=== PATIENT | female | born 1970 | race Caucasian/White ===

== ENCOUNTER 2023-02-03 12:15 | Outpatient (REF) | payer BC, SELFPAY ==
[2023-02-03 12:56] LABS: Internal Control Within Normal Limits; Strep A Antigen Screen Negative
[2023-02-04 15:33] LABS: SARS-CoV-2 Ag Negative (NEGATIVE)
[2023-02-04 15:34] LABS: SARS-CoV-2 NAA NOT DETECTED (NOT DETECTE)
== END 2023-02-03 12:16 ==
LOC: LAB 12:15
PROVIDERS: PCP Nurse Practitioner Family; Visit Provider Nurse Practitioner Family
DX: Z20.822 Contact with and (suspected) exposure to COVID-19 (principal); J02.9 Acute pharyngitis, unspecified
CPT/HCPCS: 87081; 87635; 87804; 87811; 87880; U0003

== ENCOUNTER 2023-02-18 01:23 | Emergency (ER) | payer BC, SELFPAY ==
[2023-02-18 01:26] VITALS: BP 176/90; PULSE 79; RESP 18; TEMP 36.7; O2SAT 100
--- NOTE | 2023-02-18 01:31 | XR_ITS ---
The [address] [address] Patient Name: CONSTANTINO CARDOSO MRN: [id number] date: 1970 Sex: F Assigned Patient Location: ER Current Patient Location: ED.MAIN Accession/Order Number: [id number] Exam Date: 02/18/2023 01:45 Report Date: 02/18/2023 03:15 At the request of: STEPHANIE MULLIGAN Procedure: XR wrist RT min 3V EXAM: XR wrist RT min 3V 02/18/2023 1:45 AM EDT OH001 CLINICAL STATEMENT: fall, right wrist pain COMPARISON: No prior studies are available at the time of dictation. TECHNIQUE: AP and lateral views of the right wrist are submitted. FINDINGS: The osseous structures are intact and in anatomic alignment. There is no acute fracture and/or dislocation. The joint spaces are preserved. Soft tissues are unremarkable. Bone mineralization is within normal limits for the patient's age. IMPRESSION: Unremarkable wrist radiograph. Electronically authenticated by: CALLY LANTIGUA Date: 02/18/2023 03:15
--- NOTE | 2023-02-18 01:47 | XR_ITS ---
The [address] [address] Patient Name: CONSTANTINO CARDOSO MRN: [id number] date: 1970 Sex: F Assigned Patient Location: ER Current Patient Location: ER Accession/Order Number: [id number] Exam Date: 02/18/2023 01:45 Report Date: 02/18/2023 03:18 At the request of: STEPHANIE MULLIGAN Procedure: XR forearm RT 2V EXAM: XR forearm RT 2V 02/18/2023 1:45 AM EDT OH001 CLINICAL STATEMENT: fall, wrist and forearm pain COMPARISON: No prior studies are available at the time of dictation. TECHNIQUE: AP and lateral views of the right forearm are submitted. FINDINGS: The osseous structures are intact and in anatomic alignment. There is no acute fracture and/or dislocation. The joint spaces are preserved. Soft tissues are unremarkable. Bone mineralization is within normal limits for the patient's age. IMPRESSION: Unremarkable forearm radiograph. Electronically authenticated by: CALLY LANTIGUA Date: 02/18/2023 03:18
--- NOTE | 2023-02-18 02:11 | ED.UPPEXIN1 ---
HPI - Extremity Injury (Upper) General Chief Complaint: Extremity Injury, Upper Stated Complaint: RIGHT ARM Time Seen by Provider: 02/18/23 01:31 Source: patient Mode of arrival: walk-in Limitations: no limitations History of Present Illness HPI narrative: patient fell between 1030pm and 11pm and used her right hand to break her fall. She comnplains of pain in the right wrist and right forearm. No meds taken [employer]CH[employer]IC. No head injury, LOC or injury to the neck or back. Related Data Allergies Allergy/AdvReac Type Severity Reaction Status Date / Time cyclobenzaprine Allergy Severe Anaphylaxis Verified 02/18/23 01:35 [From Flexeril] Penicillins Allergy Intermediate Hives Verified 02/18/23 01:35 [facility] Smoking status: Former smoker Exam Narrative Exam Narrative: Nurses note and vital signs reviewed and patient is not hypoxic. afebrile General: The patient appears well and in no apparent distress. Patient is resting comfortably on cart. GCS = 15. Skin: Warm, dry, no pallor noted. Head: Normocephalic, atraumatic Neck: Supple, trachea mid-line. Full ROM and no cervical spinal tenderness. Eyes: PERRLA, EOMI Cardiovascular: normal peripheral perfusion Respiratory: Patient is in no distress Musculoskeletal: tenderness to the right wrist and distal right forearm. No deformity. Pain with movement of the right wrist. no additional sign of long bone fracture. Moves remaining extremities in all modalities with 5/5 strength. 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 Psychiatric: Cooperative Constitutional Vital Signs - 24 hr 02/18/23 01:26 Temperature 98.1 F Pulse Rate [Monitor] 79 Respiratory Rate 18 Blood Pressure [Left Arm] 176/90 H Pulse Oximetry 100 Oxygen Delivery Method Room Air Course Vital Signs Vital signs: Vital Signs Temperature 98.1 F 02/18/23 01:26 Pulse Rate 79 02/18/23 01:26 Respiratory Rate 18 02/18/23 01:26 Blood Pressure 176/90 H 02/18/23 01:26 Pulse Oximetry 100 02/18/23 01:26 Oxygen Delivery Method Room Air 02/18/23 01:26 Temperature 98.1 F 02/18/23 01:26 Pulse Rate 79 06/16/23 01:26 Respiratory Rate 18 02/18/23 01:26 Blood Pressure 176/90 H 02/18/23 01:26 Pulse Oximetry 100 02/18/23 01:26 Oxygen Delivery Method Room Air 02/18/23 01:26 MDM - Extremity Injury (Upper) MDM Narrative Medical decision making narrative: no fracture identified on the patient's right wrist and right forearm xrays. Patient informed of results. ED nurse applied a velcro adjustable splint to the patient's right wrist and she neurovascularly intact afterward. Patient can see her PCP for follow up. Discussed use of OTC pain meds such as tylenol Imaging Data xr right wrist & forearm: My impression: no acute fractures of the right forearm, right wrist and proximal right hand Discharge Plan Discharge Chief Complaint: Extremity Injury, Upper Clinical Impression: Right wrist sprain Patient Disposition: Home, Self-Care Time of Disposition Decision: 02:11 Instructions: Wrist Sprain (ED) Stand Alone Forms: Portal Instructions Referrals: STEPHANIE YOUSSEF [Primary Care Provider] - 1 week
== END 2023-02-18 02:24 | disposition home or self-care (01) ==
PROVIDERS: Emergency Provider Emergency Medicine; PCP Nurse Practitioner Family
DX: S63.501A Unspecified sprain of right wrist, initial encounter (principal); W19.XXXA Unspecified fall, initial encounter
CPT/HCPCS: 73090; 73110; 99284

== ENCOUNTER 2023-02-26 00:05 | Emergency (ER) | payer BC, SELFPAY ==
[2023-02-26 00:15] VITALS: BP 160/90; PULSE 84; RESP 24; TEMP 36.6; O2SAT 97; BMI 31.0
[2023-02-26 00:41] VITALS: O2SAT 97
--- NOTE | 2023-02-26 00:44 | ED.GENADUL1 ---
HPI - General Adult General Chief complaint: Weakness Stated complaint: HIGH BLOOD PRESSURE Time Seen by Provider: 02/26/23 00:30 Source: patient Mode of arrival: walk-in Limitations: no limitations History of Present Illness HPI narrative: This 52-year-old female with chronic stomach problems and migraine headaches presents for evaluation of generalized illness. She states she hasn't been feeling well for the past several days. She came home from work the other day and threw up. She has been seen recently at [facility] and [facility] or different complaints. She has had x-rays and labs done with no definitive diagnosis made. She uses Zofran for nausea but states she doesn't know the name of the other medications that she is on. She denies any fever or cough. She denies any chest pain or shortness of breath. When I asked her what her specific complaints were today she said that she has a throbbing headache and her stomach hurts and she is nauseous. Related Data Home Medications Medication Instructions Recorded Confirmed bisacodyl 5 mg tablet,delayed 5 mg PO DAILY 02/26/23 02/26/23 release (Gentle Laxative (bisacodyl)) omeprazole 40 mg capsule,delayed 40 mg PO DAILY 02/26/23 02/26/23 release ondansetron 4 mg disintegrating 4 mg translingual Q4H PRN nausea 02/26/23 02/26/23 tablet and vomiting oxcarbazepine 150 mg tablet 150 mg PO DAILY 02/26/23 02/26/23 promethazine 25 mg tablet 25 mg PO Q12H PRN nausea and 02/26/23 02/26/23 vomiting rimegepant 75 mg disintegrating 75 mg PO PRN migraine headache 02/26/23 tablet ([facility]) sucralfate 1 gram tablet 1 g PO Q6H 02/26/23 02/26/23 Allergies Allergy/AdvReac Type Severity Reaction Status Date / Time cyclobenzaprine Allergy Severe Anaphylaxis Verified 02/26/23 00:20 [From Flexeril] Penicillins Allergy Intermediate Hives Verified 02/26/23 00:20 Review of Systems ROS Status of ROS 10 or more systems reviewed and unremarkable except as noted in history and below PFSH PFSH Social History Smoking status: Former smoker Exam Constitutional Vital Signs - 24 hr 02/26/23 00:15 02/26/23 00:41 02/26/23 01:45 Temperature 98 F Pulse Rate [Monitor] 84 75 Respiratory Rate 24 16 Blood Pressure [Left Arm] 160/90 H 142/78 H Pulse Oximetry 97 97 97 Oxygen Delivery Method Room Air Room Air Room Air Documenting provider has reviewed patient's vital signs: yes (vital signs reviewed, the patient is afebrile with normal pulse, blood pressure is elevated at 160/90, she is not hypoxic with pulse ox of 97 percent on room air) Common normals: no apparent distress and oriented x3 General appearance: cooperative and comfortable Nutritional appearance: obese Orientation/consciousness: Yes awake, Yes oriented to person and Yes oriented to time HENMT Common normals: normocephalic and head/scalp atraumatic Head and scalp: normal to inspection Face and sinus: normal facial exam Mouth: oral and palatal mucosa normal Eye Common normals: PERRL, EOMs intact bilaterally and conjunctivae normal (No photophobia) General eye: normal appearance of both eyes Pupil: PERRL Neck & C-Spine Common normals: full ROM, no lymphadenopathy and supple Respiratory Common normals: normal respiratory effort, no retractions, no use of accessory muscles and clear to auscultation bilaterally Effort & inspection: able to speak in complete sentences Auscultation: clear to auscultation bilaterally Cardio Common normals: no JVD, regular rate, regular rhythm, S1 normal heart sound, S2 normal heart sound, no gallops, no clicks and no murmurs GI Common normals: Normal to inspection, nondistended, normoactive bowel sounds present and no bruits (Obese, soft, generalized abdominal tenderness with no R/G/R) Auscultation: normoactive bowel sounds Palpation: soft Extremity Common normals: normal to inspection, full ROM and no calf tenderness Neuro Common normals: oriented x3, CN's II-XII intact bilaterally, moves all extremities, no focal motor deficits and no sensory deficits noted Psych Common normals: mental status grossly normal Course Course Hospital Course: She was medicated with Toradol and Phenergan for her headache and abdominal pain and on reevaluation is feeling better. Her pain has improved but is not gone. I offered her a pain pill to take so that she can go home and get some rest and she is in agreement with this plan. Her symptoms are otherwise chronic in nature. She has been seen in 2 other emergency departments this week for evaluation of her chronic abdominal pain, headaches and other conditions and I feel she is stable for discharge. Vital Signs Vital signs: Vital Signs Temperature 98 F 02/26/23 00:15 Pulse Rate 84 02/26/23 00:15 Respiratory Rate 24 02/26/23 00:15 Blood Pressure 160/90 H 02/26/23 00:15 Pulse Oximetry 97 02/26/23 00:15 Oxygen Delivery Method Room Air 02/26/23 00:15 Temperature 98 F 02/26/23 00:15 Pulse Rate 75 02/26/23 01:45 Respiratory Rate 16 02/26/23 01:45 Blood Pressure 142/78 H 02/26/23 01:45 Pulse Oximetry 97 02/26/23 01:45 Oxygen Delivery Method Room Air 02/26/23 01:45 Medical Decision Making [facility] Narrative Medical decision making narrative: See MD in Course section Discharge Plan Discharge Chief Complaint: Weakness Clinical Impression: Headache, migraine, Abdominal pain, chronic, generalized Time of Disposition Decision: 02:13 Prescriptions / Home Meds: No Action bisacodyl [Gentle Laxative (bisacodyl)] 5 mg tablet,delayed release (DR/EC) 5 mg PO DAILY omeprazole 40 mg capsule,delayed release(DR/EC) 40 mg PO DAILY ondansetron 4 mg tablet,disintegrating 4 mg translingual Q4H PRN (Reason: nausea and vomiting) oxcarbazepine 150 mg tablet 150 mg PO DAILY Patient Comments: 1 tablet in AM and 2 in PM promethazine 25 mg tablet 25 mg PO Q12H PRN (Reason: nausea and vomiting) Nurtec ODT 75 mg tablet,disintegrating 75 mg PO PRN (Reason: migraine headache) sucralfate 1 gram tablet 1 g PO Q6H Instructions: Acute Headache (ED), Abdominal Pain (ED) Stand Alone Forms: Portal Instructions Referrals: STEPHANIE YOUSSEF [Primary Care Provider] - 1 week
[2023-02-26] MEDS: PROMETHAZINE HCL 25 MG/ML VIAL IM (01:15)
[2023-02-26] MEDS: KETOROLAC TROMETHAMINE 60 MG/2 ML VIAL IM (01:15)
[2023-02-26 01:45] VITALS: BP 142/78; PULSE 75; RESP 16; O2SAT 97
== END 2023-02-26 02:21 | disposition home or self-care (01) ==
PROVIDERS: Emergency Provider Emergency Medicine; PCP Nurse Practitioner Family
DX: R10.9 Unspecified abdominal pain (principal); G89.29 Other chronic pain; G43.909 Migraine, unspecified, not intractable, without status migrainosus; Z79.899 Other long term (current) drug therapy; Z87.891 Personal history of nicotine dependence; E66.9 Obesity, unspecified; Z68.31 Body mass index [BMI] 31.0-31.9, adult
CPT/HCPCS: 96372; 99284

== ENCOUNTER 2023-03-25 18:10 | Emergency (ER) | payer BC, SELFPAY ==
[2023-03-25] VITALS (8 sets, daily range): BP systolic 113–160; BP diastolic 70–98; PULSE 77; RESP 20; TEMP 36.6; O2SAT 98; BMI 31.1
--- NOTE | 2023-03-25 18:25 | XR_ITS ---
The [address] [address] Patient Name: CONSTANTINO CARDOSO MRN: [id number] date: 1970 Sex: F Assigned Patient Location: ER Current Patient Location: ER Accession/Order Number: [id number] Exam Date: 03/25/2023 19:54 Report Date: 03/25/2023 21:07 At the request of: DIPAK SPENCER Procedure: XR acute abdomen series EXAM TYPE: XR acute abdomen series EXAM DATE AND TIME: 03/25/2023 7:54 PM EDT INDICATION: 52 years old Female with COMPARISON: None. TECHNIQUE: Frontal view of the chest. Supine and upright views of the abdomen. FINDINGS: No pneumothorax, pleural effusion or focal consolidation. Heart size is within normal limits. There are dilated, air-filled small bowel loops in the left upper quadrant. No subdiaphragmatic free intraperitoneal air. No pathologic calcifications. Right upper quadrant surgical clips are noted. Visualized osseous structures appear unremarkable. XR/XR acute abdomen series IMPRESSION: Dilated, air-filled small bowel loops in the left upper quadrant consistent with ileus or early closed loop obstruction. Electronically authenticated by: Perry DELGADO Date: 03/25/2023 21:07
[2023-03-25] MEDS: 0.9 % SODIUM CHLORIDE 1,000 ML 100 ML IV (18:36)
[2023-03-25] MEDS: ONDANSETRON PF 4 MG/2 ML VIAL IV ×2 (18:37→19:36)
[2023-03-25 18:46] LABS: Basophils Percent Auto 0.6 % (0.2-2.0); Eosinophils Absolute Auto 0.3 10^3/uL (0.0-0.7); Eosinophils Percent Auto 4.6 % (0.9-7.0); Hemoglobin 12.5 g/dL (12.0-16.0); Immature Granulocytes Abs Auto 0.01 10^3/uL (0.00-0.03); Immature Granulocytes Pct Auto 0.2 % (0.0-0.5); Lymphocytes Absolute Auto 2.2 10^3/uL (1.2-3.8); Lymphocytes Percent Auto 40.1 % (20.5-60.0); Mean Corpuscular HGB Conc 32.9 g/dL (29.9-35.2); Mean Corpuscular Hemoglobin 28.8 pg (26.7-34.0); Mean Corpuscular Volume 87.6 fL (81.0-99.0); Mean Platelet Volume 9.7 fL (9.5-13.5); Monocytes Absolute Auto 0.4 10^3/uL (0.3-0.8); Monocytes Percent Auto 6.4 % (1.7-12.0); Neutrophils Absolute Auto 2.6 10^3/uL (1.4-6.5); Neutrophils Percent Auto 48.1 % (43.0-75.0); Platelet Count 356 10^3/uL (150-450); Red Blood Count 4.34 10^6/uL (4.20-5.40); Red Cell Distribution Width 13.1 % (11.0-15.0); White Blood Count 5.4 10^3/uL (4.0-11.0)
--- NOTE | 2023-03-25 18:50 | ED.GENADUL1 ---
Documented by User: EUN Bowen 03/25/23 20:49 HPI - General Adult General Chief complaint: Nausea/Vomiting/Diarrhea Stated complaint: ABDOMINAL PAIN, N/V Time Seen by Provider: 03/25/23 18:25 Source: patient Mode of arrival: walk-in History of Present Illness HPI narrative: patient is a 52-year-old female presents to the Emergency Room with concerns of epigastric abdominal pain. Patient reports a prior history of surgery for hiatal hernia and having intermittent bouts of epigastric abdominal pain that can be severe. Patient states she is scheduled for an EGD on April 14. She was recently seen at [facility] once on 03/23/23 when her symptoms started. Patient states she has been compliant with her Carafate, but vomiting exacerbates her current symptoms. She denies any fevers or chills. She's had previous cholecystectomy. 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 Patient reports she's had regular normal bowel movements daily but difficulty eating. Patient states sometimes she has trouble swallowing food but denies esophageal food bolus symptoms today.patient describes her pain as full bloated colicky and occasionally sharp in the epigastric abdomen. Location: Reports abdomen Related Data Home Medications Medication Instructions Recorded Confirmed bisacodyl 5 mg tablet,delayed 5 mg PO DAILY 02/26/23 02/26/23 release (Gentle Laxative (bisacodyl)) omeprazole 40 mg capsule,delayed 40 mg PO DAILY 02/26/23 02/26/23 release ondansetron 4 mg disintegrating 4 mg translingual Q4H PRN nausea 02/26/23 02/26/23 tablet and vomiting oxcarbazepine 150 mg tablet 150 mg PO DAILY 02/26/23 02/26/23 promethazine 25 mg tablet 25 mg PO Q12H PRN nausea and 02/26/23 02/26/23 vomiting rimegepant 75 mg disintegrating 75 mg PO PRN migraine headache 02/26/23 tablet (Nurtec ODT) sucralfate 1 gram tablet 1 g PO Q6H 02/26/23 02/26/23 Allergies Allergy/AdvReac Type Severity Reaction Status Date / Time cyclobenzaprine Allergy Severe Anaphylaxis Verified 02/26/23 00:20 [From Flexeril] Penicillins Allergy Intermediate Hives Verified 02/26/23 00:20 Review of Systems ROS Constitutional Denies: fever or chills Eyes Denies: change in vision Ears, nose, mouth, and throat Denies: throat pain, neck pain or dry mouth Cardiovascular Denies: chest pain or palpitations Respiratory Denies: shortness of breath or cough Gastrointestinal Reports: abdominal pain, nausea and vomiting; Denies: coffee grounds in vomit Genitourinary Denies: painful urination Musculoskeletal Denies: back pain, neck pain or extremity pain Integumentary/Breast Denies: rash, itching or redness Neurological Denies: headache or numbness in extremities Psychiatric Denies: anxiety or mood swings Endocrine Denies: excessive urination Allergic/Immunologic Denies: hives PFSH PFSH Social History Smoking status: Former smoker Exam Narrative Exam Narrative: Nurses notes and vital signs reviewed and patient is not hypoxic. General: The patient appears well, but uncomfortable holding her epigastrium laying on her right side. Skin: Warm, dry, no pallor noted.no evidence of rash Head: Normocephalic, atraumatic Neck: Supple, trachea mid-line, no tenderness, no lymphadenopathy Eye: Pupils are equal, round and reactive to light, EOMI Ears, Nose, Mouth, and Throat: external exam unremarkable. Cardiovascular: Regular Rate and Rhythm Respiratory: Patient is in no distress, no accessory muscle use, lungs are clear to auscultation, no wheezing, rales or rhonchi. Chest Wall: no tenderness Back: non-tender, no CVA tenderness Musculoskeletal: normal ROM, no tenderness, no swelling GI: bowel sounds present, scar consistent with open choleecystectomy. Notable tenderness in the epigastric region. No guarding or rebound. Neurological: A&O x4 Psychiatric: Cooperative Constitutional Vital Signs, click to edit/add: Last Vital Signs Temp 97.9 F 03/25/23 18:16 Pulse 77 03/25/23 18:16 Resp 20 03/25/23 18:16 BP 150/82 H 03/26/23 00:31 Pulse Ox 98 03/25/23 18:16 O2 Del Method Room Air 03/25/23 18:16 Course Vital Signs Vital signs: Vital Signs Temperature 97.9 F 03/25/23 18:16 Pulse Rate 77 03/25/23 18:16 Respiratory Rate 20 03/25/23 18:16 Blood Pressure 160/98 H 03/25/23 18:16 Pulse Oximetry 98 03/25/23 18:16 Oxygen Delivery Method Room Air 03/25/23 18:16 Temperature 97.9 F 03/25/23 18:16 Pulse Rate 77 03/25/23 18:16 Respiratory Rate 20 03/25/23 18:16 Blood Pressure 150/82 H 03/26/23 00:31 Pulse Oximetry 98 03/25/23 18:16 Oxygen Delivery Method Room Air 03/25/23 18:16 Medical Decision Making MDM Narrative Medical decision making narrative: patient presents with acute on chronic epigastric pain: medicated with Levsin, gastrointestinal cocktail, Ativan 1 mg IV and Toradol. [place] [facility] [place] laboratory studies.patient admits to having multiple abdominal CTs and would like to hold if not necessary. She is agreeable to x-ray. patient's troponin today was elevated, she was medicated with 324 mg of aspirin, a repeat EKG was done which appears unremarkable. Patient awaiting imaging and medication as ordered. Her troponin from prior [place] [facility] [place] was noted to be normal. Repeat troponin noted to be slightly decreased from before. Medical Records Medical records reviewed: Yes I reviewed the patient's medical records Medical records narrative: reviewed medical records from fire was Emergency Room, medications administered. Patient had laboratory studies done with fairly normal CMP. Urinalysis without evidence of infection. Troponin within normal limits, CT of the abdomen and pelvis noted for no bowel or urinary tract obstruction and no other acute findings. Lab Data Labs: Lab Results 03/25/23 03/25/23 03/25/23 Range/Units 18:30 19:05 19:30 WBC 5.4 (4.0-11.0) 10^3/uL RBC 4.34 (4.20-5.40) 10^6/uL Hgb 12.5 (12.0-16.0) g/dL Hct 38.0 (36.0-48.0) % MCV 87.6 (81.0-99.0) fL MCH 28.8 (26.7-34.0) pg MCHC 32.9 (29.9-35.2) g/dL RDW 13.1 (11.0-15.0) % Plt Count 356 (150-450) 10^3/uL MPV 9.7 (9.5-13.5) fL Neut % (Auto) 48.1 (43.0-75.0) % Lymph % (Auto) 40.1 (20.5-60.0) % Rabun % (Auto) 6.4 (1.7-12.0) % Eos % (Auto) 4.6 (0.9-7.0) % Baso % (Auto) 0.6 (0.2-2.0) % Neut # (Auto) 2.6 (1.4-6.5) 10^3/uL Lymph # (Auto) 2.2 (1.2-3.8) 10^3/uL Rabun # (Auto) 0.4 (0.3-0.8) 10^3/uL Eos # (Auto) 0.3 (0.0-0.7) 10^3/uL Baso # (Auto) 0.0 (0.0-0.1) 10^3/uL Abs Immat Gran (auto) 0.01 (0.00-0.03) 10^3/uL Imm/Tot Granulo (auto) 0.2 (0.0-0.5) % PT 10.3 (9.0-11.6) sec INR 0.97 APTT 32.9 (22.3-36.2) sec Sodium 139 (136-145) mmol/L Potassium 3.6 (3.5-5.1) mmol/L Chloride 104 (98-107) mmol/L Carbon Dioxide 24.3 (21.0-32.0) mmol/L Anion Gap 14.3 BUN 13.0 (7.0-18.0) mg/dL Creatinine 0.77 (0.55-1.02) mg/dL Est GFR ( Amer) >60 (>=60) Est GFR (Non-Af Amer) >60 (>=60) BUN/Creatinine Ratio 16.9 Glucose 101 (74-106) mg/dL Lactate 0.5 (0.4-2.0) mmol/L Calcium 8.7 (8.5-10.1) mg/dL Total Bilirubin 0.4 (0.2-1.0) mg/dL AST 14 L (15-37) U/L ALT 21 (14-59) U/L Alkaline Phosphatase 133 H (46-116) U/L Troponin I High Sens 95.3 H* (4.0-51.3) pg/mL Total Protein 7.3 (6.4-8.2) g/dL Albumin 3.8 (3.4-5.0) g/dL Globulin 3.5 g/dL Albumin/Globulin Ratio 1.1 Lipase 65.0 L (73.0-393.0) U/L Urine Color Lt. yellow (YELLOW) Urine Clarity Clear (CLEAR) Urine pH 6.0 (5.0-9.0) Ur Specific [place] 1.025 (1.005-1.025) Urine Protein Negative (NEG/TRACE) mg/dL Urine Glucose (UA) Negative (NEGATIVE) mg/dL Urine Ketones Negative (NEGATIVE) mg/dL Urine Occult Blood Trace-i (NEGATIVE) Urine Nitrite Positive A (NEGATIVE) Urine Bilirubin Negative (NEGATIVE) Urine Urobilinogen 0.2 (0.2-1.0) EU/dL Ur Leukocyte Esterase Small A (NEGATIVE) Urine RBC 0-2 (0-2) #/HPF Urine WBC 10-20 A (NONE SEEN) #/HPF Ur Squamous Epith Cells Few A (NONE/RARE) #/LPF Urine Crystals None seen (None Seen) #/HPF Urine Bacteria Large A (NONE SEEN) #/HPF Urine Casts None seen (NONE SEEN) #/LPF Urine Mucus Small A (NONE SEEN) Ur Culture Indicated? Yes 03/25/23 03/25/23 Range/Units 20:06 22:18 WBC (4.0-11.0) 10^3/uL RBC (4.20-5.40) 10^6/uL Hgb (12.0-16.0) g/dL Hct (36.0-48.0) % MCV (81.0-99.0) fL MCH (26.7-34.0) pg MCHC (29.9-35.2) g/dL RDW (11.0-15.0) % Plt Count (150-450) 10^3/uL MPV (9.5-13.5) fL Neut % (Auto) (43.0-75.0) % Lymph % (Auto) (20.5-60.0) % Rabun % (Auto) (1.7-12.0) % Eos % (Auto) (0.9-7.0) % Baso % (Auto) (0.2-2.0) % Neut # (Auto) (1.4-6.5) 10^3/uL Lymph # (Auto) (1.2-3.8) 10^3/uL Rabun # (Auto) (0.3-0.8) 10^3/uL Eos # (Auto) (0.0-0.7) 10^3/uL Baso # (Auto) (0.0-0.1) 10^3/uL Abs Immat Gran (auto) (0.00-0.03) 10^3/uL Imm/Tot Granulo (auto) (0.0-0.5) % PT (9.0-11.6) sec INR APTT (22.3-36.2) sec Sodium (136-145) mmol/L Potassium (3.5-5.1) mmol/L Chloride (98-107) mmol/L Carbon Dioxide (21.0-32.0) mmol/L Anion Gap BUN (7.0-18.0) mg/dL Creatinine (0.55-1.02) mg/dL Est GFR ( Amer) (>=60) Est GFR (Non-Af Amer) (>=60) BUN/Creatinine Ratio Glucose (74-106) mg/dL Lactate (0.4-2.0) mmol/L Calcium (8.5-10.1) mg/dL Total Bilirubin (0.2-1.0) mg/dL AST (15-37) U/L ALT (14-59) U/L Alkaline Phosphatase (46-116) U/L Troponin I High Sens 90.5 H* 83.5 H* (4.0-51.3) pg/mL Total Protein (6.4-8.2) g/dL Albumin (3.4-5.0) g/dL Globulin g/dL Albumin/Globulin Ratio Lipase (73.0-393.0) U/L Urine Color (YELLOW) Urine Clarity (CLEAR) Urine pH (5.0-9.0) Ur Specific [place] (1.005-1.025) Urine Protein (NEG/TRACE) mg/dL Urine Glucose (UA) (NEGATIVE) mg/dL Urine Ketones (NEGATIVE) mg/dL Urine Occult Blood (NEGATIVE) Urine Nitrite (NEGATIVE) Urine Bilirubin (NEGATIVE) Urine Urobilinogen (0.2-1.0) EU/dL Ur Leukocyte Esterase (NEGATIVE) Urine RBC (0-2) #/HPF Urine WBC (NONE SEEN) #/HPF Ur Squamous Epith Cells (NONE/RARE) #/LPF Urine Crystals (None Seen) #/HPF Urine Bacteria (NONE SEEN) #/HPF Urine Casts (NONE SEEN) #/LPF Urine Mucus (NONE SEEN) Ur Culture Indicated? ECG Data Attestation: ?I have reviewed the pertinent ECG results. Interpretation: EKG interpretation: Emergency Department physician interpretation, normal sinus rhythm 60 bpm, no ectopy, no ST segment elevation, T-wave inversion in lead three and V1 axis. repeat EKG19:34 sinus hannah 51 bpm, no ST elevation. T-wave inversion in lead three improved Discharge Plan Discharge Chief Complaint: Nausea/Vomiting/Diarrhea Clinical Impression: UTI (urinary tract infection), Elevated troponin, Epigastric abdominal pain Patient Disposition: [facility] Time of Disposition Decision: 23:35 Discharge Location: [facility] Condition: Good Mode of Transportation: EMS Documented by User: Cathy Sanon MD 03/26/23 02:41 HPI - General Adult General Chief complaint: Nausea/Vomiting/Diarrhea Stated complaint: ABDOMINAL PAIN, N/V Time Seen by Provider: 03/25/23 18:25 Related Data Home Medications Medication Instructions Recorded Confirmed bisacodyl 5 mg tablet,delayed 5 mg PO DAILY 02/26/23 02/26/23 release (Gentle Laxative (bisacodyl)) omeprazole 40 mg capsule,delayed 40 mg PO DAILY 02/26/23 02/26/23 release ondansetron 4 mg disintegrating 4 mg translingual Q4H PRN nausea 02/26/23 02/26/23 tablet and vomiting oxcarbazepine 150 mg tablet 150 mg PO DAILY 02/26/23 02/26/23 promethazine 25 mg tablet 25 mg PO Q12H PRN nausea and 02/26/23 02/26/23 vomiting rimegepant 75 mg disintegrating 75 mg PO PRN migraine headache 02/26/23 tablet (Nurtec ODT) sucralfate 1 gram tablet 1 g PO Q6H 02/26/23 02/26/23 Allergies Allergy/AdvReac Type Severity Reaction Status Date / Time cyclobenzaprine Allergy Severe Anaphylaxis Verified 02/26/23 00:20 [From Flexeril] Penicillins Allergy Intermediate Hives Verified 02/26/23 00:20 PFS PFS Social History Smoking status: Former smoker Exam Constitutional Vital Signs, click to edit/add: Last Vital Signs Temp 97.9 F 03/25/23 18:16 Pulse 77 03/25/23 18:16 Resp 20 03/25/23 18:16 BP 150/82 H 03/26/23 00:31 Pulse Ox 98 03/25/23 18:16 O2 Del Method Room Air 03/25/23 18:16 Course Vital Signs Vital signs: Vital Signs Temperature 97.9 F 03/25/23 18:16 Pulse Rate 77 03/25/23 18:16 Respiratory Rate 20 03/25/23 18:16 Blood Pressure 160/98 H 03/25/23 18:16 Pulse Oximetry 98 03/25/23 18:16 Oxygen Delivery Method Room Air 03/25/23 18:16 Temperature 97.9 F 03/25/23 18:16 Pulse Rate 77 03/25/23 18:16 Respiratory Rate 20 03/25/23 18:16 Blood Pressure 150/82 H 03/26/23 00:31 Pulse Oximetry 98 03/25/23 18:16 Oxygen Delivery Method Room Air 03/25/23 18:16 Medical Decision Making [facility] Narrative Medical decision making narrative: patient presents with acute on chronic epigastric pain: medicated with Levsin, gastrointestinal cocktail, Ativan 1 mg IV and Toradol. [place] [facility] [place] laboratory studies.patient admits to having multiple abdominal CTs and would like to hold if not necessary. She is agreeable to x-ray. patient's troponin today was elevated, she was medicated with 324 mg of aspirin, a repeat EKG was done which appears unremarkable. Patient awaiting imaging and medication as ordered. Her troponin from prior [place] [facility] [place] was noted to be normal. Repeat troponin noted to be slightly decreased from before. Patient was seen and evaluated by me. She states she had a stress test 4 years ago but has not had any other cardiology evaluation. 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 Patient states she had some chest pain earlier today but does not have any went home patient states she hadn't dyspnea on exertion for many months. Patient states abdominal series question about obstructions a CT scan was done and it is not showing anything acute. The patient was treated with Levaquin for a urinary tract infection. [facility] advised no heparin, no nitro drip, no Lovenox transfer the patient and they will have the patient evaluated, monitored. Was given an aspirin. Attending physician attestation I have seen and evaluated this patient. I have reviewed the mid-level provider?s documentation medical decision making and treatment plan. I agree with the mid-level provider?s assessment, and plan. Lab Data Labs: Lab Results 03/25/23 03/25/23 03/25/23 Range/Units 18:30 19:05 19:30 WBC 5.4 (4.0-11.0) 10^3/uL RBC 4.34 (4.20-5.40) 10^6/uL Hgb 12.5 (12.0-16.0) g/dL Hct 38.0 (36.0-48.0) % MCV 87.6 (81.0-99.0) fL MCH 28.8 (26.7-34.0) pg MCHC 32.9 (29.9-35.2) g/dL RDW 13.1 (11.0-15.0) % Plt Count 356 (150-450) 10^3/uL MPV 9.7 (9.5-13.5) fL Neut % (Auto) 48.1 (43.0-75.0) % Lymph % (Auto) 40.1 (20.5-60.0) % Rabun % (Auto) 6.4 (1.7-12.0) % Eos % (Auto) 4.6 (0.9-7.0) % Baso % (Auto) 0.6 (0.2-2.0) % Neut # (Auto) 2.6 (1.4-6.5) 10^3/uL Lymph # (Auto) 2.2 (1.2-3.8) 10^3/uL Rabun # (Auto) 0.4 (0.3-0.8) 10^3/uL Eos # (Auto) 0.3 (0.0-0.7) 10^3/uL Baso # (Auto) 0.0 (0.0-0.1) 10^3/uL Abs Immat Gran (auto) 0.01 (0.00-0.03) 10^3/uL Imm/Tot Granulo (auto) 0.2 (0.0-0.5) % PT 10.3 (9.0-11.6) sec INR 0.97 APTT 32.9 (22.3-36.2) sec Sodium 139 (136-145) mmol/L Potassium 3.6 (3.5-5.1) mmol/L Chloride 104 (98-107) mmol/L Carbon Dioxide 24.3 (21.0-32.0) mmol/L Anion Gap 14.3 BUN 13.0 (7.0-18.0) mg/dL Creatinine 0.77 (0.55-1.02) mg/dL Est GFR ( Amer) >60 (>=60) Est GFR (Non-Af Amer) >60 (>=60) BUN/Creatinine Ratio 16.9 Glucose 101 (74-106) mg/dL Lactate 0.5 (0.4-2.0) mmol/L Calcium 8.7 (8.5-10.1) mg/dL Total Bilirubin 0.4 (0.2-1.0) mg/dL AST 14 L (15-37) U/L ALT 21 (14-59) U/L Alkaline Phosphatase 133 H (46-116) U/L Troponin I High Sens 95.3 H* (4.0-51.3) pg/mL Total Protein 7.3 (6.4-8.2) g/dL Albumin 3.8 (3.4-5.0) g/dL Globulin 3.5 g/dL Albumin/Globulin Ratio 1.1 Lipase 65.0 L (73.0-393.0) U/L Urine Color Lt. yellow (YELLOW) Urine Clarity Clear (CLEAR) Urine pH 6.0 (5.0-9.0) Ur Specific [place] 1.025 (1.005-1.025) Urine Protein Negative (NEG/TRACE) mg/dL Urine Glucose (UA) Negative (NEGATIVE) mg/dL Urine Ketones Negative (NEGATIVE) mg/dL Urine Occult Blood Trace-i (NEGATIVE) Urine Nitrite Positive A (NEGATIVE) Urine Bilirubin Negative (NEGATIVE) Urine Urobilinogen 0.2 (0.2-1.0) EU/dL Ur Leukocyte Esterase Small A (NEGATIVE) Urine RBC 0-2 (0-2) #/HPF Urine WBC 10-20 A (NONE SEEN) #/HPF Ur Squamous Epith Cells Few A (NONE/RARE) #/LPF Urine Crystals None seen (None Seen) #/HPF Urine Bacteria Large A (NONE SEEN) #/HPF Urine Casts None seen (NONE SEEN) #/LPF Urine Mucus Small A (NONE SEEN) Ur Culture Indicated? Yes 03/25/23 03/25/23 Range/Units 20:06 22:18 WBC (4.0-11.0) 10^3/uL RBC (4.20-5.40) 10^6/uL Hgb (12.0-16.0) g/dL Hct (36.0-48.0) % MCV (81.0-99.0) fL MCH (26.7-34.0) pg MCHC (29.9-35.2) g/dL RDW (11.0-15.0) % Plt Count (150-450) 10^3/uL MPV (9.5-13.5) fL Neut % (Auto) (43.0-75.0) % Lymph % (Auto) (20.5-60.0) % Rabun % (Auto) (1.7-12.0) % Eos % (Auto) (0.9-7.0) % Baso % (Auto) (0.2-2.0) % Neut # (Auto) (1.4-6.5) 10^3/uL Lymph # (Auto) (1.2-3.8) 10^3/uL Rabun # (Auto) (0.3-0.8) 10^3/uL Eos # (Auto) (0.0-0.7) 10^3/uL Baso # (Auto) (0.0-0.1) 10^3/uL Abs Immat Gran (auto) (0.00-0.03) 10^3/uL Imm/Tot Granulo (auto) (0.0-0.5) % PT (9.0-11.6) sec INR APTT (22.3-36.2) sec Sodium (136-145) mmol/L Potassium (3.5-5.1) mmol/L Chloride (98-107) mmol/L Carbon Dioxide (21.0-32.0) mmol/L Anion Gap BUN (7.0-18.0) mg/dL Creatinine (0.55-1.02) mg/dL Est GFR ( Amer) (>=60) Est GFR (Non-Af Amer) (>=60) BUN/Creatinine Ratio Glucose (74-106) mg/dL Lactate (0.4-2.0) mmol/L Calcium (8.5-10.1) mg/dL Total Bilirubin (0.2-1.0) mg/dL AST (15-37) U/L ALT (14-59) U/L Alkaline Phosphatase (46-116) U/L Troponin I High Sens 90.5 H* 83.5 H* (4.0-51.3) pg/mL Total Protein (6.4-8.2) g/dL Albumin (3.4-5.0) g/dL Globulin g/dL Albumin/Globulin Ratio Lipase (73.0-393.0) U/L Urine Color (YELLOW) Urine Clarity (CLEAR) Urine pH (5.0-9.0) Ur Specific [place] (1.005-1.025) Urine Protein (NEG/TRACE) mg/dL Urine Glucose (UA) (NEGATIVE) mg/dL Urine Ketones (NEGATIVE) mg/dL Urine Occult Blood (NEGATIVE) Urine Nitrite (NEGATIVE) Urine Bilirubin (NEGATIVE) Urine Urobilinogen (0.2-1.0) EU/dL Ur Leukocyte Esterase (NEGATIVE) Urine RBC (0-2) #/HPF Urine WBC (NONE SEEN) #/HPF Ur Squamous Epith Cells (NONE/RARE) #/LPF Urine Crystals (None Seen) #/HPF Urine Bacteria (NONE SEEN) #/HPF Urine Casts (NONE SEEN) #/LPF Urine Mucus (NONE SEEN) Ur Culture Indicated? Discharge Plan Discharge Chief Complaint: Nausea/Vomiting/Diarrhea Clinical Impression: UTI (urinary tract infection), Elevated troponin, Epigastric abdominal pain Patient Disposition: [facility] Time of Disposition Decision: 23:35 Discharge Location: [facility] Condition: Good Mode of Transportation: EMS
[2023-03-25 19:03] LABS: Alanine Aminotransferase 21 U/L (14-59); Albumin Globulin Ratio 1.1; Albumin Level 3.8 g/dL (3.4-5.0); Alkaline Phosphatase 133 U/L (46-116); Anion Gap 14.3; Aspartate Amino Transferase 14 U/L (15-37); BUN Creatinine Ratio 16.9; Bilirubin Total 0.4 mg/dL (0.2-1.0); Calcium 8.7 mg/dL (8.5-10.1); Carbon Dioxide 24.3 mmol/L (21.0-32.0); Chloride 104 mmol/L (98-107); Estimated GFR (African America >60 (>=60); Estimated GFR (Non-African Ame >60 (>=60); Globulin 3.5 g/dL; Glucose 101 mg/dL (74-106); Potassium 3.6 mmol/L (3.5-5.1); Sodium 139 mmol/L (136-145); Total Protein 7.3 g/dL (6.4-8.2)
[2023-03-25 19:06] LABS: Troponin I High Sensitivity 95.3 pg/mL (4.0-51.3)
--- NOTE | 2023-03-25 19:15 | ECG_ITS ---
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
[2023-03-25 19:27] LABS: INR 0.97; Partial Thromboplastin Time 32.9 sec (22.3-36.2); Prothrombin Time 10.3 sec (9.0-11.6)
[2023-03-25 19:29] LABS: Lactate/Lactic Acid 0.5 mmol/L (0.4-2.0)
[2023-03-25] MEDS: lidocaine HCL 15 ML, MAG HYDROX/ALUMINUM HYD/SIMETH 30 ML, HYOSCYAMINE SULFATE 0.25 MG PO (19:35)
[2023-03-25] MEDS: KETOROLAC TROMETHAMINE 30 MG/ML VIAL IVP (19:36)
[2023-03-25] MEDS: PANTOPRAZOLE SODIUM 40 MG VIAL IV (19:36)
[2023-03-25] MEDS: LORAZEPAM 2 MG/ML 1 ML VIAL 1 MG IV (19:36)
--- NOTE | 2023-03-25 19:38 | ECG_ITS ---
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
[2023-03-25] MEDS: ASPIRIN 81 MG TAB.CHEW 324 MG PO (19:49)
[2023-03-25 20:06] LABS: Bilirubin Urine NEGATIVE (NEGATIVE); Blood Urine TRACE-I (NEGATIVE); Clarity Urine CLEAR (CLEAR); Color Urine LT. YELLOW (YELLOW); Glucose Urine UA NEGATIVE (NEGATIVE); Ketones Urine NEGATIVE (NEGATIVE); Leukocyte Esterase Urine SMALL (NEGATIVE); Nitrite Urine POSITIVE (NEGATIVE); Protein Urine NEGATIVE (NEG/TRACE); Specific Gravity Urine 1.025 (1.005-1.025); Urobilinogen Urine 0.2 EU/dL (0.2-1.0)
[2023-03-25 20:11] LABS: Urine Microscopic Indicated YES
[2023-03-25 20:13] LABS: Bacteria Urine LARGE #/HPF (NONE SEEN); Mucus Urine SMALL (NONE SEEN); RBC Urine 0-2 #/HPF (0-2)
[2023-03-25 20:14] LABS: Cast Seen? NONE SEEN #/LPF (NONE SEEN); Crystals Seen? None Seen #/HPF (None Seen); Squamous Epithelial Cell Urine FEW #/LPF (NONE/RARE); Urine Culture Indicated YES
[2023-03-25 20:30] LABS: Troponin I High Sensitivity 90.5 pg/mL (4.0-51.3)
[2023-03-25] MEDS: MORPHINE SULFATE 4 MG/ML VIAL IV (20:57)
--- NOTE | 2023-03-25 21:26 | CT_ITS ---
[address] [address] Patient Name: CONSTANTINO CARDOSO MRN: [id number] date: 1970 Sex: F Assigned Patient Location: ER Current Patient Location: ER Accession/Order Number: [id number] Exam Date: 03/25/2023 21:50 Report Date: 03/25/2023 23:07 At the request of: BALTAZAR GEORGES Procedure: CT abdomen pelvis wo con EXAM: CT abdomen pelvis wo con HISTORY: abd pain COMPARISON: Abdomen series 03/25/2023. CT abdomen/pelvis 11/01/2022 TECHNIQUE: Axial CT imaging was performed through the abdomen and pelvis without intravenous contrast. Multiplanar reformats were performed. Dose reduction techniques were achieved by using automated exposure control and/or adjustment of mA and/or kV according to patient size and/or use of iterative reconstruction technique. FINDINGS: Lung bases: Lung bases are clear. No pleural effusion. GI upper: Small hiatal hernia. Previous fundoplication. Liver: Normal size and contour. Gallbladder: Previous cholecystectomy. Biliary system: No intra or extrahepatic biliary ductal dilatation. Pancreas: Unremarkable. Spleen: Normal size. Adrenal glands: Normal adrenal glands. Kidneys/ureters: Normal contours. No hydronephrosis or visible mass. No nephrolithiasis. Both ureters are normal in caliber and course to the bladder. Vessels: No aneurysm. Retroperitoneum: No lymphadenopathy. Small bowel: No wall thickening or dilatation. Colon: No wall thickening or dilatation. Appendix: The appendix is short, otherwise demonstrated to be of normal caliber. Peritoneal cavity: No free fluid or pneumoperitoneum. Lower : Prior hysterectomy. Bones: No acute bony abnormality. Soft tissues: No acute finding. Additional findings: None. CT/CT abdomen pelvis wo con IMPRESSION: 1. Previous cholecystectomy. 2. Previous hysterectomy. 3. No acute intra-abdominal or pelvic process is otherwise identified. Electronically authenticated by: Perry DELGADO Date: 03/25/2023 23:07
[2023-03-25] MEDS: LEVOFLOXACIN IN DEXTROSE 5 % 500 MG/100 ML PIGGYBACK 100 MG IV (21:50)
[2023-03-25 22:40] LABS: Troponin I High Sensitivity 83.5 pg/mL (4.0-51.3)
[2023-03-26] VITALS: BP 142/79
--- NOTE | 2023-03-26 00:13 | PC.NURSE ---
patient states abdominal pain is bearable but has increased to 02/12. physician notified.
[2023-03-26] MEDS: ASPIRIN 325 MG TABLET PO (00:26)
[2023-03-26 00:31] VITALS: BP 150/82
--- NOTE | 2023-03-26 00:33 | ECG_ITS ---
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
--- NOTE | 2023-03-26 00:54 | PC.NURSE ---
patient compliants of epigastric pain. ekg obtained and given to physician. patient given 325mg Tylenol
--- NOTE | 2023-03-29 13:08 | PC.NURSE ---
03/29/23 [id number] [place] c[place] [facility] [place] spoke with coordinator of 3 [place] at [facility] [place] given fax number faxed according to number given. Maria C Salcedo RN
== END 2023-03-26 02:10 | disposition short-term general hospital (02) ==
PROVIDERS: Emergency Medicine; Personal Emergency Response Attendant; Emergency Provider Emergency Medicine; PCP Nurse Practitioner Family
DX: N39.0 Urinary tract infection, site not specified (principal); R10.13 Epigastric pain; R77.8 Other specified abnormalities of plasma proteins; Z79.899 Other long term (current) drug therapy; Z90.49 Acquired absence of other specified parts of digestive tract; Z87.891 Personal history of nicotine dependence
CPT/HCPCS: 36415; 74022; 74176; 80053; 81003; 81015; 83605; 83690; 84484; 85025; 85610; 85730; 87086; 87150; 87186; 93005; 96374; 96375; 96376; 99285

== ENCOUNTER 2023-05-15 22:38 | Emergency (ER) | payer BC, SELFPAY ==
[2023-05-15 22:47] VITALS: BP 130/94; PULSE 91; RESP 18; O2SAT 99; BMI 31.0
--- NOTE | 2023-05-15 23:11 | ECG_ITS ---
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
--- NOTE | 2023-05-15 23:13 | ED.ABDPAIN1 ---
HPI - Abdominal Pain General Chief Complaint: Abdominal Pain Stated Complaint: Adbominal Pain Time Seen by Provider: 05/15/23 22:54 Source: patient Mode of arrival: walk-in History of Present Illness HPI narrative: 52-year-old female presents for abdominal pain. This is ongoing issue for her and she's had this for months. In late March she had to have esophageal dilatation. He had previous hiatal hernia surgery and she was told by a surgeon in [place] that she needs more surgery. The pain increased over the past day. She has had no fever. No vomiting but she's been nauseous. No injury chest pain or shortness of breath. Related Data Home Medications Medication Instructions Recorded Confirmed bisacodyl 5 mg tablet,delayed 5 mg PO DAILY 02/26/23 02/26/23 release (Gentle Laxative (bisacodyl)) omeprazole 40 mg capsule,delayed 40 mg PO DAILY 02/26/23 02/26/23 release ondansetron 4 mg disintegrating 4 mg translingual Q4H PRN nausea 02/26/23 02/26/23 tablet and vomiting promethazine 25 mg tablet 25 mg PO Q12H PRN nausea and 02/26/23 02/26/23 vomiting rimegepant 75 mg disintegrating 75 mg PO DAILY PRN migraine 02/26/23 05/15/23 tablet (Nurtec ODT) headache sucralfate 1 gram tablet 1 g PO Q6H 02/26/23 02/26/23 Allergies Allergy/AdvReac Type Severity Reaction Status Date / Time cyclobenzaprine Allergy Severe Anaphylaxis Verified 02/26/23 00:20 [From Flexeril] Penicillins Allergy Intermediate Hives Verified 02/26/23 00:20 Review of Systems ROS Narrative A ten point review of systems is negative except as noted above. PFSH PFSH Social History Smoking status: Former smoker Exam Narrative Exam Narrative: Nurses note and vital signs reviewed and patient is not hypoxic. General: The patient appears well and in no apparent distress. Patient is resting comfortably on cart. Skin: Warm, dry, no pallor noted. There is no rash noted. Head: Normocephalic, atraumatic Eye: Normal conjunctiva, no drainage Ears, Nose, Mouth, and Throat: oral mucosa is moist. Nares patent. Cardiovascular: Regular Rate and Rhythm Respiratory: Patient is in no distress, no accessory muscle use, lungs are clear to auscultation, no wheezing, rales or rhonchi Back: non-tender GI: Normal bowel sounds, mild tenderness to palpation in the upper abdomen, no masses appreciated. No rebound, guarding, or rigidity noted. Musculoskeletal: The patient has no evidence of calf tenderness, no pitting edema, symmetrical pulses noted bilaterally Neurological: A&O, normal speech Psychiatric: Cooperative Constitutional Vital Signs, click to edit/add: Last Vital Signs Pulse 80 05/16/23 00:31 Resp 22 05/16/23 00:31 BP 142/88 H 05/16/23 00:31 Pulse Ox 95 05/16/23 00:31 O2 Del Method Room Air 05/15/23 22:47 Course Vital Signs Vital signs: Vital Signs Pulse Rate 91 H 05/15/23 22:47 Respiratory Rate 18 05/15/23 22:47 Blood Pressure 130/94 H 05/15/23 22:47 Pulse Oximetry 99 05/15/23 22:47 Oxygen Delivery Method Room Air 05/15/23 22:47 Pulse Rate 80 05/16/23 00:31 Respiratory Rate 22 05/16/23 00:31 Blood Pressure 142/88 H 05/16/23 00:31 Pulse Oximetry 95 05/16/23 00:31 Oxygen Delivery Method Room Air 05/15/23 22:47 MDM - Abdominal Pain MDM Narrative Medical decision making narrative: the patient's laboratory analysis is negative. The patient has chronic abdominal pain and is going to call her doctor in the morning for follow-up. No acute findings are found tonight. She seems to be feeling improved with the medications given here. Treatment diagnosis and follow-up were discussed with the patient. Differential Diagnosis Differential diagnosis: Likely abdominal pain, constipation, diverticulitis, gastroenteritis, pancreatitis and small bowel obstruction Lab Data Attestation: I reviewed the patient's lab results. Labs: Lab Results 05/15/23 05/15/23 Range/Units 00:42 22:55 WBC 8.9 (4.0-11.0) 10^3/uL RBC 4.42 (4.20-5.40) 10^6/uL Hgb 12.9 (12.0-16.0) g/dL Hct 39.5 (36.0-48.0) % MCV 89.4 (81.0-99.0) fL MCH 29.2 (26.7-34.0) pg MCHC 32.7 (29.9-35.2) g/dL RDW 13.4 (11.0-15.0) % Plt Count 348 (150-450) 10^3/uL MPV 9.3 L (9.5-13.5) fL Neut % (Auto) 53.6 (43.0-75.0) % Lymph % (Auto) 32.7 (20.5-60.0) % [place] % (Auto) 8.5 (1.7-12.0) % Eos % (Auto) 4.4 (0.9-7.0) % Baso % (Auto) 0.6 (0.2-2.0) % Neut # (Auto) 4.8 (1.4-6.5) 10^3/uL Lymph # (Auto) 2.9 (1.2-3.8) 10^3/uL [place] # (Auto) 0.8 (0.3-0.8) 10^3/uL Eos # (Auto) 0.4 (0.0-0.7) 10^3/uL Baso # (Auto) 0.1 (0.0-0.1) 10^3/uL Abs Immat Gran (auto) 0.02 (0.00-0.03) 10^3/uL Imm/Tot Granulo (auto) 0.2 (0.0-0.5) % Sodium 143 (136-145) mmol/L Potassium 3.2 L (3.5-5.1) mmol/L Chloride 106 (98-107) mmol/L Carbon Dioxide 28.2 (21.0-32.0) mmol/L Anion Gap 12.0 BUN 24.0 H (7.0-18.0) mg/dL Creatinine 0.79 (0.55-1.02) mg/dL Est GFR ( Amer) >60 (>=60) Est GFR (Non-Af Amer) >60 (>=60) BUN/Creatinine Ratio 30.4 Glucose 81 (74-106) mg/dL Calcium 8.6 (8.5-10.1) mg/dL Total Bilirubin 0.3 (0.2-1.0) mg/dL Direct Bilirubin <0.1 (0.0-0.2) mg/dL AST 13 L (15-37) U/L ALT 13 L (14-59) U/L Alkaline Phosphatase 126 H (46-116) U/L Troponin I High Sens 68.9 H* 68.6 H* (4.0-51.3) pg/mL Total Protein 7.4 (6.4-8.2) g/dL Albumin 3.6 (3.4-5.0) g/dL Globulin 3.8 g/dL Albumin/Globulin Ratio 0.9 Amylase 86 (25-115) U/L Lipase 152.0 (73.0-393.0) U/L Discharge Plan Discharge Chief Complaint: Abdominal Pain Clinical Impression: Abdominal pain, chronic, generalized Patient Disposition: Home, Self-Care Time of Disposition Decision: 01:56 Condition: Good Mode of Transportation: Private Vehicle Prescriptions / Home Meds: No Action bisacodyl [Gentle Laxative (bisacodyl)] 5 mg tablet,delayed release (DR/EC) 5 mg PO DAILY omeprazole 40 mg capsule,delayed release(DR/EC) 40 mg PO DAILY ondansetron 4 mg tablet,disintegrating 4 mg translingual Q4H PRN (Reason: nausea and vomiting) promethazine 25 mg tablet 25 mg PO Q12H PRN (Reason: nausea and vomiting) Nurtec ODT 75 mg tablet,disintegrating 75 mg PO DAILY PRN (Reason: migraine headache) sucralfate 1 gram tablet 1 g PO Q6H Instructions: Abdominal Pain (ED), Chronic Abdominal Pain (DC) Stand Alone Forms: Portal Instructions Referrals: STEPHANIE YOUSSEF [Primary Care Provider] - 1 week
[2023-05-15 23:27] VITALS: PULSE 85
[2023-05-15 23:27] LABS: Alanine Aminotransferase 13 U/L (14-59); Albumin Globulin Ratio 0.9; Albumin Level 3.6 g/dL (3.4-5.0); Alkaline Phosphatase 126 U/L (46-116); Aspartate Amino Transferase 13 U/L (15-37); BUN Creatinine Ratio 30.4; Bilirubin Total 0.3 mg/dL (0.2-1.0); Calcium 8.6 mg/dL (8.5-10.1); Carbon Dioxide 28.2 mmol/L (21.0-32.0); Chloride 106 mmol/L (98-107); Estimated GFR (African America >60 (>=60); Estimated GFR (Non-African Ame >60 (>=60); Globulin 3.8 g/dL; Glucose 81 mg/dL (74-106); Potassium 3.2 mmol/L (3.5-5.1); Sodium 143 mmol/L (136-145); Total Protein 7.4 g/dL (6.4-8.2)
[2023-05-15 23:30] VITALS: BP 152/100; PULSE 88; O2SAT 96
[2023-05-15 23:30] LABS: Amylase 86 U/L (25-115); Bilirubin Direct <0.1 mg/dL (0.0-0.2)
[2023-05-15] MEDS: 0.9 % SODIUM CHLORIDE 1,000 ML 1000 ML IV (23:30)
[2023-05-15] MEDS: ONDANSETRON PF 4 MG/2 ML VIAL IV (23:31)
[2023-05-15] MEDS: METOCLOPRAMIDE HCL 10 MG/2 ML VIAL IVP (23:31)
[2023-05-15 23:34] LABS: Troponin I High Sensitivity 68.6 pg/mL (4.0-51.3)
[2023-05-15 23:38] LABS: Basophils Absolute Auto 0.1 10^3/uL (0.0-0.1); Basophils Percent Auto 0.6 % (0.2-2.0); Eosinophils Absolute Auto 0.4 10^3/uL (0.0-0.7); Eosinophils Percent Auto 4.4 % (0.9-7.0); Hematocrit 39.5 % (36.0-48.0); Hemoglobin 12.9 g/dL (12.0-16.0); Immature Granulocytes Abs Auto 0.02 10^3/uL (0.00-0.03); Immature Granulocytes Pct Auto 0.2 % (0.0-0.5); Lymphocytes Absolute Auto 2.9 10^3/uL (1.2-3.8); Lymphocytes Percent Auto 32.7 % (20.5-60.0); Mean Corpuscular HGB Conc 32.7 g/dL (29.9-35.2); Mean Corpuscular Hemoglobin 29.2 pg (26.7-34.0); Mean Corpuscular Volume 89.4 fL (81.0-99.0); Mean Platelet Volume 9.3 fL (9.5-13.5); Monocytes Absolute Auto 0.8 10^3/uL (0.3-0.8); Monocytes Percent Auto 8.5 % (1.7-12.0); Neutrophils Absolute Auto 4.8 10^3/uL (1.4-6.5); Neutrophils Percent Auto 53.6 % (43.0-75.0); Platelet Count 348 10^3/uL (150-450); Red Blood Count 4.42 10^6/uL (4.20-5.40); Red Cell Distribution Width 13.4 % (11.0-15.0); White Blood Count 8.9 10^3/uL (4.0-11.0)
[2023-05-15 23:40] VITALS: PULSE 90; RESP 24; O2SAT 95
[2023-05-15 23:50] VITALS: PULSE 88; RESP 17; O2SAT 97
[2023-05-16] VITALS: BP 156/81; PULSE 90; RESP 19; O2SAT 96
[2023-05-16 00:10] VITALS: PULSE 89; RESP 22; O2SAT 96
[2023-05-16 00:20] VITALS: PULSE 87; RESP 19; O2SAT 98
[2023-05-16 00:30] VITALS: PULSE 81; RESP 22; O2SAT 94
[2023-05-16 00:31] VITALS: BP 142/88; PULSE 80; RESP 22; O2SAT 95
[2023-05-16 01:15] LABS: Troponin I High Sensitivity 68.9 pg/mL (4.0-51.3)
[2023-05-16] MEDS: MORPHINE SULFATE 4 MG/ML VIAL IV (01:43)
== END 2023-05-16 02:09 | disposition home or self-care (01) ==
PROVIDERS: Emergency Provider Emergency Medicine; PCP Nurse Practitioner Family
DX: R10.84 Generalized abdominal pain (principal); G89.29 Other chronic pain; Z79.899 Other long term (current) drug therapy; Z87.891 Personal history of nicotine dependence
CPT/HCPCS: 36415; 80048; 80076; 82150; 83690; 84484; 85025; 93005; 96374; 96375; 99284

== ENCOUNTER 2023-06-03 03:37 | Emergency (ER) | payer BC, SELFPAY ==
[2023-06-03] VITALS (11 sets, daily range): BP systolic 129–138; BP diastolic 89–97; PULSE 59–75; RESP 15–22; TEMP 36.4; O2SAT 95–97; BMI 29.0
--- NOTE | 2023-06-03 04:08 | ECG_ITS ---
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
--- NOTE | 2023-06-03 04:10 | PC.NURSE ---
Pt presents to ER for abdominal pain and burning in the epigastric region Pt states she sees a GI doctor through the [facility] and was recently diagnosed with gastroparesis Pt states the doctor told her she would have the type of pain which she is experiencing pt states before coming in she took an old pain pill and a zofran pt does not know what this medication was
--- NOTE | 2023-06-03 04:11 | ED.ABDPAIN1 ---
HPI - Abdominal Pain General Chief Complaint: Abdominal Pain Stated Complaint: ABD PAIN Time Seen by Provider: 06/03/23 03:42 History of Present Illness HPI narrative: This 53-year-old female with a history of chronic abdominal pain who recently underwent testing at [facility] and was told that she has gastroparesis and needs an EGD and possibly another surgery to fix her hiatal hernia presents for evaluation of epigastric abdominal pain that radiates into her chest and back. She states the symptoms started earlier today and were associated with nausea and dry heaves. She has not had a fever. She has a history of a mitral valve prolapse but otherwise no cardiac disease. She is not a smoker. She denies any shortness of breath. She states that earlier tonight she took a Zofran in the left over pain pill. She states that after taking the pain pill her nausea became worse, she became pale and sweaty and had to leave work. She does not know the name of the pain pill but it was left over from some period of time ago. She has also had diarrhea intermittently which is not unusual for her. She states that she was told that her stomach is in the wrong place after her hiatal hernia surgery. She is supposed to have an EGD but does not have a date for it yet. Related Data Home Medications Medication Instructions Recorded Confirmed bisacodyl 5 mg tablet,delayed 5 mg PO DAILY 02/26/23 06/06/23 release (Gentle Laxative (bisacodyl)) omeprazole 40 mg capsule,delayed 40 mg PO DAILY 02/26/23 06/06/23 release ondansetron 4 mg disintegrating 4 mg translingual Q4H PRN nausea 02/26/23 06/06/23 tablet and vomiting promethazine 25 mg tablet 25 mg PO Q12H PRN nausea and 02/26/23 06/06/23 vomiting rimegepant 75 mg disintegrating 75 mg PO DAILY PRN migraine 02/26/23 06/06/23 tablet (Nurtec ODT) headache sucralfate 1 gram tablet 1 g PO Q6H 02/26/23 06/06/23 dicyclomine 10 mg capsule 20 mg PO .4 times per day 06/06/23 06/06/23 Previous Rx's Medication Instructions Recorded ciprofloxacin HCl 500 mg tablet 500 mg PO Q12H 5 days #10 tabs 06/06/23 dicyclomine 20 mg tablet 20 mg PO TID PRN abdominal pain #7 06/06/23 tabs ondansetron 4 mg disintegrating 4 mg PO Q4H PRN nausea and 06/06/23 tablet vomiting 3 days #6 tabs promethazine 25 mg rectal 25 mg [place] Q6H PRN nausea and 06/06/23 suppository vomiting #6 ea Allergies Allergy/AdvReac Type Severity Reaction Status Date / Time cyclobenzaprine Allergy Severe Anaphylaxis Verified 06/03/23 03:49 [From Flexeril] Penicillins Allergy Intermediate Hives Verified 06/03/23 03:49 Review of Systems ROS Status of ROS 10 or more systems reviewed and unremarkable except as noted in history and below [facility] Social History Smoking status: Current every day smoker Exam Narrative Exam Narrative: Nurses note and vital signs reviewed and patient is not hypoxic. General: Nontoxic, moderately overweight female resting comfortably on the stretcher, no respiratory distress, no active vomiting Skin: Warm, dry, no pallor noted. There is no rash noted. Head: Normocephalic, atraumatic Eye: Normal conjunctiva, no drainage, EOMI. PERRL, no scleral icterus Ears, Nose, Mouth, and Throat: oral mucosa is moist. Nares patent. Cardiovascular: Regular Rate and Rhythm S1 and S2, no murmurs rubs or gallops appreciated Respiratory: Patient is in no distress, no accessory muscle use, lungs are clear to auscultation, no wheezing, rales or rhonchi Back: non-tender, no CVA tenderness bilaterally to percussion. GI: Obese, soft, epigastric abdominal tenderness, hyperactive bowel sounds are appreciated, abdomen is generally tender, patient localizes to the epigastrium and left upper quadrant, no pulsatile masses are appreciated Musculoskeletal: The patient has no evidence of calf tenderness, no pitting edema, symmetrical pulses noted bilaterally Neurological: A&O x4, normal speech Psychiatric: Cooperative Constitutional Vital Signs, click to edit/add: Last Vital Signs Temp 97.6 F 06/03/23 03:43 Pulse 74 06/03/23 06:54 Resp 16 06/03/23 06:54 BP 129/89 06/03/23 06:54 Pulse Ox 95 06/03/23 06:54 O2 Del Method Room Air 06/03/23 03:43 Course Vital Signs Vital signs: Vital Signs Temperature 97.6 F 06/03/23 03:43 Pulse Rate 75 06/03/23 03:43 Respiratory Rate 16 06/03/23 03:43 Blood Pressure 138/97 H 06/03/23 03:43 Pulse Oximetry 97 06/03/23 03:43 Oxygen Delivery Method Room Air 06/03/23 03:43 Temperature 97.6 F 06/03/23 03:43 Pulse Rate 74 06/03/23 06:54 Respiratory Rate 16 06/03/23 06:54 Blood Pressure 129/89 06/03/23 06:54 Pulse Oximetry 95 06/03/23 06:54 Oxygen Delivery Method Room Air 06/03/23 03:43 MDM - Abdominal Pain MDM Narrative Medical decision making narrative: This 53-year-old female with a history of chronic abdominal pain who is status post hiatal hernia repair and cholecystectomy presents for evaluation of epigastric abdominal pain that radiates into her chest. This is her typical presentation for abdominal pain. She was recently seen and evaluated at [facility] and told she has gastroparesis. She states that she was not started on any new medications after this diagnosis but is supposed to have an EGD in the future. This proceduure is not yet scheduled. She stated to me that she was told she is going to have this pain ongoing and she will probably have to come to the emergency department frequently for treatment of the pain. I reviewed her charts and labs from previous visits. She has a chronically elevated troponin. The last time she was here was 68 twice. Due to her complaint of chest pain associated with her abdominal pain an EKG was done upon arrival that was a sinus rhythm with a prolonged QT interval but otherwise normal. An IV was placed and she is medicated with IV fluids, Zofran, Pepcid and 4 mg of morphine as well as gastrointestinal cocktail. Routine labs were ordered and are reviewed. She has a normal white count and hemoglobin. Her electrolytes are normal. Her lipase is normal. Her troponin is elevated at 69.2. On Re-evaluation she is feeling somewhat better and is drinking water and eating saltine crackers. I signed her that we will repeat her troponin. She is agreeable to this. Repeat troponin is lower at 66.6. She is feeling better and stable for discharge. I will prescribe her reglan as this may help with the nausea and gastroparesis. Lab Data Labs: Lab Results 06/03/23 06/03/23 Range/Units 03:55 05:49 WBC 7.5 (4.0-11.0) 10^3/uL RBC 4.08 L (4.20-5.40) 10^6/uL Hgb 12.0 (12.0-16.0) g/dL Hct 37.1 (36.0-48.0) % MCV 90.9 (81.0-99.0) fL MCH 29.4 (26.7-34.0) pg MCHC 32.3 (29.9-35.2) g/dL RDW 13.5 (11.0-15.0) % Plt Count 360 (150-450) 10^3/uL MPV 9.2 L (9.5-13.5) fL Neut % (Auto) 65.0 (43.0-75.0) % Lymph % (Auto) 27.3 (20.5-60.0) % [place] % (Auto) 5.0 (1.7-12.0) % Eos % (Auto) 2.0 (0.9-7.0) % Baso % (Auto) 0.4 (0.2-2.0) % Neut # (Auto) 4.9 (1.4-6.5) 10^3/uL Lymph # (Auto) 2.0 (1.2-3.8) 10^3/uL [place] # (Auto) 0.4 (0.3-0.8) 10^3/uL Eos # (Auto) 0.2 (0.0-0.7) 10^3/uL Baso # (Auto) 0.0 (0.0-0.1) 10^3/uL Abs Immat Gran (auto) 0.02 (0.00-0.03) 10^3/uL Imm/Tot Granulo (auto) 0.3 (0.0-0.5) % Sodium 143 (136-145) mmol/L Potassium 3.8 (3.5-5.1) mmol/L Chloride 107 (98-107) mmol/L Carbon Dioxide 26.4 (21.0-32.0) mmol/L Anion Gap 13.4 BUN 27.0 H (7.0-18.0) mg/dL Creatinine 0.90 (0.55-1.02) mg/dL Est GFR ( Amer) >60 (>=60) Est GFR (Non-Af Amer) >60 (>=60) BUN/Creatinine Ratio 30.0 Glucose 98 (74-106) mg/dL Calcium 8.7 (8.5-10.1) mg/dL Total Bilirubin 0.2 (0.2-1.0) mg/dL AST 13 L (15-37) U/L ALT 20 (14-59) U/L Alkaline Phosphatase 118 H (46-116) U/L Troponin I High Sens 69.2 H* 66.6 H* (4.0-51.3) pg/mL Total Protein 7.4 (6.4-8.2) g/dL Albumin 3.7 (3.4-5.0) g/dL Globulin 3.7 g/dL Albumin/Globulin Ratio 1.0 Lipase 83.0 (73.0-393.0) U/L ECG Data Attestation: I personally reviewed and interpreted this ECG as follows: (Sinus rhythm at 55 beats for minute, long QT interval at 402 ms, QTC 452 ms, normal axis, no acute ST segment elevation or T-wave inversion) Discharge Plan Discharge Chief Complaint: Abdominal Pain Clinical Impression: Chronic upper abdominal pain, Elevated troponin Patient Disposition: Home, Self-Care Time of Disposition Decision: 06:46 Prescriptions / Home Meds: No Action bisacodyl [Gentle Laxative (bisacodyl)] 5 mg tablet,delayed release (DR/EC) 5 mg PO DAILY omeprazole 40 mg capsule,delayed release(DR/EC) 40 mg PO DAILY ondansetron 4 mg tablet,disintegrating 4 mg translingual Q4H PRN (Reason: nausea and vomiting) promethazine 25 mg tablet 25 mg PO Q12H PRN (Reason: nausea and vomiting) Nurtec ODT 75 mg tablet,disintegrating 75 mg PO DAILY PRN (Reason: migraine headache) sucralfate 1 gram tablet 1 g PO Q6H dicyclomine 10 mg capsule 20 mg PO .4 times per day promethazine 25 mg suppository 25 mg [place] Q6H PRN (Reason: nausea and vomiting) Qty: 6 0RF dicyclomine 20 mg tablet 20 mg PO TID PRN (Reason: abdominal pain) Qty: 7 0RF ondansetron 4 mg tablet,disintegrating 4 mg PO Q4H PRN (Reason: nausea and vomiting) 3 Days Qty: 6 0RF ciprofloxacin HCl 500 mg tablet 500 mg PO Q12H 5 Days Qty: 10 0RF Instructions: Abdominal Pain (ED), Chronic Abdominal Pain (DC), High Troponin Levels (ED) Stand Alone Forms: Portal Instructions Referrals: STEPHANIE YOUSSEF [Primary Care Provider] - 1 week Discharge Date/Time: 06/03/23 06:56
[2023-06-03 04:18] LABS: Basophils Percent Auto 0.4 % (0.2-2.0); Eosinophils Absolute Auto 0.2 10^3/uL (0.0-0.7); Hematocrit 37.1 % (36.0-48.0); Immature Granulocytes Abs Auto 0.02 10^3/uL (0.00-0.03); Immature Granulocytes Pct Auto 0.3 % (0.0-0.5); Lymphocytes Percent Auto 27.3 % (20.5-60.0); Mean Corpuscular HGB Conc 32.3 g/dL (29.9-35.2); Mean Corpuscular Hemoglobin 29.4 pg (26.7-34.0); Mean Corpuscular Volume 90.9 fL (81.0-99.0); Mean Platelet Volume 9.2 fL (9.5-13.5); Monocytes Absolute Auto 0.4 10^3/uL (0.3-0.8); Neutrophils Absolute Auto 4.9 10^3/uL (1.4-6.5); Platelet Count 360 10^3/uL (150-450); Red Blood Count 4.08 10^6/uL (4.20-5.40); Red Cell Distribution Width 13.5 % (11.0-15.0); White Blood Count 7.5 10^3/uL (4.0-11.0)
[2023-06-03 04:34] LABS: Alanine Aminotransferase 20 U/L (14-59); Albumin Level 3.7 g/dL (3.4-5.0); Alkaline Phosphatase 118 U/L (46-116); Anion Gap 13.4; Aspartate Amino Transferase 13 U/L (15-37); Bilirubin Total 0.2 mg/dL (0.2-1.0); Calcium 8.7 mg/dL (8.5-10.1); Carbon Dioxide 26.4 mmol/L (21.0-32.0); Chloride 107 mmol/L (98-107); Estimated GFR (African America >60 (>=60); Estimated GFR (Non-African Ame >60 (>=60); Globulin 3.7 g/dL; Glucose 98 mg/dL (74-106); Potassium 3.8 mmol/L (3.5-5.1); Sodium 143 mmol/L (136-145); Total Protein 7.4 g/dL (6.4-8.2)
[2023-06-03 04:37] LABS: Troponin I High Sensitivity 69.2 pg/mL (4.0-51.3)
[2023-06-03] MEDS: ONDANSETRON PF 4 MG/2 ML VIAL IV (04:39)
[2023-06-03] MEDS: 0.9 % SODIUM CHLORIDE 1,000 ML 1000 ML IV (04:39)
[2023-06-03] MEDS: FAMOTIDINE/PF 20 MG/2 ML VIAL IV (04:39)
[2023-06-03] MEDS: MORPHINE SULFATE 4 MG/ML VIAL IV (04:39)
[2023-06-03] MEDS: lidocaine HCL 15 ML, MAG HYDROX/ALUMINUM HYD/SIMETH 30 ML, HYOSCYAMINE SULFATE 0.25 MG PO (04:40)
[2023-06-03 06:41] LABS: Troponin I High Sensitivity 66.6 pg/mL (4.0-51.3)
== END 2023-06-03 06:56 | disposition home or self-care (01) ==
PROVIDERS: Emergency Provider Emergency Medicine; PCP Nurse Practitioner Family
DX: R10.9 Unspecified abdominal pain (principal); G89.29 Other chronic pain; R77.8 Other specified abnormalities of plasma proteins; I34.1 Nonrheumatic mitral (valve) prolapse; Z79.899 Other long term (current) drug therapy; Z90.49 Acquired absence of other specified parts of digestive tract
CPT/HCPCS: 36415; 80053; 81001; 83690; 84484; 85025; 93005; 96374; 96375; 99285

== ENCOUNTER 2023-06-06 08:30 | Emergency (ER) | payer BC, SELFPAY ==
[2023-06-06 08:35] VITALS: BP 150/108; PULSE 81; RESP 18; TEMP 36.6; O2SAT 99; BMI 28.2
--- NOTE | 2023-06-06 08:57 | XR_ITS ---
The [address] [address] Patient Name: CONSTANTINO CARDOSO MRN: [id number] date: 1970 Sex: F Assigned Patient Location: ER Current Patient Location: ER Accession/Order Number: [id number] Exam Date: 06/06/2023 09:38 Report Date: 06/06/2023 10:17 At the request of: DIPAK SPENCER Procedure: XR acute abdomen series EXAMINATION: XR acute abdomen series HISTORY: pain COMPARISON: No relevant comparison available. FINDINGS: LUNGS: No infiltrate, pneumothorax, or pleural effusion. MEDIASTINUM: No abnormal widening. BOWEL GAS PATTERN: Non-obstructed.r mildly dilated small bowel loop in the left mid abdomen measuring 4.2 cm, nonspecific FREE AIR: None. CALCIFICATIONS: None significant. BONES: S-shaped curvature of the spine OTHER: Negative. XR/XR acute abdomen series IMPRESSION: Clear lungs Nonobstructive bowel gas pattern Electronically authenticated by: CASSANDRA PUENTE Date: 06/06/2023 10:17
--- NOTE | 2023-06-06 08:59 | ECG_ITS ---
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
--- NOTE | 2023-06-06 08:59 | ED_ITS ---
HPI - General Adult General Chief complaint: Abdominal Pain Stated complaint: ABDOMINAL PAIN Time Seen by Provider: 06/06/23 08:51 Source: patient Mode of arrival: walk-in Limitations: no limitations History of Present Illness HPI narrative: Patient is a 53-year-old female who is presenting to the Emergency Room with chief complaint of midepigastric pain, intractable nausea, vomiting, pain, diarrhea the started at 5 AM this morning. Patient was also here this past with similar complaints. Patient also has a history of mitral valve prolapse, she has no heart history, no cardiac stents. Patient does have a history of elevated headache enzymes. Patient has been sent to [facility] previously for elevated cardiac enzymes and she ended up having a esophageal collapse where she had a get her esophagus opened up. Patient has a history of acid reflux, she does not have her gallbladder. Patient does have her appendix. Patient was in the Emergency Room on , patient had similar symptoms. Patient says she felt somewhat better when she went home , but still having mid abdominal and midepigastric discomfort throughout the weekend, but since 5 AM the intractable nausea, vomiting, diarrhea, pain has intensified. 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 Patient does have a gastrointestinal specialist the [facility], Dr. Cox. Patient is from [place]. Patient has l [facility] PCP. Patient was brought to the Emergency Room by her . Patient is passing gas, she is having diarrhea. Patient is having midepigastric pain that radiates to her back. No aortic history. . All systems are negative except as noted/marked. All systems reviewed and otherwise negative. . Nurses note and vital signs reviewed and patient is not hypoxic. General: The patient appears well and in Mild distress secondary to pain. Patient is resting uncomfortably on cart. Patient is not toxic, lethargic, or listless Skin: Warm, dry, no pallor noted. There is no rash noted. No petechiae, purpura. Head: Normocephalic, atraumatic Eye: Normal conjunctiva, no drainage, EOMI. PERRL Ears, Nose, Mouth, and Throat: oral mucosa is moist. Nares patent. Mouth without vesicles. Cardiovascular: Regular Rate and Rhythm, no murmur, gallop, rub Respiratory: Patient is in no distress, no accessory muscle use, lungs are clear to auscultation, no wheezing, rales or rhonchi Back: non-tender, no CVA tenderness bilaterally to percussion. No CT LS midline pain GI: soft, Moderate to severe reproducible tenderness to palpation to the midepigastric area, mild to moderate right upper quadrant, mild left upper quadrant tenderness to palpation; otherwise no tenderness to palpation, no masses appreciated. No peritoneal signs. No flank pain bilateral. No rebound, mild guarding, or NO rigidity noted. No flank pain bilateral, No distention. Musculoskeletal: Patient has full range of motion of all of the extremities, no motor, sensory, or focal neurological deficits Neurological: A&O x3, normal speech Psychiatric: Cooperative Related Data Home Medications Medication Instructions Recorded Confirmed bisacodyl 5 mg tablet,delayed 5 mg PO DAILY 02/26/23 06/06/23 release (Gentle Laxative (bisacodyl)) omeprazole 40 mg capsule,delayed 40 mg PO DAILY 02/26/23 06/06/23 release ondansetron 4 mg disintegrating 4 mg translingual Q4H PRN nausea 02/26/23 06/06/23 tablet and vomiting promethazine 25 mg tablet 25 mg PO Q12H PRN nausea and 02/26/23 06/06/23 vomiting rimegepant 75 mg disintegrating 75 mg PO DAILY PRN migraine 02/26/23 06/06/23 tablet (Nurtec ODT) headache sucralfate 1 gram tablet 1 g PO Q6H 02/26/23 06/06/23 dicyclomine 10 mg capsule 20 mg PO .4 times per day 06/06/23 06/06/23 Previous Rx's Medication Instructions Recorded ciprofloxacin HCl 500 mg tablet 500 mg PO Q12H 5 days #10 tabs 06/06/23 dicyclomine 20 mg tablet 20 mg PO TID PRN abdominal pain #7 06/06/23 tabs ondansetron 4 mg disintegrating 4 mg PO Q4H PRN nausea and 06/06/23 tablet vomiting 3 days #6 tabs promethazine 25 mg rectal 25 mg MT Q6H PRN nausea and 06/06/23 suppository vomiting #6 ea Allergies Allergy/AdvReac Type Severity Reaction Status Date / Time cyclobenzaprine Allergy Severe Anaphylaxis Verified 06/03/23 03:49 [From Flexeril] Penicillins Allergy Intermediate Hives Verified 06/03/23 03:49 PFSH PFSH Social History Smoking status: Current every day smoker Exam Constitutional Vital Signs, click to edit/add: Last Vital Signs Temp 97.8 F 06/06/23 08:35 Pulse 67 06/06/23 09:30 Resp 25 H 06/06/23 09:30 BP 141/95 H 06/06/23 09:09 Pulse Ox 99 06/06/23 08:35 O2 Del Method Room Air 06/06/23 08:35 Course Vital Signs Vital signs: Vital Signs Temperature 97.8 F 06/06/23 08:35 Pulse Rate 81 06/06/23 08:35 Respiratory Rate 18 06/06/23 08:35 Blood Pressure 150/108 H 06/06/23 08:35 Pulse Oximetry 99 06/06/23 08:35 Oxygen Delivery Method Room Air 06/06/23 08:35 Temperature 97.8 F 06/06/23 08:35 Pulse Rate 67 06/06/23 09:30 Respiratory Rate 25 H 06/06/23 09:30 Blood Pressure 141/95 H 06/06/23 09:09 Pulse Oximetry 99 06/06/23 08:35 Oxygen Delivery Method Room Air 06/06/23 08:35 Medical Decision Making MDM Narrative Medical decision making narrative: 1130 There has been significant delay in receiving the report of the lipase on this patient. This was a send out test secondary to lack of reagent to run the test in-house. Lab was drawn around 9:00 this morning, that was being sent to [facility], he still had no results on this lipase test. Patient's nausea has improved. Patient's pain was initially better, then it returned and she was given injection of Bentyl. Nausea and pain is given at this time. Blameless apologies were given to the patient, she received more IV fluids anus- lehman. She is aware that the 2 troponins are similar to her past troponins and have improved. Patient does feel good enough to go home, they're still waiting for the results the lipase before discharge. 1200 Patient's lipase was normal. Patient was feeling better, tolerated ice chips. Patient will be sent home with prescription for Zofran ODT and Phenergan suppositories. Patient will continue antacid medication. Patient will call Dr. Cox, her gastrointestinal specialist to follow-up. Patient received IV fluids. Patient will be treated with Cipro for 5 days for urinary tract infection, he has penicillin ALLERGY. Lab Data Lab results reviewed: Yes I reviewed the patient's lab results Labs: Lab Results 06/06/23 06/06/23 06/06/23 Range/Units 09:00 09:06 10:06 WBC 8.4 (4.0-11.0) 10^3/uL RBC 4.39 (4.20-5.40) 10^6/uL Hgb 12.9 (12.0-16.0) g/dL Hct 39.6 (36.0-48.0) % MCV 90.2 (81.0-99.0) fL MCH 29.4 (26.7-34.0) pg MCHC 32.6 (29.9-35.2) g/dL RDW 13.2 (11.0-15.0) % Plt Count 355 (150-450) 10^3/uL MPV 9.3 L (9.5-13.5) fL Neut % (Auto) 72.3 (43.0-75.0) % Lymph % (Auto) 17.7 L (20.5-60.0) % [place] % (Auto) 6.7 (1.7-12.0) % Eos % (Auto) 2.7 (0.9-7.0) % Baso % (Auto) 0.4 (0.2-2.0) % Neut # (Auto) 6.1 (1.4-6.5) 10^3/uL Lymph # (Auto) 1.5 (1.2-3.8) 10^3/uL [place] # (Auto) 0.6 (0.3-0.8) 10^3/uL Eos # (Auto) 0.2 (0.0-0.7) 10^3/uL Baso # (Auto) 0.0 (0.0-0.1) 10^3/uL Abs Immat Gran (auto) 0.02 (0.00-0.03) 10^3/uL Imm/Tot Granulo (auto) 0.2 (0.0-0.5) % Sodium 141 (136-145) mmol/L Potassium 3.8 (3.5-5.1) mmol/L Chloride 105 (98-107) mmol/L Carbon Dioxide 27.5 (21.0-32.0) mmol/L Anion Gap 12.3 BUN 21.0 H (7.0-18.0) mg/dL Creatinine 0.85 (0.55-1.02) mg/dL Est GFR ( Amer) >60 (>=60) Est GFR (Non-Af Amer) >60 (>=60) BUN/Creatinine Ratio 24.7 Glucose 109 H (74-106) mg/dL Lactate 1.2 (0.4-2.0) mmol/L Calcium 9.7 (8.5-10.1) mg/dL Total Bilirubin 0.3 (0.2-1.0) mg/dL AST 13 L (15-37) U/L ALT 19 (14-59) U/L Alkaline Phosphatase 125 H (46-116) U/L Troponin I High Sens 75.9 H* 69.3 H* (4.0-51.3) pg/mL Total Protein 7.4 (6.4-8.2) g/dL Albumin 3.6 (3.4-5.0) g/dL Globulin 3.8 g/dL Albumin/Globulin Ratio 0.9 Lipase (73.0-393.0) U/L Urine Color Lt. yellow (YELLOW) Urine Clarity Slightly cloudy A (CLEAR) Urine pH 6.0 (5.0-9.0) Ur Specific [place] 1.025 (1.005-1.025) Urine Protein Negative (NEG/TRACE) mg/dL Urine Glucose (UA) Negative (NEGATIVE) mg/dL Urine Ketones Negative (NEGATIVE) mg/dL Urine Occult Blood Small A (NEGATIVE) Urine Nitrite Positive A (NEGATIVE) Urine Bilirubin Negative (NEGATIVE) Urine Urobilinogen 0.2 (0.2-1.0) EU/dL Ur Leukocyte Esterase Negative (NEGATIVE) Urine RBC 0-2 (0-2) #/HPF Urine WBC 5-10 A (NONE SEEN) #/HPF Ur Squamous Epith Cells Few A (NONE/RARE) #/LPF Urine Crystals None seen (None Seen) #/HPF Urine Bacteria Large A (NONE SEEN) #/HPF Urine Casts None seen (NONE SEEN) #/LPF Urine Mucus None seen (NONE SEEN) Ur Culture Indicated? Yes ECG Data Attestation: I personally reviewed and interpreted this ECG as follows: (EKG interpretation. Normal sinus rhythm at 67 beats a minute. Normal axis deviation. No acute ST elevation, no acute ectopy. QTC of 438) Discharge Plan Discharge Chief Complaint: Abdominal Pain Clinical Impression: Epigastric abdominal pain, Urinary tract infection, Nausea and vomiting Patient Disposition: Home, Self-Care Time of Disposition Decision: 12:06 Condition: Good Prescriptions / Home Meds: New promethazine 25 mg suppository 25 mg MT Q6H PRN (Reason: nausea and vomiting) Qty: 6 0RF dicyclomine 20 mg tablet 20 mg PO TID PRN (Reason: abdominal pain) Qty: 7 0RF ondansetron 4 mg tablet,disintegrating 4 mg PO Q4H PRN (Reason: nausea and vomiting) 3 Days Qty: 6 0RF ciprofloxacin HCl 500 mg tablet 500 mg PO Q12H 5 Days Qty: 10 0RF No Action bisacodyl [Gentle Laxative (bisacodyl)] 5 mg tablet,delayed release (DR/EC) 5 mg PO DAILY omeprazole 40 mg capsule,delayed release(DR/EC) 40 mg PO DAILY ondansetron 4 mg tablet,disintegrating 4 mg translingual Q4H PRN (Reason: nausea and vomiting) promethazine 25 mg tablet 25 mg PO Q12H PRN (Reason: nausea and vomiting) Nurtec ODT 75 mg tablet,disintegrating 75 mg PO DAILY PRN (Reason: migraine headache) sucralfate 1 gram tablet 1 g PO Q6H dicyclomine 10 mg capsule 20 mg PO .4 times per day Instructions: Urinary Tract Infection in Women (ED), GERD (Gastroesophageal Reflux Disease) (ED), Acute Nausea and Vomiting (DC), Epigastric Pain (ED) Additional Instructions: Increase fluids at home. He can use Zofran ODT and Phenergan suppositories if needed. Follow-up with PCP a year gastrointestinal specialist, Dr. Cox. Increase fluids at home. Stand Alone Forms: Portal Instructions Referrals: STEPHANIE YOUSSEF [Primary Care Provider] - 1 week
[2023-06-06 09:07] VITALS: PULSE 73; RESP 13
[2023-06-06 09:09] VITALS: BP 141/95; PULSE 70; RESP 19
[2023-06-06 09:10] VITALS: PULSE 69; RESP 20
[2023-06-06] MEDS: ONDANSETRON PF 4 MG/2 ML VIAL IV (09:16)
[2023-06-06] MEDS: FAMOTIDINE/PF 20 MG/2 ML VIAL IV (09:16)
[2023-06-06] MEDS: MORPHINE SULFATE 2 MG/ML SYRINGE 4 MG IV (09:16)
[2023-06-06] MEDS: KETOROLAC TROMETHAMINE 30 MG/ML VIAL 15 MG IVP (09:16)
[2023-06-06] MEDS: PROCHLORPERAZINE 10 MG/2 ML VIAL IV (09:16)
[2023-06-06 09:20] VITALS: PULSE 77; RESP 17
[2023-06-06 09:21] LABS: Basophils Percent Auto 0.4 % (0.2-2.0); Eosinophils Absolute Auto 0.2 10^3/uL (0.0-0.7); Eosinophils Percent Auto 2.7 % (0.9-7.0); Hematocrit 39.6 % (36.0-48.0); Hemoglobin 12.9 g/dL (12.0-16.0); Immature Granulocytes Abs Auto 0.02 10^3/uL (0.00-0.03); Immature Granulocytes Pct Auto 0.2 % (0.0-0.5); Lymphocytes Absolute Auto 1.5 10^3/uL (1.2-3.8); Lymphocytes Percent Auto 17.7 % (20.5-60.0); Mean Corpuscular HGB Conc 32.6 g/dL (29.9-35.2); Mean Corpuscular Hemoglobin 29.4 pg (26.7-34.0); Mean Corpuscular Volume 90.2 fL (81.0-99.0); Mean Platelet Volume 9.3 fL (9.5-13.5); Monocytes Absolute Auto 0.6 10^3/uL (0.3-0.8); Monocytes Percent Auto 6.7 % (1.7-12.0); Neutrophils Absolute Auto 6.1 10^3/uL (1.4-6.5); Neutrophils Percent Auto 72.3 % (43.0-75.0); Platelet Count 355 10^3/uL (150-450); Red Blood Count 4.39 10^6/uL (4.20-5.40); Red Cell Distribution Width 13.2 % (11.0-15.0); White Blood Count 8.4 10^3/uL (4.0-11.0)
[2023-06-06] MEDS: 0.9 % SODIUM CHLORIDE 1,000 ML 999 ML IV (09:26)
[2023-06-06] MEDS: MAALOX (MAG HYDROX/ALUMINUM HYD/SIMETH) 30 ML ORAL.SUSP PO (09:26)
[2023-06-06 09:30] VITALS: PULSE 67; RESP 25
[2023-06-06 09:37] LABS: Bilirubin Urine NEGATIVE (NEGATIVE); Blood Urine SMALL (NEGATIVE); Color Urine LT. YELLOW (YELLOW); Glucose Urine UA NEGATIVE (NEGATIVE); Ketones Urine NEGATIVE (NEGATIVE); Leukocyte Esterase Urine NEGATIVE (NEGATIVE); Nitrite Urine POSITIVE (NEGATIVE); Protein Urine NEGATIVE (NEG/TRACE); Specific Gravity Urine 1.025 (1.005-1.025); Urobilinogen Urine 0.2 EU/dL (0.2-1.0)
[2023-06-06 09:38] LABS: Clarity Urine SLIGHTLY CLOUDY (CLEAR); Urine Microscopic Indicated YES
[2023-06-06 09:42] LABS: Bacteria Urine LARGE #/HPF (NONE SEEN); RBC Urine 0-2 #/HPF (0-2)
[2023-06-06 09:43] LABS: Cast Seen? NONE SEEN #/LPF (NONE SEEN); Crystals Seen? None Seen #/HPF (None Seen); Mucus Urine NONE SEEN (NONE SEEN); Squamous Epithelial Cell Urine FEW #/LPF (NONE/RARE); Urine Culture Indicated YES
[2023-06-06 09:44] LABS: Alanine Aminotransferase 19 U/L (14-59); Albumin Globulin Ratio 0.9; Albumin Level 3.6 g/dL (3.4-5.0); Alkaline Phosphatase 125 U/L (46-116); Anion Gap 12.3; Aspartate Amino Transferase 13 U/L (15-37); BUN Creatinine Ratio 24.7; Bilirubin Total 0.3 mg/dL (0.2-1.0); Calcium 9.7 mg/dL (8.5-10.1); Carbon Dioxide 27.5 mmol/L (21.0-32.0); Chloride 105 mmol/L (98-107); Estimated GFR (African America >60 (>=60); Estimated GFR (Non-African Ame >60 (>=60); Globulin 3.8 g/dL; Glucose 109 mg/dL (74-106); Potassium 3.8 mmol/L (3.5-5.1); Sodium 141 mmol/L (136-145); Total Protein 7.4 g/dL (6.4-8.2)
[2023-06-06 09:47] LABS: Lactate/Lactic Acid 1.2 mmol/L (0.4-2.0)
[2023-06-06 09:54] LABS: Troponin I High Sensitivity 75.9 pg/mL (4.0-51.3)
[2023-06-06] MEDS: CIPROFLOXACIN HCL 500 MG TABLET PO (10:16)
[2023-06-06 10:31] LABS: Troponin I High Sensitivity 69.3 pg/mL (4.0-51.3)
[2023-06-06] MEDS: DICYCLOMINE HCL 20 MG/2 ML VIAL IM (10:47)
== END 2023-06-06 12:17 | disposition home or self-care (01) ==
PROVIDERS: Emergency Provider Emergency Medicine; PCP Nurse Practitioner Family
DX: N39.0 Urinary tract infection, site not specified (principal); R10.13 Epigastric pain; R11.2 Nausea with vomiting, unspecified; I34.1 Nonrheumatic mitral (valve) prolapse; Z90.49 Acquired absence of other specified parts of digestive tract; Z79.899 Other long term (current) drug therapy; F17.210 Nicotine dependence, cigarettes, uncomplicated
CPT/HCPCS: 36415; 74022; 80053; 81001; 83605; 83690; 84484; 85025; 87086; 87150; 87186; 93005; 96361; 96372; 96374; 96375; 99285; J0500

== ENCOUNTER 2023-06-28 06:31 | Emergency (ER) | payer BC, SELFPAY ==
[2023-06-28 06:37] VITALS: BP 162/100; PULSE 68; RESP 16; TEMP 36.3; O2SAT 97; BMI 29.3
--- NOTE | 2023-06-28 07:03 | ED_ITS ---
HPI - General Adult General Chief complaint: Back Pain/Injury Stated complaint: ABD BACK PAIN Time Seen by Provider: 06/28/23 06:50 Source: patient Mode of arrival: walk-in History of Present Illness HPI narrative: Patient with urinary symptoms and left sided flank and abdominal pain that all began last night. She finished a course of antibiotics for UTI last week. She noted increased urinary frequency yesterday and then developed left flank pain last night. She had some nausea but did not vomit. This morning she woke with left sided abdominal pain and had some diarrhea. No fever or chills. Related Data Home Medications Medication Instructions Recorded Confirmed bisacodyl 5 mg tablet,delayed 5 mg PO DAILY 02/26/23 06/06/23 release (Gentle Laxative (bisacodyl)) omeprazole 40 mg capsule,delayed 40 mg PO DAILY 02/26/23 06/06/23 release ondansetron 4 mg disintegrating 4 mg translingual Q4H PRN nausea 02/26/23 06/06/23 tablet and vomiting promethazine 25 mg tablet 25 mg PO Q12H PRN nausea and 02/26/23 06/06/23 vomiting rimegepant 75 mg disintegrating 75 mg PO DAILY PRN migraine 02/26/23 06/06/23 tablet (Nurtec ODT) headache sucralfate 1 gram tablet 1 g PO Q6H 02/26/23 06/06/23 dicyclomine 10 mg capsule 20 mg PO .4 times per day 06/06/23 06/06/23 Previous Rx's Medication Instructions Recorded ciprofloxacin HCl 500 mg tablet 500 mg PO Q12H 5 days #10 tabs 06/06/23 dicyclomine 20 mg tablet 20 mg PO TID PRN abdominal pain #7 06/06/23 tabs ondansetron 4 mg disintegrating 4 mg PO Q4H PRN nausea and 06/06/23 tablet vomiting 3 days #6 tabs promethazine 25 mg rectal 25 mg TN Q6H PRN nausea and 06/06/23 suppository vomiting #6 ea hyoscyamine sulfate 0.125 mg 0.125 mg PO Q6H PRN abdominal pain 06/28/23 sublingual tablet (Levsin/SL) #20 tabs nabumetone 750 mg tablet 750 mg PO BID PRN pain #14 tabs 06/28/23 Allergies Allergy/AdvReac Type Severity Reaction Status Date / Time cyclobenzaprine Allergy Severe Anaphylaxis Verified 06/28/23 06:41 [From Flexeril] Penicillins Allergy Intermediate Hives Verified 06/28/23 06:41 [facility] Social History Smoking status: Never smoker Exam Narrative Exam Narrative: Nurses notes and vital signs reviewed and patient is not hypoxic. afebrile General: Well-appearing and in no apparent distress. Skin: Warm, dry, no pallor noted. No rash to abdomen or flank. Eye: Pupils are equal, round and EOMI. No scleral icterus. Cardiovascular: Regular Rate and Rhythm without murmur, gallop or rub. Respiratory: No accessory muscle use or respiratory distress. Lungs are clear to auscultation, no wheezing, rales or rhonchi Back: No midline thoracic or lumbar vertebral tenderness. Left CVA tenderness Musculoskeletal: normal ROM, no calf or popliteal tenderness, no lower extremity edema/swelling GI: Abdomen is soft, non-distended. Normal bowel sounds. No masses appreciated. Mild suprapubic and left lower abdominal tenderness to palpation. No rebound, guarding, or rigidity noted. Neurological: A&O x4. No cranial nerve dysfunction observed. No truncal ataxia. Moves all extremities. Sensation intact. Psychiatric: Cooperative and interactive. Normal mood and affect. Constitutional Vital Signs, click to edit/add: Last Vital Signs Temp 97.5 F L 06/28/23 08:26 Pulse 74 06/28/23 08:26 Resp 16 06/28/23 08:26 BP 150/85 H 06/28/23 08:26 Pulse Ox 97 06/28/23 08:26 O2 Del Method Nasal Cannula 06/28/23 08:26 Course Vital Signs Vital signs: Vital Signs Temperature 97.4 F L 06/28/23 06:37 Pulse Rate 68 06/28/23 06:37 Respiratory Rate 16 06/28/23 06:37 Blood Pressure 162/100 H 06/28/23 06:37 Pulse Oximetry 97 06/28/23 06:37 Temperature 97.5 F L 06/28/23 08:26 Pulse Rate 74 06/28/23 08:26 Respiratory Rate 16 06/28/23 08:26 Blood Pressure 150/85 H 06/28/23 08:26 Pulse Oximetry 97 06/28/23 08:26 Oxygen Delivery Method Nasal Cannula 06/28/23 08:26 Medical Decision Making MDM Narrative Medical decision making narrative: urine sent for testing. Stool also ordered to be sent for testing. She received oral Zofran, Levsin and Toradol. UA was negative. She was sent for CT scanning of the abdomen and pelvis. All results were negative and the CT did not find anything to account for the patient's symptoms. She was not able to give us a diarrhea sample. She was informed of results and discharged home with prescriptions for Levsin and Relafen. Lab Data Lab results reviewed: Yes I reviewed the patient's lab results Labs: Lab Results 06/28/23 Range/Units 07:08 Urine Color Lt. yellow (YELLOW) Urine Clarity Clear (CLEAR) Urine pH 5.5 (5.0-9.0) Ur Specific [place] >=1.030 A (1.005-1.025) Urine Protein Negative (NEG/TRACE) mg/dL Urine Glucose (UA) Negative (NEGATIVE) mg/dL Urine Ketones Negative (NEGATIVE) mg/dL Urine Occult Blood Trace-i (NEGATIVE) Urine Nitrite Negative (NEGATIVE) Urine Bilirubin Negative (NEGATIVE) Urine Urobilinogen 0.2 (0.2-1.0) EU/dL Ur Leukocyte Esterase Negative (NEGATIVE) Urine RBC 0-2 (0-2) #/HPF Urine WBC None seen (NONE SEEN) #/HPF Ur Squamous Epith Cells None seen (NONE/RARE) #/LPF Urine Crystals None seen (None Seen) #/HPF Urine Bacteria None seen (NONE SEEN) #/HPF Urine Casts None seen (NONE SEEN) #/LPF Urine Mucus Trace A (NONE SEEN) Ur Culture Indicated? No Imaging Data CT scan - abdomen: Radiologist's impression: Patient Name: CONSTANTINO CARDOSO MRN: [id number] date: 1970 Sex: F Assigned Patient Location: ER Current Patient Location: ER Accession/Order Number: [id number] Exam Date: 06/28/2023 07:37 Report Date: 06/28/2023 08:05 At the request of: STEPHANIE MULLIGAN Procedure: CT abdomen pelvis wo con EXAMINATION: CT abdomen pelvis wo con HISTORY: left flank and left abd pain COMPARISON: CT abdomen pelvis 03/25/2023 TECHNIQUE: Axial, Coronal, and Sagittal images were obtained without and/or with IV contrast as indicated by examination type. Dose reduction techniques were achieved by using automated exposure control and/or adjustment of mA and/or kV according to patient size and/or use of iterative reconstruction technique. FINDINGS: LUNG BASES: No visible pulmonary or pleural disease. LIVER: No enlargement, atrophy, suspicious density, or significant focal lesion. BILIARY: Cholecystectomy. PANCREAS: No lesion, fluid collection, or abnormal duct dilatation. SPLEEN: No enlargement or focal lesion. ADRENALS: No mass or enlargement. KIDNEYS: No mass, obstruction, or calcification. BOWEL/MESENTERY: Prior gastric wrap for hernia repair. No significant diverticular disease. No visible mass, obstruction, or bowel wall thickening. AORTA/VASCULAR: No aneurysm or dissection. RETROPERITONEUM: No mass or adenopathy. LYMPH NODES: No adenopathy. URINARY BLADDER: No visible focal wall thickening, lesion, or calculus. PELVIC ORGANS: Hysterectomy. ABDOMINAL WALL: No mass or hernia. BONES: No bony lesion or fracture. OTHER: Negative. IMPRESSION: 1. No urinary tract calculi or obstructive uropathy. 2. No acute or suspicious findings to account for patient's symptoms. Electronically authenticated by: RUSH FALCON Date: 06/28/2023 08:05 Discharge Plan Discharge Chief Complaint: Back Pain/Injury Clinical Impression: Acute flank pain, Abdominal pain Patient Disposition: Home, Self-Care Time of Disposition Decision: 08:39 Prescriptions / Home Meds: New nabumetone 750 mg tablet 750 mg PO BID PRN (Reason: pain) Qty: 14 0RF hyoscyamine sulfate [Levsin/SL] 0.125 mg tablet, sublingual 0.125 mg PO Q6H PRN (Reason: abdominal pain) Qty: 20 0RF No Action bisacodyl [Gentle Laxative (bisacodyl)] 5 mg tablet,delayed release (DR/EC) 5 mg PO DAILY omeprazole 40 mg capsule,delayed release(DR/EC) 40 mg PO DAILY ondansetron 4 mg tablet,disintegrating 4 mg translingual Q4H PRN (Reason: nausea and vomiting) promethazine 25 mg tablet 25 mg PO Q12H PRN (Reason: nausea and vomiting) Nurtec ODT 75 mg tablet,disintegrating 75 mg PO DAILY PRN (Reason: migraine headache) sucralfate 1 gram tablet 1 g PO Q6H dicyclomine 10 mg capsule 20 mg PO .4 times per day promethazine 25 mg suppository 25 mg TN Q6H PRN (Reason: nausea and vomiting) Qty: 6 0RF dicyclomine 20 mg tablet 20 mg PO TID PRN (Reason: abdominal pain) Qty: 7 0RF ondansetron 4 mg tablet,disintegrating 4 mg PO Q4H PRN (Reason: nausea and vomiting) 3 Days Qty: 6 0RF ciprofloxacin HCl 500 mg tablet 500 mg PO Q12H 5 Days Qty: 10 0RF Instructions: Abdominal Pain (ED), Flank Pain (ED) Stand Alone Forms: Portal Instructions Referrals: STEPHANIE YOUSSEF [Primary Care Provider] - 1 week Discharge Date/Time: 06/28/23 08:51
[2023-06-28] MEDS: ONDANSETRON 4 MG RAPDIS TABLET SL (07:16)
[2023-06-28] MEDS: KETOROLAC TROMETHAMINE 10 MG TABLET PO (07:16)
[2023-06-28] MEDS: HYOSCYAMINE SULFATE 0.125 MG TAB.SUBL SL (07:16)
[2023-06-28 07:20] LABS: Bilirubin Urine NEGATIVE (NEGATIVE); Blood Urine TRACE-I (NEGATIVE); Clarity Urine CLEAR (CLEAR); Color Urine LT. YELLOW (YELLOW); Glucose Urine UA NEGATIVE (NEGATIVE); Ketones Urine NEGATIVE (NEGATIVE); Leukocyte Esterase Urine NEGATIVE (NEGATIVE); Nitrite Urine NEGATIVE (NEGATIVE); Protein Urine NEGATIVE (NEG/TRACE); Specific Gravity Urine >=1.030 (1.005-1.025); Urobilinogen Urine 0.2 EU/dL (0.2-1.0); pH Urine 5.5 (5.0-9.0)
[2023-06-28 07:24] LABS: Urine Microscopic Indicated YES
--- NOTE | 2023-06-28 07:30 | CT_ITS ---
[address] [address] Patient Name: CONSTANTINO CARDOSO MRN: [id number] date: 1970 Sex: F Assigned Patient Location: ER Current Patient Location: ER Accession/Order Number: [id number] Exam Date: 06/28/2023 07:37 Report Date: 06/28/2023 08:05 At the request of: STEPHANIE MULLIGAN Procedure: CT abdomen pelvis wo con EXAMINATION: CT abdomen pelvis wo con HISTORY: left flank and left abd pain COMPARISON: CT abdomen pelvis 03/25/2023 TECHNIQUE: Axial, Coronal, and Sagittal images were obtained without and/or with IV contrast as indicated by examination type. Dose reduction techniques were achieved by using automated exposure control and/or adjustment of mA and/or kV according to patient size and/or use of iterative reconstruction technique. FINDINGS: LUNG BASES: No visible pulmonary or pleural disease. LIVER: No enlargement, atrophy, suspicious density, or significant focal lesion. BILIARY: Cholecystectomy. PANCREAS: No lesion, fluid collection, or abnormal duct dilatation. SPLEEN: No enlargement or focal lesion. ADRENALS: No mass or enlargement. KIDNEYS: No mass, obstruction, or calcification. BOWEL/MESENTERY: Prior gastric wrap for hernia repair. No significant diverticular disease. No visible mass, obstruction, or bowel wall thickening. AORTA/VASCULAR: No aneurysm or dissection. RETROPERITONEUM: No mass or adenopathy. LYMPH NODES: No adenopathy. URINARY BLADDER: No visible focal wall thickening, lesion, or calculus. PELVIC ORGANS: Hysterectomy. ABDOMINAL WALL: No mass or hernia. BONES: No bony lesion or fracture. OTHER: Negative. CT/CT abdomen pelvis wo con IMPRESSION: 1. No urinary tract calculi or obstructive uropathy. 2. No acute or suspicious findings to account for patient's symptoms. Electronically authenticated by: RUSH FALCON Date: 06/28/2023 08:05
[2023-06-28 07:34] LABS: Bacteria Urine NONE SEEN #/HPF (NONE SEEN); Cast Seen? NONE SEEN #/LPF (NONE SEEN); Crystals Seen? None Seen #/HPF (None Seen); Mucus Urine TRACE (NONE SEEN); RBC Urine 0-2 #/HPF (0-2); Squamous Epithelial Cell Urine NONE SEEN #/LPF (NONE/RARE); WBC Urine NONE SEEN #/HPF (NONE SEEN)
[2023-06-28 07:35] LABS: Urine Culture Indicated NO
[2023-06-28 08:26] VITALS: BP 150/85; PULSE 74; RESP 16; TEMP 36.4; O2SAT 97
== END 2023-06-28 08:51 | disposition home or self-care (01) ==
PROVIDERS: Emergency Provider Emergency Medicine; PCP Nurse Practitioner Family
DX: R10.9 Unspecified abdominal pain (principal); Z87.440 Personal history of urinary (tract) infections; Z79.899 Other long term (current) drug therapy
CPT/HCPCS: 74176; 81001; 87507; 99284

== ENCOUNTER 2023-07-29 09:45 | Emergency (ER) | payer BC, SELFPAY ==
[2023-07-29 09:49] VITALS: BP 145/100; PULSE 69; RESP 20; TEMP 36.6; O2SAT 98; BMI 28.7
[2023-07-29 10:06] LABS: Bilirubin Urine NEGATIVE (NEGATIVE); Blood Urine NEGATIVE (NEGATIVE); Clarity Urine SL CLOUDY (CLEAR); Color Urine LT. YELLOW (YELLOW); Glucose Urine UA NEGATIVE (NEGATIVE); Ketones Urine NEGATIVE (NEGATIVE); Leukocyte Esterase Urine TRACE (NEGATIVE); Nitrite Urine NEGATIVE (NEGATIVE); Protein Urine NEGATIVE (NEG/TRACE); Specific Gravity Urine 1.015 (1.005-1.025); Urobilinogen Urine 0.2 EU/dL (0.2-1.0); pH Urine 8.5 (5.0-9.0)
--- NOTE | 2023-07-29 10:13 | ED.ABDPAIN1 ---
HPI - Abdominal Pain General Chief Complaint: Abdominal Pain Stated Complaint: ABDOMINAL PAIN Time Seen by Provider: 07/29/23 10:08 Source: patient Mode of arrival: walk-in History of Present Illness HPI narrative: this patient is here for evaluation of abdominal pain. She has a history of recurring bowel obstructions. She last had endoscopy by her Dr. Cox in [place]. After that procedure was done as an outpatient she states that he told her that she would need surgery and they're waiting to get that scheduled. She did not have any details as to what or where the obstructive phenomena zap. She says she started vomiting yesterday. She has not been L Bre drank for several days. She said her last bowel movement was three days ago. She is passing some gas. She is not running a fever. She has diffuse abdominal pain. She is afebrile here. She's tried several laxatives to get her bowels to move but it has not been successful. She does not have any chest pain shortness of breath or cardiovascular complaints today. she is somewhat anxious but very pleasant. Related Data Home Medications Medication Instructions Recorded Confirmed omeprazole 40 mg capsule,delayed 40 mg PO DAILY 02/26/23 07/29/23 release ondansetron 4 mg disintegrating 4 mg translingual Q4H PRN nausea 02/26/23 07/29/23 tablet and vomiting promethazine 25 mg tablet 25 mg PO Q12H PRN nausea and 02/26/23 07/29/23 vomiting rimegepant 75 mg disintegrating 75 mg PO DAILY PRN migraine 02/26/23 07/29/23 tablet (Nurtec ODT) headache Previous Rx's Medication Instructions Recorded dicyclomine 20 mg tablet 20 mg PO TID PRN abdominal pain #7 06/06/23 tabs promethazine 25 mg rectal 25 mg WV Q6H PRN nausea and 06/06/23 suppository vomiting #6 ea hyoscyamine sulfate 0.125 mg 0.125 mg PO Q6H PRN abdominal pain 06/28/23 sublingual tablet (Levsin/SL) #20 tabs nabumetone 750 mg tablet 750 mg PO BID PRN pain #14 tabs 06/28/23 Allergies Allergy/AdvReac Type Severity Reaction Status Date / Time cyclobenzaprine Allergy Severe Anaphylaxis Verified 06/28/23 06:41 [From Flexeril] Penicillins Allergy Intermediate Hives Verified 06/28/23 06:41 PFSH PFSH Social History Smoking status: Never smoker Exam Narrative Exam Narrative: awake alert complaining of abdominal pain she is moving about comfortably on the cart and not lying still. She is afebrile vital signs are stable. His Her skin is warm and dry there is no pallor or diaphoresis. ENT examination shows no evidence of scleral icterus. Her respirations she had no cough congestion or shortness of breath. Her abdomen has active bowel sounds in all quadrants there is no guarding rebound rigidity or peritoneal findings. Her symptoms are diffuse in the upper left and right side. Extremities show good tissue perfusion with no pallor or tissue ischemia. Neurological no focal neurological symptoms or deficits cognition is normal as noted. Constitutional Vital Signs, click to edit/add: Last Vital Signs Temp 97.8 F 07/29/23 09:49 Pulse 60 07/29/23 12:06 Resp 20 07/29/23 12:06 BP 142/89 H 07/29/23 12:06 Pulse Ox 97 07/29/23 12:06 O2 Del Method Room Air 07/29/23 12:06 Course Vital Signs Vital signs: Vital Signs Temperature 97.8 F 07/29/23 09:49 Pulse Rate 69 07/29/23 09:49 Respiratory Rate 20 07/29/23 09:49 Blood Pressure 145/100 H 07/29/23 09:49 Pulse Oximetry 98 07/29/23 09:49 Oxygen Delivery Method Room Air 07/29/23 09:49 Temperature 97.8 F 07/29/23 09:49 Pulse Rate 60 07/29/23 12:06 Respiratory Rate 20 07/29/23 12:06 Blood Pressure 142/89 H 07/29/23 12:06 Pulse Oximetry 97 07/29/23 12:06 Oxygen Delivery Method Room Air 07/29/23 12:06 MDM - Abdominal Pain MDM Narrative Medical decision making narrative: his patient's history of recurrent bowel obstructions, no bowel movement for three days a CT scan of the abdomen was done with IV contrast. The report was noted by the radiologist as showing a small 1.8 cm density in the right calyceal area of her right kidney. There is no actual obstruction. When compared to a noncontrast CT of her abdomen done one month ago, the radiologist Dr. Epps said he still concerned that there may be some soft tissue growth or other abnormality in the area and would recommend a CT urogram as an outpatient, it need not be done at this time. Her laboratory studies show basically normal white blood cell count, normal urinalysis pancreatic testing is all normal and there is no acute explanation for her findings. All these results were discussed in detail with her and I also spoke with Dr. George who is her primary care practitioner and he will assure follow-up to reevaluate this incidental finding in her right kidney. Lab Data Labs: Lab Results 07/29/23 07/29/23 Range/Units 09:55 10:25 WBC 5.3 (4.0-11.0) 10^3/uL RBC 4.33 (4.20-5.40) 10^6/uL Hgb 12.8 (12.0-16.0) g/dL Hct 39.2 (36.0-48.0) % MCV 90.5 (81.0-99.0) fL MCH 29.6 (26.7-34.0) pg MCHC 32.7 (29.9-35.2) g/dL RDW 13.3 (11.0-15.0) % Plt Count 363 (150-450) 10^3/uL MPV 9.5 (9.5-13.5) fL Neut % (Auto) 59.0 (43.0-75.0) % Lymph % (Auto) 31.3 (20.5-60.0) % Gilliam % (Auto) 6.1 (1.7-12.0) % Eos % (Auto) 3.0 (0.9-7.0) % Baso % (Auto) 0.4 (0.2-2.0) % Neut # (Auto) 3.1 (1.4-6.5) 10^3/uL Lymph # (Auto) 1.7 (1.2-3.8) 10^3/uL Gilliam # (Auto) 0.3 (0.3-0.8) 10^3/uL Eos # (Auto) 0.2 (0.0-0.7) 10^3/uL Baso # (Auto) 0.0 (0.0-0.1) 10^3/uL Abs Immat Gran (auto) 0.01 (0.00-0.03) 10^3/uL Imm/Tot Granulo (auto) 0.2 (0.0-0.5) % Sodium 147 H (136-145) mmol/L Potassium 3.9 (3.5-5.1) mmol/L Chloride 107 (98-107) mmol/L Carbon Dioxide 28.1 (21.0-32.0) mmol/L Anion Gap 15.8 BUN 14.0 (7.0-18.0) mg/dL Creatinine 0.83 (0.55-1.02) mg/dL Est GFR ( Amer) >60 (>=60) Est GFR (Non-Af Amer) >60 (>=60) BUN/Creatinine Ratio 16.9 Glucose 115 H (74-106) mg/dL Calcium 9.2 (8.5-10.1) mg/dL Total Bilirubin 0.6 (0.2-1.0) mg/dL AST 16 (15-37) U/L ALT 22 (14-59) U/L Alkaline Phosphatase 126 H (46-116) U/L Total Protein 7.6 (6.4-8.2) g/dL Albumin 3.8 (3.4-5.0) g/dL Globulin 3.8 g/dL Albumin/Globulin Ratio 1.0 Lipase 20.0 (16.0-77.0) U/L Urine Color Lt. yellow (YELLOW) Urine Clarity Sl cloudy (CLEAR) Urine pH 8.5 (5.0-9.0) Ur Specific Adel 1.015 (1.005-1.025) Urine Protein Negative (NEG/TRACE) mg/dL Urine Glucose (UA) Negative (NEGATIVE) mg/dL Urine Ketones Negative (NEGATIVE) mg/dL Urine Occult Blood Negative (NEGATIVE) Urine Nitrite Negative (NEGATIVE) Urine Bilirubin Negative (NEGATIVE) Urine Urobilinogen 0.2 (0.2-1.0) EU/dL Ur Leukocyte Esterase Trace A (NEGATIVE) Urine RBC None seen (0-2) #/HPF Urine WBC 0-2 A (NONE SEEN) #/HPF Ur Squamous Epith Cells Few A (NONE/RARE) #/LPF Urine Crystals Seen A (None Seen) #/HPF Amorphous Sediment Few Urine Bacteria Small A (NONE SEEN) #/HPF Urine Casts None seen (NONE SEEN) #/LPF Urine Mucus None seen (NONE SEEN) Ur Culture Indicated? Yes Discharge Plan Discharge Chief Complaint: Abdominal Pain Clinical Impression: Nausea and vomiting, Abdominal pain Patient Disposition: Home, Self-Care Time of Disposition Decision: 12:53 Prescriptions / Home Meds: No Action omeprazole 40 mg capsule,delayed release(DR/EC) 40 mg PO DAILY ondansetron 4 mg tablet,disintegrating 4 mg translingual Q4H PRN (Reason: nausea and vomiting) promethazine 25 mg tablet 25 mg PO Q12H PRN (Reason: nausea and vomiting) Nurtec ODT 75 mg tablet,disintegrating 75 mg PO DAILY PRN (Reason: migraine headache) nabumetone 750 mg tablet 750 mg PO BID PRN (Reason: pain) Qty: 14 0RF hyoscyamine sulfate [Levsin/SL] 0.125 mg tablet, sublingual 0.125 mg PO Q6H PRN (Reason: abdominal pain) Qty: 20 0RF promethazine 25 mg suppository 25 mg WV Q6H PRN (Reason: nausea and vomiting) Qty: 6 0RF dicyclomine 20 mg tablet 20 mg PO TID PRN (Reason: abdominal pain) Qty: 7 0RF Additional Instructions: consider laxatives such as [id number] mag citrate, clear fluid diet only for twenty-four hours/Zofran as needed for nausea follow-up with primary care doctor as discussed for further diagnostic testing Stand Alone Forms: Portal Instructions Referrals: STEPHANIE YOUSSEF [Primary Care Provider] - 1 week
[2023-07-29 10:14] LABS: Urine Microscopic Indicated YES
--- NOTE | 2023-07-29 10:16 | CT_ITS ---
[address] [address] Patient Name: CONSTANTINO CARDOSO MRN: [id number] date: 1970 Sex: F Assigned Patient Location: ER Current Patient Location: Accession/Order Number: [id number] Exam Date: 07/29/2023 10:27 Report Date: 07/29/2023 10:54 At the request of: JOHNATHAN RUDOLPH Procedure: CT abdomen pelvis w con EXAMINATION: CT abdomen pelvis w con HISTORY: abdominal pain/rule out bowel obstruction , nausea and vomiting COMPARISON: CT abdomen pelvis 06/28/2023 TECHNIQUE: Axial, Coronal, and Sagittal images were obtained without and/or with IV contrast as indicated by examination type. Dose reduction techniques were achieved by using automated exposure control and/or adjustment of mA and/or kV according to patient size and/or use of iterative reconstruction technique. FINDINGS: LUNG BASES: No visible pulmonary or pleural disease. LIVER: No enlargement, atrophy, suspicious density, or significant focal lesion. BILIARY: No dilatation or calcification. PANCREAS: No lesion, fluid collection, or abnormal duct dilatation. SPLEEN: No enlargement or focal lesion. ADRENALS: No mass or enlargement. KIDNEYS: 1.8 cm rounded hypodense, heterogeneous area within lateral right kidney which may represent a dilated calyx or hypodense mass. BOWEL/MESENTERY: Fluid-filled loops of small bowel and colon throughout their length without abnormal wall thickening or obstruction. Stool within sigmoid colon and rectum. AORTA/VASCULAR: No aneurysm or dissection. RETROPERITONEUM: No mass or adenopathy. LYMPH NODES: No adenopathy. URINARY BLADDER: No visible focal wall thickening, lesion, or calculus. PELVIC ORGANS: Hysterectomy. ABDOMINAL WALL: No mass or hernia. BONES: No bony lesion or fracture. OTHER: Negative. CT/CT abdomen pelvis w con IMPRESSION: 1. Fluid-filled loops of small and large bowel without obstruction; possible enteritis or ileus. 2. New 1.8 cm dilated calyx within right kidney with mixed urine and contrast versus hypodense mass. Follow-up nonemergent CT abdomen without and with IV contrast and delayed images to evaluate enhancement. Electronically authenticated by: RUSH FALCON Date: 07/29/2023 10:54
[2023-07-29 10:26] LABS: Bacteria Urine SMALL #/HPF (NONE SEEN); Crystals Seen? Seen #/HPF (None Seen); Mucus Urine NONE SEEN (NONE SEEN); RBC Urine NONE SEEN #/HPF (0-2); Squamous Epithelial Cell Urine FEW #/LPF (NONE/RARE); WBC Urine 0-2 #/HPF (NONE SEEN)
[2023-07-29 10:27] LABS: Amorphous Sediment Urine FEW; Cast Seen? NONE SEEN #/LPF (NONE SEEN); Urine Culture Indicated YES
[2023-07-29] MEDS: HYDROMORPHONE HCL 1 MG/ML CARTRIDGE IV ×2 (10:37→11:44)
[2023-07-29 10:40] VITALS: PULSE 74; RESP 18; O2SAT 98
[2023-07-29 11:01] LABS: Basophils Percent Auto 0.4 % (0.2-2.0); Eosinophils Absolute Auto 0.2 10^3/uL (0.0-0.7); Hematocrit 39.2 % (36.0-48.0); Hemoglobin 12.8 g/dL (12.0-16.0); Immature Granulocytes Abs Auto 0.01 10^3/uL (0.00-0.03); Immature Granulocytes Pct Auto 0.2 % (0.0-0.5); Lymphocytes Absolute Auto 1.7 10^3/uL (1.2-3.8); Lymphocytes Percent Auto 31.3 % (20.5-60.0); Mean Corpuscular HGB Conc 32.7 g/dL (29.9-35.2); Mean Corpuscular Hemoglobin 29.6 pg (26.7-34.0); Mean Corpuscular Volume 90.5 fL (81.0-99.0); Mean Platelet Volume 9.5 fL (9.5-13.5); Monocytes Absolute Auto 0.3 10^3/uL (0.3-0.8); Monocytes Percent Auto 6.1 % (1.7-12.0); Neutrophils Absolute Auto 3.1 10^3/uL (1.4-6.5); Platelet Count 363 10^3/uL (150-450); Red Blood Count 4.33 10^6/uL (4.20-5.40); Red Cell Distribution Width 13.3 % (11.0-15.0); White Blood Count 5.3 10^3/uL (4.0-11.0)
[2023-07-29 11:15] LABS: Alanine Aminotransferase 22 U/L (14-59); Albumin Level 3.8 g/dL (3.4-5.0); Alkaline Phosphatase 126 U/L (46-116); Anion Gap 15.8; Aspartate Amino Transferase 16 U/L (15-37); BUN Creatinine Ratio 16.9; Bilirubin Total 0.6 mg/dL (0.2-1.0); Calcium 9.2 mg/dL (8.5-10.1); Carbon Dioxide 28.1 mmol/L (21.0-32.0); Chloride 107 mmol/L (98-107); Estimated GFR (African America >60 (>=60); Estimated GFR (Non-African Ame >60 (>=60); Globulin 3.8 g/dL; Glucose 115 mg/dL (74-106); Potassium 3.9 mmol/L (3.5-5.1); Sodium 147 mmol/L (136-145); Total Protein 7.6 g/dL (6.4-8.2)
[2023-07-29 12:06] VITALS: BP 142/89; PULSE 60; RESP 20; O2SAT 97
[2023-07-29] MEDS: ONDANSETRON PF 4 MG/2 ML VIAL IV (12:58)
== END 2023-07-29 13:08 | disposition home or self-care (01) ==
PROVIDERS: Emergency Provider Emergency Medicine Emergency Medical Services; PCP Nurse Practitioner Family
DX: R10.9 Unspecified abdominal pain (principal); R11.2 Nausea with vomiting, unspecified; Z79.899 Other long term (current) drug therapy
CPT/HCPCS: 36415; 74177; 80053; 81001; 83690; 85025; 87086; 87150; 87186; 96374; 96375; 96376; 99284; J1170; Q9967

== ENCOUNTER 2023-08-20 00:07 | Emergency (ER) | payer BC, SELFPAY ==
[2023-08-20 00:13] VITALS: BP 150/79; PULSE 71; RESP 16; TEMP 36.6; O2SAT 98; BMI 28.8
[2023-08-20 00:35] LABS: Bilirubin Urine NEGATIVE (NEGATIVE); Blood Urine TRACE-I (NEGATIVE); Clarity Urine CLEAR (CLEAR); Color Urine YELLOW (YELLOW); Glucose Urine UA NEGATIVE (NEGATIVE); Ketones Urine TRACE mg/dL (NEGATIVE); Leukocyte Esterase Urine NEGATIVE (NEGATIVE); Nitrite Urine NEGATIVE (NEGATIVE); Protein Urine NEGATIVE (NEG/TRACE); Urine Microscopic Indicated NO; Urobilinogen Urine 0.2 EU/dL (0.2-1.0)
--- NOTE | 2023-08-20 00:45 | ED.GENADUL1 ---
HPI - General Adult General Chief complaint: Back Pain/Injury Stated complaint: back pain Time Seen by Provider: 08/20/23 00:17 Source: patient Mode of arrival: walk-in History of Present Illness HPI narrative: patient presents complaining of pain across her lower back and pain RLQ. States she believes she may have a UTI. No hematuria, dysuria or fever. No complaint of nausea. States the past time she had these symptoms was in Nov and she was found to have a UTI Onset (ago): day(s) Related Data Home Medications Medication Instructions Recorded Confirmed ondansetron 4 mg disintegrating 4 mg translingual Q4H PRN nausea 02/26/23 08/20/23 tablet and vomiting rimegepant 75 mg disintegrating 75 mg PO DAILY PRN migraine 02/26/23 08/20/23 tablet (Nurtec ODT) headache Previous Rx's Medication Instructions Recorded dicyclomine 20 mg tablet 20 mg PO TID PRN abdominal pain #7 06/06/23 tabs Allergies Allergy/AdvReac Type Severity Reaction Status Date / Time cyclobenzaprine Allergy Severe Anaphylaxis Verified 08/20/23 00:17 [From Flexeril] Penicillins Allergy Intermediate Hives Verified 08/20/23 00:17 Review of Systems ROS Status of ROS 10 or more systems reviewed and unremarkable except as noted in history and below PFSH PFS Social History Smoking status: Never smoker Exam Constitutional Vital Signs, click to edit/add: Last Vital Signs Temp 97.8 F 08/20/23 00:13 Pulse 71 08/20/23 00:13 Resp 16 08/20/23 00:13 BP 150/79 H 08/20/23 00:13 Pulse Ox 98 08/20/23 00:13 O2 Del Method Room Air 08/20/23 00:13 Common normals: no apparent distress, average body habitus, oriented x3, no limitations, healthy appearing, alert and well nourished Eye Common normals: EOMs intact bilaterally and conjunctivae normal Respiratory Common normals: normal respiratory effort, no retractions, no use of accessory muscles and clear to auscultation bilaterally Cardio Common normals: regular rate, regular rhythm, S1 normal heart sound and S2 normal heart sound GI Other: mild RLQ tenderness Back & Pelvis Other: mild bilat CVA tenderness Extremity Common normals: normal to inspection and full ROM Neuro Common normals: oriented x3, CN's II-XII intact bilaterally, moves all extremities and no focal motor deficits Psych Appearance: grossly normal Course Vital Signs Vital signs: Vital Signs Temperature 97.8 F 08/20/23 00:13 Pulse Rate 71 08/20/23 00:13 Respiratory Rate 16 08/20/23 00:13 Blood Pressure 150/79 H 08/20/23 00:13 Pulse Oximetry 98 08/20/23 00:13 Oxygen Delivery Method Room Air 08/20/23 00:13 Temperature 97.8 F 08/20/23 00:13 Pulse Rate 71 08/20/23 00:13 Respiratory Rate 16 08/20/23 00:13 Blood Pressure 150/79 H 08/20/23 00:13 Pulse Oximetry 98 08/20/23 00:13 Oxygen Delivery Method Room Air 08/20/23 00:13 Medical Decision Making MDM Narrative Medical decision making narrative: patient presents complaining of pain across her lower back radiating to her RLQ concerning for possible UTI. Urine neg. CT neg. 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 Patient advised she may have stained back. She is provided with norflex for pain and given work note. She is to see her PCP in follow up Lab Data Labs: Lab Results 08/20/23 08/20/23 Range/Units 00:21 01:20 WBC 5.0 (4.0-11.0) 10^3/uL RBC 3.93 L (4.20-5.40) 10^6/uL Hgb 11.4 L (12.0-16.0) g/dL Hct 36.5 (36.0-48.0) % MCV 92.9 (81.0-99.0) fL MCH 29.0 (26.7-34.0) pg MCHC 31.2 (29.9-35.2) g/dL RDW 13.0 (11.0-15.0) % Plt Count 359 (150-450) 10^3/uL MPV 9.1 L (9.5-13.5) fL Neut % (Auto) 55.5 (43.0-75.0) % Lymph % (Auto) 33.5 (20.5-60.0) % Rolette % (Auto) 5.8 (1.7-12.0) % Eos % (Auto) 4.2 (0.9-7.0) % Baso % (Auto) 0.8 (0.2-2.0) % Neut # (Auto) 2.8 (1.4-6.5) 10^3/uL Lymph # (Auto) 1.7 (1.2-3.8) 10^3/uL Rolette # (Auto) 0.3 (0.3-0.8) 10^3/uL Eos # (Auto) 0.2 (0.0-0.7) 10^3/uL Baso # (Auto) 0.0 (0.0-0.1) 10^3/uL Abs Immat Gran (auto) 0.01 (0.00-0.03) 10^3/uL Imm/Tot Granulo (auto) 0.2 (0.0-0.5) % Sodium 140 (136-145) mmol/L Potassium 4.0 (3.5-5.1) mmol/L Chloride 105 (98-107) mmol/L Carbon Dioxide 27.8 (21.0-32.0) mmol/L Anion Gap 11.2 BUN 21.0 H (7.0-18.0) mg/dL Creatinine 0.81 (0.55-1.02) mg/dL Est GFR ( Amer) >60 (>=60) Est GFR (Non-Af Amer) >60 (>=60) BUN/Creatinine Ratio 25.9 Glucose 103 (74-106) mg/dL Calcium 9.1 (8.5-10.1) mg/dL Urine Color Yellow (YELLOW) Urine Clarity Clear (CLEAR) Urine pH 7.0 (5.0-9.0) Ur Specific Pitman 1.020 (1.005-1.025) Urine Protein Negative (NEG/TRACE) mg/dL Urine Glucose (UA) Negative (NEGATIVE) mg/dL Urine Ketones Trace A (NEGATIVE) mg/dL Urine Occult Blood Trace-i (NEGATIVE) Urine Nitrite Negative (NEGATIVE) Urine Bilirubin Negative (NEGATIVE) Urine Urobilinogen 0.2 (0.2-1.0) EU/dL Ur Leukocyte Esterase Negative (NEGATIVE) Discharge Plan Discharge Chief Complaint: Back Pain/Injury Clinical Impression: Strain of lumbar region Prescriptions / Home Meds: No Action ondansetron 4 mg tablet,disintegrating 4 mg translingual Q4H PRN (Reason: nausea and vomiting) Nurtec ODT 75 mg tablet,disintegrating 75 mg PO DAILY PRN (Reason: migraine headache) dicyclomine 20 mg tablet 20 mg PO TID PRN (Reason: abdominal pain) Qty: 7 0RF Instructions: Muscle Strain (ED) Referrals: STEPHANIE YOUSSEF [Primary Care Provider] - 1 week
[2023-08-20 01:30] LABS: Basophils Percent Auto 0.8 % (0.2-2.0); Eosinophils Absolute Auto 0.2 10^3/uL (0.0-0.7); Eosinophils Percent Auto 4.2 % (0.9-7.0); Hematocrit 36.5 % (36.0-48.0); Hemoglobin 11.4 g/dL (12.0-16.0); Immature Granulocytes Abs Auto 0.01 10^3/uL (0.00-0.03); Immature Granulocytes Pct Auto 0.2 % (0.0-0.5); Lymphocytes Absolute Auto 1.7 10^3/uL (1.2-3.8); Lymphocytes Percent Auto 33.5 % (20.5-60.0); Mean Corpuscular HGB Conc 31.2 g/dL (29.9-35.2); Mean Corpuscular Volume 92.9 fL (81.0-99.0); Mean Platelet Volume 9.1 fL (9.5-13.5); Monocytes Absolute Auto 0.3 10^3/uL (0.3-0.8); Monocytes Percent Auto 5.8 % (1.7-12.0); Neutrophils Absolute Auto 2.8 10^3/uL (1.4-6.5); Neutrophils Percent Auto 55.5 % (43.0-75.0); Platelet Count 359 10^3/uL (150-450); Red Blood Count 3.93 10^6/uL (4.20-5.40)
[2023-08-20 01:37] LABS: Anion Gap 11.2; BUN Creatinine Ratio 25.9; Calcium 9.1 mg/dL (8.5-10.1); Carbon Dioxide 27.8 mmol/L (21.0-32.0); Chloride 105 mmol/L (98-107); Estimated GFR (African America >60 (>=60); Estimated GFR (Non-African Ame >60 (>=60); Glucose 103 mg/dL (74-106); Sodium 140 mmol/L (136-145)
--- NOTE | 2023-08-20 01:37 | CT_ITS ---
The [address] [address] Patient Name: CONSTANTINO CARDOSO MRN: [id number] date: 1970 Sex: F Assigned Patient Location: ER Current Patient Location: ER Accession/Order Number: [id number] Exam Date: 08/20/2023 02:07 Report Date: 08/20/2023 03:16 At the request of: KATHRIN VANCE Procedure: CT abdomen pelvis wo con EXAM: CT abdomen pelvis wo con HISTORY: abdominal pain . Lower back pain. History of UTI. COMPARISON: CT abdomen pelvis, 06/28/2023. TECHNIQUE: Nonenhanced CT imaging the abdomen and pelvis was performed with sagittal and coronal reconstructions. FINDINGS: CT ABDOMEN: The lung bases are clear. Images lower heart is unremarkable. Cholecystectomy clips are unchanged. There is no biliary ductal dilatation. The exam is limited by the lack of IV contrast. Solid organ lesions or acute abnormalities could be missed. Allowing for this, the liver, pancreas, spleen, adrenal glands, kidneys, aorta, and IVC are grossly unremarkable. Prior Pricilla fundoplication is suggested with small hiatal hernia, unchanged. The nonenhanced stomach and small bowel are otherwise unremarkable. CT PELVIS: A normal appendix is seen on image 113 of series 3. The pelvic small bowel bowel loops, colon and urinary bladder appear unremarkable. Prior hysterectomy is noted. No inflammatory fat stranding, free fluid, loculated fluid or free air is seen in the abdomen or pelvis. A mild lumbar dextroscoliosis is noted. There is mild osteitis pubis on coronal image 37. No acute osseous abnormality or suspicious bony lesion is seen. CT/CT abdomen pelvis wo con IMPRESSION: 1. No urinary tract calculi or acute findings in the abdomen or pelvis. 2. Prior cholecystectomy, hysterectomy and Pricilla fundoplication with stable small hiatal hernia. Electronically authenticated by: THANIA COLORADO Date: 08/20/2023 03:16
[2023-08-20] MEDS: KETOROLAC TROMETHAMINE 60 MG/2 ML VIAL IM (02:47)
[2023-08-20] MEDS: ORPHENADRINE CITRATE 100 MG TABLET.ER PO (04:23)
== END 2023-08-20 04:25 | disposition home or self-care (01) ==
LOC: ER 00:12
PROVIDERS: Emergency Provider Internal Medicine; PCP Nurse Practitioner Family
DX: S39.012A Strain of muscle, fascia and tendon of lower back, initial encounter (principal); Z87.440 Personal history of urinary (tract) infections; Z79.899 Other long term (current) drug therapy; X58.XXXA Exposure to other specified factors, initial encounter
CPT/HCPCS: 36415; 74176; 80048; 81003; 85025; 96372; 99284

== ENCOUNTER 2023-08-22 07:43 | Outpatient (OUT) | payer BC, SELFPAY ==
--- NOTE | 2023-08-22 07:50 | CT_ITS ---
[address] [address] Patient Name: CONSTANTINO CARDOSO MRN: [id number] date: 1970 Sex: F Assigned Patient Location: CT Current Patient Location: CT Accession/Order Number: [id number] Exam Date: 08/22/2023 08:40 Report Date: 08/22/2023 09:54 At the request of: STEPHANIE YOUSSEF Procedure: CT abdomen pelvis wo/w con EXAM: CT abdomen pelvis wo/w con HISTORY: Abnormal Findings On CT R93.5 COMPARISON: 07/29/2023; 08/20/2023 TECHNIQUE: Axial CT images were obtained of the abdomen and pelvis without and with intravenous contrast. Postcontrast images were obtained in the delayed phase. Multiplanar reconstructions were performed. ABDOMEN/PELVIS FINDINGS: Lower Chest: Unremarkable. Liver: Normal enhancement and contour. Biliary/Gallbladder: Prior cholecystectomy. Pancreas: Unremarkable. Spleen: Unremarkable. Adrenal Glands: Unremarkable. Kidneys: There is a stable hypodense lesion in the upper pole of the right kidney measuring 1.5 cm. There is no appreciable enhancement or solid component. Gastrointestinal/Peritoneum: Postoperative changes are present of a Pricilla fundoplication. There is a small hiatal hernia. The appendix is unremarkable. No free air or free fluid. Vascular: Unremarkable. Lymph Nodes: No enlarged lymph nodes by CT size criteria. Pelvic Organs: Prior hysterectomy. Bladder: Unremarkable. Bones: No acute osseous abnormality. Soft tissues: Unremarkable. CT/CT abdomen pelvis wo/w con IMPRESSION: 1. No acute abnormality of the abdomen and pelvis. 2. Stable appearance of the hypodense lesion in the upper pole the right kidney, most likely representing a small cyst. 3. Prior cholecystectomy, Pricilla fundoplication and hysterectomy. 4. Small hiatal hernia. Electronically authenticated by: MICHAEL MALIK Date: 08/22/2023 09:54
== END 2023-08-22 07:44 | disposition home or self-care (01) ==
LOC: CT 07:43
PROVIDERS: PCP Nurse Practitioner Family; Visit Provider Nurse Practitioner Family
DX: R93.5 Abnormal findings on diagnostic imaging of other abdominal regions, including retroperitoneum (principal)
CPT/HCPCS: 74178; Q9967

== ENCOUNTER 2023-10-12 03:12 | Observation (INO) | payer BC, SELFPAY ==
[2023-10-12 03:15] VITALS: BP 148/96; PULSE 84; RESP 16; TEMP 36.7; O2SAT 98; BMI 26.6
--- NOTE | 2023-10-12 03:24 | PC.NURSE ---
Patient reports she began having some right lower quadrant pain around 1900. patient endorses she began having nausea, vomiting, and diarrhea around 0100 and felt weird. Coworker checked her blood sugar and it was found to be 59-patient reports she ate a candy bar and drank a pop to raise it.
[2023-10-12 03:27] VITALS: BP 152/95; PULSE 82; RESP 17; O2SAT 100
--- NOTE | 2023-10-12 03:28 | CT_ITS ---
The [address] [address] Patient Name: CONSTANTINO CARDOSO MRN: [id number] date: 1970 Sex: F Assigned Patient Location: ER Current Patient Location: ER Accession/Order Number: [id number] Exam Date: 10/12/2023 03:59 Report Date: 10/12/2023 04:45 At the request of: KATHRIN VANCE Procedure: CT abdomen pelvis w con EXAM: CT abdomen pelvis w con HISTORY: Abdominal pain. COMPARISON: The patient has undergone previous abdominal CTs most recently 06/28/2023, 07/29/2023, 08/20/2023, 08/22/2023. TECHNIQUE: Images of the abdomen and pelvis with IV contrast. Dose reduction techniques were achieved by using automated exposure control and/or adjustment of mA and/or kV according to patient size and/or use of iterative reconstruction technique. FINDINGS: Lung bases are clear. Small hiatal hernia. No pleural or pericardial fluid. No adrenal mass or adenopathy. No obstructive uropathy. Gallbladder has been removed. Portal vein is patent. Abdominal aorta is normal. No bowel obstruction or inflammation. No pneumatosis or pneumoperitoneum. Appendix is not identified. There is diffuse gaseous distention of the colon with formed stool in the cecum and ascending colon loops. No pelvic adenopathy or ascites. Uterus is absent. Bladder is normal. No acute bony abnormality. CT/CT abdomen pelvis w con IMPRESSION: 1. Mild colonic ileus pattern and constipation suspected. No additional acute abnormality or significant interval change. 2. Prior cholecystectomy, appendectomy, hysterectomy. Electronically authenticated by: APOLINAR SÁNCHEZ Date: 10/12/2023 04:45
--- OUTSIDE RECORDS SUMMARY | 2023-10-12 03:28 | XMS_ITS | CCD ---
Author Name Unknown Address [address] [place] [address] Organization [facility] Care Team Providers Care Criminal Investigative Agent Name Role Phone LEONA MORTENSEN Admitting Unavailable LEONA MORTENSEN Attending Unavailable KEVIN HERRERA Primary Care Unavailable KEVIN HERRERA Referring Unavailable [place] Procedure Practitioner Unavailab ORESTES Cruz Surgeon Unavailable JUDI YOUSSEF Primary Care Physician DONI Youssef Primary Care Provider DO Conner Griffith Emergency Provider Jennie Ayon Unavailable MD Jennie Ayon Attending Provider KLAUDIA, DR JOHNATHAN Botello Attending Unavailibis RUDOLPH, DR JOHNATHAN Botello Consulting Unavailibis RUDOLPH, DR JOHNATHAN Botello Admitting UnavailJUDI Duran Primary Care Unavailable MIKAEL, JUDI Primary Care Unavailable GARETH Larson, DR GR Attending Unavailable GARETH Larson, DR GR Consulting Unavailable GARETH Larson, DR GR Admitting Unavailable ASHLEE APPLE Consulting Unavailable JUDI YOUSSEF Admitting Unavailable MIKAEL, JUDI Primary Care Unavailable JUDI YOUSSEF Attending Unavailable KATHRIN VANCE Admitting Unavailable MIKAEL, JUDI Primary Care Unavailable KWAME, DR CASSANDRA Chopra Consulting Unavailable KATHRIN VANCE Attending Unavailable ISAAK Larson, DR BROWN Consulting Unavailable KATHRIN VANCE Consulting Unavailable PA, DR NORA Hairston Attending Unavailable PA, DR NORA Hairston Consulting Unavailable MIKAEL, JUDI Primary Care Unavailable PA, DR NORA Hairston Admitting Unavailable GUILLERMO ALLEN Unavailable SHAIKH Juan Luis DAVIS Admitting Unavailable MKIAEL JUDI Primary Care Unavailable DR GUILLERMO VANESSA Consulting Unavaila SHAIKH Juan Luis Grant Attending Unavailable DR RUSH FALCON Consulting Unavailable FAB ., BALTAZAR Consulting Unavailable SHAIKH Juan Luis DAVIS Consulting Unavailable CASSANDRA URBINA Unavailable FAB ., BALTAZAR Admitting Unavailable FAB ., BALTAZAR Attending Unavailable MIKAEL, JUDI Primary Care Unavailable JE .VIJI Consulting Unavailable FAB ., BALTAZAR Admitting Unavailable FAB ., BALTAZAR Attending Unavailable FAB ., BALTAZAR Consulting Unavailable MIKAEL, JUDI Primary Care Unavailable CALLY LANTIGUA Consulting Unavailable STEVE ., EUN LARSON Consulting Unavailabl e FAB ., BALTAZAR Admitting Unavailable FAB ., BALTAZAR Attending Unavailable MIKAEL, JUDI Primary Care Unavailable CHUNG WINN Consulting Unavailable PA, DR NORA Hairston Attending Unavailable PA, DR NORA Hairston Consulting Unavailable PA, DR NORA Hairston Admitting Unavailable MIKAEL, JUDI Primary Care Unavailable ORESTES VASQUEZ Consulting Unavailable MIKAEL, JUDI Admitting Unavailable MIKAEL, JUDI Primary Care Unavailable ZIEBER, DR RUSH Hairston Consulting Unavailable MIKAEL, JUDI Attending Unavailable MIKAEL, JUDI Consulting Unavailable MIKAEL, JUDI Admitting Unavailable MIKAEL, JUDI Consulting Unavailable MIKAEL, JUDI Attending Unavailable MIKAEL, JUDI Primary Care Unavailable FAB ., BALTAZAR Consulting Unavailable FAB ., BALTAZAR Admitting Unavailable FAB ., BALTAZAR Attending Unavailable MIKAEL, JUID Primary Care Unavailable MIKAEL, JUDI Admitting Unavailable ZIEBER, DR RUSH Hairston Consulting Unavailable MIKAEL, JUDI Attending Unavailable MIKAEL, JUDI Primary Care Unavailable MIKAEL, JUDI Consulting Unavailable MIKAEL, JUDI Primary Care Unavailable ISAAK ., DR BROWN Admitting Unavailable ISAAK ., DR BROWN Attending Unavailable KWAME, DR CASSANDRA Chopra Consulting Unavailable BORIS ., MARTHA Consulting Unavailable FAB ., BALTAZAR Admitting Unavailable FAB ., BALTAZAR Attending Unavailable MIKAEL, JUDI Primary Care Unavailable ARIANE RIZVI Consulting Unavailable FAB ., BALTAZAR Consulting Unavailable MIKAEL, JUDI Primary Care Unavailable FAB ., BALTAZAR Consulting Unavailable FAB ., BALTAZAR Admitting Unavailable FAB ., BALTAZAR Attending Unavailable CASSANDRA LISA Consulting Unavailable FAB ., BALTAZAR Admitting Unavailable FAB ., BALTAZAR Attending Unavailable STEVE .EUN Consulting Unavailabl e MIKAEL, JUDI Primary Care Unavailable MIKAEL, JUDI Admitting Unavailable ZIEBER, DR RUSH Hairston Consulting Unavailable MIKAEL, JUDI Attending Unavailable MIKAEL, JUDI Primary Care Unavailable MIKAEL, JUDI Consulting Unavailable MIKAEL, JUDI Admitting Unavailable DR CASSANDRA PUENTE V Consulting Unavailable MIKAEL, JUDI Attending Unavailable MIKAEL, JUDI Primary Care Unavailable JUDI YOUSSEF Consulting Unavailable LINDA Youssef[facility] Primary Care Provider Gladis DO Prieto M Emergency Provider [phone] DO Pete Thakkar Emergency Provider [phone] [facility] Primary Care Provider Rafa Rangel Unavailable Renny Gan Unavailable [phone] Mikael, Judi Joan Primary Care Unavailable Gladis, Conner M Admitting Unavailable Gladis, Conner M Attending Unavailable Mikael, [facility] Primary Care Unavailable Asaad, Imad Admitting Unavailable Asaad, Imad Attending Unavailable Renny Gan Consulting Unavailabl e [facility], [facility] Primary Care Unavailable Deann Montalvo Attending Unavailable Alahmad, Alaa Admitting Unavailable Mikael, Judi Joan Primary Care Unavailable Gladis, Conner M Admitting Unavailable Gladis, Conner M Attending Unavailable Mikael, [facility] Primary Care Unavailable Pete Thakkar A Admitting Unavailable Pete Thakkar Attending Unavailable Samuel Estrella Attending Unavailable Monique Marquez Attending Unavailable Anai REAGAN Attending Unavailable Zabrina Patton Attending Unavailable MARQUES BRADLEY [facility] Primary Care Unavailable KRMARQUES HAGER Referring Unavailable KROHMARQUES Attending Unavailable IMER CHERRY Referring Unavailable [facility] Primary Care Unavailable [facility] Primary Care Unavailable KROHMARQUES Referring Unavailable KAITLYN TORRES Attending Unavailable KROHMARQUES Referring Unavailable [facility] Primary Care Unavailable MELISSA MONTALVO Attending Unavailable KROHMARQUES Referring Unavailable [facility] Primary Care Unavailable SLYSLY Attending Unavailable KROHMARQUES Referring Unavailable [facility] Primary Care Unavailable BRENNEN SHAW Attending Unavailable Allergies Allergy Classification Reported Allergen(s) Allergy Type Date of Onset Reaction(s) Facility (5 sources) cyclobenzaprine; Translations: [CYCLOBENZAPRINE] Drug Allergy 04-28-20 18 Swelling of Lip/Tongue/Thr oat [facility] Repository (6 sources) Penicillins Drug allergy (disorder) 09-02-20 15 Rash [facility] (20 sources) cyclobenzaprine; Translations: [cyclobenzaprine] Drug Allergy 04-28-20 18 Pharyngeal swelling (finding), Swelling [facility] (20 sources) Penicillin; Translations: [penicillin] Drug Allergy 04-28-20 18 Swelling (morphologic abnormality), Swelling [facility] (8 sources) penicillAMINE Drug Allergy rash [facility] Other (2 sources) cyclobenzaprine Drug Allergy 03-23-20 16 [facility] Repository (1 source) traMADol Drug Allergy [facility] Repository (1 source) traMADol Drug Allergy [facility] (1 source) cyclobenzaprine Drug Allergy 03-23-20 23 [facility] Repository (1 source) Penicillins Drug allergy (disorder) 03-23-20 23 [facility] Repository Medications Current Medications Medication Drug Class(es) Dates Sig (Normalized) Sig (Original) acetaminophen 325 mg oral tablet (8 sources) Start: 01-16-2020 take 1 tablet by mouth every four hours as needed for pain Tylenol 325 mg Tab 325 mg = 1 tab(s), Oral, q4hr, PRN Pain, Refills(s) 0 Start Date: 01/16/20 Status: Ordered acetaminophen 325 mg / butalbital 50 mg / caffeine 40 mg oral tablet (8 sources) Barbiturate, Central Nervous System Stimulant, Methylxanthine Start: 07-22-2020 take 1 tablet by mouth every twelve hours as needed for headache APAP/butalbital/ caffeine 325 mg-50 mg-40 mg Tab 1 tab(s), Oral, q12hr as needed for headache, Refill(s) 0, as needed Start Date: 07/22/20 Status: Ordered albuterol HFA 90 mcg/inh MDI (8 sources) Start: 01-14-2020 take 2 puff(s) by inhalation every four hours as needed for wheezing albuterol HFA 90 mcg/inh MDI 2 puff(s), Inhalation, q4hr as needed for Shortness of breath or wheezing, Refill(s) 0 Start Date: 01/14/20 Status: Ordered dicyclomine hydrochloride 10 mg oral capsule (20 sources) Anticholinergic Start: 02-15-2023 take 10 mg by mouth four times daily Dicyclomine Active 10 MG PO Four times daily February 15, 2023 12:00am Start: 02-15-2023 End: 03-23-2023 take 10 mg by mouth three times daily Dicyclomine Discontinued 10 MG PO Three times daily February 15, 2023 12:00am March 23, 2023 6:41am Start: 05-05-2021 End: 04-30-2022 take 1 capsule by mouth four times daily Bentyl 10 mg Cap 10 mg = 1 cap(s), Oral, QID, X 30 day(s), # 120 cap(s), Refills(s) 11, Pharmacy: [facility]/pharmacy #[id number], 170, cm, 05/05/21 14:15:00 EDT, Height/Length Dosing, 83.1, kg, 05/05/21 14:15:00 EDT, Weight Dosing Start Date: 05/05/21 Stop Date: 04/30/22 Status: Ordered Start: 09-20-2020 take 2 capsules by m outh four times daily Bentyl 10 mg Cap 20 mg = 2 cap(s), Oral, QID, # 20 cap(s), Refills(s) 0, Pharmacy: [facility]/pharmacy #[id number], 170, cm, 09/20/20 16:03:00 EST, Height/Length Dosing, 87.5, kg, 09/20/20 16:03:00 EST, Weight Dosing Start Date: 09/20/20 Status: Ordered take 1 tablet by ana th at bedtime dicyclomine (BENTYL) 20 mg tablet Take 20 mg by mouth before meals and at bedtime. 0 Active take 1 tablet by ana th every eight hours Dicyclomine HCl 20 MG 1 tablet Orally Three times a day Active Comment on above: Take 20 mg by mouth before meals and at bedtime. famotidine 20 mg oral tablet (9 sources) Histamine-2 Receptor Antagonist Start: 01-28-2022 End: 04-28-2022 take 1 tablet by mouth once daily at bedtime Pepcid 20 mg Tab 20 mg = 1 tab(s), Oral, Once a day (at bedtime), X 90 day(s), # 90 tab(s), Refills(s) 0, Pharmacy: [facility]/pharmacy #[id number], 170, cm, 01/28/22 13:40:00 EDT, Height/Length Dosing, 84.5, kg, 01/28/22 13:40:00 EDT, Weight Dosing Start Date: 01/28/22 Stop Date: 04/28/22 Status: Ordered Start: 02-27-2019 End: 06-21-2019 take 1 tablet by mouth twice daily Famotidine (Pepcid) 20 mg tablet Discontinued 20 MG PO Twice daily 60 30 February 27, 2019 12:00am June 21, 2019 1:42pm Start: 03-28-2018 End: 05-09-2018 take 1 tablet by mouth twice daily Famotidine (Pepcid) 20 mg tablet Discontinued 20 MG PO Twice daily 30 March 28, 2018 12:00am May 09, 2018 12:01am naproxen 500 mg oral tablet (5 sources) Nonsteroidal Anti-inflammatory Drug Start: 03-23-2023 take 500 mg by mouth twice daily Naproxen Active 500 MG PO Twice daily March 23, 2023 12:00am Start: 02-19-2023 take 1 tablet by ana th twice daily as needed for pain Naprosyn 500 mg Tab 500 mg = 1 tab(s), Oral, BID, PRN for pain, # 20 tab(s), Refills(s) 0, Pharmacy: [facility]/pharmacy #[id number], 170, cm, 02/19/23 0:56:00 EDT, Height/Length Dosing, 90.2, kg, 02/19/23 0:56:00 EDT, Weight Dosing Start Date: 02/19/23 Status: Ordered Start: 06-21-2019 End: 02-15-2023 take 1 capsule by mouth twice daily Naproxen Sodium (Aleve) 220 mg Capsule Discontinued 220 MG PO Twice daily June 21, 2019 12:00am February 15, 2023 9:46am omeprazole 40 mg delayed release oral capsule (20 sources) Proton Pump Inhibitor Start: 02-15-2023 take 40 mg by mouth once daily Omeprazole Active 40 MG PO Daily February 15, 2023 12:00am Start: 01-28-2022 End: 10-16-2022 take 1 capsule by mouth once daily omeprazole 40 mg Cap-DR 40 mg = 1 cap(s), Oral, Daily, X 90 day(s), # 90 cap(s), Refills(s) 1, Pharmacy: [facility]/pharmacy #[id number], 170, cm, 04/14/22 14:53:00 EDT, Height/Length Dosing, 87, kg, 04/14/22 14:53:00 EDT, Weight Dosing Start Date: 04/19/22 Stop Date: 10/16/22 Status: Ordered Start: 03-24-2018 End: 04-13-2018 take 20 mg by mouth once daily Omeprazole Discontinued 20 MG PO Daily March 24, 2018 12:00am April 13, 2018 11:33am Comment on above: Take 40 mg by mouth once daily. omeprazole 20 mg Cap-DR (1 source) Start: 2 take 1 capsule by mouth once daily omeprazole 20 mg Cap-DR 20 mg = 1 cap(s), Oral, Daily, # 90 cap(s), Refills(s) 3, Pharmacy: [facility]/pharmacy #[id number], 170, cm, 01/11/22 9:17:00 EDT, Height/Length Dosing, 83, kg, 01/11/22 9:17:00 EDT, Weight Dosing Start Date: 01/11/22 Status: Ordered omeprazole 40 mg Cap-DR (1 source) Start: 2 End: 2 take 1 capsule by mouth once daily omeprazole 40 mg Cap-DR 40 mg = 1 cap(s), Oral, Daily, X 90 day(s), # 90 cap(s), Refills(s) 0, Pharmacy: [facility]/pharmacy #[id number], 170, cm, 01/28/22 13:40:00 EDT, Height/Length Dosing, 84.5, kg, 01/28/22 13:40:00 EDT, Weight Dosing Start Date: 01/28/22 Stop Date: 04/28/22 Status: Ordered OXcarbazepine 300 mg oral tablet (18 sources) Anti-epileptic Agent Start: 3 take 300 mg by mouth once daily at bedtime Oxcarbazepine Active 300 MG PO Daily at bedtime March 23, 2023 12:00am Start: 02-15-2023 take 1 tablet by ana th once daily in the morning, then take 2 tablets by mouth in the evening Oxcarbazepine Active 150 MG PO Every morning February 15, 2023 12:00am take 1 tablet po in am and 2 tablet po in the evening take 1 tablet by ana th twice daily OXcarbazepine (TRILEPTAL) 150 mg tablet Take 150 mg by mouth twice daily. 0 Active Comment on above: Take 150 mg by mouth twice daily. polyethylene glycol 3350 69596 mg powder for oral solution (1 source) Osmotic Laxative Start: 3 Polyethylene Glycol 3350 (Miralax) 17 gram Powder In Packet Active 17 GM PO Daily February 15, 2023 12:00am sucralfate 1000 mg oral tablet (7 sources) Aluminum Complex Start: 3 take 1 tablet by mouth every six hours Sucralfate (Carafate) 1 gram tablet Active 1 GM PO Q6H 56 14 February 15, 2023 12:00am Start: 02-27-2019 End: 06-21-2019 take 1 tablet by mouth at bedtime Sucralfate (Carafate) 1 gram tablet Discontinued 1 GM PO before meals and at bedtime 112 February 27, 2019 12:00am June 21, 2019 1:42pm Start: 04-05-2018 End: 10-07-2018 take 1 tablet by mouth every six hours Sucralfate (Carafate) 1 gram Tablet Discontinued 1 GM PO Q6H April 05, 2018 12:00am October 07, 2018 8:47pm Symbicort 160/4.5 inhalation aerosol with adapter (8 sources) Start: 01-14-2020 take 2 puff(s) by inhalation twice daily Symbicort 160/4.5 inhalation aerosol with adapter 2 puff(s), Inhalation, BID, Asthma Start Date: 01/14/20 Status: Ordered venlafaxine (8 sources) Serotonin and Norepinephrine Reuptake Inhibitor Venlafaxine HCl ER Active Zofran ODT 4 mg Tab-Dis (8 sources) Start: 09-20-2020 take 1 tablet by mouth every six hours as needed for nausea Daisyan ODT 4 mg Tab-Dis 4 mg = 1 tab(s), Oral, q6hr, PRN Nausea/Vomiting, # 12 tab(s), Refills(s) 0, Pharmacy: [facility]/pharmacy #[id number], 170, cm, 09/20/20 16:03:00 EST, Height/Length Dosing, 87.5, kg, 09/20/20 16:03:00 EST, Weight Dosing Start Date: 09/20/20 Status: Ordered Completed/Discontinued Medications Medication Drug Class(es) Dates Sig (Normalized) Sig (Original) acetaminophen 325 mg / HYDROcodone bitartrate 5 mg oral tablet (6 sources) Opioid Agonist Start: 06-21-2019 End: 02-15-2023 take 1 tablet by mouth every six hours Hydrocodone-Acetami nophen ([place]) 5-325 mg Tablet Discontinued 1 TAB PO Q6H June 21, 2019 12:00am February 15, 2023 9:46am Start: 11-12-2018 End: 01-30-2019 take 1 tablet by mouth every four to six hours Hydrocodone-Acetaminophen ([place]) 5-325 mg tablet Discontinued 1 TAB PO EVERY 4-6 HOURS 10 3 November 12, 2018 January 30, 2019 9:43am Albuterol (3 sources) beta2-Adrenergic Agonist Start: 10-07-2018 End: 11-12-2018 Albuterol Sulfate Discontinued 2 INH INHALATION EVERY 4-6 HOURS October 07, 2018 1:00am November 12, 2018 4:42pm administer with spacer Start: 10-07-2018 End: 11-12-2018 Albuterol Sulfate Discontinu ed 2 INH INHALATION EVERY 4-6 HOURS October 07, 2018 12:00am November 12, 2018 3:42pm administer with spacer 120 actuat budesonide 0.16 mg/actuat / formoterol fumarate 0.0045 mg/actuat metered dose inhaler (3 sources) Corticosteroid, beta2-Adrenergic Agonist Start: 11-12-2018 End: 02-25-2019 take 1 puff(s) by inhalation twice daily Budesonide-Formoterol (Symbicort) 160-4.5 mcg/actuation Hfa Aerosol Inhaler Discontinued 2 PUFF INHALATION Twice daily November 12, 2018 1:00am February 25, 2019 6:46pm ciprofloxacin 500 mg oral tablet (12 sources) Quinolone Antimicrobial Start: 01-24-2018 ciprofloxacin HCl (CIPRO) 500 mg tablet dexlansoprazole 60 mg delayed release oral capsule (3 sources) Proton Pump Inhibitor Start: 02-25-2019 End: 06-21-2019 take 60 mg by mouth once daily Dexlansoprazole Discontinued 60 MG PO Daily February 25, 2019 12:00am June 21, 2019 1:42pm doxycycline hyclate 100 mg oral tablet (3 sources) Tetracycline-class Drug Start: 11-12-2018 End: 01-30-2019 take 100 mg by mouth twice daily Doxycycline Hyclate Discontinued 100 MG PO Twice daily 24 06November 12, 2018 1:00am January 30, 2019 9:43am hydroCHLOROthiazide 25 mg / triamterene 37.5 mg oral capsule (11 sources) Potassium-sparing Diuretic, Thiazide Diuretic Start: 01-30-2019 End: 02-15-2023 take 1 tablet by mouth once daily Triamterene-Hydrochlor othiazid Discontinued 1 TAB PO Daily January 30, 2019 12:00am February 15, 2023 9:47am take 1 tablet by ana th every twenty-four hours Triamterene-HCTZ 37.5-25 MG 1 tablet in the morning Orally Once a day for 30 day(s) Active ibuprofen 800 mg oral tablet (3 sources) Nonsteroidal Anti-inflammatory Drug Start: 02-09-2019 End: 02-27-2019 take 800 mg by mouth three times daily Ibuprofen Discontinued 800 MG PO Three times daily February 09, 2019 12:00am February 27, 2019 3:49pm lidocaine hydrochloride 20 mg/ml mucous membrane topical solution (12 sources) Antiarrhythmic, Amide Local Anesthetic Start: 04-24-2018 LIDOCAINE VISCOUS 2 % solution losartan potassium 100 mg oral tablet (3 sources) Angiotensin 2 Receptor Serena Start: 11-12-2018 End: 02-15-2023 take 100 mg by mouth once daily Losartan Discontinued 100 MG PO Daily November 12, 2018 1:00am February 15, 2023 9:46am meclizine hydrochloride 25 mg oral tablet (3 sources) Antiemetic Start: 10-07-2018 End: 11-12-2018 take 25 mg by mouth three times daily Meclizine Discontinued 25 MG PO Three times daily October 07, 2018 1:00am November 12, 2018 4:42pm meloxicam 15 mg oral tablet (3 sources) Nonsteroidal Anti-inflammatory Drug Start: 01-30-2019 End: 02-25-2019 take 15 mg by mouth once daily Meloxicam Discontinued 15 MG PO Daily January 30, 2019 12:00am February 25, 2019 6:46pm metoclopramide 10 mg oral tablet (20 sources) Dopamine-2 Receptor Antagonist Start: 04-13-2018 metoclopramide HCl (REGLAN) 10 mg tablet Start: 04-13-2018 take 1 tablet by ana th four times daily Reglan 10 mg Tab 10 mg = 1 tab(s), Oral, QID, # 120 tab(s), Refills(s) 0, Pharmacy: [facility]/pharmacy #[id number], 170, cm, 07/22/22 14:33:00 EST, Height/Length Dosing, 86.6, kg, 07/22/22 14:33:00 EST, Weight Dosing Start Date: 07/22/22 Status: Ordered Start: 04-13-2018 Reglan 10 MG 1 tablet daily as needed Orally once a day for 30 days Apr, Active Start: 04-13-2018 take 1 tablet by ana th every six hours Metoclopramide Hcl (Reglan) 10 mg Tablet Active 10 MG PO Q6H March 23, 2023 12:00am metroNIDAZOLE 500 mg oral tablet (12 sources) Nitroimidazole Antimicrobial Start: 01-24-2018 metroNIDAZOLE (FLAGYL) 500 mg tablet nitrofurantoin, macrocrystals 25 mg / nitrofurantoin, monohydrate 75 mg oral capsule (3 sources) Nitrofuran Antibacterial Start: 06-21-2019 End: 02-15-2023 take 1 capsule by mouth twice daily at mealtime Nitrofurantoin Monohyd/M-Cryst (Macrobid) 100 mg capsule Discontinued 100 MG PO Twice daily 14 June 21, 2019 12:00am February 15, 2023 9:46am must administer with a meal/food ondansetron 4 mg disintegrating oral tablet (17 sources) Serotonin-3 Receptor Antagonist Start: 02-15-2023 End: 03-23-2023 take 4 mg by mouth once daily Ondansetron Discontinued 4 MG PO Daily February 15, 2023 12:00am March 23, 2023 6:41am Start: 05-10-2019 take 1 tablet by ana th every eight hours Zofran 4 mg Tab 4 mg = 1 tab(s), Oral, q8hr, # 20 tab(s), Refills(s) 1 Start Date: 05/10/19 Status: Ordered take 1 tablet by ana th every eight hours as needed ondansetron (ZOFRAN) 8 mg tablet Take 8 mg by mouth every 8 hours as needed for nausea/vomiting. 0 Active Comment on above: Take 8 mg by mouth e very 8 hours as needed for nausea/vomiting. pantoprazole 40 mg delayed release oral tablet (20 sources) Proton Pump Inhibitor Start: 04-13-2018 End: 02-25-[address] (PROTONIX) 40 mg tablet Start: 04-05-2018 End: 04-13-2018 take 1 tablet by mouth once daily Pantoprazole (Protonix) 40 mg tablet,delayed release (DR/EC) Active 40 MG PO Daily 14 February 15, 2023 12:00am predniSONE 20 mg oral tablet (3 sources) Start: 10-07-2018 End: 11-12-2018 take 40 mg by mouth once daily in the morning Prednisone Discontinued 40 MG PO Every morning 10 October 07, 2018 1:00am November 12, 2018 4:42pm administer with food or milk promethazine hydrochloride 25 mg oral tablet (18 sources) Phenothiazine Start: 03-24-2018 End: 02-15-2023 promethazine (PHENERGAN) 25 mg tablet traMADol hydrochloride 50 mg oral tablet (3 sources) Opioid Agonist Start: 02-27-2019 End: 06-21-2019 take 50 mg by mouth every four to six hours Tramadol Discontinued 50 MG PO EVERY 4-6 HOURS 24 03February 27, 2019 12:00am June 21, 2019 1:45pm Problems Active Problems Problem Classification Problem Date Documented Da te Episodic/Chronic Abdominal pain (20 sources) Epigastric pain; Translations: [Epigastric pain] Onset: 01-28-2022 05-26-2021 Episodic Adjustment disorders (1 source) Adjustment disorder with mixed anxiety and depressed mood; Translations: [Adjustment disorder with mixed anxiety and depressed mood] Onset: 07-13-2023 Chronic Administrative/social admission (1 source) Patient encounter status; Translations: [Dietary counseling and surveillance] 07-22-2023 Episodic Asthma (8 sources) Reactive airway disease; Translations: [Unspecified asthma, uncomplicated] Chronic Biliary tract disease (8 sources) Gallstone 01-08-2020 Episodic Calculus of urinary tract (8 sources) Kidney stone 05-10-2019 Episodic Coagulation and hemorrhagic disorders (2 sources) Von Willebrand's disease; Translations: [VON WILLEBRAND DISEASE] Onset: 02-04-2022 Chronic Epilepsy; convulsions (8 sources) Seizure 07-10-2020 Episodic Esophageal disorders (20 sources) Pearce's esophagus; Translations: [Pearce's esophagus without dysplasia] Onset: 01-11-2022 Chronic Essential hypertension (9 sources) Hypertensive disorder; Translations: [Essential (primary) hypertension] Onset: 11-30-2022 01-22-2020 Chronic Fluid and electrolyte disorders (3 sources) Dehydration; Translations: [Hypokalemia] Onset: 04-07-2022 Episodic Genitourinary symptoms and ill-defined conditions (20 sources) History of urinary tract infection; Translations: [Proteinuria] Onset: 11-30-2022 02-24-2021 Episodic Headache; including migraine (9 sources) Migraine; Translations: [Migraine, unspecified, not intractable, without status migrainosus] Onset: 04-07-2022 05-10-2019 Chronic Heart valve disorders (9 sources) Mitral valve prolapse; Translations: [Nonrheumatic mitral (valve) prolapse] Onset: 11-04-2022 09-08-2019 Chronic Miscellaneous mental health disorders (1 source) Psychological and behavioral factors associated with disorders or diseases classified elsewhere; Translations: [Psychological factors affecting medical condition] Onset: 07-13-2023 Chronic Noninfectious gastroenteritis (2 sources) Noninfective gastroenteritis and colitis, unspecified; Translations: [NONINFECTIVE GE AND COLITIS UNS] Onset: 06-08-2022 Episodic Nutritional deficiencies (1 source) Malnutrition (calorie); Translations: [Moderate protein-calorie malnutrition] 07-22-2023 Chronic Osteoarthritis (8 sources) Arthritis 05-10-2019 Chronic Other aftercare (1 source) Other retirement (current) drug therapy; Translations: [OTH HALF-WAY CURRENT DRUG THERAPY] Onset: 11-30-2022 Episodic Other diseases of bladder and urethra (8 sources) Traumatic urethral stricture 02-24-2021 Episodic Other disorders of stomach and duodenum (15 sources) Gastroparesis syndrome; Translations: [Gastroparesis] Onset: 04-14-2022 05-26-2021 Episodic Other disorders of stomach and duodenum (2 sources) Gastroparesis; Translations: [Gastroparesis] Onset: 03-26-2023 Episodic Other gastrointestinal disorders (8 sources) Diarrhea 05-26-2021 Episodic Other gastrointestinal disorders (9 sources) Heartburn; Translations: [Heartburn] Onset: 04-14-2022 07-10-2020 Episodic Other gastrointestinal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 hours as needed for nausea/vomiting. ciprofloxacin HCl (CIPRO) 500 mg tablet LIDOCAINE VISCOUS 2 % solution metoclopramide HCl (REGLAN) 10 mg tablet metroNIDAZOLE (FLAGYL) [address] (PROTONIX) 40 mg tablet promethazine (PHENERGAN) 25 mg tablet No current facility-administered medications for this visit. REVIEW OF SYSTEMS: [facility] [place] PULP: Negative for CVA, Negative for TIA Respiratory: Negative for smoking, dyspnea, cough, asthma, bronchitis, emphysema Cardiovascular: Negative for chest pain, leg swelling or palpitations. GI: See HPI : No history of dysuria, frequency and incontinence Endocrine: Negative for cold or heat intolerance, polyuria, polydipsia and goiter. Hematology Negative for prolonged bleeding, bruising easily, and swollen nodes. SIGNATURE: Rúal Quintero MD PATIENT NAME: Constantino Cardoso DATE: July 14, 2023 TIME: 8:17 AM EVALUATION DATE: 07/14/2023 EVALUATION TIME: 8:17 AM PHYSICAL EXAM: No data found. General Appearance: well appearing, alert, in no acute distress Oropharynx: teeth normal, oropharynx normal Neck: Full range of motion, Supple Lungs: Lungs clear to auscultation. No wheezing, rhonchi, rales. Heart: RRR without murmur, gallop, or rubs. No ectopy Abdomen: abdomen soft, obese, mild diffuse abdominal pain to palpation Extremities: No clubbing, cyanosis, or edema. IMPRESSION: 52 year old year old female with PMH of mitral valve prolapse, GERD,migraines s/p RYGB 2018 , hiatal hernia repair 2019 reuiring EGD balloon dilatation with gastroparesis PLAN OF TREATMENT: Esophagogastroduodenoscopy (EGD) SIGNATURE: Raúl Quintero MD PATIENT NAME: Constantino Cardoso DATE: July 14, 2023 TIME: 9:40 AM [facility] NURSING PROGon 07-14-2023 NURSING PROG HNO ID: [id number] Author: Mónica Spaulding RN Service: Nursing Author Type: Registered Nurse Type: Nursing Progress Note Filed: 07/14/2023 11:21 AM Note Text: 1121: Dr. Mehrdad Carter paged : Patient Constantino Cardoso in post bed 10: Complaining of 10/10 abdominal pain (gas), mild nausea. Any further orders? Thanks! Mari Spaulding RN BSN [facility] NURSING PROG HNO ID: [id number] Author: Mónica Spaulding RN Service: Nursing Author Type: Registered Nurse Type: Nursing Progress Note Filed: 07/14/2023 11:19 AM Note Text: AMBULATORY PATIENT EDUCATION NOTE TOPIC: GI PROCEDURES: Esophagogastroduodenoscopy (EGD) with or without biopies based on clinical findings, removal of polyps or lesions, for control of bleeding, dilation (any means), imaging, tube placement READINESS TO LEARN INSTRUCTION PROVIDED TO: Patient, readness to learn accessed prior to procedure and Family member COGNITIVE ABILITY: Alert and oriented PTED MOTIVATION TO LEARN: Interested FAMILY SUPPORT: High - Very involved in pt care IPATIENT LEARNS BEST BY: Individual Instruction Written Instruction - Hand-outs Verbal Instruction FACTORS AFFECTING LEARNING: None PHYSICAL LIMITATIONS AFFECTING LEARNING: None LEARNING RESPONSE METHOD OF INSTRUCTION: Individual instruction PATIENT / FAMILY RESPONSE: Verbalizes understanding of: WORSENING CONDITION-Signs and symptoms of a worsening condition that warrant a call to the physician FOLLOW-UP PLAN: Patient instructed to call with any further issues Recommend - Recommend continued instruction and follow up as directed Contact information given. SUPPLEMENTAL MATERIAL: Procedure Discharge Instructions REFERRAL (RECOMMENDATION): None Electronically Signed By: Mónica Spaulding RN BSN [facility] NURSING PROG HNO ID: [id number] Author: Candace Jaramillo RN Service: ? Author Type: Registered Nurse Type: Nursing Progress Note Filed: 07/14/2023 8:34 AM Note Text: PRE OP LEARNING ASSESSMENT PROCEDURE/SURGERY: GI PROCEDURES: EGD and ESU READINESS TO LEARN COGNITIVE ABILITY: Alert and oriented MOTIVATION TO LEARN: Eager Interested FAMILY SUPPORT: High - Very involved in pt care PATIENT LEARNS BEST BY: Individual Instruction Written Instruction - Hand-outs Verbal Instruction FACTORS AFFECTING LEARNING: None PHYSICAL LIMITATIONS AFFECTING LEARNING: None Electronically Signed By: Candace Jaramillo RN In Department: GASTROENTEROLOGY [facility] SURGICAL PATHOLOGYon 023 ADDENDUM 1: [facility] Comment on above: Order Comment: Speci men Type: TISSUE SPECIMENOrdering Facility: [facility] Address: [address] [place] [address] Result Comment: Give n the background of chronic gastritis a Helicobacter pylori immunostain was performed on block A and is negative for Helicobacter pylori organisms. AEB 07/20/2023 Laboratory Developed Test (LDT) Disclaimer: Performance characteristics of immunohistochemical, immunofluorescent and chromogenic in-situ hybridization tests have been determined by the performing laboratory within [facility]???s [facility] [place] ([facility], [facility], [facility], [facility], [facility], [facility], or [facility]) in a manner consistent with CLIA requirements. One or more of these tests have not been cleared or approved by the FDA. [facility] is regulated under CLIA as qualified to perform high-complexity testing. These tests are used for clinical purposes. They should not be regarded as investigational or for research. Positive and negative controls stain appropriately. Addendum electronically signed by Marilou Zacarias MD on 07/20/2023 at 9:30 AM Performed By: #### S ####[facility] LABCLIA [id number] [place] [address] [place] CASE REPORT [facility] Comment on above: Order Comment: Speci men Type: TISSUE SPECIMENOrdering Facility: [facility] Address: [address] [place] [address] Result Comment: [facility] Pathology Report Case: [id number] Authorizing Provider: Marques Bradley MD Collected: 07/14/2023 10:42 AM Ordering Location: Gastroenterology Received: 07/14/2023 07:34 PM Pathologist: Marilou Zacarias MD Specimen: STOMACH BIOPSY, R/O H.Pylori Performed By: #### S ####[facility] LABCLIA [id number] [address] [place] DIAGNOSIS COMMENT Immunohistochemical stain for Helicobacter pylori is pending and will be reported as an addendum. [facility] Comment on above: Order Comment: Speci men Type: TISSUE SPECIMENOrdering Facility: [facility] Address: [address] [place] [address] Performed By: #### S ####[facility] LABCLIA [id number] [address] [place] FINAL DIAGNOSIS [facility] Comment on above: Order Comment: Speci men Type: TISSUE SPECIMENOrdering Facility: [facility] Address: [address] [place] [address] Result Comment: Velma scott, biopsy: - Chronic inactive gastritis. See comment. AEB/dkclementina 07/18/2023 Performed By: #### S ####[facility] LABCLIA [id number] [address] [place] FINAL PERFORMING LAB [facility] Comment on above: Order Comment: Speci men Type: TISSUE SPECIMENOrdering Facility: [facility] Address: [address] [place] [address] Result Comment: Diag nostic interpretation performed at [facility], [facility] [place] [address] CLIA# [id number] Saw Man: Maurisio Ritchie M.D. Performed By: #### S ####[facility] LABCLIA [id number] [place] [address] [place] GROSS DESCRIPTION [facility] Comment on above: Order Comment: Speci men Type: TISSUE SPECIMENOrdering Facility: [facility] Address: [address] [place] [address] Result Comment: A. S TOMACH BIOPSY Received in formalin are two pieces of hager, soft tissue aggregating to 0.5 x 0.2 x 0.2 cm. Totally submitted in one cassette. Two Gross examination performed at [facility], [address] [place] [address] July 14, 2023 11:10 PM Performed By: #### S ####[facility] LABIA [id number] [address] [place] Lipase Levelon 06-06-2023 Lipase [Catalytic activity/Vol] 33 U/L Normal 13-58 [facility] Comment on above: Performed By: #### 2 [id number] ####[facility] [address] [place] [address] [facility] 05-27-2023 CNPN Telephone (GENBMI) CONSTANTINO CARDOSO ([id number]) 1970 F Date Time Provider Department 05/27/23 EVELYN BLACK During your visit today, we recorded the following information about you: Evelyn Black, RN 05/27/2023 9:45 AM Signed BMI SPECIALTY CARE COORDINATION TELEPHONE ENCOUNTER Pt contacted today regarding testing ordered when she had a consult with Dr Bradley. Manometry was normal and her GES was severely delayed. Reviewed results and will discuss with if POP is the next plan of care. Will update pt. Pt agreed with plan. Allergies As of Date: 05/27/2023 Noted Allergy Reaction FLEXERIL (CYCLOBENZAPRINE) 04/28/2018 7 - Swelling PENICILLIN 04/28/2018 7 - Swelling Date Reviewed: 05/06/2023 Reviewed by: Judy Michaels MA - Fully Assessed Reason for Visit: Results [95] Prescriptions as of 05/27/2023 - dicyclomine (BENTYL) 20 mg tablet Take 20 mg by mouth before meals and at bedtime. - OXcarbazepine (TRILEPTAL) 150 mg tablet Take 150 mg by mouth twice daily. - omeprazole (PRILOSEC) 40 mg capsule Take 40 mg by mouth once daily. - ondansetron (ZOFRAN) 8 mg tablet Take 8 mg by mouth every 8 hours as needed for nausea/vomiting. - ciprofloxacin HCl (CIPRO) 500 mg tablet - LIDOCAINE VISCOUS 2 % solution - metoclopramide HCl (REGLAN) 10 mg tablet - metroNIDAZOLE (FLAGYL) 500 mg tablet - pantoprazole DR (PROTONIX) 40 mg tablet - promethazine (PHENERGAN) 25 mg tablet Problem List As Of Date 05/27/2023 Noted Resolved Hiatal hernia [K44.9] 04/28/2018 Morbid obesity (HCC) [E66.01] 04/28/2018 Encounter Status:Closed by EVELYN BLACK on 05/27/23 [facility] GASTRIC EMPTYING SOLIDon 05-26-2023 NM GASTRIC EMPTYING SOLID * * *Final Report* * * DATE OF EXAM: May 26 2023 11:11AM N 0017 - [place] GASTRIC EMPTYING SOLID / PROCEDURE REASON: Nausea * * * * Physician Interpretation * * * * SOLID MEAL GASTRIC EMPTYING STUDY: CLINICAL HISTORY: Early satiety. Nausea. To assess for abnormal gastric emptying of a solid meal. TECHNIQUE: 1.1 mCi Tc-99m sulfur colloid was given orally in a meal consisting of 4 oz Egg Beaters, 1 piece(s) toast, 30g strawberry jam, and 8 oz water, consumed over 5 to 10 minutes. FINDINGS: Solid study demonstrates 93% retention at 1hr, 87% retention at 2hr, and 52% retention at 4hr (normal emptying is 37-90% retention at 1hr, 30-60% retention at 2hr, and 0-10% retention at 4hr). There is no accelerated emptying of gastric contents, with 93% retention at 1hr (rapid emptying is <30% retention at 1hr). IMPRESSION: SEVERELY DELAYED RATE OF GASTRIC EMPTYING OF SOLID MEAL. Director Of Publications: [employer] Transcribe Date/Time: May 26 2023 11:18A Dictated by : SILVANO WELSH MD This examination was interpreted and the report reviewed and electronically signed by: SILVANO WELSH MD on May 26 2023 11:18AM EST [id number] [facility] CNNURSEon 05-25-2023 CNNURSE Nurse Visit (GASTMN) CONSTANTINO CARDOSO ([id number]) 1970 F Date Time Provider Department 05/25/23 8:30 AM NURSE GI LAB 2 GASTMN During your visit today, we recorded the following information about you: Pedro Gonzalez LPN 05/25/2023 4:15 PM Signed Name: Constantino Cardoso CC#: [id number] Date: 05/25/2023 ESOPHAGEAL MANOMETRY TEST Indication: Nausea Pain Assessment: No pain is present. The patient has been NPO since last evening. A local anesthetic 1.5 cc 2% Viscous Lidocaine was instilled into the left nares. The patient was intubated the left nares using a 36 sensor high resolution circumferential solid state manometry catheter The esophageal manometry test was completed. The patient tolerated the test without difficulty. .Pedro Gonzalez LPN Referring Provider: MARQUES BRADLEY [[id number]] Allergies As of Date: 05/25/2023 Noted Allergy Reaction FLEXERIL (CYCLOBENZAPRINE) 04/28/2018 7 - Swelling PENICILLIN 04/28/2018 7 - Swelling Date Reviewed: 05/06/2023 Reviewed by: Judy Michaels MA - Fully Assessed Reason for Visit: Procedure [88] Cmt: Manometry Esophageal Visit Diagnosis:Nausea [R11.0] Order(s):MANOMETRY ESOPHAGEAL [39702RGT] Order #: [id number] Prescriptions as of 05/25/2023 - dicyclomine (BENTYL) 20 mg tablet Take 20 mg by mouth before meals and at bedtime. - OXcarbazepine (TRILEPTAL) 150 mg tablet Take 150 mg by mouth twice daily. - omeprazole (PRILOSEC) 40 mg capsule Take 40 mg by mouth once daily. - ondansetron (ZOFRAN) 8 mg tablet Take 8 mg by mouth every 8 hours as needed for nausea/vomiting. - ciprofloxacin HCl (CIPRO) 500 mg tablet - LIDOCAINE VISCOUS 2 % solution - metoclopramide HCl (REGLAN) 10 mg tablet - metroNIDAZOLE (FLAGYL) 500 mg tablet - pantoprazole DR (PROTONIX) 40 mg tablet - promethazine (PHENERGAN) 25 mg tablet Problem List As Of Date 05/25/2023 Noted Resolved Hiatal hernia [K44.9] 04/28/2018 Morbid obesity (HCC) [E66.01] 04/28/2018 Encounter Status:Closed by PEDRO GONZALEZ [facility]/23 [facility] CONSTANT[facility] ([id number]) 1970 F Date Time Provider Department 05/16/23 EVELYN BLACK During your visit today, we recorded the following information about you: Evelyn Black, RN 05/16/2023 12:10 PM Signed BMI SPECIALTY CARE COORDINATION TELEPHONE ENCOUNTER Pt. was seen in clinic and was ordered a manometry for dysphagia and also a GES. Pt s/p RYGB 2018 and had a HHR in 2019. C/O bloating, and abdominal pain with or without food. Also has some c/o reflux. Appts made and scheduled for pt. Instructions reviewed along with medications to hold if needed prior to testing. Pt was sent MY CHART sign up to mobile phone as well. Pt verbalized understanding and will contact the office with further questions. Will discuss with team if GES still indicated after a gastric bypass. Allergies As of Date: 05/16/2023 Noted Allergy Reaction FLEXERIL (CYCLOBENZAPRINE) 04/28/2018 7 - Swelling PENICILLIN 04/28/2018 7 - Swelling Date Reviewed: 05/06/2023 Reviewed by: Judy Michaels MA - Fully Assessed Prescriptions as of 05/16/2023 - dicyclomine (BENTYL) 20 mg tablet Take 20 mg by mouth before meals and at bedtime. - OXcarbazepine (TRILEPTAL) 150 mg tablet Take 150 mg by mouth twice daily. - omeprazole (PRILOSEC) 40 mg capsule Take 40 mg by mouth once daily. - ondansetron (ZOFRAN) 8 mg tablet Take 8 mg by mouth every 8 hours as needed for nausea/vomiting. - ciprofloxacin HCl (CIPRO) 500 mg tablet - LIDOCAINE VISCOUS 2 % solution - metoclopramide HCl (REGLAN) 10 mg tablet - metroNIDAZOLE (FLAGYL) 500 mg tablet - pantoprazole DR (PROTONIX) 40 mg tablet - promethazine (PHENERGAN) 25 mg tablet Problem List As Of Date 05/16/2023 Noted Resolved Hiatal hernia [K44.9] 04/28/2018 Morbid obesity (HCC) [E66.01] 04/28/2018 Encounter Status:Closed by EVELYN BLACK on 05/16/23 [facility] 05-06-2023 CNOV Office Visit (GENBMI ) CONSTANTINO CARDOSO ([id number]) 1970 F Date Time Provider Department 05/06/23 8:50 AM MARQUES BRADLEY During your visit today, we recorded the following information about you: Pulse Blood pressure Weight Height 83/minute 138/93 88.3 kg 1.649 m Marques Bradley MD 05/12/2023 8:15 AM Signed Consultation requested by Dr. Martinez for an opinion regarding GP. My final recommendations will be communicated back to the requesting physician by way of shared Medical record or letter to requesting physician via US mail. Gastroparesis Cardinal Symptom Index 1. nausea 3 2. retching 4 3. vomiting 3 4. stomach fullness 4 5. not able to finish a normal-sized meal 5 6. feeling excessively full after meals 5 7. loss of appetite 5 8. bloating (feeling like you need to loosen your clothes) 4 9. stomach or belly visibly large 5 Scale (0-none; 1-very mild; 2-mild; 3-moderate; 4-severe; 5-very severe) Section of Advanced Laparoscopic Surgery, Bariatric Surgery, and Surgical Endoscopy Consultation May 06, 2023 Constantino Cardoso 52 year old This consult was requested by Guillermo Carbajal and my final recommendations will be communicated to the requesting health care provider by way of the shared medical record for internal providers or letter via the [employer] for external providers. Chief Complaint: dysphagia History of Present Illness: Constantino Cardoso is a 52 year old year old female with PMH of mitral valve prolapse, GERD,migraines s/p RYGB 2018 , hiatal hernia repair 2019 reuiring EGD balloon dilatation, presented with the complain of dysphagia, feeling bloated PAST MEDICAL HISTORY Diagnosis Date Migraine Mitral valve prolapse PAST SURGICAL HISTORY Procedure Laterality Date CHOLECYSTECTOMY HYSTERECTOMY Current Outpatient Medications Medication Sig Dispense Refill dicyclomine (BENTYL) 20 mg tablet Take 20 mg by mouth before meals and at bedtime. OXcarbazepine (TRILEPTAL) 150 mg tablet Take 150 mg by mouth twice daily. omeprazole (PRILOSEC) 40 mg capsule Take 40 mg by mouth once daily. ondansetron (ZOFRAN) 8 mg tablet Take 8 mg by mouth every 8 hours as needed for nausea/vomiting. ciprofloxacin HCl (CIPRO) 500 mg tablet LIDOCAINE VISCOUS 2 % solution metoclopramide HCl (REGLAN) 10 mg tablet metroNIDAZOLE (FLAGYL) [address] (PROTONIX) 40 mg tablet promethazine (PHENERGAN) 25 mg tablet No current facility-administered medications for this visit. ALLERGIES Allergen Reactions Flexeril [Cyclobenz* Swelling Penicillin Swelling No family history on file. Social History Tobacco Use Smoking status: Former Years: 25 Types: Cigarettes Quit date: 2011 Years since quittin.6 Smokeless tobacco: Never Tobacco comments: still smokes Substance Use Topics Alcohol use: Yes Comment: social Review of Systems: GENERAL: No weight loss, malaise or fevers RESPIRATORY: Negative for cough, hemoptysis, wheezing, COPD, dyspnea or shortness of breath CARDIOVASCULAR: Negative for chest pain, leg swelling, hypertension, CHF or palpitations GI: No nausea, vomiting, or diarrhea and Positive for nausea dysphagia : No history of dysuria, frequency or incontinence MUSCULOSKELETAL: Negative for joint pain or swelling, back pain or muscle pain Physical Exam: BP 138/93 Pulse 83 Ht 164.9 cm (5' 4.93 ) Wt 88.3 kg (194 lb 11.2 oz) LMP 02/26/1997 BMI 32.47 kg/m? General Appearance: Well appearing, alert, in no acute distress, well-hydrated, well nourished. Psych: ORIENTATION: normal to time place, person and situation AFFECT AND MOOD: Normal Lungs: Lungs clear to auscultation. No wheezing, rhonchi, rales. Extremities: No deformities, edema, skin discoloration, clubbing or cyanosis. Good capillary refill. Musculoskeletal: no weakness, no balance deficits, no coordination deficitsGAIT: Normal ASSIST DEVICE: None Abdomen: Normal abdominal exam, Abdomen soft, non-tender. All outside imaging and records were reviewed with the patient during consultation. Assessment Assessment and Plan: Constantino Cardoso is a 52 year old year old female with PMH of mitral valve prolapse, GERD,migraines s/p RYGB 2018 , hiatal hernia repair 2019 reuiring EGD balloon dilatation, presented with the complain of dysphagia, feeling bloated with the concern of gastroparesis - Manometry study - Gastric emptying study Attending Note I evaluated the patient and personally participated in the cottrell components. I agree with the resident's findings and plan as documented and have discussed the case and management of the patient's care with the resident. Signature: Marques Bradley MD Date: 05/12/2023 Time: 8:15 AM Referring Provider: IMER CHERRY [[id number]] Allergies As of Date: 05/06/2023 Noted Allergy Reaction (more content not included)... [facility] CNPNon 05-02-2023 CNPN Telephone (GENBMI) CONSTANTINO CARDOSO ([id number]) 1970 F Date Time Provider Department 05/02/23 EVELYN BLACK GENBMI During your visit today, we recorded the following information about you: Evelyn Black, RN 05/04/2023 1:55 PM Addendum BMI SPECIALTY CARE COORDINATION TELEPHONE ENCOUNTER Chief complaint AND duration dysphagia. Type of procedure: hernia repair hiatal with Dr. MORTENSEN in [place] February of 2019. Sending OP notes Nursing assessment (subjective/objective) . pain in chest area and getting worse, hard to breathe c/o nausea and oral intolerance, using miralax for BM Went to [facility] March 2023 who told her she needed a stent in her heart..but her c/o were difficulty swallowing and sent pt home and referred her to [facility] and was admitted for almost a week March 29 EGD March 30 with balloon dilation it has lasted about a month and symptoms starting again. GES 02/2022- have report but pt states she possible had another with the March admission. breath test pt unsure if this test is what she had h/o bowel obstructions that started after HHR and no surgery indicated for bowel obstructions last episode was December 2022 Last weight 198 pounds [address] Fab ely in 2018 where a RYGB with HHR was recommended. Pt never returned and had HHR a year later @ OSH in [place] Recommendation: appt after records obtained, encouraged small meals Allergies As of Date: 05/02/2023 Noted Allergy Reaction FLEXERIL (CYCLOBENZAPRINE) 04/28/2018 7 - Swelling PENICILLIN 04/28/2018 7 - Swelling Date Reviewed: 04/28/2018 Reviewed by: Estela Bird Ma - Fully Assessed Prescriptions as of 05/04/2023 - ciprofloxacin HCl (CIPRO) 500 mg tablet - LIDOCAINE VISCOUS 2 % solution - metoclopramide HCl (REGLAN) 10 mg tablet - metroNIDAZOLE (FLAGYL) 500 mg tablet - pantoprazole DR (PROTONIX) 40 mg tablet - promethazine (PHENERGAN) 25 mg tablet Problem List As Of Date 05/02/2023 Noted Resolved Hiatal hernia [K44.9] 04/28/2018 Morbid obesity (HCC) [E66.01] 04/28/2018 Encounter Status:Closed by EVELYN BLACK on 05/02/23 [facility] 04-26-2023 CNPN Telephone (GENBMI) CONSTANTINO CARDOSO ([id number]) 1970 F Date Time Provider Department 04/26/23 EVELYN BLACK GENBMI During your visit today, we recorded the following information about you: Evelyn Black, RN 04/26/2023 2:01 PM Signed BMI SPECIALTY CARE COORDINATION TELEPHONE ENCOUNTER Second attempt to contact this pt. Pt has upcoming information, and unable to complete any chart prep, history, symptoms, testing etc. LVM and call back number. Allergies As of Date: 04/26/2023 Noted Allergy Reaction FLEXERIL (CYCLOBENZAPRINE) 04/28/2018 7 - Swelling PENICILLIN 04/28/2018 7 - Swelling Date Reviewed: 04/28/2018 Reviewed by: Estela Bird Ma - Fully Assessed Prescriptions as of 04/26/2023 - ciprofloxacin HCl (CIPRO) 500 mg tablet - LIDOCAINE VISCOUS 2 % solution - metoclopramide HCl (REGLAN) 10 mg tablet - metroNIDAZOLE (FLAGYL) 500 mg tablet - pantoprazole DR (PROTONIX) 40 mg tablet - promethazine (PHENERGAN) 25 mg tablet Problem List As Of Date 04/26/2023 Noted Resolved Hiatal hernia [K44.9] 04/28/2018 Morbid obesity (HCC) [E66.01] 04/28/2018 Encounter Status:Closed by EVELYN BLACK on 04/26/23 [facility] 04-18-2023 CNPN Telephone (GENBMI) CONSTANTINO CARDOSO ([id number]) 1970 F Date Time Provider Department 04/18/23 EVELYN BLACK GENI During your visit today, we recorded the following information about you: Evelyn Black, RN 04/18/2023 2:17 PM Signed BMI SPECIALTY CARE COORDINATION TELEPHONE ENCOUNTER Contacted pt regarding a referral from Dr Martinez's office. [facility] and call back number. 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 - Other [3602] Prescriptions as of 04/18/2023 - ciprofloxacin HCl (CIPRO) 500 mg tablet - LIDOCAINE VISCOUS 2 % solution - metoclopramide HCl (REGLAN) 10 mg tablet - metroNIDAZOLE (FLAGYL) 500 mg tablet - pantoprazole DR (PROTONIX) 40 mg tablet - promethazine (PHENERGAN) 25 mg tablet Problem List As Of Date 04/18/2023 Noted Resolved Hiatal hernia [K44.9] 04/28/2018 Morbid obesity (HCC) [E66.01] 04/28/2018 Encounter Status:Closed by EVELYN BLACK on 04/18/23 [facility] 04-07-2023 CNPN Telephone (GASTSP) CONSTANTINO CARDOSO ([id number]) 1970 F Date Time Provider Department 04/07/23 GUILLERMO MARTINEZ [facility] During your visit today, we recorded the following information about you: Yancy Lopez 04/07/2023 1:16 PM Signed Referral Jett Calles 04/11/2023 1:01 PM Signed Records are in scanned documents ready for review. Guillermo Martinez, 04/13/2023 10:02 AM Signed Post surgical needs to be seen by Jett Moore 04/13/2023 10:45 AM Signed Forward to Dr. Bradley and his team to review per Dr. Martinez Allergies As of Date: 04/07/2023 Noted Allergy Reaction FLEXERIL (CYCLOBENZAPRINE) 04/28/2018 7 - Swelling PENICILLIN 04/28/2018 7 - Swelling Date Reviewed: 04/28/2018 Reviewed by: Estela Bird Ma - Fully Assessed Reason for Visit: Appointment [[id number]] Prescriptions as of 04/18/2023 - ciprofloxacin HCl (CIPRO) 500 mg tablet - LIDOCAINE VISCOUS 2 % solution - metoclopramide HCl (REGLAN) 10 mg tablet - metroNIDAZOLE (FLAGYL) 500 mg tablet - pantoprazole DR (PROTONIX) 40 mg tablet - promethazine (PHENERGAN) 25 mg tablet Problem List As Of Date 04/07/2023 Noted Resolved Hiatal hernia [K44.9] 04/28/2018 Morbid obesity (HCC) [E66.01] 04/28/2018 Encounter Status:Closed by YANCY LOPEZ on 04/07/23 [facility] NM gastric emptying study 03-31-2023 NM gastric emptying study [address] [place] [address] Nuclear Medicine Report Signed Patient: Constantino Cardoso MR#: [id number] : 1970 Acct:[id number] Age/Sex: 52 / F ADM Date: 03/26/23 Loc: Room: [address] [place] [address] Type: ADM IN Attending Dr: Deann Motnalvo MD Copies to: MD Deann Blue MD Ward, Jeffrey S DO Ordering Provider: Renny Gan MD Date of Service: 03/31/23 NM/NM gastric emptying study: *DOSE ORDERD* Nausea and vomiting Nuclear medicine gastric emptying study HISTORY: Nausea and vomiting for 10 days. COMPARISON: None The one half time of emptying of the stomach is 194 minutes. NM/NM gastric emptying study IMPRESSION: Delayed gastric emptying. Impression dictated by: Samuel Stone M.D.03/31/2023 10:03 AM Dictation Location: [place] [address] Transcribed By: [facility] 03/31/23 1003 Dictated By: Samuel Stone DO 03/31/23 0956 Signed By: 03/31/23 1003 [facility] Comprehensive Metabolic Pane miranda 03-29-2023 Albumin [Mass/Vol] 3.8 g/dL Normal 3.5-5.7 [facility] Comment on above: Performed By: #### C STELLA, CMP #### [facility] [address] [place] [address] Albumin/Globulin [Mass ratio] 1.4 {ratio} Normal [facility] Comment on above: Performed By: #### C BCTED, CMP #### [facility] [address] [place] [id number] [place] ALP [Catalytic activity/Vol] 102 U/L Normal 34-104 [facility] Comment on above: Performed By: #### C BCNO, CMP #### [facility] [address] [place] [id number] [place] ALT [Catalytic activity/Vol] 10 U/L Normal 7-52 [facility] Comment on above: Performed By: #### C BCTED, CMP #### [facility] [address] Anion gap [Moles/Vol] 10.4 mmol/L Normal 6.0-15.0 [facility] Comment on above: Performed By: #### C STELLA, CMP #### [facility] [address] AST [Catalytic activity/Vol] 14 U/L Normal 13-39 [facility] Comment on above: Performed By: #### C STELLA, CMP #### [facility] [address] Bilirubin [Mass/Vol] 0.5 mg/dL Normal 0.3-1.0 [facility] Comment on above: Performed By: #### C STELLA, CMP #### [facility] [address] Calcium [Mass/Vol] 9.0 mg/dL Normal 8.6-10.3 [facility] Comment on above: Performed By: #### C STELLA, CMP #### [facility] [address] [place] [address] [place] Chloride [Moles/Vol] 103 mmol/L Normal 98-107 [facility] Comment on above: Performed By: #### C STELLA, CMP #### [facility] [address] CO2 [Moles/Vol] 28.4 mmol/L Normal 21.0-31.0 [facility] Comment on above: Performed By: #### C STELLA, CMP #### [facility] [address] [place] [address] [place] Creatinine [Mass/Vol] 0.67 mg/dL Normal 0.60-1.20 [facility] Comment on above: Performed By: #### C STELLA, CMP #### [facility] [address] [place] [address] [place] Creatinine Clr Calc Pharmacy 106.18 Normal [facility] Comment on above: Result Comment: PERF ORMED BY: [place] [address] PATHOLOGIST ASSEMBLER CLIP ON SUNGLASSES ROOSEVELT KEYES M.D. Performed By: #### C STELLA, CMP #### [facility] [address] [place] [address] [place] GFR/1.73 sq M.predicted MDRD (S/P/Bld) [Vol rate/Area] mL/min/{1.73_m2} [facility] Comment on above: Performed By: #### C STELLA, CMP #### [facility] [address] Globulin (S) [Mass/Vol] 2.7 g/dL [facility] Comment on above: Performed By: #### C STELLA, CMP #### [address] Glucose [Mass/Vol] 96 mg/dL Normal 70-100 [facility] Comment on above: Result Comment: [facility] Glucose Reference Range is dependent on time and content of last meal. Glucose of more than 200 mg/dL in a nonstressed, ambulatory subject supports the diagnosis of Diabetes Mellitus. ADA recommended reference range Performed By: #### C STELLA, CMP #### [facility] [address] [place] [address] [place] Potassium [Moles/Vol] 3.8 mmol/L Normal 3.5-5.1 [facility] Comment on above: Performed By: #### C STELLA, CMP #### [facility] [address] [place] [address] [place] Protein [Mass/Vol] 6.5 g/dL Normal 6.4-8.9 [facility] Comment on above: Performed By: #### C STELLA, CMP #### [facility] [address] [place] [address] [place] Sodium [Moles/Vol] 138 mmol/L Normal 136-145 [facility] Comment on above: Performed By: #### C BCTED, CMP #### [facility] [address] Urea nitrogen [Mass/Vol] 8 mg/dL Normal 7-25 [facility] Comment on above: Performed By: #### C BCNO, CMP #### [facility] [address] [place] [id number] [facility] [place] esophagus ugion [place] esophagus ugi [facility] [place] [address] [place] [id number] Fluoroscopy Report Signed Patient: Constantino Cardoso MR#: [id number] : 1970 Acct:[id number] Age/Sex: 52 / F ADM Date: 03/26/23 Loc: Room: [address] [place] [address] Type: ADM IN Attending Dr: Denan Montalvo MD Copies to: MD Deann Blue MD Ordering Provider: Renny Gan MD Date of Service: 03/29/23 FL/FL esophagus ugi: NAUSEA DOUBLE CONTRAST UPPER GI SERIES CLINICAL HISTORY: Nausea vomiting. History of Ramiro fundoplication. COMPARISON: None TECHNIQUE: Double contrast upper GI series was performed. Cumulative Air Kerma in mGy: 305.03 mGy FINDINGS: Pourer Metal image demonstrates no acute findings. The esophagus demonstrates no evidence of stricture, mass or ulcer. Gastric contractions are noted involving the distal esophagus. The patient is status post Ramiro fundoplication. There was delayed passage of the barium through the Ramiro fundoplication secondary to the tertiary contractions. Gastroesophageal reflux was seen through the Ramiro fundoplication into the distal esophagus when the patient was in a BARNES position. Stomach demonstrates no stricture, mass or ulcer. Duodenal bulb and C-loop demonstrates no suspicious findings. FL/FL esophagus ugi IMPRESSION: TERTIARY CONTRACTIONS ARE NOTED INVOLVING THE DISTAL ESOPHAGUS WITH DELAYED PASSAGE OF GIVEN BARIUM THROUGH THE RAMIRO FUNDOPLICATION. IN ADDITION, THERE APPEARS TO BE GASTROESOPHAGEAL REFLUX THROUGH THE RAMIRO FUNDOPLICATION. NO DEFINITIVE EVIDENCE OF STRICTURE, MASS OR ULCER. CORRELATION WITH ENDOSCOPY IS SUGGESTED. Impression dictated by: Tiburcio Bateman Jr., D.O.03/29/2023 1:23 PM Dictation Location: [place] [address] Transcribed By: [facility] 03/29/23 1323 Dictated By: Tiburcio Bateman Jr, DO 03/29/23 1317 Signed By: 03/29/23 1323 Normal [facility] Hemogram CBC Without Diffon 03-29-2023 Erythrocyte distribution width (RBC) [Ratio] 13.4 % Normal 11.9-15.3 [facility] Comment on above: Performed By: #### C BCTED, CMP #### [address] Hematocrit (Bld) [Volume fraction] 35.4 % Normal 34.0-46.4 [facility] Comment on above: Performed By: #### C BCTED, CMP #### [address] Hemoglobin (Bld) [Mass/Vol] 12.0 g/dL Normal 11.8-15.4 [facility] Comment on above: Performed By: #### C STELLA, CMP #### [address] MCH (RBC) [Entitic mass] 29.2 pg Normal 24.7-34.3 [facility] Comment on above: Performed By: #### C BCTED, CMP #### [address] MCV (RBC) [Entitic vol] 86.0 fL Normal 80-100 [facility] Comment on above: Performed By: #### C STELLA, CMP #### [address] Mean Corpuscular HGB Conc 33.9 g/dL Normal 32.0-35.0 [facility] Comment on above: Performed By: #### C BCTED, CMP #### [address] Platelet mean volume (Bld) [Entitic vol] 7.6 fL Normal 6.3-10.7 [facility] Comment on above: Result Comment: PERF ORMED BY: [place] [address] PATHOLOGIST ASSEMBLER CLIP ON SUNGLASSES ROOSEVELT KEYES M.D. Performed By: #### C BCTED, CMP #### [address] Platelets (Bld) [#/Vol] 288 10*3/uL Normal 150-450 [facility] Comment on above: Performed By: #### C STELLA, CMP #### [facility] [address] RBC (Bld) [#/Vol] 4.11 10*6/uL Normal 3.60-5.00 [facility] Comment on above: Performed By: #### C USAMANO, CMP #### [facility] [address] WBC (Bld) [#/Vol] 6.5 10*3/uL Normal 3.8-11.6 [facility] Comment on above: Performed By: #### C USAMANO, CMP #### [facility] [address] XR abdomen min 2Von 03-28-20 23 XR abdomen min 2V [facility] [place] [address] [place] [address] XRay Report Signed Patient: Constantino Cardoso MR#: [id number] : 1970 Acct:[id number] Age/Sex: 52 / F ADM Date: 03/26/23 Loc: Room: [address] [place] [address] Type: ADM IN Attending Dr: Deann Montalvo MD Copies to: MD Deann Blue MD Ordering Provider: Renny Gan MD Date of Service: 03/28/23 XR/XR abdomen min 2V: PAIN Abdomen 2 views. Reason for exam: Vomiting upper abdominal pain for one week. COMPARISON: CT abdomen and pelvis 03/23/2023. FINDINGS: No free air. Nonspecific bowel gas pattern. Vascular calcifications. Post cholecystectomy clips. Osseous structures demonstrate degenerative change. XR/XR abdomen min 2V IMPRESSION: No acute process is seen. Impression dictated by: Tiburcio Bateman Jr., D.O.03/28/2023 12:24 PM Dictation Location: [place] [address] Transcribed By: [facility] 03/28/23 1224 Dictated By: Tiburcio Bateman Jr, DO 03/28/23 1223 Signed By: 03/28/23 1224 Normal [facility] Complete Blood Count Auto Di ffon 03-27-2023 Basophils (Bld) [#/Vol] 0.0 10*3/uL Normal 0.0-0.2 [facility] Comment on above: Result Comment: PERF ORMED BY: [place] [address] PATHOLOGIST ASSEMBLER CLIP ON SUNGLASSES ROOSEVELT KEYES M.D. Performed By: #### C BC #### [address] Basophils/100 WBC (Bld) 0.5 % Normal . [facility] Comment on above: Performed By: #### C BC #### [address] Eosinophils (Bld) [#/Vol] 0.2 10*3/uL Normal 0.0-0.45 [facility] Comment on above: Performed By: #### C BC #### [address] Eosinophils/100 WBC (Bld) 4.7 % Normal . [facility] Comment on above: Performed By: #### C BC #### [address] Erythrocyte distribution width (RBC) [Ratio] 13.6 % Normal 11.9-15.3 [facility] Comment on above: Performed By: #### C BC #### [address] Hematocrit (Bld) [Volume fraction] 34.1 % Normal 34.0-46.4 [facility] Comment on above: Performed By: #### C BC #### [place] [address] [place] Hemoglobin (Bld) [Mass/Vol] 11.4 g/dL Low 11.8-15.4 [facility] Comment on above: Performed By: #### C BC #### [place] [address] [place] Lymphocytes (Bld) [#/Vol] 1.3 10*3/uL Normal 1.00-4.8 [facility] Comment on above: Performed By: #### C BC #### [address] Lymphocytes/100 WBC (Bld) 32.8 % Normal . [facility] Comment on above: Performed By: #### C BC #### [address] MCH (RBC) [Entitic mass] 28.9 pg Normal 24.7-34.3 [facility] Comment on above: Performed By: #### C BC #### [address] MCV (RBC) [Entitic vol] 86.0 fL Normal 80-100 [facility] Comment on above: Performed By: #### C BC #### [address] Mean Corpuscular HGB Conc 33.6 g/dL Normal 32.0-35.0 [facility] Comment on above: Performed By: #### C BC #### [address] Monocytes (Bld) [#/Vol] 0.3 10*3/uL Normal 0.0-0.8 [facility] Comment on above: Performed By: #### C BC #### [address] Monocytes/100 WBC (Bld) 7.7 % Normal . [facility] Comment on above: Performed By: #### C BC #### [address] Neutrophils (Bld) [#/Vol] 2.1 10*3/uL Normal 1.8-7.7 [facility] Comment on above: Performed By: #### C BC #### [address] Neutrophils/100 WBC (Bld) 54.3 % Normal . [facility] Comment on above: Performed By: #### C BC #### [address] NRBC% 0.1 /100{WBC} Normal 0-0.5 [facility] Comment on above: Performed By: #### C BC #### [address] Platelet mean volume (Bld) [Entitic vol] 7.8 fL Normal 6.3-10.7 [facility] Comment on above: Performed By: #### C BC #### [address] Platelets (Bld) [#/Vol] 291 10*3/uL Normal 150-450 [facility] Comment on above: Performed By: #### C BC #### [address] RBC (Bld) [#/Vol] 3.97 10*6/uL Normal 3.60-5.00 [facility] Comment on above: Performed By: #### C BC #### [address] WBC (Bld) [#/Vol] 3.9 10*3/uL Normal 3.8-11.6 [facility] Comment on above: Performed By: #### C BC #### [address] Comprehensive Metabolic Pane miranda 03-27-2023 Albumin [Mass/Vol] 3.5 g/dL Normal 3.5-5.7 [facility] Comment on above: Performed By: #### H EPATIC, CBC, BMP, LIPASE #### [address] Albumin/Globulin [Mass ratio] 1.4 {ratio} Normal [facility] Comment on above: Performed By: #### H EPATIC, CBC, BMP, LIPASE #### [address] ALP [Catalytic activity/Vol] 91 U/L Normal 34-104 [facility] Comment on above: Performed By: #### H EPATIC, CBC, BMP, LIPASE #### [facility] [address] ALT [Catalytic activity/Vol] 10 U/L Normal 7-52 [facility] Comment on above: Performed By: #### H EPATIC, CBC, BMP, LIPASE #### [facility] [address] [place] [address] Anion gap [Moles/Vol] 6.9 mmol/L Normal 6.0-15.0 [facility] Comment on above: Performed By: #### H EPATIC, CBC, BMP, LIPASE #### [address] AST [Catalytic activity/Vol] 13 U/L Normal 13-39 [facility] Comment on above: Performed By: #### H EPATIC, CBC, BMP, LIPASE #### [address] Bilirubin [Mass/Vol] 0.5 mg/dL Normal 0.3-1.0 [facility] Comment on above: Performed By: #### H EPATIC, CBC, BMP, LIPASE #### [facility] [address] [place] [address] Calcium [Mass/Vol] 8.6 mg/dL Normal 8.6-10.3 [facility] Comment on above: Performed By: #### H EPATIC, CBC, BMP, LIPASE #### [facility] [address] [place] [address] [place] Chloride [Moles/Vol] 109 mmol/L High 98-107 [facility] Comment on above: Performed By: #### H EPATIC, CBC, BMP, LIPASE #### [facility] [address] [place] [address] CO2 [Moles/Vol] 28.9 mmol/L Normal 21.0-31.0 [facility] Comment on above: Performed By: #### H EPATIC, CBC, BMP, LIPASE #### [address] Creatinine [Mass/Vol] 0.72 mg/dL Normal 0.60-1.20 [facility] Comment on above: Performed By: #### H EPATIC, CBC, BMP, LIPASE #### [address] Creatinine Clr Calc Pharmacy 97.02 [facility] Comment on above: Performed By: #### H EPATIC, CBC, BMP, LIPASE #### [address] GFR/1.73 sq M.predicted MDRD (S/P/Bld) [Vol rate/Area] mL/min/{1.73_m2} [facility] Comment on above: Performed By: #### H EPATIC, CBC, BMP, LIPASE #### [address] Globulin (S) [Mass/Vol] 2.5 g/dL [facility] Comment on above: Performed By: #### H EPATIC, CBC, BMP, LIPASE #### [address] Glucose [Mass/Vol] 104 mg/dL High 70-100 [facility] Comment on above: Result Comment: [facility] Glucose Reference Range is dependent on time and content of last meal. Glucose of more than 200 mg/dL in a nonstressed, ambulatory subject supports the diagnosis of Diabetes Mellitus. ADA recommended reference range Performed By: #### H EPATIC, CBC, BMP, LIPASE #### [address] Potassium [Moles/Vol] 3.8 mmol/L Normal 3.5-5.1 [facility] Comment on above: Performed By: #### H EPATIC, CBC, BMP, LIPASE #### [address] Protein [Mass/Vol] 6.0 g/dL Low 6.4-8.9 [facility] Comment on above: Performed By: #### H EPATIC, CBC, BMP, LIPASE #### [address] Sodium [Moles/Vol] 141 mmol/L Normal 136-145 [facility] Comment on above: Performed By: #### H EPATIC, CBC, BMP, LIPASE #### [address] Urea nitrogen [Mass/Vol] 10 mg/dL Normal 7-25 [facility] Comment on above: Performed By: #### H EPATIC, CBC, BMP, LIPASE #### [facility] [address] [place] [address] Lipaseon 03-27-2023 Lipase [Catalytic activity/Vol] 14.0 U/L Normal 11.0-82.0 [facility] Comment on above: Result Comment: PERF ORMED BY: [place] [address] PATHOLOGIST ASSEMBLER CLIP ON SUNGLASSES ROOSEVELT KEYES M.D. Performed By: #### H EPATIC, CBC, BMP, LIPASE #### [address] Magnesiumon 03-27-2023 Magnesium [Mass/Vol] 1.8 mg/dL Low 1.9-2.7 [facility] Comment on above: Performed By: #### H EPATIC, CBC, BMP, LIPASE #### [address] angio abdomen pelvison CT angio abdomen pelvis [facility] [place] [address] [place] [address] CT Scan Report Signed Patient: Constantino Cardoso MR#: [id number] : 1970 Acct:[id number] Age/Sex: 52 / F ADM Date: 03/26/23 Loc: Room: [address] [place] [address] Type: ADM IN Attending Dr: Raf Steward MD Copies to: MD Raf Lieberman MD Ordering Provider: Ron Fair MD Date of Service: 03/26/23 CT/CT angio abdomen pelvis: epigastric pain CT angio abdomen pelvis 03/26/2023 4:26 AM SIGNS AND SYMPTOMS: epigastric pain TECHNIQUE: Multidetector ct axial images of the abdomen and pelvis were obtained with IV contrast. Multiplanar reformats were performed and reviewed to further define anatomy and possible pathology. CT was performed with one or more of the following dose reduction techniques: Automated exposure control, adjustment of the mA and/or kV according to patient size, or use of iterative reconstruction technique. COMPARISON: 03/23/2023. FINDINGS: Lower Chest: There is mild dependent atelectasis in the lung bases. There is a hiatal hernia with gastric fundus in the lower mediastinum. ABDOMEN: Liver: Within normal limits. Bile Ducts: There is dilatation of the common bile duct is presumably secondary to prior cholecystectomy. Gallbladder: Previously removed. Pancreas: Within normal limits. Spleen: Within normal limits. Adrenals: Within normal limits. Kidneys: Within normal limits. Pelvis: Reproductive Organs: No pelvic masses. Ureters: Within normal limits. Bladder: Within normal limits. Bowel: Normal caliber. There is a normal appendix in the right lower quadrant. Mesenteric Lymph Nodes: No enlarged mesenteric lymph nodes. Peritoneum: No ascites or free air, no fluid collection. Vessels: within normal limits Retroperitoneum: Within normal limits. Abdominal Wall: Within normal limits. Bones: Within normal limits. CT/CT angio abdomen pelvis IMPRESSION: No acute intra-abdominal pathology. No bowel obstruction or obstructive uropathy. There is dilatation of the common bile duct is presumably secondary to prior cholecystectomy. There is mild dependent atelectasis in the lung bases. There is a hiatal hernia with gastric fundus in the lower mediastinum. Impression dictated by: Nora Benites M.D.03/26/2023 9:41 AM Dictation Location: [place] [address] Transcribed By: [facility] 03/26/2341 Dictated By: Nora Benites II, MD 03/26/23 0935 Signed By: 03/26/23 0941 [facility] CT angio cheston 03-26-2023 CT angio chest [facility] [place] [address] [place] [address] CT Scan Report Signed Patient: Constantino Cardoso MR#: [id number] : 1970 Acct:[id number] Age/Sex: 52 / F ADM Date: 03/26/23 Loc: Room: [address] [place] [address] Type: ADM IN Attending Dr: Raf Steward MD Copies to: MD Raf Lieberman MD Ordering Provider: Ron Fair MD Date of Service: 03/26/23 CT/CT angio chest: chest pain CT angio chest 03/26/2023 4:24 AM SIGN AND SYMPTOMS: Epigastric pain, nausea, chest pain CONTRAST: 100 mL of intravenous Isovue-370 TECHNIQUE: Multidetector CT axial slices of the chest were obtained with IV contrast. Multiplanar reformats were performed and viewed on a separate workstation and reviewed to further define anatomy and possible pathology. CT was performed with one or more of the following dose reduction techniques: Automated exposure control, adjustment of the mA and/or kV according to patient size, or use of iterative reconstruction technique. COMPARISON: None. FINDINGS: Lower neck: Thyroid gland within normal limits, no supraclavicle adenopathy. Vessels: Within normal limits. There is no evidence of pulmonary embolism. Mediastinum and Abram: Within normal limits. Heart: Normal size. No pericardial effusion. Airways: Within normal limits Lungs: There is mild dependent atelectasis in the lung parenchyma. Pleura: Within normal limits. Chest Wall: Within normal limits. Upper Abdomen: There is a sliding-type hiatal hernia with gastric fundus projecting into the lower mediastinum. Bones: Degenerative changes are noted in the thoracic spine. CT/CT angio chest IMPRESSION: No acute cardiopulmonary pathology. There is no evidence of pulmonary embolism. Thoracic aorta is normal in caliber without evidence of dissection, aneurysm dilatation, or occlusion. Mild dependent atelectasis is noted in the lung bases. Impression dictated by: Nora Benites M.D.03/26/2023 9:34 AM Dictation Location: [place] [address] Transcribed By: [facility] 03/26/23933 Dictated By: Nora Benites II, MD 03/26/2330 Signed By: 03/26/23933 [facility] Comprehensive Metabolic Pane miranda 03-26-2023 Albumin [Mass/Vol] 3.8 g/dL Normal 3.5-5.7 [facility] Comment on above: Performed By: #### P ORS #### [address] Albumin/Globulin [Mass ratio] 1.6 {ratio} Normal [facility] Comment on above: Performed By: #### P ORS #### [address] ALP [Catalytic activity/Vol] 105 U/L High 34-104 [facility] Comment on above: Performed By: #### P ORS #### [address] ALT [Catalytic activity/Vol] 11 U/L Normal 7-52 [facility] Comment on above: Performed By: #### P ORS #### [address] Anion gap [Moles/Vol] 9.7 mmol/L Normal 6.0-15.0 [facility] Comment on above: Performed By: #### P ORS #### [facility] [address] [place] [address] AST [Catalytic activity/Vol] 14 U/L Normal 13-39 [facility] Comment on above: Performed By: #### P ORS #### [address] Bilirubin [Mass/Vol] 0.4 mg/dL Normal 0.3-1.0 [facility] Comment on above: Performed By: #### P ORS #### [address] Calcium [Mass/Vol] 8.6 mg/dL Normal 8.6-10.3 [facility] Comment on above: Performed By: #### P ORS #### [facility] [address] [place] [address] Chloride [Moles/Vol] 107 mmol/L Normal 98-107 [facility] Comment on above: Performed By: #### P ORS #### [address] CO2 [Moles/Vol] 25.3 mmol/L Normal 21.0-31.0 [facility] Comment on above: Performed By: #### P ORS #### [facility] [address] Creatinine [Mass/Vol] 0.76 mg/dL Normal 0.60-1.20 [facility] Comment on above: Performed By: #### P ORS #### [place] [address] [place] Creatinine Clr Calc Pharmacy 92.46 [facility] Comment on above: Performed By: #### P ORS #### [place] [address] [place] GFR/1.73 sq M.predicted MDRD (S/P/Bld) [Vol rate/Area] mL/min/{1.73_m2} [facility] Comment on above: Performed By: #### P ORS #### [address] Globulin (S) [Mass/Vol] 2.4 g/dL [facility] Comment on above: Performed By: #### P ORS #### [address] Glucose [Mass/Vol] 122 mg/dL High 70-100 [facility] Comment on above: Result Comment: [facility] Glucose Reference Range is dependent on time and content of last meal. Glucose of more than 200 mg/dL in a nonstressed, ambulatory subject supports the diagnosis of Diabetes Mellitus. ADA recommended reference range Performed By: #### P ORS #### [address] Potassium [Moles/Vol] 4.0 mmol/L Normal 3.5-5.1 [facility] Comment on above: Performed By: #### P ORS #### [address] Protein [Mass/Vol] 6.2 g/dL Low 6.4-8.9 [facility] Comment on above: Performed By: #### P ORS #### [address] Sodium [Moles/Vol] 138 mmol/L Normal 136-145 [facility] Comment on above: Performed By: #### P ORS #### [facility] [address] [place] [address] Urea nitrogen [Mass/Vol] 12 mg/dL Normal 7-25 [facility] Comment on above: Performed By: #### P ORS #### [address] Drug Screen,Urineon 03-26-20 Amphetamine Screen,Urine Negative Normal Negative [facility] Comment on above: Performed By: #### H EPATIC, CBC, BMP, LIPASE #### [address] Barbiturate Screen,Urine Negative Normal Negative [facility] Comment on above: Performed By: #### H EPATIC, CBC, BMP, LIPASE #### [address] Benzodiazepines Screen,Urine Negative Normal Negative [facility] Comment on above: Performed By: #### H EPATIC, CBC, BMP, LIPASE #### [address] Cannabinoid Screen,Urine Negative Normal Negative [facility] Comment on above: Result Comment: Thes e are unconfirmed results and should not be used for legal purposes. Drug Cut-Off Concentration: AMPH 1000 ng/mL HAWA 200 ng/mL ELSA 200 ng/mL COCM 300 ng/mL OP 300 ng/mL PCP 25 ng/mL THC 20 ng/mL PERFORMED BY: [place] [address] PATHOLOGIST ASSEMBLER CLIP ON SUNGLASSES ROOSEVELT KEYES M.D. Performed By: #### H EPATIC, CBC, BMP, LIPASE #### [address] Cocaine Screen,Urine Negative Normal Negative [facility] Comment on above: Performed By: #### H EPATIC, CBC, BMP, LIPASE #### [address] Opiate Screen,Urine Positive High Negative [facility] Comment on above: Performed By: #### H EPATIC, CBC, BMP, LIPASE #### [facility] [address] Phencyclidine Screen,Urine Negative Normal Negative [facility] Comment on above: Performed By: #### H EPATIC, CBC, BMP, LIPASE #### [facility] [address] [place] [id number] [place] [facility] echo transthoracicon [facility] echo transthoracic [facility] [place] [address] [place] [address] Echocardiogram Signed Patient: Constantino Cardoso MR#: [id number] : 1970 Acct:[id number] Age/Sex: 52 / F ADM Date: 03/26/23 Loc: Room: [address] [place] [address] Type: ADM IN Attending Dr: Raf Steward MD Ordering Provider: Ron Fair MD Date of Service: 03/26/23 [facility] echo transthoracic: chest pain Copies to: MD Hloly Lieberman MD, [facility] BSA: 1.9 m2 BP: 155/86 mmHg HR: 65 Reason For Study: chest pain History: HTN, MVP Interpretation Summary Mild concentric left ventricular hypertrophy. Ejection Fraction = 60-65%. The left ventricular wall motion is normal. There is no prior echocardiogram noted for this patient. Procedure/Quality: A two-dimensional transthoracic echocardiogram with color flow and Doppler was performed. The study was technically good in quality. There is no prior echocardiogram noted for this patient. Left Ventricle: Mild concentric left ventricular hypertrophy. Ejection Fraction = 60-65%. The left ventricular wall motion is normal. Left Atrium: The left atrium appears normal in size. The atrial septum appears normal. Right Atrium: The right atrium appears normal in size. Right Ventricle: The right ventricular size, thickness and function are normal. Aortic Valve: The aortic valve is normal in structure and function. No aortic regurgitation is present. Mitral Valve: The mitral valve is normal in structure and function. There is no mitral regurgitation noted. Tricuspid Valve: The tricuspid valve is normal in structure and function. No tricuspid regurgitation. Pulmonic Valve: The pulmonic valve is normal in structure and function. Arteries: The aortic root is normal size. Pericardium/Pleura: No pericardial effusion seen. There is no pleural effusion. IVC/Hepatic Viens: The inferior vena cava is normal in size, with a normal collapsibility index. Miscellaneous: No thrombus, vegetation or mass is seen. Measurements with Normals IVSd: 1.3 cm (0.7-1.1 cm)LVIDd: 4.1 cm (3.7-5.4 cm) LVPWd: 1.3 cm (0.7-1.1 cm)LVIDs: 2.7 cm (2.3-3.6 cm) LA dimension: 4.5 cm (2.3-4.0 cm)Ao root diam: 3.4 cm(2.0-3.6 cm) asc Aorta Diam: 3.4 cm(2.1-3.4cm) Doppler with Normals MV E max manasa: 77.1 cm/sec(0.8-1.3m/s) MV A max manasa: 69.0 cm/sec(0.0-0.0m/s) MV E/A: 1.1 (<1.5) MMode/2D Measurements Calculations RVDd: 3.5 cm FS: 34.1 % Ao root area: LVLd ap4: 6.4 cm TAPSE: 4.0 cm EDV(Teich): 8.9 cm2 EDV(MOD-sp4): RV S Manasa: 75.3 ml 41.8 ml 16.9 cm/sec ESV(Teich): LVLs ap4: 6.0 cm 27.5 ml ESV(MOD-sp4): EF(Teich): 63.5 % 15.7 ml EF(MOD-sp4): 62.4 % __ SV(MOD-sp4): LAV(MOD-sp4): LA A4 area: 19.3 cm2 26.1 ml 57.3 ml LA length (vol): 5.2 cm Doppler Measurements Calculations MV dec time: 0.29 sec E/E' lat: 7.4 E/E' med: 12.4 MV dec slope: 265.5 cm/sec2 Transcribed By: MATT Performed At: 03/26/23 0909 Signed By: Holly Castro MD, [facility] 03/26/23 1148 Normal [facility] Hepatic Panelon 03-26-2023 Bilirubin,Indirect 0.3 mg/dL Normal [facility] Comment on above: Performed By: #### P ORS #### [facility] [address] Bilirubin.indirect [Mass/Vol] 0.10 mg/dL Normal 0.03-0.18 [facility] Comment on above: Performed By: #### P ORS #### [facility] [address] Lactic Acidon 03-26-2023 Lactate [Moles/Vol] 0.5 mmol/L Normal 0.5-2.2 [facility] Comment on above: Result Comment: PERF ORMED BY: [place] [address] PATHOLOGIST ASSEMBLER CLIP ON SUNGLASS[employer] ROOSEVELT KEYES M.D. Performed By: #### L ACTIC, HEPATIC, LIPASE, CMP, HS TROP, MG #### [facility] [address] Lipaseon 03-26-2023 Lipase [Catalytic activity/Vol] 8.0 U/L Low 11.0-82.0 [facility] Comment on above: Result Comment: PERF ORMED BY: [place] [address] PATHOLOGIST ASSEMBLER [employer] ROOSEVELT KEYES M.D. Performed By: #### P ORS #### [facility] [address] Magnesiumon 03-26-2023 Magnesium [Mass/Vol] 1.8 mg/dL Low 1.9-2.7 [facility] Comment on above: Performed By: #### P ORS #### [facility] [address] [place] [address] [place] Porphyrins,Stoolon 3 Porphyrins,Stool Normal [facility] Comment on above: Result Comment: See report. Scanned copy available in EMR. PERFORMED BY: [place] [address] PATHOLOGIST ASSEMBLER [employer] SUNGL[employer] ROOSEVELT KEYES M.D. Performed By: #### P ORS #### [facility] [address] [place] [address] Troponin I High Sensitivityo n 03-26-2023 Troponin I High Sensitivity 13.8 pg/mL Normal 0.0-15.0 [facility] Comment on above: Result Comment: PERF ORMED BY: [place] [address] PATHOLOGIST ASSEMBLER CLIP ON SUN[employer] ROOSEVELT KEYES M.D. Performed By: #### H EPATIC, CBC, BMP, LIPASE #### [facility] [address] [place] [address] Troponin I High Sensitivity 14.1 pg/mL Normal 0.0-15.0 [facility] Comment on above: Result Comment: PERF ORMED BY: [place] [address] PATHOLOGIST ASSEMBLER CLIP ON SUNGL[employer] ROOSEVELT KEYES M.D. Performed By: #### P ORS #### [facility] [address] [place] [address] Alanine aminotransferase [En zymatic activity/volume] in Serum or PlasmaOrdered By: Pete Thakkar on 03-23-2023 ALT [Catalytic activity/Vol] 11 U/L 7-52 [facility] Albumin [Mass/volume] in Ser um or Plasma by Bromocresol green (BCG) dye binding methoOrdered By: Pete Thakkar on 03-23-2023 Albumin BCG dye [Mass/Vol] 4.1 g/dL 3.5-5.7 [facility] Alkaline phosphatase [Enzyma tic activity/volume] in Serum or PlasmaOrdered By: Pete Thakkar on 03-23-2023 ALP [Catalytic activity/Vol] 115 U/L 34-104 [facility] Aspartate aminotransferase [ Enzymatic activity/volume] in Serum or PlasmaOrdered By: Pete Thakkar on 03-23-2023 AST [Catalytic activity/Vol] 15 U/L 13-39 [facility] Automated erythrocytes count in urine sediment (number/area)Ordered By: Pete Thakkar on 03-23-2023 RBC Auto (Urine sed) [#/Area] 0-1 [HPF] 0-4 [facility] Automated leukocytes count i n urine sediment (number/area)Ordered By: Pete Thakkar on 03-23-2023 WBC Auto (Urine sed) [#/Area] 0-1 [HPF] 0-4 [facility] Basic Metabolic Panelon 03-05 Anion gap [Moles/Vol] 10.1 mmol/L Normal 6.0-15.0 [facility] Comment on above: Performed By: #### H EPATIC, CBC, BMP, LIPASE #### [facility] [address] Calcium [Mass/Vol] 9.0 mg/dL Normal 8.6-10.3 [facility] Comment on above: Performed By: #### H EPATIC, CBC, BMP, LIPASE #### [facility] [address] Chloride [Moles/Vol] 111 mmol/L High 98-107 [facility] Comment on above: Performed By: #### H EPATIC, CBC, BMP, LIPASE #### [facility] [address] [place] [address] [place] CO2 [Moles/Vol] 24.5 mmol/L Normal 21.0-31.0 [facility] Comment on above: Performed By: #### H EPATIC, CBC, BMP, LIPASE #### [facility] [address] Creatinine [Mass/Vol] 0.72 mg/dL Normal 0.60-1.20 [facility] Comment on above: Performed By: #### H EPATIC, CBC, BMP, LIPASE #### [facility] [address] [place] [address] Creatinine Clr Calc Pharmacy 105.27 [facility] Comment on above: Performed By: #### H EPATIC, CBC, BMP, LIPASE #### [address] GFR/1.73 sq M.predicted MDRD (S/P/Bld) [Vol rate/Area] mL/min/{1.73_m2} [facility] Comment on above: Performed By: #### H EPATIC, CBC, BMP, LIPASE #### [address] Glucose [Mass/Vol] 79 mg/dL Normal 70-100 [facility] Comment on above: Result Comment: [facility] Glucose Reference Range is dependent on time and content of last meal. Glucose of more than 200 mg/dL in a nonstressed, ambulatory subject supports the diagnosis of Diabetes Mellitus. ADA recommended reference range Performed By: #### H EPATIC, CBC, BMP, LIPASE #### [address] Potassium [Moles/Vol] 3.6 mmol/L Normal 3.5-5.1 [facility] Comment on above: Performed By: #### H EPATIC, CBC, BMP, LIPASE #### [address] Sodium [Moles/Vol] 142 mmol/L Normal 136-145 [facility] Comment on above: Performed By: #### H EPATIC, CBC, BMP, LIPASE #### [address] Urea nitrogen [Mass/Vol] 24 mg/dL Normal 7-25 [facility] Comment on above: Performed By: #### H EPATIC, CBC, BMP, LIPASE #### [address] Basophils Auto (Bld) [#/Vol] Ordered By: Pete Thakkar on 03-23-2023 Basophils (Bld) [#/Vol] 0.1 10*3/uL 0.0-0.2 [facility] Basophils/100 WBC Auto (Bld) Ordered By: Pete Thakkar on 03-23-2023 Basophils/100 WBC (Bld) 1.0 % . [facility] Bilirubin Test strip Ql (U)O rdered By: Pete Thakkar on 03-23-2023 Bilirubin Ql (U) Negative Negative [facility] Bilirubin.direct [Mass/volum e] in Serum or PlasmaOrdered By: Pete Thakkar on 03-23-2023 Bilirubin.direct [Mass/Vol] 0.10 mg/dL 0.03-0.18 [facility] Bilirubin.total [Mass/volume ] in Serum or PlasmaOrdered By: Pete Thakkar on 03-23-2023 Bilirubin [Mass/Vol] 0.3 mg/dL 0.3-1.[address] [facility] CT abdomen pelvis w conon CT abdomen pelvis w con [facility] [place] [address] CT Scan Report Signed Patient: Constantino Cardoso MR#: [id number] : 1970 Acct:[id number] Age/Sex: 52 / F ADM Date: 03/23/23 Loc: ER Room: Type: [facility] ER Attending Dr: Copies to: Pete Thakkar DO Ordering Provider: Pete Thakkar DO Date of Service: 03/23/23 CT/CT abdomen pelvis w con: abd pain prior obstructions CT ABDOMEN AND PELVIS WITH CONTRAST COMPARISON: 02/15/2023 CLINICAL DATA: Abdominal pain with nausea and vomiting. Spiral images were obtained through the abdomen and pelvis following 90 mL Isovue-300. This CT exam was performed using one or more following dose reduction techniques: Automated exposure control, adjustment of the mA and/or kV according to patient size, or use of iterative reconstruction technique. Limited cuts through the lung bases show a small hiatal hernia with appearance suggesting previous repair. This is unchanged. There is minimal scarring or atelectasis. The gallbladder is surgically absent and the common duct remains prominent. No choledocholithiasis is seen. The liver, spleen, pancreas and adrenal glands show no acute findings. There are symmetric renal nephrograms, without hydronephrosis. The abdominal aorta is normal caliber. There are a few small lymph nodes. No ascites is seen. There is air and fluid within the stomach. The small bowel loops are not distended. There is stool within the ascending and proximal transverse colon. The left colon is underdistended. There is dextroscoliotic curvature and minor degenerative change at the spine. Images through the pelvis show no dilated small bowel. There is stool at the cecum and rectum. The remainder of the left colon is decompressed. No diverticular disease is noted. The appendix appears short though there is no evidence of inflammation. The uterus is surgically absent. No bladder abnormalities are identified given the degree of distention. There are benign inguinal lymph nodes with fatty abram. No ascites is seen. CT/CT abdomen pelvis w con IMPRESSION: NO BOWEL OR URINARY TRACT OBSTRUCTION. NO ACUTE FINDINGS. Impression dictated by: Columba Domínguez M.D.03/23/2023 7:47 AM Dictation Location: [place] [address] Transcribed By: [facility] 03/23/2347 Dictated By: Columba Domínguez MD 03/23/23 0742 Signed By: 03/23/2347 Normal [facility] Calcium [Mass/volume] in Ser um or PlasmaOrdered By: Pete Thakkar on 03-23-2023 Calcium [Mass/Vol] 9.0 mg/dL 8.6-10.3 [facility] Carbon dioxide, total [Moles /volume] in Serum or PlasmaOrdered By: Pete Thakkar on 03-23-2023 CO2 [Moles/Vol] 24.5 mmol/L 21.0-31.0 [facility] Chloride [Moles/volume] in S cristine or PlasmaOrdered By: Pete Thakkar on 03-23-2023 Chloride [Moles/Vol] 111 mmol/L 98-107 [facility] Color Auto (U)Ordered By: Shoaib Thakkar on 03-23-2023 Color (U) Yellow Yellow [facility] Complete Blood Count Auto Di ffon 03-23-2023 Basophils (Bld) [#/Vol] 0.1 10*3/uL Normal 0.0-0.2 [facility] Comment on above: Result Comment: PERF ORMED BY: [facility] [address] [place] [address] PATHOLOGIST ASSEMBLER CLIP ON SUNGLASSES ROOSEVELT KEYES M.D. Performed By: #### H EPATIC, CBC, BMP, LIPASE #### [address] Basophils/100 WBC (Bld) 1.0 % Normal . [facility] Comment on above: Performed By: #### H EPATIC, CBC, BMP, LIPASE #### [address] Eosinophils (Bld) [#/Vol] 0.3 10*3/uL Normal 0.0-0.45 [facility] Comment on above: Performed By: #### H EPATIC, CBC, BMP, LIPASE #### [address] Eosinophils/100 WBC (Bld) 5.0 % Normal . [facility] Comment on above: Performed By: #### H EPATIC, CBC, BMP, LIPASE #### [address] Erythrocyte distribution width (RBC) [Ratio] 13.6 % Normal 11.9-15.3 [facility] Comment on above: Performed By: #### H EPATIC, CBC, BMP, LIPASE #### [address] Hematocrit (Bld) [Volume fraction] 35.7 % Normal 34.0-46.4 [facility] Comment on above: Performed By: #### H EPATIC, CBC, BMP, LIPASE #### [address] Hemoglobin (Bld) [Mass/Vol] 12.0 g/dL Normal 11.8-15.4 [facility] Comment on above: Performed By: #### H EPATIC, CBC, BMP, LIPASE #### [address] Lymphocytes (Bld) [#/Vol] 2.3 10*3/uL Normal 1.00-4.8 [facility] Comment on above: Performed By: #### H EPATIC, CBC, BMP, LIPASE #### [address] Lymphocytes/100 WBC (Bld) 36.1 % Normal . [facility] Comment on above: Performed By: #### H EPATIC, CBC, BMP, LIPASE #### [address] MCH (RBC) [Entitic mass] 29.2 pg Normal 24.7-34.3 [facility] Comment on above: Performed By: #### H EPATIC, CBC, BMP, LIPASE #### [address] MCV (RBC) [Entitic vol] 86.7 fL Normal 80-100 [facility] Comment on above: Performed By: #### H EPATIC, CBC, BMP, LIPASE #### [address] Mean Corpuscular HGB Conc 33.7 g/dL Normal 32.0-35.0 [facility] Comment on above: Performed By: #### H EPATIC, CBC, BMP, LIPASE #### [address] Monocytes (Bld) [#/Vol] 0.5 10*3/uL Normal 0.0-0.8 [facility] Comment on above: Performed By: #### H EPATIC, CBC, BMP, LIPASE #### [address] Monocytes/100 WBC (Bld) 16.44 % Normal 0.00-20.00 [facility] Comment on above: Performed By: #### H EPATIC, CBC, BMP, LIPASE #### [address] Monocytes/100 WBC (Bld) 7.7 % Normal . [facility] Comment on above: Performed By: #### H EPATIC, CBC, BMP, LIPASE #### [address] Neutrophils (Bld) [#/Vol] 3.2 10*3/uL Normal 1.8-7.7 [facility] Comment on above: Performed By: #### H EPATIC, CBC, BMP, LIPASE #### [address] Neutrophils/100 WBC (Bld) 50.2 % Normal . [facility] Comment on above: Performed By: #### H EPATIC, CBC, BMP, LIPASE #### [address] NRBC% 0.1 /100{WBC} Normal 0-0.5 [facility] Comment on above: Performed By: #### H EPATIC, CBC, BMP, LIPASE #### [address] Platelet mean volume (Bld) [Entitic vol] 7.6 fL Normal 6.3-10.7 [facility] Comment on above: Performed By: #### H EPATIC, CBC, BMP, LIPASE #### [address] Platelets (Bld) [#/Vol] 357 10*3/uL Normal 150-450 [facility] Comment on above: Performed By: #### H EPATIC, CBC, BMP, LIPASE #### [address] RBC (Bld) [#/Vol] 4.12 10*6/uL Normal 3.60-5.00 [facility] Comment on above: Performed By: #### H EPATIC, CBC, BMP, LIPASE #### [address] WBC (Bld) [#/Vol] 6.3 10*3/uL Normal 3.8-11.6 [facility] Comment on above: Performed By: #### H EPATIC, CBC, BMP, LIPASE #### [address] Creatinine [Mass/volume] in Serum or PlasmaOrdered By: Pete Thakkar on 03-23-2023 Creatinine [Mass/Vol] 0.72 mg/dL 0.60-1.20 [facility] Dipstick and Microscopicon 0 03-23-2023 Appearance (U) Clear Normal Clear [facility] Comment on above: Order Comment: Name Collection Type:: Clean-Voided Midstream Performed By: #### P ORS #### [facility] [address] Bacteria,Urine 1+ High None Seen [facility] Comment on above: Order Comment: Name Collection Type:: Clean-Voided Midstream Performed By: #### P ORS #### [facility] [address] [place] [address] [place] Bilirubin,Urine Negative Normal Negative [facility] Comment on above: Order Comment: Name Collection Type:: Clean-Voided Midstream Performed By: #### P ORS #### [address] Color (U) Yellow Normal Yellow [facility] Comment on above: Order Comment: Name Collection Type:: Clean-Voided Midstream Performed By: #### P ORS #### [facility] [address] [place] [address] Glucose Ql (U) Normal Normal Normal [facility] Comment on above: Order Comment: Name Collection Type:: Clean-Voided Midstream Performed By: #### P ORS #### [place] [address] [place] Hyaline Casts,Urine None Seen Normal 0-8 [facility] Comment on above: Order Comment: Name Collection Type:: Clean-Voided Midstream Result Comment: PERF ORMED BY: [place] [address] PATHOLOGIST ASSEMBLER CLIP ON SUNGLASSES ROOSEVELT KEYES M.D. Performed By: #### P ORS #### [facility] [address] [place] [address] [place] Ketones Ql (U) Negative Normal Negative [facility] Comment on above: Order Comment: Name Collection Type:: Clean-Voided Midstream Performed By: #### P ORS #### [facility] [address] [place] [address] [place] Leukocyte esterase Test strip Ql (U) Negative Normal Negative [facility] Comment on above: Order Comment: Name Collection Type:: Clean-Voided Midstream Performed By: #### P ORS #### [address] Nitrite,Urine Negative Normal Negative [facility] Comment on above: Order Comment: Name Collection Type:: Clean-Voided Midstream Performed By: #### P ORS #### [address] Occult Blood,Urine Trace High Negative [facility] Comment on above: Order Comment: Name Collection Type:: Clean-Voided Midstream Result Comment: PERF ORMED BY: [place] [address] PATHOLOGIST ASSEMBLER CLIP ON SUNGLASSES ROOSEVELT KEYES M.D. Performed By: #### P ORS #### [address] pH (U) 5.0 [pH] Normal 5.0-9.0 [facility] Comment on above: Order Comment: Name Collection Type:: Clean-Voided Midstream Performed By: #### P ORS #### [address] Protein,Urine Negative Normal Negative [facility] Comment on above: Order Comment: Name Collection Type:: Clean-Voided Midstream Performed By: #### P ORS #### [address] RBC LM.HPF (Urine sed) [#/Area] 0 /[HPF] Normal 0-4 [facility] Comment on above: Order Comment: Name Collection Type:: Clean-Voided Midstream Performed By: #### P ORS #### [address] Specificy Wana,Urine 1.048 High 1.001-1.030 [facility] Comment on above: Order Comment: Name Collection Type:: Clean-Voided Midstream Performed By: #### P ORS #### [address] Squamous Epithelial Cell,Urine None Seen Normal 0-2 [facility] Comment on above: Order Comment: Name Collection Type:: Clean-Voided Midstream Performed By: #### P ORS #### [facility] [address] Urobilinogen,Urine Normal Normal Normal [facility] Comment on above: Order Comment: Name Collection Type:: Clean-Voided Midstream Performed By: #### P ORS #### [facility] [address] [place] [address] WBC LM.HPF (Urine sed) [#/Area] 0 /[HPF] Normal 0-4 [facility] Comment on above: Order Comment: Name Collection Type:: Clean-Voided Midstream Performed By: #### P ORS #### [facility] [address] [place] [address] Eosinophils Auto (Bld) [#/Vo l]Ordered By: Pete Thakkar on 03-23-2023 Eosinophils (Bld) [#/Vol] 0.3 10*3/uL 0.0-0.45 [facility] Eosinophils/100 WBC Auto (Bl d)Ordered By: Pete Thakkar on 03-23-2023 Eosinophils/100 WBC (Bld) 5.0 % . [facility] Erythrocyte distribution wid th Auto (RBC) [Ratio]Ordered By: Pete Thakkar on 03-23-2023 Erythrocyte distribution width (RBC) [Ratio] 13.6 % 11.9-15.3 [facility] Globulin Calc (S) [Mass/Vol] Ordered By: Pete Thakkar on 03-23-2023 Globulin (S) [Mass/Vol] 2.9 g/dL [facility] Glucose [Mass/volume] in Ser um or PlasmaOrdered By: Pete Thakkar on 03-23-2023 Glucose [Mass/Vol] 79 mg/dL 70-100 [facility] Comment on above: ADA recommended refe rence rangeRandom Glucose Reference Range is dependent on time and content of last meal. Glucose of more than 200 mg/dL in a nonstressed, ambulatory subject supports the diagnosis of Diabetes Mellitus. Hematocrit Auto (Bld) [Volum e fraction]Ordered By: Pete Thakkar on 03-23-2023 Hematocrit (Bld) [Volume fraction] 35.7 % 34.0-46.4 [facility] Hemoglobin [Mass/volume] in BloodOrdered By: Pete Bijan on 03-23-2023 Hemoglobin (Bld) [Mass/Vol] 12.0 g/dL 11.8-15.4 [facility] Hepatic Panelon 03-23-2023 Albumin [Mass/Vol] 4.1 g/dL Normal 3.5-5.7 [facility] Comment on above: Performed By: #### H EPATIC, CBC, BMP, LIPASE #### [facility] [address] Albumin/Globulin [Mass ratio] 1.4 {ratio} Normal [facility] Comment on above: Performed By: #### H EPATIC, CBC, BMP, LIPASE #### [facility] [address] ALP [Catalytic activity/Vol] 115 U/L High 34-104 [facility] Comment on above: Performed By: #### H EPATIC, CBC, BMP, LIPASE #### [facility] [address] [place] [address] [place] ALT [Catalytic activity/Vol] 11 U/L Normal 7-52 [facility] Comment on above: Performed By: #### H EPATIC, CBC, BMP, LIPASE #### [facility] [address] [place] [id number] [place] AST [Catalytic activity/Vol] 15 U/L Normal 13-39 [facility] Comment on above: Performed By: #### H EPATIC, CBC, BMP, LIPASE #### [facility] [address] [place] [id number] [place] Bilirubin [Mass/Vol] 0.3 mg/dL Normal 0.3-1.0 [facility] Comment on above: Performed By: #### H EPATIC, CBC, BMP, LIPASE #### [facility] [address] [place] [address] [place] Bilirubin,Indirect 0.2 mg/dL Normal [facility] Comment on above: Performed By: #### H EPATIC, CBC, BMP, LIPASE #### [facility] [address] Bilirubin.indirect [Mass/Vol] 0.10 mg/dL Normal 0.03-0.18 [facility] Comment on above: Performed By: #### H EPATIC, CBC, BMP, LIPASE #### [facility] [address] Globulin (S) [Mass/Vol] 2.9 g/dL Normal [facility] Comment on above: Performed By: #### H EPATIC, CBC, BMP, LIPASE #### [address] Protein [Mass/Vol] 7.0 g/dL Normal 6.4-8.9 [facility] Comment on above: Performed By: #### H EPATIC, CBC, BMP, LIPASE #### [address] Ketones Auto test strip (U) [Mass/Vol]Ordered By: Pete Thakkar on 03-23-2023 Ketones (U) [Mass/Vol] Negative Negative [facility] Laboratory - UrinalysisOrder ed By: Pete Thakkar on 03-23-2023 Hyaline casts LM Ql (Urine sed) None seen [LPF] 0-8 [facility] Leukocytes [#/volume] correc jun for nucleated erythrocytes in Blood by Automated counOrdered By: Pete Thakkar on 03-23-2023 WBC corrected for nucl RBC Auto (Bld) [#/Vol] 6.3 10*3/uL 3.8-11.6 [facility] Lipaseon 03-23-2023 Lipase [Catalytic activity/Vol] 32.0 U/L Normal 11.0-82.0 [facility] Comment on above: Result Comment: PERF ORMED BY: [place] [address] PATHOLOGIST ASSEMBLER CLIP ON SUNGLASSES ROOSEVELT KEYES M.D. Performed By: #### H EPATIC, CBC, BMP, LIPASE #### [address] Lipase [Enzymatic activity/v olume] in Serum or PlasmaOrdered By: Pete Thakkar on 03-23-2023 Lipase [Catalytic activity/Vol] 32.0 U/L 11.0-82.0 [facility] Lymphocytes Auto (Bld) [#/Vo l]Ordered By: Pete Thakkar on 03-23-2023 Lymphocytes (Bld) [#/Vol] 2.3 10*3/uL 1.00-4.8 [facility] Lymphocytes/100 WBC Auto (Bl d)Ordered By: Pete Thakkar on 03-23-2023 Lymphocytes/100 WBC (Bld) 36.1 % . [facility] MCH Auto (RBC) [Entitic mass ]Ordered By: Pete Thakkar on 03-23-2023 MCH (RBC) [Entitic mass] 29.2 pg 24.7-34.3 [facility] MCHC Auto (RBC) [Mass/Vol]Or dered By: Pete Thakkar on 03-23-2023 MCHC (RBC) [Mass/Vol] 33.7 g/dL 32.0-35.0 [facility] MCV Auto (RBC) [Entitic vol] Ordered By: Pete Thakkar on 03-23-2023 MCV (RBC) [Entitic vol] 86.7 fL 80-100 [facility] Monocyte distribution width [Entitic volume] in Blood by AutomatedOrdered By: Pete Thakkar on 03-23-2023 Monocyte distribution width Auto (Bld) [Entitic vol] 16.44 % 0.00-20.00 [facility] Monocytes Auto (Bld) [#/Vol] Ordered By: Pete Thakkar on 03-23-2023 Monocytes (Bld) [#/Vol] 0.5 10*3/uL 0.0-0.8 [facility] Monocytes/100 WBC Auto (Bld) Ordered By: Pete Thakkar on 03-23-2023 Monocytes/100 WBC (Bld) 7.7 % . [facility] Neutrophils Auto (Bld) [#/Vo l]Ordered By: Pete Thakkar on 03-23-2023 Neutrophils (Bld) [#/Vol] 3.2 10*3/uL 1.8-7.7 [facility] Neutrophils/100 WBC Auto (Bl d)Ordered By: Pete Thakkar on 03-23-2023 Neutrophils/100 WBC (Bld) 50.2 % . [facility] Nitrite Test strip Ql (U)Ord ered By: Pete Thakkar on 03-23-2023 Nitrite Ql (U) Negative Negative [facility] No Panel InformationOrdered By: Pete Thakkar on 03-23-2023 Estimated GFR (CKD-EPI) > 60.0 mL/Min [facility] Creatinine Clearance (Chem 105.27 [facility] Nucleated erythrocytes [Pres ence] in Blood by Automated countOrdered By: Pete Thakkar on 03-23-2023 Nucleated RBC Auto Ql (Bld) 0.1 /100{WBC} 0-0.5 [facility] Platelet mean volume Auto (B ld) [Entitic vol]Ordered By: Pete Thakkar on 03-23-2023 Platelet mean volume (Bld) [Entitic vol] 7.6 fL 6.3-10.7 [facility] Platelets Auto (Bld) [#/Vol] Ordered By: Pete Thakkar on 03-23-2023 Platelets (Bld) [#/Vol] 357 10*3/uL 150-450 [facility] Potassium [Moles/volume] in Serum or PlasmaOrdered By: Pete Thakkar on 03-23-2023 Potassium [Moles/Vol] 3.6 mmol/L 3.5-5.1 [facility] Protein Auto test strip (U) [Mass/Vol]Ordered By: Pete Thakkar on 03-23-2023 Protein (U) [Mass/Vol] Negative Negative [facility] Protein [Mass/volume] in Ser um or PlasmaOrdered By: Pete Thakkar on 03-23-2023 Protein [Mass/Vol] 7.0 g/dL 6.4-8.9 [facility] RBC Auto (Bld) [#/Vol]Ordere d By: Pete Thakkar on 03-23-2023 RBC (Bld) [#/Vol] 4.12 10*6/uL 3.60-5.00 [facility] Serum or plasma albumin/glob ulin mass ratioOrdered By: Pete Thakkar on 03-23-2023 Albumin/Globulin [Mass ratio] 1.4 {ratio} [facility] Serum or plasma anion gap de terminationOrdered By: Pete Thakkar on 03-23-2023 Anion gap [Moles/Vol] 10.1 mmol/L 6.0-15.0 [facility] Serum or plasma non-glucuron idated bilirubin measurement (mass/volume)Ordered By: Pete Thakkar on 03-23-2023 Bilirubin.indirect [Mass/Vol] 0.2 mg/dL [facility] Sodium [Moles/volume] in Ser um or PlasmaOrdered By: Pete Thakkar on 03-23-2023 Sodium [Moles/Vol] 142 mmol/L 136-145 [facility] Specific gravity Auto test s trip (U) [Rel density]Ordered By: Pete Thakkar on 03-23-2023 Specific gravity (U) [Rel density] 1.048 1.001-1.030 [facility] Squamous epithelial cells de tection in urine sediment by light microscopyOrdered By: Pete Thakkar on 03-23-2023 Epithelial cells.squamous LM Ql (Urine sed) None seen [HPF] 0-2 [facility] Troponin I High Sensitivityo n 03-23-2023 Troponin I High Sensitivity 12.2 pg/mL Normal 0.0-15.0 [facility] Comment on above: Result Comment: PERF ORMED BY: [place] [address] PATHOLOGIST ASSEMBLER CLIP ON SUNGLASSES ROOSEVELT KEYES M.D. Performed By: #### H S TROP #### [address] Troponin I.cardiac [Mass/vol ume] in Serum or Plasma by Detection limit <= 0.01 ng/Ordered By: Pete Thakkar on 03-23-2023 Troponin I.cardiac DL <= 0.01 ng/mL [Mass/Vol] 12.2 pg/mL 0.0-15.0 [facility] Urea nitrogen [Mass/volume] in Serum or PlasmaOrdered By: Pete Thakkar on 03-23-2023 Urea nitrogen [Mass/Vol] 24 mg/dL 7-25 [facility] Urine bacteria detection by automated methodOrdered By: Pete Thakkar on 03-23-2023 Bacteria Auto Ql (U) 1+ None Seen [facility] Urine clarity by refractomet ry automatedOrdered By: Pete Thakkar on 03-23-2023 Clarity Refractometry automated (U) Clear Clear [facility] Urine glucose measurement by automated test strip (mass/volume)Ordered By: Pete Thakkar on 03-23-2023 Glucose Auto test strip (U) [Mass/Vol] Normal mg/dL Normal [facility] Urine hemoglobin detection b y automated test stripOrdered By: Pete Thakkar on 03-23-2023 Hemoglobin Auto test strip Ql (U) Trace Negative [facility] Urine leukocyte esterase det ection by automated test stripOrdered By: Pete Thakkar on 03-23-2023 Leukocyte esterase Auto test strip Ql (U) Negative Negative [facility] Urobilinogen Auto test strip (U) [Mass/Vol]Ordered By: Pete Thakkar on 03-23-2023 Urobilinogen (U) [Mass/Vol] Normal mg/dL Normal [facility] WBC Auto (Bld) [#/Vol]Ordere d By: Pete Thakkar on 03-23-2023 WBC (Bld) [#/Vol] 6.3 10*3/uL 3.8-11.6 [facility] pH Auto test strip (U)Ordere d By: Pete Thakkar on 03-23-2023 pH (U) 5.0 [pH] 5.0-9.0 [facility] Discharge Instructionson Discharge Instructions [id number]#1.00CD:127 [facility] Comment on above: Other Comment: wrong folder Prescriptions/Work Noteson 0 03-03-2023 Prescriptions/Work Notes [id number]#1.00CD:127 [facility] Consent for Treatmenton 02-03 Consent for Treatment [id number]#1.00CD:127 [facility] Discharge Instructionson Discharge Instructions [id number]#1.00CD:127 [facility] ED Clinical Summaryon 2022 ED Clinical Summary (Inserted Image. Kristin ble to display) [address] [address] ED Clinical Summary Person Information Name: CONSTANTINO CARDOSO [place] Age: 52 Years : 1970 Sex: Female Language: Yi PCP: JUDI YOUSSEF CNP Marital Status: Phone: [phone] MRN: Visit Id: Visit Reason: Wrist pain-swelling; WRIST PAIN Speciality: Acuity: 4 Enc Type: Emergency Med Service: Emergency Arrival: 02/19/2023 00:48:45 Discharge: 02/19/2023 01:41:10 LOS: 000 00:53 Checkin: 02/19/2023 00:48:45 Checkout: 02/19/2023 01:41:10 Dispo Type: Home (Routine DC) EVENTS: Event Name Event Status Request Date/Time Start Date/Time Complete Date/Time Arrive Complete 02/19/2023 00:48:45 02/19/2023 00:48:45 02/19/2023 00:48:45 Document Home Meds Request 02/19/2023 00:48:45 Triage Complete 02/19/2023 00:48:45 02/19/2023 00:56:50 02/19/2023 00:56:50 Dr Exam Complete 02/19/2023 00:51:58 02/19/2023 00:51:58 02/19/2023 00:51:58 Registration Complete 02/19/2023 00:51:58 02/19/2023 00:57:58 02/19/2023 00:58:24 Isolation Screening Request 02/19/2023 00:56:50 Bed Assign Complete 02/19/2023 00:57:58 02/19/2023 00:57:58 02/19/2023 00:57:58 RN Exam Complete 02/19/2023 00:57:58 02/19/2023 01:06:03 02/19/2023 01:06:03 Reg Complete Request 02/19/2023 00:58:24 Reg Bed Request Complete 02/19/2023 00:58:24 02/19/2023 00:58:24 02/19/2023 00:58:24 X-Ray Complete 02/19/2023 01:01:32 02/19/2023 01:02:06 02/19/2023 01:19:17 Meds Admin Complete 02/19/2023 01:01:32 02/19/2023 01:11:22 Wet Read Request 02/19/2023 01:19:17 Meds Admin Complete 02/19/2023 01:21:30 02/19/2023 01:40:26 Discharge Complete 02/19/2023 01:22:38 02/19/2023 01:41:17 02/19/2023 01:41:17 Transfer Complete 02/19/2023 01:41:18 02/19/2023 01:41:18 02/19/2023 01:41:18 ADDRESS: [address] [facility] [id number] PHYS DOC NOTES: MEDICAL INFORMATION: Prescriptions Given: New Medications [id number], [address], [place] [id number], [phone] naproxen (Naprosyn 500 mg Tab) 1 Tablets By Mouth 2 times a day as needed for pain. Refills: 0. Medications to Continue with No Changes Other Medications acetaminophen (Tylenol 325 mg Tab) 1 Tablets By Mouth every 4 hours as needed Pain. albuterol (albuterol HFA 90 mcg/inh MDI) 2 Puffs Inhalation every 4 hours as needed as needed for Shortness of breath or wheezing. APAP/butalbital/caffeine (APAP/butalbital/caffeine 325 mg-50 mg-40 mg Tab) 1 Tablets By Mouth every 12 hours as needed as needed for headache. as needed. budesonide-formoterol (Symbicort 160/4.5 inhalation aerosol with adapter) 2 Puffs Inhalation 2 times a day. dicyclomine (Bentyl 10 mg Cap) 2 Capsules By Mouth 4 times a day. Refills: 0. metoclopramide (Reglan 10 mg Tab) 1 Tablets By Mouth 3 times a day. Refills: 0. metoclopramide (Reglan 10 mg Tab) 1 Tablets By Mouth 4 times a day. Refills: 0. ondansetron (Zofran 4 mg Tab) 1 Tablets By Mouth every 8 hours. Refills: 1. ondansetron (Zofran ODT 4 mg Tab-Dis) 1 Tablets By Mouth every 6 hours as needed Nausea/Vomiting. Refills: 0. PATIENT EDUCATION INFORMATION: Instructions: Wrist Sprain, Adult Follow up: With: Address: When: JUDI YOUSSEF [address] [facility] [place] [phone] Business (1) In 3 days 02/22/2023 Comments: Take the pain medication as prescribed as needed for pain. Please follow-up with your primary care doctor in the next 2 to 3 days for further evaluation management. Please return to the ED for any new or worsening symptoms or DIAGNOSIS: Right wrist sprain [facility] ED Note-Physicianon 02-20-20 ED Note-Physician Basic Information Time Seen: Zabrina Patton DO 02/19/2023 00:51 Chief Complaint states fell yesterday injuring right wrist. was seen at [place]. splint in place. states pain radiating up the arm. taking motrin and tylenol History of Present Illness Patient is a 52-year-old female with past medical history of hypertension gastroparesis presenting to the ED for evaluation of right arm pain. Patient had a fall yesterday was seen at [place] had x-rays and was told it was sprain. Patient was placed in a splint discharged home. Patient's been taking Motrin and Tylenol home with minimal improvement of her symptoms. Patient denies any new falls or trauma. Patient states the pain goes from her wrist all the way up her arm. Denies hitting her head, loss of consciousness Review of Systems A 10 point review of systems is negative except as noted above. Medical and Surgical History: Reviewed and noted Social history: Lives at home Tobacco: Denies Physical Exam Vitals & Measurements T: 36.1 ?C(Tympanic) HR: 75(Peripheral) RR: 16 BP: 153/99 SpO2: 98% HT: 170 cm WT: 90.2 kg BMI: 31.21 General: Well developed, non toxic appearing, no acute distress HEENT: Head atraumatic, Mucosa moist, hearing grossly normal Neck: No JVD, tracheal deviation Cardiac: Regular rate, rhythm, no murmurs, or gallops, 2+ radial pulses Respiratory: Lungs clear to auscultation B/L, normal respiratory effort Extremities: Tenderness palpation of the right wrist, no obvious deformity noted, no significant edema, neurovascularly intact, tender to palpation of the forearm in addition to the elbow Neurologic: Alert and oriented, speech clear Skin: No rashes or lesions Psych: Appropriate mood and behavior Medical Decision Making MEDICAL DECISION MAKING Number and Complexity of Problems Differential Diagnosis: [] [facility] Data External documents reviewed: [] My EKG interpretation: [] My CT interpretation: [] My X-ray interpretation: [] My Ultrasound interpretation: [] Decision rules/scores evaluated: [] Discussed with: [] Treatment and Disposition ED Course: Patient is a 52-year-old female presenting to the ED for evaluation of right arm pain. Patient nontoxic-appearing on arrival, no acute distress. X-ray of the wrist and elbow are obtained. Patient is given Bardwell in the ED for pain. X-rays do not reveal any acute fractures. Patient is given a short course of pain medication for home. She is to follow-up with her primary care doctor in the next 2 to 3 days. She is return to the ED for any new or worsening symptoms. Shared decision making: [] Code status: [] Assessment/Plan Right wrist sprain (S63.501A: Unspecified sprain of right wrist, initial encounter) Orders: acetaminophen-hydrocodone, 1 tab(s), Tab, Oral, Once, Stop date 02/19/23 1:01:00 EDT, STAT, Start date 02/19/23 1:01:00 EDT acetaminophen-hydrocodone, 1 EA, Tab, Oral, Once, Stop date 02/19/23 1:21:00 EDT, STAT, Start date 02/19/23 1:21:00 EDT naproxen, 500 mg = 1 tab(s), Oral, BID, PRN for pain, # 20 tab(s), Refills(s) 0, Pharmacy: [id number], 170, cm, 02/19/23 0:56:00 EDT, Height/Length Dosing, 90.2, kg, 02/19/23 0:56:00 EDT, Weight Dosing XR Elbow 3+ Views Right XR Wrist 3+ Views Right Medications Administered Given Bardwell 5/325 Tab, 1 tab(s), Oral Disposition Plan Discharge Prescription List Prescriptions Naprosyn 500 mg Tab, 500 mg= 1 tab(s), Oral, BID, PRN Follow-up With When Contact Information JUDI YOUSSEF In 3 days 02/22/2023 EDT [address] [place] [phone] Business (1) Additional Instructions: Take the pain medication as prescribed as needed for pain. Please follow-up with your primary care doctor in the next 2 to 3 days for further evaluation management. Please return to the ED for any new or worsening symptoms or Patient Education Wrist Sprain, Adult Problem List/Past Medical History Ongoing Acid reflux Arthritis Back pain Pearce esophagus BMI 26.0-26.9,adult Constipation Dark stools Diarrhea Epigastric pain Foreign body in stomach, sequela Gallstone Gastric bezoar Gastroparesis Hard stool Heartburn Hernia, hiatal High blood pressure Hx of urinary tract infection Irregular bowel habits Kidney stones Migraines Nausea Nausea and vomiting Other post-traumatic urethral stricture, female Proteinuria Seizures Stomach pain Urinary urgency Historical Mitral valve prolapse Procedure/Surgical History Esophagogastroduodenoscopy (01/11/2022), Esophagogastroduodenoscopy (05/13/2021), Esophagogastroduodenoscopy (09/30/2020), Colonoscopy (03/13/2020), Esophagogastroduodenoscopy (01/30/2020), Colonoscopy (05/17/2019), Esophagogastroduodenoscopy (05/17/2019), Hernia surgical mesh (03/02/2019), Cholecystectomy, Hernia repair, Hysterectomy. Medications Inpatient Bardwell 5/325 Tab, 1 tab(s), Oral, Once Home albuterol HFA 90 mcg/inh MDI, 2 pu (more content not included)... [facility] Comment on above: Result Comment: Elec tronically Signed By: Zabrina Patton DO\.br\Date and Time Signed: 02/19/23 01:23 EDT ED Patient Education Noteon 02-19-2023 ED Patient Education Note Orthopedics Wrist Sprain, Adult A wrist sprain is a stretch or tear in the strong tissues that connect the wrist bones to each other. These strong tissues are called ligaments. There are three types of wrist sprains: ? Grade 1. The ligament is stretched more than normal. There may be a minor amount of wrist pain. ? Grade 2. The ligament is partially torn. You may be able to move your wrist, but not very much. There may be a moderate amount of wrist pain. ? Grade 3. The ligament or ligaments are completely torn. You may find it difficult to move your wrist even a little. There may be a significant amount of wrist pain. What are the causes? This condition may be caused by using the wrist too much during sports, exercise, or work. It can also happen due to a fall or during an accident. What increases the risk? You are more likely to develop this condition if: ? You had a previous wrist or arm injury. ? You have poor wrist strength and flexibility. ? You play contact sports, such as football or soccer. ? You participate in sports that may result in a fall, such as skateboarding, biking, skiing, or snowboarding. ? You do not exercise regularly. ? You use exercise equipment that does not fit well. What are the signs or symptoms? Symptoms of this condition include: ? Pain in the wrist, arm, or hand. ? Swelling or bruised skin near the wrist, hand, or arm. The skin may look yellow or blue. ? Stiffness or trouble moving the hand. ? Hearing a noise, like a pop or a snap, at the time of injury, or feeling a tear at the time of the injury. ? A warm feeling in the skin around the wrist. How is this diagnosed? This condition is diagnosed with a physical exam. Sometimes an X-ray is taken to make sure a bone did not break. You may also have an MRI of your wrist to check for torn ligaments. How is this treated? This condition is treated by resting and applying ice to your wrist. Additional treatment may include: ? Taking medicine for pain and inflammation. ? Wearing a splint, brace, or cast for a short period of time to keep your wrist from moving (immobilized). ? Doing exercises to strengthen and stretch your wrist. ? Having surgery. This may be done if the ligament is completely torn. Follow these instructions at home: If you have a splint or brace: ? Wear the splint or brace as told by your health care provider. Remove it only as told by your health care provider. ? Loosen it if your fingers tingle, become numb, or turn cold and blue. ? Keep it clean. ? If the splint or brace is not waterproof: ? Do not let it get wet. ? Cover it with a watertight covering when you take a bath or a shower. If you have a cast: ? Do not put pressure on any part of the cast until it is fully hardened. This may take several hours. ? Do not stick anything inside the cast to scratch your skin. Doing that increases your risk of infection. ? Check the skin around the cast every day. Tell your health care provider about any concerns. ? You may put lotion on dry skin around the edges of the cast. Do not put lotion on the skin underneath the cast. ? Keep it clean. ? If the cast is not waterproof: ? Do not let it get wet. ? Cover it with a watertight covering when you take a bath or shower. Managing pain, stiffness, and swelling ? If directed, put ice on the injured area. To do this: ? If you have a removable splint or brace, remove it as told by your health care provider. ? Put ice in a plastic bag. ? Place a towel between your skin and the bag or between the splint or cast and the bag. ? Leave the ice on for 20 minutes, 2?3 times a day. ? Remove the ice if your skin turns bright red. This is very important. If you cannot feel pain, heat, or cold, you have a greater risk of damage to the area. ? Move your fingers often to reduce stiffness and swelling. ? Raise (elevate) the injured area above the level of your heart while you are sitting or lying down. Activity ? Rest your wrist as told by your health care provider. Do not do things that cause pain. ? Ask your health care provider when it is safe to drive if you have a splint, brace, or cast on your wrist. ? Do exercises as told by your health care provider. ? Return to your normal activities as told by your health care provider. Ask your health care provider what activities are safe for you. General instructions ? Take tuqm-jby-jgaznle and prescription medicines only as told by your health care provider. ? Do not use any products that contain nicotine or tobacco, such as cigarettes, e-cigarettes, and chewing tobacco. These can delay healing. If you need help quitting, ask your health care provider. ? Keep all follow-up visits. This is important. Contact a health care provider if: ? Your pain, bruising, or swelling gets worse. ? Your skin becomes red, gets a rash, or has open sores. ? Your pain does not get better or it gets (more content not included)... [facility] ED Patient Summaryon 023 ED Patient Summary (Inserted Image. Kristin ble to display) [address] [address] Patient Discharge Instructions Person Information Name: CONSTANTINO CARDOSO Age: 52 Years Arrival Date: 02/19/2023 00:48:45 Discharge Diagnosis: Right wrist sprain Primary Care Physician: JUDI YOUSSEF CNP Provider Information Primary Provider: Zabrina Patton DO Advanced Ham Trimmer:None The exam and treatment you received in the Emergency Department were for an urgent problem and are not intended as complete care. It is important that you follow up with a doctor, nurse practitioner, or physician?s zoning assistant for ongoing care. If your symptoms become worse or you do not improve as expected and you are unable to reach your usual health care provider, you should return to the Emergency Department. We are available 24 hours a day. CONSTANTINO CARDOSO has been given the following list of patient education materials, prescriptions and follow-up instructions: Follow-up Instructions: With: Address: When: JUDI YOUSSEF [address] [facility] [place] [address] [phone] Business (1) In 3 days 02/22/2023 Comments: Take the pain medication as prescribed as needed for pain. Please follow-up with your primary care doctor in the next 2 to 3 days for further evaluation management. Please return to the ED for any new or worsening symptoms or In the event that this physician does not participate in your insurance network, please consult with your insurance company to find a nearby participating provider. Patient Education Materials: Wrist Sprain, Adult A MESSAGE TO ALL PATIENTS REGARDING OPIOIDS PRESCRIPTION OPIOIDS: WHAT YOU NEED TO KNOW Prescription opioids can be used to help relieve ucgzczqn-pd-dnpdun pain and are often prescribed following a surgery or injury, or for certain health conditions. These medications can be an important part of the treatment but also come with serious risks. It is important to work with your healthcare provider to make sure you are getting the safest, most effective care. WHAT ARE THE RISKS AND SIDE EFFECTS OF OPIOID USE? Prescription opioids carry serious risks of addiction and overdose, especially with prolonged use. An opioid overdose, often marked by slowed breathing, can cause sudden . The use of prescription opioids can have a number of side effects as well, even when taken as directed: ? Tolerance?meaning you might need to take more of the medication for the same pain relief ? Physical dependence?meaning you have symptoms of withdrawal when a medication is stopped ? Increased sensitivity to pain ? Constipation ? Nausea, vomiting, and dry mouth ? Sleepiness and dizziness ? Confusion ? Depression ? Low levels of testosterone that can result in lower sex drive, energy, and strength ? Itching and sweating RISKS ARE GREATER WITH: ? History of drug misuse, substance use disorder, or overdose ? Mental health conditions (such as depression or anxiety) ? Sleep apnea ? Older age (65 years and older) ? Avoid alcohol while taking prescription opioids. Also, unless specifically advised by your health care provider, medications to avoid include: ? Benzodiazepines (such as Xanax or Valium) ? Muscle relaxants (such as Soma or Flexeril) ? Hypnotics (such as Ambien or Lunesta) ? Other prescription opioids KNOW YOUR OPTIONS Talk to your health care provider about ways to manage your pain that don?t involve prescription opioids. Some of these options may actually work better and have fewer risks and side effects. Options may include: ? Pain relievers such as acetaminophen, ibuprofen, and naproxen ? Some medication that are also used for depression or seizures ? Physical therapy and exercise ? Cognitive behavioral therapy, a psychological, goal-directed approach, in which patients learn how to modify physical, behavioral, and emotional triggers of pain and stress. IF YOU ARE PRESCRIBED OPIOIDS FOR PAIN: ? Never take opioids in greater amounts or more often than prescribed. ? Follow up with your primary health care provider. o Work together to create a plan on how to manage your pain. o Talk about ways to help manage your pain that don?t involve prescription opioids. o Talk about any and all concerns and side effects. ? Help prevent misuse and abuse o Never sell or share prescription opioids. o Never use another person?s prescription opioids. ? Store prescription opioids in a secure place and out of reach of others (this may include visitors, children, friends, and family). ? Safely dispose of unused prescription opioids: Find your community drug take-back program or your pharmacy mail-back program, or flush them down the toilet, following guidance from the Food and Drug Administration (www.fda.gov/Drugs/Resource sForYou). ? Visit www.cdc.gov/drugoverdose to learn about the ris (more content not included)... [facility] XR Elbow 3+ Views Righton XR Elbow 3+ Views Right Exam Date/Time: 02/19/2023 01:19 EDT Reason for Exam: Pain, Traumatic Report IMPRESSION: NO ACUTE OSSEOUS ABNORMALITY. EXAMINATION: XR Elbow 3+ Views Right HISTORY: Elbow pain after a fall COMPARISONS: None available TECHNIQUE: AP, lateral, oblique and radial head views of the elbow obtained. FINDINGS: No acute fracture or dislocation. No elbow joint effusion. Soft tissues are within normal limits. Ordering Provider: Zabrina Patton FINAL REPORT Dictated: 02/19/2023 7:45 am Orestes Bell DO Signed (Electronic Signature): 02/19/2023 7:45 am Signed by: Orestes Bell DO Transcribed by: REZA Technologist: FERNANDO Technical Comments Radiation Dose: Ka,r in mGy = na DAP = na [facility] XR Wrist 3+ Views Righton XR Wrist 3+ Views Right Exam Date/Time: 02/19/2023 01:19 EDT Reason for Exam: Pain, Traumatic Report IMPRESSION: NO ACUTE OSSEOUS ABNORMALITY. EXAM: XR Wrist 3+ Views Right HISTORY: Wrist pain after a fall COMPARISON: None available TECHNIQUE: AP, lateral, oblique and scaphoid views of the wrist obtained. FINDINGS: No acute fracture or dislocation. Carpal and radiocarpal alignment is satisfactory. Soft tissues are within normal limits. Ordering Provider: Zabrina Patton FINAL REPORT Dictated: 02/19/2023 7:45 am Orestes Bell DO Signed (Electronic Signature): 02/19/2023 7:45 am Signed by: Orestes Bell DO Transcribed by: REZA Technologist: FERNANDO Technical Comments Radiation Dose: Ka,r in mGy = na DAP = na [facility] Activated partial thrombopla stin time (aPTT) in platelet poor plasma by coagulation aOrdered By: Conner Griffith on 02-15-2023 aPTT Coag (PPP) [Time] 37.0 s 25.1-36.5 [facility] Alanine aminotransferase [En zymatic activity/volume] in Serum or PlasmaOrdered By: Conner Griffith on 02-15-2023 ALT [Catalytic activity/Vol] 13 U/L 7-52 [facility] Albumin [Mass/volume] in Ser um or Plasma by Bromocresol green (BCG) dye binding methoOrdered By: Conner Griffith on 02-15-2023 Albumin BCG dye [Mass/Vol] 4.3 g/dL 3.5-5.7 [facility] Alkaline phosphatase [Enzyma tic activity/volume] in Serum or PlasmaOrdered By: Conner Griffith on 02-15-2023 ALP [Catalytic activity/Vol] 124 U/L 34-104 [facility] Aspartate aminotransferase [ Enzymatic activity/volume] in Serum or PlasmaOrdered By: Conner Griffith on 02-15-2023 AST [Catalytic activity/Vol] 15 U/L 13-39 [facility] Basic Metabolic Panelon 02-03 Anion gap [Moles/Vol] 12.6 mmol/L Normal 6.0-15.0 [facility] Comment on above: Performed By: #### H EPATIC, CBC, BMP, LIPASE #### [facility] [address] Calcium [Mass/Vol] 9.3 mg/dL Normal 8.6-10.3 [facility] Comment on above: Performed By: #### H EPATIC, CBC, BMP, LIPASE #### [facility] [address] [place] [address] [place] Chloride [Moles/Vol] 106 mmol/L Normal 98-107 [facility] Comment on above: Performed By: #### H EPATIC, CBC, BMP, LIPASE #### [facility] [address] CO2 [Moles/Vol] 25.3 mmol/L Normal 21.0-31.0 [facility] Comment on above: Performed By: #### H EPATIC, CBC, BMP, LIPASE #### [facility] [address] Creatinine [Mass/Vol] 0.77 mg/dL Normal 0.60-1.20 [facility] Comment on above: Performed By: #### H EPATIC, CBC, BMP, LIPASE #### [address] Creatinine Clr Calc Pharmacy 98.01 [facility] Comment on above: Performed By: #### H EPATIC, CBC, BMP, LIPASE #### [place] [address] [place] GFR/1.73 sq M.predicted MDRD (S/P/Bld) [Vol rate/Area] mL/min/{1.73_m2} [facility] Comment on above: Performed By: #### H EPATIC, CBC, BMP, LIPASE #### [address] Glucose [Mass/Vol] 94 mg/dL Normal 70-100 [facility] Comment on above: Result Comment: [place] Glucose Reference Range is dependent on time and content of last meal. Glucose of more than 200 mg/dL in a nonstressed, ambulatory subject supports the diagnosis of Diabetes Mellitus. ADA recommended reference range Performed By: #### H EPATIC, CBC, BMP, LIPASE #### [facility] [address] Potassium [Moles/Vol] 3.9 mmol/L Normal 3.5-5.1 [facility] Comment on above: Performed By: #### H EPATIC, CBC, BMP, LIPASE #### [place] [address] [place] Sodium [Moles/Vol] 140 mmol/L Normal 136-145 [facility] Comment on above: Performed By: #### H EPATIC, CBC, BMP, LIPASE #### [facility] [address] Urea nitrogen [Mass/Vol] 14 mg/dL Normal 7-25 [facility] Comment on above: Performed By: #### H EPATIC, CBC, BMP, LIPASE #### [facility] [address] [place] [address] Basophils Auto (Bld) [#/Vol] Ordered By: Conner Griffith on 02-15-2023 Basophils (Bld) [#/Vol] 0.0 10*3/uL 0.0-0.2 [facility] Basophils/100 WBC Auto (Bld) Ordered By: Conner Griffith on 02-15-2023 Basophils/100 WBC (Bld) 0.6 % . [facility] Bilirubin.direct [Mass/volum e] in Serum or PlasmaOrdered By: Conner Griffith on 02-15-2023 Bilirubin.direct [Mass/Vol] 0.00 mg/dL 0.03-0.18 [facility] Comment on above: If the DBIL is less than 0.1, IBIL is not able to becalculated. Bilirubin.total [Mass/volume ] in Serum or PlasmaOrdered By: Conner Griffith on 02-15-2023 Bilirubin [Mass/Vol] 0.4 mg/dL 0.3-1.[address] [facility] CT abdomen pelvis w conon CT abdomen pelvis w con [facility] [place] [address] [place] [address] CT Scan Report Signed Patient: Constantino Cardoso MR#: [id number] : 1970 Acct:[id number] Age/Sex: 52 / F ADM Date: 02/15/23 Loc: ER Room: Type: [facility] ER Attending Dr: Copies to: Conner Griffith DO Ordering Provider: Conner Griffith DO Date of Service: 02/15/23 CT/CT abdomen pelvis w con: abd pain CT ABDOMEN AND PELVIS WITH CONTRAST COMPARISON: 10/26/2022 CLINICAL DATA: Abdominal pain and distention. Incontinence. Spiral images were obtained through the abdomen and pelvis following 90 mL of Isovue-300. This CT exam was performed using one or more following dose reduction techniques: Automated exposure control, adjustment of the mA and/or kV according to patient size, or use of iterative reconstruction technique. Limited cuts through the lung bases show minimal scarring or atelectasis. There is a small hiatal hernia and suspected postoperative changes of repair, similar to the prior. The gallbladder is surgically absent. That may be the etiology of common duct prominence. No intrahepatic masses are present. The spleen, pancreas and adrenal glands show no acute findings. There are bilateral symmetric renal nephrograms, without hydronephrosis. No ureteral dilatation or stones are present. The abdominal aorta is normal caliber. There are no enlarged lymph nodes or ascites. There is borderline prominence of the jejunal loops at the left upper quadrant. There is ascending and transverse colonic stool. The left colon is mostly decompressed. There is slight dextroscoliotic curvature. Images through the pelvis show no appendiceal inflammation. There are normal caliber small bowel loops. There is a small amount of rectosigmoid stool. No diverticular disease is identified. The urinary bladder shows no abnormalities for the degree of distention. The uterus is surgically absent. No ascites is present. CT/CT abdomen pelvis w con IMPRESSION: HIATAL HERNIA. CONTINUED COMMON DUCT PROMINENCE THAT IS PROBABLY SECONDARY TO PREVIOUS CHOLECYSTECTOMY. NO BOWEL OR URINARY TRACT OBSTRUCTION. NO ACUTE FINDINGS. Impression dictated by: Columba Domínguez M.D.02/15/2023 9:56 AM Dictation Location: [place] [address] Transcribed By: [facility] 02/15/23 0956 Dictated By: Columba Domínguez MD 02/15/23 0943 Signed By: 02/15/23 0956 [facility] Calcium [Mass/volume] in Ser um or PlasmaOrdered By: Conner Griffith on 02-15-2023 Calcium [Mass/Vol] 9.3 mg/dL 8.6-10.3 [facility] Carbon dioxide, total [Moles /volume] in Serum or PlasmaOrdered By: Conner Griffith on 02-15-2023 CO2 [Moles/Vol] 25.3 mmol/L 21.0-31.0 [facility] Chloride [Moles/volume] in S cristine or PlasmaOrdered By: Conner Griffith on 02-15-2023 Chloride [Moles/Vol] 106 mmol/L 98-107 [facility] Complete Blood Count Auto Di ffon 02-15-2023 Basophils (Bld) [#/Vol] 0.0 10*3/uL Normal 0.0-0.2 [facility] Comment on above: Result Comment: PERF ORMED BY: [place] [address] PATHOLOGIST ASSEMBLER CLIP ON SUNGLASSES ROOSEVELT KEYES M.D. Performed By: #### P ORS #### [address] Basophils/100 WBC (Bld) 0.6 % Normal . [facility] Comment on above: Performed By: #### P ORS #### [address] Eosinophils (Bld) [#/Vol] 0.2 10*3/uL Normal 0.0-0.45 [facility] Comment on above: Performed By: #### P ORS #### [address] Eosinophils/100 WBC (Bld) 4.0 % Normal . [facility] Comment on above: Performed By: #### P ORS #### [address] Erythrocyte distribution width (RBC) [Ratio] 13.5 % Normal 11.9-15.3 [facility] Comment on above: Performed By: #### P ORS #### [address] Hematocrit (Bld) [Volume fraction] 38.4 % Normal 34.0-46.4 [facility] Comment on above: Performed By: #### P ORS #### [address] Hemoglobin (Bld) [Mass/Vol] 13.0 g/dL Normal 11.8-15.4 [facility] Comment on above: Performed By: #### P ORS #### [facility] [address] Lymphocytes (Bld) [#/Vol] 1.8 10*3/uL Normal 1.00-4.8 [facility] Comment on above: Performed By: #### P ORS #### [address] Lymphocytes/100 WBC (Bld) 33.8 % Normal . [facility] Comment on above: Performed By: #### P ORS #### [address] MCH (RBC) [Entitic mass] 29.4 pg Normal 24.7-34.3 [facility] Comment on above: Performed By: #### P ORS #### [address] MCV (RBC) [Entitic vol] 86.8 fL Normal 80-100 [facility] Comment on above: Performed By: #### P ORS #### [address] Mean Corpuscular HGB Conc 33.8 g/dL Normal 32.0-35.0 [facility] Comment on above: Performed By: #### P ORS #### [address] Monocytes (Bld) [#/Vol] 0.3 10*3/uL Normal 0.0-0.8 [facility] Comment on above: Performed By: #### P ORS #### [address] Monocytes/100 WBC (Bld) 18.21 % Normal 0.00-20.00 [facility] Comment on above: Performed By: #### P ORS #### [address] Monocytes/100 WBC (Bld) 4.8 % Normal . [facility] Comment on above: Performed By: #### P ORS #### [address] Neutrophils (Bld) [#/Vol] 3.0 10*3/uL Normal 1.8-7.7 [facility] Comment on above: Performed By: #### P ORS #### [address] Neutrophils/100 WBC (Bld) 56.8 % Normal . [facility] Comment on above: Performed By: #### P ORS #### [address] NRBC% 0.2 /100{WBC} Normal 0-0.5 [facility] Comment on above: Performed By: #### P ORS #### [address] Platelet mean volume (Bld) [Entitic vol] 7.3 fL Normal 6.3-10.7 [facility] Comment on above: Performed By: #### P ORS #### [address] Platelets (Bld) [#/Vol] 385 10*3/uL Normal 150-450 [facility] Comment on above: Performed By: #### P ORS #### [address] RBC (Bld) [#/Vol] 4.43 10*6/uL Normal 3.60-5.00 [facility] Comment on above: Performed By: #### P ORS #### [address] WBC (Bld) [#/Vol] 5.2 10*3/uL Normal 3.8-11.6 [facility] Comment on above: Performed By: #### P ORS #### [address] Creatinine [Mass/volume] in Serum or PlasmaOrdered By: Conner Griffith on 02-15-2023 Creatinine [Mass/Vol] 0.77 mg/dL 0.60-1.20 [facility] Eosinophils Auto (Bld) [#/Vo l]Ordered By: Conner Griffith on 02-15-2023 Eosinophils (Bld) [#/Vol] 0.2 10*3/uL 0.0-0.45 [facility] Eosinophils/100 WBC Auto (Bl d)Ordered By: Conner Griffith on 02-15-2023 Eosinophils/100 WBC (Bld) 4.0 % . [facility] Erythrocyte distribution wid th Auto (RBC) [Ratio]Ordered By: Conner Griffith on 02-15-2023 Erythrocyte distribution width (RBC) [Ratio] 13.5 % 11.9-15.3 [facility] Globulin Calc (S) [Mass/Vol] Ordered By: Conner Griffith on 02-15-2023 Globulin (S) [Mass/Vol] 3.0 g/dL [facility] Glucose [Mass/volume] in Ser um or PlasmaOrdered By: Conner Griffith on 02-15-2023 Glucose [Mass/Vol] 94 mg/dL 70-100 [facility] Comment on above: ADA recommended refe rence rangeRandom Glucose Reference Range is dependent on time and content of last meal. Glucose of more than 200 mg/dL in a nonstressed, ambulatory subject supports the diagnosis of Diabetes Mellitus. Hematocrit Auto (Bld) [Volum e fraction]Ordered By: Conner Griffith on 02-15-2023 Hematocrit (Bld) [Volume fraction] 38.4 % 34.0-46.4 [facility] Hemoglobin [Mass/volume] in BloodOrdered By: Conner Griffith on 02-15-2023 Hemoglobin (Bld) [Mass/Vol] 13.0 g/dL 11.8-15.4 [facility] Hepatic Panelon 02-15-2023 Albumin [Mass/Vol] 4.3 g/dL Normal 3.5-5.7 [facility] Comment on above: Performed By: #### P ORS #### [facility] [address] [place] [address] [facility] Albumin/Globulin [Mass ratio] 1.4 {ratio} Normal [facility] Comment on above: Performed By: #### P ORS #### [facility] [address] [place] [address] ALP [Catalytic activity/Vol] 124 U/L High 34-104 [facility] Comment on above: Performed By: #### P ORS #### [address] ALT [Catalytic activity/Vol] 13 U/L Normal 7-52 [facility] Comment on above: Performed By: #### P ORS #### [address] AST [Catalytic activity/Vol] 15 U/L Normal 13-39 [facility] Comment on above: Performed By: #### P ORS #### [address] Bilirubin [Mass/Vol] 0.4 mg/dL Normal 0.3-1.0 [facility] Comment on above: Performed By: #### P ORS #### [address] Bilirubin,Indirect 0.4 mg/dL Normal [facility] Comment on above: Performed By: #### P ORS #### [address] Bilirubin.indirect [Mass/Vol] 0.00 mg/dL Low 0.03-0.18 [facility] Comment on above: Result Comment: If t he DBIL is less than 0.1, IBIL is not able to be calculated. Performed By: #### P ORS #### [address] Globulin (S) [Mass/Vol] 3.0 g/dL Normal [facility] Comment on above: Performed By: #### P ORS #### [address] Protein [Mass/Vol] 7.3 g/dL Normal 6.4-8.9 [facility] Comment on above: Performed By: #### P ORS #### [address] Laboratory - CoagulationOrde red By: Conner Griffith on 02-15-2023 PT Coag (PPP) [Time] 11.7 s 9.0-12.9 [facility] Leukocytes [#/volume] correc jun for nucleated erythrocytes in Blood by Automated counOrdered By: Conner Griffith on 02-15-2023 WBC corrected for nucl RBC Auto (Bld) [#/Vol] 5.2 10*3/uL 3.8-11.6 [facility] Lipaseon 02-15-2023 Lipase [Catalytic activity/Vol] 19.0 U/L Normal 11.0-82.0 [facility] Comment on above: Result Comment: PERF ORMED BY: [place] [address] PATHOLOGIST ASSEMBLER CLIP ON SUNGLASSES ROOSEVELT KEYES M.D. Performed By: #### H EPATIC, CBC, BMP, LIPASE #### [address] Lipase [Enzymatic activity/v olume] in Serum or PlasmaOrdered By: Conner Griffith on 02-15-2023 Lipase [Catalytic activity/Vol] 19.0 U/L 11.0-82.0 [facility] Lymphocytes Auto (Bld) [#/Vo l]Ordered By: Conner Griffith on 02-15-2023 Lymphocytes (Bld) [#/Vol] 1.8 10*3/uL 1.00-4.8 [facility] Lymphocytes/100 WBC Auto (Bl d)Ordered By: Conner Griffith on 02-15-2023 Lymphocytes/100 WBC (Bld) 33.8 % . [facility] MCH Auto (RBC) [Entitic mass ]Ordered By: Conner Griffith on 02-15-2023 MCH (RBC) [Entitic mass] 29.4 pg 24.7-34.3 [facility] MCHC Auto (RBC) [Mass/Vol]Or dered By: Conner Griffith on 02-15-2023 MCHC (RBC) [Mass/Vol] 33.8 g/dL 32.0-35.0 [facility] MCV Auto (RBC) [Entitic vol] Ordered By: Conner Griffith on 02-15-2023 MCV (RBC) [Entitic vol] 86.8 fL 80-100 [facility] Monocyte distribution width [Entitic volume] in Blood by AutomatedOrdered By: Conner Griffith on 02-15-2023 Monocyte distribution width Auto (Bld) [Entitic vol] 18.21 % 0.00-20.00 [facility] Monocytes Auto (Bld) [#/Vol] Ordered By: Conner Griffith on 02-15-2023 Monocytes (Bld) [#/Vol] 0.3 10*3/uL 0.0-0.8 [facility] Monocytes/100 WBC Auto (Bld) Ordered By: Conner Griffith on 02-15-2023 Monocytes/100 WBC (Bld) 4.8 % . [facility] Neutrophils Auto (Bld) [#/Vo l]Ordered By: Conner Griffith on 02-15-2023 Neutrophils (Bld) [#/Vol] 3.0 10*3/uL 1.8-7.7 [facility] Neutrophils/100 WBC Auto (Bl d)Ordered By: Conner Griffith on 02-15-2023 Neutrophils/100 WBC (Bld) 56.8 % . [facility] No Panel InformationOrdered By: Conner Griffith on 02-15-2023 Estimated GFR (CKD-EPI) > 60.0 mL/Min [facility] Creatinine Clearance (Chem 98.01 [facility] Nucleated erythrocytes [Pres ence] in Blood by Automated countOrdered By: Conner Griffith on 02-15-2023 Nucleated RBC Auto Ql (Bld) 0.2 /100{WBC} 0-0.5 [facility] Partial Thromboplastin Timeo n 02-15-2023 aPTT Coag (Bld) [Time] 37.0 s High 25.1-36.5 [facility] Comment on above: Result Comment: PERF ORMED BY: [place] [address] PATHOLOGIST ASSEMBLER CLIP ON SUNGLASS[employer] ROOSEVELT KEYES M.D. Performed By: #### P ORS #### [address] Platelet mean volume Auto (B ld) [Entitic vol]Ordered By: Conner Griffith on 02-15-2023 Platelet mean volume (Bld) [Entitic vol] 7.3 fL 6.3-10.7 [facility] Platelet poor plasma interna tional normalized ratio (INR) by coagulation assay (relatOrdered By: Conner Griffith on 02-15-2023 INR Coag (PPP) [Relative time] 1.0 {INR} [facility] Comment on above: INR Therapeutic Rang e A) Pre- and Peroperative OAT started two weeks before surgery. NOT HIP SURGERY: 1.5 - 2.5 HIP SURGERY: 2 - 3B) Primary and secondary prevention of venous THROMBOSIS: 2 - 3C) Active venous thrombosis, pulmonary embolismand prevention of recurrent venous thrombosis: 2 - 3D) Prevention of arterial thromboembolismincluding patients with mechanical heart valves: 3 - 4.5 Platelets Auto (Bld) [#/Vol] Ordered By: Conner Griffith on 02-15-2023 Platelets (Bld) [#/Vol] 385 10*3/uL 150-450 [facility] Potassium [Moles/volume] in Serum or PlasmaOrdered By: Conner Griffith on 02-15-2023 Potassium [Moles/Vol] 3.9 mmol/L 3.5-5.1 [facility] Protein [Mass/volume] in Ser um or PlasmaOrdered By: Conner Griffith on 02-15-2023 Protein [Mass/Vol] 7.3 g/dL 6.4-8.9 [facility] Prothrombin Time INRon 02-15 INR Coag (PPP) [Relative time] 1.0 {INR} Normal [facility] Comment on above: Result Comment: INR Therapeutic Range A) Pre- and Peroperative OAT started two weeks before surgery. NOT HIP SURGERY: 1.5 - 2.5 HIP SURGERY: 2 - 3 B) Primary and secondary prevention of venous THROMBOSIS: 2 - 3 C) Active venous thrombosis, pulmonary embolism and prevention of recurrent venous thrombosis: 2 - 3 D) Prevention of arterial thromboembolism including patients with mechanical heart valves: 3 - 4.5 Performed By: #### P ORS #### [address] PT Coag (PPP) [Time] 11.7 s Normal 9.0-12.9 [facility] Comment on above: Performed By: #### P ORS #### [facility] [address] RBC Auto (Bld) [#/Vol]Ordere d By: Conner Griffith on 02-15-2023 RBC (Bld) [#/Vol] 4.43 10*6/uL 3.60-5.00 [facility] Serum or plasma albumin/glob ulin mass ratioOrdered By: Conner Griffith on 02-15-2023 Albumin/Globulin [Mass ratio] 1.4 {ratio} [facility] Serum or plasma anion gap de terminationOrdered By: Conner Griffith on 02-15-2023 Anion gap [Moles/Vol] 12.6 mmol/L 6.0-15.0 [facility] Serum or plasma non-glucuron idated bilirubin measurement (mass/volume)Ordered By: Conner Griffith on 02-15-2023 Bilirubin.indirect [Mass/Vol] 0.4 mg/dL [facility] Sodium [Moles/volume] in Ser um or PlasmaOrdered By: Conner Griffith on 02-15-2023 Sodium [Moles/Vol] 140 mmol/L 136-145 [facility] Urea nitrogen [Mass/volume] in Serum or PlasmaOrdered By: Conner Griffith on 02-15-2023 Urea nitrogen [Mass/Vol] 14 mg/dL 7-25 [facility] WBC Auto (Bld) [#/Vol]Ordere d By: Conner Griffith on 02-15-2023 WBC (Bld) [#/Vol] 5.2 10*3/uL 3.8-11.6 [facility] MG MAMM SCREEN 3D MACARIO CADon 11-30-2022 MG MAMM SCREEN 3D MACARIO CAD Normal [facility] ER URINE PROFILEon 3 Bilirubin Ql (U) Negative Normal NEGATIVE [facility] Comment on above: Performed By: #### E RUR ####[facility] [address] [place] [address]Dr. Tadeo Smyth Clarity (U) CLEAR Normal CLEAR [facility] Comment on above: Performed By: #### E RUR ####[facility] [address] [place], [place] [address]Dr. Tadeo Smyth Color (U) YELLOW Normal YELLOW [facility] Comment on above: Performed By: #### E RUR ####[facility] [address] [place], [place] [address]Dr. Tadeo Smyth ERUAHD A micrscopic examina tion will be performed if indicated. Normal [facility] Comment on above: Performed By: #### E RUR ####[facility] [id number] [place], [place] [address]Dr. Tadeo Smyth Glucose Ql (U) Negative Normal NEGATIVE [facility] Comment on above: Performed By: #### E RUR ####[facility] Cftfkhvlqg[address] [place], [place] [address]Dr. Tadeo Smyth Hemoglobin Ql (U) TRACE-INTACT Abnormal NEGATIVE [facility] Comment on above: Performed By: #### E RUR ####[facility] Womcivkhwq[address] [place], [place] [address]Dr. Tadeo Smyth Ketones Ql (U) Negative Normal NEGATIVE [facility] Comment on above: Performed By: #### E RUR ####[facility] K[address]tccpa[address] [place], [place] [address]Dr. Tadeo Smyth LEUKOCYTES Negative Normal NEGATIVE [facility] Comment on above: Performed By: #### E RUR ####[facility] Ehldcpggxh[address] [place], [place] [address]Dr. Tadeo Smyth Nitrite Ql (U) Negative Normal NEGATIVE [facility] Comment on above: Performed By: #### E RUR ####[facility] Ukrbutwmxo[address] [place], [place] [address]Dr. Tadeo Smyth pH (U) 6.0 [pH] Normal 5-9 [facility] Comment on above: Performed By: #### E RUR ####[facility] Auwcdrxczm[address] [place], [place] [address]Dr. Tadeo Smyth SPEC GRAVITY >=1.030 Abnormal 1.005-<=1.0 25 [facility] Comment on above: Performed By: #### E RUR ####[facility] [address] [place] [address]Dr. Tadeo Smyth UA PROTEIN Negative Normal NEGATIVE/ TRACE [facility] Comment on above: Performed By: #### E RUR ####[facility] T[address]wp[address]httm[address] [place] [address]Dr. Tadeo Smyth UR MICRO IND NOT INDICATED Normal [facility] Comment on above: Performed By: #### E RUR ####[facility] S[address]fcowvmj[address] [place], [place] [address]Dr. Tadeo Smyth Urobilinogen Qn (U) 0.2 {Benito'U}/dL Normal 0.2 - 1. 0 [facility] Comment on above: Performed By: #### E RUR ####[facility] N[address]rje[address] [place], [place] [address]Dr. Tadeo Smyth XR ABD FLAT UP_PA Kasey 11-28 XR ABD FLAT UP_PA CH Normal [facility] AMYLASEon 11-27-2022 Amylase [Catalytic activity/Vol] 63 U/L Normal 25-115 [facility] Comment on above: Performed By: #### L IPA, VIJI, CMP ####[facility] L[address]mltvqic[address] [place], [place] [address]Dr. Tadeo Smyth CBC AUTO DIFFon 11-27-2022 BASO # 0.0 103/ul Normal 0.0-0.1 [facility] Comment on above: Performed By: #### C BC ####[facility] [address]or[address] [place], [place] [address]Dr. Tadeo Smyth Basophils/100 WBC (Bld) 0.4 % Normal 0.2-2.0 [facility] Comment on above: Performed By: #### C BC ####[facility] R[address]wvlrky[address] [place], [place] [address]Dr. Tadeo Smyth EO # 0.2 103/ul Normal 0.0-0.7 [facility] Comment on above: Performed By: #### C BC ####[facility] [address]rvh[address] [place], [place] [address]Dr. Tadeo Smyth Eosinophils/100 WBC (Bld) 2.8 % Normal 0.9-7.0 [facility] Comment on above: Performed By: #### C BC ####[facility] [address] [place] [address]Dr. Tadeo Smyth Erythrocyte distribution width (RBC) [Ratio] 13.2 % Normal 11.0-15.0 [facility] Comment on above: Performed By: #### C BC ####[facility] Ydprldgifu[address] [place], [place] [address]Dr. Tadeo Smyth Hematocrit (Bld) [Volume fraction] 42.6 % Normal 36.0-48.0 [facility] Comment on above: Performed By: #### C BC ####[facility] Ardtivvoxj[address] [place], [place] [address]Dr. Tadeo Smyth Hemoglobin (Bld) [Mass/Vol] 13.6 g/dL Normal 12.0-16.0 [facility] Comment on above: Performed By: #### C BC ####[facility] A[address]ubgngut[address] [place], [place] [address]Dr. Tadeo Smyth IG # 0.02 10e3/ul Normal 0.00-0.03 [facility] Comment on above: Performed By: #### C BC ####[facility] Np[address]uxykwm[address] [place], [place] [address]Dr. Tadeo Smyth IG % 0.3 % Normal 0.0-0.5 [facility] Comment on above: Performed By: #### C BC ####[facility] [address]nt[address] [place], [place] [address]Dr. Tadeo Smyth LYMPH # 2.2 103/ul Normal 1.2-3.8 [facility] Comment on above: Performed By: #### C BC ####[facility] Mfwkukdkky[address] [place], [place] [address]Dr. Tadeo Smyth Lymphocytes/100 WBC (Bld) 32.1 % Normal 20.5-60.0 [facility] Comment on above: Performed By: #### C BC ####[facility] [address] [place] [address]Dr. Margotnicole Smyth MANUAL DIFF REQ NO Normal [facility] Comment on above: Performed By: #### C BC ####[facility] [address]fr[address] [place] [address]Dr. Tadeo Haja MCH (RBC) [Entitic mass] 29.6 pg Normal 26.7-34.0 [facility] Comment on above: Performed By: #### C BC ####[facility] Gjdcvyeeiz[address] [place], [place] [address]Dr. Tadeo Haja MCHC (RBC) [Mass/Vol] 31.9 g/dL Normal 29.9-35.2 [facility] Comment on above: Performed By: #### C BC ####[facility] Girlfemlwe[address] [place], [place] [address]Dr. Tadeo Smyth MCV (RBC) [Entitic vol] 92.6 fL Normal 81.0-99.0 [facility] Comment on above: Performed By: #### C BC ####[facility] C[address] [place], [place] [address]Dr. Tadeo Smyth MONO # 0.2 103/ul Critically low 0.3-0.8 [facility] Comment on above: Performed By: #### C BC ####[facility] Lyziftpybp[address] [place], [place] [address]Dr. Tadeo Smyth Monocytes/100 WBC (Bld) 3.2 % Normal 1.7-12.0 [facility] Comment on above: Performed By: #### C BC ####[facility] [address] [place], [place] [address]Dr. Tadeo Smyth NEUT # 4.2 103/ul Normal 1.4-6.5 [facility] Comment on above: Performed By: #### C BC ####[facility] K[address]awgw[address] [place], [place] [address]Dr. Tadeo Smyth Neutrophils/100 WBC (Bld) 61.2 % Normal 43.0-75.0 [facility] Comment on above: Performed By: #### C BC ####[facility] Gxmitgshxg[address] [place], [place] [address]Dr. Tadeo Smyth Platelet mean volume (Bld) [Entitic vol] 9.0 fL Critically low 9.5-13.5 [facility] Comment on above: Performed By: #### C BC ####[facility] [address] [place] [address]Dr. Tadeo Smyth PLT 392 103/ul Normal 150-450 [facility] Comment on above: Performed By: #### C BC ####[facility] [address] [place] [address]Dr. Tadeo Smyth RBC 4.60 106/ul Normal 4.20-5.40 [facility] Comment on above: Performed By: #### C BC ####[facility] [address] [place] [address]Dr. Tadeo Smyth WBC 6.9 103/ul Normal 4.0-11.0 [facility] Comment on above: Performed By: #### C BC ####[facility] [address] [place] [address]Dr. Tadeo Haja LIPASEon 11-27-2022 Lipase [Catalytic activity/Vol] 100.0 U/L Normal 73.0-393.0 [facility] Comment on above: Performed By: #### L VIJI HALL, CMP ####[facility] [address] [place] [address]Dr. Tadeo Smyth PROF 14(COMP METB)on 023 Albumin [Mass/Vol] 3.5 g/dL Normal 3.4-5.0 [facility] Comment on above: Performed By: #### L VIJI HALL, CMP ####[facility] [address] [place] [address]Dr. Margotnicole Smyth Albumin/Globulin [Mass ratio] 0.9 {ratio} Normal [facility] Comment on above: Performed By: #### L VIJI HALL, CMP ####[facility] [address] [place] [address]Dr. Tadeo Smyth ALP [Catalytic activity/Vol] 166 U/L Critically high 46-116 [facility] Comment on above: Performed By: #### L ISABEL VIJI, CMP ####[facility] [address] [place] [address]Dr. Tadeo Smyth ALT [Catalytic activity/Vol] 25 U/L Normal 14-59 [facility] Comment on above: Performed By: #### L IPA, VIJI, CMP ####[facility] Q[address]ies[address] [place] [address]Dr. Tadeo Smyth Anion gap [Moles/Vol] 12.4 mmol/L Normal Th [facility] Comment on above: Performed By: #### L IPA, VIJI, CMP ####[facility] [address] [place] [address]Dr. Tadeo Smyth AST [Catalytic activity/Vol] 18 U/L Normal 15-37 [facility] Comment on above: Performed By: #### L IPA VIJI, CMP ####[facility] I[address]xaibclt[address] [place], [place] [address]Dr. Tadeo Smyth Bilirubin [Mass/Vol] 0.3 mg/dL Normal 0.2-1.0 [facility] Comment on above: Performed By: #### L IPA VIJI, CMP ####[facility] E[address]ulxujr[address] [place], [place] [address]Dr. Tadeo Smyth Calcium [Mass/Vol] 9.1 mg/dL Normal 8.5-10.1 [facility] Comment on above: Performed By: #### L IPA VIJI, CMP ####[facility] Egjcjkulzg[address] [place], [place] [address]Dr. Tadeo Smyth Chloride [Moles/Vol] 104 mmol/L Normal 98-107 [facility] Comment on above: Performed By: #### L IPA VIJI, CMP ####[facility] Lu[address]ujzsh[address] [place], [place] [address]Dr. Tadeo Smyth CO2 [Moles/Vol] 25.0 mmol/L Normal 21.0-32.0 [facility] Comment on above: Performed By: #### L IPA, VIJI, CMP ####[facility] Xexftpbrfy[address] [place], [place] [address]Dr. Tadeo Smyth Creatinine [Mass/Vol] 0.87 mg/dL Normal 0.55-1.02 [facility] Comment on above: Performed By: #### L VIJI HALL, CMP ####[facility] [address] [place] [address]Dr. Tadeo Smyth EGFR-AF GREEK >60 Normal >=60 [facility] Comment on above: Performed By: #### L ISABEL VIJI, CMP ####[facility] Onskdt[address]yl[address] [place] [address]Dr. Tadeo Smyth EGFR-NON AF GREEK >60 Normal >=60 [facility] Comment on above: Performed By: #### L VIJI HALL, CMP ####[facility] O[address]pewzd[address] [place] [address]Dr. Tadeo Smyth Globulin (S) [Mass/Vol] 3.9 g/dL Normal [facility] Comment on above: Performed By: #### L VIJI HALL, CMP ####[facility] K[address]bcclk[address] [place], [place] [address]Dr. Tadeo Smyth Glucose [Mass/Vol] 169 mg/dL Critically high 74-106 [facility] Comment on above: Performed By: #### L VIJI HALL, CMP ####[facility] Y[address]abdfa[address] [place], [place] [address]Dr. Tadeo Smyth Potassium [Moles/Vol] 3.4 mmol/L Critically low 3.5-5.1 [facility] Comment on above: Performed By: #### L VIJI HALL, CMP ####[facility] [address]mmb[address] [place], [place] [address]Dr. Tadeo Smyth Protein [Mass/Vol] 7.4 g/dL Normal 6.4-8.2 [facility] Comment on above: Performed By: #### L VIJI HALL, CMP ####[facility] Acl[address]yfszg[address] [place], [place] [address]Dr. Tadeo Smyth Sodium [Moles/Vol] 138 mmol/L Normal 136-145 [facility] Comment on above: Performed By: #### L VIJI HALL, CMP ####[facility] [address] [place], [place] [address]Dr. Tadeo Smyth Urea nitrogen [Mass/Vol] 23.0 mg/dL Critically high 7.0-18.0 [facility] Comment on above: Performed By: #### L VIJI HALL CMP ####[facility] [address] [place], [place] [address]Dn. Tadeo Smyth Urea nitrogen/Creatinine [Mass ratio] 26.4 mg/mg Normal [facility] Comment on above: Performed By: #### L VIJI HALL CMP ####[facility] F[address] [place], [place] [address]Oz. [address] CT enterographyon 11-04-2022 CT enterography [facility] [place] [address] [place] [address] CT Scan Report Signed Patient: Constantino Cardoso MR#: [id number] : 1970 Acct:[id number] Age/Sex: 52 / F ADM Date: 11/04/22 Loc: CT Room: Type: [facility] Attending Dr: Jennie Ayon MD Copies to: Jennie Ayon MD Ordering Provider: Jennie Ayon MD Date of Service: 11/04/22 CT/CT enterography: Abdominal pain;Constipation CT ABDOMEN AND PELVIS WITH INTRAVENOUS CONTRAST: Enterography protocol CLINICAL HISTORY: Constipation on and off for one year with abdominal pain. COMPARISON: CT abdomen and pelvis 10/26/2022 TECHNIQUE: Spiral images were obtained through the abdomen and pelvis following the administration of intravenous contrast. Enterography protocol was utilized. This CT exam was performed using one or more following dose reduction techniques: Automated exposure control, adjustment of the mA and/or kV according to patient size, or use of iterative reconstruction technique. FINDINGS: Lung Bases: [Bibasilar atelectasis.] Organs:Gallbladder has been removed. Liver spleen pancreas and adrenal glands all appear unremarkable. No enhancing renal mass or hydronephrosis. Abdominal aorta appears normal in caliber.[ GI: Post surgical changes are seen at the level of the GE junction. Distal stomach is grossly unremarkable. Small bowel demonstrates adequate distention. No fold pattern is seen. No abnormal wall thickening or enhancement. Terminal ileum appears unremarkable. Duodenum is normally positioned. No acute colonic abnormality.[ Pelvis:[Urinary bladder is grossly unremarkable. Uterus has been removed. No adnexal mass.] Peritoneum/Retroperitoneum: No free air, free fluid or lymphadenopathy. Osseous structures demonstrate degenerative change.[ Abd wall/Bones:Abdominal wall demonstrates no acute findings. Osseous structures demonstrate degenerative change.[ CT/CT enterography IMPRESSION: No CT evidence of acute process or small bowel abnormality. Impression dictated by: Tiburcio Bateman Jr., DNeoONeo11/04/2022 11:17 AM Dictation Location: [place] [address] Transcribed By: [facility] 11/04/22 111 Dictated By: Tiburcio Bateman Jr, DO 11/04/22 111 Signed By: 11/04/22 1117 Normal [facility] AMYLASEon 11-02-2022 Amylase [Catalytic activity/Vol] 40 U/L Normal 25-115 [facility] Comment on above: Performed By: #### L IPA, MG, CMP, VIJI ####[facility] I[address]voovfw[address] [place] [address]Dr. Tadeo Smyth CBC AUTO DIFFon 11-02-2022 BASO # 0.0 103/ul Normal 0.0-0.1 [facility] Comment on above: Performed By: #### C BC ####[facility] Y[address]jtduzwp[address] [place] [address]Dr. Tadeo Smyth Basophils/100 WBC (Bld) 0.5 % Normal 0.2-2.0 [facility] Comment on above: Performed By: #### C BC ####[facility] Axlnfiqrqt8393 [place] [address]Dr. Tadeo Smyth EO # 0.1 103/ul Normal 0.0-0.7 [facility] Comment on above: Performed By: #### C BC ####[facility] Zxy[address]dz[address] [place] [address]Dr. Tadeo Smyth Eosinophils/100 WBC (Bld) 2.8 % Normal 0.9-7.0 [facility] Comment on above: Performed By: #### C BC ####[facility] Ezurwdpbgn4[address] [place] [address]Dr. Tadeo Smyth Erythrocyte distribution width (RBC) [Ratio] 13.3 % Normal 11.0-15.0 [facility] Comment on above: Performed By: #### C BC ####[facility] Shmhrxuvkq[address] [place] [address]Dr. Tadeo Smyth Hematocrit (Bld) [Volume fraction] 35.6 % Critically low 36.0-48.0 [facility] Comment on above: Performed By: #### C BC ####[facility] Y[address]hs[address] [place], [place] [address]DrNeo Smyth Hemoglobin (Bld) [Mass/Vol] 11.3 g/dL Critically low 12.0-16.0 [facility] Comment on above: Performed By: #### C BC ####[facility] Tsymthcjst[address] [place], [place] [address]Dr. Tadeo Smyth IG # 0.01 10e3/ul Normal 0.00-0.03 [facility] Comment on above: Performed By: #### C BC ####[facility] T[address]ivkmeals[address] [place], [place] [address]Dr. Tadeo Smyth IG % 0.2 % Normal 0.0-0.5 [facility] Comment on above: Performed By: #### C BC ####[facility] Anfuapmegi[address] [place], [place] [address]DrNeo Smyth LYMPH # 1.5 103/ul Normal 1.2-3.8 [facility] Comment on above: Performed By: #### C BC ####[facility] Oirpdivomj[address] [place], [place] [address]DrNeo Smyth Lymphocytes/100 WBC (Bld) 34.9 % Normal 20.5-60.0 [facility] Comment on above: Performed By: #### C BC ####[facility] Zgasfonitz[address] [place], [place] [address]DrNeo Smyth MANUAL DIFF REQ NO Normal [facility] Comment on above: Performed By: #### C BC ####[facility] Umowpwxlhz42[address] [place], [place] [address]DrNeo Smyth MCH (RBC) [Entitic mass] 28.8 pg Normal 26.7-34.0 [facility] Comment on above: Performed By: #### C BC ####[facility] Rfvbfeiahu[address]39 [place] [address]Dr. Tadeo Smyth MCHC (RBC) [Mass/Vol] 31.7 g/dL Normal 29.9-35.2 [facility] Comment on above: Performed By: #### C BC ####[facility] Iavcclwtce8863 [place] [address]DrNeo Smyth MCV (RBC) [Entitic vol] 90.8 fL Normal 81.0-99.0 [facility] Comment on above: Performed By: #### C BC ####[facility] Idzwceupmy[address] [place], [place] [address]DrNeo Smyth MONO # 0.3 103/ul Normal 0.3-0.8 [facility] Comment on above: Performed By: #### C BC ####[facility] Phsdaiqsgl[address] [place], [place] [address]DrNeo Smyth Monocytes/100 WBC (Bld) 6.9 % Normal 1.7-12.0 [facility] Comment on above: Performed By: #### C BC ####[facility] [address]hengkv[address] [place], [place] [address]DrNeo Smyth NEUT # 2.4 103/ul Normal 1.4-6.5 [facility] [facility] Comment on above: Performed By: #### C BC ####[facility] [id number] [place], [place] [address]DrNeo Smyth Neutrophils/100 WBC (Bld) 54.7 % Normal 43.0-75.0 [facility] Comment on above: Performed By: #### C BC ####[facility] N[address]xlv[address] [place], [place] [address]DrNeo Smyth Platelet mean volume (Bld) [Entitic vol] 8.9 fL Critically low 9.5-13.5 [facility] Comment on above: Performed By: #### C BC ####[facility] [id number] [place], [place] [address]DrNeo Smyth PLT 316 103/ul Normal 150-450 [facility] Comment on above: Performed By: #### C BC ####[facility] [address] [place] [address]Dr. Tadeo Smyth RBC 3.92 106/ul Critically low 4.20-5.40 [facility] Comment on above: Performed By: #### C BC ####[facility] Tjpglcwlys[address] [place] [address]Dr. Tadeo Smyth WBC 4.4 103/ul Normal 4.0-11.0 [facility] Comment on above: Performed By: #### C BC ####[facility] Zgixrjaaxc64[address] [place] [address]Dr. Tadeo Smyth H PYLORI ANTIBODY IGGon 10-07 H. PYLORI IGG ABS 0.12 Index Value Normal 0.00-0.79 [facility] Comment on above: Result Comment: Nega tive <0.80 Equivocal 0.80 - 0.89 Positive >0.89 Performed By: #### H PYLLC ####[facility] W[address]ikxwlmxx[address] [place], [place] [address]Dr. Tadeo Smyth LIPASEon 11-02-2022 Lipase [Catalytic activity/Vol] 58.0 U/L Critically low 73.0-393.0 [facility] Comment on above: Performed By: #### L IPA, MG, CMP, VIJI ####[facility] Qndnbcoefi[address] [place], [place] [address]Dr. Tadeo Smyth MAGNESIUMon 11-02-2022 Magnesium [Mass/Vol] 1.8 mg/dL Normal 1.8-2.4 [facility] Comment on above: Performed By: #### L IPA, MG, CMP, VIJI ####[facility] Ecxruzukus[address] [place], [place] [address]DrNeo Tadeo Smyth PROF 14(COMP METB)on 023 Albumin [Mass/Vol] 3.2 g/dL Critically low 3.4-5.0 [facility] Comment on above: Performed By: #### L IPA, MG, CMP, VIJI ####[facility] Dsoshnoehq[address] [place] [address]Dr. Tadeo Smyth Albumin/Globulin [Mass ratio] 1.0 {ratio} Normal [facility] Comment on above: Performed By: #### L IPA, MG, CMP, VIJI ####[facility] Flvpmohkjv7[address] [place] [address]Dr. Tadeo Smyth ALP [Catalytic activity/Vol] 138 U/L Critically high 46-116 [facility] Comment on above: Performed By: #### L IPA, MG, CMP, VIJI ####[facility] [id number] [place], [place] [address]Dr. Tadeo Smyth ALT [Catalytic activity/Vol] 22 U/L Normal 14-59 [facility] Comment on above: Performed By: #### L IPA, MG, CMP, VIJI ####[facility] Psjtnfjtnf13[address] [place], [place] [address]Dr. Tadeo Smyth Anion gap [Moles/Vol] 10.0 mmol/L Normal [facility] Comment on above: Performed By: #### L IPA, MG, CMP, VIJI ####[facility] Nsbaqzxtbd[address] [place], [place] [address]Dr. Tadeo Smyth AST [Catalytic activity/Vol] 18 U/L Normal 15-37 [facility] Comment on above: Performed By: #### L IPA, MG, CMP, VIJI ####[facility] Kqwrsrxaqe99[address] [place], [place] [address]Dr. Tadeo Smyth Bilirubin [Mass/Vol] 0.5 mg/dL Normal 0.2-1.0 [facility] Comment on above: Performed By: #### L IPA, MG, CMP, VIJI ####[facility] Csndtljfxx18[address] [place], [place] [address]Dr. Tadeo Smyth Calcium [Mass/Vol] 8.9 mg/dL Normal 8.5-10.1 [facility] Comment on above: Performed By: #### L IPA, MG, CMP, VIJI ####[facility] Ziwowigtya5[address] [place], [place] [address]Dr. Tadeo Smyth Chloride [Moles/Vol] 107 mmol/L Normal 98-107 [facility] Comment on above: Performed By: #### L IPA, MG, CMP, VIJI ####[facility] Sccssxyhaz2[address] [place] [address]Dr. Tadeo Smyth CO2 [Moles/Vol] 28.8 mmol/L Normal 21.0-32.0 [facility] Comment on above: Performed By: #### L IPA, MG, CMP, VIJI ####[facility] Wwghcqufdl09[address] [place] [address]Dr. Tadeo Smyth Creatinine [Mass/Vol] 0.74 mg/dL Normal 0.55-1.02 [facility] Comment on above: Performed By: #### L IPA, MG, CMP, VIJI ####[facility] Jdddcniseu8[address] [place], [place] [address]Dr. Tadeo Smyth EGFR-AF GREEK >60 Normal >=60 [facility] Comment on above: Performed By: #### L IPA, MG, CMP, VIJI ####[facility] Vsispezwjl5324[address] [place], [place] [address]Dr. Tadeo Haja EGFR-NON AF GREEK >60 Normal >=60 [facility] Comment on above: Performed By: #### L IPA, MG, CMP, VIJI ####[facility] Fggpicsqtf5[address] [place], [place] [address]Dr. Tadeo Smyth Globulin (S) [Mass/Vol] 3.3 g/dL Normal [facility] Comment on above: Performed By: #### L IPA, MG, CMP, VIJI ####[facility] Zyaqshpuqf7[address] [place] [address]Dr. Margotnicole Haja Glucose [Mass/Vol] 96 mg/dL Normal 74-106 [facility] Comment on above: Performed By: #### L IPA, MG, CMP, VIJI ####[facility] Lrbxaxepoa[address] [place], [place] [address]Dr. Margotnicole Smyth Potassium [Moles/Vol] 3.8 mmol/L Normal 3.5-5.1 [facility] Comment on above: Performed By: #### L IPA, MG, CMP, VIJI ####[facility] Guubgmcleq[address] [place], [place] [id number]. Tadeo Smyth Protein [Mass/Vol] 6.5 g/dL Normal 6.4-8.2 [facility] Comment on above: Performed By: #### L IPA, MG, CMP, VIJI ####[facility] Efumoyicov5[address] [place] [address]Dr. Margotnicole Smyth Sodium [Moles/Vol] 142 mmol/L Normal 136-145 [facility] Comment on above: Performed By: #### L IPA, MG, CMP, VIJI ####[facility] Jrwdkcbpnj3582[address] [place], [place] [address]Dr. Margotnicole Smyth Urea nitrogen [Mass/Vol] 8.0 mg/dL Normal 7.0-18.0 [facility] Comment on above: Performed By: #### L IPA, MG, CMP, VIJI ####[facility] Sobcwynxdo7148[address] [place], [place] [address]Dr. Tadeo Smyth Urea nitrogen/Creatinine [Mass ratio] 10.8 mg/mg Normal [facility] Comment on above: Performed By: #### L IPA, MG, CMP, VIJI ####[facility] Cxhmgldiiz3542[address] [place], [place] [address]Dr. Tadeo Haja AMMONIAon 11-01-2022 Ammonia (P) [Moles/Vol] 18 umol/L Normal 11-32 [facility] Comment on above: Performed By: #### A MM ####[facility] Whtdiqyreq87[address] [place], [place] [address]Dr. Margotnicole Smyth AMYLASEon 11-01-2022 Amylase [Catalytic activity/Vol] 43 U/L Normal 25-115 [facility] Comment on above: Performed By: #### M G, VIJI, LIPA, CMP ####[facility] Hkfyhupzji4[address] [place], [place] [address]Dr. Margotnicole Haja CBC AUTO DIFFon 11-01-2022 BASO # 0.0 103/ul Normal 0.0-0.1 [facility] Comment on above: Performed By: #### C BC ####[facility] Qqhlzgtdbk34[address] [place], [place] [address]Dr. Tadeo Smyth Basophils/100 WBC (Bld) 0.6 % Normal 0.2-2.0 [facility] Comment on above: Performed By: #### C BC ####[facility] Rdqjhwdznr8546[address] [place], [place] [address]Dr. Tadeo Haja EO # 0.1 103/ul Normal 0.0-0.7 [facility] Comment on above: Performed By: #### C BC ####[facility] Otmawjprdi96[address] [place], [place] [address]Dr. Tadeo Smyth Eosinophils/100 WBC (Bld) 1.5 % Normal 0.9-7.0 [facility] Comment on above: Performed By: #### C BC ####[facility] Nplihvljen1354[address] [place], [place] [address]Dr. Tadeo Smyth Erythrocyte distribution width (RBC) [Ratio] 13.5 % Normal 11.0-15.0 [facility] Comment on above: Performed By: #### C BC ####[facility] Raolvameoh[address] [place], [place] [address]Dr. Tadeo Smyth Hematocrit (Bld) [Volume fraction] 37.7 % Normal 36.0-48.0 [facility] Comment on above: Performed By: #### C BC ####[facility] Ssrkwidxxz10[address] [place], [place] [address]Dr. Tadeo Smyth Hemoglobin (Bld) [Mass/Vol] 12.5 g/dL Normal 12.0-16.0 [facility] Comment on above: Performed By: #### C BC ####[facility] Hwuyeqepyh25[address] [place], [place] [address]Dr. Tadeo Smyth IG # 0.02 10e3/ul Normal 0.00-0.03 [facility] Comment on above: Performed By: #### C BC ####[facility] Zrzvqpyejn12[address] [place], [place] [address]Dr. Tadeo Smyth IG % 0.4 % Normal 0.0-0.5 [facility] Comment on above: Performed By: #### C BC ####[facility] Yxnttmmyqg[address] [place], [place] [address]DrNeo Smyth LYMPH # 1.3 103/ul Normal 1.2-3.8 [facility] Comment on above: Performed By: #### C BC ####[facility] S[address]yqprcf[address] [place] [address]DrNeo Smyth Lymphocytes/100 WBC (Bld) 23.9 % Normal 20.5-60.0 [facility] Comment on above: Performed By: #### C BC ####[facility] Ckwnyocjgj[address] [place], [place] [address]DrNeo Smyth MANUAL DIFF REQ NO Normal [facility] Comment on above: Performed By: #### C BC ####[facility] Nqtpiuxqmf7910 [place] [address]DrNeo Smyth MCH (RBC) [Entitic mass] 29.8 pg Normal 26.7-34.0 [facility] Comment on above: Performed By: #### C BC ####[facility] Nbsopgmtkk2513[address] [place], [place] [address]DrNeo Smyth MCHC (RBC) [Mass/Vol] 33.2 g/dL Normal 29.9-35.2 [facility] Comment on above: Performed By: #### C BC ####[facility] Fxzalttbpr[address] [place], [place] [address]DrNeo Smyth MCV (RBC) [Entitic vol] 89.8 fL Normal 81.0-99.0 [facility] Comment on above: Performed By: #### C BC ####[facility] Ksgngucxmy[address] [place], [place] [address]DrNeo Smyth MONO # 0.3 103/ul Normal 0.3-0.8 [facility] Comment on above: Performed By: #### C BC ####[facility] Wsbkelkbbh[address] [place], [place] [address]DrNeo Smyth Monocytes/100 WBC (Bld) 5.2 % Normal 1.7-12.0 [facility] Comment on above: Performed By: #### C BC ####[facility] Pirrsixmbn8104[address] [place], [place] [address]DrNeo Smyth NEUT # 3.6 103/ul Normal 1.4-6.5 [facility] Comment on above: Performed By: #### C BC ####[facility] Liyjxxoejs[address] [place] [address]Dr. Tadeo Smyth Neutrophils/100 WBC (Bld) 68.4 % Normal 43.0-75.0 [facility] Comment on above: Performed By: #### C BC ####[facility] Bunawexsiu[address] [place], [place] [address]Dr. Tadeo Smyth Platelet mean volume (Bld) [Entitic vol] 9.0 fL Critically low 9.5-13.5 [facility] Comment on above: Performed By: #### C BC ####[facility] Yxqpxtzjvh[address] [place], [place] [address]Dr. Tadeo Smyth PLT 356 103/ul Normal 150-450 [facility] Comment on above: Performed By: #### C BC ####[facility] Kkoqibozds[address] [place], [place] [address]Dr. Tadeo Smyth RBC 4.20 106/ul Normal 4.20-5.40 [facility] Comment on above: Performed By: #### C BC ####[facility] Fudcpvjwwb6[address] [place], [place] [address]Dr. Tadeo Smyth WBC 5.2 103/ul Normal 4.0-11.0 [facility] Comment on above: Performed By: #### C BC ####[facility] Cekutwhzkn69[address] [place], [place] [address]Dr. Tadeo Smyth CT ABD/PELV W CONon 11-01-19 CT ABD/PELV W CON Normal [facility] CULTURE BLOODon 11-01-2022 Microscopic examination of blood, culture Culture Observations: NO GROWTH AT 5 DAYS. Isolate 1 BC_BA_NA Normal [facility] Comment on above: Performed By: #### B LDCX2 ####[facility] Wxsaqznmbl06[address] [place], [place] [address]Dr. Tadeo Smyth Performed By: #### B LDCX1 ####[facility] Kvtataenso61[address] [place], [place] [address]Dr. Tadeo Smyth CULTURE URINEon 11-01-2022 CULTURE URINE Culture Observations : LIGHT GROWTH OF MIXED GENITAL SINTIA. NO POTENTIAL PATHOGENS SEEN. Normal [facility] Comment on above: Performed By: #### U RCX ####[facility] Xwdndyomkl[address] [place], [place] [address]Dr. Tadeo Smyth Covid-19 PCR ([facility])on 10-07 SARS-CoV-2 (COVID-19) RNA CHEN+probe Ql (Unsp spec) Not detected Normal NOT DETECTED [facility] Comment on above: Result Comment: When diagnostic testing is negative, the possibility of a false negative should be considered inthe context of a patient's recent exposures and the presence of clinical signs and symptomsconsistent with SARS-CoV-2.This test is not yet approved or cleared by the [place] FDA. When there are no FDA-approved or cleared tests available, and other criteria are met, FDA can make tests available under an emergency access mechanism called an Emergency Use Authorization (EUA). The EUA for this test is supported by the [place] of Health and Human Service's declaration that circumstances exist to justify the emergency use of in vitro diagnostics for the detection and/or diagnosis of the virus that causes COVID-19. This EUA will remain in effect for the duration of the COVID-19 declaration justifying emergency of IVDs, unless it is terminated or revoked by the FDA (after which the test may no longer be used). Performed By: #### C VDTBH ####[facility] Xigiafvpxp[address] [place], [place] [address]Dr. Tadeo Smyth LACTATE/LACTIC ACIDon 2022 Lactate [Moles/Vol] 0.7 mmol/L Normal 0.4-1.9 [facility] Comment on above: Performed By: #### L ACT ####[facility] Epedenouox8675[address] [place], [place] [address]Dr. Tadeo Smyth LIPASEon 11-01-2022 Lipase [Catalytic activity/Vol] 58.0 U/L Critically low 73.0-393.0 [facility] Comment on above: Performed By: #### M G, VIJI, LIPA, CMP ####[facility] [address]qx[address] [place] [address]Dr. Tadeo Smyth MAGNESIUMon 11-01-2022 Magnesium [Mass/Vol] 2.0 mg/dL Normal 1.8-2.4 [facility] Comment on above: Performed By: #### Clementina Botello, VIJI, LIPA, CMP ####[facility] [address]zolejpsba[address] [place] [address]Dr. Tadeo Smyth PROF 14(COMP METB)on 023 Albumin [Mass/Vol] 3.6 g/dL Normal 3.4-5.0 [facility] Comment on above: Performed By: #### Clementina Botello, VIJI, LIPA, CMP ####[facility] Dkantaupzx36[address] [place] [address]Dr. Tadeo Smyth Albumin/Globulin [Mass ratio] 1.0 {ratio} Normal [facility] Comment on above: Performed By: #### Clementina Botello, VIJI, LIPA, CMP ####[facility] [address]zob[address]wni74[address] [place] [address]Dr. Tadeo Smyth ALP [Catalytic activity/Vol] 164 U/L Critically high 46-116 [facility] Comment on above: Performed By: #### Clementina Botello, VIJI, LIPA, CMP ####[facility] Rlfmvajzho5[address] [place] [address]Dr. Tadeo Smyth ALT [Catalytic activity/Vol] 22 U/L Normal 14-59 [facility] Comment on above: Performed By: #### Clementina Botello, VIJI, LIPA, CMP ####[facility] C[address]afhaapq[address] [place] [address]Dr. Tadeo Smyth Anion gap [Moles/Vol] 11.5 mmol/L Normal [facility] Comment on above: Performed By: #### M Ayan, VIJI, LIPA, CMP ####[facility] Vezdsmmhxt8[address] [place] [address]Dr. Tadeo Smyth AST [Catalytic activity/Vol] 17 U/L Normal 15-37 [facility] Comment on above: Performed By: #### Clementina Botello, VIJI, LIPA, CMP ####[facility] Fjmdvkotaa11[address] [place] [address]Dr. Tadeo Smyth Bilirubin [Mass/Vol] 0.4 mg/dL Normal 0.2-1.0 [facility] Comment on above: Performed By: #### M G, VIJI, LIPA, CMP ####[facility] Yqwosluxwq2156[address] [place], [place] [address]Dr. aTdeo Smyth Calcium [Mass/Vol] 9.1 mg/dL Normal 8.5-10.1 [facility] Comment on above: Performed By: #### M G, VIJI, LIPA, CMP ####[facility] Nxcxpfljhv68[address] [place], [place] [address]Dr. Tadeo Smyth Chloride [Moles/Vol] 105 mmol/L Normal 98-107 [facility] Comment on above: Performed By: #### M G, VIJI, LIPA, CMP ####[facility] Zepatnhdzx64[address] [place], [place] [address]Dr. Tadeo Smyth CO2 [Moles/Vol] 27.6 mmol/L Normal 21.0-32.0 [facility] Comment on above: Performed By: #### M G, VIJI, LIPA, CMP ####[facility] Hjizfmcrdc[address] [place], [place] [address]Dr. Tadeo Smyth Creatinine [Mass/Vol] 0.72 mg/dL Normal 0.55-1.02 [facility] Comment on above: Performed By: #### M G, VIJI, LIPA, CMP ####[facility] Tstwabwoqk5[address] [place], [place] [address]Dr. Tadeo Smyth EGFR-AF GREEK >60 Normal >=60 [facility] Comment on above: Performed By: #### M G, VIJI, LIPA, CMP ####[facility] Kkymrsqcep[address] [place], [place] [address]Dr. Tadeo Smyth EGFR-NON AF GREEK >60 Normal >=60 [facility] Comment on above: Performed By: #### M G, VIJI, LIPA, CMP ####[facility] Ijjoctriql6239[address] [place], [place] [address]Dr. Tadeo Smyth Globulin (S) [Mass/Vol] 3.6 g/dL Normal [facility] Comment on above: Performed By: #### M Ayan, VIJI, LIPA, CMP ####[facility] Vcwnaaygdg[address] [place] [address]Dr. Tadeo Smyth Glucose [Mass/Vol] 100 mg/dL Normal 74-106 [facility] Comment on above: Performed By: #### M G, VIJI, LIPA, CMP ####[facility] Mfgcpgphri27[address] [place] [address]Dr. Tadeo Smyth Potassium [Moles/Vol] 4.1 mmol/L Normal 3.5-5.1 [facility] Comment on above: Performed By: #### M Ayan, VIJI, LIPA, CMP ####[facility] Fhcrtivfdi4[address] [place], [place] [address]Dr. Tadeo Smyth Protein [Mass/Vol] 7.2 g/dL Normal 6.4-8.2 [facility] Comment on above: Performed By: #### M VIJI Botello LIPA, CMP ####[facility] Rtfjvkpryl5[address] [place] [address]Dr. Tadeo Smyth Sodium [Moles/Vol] 140 mmol/L Normal 136-145 [facility] Comment on above: Performed By: #### M Ayan, VIJI, LIPA, CMP ####[facility] Cmjufuxlxa63[address] [place] [address]Dr. Tadeo Smyth Urea nitrogen [Mass/Vol] 15.0 mg/dL Normal 7.0-18.0 [facility] Comment on above: Performed By: #### M Ayan, VIJI, LIPA, CMP ####[facility] Pygudbltmm[address] [place] [address]Dr. Tadeo Smyth Urea nitrogen/Creatinine [Mass ratio] 20.8 mg/mg Normal [facility] Comment on above: Performed By: #### M Ayan, VIJI, LIPA, CMP ####[facility] [address]fubvkdrpr[address] [place] [address]Dr. Tadeo Smyth UA RANDOM W/MICROSCOPICon BACTERIA TRACE Abnormal NONE SEEN [facility] Comment on above: Performed By: #### U AMIC ####[facility] Zxlpanhgrx44[address] [place] [address]Dr. Tadeo Smyth Bilirubin Ql (U) Negative Normal NEGATIVE [facility] Comment on above: Performed By: #### U AMIC ####[facility] Yiabriceoh[address] [place] [address]Dr. Tadeo Smyth CAST NONE SEEN Normal NONE SEEN [facility] Comment on above: Performed By: #### U AMIC ####[facility] [address]htdgnt[address] [place], [place] [address]Dr. Tadeo Smyth Clarity (U) CLEAR Normal CLEAR [facility] Comment on above: Performed By: #### U AMIC ####[facility] Lkuctlziwi8[address] [place], [place] [address]Dr. Tadeo Smyth Color (U) LT. YELLOW Normal YELLOW [facility] Comment on above: Performed By: #### U AMIC ####[facility] Jiyslnrsad216[address] [place], [place] [address]Dr. Tadeo Smyth Crystals LM Nom (Urine sed) NONE SEEN Normal NONE SEEN [facility] Comment on above: Performed By: #### U AMIC ####[facility] Sigtdomxao67[address] [place], [place] [address]Dr. Tadeo Smyth Epithelial cells LM Ql (Urine sed) RARE Normal NONE SEEN /RARE [facility] Comment on above: Performed By: #### U AMIC ####[facility] Kdqorwpdwz64[address] [place], [place] [address]Dr. Tadeo Smyth Glucose Ql (U) Negative Normal NEGATIVE [facility] Comment on above: Performed By: #### U AMIC ####[facility] Jtinewoolx2[address] [place], [place] [address]Dr. Tadeo Smyth Hemoglobin Ql (U) TRACE-LYSED Abnormal NEGATIVE [facility] Comment on above: Performed By: #### U AMIC ####[facility] Yedssgkpzr25[address] [place], [place] [address]Dr. Tadeo Smyth Ketones Ql (U) Negative Normal NEGATIVE [facility] Comment on above: Performed By: #### U AMIC ####[facility] Jdiqmzjpsp549[address] [place] [address]Dr. Tadeo Smyth LEUKOCYTES Negative Normal NEGATIVE [facility] Comment on above: Performed By: #### U AMIC ####[facility] Npodguxjjh0525 [place] [address]Dr. Tadeo Smyth MUCOUS NONE SEEN Normal NONE SEEN [facility] Comment on above: Performed By: #### U AMIC ####[facility] Bcxjrdbslq50[address] [place] [address]Dr. Tadeo Smyth Nitrite Ql (U) Negative Normal NEGATIVE [facility] Comment on above: Performed By: #### U AMIC ####[facility] [id number] [place] [address]Dr. Tadeo Smyth pH (U) 6.0 [pH] Normal 5-9 [facility] Comment on above: Performed By: #### U AMIC ####[facility] [id number] [place], [place] [address]Dr. Tadeo Smyth RBC 0-2 Normal 0-2 [facility] Comment on above: Performed By: #### U AMIC ####[facility] [id number] [place] [address]Dr. Tadeo Smyth SPEC GRAVITY 1.010 Normal 1.005-<=1.0 25 [facility] Comment on above: Performed By: #### U AMIC ####[facility] [id number] [place] [address]Dr. Tadeo Smyth UA PROTEIN Negative Normal NEGATIVE/ TRACE [facility] Comment on above: Performed By: #### U AMIC ####[facility] [id number] [place] [address]Dr. Tadeo Smyth Urobilinogen Qn (U) 0.2 {Benito'U}/dL Normal 0.2 - 1. 0 [facility] Comment on above: Performed By: #### U AMIC ####[facility] [address] [place] [address]Dr. Tadeo Smyth WBC 0-2 Abnormal NONE SEEN [facility] Comment on above: Performed By: #### U AMIC ####[facility] [address] [place], [place] [address]NxNeo Smyth Activated partial thrombopla stin time (aPTT) in platelet poor plasma by coagulation aOrdered By: Conner Griffith on 10-26-2022 aPTT Coag (PPP) [Time] 30.8 s 25.1-36.5 [facility] Albumin [Mass/volume] in Ser um or PlasmaOrdered By: Conner Griffith on 10-26-2022 Albumin [Mass/Vol] 3.6 g/dL 3.2-5.5 [facility] Automated erythrocytes count in urine sediment (number/area)Ordered By: Conner Griffith on 10-26-2022 RBC Auto (Urine sed) [#/Area] 0-1 [HPF] 0-4 [facility] Automated leukocytes count i n urine sediment (number/area)Ordered By: Conner Griffith on 10-26-2022 WBC Auto (Urine sed) [#/Area] None seen [HPF] 0-4 [facility] Basophils Auto (Bld) [#/Vol] Ordered By: Conner Griffith on 10-26-2022 Basophils (Bld) [#/Vol] 0.0 10*3/uL 0.0-0.2 [facility] Basophils/100 WBC Auto (Bld) Ordered By: Conner Griffith on 10-26-2022 Basophils/100 WBC (Bld) 0.6 % . [facility] Bilirubin Test strip Ql (U)O rdered By: Conner Griffith on 10-26-2022 Bilirubin Ql (U) Negative Negative [facility] CT abdomen pelvis w conon CT abdomen pelvis w con [facility] [place] [address] CT Scan Report Signed Patient: Constantino Cardoso MR#: [id number] : 1970 Acct:[id number] Age/Sex: 52 / F ADM Date: 10/26/22 Loc: ER Room: Type: [facility] ER Attending Dr: Copies to: Conner Griffith DO Ordering Provider: Conner Griffith DO Date of Service: 10/26/22 CT/CT abdomen pelvis w con: abd pain CT ABDOMEN AND PELVIS WITH CONTRAST COMPARISON: 06/21/2019 CLINICAL DATA: Epigastric and periumbilical pain with nausea, vomiting and distention. Spiral images were obtained through the abdomen pelvis following 90 mL Isovue-300. This CT exam was performed using one or more following dose reduction techniques: Automated exposure control, adjustment of the mA and/or kV according to patient size, or use of iterative reconstruction technique. Limited cuts through the lung bases show a hiatal hernia. There is minimal atelectasis or scarring. The gallbladder is surgically absent. This is probably the etiology of mild biliary prominence. No common duct stones are noted. No hepatic masses are seen. The spleen, pancreas and adrenal glands show no acute findings. There are bilateral symmetric renal nephrograms, without hydronephrosis. The abdominal aorta is normal caliber. Tiny lymph nodes are present. No ascites is seen. There is air and mild food debris within the stomach. The small bowel loops are not significantly distended. Stool is present within the colon on the right. The hepatic flexure and left colon are underdistended with apparent wall thickening. There is slight reverse S-shaped thoracolumbar scoliotic curvature and mild degenerative changes at the spine. Images through the pelvis show nondistended small bowel loops, some of which contain fluid. What is thought to be the appendix shows no signs of inflammation. There is mild rectosigmoid stool. The sigmoid colon is otherwise decompressed. No diverticular disease is seen. The uterus is surgically absent. The urinary bladder shows no CT abnormalities. No ascites is identified. CT/CT abdomen pelvis w con IMPRESSION: HIATAL HERNIA. MILD BILIARY PROMINENCE THAT PROBABLY RELATES TO PREVIOUS CHOLECYSTECTOMY. NO BOWEL OR URINARY TRACT OBSTRUCTION. UNDER DISTENDED SEGMENTS OF COLON WITH APPARENT WALL THICKENING. NO ACUTE FINDINGS. Impression dictated by: Columba Domínguez M.D.10/26/2022 7:46 AM Dictation Location: [place] [address] Transcribed By: ANDREA 10/26/22745 Dictated By: Columba Domínguez MD 10/26/2238 Signed By: 10/26/22745 Normal [facility] Color Auto (U)Ordered By: Kevin Griffith on 10-26-2022 Color (U) Yellow Yellow [facility] Complete Blood Count Auto Di ffon 10-26-2022 Basophils (Bld) [#/Vol] 0.0 10*3/uL Normal 0.0-0.2 [facility] Comment on above: Result Comment: PERF ORMED BY: [place] [address] PATHOLOGIST ASSEMBLER CLIP ON SUNGLASSES ROOSEVELT KEYES M.D. Performed By: #### H EPATIC, CBC, BMP, LIPASE #### [address] Basophils/100 WBC (Bld) 0.6 % Normal . [facility] Comment on above: Performed By: #### H EPATIC, CBC, BMP, LIPASE #### [address] Eosinophils (Bld) [#/Vol] 0.2 10*3/uL Normal 0.0-0.45 [facility] Comment on above: Performed By: #### H EPATIC, CBC, BMP, LIPASE #### [address] Eosinophils/100 WBC (Bld) 3.3 % Normal . [facility] Comment on above: Performed By: #### H EPATIC, CBC, BMP, LIPASE #### [address] Erythrocyte distribution width (RBC) [Ratio] 14.5 % Normal 11.9-15.3 [facility] Comment on above: Performed By: #### H EPATIC, CBC, BMP, LIPASE #### [facility] [address] [place] [address] Hematocrit (Bld) [Volume fraction] 36.7 % Normal 34.0-46.4 [facility] Comment on above: Performed By: #### H EPATIC, CBC, BMP, LIPASE #### [facility] [address] [place] [address] Hemoglobin (Bld) [Mass/Vol] 12.1 g/dL Normal 11.8-15.4 [facility] Comment on above: Performed By: #### H EPATIC, CBC, BMP, LIPASE #### [address] Lymphocytes (Bld) [#/Vol] 1.9 10*3/uL Normal 1.00-4.8 [facility] Comment on above: Performed By: #### H EPATIC, CBC, BMP, LIPASE #### [address] Lymphocytes/100 WBC (Bld) 29.7 % Normal . [facility] Comment on above: Performed By: #### H EPATIC, CBC, BMP, LIPASE #### [address] MCH (RBC) [Entitic mass] 29.3 pg Normal 24.7-34.3 [facility] Comment on above: Performed By: #### H EPATIC, CBC, BMP, LIPASE #### [address] MCV (RBC) [Entitic vol] 88.5 fL Normal 80-100 [facility] Comment on above: Performed By: #### H EPATIC, CBC, BMP, LIPASE #### [address] Mean Corpuscular HGB Conc 33.1 g/dL Normal 32.0-35.0 [facility] Comment on above: Performed By: #### H EPATIC, CBC, BMP, LIPASE #### [address] Monocytes (Bld) [#/Vol] 0.4 10*3/uL Normal 0.0-0.8 [facility] Comment on above: Performed By: #### H EPATIC, CBC, BMP, LIPASE #### [address] Monocytes/100 WBC (Bld) 16.27 % Normal 0.00-20.00 [facility] Comment on above: Performed By: #### H EPATIC, CBC, BMP, LIPASE #### [address] Monocytes/100 WBC (Bld) 7.1 % Normal . [facility] Comment on above: Performed By: #### H EPATIC, CBC, BMP, LIPASE #### [facility] [address] [place] [address] Neutrophils (Bld) [#/Vol] 3.7 10*3/uL Normal 1.8-7.7 [facility] Comment on above: Performed By: #### H EPATIC, CBC, BMP, LIPASE #### [address] Neutrophils/100 WBC (Bld) 59.3 % Normal . [facility] Comment on above: Performed By: #### H EPATIC, CBC, BMP, LIPASE #### [address] NRBC% 0.3 /100{WBC} Normal 0-0.5 [facility] Comment on above: Performed By: #### H EPATIC, CBC, BMP, LIPASE #### [address] Platelet mean volume (Bld) [Entitic vol] 7.5 fL Normal 6.3-10.7 [facility] Comment on above: Performed By: #### H EPATIC, CBC, BMP, LIPASE #### [address] Platelets (Bld) [#/Vol] 379 10*3/uL Normal 150-450 [facility] Comment on above: Performed By: #### H EPATIC, CBC, BMP, LIPASE #### [address] RBC (Bld) [#/Vol] 4.14 10*6/uL Normal 3.60-5.00 [facility] Comment on above: Performed By: #### H EPATIC, CBC, BMP, LIPASE #### [place] [address] [place] WBC (Bld) [#/Vol] 6.3 10*3/uL Normal 3.8-11.6 [facility] Comment on above: Performed By: #### H EPATIC, CBC, BMP, LIPASE #### [facility] [address] [place] [address] Comprehensive Metabolic Pane miranda 10-26-2022 Albumin [Mass/Vol] 3.6 g/dL Normal 3.2-5.5 [facility] Comment on above: Performed By: #### H EPATIC, CBC, BMP, LIPASE #### [facility] [address] [place] [address] Albumin/Globulin [Mass ratio] 1.1 {ratio} Normal [facility] Comment on above: Performed By: #### H EPATIC, CBC, BMP, LIPASE #### [address] ALP [Catalytic activity/Vol] 121 U/L High 32-92 [facility] Comment on above: Performed By: #### H EPATIC, CBC, BMP, LIPASE #### [address] ALT [Catalytic activity/Vol] 18 U/L Normal 10-60 [facility] Comment on above: Performed By: #### H EPATIC, CBC, BMP, LIPASE #### [address] Anion gap [Moles/Vol] 11.3 mmol/L Normal 6.0-15.0 [facility] Comment on above: Performed By: #### H EPATIC, CBC, BMP, LIPASE #### [address] AST [Catalytic activity/Vol] 19 U/L Normal 10-42 [facility] Comment on above: Performed By: #### H EPATIC, CBC, BMP, LIPASE #### [facility] [address] [place] [address] Bilirubin [Mass/Vol] 0.4 mg/dL Normal 0.3-1.2 [facility] Comment on above: Performed By: #### H EPATIC, CBC, BMP, LIPASE #### [facility] [address] [place] [address] Calcium [Mass/Vol] 8.9 mg/dL Normal 8.2-10.2 [facility] Comment on above: Performed By: #### H EPATIC, CBC, BMP, LIPASE #### [facility] [address] [place] [address] Chloride [Moles/Vol] 108 mmol/L Normal 95-114 [facility] Comment on above: Performed By: #### H EPATIC, CBC, BMP, LIPASE #### [facility] [address] [place] [address] CO2 [Moles/Vol] 25.1 mmol/L Normal 22.0-30.0 [facility] Comment on above: Performed By: #### H EPATIC, CBC, BMP, LIPASE #### [address] Creatinine [Mass/Vol] 0.81 mg/dL Normal 0.44-1.03 [facility] Comment on above: Performed By: #### H EPATIC, CBC, BMP, LIPASE #### [address] Creatinine Clr Calc Pharmacy 93.01 [facility] Comment on above: Performed By: #### H EPATIC, CBC, BMP, LIPASE #### [address] Estimated GFR ( Roberto > 60 [facility] Comment on above: Result Comment: GFR estimated reference range: According to KDOQI guidelines, <60 ml/min/1.73m2 is sufficient to diagnose a patient with chronic kidney disease. Performed By: #### H EPATIC, CBC, BMP, LIPASE #### [facility] [address] [place] [address] Estimated GFR (Non- Am > 60 [facility] Comment on above: Performed By: #### H EPATIC, CBC, BMP, LIPASE #### [address] Globulin (S) [Mass/Vol] 3.2 g/dL [facility] Comment on above: Performed By: #### H EPATIC, CBC, BMP, LIPASE #### [facility] [address] Glucose [Mass/Vol] 95 mg/dL Normal 70-100 [facility] Comment on above: Result Comment: [facility] Glucose Reference Range is dependent on time and content of last meal. Glucose of more than 200 mg/dL in a nonstressed, ambulatory subject supports the diagnosis of Diabetes Mellitus. ADA recommended reference range Performed By: #### H EPATIC, CBC, BMP, LIPASE #### [address] Potassium [Moles/Vol] 3.4 mmol/L Low 3.5-5.1 [facility] Comment on above: Performed By: #### H EPATIC, CBC, BMP, LIPASE #### [address] Protein [Mass/Vol] 6.8 g/dL Normal 6.1-7.9 [facility] Comment on above: Performed By: #### H EPATIC, CBC, BMP, LIPASE #### [address] Sodium [Moles/Vol] 141 mmol/L Normal 136-146 [facility] Comment on above: Performed By: #### H EPATIC, CBC, BMP, LIPASE #### [address] Urea nitrogen [Mass/Vol] 18 mg/dL Normal 9-23 [facility] Comment on above: Performed By: #### H EPATIC, CBC, BMP, LIPASE #### [address] Creatinine and Glomerular fi ltration rate.predicted panel (S/P/Bld)Ordered By: Conner Griffith on 10-26-2022 Creatinine [Mass/Vol] 0.81 mg/dL 0.44-1.03 [facility] Dipstick and Microscopicon 0 10-26-2022 Appearance (U) Clear Normal Clear [facility] Comment on above: Order Comment: Name Collection Type:: Clean-Voided Midstream Performed By: #### H EPATIC, CBC, BMP, LIPASE #### [facility] [address] [place] [address] [place] Bacteria,Urine None Seen Normal None Seen [facility] Comment on above: Order Comment: Name Collection Type:: Clean-Voided Midstream Performed By: #### H EPATIC, CBC, BMP, LIPASE #### [facility] [address] [place] [address] [place] Bilirubin,Urine Negative Normal Negative [facility] Comment on above: Order Comment: Name Collection Type:: Clean-Voided Midstream Performed By: #### H EPATIC, CBC, BMP, LIPASE #### [facility] [address] Color (U) Yellow Normal Yellow [facility] Comment on above: Order Comment: Name Collection Type:: Clean-Voided Midstream Performed By: #### H EPATIC, CBC, BMP, LIPASE #### [facility] [address] [place] [address] Glucose Ql (U) Normal Normal Normal [facility] Comment on above: Order Comment: Name Collection Type:: Clean-Voided Midstream Performed By: #### H EPATIC, CBC, BMP, LIPASE #### [facility] [address] [place] [address] Hyaline Casts,Urine None Seen Normal 0-8 [facility] Comment on above: Order Comment: Name Collection Type:: Clean-Voided Midstream Result Comment: PERF ORMED BY: [place] [address] PATHOLOGIST ASSEMBLER CLIP ON SUNGLASSES ROOSEVELT KEYES M.D. Performed By: #### H EPATIC, CBC, BMP, LIPASE #### [facility] [address] [place] [address] [place] Ketones Ql (U) Negative Normal Negative [facility] Comment on above: Order Comment: Name Collection Type:: Clean-Voided Midstream Performed By: #### H EPATIC, CBC, BMP, LIPASE #### [facility] [address] [place] [address] Leukocyte esterase Test strip Ql (U) 1+ High Negative [facility] Comment on above: Order Comment: Name Collection Type:: Clean-Voided Midstream Performed By: #### H EPATIC, CBC, BMP, LIPASE #### [address] Nitrite,Urine Negative Normal Negative [facility] Comment on above: Order Comment: Name Collection Type:: Clean-Voided Midstream Performed By: #### H EPATIC, CBC, BMP, LIPASE #### [address] Occult Blood,Urine Negative Normal Negative [facility] Comment on above: Order Comment: Name Collection Type:: Clean-Voided Midstream Result Comment: PERF ORMED BY: [place] [address] PATHOLOGIST ASSEMBLER CLIP ON SUNGLASSES ROOSEVELT KEYES M.D. Performed By: #### H EPATIC, CBC, BMP, LIPASE #### [address] pH (U) 6.5 [pH] Normal 5.0-9.0 [facility] Comment on above: Order Comment: Name Collection Type:: Clean-Voided Midstream Performed By: #### H EPATIC, CBC, BMP, LIPASE #### [address] Protein,Urine Negative Normal Negative [facility] Comment on above: Order Comment: Name Collection Type:: Clean-Voided Midstream Performed By: #### H EPATIC, CBC, BMP, LIPASE #### [address] RBC LM.HPF (Urine sed) [#/Area] 0 /[HPF] Normal 0-4 [facility] Comment on above: Order Comment: Name Collection Type:: Clean-Voided Midstream Performed By: #### H EPATIC, CBC, BMP, LIPASE #### [address] Specificy Wana,Urine 1.019 Normal 1.001-1.030 [facility] Comment on above: Order Comment: Name Collection Type:: Clean-Voided Midstream Performed By: #### H EPATIC, CBC, BMP, LIPASE #### [facility] [address] Squamous Epithelial Cell,Urine 1-2 Normal 0-2 [facility] Comment on above: Order Comment: Name Collection Type:: Clean-Voided Midstream Performed By: #### H EPATIC, CBC, BMP, LIPASE #### [facility] [address] Urobilinogen,Urine Normal Normal Normal [facility] Comment on above: Order Comment: Name Collection Type:: Clean-Voided Midstream Performed By: #### H EPATIC, CBC, BMP, LIPASE #### [facility] [address] [place] [address] WBC,Urine None Seen Normal 0-4 [facility] Comment on above: Order Comment: Name Collection Type:: Clean-Voided Midstream Performed By: #### H EPATIC, CBC, BMP, LIPASE #### [facility] [address] [place] [address] Eosinophils Auto (Bld) [#/Vo l]Ordered By: Conner Griffith on 10-26-2022 Eosinophils (Bld) [#/Vol] 0.2 10*3/uL 0.0-0.45 [facility] Eosinophils/100 WBC Auto (Bl d)Ordered By: Conner Griffith on 10-26-2022 Eosinophils/100 WBC (Bld) 3.3 % . [facility] Erythrocyte distribution wid th Auto (RBC) [Ratio]Ordered By: Conner Griffith on 10-26-2022 Erythrocyte distribution width (RBC) [Ratio] 14.5 % 11.9-15.3 [facility] Estimated glomerular filtrat ion rate (GFR) non- AmericanOrdered By: Conner Griffith on 10-26-2022 GFR/1.73 sq M.predicted among non-blacks MDRD (S/P/Bld) [Vol rate/Area] > 60 mL/Min [facility] Globulin Calc (S) [Mass/Vol] Ordered By: Conner Griffith on 10-26-2022 Globulin (S) [Mass/Vol] 3.2 g/dL [facility] Hematocrit Auto (Bld) [Volum e fraction]Ordered By: Conner Griffith on 10-26-2022 Hematocrit (Bld) [Volume fraction] 36.7 % 34.0-46.4 [facility] Hemoglobin [Mass/volume] in BloodOrdered By: Conner Griffith on 10-26-2022 Hemoglobin (Bld) [Mass/Vol] 12.1 g/dL 11.8-15.4 [facility] Ketones Auto test strip (U) [Mass/Vol]Ordered By: Conner Griffith on 10-26-2022 Ketones (U) [Mass/Vol] Negative Negative [facility] Laboratory - Chemistry and C hemistry - challengeOrdered By: Conner Griffith on 10-26-2022 Lipase [Catalytic activity/Vol] 37.0 U/L [facility] - CoagulationOrde red By: Conner Griffith on 10-26-2022 PT Coag (PPP) [Time] 10.6 s 9.0-12.9 [facility] - UrinalysisOrder ed By: Conner Griffith on 10-26-2022 Hyaline casts LM Ql (Urine sed) None seen [LPF] 0-8 [facility] Lactic Acidon 10-26-2022 Lactate [Moles/Vol] 1.0 mmol/L Normal 0.5-2.2 [facility] Comment on above: Result Comment: PERF ORMED BY: [place] [address] PATHOLOGIST ASSEMBLER CLIP ON SUNGLASSES ROOSEVELT KEYES M.D. Performed By: #### H EPATIC, CBC, BMP, LIPASE #### [address] Leukocytes [#/volume] correc jun for nucleated erythrocytes in Blood by Automated counOrdered By: Conner Griffith on 10-26-2022 WBC corrected for nucl RBC Auto (Bld) [#/Vol] 6.3 10*3/uL 3.8-11.6 [facility] Lipaseon 10-26-2022 Lipase [Catalytic activity/Vol] 37.0 U/L Normal [facility] Comment on above: Result Comment: PERF ORMED BY: [place] [address] PATHOLOGIST ASSEMBLER CLIP ON SUNGLASSES ROOSEVELT KEYES M.D. Performed By: #### H EPATIC, CBC, BMP, LIPASE #### [facility] [address] Lymphocytes Auto (Bld) [#/Vo l]Ordered By: Conner Griffith on 10-26-2022 Lymphocytes (Bld) [#/Vol] 1.9 10*3/uL 1.00-4.8 [facility] Lymphocytes/100 WBC Auto (Bl d)Ordered By: Conner Griffith on 10-26-2022 Lymphocytes/100 WBC (Bld) 29.7 % . [facility] MCH Auto (RBC) [Entitic mass ]Ordered By: Cnoner Griffith on 10-26-2022 MCH (RBC) [Entitic mass] 29.3 pg 24.7-34.3 [facility] MCHC Auto (RBC) [Mass/Vol]Or dered By: Conner Griffith on 10-26-2022 MCHC (RBC) [Mass/Vol] 33.1 g/dL 32.0-35.0 [facility] MCV Auto (RBC) [Entitic vol] Ordered By: Conner Griffith on 10-26-2022 MCV (RBC) [Entitic vol] 88.5 fL 80-100 [facility] Monocyte distribution width [Entitic volume] in Blood by AutomatedOrdered By: Conner Griffith on 10-26-2022 Monocyte distribution width Auto (Bld) [Entitic vol] 16.27 % 0.00-20.00 [facility] Monocytes Auto (Bld) [#/Vol] Ordered By: Conner Griffith on 10-26-2022 Monocytes (Bld) [#/Vol] 0.4 10*3/uL 0.0-0.8 [facility] Monocytes/100 WBC Auto (Bld) Ordered By: Conner Griffith on 10-26-2022 Monocytes/100 WBC (Bld) 7.1 % . [facility] Neutrophils Auto (Bld) [#/Vo l]Ordered By: Conner Griffith on 10-26-2022 Neutrophils (Bld) [#/Vol] 3.7 10*3/uL 1.8-7.7 [facility] Neutrophils/100 WBC Auto (Bl d)Ordered By: Conner Griffith on 10-26-2022 Neutrophils/100 WBC (Bld) 59.3 % . [facility] Nitrite Test strip Ql (U)Ord ered By: Conner Griffith on 10-26-2022 Nitrite Ql (U) Negative Negative [facility] No Panel InformationOrdered By: Conner Griffith on 10-26-2022 Estimated GFR () > 60 mL/Min [facility] Comment on above: GFR estimated refere nce range: According to KDOQI guidelines, <60 ml/min/1.73m2 is sufficient to diagnose a patient with chronic kidney disease. Pharmacy Creatinine Clearance (Chem 93.01 [facility] Nucleated erythrocytes [Pres ence] in Blood by Automated countOrdered By: Conner Griffith on 10-26-2022 Nucleated RBC Auto Ql (Bld) 0.3 /100{WBC} 0-0.5 [facility] Partial Thromboplastin Timeo n 10-26-2022 aPTT Coag (Bld) [Time] 30.8 s Normal 25.1-36.5 [facility] Comment on above: Result Comment: PERF ORMED BY: [place] [address] PATHOLOGIST ASSEMBLER CLIP ON SUNGLASSES ROOSEVELT KEYES M.D. Performed By: #### H EPATIC, CBC, BMP, LIPASE #### [address] Platelet mean volume Auto (B ld) [Entitic vol]Ordered By: Conner Griffith on 10-26-2022 Platelet mean volume (Bld) [Entitic vol] 7.5 fL 6.3-10.7 [facility] Platelet poor plasma interna tional normalized ratio (INR) by coagulation assay (relatOrdered By: Conner Griffith on 10-26-2022 INR Coag (PPP) [Relative time] 0.9 {INR} [facility] Comment on above: INR Therapeutic Rang e A) Pre- and Peroperative OAT started two weeks before surgery. NOT HIP SURGERY: 1.5 - 2.5 HIP SURGERY: 2 - 3B) Primary and secondary prevention of venous THROMBOSIS: 2 - 3C) Active venous thrombosis, pulmonary embolismand prevention of recurrent venous thrombosis: 2 - 3D) Prevention of arterial thromboembolismincluding patients with mechanical heart valves: 3 - 4.5 Platelets Auto (Bld) [#/Vol] Ordered By: Conner Griffith on 10-26-2022 Platelets (Bld) [#/Vol] 379 10*3/uL 150-450 [facility] Protein Auto test strip (U) [Mass/Vol]Ordered By: Conner Griffith on 10-26-2022 Protein (U) [Mass/Vol] Negative Negative [facility] Protein [Mass/volume] in Ser um or PlasmaOrdered By: Conner Griffith on 10-26-2022 Protein [Mass/Vol] 6.8 g/dL 6.1-7.9 [facility] Prothrombin Time INRon 10-26 INR Coag (PPP) [Relative time] 0.9 {INR} Normal [facility] Comment on above: Result Comment: INR Therapeutic Range A) Pre- and Peroperative OAT started two weeks before surgery. NOT HIP SURGERY: 1.5 - 2.5 HIP SURGERY: 2 - 3 B) Primary and secondary prevention of venous THROMBOSIS: 2 - 3 C) Active venous thrombosis, pulmonary embolism and prevention of recurrent venous thrombosis: 2 - 3 D) Prevention of arterial thromboembolism including patients with mechanical heart valves: 3 - 4.5 Performed By: #### H EPATIC, CBC, BMP, LIPASE #### [facility] [address] PT Coag (PPP) [Time] 10.6 s Normal 9.0-12.9 [facility] Comment on above: Performed By: #### H EPATIC, CBC, BMP, LIPASE #### [facility] [address] RBC Auto (Bld) [#/Vol]Ordere d By: Conner Griffith on 10-26-2022 RBC (Bld) [#/Vol] 4.14 10*6/uL 3.60-5.00 [facility] Serum or plasma alanine cooley otransferase measurement without P-5'-P (enzymatic activiOrdered By: Conner Griffith on 10-26-2022 ALT No additional P-5'-P [Catalytic activity/Vol] 18 U/L 10-60 [facility] Serum or plasma albumin/glob ulin mass ratioOrdered By: Conner Griffith on 10-26-2022 Albumin/Globulin [Mass ratio] 1.1 {ratio} [facility] Serum or plasma alkaline augustin sphatase measurement (enzymatic activity/volume)Ordered By: Conner Griffith on 10-26-2022 ALP [Catalytic activity/Vol] 121 U/L 32-92 [facility] Serum or plasma anion gap de terminationOrdered By: Conner Griffith on 10-26-2022 Anion gap [Moles/Vol] 11.3 mmol/L 6.0-15.0 [facility] Serum or plasma aspartate am inotransferase measurement (enzymatic activity/volume)Ordered By: Conner Griffith on 10-26-2022 AST [Catalytic activity/Vol] 19 U/L 10-42 [facility] Serum or plasma calcium julee urement (mass/volume)Ordered By: Conner Griffith on 10-26-2022 Calcium [Mass/Vol] 8.9 mg/dL 8.2-10.2 [facility] Serum or plasma chloride julio surement (moles/volume)Ordered By: Conner Griffith on 10-26-2022 Chloride [Moles/Vol] 108 mmol/L 95-114 [facility] Serum or plasma glucose julee urement (mass/volume)Ordered By: Conner Griffith on 10-26-2022 Glucose [Mass/Vol] 95 mg/dL 70-100 [facility] Comment on above: ADA recommended refe rence rangeRandom Glucose Reference Range is dependent on time and content of last meal. Glucose of more than 200 mg/dL in a nonstressed, ambulatory subject supports the diagnosis of Diabetes Mellitus. Serum or plasma potassium me asurement (moles/volume)Ordered By: Conner Griffith on 10-26-2022 Potassium [Moles/Vol] 3.4 mmol/L 3.5-5.1 [facility] Serum or plasma sodium measu rement (moles/volume)Ordered By: Conner Griffith on 10-26-2022 Sodium [Moles/Vol] 141 mmol/L 136-146 [facility] Serum or plasma total biliru bin measurement (mass/volume)Ordered By: Conner Griffith on 10-26-2022 Bilirubin [Mass/Vol] 0.4 mg/dL 0.3-1.2 [facility] Serum or plasma total carbon dioxide measurement (moles/volume)Ordered By: Conner Griffith on 10-26-2022 CO2 [Moles/Vol] 25.1 mmol/L 22.0-30.0 [facility] Serum or plasma urea nitroge n measurement (mass/volume)Ordered By: Conner Griffith on 10-26-2022 Urea nitrogen [Mass/Vol] 18 mg/dL 9-23 [facility] Specific gravity Auto test s trip (U) [Rel density]Ordered By: Conner Griffith on 10-26-2022 Specific gravity (U) [Rel density] 1.019 1.001-1.030 [facility] Squamous epithelial cells de tection in urine sediment by light microscopyOrdered By: Conner Griffith on 10-26-2022 Epithelial cells.squamous LM Ql (Urine sed) 1-2 [HPF] 0-2 [facility] Urine bacteria detection by automated methodOrdered By: Conner Griffith on 10-26-2022 Bacteria Auto Ql (U) None seen None Seen [facility] Urine clarity by refractomet ry automatedOrdered By: Conner Griffith on 10-26-2022 Clarity Refractometry automated (U) Clear Clear [facility] Urine glucose measurement by automated test strip (mass/volume)Ordered By: Conner Griffith on 10-26-2022 Glucose Auto test strip (U) [Mass/Vol] Normal mg/dL Normal [facility] Urine hemoglobin detection b y automated test stripOrdered By: Conner Griffith on 10-26-2022 Hemoglobin Auto test strip Ql (U) Negative Negative [facility] Urine lactic acid measuremen tOrdered By: Conner Griffith on 10-26-2022 Lactate (U) [Moles/Vol] 1.0 mmol/L 0.5-2.2 [facility] Urine leukocyte esterase det ection by automated test stripOrdered By: Conner Griffith on 10-26-2022 Leukocyte esterase Auto test strip Ql (U) 1+ Negative [facility] Urobilinogen Auto test strip (U) [Mass/Vol]Ordered By: Conner Griffith on 10-26-2022 Urobilinogen (U) [Mass/Vol] Normal mg/dL Normal [facility] WBC Auto (Bld) [#/Vol]Ordere d By: Conner Griffith on 10-26-2022 WBC (Bld) [#/Vol] 6.3 10*3/uL 3.8-11.6 [facility] pH Auto test strip (U)Ordere d By: Conner Griffith on 10-26-2022 pH (U) 6.5 [pH] 5.0-9.0 [facility] Auth for Release of Medical Recordson 10-25-2022 Auth for Release of Medical Records [id number]:127 [facility] CBC AUTO DIFFon 09-21-2022 BASO # 0.0 103/ul Normal 0.0-0.1 [facility] Comment on above: Performed By: #### C BC ####[facility] [address] [place] [address]Dr. Tadeo Smyth Basophils/100 WBC (Bld) 0.4 % Normal 0.2-2.0 [facility] Comment on above: Performed By: #### C BC ####[facility] [address] [place] [address]Dr. Tadeo Haja EO # 0.1 103/ul Normal 0.0-0.7 [facility] Comment on above: Performed By: #### C BC ####[facility] [address] [place] [address]Dr. Tadeo Smyth Eosinophils/100 WBC (Bld) 1.8 % Normal 0.9-7.0 [facility] Comment on above: Performed By: #### C BC ####[facility] [address] [place] [address]Dr. Tadeo Smyth Erythrocyte distribution width (RBC) [Ratio] 13.8 % Normal 11.0-15.0 [facility] Comment on above: Performed By: #### C BC ####[facility] [address] [place], [place] [address]Dr. Tadeo Smyth Hematocrit (Bld) [Volume fraction] 41.0 % Normal 36.0-48.0 [facility] Comment on above: Performed By: #### C BC ####[facility] [address] [place], [place] [address]Dr. Tadeo Smyth Hemoglobin (Bld) [Mass/Vol] 13.3 g/dL Normal 12.0-16.0 [facility] Comment on above: Performed By: #### C BC ####[facility] X[address]ummwzi[address] [place], [place] [address]Dr. Tadeo Smyth IG # 0.01 10e3/ul Normal 0.00-0.03 [facility] Comment on above: Performed By: #### C BC ####[facility] K[address] [place], [place] [address]Dr. Tadeo Smyth IG % 0.1 % Normal 0.0-0.5 [facility] Comment on above: Performed By: #### C BC ####[facility] Sjtaphexge[address] [place], [place] [address]Dr. Tadeo Smyth LYMPH # 1.7 103/ul Normal 1.2-3.8 [facility] Comment on above: Performed By: #### C BC ####[facility] [address]otrs[address] [place], [place] [address]Dr. Tadeo Smyth Lymphocytes/100 WBC (Bld) 24.8 % Normal 20.5-60.0 [facility] Comment on above: Performed By: #### C BC ####[facility] Kcex[address]sesfp[address] [place], [place] [address]Dr. Tadeo Smyth MANUAL DIFF REQ NO Normal [facility] Comment on above: Performed By: #### C BC ####[facility] O[address] [place], [place] [id number]. Tadeo Smyth MCH (RBC) [Entitic mass] 29.0 pg Normal 26.7-34.0 [facility] Comment on above: Performed By: #### C BC ####[facility] [address] [place] [address]Dr. Tadeo Smyth MCHC (RBC) [Mass/Vol] 32.4 g/dL Normal 29.9-35.2 [facility] Comment on above: Performed By: #### C BC ####[facility] [address] [place] [address]Dr. Tadeo Smyth MCV (RBC) [Entitic vol] 89.3 fL Normal 81.0-99.0 [facility] Comment on above: Performed By: #### C BC ####[facility] [address] [place] [address]Dr. Tadeo Haja MONO # 0.5 103/ul Normal 0.3-0.8 [facility] Comment on above: Performed By: #### C BC ####[facility] C[address]jwj[address] [place], [place] [address]Dr. Tadeo Haja Monocytes/100 WBC (Bld) 6.9 % Normal 1.7-12.0 [facility] Comment on above: Performed By: #### C BC ####[facility] [address] [place] [address]Dr. Tadeo Smyth NEUT # 4.5 103/ul Normal 1.4-6.5 [facility] Comment on above: Performed By: #### C BC ####[facility] Ymq[address]frgtn[address] [place], [place] [address]Dr. Tadeo Haja Neutrophils/100 WBC (Bld) 66.0 % Normal 43.0-75.0 [facility] Comment on above: Performed By: #### C BC ####[facility] [address]sy[address] [place] [address]Dr. Tadeo Haja Platelet mean volume (Bld) [Entitic vol] 8.8 fL Critically low 9.5-13.5 [facility] Comment on above: Performed By: #### C BC ####[facility] [address] [place] [id number]. Tadeo Smyth PLT 384 103/ul Normal 150-450 [facility] Comment on above: Performed By: #### C BC ####[facility] [address] [place] [id number]. Tadeo Smyth RBC 4.59 106/ul Normal 4.20-5.40 [facility] Comment on above: Performed By: #### C BC ####[facility] [address]pcvi[address] [place] [address]Dr. Tadeo Smyth WBC 6.8 103/ul Normal 4.0-11.0 [facility] Comment on above: Performed By: #### C BC ####[facility] Myadxizzlk[address] [place], [place] [address]Dr. Margotnicole Smyth PROF CHEM 8 (BAS METB)on Anion gap [Moles/Vol] 13.8 mmol/L Normal [facility] Comment on above: Performed By: #### B MP ####[facility] M[address]shmctps[address] [place], [place] [address]Dr. Tadeo Smyth Calcium [Mass/Vol] 9.6 mg/dL Normal 8.5-10.1 [facility] Comment on above: Performed By: #### B MP ####[facility] [address]vuxbl[address] [place], [place] [address]Dr. Tadeo Smyth Chloride [Moles/Vol] 106 mmol/L Normal 98-107 [facility] Comment on above: Performed By: #### B MP ####[facility] [address]zv[address] [place], [place] [address]Dr. Tadeo Smyth CO2 [Moles/Vol] 25.9 mmol/L Normal 21.0-32.0 [facility] Comment on above: Performed By: #### B MP ####[facility] Aedluthxqv[address] [place], [place] [address]Dr. Tadeo Smyth Creatinine [Mass/Vol] 0.92 mg/dL Normal 0.55-1.02 [facility] Comment on above: Performed By: #### B MP ####[facility] [address] [place] [address]Dr. Tadeo Smyth EGFR-AF GREEK >60 Normal >=60 [facility] Comment on above: Performed By: #### B MP ####[facility] [address] [place] [address]Dr. Tadeo Smyth EGFR-NON AF GREEK >60 Normal >=60 [facility] Comment on above: Performed By: #### B MP ####[facility] T[address]opisotd27[address] [place] [address]Dr. Tadeo Smyth Glucose [Mass/Vol] 98 mg/dL Normal 74-106 [facility] Comment on above: Performed By: #### B MP ####[facility] Exfwgkwxme[address] [place], [place] [address]Dr. Margotnicole Smyth Potassium [Moles/Vol] 3.7 mmol/L Normal 3.5-5.1 [facility] Comment on above: Performed By: #### B MP ####[facility] [address] [place], [place] [address]Dr. Tadeo Smyth Sodium [Moles/Vol] 142 mmol/L Normal 136-145 [facility] Comment on above: Performed By: #### B MP ####[facility] Afhhagwhrl[address] [place], [place] [address]Dr. Tadeo Smyth Urea nitrogen [Mass/Vol] 19.0 mg/dL Critically high 7.0-18.0 [facility] Comment on above: Performed By: #### B MP ####[facility] Nsxsrjfytr[address] [place], [place] [address]Dr. Margotnicole Haja Urea nitrogen/Creatinine [Mass ratio] 20.7 mg/mg Normal [facility] Comment on above: Performed By: #### B MP ####[facility] Cfeomimbcl[address] [place], [place] [address]Dr. Tadeo Haja XR KUB 1 VIEWon 09-21-2022 XR KUB 1 VIEW Normal [facility] Lab Reportson 09-20-2022 Lab Reports [id number]:127 [facility] RAD - CT Reporton 09-20-[address] RAD - CT Report [id number]:127 [facility] RAD - MISCon 09-20-2022 RAD - MISC [id number]:127 [facility] AMYLASEon 09-18-2022 Amylase [Catalytic activity/Vol] 58 U/L Normal 25-115 [facility] Comment on above: Performed By: #### L IPA, CMP, VIJI ####[facility] [address] [place] [address]Dr. Tadeo Smyth CBC AUTO DIFFon 09-18-2022 BASO # 0.0 103/ul Normal 0.0-0.1 [facility] Comment on above: Performed By: #### C BC ####[facility] [address]rtkp[address] [place] [address]Dr. Tadeo Smyth Basophils/100 WBC (Bld) 0.3 % Normal 0.2-2.0 [facility] Comment on above: Performed By: #### C BC ####[facility] [address]olg[address] [place], [place] [address]Dr. Tadeo Smyth EO # 0.1 103/ul Normal 0.0-0.7 [facility] Comment on above: Performed By: #### C BC ####[facility] I[address]wh[address]owen4[address] [place] [address]Dr. Tadeo Smyth Eosinophils/100 WBC (Bld) 1.8 % Normal 0.9-7.0 [facility] Comment on above: Performed By: #### C BC ####[facility] [address]gnqawh[address] [place], [place] [address]Dr. Tadeo Smyth Erythrocyte distribution width (RBC) [Ratio] 13.7 % Normal 11.0-15.0 [facility] Comment on above: Performed By: #### C BC ####[facility] Dkfluwvbql[address] [place], [place] [address]Dr. Tadeo Smyth Hematocrit (Bld) [Volume fraction] 37.4 % Normal 36.0-48.0 [facility] Comment on above: Performed By: #### C BC ####[facility] [address]ek[address]xd[address] [place] [address]DrNeo Smyth Hemoglobin (Bld) [Mass/Vol] 12.3 g/dL Normal 12.0-16.0 [facility] Comment on above: Performed By: #### C BC ####[facility] Hsxklintsv[address] [place], [place] [address]DrNeo Smyth IG # 0.02 10e3/ul Normal 0.00-0.03 [facility] Comment on above: Performed By: #### C BC ####[facility] Exbqeebdqz83[address] [place], [place] [address]DrNeo Smyth IG % 0.3 % Normal 0.0-0.5 [facility] Comment on above: Performed By: #### C BC ####[facility] Sx[address]iv[address]sfv[address] [place], [place] [address]DrNeo Smyth LYMPH # 2.2 103/ul Normal 1.2-3.8 [facility] Comment on above: Performed By: #### C BC ####[facility] Miccwlzmqa[address] [place], [place] [address]DrNeo Smyth Lymphocytes/100 WBC (Bld) 29.3 % Normal 20.5-60.0 [facility] Comment on above: Performed By: #### C BC ####[facility] Arcodrtrie[address] [place], [place] [address]DrNeo Smyth MANUAL DIFF REQ NO Normal [facility] Comment on above: Performed By: #### C BC ####[facility] [address]cf[address] [place] [address]DrNeo Smyth MCH (RBC) [Entitic mass] 29.0 pg Normal 26.7-34.0 [facility] Comment on above: Performed By: #### C BC ####[facility] [address]pmxnb[address] [place], [place] [address]DrNeo Smyth MCHC (RBC) [Mass/Vol] 32.9 g/dL Normal 29.9-35.2 [facility] Comment on above: Performed By: #### C BC ####[facility] [address]vsyly[address] [place] [address]DrNeo Smyth MCV (RBC) [Entitic vol] 88.2 fL Normal 81.0-99.0 [facility] Comment on above: Performed By: #### C BC ####[facility] Kos[address]rijdhk[address] [place] [address]DrNeo Smyth MONO # 0.5 103/ul Normal 0.3-0.8 [facility] Comment on above: Performed By: #### C BC ####[facility] Ygclgwumez8654 [place] [address]DrNeo Smyth Monocytes/100 WBC (Bld) 6.4 % Normal 1.7-12.0 [facility] Comment on above: Performed By: #### C BC ####[facility] Aypzolzxtp[address] [place], [place] [address]Dr. Tadeo Smyth NEUT # 4.7 103/ul Normal 1.4-6.5 [facility] Comment on above: Performed By: #### C BC ####[facility] Z[address]wnmrqk[address] [place], [place] [address]Dr. Tadeo Smyth Neutrophils/100 WBC (Bld) 61.9 % Normal 43.0-75.0 [facility] Comment on above: Performed By: #### C BC ####[facility] Qfhtvmxued2195 [place] [address]DrNeo Smyth Platelet mean volume (Bld) [Entitic vol] 9.0 fL Critically low 9.5-13.5 [facility] Comment on above: Performed By: #### C BC ####[facility] [address]byjc[address] [place], [place] [address]Dr. Tadeo Smyth PLT 395 103/ul Normal 150-450 [facility] Comment on above: Performed By: #### C BC ####[facility] Dzbuf[address]lgod260[address] [place] [id number] Smyth RBC 4.24 106/ul Normal 4.20-5.40 [facility] Comment on above: Performed By: #### C BC ####[facility] [address]foc[address] [place] [address]Dr. Tadeo Smyth WBC 7.6 103/ul Normal 4.0-11.0 [facility] Comment on above: Performed By: #### C BC ####[facility] Ecztipoduf[address] [place], [place] [address]Dr. Tadeo Smyth CT ABD/PELV W CONon 09-18-[address] ABD/PELV W CON Normal [facility] ER URINE PROFILEon 3 Bilirubin Ql (U) SMALL Abnormal NEGATIVE [facility] Comment on above: Performed By: #### KAROL MERCHANT ####[facility] [address]fhlzsz[address] [place], [place] [address]Dr. Tadeo Smyth Clarity (U) CLEAR Normal CLEAR [facility] Comment on above: Performed By: #### KAROL MERCHANT ####[facility] Ixl[address]wzai[address] [place], [place] [address]Dr. Tadeo Smyth Color (U) DK. YELLOW Normal YELLOW [facility] Comment on above: Performed By: #### KAROL MERCHANT ####[facility] [address]xoupxpjt[address] [place], [place] [address]Dr. Tadeo CAMARGOD A micrscopic examina tion will be performed if indicated. Normal [facility] Comment on above: Performed By: #### KAROL MERCHANT ####[facility] Djbyvdijpv[address] [place], [place] [address]Dr. Tadeo Smyth Glucose Ql (U) Negative Normal NEGATIVE [facility] Comment on above: Performed By: #### KAROL MERCHANT ####[facility] Imgegdmtnu[address] [place], [place] [address]Dr. Tadeo Smyth Hemoglobin Ql (U) SMALL Abnormal NEGATIVE [facility] Comment on above: Performed By: #### KAROL MERCHANT ####[facility] [address]ldfdpjxx[address] [place], [place] [address]Dr. Tadeo Smyth Ketones Ql (U) Negative Normal NEGATIVE [facility] Comment on above: Performed By: #### Matthew FRANCISCO UMICRO ####[facility] Mhvaoexdrr46[address] [place] [address]Dr. Tadeo Smyth LEUKOCYTES Negative Normal NEGATIVE [facility] Comment on above: Performed By: #### Matthew FRANCISCO UMICRO ####[facility] Qenwjlfqaw3[address] [place] [address]Dr. Tadeo Smyth Nitrite Ql (U) Negative Normal NEGATIVE [facility] Comment on above: Performed By: #### Matthew FRANCISCO UMICRO ####[facility] Ykwwjdjhae217[address] [place] [address]Dr. Tadeo Smyth pH (U) 5.5 [pH] Normal 5-9 [facility] Comment on above: Performed By: #### Matthew FRANCISCO UMICRO ####[facility] Aclwaealvu[address] [place], [place] [address]Dr. Tadeo Smyth SPEC GRAVITY >=1.030 Abnormal 1.005-<=1.[address] [place] [address] Comment on above: Performed By: #### Matthew FRANCISCO UMICRO ####[facility] [address]jcpdnbsm[address] [place], [place] [address]Dr. Tadeo Smyth UA PROTEIN TRACE Normal NEGATIVE/ TRACE [facility] Comment on above: Performed By: #### Mtathew FRANCISCO UMICRO ####[facility] Ekhcqairuk[address] [place], [place] [address]Dr. Tadeo Smyth UR MICRO IND INDICATED Normal [facility] Comment on above: Performed By: #### Matthew FRANCISCO UMICRO ####[facility] [address]engdrdvt[address] [place], [place] [address]Dr. Tadeo Smyth Urobilinogen Qn (U) 0.2 {Benito'U}/dL Normal 0.2 - 1. 0 [facility] Comment on above: Performed By: #### Matthew FRANCISCO UMICRO ####[facility] Isuzpvunsp[address] [place], [place] [address]Dr. Tadeo Smyth LACTATE/LACTIC ACIDon 2022 Lactate [Moles/Vol] 1.1 mmol/L Normal 0.4-1.9 [facility] Comment on above: Performed By: #### L ACT ####[facility] [address]ktmmvb[address] [place] [address]Dr. Tadeo Smyth LIPASEon 09-18-2022 Lipase [Catalytic activity/Vol] 75.0 U/L Normal 73.0-393.0 [facility] Comment on above: Performed By: #### L IPA, CMP, VIJI ####[facility] Jetrjmvsxs[address] [place], [place] [address]Dr. Tadeo Smyth PROF 14(COMP METB)on 023 Albumin [Mass/Vol] 3.4 g/dL Normal 3.4-5.0 [facility] Comment on above: Performed By: #### L IPA, CMP, VIJI ####[facility] Auntwmnyfr[address] [place], [place] [address]Dr. Tadeo Smyth Albumin/Globulin [Mass ratio] 0.9 {ratio} Normal [facility] Comment on above: Performed By: #### L IPA, CMP, VIJI ####[facility] Zrpbjtfvcf[address] [place], [place] [address]Dr. Tadeo Smyth ALP [Catalytic activity/Vol] 164 U/L Critically high 46-116 [facility] Comment on above: Performed By: #### L IPA, CMP, VIJI ####[facility] Nczbdkxzlx27[address] [place] [address]Dr. Tadeo Smyth ALT [Catalytic activity/Vol] 29 U/L Normal 14-59 [facility] Comment on above: Performed By: #### L IPA, CMP, VIJI ####[facility] [address]ksyyzbl060[address] [place] [address]Dr. Tadeo Smyth Anion gap [Moles/Vol] 12.3 mmol/L Normal [facility] Comment on above: Performed By: #### L IPA, CMP, VIJI ####[facility] Z[address]ebaoh[address] [place], [place] [address]Dr. Tadeo Smyth AST [Catalytic activity/Vol] 30 U/L Normal 15-37 [facility] Comment on above: Performed By: #### L IPA, CMP, VIJI ####[facility] [address]xhp[address] [place] [address]Dr. Tadeo Smyth Bilirubin [Mass/Vol] 0.3 mg/dL Normal 0.2-1.0 [facility] Comment on above: Performed By: #### L IPA, CMP, VIJI ####[facility] [address]aslffoggw[address] [place] [address]Dr. Tadeo Smyth Calcium [Mass/Vol] 8.9 mg/dL Normal 8.5-10.1 [facility] Comment on above: Performed By: #### L IPA, CMP, VIJI ####[facility] Zrxzmxsquj[address] [place], [place] [address]Dr. Tadeo Smyth Chloride [Moles/Vol] 103 mmol/L Normal 98-107 [facility] Comment on above: Performed By: #### L IPA, CMP, VIJI ####[facility] Lqbnkilfnn[address] [place], [place] [address]Dr. Tadeo Smyth CO2 [Moles/Vol] 27.8 mmol/L Normal 21.0-32.0 [facility] Comment on above: Performed By: #### L IPA, CMP, VIJI ####[facility] [id number] [place], [place] [address]Dr. Tadeo Smyth Creatinine [Mass/Vol] 0.89 mg/dL Normal 0.55-1.02 [facility] Comment on above: Performed By: #### L IPA, CMP, VIJI ####[facility] Fopxvolozq8[address] [place], [place] [address]Dr. Tadeo Smyth EGFR-AF GREEK >60 Normal >=60 [facility] Comment on above: Performed By: #### L IPA, CMP, VIJI ####[facility] Ujfjiqktd[address] [place], [place] [address]Dr. Tadeo Smyth EGFR-NON AF GREEK >60 Normal >=60 [facility] Comment on above: Performed By: #### L IPA, CMP, VIJI ####[facility] Xworrjhaoo[address] [place], [place] [address]Dr. Tadeo Smyth Globulin (S) [Mass/Vol] 3.9 g/dL Normal [facility] Comment on above: Performed By: #### L IPA, CMP, VIJI ####[facility] Ookqtbzijs[address] [place] [address]Dr. Tadeo Smyth Glucose [Mass/Vol] 96 mg/dL Normal 74-106 [facility] Comment on above: Performed By: #### L IPA, CMP, VIJI ####[facility] Emcyzsiexy4[address] [place] [address]Dr. Tadeo Smyth Potassium [Moles/Vol] 4.1 mmol/L Normal 3.5-5.1 [facility] Comment on above: Performed By: #### L IPA, CMP, VIJI ####[facility] Vkncdxhnzr2702 [place] [address]Dr. Tadeo Smyth Protein [Mass/Vol] 7.3 g/dL Normal 6.4-8.2 [facility] Comment on above: Performed By: #### L IPA, CMP, VIJI ####[facility] Mvxlicrzsj06[address] [place], [place] [address]Dr. Tadeo Smyth Sodium [Moles/Vol] 139 mmol/L Normal 136-145 [facility] Comment on above: Performed By: #### L IPA, CMP, VIJI ####[facility] Kbqvfenlkc[address] [place], [place] [address]Dr. Tadeo Smyth Urea nitrogen [Mass/Vol] 19.0 mg/dL Critically high 7.0-18.0 [facility] Comment on above: Performed By: #### L IPA, CMP, VIJI ####[facility] Dyyyavmndd035[address] [place] [address]Dr. Tadeo Smyth Urea nitrogen/Creatinine [Mass ratio] 21.3 mg/mg Normal [facility] Comment on above: Performed By: #### L IPA, CMP, VIJI ####[facility] Qdkvvbibvn3252 [place] [address]Dr. Tadeo Smyth URINE MICROSCOPIC ONLYon BACTERIA TRACE Abnormal NONE SEEN [facility] Comment on above: Performed By: #### E KAROL FRANCISCO ####[facility] Fmylutuwlj[address] [place] [address]Dr. Tadeo Smyth Bacteria identified Cx Nom (U) NOT INDICATED Normal [facility] Comment on above: Performed By: #### SANDRO MERCHANTRO ####[facility] Hjzwfaumxu[address] [place], [place] [address]Dr. Tadeo Smyth CAST NONE SEEN Normal NONE SEEN [facility] Comment on above: Performed By: #### RANDI MERCHANTICRO ####[facility] Ioqhqhrmbn9[address] [place], [place] [address]Dr. Tadeo Smyth Crystals LM Nom (Urine sed) SEEN Abnormal NONE SEEN [facility] Comment on above: Performed By: #### RANDI MERCHANTICRO ####[facility] Cdzrlqlxlx[address] [place], [place] [address]Dr. Tadeo Smyth Epithelial cells LM Ql (Urine sed) RARE Normal NONE SEEN /RARE [facility] Comment on above: Performed By: #### RANDI MERCHANTICRO ####[facility] Qwduffzfck7[address] [place], [place] [address]Dr. Tadeo Smyth MUCOUS TRACE Abnormal NONE SEEN The [facility] Comment on above: Performed By: #### Matthew FRANCISCO ICRO ####[facility] Oltypxdnac8[address] [place], [place] [address]Dr. Tadeo Smyth RBC 0-2 Normal 0-2 [facility] Comment on above: Performed By: #### Matthew FRANCISCO UMICRO ####[facility] Bpyepcyash[address] [place], [place] [address]Dr. Tadeo Smyth WBC 0-2 Abnormal NONE SEEN The [facility] Comment on above: Performed By: #### Matthew FRANCISCO UMICRO ####[facility] V[address]dbqtzfmq[address] [place], [place] [address]Dr. Tadeo Smyth CBC AUTO DIFFon 09-14-2022 BASO # 0.0 103/ul Normal 0.0-0.1 [facility] Comment on above: Performed By: #### C BC ####[facility] Exjjpgvgzl20[address] [place], [place] [address]Dr. Tadeo Smyth Basophils/100 WBC (Bld) 0.3 % Normal 0.2-2.0 [facility] Comment on above: Performed By: #### C BC ####[facility] Ijynlrcehy[address] [place] [address]Dr. Tadeo Smyth EO # 0.2 103/ul Normal 0.0-0.7 [facility] Comment on above: Performed By: #### C BC ####[facility] Jkrwlfihqo6189 [place] [address]Dr. Tadeo Smyth Eosinophils/100 WBC (Bld) 1.1 % Normal 0.9-7.0 [facility] Comment on above: Performed By: #### C BC ####[facility] Xgimvxpxey[address] [place], [place] [address]Dr. Tadeo Smyth Erythrocyte distribution width (RBC) [Ratio] 13.7 % Normal 11.0-15.0 [facility] Comment on above: Performed By: #### C BC ####[facility] Kadcizkwoe[address] [place], [place] [address]Dr. Tadeo Smyth Hematocrit (Bld) [Volume fraction] 41.3 % Normal 36.0-48.0 [facility] Comment on above: Performed By: #### C BC ####[facility] Mysgzlubux8525[address] [place], [place] [address]Dr. Tadeo Smyth Hemoglobin (Bld) [Mass/Vol] 13.6 g/dL Normal 12.0-16.0 [facility] Comment on above: Performed By: #### C BC ####[facility] Poqpjexlou6[address] [place], [place] [address]Dr. Tadeo Smyth IG # 0.05 10e3/ul Critically high 0.00-0.03 [facility] Comment on above: Performed By: #### C BC ####[facility] Xmxapmokfj[address] [place], [place] [address]Dr. Tadeo Smyth IG % 0.4 % Normal 0.0-0.5 [facility] Comment on above: Performed By: #### C BC ####[facility] Edbljdjaqb1538[address] [place], [place] [address]DrNeo Margotnicole Smyth LYMPH # 2.2 103/ul Normal 1.2-3.8 [facility] Comment on above: Performed By: #### C BC ####[facility] Vldohihagl7[address] [place] [address]Dr. Margotnicole Smyth Lymphocytes/100 WBC (Bld) 16.3 % Critically low 20.5-60.0 [facility] Comment on above: Performed By: #### C BC ####[facility] Zmpyncnwts9396 [place] [address]DrNeo Smyth MANUAL DIFF REQ NO Normal [facility] Comment on above: Performed By: #### C BC ####[facility] Dnwqjwxgmx5527 [place] [id number]. Tadeo Smyth MCH (RBC) [Entitic mass] 28.9 pg Normal 26.7-34.0 [facility] Comment on above: Performed By: #### C BC ####[facility] Zororolhfv[address] [place], [place] [address]Dr. Tadeo Smyth MCHC (RBC) [Mass/Vol] 32.9 g/dL Normal 29.9-35.2 [facility] Comment on above: Performed By: #### C BC ####[facility] Obsqrsodbb1467[address] [place], [place] [address]DrNeo Smyth MCV (RBC) [Entitic vol] 87.9 fL Normal 81.0-99.0 [facility] Comment on above: Performed By: #### C BC ####[facility] Iugtxcfykr[address] [place], [place] [address]DrNeo Smyth MONO # 0.7 103/ul Normal 0.3-0.8 [facility] Comment on above: Performed By: #### C BC ####[facility] Dwkmj[address]ep[address] [place], [place] [id number] Smyth Monocytes/100 WBC (Bld) 5.1 % Normal 1.7-12.0 [facility] Comment on above: Performed By: #### C BC ####[facility] Opasmriovz07[address] [place], [place] [address]DrNeo Smyth NEUT # 10.3 103/ul Critically high 1.4-6.5 [facility] Comment on above: Performed By: #### C BC ####[facility] Rdmhldkstt7634 [place] [address]Dr. Tadeo Smyth Neutrophils/100 WBC (Bld) 76.8 % Critically high 43.0-75.0 [facility] Comment on above: Performed By: #### C BC ####[facility] Ljhfqhkdpi4158 [place] [address]Dr. Tadeo Smyth Platelet mean volume (Bld) [Entitic vol] 8.8 fL Critically low 9.5-13.5 [facility] Comment on above: Performed By: #### C BC ####[facility] Xwdeqjiuqm7744 [place] [address]Dr. Tadeo Haja PLT 438 103/ul Normal 150-450 [facility] Comment on above: Performed By: #### C BC ####[facility] Vtfqfrvcmu[address] [place], [place] [address]Dr. Tadeo Smyth RBC 4.70 106/ul Normal 4.20-5.40 [facility] Comment on above: Performed By: #### C BC ####[facility] Hylpqgunil[address] [place], [place] [address]Dr. Tadeo Smyth WBC 13.4 103/ul Critically high 4.0-11.0 [facility] Comment on above: Performed By: #### C BC ####[facility] Kaolueimzy4363[address] [place], [place] [address]Dr. Tadeo Haja ER URINE PROFILEon 3 Bilirubin Ql (U) Negative Normal NEGATIVE [facility] Comment on above: Performed By: #### SANDRO MERCHANTRO ####[facility] Ykxhkqgyrh6875 [place] [address]Dr. Tadeo Smyth Clarity (U) CLEAR Normal CLEAR [facility] Comment on above: Performed By: #### SANDRO MERCHANTRO ####[facility] Sqysbxwofw0705 [place] [id number]. Tadeo Smyth Color (U) LT. YELLOW Normal YELLOW [facility] Comment on above: Performed By: #### KAROL MERCHANT ####[facility] Mujjmsqxmf260[address] [place] [address]Dr. Tadeo ENG A micrscopic examina tion will be performed if indicated. Normal [facility] Comment on above: Performed By: #### KAROL MERCHANT ####[facility] Mlqquexats1725 [place] [address]Dr. Tadeo Smyth Glucose Ql (U) Negative Normal NEGATIVE [facility] Comment on above: Performed By: #### KAROL MERCHANT ####[facility] Ouvnxduhxk[address] [place], [place] [address]Dr. Tadeo Smyth Hemoglobin Ql (U) TRACE-INTACT Abnormal NEGATIVE [facility] Comment on above: Performed By: #### KAROL MERCHANT ####[facility] Ciyjyxltty[address] [place], [place] [address]Dr. Tadeo Smyth Ketones Ql (U) Negative Normal NEGATIVE [facility] Comment on above: Performed By: #### KAROL MERCHANT ####[facility] Mdlrkkalcp9[address] [place], [place] [address]Dr. Tadeo Smyth LEUKOCYTES Negative Normal NEGATIVE The [facility] Comment on above: Performed By: #### KAROL MERCHANT ####[facility] [address]zbyhcsnau[address] [place], [place] [address]Dr. Tadeo Smyth Nitrite Ql (U) Negative Normal NEGATIVE [facility] Comment on above: Performed By: #### KAROL MERCHANT ####[facility] Dopdfsshpq[address] [place], [place] [address]Dr. Tadeo Smyth pH (U) 6.5 [pH] Normal 5-9 [facility] Comment on above: Performed By: #### KAROL MERCHANT ####[facility] Rxututipyi5[address] [place], [place] [address]Dr. Tadeo Smyth SPEC GRAVITY 1.020 Normal 1.005-<=1.0 25 [facility] Comment on above: Performed By: #### KAROL MERCHANT ####[facility] Inslctjogi[address] [place], [place] [id number]. Tadeo Smyth UA PROTEIN Negative Normal NEGATIVE/ TRACE The [facility] Comment on above: Performed By: #### KAROL MERCHANT ####[facility] Dqnywxmsxu4096 [place] [address]Dr. Tadeo Smyth UR MICRO IND INDICATED Normal [facility] Comment on above: Performed By: #### KAROL MERCHANT ####[facility] Ufjtsjhsmm4560 [place] [address]Dr. Tadeo Smyth Urobilinogen Qn (U) 0.2 {Benito'U}/dL Normal 0.2 - 1. 0 [facility] Comment on above: Performed By: #### KAROL MERCHANT ####[facility] Vjdhwpccoj[address] [place] [address]Dr. Tadeo Smyth LIPASEon 09-14-2022 Lipase [Catalytic activity/Vol] 117.0 U/L Normal 73.0-393.0 [facility] Comment on above: Performed By: #### H STROPN, CMP, LIPA ####[facility] Tfgcfucqha2832 [place] [address]Dr. Tadeo Smyth PROF 14(COMP METB)on 023 Albumin [Mass/Vol] 3.5 g/dL Normal 3.4-5.0 [facility] Comment on above: Performed By: #### H STROPN, CMP, LIPA ####[facility] Poqhfgemuh6465 [place] [address]Dr. Tadeo Smyth Albumin/Globulin [Mass ratio] 0.8 {ratio} Normal [facility] Comment on above: Performed By: #### H STROPN, CMP, LIPA ####[facility] Bljpemjzqy0209 [place] [address]Dr. Tadeo Smyth ALP [Catalytic activity/Vol] 180 U/L Critically high 46-116 [facility] Comment on above: Performed By: #### H STROPN, CMP, LIPA ####[facility] Jzdixaypdh7571 [place] [address]Dr. Tadeo Smyth ALT [Catalytic activity/Vol] 25 U/L Normal 14-59 [facility] Comment on above: Performed By: #### H STROPN, CMP, LIPA ####[facility] Ktdkvxkaut3189 [place] [address]Dr. Tadeo Smyth Anion gap [Moles/Vol] 14.4 mmol/L Normal Th e [facility] Comment on above: Performed By: #### H STROPN, CMP, LIPA ####[facility] Kixuiquvbw4288 [place] [address]Dr. Tadeo Smyth AST [Catalytic activity/Vol] 14 U/L Critically low 15-37 [facility] Comment on above: Performed By: #### H STROPN, CMP, LIPA ####[facility] Szdfeejdkh0874 [place] [address]Dr. Tadeo Smyth Bilirubin [Mass/Vol] 0.2 mg/dL Normal 0.2-1.0 [facility] Comment on above: Performed By: #### H STROPN, CMP, LIPA ####[facility] Uphdltacdn[address] [place], [place] [address]Dr. Tadeo Smyth Calcium [Mass/Vol] 9.4 mg/dL Normal 8.5-10.1 [facility] Comment on above: Performed By: #### H STROPN, CMP, LIPA ####[facility] Yoitywyzir[address] [place] [address]Dr. Tadeo Smyth Chloride [Moles/Vol] 107 mmol/L Normal 98-107 [facility] Comment on above: Performed By: #### H STROPN, CMP, LIPA ####[facility] Xjjkagxjaj6626 [place] [address]Dr. Tadeo Smyth CO2 [Moles/Vol] 23.9 mmol/L Normal 21.0-32.0 [facility] Comment on above: Performed By: #### H STROPN, CMP, LIPA ####[facility] Lfhraylymi4894 [place] [address]Dr. Tadeo Smyth Creatinine [Mass/Vol] 0.91 mg/dL Normal 0.55-1.02 [facility] Comment on above: Performed By: #### H STROPN, CMP, LIPA ####[facility] Rylosmbmvk[address] [place] [id number]. Tadeo Smyth EGFR-AF GREEK >60 Normal >=60 [facility] Comment on above: Performed By: #### H STROPN, CMP, LIPA ####[facility] Yntfkcaiuy0761 [place] [address]Dr. Tadeo Smyth EGFR-NON AF GREEK >60 Normal >=60 [facility] Comment on above: Performed By: #### H STROPN, CMP, LIPA ####[facility] Jitxvmpfqk4857 [place] [address]Dr. Tadeo Smyth Globulin (S) [Mass/Vol] 4.2 g/dL Normal [facility] Comment on above: Performed By: #### H STROPN, CMP, LIPA ####[facility] Cmystomaof1120 [place] [address]Dr. Tadeo Smyth Glucose [Mass/Vol] 101 mg/dL Normal 74-106 [facility] Comment on above: Performed By: #### H STROPN, CMP, LIPA ####[facility] Yznrffogxp1153 [place] [address]Dr. Tadeo Smyth Potassium [Moles/Vol] 3.3 mmol/L Critically low 3.5-5.1 [facility] Comment on above: Performed By: #### H STROPN, CMP, LIPA ####[facility] Vgbzzzbvdq0855 [place] [address]Dr. Tadeo Smyth Protein [Mass/Vol] 7.7 g/dL Normal 6.4-8.2 [facility] Comment on above: Performed By: #### H STROPN, CMP, LIPA ####[facility] Oshstlmynf53[address] [place] [address]Dr. Tadeo Smyth Sodium [Moles/Vol] 142 mmol/L Normal 136-145 [facility] Comment on above: Performed By: #### H STROPN, CMP, LIPA ####[facility] Iuxfwuwxeo1455 [place] [address]Dr. Tadeo Smyth Urea nitrogen [Mass/Vol] 17.0 mg/dL Normal 7.0-18.0 [facility] Comment on above: Performed By: #### H DIANN FIGUEROA, LIPA ####[facility] Pfldgqmzbu6575 [place] [address]Dr. Tadeo Smyth Urea nitrogen/Creatinine [Mass ratio] 18.7 mg/mg Normal [facility] Comment on above: Performed By: #### H HENRY CMP, LIPA ####[facility] Quexehiadg[address] [place] [address]Dr. Tadeo Smyth TROPONIN, HIGH SENSITIVITYon 09-14-2022 HSTROP 46.6 pg/mL Normal 4.0-51.3 [facility] Comment on above: Result Comment: CUT- OFF POINTS HAVE BEEN ESTABLISHED BASED ON THE FOURTH UNIVERSAL DEFINITIONS OF MYOCARDIALINFARCTION. THE UPPER REFERENCE LIMIT (URL) OF TROPONIN, DEFINED THE 99TH PERCENTILE OFcTnI DISTRIBUTION IN A REFERENCE POPULATION, HAS BEEN CONFIRMED THE DECISION THRESHOLDFOR SD DIAGNOSIS. Performed By: #### H DIANN FIGUEROA, LIPA ####[facility] Lyhblnvbac[address] [place] [address]Dr. Tadeo Smyth URINE MICROSCOPIC ONLYon BACTERIA NONE SEEN Normal NONE SEEN [facility] Comment on above: Performed By: #### KAROL MERCHANT ####[facility] Whycznejkz7107 [place] [address]Dr. Tadeo Smyth Bacteria identified Cx Nom (U) NOT INDICATED Normal [facility] Comment on above: Performed By: #### KAROL MERCHANT ####[facility] Zskjijbjch6[address] [place] [address]Dr. Tadeo Smyth CAST NONE SEEN Normal NONE SEEN The [facility] Comment on above: Performed By: #### SANDRO MERCHANTRO ####[facility] Ubwjvdpafj86[address] [place] [address]Dr. Tadeo Smyth Crystals LM Nom (Urine sed) NONE SEEN Normal NONE SEEN [facility] Comment on above: Performed By: #### SANDRO MERCHANTRO ####[facility] Xlsgcjhhkl0108 [place] [address]Dr. Tadeo Smyth Epithelial cells LM Ql (Urine sed) FEW Abnormal NONE SEEN /RARE The [facility] Comment on above: Performed By: #### E SANDRO FRANCISCORO ####[facility] Wlnicckewe[address] [place] [address]Dr. Tadeo Smyth MUCOUS MODERATE Abnormal NONE SEEN The [facility] Comment on above: Performed By: #### E RANDI FRANCISCOICRO ####[facility] Mycdyjvldb4[address] [place] [id number]. Tadeo Smyth RBC 0-2 Normal 0-2 [facility] Comment on above: Performed By: #### E SANDRO FRANCISCORO ####[facility] Vxjxlqevzz5089 [place] [address]Dr. Tadeo Smyth WBC NONE SEEN Normal NONE SEEN [facility] Comment on above: Performed By: #### SANDRO MERCHANTRO ####[facility] Kxfrakfcln3260 [place] [address]Dr. Tadeo Smyth XR ABD FLAT UP_PA Kasey 09-14 XR ABD FLAT UP_PA CH Normal [facility] VC COMP CONSULTATIONon 09-06 VC COMP CONSULTATION Normal [facility] VC VENOUS REFLUX MACARIO LMTon 0 09-06-2022 VC VENOUS REFLUX MACARIO LMT Normal [facility] XR KUB 1 VIEWon 08-18-2022 XR KUB 1 VIEW Normal [facility] US RUBENS DOP LEG RTon 08-11-20 US RUBENS DOP LEG RT Normal [facility] Provider Letteron 08-10-2022 Provider Letter (Inserted Image. Kristin ble to display) August 10, 2022 [address]ARDOSO [address] [place] [address] CONSTANTINO CARDOSO 1970 Dear Constantino, We have been trying to reach you with no success. It is important that you return our call regarding your referral. Thank you for your prompt attention to this matter. Sincerely, [facility] AMYLASEon 08-08-2022 Amylase [Catalytic activity/Vol] 64 U/L Normal 25-115 [facility] Comment on above: Performed By: #### C MP, VIJI, LIPA, CMADM ####[facility] Ladkiflwqh[address] [place] [id number]. Margotnicole Haja CARDIAC NORA ADMITon 022 CK [Catalytic activity/Vol] 127 U/L Normal 26-192 [facility] Comment on above: Performed By: #### C MP, VIJI, LIPA, CMADM ####[facility] Unhdllxirl0072 [place] [address]Dr. Tadeo Smyth CK.MB [Mass/Vol] 1.71 ng/mL Normal <=3.60 [facility] Comment on above: Performed By: #### C MP, VIJI, LIPA, CMADM ####[facility] Cptcrehqea4232 [place] [address]Dr. Tadeo Smyth HSTROP 36.7 pg/mL Normal 4.0-51.3 [facility] Comment on above: Result Comment: CUT- OFF POINTS HAVE BEEN ESTABLISHED BASED ON THE FOURTH UNIVERSAL DEFINITIONS OF MYOCARDIALINFARCTION. THE UPPER REFERENCE LIMIT (URL) OF TROPONIN, DEFINED THE 99TH PERCENTILE OFcTnI DISTRIBUTION IN A REFERENCE POPULATION, HAS BEEN CONFIRMED THE DECISION THRESHOLDFOR SD DIAGNOSIS. Performed By: #### C MP, VIJI, LIPA, CMADM ####[facility] [address] [place] [address]Dr. Tadeo Smyth AAKASH 23 ng/mL Normal 9-82 [facility] Comment on above: Performed By: #### C MP, VIJI, LIPA, CMADM ####[facility] [address] [place] [address]Dr. Tadeo Smyth CBC AUTO DIFFon 08-08-2022 BASO # 0.0 103/ul Normal 0.0-0.1 [facility] Comment on above: Performed By: #### C BC ####[facility] [address] [place] [address]Dr. Tadeo Smyth Basophils/100 WBC (Bld) 0.4 % Normal 0.2-2.0 [facility] Comment on above: Performed By: #### C BC ####[facility] [address] [place] [address]Dr. Tadeo Smyth EO # 0.1 103/ul Normal 0.0-0.7 [facility] Comment on above: Performed By: #### C BC ####[facility] [address] [place], [place] [address]Dr. Margotnicole Smyth Eosinophils/100 WBC (Bld) 1.5 % Normal 0.9-7.0 [facility] Comment on above: Performed By: #### C BC ####[facility] X[address] [place], [place] [address]Dr. Tadeo Smyth Erythrocyte distribution width (RBC) [Ratio] 13.5 % Normal 11.0-15.0 [facility] Comment on above: Performed By: #### C BC ####[facility] [address]resci[address] [place], [place] [address]Dr. Tadeo Smyth Hematocrit (Bld) [Volume fraction] 37.0 % Normal 36.0-48.0 [facility] Comment on above: Performed By: #### C BC ####[facility] [address] [place], [place] [address]Dr. Margotnicole Smyth Hemoglobin (Bld) [Mass/Vol] 12.0 g/dL Normal 12.0-16.0 [facility] Comment on above: Performed By: #### C BC ####[facility] [address] [place], [place] [address]Dr. Tadeo Smyth IG # 0.02 10e3/ul Normal 0.00-0.03 [facility] Comment on above: Performed By: #### C BC ####[facility] Ol[address]kvqka[address] [place], [place] [address]Dr. Tadeo Smyth IG % 0.3 % Normal 0.0-0.5 [facility] Comment on above: Performed By: #### C BC ####[facility] Xovifmmblt[address] [place], [place] [address]DrNeo Smyth LYMPH # 2.0 103/ul Normal 1.2-3.8 [facility] Comment on above: Performed By: #### C BC ####[facility] [address]okm[address] [place], [place] [address]Dr. Tadeo Smyth Lymphocytes/100 WBC (Bld) 27.9 % Normal 20.5-60.0 [facility] Comment on above: Performed By: #### C BC ####[facility] [address] [place] [address]DrNeo Smyth MANUAL DIFF REQ NO Normal [facility] Comment on above: Performed By: #### C BC ####[facility] [address]ty[address] [place] [address]Dr. Tadeo Smyth MCH (RBC) [Entitic mass] 28.9 pg Normal 26.7-34.0 [facility] Comment on above: Performed By: #### C BC ####[facility] Kqefesfanw[address] [place], [place] [address]DrNeo Smyth MCHC (RBC) [Mass/Vol] 32.4 g/dL Normal 29.9-35.2 [facility] Comment on above: Performed By: #### C BC ####[facility] Wgbulfhhrn[address] [place], [place] [address]DrNeo Smyth MCV (RBC) [Entitic vol] 89.2 fL Normal 81.0-99.0 [facility] Comment on above: Performed By: #### C BC ####[facility] Ckemudbvwy[address] [place], [place] [address]DrNeo Smyth MONO # 0.5 103/ul Normal 0.3-0.8 [facility] Comment on above: Performed By: #### C BC ####[facility] Paockjoqac6[address] [place], [place] [address]DrNeo Smyth Monocytes/100 WBC (Bld) 6.7 % Normal 1.7-12.0 [facility] Comment on above: Performed By: #### C BC ####[facility] Embxbkrlfu8[address] [place], [place] [address]DrNeo Smyth NEUT # 4.5 103/ul Normal 1.4-6.5 [facility] Comment on above: Performed By: #### C BC ####[facility] Gcvxtokbvk[address] [place], [place] [address]DrNeo Smyth Neutrophils/100 WBC (Bld) 63.2 % Normal 43.0-75.0 [facility] Comment on above: Performed By: #### C BC ####[facility] Vdzhexifqd[address] [place], [place] [address]Dr. Tadeo Smyth Platelet mean volume (Bld) [Entitic vol] 9.0 fL Critically low 9.5-13.5 [facility] Comment on above: Performed By: #### C BC ####[facility] Yfcemkbazs[address] [place], [place] [address]Dr. Tadeo Smyth PLT 382 103/ul Normal 150-450 [facility] Comment on above: Performed By: #### C BC ####[facility] Wfxlgrnmuo66[address] [place], [place] [address]Dr. Tadeo Smyth RBC 4.15 106/ul Critically low 4.20-5.40 [facility] Comment on above: Performed By: #### C BC ####[facility] Wvuybnzrqd6[address] [place], [place] [address]Dr. Tadeo Haja WBC 7.1 103/ul Normal 4.0-11.0 [facility] Comment on above: Performed By: #### C BC ####[facility] Lbezknoifn[address] [place], [place] [address]Dr. Tadeo Smyth CT ABD/PELV W CONon 08-08-[address] ABD/PELV W CON Normal [facility] ER URINE PROFILEon 2 Bilirubin Ql (U) Negative Normal NEGATIVE [facility] Comment on above: Performed By: #### KAROL MERCHANT ####[facility] X[address]qkfudup[address] [place], [place] [address]Dr. Margotnicole Smyth Clarity (U) CLEAR Normal CLEAR [facility] Comment on above: Performed By: #### KAROL MERCHANT ####[facility] Qwknzsbubi[address] [place], [place] [address]Dr. Tadeo Smyth Color (U) YELLOW Normal YELLOW [facility] Comment on above: Performed By: #### KAROL MERCHANT ####[facility] [address] [place], [place] [id number]. Tadeo ENG A micrscopic examina tion will be performed if indicated. Normal [facility] Comment on above: Performed By: #### KAROL MERCHANT ####[facility] Hbjrdyrjxp4[address] [place], [place] [address]Dr. Tadeo Smyth Glucose Ql (U) Negative Normal NEGATIVE [facility] Comment on above: Performed By: #### KAROL MERCHANT ####[facility] Koffgnnrar9[address] [place], [place] [address]Dr. Tadeo Smyth Hemoglobin Ql (U) TRACE-LYSED Abnormal NEGATIVE [facility] Comment on above: Performed By: #### KAROL MERCHANT ####[facility] Ffqkfgpoeu8[address] [place], [place] [address]Dr. Tadeo Smyth Ketones Ql (U) TRACE Abnormal NEGATIVE [facility] Comment on above: Performed By: #### KAROL MERCHANT ####[facility] Cvaesgwnck[address] [place], [place] [address]Dr. Tadeo Smyth LEUKOCYTES Negative Normal NEGATIVE [facility] Comment on above: Performed By: #### KAROL MERCHANT ####[facility] [address]yjoftlk[address] [place], [place] [address]Dr. Tadeo Smyth Nitrite Ql (U) Negative Normal NEGATIVE [facility] Comment on above: Performed By: #### KAROL MERCHANT ####[facility] [address]etwba[address] [place], [place] [address]Dr. Tadeo Smyth pH (U) 6.0 [pH] Normal 5-9 [facility] Comment on above: Performed By: #### SANDRO MERCHANTRO ####[facility] [address]mtvs[address] [place], [place] [address]Dr. Tadeo Smyth SPEC GRAVITY >=1.030 Abnormal 1.005-<=1.0 25 [facility] Comment on above: Performed By: #### KAROL MERCHANT ####[facility] G[address]xssspux[address] [place], [place] [address]Dr. Tadeo Smyth UA PROTEIN TRACE Normal NEGATIVE/ TRACE [facility] Comment on above: Performed By: #### RANDI MERCHANTICRO ####[facility] [address] [place] [address]Dr. Tadeo Smyth UR MICRO IND INDICATED Normal [facility] Comment on above: Performed By: #### RANDI MERCHANTICRO ####[facility] [address] [place] [address]Dr. Tadeo Smyth Urobilinogen Qn (U) 0.2 {Benito'U}/dL Normal 0.2 - 1. 0 [facility] Comment on above: Performed By: #### SANDRO MERCHANTRO ####[facility] [address] [place] [address]Dr. Tadeo Smyth LACTATE/LACTIC ACIDon 2021 Lactate [Moles/Vol] 1.3 mmol/L Normal 0.4-1.9 [facility] Comment on above: Performed By: #### L ACT ####[facility] T[address]znspvs[address] [place], [place] [address]Dr. Tadeo Smyth LIPASEon 08-08-2022 Lipase [Catalytic activity/Vol] 120.0 U/L Normal 73.0-393.0 [facility] Comment on above: Performed By: #### C MP, VIJI, LIPA, CMADM ####[facility] [address] [place] [address]Dr. Tadeo Smyth PROF 14(COMP METB)on 022 Albumin [Mass/Vol] 3.8 g/dL Normal 3.4-5.0 [facility] Comment on above: Performed By: #### C MP, VIJI, LIPA, CMADM ####[facility] [address] [place] [address]Dr. Tadeo Smyth Albumin/Globulin [Mass ratio] 1.1 {ratio} Normal [facility] Comment on above: Performed By: #### C MP, VIJI, LIPA, CMADM ####[facility] [address]wrx[address] [place] [address]Dr. Tadeo Smyth ALP [Catalytic activity/Vol] 145 U/L Critically high 46-116 [facility] Comment on above: Performed By: #### C MP, VIJI, LIPA, CMADM ####[facility] [address] [place] [address]Dr. Tadeo Smyth ALT [Catalytic activity/Vol] 30 U/L Normal 14-59 [facility] Comment on above: Performed By: #### C MP, VIJI, LIPA, CMADM ####[facility] [address]ior[address] [place] [address]Dr. Tadeo Smyth Anion gap [Moles/Vol] 11.5 mmol/L Normal Th e [facility] Comment on above: Performed By: #### C MP, VIJI, LIPA, CMADM ####[facility] U[address] [place], [place] [address]Dr. Tadeo Smyth AST [Catalytic activity/Vol] 17 U/L Normal 15-37 [facility] Comment on above: Performed By: #### C MP, VIJI, LIPA, CMADM ####[facility] Z[address] [place] [address]Dr. Tadeo Smyth Bilirubin [Mass/Vol] 0.1 mg/dL Critically low 0.2-1.0 [facility] Comment on above: Performed By: #### C MP, VIJI, LIPA, CMADM ####[facility] [address] [place] [address]Dr. Tadeo Smyth Calcium [Mass/Vol] 8.9 mg/dL Normal 8.5-10.1 [facility] Comment on above: Performed By: #### C MP, VIJI, LIPA, CMADM ####[facility] [address] [place] [address]Dr. Tadeo Smyth Chloride [Moles/Vol] 104 mmol/L Normal 98-107 [facility] Comment on above: Performed By: #### C MP, VIJI, LIPA, CMADM ####[facility] [address] [place] [address]Dr. Tadeo Smyth CO2 [Moles/Vol] 27.2 mmol/L Normal 21.0-32.0 [facility] Comment on above: Performed By: #### C MP, VIJI, LIPA, CMADM ####[facility] [address] [place] [address]Dr. Tadeo Smyth Creatinine [Mass/Vol] 0.90 mg/dL Normal 0.55-1.02 [facility] Comment on above: Performed By: #### C MP, VIJI, LIPA, CMADM ####[facility] [address] [place] [address]Dr. Tadeo Smyth EGFR-AF GREEK >60 Normal >=60 [facility] Comment on above: Performed By: #### C MP, VIJI, LIPA, CMADM ####[facility] [address]scsme[address] [place], [place] [address]Dr. Tadeo Smyth EGFR-NON AF GREEK >60 Normal >=60 [facility] Comment on above: Performed By: #### C MP, VIJI, LIPA, CMADM ####[facility] Wh[address]xzksvk[address] [place], [place] [address]Dr. Tadeo Smyth Globulin (S) [Mass/Vol] 3.5 g/dL Normal [facility] Comment on above: Performed By: #### C MP, VIJI, LIPA, CMADM ####[facility] Jwcnggwois[address] [place], [place] [address]Dr. Tadeo Smyth Glucose [Mass/Vol] 98 mg/dL Normal 74-106 [facility] Comment on above: Performed By: #### C MP, VIJI, LIPA, CMADM ####[facility] Pedwlzjkaj[address] [place], [place] [address]Dr. Tadeo Smyth Potassium [Moles/Vol] 3.7 mmol/L Normal 3.5-5.1 [facility] Comment on above: Performed By: #### C MP, VIJI, LIPA, CMADM ####[facility] [address]fww[address] [place], [place] [address]Dr. Tadeo Smyth Protein [Mass/Vol] 7.3 g/dL Normal 6.4-8.2 [facility] Comment on above: Performed By: #### C MP, VIJI, LIPA, CMADM ####[facility] [address] [place] [address]Dr. Tadeo Smyth Sodium [Moles/Vol] 139 mmol/L Normal 136-145 [facility] Comment on above: Performed By: #### C JOSE, VIJI, LIPA, CMADM ####[facility] [address]ex[address] [place] [address]Dr. Tadeo Smyth Urea nitrogen [Mass/Vol] 25.0 mg/dL Critically high 7.0-18.0 [facility] Comment on above: Performed By: #### C MP, VIJI, LIPA, CMADM ####[facility] [address] [place] [address]Dr. Tadeo Smyth Urea nitrogen/Creatinine [Mass ratio] 27.8 mg/mg Normal [facility] Comment on above: Performed By: #### C JOSE, VIJI, LIPA, CMADM ####[facility] [address] [place] [address]Dr. Tadeo Smyth URINE MICROSCOPIC ONLYon BACTERIA NONE SEEN Normal NONE SEEN [facility] Comment on above: Performed By: #### SANDRO MERCHANTRO ####[facility] [address]zbwn[address]wkn[address] [place], [place] [address]Dr. Tadeo Smyth Bacteria identified Cx Nom (U) NOT INDICATED Normal [facility] Comment on above: Performed By: #### SANDRO MERCHANTRO ####[facility] [address] [place] [address]Dr. Tadeo Smyth CAST NONE SEEN Normal NONE SEEN [facility] Comment on above: Performed By: #### Matthew FRANCISCO UMICRO ####[facility] [address] [place] [address]Dr. Tadeo Smyth Crystals LM Nom (Urine sed) NONE SEEN Normal NONE SEEN [facility] Comment on above: Performed By: #### Matthew FRANCISCO UMICRO ####[facility] [address]ax[address] [place] [address]Dr. Tadeo Smyth Epithelial cells LM Ql (Urine sed) FEW Abnormal NONE SEEN /RARE [facility] Comment on above: Performed By: #### KAROL MERCHANT ####[facility] [address] [place], [place] [address]Lu. Tadeo Smyth MUCOUS NONE SEEN Normal NONE SEEN [facility] Comment on above: Performed By: #### KAROL MERCHANT ####[facility] [address] [place], [place] [address]Qx. Tadeo Smyth RBC 2-5 Abnormal 0-2 [facility] Comment on above: Performed By: #### KAROL MERCHANT ####[facility] [address] [place], [place] [address]Oz. Tadeo Smyht WBC NONE SEEN Normal NONE SEEN [facility] Comment on above: Performed By: #### KAROL MERCHANT ####[facility] [address]xp[address]rs[address] [place], [place] [address]It. Tadeo Smyth Gastroenterology Office/Clin ic Noteon 07-24-2022 Gastroenterology Office/Clinic Note Chief Complaint c/o severe stomach pain, nausea and vomiting HPI Staff Patient is a 52 year old femalewho presents today for a 3 month follow up. Labs and US completed C/o severe stomach pain, nausea and vomiting History of Present Illness Constantino Rios is a 52-year-old white female with a history of significant gastroparesis and gastric bezoar. 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 She is reporting that her symptoms of nausea, vomiting, and epigastric discomfort is worsening recently. Her last EGD was done in 01/2022 and showed small gastric bezoar. She reports bloating and discomfort postprandially. She denies fever, chills, melena, hematochezia, or rectal bleeding. Review of Systems PHQ Score Initial Depression Screen Score: 2 Constitutional: no fever, no chills, no sweats, no weakness Skin: no Jaundice, no rash, no lesions, no petechiae ENMT: no ear pain, no sore throat, no congestion, no hoarseness Respiratory: no shortness of breath, no cough, no orthopnea, no wheezing Cardiovascular: no chest pain, no palpitations, no edema Gastrointestinal: No diarrhea, no constipation, no GI bleeding, no abdominal pain, no dysphagia, no bloating, no heartburn. Positive for nausea and vomiting. Genitourinary: no dysuria, no hematuria, no discharge, no pain Musculoskeletal: no back pain, no trauma Neurologic: no numbness, no sleeping problems Additional ROS info: Except as noted in the above Review of Systems and in the History of Present Illness all other systems have been reviewed and are negative or noncontributory. Physical Exam Vitals & Measurements HR: 62(Peripheral) RR: 16 BP: 136/83 SpO2: 98% HT: 67 in HT: 170 cm WT: 86.6 kg WT: 190.52 lb BMI: 29.97 Constitutional: Appearance: well developed Skin: Inspection: no rashes, ulcers, icterus, or telangiectasias. Eyes: Conjunctivae/lids: normal conjunctivae and lids. ENMT: Hearing: within normal limits. Lips/Teeth/Gums: normal oral mucosa Neck: Neck: normal motion, central trachea Respiratory: Percussion: thorax normoresonant. Auscultation: normal breath sounds; no rubs, wheezes, rale or ronchi. Cardiovascular: Auscultation: normal rhythm, S1 and S2; no rubs, murmurs or gallop. Peripheral: no edema Gastrointestinal/Abdomen: Abdomen: normal consistency and bowel sounds; no epigastric discomfort. Liver/Spleen: normal size and consistency, not palpable. Rectal: deferred Musculoskeletal: Gait/station: normal gait Assessment/Plan 1. Nausea and vomiting (R11.2: Nausea with vomiting, unspecified) This is likely related to gastroparesis and gastric bezoar. I advised the patient to follow a clear liquid diet for 1 to 2 days. We will start her on metoclopramide 10 mg with meals for 1 month. She was advised to monitor for any neurologic side effects including tardive dyskinesia. The patient was educated about those potential complications and she agreed. If symptoms persist despite the above treatment, then I will proceed with an EGD. 2. Gastroparesis (K31.84: Gastroparesis) This is worsening. We will restart Reglan while monitoring for any neurologic side effects. We will continue with Reglan only for 1 month. 3. Pearce esophagus (K22.70: Pearce's esophagus without dysplasia) This is a short segment with no dysplasia. Her next EGD is due in 2022. 4. Epigastric pain (R10.13: Epigastric pain) 5. Gastric bezoar (T18.2XXA: Foreign body in stomach, initial encounter) ATTESTATION: Documentation services were performed after patient or guardian consented to allow Richard Nunez to record this visit. JOSE FRANCISCO community service specialist and provider reviewed before signing. JOSE FRANCISCO: Darlene Sieg. Follow-up No qualifying data available Problem List/Past Medical History Ongoing Acid reflux Arthritis Pearce esophagus BMI 26.0-26.9,adult Diarrhea Epigastric pain Foreign body in stomach, sequela Gallstone Gastric bezoar Gastroparesis Heartburn Hernia, hiatal High blood pressure Hx of urinary tract infection Irregular bowel habits Kidney stones Migraines Nausea and vomiting Other post-traumatic urethral stricture, female Proteinuria Seizures Urinary urgency Historical Mitral valve prolapse Procedure/Surgical History Esophagogastroduodenoscopy (01/11/2022), Esophagogastroduodenoscopy (05/13/2021), Esophagogastroduodenoscopy (09/30/2020), Colonoscopy (03/13/2020), Esophagogastroduodenoscopy (01/30/2020), Colonoscopy (05/17/2019), Esophagogastroduodenoscopy (05/17/2019), Hernia surgical mesh (03/02/2019), Cholecystectomy, Hernia repair, Hysterectomy. Medications albuterol HFA 90 mcg/inh MDI, 2 puff(s), Inhalation, q4hr, PRN APAP/butalbital/caffeine 325 mg-50 mg-40 mg Tab, 1 tab(s), Oral, q12hr, PRN Bentyl 10 mg Cap, 20 mg= 2 cap(s), Oral, QID omeprazole 40 mg Cap-DR, 40 mg= 1 cap(s), Oral, Daily, 1 refills Reglan 10 mg Tab, 10 mg= 1 tab(s), Oral, TID Reglan 10 mg Tab, 10 mg= (more content not included)... [facility] Comment on above: Result Comment: Elec tronically Signed By: Agata Nunes\.br\Date and Time Signed: 07/22/22 16:25 EST\.br\Electronically Co-Signed By: Anai REAGAN MD\.br\Date and Time Co-Signed: 07/24/22 15:06 EST AMYLASEon 07-21-2022 Amylase [Catalytic activity/Vol] 49 U/L Normal 25-115 [facility] Comment on above: Performed By: #### L ISABEL, VIJI, CMP ####[facility] [address] [place] [address]Dr. Tadeo Smyth CBC AUTO DIFFon 07-21-2022 BASO # 0.0 103/ul Normal 0.0-0.1 [facility] Comment on above: Performed By: #### C BC ####[facility] Daruobzpro[address] [place], [place] [address]Dr. Tadeo Smyth Basophils/100 WBC (Bld) 0.6 % Normal 0.2-2.0 [facility] Comment on above: Performed By: #### C BC ####[facility] [address]ufy[address] [place], [place] [address]Dr. Tadeo Smyth EO # 0.2 103/ul Normal 0.0-0.7 [facility] Comment on above: Performed By: #### C BC ####[facility] Obivz[address]iuue[address] [place], [place] [address]Dr. Tadeo Smyth Eosinophils/100 WBC (Bld) 3.1 % Normal 0.9-7.0 [facility] Comment on above: Performed By: #### C BC ####[facility] T[address]mntkrq[address] [place], [place] [address]Dr. Tadeo Smyth Erythrocyte distribution width (RBC) [Ratio] 13.2 % Normal 11.0-15.0 [facility] Comment on above: Performed By: #### C BC ####[facility] Iz[address]wnwrz[address] [place], [place] [address]Dr. Tadeo Smyth Hematocrit (Bld) [Volume fraction] 35.7 % Critically low 36.0-48.0 [facility] Comment on above: Performed By: #### C BC ####[facility] [address] [place], [place] [address]Dr. Tadeo Smyth Hemoglobin (Bld) [Mass/Vol] 11.6 g/dL Critically low 12.0-16.0 [facility] Comment on above: Performed By: #### C BC ####[facility] [address]fczqiqqxc8[address] [place] [id number]. Tadeo Smyth IG # 0.01 10e3/ul Normal 0.00-0.03 [facility] Comment on above: Performed By: #### C BC ####[facility] Zfwohuqobk23[address] [place] [address]Dr. Tadeo Smyth IG % 0.2 % Normal 0.0-0.5 [facility] Comment on above: Performed By: #### C BC ####[facility] Lnazooztlx8[address] [place] [address]Dr. Tadeo Smyth LYMPH # 1.9 103/ul Normal 1.2-3.8 [facility] Comment on above: Performed By: #### C BC ####[facility] Mezxeqgels96[address] [place] [address]Dr. Margotnicole Smyth Lymphocytes/100 WBC (Bld) 34.8 % Normal 20.5-60.0 [facility] Comment on above: Performed By: #### C BC ####[facility] Bkvtfcidqi10[address] [place] [address]Dr. Tadeo Smyth MANUAL DIFF REQ NO Normal [facility] Comment on above: Performed By: #### C BC ####[facility] Ulzbdvcbez3658 [place] [address]Dr. Tadeo Smyth MCH (RBC) [Entitic mass] 29.1 pg Normal 26.7-34.0 [facility] Comment on above: Performed By: #### C BC ####[facility] Evuliaqmkp03[address] [place] [address]Dr. Tadeo Smyth MCHC (RBC) [Mass/Vol] 32.5 g/dL Normal 29.9-35.2 [facility] Comment on above: Performed By: #### C BC ####[facility] Brmspcgnql4734 [place] [address]Dr. Tadeo Smyth MCV (RBC) [Entitic vol] 89.7 fL Normal 81.0-99.0 [facility] Comment on above: Performed By: #### C BC ####[facility] Zisdlengiq7[address] [place] [address]Dr. Tadeo Smyth MONO # 0.3 103/ul Normal 0.3-0.8 [facility] Comment on above: Performed By: #### C BC ####[facility] Pgysjmekxf1723 [place] [address]Dr. Tadeo Smyth Monocytes/100 WBC (Bld) 6.1 % Normal 1.7-12.0 [facility] Comment on above: Performed By: #### C BC ####[facility] Wnitnbnlsd[address] [place], [place] [address]Dr. Tadeo Smyth NEUT # 3.0 103/ul Normal 1.4-6.5 [facility] Comment on above: Performed By: #### C BC ####[facility] Vvigkeggvv[address] [place], [place] [address]Dr. Tadeo Smyth Neutrophils/100 WBC (Bld) 55.2 % Normal 43.0-75.0 [facility] Comment on above: Performed By: #### C BC ####[facility] Scdrvihsqx8[address] [place], [place] [address]Dr. Tadeo Smyth Platelet mean volume (Bld) [Entitic vol] 9.0 fL Critically low 9.5-13.5 [facility] Comment on above: Performed By: #### C BC ####[facility] Ctwpdjqnnh5[address] [place], [place] [address]Dr. Tadeo Smyth PLT 358 103/ul Normal 150-450 [facility] Comment on above: Performed By: #### C BC ####[facility] Xmpbdbzhno01[address] [place], [place] [address]Dr. Tadeo Smyth RBC 3.98 106/ul Critically low 4.20-5.40 [facility] Comment on above: Performed By: #### C BC ####[facility] Ssegsjdvbg[address] [place], [place] [id number]. Tadeo Smyth WBC 5.4 103/ul Normal 4.0-11.0 [facility] Comment on above: Performed By: #### C BC ####[facility] Uimqbwdwxd230[address] [place], [place] [address]Dr. Tadeo Smyth LIPASEon 11-16-2022 Lipase [Catalytic activity/Vol] 54.0 U/L Critically low 73.0-393.0 [facility] Comment on above: Performed By: #### L VIJI HALL, CMP ####[facility] Hkccovbmme4226 [place] [address]Dr. Tadeo Smyth PROF 14(COMP METB)on 022 Albumin [Mass/Vol] 3.5 g/dL Normal 3.4-5.0 [facility] Comment on above: Performed By: #### L VIJI HALL, CMP ####[facility] Gavchzqusg5352 [place] [address]Dr. Tadeo Smyth Albumin/Globulin [Mass ratio] 0.9 {ratio} Normal [facility] Comment on above: Performed By: #### L VIJI HALL, CMP ####[facility] Diwyeklxek2367 [place] [address]Dr. Tadeo Smyth ALP [Catalytic activity/Vol] 127 U/L Critically high 46-116 [facility] Comment on above: Performed By: #### L VIJI HALL, CMP ####[facility] Eindzpnvpi6300 [place] [address]Dr. Tadeo Symth ALT [Catalytic activity/Vol] 16 U/L Normal 14-59 [facility] Comment on above: Performed By: #### L VIJI HALL, CMP ####[facility] Iwnqwbfvce9220 [place] [address]Dr. Tadeo mSyth Anion gap [Moles/Vol] 10.6 mmol/L Normal [facility] Comment on above: Performed By: #### L VIJI HALL, CMP ####[facility] Tqarsmddbs2592 [place] [id number]. Tadeo Smyth AST [Catalytic activity/Vol] 16 U/L Normal 15-37 [facility] Comment on above: Performed By: #### L VIJI HALL, CMP ####[facility] Cwqgpuvslb5784 [place] [address]Dr. Tadeo Smyth Bilirubin [Mass/Vol] 0.3 mg/dL Normal 0.2-1.0 [facility] Comment on above: Performed By: #### L VIJI HALL, CMP ####[facility] Jxqexyjjwb3801 [place] [address]Dr. Tadeo Smyth Calcium [Mass/Vol] 9.1 mg/dL Normal 8.5-10.1 [facility] Comment on above: Performed By: #### L VIJI HALL, CMP ####[facility] Hjiyiquhqr[address] [place], [place] [address]Dr. Tadeo Smyth Chloride [Moles/Vol] 104 mmol/L Normal 98-107 [facility] Comment on above: Performed By: #### L VIJI HALL, CMP ####[facility] Xfrovhdgxy2[address] [place], [place] [address]Dr. Tadeo Smyth CO2 [Moles/Vol] 28.0 mmol/L Normal 21.0-32.0 [facility] Comment on above: Performed By: #### L VIJI HALL, CMP ####[facility] Uavyutpjpo8[address] [place], [place] [address]Dr. Tadeo Smyth Creatinine [Mass/Vol] 0.96 mg/dL Normal 0.55-1.02 [facility] Comment on above: Performed By: #### L VIJI HALL, CMP ####[facility] Ejdolzxnms[address] [place], [place] [address]Dr. Tadeo Smyth EGFR-AF GREEK >60 Normal >=60 [facility] Comment on above: Performed By: #### L VIJI HALL, CMP ####[facility] Rtsitjbpfj37[address] [place], [place] [address]Dr. Tadeo Smyth EGFR-NON AF GREEK >60 Normal >=60 [facility] Comment on above: Performed By: #### L VIJI HALL, CMP ####[facility] Euewdgbrka57[address] [place], [place] [address]Dr. Tadeo Smyth Globulin (S) [Mass/Vol] 3.8 g/dL Normal [facility] Comment on above: Performed By: #### L IVJI HALL, CMP ####[facility] Dbgfxijalo8235[address] [place], [place] [address]Dr. Tadeo Smyth Glucose [Mass/Vol] 93 mg/dL Normal 74-106 [facility] Comment on above: Performed By: #### L VIJI HALL, CMP ####[facility] Tphftlywne5495 [place] [address]Dr. Tadeo Smyth Potassium [Moles/Vol] 3.6 mmol/L Normal 3.5-5.1 [facility] Comment on above: Performed By: #### L VIJI HALL, CMP ####[facility] Abilgltybj4832[address] [place], [place] [address]Dr. Tadeo Smyth Protein [Mass/Vol] 7.3 g/dL Normal 6.4-8.2 [facility] Comment on above: Performed By: #### L VIJI HALL, CMP ####[facility] Zmhuyczdtf20[address] [place], [place] [address]Dr. Tadeo Smyth Sodium [Moles/Vol] 139 mmol/L Normal 136-145 [facility] Comment on above: Performed By: #### L VIJI HALL, CMP ####[facility] Sthgzkdvwr[address] [place], [place] [address]Dr. Tadeo Smyth Urea nitrogen [Mass/Vol] 16.0 mg/dL Normal 7.0-18.0 [facility] Comment on above: Performed By: #### L VIJI HALL, CMP ####[facility] Mogoobfbaz5[address] [place], [place] [address]Dr. Tadeo Smyth Urea nitrogen/Creatinine [Mass ratio] 16.7 mg/mg Normal [facility] Comment on above: Performed By: #### L VIJI HALL, CMP ####[facility] Thwyndsgus[address] [place], [place] [address]Dr. Tadeo Smyth XR ABD FLAT UP_PA Kasey 07-21 XR ABD FLAT UP_PA CH Normal [facility] CULTURE URINEon 07-10-2022 CULTURE URINE Normal [facility] Comment on above: Performed By: #### U RCX ####[facility] Uhzihubsym99[address] [place], [place] [address]Dr. Tadeo Haja INSULINon 07-09-2022 Insulin 15.9 uIU/mL Normal 2.6-24.9 [facility] Comment on above: Performed By: #### I NSULIN ####[facility] Zbvncasast2917[address] [place], [place] [address]Dr. Tadeo Smyth CBC AUTO DIFFon 07-08-2022 BASO # 0.0 103/ul Normal 0.0-0.1 [facility] Comment on above: Performed By: #### C BC ####[facility] Oruoyhqnwl13[address] [place], [place] [address]Dr. Tadeo Smyth Basophils/100 WBC (Bld) 0.6 % Normal 0.2-2.0 [facility] Comment on above: Performed By: #### C BC ####[facility] Eritzyymjf8[address] [place], [place] [address]Dr. Tadeo Smyth EO # 0.2 103/ul Normal 0.0-0.7 [facility] Comment on above: Performed By: #### C BC ####[facility] Etyaqnjhnj7192[address] [place], [place] [address]Dr. Tadeo Smyth Eosinophils/100 WBC (Bld) 3.4 % Normal 0.9-7.0 [facility] Comment on above: Performed By: #### C BC ####[facility] Mykfvgircy[address] [place], [place] [address]Dr. Tadeo Smyth Erythrocyte distribution width (RBC) [Ratio] 13.1 % Normal 11.0-15.0 [facility] Comment on above: Performed By: #### C BC ####[facility] Ikieonytiq183[address] [place], [place] [address]Dr. Tadeo Smyth Hematocrit (Bld) [Volume fraction] 42.4 % Normal 36.0-48.0 [facility] Comment on above: Performed By: #### C BC ####[facility] Inmoykbnda27[address] [place], [place] [address]Dr. Tadeo Smyth Hemoglobin (Bld) [Mass/Vol] 13.7 g/dL Normal 12.0-16.0 [facility] Comment on above: Performed By: #### C BC ####[facility] Pixmvnvlof32[address] [place], [place] [address]Dr. Tadeo Smyth IG # 0.01 10e3/ul Normal 0.00-0.03 [facility] Comment on above: Performed By: #### C BC ####[facility] Vhbyjcbnmf40[address] [place] [address]Dr. Tadeo Smyth IG % 0.2 % Normal 0.0-0.5 [facility] Comment on above: Performed By: #### C BC ####[facility] Jqtzgmxrth[address] [place], [place] [address]DrNeo Tadeo Smyth LYMPH # 2.1 103/ul Normal 1.2-3.8 [facility] Comment on above: Performed By: #### C BC ####[facility] Tmotfdvabk4512[address] [place], [place] [address]DrNeo Tadeo Haja Lymphocytes/100 WBC (Bld) 41.2 % Normal 20.5-60.0 [facility] Comment on above: Performed By: #### C BC ####[facility] Zkohlyvdyt[address] [place], [place] [address]Dr. Tadeo Haja MANUAL DIFF REQ NO Normal [facility] Comment on above: Performed By: #### C BC ####[facility] Uvwlhxnkwd4[address] [place], [place] [address]Dr. Tadeo Smyth MCH (RBC) [Entitic mass] 28.8 pg Normal 26.7-34.0 [facility] Comment on above: Performed By: #### C BC ####[facility] Anhmtoiryb260[address] [place], [place] [address]Dr. Tadeo Haja MCHC (RBC) [Mass/Vol] 32.3 g/dL Normal 29.9-35.2 [facility] Comment on above: Performed By: #### C BC ####[facility] Oulxplgkhk[address] [place], [place] [address]DrNeo Tadeo Haja MCV (RBC) [Entitic vol] 89.3 fL Normal 81.0-99.0 [facility] Comment on above: Performed By: #### C BC ####[facility] Rsparwqbqz[address] [place], [place] [address]DrNeo Tadeo Haja MONO # 0.4 103/ul Normal 0.3-0.8 [facility] Comment on above: Performed By: #### C BC ####[facility] Zgpsnszcla3936 [place] [address]Dr. Tadeo Smyth Monocytes/100 WBC (Bld) 8.1 % Normal 1.7-12.0 [facility] Comment on above: Performed By: #### C BC ####[facility] Wpmkvorwud6085 [place] [address]Dr. Tadeo Smyth NEUT # 2.4 103/ul Normal 1.4-6.5 [facility] Comment on above: Performed By: #### C BC ####[facility] Qxujvnldbi6245 [place] [address]Dr. Tadeo Smyth Neutrophils/100 WBC (Bld) 46.5 % Normal 43.0-75.0 [facility] Comment on above: Performed By: #### C BC ####[facility] Ykfzvtmcmh8391 [place] [address]Dr. Tadeo Smyth Platelet mean volume (Bld) [Entitic vol] 9.3 fL Critically low 9.5-13.5 [facility] Comment on above: Performed By: #### C BC ####[facility] Lsrsqfcrzr6410 [place] [id number]. Tadeo Smyth PLT 443 103/ul Normal 150-450 [facility] Comment on above: Performed By: #### C BC ####[facility] Zhparpufhh0696 [place] [address]Dr. Tadeo Smyth RBC 4.75 106/ul Normal 4.20-5.40 [facility] Comment on above: Performed By: #### C BC ####[facility] Rwliphgasu6705 [place] [id number]. Tadeo Smyth WBC 5.1 103/ul Normal 4.0-11.0 [facility] Comment on above: Performed By: #### C BC ####[facility] Hjsumzznvv7892 [place] [address]Dr. Tadeo Smyth FREE THYROXINE INDEX T7on FTI 2.91 Normal 1.30-4.50 [facility] Comment on above: Performed By: #### T 7, LIPID, TSH, CMP ####[facility] Rmqoaavsjk0374 [place] [address]Dr. Tadeo Smyth T3U 31.0 % Normal 30.0-39.0 [facility] Comment on above: Performed By: #### T 7, LIPID, TSH, CMP ####[facility] Ccbtvzhual4886 [place] [address]Dr. Tadeo Smyth T4 [Mass/Vol] 9.40 ug/dL Normal 4.80-13.90 [facility] Comment on above: Performed By: #### T 7, LIPID, TSH, CMP ####[facility] Dfpgfuzmat40[address] [place], [place] [address]Dr. Tadeo Smyth GLYCOHEMOGLOBIN A1Con 2021 ADA RECOMMENDATION SEE BELOW Normal [facility] Comment on above: Result Comment: ADA RECOMMENDED LIMIT 4.0 - 6.0 ADA THERAPEUTIC TARGET < 7.0 ACTION SUGGESTED > 7.0 Performed By: #### A 1C ####[facility] Xximwwitgw[address] [place], [place] [address]Dr. Tadeo Smyth Glucose [Mass/Vol] 120 mg/dL Normal [facility] Comment on above: Performed By: #### A 1C ####[facility] Frrdgdhiow029[address] [place], [place] [address]Dr. Tadeo Smyth HbA1c (Bld) [Mass fraction] 5.8 % Normal 4.5-6.2 [facility] Comment on above: Performed By: #### A 1C ####[facility] Ficjzubkla42[address] [place], [place] [address]Dr. Tadeo Smyth IRONon 07-08-2022 Iron [Mass/Vol] 59.0 ug/dL Normal 50.0-170.0 [facility] Comment on above: Performed By: #### I KEEGAN ####[facility] Oxmgzkfqgs9265[address] [place], [place] [address]Dr. Tadeo Smyth LIPID PROFILEon 07-08-2022 CHOL-HDL RATIO NORM SEE BELOW Normal [facility] Comment on above: Result Comment: 3.3 - 4.4 LOW RISK 4.4 - 7.1 AVERAGE RISK 7.1 - 11.0 MODERATE RISK >11.0 HIGH RISK Performed By: #### T 7, LIPID, TSH, CMP ####[facility] Sapemzacyi6775 [place] [id number]. Tadeo Smyth Cholesterol [Mass/Vol] 227 mg/dL Critically high <=200 [facility] Comment on above: Performed By: #### T 7, LIPID, TSH, CMP ####[facility] Pqyoikkraa3674 [place] [id number]. Margotlan Smyth Cholesterol in HDL [Mass/Vol] 67 mg/dL Critically high 40-60 [facility] Comment on above: Performed By: #### T 7, LIPID, TSH, CMP ####[facility] Nxxxfwxojw2507 [place] [id number]. Tadeo Smyth Cholesterol in LDL [Mass/Vol] 139.0 mg/dL Normal [facility] Comment on above: Performed By: #### T 7, LIPID, TSH, CMP ####[facility] Qzhwacpalx7520 [place] [id number]. Tadeo Smyth Cholesterol.total/Cho lesterol in HDL [Mass ratio] 3.4 {ratio} Normal [facility] Comment on above: Performed By: #### T 7, LIPID, TSH, CMP ####[facility] Ywuxiccexf2331 [place] [id number]. Margotlan Smyth HDL NORMAL > or = 60 mg/dl - LO W CARDIOVASCULAR RISK <40 mg/dl - HIGH CARDIOVASCULAR RISK Normal [facility] Comment on above: Performed By: #### T 7, LIPID, TSH, CMP ####[facility] Lvqtumlwql6788 [place] [id number]. Margotlan Smyth LDL CALC NORMAL SEE BELOW Normal [facility] Comment on above: Result Comment: <100 mg/dl OPTIMAL 100 - 129 mg/dl NEAR OR ABOVE OPTIMAL 130 - 159 mg/dl BORDERLINE HIGH 160 - 189 mg/dl HIGH >190 mg/dl VERY HIGH Performed By: #### T 7, LIPID, TSH, CMP ####[facility] Pllzmxfuta[address] [place], [place] [id number]. Tadeo Smyth Triglyceride [Mass/Vol] 105 mg/dL Normal <=150 [facility] Comment on above: Performed By: #### T 7, LIPID, TSH, CMP ####[facility] Tmofdgynxg4031 [place] [address]Dr. Tadeo Smyth VLDL CALC 21.0 mg/dL Normal [facility] Comment on above: Performed By: #### T 7, LIPID, TSH, CMP ####[facility] Kxinbcomys37[address] [place] [address]Dr. Tadeo Smyth OCC BLD IMMUNO SCREENon 11-0 OCCULT BLOOD Negative Normal NEGATIVE [facility] Comment on above: Performed By: #### O BSCRN ####[facility] Asaudubbha76[address] [place] [address]Dr. Tadeo Smyth PROF 14(COMP METB)on 022 Albumin [Mass/Vol] 3.7 g/dL Normal 3.4-5.0 [facility] Comment on above: Performed By: #### T 7, LIPID, TSH, CMP ####[facility] Vkwvulhxgo4573 [place] [address]Dr. Tadeo Smyth Albumin/Globulin [Mass ratio] 0.8 {ratio} Normal [facility] Comment on above: Performed By: #### T 7, LIPID, TSH, CMP ####[facility] Labkcatpkx3710 [place] [address]Dr. Tadeo Smyth ALP [Catalytic activity/Vol] 141 U/L Critically high 46-116 [facility] Comment on above: Performed By: #### T 7, LIPID, TSH, CMP ####[facility] Wkudagazcg0097 [place] [address]Dr. Tadeo Smyth ALT [Catalytic activity/Vol] 23 U/L Normal 14-59 [facility] Comment on above: Performed By: #### T 7, LIPID, TSH, CMP ####[facility] Ijytnulfap9659 [place] [address]Dr. Tadeo Smyth Anion gap [Moles/Vol] 9.8 mmol/L Normal [facility] Comment on above: Performed By: #### T 7, LIPID, TSH, CMP ####[facility] Fqzyxusink[address] [place], [place] [address]Dr. Tadeo Smyth AST [Catalytic activity/Vol] 13 U/L Critically low 15-37 [facility] Comment on above: Performed By: #### T 7, LIPID, TSH, CMP ####[facility] Yzzydcihjw[address] [place], [place] [address]Dr. Tadeo Smyth Bilirubin [Mass/Vol] 0.4 mg/dL Normal 0.2-1.0 [facility] Comment on above: Performed By: #### T 7, LIPID, TSH, CMP ####[facility] Anbnaqqgwq[address] [place], [place] [address]Dr. Tadeo Smyth Calcium [Mass/Vol] 10.2 mg/dL Critically high 8.5-10.1 [facility] Comment on above: Performed By: #### T 7, LIPID, TSH, CMP ####[facility] Cpvjganitv8[address] [place], [place] [address]Dr. Tadeo Smyth Chloride [Moles/Vol] 101 mmol/L Normal 98-107 [facility] Comment on above: Performed By: #### T 7, LIPID, TSH, CMP ####[facility] Pwflspzwct[address] [place], [place] [address]Dr. Tadeo Smyth CO2 [Moles/Vol] 32.8 mmol/L Critically high 21.0-32.0 [facility] Comment on above: Performed By: #### T 7, LIPID, TSH, CMP ####[facility] Enuiuigkpq[address] [place], [place] [address]Dr. Tadeo Smyth Creatinine [Mass/Vol] 0.92 mg/dL Normal 0.55-1.02 [facility] Comment on above: Performed By: #### T 7, LIPID, TSH, CMP ####[facility] Efkhoggtoh6[address] [place], [place] [address]Dr. Tadeo Smyth EGFR-AF GREEK >60 Normal >=60 [facility] Comment on above: Performed By: #### T 7, LIPID, TSH, CMP ####[facility] Ufglfmwtov1757 [place] [address]Dr. Tadeo Smyth EGFR-NON AF GREEK >60 Normal >=60 [facility] Comment on above: Performed By: #### T 7, LIPID, TSH, CMP ####[facility] Zyuuylzaxg7161 [place] [address]Dr. Tadeo Smyth Globulin (S) [Mass/Vol] 4.8 g/dL Normal [facility] Comment on above: Performed By: #### T 7, LIPID, TSH, CMP ####[facility] Qjklfwkcyy4976 [place] [address]Dr. Tadeo Smyth Glucose [Mass/Vol] 114 mg/dL Critically high 74-106 [facility] Comment on above: Performed By: #### T 7, LIPID, TSH, CMP ####[facility] C[address]nrdsvwmx[address] [place], [place] [address]Dr. Tadeo Smyth Potassium [Moles/Vol] 3.6 mmol/L Normal 3.5-5.1 [facility] Comment on above: Performed By: #### T 7, LIPID, TSH, CMP ####[facility] Pzcxnkkphi4594 [place] [address]Dr. Tadeo Smyth Protein [Mass/Vol] 8.5 g/dL Critically high 6.4-8.2 [facility] Comment on above: Performed By: #### T 7, LIPID, TSH, CMP ####[facility] Tncuplwmqw9946 [place] [address]Dr. Tadeo Smyth Sodium [Moles/Vol] 140 mmol/L Normal 136-145 [facility] Comment on above: Performed By: #### T 7, LIPID, TSH, CMP ####[facility] Tofrkgxahk6120 [place] [address]Dr. Tadeo Symth Urea nitrogen [Mass/Vol] 23.0 mg/dL Critically high 7.0-18.0 [facility] Comment on above: Performed By: #### T 7, LIPID, TSH, CMP ####[facility] [facility] [address] [place] [address]Dr. Tadeo Smyth Urea nitrogen/Creatinine [Mass ratio] 25.0 mg/mg Normal [facility] Comment on above: Performed By: #### T 7, LIPID, TSH, CMP ####[facility] [address] [place] [address]Dr. Tadeo Smyth TSHon 07-08-2022 TSH 3.748 uIU/mL Critically high 0.358-3.740 [facility] Comment on above: Performed By: #### T 7, LIPID, TSH, CMP ####[facility] A[address]jxxpqfx[address] [place], [place] [address]Dr. Tadeo Smyth UA RANDOM W/MICROSCOPICon BACTERIA TRACE Abnormal NONE SEEN [facility] Comment on above: Performed By: #### U AMIC ####[facility] Rxupgfdzpr[address] [place], [place] [address]Dr. Tadeo Smyth Bilirubin Ql (U) Negative Normal NEGATIVE [facility] Comment on above: Performed By: #### U AMIC ####[facility] Bvxfmwhzpj[address] [place], [place] [address]Dr. Tadeo Smyth CAST NONE SEEN Normal NONE SEEN [facility] Comment on above: Performed By: #### U AMIC ####[facility] [id number] [place], [place] [address]Dr. Tadeo Smyth Clarity (U) CLEAR Normal CLEAR [facility] Comment on above: Performed By: #### U AMIC ####[facility] U[address]jwvstsv65[address] [place], [place] [address]Dr. Tadeo Smyth Color (U) YELLOW Normal YELLOW [facility] Comment on above: Performed By: #### U AMIC ####[facility] Adnlsyveew[address] [place], [place] [address]Dr. Tadeo Smyth Crystals LM Nom (Urine sed) NONE SEEN Normal NONE SEEN [facility] Comment on above: Performed By: #### U AMIC ####[facility] Nmgybcbycw[address] [place], [place] [address]Dr. Tadeo Smyth Epithelial cells LM Ql (Urine sed) FEW Abnormal NONE SEEN /RARE [facility] Comment on above: Performed By: #### U AMIC ####[facility] [address] [place] [address]Dr. Tadeo Smyth Glucose Ql (U) Negative Normal NEGATIVE [facility] Comment on above: Performed By: #### U AMIC ####[facility] Uvdzoqlbqq7484[address] [place], [place] [address]Dr. Tadeo Smyth Hemoglobin Ql (U) SMALL Abnormal NEGATIVE [facility] Comment on above: Performed By: #### U AMIC ####[facility] Crkcsegotb64[address] [place], [place] [address]Dr. Tadeo Smyth Ketones Ql (U) TRACE Abnormal NEGATIVE [facility] Comment on above: Performed By: #### U AMIC ####[facility] Maupjaeyzx6[address] [place], [place] [address]Dr. Tadeo Smyth LEUKOCYTES TRACE Abnormal NEGATIVE [facility] Comment on above: Performed By: #### U AMIC ####[facility] Xuavmoouqt615[address] [place], [place] [address]Dr. Tadeo Smyth MUCOUS NONE SEEN Normal NONE SEEN [facility] Comment on above: Performed By: #### U AMIC ####[facility] Dgyqzksytm1417[address] [place], [place] [address]Dr. Tadeo Smyth Nitrite Ql (U) Negative Normal NEGATIVE [facility] Comment on above: Performed By: #### U AMIC ####[facility] Raxqitqetj2018[address] [place], [place] [address]Dr. Tadeo Smyth pH (U) 6.5 [pH] Normal 5-9 [facility] Comment on above: Performed By: #### U AMIC ####[facility] Folmvjsllh66[address] [place], [place] [address]Dr. Tadeo Smyth RBC 5-10 Abnormal 0-2 [facility] Comment on above: Performed By: #### U AMIC ####[facility] Pvopbbistd[address] [place], [place] [address]Dr. Tadeo Smyth SPEC GRAVITY 1.020 Normal 1.005-<=1.0 25 [facility] Comment on above: Performed By: #### U AMIC ####[facility] Zvksljjpqi6[address] [place], [place] [address]Dr. Tadeo Smyth UA PROTEIN 30 mg/dl Abnormal NEGATIVE/ TRACE [facility] Comment on above: Performed By: #### U AMIC ####[facility] [address] [place] [id number]. Tadeo Smyth Urobilinogen Qn (U) 0.2 {Benito'U}/dL Normal 0.2 - 1. 0 [facility] Comment on above: Performed By: #### U AMIC ####[facility] [address] [place] [id number]. Tadeo Smyth WBC 2-5 Abnormal NONE SEEN [facility] Comment on above: Performed By: #### U AMIC ####[facility] [address] [place] [id number]. Tadeo Smyth [facility]on 06-07 SARS-CoV-2 (COVID-19) RNA CHEN+probe Ql (Unsp spec) Not detected Normal NOT DETECTED [facility] Comment on above: Result Comment: When diagnostic testing is negative, the possibility of a false negative should be considered inthe context of a patient's recent exposures and the presence of clinical signs and symptomsconsistent with SARS-CoV-2.This test is not yet approved or cleared by the [place] FDA. When there are no FDA-approved or cleared tests available, and other criteria are met, FDA can make tests available under an emergency access mechanism called an Emergency Use Authorization (EUA). The EUA for this test is supported by the [employer] of Health and Human Service's declaration that circumstances exist to justify the emergency use of in vitro diagnostics for the detection and/or diagnosis of the virus that causes COVID-19. This EUA will remain in effect for the duration of the COVID-19 declaration justifying emergency of IVDs, unless it is terminated or revoked by the FDA (after which the test may no longer be used). Performed By: #### C VDTBH ####[facility] [address] [place], [place] [address]Et. Tadeo Smyth CULTURE URINEon 06-09-2022 CULTURE URINE Normal [facility] Comment on above: Performed By: #### U RCX ####[facility] Aylyokbalv[address] [place], [place] [address]Dr. Tadeo Smyth GI PANEL (PCR)on 06-07-2022 Adenovirus F 40/41 Not detected Normal NOT DETECTED [facility] Comment on above: Performed By: #### G IPANEL ####[facility] Hbzvrcocfi1118[address] [place], [place] [address]Dr. Margotnicole Smyth Astrovirus Not detected Normal NOT DETECTED [facility] Comment on above: Performed By: #### G IPANEL ####[facility] Zrvmypabtw9[address] [place], [place] [address]Dr. Tadeo Smyth C. Diff toxin A/B Not detected Normal NOT DETECTED [facility] Comment on above: Performed By: #### G IPANEL ####[facility] Heqpmvnrae7794[address] [place], [place] [address]Dr. Tadeo Smyth Campylobacter Not detected Normal NOT DETECTED [facility] Comment on above: Performed By: #### G IPANEL ####[facility] Ekdeqgpelz39[address] [place], [place] [address]Dr. Margotnicole Smyth Cryptosporidium Not detected Normal NOT DETECTED [facility] Comment on above: Performed By: #### G IPANEL ####[facility] Fwvcgyiylf8826[address] [place], [place] [address]Dr. Margotnicole Smyth Cyclos. Cayetanensis Not detected Normal NOT DETECTED [facility] Comment on above: Performed By: #### G IPANEL ####[facility] Dzqbfitetk7934[address] [place], [place] [address]Dr. Margotnicole Smyth E. Coli O157 Not Applicable Normal Not Applicable [facility] Comment on above: Performed By: #### G IPANEL ####[facility] Rczvtaajsc4712[address] [place], [place] [address]Dr. Margotnicole Smyth E. histolytica Not detected Normal NOT DETECTED [facility] Comment on above: Performed By: #### G IPANEL ####[facility] Dudhemfbug9835[address] [place], [place] [address]Dr. Margotnicole Smyth EAEC Not detected Normal NOT DETECTED [facility] Comment on above: Performed By: #### G IPANEL ####[facility] V[address]msvlcv[address] [place] [id number]. Tadeo Smyth EIEC Not detected Normal NOT DETECTED [facility] Comment on above: Performed By: #### G IPANEL ####[facility] Axqsnoceux[address] [place] [address]Dr. Tadeo Smyth EPEC Not detected Normal NOT DETECTED [facility] Comment on above: Performed By: #### G IPANEL ####[facility] Gfiogxqrki4179[address] [place], [place] [address]Dr. Tadeo Smyth ETEC Not detected Normal NOT DETECTED [facility] Comment on above: Performed By: #### G IPANEL ####[facility] Kzmldkrnlg2717[address] [place], [place] [address]Dr. Tadeo Smyth G. Lamblia Not detected Normal NOT DETECTED [facility] Comment on above: Performed By: #### G IPANEL ####[facility] Oqxiocygwe3617[address] [place], [place] [address]Dr. Tadeo Smyth GIPANEL CONTROLS PASSED Normal [facility] Comment on above: Performed By: #### G IPANEL ####[facility] Mhvkmtatua4925[address] [place], [place] [address]Dr. Tadeo MEZANL ARRON HEADER GI PANEL BACTERIA Normal [facility] Comment on above: Performed By: #### G IPANEL ####[facility] Trsolzviat1823[address] [place], [place] [address]Dr. Tadeo MEZANLHD ECOLI GI PANEL DIARRHEAGEN IC E.COLI / SHIGELLA Normal [facility] Comment on above: Performed By: #### G IPANEL ####[facility] Uleuurlfzj9273[address] [place], [place] [address]Dr. Margotnicole Smyth GIPNLHD INFO SEE BELOW Normal [facility] Comment on above: Result Comment: EAEC - Enteroaggregative E. Coli EPEC- Enteropathogenic E. Coli ETEC- Enterotoxigenic E. Coli lt/st STEC- Shigella-like toxin-producing E. Coli stx1/stx2 EIEC- Shigella/Enteroinvasive E. Coli Performed By: #### G IPANEL ####[facility] Sliaeyccgn0537[address] [place], [place] [address]Dr. Tadeo Smyth GIPNLHD PARASITES GI PANEL PARASITES Normal [facility] Comment on above: Performed By: #### G IPANEL ####[facility] Wudnpwrvoz6414[address] [place], [place] [address]Dr. Tadeo Smyth GIPNLHD VIRUS GI PANEL VIRUSES Normal [facility] Comment on above: Performed By: #### G IPANEL ####[facility] Wfourkqhxe1445[address] [place], [place] [address]Dr. Tadeo Smyth Norovirus GI/GII Not detected Normal NOT DETECTED [facility] Comment on above: Performed By: #### G IPANEL ####[facility] Ohnzwzzxmg7612[address] [place], [place] [address]Dr. Tadeo Smyth P. Shigelloides Not detected Normal NOT DETECTED [facility] Comment on above: Performed By: #### G IPANEL ####[facility] Olslznsmry86[address] [place], [place] [address]Dr. Tadeo Smyth Rotavirus A Not detected Normal NOT DETECTED [facility] Comment on above: Performed By: #### G IPANEL ####[facility] Bozsyfhpnq1604[address] [place], [place] [address]Dr. Tadeo Smyth Salmonella Not detected Normal NOT DETECTED [facility] Comment on above: Performed By: #### G IPANEL ####[facility] Hjhzrpervv9345[address] [place], [place] [address]Dr. Tadeo Smyth Sapovirus Not detected Normal NOT DETECTED [facility] Comment on above: Performed By: #### G IPANEL ####[facility] Nrqqhilbnc5[address] [place], [place] [address]Dr. Tadeo Smyth STEC Not detected Normal NOT DETECTED [facility] Comment on above: Performed By: #### G IPANEL ####[facility] Uocyvqitnn7066[address] [place], [place] [address]Dr. Tadeo Smyth Vibrio Not detected Normal NOT DETECTED [facility] Comment on above: Performed By: #### G IPANEL ####[facility] Zczyemzhur[address] [place], [place] [address]Dr. Tadeo Smyth Vibrio Cholera Not detected Normal NOT DETECTED [facility] Comment on above: Performed By: #### G IPANEL ####[facility] [address] [place] [address]Dr. Tadeo Smyth Y. Enterocolitica Not detected Normal NOT DETECTED [facility] Comment on above: Performed By: #### G IPANEL ####[facility] Gfwlchewiw[address]36[address] [place], [place] [address]Dr. Margotnicole Smyth AMYLASEon 06-06-2022 Amylase [Catalytic activity/Vol] 61 U/L Normal 25-115 [facility] Comment on above: Performed By: #### A MY, LIPA ####[facility] Fkpjvulweq119[address] [place], [place] [address]Dr. Tadeo Smyth CBC AUTO DIFFon 06-06-2022 BASO # 0.0 103/ul Normal 0.0-0.1 [facility] Comment on above: Performed By: #### C BC ####[facility] Cyjszagqnk8438[address] [place], [place] [address]Dr. Tadeo Smyth Basophils/100 WBC (Bld) 0.5 % Normal 0.2-2.0 [facility] Comment on above: Performed By: #### C BC ####[facility] Hnlsbbbqna8363[address] [place], [place] [address]Dr. Tadeo Smyth EO # 0.2 103/ul Normal 0.0-0.7 [facility] Comment on above: Performed By: #### C BC ####[facility] Vyatxgucbz3967[address] [place], [place] [address]Dr. Tadeo Smyth Eosinophils/100 WBC (Bld) 3.4 % Normal 0.9-7.0 [facility] Comment on above: Performed By: #### C BC ####[facility] Qkypvmnwut3943[address] [place], [place] [address]Dr. Tadeo Smyth Erythrocyte distribution width (RBC) [Ratio] 13.2 % Normal 11.0-15.0 [facility] Comment on above: Performed By: #### C BC ####[facility] Icnptkqptw0866[address] [place], [place] [address]Dr. Tadeo Smyth Hematocrit (Bld) [Volume fraction] 38.3 % Normal 36.0-48.0 [facility] Comment on above: Performed By: #### C BC ####[facility] [address] [place] [address]Dr. Tadeo Smyth Hemoglobin (Bld) [Mass/Vol] 12.0 g/dL Normal 12.0-16.0 [facility] Comment on above: Performed By: #### C BC ####[facility] Vdunfctpxy3712[address] [place], [place] [address]Dr. Margotnicole Haja IG # 0.01 10e3/ul Normal 0.00-0.03 [facility] Comment on above: Performed By: #### C BC ####[facility] Orfngzxuaf[address] [place], [place] [address]Dr. Tadeo Smyth IG % 0.2 % Normal 0.0-0.5 [facility] Comment on above: Performed By: #### C BC ####[facility] Auolpojerf3[address] [place], [place] [address]Dr. Tadeo Smyth LYMPH # 1.7 103/ul Normal 1.2-3.8 [facility] Comment on above: Performed By: #### C BC ####[facility] Rhsgupupih9557[address] [place], [place] [address]Dr. Tadeo Smyth Lymphocytes/100 WBC (Bld) 28.1 % Normal 20.5-60.0 [facility] Comment on above: Performed By: #### C BC ####[facility] Kjbbbqemwe[address] [place], [place] [address]Dr. Tadeo Smyth MANUAL DIFF REQ NO Normal [facility] Comment on above: Performed By: #### C BC ####[facility] Jknlaqpxhj8694[address] [place], [place] [address]Dr. Tadeo Smyth MCH (RBC) [Entitic mass] 28.5 pg Normal 26.7-34.0 [facility] Comment on above: Performed By: #### C BC ####[facility] Oklglxtpdu6435[address] [place], [place] [address]Dr. Tadeo Smyth MCHC (RBC) [Mass/Vol] 31.3 g/dL Normal 29.9-35.2 [facility] Comment on above: Performed By: #### C BC ####[facility] [address]rmcl[address] [place] [address]Dr. Tadeo Smyth MCV (RBC) [Entitic vol] 91.0 fL Normal 81.0-99.0 [facility] Comment on above: Performed By: #### C BC ####[facility] Hknoqhdopo[address] [place], [place] [address]Dr. Tadeo Smyth MONO # 0.4 103/ul Normal 0.3-0.8 [facility] Comment on above: Performed By: #### C BC ####[facility] Ihnrtqyqcr17[address] [place], [place] [address]Dr. Tadeo Haja Monocytes/100 WBC (Bld) 7.1 % Normal 1.7-12.0 [facility] Comment on above: Performed By: #### C BC ####[facility] Z[address]fdlktzts[address] [place], [place] [address]Dr. Tadeo Smyth NEUT # 3.6 103/ul Normal 1.4-6.5 [facility] Comment on above: Performed By: #### C BC ####[facility] Uwglkpbrcz[address] [place], [place] [address]Dr. Margotnicole Smyth Neutrophils/100 WBC (Bld) 60.7 % Normal 43.0-75.0 [facility] Comment on above: Performed By: #### C BC ####[facility] Jluhwhqyrb[address] [place], [place] [address]Dr. Tadeo Haja Platelet mean volume (Bld) [Entitic vol] 8.9 fL Critically low 9.5-13.5 [facility] Comment on above: Performed By: #### C BC ####[facility] Bdcpzgulvw[address]89[address] [place], [place] [address]Dr. Margotnicole Haja PLT 374 103/ul Normal 150-450 [facility] Comment on above: Performed By: #### C BC ####[facility] Lcpmzhkiqk26[address] [place], [place] [address]Dr. Tadeo Smyth RBC 4.21 106/ul Normal 4.20-5.40 [facility] Comment on above: Performed By: #### C BC ####[facility] [address] [place] [address]Dr. Tadeo Smyth WBC 5.9 103/ul Normal 4.0-11.0 [facility] Comment on above: Performed By: #### C BC ####[facility] Rfyjkgmmxg65[address] [place], [place] [address]Dr. Tadeo Smyth CT ABD/PELV W CONon 06-06-[address] ABD/PELV W CON Normal [facility] ER URINE PROFILEon 2 Bilirubin Ql (U) Negative Normal NEGATIVE [facility] Comment on above: Performed By: #### KAROL MERCHANT ####[facility] Dqsemuarqf[address] [place], [place] [address]Dr. Tadeo Smyth Clarity (U) CLOUDY Abnormal CLEAR [facility] Comment on above: Performed By: #### KAROL MERCHANT ####[facility] Mgmmbprprt17[address] [place], [place] [address]Dr. Tadeo Smyth Color (U) LT. YELLOW Normal YELLOW [facility] Comment on above: Performed By: #### KAROL MERCHANT ####[facility] Pxphxyesfl4[address] [place], [place] [address]Dr. Tadeo Smyth ERUAHD A micrscopic examina tion will be performed if indicated. Normal [facility] Comment on above: Performed By: #### KAROL MERCHANT ####[facility] Uxjqyczpik3[address] [place], [place] [address]Dr. Tadeo Smyth Glucose Ql (U) Negative Normal NEGATIVE [facility] Comment on above: Performed By: #### SANDRO MERCHANTRO ####[facility] [address]umwtkkbm[address] [place], [place] [address]Dr. Tadeo Smyth Hemoglobin Ql (U) TRACE-INTACT Abnormal NEGATIVE [facility] Comment on above: Performed By: #### SANDRO MERCHANTRO ####[facility] [address]vogxkxxbl37[address] [place], [place] [address]Dr. Tadeo Smyth Ketones Ql (U) Negative Normal NEGATIVE [facility] Comment on above: Performed By: #### SANDRO MERCHANTRO ####[facility] Sdywyipfym[address] [place], [place] [address]Dr. Tadeo Smyth LEUKOCYTES SMALL Abnormal NEGATIVE [facility] Comment on above: Performed By: #### SANDRO MERCHANTRO ####[facility] [address]emt[address] [place] [address]Dr. Tadeo Smyth Nitrite Ql (U) Negative Normal NEGATIVE [facility] Comment on above: Performed By: #### SANDRO MERCHANTRO ####[facility] Pdhnnoncyr27[address] [place] [address]Dr. Tadeo Smyth pH (U) 6.0 [pH] Normal 5-9 [facility] Comment on above: Performed By: #### SANDRO MERCHANTRO ####[facility] [address]femkgbhtb[address] [place], [place] [address]Dr. Tadeo Smyth SPEC GRAVITY 1.020 Normal 1.005-<=1.0 25 [facility] Comment on above: Performed By: #### SANDRO MERCHANTRO ####[facility] [address]naunvzxjr[address] [place], [place] [address]Dr. Tadeo Smyth UA PROTEIN Negative Normal NEGATIVE/ TRACE [facility] Comment on above: Performed By: #### SANDRO MERCHANTRO ####[facility] Wvwkexkieo[address] [place], [place] [address]Dr. Tadeo Smyth UR MICRO IND INDICATED Normal [facility] Comment on above: Performed By: #### SANDRO MERCHANTRO ####[facility] [address]qtejyqa[address] [place], [place] [address]Dr. Tadeo Smyth Urobilinogen Qn (U) 0.2 {Benito'U}/dL Normal 0.2 - 1. 0 [facility] Comment on above: Performed By: #### SANDRO MERCHANTRO ####[facility] Noytkiyhqk[address] [place], [place] [address]Dr. Tadeo Smyth LIPASEon 06-06-2022 Lipase [Catalytic activity/Vol] 100.0 U/L Normal 73.0-393.0 [facility] Comment on above: Performed By: #### A KEITH MARTÍNEZ ####[facility] X[address]circ[address] [place] [address]Dr. Tadeo Smyth PROF 14(COMP METB)on 022 Albumin [Mass/Vol] 3.3 g/dL Critically low 3.4-5.0 [facility] Comment on above: Performed By: #### C MP ####[facility] [address] [place] [address]Dr. Tadeo Smyth Albumin/Globulin [Mass ratio] 0.9 {ratio} Normal [facility] Comment on above: Performed By: #### C MP ####[facility] [address]jbaknh[address] [place], [place] [address]Dr. Tadeo Smyth ALP [Catalytic activity/Vol] 140 U/L Critically high 46-116 [facility] Comment on above: Performed By: #### C MP ####[facility] Vriegvmwcl[address] [place], [place] [address]Dr. Tadeo Smyth ALT [Catalytic activity/Vol] 23 U/L Normal 14-59 [facility] Comment on above: Performed By: #### C MP ####[facility] [facility] [id number] [place], [place] [address]Dr. Tadeo Smyth Anion gap [Moles/Vol] 11.6 mmol/L Normal Th [facility] Comment on above: Performed By: #### C MP ####[facility] [id number] [place], [place] [address]Dr. Tadeo Smyth AST [Catalytic activity/Vol] 18 U/L Normal 15-37 [facility] Comment on above: Performed By: #### C MP ####[facility] Ilcagvesjy[address] [place], [place] [address]Dr. Tadeo Smyth Bilirubin [Mass/Vol] 0.2 mg/dL Normal 0.2-1.0 [facility] Comment on above: Performed By: #### C MP ####[facility] Glnfenhfsg[address] [place], [place] [address]Dr. Tadeo Smyth Calcium [Mass/Vol] 8.8 mg/dL Normal 8.5-10.1 [facility] Comment on above: Performed By: #### C MP ####[facility] [address] [place] [address]Dr. Tadeo Smyth Chloride [Moles/Vol] 109 mmol/L Critically high 98-107 [facility] Comment on above: Performed By: #### C MP ####[facility] [address]ajpxhkj[address] [place] [address]Dr. Tadeo Smyth CO2 [Moles/Vol] 26.3 mmol/L Normal 21.0-32.0 [facility] Comment on above: Performed By: #### C MP ####[facility] Jqcgyojgvp[address] [place], [place] [address]Dr. Tadeo Smyth Creatinine [Mass/Vol] 0.81 mg/dL Normal 0.55-1.02 [facility] Comment on above: Performed By: #### C MP ####[facility] Fywgzpfjbr[address] [place], [place] [address]Dr. Tadeo Smyth EGFR-AF GREEK >60 Normal >=60 [facility] Comment on above: Performed By: #### C MP ####[facility] Bqopbvtvrv22[address] [place], [place] [address]Dr. Tadeo Smyth EGFR-NON AF GREEK >60 Normal >=60 [facility] Comment on above: Performed By: #### C MP ####[facility] Bxbrnbwjed2335[address] [place], [place] [address]Dr. Tadeo Smyth Globulin (S) [Mass/Vol] 3.7 g/dL Normal [facility] Comment on above: Performed By: #### C MP ####[facility] Uttluqeegv7[address] [place], [place] [address]Dr. Tadeo Smyth Glucose [Mass/Vol] 90 mg/dL Normal 74-106 [facility] Comment on above: Performed By: #### C MP ####[facility] W[address]hdwrmkbn8[address] [place], [place] [address]Dr. Tadeo Smyth Potassium [Moles/Vol] 3.9 mmol/L Normal 3.5-5.1 [facility] Comment on above: Performed By: #### C MP ####[facility] [address]xdntvdxpl[address] [place] [address]Dr. Tadeo Smyth Protein [Mass/Vol] 7.0 g/dL Normal 6.4-8.2 [facility] Comment on above: Performed By: #### C MP ####[facility] Hfeafuqvsa[address] [place] [address]Dr. Margotnicole Haja Sodium [Moles/Vol] 143 mmol/L Normal 136-145 [facility] Comment on above: Performed By: #### C MP ####[facility] Jlurfoznso1572 [place] [address]Dr. Tadeo Haja Urea nitrogen [Mass/Vol] 12.0 mg/dL Normal 7.0-18.0 [facility] Comment on above: Performed By: #### C MP ####[facility] Kvuemuluaj10[address] [place], [place] [address]Dr. Tadeo Smyth Urea nitrogen/Creatinine [Mass ratio] 14.8 mg/mg Normal [facility] Comment on above: Performed By: #### C MP ####[facility] Fhogsksojm7[address] [place], [place] [address]Dr. Tadeo Smyth URINE MICROSCOPIC ONLYon BACTERIA LARGE Abnormal NONE SEEN [facility] Comment on above: Performed By: #### SANDRO MERCHANTRO ####[facility] Mndblybmqx9[address] [place], [place] [address]Dr. Tadeo Smyth Bacteria identified Cx Nom (U) INDICATED Normal [facility] Comment on above: Performed By: #### SANDRO MERCHANTRO ####[facility] Hmrbxxmigj9[address] [place] [address]Dr. Tadeo Smyth CAST NONE SEEN Normal NONE SEEN [facility] Comment on above: Performed By: #### SANDRO MERCHANTRO ####[facility] Lvxdqkzndo4[address] [place], [place] [address]Dr. Tadeo Smyth Crystals LM Nom (Urine sed) NONE SEEN Normal NONE SEEN [facility] Comment on above: Performed By: #### SANDRO MERCHANTRO ####[facility] Llgkkyhvob5096 [place] [address]Dr. Tadeo Smyth Epithelial cells LM Ql (Urine sed) RARE Normal NONE SEEN /RARE [facility] Comment on above: Performed By: #### KAROL MERCHANT ####[facility] Emqsnxxemq8812 [place] [address]Dr. Tadeo Smyth MUCOUS TRACE Abnormal NONE SEEN [facility] Comment on above: Performed By: #### KAROL MERCHANT ####[facility] Auksrdedqw5636 [place] [address]Dr. Tadeo Haja RBC 0-2 Normal 0-2 [facility] Comment on above: Performed By: #### KAROL MERCHANT ####[facility] Sgiymubixi4524[address] [place], [place] [address]Dr. Tadeo Smyth WBC 2-5 Abnormal NONE SEEN [facility] Comment on above: Performed By: #### KAROL MERCHANT ####[facility] Klqhkhixcp[address] [place], [place] [address]Dr. Tadeo Smyth AMYLASEon 06-04-2022 Amylase [Catalytic activity/Vol] 61 U/L Normal 25-115 [facility] Comment on above: Performed By: #### A MY, CMP, LIPA ####[facility] Ajdyjwfypw5829[address] [place], [place] [address]Dr. Tadeo Smyth CBC AUTO DIFFon 06-04-2022 BASO # 0.0 103/ul Normal 0.0-0.1 [facility] Comment on above: Performed By: #### C BC ####[facility] Iipjauvyjl368[address] [place], [place] [address]Dr. Tadeo Haja Basophils/100 WBC (Bld) 0.5 % Normal 0.2-2.0 [facility] Comment on above: Performed By: #### C BC ####[facility] Kqenifumyf[address] [place], [place] [address]Dr. Margotnicole Smyth EO # 0.3 103/ul Normal 0.0-0.7 [facility] Comment on above: Performed By: #### C BC ####[facility] Fakojrpbju1554[address] [place], [place] [address]Dr. Tadeo Smyth Eosinophils/100 WBC (Bld) 4.7 % Normal 0.9-7.0 [facility] Comment on above: Performed By: #### C BC ####[facility] Kyniifllac640[address] [place], [place] [address]Dr. Tadeo Smyth Erythrocyte distribution width (RBC) [Ratio] 13.2 % Normal 11.0-15.0 [facility] Comment on above: Performed By: #### C BC ####[facility] Oowzexkvge6147[address] [place], [place] [address]Dr. Tadeo Smyth Hematocrit (Bld) [Volume fraction] 36.9 % Normal 36.0-48.0 [facility] Comment on above: Performed By: #### C BC ####[facility] Bxwqgnxfvh8[address] [place], [place] [address]Dr. Tadeo Smyth Hemoglobin (Bld) [Mass/Vol] 11.9 g/dL Critically low 12.0-16.0 [facility] Comment on above: Performed By: #### C BC ####[facility] Mkglrqdxsh212[address] [place], [place] [address]Dr. Tadeo Smyth IG # 0.01 10e3/ul Normal 0.00-0.03 [facility] Comment on above: Performed By: #### C BC ####[facility] Yanofvihhy55[address] [place], [place] [address]Dr. Tadeo Smyth IG % 0.2 % Normal 0.0-0.5 [facility] Comment on above: Performed By: #### C BC ####[facility] Ijxbnpebis5062[address] [place], [place] [address]Dr. Tadeo Smyth LYMPH # 2.3 103/ul Normal 1.2-3.8 [facility] Comment on above: Performed By: #### C BC ####[facility] Vzlnabrqqh7[address] [place], [place] [address]Dr. Tadeo Smyth Lymphocytes/100 WBC (Bld) 37.3 % Normal 20.5-60.0 [facility] Comment on above: Performed By: #### C BC ####[facility] [address]imjanwqh[address] [place] [id number]. Tadeo Smyth MANUAL DIFF REQ NO Normal [facility] Comment on above: Performed By: #### C BC ####[facility] Oubclgkzmk54[address] [place] [id number]. Tadeo Smyth MCH (RBC) [Entitic mass] 29.0 pg Normal 26.7-34.0 [facility] Comment on above: Performed By: #### C BC ####[facility] Iklvnqrgob7242 [place] [address]Dr. Tadeo Smyth MCHC (RBC) [Mass/Vol] 32.2 g/dL Normal 29.9-35.2 [facility] Comment on above: Performed By: #### C BC ####[facility] Gloclhwwgc6227 [place] [address]Dr. Tadeo Haja MCV (RBC) [Entitic vol] 90.0 fL Normal 81.0-99.0 [facility] Comment on above: Performed By: #### C BC ####[facility] Dmjsmfjopr[address] [place], [place] [address]Dr. Tadeo Haja MONO # 0.4 103/ul Normal 0.3-0.8 [facility] Comment on above: Performed By: #### C BC ####[facility] Rirmditfpp86[address] [place], [place] [address]Dr. Margotnicole Smyth Monocytes/100 WBC (Bld) 6.8 % Normal 1.7-12.0 [facility] Comment on above: Performed By: #### C BC ####[facility] Pkyqlcftff5243[address] [place], [place] [address]Dr. Tadeo Smyth NEUT # 3.2 103/ul Normal 1.4-6.5 [facility] Comment on above: Performed By: #### C BC ####[facility] Kderhjzqbs[address] [place], [place] [address]Dr. Tadeo Smyth Neutrophils/100 WBC (Bld) 50.5 % Normal 43.0-75.0 [facility] Comment on above: Performed By: #### C BC ####[facility] Ntbxynvfys3967 [place] [address]Dr. Tadeo Smtyh Platelet mean volume (Bld) [Entitic vol] 8.9 fL Critically low 9.5-13.5 [facility] Comment on above: Performed By: #### C BC ####[facility] Lljihyppda7524 [place] [address]Dr. Tadeo Smyth PLT 387 103/ul Normal 150-450 [facility] Comment on above: Performed By: #### C BC ####[facility] Izraklruch[address] [place] [address]Dr. Tadeo Haja RBC 4.10 106/ul Critically low 4.20-5.40 [facility] Comment on above: Performed By: #### C BC ####[facility] Sghobjuiia0094 [place] [address]Dr. Tadeo Smyth WBC 6.2 103/ul Normal 4.0-11.0 [facility] Comment on above: Performed By: #### C BC ####[facility] Awmtkespaj1999[address] [place], [place] [address]Dr. Tadeo Smyth CT ABD/PELV W CONon 06-04-[address] ABD/PELV W CON Normal [facility] ER URINE PROFILEon 2 Bilirubin Ql (U) Negative Normal NEGATIVE [facility] Comment on above: Performed By: #### SANDRO MERCHANTRO ####[facility] Hehhgbpraj75[address] [place], [place] [address]Dr. Tadeo Smyth Clarity (U) CLEAR Normal CLEAR [facility] Comment on above: Performed By: #### SANDRO MERCHANTRO ####[facility] Drkgiedgtd9119 [place] [id number]. Tadeo Smyth Color (U) LT. YELLOW Normal YELLOW [facility] Comment on above: Performed By: #### SANDRO MERCHANTRO ####[facility] Uqwbgqwhne[address] [place], [place] [address]Dr. Tadeo Smyth ERUAHD A micrscopic examina tion will be performed if indicated. Normal [facility] Comment on above: Performed By: #### KAROL MERCHANT ####[facility] Eveegihfcr4667 [place] [address]Dr. Tadeo Smyth Glucose Ql (U) Negative Normal NEGATIVE [facility] Comment on above: Performed By: #### KAROL MERCHANT ####[facility] Siryvmzyks5509 [place] [address]Dr. Tadeo Smyth Hemoglobin Ql (U) TRACE-INTACT Abnormal NEGATIVE [facility] Comment on above: Performed By: #### KAROL MERCHANT ####[facility] Kmqkigvxbc3437 [place] [address]Dr. Tadeo Smyth Ketones Ql (U) Negative Normal NEGATIVE [facility] Comment on above: Performed By: #### KAROL MERCHANT ####[facility] Fckratlzpr20[address] [place], [place] [address]Dr. Tadeo Smyth LEUKOCYTES Negative Normal NEGATIVE [facility] Comment on above: Performed By: #### KAROL MERCHANT ####[facility] Xrsaxmfytn35[address] [place], [place] [address]Dr. Margotnicole Haja Nitrite Ql (U) Negative Normal NEGATIVE [facility] Comment on above: Performed By: #### KAROL MERCHANT ####[facility] Bdmxeppsis[address] [place], [place] [address]Dr. Tadeo Smyth pH (U) 6.5 [pH] Normal 5-9 [facility] Comment on above: Performed By: #### KAROL MERCHANT ####[facility] R[address]jrlccrlk[address] [place], [place] [address]Dr. Tadeo Smyth SPEC GRAVITY 1.015 Normal 1.005-<=1.0 25 [facility] Comment on above: Performed By: #### KAROL MERCHANT ####[facility] Ptmlrbsxrj3227[address] [place], [place] [address]Dr. Tadeo Smyth UA PROTEIN Negative Normal NEGATIVE/ TRACE [facility] Comment on above: Performed By: #### KAROL MERCHANT ####[facility] Grhigktklq6119[address] [place], [place] [address]Dr. Tadeo Smyth UR MICRO IND INDICATED Normal [facility] Comment on above: Performed By: #### KAROL MERCHANT ####[facility] Xsrbrnigqh8269 [place] [address]Dr. Tadeo Smyth Urobilinogen Qn (U) 0.2 {Benito'U}/dL Normal 0.2 - 1. 0 [facility] Comment on above: Performed By: #### KAROL MERCHANT ####[facility] Xxjejbfdmr7655 [place] [address]Dr. Tadeo Smyth LIPASEon 06-04-2022 Lipase [Catalytic activity/Vol] 81.0 U/L Normal 73.0-393.0 [facility] Comment on above: Performed By: #### A MY, CMP, LIPA ####[facility] Njryjbosrt5[address] [place], [place] [address]Dr. Tadeo Smyth PROF 14(COMP METB)on 022 Albumin [Mass/Vol] 3.6 g/dL Normal 3.4-5.0 [facility] Comment on above: Performed By: #### A MY, CMP, LIPA ####[facility] Vjxawefdse6511 [place] [address]Dr. Tadeo Smyth Albumin/Globulin [Mass ratio] 1.0 {ratio} Normal [facility] Comment on above: Performed By: #### A MY, CMP, LIPA ####[facility] Ekuqnwxiar9189[address] [place], [place] [address]Dr. Tadeo Smyth ALP [Catalytic activity/Vol] 150 U/L Critically high 46-116 [facility] Comment on above: Performed By: #### A MY, CMP, LIPA ####[facility] Qxipkkqail9731 [place] [address]Dr. Tadeo Smyth ALT [Catalytic activity/Vol] 23 U/L Normal 14-59 [facility] Comment on above: Performed By: #### A MY, CMP, LIPA ####[facility] Ebpzsjsnax9010 [place] [address]Dr. Tadeo Smyth Anion gap [Moles/Vol] 13.2 mmol/L Normal Th e [facility] Comment on above: Performed By: #### A MY, CMP, LIPA ####[facility] Exhrqtxbek3609 [place] [address]Dr. Tadeo Smyth AST [Catalytic activity/Vol] 12 U/L Critically low 15-37 [facility] Comment on above: Performed By: #### A MY, CMP, LIPA ####[facility] Abytdjebwz9[address] [place], [place] [address]Dr. Tadeo Smyth Bilirubin [Mass/Vol] 0.1 mg/dL Critically low 0.2-1.0 [facility] Comment on above: Performed By: #### A MY, CMP, LIPA ####[facility] Fcfqalkdsh30[address] [place], [place] [address]Dr. Tadeo Smyth Calcium [Mass/Vol] 9.0 mg/dL Normal 8.5-10.1 [facility] Comment on above: Performed By: #### A MY, CMP, LIPA ####[facility] Cggaizrrsx1424[address] [place], [place] [address]Dr. Tadeo Smyth Chloride [Moles/Vol] 104 mmol/L Normal 98-107 [facility] Comment on above: Performed By: #### A MY, CMP, LIPA ####[facility] Lexnzseubq[address] [place], [place] [address]Dr. Tadeo Smyth CO2 [Moles/Vol] 26.6 mmol/L Normal 21.0-32.0 [facility] Comment on above: Performed By: #### A MY, CMP, LIPA ####[facility] Bnkbyxaixl[address] [place], [place] [address]Dr. Tadeo Smyth Creatinine [Mass/Vol] 0.97 mg/dL Normal 0.55-1.02 [facility] Comment on above: Performed By: #### A MY, CMP, LIPA ####[facility] Kelyqcwccl6[address] [place], [place] [address]Dr. Tadeo Smyth EGFR-AF GREEK >60 Normal >=60 [facility] Comment on above: Performed By: #### A MY, CMP, LIPA ####[facility] Gypbetfusk[address] [place] [address]Dr. Tadeo Smyth EGFR-NON AF GREEK 60 mL/min/1.73m2 Normal >=60 [facility] Comment on above: Performed By: #### A MY, CMP, LIPA ####[facility] Qtkymjhmzt8486 [place] [address]Dr. Tadeo Smyth Globulin (S) [Mass/Vol] 3.7 g/dL Normal [facility] Comment on above: Performed By: #### A MY, CMP, LIPA ####[facility] Rbhquhaotc1087 [place] [address]Dr. Tadeo Smyth Glucose [Mass/Vol] 109 mg/dL Critically high 74-106 [facility] Comment on above: Performed By: #### A MY, CMP, LIPA ####[facility] Ogxcycqwzq5243 [place] [address]Dr. Tadeo Smyth Potassium [Moles/Vol] 3.8 mmol/L Normal 3.5-5.1 [facility] Comment on above: Performed By: #### A MY, CMP, LIPA ####[facility] Itjygqlxvp7481 [place] [address]Dr. Tadeo Smyth Protein [Mass/Vol] 7.3 g/dL Normal 6.4-8.2 [facility] Comment on above: Performed By: #### A MY, CMP, LIPA ####[facility] Umuxllkfvk9444 [place] [address]Dr. Tadeo Smyth Sodium [Moles/Vol] 140 mmol/L Normal 136-145 [facility] Comment on above: Performed By: #### A MY, CMP, LIPA ####[facility] Jrxmnifnxb6041 [place] [address]Dr. Tadeo Smyth Urea nitrogen [Mass/Vol] 21.0 mg/dL Critically high 7.0-18.0 [facility] Comment on above: Performed By: #### A MY, CMP, LIPA ####[facility] Kmmyshahot9537 [place] [address]Dr. Tadeo Smyth Urea nitrogen/Creatinine [Mass ratio] 21.6 mg/mg Normal [facility] Comment on above: Performed By: #### A MY, CMP, LIPA ####[facility] Cuvlnwwvhp6263 [place] [address]Dr. Tadeo Smyth URINE MICROSCOPIC ONLYon BACTERIA NONE SEEN Normal NONE SEEN [facility] Comment on above: Performed By: #### Matthew FRANCISCO, UMICRO ####[facility] Uyqwduzdvp28[address] [place] [address]Dr. Tadeo Smyth Bacteria identified Cx Nom (U) NOT INDICATED Normal [facility] Comment on above: Performed By: #### E RUYovanny, UMICRO ####[facility] Pkampodmpj3396 [place] [address]Dr. Tadeo Smyth CAST NONE SEEN Normal NONE SEEN [facility] Comment on above: Performed By: #### E NOLAN UMICRO ####[facility] P[address]dlpwkdkn[address] [place], [place] [address]Dr. Tadeo Smyth Crystals LM Nom (Urine sed) NONE SEEN Normal NONE SEEN [facility] Comment on above: Performed By: #### Matthew RUYovanny UMICRO ####[facility] F[address]xxzyktxc8[address] [place], [place] [address]Dr. Tadeo Smyth Epithelial cells LM Ql (Urine sed) FEW Abnormal NONE SEEN /RARE The [facility] Comment on above: Performed By: #### E NOLAN UMICRO ####[facility] [address]ftjzkb[address] [place], [place] [address]Dr. Tadeo Smyth MUCOUS NONE SEEN Normal NONE SEEN The [facility] Comment on above: Performed By: #### E RUYovanny, UMICRO ####[facility] Ueobirbspk7340 [place] [address]Dr. Tadeo Smyth RBC 0-2 Normal 0-2 [facility] Comment on above: Performed By: #### E RUYovanny, UMICRO ####[facility] Cpnisondqt1469 [place] [address]Dr. Tadeo Smyth WBC NONE SEEN Normal NONE SEEN [facility] Comment on above: Performed By: #### Matthew RUYovanny UMICRO ####[facility] Aesygmnjth8309 [place] [address]Dr. Tadeo Smyth MICRO OTHER TESTSOrdered By: Guillermo Rocha on 04-29-2022 Fecal WBC Lactoferrin Negative (04/29/22 8:00 AM) Normal Negative [facility] Man Sero CULTURE URINEon 03-31-2022 CULTURE URINE Normal [facility] Comment on above: Performed By: #### U RCX ####[facility] T[address]ipjbvhtc6[address] [place], [place] [address]Dr. Tadeo Smyth CBC AUTO DIFFon 03-30-2022 BASO # 0.0 103/ul Normal 0.0-0.1 [facility] Comment on above: Performed By: #### C BC ####[facility] Wralaprfdw8233[address] [place], [place] [address]Dr. Tadeo Smyth Basophils/100 WBC (Bld) 0.4 % Normal 0.2-2.0 [facility] Comment on above: Performed By: #### C BC ####[facility] Xuincpdmkk5035[address] [place], [place] [address]Dr. Tadeo Smyth EO # 0.3 103/ul Normal 0.0-0.7 [facility] Comment on above: Performed By: #### C BC ####[facility] Zncrfderma5[address] [place], [place] [address]Dr. Tadeo Smyth Eosinophils/100 WBC (Bld) 5.1 % Normal 0.9-7.0 [facility] Comment on above: Performed By: #### C BC ####[facility] Xpasoxfwpz5[address] [place], [place] [address]Dr. Tadeo Smyth Erythrocyte distribution width (RBC) [Ratio] 12.8 % Normal 11.0-15.0 [facility] Comment on above: Performed By: #### C BC ####[facility] Rfjckxguxp34[address] [place], [place] [address]Dr. Tadeo Smyth Hematocrit (Bld) [Volume fraction] 36.4 % Normal 36.0-48.0 [facility] Comment on above: Performed By: #### C BC ####[facility] [address] [place], [place] [id number]. Tadeo Smyth Hemoglobin (Bld) [Mass/Vol] 12.0 g/dL Normal 12.0-16.0 [facility] Comment on above: Performed By: #### C BC ####[facility] [address] [place] [address]Dr. Tadeo Smyth IG # 0.02 10e3/ul Normal 0.00-0.03 [facility] Comment on above: Performed By: #### C BC ####[facility] [address]nzwvkop[address] [place] [address]Dr. Tadeo Smyth IG % 0.4 % Normal 0.0-0.5 [facility] Comment on above: Performed By: #### C BC ####[facility] Pwggsrnykq[address] [place], [place] [address]Dr. Tadeo Smyth LYMPH # 1.4 103/ul Normal 1.2-3.8 [facility] Comment on above: Performed By: #### C BC ####[facility] Gjkxdifgxj50[address] [place], [place] [address]Dr. Tadeo Smyth Lymphocytes/100 WBC (Bld) 25.5 % Normal 20.5-60.0 [facility] Comment on above: Performed By: #### C BC ####[facility] [id number] [place], [place] [address]Dr. Tadeo Smyth MANUAL DIFF REQ NO Normal [facility] Comment on above: Performed By: #### C BC ####[facility] Ueavaxzslx687[address] [place], [place] [address]Dr. Tadeo Smyth MCH (RBC) [Entitic mass] 29.1 pg Normal 26.7-34.0 [facility] Comment on above: Performed By: #### C BC ####[facility] Fsrjqtfosd2456[address] [place], [place] [address]Dr. Tadeo Smyth MCHC (RBC) [Mass/Vol] 33.0 g/dL Normal 29.9-35.2 [facility] Comment on above: Performed By: #### C BC ####[facility] Jknhqcnqjs652[address] [place], [place] [address]Dr. Tadeo Smyth MCV (RBC) [Entitic vol] 88.3 fL Normal 81.0-99.0 [facility] Comment on above: Performed By: #### C BC ####[facility] [address]idmeruof[address] [place] [address]DrNeo Smyth MONO # 0.4 103/ul Normal 0.3-0.8 [facility] Comment on above: Performed By: #### C BC ####[facility] Bkjrohxufu9964[address] [place], [place] [address]Dr. Tadeo Smyth Monocytes/100 WBC (Bld) 7.1 % Normal 1.7-12.0 [facility] Comment on above: Performed By: #### C BC ####[facility] Vopwuwogdm884[address] [place], [place] [address]Dr. Tadeo Smyth NEUT # 3.4 103/ul Normal 1.4-6.5 [facility] Comment on above: Performed By: #### C BC ####[facility] Dqebzokmid8009[address] [place], [place] [address]Dr. Tadeo Smyth Neutrophils/100 WBC (Bld) 61.5 % Normal 43.0-75.0 [facility] Comment on above: Performed By: #### C BC ####[facility] Dwkvvqdmcr9647[address] [place], [place] [address]Dr. Tadeo Haja Platelet mean volume (Bld) [Entitic vol] 8.8 fL Critically low 9.5-13.5 [facility] Comment on above: Performed By: #### C BC ####[facility] Cjmufsnrjd4983[address] [place], [place] [address]Dr. Tadeo Haja PLT 324 103/ul Normal 150-450 [facility] Comment on above: Performed By: #### C BC ####[facility] Bvlcbyymoz8206[address] [place], [place] [address]DrNeo Tadeo Haja RBC 4.12 106/ul Critically low 4.20-5.40 [facility] Comment on above: Performed By: #### C BC ####[facility] Xldgmwsxlo7939[address] [place], [place] [address]Dr. Tadeo Smyth WBC 5.5 103/ul Normal 4.0-11.0 [facility] Comment on above: Performed By: #### C BC ####[facility] Zcypsqhsvk4819[address] [place], [place] [address]Dr. Tadeo Smyth PROF 14(COMP METB)on 022 Albumin [Mass/Vol] 3.1 g/dL Critically low 3.4-5.0 [facility] Comment on above: Performed By: #### C MP ####[facility] Ewyhaxzzqp9347[address] [place], [place] [address]DrNeo Smyth Albumin/Globulin [Mass ratio] 0.9 {ratio} Normal [facility] Comment on above: Performed By: #### C MP ####[facility] Ejdfxgljjb4548[address] [place], [place] [address]Dr. Tadeo Smyth ALP [Catalytic activity/Vol] 119 U/L Critically high 46-116 [facility] Comment on above: Performed By: #### C MP ####[facility] Lwenhmiafg4325[address] [place], [place] [address]Dr. Tadeo Smyth ALT [Catalytic activity/Vol] 17 U/L Normal 14-59 [facility] Comment on above: Performed By: #### C MP ####[facility] Bppmsqtydk601[address] [place], [place] [address]DrNeo Smyth Anion gap [Moles/Vol] 12.0 mmol/L Normal [facility] Comment on above: Performed By: #### C MP ####[facility] Emkunrehwz2597[address] [place], [place] [address]Dr. Tadeo Smyth AST [Catalytic activity/Vol] 16 U/L Normal 15-37 [facility] Comment on above: Performed By: #### C MP ####[facility] Lrqsdwjwgl7056[address] [place], [place] [address]DrNeo Smyth Bilirubin [Mass/Vol] 0.4 mg/dL Normal 0.2-1.0 [facility] Comment on above: Performed By: #### C MP ####[facility] Gpizqediol380[address] [place], [place] [address]DrNeo Smyth Calcium [Mass/Vol] 8.9 mg/dL Normal 8.5-10.1 [facility] Comment on above: Performed By: #### C MP ####[facility] Clvnbrqwfm9[address] [place] [address]Dr. Tadeo Smyth Chloride [Moles/Vol] 107 mmol/L Normal 98-107 [facility] Comment on above: Performed By: #### C MP ####[facility] Xznhujaris9484 [place] [address]Dr. Tadeo Smyth CO2 [Moles/Vol] 26.9 mmol/L Normal 21.0-32.0 [facility] Comment on above: Performed By: #### C MP ####[facility] Uzdxmlpbtv2154[address] [place], [place] [address]Dr. Tadeo Smyth Creatinine [Mass/Vol] 0.82 mg/dL Normal 0.55-1.02 [facility] Comment on above: Performed By: #### C MP ####[facility] Pbzgwkzwct1483[address] [place], [place] [address]Dr. Tadeo Smyth EGFR-AF GREEK >60 Normal >=60 [facility] Comment on above: Performed By: #### C MP ####[facility] Uidyoekoii5817[address] [place], [place] [address]Dr. Tadeo Smyth EGFR-NON AF GREEK >60 Normal >=60 [facility] Comment on above: Performed By: #### C MP ####[facility] Edndlezzdq9729[address] [place], [place] [address]Dr. Tadeo Smyth Globulin (S) [Mass/Vol] 3.5 g/dL Normal [facility] Comment on above: Performed By: #### C MP ####[facility] Kawdpwwfus[address] [place] [address]Dr. Tadeo Haja Glucose [Mass/Vol] 104 mg/dL Normal 74-106 [facility] Comment on above: Performed By: #### C MP ####[facility] Fjgltjeidt338[address] [place], [place] [address]Dr. Margotnicole Smyth Potassium [Moles/Vol] 3.9 mmol/L Normal 3.5-5.1 [facility] Comment on above: Performed By: #### C MP ####[facility] Uejtthship[address] [place] [id number]. Tadeo Smyth Protein [Mass/Vol] 6.6 g/dL Normal 6.4-8.2 [facility] Comment on above: Performed By: #### C MP ####[facility] Vgsxtdpogm3594[address] [place], [place] [address]Dr. Tadeo Smyth Sodium [Moles/Vol] 142 mmol/L Normal 136-145 [facility] Comment on above: Performed By: #### C MP ####[facility] Qgxulmyxny600[address] [place], [place] [address]Dr. Tadeo Smyth Urea nitrogen [Mass/Vol] 5.0 mg/dL Critically low 7.0-18.0 [facility] Comment on above: Performed By: #### C MP ####[facility] Inoorqhyzk301[address] [place], [place] [address]Dr. Tadeo Smyth Urea nitrogen/Creatinine [Mass ratio] 6.1 mg/mg Normal [facility] Comment on above: Performed By: #### C MP ####[facility] Oynmczhzuc[address] [place], [place] [address]Dr. Tadeo Smyth CBC AUTO DIFFon 03-29-2022 BASO # 0.0 103/ul Normal 0.0-0.1 [facility] Comment on above: Performed By: #### C BC ####[facility] Btuzhlqprf[address] [place], [place] [address]Dr. Tadeo Haja Basophils/100 WBC (Bld) 0.4 % Normal 0.2-2.0 [facility] Comment on above: Performed By: #### C BC ####[facility] Pdqbxhreby5002[address] [place], [place] [address]Dr. Tadeo Smyth EO # 0.2 103/ul Normal 0.0-0.7 [facility] Comment on above: Performed By: #### C BC ####[facility] Ptheohmsro99[address] [place], [place] [id number]. Tadeo Haja Eosinophils/100 WBC (Bld) 4.3 % Normal 0.9-7.0 [facility] Comment on above: Performed By: #### C BC ####[facility] [address] [place] [address]Dr. Tadeo Smyth Erythrocyte distribution width (RBC) [Ratio] 12.9 % Normal 11.0-15.0 [facility] Comment on above: Performed By: #### C BC ####[facility] Hmwczvlfzn534[address] [place], [place] [address]Dr. Margotnicole Haja Hematocrit (Bld) [Volume fraction] 33.8 % Critically low 36.0-48.0 [facility] Comment on above: Performed By: #### C BC ####[facility] Oyeajjedfd1494[address] [place], [place] [address]Dr. Margotnicole Smyth Hemoglobin (Bld) [Mass/Vol] 11.1 g/dL Critically low 12.0-16.0 [facility] Comment on above: Performed By: #### C BC ####[facility] Wbvrgkiqas5034[address] [place], [place] [address]Dr. Tadeo Smyth IG # 0.01 10e3/ul Normal 0.00-0.03 [facility] Comment on above: Performed By: #### C BC ####[facility] Ctawzihtqk259[address] [place], [place] [address]Dr. Tadeo Smyth IG % 0.2 % Normal 0.0-0.5 [facility] Comment on above: Performed By: #### C BC ####[facility] Vswcdcrmsb4064[address] [place], [place] [address]Dr. Tadeo Smyth LYMPH # 1.5 103/ul Normal 1.2-3.8 [facility] Comment on above: Performed By: #### C BC ####[facility] Fjqqveetwr1907[address] [place], [place] [address]Dr. Tadoe Smyth Lymphocytes/100 WBC (Bld) 29.9 % Normal 20.5-60.0 [facility] Comment on above: Performed By: #### C BC ####[facility] Zculdnyayz7795[address] [place], [place] [address]Dr. Tadeo Smyth MANUAL DIFF REQ NO Normal [facility] Comment on above: Performed By: #### C BC ####[facility] Feotujxdrk7[address] [place] [address]Dr. Tadeo Haja MCH (RBC) [Entitic mass] 29.3 pg Normal 26.7-34.0 [facility] Comment on above: Performed By: #### C BC ####[facility] Jlczlxxedw2243 [place] [address]Dr. Tadeo Smyth MCHC (RBC) [Mass/Vol] 32.8 g/dL Normal 29.9-35.2 [facility] Comment on above: Performed By: #### C BC ####[facility] Mgcitjsess4776[address] [place], [place] [address]DrNeo Smyth MCV (RBC) [Entitic vol] 89.2 fL Normal 81.0-99.0 [facility] Comment on above: Performed By: #### C BC ####[facility] Vivaibnnem1353[address] [place], [place] [address]DrNeo Smyth MONO # 0.4 103/ul Normal 0.3-0.8 [facility] Comment on above: Performed By: #### C BC ####[facility] Xpjlaepjwd6178[address] [place], [place] [address]Dr. Tadeo Smyth Monocytes/100 WBC (Bld) 7.8 % Normal 1.7-12.0 [facility] Comment on above: Performed By: #### C BC ####[facility] Fubtrqbvrr0557[address] [place], [place] [address]DrNeo Smyth NEUT # 2.8 103/ul Normal 1.4-6.5 [facility] Comment on above: Performed By: #### C BC ####[facility] Pilhthqcjo8255[address] [place], [place] [address]DrNeo Smyth Neutrophils/100 WBC (Bld) 57.4 % Normal 43.0-75.0 [facility] Comment on above: Performed By: #### C BC ####[facility] Lsrdyiiotz7257[address] [place], [place] [address]DrNeo Smyth Platelet mean volume (Bld) [Entitic vol] 8.9 fL Critically low 9.5-13.5 [facility] Comment on above: Performed By: #### C BC ####[facility] [address]mgqzuoyl[address] [place] [address]Dr. Tadeo Smyth PLT 314 103/ul Normal 150-450 [facility] Comment on above: Performed By: #### C BC ####[facility] Tyaoqezerm9743 [place] [address]Dr. Tadeo Smyth RBC 3.79 106/ul Critically low 4.20-5.40 [facility] Comment on above: Performed By: #### C BC ####[facility] Lkzmliyxgr4205 [place] [address]Dr. Tadeo Smyth WBC 4.9 103/ul Normal 4.0-11.0 [facility] Comment on above: Performed By: #### C BC ####[facility] Cessjrolnh0333 [place] [address]DrNeo Smyth PROF 14(COMP METB)on 022 Albumin [Mass/Vol] 2.8 g/dL Critically low 3.4-5.0 [facility] Comment on above: Performed By: #### C MP ####[facility] Oeyezfipsa77[address] [place] [address]DrNeo Smyth Albumin/Globulin [Mass ratio] 0.8 {ratio} Normal [facility] Comment on above: Performed By: #### C MP ####[facility] Wmlghdbunl9587 [place] [address]Dr. Tadeo Smyth ALP [Catalytic activity/Vol] 117 U/L Critically high 46-116 [facility] Comment on above: Performed By: #### C MP ####[facility] Phrbhehfsw1348 [place] [address]DrNeo Smyth ALT [Catalytic activity/Vol] 13 U/L Critically low 14-59 [facility] Comment on above: Performed By: #### C MP ####[facility] Ozqfzavddm1280 [place] [address]DrNeo Smyth Anion gap [Moles/Vol] 8.7 mmol/L Normal [facility] Comment on above: Performed By: #### C MP ####[facility] Loczwvxbtz6892 [place] [address]Dr. Tadeo Smyth AST [Catalytic activity/Vol] 12 U/L Critically low 15-37 [facility] Comment on above: Performed By: #### C MP ####[facility] Azifnhnkkl2004[address] [place], [place] [address]Dr. Tadeo Smyth Bilirubin [Mass/Vol] 0.4 mg/dL Normal 0.2-1.0 [facility] Comment on above: Performed By: #### C MP ####[facility] Hwrweipagf0583[address] [place], [place] [address]Dr. Tadeo Smyth Calcium [Mass/Vol] 8.5 mg/dL Normal 8.5-10.1 [facility] Comment on above: Performed By: #### C MP ####[facility] Tthbnnyrbs485[address] [place], [place] [address]Dr. Tadeo Smyth Chloride [Moles/Vol] 108 mmol/L Critically high 98-107 [facility] Comment on above: Performed By: #### C MP ####[facility] Rokpsxgdqr2188[address] [place], [place] [address]Dr. Tadeo Smyth CO2 [Moles/Vol] 28.0 mmol/L Normal 21.0-32.0 [facility] Comment on above: Performed By: #### C MP ####[facility] Uyyopbztfb8658[address] [place], [place] [address]Dr. Tadeo Smyth Creatinine [Mass/Vol] 0.74 mg/dL Normal 0.55-1.02 [facility] Comment on above: Performed By: #### C MP ####[facility] Ntwlptfyep967[address] [place], [place] [address]Dr. Margtonicole Haja EGFR-AF GREEK >60 Normal >=60 [facility] Comment on above: Performed By: #### C MP ####[facility] Xotnchmusb5533[address] [place], [place] [address]Dr. Tadeo Smyth EGFR-NON AF GREEK >60 Normal >=60 [facility] Comment on above: Performed By: #### C MP ####[facility] Rlzktlczdw4988 [place] [address]Dr. Tadeo Smyth Globulin (S) [Mass/Vol] 3.4 g/dL Normal [facility] Comment on above: Performed By: #### C MP ####[facility] Vytwrjnqey0807 [place] [address]Dr. Tadeo Smyth Glucose [Mass/Vol] 107 mg/dL Critically high 74-106 [facility] Comment on above: Performed By: #### C MP ####[facility] Vgftevsvpo8838[address] [place], [place] [address]Dr. Tadeo Smyth Potassium [Moles/Vol] 3.7 mmol/L Normal 3.5-5.1 [facility] Comment on above: Performed By: #### C MP ####[facility] Hyaooiguuz5747[address] [place], [place] [address]Dr. Tadeo Smyth Protein [Mass/Vol] 6.2 g/dL Critically low 6.4-8.2 [facility] Comment on above: Performed By: #### C MP ####[facility] Cxsrswxhdg7929[address] [place], [place] [address]Dr. Tadeo Smyth Sodium [Moles/Vol] 141 mmol/L Normal 136-145 [facility] Comment on above: Performed By: #### C MP ####[facility] Lhcbetggut3775[address] [place], [place] [address]Dr. Tadeo Smyth Urea nitrogen [Mass/Vol] 7.0 mg/dL Normal 7.0-18.0 [facility] Comment on above: Performed By: #### C MP ####[facility] Yqqwzjhvsz6459[address] [place], [place] [address]Dr. Tadeo Smyth Urea nitrogen/Creatinine [Mass ratio] 9.5 mg/mg Normal [facility] Comment on above: Performed By: #### C MP ####[facility] Rmrqhcjelg11[address] [place], [place] [address]Dr. Tadeo Smyth XR KUB 1 VIEWon 03-29-2022 XR KUB 1 VIEW Normal [facility] CBC AUTO DIFFon 03-28-2022 BASO # 0.0 103/ul Normal 0.0-0.1 [facility] Comment on above: Performed By: #### C BC ####[facility] Emuxpudmsv2876 [place] [address]Dr. Tadeo Smyth Basophils/100 WBC (Bld) 0.7 % Normal 0.2-2.0 [facility] Comment on above: Performed By: #### C BC ####[facility] Vdtciivufi376[address] [place], [place] [address]Dr. Tadeo Smyth EO # 0.2 103/ul Normal 0.0-0.7 [facility] Comment on above: Performed By: #### C BC ####[facility] Kwdnnrxmsi3711[address] [place], [place] [address]Dr. Tadeo Smyth Eosinophils/100 WBC (Bld) 3.3 % Normal 0.9-7.0 [facility] Comment on above: Performed By: #### C BC ####[facility] Wnfboecvju6575[address] [place], [place] [address]Dr. Tadeo Smyth Erythrocyte distribution width (RBC) [Ratio] 13.2 % Normal 11.0-15.0 [facility] Comment on above: Performed By: #### C BC ####[facility] Nqkzxbnnzo[address] [place], [place] [address]Dr. Tadeo Smyth Hematocrit (Bld) [Volume fraction] 34.2 % Critically low 36.0-48.0 [facility] Comment on above: Performed By: #### C BC ####[facility] Eefdgjeuwk2188[address] [place], [place] [address]Dr. Tadeo Smyth Hemoglobin (Bld) [Mass/Vol] 10.8 g/dL Critically low 12.0-16.0 [facility] Comment on above: Performed By: #### C BC ####[facility] Bdnmkfomwr8846[address] [place], [place] [address]Dr. Tadeo Smyth IG # 0.01 10e3/ul Normal 0.00-0.03 [facility] Comment on above: Performed By: #### C BC ####[facility] Iawgebeycd1856[address] [place], [place] [address]Dr. Tadeo Smyth IG % 0.2 % Normal 0.0-0.5 [facility] Comment on above: Performed By: #### C BC ####[facility] Icscsnhuap8177 [place] [address]DrNeo Smyth LYMPH # 1.3 103/ul Normal 1.2-3.8 [facility] Comment on above: Performed By: #### C BC ####[facility] Gzxtgkfjqz6700 [place] [address]Dr. Tadeo Smyth Lymphocytes/100 WBC (Bld) 28.4 % Normal 20.5-60.0 [facility] Comment on above: Performed By: #### C BC ####[facility] Tuqalwbrah3814 [place] [address]DrNeo Smyth MANUAL DIFF REQ NO Normal [facility] Comment on above: Performed By: #### C BC ####[facility] Mdhpqqgkxi2443 [place] [address]Dr. Margotnicole Smyth MCH (RBC) [Entitic mass] 28.3 pg Normal 26.7-34.0 [facility] Comment on above: Performed By: #### C BC ####[facility] Waiyvwohhp2784 [place] [address]Dr. Tadeo Haja MCHC (RBC) [Mass/Vol] 31.6 g/dL Normal 29.9-35.2 [facility] Comment on above: Performed By: #### C BC ####[facility] Pggrzzzofx3885 [place] [address]DrNeo Margotnicole Smyth MCV (RBC) [Entitic vol] 89.5 fL Normal 81.0-99.0 [facility] Comment on above: Performed By: #### C BC ####[facility] Nzthdbcuvi4175 [place] [address]DrNeo Smyth MONO # 0.3 103/ul Normal 0.3-0.8 [facility] Comment on above: Performed By: #### C BC ####[facility] Xmrdtaxfgy7183 [place] [address]DrNeo Smyth Monocytes/100 WBC (Bld) 5.5 % Normal 1.7-12.0 [facility] Comment on above: Performed By: #### C BC ####[facility] Dfldofxyrl1330 [place] [address]Dr. Tadeo Smyth NEUT # 2.8 103/ul Normal 1.4-6.5 [facility] Comment on above: Performed By: #### C BC ####[facility] Taiyksqtuj3772 [place] [address]DrNeo Frostnicole Haja Neutrophils/100 WBC (Bld) 61.9 % Normal 43.0-75.0 [facility] Comment on above: Performed By: #### C BC ####[facility] Fwqpxdtqox[address] [place], [place] [address]DrNeo Smyth Platelet mean volume (Bld) [Entitic vol] 9.1 fL Critically low 9.5-13.5 [facility] Comment on above: Performed By: #### C BC ####[facility] Rabdnwqblv1598[address] [place], [place] [address]Dr. Tadeo Smyth PLT 327 103/ul Normal 150-450 [facility] Comment on above: Performed By: #### C BC ####[facility] Dpbxophout2638[address] [place], [place] [address]DrNeo Smyth RBC 3.82 106/ul Critically low 4.20-5.40 [facility] Comment on above: Performed By: #### C BC ####[facility] Pzzxwlmrqv3719[address] [place], [place] [address]DrNeo Smyth WBC 4.5 103/ul Normal 4.0-11.0 [facility] Comment on above: Performed By: #### C BC ####[facility] Jjtliagafp00[address] [place], [place] [address]DrNeo Smyth POINT OF CARE GLUCOSEon 07-2 Glucose [Mass/Vol] 84 mg/dL Normal 74-106 [facility] Comment on above: Performed By: #### P OCGLUC ####[facility] Dupgcrufma7999[address] [place], [place] [address]Dr. Tadeo Smyth PROF 14(COMP METB)on 022 Albumin [Mass/Vol] 2.9 g/dL Critically low 3.4-5.0 Th e [facility] Comment on above: Performed By: #### C MP ####[facility] [address] [place] [address]Dr. Tadeo Smyth Albumin/Globulin [Mass ratio] 0.9 {ratio} Normal [facility] Comment on above: Performed By: #### C MP ####[facility] Cvqotifpgx[address] [place], [place] [address]Dr. Tadeo Smyth ALP [Catalytic activity/Vol] 119 U/L Critically high 46-116 [facility] Comment on above: Performed By: #### C MP ####[facility] [id number] [place], [place] [address]Dr. Tadeo Smyth ALT [Catalytic activity/Vol] 15 U/L Normal 14-59 [facility] Comment on above: Performed By: #### C MP ####[facility] Ptpsxzyqda00[address] [place], [place] [address]Dr. Tadeo Smyth Anion gap [Moles/Vol] 7.9 mmol/L Normal [facility] Comment on above: Performed By: #### C MP ####[facility] Lvdkzkuzod[address] [place], [place] [address]Dr. Tadeo Smyth AST [Catalytic activity/Vol] 11 U/L Critically low 15-37 [facility] Comment on above: Performed By: #### C MP ####[facility] Wvsodvvcxv34[address] [place], [place] [address]Dr. Tadeo Smyth Bilirubin [Mass/Vol] 0.4 mg/dL Normal 0.2-1.0 [facility] Comment on above: Performed By: #### C MP ####[facility] Mngpvtvtil[address] [place], [place] [address]Dr. Tadeo Smyth Calcium [Mass/Vol] 8.7 mg/dL Normal 8.5-10.1 [facility] Comment on above: Performed By: #### C MP ####[facility] Blohzmysyy94[address] [place], [place] [address]Dr. Tadeo Smyth Chloride [Moles/Vol] 109 mmol/L Critically high 98-107 [facility] Comment on above: Performed By: #### C MP ####[facility] [address]vdu[address]ng[address] [place] [address]Dr. Tadeo Smyth CO2 [Moles/Vol] 27.9 mmol/L Normal 21.0-32.0 [facility] Comment on above: Performed By: #### C MP ####[facility] Ngycmhcyso[address] [place] [address]Dr. Tadeo Smyth Creatinine [Mass/Vol] 0.75 mg/dL Normal 0.55-1.02 [facility] Comment on above: Performed By: #### C MP ####[facility] Gsbghupzfg39[address] [place], [place] [address]Dr. Tadeo Smyth EGFR-AF GREEK >60 Normal >=60 [facility] Comment on above: Performed By: #### C MP ####[facility] Wmfpyzmsyx62[address] [place], [place] [address]Dr. Tadeo Smyth EGFR-NON AF GREEK >60 Normal >=60 [facility] Comment on above: Performed By: #### C MP ####[facility] Qu[address]pwha[address] [place] [address]Dr. Tadeo Smyth Globulin (S) [Mass/Vol] 3.3 g/dL Normal [facility] Comment on above: Performed By: #### C MP ####[facility] Otuyxwzprr99[address] [place] [address]Dr. Tadeo Haja Glucose [Mass/Vol] 95 mg/dL Normal 74-106 [facility] Comment on above: Performed By: #### C MP ####[facility] Jtwezkgbju[address] [place] [address]Dr. Tadeo Smyth Potassium [Moles/Vol] 3.8 mmol/L Normal 3.5-5.1 [facility] Comment on above: Performed By: #### C MP ####[facility] Hnwqynhief[address] [place] [address]Dr. Tadeo Haja Protein [Mass/Vol] 6.2 g/dL Critically low 6.4-8.2 Th e [facility] Comment on above: Performed By: #### C MP ####[facility] Ovzkymugkj6[address] [place] [address]Dr. Tadeo Smyth Sodium [Moles/Vol] 141 mmol/L Normal 136-145 [facility] Comment on above: Performed By: #### C MP ####[facility] Ohgsjiwcib6[address] [place], [place] [address]Dr. Tadeo Smyth Urea nitrogen [Mass/Vol] 8.0 mg/dL Normal 7.0-18.0 [facility] Comment on above: Performed By: #### C MP ####[facility] Vnosijffed1903[address] [place], [place] [address]Dr. Tadeo Smyth Urea nitrogen/Creatinine [Mass ratio] 10.7 mg/mg Normal [facility] Comment on above: Performed By: #### C MP ####[facility] Wpwyxwwzfk5[address] [place], [place] [address]Dr. Tadeo Smyth UA (CLEAN/CATCH) BLEACHER [place] PULP/MICRO I F IND.on 03-28-2022 Bilirubin Ql (U) Negative Normal NEGATIVE [facility] Comment on above: Performed By: #### U MARE ICRO ####[facility] Pkpcamnzsi4097[address] [place], [place] [address]Dr. Tadeo Smyth Clarity (U) SL CLOUDY Abnormal CLEAR [facility] Comment on above: Performed By: #### U MARE UMICRO ####[facility] Dxmiojwktm27[address] [place], [place] [address]Dr. Tadeo Smyth Color (U) LT. YELLOW Normal YELLOW [facility] Comment on above: Performed By: #### U MARE UMICRO ####[facility] Gyttamriqz7425[address] [place], [place] [address]Dr. Tadeo Smyth Glucose Ql (U) Negative Normal NEGATIVE [facility] Comment on above: Performed By: #### U ACSBLANE UMICRO ####[facility] Ilygeezuxi[address] [place], [place] [address]Dr. Tadeo Smyth Hemoglobin Ql (U) TRACE-INTACT Abnormal NEGATIVE [facility] Comment on above: Performed By: #### U ACSBLANE UMICRO ####[facility] Mcfyewccxi216[address] [place] [address]Dr. Tadeo Smyth Ketones Ql (U) TRACE Abnormal NEGATIVE [facility] Comment on above: Performed By: #### U ACSBLANE UMICRO ####[facility] Llpvsjrytn3201 [place] [address]Dr. Tadeo Smyth LEUKOCYTES Negative Normal NEGATIVE [facility] Comment on above: Performed By: #### U ACSBLANE UMICRO ####[facility] Kiupodwzql4895 [place] [address]Dr. Tadeo Smyth Nitrite Ql (U) Negative Normal NEGATIVE [facility] Comment on above: Performed By: #### U ACSBLANE UMICRO ####[facility] Zmzbiwyrkx4650 [place] [address]Dr. Tadeo Smyth pH (U) 6.5 [pH] Normal 5-9 [facility] Comment on above: Performed By: #### U MARE UMICRO ####[facility] Jczxupvfnz[address] [place], [place] [address]Dr. Tadeo Smyth SPEC GRAVITY 1.015 Normal 1.005-<=1.0 25 [facility] Comment on above: Performed By: #### Rosita GARVEY UMICRO ####[facility] Gebaemrnec37[address] [place] [address]Dr. Tadeo Smyth UA PROTEIN Negative Normal NEGATIVE/ TRACE The [facility] Comment on above: Performed By: #### U MARE UMICRO ####[facility] Znhirugcwo7632[address] [place], [place] [address]Dr. Tadeo Smyth UR MICRO IND INDICATED Normal [facility] Comment on above: Performed By: #### U MARE UMICRO ####[facility] Vgksghiecx[address] [place], [place] [address]Dr. Tadeo Smyth Urobilinogen Qn (U) 0.2 {Benito'U}/dL Normal 0.2 - 1. 0 [facility] Comment on above: Performed By: #### U ACSBLANE UMICRO ####[facility] Plqrfunlfz2196 [place] [address]Dr. Tadeo Smyth URINE MICROSCOPIC ONLYon BACTERIA MODERATE Abnormal NONE SEEN [facility] Comment on above: Performed By: #### U MARE UMICRO ####[facility] Cohacixzoz[address] [place] [address]Dr. Tadeo Smyth Bacteria identified Cx Nom (U) INDICATED Normal [facility] Comment on above: Performed By: #### U MARE UMICRO ####[facility] Twgwizmyvd4678 [place] [address]Dr. Tadeo Smyth CAST NONE SEEN Normal NONE SEEN [facility] Comment on above: Performed By: #### U MARE ICRO ####[facility] Trtqbnovxm5519 [place] [address]Dr. Tadeo Smyth Crystals LM Nom (Urine sed) NONE SEEN Normal NONE SEEN [facility] Comment on above: Performed By: #### U MARE ICRO ####[facility] Jbqvppzppw9236 [place] [address]Dr. Tadeo Smyth Epithelial cells LM Ql (Urine sed) RARE Normal NONE SEEN /RARE [facility] Comment on above: Performed By: #### U MARE ICRO ####[facility] Yhgwzcgufj6[address] [place] [address]Dr. Tadeo Smyth MUCOUS NONE SEEN Normal NONE SEEN [facility] Comment on above: Performed By: #### U MARE ICRO ####[facility] Ojgdzelcdr3189 [place] [address]Dr. Tadeo Smyth RBC NONE SEEN Abnormal 0-2 [facility] Comment on above: Performed By: #### U MARE ICRO ####[facility] Ztkkdspibd[address] [place], [place] [address]Dr. Tadeo Smyth WBC 2-5 Abnormal NONE SEEN The [facility] Comment on above: Performed By: #### U MARE UMICRO ####[facility] Bkcbgbqlmv64[address] [place], [place] [address]Dr. Tadeo Smyth XR ABD FLAT UP_PA Kasey 03-28 XR ABD FLAT UP_PA CH Normal [facility] CBC AUTO DIFFon 03-27-2022 BASO # 0.0 103/ul Normal 0.0-0.1 [facility] Comment on above: Performed By: #### C BC ####[facility] Eczqeksxpd30[address] [place], [place] [address]Dr. Tadeo Smyth Basophils/100 WBC (Bld) 0.5 % Normal 0.2-2.0 [facility] Comment on above: Performed By: #### C BC ####[facility] Zjsutedjpi4[address] [place], [place] [address]Dr. Tadeo Smyth EO # 0.2 103/ul Normal 0.0-0.7 [facility] Comment on above: Performed By: #### C BC ####[facility] Rfllpaldjs[address] [place], [place] [address]Dr. Tadeo Smyth Eosinophils/100 WBC (Bld) 3.2 % Normal 0.9-7.0 [facility] Comment on above: Performed By: #### C BC ####[facility] Wvarbxzedr[address] [place], [place] [address]Dr. Tadeo Smyth Erythrocyte distribution width (RBC) [Ratio] 13.1 % Normal 11.0-15.0 [facility] Comment on above: Performed By: #### C BC ####[facility] Ngphoowbmw2512[address] [place], [place] [address]Dr. Tadeo Smyth Hematocrit (Bld) [Volume fraction] 34.8 % Critically low 36.0-48.0 [facility] Comment on above: Performed By: #### C BC ####[facility] Kzurzslhsq6[address] [place], [place] [address]Dr. Tadeo Smyth Hemoglobin (Bld) [Mass/Vol] 11.3 g/dL Critically low 12.0-16.0 [facility] Comment on above: Performed By: #### C BC ####[facility] Ekpqumagtn4348[address] [place], [place] [address]Dr. Tadeo Smyth IG # 0.01 10e3/ul Normal 0.00-0.03 [facility] Comment on above: Performed By: #### C BC ####[facility] Kqntiewtmw0952 [place] [address]Dr. Tadeo Smyth IG % 0.2 % Normal 0.0-0.5 [facility] Comment on above: Performed By: #### C BC ####[facility] Attrqczits6826 [place] [address]Dr. Tadeo Smyth LYMPH # 1.6 103/ul Normal 1.2-3.8 [facility] Comment on above: Performed By: #### C BC ####[facility] Yyngnaukcq86[address] [place], [place] [address]Dr. Tadeo Haja Lymphocytes/100 WBC (Bld) 29.1 % Normal 20.5-60.0 [facility] Comment on above: Performed By: #### C BC ####[facility] Ikazviuwyi509[address] [place], [place] [address]Dr. Tadeo Smyth MANUAL DIFF REQ NO Normal [facility] Comment on above: Performed By: #### C BC ####[facility] Drruranvjm0835[address] [place], [place] [address]Dr. Tadeo Smyth MCH (RBC) [Entitic mass] 29.1 pg Normal 26.7-34.0 [facility] Comment on above: Performed By: #### C BC ####[facility] Pcfrfkbcrc[address] [place], [place] [address]Dr. Tadeo Smyth MCHC (RBC) [Mass/Vol] 32.5 g/dL Normal 29.9-35.2 [facility] Comment on above: Performed By: #### C BC ####[facility] Sgbknbavhf99[address] [place], [place] [address]Dr. Tadeo Smyth MCV (RBC) [Entitic vol] 89.7 fL Normal 81.0-99.0 [facility] Comment on above: Performed By: #### C BC ####[facility] Kpgmphjonz6[address] [place], [place] [address]Dr. Tadeo Haja MONO # 0.3 103/ul Normal 0.3-0.8 [facility] Comment on above: Performed By: #### C BC ####[facility] Henbjttjup8[address] [place] [address]Dr. Tadeo Smyth Monocytes/100 WBC (Bld) 5.7 % Normal 1.7-12.0 [facility] Comment on above: Performed By: #### C BC ####[facility] Rwo[address]qtke[address] [place] [address]Dr. Tadeo Smyth NEUT # 3.5 103/ul Normal 1.4-6.5 [facility] Comment on above: Performed By: #### C BC ####[facility] Qnygdmhzow4743 [place] [address]Dr. Tadeo Smyth Neutrophils/100 WBC (Bld) 61.3 % Normal 43.0-75.0 [facility] Comment on above: Performed By: #### C BC ####[facility] Xplxkciwaj2903 [place] [address]Dr. Tadeo Smyth Platelet mean volume (Bld) [Entitic vol] 9.1 fL Critically low 9.5-13.5 [facility] Comment on above: Performed By: #### C BC ####[facility] Obswzkkjus4380 [place] [address]Dr. Tadeo Smyth PLT 355 103/ul Normal 150-450 [facility] Comment on above: Performed By: #### C BC ####[facility] Pqgeitmzlp2780 [place] [address]Dr. Tadeo Smyth RBC 3.88 106/ul Critically low 4.20-5.40 [facility] Comment on above: Performed By: #### C BC ####[facility] Cbpvelkoel[address] [place], [place] [id number]. Tadeo Smyth WBC 5.6 103/ul Normal 4.0-11.0 [facility] Comment on above: Performed By: #### C BC ####[facility] Slsylbihnd6[address] [place] [address]Dr. Tadeo Smyth CT ABD/PELV W CONon 03-27-20 CT ABD/PELV W CON Normal [facility] CT ABD/PELVIS WO CONon 03-27 CT ABD/PELVIS WO CON Normal [facility] Covid-19 PCR (CVDTB)on 03-06 SARS-CoV-2 (COVID-19) RNA CHEN+probe Ql (Unsp spec) Not detected Normal NOT DETECTED [facility] Comment on above: Result Comment: When diagnostic testing is negative, the possibility of a false negative should be considered inthe context of a patient's recent exposures and the presence of clinical signs and symptomsconsistent with SARS-CoV-2.This test is not yet approved or cleared by the [place] FDA. When there are no FDA-approved or cleared tests available, and other criteria are met, FDA can make tests available under an emergency access mechanism called an Emergency Use Authorization (EUA). The EUA for this test is supported by the [place] of Health and Human Service's declaration that circumstances exist to justify the emergency use of in vitro diagnostics for the detection and/or diagnosis of the virus that causes COVID-19. This EUA will remain in effect for the duration of the COVID-19 declaration justifying emergency of IVDs, unless it is terminated or revoked by the FDA (after which the test may no longer be used). Performed By: #### C VDTB ####[facility] Uusjyebdly[address] [place], [place] [address]Dr. Tadeo Smyth ER URINE PROFILEon Bilirubin Ql (U) Negative Normal NEGATIVE [facility] Comment on above: Performed By: #### E RUR, PREGU ####[facility] Vbwvpdtkcs[address] [place], [place] [address]Dr. Tadeo Smyth Clarity (U) CLEAR Normal CLEAR [facility] Comment on above: Performed By: #### E RUR, PREGU ####[facility] Dymiljwrtr28[address] [place], [place] [address]Dr. Tadeo Smyth Color (U) LT. YELLOW Normal YELLOW [facility] Comment on above: Performed By: #### E RUR, PREGU ####[facility] Izxwdhmlot3883[address] [place], [place] [address]Dr. Tadeo Smyth ERUAHD A micrscopic examina tion will be performed if indicated. Normal [facility] Comment on above: Performed By: #### Matthew RUR, PREGU ####[facility] Kabfwnqxvb85[address] [place], [place] [address]Dr. Tadeo Smyth Glucose Ql (U) Negative Normal NEGATIVE [facility] Comment on above: Performed By: #### E RUR, PREGU ####[facility] Meqfcfoohz639[address] [place], [place] [address]Dr. Tdaeo Smyth Hemoglobin Ql (U) SMALL Abnormal NEGATIVE [facility] Comment on above: Performed By: #### E RUR, PREGU ####[facility] Dlpcacwkir7[address] [place], [place] [address]Dr. Tadeo Smyth Ketones Ql (U) TRACE Abnormal NEGATIVE [facility] Comment on above: Performed By: #### Matthew FRANCISCO, PREGU ####[facility] Sufwnbmzho8584[address] [place], [place] [address]Dr. Tadeo Smyth LEUKOCYTES Negative Normal NEGATIVE [facility] Comment on above: Performed By: #### Matthew FRANCISCO, PREGU ####[facility] Ngfchnyziw924[address] [place], [place] [address]Dr. Tadeo Smyth Nitrite Ql (U) Negative Normal NEGATIVE [facility] Comment on above: Performed By: #### Matthew FRANCISCO, PREGU ####[facility] Uipqpkvcxx8[address] [place], [place] [address]Dr. Tadeo Smyth pH (U) 6.0 [pH] Normal 5-9 [facility] Comment on above: Performed By: #### Matthew FRANCISCO, PREGU ####[facility] [address]qcrxvjkkp84[address] [place], [place] [address]Dr. Tadeo Smyth SPEC GRAVITY >=1.030 Abnormal 1.005-<=1.0 25 [facility] Comment on above: Performed By: #### Matthew FRANCISCO, PREGU ####[facility] Nhaopjeshy[address] [place], [place] [address]Dr. Tadeo Smyth UA PROTEIN Negative Normal NEGATIVE/ TRACE [facility] Comment on above: Performed By: #### Matthew BURLESONR, PREGU ####[facility] Mobqlhwcde59[address] [place], [place] [address]Dr. Tadeo Smyth UR MICRO IND NOT INDICATED Normal [facility] Comment on above: Performed By: #### E RUR, PREGU ####[facility] Fysqrtaaxi5[address] [place] [address]Dr. Tadeo Smyth Urobilinogen Qn (U) 0.2 {Benito'U}/dL Normal 0.2 - 1. 0 [facility] Comment on above: Performed By: #### E RUR, PREGU ####[facility] Jcybybcbod[address] [place] [address]Dr. Tadeo Smyth LIPASEon 03-27-2022 Lipase [Catalytic activity/Vol] 126.0 U/L Normal 73.0-393.0 [facility] Comment on above: Performed By: #### L IPA, CMP ####[facility] Vuctanarvq8[address] [place], [place] [address]Dr. Margotnicole Smyth URon 03-27-2022 , QUAL Negative Normal NEGATIVE [facility] Comment on above: Performed By: #### E RUR, PREGU ####[facility] Itmljpfxjk[address] [place], [place] [address]Dr. Tadeo Smyth PROF 14(COMP METB)on 022 Albumin [Mass/Vol] 3.6 g/dL Normal 3.4-5.0 [facility] Comment on above: Performed By: #### L IPA, CMP ####[facility] Uomthwrzwc[address] [place], [place] [address]Dr. Tadeo Smyth Albumin/Globulin [Mass ratio] 1.1 {ratio} Normal [facility] Comment on above: Performed By: #### L IPA, CMP ####[facility] Bnnpkzrndv044[address] [place] [address]Dr. Tadeo Smyth ALP [Catalytic activity/Vol] 139 U/L Critically high 46-116 [facility] Comment on above: Performed By: #### L IPA, CMP ####[facility] Qpflhmwwtl[address] [place] [address]Dr. Tadeo Smyth ALT [Catalytic activity/Vol] 18 U/L Normal 14-59 [facility] Comment on above: Performed By: #### L IPA, CMP ####[facility] Izqjqsmnju[address] [place], [place] [address]Dr. Tadeo Smyth Anion gap [Moles/Vol] 10.7 mmol/L Normal Th e [facility] Comment on above: Performed By: #### L IPA, CMP ####[facility] Zshlzwnadj125[address] [place], [place] [address]Dr. Tadeo Smyth AST [Catalytic activity/Vol] 11 U/L Critically low 15-37 [facility] Comment on above: Performed By: #### L IPA, CMP ####[facility] Kbayuenvzs[address] [place], [place] [address]Dr. Tadeo Smyth Bilirubin [Mass/Vol] 0.2 mg/dL Normal 0.2-1.0 [facility] Comment on above: Performed By: #### L IPA, CMP ####[facility] Lpcabvehkr89[address] [place], [place] [address]Dr. Tadeo Smyth Calcium [Mass/Vol] 9.0 mg/dL Normal 8.5-10.1 [facility] Comment on above: Performed By: #### L IPA, CMP ####[facility] Kvykaexjyw0[address] [place], [place] [address]Dr. Tadeo Smyth Chloride [Moles/Vol] 106 mmol/L Normal 98-107 [facility] Comment on above: Performed By: #### L IPA, CMP ####[facility] Phpubtdcxe037[address] [place], [place] [address]Dr. Tadeo Smyth CO2 [Moles/Vol] 26.9 mmol/L Normal 21.0-32.0 [facility] Comment on above: Performed By: #### L IPA, CMP ####[facility] Iujexrvuar[address] [place], [place] [address]Dr. Tadeo Smyth Creatinine [Mass/Vol] 0.84 mg/dL Normal 0.55-1.02 [facility] Comment on above: Performed By: #### L IPA, CMP ####[facility] Zsipstxndr[address] [place], [place] [address]Dr. Tadeo Smyth EGFR-AF GREEK >60 Normal >=60 [facility] Comment on above: Performed By: #### L IPA, CMP ####[facility] Yptckisuxh76[address] [place] [address]Dr. Tadeo Smyth EGFR-NON AF GREEK >60 Normal >=60 [facility] Comment on above: Performed By: #### L IPA, CMP ####[facility] Pqhpxhyxys73[address] [place] [address]Dr. Tadeo Smyth Globulin (S) [Mass/Vol] 3.4 g/dL Normal [facility] Comment on above: Performed By: #### L IPA, CMP ####[facility] [address]kxxrckxdr[address] [place], [place] [address]Dr. Tadeo Smyth Glucose [Mass/Vol] 96 mg/dL Normal 74-106 [facility] Comment on above: Performed By: #### L IPA, CMP ####[facility] Tcqfxidzif94[address] [address] [place], [place] [address]Dr. Tadeo Smyth Potassium [Moles/Vol] 3.6 mmol/L Normal 3.5-5.1 [facility] Comment on above: Performed By: #### L IPA, CMP ####[facility] N[address] [place], [place] [address]Dr. Tadeo Smyth Protein [Mass/Vol] 7.0 g/dL Normal 6.4-8.2 [facility] Comment on above: Performed By: #### L IPA, CMP ####[facility] [address]of[address] [place], [place] [address]Dr. Tadeo Smyth Sodium [Moles/Vol] 140 mmol/L Normal 136-145 [facility] Comment on above: Performed By: #### L IPA, CMP ####[facility] K[address] [place], [place] [address]Dr. Tadeo Smyth Urea nitrogen [Mass/Vol] 23.0 mg/dL Critically high 7.0-18.0 [facility] Comment on above: Performed By: #### L IPA, CMP ####[facility] P[address]fr[address] [place], [place] [address]Dr. Tadeo Smyth Urea nitrogen/Creatinine [Mass ratio] 27.4 mg/mg Normal [facility] Comment on above: Performed By: #### L IPA, CMP ####[facility] [address] [place] [address]Dr. Tadeo Smyth GROUP A STREP CULTUREon S. pyogenes Ag Ql (Unsp spec) Normal [facility] Comment on above: Performed By: #### G RASTCX, SSCRN ####[facility] Giegjsddcx[address] [place], [place] [address]Dr. Tadeo Smyth AMYLASEon 02-02-2022 Amylase [Catalytic activity/Vol] 37 U/L Normal 25-115 [facility] Comment on above: Performed By: #### C MP, VIJI, LIPA ####[facility] N[address]of[address]is[address] [place], [place] [address]Dr. Tadeo Smyth CBC AUTO DIFFon 02-02-2022 BASO # 0.0 103/ul Normal 0.0-0.1 [facility] Comment on above: Performed By: #### C BC ####[facility] Fc[address]su[address] [place], [place] [address]Dr. Tadeo Haja Basophils/100 WBC (Bld) 0.2 % Normal 0.2-2.0 [facility] Comment on above: Performed By: #### C BC ####[facility] [address] [place], [place] [address]Dr. Tadeo Smyth EO # 0.0 103/ul Normal 0.0-0.7 [facility] Comment on above: Performed By: #### C BC ####[facility] V[address] [place], [place] [address]Dr. Tadeo Smyth Eosinophils/100 WBC (Bld) 0.2 % Critically low 0.9-7.0 [facility] Comment on above: Performed By: #### C BC ####[facility] [address] [place], [place] [address]Dr. Tadeo Smyth Erythrocyte distribution width (RBC) [Ratio] 13.4 % Normal 11.0-15.0 [facility] Comment on above: Performed By: #### C BC ####[facility] Gh[address] [place], [place] [id number]. Tadeo Smyth Hematocrit (Bld) [Volume fraction] 36.8 % Normal 36.0-48.0 [facility] Comment on above: Performed By: #### C BC ####[facility] [address] [place] [address]Dr. Tadeo Smyth Hemoglobin (Bld) [Mass/Vol] 11.6 g/dL Critically low 12.0-16.0 [facility] Comment on above: Performed By: #### C BC ####[facility] [address] [place] [address]Dr. Tadeo Haja IG # 0.08 10e3/ul Critically high 0.00-0.03 [facility] Comment on above: Performed By: #### C BC ####[facility] [address] [place] [address]Dr. Margotnicole Smyth IG % 0.6 % Critically high 0.0-0.5 [facility] Comment on above: Performed By: #### C BC ####[facility] [address] [place] [address]DrNeo Tadeo Haja LYMPH # 0.9 103/ul Critically low 1.2-3.8 [facility] Comment on above: Performed By: #### C BC ####[facility] [address] [place] [address]DrNeo Tadeo Haja Lymphocytes/100 WBC (Bld) 6.9 % Critically low 20.5-60.0 [facility] Comment on above: Performed By: #### C BC ####[facility] [address] [place] [address]DrNeo Margotnicole Smyth MANUAL DIFF REQ NO Normal [facility] Comment on above: Performed By: #### C BC ####[facility] [address] [place] [address]DrNeo Tadeo Haja MCH (RBC) [Entitic mass] 28.9 pg Normal 26.7-34.0 [facility] Comment on above: Performed By: #### C BC ####[facility] He[address] [place], [place] [address]DrNeo Tadeo Smyth MCHC (RBC) [Mass/Vol] 31.5 g/dL Normal 29.9-35.2 [facility] Comment on above: Performed By: #### C BC ####[facility] [address] [place] [id number]. Tadeo Smyth MCV (RBC) [Entitic vol] 91.8 fL Normal 81.0-99.0 [facility] Comment on above: Performed By: #### C BC ####[facility] [address] [place] [id number]. Tadeo Smyth MONO # 0.9 103/ul Critically high 0.3-0.8 [facility] Comment on above: Performed By: #### C BC ####[facility] [address] [place] [address]Dr. Tadeo Haja Monocytes/100 WBC (Bld) 6.9 % Normal 1.7-12.0 [facility] Comment on above: Performed By: #### C BC ####[facility] [address] [place] [id number]. Tadeo Smyth NEUT # 11.6 103/ul Critically high 1.4-6.5 [facility] Comment on above: Performed By: #### C BC ####[facility] [address] [place] [address]Dr. Tadeo Smyth Neutrophils/100 WBC (Bld) 85.2 % Critically high 43.0-75.0 [facility] Comment on above: Performed By: #### C BC ####[facility] [address] [place] [id number]. Tadeo Smyth Platelet mean volume (Bld) [Entitic vol] 8.9 fL Critically low 9.5-13.5 [facility] Comment on above: Performed By: #### C BC ####[facility] [address] [place] [id number]. Tadeo Haja PLT 331 103/ul Normal 150-450 [facility] Comment on above: Performed By: #### C BC ####[facility] [address] [place] [address]Dr. Tadeo Smyth RBC 4.01 106/ul Critically low 4.20-5.40 [facility] Comment on above: Performed By: #### C BC ####[facility] [address] [place] [address]Dr. Tadeo Smyth WBC 13.7 103/ul Critically high 4.0-11.0 [facility] Comment on above: Performed By: #### C BC ####[facility] [address] [place] [address]Dr. Tadeo [facility] Covid-19 PCR (CVDTBH)on 01-05 SARS-CoV-2 (COVID-19) RNA CHEN+probe Ql (Unsp spec) Not detected Normal NOT DETECTED [facility] Comment on above: Result Comment: When diagnostic testing is negative, the possibility of a false negative should be considered inthe context of a patient's recent exposures and the presence of clinical signs and symptomsconsistent with SARS-CoV-2.This test is not yet approved or cleared by the [place] FDA. When there are no FDA-approved or cleared tests available, and other criteria are met, FDA can make tests available under an emergency access mechanism called an Emergency Use Authorization (EUA). The EUA for this test is supported by the [place] of Health and Human Service's declaration that circumstances exist to justify the emergency use of in vitro diagnostics for the detection and/or diagnosis of the virus that causes COVID-19. This EUA will remain in effect for the duration of the COVID-19 declaration justifying emergency of IVDs, unless it is terminated or revoked by the FDA (after which the test may no longer be used). Performed By: #### C VDTBH ####[facility] [address] [place] [id number]. Tadeo Smyth LIPASEon 02-02-2022 Lipase [Catalytic activity/Vol] 33.0 U/L Critically low 73.0-393.0 [facility] Comment on above: Performed By: #### C MP, VIJI, LIPA ####[facility] [address] [place] [id number]. Tadeo Smyth MONOon 02-02-2022 Monocytes (Bld) [#/Vol] Negative Normal NEGATIVE [facility] Comment on above: Performed By: #### M JESSICA ####[facility] [address] [place] [address]Dr. Tadeo Smyth PROF 14(COMP METB)on 022 Albumin [Mass/Vol] 3.1 g/dL Critically low 3.4-5.0 [facility] Comment on above: Performed By: #### C MP, VIJI, LIPA ####[facility] Pf[address] [place] [address]Dr. Tadeo Smyth Albumin/Globulin [Mass ratio] 0.9 {ratio} Normal [facility] Comment on above: Performed By: #### C MP, VIJI, LIPA ####[facility] [address]ktc[address] [place] [address]Dr. Tadeo Smyth ALP [Catalytic activity/Vol] 131 U/L Critically high 46-116 [facility] Comment on above: Performed By: #### C MP, VIJI, LIPA ####[facility] Eh[address]le[address]ks[address] [place] [address]Dr. Tadeo Smyth ALT [Catalytic activity/Vol] 25 U/L Normal 14-59 [facility] Comment on above: Performed By: #### C MP, VIJI, LIPA ####[facility] [address]ct[address] [place] [address]Dr. Tadeo Smyth Anion gap [Moles/Vol] 10.0 mmol/L Normal [facility] Comment on above: Performed By: #### C MP, VIJI, LIPA ####[facility] F[address] [place] [address]Dr. Tadeo Smyth AST [Catalytic activity/Vol] 19 U/L Normal 15-37 [facility] Comment on above: Performed By: #### C MP, VIJI, LIPA ####[facility] [address]sonpxx[address] [place] [address]Dr. Tadeo Smyth Bilirubin [Mass/Vol] 0.6 mg/dL Normal 0.2-1.0 [facility] Comment on above: Performed By: #### C MP, VIJI, LIPA ####[facility] [address] [place] [address]Dr. Tadeo Smyth Calcium [Mass/Vol] 8.2 mg/dL Critically low 8.5-10.1 [facility] Comment on above: Performed By: #### C MP, VIJI, LIPA ####[facility] N[address] [place], [place] [address]Dr. Tadeo Smyth Chloride [Moles/Vol] 106 mmol/L Normal 98-107 [facility] Comment on above: Performed By: #### C MP, VIJI, LIPA ####[facility] [address] [place], [place] [address]Dr. Tadeo Smyth CO2 [Moles/Vol] 25.5 mmol/L Normal 21.0-32.0 [facility] Comment on above: Performed By: #### C MP, VIJI, LIPA ####[facility] Sh[address] [place], [place] [address]Dr. Tadeo Smyth Creatinine [Mass/Vol] 0.78 mg/dL Normal 0.55-1.02 [facility] Comment on above: Performed By: #### C MP, VIJI, LIPA ####[facility] Y[address]ssrrjac[address] [place], [place] [address]Dr. Tadeo Smyth EGFR-AF GREEK >60 Normal >=60 [facility] Comment on above: Performed By: #### C MP, VIJI, LIPA ####[facility] C[address] [place], [place] [address]Dr. Tadeo Smyth EGFR-NON AF GREEK >60 Normal >=60 [facility] Comment on above: Performed By: #### C MP, VIJI, LIPA ####[facility] Z[address]irbwlgt[address] [place], [place] [address]Dr. Tadeo Smyth Globulin (S) [Mass/Vol] 3.6 g/dL Normal [facility] Comment on above: Performed By: #### C MP, VIJI, LIPA ####[facility] [address]th[address]ohha[address] [place], [place] [address]Dr. Tadeo Smyth Glucose [Mass/Vol] 110 mg/dL Critically high 74-106 [facility] Comment on above: Performed By: #### C VIJI GARCIA, LIPA ####[facility] [address]pv[address] [place] [address]Dr. Tadeo Smyth Potassium [Moles/Vol] 3.5 mmol/L Normal 3.5-5.1 [facility] Comment on above: Performed By: #### C VIJI GARCIA, LIPA ####[facility] [address]lm[address] [place] [address]Dr. Tadeo Smyth Protein [Mass/Vol] 6.7 g/dL Normal 6.4-8.2 [facility] Comment on above: Performed By: #### C JOSE VIJI, LIPA ####[facility] [address]bf[address] [place] [address]Dr. Tadeo Smyth Sodium [Moles/Vol] 138 mmol/L Normal 136-145 [facility] Comment on above: Performed By: #### C VIJI GARCIA, LIPA ####[facility] [address] [place] [address]Dr. Tadeo Smyth Urea nitrogen [Mass/Vol] 11.0 mg/dL Normal 7.0-18.0 [facility] Comment on above: Performed By: #### C JOSE VIJI, LIPA ####[facility] [address] [place] [address]Dr. Tadeo Smyth Urea nitrogen/Creatinine [Mass ratio] 14.1 mg/mg Normal [facility] Comment on above: Performed By: #### C JOSE VIJI, LIPA ####[facility] [address]xf[address]ucid[address] [place] [address]Dr. Tadeo Smyth STREPT SCREENon 02-02-2022 STREP SCREEN A Negative Normal NEGATIVE [facility] Comment on above: Performed By: #### G RASTCX, SSCRN ####[facility] [address]uf[address] [place] [address]Dr. Tadeo Smyth BASIC METABOLIC PANELon 08-05 Calcium [Mass/Vol] 8.4 mg/dL Low 8.6-10.3 [facility] Comment on above: Order Comment: No: D o not add to previous draw Performed By: #### 3 400, 34216 #### [facility] [address] [place] [address], [place] Chloride [Moles/Vol] 108 mmol/L High 98-107 [facility] Comment on above: Order Comment: No: D o not add to previous draw Performed By: #### 3 6900, 02924 #### [facility] [address] [place] [address], [place] CO2 [Moles/Vol] 26 mmol/L Normal 21-31 [facility] Comment on above: Order Comment: No: D o not add to previous draw Performed By: #### 3 945, 96041 #### [facility] [address] [place] [address], [place] Creatinine [Mass/Vol] 0.79 mg/dL Normal 0.60-1.20 [facility] Comment on above: Order Comment: No: D o not add to previous draw Performed By: #### 3 6900, 02080 #### [facility] [address] [place] [address], [place] GFR/1.73 sq M predicted among blacks MDRD (S/P/Bld) [Vol rate/Area] mL/min/{1.73_m2} Normal >60 [facility] Comment on above: Order Comment: No: D o not add to previous draw Performed By: #### 3 033, 43578 #### [facility] [address] [place] [address], [place] GFR/1.73 sq M predicted among non-blacks MDRD (S/P/Bld) [Vol rate/Area] mL/min/{1.73_m2} Normal >60 [facility] Comment on above: Order Comment: No: D o not add to previous draw Performed By: #### 3 325, 03219 #### [facility] [address] [place] [id number], [place] Glucose [Mass/Vol] 98 mg/dL Normal 70-100 [facility] Comment on above: Order Comment: No: D o not add to previous draw Performed By: #### 3 216, 57892 #### [facility] [address] [place] [address], [place] Potassium [Moles/Vol] 3.5 mmol/L Normal 3.5-5.1 [facility] Comment on above: Order Comment: No: D o not add to previous draw Performed By: #### 3 944, 16693 #### [facility] [address] [place] [address], [place] Sodium [Moles/Vol] 139 mmol/L Normal 136-145 [facility] Comment on above: Order Comment: No: D o not add to previous draw Performed By: #### 3 110, 21490 #### [facility] [address] [place] [address], [place] Urea nitrogen [Mass/Vol] 11 mg/dL Normal 7-25 [facility] Comment on above: Order Comment: No: D o not add to previous draw Performed By: #### 3 043, 79243 #### [facility] [address] [place] [address], [place] BLOOD STOOL GUAIACon 019 BLD STOOL GUAIAC Negative Normal NEGATIVE [facility] Comment on above: Order Comment: No: D o not add to previous draw Performed By: #### 3 897, 85822 #### [facility] [address] [place] [address], [place] MAGNESIUM BLOODon 08-16-2019 Magnesium [Mass/Vol] 2.0 mg/dL Normal 1.9-2.7 [facility] Comment on above: Order Comment: No: D o not add to previous draw Performed By: #### 3 730, 01902 #### [facility] [address] *URINE CULTUREon 08-15-2019 Bacteria identified Cx Nom (U) Clinical Report: (D) Specimen/Source: URINE/MIDSTREAM Collected: 08/15/2019 20:40 Status: Final Last Updated: 08/17/2019 08:05 ISO (Final) Escherichia coli >100,000 Cfu/Ml ISOLATE: Escherichia coli RHONDA (mcg/ml) AMP./SULBAC (AMS) 16/8 Intermediate AMPICILLIN (AM) >16 Resistant AZTREONAM (AZM) <=1 Susceptible CEFAZOLIN (CZ) 2 Susceptible CEFTRIAXONE (FOSTER CARE THERAPIST) <=0.5 Susceptible CIPROFLOXACIN (CIP) >2 Resistant ESBL (-/+) (ESBL) Negative GENTAMICIN (GM) <=1 Susceptible NITROFURANTOIN (FT) <=16 Susceptible PIP/TAZO (TZP) 4/4 Susceptible TOBRAMYCIN (TOB) 1 Susceptible TRIMETH/SULFA (SXT) >2/38 Resistant Normal [facility] Comment on above: Performed By: #### 3 6901, 57473 #### [facility] [address] BASIC METABOLIC PANELon 08-05 Calcium [Mass/Vol] 8.8 mg/dL Normal 8.6-10.3 [facility] Comment on above: Order Comment: No: D o not add to previous draw Performed By: #### 0 0071, 59574, 73536 #### [facility] [address] [place] [address], [facility] Chloride [Moles/Vol] 107 mmol/L Normal 98-107 [facility] Comment on above: Order Comment: No: D o not add to previous draw Performed By: #### 0 0071, 81168, 01529 #### [facility] [address] [place] [address], [facility] CO2 [Moles/Vol] 27 mmol/L Normal 21-31 [facility] Comment on above: Order Comment: No: D o not add to previous draw Performed By: #### 0 0071, 24863, 56051 #### [facility] [address] [place] [address], [place] Creatinine [Mass/Vol] 0.99 mg/dL Normal 0.60-1.20 [facility] Comment on above: Order Comment: No: D o not add to previous draw Performed By: #### 0 0071, 27234, 73958 #### [facility] [address] [place] [address], [place] GFR/1.73 sq M predicted among blacks MDRD (S/P/Bld) [Vol rate/Area] mL/min/{1.73_m2} Normal >60 [facility] Comment on above: Order Comment: No: D o not add to previous draw Performed By: #### 0 0071, 42006, 52910 #### [facility] [address] [place] [address], [place] GFR/1.73 sq M predicted among non-blacks MDRD (S/P/Bld) [Vol rate/Area] 59 ml/min/1.73sq m Abnormal >60 [facility] Comment on above: Order Comment: No: D o not add to previous draw Performed By: #### 0 0071, 38071, 20777 #### [facility] [address] [place] [address], [place] Glucose [Mass/Vol] 100 mg/dL Normal 70-100 [facility] Comment on above: Order Comment: No: D o not add to previous draw Performed By: #### 0 0071, 47419, 75262 #### [facility] [address] [place] [address], [place] Potassium [Moles/Vol] 3.6 mmol/L Normal 3.5-5.1 [facility] Comment on above: Order Comment: No: D o not add to previous draw Performed By: #### 0 0071, 04473, 73604 #### [facility] [address] [place] [address], [facility] Sodium [Moles/Vol] 140 mmol/L Normal 136-145 [facility] Comment on above: Order Comment: No: D o not add to previous draw Performed By: #### 0 0071, 50799, 00264 #### [facility] [address] [place] [address], [facility] Urea nitrogen [Mass/Vol] 9 mg/dL Normal 7-25 [facility] Comment on above: Order Comment: No: D o not add to previous draw Performed By: #### 0 0071, 30581, 70796 #### [facility] [address] [place] [address], [facility] LACTATE BLOODon 08-15-2019 Lactate [Moles/Vol] 0.8 mmol/L Normal 0.5-2.2 [facility] Comment on above: Order Comment: Yes: Add to Previous draw if able Performed By: #### 1 0054 #### [facility] [address] LMWH HEPARIN ASSAYon 019 LOW MOLECULAR WEIGHT HEPARIN 0.32 IU/mL Low 0.60-1.20 [facility] Comment on above: Order Comment: (draw 4 hours after enoxaparin dose) needed if patient > 150kg or BMI >50 not usually necessary but consider in renal dysfunction, hepaticdysfunction, , children, very underweight, or overweightNo: Do not add to previous drawPER VICKY CARRANZA, PATIENT RECEIVES DOSE AT 9 AM. TRY AGAIN AT 1300.PER VICKY ROCHANOX WAS GIVEN TO PATIENT AT 10AM SO PT NEEDS TO BE DRAWNAT 2PM Result Comment: The maximum anti-Factor Xa and anti-thrombin (anti-Factor IIa) activities occur 3 to 5 hours after SC injection of either enoxaparin (Lovenox) or dalteparin (Fragmin). Optimal time for testing is 4 hours after a dose is injected. Rivaroxaban and Apixaban will interfere with the anti Xa assay used to monitor UFH and LMWH. Performed By: #### 3 8431, 90886 #### [facility] [address] [facility] [place] [address], [facility] MAGNESIUM BLOODon 08-15-2019 Magnesium [Mass/Vol] 1.7 mg/dL Low 1.9-2.7 [facility] Comment on above: Order Comment: No: D o not add to previous draw Performed By: #### 0 0071, 29585, 58055 #### [facility] [address] [facility] [place] [address], [facility] PHOSPHORUS BLOODon 9 Phosphate [Mass/Vol] 4.1 mg/dL Normal 2.5-5.0 [facility] Comment on above: Order Comment: No: D o not add to previous draw Performed By: #### 0 0071, 66918, 34584 #### [facility] [address] [place] [address], [facility] UGI WITH SMALL BOWELon 08-15 UGI WITH SMALL BOWEL [facility] Department of Radiology [address] [place] [id number] Patient Name: CONSTANTINO CARDOSO : 1970 Sex: F Age: Race: White Pt. Location: [id number] Patient Status: O Ordered Date: 08/15/2019 10:45:00 AM Completed Date: 08/15/2019 03:43 PM Requesting Provider: CARLOTA AVENDANO Attending Provider: LEONA MORTENSEN Report Copy To: Signs & Symptoms: Abdomen Pain Generalized History: Hiatal hernia repair GB removal Abdomen pain CT: Ileus vs. Obstruction Comments: R/O Obstruction Exam: UGI WITH SMALL BOWEL UGI WITH SMALL BOWEL 08/15/2019 3:43 PM EST SIGNS AND SYMPTOMS: Abdomen Pain Generalized TECHNOLOGIST COMMENTS: Dr. Condon used 1.1 minutes of fluoro time and 200 ml's of Omnipaque 350 orally to assess small bowel and stomach for possible obstruction Complaint of lower abdominal pain QUESTION FOR THE RADIOLOGIST: R/O Obstruction CONTRAST: Contrast: OMNIPAQUE 350 (LOCM), 200 milliliter, Oral COMPARISON: none FINDINGS: Normal emptying of the esophagus is noted. Narrowing of the distal esophagus is consistent with the history of hiatal hernia repair. The stomach shows normal peristalsis and emptying. Small bowel follow-through was obtained with the contrast column reaching the descending colon in 45 minutes. Visualized small bowel loops show normal caliber. The descending colon appears narrowed with a lack of haustral markings. IMPRESSION: * No evidence of small bowel obstruction. * Narrowing of distal esophagus consistent with history of hiatal hernia repair. * Narrowing of the descending colon which lacks haustral markings suggests either stovepiping from ulcerative colitis or chronic ischemia. Electronically signed by:Orestes Condon. Transcribed by: [id number], User Resident: Electronically Signed by: ORESTES CONDON @ 08/15/2019 04:13 PM Normal [facility] Comment on above: Order Comment: R/O O bstruction URINALYSIS REFLEXon 08-15-20 Appearance (U) SL CLOUDY Abnormal CLEAR [facility] Comment on above: Order Comment: No: D o not add to previous drawCriteria for reflexing a culture was met. Urine Culture and sensitivitywill be performed. Performed By: #### 3 2462, 37156 #### [facility] [address] [place] [address], [facility] Bilirubin [Mass/Vol] Negative Normal NEGATIVE [facility] Comment on above: Order Comment: No: D o not add to previous drawCriteria for reflexing a culture was met. Urine Culture and sensitivitywill be performed. Performed By: #### 3 8461, 43165 #### [facility] [address] [place] [address], [place] BLOOD SMALL Abnormal NEGATIVE [facility] Comment on above: Order Comment: No: D o not add to previous drawCriteria for reflexing a culture was met. Urine Culture and sensitivitywill be performed. Performed By: #### 3 690, 97792 #### [facility] [address] [place] [address], [place] Color (U) YELLOW Normal YELLOW [facility] Comment on above: Order Comment: No: D o not add to previous drawCriteria for reflexing a culture was met. Urine Culture and sensitivitywill be performed. Performed By: #### 3 690, 11176 #### [facility] [address] [place] [address], [place] EPIS OCC Normal FEW,OCC,NON E SEEN [facility] Comment on above: Order Comment: No: D o not add to previous drawCriteria for reflexing a culture was met. Urine Culture and sensitivitywill be performed. Performed By: #### 3 179, 23635 #### [facility] [address] [place] [address], [place] Glucose [Mass/Vol] Negative Normal NEGATIVE [facility] Comment on above: Order Comment: No: D o not add to previous drawCriteria for reflexing a culture was met. Urine Culture and sensitivitywill be performed. Performed By: #### 3 677, 25197 #### [facility] [address] [place] [address], [place] HYALINE CASTS 6-10 Abnormal NONE SEEN [facility] Comment on above: Order Comment: No: D o not add to previous drawCriteria for reflexing a culture was met. Urine Culture and sensitivitywill be performed. Performed By: #### 3 3831, 71307 #### [facility] [address] [place] [address], [place] KETONE Negative Normal NEGATIVE [facility] Comment on above: Order Comment: No: D o not add to previous drawCriteria for reflexing a culture was met. Urine Culture and sensitivitywill be performed. Performed By: #### 3 0591, 86763 #### [facility] [address] [place] [address], [place] LEUK JONN MODERATE Abnormal NEGATIVE [facility] Comment on above: Order Comment: No: D o not add to previous drawCriteria for reflexing a culture was met. Urine Culture and sensitivitywill be performed. Performed By: #### 3 5421, 53326 #### [facility] [address] [place] [address], [place] MUCUS THREADS FEW Abnormal NONE SEEN [facility] Comment on above: Order Comment: No: D o not add to previous drawCriteria for reflexing a culture was met. Urine Culture and sensitivitywill be performed. Performed By: #### 3 1791, 79608 #### [facility] [address] [place] [address], [place] Nitrite Ql (U) Negative Normal NEGATIVE [facility] Comment on above: Order Comment: No: D o not add to previous drawCriteria for reflexing a culture was met. Urine Culture and sensitivitywill be performed. Performed By: #### 3 091, 24862 #### [facility] [address] [place] [address], [facility] pH (Bld) 5.0 Normal 5.0-8.0 [facility] Comment on above: Order Comment: No: D o not add to previous drawCriteria for reflexing a culture was met. Urine Culture and sensitivitywill be performed. Performed By: #### 3 5871, 37909 #### [facility] [address] [place] [address], [place] Protein (U) [Mass/Vol] Negative Normal NEGATIVE [facility] Comment on above: Order Comment: No: D o not add to previous drawCriteria for reflexing a culture was met. Urine Culture and sensitivitywill be performed. Performed By: #### 3 6901, 84830 #### [facility] [address] RBC (U) [#/Vol] 6-10 Abnormal NONE SEEN [facility] Comment on above: Order Comment: No: D o not add to previous drawCriteria for reflexing a culture was met. Urine Culture and sensitivitywill be performed. Performed By: #### 3 690, 79035 #### [facility] [address] [facility] [address] SPEC GRAV 1.025 High 1.015-1.020 [facility] Comment on above: Order Comment: No: D o not add to previous drawCriteria for reflexing a culture was met. Urine Culture and sensitivitywill be performed. Performed By: #### 3 690, 41552 #### [facility] [address] [facility] [address] WBC UA 51-100 Abnormal NONE SEEN [facility] Comment on above: Order Comment: No: D o not add to previous drawCriteria for reflexing a culture was met. Urine Culture and sensitivitywill be performed. Performed By: #### 3 6901, 00739 #### [facility] [address] [facility]. [address] CBC COMPLETE BLOOD COUNTon 10-15-2018 Erythrocyte distribution width (RBC) [Ratio] 12.7 % Normal 11.5-15.0 [facility] Comment on above: Order Comment: No: D o not add to previous draw Performed By: #### 5 0608 #### [facility] [address] [facility]. [address] Hematocrit (Bld) [Volume fraction] 31.2 % Low 36.0-45.0 [facility] Comment on above: Order Comment: No: D o not add to previous draw Performed By: #### 5 0608 #### [facility] [address] Hemoglobin (Bld) [Mass/Vol] 9.8 g/dL Low 12.0-15.0 [facility] Comment on above: Order Comment: No: D o not add to previous draw Performed By: #### 5 0608 #### [facility] [address] [place] [id number], [facility] MCH (RBC) [Entitic mass] 29.1 pg Normal 27.0-33.0 [facility] Comment on above: Order Comment: No: D o not add to previous draw Performed By: #### 5 0608 #### [facility] [address] [facility] [place] [place] [address], [facility] MCHC (RBC) [Mass/Vol] 31.4 g/dL Low 32.0-35.0 [facility] Comment on above: Order Comment: No: D o not add to previous draw Performed By: #### 5 0608 #### [facility] [address] [facility] [place] [place] [address], [facility] MCV (RBC) [Entitic vol] 92.6 fL Normal 82.0-98.0 [facility] Comment on above: Order Comment: No: D o not add to previous draw Performed By: #### 5 0608 #### [facility] [address] [facility] [place] [place] [address], [facility] Nucleated RBC/100 WBC (Bld) [Ratio] 0 % Normal 0-0 [facility] Comment on above: Order Comment: No: D o not add to previous draw Performed By: #### 5 0608 #### [facility] [address] [facility] [place] [place] [address], [facility] PLAT CNT 340 10*3/uL Normal 150-400 [facility] Comment on above: Order Comment: No: D o not add to previous draw Performed By: #### 5 0608 #### [facility] [address] [facility] [place] [place] [address], [facility] RBC (Bld) [#/Vol] 3.37 10*6/uL Low 3.80-5.00 [facility] Comment on above: Order Comment: No: D o not add to previous draw Performed By: #### 5 0608 #### [facility] [address] [facility] [address] WBC (Bld) [#/Vol] 6.04 10*3/uL Normal 4.00-10.60 [facility] Comment on above: Order Comment: No: D o not add to previous draw Performed By: #### 5 0608 #### [facility] [address] [facility] [address] PROTHROMBIN TIMEon 9 INR Coag (PPP) [Relative time] 1.09 {INR} Normal 0.91-1.16 [facility] Comment on above: Order Comment: No: D o not add to previous draw Result Comment: ACCC P RECOMMENDED INR FOR WARFARIN THERAPY -------- ------- CONDITION INR PROPHYLAXIS OF VENOUS THROMBOSIS 2-3 (HIGH-RISK SURGERY) TREATMENT OF VENOUS THROMBOSIS 2-3 TREATMENT OF PULMONARY EMBOLISM 2-3 PREVENTION OF SYSTEMIC EMBOLISM: 2-3 ACUTE MYOCARDIAL INFARCTION TISSUE HEART VALVES VALVULAR HEART DISEASE ATRIAL FIBRILLATION RECURRENT SYSTEMIC EMBOLISM MECHANICAL HEART VALVE 2.5-3.5 FROM: ORAL ANTICOAGULANTS. MECHANISM OF ACTION, CLINICAL EFFECTIVENESS, AND OPTIMAL THERAPEUTIC RANGE. CHEST 1995;108:231S-246S. Performed By: #### 5 6101 #### [facility] [address] PT Coag (PPP) [Time] 14.1 s Normal 12.3-14.8 [facility] Comment on above: Order Comment: No: D o not add to previous draw Result Comment: ALL RESULTS MUST BE INTERPRETED WITH RESPECT TO BLOOD DRAWING ARTIFACT OR DILUTION ERROR OF ANTICOAGULANT AT THE TIME OF SAMPLING. Performed By: #### 5 6101 #### [address] LIVER 08-14-2019 [facility] Department of Radiology [address] [place] [id number] Patient Name: CONSTANTINO CARDOSO : 1970 Sex: F Age: Race: White Pt. Location: [id number] Patient Status: O Ordered Date: 08/13/2019 8:30:00 PM Completed Date: 08/14/2019 10:25 AM Requesting Provider: LEONA MORTENSEN Attending Provider: LEONA MORTENSEN Report Copy To: Signs & Symptoms: RUQ/Abdominal Pain History: See Comments Comments: R/O Stones Exam: US LIVER US LIVER 08/14/2019 10:25 AM EST SIGNS AND SYMPTOMS: RUQ/Abdominal Pain TECHNOLOGIST COMMENTS: Abdomen pain. Gallbladder was removed 1989. QUESTION FOR THE RADIOLOGIST: R/O Stones TECHNIQUE: Limited abdominal ultrasound. COMPARISON: CT abdomen August 13, 2019. FINDINGS: The liver has normal echogenicity with no evidence of focal lesion or dilatation of intrahepatic bile ducts. Hepatopedal flow is seen in the portal vein with a flow rate of 21 cm/s. The bile duct measured 10 mm. A small echogenic focus adjacent to the bile duct may represent a surgical clip. IMPRESSION: Unremarkable appearance to liver. Mild dilatation of the biliary tree may be secondary to cholecystectomy. Electronically signed by:Orestes Condon. Transcribed by: [id number], User Resident: Electronically Signed by: ORESTES CONDON @ 08/14/2019 02:09 PM Normal [facility] Comment on above: Order Comment: R/O S tones BASIC METABOLIC PANELon 12-0 Calcium [Mass/Vol] 9.4 mg/dL Normal 8.6-10.3 [facility] Comment on above: Order Comment: No: D o not add to previous draw Performed By: #### 3 164, 68099 #### [facility] [address] [place] [address], [place] Chloride [Moles/Vol] 105 mmol/L Normal 98-107 [facility] Comment on above: Order Comment: No: D o not add to previous draw Performed By: #### 3 491, 82413 #### [facility] [address] [place] [address], [place] CO2 [Moles/Vol] 26 mmol/L Normal 21-31 [facility] Comment on above: Order Comment: No: D o not add to previous draw Performed By: #### 3 308, 58285 #### [facility] [address] [place] [address], [place] Creatinine [Mass/Vol] 1.03 mg/dL Normal 0.60-1.20 [facility] Comment on above: Order Comment: No: D o not add to previous draw Performed By: #### 3 3479, 77333 #### [facility] [address] [place] [address], [place] GFR/1.73 sq M predicted among blacks MDRD (S/P/Bld) [Vol rate/Area] mL/min/{1.73_m2} Normal >60 [facility] Comment on above: Order Comment: No: D o not add to previous draw Performed By: #### 3 231, 22650 #### [facility] [address] [place] [address], [facility] GFR/1.73 sq M predicted among non-blacks MDRD (S/P/Bld) [Vol rate/Area] 57 ml/min/1.73sq m Abnormal >60 [facility] Comment on above: Order Comment: No: D o not add to previous draw Performed By: #### 3 760, 45311 #### [facility] [address] [place] [address], [place] Glucose [Mass/Vol] 96 mg/dL Normal 70-100 [facility] Comment on above: Order Comment: No: D o not add to previous draw Performed By: #### 3 504, 80261 #### [facility] [address] [place] [address], [place] Potassium [Moles/Vol] 4.1 mmol/L Normal 3.5-5.1 [facility] Comment on above: Order Comment: No: D o not add to previous draw Performed By: #### 3 226, 49630 #### [facility] [address] [place] [address], [place] Sodium [Moles/Vol] 138 mmol/L Normal 136-145 [facility] Comment on above: Order Comment: No: D o not add to previous draw Performed By: #### 3 122, 95228 #### [facility] [address] [place] [address], [place] Urea nitrogen [Mass/Vol] 16 mg/dL Normal 7-25 [facility] Comment on above: Order Comment: No: D o not add to previous draw Performed By: #### 3 237, 39853 #### [facility] [address] [place] [address], [place] CBC W/DIFFon 08-13-2019 ABS BASOPHILS 0.0 10*3/uL Normal 0.0-0.2 [facility] Comment on above: Order Comment: No: D o not add to previous draw Performed By: #### 5 0103 #### [facility] [address] [place] [address], [facility] ABS IMM GRANS 0.0 10*3/uL Normal 0.0-0.2 [facility] Comment on above: Order Comment: No: D o not add to previous draw Performed By: #### 5 0103 #### [facility] [address] [place] [address], [facility] ABS NEUTROPHILS 4.0 10*3/uL Normal 1.6-7.6 [facility] Comment on above: Order Comment: No: D o not add to previous draw Performed By: #### 5 0103 #### [facility] [address] [place] [address], [facility] Basophils/100 WBC (Bld) 0.5 % Normal 0.0-1.0 [facility] Comment on above: Order Comment: No: D o not add to previous draw Performed By: #### 5 0103 #### [facility] [address] [facility] [place] [place] [address], [facility] Eosinophils (Bld) [#/Vol] 0.2 10*3/uL Normal 0.0-0.5 [facility] Comment on above: Order Comment: No: D o not add to previous draw Performed By: #### 5 0103 #### [facility] [address] [place] [address], [facility] Eosinophils/100 WBC (Bld) 3.3 % Normal 0.0-6.0 [facility] Comment on above: Order Comment: No: D o not add to previous draw Performed By: #### 5 0103 #### [facility] [address] [place] [address], [facility] Erythrocyte distribution width (RBC) [Ratio] 12.7 % Normal 11.5-15.0 [facility] Comment on above: Order Comment: No: D o not add to previous draw Performed By: #### 5 0103 #### [facility] [address] [place] [address], [facility] Hematocrit (Bld) [Volume fraction] 33.4 % Low 36.0-45.0 [facility] Comment on above: Order Comment: No: D o not add to previous draw Performed By: #### 5 0103 #### [facility] [address] [place] [address], [facility] Hemoglobin (Bld) [Mass/Vol] 10.5 g/dL Low 12.0-15.0 [facility] Comment on above: Order Comment: No: D o not add to previous draw Performed By: #### 5 0103 #### [facility] [address] [facility] [place] [address], [facility] IMMATURE GRANS 0.2 % Normal 0.0-1.0 [facility] Comment on above: Order Comment: No: D o not add to previous draw Performed By: #### 5 0103 #### [facility] [address] [facility] [place] [address], [facility] Lymphocytes (Bld) [#/Vol] 1.8 10*3/uL Normal 1.2-4.0 [facility] Comment on above: Order Comment: No: D o not add to previous draw Performed By: #### 5 0103 #### [facility] [address] [facility] [place] [address], [facility] Lymphocytes/100 WBC (Bld) 28.2 % Normal 20.0-45.0 [facility] Comment on above: Order Comment: No: D o not add to previous draw Performed By: #### 5 0103 #### [facility] [address] [place] [address], [facility] MCH (RBC) [Entitic mass] 28.9 pg Normal 27.0-33.0 [facility] Comment on above: Order Comment: No: D o not add to previous draw Performed By: #### 5 0103 #### [facility] [address] [place] [address], [facility] MCHC (RBC) [Mass/Vol] 31.4 g/dL Low 32.0-35.0 [facility] Comment on above: Order Comment: No: D o not add to previous draw Performed By: #### 5 0103 #### [facility] [address] [facility] [place] [address], [facility] MCV (RBC) [Entitic vol] 92.0 fL Normal 82.0-98.0 [facility] Comment on above: Order Comment: No: D o not add to previous draw Performed By: #### 5 0103 #### [facility] [address] [facility] [place] [place] [address], [facility] Monocytes (Bld) [#/Vol] 0.4 10*3/uL Normal 0.1-1.0 [facility] Comment on above: Order Comment: No: D o not add to previous draw Performed By: #### 5 0103 #### [facility] [address] [facility] [place] [address], [facility] MONOS 6.2 % Normal 5.0-12.0 [facility] Comment on above: Order Comment: No: D o not add to previous draw Performed By: #### 5 0103 #### [facility] [address] [place] [address], [facility] Neutrophils/100 WBC (Bld) 61.6 % Normal 40.0-72.0 [facility] Comment on above: Order Comment: No: D o not add to previous draw Performed By: #### 5 0103 #### [facility] [address] [place] [address], [facility] Nucleated RBC/100 WBC (Bld) [Ratio] 0 % Normal 0-0 [facility] Comment on above: Order Comment: No: D o not add to previous draw Performed By: #### 5 0103 #### [facility] [address] [place] [address], [facility] PLAT CNT 382 10*3/uL Normal 150-400 [facility] Comment on above: Order Comment: No: D o not add to previous draw Performed By: #### 5 0103 #### [facility] [address] [place] [address], [facility] RBC (Bld) [#/Vol] 3.63 10*6/uL Low 3.80-5.00 [facility] Comment on above: Order Comment: No: D o not add to previous draw Performed By: #### 5 0103 #### [facility] [address] [place] [address], [facility] WBC (Bld) [#/Vol] 6.45 10*3/uL Normal 4.00-10.60 [facility] Comment on above: Order Comment: No: D o not add to previous draw Performed By: #### 5 0103 #### [facility] [address] [place] [address], [facility] LIPASE BLOODon 08-13-2019 Lipase [Catalytic activity/Vol] 13 Units/L Normal 11-82 [facility] Comment on above: Performed By: #### 3 6901, 18596 #### [facility] [address] Vital Signs Date Time Vital Sign Value Performing Clinician Facility 07-22-2023 13:19-0500 Body height 170.[address] Work Phone: [facility] 07-22-2023 13:19-0500 Body weight 83.[address] Work Phone: [facility] 07-14-2023 11:40-0500 Diastolic blood pressure 95 mm[Hg] Marques Bradley MD Work Phone: [facility] 07-14-2023 11:40-0500 Heart rate 56 /min Marques Bradley MD Work Phone: [facility] 07-14-2023 11:40-0500 Respiratory rate 16 /min Marques Bradley MD Work Phone: [facility] 07-14-2023 11:40-0500 SaO2% (BldA) [Mass fraction] 97 % Marques Bradley MD Work Phone: [facility] 07-14-2023 11:40-0500 Systolic blood pressure 158 mm[Hg] Marques Bradley MD Work Phone: [facility] 07-14-2023 11:10-0500 Body temperature 97.2 [degF] Marques Bradley MD Work Phone: [facility] 07-14-2023 08:34-0500 Body height 170.2 cm Marques Bradley MD Work Phone: [facility] 07-14-2023 08:34-0500 Body weight 88 kg Marques Bradley MD Work Phone: [facility] 04-21-2023 09:30-0400 Body height 170.18 cm Renny Gan Other [facility] Other 04-21-2023 09:30-0400 Body mass index (BMI) [Ratio] 31.21 kg/m2 Renny Gan Other [facility] Other 04-21-2023 09:30-0400 Body weight 90.4 kg Renny Gan Other [facility] Other 04-21-2023 09:30-0400 Diastolic blood pressure 78 mm[Hg] Renny Gan Other [facility] Other 04-21-2023 09:30-0400 Systolic blood pressure 130 mm[Hg] Renny Gan Other [facility] Other 03-23-2023 07:33-0400 Diastolic blood pressure 80 mm[Hg] [employer] ATTENDANT-C Judi Mikael Work Phone: [facility] 03-23-2023 07:33-0400 Heart rate 81 /min [employer] ATTENDANT-C Judi Mikael Work Phone: [facility] 03-23-2023 07:33-0400 Respiratory rate 14 /min [employer] ATTENDANT-C Judi Mikael Work Phone: [facility] 03-23-2023 07:33-0400 SaO2% (BldA) [Mass fraction] 95 % [employer] ATTENDANT-C Judi Mikael Work Phone: [facility] 03-23-2023 07:33-0400 Systolic blood pressure 171 mm[Hg] [employer] ATTENDANT-C Judijose manuel Ugaldemer Work Phone: [facility] 03-23-2023 06:20-0400 Body height 170.18 cm [employer] ATTENDANT-C Judijose manuel Ugaldemer Work Phone: [facility] 03-23-2023 06:20-0400 Body temperature 97.4 [degF] [employer] ATTENDANT-C Judi Mikael Work Phone: [facility] 03-23-2023 06:20-0400 Body weight 90 kg [employer] ATTENDANT-C Judijose manuel Ugaldemer Work Phone: [facility] 02-19-2023 00:53-0400 Body temperature 96.98 [degF] Kaylinn Dokken [facility] 02-19-2023 00:53-0400 Diastolic blood pressure 99 mm[Hg] Kaylinn Dokken [facility] 02-19-2023 00:53-0400 Heart rate 75 /min Kaylinn Dokken [facility] 02-19-2023 00:53-0400 Respiratory rate 16 /min Kaylinn Dokken [facility] 02-19-2023 00:53-0400 SaO2% (BldA) [Mass fraction] 98 % Zabrina Santanaen [facility] 02-19-2023 00:53-0400 Systolic blood pressure 153 mm[Hg] Franklinylinn Dokken [facility] 02-15-2023 10:33-0400 Diastolic blood pressure 89 mm[Hg] [employer]EE SHOP ATTENDANT-C Judi Mikael Work Phone: [facility] 02-15-2023 10:33-0400 SaO2% (BldA) [Mass fraction] 100 % [employer] ATTENDANT-C Judi Mikael Work Phone: [facility] 02-15-2023 10:33-0400 Systolic blood pressure 149 mm[Hg] [employer] ATTENDANT-C Judi Mikael Work Phone: [facility] 02-15-2023 10:00-0400 Heart rate 83 /min [employer] ATTENDANT-C Judi Mikael Work Phone: [facility] 02-15-2023 10:00-0400 Respiratory rate 16 /min [employer] ATTENDANT-C Judi Mikael Work Phone: [facility] 02-15-2023 08:06-0400 Body height 170.18 cm [employer]EE SH[employer] ATTENDANT-C Judi Mikael Work Phone: [facility] 02-15-2023 08:06-0400 Body temperature 97.6 [degF] [employer] ATTENDANT-C Judi Mikael Work Phone: [facility] 02-15-2023 08:06-0400 Body weight 89.2 kg [employer]EE SHOP ATTENDANT-C Judi Mikael Work Phone: [facility] 10-26-2022 08:03-0500 Diastolic blood pressure 87 mm[Hg] [employer]EE SH[employer] ATTENDANT-C Judi Mikael Work Phone: [facility] 10-26-2022 08:03-0500 Heart rate 70 /min [employer] ATTENDANT-C Judi Mikael Work Phone: [facility] 10-26-2022 08:03-0500 Respiratory rate 18 /min [employer] ATTENDANT-C Judi Youssef Work Phone: [facility] 10-26-2022 08:03-0500 SaO2% (BldA) [Mass fraction] 98 % [employer] ATTENDANT-C Judi Youssef Work Phone: [facility] 10-26-2022 08:03-0500 Systolic blood pressure 161 mm[Hg] [employer] SHOP ATTENDANT-C Judi Ugaldemer Work Phone: [facility] 10-26-2022 06:17-0500 Body height 170.18 cm [employer]EE SHOP ATTENDANT-C Judi Ugaldemer Work Phone: [facility] 10-26-2022 06:17-0500 Body temperature 97.2 [degF] [employer] ATTENDANT-C Judi Youssef Work Phone: [facility] 10-26-2022 06:17-0500 Body weight 88.9 kg [employer]FFEE SHOP ATTENDANT-C Judi Youssef Work Phone: [facility] 07-22-2022 14:34-0500 Diastolic blood pressure 83 mm[Hg] Ospina SALAM [facility] 07-22-2022 14:34-0500 Mean blood pressure 101 mm[Hg] Ospina SALAM [facility] 07-22-2022 14:34-0500 Systolic blood pressure 136 mm[Hg] Ospina SALAM [facility] 07-22-2022 14:30-0500 Blood Pressure Location Ospina SALAM [facility] 07-22-2022 14:30-0500 Diastolic blood pressure 89 mm[Hg] Ospina SALAM [facility] 07-22-2022 14:30-0500 Heart rate 62 /min Ospina SALAM [facility] 07-22-2022 14:30-0500 Respiratory rate 16 /min Ospina SALAM [facility] 07-22-2022 14:30-0500 SaO2% (BldA) [Mass fraction] 98 % Ospina SALAM [facility] 07-22-2022 14:30-0500 Systolic blood pressure 141 mm[Hg] Ospina SALAM [facility] 04-14-2022 14:50-0400 Blood Pressure Location Monique Reddymetz [facility] 04-14-2022 14:50-0400 Body temperature 97.16 [degF] Moniquejuan luis ReddyJimmy [facility] 04-14-2022 14:50-0400 Diastolic blood pressure 86 mm[Hg] Moniquejuan luis ReddyJimmy [facility] 04-14-2022 14:50-0400 Heart rate 72 /min Monique Jimmy [facility] 04-14-2022 14:50-0400 SaO2% (BldA) [Mass fraction] 97 % Monique Jimmy [facility] 04-14-2022 14:50-0400 Systolic blood pressure 131 mm[Hg] Monique Jimmy [facility] 01-28-2022 13:36-0400 Blood Pressure Location Monique Jimmy [facility] 01-28-2022 13:36-0400 Body temperature 97.52 [degF] Monique Marquez [facility] 01-28-2022 13:36-0400 Diastolic blood pressure 85 mm[Hg] Monique Castañedaz [facility] 01-28-2022 13:36-0400 Heart rate 73 /min Monique Castañedaz [facility] 01-28-2022 13:36-0400 SaO2% (BldA) [Mass fraction] 96 % Monique Marquez [facility] 01-28-2022 13:36-0400 Systolic blood pressure 122 mm[Hg] Monique Marquez [facility] 01-11-2022 10:15-0400 Blood Pressure Location Ospina SALAM [facility] 01-11-2022 10:15-0400 Diastolic blood pressure 106 mm[Hg] Ospina SALAM [facility] 01-11-2022 10:15-0400 Heart rate 70 /min Ospina SALAM [facility] 01-11-2022 10:15-0400 Respiratory rate 28 /min Ospina SALAM [facility] 01-11-2022 10:15-0400 SaO2% (BldA) [Mass fraction] 99 % Ospina SALAM [facility] 01-11-2022 10:15-0400 Systolic blood pressure 137 mm[Hg] Ospina SALAM [facility] 01-11-2022 10:05-0400 Blood Pressure Location Ospina SALAM [facility] 01-11-2022 10:05-0400 Diastolic blood pressure 74 mm[Hg] Ospina SALAM [facility] 01-11-2022 10:05-0400 Heart rate 67 /min Ospina SALAM [facility] 01-11-2022 10:05-0400 Respiratory rate 14 /min Ospina SALAM [facility] 01-11-2022 10:05-0400 SaO2% (BldA) [Mass fraction] 97 % Ospina SALAM [facility] 01-11-2022 10:05-0400 Systolic blood pressure 128 mm[Hg] Ospina SALAM [facility] 01-11-2022 10:00-0400 Blood Pressure Location Ospina SALAM [facility] 01-11-2022 10:00-0400 Diastolic blood pressure 79 mm[Hg] Ospina SALAM [facility] 01-11-2022 10:00-0400 Heart rate 66 /min Ospina SALAM [facility] 01-11-2022 10:00-0400 Respiratory rate 16 /min Ospina SALAM [facility] 01-11-2022 10:00-0400 SaO2% (BldA) [Mass fraction] 98 % Ospina SALAM [facility] 01-11-2022 10:00-0400 Systolic blood pressure 134 mm[Hg] Ospina SALAM [facility] 01-11-2022 09:50-0400 Body temperature 97.52 [degF] Ospina SALAM [facility] 01-11-2022 09:45-0400 Respiratory rate 15 /min Ospina SALAM [facility] 01-11-2022 09:18-0400 Body temperature 97.34 [degF] Ospina SALAM [facility] 01-11-2022 09:18-0400 Respiratory rate 20 /min [facility] SALAM [facility] Encounters Encounter Date Encounter Type Care Provider Facility Start: 08-25-2023 End: 08-25-[address] [facility] Facility:[facility] Start: 07-29-2023 Orders Only Evelyn Black RN [facility] Surgery Comment on above: Gastroparesis (Prima ry Dx) Start: 07-22-2023 End: 07-22-2023 ambulatory MARQUES BRADLEY Facility:[facility] Start: 07-22-2023 Telephone encounter Evelyn Black RN General Surgery Start: 07-22-2023 End: 07-22-2023 Nutrition therapy Melissa Montalvo RD Work Phone: General Surgery Comment on above: Gastroparesis (Prima ry Dx); Malnutrition of moderate degree (HCC); Gastro-esophageal reflux disease without esophagitis; Overweight (BMI 25.0-29.9); Dietary counseling and surveillance Start: 07-22-2023 End: 07-22-2023 Telemedicine consultation with patient Melissa Montalvo RD Work Phone: [facility] Start: 07-14-2023 End: 07-14-2023 ambulatory MARQUES BRADLEY Facility:[facility] Start: 07-14-2023 End: 07-14-2023 Subsequent hospital visit by physician Marques Bradley MD Work Phone: Gastroenterology Comment on above: Dysphagia, unspecifi ed type [R13.10] Start: 07-13-2023 End: 07-13-2023 ambulatory MARQUES Patel MIRNA Facility:[facility] Start: 06-06-2023 End: 06-07-2023 ambulatory Samuel Estrella Facility:[facility] Start: 05-27-2023 Telephone encounter Evelyn Black RN General Surgery Comment on above: Results Start: 05-26-2023 End: 05-26-2023 ambulatory MARQUES BRADLEY Facility:[facility] Start: 05-25-2023 End: 05-25-[address] [facility] Facility:[facility] Start: 05-25-2023 End: 05-25-2023 Nursing evaluation of patient and report Nurse Gi Lab 2 Work Phone: Gastroenterology Comment on above: Nausea Start: 05-16-2023 Orders Only Evelyn Black RN Gen eral Surgery Comment on above: Nausea (Primary Dx); Dysphagia, unspecified type Start: 05-06-2023 End: 05-07-2023 ambulatory MARQUES BALLMADAN Facility: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 Start: 04-07-2023 Telephone encounter Guillermo Martinez DO Work Phone: Gastroenterology Comment on above: Appointment Start: 04-05-2023 End: 04-05-2023 ambulatory Imad Asaad Other [facility] Other Start: 04-05-2023 Telephone encounter Imad Asaad [facility] Start: 03-29-2023 ambulatory Facility:[facility] Start: 03-26-2023 ambulatory Facility:[id number] Start: 03-26-2023 End: 03-31-2023 Evaluation and management of inpatient Renny Hairston Lyssa Facility:[facility] Start: 03-26-2023 ambulatory Facility:[id number] Start: 03-24-2023 End: 03-24-2023 ambulatory Imad Asaad Other [facility] Other Start: 03-24-2023 Telephone encounter Imad Asaad [facility] Start: 03-23-2023 End: 03-23-2023 Emergency department patient visit Judi Joan Mikael Facility:[facility] Start: 03-23-2023 End: 03-23-2023 Emergency department patient visit [employer]EE [employer]OP ATTENDANT-C Judi Ugaldemer Work Phone: [facility] Work Phone: Start: 03-22-2023 End: 03-22-2023 ambulatory Imad Asaad Other [facility] Other Start: 03-22-2023 Telephone encounter Imad Asaad [facility] Start: 03-09-2023 End: 03-09-2023 ambulatory Imad Asaad Other [facility] Other Start: 03-09-2023 Telephone encounter Imad Asaad [facility] Start: 03-01-2023 End: 03-01-2023 ambulatory Imad Asaad Other [facility] Other Start: 03-01-2023 Telephone encounter Imad Asaad [facility] Start: 02-19-2023 End: 02-19-2023 Emergency department patient visit Zabrina Patton Facility:[facility] Start: 02-19-2023 End: 02-19-2023 Emergency department patient visit Zabrina Patton [facility] Start: 02-15-2023 End: 02-15-2023 Emergency department patient visit [employer]EE [employer] ATTENDANT-C Judi Youssef Work Phone: [facility] Work Phone: Start: 11-30-2022 End: 12-01-2022 ambulatory JUDI YOUSSEF Facility:[facility] Start: 11-27-2022 End: 11-28-2022 ambulatory JUDI YOUSSEF Facility:[facility] Start: 11-26-2022 End: 11-26-2022 ambulatory Imad Curtisad [facility] Other Start: 11-26-2022 Telephone encounter Imad Nany [facility] Start: 11-04-2022 End: 11-04-2022 ambulatory Judi Joan Mikael Facility:[facility] Start: 11-04-2022 End: 11-04-2022 Admission to same day surgery center [employer]EE [employer]OP ATTENDANT-C Judi Youssef Work Phone: [facility]-CT Scan [facility] [place] Work Phone: Start: 11-04-2022 End: 11-04-2022 ambulatory [employer]FFEE SHOP ATTENDANT-C Judi Youssef Work Phone: [facility] Work Phone: Start: 11-01-2022 End: 11-02-2022 ambulatory JUDI MIKAEL Facility:[facility] Start: 10-26-2022 End: 10-26-2022 Emergency department patient visit Judijose manuel Franco Mikael Facility:[facility] Start: 10-26-2022 End: 10-26-2022 Emergency department patient visit [employer]EE [employer] ATTENDANT-C Judi Youssef Work Phone: [facility] Work Phone: Start: 09-23-2022 ambulatory Monique Enrique ty:Lilo GARCIA Start: 09-21-2022 End: 09-21-2022 ambulatory JUDI YOUSSEF Facility:[facility] Start: 09-18-2022 End: 09-18-2022 ambulatory BALTAZAR GEORGES . Facility:[facility] Start: 09-14-2022 End: 09-14-2022 ambulatory EUN WILSON . Facility:[facility] Start: 09-07-2022 End: 09-07-2022 ambulatory Jennie Ayon [facility] Other Start: 09-07-2022 Telephone encounter Imleo Ayon [facility] Start: 09-06-2022 End: 09-07-2022 ambulatory JUDI YOUSSEF Facility:[facility] Start: 08-20-2022 End: 08-20-2022 ambulatory BALTAZAR GEORGES . Facility:[facility] Start: 08-17-2022 End: 08-18-2022 ambulatory JUDI YOUSSEF Facility:[facility] Start: 08-11-2022 End: 08-12-2022 ambulatory JUDI YOUSSEF Facility:[facility] Start: 08-08-2022 End: 08-08-2022 ambulatory KATHRIN VANCE Facility:[facility] Start: 07-22-2022 End: 07-23-2022 ambulatory [facility] Facility:[facility] Start: 07-22-2022 End: 07-22-2022 Patient encounter procedure [facility] Start: 07-21-2022 End: 07-21-[address] NORA WINN Facility:[facility] Start: 07-15-2022 ambulatory JUDI YOUSSEF Facility: [facility] Start: 07-12-2022 Encounter for genera l adult medical examination without abnormal findings JUDI YOUSSEF [facility] Start: 07-08-2022 End: 07-09-2022 ambulatory JUDI YOUSSEF Facility:[facility] Start: 07-08-2022 End: 07-09-2022 Encounter for general adult medical examination without abnormal findings JUDI YOUSSEF Facility:[facility] Start: 07-05-2022 End: 07-05-[address] JOHNATHAN RUDOLPH Facility:[facility] Start: 06-07-2022 End: 06-07-2022 ambulatory BALTAZAR GEORGES . Facility:[facility] Start: 06-06-2022 End: 06-06-2022 ambulatory BALTAZAR GEORGES . Facility:[facility] Start: 06-04-2022 End: 06-04-[address] NORA WINN Facility:[facility] Start: 04-29-2022 End: 04-29-2022 Lab Drop off Anai REAGAN [facility] Start: 04-14-2022 End: 04-14-2022 Patient encounter procedure Monique Marquez [facility] Start: 03-27-2022 End: 03-30-2022 Evaluation and management of inpatient SHAIKH Juan Luis DAVIS Facility:[facility] Start: 03-01-2022 End: 03-01-2022 Patient encounter procedure Monique A Jimmy [facility] Start: 02-02-2022 End: 02-02-2022 ambulatory BALTAZAR Larson Facility:[facility] Start: 01-28-2022 End: 01-28-2022 Patient encounter procedure Monique Reddymetz [facility] Start: 01-11-2022 End: 01-11-2022 Patient encounter procedure Anai MERARY [facility] Start: 12-24-2021 End: 12-24-2021 Patient encounter procedure JHOANA MELGOZA [facility] Start: 08-13-2019 End: 08-16-2019 Evaluation and management of inpatient LEONA MORTENSEN Facility:[facility] Procedures Date Procedure Procedure Detail Performing Clinician Start: 07-14-2023 Esophagoscp rig transoral hypopharynx crv esoph Evelyn Black RN Start: 05-25-2023 Esophageal motility study w/interp&rpt Evelyn Black RN Start: 03-23-2023 Computed tomography of abdomen and pelvis with contrast DONI Youssef Work Phone: Start: 02-15-2023 Computed tomography of abdomen and pelvis with contrast [employer]EE [employer] ATTENDANT-C Judi Youssef Work Phone: Start: 11-04-2022 CT of small intestine [employer]EE SH[employer] ATTENDANT-C Judi Youssef Work Phone: Start: 10-26-2022 Computed tomography of abdomen and pelvis with contrast [employer] ATTENDANT-C Judi Youssef Work Phone: Start: 01-11-2022 Esophagogastroduodenoscopy Anai REAGAN Start: 05-13-2021 Esophagogastroduodenoscopy JHOANA Vázquez Start: 09-30-2020 Esophagogastroduodenoscopy JHOANA Vázquez Start: 03-13-2020 Colonoscopy HJOANA MELGOZA Start: 01-30-2020 Esophagogastroduodenoscopy JHOANA Vázquez Start: 08-15-2019 FLUOROSCOPY OF UPPER GI AND SMALL BOWEL USING OTHER CONTRAST ORESTES CONDON Start: 05-17-2019 Colonoscopy JHOANA MELGOZA Start: 05-17-2019 Esophagogastroduodenoscopy JHOANA Vázquez Start: 03-02-2019 Hernia surgical mesh (physical object) JHOANA MELGOZA Comment on above: Dr. Mortensen in [place]. Hernia repair JHOANA MELGOZA Hysterectomy JHOANA MELGOZA Plan of Treatment Date Care Activity Detail Author Start: 05-06-2023 Covid-19 Vaccine () Covid-19 Vaccine () [facility] Start: 05-06-2023 Influenza vaccination [facility] Start: 09-05-2022 DEPRESSION ASSESSMENT DEPRESSION ASS ESSMENT [facility] Start: 01-01-2022 COVID-19 VACCINE (4 - Pfizer series) COVID-19 VACCINE (4 - Pfizer series) [facility] Start: 2020 SHINGRIX VACCINE (1 of 2) SHINGRIX VACCINE (1 of 2) [facility] Start: 2015 COLOGUARD (FIT-DNA) COLOGUARD (FIT-D NA) [facility] Start: 2015 Colonoscopy COLONOSCOPY [facility] Start: 2015 COLORECTAL CANCER SCREENING COLORECTAL CANCER SCREENING [facility] Start: [address] COLONOGRAPHY [facility] Start: 2015 DIABETES SCREEN DIABETES SCREEN [facility] Start: 2015 Diabetes Screening Diabetes Screenin g [facility] Start: 2015 FECAL OCCULT BLOOD FECAL OCCULT BLOO D [facility] Start: 2015 Lipid 1996 panel - S cristine or Plasma Lipid Screening [facility] Start: 2015 LIPID SCREEN LIPID SCREEN [facility] Start: 2015 SIGMOIDOSCOPY SIGMOIDOSCOPY [facility] Start: 2010 Mammography [facility] Start: 2000 HPV TESTING HPV TESTING [facility] Start: 1991 PAP TESTING PAP TESTING [facility] Start: 1989 Urine microalbumin profile [facility] Start: 1988 HEPATITIS C SCREENING HEPATITIS C SC REENING [facility] Start: 1988 HIV SCREENING HIV SCREENING [facility] Start: 1970 COVID-19 VACCINE (#1) COVID-19 VACCI NE (#1) [facility] Start: 1970 HEPATITIS B (1 of 3 - 3-dose series) HEPATITIS B (1 of 3 - 3-dose series) [facility] Start: 1970 Hepatitis B Vaccine (1 of 3 - 3-dose series) Hepatitis B Vaccine (1 of 3 - 3-dose series) [facility] End: 07-29-2024 EGD - THERAPEUTIC, EUS, OR TUBE INTERVENTIONS EGD - THERAPEUTIC, EUS, OR TUBE INTERVENTIONS Endoscopy Routine Gastroparesis 1 Occurrences starting 07/29/2023 until 07/29/2024 [facility] Work Phone: Comment on above: 1 Occurrences starti ng 07/29/2023 until 07/29/2024 End: 05-16-2024 Esophageal motility study w/interp&rpt MANOMETRY ESOPHAGEAL Endoscopy Routine Nausea 1 Occurrences starting 05/16/2023 until 05/16/2024 [facility] Work Phone: Comment on above: 1 Occurrences starti ng 05/16/2023 until 05/16/2024 Esophageal motility study w/interp&rpt MANOMETRY ESOPHAGEAL Endoscopy Routine Nausea 05/25/2023 [facility] Work Phone: End: 06-14-2024 Gastric emptying imaging study NM GASTRIC EMPTYING SOLID Radiology Routine Nausea 1 Occurrences starting 05/16/2023 until 06/14/2024 [facility] Work Phone: Comment on above: 1 Occurrences starti ng 05/16/2023 until 06/14/2024 Patient Education [facility] Work Phone: Patient referral [facility] Work Phone: SURGICAL PATHOLOGY [facility] Work Phone: Comment on above: Release Upon Orderin g for 1 Occurrences starting 07/14/2023, 1 completed [facility] Immunizations Immunization Date Immunization Notes Care Provider Jamal jackson 06-09-2022 influenza virus vaccine, unspecified formulation Nurse 2 Work Phone: [facility] 03-18-2022 SARS-CoV-2 mRNA (xtjgdfeubqr-xxel-jov jett) vaccine Ospina SALAM [facility] 11-06-2021 SARS-CoV-2 (COVID-19 ) mRNA BNT-162b2 vax Ospina SALAM [facility] 05-06-2021 influenza virus vaccine, unspecified formulation JHOANA MELGOZA [facility] 02-26-2021 SARS-CoV-2 (COVID-19 ) mRNA BNT-162b2 vax JHOANA MELGOZA [facility] 02-05-2021 SARS-CoV-2 (COVID-19 ) mRNA BNT-162b2 frantz REAGAN [facility] Comment on above: Result Comment: 2021: [id number] NEGATED: Highlighted row has not occurred!04-14-2022 influenza virus vaccine, unspecified formulation Monique Marquez [facility] Payers Date Payer Category Payer Unknown RINA MARTINEZ SS PPO [id number] 2022-Present [phone] [address] [place] [address] PPO [id number] 2018 Private Health Insurance [id number] 2018 Private Health Insurance [facility] CHOICE PLUS [id number] 2018-Present [phone] [address] [place] [address] HMO [id number] 1970 Unknown [id number] 2.16.840.1.620796.3.579.2 .647 1970 Unknown [id number] 2.16.840.1.272821.3.579.2 .593 1970 Unknown [id number] 2.16.840.1.825079.3.579.2 .593 1970 Unknown [id number] 2.16.840.1.957994.3.579.2 .593 1970 Unknown [id number] 2.16.840.1.520530.3.579.2 .593 1970 Unknown [id number] 2.16.840.1.897341.3.579.2 .593 1970 Unknown [id number] 2.16.840.1.307053.3.579.2 .593 1970 Unknown [id number] 2.16.840.1.351269.3.579.2 .593 1970 Unknown [id number] 2.16.840.1.537167.3.579.2 .593 1970 Unknown [id number] 2.16.840.1.587564.3.579.2 .593 1970 Unknown [id number] 2.16.840.1.776769.3.579.2 .593 1970 Unknown [id number] 2.16.840.1.825010.3.579.2 .593 1970 Unknown [id number] 2.16.840.1.161614.3.579.2 .593 1970 Unknown [id number] 2.16.840.1.783471.3.579.2 .593 1970 Unknown [id number] 2.16.840.1.622197.3.579.2 .593 1970 Unknown [id number] 2.16.840.1.070441.3.579.2 .593 1970 Unknown [id number] 2.16.840.1.935850.3.579.2 .593 1970 Unknown [id number] 2.16.840.1.948939.3.579.2 .593 1970 Unknown [id number] 2.16.840.1.934179.3.579.2 .593 1970 Unknown [id number] 2.16.840.1.356864.3.579.2 .593 1970 Unknown [id number] 2.16.840.1.931263.3.579.2 .593 1970 Unknown [id number] 2.16.840.1.682869.3.579.2 .356 1970 Unknown [id number] 2.16.840.1.975688.3.579.2 .356 1970 Unknown [id number] 2.16.840.1.562262.3.579.2 .727 1970 Unknown [id number] 2.16.840.1.820876.3.579.2 .727 1970 Unknown [id number] 2.16.840.1.517907.3.579.2 .727 1970 Unknown [id number] 2.16.840.1.114306.3.579.2 .727 1959 Medicaid [id number] 1959 Self-pay [id number] 1959 Unknown [id number] 1959 Unknown [id number] Medicare Medicare [id number] Unknown [id number] 2.16.840.1.094495.3.579.2 .531 Unknown [id number] 2.16.840.1.508407.3.579.2 .531 Unknown [id number] 2.16.840.1.752529.3.579.2 .531 Unknown [id number] 2.16.840.1.910151.3.579.2 .531 Unknown [id number] 2.16.840.1.490941.3.579.2 .531 Worker's Compensation Industrial [employer] [facility] [id number] Social History Date Type Detail Facility Start: 12-03-2021 End: 05-06-2023 Tobacco smoking status [facility] Start: 08-12-2020 End: 05-06-2023 Sex Assigned At Female [facility] Tobacco smoking status Never Jone [facility] Start: 1970 Sex Assigned At Female F [facility] End: 09-05-2011 History of tobacco use Current smoker [facility] Work Phone: End: 09-05-2011 History of tobacco use Cigarette Smoker [facility] Work Phone: Start: 04-28-2018 End: 05-06-2023 Tobacco use and exposure Smokeless tobacco non-user [facility] Work Phone: Start: 04-28-2018 End: 05-06-2023 Alcohol intake Current drinker of alcohol (finding) [facility] Start: 08-12-2020 End: 05-06-2023 History of Social function [facility] Start: 04-28-2018 End: 05-06-2023 Tobacco Comment still smokes [facility] Start: 04-28-2018 Alcohol Comment social [facility] Start: 1970 Sex Assigned At Not on file [facility] Start: 07-14-2023 Alcohol intake Ex-drinker (finding) [facility] Functional Status Date Assessment Result Facility 02-19-2023 Functional Status N/A [facility] 07-22-2022 Functional Status N/A [facility] 04-14-2022 Functional Status N/A [facility] Clinical Notes 12-02-2021 to 08-25-2023 Evelyn Black RN - 07/29/2023 11:17 AM ESTPatient InstructionsTelephone Encounter - Evelyn Black RN - 07/22/2023 3:[address] - 07/22/2023 1:15 PM EST Note Date & Type Note Facility 08-25-2023 Note HNO ID: [id number] Author: Ellis Mayberry DO Service: ? Author Type: Resident Type: Anesthesia Procedure Notes Filed: 08/25/2023 2:59 PM Note Text: ANESTHESIOLOGY PROCEDURE NOTE Airway General Information Procedure Start Time/Medication Administration: 08/25/2023 2:54 PM Patient location during procedure: OR Timeout Performed Pre-procedure: timeout performed Consent Obtained: Yes Patient identity confirmed: arm band and patient Staffing Resident: Ellis Mayberry DO Performed by: resident Indications and Patient Condition Indications for airway management: anesthesia Preoxygenated: yes anesthesia circuit Method: sleep Difficult Mask: No Final Airway Details Final airway type: endotracheal airway Final Endotracheal Airway: ETT Cuffed: yes Successful intubation technique: video laryngoscopy Devices used: Rodriguez Endotracheal tube insertion site: oral Blade: Jake Blade size: #3 ETT size (mm): 7.0 Measured from: lips Measurement (cm): 22 Placement verified by: chest auscultation and capnometry Cormack-Lehane Classification: grade I - full view of glottis Number of attempts at approach: 1 Airway not difficult SIGNATURE: Ellis Mayberry DO PATIENT NAME: Constantino Cardoso DATE: August 25, 2023 TIME: 2:59 PM CSN: [id number] [facility] 08-25-2023 Note Q3 Patient Name: Constantino Cardoso Procedure Date: 08/25/2023 2:38 PM Date of : 1970 Admit Type: Outpatient Age: 53 Gender: Female Note Status: Finalized Attending MD: Marques Bradley MD, [id number] Procedure: Upper GI endoscopy Indications: Gastroparesis- for GPOEM Providers: Marques Bradley MD, Gavi Bourgeois (Fellow) Patient Profile: This is a 53 year old female. Refer to note in patient chart for documentation of history and physical. Referring Physician: Marques Bradley MD (Referring MD) Medicines: See the Anesthesia note for documentation of the administered medications Complications: No immediate complications. Requesting Provider: Procedure: Pre-Anesthesia Assessment: - Prior to the procedure, a History and Physical was performed, and patient medications and allergies were reviewed. The patient is competent. The risks and benefits of the procedure and the sedation options and risks were discussed with the patient. All questions were answered and informed consent was obtained. Patient identification and proposed procedure were verified by the physician in the pre-procedure area. Mental Status Examination: alert and oriented. Airway Examination: normal oropharyngeal airway and neck mobility. Respiratory Examination: clear to auscultation. CV Examination: normal. Prophylactic Antibiotics: The patient requires prophylactic antibiotics. Prior Anticoagulants: The patient has taken no anticoagulant or antiplatelet agents. ASA Grade Assessment: II - A patient with mild systemic disease. After reviewing the risks and benefits, the patient was deemed in satisfactory condition to undergo the procedure. The anesthesia plan was to use moderate sedation / analgesia (conscious sedation). Immediately prior to administration of medications, the patient was re-assessed for adequacy to receive sedatives. The heart rate, respiratory rate, oxygen saturations, blood pressure, adequacy of pulmonary ventilation, and response to care were monitored throughout the procedure. The physical status of the patient was re-assessed after the procedure. After obtaining informed consent, the endoscope was passed under direct vision. Throughout the procedure, the patient's blood pressure, pulse, and oxygen saturations were monitored continuously. The Endoscope was introduced through the mouth, and advanced to the second part of duodenum. The upper GI endoscopy was accomplished without difficulty. The patient tolerated the procedure well. Moderate Sedation: See the other procedure note for documentation of moderate sedation with intraservice time. MAC anesthesia was administered by the anesthesia team. Findings: A 2 cm hiatal hernia was present. Prior partial fundoplication was found at the gastroesophageal junction. The entire examined stomach was normal. The examined duodenum was normal. GPOEM on lesser curve performed. Injection 3cm from pylorus. Incision with TT knife, dissected to duodeneum. Pylorus divided with knife. Mucosotomy closed with clips. Impression: - 2 cm hiatal hernia. - A partial fundoplication was found. - Normal stomach. - Normal examined duodenum. - No specimens collected. Estimated Blood Loss: Estimated blood loss: none. Recommendation: - Discharge patient to home (ambulatory). - Full liquids 2 weeks. PPI, carafate. - Patient has a contact number available for emergencies. The signs and symptoms of potential delayed complications were discussed with the patient. Return to normal activities tomorrow. Written discharge instructions were provided to the patient. Procedure Code(s): --- Professional --- 22231 Diagnosis Code(s): --- Professional --- K44.9 Z98.890 CPT copyright 2020 [employer]. All rights reserved. Attending Participation: I personally performed the entire procedure. Scope In: 2:59:10 PM Scope Out: 3:37:20 PM MD Marques Rainey MD 08/25/2023 3:41:00 PM This report has been signed electronically by Marques Bradley MD Number of Addenda: 0 Note Initiated On: 08/25/2023 2:38 PM [facility] 07-29-2023 Note HNO ID: [id number] Author: Evelyn Black RN Service: ? Author Type: Registered Nurse Type: Progress Notes Filed: 07/29/2023 11:18 AM Note Text: e [facility] 07-29-2023 History of Present illness Narrative e documented in this encounter [facility] 07-22-[address] - 07/22/2023 4:04 PM EST Nutrition Intervention 07/22/2023: Modify type and amount of foods consumed for meals and snacks Consume 3-5 small, soft, high protein meals/snacks per day. Use protein shakes, powders or broths to supplement protein intake. Aim for shakes ~150-200 calories, ~15-30 grams of protein, <5 grams of total sugar: Premier Protein, Fairlife, Slim Fast High Protein, Atkins, Boost Glucose Control, Owyn, [place] Breakfast Essentials Light Start mixed with Fairlife fat free or 1% milk. -Check www.bariatricfusion.com or www.unjury.com for additional options. Take small bites, eat slowly, chew food well, and always eat protein first. Separate eating and drinking by 30 min before and after. Aim for >64 oz water/day. Take small sips and avoid straws. Liquids should be sugar-free, no calories, no carbonation, no caffeine. Protein juarez ([id number], Isopure, Gatorade protein), electrolyte drinks (Gatorade or Powerade zero, sugar free liquid IV or Drip Drop), sugar free jello and sugar free popsicles are also acceptable. Nutrition Monitoring & Evaluation: increase PO intake >75% of estimated needs, weight check and patient update Need for Follow up: based on surgery status documented in this encounter [facility] 07-22-2023 Note HNO ID: [id number] Author: Melissa Montalvo RD Service: ? Author Type: Registered Dietitian Type: Progress Notes Filed: 07/22/2023 4:06 PM Note Text: [facility] Nutrition Therapy: Virtual Consult - Initial Assessment I have communicated my name and active licensure. The patient?s identity and physical location were verified at the time of this visit. Either the patient or their legal textiles sales representative has been informed of the risks and benefits of -- and alternatives to -- treatment through a remote evaluation and consents to proceed with the evaluation remotely. Nutrition Diagnosis: Altered Gastrointestinal Tract Function, related to, GI dysmotility (gastroparesis, global dysmotility, colonic inertia) and s/p hernia repair, as evidenced by surgical history and Overweight/obesity, related to, food/nutrition - related knowledge deficit, as evidenced by BMI above normative standard for age and gender. RECOMMENDED MALNUTRITION DIAGNOSIS: MODERATE PROTEIN-CALORIE MALNUTRITION NUTRITION CARE PLAN Nutrition Intervention 07/22/2023: Modify type and amount of foods consumed for meals and snacks Consume 3-5 small, soft, high protein meals/snacks per day. Use protein shakes, powders or broths to supplement protein intake. Aim for shakes ~150-200 calories, ~15-30 grams of protein, <5 grams of total sugar: Premier Protein, Fairlife, Slim Fast High Protein, Atkins, Boost Glucose Control, Owyn, [place] Breakfast Essentials Light Start mixed with Fairlife fat free or 1% milk. -Check www.bariatricfusion.com or www.unjury.com for additional options. Take small bites, eat slowly, chew food well, and always eat protein first. Separate eating and drinking by 30 min before and after. Aim for >64 oz water/day. Take small sips and avoid straws. Liquids should be sugar-free, no calories, no carbonation, no caffeine. Protein juarez ([id number], Isopure, Gatorade protein), electrolyte drinks (Gatorade or Powerade zero, sugar free liquid IV or Drip Drop), sugar free jello and sugar free popsicles are also acceptable. Nutrition Monitoring AND Evaluation: increase PO intake >75% of estimated needs, weight check and patient update Need for Follow up: based on surgery status Patient presents for initial nutrition consult in preparation for bariatric surgery. Patient is interested in POP procedure for gastroparesis (Dr. Bradley). Height and weight discussed today. Presents overweight with Body mass index is 28.82 kg/m?. Significant medical comorbidities include gastroparesis, GERD, h/o HH repair. Patient reports dysphagia, abdominal cramping, n/v with PO intake. Previous diet attempts include n/a. Weight history significant for adult onset weight gain (maintains around 194 lbs, highest 220 lbs in 2018). Greatest motivation for surgery includes relief of pain, health, and QOL. Diet recall indicates inconsistent intake with only 1 small meal and occasional snack. Patient is unable to tolerate most foods and complains of abdominal pain and diarrhea with PO intake. Foods are soft and low fiber with inadequate intake of protein. Patient would benefit from additional high protein shakes or snacks to help meet protein/energy needs. Fluid intake includes sufficient water and regularly consumption of SSB and coffee. 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 [place] body weight: 159 lbs. Protein needs estimated: 87 gm (1.2 g protein/kg IBW) Patient's symptoms are: GI: abdominal pain, nausea, and vomiting Diet History: hourly shift work Breakfast - 1/2-1 cup aixa wheats w/ 2% milk or small bowl sausage gravy Snack - occasional applesauce or pudding Beverages - michael-aid, >64 oz water, 1 cup coffee w/ splash of flavored creamer Alcohol- none Vitamins/Supplements - none Activity: Activities of Daily Living: Active 50% of the day. 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 Resting Metabolic Rate: 1521 Malnutrition Screening Significant unintentional weight loss? Yes Eating less than 75% of usual intake for more than 2 weeks? Yes Potential Signs of Inflammation: no identifiable sources In the context of Chronic Illness or Injury based on: Unintentional Weight Loss: 5% in 1 month Insufficient Energy Intake: Less than 75% energy intake compared to estimated needs for greater than or equal to 1 month Education Materials Provided: Diet for Gastroparesis and Guidelines for Gastrointestinal Soft Diet READINESS TO LEARN Cognitive ability: Alert and oriented Motivation to learn: Interested Family support: Unab (more content not included)... [facility] 07-22-2023 Miscellaneous Notes BMI SPECIALTY CARE COORDINATION TELEPHONE ENCOUNTER Pt was seen in clinic and an EGD was ordered and completed. Recommendation was a GPOEM. Will consult with surgeon next week regarding next POC for pt. Pt VU. documented in this encounter [facility] 07-22-2023 History of Present illness Narrative The [facility] Nutrition Therapy: Virtual Consult - Initial Assessment I have communicated my name and active licensure. The patient s identity and physical location were verified at the time of this visit. Either the patient or their legal textiles sales representative has been informed of the risks and benefits of -- and alternatives to -- treatment through a remote evaluation and consents to proceed with the evaluation remotely. Nutrition Diagnosis: Altered Gastrointestinal Tract Function, related to, GI dysmotility (gastroparesis, global dysmotility, colonic inertia) and s/p hernia repair, as evidenced by surgical history and Overweight/obesity, related to, food/nutrition - related knowledge deficit, as evidenced by BMI above normative standard for age and gender. RECOMMENDED MALNUTRITION DIAGNOSIS: MODERATE PROTEIN-CALORIE MALNUTRITION NUTRITION CARE PLAN Nutrition Intervention 07/22/2023: Modify type and amount of foods consumed for meals and snacks Consume 3-5 small, soft, high protein meals/snacks per day. Use protein shakes, powders or broths to supplement protein intake. Aim for shakes ~150-200 calories, ~15-30 grams of protein, <5 grams of total sugar: Premier Protein, Fairlife, Slim Fast High Protein, Atkins, Boost Glucose Control, Owyn, [place] Breakfast Essentials Light Start mixed with Fairlife fat free or 1% milk. -Check www.bariatricfusion.com or www.Divesquare.com for additional options. Take small bites, eat slowly, chew food well, and always eat protein first. Separate eating and drinking by 30 min before and after. Aim for >64 oz water/day. Take small sips and avoid straws. Liquids should be sugar-free, no calories, no carbonation, no caffeine. Protein juarez ([id number], Isopure, Gatorade protein), electrolyte drinks (Gatorade or Powerade zero, sugar free liquid IV or Drip Drop), sugar free jello and sugar free popsicles are also acceptable. Nutrition Monitoring & Evaluation: increase PO intake >75% of estimated needs, weight check and patient update Need for Follow up: based on surgery status Patient presents for initial nutrition consult in preparation for bariatric surgery. Patient is interested in POP procedure for gastroparesis (Dr. Bradley). Height and weight discussed today. Presents overweight with Body mass index is 28.82 kg/m . Significant medical comorbidities include gastroparesis, GERD, h/o HH repair. Patient reports dysphagia, abdominal cramping, n/v with PO intake. Previous diet attempts include n/a. Weight history significant for adult onset weight gain (maintains around 194 lbs, highest 220 lbs in 2018). Greatest motivation for surgery includes relief of pain, health, and QOL. Diet recall indicates inconsistent intake with only 1 small meal and occasional snack. Patient is unable to tolerate most foods and complains of abdominal pain and diarrhea with PO intake. Foods are soft and low fiber with inadequate intake of protein. Patient would benefit from additional high protein shakes or snacks to help meet protein/energy needs. Fluid intake includes sufficient water and regularly consumption of SSB and coffee. 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 [place] body weight: 159 lbs. Protein needs estimated: 87 gm (1.2 g protein/kg IBW) Patient's symptoms are: GI: abdominal pain, nausea, and vomiting Diet History: hourly shift work Breakfast - 1/2-1 cup aixa wheats w/ 2% milk or small bowl sausage gravy Snack - occasional applesauce or pudding Beverages - michael-aid, >64 oz water, 1 cup coffee w/ splash of flavored creamer Alcohol- none Vitamins/Supplements - none Activity: Activities of Daily Living: Active 50% of the day. 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 Resting Metabolic Rate: 1521 Malnutrition Screening Significant unintentional weight loss? Yes Eating less than 75% of usual intake for more than 2 weeks? Yes Potential Signs of Inflammation: no identifiable sources In the context of Chronic Illness or Injury based on: Unintentional Weight Loss: 5% in 1 month Insufficient Energy Intake: Less than 75% energy intake compared to estimated needs for greater than or equal to 1 month Education Materials Provided: Diet for Gastroparesis and Guidelines for Gastrointestinal Soft Diet READINESS TO LEARN Cognitive ability: Alert and oriented Motivation to learn: Interested Family support: Unable to assess - Family not present Instruction provided to: Patient Patient learns best by: Multiple Methods Factors affecting learning: None Physical limitations affecting learning: None Referred by: Mirna HOLLY Billing Type: Initial Assess/15 min 2 units SIGNATURE: Melissa Montalvo RD PATIENT NAME: Constantino Cardoso DATE: 07/22/2023 TIME: 2:18 PM documented in this encounter [facility] 07-14-2023 Note Q3 Patient Name: Constantino Cardoso Procedure Date: 07/14/2023 10:24 AM Date of : 1970 Admit Type: Outpatient Age: 53 Gender: Female Note Status: Finalized Attending MD: Marques Bradley MD Procedure: Upper GI endoscopy Indications: Epigastric abdominal pain Providers: Marques Bradley MD Patient Profile: This is a 53 year old female. Referring Physician: Marques Bradley MD (Referring MD) Medicines: See the Anesthesia note for documentation of the administered medications Complications: No immediate complications. Requesting Provider: Procedure: Pre-Anesthesia Assessment: - Prior to the procedure, a History and Physical was performed, and patient medications and allergies were reviewed. The patient is competent. The risks and benefits of the procedure and the sedation options and risks were discussed with the patient. All questions were answered and informed consent was obtained. Patient identification and proposed procedure were verified by the physician in the pre-procedure area. Mental Status Examination: alert and oriented. Airway Examination: normal oropharyngeal airway and neck mobility. Respiratory Examination: clear to auscultation. CV Examination: normal. Prophylactic Antibiotics: The patient does not require prophylactic antibiotics. Prior Anticoagulants: The patient has taken no anticoagulant or antiplatelet agents. ASA Grade Assessment: II - A patient with mild systemic disease. After reviewing the risks and benefits, the patient was deemed in satisfactory condition to undergo the procedure. The anesthesia plan was to use moderate sedation / analgesia (conscious sedation). Immediately prior to administration of medications, the patient was re-assessed for adequacy to receive sedatives. The heart rate, respiratory rate, oxygen saturations, blood pressure, adequacy of pulmonary ventilation, and response to care were monitored throughout the procedure. The physical status of the patient was re-assessed after the procedure. After obtaining informed consent, the endoscope was passed under direct vision. Throughout the procedure, the patient's blood pressure, pulse, and oxygen saturations were monitored continuously. The Endoscope was introduced through the mouth, and advanced to the second part of duodenum. The upper GI endoscopy was accomplished without difficulty. The patient tolerated the procedure well. Moderate Sedation: See the other procedure note for documentation of moderate sedation with intraservice time. MAC anesthesia was administered by the anesthesia team. Findings: A 2 cm hiatal hernia was present. Localized mildly erythematous mucosa without bleeding was found in the prepyloric region of the stomach. Biopsies were taken with a cold forceps for Helicobacter pylori testing. Evidence of a partial fundoplication was found at the gastroesophageal junction. The wrap appeared loose. This was traversed. The examined duodenum was normal. 2-3cm hernia, herniated wrap, esaily traversed. No esophagitis, no obstruction. Impression: - 2 cm hiatal hernia. - Erythematous mucosa in the prepyloric region of the stomach. Biopsied. - A partial fundoplication was found. The wrap appears loose. - Normal examined duodenum. Estimated Blood Loss: Estimated blood loss: none. Recommendation: - Consider GPOEM given NM study and endoscopic findings. - Patient has a contact number available for emergencies. The signs and symptoms of potential delayed complications were discussed with the patient. Return to normal activities tomorrow. Written discharge instructions were provided to the patient. Procedure Code(s): --- Professional --- 48616 Diagnosis Code(s): --- Professional --- K44.9 K31.89 Z98.890 R10.13 CPT copyright 2020 [employer]. All rights reserved. Attending Participation: I personally performed the entire procedure. Scope In: 10:40:19 AM Scope Out: 10:50:37 AM MD Marques Rainey MD 07/14/2023 10:53:09 AM This report has been signed electronically by Marques Bradley MD Number of Addenda: 0 Note Initiated On: 07/14/2023 10:24 AM [facility] 07-14-2023 Nurse Note 1121: Dr. Mehrdad Carter paged : Patient Constantino Cardoso in post bed 10: Complaining of 10/10 abdominal pain (gas), mild nausea. Any further orders? Thanks! Mari Spaulding RN BSN AMBULATORY PATIENT EDUCATION NOTE TOPIC: GI PROCEDURES: Esophagogastroduodenoscopy (EGD) with or without biopies based on clinical findings, removal of polyps or lesions, for control of bleeding, dilation (any means), imaging, tube placement READINESS TO LEARN INSTRUCTION PROVIDED TO: Patient, readness to learn accessed prior to procedure and Family member COGNITIVE ABILITY: Alert and oriented PTED MOTIVATION TO LEARN: Interested FAMILY SUPPORT: High - Very involved in pt care IPATIENT LEARNS BEST BY: Individual Instruction Written Instruction - Hand-outs Verbal Instruction FACTORS AFFECTING LEARNING: None PHYSICAL LIMITATIONS AFFECTING LEARNING: None LEARNING RESPONSE METHOD OF INSTRUCTION: Individual instruction PATIENT / FAMILY RESPONSE: Verbalizes understanding of: WORSENING CONDITION-Signs and symptoms of a worsening condition that warrant a call to the physician FOLLOW-UP PLAN: Patient instructed to call with any further issues Recommend - Recommend continued instruction and follow up as directed Contact information given. SUPPLEMENTAL MATERIAL: Procedure Discharge Instructions REFERRAL (RECOMMENDATION): None Electronically Signed By: Mónica Spaulding RN BSN PRE OP LEARNING ASSESSMENT PROCEDURE/SURGERY: GI PROCEDURES: EGD and ESU READINESS TO LEARN COGNITIVE ABILITY: Alert and oriented MOTIVATION TO LEARN: Eager Interested FAMILY SUPPORT: High - Very involved in pt care PATIENT LEARNS BEST BY: Individual Instruction Written Instruction - Hand-outs Verbal Instruction FACTORS AFFECTING LEARNING: None PHYSICAL LIMITATIONS AFFECTING LEARNING: None Electronically Signed By: Candace Jaramillo RN In Department: GASTROENTEROLOGY documented in this encounter [facility] 07-13-2023 Note HNO ID: [id number] Author: Brennen Shaw, PhD Service: ? Author Type: Physician Type: Progress Notes Filed: 07/19/2023 10:07 AM Note Text: [facility] BARIAT[facility] SURGERY BEHAVIORAL HEALTH EVALUATION DATE OF SERVICE: July 13, 2023 TIME OF SERVICE: 2:10 PM-3:29 PM COST CENTER: [facility] CPT CODE: - 50010 Brief Emotional/Behavioral Assessment with scoring/documentation - [id number] Virtual Psych Diagnostic Eval BILLING CODE: ENDO PSYL MAIN 64134/Marco DATE OF FIRST SERVICE THIS CYCLE: July 13, 2023 SESSION #: 1 BMI Surgical Pathway Visit type: Bariatric Surgeon Visit I have communicated my name and active licensure. The patient's identity and physical location were verified at the time of this visit. Either the patient or their legal textiles sales representative has been informed of the risks and benefits of -- and alternatives to -- treatment through a remote evaluation and consents to proceed with the evaluation remotely. Zoom for Healthcare IDENTIFYING INFORMATION: Ms. Constantino Cardoso is a 53 year old female. She was referred by Dr. Bradley. Ms. Cardoso is seeking potential surgery for gastroparesis. She had a hiatal hernia that was operated on in 2019 at an OSH and she stated today They didn't put my stomach back in the right place. COLLATERAL PARTIES PRESENT: none MOTIVATION FOR SURGERY / UNDERSTANDING OF PROCEDURE / EXPECTATIONS: Ms. Cardoso notes she is motivated for surgery by pain and improve quality of life. The patient has a fair understanding of the surgery, risks, and benefits. She has talked with other people who have undergone the procedure (jail Specific areas of understanding that should be addressed include risks associated with surgery and behavioral changes necessary. The patient has not attended a weight loss surgery support group. The patient expects to lose ?? lbs. following surgery over ?? Months; primarily focused on feeling better physically Other expectations include improvement in health, living longer, and decreased medications. Educated patient regarding expected weight loss after surgical procedure and timeline of weight loss/surgery recovery. CAPACITY TO CONSENT: Ms. Cardoso evidences the following concerns regarding capacity to consent: none noted. MEDICAL PROBLEMS ACTIVE PROBLEM LIST Hiatal Hernia Morbid Obesity (Hcc) Mitral valve prolapse Reflux Past surgeries? Yes. PAST SURGICAL HISTORY Procedure Laterality Date CHOLECYSTECTOMY HYSTERECTOMY HH repair History of psychological complications post-surgery? No MEDICATIONS Current Outpatient Medications Medication Sig dicyclomine (BENTYL) 20 mg tablet Take 20 mg by mouth before meals and at bedtime. OXcarbazepine (TRILEPTAL) 150 mg tablet Take 150 mg by mouth twice daily. omeprazole (PRILOSEC) 40 mg capsule Take 40 mg by mouth once daily. ondansetron (ZOFRAN) 8 mg tablet Take 8 mg by mouth every 8 hours as needed for nausea/vomiting. ciprofloxacin HCl (CIPRO) 500 mg tablet LIDOCAINE VISCOUS 2 % solution metoclopramide HCl (REGLAN) 10 mg tablet metroNIDAZOLE (FLAGYL) [address] (PROTONIX) 40 mg tablet promethazine (PHENERGAN) 25 mg tablet No current facility-administered medications for this visit. Medications were reviewed with patient. ALLERGIES ALLERGIES Allergen Reactions Flexeril [Cyclobenz* Swelling Penicillin Swelling EATING/WEIGHT HISTORY: Ms. Cardoso was average weight as a child. First at age 15 and was able to get back to pre- weight of ~100 lbs. Her weight at age 18 was 110 lbs. Started gaining weight at age 35. Heaviest weight was 220 lbs (age 35). Current medical problems (reflux, dysphagia) all occurred after HH repair in 2019. The patient reports a family history of obesity. The patient's current weight is 194 lbs. Her BMI is 30.38 kg/m2. The patient denies a history of laxative/diuretic use. The patient endorses a history of vomiting to lose weight (in 20's, then stopped on own when daughter caught her) The patient denies a history of an eating disorder. She has not had treatment for eating disorders in the past. The most pt has lost is 40+ lbs using Unintended d/t unable to eat prior to HH repair. Patient reports eating 1 small meals/day; eating is dictated by pain levels and what she can or cannot tolerate. Problem Food/s: fried chicken, Velveeta shells and cheese Eats out: 1x/month Grocery Shopping: patient and Cooking: and patient The patient notes coffee use of 0-2 cups/day. The patient notes tea use of 1 cup/week. Soda pop usage is occ regular soda. BINGE EATING ASSESSMENT: A. Recurrent episodes of binge eating. An episode is characterized by: 1. Eating a larger amount of food than normal during a short period of time (within any two hour period): Sometimes 2. Lack of control over eating during the binge episod (more content not included)... [facility] 05-27-2023 Miscellaneous Notes BMI SPECIALTY CARE COORDINATION TELEPHONE ENCOUNTER Pt contacted today regarding testing ordered when she had a consult with Dr Bradley. Manometry was normal and her GES was severely delayed. Reviewed results and will discuss with if POP is the next plan of care. Will update pt. Pt agreed with plan. documented in this encounter [facility] 05-26-2023 Note HNO ID: [id number] Author: Nabil Bell RT(R) Service: Nuclear Medicine Author Type: Technologist Type: Progress Notes Filed: 05/26/2023 7:18 AM Note Text: RADIOLOGY SERVICE PROGRESS NOTE SERVICE DATE: 05/26/2023 SERVICE TIME: 7:17 AM PATIENT IDENTITY VERIFICATION COMPLETED USING TWO (2) STANDARD IDENTIFIERS: Name and Date of confirmed by patient verbally FALL SCREENING: Has the patient had 2 falls in the last year or 1 fall with injury or currently using an Ambulatory Assistive Device (Walker, Cane, Wheelchair, Crutches, etc.)? No PATIENT GENDER DATA: .female : No ALLERGIES: Reviewed and unchanged MEDICATIONS REVIEWED: No PATIENT RELEVANT IMPLANT DATA REVIEWED: Not Applicable CREATININE: No results found for: CREAT , EGFROTH , EGFRAA P.O.C.T. RESULTS: N/A May 26, [address] PERFORMED: No IV SITE: Ambulatory: Not applicable POST EXAM PIV STATUS: Not applicable PROCEDURE TYPE: NM GET: 1.1 mCi Tc99m SULFUR COLLOID was administered orally via 4 ounces of Egg Beaters,2 pieces of toast, 1 ounce of jelly with 8 ounces of water orally ADMINISTRATION TIME: 715 PATIENT DISCHARGED TO: Ambulatory patient, left [place] department area. A Diagnostic radioactive procedure has taken place, with no further precautions necessary other than routine body substance precautions. More information regarding radiation safety can be found using this link: [email or web address] SIGNATURE: RT Charmaine(R) PATIENT NAME: Constantino Cardoso DATE: May 26, 2023 TIME: 7:17 AM PAGER/CONTACT #: [facility] 05-25-2023 Note HNO ID: [id number] Author: Pedro Gonzalez LPN Service: ? Author Type: LICENSED NURSE Type: Progress Notes Filed: 05/25/2023 4:15 PM Note Text: Name: Constantino Cardoso [facility]#: [id number] Date: 05/25/2023 ESOPHAGEAL MANOMETRY TEST Indication: Nausea Pain Assessment: No pain is present. The patient has been NPO since last evening. A local anesthetic 1.5 cc 2% Viscous Lidocaine was instilled into the left nares. The patient was intubated the left nares using a 36 sensor high resolution circumferential solid state manometry catheter The esophageal manometry test was completed. The patient tolerated the test without difficulty. .Pedro Gonzalez LPN [facility] 05-25-2023 History of Present illness Narrative Name: Constantino Cardoso [facility]#: [id number] Date: 05/25/2023 ESOPHAGEAL MANOMETRY TEST Indication: Nausea Pain Assessment: No pain is present. The patient has been NPO since last evening. A local anesthetic 1.5 cc 2% Viscous Lidocaine was instilled into the left nares. The patient was intubated the left nares using a 36 sensor high resolution circumferential solid state manometry catheter The esophageal manometry test was completed. The patient tolerated the test without difficulty. .Pedro Gonzalez LPN documented in this encounter [facility] 05-16-2023 Miscellaneous Notes BMI SPECIALTY CARE COORDINATION TELEPHONE ENCOUNTER Pt. was seen in clinic and was ordered a manometry for dysphagia and also a GES. Pt s/p RYGB 2018 and had a HHR in 2018. C/O bloating, and abdominal pain with or without food. Also has some c/o reflux. Appts made and scheduled for pt. Instructions reviewed along with medications to hold if needed prior to testing. Pt was sent MY CHART sign up to mobile phone as well. Pt verbalized understanding and will contact the office with further questions. Will discuss with team if GES still indicated after a gastric bypass. documented in this encounter [facility] 05-06-2023 Note HNO ID: [id number] Author: Marques Bradley MD Service: ? Author Type: Physician Type: Progress Notes Filed: 05/12/2023 8:15 AM Note Text: Consultation requested by Dr. Martinez for an opinion regarding GP. My final recommendations will be communicated back to the requesting physician by way of shared Medical record or letter to requesting physician via US mail. Gastroparesis Cardinal Symptom Index 1. nausea 3 2. retching 4 3. vomiting 3 4. stomach fullness 4 5. not able to finish a normal-sized meal 5 6. feeling excessively full after meals 5 7. loss of appetite 5 8. bloating (feeling like you need to loosen your clothes) 4 9. stomach or belly visibly large 5 Scale (0-none; 1-very mild; 2-mild; 3-moderate; 4-severe; 5-very severe) Section of Advanced Laparoscopic Surgery, Bariatric Surgery, and Surgical Endoscopy Consultation May 06, 2023 Constantino Cardoso 52 year old This consult was requested by Guillermo Carbajal and my final recommendations will be communicated to the requesting health care provider by way of the shared medical record for internal providers or letter via the [employer] for external providers. Chief Complaint: dysphagia History of Present Illness: Constantino Cardoso is a 52 year old year old female with PMH of mitral valve prolapse, GERD,migraines s/p RYGB 2018 , hiatal hernia repair 2019 reuiring EGD balloon dilatation, presented with the complain of dysphagia, feeling bloated PAST MEDICAL HISTORY Diagnosis Date Migraine Mitral valve prolapse PAST SURGICAL HISTORY Procedure Laterality Date CHOLECYSTECTOMY HYSTERECTOMY Current Outpatient Medications Medication Sig Dispense Refill dicyclomine (BENTYL) 20 mg tablet Take 20 mg by mouth before meals and at bedtime. OXcarbazepine (TRILEPTAL) 150 mg tablet Take 150 mg by mouth twice daily. omeprazole (PRILOSEC) 40 mg capsule Take 40 mg by mouth once daily. ondansetron (ZOFRAN) 8 mg tablet Take 8 mg by mouth every 8 hours as needed for nausea/vomiting. ciprofloxacin HCl (CIPRO) 500 mg tablet LIDOCAINE VISCOUS 2 % solution metoclopramide HCl (REGLAN) 10 mg tablet metroNIDAZOLE (FLAGYL) [address] (PROTONIX) 40 mg tablet promethazine (PHENERGAN) 25 mg tablet No current facility-administered medications for this visit. ALLERGIES Allergen Reactions Flexeril [Cyclobenz* Swelling Penicillin Swelling No family history on file. Social History Tobacco Use Smoking status: Former Years: 25 Types: Cigarettes Quit date: 2011 Years since quittin.6 Smokeless tobacco: Never Tobacco comments: still smokes Substance Use Topics Alcohol use: Yes Comment: social Review of Systems: GENERAL: No weight loss, malaise or fevers RESPIRATORY: Negative for cough, hemoptysis, wheezing, COPD, dyspnea or shortness of breath CARDIOVASCULAR: Negative for chest pain, leg swelling, hypertension, CHF or palpitations GI: No nausea, vomiting, or diarrhea and Positive for nausea dysphagia : No history of dysuria, frequency or incontinence MUSCULOSKELETAL: Negative for joint pain or swelling, back pain or muscle pain Physical Exam: BP 138/93 Pulse 83 Ht 164.9 cm (5' 4.93 ) Wt 88.3 kg (194 lb 11.2 oz) LMP 02/26/1997 BMI 32.47 kg/m? General Appearance: Well appearing, alert, in no acute distress, well-hydrated, well nourished. Psych: ORIENTATION: normal to time place, person and situation AFFECT AND MOOD: Normal Lungs: Lungs clear to auscultation. No wheezing, rhonchi, rales. Extremities: No deformities, edema, skin discoloration, clubbing or cyanosis. Good capillary refill. Musculoskeletal: no weakness, no balance deficits, no coordination deficitsGAIT: Normal ASSIST DEVICE: None Abdomen: Normal abdominal exam, Abdomen soft, non-tender. All outside imaging and records were reviewed with the patient during consultation. Assessment Assessment and Plan: Constantino Cardoso is a 52 year old year old female with PMH of mitral valve prolapse, GERD,migraines s/p RYGB 2017 , hiatal hernia repair 2018 reuiring EGD balloon dilatation, presented with the complain of dysphagia, feeling bloated with the concern of gastroparesis - Manometry study - Gastric emptying study Attending Note I evaluated the patient and personally participated in the cottrell components. I agree with the resident's findings and plan as documented and have discussed the case and management of the patient's care with the resident. Signature: Marques Bradley MD Date: 05/12/2023 Time: 8:15 AM [facility] 05-02-2023 Miscellaneous Notes BMI SPECIALTY CARE COORDINATION TELEPHONE ENCOUNTER Chief complaint & duration dysphagia. Type of procedure: hernia repair hiatal with Dr. MORTENSEN in [place] February of 2019. Sending OP notes Nursing assessment (subjective/objective) . pain in chest area and getting worse Went to [facility] March 2023 who told her she needed a stent in her heart..but her c/o were difficulty swallowing and sent pt home and referred her to [facility] and was there in the hospital for almost a week EGD March 30 and dilated pt. it has lasted about a month and symptoms are starting again. GES ? not sure if it was a 4hr breath test unsure h/o bowel obstructions that started after HHR and no surgery indicated for bowel obstructions last episode was December 2022 Last weight 198 pounds 2 wks ago. Recommendation: MD appt after records obtained documented in this encounter [facility] 04-26-2023 Miscellaneous Notes [facility] COORDINATION TELEPHONE ENCOUNTER Second attempt to contact this pt. Pt has upcoming information, and unable to complete any chart prep, history, symptoms, testing etc. LVM and call back number. documented in this encounter [facility] 04-21-2023 Evaluation note Encounter Date Diagnosis Assessment Notes Apr, Esophageal dysmotility (ICD-10 - K22.4) Apr, Esophageal spasm (ICD-10 - K22.4) Apr, Nausea & vomiting (ICD-10 - R11.2) Patinet reports that she still has nausea but no vomiting Patient reports that she is to see Dr. Strong at [facility] Patient is to start dicyclomine 20 mg 4 times daily sent to [facility] today RTO 6 weeks Apr, Dysphagia (ICD-10 - R13.10) [facility] Other 08-14-2023 Miscellaneous Notes* Telephone Encounter - Evelyn Black RN - 04/18/2023 2:13 PM EDT [facility] COORDINATION TELEPHONE ENCOUNTER Contacted pt regarding a referral from Dr Martinez's office. LVM and call back number. [facility] Miscellaneous Notes* Telephone Encounter - Yancy Lopez - 04/07/2023 1:15 PM EDT Referral rec'd [facility] Evaluation + Plan note Extracted from: Title:ED Note Author:Khris Patton DOtj Ibrahim Date :02/19/23 Right wrist sprain (S63.501A : Unspecified sprain of right wrist, initial encounter) Orders: acetaminophen-hydrocodone, 1 tab(s), Tab, Oral, Once, Stop date 02/19/23 1:01:00 EDT, STAT, Start date 02/19/23 1:01:00 EDT acetaminophen-hydrocodone, 1 EA, Tab, Oral, Once, Stop date 02/19/23 1:21:00 EDT, STAT, Start date 02/19/23 1:21:00 EDT naproxen, 500 mg = 1 tab(s), Oral, BID, PRN for pain, # 20 tab(s), Refills(s) 0, Pharmacy: [facility]/pharmacy #[id number], 170, cm, 02/19/23 0:56:00 EDT, Height/Length Dosing, 90.2, kg, 02/19/23 0:56:00 EDT, Weight Dosing XR Elbow 3+ Views Right XR Wrist 3+ Views Right [facility]06-17-2023 Hospital Discharge instructions Patient Education 02/19/2023 01:41:18 Wrist Sprain, Adult Wrist Sprain, Adult A wrist sprain is a stretch or tear in the strong tissues that connect the wrist bones to each other. These strong tissues are called ligaments. There are three types of wrist sprains: Grade 1. The ligament is stretched more than normal. There may be a minor amount of wrist pain. Grade 2. The ligament is partially torn. You may be able to move your wrist, but not very much. There may be a moderate amount of wrist pain. Grade 3. The ligament or ligaments are completely torn. You may find it difficult to move your wrist even a little. There may be a significant amount of wrist pain. What are the causes? This condition may be caused by using the wrist too much during sports, exercise, or work. It can also happen due to a fall or during an accident. What increases the risk? You are more likely to develop this condition if: You had a previous wrist or arm injury. You have poor wrist strength and flexibility. You play contact sports, such as football or soccer. You participate in sports that may result in a fall, such as skateboarding, biking, skiing, or snowboarding. You do not exercise regularly. You use exercise equipment that does not fit well. What are the signs or symptoms? Symptoms of this condition include: Pain in the wrist, arm, or hand. Swelling or bruised skin near the wrist, hand, or arm. The skin may look yellow or blue. Stiffness or trouble moving the hand. Hearing a noise, like a pop or a snap, at the time of injury, or feeling a tear at the time of the injury. A warm feeling in the skin around the wrist. How is this diagnosed? This condition is diagnosed with a physical exam. Sometimes an X-ray is taken to make sure a bone did not break. You may also have an MRI of your wrist to check for torn ligaments. How is this treated? This condition is treated by resting and applying ice to your wrist. Additional treatment may include: Taking medicine for pain and inflammation. Wearing a splint, brace, or cast for a short period of time to keep your wrist from moving (immobilized). Doing exercises to strengthen and stretch your wrist. Having surgery. This may be done if the ligament is completely torn. Follow these instructions at home: If you have a splint or brace: Wear the splint or brace as told by your health care provider. Remove it only as told by your health care provider. Loosen it if your fingers tingle, become numb, or turn cold and blue. Keep it clean. If the splint or brace is not waterproof: ?Do not let it get wet. ?Cover it with a watertight covering when you take a bath or a shower. If you have a cast: Do not put pressure on any part of the cast until it is fully hardened. This may take several hours. Do not stick anything inside the cast to scratch your skin. Doing that increases your risk of infection. Check the skin around the cast every day. Tell your health care provider about any concerns. You may put lotion on dry skin around the edges of the cast. Do not put lotion on the skin underneath the cast. Keep it clean. If the cast is not waterproof: ?Do not let it get wet. ?Cover it with a watertight covering when you take a bath or shower. Managing pain, stiffness, and swelling If directed, put ice on the injured area. To do this: ?If you have a removable splint or brace, remove it as told by your health care provider. ?Put ice in a plastic bag. ?Place a towel between your skin and the bag or between the splint or cast and the bag. ?Leave the ice on for 20 minutes, 2 3 times a day. ?Remove the ice if your skin turns bright red. This is very important. If you cannot feel pain, heat, or cold, you have a greater risk of damage to the area. Move your fingers often to reduce stiffness and swelling. Raise (elevate) the injured area above the level of your heart while you are sitting or lying down. Activity Rest your wrist as told by your health care provider. Do not do things that cause pain. Ask your health care provider when it is safe to drive if you have a splint, brace, or cast on yourwrist. Do exercises as told by your health care provider. Return to your normal activities as told by your health care provider. Ask your health care provider what activities are safe for you. General instructions Take bkes-sde-xlrnfoa and prescription medicines only as told by your health care provider. Do not use any products that contain nicotine or tobacco, such as cigarettes, e- cigarettes, and chewing tobacco. These can delay healing. If you need help quitting, ask your health care provider. Keep all follow-up visits. This is important. Contact a health care provider if: Your pain, bruising, or swelling gets worse. Your skin becomes red, gets a rash, or has open sores. Your pain does not get better or it gets worse. Get help right away if: You have a new or sudden sharp pain in the hand, arm, or wrist. You have tingling or numbness in your hand. Your fingers turn white, very red, or cold and blue. You cannot move your fingers. Summary A wrist sprain is damage to ligaments in your wrist. Wrist sprains can range from mild to severe. Return to your normal activities as told by your health care provider. Ask your health care provider what activities are safe for you. You may need to wear a splint, brace, or cast for a short period of time. This information is not intended to replace advice given to you by your health care provider. Make sure you discuss any questions you have with your health care provider. Document Revised: 12/29/2020 Document Reviewed: 12/29/2020 Self-A-r-T Patient Education 2022 [employer]. Follow Up Care 02/19/2023 00:51:16 With:JUDI YOUSSEF Address: [address] [place] [address]- [phone] Business (1) When:02/22/2023 Comments:Take the pain medication as prescribed as needed for pain. Please follow-up with your primary care doctor in the next 2 to 3 days for further evaluation management. Please return to the ED for any new or worsening symptoms or [facility]08-10-2022 Hospital Discharge instructions Patient Education 04/14/2022 15:31:37 Nausea and Vomiting, Adult Nausea and Vomiting, Adult Nausea is the feeling that you have an upset stomach or that you are about to vomit. Vomiting is when stomach contents are thrown up and out of the mouth as a result of nausea. Vomiting can make you feel weak and cause you to become dehydrated. Dehydration can make you feel tired and thirsty, cause you to have a dry mouth, and decrease how often you urinate. Older adults and people with other diseases or a weak disease-fighting system (immune system) are at higher risk for dehydration. It is important to treat your nausea and vomiting as told by your health care provider. Follow these instructions at home: Watch your symptoms for any changes. Tell your health care provider about them. Follow these instructions to care for yourself at home. Eating and drinking Take an oral rehydration solution (ORS). This is a drink that is sold at pharmacies and retail stores. Drink clear fluids slowly and in small amounts as you are able. Clear fluids include water, ice chips, low-calorie sports drinks, and fruit juice that has water added (diluted fruit juice). Eat bland, aahl-sa-hfixao foods in small amounts as you are able. These foods include bananas, applesauce, rice, lean meats, toast, and crackers. Avoid fluids that contain a lot of sugar or caffeine, such as energy drinks, sports drinks, and soda. Avoid alcohol. Avoid spicy or fatty foods. General instructions Take crfg-mci-yxtfljr and prescription medicines only as told by your health care provider. Drink enough fluid to keep your urine pale yellow. Wash your hands often using soap and water. If soap and water are not available, use hand architecture intern. Make sure that all people in your household wash their hands well and often. Rest at home while you recover. Watch your condition for any changes. Breathe slowly and deeply when you feel nauseated. Keep all follow-up visits as told by your health care provider. This is important. Contact a health care provider if: Your symptoms get worse. You have new symptoms. You have a fever. You cannot drink fluids without vomiting. Your nausea does not go away after 2 days. You feel light-headed or dizzy. You have a headache. You have muscle cramps. You have a rash. You have pain while urinating. Get help right away if: You have pain in your chest, neck, arm, or jaw. You feel extremely weak or you faint. You have persistent vomiting. You have vomit that is bright red or looks like black coffee grounds. You have bloody or black stools or stools that look like tar. You have a severe headache, a stiff neck, or both. You have severe pain, cramping, or bloating in your abdomen. You have difficulty breathing, or you are breathing very quickly. Your heart is beating very quickly. Your skin feels cold and clammy. You feel confused. You have signs of dehydration, such as: ?Dark urine, very little urine, or no urine. ?Cracked lips. ?Dry mouth. ?Sunken eyes. ?Sleepiness. ?Weakness. These symptoms may represent a serious problem that is an emergency. Do not wait to see if the symptoms will go away. Get medical help right away. Call your local emergency services (911 in the [place] Do not drive yourself to the hospital. Summary Nausea is the feeling that you have an upset stomach or that you are about to vomit. As nausea getsworse, it can lead to vomiting. Vomiting can make you feel weak and cause you to become dehydrated. Follow instructions from your health care provider about eating and drinking to prevent dehydration. Take pjpf-vpo-edsmqrr and prescription medicines only as told by your health care provider. Contact your health care provider if your symptoms get worse, or you have new symptoms. Keep all follow-up visits as told by your health care provider. This is important. This information is not intended to replace advice given to you by your health care provider. Make sure you discuss any questions you have with your health care provider. Document Released: 08/22/2006 Document Revised: 12/14/2019 Document Reviewed: 01/30/2019 Self-A-r-T Patient Education 2020 [employer]. Follow Up Care 01/28/2022 13:58:23 With:Monique Marquez CNP Address: When:3 months [facility] 05-26-2022 Hospital Discharge instructions Patient Education 01/28/2022 13:23:59 Pearce's Esophagus Pearce's Esophagus Pearce's esophagus occurs when the tissue that lines the esophagus changes or becomes damaged. Theesophagus is the tube that carries food from the throat to the stomach. With Pearce's esophagus, the cells that line the esophagus are replaced by cells that are similar to the lining of the intestines (intestinal metaplasia). Pearce's esophagus itself may not cause any symptoms. However, many people who have Pearce's esophagus also have gastroesophageal reflux disease (GERD), which may cause symptoms such as heartburn. Over time, a few people with this condition may develop cancer of the esophagus. Treatment may include medicines, procedures to destroy the abnormal cells, or surgery. What are the causes? The exact cause of this condition is not known. In some cases, the condition develops from damage to the lining of the esophagus caused by GERD. GERD occurs when stomach acids flow up from the stomach into the esophagus. Frequent symptoms of GERD may cause intestinal metaplasia or cause cell changes (dysplasia). What increases the risk? You are more likely to develop this condition if you: Have GERD. Are male. Are . Are obese. Are older than 50. Have a hiatal hernia. This is a condition in which part of your stomach bulges into your chest. Smoke. What are the signs or symptoms? People with Pearce's esophagus often have no symptoms. However, many people with this condition also have GERD. Symptoms of GERD may include: Heartburn. Difficulty swallowing. Dry cough. How is this diagnosed? This condition may be diagnosed based on: Results of an upper gastrointestinal endoscopy. For this exam, a thin, flexible tube with a light and a camera on the end (endoscope) is passed down your esophagus. Your health care provider can viewthe inside of your esophagus during this procedure. Results of a biopsy. For this procedure, several tissue samples are removed (biopsy) from your esophagus. They are then checked for intestinal metaplasia or dysplasia. How is this treated? Treatment for this condition may include: Medicines (proton pump inhibitors, or PPIs) to decrease or stop GERD. Periodic endoscopic exams to make sure that cancer is not developing. A procedure or surgery for dysplasia. This may include: ?Removal or destruction of abnormal cells. ?Removal of part of the esophagus (esophagectomy). Follow these instructions at home: Eating and drinking Eat more fruits and vegetables. Avoid fatty foods. Eat small, frequent meals instead of large meals. Avoid foods that cause heartburn. These foods include: ?Coffee and alcoholic drinks. ?Tomatoes and foods made with tomatoes. ?[place] or spicy foods. ?Chocolate and peppermint. Do not drink alcohol. General instructions Take sfro-knt-ofqexws and prescription medicines only as told by your health care provider. Do not use any products that contain nicotine or tobacco, such as cigarettes and e-cigarettes. If you need help quitting, ask your health care provider. If you are being treated for GERD, make sure you take medicines and follow all instructions as toldby your health care provider. Keep all follow-up visits as told by your health care provider. This is important. Contact a health care provider if: You have heartburn or GERD symptoms. You have difficulty swallowing. Get help right away if: You have chest pain. You are unable to swallow. You vomit blood or material that looks like coffee grounds. Your stool (feces) is bright red or dark. Summary Pearce's esophagus occurs when the tissue that lines the esophagus changes or becomes damaged. Pearce's esophagus may be diagnosed with an upper gastrointestinal endoscopy and a biopsy. Treatment may include medicines, procedures to remove abnormal cells, or surgery. Follow your health care provider's instructions about what to eat and drink, what medicines to take, and when to call for help. This information is not intended to replace advice given to you by your health care provider. Make sure you discuss any questions you have with your health care provider. Document Released: 11/11/2004 Document Revised: 12/18/2018 Document Reviewed: 12/18/2018 Self-A-r-T Patient Education 2020 [employer]. Follow Up Care 01/13/2022 12:36:01 With:Monique Marquez CNP Address: When:3 months [facility] 05-09-2022 Hospital Discharge instructions Patient Education 01/11/2022 09:56:58 Endoscopy, Care After Procedure [facility] ([facility]UST[facility]) Endoscopy Care After Procedure Please read the instructions outlined below and refer to this sheet in the next few weeks. These discharge instructions provide you with general information on caring for yourself after you leave thehospital. Your doctor may also give you specific instructions. While your treatment has been planned according to the most current medical practices available, unavoidable complications occasionally occur. If you have any problems or questions after discharge, please call your doctor. ACTIVITY You may resume your regular activity but move at a slower pace for the next 24 hours. Take frequent rest periods for the next 24 hours. Walking will help expel (get rid of) the air and reduce the bloated feeling in your abdomen. No driving for 24 hours (because of the anesthesia (medicine) used during the test). You may shower. Do not sign any important legal documents or operate any machinery for 24 hours (because of the anesthesia used during the test). NUTRITION Drink plenty of fluids. You may resume your normal diet. Begin with a light meal and progress to your normal diet. Avoid alcoholic beverages for 24 hours or as instructed by your caregiver. MEDICATIONS You may resume your normal medications unless your caregiver tells you otherwise. WHAT YOU CAN EXPECT TODAY You may experience abdominal discomfort such as a feeling of fullness or gas pains. FOLLOW-UP Your doctor will discuss the results of your test with you. SEEK IMMEDIATE MEDICAL ATTENTION IF ANY OF THE FOLLOWING OCCUR: Excessive nausea (feeling sick to your stomach) and/or vomiting. Severe abdominal pain and distention (swelling). Trouble swallowing. Temperature over 100 F (37.8 C). Rectal bleeding or vomiting of blood. Document Released: 04/05/2005 Document Re-Released: 02/13/2007 ExitCare Patient Information 2010 [employer]. 01/11/2022 09:56:58 Pearce's Esophagus Pearce's Esophagus Pearce's esophagus occurs when the tissue that lines the esophagus changes or becomes damaged. Theesophagus is the tube that carries food from the throat to the stomach. With Pearce's esophagus, the cells that line the esophagus are replaced by cells that are similar to the lining of the intestines (intestinal metaplasia). Pearce's esophagus itself may not cause any symptoms. However, many people who have Pearce's esophagus also have gastroesophageal reflux disease (GERD), which may cause symptoms such as heartburn. Over time, a few people with this condition may develop cancer of the esophagus. Treatment may include medicines, procedures to destroy the abnormal cells, or surgery. What are the causes? The exact cause of this condition is not known. In some cases, the condition develops from damage to the lining of the esophagus caused by GERD. GERD occurs when stomach acids flow up from the stomach into the esophagus. Frequent symptoms of GERD may cause intestinal metaplasia or cause cell changes (dysplasia). What increases the risk? You are more likely to develop this condition if you: Have GERD. Are male. Are . Are obese. Are older than 50. Have a hiatal hernia. This is a condition in which part of your stomach bulges into your chest. Smoke. What are the signs or symptoms? People with Pearce's esophagus often have no symptoms. However, many people with this condition also have GERD. Symptoms of GERD may include: Heartburn. Difficulty swallowing. Dry cough. How is this diagnosed? This condition may be diagnosed based on: Results of an upper gastrointestinal endoscopy. For this exam, a thin, flexible tube with a light and a camera on the end (endoscope) is passed down your esophagus. Your health care provider can viewthe inside of your esophagus during this procedure. Results of a biopsy. For this procedure, several tissue samples are removed (biopsy) from your esophagus. They are then checked for intestinal metaplasia or dysplasia. How is this treated? Treatment for this condition may include: Medicines (proton pump inhibitors, or PPIs) to decrease or stop GERD. Periodic endoscopic exams to make sure that cancer is not developing. A procedure or surgery for dysplasia. This may include: ?Removal or destruction of abnormal cells. ?Removal of part of the esophagus (esophagectomy). Follow these instructions at home: Eating and drinking Eat more fruits and vegetables. Avoid fatty foods. Eat small, frequent meals instead of large meals. Avoid foods that cause heartburn. These foods include: ?Coffee and alcoholic drinks. ?Tomatoes and foods made with tomatoes. ?[place] or spicy foods. ?Chocolate and peppermint. Do not drink alcohol. General instructions Take koty-uyf-ruqlmvy and prescription medicines only as told by your health care provider. Do not use any products that contain nicotine or tobacco, such as cigarettes and e-cigarettes. If you need help quitting, ask your health care provider. If you are being treated for GERD, make sure you take medicines and follow all instructions as toldby your health care provider. Keep all follow-up visits as told by your health care provider. This is important. Contact a health care provider if: You have heartburn or GERD symptoms. You have difficulty swallowing. Get help right away if: You have chest pain. You are unable to swallow. You vomit blood or material that looks like coffee grounds. Your stool (feces) is bright red or dark. Summary Pearce's esophagus occurs when the tissue that lines the esophagus changes or becomes damaged. Pearce's esophagus may be diagnosed with an upper gastrointestinal endoscopy and a biopsy. Treatment may include medicines, procedures to remove abnormal cells, or surgery. Follow your health care provider's instructions about what to eat and drink, what medicines to take, and when to call for help. This information is not intended to replace advice given to you by your health care provider. Make sure you discuss any questions you have with your health care provider. Document Released: 11/11/2004 Document Revised: 12/18/2018 Document Reviewed: 12/18/2018 Self-A-r-T Patient Education 2020 [employer]. Follow Up Care 12/03/2021 15:32:26 With:Anai REAGAN Address: [address] [place] [address] Business (1) When:1 to 2 weeks Comments:Call for any problems. [facility]03-30-2022 Hospital Discharge instructions Follow Up Care 12/02/2021 10:32:32 With:JHOANA MELGOZA PA-C, URL Address: [address] [place] [address] When: Unknown [facility] Evaluation + Plan note Future Appointments Appointment Date:01/11/2022 09:40:00 AM Scheduled Provider: Location:[facility] Appointment Type:Surgery FT [facility] Evaluation + Plan note Future Appointments Appointment Date:04/14/2022 03:00:00 PM Scheduled Provider:Monique Marquez CNP Location:[facility] Appointment Type:[facility] Follow Up Future Scheduled Tests Radiology* NM Gastric Emptying Study 01/28/22 [facility] Evaluation + Plan note Future Appointments Appointment Date:04/14/2022 03:00:00 PM Scheduled Provider:Monique Marquez CNP Location:[facility] Appointment Type:BAD [facility] Future Appointments Appointment Date:04/20/2022 12:00:00 PM Scheduled Provider: [facility] Type:US Abdominal/Pelvis () Appointment Date:06/02/2022 09:45:00 AM Scheduled Provider:Anai REAGAN MD Location:[facility] Appointment Type:[facility] Follow Up Future Scheduled Tests Laboratory* Fecal WBC Lactoferrin 04/14/22 * Giardia lamblia, Direct Detection EIA 04/14/22 * O & P Exam, Routine 04/14/22 * Clostridium difficile by PCR 04/14/22 * Enteric Panel by PCR 04/14/22 * CBC w/ Auto Diff 04/14/22 * Comprehensive Metabolic Panel 04/14/22 Radiology* US Abdomen Complete 04/20/22 [facility] Evaluation + Plan note Future Appointments Appointment Date:06/02/2022 09:45:00 AM Scheduled Provider:Anai REAGAN MD Location:[facility] Appointment Type:[facility] Follow Up Diagnostic Tests Pending * O & P Exam, Routine 04/29/22 * Giardia lamblia, Direct Detection EIA 04/29/22 [facility]No assessment information available [facility] Work Phone: Evaluation noteNo InformationNos[facility] Eniram Other Evaluation note* Diagnosis Nausea- Primary Nausea alone Dysphagia, unspecified type documented in this encounter [facility] note* Diagnosis Nausea Nausea alone [facility] Dysphagia, unspecified type Gastroparesis History of Ramiro fundoplication Personal history of surgery to other organs [facility]* Diagnosis Gastroparesis- Primary Malnutrition of moderate degree (HCC) Malnutrition of moderate degree Gastro-esophageal reflux disease without esophagitis Esophageal reflux Overweight (BMI 25.0-29.9) Overweight Dietary counseling and surveillance Dietary surveillance and counseling documented [facility] this [facility]* Diagnosis Gastroparesis- Primary documented in this encounter [facility] Narrative - Reported* Type Description Date Medical History mitral valve prolapse Medical History gallstones Medical History Acid reflux Medical History Hiatal Hernia Medical History headache Surgical History hysterectomy Surgical History cholecystectomy Surgical History hiatal hernia repair Hospitalization History see above Hospitalization History kindey infections hospit alized x3 [facility] Other Hospital course Narrative No data available for this section [facility] Discharge instructions No data available for this section [facility] Additional Instructions Follow-up with your primary care doctor Return to ED if develop worsening [facility] Work Phone: Hospital Discharge instructions Additional Instructions If your symptoms return/worsen or you develop any further concerns or symptoms please see your doctor or return to the emergency department immediately. Please be sure to continue follow-up with the communication manager and with your scheduled EGD and further testing.[facility] Work Phone: Progress note No data available for this section [facility])* Diagnostic Procedure Only (Routine) - Authorized Specialty Diagnoses / Procedures Referred By Eileen t Referred To Contact [facility]CTIONAL [facility]AGING Diagnoses Nausea Procedures NM GASTRIC EMPTYING SOLID GASTRIC EMPTYING STUDY Marques Bradley MD [address] [place] [address] Molecular & Functional Imaging [address] [place] [address] Referral ID Status Reason Start Date Expiration Date Visits Requested Visits Authorized [id number] Authorized Auto-Generat ed Referral 05/16/2023 06/14/2024 1 1 * Outpatient Procedure (Routine) - Authorized Specialty Diagnoses / Procedures Referred By Eileen mueller Referred To Contact [facility] Diagnoses Nausea Procedures MANOMETRY ESOPHAGEAL ESOPHAGEAL MOTILITY STUDY W/INTERP&RPT Marques Bradley MD [address] [place] [address] [address] Referral ID Status Reason Start Date Expiration Date Visits Requested Visits Authorized [id number] Authorized Auto-Generat ed Referral 05/16/2023 05/16/2024 1 1 [facility] for referral (narrative)* Outpatient Procedure (Routine) - Closed Specialty Diagnoses / Procedures Referred By Eileen mueller Referred To Contact [facility] Diagnoses Dysphagia, unspecified type Gastroparesis History of Ramiro fundoplication Procedures EGD - THERAPEUTIC, EUS, OR TUBE INTERVENTIONS ESOPHAGOGASTRODUODENOSCOPY TRANSORAL DIAGNOSTIC STOMACH SURGERY PROCEDURE UNLISTED Marques Bradley MD [address] [place] [address] [address] Referral ID Status Reason Start Date Expiration Date V isits Requested Visits Authorized [id number] Closed Auto-Generate d Referral 05/27/2023 05/27/2024 1 1 [facility] for referral (narrative)* Outpatient Procedure (Routine) - Authorized Specialty Diagnoses / Procedures Referred By Eileen t Referred To Contact [facility] Diagnoses Gastroparesis Procedures EGD - THERAPEUTIC, EUS, OR TUBE INTERVENTIONS ESOPHAGOGASTRODUODENOSC OPY TRANSORAL DIAGNOSTIC STOMACH SURGERY PROCEDURE UNLISTED Marques Bradley MD [address] [place] [address] [address] Referral ID Status Reason Start Date Expiration Date Visits Requested Visits Authorized [id number] Authorized Auto-Generat ed Referral 3 07/29/2024 1 1 [facility] for visit Narrative* Outpatient Procedure (Routine) - Closed Specialty Diagnoses / Procedures Referred By Contac t Referred To Contact [facility] Diagnoses Dysphagia, unspecified type Gastroparesis History of Ramiro fundoplication Procedures EGD - THERAPEUTIC, EUS, OR TUBE INTERVENTIONS ESOPHAGOGASTRODUODENOSCOPY TRANSORAL DIAGNOSTIC STOMACH SURGERY PROCEDURE UNLISTED Marques Bradley MD [address] [place] [address] [address] Referral ID Status Reason Start Date Expiration Date V isits Requested Visits Authorized [id number] Closed Auto-Generate d Referral 05/27/2023 05/27/2024 1 1 [facility] Summary Purpose Family History No Family History Records Found Relationship Condition Age at Onset Recorded Date/T daniel father Myocardial infarction Unknown Malignant neoplasm Unknown sister Seizure Unknown Hypertension Unknown Advance Directives No Advanced Directives Records Found Advance Directive Response Recorded Date/ Time Advance Directives No November 23, 2 018 9:23am Advance Directive Response Recorded Date/ Time Advance Directives No November 23, 2 018 10:23am Hospital Course Note MR#: [id number] [facility] Pt. Name: Constantino Cardoso Admitted: 08/13/2019 Discharged: 08/16/2019 Date of : 1970 Physician: Leona Mortensen M.D. DISCHARGE SUMMARY PRIMARY DIAGNOSIS: Partial small-bowel obstruction. SECONDARY DIAGNOSES: 1. History of hiatal hernia repair. 2. History of small-bowel obstruction. 3. History of cholecystectomy. 4. Hypertension. PROCEDURES PERFORMED: During this admission are none. REASON FOR HOSPITAL COURSE AND STAY: The patient is a 49-year-old female, who was transferred to [facility] from [facility] with acute abdominal pain. The pain has started on Tuesday while at work. 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 The pain feels similar to when she was here in April during her stay. During that time, she was told there was nothing left for Dr. Mortensen to do and she has been following up with GI specialist in [place]. She is actually due to have an EGD on August 22, 2019. She has been having nausea, but no vomit (more content not included)... Chief Complaint and Reason for Visit Chief Complaint stomach pain/hx marium Chief Complaint stomach pain/hx marium R10.9 K59.00 Chief Complaint abd pain stomach pian/vomiting Additional Source Comments INFORMATION SOURCE (unrecogn ized section and content) DATE CREATED AUTHOR 06/03/2020 [facility] DATE CREATED AUTHOR AUTHOR'S ORGANIZ ATION 01/17/2023 [facility] DATE CREATED AUTHOR AUTHOR'S ORGANIZ ATION 04/02/2023 [facility] DATE CREATED AUTHOR AUTHOR'S ORGANIZ ATION 05/16/2023 [facility] DATE CREATED AUTHOR AUTHOR'S ORGANIZ ATION 06/11/2023 [facility] DATE CREATED AUTHOR AUTHOR'S ORGANIZ ATION 08/26/2023 [facility] Care Team (unrecognized sect ion and content) Team Status: Inactive Member Role Status Dates Judi Youssef NP-C Primary Care Provider Active Conner Griffith DO Emergency Provider Active Team Status: Active Member Role Status Dates Judi Youssef NP-Paula Primary Care Provider Active Team Status: Inactive Member Role Status Dates Jennie Ayon MD Attending Provider Active Judi Youssef NP-Paula Primary Care Provider Active Team Status: Inactive Member Role Status Dates Judi Youssef NP-C Primary Care Provider Active Pete Thakkar DO Emergency Provider Active Criminal Investigative Agent Relationship Specialty Start Date End Date Joel Alejandra PCP - General Family Medicine 04/26/18 Rafa Rangel [address] [place] [phone] Referring General Surgery 04/26/18 Criminal Investigative Agent Relationship Specialty Start Date End Date Joel Alejandra PCP - General Family Medicine 04/26/18 Rafa Rangel [address] [place] [phone] Referring General Surgery 04/26/18 Criminal Investigative Agent Relationship Specialty Start Date End Date Joel Alejandra PCP - General Family Medicine 04/26/18 Rafa Rangel [address] [place] [address] Referring General Surgery 04/26/18 Criminal Investigative Agent Relationship Specialty Start Date End Date Joel Alejandra PCP - General Family Medicine 04/26/18 Rafa Rangel [address] [place] [address] Referring General Surgery 04/26/18 Criminal Investigative Agent Relationship Specialty Start Date End Date Joel Alejandra PCP - General Family Medicine 04/26/18 Rafa Rangel [address] [place] [phone] Referring General Surgery 04/26/18 Criminal Investigative Agent Relationship Specialty Start Date End Date Joel Alejandra PCP - General Family Medicine 04/26/18 Rafa Rangel [address] [place] [phone] Referring General Surgery 04/26/18 Criminal Investigative Agent Relationship Specialty Start Date End Date Joel Alejandra PCP - General Family Medicine 04/26/18 Rafa Rangel [address] [place] [address] Referring General Surgery 04/26/18 Criminal Investigative Agent Relationship Specialty Start Date End Date Joel Alejandra PCP - General Family Medicine 04/26/18 Rafa Rangel [address] [place] [address] [facility] [address] [place] [phone] Referring General Surgery 04/26/18 Criminal Investigative Agent Relationship Specialty Start Date End Date Joel Alejandra PCP - General Family Medicine 04/26/18 Rafa Rangel [address] [place] [address] [facility] [address] [place] [phone] Referring General Surgery 04/26/18 Criminal Investigative Agent Relationship Specialty Start Date End Date Joel Alejandra PCP - General Family Medicine 04/26/18 Rafa Rangel [address] [place] [phone] Referring General Surgery 04/26/18 Criminal Investigative Agent Relationship Specialty Start Date End Date Joel Alejandra PCP - General Family Medicine 04/26/18 Rafa Rangel [address] [phone] Referring General Surgery 04/26/18 Goals (unrecognized section and content) Goals may be documented in a n alternate section REASON FOR VISIT (unrecogniz ed section and content) Reason Comments Appointment Reason Comments [employer]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 DISEASE [place] Diagnoses Nausea Procedures MANOMETRY ESOPHAGEAL ESOPHAGEAL MOTILITY STUDY W/INTERP&RPT Marques Bradley MD [address] [place] [address] [address] Referral ID Status Reason Start Date Expiration Date V isits Requested Visits Authorized [id number] Closed Auto-Generate d Referral 05/16/2023 05/16/2024 1 1 Reason Comments Results Reason Comments Patient Education Assessment Source Comments (unrecognize d section and content) In the event this informatio n is protected by the Federal Confidentiality of Alcohol and Drug Abuse Patient Records regulations: The Federal rules restrict any use of the information to criminally investigate or prosecute any alcohol or drug abuse patient.[facility] the event this information is protected by the Federal Confidentiality of Alcohol and Drug Abuse Patient Records regulations: The Federal rules restrict any use of the information to criminally investigate or prosecute any alcohol or drug abuse patient.[facility] the event this information is protected by the Federal Confidentiality of Alcohol and Drug Abuse Patient Records regulations: The Federal rules restrict any use of the information to criminally investigate or prosecute any alcohol or drug abuse patient.[facility] the event this information is protected by the Federal Confidentiality of Alcohol and Drug Abuse Patient Records regulations: The Federal rules restrict any use of the information to criminally investigate or prosecute any alcohol or drug abuse patient.[facility] the event this information is protected by the Federal Confidentiality of Alcohol and Drug Abuse Patient Records regulations: The Federal rules restrict any use of the information to criminally investigate or prosecute any alcohol or drug abuse patient.[facility] the event this information is protected by the Federal Confidentiality of Alcohol and Drug Abuse Patient Records regulations: The Federal rules restrict any use of the information to criminally investigate or prosecute any alcohol or drug abuse patient.[facility] the event this information is protected by the Federal Confidentiality of Alcohol and Drug Abuse Patient Records regulations: The Federal rules restrict any use of the information to criminally investigate or prosecute any alcohol or drug abuse patient.[facility] the event this information is protected by the Federal Confidentiality of Alcohol and Drug Abuse Patient Records regulations: The Federal rules restrict any use of the information to criminally investigate or prosecute any alcohol or drug abuse patient.[facility] the event this information is protected by the Federal Confidentiality of Alcohol and Drug Abuse Patient Records regulations: The Federal rules restrict any use of the information to criminally investigate or prosecute any alcohol or drug abuse patient.[facility] the event this information is protected by the Federal Confidentiality of Alcohol and Drug Abuse Patient Records regulations: The Federal rules restrict any use of the information to criminally investigate or prosecute any alcohol or drug abuse patient.[facility] the event this information is protected by the Federal Confidentiality of Alcohol and Drug Abuse Patient Records regulations: The Federal rules restrict any use of the information to criminally investigate or prosecute any alcohol or drug abuse patient.[facility] the event this information is protected by the Federal Confidentiality of Alcohol and Drug Abuse Patient Records regulations: The Federal rules restrict any use of the information to criminally investigate or prosecute any alcohol or drug abuse patient.[facility] FOR RECORDS PERTAINING TO PATIENTS WHO ARE OR HAVE BEEN ENROLLED IN A CHEMICAL DEPENDENCY/SUBSTANCEABUSE PROGRAM, SOME INFORMATION MAY BE OMITTED. This clinical summary was aggregated from multiple sources. Caution should be exercised in using it in the provision of clinical care. This summary normalizes information from multiple sources, and as a consequence, information in this document may materially change the coding, format and clinical context of patient data. In addition, data may be omitted in some cases. CLINICAL DECISIONS SHOULD BE BASED ON THE PRIMARY CLINICAL RECORDS. [facility]. provides no warranty or guarantee of the accuracy or completeness of information in this document.
--- NOTE | 2023-10-12 03:29 | ED_ITS ---
HPI - Abdominal Pain General Chief Complaint: Abdominal Pain Stated Complaint: abd pain Time Seen by Provider: 10/12/23 03:24 Source: patient Mode of arrival: walk-in Limitations: no limitations History of Present Illness HPI narrative: presents complaining of abdominal pain, diarrhea and nausea since yesterday. Denies bloody diarrhea. Pain of her lower quads. 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 Recurrent loose stools that are nonbloody. Has not vomited but limited intake due to nausea Related Data Home Medications Medication Instructions Recorded Confirmed rimegepant 75 mg disintegrating 75 mg PO DAILY PRN migraine 02/26/23 10/12/23 tablet (Nurtec ODT) headache pantoprazole 40 mg tablet,delayed 40 mg PO BID 10/12/23 10/12/23 release Previous Rx's Medication Instructions Recorded dicyclomine 20 mg tablet 20 mg PO TID PRN abdominal pain #7 06/06/23 tabs Allergies Allergy/AdvReac Type Severity Reaction Status Date / Time cyclobenzaprine Allergy Severe Anaphylaxis Verified 08/20/23 00:17 [From Flexeril] Penicillins Allergy Intermediate Hives Verified 08/20/23 00:17 Review of Systems ROS Status of ROS 10 or more systems reviewed and unremark able except as noted in history and below [facility] Medical History (Updated 10/17/23 @ 00:00 by ) GERD (gastroesophageal reflux disease) ?K21.9 - Gastro-esophageal reflux disease without esophagitis (ICD-10) Elevated troponin ?R77.8 - Other specified abnormalities of plasma proteins (ICD-10) Chronic upper abdominal pain ?R10.10 - Upper abdominal pain, unspecified (ICD-10) ?G89.29 - Other chronic pain (ICD-10) Epigastric abdominal pain ?R10.13 - Epigastric pain (ICD-10) Abdominal pain, chronic, generalized ?R10.84 - Generalized abdominal pain (ICD-10) ?G89.29 - Other chronic pain (ICD-10) Headache, migraine ?G43.909 - Migraine, unspecified, not intractable, without status migrainosus (ICD-10) Gastroparesis ?K31.84 - Gastroparesis (ICD-10) Mitral valve disorder ?I05.9 - Rheumatic mitral valve disease, unspecified (ICD-10) Surgical History (Updated 10/12/23 @ 07:54 by Judy Gutierrez) 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 ?K95.89 - Other complications of other bariatric procedure (ICD-10) ?K22.4 - Dyskinesia of esophagus (ICD-10) History of hernia surgery ?Z98.890 - Other specified postprocedural states (ICD-10) ?Z87.19 - Personal history of other diseases of the digestive system (ICD-10) FH: cholecystectomy ?Z83.79 - Family history of other diseases of the digestive system (ICD-10) H/O: hysterectomy ?Z90.710 - Acquired absence of both cervix and uterus (ICD-10) Family History (Updated 10/12/23 @ 07:55 by Judy Gutierrez) Father Family history of myocardial infarction Family history of cancer Grandmother Family history of diabetes mellitus Family history of stroke Sister Family history of hypertension Social History (Updated 10/12/23 @ 07:57 by Judy Gutierrez) Within the past year, how often did you have a drink containing alcohol: never Score interpretation: A score less than 3 is consistent with normal alcohol consumption. 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 Highest level of school completed/degree received: high school graduate Are you now , , , , never or living with a partner: Little interest or pleasure in doing things: not at all Feeling down, depressed, or hopeless: not at all Feel stressed/tense/nervous/anxious/difficulty sleeping: not at all Do you think of yourself as: straight/heterosexual Exam Constitutional Vital Signs, click to edit/add: Last Vital Signs Temp 98.0 F 10/13/23 04:42 Pulse 47 L 10/13/23 04:42 Resp 16 10/13/23 04:42 BP 135/83 10/13/23 04:42 Pulse Ox 96 10/13/23 04:42 O2 Del Method Room Air 10/13/23 04:42 Common normals: average body habitus, oriented x3, healthy appearing, alert and well nourished General appearance: in distress HENMT Common normals: normocephalic and head/scalp atraumatic Eye Common normals: PERRL, EOMs intact bilaterally and conjunctivae normal Respiratory Common normals: normal respiratory effort, no retractions, no use of accessory muscles and clear to auscultation bilaterally Cardio Common normals: regular rate, regular rhythm, S1 normal heart sound and S2 normal heart sound GI Other: mod. bilat lower quad tenderness. no guarding or rebound Extremity Common normals: normal to inspection and full ROM Neuro Common normals: oriented x3, CN's II-XII intact bilaterally, moves all extremities and no focal motor deficits Psych Appearance: grossly normal Course Course Hospital Course: The patient was admitted with colonic ileus and constipation with associated N/V/D and abdominal pain. She was treated with IV fluids and scheduled stool softeners. Pain was treated with Tylenol and narcotics were avoided due to impaired bowel motility. Her diet was initially maintained to clear liquids and then advanced which she tolerated well. Her abdominal pain, nausea and vomiting, resolved and she was passing flatus and stool. C-diff, Giardia, and Cryptosporidium studies were negative. Her stool was sent for culture and a GI panel which were still pending at the time of discharge, but we have low clinical suspicion of infectious or inflammatory etiology of her symptoms. As the patient was back to her baseline she was discharged home in stable condition. She should follow-up with her PCP within 1 week. She was advised to hold her home Bentyl until her BMs are completely normal. She should continue to take OTC stool softeners as needed, avoid harsh laxatives, and drink plenty of fluid. Vital Signs Vital signs: Vital Signs Temperature 98.0 F 10/12/23 03:15 Pulse Rate 84 10/12/23 03:15 Respiratory Rate 16 10/12/23 03:15 Blood Pressure 148/96 H 10/12/23 03:15 Pulse Oximetry 98 10/12/23 03:15 Oxygen Delivery Method Room Air 10/12/23 03:15 Temperature 98.0 F 10/13/23 04:42 Pulse Rate 47 L 10/13/23 04:42 Respiratory Rate 16 10/13/23 04:42 Blood Pressure 135/83 10/13/23 04:42 Pulse Oximetry 96 10/13/23 04:42 Oxygen Delivery Method Room Air 10/13/23 04:42 MDM - Abdominal Pain MDM Narrative Medical decision making narrative: patient presents with abdominal pain, tenderness,nausea and recurrent diarrhea. Tenderness is moderate lower quads without guarding. Zofran and reglan used and nausea has improved but not resolved. Pain has decreased to 6/10 after Bentyl, morphine 4mg and Fentanyl 50. She appears more comfortable but remains moderately ill. CT with findings of possible colonic ileus and suspected constipation. she is also dehydrated and has received 2L NS IVF discussed with Dr Izaguirre and will plan observation admission for continued hydration, pending stool cultures and pain control prn Lab Data Labs: Lab Results 10/12/23 10/12/23 10/12/23 Range/Units 03:18 03:19 03:26 WBC 8.0 (4.0-11.0) 10^3/uL RBC 4.12 L (4.20-5.40) 10^6/uL Hgb 12.1 (12.0-16.0) g/dL Hct 38.8 (36.0-48.0) % MCV 94.2 (81.0-99.0) fL MCH 29.4 (26.7-34.0) pg MCHC 31.2 (29.9-35.2) g/dL RDW 13.1 (11.0-15.0) % Plt Count 382 (150-450) 10^3/uL MPV 9.4 L (9.5-13.5) fL Neut % (Auto) 71.9 (43.0-75.0) % Lymph % (Auto) 20.0 L (20.5-60.0) % [place] % (Auto) 5.7 (1.7-12.0) % Eos % (Auto) 1.4 (0.9-7.0) % Baso % (Auto) 0.6 (0.2-2.0) % Neut # (Auto) 5.8 (1.4-6.5) 10^3/uL Lymph # (Auto) 1.6 (1.2-3.8) 10^3/uL [place] # (Auto) 0.5 (0.3-0.8) 10^3/uL Eos # (Auto) 0.1 (0.0-0.7) 10^3/uL Baso # (Auto) 0.1 (0.0-0.1) 10^3/uL Abs Immat Gran (auto) 0.03 (0.00-0.03) 10^3/uL Imm/Tot Granulo (auto) 0.4 (0.0-0.5) % Sodium 142 (136-145) mmol/L Potassium 3.6 (3.5-5.1) mmol/L Chloride 109 H (98-107) mmol/L Carbon Dioxide 25.0 (21.0-32.0) mmol/L Anion Gap 11.6 BUN 29.0 H (7.0-18.0) mg/dL Creatinine 1.16 H (0.55-1.02) mg/dL Est GFR ( Amer) 59 L (>=60) Est GFR (Non-Af Amer) 49 L (>=60) BUN/Creatinine Ratio 25.0 Glucose 63 L (74-106) mg/dL Lactate 1.2 (0.4-2.0) mmol/L Calcium 9.0 (8.5-10.1) mg/dL Total Bilirubin 0.2 (0.2-1.0) mg/dL AST 6 L (15-37) U/L ALT 17 (14-59) U/L Alkaline Phosphatase 140 H (46-116) U/L Troponin I High Sens 38.7 (4.0-51.3) pg/mL NT-Pro-B Natriuret Pep 73.0 (<=900.0) pg/mL Total Protein 7.6 (6.4-8.2) g/dL Albumin 3.8 (3.4-5.0) g/dL Globulin 3.8 g/dL Albumin/Globulin Ratio 1.0 Urine Color Lt. yellow (YELLOW) Urine Clarity Clear (CLEAR) Urine pH 5.5 (5.0-9.0) Ur Specific [place] 1.025 (1.005-1.025) Urine Protein Negative (NEG/TRACE) mg/dL Urine Glucose (UA) Negative (NEGATIVE) mg/dL Urine Ketones Negative (NEGATIVE) mg/dL Urine Occult Blood Small A (NEGATIVE) Urine Nitrite Negative (NEGATIVE) Urine Bilirubin Negative (NEGATIVE) Urine Urobilinogen 0.2 (0.2-1.0) EU/dL Ur Leukocyte Esterase Negative (NEGATIVE) Urine RBC 2-5 A (0-2) #/HPF Urine WBC None seen (NONE SEEN) #/HPF Ur Squamous Epith Cells None seen (NONE/RARE) #/LPF Urine Crystals None seen (None Seen) #/HPF Urine Bacteria None seen (NONE SEEN) #/HPF Urine Casts None seen (NONE SEEN) #/LPF Urine Mucus None seen (NONE SEEN) Stl Cryptosporidium Ag Negative (Negative) Giardia lamblia Ag Negative (Negative) C. difficile Toxin PCR Negative (NEGATIVE) Imaging Data Abdominal x-ray: Radiologist's impression: ITS Impressions Abdomen/Pelvis CT 10/12/23 03:28 IMPRESSION: 1. Mild colonic ileus pattern and constipation suspected. No additional acute abnormality or significant interval change. 2. Prior cholecystectomy, appendectomy, hysterectomy. Electronically authenticated by: APOLINAR SÁNCHEZ Date: 10/12/2023 04:45 Discharge Plan Discharge Chief Complaint: Abdominal Pain Clinical Impression: Acute diarrhea, Abdominal pain, chronic, generalized Patient Disposition: Admitted as Observation Discharge Date/Time: 10/12/23 07:35
[2023-10-12 03:36] LABS: Basophils Absolute Auto 0.1 10^3/uL (0.0-0.1); Basophils Percent Auto 0.6 % (0.2-2.0); Eosinophils Absolute Auto 0.1 10^3/uL (0.0-0.7); Eosinophils Percent Auto 1.4 % (0.9-7.0); Hematocrit 38.8 % (36.0-48.0); Hemoglobin 12.1 g/dL (12.0-16.0); Immature Granulocytes Abs Auto 0.03 10^3/uL (0.00-0.03); Immature Granulocytes Pct Auto 0.4 % (0.0-0.5); Lymphocytes Absolute Auto 1.6 10^3/uL (1.2-3.8); Mean Corpuscular HGB Conc 31.2 g/dL (29.9-35.2); Mean Corpuscular Hemoglobin 29.4 pg (26.7-34.0); Mean Corpuscular Volume 94.2 fL (81.0-99.0); Mean Platelet Volume 9.4 fL (9.5-13.5); Monocytes Absolute Auto 0.5 10^3/uL (0.3-0.8); Monocytes Percent Auto 5.7 % (1.7-12.0); Neutrophils Absolute Auto 5.8 10^3/uL (1.4-6.5); Neutrophils Percent Auto 71.9 % (43.0-75.0); Platelet Count 382 10^3/uL (150-450); Red Blood Count 4.12 10^6/uL (4.20-5.40); Red Cell Distribution Width 13.1 % (11.0-15.0)
[2023-10-12] MEDS: DICYCLOMINE HCL 20 MG/2 ML VIAL IM (03:41)
[2023-10-12] MEDS: 0.9 % SODIUM CHLORIDE 1,000 ML 999 ML IV ×2 (03:41→05:32)
[2023-10-12] MEDS: ONDANSETRON PF 4 MG/2 ML VIAL IV (03:41)
[2023-10-12] MEDS: MORPHINE SULFATE 4 MG/ML VIAL IV (03:41)
[2023-10-12 03:50] LABS: Alanine Aminotransferase 17 U/L (14-59); Albumin Level 3.8 g/dL (3.4-5.0); Alkaline Phosphatase 140 U/L (46-116); Anion Gap 11.6; Aspartate Amino Transferase 6 U/L (15-37); Bilirubin Total 0.2 mg/dL (0.2-1.0); Chloride 109 mmol/L (98-107); Estimated GFR (African America 59 (>=60); Estimated GFR (Non-African Ame 49 (>=60); Globulin 3.8 g/dL; Glucose 63 mg/dL (74-106); Potassium 3.6 mmol/L (3.5-5.1); Sodium 142 mmol/L (136-145); Total Protein 7.6 g/dL (6.4-8.2)
[2023-10-12 04:59] LABS: Bilirubin Urine NEGATIVE (NEGATIVE); Blood Urine SMALL (NEGATIVE); Clarity Urine CLEAR (CLEAR); Color Urine LT. YELLOW (YELLOW); Glucose Urine UA NEGATIVE (NEGATIVE); Ketones Urine NEGATIVE (NEGATIVE); Leukocyte Esterase Urine NEGATIVE (NEGATIVE); Nitrite Urine NEGATIVE (NEGATIVE); Protein Urine NEGATIVE (NEG/TRACE); Specific Gravity Urine 1.025 (1.005-1.025); Urobilinogen Urine 0.2 EU/dL (0.2-1.0); pH Urine 5.5 (5.0-9.0)
[2023-10-12 05:00] LABS: Urine Microscopic Indicated YES
[2023-10-12 05:05] LABS: Bacteria Urine NONE SEEN #/HPF (NONE SEEN); Cast Seen? NONE SEEN #/LPF (NONE SEEN); Crystals Seen? None Seen #/HPF (None Seen); Mucus Urine NONE SEEN (NONE SEEN); Squamous Epithelial Cell Urine NONE SEEN #/LPF (NONE/RARE); WBC Urine NONE SEEN #/HPF (NONE SEEN)
[2023-10-12] MEDS: METOCLOPRAMIDE HCL 10 MG/2 ML VIAL IVP (05:31)
[2023-10-12] MEDS: FENTANYL CITRATE/PF 100 MCG/2 ML VIAL 50 MCG IV (05:31)
[2023-10-12 06:01] LABS: Lactate/Lactic Acid 1.2 mmol/L (0.4-2.0)
--- OUTSIDE RECORDS SUMMARY | 2023-10-12 07:45 | XMS_ITS | CCD ---
Author Name Unknown Address [address] [facility] [address] [place] [address] Organization [facility] Care Team Providers Care Assistant Restaurant General Manager Name Role Phone LEONA MORTENSEN Admitting Unavailable LEONA MORTENSEN Attending Unavailable KEVIN HERRERA Primary Care Unavailable KEVIN HERRERA Referring Unavailable [place] Procedure Practitioner Unavailab ORESTES Cruz Surgeon Unavailable JUDI YOUSSEF Primary Care Physician DONI Youssef Primary Care Provider DO Conner Griffith Emergency Provider Jennie Ayon Unavailable MD Jennie Ayon Attending Provider [phone] KLAUDIA, DR JONHATHAN Botello Attending Unavailibis RUDOLPH, DR JOHNATHAN Botello [...] Unavailable SHAIKH Juan Luis DAVIS Admitting Unavailable MIKAEL JUDI Primary Care Unavailable DR GUILLERMO VANESSA [...] Unavailable MIKAEL, JUDI Admitting Unavailable ZIEBER, DR URSH Hairston Consulting Unavailable MIKAEL, JUDI Attending Unavailable MIKAEL, JUDI Primary Care Unavailable MIKAEL, JUDI Consulting Unavailable MIKAEL, JUDI Admitting Unavailable DR CASSANRDA PUENTE V Consulting Unavailable MIKAEL, JUDI Attending Unavailable MIKAEL, JUDI Primary Care Unavailable JUDI YOUSSEF Consulting Unavailable LINDA Yousse[facility] Primary [facility] Provider Gladis DO Prieto M Emergency Provider DO Pete Thakkar Emergency Provider [facility] Primary Care Provider Rafa Rangel Unavailable Renny Gan Unavailable Mikael, Judi Joan Primary Care Unavailable Gladis, Conner M Admitting Unavailable Gladis, Conner M Attending Unavailable Mikael, [facility] Primary [facility] Unavailable Asaad, Imad Admitting Unavailable Asaad, Imad Attending Unavailable Renny Gan Consulting Unavailabl e [facility], [facility] Primary Care Unavailable Deann Montalvo Attending Unavailable Alahmad, Alaa Admitting Unavailable Mikael, Judi Joan Primary Care Unavailable Gladis, Conner M Admitting Unavailable Gladis, Conner M Attending Unavailable Mikael, [facility] Primary Care Unavailable Pete Thakkar A Admitting Unavailable Pete Thakkar Attending Unavailable Samuel Estrella Attending Unavailable Monique Marquez Attending Unavailable Anai REAGAN Attending Unavailable Zabrina Patton Attending Unavailable MARQUES BRADLEY Referring Unavailable [facility] Primary Care Unavailable [facility] Primary Care Unavailable KRMARQUES HAGER Referring Unavailable KROHMARQUES Attending Unavailable IMER CHERRY Referring Unavailable [facility] Primary Care Unavailable [facility] Primary Care Unavailable KROHMARQUES Referring Unavailable KAITLYN TORRES Attending Unavailable KROHMARQUES Referring Unavailable [facility] Primary Care Unavailable MELISSA MONTALVO Attending Unavailable KROHMARQUES Referring Unavailable [facility] Primary Care Unavailable LSYSLY Attending Unavailable KROHMARQUES Referring Unavailable [facility] Primary Care Unavailable BRENNEN SHAW Attending Unavailable Allergies Allergy Classification Reported Allergen(s) Allergy Type Date of Onset Reaction(s) Facility (5 sources) cyclobenzaprine; Translations: [CYCLOBENZAPRINE] Drug Allergy 04-28-20 18 Swelling of Lip/Tongue/Thr oat [facility] (6 sources) Penicillins Drug allergy (disorder) 09-02-[address] [facility] (20 sources) cyclobenzaprine; Translations: [cyclobenzaprine] Drug Allergy 04-28-20 18 Pharyngeal swelling (finding), Swelling [facility] (20 sources) Penicillin; Translations: [penicillin] Drug Allergy 04-28-20 18 Swelling (morphologic abnormality), Swelling [facility] (8 sources) penicillAMINE Drug Allergy rash [facility] Other (2 sources) cyclobenzaprine Drug Allergy 03-23-20 16 [facility] Repository (1 source) traMADol Drug Allergy [facility] (1 source) traMADol Drug Allergy [facility] (1 source) cyclobenzaprine Drug Allergy 03-23-20 23 [facility] Repository (1 source) Penicillins Drug allergy (disorder) 03-23-20 23 [facility] Medications Current Medications Medication Drug Class(es) [...] day(s), # 120 cap(s), Refills(s) 11, Pharmacy: [facility]/pharmacy #[id number], 170, cm, 05/05/21 14:15:00 EDT, Height/Length Dosing, 83.1, kg, 05/05/21 14:15:00 EDT, Weight Dosing Start Date: 05/05/21 Stop Date: 04/30/22 Status: Ordered Start: 09-20-2020 take 2 capsules by m outh four times daily Bentyl 10 mg Cap 20 mg = 2 cap(s), Oral, QID, # 20 cap(s), Refills(s) 0, Pharmacy: [facility]/pharmacy #[id number], 170, cm, 09/20/20 16:03:00 [...] day(s), # 90 tab(s), Refills(s) 0, Pharmacy: [facility]/pharmacy #[id number], 170, cm, 01/28/22 13:40:00 [...] pain, # 20 tab(s), Refills(s) 0, Pharmacy: [facility]/pharmacy #[id number], 170, cm, 02/19/23 0:56:00 [...] day(s), # 90 cap(s), Refills(s) 1, Pharmacy: [facility]/pharmacy #[id number], 170, cm, 04/14/22 14:53:00 [...] Daily, # 90 cap(s), Refills(s) 3, Pharmacy: [facility]/pharmacy #[id number], 170, cm, 01/11/22 9:17:00 EDT, Height/Length Dosing, 83, kg, 01/11/22 9:17:00 EDT, Weight Dosing Start Date: 01/11/22 Status: Ordered omeprazole 40 mg Cap-DR (1 source) Start: 2 End: 2 take 1 capsule by mouth once daily omeprazole 40 mg Cap-DR 40 mg = 1 cap(s), Oral, Daily, X 90 day(s), # 90 cap(s), Refills(s) 0, Pharmacy: [facility]/pharmacy #[id number], 170, cm, 01/28/22 13:40:00 [...] by mouth twice daily. polyethylene glycol 3350 15800 mg powder for oral solution (1 source) [...] Nausea/Vomiting, # 12 tab(s), Refills(s) 0, Pharmacy: [facility]/pharmacy #[id number], 170, cm, 09/20/20 16:03:00 EST, Height/Length Dosing, 87.5, kg, 09/20/20 16:03:00 EST, Weight Dosing Start Date: 09/20/20 Status: Ordered Completed/Discontinued Medications Medication Drug Class(es) Dates Sig (Normalized) Sig (Original) acetaminophen 325 mg / HYDROcodone bitartrate 5 mg oral tablet (6 sources) Opioid Agonist Start: 06-21-2019 End: 02-15-2023 take 1 tablet by mouth every six hours Hydrocodone-Acetami nophen ([place]) 5-325 mg Tablet Discontinued 1 TAB PO Q6H June 21, 2019 12:00am February 15, 2023 9:46am Start: 11-12-2018 End: 01-30-2019 take 1 tablet by mouth every four to six hours Hydrocodone-Acetaminophen ([place]) 5-325 mg tablet Discontinued 1 TAB PO [...] QID, # 120 tab(s), Refills(s) 0, Pharmacy: [facility]/pharmacy #[id number], 170, cm, 07/22/22 14:33:00 [...] 05-10-2019 Chronic Other aftercare (1 source) Other mcfp (current) drug therapy; Translations: [OTH DETENTION CURRENT DRUG THERAPY] Onset: 11-30-2022 Episodic Other [...] EVALon 023 ANES POSTPROC EVAL HNO ID: [id number] Author: Carlota Jeffrey MD Service: ? Author Type: Anesthesiologist Type: Anesthesia Postprocedure Evaluation Filed: 08/25/2023 5:35 PM Note Text: POST ANESTHESIA EVALUATION NOTE : 1970 Procedure Summary Date: 08/25/23 Room / Location: Gastroenterology Anesthesia Start: 1444 Anesthesia Stop: 155 Procedure: EGD - THERAPEUTIC, EUS, OR TUBE INTERVENTIONS Diagnosis: Gastroparesis (OTHER) Scheduled Providers: Marques Bradley MD; Carlota Jeffrey MD; Vanessa Mcmillan APRN.REGISTERED NURSE FLOAT POOL Responsible Provider: Carlota Jeffrey MD Anesthesia Type: [...] August 25, 2023 TIME: 5:35 PM CSN: [id number] [facility] ANES PRE-OPon 08-25-2023 ANES PRE-OP HNO ID: [id number] Author: Carlota Jeffrey MD Service: ? Author [...] and consent discussed: yes. Patient / Responsible Libertarian agrees to proceed: yes Patient / Surrogate [...] August 25, 2023 TIME: 11:46 AM CSN: [id number] [facility] HISTORY PHYSICALon HISTORY PHYSICAL HNO ID: [id number] Author: Gavi Bourgeois MD Service: General Surgery [...] DATE: August 25, 2023 TIME: 6:57 AM [facility] NURSING PROGon 08-25-2023 NURSING PROG HNO ID: [id number] Author: Melody Walter RN Service: Nursing Author [...] None Electronically Signed By: Melody Walter RN [facility] NURSING PROG HNO ID: [id number] Author: Pamela Osuna RN Service: ? Author [...] By: Pamela Navarro RN In Department: GASTROENTEROLOGY [facility] Magda 07-22-2023 SHEILA Telephone (CineC[employer]) CONSTANTINO CARDOSO ([id number]) 1970 F Date Time Provider Department 07/22/23 [...] Status:Closed by EVELYN BLACK on 07/22/23 [facility] ANES POSTPROC EVALon 023 ANES POSTPROC EVAL HNO ID: [id number] Author: Sly Carter MD Service: ? Author [...] Scheduled Providers: Marques Bradley MD; Amanda Bernard APRN.REGISTERED NURSE FLOAT POOL; Sly Carter MD Responsible Provider: Sly Carter [...] July 14, 2023 TIME: 12:26 PM CSN: [id number] [facility] ANES PRE-OPon 07-14-2023 ANES PRE-OP HNO ID: [id number] Author: Sly Carter MD Service: ? Author Type: Anesthesiologist Type: Anesthesia Preprocedure Evaluation Filed: 07/14/2023 9:19 AM Note Text: ANESTHESIOLOGY DAY OF SURGERY NOTE : 1970 Procedure Information Date/Time: 07/14/23929 Scheduled providers: Marques Bradley MD; Amanda Bernard APRN.REGISTERED NURSE FLOAT POOL; Sly Carter MD Procedure: EGD - THERAPEUTIC, [...] and consent discussed: yes. Patient / Responsible Libertarian agrees to proceed: yes Patient / Surrogate [...] July 14, 2023 TIME: 9:11 AM CSN: [id number] [facility] EGD - THERAPEUTIC, EUS, OR T UBE INTERVENTIONSon 07-14-2023 [facility] HISTORY PHYSICALon HISTORY PHYSICAL HNO ID: [id number] Author: Raúl Quintero MD Service: General Surgery [...] medications for this visit. REVIEW OF SYSTEMS: DIABETES TERRITORY MANAGER: Negative for CVA, Negative for TIA Respiratory: Negative for smoking, dyspnea, cough, asthma, bronchitis, emphysema Cardiovascular: Negative for chest pain, leg swelling or palpitations. GI: See HPI : No history of dysuria, frequency and incontinence Endocrine: Negative for cold or heat intolerance, polyuria, polydipsia and goiter. Hematology Negative for prolonged bleeding, bruising easily, and swollen nodes. SIGNATURE: Raúl Quintero MD PATIENT NAME: Constantino [...] July 14, 2023 TIME: 9:40 AM [facility] NURSING PROGon 07-14-2023 NURSING PROG HNO ID: [id number] Author: Mónica Spaulding RN Service: Nursing Author Type: Registered Nurse Type: Nursing Progress Note Filed: 07/14/2023 11:21 AM Note Text: 1121: Dr. Mehrdad Carter paged : Patient Constantino Cardoso in post bed 10: Complaining of 10/10 abdominal pain (gas), mild nausea. Any further orders? Thanks! Mari Spaulding RN BSN [facility] NURSING PROG HNO ID: [id number] Author: Mónica Spaulding RN Service: Nursing Author [...] Signed By: Mónica Spaulding RN BSN [facility] NURSING PROG HNO ID: [id number] Author: Candace Jaramillo RN Service: ? Author [...] Candace Jaramillo RN In Department: GASTROENTEROLOGY [facility] SURGICAL PATHOLOGYon 023 ADDENDUM 1: [facility] Comment on above: Order Comment: Speci men Type: TISSUE SPECIMENOrdering Facility: [facility] Address: [address] [place] [address] Result Comment: Give n the background of chronic gastritis a Helicobacter pylori immunostain was performed on block A and is negative for Helicobacter pylori organisms. AEB 07/20/2023 Laboratory Developed Test (LDT) Disclaimer: Performance characteristics of immunohistochemical, immunofluorescent and chromogenic in-situ hybridization tests have been determined by the performing laboratory within [facility]???s [facility] Pathology and Laboratory Medicine [place] ([facility], [facility], [facility], [facility], [facility], [facility], or [facility]) in a manner consistent with CLIA requirements. [...] at 9:30 AM Performed By: #### S ####[facility] LABCLIA [id number] [place] [address] [place] CASE REPORT [facility] Comment on above: Order Comment: Speci men Type: TISSUE SPECIMENOrdering Facility: [facility] Address: [address] [place] [address] Result Comment: [facility]ology Report Case: [id number] Authorizing Provider: Marques Bradley MD Collected: 07/14/2023 10:42 AM Ordering Location: Gastroenterology Received: 07/14/2023 07:34 PM Pathologist: Marilou Zacarias MD Specimen: STOMACH BIOPSY, R/O H.Pylori Performed By: #### S ####[facility] LABCLIA [id number] [address] [place] DIAGNOSIS COMMENT Immunohistochemical stain for Helicobacter pylori is pending and will be reported as an addendum. [facility] Comment on above: Order Comment: Speci men Type: TISSUE SPECIMENOrdering Facility: [facility] Address: [address] [place] [address] Performed By: #### S ####[facility] LABCLIA [id number] [address] [place] FINAL DIAGNOSIS [facility] Comment on above: Order Comment: Speci men Type: TISSUE SPECIMENOrdering Facility: [facility] Address: [address] [place] [address] Result Comment: Velma scott, biopsy: - Chronic inactive gastritis. See comment. AEB/dkclementina 07/18/2023 Performed By: #### S ####[facility] LABCLIA [id number] [address] [place] FINAL PERFORMING LAB Normal [facility] Comment on above: Order Comment: Speci men Type: TISSUE SPECIMENOrdering Facility: [facility] Address: [address] [place] [address] Result Comment: Diag nostic interpretation performed at [facility], [facility] [place] [address] CLIA# [id number] Senior Financial Consultant: Maurisio Ritchie M.D. Performed By: #### S ####[facility] LABCLIA [id number] [place] [address] [place] GROSS DESCRIPTION Normal [facility] Comment on above: Order Comment: Speci men Type: TISSUE SPECIMENOrdering Facility: [facility] Address: [address] [place] [address] Result Comment: A. S TOMACH BIOPSY Received in formalin are two pieces of hager, soft tissue aggregating to 0.5 x 0.2 x 0.2 cm. Totally submitted in one cassette. Two Gross examination performed at [facility], [address] [place] [address] July 14, 2023 11:10 PM Performed By: #### S ####[facility] LABIA [id number] [address] [place] Lipase Levelon 06-06-2023 Lipase [Catalytic activity/Vol] 33 U/L Normal 13-[address] [facility] Comment on above: Performed By: #### [id number] ####[facility] [id number] [place] [address] [facility] 05-27-2023 CNPN Telephone (GENBMI) CONSTANTINO CARDOSO ([id number]) 1970 F Date Time Provider Department 05/27/23 [...] Status:Closed by EVELYN BLACK on 05/27/23 Normal [facility] GASTRIC EMPTYING SOLIDon 05-26-2023 NM GASTRIC EMPTYING SOLID * * *Final Report* * * DATE OF EXAM: May 26 2023 11:11AM N 0017 - [place] GASTRIC EMPTYING SOLID / PROCEDURE REASON: Nausea [...] RATE OF GASTRIC EMPTYING OF SOLID MEAL. Custom Miller: PSCB Transcribe Date/Time: May 26 2023 11:18A Dictated by : SILVANO WELSH MD This examination was interpreted and the report reviewed and electronically signed by: SILVANO WELSH MD on May 26 2023 11:18AM EST [id number] [facility] CNNURSEon 05-25-2023 CNNURSE Nurse Visit (GASTMN) CONSTANTINO CARDOSO ([id number]) 1970 F Date Time Provider Department 05/25/23 8:30 AM NURSE GI LAB 2 GASTMN During your visit today, we recorded the following information about you: Pedro Gonzalez LPN 05/25/2023 4:15 PM Signed Name: Constantino Cardoso CC#: [id number] Date: 05/25/2023 ESOPHAGEAL MANOMETRY TEST Indication: Nausea [...] .Pedro Gonzalez LPN Referring Provider: MARQUES BRADLEY [[id number]] Allergies As of Date: 05/25/2023 Noted Allergy Reaction FLEXERIL (CYCLOBENZAPRINE) 04/28/2018 7 - Swelling PENICILLIN 04/28/2018 7 - Swelling Date Reviewed: 05/06/2023 Reviewed by: Judy Michaels MA - Fully Assessed Reason for Visit: Procedure [88] Cmt: Manometry Esophageal Visit Diagnosis:Nausea [R11.0] Order(s):MANOMETRY ESOPHAGEAL [31892HYY] Order #: [id number] Prescriptions as of 05/25/2023 - dicyclomine (BENTYL) [...] Encounter Status:Closed by PEDRO [facility]ZALEZ [facility] CONSTANT[facility] ([id number]) 1970 F Date Time Provider Department 05/16/23 [...] Encounter Status:Closed by EVELYN BLACK on 05/16/23 [facility] [place] 05-06-2023 CNOV Office Visit (GENBMI ) CONSTANTINO CARDOSO ([id number]) 1970 F Date Time Provider Department 05/06/23 [...] for internal providers or letter via the [employer] for external providers. Chief Complaint: [...] patient's care with the resident. Signature: Marques Brdaley MD Date: 05/12/2023 Time: 8:15 AM Referring Provider: IMER CHERRY [[id number]] Allergies As of Date: 05/06/2023 Noted Allergy Reaction (more content not included)... [facility] CNPNon 05-02-2023 CNPN Telephone (GENBMI) CONSTANTINO CARDOSO ([id number]) 1970 F Date Time Provider Department 05/02/23 EVELYN BLACK GENBMI During your visit today, we recorded the following information about you: Evelyn Black, RN 05/04/2023 1:55 PM Addendum BMI SPECIALTY CARE COORDINATION TELEPHONE ENCOUNTER Chief complaint AND duration dysphagia. Type of procedure: hernia repair hiatal with Dr. MORTENSEN in [place] February of 2019. Sending OP notes Nursing assessment (subjective/objective) . pain in chest area and getting worse, hard to breathe c/o nausea and oral intolerance, using miralax for BM Went to [place] ED March 2023 who told her she needed a stent in her heart..but her c/o were difficulty swallowing and sent pt home and referred her to [facility] and was admitted for almost a week [...] HHR a year later @ OSH in [place] Recommendation: appt after records obtained, encouraged small [...] Encounter Status:Closed by EVELYN BLACK on 05/02/23 [facility] 04-26-2023 CNPN Telephone (GENBMI) CONSTANTINO CARDOSO ([id number]) 1970 F Date Time Provider Department 04/26/23 [...] Encounter Status:Closed by EVELYN BLACK on 04/26/23 [facility] 04-18-2023 CNPN Telephone (GENBMI) CONSTANTINO CARDOSO ([id number]) 1970 F Date Time Provider Department 04/18/23 EVELYN BLACK GENI During your visit today, we recorded the following information about you: Evelyn Black, RN 04/18/2023 2:17 PM Signed BMI SPECIALTY CARE COORDINATION TELEPHONE ENCOUNTER Contacted pt regarding a referral from Dr Martinez's office. [facility] and call back number. 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 Visit: Hair Spinner - Other [3602] Prescriptions as of 04/18/2023 [...] Encounter Status:Closed by EVELYN BLACK on 04/18/23 [facility] Magda 04-07-2023 CNPN Telephone (GASTSP) CONSTANTINO CARDOSO ([id number]) 1970 F Date Time Provider Department 04/07/23 GUILLERMO MARTINEZ [facility] During your visit today, we recorded [...] Encounter Status:Closed by YANCY LOPEZ on 04/07/23 [facility] NM gastric emptying study 03-31-2023 NM gastric emptying study [address] [place] [address] Nuclear Medicine Report Signed Patient: Constantino Cardoso MR#: [id number] : 1970 Acct:[id number] Age/Sex: 52 / F ADM Date: 03/26/23 Loc: Room: [address] [place] [address] Type: ADM IN Attending Dr: Deann Montalvo [...] Samuel Stone M.D.03/31/2023 10:03 AM Dictation Location: [place] [address] Transcribed By: [facility] 03/31/23 1003 Dictated By: Samuel Stone DO 03/31/23 0956 Signed By: 03/31/23 1003 [facility] Comprehensive Metabolic Pane miranda 03-29-2023 Albumin [Mass/Vol] 3.8 g/dL Normal 3.5-5.7 [facility] Comment on above: Performed By: #### C STELLA, CMP #### [facility] [address] [place] [address] Albumin/Globulin [Mass ratio] 1.4 {ratio} Normal [facility] Comment on above: Performed By: #### C BCTED, CMP #### [facility] [address] [place] [id number] [place] ALP [Catalytic activity/Vol] 102 U/L Normal 34-104 [facility] Comment on above: Performed By: #### C BCNO, CMP #### [facility] [address] [place] [id number] [place] ALT [Catalytic activity/Vol] 10 U/L Normal 7-52 [facility] Comment on above: Performed By: #### C BCTED, CMP #### [facility] [address] Anion gap [Moles/Vol] 10.4 mmol/L Normal 6.0-15.0 [facility] Comment on above: Performed By: #### C STELLA, CMP #### [facility] [address] AST [Catalytic activity/Vol] 14 U/L Normal 13-39 [facility] Comment on above: Performed By: #### C STELLA, CMP #### [facility] [address] Bilirubin [Mass/Vol] 0.5 mg/dL Normal 0.3-1.0 [facility] Comment on above: Performed By: #### C STELLA, CMP #### [facility] [address] Calcium [Mass/Vol] 9.0 mg/dL Normal 8.6-10.3 [facility] Comment on above: Performed By: #### C STELLA, CMP #### [facility] [address] [place] [address] [place] Chloride [Moles/Vol] 103 mmol/L Normal 98-107 [facility] Comment on above: Performed By: #### C STELLA, CMP #### [facility] [address] CO2 [Moles/Vol] 28.4 mmol/L Normal 21.0-31.0 [facility] Comment on above: Performed By: #### C STELLA, CMP #### [facility] [address] [place] [address] [place] Creatinine [Mass/Vol] 0.67 mg/dL Normal 0.60-1.20 [facility] Comment on above: Performed By: #### C STELLA, CMP #### [facility] [address] [place] [address] [place] Creatinine Clr Calc Pharmacy 106.18 Normal [facility] Comment on above: Result Comment: PERF ORMED BY: [place] [address] PATHOLOGIST DETECTIVE AND INTELLIGENCE ANALYST ROOSEVELT KEYES M.D. Performed By: #### C STELLA, CMP #### [facility] [address] [place] [address] [place] GFR/1.73 sq M.predicted MDRD (S/P/Bld) [Vol rate/Area] mL/min/{1.73_m2} [facility] Comment on above: Performed By: #### C STELLA, CMP #### [facility] [address] Globulin (S) [Mass/Vol] 2.7 g/dL [facility] Comment on above: Performed By: #### C STELLA, CMP #### [address] Glucose [Mass/Vol] 96 mg/dL Normal 70-100 [facility] Comment on above: Result Comment: [facility] Glucose Reference Range is dependent on time and content of last meal. Glucose of more than 200 mg/dL in a nonstressed, ambulatory subject supports the diagnosis of Diabetes Mellitus. ADA recommended reference range Performed By: #### C STELLA, CMP #### [facility] [address] [place] [address] [place] Potassium [Moles/Vol] 3.8 mmol/L Normal 3.5-5.1 [facility] Comment on above: Performed By: #### C STELLA, CMP #### [facility] [address] [place] [address] [place] Protein [Mass/Vol] 6.5 g/dL Normal 6.4-8.9 [facility] Comment on above: Performed By: #### C STELLA, CMP #### [facility] [address] [place] [address] [place] Sodium [Moles/Vol] 138 mmol/L Normal 136-145 [facility] Comment on above: Performed By: #### C BCTED, CMP #### [facility] [address] Urea nitrogen [Mass/Vol] 8 mg/dL Normal 7-25 [facility] Comment on above: Performed By: #### C BCNO, CMP #### [facility] [address] [place] [id number] [facility] [place] esophagus ugion [place] esophagus ugi [facility] Main [place] [address] [place] [id number] Fluoroscopy Report Signed Patient: Constantino Cardoso MR#: [id number] : 1970 Acct:[id number] Age/Sex: 52 / F ADM Date: 03/26/23 Loc: Room: [address] [place] [address] Type: ADM IN Attending Dr: Deann Montalvo MD Copies to: MD Deann Blue MD Ordering Provider: Renny Gan MD Date of Service: 03/29/23 FL/[place] esophagus ugi: NAUSEA DOUBLE CONTRAST UPPER GI SERIES CLINICAL HISTORY: Nausea vomiting. History of Ramiro fundoplication. COMPARISON: None TECHNIQUE: Double contrast upper GI series was performed. Cumulative Air Kerma in mGy: 305.03 mGy FINDINGS: Service Writer image demonstrates no acute findings. The esophagus [...] Bateman Jr., D.O.03/29/2023 1:23 PM Dictation Location: [place] [address] Transcribed By: [facility] 03/29/23 1323 Dictated By: Tiburcio Bateman Jr, DO 03/29/23 1317 Signed By: 03/29/23 1323 Normal [facility] Hemogram CBC Without Diffon 03-29-2023 Erythrocyte distribution width (RBC) [Ratio] 13.4 % Normal 11.9-15.3 [facility] Comment on above: Performed By: #### C BCTED, CMP #### [address] Hematocrit (Bld) [Volume fraction] 35.4 % Normal 34.0-46.4 [facility] Comment on above: Performed By: #### C BCTED, CMP #### [address] Hemoglobin (Bld) [Mass/Vol] 12.0 g/dL Normal 11.8-15.4 [facility] Comment on above: Performed By: #### C STELLA, CMP #### [address] MCH (RBC) [Entitic mass] 29.2 pg Normal 24.7-34.3 [facility] Comment on above: Performed By: #### C BCTED, CMP #### [address] MCV (RBC) [Entitic vol] 86.0 fL Normal 80-100 [facility] Comment on above: Performed By: #### C STELLA, CMP #### [address] Mean Corpuscular HGB Conc 33.9 g/dL Normal 32.0-35.0 [facility] Comment on above: Performed By: #### C BCTED, CMP #### [address] Platelet mean volume (Bld) [Entitic vol] 7.6 fL Normal 6.3-10.7 [facility] Comment on above: Result Comment: PERF ORMED BY: [place] [address] PATHOLOGIST DETECTIVE AND INTELLIGENCE ANALYST ROOSEVELT KEYES M.D. Performed By: #### C BCTED, CMP #### [address] Platelets (Bld) [#/Vol] 288 10*3/uL Normal 150-450 [facility] Comment on above: Performed By: #### C STELLA, CMP #### [facility] [address] RBC (Bld) [#/Vol] 4.11 10*6/uL Normal 3.60-5.00 [facility] Comment on above: Performed By: #### C USAMANO, CMP #### [facility] [address] WBC (Bld) [#/Vol] 6.5 10*3/uL Normal 3.8-11.6 [facility] Comment on above: Performed By: #### C USAMANO, CMP #### [facility] [address] XR abdomen min 2Von 03-28-20 23 XR abdomen min 2V [facility] Main [place] [address] [place] [address] XRay Report Signed Patient: Constantino Cardoso MR#: [id number] : 1970 Acct:[id number] Age/Sex: 52 / F ADM Date: 03/26/23 Loc: Room: [address] [place] [address] Type: ADM IN Attending Dr: Deann Montalvo [...] Bateman Jr., D.O.03/28/2023 12:24 PM Dictation Location: [place] [address] Transcribed By: [facility] 03/28/23 1224 Dictated By: Tiburcio Bateman Jr, DO 03/28/23 1223 Signed By: 03/28/23 1224 Normal [facility] Complete Blood Count Auto Di ffon 03-27-2023 Basophils (Bld) [#/Vol] 0.0 10*3/uL Normal 0.0-0.2 [facility] Comment on above: Result Comment: PERF ORMED BY: [place] [address] PATHOLOGIST DETECTIVE AND INTELLIGENCE ANALYST ROOSEVELT KEYES M.D. Performed By: #### C BC #### [address] Basophils/100 WBC (Bld) 0.5 % Normal . [facility] Comment on above: Performed By: #### C BC #### [address] Eosinophils (Bld) [#/Vol] 0.2 10*3/uL Normal 0.0-0.45 [facility] Comment on above: Performed By: #### C BC #### [address] Eosinophils/100 WBC (Bld) 4.7 % Normal . [facility] Comment on above: Performed By: #### C BC #### [address] Erythrocyte distribution width (RBC) [Ratio] 13.6 % Normal 11.9-15.3 [facility] Comment on above: Performed By: #### C BC #### [address] Hematocrit (Bld) [Volume fraction] 34.1 % Normal 34.0-46.4 [facility] Comment on above: Performed By: #### C BC #### [place] [address] [place] Hemoglobin (Bld) [Mass/Vol] 11.4 g/dL Low 11.8-15.4 [facility] Comment on above: Performed By: #### C BC #### [place] [address] [place] Lymphocytes (Bld) [#/Vol] 1.3 10*3/uL Normal 1.00-4.8 [facility] Comment on above: Performed By: #### C BC #### [address] Lymphocytes/100 WBC (Bld) 32.8 % Normal . [facility] Comment on above: Performed By: #### C BC #### [address] MCH (RBC) [Entitic mass] 28.9 pg Normal 24.7-34.3 [facility] Comment on above: Performed By: #### C BC #### [address] MCV (RBC) [Entitic vol] 86.0 fL Normal 80-100 [facility] Comment on above: Performed By: #### C BC #### [address] Mean Corpuscular HGB Conc 33.6 g/dL Normal 32.0-35.0 [facility] Comment on above: Performed By: #### C BC #### [address] Monocytes (Bld) [#/Vol] 0.3 10*3/uL Normal 0.0-0.8 [facility] Comment on above: Performed By: #### C BC #### [address] Monocytes/100 WBC (Bld) 7.7 % Normal . [facility] Comment on above: Performed By: #### C BC #### [address] Neutrophils (Bld) [#/Vol] 2.1 10*3/uL Normal 1.8-7.7 [facility] Comment on above: Performed By: #### C BC #### [address] Neutrophils/100 WBC (Bld) 54.3 % Normal . [facility] Comment on above: Performed By: #### C BC #### [address] NRBC% 0.1 /100{WBC} Normal 0-0.5 [facility] Comment on above: Performed By: #### C BC #### [address] Platelet mean volume (Bld) [Entitic vol] 7.8 fL Normal 6.3-10.7 [facility] Comment on above: Performed By: #### C BC #### [address] Platelets (Bld) [#/Vol] 291 10*3/uL Normal 150-450 [facility] Comment on above: Performed By: #### C BC #### [address] RBC (Bld) [#/Vol] 3.97 10*6/uL Normal 3.60-5.00 [facility] Comment on above: Performed By: #### C BC #### [address] WBC (Bld) [#/Vol] 3.9 10*3/uL Normal 3.8-11.6 [facility] Comment on above: Performed By: #### C BC #### [address] Comprehensive Metabolic Pane miranda 03-27-2023 Albumin [Mass/Vol] 3.5 g/dL Normal 3.5-5.7 [facility] Comment on above: Performed By: #### H EPATIC, CBC, BMP, LIPASE #### [address] Albumin/Globulin [Mass ratio] 1.4 {ratio} Normal [facility] Comment on above: Performed By: #### H EPATIC, CBC, BMP, LIPASE #### [address] ALP [Catalytic activity/Vol] 91 U/L Normal 34-104 [facility] Comment on above: Performed By: #### H EPATIC, CBC, BMP, LIPASE #### [facility] [address] ALT [Catalytic activity/Vol] 10 U/L Normal 7-52 [facility] Comment on above: Performed By: #### H EPATIC, CBC, BMP, LIPASE #### [facility] [address] [place] [address] Anion gap [Moles/Vol] 6.9 mmol/L Normal 6.0-15.0 [facility] Comment on above: Performed By: #### H EPATIC, CBC, BMP, LIPASE #### [address] AST [Catalytic activity/Vol] 13 U/L Normal 13-39 [facility] Comment on above: Performed By: #### H EPATIC, CBC, BMP, LIPASE #### [address] Bilirubin [Mass/Vol] 0.5 mg/dL Normal 0.3-1.0 [facility] Comment on above: Performed By: #### H EPATIC, CBC, BMP, LIPASE #### [facility] [address] [place] [address] Calcium [Mass/Vol] 8.6 mg/dL Normal 8.6-10.3 [facility] Comment on above: Performed By: #### H EPATIC, CBC, BMP, LIPASE #### [facility] [address] [place] [address] [place] Chloride [Moles/Vol] 109 mmol/L High 98-107 [facility] Comment on above: Performed By: #### H EPATIC, CBC, BMP, LIPASE #### [facility] [address] [place] [address] CO2 [Moles/Vol] 28.9 mmol/L Normal 21.0-31.0 [facility] Comment on above: Performed By: #### H EPATIC, CBC, BMP, LIPASE #### [address] Creatinine [Mass/Vol] 0.72 mg/dL Normal 0.60-1.20 [facility] Comment on above: Performed By: #### H EPATIC, CBC, BMP, LIPASE #### [address] Creatinine Clr Calc Pharmacy 97.02 [facility] Comment on above: Performed By: #### H EPATIC, CBC, BMP, LIPASE #### [address] GFR/1.73 sq M.predicted MDRD (S/P/Bld) [Vol rate/Area] mL/min/{1.73_m2} [facility] Comment on above: Performed By: #### H EPATIC, CBC, BMP, LIPASE #### [address] Globulin (S) [Mass/Vol] 2.5 g/dL [facility] Comment on above: Performed By: #### H EPATIC, CBC, BMP, LIPASE #### [address] Glucose [Mass/Vol] 104 mg/dL High 70-100 [facility] Comment on above: Result Comment: [facility] Glucose Reference Range is dependent on time and content of last meal. Glucose of more than 200 mg/dL in a nonstressed, ambulatory subject supports the diagnosis of Diabetes Mellitus. ADA recommended reference range Performed By: #### H EPATIC, CBC, BMP, LIPASE #### [address] Potassium [Moles/Vol] 3.8 mmol/L Normal 3.5-5.1 [facility] Comment on above: Performed By: #### H EPATIC, CBC, BMP, LIPASE #### [address] Protein [Mass/Vol] 6.0 g/dL Low 6.4-8.9 [facility] Comment on above: Performed By: #### H EPATIC, CBC, BMP, LIPASE #### [address] Sodium [Moles/Vol] 141 mmol/L Normal 136-145 [facility] Comment on above: Performed By: #### H EPATIC, CBC, BMP, LIPASE #### [address] Urea nitrogen [Mass/Vol] 10 mg/dL Normal 7-25 [facility] Comment on above: Performed By: #### H EPATIC, CBC, BMP, LIPASE #### [facility] [address] [place] [address] Lipaseon 03-27-2023 Lipase [Catalytic activity/Vol] 14.0 U/L Normal 11.0-82.0 [facility] Comment on above: Result Comment: PERF ORMED BY: [place] [address] PATHOLOGIST DETECTIVE AND INTELLIGENCE ANALYST ROOSEVELT KEYES M.D. Performed By: #### H EPATIC, CBC, BMP, LIPASE #### [address] Magnesiumon 03-27-2023 Magnesium [Mass/Vol] 1.8 mg/dL Low 1.9-2.7 [facility] Comment on above: Performed By: #### H EPATIC, CBC, BMP, LIPASE #### [address] angio abdomen pelvison CT angio abdomen pelvis [facility] Main [place] [address] [place] [address] CT Scan Report Signed Patient: Constantino Cardoso MR#: [id number] : 1970 Acct:[id number] Age/Sex: 52 / F ADM Date: 03/26/23 Loc: Room: [address] [place] [address] Type: ADM IN Attending Dr: Raf Steward [...] Nora Benites M.D.03/26/2023 9:41 AM Dictation Location: [place] [address] Transcribed By: [facility] 03/26/2341 Dictated By: Nora Benites II, MD 03/26/23 0935 Signed By: 03/26/23 0941 [facility] CT angio cheston 03-26-2023 CT angio chest [facility] Main [place] [address] [place] [address] CT Scan Report Signed Patient: Constantino Cardoso MR#: [id number] : 1970 Acct:[id number] Age/Sex: 52 / F ADM Date: 03/26/23 Loc: Room: [address] [place] [address] Type: ADM IN Attending Dr: Raf Steward [...] Nora Benites M.D.03/26/2023 9:34 AM Dictation Location: [place] [address] Transcribed By: [facility] 03/26/23933 Dictated By: Nora Benites II, MD 03/26/2330 Signed By: 03/26/23933 [facility] Comprehensive Metabolic Pane miranda 03-26-2023 Albumin [Mass/Vol] 3.8 g/dL Normal 3.5-5.7 [facility] Comment on above: Performed By: #### P ORS #### [address] Albumin/Globulin [Mass ratio] 1.6 {ratio} Normal [facility] Comment on above: Performed By: #### P ORS #### [address] ALP [Catalytic activity/Vol] 105 U/L High 34-104 [facility] Comment on above: Performed By: #### P ORS #### [address] ALT [Catalytic activity/Vol] 11 U/L Normal 7-52 [facility] Comment on above: Performed By: #### P ORS #### [address] Anion gap [Moles/Vol] 9.7 mmol/L Normal 6.0-15.0 [facility] Comment on above: Performed By: #### P ORS #### [facility] [address] [place] [address] AST [Catalytic activity/Vol] 14 U/L Normal 13-39 [facility] Comment on above: Performed By: #### P ORS #### [address] Bilirubin [Mass/Vol] 0.4 mg/dL Normal 0.3-1.0 [facility] Comment on above: Performed By: #### P ORS #### [address] Calcium [Mass/Vol] 8.6 mg/dL Normal 8.6-10.3 [facility] Comment on above: Performed By: #### P ORS #### [facility] [address] [place] [address] Chloride [Moles/Vol] 107 mmol/L Normal 98-107 [facility] Comment on above: Performed By: #### P ORS #### [address] CO2 [Moles/Vol] 25.3 mmol/L Normal 21.0-31.0 [facility] Comment on above: Performed By: #### P ORS #### [facility] [address] Creatinine [Mass/Vol] 0.76 mg/dL Normal 0.60-1.20 [facility] Comment on above: Performed By: #### P ORS #### [place] [address] [place] Creatinine Clr Calc Pharmacy 92.46 [facility] Comment on above: Performed By: #### P ORS #### [place] [address] [place] GFR/1.73 sq M.predicted MDRD (S/P/Bld) [Vol rate/Area] mL/min/{1.73_m2} [facility] Comment on above: Performed By: #### P ORS #### [address] Globulin (S) [Mass/Vol] 2.4 g/dL [facility] Comment on above: Performed By: #### P ORS #### [address] Glucose [Mass/Vol] 122 mg/dL High 70-100 [facility] Comment on above: Result Comment: [facility] Glucose Reference Range is dependent on time and content of last meal. Glucose of more than 200 mg/dL in a nonstressed, ambulatory subject supports the diagnosis of Diabetes Mellitus. ADA recommended reference range Performed By: #### P ORS #### [address] Potassium [Moles/Vol] 4.0 mmol/L Normal 3.5-5.1 [facility] Comment on above: Performed By: #### P ORS #### [address] Protein [Mass/Vol] 6.2 g/dL Low 6.4-8.9 [facility] Comment on above: Performed By: #### P ORS #### [address] Sodium [Moles/Vol] 138 mmol/L Normal 136-145 [facility] Comment on above: Performed By: #### P ORS #### [facility] [address] [place] [address] Urea nitrogen [Mass/Vol] 12 mg/dL Normal 7-25 [facility] Comment on above: Performed By: #### P ORS #### [address] Drug Screen,Urineon 03-26-20 Amphetamine Screen,Urine Negative Normal Negative [facility] Comment on above: Performed By: #### H EPATIC, CBC, BMP, LIPASE #### [address] Barbiturate Screen,Urine Negative Normal Negative [facility] Comment on above: Performed By: #### H EPATIC, CBC, BMP, LIPASE #### [address] Benzodiazepines Screen,Urine Negative Normal Negative [facility] Comment on above: Performed By: #### H EPATIC, CBC, BMP, LIPASE #### [address] Cannabinoid Screen,Urine Negative Normal Negative [facility] Comment on above: Result Comment: Thes e are unconfirmed results and should not be used for legal purposes. Drug Cut-Off Concentration: AMPH 1000 ng/mL HAWA 200 ng/mL ELSA 200 ng/mL COCM 300 ng/mL OP 300 ng/mL PCP 25 ng/mL THC 20 ng/mL PERFORMED BY: [place] [address] PATHOLOGIST DETECTIVE AND INTELLIGENCE ANALYST ROOSEVELT KEYES M.D. Performed By: #### H EPATIC, CBC, BMP, LIPASE #### [address] Cocaine Screen,Urine Negative Normal Negative [facility] Comment on above: Performed By: #### H EPATIC, CBC, BMP, LIPASE #### [address] Opiate Screen,Urine Positive High Negative [facility] Comment on above: Performed By: #### H EPATIC, CBC, BMP, LIPASE #### [facility] [address] Phencyclidine Screen,Urine Negative Normal Negative [facility] Comment on above: Performed By: #### H EPATIC, CBC, BMP, LIPASE #### [facility] [address] [place] [phone] [place] [facility] echo transthoracicon [facility] echo transthoracic [facility] Main [place] [address] [place] [address] Echocardiogram Signed Patient: Constantino Cardoso MR#: [id number] : 1970 Acct:[id number] Age/Sex: 52 / F ADM Date: 03/26/23 Loc: Room: [address] [place] [address] Type: ADM IN Attending Dr: Raf Steward MD Ordering Provider: Ron Fair MD Date of Service: 03/26/23 [facility] echo transthoracic: chest pain Copies to: MD Holly Lieberman MD, [facility] BSA: 1.9 m2 BP: 155/86 mmHg [...] 03/26/23 0909 Signed By: Holly Castro MD, [facility] 03/26/23 1148 Normal [facility] Hepatic Panelon 03-26-2023 Bilirubin,Indirect 0.3 mg/dL Normal [facility] Comment on above: Performed By: #### P ORS #### [facility] [address] Bilirubin.indirect [Mass/Vol] 0.10 mg/dL Normal 0.03-0.18 [facility] Comment on above: Performed By: #### P ORS #### [facility] [address] Lactic Acidon 03-26-2023 Lactate [Moles/Vol] 0.5 mmol/L Normal 0.5-2.2 [facility] Comment on above: Result Comment: PERF ORMED BY: [place] [address] PATHOLOGIST DETECTIVE AND INTELLIGENCE ANALYST ROOSEVELT KEYES M.D. Performed By: #### L ACTIC, HEPATIC, LIPASE, CMP, HS TROP, MG #### [facility] [address] Lipaseon 03-26-2023 Lipase [Catalytic activity/Vol] 8.0 U/L Low 11.0-82.0 [facility] Comment on above: Result Comment: PERF ORMED BY: [place] [address] PATHOLOGIST DETECTIVE AND INTELLIGENCE ANALYST ROOSEVELT KEYES M.D. Performed By: #### P ORS #### [facility] [address] Magnesiumon 03-26-2023 Magnesium [Mass/Vol] 1.8 mg/dL Low 1.9-2.7 [facility] Comment on above: Performed By: #### P ORS #### [facility] [address] [place] [address] [place] Porphyrins,Stoolon 3 Porphyrins,Stool Normal [facility] Comment on above: Result Comment: See report. Scanned copy available in EMR. PERFORMED BY: [place] [address] PATHOLOGIST DETECTIVE AND INTELLIGENCE ANALYST ROOSEVELT KEYES M.D. Performed By: #### P ORS #### [facility] [address] [place] [address] Troponin I High Sensitivityo n 03-26-2023 Troponin I High Sensitivity 13.8 pg/mL Normal 0.0-15.0 [facility] Comment on above: Result Comment: PERF ORMED BY: [place] [address] PATHOLOGIST DETECTIVE AND INTELLIGENCE ANALYST ROOSEVELT KEYES M.D. Performed By: #### H EPATIC, CBC, BMP, LIPASE #### [facility] [address] [place] [address] Troponin I High Sensitivity 14.1 pg/mL Normal 0.0-15.0 [facility] Comment on above: Result Comment: PERF ORMED BY: [place] [address] PATHOLOGIST DETECTIVE AND INTELLIGENCE ANALYST ROOSEVELT KEYES M.D. Performed By: #### P ORS #### [facility] [address] [place] [address] Alanine aminotransferase [En zymatic activity/volume] in Serum or PlasmaOrdered By: Pete Thakkar on 03-23-2023 ALT [Catalytic activity/Vol] 11 U/L 7-52 [facility] Albumin [Mass/volume] in Ser um or Plasma by Bromocresol green (BCG) dye binding methoOrdered By: Pete Thakkar on 03-23-2023 Albumin BCG dye [Mass/Vol] 4.1 g/dL 3.5-5.7 [facility] Alkaline phosphatase [Enzyma tic activity/volume] in Serum or PlasmaOrdered By: Pete Thakkar on 03-23-2023 ALP [Catalytic activity/Vol] 115 U/L 34-104 [facility] Aspartate aminotransferase [ Enzymatic activity/volume] in Serum or PlasmaOrdered By: Pete Thakkar on 03-23-2023 AST [Catalytic activity/Vol] 15 U/L 13-39 [facility] Automated erythrocytes count in urine sediment (number/area)Ordered By: Pete Thakkar on 03-23-2023 RBC Auto (Urine sed) [#/Area] 0-1 [HPF] 0-4 [facility] Automated leukocytes count i n urine sediment (number/area)Ordered By: Pete Thakkar on 03-23-2023 WBC Auto (Urine sed) [#/Area] 0-1 [HPF] 0-4 [facility] Basic Metabolic Panelon 03-05 Anion gap [Moles/Vol] 10.1 mmol/L Normal 6.0-15.0 [facility] Comment on above: Performed By: #### H EPATIC, CBC, BMP, LIPASE #### [facility] [address] Calcium [Mass/Vol] 9.0 mg/dL Normal 8.6-10.3 [facility] Comment on above: Performed By: #### H EPATIC, CBC, BMP, LIPASE #### [facility] [address] Chloride [Moles/Vol] 111 mmol/L High 98-107 [facility] Comment on above: Performed By: #### H EPATIC, CBC, BMP, LIPASE #### [facility] [address] [place] [address] [place] CO2 [Moles/Vol] 24.5 mmol/L Normal 21.0-31.0 [facility] Comment on above: Performed By: #### H EPATIC, CBC, BMP, LIPASE #### [facility] [address] Creatinine [Mass/Vol] 0.72 mg/dL Normal 0.60-1.20 [facility] Comment on above: Performed By: #### H EPATIC, CBC, BMP, LIPASE #### [facility] [address] [place] [address] Creatinine Clr Calc Pharmacy 105.27 [facility] Comment on above: Performed By: #### H EPATIC, CBC, BMP, LIPASE #### [address] GFR/1.73 sq M.predicted MDRD (S/P/Bld) [Vol rate/Area] mL/min/{1.73_m2} [facility] Comment on above: Performed By: #### H EPATIC, CBC, BMP, LIPASE #### [address] Glucose [Mass/Vol] 79 mg/dL Normal 70-100 [facility] Comment on above: Result Comment: [facility] Glucose Reference Range is dependent on time and content of last meal. Glucose of more than 200 mg/dL in a nonstressed, ambulatory subject supports the diagnosis of Diabetes Mellitus. ADA recommended reference range Performed By: #### H EPATIC, CBC, BMP, LIPASE #### [address] Potassium [Moles/Vol] 3.6 mmol/L Normal 3.5-5.1 [facility] Comment on above: Performed By: #### H EPATIC, CBC, BMP, LIPASE #### [address] Sodium [Moles/Vol] 142 mmol/L Normal 136-145 [facility] Comment on above: Performed By: #### H EPATIC, CBC, BMP, LIPASE #### [address] Urea nitrogen [Mass/Vol] 24 mg/dL Normal 7-25 [facility] Comment on above: Performed By: #### H EPATIC, CBC, BMP, LIPASE #### [address] Basophils Auto (Bld) [#/Vol] Ordered By: Pete Thakkar on 03-23-2023 Basophils (Bld) [#/Vol] 0.1 10*3/uL 0.0-0.2 [facility] Basophils/100 WBC Auto (Bld) Ordered By: Pete Thakkar on 03-23-2023 Basophils/100 WBC (Bld) 1.0 % . [facility] Bilirubin Test strip Ql (U)O rdered By: Pete Thakkar on 03-23-2023 Bilirubin Ql (U) Negative Negative [facility] Bilirubin.direct [Mass/volum e] in Serum or PlasmaOrdered By: Pete Thakkar on 03-23-2023 Bilirubin.direct [Mass/Vol] 0.10 mg/dL 0.03-0.18 [facility] Bilirubin.total [Mass/volume ] in Serum or PlasmaOrdered By: Pete Thakkar on 03-23-2023 Bilirubin [Mass/Vol] 0.3 mg/dL 0.3-1.0 [facility] CT abdomen pelvis w conon CT abdomen pelvis w con [facility] [address] CT Scan Report Signed Patient: Constantino Cardoso MR#: [id number] : 1970 Acct:[id number] Age/Sex: 52 / F ADM Date: 03/23/23 Loc: ER Room: Type: [facility] ER Attending Dr: Copies to: Pete Thakkar [...] Columba Domínguez M.D.03/23/2023 7:47 AM Dictation Location: [place] [address] Transcribed By: [facility] 03/23/2347 Dictated By: Columba Domínguez MD 03/23/23 0742 Signed By: 03/23/2347 Normal [facility] Calcium [Mass/volume] in Ser um or PlasmaOrdered By: Pete Thakkar on 03-23-2023 Calcium [Mass/Vol] 9.0 mg/dL 8.6-10.3 [facility] Carbon dioxide, total [Moles /volume] in Serum or PlasmaOrdered By: Pete Thakkar on 03-23-2023 CO2 [Moles/Vol] 24.5 mmol/L 21.0-31.0 [facility] Chloride [Moles/volume] in S cristine or PlasmaOrdered By: Pete Thakkar on 03-23-2023 Chloride [Moles/Vol] 111 mmol/L 98-107 [facility] Color Auto (U)Ordered By: Shoaib Thakkar on 03-23-2023 Color (U) Yellow Yellow [facility] Complete Blood Count Auto Di ffon 03-23-2023 Basophils (Bld) [#/Vol] 0.1 10*3/uL Normal 0.0-0.2 [facility] Comment on above: Result Comment: PERF ORMED BY: [facility] [address] [place] [address] PATHOLOGIST DETECTIVE AND INTELLIGENCE ANALYST ROOSEVELT KEYES M.D. Performed By: #### H EPATIC, CBC, BMP, LIPASE #### [address] Basophils/100 WBC (Bld) 1.0 % Normal . [facility] Comment on above: Performed By: #### H EPATIC, CBC, BMP, LIPASE #### [address] Eosinophils (Bld) [#/Vol] 0.3 10*3/uL Normal 0.0-0.45 [facility] Comment on above: Performed By: #### H EPATIC, CBC, BMP, LIPASE #### [address] Eosinophils/100 WBC (Bld) 5.0 % Normal . [facility] Comment on above: Performed By: #### H EPATIC, CBC, BMP, LIPASE #### [address] Erythrocyte distribution width (RBC) [Ratio] 13.6 % Normal 11.9-15.3 [facility] Comment on above: Performed By: #### H EPATIC, CBC, BMP, LIPASE #### [address] Hematocrit (Bld) [Volume fraction] 35.7 % Normal 34.0-46.4 [facility] Comment on above: Performed By: #### H EPATIC, CBC, BMP, LIPASE #### [address] Hemoglobin (Bld) [Mass/Vol] 12.0 g/dL Normal 11.8-15.4 [facility] Comment on above: Performed By: #### H EPATIC, CBC, BMP, LIPASE #### [address] Lymphocytes (Bld) [#/Vol] 2.3 10*3/uL Normal 1.00-4.8 [facility] Comment on above: Performed By: #### H EPATIC, CBC, BMP, LIPASE #### [address] Lymphocytes/100 WBC (Bld) 36.1 % Normal . [facility] Comment on above: Performed By: #### H EPATIC, CBC, BMP, LIPASE #### [address] MCH (RBC) [Entitic mass] 29.2 pg Normal 24.7-34.3 [facility] Comment on above: Performed By: #### H EPATIC, CBC, BMP, LIPASE #### [address] MCV (RBC) [Entitic vol] 86.7 fL Normal 80-100 [facility] Comment on above: Performed By: #### H EPATIC, CBC, BMP, LIPASE #### [address] Mean Corpuscular HGB Conc 33.7 g/dL Normal 32.0-35.0 [facility] Comment on above: Performed By: #### H EPATIC, CBC, BMP, LIPASE #### [address] Monocytes (Bld) [#/Vol] 0.5 10*3/uL Normal 0.0-0.8 [facility] Comment on above: Performed By: #### H EPATIC, CBC, BMP, LIPASE #### [address] Monocytes/100 WBC (Bld) 16.44 % Normal 0.00-20.00 [facility] Comment on above: Performed By: #### H EPATIC, CBC, BMP, LIPASE #### [address] Monocytes/100 WBC (Bld) 7.7 % Normal . [facility] Comment on above: Performed By: #### H EPATIC, CBC, BMP, LIPASE #### [address] Neutrophils (Bld) [#/Vol] 3.2 10*3/uL Normal 1.8-7.7 [facility] Comment on above: Performed By: #### H EPATIC, CBC, BMP, LIPASE #### [address] Neutrophils/100 WBC (Bld) 50.2 % Normal . [facility] Comment on above: Performed By: #### H EPATIC, CBC, BMP, LIPASE #### [address] NRBC% 0.1 /100{WBC} Normal 0-0.5 [facility] Comment on above: Performed By: #### H EPATIC, CBC, BMP, LIPASE #### [address] Platelet mean volume (Bld) [Entitic vol] 7.6 fL Normal 6.3-10.7 [facility] Comment on above: Performed By: #### H EPATIC, CBC, BMP, LIPASE #### [address] Platelets (Bld) [#/Vol] 357 10*3/uL Normal 150-450 [facility] Comment on above: Performed By: #### H EPATIC, CBC, BMP, LIPASE #### [address] RBC (Bld) [#/Vol] 4.12 10*6/uL Normal 3.60-5.00 [facility] Comment on above: Performed By: #### H EPATIC, CBC, BMP, LIPASE #### [address] WBC (Bld) [#/Vol] 6.3 10*3/uL Normal 3.8-11.6 [facility] Comment on above: Performed By: #### H EPATIC, CBC, BMP, LIPASE #### [address] Creatinine [Mass/volume] in Serum or PlasmaOrdered By: Pete Thakkar on 03-23-2023 Creatinine [Mass/Vol] 0.72 mg/dL 0.60-1.20 [facility] Dipstick and Microscopicon 0 03-23-2023 Appearance (U) Clear Normal Clear [facility] Comment on above: Order Comment: Name Collection Type:: Clean-Voided Midstream Performed By: #### P ORS #### [facility] [address] Bacteria,Urine 1+ High None Seen [facility] Comment on above: Order Comment: Name Collection Type:: Clean-Voided Midstream Performed By: #### P ORS #### [facility] [address] [place] [address] [place] Bilirubin,Urine Negative Normal Negative [facility] Comment on above: Order Comment: Name Collection Type:: Clean-Voided Midstream Performed By: #### P ORS #### [address] Color (U) Yellow Normal Yellow [facility] Comment on above: Order Comment: Name Collection Type:: Clean-Voided Midstream Performed By: #### P ORS #### [facility] [address] [place] [address] Glucose Ql (U) Normal Normal Normal [facility] Comment on above: Order Comment: Name Collection Type:: Clean-Voided Midstream Performed By: #### P ORS #### [place] [address] [place] Hyaline Casts,Urine None Seen Normal 0-8 [facility] Comment on above: Order Comment: Name Collection Type:: Clean-Voided Midstream Result Comment: PERF ORMED BY: [place] [address] PATHOLOGIST DETECTIVE AND INTELLIGENCE ANALYST ROOSEVELT KEYES M.D. Performed By: #### P ORS #### [facility] [address] [place] [address] [place] Ketones Ql (U) Negative Normal Negative [facility] Comment on above: Order Comment: Name Collection Type:: Clean-Voided Midstream Performed By: #### P ORS #### [facility] [address] [place] [address] [place] Leukocyte esterase Test strip Ql (U) Negative Normal Negative [facility] Comment on above: Order Comment: Name Collection Type:: Clean-Voided Midstream Performed By: #### P ORS #### [address] Nitrite,Urine Negative Normal Negative [facility] Comment on above: Order Comment: Name Collection Type:: Clean-Voided Midstream Performed By: #### P ORS #### [address] Occult Blood,Urine Trace High Negative [facility] Comment on above: Order Comment: Name Collection Type:: Clean-Voided Midstream Result Comment: PERF ORMED BY: [place] [address] PATHOLOGIST DETECTIVE AND INTELLIGENCE ANALYST ROOSEVELT KEYES M.D. Performed By: #### P ORS #### [address] pH (U) 5.0 [pH] Normal 5.0-9.0 [facility] Comment on above: Order Comment: Name Collection Type:: Clean-Voided Midstream Performed By: #### P ORS #### [address] Protein,Urine Negative Normal Negative [facility] Comment on above: Order Comment: Name Collection Type:: Clean-Voided Midstream Performed By: #### P ORS #### [address] RBC LM.HPF (Urine sed) [#/Area] 0 /[HPF] Normal 0-4 [facility] Comment on above: Order Comment: Name Collection Type:: Clean-Voided Midstream Performed By: #### P ORS #### [address] Specificy [place],Urine 1.048 High 1.001-1.030 [facility] Comment on above: Order Comment: Name Collection Type:: Clean-Voided Midstream Performed By: #### P ORS #### [address] Squamous Epithelial Cell,Urine None Seen Normal 0-2 [facility] Comment on above: Order Comment: Name Collection Type:: Clean-Voided Midstream Performed By: #### P ORS #### [facility] [address] Urobilinogen,Urine Normal Normal Normal [facility] Comment on above: Order Comment: Name Collection Type:: Clean-Voided Midstream Performed By: #### P ORS #### [facility] [address] [place] [address] WBC LM.HPF (Urine sed) [#/Area] 0 /[HPF] Normal 0-4 [facility] Comment on above: Order Comment: Name Collection Type:: Clean-Voided Midstream Performed By: #### P ORS #### [facility] [address] [place] [address] Eosinophils Auto (Bld) [#/Vo l]Ordered By: Pete Thakkar on 03-23-2023 Eosinophils (Bld) [#/Vol] 0.3 10*3/uL 0.0-0.45 [facility] Eosinophils/100 WBC Auto (Bl d)Ordered By: Pete Thakkar on 03-23-2023 Eosinophils/100 WBC (Bld) 5.0 % . [facility] Erythrocyte distribution wid th Auto (RBC) [Ratio]Ordered By: Pete Thakkar on 03-23-2023 Erythrocyte distribution width (RBC) [Ratio] 13.6 % 11.9-15.3 [facility] Globulin Calc (S) [Mass/Vol] Ordered By: Pete Thakkar on 03-23-2023 Globulin (S) [Mass/Vol] 2.9 g/dL [facility] Glucose [Mass/volume] in Ser um or PlasmaOrdered By: Pete Thakkar on 03-23-2023 Glucose [Mass/Vol] 79 mg/dL 70-100 [facility] Comment on above: ADA recommended refe rence rangeRandom Glucose Reference Range is dependent on time and content of last meal. Glucose of more than 200 mg/dL in a nonstressed, ambulatory subject supports the diagnosis of Diabetes Mellitus. Hematocrit Auto (Bld) [Volum e fraction]Ordered By: Pete Thakkar on 03-23-2023 Hematocrit (Bld) [Volume fraction] 35.7 % 34.0-46.4 [facility] Hemoglobin [Mass/volume] in BloodOrdered By: Pete Bijan on 03-23-2023 Hemoglobin (Bld) [Mass/Vol] 12.0 g/dL 11.8-15.4 [facility] Hepatic Panelon 03-23-2023 Albumin [Mass/Vol] 4.1 g/dL Normal 3.5-5.7 [facility] Comment on above: Performed By: #### H EPATIC, CBC, BMP, LIPASE #### [facility] [address] Albumin/Globulin [Mass ratio] 1.4 {ratio} Normal [facility] Comment on above: Performed By: #### H EPATIC, CBC, BMP, LIPASE #### [facility] [address] ALP [Catalytic activity/Vol] 115 U/L High 34-104 [facility] Comment on above: Performed By: #### H EPATIC, CBC, BMP, LIPASE #### [facility] [address] [place] [address] [place] ALT [Catalytic activity/Vol] 11 U/L Normal 7-52 [facility] Comment on above: Performed By: #### H EPATIC, CBC, BMP, LIPASE #### [facility] [address] [place] [id number] [place] AST [Catalytic activity/Vol] 15 U/L Normal 13-39 [facility] Comment on above: Performed By: #### H EPATIC, CBC, BMP, LIPASE #### [facility] [address] [place] [id number] [place] Bilirubin [Mass/Vol] 0.3 mg/dL Normal 0.3-1.0 [facility] Comment on above: Performed By: #### H EPATIC, CBC, BMP, LIPASE #### [facility] [address] [place] [address] [place] Bilirubin,Indirect 0.2 mg/dL Normal [facility] Comment on above: Performed By: #### H EPATIC, CBC, BMP, LIPASE #### [facility] [address] Bilirubin.indirect [Mass/Vol] 0.10 mg/dL Normal 0.03-0.18 [facility] Comment on above: Performed By: #### H EPATIC, CBC, BMP, LIPASE #### [facility] [address] Globulin (S) [Mass/Vol] 2.9 g/dL Normal [facility] Comment on above: Performed By: #### H EPATIC, CBC, BMP, LIPASE #### [address] Protein [Mass/Vol] 7.0 g/dL Normal 6.4-8.9 [facility] Comment on above: Performed By: #### H EPATIC, CBC, BMP, LIPASE #### [address] Ketones Auto test strip (U) [Mass/Vol]Ordered By: Pete Thakkar on 03-23-2023 Ketones (U) [Mass/Vol] Negative Negative [facility] Laboratory - UrinalysisOrder ed By: Pete Thakkar on 03-23-2023 Hyaline casts LM Ql (Urine sed) None seen [LPF] 0-8 [facility] Leukocytes [#/volume] correc jun for nucleated erythrocytes in Blood by Automated counOrdered By: Pete Thakkar on 03-23-2023 WBC corrected for nucl RBC Auto (Bld) [#/Vol] 6.3 10*3/uL 3.8-11.6 [facility] Lipaseon 03-23-2023 Lipase [Catalytic activity/Vol] 32.0 U/L Normal 11.0-82.0 [facility] Comment on above: Result Comment: PERF ORMED BY: [place] [address] PATHOLOGIST DETECTIVE AND INTELLIGENCE ANALYST ROOSEVELT KEYES M.D. Performed By: #### H EPATIC, CBC, BMP, LIPASE #### [address] Lipase [Enzymatic activity/v olume] in Serum or PlasmaOrdered By: Pete Thakkar on 03-23-2023 Lipase [Catalytic activity/Vol] 32.0 U/L 11.0-82.0 [facility] Lymphocytes Auto (Bld) [#/Vo l]Ordered By: Pete Thakkar on 03-23-2023 Lymphocytes (Bld) [#/Vol] 2.3 10*3/uL 1.00-4.8 [facility] Lymphocytes/100 WBC Auto (Bl d)Ordered By: Pete Thakkar on 03-23-2023 Lymphocytes/100 WBC (Bld) 36.1 % . [facility] MCH Auto (RBC) [Entitic mass ]Ordered By: Pete Thakkar on 03-23-2023 MCH (RBC) [Entitic mass] 29.2 pg 24.7-34.3 [facility] MCHC Auto (RBC) [Mass/Vol]Or dered By: Pete Thakkar on 03-23-2023 MCHC (RBC) [Mass/Vol] 33.7 g/dL 32.0-35.0 [facility] MCV Auto (RBC) [Entitic vol] Ordered By: Pete Thakkar on 03-23-2023 MCV (RBC) [Entitic vol] 86.7 fL 80-100 [facility] Monocyte distribution width [Entitic volume] in Blood by AutomatedOrdered By: Pete Thakkar on 03-23-2023 Monocyte distribution width Auto (Bld) [Entitic vol] 16.44 % 0.00-20.00 [facility] Monocytes Auto (Bld) [#/Vol] Ordered By: Pete Thakkar on 03-23-2023 Monocytes (Bld) [#/Vol] 0.5 10*3/uL 0.0-0.8 [facility] Monocytes/100 WBC Auto (Bld) Ordered By: Pete Thakkar on 03-23-2023 Monocytes/100 WBC (Bld) 7.7 % . [facility] Neutrophils Auto (Bld) [#/Vo l]Ordered By: Pete Thakkar on 03-23-2023 Neutrophils (Bld) [#/Vol] 3.2 10*3/uL 1.8-7.7 [facility] Neutrophils/100 WBC Auto (Bl d)Ordered By: Pete Thakkar on 03-23-2023 Neutrophils/100 WBC (Bld) 50.2 % . [facility] Nitrite Test strip Ql (U)Ord ered By: Pete Thakkar on 03-23-2023 Nitrite Ql (U) Negative Negative [facility] No Panel InformationOrdered By: Pete Thakkar on 03-23-2023 Estimated GFR (CKD-EPI) > 60.0 mL/Min [facility] Creatinine Clearance (Chem 105.27 [facility] Nucleated erythrocytes [Pres ence] in Blood by Automated countOrdered By: Pete Thakkar on 03-23-2023 Nucleated RBC Auto Ql (Bld) 0.1 /100{WBC} 0-0.5 [facility] Platelet mean volume Auto (B ld) [Entitic vol]Ordered By: Pete Thakkar on 03-23-2023 Platelet mean volume (Bld) [Entitic vol] 7.6 fL 6.3-10.7 [facility] Platelets Auto (Bld) [#/Vol] Ordered By: Pete Thakkar on 03-23-2023 Platelets (Bld) [#/Vol] 357 10*3/uL 150-450 [facility] Potassium [Moles/volume] in Serum or PlasmaOrdered By: Pete Thakkar on 03-23-2023 Potassium [Moles/Vol] 3.6 mmol/L 3.5-5.1 [facility] Protein Auto test strip (U) [Mass/Vol]Ordered By: Pete Thakkar on 03-23-2023 Protein (U) [Mass/Vol] Negative Negative [facility] Protein [Mass/volume] in Ser um or PlasmaOrdered By: Pete Thakkar on 03-23-2023 Protein [Mass/Vol] 7.0 g/dL 6.4-8.9 [facility] RBC Auto (Bld) [#/Vol]Ordere d By: Pete Thakkar on 03-23-2023 RBC (Bld) [#/Vol] 4.12 10*6/uL 3.60-5.00 [facility] Serum or plasma albumin/glob ulin mass ratioOrdered By: Pete Thakkar on 03-23-2023 Albumin/Globulin [Mass ratio] 1.4 {ratio} [facility] Serum or plasma anion gap de terminationOrdered By: Pete Thakkar on 03-23-2023 Anion gap [Moles/Vol] 10.1 mmol/L 6.0-15.0 [facility] Serum or plasma non-glucuron idated bilirubin measurement (mass/volume)Ordered By: Pete Thakkar on 03-23-2023 Bilirubin.indirect [Mass/Vol] 0.2 mg/dL [facility] Sodium [Moles/volume] in Ser um or PlasmaOrdered By: Pete Thakkar on 03-23-2023 Sodium [Moles/Vol] 142 mmol/L 136-145 [facility] Specific gravity Auto test s trip (U) [Rel density]Ordered By: Pete Thakkar on 03-23-2023 Specific gravity (U) [Rel density] 1.048 1.001-1.030 [facility] Squamous epithelial cells de tection in urine sediment by light microscopyOrdered By: Pete Thakkar on 03-23-2023 Epithelial cells.squamous LM Ql (Urine sed) None seen [HPF] 0-2 [facility] Troponin I High Sensitivityo n 03-23-2023 Troponin I High Sensitivity 12.2 pg/mL Normal 0.0-15.0 [facility] Comment on above: Result Comment: PERF ORMED BY: [place] [address] PATHOLOGIST DETECTIVE AND INTELLIGENCE ANALYST ROOSEVELT KEYES M.D. Performed By: #### H S TROP #### [address] Troponin I.cardiac [Mass/vol ume] in Serum or Plasma by Detection limit <= 0.01 ng/Ordered By: Pete Thakkar on 03-23-2023 Troponin I.cardiac DL <= 0.01 ng/mL [Mass/Vol] 12.2 pg/mL 0.0-15.0 [facility] Urea nitrogen [Mass/volume] in Serum or PlasmaOrdered By: Pete Thakkar on 03-23-2023 Urea nitrogen [Mass/Vol] 24 mg/dL 7-25 [facility] Urine bacteria detection by automated methodOrdered By: Pete Thakkar on 03-23-2023 Bacteria Auto Ql (U) 1+ None Seen [facility] Urine clarity by refractomet ry automatedOrdered By: Pete Thakkar on 03-23-2023 Clarity Refractometry automated (U) Clear Clear [facility] Urine glucose measurement by automated test strip (mass/volume)Ordered By: Pete Thakkar on 03-23-2023 Glucose Auto test strip (U) [Mass/Vol] Normal mg/dL Normal [facility] Urine hemoglobin detection b y automated test stripOrdered By: Pete Thakkar on 03-23-2023 Hemoglobin Auto test strip Ql (U) Trace Negative [facility] Urine leukocyte esterase det ection by automated test stripOrdered By: Pete Thakkar on 03-23-2023 Leukocyte esterase Auto test strip Ql (U) Negative Negative [facility] Urobilinogen Auto test strip (U) [Mass/Vol]Ordered By: Pete Thakkar on 03-23-2023 Urobilinogen (U) [Mass/Vol] Normal mg/dL Normal [facility] WBC Auto (Bld) [#/Vol]Ordere d By: Pete Thakkar on 03-23-2023 WBC (Bld) [#/Vol] 6.3 10*3/uL 3.8-11.6 [facility] pH Auto test strip (U)Ordere d By: Pete Thakkar on 03-23-2023 pH (U) 5.0 [pH] 5.0-9.0 [facility] Discharge Instructionson Discharge Instructions [id number]#[id number]:127 [facility] Comment on above: Other Comment: wrong folder Prescriptions/Work Noteson 0 03-03-2023 Prescriptions/Work Notes [id number]#[id number]:127 [facility] Consent for Treatmenton 02-03 Consent for Treatment [id number]#1.00CD:127 [facility] Discharge Instructionson Discharge Instructions [id number]#[id number]:[address] [facility] ED Clinical Summaryon 2022 ED Clinical Summary (Inserted Image. Kristin ble to display) [address] [address] ED Clinical Summary Person Information Name: CONSTANTINO CARDOSO [place] Age: 52 Years : 1970 Sex: Female Language: Sinhala PCP: JUDI YOUSSEF CNP Marital Status: Phone: [phone] MRN: Visit Id: Visit Reason: Wrist pain-swelling; [...] 02/19/2023 01:41:18 02/19/2023 01:41:18 ADDRESS: [address] [facility] [id number] PHYS DOC NOTES: MEDICAL INFORMATION: Prescriptions Given: New Medications [id number], [address] [place], [place] [id number], [phone] naproxen (Naprosyn 500 mg Tab) 1 Tablets [...] With: Address: When: JUDI YOUSSEF [address] [place] [place] [phone] Business (1) In 3 days 02/22/2023 Comments: Take the pain medication as prescribed as needed for pain. Please follow-up with your primary care doctor in the next 2 to 3 days for further evaluation management. Please return to the ED for any new or worsening symptoms or DIAGNOSIS: Right wrist sprain Normal [facility] ED Note-Physicianon 02-20-20 ED Note-Physician Basic Information Time Seen: Zabrina Patton DO 02/19/2023 00:51 Chief Complaint states fell yesterday injuring right wrist. was seen at [place]. splint in place. states pain radiating up the arm. taking motrin and tylenol History of Present Illness Patient is a 52-year-old female with past medical history of hypertension gastroparesis presenting to the ED for evaluation of right arm pain. Patient had a fall yesterday was seen at [place] had x-rays and was told it was [...] and Complexity of Problems Differential Diagnosis: [] [facility] Data External documents reviewed: [] My [...] and elbow are obtained. Patient is given [place] in the ED for pain. X-rays do [...] pain, # 20 tab(s), Refills(s) 0, Pharmacy: [id number], 170, cm, 02/19/23 0:56:00 EDT, Height/Length Dosing, 90.2, kg, 02/19/23 0:56:00 EDT, Weight Dosing XR Elbow 3+ Views Right XR Wrist 3+ Views Right Medications Administered Given [place] 5/325 Tab, 1 tab(s), Oral Disposition Plan Discharge Prescription List Prescriptions Naprosyn 500 mg Tab, 500 mg= 1 tab(s), Oral, BID, PRN Follow-up With When Contact Information JUDI YOUSSEF In 3 days 02/22/2023 EDT [address] [place] [phone] Business (1) Additional Instructions: Take the pain [...] (03/02/2019), Cholecystectomy, Hernia repair, Hysterectomy. Medications Inpatient [place] 5/325 Tab, 1 tab(s), Oral, Once Home albuterol HFA 90 mcg/inh MDI, 2 pu (more content not included)... Normal [facility] Comment on above: Result Comment: Elec [...] safe for you. General instructions ? Take [id number] and prescription medicines only as told by [...] it gets (more content not included)... Normal [facility] ED Patient Summaryon 023 ED Patient Summary (Inserted Image. Kristin ble to display) [address] [address] Patient Discharge Instructions Person Information Name: CONSTANTINO CARDOSO Age: 52 Years Arrival Date: 02/19/2023 00:48:45 Discharge Diagnosis: Right wrist sprain Primary Care Physician: JUDI YOUSSEF CNP Provider Information Primary Provider: Zabrina Patton DO Advanced Personalization Specialist:None The exam and treatment you received in the Emergency Department were for an urgent problem and are not intended as complete care. It is important that you follow up with a doctor, nurse practitioner, or physician?s spa assistant manager for ongoing care. If your symptoms become [...] With: Address: When: JUDI YOUSSEF [address] [place] [place] [phone] Business (1) In 3 days 02/22/2023 Comments: [...] opioids can be used to help relieve zxflwpiq-ez-lfsseb pain and are often prescribed following a [...] the ris (more content not included)... Normal [facility] XR Elbow 3+ Views Righton XR [...] mGy = na DAP = na Normal [facility] XR Wrist 3+ Views Righton XR [...] mGy = na DAP = na Normal [facility] Activated partial thrombopla stin time (aPTT) in platelet poor plasma by coagulation aOrdered By: Conner Griffith on 02-15-2023 aPTT Coag (PPP) [Time] 37.0 s 25.1-36.5 [facility] Alanine aminotransferase [En zymatic activity/volume] in Serum or PlasmaOrdered By: Conner Griffith on 02-15-2023 ALT [Catalytic activity/Vol] 13 U/L 7-52 [facility] Albumin [Mass/volume] in Ser um or Plasma by Bromocresol green (BCG) dye binding methoOrdered By: Conner Griffith on 02-15-2023 Albumin BCG dye [Mass/Vol] 4.3 g/dL 3.5-5.7 [facility] Alkaline phosphatase [Enzyma tic activity/volume] in Serum or PlasmaOrdered By: Conner Griffith on 02-15-2023 ALP [Catalytic activity/Vol] 124 U/L 34-104 [facility] Aspartate aminotransferase [ Enzymatic activity/volume] in Serum or PlasmaOrdered By: Conner Griffith on 02-15-2023 AST [Catalytic activity/Vol] 15 U/L 13-39 [facility] Basic Metabolic Panelon 02-03 Anion gap [Moles/Vol] 12.6 mmol/L Normal 6.0-15.0 [facility] Comment on above: Performed By: #### H EPATIC, CBC, BMP, LIPASE #### [facility] [address] Calcium [Mass/Vol] 9.3 mg/dL Normal 8.6-10.3 [facility] Comment on above: Performed By: #### H EPATIC, CBC, BMP, LIPASE #### [facility] [address] [place] [address] [place] Chloride [Moles/Vol] 106 mmol/L Normal 98-107 [facility] Comment on above: Performed By: #### H EPATIC, CBC, BMP, LIPASE #### [facility] [address] CO2 [Moles/Vol] 25.3 mmol/L Normal 21.0-31.0 [facility] Comment on above: Performed By: #### H EPATIC, CBC, BMP, LIPASE #### [facility] [address] Creatinine [Mass/Vol] 0.77 mg/dL Normal 0.60-1.20 [facility] Comment on above: Performed By: #### H EPATIC, CBC, BMP, LIPASE #### [address] Creatinine Clr Calc Pharmacy 98.01 [facility] Comment on above: Performed By: #### H EPATIC, CBC, BMP, LIPASE #### [place] [address] [place] GFR/1.73 sq M.predicted MDRD (S/P/Bld) [Vol rate/Area] mL/min/{1.73_m2} [facility] Comment on above: Performed By: #### H EPATIC, CBC, BMP, LIPASE #### [address] Glucose [Mass/Vol] 94 mg/dL Normal 70-100 [facility] Comment on above: Result Comment: [place] Glucose Reference Range is dependent on time and content of last meal. Glucose of more than 200 mg/dL in a nonstressed, ambulatory subject supports the diagnosis of Diabetes Mellitus. ADA recommended reference range Performed By: #### H EPATIC, CBC, BMP, LIPASE #### [facility] [address] Potassium [Moles/Vol] 3.9 mmol/L Normal 3.5-5.1 [facility] Comment on above: Performed By: #### H EPATIC, CBC, BMP, LIPASE #### [place] [address] [place] Sodium [Moles/Vol] 140 mmol/L Normal 136-145 [facility] Comment on above: Performed By: #### H EPATIC, CBC, BMP, LIPASE #### [facility] [address] Urea nitrogen [Mass/Vol] 14 mg/dL Normal 7-25 [facility] Comment on above: Performed By: #### H EPATIC, CBC, BMP, LIPASE #### [facility] [address] [place] [address] Basophils Auto (Bld) [#/Vol] Ordered By: Conner Griffith on 02-15-2023 Basophils (Bld) [#/Vol] 0.0 10*3/uL 0.0-0.2 [facility] Basophils/100 WBC Auto (Bld) Ordered By: Conner Griffith on 02-15-2023 Basophils/100 WBC (Bld) 0.6 % . [facility] Bilirubin.direct [Mass/volum e] in Serum or PlasmaOrdered By: Conner Griffith on 02-15-2023 Bilirubin.direct [Mass/Vol] 0.00 mg/dL 0.03-0.18 [facility] Comment on above: If the DBIL is less than 0.1, IBIL is not able to becalculated. Bilirubin.total [Mass/volume ] in Serum or PlasmaOrdered By: Conner Griffith on 02-15-2023 Bilirubin [Mass/Vol] 0.4 mg/dL 0.3-1.0 [facility] CT abdomen pelvis w conon CT abdomen pelvis w con [facility] [place] [address] [place] [address] CT Scan Report Signed Patient: Constantino Cardoso MR#: [id number] : 1970 Acct:[id number] Age/Sex: 52 / F ADM Date: 02/15/23 Loc: ER Room: Type: [facility] ER Attending Dr: Copies to: Conner Griffith [...] Columba Domínguez M.D.02/15/2023 9:56 AM Dictation Location: [place] [address] Transcribed By: [facility] 02/15/23 0956 Dictated By: Columba Domínguez MD 02/15/23 0943 Signed By: 02/15/23 0956 [facility] Calcium [Mass/volume] in Ser um or PlasmaOrdered By: Conner Griffith on 02-15-2023 Calcium [Mass/Vol] 9.3 mg/dL 8.6-10.3 [facility] Carbon dioxide, total [Moles /volume] in Serum or PlasmaOrdered By: Conner Griffith on 02-15-2023 CO2 [Moles/Vol] 25.3 mmol/L 21.0-31.0 [facility] Chloride [Moles/volume] in S cristine or PlasmaOrdered By: Conner Griffith on 02-15-2023 Chloride [Moles/Vol] 106 mmol/L 98-107 [facility] Complete Blood Count Auto Di ffon 02-15-2023 Basophils (Bld) [#/Vol] 0.0 10*3/uL Normal 0.0-0.2 [facility] Comment on above: Result Comment: PERF ORMED BY: [place] [address] PATHOLOGIST DETECTIVE AND INTELLIGENCE ANALYST ROOSEVELT KEYES M.D. Performed By: #### P ORS #### [address] Basophils/100 WBC (Bld) 0.6 % Normal . [facility] Comment on above: Performed By: #### P ORS #### [address] Eosinophils (Bld) [#/Vol] 0.2 10*3/uL Normal 0.0-0.45 [facility] Comment on above: Performed By: #### P ORS #### [address] Eosinophils/100 WBC (Bld) 4.0 % Normal . [facility] Comment on above: Performed By: #### P ORS #### [address] Erythrocyte distribution width (RBC) [Ratio] 13.5 % Normal 11.9-15.3 [facility] Comment on above: Performed By: #### P ORS #### [address] Hematocrit (Bld) [Volume fraction] 38.4 % Normal 34.0-46.4 [facility] Comment on above: Performed By: #### P ORS #### [address] Hemoglobin (Bld) [Mass/Vol] 13.0 g/dL Normal 11.8-15.4 [facility] Comment on above: Performed By: #### P ORS #### [facility] [address] Lymphocytes (Bld) [#/Vol] 1.8 10*3/uL Normal 1.00-4.8 [facility] Comment on above: Performed By: #### P ORS #### [address] Lymphocytes/100 WBC (Bld) 33.8 % Normal . [facility] Comment on above: Performed By: #### P ORS #### [address] MCH (RBC) [Entitic mass] 29.4 pg Normal 24.7-34.3 [facility] Comment on above: Performed By: #### P ORS #### [address] MCV (RBC) [Entitic vol] 86.8 fL Normal 80-100 [facility] Comment on above: Performed By: #### P ORS #### [address] Mean Corpuscular HGB Conc 33.8 g/dL Normal 32.0-35.0 [facility] Comment on above: Performed By: #### P ORS #### [address] Monocytes (Bld) [#/Vol] 0.3 10*3/uL Normal 0.0-0.8 [facility] Comment on above: Performed By: #### P ORS #### [address] Monocytes/100 WBC (Bld) 18.21 % Normal 0.00-20.00 [facility] Comment on above: Performed By: #### P ORS #### [address] Monocytes/100 WBC (Bld) 4.8 % Normal . [facility] Comment on above: Performed By: #### P ORS #### [address] Neutrophils (Bld) [#/Vol] 3.0 10*3/uL Normal 1.8-7.7 [facility] Comment on above: Performed By: #### P ORS #### [address] Neutrophils/100 WBC (Bld) 56.8 % Normal . [facility] Comment on above: Performed By: #### P ORS #### [address] NRBC% 0.2 /100{WBC} Normal 0-0.5 [facility] Comment on above: Performed By: #### P ORS #### [address] Platelet mean volume (Bld) [Entitic vol] 7.3 fL Normal 6.3-10.7 [facility] Comment on above: Performed By: #### P ORS #### [address] Platelets (Bld) [#/Vol] 385 10*3/uL Normal 150-450 [facility] Comment on above: Performed By: #### P ORS #### [address] RBC (Bld) [#/Vol] 4.43 10*6/uL Normal 3.60-5.00 [facility] Comment on above: Performed By: #### P ORS #### [address] WBC (Bld) [#/Vol] 5.2 10*3/uL Normal 3.8-11.6 [facility] Comment on above: Performed By: #### P ORS #### [address] Creatinine [Mass/volume] in Serum or PlasmaOrdered By: Conner Griffith on 02-15-2023 Creatinine [Mass/Vol] 0.77 mg/dL 0.60-1.20 [facility] Eosinophils Auto (Bld) [#/Vo l]Ordered By: Conner Griffith on 02-15-2023 Eosinophils (Bld) [#/Vol] 0.2 10*3/uL 0.0-0.45 [facility] Eosinophils/100 WBC Auto (Bl d)Ordered By: Conner Griffith on 02-15-2023 Eosinophils/100 WBC (Bld) 4.0 % . [facility] Erythrocyte distribution wid th Auto (RBC) [Ratio]Ordered By: Conner Griffith on 02-15-2023 Erythrocyte distribution width (RBC) [Ratio] 13.5 % 11.9-15.3 [facility] Globulin Calc (S) [Mass/Vol] Ordered By: Conner Griffith on 02-15-2023 Globulin (S) [Mass/Vol] 3.0 g/dL [facility] Glucose [Mass/volume] in Ser um or PlasmaOrdered By: Conner Griffith on 02-15-2023 Glucose [Mass/Vol] 94 mg/dL 70-100 [facility] Comment on above: ADA recommended refe rence rangeRandom Glucose Reference Range is dependent on time and content of last meal. Glucose of more than 200 mg/dL in a nonstressed, ambulatory subject supports the diagnosis of Diabetes Mellitus. Hematocrit Auto (Bld) [Volum e fraction]Ordered By: Conner Griffith on 02-15-2023 Hematocrit (Bld) [Volume fraction] 38.4 % 34.0-46.4 [facility] Hemoglobin [Mass/volume] in BloodOrdered By: Conner Griffith on 02-15-2023 Hemoglobin (Bld) [Mass/Vol] 13.0 g/dL 11.8-15.4 [facility] Hepatic Panelon 02-15-2023 Albumin [Mass/Vol] 4.3 g/dL Normal 3.5-5.7 [facility] Comment on above: Performed By: #### P ORS #### [facility] [address] [place] [address] [facility] Albumin/Globulin [Mass ratio] 1.4 {ratio} Normal [facility] Comment on above: Performed By: #### P ORS #### [facility] [address] [place] [address] ALP [Catalytic activity/Vol] 124 U/L High 34-104 [facility] Comment on above: Performed By: #### P ORS #### [address] ALT [Catalytic activity/Vol] 13 U/L Normal 7-52 [facility] Comment on above: Performed By: #### P ORS #### [address] AST [Catalytic activity/Vol] 15 U/L Normal 13-39 [facility] Comment on above: Performed By: #### P ORS #### [address] Bilirubin [Mass/Vol] 0.4 mg/dL Normal 0.3-1.0 [facility] Comment on above: Performed By: #### P ORS #### [address] Bilirubin,Indirect 0.4 mg/dL Normal [facility] Comment on above: Performed By: #### P ORS #### [address] Bilirubin.indirect [Mass/Vol] 0.00 mg/dL Low 0.03-0.18 [facility] Comment on above: Result Comment: If t he DBIL is less than 0.1, IBIL is not able to be calculated. Performed By: #### P ORS #### [address] Globulin (S) [Mass/Vol] 3.0 g/dL Normal [facility] Comment on above: Performed By: #### P ORS #### [address] Protein [Mass/Vol] 7.3 g/dL Normal 6.4-8.9 [facility] Comment on above: Performed By: #### P ORS #### [address] Laboratory - CoagulationOrde red By: Conner Griffith on 02-15-2023 PT Coag (PPP) [Time] 11.7 s 9.0-12.9 [facility] Leukocytes [#/volume] correc jun for nucleated erythrocytes in Blood by Automated counOrdered By: Conner Griffith on 02-15-2023 WBC corrected for nucl RBC Auto (Bld) [#/Vol] 5.2 10*3/uL 3.8-11.6 [facility] Lipaseon 02-15-2023 Lipase [Catalytic activity/Vol] 19.0 U/L Normal 11.0-82.0 [facility] Comment on above: Result Comment: PERF ORMED BY: [place] [address] PATHOLOGIST DETECTIVE AND INTELLIGENCE ANALYST ROOSEVELT KEYES M.D. Performed By: #### H EPATIC, CBC, BMP, LIPASE #### [address] Lipase [Enzymatic activity/v olume] in Serum or PlasmaOrdered By: Conner Griffith on 02-15-2023 Lipase [Catalytic activity/Vol] 19.0 U/L 11.0-82.0 [facility] Lymphocytes Auto (Bld) [#/Vo l]Ordered By: Conner Griffith on 02-15-2023 Lymphocytes (Bld) [#/Vol] 1.8 10*3/uL 1.00-4.8 [facility] Lymphocytes/100 WBC Auto (Bl d)Ordered By: Conner Griffith on 02-15-2023 Lymphocytes/100 WBC (Bld) 33.8 % . [facility] MCH Auto (RBC) [Entitic mass ]Ordered By: Conner Griffith on 02-15-2023 MCH (RBC) [Entitic mass] 29.4 pg 24.7-34.3 [facility] MCHC Auto (RBC) [Mass/Vol]Or dered By: Conner Griffith on 02-15-2023 MCHC (RBC) [Mass/Vol] 33.8 g/dL 32.0-35.0 [facility] MCV Auto (RBC) [Entitic vol] Ordered By: Conner Griffith on 02-15-2023 MCV (RBC) [Entitic vol] 86.8 fL 80-100 [facility] Monocyte distribution width [Entitic volume] in Blood by AutomatedOrdered By: Conner Griffith on 02-15-2023 Monocyte distribution width Auto (Bld) [Entitic vol] 18.21 % 0.00-20.00 [facility] Monocytes Auto (Bld) [#/Vol] Ordered By: Conner Griffith on 02-15-2023 Monocytes (Bld) [#/Vol] 0.3 10*3/uL 0.0-0.8 [facility] Monocytes/100 WBC Auto (Bld) Ordered By: Conner Griffith on 02-15-2023 Monocytes/100 WBC (Bld) 4.8 % . [facility] Neutrophils Auto (Bld) [#/Vo l]Ordered By: Conner Griffith on 02-15-2023 Neutrophils (Bld) [#/Vol] 3.0 10*3/uL 1.8-7.7 [facility] Neutrophils/100 WBC Auto (Bl d)Ordered By: Conner Griffith on 02-15-2023 Neutrophils/100 WBC (Bld) 56.8 % . [facility] No Panel InformationOrdered By: Conner Griffith on 02-15-2023 Estimated GFR (CKD-EPI) > 60.0 mL/Min [facility] Creatinine Clearance (Chem 98.01 [facility] Nucleated erythrocytes [Pres ence] in Blood by Automated countOrdered By: Conner Griffith on 02-15-2023 Nucleated RBC Auto Ql (Bld) 0.2 /100{WBC} 0-0.5 [facility] Partial Thromboplastin Timeo n 02-15-2023 aPTT Coag (Bld) [Time] 37.0 s High 25.1-36.5 [facility] Comment on above: Result Comment: PERF ORMED BY: [place] [address] PATHOLOGIST DETECTIVE AND INTELLIGENCE ANALYST ROOSEVELT KEYES M.D. Performed By: #### P ORS #### [address] Platelet mean volume Auto (B ld) [Entitic vol]Ordered By: Conner Griffith on 02-15-2023 Platelet mean volume (Bld) [Entitic vol] 7.3 fL 6.3-10.7 [facility] Platelet poor plasma interna tional normalized ratio (INR) by coagulation assay (relatOrdered By: Conner Griffith on 02-15-2023 INR Coag (PPP) [Relative time] 1.0 {INR} [facility] Comment on above: INR Therapeutic Rang e [...] 02-15-2023 Platelets (Bld) [#/Vol] 385 10*3/uL 150-450 [facility] Potassium [Moles/volume] in Serum or PlasmaOrdered By: Conner Griffith on 02-15-2023 Potassium [Moles/Vol] 3.9 mmol/L 3.5-5.1 [facility] Protein [Mass/volume] in Ser um or PlasmaOrdered By: Conner Griffith on 02-15-2023 Protein [Mass/Vol] 7.3 g/dL 6.4-8.9 [facility] Prothrombin Time INRon 02-15 INR Coag (PPP) [Relative time] 1.0 {INR} Normal [facility] Comment on above: Result Comment: INR Therapeutic [...] 4.5 Performed By: #### P ORS #### [address] PT Coag (PPP) [Time] 11.7 s Normal 9.0-12.9 [facility] Comment on above: Performed By: #### P ORS #### [facility] [address] RBC Auto (Bld) [#/Vol]Ordere d By: Conner Griffith on 02-15-2023 RBC (Bld) [#/Vol] 4.43 10*6/uL 3.60-5.00 [facility] Serum or plasma albumin/glob ulin mass ratioOrdered By: Conner Griffith on 02-15-2023 Albumin/Globulin [Mass ratio] 1.4 {ratio} [facility] Serum or plasma anion gap de terminationOrdered By: Conner Griffith on 02-15-2023 Anion gap [Moles/Vol] 12.6 mmol/L 6.0-15.0 [facility] Serum or plasma non-glucuron idated bilirubin measurement (mass/volume)Ordered By: Conner Griffith on 02-15-2023 Bilirubin.indirect [Mass/Vol] 0.4 mg/dL [facility] Sodium [Moles/volume] in Ser um or PlasmaOrdered By: Conner Griffith on 02-15-2023 Sodium [Moles/Vol] 140 mmol/L 136-145 [facility] Urea nitrogen [Mass/volume] in Serum or PlasmaOrdered By: Conner Griffith on 02-15-2023 Urea nitrogen [Mass/Vol] 14 mg/dL 7-25 [facility] WBC Auto (Bld) [#/Vol]Ordere d By: Conner Griffith on 02-15-2023 WBC (Bld) [#/Vol] 5.2 10*3/uL 3.8-11.6 [facility] MG MAMM SCREEN 3D MACARIO CADon 11-30-2022 MG MAMM SCREEN 3D MACARIO CAD Normal [facility] ER URINE PROFILEon 3 Bilirubin Ql (U) Negative Normal NEGATIVE [facility] Comment on above: Performed By: #### E RUR ####[facility] [address] [place] [address]Dr. Tadeo Smyth Clarity (U) CLEAR Normal CLEAR [facility] Comment on above: Performed By: #### E RUR ####[facility] [address] [place], [place] [address]Dr. Tadeo Smyth Color (U) YELLOW Normal YELLOW [facility] Comment on above: Performed By: #### E RUR ####[facility] [address] [place], [place] [address]Dr. Tadeo Smyth ERUAHD A micrscopic examina tion will be performed if indicated. Normal [facility] Comment on above: Performed By: #### E RUR ####[facility] [address] [place], [place] [address]Dr. Tadeo Smyth Glucose Ql (U) Negative Normal NEGATIVE [facility] Comment on above: Performed By: #### E RUR ####[facility] [address] [place], [place] [address]Dr. Tadeo Smyth Hemoglobin Ql (U) TRACE-INTACT Abnormal NEGATIVE [facility] Comment on above: Performed By: #### E RUR ####[facility] [address] [place], [place] [address]Dr. Tadeo Smyth Ketones Ql (U) Negative Normal NEGATIVE [facility] Comment on above: Performed By: #### E RUR ####[facility] [address] [place], [place] [address]Dr. Tadeo Smyth LEUKOCYTES Negative Normal NEGATIVE [facility] Comment on above: Performed By: #### E RUR ####[facility] [address] [place], [place] [address]Dr. Tadeo Smyth Nitrite Ql (U) Negative Normal NEGATIVE [facility] Comment on above: Performed By: #### E RUR ####[facility] Rxghglyphn[address] [place], [place] [address]Dr. Tadeo Smyth pH (U) 6.0 [pH] Normal 5-9 [facility] Comment on above: Performed By: #### E RUR ####[facility] [address] [place], [place] [address]Dr. Tadeo Smyth SPEC GRAVITY >=1.030 Abnormal 1.005-<=1.0 25 [facility] Comment on above: Performed By: #### E RUR ####[facility] [address] [place] [address]Dr. Tadeo Smyth UA PROTEIN Negative Normal NEGATIVE/ TRACE [facility] Comment on above: Performed By: #### E RUR ####[facility] [address] [place] [address]Dr. Tadeo Smyth UR MICRO IND NOT INDICATED Normal [facility] Comment on above: Performed By: #### E RUR ####[facility] [address] [place], [place] [address]Dr. Tadeo Smyth Urobilinogen Qn (U) 0.2 {Benito'U}/dL Normal 0.2 - 1. 0 [facility] Comment on above: Performed By: #### E RUR ####[facility] [address] [place], [place] [address]Dr. Tadeo Smyth XR ABD FLAT UP_PA Kasey 11-28 XR ABD FLAT UP_PA CH Normal [facility] AMYLASEon 11-27-2022 Amylase [Catalytic activity/Vol] 63 U/L Normal 25-115 [facility] Comment on above: Performed By: #### L IPA, VIJI, CMP ####[facility] [address] [place], [place] [address]Dr. Tadeo Smyth CBC AUTO DIFFon 11-27-2022 BASO # 0.0 103/ul Normal 0.0-0.1 [facility] Comment on above: Performed By: #### C BC ####[facility] [address] [place], [place] [address]Dr. Tadeo Smyth Basophils/100 WBC (Bld) 0.4 % Normal 0.2-2.0 [facility] Comment on above: Performed By: #### C BC ####[facility] Ifynvw[address] [place], [place] [address]Dr. Tadeo Smyth EO # 0.2 103/ul Normal 0.0-0.7 [facility] Comment on above: Performed By: #### C BC ####[facility] [address] [place], [place] [address]Dr. Tadeo Smyth Eosinophils/100 WBC (Bld) 2.8 % Normal 0.9-7.0 [facility] Comment on above: Performed By: #### C BC ####[facility] [address] [place] [address]Dr. Tadeo Smyth Erythrocyte distribution width (RBC) [Ratio] 13.2 % Normal 11.0-15.0 [facility] Comment on above: Performed By: #### C BC ####[facility] Dr[address] [place], [place] [address]Dr. Tadeo Smyth Hematocrit (Bld) [Volume fraction] 42.6 % Normal 36.0-48.0 [facility] Comment on above: Performed By: #### C BC ####[facility] [address] [place], [place] [address]Dr. Tadeo Smyth Hemoglobin (Bld) [Mass/Vol] 13.6 g/dL Normal 12.0-16.0 [facility] Comment on above: Performed By: #### C BC ####[facility] [address] [place], [place] [address]Dr. Tadeo Smyth IG # 0.02 10e3/ul Normal 0.00-0.03 [facility] Comment on above: Performed By: #### C BC ####[facility] [address] [place], [place] [address]Dr. Tadeo Smyth IG % 0.3 % Normal 0.0-0.5 [facility] Comment on above: Performed By: #### C BC ####[facility] Th[address] [place], [place] [address]Dr. Tadeo Smyth LYMPH # 2.2 103/ul Normal 1.2-3.8 [facility] Comment on above: Performed By: #### C BC ####[facility] X[address] [place], [place] [address]Dr. Tadeo Smyth Lymphocytes/100 WBC (Bld) 32.1 % Normal 20.5-60.0 [facility] Comment on above: Performed By: #### C BC ####[facility] [address] [place] [address]Dr. Margotnicole Smyth MANUAL DIFF REQ NO Normal [facility] Comment on above: Performed By: #### C BC ####[facility] [address] [place] [address]Dr. Tadeo Haja MCH (RBC) [Entitic mass] 29.6 pg Normal 26.7-34.0 [facility] Comment on above: Performed By: #### C BC ####[facility] [address] [place], [place] [address]Dr. Tadeo Haja MCHC (RBC) [Mass/Vol] 31.9 g/dL Normal 29.9-35.2 [facility] Comment on above: Performed By: #### C BC ####[facility] [address] [place], [place] [address]Dr. Tadeo Smyth MCV (RBC) [Entitic vol] 92.6 fL Normal 81.0-99.0 [facility] Comment on above: Performed By: #### C BC ####[facility] [address] [place], [place] [address]Dr. Tadeo Smyth MONO # 0.2 103/ul Critically low 0.3-0.8 [facility] Comment on above: Performed By: #### C BC ####[facility] [address] [place], [place] [address]Dr. Tadeo Smyth Monocytes/100 WBC (Bld) 3.2 % Normal 1.7-12.0 [facility] Comment on above: Performed By: #### C BC ####[facility] [address] [place], [place] [address]Dr. Tadeo Smyth NEUT # 4.2 103/ul Normal 1.4-6.5 [facility] Comment on above: Performed By: #### C BC ####[facility] [address] [place], [place] [address]Dr. Tadeo Smyth Neutrophils/100 WBC (Bld) 61.2 % Normal 43.0-75.0 [facility] Comment on above: Performed By: #### C BC ####[facility] Vxvmktlkmi[address] [place], [place] [address]Dr. Tadeo Smyth Platelet mean volume (Bld) [Entitic vol] 9.0 fL Critically low 9.5-13.5 [facility] Comment on above: Performed By: #### C BC ####[facility] [address] [place] [address]Dr. Tadeo Smyth PLT 392 103/ul Normal 150-450 [facility] Comment on above: Performed By: #### C BC ####[facility] Dllnaodixz[address] [place] [address]Dr. Tadeo Smyth RBC 4.60 106/ul Normal 4.20-5.40 [facility] Comment on above: Performed By: #### C BC ####[facility] Zcdgeppmwy1793 [place] [address]Dr. Tadeo Smyth WBC 6.9 103/ul Normal 4.0-11.0 [facility] Comment on above: Performed By: #### C BC ####[facility] Ckxuewpckr[address] [place] [address]Dr. Tadeo Haja LIPASEon 11-27-2022 Lipase [Catalytic activity/Vol] 100.0 U/L Normal 73.0-393.0 [facility] Comment on above: Performed By: #### L VIJI HALL, CMP ####[facility] Kstpmipheo[address] [place] [address]Dr. Tadeo Smyth PROF 14(COMP METB)on 023 Albumin [Mass/Vol] 3.5 g/dL Normal 3.4-5.0 [facility] Comment on above: Performed By: #### L VIJI HALL, CMP ####[facility] Njghxrfoxf[address] [place] [address]Dr. Margotnicole Smyth Albumin/Globulin [Mass ratio] 0.9 {ratio} Normal [facility] Comment on above: Performed By: #### L VIJI HALL, CMP ####[facility] Jxbfvgjdvj0934 [place] [address]Dr. Tadeo Smyth ALP [Catalytic activity/Vol] 166 U/L Critically high 46-116 [facility] Comment on above: Performed By: #### L ISABEL VIJI, CMP ####[facility] Ejsftmcczz[address] [place] [address]Dr. Tadeo Smyth ALT [Catalytic activity/Vol] 25 U/L Normal 14-59 [facility] Comment on above: Performed By: #### L IPA, VIJI, CMP ####[facility] Iasdodluvj[address] [place] [address]Dr. Tadeo Smyth Anion gap [Moles/Vol] 12.4 mmol/L Normal [facility] Comment on above: Performed By: #### L IPA, VIJI, CMP ####[facility] Fthqjdczpd7[address] [place] [address]Dr. Tadeo Smyth AST [Catalytic activity/Vol] 18 U/L Normal 15-37 [facility] Comment on above: Performed By: #### L IPA VIJI, CMP ####[facility] Ulpqnyfyhy[address] [place], [place] [address]Dr. Tadeo Smyth Bilirubin [Mass/Vol] 0.3 mg/dL Normal 0.2-1.0 [facility] Comment on above: Performed By: #### L IPA VIJI, CMP ####[facility] Fqhtwopgen[address] [place], [place] [address]Dr. Tadeo Smyth Calcium [Mass/Vol] 9.1 mg/dL Normal 8.5-10.1 [facility] Comment on above: Performed By: #### L IPA VIJI, CMP ####[facility] Tqhfkctvgx[address] [place], [place] [address]Dr. Tadeo Smyth Chloride [Moles/Vol] 104 mmol/L Normal 98-107 [facility] Comment on above: Performed By: #### L IPA VIJI, CMP ####[facility] Cmugoablrf[address] [place], [place] [address]Dr. Tadeo Smyth CO2 [Moles/Vol] 25.0 mmol/L Normal 21.0-32.0 [facility] Comment on above: Performed By: #### L IPA, VIJI, CMP ####[facility] Fkgpilxiyo[address] [place], [place] [address]Dr. Tadeo Smyth Creatinine [Mass/Vol] 0.87 mg/dL Normal 0.55-1.02 [facility] Comment on above: Performed By: #### L VIJI HALL, CMP ####[facility] Srxsvsyear[address] [place] [address]Dr. Tadeo Smyth EGFR-AF [place]ER >60 Normal >=60 [facility] Comment on above: Performed By: #### L ISABEL VIJI, CMP ####[facility] Mighvwpcci35[address] [place] [address]Dr. Tadeo Smyth EGFR-NON AF [place] >60 Normal >=60 [facility] Comment on above: Performed By: #### L VIJI HALL, CMP ####[facility] Kcpedqlssz4435 [place] [address]Dr. Tadeo Smyth Globulin (S) [Mass/Vol] 3.9 g/dL Normal [facility] Comment on above: Performed By: #### L VIJI HALL, CMP ####[facility] Wibfnfcedr[address] [place], [place] [address]Dr. Tadeo Smyth Glucose [Mass/Vol] 169 mg/dL Critically high 74-106 [facility] Comment on above: Performed By: #### L VIJI HALL, CMP ####[facility] Vpcnozmqss[address] [place], [place] [address]Dr. Tadeo Smyth Potassium [Moles/Vol] 3.4 mmol/L Critically low 3.5-5.1 [facility] Comment on above: Performed By: #### L VIJI HALL, CMP ####[facility] Mkxlohoedo[address] [place], [place] [address]Dr. Tadeo Smyth Protein [Mass/Vol] 7.4 g/dL Normal 6.4-8.2 [facility] Comment on above: Performed By: #### L VIJI HALL, CMP ####[facility] Krmjlllfwh[address] [place], [place] [address]Dr. Tadeo Smyth Sodium [Moles/Vol] 138 mmol/L Normal 136-145 [facility] Comment on above: Performed By: #### L VIJI HALL, CMP ####[facility] Jrsdhpjjyl366[address] [place], [place] [address]Dr. Tadeo Smyth Urea nitrogen [Mass/Vol] 23.0 mg/dL Critically high 7.0-18.0 [facility] Comment on above: Performed By: #### L VIJI HALL CMP ####[facility] B[address]zyjcsd1783 [place], [place] [address]Ug. Tadeo Smyth Urea nitrogen/Creatinine [Mass ratio] 26.4 mg/mg Normal [facility] Comment on above: Performed By: #### L VIJI HALL CMP ####[facility] Aztmufljbw5717 [place], [place] [address]Bi. Tadeo Smyth CT enterographyon 11-04-2022 CT enterography [facility] Main [place] [address] [place] [address] CT Scan Report Signed Patient: Constantino Cardoso MR#: [id number] : [id number] Acct:[id number] Age/Sex: 52 / F ADM Date: 11/04/22 Loc: CT Room: Type: [facility] Attending Dr: Jennie Ayon MD Copies to: [...] Bateman Jr., DNeoONeo11/04/2022 11:17 AM Dictation Location: [place] [address] Transcribed By: [facility] 11/04/22 111 Dictated By: Tiburcio Bateman Jr, DO 11/04/22 111 Signed By: 11/04/22 1117 Normal [facility] AMYLASEon 11-02-2022 Amylase [Catalytic activity/Vol] 40 U/L Normal 25-115 [facility] Comment on above: Performed By: #### L IPA, MG, CMP, VIJI ####[facility] Syikujbdvt4[address] [place] [address]Dr. Tadeo Smyth CBC AUTO DIFFon 11-02-2022 BASO # 0.0 103/ul Normal 0.0-0.1 [facility] Comment on above: Performed By: #### C BC ####[facility] Vyinvcchbe6353 [place] [address]Dr. Tadeo Smyth Basophils/100 WBC (Bld) 0.5 % Normal 0.2-2.0 [facility] Comment on above: Performed By: #### C BC ####[facility] Xhelnktuqf7529 [place] [address]Dr. Tadeo Smyth EO # 0.1 103/ul Normal 0.0-0.7 [facility] Comment on above: Performed By: #### C BC ####[facility] Vxqmgyypda4822 [place] [address]Dr. Tadeo Smyth Eosinophils/100 WBC (Bld) 2.8 % Normal 0.9-7.0 [facility] Comment on above: Performed By: #### C BC ####[facility] Rwuplnyoou8687 [place] [address]Dr. Tadeo Smyth Erythrocyte distribution width (RBC) [Ratio] 13.3 % Normal 11.0-15.0 [facility] Comment on above: Performed By: #### C BC ####[facility] Ptmppxsvpg6411 [place] [address]Dr. Tadeo Smyth Hematocrit (Bld) [Volume fraction] 35.6 % Critically low 36.0-48.0 [facility] Comment on above: Performed By: #### C BC ####[facility] Jjerobonuc[address] [place], [place] [address]DrNeo Smyth Hemoglobin (Bld) [Mass/Vol] 11.3 g/dL Critically low 12.0-16.0 [facility] Comment on above: Performed By: #### C BC ####[facility] Dbahohletf446[address] [place], [place] [address]Dr. Tadeo Smyth IG # 0.01 10e3/ul Normal 0.00-0.03 [facility] Comment on above: Performed By: #### C BC ####[facility] Kaxybudmvp5[address] [place], [place] [address]Dr. Tadeo Smyth IG % 0.2 % Normal 0.0-0.5 [facility] Comment on above: Performed By: #### C BC ####[facility] Cpkvzbcfji[address] [place], [place] [address]DrNeo Smyth LYMPH # 1.5 103/ul Normal 1.2-3.8 [facility] Comment on above: Performed By: #### C BC ####[facility] Wtttuxvxne[address] [place], [place] [address]DrNeo Smyth Lymphocytes/100 WBC (Bld) 34.9 % Normal 20.5-60.0 [facility] Comment on above: Performed By: #### C BC ####[facility] Vuuuukyzut[address] [place], [place] [address]DrNeo Smyth MANUAL DIFF REQ NO Normal [facility] Comment on above: Performed By: #### C BC ####[facility] Debnmflhfr8[address] [place], [place] [address]DrNeo Smyth MCH (RBC) [Entitic mass] 28.8 pg Normal 26.7-34.0 [facility] Comment on above: Performed By: #### C BC ####[facility] Rjuktzzbdw0831 [place] [address]Dr. Tadeo Smyth MCHC (RBC) [Mass/Vol] 31.7 g/dL Normal 29.9-35.2 [facility] Comment on above: Performed By: #### C BC ####[facility] Fzolegigmu0211 [place] [address]DrNeo Smyth MCV (RBC) [Entitic vol] 90.8 fL Normal 81.0-99.0 [facility] Comment on above: Performed By: #### C BC ####[facility] Zdwjzokqgc[address] [place], [place] [address]DrNeo Smyth MONO # 0.3 103/ul Normal 0.3-0.8 [facility] Comment on above: Performed By: #### C BC ####[facility] Kqyhzbmqgt[address] [place], [place] [address]DrNeo Smyth Monocytes/100 WBC (Bld) 6.9 % Normal 1.7-12.0 [facility] Comment on above: Performed By: #### C BC ####[facility] Nzzzayzzwk66[address] [place], [place] [address]DrNeo Smyth NEUT # 2.4 103/ul Normal 1.4-6.5 [facility] Comment on above: Performed By: #### C BC ####[facility] Eaybdypvrx[address] [place], [place] [address]DrNeo Smyth Neutrophils/100 WBC (Bld) 54.7 % Normal 43.0-75.0 [facility] Comment on above: Performed By: #### C BC ####[facility] Swspkhbtmh90[address] [place], [place] [address]DrNeo Smyth Platelet mean volume (Bld) [Entitic vol] 8.9 fL Critically low 9.5-13.5 [facility] Comment on above: Performed By: #### C BC ####[facility] Qveiusdlkj[address] [place], [place] [address]DrNeo Smyth PLT 316 103/ul Normal 150-450 [facility] Comment on above: Performed By: #### C BC ####[facility] Ubtqulirvu9085 [place] [address]Dr. Tadeo Smyth RBC 3.92 106/ul Critically low 4.20-5.40 [facility] Comment on above: Performed By: #### C BC ####[facility] Aohpwmehij7471 [place] [address]Dr. Tadeo Smyth WBC 4.4 103/ul Normal 4.0-11.0 [facility] Comment on above: Performed By: #### C BC ####[facility] Cigcyuanoy7042 [place] [address]Dr. Tadeo Smyth H PYLORI ANTIBODY IGGon 10-07 H. PYLORI IGG ABS 0.12 Index Value Normal 0.00-0.79 [facility] Comment on above: Result Comment: Nega tive <0.80 Equivocal 0.80 - 0.89 Positive >0.89 Performed By: #### H PYLLC ####[facility] Mvmeliwvfm[address] [place], [place] [address]Dr. Tadeo Smyth LIPASEon 11-02-2022 Lipase [Catalytic activity/Vol] 58.0 U/L Critically low 73.0-393.0 [facility] Comment on above: Performed By: #### L IPA, MG, CMP, VIJI ####[facility] Kvlqczmikr[address] [place], [place] [address]Dr. Tadeo Smyth MAGNESIUMon 11-02-2022 Magnesium [Mass/Vol] 1.8 mg/dL Normal 1.8-2.4 [facility] Comment on above: Performed By: #### L IPA, MG, CMP, VIJI ####[facility] Shknemywou240[address] [place], [place] [address]DrNeo Tadeo Smyth PROF 14(COMP METB)on 023 Albumin [Mass/Vol] 3.2 g/dL Critically low 3.4-5.0 [facility] Comment on above: Performed By: #### L IPA, MG, CMP, VIJI ####[facility] Tnfylgbbgi3071 [place] [address]Dr. Tadeo Smyth Albumin/Globulin [Mass ratio] 1.0 {ratio} Normal [facility] Comment on above: Performed By: #### L IPA, MG, CMP, VIJI ####[facility] Afoklvgeuq5655 [place] [address]Dr. Tadeo Smyth ALP [Catalytic activity/Vol] 138 U/L Critically high 46-116 [facility] Comment on above: Performed By: #### L IPA, MG, CMP, VIJI ####[facility] Pidhrgtcwe[address] [place], [place] [address]Dr. Tadeo Smyth ALT [Catalytic activity/Vol] 22 U/L Normal 14-59 [facility] Comment on above: Performed By: #### L IPA, MG, CMP, VIJI ####[facility] Rhllzlcrvb[address] [place], [place] [address]Dr. Tadeo Smyth Anion gap [Moles/Vol] 10.0 mmol/L Normal [facility] Comment on above: Performed By: #### L IPA, MG, CMP, VIJI ####[facility] Awtspbvglp[address] [place], [place] [address]Dr. Tadeo Smyth AST [Catalytic activity/Vol] 18 U/L Normal 15-37 [facility] Comment on above: Performed By: #### L IPA, MG, CMP, VIJI ####[facility] Dwfaxlqqmd[address] [place], [place] [address]Dr. Tadeo Smyth Bilirubin [Mass/Vol] 0.5 mg/dL Normal 0.2-1.0 [facility] Comment on above: Performed By: #### L IPA, MG, CMP, VIJI ####[facility] Eignzqvozu[address] [place], [place] [address]Dr. Tadeo Smyth Calcium [Mass/Vol] 8.9 mg/dL Normal 8.5-10.1 [facility] Comment on above: Performed By: #### L IPA, MG, CMP, VIJI ####[facility] Qdgirrlsjj120[address] [place], [place] [address]Dr. Tadeo Smyth Chloride [Moles/Vol] 107 mmol/L Normal 98-107 [facility] Comment on above: Performed By: #### L IPA, MG, CMP, VIJI ####[facility] Ehfxdpzqkh[address] [place] [address]Dr. Tadeo Smyth CO2 [Moles/Vol] 28.8 mmol/L Normal 21.0-32.0 [facility] Comment on above: Performed By: #### L IPA, MG, CMP, VIJI ####[facility] Wvchlddzug3084 [place] [address]Dr. Tadeo Smyth Creatinine [Mass/Vol] 0.74 mg/dL Normal 0.55-1.02 [facility] Comment on above: Performed By: #### L IPA, MG, CMP, VIJI ####[facility] Ybgbqrfozd[address] [place], [place] [address]Dr. Tadeo Smyth EGFR-AF [place] >60 Normal >=60 [facility] Comment on above: Performed By: #### L IPA, MG, CMP, VIJI ####[facility] Zrvhirrimo[address] [place], [place] [address]Dr. Tadeo Haja EGFR-NON AF [place] >60 Normal >=60 [facility] Comment on above: Performed By: #### L IPA, MG, CMP, VIJI ####[facility] Eafrucajmq[address] [place], [place] [address]Dr. Tadeo Smyth Globulin (S) [Mass/Vol] 3.3 g/dL Normal [facility] Comment on above: Performed By: #### L IPA, MG, CMP, VIJI ####[facility] Wcuayefujq1913 [place] [address]Dr. Margotnicole Haja Glucose [Mass/Vol] 96 mg/dL Normal 74-106 [facility] Comment on above: Performed By: #### L IPA, MG, CMP, VIJI ####[facility] Fodxlbdjdw[address] [place], [place] [address]Dr. Margotnicole Smyth Potassium [Moles/Vol] 3.8 mmol/L Normal 3.5-5.1 [facility] Comment on above: Performed By: #### L IPA, MG, CMP, VIJI ####[facility] Bmxknfdicv[address] [place], [place] [address]Dr. Tadeo Smyth Protein [Mass/Vol] 6.5 g/dL Normal 6.4-8.2 [facility] Comment on above: Performed By: #### L IPA, MG, CMP, VIJI ####[facility] Ohczrhoedy1068 [place] [address]Dr. Margotnicole Smyth Sodium [Moles/Vol] 142 mmol/L Normal 136-145 [facility] Comment on above: Performed By: #### L IPA, MG, CMP, VIJI ####[facility] Irmchapwre[address] [place], [place] [address]Dr. Margotnicole Smyth Urea nitrogen [Mass/Vol] 8.0 mg/dL Normal 7.0-18.0 [facility] Comment on above: Performed By: #### L IPA, MG, CMP, VIJI ####[facility] Zvbeqcgkbg[address] [place], [place] [address]Dr. Tadeo Smyth Urea nitrogen/Creatinine [Mass ratio] 10.8 mg/mg Normal [facility] Comment on above: Performed By: #### L IPA, MG, CMP, VIJI ####[facility] Czgsghowom[address] [place], [place] [address]Dr. Tadeo Haja AMMONIAon 11-01-2022 Ammonia (P) [Moles/Vol] 18 umol/L Normal 11-32 [facility] Comment on above: Performed By: #### A MM ####[facility] Irdkgxoacb[address] [place], [place] [address]Dr. Margotnicole Smyth AMYLASEon 11-01-2022 Amylase [Catalytic activity/Vol] 43 U/L Normal 25-115 [facility] Comment on above: Performed By: #### M G, VIJI, LIPA, CMP ####[facility] Cvbzbhvfyp8[address] [place], [place] [address]Dr. Margotnicole Haja CBC AUTO DIFFon 11-01-2022 BASO # 0.0 103/ul Normal 0.0-0.1 [facility] Comment on above: Performed By: #### C BC ####[facility] Bkkizkrloo[address] [place], [place] [address]Dr. Tadeo Smyth Basophils/100 WBC (Bld) 0.6 % Normal 0.2-2.0 [facility] Comment on above: Performed By: #### C BC ####[facility] Hosvfrmizx2110[address] [place], [place] [address]Dr. Tadeo Haja EO # 0.1 103/ul Normal 0.0-0.7 [facility] Comment on above: Performed By: #### C BC ####[facility] Zjiuyxylbr[address] [place], [place] [address]Dr. Tadeo Smyth Eosinophils/100 WBC (Bld) 1.5 % Normal 0.9-7.0 [facility] Comment on above: Performed By: #### C BC ####[facility] Evgwgavsmg98[address] [place], [place] [address]Dr. Tadeo Smyth Erythrocyte distribution width (RBC) [Ratio] 13.5 % Normal 11.0-15.0 [facility] Comment on above: Performed By: #### C BC ####[facility] Qnfbqgntmt[address] [place], [place] [address]Dr. Tadeo Smyth Hematocrit (Bld) [Volume fraction] 37.7 % Normal 36.0-48.0 [facility] Comment on above: Performed By: #### C BC ####[facility] Xslzxqrmls92[address] [place], [place] [address]Dr. Tadeo Smyth Hemoglobin (Bld) [Mass/Vol] 12.5 g/dL Normal 12.0-16.0 [facility] Comment on above: Performed By: #### C BC ####[facility] Nebxylecwu213[address] [place], [place] [address]Dr. Tadeo Smyth IG # 0.02 10e3/ul Normal 0.00-0.03 [facility] Comment on above: Performed By: #### C BC ####[facility] Fjbxjogubv[address] [place], [place] [address]Dr. Tadeo Smyth IG % 0.4 % Normal 0.0-0.5 [facility] Comment on above: Performed By: #### C BC ####[facility] Gkhaiwwjig8[address] [place], [place] [address]DrNeo Smyth LYMPH # 1.3 103/ul Normal 1.2-3.8 [facility] Comment on above: Performed By: #### C BC ####[facility] Eddzuphvth5724 [place] [address]DrNeo Smyth Lymphocytes/100 WBC (Bld) 23.9 % Normal 20.5-60.0 [facility] Comment on above: Performed By: #### C BC ####[facility] Wzdfawcpmi34[address] [place], [place] [address]DrNeo Smyth MANUAL DIFF REQ NO Normal [facility] Comment on above: Performed By: #### C BC ####[facility] Qfwltzugwe2881 [place] [address]DrNeo Smyth MCH (RBC) [Entitic mass] 29.8 pg Normal 26.7-34.0 [facility] Comment on above: Performed By: #### C BC ####[facility] Aduhkfjnsb[address] [place], [place] [address]DrNeo Smyth MCHC (RBC) [Mass/Vol] 33.2 g/dL Normal 29.9-35.2 [facility] Comment on above: Performed By: #### C BC ####[facility] Kdymaipuma[address] [place], [place] [address]DrNeo Smyth MCV (RBC) [Entitic vol] 89.8 fL Normal 81.0-99.0 [facility] Comment on above: Performed By: #### C BC ####[facility] Vpjylvwkkl[address] [place], [place] [address]DrNeo Smyth MONO # 0.3 103/ul Normal 0.3-0.8 [facility] Comment on above: Performed By: #### C BC ####[facility] Pxqukmbvwg[address] [place], [place] [address]DrNeo Smyth Monocytes/100 WBC (Bld) 5.2 % Normal 1.7-12.0 [facility] Comment on above: Performed By: #### C BC ####[facility] Hnpdomsltu639[address] [place], [place] [address]DrNeo Smyth NEUT # 3.6 103/ul Normal 1.4-6.5 [facility] Comment on above: Performed By: #### C BC ####[facility] Fkfxaqcgpm8381 [place] [address]Dr. Tadeo Smyth Neutrophils/100 WBC (Bld) 68.4 % Normal 43.0-75.0 [facility] Comment on above: Performed By: #### C BC ####[facility] Quamkentqw[address] [place], [place] [address]Dr. Tadeo Smyth Platelet mean volume (Bld) [Entitic vol] 9.0 fL Critically low 9.5-13.5 [facility] Comment on above: Performed By: #### C BC ####[facility] Izcdqrnfyv[address] [place], [place] [address]Dr. Tadeo Smyth PLT 356 103/ul Normal 150-450 [facility] Comment on above: Performed By: #### C BC ####[facility] Nvkqmegxds[address] [place], [place] [address]Dr. Tadeo Smyth RBC 4.20 106/ul Normal 4.20-5.40 [facility] Comment on above: Performed By: #### C BC ####[facility] Epjkjnhzml00[address] [place], [place] [address]Dr. Tadeo Smyth WBC 5.2 103/ul Normal 4.0-11.0 [facility] Comment on above: Performed By: #### C BC ####[facility] Gaszlsyibq[address] [place], [place] [address]Dr. Tadeo Smyth CT ABD/PELV W CONon 11-01-19 CT ABD/PELV W CON Normal [facility] CULTURE BLOODon 11-01-2022 Microscopic examination of blood, culture Culture Observations: NO GROWTH AT 5 DAYS. Isolate 1 BC_BA_NA Normal [facility] Comment on above: Performed By: #### B LDCX2 ####[facility] Safbdrvbmo40[address] [place], [place] [address]Dr. Tadeo Smyth Performed By: #### B LDCX1 ####[facility] Qjtmaavehu[address] [place], [place] [address]Dr. Tadeo Smyth CULTURE URINEon 11-01-2022 CULTURE URINE Culture Observations : LIGHT GROWTH OF MIXED GENITAL SINTIA. NO POTENTIAL PATHOGENS SEEN. Normal [facility] Comment on above: Performed By: #### U RCX ####[facility] Tynrekrqms[address] [place], [place] [address]Dr. Tadeo Smyth Covid-19 PCR ([facility])on 10-07 SARS-CoV-2 (COVID-19) RNA CHEN+probe Ql (Unsp spec) Not detected Normal NOT DETECTED [facility] Comment on above: Result Comment: When diagnostic [...] for this test is supported by the [place] [employer]'s declaration that [...] be used). Performed By: #### C VDTBH ####[facility] Kkblft[address]ew[address] [place], [place] [address]Dr. Tadeo Smyth LACTATE/LACTIC ACIDon 2022 Lactate [Moles/Vol] 0.7 mmol/L Normal 0.4-1.9 [facility] Comment on above: Performed By: #### L ACT ####[facility] I[address] [place], [place] [address]Dr. Tadeo Smyth LIPASEon 11-01-2022 Lipase [Catalytic activity/Vol] 58.0 U/L Critically low 73.0-393.0 [facility] Comment on above: Performed By: #### M G, VIJI, LIPA, CMP ####[facility] [address] [place] [address]Dr. Tadeo Smyth MAGNESIUMon 11-01-2022 Magnesium [Mass/Vol] 2.0 mg/dL Normal 1.8-2.4 [facility] Comment on above: Performed By: #### Clementina Botello, VIJI, LIPA, CMP ####[facility] [address] [place] [address]Dr. Tadeo Smyth PROF 14(COMP METB)on 023 Albumin [Mass/Vol] 3.6 g/dL Normal 3.4-5.0 [facility] Comment on above: Performed By: #### Clementina Botello, VIJI, LIPA, CMP ####[facility] [address] [place] [address]Dr. Tadeo Smyth Albumin/Globulin [Mass ratio] 1.0 {ratio} Normal [facility] Comment on above: Performed By: #### Clementina Botello, VIJI, LIPA, CMP ####[facility] [address] [place] [address]Dr. Tadeo Smyth ALP [Catalytic activity/Vol] 164 U/L Critically high 46-116 [facility] Comment on above: Performed By: #### Clementina Botello, VIJI, LIPA, CMP ####[facility] [address] [place] [address]Dr. Tadeo Smyth ALT [Catalytic activity/Vol] 22 U/L Normal 14-59 [facility] Comment on above: Performed By: #### Clementina Botello, VIJI, LIPA, CMP ####[facility] [address] [place] [address]Dr. Tadeo Smyth Anion gap [Moles/Vol] 11.5 mmol/L Normal [facility] Comment on above: Performed By: #### M Ayan, VIJI, LIPA, CMP ####[facility] [address] [place] [address]Dr. Tadeo Smyth AST [Catalytic activity/Vol] 17 U/L Normal 15-37 [facility] Comment on above: Performed By: #### Clementina Botello, VIJI, LIPA, CMP ####[facility] [address] [place] [address]Dr. Tadeo Smyth Bilirubin [Mass/Vol] 0.4 mg/dL Normal 0.2-1.0 [facility] Comment on above: Performed By: #### M G, VIJI, LIPA, CMP ####[facility] Eraqzgsasx[address] [place], [place] [address]Dr. Tadeo Smyth Calcium [Mass/Vol] 9.1 mg/dL Normal 8.5-10.1 [facility] Comment on above: Performed By: #### M G, VIJI, LIPA, CMP ####[facility] E[address] [place], [place] [address]Dr. Tadeo Smyth Chloride [Moles/Vol] 105 mmol/L Normal 98-107 [facility] Comment on above: Performed By: #### M G, VIJI, LIPA, CMP ####[facility] Ex[address] [place], [place] [address]Dr. Tadeo Smyth CO2 [Moles/Vol] 27.6 mmol/L Normal 21.0-32.0 [facility] Comment on above: Performed By: #### M G, VIJI, LIPA, CMP ####[facility] Nptx[address] [place], [place] [address]Dr. Tadeo Smyth Creatinine [Mass/Vol] 0.72 mg/dL Normal 0.55-1.02 [facility] Comment on above: Performed By: #### M G, VIJI, LIPA, CMP ####[facility] Axhxigpbk[address] [place], [place] [address]Dr. Tadeo Smyth EGFR-AF [place] >60 Normal >=60 [facility] Comment on above: Performed By: #### M G, VIJI, LIPA, CMP ####[facility] Tb[address] [place], [place] [address]Dr. Tadeo Smyth EGFR-NON AF [place] >60 Normal >=60 [facility] Comment on above: Performed By: #### M G, VIJI, LIPA, CMP ####[facility] [address] [place], [place] [address]Dr. Tadeo Smyth Globulin (S) [Mass/Vol] 3.6 g/dL Normal [facility] Comment on above: Performed By: #### M Ayan, VIJI, LIPA, CMP ####[facility] [address] [place] [address]Dr. Tadeo Smyth Glucose [Mass/Vol] 100 mg/dL Normal 74-106 [facility] Comment on above: Performed By: #### M G, VIJI, LIPA, CMP ####[facility] [address] [place] [address]Dr. Tadeo Smyth Potassium [Moles/Vol] 4.1 mmol/L Normal 3.5-5.1 [facility] Comment on above: Performed By: #### M Ayan, VIJI, LIPA, CMP ####[facility] Eydfwegdoa[address] [place], [place] [address]Dr. Tadeo Smyth Protein [Mass/Vol] 7.2 g/dL Normal 6.4-8.2 [facility] Comment on above: Performed By: #### M VIJI Botello LIPA, CMP ####[facility] [address] [place] [address]Dr. Tadeo Smyth Sodium [Moles/Vol] 140 mmol/L Normal 136-145 [facility] Comment on above: Performed By: #### M Ayan, VIJI, LIPA, CMP ####[facility] [address] [place] [address]Dr. Tadeo Smyth Urea nitrogen [Mass/Vol] 15.0 mg/dL Normal 7.0-18.0 [facility] Comment on above: Performed By: #### M Ayan, VIJI, LIPA, CMP ####[facility] [address]fp[address] [place] [address]Dr. Tadeo Smyth Urea nitrogen/Creatinine [Mass ratio] 20.8 mg/mg Normal [facility] Comment on above: Performed By: #### M Ayan, VIJI, LIPA, CMP ####[facility] [address] [place] [address]Dr. Tadeo Smyth UA RANDOM W/MICROSCOPICon BACTERIA TRACE Abnormal NONE SEEN [facility] Comment on above: Performed By: #### U AMIC ####[facility] [address] [place] [address]Dr. Tadeo Smyth Bilirubin Ql (U) Negative Normal NEGATIVE [facility] Comment on above: Performed By: #### U AMIC ####[facility] Rx[address]obxnsz[address] [place] [address]Dr. Tadeo Smyth CAST NONE SEEN Normal NONE SEEN [facility] Comment on above: Performed By: #### U AMIC ####[facility] Lc[address] [place], [place] [address]Dr. Tadeo Symth Clarity (U) CLEAR Normal CLEAR [facility] Comment on above: Performed By: #### U AMIC ####[facility] Qoz[address] [place], [place] [address]Dr. Tadoe Smyth Color (U) LT. YELLOW Normal YELLOW [facility] Comment on above: Performed By: #### U AMIC ####[facility] Er[address] [place], [place] [address]Dr. Tadeo Smyth Crystals LM Nom (Urine sed) NONE SEEN Normal NONE SEEN [facility] Comment on above: Performed By: #### U AMIC ####[facility] Z[address] [place], [place] [address]Dr. Tadeo Smyth Epithelial cells LM Ql (Urine sed) RARE Normal NONE SEEN /RARE [facility] Comment on above: Performed By: #### U AMIC ####[facility] I[address] [place], [place] [address]Dr. Tadeo Smyth Glucose Ql (U) Negative Normal NEGATIVE [facility] Comment on above: Performed By: #### U AMIC ####[facility] Agr[address] [place], [place] [address]Dr. Tadeo Smyth Hemoglobin Ql (U) TRACE-LYSED Abnormal NEGATIVE [facility] Comment on above: Performed By: #### U AMIC ####[facility] [address] [place], [place] [address]Dr. Tadeo Smyth Ketones Ql (U) Negative Normal NEGATIVE [facility] Comment on above: Performed By: #### U AMIC ####[facility] [address] [place] [address]Dr. Tadeo Smyth LEUKOCYTES Negative Normal NEGATIVE [facility] Comment on above: Performed By: #### U AMIC ####[facility] [address] [place] [address]Dr. Tdaeo Smyth MUCOUS NONE SEEN Normal NONE SEEN [facility] Comment on above: Performed By: #### U AMIC ####[facility] [address] [place] [address]Dr. Tadeo Smyth Nitrite Ql (U) Negative Normal NEGATIVE [facility] Comment on above: Performed By: #### U AMIC ####[facility] [address]su[address] [place] [address]Dr. Tadeo Smyth pH (U) 6.0 [pH] Normal 5-9 [facility] Comment on above: Performed By: #### U AMIC ####[facility] [address] [place], [place] [address]Dr. Tadeo Smyth RBC 0-2 Normal 0-2 [facility] Comment on above: Performed By: #### U AMIC ####[facility] R[address]kt[address] [place] [address]Dr. Tadeo Smyth SPEC GRAVITY 1.010 Normal 1.005-<=1.0 25 [facility] Comment on above: Performed By: #### U AMIC ####[facility] [address] [place] [address]Dr. Tadeo Smyth UA PROTEIN Negative Normal NEGATIVE/ TRACE [facility] Comment on above: Performed By: #### U AMIC ####[facility] [address] [place] [address]Dr. Tadeo Smyth Urobilinogen Qn (U) 0.2 {Benito'U}/dL Normal 0.2 - 1. 0 [facility] Comment on above: Performed By: #### U AMIC ####[facility] [address] [place] [address]Dr. Tadeo Smyth WBC 0-2 Abnormal NONE SEEN [facility] Comment on above: Performed By: #### U AMIC ####[facility] [address] [place], [place] [address]PnNeo Symth Activated partial thrombopla stin time (aPTT) in platelet poor plasma by coagulation aOrdered By: Conner Griffith on 10-26-2022 aPTT Coag (PPP) [Time] 30.8 s 25.1-36.5 [facility] Albumin [Mass/volume] in Ser um or PlasmaOrdered By: Conner Griffith on 10-26-2022 Albumin [Mass/Vol] 3.6 g/dL 3.2-5.5 [facility] Automated erythrocytes count in urine sediment (number/area)Ordered By: Conner Griffith on 10-26-2022 RBC Auto (Urine sed) [#/Area] 0-1 [HPF] 0-4 [facility] Automated leukocytes count i n urine sediment (number/area)Ordered By: Conner Griffith on 10-26-2022 WBC Auto (Urine sed) [#/Area] None seen [HPF] 0-4 [facility] Basophils Auto (Bld) [#/Vol] Ordered By: Conner Griffith on 10-26-2022 Basophils (Bld) [#/Vol] 0.0 10*3/uL 0.0-0.2 [facility] Basophils/100 WBC Auto (Bld) Ordered By: Conner Griffith on 10-26-2022 Basophils/100 WBC (Bld) 0.6 % . [facility] Bilirubin Test strip Ql (U)O rdered By: Conner Griffith on 10-26-2022 Bilirubin Ql (U) Negative Negative [facility] CT abdomen pelvis w conon CT abdomen pelvis w con [facility] [place] [address] CT Scan Report Signed Patient: Constantino Cardoso MR#: [id number] : 1970 Acct:[id number] Age/Sex: 52 / F ADM Date: 10/26/22 Loc: ER Room: Type: [facility] ER Attending Dr: Copies to: Conner Griffith [...] Columba Domínguez M.D.10/26/2022 7:46 AM Dictation Location: [place] [address] Transcribed By: ANDREA 10/26/22745 Dictated By: Columba Domínguez MD 10/26/2238 Signed By: 10/26/22745 Normal [facility] Color Auto (U)Ordered By: Kevin Griffith on 10-26-2022 Color (U) Yellow Yellow [facility] Complete Blood Count Auto Di ffon 10-26-2022 Basophils (Bld) [#/Vol] 0.0 10*3/uL Normal 0.0-0.2 [facility] Comment on above: Result Comment: PERF ORMED BY: [place] [address] PATHOLOGIST DETECTIVE AND INTELLIGENCE ANALYST ROOSEVELT KEYES M.D. Performed By: #### H EPATIC, CBC, BMP, LIPASE #### [address] Basophils/100 WBC (Bld) 0.6 % Normal . [facility] Comment on above: Performed By: #### H EPATIC, CBC, BMP, LIPASE #### [address] Eosinophils (Bld) [#/Vol] 0.2 10*3/uL Normal 0.0-0.45 [facility] Comment on above: Performed By: #### H EPATIC, CBC, BMP, LIPASE #### [address] Eosinophils/100 WBC (Bld) 3.3 % Normal . [facility] Comment on above: Performed By: #### H EPATIC, CBC, BMP, LIPASE #### [address] Erythrocyte distribution width (RBC) [Ratio] 14.5 % Normal 11.9-15.3 [facility] Comment on above: Performed By: #### H EPATIC, CBC, BMP, LIPASE #### [facility] [address] [place] [address] Hematocrit (Bld) [Volume fraction] 36.7 % Normal 34.0-46.4 [facility] Comment on above: Performed By: #### H EPATIC, CBC, BMP, LIPASE #### [facility] [address] [place] [address] Hemoglobin (Bld) [Mass/Vol] 12.1 g/dL Normal 11.8-15.4 [facility] Comment on above: Performed By: #### H EPATIC, CBC, BMP, LIPASE #### [address] Lymphocytes (Bld) [#/Vol] 1.9 10*3/uL Normal 1.00-4.8 [facility] Comment on above: Performed By: #### H EPATIC, CBC, BMP, LIPASE #### [address] Lymphocytes/100 WBC (Bld) 29.7 % Normal . [facility] Comment on above: Performed By: #### H EPATIC, CBC, BMP, LIPASE #### [address] MCH (RBC) [Entitic mass] 29.3 pg Normal 24.7-34.3 [facility] Comment on above: Performed By: #### H EPATIC, CBC, BMP, LIPASE #### [address] MCV (RBC) [Entitic vol] 88.5 fL Normal 80-100 [facility] Comment on above: Performed By: #### H EPATIC, CBC, BMP, LIPASE #### [address] Mean Corpuscular HGB Conc 33.1 g/dL Normal 32.0-35.0 [facility] Comment on above: Performed By: #### H EPATIC, CBC, BMP, LIPASE #### [address] Monocytes (Bld) [#/Vol] 0.4 10*3/uL Normal 0.0-0.8 [facility] Comment on above: Performed By: #### H EPATIC, CBC, BMP, LIPASE #### [address] Monocytes/100 WBC (Bld) 16.27 % Normal 0.00-20.00 [facility] Comment on above: Performed By: #### H EPATIC, CBC, BMP, LIPASE #### [address] Monocytes/100 WBC (Bld) 7.1 % Normal . [facility] Comment on above: Performed By: #### H EPATIC, CBC, BMP, LIPASE #### [facility] [address] [place] [address] Neutrophils (Bld) [#/Vol] 3.7 10*3/uL Normal 1.8-7.7 [facility] Comment on above: Performed By: #### H EPATIC, CBC, BMP, LIPASE #### [address] Neutrophils/100 WBC (Bld) 59.3 % Normal . [facility] Comment on above: Performed By: #### H EPATIC, CBC, BMP, LIPASE #### [address] NRBC% 0.3 /100{WBC} Normal 0-0.5 [facility] Comment on above: Performed By: #### H EPATIC, CBC, BMP, LIPASE #### [address] Platelet mean volume (Bld) [Entitic vol] 7.5 fL Normal 6.3-10.7 [facility] Comment on above: Performed By: #### H EPATIC, CBC, BMP, LIPASE #### [address] Platelets (Bld) [#/Vol] 379 10*3/uL Normal 150-450 [facility] Comment on above: Performed By: #### H EPATIC, CBC, BMP, LIPASE #### [address] RBC (Bld) [#/Vol] 4.14 10*6/uL Normal 3.60-5.00 [facility] Comment on above: Performed By: #### H EPATIC, CBC, BMP, LIPASE #### [place] [address] [place] WBC (Bld) [#/Vol] 6.3 10*3/uL Normal 3.8-11.6 [facility] Comment on above: Performed By: #### H EPATIC, CBC, BMP, LIPASE #### [facility] [address] [place] [address] Comprehensive Metabolic Pane miranda 10-26-2022 Albumin [Mass/Vol] 3.6 g/dL Normal 3.2-5.5 [facility] Comment on above: Performed By: #### H EPATIC, CBC, BMP, LIPASE #### [facility] [address] [place] [address] Albumin/Globulin [Mass ratio] 1.1 {ratio} Normal [facility] Comment on above: Performed By: #### H EPATIC, CBC, BMP, LIPASE #### [address] ALP [Catalytic activity/Vol] 121 U/L High 32-92 [facility] Comment on above: Performed By: #### H EPATIC, CBC, BMP, LIPASE #### [address] ALT [Catalytic activity/Vol] 18 U/L Normal 10-60 [facility] Comment on above: Performed By: #### H EPATIC, CBC, BMP, LIPASE #### [address] Anion gap [Moles/Vol] 11.3 mmol/L Normal 6.0-15.0 [facility] [place] [facility] Comment on above: Performed By: #### H EPATIC, CBC, BMP, LIPASE #### [address] AST [Catalytic activity/Vol] 19 U/L Normal 10-42 [facility] Comment on above: Performed By: #### H EPATIC, CBC, BMP, LIPASE #### [facility] [address] [place] [address] Bilirubin [Mass/Vol] 0.4 mg/dL Normal 0.3-1.2 [facility] Comment on above: Performed By: #### H EPATIC, CBC, BMP, LIPASE #### [facility] [address] [place] [address] Calcium [Mass/Vol] 8.9 mg/dL Normal 8.2-10.2 [facility] Comment on above: Performed By: #### H EPATIC, CBC, BMP, LIPASE #### [facility] [address] [place] [address] Chloride [Moles/Vol] 108 mmol/L Normal 95-114 [facility] Comment on above: Performed By: #### H EPATIC, CBC, BMP, LIPASE #### [facility] [address] [place] [address] CO2 [Moles/Vol] 25.1 mmol/L Normal 22.0-30.0 [facility] Comment on above: Performed By: #### H EPATIC, CBC, BMP, LIPASE #### [address] Creatinine [Mass/Vol] 0.81 mg/dL Normal 0.44-1.03 [facility] Comment on above: Performed By: #### H EPATIC, CBC, BMP, LIPASE #### [address] Creatinine Clr Calc Pharmacy 93.01 [facility] Comment on above: Performed By: #### H EPATIC, CBC, BMP, LIPASE #### [address] Estimated GFR ( Roberto > 60 [facility] Comment on above: Result Comment: GFR estimated reference range: According to KDOQI guidelines, <60 ml/min/1.73m2 is sufficient to diagnose a patient with chronic kidney disease. Performed By: #### H EPATIC, CBC, BMP, LIPASE #### [facility] [address] [place] [address] Estimated GFR (Non- Am > 60 [facility] Comment on above: Performed By: #### H EPATIC, CBC, BMP, LIPASE #### [address] Globulin (S) [Mass/Vol] 3.2 g/dL [facility] Comment on above: Performed By: #### H EPATIC, CBC, BMP, LIPASE #### [facility] [address] Glucose [Mass/Vol] 95 mg/dL Normal 70-100 [facility] Comment on above: Result Comment: [facility] Glucose Reference Range is dependent on time and content of last meal. Glucose of more than 200 mg/dL in a nonstressed, ambulatory subject supports the diagnosis of Diabetes Mellitus. ADA recommended reference range Performed By: #### H EPATIC, CBC, BMP, LIPASE #### [address] Potassium [Moles/Vol] 3.4 mmol/L Low 3.5-5.1 [facility] Comment on above: Performed By: #### H EPATIC, CBC, BMP, LIPASE #### [address] Protein [Mass/Vol] 6.8 g/dL Normal 6.1-7.9 [facility] Comment on above: Performed By: #### H EPATIC, CBC, BMP, LIPASE #### [address] Sodium [Moles/Vol] 141 mmol/L Normal 136-146 [facility] Comment on above: Performed By: #### H EPATIC, CBC, BMP, LIPASE #### [address] Urea nitrogen [Mass/Vol] 18 mg/dL Normal 9-23 [facility] Comment on above: Performed By: #### H EPATIC, CBC, BMP, LIPASE #### [address] Creatinine and Glomerular fi ltration rate.predicted panel (S/P/Bld)Ordered By: Conner Griffith on 10-26-2022 Creatinine [Mass/Vol] 0.81 mg/dL 0.44-1.03 [facility] Dipstick and Microscopicon 0 10-26-2022 Appearance (U) Clear Normal Clear [facility] Comment on above: Order Comment: Name Collection Type:: Clean-Voided Midstream Performed By: #### H EPATIC, CBC, BMP, LIPASE #### [facility] [address] [place] [address] [place] Bacteria,Urine None Seen Normal None Seen [facility] Comment on above: Order Comment: Name Collection Type:: Clean-Voided Midstream Performed By: #### H EPATIC, CBC, BMP, LIPASE #### [facility] [address] [place] [address] [place] Bilirubin,Urine Negative Normal Negative [facility] Comment on above: Order Comment: Name Collection Type:: Clean-Voided Midstream Performed By: #### H EPATIC, CBC, BMP, LIPASE #### [facility] [address] Color (U) Yellow Normal Yellow [facility] Comment on above: Order Comment: Name Collection Type:: Clean-Voided Midstream Performed By: #### H EPATIC, CBC, BMP, LIPASE #### [facility] [address] [place] [address] Glucose Ql (U) Normal Normal Normal [facility] Comment on above: Order Comment: Name Collection Type:: Clean-Voided Midstream Performed By: #### H EPATIC, CBC, BMP, LIPASE #### [facility] [address] [place] [address] Hyaline Casts,Urine None Seen Normal 0-8 [facility] Comment on above: Order Comment: Name Collection Type:: Clean-Voided Midstream Result Comment: PERF ORMED BY: [place] [address] PATHOLOGIST DETECTIVE AND INTELLIGENCE ANALYST ROOSEVELT KEYES M.D. Performed By: #### H EPATIC, CBC, BMP, LIPASE #### [facility] [address] [place] [address] [place] Ketones Ql (U) Negative Normal Negative [facility] Comment on above: Order Comment: Name Collection Type:: Clean-Voided Midstream Performed By: #### H EPATIC, CBC, BMP, LIPASE #### [facility] [address] [place] [address] Leukocyte esterase Test strip Ql (U) 1+ High Negative [facility] Comment on above: Order Comment: Name Collection Type:: Clean-Voided Midstream Performed By: #### H EPATIC, CBC, BMP, LIPASE #### [address] Nitrite,Urine Negative Normal Negative [facility] Comment on above: Order Comment: Name Collection Type:: Clean-Voided Midstream Performed By: #### H EPATIC, CBC, BMP, LIPASE #### [address] Occult Blood,Urine Negative Normal Negative [facility] Comment on above: Order Comment: Name Collection Type:: Clean-Voided Midstream Result Comment: PERF ORMED BY: [place] [address] PATHOLOGIST DETECTIVE AND INTELLIGENCE ANALYST ROOSEVELT KEYES M.D. Performed By: #### H EPATIC, CBC, BMP, LIPASE #### [address] pH (U) 6.5 [pH] Normal 5.0-9.0 [facility] Comment on above: Order Comment: Name Collection Type:: Clean-Voided Midstream Performed By: #### H EPATIC, CBC, BMP, LIPASE #### [address] Protein,Urine Negative Normal Negative [facility] Comment on above: Order Comment: Name Collection Type:: Clean-Voided Midstream Performed By: #### H EPATIC, CBC, BMP, LIPASE #### [address] RBC LM.HPF (Urine sed) [#/Area] 0 /[HPF] Normal 0-4 [facility] Comment on above: Order Comment: Name Collection Type:: Clean-Voided Midstream Performed By: #### H EPATIC, CBC, BMP, LIPASE #### [address] Specificy [place],Urine 1.019 Normal 1.001-1.030 [facility] Comment on above: Order Comment: Name Collection Type:: Clean-Voided Midstream Performed By: #### H EPATIC, CBC, BMP, LIPASE #### [facility] [address] Squamous Epithelial Cell,Urine 1-2 Normal 0-2 [facility] Comment on above: Order Comment: Name Collection Type:: Clean-Voided Midstream Performed By: #### H EPATIC, CBC, BMP, LIPASE #### [facility] [address] Urobilinogen,Urine Normal Normal Normal [facility] Comment on above: Order Comment: Name Collection Type:: Clean-Voided Midstream Performed By: #### H EPATIC, CBC, BMP, LIPASE #### [facility] [address] [place] [address] WBC,Urine None Seen Normal 0-4 [facility] [facility] Comment on above: Order Comment: Name Collection Type:: Clean-Voided Midstream Performed By: #### H EPATIC, CBC, BMP, LIPASE #### [facility] [address] [place] [address] Eosinophils Auto (Bld) [#/Vo l]Ordered By: Conner Griffith on 10-26-2022 Eosinophils (Bld) [#/Vol] 0.2 10*3/uL 0.0-0.45 [facility] Eosinophils/100 WBC Auto (Bl d)Ordered By: Conner Griffith on 10-26-2022 Eosinophils/100 WBC (Bld) 3.3 % . [facility] Erythrocyte distribution wid th Auto (RBC) [Ratio]Ordered By: Conner Griffith on 10-26-2022 Erythrocyte distribution width (RBC) [Ratio] 14.5 % 11.9-15.3 [facility] Estimated glomerular filtrat ion rate (GFR) non- AmericanOrdered By: Conner Griffith on 10-26-2022 GFR/1.73 sq M.predicted among non-blacks MDRD (S/P/Bld) [Vol rate/Area] > 60 mL/Min [facility] Globulin Calc (S) [Mass/Vol] Ordered By: Conner Griffith on 10-26-2022 Globulin (S) [Mass/Vol] 3.2 g/dL [facility] Hematocrit Auto (Bld) [Volum e fraction]Ordered By: Conner Griffith on 10-26-2022 Hematocrit (Bld) [Volume fraction] 36.7 % 34.0-46.4 [facility] Hemoglobin [Mass/volume] in BloodOrdered By: Conner Griffith on 10-26-2022 Hemoglobin (Bld) [Mass/Vol] 12.1 g/dL 11.8-15.4 [facility] Ketones Auto test strip (U) [Mass/Vol]Ordered By: Conner Griffith on 10-26-2022 Ketones (U) [Mass/Vol] Negative Negative [facility] Laboratory - Chemistry and C hemistry - challengeOrdered By: Conner Griffith on 10-26-2022 Lipase [Catalytic activity/Vol] 37.0 U/L [facility] - CoagulationOrde red By: Conner Griffith on 10-26-2022 PT Coag (PPP) [Time] 10.6 s 9.0-12.9 [facility] Laboratory - UrinalysisOrder ed By: Conner Griffith on 10-26-2022 Hyaline casts LM Ql (Urine sed) None seen [LPF] 0-8 [facility] Lactic Acidon 10-26-2022 Lactate [Moles/Vol] 1.0 mmol/L Normal 0.5-2.2 [facility] Comment on above: Result Comment: PERF ORMED BY: [place] [address] PATHOLOGIST DETECTIVE AND INTELLIGENCE ANALYST ROOSEVELT KEYES M.D. Performed By: #### H EPATIC, CBC, BMP, LIPASE #### [address] Leukocytes [#/volume] correc jun for nucleated erythrocytes in Blood by Automated counOrdered By: Conner Griffith on 10-26-2022 WBC corrected for nucl RBC Auto (Bld) [#/Vol] 6.3 10*3/uL 3.8-11.6 [facility] Lipaseon 10-26-2022 Lipase [Catalytic activity/Vol] 37.0 U/L Normal [facility] Comment on above: Result Comment: PERF ORMED BY: [place] [address] PATHOLOGIST DETECTIVE AND INTELLIGENCE ANALYST ROOSEVELT KEYES M.D. Performed By: #### H EPATIC, CBC, BMP, LIPASE #### [facility] [address] Lymphocytes Auto (Bld) [#/Vo l]Ordered By: Conner Griffith on 10-26-2022 Lymphocytes (Bld) [#/Vol] 1.9 10*3/uL 1.00-4.8 [facility] Lymphocytes/100 WBC Auto (Bl d)Ordered By: Conner Griffith on 10-26-2022 Lymphocytes/100 WBC (Bld) 29.7 % . [facility] MCH Auto (RBC) [Entitic mass ]Ordered By: Conner Griffith on 10-26-2022 MCH (RBC) [Entitic mass] 29.3 pg 24.7-34.3 [facility] MCHC Auto (RBC) [Mass/Vol]Or dered By: Conner Griffith on 10-26-2022 MCHC (RBC) [Mass/Vol] 33.1 g/dL 32.0-35.0 [facility] MCV Auto (RBC) [Entitic vol] Ordered By: Conner Griffith on 10-26-2022 MCV (RBC) [Entitic vol] 88.5 fL 80-100 [facility] Monocyte distribution width [Entitic volume] in Blood by AutomatedOrdered By: Conner Griffith on 10-26-2022 Monocyte distribution width Auto (Bld) [Entitic vol] 16.27 % 0.00-20.00 [facility] Monocytes Auto (Bld) [#/Vol] Ordered By: Conner Griffith on 10-26-2022 Monocytes (Bld) [#/Vol] 0.4 10*3/uL 0.0-0.8 [facility] Monocytes/100 WBC Auto (Bld) Ordered By: Conner Griffith on 10-26-2022 Monocytes/100 WBC (Bld) 7.1 % . [facility] Neutrophils Auto (Bld) [#/Vo l]Ordered By: Conner Griffith on 10-26-2022 Neutrophils (Bld) [#/Vol] 3.7 10*3/uL 1.8-7.7 [facility] Neutrophils/100 WBC Auto (Bl d)Ordered By: Conner Griffith on 10-26-2022 Neutrophils/100 WBC (Bld) 59.3 % . [facility] Nitrite Test strip Ql (U)Ord ered By: Conner Griffith on 10-26-2022 Nitrite Ql (U) Negative Negative [facility] No Panel InformationOrdered By: Conner Griffith on 10-26-2022 Estimated GFR () > 60 mL/Min [facility] Comment on above: GFR estimated refere nce range: According to KDOQI guidelines, <60 ml/min/1.73m2 is sufficient to diagnose a patient with chronic kidney disease. Pharmacy Creatinine Clearance (Chem 93.01 [facility] Nucleated erythrocytes [Pres ence] in Blood by Automated countOrdered By: Conner Griffith on 10-26-2022 Nucleated RBC Auto Ql (Bld) 0.3 /100{WBC} 0-0.5 [facility] Partial Thromboplastin Timeo n 10-26-2022 aPTT Coag (Bld) [Time] 30.8 s Normal 25.1-36.5 [facility] Comment on above: Result Comment: PERF ORMED BY: [place] [address] PATHOLOGIST DETECTIVE AND INTELLIGENCE ANALYST ROOSEVELT KEYES M.D. Performed By: #### H EPATIC, CBC, BMP, LIPASE #### [address] Platelet mean volume Auto (B ld) [Entitic vol]Ordered By: Conner Griffith on 10-26-2022 Platelet mean volume (Bld) [Entitic vol] 7.5 fL 6.3-10.7 [facility] Platelet poor plasma interna tional normalized ratio (INR) by coagulation assay (relatOrdered By: Conner Griffith on 10-26-2022 INR Coag (PPP) [Relative time] 0.9 {INR} [facility] Comment on above: INR Therapeutic Rang e [...] 10-26-2022 Platelets (Bld) [#/Vol] 379 10*3/uL 150-450 [facility] Protein Auto test strip (U) [Mass/Vol]Ordered By: Conner Griffith on 10-26-2022 Protein (U) [Mass/Vol] Negative Negative [facility] Protein [Mass/volume] in Ser um or PlasmaOrdered By: Conner Griffith on 10-26-2022 Protein [Mass/Vol] 6.8 g/dL 6.1-7.9 [facility] Prothrombin Time INRon 10-26 INR Coag (PPP) [Relative time] 0.9 {INR} Normal [facility] Comment on above: Result Comment: INR Therapeutic [...] H EPATIC, CBC, BMP, LIPASE #### [facility] [address] PT Coag (PPP) [Time] 10.6 s Normal 9.0-12.9 [facility] Comment on above: Performed By: #### H EPATIC, CBC, BMP, LIPASE #### [facility] [address] RBC Auto (Bld) [#/Vol]Ordere d By: Conner Griffith on 10-26-2022 RBC (Bld) [#/Vol] 4.14 10*6/uL 3.60-5.00 [facility] Serum or plasma alanine cooley otransferase measurement without P-5'-P (enzymatic activiOrdered By: Conner Griffith on 10-26-2022 ALT No additional P-5'-P [Catalytic activity/Vol] 18 U/L 10-60 [facility] Serum or plasma albumin/glob ulin mass ratioOrdered By: Conner Griffith on 10-26-2022 Albumin/Globulin [Mass ratio] 1.1 {ratio} [facility] Serum or plasma alkaline augustin sphatase measurement (enzymatic activity/volume)Ordered By: Conner Griffith on 10-26-2022 ALP [Catalytic activity/Vol] 121 U/L 32-92 [facility] Serum or plasma anion gap de terminationOrdered By: Conner Griffith on 10-26-2022 Anion gap [Moles/Vol] 11.3 mmol/L 6.0-15.0 [facility] Serum or plasma aspartate am inotransferase measurement (enzymatic activity/volume)Ordered By: Conner Griffith on 10-26-2022 AST [Catalytic activity/Vol] 19 U/L 10-42 [facility] Serum or plasma calcium julee urement (mass/volume)Ordered By: Conner Griffith on 10-26-2022 Calcium [Mass/Vol] 8.9 mg/dL 8.2-10.2 [facility] Serum or plasma chloride julio surement (moles/volume)Ordered By: Conner Griffith on 10-26-2022 Chloride [Moles/Vol] 108 mmol/L 95-114 [facility] Serum or plasma glucose julee urement (mass/volume)Ordered By: Conner Griffith on 10-26-2022 Glucose [Mass/Vol] 95 mg/dL 70-100 [facility] Comment on above: ADA recommended refe rence rangeRandom Glucose Reference Range is dependent on time and content of last meal. Glucose of more than 200 mg/dL in a nonstressed, ambulatory subject supports the diagnosis of Diabetes Mellitus. Serum or plasma potassium me asurement (moles/volume)Ordered By: Conner Griffith on 10-26-2022 Potassium [Moles/Vol] 3.4 mmol/L 3.5-5.1 [facility] Serum or plasma sodium measu rement (moles/volume)Ordered By: Conner Griffith on 10-26-2022 Sodium [Moles/Vol] 141 mmol/L 136-146 [facility] Serum or plasma total biliru bin measurement (mass/volume)Ordered By: Conner Griffith on 10-26-2022 Bilirubin [Mass/Vol] 0.4 mg/dL 0.3-1.2 [facility] Serum or plasma total carbon dioxide measurement (moles/volume)Ordered By: Conner Griffith on 10-26-2022 CO2 [Moles/Vol] 25.1 mmol/L 22.0-30.0 [facility] Serum or plasma urea nitroge n measurement (mass/volume)Ordered By: Conner Griffith on 10-26-2022 Urea nitrogen [Mass/Vol] 18 mg/dL 9-23 [facility] Specific gravity Auto test s trip (U) [Rel density]Ordered By: Conner Griffith on 10-26-2022 Specific gravity (U) [Rel density] 1.019 1.001-1.030 [facility] Squamous epithelial cells de tection in urine sediment by light microscopyOrdered By: Conner Griffith on 10-26-2022 Epithelial cells.squamous LM Ql (Urine sed) 1-2 [HPF] 0-2 [facility] Urine bacteria detection by automated methodOrdered By: Conner Griffith on 10-26-2022 Bacteria Auto Ql (U) None seen None Seen [facility] Urine clarity by refractomet ry automatedOrdered By: Conner Griffith on 10-26-2022 Clarity Refractometry automated (U) Clear Clear [facility] Urine glucose measurement by automated test strip (mass/volume)Ordered By: Conner Griffith on 10-26-2022 Glucose Auto test strip (U) [Mass/Vol] Normal mg/dL Normal [facility] Urine hemoglobin detection b y automated test stripOrdered By: Conner Griffith on 10-26-2022 Hemoglobin Auto test strip Ql (U) Negative Negative [facility] Urine lactic acid measuremen tOrdered By: Conner Griffith on 10-26-2022 Lactate (U) [Moles/Vol] 1.0 mmol/L 0.5-2.2 [facility] Urine leukocyte esterase det ection by automated test stripOrdered By: Conner Griffith on 10-26-2022 Leukocyte esterase Auto test strip Ql (U) 1+ Negative [facility] Urobilinogen Auto test strip (U) [Mass/Vol]Ordered By: Conner Griffith on 10-26-2022 Urobilinogen (U) [Mass/Vol] Normal mg/dL Normal [facility] WBC Auto (Bld) [#/Vol]Ordere d By: Conner Griffith on 10-26-2022 WBC (Bld) [#/Vol] 6.3 10*3/uL 3.8-11.6 [facility] pH Auto test strip (U)Ordere d By: Conner Griffith on 10-26-2022 pH (U) 6.5 [pH] 5.0-9.0 [facility] Auth for Release of Medical Recordson 10-25-2022 Auth for Release of Medical Records [id number]:[address] [facility] CBC AUTO DIFFon 09-21-2022 BASO # 0.0 103/ul Normal 0.0-0.1 [facility] Comment on above: Performed By: #### C BC ####[facility] [address] [place] [address]Dr. Tadeo Smyth Basophils/100 WBC (Bld) 0.4 % Normal 0.2-2.0 [facility] Comment on above: Performed By: #### C BC ####[facility] [address] [place] [address]Dr. Tadeo Haja EO # 0.1 103/ul Normal 0.0-0.7 [facility] Comment on above: Performed By: #### C BC ####[facility] [address] [place] [address]Dr. Tadeo Smyth Eosinophils/100 WBC (Bld) 1.8 % Normal 0.9-7.0 [facility] Comment on above: Performed By: #### C BC ####[facility] [address] [place] [address]Dr. Tadeo Smyth Erythrocyte distribution width (RBC) [Ratio] 13.8 % Normal 11.0-15.0 [facility] Comment on above: Performed By: #### C BC ####[facility] [address] [place], [place] [address]Dr. Tadeo Smyth Hematocrit (Bld) [Volume fraction] 41.0 % Normal 36.0-48.0 [facility] Comment on above: Performed By: #### C BC ####[facility] [address] [place], [place] [address]Dr. Tadeo Smyth Hemoglobin (Bld) [Mass/Vol] 13.3 g/dL Normal 12.0-16.0 [facility] Comment on above: Performed By: #### C BC ####[facility] [address] [place], [place] [address]Dr. Tadeo Smyth IG # 0.01 10e3/ul Normal 0.00-0.03 [facility] Comment on above: Performed By: #### C BC ####[facility] [address] [place], [place] [address]Dr. Tadeo Smyth IG % 0.1 % Normal 0.0-0.5 [facility] Comment on above: Performed By: #### C BC ####[facility] Let[address] [place], [place] [address]Dr. Tadeo Smyth LYMPH # 1.7 103/ul Normal 1.2-3.8 [facility] Comment on above: Performed By: #### C BC ####[facility] [address] [place], [place] [address]Dr. Tadeo Smyth Lymphocytes/100 WBC (Bld) 24.8 % Normal 20.5-60.0 [facility] Comment on above: Performed By: #### C BC ####[facility] [address] [place], [place] [address]Dr. Tadeo Smyth MANUAL DIFF REQ NO Normal [facility] Comment on above: Performed By: #### C BC ####[facility] [address] [place], [place] [address]Dr. Tadeo Smyth MCH (RBC) [Entitic mass] 29.0 pg Normal 26.7-34.0 [facility] Comment on above: Performed By: #### C BC ####[facility] [address] [place] [address]Dr. Tadeo Smyth MCHC (RBC) [Mass/Vol] 32.4 g/dL Normal 29.9-35.2 [facility] Comment on above: Performed By: #### C BC ####[facility] [address] [place] [address]Dr. Tadeo Smyth MCV (RBC) [Entitic vol] 89.3 fL Normal 81.0-99.0 [facility] Comment on above: Performed By: #### C BC ####[facility] [address] [place] [address]Dr. Tadeo Haja MONO # 0.5 103/ul Normal 0.3-0.8 [facility] Comment on above: Performed By: #### C BC ####[facility] Y[address] [place], [place] [address]Dr. Tadeo Haja Monocytes/100 WBC (Bld) 6.9 % Normal 1.7-12.0 [facility] Comment on above: Performed By: #### C BC ####[facility] [address] [place] [address]Dr. Tadeo Smyth NEUT # 4.5 103/ul Normal 1.4-6.5 [facility] Comment on above: Performed By: #### C BC ####[facility] [address] [place], [place] [address]Dr. Tadeo Haja Neutrophils/100 WBC (Bld) 66.0 % Normal 43.0-75.0 [facility] Comment on above: Performed By: #### C BC ####[facility] [address] [place] [address]Dr. Tadeo Haja Platelet mean volume (Bld) [Entitic vol] 8.8 fL Critically low 9.5-13.5 [facility] Comment on above: Performed By: #### C BC ####[facility] [address] [place] [id number]. Tadeo Smyth PLT 384 103/ul Normal 150-450 [facility] Comment on above: Performed By: #### C BC ####[facility] [address] [place] [id number]. Tadeo Smyth RBC 4.59 106/ul Normal 4.20-5.40 [facility] Comment on above: Performed By: #### C BC ####[facility] [address] [place] [address]Dr. Tadeo Smyth WBC 6.8 103/ul Normal 4.0-11.0 [facility] Comment on above: Performed By: #### C BC ####[facility] [address] [place], [place] [address]Dr. Margotnicole Smyth PROF CHEM 8 (BAS METB)on Anion gap [Moles/Vol] 13.8 mmol/L Normal [facility] Comment on above: Performed By: #### B MP ####[facility] [address] [place], [place] [address]Dr. Tadeo Smyth Calcium [Mass/Vol] 9.6 mg/dL Normal 8.5-10.1 [facility] Comment on above: Performed By: #### B MP ####[facility] [address] [place], [place] [address]Dr. Tadeo Smyth Chloride [Moles/Vol] 106 mmol/L Normal 98-107 [facility] Comment on above: Performed By: #### B MP ####[facility] [address] [place], [place] [address]Dr. Tadeo Smyth CO2 [Moles/Vol] 25.9 mmol/L Normal 21.0-32.0 [facility] Comment on above: Performed By: #### B MP ####[facility] [address]rso[address]is[address] [place], [place] [address]Dr. Tadeo Smyth Creatinine [Mass/Vol] 0.92 mg/dL Normal 0.55-1.02 [facility] Comment on above: Performed By: #### B MP ####[facility] [address] [place] [address]Dr. Tadeo Smyth EGFR-AF [place]ER >60 Normal >=60 [facility] Comment on above: Performed By: #### B MP ####[facility] [address] [place] [address]Dr. Tadeo Smyth EGFR-NON AF [place] >60 Normal >=60 [facility] Comment on above: Performed By: #### B MP ####[facility] [address] [place] [address]Dr. Tadeo Smyth Glucose [Mass/Vol] 98 mg/dL Normal 74-106 [facility] Comment on above: Performed By: #### B MP ####[facility] [address] [place], [place] [address]Dr. Margotnicole Smyth Potassium [Moles/Vol] 3.7 mmol/L Normal 3.5-5.1 [facility] Comment on above: Performed By: #### B MP ####[facility] [address] [place], [place] [address]Dr. Tadeo Smyth Sodium [Moles/Vol] 142 mmol/L Normal 136-145 [facility] Comment on above: Performed By: #### B MP ####[facility] [address] [place], [place] [address]Dr. Tadeo Smyth Urea nitrogen [Mass/Vol] 19.0 mg/dL Critically high 7.0-18.0 [facility] Comment on above: Performed By: #### B MP ####[facility] [address] [place], [place] [address]Dr. Margotnicole Haja Urea nitrogen/Creatinine [Mass ratio] 20.7 mg/mg Normal [facility] Comment on above: Performed By: #### B MP ####[facility] [address] [place], [place] [address]Dr. Tadeo Haja XR KUB 1 VIEWon 09-21-2022 XR KUB 1 VIEW Normal [facility] Lab Reportson 09-20-2022 Lab Reports [id number]:[address] [facility] RAD - CT Reporton 09-20-2022 RAD - CT Report [id number]:[address] [facility] RAD - MISCon 09-20-2022 RAD - MISC [id number]#[id number]:[address] [facility] AMYLASEon 09-18-2022 Amylase [Catalytic activity/Vol] 58 U/L Normal 25-115 [facility] Comment on above: Performed By: #### L IPA, CMP, VIJI ####[facility] [address] [place] [address]Dr. Tadeo Smyth CBC AUTO DIFFon 09-18-2022 BASO # 0.0 103/ul Normal 0.0-0.1 [facility] Comment on above: Performed By: #### C BC ####[facility] [address] [place] [address]Dr. Tadeo Smyth Basophils/100 WBC (Bld) 0.3 % Normal 0.2-2.0 [facility] Comment on above: Performed By: #### C BC ####[facility] [address] [place], [place] [address]Dr. Tadeo Smyth EO # 0.1 103/ul Normal 0.0-0.7 [facility] Comment on above: Performed By: #### C BC ####[facility] [address] [place] [address]Dr. Tadeo Smyth Eosinophils/100 WBC (Bld) 1.8 % Normal 0.9-7.0 [facility] Comment on above: Performed By: #### C BC ####[facility] [address] [place], [place] [address]Dr. Tadeo Smyth Erythrocyte distribution width (RBC) [Ratio] 13.7 % Normal 11.0-15.0 [facility] Comment on above: Performed By: #### C BC ####[facility] F[address] [place], [place] [address]Dr. Tadeo Smyth Hematocrit (Bld) [Volume fraction] 37.4 % Normal 36.0-48.0 [facility] Comment on above: Performed By: #### C BC ####[facility] [address] [place] [address]DrNeo Smyth Hemoglobin (Bld) [Mass/Vol] 12.3 g/dL Normal 12.0-16.0 [facility] Comment on above: Performed By: #### C BC ####[facility] [address] [place], [place] [address]DrNeo Smyth IG # 0.02 10e3/ul Normal 0.00-0.03 [facility] Comment on above: Performed By: #### C BC ####[facility] [address] [place], [place] [address]DrNeo Smyth IG % 0.3 % Normal 0.0-0.5 [facility] Comment on above: Performed By: #### C BC ####[facility] [address] [place], [place] [address]DrNeo Smyth LYMPH # 2.2 103/ul Normal 1.2-3.8 [facility] Comment on above: Performed By: #### C BC ####[facility] [address] [place], [place] [address]DrNeo Smyth Lymphocytes/100 WBC (Bld) 29.3 % Normal 20.5-60.0 [facility] Comment on above: Performed By: #### C BC ####[facility] [address] [place], [place] [address]DrNeo Smyth MANUAL DIFF REQ NO Normal [facility] Comment on above: Performed By: #### C BC ####[facility] [address] [place] [address]DrNeo Smyth MCH (RBC) [Entitic mass] 29.0 pg Normal 26.7-34.0 [facility] Comment on above: Performed By: #### C BC ####[facility] [address] [place], [place] [address]DrNeo Smyth MCHC (RBC) [Mass/Vol] 32.9 g/dL Normal 29.9-35.2 [facility] Comment on above: Performed By: #### C BC ####[facility] [address] [place] [address]DrNeo Smyth MCV (RBC) [Entitic vol] 88.2 fL Normal 81.0-99.0 [facility] Comment on above: Performed By: #### C BC ####[facility] [address] [place] [address]DrNeo Smyth MONO # 0.5 103/ul Normal 0.3-0.8 [facility] Comment on above: Performed By: #### C BC ####[facility] [address] [place] [address]DrNeo Smyth Monocytes/100 WBC (Bld) 6.4 % Normal 1.7-12.0 [facility] Comment on above: Performed By: #### C BC ####[facility] [address]ft[address] [place], [place] [address]Dr. Tadeo Smyth NEUT # 4.7 103/ul Normal 1.4-6.5 [facility] Comment on above: Performed By: #### C BC ####[facility] [address] [place], [place] [address]Dr. Tadeo Smyth Neutrophils/100 WBC (Bld) 61.9 % Normal 43.0-75.0 [facility] Comment on above: Performed By: #### C BC ####[facility] [address] [place] [address]DrNeo Smyth Platelet mean volume (Bld) [Entitic vol] 9.0 fL Critically low 9.5-13.5 [facility] Comment on above: Performed By: #### C BC ####[facility] [address] [place], [place] [address]Dr. Tadeo Smyth PLT 395 103/ul Normal 150-450 [facility] Comment on above: Performed By: #### C BC ####[facility] [address] [place] [id number] Smyth RBC 4.24 106/ul Normal 4.20-5.40 [facility] Comment on above: Performed By: #### C BC ####[facility] [address] [place] [address]Dr. Tadeo Smyth WBC 7.6 103/ul Normal 4.0-11.0 [facility] Comment on above: Performed By: #### C BC ####[facility] Ivglorgdhv[address] [place], [place] [address]Dr. Tadeo Smyth CT ABD/PELV W CONon 09-18-[address] ABD/PELV W CON Normal [facility] ER URINE PROFILEon 3 Bilirubin Ql (U) SMALL Abnormal NEGATIVE [facility] Comment on above: Performed By: #### KAROL MERCHANT ####[facility] Owfaajmbmv[address] [place], [place] [address]Dr. Tadeo Smyth Clarity (U) CLEAR Normal CLEAR [facility] Comment on above: Performed By: #### KAROL MERCHANT ####[facility] Nxgulekihw27[address] [place], [place] [address]Dr. Tadeo Smyth Color (U) DK. YELLOW Normal YELLOW [facility] Comment on above: Performed By: #### KAROL MERCHANT ####[facility] Pzxfdxnuqo64[address] [place], [place] [address]Dr. Tadeo CAMARGOD A micrscopic examina tion will be performed if indicated. Normal [facility] Comment on above: Performed By: #### KAROL MERCHANT ####[facility] Rrudslzuml38[address] [place], [place] [address]Dr. Tadeo Smyth Glucose Ql (U) Negative Normal NEGATIVE [facility] Comment on above: Performed By: #### KAROL MERCHANT ####[facility] Npquqvyhko[address] [place], [place] [address]Dr. Tadeo Smyth Hemoglobin Ql (U) SMALL Abnormal NEGATIVE [facility] Comment on above: Performed By: #### KAROL MERCHANT ####[facility] Jqjdwbdwkr[address] [place], [place] [address]Dr. Tadeo Smyth Ketones Ql (U) Negative Normal NEGATIVE [facility] Comment on above: Performed By: #### Matthew FRANCISCO UMICRO ####[facility] [address]ot[address] [place] [address]Dr. Tadeo Smyth LEUKOCYTES Negative Normal NEGATIVE [facility] Comment on above: Performed By: #### Matthew FRANCISCO UMICRO ####[facility] Oulvpmqctu[address] [place] [address]Dr. Tadeo Smyth Nitrite Ql (U) Negative Normal NEGATIVE [facility] Comment on above: Performed By: #### Matthew FRANCISCO UMICRO ####[facility] Jftcgomwcb2286 [place] [address]Dr. Tadeo Smyth pH (U) 5.5 [pH] Normal 5-9 [facility] Comment on above: Performed By: #### Matthew FRANCISCO UMICRO ####[facility] Znnejpikrh[address] [place], [place] [address]Dr. Tadeo Smyth SPEC GRAVITY >=1.030 Abnormal 1.005-<=1.[address] [place] [address] Comment on above: Performed By: #### Matthew FRANCISCO UMICRO ####[facility] Sizzwbeqxp35[address] [place], [place] [address]Dr. Tadeo Smyth UA PROTEIN TRACE Normal NEGATIVE/ TRACE [facility] Comment on above: Performed By: #### Matthew FRANCISCO UMICRO ####[facility] Woyjrfhglp[address] [place], [place] [address]Dr. Tadeo Smyth UR MICRO IND INDICATED Normal [facility] Comment on above: Performed By: #### Matthew FRANCISCO UMICRO ####[facility] Vaguutfhmj[address] [place], [place] [address]Dr. Tadeo Smyth Urobilinogen Qn (U) 0.2 {Benito'U}/dL Normal 0.2 - 1. 0 [facility] Comment on above: Performed By: #### Matthew FRANCISCO UMICRO ####[facility] Rskyohvdjd6867[address] [place], [place] [address]Dr. Tadeo Smyth LACTATE/LACTIC ACIDon 2022 Lactate [Moles/Vol] 1.1 mmol/L Normal 0.4-1.9 [facility] Comment on above: Performed By: #### L ACT ####[facility] Lpiziltllt6[address] [place] [address]Dr. Tadeo Smyth LIPASEon 09-18-2022 Lipase [Catalytic activity/Vol] 75.0 U/L Normal 73.0-393.0 [facility] Comment on above: Performed By: #### L IPA, CMP, VIJI ####[facility] Ybbqqqthdl[address] [place], [place] [address]Dr. Tadeo Smyth PROF 14(COMP METB)on 023 Albumin [Mass/Vol] 3.4 g/dL Normal 3.4-5.0 [facility] Comment on above: Performed By: #### L IPA, CMP, VIJI ####[facility] Tcbavssktj0734[address] [place], [place] [address]Dr. Tadeo Smyth Albumin/Globulin [Mass ratio] 0.9 {ratio} Normal [facility] Comment on above: Performed By: #### L IPA, CMP, VIJI ####[facility] Cyvzeqmjzr525[address] [place], [place] [address]Dr. Tadeo Smyth ALP [Catalytic activity/Vol] 164 U/L Critically high 46-116 [facility] Comment on above: Performed By: #### L IPA, CMP, VIJI ####[facility] Qwfqchkcpu3398 [place] [address]Dr. Tadeo Smyth ALT [Catalytic activity/Vol] 29 U/L Normal 14-59 [facility] Comment on above: Performed By: #### L IPA, CMP, VIJI ####[facility] Fszvvybemm5094 [place] [address]Dr. Tadeo Smyth Anion gap [Moles/Vol] 12.3 mmol/L Normal [facility] Comment on above: Performed By: #### L IPA, CMP, VIJI ####[facility] Upyrnykaea47[address] [place], [place] [address]Dr. Tadeo Smyth AST [Catalytic activity/Vol] 30 U/L Normal 15-37 [facility] Comment on above: Performed By: #### L IPA, CMP, VIJI ####[facility] Utnqltwgqv4516 [place] [address]Dr. Tadeo Smyth Bilirubin [Mass/Vol] 0.3 mg/dL Normal 0.2-1.0 [facility] Comment on above: Performed By: #### L IPA, CMP, VIJI ####[facility] Gnatkmmvgr6019 [place] [address]Dr. Tadeo Smyth Calcium [Mass/Vol] 8.9 mg/dL Normal 8.5-10.1 [facility] Comment on above: Performed By: #### L IPA, CMP, VIJI ####[facility] Earqfbcqbt604[address] [place], [place] [address]Dr. Tadeo Smyth Chloride [Moles/Vol] 103 mmol/L Normal 98-107 [facility] Comment on above: Performed By: #### L IPA, CMP, VIJI ####[facility] Djblyadzpq[address] [place], [place] [address]Dr. Tadeo Smyth CO2 [Moles/Vol] 27.8 mmol/L Normal 21.0-32.0 [facility] Comment on above: Performed By: #### L IPA, CMP, VIJI ####[facility] Mfimhjbukm[address] [place], [place] [address]Dr. Tadeo Smyth Creatinine [Mass/Vol] 0.89 mg/dL Normal 0.55-1.02 [facility] Comment on above: Performed By: #### L IPA, CMP, VIJI ####[facility] Cbqafunqpc[address] [place], [place] [address]Dr. Tadeo Smyth EGFR-AF [place]LANDER >60 Normal >=60 [facility] Comment on above: Performed By: #### L IPA, CMP, VIJI ####[facility] Csanbfpszf[address] [place], [place] [address]Dr. Tadeo Smyth EGFR-NON AF [place]ER >60 Normal >=60 [facility] Comment on above: Performed By: #### L IPA, CMP, VIJI ####[facility] Hxhtthbyri[address] [place], [place] [address]Dr. Tdaeo Smyth Globulin (S) [Mass/Vol] 3.9 g/dL Normal [facility] Comment on above: Performed By: #### L IPA, CMP, VIJI ####[facility] Jwsapkicfu2520 [place] [address]Dr. Tadeo Smyth Glucose [Mass/Vol] 96 mg/dL Normal 74-106 [facility] Comment on above: Performed By: #### L IPA, CMP, VIJI ####[facility] Ycuqphvfru6122 [place] [address]Dr. Tadeo Smyth Potassium [Moles/Vol] 4.1 mmol/L Normal 3.5-5.1 [facility] Comment on above: Performed By: #### L IPA, CMP, VIJI ####[facility] Ybgczqpnit4483 [place] [address]Dr. Tadeo Smyth Protein [Mass/Vol] 7.3 g/dL Normal 6.4-8.2 [facility] Comment on above: Performed By: #### L IPA, CMP, VIJI ####[facility] Ajgtaeokhd[address] [place], [place] [address]Dr. Tadeo Smyth Sodium [Moles/Vol] 139 mmol/L Normal 136-145 [facility] Comment on above: Performed By: #### L IPA, CMP, VIJI ####[facility] Dtuinnvjnq[address] [place], [place] [address]Dr. Tadeo Smyth Urea nitrogen [Mass/Vol] 19.0 mg/dL Critically high 7.0-18.0 [facility] Comment on above: Performed By: #### L IPA, CMP, VIJI ####[facility] Xhzjzqubdh6622 [place] [address]Dr. Tadeo Smyth Urea nitrogen/Creatinine [Mass ratio] 21.3 mg/mg Normal [facility] Comment on above: Performed By: #### L IPA, CMP, VIJI ####[facility] Kfuvxqofbs8172 [place] [address]Dr. Tadeo Smyth URINE MICROSCOPIC ONLYon BACTERIA TRACE Abnormal NONE SEEN [facility] Comment on above: Performed By: #### E KAROL FRANCISCO ####[facility] Couyblzogg[address] [place] [address]Dr. Tadeo Smyth Bacteria identified Cx Nom (U) NOT INDICATED Normal [facility] Comment on above: Performed By: #### SANDRO MERCHANTRO ####[facility] Hhgtbkzqbu[address] [place], [place] [address]Dr. Tadeo Smyth CAST NONE SEEN Normal NONE SEEN [facility] Comment on above: Performed By: #### RANDI MERCHANTICRO ####[facility] Vhdxwnoslk[address] [place], [place] [address]Dr. Tadeo Smyth Crystals LM Nom (Urine sed) SEEN Abnormal NONE SEEN [facility] Comment on above: Performed By: #### RANDI MERCHANTICRO ####[facility] Ctldlsakgp265[address] [place], [place] [address]Dr. Tadeo Smyth Epithelial cells LM Ql (Urine sed) RARE Normal NONE SEEN /RARE [facility] Comment on above: Performed By: #### RANDI MERCHANTICRO ####[facility] Iwzrdgjxzb[address] [place], [place] [address]Dr. Tadeo Smyth MUCOUS TRACE Abnormal NONE SEEN [facility] Comment on above: Performed By: #### Matthew FRANCISCO ICRO ####[facility] Ulzilpmuhp[address] [place], [place] [address]Dr. Tadeo Smyth RBC 0-2 Normal 0-2 [facility] Comment on above: Performed By: #### Matthew FRANCISCO UMICRO ####[facility] Epjlczqayv5[address] [place], [place] [address]Dr. Tadeo Smyth WBC 0-2 Abnormal NONE SEEN [facility] Comment on above: Performed By: #### Matthew FRANCISCO UMICRO ####[facility] Mryhlotwdg20[address] [place], [place] [address]Dr. Tadeo Smyth CBC AUTO DIFFon 09-14-2022 BASO # 0.0 103/ul Normal 0.0-0.1 [facility] Comment on above: Performed By: #### C BC ####[facility] Iixcizwnoe[address] [place], [place] [address]Dr. Tadeo Smyth Basophils/100 WBC (Bld) 0.3 % Normal 0.2-2.0 [facility] Comment on above: Performed By: #### C BC ####[facility] Jnemuqjehv6151 [place] [address]Dr. Tadeo Smyth EO # 0.2 103/ul Normal 0.0-0.7 [facility] Comment on above: Performed By: #### C BC ####[facility] Tkgzosxvmf0264 [place] [address]Dr. Tadeo Smyth Eosinophils/100 WBC (Bld) 1.1 % Normal 0.9-7.0 [facility] Comment on above: Performed By: #### C BC ####[facility] Uvpdjeojgo[address] [place], [place] [address]Dr. Tadeo Smyth Erythrocyte distribution width (RBC) [Ratio] 13.7 % Normal 11.0-15.0 [facility] Comment on above: Performed By: #### C BC ####[facility] Xkqjpdakkb[address] [place], [place] [address]Dr. Tadeo Smyth Hematocrit (Bld) [Volume fraction] 41.3 % Normal 36.0-48.0 [facility] Comment on above: Performed By: #### C BC ####[facility] Rtnohqwuul[address] [place], [place] [address]Dr. Tadeo Smyth Hemoglobin (Bld) [Mass/Vol] 13.6 g/dL Normal 12.0-16.0 [facility] Comment on above: Performed By: #### C BC ####[facility] Hgwqibghps[address] [place], [place] [address]Dr. Tadeo Smyth IG # 0.05 10e3/ul Critically high 0.00-0.03 [facility] Comment on above: Performed By: #### C BC ####[facility] Vmjtjgnfps[address] [place], [place] [address]Dr. Tadeo Smyth IG % 0.4 % Normal 0.0-0.5 [facility] Comment on above: Performed By: #### C BC ####[facility] Aqbqlmbrzz[address] [place], [place] [address]DrNeo Margotnicole Smyth LYMPH # 2.2 103/ul Normal 1.2-3.8 [facility] Comment on above: Performed By: #### C BC ####[facility] Ibayfyqion5439 [place] [address]Dr. Margotnicole Smyth Lymphocytes/100 WBC (Bld) 16.3 % Critically low 20.5-60.0 [facility] Comment on above: Performed By: #### C BC ####[facility] Xqizylqumo2790 [place] [address]DrNeo Smyth MANUAL DIFF REQ NO Normal [facility] Comment on above: Performed By: #### C BC ####[facility] Vhphezozhq8036 [place] [id number]. Tadeo Smyth MCH (RBC) [Entitic mass] 28.9 pg Normal 26.7-34.0 [facility] Comment on above: Performed By: #### C BC ####[facility] Vdqifsxmpz[address] [place], [place] [address]Dr. Tadeo Smyth MCHC (RBC) [Mass/Vol] 32.9 g/dL Normal 29.9-35.2 [facility] Comment on above: Performed By: #### C BC ####[facility] Vpukuhbnsg[address] [place], [place] [address]DrNeo Smyth MCV (RBC) [Entitic vol] 87.9 fL Normal 81.0-99.0 [facility] Comment on above: Performed By: #### C BC ####[facility] Qwgkdkkhii[address] [place], [place] [address]DrNeo Smyth MONO # 0.7 103/ul Normal 0.3-0.8 [facility] Comment on above: Performed By: #### C BC ####[facility] G[address] [place], [place] [address]DrNeo Smyth Monocytes/100 WBC (Bld) 5.1 % Normal 1.7-12.0 [facility] Comment on above: Performed By: #### C BC ####[facility] G[address]jdlssap[address] [place], [place] [address]DrNeo Smyth NEUT # 10.3 103/ul Critically high 1.4-6.5 [facility] Comment on above: Performed By: #### C BC ####[facility] Utxxjkfvlb7836 [place] [address]Dr. Tadeo Smyth Neutrophils/100 WBC (Bld) 76.8 % Critically high 43.0-75.0 [facility] Comment on above: Performed By: #### C BC ####[facility] Rqvmximjzc0745 [place] [address]Dr. Tadeo Smyth Platelet mean volume (Bld) [Entitic vol] 8.8 fL Critically low 9.5-13.5 [facility] Comment on above: Performed By: #### C BC ####[facility] Hkotphdqkg9124 [place] [address]Dr. Tadeo Haja PLT 438 103/ul Normal 150-450 [facility] Comment on above: Performed By: #### C BC ####[facility] Hwouaarbpu[address] [place], [place] [address]Dr. Tadeo Smyth RBC 4.70 106/ul Normal 4.20-5.40 [facility] Comment on above: Performed By: #### C BC ####[facility] Kscrqfxygy[address] [place], [place] [address]Dr. Tadeo Smyth WBC 13.4 103/ul Critically high 4.0-11.0 [facility] Comment on above: Performed By: #### C BC ####[facility] Behtycjzfk[address] [place], [place] [address]Dr. Tadeo Haja ER URINE PROFILEon 3 Bilirubin Ql (U) Negative Normal NEGATIVE [facility] Comment on above: Performed By: #### SANDRO MERCHANTRO ####[facility] Ejnomdnxie34[address] [place] [address]Dr. Tadeo Smyth Clarity (U) CLEAR Normal CLEAR [facility] Comment on above: Performed By: #### SANDRO MERCHANTRO ####[facility] Abjeimifgc[address] [place] [id number]. Tadeo Smyth Color (U) LT. YELLOW Normal YELLOW [facility] Comment on above: Performed By: #### KAROL MERCHANT ####[facility] Uknwhtnwyn6802 [place] [address]Dr. Tadeo ENG A micrscopic examina tion will be performed if indicated. Normal [facility] Comment on above: Performed By: #### KAROL MERCHANT ####[facility] Vckidtjkwk0791 [place] [address]Dr. Tadeo Smyth Glucose Ql (U) Negative Normal NEGATIVE [facility] Comment on above: Performed By: #### KAROL MERCHANT ####[facility] Onsfozyvwa[address] [place], [place] [address]Dr. Tadeo Smyth Hemoglobin Ql (U) TRACE-INTACT Abnormal NEGATIVE [facility] Comment on above: Performed By: #### KAROL MERCHANT ####[facility] Qybjkcsqap[address] [place], [place] [address]Dr. Tadeo mSyth Ketones Ql (U) Negative Normal NEGATIVE [facility] Comment on above: Performed By: #### KAROL MERCHANT ####[facility] Huunsjkdkz[address] [place], [place] [address]Dr. Tadeo Smyth LEUKOCYTES Negative Normal NEGATIVE The [facility] Comment on above: Performed By: #### KAROL MERCHANT ####[facility] Grydlcdwhh[address] [place], [place] [address]Dr. Tadeo Smyth Nitrite Ql (U) Negative Normal NEGATIVE [facility] Comment on above: Performed By: #### KAROL MERCHANT ####[facility] Rfqmsxnura[address] [place], [place] [address]Dr. Tadeo Smyth pH (U) 6.5 [pH] Normal 5-9 [facility] Comment on above: Performed By: #### KAROL MERCHANT ####[facility] Qjmdrpueor[address] [place], [place] [address]Dr. Tadeo Smyth SPEC GRAVITY 1.020 Normal 1.005-<=1.0 25 [facility] Comment on above: Performed By: #### KAROL MERCHANT ####[facility] [address]ucvwjojut[address] [place], [place] [address]Dr. Tadeo Smyth UA PROTEIN Negative Normal NEGATIVE/ TRACE [facility] Comment on above: Performed By: #### KAROL MERCHANT ####[facility] Kuogjovcbd4150 [place] [address]Dr. Tadeo Smyth UR MICRO IND INDICATED Normal [facility] Comment on above: Performed By: #### KAROL MERCHANT ####[facility] Xhtafcfsin4299 [place] [address]Dr. Tadeo Smyth Urobilinogen Qn (U) 0.2 {Benito'U}/dL Normal 0.2 - 1. 0 [facility] Comment on above: Performed By: #### KAROL MERCHANT ####[facility] Nluwqpfyuq2068 [place] [address]Dr. Tdaeo Smyth LIPASEon 09-14-2022 Lipase [Catalytic activity/Vol] 117.0 U/L Normal 73.0-393.0 [facility] Comment on above: Performed By: #### H STROPN, CMP, LIPA ####[facility] Jmjyjglvid0220 [place] [address]Dr. Tadeo Smyth PROF 14(COMP METB)on 023 Albumin [Mass/Vol] 3.5 g/dL Normal 3.4-5.0 [facility] Comment on above: Performed By: #### H STROPN, CMP, LIPA ####[facility] Yhvsjowtcf3639 [place] [address]Dr. Tadeo Smyth Albumin/Globulin [Mass ratio] 0.8 {ratio} Normal [facility] Comment on above: Performed By: #### H STROPN, CMP, LIPA ####[facility] Oydbgbmawo[address] [place] [address]Dr. Tadeo Smyth ALP [Catalytic activity/Vol] 180 U/L Critically high 46-116 [facility] Comment on above: Performed By: #### H STROPN, CMP, LIPA ####[facility] Yjjiubbpat6057 [place] [address]Dr. Tadeo Smyth ALT [Catalytic activity/Vol] 25 U/L Normal 14-59 [facility] Comment on above: Performed By: #### H STROPN, CMP, LIPA ####[facility] Yaczgiedcp6962 [place] [address]Dr. Tadeo Smyth Anion gap [Moles/Vol] 14.4 mmol/L Normal Th e [facility] Comment on above: Performed By: #### H STROPN, CMP, LIPA ####[facility] Hygleklyqs8972 [place] [address]Dr. Tadeo Smyth AST [Catalytic activity/Vol] 14 U/L Critically low 15-37 [facility] Comment on above: Performed By: #### H STROPN, CMP, LIPA ####[facility] Eripeargkw[address]136 [place] [address]Dr. Tadeo Smyth Bilirubin [Mass/Vol] 0.2 mg/dL Normal 0.2-1.0 [facility] Comment on above: Performed By: #### H STROPN, CMP, LIPA ####[facility] Xzoqmvenfp[address] [place], [place] [address]Dr. Tadeo Smyth Calcium [Mass/Vol] 9.4 mg/dL Normal 8.5-10.1 [facility] Comment on above: Performed By: #### H STROPN, CMP, LIPA ####[facility] Zqlvwsotpf9052 [place] [address]Dr. Tadeo Smyth Chloride [Moles/Vol] 107 mmol/L Normal 98-107 [facility] Comment on above: Performed By: #### H STROPN, CMP, LIPA ####[facility] Sgvhmgbivf0156 [place] [address]Dr. Tadeo Smyth CO2 [Moles/Vol] 23.9 mmol/L Normal 21.0-32.0 [facility] Comment on above: Performed By: #### H STROPN, CMP, LIPA ####[facility] Hdbehuczrg4797 [place] [address]Dr. Tadeo Smyth Creatinine [Mass/Vol] 0.91 mg/dL Normal 0.55-1.02 [facility] Comment on above: Performed By: #### H STROPN, CMP, LIPA ####[facility] [address]uc[address] [place] [id number]. Tadeo Smyth EGFR-AF [place]LANDER >60 Normal >=60 [facility] Comment on above: Performed By: #### H STROPN, CMP, LIPA ####[facility] Qzvmpiwlzm8001 [place] [address]Dr. Tadeo Smyth EGFR-NON AF [place] ISLANDER >60 Normal >=60 [facility] Comment on above: Performed By: #### H STROPN, CMP, LIPA ####[facility] Llqfynijaz9625 [place] [address]Dr. Tadeo Smyth Globulin (S) [Mass/Vol] 4.2 g/dL Normal [facility] Comment on above: Performed By: #### H STROPN, CMP, LIPA ####[facility] Cktuhhusyu1806 [place] [address]Dr. Tadeo Smyth Glucose [Mass/Vol] 101 mg/dL Normal 74-106 [facility] Comment on above: Performed By: #### H STROPN, CMP, LIPA ####[facility] Kaiprwvbmq37[address] [place] [address]Dr. Tadeo Smyth Potassium [Moles/Vol] 3.3 mmol/L Critically low 3.5-5.1 [facility] Comment on above: Performed By: #### H STROPN, CMP, LIPA ####[facility] Snefjpuplc55[address] [place] [address]Dr. Tadeo Smyth Protein [Mass/Vol] 7.7 g/dL Normal 6.4-8.2 [facility] Comment on above: Performed By: #### H STROPN, CMP, LIPA ####[facility] Zcdlzcvlfi9904 [place] [address]Dr. Tadeo Smyth Sodium [Moles/Vol] 142 mmol/L Normal 136-145 [facility] Comment on above: Performed By: #### H STROPN, CMP, LIPA ####[facility] Qbodefbmul5481 [place] [address]Dr. Tadeo Smyth Urea nitrogen [Mass/Vol] 17.0 mg/dL Normal 7.0-18.0 [facility] Comment on above: Performed By: #### H DIANN FIGUEROA, LIPA ####[facility] Ttsvjuzbzc9083 [place] [address]Dr. Tadeo Smyth Urea nitrogen/Creatinine [Mass ratio] 18.7 mg/mg Normal [facility] Comment on above: Performed By: #### H HENRY CMP, LIPA ####[facility] Autmayybyf[address] [place] [address]Dr. Tadeo Smyth TROPONIN, HIGH SENSITIVITYon 09-14-2022 HSTROP 46.6 pg/mL Normal 4.0-51.3 [facility] Comment on above: Result Comment: CUT- OFF POINTS HAVE BEEN ESTABLISHED BASED ON THE FOURTH UNIVERSAL DEFINITIONS OF MYOCARDIALINFARCTION. THE UPPER REFERENCE LIMIT (URL) OF TROPONIN, DEFINED THE 99TH PERCENTILE OFcTnI DISTRIBUTION IN A REFERENCE POPULATION, HAS BEEN CONFIRMED THE DECISION [place]RES[place]FOR [place] DIAGNOSIS. Performed By: #### H DIANN FIGUEROA, LIPA ####[facility] [address] [place] [address]Dr. Tadeo Smyth URINE MICROSCOPIC ONLYon BACTERIA NONE SEEN Normal NONE SEEN The [facility] Comment on above: Performed By: #### KAROL MERCHANT ####[facility] [address] [place] [address]Dr. Tadeo Smyth Bacteria identified Cx Nom (U) NOT INDICATED Normal [facility] Comment on above: Performed By: #### KAROL MERCHANT ####[facility] [address]im[address] [place] [address]Dr. Tadeo Smyth CAST NONE SEEN Normal NONE SEEN [facility] Comment on above: Performed By: #### SANDRO MERCHANTRO ####[facility] [address] [place] [address]Dr. Tadeo Smyth Crystals LM Nom (Urine sed) NONE SEEN Normal NONE SEEN [facility] Comment on above: Performed By: #### SANDRO MERCHANTRO ####[facility] [address] [place] [address]Dr. Tadeo Smyth Epithelial cells LM Ql (Urine sed) FEW Abnormal NONE SEEN /RARE [facility] Comment on above: Performed By: #### E SANDRO FRANCISCORO ####[facility] [address] [place] [address]Dr. Tadeo Smyth MUCOUS MODERATE Abnormal NONE SEEN The [facility] Comment on above: Performed By: #### E RANDI FRANCISCOICRO ####[facility] [address] [place] [id number]. Tadeo Smyth RBC 0-2 Normal 0-2 [facility] Comment on above: Performed By: #### E SANDRO FRANCISCORO ####[facility] [address]dbpmxd[address]kw[address] [place] [address]Dr. Tadeo Smyth WBC NONE SEEN Normal NONE SEEN [facility] Comment on above: Performed By: #### SANDRO MERCHANTRO ####[facility] Puftb[address] [place] [address]Dr. Tadeo Smyth XR ABD FLAT UP_PA Kasey 09-14 XR ABD FLAT UP_PA CH Normal [facility] VC COMP CONSULTATIONon 09-06 VC COMP CONSULTATION Normal [facility] VC VENOUS REFLUX MACARIO LMTon 0 09-06-2022 VC VENOUS REFLUX MACARIO LMT Normal [facility] XR KUB 1 VIEWon 08-18-2022 XR KUB 1 VIEW Normal [facility] US RUBENS DOP LEG RTon 08-11-20 US RUBENS DOP LEG RT Normal [facility] Provider Letteron 08-10-2022 Provider Letter (Inserted Image. Kristin ble to display) August 10, 2022 CONSTANTINO CARDOSO [address] [place] [address] CONSTANTINO CARDOSO 1970 Dear Constantino, We have been trying to reach you with no success. It is important that you return our call regarding your referral. Thank you for your prompt attention to this matter. Sincerely, [facility] Normal [facility] AMYLASEon 08-08-2022 Amylase [Catalytic activity/Vol] 64 U/L Normal 25-115 [facility] Comment on above: Performed By: #### C MP, VIJI, LIPA, CMADM ####[facility] [address] [place] [id number]. Margotnicole Haja CARDIAC NORA ADMITon 022 CK [Catalytic activity/Vol] 127 U/L Normal 26-192 [facility] Comment on above: Performed By: #### C MP, VIJI, LIPA, CMADM ####[facility] R[address]cp[address] [place] [address]Dr. Tadeo Smyth CK.MB [Mass/Vol] 1.71 ng/mL Normal <=3.60 [facility] Comment on above: Performed By: #### C MP, VIJI, LIPA, CMADM ####[facility] [address]cyx[address] [place] [address]Dr. Tadeo Smyth HSTROP 36.7 pg/mL Normal 4.0-51.3 [facility] Comment on above: Result Comment: CUT- OFF POINTS HAVE BEEN ESTABLISHED BASED ON THE FOURTH UNIVERSAL DEFINITIONS OF MYOCARDIALINFARCTION. THE UPPER REFERENCE LIMIT (URL) OF TROPONIN, DEFINED THE 99TH PERCENTILE OFcTnI DISTRIBUTION IN A REFERENCE POPULATION, HAS BEEN CONFIRMED THE DECISION [place]OLDFOR [place] DIAGNOSIS. Performed By: #### C MP, VIJI, LIPA, CMADM ####[facility] [address] [place] [address]Dr. Tadeo Smyth AAKASH 23 ng/mL Normal 9-82 [facility] Comment on above: Performed By: #### C MP, VIJI, LIPA, CMADM ####[facility] [address]wwj[address] [place] [address]Dr. Tadeo Smyth CBC AUTO DIFFon 08-08-2022 BASO # 0.0 103/ul Normal 0.0-0.1 [facility] Comment on above: Performed By: #### C BC ####[facility] [address]azdgc[address] [place] [address]Dr. Tadeo Smyth Basophils/100 WBC (Bld) 0.4 % Normal 0.2-2.0 [facility] Comment on above: Performed By: #### C BC ####[facility] Unajazmhgn[address] [place] [address]Dr. Tadeo Smyth EO # 0.1 103/ul Normal 0.0-0.7 [facility] Comment on above: Performed By: #### C BC ####[facility] Anljexonhq[address] [place], [place] [address]Dr. Margotnicole Smyth Eosinophils/100 WBC (Bld) 1.5 % Normal 0.9-7.0 [facility] Comment on above: Performed By: #### C BC ####[facility] Xvzuf[address]idb[address] [place], [place] [address]Dr. Tadeo Smyth Erythrocyte distribution width (RBC) [Ratio] 13.5 % Normal 11.0-15.0 [facility] Comment on above: Performed By: #### C BC ####[facility] Vouoglfueq[address] [place], [place] [address]Dr. Tadeo Smyth Hematocrit (Bld) [Volume fraction] 37.0 % Normal 36.0-48.0 [facility] Comment on above: Performed By: #### C BC ####[facility] Cquecltlvp[address] [place], [place] [address]Dr. Margotnicole Smyth Hemoglobin (Bld) [Mass/Vol] 12.0 g/dL Normal 12.0-16.0 [facility] Comment on above: Performed By: #### C BC ####[facility] Mixlnfawxb[address] [place], [place] [address]Dr. Tadeo Smyth IG # 0.02 10e3/ul Normal 0.00-0.03 [facility] Comment on above: Performed By: #### C BC ####[facility] Uzhuihwvhl[address] [place], [place] [address]Dr. Tadeo Smyth IG % 0.3 % Normal 0.0-0.5 [facility] Comment on above: Performed By: #### C BC ####[facility] Ilawzbhvua[address] [place], [place] [address]DrNeo Smyth LYMPH # 2.0 103/ul Normal 1.2-3.8 [facility] Comment on above: Performed By: #### C BC ####[facility] Ibbbyylhnm[address] [place], [place] [address]Dr. Tadeo Smyth Lymphocytes/100 WBC (Bld) 27.9 % Normal 20.5-60.0 [facility] Comment on above: Performed By: #### C BC ####[facility] Qtmpjwnvtu[address] [place] [address]DrNeo Smyth MANUAL DIFF REQ NO Normal [facility] Comment on above: Performed By: #### C BC ####[facility] [address]bsndvhdn[address] [place] [address]Dr. Tadeo Smyth MCH (RBC) [Entitic mass] 28.9 pg Normal 26.7-34.0 [facility] Comment on above: Performed By: #### C BC ####[facility] Kpeyrmakjz[address] [place], [place] [address]DrNeo Smyth MCHC (RBC) [Mass/Vol] 32.4 g/dL Normal 29.9-35.2 [facility] Comment on above: Performed By: #### C BC ####[facility] L[address]cgjllsk[address] [place], [place] [address]DrNeo Smyth MCV (RBC) [Entitic vol] 89.2 fL Normal 81.0-99.0 [facility] Comment on above: Performed By: #### C BC ####[facility] Qctw[address]cwqd[address] [place], [place] [address]DrNeo Smyth MONO # 0.5 103/ul Normal 0.3-0.8 [facility] Comment on above: Performed By: #### C BC ####[facility] Tvfhfjdozp[address] [place], [place] [address]DrNeo Smyth Monocytes/100 WBC (Bld) 6.7 % Normal 1.7-12.0 [facility] Comment on above: Performed By: #### C BC ####[facility] Lnhtoutaqo[address] [place], [place] [address]DrNeo Smyth NEUT # 4.5 103/ul Normal 1.4-6.5 [facility] Comment on above: Performed By: #### C BC ####[facility] Bhhbxpuwtz[address] [place], [place] [address]DrNeo Smyth Neutrophils/100 WBC (Bld) 63.2 % Normal 43.0-75.0 [facility] Comment on above: Performed By: #### C BC ####[facility] Repsnemnfc[address] [place], [place] [address]Dr. Tadeo Smyth Platelet mean volume (Bld) [Entitic vol] 9.0 fL Critically low 9.5-13.5 [facility] Comment on above: Performed By: #### C BC ####[facility] Slxjgwpvhw[address] [place], [place] [address]Dr. Tadeo Smyth PLT 382 103/ul Normal 150-450 [facility] Comment on above: Performed By: #### C BC ####[facility] Uebaymmhjz[address] [place], [place] [address]Dr. Tadeo Smyth RBC 4.15 106/ul Critically low 4.20-5.40 [facility] Comment on above: Performed By: #### C BC ####[facility] Contjodhts[address] [place], [place] [address]Dr. Tadeo Haja WBC 7.1 103/ul Normal 4.0-11.0 [facility] Comment on above: Performed By: #### C BC ####[facility] Nypkaxweoa[address] [place], [place] [address]Dr. Tadeo Smyth CT ABD/PELV W CONon 08-08-[address] ABD/PELV W CON Normal [facility] ER URINE PROFILEon 2 Bilirubin Ql (U) Negative Normal NEGATIVE [facility] Comment on above: Performed By: #### KAROL MERCHANT ####[facility] [address] [place], [place] [address]Dr. Margotnicole Smyth Clarity (U) CLEAR Normal CLEAR [facility] Comment on above: Performed By: #### KAROL MERCHANT ####[facility] Iticzddtmt[address] [place], [place] [address]Dr. Tadeo Smyth Color (U) YELLOW Normal YELLOW [facility] Comment on above: Performed By: #### KAROL MERCHANT ####[facility] Insdsxnguw[address] [place], [place] [id number]. Tadeo ENG A micrscopic examina tion will be performed if indicated. Normal [facility] Comment on above: Performed By: #### KAROL MERCHANT ####[facility] Wdszioilem[address] [place], [place] [address]Dr. Tadeo Smyth Glucose Ql (U) Negative Normal NEGATIVE [facility] Comment on above: Performed By: #### KAROL MERCHANT ####[facility] Swstyfskta[address] [place], [place] [address]Dr. Tadeo Smyth Hemoglobin Ql (U) TRACE-LYSED Abnormal NEGATIVE The [facility] Comment on above: Performed By: #### KAROL MERCHANT ####[facility] Wleruzrrqt[address] [place], [place] [address]Dr. Tadeo Smyth Ketones Ql (U) TRACE Abnormal NEGATIVE [facility] Comment on above: Performed By: #### KAROL MERCHANT ####[facility] Fbkjkghcem[address] [place], [place] [address]Dr. Tadeo Smyth LEUKOCYTES Negative Normal NEGATIVE The [facility] Comment on above: Performed By: #### KAROL MERCHANT ####[facility] Rjotadddjn[address] [place], [place] [address]Dr. Tadeo Smyth Nitrite Ql (U) Negative Normal NEGATIVE The [facility] Comment on above: Performed By: #### KAROL MERCHANT ####[facility] Ryzfbcxxzs[address] [place], [place] [address]Dr. Tadeo Smyth pH (U) 6.0 [pH] Normal 5-9 [facility] Comment on above: Performed By: #### SANDRO MERCHANTRO ####[facility] Oqnwqndrgb[address] [place], [place] [address]Dr. Tadeo Smyth SPEC GRAVITY >=1.030 Abnormal 1.005-<=1.0 25 [facility] Comment on above: Performed By: #### KAROL MERCHANT ####[facility] Cltlojyuot[address] [place], [place] [address]Dr. Tadeo Smyth UA PROTEIN TRACE Normal NEGATIVE/ TRACE The [facility] Comment on above: Performed By: #### RANDI MERCHANTICRO ####[facility] [address] [place] [address]Dr. Tadeo Smyth UR MICRO IND INDICATED Normal [facility] Comment on above: Performed By: #### RANDI MERCHANTICRO ####[facility] Cm[address]qujadd[address] [place] [address]Dr. Tadeo Smyth Urobilinogen Qn (U) 0.2 {Benito'U}/dL Normal 0.2 - 1. 0 [facility] Comment on above: Performed By: #### SANDRO MERCHANTRO ####[facility] [address]ipq[address] [place] [address]Dr. Tadeo Smyth LACTATE/LACTIC ACIDon 2021 Lactate [Moles/Vol] 1.3 mmol/L Normal 0.4-1.9 [facility] Comment on above: Performed By: #### L ACT ####[facility] Feiwzussoy[address] [place], [place] [address]Dr. Tadeo Smyth LIPASEon 08-08-2022 Lipase [Catalytic activity/Vol] 120.0 U/L Normal 73.0-393.0 [facility] Comment on above: Performed By: #### C MP, VIJI, LIPA, CMADM ####[facility] [address]fwcgbkqy[address] [place] [address]Dr. Tadeo Smyth PROF 14(COMP METB)on 022 Albumin [Mass/Vol] 3.8 g/dL Normal 3.4-5.0 [facility] Comment on above: Performed By: #### C MP, VIJI, LIPA, CMADM ####[facility] Bdzyylxsnm[address] [place] [address]Dr. Tadeo Smyth Albumin/Globulin [Mass ratio] 1.1 {ratio} Normal [facility] Comment on above: Performed By: #### C MP, VIJI, LIPA, CMADM ####[facility] [address]fxd[address]lyjwd[address] [place] [address]Dr. Tadeo Smyth ALP [Catalytic activity/Vol] 145 U/L Critically high 46-116 [facility] Comment on above: Performed By: #### C MP, VIJI, LIPA, CMADM ####[facility] R[address]piepjylj[address] [place] [address]Dr. Tadeo Smyth ALT [Catalytic activity/Vol] 30 U/L Normal 14-59 [facility] Comment on above: Performed By: #### C MP, VIJI, LIPA, CMADM ####[facility] Ze[address]ieljye[address] [place] [address]Dr. Tadeo Smyth Anion gap [Moles/Vol] 11.5 mmol/L Normal Th e [facility] Comment on above: Performed By: #### C MP, VIJI, LIPA, CMADM ####[facility] Vvkglawxzp[address] [place], [place] [address]Dr. Tadeo Smyth AST [Catalytic activity/Vol] 17 U/L Normal 15-37 [facility] Comment on above: Performed By: #### C MP, VIJI, LIPA, CMADM ####[facility] Sw[address]orczsk[address] [place] [address]Dr. Tadeo Smyth Bilirubin [Mass/Vol] 0.1 mg/dL Critically low 0.2-1.0 [facility] Comment on above: Performed By: #### C MP, VIJI, LIPA, CMADM ####[facility] G[address]qmjtplp[address] [place] [address]Dr. Tadeo Smyth Calcium [Mass/Vol] 8.9 mg/dL Normal 8.5-10.1 [facility] Comment on above: Performed By: #### C MP, VIJI, LIPA, CMADM ####[facility] [address]awerggk[address] [place] [address]Dr. Tadeo Smyth Chloride [Moles/Vol] 104 mmol/L Normal 98-107 [facility] Comment on above: Performed By: #### C MP, VIJI, LIPA, CMADM ####[facility] [address]gbgjbjo[address] [place] [address]Dr. Tadeo Smyth CO2 [Moles/Vol] 27.2 mmol/L Normal 21.0-32.0 [facility] Comment on above: Performed By: #### C MP, VIJI, LIPA, CMADM ####[facility] Mgrftmgbsa[address] [place] [address]Dr. Tadeo Smyth Creatinine [Mass/Vol] 0.90 mg/dL Normal 0.55-1.02 [facility] Comment on above: Performed By: #### C MP, VIJI, LIPA, CMADM ####[facility] Vtw[address]vurwq[address] [place] [address]Dr. Tadeo Smyth EGFR-AF [place]ER >60 Normal >=60 [facility] Comment on above: Performed By: #### C MP, VIJI, LIPA, CMADM ####[facility] Ahmlrkqzkx[address] [place], [place] [address]Dr. Tadeo Smyth EGFR-NON AF [place] >60 Normal >=60 The [facility] Comment on above: Performed By: #### C MP, VIJI, LIPA, CMADM ####[facility] Thixtvyybn[address] [place], [place] [address]Dr. Tadeo Smyth Globulin (S) [Mass/Vol] 3.5 g/dL Normal [facility] Comment on above: Performed By: #### C MP, VIJI, LIPA, CMADM ####[facility] J[address]psl[address] [place], [place] [address]Dr. Tadeo Smyth Glucose [Mass/Vol] 98 mg/dL Normal 74-106 [facility] Comment on above: Performed By: #### C MP, VIJI, LIPA, CMADM ####[facility] Yorwwgnvmc[address] [place], [place] [address]Dr. Tadeo Smyth Potassium [Moles/Vol] 3.7 mmol/L Normal 3.5-5.1 [facility] Comment on above: Performed By: #### C MP, VIJI, LIPA, CMADM ####[facility] Xuwoemsskb[address] [place], [place] [address]Dr. Tadeo Smyth Protein [Mass/Vol] 7.3 g/dL Normal 6.4-8.2 [facility] Comment on above: Performed By: #### C MP, VIJI, LIPA, CMADM ####[facility] [address]hpwdulyi[address] [place] [address]Dr. Tadeo Smyth Sodium [Moles/Vol] 139 mmol/L Normal 136-145 [facility] Comment on above: Performed By: #### C JOSE, VIJI, LIPA, CMADM ####[facility] Jpcyvfqjix[address] [place] [address]Dr. Tadeo Smyth Urea nitrogen [Mass/Vol] 25.0 mg/dL Critically high 7.0-18.0 [facility] Comment on above: Performed By: #### C MP, VIJI, LIPA, CMADM ####[facility] Z[address]pzlimsm[address] [place] [address]Dr. Tadeo Smtyh Urea nitrogen/Creatinine [Mass ratio] 27.8 mg/mg Normal [facility] Comment on above: Performed By: #### C JOSE, VIJI, LIPA, CMADM ####[facility] Zhmufczt[address] [place] [address]Dr. Tadeo Smyth URINE MICROSCOPIC ONLYon BACTERIA NONE SEEN Normal NONE SEEN The [facility] Comment on above: Performed By: #### SANDRO MERCHANTRO ####[facility] Dfpdewpkyg[address] [place], [place] [address]Dr. Tadeo Smyth Bacteria identified Cx Nom (U) NOT INDICATED Normal [facility] Comment on above: Performed By: #### SANDRO MERCHANTRO ####[facility] [address]axecpgzr[address] [place] [address]Dr. Tadeo Smyth CAST NONE SEEN Normal NONE SEEN [facility] Comment on above: Performed By: #### Matthew FRANCISCO UMICRO ####[facility] R[address]xwvt[address] [place] [address]Dr. Tadeo Smyth Crystals LM Nom (Urine sed) NONE SEEN Normal NONE SEEN [facility] Comment on above: Performed By: #### Matthew FRANCISCO UMICRO ####[facility] Sfxytntzya[address] [place] [address]Dr. Tadeo Smyth Epithelial cells LM Ql (Urine sed) FEW Abnormal NONE SEEN /RARE The [facility] Comment on above: Performed By: #### KAROL MERCHANT ####[facility] [address] [place], [place] [address]Kd. Tadeo Smyth MUCOUS NONE SEEN Normal NONE SEEN The [facility] Comment on above: Performed By: #### KAROL MERCHANT ####[facility] Hdoqeqnqwx5[address] [place], [place] [address]Pr. Tadeo Smyth RBC 2-5 Abnormal 0-2 [facility] Comment on above: Performed By: #### KAROL MERCHANT ####[facility] Svsrpmfojl9048 [place], [place] [address]Fb. Tadeo Smyth WBC NONE SEEN Normal NONE SEEN The [facility] Comment on above: Performed By: #### KAROL MERCHANT ####[facility] [address]wq[address]zwrfg[address] [place], [place] [address]Rk. Tadeo Smyth Gastroenterology Office/Clin ic Noteon 07-24-2022 [...] Nunez to record this visit. JOSE FRANCISCO client services specialist and provider reviewed before signing. JOSE [...] 10 mg= (more content not included)... Normal [facility] Comment on above: Result Comment: Elec tronically Signed By: Agata Nunes\.br\Date and Time Signed: 07/22/22 16:25 EST\.br\Electronically Co-Signed By: Anai REAGAN MD\.br\Date and Time Co-Signed: 07/24/22 15:06 EST AMYLASEon 07-21-2022 Amylase [Catalytic activity/Vol] 49 U/L Normal 25-115 [facility] Comment on above: Performed By: #### L ISABEL, VIJI, CMP ####[facility] [address]zro[address] [place] [address]Dr. Tadeo Smyth CBC AUTO DIFFon 07-21-2022 BASO # 0.0 103/ul Normal 0.0-0.1 [facility] Comment on above: Performed By: #### C BC ####[facility] M[address]ogvmalv[address] [place], [place] [address]Dr. Tadeo Smyth Basophils/100 WBC (Bld) 0.6 % Normal 0.2-2.0 [facility] Comment on above: Performed By: #### C BC ####[facility] Mlswhyxdsj[address] [place], [place] [address]Dr. Tadeo Smyth EO # 0.2 103/ul Normal 0.0-0.7 [facility] Comment on above: Performed By: #### C BC ####[facility] Ctwfrwikom[address] [place], [place] [address]Dr. Tadeo Smyth Eosinophils/100 WBC (Bld) 3.1 % Normal 0.9-7.0 [facility] Comment on above: Performed By: #### C BC ####[facility] [address]tg[address] [place], [place] [address]Dr. Tadeo Smyth Erythrocyte distribution width (RBC) [Ratio] 13.2 % Normal 11.0-15.0 [facility] Comment on above: Performed By: #### C BC ####[facility] [address]jyzkiic[address] [place], [place] [address]Dr. Tadeo Smyth Hematocrit (Bld) [Volume fraction] 35.7 % Critically low 36.0-48.0 [facility] Comment on above: Performed By: #### C BC ####[facility] [address]qcjsc[address] [place], [place] [address]Dr. Tadeo Smyth Hemoglobin (Bld) [Mass/Vol] 11.6 g/dL Critically low 12.0-16.0 [facility] Comment on above: Performed By: #### C BC ####[facility] [address]ws[address] [place] [id number]. Tadeo Smyth IG # 0.01 10e3/ul Normal 0.00-0.03 [facility] Comment on above: Performed By: #### C BC ####[facility] [address]eq[address]qbwcte[address] [place] [address]Dr. Tadeo Smyth IG % 0.2 % Normal 0.0-0.5 [facility] Comment on above: Performed By: #### C BC ####[facility] [address]ib[address] [place] [address]Dr. Tadeo Smyth LYMPH # 1.9 103/ul Normal 1.2-3.8 [facility] Comment on above: Performed By: #### C BC ####[facility] Akng[address]mkgo[address] [place] [address]Dr. Margotnicole Smyth Lymphocytes/100 WBC (Bld) 34.8 % Normal 20.5-60.0 [facility] Comment on above: Performed By: #### C BC ####[facility] [address]qsjdcclsg[address] [place] [address]Dr. Tadeo Smyth MANUAL DIFF REQ NO Normal [facility] Comment on above: Performed By: #### C BC ####[facility] [address]tyhywsl[address] [place] [address]Dr. Tadeo Smyth MCH (RBC) [Entitic mass] 29.1 pg Normal 26.7-34.0 [facility] Comment on above: Performed By: #### C BC ####[facility] [address]ujgefi[address] [place] [address]Dr. Tadeo Smyth MCHC (RBC) [Mass/Vol] 32.5 g/dL Normal 29.9-35.2 [facility] Comment on above: Performed By: #### C BC ####[facility] [address] [place] [address]Dr. Tadeo Smyth MCV (RBC) [Entitic vol] 89.7 fL Normal 81.0-99.0 [facility] Comment on above: Performed By: #### C BC ####[facility] Ykutottgrj[address] [place] [address]Dr. Tadeo Smyth MONO # 0.3 103/ul Normal 0.3-0.8 [facility] Comment on above: Performed By: #### C BC ####[facility] Pqkm[address]oreds[address] [place] [address]Dr. Tadeo Smyth Monocytes/100 WBC (Bld) 6.1 % Normal 1.7-12.0 [facility] Comment on above: Performed By: #### C BC ####[facility] Hnodtpcdvd[address] [place], [place] [address]Dr. Tadeo Smyth NEUT # 3.0 103/ul Normal 1.4-6.5 [facility] Comment on above: Performed By: #### C BC ####[facility] Unpptzqzwb298[address] [place], [place] [address]Dr. Tadeo Smyth Neutrophils/100 WBC (Bld) 55.2 % Normal 43.0-75.0 [facility] Comment on above: Performed By: #### C BC ####[facility] Jxomisryql[address] [place], [place] [address]Dr. Tadeo Smyth Platelet mean volume (Bld) [Entitic vol] 9.0 fL Critically low 9.5-13.5 [facility] Comment on above: Performed By: #### C BC ####[facility] Ilqklxmtnw[address] [place], [place] [address]Dr. Tadeo Smyth PLT 358 103/ul Normal 150-450 [facility] Comment on above: Performed By: #### C BC ####[facility] Mafggqyvuo125[address] [place], [place] [address]Dr. Tadeo Smyth RBC 3.98 106/ul Critically low 4.20-5.40 [facility] Comment on above: Performed By: #### C BC ####[facility] Awbjandfet[address] [place], [place] [address]Dr. Tadeo Smyth WBC 5.4 103/ul Normal 4.0-11.0 [facility] Comment on above: Performed By: #### C BC ####[facility] Lmokevdvxh[address] [place], [place] [address]Dr. Tadeo Smyth LIPASEon 11-16-2022 Lipase [Catalytic activity/Vol] 54.0 U/L Critically low 73.0-393.0 [facility] Comment on above: Performed By: #### L VIJI HALL, CMP ####[facility] Rlz[address]jv[address] [place] [address]Dr. Tadeo Smyth PROF 14(COMP METB)on 022 Albumin [Mass/Vol] 3.5 g/dL Normal 3.4-5.0 [facility] Comment on above: Performed By: #### L VIJI HALL, CMP ####[facility] Yntumzuf[address] [place] [address]Dr. Tadeo Smyth Albumin/Globulin [Mass ratio] 0.9 {ratio} Normal [facility] Comment on above: Performed By: #### L VIJI HALL, CMP ####[facility] [address]osycc[address]ma[address] [place] [address]Dr. Tadeo Smyth ALP [Catalytic activity/Vol] 127 U/L Critically high 46-116 [facility] Comment on above: Performed By: #### L VIJI HALL, CMP ####[facility] Wwskbogpgu35[address] [place] [address]Dr. Tadeo Smyth ALT [Catalytic activity/Vol] 16 U/L Normal 14-59 [facility] Comment on above: Performed By: #### L VIJI HALL, CMP ####[facility] Micjftlpxg[address] [place] [address]Dr. Tadeo Smyth Anion gap [Moles/Vol] 10.6 mmol/L Normal [facility] Comment on above: Performed By: #### L VIJI HALL, CMP ####[facility] [address]tv[address] [place] [id number]. Tadeo Smyth AST [Catalytic activity/Vol] 16 U/L Normal 15-37 [facility] Comment on above: Performed By: #### L VIJI HALL, CMP ####[facility] Ve[address]xalndl[address] [place] [address]Dr. Tadeo Smyth Bilirubin [Mass/Vol] 0.3 mg/dL Normal 0.2-1.0 [facility] Comment on above: Performed By: #### L VIJI HALL, CMP ####[facility] Tyrjxpxdqj[address] [place] [address]Dr. Tadeo Smyth Calcium [Mass/Vol] 9.1 mg/dL Normal 8.5-10.1 [facility] Comment on above: Performed By: #### L VIJI HALL, CMP ####[facility] Mcvbmoathe[address] [place], [place] [address]Dr. Tadeo Smyth Chloride [Moles/Vol] 104 mmol/L Normal 98-107 [facility] Comment on above: Performed By: #### L VIJI HALL, CMP ####[facility] Hkixsxqnjl244[address] [place], [place] [address]Dr. Tadeo Smyth CO2 [Moles/Vol] 28.0 mmol/L Normal 21.0-32.0 [facility] Comment on above: Performed By: #### L VIJI HALL, CMP ####[facility] Ekxfydcphk[address] [place], [place] [address]Dr. Tadeo Smyth Creatinine [Mass/Vol] 0.96 mg/dL Normal 0.55-1.02 [facility] Comment on above: Performed By: #### L VIJI HALL, CMP ####[facility] Ykvdzlpumt289[address] [place], [place] [address]Dr. Tadeo Smyth EGFR-AF [place]ER >60 Normal >=60 [facility] Comment on above: Performed By: #### L VIJI HALL, CMP ####[facility] Gjvdckabrh[address] [place], [place] [address]Dr. Tadeo Smyth EGFR-NON AF [place]ER >60 Normal >=60 [facility] Comment on above: Performed By: #### L VIJI HALL, CMP ####[facility] Rkgchqpbfj[address] [place], [place] [address]Dr. Tadeo Smyth Globulin (S) [Mass/Vol] 3.8 g/dL Normal [facility] Comment on above: Performed By: #### L VIJI HALL, CMP ####[facility] Ngjcnmtozd85[address] [place], [place] [address]Dr. Tadeo Smyth Glucose [Mass/Vol] 93 mg/dL Normal 74-106 [facility] Comment on above: Performed By: #### L VIJI HALL, CMP ####[facility] Mogatwytxl364[address] [place] [address]Dr. Tadeo Smyth Potassium [Moles/Vol] 3.6 mmol/L Normal 3.5-5.1 [facility] Comment on above: Performed By: #### L VIJI HALL, CMP ####[facility] Utlcotggbe322[address] [place], [place] [address]Dr. Tadeo Smyth Protein [Mass/Vol] 7.3 g/dL Normal 6.4-8.2 [facility] Comment on above: Performed By: #### L VIJI HALL, CMP ####[facility] Viazgccupa[address] [place], [place] [address]Dr. Tadeo Smyth Sodium [Moles/Vol] 139 mmol/L Normal 136-145 [facility] Comment on above: Performed By: #### L VIJI HALL, CMP ####[facility] Glzdmmhimj[address] [place], [place] [address]Dr. Tadeo Smyth Urea nitrogen [Mass/Vol] 16.0 mg/dL Normal 7.0-18.0 [facility] Comment on above: Performed By: #### L VIJI HALL, CMP ####[facility] Xwkdolzqgg[address] [place], [place] [address]Dr. Tadeo Smyth Urea nitrogen/Creatinine [Mass ratio] 16.7 mg/mg Normal [facility] Comment on above: Performed By: #### L VIJI HALL, CMP ####[facility] Dwfrijqhfq[address] [place], [place] [address]Dr. Tadeo Smyth XR ABD FLAT UP_PA Kasey 07-21 XR ABD FLAT UP_PA CH Normal [facility] CULTURE URINEon 07-10-2022 CULTURE URINE Normal [facility] Comment on above: Performed By: #### U RCX ####[facility] Cjjoizdcnr378[address] [place], [place] [address]Dr. Tadeo Haja INSULINon 07-09-2022 Insulin 15.9 uIU/mL Normal 2.6-24.9 [facility] Comment on above: Performed By: #### I NSULIN ####[facility] Henijidphc340[address] [place], [place] [address]Dr. Tadeo Smyth CBC AUTO DIFFon 07-08-2022 BASO # 0.0 103/ul Normal 0.0-0.1 [facility] Comment on above: Performed By: #### C BC ####[facility] Maxwtszkio[address] [place], [place] [address]Dr. Tadeo Smyth Basophils/100 WBC (Bld) 0.6 % Normal 0.2-2.0 [facility] Comment on above: Performed By: #### C BC ####[facility] Rbrnhgyals[address] [place], [place] [address]Dr. Tadeo Smyth EO # 0.2 103/ul Normal 0.0-0.7 [facility] Comment on above: Performed By: #### C BC ####[facility] Qoxyyutghb67[address] [place], [place] [address]Dr. Tadeo Smyth Eosinophils/100 WBC (Bld) 3.4 % Normal 0.9-7.0 [facility] Comment on above: Performed By: #### C BC ####[facility] Vyrbhadube[address] [place], [place] [address]Dr. Tadeo Smyth Erythrocyte distribution width (RBC) [Ratio] 13.1 % Normal 11.0-15.0 [facility] Comment on above: Performed By: #### C BC ####[facility] Ofnyexepgc[address] [place], [place] [address]Dr. Tadeo Smyth Hematocrit (Bld) [Volume fraction] 42.4 % Normal 36.0-48.0 [facility] Comment on above: Performed By: #### C BC ####[facility] Gvbfvpfidx[address] [place], [place] [address]Dr. Tadeo Smyth Hemoglobin (Bld) [Mass/Vol] 13.7 g/dL Normal 12.0-16.0 [facility] Comment on above: Performed By: #### C BC ####[facility] Disaogkbsf[address] [place], [place] [address]Dr. Tadeo Smyth IG # 0.01 10e3/ul Normal 0.00-0.03 [facility] Comment on above: Performed By: #### C BC ####[facility] Ssohjhqyeo[address] [place] [address]Dr. Tadeo Smyth IG % 0.2 % Normal 0.0-0.5 [facility] Comment on above: Performed By: #### C BC ####[facility] Pchsszpnwx[address] [place], [place] [address]DrNeo Tadeo Smyth LYMPH # 2.1 103/ul Normal 1.2-3.8 [facility] Comment on above: Performed By: #### C BC ####[facility] Xkurbwmfta[address] [place], [place] [address]DrNeo Tadeo Haja Lymphocytes/100 WBC (Bld) 41.2 % Normal 20.5-60.0 [facility] Comment on above: Performed By: #### C BC ####[facility] Vtqdwsuiko[address] [place], [place] [address]Dr. Tadeo Haja MANUAL DIFF REQ NO Normal [facility] Comment on above: Performed By: #### C BC ####[facility] Eskqaywwya[address] [place], [place] [address]Dr. Tadeo Smyth MCH (RBC) [Entitic mass] 28.8 pg Normal 26.7-34.0 [facility] Comment on above: Performed By: #### C BC ####[facility] Sntskpvnpe6[address] [place], [place] [address]Dr. Tadeo Haja MCHC (RBC) [Mass/Vol] 32.3 g/dL Normal 29.9-35.2 [facility] Comment on above: Performed By: #### C BC ####[facility] Meohglaqwr[address] [place], [place] [address]DrNeo Tadeo Haja MCV (RBC) [Entitic vol] 89.3 fL Normal 81.0-99.0 [facility] Comment on above: Performed By: #### C BC ####[facility] Cjumdzawpn[address] [place], [place] [address]DrNeo Tadeo Haja MONO # 0.4 103/ul Normal 0.3-0.8 [facility] Comment on above: Performed By: #### C BC ####[facility] [address]wb[address] [place] [id number]. Tadeo Smyth Monocytes/100 WBC (Bld) 8.1 % Normal 1.7-12.0 [facility] Comment on above: Performed By: #### C BC ####[facility] [address]otkmpt[address] [place] [id number]. Tadeo Smyth NEUT # 2.4 103/ul Normal 1.4-6.5 [facility] Comment on above: Performed By: #### C BC ####[facility] Rasemfkeec[address] [place] [address]Dr. Tadeo Smyth Neutrophils/100 WBC (Bld) 46.5 % Normal 43.0-75.0 [facility] Comment on above: Performed By: #### C BC ####[facility] Egpuorxhna90[address] [place] [address]Dr. Tadeo Smyth Platelet mean volume (Bld) [Entitic vol] 9.3 fL Critically low 9.5-13.5 [facility] Comment on above: Performed By: #### C BC ####[facility] Eqkgjsimlq[address] [place] [id number]. Tadeo Smyth PLT 443 103/ul Normal 150-450 [facility] Comment on above: Performed By: #### C BC ####[facility] Irdywceapv74[address] [place] [id number]. Tadeo Smyth RBC 4.75 106/ul Normal 4.20-5.40 [facility] Comment on above: Performed By: #### C BC ####[facility] G[address]yxbvuav[address] [place] [id number]. Tadeo Smyth WBC 5.1 103/ul Normal 4.0-11.0 [facility] Comment on above: Performed By: #### C BC ####[facility] Lenwasvrqn[address] [place] [id number]. Tadeo Smyth FREE THYROXINE INDEX T7on FTI 2.91 Normal 1.30-4.50 [facility] Comment on above: Performed By: #### T 7, LIPID, TSH, CMP ####[facility] Effzqnzwki[address] [place] [address]Dr. Tadeo Smyth T3U 31.0 % Normal 30.0-39.0 [facility] Comment on above: Performed By: #### T 7, LIPID, TSH, CMP ####[facility] Avbuxzaufw[address] [place] [address]Dr. Tadeo Smyth T4 [Mass/Vol] 9.40 ug/dL Normal 4.80-13.90 [facility] Comment on above: Performed By: #### T 7, LIPID, TSH, CMP ####[facility] Iahpkccyrc[address] [place], [place] [address]Dr. Tadeo Smyth GLYCOHEMOGLOBIN A1Con 2021 ADA RECOMMENDATION SEE BELOW Normal [facility] Comment on above: Result Comment: ADA RECOMMENDED LIMIT 4.0 - 6.0 ADA THERAPEUTIC TARGET < 7.0 ACTION SUGGESTED > 7.0 Performed By: #### A 1C ####[facility] Oucnhykiiq[address] [place], [place] [address]Dr. Tadeo Smyth Glucose [Mass/Vol] 120 mg/dL Normal [facility] Comment on above: Performed By: #### A 1C ####[facility] Hqqlydfzlp[address] [place], [place] [address]Dr. Tadeo Smyth HbA1c (Bld) [Mass fraction] 5.8 % Normal 4.5-6.2 [facility] Comment on above: Performed By: #### A 1C ####[facility] Zfzjlkeoki[address] [place], [place] [address]Dr. Tadeo Smyth IRONon 07-08-2022 Iron [Mass/Vol] 59.0 ug/dL Normal 50.0-170.0 [facility] Comment on above: Performed By: #### I KEEGAN ####[facility] Usumjwzylg[address] [place], [place] [address]Dr. Tadeo Smyth LIPID PROFILEon 07-08-2022 CHOL-HDL RATIO NORM SEE BELOW Normal [facility] Comment on above: Result Comment: 3.3 - 4.4 LOW RISK 4.4 - 7.1 AVERAGE RISK 7.1 - 11.0 MODERATE RISK >11.0 HIGH RISK Performed By: #### T 7, LIPID, TSH, CMP ####[facility] [address]qklovlf[address] [place] [id number]. Tadeo Smyth Cholesterol [Mass/Vol] 227 mg/dL Critically high <=200 [facility] Comment on above: Performed By: #### T 7, LIPID, TSH, CMP ####[facility] K[address] [place] [id number]. Margotlan Smyth Cholesterol in HDL [Mass/Vol] 67 mg/dL Critically high 40-60 [facility] Comment on above: Performed By: #### T 7, LIPID, TSH, CMP ####[facility] Huuuvcclmq[address] [place] [id number]. Tadeo Smyth Cholesterol in LDL [Mass/Vol] 139.0 mg/dL Normal [facility] Comment on above: Performed By: #### T 7, LIPID, TSH, CMP ####[facility] S[address]hibccroi[address] [place] [id number]. Tadeo Smyth Cholesterol.total/Cho lesterol in HDL [Mass ratio] 3.4 {ratio} Normal [facility] Comment on above: Performed By: #### T 7, LIPID, TSH, CMP ####[facility] [address]osc[address]ycnu[address] [place] [id number]. Margotlan Smyth HDL NORMAL > or = 60 mg/dl - LO W CARDIOVASCULAR RISK <40 mg/dl - HIGH CARDIOVASCULAR RISK Normal [facility] Comment on above: Performed By: #### T 7, LIPID, TSH, CMP ####[facility] [address]miczxc[address] [place] [id number]. Margotlan Smyth LDL CALC NORMAL SEE BELOW Normal [facility] Comment on above: Result Comment: <100 mg/dl OPTIMAL 100 - 129 mg/dl NEAR OR ABOVE OPTIMAL 130 - 159 mg/dl BORDERLINE HIGH 160 - 189 mg/dl HIGH >190 mg/dl VERY HIGH Performed By: #### T 7, LIPID, TSH, CMP ####[facility] [address]rx[address] [place], [place] [address]Dr. Tadeo Smyth Triglyceride [Mass/Vol] 105 mg/dL Normal <=150 [facility] Comment on above: Performed By: #### T 7, LIPID, TSH, CMP ####[facility] [address]kspmglblx[address] [place] [address]Dr. Tadeo Smyth VLDL CALC 21.0 mg/dL Normal [facility] Comment on above: Performed By: #### T 7, LIPID, TSH, CMP ####[facility] Hclqapjxjv[address] [place] [address]Dr. Tadeo Smyth OCC BLD IMMUNO SCREENon 11-0 OCCULT BLOOD Negative Normal NEGATIVE [facility] Comment on above: Performed By: #### O BSCRN ####[facility] Utmmrhipas[address] [place] [address]Dr. Tadeo Smyth PROF 14(COMP METB)on 022 Albumin [Mass/Vol] 3.7 g/dL Normal 3.4-5.0 [facility] Comment on above: Performed By: #### T 7, LIPID, TSH, CMP ####[facility] Ozmoofcdfy[address] [place] [address]Dr. Tadeo Smyth Albumin/Globulin [Mass ratio] 0.8 {ratio} Normal [facility] Comment on above: Performed By: #### T 7, LIPID, TSH, CMP ####[facility] T[address]zvzeidaj[address] [place] [address]Dr. Tadeo Smyth ALP [Catalytic activity/Vol] 141 U/L Critically high 46-116 [facility] Comment on above: Performed By: #### T 7, LIPID, TSH, CMP ####[facility] Jrqqglaogg34[address] [place] [address]Dr. Tadeo Smyth ALT [Catalytic activity/Vol] 23 U/L Normal 14-59 [facility] Comment on above: Performed By: #### T 7, LIPID, TSH, CMP ####[facility] [address]jseiursij[address] [place] [address]Dr. Tadeo Smyth Anion gap [Moles/Vol] 9.8 mmol/L Normal [facility] Comment on above: Performed By: #### T 7, LIPID, TSH, CMP ####[facility] Fuo[address]osqwn[address] [place], [place] [address]Dr. Tadeo Smyth AST [Catalytic activity/Vol] 13 U/L Critically low 15-37 [facility] Comment on above: Performed By: #### T 7, LIPID, TSH, CMP ####[facility] V[address]plfyxd[address] [place], [place] [address]Dr. Tadeo Smyth Bilirubin [Mass/Vol] 0.4 mg/dL Normal 0.2-1.0 [facility] Comment on above: Performed By: #### T 7, LIPID, TSH, CMP ####[facility] Kmdqzfdobg[address] [place], [place] [address]Dr. Tadeo Smyth Calcium [Mass/Vol] 10.2 mg/dL Critically high 8.5-10.1 [facility] Comment on above: Performed By: #### T 7, LIPID, TSH, CMP ####[facility] Uyyfgklbgm[address] [place], [place] [address]Dr. Tadeo Smyth Chloride [Moles/Vol] 101 mmol/L Normal 98-107 [facility] Comment on above: Performed By: #### T 7, LIPID, TSH, CMP ####[facility] Jxccvecefp[address] [place], [place] [address]Dr. Tadeo Smyth CO2 [Moles/Vol] 32.8 mmol/L Critically high 21.0-32.0 [facility] Comment on above: Performed By: #### T 7, LIPID, TSH, CMP ####[facility] Ujcphwvtbv[address] [place], [place] [address]Dr. Tadeo Smyth Creatinine [Mass/Vol] 0.92 mg/dL Normal 0.55-1.02 [facility] Comment on above: Performed By: #### T 7, LIPID, TSH, CMP ####[facility] Vnvdxqvhnf[address] [place], [place] [address]Dr. Tadeo Smyth EGFR-AF [place]ER >60 Normal >=60 [facility] Comment on above: Performed By: #### T 7, LIPID, TSH, CMP ####[facility] Hqnxxizydf[address] [place] [address]Dr. Tadeo Smyth EGFR-NON AF [place]ER >60 Normal >=60 [facility] Comment on above: Performed By: #### T 7, LIPID, TSH, CMP ####[facility] [address]qzz[address]si[address] [place] [address]Dr. Tadeo Smyth Globulin (S) [Mass/Vol] 4.8 g/dL Normal [facility] Comment on above: Performed By: #### T 7, LIPID, TSH, CMP ####[facility] [address]zt[address]wyx[address] [place] [address]Dr. Tadeo Smyth Glucose [Mass/Vol] 114 mg/dL Critically high 74-106 [facility] Comment on above: Performed By: #### T 7, LIPID, TSH, CMP ####[facility] Nzxzfihcvu[address] [place], [place] [address]Dr. Tadeo Smyth Potassium [Moles/Vol] 3.6 mmol/L Normal 3.5-5.1 [facility] Comment on above: Performed By: #### T 7, LIPID, TSH, CMP ####[facility] Duphqiuutd[address] [place] [address]Dr. Tadeo Smyth Protein [Mass/Vol] 8.5 g/dL Critically high 6.4-8.2 [facility] Comment on above: Performed By: #### T 7, LIPID, TSH, CMP ####[facility] [address]yn[address]errx[address] [place] [address]Dr. Tadeo Smyth Sodium [Moles/Vol] 140 mmol/L Normal 136-145 [facility] Comment on above: Performed By: #### T 7, LIPID, TSH, CMP ####[facility] Crpagdwfhw[address] [place] [address]Dr. Tadeo Smyth Urea nitrogen [Mass/Vol] 23.0 mg/dL Critically high 7.0-18.0 [facility] Comment on above: Performed By: #### T 7, LIPID, TSH, CMP ####[facility] Hiwjoypgla[address] [place] [address]Dr. Tadeo mSyth Urea nitrogen/Creatinine [Mass ratio] 25.0 mg/mg Normal [facility] Comment on above: Performed By: #### T 7, LIPID, TSH, CMP ####[facility] Nvuxkhjxfj[address] [place] [address]Dr. Tadeo Smyth TSHon 07-08-2022 TSH 3.748 uIU/mL Critically high 0.358-3.740 [facility] Comment on above: Performed By: #### T 7, LIPID, TSH, CMP ####[facility] [address]xxzsyj[address] [place], [place] [address]Dr. Tadeo Smyth UA RANDOM W/MICROSCOPICon BACTERIA TRACE Abnormal NONE SEEN [facility] Comment on above: Performed By: #### U AMIC ####[facility] Mrcpzeathp[address] [place], [place] [address]Dr. Tadeo Smyth Bilirubin Ql (U) Negative Normal NEGATIVE [facility] Comment on above: Performed By: #### U AMIC ####[facility] Iajzfyzxrf[address] [place], [place] [address]Dr. Tadeo Smyth CAST NONE SEEN Normal NONE SEEN [facility] Comment on above: Performed By: #### U AMIC ####[facility] [address]pf[address]whff[address] [place], [place] [address]Dr. Tadeo Smyth Clarity (U) CLEAR Normal CLEAR [facility] Comment on above: Performed By: #### U AMIC ####[facility] [address]eksxkfhut[address] [place], [place] [address]Dr. Tadeo Smyth Color (U) YELLOW Normal YELLOW [facility] Comment on above: Performed By: #### U AMIC ####[facility] [address]cgzbawqes[address] [place], [place] [address]Dr. Tadeo Smyth Crystals LM Nom (Urine sed) NONE SEEN Normal NONE SEEN [facility] Comment on above: Performed By: #### U AMIC ####[facility] Ejsdtjnnkx[address] [place], [place] [address]Dr. Tadeo Smyth Epithelial cells LM Ql (Urine sed) FEW Abnormal NONE SEEN /RARE [facility] Comment on above: Performed By: #### U AMIC ####[facility] [address]ir[address]askh[address] [place] [address]Dr. Tadeo Smyth Glucose Ql (U) Negative Normal NEGATIVE [facility] Comment on above: Performed By: #### U AMIC ####[facility] Gbxxsbbcsb[address] [place], [place] [address]Dr. Tadeo Smyth Hemoglobin Ql (U) SMALL Abnormal NEGATIVE [facility] Comment on above: Performed By: #### U AMIC ####[facility] [facility] Vablhymlve[address] [place], [place] [address]Dr. Tadeo Smyth Ketones Ql (U) TRACE Abnormal NEGATIVE [facility] Comment on above: Performed By: #### U AMIC ####[facility] Vkqyzfbkrb[address] [place], [place] [address]Dr. Tadeo Smyth LEUKOCYTES TRACE Abnormal NEGATIVE [facility] Comment on above: Performed By: #### U AMIC ####[facility] Hkzwzskdth[address] [place], [place] [address]Dr. Tadeo Smyth MUCOUS NONE SEEN Normal NONE SEEN [facility] Comment on above: Performed By: #### U AMIC ####[facility] Wrtvewhdkm[address] [place], [place] [address]Dr. Tadeo Smyth Nitrite Ql (U) Negative Normal NEGATIVE [facility] Comment on above: Performed By: #### U AMIC ####[facility] Xkmhlbudff047[address] [place], [place] [address]Dr. Tadeo Smyth pH (U) 6.5 [pH] Normal 5-9 [facility] Comment on above: Performed By: #### U AMIC ####[facility] Btwcroxbdp720[address] [place], [place] [address]Dr. Tadeo Smyth RBC 5-10 Abnormal 0-2 [facility] Comment on above: Performed By: #### U AMIC ####[facility] Gqwjgaanap[address] [place], [place] [address]Dr. Tadeo Smyth SPEC GRAVITY 1.020 Normal 1.005-<=1.0 25 [facility] Comment on above: Performed By: #### U AMIC ####[facility] Ohuzttvbkm601[address] [place], [place] [address]Dr. Tadeo Smyth UA PROTEIN 30 mg/dl Abnormal NEGATIVE/ TRACE [facility] Comment on above: Performed By: #### U AMIC ####[facility] [address] [place] [id number]. Tadeo Smyth Urobilinogen Qn (U) 0.2 {Benito'U}/dL Normal 0.2 - 1. 0 [facility] Comment on above: Performed By: #### U AMIC ####[facility] [address] [place] [id number]. Tadeo Smyth WBC 2-5 Abnormal NONE SEEN [facility] Comment on above: Performed By: #### U AMIC ####[facility] [address]stu[address] [place] [id number]. Tadeo Smyth [facility] SARS-CoV-2 (COVID-19) RNA CHEN+probe Ql (Unsp spec) Not detected Normal NOT DETECTED [facility] Comment on above: Result Comment: When diagnostic [...] for this test is supported by the [employer] Worker of Health and Human Service's declaration that [...] be used). Performed By: #### C VDTBH ####[facility] [address] [place], [place] [address]Qe. Tadeo Symth CULTURE URINEon 06-09-2022 CULTURE URINE Normal [facility] Comment on above: Performed By: #### U RCX ####[facility] Bkpvyrpppn[address] [place], [place] [address]Dr. Tadeo Smyth GI PANEL (PCR)on 06-07-2022 Adenovirus F 40/41 Not detected Normal NOT DETECTED [facility] Comment on above: Performed By: #### G IPANEL ####[facility] Skbusxkgqc969[address] [place], [place] [address]Dr. Margotnicole Smyth Astrovirus Not detected Normal NOT DETECTED [facility] Comment on above: Performed By: #### G IPANEL ####[facility] Bsqrlqvaup368[address] [place], [place] [address]Dr. Tadeo Smyth C. Diff toxin A/B Not detected Normal NOT DETECTED [facility] Comment on above: Performed By: #### G IPANEL ####[facility] Gwkclphiai[address]16[address] [place], [place] [address]Dr. Tadeo Smyth Campylobacter Not detected Normal NOT DETECTED [facility] Comment on above: Performed By: #### G IPANEL ####[facility] Ezugedgrrl[address] [place], [place] [address]Dr. Margotnicole Smyth Cryptosporidium Not detected Normal NOT DETECTED [facility] Comment on above: Performed By: #### G IPANEL ####[facility] Jnndwuxlvt288[address] [place], [place] [address]Dr. Margotnicole Smyth Cyclos. Cayetanensis Not detected Normal NOT DETECTED [facility] Comment on above: Performed By: #### G IPANEL ####[facility] Qhaadgkdhl464[address] [place], [place] [address]Dr. Margotnicole Smyth E. Coli O157 Not Applicable Normal Not Applicable [facility] Comment on above: Performed By: #### G IPANEL ####[facility] Hwtwdyfuwp330[address] [place], [place] [address]Dr. Margotnicole Smyth E. histolytica Not detected Normal NOT DETECTED [facility] Comment on above: Performed By: #### G IPANEL ####[facility] Lhxahbyjig8[address] [place], [place] [address]Dr. Margotnicole Smyth EAEC Not detected Normal NOT DETECTED [facility] Comment on above: Performed By: #### G IPANEL ####[facility] Xeueladtox[address] [place] [phone]. Tadeo Smyth EIEC Not detected Normal NOT DETECTED [facility] Comment on above: Performed By: #### G IPANEL ####[facility] [address] [place] [address]Dr. Tadeo Smyth EPEC Not detected Normal NOT DETECTED [facility] Comment on above: Performed By: #### G IPANEL ####[facility] Bqrsaqvfos10[address] [place], [place] [address]Dr. Tadeo Smyth ETEC Not detected Normal NOT DETECTED [facility] Comment on above: Performed By: #### G IPANEL ####[facility] Eyqkddpgax[address] [place], [place] [address]Dr. Tadeo Smyth G. Lamblia Not detected Normal NOT DETECTED [facility] Comment on above: Performed By: #### G IPANEL ####[facility] Gbrmoipgoq46[address] [place], [place] [address]Dr. Tadeo Smyth GIPANEL CONTROLS PASSED Normal [facility] Comment on above: Performed By: #### G IPANEL ####[facility] Xjumufubrj[address] [place], [place] [address]Dr. Tadeo MEZANL ARRON HEADER GI PANEL BACTERIA Normal T [facility] Comment on above: Performed By: #### G IPANEL ####[facility] Kbtzxdsowf[address] [place], [place] [address]Dr. Tadeo MEZANLHD ECOLI GI PANEL DIARRHEAGEN IC E.COLI / SHIGELLA Normal [facility] Comment on above: Performed By: #### G IPANEL ####[facility] Merkkmllhv[address] [place], [place] [address]Dr. Margotnicole Smyth GIPNLHD INFO SEE BELOW Normal [facility] Comment on above: Result Comment: EAEC - Enteroaggregative E. Coli EPEC- Enteropathogenic E. Coli ETEC- Enterotoxigenic E. Coli lt/st STEC- Shigella-like toxin-producing E. Coli stx1/stx2 EIEC- Shigella/Enteroinvasive E. Coli Performed By: #### G IPANEL ####[facility] Zqbjikhvdz424[address] [place], [place] [address]Dr. Tadeo Smyth GIPNLHD PARASITES GI PANEL PARASITES Normal [facility] Comment on above: Performed By: #### G IPANEL ####[facility] Cpxmpqrqav6330[address] [place], [place] [address]Dr. Tadeo Smyth GIPNLHD VIRUS GI PANEL VIRUSES Normal [facility] Comment on above: Performed By: #### G IPANEL ####[facility] Gkymxtvwam4349[address] [place], [place] [address]Dr. Tadeo Smyth Norovirus GI/GII Not detected Normal NOT DETECTED [facility] Comment on above: Performed By: #### G IPANEL ####[facility] Iuyjqendfw0999[address] [place], [place] [address]Dr. Tadeo Smyth P. Shigelloides Not detected Normal NOT DETECTED [facility] Comment on above: Performed By: #### G IPANEL ####[facility] Aimvwlivox337[address] [place], [place] [address]Dr. Tadeo Smyth Rotavirus A Not detected Normal NOT DETECTED [facility] Comment on above: Performed By: #### G IPANEL ####[facility] Ltxllkziwy[address] [place], [place] [address]Dr. Tadeo Smyth Salmonella Not detected Normal NOT DETECTED [facility] Comment on above: Performed By: #### G IPANEL ####[facility] Lzwnnfhjso[address] [place], [place] [address]Dr. Tadeo Smyth Sapovirus Not detected Normal NOT DETECTED [facility] Comment on above: Performed By: #### G IPANEL ####[facility] Gzgavxfjbk599[address] [place], [place] [address]Dr. Tadeo Smyth STEC Not detected Normal NOT DETECTED [facility] Comment on above: Performed By: #### G IPANEL ####[facility] Joqawrgayd7815[address] [place], [place] [address]Dr. Tadeo Smyth Vibrio Not detected Normal NOT DETECTED [facility] Comment on above: Performed By: #### G IPANEL ####[facility] Pkeoydccsz[address] [place], [place] [address]Dr. Tadeo Smyth Vibrio Cholera Not detected Normal NOT DETECTED [facility] Comment on above: Performed By: #### G IPANEL ####[facility] [address]urs[address] [place] [address]Dr. Tadeo Smyth Y. Enterocolitica Not detected Normal NOT DETECTED [facility] Comment on above: Performed By: #### G IPANEL ####[facility] Grmzeyenvu15[address] [place], [place] [address]Dr. Margotnicole Smyth AMYLASEon 06-06-2022 Amylase [Catalytic activity/Vol] 61 U/L Normal 25-115 [facility] Comment on above: Performed By: #### A MY, LIPA ####[facility] Asjkhupava239[address] [place], [place] [address]Dr. Tadeo Smyth CBC AUTO DIFFon 06-06-2022 BASO # 0.0 103/ul Normal 0.0-0.1 [facility] Comment on above: Performed By: #### C BC ####[facility] Dbodicqgna3768[address] [place], [place] [address]Dr. Tadeo Smyth Basophils/100 WBC (Bld) 0.5 % Normal 0.2-2.0 [facility] Comment on above: Performed By: #### C BC ####[facility] Amwvltqzkb623[address] [place], [place] [address]Dr. Tadeo Smyth EO # 0.2 103/ul Normal 0.0-0.7 [facility] Comment on above: Performed By: #### C BC ####[facility] Mrcffjwxpb877[address] [place], [place] [address]Dr. Tadeo Smyth Eosinophils/100 WBC (Bld) 3.4 % Normal 0.9-7.0 [facility] Comment on above: Performed By: #### C BC ####[facility] Ftammykffd801[address] [place], [place] [address]Dr. Tadeo Smyth Erythrocyte distribution width (RBC) [Ratio] 13.2 % Normal 11.0-15.0 [facility] Comment on above: Performed By: #### C BC ####[facility] Olvrafrsyc[address] [place], [place] [address]Dr. Tadeo Smyth Hematocrit (Bld) [Volume fraction] 38.3 % Normal 36.0-48.0 [facility] Comment on above: Performed By: #### C BC ####[facility] [address]fs[address] [place] [address]Dr. Tadeo Smyth Hemoglobin (Bld) [Mass/Vol] 12.0 g/dL Normal 12.0-16.0 [facility] Comment on above: Performed By: #### C BC ####[facility] Ztgfshrqhb4[address] [place], [place] [address]Dr. Margotnicole Haja IG # 0.01 10e3/ul Normal 0.00-0.03 [facility] Comment on above: Performed By: #### C BC ####[facility] Qdprchdeqp[address] [place], [place] [address]Dr. Tadeo Smyth IG % 0.2 % Normal 0.0-0.5 [facility] Comment on above: Performed By: #### C BC ####[facility] Jfjlicivtj[address] [place], [place] [address]Dr. Tadeo Smyth LYMPH # 1.7 103/ul Normal 1.2-3.8 [facility] Comment on above: Performed By: #### C BC ####[facility] Wqzqwkeihu[address] [place], [place] [address]Dr. Tadeo Smyth Lymphocytes/100 WBC (Bld) 28.1 % Normal 20.5-60.0 [facility] Comment on above: Performed By: #### C BC ####[facility] Agzdyxxubf0565[address] [place], [place] [address]Dr. Tadeo Smyth MANUAL DIFF REQ NO Normal [facility] Comment on above: Performed By: #### C BC ####[facility] Lvfjutmytd[address]13[address] [place], [place] [address]Dr. Tadeo Smyth MCH (RBC) [Entitic mass] 28.5 pg Normal 26.7-34.0 [facility] Comment on above: Performed By: #### C BC ####[facility] Ozbhbezucj054[address] [place], [place] [address]Dr. Tadeo Smyth MCHC (RBC) [Mass/Vol] 31.3 g/dL Normal 29.9-35.2 [facility] Comment on above: Performed By: #### C BC ####[facility] [address] [place] [address]Dr. Tadeo Smyth MCV (RBC) [Entitic vol] 91.0 fL Normal 81.0-99.0 [facility] Comment on above: Performed By: #### C BC ####[facility] Ozsqwvefid[address] [place], [place] [address]Dr. Tadeo Smyth MONO # 0.4 103/ul Normal 0.3-0.8 [facility] Comment on above: Performed By: #### C BC ####[facility] Qsktzwdwdv464[address] [place], [place] [address]Dr. Tadeo Haja Monocytes/100 WBC (Bld) 7.1 % Normal 1.7-12.0 [facility] Comment on above: Performed By: #### C BC ####[facility] Lwjujcirpp[address] [place], [place] [address]Dr. Tadeo Smyth NEUT # 3.6 103/ul Normal 1.4-6.5 [facility] Comment on above: Performed By: #### C BC ####[facility] Tqdzdecmwx939[address] [place], [place] [address]Dr. Margotnicole Smyth Neutrophils/100 WBC (Bld) 60.7 % Normal 43.0-75.0 [facility] Comment on above: Performed By: #### C BC ####[facility] Ddcoqfhagc6[address] [place], [place] [address]Dr. Tadeo Haja Platelet mean volume (Bld) [Entitic vol] 8.9 fL Critically low 9.5-13.5 [facility] Comment on above: Performed By: #### C BC ####[facility] Ypzrolfubw6[address] [place], [place] [address]Dr. Margotnicole Haja PLT 374 103/ul Normal 150-450 [facility] Comment on above: Performed By: #### C BC ####[facility] Cnsjydpkuq360[address] [place], [place] [address]Dr. Tadeo Smyth RBC 4.21 106/ul Normal 4.20-5.40 [facility] Comment on above: Performed By: #### C BC ####[facility] [address]tr[address] [place] [address]Dr. Tadeo Smyth WBC 5.9 103/ul Normal 4.0-11.0 [facility] Comment on above: Performed By: #### C BC ####[facility] Krkcggmgyc065[address] [place], [place] [address]Dr. Tadeo Smyth CT ABD/PELV W CONon 06-06-[address] ABD/PELV W CON Normal [facility] ER URINE PROFILEon 2 Bilirubin Ql (U) Negative Normal NEGATIVE [facility] Comment on above: Performed By: #### KAROL MERCHANT ####[facility] Axnlmqaqbj587[address] [place], [place] [address]Dr. Tadeo Smyth Clarity (U) CLOUDY Abnormal CLEAR [facility] Comment on above: Performed By: #### KAROL MERCHANT ####[facility] Oylidnbqyx[address] [place], [place] [address]Dr. Tadeo Smyth Color (U) LT. YELLOW Normal YELLOW [facility] Comment on above: Performed By: #### KAROL MERCHANT ####[facility] Zakxxbnrhg[address] [place], [place] [address]Dr. Tadeo Smyth ERUAHD A micrscopic examina tion will be performed if indicated. Normal [facility] Comment on above: Performed By: #### KAROL MERCHANT ####[facility] Cpozmnprnl[address] [place], [place] [address]Dr. Tadeo Smyth Glucose Ql (U) Negative Normal NEGATIVE [facility] Comment on above: Performed By: #### SANDRO MERCHANTRO ####[facility] Simntggzct942[address] [place], [place] [address]Dr. Tadeo Smyth Hemoglobin Ql (U) TRACE-INTACT Abnormal NEGATIVE [facility] Comment on above: Performed By: #### SANDRO MERCHANTRO ####[facility] Exxskqhhkb034[address] [place], [place] [address]Dr. Tadeo Smyth Ketones Ql (U) Negative Normal NEGATIVE [facility] Comment on above: Performed By: #### SANDRO MERCHANTRO ####[facility] Ehrktjqlby[address] [place], [place] [address]Dr. Tadeo Smyth LEUKOCYTES SMALL Abnormal NEGATIVE [facility] Comment on above: Performed By: #### SANDRO MERCHANTRO ####[facility] Unglyacfaq[address] [place] [address]Dr. Tadeo Smyth Nitrite Ql (U) Negative Normal NEGATIVE [facility] Comment on above: Performed By: #### SANDRO MERCHANTRO ####[facility] Tbrminngku[address] [place] [address]Dr. Tadeo Smyth pH (U) 6.0 [pH] Normal 5-9 [facility] Comment on above: Performed By: #### SANDRO MERCHANTRO ####[facility] Ejpsusrzuv[address] [place], [place] [address]Dr. Tadeo Smyth SPEC GRAVITY 1.020 Normal 1.005-<=1.0 25 [facility] Comment on above: Performed By: #### SANDRO MERCHANTRO ####[facility] Nslmhmqofk[address] [place], [place] [address]Dr. Tadeo Smyth UA PROTEIN Negative Normal NEGATIVE/ TRACE [facility] Comment on above: Performed By: #### SANDRO MERCHANTRO ####[facility] Wdbstqicoq17[address] [place], [place] [address]Dr. Tadeo Smyth UR MICRO IND INDICATED Normal [facility] Comment on above: Performed By: #### SANDRO MERCHANTRO ####[facility] Pazzmcumvt94[address] [place], [place] [address]Dr. Tadeo Smyth Urobilinogen Qn (U) 0.2 {Benito'U}/dL Normal 0.2 - 1. 0 [facility] Comment on above: Performed By: #### SANDRO MERCHANTRO ####[facility] Eaqrftzgpt397[address] [place], [place] [address]Dr. Tadeo Smyth LIPASEon 06-06-2022 Lipase [Catalytic activity/Vol] 100.0 U/L Normal 73.0-393.0 [facility] Comment on above: Performed By: #### A KEITH MARTÍNEZ ####[facility] [address] [place] [address]Dr. Tadeo Smyth PROF 14(COMP METB)on 022 Albumin [Mass/Vol] 3.3 g/dL Critically low 3.4-5.0 [facility] Comment on above: Performed By: #### C MP ####[facility] [address]eqr4[address] [place] [address]Dr. Tadeo Smyth Albumin/Globulin [Mass ratio] 0.9 {ratio} Normal [facility] Comment on above: Performed By: #### C MP ####[facility] Yajwymxrop[address] [place], [place] [address]Dr. Tadeo Smyth ALP [Catalytic activity/Vol] 140 U/L Critically high 46-116 [facility] Comment on above: Performed By: #### C MP ####[facility] Bcjdhgqimw[address] [place], [place] [address]Dr. Tadeo Smyth ALT [Catalytic activity/Vol] 23 U/L Normal 14-59 [facility] Comment on above: Performed By: #### C MP ####[facility] Jznnkvhyqs[address] [place], [place] [address]Dr. Tadeo Smyth Anion gap [Moles/Vol] 11.6 mmol/L Normal Th [facility] Comment on above: Performed By: #### C MP ####[facility] Gzyqufetuc106[address] [place], [place] [address]Dr. Tadeo Smyth AST [Catalytic activity/Vol] 18 U/L Normal 15-37 [facility] Comment on above: Performed By: #### C MP ####[facility] Hnjzafddpf[address] [place], [place] [address]Dr. Tadeo Smyth Bilirubin [Mass/Vol] 0.2 mg/dL Normal 0.2-1.0 [facility] Comment on above: Performed By: #### C MP ####[facility] Tzxydasnjz996[address] [place], [place] [address]Dr. Tadeo Smyth Calcium [Mass/Vol] 8.8 mg/dL Normal 8.5-10.1 [facility] Comment on above: Performed By: #### C MP ####[facility] [address]ic[address]xwtbu[address] [place] [address]Dr. Tadeo Smyth Chloride [Moles/Vol] 109 mmol/L Critically high 98-107 [facility] Comment on above: Performed By: #### C MP ####[facility] Ijmhwpsbuc4[address] [place] [address]Dr. Tadeo Smyth CO2 [Moles/Vol] 26.3 mmol/L Normal 21.0-32.0 [facility] Comment on above: Performed By: #### C MP ####[facility] Ktaubfrqxb[address] [place], [place] [address]Dr. Tadeo Smyth Creatinine [Mass/Vol] 0.81 mg/dL Normal 0.55-1.02 [facility] Comment on above: Performed By: #### C MP ####[facility] Gzacuugtyn[address] [place], [place] [address]Dr. Tadeo Smyth EGFR-AF [place] ISLANDER >60 Normal >=60 [facility] Comment on above: Performed By: #### C MP ####[facility] Uffejivqjl194[address] [place], [place] [address]Dr. Tadeo Smyth EGFR-NON AF [place]ER >60 Normal >=60 [facility] Comment on above: Performed By: #### C MP ####[facility] Kbutyatmqe[address] [place], [place] [address]Dr. Tadeo Smyth Globulin (S) [Mass/Vol] 3.7 g/dL Normal [facility] Comment on above: Performed By: #### C MP ####[facility] Gvxskrqzdy[address] [place], [place] [address]Dr. Tadeo Smyth Glucose [Mass/Vol] 90 mg/dL Normal 74-106 [facility] Comment on above: Performed By: #### C MP ####[facility] Qkkbdfokwj189[address] [place], [place] [address]Dr. Tadeo Smyth Potassium [Moles/Vol] 3.9 mmol/L Normal 3.5-5.1 [facility] Comment on above: Performed By: #### C MP ####[facility] [address]ojr[address] [place] [address]Dr. Tadeo Smyth Protein [Mass/Vol] 7.0 g/dL Normal 6.4-8.2 [facility] Comment on above: Performed By: #### C MP ####[facility] [address] [place] [address]Dr. Margotnicole Haja Sodium [Moles/Vol] 143 mmol/L Normal 136-145 [facility] Comment on above: Performed By: #### C MP ####[facility] T[address]ftwcuog[address] [place] [address]Dr. Tadeo Haja Urea nitrogen [Mass/Vol] 12.0 mg/dL Normal 7.0-18.0 [facility] Comment on above: Performed By: #### C MP ####[facility] Tzzfkflhio[address] [place], [place] [address]Dr. Tadeo Smyth Urea nitrogen/Creatinine [Mass ratio] 14.8 mg/mg Normal [facility] Comment on above: Performed By: #### C MP ####[facility] Zqvsyahjiw[address] [place], [place] [address]Dr. Tadeo Smyth URINE MICROSCOPIC ONLYon BACTERIA LARGE Abnormal NONE SEEN [facility] Comment on above: Performed By: #### SANDRO MERCHANTRO ####[facility] Vpzuwsyxvo[address] [place], [place] [address]Dr. Tadeo Smyth Bacteria identified Cx Nom (U) INDICATED Normal [facility] Comment on above: Performed By: #### SANDRO MERCHANTRO ####[facility] [address] [place] [address]Dr. Tadeo Smyth CAST NONE SEEN Normal NONE SEEN [facility] Comment on above: Performed By: #### SANDRO MERCHANTRO ####[facility] [address]dtxcilya[address] [place], [place] [address]Dr. Tadeo Smyth Crystals LM Nom (Urine sed) NONE SEEN Normal NONE SEEN [facility] Comment on above: Performed By: #### SANDRO MERCHANTRO ####[facility] [address] [place] [address]Dr. Tadeo Smyth Epithelial cells LM Ql (Urine sed) RARE Normal NONE SEEN /RARE The [facility] Comment on above: Performed By: #### KAROL MERCHANT ####[facility] [address] [place] [address]Dr. Tadeo Smyth MUCOUS TRACE Abnormal NONE SEEN The [facility] Comment on above: Performed By: #### KAROL MERCHANT ####[facility] [address]rdq[address] [place] [address]Dr. Tadeo Haja RBC 0-2 Normal 0-2 [facility] Comment on above: Performed By: #### KAROL MERCHANT ####[facility] Ukhzh[address] [place], [place] [address]Dr. Tadeo Smyth WBC 2-5 Abnormal NONE SEEN The [facility] Comment on above: Performed By: #### KAROL MERCHANT ####[facility] Vwcqbvulrf[address] [place], [place] [address]Dr. Tadeo Smyth AMYLASEon 06-04-2022 Amylase [Catalytic activity/Vol] 61 U/L Normal 25-115 The [facility] Comment on above: Performed By: #### A MY, CMP, LIPA ####[facility] Wfckpvnfxe[address] [place], [place] [address]Dr. Tadeo Smyth CBC AUTO DIFFon 06-04-2022 BASO # 0.0 103/ul Normal 0.0-0.1 The [facility] Comment on above: Performed By: #### C BC ####[facility] Qwyjlfsmsg[address] [place], [place] [address]Dr. Tadeo Haja Basophils/100 WBC (Bld) 0.5 % Normal 0.2-2.0 The [facility] Comment on above: Performed By: #### C BC ####[facility] Qddboapwjw[address] [place], [place] [address]Dr. Margotnicole Smyth EO # 0.3 103/ul Normal 0.0-0.7 The [facility] Comment on above: Performed By: #### C BC ####[facility] Jlknptrgdp[address] [place], [place] [address]Dr. Tadeo Smyth Eosinophils/100 WBC (Bld) 4.7 % Normal 0.9-7.0 The [facility] Comment on above: Performed By: #### C BC ####[facility] Shabliigxa[address] [place], [place] [address]Dr. Tadeo Smyth Erythrocyte distribution width (RBC) [Ratio] 13.2 % Normal 11.0-15.0 The [facility] Comment on above: Performed By: #### C BC ####[facility] Dcacwvezek[address] [place], [place] [address]Dr. Tadeo Smyth Hematocrit (Bld) [Volume fraction] 36.9 % Normal 36.0-48.0 The [facility] Comment on above: Performed By: #### C BC ####[facility] Wbbrgptwra[address] [place], [place] [address]Dr. Tadeo Smyth Hemoglobin (Bld) [Mass/Vol] 11.9 g/dL Critically low 12.0-16.0 The [facility] Comment on above: Performed By: #### C BC ####[facility] Hgapichkkq[address] [place], [place] [address]Dr. Tadeo Smyth IG # 0.01 10e3/ul Normal 0.00-0.03 The [facility] Comment on above: Performed By: #### C BC ####[facility] Guxzncxany[address] [place], [place] [address]Dr. Tadeo Smyth IG % 0.2 % Normal 0.0-0.5 The [facility] Comment on above: Performed By: #### C BC ####[facility] Fjhpbijfnf[address] [place], [place] [address]Dr. Tadeo Smyth LYMPH # 2.3 103/ul Normal 1.2-3.8 The [facility] Comment on above: Performed By: #### C BC ####[facility] Fbfejfibfj0[address] [place], [place] [address]Dr. Tadeo Smyth Lymphocytes/100 WBC (Bld) 37.3 % Normal 20.5-60.0 The [facility] Comment on above: Performed By: #### C BC ####[facility] [address] [place] [id number]. Tadeo Smyth MANUAL DIFF REQ NO Normal The [facility] Comment on above: Performed By: #### C BC ####[facility] [address]xtc[address] [place] [id number]. Tadeo Smyth MCH (RBC) [Entitic mass] 29.0 pg Normal 26.7-34.0 The [facility] Comment on above: Performed By: #### C BC ####[facility] Rdavryvyvw[address] [place] [address]Dr. Tadeo Smyth MCHC (RBC) [Mass/Vol] 32.2 g/dL Normal 29.9-35.2 The [facility] Comment on above: Performed By: #### C BC ####[facility] Urgccvimjy[address] [place] [address]Dr. Tadeo Haja MCV (RBC) [Entitic vol] 90.0 fL Normal 81.0-99.0 The [facility] Comment on above: Performed By: #### C BC ####[facility] Wsaajxteek50[address] [place], [place] [address]Dr. Tadeo Haja MONO # 0.4 103/ul Normal 0.3-0.8 The [facility] Comment on above: Performed By: #### C BC ####[facility] Nddqqozfzx[address] [place], [place] [address]Dr. Margotnicole Smyth Monocytes/100 WBC (Bld) 6.8 % Normal 1.7-12.0 The [facility] Comment on above: Performed By: #### C BC ####[facility] Awejtvjogw[address] [place], [place] [address]Dr. Tadeo Smyth NEUT # 3.2 103/ul Normal 1.4-6.5 The [facility] Comment on above: Performed By: #### C BC ####[facility] Qqnhzilrip99[address] [place], [place] [address]Dr. Tadeo Smyth Neutrophils/100 WBC (Bld) 50.5 % Normal 43.0-75.0 The [facility] Comment on above: Performed By: #### C BC ####[facility] [address] [place] [address]Dr. Tadeo Smyth Platelet mean volume (Bld) [Entitic vol] 8.9 fL Critically low 9.5-13.5 The [facility] Comment on above: Performed By: #### C BC ####[facility] [address]vesd[address] [place] [address]Dr. Tadeo Smyth PLT 387 103/ul Normal 150-450 The [facility] Comment on above: Performed By: #### C BC ####[facility] Qwlcrlhrxk[address] [place] [address]Dr. Tadeo Haja RBC 4.10 106/ul Critically low 4.20-5.40 [facility] Comment on above: Performed By: #### C BC ####[facility] [address] [place] [address]Dr. Tadeo Smyth WBC 6.2 103/ul Normal 4.0-11.0 [facility] Comment on above: Performed By: #### C BC ####[facility] Dxfcppjnbe25[address] [place], [place] [address]Dr. Tadeo Smyth CT ABD/PELV W CONon 06-04-[address] ABD/PELV W CON Normal The [facility] ER URINE PROFILEon 2 Bilirubin Ql (U) Negative Normal NEGATIVE The [facility] Comment on above: Performed By: #### SANDRO MERCHANTRO ####[facility] Rzzuebxxmb[address] [place], [place] [address]Dr. Tadeo Smyth Clarity (U) CLEAR Normal CLEAR The [facility] Comment on above: Performed By: #### SANDRO MERCHANTRO ####[facility] [address]sc[address] [place] [id number]. Tadeo Smyth Color (U) LT. YELLOW Normal YELLOW The [facility] Comment on above: Performed By: #### SANDRO MERCHANTRO ####[facility] Tylolrdgcq[address] [place], [place] [address]Dr. Tadeo Smyth ERUAHD A micrscopic examina tion will be performed if indicated. Normal The [facility] Comment on above: Performed By: #### KAROL MERCHANT ####[facility] [address]jvpud[address] [place] [address]Dr. Tadeo Smyth Glucose Ql (U) Negative Normal NEGATIVE The [facility] Comment on above: Performed By: #### KAROL MERCHANT ####[facility] C[address]yknzzqa[address] [place] [address]Dr. Tadeo Smyth Hemoglobin Ql (U) TRACE-INTACT Abnormal NEGATIVE The [facility] Comment on above: Performed By: #### KAROL MERCHANT ####[facility] X[address]urpfa[address] [place] [address]Dr. Tadeo Smyth Ketones Ql (U) Negative Normal NEGATIVE The [facility] Comment on above: Performed By: #### KAROL MERCHANT ####[facility] Ykuwflzrta[address] [place], [place] [address]Dr. Tadeo Smyth LEUKOCYTES Negative Normal NEGATIVE [facility] Comment on above: Performed By: #### KAROL MERCHANT ####[facility] Fqqjvwshcp[address] [place], [place] [address]Dr. Margotnicole Haja Nitrite Ql (U) Negative Normal NEGATIVE The [facility] Comment on above: Performed By: #### KAROL MERCHANT ####[facility] Gdkgcxngyu[address] [place], [place] [address]Dr. Tadeo Smyth pH (U) 6.5 [pH] Normal 5-9 The [facility] Comment on above: Performed By: #### KAROL MERCHANT ####[facility] Zbhdmwpxdr[address] [place], [place] [address]Dr. Tadeo Smyth SPEC GRAVITY 1.015 Normal 1.005-<=1.0 25 The [facility] Comment on above: Performed By: #### KAROL MERCHANT ####[facility] Dckpvddvxa[address] [place], [place] [address]Dr. Tadeo Smyth UA PROTEIN Negative Normal NEGATIVE/ TRACE The [facility] Comment on above: Performed By: #### KAROL MERCHANT ####[facility] Hyhxuvnjzk[address] [place], [place] [address]Dr. Tadeo Smyth UR MICRO IND INDICATED Normal [facility] Comment on above: Performed By: #### KAROL MERCHANT ####[facility] [address] [place] [address]Dr. Tadeo Smyth Urobilinogen Qn (U) 0.2 {Benito'U}/dL Normal 0.2 - 1. 0 [facility] Comment on above: Performed By: #### KAROL MERCHANT ####[facility] [address]qmmrm[address] [place] [address]Dr. Tadeo Smyth LIPASEon 06-04-2022 Lipase [Catalytic activity/Vol] 81.0 U/L Normal 73.0-393.0 The [facility] Comment on above: Performed By: #### A MY, CMP, LIPA ####[facility] Fxensauutm[address] [place], [place] [address]Dr. Tadeo Smyth PROF 14(COMP METB)on 022 Albumin [Mass/Vol] 3.6 g/dL Normal 3.4-5.0 [facility] Comment on above: Performed By: #### A MY, CMP, LIPA ####[facility] J[address]rmux[address] [place] [address]Dr. Tadeo Smyth Albumin/Globulin [Mass ratio] 1.0 {ratio} Normal [facility] Comment on above: Performed By: #### A MY, CMP, LIPA ####[facility] Jpoumpvwad[address] [place], [place] [address]Dr. Tadeo Smyth ALP [Catalytic activity/Vol] 150 U/L Critically high 46-116 The [facility] Comment on above: Performed By: #### A MY, CMP, LIPA ####[facility] [address]orlz[address] [place] [address]Dr. Tadeo Smyth ALT [Catalytic activity/Vol] 23 U/L Normal 14-59 The [facility] Comment on above: Performed By: #### A MY, CMP, LIPA ####[facility] I[address]fhayo[address] [place] [address]Dr. Tadeo Smyth Anion gap [Moles/Vol] 13.2 mmol/L Normal Th e [facility] Comment on above: Performed By: #### A MY, CMP, LIPA ####[facility] Ymtxexnxru[address] [place] [address]Dr. Tadeo Smyth AST [Catalytic activity/Vol] 12 U/L Critically low 15-37 The [facility] Comment on above: Performed By: #### A MY, CMP, LIPA ####[facility] Wccfjpirue[address] [place], [place] [address]Dr. Tadeo Smyth Bilirubin [Mass/Vol] 0.1 mg/dL Critically low 0.2-1.0 The [facility] Comment on above: Performed By: #### A MY, CMP, LIPA ####[facility] Lxmrsujkvh[address] [place], [place] [address]Dr. Tadeo Smyth Calcium [Mass/Vol] 9.0 mg/dL Normal 8.5-10.1 The [facility] Comment on above: Performed By: #### A MY, CMP, LIPA ####[facility] Wyvjiqbcjk[address] [place], [place] [address]Dr. Tadeo Smyth Chloride [Moles/Vol] 104 mmol/L Normal 98-107 The [facility] Comment on above: Performed By: #### A MY, CMP, LIPA ####[facility] Ioqrohrwmo[address] [place], [place] [address]Dr. Tadeo Smyth CO2 [Moles/Vol] 26.6 mmol/L Normal 21.0-32.0 The [facility] Comment on above: Performed By: #### A MY, CMP, LIPA ####[facility] Mltmyhkjsa[address] [place], [place] [address]Dr. Tadeo Smyth Creatinine [Mass/Vol] 0.97 mg/dL Normal 0.55-1.02 The [facility] Comment on above: Performed By: #### A MY, CMP, LIPA ####[facility] [address]wvwbztrq[address] [place], [place] [address]Dr. Tadeo Smyth EGFR-AF [place] >60 Normal >=60 The [facility] Comment on above: Performed By: #### A MY, CMP, LIPA ####[facility] [address] [place] [address]Dr. Tadeo Smyth EGFR-NON AF [place] 60 mL/min/1.73m2 Normal >=60 The [facility] Comment on above: Performed By: #### A MY, CMP, LIPA ####[facility] [address]bsgkk[address] [place] [address]Dr. Tadeo Smyth Globulin (S) [Mass/Vol] 3.7 g/dL Normal The [facility] Comment on above: Performed By: #### A MY, CMP, LIPA ####[facility] [address]yeqa[address] [place] [address]Dr. Tadeo Smyth Glucose [Mass/Vol] 109 mg/dL Critically high 74-106 T [facility] Comment on above: Performed By: #### A MY, CMP, LIPA ####[facility] X[address]qdljqsj[address] [place] [address]Dr. Tadeo Smyth Potassium [Moles/Vol] 3.8 mmol/L Normal 3.5-5.1 The [facility] Comment on above: Performed By: #### A MY, CMP, LIPA ####[facility] [address]kkgqgqn5[address] [place] [address]Dr. Tadeo Smyth Protein [Mass/Vol] 7.3 g/dL Normal 6.4-8.2 The [facility] Comment on above: Performed By: #### A MY, CMP, LIPA ####[facility] F[address]ct[address]vb4[address] [place] [address]Dr. Tadeo Smyth Sodium [Moles/Vol] 140 mmol/L Normal 136-145 The [facility] Comment on above: Performed By: #### A MY, CMP, LIPA ####[facility] [address]yzwp[address]nsd035[address] [place] [address]Dr. Tadeo Smyth Urea nitrogen [Mass/Vol] 21.0 mg/dL Critically high 7.0-18.0 The [facility] Comment on above: Performed By: #### A MY, CMP, LIPA ####[facility] [address]odpsu[address] [place] [address]Dr. Tadeo Smyth Urea nitrogen/Creatinine [Mass ratio] 21.6 mg/mg Normal The [facility] Comment on above: Performed By: #### A MY, CMP, LIPA ####[facility] [address]wo[address] [place] [address]Dr. Tadeo Smyth URINE MICROSCOPIC ONLYon BACTERIA NONE SEEN Normal NONE SEEN The [facility] Comment on above: Performed By: #### Matthew FRANCISCO, UMICRO ####[facility] [address] [place] [address]Dr. Tadeo Smyth Bacteria identified Cx Nom (U) NOT INDICATED Normal The [facility] Comment on above: Performed By: #### E RUYovanny, UMICRO ####[facility] [address]xhfp[address] [place] [address]Dr. Tadeo Smyth CAST NONE SEEN Normal NONE SEEN The [facility] Comment on above: Performed By: #### E NOLAN UMICRO ####[facility] Ejrrtmyume[address] [place], [place] [address]Dr. Tadeo Smyth Crystals LM Nom (Urine sed) NONE SEEN Normal NONE SEEN The [facility] Comment on above: Performed By: #### Matthew RUYovanny UMICRO ####[facility] Mywzcmgidr[address] [place], [place] [address]Dr. Tadeo Smyth Epithelial cells LM Ql (Urine sed) FEW Abnormal NONE SEEN /RARE The [facility] Comment on above: Performed By: #### E NOLAN UMICRO ####[facility] Rdignywvbg[address] [place], [place] [address]Dr. Tadeo Smyth MUCOUS NONE SEEN Normal NONE SEEN The [facility] Comment on above: Performed By: #### E RUYovanny, UMICRO ####[facility] Khurxssawb[address] [place] [address]Dr. Tadeo Smyth RBC 0-2 Normal 0-2 The [facility] Comment on above: Performed By: #### E RUYovanny, UMICRO ####[facility] Fziqimsakv[address] [place] [address]Dr. Tadeo Smyth WBC NONE SEEN Normal NONE SEEN The [facility] Comment on above: Performed By: #### Matthew RUYovanny UMICRO ####[facility] Hdqcemscgn[address] [place] [address]Dr. Tadeo Smyth MICRO OTHER TESTSOrdered By: Guillermo Rocha on 04-29-2022 Fecal WBC Lactoferrin Negative (04/29/22 8:00 AM) Normal Negative [facility] [place] CULTURE URINEon 03-31-2022 CULTURE URINE Normal The [facility] Comment on above: Performed By: #### U RCX ####[facility] Jnpmcahxlc[address] [place], [place] [address]Dr. Tadeo Smyth CBC AUTO DIFFon 03-30-2022 BASO # 0.0 103/ul Normal 0.0-0.1 The [facility] Comment on above: Performed By: #### C BC ####[facility] Nfhlhtweoh[address] [place], [place] [address]Dr. Tadeo Smyth Basophils/100 WBC (Bld) 0.4 % Normal 0.2-2.0 The [facility] Comment on above: Performed By: #### C BC ####[facility] Foedkwldis[address] [place], [place] [address]Dr. Tadeo Smyth EO # 0.3 103/ul Normal 0.0-0.7 The [facility] Comment on above: Performed By: #### C BC ####[facility] Gngibulgcy[address] [place], [place] [address]Dr. Tadeo Smyth Eosinophils/100 WBC (Bld) 5.1 % Normal 0.9-7.0 The [facility] Comment on above: Performed By: #### C BC ####[facility] Lygqjtqrfk[address] [place], [place] [address]Dr. Tadeo Smyth Erythrocyte distribution width (RBC) [Ratio] 12.8 % Normal 11.0-15.0 The [facility] Comment on above: Performed By: #### C BC ####[facility] Guucocrbmj[address] [place], [place] [address]Dr. Tadeo Smyth Hematocrit (Bld) [Volume fraction] 36.4 % Normal 36.0-48.0 [facility] Comment on above: Performed By: #### C BC ####[facility] [address] [place], [place] [address]Dr. Tadeo Smyth Hemoglobin (Bld) [Mass/Vol] 12.0 g/dL Normal 12.0-16.0 [facility] Comment on above: Performed By: #### C BC ####[facility] [address]qh[address]om[address] [place] [address]Dr. Tadeo Smyth IG # 0.02 10e3/ul Normal 0.00-0.03 [facility] Comment on above: Performed By: #### C BC ####[facility] [address] [place] [address]Dr. Tadeo Smyth IG % 0.4 % Normal 0.0-0.5 [facility] Comment on above: Performed By: #### C BC ####[facility] Efsvdponzo[address] [place], [place] [address]Dr. Tadeo Smyth LYMPH # 1.4 103/ul Normal 1.2-3.8 [facility] Comment on above: Performed By: #### C BC ####[facility] Bavurvgsec[address] [place], [place] [address]Dr. Tadeo Smyth Lymphocytes/100 WBC (Bld) 25.5 % Normal 20.5-60.0 [facility] Comment on above: Performed By: #### C BC ####[facility] Njofzwytxc[address] [place], [place] [address]Dr. Tadeo Smyth MANUAL DIFF REQ NO Normal [facility] Comment on above: Performed By: #### C BC ####[facility] Ddxfqxkhfx[address] [place], [place] [address]Dr. Tadoe Smyth MCH (RBC) [Entitic mass] 29.1 pg Normal 26.7-34.0 [facility] Comment on above: Performed By: #### C BC ####[facility] Umfjglwcrc[address] [place], [place] [address]Dr. Tadeo Smyth MCHC (RBC) [Mass/Vol] 33.0 g/dL Normal 29.9-35.2 The [facility] Comment on above: Performed By: #### C BC ####[facility] Rsjqmfzpxl[address] [place], [place] [address]Dr. Tadeo Smyth MCV (RBC) [Entitic vol] 88.3 fL Normal 81.0-99.0 [facility] Comment on above: Performed By: #### C BC ####[facility] [address]zqnuypf[address] [place] [address]DrNeo Smyth MONO # 0.4 103/ul Normal 0.3-0.8 [facility] Comment on above: Performed By: #### C BC ####[facility] Yyiygudwbw[address] [place], [place] [address]Dr. Tadeo Smyth Monocytes/100 WBC (Bld) 7.1 % Normal 1.7-12.0 [facility] Comment on above: Performed By: #### C BC ####[facility] Weydcowxua[address] [place], [place] [address]Dr. Tadeo Smyth NEUT # 3.4 103/ul Normal 1.4-6.5 The [facility] Comment on above: Performed By: #### C BC ####[facility] Upjhsbxglz[address]50[address] [place], [place] [address]Dr. Tadeo Smyth Neutrophils/100 WBC (Bld) 61.5 % Normal 43.0-75.0 The [facility] Comment on above: Performed By: #### C BC ####[facility] Lojeedosoo[address] [place], [place] [address]Dr. Tadeo Haja Platelet mean volume (Bld) [Entitic vol] 8.8 fL Critically low 9.5-13.5 The [facility] Comment on above: Performed By: #### C BC ####[facility] Kyzpmixkdq[address] [place], [place] [address]Dr. Tadeo Haja PLT 324 103/ul Normal 150-450 [facility] Comment on above: Performed By: #### C BC ####[facility] Htwvjupnyx[address] [place], [place] [address]DrNeo Tdaeo Haja RBC 4.12 106/ul Critically low 4.20-5.40 [facility] Comment on above: Performed By: #### C BC ####[facility] Tkabbpzihf[address] [place], [place] [address]Dr. Tadeo Smyth WBC 5.5 103/ul Normal 4.0-11.0 [facility] Comment on above: Performed By: #### C BC ####[facility] Ldfhiqknao[address] [place], [place] [address]Dr. Tadeo Smyth PROF 14(COMP METB)on 022 Albumin [Mass/Vol] 3.1 g/dL Critically low 3.4-5.0 [facility] Comment on above: Performed By: #### C MP ####[facility] Nvyhflwguv[address] [place], [place] [address]DrNeo Smyth Albumin/Globulin [Mass ratio] 0.9 {ratio} Normal [facility] Comment on above: Performed By: #### C MP ####[facility] Tcyntnwktw[address] [place], [place] [address]Dr. Tadeo Smyth ALP [Catalytic activity/Vol] 119 U/L Critically high 46-116 [facility] Comment on above: Performed By: #### C MP ####[facility] Lcyvfwjnsr[address] [place], [place] [address]Dr. Tadeo Smyth ALT [Catalytic activity/Vol] 17 U/L Normal 14-59 [facility] Comment on above: Performed By: #### C MP ####[facility] Njbicbyaak[address] [place], [place] [address]DrNeo Smyth Anion gap [Moles/Vol] 12.0 mmol/L Normal [facility] Comment on above: Performed By: #### C MP ####[facility] Ofyijqoyxn[address] [place], [place] [address]Dr. Tadeo Smyth AST [Catalytic activity/Vol] 16 U/L Normal 15-37 [facility] Comment on above: Performed By: #### C MP ####[facility] [address]ksntiklix[address] [place], [place] [address]DrNeo Smyth Bilirubin [Mass/Vol] 0.4 mg/dL Normal 0.2-1.0 [facility] Comment on above: Performed By: #### C MP ####[facility] [address]htuyjoxn[address] [place], [place] [address]DrNeo Smyth Calcium [Mass/Vol] 8.9 mg/dL Normal 8.5-10.1 [facility] Comment on above: Performed By: #### C MP ####[facility] [address]uih[address] [place] [address]Dr. Tadeo Smyth Chloride [Moles/Vol] 107 mmol/L Normal 98-107 [facility] Comment on above: Performed By: #### C MP ####[facility] [address] [place] [address]Dr. Tadeo Smyth CO2 [Moles/Vol] 26.9 mmol/L Normal 21.0-32.0 [facility] Comment on above: Performed By: #### C MP ####[facility] Txobkctcgh607[address] [place], [place] [address]Dr. Tadeo Smyth Creatinine [Mass/Vol] 0.82 mg/dL Normal 0.55-1.02 [facility] Comment on above: Performed By: #### C MP ####[facility] Xknmsmdion8[address] [place], [place] [address]Dr. Tadeo Smyth EGFR-AF [place]ER >60 Normal >=60 [facility] Comment on above: Performed By: #### C MP ####[facility] Hsvqsqxacu57[address] [place], [place] [address]Dr. Tadeo Smyth EGFR-NON AF [place] >60 Normal >=60 [facility] Comment on above: Performed By: #### C MP ####[facility] Gkmnejecxy075[address] [place], [place] [address]Dr. Tadeo Smyth Globulin (S) [Mass/Vol] 3.5 g/dL Normal [facility] Comment on above: Performed By: #### C MP ####[facility] Dkvotuyh[address] [place] [address]Dr. Tadeo Haja Glucose [Mass/Vol] 104 mg/dL Normal 74-106 [facility] Comment on above: Performed By: #### C MP ####[facility] Xpvbbssxyv4237[address] [place], [place] [address]Dr. Margotnicole Smyth Potassium [Moles/Vol] 3.9 mmol/L Normal 3.5-5.1 [facility] Comment on above: Performed By: #### C MP ####[facility] [address] [place] [id number]. Tadeo Smyth Protein [Mass/Vol] 6.6 g/dL Normal 6.4-8.2 [facility] Comment on above: Performed By: #### C MP ####[facility] Xiumpzuaqw4[address] [place], [place] [address]Dr. Tadeo Smyth Sodium [Moles/Vol] 142 mmol/L Normal 136-145 [facility] Comment on above: Performed By: #### C MP ####[facility] Krsmysduil464[address] [place], [place] [address]Dr. Tadeo Smyth Urea nitrogen [Mass/Vol] 5.0 mg/dL Critically low 7.0-18.0 [facility] Comment on above: Performed By: #### C MP ####[facility] Npwzoriand601[address] [place], [place] [address]Dr. Tadeo Smyth Urea nitrogen/Creatinine [Mass ratio] 6.1 mg/mg Normal [facility] Comment on above: Performed By: #### C MP ####[facility] Omfjkhghfr804[address] [place], [place] [address]Dr. Tadeo Smyth CBC AUTO DIFFon 03-29-2022 BASO # 0.0 103/ul Normal 0.0-0.1 [facility] Comment on above: Performed By: #### C BC ####[facility] Iiytoroxwq95[address] [place], [place] [address]Dr. Tadeo Haja Basophils/100 WBC (Bld) 0.4 % Normal 0.2-2.0 [facility] Comment on above: Performed By: #### C BC ####[facility] Ppvjepkdoe7040[address] [place], [place] [address]Dr. Tadeo Smyth EO # 0.2 103/ul Normal 0.0-0.7 [facility] Comment on above: Performed By: #### C BC ####[facility] Orypmpoabh[address] [place], [place] [address]Dr. Tadeo Haja Eosinophils/100 WBC (Bld) 4.3 % Normal 0.9-7.0 [facility] Comment on above: Performed By: #### C BC ####[facility] [address]obabf[address] [place] [address]Dr. Tadeo Smyth Erythrocyte distribution width (RBC) [Ratio] 12.9 % Normal 11.0-15.0 [facility] Comment on above: Performed By: #### C BC ####[facility] Cjewhueriq819[address] [place], [place] [address]Dr. Margotnicole Haja Hematocrit (Bld) [Volume fraction] 33.8 % Critically low 36.0-48.0 [facility] Comment on above: Performed By: #### C BC ####[facility] Wyimbipcsj0514[address] [place], [place] [address]Dr. Margotnicole Smyth Hemoglobin (Bld) [Mass/Vol] 11.1 g/dL Critically low 12.0-16.0 [facility] Comment on above: Performed By: #### C BC ####[facility] Rtvgnriqes294[address] [place], [place] [address]Dr. Tadeo Smyth IG # 0.01 10e3/ul Normal 0.00-0.03 [facility] Comment on above: Performed By: #### C BC ####[facility] Ulwoiutopf6669[address] [place], [place] [address]Dr. Tadeo Smyth IG % 0.2 % Normal 0.0-0.5 [facility] Comment on above: Performed By: #### C BC ####[facility] Pezvapjafk259[address] [place], [place] [address]Dr. Tadeo Smyth LYMPH # 1.5 103/ul Normal 1.2-3.8 [facility] Comment on above: Performed By: #### C BC ####[facility] Psbfkyzgeq3238[address] [place], [place] [address]Dr. Tadeo Smyth Lymphocytes/100 WBC (Bld) 29.9 % Normal 20.5-60.0 [facility] Comment on above: Performed By: #### C BC ####[facility] Slehimeiop1625[address] [place], [place] [address]Dr. Tadeo Smyth MANUAL DIFF REQ NO Normal [facility] Comment on above: Performed By: #### C BC ####[facility] Jvxyedxwax[address] [place] [address]Dr. Tadeo Haja MCH (RBC) [Entitic mass] 29.3 pg Normal 26.7-34.0 [facility] Comment on above: Performed By: #### C BC ####[facility] Asbliouzbr[address] [place] [address]Dr. Tadeo Smyth MCHC (RBC) [Mass/Vol] 32.8 g/dL Normal 29.9-35.2 [facility] Comment on above: Performed By: #### C BC ####[facility] Lfgsywftgt999[address] [place], [place] [address]DrNeo Smyth MCV (RBC) [Entitic vol] 89.2 fL Normal 81.0-99.0 [facility] Comment on above: Performed By: #### C BC ####[facility] Ajsoglbxgg0065[address] [place], [place] [address]DrNeo Smyth MONO # 0.4 103/ul Normal 0.3-0.8 [facility] Comment on above: Performed By: #### C BC ####[facility] Yffxudtsav1028[address] [place], [place] [address]Dr. Tadeo Smyth Monocytes/100 WBC (Bld) 7.8 % Normal 1.7-12.0 [facility] Comment on above: Performed By: #### C BC ####[facility] Gosgajymwa3740[address] [place], [place] [address]DrNeo Smyth NEUT # 2.8 103/ul Normal 1.4-6.5 [facility] Comment on above: Performed By: #### C BC ####[facility] Jajgaldhkk[address] [place], [place] [address]DrNeo Smyth Neutrophils/100 WBC (Bld) 57.4 % Normal 43.0-75.0 [facility] Comment on above: Performed By: #### C BC ####[facility] Ftioptoexw[address] [place], [place] [address]DrNeo Smyth Platelet mean volume (Bld) [Entitic vol] 8.9 fL Critically low 9.5-13.5 [facility] Comment on above: Performed By: #### C BC ####[facility] Ifshmnewns[address] [place] [address]Dr. Tadeo Smyth PLT 314 103/ul Normal 150-450 [facility] Comment on above: Performed By: #### C BC ####[facility] Rfbzcczbde4[address] [place] [address]Dr. Tadeo Smyth RBC 3.79 106/ul Critically low 4.20-5.40 [facility] Comment on above: Performed By: #### C BC ####[facility] Svywxnsucy[address] [place] [address]Dr. Tadeo Smyth WBC 4.9 103/ul Normal 4.0-11.0 [facility] Comment on above: Performed By: #### C BC ####[facility] Akayvssnii[address] [place] [address]DrNeo Smyth PROF 14(COMP METB)on 022 Albumin [Mass/Vol] 2.8 g/dL Critically low 3.4-5.0 [facility] Comment on above: Performed By: #### C MP ####[facility] B[address]uansn[address] [place] [address]DrNeo Smyth Albumin/Globulin [Mass ratio] 0.8 {ratio} Normal [facility] Comment on above: Performed By: #### C MP ####[facility] Bhqwncsmgt35[address] [place] [address]Dr. Tadeo Smyth ALP [Catalytic activity/Vol] 117 U/L Critically high 46-116 [facility] Comment on above: Performed By: #### C MP ####[facility] Cjesiiuacy[address] [place] [address]DrNeo Smyth ALT [Catalytic activity/Vol] 13 U/L Critically low 14-59 [facility] Comment on above: Performed By: #### C MP ####[facility] Vgdezoxxvh[address] [place] [address]DrNeo Smyth Anion gap [Moles/Vol] 8.7 mmol/L Normal [facility] Comment on above: Performed By: #### C MP ####[facility] Jmwkxduybe39[address] [place] [address]Dr. Tadeo Smyth AST [Catalytic activity/Vol] 12 U/L Critically low 15-37 [facility] Comment on above: Performed By: #### C MP ####[facility] Nfxbfmodwf730[address] [place], [place] [address]Dr. Tadeo Smyth Bilirubin [Mass/Vol] 0.4 mg/dL Normal 0.2-1.0 [facility] Comment on above: Performed By: #### C MP ####[facility] Tzrrihlxdt06[address] [place], [place] [address]Dr. Tadeo Smyth Calcium [Mass/Vol] 8.5 mg/dL Normal 8.5-10.1 [facility] Comment on above: Performed By: #### C MP ####[facility] Nxsrmoxrmv501[address] [place], [place] [address]Dr. Tadeo Smyth Chloride [Moles/Vol] 108 mmol/L Critically high 98-107 [facility] Comment on above: Performed By: #### C MP ####[facility] Snkoiwzrvt9255[address] [place], [place] [address]Dr. Tadeo Smyth CO2 [Moles/Vol] 28.0 mmol/L Normal 21.0-32.0 [facility] Comment on above: Performed By: #### C MP ####[facility] Vooglgwpzc188[address] [place], [place] [address]Dr. Tadeo Smyth Creatinine [Mass/Vol] 0.74 mg/dL Normal 0.55-1.02 [facility] Comment on above: Performed By: #### C MP ####[facility] Pecylcbhql4117[address] [place], [place] [address]Dr. Margotnicole Haja EGFR-AF [place] >60 Normal >=60 [facility] Comment on above: Performed By: #### C MP ####[facility] Xanujjawbd540[address] [place], [place] [address]Dr. Tadeo Smyth EGFR-NON AF [place] >60 Normal >=60 [facility] Comment on above: Performed By: #### C MP ####[facility] Wfyxpexhwf[address] [place] [address]Dr. Tadeo Smyth Globulin (S) [Mass/Vol] 3.4 g/dL Normal [facility] Comment on above: Performed By: #### C MP ####[facility] Gikigfmnll[address] [place] [address]Dr. Tadeo Smyth Glucose [Mass/Vol] 107 mg/dL Critically high 74-106 [facility] Comment on above: Performed By: #### C MP ####[facility] Zwqeabsqtl16[address] [place], [place] [address]Dr. Tadeo Smyth Potassium [Moles/Vol] 3.7 mmol/L Normal 3.5-5.1 [facility] Comment on above: Performed By: #### C MP ####[facility] Lnqvqsfzir1200[address] [place], [place] [address]Dr. Tadeo Smyth Protein [Mass/Vol] 6.2 g/dL Critically low 6.4-8.2 [facility] Comment on above: Performed By: #### C MP ####[facility] Klbjbotzhe8101[address] [place], [place] [address]Dr. Tadeo Smyth Sodium [Moles/Vol] 141 mmol/L Normal 136-145 [facility] Comment on above: Performed By: #### C MP ####[facility] Rjkmvbhron8997[address] [place], [place] [address]Dr. Tadeo Smyth Urea nitrogen [Mass/Vol] 7.0 mg/dL Normal 7.0-18.0 [facility] Comment on above: Performed By: #### C MP ####[facility] Bipglhsvkd624[address] [place], [place] [address]Dr. Tadeo Smyth Urea nitrogen/Creatinine [Mass ratio] 9.5 mg/mg Normal [facility] Comment on above: Performed By: #### C MP ####[facility] Hkafitctsx854[address] [place], [place] [address]Dr. Tadeo Smyth XR KUB 1 VIEWon 03-29-2022 XR KUB 1 VIEW Normal [facility] CBC AUTO DIFFon 03-28-2022 BASO # 0.0 103/ul Normal 0.0-0.1 [facility] Comment on above: Performed By: #### C BC ####[facility] C[address]hjvxwpm[address] [place] [address]Dr. Tadeo Smyth Basophils/100 WBC (Bld) 0.7 % Normal 0.2-2.0 [facility] Comment on above: Performed By: #### C BC ####[facility] Hzvgctynlh8827[address] [place], [place] [address]Dr. Tadeo Smyth EO # 0.2 103/ul Normal 0.0-0.7 [facility] Comment on above: Performed By: #### C BC ####[facility] Chilerpifx8416[address] [place], [place] [address]Dr. Tadeo Smyth Eosinophils/100 WBC (Bld) 3.3 % Normal 0.9-7.0 [facility] Comment on above: Performed By: #### C BC ####[facility] Peohlkjuku756[address] [place], [place] [address]Dr. Tadeo Smyth Erythrocyte distribution width (RBC) [Ratio] 13.2 % Normal 11.0-15.0 [facility] Comment on above: Performed By: #### C BC ####[facility] Zafandylsz[address] [place], [place] [address]Dr. Tadeo Smyth Hematocrit (Bld) [Volume fraction] 34.2 % Critically low 36.0-48.0 [facility] Comment on above: Performed By: #### C BC ####[facility] Qbxzegrqto5469[address] [place], [place] [address]Dr. Tadeo Smyth Hemoglobin (Bld) [Mass/Vol] 10.8 g/dL Critically low 12.0-16.0 [facility] Comment on above: Performed By: #### C BC ####[facility] Xwodpjypwg[address] [place], [place] [address]Dr. Tadeo Smyth IG # 0.01 10e3/ul Normal 0.00-0.03 [facility] Comment on above: Performed By: #### C BC ####[facility] Giiukotsvg1599[address] [place], [place] [address]Dr. Tadeo Smyth IG % 0.2 % Normal 0.0-0.5 [facility] Comment on above: Performed By: #### C BC ####[facility] Vyejtdmlte[address] [place] [address]DrNeo Smyth LYMPH # 1.3 103/ul Normal 1.2-3.8 [facility] Comment on above: Performed By: #### C BC ####[facility] Kymmhkhtui[address] [place] [address]Dr. Tadeo Smyth Lymphocytes/100 WBC (Bld) 28.4 % Normal 20.5-60.0 [facility] Comment on above: Performed By: #### C BC ####[facility] Vwxaugfnmq035[address] [place] [address]DrNeo Smyth MANUAL DIFF REQ NO Normal [facility] Comment on above: Performed By: #### C BC ####[facility] Gzlployqjz55[address] [place] [address]Dr. Margotnicole Smyth MCH (RBC) [Entitic mass] 28.3 pg Normal 26.7-34.0 [facility] Comment on above: Performed By: #### C BC ####[facility] Wmmkplfbhx0[address] [place] [address]Dr. Tadeo Haja MCHC (RBC) [Mass/Vol] 31.6 g/dL Normal 29.9-35.2 [facility] Comment on above: Performed By: #### C BC ####[facility] Fflaihzkoo6[address] [place] [address]DrNeo Margotnicole Smyth MCV (RBC) [Entitic vol] 89.5 fL Normal 81.0-99.0 [facility] Comment on above: Performed By: #### C BC ####[facility] Fpqiixnbzx0258 [place] [address]DrNeo Smyth MONO # 0.3 103/ul Normal 0.3-0.8 [facility] Comment on above: Performed By: #### C BC ####[facility] Pdkuemcuzj8951 [place] [address]DrNeo Smyth Monocytes/100 WBC (Bld) 5.5 % Normal 1.7-12.0 [facility] Comment on above: Performed By: #### C BC ####[facility] Wulcmuekav[address] [place] [address]Dr. Tadeo Smyth NEUT # 2.8 103/ul Normal 1.4-6.5 [facility] Comment on above: Performed By: #### C BC ####[facility] Jnsdmbujzk7[address] [place] [address]DrNeo Frostnicole Haja Neutrophils/100 WBC (Bld) 61.9 % Normal 43.0-75.0 [facility] Comment on above: Performed By: #### C BC ####[facility] Wwkzevmugi66[address] [place], [place] [address]DrNeo Smyth Platelet mean volume (Bld) [Entitic vol] 9.1 fL Critically low 9.5-13.5 [facility] Comment on above: Performed By: #### C BC ####[facility] Fbdwektpvt823[address] [place], [place] [address]Dr. Tadeo Smyth PLT 327 103/ul Normal 150-450 [facility] Comment on above: Performed By: #### C BC ####[facility] Iddarnewll02[address] [place], [place] [address]DrNeo Smyth RBC 3.82 106/ul Critically low 4.20-5.40 [facility] Comment on above: Performed By: #### C BC ####[facility] Bhquviflgr5717[address] [place], [place] [address]DrNeo Smyth WBC 4.5 103/ul Normal 4.0-11.0 [facility] Comment on above: Performed By: #### C BC ####[facility] Aljcjdferv[address] [place], [place] [address]DrNeo Smyth POINT OF CARE GLUCOSEon 07-2 Glucose [Mass/Vol] 84 mg/dL Normal 74-106 [facility] Comment on above: Performed By: #### P OCGLUC ####[facility] Rfeeyxbocp319[address] [place], [place] [address]Dr. Tadeo Smyth PROF 14(COMP METB)on 022 Albumin [Mass/Vol] 2.9 g/dL Critically low 3.4-5.0 [facility] Comment on above: Performed By: #### C MP ####[facility] Fuymfqnfpx9[address] [place] [address]Dr. Tadeo Smyth Albumin/Globulin [Mass ratio] 0.9 {ratio} Normal [facility] Comment on above: Performed By: #### C MP ####[facility] Iauflsmxla17[address] [place], [place] [address]Dr. Tadeo Smyth ALP [Catalytic activity/Vol] 119 U/L Critically high 46-116 [facility] Comment on above: Performed By: #### C MP ####[facility] Rjsutiwjlp9[address] [place], [place] [address]Dr. Tadeo Smyth ALT [Catalytic activity/Vol] 15 U/L Normal 14-59 [facility] Comment on above: Performed By: #### C MP ####[facility] Rdulnsfxwv668[address] [place], [place] [address]Dr. Tadeo Smyth Anion gap [Moles/Vol] 7.9 mmol/L Normal [facility] Comment on above: Performed By: #### C MP ####[facility] Iifznbhmer8[address] [place], [place] [address]Dr. Tadeo Smyth AST [Catalytic activity/Vol] 11 U/L Critically low 15-37 [facility] Comment on above: Performed By: #### C MP ####[facility] Beogruqebb5680[address] [place], [place] [address]Dr. Tadeo Smyth Bilirubin [Mass/Vol] 0.4 mg/dL Normal 0.2-1.0 [facility] Comment on above: Performed By: #### C MP ####[facility] Vscapecdrm83[address] [place], [place] [address]Dr. Tadeo Smyth Calcium [Mass/Vol] 8.7 mg/dL Normal 8.5-10.1 [facility] Comment on above: Performed By: #### C MP ####[facility] Uvhddufaio033[address] [place], [place] [address]Dr. Tadeo Smyth Chloride [Moles/Vol] 109 mmol/L Critically high 98-107 [facility] Comment on above: Performed By: #### C MP ####[facility] Vktrjdtbnb85[address] [place] [address]Dr. Tadeo Smyth CO2 [Moles/Vol] 27.9 mmol/L Normal 21.0-32.0 [facility] Comment on above: Performed By: #### C MP ####[facility] Euxroapbou[address] [place] [address]Dr. Tadeo Smyth Creatinine [Mass/Vol] 0.75 mg/dL Normal 0.55-1.02 [facility] Comment on above: Performed By: #### C MP ####[facility] Mwwqjhwyju[address] [place], [place] [address]Dr. Tadeo Smyth EGFR-AF [place]ER >60 Normal >=60 [facility] Comment on above: Performed By: #### C MP ####[facility] Mljjovokxl150[address] [place], [place] [address]Dr. Tadeo Smyth EGFR-NON AF [place]ER >60 Normal >=60 [facility] Comment on above: Performed By: #### C MP ####[facility] Tlfrqzieqc37[address] [place] [address]Dr. Tadeo Smyth Globulin (S) [Mass/Vol] 3.3 g/dL Normal [facility] Comment on above: Performed By: #### C MP ####[facility] Smtdkhrrjo09[address] [place] [address]Dr. Tadeo Haja Glucose [Mass/Vol] 95 mg/dL Normal 74-106 [facility] Comment on above: Performed By: #### C MP ####[facility] Dpckviukeq8386 [place] [address]Dr. Tadeo Smyth Potassium [Moles/Vol] 3.8 mmol/L Normal 3.5-5.1 [facility] Comment on above: Performed By: #### C MP ####[facility] Cqskkcnhsr[address] [place] [address]Dr. Tadeo Haja Protein [Mass/Vol] 6.2 g/dL Critically low 6.4-8.2 [facility] e [facility] Comment on above: Performed By: #### C MP ####[facility] Zgtirmrgve119[address] [place] [address]Dr. Tadeo Smyth Sodium [Moles/Vol] 141 mmol/L Normal 136-145 [facility] Comment on above: Performed By: #### C MP ####[facility] Oqhhwksxya[address] [place], [place] [address]Dr. Tadeo Smyth Urea nitrogen [Mass/Vol] 8.0 mg/dL Normal 7.0-18.0 [facility] Comment on above: Performed By: #### C MP ####[facility] Jvwcxaxmvx[address] [place], [place] [address]Dr. Tadeo Smyth Urea nitrogen/Creatinine [Mass ratio] 10.7 mg/mg Normal [facility] Comment on above: Performed By: #### C MP ####[facility] Faprpcnizk[address] [place], [place] [address]Dr. Tadeo Smyth UA (CLEAN/CATCH) DIABETES TERRITORY MANAGER/MICRO I F IND.on 03-28-2022 Bilirubin Ql (U) Negative Normal NEGATIVE [facility] Comment on above: Performed By: #### U MARE ICRO ####[facility] Groiexrbig[address] [place], [place] [address]Dr. Tadeo Smyth Clarity (U) SL CLOUDY Abnormal CLEAR [facility] Comment on above: Performed By: #### U MARE UMICRO ####[facility] Znnuwuccts6525[address] [place], [place] [address]Dr. Tadeo Smyth Color (U) LT. YELLOW Normal YELLOW [facility] Comment on above: Performed By: #### U MARE UMICRO ####[facility] Jxkblbsjyg8[address] [place], [place] [address]Dr. Tadeo Smyth Glucose Ql (U) Negative Normal NEGATIVE [facility] Comment on above: Performed By: #### U ACSBLANE UMICRO ####[facility] Tlmuozpqgt70[address] [place], [place] [address]Dr. Tadeo Smyth Hemoglobin Ql (U) TRACE-INTACT Abnormal NEGATIVE [facility] Comment on above: Performed By: #### U ACSBLANE UMICRO ####[facility] [address]ikuqgozmc[address] [place] [address]Dr. Tadeo Smyth Ketones Ql (U) TRACE Abnormal NEGATIVE [facility] Comment on above: Performed By: #### U ACSBLANE UMICRO ####[facility] Zqryhqqsuk[address] [place] [address]Dr. Tadeo Smyth LEUKOCYTES Negative Normal NEGATIVE [facility] Comment on above: Performed By: #### U ACSBLANE UMICRO ####[facility] Fqxrvuiklz[address] [place] [address]Dr. Tadeo Smyth Nitrite Ql (U) Negative Normal NEGATIVE [facility] Comment on above: Performed By: #### U ACSBLANE UMICRO ####[facility] Qvqyiimudc5038 [place] [address]Dr. Tadeo Smyth pH (U) 6.5 [pH] Normal 5-9 [facility] Comment on above: Performed By: #### U MARE UMICRO ####[facility] Fvyfzecydc[address] [place], [place] [address]Dr. Tadeo Smyth SPEC GRAVITY 1.015 Normal 1.005-<=1.0 25 [facility] Comment on above: Performed By: #### Rosita GARVEY UMICRO ####[facility] Szztikualj[address] [place] [address]Dr. Tadeo Smyth UA PROTEIN Negative Normal NEGATIVE/ TRACE The [facility] Comment on above: Performed By: #### U MARE UMICRO ####[facility] Wmzbcnb[address] [place], [place] [address]Dr. Tadeo Smyth UR MICRO IND INDICATED Normal The [facility] Comment on above: Performed By: #### U MARE UMICRO ####[facility] Widgzpgzrb[address] [place], [place] [address]Dr. Tadeo Smyth Urobilinogen Qn (U) 0.2 {Benito'U}/dL Normal 0.2 - 1. 0 [facility] Comment on above: Performed By: #### U ACSBLANE UMICRO ####[facility] [address] [place] [address]Dr. Tadeo Smyth URINE MICROSCOPIC ONLYon BACTERIA MODERATE Abnormal NONE SEEN The [facility] Comment on above: Performed By: #### U MARE UMICRO ####[facility] Is[address] [place] [address]Dr. Tadeo Smyth Bacteria identified Cx Nom (U) INDICATED Normal The [facility] Comment on above: Performed By: #### U MARE UMICRO ####[facility] W[address]mr[address] [place] [address]Dr. Tadeo Smyth CAST NONE SEEN Normal NONE SEEN The [facility] Comment on above: Performed By: #### U MARE ICRO ####[facility] Lioehnswos[address] [place] [address]Dr. Tadeo Smyth Crystals LM Nom (Urine sed) NONE SEEN Normal NONE SEEN The [facility] Comment on above: Performed By: #### U MARE ICRO ####[facility] Ecyxcr[address]om[address] [place] [address]Dr. Tadeo Smyth Epithelial cells LM Ql (Urine sed) RARE Normal NONE SEEN /RARE The [facility] Comment on above: Performed By: #### U MARE ICRO ####[facility] Cywakcbpuz[address] [place] [address]Dr. Tadeo Smyth MUCOUS NONE SEEN Normal NONE SEEN The [facility] Comment on above: Performed By: #### U MARE ICRO ####[facility] Nhxmncupov[address] [place] [address]Dr. Tadeo Smyth RBC NONE SEEN Abnormal 0-2 The [facility] Comment on above: Performed By: #### U MARE ICRO ####[facility] Adypqfpfoy[address] [place], [place] [address]Dr. Tadeo Smyth WBC 2-5 Abnormal NONE SEEN The [facility] Comment on above: Performed By: #### U MARE UMICRO ####[facility] Edrftrbdrk[address] [place], [place] [address]Dr. Tadeo Smyth XR ABD FLAT UP_PA Kasey 03-28 XR ABD FLAT UP_PA CH Normal The [facility] CBC AUTO DIFFon 03-27-2022 BASO # 0.0 103/ul Normal 0.0-0.1 The [facility] Comment on above: Performed By: #### C BC ####[facility] Upfptzxpil[address] [place], [place] [address]Dr. Tadeo Smyth Basophils/100 WBC (Bld) 0.5 % Normal 0.2-2.0 The [facility] Comment on above: Performed By: #### C BC ####[facility] Axnafuctpi[address] [place], [place] [address]Dr. Tadeo Smyth EO # 0.2 103/ul Normal 0.0-0.7 The [facility] Comment on above: Performed By: #### C BC ####[facility] Erlnaqcgqd[address] [place], [place] [address]Dr. Tadeo Smyth Eosinophils/100 WBC (Bld) 3.2 % Normal 0.9-7.0 The [facility] Comment on above: Performed By: #### C BC ####[facility] Kzrmzyzpef[address] [place], [place] [address]Dr. Tadeo Smyth Erythrocyte distribution width (RBC) [Ratio] 13.1 % Normal 11.0-15.0 The [facility] Comment on above: Performed By: #### C BC ####[facility] Oldkqmxond[address] [place], [place] [address]Dr. Tadeo Smyth Hematocrit (Bld) [Volume fraction] 34.8 % Critically low 36.0-48.0 The [facility] Comment on above: Performed By: #### C BC ####[facility] Nkpnhoymwa[address] [place], [place] [address]Dr. Tadeo Smyth Hemoglobin (Bld) [Mass/Vol] 11.3 g/dL Critically low 12.0-16.0 The [facility] Comment on above: Performed By: #### C BC ####[facility] Hzoqiiburn[address] [place], [place] [address]Dr. Tadeo Smyth IG # 0.01 10e3/ul Normal 0.00-0.03 The [facility] Comment on above: Performed By: #### C BC ####[facility] Dmjbcugeeq[address] [place] [address]Dr. Tadeo Smyth IG % 0.2 % Normal 0.0-0.5 The [facility] Comment on above: Performed By: #### C BC ####[facility] Lfvypteejk[address] [place] [address]Dr. Tadeo Smyth LYMPH # 1.6 103/ul Normal 1.2-3.8 The [facility] Comment on above: Performed By: #### C BC ####[facility] Udifcwcpog[address] [place], [place] [address]Dr. Tadeo Haja Lymphocytes/100 WBC (Bld) 29.1 % Normal 20.5-60.0 [facility] Comment on above: Performed By: #### C BC ####[facility] Dmthycamip[address] [place], [place] [address]Dr. Tadeo Smyth MANUAL DIFF REQ NO Normal The [facility] Comment on above: Performed By: #### C BC ####[facility] Rqphqzuqbi64[address] [place], [place] [address]Dr. Tadeo Smyth MCH (RBC) [Entitic mass] 29.1 pg Normal 26.7-34.0 The [facility] Comment on above: Performed By: #### C BC ####[facility] Whsqavsjkz[address] [place], [place] [address]Dr. Tadeo Smyth MCHC (RBC) [Mass/Vol] 32.5 g/dL Normal 29.9-35.2 The [facility] Comment on above: Performed By: #### C BC ####[facility] Uayhwuwlsh[address] [place], [place] [address]Dr. Tadeo Smyth MCV (RBC) [Entitic vol] 89.7 fL Normal 81.0-99.0 The [facility] Comment on above: Performed By: #### C BC ####[facility] Vdteivtqhc[address] [place], [place] [address]Dr. Tadeo Haja MONO # 0.3 103/ul Normal 0.3-0.8 The [facility] Comment on above: Performed By: #### C BC ####[facility] Y[address]lek[address] [place] [id number]. Tadeo Smyth Monocytes/100 WBC (Bld) 5.7 % Normal 1.7-12.0 The [facility] Comment on above: Performed By: #### C BC ####[facility] [address]fr[address] [place] [address]Dr. Tadeo Smyth NEUT # 3.5 103/ul Normal 1.4-6.5 The [facility] Comment on above: Performed By: #### C BC ####[facility] Zivcadftpy264[address] [place] [address]Dr. Tadeo Smyth Neutrophils/100 WBC (Bld) 61.3 % Normal 43.0-75.0 [facility] Comment on above: Performed By: #### C BC ####[facility] Mnjw[address]zudt[address] [place] [address]Dr. Tadeo Smyth Platelet mean volume (Bld) [Entitic vol] 9.1 fL Critically low 9.5-13.5 [facility] Comment on above: Performed By: #### C BC ####[facility] Dlziiqxiwr[address] [place] [address]Dr. Tadeo Smyth PLT 355 103/ul Normal 150-450 The [facility] Comment on above: Performed By: #### C BC ####[facility] Jqbxqpjtrd97[address] [place] [address]Dr. Tadeo Smyth RBC 3.88 106/ul Critically low 4.20-5.40 The [facility] Comment on above: Performed By: #### C BC ####[facility] Hzfq[address]fe[address] [place], [place] [address]Dr. Tadeo Smyth WBC 5.6 103/ul Normal 4.0-11.0 The [facility] Comment on above: Performed By: #### C BC ####[facility] [address] [place] [address]Dr. Tadeo Smyth CT ABD/PELV W CONon 03-27-20 CT ABD/PELV W CON Normal The [facility] CT ABD/PELVIS WO CONon 03-27 CT ABD/PELVIS WO CON Normal The [facility] Covid-19 PCR (CVDTB)on 03-06 SARS-CoV-2 (COVID-19) RNA CHEN+probe Ql (Unsp spec) Not detected Normal NOT DETECTED The [facility] Comment on above: Result Comment: When diagnostic [...] for this test is supported by the [employer]'s declaration that [...] be used). Performed By: #### C VDTB ####[facility] Mzdioxknta[address] [place], [place] [address]Dr. Tadeo Smyth ER URINE PROFILEon Bilirubin Ql (U) Negative Normal NEGATIVE The [facility] Comment on above: Performed By: #### E RUR, PREGU ####[facility] Uxkxpnujin[address] [place], [place] [address]Dr. Tadeo Smyth Clarity (U) CLEAR Normal CLEAR The [facility] Comment on above: Performed By: #### E RUR, PREGU ####[facility] Kejtfcnbcn[address] [place], [place] [address]Dr. Tadeo Smyth Color (U) LT. YELLOW Normal YELLOW The [facility] Comment on above: Performed By: #### E RUR, PREGU ####[facility] Qjbkdlvrhz[address] [place], [place] [address]Dr. Tadeo Smyth ERUAHD A micrscopic examina tion will be performed if indicated. Normal The [facility] Comment on above: Performed By: #### Matthew RUR, PREGU ####[facility] Fhdesgiiqs[address] [place], [place] [address]Dr. Tadeo Smyth Glucose Ql (U) Negative Normal NEGATIVE The [facility] Comment on above: Performed By: #### E RUR, PREGU ####[facility] Cslcfteeaq[address] [place], [place] [address]Dr. Tadeo Smyth Hemoglobin Ql (U) SMALL Abnormal NEGATIVE The [facility] Comment on above: Performed By: #### E RUR, PREGU ####[facility] Yyhhgvyiom[address] [place], [place] [address]Dr. Tadeo Smyth Ketones Ql (U) TRACE Abnormal NEGATIVE The [facility] Comment on above: Performed By: #### Matthew FRANCISCO, PREGU ####[facility] Axggvjhnoo[address] [place], [place] [address]Dr. Tadeo Smyth LEUKOCYTES Negative Normal NEGATIVE The [facility] Comment on above: Performed By: #### Matthew FRANCISCO, PREGU ####[facility] Rlrkfpbglj[address] [place], [place] [address]Dr. Tadeo Smyth Nitrite Ql (U) Negative Normal NEGATIVE The [facility] Comment on above: Performed By: #### Matthew FRANCISCO, PREGU ####[facility] Njhbukveny[address] [place], [place] [address]Dr. Tadeo Smyth pH (U) 6.0 [pH] Normal 5-9 The [facility] Comment on above: Performed By: #### Matthew FRANCISCO, PREGU ####[facility] Fbnezorarp[address] [place], [place] [address]Dr. Tadeo Smyth SPEC GRAVITY >=1.030 Abnormal 1.005-<=1.0 25 The [facility] Comment on above: Performed By: #### Matthew FRANCISCO, PREGU ####[facility] Wjojosptnf[address] [place], [place] [address]Dr. Ta[place] Smyth UA PROTEIN Negative Normal NEGATIVE/ TRACE The [facility] Comment on above: Performed By: #### Matthew BURLESONR, PREGU ####[facility] Xvyjnucblc[address] [place], [place] [address]Dr. Tadeo Smyth UR MICRO IND NOT INDICATED Normal The [facility] Comment on above: Performed By: #### E RUR, PREGU ####[facility] L[address]qys[address]dx[address] [place] [address]Dr. Tadeo Smyth Urobilinogen Qn (U) 0.2 {Benito'U}/dL Normal 0.2 - 1. 0 The [facility] Comment on above: Performed By: #### E RUR, PREGU ####[facility] Ny[address]zqor[address] [place] [address]Dr. Tadeo Smyth LIPASEon 03-27-2022 Lipase [Catalytic activity/Vol] 126.0 U/L Normal 73.0-393.0 The [facility] Comment on above: Performed By: #### L IPA, CMP ####[facility] Nphrldgjrd[address] [place], [place] [address]Dr. Margotnicole Smyth URon 03-27-2022 , QUAL Negative Normal NEGATIVE The [facility] Comment on above: Performed By: #### E RUR, PREGU ####[facility] Fciedeothm[address] [place], [place] [address]Dr. Tadeo Smyth PROF 14(COMP METB)on 022 Albumin [Mass/Vol] 3.6 g/dL Normal 3.4-5.0 The [facility] Comment on above: Performed By: #### L IPA, CMP ####[facility] Mhsfhjnkdi[address] [place], [place] [address]Dr. Tadeo Smyth Albumin/Globulin [Mass ratio] 1.1 {ratio} Normal The [facility] Comment on above: Performed By: #### L IPA, CMP ####[facility] Qxkepq[address]hnq[address] [place] [address]Dr. Tadeo Smyth ALP [Catalytic activity/Vol] 139 U/L Critically high 46-116 The [facility] Comment on above: Performed By: #### L IPA, CMP ####[facility] Bknvyqgqhf[address] [place] [address]Dr. Tadeo Smyth ALT [Catalytic activity/Vol] 18 U/L Normal 14-59 The [facility] Comment on above: Performed By: #### L IPA, CMP ####[facility] Daqalqdbvf[address] [place], [place] [address]Dr. Tadeo Smyth Anion gap [Moles/Vol] 10.7 mmol/L Normal Th e [facility] Comment on above: Performed By: #### L IPA, CMP ####[facility] Yixxcvqwny[address] [place], [place] [address]Dr. Tadeo Smyth AST [Catalytic activity/Vol] 11 U/L Critically low 15-37 [facility] Comment on above: Performed By: #### L IPA, CMP ####[facility] Ybigwrcolf[address] [place], [place] [address]Dr. Tadeo Smyth Bilirubin [Mass/Vol] 0.2 mg/dL Normal 0.2-1.0 [facility] Comment on above: Performed By: #### L IPA, CMP ####[facility] Wehoufnmql[address] [place], [place] [address]Dr. Tadeo Smyth Calcium [Mass/Vol] 9.0 mg/dL Normal 8.5-10.1 [facility] Comment on above: Performed By: #### L IPA, CMP ####[facility] Xoflaunfqf[address] [place], [place] [address]Dr. Tadeo Smyth Chloride [Moles/Vol] 106 mmol/L Normal 98-107 The [facility] Comment on above: Performed By: #### L IPA, CMP ####[facility] Wvsuwaiklt[address] [place], [place] [address]Dr. Tadeo Smyth CO2 [Moles/Vol] 26.9 mmol/L Normal 21.0-32.0 The [facility] Comment on above: Performed By: #### L IPA, CMP ####[facility] Pjinldzvfm[address] [place], [place] [address]Dr. Tadeo Smyth Creatinine [Mass/Vol] 0.84 mg/dL Normal 0.55-1.02 [facility] Comment on above: Performed By: #### L IPA, CMP ####[facility] Gxpcbvnnkz[address] [place], [place] [address]Dr. Tadeo Smyth EGFR-AF [place]ER >60 Normal >=60 The [facility] Comment on above: Performed By: #### L IPA, CMP ####[facility] I[address]ntvfr[address] [place] [address]Dr. Tadeo Smyth EGFR-NON AF [place]ER >60 Normal >=60 The [facility] Comment on above: Performed By: #### L IPA, CMP ####[facility] Yjuyeuehpr34[address] [place] [address]Dr. Tadeo Smyth Globulin (S) [Mass/Vol] 3.4 g/dL Normal The [facility] Comment on above: Performed By: #### L IPA, CMP ####[facility] Vybzgajiks[address] [place], [place] [address]Dr. Tadeo Smyth Glucose [Mass/Vol] 96 mg/dL Normal 74-106 [facility] Comment on above: Performed By: #### L IPA, CMP ####[facility] Hehgycugir[address] [place], [place] [address]Dr. Tadeo Smtyh Potassium [Moles/Vol] 3.6 mmol/L Normal 3.5-5.1 The [facility] Comment on above: Performed By: #### L IPA, CMP ####[facility] Dtuodpldew[address] [place], [place] [address]Dr. Tadeo Smyth Protein [Mass/Vol] 7.0 g/dL Normal 6.4-8.2 The [facility] Comment on above: Performed By: #### L IPA, CMP ####[facility] Okwkryagma[address] [place], [place] [address]Dr. Tadeo Smyth Sodium [Moles/Vol] 140 mmol/L Normal 136-145 The [facility] Comment on above: Performed By: #### L IPA, CMP ####[facility] Gfjrvzvosi[address] [place], [place] [address]Dr. Tadeo Smyth Urea nitrogen [Mass/Vol] 23.0 mg/dL Critically high 7.0-18.0 The [facility] Comment on above: Performed By: #### L IPA, CMP ####[facility] Ykuyfrenfg[address] [place], [place] [address]Dr. Tadeo Smyth Urea nitrogen/Creatinine [Mass ratio] 27.4 mg/mg Normal The [facility] Comment on above: Performed By: #### L IPA, CMP ####[facility] [address]wsp[address]unkfl[address] [place] [address]Dr. Tadeo Smyth GROUP A STREP CULTUREon S. pyogenes Ag Ql (Unsp spec) Normal [facility] Comment on above: Performed By: #### G RASTCX, SSCRN ####[facility] Xfazhfrzmc[address] [place], [place] [address]Dr. Tadeo Smyth AMYLASEon 02-02-2022 Amylase [Catalytic activity/Vol] 37 U/L Normal 25-115 The [facility] Comment on above: Performed By: #### C MP, VIJI, LIPA ####[facility] Bjemlqmgew[address] [place], [place] [address]Dr. Tadeo Smyth CBC AUTO DIFFon 02-02-2022 BASO # 0.0 103/ul Normal 0.0-0.1 [facility] Comment on above: Performed By: #### C BC ####[facility] Smtsiiaqjm[address] [place], [place] [address]Dr. Tadeo Haja Basophils/100 WBC (Bld) 0.2 % Normal 0.2-2.0 [facility] Comment on above: Performed By: #### C BC ####[facility] Ajxgvggbxc[address] [place], [place] [address]Dr. Tadeo Smyth EO # 0.0 103/ul Normal 0.0-0.7 The [facility] Comment on above: Performed By: #### C BC ####[facility] Itkieandve[address] [place], [place] [address]Dr. Tadeo Smyth Eosinophils/100 WBC (Bld) 0.2 % Critically low 0.9-7.0 The [facility] Comment on above: Performed By: #### C BC ####[facility] Rfajeytccy[address] [place], [place] [address]Dr. Tadeo Smyth Erythrocyte distribution width (RBC) [Ratio] 13.4 % Normal 11.0-15.0 [facility] Comment on above: Performed By: #### C BC ####[facility] Hzzaaackse[address] [place], [place] [address]Dr. Tadeo Smyth Hematocrit (Bld) [Volume fraction] 36.8 % Normal 36.0-48.0 The [facility] Comment on above: Performed By: #### C BC ####[facility] Qgspyintgt[address] [place] [address]Dr. Tadeo Smyth Hemoglobin (Bld) [Mass/Vol] 11.6 g/dL Critically low 12.0-16.0 The [facility] Comment on above: Performed By: #### C BC ####[facility] Rkyvchvoba[address] [place] [address]Dr. Tadeo Haja IG # 0.08 10e3/ul Critically high 0.00-0.03 [facility] Comment on above: Performed By: #### C BC ####[facility] Jgdltxanhy[address] [place] [address]Dr. Margotnicole Smyth IG % 0.6 % Critically high 0.0-0.5 [facility] Comment on above: Performed By: #### C BC ####[facility] Mpjphdrmeg[address] [place] [address]DrNeo Tadeo Haja LYMPH # 0.9 103/ul Critically low 1.2-3.8 The [facility] Comment on above: Performed By: #### C BC ####[facility] Eaegkishas87[address] [place] [address]DrNeo Tadeo Haja Lymphocytes/100 WBC (Bld) 6.9 % Critically low 20.5-60.0 The [facility] Comment on above: Performed By: #### C BC ####[facility] Immzvhdcwf[address] [place] [address]DrNeo Margotnicole Smyth MANUAL DIFF REQ NO Normal The [facility] Comment on above: Performed By: #### C BC ####[facility] Lqkyzrusyn64[address] [place] [address]DrNeo Tadeo Haja MCH (RBC) [Entitic mass] 28.9 pg Normal 26.7-34.0 The [facility] Comment on above: Performed By: #### C BC ####[facility] Uzzv[address]unnc[address] [place], [place] [address]DrNeo Tadeo Smyth MCHC (RBC) [Mass/Vol] 31.5 g/dL Normal 29.9-35.2 The [facility] Comment on above: Performed By: #### C BC ####[facility] [address]ut[address] [place] [id number]. Tadeo Smyth MCV (RBC) [Entitic vol] 91.8 fL Normal 81.0-99.0 The [facility] Comment on above: Performed By: #### C BC ####[facility] [address] [place] [address]Dr. Tadeo Smyth MONO # 0.9 103/ul Critically high 0.3-0.8 The [facility] Comment on above: Performed By: #### C BC ####[facility] Tkvrowdqid04[address] [place] [address]Dr. Tadeo Haja Monocytes/100 WBC (Bld) 6.9 % Normal 1.7-12.0 The [facility] Comment on above: Performed By: #### C BC ####[facility] Kxenfyq[address] [place] [address]Dr. Tadeo Smyth NEUT # 11.6 103/ul Critically high 1.4-6.5 The [facility] Comment on above: Performed By: #### C BC ####[facility] Tnxmpidyiz[address] [place] [address]Dr. Tadeo Smyth Neutrophils/100 WBC (Bld) 85.2 % Critically high 43.0-75.0 The [facility] Comment on above: Performed By: #### C BC ####[facility] Vqrpcthld[address] [place] [id number]. Tadeo Smyth Platelet mean volume (Bld) [Entitic vol] 8.9 fL Critically low 9.5-13.5 The [facility] Comment on above: Performed By: #### C BC ####[facility] [address]efq[address]kw[address] [place] [id number]. Tadeo Haja PLT 331 103/ul Normal 150-450 The [facility] Comment on above: Performed By: #### C BC ####[facility] Qcvrjpvmtt3623 [place] [address]Dr. Tadeo Smyth RBC 4.01 106/ul Critically low 4.20-5.40 The [facility] Comment on above: Performed By: #### C BC ####[facility] Jdroncpetl[address] [place] [address]Dr. Tadeo Smyth WBC 13.7 103/ul Critically high 4.0-11.0 The [facility] Comment on above: Performed By: #### C BC ####[facility] [address]zdvbetzo[address] [place] [address]Dr. Tadeo [facility] Covid-19 PCR (CVDTBH)on 01-05 SARS-CoV-2 (COVID-19) RNA CHEN+probe Ql (Unsp spec) Not detected Normal NOT DETECTED The [facility] Comment on above: Result Comment: When diagnostic [...] for this test is supported by the [employer]'s declaration that [...] be used). Performed By: #### C VDTBH ####[facility] [address]hmxn[address] [place] [id number]. Tadeo Smyth LIPASEon 02-02-2022 Lipase [Catalytic activity/Vol] 33.0 U/L Critically low 73.0-393.0 [facility] Comment on above: Performed By: #### C MP, VIJI, LIPA ####[facility] Mqhsujqmon[address] [place] [id number]. Tadeo Smyth MONOon 02-02-2022 Monocytes (Bld) [#/Vol] Negative Normal NEGATIVE [facility] Comment on above: Performed By: #### M JESSICA ####[facility] Ifixdvdfto[address] [place] [address]Dr. Tadeo Smyth PROF 14(COMP METB)on 022 Albumin [Mass/Vol] 3.1 g/dL Critically low 3.4-5.0 [facility] Comment on above: Performed By: #### C MP, VIJI, LIPA ####[facility] Nohhqbewer[address] [place] [address]Dr. Tadeo Smyth Albumin/Globulin [Mass ratio] 0.9 {ratio} Normal [facility] Comment on above: Performed By: #### C MP, VIJI, LIPA ####[facility] [address]eg[address]ajvudq[address] [place] [address]Dr. Tadeo Smyth ALP [Catalytic activity/Vol] 131 U/L Critically high 46-116 [facility] Comment on above: Performed By: #### C MP, VIJI, LIPA ####[facility] Y[address]wcezzjnh[address] [place] [address]Dr. Tadeo Smyth ALT [Catalytic activity/Vol] 25 U/L Normal 14-59 [facility] Comment on above: Performed By: #### C MP, VIJI, LIPA ####[facility] [address] [place] [address]Dr. Tadeo Smyth Anion gap [Moles/Vol] 10.0 mmol/L Normal [facility] Comment on above: Performed By: #### C MP, VIJI, LIPA ####[facility] [address] [place] [address]Dr. Tadeo Smyth AST [Catalytic activity/Vol] 19 U/L Normal 15-37 [facility] Comment on above: Performed By: #### C MP, VIJI, LIPA ####[facility] [address] [place] [address]Dr. Tadeo Smyth Bilirubin [Mass/Vol] 0.6 mg/dL Normal 0.2-1.0 [facility] Comment on above: Performed By: #### C MP, VIJI, LIPA ####[facility] [address] [place] [address]Dr. Tadeo Smyth Calcium [Mass/Vol] 8.2 mg/dL Critically low 8.5-10.1 Th e [facility] Comment on above: Performed By: #### C MP, VIJI, LIPA ####[facility] [address] [place], [place] [address]Dr. Tadeo Smyth Chloride [Moles/Vol] 106 mmol/L Normal 98-107 [facility] Comment on above: Performed By: #### C MP, VIJI, LIPA ####[facility] Odd[address] [place], [place] [address]Dr. Tadeo Smyth CO2 [Moles/Vol] 25.5 mmol/L Normal 21.0-32.0 [facility] Comment on above: Performed By: #### C MP, VIJI, LIPA ####[facility] [address] [place], [place] [address]Dr. Tadeo Smyth Creatinine [Mass/Vol] 0.78 mg/dL Normal 0.55-1.02 [facility] Comment on above: Performed By: #### C MP, VIJI, LIPA ####[facility] J[address] [place], [place] [address]Dr. Tadeo Smyth EGFR-AF [place] ISLANDER >60 Normal >=60 [facility] Comment on above: Performed By: #### C MP, VIJI, LIPA ####[facility] [address] [place], [place] [address]Dr. Tadeo Smyth EGFR-NON AF [place]ER >60 Normal >=60 [facility] Comment on above: Performed By: #### C MP, VIJI, LIPA ####[facility] A[address] [place], [place] [address]Dr. Tadeo Smyth Globulin (S) [Mass/Vol] 3.6 g/dL Normal [facility] Comment on above: Performed By: #### C MP, VIJI, LIPA ####[facility] Z[address] [place], [place] [address]Dr. Tadeo Smyth Glucose [Mass/Vol] 110 mg/dL Critically high 74-106 T [facility] Comment on above: Performed By: #### C VIJI GARCIA, LIPA ####[facility] [address] [place] [address]Dr. Tadeo Smyth Potassium [Moles/Vol] 3.5 mmol/L Normal 3.5-5.1 [facility] Comment on above: Performed By: #### C VIJI GARCIA, LIPA ####[facility] [address] [place] [address]Dr. Tadeo Smyth Protein [Mass/Vol] 6.7 g/dL Normal 6.4-8.2 [facility] Comment on above: Performed By: #### C JOSE VIJI, LIPA ####[facility] [address] [place] [address]Dr. Tadeo Smyth Sodium [Moles/Vol] 138 mmol/L Normal 136-145 [facility] Comment on above: Performed By: #### C VIJI GARCIA, LIPA ####[facility] [address] [place] [address]Dr. Tadeo Smyth Urea nitrogen [Mass/Vol] 11.0 mg/dL Normal 7.0-18.0 [facility] Comment on above: Performed By: #### C JOSE VIJI, LIPA ####[facility] [address] [place] [address]Dr. Tadeo Smyth Urea nitrogen/Creatinine [Mass ratio] 14.1 mg/mg Normal [facility] Comment on above: Performed By: #### C JOSE VIJI, LIPA ####[facility] [address] [place] [address]Dr. Tadeo Smyth STREPT SCREENon 02-02-2022 STREP SCREEN A Negative Normal NEGATIVE [facility] Comment on above: Performed By: #### G RASTCX, SSCRN ####[facility] [address] [place] [address]Dr. Tadeo Smyth BASIC METABOLIC PANELon 08-05 Calcium [Mass/Vol] 8.4 mg/dL Low 8.6-10.[address] [facility] Comment on above: Order Comment: No: D o not add to previous draw Performed By: #### 3 457, 39404 #### [facility] [address] [place] [address], [place] Chloride [Moles/Vol] 108 mmol/L High 98-[address] [facility] Comment on above: Order Comment: No: D o not add to previous draw Performed By: #### 3 6900, 73820 #### [facility] [address] [place] [address], [place] CO2 [Moles/Vol] 26 mmol/L Normal 21-[address] [facility] Comment on above: Order Comment: No: D o not add to previous draw Performed By: #### 3 838, 92068 #### [facility] [address] [place] [address], [place] Creatinine [Mass/Vol] 0.79 mg/dL Normal 0.60-1.[address] [facility] Comment on above: Order Comment: No: D o not add to previous draw Performed By: #### 3 6900, 91381 #### [facility] [address] [place] [address], [place] GFR/1.73 sq M predicted among blacks MDRD (S/P/Bld) [Vol rate/Area] mL/min/{1.73_m2} Normal >[address] [facility] Comment on above: Order Comment: No: D o not add to previous draw Performed By: #### 3 835, 74668 #### [facility] [address] [place] [address], [place] GFR/1.73 sq M predicted among non-blacks MDRD (S/P/Bld) [Vol rate/Area] mL/min/{1.73_m2} Normal >[address] [facility] Comment on above: Order Comment: No: D o not add to previous draw Performed By: #### 3 436, 61770 #### [facility] [address] [place] [id number], [place] Glucose [Mass/Vol] 98 mg/dL Normal 70-[address] [facility] Comment on above: Order Comment: No: D o not add to previous draw Performed By: #### 3 702, 23410 #### [facility] [address] [place] [address], [place] Potassium [Moles/Vol] 3.5 mmol/L Normal 3.5-5.[address] [facility] Comment on above: Order Comment: No: D o not add to previous draw Performed By: #### 3 518, 61211 #### [facility] [address] [place] [address], [place] Sodium [Moles/Vol] 139 mmol/L Normal 136-[address] [facility] Comment on above: Order Comment: No: D o not add to previous draw Performed By: #### 3 570, 08810 #### [facility] [address] [place] [address], [place] Urea nitrogen [Mass/Vol] 11 mg/dL Normal 7-[address] [facility] Comment on above: Order Comment: No: D o not add to previous draw Performed By: #### 3 889, 65036 #### [facility] [address] [place] [address], [place] BLOOD STOOL GUAIACon 019 BLD STOOL GUAIAC Negative Normal NEGATIVE [facility] Comment on above: Order Comment: No: D o not add to previous draw Performed By: #### 3 699, 90024 #### [facility] [address] [place] [address], [place] MAGNESIUM BLOODon 08-16-2019 Magnesium [Mass/Vol] 2.0 mg/dL Normal 1.9-2.[address] [facility] Comment on above: Order Comment: No: D o not add to previous draw Performed By: #### 3 172, 84289 #### [facility] [address] *URINE CULTUREon 08-15-2019 Bacteria identified Cx Nom (U) Clinical Report: (D) Specimen/Source: URINE/MIDSTREAM Collected: 08/15/2019 20:40 Status: Final Last Updated: 08/17/2019 08:05 ISO (Final) Escherichia coli >100,000 Cfu/Ml ISOLATE: Escherichia coli RHONDA (mcg/ml) AMP./SULBAC (AMS) 16/8 Intermediate AMPICILLIN (AM) >16 Resistant AZTREONAM (AZM) <=1 Susceptible CEFAZOLIN (CZ) 2 Susceptible CEFTRIAXONE (DAIRY BACTERIOLOGIST) <=0.5 Susceptible CIPROFLOXACIN (CIP) >2 Resistant ESBL (-/+) (ESBL) Negative GENTAMICIN (GM) <=1 Susceptible NITROFURANTOIN (FT) <=16 Susceptible PIP/TAZO (TZP) 4/4 Susceptible TOBRAMYCIN (TOB) 1 Susceptible TRIMETH/SULFA (SXT) >2/38 Resistant Normal [facility] Comment on above: Performed By: #### 3 6901, 14611 #### [facility] [address] BASIC METABOLIC PANELon 08-05 Calcium [Mass/Vol] 8.8 mg/dL Normal 8.6-10.[address] [facility] Comment on above: Order Comment: No: D o not add to previous draw Performed By: #### 0 0071, 22408, 83269 #### [facility] [address] [place] [address], [facility] Chloride [Moles/Vol] 107 mmol/L Normal 98-[address] [facility] Comment on above: Order Comment: No: D o not add to previous draw Performed By: #### 0 0071, 56698, 50563 #### [facility] [address] [place] [address], [facility] CO2 [Moles/Vol] 27 mmol/L Normal 21-[address] [facility] Comment on above: Order Comment: No: D o not add to previous draw Performed By: #### 0 0071, 53295, 33413 #### [facility] [address] [place] [address], [place] Creatinine [Mass/Vol] 0.99 mg/dL Normal 0.60-1.[address] [facility] Comment on above: Order Comment: No: D o not add to previous draw Performed By: #### 0 0071, 44210, 67841 #### [facility] [address] [place] [address], [place] GFR/1.73 sq M predicted among blacks MDRD (S/P/Bld) [Vol rate/Area] mL/min/{1.73_m2} Normal >[address] [facility] Comment on above: Order Comment: No: D o not add to previous draw Performed By: #### 0 0071, 36173, 23577 #### [facility] [address] [place] [address], [place] GFR/1.73 sq M predicted among non-blacks MDRD (S/P/Bld) [Vol rate/Area] 59 ml/min/1.73sq m Abnormal >[address] [facility] Comment on above: Order Comment: No: D o not add to previous draw Performed By: #### 0 0071, 20665, 29342 #### [facility] [address] [place] [address], [place] Glucose [Mass/Vol] 100 mg/dL Normal 70-[address] [facility] Comment on above: Order Comment: No: D o not add to previous draw Performed By: #### 0 0071, 75168, 66984 #### [facility] [address] [place] [address], [place] Potassium [Moles/Vol] 3.6 mmol/L Normal 3.5-5.[address] [facility] Comment on above: Order Comment: No: D o not add to previous draw Performed By: #### 0 0071, 52676, 33644 #### [facility] [address] [place] [address], [facility] Sodium [Moles/Vol] 140 mmol/L Normal 136-[address] [facility] Comment on above: Order Comment: No: D o not add to previous draw Performed By: #### 0 0071, 81035, 07643 #### [facility] [address] [place] [address], [facility] Urea nitrogen [Mass/Vol] 9 mg/dL Normal 7-[address] [facility] Comment on above: Order Comment: No: D o not add to previous draw Performed By: #### 0 0071, 98382, 65370 #### [facility] [address] [place] [address], [facility] LACTATE BLOODon 08-15-2019 Lactate [Moles/Vol] 0.8 mmol/L Normal 0.5-2.[address] [facility] Comment on above: Order Comment: Yes: Add to Previous draw if able Performed By: #### 1 0054 #### [facility] [address] LMWH HEPARIN ASSAYon 019 LOW MOLECULAR WEIGHT HEPARIN 0.32 IU/mL Low 0.60-1.[address] [facility] Comment on above: Order Comment: (draw 4 [...] UFH and LMWH. Performed By: #### 3 3321, 12207 #### [facility] [address] [facility] [place] [address], [facility] MAGNESIUM BLOODon 08-15-2019 Magnesium [Mass/Vol] 1.7 mg/dL Low 1.9-2.[address] [facility] Comment on above: Order Comment: No: D o not add to previous draw Performed By: #### 0 0071, 61571, 04682 #### [facility] [address] [facility] [place] [address], [facility] PHOSPHORUS BLOODon 9 Phosphate [Mass/Vol] 4.1 mg/dL Normal 2.5-5.[address] [facility] Comment on above: Order Comment: No: D o not add to previous draw Performed By: #### 0 0071, 76127, 74391 #### [facility] [address] [place] [address], [facility] UGI WITH SMALL BOWELon 08-15 UGI WITH SMALL BOWEL [facility] Department of Radiology [address] [place] [id number] Patient Name: CONSTANTINO CARDOSO : 1970 Sex: F Age: Race: White Pt. Location: [id number] Patient Status: O Ordered Date: 08/15/2019 10:45:00 [...] ischemia. Electronically signed by:Orestes Condon. Transcribed by: [email or web address], User Resident: Electronically Signed by: ORESTES CONDON @ 08/15/2019 04:13 PM Normal [facility] Comment on above: Order Comment: R/O O bstruction URINALYSIS REFLEXon 08-15-20 Appearance (U) SL CLOUDY Abnormal CLEAR [facility] Comment on above: Order Comment: No: D o not add to previous drawCriteria for reflexing a culture was met. Urine Culture and sensitivitywill be performed. Performed By: #### 3 1133, 25476 #### [facility] [address] [place] [address], [facility] Bilirubin [Mass/Vol] Negative Normal NEGATIVE [facility] Comment on above: Order Comment: No: D o not add to previous drawCriteria for reflexing a culture was met. Urine Culture and sensitivitywill be performed. Performed By: #### 3 7881, 23077 #### [facility] [address] [place] [address], [place] BLOOD SMALL Abnormal NEGATIVE [facility] Comment on above: Order Comment: No: D o not add to previous drawCriteria for reflexing a culture was met. Urine Culture and sensitivitywill be performed. Performed By: #### 3 690, 16375 #### [facility] [address] [place] [address], [place] Color (U) YELLOW Normal YELLOW [facility] Comment on above: Order Comment: No: D o not add to previous drawCriteria for reflexing a culture was met. Urine Culture and sensitivitywill be performed. Performed By: #### 3 690, 20526 #### [facility] [address] [place] [address], [place] EPIS OCC Normal FEW,OCC,NON E SEEN [facility] Comment on above: Order Comment: No: D o not add to previous drawCriteria for reflexing a culture was met. Urine Culture and sensitivitywill be performed. Performed By: #### 3 281, 06673 #### [facility] [address] [place] [address], [place] Glucose [Mass/Vol] Negative Normal NEGATIVE [facility] Comment on above: Order Comment: No: D o not add to previous drawCriteria for reflexing a culture was met. Urine Culture and sensitivitywill be performed. Performed By: #### 3 184, 90797 #### [facility] [address] [place] [address], [place] HYALINE CASTS 6-10 Abnormal NONE SEEN [facility] Comment on above: Order Comment: No: D o not add to previous drawCriteria for reflexing a culture was met. Urine Culture and sensitivitywill be performed. Performed By: #### 3 1081, 67715 #### [facility] [address] [place] [address], [place] KETONE Negative Normal NEGATIVE [facility] Comment on above: Order Comment: No: D o not add to previous drawCriteria for reflexing a culture was met. Urine Culture and sensitivitywill be performed. Performed By: #### 3 2091, 36331 #### [facility] [address] [place] [address], [place] LEUK JONN MODERATE Abnormal NEGATIVE [facility] Comment on above: Order Comment: No: D o not add to previous drawCriteria for reflexing a culture was met. Urine Culture and sensitivitywill be performed. Performed By: #### 3 4001, 19753 #### [facility] [address] [place] [address], [place] MUCUS THREADS FEW Abnormal NONE SEEN [facility] Comment on above: Order Comment: No: D o not add to previous drawCriteria for reflexing a culture was met. Urine Culture and sensitivitywill be performed. Performed By: #### 3 6461, 99188 #### [facility] [address] [place] [address], [place] Nitrite Ql (U) Negative Normal NEGATIVE [facility] Comment on above: Order Comment: No: D o not add to previous drawCriteria for reflexing a culture was met. Urine Culture and sensitivitywill be performed. Performed By: #### 3 746, 47350 #### [facility] [address] [place] [address], [facility] pH (Bld) 5.0 Normal 5.0-8.[address] [facility] Comment on above: Order Comment: No: D o not add to previous drawCriteria for reflexing a culture was met. Urine Culture and sensitivitywill be performed. Performed By: #### 3 9721, 07483 #### [facility] [address] [place] [address], [place] Protein (U) [Mass/Vol] Negative Normal NEGATIVE [facility] Comment on above: Order Comment: No: D o not add to previous drawCriteria for reflexing a culture was met. Urine Culture and sensitivitywill be performed. Performed By: #### 3 6901, 85568 #### [facility] [address] RBC (U) [#/Vol] 6-10 Abnormal NONE SEEN [facility] Comment on above: Order Comment: No: D o not add to previous drawCriteria for reflexing a culture was met. Urine Culture and sensitivitywill be performed. Performed By: #### 3 690, 77071 #### [facility] [address] [facility] [address] SPEC GRAV 1.025 High 1.015-1.[address] [facility] Comment on above: Order Comment: No: D o not add to previous drawCriteria for reflexing a culture was met. Urine Culture and sensitivitywill be performed. Performed By: #### 3 690, 51753 #### [facility] [address] [facility] [address] WBC UA 51-100 Abnormal NONE SEEN [facility] Comment on above: Order Comment: No: D o not add to previous drawCriteria for reflexing a culture was met. Urine Culture and sensitivitywill be performed. Performed By: #### 3 6901, 68453 #### [facility] [address] [facility]. [address] CBC COMPLETE BLOOD COUNTon 10-15-2018 Erythrocyte distribution width (RBC) [Ratio] 12.7 % Normal 11.5-15.[address] [facility] Comment on above: Order Comment: No: D o not add to previous draw Performed By: #### 5 0608 #### [facility] [address] [facility]. [address] Hematocrit (Bld) [Volume fraction] 31.2 % Low 36.0-45.[address] [facility] Comment on above: Order Comment: No: D o not add to previous draw Performed By: #### 5 0608 #### [facility] [address] Hemoglobin (Bld) [Mass/Vol] 9.8 g/dL Low 12.0-15.[address] [facility] Comment on above: Order Comment: No: D o not add to previous draw Performed By: #### 5 0608 #### [facility] [address] [place] [id number], [facility] MCH (RBC) [Entitic mass] 29.1 pg Normal 27.0-33.[address] [facility] Comment on above: Order Comment: No: D o not add to previous draw Performed By: #### 5 0608 #### [facility] [address] [facility] [place] [address], [facility] MCHC (RBC) [Mass/Vol] 31.4 g/dL Low 32.0-35.[address] [facility] Comment on above: Order Comment: No: D o not add to previous draw Performed By: #### 5 0608 #### [facility] [address] [facility] [place] [address], [facility] MCV (RBC) [Entitic vol] 92.6 fL Normal 82.0-98.[address] [facility] Comment on above: Order Comment: No: D o not add to previous draw Performed By: #### 5 0608 #### [facility] [address] [facility] [place] [address], [facility] Nucleated RBC/100 WBC (Bld) [Ratio] 0 % Normal 0-[address] [facility] Comment on above: Order Comment: No: D o not add to previous draw Performed By: #### 5 0608 #### [facility] [address] [facility] [place] [address], [facility] PLAT CNT 340 10*3/uL Normal 150-[address] [facility] Comment on above: Order Comment: No: D o not add to previous draw Performed By: #### 5 0608 #### [facility] [address] [facility] [place] [address], [facility] RBC (Bld) [#/Vol] 3.37 10*6/uL Low 3.80-5.[address] [facility] Comment on above: Order Comment: No: D o not add to previous draw Performed By: #### 5 0608 #### [facility] [address] [facility] [address] WBC (Bld) [#/Vol] 6.04 10*3/uL Normal 4.00-10.[address] [facility] Comment on above: Order Comment: No: D o not add to previous draw Performed By: #### 5 0608 #### [facility] [address] [facility] [address] PROTHROMBIN TIMEon 9 INR Coag (PPP) [Relative time] 1.09 {INR} Normal 0.91-1.16 [facility] Comment on above: Order Comment: No: D [...] 1995;108:[id number]. Performed By: #### 5 6101 #### [facility] [address] PT Coag (PPP) [Time] 14.1 s Normal 12.3-14.[address] [facility] Comment on above: Order Comment: No: D o not add to previous draw Result Comment: ALL RESULTS MUST BE INTERPRETED WITH RESPECT TO BLOOD DRAWING ARTIFACT OR DILUTION ERROR OF ANTICOAGULANT AT THE TIME OF SAMPLING. Performed By: #### 5 6101 #### [address] LIVER 08-14-2019 [facility] Department of Radiology [address] [place] [id number] Patient Name: CONSTANTINO CARDOSO : 1970 Sex: F Age: Race: White Pt. Location: [id number] Patient Status: O Ordered Date: 08/13/2019 8:30:00 [...] cholecystectomy. Electronically signed by:Orestes Condon. Transcribed by: [email or web address], User Resident: Electronically Signed by: ORESTES CONDON @ 08/14/2019 02:09 PM Normal [facility] Comment on above: Order Comment: R/O S tones BASIC METABOLIC PANELon 12-0 Calcium [Mass/Vol] 9.4 mg/dL Normal 8.6-10.[address] [facility] Comment on above: Order Comment: No: D o not add to previous draw Performed By: #### 3 012, 02819 #### [facility] [address] [place] [address], [place] Chloride [Moles/Vol] 105 mmol/L Normal 98-[address] [facility] Comment on above: Order Comment: No: D o not add to previous draw Performed By: #### 3 886, 79617 #### [facility] [address] [place] [address], [place] CO2 [Moles/Vol] 26 mmol/L Normal 21-[address] [facility] Comment on above: Order Comment: No: D o not add to previous draw Performed By: #### 3 982, 81005 #### [facility] [address] [place] [address], [place] Creatinine [Mass/Vol] 1.03 mg/dL Normal 0.60-1.[address] [facility] Comment on above: Order Comment: No: D o not add to previous draw Performed By: #### 3 6519, 03993 #### [facility] [address] [place] [address], [place] GFR/1.73 sq M predicted among blacks MDRD (S/P/Bld) [Vol rate/Area] mL/min/{1.73_m2} Normal >[address] [facility] Comment on above: Order Comment: No: D o not add to previous draw Performed By: #### 3 391, 31591 #### [facility] [address] [place] [address], [facility] GFR/1.73 sq M predicted among non-blacks MDRD (S/P/Bld) [Vol rate/Area] 57 ml/min/1.73sq m Abnormal >[address] [facility] Comment on above: Order Comment: No: D o not add to previous draw Performed By: #### 3 064, 34330 #### [facility] [address] [place] [address], [place] Glucose [Mass/Vol] 96 mg/dL Normal 70-[address] [facility] Comment on above: Order Comment: No: D o not add to previous draw Performed By: #### 3 608, 92885 #### [facility] [address] [place] [address], [place] Potassium [Moles/Vol] 4.1 mmol/L Normal 3.5-5.[address] [facility] Comment on above: Order Comment: No: D o not add to previous draw Performed By: #### 3 579, 44344 #### [facility] [address] [place] [address], [place] Sodium [Moles/Vol] 138 mmol/L Normal 136-[address] [facility] Comment on above: Order Comment: No: D o not add to previous draw Performed By: #### 3 145, 36302 #### [facility] [address] [place] [address], [place] Urea nitrogen [Mass/Vol] 16 mg/dL Normal 7-[address] [facility] Comment on above: Order Comment: No: D o not add to previous draw Performed By: #### 3 022, 39431 #### [facility] [address] [place] [address], [place] CBC W/DIFFon 08-13-2019 ABS BASOPHILS 0.0 10*3/uL Normal 0.0-0.[address] [facility] Comment on above: Order Comment: No: D o not add to previous draw Performed By: #### [id number] #### [facility] [address] [place] [address], [facility] ABS IMM GRANS 0.0 10*3/uL Normal 0.0-0.[address] [facility] Comment on above: Order Comment: No: D o not add to previous draw Performed By: #### 5 [id number] #### [facility] [address] [place] [address], [facility] ABS NEUTROPHILS 4.0 10*3/uL Normal 1.6-7.[address] [facility] Comment on above: Order Comment: No: D o not add to previous draw Performed By: #### 5 [id number] #### [facility] [address] [place] [address], [facility] Basophils/100 WBC (Bld) 0.5 % Normal 0.0-1.[address] [facility] Comment on above: Order Comment: No: D o not add to previous draw Performed By: #### 5 [id number] #### [facility] [address] [place] [address], [facility] Eosinophils (Bld) [#/Vol] 0.2 10*3/uL Normal 0.0-0.[address] [facility] Comment on above: Order Comment: No: D o not add to previous draw Performed By: #### 5 [id number] #### [facility] [address] [place] [address], [facility] Eosinophils/100 WBC (Bld) 3.3 % Normal 0.0-6.[address] [facility] Comment on above: Order Comment: No: D o not add to previous draw Performed By: #### 5 [id number] #### [facility] [address] [place] [address], [facility] Erythrocyte distribution width (RBC) [Ratio] 12.7 % Normal 11.5-15.[address] [facility] Comment on above: Order Comment: No: D o not add to previous draw Performed By: #### 5 [id number] #### [facility] [address] [place] [address], [facility] Hematocrit (Bld) [Volume fraction] 33.4 % Low 36.0-45.[address] [facility] Comment on above: Order Comment: No: D o not add to previous draw Performed By: #### 5 [id number] #### [facility] [address] [place] [address], [facility] Hemoglobin (Bld) [Mass/Vol] 10.5 g/dL Low 12.0-15.[address] [facility] Comment on above: Order Comment: No: D o not add to previous draw Performed By: #### 5 [id number] #### [facility] [address] [place] [address], [facility] IMMATURE GRANS 0.2 % Normal 0.0-1.[address] [facility] Comment on above: Order Comment: No: D o not add to previous draw Performed By: #### 5 [id number] #### [facility] [address] [place] [address], [facility] Lymphocytes (Bld) [#/Vol] 1.8 10*3/uL Normal 1.2-4.[address] [facility] Comment on above: Order Comment: No: D o not add to previous draw Performed By: #### 5 [id number] #### [facility] [address] [address], [facility] Lymphocytes/100 WBC (Bld) 28.2 % Normal 20.0-45.[address] [facility] Comment on above: Order Comment: No: D o not add to previous draw Performed By: #### 5 [id number] #### [facility] [address] [place] [address], [facility] MCH (RBC) [Entitic mass] 28.9 pg Normal 27.0-33.[address] [facility] Comment on above: Order Comment: No: D o not add to previous draw Performed By: #### 5 [id number] #### [facility] [address] [place] [address], [facility] MCHC (RBC) [Mass/Vol] 31.4 g/dL Low 32.0-35.[address] [facility] Comment on above: Order Comment: No: D o not add to previous draw Performed By: #### 5 [id number] #### [facility] [address] [place] [address], [facility] MCV (RBC) [Entitic vol] 92.0 fL Normal 82.0-98.[address] [facility] Comment on above: Order Comment: No: D o not add to previous draw Performed By: #### 5 [id number] #### [facility] [address] [place] [address], [facility] Monocytes (Bld) [#/Vol] 0.4 10*3/uL Normal 0.1-1.[address] [facility] Comment on above: Order Comment: No: D o not add to previous draw Performed By: #### 5 [id number] #### [facility] [address] [facility] [place] [address], [facility] MONOS 6.2 % Normal 5.0-12.[address] [facility] Comment on above: Order Comment: No: D o not add to previous draw Performed By: #### 5 [id number] #### [facility] [address] [place] [address], [facility] Neutrophils/100 WBC (Bld) 61.6 % Normal 40.0-72.[address] [facility] Comment on above: Order Comment: No: D o not add to previous draw Performed By: #### 5 [id number] #### [facility] [address] [place] [address], [facility] Nucleated RBC/100 WBC (Bld) [Ratio] 0 % Normal 0-[address] [facility] Comment on above: Order Comment: No: D o not add to previous draw Performed By: #### 5 [id number] #### [facility] [address] [place] [address], [facility] PLAT CNT 382 10*3/uL Normal 150-[address] [facility] Comment on above: Order Comment: No: D o not add to previous draw Performed By: #### 5 [id number] #### [facility] [address] [place] [address], [facility] RBC (Bld) [#/Vol] 3.63 10*6/uL Low 3.80-5.[address] [facility] Comment on above: Order Comment: No: D o not add to previous draw Performed By: #### 5 [id number] #### [facility] [address] [place] [address], [facility] WBC (Bld) [#/Vol] 6.45 10*3/uL Normal 4.00-10.[address] [facility] Comment on above: Order Comment: No: D o not add to previous draw Performed By: #### 5 [id number] #### [facility] [address] [place] [address], [facility] LIPASE BLOODon 08-13-2019 Lipase [Catalytic activity/Vol] 13 Units/L Normal 11-[address] [facility] Comment on above: Performed By: #### 3 [id number], [id number] #### [facility] [address] Vital Signs Date Time Vital Sign Value Performing Clinician Facility 07-22-2023 13:19-0500 Body height 170.[address] Work Phone: [facility] 07-22-2023 13:19-0500 Body weight 83.[address] Work Phone: [facility] 07-14-2023 11:40-0500 Diastolic blood pressure 95 mm[Hg] Marques Bradley MD Work Phone: [facility] 07-14-2023 11:40-0500 Heart rate 56 /min Marques Bradley MD Work Phone: [facility] 07-14-2023 11:40-0500 Respiratory rate 16 /min Marques Bradley MD Work Phone: [facility] 07-14-2023 11:40-0500 SaO2% (BldA) [Mass fraction] 97 % Marques Bradley MD Work Phone: [facility] 07-14-2023 11:40-0500 Systolic blood pressure 158 mm[Hg] Marques Bradley MD Work Phone: [facility] 07-14-2023 11:10-0500 Body temperature 97.2 [degF] Marques Bradley MD Work Phone: [facility] 07-14-2023 08:34-0500 Body height 170.2 cm Marques Bradley MD Work Phone: [facility] 07-14-2023 08:34-0500 Body weight 88 kg Marques Bradley MD Work Phone: [facility] 04-21-2023 09:30-0400 Body height 170.18 cm Renny Gan Other [facility] Other 04-21-2023 09:30-0400 Body mass index (BMI) [Ratio] 31.21 kg/m2 Renny Gan Other [facility] Other 04-21-2023 09:30-0400 Body weight 90.4 kg Renny Gan Other [facility] Other 04-21-2023 09:30-0400 Diastolic blood pressure 78 mm[Hg] Renny Gan Other [facility] Other 04-21-2023 09:30-0400 Systolic blood pressure 130 mm[Hg] Renny Gan Other [facility] Other 03-23-2023 07:33-0400 Diastolic blood pressure 80 mm[Hg] [employer] Judi Mikael Work Phone: [facility] 03-23-2023 07:33-0400 Heart rate 81 /min [employer] Judi Mikael Work Phone: [facility] 03-23-2023 07:33-0400 Respiratory rate 14 /min [employer] Judi Mikael Work Phone: [facility] 03-23-2023 07:33-0400 SaO2% (BldA) [Mass fraction] 95 % [employer] Judi Mikael Work Phone: [facility] 03-23-2023 07:33-0400 Systolic blood pressure 171 mm[Hg] [employer] Judijose manuel Ugaldemer Work Phone: [facility] 03-23-2023 06:20-0400 Body height 170.18 cm [employer] Judijose manuel Ugaldemer Work Phone: [facility] 03-23-2023 06:20-0400 Body temperature 97.4 [degF] [employer] Judi Mikael Work Phone: [facility] 03-23-2023 06:20-0400 Body weight 90 kg [employer] Judijose manuel Ugaldemer Work Phone: [facility] 02-19-2023 00:53-0400 Body temperature 96.98 [degF] Kaylinn Dokken [facility] 02-19-2023 00:53-0400 Diastolic blood pressure 99 mm[Hg] Kaylinn Dokken [facility] 02-19-2023 00:53-0400 Heart rate 75 /min Kaylinn Dokken [facility] 02-19-2023 00:53-0400 Respiratory rate 16 /min Kaylinn Dokken [facility] 02-19-2023 00:53-0400 SaO2% (BldA) [Mass fraction] 98 % Zabrina Santanaen [facility] 02-19-2023 00:53-0400 Systolic blood pressure 153 mm[Hg] Franklinylinn Dokken [facility] 02-15-2023 10:33-0400 Diastolic blood pressure 89 mm[Hg] [employer]PER[employer] Judi Mikael Work Phone: [facility] 02-15-2023 10:33-0400 SaO2% (BldA) [Mass fraction] 100 % [employer] Judi Mikael Work Phone: [facility] 02-15-2023 10:33-0400 Systolic blood pressure 149 mm[Hg] SUPERVISOR [employer] Judi Mikael Work Phone: [facility] 02-15-2023 10:00-0400 Heart rate 83 /min SUPER[employer] Judi Mikael Work Phone: [facility] 02-15-2023 10:00-0400 Respiratory rate 16 /min [employer] Judi Mikael Work Phone: [facility] 02-15-2023 08:06-0400 Body height 170.18 cm SUPERVISOR [employer] Judi Mikael Work Phone: [facility] 02-15-2023 08:06-0400 Body temperature 97.6 [degF] [employer]PER[employer] Judi Mikael Work Phone: [facility] 02-15-2023 08:06-0400 Body weight 89.2 kg [employer]PER[employer]OR [employer] Judi Mikael Work Phone: [facility] 10-26-2022 08:03-0500 Diastolic blood pressure 87 mm[Hg] SUPER[employer]OR [employer] Judi Mikael Work Phone: [facility] 10-26-2022 08:03-0500 Heart rate 70 /min [employer]PER[employer] Judi Mikael Work Phone: [facility] 10-26-2022 08:03-0500 Respiratory rate 18 /min [employer] Judi Youssef Work Phone: [facility] 10-26-2022 08:03-0500 SaO2% (BldA) [Mass fraction] 98 % [employer] Judi Youssef Work Phone: [facility] 10-26-2022 08:03-0500 Systolic blood pressure 161 mm[Hg] [employer]PER[employer] Judi Ugaldemer Work Phone: [facility] 10-26-2022 06:17-0500 Body height 170.18 cm SUPERVISOR [employer] Judi Ugaldemer Work Phone: [facility] 10-26-2022 06:17-0500 Body temperature 97.2 [degF] SUPER[employer] Judi Youssef Work Phone: [facility] 10-26-2022 06:17-0500 Body weight 88.9 kg [employer]PERVISOR [employer] Judi Youssef Work Phone: [facility] 07-22-2022 14:34-0500 Diastolic blood pressure 83 mm[Hg] Ospina SALAM [facility] 07-22-2022 14:34-0500 Mean blood pressure 101 mm[Hg] Ospina SALAM [facility] 07-22-2022 14:34-0500 Systolic blood pressure 136 mm[Hg] Ospina SALAM [facility] 07-22-2022 14:30-0500 Blood Pressure Location Ospina SALAM [facility] 07-22-2022 14:30-0500 Diastolic blood pressure 89 mm[Hg] Ospina SALAM [facility] 07-22-2022 14:30-0500 Heart rate 62 /min Ospina SALAM [facility] 07-22-2022 14:30-0500 Respiratory rate 16 /min Ospina SALAM [facility] 07-22-2022 14:30-0500 SaO2% (BldA) [Mass fraction] 98 % Ospina SALAM [facility] 07-22-2022 14:30-0500 Systolic blood pressure 141 mm[Hg] Ospina SALAM [facility] 04-14-2022 14:50-0400 Blood Pressure Location Monique Reddymetz [facility] 04-14-2022 14:50-0400 Body temperature 97.16 [degF] Moniquejuan luis [facility]dy[facility] 04-14-2022 14:50-0400 Diastolic blood pressure 86 mm[Hg] Moniquejuan luis Reddy[facility]my [facility] 04-14-2022 14:50-0400 Heart rate 72 /min Monique Jimmy [facility] 04-14-2022 14:50-0400 SaO2% (BldA) [Mass fraction] 97 % Monique Jimmy [facility] 04-14-2022 14:50-0400 Systolic blood pressure 131 mm[Hg] Monique Jimmy [facility] 01-28-2022 13:36-0400 Blood Pressure Location Monique Jimmy [facility] 01-28-2022 13:36-0400 Body temperature 97.52 [degF] Monique Marquez [facility] 01-28-2022 13:36-0400 Diastolic blood pressure 85 mm[Hg] Monique Castañed[facility] 01-28-2022 13:36-0400 Heart rate 73 /min Monique Castañedaz [facility] 01-28-2022 13:36-0400 SaO2% (BldA) [Mass fraction] 96 % Monique Marquez [facility] 01-28-2022 13:36-0400 Systolic blood pressure 122 mm[Hg] Monique Marquez [facility] 01-11-2022 10:15-0400 Blood Pressure Location Ospina SALAM [facility] 01-11-2022 10:15-0400 Diastolic blood pressure 106 mm[Hg] Ospina SALAM [facility] 01-11-2022 10:15-0400 Heart rate 70 /min Ospina SALAM [facility] 01-11-2022 10:15-0400 Respiratory rate 28 /min Ospina SALAM [facility] 01-11-2022 10:15-0400 SaO2% (BldA) [Mass fraction] 99 % Ospina SALAM [facility] 01-11-2022 10:15-0400 Systolic blood pressure 137 mm[Hg] Ospina SALAM [facility] 01-11-2022 10:05-0400 Blood Pressure Location Ospina SALAM [facility] 01-11-2022 10:05-0400 Diastolic blood pressure 74 mm[Hg] Ospina SALAM [facility] 01-11-2022 10:05-0400 Heart rate 67 /min Ospina SALAM [facility] 01-11-2022 10:05-0400 Respiratory rate 14 /min Ospina SALAM [facility] 01-11-2022 10:05-0400 SaO2% (BldA) [Mass fraction] 97 % Ospina SALAM [facility] 01-11-2022 10:05-0400 Systolic blood pressure 128 mm[Hg] Ospina SALAM [facility] 01-11-2022 10:00-0400 Blood Pressure Location Ospina SALAM [facility] 01-11-2022 10:00-0400 Diastolic blood pressure 79 mm[Hg] Ospina SALAM [facility] 01-11-2022 10:00-0400 Heart rate 66 /min Ospina SALAM [facility] 01-11-2022 10:00-0400 Respiratory rate 16 /min Ospina SALAM [facility] 01-11-2022 10:00-0400 SaO2% (BldA) [Mass fraction] 98 % Ospina SALAM [facility] 01-11-2022 10:00-0400 Systolic blood pressure 134 mm[Hg] Ospina SALAM [facility] 01-11-2022 09:50-0400 Body temperature 97.52 [degF] Ospina SALAM [facility] 01-11-2022 09:45-0400 Respiratory rate 15 /min Ospina SALAM [facility] 01-11-2022 09:18-0400 Body temperature 97.34 [degF] Ospina SALAM [facility] 01-11-2022 09:18-0400 Respiratory rate 20 /min [facility] SALAM [facility] Encounters Encounter Date Encounter Type Care Provider Facility Start: 08-25-2023 End: 08-25-2023 ambulatory JOEL PANCHAL [facility] Facility:[facility] Start: 07-29-2023 Orders Only Evelyn Black RN [facility] Surgery Comment on above: Gastroparesis (Prima ry Dx) Start: 07-22-2023 End: 07-22-2023 ambulatory MARQUES BRADLEY Facility:[facility] Start: 07-22-2023 Telephone encounter Evelyn Black RN General Surgery Start: 07-22-2023 End: 07-22-2023 Nutrition therapy Melissa Montalvo RD Work Phone: General Surgery Comment on above: Gastroparesis (Prima ry Dx); Malnutrition of moderate degree (HCC); Gastro-esophageal reflux disease without esophagitis; Overweight (BMI 25.0-29.9); Dietary counseling and surveillance Start: 07-22-2023 End: 07-22-2023 Telemedicine consultation with patient Melissa Montalvo RD Work Phone: [facility] Start: 07-14-2023 End: 07-14-2023 ambulatory MARQUES BRADLEY Facility:[facility] Start: 07-14-2023 End: 07-14-2023 Subsequent hospital visit by physician Marques Bradley MD Work Phone: Gastroenterology Comment on above: Dysphagia, unspecifi ed type [R13.10] Start: 07-13-2023 End: 07-13-2023 ambulatory MARQUES Patel MIRNA Facility:[facility] Start: 06-06-2023 End: 06-07-2023 ambulatory Samuel Estrella [facility] Start: 05-27-2023 Telephone encounter Evelyn Black RN General Surgery Comment on above: Results Start: 05-26-2023 End: 05-26-2023 ambulatory MARQUES BRADLEY Facility:[facility] Start: 05-25-2023 End: 05-25-2023 ambulatory JOEL PANCHAL [facility] Facility:[facility] Start: 05-25-2023 End: 05-25-2023 Nursing evaluation of patient and report Nurse [facility] 2 Work Phone: Gastroenterology Comment on above: Nausea Start: 05-16-2023 Orders Only Evelyn Black RN Gen eral Surgery Comment on above: Nausea (Primary Dx); Dysphagia, unspecified type Start: 05-06-2023 End: 05-07-2023 ambulatory MARQUES BALLMADAN Facility:[facility] Start: 05-02-2023 Telephone encounter Evelyn Black RN General Surgery Start: 04-26-2023 Telephone encounter Evelyn Black RN General Surgery Start: 04-21-2023 End: 04-21-2023 ambulatory Renny Gan Other [facility] Other Start: 04-21-2023 Office outpatient vi sit 15 minutes Renny TOUSSAINT [facility] Start: 04-18-2023 Telephone encounter Evelyn Black RN General Surgery Comment on above: [employer] - [employer] Start: 04-07-2023 Telephone encounter Guillermo Martinez DO Work Phone: Gastroenterology Comment on above: Appointment Start: 04-05-2023 End: 04-05-2023 ambulatory Imad Asaad Other [facility] Other Start: 04-05-2023 Telephone encounter Imad Asaad [facility] Start: 03-29-2023 ambulatory Facility:[facility] Start: 03-26-2023 ambulatory Facility:[id number] Start: 03-26-2023 End: 03-31-2023 Evaluation and management of inpatient Renny Hairston Lyssa Facility:[facility] Start: 03-26-2023 ambulatory Facility:[id number] Start: 03-24-2023 End: 03-24-2023 ambulatory Imad Asaad Other [facility] Other Start: 03-24-2023 Telephone encounter Imad Asaad [facility] Start: 03-23-2023 End: 03-23-2023 Emergency department patient visit Judi Joan Mikael Facility:[facility] Start: 03-23-2023 End: 03-23-2023 Emergency department patient visit [employer] Judi Ugaldemer Work Phone: [facility] Work Phone: Start: 03-22-2023 End: 03-22-2023 ambulatory Imad Asaad Other [facility] Other Start: 03-22-2023 Telephone encounter Imad Asaad [facility] Start: 03-09-2023 End: 03-09-2023 ambulatory Imad Asaad Other [facility] Other Start: 03-09-2023 Telephone encounter Imad Asaad [facility] Start: 03-01-2023 End: 03-01-2023 ambulatory Imad Asaad Other [facility] Other Start: 03-01-2023 Telephone encounter Imad Asaad [facility] Start: 02-19-2023 End: 02-19-2023 Emergency department patient visit Zabrina Patton Facility[facility] Start: 02-19-2023 End: 02-19-2023 Emergency department patient visit Zabrina Patton [facility] Start: 02-15-2023 End: 02-15-2023 Emergency department patient visit [employer] Judi Youssef Work Phone: [facility] Work Phone: Start: 11-30-2022 End: 12-01-2022 ambulatory JUDI YOUSSEF Facility:[facility] Start: 11-27-2022 End: 11-28-2022 ambulatory JUDI YOUSSEF Facility:[facility] Start: 11-26-2022 End: 11-26-2022 ambulatory Imad Curtisad Other [facility] Other Start: 11-26-2022 Telephone encounter Imad Nany [facility] Start: 11-04-2022 End: 11-04-2022 ambulatory Judi Joan Mikael Facility:[facility] Start: 11-04-2022 End: 11-04-2022 Admission to same day surgery center [employer] Judi Youssef Work Phone: [facility] [place] Work Phone: Start: 11-04-2022 End: 11-04-2022 ambulatory [employer] Judi Youssef Work Phone: [facility] Work Phone: Start: 11-01-2022 End: 11-02-2022 ambulatory JUDI MIKAEL Facility:[facility] Start: 10-26-2022 End: 10-26-2022 Emergency department patient visit Judijose manuel Franco Mikael Facility:[facility] Start: 10-26-2022 End: 10-26-2022 Emergency department patient visit [employer] Judi Youssef Work Phone: [facility] Work Phone: Start: 09-23-2022 ambulatory Monique Enrique ty:Lilo GARCIA Start: 09-21-2022 End: 09-21-2022 ambulatory JUDI YOUSSEF Facility:[facility] Start: 09-18-2022 End: 09-18-2022 ambulatory BALTAZAR GEORGES . Facility:[facility] Start: 09-14-2022 End: 09-14-2022 ambulatory EUN WILSON . Facility:[facility] Start: 09-07-2022 End: 09-07-2022 ambulatory Jennie Ayon Other [facility] Other Start: 09-07-2022 Telephone encounter Imleo Ayon [facility] Assistant [employer] Start: 09-06-2022 End: 09-07-2022 ambulatory JUDI YOUSSEF Facility:[facility] Start: 08-20-2022 End: 08-20-2022 ambulatory BALTAZAR GEORGES . Facility:[facility] Start: 08-17-2022 End: 08-18-2022 ambulatory JUDI YOUSSEF Facility:[facility] Start: 08-11-2022 End: 08-12-2022 ambulatory JUDI YOUSSEF Facility:[facility] Start: 08-08-2022 End: 08-08-2022 ambulatory KATHRIN VANCE Facility:[facility] Start: 07-22-2022 End: 07-23-2022 ambulatory [facility] Facility:[facility] Start: 07-22-2022 End: 07-22-2022 Patient encounter procedure [facility] Start: 07-21-2022 End: 07-21-[address] ONRA WINN Facility:[facility] Start: 07-15-2022 ambulatory JUDI YOUSSEF Facility: [facility] Start: 07-12-2022 Encounter for genera l adult medical examination without abnormal findings JUDI YOUSSEF [facility] Start: 07-08-2022 End: 07-09-2022 ambulatory JUDI YOUSSEF Facility:[facility] Start: 07-08-2022 End: 07-09-2022 Encounter for general adult medical examination without abnormal findings JUDI YOUSSEF Facility:[facility] Start: 07-05-2022 End: 07-05-[address] JOHNATHAN RUDOLPH Facility:[facility] Start: 06-07-2022 End: 06-07-2022 ambulatory BALTAZAR GEORGES . Facility:[facility] Start: 06-06-2022 End: 06-06-2022 ambulatory BLATAZAR GEORGES . Facility:[facility] Start: 06-04-2022 End: 06-04-[address] NORA WINN Facility:[facility] Start: 04-29-2022 End: 04-29-2022 Lab Drop off Anai REAGAN [facility] Start: 04-14-2022 End: 04-14-2022 Patient encounter procedure Monique Marquez [facility] Start: 03-27-2022 End: 03-30-2022 Evaluation and management of inpatient SHAIKH Juan Luis DAVIS Facility:[facility] Start: 03-01-2022 End: 03-01-2022 Patient encounter procedure Monique A Jimmy [facility] Start: 02-02-2022 End: 02-02-2022 ambulatory BALTAZAR Larson Facility:[facility] Start: 01-28-2022 End: 01-28-2022 Patient encounter procedure Monique Redd[facility]etz [facility] Start: 01-11-2022 End: 01-11-2022 Patient encounter procedure Anai MERARY [facility] Start: 12-24-2021 End: 12-24-2021 Patient encounter procedure JHOANA MELGOZA [facility] Start: 08-13-2019 End: 08-16-2019 Evaluation and management of inpatient LEONA MORTENSEN Facility:[facility] Procedures Date Procedure Procedure Detail Performing Clinician Start: 07-14-2023 Esophagoscp rig transoral hypopharynx crv esoph Evelyn Black RN Start: 05-25-2023 Esophageal motility study w/interp&rpt Evelyn Black RN Start: 03-23-2023 Computed tomography of abdomen and pelvis with contrast DONI Youssef Work Phone: Start: 02-15-2023 Computed tomography of abdomen and pelvis with contrast [employer]VISOR [employer] Judi Youssef Work Phone: Start: 11-04-2022 CT of small intestine SUPERVISOR [employer] Judi Youssef Work Phone: Start: 10-26-2022 Computed tomography of abdomen and pelvis with contrast SUPERVISOR [employer] Judi Youssef Work Phone: Start: 01-11-2022 Esophagogastroduodenoscopy Anai REAGAN Start: 05-13-2021 Esophagogastroduodenoscopy JHOANA Vázquez Start: 09-30-2020 Esophagogastroduodenoscopy JHOANA Vázquez Start: 03-13-2020 Colonoscopy JHOANA MELGOZA Start: 01-30-2020 Esophagogastroduodenoscopy JHOANA Vázquez Start: 08-15-2019 FLUOROSCOPY OF UPPER GI AND SMALL BOWEL USING OTHER CONTRAST ORESTES CONDON Start: 05-17-2019 Colonoscopy JHOANA MELGOZA Start: 05-17-2019 Esophagogastroduodenoscopy JHOANA Vázquez Start: 03-02-2019 Hernia surgical mesh (physical object) JHOANA MELGOZA Comment on above: Dr. Mortensen in [place]. Hernia repair JHOANA MELGOZA Hysterectomy JHOANA MELGOZA Plan of Treatment Date Care Activity Detail Author Start: 05-06-2023 Covid-19 Vaccine () Covid-19 Vaccine () [facility] Start: 05-06-2023 Influenza vaccination [facility] Start: 09-05-2022 DEPRESSION ASSESSMENT DEPRESSION ASS ESSMENT [facility] Start: 01-01-2022 COVID-19 VACCINE (4 - Pfizer series) COVID-19 VACCINE (4 - Pfizer series) [facility] Start: 2020 SHINGRIX VACCINE (1 of 2) SHINGRIX VACCINE (1 of 2) [facility] Start: 2015 COLOGUARD (FIT-DNA) COLOGUARD (FIT-D NA) [facility] Start: 2015 Colonoscopy COLONOSCOPY [facility] Start: 2015 COLORECTAL CANCER SCREENING COLORECTAL CANCER SCREENING [facility] Start: [address] COLONOGRAPHY [facility] Start: 2015 DIABETES SCREEN DIABETES SCREEN [facility] Start: 2015 Diabetes Screening Diabetes Screenin g [facility] Start: 2015 FECAL OCCULT BLOOD FECAL OCCULT BLOO D [facility] Start: 2015 Lipid 1996 panel - S cristine or Plasma Lipid Screening [facility] Start: 2015 LIPID SCREEN LIPID SCREEN [facility] Start: 2015 SIGMOIDOSCOPY SIGMOIDOSCOPY [facility] Start: 2010 Mammography [facility] Start: 2000 HPV TESTING HPV TESTING [facility] Start: 1991 PAP TESTING PAP TESTING [facility] Start: 1989 Urine microalbumin profile [facility] Start: 1988 HEPATITIS C SCREENING HEPATITIS C SC REENING [facility] Start: 1988 HIV SCREENING HIV SCREENING [facility] Start: 1970 COVID-19 VACCINE (#1) COVID-19 VACCI NE (#1) [facility] Start: 1970 HEPATITIS B (1 of 3 - 3-dose series) HEPATITIS B (1 of 3 - 3-dose series) [facility] Start: 1970 Hepatitis B Vaccine (1 of 3 - 3-dose series) Hepatitis B Vaccine (1 of 3 - 3-dose series) [facility] End: 07-29-2024 EGD - THERAPEUTIC, EUS, OR TUBE INTERVENTIONS EGD - THERAPEUTIC, EUS, OR TUBE INTERVENTIONS Endoscopy Routine Gastroparesis 1 Occurrences starting 07/29/2023 until 07/29/2024 [facility] Work Phone: Comment on above: 1 Occurrences starti ng 07/29/2023 until 07/29/2024 End: 05-16-2024 Esophageal motility study w/interp&rpt MANOMETRY ESOPHAGEAL Endoscopy Routine Nausea 1 Occurrences starting 05/16/2023 until 05/16/2024 [facility] Work Phone: Comment on above: 1 Occurrences starti ng 05/16/2023 until 05/16/2024 Esophageal motility study w/interp&rpt MANOMETRY ESOPHAGEAL Endoscopy Routine Nausea 05/25/2023 [facility] Work Phone: End: 06-14-2024 Gastric emptying imaging study NM GASTRIC EMPTYING SOLID Radiology Routine Nausea 1 Occurrences starting 05/16/2023 until 06/14/2024 [facility] Work Phone: Comment on above: 1 Occurrences starti ng 05/16/2023 until 06/14/2024 Patient Education [facility] Work Phone: Patient referral [facility] Work Phone: SURGICAL PATHOLOGY [facility] Work Phone: Comment on above: Release Upon Orderin g for 1 Occurrences starting 07/14/2023, 1 completed [facility] Immunizations Immunization Date Immunization Notes Care Provider Jamal jackson 06-09-2022 influenza virus vaccine, unspecified formulation Nurse 2 Work Phone: [facility] 03-18-2022 SARS-CoV-2 mRNA (ahewnsndgqd-tqqn-hjo jett) vaccine [facility]spina [facility] 11-06-2021 SARS-CoV-2 (COVID-19 ) mRNA BNT-162b2 vax [facility]spina [facility] 05-06-2021 influenza virus vaccine, unspecified formulation JHOANA MELGOZA [facility] 02-26-2021 SARS-CoV-2 (COVID-19 ) mRNA BNT-162b2 vax JHOANA MELGOZA [facility] 02-05-2021 SARS-CoV-2 (COVID-19 ) mRNA BNT-162b2 frantz REAGAN [facility] Comment on above: Result Comment: 2021: [id number] NEGATED: Highlighted row has not occurred!04-14-2022 influenza virus vaccine, unspecified formulation Monique Marquez [facility] Payers Date Payer Category Payer Unknown RINA MARTINEZ SS PPO [id number] 2022-Present [phone] [address] [place] [address] PPO [id number] 2018 Private Health Insurance [id number] 2018 Private Health Insurance [facility] CHOICE PLUS [id number] 2018-Present [phone] [address] [place] [address] HMO [id number] 1970 Unknown [id number] 2.16.840.1.247486.3.579.2 .647 1970 Unknown [id number] 2.16.840.1.265855.3.579.2 .593 1970 Unknown [id number] 2.16.840.1.946784.3.579.2 .593 1970 Unknown [id number] 2.16.840.1.826788.3.579.2 .593 1970 Unknown [id number] 2.16.840.1.755818.3.579.2 .593 1970 Unknown [id number] 2.16.840.1.495424.3.579.2 .593 1970 Unknown [id number] 2.16.840.1.344387.3.579.2 .593 1970 Unknown [id number] 2.16.840.1.282188.3.579.2 .593 1970 Unknown [id number] 2.16.840.1.143224.3.579.2 .593 1970 Unknown [id number] 2.16.840.1.865476.3.579.2 .593 1970 Unknown [id number] 2.16.840.1.667268.3.579.2 .593 1970 Unknown [id number] 2.16.840.1.446744.3.579.2 .593 1970 Unknown [id number] 2.16.840.1.219014.3.579.2 .593 1970 Unknown [id number] 2.16.840.1.660996.3.579.2 .593 1970 Unknown [id number] 2.16.840.1.185748.3.579.2 .593 1970 Unknown [id number] 2.16.840.1.562590.3.579.2 .593 1970 Unknown [id number] 2.16.840.1.291486.3.579.2 .593 1970 Unknown [id number] 2.16.840.1.807353.3.579.2 .593 1970 Unknown [id number] 2.16.840.1.347585.3.579.2 .593 1970 Unknown [id number] 2.16.840.1.191888.3.579.2 .593 1970 Unknown [id number] 2.16.840.1.395043.3.579.2 .593 1970 Unknown [id number] 2.16.840.1.303166.3.579.2 .356 1970 Unknown [id number] 2.16.840.1.813614.3.579.2 .356 1970 Unknown [id number] 2.16.840.1.907230.3.579.2 .727 1970 Unknown [id number] 2.16.840.1.622771.3.579.2 .727 1970 Unknown [id number] 2.16.840.1.326050.3.579.2 .727 1970 Unknown [id number] 2.16.840.1.852950.3.579.2 .727 1959 Medicaid [id number] 1959 Self-pay [id number] 1959 Unknown [id number] 1959 Unknown [id number] Medicare Medicare [id number] Unknown [id number] 2.16.840.1.009868.3.579.2 .531 Unknown [id number] 2.16.840.1.160491.3.579.2 .531 Unknown [id number] 2.16.840.1.243537.3.579.2 .531 Unknown [id number] 2.16.840.1.533186.3.579.2 .531 Unknown [id number] 2.16.840.1.707862.3.579.2 .531 Worker's Compensation [employer] Self [facility] [id number] Social History Date Type Detail Facility Start: 12-03-2021 End: 05-06-2023 Tobacco smoking status Ex-smoker (finding) [facility] Start: 08-12-2020 End: 05-06-2023 Sex Assigned At Female [facility] Tobacco smoking status Never Jone [facility] Start: 1970 Sex Assigned At Female [facility] End: 09-05-2011 History of tobacco use Current smoker [facility] Work Phone: End: 09-05-2011 History of tobacco use Cigarette Smoker [facility] Work Phone: Start: 04-28-2018 End: 05-06-2023 Tobacco use and exposure Smokeless tobacco non-user [facility] Work Phone: Start: 04-28-2018 End: 05-06-2023 Alcohol intake Current drinker of alcohol (finding) [facility] Start: 08-12-2020 End: 05-06-2023 History of Social function [facility] Start: 04-28-2018 End: 05-06-2023 Tobacco Comment still smokes [facility] Start: 04-28-2018 Alcohol Comment social [facility] Start: 1970 Sex Assigned At Not on file [facility] Start: 07-14-2023 Alcohol intake Ex-drinker (finding) [facility] Functional Status Date Assessment Result Facility 02-19-2023 Functional Status N/A [facility] 07-22-2022 Functional Status N/A [facility] 04-14-2022 Functional Status N/A [facility] Clinical Notes 12-02-2021 to 08-25-2023 Evelyn Black RN - 07/29/2023 11:17 AM ESTPatient InstructionsTelephone Encounter - Evelyn Black RN - 07/22/2023 3:[address] - 07/22/2023 1:15 PM EST Note Date & Type Note Facility 08-25-2023 Note HNO ID: [id number] Author: Ellis Mayberry DO Service: ? Author [...] August 25, 2023 TIME: 2:59 PM CSN: [id number] [facility] 08-25-2023 Note Q3 Patient Name: Constantino Cardoso Procedure Date: 08/25/2023 2:38 PM Date of : 1970 Admit Type: Outpatient Age: 53 Gender: Female Note Status: Finalized Attending MD: Marques Bradley MD, [id number] Procedure: Upper GI endoscopy Indications: Gastroparesis- for [...] the patient. Procedure Code(s): --- Professional --- 11654 Diagnosis Code(s): --- Professional --- K44.9 Z98.890 CPT copyright 2020 [employer]. All rights reserved. Attending Participation: I personally performed the entire procedure. Scope In: 2:59:10 PM Scope Out: 3:37:20 PM MD Marques Rainey MD 08/25/2023 3:41:00 PM This report has been signed electronically by Marques Bradley MD Number of Addenda: 0 Note Initiated On: 08/25/2023 2:38 PM [facility] 07-29-2023 Note HNO ID: [id number] Author: Evelyn Black RN Service: ? Author Type: Registered Nurse Type: Progress Notes Filed: 07/29/2023 11:18 AM Note Text: e [facility] 07-29-2023 History of Present illness Narrative e documented in this encounter [facility] 07-22-[address] - 07/22/2023 [...] High Protein, Atkins, Boost Glucose Control, Owyn, [place] Breakfast Essentials Light Start mixed with Fairlife [...] calories, no carbonation, no caffeine. Protein juarez (hzisirn6p, Isopure, Gatorade protein), electrolyte drinks (Gatorade or Powerade zero, sugar free liquid IV or Drip Drop), sugar free jello and sugar free popsicles are also acceptable. Nutrition Monitoring & Evaluation: increase PO intake >75% of estimated needs, weight check and patient update Need for Follow up: based on surgery status documented in this encounter [facility] 07-22-2023 Note HNO ID: [id number] Author: Melissa Montalvo RD Service: ? Author Type: Registered Dietitian Type: Progress Notes Filed: 07/22/2023 4:06 PM Note Text: The [facility] Nutrition Therapy: Virtual Consult - Initial Assessment I have communicated my name and active licensure. The patient?s identity and physical location were verified at the time of this visit. Either the patient or their legal insurance sales representative has been informed of the [...] High Protein, Atkins, Boost Glucose Control, [place], [place] Breakfast Essentials Light Start mixed with Fairlife [...] calories, no carbonation, no caffeine. 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 [place] body weight: 159 lbs. 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 [facility] 07-22-2023 Miscellaneous Notes BMI SPECIALTY CARE COORDINATION TELEPHONE ENCOUNTER Pt was seen in clinic and an EGD was ordered and completed. Recommendation was a GPOEM. Will consult with surgeon next week regarding next POC for pt. Pt VU. documented in this encounter [facility] 07-22-2023 History of Present illness Narrative The [facility] Nutrition Therapy: Virtual Consult - Initial Assessment I have communicated my name and active licensure. The patient s identity and physical location were verified at the time of this visit. Either the patient or their legal insurance sales representative has been informed of the [...] High Protein, Atkins, Boost Glucose Control, [place], [place] Breakfast Essentials Light Start mixed with Fairlife fat free or 1% milk. -Check www.bariatricfusion.com or www.[employer].com for additional options. Take small bites, eat slowly, chew food well, and always eat protein first. Separate eating and drinking by 30 min before and after. Aim for >64 oz water/day. Take small sips and avoid straws. Liquids should be sugar-free, no calories, no carbonation, no caffeine. 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 [place] body weight: 159 lbs. 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 Procedure Code(s): --- Professional --- 46888 Diagnosis Code(s): --- Professional --- K44.9 K31.89 Z98.890 R10.13 CPT copyright 2020 [employer]. All rights reserved. Attending Participation: I personally performed the entire procedure. Scope In: 10:40:19 AM Scope Out: 10:50:37 AM MD Marques Rainey MD 07/14/2023 10:53:09 AM This report has been signed electronically by Marques Bradley MD Number of Addenda: 0 Note Initiated On: 07/14/2023 10:24 AM [facility] 07-14-2023 Nurse Note 1121: Dr. Mehrdad Carter [...] In Department: GASTROENTEROLOGY documented in this encounter [facility] 07-13-2023 Note HNO ID: [id number] Author: Brennen Shaw, PhD Service: ? Author Type: Physician Type: Progress Notes Filed: 07/19/2023 10:07 AM Note Text: [facility]IAT[facility] SURGERY BEHAVIORAL [facility]ALTH EVALUATION DATE OF SERVICE: July 13, 2023 TIME OF SERVICE: 2:10 PM-3:29 PM COST CENTER: [facility] CPT CODE: - 64364 Brief Emotional/Behavioral Assessment with scoring/documentation - [id number] Virtual Psych Diagnostic Eval BILLING CODE: ENDO PSYL MAIN 12221/Marco DATE OF FIRST SERVICE THIS CYCLE: July 13, 2023 SESSION #: 1 BMI Surgical Pathway Visit type: Bariatric Surgeon Visit I have communicated my name and active licensure. The patient's identity and physical location were verified at the time of this visit. Either the patient or their legal insurance sales representative has been informed of the [...] other people who have undergone the procedure (mcfp Specific areas of understanding that should be [...] the binge episod (more content not included)... [facility] 05-27-2023 Miscellaneous Notes BMI SPECIALTY CARE COORDINATION TELEPHONE ENCOUNTER Pt contacted today regarding testing ordered when she had a consult with Dr Bradley. Manometry was normal and her GES was severely delayed. Reviewed results and will discuss with if POP is the next plan of care. Will update pt. Pt agreed with plan. documented in this encounter [facility] 05-26-2023 Note HNO ID: [id number] Author: Nabil Bell RT(R) Service: Nuclear Medicine [...] 715 PATIENT DISCHARGED TO: Ambulatory patient, left [place] department area. A Diagnostic radioactive procedure has taken place, with no further precautions necessary other than routine body substance precautions. More information regarding radiation safety can be found using this link: [email or web address] SIGNATURE: RT Charmaine(R) PATIENT NAME: Constantino Cardoso DATE: May 26, 2023 TIME: 7:17 AM PAGER/CONTACT #: [facility] 05-25-2023 Note HNO ID: [id number] Author: Pedro Gonzalez LPN Service: ? Author Type: LICENSED NURSE Type: Progress Notes Filed: 05/25/2023 4:15 PM Note Text: Name: Constantino Cardoso [facility]#: [id number] Date: 05/25/2023 ESOPHAGEAL MANOMETRY TEST Indication: Nausea [...] the test without difficulty. .Pedro Gonzalez LPN [facility] 05-25-2023 History of Present illness Narrative Name: Constantino Cardoso [facility]#: [id number] Date: 05/25/2023 ESOPHAGEAL MANOMETRY TEST Indication: Nausea [...] .Pedro Gonzalez LPN documented in this encounter [facility] 05-16-2023 Miscellaneous Notes BMI SPECIALTY CARE COORDINATION [...] a gastric bypass. documented in this encounter [facility] 05-06-2023 Note HNO ID: [id number] Author: Marques Bradley MD Service: ? Author [...] for internal providers or letter via the [employer] for external providers. Chief Complaint: [...] Bradley MD Date: 05/12/2023 Time: 8:15 AM [facility] 05-02-2023 Miscellaneous Notes BMI SPECIALTY CARE COORDINATION TELEPHONE ENCOUNTER Chief complaint & duration dysphagia. Type of procedure: hernia repair hiatal with Dr. MORTENSEN in [place] February of 2019. Sending OP notes Nursing assessment (subjective/objective) . pain in chest area and getting worse Went to [place] ED March 2023 who told her she needed a stent in her heart..but her c/o were difficulty swallowing and sent pt home and referred her to [facility] and was there in the hospital for [...] after records obtained documented in this encounter [facility] 04-26-2023 Miscellaneous Notes [facility] SPECIALTY CARE COORDINATION TELEPHONE ENCOUNTER Second attempt to contact this pt. Pt has upcoming information, and unable to complete any chart prep, history, symptoms, testing etc. LVM and call back number. documented in this encounter [facility] 04-21-2023 Evaluation note Encounter Date Diagnosis Assessment Notes Apr, Esophageal dysmotility (ICD-10 - K22.4) Apr, Esophageal spasm (ICD-10 - K22.4) Apr, Nausea & vomiting (ICD-10 - R11.2) Patinet reports that she still has nausea but no vomiting Patient reports that she is to see Dr. Strong at [facility] Patient is to start dicyclomine 20 mg 4 times daily sent to [facility] today RTO 6 weeks Apr, Dysphagia (ICD-10 - R13.10) [facility] Other 08-14-2023 Miscellaneous Notes* Telephone Encounter - Evelyn Black RN - 04/18/2023 2:13 PM EDT [facility] SPECIALTY CARE COORDINATION TELEPHONE ENCOUNTER Contacted pt regarding a referral from Dr Martinez's office. LVM and call back number. [facility] Miscellaneous Notes* Telephone Encounter - Yancy Lopez - 04/07/2023 1:15 PM EDT Ref[facility]'d [facility] Evaluation + Plan note Extracted from: Title:ED [...] pain, # 20 tab(s), Refills(s) 0, Pharmacy: [facility]/pharmacy #[id number], 170, cm, 02/19/23 0:56:00 EDT, Height/Length Dosing, 90.2, kg, 02/19/23 0:56:00 EDT, Weight Dosing XR Elbow 3+ Views Right XR Wrist 3+ Views Right [facility]06-17-2023 Hospital Discharge instructions Patient Education 02/19/2023 [...] are safe for you. General instructions Take duwv-fwv-eqwazog and prescription medicines only as told by [...] provider. Document Revised: 12/29/2020 Document Reviewed: 12/29/2020 [employer] Patient Education 2022 [employer]. Follow Up Care 02/19/2023 00:51:16 With:JUDI YOUSSEF Address: [address] [place] [address] [phone] Business (1) When:02/22/2023 Comments:Take the pain medication as prescribed as needed for pain. Please follow-up with your primary care doctor in the next 2 to 3 days for further evaluation management. Please return to the ED for any new or worsening symptoms or [facility]08-10-2022 Hospital Discharge instructions Patient Education 04/14/2022 [...] water added (diluted fruit juice). Eat bland, ecag-rp-tdqfko foods in small amounts as you are able. These foods include bananas, applesauce, rice, lean meats, toast, and crackers. Avoid fluids that contain a lot of sugar or caffeine, such as energy drinks, sports drinks, and soda. Avoid alcohol. Avoid spicy or fatty foods. General instructions Take dwiw-nhf-vsaarxg and prescription medicines only as told by your health care provider. Drink enough fluid to keep your urine pale yellow. Wash your hands often using soap and water. If soap and water are not available, use hand collections director. Make sure that all people in your [...] eating and drinking to prevent dehydration. Take medp-xdb-hvjyeig and prescription medicines only as told by [...] 08/22/2006 Document Revised: 12/14/2019 Document Reviewed: 01/30/2019 [employer] Patient Education 2020 [employer]. Follow Up Care 01/28/2022 13:58:23 With:Monique Marquez CNP Address: When:3 months [facility] 05-26-2022 Hospital Discharge instructions Patient [...] drinks. ?Tomatoes and foods made with tomatoes. ?[place] or spicy foods. ?Chocolate and peppermint. Do not drink alcohol. General instructions Take aryl-zdn-aqdqgjq and prescription medicines only as told by [...] 11/11/2004 Document Revised: 12/18/2018 Document Reviewed: 12/18/2018 [employer] Patient Education 2020 [employer]. Follow Up Care 01/13/2022 12:36:01 With:Monique Marquez CNP Address: When:3 months [facility] 05-09-2022 Hospital Discharge instructions Patient Education 01/11/2022 09:56:58 Endoscopy, Care After Procedure [facility] Endoscopy Care After Procedure Please read [...] Document Re-Released: 02/13/2007 ExitCare Patient Information 2010 [employer]. 01/11/2022 09:56:58 Pearce's Esophagus Pearce's Esophagus Pearce's [...] drinks. ?Tomatoes and foods made with tomatoes. ?[place] or spicy foods. ?Chocolate and peppermint. Do not drink alcohol. General instructions Take qjpr-zrj-rodvuhf and prescription medicines only as told by [...] 11/11/2004 Document Revised: 12/18/2018 Document Reviewed: 12/18/2018 [employer] Patient Education 2020 [employer]. Follow Up Care 12/03/2021 15:32:26 With:Anai REAGAN Address: [address] [place] [address] Business (1) When:1 to 2 weeks Comments:Call for any problems. [facility]03[facility]2022 Hospital Discharge instructions Follow Up Care 12/02/2021 10:32:32 With:JHOANA MELGOZA PA-C, URL Address: [address] [place] [address] When: Unknown [facility] Evaluation + Plan note Future Appointments Appointment Date:01/11/2022 09:40:00 AM Scheduled Provider: Location:[facility] Appointment Type:Surgery FT [facility] Evaluation + Plan note Future Appointments Appointment Date:04/14/2022 03:00:00 PM Scheduled Provider:Monique Marquez CNP Location[facility] Appointment Type:[facility] Follow Up Future Scheduled Tests Radiology* NM Gastric Emptying Study 01/28/22 [facility] Evaluation + Plan note Future Appointments Appointment Date:04/14/2022 03:00:00 PM Scheduled Provider:Monique Marquez CNP [facility] Appointment Type:BAD [facility] Future Appointments Appointment Date:04/20/2022 12:00:00 PM Scheduled Provider: [facility] Appoint[facility] Type:US Abdominal/Pelvis () Appointment Date:06/02/2022 09:45:00 AM Scheduled Provider:Anai REAGAN MD Location[facility] Appointment Type:[facility] Follow Up Future Scheduled Tests Laboratory* Fecal WBC Lactoferrin 04/14/22 * Giardia lamblia, Direct Detection EIA 04/14/22 * O & P Exam, Routine 04/14/22 * Clostridium difficile by PCR 04/14/22 * Enteric Panel by PCR 04/14/22 * CBC w/ Auto Diff 04/14/22 * Comprehensive Metabolic Panel 04/14/22 Radiology* US Abdomen Complete 04/20/22 [facility] Evaluation + Plan note Future Appointments Appointment Date:06/02/2022 09:45:00 AM Scheduled Provider:Anai REAGAN MD Location:[facility] Appointment Type:[facility] Follow Up Diagnostic Tests Pending * O & P Exam, Routine 04/29/22 * Giardia lamblia, Direct Detection EIA 04/29/22 [facility]No assessment information available [facility] Work Phone: Evaluation noteNo InformationNophelps health [employer] Other Evaluation note* Diagnosis Nausea- Primary Nausea alone Dysphagia, unspecified type documented in this encounter [facility] note* Diagnosis Nausea Nausea alone [facility] Dysphagia, unspecified type Gastroparesis History of Ramiro fundoplication Personal history of surgery to other organs [facility]* Diagnosis Gastroparesis- Primary Malnutrition of moderate degree (HCC) Malnutrition of moderate degree Gastro-esophageal reflux disease without esophagitis Esophageal reflux Overweight (BMI 25.0-29.9) Overweight Dietary counseling and surveillance Dietary surveillance and counseling documented [facility]* Diagnosis Gastroparesis- Primary documented in this encounter [facility] general Narrative - Reported* Type Description Date Medical History mitral valve prolapse Medical History gallstones Medical History Acid reflux Medical History Hiatal Hernia Medical History headache Surgical History hysterectomy Surgical History cholecystectomy Surgical History hiatal hernia repair Hospitalization History see above Hospitalization History kindey infections hospit alized x3 [facility] Other Hospital course Narrative No data available for this section [facility] Discharge instructions No data available for this section [facility] Additional Instructions Follow-up with your primary care doctor Return to ED if develop worsening symptoms or [facility] Work Phone: Hospital Discharge instructions Additional Instructions If your symptoms return/worsen or you develop any further concerns or symptoms please see your doctor or return to the emergency department immediately. Please be sure to continue follow-up with the aquatic ecologist and with your scheduled EGD and further testing.[facility] Work Phone: Progress note No data available for this section [facility] Diagnostic Procedure Only (Routine) - Authorized Specialty Diagnoses / Procedures Referred By Eileen t Referred To Contact MOLECULAR & FUNCTIONAL IMAGING Diagnoses Nausea Procedures NM GASTRIC EMPTYING SOLID GASTRIC EMPTYING STUDY Marques Bradley MD [address] [place] [address] Molecular & Functional Imaging [address] [place] [address] Referral ID Status Reason Start Date Expiration Date Visits Requested Visits Authorized [id number] Authorized Auto-Generat ed Referral 05/16/2023 06/14/2024 1 1 * Outpatient Procedure (Routine) - Authorized Specialty Diagnoses / Procedures Referred By Eileen mueller Referred To Contact [facility] Diagnoses Nausea Procedures MANOMETRY ESOPHAGEAL ESOPHAGEAL MOTILITY STUDY W/INTERP&RPT Marques Bradley MD [address] [place] [address] [address] Referral ID Status Reason Start Date Expiration Date Visits Requested Visits Authorized [id number] Authorized Auto-Generat ed Referral 05/16/2023 05/16/2024 1 1 [facility] for referral (narrative)* Outpatient Procedure (Routine) - Closed Specialty Diagnoses / Procedures Referred By Eileen mueller Referred To Contact [facility] Diagnoses Dysphagia, unspecified type Gastroparesis History of Ramiro fundoplication Procedures EGD - THERAPEUTIC, EUS, OR TUBE INTERVENTIONS ESOPHAGOGASTRODUODENOSCOPY TRANSORAL DIAGNOSTIC STOMACH SURGERY PROCEDURE UNLISTED Marques Bradley MD [address] [place] [address] [address] Referral ID Status Reason Start Date Expiration Date V isits Requested Visits Authorized [id number] Closed Auto-Generate d Referral 05/27/2023 05/27/2024 1 1 [facility] for referral (narrative)* Outpatient Procedure (Routine) - Authorized Specialty Diagnoses / Procedures Referred By Eileen t Referred To Contact [facility] Diagnoses Gastroparesis Procedures EGD - THERAPEUTIC, EUS, OR TUBE INTERVENTIONS ESOPHAGOGASTRODUODENOSC OPY TRANSORAL DIAGNOSTIC STOMACH SURGERY PROCEDURE UNLISTED Marques Bradley MD [address] [place] [address] [address] Referral ID Status Reason Start Date Expiration Date Visits Requested Visits Authorized [id number] Authorized Auto-Generat ed Referral 3 07/29/2024 1 1 [facility] for visit Narrative* Outpatient Procedure (Routine) - Closed Specialty Diagnoses / Procedures Referred By Contac t Referred To Contact [facility] Diagnoses Dysphagia, unspecified type Gastroparesis History of Ramiro fundoplication Procedures EGD - THERAPEUTIC, EUS, OR TUBE INTERVENTIONS ESOPHAGOGASTRODUODENOSCOPY TRANSORAL DIAGNOSTIC STOMACH SURGERY PROCEDURE UNLISTED Marques Bradley MD [address] [place] [address] [address] Referral ID Status Reason Start Date Expiration Date V isits Requested Visits Authorized [id number] Closed Auto-Generate d Referral 05/27/2023 05/27/2024 1 1 [facility] Summary Purpose Family History No Family History [...] 018 10:23am Hospital Course Note MR#: [id number] [facility] Pt. Name: Constantino Cardoso Admitted: 08/13/2019 Discharged: [...] a 49-year-old female, who was transferred to [facility] from [facility] with acute abdominal pain. The pain has started on Tuesday while at work. 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 The pain feels similar to when she was here in April during her stay. During that time, she was told there was nothing left for Dr. Mortensen to do and she has been following up with GI specialist in [place]. She is actually due to have an EGD on August 22, 2019. She has been having nausea, but no vomit (more content not included)... Chief Complaint and Reason for Visit Chief Complaint stomach pain/hx marium Chief Complaint stomach pain/hx marium R10.9 K59.00 Chief Complaint abd pain stomach pian/vomiting Additional Source Comments INFORMATION SOURCE (unrecogn ized section and content) DATE CREATED AUTHOR 06/03/2020 [facility] DATE CREATED AUTHOR AUTHOR'S ORGANIZ ATION 01/17/2023 [facility] DATE CREATED AUTHOR AUTHOR'S ORGANIZ ATION 04/02/2023 [facility] DATE CREATED AUTHOR AUTHOR'S ORGANIZ ATION 05/16/2023 [facility] DATE CREATED AUTHOR AUTHOR'S ORGANIZ ATION 06/11/[address] [facility] DATE CREATED AUTHOR AUTHOR'S ORGANIZ ATION 08/26/2023 [facility] Care Team (unrecognized sect ion and content) [...] Active Pete Thakkar DO Emergency Provider Active Assistant Restaurant General Manager Relationship Specialty Start Date End Date Joel Alejandra PCP - General Family Medicine 04/26/18 Rafa Rangel [address] [place] [phone] Referring General Surgery 04/26/18 Assistant Restaurant General Manager Relationship Specialty Start Date End Date Joel Alejandra PCP - General Family Medicine 04/26/18 Rafa Rangel [address] [place] [address] Referring General Surgery 04/26/18 Assistant Restaurant General Manager Relationship Specialty Start Date End Date Joel Alejandra PCP - General Family Medicine 04/26/18 Rafa Rangel [address] [place] [address] Referring General Surgery 04/26/18 Assistant Restaurant General Manager Relationship Specialty Start Date End Date Joel Alejandra PCP - General Family Medicine 04/26/18 Rafa Rangel [address] [place] [address] Referring General Surgery 04/26/18 Assistant Restaurant General Manager Relationship Specialty Start Date End Date Joel Alejandra PCP - General Family Medicine 04/26/18 Rafa Rangel [address] [place] [phone] Referring General Surgery 04/26/18 Assistant Restaurant General Manager Relationship Specialty Start Date End Date Joel Alejandra PCP - General Family Medicine 04/26/18 Rafa Rangel [address] [place] [address] Referring General Surgery 04/26/18 Assistant Restaurant General Manager Relationship Specialty Start Date End Date Joel Alejandra PCP - General Family Medicine 04/26/18 Rafa Rangel [address] [place] [address] Referring General Surgery 04/26/18 Assistant Restaurant General Manager Relationship Specialty Start Date End Date Joel Alejandra PCP - General Family Medicine 04/26/18 Rafa Rangel [address] [place] [address] [facility] [address] [place] [phone] Referring General Surgery 04/26/18 Assistant Restaurant General Manager Relationship Specialty Start Date End Date Joel Alejandra PCP - General Family Medicine 04/26/18 Rafa Rangel [address] [place] [address] [facility] [address] [place] [phone] Referring General Surgery 04/26/18 Assistant Restaurant General Manager Relationship Specialty Start Date End Date Joel Alejandra PCP - General Family Medicine 04/26/18 Rafa Rangel [address] [place] [phone] Referring General Surgery 04/26/18 Assistant Restaurant General Manager Relationship Specialty Start Date End Date Joel Alejandra PCP - General Family Medicine 04/26/18 Rafa Rangel [address] [phone] Referring General Surgery 04/26/18 Goals (unrecognized section and content) Goals may be documented in a n alternate section REASON FOR VISIT (unrecogniz ed section and content) Reason Comments Appointment Reason Comments Hair Spinner - Other Reason Onset Date Comments Procedure 05/25/2023 Manometry Esopha geal Specialty Diagnoses / Procedures Referred By Contac t Referred To Contact [facility] Diagnoses Nausea Procedures MANOMETRY ESOPHAGEAL ESOPHAGEAL MOTILITY STUDY W/INTERP&RPT Marques Bradley MD [address] [place] [address] [address] Referral ID Status Reason Start Date Expiration Date V isits Requested Visits Authorized [id number] Closed Auto-Generate d Referral 05/16/2023 05/16/2024 1 1 Reason Comments Results Reason Comments Patient Education Assessment Source Comments (unrecognize d section and content) In the event this informatio n is protected by the Federal Confidentiality of Alcohol and Drug Abuse Patient Records regulations: The Federal rules restrict any use of the information to criminally investigate or prosecute any alcohol or drug abuse patient.[facility] the event this information is protected by the Federal Confidentiality of Alcohol and Drug Abuse Patient Records regulations: The Federal rules restrict any use of the information to criminally investigate or prosecute any alcohol or drug abuse patient.[facility] the event this information is protected by the Federal Confidentiality of Alcohol and Drug Abuse Patient Records regulations: The Federal rules restrict any use of the information to criminally investigate or prosecute any alcohol or drug abuse patient.[facility] the event this information is protected by the Federal Confidentiality of Alcohol and Drug Abuse Patient Records regulations: The Federal rules restrict any use of the information to criminally investigate or prosecute any alcohol or drug abuse patient.[facility] the event this information is protected by the Federal Confidentiality of Alcohol and Drug Abuse Patient Records regulations: The Federal rules restrict any use of the information to criminally investigate or prosecute any alcohol or drug abuse patient.[facility] the event this information is protected by the Federal Confidentiality of Alcohol and Drug Abuse Patient Records regulations: The Federal rules restrict any use of the information to criminally investigate or prosecute any alcohol or drug abuse patient.[facility] the event this information is protected by the Federal Confidentiality of Alcohol and Drug Abuse Patient Records regulations: The Federal rules restrict any use of the information to criminally investigate or prosecute any alcohol or drug abuse patient.[facility] the event this information is protected by the Federal Confidentiality of Alcohol and Drug Abuse Patient Records regulations: The Federal rules restrict any use of the information to criminally investigate or prosecute any alcohol or drug abuse patient.[facility] the event this information is protected by the Federal Confidentiality of Alcohol and Drug Abuse Patient Records regulations: The Federal rules restrict any use of the information to criminally investigate or prosecute any alcohol or drug abuse patient.[facility] the event this information is protected by the Federal Confidentiality of Alcohol and Drug Abuse Patient Records regulations: The Federal rules restrict any use of the information to criminally investigate or prosecute any alcohol or drug abuse patient.[facility] the event this information is protected by the Federal Confidentiality of Alcohol and Drug Abuse Patient Records regulations: The Federal rules restrict any use of the information to criminally investigate or prosecute any alcohol or drug abuse patient.[facility] the event this information is protected by the Federal Confidentiality of Alcohol and Drug Abuse Patient Records regulations: The Federal rules restrict any use of the information to criminally investigate or prosecute any alcohol or drug abuse patient.[facility] FOR RECORDS PERTAINING TO PATIENTS WHO ARE [...] BE BASED ON THE PRIMARY CLINICAL RECORDS. [facility]. provides no warranty or guarantee of the accuracy or completeness of information in this document.
[2023-10-12 07:57] VITALS: BP 144/80; PULSE 60; RESP 20; TEMP 36.7; O2SAT 97; BMI 28.3
[2023-10-12] MEDS: LACTATED RINGER'S SOLUTION 1,000 ML 125 ML IV ×2 (08:50→17:05)
[2023-10-12] MEDS: ENOXAPARIN SODIUM 40 MG/0.4 ML SYRINGE SUBQ (08:50)
[2023-10-12] MEDS: SENNOSIDES/DOCUSATE SODIUM 1 TAB TABLET PO ×2 (08:50→21:39)
--- NOTE | 2023-10-12 10:15 | CM.NOTE ---
Rounds made with Dr. Izaguirre. Admitted this am to Med/Surg. Ms. Mendiola reviews what brought her to the hospital with Dr. Izaguirre. Dr. Izaguirre to get with LINDA Wright for plan of care.
[2023-10-12] MEDS: HYOSCYAMINE SULFATE 0.125 MG TAB.SUBL SL ×2 (11:17→17:05)
[2023-10-12 11:27] LABS: Troponin I High Sensitivity 38.7 pg/mL (4.0-51.3)
--- NOTE | 2023-10-12 13:00 | XR_ITS ---
The [address] [address] Patient Name: CONSTANTINO CARDOSO MRN: [id number] date: 1970 Sex: F Assigned Patient Location: [place] Current Patient Location: [place] Accession/Order Number: [id number] Exam Date: 10/12/2023 13:30 Report Date: 10/12/2023 15:17 At the request of: GUNJAN LOZANO Procedure: XR acute abdomen series EXAMINATION: XR acute abdomen series HISTORY: ileus resolution? COMPARISON: 06/06/2015, 10/12/2023 FINDINGS: LUNGS: No infiltrate, pneumothorax, or pleural effusion. MEDIASTINUM: No abnormal widening. BOWEL GAS PATTERN: Dilated small bowel loops in the central abdomen measuring up to 3.8 cm. Air is seen extending down to the sigmoid colon and rectum FREE AIR: None. CALCIFICATIONS: None significant. BONES: No fracture or visible bone lesion. OTHER: Negative. XR/XR acute abdomen series IMPRESSION: Clear lungs Mild distention of central small bowel loops with distal bowel gas. Ileus is favored Electronically authenticated by: CASSANDRA PUENTE Date: 10/12/2023 15:17
[2023-10-12 13:58] VITALS: BP 133/77; PULSE 58; RESP 20; TEMP 36.6; O2SAT 96
--- NOTE | 2023-10-12 15:13 | P.HP_ITS ---
<Statement entered by Leo Izaguirre MD - 10/12/23 20:03> This documentation has been reviewed and approved. Patient seen and evaluated this morning. Patient for pretty significant tenderness throughout her abdomen. Agree with assessment and plan from nurse practitioner. No additional findings to add to what is already been documented. She had mild elevation in alkaline phosphatase we will follow-up with repeat labs in AM. Uncontrolled blood pressure anemia but has been improved currently H&P: HPI History of Present Illness Chief complaint: ABD PAIN Narrative: 10/12/23 1045 This is a 53-year-old female patient with a past medical history significant for somewhat chronic abdominal pain, migraine headaches, and GERD; who presented to the ED early this morning complaining of right lower quadrant abdominal pain, nausea, vomiting, and diarrhea. 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 Workup in the ED revealed dehydration and risk for renal injury on labs. She was also noted to be hypoglycemic in the ED and was treated with apple juice. A CT of the abdomen revealed mild colonic ileus and constipation but no evidence of acute infectious or obstructive process. She was admitted in observation to the hospitalist service for further IV fluids, pain management, and workup if indicated. A stool sample was obtained in the ED and sent for cultures. At the time of my exam the patient is resting comfortably in bed on the medical surgical floor. She describes onset of her symptoms yesterday evening on the far lateral right lower quadrant. She describes the pain as sharp and also like a baby kicking . Later she developed nausea, vomiting, and diarrhea, but some firm stool was also noted to be mixed with liquid. Patient is to be given IV fluids for hydration. Will avoid narcotic pain medications due to her constipation and ileus. We will also attempt to avoid NSAIDs due to her risk for kidney injury. Will attempt to manage her pain with Tylenol for now but will consider Toradol if her pain is unmanageable after she has received some IV fluids. We have initiated scheduled stool softeners and encouraged the patient to ambulate as frequently as possible to help resolve her ileus and constipation. She was given anti-emetics in the ED and has had no further vomiting since the ED. Review of Systems ROS Status of ROS 10 or more systems reviewed and unremark able except as noted in history and below [facility] Medical History (Updated 10/12/23 @ 15:32 by Adriana Robertson NP) GERD (gastroesophageal reflux disease) ?K21.9 - Gastro-esophageal reflux disease without esophagitis (ICD-10) Elevated troponin ?R77.8 - Other specified abnormalities of plasma proteins (ICD-10) Chronic upper abdominal pain ?R10.10 - Upper abdominal pain, unspecified (ICD-10) ?G89.29 - Other chronic pain (ICD-10) Epigastric abdominal pain ?R10.13 - Epigastric pain (ICD-10) Abdominal pain, chronic, generalized ?R10.84 - Generalized abdominal pain (ICD-10) ?G89.29 - Other chronic pain (ICD-10) Headache, migraine ?G43.909 - Migraine, unspecified, not intractable, without status migrainosus (ICD-10) Gastroparesis ?K31.84 - Gastroparesis (ICD-10) Mitral valve disorder ?I05.9 - Rheumatic mitral valve disease, unspecified (ICD-10) Surgical History (Updated 10/12/23 @ 07:54 by Judy Gutierrez) 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 ?K95.89 - Other complications of other bariatric procedure (ICD-10) ?K22.4 - Dyskinesia of esophagus (ICD-10) History of hernia surgery ?Z98.890 - Other specified postprocedural states (ICD-10) ?Z87.19 - Personal history of other diseases of the digestive system (ICD-10) FH: cholecystectomy ?Z83.79 - Family history of other diseases of the digestive system (ICD-10) H/O: hysterectomy ?Z90.710 - Acquired absence of both cervix and uterus (ICD-10) Family History (Updated 10/12/23 @ 07:55 by Judy Gutierrez) Father Family history of myocardial infarction Family history of cancer Grandmother Family history of diabetes mellitus Family history of stroke Sister Family history of hypertension Social History (Updated 10/12/23 @ 07:57 by Judy Gutierrez) Within the past year, how often did you have a drink containing alcohol: never Score interpretation: A score less than 3 is consistent with normal alcohol consumption. 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 Highest level of school completed/degree received: high school graduate Are you now , , , , never or living with a partner: Little interest or pleasure in doing things: not at all Feeling down, depressed, or hopeless: not at all Feel stressed/tense/nervous/anxious/difficulty sleeping: not at all Do you think of yourself as: straight/heterosexual Meds Home Medications and Allergies Home Medications Medication Instructions Recorded Confirmed Type rimegepant 75 mg disintegrating 75 mg PO DAILY PRN migraine 02/26/23 10/12/23 History tablet (Nurtec ODT) headache dicyclomine 20 mg tablet 20 mg PO TID PRN abdominal pain #7 06/06/23 10/12/23 Rx tabs pantoprazole 40 mg tablet,delayed 40 mg PO BID 10/12/23 10/12/23 History release Allergies Allergy/AdvReac Type Severity Reaction Status Date / Time cyclobenzaprine Allergy Severe Anaphylaxis Verified 08/20/23 00:17 [From Flexeril] Penicillins Allergy Intermediate Hives Verified 08/20/23 00:17 Exam Constitutional Vital Signs, click to edit/add: Last Vital Signs Temp 97.8 F 10/12/23 13:58 Pulse 58 L 10/12/23 13:58 Resp 20 10/12/23 13:58 BP 133/77 10/12/23 13:58 Pulse Ox 96 10/12/23 13:58 O2 Del Method Room Air 10/12/23 13:58 Common normals: no apparent distress, oriented x3, alert and well nourished General appearance: cooperative Orientation/consciousness: Yes awake [facility] Common normals: normocephalic, head/scalp atraumatic, hearing grossly normal bilaterally, external nose normal and moist oral mucous membranes Eye Common normals: PERRL, EOMs intact bilaterally, conjunctivae normal and no scleral icterus Alignment: alignment normal Eyelid: eyelids normal Neck & C-Spine Common normals: full ROM, supple and no JVD Chest Common normals: inspection of chest normal Chest: symmetrical chest wall rise Respiratory Common normals: normal respiratory effort, no retractions, no use of accessory muscles and clear to auscultation bilaterally Effort & inspection: able to speak in complete sentences Cardio Common normals: no JVD, regular rate, regular rhythm, S1 normal heart sound, S2 normal heart sound, no gallops, no clicks, no rub and peripheral pulses 2+ throughout GI Common normals: soft to palpation, no hepatosplenomegaly, no masses and no bruits Bladder/kidney exam: bladder normal to palpation Bimanual exam- vagina & uterus: bladder normal to palpation Back & Pelvis Common normals: thoracic and lumbar spine normal to inspection Extremity Common normals: normal capillary refill and no pedal edema General: normal exam except as noted; no clubbing and no cyanosis Neuro Elmer Coma Scale: GCS not evaluated Common normals: CN's II-XII intact bilaterally, moves all extremities, no focal motor deficits and no sensory deficits noted Speech: speech normal Motor exam: strength 5/5 throughout Psych Common normals: mental status grossly normal, thought process normal, affect normal and activity/motor behavior normal Results Labs Labs: Short CBC 10/12/23 Range/Units 03:18 WBC 8.0 (4.0-11.0) 10^3/uL Hgb 12.1 (12.0-16.0) g/dL Hct 38.8 (36.0-48.0) % Plt Count 382 (150-450) 10^3/uL BMP 10/12/23 03:18 Sodium 142 Potassium 3.6 Chloride 109 H Carbon Dioxide 25.0 BUN 29.0 H Creatinine 1.16 H Glucose 63 L Calcium 9.0 Liver Function 10/12/23 Range/Units 03:18 Total Bilirubin 0.2 (0.2-1.0) mg/dL AST 6 L (15-37) U/L ALT 17 (14-59) U/L Alkaline Phosphatase 140 H (46-116) U/L Albumin 3.8 (3.4-5.0) g/dL Urine 10/12/23 Range/Units 03:19 Urine Color Lt. yellow (YELLOW) Urine Clarity Clear (CLEAR) Urine pH 5.5 (5.0-9.0) Ur Specific Emmet 1.025 (1.005-1.025) Urine Protein Negative (NEG/TRACE) mg/dL Urine Glucose (UA) Negative (NEGATIVE) mg/dL Pulse Oximetry Attestation: I have reviewed the pertinent pulse oximetry results. Imaging CT scan - abdomen: Attestation: I have reviewed the pertinent imaging results. Radiologist's impression: IMPRESSION: 1. Mild colonic ileus pattern and constipation suspected. No additional acute abnormality or significant interval change. 2. Prior cholecystectomy, appendectomy, hysterectomy. Assessment and Plan Assessment and Plan (1) Ileus: Assessment and Plan: ACUTE * Adm obs * Ileus w/ associated N/V/D and abdominal pain. * Confirmed w/ CT abd. * No SBO or infection on imaging * Scheduled stool softeners * Clear liquid diet * Tylenol for pain at this time * Avoid narcotic pain medications d/t constipating SE * Avoid further bentyl doses d/t constipating SE * Avoid NSAIDS d/t renal toxicity if possible * Levsin PRN for bowel colic * Pt is encouraged to walk frequently * Repeat Acute abdomen XR series this afternoon to assess for Ileus resolution. Also in AM if persists. * CBC in AM (2) Dehydration: Assessment and Plan: ACUTE * W/ mildly altered renal function - risk for KELLI * LR at 125/hr * Avoid renal toxic medications if possible * CMP in AM (3) GERD (gastroesophageal reflux disease): Assessment and Plan: CHRONIC * Continue home PPI
[2023-10-12] MEDS: POLYETHYLENE GLYCOL 3350 17 GM POWDER PACKET PO (15:53)
[2023-10-12 16:15] LABS: C. Difficile PCR NEGATIVE (NEGATIVE)
[2023-10-12 16:15] LABS: Troponin I High Sensitivity 39.2 pg/mL (4.0-51.3)
[2023-10-12 21:29] VITALS: BP 128/79; PULSE 45; RESP 18; TEMP 36.6; O2SAT 92
[2023-10-12] MEDS: OMEPRAZOLE 40 MG CAPSULE.DR PO (21:38)
--- NOTE | 2023-10-13 01:07 | PC.NURSE ---
025- pt called out saying she had a bloody nose. Small amount of blood noted coming from the right nostril when tissue was removed from nose. pt states that this has been happening frequently for the past two months.
[2023-10-13] MEDS: ACETAMINOPHEN 500 MG TABLET 1000 MG PO (03:33)
[2023-10-13] MEDS: LACTATED RINGER'S SOLUTION 1,000 ML 125 ML IV (04:37)
[2023-10-13 04:42] VITALS: BP 135/83; PULSE 47; RESP 16; TEMP 36.7; O2SAT 96
--- NOTE | 2023-10-13 06:00 | XR_ITS ---
The [address] [address] Patient Name: CONSTANTINO CARDOSO MRN: [id number] date: 1970 Sex: F Assigned Patient Location: [place] Current Patient Location: [place] Accession/Order Number: [id number] Exam Date: 10/13/2023 05:58 Report Date: 10/13/2023 07:09 At the request of: GUNJAN LOZANO Procedure: XR acute abdomen series EXAMINATION: XR acute abdomen series HISTORY: Ileus COMPARISON: 10/12/2023 FINDINGS: LUNGS: Linear opacity in the right midlung, atelectasis favored. The left lung is clear MEDIASTINUM: No abnormal widening. BOWEL GAS PATTERN: Dilated small bowel loops measuring up to 4 cm. Air is seen extending down to the sigmoid colon. FREE AIR: None. CALCIFICATIONS: None significant. BONES: No fracture or visible bone lesion. OTHER: Negative. XR/XR acute abdomen series IMPRESSION: Mild small bowel dilatation suggesting ileus, stable Electronically authenticated by: CASSANDRA PUENTE Date: 10/13/2023 07:09
[2023-10-13 06:10] LABS: Basophils Percent Auto 0.4 % (0.2-2.0); Eosinophils Absolute Auto 0.1 10^3/uL (0.0-0.7); Eosinophils Percent Auto 2.6 % (0.9-7.0); Hematocrit 35.1 % (36.0-48.0); Hemoglobin 10.9 g/dL (12.0-16.0); Immature Granulocytes Abs Auto 0.01 10^3/uL (0.00-0.03); Immature Granulocytes Pct Auto 0.2 % (0.0-0.5); Lymphocytes Absolute Auto 1.8 10^3/uL (1.2-3.8); Lymphocytes Percent Auto 35.8 % (20.5-60.0); Mean Corpuscular HGB Conc 31.1 g/dL (29.9-35.2); Mean Corpuscular Hemoglobin 28.7 pg (26.7-34.0); Mean Corpuscular Volume 92.4 fL (81.0-99.0); Mean Platelet Volume 9.5 fL (9.5-13.5); Monocytes Absolute Auto 0.3 10^3/uL (0.3-0.8); Monocytes Percent Auto 6.3 % (1.7-12.0); Neutrophils Absolute Auto 2.7 10^3/uL (1.4-6.5); Neutrophils Percent Auto 54.7 % (43.0-75.0); Platelet Count 333 10^3/uL (150-450)
[2023-10-13 06:32] LABS: Alanine Aminotransferase 21 U/L (14-59); Albumin Globulin Ratio 0.9; Alkaline Phosphatase 113 U/L (46-116); Anion Gap 11.2; Aspartate Amino Transferase 15 U/L (15-37); BUN Creatinine Ratio 12.2; Bilirubin Total 0.6 mg/dL (0.2-1.0); Calcium 9.1 mg/dL (8.5-10.1); Carbon Dioxide 26.6 mmol/L (21.0-32.0); Chloride 108 mmol/L (98-107); Estimated GFR (African America >60 (>=60); Estimated GFR (Non-African Ame >60 (>=60); Globulin 3.3 g/dL; Glucose 115 mg/dL (74-106); Potassium 3.8 mmol/L (3.5-5.1); Sodium 142 mmol/L (136-145); Total Protein 6.3 g/dL (6.4-8.2)
[2023-10-13] MEDS: POLYETHYLENE GLYCOL 3350 17 GM POWDER PACKET PO (08:38)
[2023-10-13] MEDS: SENNOSIDES/DOCUSATE SODIUM 1 TAB TABLET PO (08:38)
[2023-10-13] MEDS: OMEPRAZOLE 40 MG CAPSULE.DR PO (08:38)
[2023-10-13] MEDS: ENOXAPARIN SODIUM 40 MG/0.4 ML SYRINGE SUBQ (08:38)
--- NOTE | 2023-10-13 09:48 | CM.NOTE ---
Rounds made with Dr. Izaguirre. Ms. Mendiola states feels much better today. Plan is to advance diet and hopefully home later today. Maury in agreement.
--- NOTE | 2023-10-13 11:06 | P.DS_ITS ---
<Statement entered by Leo Izaguirre MD - 10/13/23 19:34> This documentation has been reviewed and approved. Patient seen and examined this morning. She has had recurrent episodes of this. She feels back to her baseline. Agree with input and diagnoses provided by nurse practitioner. No change in clinical exam. Patient did have mild hypoglycemia on admission that is improved and back to baseline. Acute kidney injury also returned to baseline DS: Providers Provider Date of admission: 10/12/23 07:35 Primary care physician: JUDI YOUSSEF Discharging clinician: Adriana Robertson DS: Diagnosis Discharge Diagnosis (1) Ileus: (2) Dehydration: (3) GERD (gastroesophageal reflux disease): DS: Summary Hospital Course Hospital Course: The patient was admitted with colonic ileus and constipation with associated N/V/D and abdominal pain. She was treated with IV fluids and scheduled stool softeners. Pain was treated with Tylenol and narcotics were avoided due to impaired bowel motility. Her diet was initially maintained to clear liquids and then advanced which she tolerated well. Her abdominal pain, nausea and vomiting, resolved and she was passing flatus and stool. C-diff, Giardia, and Cryptosporidium studies were negative. Her stool was sent for culture and a GI panel which were still pending at the time of discharge, but we have low clinical suspicion of infectious or inflammatory etiology of her symptoms. As the patient was back to her baseline she was discharged home in stable condition. She should follow-up with her PCP within 1 week. She was advised to hold her home Bentyl until her BMs are completely normal. She should continue to take OTC stool softeners as needed, avoid harsh laxatives, and drink plenty of fluid. Time Spent with Patient Time attestation: Total time spent providing and/or coordinating discharge services: Time spent: greater than 30 minutes Specific discharge activities: Physical exam, discussion of discharge plan, questions answered. Exam Constitutional Vital Signs, click to edit/add: Last Vital Signs Temp 98.0 F 10/13/23 04:42 Pulse 47 L 10/13/23 04:42 Resp 16 10/13/23 04:42 BP 135/83 10/13/23 04:42 Pulse Ox 96 10/13/23 04:42 O2 Del Method Room Air 10/13/23 04:42 Common normals: no apparent distress, oriented x3 and alert General appearance: cooperative Orientation/consciousness: Yes awake [facility] Common normals: normocephalic and head/scalp atraumatic Eye Common normals: PERRL, EOMs intact bilaterally, conjunctivae normal and no scleral icterus Respiratory Common normals: normal respiratory effort, no use of accessory muscles and clear to auscultation bilaterally Effort & inspection: able to speak in complete sentences and symmetric chest movement Cardio Common normals: no JVD, regular rate, regular rhythm, S1 normal heart sound, S2 normal heart sound, no murmurs and peripheral pulses 2+ throughout GI Common normals: Normal to inspection, nondistended, normoactive bowel sounds present and soft to palpation Palpation: tender (Mild epigastric, chronic) Bladder/kidney exam: bladder normal to palpation Extremity Common normals: normal to inspection, full ROM, normal capillary refill and no pedal edema General: no clubbing and no cyanosis Neuro Common normals: moves all extremities, no focal motor deficits and no sensory deficits noted Speech: speech normal Psych Common normals: mental status grossly normal and activity/motor behavior normal DS: Data Data Completed and Pending Labs on day of discharge: Labs from last 24 hours 10/13/23 10/12/23 10/12/23 04:44 15:39 03:26 WBC 5.0 RBC 3.80 L Hgb 10.9 L Hct 35.1 L MCV 92.4 MCH 28.7 MCHC 31.1 RDW 13.0 Plt Count 333 MPV 9.5 Neut % (Auto) 54.7 Lymph % (Auto) 35.8 Baxter % (Auto) 6.3 Eos % (Auto) 2.6 Baso % (Auto) 0.4 Neut # (Auto) 2.7 Lymph # (Auto) 1.8 Baxter # (Auto) 0.3 Eos # (Auto) 0.1 Baso # (Auto) 0.0 Abs Immat Gran (auto) 0.01 Imm/Tot Granulo (auto) 0.2 Sodium 142 Potassium 3.8 Chloride 108 H Carbon Dioxide 26.6 Anion Gap 11.2 BUN 9.0 Creatinine 0.74 Est GFR ( Amer) >60 Est GFR (Non-Af Amer) >60 BUN/Creatinine Ratio 12.2 Glucose 115 H Calcium 9.1 Total Bilirubin 0.6 AST 15 ALT 21 Alkaline Phosphatase 113 Troponin I High Sens 39.2 NT-Pro-B Natriuret Pep Total Protein 6.3 L Albumin 3.0 L Globulin 3.3 Albumin/Globulin Ratio 0.9 C. difficile Toxin PCR Negative 10/12/23 03:18 WBC RBC Hgb Hct MCV MCH MCHC RDW Plt Count MPV Neut % (Auto) Lymph % (Auto) Baxter % (Auto) Eos % (Auto) Baso % (Auto) Neut # (Auto) Lymph # (Auto) Baxter # (Auto) Eos # (Auto) Baso # (Auto) Abs Immat Gran (auto) Imm/Tot Granulo (auto) Sodium Potassium Chloride Carbon Dioxide Anion Gap BUN Creatinine Est GFR ( Amer) Est GFR (Non-Af Amer) BUN/Creatinine Ratio Glucose Calcium Total Bilirubin AST ALT Alkaline Phosphatase Troponin I High Sens 38.7 NT-Pro-B Natriuret Pep 73.0 Total Protein Albumin Globulin Albumin/Globulin Ratio C. difficile Toxin PCR Imaging CT scan - abdomen: Radiologist's impression: The patient was admitted with colonic ileus and constipation with associated N/V/D and abdominal pain. She was treated with IV fluids and scheduled stool softeners. Pain was treated with Tylenol and narcotics were avoided due to impaired bowel motility. Her diet was initially maintained to clear liquids and then advanced which she tolerated well. Her abdominal pain, nausea and vomiting, resolved and she was passing flatus and stool. As the patient was back to her baseline she was discharged home in stable condition. She should follow-up with her PCP within 1 week. Acute Abdomen Series: Radiologist's impression: 10/12/23 IMPRESSION: Clear lungs Mild distention of central small bowel loops with distal bowel gas. Ileus is favored 10/13/23 IMPRESSION: Mild small bowel dilatation suggesting ileus, stable Discharge Plan Discharge Disposition: Home, Self-Care Discharge Medications: Continued Nurtec ODT 75 mg tablet,disintegrating 75 mg PO DAILY PRN (Reason: migraine headache) pantoprazole 40 mg tablet,delayed release (DR/EC) 40 mg PO BID Held dicyclomine 20 mg tablet 20 mg PO TID PRN (Reason: abdominal pain) Qty: 7 0RF Hold Instructions: Until ileus fully resolves and you have normal BMs Activity: increase activity as tolerated Diet: advance to your usual diet Patient Instructions: Acute Abdominal Pain (DC) Activity Restrictions/Additional Instructions: - Take OTC stool softeners as needed to avoid/resolve constipation - Walk frequently and drink plenty of fluid - OK to return to work on 10/14/23 Forms: Portal Instructions Follow Up Appointments: @ 10:30am with Judi Youssef NP [phone]
[2023-10-13 15:09] LABS: Cryptosporidium EIA Negative (Negative); Giardia lamblia Ag, EIA Negative (Negative)
--- NOTE | 2023-10-17 15:06 | CM.DCFOLLOWU ---
1st attempt discharge follow up call made by Caden Francis on 10/17/23, no answer
== END 2023-10-13 15:22 | disposition home or self-care (01) ==
LOC: ER 06:54 → MS 07:39
PROVIDERS: Admitting Provider Family Medicine; Emergency Provider Internal Medicine; PCP Nurse Practitioner Family; Visit Provider Nurse Practitioner
DX: K56.7 Ileus, unspecified (principal); E86.0 Dehydration; K21.9 Gastro-esophageal reflux disease without esophagitis; E16.2 Hypoglycemia, unspecified; N17.9 Acute kidney failure, unspecified; Z90.710 Acquired absence of both cervix and uterus; Z87.891 Personal history of nicotine dependence; Z79.899 Other long term (current) drug therapy
CPT/HCPCS: 36415; 74022; 74177; 80053; 81001; 83605; 83880; 84484; 85025; 87045; 87046; 87427; 87493; 87507; 96361; 96372; 96374; 96375; 99285; G0378; J0500; J1650; J2270; J2405; J2765; J3010; Q9967

== ENCOUNTER 2023-10-18 13:36 | Outpatient (REF) | payer BC, SELFPAY ==
[2023-10-18 14:11] LABS: Bilirubin Urine NEGATIVE (NEGATIVE); Blood Urine TRACE-I (NEGATIVE); Clarity Urine CLEAR (CLEAR); Color Urine LT. YELLOW (YELLOW); Glucose Urine UA NEGATIVE (NEGATIVE); Ketones Urine NEGATIVE (NEGATIVE); Leukocyte Esterase Urine NEGATIVE (NEGATIVE); Nitrite Urine NEGATIVE (NEGATIVE); Protein Urine NEGATIVE (NEG/TRACE); Urobilinogen Urine 0.2 EU/dL (0.2-1.0)
[2023-10-18 14:43] LABS: Bacteria Urine TRACE #/HPF (NONE SEEN); Cast Seen? NONE SEEN #/LPF (NONE SEEN); Crystals Seen? None Seen #/HPF (None Seen); Mucus Urine NONE SEEN (NONE SEEN); RBC Urine 0-2 #/HPF (0-2); Squamous Epithelial Cell Urine RARE #/LPF (NONE/RARE); WBC Urine 0-2 #/HPF (NONE SEEN)
[2023-10-18 14:44] LABS: Urine Culture Indicated ALREADY ORDERED
== END 2023-10-18 13:37 | disposition home or self-care (01) ==
LOC: LAB 13:36
PROVIDERS: PCP Nurse Practitioner Family; Visit Provider Nurse Practitioner Family
DX: R31.9 Hematuria, unspecified (principal)
CPT/HCPCS: 81001; 87086; 87150; 87186

== ENCOUNTER 2023-11-03 08:42 | Outpatient (OUT) | payer BC, SELFPAY ==
--- NOTE | 2023-11-03 08:58 | XR_ITS ---
The [address] [address] Patient Name: CONSTANTINO CARDOSO MRN: [id number] date: 1970 Sex: F Assigned Patient Location: [facility] Current Patient Location: LAB Accession/Order Number: [id number] Exam Date: 11/03/2023 09:00 Report Date: 11/03/2023 10:32 At the request of: STEPHANIE YOUSSEF Procedure: XR hip LT 2V w/ pelvis PROCEDURE: XR hip LT 2V w/ pelvis COMPARISON: None. HISTORY: Left Hip Pain M25.552 FINDINGS: BONES:No fracture, acute abnormality, or significant arthropathy. SOFT TISSUES:Negative. No visible soft tissue swelling. EFFUSION:None visible. OTHER: Negative. XR/XR hip LT 2V w/ pelvis IMPRESSION: No acute abnormality Electronically authenticated by: CASSANDRA PUENTE Date: 11/03/2023 10:32
== END 2023-11-03 08:43 | disposition home or self-care (01) ==
LOC: RAD 08:44
PROVIDERS: PCP Nurse Practitioner Family; Visit Provider Nurse Practitioner Family
DX: N39.0 Urinary tract infection, site not specified (principal); M25.552 Pain in left hip
CPT/HCPCS: 73502; 87086; 87150; 87186

== ENCOUNTER 2023-11-03 09:13 | Outpatient (OUT) | payer BC, SELFPAY | END 2023-11-03 09:14 | disposition home or self-care (01) | LOC: LAB 09:13 | PROVIDERS: PCP Nurse Practitioner Family; Visit Provider Nurse Practitioner Family | DX: N39.0 Urinary tract infection, site not specified (principal) | CPT/HCPCS: 87086; 87150; 87186 ==

== ENCOUNTER 2023-11-14 10:12 | Outpatient (RCR) | payer BC, SELFPAY | END 2024-01-06 13:10 | disposition home or self-care (01) | LOC: PT 10:12 | PROVIDERS: PCP Nurse Practitioner Family; Visit Provider Nurse Practitioner Family | DX: M25.552 Pain in left hip (principal); R26.89 Other abnormalities of gait and mobility; R26.9 Unspecified abnormalities of gait and mobility; R29.3 Abnormal posture; M54.50 Low back pain, unspecified | CPT/HCPCS: 97010; 97110; 97124; 97140; 97161 ==

== ENCOUNTER 2023-11-21 09:12 | Outpatient (OUT) | payer BC, SELFPAY ==
--- OUTSIDE RECORDS SUMMARY | 2023-11-21 09:37 | XMS_ITS | CCD ---
Author Name Unknown Address [address] [place] [address] Organization [facility] Care Team Providers Care Orthophotography Technician Name Role Phone LEONA MORTENSEN Admitting Unavailable LEONA MORTENSEN Attending Unavailable KEVIN HERRERA Primary Care Unavailable KEVIN HERRERA Referring Unavailable MA Procedure Practitioner Unavailab ORESTES Cruz Surgeon Unavailable JUDI YOUSSEF Primary Care Physician DONI Youssef Primary Care Provider DO Conner Griffith Emergency Provider [phone] Jennie Ayon Unavailable MD Jennie Ayon Attending [...] Unavailable PA, DR NORA Hairston Consulting Unavailable JUDI YOUSSEF Primary Care Unavailable PA, DR NORA Hairston [...] FAB ., BALTAZAR Admitting Unavailable FAB ., BLATAZAR Attending Unavailable FAB ., BALTAZAR Consulting Unavailable MIKAEL, JUDI Primary Care Unavailable CALLY LANTIGUA Consulting Unavailable STEVE ., EUN LARSON Consulting Unavailabl e FAB ., BALTAZRA Admitting Unavailable FAB ., BALTAZAR Attending Unavailable MIKAEL, JUDI Primary Care Unavailable CHUNG WINN Consulting Unavailable PA, DR NORA Hairston Attending Unavailable PA, DR NORA Hairston Consulting Unavailable PA, DR NORA Hairston Admitting Unavailable MIKAEL, JUDI Primary Care Unavailable ORESETS VASQUEZ Consulting Unavailable MIKAEL, JUDI Admitting Unavailable [...] Unavailable ZIEBER, DR RUSH Hairston Consulting Unavailable MIAKEL, JUDI Attending Unavailable MIKAEL, JUDI Primary Care Unavailable MIKAEL, JUDI Consulting Unavailable MIKAEL, JUDI Admitting Unavailable DR CASSANDRA PUENTE V Consulting Unavailable MIKAEL, JUDI Attending Unavailable MIKAEL, JUDI Primary Care Unavailable JUDI YOUSSEF Consulting Unavailable LINDA [facility] Primary Care Provider Gladis DO Prieto M Emergency Provider DO Pete Thakkar Emergency Provider [phone] [facility] Primary Care Provider [phone] Rafa Rangel Unavailable [phone] Renny Gan Unavailable [phone] Mikael, Judi Joan Primary Care Unavailable Gladis, Conner M Admitting Unavailable Gladis, Conner M Attending Unavailable Mikael, [facility] Primary Care Unavailable Asaad, Imad Admitting Unavailable Asaad, Imad Attending Unavailable Renny Gan Consulting Unavailabl e [facility], [facility] Primary Care Unavailable Deann Montalvo Attending Unavailable Alahmad, Alaa Admitting Unavailable Mikael, Judi Joan Primary Care Unavailable Gladis, Conner M Admitting Unavailable Gladis, Conner M Attending Unavailable Mikael, [facility] Primary Care Unavailable Pete Thakkar A Admitting Unavailable Pete Thakkar Attending Unavailable Samuel Estrella Attending Unavailable Monique Marquez Attending Unavailable Anai REAGAN Attending Unavailable Zabrina Patton Attending Unavailable MARQUES BRADLEY Referring Unavailable [facility] Primary Care Unavailable [facility] Primary Care Unavailable KRMARQUES HAGER Referring Unavailable KROHMARQUES Attending Unavailable IMER CHERRY Referring Unavailable [facility], [facility] Primary Care Unavailable [facility], [facility] Primary Care Unavailable KROHMARQUES Referring Unavailable KAITLYN TORRES Attending Unavailable KROHMARQUES Referring Unavailable [facility], [facility] Primary Care Unavailable MELISSA MONTALVO Attending Unavailable KROHMARQUES Referring Unavailable [facility] Primary Care Unavailable SLYSLY Attending Unavailable KROHMARQUES Referring Unavailable [facility], [facility] Primary Care Unavailable BRENNEN SHAW Attending Unavailable Allergies Allergy Classification Reported Allergen(s) Allergy Type Date of Onset Reaction(s) Facility (5 sources) cyclobenzaprine; Translations: [CYCLOBENZAPRINE] Drug Allergy 04-28-20 18 Swelling of Lip/Tongue/Thr oat [facility] Rep[facility] (6 sources) Penicillins Drug allergy (disorder) 09-02-20 15 Rash [facility] Rep[facility] (20 sources) cyclobenzaprine; Translations: [cyclobenzaprine] Drug Allergy 04-28-20 18 Pharyngeal swelling (finding), Swelling [facility] (20 sources) Penicillin; Translations: [penicillin] Drug Allergy 04-28-20 18 Swelling (morphologic abnormality), Swelling [facility] (8 sources) penicillAMINE Drug Allergy rash [facility] Other (2 sources) cyclobenzaprine Drug Allergy 03-23-[address] [facility] Repository (1 source) traMADol Drug Allergy [facility] Repository (1 source) traMADol Drug Allergy [facility] Repository (1 source) cyclobenzaprine Drug Allergy 03-23-20 23 [facility] Repository (1 source) Penicillins Drug allergy (disorder) 03-23-20 23 [facility] Repository Medications Current Medications Medication Drug [...] day(s), # 120 cap(s), Refills(s) 11, Pharmacy: [facility]/pharmacy #[id number], 170, cm, 05/05/21 14:15:00 EDT, Height/Length Dosing, 83.1, kg, 05/05/21 14:15:00 EDT, Weight Dosing Start Date: 05/05/21 Stop Date: 04/30/22 Status: Ordered Start: 09-20-2020 take 2 capsules by m outh four times daily Bentyl 10 mg Cap 20 mg = 2 cap(s), Oral, QID, # 20 cap(s), Refills(s) 0, Pharmacy: [facility]/pharmacy #[id number], 170, cm, 09/20/20 16:03:00 EST, Height/Length [...] day(s), # 90 tab(s), Refills(s) 0, Pharmacy: [facility]/pharmacy #[id number], 170, cm, 01/28/22 13:40:00 EDT, Height/Length [...] pain, # 20 tab(s), Refills(s) 0, Pharmacy: [facility]/pharmacy #[id number], 170, cm, 02/19/23 0:56:00 EDT, Height/Length [...] day(s), # 90 cap(s), Refills(s) 1, Pharmacy: [facility]/pharmacy #[id number], 170, cm, 04/14/22 14:53:00 EDT, Height/Length [...] Daily, # 90 cap(s), Refills(s) 3, Pharmacy: [facility]/pharmacy #[id number], 170, cm, 01/11/22 9:17:00 EDT, Height/Length Dosing, 83, kg, 01/11/22 9:17:00 EDT, Weight Dosing Start Date: 01/11/22 Status: Ordered omeprazole 40 mg Cap-DR (1 source) Start: 2 End: 2 take 1 capsule by mouth once daily omeprazole 40 mg Cap-DR 40 mg = 1 cap(s), Oral, Daily, X 90 day(s), # 90 cap(s), Refills(s) 0, Pharmacy: [facility]/pharmacy #[id number], 170, cm, 01/28/22 13:40:00 EDT, Height/Length [...] by mouth twice daily. polyethylene glycol 3350 20242 mg powder for oral solution (1 source) [...] Nausea/Vomiting, # 12 tab(s), Refills(s) 0, Pharmacy: [facility]/pharmacy #[id number], 170, cm, 09/20/20 16:03:00 EST, Height/Length Dosing, 87.5, kg, 09/20/20 16:03:00 EST, Weight Dosing Start Date: 09/20/20 Status: Ordered Completed/Discontinued Medications Medication Drug Class(es) Dates Sig (Normalized) Sig (Original) acetaminophen 325 mg / HYDROcodone bitartrate 5 mg oral tablet (6 sources) Opioid Agonist Start: 06-21-2019 End: 02-15-2023 take 1 tablet by mouth every six hours Hydrocodone-Acetami nophen ([place]) 5-325 mg Tablet Discontinued 1 TAB PO Q6H June 21, 2019 12:00am February 15, 2023 9:46am Start: 11-12-2018 End: 01-30-2019 take 1 tablet by mouth every four to six hours Hydrocodone-Acetaminophen ([place]) 5-325 mg tablet Discontinued 1 TAB PO [...] QID, # 120 tab(s), Refills(s) 0, Pharmacy: [facility]/pharmacy #[id number], 170, cm, 07/22/22 14:33:00 EST, Height/Length [...] 05-10-2019 Chronic Other aftercare (1 source) Other chcf (current) drug therapy; Translations: [OTH ASSISTED CURRENT DRUG THERAPY] Onset: 11-30-2022 Episodic Other [...] EVALon 023 ANES POSTPROC EVAL HNO ID: [id number] Author: Carlota Jeffrey MD Service: ? Author Type: Anesthesiologist Type: Anesthesia Postprocedure Evaluation Filed: 08/25/2023 5:35 PM Note Text: POST ANESTHESIA EVALUATION NOTE : 1970 Procedure Summary Date: 08/25/23 Room / Location: Gastroenterology Anesthesia Start: 1444 Anesthesia Stop: 155 Procedure: EGD - THERAPEUTIC, EUS, OR TUBE INTERVENTIONS Diagnosis: Gastroparesis (OTHER) Scheduled Providers: Marques Bradley MD; Carlota Jeffrey MD; Vanessa Mcmillan APRN.PIT MANAGER Responsible Provider: Carlota Jeffrey MD Anesthesia Type: [...] August 25, 2023 TIME: 5:35 PM CSN: [id number] [facility] ANES PRE-OPon 08-25-2023 ANES PRE-OP HNO ID: [id number] Author: Carlota Jeffrey MD Service: ? Author [...] and consent discussed: yes. Patient / Responsible Alliance Party agrees to proceed: yes Patient / [...] August 25, 2023 TIME: 11:46 AM CSN: [id number] Normal [facility] HISTORY PHYSICALon HISTORY PHYSICAL HNO ID: [id number] Author: Gavi Bourgeois MD Service: General Surgery [...] DATE: August 25, 2023 TIME: 6:57 AM [facility] NURSING PROGon 08-25-2023 NURSING PROG HNO ID: [id number] Author: Melody Walter RN Service: Nursing Author [...] None Electronically Signed By: Melody Walter RN [facility] NURSING PROG HNO ID: [id number] Author: Pamela Osuna RN Service: ? Author [...] By: Pamela Navarro RN In Department: GASTROENTEROLOGY [facility] Magda 07-22-2023 SHEILA Telephone (Timehop) CONSTANTINO CARDOSO ([id number]) 1970 F Date Time Provider Department 07/22/23 [...] Status:Closed by EVELYN BLACK on 07/22/23 Normal [facility] ANES POSTPROC EVALon 023 ANES POSTPROC EVAL HNO ID: [id number] Author: Sly Carter MD Service: ? Author [...] Scheduled Providers: Marques Bradley MD; Amanda Bernard APRN.PIT MANAGER; Sly Carter MD Responsible Provider: Sly Carter [...] July 14, 2023 TIME: 12:26 PM CSN: [id number] [facility] ANES PRE-OPon 07-14-2023 ANES PRE-OP HNO ID: [id number] Author: Sly Carter MD Service: ? Author Type: Anesthesiologist Type: Anesthesia Preprocedure Evaluation Filed: 07/14/2023 9:19 AM Note Text: ANESTHESIOLOGY DAY OF SURGERY NOTE : 1970 Procedure Information Date/Time: 07/14/23929 Scheduled providers: Marques Bradley MD; Amanda Bernard APRN.PIT MANAGER; Sly Carter MD Procedure: EGD - THERAPEUTIC, [...] and consent discussed: yes. Patient / Responsible Alliance Party agrees to proceed: yes Patient / [...] July 14, 2023 TIME: 9:11 AM CSN: [id number] [facility] EGD - THERAPEUTIC, EUS, OR T UBE INTERVENTIONSon 07-14-2023 [facility] HISTORY PHYSICALon HISTORY PHYSICAL HNO ID: [id number] Author: Raúl Quintero MD Service: General Surgery [...] medications for this visit. 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 Mehrdad Carter paged : Patient Constantino Cardoso in post bed 10: Complaining of 10/10 abdominal pain (gas), mild nausea. Any further orders? Thanks! Mari Spaulding RN BSN [facility] NURSING PROG HNO ID: [id number] Author: Mónica Spaulding RN Service: Nursing Author [...] Signed By: Mónica Spaulding RN BSN [facility] NURSING PROG HNO ID: [id number] Author: Candace Jaramillo RN Service: ? Author [...] Candace Jaramillo RN In Department: GASTROENTEROLOGY [facility] SURGICAL PATHOLOGYon 023 ADDENDUM 1: Normal [facility] Comment on above: Order Comment: Speci men Type: TISSUE SPECIMENOrdering Facility: [facility] Address: [address] [place] [address] Result Comment: Give n the background of chronic gastritis a Helicobacter pylori immunostain was performed on block A and is negative for Helicobacter pylori organisms. AEB 07/20/2023 Laboratory Developed Test (LDT) Disclaimer: Performance characteristics of immunohistochemical, immunofluorescent and chromogenic in-situ hybridization tests have been determined by the performing laboratory within [facility]???s [facility] [place] ([facility], [facility], [facility], [facility], [facility], [facility], or [facility]) in a manner consistent with CLIA requirements. [...] at 9:30 AM Performed By: #### S ####[facility] [id number] [place] [address] [place] CASE REPORT Normal [facility] Comment on above: Order Comment: Speci men Type: TISSUE SPECIMENOrdering Facility: [facility] Address: [address] [place] [address] Result Comment: [facility] Pathology Report Case: [id number] Authorizing Provider: Marques Bradley MD Collected: 07/14/2023 10:42 AM Ordering Location: Gastroenterology Received: 07/14/2023 07:34 PM Pathologist: Marilou Zacarias MD Specimen: STOMACH BIOPSY, R/O H.Pylori Performed By: #### S ####[facility] [id number] [address] [place] DIAGNOSIS COMMENT Immunohistochemical stain for Helicobacter pylori is pending and will be reported as an addendum. [facility] Comment on above: Order Comment: Speci men Type: TISSUE SPECIMENOrdering Facility: [facility] Address: [address] [place] [address] Performed By: #### S ####[facility] [id number] [address] [place] FINAL DIAGNOSIS Normal [facility] Comment on above: Order Comment: Speci men Type: TISSUE SPECIMENOrdering Facility: [facility] Address: [address] [place] [address] Result Comment: Velma scott, biopsy: - Chronic inactive gastritis. See comment. AEB/dkclementina 07/18/2023 Performed By: #### S ####[facility] [id number] [address] [place] FINAL PERFORMING LAB Normal [facility] Comment on above: Order Comment: Speci men Type: TISSUE SPECIMENOrdering Facility: [facility] Address: [address] [place] [address] Result Comment: Diag nostic interpretation performed at [facility], [facility] [place] [address] CLIA# [id number] [employer] Senior Sergeant: Maurisio Ritchie M.D. Performed By: #### S ####[facility] [id number] [place] [address] [place] GROSS DESCRIPTION Normal [facility] Comment on above: Order Comment: Speci men Type: TISSUE SPECIMENOrdering Facility: [facility] Address: [address] [place] [address] Result Comment: A. S TOMACH BIOPSY Received in formalin are two pieces of hager, soft tissue aggregating to 0.5 x 0.2 x 0.2 cm. Totally submitted in one cassette. Two Gross examination performed at [facility], [address] [place] [address] July 14, 2023 11:10 PM Performed By: #### S ####[facility] [id number] [address] [place] Lipase Levelon 06-06-2023 Lipase [Catalytic activity/Vol] 33 U/L Normal 13-58 [facility] Comment on above: Performed By: #### 2 [id number] ####[facility] [id number] [place] [address] [facility] 05-27-2023 CNPN Telephone (GENBMI) CONSTANTINO CARDOSO ([id number]) 1970 F Date Time Provider Department 05/27/23 [...] Status:Closed by EVELYN BLACK on 05/27/23 Normal [place] GASTRIC EMPTYING SOLIDon 05-26-2023 NM GASTRIC EMPTYING SOLID * * *Final Report* * * DATE OF EXAM: May 26 2023 11:11AM N 0017 - MS GASTRIC EMPTYING SOLID / PROCEDURE REASON: Nausea [...] RATE OF GASTRIC EMPTYING OF SOLID MEAL. Under Water Assistant: PSCB Transcribe Date/Time: May 26 2023 11:18A Dictated by : SILVANO WELSH MD This examination was interpreted and the report reviewed and electronically signed by: SILVANO WELSH MD on May 26 2023 11:18AM EST [id number] [facility] CNNURSEon 05-25-2023 CNNURSE Nurse Visit (GASTMN) CONSTANTINO CARDOSO ([id number]) 1970 F Date Time Provider Department 05/25/23 8:30 AM NURSE GI LAB 2 GASTMN During your visit today, we recorded the following information about you: Pedro Gonzalez LPN 05/25/2023 4:15 PM Signed Name: Constantino Cardoso CC#: [id number] Date: 05/25/2023 ESOPHAGEAL MANOMETRY TEST Indication: Nausea [...] .Pedro Gonzalez LPN Referring Provider: MARQUES BRADLEY [[id number]] Allergies As of Date: 05/25/2023 Noted Allergy Reaction FLEXERIL (CYCLOBENZAPRINE) 04/28/2018 7 - Swelling PENICILLIN 04/28/2018 7 - Swelling Date Reviewed: 05/06/2023 Reviewed by: Judy Michaels MA - Fully Assessed Reason for Visit: Procedure [88] Cmt: Manometry Esophageal Visit Diagnosis:Nausea [R11.0] Order(s):MANOMETRY ESOPHAGEAL [08862ZXO] Order #: [id number] Prescriptions as of 05/25/2023 - dicyclomine (BENTYL) [...] Encounter Status:Closed [facility] PED[facility] CONSTANT[facility] ([id number]) 1970 F Date Time Provider Department 05/16/23 [...] Encounter Status:Closed by EVELYN BLACK on 05/16/23 [facility] Yuko 05-06-2023 CNOV Office Visit (GENBMI ) CONSTANTINO CARDOSO ([id number]) 1970 F Date Time Provider Department 05/06/23 [...] for internal providers or letter via the [employer] for external providers. Chief Complaint: [...] Time: 8:15 AM Referring Provider: IMER CHERRY [[id number]] Allergies As of Date: 05/06/2023 Noted Allergy Reaction (more content not included)... [facility] CNPNon 05-02-2023 CNPN Telephone (GENBMI) CONSTANTINO CARDOSO ([id number]) 1970 F Date Time Provider Department 05/02/23 EVELYN BLACK GENBMI During your visit today, we recorded the following information about you: Evelyn Black, RN 05/04/2023 1:55 PM Addendum BMI SPECIALTY CARE COORDINATION TELEPHONE ENCOUNTER Chief complaint AND duration dysphagia. Type of procedure: hernia repair hiatal with Dr. MORTENSEN in [place] February of 2019. Sending OP notes Nursing assessment (subjective/objective) . pain in chest area and getting worse, hard to breathe c/o nausea and oral intolerance, using miralax for BM Went to [facility] March 2023 who told her she needed a stent in her heart..but her c/o were difficulty swallowing and sent pt home and referred her to [facility] and was admitted for almost a week [...] HHR a year later @ OSH in [place] Recommendation: appt after records obtained, encouraged small [...] Encounter Status:Closed by EVELYN BLACK on 05/02/23 [facility] 04-26-2023 CNPN Telephone (GENBMI) CONSTANTINO CARDOSO ([id number]) 1970 F Date Time Provider Department 04/26/23 [...] Encounter Status:Closed by EVELYN BLACK on 04/26/23 [facility] 04-18-2023 CNPN Telephone (GENBMI) CONSTANTINO CARDOSO ([id number]) 1970 F Date Time Provider Department 04/18/23 EVELYN BLACK GENI During your visit today, we recorded the following information about you: Evelyn Black, RN 04/18/2023 2:17 PM Signed BMI SPECIALTY CARE COORDINATION TELEPHONE ENCOUNTER Contacted pt regarding a referral from Dr Martinez's office. [facility] and call back number. 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 Visit: [employer] Principal - Other [3602] Prescriptions as of 04/18/2023 [...] Encounter Status:Closed by EVELYN BLACK on 04/18/23 [facility] Magda 04-07-2023 CNPN Telephone (GASTSP) CONSTANTINO CARDOSO ([id number]) 1970 F Date Time Provider Department 04/07/23 GUILLERMO MARTINEZ [facility] During your visit today, we recorded [...] Encounter Status:Closed by YANCY LOPEZ on 04/07/23 [facility] NM gastric emptying study 03-31-2023 NM gastric emptying study [address] [place] [address] Nuclear Medicine Report Signed Patient: Constantino Cardoso MR#: [id number] : 1970 Acct:[id number] Age/Sex: 52 / F ADM Date: 03/26/23 Loc: Room: [address] [place] [address] Type: ADM IN Attending Dr: Deann Montalvo [...] Samuel Stone M.D.03/31/2023 10:03 AM Dictation Location: [place] [address] Transcribed By: [facility] 03/31/23 1003 Dictated By: Samuel Stone DO 03/31/23 0956 Signed By: 03/31/23 1003 [facility] Comprehensive Metabolic Pane miranda 03-29-2023 Albumin [Mass/Vol] 3.8 g/dL Normal 3.5-5.7 [facility] Comment on above: Performed By: #### C STELLA, CMP #### [facility] [address] [place] [address] Albumin/Globulin [Mass ratio] 1.4 {ratio} Normal [facility] Comment on above: Performed By: #### C BCTED, CMP #### [facility] [address] [place] [id number] [place] ALP [Catalytic activity/Vol] 102 U/L Normal 34-104 [facility] Comment on above: Performed By: #### C BCNO, CMP #### [facility] [address] [place] [id number] [place] ALT [Catalytic activity/Vol] 10 U/L Normal 7-52 [facility] Comment on above: Performed By: #### C BCTED, CMP #### [facility] [address] Anion gap [Moles/Vol] 10.4 mmol/L Normal 6.0-15.0 [facility] Comment on above: Performed By: #### C STELLA, CMP #### [facility] [address] AST [Catalytic activity/Vol] 14 U/L Normal 13-39 [facility] Comment on above: Performed By: #### C STELLA, CMP #### [facility] [address] Bilirubin [Mass/Vol] 0.5 mg/dL Normal 0.3-1.0 [facility] Comment on above: Performed By: #### C STELLA, CMP #### [facility] [address] Calcium [Mass/Vol] 9.0 mg/dL Normal 8.6-10.3 [facility] Comment on above: Performed By: #### C STELLA, CMP #### [facility] [address] [place] [address] [place] Chloride [Moles/Vol] 103 mmol/L Normal 98-107 [facility] Comment on above: Performed By: #### C STELLA, CMP #### [facility] [address] CO2 [Moles/Vol] 28.4 mmol/L Normal 21.0-31.0 [facility] Comment on above: Performed By: #### C STELLA, CMP #### [facility] [address] [place] [address] [place] Creatinine [Mass/Vol] 0.67 mg/dL Normal 0.60-1.20 [facility] Comment on above: Performed By: #### C STELLA, CMP #### [facility] [address] [place] [address] [place] Creatinine Clr Calc Pharmacy 106.18 Normal [facility] Comment on above: Result Comment: PERF ORMED BY: [place] [address] PATHOLOGIST LOADING AND UNLOADING SUPERVISOR ROOSEVELT KEYES M.D. Performed By: #### C STELLA, CMP #### [facility] [address] [place] [address] [place] GFR/1.73 sq M.predicted MDRD (S/P/Bld) [Vol rate/Area] mL/min/{1.73_m2} [facility] Comment on above: Performed By: #### C STELLA, CMP #### [facility] [address] Globulin (S) [Mass/Vol] 2.7 g/dL [facility] Comment on above: Performed By: #### C STELLA, CMP #### [address] Glucose [Mass/Vol] 96 mg/dL Normal 70-100 [facility] Comment on above: Result Comment: [facility] Glucose Reference Range is dependent on time and content of last meal. Glucose of more than 200 mg/dL in a nonstressed, ambulatory subject supports the diagnosis of Diabetes Mellitus. ADA recommended reference range Performed By: #### C STELLA, CMP #### [facility] [address] [place] [address] [place] Potassium [Moles/Vol] 3.8 mmol/L Normal 3.5-5.1 [facility] Comment on above: Performed By: #### C STELLA, CMP #### [facility] [address] [place] [address] [place] Protein [Mass/Vol] 6.5 g/dL Normal 6.4-8.9 [facility] Comment on above: Performed By: #### C STELLA, CMP #### [facility] [address] [place] [address] [place] Sodium [Moles/Vol] 138 mmol/L Normal 136-145 [facility] Comment on above: Performed By: #### C BCTED, CMP #### [facility] [address] Urea nitrogen [Mass/Vol] 8 mg/dL Normal 7-25 [facility] Comment on above: Performed By: #### C BCNO, CMP #### [facility] [address] [place] [id number] [facility] [place] esophagus ugion [place] esophagus ugi [facility] [address] [place] [address] [place] [id number] Fluoroscopy Report Signed Patient: Constantino Cardoso MR#: [id number] : 1970 Acct:[id number] Age/Sex: 52 / F ADM Date: 03/26/23 Loc: Room: [address] [place] [address] Type: ADM IN Attending Dr: Deann Montalvo MD Copies to: MD Deann Blue MD Ordering Provider: Renny Gan MD Date of Service: 03/29/23 FL/FL esophagus ugi: NAUSEA DOUBLE CONTRAST UPPER GI SERIES CLINICAL HISTORY: Nausea vomiting. History of Ramiro fundoplication. COMPARISON: None TECHNIQUE: Double contrast upper GI series was performed. Cumulative Air Kerma in mGy: 305.03 mGy FINDINGS: Parquet Floor Layer image demonstrates no acute findings. The esophagus [...] APPEARS TO BE GASTROESOPHAGEAL REFLUX THROUGH THE RAIMRO FUNDOPLICATION. NO DEFINITIVE EVIDENCE OF STRICTURE, MASS OR ULCER. CORRELATION WITH ENDOSCOPY IS SUGGESTED. Impression dictated by: Tiburcio Bateman Jr., D.O.03/29/2023 1:23 PM Dictation Location: [place] [address] Transcribed By: [facility] 03/29/23 1323 Dictated By: Tiburcio Bateman Jr, DO 03/29/23 1317 Signed By: 03/29/23 1323 Normal [facility] Hemogram CBC Without Diffon 03-29-2023 Erythrocyte distribution width (RBC) [Ratio] 13.4 % Normal 11.9-15.3 [facility] Comment on above: Performed By: #### C BCTED, CMP #### [address] Hematocrit (Bld) [Volume fraction] 35.4 % Normal 34.0-46.4 [facility] Comment on above: Performed By: #### C BCTED, CMP #### [address] Hemoglobin (Bld) [Mass/Vol] 12.0 g/dL Normal 11.8-15.4 [facility] Comment on above: Performed By: #### C STELLA, CMP #### [address] MCH (RBC) [Entitic mass] 29.2 pg Normal 24.7-34.3 [facility] Comment on above: Performed By: #### C BCTED, CMP #### [address] MCV (RBC) [Entitic vol] 86.0 fL Normal 80-100 [facility] Comment on above: Performed By: #### C STELLA, CMP #### [address] Mean Corpuscular HGB Conc 33.9 g/dL Normal 32.0-35.0 [facility] Comment on above: Performed By: #### C BCTED, CMP #### [address] Platelet mean volume (Bld) [Entitic vol] 7.6 fL Normal 6.3-10.7 [facility] Comment on above: Result Comment: PERF ORMED BY: [place] [address] PATHOLOGIST LOADING AND UNLOADING SUPERVISOR ROOSEVELT KEYES M.D. Performed By: #### C BCTED, CMP #### [address] Platelets (Bld) [#/Vol] 288 10*3/uL Normal 150-450 [facility] Comment on above: Performed By: #### C STELLA, CMP #### [facility] [address] RBC (Bld) [#/Vol] 4.11 10*6/uL Normal 3.60-5.00 [facility] Comment on above: Performed By: #### C USAMANO, CMP #### [facility] [address] WBC (Bld) [#/Vol] 6.5 10*3/uL Normal 3.8-11.6 [facility] Comment on above: Performed By: #### C USAMANO, CMP #### [facility] [address] XR abdomen min 2Von 03-28-20 23 XR abdomen min 2V [facility] [address] [place] [address] [place] [address] XRay Report Signed Patient: Constantino Cardoso MR#: [id number] : 1970 Acct:[id number] Age/Sex: 52 / F ADM Date: 03/26/23 Loc: Room: [address] [place] [address] Type: ADM IN Attending Dr: Deann Montalvo [...] Bateman Jr., D.O.03/28/2023 12:24 PM Dictation Location: [place] [address] Transcribed By: [facility] 03/28/23 1224 Dictated By: Tiburcio Bateman Jr, DO 03/28/23 1223 Signed By: 03/28/23 1224 Normal [facility] Complete Blood Count Auto Di ffon 03-27-2023 Basophils (Bld) [#/Vol] 0.0 10*3/uL Normal 0.0-0.2 [facility] Comment on above: Result Comment: PERF ORMED BY: [place] [address] PATHOLOGIST LOADING AND UNLOADING SUPERVISOR ROOSEVELT KEYES M.D. Performed By: #### C BC #### [address] Basophils/100 WBC (Bld) 0.5 % Normal . [facility] Comment on above: Performed By: #### C BC #### [address] Eosinophils (Bld) [#/Vol] 0.2 10*3/uL Normal 0.0-0.45 [facility] Comment on above: Performed By: #### C BC #### [address] Eosinophils/100 WBC (Bld) 4.7 % Normal . [facility] Comment on above: Performed By: #### C BC #### [address] Erythrocyte distribution width (RBC) [Ratio] 13.6 % Normal 11.9-15.3 [facility] Comment on above: Performed By: #### C BC #### [address] Hematocrit (Bld) [Volume fraction] 34.1 % Normal 34.0-46.4 [facility] Comment on above: Performed By: #### C BC #### [place] [address] [place] Hemoglobin (Bld) [Mass/Vol] 11.4 g/dL Low 11.8-15.4 [facility] Comment on above: Performed By: #### C BC #### [place] [address] [place] Lymphocytes (Bld) [#/Vol] 1.3 10*3/uL Normal 1.00-4.8 [facility] Comment on above: Performed By: #### C BC #### [address] Lymphocytes/100 WBC (Bld) 32.8 % Normal . [facility] Comment on above: Performed By: #### C BC #### [address] MCH (RBC) [Entitic mass] 28.9 pg Normal 24.7-34.3 [facility] Comment on above: Performed By: #### C BC #### [address] MCV (RBC) [Entitic vol] 86.0 fL Normal 80-100 [facility] Comment on above: Performed By: #### C BC #### [address] Mean Corpuscular HGB Conc 33.6 g/dL Normal 32.0-35.0 [facility] Comment on above: Performed By: #### C BC #### [address] Monocytes (Bld) [#/Vol] 0.3 10*3/uL Normal 0.0-0.8 [facility] Comment on above: Performed By: #### C BC #### [address] Monocytes/100 WBC (Bld) 7.7 % Normal . [facility] Comment on above: Performed By: #### C BC #### [address] Neutrophils (Bld) [#/Vol] 2.1 10*3/uL Normal 1.8-7.7 [facility] Comment on above: Performed By: #### C BC #### [address] Neutrophils/100 WBC (Bld) 54.3 % Normal . [facility] Comment on above: Performed By: #### C BC #### [address] NRBC% 0.1 /100{WBC} Normal 0-0.5 [facility] Comment on above: Performed By: #### C BC #### [address] Platelet mean volume (Bld) [Entitic vol] 7.8 fL Normal 6.3-10.7 [facility] Comment on above: Performed By: #### C BC #### [address] Platelets (Bld) [#/Vol] 291 10*3/uL Normal 150-450 [facility] Comment on above: Performed By: #### C BC #### [address] RBC (Bld) [#/Vol] 3.97 10*6/uL Normal 3.60-5.00 [facility] Comment on above: Performed By: #### C BC #### [address] WBC (Bld) [#/Vol] 3.9 10*3/uL Normal 3.8-11.6 [facility] Comment on above: Performed By: #### C BC #### [address] Comprehensive Metabolic Pane miranda 03-27-2023 Albumin [Mass/Vol] 3.5 g/dL Normal 3.5-5.7 [facility] Comment on above: Performed By: #### H EPATIC, CBC, BMP, LIPASE #### [address] Albumin/Globulin [Mass ratio] 1.4 {ratio} Normal [facility] Comment on above: Performed By: #### H EPATIC, CBC, BMP, LIPASE #### [address] ALP [Catalytic activity/Vol] 91 U/L Normal 34-104 [facility] Comment on above: Performed By: #### H EPATIC, CBC, BMP, LIPASE #### [facility] [address] ALT [Catalytic activity/Vol] 10 U/L Normal 7-52 [facility] Comment on above: Performed By: #### H EPATIC, CBC, BMP, LIPASE #### [facility] [address] [place] [address] Anion gap [Moles/Vol] 6.9 mmol/L Normal 6.0-15.0 [facility] Comment on above: Performed By: #### H EPATIC, CBC, BMP, LIPASE #### [address] AST [Catalytic activity/Vol] 13 U/L Normal 13-39 [facility] Comment on above: Performed By: #### H EPATIC, CBC, BMP, LIPASE #### [address] Bilirubin [Mass/Vol] 0.5 mg/dL Normal 0.3-1.0 [facility] Comment on above: Performed By: #### H EPATIC, CBC, BMP, LIPASE #### [facility] [address] [place] [address] Calcium [Mass/Vol] 8.6 mg/dL Normal 8.6-10.3 [facility] Comment on above: Performed By: #### H EPATIC, CBC, BMP, LIPASE #### [facility] [address] [place] [address] [place] Chloride [Moles/Vol] 109 mmol/L High 98-107 [facility] Comment on above: Performed By: #### H EPATIC, CBC, BMP, LIPASE #### [facility] [address] [place] [address] CO2 [Moles/Vol] 28.9 mmol/L Normal 21.0-31.0 [facility] Comment on above: Performed By: #### H EPATIC, CBC, BMP, LIPASE #### [address] Creatinine [Mass/Vol] 0.72 mg/dL Normal 0.60-1.20 [facility] Comment on above: Performed By: #### H EPATIC, CBC, BMP, LIPASE #### [address] Creatinine Clr Calc Pharmacy 97.02 [facility] Comment on above: Performed By: #### H EPATIC, CBC, BMP, LIPASE #### [address] GFR/1.73 sq M.predicted MDRD (S/P/Bld) [Vol rate/Area] mL/min/{1.73_m2} [facility] Comment on above: Performed By: #### H EPATIC, CBC, BMP, LIPASE #### [address] Globulin (S) [Mass/Vol] 2.5 g/dL [facility] Comment on above: Performed By: #### H EPATIC, CBC, BMP, LIPASE #### [address] Glucose [Mass/Vol] 104 mg/dL High 70-100 [facility] Comment on above: Result Comment: [facility] Glucose Reference Range is dependent on time and content of last meal. Glucose of more than 200 mg/dL in a nonstressed, ambulatory subject supports the diagnosis of Diabetes Mellitus. ADA recommended reference range Performed By: #### H EPATIC, CBC, BMP, LIPASE #### [address] Potassium [Moles/Vol] 3.8 mmol/L Normal 3.5-5.1 [facility] Comment on above: Performed By: #### H EPATIC, CBC, BMP, LIPASE #### [address] Protein [Mass/Vol] 6.0 g/dL Low 6.4-8.9 [facility] Comment on above: Performed By: #### H EPATIC, CBC, BMP, LIPASE #### [address] Sodium [Moles/Vol] 141 mmol/L Normal 136-145 [facility] Comment on above: Performed By: #### H EPATIC, CBC, BMP, LIPASE #### [address] Urea nitrogen [Mass/Vol] 10 mg/dL Normal 7-25 [facility] Comment on above: Performed By: #### H EPATIC, CBC, BMP, LIPASE #### [facility] [address] [place] [address] Lipaseon 03-27-2023 Lipase [Catalytic activity/Vol] 14.0 U/L Normal 11.0-82.0 [facility] Comment on above: Result Comment: PERF ORMED BY: [place] [address] PATHOLOGIST LO[employer]ING [employer] UNLOADING SUPERVISOR ROOSEVELT KEYES M.D. Performed By: #### H EPATIC, CBC, BMP, LIPASE #### [address] Magnesiumon 03-27-2023 Magnesium [Mass/Vol] 1.8 mg/dL Low 1.9-2.7 [facility] Comment on above: Performed By: #### H EPATIC, CBC, BMP, LIPASE #### [address] angio abdomen pelvison CT angio abdomen pelvis [facility] [address] [place] [address] [place] [address] CT Scan Report Signed Patient: Constantino Cardoso MR#: [id number] : 1970 Acct:[id number] Age/Sex: 52 / F ADM Date: 03/26/23 Loc: Room: [address] [place] [address] Type: ADM IN Attending Dr: Raf Steward [...] Nora Benites M.D.03/26/2023 9:41 AM Dictation Location: [place] [address] Transcribed By: [facility] 03/26/2341 Dictated By: Nora Benites II, MD 03/26/23 0935 Signed By: 03/26/23 0941 [facility] [address] angio cheston 03-26-2023 CT angio chest [facility] [address] [place] [address] [place] [address] CT Scan Report Signed Patient: Constantino Cardoso MR#: [id number] : 1970 Acct:[id number] Age/Sex: 52 / F ADM Date: 03/26/23 Loc: Room: [address] [place] [address] Type: ADM IN Attending Dr: Raf Steward [...] Nora Benites M.D.03/26/2023 9:34 AM Dictation Location: [place] [address] Transcribed By: [facility] 03/26/23933 Dictated By: Nora Benites II, MD 03/26/2330 Signed By: 03/26/23933 [facility] Comprehensive Metabolic Pane miranda 03-26-2023 Albumin [Mass/Vol] 3.8 g/dL Normal 3.5-5.7 [facility] Comment on above: Performed By: #### P ORS #### [address] Albumin/Globulin [Mass ratio] 1.6 {ratio} Normal [facility] Comment on above: Performed By: #### P ORS #### [address] ALP [Catalytic activity/Vol] 105 U/L High 34-104 [facility] Comment on above: Performed By: #### P ORS #### [address] ALT [Catalytic activity/Vol] 11 U/L Normal 7-52 [facility] Comment on above: Performed By: #### P ORS #### [address] Anion gap [Moles/Vol] 9.7 mmol/L Normal 6.0-15.0 [facility] Comment on above: Performed By: #### P ORS #### [facility] [address] [place] [address] AST [Catalytic activity/Vol] 14 U/L Normal 13-39 [facility] Comment on above: Performed By: #### P ORS #### [address] Bilirubin [Mass/Vol] 0.4 mg/dL Normal 0.3-1.0 [facility] Comment on above: Performed By: #### P ORS #### [address] Calcium [Mass/Vol] 8.6 mg/dL Normal 8.6-10.3 [facility] Comment on above: Performed By: #### P ORS #### [facility] [address] [place] [address] Chloride [Moles/Vol] 107 mmol/L Normal 98-107 [facility] Comment on above: Performed By: #### P ORS #### [address] CO2 [Moles/Vol] 25.3 mmol/L Normal 21.0-31.0 [facility] Comment on above: Performed By: #### P ORS #### [facility] [address] Creatinine [Mass/Vol] 0.76 mg/dL Normal 0.60-1.20 [facility] Comment on above: Performed By: #### P ORS #### [place] [address] [place] Creatinine Clr Calc Pharmacy 92.46 [facility] Comment on above: Performed By: #### P ORS #### [place] [address] [place] GFR/1.73 sq M.predicted MDRD (S/P/Bld) [Vol rate/Area] mL/min/{1.73_m2} [facility] Comment on above: Performed By: #### P ORS #### [address] Globulin (S) [Mass/Vol] 2.4 g/dL [facility] Comment on above: Performed By: #### P ORS #### [address] Glucose [Mass/Vol] 122 mg/dL High 70-100 [facility] Comment on above: Result Comment: [facility] Glucose Reference Range is dependent on time and content of last meal. Glucose of more than 200 mg/dL in a nonstressed, ambulatory subject supports the diagnosis of Diabetes Mellitus. ADA recommended reference range Performed By: #### P ORS #### [address] Potassium [Moles/Vol] 4.0 mmol/L Normal 3.5-5.1 [facility] Comment on above: Performed By: #### P ORS #### [address] Protein [Mass/Vol] 6.2 g/dL Low 6.4-8.9 [facility] Comment on above: Performed By: #### P ORS #### [address] Sodium [Moles/Vol] 138 mmol/L Normal 136-145 [facility] Comment on above: Performed By: #### P ORS #### [facility] [address] [place] [address] Urea nitrogen [Mass/Vol] 12 mg/dL Normal 7-25 [facility] Comment on above: Performed By: #### P ORS #### [address] Drug Screen,Urineon 03-26-20 Amphetamine Screen,Urine Negative Normal Negative [facility] Comment on above: Performed By: #### H EPATIC, CBC, BMP, LIPASE #### [address] Barbiturate Screen,Urine Negative Normal Negative [facility] Comment on above: Performed By: #### H EPATIC, CBC, BMP, LIPASE #### [address] Benzodiazepines Screen,Urine Negative Normal Negative [facility] Comment on above: Performed By: #### H EPATIC, CBC, BMP, LIPASE #### [address] Cannabinoid Screen,Urine Negative Normal Negative [facility] Comment on above: Result Comment: Thes e are unconfirmed results and should not be used for legal purposes. Drug Cut-Off Concentration: AMPH 1000 ng/mL HAWA 200 ng/mL ELSA 200 ng/mL COCM 300 ng/mL OP 300 ng/mL PCP 25 ng/mL THC 20 ng/mL PERFORMED BY: [place] [address] PATHOLOGIST LOADING AND UNLOADING SUPERVISOR ROOSEVELT KEYES M.D. Performed By: #### H EPATIC, CBC, BMP, LIPASE #### [address] Cocaine Screen,Urine Negative Normal Negative [facility] Comment on above: Performed By: #### H EPATIC, CBC, BMP, LIPASE #### [address] Opiate Screen,Urine Positive High Negative [facility] Comment on above: Performed By: #### H EPATIC, CBC, BMP, LIPASE #### [facility] [address] Phencyclidine Screen,Urine Negative Normal Negative [facility] Comment on above: Performed By: #### H EPATIC, CBC, BMP, LIPASE #### [facility] [address] [place] [id number] [place] [facility] echo transthoracicon [facility] echo transthoracic [facility] [address] [place] [address] [place] [address] Echocardiogram Signed Patient: Constantino Cardoso MR#: [id number] : 1970 Acct:[id number] Age/Sex: 52 / F ADM Date: 03/26/23 Loc: Room: [address] [place] [address] Type: ADM IN Attending Dr: Raf Steward MD Ordering Provider: Ron Fair MD Date of Service: 03/26/23 [facility] echo transthoracic: chest pain Copies to: MD Holly Lieberman MD, [facility] BSA: 1.9 m2 BP: 155/86 mmHg [...] 03/26/23 0909 Signed By: Holly Castro MD, [facility] 03/26/23 1148 Normal [facility] Hepatic Panelon 03-26-2023 Bilirubin,Indirect 0.3 mg/dL Normal [facility] Comment on above: Performed By: #### P ORS #### [facility] [address] Bilirubin.indirect [Mass/Vol] 0.10 mg/dL Normal 0.03-0.18 [facility] Comment on above: Performed By: #### P ORS #### [facility] [address] Lactic Acidon 03-26-2023 Lactate [Moles/Vol] 0.5 mmol/L Normal 0.5-2.2 [facility] Comment on above: Result Comment: PERF ORMED BY: [place] [address] PATHOLOGIST LOADING [employer] UNLOADING SUPERVISOR ROOSEVELT KEYES M.D. Performed By: #### L ACTIC, HEPATIC, LIPASE, CMP, HS TROP, MG #### [facility] [address] Lipaseon 03-26-2023 Lipase [Catalytic activity/Vol] 8.0 U/L Low 11.0-82.0 [facility] Comment on above: Result Comment: PERF ORMED BY: [place] [address] PATHOLOGIST LOADING AND UNLOADING SUPERVISOR ROOSEVELT KEYES M.D. Performed By: #### P ORS #### [facility] [address] Magnesiumon 03-26-2023 Magnesium [Mass/Vol] 1.8 mg/dL Low 1.9-2.7 [facility] Comment on above: Performed By: #### P ORS #### [facility] [address] [place] [address] [place] Porphyrins,Stoolon 3 Porphyrins,Stool Normal [facility] Comment on above: Result Comment: See report. Scanned copy available in EMR. PERFORMED BY: [place] [address] PATHOLOGIST LOADING AND UNLOADING SUPERVISOR ROOSEVELT KEYES M.D. Performed By: #### P ORS #### [facility] [address] [place] [address] Troponin I High Sensitivityo n 03-26-2023 Troponin I High Sensitivity 13.8 pg/mL Normal 0.0-15.0 [facility] Comment on above: Result Comment: PERF ORMED BY: [place] [address] PATHOLOGIST LOADING AND UNLOADING SUPERVISOR ROOSEVELT KEYES M.D. Performed By: #### H EPATIC, CBC, BMP, LIPASE #### [facility] [address] [place] [address] Troponin I High Sensitivity 14.1 pg/mL Normal 0.0-15.0 [facility] Comment on above: Result Comment: PERF ORMED BY: [place] [address] PATHOLOGIST LOADING AND UNLOADING SUPERVISOR ROOSEVELT KEYES M.D. Performed By: #### P ORS #### [facility] [address] [place] [address] Alanine aminotransferase [En zymatic activity/volume] in Serum or PlasmaOrdered By: Pete Thakkar on 03-23-2023 ALT [Catalytic activity/Vol] 11 U/L 7-52 [facility] Albumin [Mass/volume] in Ser um or Plasma by Bromocresol green (BCG) dye binding methoOrdered By: Pete Thakkar on 03-23-2023 Albumin BCG dye [Mass/Vol] 4.1 g/dL 3.5-5.7 [facility] Alkaline phosphatase [Enzyma tic activity/volume] in Serum or PlasmaOrdered By: Pete Thakkar on 03-23-2023 ALP [Catalytic activity/Vol] 115 U/L 34-104 [facility] Aspartate aminotransferase [ Enzymatic activity/volume] in Serum or PlasmaOrdered By: Pete Thakkar on 03-23-2023 AST [Catalytic activity/Vol] 15 U/L 13-39 [facility] Automated erythrocytes count in urine sediment (number/area)Ordered By: Pete Thakkar on 03-23-2023 RBC Auto (Urine sed) [#/Area] 0-1 [HPF] 0-4 [facility] Automated leukocytes count i n urine sediment (number/area)Ordered By: Pete Thakkar on 03-23-2023 WBC Auto (Urine sed) [#/Area] 0-1 [HPF] 0-4 [facility] Basic Metabolic Panelon 03-05 Anion gap [Moles/Vol] 10.1 mmol/L Normal 6.0-15.0 [facility] Comment on above: Performed By: #### H EPATIC, CBC, BMP, LIPASE #### [facility] [address] Calcium [Mass/Vol] 9.0 mg/dL Normal 8.6-10.3 [facility] Comment on above: Performed By: #### H EPATIC, CBC, BMP, LIPASE #### [facility] [address] Chloride [Moles/Vol] 111 mmol/L High 98-107 [facility] Comment on above: Performed By: #### H EPATIC, CBC, BMP, LIPASE #### [facility] [address] [place] [address] [place] CO2 [Moles/Vol] 24.5 mmol/L Normal 21.0-31.0 [facility] Comment on above: Performed By: #### H EPATIC, CBC, BMP, LIPASE #### [facility] [address] Creatinine [Mass/Vol] 0.72 mg/dL Normal 0.60-1.20 [facility] Comment on above: Performed By: #### H EPATIC, CBC, BMP, LIPASE #### [facility] [address] [place] [address] Creatinine Clr Calc Pharmacy 105.27 [facility] Comment on above: Performed By: #### H EPATIC, CBC, BMP, LIPASE #### [address] GFR/1.73 sq M.predicted MDRD (S/P/Bld) [Vol rate/Area] mL/min/{1.73_m2} [facility] Comment on above: Performed By: #### H EPATIC, CBC, BMP, LIPASE #### [address] Glucose [Mass/Vol] 79 mg/dL Normal 70-100 [facility] Comment on above: Result Comment: [facility] Glucose Reference Range is dependent on time and content of last meal. Glucose of more than 200 mg/dL in a nonstressed, ambulatory subject supports the diagnosis of Diabetes Mellitus. ADA recommended reference range Performed By: #### H EPATIC, CBC, BMP, LIPASE #### [address] Potassium [Moles/Vol] 3.6 mmol/L Normal 3.5-5.1 [facility] Comment on above: Performed By: #### H EPATIC, CBC, BMP, LIPASE #### [address] Sodium [Moles/Vol] 142 mmol/L Normal 136-145 [facility] Comment on above: Performed By: #### H EPATIC, CBC, BMP, LIPASE #### [address] Urea nitrogen [Mass/Vol] 24 mg/dL Normal 7-25 [facility] Comment on above: Performed By: #### H EPATIC, CBC, BMP, LIPASE #### [address] Basophils Auto (Bld) [#/Vol] Ordered By: Pete Thakkar on 03-23-2023 Basophils (Bld) [#/Vol] 0.1 10*3/uL 0.0-0.2 [facility] Basophils/100 WBC Auto (Bld) Ordered By: Pete Thakkar on 03-23-2023 Basophils/100 WBC (Bld) 1.0 % . [facility] Bilirubin Test strip Ql (U)O rdered By: Pete Thakkar on 03-23-2023 Bilirubin Ql (U) Negative Negative [facility] Bilirubin.direct [Mass/volum e] in Serum or PlasmaOrdered By: Pete Thakkar on 03-23-2023 Bilirubin.direct [Mass/Vol] 0.10 mg/dL 0.03-0.18 [facility] Bilirubin.total [Mass/volume ] in Serum or PlasmaOrdered By: Pete Thakkar on 03-23-2023 Bilirubin [Mass/Vol] 0.3 mg/dL 0.3-1.[address] [facility] [address] abdomen pelvis w conon CT abdomen pelvis w con [facility] [address] CT Scan Report Signed Patient: Constantino Cardoso MR#: [id number] : 1970 Acct:[id number] Age/Sex: 52 / F ADM Date: 03/23/23 Loc: ER Room: Type: [facility] ER Attending Dr: Copies to: Pete [...] Columba Domínguez M.D.03/23/2023 7:47 AM Dictation Location: [place] [address] Transcribed By: [facility] 03/23/2347 Dictated By: Columba Domínguez MD 03/23/23 0742 Signed By: 03/23/2347 Normal [facility] Calcium [Mass/volume] in Ser um or PlasmaOrdered By: Pete Thakkar on 03-23-2023 Calcium [Mass/Vol] 9.0 mg/dL 8.6-10.3 [facility] Carbon dioxide, total [Moles /volume] in Serum or PlasmaOrdered By: Pete Thakkar on 03-23-2023 CO2 [Moles/Vol] 24.5 mmol/L 21.0-31.0 [facility] Chloride [Moles/volume] in S cristine or PlasmaOrdered By: Pete Thakkar on 03-23-2023 Chloride [Moles/Vol] 111 mmol/L 98-107 [facility] Color Auto (U)Ordered By: Shoaib Thakkar on 03-23-2023 Color (U) Yellow Yellow [facility] Complete Blood Count Auto Di ffon 03-23-2023 Basophils (Bld) [#/Vol] 0.1 10*3/uL Normal 0.0-0.2 [facility] Comment on above: Result Comment: PERF ORMED BY: [facility] [address] [place] [address] PATHOLOGIST LOADING AND UNLOADING SUPERVISOR ROOSEVELT KEYES M.D. Performed By: #### H EPATIC, CBC, BMP, LIPASE #### [address] Basophils/100 WBC (Bld) 1.0 % Normal . [facility] Comment on above: Performed By: #### H EPATIC, CBC, BMP, LIPASE #### [address] Eosinophils (Bld) [#/Vol] 0.3 10*3/uL Normal 0.0-0.45 [facility] Comment on above: Performed By: #### H EPATIC, CBC, BMP, LIPASE #### [address] Eosinophils/100 WBC (Bld) 5.0 % Normal . [facility] Comment on above: Performed By: #### H EPATIC, CBC, BMP, LIPASE #### [address] Erythrocyte distribution width (RBC) [Ratio] 13.6 % Normal 11.9-15.3 [facility] Comment on above: Performed By: #### H EPATIC, CBC, BMP, LIPASE #### [address] Hematocrit (Bld) [Volume fraction] 35.7 % Normal 34.0-46.4 [facility] Comment on above: Performed By: #### H EPATIC, CBC, BMP, LIPASE #### [address] Hemoglobin (Bld) [Mass/Vol] 12.0 g/dL Normal 11.8-15.4 [facility] Comment on above: Performed By: #### H EPATIC, CBC, BMP, LIPASE #### [address] Lymphocytes (Bld) [#/Vol] 2.3 10*3/uL Normal 1.00-4.8 [facility] Comment on above: Performed By: #### H EPATIC, CBC, BMP, LIPASE #### [address] Lymphocytes/100 WBC (Bld) 36.1 % Normal . [facility] Comment on above: Performed By: #### H EPATIC, CBC, BMP, LIPASE #### [address] MCH (RBC) [Entitic mass] 29.2 pg Normal 24.7-34.3 [facility] Comment on above: Performed By: #### H EPATIC, CBC, BMP, LIPASE #### [address] MCV (RBC) [Entitic vol] 86.7 fL Normal 80-100 [facility] Comment on above: Performed By: #### H EPATIC, CBC, BMP, LIPASE #### [address] Mean Corpuscular HGB Conc 33.7 g/dL Normal 32.0-35.0 [facility] Comment on above: Performed By: #### H EPATIC, CBC, BMP, LIPASE #### [address] Monocytes (Bld) [#/Vol] 0.5 10*3/uL Normal 0.0-0.8 [facility] Comment on above: Performed By: #### H EPATIC, CBC, BMP, LIPASE #### [address] Monocytes/100 WBC (Bld) 16.44 % Normal 0.00-20.00 [facility] Comment on above: Performed By: #### H EPATIC, CBC, BMP, LIPASE #### [address] Monocytes/100 WBC (Bld) 7.7 % Normal . [facility] Comment on above: Performed By: #### H EPATIC, CBC, BMP, LIPASE #### [address] Neutrophils (Bld) [#/Vol] 3.2 10*3/uL Normal 1.8-7.7 [facility] Comment on above: Performed By: #### H EPATIC, CBC, BMP, LIPASE #### [address] Neutrophils/100 WBC (Bld) 50.2 % Normal . [facility] Comment on above: Performed By: #### H EPATIC, CBC, BMP, LIPASE #### [address] NRBC% 0.1 /100{WBC} Normal 0-0.5 [facility] Comment on above: Performed By: #### H EPATIC, CBC, BMP, LIPASE #### [address] Platelet mean volume (Bld) [Entitic vol] 7.6 fL Normal 6.3-10.7 [facility] Comment on above: Performed By: #### H EPATIC, CBC, BMP, LIPASE #### [address] Platelets (Bld) [#/Vol] 357 10*3/uL Normal 150-450 [facility] Comment on above: Performed By: #### H EPATIC, CBC, BMP, LIPASE #### [address] RBC (Bld) [#/Vol] 4.12 10*6/uL Normal 3.60-5.00 [facility] Comment on above: Performed By: #### H EPATIC, CBC, BMP, LIPASE #### [address] WBC (Bld) [#/Vol] 6.3 10*3/uL Normal 3.8-11.6 [facility] Comment on above: Performed By: #### H EPATIC, CBC, BMP, LIPASE #### [address] Creatinine [Mass/volume] in Serum or PlasmaOrdered By: Pete Thakkar on 03-23-2023 Creatinine [Mass/Vol] 0.72 mg/dL 0.60-1.20 [facility] Dipstick and Microscopicon 0 03-23-2023 Appearance (U) Clear Normal Clear [facility] Comment on above: Order Comment: Name Collection Type:: Clean-Voided Midstream Performed By: #### P ORS #### [facility] [address] Bacteria,Urine 1+ High None Seen [facility] Comment on above: Order Comment: Name Collection Type:: Clean-Voided Midstream Performed By: #### P ORS #### [facility] [address] [place] [address] [place] Bilirubin,Urine Negative Normal Negative [facility] Comment on above: Order Comment: Name Collection Type:: Clean-Voided Midstream Performed By: #### P ORS #### [address] Color (U) Yellow Normal Yellow [facility] Comment on above: Order Comment: Name Collection Type:: Clean-Voided Midstream Performed By: #### P ORS #### [facility] [address] [place] [address] Glucose Ql (U) Normal Normal Normal [facility] Comment on above: Order Comment: Name Collection Type:: Clean-Voided Midstream Performed By: #### P ORS #### [place] [address] [place] Hyaline Casts,Urine None Seen Normal 0-8 [facility] Comment on above: Order Comment: Name Collection Type:: Clean-Voided Midstream Result Comment: PERF ORMED BY: [place] [address] PATHOLOGIST LOADING AND UNLOADING SUPERVISOR ROOSEVELT KEYES M.D. Performed By: #### P ORS #### [facility] [address] [place] [address] [place] Ketones Ql (U) Negative Normal Negative [facility] Comment on above: Order Comment: Name Collection Type:: Clean-Voided Midstream Performed By: #### P ORS #### [facility] [address] [place] [address] [place] Leukocyte esterase Test strip Ql (U) Negative Normal Negative [facility] Comment on above: Order Comment: Name Collection Type:: Clean-Voided Midstream Performed By: #### P ORS #### [address] Nitrite,Urine Negative Normal Negative [facility] Comment on above: Order Comment: Name Collection Type:: Clean-Voided Midstream Performed By: #### P ORS #### [address] Occult Blood,Urine Trace High Negative [facility] Comment on above: Order Comment: Name Collection Type:: Clean-Voided Midstream Result Comment: PERF ORMED BY: [place] [address] PATHOLOGIST LOADING AND UNLOADING SUPERVISOR ROOSEVELT KEYES M.D. Performed By: #### P ORS #### [address] pH (U) 5.0 [pH] Normal 5.0-9.0 [facility] Comment on above: Order Comment: Name Collection Type:: Clean-Voided Midstream Performed By: #### P ORS #### [address] Protein,Urine Negative Normal Negative [facility] Comment on above: Order Comment: Name Collection Type:: Clean-Voided Midstream Performed By: #### P ORS #### [address] RBC LM.HPF (Urine sed) [#/Area] 0 /[HPF] Normal 0-4 [facility] Comment on above: Order Comment: Name Collection Type:: Clean-Voided Midstream Performed By: #### P ORS #### [address] Specificy [place],Urine 1.048 High 1.001-1.030 [facility] Comment on above: Order Comment: Name Collection Type:: Clean-Voided Midstream Performed By: #### P ORS #### [address] Squamous Epithelial Cell,Urine None Seen Normal 0-2 [facility] Comment on above: Order Comment: Name Collection Type:: Clean-Voided Midstream Performed By: #### P ORS #### [facility] [address] Urobilinogen,Urine Normal Normal Normal [facility] Comment on above: Order Comment: Name Collection Type:: Clean-Voided Midstream Performed By: #### P ORS #### [facility] [address] [place] [address] WBC LM.HPF (Urine sed) [#/Area] 0 /[HPF] Normal 0-4 [facility] Comment on above: Order Comment: Name Collection Type:: Clean-Voided Midstream Performed By: #### P ORS #### [facility] [address] [place] [address] Eosinophils Auto (Bld) [#/Vo l]Ordered By: Pete Thakkar on 03-23-2023 Eosinophils (Bld) [#/Vol] 0.3 10*3/uL 0.0-0.45 [facility] Eosinophils/100 WBC Auto (Bl d)Ordered By: Pete Thakkar on 03-23-2023 Eosinophils/100 WBC (Bld) 5.0 % . [facility] Erythrocyte distribution wid th Auto (RBC) [Ratio]Ordered By: Pete Thakkar on 03-23-2023 Erythrocyte distribution width (RBC) [Ratio] 13.6 % 11.9-15.3 [facility] Globulin Calc (S) [Mass/Vol] Ordered By: Pete Thakkar on 03-23-2023 Globulin (S) [Mass/Vol] 2.9 g/dL [facility] Glucose [Mass/volume] in Ser um or PlasmaOrdered By: Pete Thakkar on 03-23-2023 Glucose [Mass/Vol] 79 mg/dL 70-100 [facility] Comment on above: ADA recommended refe rence rangeRandom Glucose Reference Range is dependent on time and content of last meal. Glucose of more than 200 mg/dL in a nonstressed, ambulatory subject supports the diagnosis of Diabetes Mellitus. Hematocrit Auto (Bld) [Volum e fraction]Ordered By: Pete Thakkar on 03-23-2023 Hematocrit (Bld) [Volume fraction] 35.7 % 34.0-46.4 [facility] Hemoglobin [Mass/volume] in BloodOrdered By: Pete Bijan on 03-23-2023 Hemoglobin (Bld) [Mass/Vol] 12.0 g/dL 11.8-15.4 [facility] Hepatic Panelon 03-23-2023 Albumin [Mass/Vol] 4.1 g/dL Normal 3.5-5.7 [facility] Comment on above: Performed By: #### H EPATIC, CBC, BMP, LIPASE #### [facility] [address] Albumin/Globulin [Mass ratio] 1.4 {ratio} Normal [facility] Comment on above: Performed By: #### H EPATIC, CBC, BMP, LIPASE #### [facility] [address] ALP [Catalytic activity/Vol] 115 U/L High 34-104 [facility] Comment on above: Performed By: #### H EPATIC, CBC, BMP, LIPASE #### [facility] [address] [place] [address] [place] ALT [Catalytic activity/Vol] 11 U/L Normal 7-52 [facility] Comment on above: Performed By: #### H EPATIC, CBC, BMP, LIPASE #### [facility] [address] [place] [id number] [place] AST [Catalytic activity/Vol] 15 U/L Normal 13-39 [facility] Comment on above: Performed By: #### H EPATIC, CBC, BMP, LIPASE #### [facility] [address] [place] [id number] [place] Bilirubin [Mass/Vol] 0.3 mg/dL Normal 0.3-1.0 [facility] Comment on above: Performed By: #### H EPATIC, CBC, BMP, LIPASE #### [facility] [address] [place] [address] [place] Bilirubin,Indirect 0.2 mg/dL Normal [facility] Comment on above: Performed By: #### H EPATIC, CBC, BMP, LIPASE #### [facility] [address] Bilirubin.indirect [Mass/Vol] 0.10 mg/dL Normal 0.03-0.18 [facility] Comment on above: Performed By: #### H EPATIC, CBC, BMP, LIPASE #### [facility] [address] Globulin (S) [Mass/Vol] 2.9 g/dL Normal [facility] Comment on above: Performed By: #### H EPATIC, CBC, BMP, LIPASE #### [address] Protein [Mass/Vol] 7.0 g/dL Normal 6.4-8.9 [facility] Comment on above: Performed By: #### H EPATIC, CBC, BMP, LIPASE #### [address] Ketones Auto test strip (U) [Mass/Vol]Ordered By: Pete Thakkar on 03-23-2023 Ketones (U) [Mass/Vol] Negative Negative [facility] Laboratory - UrinalysisOrder ed By: Pete Thakkar on 03-23-2023 Hyaline casts LM Ql (Urine sed) None seen [LPF] 0-8 [facility] Leukocytes [#/volume] correc jun for nucleated erythrocytes in Blood by Automated counOrdered By: Pete Thakkar on 03-23-2023 WBC corrected for nucl RBC Auto (Bld) [#/Vol] 6.3 10*3/uL 3.8-11.6 [facility] Lipaseon 03-23-2023 Lipase [Catalytic activity/Vol] 32.0 U/L Normal 11.0-82.0 [facility] Comment on above: Result Comment: PERF ORMED BY: [place] [address] PATHOLOGIST LOADING AND UNLOADING SUPERVISOR ROOSEVELT KEYES M.D. Performed By: #### H EPATIC, CBC, BMP, LIPASE #### [address] Lipase [Enzymatic activity/v olume] in Serum or PlasmaOrdered By: Pete Thakkar on 03-23-2023 Lipase [Catalytic activity/Vol] 32.0 U/L 11.0-82.0 [facility] Lymphocytes Auto (Bld) [#/Vo l]Ordered By: Pete Thakkar on 03-23-2023 Lymphocytes (Bld) [#/Vol] 2.3 10*3/uL 1.00-4.8 [facility] Lymphocytes/100 WBC Auto (Bl d)Ordered By: Pete Thakkar on 03-23-2023 Lymphocytes/100 WBC (Bld) 36.1 % . [facility] MCH Auto (RBC) [Entitic mass ]Ordered By: Pete Thakkar on 03-23-2023 MCH (RBC) [Entitic mass] 29.2 pg 24.7-34.3 [facility] MCHC Auto (RBC) [Mass/Vol]Or dered By: Pete Thakkar on 03-23-2023 MCHC (RBC) [Mass/Vol] 33.7 g/dL 32.0-35.0 [facility] MCV Auto (RBC) [Entitic vol] Ordered By: Pete Thakkar on 03-23-2023 MCV (RBC) [Entitic vol] 86.7 fL 80-100 [facility] Monocyte distribution width [Entitic volume] in Blood by AutomatedOrdered By: Pete Thakkar on 03-23-2023 Monocyte distribution width Auto (Bld) [Entitic vol] 16.44 % 0.00-20.00 [facility] Monocytes Auto (Bld) [#/Vol] Ordered By: Pete Thakkar on 03-23-2023 Monocytes (Bld) [#/Vol] 0.5 10*3/uL 0.0-0.8 [facility] Monocytes/100 WBC Auto (Bld) Ordered By: Pete Thakkar on 03-23-2023 Monocytes/100 WBC (Bld) 7.7 % . [facility] Neutrophils Auto (Bld) [#/Vo l]Ordered By: Pete Thakkar on 03-23-2023 Neutrophils (Bld) [#/Vol] 3.2 10*3/uL 1.8-7.7 [facility] Neutrophils/100 WBC Auto (Bl d)Ordered By: Pete Thakkar on 03-23-2023 Neutrophils/100 WBC (Bld) 50.2 % . [facility] Nitrite Test strip Ql (U)Ord ered By: Pete Thakkar on 03-23-2023 Nitrite Ql (U) Negative Negative [facility] No Panel InformationOrdered By: Pete Thakkar on 03-23-2023 Estimated GFR (CKD-EPI) > 60.0 mL/Min [facility] Creatinine Clearance (Chem 105.27 [facility] Nucleated erythrocytes [Pres ence] in Blood by Automated countOrdered By: Pete Thakkar on 03-23-2023 Nucleated RBC Auto Ql (Bld) 0.1 /100{WBC} 0-0.5 [facility] Platelet mean volume Auto (B ld) [Entitic vol]Ordered By: Pete Thakkar on 03-23-2023 Platelet mean volume (Bld) [Entitic vol] 7.6 fL 6.3-10.7 [facility] Platelets Auto (Bld) [#/Vol] Ordered By: Pete Thakkar on 03-23-2023 Platelets (Bld) [#/Vol] 357 10*3/uL 150-450 [facility] Potassium [Moles/volume] in Serum or PlasmaOrdered By: Pete Thakkar on 03-23-2023 Potassium [Moles/Vol] 3.6 mmol/L 3.5-5.1 [facility] Protein Auto test strip (U) [Mass/Vol]Ordered By: Pete Thakkar on 03-23-2023 Protein (U) [Mass/Vol] Negative Negative [facility] Protein [Mass/volume] in Ser um or PlasmaOrdered By: Pete Thakkar on 03-23-2023 Protein [Mass/Vol] 7.0 g/dL 6.4-8.9 [facility] RBC Auto (Bld) [#/Vol]Ordere d By: Pete Thakkar on 03-23-2023 RBC (Bld) [#/Vol] 4.12 10*6/uL 3.60-5.00 [facility] Serum or plasma albumin/glob ulin mass ratioOrdered By: Pete Thakkar on 03-23-2023 Albumin/Globulin [Mass ratio] 1.4 {ratio} [facility] Serum or plasma anion gap de terminationOrdered By: Pete Thakkar on 03-23-2023 Anion gap [Moles/Vol] 10.1 mmol/L 6.0-15.0 [facility] Serum or plasma non-glucuron idated bilirubin measurement (mass/volume)Ordered By: Pete Thakkar on 03-23-2023 Bilirubin.indirect [Mass/Vol] 0.2 mg/dL [facility] Sodium [Moles/volume] in Ser um or PlasmaOrdered By: Pete Thakkar on 03-23-2023 Sodium [Moles/Vol] 142 mmol/L 136-145 [facility] Specific gravity Auto test s trip (U) [Rel density]Ordered By: Pete Thakkar on 03-23-2023 Specific gravity (U) [Rel density] 1.048 1.001-1.030 [facility] Squamous epithelial cells de tection in urine sediment by light microscopyOrdered By: Pete Thakkar on 03-23-2023 Epithelial cells.squamous LM Ql (Urine sed) None seen [HPF] 0-2 [facility] Troponin I High Sensitivityo n 03-23-2023 Troponin I High Sensitivity 12.2 pg/mL Normal 0.0-15.0 [facility] Comment on above: Result Comment: PERF ORMED BY: [place] [address] PATHOLOGIST LOADING AND UNLOADING SUPERVISOR ROOSEVELT KEYES M.D. Performed By: #### H S TROP #### [address] Troponin I.cardiac [Mass/vol ume] in Serum or Plasma by Detection limit <= 0.01 ng/Ordered By: Pete Thakkar on 03-23-2023 Troponin I.cardiac DL <= 0.01 ng/mL [Mass/Vol] 12.2 pg/mL 0.0-15.0 [facility] Urea nitrogen [Mass/volume] in Serum or PlasmaOrdered By: Pete Thakkar on 03-23-2023 Urea nitrogen [Mass/Vol] 24 mg/dL 7-25 [facility] Urine bacteria detection by automated methodOrdered By: Pete Thakkar on 03-23-2023 Bacteria Auto Ql (U) 1+ None Seen [facility] Urine clarity by refractomet ry automatedOrdered By: Ptee Thakkar on 03-23-2023 Clarity Refractometry automated (U) Clear Clear [facility] Urine glucose measurement by automated test strip (mass/volume)Ordered By: Pete Thakkar on 03-23-2023 Glucose Auto test strip (U) [Mass/Vol] Normal mg/dL Normal [facility] Urine hemoglobin detection b y automated test stripOrdered By: Pete Thakkar on 03-23-2023 Hemoglobin Auto test strip Ql (U) Trace Negative [facility] Urine leukocyte esterase det ection by automated test stripOrdered By: Pete Thakkar on 03-23-2023 Leukocyte esterase Auto test strip Ql (U) Negative Negative [facility] Urobilinogen Auto test strip (U) [Mass/Vol]Ordered By: Pete Thakkar on 03-23-2023 Urobilinogen (U) [Mass/Vol] Normal mg/dL Normal [facility] WBC Auto (Bld) [#/Vol]Ordere d By: Pete Thakkar on 03-23-2023 WBC (Bld) [#/Vol] 6.3 10*3/uL 3.8-11.6 [facility] pH Auto test strip (U)Ordere d By: Pete Thakkar on 03-23-2023 pH (U) 5.0 [pH] 5.0-9.0 [facility] Discharge Instructionson Discharge Instructions [id number]#[id number]:127 [facility] Comment on above: Other Comment: wrong folder Prescriptions/Work Noteson 0 03-03-2023 Prescriptions/Work Notes [id number]#[id number]:127 [facility] Consent for Treatmenton 02-03 Consent for Treatment [id number]#1.00CD:127 [facility] Discharge Instructionson Discharge Instructions [id number]#[id number]:127 [facility] ED Clinical Summaryon 2022 ED Clinical Summary (Inserted Image. Kristin ble to display) [address] [address] ED Clinical Summary Person Information Name: CONSTANTINO CARDOSO [place] Age: 52 Years : 1970 Sex: Female Language: Wolof PCP: JUDI YOUSSEF CNP Marital Status: Phone: [phone] MRN: Visit Id: Visit Reason: Wrist pain-swelling; [...] 01:41:18 02/19/2023 01:41:18 ADDRESS: [address] [facility] [id number] PHYS DOC NOTES: MEDICAL INFORMATION: Prescriptions Given: New Medications [id number], [address], [place] [id number], [phone] naproxen (Naprosyn 500 mg Tab) 1 Tablets [...] With: Address: When: JUDI YOUSSEF [address] [facility] [place] [phone] Business (1) In 3 days 02/22/2023 Comments: Take the pain medication as prescribed as needed for pain. Please follow-up with your primary care doctor in the next 2 to 3 days for further evaluation management. Please return to the ED for any new or worsening symptoms or DIAGNOSIS: Right wrist sprain [facility] ED Note-Physicianon 02-20-20 ED Note-Physician Basic Information Time Seen: Zabrina Patton DO 02/19/2023 00:51 Chief Complaint states fell yesterday injuring right wrist. was seen at [facility]. splint in place. states pain radiating up the arm. taking motrin and tylenol History of Present Illness Patient is a 52-year-old female with past medical history of hypertension gastroparesis presenting to the ED for evaluation of right arm pain. Patient had a fall yesterday was seen at [facility] had x-rays and was told it was [...] and Complexity of Problems Differential Diagnosis: [] [facility] Data External documents reviewed: [] My EKG [...] and elbow are obtained. Patient is given [place] in the ED for pain. X-rays do [...] pain, # 20 tab(s), Refills(s) 0, Pharmacy: [id number], 170, cm, 02/19/23 0:56:00 EDT, Height/Length Dosing, 90.2, kg, 02/19/23 0:56:00 EDT, Weight Dosing XR Elbow 3+ Views Right XR Wrist 3+ Views Right Medications Administered Given [place] 5/325 Tab, 1 tab(s), Oral Disposition Plan Discharge Prescription List Prescriptions Naprosyn 500 mg Tab, 500 mg= 1 tab(s), Oral, BID, PRN Follow-up With When Contact Information JUDI YOUSSEF In 3 days 02/22/2023 EDT [address] [place] [phone] Business (1) Additional Instructions: Take the pain [...] (03/02/2019), Cholecystectomy, Hernia repair, Hysterectomy. Medications Inpatient [place] 5/325 Tab, 1 tab(s), Oral, Once Home albuterol HFA 90 mcg/inh MDI, 2 pu (more content not included)... [facility] Comment on above: Result Comment: Elec [...] safe for you. General instructions ? Take tkfg-dwi-hafzvle and prescription medicines only as told by [...] it gets (more content not included)... [facility] ED Patient Summaryon 023 ED Patient Summary (Inserted Image. Kristin ble to display) [address] [address] Patient Discharge Instructions Person Information Name: CONSTANTINO CARDOSO Age: 52 Years Arrival Date: 02/19/2023 00:48:45 Discharge Diagnosis: Right wrist sprain Primary Care Physician: JUDI YOUSSEF CNP Provider Information Primary Provider: Zabrina Patton DO Advanced Dioramist:None The exam and treatment you received in the Emergency Department were for an urgent problem and are not intended as complete care. It is important that you follow up with a doctor, nurse practitioner, or physician?s electrician assistant for ongoing care. If your symptoms [...] With: Address: When: JUDI YOUSSEF [address] [facility] [place] [phone] Business (1) In 3 days 02/22/2023 Comments: [...] opioids can be used to help relieve hnpvmxyx-mc-mgohpw pain and are often prescribed following a [...] the ris (more content not included)... [facility] XR Elbow 3+ Views Righton XR [...] mGy = na DAP = na [facility] XR Wrist 3+ Views Righton XR [...] mGy = na DAP = na [facility] Activated partial thrombopla stin time (aPTT) in platelet poor plasma by coagulation aOrdered By: Conner Griffith on 02-15-2023 aPTT Coag (PPP) [Time] 37.0 s 25.1-36.5 [facility] Alanine aminotransferase [En zymatic activity/volume] in Serum or PlasmaOrdered By: Conner Griffith on 02-15-2023 ALT [Catalytic activity/Vol] 13 U/L 7-52 [facility] Albumin [Mass/volume] in Ser um or Plasma by Bromocresol green (BCG) dye binding methoOrdered By: Conner Griffith on 02-15-2023 Albumin BCG dye [Mass/Vol] 4.3 g/dL 3.5-5.7 [facility] Alkaline phosphatase [Enzyma tic activity/volume] in Serum or PlasmaOrdered By: Conner Griffith on 02-15-2023 ALP [Catalytic activity/Vol] 124 U/L 34-104 [facility] Aspartate aminotransferase [ Enzymatic activity/volume] in Serum or PlasmaOrdered By: Conner Griffith on 02-15-2023 AST [Catalytic activity/Vol] 15 U/L 13-39 [facility] Basic Metabolic Panelon 02-03 Anion gap [Moles/Vol] 12.6 mmol/L Normal 6.0-15.0 [facility] Comment on above: Performed By: #### H EPATIC, CBC, BMP, LIPASE #### [facility] [address] Calcium [Mass/Vol] 9.3 mg/dL Normal 8.6-10.3 [facility] Comment on above: Performed By: #### H EPATIC, CBC, BMP, LIPASE #### [facility] [address] [place] [address] [place] Chloride [Moles/Vol] 106 mmol/L Normal 98-107 [facility] Comment on above: Performed By: #### H EPATIC, CBC, BMP, LIPASE #### [facility] [address] CO2 [Moles/Vol] 25.3 mmol/L Normal 21.0-31.0 [facility] Comment on above: Performed By: #### H EPATIC, CBC, BMP, LIPASE #### [facility] [address] Creatinine [Mass/Vol] 0.77 mg/dL Normal 0.60-1.20 [facility] Comment on above: Performed By: #### H EPATIC, CBC, BMP, LIPASE #### [address] Creatinine Clr Calc Pharmacy 98.01 [facility] Comment on above: Performed By: #### H EPATIC, CBC, BMP, LIPASE #### [place] [address] [place] GFR/1.73 sq M.predicted MDRD (S/P/Bld) [Vol rate/Area] mL/min/{1.73_m2} [facility] Comment on above: Performed By: #### H EPATIC, CBC, BMP, LIPASE #### [address] Glucose [Mass/Vol] 94 mg/dL Normal 70-100 [facility] Comment on above: Result Comment: [place] Glucose Reference Range is dependent on time and content of last meal. Glucose of more than 200 mg/dL in a nonstressed, ambulatory subject supports the diagnosis of Diabetes Mellitus. ADA recommended reference range Performed By: #### H EPATIC, CBC, BMP, LIPASE #### [facility] [address] Potassium [Moles/Vol] 3.9 mmol/L Normal 3.5-5.1 [facility] Comment on above: Performed By: #### H EPATIC, CBC, BMP, LIPASE #### [place] [address] [place] Sodium [Moles/Vol] 140 mmol/L Normal 136-145 [facility] Comment on above: Performed By: #### H EPATIC, CBC, BMP, LIPASE #### [facility] [address] Urea nitrogen [Mass/Vol] 14 mg/dL Normal 7-25 [facility] Comment on above: Performed By: #### H EPATIC, CBC, BMP, LIPASE #### [facility] [address] [place] [address] Basophils Auto (Bld) [#/Vol] Ordered By: Conner Griffith on 02-15-2023 Basophils (Bld) [#/Vol] 0.0 10*3/uL 0.0-0.2 [facility] Basophils/100 WBC Auto (Bld) Ordered By: Conner Griffith on 02-15-2023 Basophils/100 WBC (Bld) 0.6 % . [facility] Bilirubin.direct [Mass/volum e] in Serum or PlasmaOrdered By: Conner Griffith on 02-15-2023 Bilirubin.direct [Mass/Vol] 0.00 mg/dL 0.03-0.18 [facility] Comment on above: If the DBIL is less than 0.1, IBIL is not able to becalculated. Bilirubin.total [Mass/volume ] in Serum or PlasmaOrdered By: Conner Griffith on 02-15-2023 Bilirubin [Mass/Vol] 0.4 mg/dL 0.3-1.[address] [facility] [address] abdomen pelvis w conon CT abdomen pelvis w con [facility] [place] [address] [place] [address] CT Scan Report Signed Patient: Constantino Cardoso MR#: [id number] : 1970 Acct:[id number] Age/Sex: 52 / F ADM Date: 02/15/23 Loc: ER Room: Type: [facility] ER Attending Dr: Copies to: Conner [...] Columba Domínguez M.D.02/15/2023 9:56 AM Dictation Location: [place] [address] Transcribed By: [facility] 02/15/23 0956 Dictated By: Columba Domínguez MD 02/15/23 0943 Signed By: 02/15/23 0956 [facility] Calcium [Mass/volume] in Ser um or PlasmaOrdered By: Conner Griffith on 02-15-2023 Calcium [Mass/Vol] 9.3 mg/dL 8.6-10.3 [facility] Carbon dioxide, total [Moles /volume] in Serum or PlasmaOrdered By: Conner Griffith on 02-15-2023 CO2 [Moles/Vol] 25.3 mmol/L 21.0-31.0 [facility] Chloride [Moles/volume] in S cristine or PlasmaOrdered By: Conner Griffith on 02-15-2023 Chloride [Moles/Vol] 106 mmol/L 98-107 [facility] Complete Blood Count Auto Di ffon 02-15-2023 Basophils (Bld) [#/Vol] 0.0 10*3/uL Normal 0.0-0.2 [facility] Comment on above: Result Comment: PERF ORMED BY: [place] [address] PATHOLOGIST LO[employer]ING [employer] UNLOADING SUPERVISOR ROOSEVELT KEYES M.D. Performed By: #### P ORS #### [address] Basophils/100 WBC (Bld) 0.6 % Normal . [facility] Comment on above: Performed By: #### P ORS #### [address] Eosinophils (Bld) [#/Vol] 0.2 10*3/uL Normal 0.0-0.45 [facility] Comment on above: Performed By: #### P ORS #### [address] Eosinophils/100 WBC (Bld) 4.0 % Normal . [facility] Comment on above: Performed By: #### P ORS #### [address] Erythrocyte distribution width (RBC) [Ratio] 13.5 % Normal 11.9-15.3 [facility] Comment on above: Performed By: #### P ORS #### [address] Hematocrit (Bld) [Volume fraction] 38.4 % Normal 34.0-46.4 [facility] Comment on above: Performed By: #### P ORS #### [address] Hemoglobin (Bld) [Mass/Vol] 13.0 g/dL Normal 11.8-15.4 [facility] Comment on above: Performed By: #### P ORS #### [facility] [address] Lymphocytes (Bld) [#/Vol] 1.8 10*3/uL Normal 1.00-4.8 [facility] Comment on above: Performed By: #### P ORS #### [address] Lymphocytes/100 WBC (Bld) 33.8 % Normal . [facility] Comment on above: Performed By: #### P ORS #### [address] MCH (RBC) [Entitic mass] 29.4 pg Normal 24.7-34.3 [facility] Comment on above: Performed By: #### P ORS #### [address] MCV (RBC) [Entitic vol] 86.8 fL Normal 80-100 [facility] Comment on above: Performed By: #### P ORS #### [address] Mean Corpuscular HGB Conc 33.8 g/dL Normal 32.0-35.0 [facility] Comment on above: Performed By: #### P ORS #### [address] Monocytes (Bld) [#/Vol] 0.3 10*3/uL Normal 0.0-0.8 [facility] Comment on above: Performed By: #### P ORS #### [address] Monocytes/100 WBC (Bld) 18.21 % Normal 0.00-20.00 [facility] Comment on above: Performed By: #### P ORS #### [address] Monocytes/100 WBC (Bld) 4.8 % Normal . [facility] Comment on above: Performed By: #### P ORS #### [address] Neutrophils (Bld) [#/Vol] 3.0 10*3/uL Normal 1.8-7.7 [facility] Comment on above: Performed By: #### P ORS #### [address] Neutrophils/100 WBC (Bld) 56.8 % Normal . [facility] Comment on above: Performed By: #### P ORS #### [address] NRBC% 0.2 /100{WBC} Normal 0-0.5 [facility] Comment on above: Performed By: #### P ORS #### [address] Platelet mean volume (Bld) [Entitic vol] 7.3 fL Normal 6.3-10.7 [facility] Comment on above: Performed By: #### P ORS #### [address] Platelets (Bld) [#/Vol] 385 10*3/uL Normal 150-450 [facility] Comment on above: Performed By: #### P ORS #### [address] RBC (Bld) [#/Vol] 4.43 10*6/uL Normal 3.60-5.00 [facility] Comment on above: Performed By: #### P ORS #### [address] WBC (Bld) [#/Vol] 5.2 10*3/uL Normal 3.8-11.6 [facility] Comment on above: Performed By: #### P ORS #### [address] Creatinine [Mass/volume] in Serum or PlasmaOrdered By: Conner Griffith on 02-15-2023 Creatinine [Mass/Vol] 0.77 mg/dL 0.60-1.20 [facility] Eosinophils Auto (Bld) [#/Vo l]Ordered By: Conner Griffith on 02-15-2023 Eosinophils (Bld) [#/Vol] 0.2 10*3/uL 0.0-0.45 [facility] Eosinophils/100 WBC Auto (Bl d)Ordered By: Conner Griffith on 02-15-2023 Eosinophils/100 WBC (Bld) 4.0 % . [facility] Erythrocyte distribution wid th Auto (RBC) [Ratio]Ordered By: Conner Griffith on 02-15-2023 Erythrocyte distribution width (RBC) [Ratio] 13.5 % 11.9-15.3 [facility] Globulin Calc (S) [Mass/Vol] Ordered By: Conner Griffith on 02-15-2023 Globulin (S) [Mass/Vol] 3.0 g/dL [facility] Glucose [Mass/volume] in Ser um or PlasmaOrdered By: Conner Griffith on 02-15-2023 Glucose [Mass/Vol] 94 mg/dL 70-100 [facility] Comment on above: ADA recommended refe rence rangeRandom Glucose Reference Range is dependent on time and content of last meal. Glucose of more than 200 mg/dL in a nonstressed, ambulatory subject supports the diagnosis of Diabetes Mellitus. Hematocrit Auto (Bld) [Volum e fraction]Ordered By: Conner Griffith on 02-15-2023 Hematocrit (Bld) [Volume fraction] 38.4 % 34.0-46.4 [facility] Hemoglobin [Mass/volume] in BloodOrdered By: Conner Griffith on 02-15-2023 Hemoglobin (Bld) [Mass/Vol] 13.0 g/dL 11.8-15.4 [facility] Hepatic Panelon 02-15-2023 Albumin [Mass/Vol] 4.3 g/dL Normal 3.5-5.7 [facility] Comment on above: Performed By: #### P ORS #### [facility] [address] [place] [address] [facility] Albumin/Globulin [Mass ratio] 1.4 {ratio} Normal [facility] Comment on above: Performed By: #### P ORS #### [facility] [address] [place] [address] ALP [Catalytic activity/Vol] 124 U/L High 34-104 [facility] Comment on above: Performed By: #### P ORS #### [address] ALT [Catalytic activity/Vol] 13 U/L Normal 7-52 [facility] Comment on above: Performed By: #### P ORS #### [address] AST [Catalytic activity/Vol] 15 U/L Normal 13-39 [facility] Comment on above: Performed By: #### P ORS #### [address] Bilirubin [Mass/Vol] 0.4 mg/dL Normal 0.3-1.0 [facility] Comment on above: Performed By: #### P ORS #### [address] Bilirubin,Indirect 0.4 mg/dL Normal [facility] Comment on above: Performed By: #### P ORS #### [address] Bilirubin.indirect [Mass/Vol] 0.00 mg/dL Low 0.03-0.18 [facility] Comment on above: Result Comment: If t he DBIL is less than 0.1, IBIL is not able to be calculated. Performed By: #### P ORS #### [address] Globulin (S) [Mass/Vol] 3.0 g/dL Normal [facility] Comment on above: Performed By: #### P ORS #### [address] Protein [Mass/Vol] 7.3 g/dL Normal 6.4-8.9 [facility] Comment on above: Performed By: #### P ORS #### [address] Laboratory - CoagulationOrde red By: Conner Griffith on 02-15-2023 PT Coag (PPP) [Time] 11.7 s 9.0-12.9 [facility] Leukocytes [#/volume] correc jun for nucleated erythrocytes in Blood by Automated counOrdered By: Conner Griffith on 02-15-2023 WBC corrected for nucl RBC Auto (Bld) [#/Vol] 5.2 10*3/uL 3.8-11.6 [facility] Lipaseon 02-15-2023 Lipase [Catalytic activity/Vol] 19.0 U/L Normal 11.0-82.0 [facility] Comment on above: Result Comment: PERF ORMED BY: [place] [address] PATHOLOGIST [employer]ING [employer]LOADING SUPERVISOR ROOSEVELT KEYES M.D. Performed By: #### H EPATIC, CBC, BMP, LIPASE #### [address] Lipase [Enzymatic activity/v olume] in Serum or PlasmaOrdered By: Conner Griffith on 02-15-2023 Lipase [Catalytic activity/Vol] 19.0 U/L 11.0-82.0 [facility] Lymphocytes Auto (Bld) [#/Vo l]Ordered By: Conner Griffith on 02-15-2023 Lymphocytes (Bld) [#/Vol] 1.8 10*3/uL 1.00-4.8 [facility] Lymphocytes/100 WBC Auto (Bl d)Ordered By: Conner Griffith on 02-15-2023 Lymphocytes/100 WBC (Bld) 33.8 % . [facility] MCH Auto (RBC) [Entitic mass ]Ordered By: Conner Griffith on 02-15-2023 MCH (RBC) [Entitic mass] 29.4 pg 24.7-34.3 [facility] MCHC Auto (RBC) [Mass/Vol]Or dered By: Conner Griffith on 02-15-2023 MCHC (RBC) [Mass/Vol] 33.8 g/dL 32.0-35.0 [facility] MCV Auto (RBC) [Entitic vol] Ordered By: Conner Griffith on 02-15-2023 MCV (RBC) [Entitic vol] 86.8 fL 80-100 [facility] Monocyte distribution width [Entitic volume] in Blood by AutomatedOrdered By: Conner Griffith on 02-15-2023 Monocyte distribution width Auto (Bld) [Entitic vol] 18.21 % 0.00-20.00 [facility] Monocytes Auto (Bld) [#/Vol] Ordered By: Conner Griffith on 02-15-2023 Monocytes (Bld) [#/Vol] 0.3 10*3/uL 0.0-0.8 [facility] Monocytes/100 WBC Auto (Bld) Ordered By: Conner Griffith on 02-15-2023 Monocytes/100 WBC (Bld) 4.8 % . [facility] Neutrophils Auto (Bld) [#/Vo l]Ordered By: Conner Griffith on 02-15-2023 Neutrophils (Bld) [#/Vol] 3.0 10*3/uL 1.8-7.7 [facility] Neutrophils/100 WBC Auto (Bl d)Ordered By: Conner Griffith on 02-15-2023 Neutrophils/100 WBC (Bld) 56.8 % . [facility] No Panel InformationOrdered By: oCnner Griffith on 02-15-2023 Estimated GFR (CKD-EPI) > 60.0 mL/Min [facility] Creatinine Clearance (Chem 98.01 [facility] Nucleated erythrocytes [Pres ence] in Blood by Automated countOrdered By: Conner Griffith on 02-15-2023 Nucleated RBC Auto Ql (Bld) 0.2 /100{WBC} 0-0.5 [facility] Partial Thromboplastin Timeo n 02-15-2023 aPTT Coag (Bld) [Time] 37.0 s High 25.1-36.5 [facility] Comment on above: Result Comment: PERF ORMED BY: [place] [address] PATHOLOGIST [employer]ING [employer]LOADING SUPERVISOR ROOSEVELT KEYES M.D. Performed By: #### P ORS #### [address] Platelet mean volume Auto (B ld) [Entitic vol]Ordered By: Conner Griffith on 02-15-2023 Platelet mean volume (Bld) [Entitic vol] 7.3 fL 6.3-10.7 [facility] Platelet poor plasma interna tional normalized ratio (INR) by coagulation assay (relatOrdered By: Conner Griffith on 02-15-2023 INR Coag (PPP) [Relative time] 1.0 {INR} [facility] Comment on above: INR Therapeutic Rang [...] 02-15-2023 Platelets (Bld) [#/Vol] 385 10*3/uL 150-450 [facility] Potassium [Moles/volume] in Serum or PlasmaOrdered By: Conner Griffith on 02-15-2023 Potassium [Moles/Vol] 3.9 mmol/L 3.5-5.1 [facility] Protein [Mass/volume] in Ser um or PlasmaOrdered By: Conner Griffith on 02-15-2023 Protein [Mass/Vol] 7.3 g/dL 6.4-8.9 [facility] Prothrombin Time INRon 02-15 INR Coag (PPP) [Relative time] 1.0 {INR} Normal [facility] Comment on above: Result Comment: INR [...] 4.5 Performed By: #### P ORS #### [address] PT Coag (PPP) [Time] 11.7 s Normal 9.0-12.9 [facility] Comment on above: Performed By: #### P ORS #### [facility] [address] RBC Auto (Bld) [#/Vol]Ordere d By: Conner Griffith on 02-15-2023 RBC (Bld) [#/Vol] 4.43 10*6/uL 3.60-5.00 [facility] Serum or plasma albumin/glob ulin mass ratioOrdered By: Conner Griffith on 02-15-2023 Albumin/Globulin [Mass ratio] 1.4 {ratio} [facility] Serum or plasma anion gap de terminationOrdered By: Conner Griffith on 02-15-2023 Anion gap [Moles/Vol] 12.6 mmol/L 6.0-15.0 [facility] Serum or plasma non-glucuron idated bilirubin measurement (mass/volume)Ordered By: Conner Griffith on 02-15-2023 Bilirubin.indirect [Mass/Vol] 0.4 mg/dL [facility] Sodium [Moles/volume] in Ser um or PlasmaOrdered By: Conner Griffith on 02-15-2023 Sodium [Moles/Vol] 140 mmol/L 136-145 [facility] Urea nitrogen [Mass/volume] in Serum or PlasmaOrdered By: Conner Griffith on 02-15-2023 Urea nitrogen [Mass/Vol] 14 mg/dL 7-25 [facility] WBC Auto (Bld) [#/Vol]Ordere d By: Conner Griffith on 02-15-2023 WBC (Bld) [#/Vol] 5.2 10*3/uL 3.8-11.6 [facility] MG MAMM SCREEN 3D MACARIO CADon 11-30-2022 MG MAMM SCREEN 3D MACARIO CAD Normal [facility] ER URINE PROFILEon 3 Bilirubin Ql (U) Negative Normal NEGATIVE [facility] Comment on above: Performed By: #### E RUR ####[facility] [address] [place] [address]Dr. Tadeo Smyth Clarity (U) CLEAR Normal CLEAR [facility] Comment on above: Performed By: #### E RUR ####[facility] [address] [place], [place] [address]Dr. Tadeo Smyth Color (U) YELLOW Normal YELLOW [facility] Comment on above: Performed By: #### E RUR ####[facility] [address] [place], [place] [address]Dr. Tadeo Smyth ERUAHD A micrscopic examina tion will be performed if indicated. Normal [facility] Comment on above: Performed By: #### E RUR ####[facility] [address] [place], [place] [address]Dr. Tadeo Smyth Glucose Ql (U) Negative Normal NEGATIVE [facility] Comment on above: Performed By: #### E RUR ####[facility] [address] [place], [place] [address]Dr. Tadeo Smyth Hemoglobin Ql (U) TRACE-INTACT Abnormal NEGATIVE [facility] Comment on above: Performed By: #### E RUR ####[facility] [address] [place], [place] [address]Dr. Tadeo Smyth Ketones Ql (U) Negative Normal NEGATIVE [facility] Comment on above: Performed By: #### E RUR ####[facility] [address] [place], [place] [address]Dr. Tadeo Smyth LEUKOCYTES Negative Normal NEGATIVE [facility] Comment on above: Performed By: #### E RUR ####[facility] [address] [place], [place] [address]Dr. Tadeo Smyth Nitrite Ql (U) Negative Normal NEGATIVE [facility] Comment on above: Performed By: #### E RUR ####[facility] [address] [place], [place] [address]Dr. Tadeo Smyth pH (U) 6.0 [pH] Normal 5-[address] [facility] Comment on above: Performed By: #### E RUR ####[facility] [address] [place], [place] [address]Dr. Tadeo Smyth SPEC GRAVITY >=1.030 Abnormal 1.005-<=1.0 25 [facility] Comment on above: Performed By: #### E RUR ####[facility] [address] [place] [address]Dr. Tadeo Smyth UA PROTEIN Negative Normal NEGATIVE/ TRACE [facility] Comment on above: Performed By: #### E RUR ####[facility] [address] [place] [address]Dr. Tadeo Smyth UR MICRO IND NOT INDICATED Normal [facility] Comment on above: Performed By: #### E RUR ####[facility] [address] [place], [place] [address]Dr. Tadeo Smyth Urobilinogen Qn (U) 0.2 {Benito'U}/dL Normal 0.2 - 1. [address] [facility] Comment on above: Performed By: #### E RUR ####[facility] [address] [place], [place] [address]Dr. Tadeo Smyth XR ABD FLAT UP_PA Kasey 11-28 XR ABD FLAT UP_PA CH Normal [facility] AMYLASEon 11-27-2022 Amylase [Catalytic activity/Vol] 63 U/L Normal 25-[address] [facility] Comment on above: Performed By: #### L IPA, VIJI, CMP ####[facility] [address] [place], [place] [address]Dr. Tadeo Smyth CBC AUTO DIFFon 11-27-2022 BASO # 0.0 103/ul Normal 0.0-0.[address] [facility] Comment on above: Performed By: #### C BC ####[facility] [address] [place], [place] [address]Dr. Tadeo Smyth Basophils/100 WBC (Bld) 0.4 % Normal 0.2-2.[address] [facility] Comment on above: Performed By: #### C BC ####[facility] [address] [place], [place] [address]Dr. Tadeo Smyth EO # 0.2 103/ul Normal 0.0-0.[address] [facility] Comment on above: Performed By: #### C BC ####[facility] [address]tt[address] [place], [place] [address]Dr. Tadeo Smyth Eosinophils/100 WBC (Bld) 2.8 % Normal 0.9-7.[address] [facility] Comment on above: Performed By: #### C BC ####[facility] [address] [place] [address]Dr. Tadeo Smyth Erythrocyte distribution width (RBC) [Ratio] 13.2 % Normal 11.0-15.[address] [facility] Comment on above: Performed By: #### C BC ####[facility] [address] [place], [place] [address]Dr. Tadeo Smyth Hematocrit (Bld) [Volume fraction] 42.6 % Normal 36.0-48.[address] [facility] Comment on above: Performed By: #### C BC ####[facility] [address] [place], [place] [address]Dr. Tadeo Smyth Hemoglobin (Bld) [Mass/Vol] 13.6 g/dL Normal 12.0-16.[address] [facility] Comment on above: Performed By: #### C BC ####[facility] [address] [place], [place] [address]Dr. Tadeo Smyth IG # 0.02 10e3/ul Normal 0.00-0.[address] [facility] Comment on above: Performed By: #### C BC ####[facility] X[address]uc[address] [place], [place] [address]Dr. Tadeo Smyth IG % 0.3 % Normal 0.0-0.[address] [facility] Comment on above: Performed By: #### C BC ####[facility] [address] [place], [place] [address]Dr. Tadeo Smyth LYMPH # 2.2 103/ul Normal 1.2-3.[address] [facility] Comment on above: Performed By: #### C BC ####[facility] [address] [place], [place] [address]Dr. Tadeo Smyth Lymphocytes/100 WBC (Bld) 32.1 % Normal 20.5-60.[address] [facility] Comment on above: Performed By: #### C BC ####[facility] [address] [place] [address]Dr. Margotnicole Smyth MANUAL DIFF REQ NO Normal [facility] Comment on above: Performed By: #### C BC ####[facility] [address] [place] [address]Dr. Tadeo Haja MCH (RBC) [Entitic mass] 29.6 pg Normal 26.7-34.[address] [facility] Comment on above: Performed By: #### C BC ####[facility] [address] [place], [place] [address]Dr. Tadeo Haja MCHC (RBC) [Mass/Vol] 31.9 g/dL Normal 29.9-35.[address] [facility] Comment on above: Performed By: #### C BC ####[facility] [address] [place], [place] [address]Dr. Tadeo Smyth MCV (RBC) [Entitic vol] 92.6 fL Normal 81.0-99.[address] [facility] Comment on above: Performed By: #### C BC ####[facility] [address] [place], [place] [address]Dr. Tadeo Smyth MONO # 0.2 103/ul Critically low 0.3-0.[address] [facility] Comment on above: Performed By: #### C BC ####[facility] [address] [place], [place] [address]Dr. Tadeo Smyth Monocytes/100 WBC (Bld) 3.2 % Normal 1.7-12.[address] [facility] Comment on above: Performed By: #### C BC ####[facility] [address] [place], [place] [address]Dr. Tadeo Smyth NEUT # 4.2 103/ul Normal 1.4-6.[address] [facility] Comment on above: Performed By: #### C BC ####[facility] [address] [place], [place] [address]Dr. Tadeo Smyth Neutrophils/100 WBC (Bld) 61.2 % Normal 43.0-75.[address] [facility] Comment on above: Performed By: #### C BC ####[facility] [address]fs[address] [place], [place] [address]Dr. Tadeo Smyth Platelet mean volume (Bld) [Entitic vol] 9.0 fL Critically low 9.5-13.[address] [facility] Comment on above: Performed By: #### C BC ####[facility] [address] [place] [address]Dr. Tadeo Smyth PLT 392 103/ul Normal 150-[address] [facility] Comment on above: Performed By: #### C BC ####[facility] X[address]rekj[address] [place] [address]Dr. Tadeo Smyth RBC 4.60 106/ul Normal 4.20-5.[address] [facility] Comment on above: Performed By: #### C BC ####[facility] [address] [place] [address]Dr. Tadeo Smyth WBC 6.9 103/ul Normal 4.0-11.[address] [facility] Comment on above: Performed By: #### C BC ####[facility] [address]ms[address] [place] [address]Dr. Tadeo Haja LIPASEon 11-27-2022 Lipase [Catalytic activity/Vol] 100.0 U/L Normal 73.0-393.[address] [facility] Comment on above: Performed By: #### L VIJI HALL, CMP ####[facility] [address]cxvr[address] [place] [address]Dr. Tadeo Smyth PROF 14(COMP METB)on 023 Albumin [Mass/Vol] 3.5 g/dL Normal 3.4-5.[address] [facility] Comment on above: Performed By: #### L VIJI HALL, CMP ####[facility] [address]cs[address] [place] [address]Dr. Margotnicole Smyth Albumin/Globulin [Mass ratio] 0.9 {ratio} Normal [facility] Comment on above: Performed By: #### L VIJI HALL, CMP ####[facility] [address] [place] [address]Dr. Tadeo Smyth ALP [Catalytic activity/Vol] 166 U/L Critically high 46-[address] [facility] Comment on above: Performed By: #### L ISABEL VIJI, CMP ####[facility] [address] [place] [address]Dr. Tadeo Smyth ALT [Catalytic activity/Vol] 25 U/L Normal 14-59 [facility] Comment on above: Performed By: #### L IPA, VIJI, CMP ####[facility] [address] [place] [address]Dr. Tadeo Smyth Anion gap [Moles/Vol] 12.4 mmol/L Normal [facility] Comment on above: Performed By: #### L IPA, VIJI, CMP ####[facility] [address] [place] [address]Dr. Tadeo Smyth AST [Catalytic activity/Vol] 18 U/L Normal 15-37 [facility] Comment on above: Performed By: #### L IPA VIJI, CMP ####[facility] [address] [place], [place] [address]Dr. Tadeo Smyth Bilirubin [Mass/Vol] 0.3 mg/dL Normal 0.2-1.0 [facility] Comment on above: Performed By: #### L IPA VIJI, CMP ####[facility] [facility] [address] [place], [place] [address]Dr. Tadeo Smyth Calcium [Mass/Vol] 9.1 mg/dL Normal 8.5-10.1 [facility] Comment on above: Performed By: #### L IPA VIJI, CMP ####[facility] [address]nqazoi[address] [place], [place] [address]Dr. Tadeo Smyth Chloride [Moles/Vol] 104 mmol/L Normal 98-[address] [facility] Comment on above: Performed By: #### L IPA VIJI, CMP ####[facility] Dnlammdjdr47[address] [place], [place] [address]Dr. Tadeo Smyth CO2 [Moles/Vol] 25.0 mmol/L Normal 21.0-32.0 [facility] Comment on above: Performed By: #### L IPA, VIJI, CMP ####[facility] [address]ccqwqwj[address] [place], [place] [address]Dr. Tadeo Smyth Creatinine [Mass/Vol] 0.87 mg/dL Normal 0.55-1.02 [facility] Comment on above: Performed By: #### L VIJI HALL, CMP ####[facility] [address] [place] [address]Dr. Tadeo Smyth EGFR-AF BRUNEIAN >60 Normal >=60 [facility] Comment on above: Performed By: #### L ISABEL VIJI, CMP ####[facility] Kvrssxiseg[address] [place] [address]Dr. Tadeo Smyth EGFR-NON AF BRUNEIAN >60 Normal >=60 [facility] Comment on above: Performed By: #### L VIJI HALL, CMP ####[facility] Bffjttahjp99[address] [place] [address]Dr. Tadeo Smyth Globulin (S) [Mass/Vol] 3.9 g/dL Normal [facility] Comment on above: Performed By: #### L VIJI HALL, CMP ####[facility] Fmmifseelr[address] [place], [place] [address]Dr. Tadeo Smyth Glucose [Mass/Vol] 169 mg/dL Critically high 74-106 [facility] Comment on above: Performed By: #### L VIJI HALL, CMP ####[facility] Nrbeivughw[address] [place], [place] [address]Dr. Tadeo Smyth Potassium [Moles/Vol] 3.4 mmol/L Critically low 3.5-5.1 [facility] Comment on above: Performed By: #### L VIJI HALL, CMP ####[facility] [address]xiqnhp[address] [place], [place] [address]Dr. Tadeo Smyth Protein [Mass/Vol] 7.4 g/dL Normal 6.4-8.[address] [facility] Comment on above: Performed By: #### L VIJI HALL, CMP ####[facility] Yrwo[address]yfkc[address] [place], [place] [address]Dr. Tadeo Smyth Sodium [Moles/Vol] 138 mmol/L Normal 136-145 [facility] Comment on above: Performed By: #### L VIJI HALL, CMP ####[facility] Vsgrhyempq[address] [place], [place] [address]Dr. Tadeo Smyth Urea nitrogen [Mass/Vol] 23.0 mg/dL Critically high 7.0-18.0 [facility] Comment on above: Performed By: #### L VIJI HALL CMP ####[facility] Wcoprquulg76[address] [place], [place] [address]Dl. Tadeo Smyth Urea nitrogen/Creatinine [Mass ratio] 26.4 mg/mg Normal [facility] Comment on above: Performed By: #### L VIJI HALL CMP ####[facility] Ybrptvbcry3284 [place], [place] [address]Xa. Tadeo S[address] CT enterographyon 11-04-2022 CT enterography [facility] [place] [address] [place] [address] CT Scan Report Signed Patient: Constantino Cardoso MR#: [id number] : 1970 Acct:[id number] Age/Sex: 52 / F ADM Date: 11/04/22 Loc: CT Room: Type: [facility] Attending Dr: Jennie Ayon MD Copies to: [...] Bateman Jr., DNeoONeo11/04/2022 11:17 AM Dictation Location: [place] [address] Transcribed By: [facility] 11/04/22 111 Dictated By: Tiburcio Bateman Jr, DO 11/04/22 111 Signed By: 11/04/22 1117 Normal [facility] AMYLASEon 11-02-2022 Amylase [Catalytic activity/Vol] 40 U/L Normal 25-115 [facility] Comment on above: Performed By: #### L IPA, MG, CMP, VIJI ####[facility] [address]lexixnidf[address] [place] [address]Dr. Tadeo Smyth CBC AUTO DIFFon 11-02-2022 BASO # 0.0 103/ul Normal 0.0-0.1 [facility] Comment on above: Performed By: #### C BC ####[facility] Omelvbazqi64[address] [place] [address]Dr. Tadeo Smyth Basophils/100 WBC (Bld) 0.5 % Normal 0.2-2.[address] [facility] Comment on above: Performed By: #### C BC ####[facility] Ohmkbczyev0559 [place] [address]Dr. Tadeo Smyth EO # 0.1 103/ul Normal 0.0-0.[address] [facility] Comment on above: Performed By: #### C BC ####[facility] Ckfibcujrd0769 [place] [address]Dr. Tadeo Smyth Eosinophils/100 WBC (Bld) 2.8 % Normal 0.9-7.[address] [facility] Comment on above: Performed By: #### C BC ####[facility] Dmefatcona8644 [place] [address]Dr. Tadeo Smyth Erythrocyte distribution width (RBC) [Ratio] 13.3 % Normal 11.0-15.0 [facility] Comment on above: Performed By: #### C BC ####[facility] Zlqwnsvwaw7234 [place] [address]Dr. Tadeo Smyth Hematocrit (Bld) [Volume fraction] 35.6 % Critically low 36.0-48.0 [facility] Comment on above: Performed By: #### C BC ####[facility] Wkknfjieav9[address] [place], [place] [address]DrNeo Smyth Hemoglobin (Bld) [Mass/Vol] 11.3 g/dL Critically low 12.0-16.0 [facility] Comment on above: Performed By: #### C BC ####[facility] Vxymjazvmy[address] [place], [place] [address]Dr. Tadeo Smyth IG # 0.01 10e3/ul Normal 0.00-0.03 [facility] Comment on above: Performed By: #### C BC ####[facility] Voovqbebki697[address] [place], [place] [address]Dr. Tadeo Smyth IG % 0.2 % Normal 0.0-0.5 [facility] Comment on above: Performed By: #### C BC ####[facility] Onazbhupaz[address] [place], [place] [address]DrNeo Smyth LYMPH # 1.5 103/ul Normal 1.2-3.[address] [facility] Comment on above: Performed By: #### C BC ####[facility] Ohymyzzxci[address] [place], [place] [address]DrNeo Smyth Lymphocytes/100 WBC (Bld) 34.9 % Normal 20.5-60.[address] [facility] Comment on above: Performed By: #### C BC ####[facility] Kiwryinooa[address] [place], [place] [address]DrNeo Smyth MANUAL DIFF REQ NO Normal [facility] Comment on above: Performed By: #### C BC ####[facility] Gzcnaqgccs[address] [place], [place] [address]DrNeo Smyth MCH (RBC) [Entitic mass] 28.8 pg Normal 26.7-34.0 [facility] Comment on above: Performed By: #### C BC ####[facility] Xxkgsdtkfi9323 [place] [address]Dr. Tadeo Smyth MCHC (RBC) [Mass/Vol] 31.7 g/dL Normal 29.9-35.[address] [facility] Comment on above: Performed By: #### C BC ####[facility] Qlbpspvfxu9365 [place] [address]DrNeo Smyth MCV (RBC) [Entitic vol] 90.8 fL Normal 81.0-99.[address] [facility] Comment on above: Performed By: #### C BC ####[facility] Mkztvjlftg[address] [place], [place] [address]DrNeo Smyth MONO # 0.3 103/ul Normal 0.3-0.[address] [facility] Comment on above: Performed By: #### C BC ####[facility] Dykeuwixmi12[address] [place], [place] [address]DrNeo Smyth Monocytes/100 WBC (Bld) 6.9 % Normal 1.7-12.[address] [facility] Comment on above: Performed By: #### C BC ####[facility] Zmdpltbgzj22[address] [place], [place] [address]DrNeo Smyth NEUT # 2.4 103/ul Normal 1.4-6.[address] [facility] Comment on above: Performed By: #### C BC ####[facility] Zqdadnbrhf[address] [place], [place] [address]DrNeo Smyth Neutrophils/100 WBC (Bld) 54.7 % Normal 43.0-75.[address] [facility] Comment on above: Performed By: #### C BC ####[facility] Ypbmcbudlx[address] [place], [place] [address]DrNeo Smyth Platelet mean volume (Bld) [Entitic vol] 8.9 fL Critically low 9.5-13.[address] [facility] Comment on above: Performed By: #### C BC ####[facility] Gmjhyxsssm[address] [place], [place] [address]DrNeo Smyth PLT 316 103/ul Normal 150-450 [facility] Comment on above: Performed By: #### C BC ####[facility] Thewxhnisi7685 [place] [address]Dr. Tadeo Smyth RBC 3.92 106/ul Critically low 4.20-5.40 [facility] Comment on above: Performed By: #### C BC ####[facility] Yghhiorbxc2279 [place] [address]Dr. Tadeo Smyth WBC 4.4 103/ul Normal 4.0-11.0 [facility] Comment on above: Performed By: #### C BC ####[facility] Yjzlypactb7100 [place] [address]Dr. Tadeo Smyth H PYLORI ANTIBODY IGGon 10-07 H. PYLORI IGG ABS 0.12 Index Value Normal 0.00-0.79 [facility] Comment on above: Result Comment: Nega tive <0.80 Equivocal 0.80 - 0.89 Positive >0.89 Performed By: #### H PYLLC ####[facility] Lcjlxwoktz[address] [place], [place] [address]Dr. Tadeo Smyth LIPASEon 11-02-2022 Lipase [Catalytic activity/Vol] 58.0 U/L Critically low 73.0-393.0 [facility] Comment on above: Performed By: #### L IPA, MG, CMP, VIJI ####[facility] [address]koevrjw[address] [place], [place] [address]Dr. Tadeo Smyth MAGNESIUMon 11-02-2022 Magnesium [Mass/Vol] 1.8 mg/dL Normal 1.8-2.4 [facility] Comment on above: Performed By: #### L IPA, MG, CMP, VIJI ####[facility] Peyrtxddcc[address] [place], [place] [address]DrNeo Tadeo Smyth PROF 14(COMP METB)on 023 Albumin [Mass/Vol] 3.2 g/dL Critically low 3.4-5.0 [facility] Comment on above: Performed By: #### L IPA, MG, CMP, VIJI ####[facility] Vxgsctjbve6735 [place] [address]Dr. Tadeo Smyth Albumin/Globulin [Mass ratio] 1.0 {ratio} Normal [facility] Comment on above: Performed By: #### L IPA, MG, CMP, VIJI ####[facility] Apgyenysgx4618 [place] [address]Dr. Tadeo Smyth ALP [Catalytic activity/Vol] 138 U/L Critically high 46-[address] [facility] Comment on above: Performed By: #### L IPA, MG, CMP, VIJI ####[facility] Byvrmeuwoh[address] [place], [place] [address]Dr. Tadeo Smyth ALT [Catalytic activity/Vol] 22 U/L Normal 14-59 [facility] Comment on above: Performed By: #### L IPA, MG, CMP, VIJI ####[facility] Otqhgkdgpl142[address] [place], [place] [address]Dr. Tadeo Smyth Anion gap [Moles/Vol] 10.0 mmol/L Normal [facility] Comment on above: Performed By: #### L IPA, MG, CMP, VIJI ####[facility] Aonnraavbs8[address] [place], [place] [address]Dr. Tadeo Smyth AST [Catalytic activity/Vol] 18 U/L Normal 15-37 [facility] Comment on above: Performed By: #### L IPA, MG, CMP, VIJI ####[facility] Huhgdcxlhu[address] [place], [place] [address]Dr. Tadeo Smyth Bilirubin [Mass/Vol] 0.5 mg/dL Normal 0.2-1.0 [facility] Comment on above: Performed By: #### L IPA, MG, CMP, VIJI ####[facility] Hkawhigcpp[address] [place], [place] [address]Dr. Tadeo Smyth Calcium [Mass/Vol] 8.9 mg/dL Normal 8.5-10.1 [facility] Comment on above: Performed By: #### L IPA, MG, CMP, VIJI ####[facility] Isbudfdtie[address] [place], [place] [address]Dr. Tadeo Smyth Chloride [Moles/Vol] 107 mmol/L Normal 98-[address] [facility] Comment on above: Performed By: #### L IPA, MG, CMP, VIJI ####[facility] Kvzkbwkmhi2471 [place] [address]Dr. Tadeo Smyth CO2 [Moles/Vol] 28.8 mmol/L Normal 21.0-32.[address] [facility] Comment on above: Performed By: #### L IPA, MG, CMP, VIJI ####[facility] Mpgxdnxyyb3756 [place] [address]Dr. Tadeo Smyth Creatinine [Mass/Vol] 0.74 mg/dL Normal 0.55-1.[address] [facility] Comment on above: Performed By: #### L IPA, MG, CMP, VIJI ####[facility] Cxuntrcbbw[address] [place], [place] [address]Dr. Tadeo Smyth EGFR-AF BRUNEIAN >60 Normal >=[address] [facility] Comment on above: Performed By: #### L IPA, MG, CMP, VIJI ####[facility] Jhexfnxymg[address] [place], [place] [address]Dr. Tadeo Haja EGFR-NON AF BRUNEIAN >60 Normal >=[address] [facility] Comment on above: Performed By: #### L IPA, MG, CMP, VIJI ####[facility] C[address]xsbqjlu[address] [place], [place] [address]Dr. Tadeo Smyth Globulin (S) [Mass/Vol] 3.3 g/dL Normal [facility] Comment on above: Performed By: #### L IPA, MG, CMP, VIJI ####[facility] Qdfincxzwx6698 [place] [address]Dr. Margotnicole Haja Glucose [Mass/Vol] 96 mg/dL Normal 74-[address] [facility] Comment on above: Performed By: #### L IPA, MG, CMP, VIJI ####[facility] Cocuwbnksj199[address] [place], [place] [address]Dr. Margotnicole Smyth Potassium [Moles/Vol] 3.8 mmol/L Normal 3.5-5.[address] [facility] Comment on above: Performed By: #### L IPA, MG, CMP, VIJI ####[facility] [address]okjn[address] [place], [place] [address]Dr. Tadeo Smyth Protein [Mass/Vol] 6.5 g/dL Normal 6.4-8.[address] [facility] Comment on above: Performed By: #### L IPA, MG, CMP, VIJI ####[facility] Ouojtkdjkz9963 [place] [address]Dr. Margotnicole Smyth Sodium [Moles/Vol] 142 mmol/L Normal 136-[address] [facility] Comment on above: Performed By: #### L IPA, MG, CMP, VIJI ####[facility] Unokczlqvo316[address] [place], [place] [address]Dr. Margotnicole Smyth Urea nitrogen [Mass/Vol] 8.0 mg/dL Normal 7.0-18.[address] [facility] Comment on above: Performed By: #### L IPA, MG, CMP, VIJI ####[facility] Zgsvuwcunj[address] [place], [place] [address]Dr. Tadeo Smyth Urea nitrogen/Creatinine [Mass ratio] 10.8 mg/mg Normal [facility] Comment on above: Performed By: #### L IPA, MG, CMP, VIJI ####[facility] Yajeyzgkes509[address] [place], [place] [address]Dr. Tadeo Haja AMMONIAon 11-01-2022 Ammonia (P) [Moles/Vol] 18 umol/L Normal 11-[address] [facility] Comment on above: Performed By: #### A MM ####[facility] Owcgcvnnqj[address] [place], [place] [address]Dr. Margotnicole Smyth AMYLASEon 11-01-2022 Amylase [Catalytic activity/Vol] 43 U/L Normal 25-[address] [facility] Comment on above: Performed By: #### M G, VIJI, LIPA, CMP ####[facility] Avmndvuzyp[address] [place], [place] [address]Dr. Margotnicole Haja CBC AUTO DIFFon 11-01-2022 BASO # 0.0 103/ul Normal 0.0-0.1 [facility] Comment on above: Performed By: #### C BC ####[facility] Xbibbeuxln56[address] [place], [place] [address]Dr. Tadeo Smyth Basophils/100 WBC (Bld) 0.6 % Normal 0.2-2.[address] [facility] Comment on above: Performed By: #### C BC ####[facility] Xkyuaoigez6[address] [place], [place] [address]Dr. Tadeo Haja EO # 0.1 103/ul Normal 0.0-0.[address] [facility] Comment on above: Performed By: #### C BC ####[facility] Y[address]hfzvwybj8[address] [place], [place] [address]Dr. Tadeo Smyth Eosinophils/100 WBC (Bld) 1.5 % Normal 0.9-7.[address] [facility] Comment on above: Performed By: #### C BC ####[facility] Myvtwxwhug049[address] [place], [place] [address]Dr. Tadeo Smyth Erythrocyte distribution width (RBC) [Ratio] 13.5 % Normal 11.0-15.[address] [facility] Comment on above: Performed By: #### C BC ####[facility] Cyaliwsduo[address] [place], [place] [address]Dr. Tadeo Smyth Hematocrit (Bld) [Volume fraction] 37.7 % Normal 36.0-48.[address] [facility] Comment on above: Performed By: #### C BC ####[facility] Elsnackixx56[address] [place], [place] [address]Dr. Tadeo Smyth Hemoglobin (Bld) [Mass/Vol] 12.5 g/dL Normal 12.0-16.[address] [facility] Comment on above: Performed By: #### C BC ####[facility] Kasbfushnf[address] [place], [place] [address]Dr. Tadeo Smyth IG # 0.02 10e3/ul Normal 0.00-0.[address] [facility] Comment on above: Performed By: #### C BC ####[facility] F[address]dexfjyqw[address] [place], [place] [address]Dr. Tadeo Smyth IG % 0.4 % Normal 0.0-0.[address] [facility] Comment on above: Performed By: #### C BC ####[facility] Durlgtfkkm40[address] [place], [place] [address]DrNeo Smyth LYMPH # 1.3 103/ul Normal 1.2-3.[address] [facility] Comment on above: Performed By: #### C BC ####[facility] Biefcktbjz0725 [place] [address]DrNeo Smyth Lymphocytes/100 WBC (Bld) 23.9 % Normal 20.5-60.0 [facility] Comment on above: Performed By: #### C BC ####[facility] Zlgcufdbpp[address] [place], [place] [address]DrNeo Smyth MANUAL DIFF REQ NO Normal [facility] Comment on above: Performed By: #### C BC ####[facility] Xqrsblrprp5075 [place] [address]DrNeo Smyth MCH (RBC) [Entitic mass] 29.8 pg Normal 26.7-34.[address] [facility] Comment on above: Performed By: #### C BC ####[facility] Ibtfnvnkux[address] [place], [place] [address]DrNeo Smyth MCHC (RBC) [Mass/Vol] 33.2 g/dL Normal 29.9-35.[address] [facility] Comment on above: Performed By: #### C BC ####[facility] Emxuxtzcgb8[address] [place], [place] [address]DrNeo Smyth MCV (RBC) [Entitic vol] 89.8 fL Normal 81.0-99.[address] [facility] Comment on above: Performed By: #### C BC ####[facility] Iatzpvejmn175[address] [place], [place] [address]DrNeo Smyth MONO # 0.3 103/ul Normal 0.3-0.[address] [facility] Comment on above: Performed By: #### C BC ####[facility] Bicsbhkrwd037[address] [place], [place] [address]DrNeo Smyth Monocytes/100 WBC (Bld) 5.2 % Normal 1.7-12.[address] [facility] Comment on above: Performed By: #### C BC ####[facility] Ttsetdopnr758[address] [place], [place] [address]DrNeo Smyth NEUT # 3.6 103/ul Normal 1.4-6.5 [facility] Comment on above: Performed By: #### C BC ####[facility] Gpiegvawch[address] [place] [address]Dr. Tadeo Smyth Neutrophils/100 WBC (Bld) 68.4 % Normal 43.0-75.0 [facility] Comment on above: Performed By: #### C BC ####[facility] Pebfmqknkb507[address] [place], [place] [address]Dr. Tadeo Smyth Platelet mean volume (Bld) [Entitic vol] 9.0 fL Critically low 9.5-13.5 [facility] Comment on above: Performed By: #### C BC ####[facility] [address]lgciybxj[address] [place], [place] [address]Dr. Tadeo Smyth PLT 356 103/ul Normal 150-[address] [facility] Comment on above: Performed By: #### C BC ####[facility] Swsnifekoc337[address] [place], [place] [address]Dr. Tadeo Smyth RBC 4.20 106/ul Normal 4.20-5.[address] [facility] Comment on above: Performed By: #### C BC ####[facility] Ifeqrerlyi344[address] [place], [place] [address]Dr. Tadeo Smyth WBC 5.2 103/ul Normal 4.0-11.[address] [facility] Comment on above: Performed By: #### C BC ####[facility] Bbpuljjkmn[address] [place], [place] [address]Dr. Tadeo Smyth CT ABD/PELV W CONon 11-01-19 CT ABD/PELV W CON Normal [facility] CULTURE BLOODon 11-01-2022 Microscopic examination of blood, culture Culture Observations: NO GROWTH AT 5 DAYS. Isolate 1 BC_BA_NA Normal [facility] Comment on above: Performed By: #### B LDCX2 ####[facility] Q[address]ueklqvj[address] [place], [place] [address]Dr. Tadeo Smyth Performed By: #### B LDCX1 ####[facility] Odtrnngbrl[address] [place], [place] [address]Dr. Tadeo Smyth CULTURE URINEon 11-01-2022 CULTURE URINE Culture Observations : LIGHT GROWTH OF MIXED GENITAL SINTIA. NO POTENTIAL PATHOGENS SEEN. Normal [facility] Comment on above: Performed By: #### U RCX ####[facility] Irwdvzijka[address] [place], [place] [address]Dr. Tadeo Smyth Covid-19 PCR ([facility])on 10-07 SARS-CoV-2 (COVID-19) RNA CHEN+probe Ql (Unsp spec) Not detected Normal NOT DETECTED [facility] Comment on above: Result Comment: When [...] for this test is supported by the [place] of [employer] and Human Service's declaration that [...] be used). Performed By: #### C VDTBH ####[facility] Vnehfsbmhy[address] [place], [place] [address]Dr. Tadeo Smyth LACTATE/LACTIC ACIDon 2022 Lactate [Moles/Vol] 0.7 mmol/L Normal 0.4-1.[address] [facility] Comment on above: Performed By: #### L ACT ####[facility] Qfieicvbcc[address] [place], [place] [address]Dr. Tadeo Smyth LIPASEon 11-01-2022 Lipase [Catalytic activity/Vol] 58.0 U/L Critically low 73.0-393.0 [facility] Comment on above: Performed By: #### M G, VIJI, LIPA, CMP ####[facility] Vtgfyyczvd5507 [place] [address]Dr. Tadeo Smyth MAGNESIUMon 11-01-2022 Magnesium [Mass/Vol] 2.0 mg/dL Normal 1.8-2.4 [facility] Comment on above: Performed By: #### Clementina Botello, VIJI, LIPA, CMP ####[facility] Prhriymmnc0450 [place] [address]Dr. Tadeo Smyth PROF 14(COMP METB)on 023 Albumin [Mass/Vol] 3.6 g/dL Normal 3.4-5.0 [facility] Comment on above: Performed By: #### Clementina Botello, VIJI, LIPA, CMP ####[facility] Iorgcsrjlg5971 [place] [address]Dr. Tadeo Smyth Albumin/Globulin [Mass ratio] 1.0 {ratio} Normal [facility] Comment on above: Performed By: #### Clementina Botello, VIJI, LIPA, CMP ####[facility] Xcwuhwspde6836 [place] [address]Dr. Tadeo Smyth ALP [Catalytic activity/Vol] 164 U/L Critically high 46-116 [facility] Comment on above: Performed By: #### Clementina Botello, VIJI, LIPA, CMP ####[facility] Pnqmjngtbf2993 [place] [address]Dr. Tadeo Smyth ALT [Catalytic activity/Vol] 22 U/L Normal 14-59 [facility] Comment on above: Performed By: #### Clementina Botello, VIJI, LIPA, CMP ####[facility] Ncyjdufivg5916 [place] [address]Dr. Tadeo Smyth Anion gap [Moles/Vol] 11.5 mmol/L Normal [facility] Comment on above: Performed By: #### M Ayan, VIJI, LIPA, CMP ####[facility] Rtrvsxjjkt6240 [place] [address]Dr. Tadeo Smyth AST [Catalytic activity/Vol] 17 U/L Normal 15-37 [facility] Comment on above: Performed By: #### Clementina Botello, VIJI, LIPA, CMP ####[facility] Mopemnpbzl0248 [place] [address]Dr. Tadeo Smyth Bilirubin [Mass/Vol] 0.4 mg/dL Normal 0.2-1.[address] [facility] Comment on above: Performed By: #### M G, VIJI, LIPA, CMP ####[facility] Gipcumebpa[address] [place], [place] [address]Dr. Tadeo Smyth Calcium [Mass/Vol] 9.1 mg/dL Normal 8.5-10.[address] [facility] Comment on above: Performed By: #### M G, VIJI, LIPA, CMP ####[facility] Yqsprwljdu[address] [place], [place] [address]Dr. Tadeo Smyth Chloride [Moles/Vol] 105 mmol/L Normal 98-[address] [facility] Comment on above: Performed By: #### M G, VIJI, LIPA, CMP ####[facility] Zapxizgvro[address] [place], [place] [address]Dr. Tadeo Smyth CO2 [Moles/Vol] 27.6 mmol/L Normal 21.0-32.[address] [facility] Comment on above: Performed By: #### M G, VIJI, LIPA, CMP ####[facility] [address]zvbtien[address] [place], [place] [address]Dr. Tadeo Smyth Creatinine [Mass/Vol] 0.72 mg/dL Normal 0.55-1.[address] [facility] Comment on above: Performed By: #### M G, VIJI, LIPA, CMP ####[facility] [address]kzptp[address] [place], [place] [address]Dr. Tadeo Smyth EGFR-AF BRUNEIAN >60 Normal >=[address] [facility] Comment on above: Performed By: #### M G, VIJI, LIPA, CMP ####[facility] Ykvjgoybol[address] [place], [place] [address]Dr. Tadeo Smyth EGFR-NON AF BRUNEIAN >60 Normal >=[address] [facility] Comment on above: Performed By: #### M G, VIJI, LIPA, CMP ####[facility] [address]afifgx[address] [place], [place] [address]Dr. Tadeo Smyth Globulin (S) [Mass/Vol] 3.6 g/dL Normal [facility] Comment on above: Performed By: #### M Ayan, VIJI, LIPA, CMP ####[facility] [id number] [place] [address]Dr. Tadeo Smyth Glucose [Mass/Vol] 100 mg/dL Normal 74-[address] [facility] Comment on above: Performed By: #### M G, VIJI, LIPA, CMP ####[facility] [id number] [place] [address]Dr. Tadeo Smyth Potassium [Moles/Vol] 4.1 mmol/L Normal 3.5-5.[address] [facility] Comment on above: Performed By: #### M Ayan, VIJI, LIPA, CMP ####[facility] [id number] [place], [place] [address]Dr. Tadeo Smyth Protein [Mass/Vol] 7.2 g/dL Normal 6.4-8.[address] [facility] Comment on above: Performed By: #### M VIJI Botello LIPA, CMP ####St. [facility] [address]ttce[address] [place] [address]Dr. Tadeo Smyth Sodium [Moles/Vol] 140 mmol/L Normal 136-[address] [facility] Comment on above: Performed By: #### M Ayan, VIJI, LIPA, CMP ####[facility] [address] [place] [address]Dr. Tadeo Smyth Urea nitrogen [Mass/Vol] 15.0 mg/dL Normal 7.0-18.[address] [facility] Comment on above: Performed By: #### M Ayan, VIJI, LIPA, CMP ####[facility] [address] [place] [address]Dr. Tadeo Smyth Urea nitrogen/Creatinine [Mass ratio] 20.8 mg/mg Normal [facility] Comment on above: Performed By: #### M Ayan, VIJI, LIPA, CMP ####[facility] [address] [place] [address]Dr. Tadeo Smyth UA RANDOM W/MICROSCOPICon BACTERIA TRACE Abnormal NONE SEEN [facility] Comment on above: Performed By: #### U AMIC ####[facility] [address] [place] [address]Dr. Tadeo Smyth Bilirubin Ql (U) Negative Normal NEGATIVE [facility] Comment on above: Performed By: #### U AMIC ####[facility] [address] [place] [address]Dr. Tadeo Smyth CAST NONE SEEN Normal NONE SEEN [facility] Comment on above: Performed By: #### U AMIC ####[facility] [address] [place], [place] [address]Dr. Tadeo Smyth Clarity (U) CLEAR Normal CLEAR [facility] Comment on above: Performed By: #### U AMIC ####[facility] [address] [place], [place] [address]Dr. Tadeo Smyth Color (U) LT. YELLOW Normal YELLOW [facility] Comment on above: Performed By: #### U AMIC ####[facility] [address]acwccwh[address] [place], [place] [address]Dr. Tadeo Smyth Crystals LM Nom (Urine sed) NONE SEEN Normal NONE SEEN [facility] Comment on above: Performed By: #### U AMIC ####[facility] Tr[address]ynhais[address] [place], [place] [address]Dr. Tadeo Smyth Epithelial cells LM Ql (Urine sed) RARE Normal NONE SEEN /RARE [facility] Comment on above: Performed By: #### U AMIC ####[facility] [address] [place], [place] [address]Dr. Tadeo Smyth Glucose Ql (U) Negative Normal NEGATIVE [facility] Comment on above: Performed By: #### U AMIC ####[facility] [address] [place], [place] [address]Dr. Tadeo Smyth Hemoglobin Ql (U) TRACE-LYSED Abnormal NEGATIVE [facility] Comment on above: Performed By: #### U AMIC ####[facility] [address] [place], [place] [address]Dr. Tadeo Smyth Ketones Ql (U) Negative Normal NEGATIVE [facility] Comment on above: Performed By: #### U AMIC ####[facility] [address] [place] [address]Dr. Tadeo Smyth LEUKOCYTES Negative Normal NEGATIVE [facility] Comment on above: Performed By: #### U AMIC ####[facility] Uc[address]hpcgvq[address] [place] [address]Dr. Tadeo Smyth MUCOUS NONE SEEN Normal NONE SEEN [facility] Comment on above: Performed By: #### U AMIC ####[facility] X[address]lp[address] [place] [address]Dr. Tadeo Smyth Nitrite Ql (U) Negative Normal NEGATIVE [facility] Comment on above: Performed By: #### U AMIC ####[facility] [address]pca[address] [place] [address]Dr. Tadeo Smyth pH (U) 6.0 [pH] Normal 5-[address] [facility] Comment on above: Performed By: #### U AMIC ####[facility] [address] [place], [place] [address]Dr. Tadeo Smyth RBC 0-2 Normal 0-[address] [facility] Comment on above: Performed By: #### U AMIC ####[facility] [address]bndinz[address] [place] [address]Dr. Tadeo Smyth SPEC GRAVITY 1.010 Normal 1.005-<=1.[address] [facility] Comment on above: Performed By: #### U AMIC ####[facility] [address] [place] [address]Dr. Tadeo Smyth UA PROTEIN Negative Normal NEGATIVE/ TRACE [facility] Comment on above: Performed By: #### U AMIC ####[facility] [address] [place] [address]Dr. Tadeo Smyth Urobilinogen Qn (U) 0.2 {Benito'U}/dL Normal 0.2 - 1. [address] [facility] Comment on above: Performed By: #### U AMIC ####[facility] [address] [place] [address]Dr. Tadeo Smyth WBC 0-2 Abnormal N[address] SEEN [facility] Comment on above: Performed By: #### U AMIC ####[facility] Upxxbqkeax[address] [place], [place] [address]RdNeo Smyth Activated partial thrombopla stin time (aPTT) in platelet poor plasma by coagulation aOrdered By: Conner Griffith on 10-26-2022 aPTT Coag (PPP) [Time] 30.8 s 25.1-36.5 [facility] Albumin [Mass/volume] in Ser um or PlasmaOrdered By: Conner Griffith on 10-26-2022 Albumin [Mass/Vol] 3.6 g/dL 3.2-5.5 [facility] Automated erythrocytes count in urine sediment (number/area)Ordered By: Conner Griffith on 10-26-2022 RBC Auto (Urine sed) [#/Area] 0-1 [HPF] 0-4 [facility] Automated leukocytes count i n urine sediment (number/area)Ordered By: Conner Griffith on 10-26-2022 WBC Auto (Urine sed) [#/Area] None seen [HPF] 0-4 [facility] Basophils Auto (Bld) [#/Vol] Ordered By: Conner Griffith on 10-26-2022 Basophils (Bld) [#/Vol] 0.0 10*3/uL 0.0-0.2 [facility] Basophils/100 WBC Auto (Bld) Ordered By: Conner Griffith on 10-26-2022 Basophils/100 WBC (Bld) 0.6 % . [facility] Bilirubin Test strip Ql (U)O rdered By: Conner Griffith on 10-26-2022 Bilirubin Ql (U) Negative Negative [facility] CT abdomen pelvis w conon CT abdomen pelvis w con [facility] [address] CT Scan Report Signed Patient: Constantino Cardoso MR#: [id number] : 1970 Acct:[id number] Age/Sex: 52 / F ADM Date: 10/26/22 Loc: ER Room: Type: [facility] ER Attending Dr: Copies to: Conner [...] Columba Domínguez M.D.10/26/2022 7:46 AM Dictation Location: [place] [address] Transcribed By: ANDREA 10/26/22745 Dictated By: Columba Domínguez MD 10/26/2238 Signed By: 10/26/22745 Normal [facility] Color Auto (U)Ordered By: Kevin Griffith on 10-26-2022 Color (U) Yellow Yellow [facility] Complete Blood Count Auto Di ffon 10-26-2022 Basophils (Bld) [#/Vol] 0.0 10*3/uL Normal 0.0-0.2 [facility] Comment on above: Result Comment: PERF ORMED BY: [place] [address] PATHOLOGIST LO[employer]ING [employer] UNLOADING SUPERVISOR ROOSEVELT KEYES M.D. Performed By: #### H EPATIC, CBC, BMP, LIPASE #### [address] Basophils/100 WBC (Bld) 0.6 % Normal . [facility] Comment on above: Performed By: #### H EPATIC, CBC, BMP, LIPASE #### [address] Eosinophils (Bld) [#/Vol] 0.2 10*3/uL Normal 0.0-0.45 [facility] Comment on above: Performed By: #### H EPATIC, CBC, BMP, LIPASE #### [address] Eosinophils/100 WBC (Bld) 3.3 % Normal . [facility] Comment on above: Performed By: #### H EPATIC, CBC, BMP, LIPASE #### [address] Erythrocyte distribution width (RBC) [Ratio] 14.5 % Normal 11.9-15.3 [facility] Comment on above: Performed By: #### H EPATIC, CBC, BMP, LIPASE #### [facility] [address] [place] [address] Hematocrit (Bld) [Volume fraction] 36.7 % Normal 34.0-46.4 [facility] Comment on above: Performed By: #### H EPATIC, CBC, BMP, LIPASE #### [facility] [address] [place] [address] Hemoglobin (Bld) [Mass/Vol] 12.1 g/dL Normal 11.8-15.4 [facility] Comment on above: Performed By: #### H EPATIC, CBC, BMP, LIPASE #### [address] Lymphocytes (Bld) [#/Vol] 1.9 10*3/uL Normal 1.00-4.8 [facility] Comment on above: Performed By: #### H EPATIC, CBC, BMP, LIPASE #### [address] Lymphocytes/100 WBC (Bld) 29.7 % Normal . [facility] Comment on above: Performed By: #### H EPATIC, CBC, BMP, LIPASE #### [address] MCH (RBC) [Entitic mass] 29.3 pg Normal 24.7-34.3 [facility] Comment on above: Performed By: #### H EPATIC, CBC, BMP, LIPASE #### [address] MCV (RBC) [Entitic vol] 88.5 fL Normal 80-100 [facility] Comment on above: Performed By: #### H EPATIC, CBC, BMP, LIPASE #### [address] Mean Corpuscular HGB Conc 33.1 g/dL Normal 32.0-35.0 [facility] Comment on above: Performed By: #### H EPATIC, CBC, BMP, LIPASE #### [address] Monocytes (Bld) [#/Vol] 0.4 10*3/uL Normal 0.0-0.8 [facility] Comment on above: Performed By: #### H EPATIC, CBC, BMP, LIPASE #### [address] Monocytes/100 WBC (Bld) 16.27 % Normal 0.00-20.00 [facility] Comment on above: Performed By: #### H EPATIC, CBC, BMP, LIPASE #### [address] Monocytes/100 WBC (Bld) 7.1 % Normal . [facility] Comment on above: Performed By: #### H EPATIC, CBC, BMP, LIPASE #### [facility] [address] [place] [address] Neutrophils (Bld) [#/Vol] 3.7 10*3/uL Normal 1.8-7.7 [facility] Comment on above: Performed By: #### H EPATIC, CBC, BMP, LIPASE #### [address] Neutrophils/100 WBC (Bld) 59.3 % Normal . [facility] Comment on above: Performed By: #### H EPATIC, CBC, BMP, LIPASE #### [address] NRBC% 0.3 /100{WBC} Normal 0-0.5 [facility] Comment on above: Performed By: #### H EPATIC, CBC, BMP, LIPASE #### [address] Platelet mean volume (Bld) [Entitic vol] 7.5 fL Normal 6.3-10.7 [facility] Comment on above: Performed By: #### H EPATIC, CBC, BMP, LIPASE #### [address] Platelets (Bld) [#/Vol] 379 10*3/uL Normal 150-450 [facility] Comment on above: Performed By: #### H EPATIC, CBC, BMP, LIPASE #### [address] RBC (Bld) [#/Vol] 4.14 10*6/uL Normal 3.60-5.00 [facility] Comment on above: Performed By: #### H EPATIC, CBC, BMP, LIPASE #### [place] [address] [place] WBC (Bld) [#/Vol] 6.3 10*3/uL Normal 3.8-11.6 [facility] Comment on above: Performed By: #### H EPATIC, CBC, BMP, LIPASE #### [facility] [address] [place] [address] Comprehensive Metabolic Pane miranda 10-26-2022 Albumin [Mass/Vol] 3.6 g/dL Normal 3.2-5.5 [facility] Comment on above: Performed By: #### H EPATIC, CBC, BMP, LIPASE #### [facility] [address] [place] [address] Albumin/Globulin [Mass ratio] 1.1 {ratio} Normal [facility] Comment on above: Performed By: #### H EPATIC, CBC, BMP, LIPASE #### [address] ALP [Catalytic activity/Vol] 121 U/L High 32-92 [facility] Comment on above: Performed By: #### H EPATIC, CBC, BMP, LIPASE #### [address] ALT [Catalytic activity/Vol] 18 U/L Normal 10-60 [facility] Comment on above: Performed By: #### H EPATIC, CBC, BMP, LIPASE #### [address] Anion gap [Moles/Vol] 11.3 mmol/L Normal 6.0-15.0 [facility] Comment on above: Performed By: #### H EPATIC, CBC, BMP, LIPASE #### [address] AST [Catalytic activity/Vol] 19 U/L Normal 10-42 [facility] Comment on above: Performed By: #### H EPATIC, CBC, BMP, LIPASE #### [facility] [address] [place] [address] Bilirubin [Mass/Vol] 0.4 mg/dL Normal 0.3-1.2 [facility] Comment on above: Performed By: #### H EPATIC, CBC, BMP, LIPASE #### [facility] [address] [place] [address] Calcium [Mass/Vol] 8.9 mg/dL Normal 8.2-10.2 [facility] Comment on above: Performed By: #### H EPATIC, CBC, BMP, LIPASE #### [facility] [address] [place] [address] Chloride [Moles/Vol] 108 mmol/L Normal 95-114 [facility] Comment on above: Performed By: #### H EPATIC, CBC, BMP, LIPASE #### [facility] [address] [place] [address] CO2 [Moles/Vol] 25.1 mmol/L Normal 22.0-30.0 [facility] Comment on above: Performed By: #### H EPATIC, CBC, BMP, LIPASE #### [address] Creatinine [Mass/Vol] 0.81 mg/dL Normal 0.44-1.03 [facility] Comment on above: Performed By: #### H EPATIC, CBC, BMP, LIPASE #### [address] Creatinine Clr Calc Pharmacy 93.01 [facility] Comment on above: Performed By: #### H EPATIC, CBC, BMP, LIPASE #### [address] Estimated GFR ( Roberto > 60 [facility] Comment on above: Result Comment: GFR estimated reference range: According to KDOQI guidelines, <60 ml/min/1.73m2 is sufficient to diagnose a patient with chronic kidney disease. Performed By: #### H EPATIC, CBC, BMP, LIPASE #### [facility] [address] [place] [address] Estimated GFR (Non- Am > 60 [facility] Comment on above: Performed By: #### H EPATIC, CBC, BMP, LIPASE #### [address] Globulin (S) [Mass/Vol] 3.2 g/dL [facility] Comment on above: Performed By: #### H EPATIC, CBC, BMP, LIPASE #### [facility] [address] Glucose [Mass/Vol] 95 mg/dL Normal 70-100 [facility] Comment on above: Result Comment: [facility] Glucose Reference Range is dependent on time and content of last meal. Glucose of more than 200 mg/dL in a nonstressed, ambulatory subject supports the diagnosis of Diabetes Mellitus. ADA recommended reference range Performed By: #### H EPATIC, CBC, BMP, LIPASE #### [address] Potassium [Moles/Vol] 3.4 mmol/L Low 3.5-5.1 [facility] Comment on above: Performed By: #### H EPATIC, CBC, BMP, LIPASE #### [address] Protein [Mass/Vol] 6.8 g/dL Normal 6.1-7.9 [facility] Comment on above: Performed By: #### H EPATIC, CBC, BMP, LIPASE #### [address] Sodium [Moles/Vol] 141 mmol/L Normal 136-146 [facility] Comment on above: Performed By: #### H EPATIC, CBC, BMP, LIPASE #### [address] Urea nitrogen [Mass/Vol] 18 mg/dL Normal 9-23 [facility] Comment on above: Performed By: #### H EPATIC, CBC, BMP, LIPASE #### [address] Creatinine and Glomerular fi ltration rate.predicted panel (S/P/Bld)Ordered By: Conner Griffith on 10-26-2022 Creatinine [Mass/Vol] 0.81 mg/dL 0.44-1.03 [facility] Dipstick and Microscopicon 0 10-26-2022 Appearance (U) Clear Normal Clear [facility] Comment on above: Order Comment: Name Collection Type:: Clean-Voided Midstream Performed By: #### H EPATIC, CBC, BMP, LIPASE #### [facility] [address] [place] [address] [place] Bacteria,Urine None Seen Normal None Seen [facility] Comment on above: Order Comment: Name Collection Type:: Clean-Voided Midstream Performed By: #### H EPATIC, CBC, BMP, LIPASE #### [facility] [address] [place] [address] [place] Bilirubin,Urine Negative Normal Negative [facility] Comment on above: Order Comment: Name Collection Type:: Clean-Voided Midstream Performed By: #### H EPATIC, CBC, BMP, LIPASE #### [facility] [address] Color (U) Yellow Normal Yellow [facility] Comment on above: Order Comment: Name Collection Type:: Clean-Voided Midstream Performed By: #### H EPATIC, CBC, BMP, LIPASE #### [facility] [address] [place] [address] Glucose Ql (U) Normal Normal Normal [facility] Comment on above: Order Comment: Name Collection Type:: Clean-Voided Midstream Performed By: #### H EPATIC, CBC, BMP, LIPASE #### [facility] [address] [place] [address] Hyaline Casts,Urine None Seen Normal 0-8 [facility] Comment on above: Order Comment: Name Collection Type:: Clean-Voided Midstream Result Comment: PERF ORMED BY: [place] [address] PATHOLOGIST LO[employer]ING [employer] UNLOADING SUPERVISOR ROOSEVELT KEYES M.D. Performed By: #### H EPATIC, CBC, BMP, LIPASE #### [facility] [address] [place] [address] [place] Ketones Ql (U) Negative Normal Negative [facility] Comment on above: Order Comment: Name Collection Type:: Clean-Voided Midstream Performed By: #### H EPATIC, CBC, BMP, LIPASE #### [facility] [address] [place] [address] Leukocyte esterase Test strip Ql (U) 1+ High Negative [facility] Comment on above: Order Comment: Name Collection Type:: Clean-Voided Midstream Performed By: #### H EPATIC, CBC, BMP, LIPASE #### [address] Nitrite,Urine Negative Normal Negative [facility] Comment on above: Order Comment: Name Collection Type:: Clean-Voided Midstream Performed By: #### H EPATIC, CBC, BMP, LIPASE #### [address] Occult Blood,Urine Negative Normal Negative [facility] Comment on above: Order Comment: Name Collection Type:: Clean-Voided Midstream Result Comment: PERF ORMED BY: [place] [address] PATHOLOGIST LO[employer]ING [employer] UNLOADING SUPERVISOR ROOSEVELT KEYES M.D. Performed By: #### H EPATIC, CBC, BMP, LIPASE #### [address] pH (U) 6.5 [pH] Normal 5.0-9.0 [facility] Comment on above: Order Comment: Name Collection Type:: Clean-Voided Midstream Performed By: #### H EPATIC, CBC, BMP, LIPASE #### [address] Protein,Urine Negative Normal Negative [facility] Comment on above: Order Comment: Name Collection Type:: Clean-Voided Midstream Performed By: #### H EPATIC, CBC, BMP, LIPASE #### [address] RBC LM.HPF (Urine sed) [#/Area] 0 /[HPF] Normal 0-4 [facility] Comment on above: Order Comment: Name Collection Type:: Clean-Voided Midstream Performed By: #### H EPATIC, CBC, BMP, LIPASE #### [address] Specificy [place],Urine 1.019 Normal 1.001-1.030 [facility] Comment on above: Order Comment: Name Collection Type:: Clean-Voided Midstream Performed By: #### H EPATIC, CBC, BMP, LIPASE #### [facility] [address] Squamous Epithelial Cell,Urine 1-2 Normal 0-2 [facility] Comment on above: Order Comment: Name Collection Type:: Clean-Voided Midstream Performed By: #### H EPATIC, CBC, BMP, LIPASE #### [facility] [address] Urobilinogen,Urine Normal Normal Normal [facility] Comment on above: Order Comment: Name Collection Type:: Clean-Voided Midstream Performed By: #### H EPATIC, CBC, BMP, LIPASE #### [facility] [address] [place] [address] WBC,Urine None Seen Normal 0-4 [facility] Comment on above: Order Comment: Name Collection Type:: Clean-Voided Midstream Performed By: #### H EPATIC, CBC, BMP, LIPASE #### [facility] [address] [place] [address] Eosinophils Auto (Bld) [#/Vo l]Ordered By: Conner Griffith on 10-26-2022 Eosinophils (Bld) [#/Vol] 0.2 10*3/uL 0.0-0.45 [facility] Eosinophils/100 WBC Auto (Bl d)Ordered By: Conner Griffith on 10-26-2022 Eosinophils/100 WBC (Bld) 3.3 % . [facility] Erythrocyte distribution wid th Auto (RBC) [Ratio]Ordered By: Conner Griffith on 10-26-2022 Erythrocyte distribution width (RBC) [Ratio] 14.5 % 11.9-15.3 [facility] Estimated glomerular filtrat ion rate (GFR) non- AmericanOrdered By: Conner Griffith on 10-26-2022 GFR/1.73 sq M.predicted among non-blacks MDRD (S/P/Bld) [Vol rate/Area] > 60 mL/Min [facility] Globulin Calc (S) [Mass/Vol] Ordered By: Conner Griffith on 10-26-2022 Globulin (S) [Mass/Vol] 3.2 g/dL [facility] Hematocrit Auto (Bld) [Volum e fraction]Ordered By: Conner Griffith on 10-26-2022 Hematocrit (Bld) [Volume fraction] 36.7 % 34.0-46.4 [facility] Hemoglobin [Mass/volume] in BloodOrdered By: Conner Griffith on 10-26-2022 Hemoglobin (Bld) [Mass/Vol] 12.1 g/dL 11.8-15.4 [facility] Ketones Auto test strip (U) [Mass/Vol]Ordered By: Conner Griffith on 10-26-2022 Ketones (U) [Mass/Vol] Negative Negative [facility] Laboratory - Chemistry and C hemistry - challengeOrdered By: Conner Griffith on 10-26-2022 Lipase [Catalytic activity/Vol] 37.0 U/L [facility] - CoagulationOrde red By: Conner Griffith on 10-26-2022 PT Coag (PPP) [Time] 10.6 s 9.0-12.9 [facility] - UrinalysisOrder ed By: Conner Griffith on 10-26-2022 Hyaline casts LM Ql (Urine sed) None seen [LPF] 0-8 [facility] Lactic Acidon 10-26-2022 Lactate [Moles/Vol] 1.0 mmol/L Normal 0.5-2.2 [facility] Comment on above: Result Comment: PERF ORMED BY: [place] [address] PATHOLOGIST LOADING AND UNLOADING SUPERVISOR ROOSEVELT KEYES M.D. Performed By: #### H EPATIC, CBC, BMP, LIPASE #### [address] Leukocytes [#/volume] correc jun for nucleated erythrocytes in Blood by Automated counOrdered By: Conner Griffith on 10-26-2022 WBC corrected for nucl RBC Auto (Bld) [#/Vol] 6.3 10*3/uL 3.8-11.6 [facility] Lipaseon 10-26-2022 Lipase [Catalytic activity/Vol] 37.0 U/L Normal [facility] Comment on above: Result Comment: PERF ORMED BY: [place] [address] PATHOLOGIST LOADING AND UNLOADING SUPERVISOR ROOSEVELT KEYES M.D. Performed By: #### H EPATIC, CBC, BMP, LIPASE #### [facility] [address] Lymphocytes Auto (Bld) [#/Vo l]Ordered By: Conner Griffith on 10-26-2022 Lymphocytes (Bld) [#/Vol] 1.9 10*3/uL 1.00-4.8 [facility] Lymphocytes/100 WBC Auto (Bl d)Ordered By: Conner Griffith on 10-26-2022 Lymphocytes/100 WBC (Bld) 29.7 % . [facility] MCH Auto (RBC) [Entitic mass ]Ordered By: Conner Griffith on 10-26-2022 MCH (RBC) [Entitic mass] 29.3 pg 24.7-34.3 [facility] MCHC Auto (RBC) [Mass/Vol]Or dered By: Conner Griffith on 10-26-2022 MCHC (RBC) [Mass/Vol] 33.1 g/dL 32.0-35.0 [facility] MCV Auto (RBC) [Entitic vol] Ordered By: Conner Griffith on 10-26-2022 MCV (RBC) [Entitic vol] 88.5 fL 80-100 [facility] Monocyte distribution width [Entitic volume] in Blood by AutomatedOrdered By: Conner Griffith on 10-26-2022 Monocyte distribution width Auto (Bld) [Entitic vol] 16.27 % 0.00-20.00 [facility] Monocytes Auto (Bld) [#/Vol] Ordered By: Conner Griffith on 10-26-2022 Monocytes (Bld) [#/Vol] 0.4 10*3/uL 0.0-0.8 [facility] Monocytes/100 WBC Auto (Bld) Ordered By: Conner Griffith on 10-26-2022 Monocytes/100 WBC (Bld) 7.1 % . [facility] Neutrophils Auto (Bld) [#/Vo l]Ordered By: Conner Griffith on 10-26-2022 Neutrophils (Bld) [#/Vol] 3.7 10*3/uL 1.8-7.7 [facility] Neutrophils/100 WBC Auto (Bl d)Ordered By: Conner Griffith on 10-26-2022 Neutrophils/100 WBC (Bld) 59.3 % . [facility] Nitrite Test strip Ql (U)Ord ered By: Conner Griffith on 10-26-2022 Nitrite Ql (U) Negative Negative [facility] No Panel InformationOrdered By: Conner Griffith on 10-26-2022 Estimated GFR () > 60 mL/Min [facility] Comment on above: GFR estimated refere nce range: According to KDOQI guidelines, <60 ml/min/1.73m2 is sufficient to diagnose a patient with chronic kidney disease. Pharmacy Creatinine Clearance (Chem 93.01 [facility] Nucleated erythrocytes [Pres ence] in Blood by Automated countOrdered By: Conner Griffith on 10-26-2022 Nucleated RBC Auto Ql (Bld) 0.3 /100{WBC} 0-0.5 [facility] Partial Thromboplastin Timeo n 10-26-2022 aPTT Coag (Bld) [Time] 30.8 s Normal 25.1-36.5 [facility] Comment on above: Result Comment: PERF ORMED BY: [place] [address] PATHOLOGIST LO[employer]ING AND UNLOADING SUPERVISOR ROOSEVELT KEYES M.D. Performed By: #### H EPATIC, CBC, BMP, LIPASE #### [address] Platelet mean volume Auto (B ld) [Entitic vol]Ordered By: Conner Griffith on 10-26-2022 Platelet mean volume (Bld) [Entitic vol] 7.5 fL 6.3-10.7 [facility] Platelet poor plasma interna tional normalized ratio (INR) by coagulation assay (relatOrdered By: Conner Griffith on 10-26-2022 INR Coag (PPP) [Relative time] 0.9 {INR} [facility] Comment on above: INR Therapeutic Rang [...] 10-26-2022 Platelets (Bld) [#/Vol] 379 10*3/uL 150-450 [facility] Protein Auto test strip (U) [Mass/Vol]Ordered By: Conner Griffith on 10-26-2022 Protein (U) [Mass/Vol] Negative Negative [facility] Protein [Mass/volume] in Ser um or PlasmaOrdered By: Conner Griffith on 10-26-2022 Protein [Mass/Vol] 6.8 g/dL 6.1-7.9 [facility] Prothrombin Time INRon 10-26 INR Coag (PPP) [Relative time] 0.9 {INR} Normal [facility] Comment on above: Result Comment: INR [...] #### H EPATIC, CBC, BMP, LIPASE #### [facility] [address] [address] PT Coag (PPP) [Time] 10.6 s Normal 9.0-12.9 [facility] Comment on above: Performed By: #### H EPATIC, CBC, BMP, LIPASE #### [facility] [address] RBC Auto (Bld) [#/Vol]Ordere d By: Conner Griffith on 10-26-2022 RBC (Bld) [#/Vol] 4.14 10*6/uL 3.60-5.00 [facility] Serum or plasma alanine cooley otransferase measurement without P-5'-P (enzymatic activiOrdered By: Conner Griffith on 10-26-2022 ALT No additional P-5'-P [Catalytic activity/Vol] 18 U/L 10-60 [facility] Serum or plasma albumin/glob ulin mass ratioOrdered By: Conner Griffith on 10-26-2022 Albumin/Globulin [Mass ratio] 1.1 {ratio} [facility] Serum or plasma alkaline augustin sphatase measurement (enzymatic activity/volume)Ordered By: Conner Griffith on 10-26-2022 ALP [Catalytic activity/Vol] 121 U/L 32-92 [facility] Serum or plasma anion gap de terminationOrdered By: Conner Griffith on 10-26-2022 Anion gap [Moles/Vol] 11.3 mmol/L 6.0-15.0 [facility] Serum or plasma aspartate am inotransferase measurement (enzymatic activity/volume)Ordered By: Conner Griffith on 10-26-2022 AST [Catalytic activity/Vol] 19 U/L 10-42 [facility] Serum or plasma calcium julee urement (mass/volume)Ordered By: Conner Griffith on 10-26-2022 Calcium [Mass/Vol] 8.9 mg/dL 8.2-10.2 [facility] Serum or plasma chloride julio surement (moles/volume)Ordered By: Conner Griffith on 10-26-2022 Chloride [Moles/Vol] 108 mmol/L 95-114 [facility] Serum or plasma glucose julee urement (mass/volume)Ordered By: Conner Griffith on 10-26-2022 Glucose [Mass/Vol] 95 mg/dL 70-100 [facility] Comment on above: ADA recommended refe rence rangeRandom Glucose Reference Range is dependent on time and content of last meal. Glucose of more than 200 mg/dL in a nonstressed, ambulatory subject supports the diagnosis of Diabetes Mellitus. Serum or plasma potassium me asurement (moles/volume)Ordered By: Conner Griffith on 10-26-2022 Potassium [Moles/Vol] 3.4 mmol/L 3.5-5.1 [facility] Serum or plasma sodium measu rement (moles/volume)Ordered By: Conner Griffith on 10-26-2022 Sodium [Moles/Vol] 141 mmol/L 136-146 [facility] Serum or plasma total biliru bin measurement (mass/volume)Ordered By: Conner Griffith on 10-26-2022 Bilirubin [Mass/Vol] 0.4 mg/dL 0.3-1.2 [facility] Serum or plasma total carbon dioxide measurement (moles/volume)Ordered By: Conner Griffith on 10-26-2022 CO2 [Moles/Vol] 25.1 mmol/L 22.0-30.0 [facility] Serum or plasma urea nitroge n measurement (mass/volume)Ordered By: Conner Grifftih on 10-26-2022 Urea nitrogen [Mass/Vol] 18 mg/dL 9-23 [facility] Specific gravity Auto test s trip (U) [Rel density]Ordered By: Conner Griffith on 10-26-2022 Specific gravity (U) [Rel density] 1.019 1.001-1.030 [facility] Squamous epithelial cells de tection in urine sediment by light microscopyOrdered By: Conner Griffith on 10-26-2022 Epithelial cells.squamous LM Ql (Urine sed) 1-2 [HPF] 0-2 [facility] Urine bacteria detection by automated methodOrdered By: Conner Griffith on 10-26-2022 Bacteria Auto Ql (U) None seen None Seen [facility] Urine clarity by refractomet ry automatedOrdered By: Conner Griffith on 10-26-2022 Clarity Refractometry automated (U) Clear Clear [facility] Urine glucose measurement by automated test strip (mass/volume)Ordered By: Conner Griffith on 10-26-2022 Glucose Auto test strip (U) [Mass/Vol] Normal mg/dL Normal [facility] Urine hemoglobin detection b y automated test stripOrdered By: Conner Griffith on 10-26-2022 Hemoglobin Auto test strip Ql (U) Negative Negative [facility] Urine lactic acid measuremen tOrdered By: Conner Griffith on 10-26-2022 Lactate (U) [Moles/Vol] 1.0 mmol/L 0.5-2.2 [facility] Urine leukocyte esterase det ection by automated test stripOrdered By: Conner Griffith on 10-26-2022 Leukocyte esterase Auto test strip Ql (U) 1+ Negative [facility] Urobilinogen Auto test strip (U) [Mass/Vol]Ordered By: Conner Griffith on 10-26-2022 Urobilinogen (U) [Mass/Vol] Normal mg/dL Normal [facility] WBC Auto (Bld) [#/Vol]Ordere d By: Conner Griffith on 10-26-2022 WBC (Bld) [#/Vol] 6.3 10*3/uL 3.8-11.6 [facility] pH Auto test strip (U)Ordere d By: Conner Griffith on 10-26-2022 pH (U) 6.5 [pH] 5.0-9.0 [facility] Auth for Release of Medical Recordson 10-25-2022 Auth for Release of Medical Records [id number]#1.00CD:127 Normal [facility] CBC AUTO DIFFon 09-21-2022 BASO # 0.0 103/ul Normal 0.0-0.[address] [facility] Comment on above: Performed By: #### C BC ####[facility] [address]vatim[address] [place] [address]Dr. Tadeo Smyth Basophils/100 WBC (Bld) 0.4 % Normal 0.2-2.[address] [facility] Comment on above: Performed By: #### C BC ####[facility] Micsughvkd15[address] [place] [address]Dr. Tadeo Haja EO # 0.1 103/ul Normal 0.0-0.[address] [facility] Comment on above: Performed By: #### C BC ####[facility] Ejfwpewpqr65[address] [place] [address]Dr. Tadeo Smyth Eosinophils/100 WBC (Bld) 1.8 % Normal 0.9-7.[address] [facility] Comment on above: Performed By: #### C BC ####[facility] Sgpmhyvyro[address] [place] [address]Dr. Tadeo Smyth Erythrocyte distribution width (RBC) [Ratio] 13.8 % Normal 11.0-15.[address] [facility] Comment on above: Performed By: #### C BC ####[facility] [address]mp[address]emxpq[address] [place], [place] [address]Dr. Tadeo Smyth Hematocrit (Bld) [Volume fraction] 41.0 % Normal 36.0-48.[address] [facility] Comment on above: Performed By: #### C BC ####[facility] Aofhdnxxnw[address] [place], [place] [address]Dr. Tadeo Smyth Hemoglobin (Bld) [Mass/Vol] 13.3 g/dL Normal 12.0-16.0 [facility] Comment on above: Performed By: #### C BC ####[facility] Xldbreogwk[address] [place], [place] [address]Dr. Tadeo Smyth IG # 0.01 10e3/ul Normal 0.00-0.[address] [facility] Comment on above: Performed By: #### C BC ####[facility] Avanxavouj93[address] [place], [place] [address]Dr. Tadeo Smyth IG % 0.1 % Normal 0.0-0.[address] [facility] Comment on above: Performed By: #### C BC ####[facility] Qgqlvxzchw[address] [place], [place] [address]Dr. Tadeo Smyth LYMPH # 1.7 103/ul Normal 1.2-3.[address] [facility] Comment on above: Performed By: #### C BC ####[facility] Awusvsfvre98[address] [place], [place] [address]Dr. Tadeo Smyth Lymphocytes/100 WBC (Bld) 24.8 % Normal 20.5-60.[address] [facility] Comment on above: Performed By: #### C BC ####[facility] Dvkayzfizz[address] [place], [place] [address]Dr. Tadeo Smyth MANUAL DIFF REQ NO Normal [facility] Comment on above: Performed By: #### C BC ####[facility] K[address] [place], [place] [id number]. Tadeo Smyth MCH (RBC) [Entitic mass] 29.0 pg Normal 26.7-34.[address] [facility] Comment on above: Performed By: #### C BC ####[facility] Lhwssaeday[address] [place] [address]Dr. Tadeo Smyth MCHC (RBC) [Mass/Vol] 32.4 g/dL Normal 29.9-35.[address] [facility] Comment on above: Performed By: #### C BC ####[facility] Itnkivkcop2319 [place] [address]Dr. Tadeo Smyth MCV (RBC) [Entitic vol] 89.3 fL Normal 81.0-99.[address] [facility] Comment on above: Performed By: #### C BC ####[facility] Lbuqouzdzh22[address] [place] [address]Dr. Tadeo Haja MONO # 0.5 103/ul Normal 0.3-0.[address] [facility] Comment on above: Performed By: #### C BC ####[facility] Sgapjfyuil[address] [place], [place] [address]Dr. Tadeo Haja Monocytes/100 WBC (Bld) 6.9 % Normal 1.7-12.[address] [facility] Comment on above: Performed By: #### C BC ####[facility] Rupdznlzfv[address] [place] [address]Dr. Tadeo Smyth NEUT # 4.5 103/ul Normal 1.4-6.[address] [facility] Comment on above: Performed By: #### C BC ####[facility] Dupifmbvpk356[address] [place], [place] [address]Dr. Tadeo Haja Neutrophils/100 WBC (Bld) 66.0 % Normal 43.0-75.[address] [facility] Comment on above: Performed By: #### C BC ####[facility] Andfwwdteg5035 [place] [address]Dr. Tadeo Haja Platelet mean volume (Bld) [Entitic vol] 8.8 fL Critically low 9.5-13.[address] [facility] Comment on above: Performed By: #### C BC ####[facility] Weovilczjp[address] [place] [id number]. Tadeo Smyth PLT 384 103/ul Normal 150-[address] [facility] Comment on above: Performed By: #### C BC ####[facility] Unyduwkbps[address] [place] [id number]. Tadeo Smyth RBC 4.59 106/ul Normal 4.20-5.[address] [facility] Comment on above: Performed By: #### C BC ####[facility] Twyqtsaqqs3054 [place] [address]Dr. Tadeo Smyth WBC 6.8 103/ul Normal 4.0-11.[address] [facility] Comment on above: Performed By: #### C BC ####[facility] Skxibrobig130[address] [place], [place] [address]Dr. Margotnicole Smyth PROF CHEM 8 (BAS METB)on Anion gap [Moles/Vol] 13.8 mmol/L Normal [facility] Comment on above: Performed By: #### B MP ####[facility] Hgvoiuwsrl645[address] [place], [place] [address]Dr. Tadeo Smyth Calcium [Mass/Vol] 9.6 mg/dL Normal 8.5-10.[address] [facility] Comment on above: Performed By: #### B MP ####[facility] Geblysyowg[address] [place], [place] [address]Dr. Tadeo Smyth Chloride [Moles/Vol] 106 mmol/L Normal 98-[address] [facility] Comment on above: Performed By: #### B MP ####[facility] Iaornioxtg67[address] [place], [place] [address]Dr. Tadeo Smyth CO2 [Moles/Vol] 25.9 mmol/L Normal 21.0-32.[address] [facility] Comment on above: Performed By: #### B MP ####[facility] Eyirvdvzdh45[address] [place], [place] [address]Dr. Tadeo Smyth Creatinine [Mass/Vol] 0.92 mg/dL Normal 0.55-1.[address] [facility] Comment on above: Performed By: #### B MP ####[facility] Mmfsfgumla[address] [place] [address]Dr. Tadeo Smyth EGFR-AF BRUNEIAN >60 Normal >=[address] [facility] Comment on above: Performed By: #### B MP ####[facility] Pdffcsjdbk4897 [place] [address]Dr. Tadeo Smyth EGFR-NON AF BRUNEIAN >60 Normal >=[address] [facility] Comment on above: Performed By: #### B MP ####[facility] Zlgzawgavc7941 [place] [address]Dr. Tadeo Smyth Glucose [Mass/Vol] 98 mg/dL Normal 74-[address] [facility] Comment on above: Performed By: #### B MP ####[facility] Tvqrxssyxl[address] [place], [place] [address]Dr. Margotnicole Smyth Potassium [Moles/Vol] 3.7 mmol/L Normal 3.5-5.1 [facility] Comment on above: Performed By: #### B MP ####[facility] Umqdprzluf[address] [place], [place] [address]Dr. Tadeo Smyth Sodium [Moles/Vol] 142 mmol/L Normal 136-[address] [facility] Comment on above: Performed By: #### B MP ####[facility] Qhwdmelvhs[address] [place], [place] [address]Dr. Tadeo Smyth Urea nitrogen [Mass/Vol] 19.0 mg/dL Critically high 7.0-18.0 [facility] Comment on above: Performed By: #### B MP ####[facility] Didufhvmej[address] [place], [place] [address]Dr. Margotnicole Haja Urea nitrogen/Creatinine [Mass ratio] 20.7 mg/mg Normal [facility] Comment on above: Performed By: #### B MP ####[facility] Liykejfcqg[address] [place], [place] [address]Dr. Tadeo Haja XR KUB 1 VIEWon 09-21-2022 XR KUB [address] [facility] Lab Reportson 09-20-2022 Lab Reports [id number]#[id number]:127 Normal [facility] RAD - CT Reporton 09-20-[address] RAD - CT Report [id number]#1.00CD:127 Normal [facility] RAD - MISCon 09-20-2022 RAD - MISC [id number]#1.00CD:127 Normal [facility] AMYLASEon 09-18-2022 Amylase [Catalytic activity/Vol] 58 U/L Normal 25-115 [facility] Comment on above: Performed By: #### L IPA, CMP, VIJI ####[facility] Sexiamvuik[address] [place] [address]Dr. Tadeo Smyth CBC AUTO DIFFon 09-18-2022 BASO # 0.0 103/ul Normal 0.0-0.1 [facility] Comment on above: Performed By: #### C BC ####[facility] Pkopcadhbj7747 [place] [address]Dr. Tadeo Smyth Basophils/100 WBC (Bld) 0.3 % Normal 0.2-2.0 [facility] Comment on above: Performed By: #### C BC ####[facility] Mfeoixdbqy70[address] [place], [place] [address]Dr. Tadeo Smyth EO # 0.1 103/ul Normal 0.0-0.7 [facility] Comment on above: Performed By: #### C BC ####[facility] Vpuoocuzey[address] [place] [address]Dr. Tadeo Smyth Eosinophils/100 WBC (Bld) 1.8 % Normal 0.9-7.0 [facility] Comment on above: Performed By: #### C BC ####[facility] Gzyzyuvdpd[address] [place], [place] [address]Dr. Tadeo Smyth Erythrocyte distribution width (RBC) [Ratio] 13.7 % Normal 11.0-15.0 [facility] Comment on above: Performed By: #### C BC ####[facility] Xspnspwwri92[address] [place], [place] [address]Dr. Tadeo Smyth Hematocrit (Bld) [Volume fraction] 37.4 % Normal 36.0-48.0 [facility] Comment on above: Performed By: #### C BC ####[facility] Umaoymmlap[address] [place] [address]DrNeo Smyth Hemoglobin (Bld) [Mass/Vol] 12.3 g/dL Normal 12.0-16.0 [facility] Comment on above: Performed By: #### C BC ####[facility] Vxungengkk198[address] [place], [place] [address]DrNeo Smyth IG # 0.02 10e3/ul Normal 0.00-0.03 [facility] Comment on above: Performed By: #### C BC ####[facility] Gkrodlmngy97[address] [place], [place] [address]DrNeo Smyth IG % 0.3 % Normal 0.0-0.5 [facility] Comment on above: Performed By: #### C BC ####[facility] Snsvtroblt85[address] [place], [place] [address]DrNeo Smyth LYMPH # 2.2 103/ul Normal 1.2-3.8 [facility] Comment on above: Performed By: #### C BC ####[facility] Jblypuwqim[address] [place], [place] [address]DrNeo Smyth Lymphocytes/100 WBC (Bld) 29.3 % Normal 20.5-60.0 [facility] Comment on above: Performed By: #### C BC ####[facility] Wdqagsfnht[address] [place], [place] [address]DrNeo Smyth MANUAL DIFF REQ NO Normal [facility] Comment on above: Performed By: #### C BC ####[facility] Cqyexdlalw3726 [place] [address]DrNeo Smyth MCH (RBC) [Entitic mass] 29.0 pg Normal 26.7-34.0 [facility] Comment on above: Performed By: #### C BC ####[facility] Gbluolfqev60[address] [place], [place] [address]DrNeo Smyth MCHC (RBC) [Mass/Vol] 32.9 g/dL Normal 29.9-35.[address] [facility] Comment on above: Performed By: #### C BC ####[facility] Umaczokaog[address] [place] [address]DrNeo Smyth MCV (RBC) [Entitic vol] 88.2 fL Normal 81.0-99.[address] [facility] Comment on above: Performed By: #### C BC ####[facility] Dklochqfoq6870 [place] [address]DrNeo Smyth MONO # 0.5 103/ul Normal 0.3-0.[address] [facility] Comment on above: Performed By: #### C BC ####[facility] Rqkvmqdrrp6982 [place] [address]DrNeo Smyth Monocytes/100 WBC (Bld) 6.4 % Normal 1.7-12.[address] [facility] Comment on above: Performed By: #### C BC ####[facility] Tbngelylap9[address] [place], [place] [address]Dr. Tadeo Smyth NEUT # 4.7 103/ul Normal 1.4-6.[address] [facility] Comment on above: Performed By: #### C BC ####[facility] Ljczynrkfh[address] [place], [place] [address]Dr. Tadeo Smyth Neutrophils/100 WBC (Bld) 61.9 % Normal 43.0-75.[address] [facility] Comment on above: Performed By: #### C BC ####[facility] Cywjdtelmi0943 [place] [address]DrNeo Smyth Platelet mean volume (Bld) [Entitic vol] 9.0 fL Critically low 9.5-13.[address] [facility] Comment on above: Performed By: #### C BC ####[facility] Ldmsxunigm[address] [place], [place] [address]Dr. Tadeo Smyth PLT 395 103/ul Normal 150-[address] [facility] Comment on above: Performed By: #### C BC ####[facility] Bsayomeong3[address] [place] [id number] Smyth RBC 4.24 106/ul Normal 4.20-5.[address] [facility] Comment on above: Performed By: #### C BC ####[facility] Kavobanwtg1891 [place] [address]Dr. Tadeo Smyth WBC 7.6 103/ul Normal 4.0-11.0 [facility] Comment on above: Performed By: #### C BC ####[facility] Xawatfjtsk[address] [place], [place] [address]Dr. Tadeo Smyth CT ABD/PELV W CONon 09-18-[address] ABD/PELV W CON Normal [facility] ER URINE PROFILEon 3 Bilirubin Ql (U) SMALL Abnormal NEGATIVE [facility] Comment on above: Performed By: #### KAROL MERCHANT ####[facility] Owimnrrfnf[address] [place], [place] [address]Dr. Tadeo Smyth Clarity (U) CLEAR Normal CLEAR [facility] Comment on above: Performed By: #### KAROL MERCHANT ####[facility] Cldgsmstmc[address] [place], [place] [address]Dr. Tadeo Smyth Color (U) DK. YELLOW Normal YELLOW [facility] Comment on above: Performed By: #### KAROL MERCHANT ####[facility] Dtjondorop[address] [place], [place] [address]Dr. Tadeo CAMARGOD A micrscopic examina tion will be performed if indicated. Normal [facility] Comment on above: Performed By: #### KAROL MERCHANT ####[facility] Rutdesaxoi[address] [place], [place] [address]Dr. Tadeo Smyth Glucose Ql (U) Negative Normal NEGATIVE [facility] Comment on above: Performed By: #### KAROL MERCHANT ####[facility] Zchkosoecr[address] [place], [place] [address]Dr. Tadeo Smyth Hemoglobin Ql (U) SMALL Abnormal NEGATIVE [facility] Comment on above: Performed By: #### KAROL MERCHANT ####[facility] Xwfsjmmsct[address] [place], [place] [address]Dr. Tadeo Smyth Ketones Ql (U) Negative Normal NEGATIVE [facility] Comment on above: Performed By: #### Matthew FRANCISCO UMICRO ####[facility] Yxaquvdhrc[address] [place] [address]Dr. Tadeo Smyth LEUKOCYTES Negative Normal NEGATIVE [facility] Comment on above: Performed By: #### Matthew FRANCISCO UMICRO ####[facility] Nnribrjixs9256 [place] [address]Dr. Tadeo Smyth Nitrite Ql (U) Negative Normal NEGATIVE [facility] Comment on above: Performed By: #### Matthew FRANCISCO UMICRO ####[facility] Jfzhoiqzth5821 [place] [address]Dr. Tadeo Smyth pH (U) 5.5 [pH] Normal 5-9 [facility] Comment on above: Performed By: #### Matthew FRANCISCO UMICRO ####[facility] Z[address]rmkqeve[address] [place], [place] [address]Dr. Tadeo Smyth SPEC GRAVITY >=1.030 Abnormal 1.005-<=1.[address] [place] [address] Comment on above: Performed By: #### Matthew FRANCISCO UMICRO ####[facility] Eyjuslbgjj[address] [place], [place] [address]Dr. Tadeo Smyth UA PROTEIN TRACE Normal NEGATIVE/ TRACE [facility] Comment on above: Performed By: #### Matthew FRANCISCO UMICRO ####[facility] Rmglqstxfh[address] [place], [place] [address]Dr. Tadeo Smyth UR MICRO IND INDICATED Normal [facility] Comment on above: Performed By: #### Matthew FRANCISCO UMICRO ####[facility] Wgaraospdl[address] [place], [place] [address]Dr. Tadeo Smyth Urobilinogen Qn (U) 0.2 {Benito'U}/dL Normal 0.2 - 1. 0 [facility] Comment on above: Performed By: #### Matthew FRANCISCO UMICRO ####[facility] Cirbnppylb[address] [place], [place] [address]Dr. aTdeo Smyth LACTATE/LACTIC ACIDon 2022 Lactate [Moles/Vol] 1.1 mmol/L Normal 0.4-1.9 [facility] Comment on above: Performed By: #### L ACT ####[facility] Paoxeeoqzx[address] [place] [address]Dr. Tadeo Smyth LIPASEon 09-18-2022 Lipase [Catalytic activity/Vol] 75.0 U/L Normal 73.0-393.0 [facility] Comment on above: Performed By: #### L IPA, CMP, VIJI ####[facility] [address]bxkfzbn[address] [place], [place] [address]Dr. Tadeo Smyth PROF 14(COMP METB)on 023 Albumin [Mass/Vol] 3.4 g/dL Normal 3.4-5.0 [facility] Comment on above: Performed By: #### L IPA, CMP, VIJI ####[facility] Xslddhdjjf[address] [place], [place] [address]Dr. Tadeo Smyth Albumin/Globulin [Mass ratio] 0.9 {ratio} Normal [facility] Comment on above: Performed By: #### L IPA, CMP, VIJI ####[facility] Akvsbcdejo[address] [place], [place] [address]Dr. Tadeo Smyth ALP [Catalytic activity/Vol] 164 U/L Critically high 46-116 [facility] Comment on above: Performed By: #### L IPA, CMP, VIJI ####[facility] Qqphhulwym3102 [place] [address]Dr. Tadeo Smyth ALT [Catalytic activity/Vol] 29 U/L Normal 14-59 [facility] Comment on above: Performed By: #### L IPA, CMP, VIJI ####[facility] Wiqpokfjqq33[address] [place] [address]Dr. Tadeo Smyth Anion gap [Moles/Vol] 12.3 mmol/L Normal [facility] Comment on above: Performed By: #### L IPA, CMP, VIJI ####[facility] Xvzvewqzsu[address] [place], [place] [address]Dr. Tadeo Smyth AST [Catalytic activity/Vol] 30 U/L Normal 15-37 [facility] Comment on above: Performed By: #### L IPA, CMP, VIJI ####[facility] Jmwigankhd9890 [place] [address]Dr. Tadeo Smyth Bilirubin [Mass/Vol] 0.3 mg/dL Normal 0.2-1.[address] [facility] Comment on above: Performed By: #### L IPA, CMP, VIJI ####[facility] Moebhufbop[address] [place] [address]Dr. Tadeo Smyth Calcium [Mass/Vol] 8.9 mg/dL Normal 8.5-10.[address] [facility] Comment on above: Performed By: #### L IPA, CMP, VIJI ####[facility] Bzyjhhijrp[address] [place], [place] [address]Dr. Tadeo Smyth Chloride [Moles/Vol] 103 mmol/L Normal 98-[address] [facility] Comment on above: Performed By: #### L IPA, CMP, VIJI ####[facility] Jowgeeagzg[address] [place], [place] [address]Dr. Tadeo Smyth CO2 [Moles/Vol] 27.8 mmol/L Normal 21.0-32.[address] [facility] Comment on above: Performed By: #### L IPA, CMP, VIJI ####[facility] Boxxefubov[address] [place], [place] [address]Dr. Tadeo Smyth Creatinine [Mass/Vol] 0.89 mg/dL Normal 0.55-1.[address] [facility] Comment on above: Performed By: #### L IPA, CMP, VIIJ ####[facility] Yfblcqmrfy[address] [place], [place] [address]Dr. Tadeo Smyth EGFR-AF BRUNEIAN >60 Normal >=[address] [facility] Comment on above: Performed By: #### L IPA, CMP, VIJI ####[facility] [address]ctqvqya[address] [place], [place] [address]Dr. Tadeo Smyth EGFR-NON AF BRUNEIAN >60 Normal >=[address] [facility] Comment on above: Performed By: #### L IPA, CMP, VIJI ####[facility] [address]yewnqxse[address] [place], [place] [address]Dr. Tadeo Smyth Globulin (S) [Mass/Vol] 3.9 g/dL Normal [facility] Comment on above: Performed By: #### L IPA, CMP, VIJI ####[facility] Mqjefophko[address] [place] [address]Dr. Tadeo Smyth Glucose [Mass/Vol] 96 mg/dL Normal 74-[address] [facility] Comment on above: Performed By: #### L IPA, CMP, VIJI ####[facility] Aalpplezqg6793 [place] [address]Dr. Tadeo Smyth Potassium [Moles/Vol] 4.1 mmol/L Normal 3.5-5.[address] [facility] Comment on above: Performed By: #### L IPA, CMP, VIJI ####[facility] Ytejqjyjvr2399 [place] [address]Dr. Tadeo Smyth Protein [Mass/Vol] 7.3 g/dL Normal 6.4-8.[address] [facility] Comment on above: Performed By: #### L IPA, CMP, VIJI ####[facility] [address]efbadef[address] [place], [place] [address]Dr. Tadeo Smyth Sodium [Moles/Vol] 139 mmol/L Normal 136-[address] [facility] Comment on above: Performed By: #### L IPA, CMP, VIJI ####[facility] Ltqpmejhbf[address] [place], [place] [address]Dr. Tadeo Smyth Urea nitrogen [Mass/Vol] 19.0 mg/dL Critically high 7.0-18.[address] [facility] Comment on above: Performed By: #### L IPA, CMP, VIJI ####[facility] [address]rrznxk[address] [place] [address]Dr. Tadeo Smyth Urea nitrogen/Creatinine [Mass ratio] 21.3 mg/mg Normal [facility] Comment on above: Performed By: #### L IPA, CMP, VIJI ####[facility] [address]teujyhgfw[address] [place] [address]Dr. Tadeo Smyth URINE MICROSCOPIC ONLYon BACTERIA TRACE Abnormal NONE SEEN [facility] Comment on above: Performed By: #### E KAROL FRACNISCO ####[facility] Jkdtcxdngi7937 [place] [address]Dr. Tadeo Smyth Bacteria identified Cx Nom (U) NOT INDICATED Normal [facility] Comment on above: Performed By: #### SANDRO MERCHANTRO ####[facility] Zoekfuedxl[address] [place], [place] [address]Dr. Tadeo Smyth CAST NONE SEEN Normal NONE SEEN [facility] Comment on above: Performed By: #### RANDI MERCHANTICRO ####[facility] Oaxxuqolbh[address] [place], [place] [address]Dr. Tadeo Smyth Crystals LM Nom (Urine sed) SEEN Abnormal NONE SEEN [facility] Comment on above: Performed By: #### RANDI MERCHANTICRO ####[facility] Imfqrlubyz99[address] [place], [place] [address]Dr. Tadeo Smyth Epithelial cells LM Ql (Urine sed) RARE Normal NONE SEEN /RARE [facility] Comment on above: Performed By: #### RANDI MERCHANTICRO ####[facility] Mkzeytetwq[address] [place], [place] [address]Dr. Tadeo Smyth MUCOUS TRACE Abnormal NONE SEEN [facility] Comment on above: Performed By: #### Matthew FRANCISCO ICRO ####[facility] Toidaieiwv[address] [place], [place] [address]Dr. Tadeo Smyth RBC 0-2 Normal 0-[address] [facility] Comment on above: Performed By: #### Matthew FRANCISCO UMICRO ####[facility] Fsnmzbejlk[address] [place], [place] [address]Dr. Tadeo Smyth WBC 0-2 Abnormal NONE SEEN [facility] Comment on above: Performed By: #### Matthew FRANCISCO UMICRO ####[facility] Kaccrwltpl[address] [place], [place] [address]Dr. Tadeo Smyth CBC AUTO DIFFon 09-14-2022 BASO # 0.0 103/ul Normal 0.0-0.[address] [facility] Comment on above: Performed By: #### C BC ####[facility] Tkfypkdehv[address] [place], [place] [address]Dr. Tadeo Smyth Basophils/100 WBC (Bld) 0.3 % Normal 0.2-2.[address] [facility] Comment on above: Performed By: #### C BC ####[facility] Wbhackzppl9[address] [place] [address]Dr. Tadeo Smyth EO # 0.2 103/ul Normal 0.0-0.[address] [facility] Comment on above: Performed By: #### C BC ####[facility] Awgacghbhe7446 [place] [address]Dr. Tadeo Smyth Eosinophils/100 WBC (Bld) 1.1 % Normal 0.9-7.[address] [facility] Comment on above: Performed By: #### C BC ####[facility] Wkalqmxvpc[address] [place], [place] [address]Dr. Tadeo Smyth Erythrocyte distribution width (RBC) [Ratio] 13.7 % Normal 11.0-15.[address] [facility] Comment on above: Performed By: #### C BC ####[facility] Cxftpsaqye510[address] [place], [place] [address]Dr. Tadeo Smyth Hematocrit (Bld) [Volume fraction] 41.3 % Normal 36.0-48.0 [facility] Comment on above: Performed By: #### C BC ####[facility] Sjdufdteih507[address] [place], [place] [address]Dr. Tadeo Smyth Hemoglobin (Bld) [Mass/Vol] 13.6 g/dL Normal 12.0-16.[address] [facility] Comment on above: Performed By: #### C BC ####[facility] Lnnfzvhylb[address] [place], [place] [address]Dr. Tadeo Smyth IG # 0.05 10e3/ul Critically high 0.00-0.[address] [facility] Comment on above: Performed By: #### C BC ####[facility] Aqlzssvqte[address] [place], [place] [address]Dr. Tadeo Smyth IG % 0.4 % Normal 0.0-0.[address] [facility] Comment on above: Performed By: #### C BC ####[facility] Asdzeccxoq224[address] [place], [place] [address]DrNeo Margotnicole Smyth LYMPH # 2.2 103/ul Normal 1.2-3.8 [facility] Comment on above: Performed By: #### C BC ####[facility] Wqcsepeqxc2239 [place] [address]Dr. Margotnicole Smyth Lymphocytes/100 WBC (Bld) 16.3 % Critically low 20.5-60.0 [facility] Comment on above: Performed By: #### C BC ####[facility] Wrextpckwv1968 [place] [address]DrNeo Smyth MANUAL DIFF REQ NO Normal [facility] Comment on above: Performed By: #### C BC ####[facility] Shxzxwucyq5256 [place] [phone]. Tadeo Smyth MCH (RBC) [Entitic mass] 28.9 pg Normal 26.7-34.[address] [facility] Comment on above: Performed By: #### C BC ####[facility] Eytazdetez810[address] [place], [place] [address]Dr. Tadeo Smyth MCHC (RBC) [Mass/Vol] 32.9 g/dL Normal 29.9-35.2 [facility] Comment on above: Performed By: #### C BC ####[facility] O[address]jxsvdrc06[address] [place], [place] [address]DrNeo Smyth MCV (RBC) [Entitic vol] 87.9 fL Normal 81.0-99.[address] [facility] Comment on above: Performed By: #### C BC ####[facility] Huvsjqlawg[address] [place], [place] [address]DrNeo Smyth MONO # 0.7 103/ul Normal 0.3-0.[address] [facility] Comment on above: Performed By: #### C BC ####[facility] Lkjsmpsepj[address] [place], [place] [address]DrNeo Smyth Monocytes/100 WBC (Bld) 5.1 % Normal 1.7-12.[address] [facility] Comment on above: Performed By: #### C BC ####[facility] Cquujuospn637[address] [place], [place] [address]DrNeo Smyth NEUT # 10.3 103/ul Critically high 1.4-6.5 [facility] Comment on above: Performed By: #### C BC ####[facility] Izpsqoaddq6542 [place] [address]Dr. Tadeo Smyth Neutrophils/100 WBC (Bld) 76.8 % Critically high 43.0-75.0 [facility] Comment on above: Performed By: #### C BC ####[facility] Ansuucaebp6160 [place] [address]Dr. Tadeo Smyth Platelet mean volume (Bld) [Entitic vol] 8.8 fL Critically low 9.5-13.5 [facility] Comment on above: Performed By: #### C BC ####[facility] Jykbttzxpv7762 [place] [address]Dr. Tadeo Haja PLT 438 103/ul Normal 150-450 [facility] Comment on above: Performed By: #### C BC ####[facility] Bgurizrusk870[address] [place], [place] [address]Dr. Tadeo Smyth RBC 4.70 106/ul Normal 4.20-5.40 [facility] Comment on above: Performed By: #### C BC ####[facility] Rxnqhyhwfr589[address] [place], [place] [address]Dr. Tadeo Smyth WBC 13.4 103/ul Critically high 4.0-11.0 [facility] Comment on above: Performed By: #### C BC ####[facility] Xzwvwuafad335[address] [place], [place] [address]Dr. Tadeo Haja ER URINE PROFILEon 3 Bilirubin Ql (U) Negative Normal NEGATIVE [facility] Comment on above: Performed By: #### SANDRO MERCHANTRO ####[facility] Lwzfnlrcmj4472 [place] [address]Dr. Tadeo Smyth Clarity (U) CLEAR Normal CLEAR [facility] Comment on above: Performed By: #### SANDRO MERCHANTRO ####[facility] Vdlzjxrzfr4840 [place] [phone]. Tadeo Smyth Color (U) LT. YELLOW Normal YELLOW [facility] Comment on above: Performed By: #### KAROL MERCHANT ####[facility] Bqbncvrybl8399 [place] [address]Dr. Tadeo ENG A micrscopic examina tion will be performed if indicated. Normal [facility] Comment on above: Performed By: #### KAROL MERCHANT ####[facility] Iumufurnxz3430 [place] [address]Dr. Tadeo Smyth Glucose Ql (U) Negative Normal NEGATIVE [facility] Comment on above: Performed By: #### KAROL MERCHANT ####[facility] Lkqovmuuxb575[address] [place], [place] [address]Dr. Tadeo Smyth Hemoglobin Ql (U) TRACE-INTACT Abnormal NEGATIVE [facility] Comment on above: Performed By: #### KAROL MERCHANT ####[facility] Ztqcymzroi246[address] [place], [place] [address]Dr. Tadeo Smyth Ketones Ql (U) Negative Normal NEGATIVE [facility] Comment on above: Performed By: #### KAROL MERCHANT ####[facility] Plowohntsu607[address] [place], [place] [address]Dr. Tadeo Smyth LEUKOCYTES Negative Normal NEGATIVE [facility] Comment on above: Performed By: #### KAROL MERCHANT ####[facility] Gluvprwuyx216[address] [place], [place] [address]Dr. Tadeo Smyth Nitrite Ql (U) Negative Normal NEGATIVE [facility] Comment on above: Performed By: #### KAROL MERCHANT ####[facility] Zdheveaiqo[address] [place], [place] [address]Dr. Tadeo Smyth pH (U) 6.5 [pH] Normal 5-[address] [facility] Comment on above: Performed By: #### KAROL MERCHANT ####[facility] Daluidglpe[address] [place], [place] [address]Dr. Tadeo Smyth SPEC GRAVITY 1.020 Normal 1.005-<=1.[address] [facility] Comment on above: Performed By: #### KAROL MERCHANT ####[facility] Iykasopspb[address] [place], [place] [id number]. Tadeo Smyth UA PROTEIN Negative Normal NEGATIVE/ TRACE [facility] Comment on above: Performed By: #### KAROL MERCHANT ####[facility] Vimesvetxi[address] [place] [address]Dr. Tadeo Smyth UR MICRO IND INDICATED Normal [facility] Comment on above: Performed By: #### KAROL MERCHANT ####[facility] Nwxemzqjdj1677 [place] [address]Dr. Tadeo Smyth Urobilinogen Qn (U) 0.2 {Benito'U}/dL Normal 0.2 - 1. [address] [facility] Comment on above: Performed By: #### KAROL MERCHANT ####[facility] Qzbalytkrv8936 [place] [address]Dr. Tadeo Smyth LIPASEon 09-14-2022 Lipase [Catalytic activity/Vol] 117.0 U/L Normal 73.0-393.0 [facility] Comment on above: Performed By: #### H STROPN, CMP, LIPA ####[facility] Bydqwmoxxo8135 [place] [address]Dr. Tadeo Smyth PROF 14(COMP METB)on 023 Albumin [Mass/Vol] 3.5 g/dL Normal 3.4-5.0 [facility] Comment on above: Performed By: #### H STROPN, CMP, LIPA ####[facility] Ockcgnwblr9023 [place] [address]Dr. Tadeo Smyth Albumin/Globulin [Mass ratio] 0.8 {ratio} Normal [facility] Comment on above: Performed By: #### H STROPN, CMP, LIPA ####[facility] Lkkdmydnyu6778 [place] [address]Dr. Tadeo Smyth ALP [Catalytic activity/Vol] 180 U/L Critically high 46-[address] [facility] Comment on above: Performed By: #### H STROPN, CMP, LIPA ####[facility] Bbhfupajjp1741 [place] [address]Dr. Tadeo Smyth ALT [Catalytic activity/Vol] 25 U/L Normal 14-[address] [facility] Comment on above: Performed By: #### H STROPN, CMP, LIPA ####[facility] Ledpvmiwdc1704 [place] [address]Dr. Tadeo Smyth Anion gap [Moles/Vol] 14.4 mmol/L Normal [facility] Comment on above: Performed By: #### H STROPN, CMP, LIPA ####[facility] Pvbkwlayum5786 [place] [address]Dr. Tadeo Smyth AST [Catalytic activity/Vol] 14 U/L Critically low 15-[address] [facility] Comment on above: Performed By: #### H STROPN, CMP, LIPA ####[facility] Kddocozgun4691 [place] [address]Dr. Tadeo Smyth Bilirubin [Mass/Vol] 0.2 mg/dL Normal 0.2-1.[address] [facility] Comment on above: Performed By: #### H STROPN, CMP, LIPA ####[facility] I[address]tvvqmns[address] [place], [place] [address]Dr. Tadeo Smyth Calcium [Mass/Vol] 9.4 mg/dL Normal 8.5-10.[address] [facility] Comment on above: Performed By: #### H STROPN, CMP, LIPA ####[facility] Tdfiwztqis4469 [place] [address]Dr. Tadeo Smyth Chloride [Moles/Vol] 107 mmol/L Normal 98-[address] [facility] Comment on above: Performed By: #### H STROPN, CMP, LIPA ####[facility] Blvzooiaqu5468 [place] [address]Dr. Tadeo Smyth CO2 [Moles/Vol] 23.9 mmol/L Normal 21.0-32.[address] [facility] Comment on above: Performed By: #### H STROPN, CMP, LIPA ####[facility] Ykwhrxgvpr9728 [place] [address]Dr. Tadeo mSyth Creatinine [Mass/Vol] 0.91 mg/dL Normal 0.55-1.[address] [facility] Comment on above: Performed By: #### H STROPN, CMP, LIPA ####[facility] Xirgmxngmv5732 [place] [phone]. Tadeo Smyth EGFR-AF BRUNEIAN >60 Normal >=[address] [facility] Comment on above: Performed By: #### H STROPN, CMP, LIPA ####[facility] Jqxcfdmizm6839 [place] [address]Dr. Tadeo Smyth EGFR-NON AF BRUNEIAN >60 Normal >=[address] [facility] Comment on above: Performed By: #### H STROPN, CMP, LIPA ####[facility] Ibpkywgcao4072 [place] [address]Dr. Tadeo Smyth Globulin (S) [Mass/Vol] 4.2 g/dL Normal [facility] Comment on above: Performed By: #### H STROPN, CMP, LIPA ####[facility] Ydmcaggsha4376 [place] [address]Dr. Tadeo Smyth Glucose [Mass/Vol] 101 mg/dL Normal 74-[address] [facility] Comment on above: Performed By: #### H STROPN, CMP, LIPA ####[facility] Oajuymguzy6645 [place] [address]Dr. Tadeo Smyth Potassium [Moles/Vol] 3.3 mmol/L Critically low 3.5-5.[address] [facility] Comment on above: Performed By: #### H STROPN, CMP, LIPA ####[facility] Dxpwisjdvw9125 [place] [address]Dr. Tadeo Smyth Protein [Mass/Vol] 7.7 g/dL Normal 6.4-8.[address] [facility] Comment on above: Performed By: #### H STROPN, CMP, LIPA ####[facility] Cvtybrvpuo0868 [place] [address]Dr. Tadeo Smyth Sodium [Moles/Vol] 142 mmol/L Normal 136-[address] [facility] Comment on above: Performed By: #### H STROPN, CMP, LIPA ####[facility] Nwsvokvvzn1121 [place] [address]Dr. Tadeo Smyth Urea nitrogen [Mass/Vol] 17.0 mg/dL Normal 7.0-18.[address] [facility] Comment on above: Performed By: #### H DIANN FIGUEROA, LIPA ####[facility] Fxlcikycuf0702 [place] [address]Dr. Tadeo Smyth Urea nitrogen/Creatinine [Mass ratio] 18.7 mg/mg Normal [facility] Comment on above: Performed By: #### H HENRY CMP, LIPA ####[facility] Sjjjjgxfix7972 [place] [address]Dr. Tadeo Smyth TROPONIN, HIGH SENSITIVITYon 09-14-2022 HSTROP 46.6 pg/mL Normal 4.0-51.[address] [facility] Comment on above: Result Comment: CUT- OFF POINTS HAVE BEEN ESTABLISHED BASED ON THE FOURTH UNIVERSAL DEFINITIONS OF MYOCARDIALINFARCTION. THE UPPER REFERENCE LIMIT (URL) OF TROPONIN, DEFINED THE 99TH PERCENTILE OFcTnI DISTRIBUTION IN A REFERENCE POPULATION, HAS BEEN CONFIRMED THE DECISION THRESHOLDFOR NE DIAGNOSIS. Performed By: #### H DIANN FIGUEROA, LIPA ####[facility] Jhtdpxyypv3596 [place] [address]Dr. Tadeo Smyth URINE MICROSCOPIC ONLYon BACTERIA NONE SEEN Normal NONE SEEN [facility] Comment on above: Performed By: #### KAROL MERCHANT ####[facility] Yemgvfbgqs9833 [place] [address]Dr. Tadeo Smyth Bacteria identified Cx Nom (U) NOT INDICATED Normal [facility] Comment on above: Performed By: #### KAROL MERCHANT ####[facility] Gvdaiymsfe7102 [place] [address]Dr. Tadeo Smyth CAST NONE SEEN Normal NONE SEEN [facility] Comment on above: Performed By: #### SANDRO MERCHANTRO ####[facility] Aiifnhkaev8447 [place] [address]Dr. Tadeo Smyth Crystals LM Nom (Urine sed) NONE SEEN Normal NONE SEEN [facility] Comment on above: Performed By: #### SANDRO MERCHANTRO ####[facility] Yjzeoomnna8105 [place] [address]Dr. Tadeo Smyth Epithelial cells LM Ql (Urine sed) FEW Abnormal NONE SEEN /RARE [facility] Comment on above: Performed By: #### E SANDRO FRANCISCORO ####[facility] Wardorswxo6065 [place] [address]Dr. Tadeo Smyth MUCOUS MODERATE Abnormal NONE SEEN [facility] Comment on above: Performed By: #### E RANDI FRANCISCOICRO ####[facility] Wogorpsurk9[address] [place] [phone]. Tadeo Smyth RBC 0-2 Normal 0-2 [facility] Comment on above: Performed By: #### E SANDRO FRANCISCORO ####[facility] Jcaolenuaa5265 [place] [address]Dr. Tadeo Smyth WBC NONE SEEN Normal NONE SEEN [facility] Comment on above: Performed By: #### SANDRO MERCHANTRO ####[facility] Cxczusxwso5534 [place] [address]Dr. Tadeo Smyth XR ABD FLAT UP_PA Kasey 09-14 XR ABD FLAT UP_PA CH Normal [facility] VC COMP CONSULTATIONon 09-06 VC COMP CONSULTATION Normal [facility] VC VENOUS REFLUX MACARIO LMTon 0 09-06-2022 VC VENOUS REFLUX MACARIO LMT Normal [facility] XR KUB 1 VIEWon 08-18-2022 XR KUB 1 VIEW Normal [facility] US RUBENS DOP LEG RTon 08-11-20 US RUBENS DOP LEG RT Normal [facility] Provider Letteron 08-10-2022 Provider Letter (Inserted Image. Kristin ble to display) August 10, 2022 CONSTANTINO CARDOSO [address] [place] [address] CONSTANTINO CARDOSO 1970 Dear Constantino, We have been trying to reach you with no success. It is important that you return our call regarding your referral. Thank you for your prompt attention to this matter. Sincerely, [facility] Normal [facility] AMYLASEon 08-08-2022 Amylase [Catalytic activity/Vol] 64 U/L Normal 25-[address] [facility] Comment on above: Performed By: #### C MP, VIJI, LIPA, CMADM ####[facility] Hplshaknug0991 [place] [phone]. Margotnicole Haja CARDIAC NORA ADMITon 022 CK [Catalytic activity/Vol] 127 U/L Normal 26-[address] [facility] Comment on above: Performed By: #### C MP, IVJI, LIPA, CMADM ####[facility] Rlogmuuxjj2977 [place] [address]Dr. Tadeo Smyth CK.MB [Mass/Vol] 1.71 ng/mL Normal <=3.[address] [facility] Comment on above: Performed By: #### C MP, VIJI, LIPA, CMADM ####[facility] Atograwwkq4389 [place] [address]Dr. Tadeo Smyth HSTROP 36.7 pg/mL Normal 4.0-51.[address] [facility] Comment on above: Result Comment: CUT- OFF POINTS HAVE BEEN ESTABLISHED BASED ON THE FOURTH UNIVERSAL DEFINITIONS OF MYOCARDIALINFARCTION. THE UPPER REFERENCE LIMIT (URL) OF TROPONIN, DEFINED THE 99TH PERCENTILE OFcTnI DISTRIBUTION IN A REFERENCE POPULATION, HAS BEEN CONFIRMED THE DECISION THRESHOLDFOR NE DIAGNOSIS. Performed By: #### C MP, VIJI, LIPA, CMADM ####[facility] Aupvcacirz5539 [place] [address]Dr. Tadeo Smyth AAKASH 23 ng/mL Normal 9-[address] [facility] Comment on above: Performed By: #### C MP, VIJI, LIPA, CMADM ####[facility] Qtvqrlwmie2758 [place] [address]Dr. Tadeo Smyth CBC AUTO DIFFon 08-08-2022 BASO # 0.0 103/ul Normal 0.0-0.[address] [facility] Comment on above: Performed By: #### C BC ####[facility] Mszctmgvxw1668 [place] [address]Dr. Taedo Smyth Basophils/100 WBC (Bld) 0.4 % Normal 0.2-2.0 [facility] Comment on above: Performed By: #### C BC ####[facility] Kdbrvjqloc5562 [place] [address]Dr. Tadeo Smyth EO # 0.1 103/ul Normal 0.0-0.[address] [facility] Comment on above: Performed By: #### C BC ####[facility] Mcfbilcrvs[address] [place], [place] [address]Dr. Margotnicole Smyth Eosinophils/100 WBC (Bld) 1.5 % Normal 0.9-7.[address] [facility] Comment on above: Performed By: #### C BC ####[facility] Rqsthocoxg[address] [place], [place] [address]Dr. Tadeo Smyth Erythrocyte distribution width (RBC) [Ratio] 13.5 % Normal 11.0-15.[address] [facility] Comment on above: Performed By: #### C BC ####[facility] Myceyajrmh[address] [place], [place] [address]Dr. Tadeo Smyth Hematocrit (Bld) [Volume fraction] 37.0 % Normal 36.0-48.[address] [facility] Comment on above: Performed By: #### C BC ####[facility] Pdmxkdevqf430[address] [place], [place] [address]Dr. Margotnicole Smyth Hemoglobin (Bld) [Mass/Vol] 12.0 g/dL Normal 12.0-16.[address] [facility] Comment on above: Performed By: #### C BC ####[facility] Xgaytflhpd[address] [place], [place] [address]Dr. Tadeo Smyth IG # 0.02 10e3/ul Normal 0.00-0.[address] [facility] Comment on above: Performed By: #### C BC ####[facility] Zzvytvrvdf[address] [place], [place] [address]Dr. Tadeo Smyth IG % 0.3 % Normal 0.0-0.[address] [facility] Comment on above: Performed By: #### C BC ####[facility] Akfgkavvkt8[address] [place], [place] [address]DrNeo Smyth LYMPH # 2.0 103/ul Normal 1.2-3.[address] [facility] Comment on above: Performed By: #### C BC ####[facility] Dmiqavmxur022[address] [place], [place] [address]Dr. Tadeo Smyth Lymphocytes/100 WBC (Bld) 27.9 % Normal 20.5-60.[address] [facility] Comment on above: Performed By: #### C BC ####[facility] Aoicvxvyot2107 [place] [address]DrNeo Smyth MANUAL DIFF REQ NO Normal [facility] Comment on above: Performed By: #### C BC ####[facility] Mxstbmsxni5759 [place] [address]Dr. Tadeo Smyth MCH (RBC) [Entitic mass] 28.9 pg Normal 26.7-34.[address] [facility] Comment on above: Performed By: #### C BC ####[facility] Joffedjyeq[address] [place], [place] [address]DrNeo Smyth MCHC (RBC) [Mass/Vol] 32.4 g/dL Normal 29.9-35.[address] [facility] Comment on above: Performed By: #### C BC ####[facility] L[address]vttvfbm[address] [place], [place] [address]DrNeo Smyth MCV (RBC) [Entitic vol] 89.2 fL Normal 81.0-99.[address] [facility] Comment on above: Performed By: #### C BC ####[facility] Bjpmevhnvd56[address] [place], [place] [address]DrNeo Smyth MONO # 0.5 103/ul Normal 0.3-0.[address] [facility] Comment on above: Performed By: #### C BC ####[facility] Njphcldrjh[address] [place], [place] [address]DrNeo Smyth Monocytes/100 WBC (Bld) 6.7 % Normal 1.7-12.[address] [facility] Comment on above: Performed By: #### C BC ####[facility] Z[address]zjdbmvuv[address] [place], [place] [address]DrNeo Smyth NEUT # 4.5 103/ul Normal 1.4-6.[address] [facility] Comment on above: Performed By: #### C BC ####[facility] Vxpdyyluxd74[address] [place], [place] [address]DrNeo Smyth Neutrophils/100 WBC (Bld) 63.2 % Normal 43.0-75.[address] [facility] Comment on above: Performed By: #### C BC ####[facility] Hmrssgouso[address] [place], [place] [address]Dr. Tadeo Smyth Platelet mean volume (Bld) [Entitic vol] 9.0 fL Critically low 9.5-13.[address] [facility] Comment on above: Performed By: #### C BC ####[facility] Twbrcoarxw7[address] [place], [place] [address]Dr. Tadeo Smyth PLT 382 103/ul Normal 150-[address] [facility] Comment on above: Performed By: #### C BC ####[facility] Dulrrbbjgr213[address] [place], [place] [address]Dr. Tadeo Smyth RBC 4.15 106/ul Critically low 4.20-5.[address] [facility] Comment on above: Performed By: #### C BC ####[facility] Zivimixikm[address] [place], [place] [address]Dr. Tadeo Haja WBC 7.1 103/ul Normal 4.0-11.[address] [facility] Comment on above: Performed By: #### C BC ####[facility] Wcrjupazcu[address] [place], [place] [address]Dr. Tadeo Smyth CT ABD/PELV W CONon 08-08-[address] ABD/PELV W CON Normal [facility] ER URINE PROFILEon 2 Bilirubin Ql (U) Negative Normal NEGATIVE [facility] Comment on above: Performed By: #### KAROL MERCHANT ####[facility] Hrfefjxyta[address] [place], [place] [address]Dr. Margotnicole Smyth Clarity (U) CLEAR Normal CLEAR [facility] Comment on above: Performed By: #### KAROL MERCHANT ####[facility] [address]pzhfjmbfg[address] [place], [place] [address]Dr. Tadeo Smyth Color (U) YELLOW Normal YELLOW [facility] Comment on above: Performed By: #### KAROL MERCHANT ####[facility] Pykidsojft9[address] [place], [place] [id number]. Tadeo ENG A micrscopic examina tion will be performed if indicated. Normal [facility] Comment on above: Performed By: #### KAROL MERCHANT ####[facility] [address]zbprxjb9[address] [place], [place] [address]Dr. Tadeo Smyth Glucose Ql (U) Negative Normal NEGATIVE [facility] Comment on above: Performed By: #### KAROL MERCHANT ####[facility] [address]bxqrgohpx[address] [place] [address]Dr. Tadeo Smyth Hemoglobin Ql (U) TRACE-LYSED Abnormal NEGATIVE [facility] Comment on above: Performed By: #### KAROL MERCHANT ####[facility] M[address]fbsduap[address] [place], [place] [address]Dr. Tadeo Smyth Ketones Ql (U) TRACE Abnormal NEGATIVE [facility] Comment on above: Performed By: #### KAROL MERCHANT ####[facility] Uddiabydld[address] [place], [place] [address]Dr. Tadeo Smyth LEUKOCYTES Negative Normal NEGATIVE [facility] Comment on above: Performed By: #### KAROL MERCHANT ####[facility] Atyuzfwwnk524[address] [place], [place] [address]Dr. Tadeo Smyth Nitrite Ql (U) Negative Normal NEGATIVE [facility] Comment on above: Performed By: #### KAROL MERCHANT ####[facility] Wbymdcixyd[address] [place], [place] [address]Dr. Tadeo Smyth pH (U) 6.0 [pH] Normal 5-[address] [facility] Comment on above: Performed By: #### SANDRO MERCHANTRO ####[facility] Ebwconihcz[address] [place], [place] [address]Dr. Tadeo Smyth SPEC GRAVITY >=1.030 Abnormal 1.005-<=1.[address] [facility] Comment on above: Performed By: #### KAROL MERCHANT ####[facility] Yazvrfbcku[address] [place], [place] [address]Dr. Tadeo Smyth UA PROTEIN TRACE Normal NEGATIVE/ TRACE [facility] Comment on above: Performed By: #### RANDI MERCHANTICRO ####[facility] [address] [place] [address]Dr. Tadeo Smyth UR MICRO IND INDICATED Normal [facility] Comment on above: Performed By: #### RANDI MERCHANTICRO ####[facility] Xxirjyvczj32[address] [place] [address]Dr. Tadeo Smyth Urobilinogen Qn (U) 0.2 {Benito'U}/dL Normal 0.2 - 1. [address] [facility] Comment on above: Performed By: #### SANDRO MERCHANTRO ####[facility] F[address]riangtp[address] [place] [address]Dr. Tadeo Smyth LACTATE/LACTIC ACIDon 2021 Lactate [Moles/Vol] 1.3 mmol/L Normal 0.4-1.[address] [facility] Comment on above: Performed By: #### L ACT ####[facility] Qzfyybizjz[address] [place], [place] [address]Dr. Tadeo Smyth LIPASEon 08-08-2022 Lipase [Catalytic activity/Vol] 120.0 U/L Normal 73.0-393.[address] [facility] Comment on above: Performed By: #### C MP, VIJI, LIPA, CMADM ####[facility] [address]seinvo[address] [place] [address]Dr. Tadeo Smyth PROF 14(COMP METB)on 022 Albumin [Mass/Vol] 3.8 g/dL Normal 3.4-5.[address] [facility] Comment on above: Performed By: #### C MP, VIJI, LIPA, CMADM ####[facility] Ykvqndkjtc35[address] [place] [address]Dr. Tadeo Smyth Albumin/Globulin [Mass ratio] 1.1 {ratio} Normal [facility] Comment on above: Performed By: #### C MP, VIJI, LIPA, CMADM ####[facility] [address]renxqx[address] [place] [address]Dr. Tadeo Smyth ALP [Catalytic activity/Vol] 145 U/L Critically high 46-116 [facility] Comment on above: Performed By: #### C MP, VIJI, LIPA, CMADM ####[facility] Coczvzyflb[address] [place] [address]Dr. Tadeo Smyth ALT [Catalytic activity/Vol] 30 U/L Normal 14-59 [facility] Comment on above: Performed By: #### C MP, VIJI, LIPA, CMADM ####[facility] Qbtmvyyqpj6[address] [place] [address]Dr. Tadeo Smyth Anion gap [Moles/Vol] 11.5 mmol/L Normal [facility] Comment on above: Performed By: #### C MP, VIJI, LIPA, CMADM ####[facility] Sbnnosvfos[address] [place], [place] [address]Dr. Tadeo Smyth AST [Catalytic activity/Vol] 17 U/L Normal 15-37 [facility] Comment on above: Performed By: #### C MP, VIJI, LIPA, CMADM ####[facility] Guqudqposp66[address] [place] [address]Dr. Tadeo Smyth Bilirubin [Mass/Vol] 0.1 mg/dL Critically low 0.2-1.[address] [facility] Comment on above: Performed By: #### C MP, VIJI, LIPA, CMADM ####[facility] Jqlsvllkcn[address] [place] [address]Dr. Tadeo Smyth Calcium [Mass/Vol] 8.9 mg/dL Normal 8.5-10.[address] [facility] Comment on above: Performed By: #### C MP, VIJI, LIPA, CMADM ####[facility] Cgmmcfvfqj22[address] [place] [address]Dr. Tadeo Smyth Chloride [Moles/Vol] 104 mmol/L Normal 98-[address] [facility] Comment on above: Performed By: #### C MP, VIJI, LIPA, CMADM ####[facility] Rrtmwkouwf4[address] [place] [address]Dr. Tadeo Smyth CO2 [Moles/Vol] 27.2 mmol/L Normal 21.0-32.[address] [facility] Comment on above: Performed By: #### C MP, VIJI, LIPA, CMADM ####[facility] Vlulpdlgzq[address] [place] [address]Dr. Tadeo Smyth Creatinine [Mass/Vol] 0.90 mg/dL Normal 0.55-1.[address] [facility] Comment on above: Performed By: #### C MP, VIJI, LIPA, CMADM ####[facility] Llzpbrfdjr68[address] [place] [address]Dr. Tadeo Smyth EGFR-AF BRUNEIAN >60 Normal >=[address] [facility] Comment on above: Performed By: #### C MP, VIJI, LIPA, CMADM ####[facility] Iweaxeszkp9[address] [place], [place] [address]Dr. Tadeo Smyth EGFR-NON AF BRUNEIAN >60 Normal >=[address] [facility] Comment on above: Performed By: #### C MP, VIJI, LIPA, CMADM ####[facility] Lwaukhisen[address] [place], [place] [address]Dr. Tadeo Smyth Globulin (S) [Mass/Vol] 3.5 g/dL Normal [facility] Comment on above: Performed By: #### C MP, VIJI, LIPA, CMADM ####[facility] Fhstwnyjog[address] [place], [place] [address]Dr. Tadeo Smyth Glucose [Mass/Vol] 98 mg/dL Normal 74-[address] [facility] Comment on above: Performed By: #### C MP, VIJI, LIPA, CMADM ####[facility] Vgcrqnfevt[address] [place], [place] [address]Dr. Tadeo Smyth Potassium [Moles/Vol] 3.7 mmol/L Normal 3.5-5.[address] [facility] Comment on above: Performed By: #### C MP, VIJI, LIPA, CMADM ####[facility] Kfjtsqyksw[address] [place], [place] [address]Dr. Tadeo Smyth Protein [Mass/Vol] 7.3 g/dL Normal 6.4-8.[address] [facility] Comment on above: Performed By: #### C MP, VIJI, LIPA, CMADM ####[facility] Hdawvgrrke[address] [place] [address]Dr. Tadeo Smyth Sodium [Moles/Vol] 139 mmol/L Normal 136-[address] [facility] Comment on above: Performed By: #### C JOSE, VJII, LIPA, CMADM ####[facility] Azcvkdbrgw4[address] [place] [address]Dr. Tadeo Smyth Urea nitrogen [Mass/Vol] 25.0 mg/dL Critically high 7.0-18.[address] [facility] Comment on above: Performed By: #### C MP, VIJI, LIPA, CMADM ####[facility] Dwxpifbopr17[address] [place] [address]Dr. Tadeo Smyth Urea nitrogen/Creatinine [Mass ratio] 27.8 mg/mg Normal [facility] Comment on above: Performed By: #### C JOSE, VIJI, LIPA, CMADM ####[facility] Nqedighzmd[address] [place] [address]Dr. Tadeo Smyth URINE MICROSCOPIC ONLYon BACTERIA NONE SEEN Normal NONE SEEN [facility] Comment on above: Performed By: #### SANDRO MERCHANTRO ####[facility] [address]jyfpnp[address] [place], [place] [address]Dr. Tadeo Smyth Bacteria identified Cx Nom (U) NOT INDICATED Normal [facility] Comment on above: Performed By: #### SANDRO MERCHANTRO ####[facility] Laxdszolpc[address] [place] [address]Dr. Tadeo Smyth CAST NONE SEEN Normal NONE SEEN [facility] Comment on above: Performed By: #### Matthew FRANCISCO UMICRO ####[facility] Hoyluaornv[address] [place] [address]Dr. Tadeo Smyth Crystals LM Nom (Urine sed) NONE SEEN Normal NONE SEEN [facility] Comment on above: Performed By: #### Matthew FRANCISCO UMICRO ####[facility] Otmjxusfes65[address] [place] [address]Dr. Tadeo Smyth Epithelial cells LM Ql (Urine sed) FEW Abnormal NONE SEEN /RARE [facility] Comment on above: Performed By: #### KAROL MERCHANT ####[facility] Aiodrbtmqu9377 [place], [place] [address]Me. Tadeo Smyth MUCOUS NONE SEEN Normal NONE SEEN [facility] Comment on above: Performed By: #### KAROL MERCHANT ####[facility] Puifhfmvcm5053 [place], [place] [address]Pr. Tadeo Smyth RBC 2-5 Abnormal 0-[address] [facility] Comment on above: Performed By: #### KAROL MERCHANT ####[facility] Wqoidzvsmd3349 [place], [place] [address]Nt. Tadeo Smyth WBC NONE SEEN Normal NONE SEEN [facility] Comment on above: Performed By: #### KAROL MERCHANT ####[facility] Irrkeaxolo5377 [place], [place] [address]Lo. Tadeo Smyth Gastroenterology Office/Clin ic Noteon 07-24-2022 [...] Nunez to record this visit. JOSE FRANCISCO marketing project specialist and provider reviewed before signing. JOSE [...] 10 mg= (more content not included)... Normal [facility] Comment on above: Result Comment: Elec tronically Signed By: Agata Nunes\.br\Date and Time Signed: 07/22/22 16:25 EST\.br\Electronically Co-Signed By: Anai REAGAN MD\.br\Date and Time Co-Signed: 07/24/22 15:06 EST AMYLASEon 07-21-2022 Amylase [Catalytic activity/Vol] 49 U/L Normal 25-[address] [facility] Comment on above: Performed By: #### L ISABEL, VIJI, CMP ####[facility] Qduxmwlmdi6[address] [place] [address]Dr. Tadeo Smyth CBC AUTO DIFFon 07-21-2022 BASO # 0.0 103/ul Normal 0.0-0.[address] [facility] Comment on above: Performed By: #### C BC ####[facility] Xiawohmduh[address] [place], [place] [address]Dr. Tadeo Smyth Basophils/100 WBC (Bld) 0.6 % Normal 0.2-2.[address] [facility] Comment on above: Performed By: #### C BC ####[facility] Ihzxorswjz[address] [place], [place] [address]Dr. Tadeo Smyth EO # 0.2 103/ul Normal 0.0-0.[address] [facility] Comment on above: Performed By: #### C BC ####[facility] Lbpitkppzd[address] [place], [place] [address]Dr. Tadeo Smyth Eosinophils/100 WBC (Bld) 3.1 % Normal 0.9-7.[address] [facility] Comment on above: Performed By: #### C BC ####[facility] Swsplygjrm[address] [place], [place] [address]Dr. Tadeo Smyth Erythrocyte distribution width (RBC) [Ratio] 13.2 % Normal 11.0-15.[address] [facility] Comment on above: Performed By: #### C BC ####[facility] Naynxdebxk404[address] [place], [place] [address]Dr. Tadeo Smyth Hematocrit (Bld) [Volume fraction] 35.7 % Critically low 36.0-48.[address] [facility] Comment on above: Performed By: #### C BC ####[facility] Kpelcvznlf[address] [place], [place] [address]Dr. Tadeo Smyth Hemoglobin (Bld) [Mass/Vol] 11.6 g/dL Critically low 12.0-16.[address] [facility] Comment on above: Performed By: #### C BC ####[facility] Pvxamwgkjl8557 [place] [id number]. Tadeo Smyth IG # 0.01 10e3/ul Normal 0.00-0.[address] [facility] Comment on above: Performed By: #### C BC ####[facility] Smtmtbbjcm6506 [place] [address]Dr. Tadeo Smyth IG % 0.2 % Normal 0.0-0.[address] [facility] Comment on above: Performed By: #### C BC ####[facility] Tykrandylh9422 [place] [address]Dr. Tadeo Smyth LYMPH # 1.9 103/ul Normal 1.2-3.[address] [facility] Comment on above: Performed By: #### C BC ####[facility] Pepvfqyovp1415 [place] [address]Dr. Margotnicole Smyth Lymphocytes/100 WBC (Bld) 34.8 % Normal 20.5-60.[address] [facility] Comment on above: Performed By: #### C BC ####[facility] Wixozsmwxd5922 [place] [address]Dr. Tadeo Smyth MANUAL DIFF REQ NO Normal [facility] Comment on above: Performed By: #### C BC ####[facility] Bhipfikora[address] [place] [address]Dr. Tadeo Smyth MCH (RBC) [Entitic mass] 29.1 pg Normal 26.7-34.[address] [facility] Comment on above: Performed By: #### C BC ####[facility] Zrwtqzsejm1240 [place] [address]Dr. Tadeo Smyth MCHC (RBC) [Mass/Vol] 32.5 g/dL Normal 29.9-35.[address] [facility] Comment on above: Performed By: #### C BC ####[facility] Mxvyvgsaaj7527 [place] [address]Dr. Tadeo Smyth MCV (RBC) [Entitic vol] 89.7 fL Normal 81.0-99.[address] [facility] Comment on above: Performed By: #### C BC ####[facility] Ntrnggokuc2917 [place] [address]Dr. Tadeo Smyth MONO # 0.3 103/ul Normal 0.3-0.[address] [facility] Comment on above: Performed By: #### C BC ####[facility] Srriwlbxuv7912 [place] [address]Dr. Tadeo Smyth Monocytes/100 WBC (Bld) 6.1 % Normal 1.7-12.[address] [facility] Comment on above: Performed By: #### C BC ####[facility] Quhnqpphkd[address] [place], [place] [address]Dr. Tadeo Smyth NEUT # 3.0 103/ul Normal 1.4-6.[address] [facility] Comment on above: Performed By: #### C BC ####[facility] Frylhedjej[address] [place], [place] [address]Dr. Tadeo Smyth Neutrophils/100 WBC (Bld) 55.2 % Normal 43.0-75.[address] [facility] Comment on above: Performed By: #### C BC ####[facility] Gbnxxjowjk[address] [place], [place] [address]Dr. Tadeo Smyth Platelet mean volume (Bld) [Entitic vol] 9.0 fL Critically low 9.5-13.[address] [facility] Comment on above: Performed By: #### C BC ####[facility] Hnvmplzqwl[address] [place], [place] [address]Dr. Tadeo Smyth PLT 358 103/ul Normal 150-[address] [facility] Comment on above: Performed By: #### C BC ####[facility] Kovrkmmqva[address] [place], [place] [address]Dr. Tadeo Smyth RBC 3.98 106/ul Critically low 4.20-5.[address] [facility] Comment on above: Performed By: #### C BC ####[facility] [address]fwhwmbxfq[address] [place], [place] [address]Dr. Tadeo Smyth WBC 5.4 103/ul Normal 4.0-11.[address] [facility] Comment on above: Performed By: #### C BC ####[facility] Awpkjcsfjo[address] [place], [place] [address]Dr. Tadeo Smyth LIPASEon 11-16-2022 Lipase [Catalytic activity/Vol] 54.0 U/L Critically low 73.0-393.[address] [facility] Comment on above: Performed By: #### L VIJI HALL, CMP ####[facility] Upukhzljtx7[address] [place] [address]Dr. Tadeo Smyth PROF 14(COMP METB)on 022 Albumin [Mass/Vol] 3.5 g/dL Normal 3.4-5.0 [facility] Comment on above: Performed By: #### L VIJI HALL, CMP ####[facility] Ugassjmolh6674 [place] [address]Dr. Tadeo Smyth Albumin/Globulin [Mass ratio] 0.9 {ratio} Normal [facility] Comment on above: Performed By: #### L VIJI HALL, CMP ####[facility] Tvncyypwko5689 [place] [address]Dr. Tadeo Smyth ALP [Catalytic activity/Vol] 127 U/L Critically high 46-[address] [facility] Comment on above: Performed By: #### L VIJI HALL, CMP ####[facility] Ckeypnnblm7805 [place] [address]Dr. Tadeo Smyth ALT [Catalytic activity/Vol] 16 U/L Normal 14-[address] [facility] Comment on above: Performed By: #### L VIJI HALL, CMP ####[facility] Vpinlixepo2853 [place] [address]Dr. Tadeo Smyth Anion gap [Moles/Vol] 10.6 mmol/L Normal [facility] Comment on above: Performed By: #### L VIJI HALL, CMP ####[facility] Bylqsjlswj5344 [place] [id number]. Tadeo Smyth AST [Catalytic activity/Vol] 16 U/L Normal 15-37 [facility] Comment on above: Performed By: #### L VIJI HALL, CMP ####[facility] Ybwfyzjlzy6182 [place] [address]Dr. Tadeo Smyth Bilirubin [Mass/Vol] 0.3 mg/dL Normal 0.2-1.[address] [facility] Comment on above: Performed By: #### L VIJI HALL, CMP ####[facility] Sgkxdjknmz0946 [place] [address]Dr. Tadeo Smyth Calcium [Mass/Vol] 9.1 mg/dL Normal 8.5-10.[address] [facility] Comment on above: Performed By: #### L VIJI HALL, CMP ####[facility] Lstqzsqjgn[address] [place], [place] [address]Dr. Tadeo Smyth Chloride [Moles/Vol] 104 mmol/L Normal 98-[address] [facility] Comment on above: Performed By: #### L VIJI HALL, CMP ####[facility] Ljiolndaqs[address] [place], [place] [address]Dr. Tadeo Smyth CO2 [Moles/Vol] 28.0 mmol/L Normal 21.0-32.[address] [facility] Comment on above: Performed By: #### L VIJI HALL, CMP ####[facility] Nmkixgcryv[address] [place], [place] [address]Dr. Tadeo Smyth Creatinine [Mass/Vol] 0.96 mg/dL Normal 0.55-1.[address] [facility] Comment on above: Performed By: #### L VIJI HALL, CMP ####[facility] Hzelroiesv84[address] [place], [place] [address]Dr. Tadeo Smyth EGFR-AF BRUNEIAN >60 Normal >=[address] [facility] Comment on above: Performed By: #### L VIJI HALL, CMP ####[facility] Ulajsxnjvj[address] [place], [place] [address]Dr. Tadeo Smyth EGFR-NON AF BRUNEIAN >60 Normal >=[address] [facility] Comment on above: Performed By: #### L VIJI HALL, CMP ####[facility] Rupnmbsfkv[address] [place], [place] [address]Dr. Tadeo Smyth Globulin (S) [Mass/Vol] 3.8 g/dL Normal [facility] Comment on above: Performed By: #### L VIJI HALL, CMP ####[facility] Zbikbchild[address] [place], [place] [address]Dr. Tadeo Smyth Glucose [Mass/Vol] 93 mg/dL Normal 74-[address] [facility] Comment on above: Performed By: #### L VIJI HALL, CMP ####[facility] Dauopegbun5939 [place] [address]Dr. Tadeo Smyth Potassium [Moles/Vol] 3.6 mmol/L Normal 3.5-5.[address] [facility] Comment on above: Performed By: #### L VIJI HALL, CMP ####[facility] Naclgarlya[address] [place], [place] [address]Dr. Tadeo Smyth Protein [Mass/Vol] 7.3 g/dL Normal 6.4-8.[address] [facility] Comment on above: Performed By: #### L VIJI HALL, CMP ####[facility] Mworieuzyx14[address] [place], [place] [address]Dr. Tadeo Smyth Sodium [Moles/Vol] 139 mmol/L Normal 136-[address] [facility] Comment on above: Performed By: #### L VIJI HALL, CMP ####[facility] Wbhvntvhna[address] [place], [place] [address]Dr. Tadeo Smyth Urea nitrogen [Mass/Vol] 16.0 mg/dL Normal 7.0-18.[address] [facility] Comment on above: Performed By: #### L VIJI HALL, CMP ####[facility] Xmwhqhpppr[address] [place], [place] [address]Dr. Tadeo Smyth Urea nitrogen/Creatinine [Mass ratio] 16.7 mg/mg Normal [facility] Comment on above: Performed By: #### L VIJI HALL, CMP ####[facility] Ceijoxgksc24[address] [place], [place] [address]Dr. Tadeo Smyth XR ABD FLAT UP_PA Kasey 07-21 XR ABD FLAT UP_PA CH Normal [facility] CULTURE URINEon 07-10-2022 CULTURE URINE Normal [facility] Comment on above: Performed By: #### U RCX ####[facility] Ktsixnhumk[address] [place], [place] [address]Dr. Tadeo Haja INSULINon 07-09-2022 Insulin 15.9 uIU/mL Normal 2.6-24.[address] [facility] Comment on above: Performed By: #### I NSULIN ####[facility] [address]mhpawq[address] [place], [place] [address]Dr. Tadeo Smyth CBC AUTO DIFFon 07-08-2022 BASO # 0.0 103/ul Normal 0.0-0.[address] [facility] Comment on above: Performed By: #### C BC ####[facility] Heihkezvpk[address] [place], [place] [address]Dr. Tadeo Smyth Basophils/100 WBC (Bld) 0.6 % Normal 0.2-2.[address] [facility] Comment on above: Performed By: #### C BC ####[facility] Rvobdecwgv[address] [place], [place] [address]Dr. Tadeo Smyth EO # 0.2 103/ul Normal 0.0-0.[address] [facility] Comment on above: Performed By: #### C BC ####[facility] Mahqjikbnd[address] [place], [place] [address]Dr. Tadeo Smyth Eosinophils/100 WBC (Bld) 3.4 % Normal 0.9-7.[address] [facility] Comment on above: Performed By: #### C BC ####[facility] Akrgjirfbx468[address] [place], [place] [address]Dr. Tadeo Smyth Erythrocyte distribution width (RBC) [Ratio] 13.1 % Normal 11.0-15.[address] [facility] Comment on above: Performed By: #### C BC ####[facility] Rzjsceyqvn[address] [place], [place] [address]Dr. Tadeo Smyth Hematocrit (Bld) [Volume fraction] 42.4 % Normal 36.0-48.[address] [facility] Comment on above: Performed By: #### C BC ####[facility] Ukxngiknyv[address] [place], [place] [address]Dr. Tadeo Smyth Hemoglobin (Bld) [Mass/Vol] 13.7 g/dL Normal 12.0-16.[address] [facility] Comment on above: Performed By: #### C BC ####[facility] Isvxxggyot218[address] [place], [place] [address]Dr. Tadeo Smyth IG # 0.01 10e3/ul Normal 0.00-0.03 [facility] Comment on above: Performed By: #### C BC ####[facility] Xfwacyamjq8536 [place] [address]Dr. Tadeo Smyth IG % 0.2 % Normal 0.0-0.5 [facility] Comment on above: Performed By: #### C BC ####[facility] Itbeqtezgx[address] [place], [place] [address]DrNeo Tadeo Smyth LYMPH # 2.1 103/ul Normal 1.2-3.8 [facility] Comment on above: Performed By: #### C BC ####[facility] Otuncxczaw[address] [place], [place] [address]DrNeo Tadeo Haja Lymphocytes/100 WBC (Bld) 41.2 % Normal 20.5-60.0 [facility] Comment on above: Performed By: #### C BC ####[facility] Txvnsmtplo[address] [place], [place] [address]Dr. Tadeo Haja MANUAL DIFF REQ NO Normal [facility] Comment on above: Performed By: #### C BC ####[facility] Aaldwhrqgs[address] [place], [place] [address]Dr. Tadeo Smyth MCH (RBC) [Entitic mass] 28.8 pg Normal 26.7-34.0 [facility] Comment on above: Performed By: #### C BC ####[facility] Hqbyqylvbd[address] [place], [place] [address]Dr. Tadeo Haja MCHC (RBC) [Mass/Vol] 32.3 g/dL Normal 29.9-35.[address] [facility] Comment on above: Performed By: #### C BC ####[facility] G[address]rmqvdknv[address] [place], [place] [address]DrNeo Tadeo Haja MCV (RBC) [Entitic vol] 89.3 fL Normal 81.0-99.0 [facility] Comment on above: Performed By: #### C BC ####[facility] Kl[address]rhr[address]jjd[address] [place], [place] [address]DrNeo Tadeo Haja MONO # 0.4 103/ul Normal 0.3-0.8 [facility] Comment on above: Performed By: #### C BC ####[facility] Zwcnxowsvf3440 [place] [id number]. Tadeo Smyth Monocytes/100 WBC (Bld) 8.1 % Normal 1.7-12.0 [facility] Comment on above: Performed By: #### C BC ####[facility] Einppwvhes3615 [place] [id number]. Tadeo Smyth NEUT # 2.4 103/ul Normal 1.4-6.5 [facility] Comment on above: Performed By: #### C BC ####[facility] Erwywthppc8943 [place] [address]Dr. Tadeo Smyth Neutrophils/100 WBC (Bld) 46.5 % Normal 43.0-75.[address] [facility] Comment on above: Performed By: #### C BC ####[facility] Geojxgnode6038 [place] [address]Dr. Tadeo Smyth Platelet mean volume (Bld) [Entitic vol] 9.3 fL Critically low 9.5-13.[address] [facility] Comment on above: Performed By: #### C BC ####[facility] Yevajwgvta2819 [place] [id number]. Tadeo Smyth PLT 443 103/ul Normal 150-[address] [facility] Comment on above: Performed By: #### C BC ####[facility] Iryiijexkv4960 [place] [id number]. Tadeo Smyth RBC 4.75 106/ul Normal 4.20-5.[address] [facility] Comment on above: Performed By: #### C BC ####[facility] Dkkbhexwsx2644 [place] [id number]. Tadeo Smyth WBC 5.1 103/ul Normal 4.0-11.[address] [facility] Comment on above: Performed By: #### C BC ####[facility] Ssdxthjtyr1259 [place] [id number]. Tadeo Smyth FREE THYROXINE INDEX T7on 1 09-07-2021 FTI 2.91 Normal 1.30-4.50 [facility] Comment on above: Performed By: #### T 7, LIPID, TSH, CMP ####[facility] Izbqtvkbpu8169 [place] [address]Dr. Tadeo Smyth T3U 31.0 % Normal 30.0-39.0 [facility] Comment on above: Performed By: #### T 7, LIPID, TSH, CMP ####[facility] [id number] [place] [address]Dr. Tadeo Smyth T4 [Mass/Vol] 9.40 ug/dL Normal 4.80-13.[address] [facility] Comment on above: Performed By: #### T 7, LIPID, TSH, CMP ####[facility] [id number] [place], [place] [address]Dr. Tadeo Smyth GLYCOHEMOGLOBIN A1Con 2021 ADA RECOMMENDATION SEE BELOW Normal [facility] Comment on above: Result Comment: ADA RECOMMENDED LIMIT 4.0 - 6.0 ADA THERAPEUTIC TARGET < 7.0 ACTION SUGGESTED > 7.0 Performed By: #### A 1C ####[facility] [id number] [place], [place] [address]Dr. Tadeo Smyth Glucose [Mass/Vol] 120 mg/dL Normal [facility] Comment on above: Performed By: #### A 1C ####[facility] [address] [place] [address]Dr. Tadeo Smyth HbA1c (Bld) [Mass fraction] 5.8 % Normal 4.5-6.[address] [facility] Comment on above: Performed By: #### A 1C ####[facility] [address]qst[address] [place], [place] [address]Dr. Tadeo Smyth IRONon 07-08-2022 Iron [Mass/Vol] 59.0 ug/dL Normal 50.0-170.[address] [facility] Comment on above: Performed By: #### I KEEGAN ####[facility] Ixifeuwjdg[address] [place], [place] [address]Dr. Tadeo Smyth LIPID PROFILEon 07-08-2022 CHOL-HDL RATIO NORM SEE BELOW Normal [facility] Comment on above: Result Comment: 3.3 - 4.4 LOW RISK 4.4 - 7.1 AVERAGE RISK 7.1 - 11.0 MODERATE RISK >11.0 HIGH RISK Performed By: #### T 7, LIPID, TSH, CMP ####[facility] [address] [place] [address]Dr. Tadeo Smyth Cholesterol [Mass/Vol] 227 mg/dL Critically high <=[address] [facility] Comment on above: Performed By: #### T 7, LIPID, TSH, CMP ####[facility] [address] [place] [address]Dr. Tadeo Smyth Cholesterol in HDL [Mass/Vol] 67 mg/dL Critically high 40-[address] [facility] Comment on above: Performed By: #### T 7, LIPID, TSH, CMP ####[facility] [address]xdsrj[address] [place] [address]Dr. Tadeo Smyth Cholesterol in LDL [Mass/Vol] 139.0 mg/dL Normal [facility] Comment on above: Performed By: #### T 7, LIPID, TSH, CMP ####[facility] Wwxlkhfipd[address] [place], [place] [address]Dr. Tadeo Smyth Cholesterol.total/Cho lesterol in HDL [Mass ratio] 3.4 {ratio} Normal [facility] Comment on above: Performed By: #### T 7, LIPID, TSH, CMP ####[facility] Nfz[address]inmyy[address] [place] [address]Dr. Margotnicole Smyth HDL NORMAL > or = 60 mg/dl - LO W CARDIOVASCULAR RISK <40 mg/dl - HIGH CARDIOVASCULAR RISK Normal [facility] Comment on above: Performed By: #### T 7, LIPID, TSH, CMP ####[facility] [address]au[address] [place] [address]Dr. Margotlan Smyth LDL CALC NORMAL SEE BELOW Normal [facility] Comment on above: Result Comment: <100 mg/dl OPTIMAL 100 - 129 mg/dl NEAR OR ABOVE OPTIMAL 130 - 159 mg/dl BORDERLINE HIGH 160 - 189 mg/dl HIGH >190 mg/dl VERY HIGH Performed By: #### T 7, LIPID, TSH, CMP ####[facility] [address]clero[address] [place], [place] [address]Dr. Tadeo Smyth Triglyceride [Mass/Vol] 105 mg/dL Normal <=[address] [facility] Comment on above: Performed By: #### T 7, LIPID, TSH, CMP ####[facility] [address] [place] [address]Dr. Tadeo Smyth VLDL CALC 21.0 mg/dL Normal [facility] Comment on above: Performed By: #### T 7, LIPID, TSH, CMP ####[facility] [address] [place] [address]Dr. Tadeo Smyth OCC BLD IMMUNO SCREENon 11-0 OCCULT BLOOD Negative Normal NEGATIVE [facility] Comment on above: Performed By: #### O BSCRN ####[facility] F[address]rby[address] [place] [address]Dr. Tadeo Smyth PROF 14(COMP METB)on 022 Albumin [Mass/Vol] 3.7 g/dL Normal 3.4-5.0 [facility] Comment on above: Performed By: #### T 7, LIPID, TSH, CMP ####[facility] N[address]oglxlir[address] [place] [address]Dr. Tadeo Smyth Albumin/Globulin [Mass ratio] 0.8 {ratio} Normal [facility] Comment on above: Performed By: #### T 7, LIPID, TSH, CMP ####[facility] [address] [place] [address]Dr. Tadeo Smyth ALP [Catalytic activity/Vol] 141 U/L Critically high 46-[address] [facility] Comment on above: Performed By: #### T 7, LIPID, TSH, CMP ####[facility] [address] [place] [address]Dr. Tadeo Smyth ALT [Catalytic activity/Vol] 23 U/L Normal 14-[address] [facility] Comment on above: Performed By: #### T 7, LIPID, TSH, CMP ####[facility] M[address]fzwy[address] [place] [address]Dr. Tadeo Smyth Anion gap [Moles/Vol] 9.8 mmol/L Normal [facility] Comment on above: Performed By: #### T 7, LIPID, TSH, CMP ####[facility] [address]xqivve[address] [place], [place] [address]Dr. Tadeo Smyth AST [Catalytic activity/Vol] 13 U/L Critically low 15-[address] [facility] Comment on above: Performed By: #### T 7, LIPID, TSH, CMP ####[facility] [address]jqqv[address] [place], [place] [address]Dr. Tadeo Smyth Bilirubin [Mass/Vol] 0.4 mg/dL Normal 0.2-1.[address] [facility] Comment on above: Performed By: #### T 7, LIPID, TSH, CMP ####[facility] Bplwqfnqmb[address] [place], [place] [address]Dr. Tadeo Smyth Calcium [Mass/Vol] 10.2 mg/dL Critically high 8.5-10.1 [facility] Comment on above: Performed By: #### T 7, LIPID, TSH, CMP ####[facility] Vqmqjwcefr[address] [place], [place] [address]Dr. Tadeo Smyth Chloride [Moles/Vol] 101 mmol/L Normal 98-[address] [facility] Comment on above: Performed By: #### T 7, LIPID, TSH, CMP ####[facility] Whixtgjrxw[address] [place], [place] [address]Dr. Tadeo Smyth CO2 [Moles/Vol] 32.8 mmol/L Critically high 21.0-32.[address] [facility] Comment on above: Performed By: #### T 7, LIPID, TSH, CMP ####[facility] [address]praqfwgpa[address] [place], [place] [address]Dr. Tadeo Smyth Creatinine [Mass/Vol] 0.92 mg/dL Normal 0.55-1.[address] [facility] Comment on above: Performed By: #### T 7, LIPID, TSH, CMP ####[facility] Uybcsrbwoy[address] [place], [place] [address]Dr. Tadeo Smyth EGFR-AF BRUNEIAN >60 Normal >=[address] [facility] Comment on above: Performed By: #### T 7, LIPID, TSH, CMP ####[facility] [address]dfc[address] [place] [address]Dr. Tadeo Smyth EGFR-NON AF BRUNEIAN >60 Normal >=60 [facility] Comment on above: Performed By: #### T 7, LIPID, TSH, CMP ####[facility] Lxy[address]hadkhy[address] [place] [address]Dr. Tadeo Smyth Globulin (S) [Mass/Vol] 4.8 g/dL Normal [facility] Comment on above: Performed By: #### T 7, LIPID, TSH, CMP ####[facility] Ubffcvosgv7[address] [place] [address]Dr. Tadeo Smyth Glucose [Mass/Vol] 114 mg/dL Critically high 74-106 [facility] Comment on above: Performed By: #### T 7, LIPID, TSH, CMP ####[facility] Posexlzlwt[address] [place], [place] [address]Dr. Tadeo Smyth Potassium [Moles/Vol] 3.6 mmol/L Normal 3.5-5.1 [facility] Comment on above: Performed By: #### T 7, LIPID, TSH, CMP ####[facility] [address]awcgbun[address] [place] [address]Dr. Tadeo Smyth Protein [Mass/Vol] 8.5 g/dL Critically high 6.4-8.2 [facility] Comment on above: Performed By: #### T 7, LIPID, TSH, CMP ####[facility] Gmpgupkjxh[address] [place], [place] [address]Dr. Tadeo Smyth Sodium [Moles/Vol] 140 mmol/L Normal 136-145 [facility] Comment on above: Performed By: #### T 7, LIPID, TSH, CMP ####[facility] Covoyqckto46[address] [place] [address]Dr. Tadeo Smyth Urea nitrogen [Mass/Vol] 23.0 mg/dL Critically high 7.0-18.0 [facility] Comment on above: Performed By: #### T 7, LIPID, TSH, CMP ####[facility] Xzwqnmkjaz[address] [place], [place] [address]Dr. Tadeo Smyth Urea nitrogen/Creatinine [Mass ratio] 25.0 mg/mg Normal [facility] Comment on above: Performed By: #### T 7, LIPID, TSH, CMP ####[facility] X[address]lhq[address] [place] [address]Dr. Tadeo Smyth TSHon 07-08-2022 TSH 3.748 uIU/mL Critically high 0.358-3.[address] [facility] Comment on above: Performed By: #### T 7, LIPID, TSH, CMP ####[facility] Qxxpxfmknd[address] [place], [place] [address]Dr. Tadeo Smyth UA RANDOM W/MICROSCOPICon BACTERIA TRACE Abnormal NONE SEEN [facility] Comment on above: Performed By: #### U AMIC ####[facility] Iyypdcwnhq[address] [place], [place] [address]Dr. Tadeo Smyth Bilirubin Ql (U) Negative Normal NEGATIVE [facility] Comment on above: Performed By: #### U AMIC ####[facility] Lpkpghfane[address] [place], [place] [address]Dr. Tadeo Smyth CAST NONE SEEN Normal NONE SEEN [facility] Comment on above: Performed By: #### U AMIC ####[facility] [address]aprpxzmsr7[address] [place], [place] [address]Dr. Tadeo Smyth Clarity (U) CLEAR Normal CLEAR [facility] Comment on above: Performed By: #### U AMIC ####[facility] Koceftskxx[address] [place], [place] [address]Dr. Tadeo Smyth Color (U) YELLOW Normal YELLOW [facility] Comment on above: Performed By: #### U AMIC ####[facility] Etffovffzm[address] [place], [place] [address]Dr. Tadeo Smyth Crystals LM Nom (Urine sed) NONE SEEN Normal NONE SEEN [facility] Comment on above: Performed By: #### U AMIC ####[facility] Viwmymlymo[address] [place], [place] [address]Dr. Tadeo Smyth Epithelial cells LM Ql (Urine sed) FEW Abnormal NONE SEEN /RARE [facility] Comment on above: Performed By: #### U AMIC ####[facility] Rybjciodqd[address] [place] [address]Dr. Tadeo Smyth Glucose Ql (U) Negative Normal NEGATIVE [facility] Comment on above: Performed By: #### U AMIC ####[facility] Halarmbsla[address] [place], [place] [address]Dr. Tadeo Smyth Hemoglobin Ql (U) SMALL Abnormal NEGATIVE [facility] Comment on above: Performed By: #### U AMIC ####[facility] Pksnqpdzey[address] [place], [place] [address]Dr. Tadeo Smyth Ketones Ql (U) TRACE Abnormal NEGATIVE [facility] Comment on above: Performed By: #### U AMIC ####[facility] Rupnfsylhu[address] [place], [place] [address]Dr. Tadeo Smyth LEUKOCYTES TRACE Abnormal NEGATIVE [facility] Comment on above: Performed By: #### U AMIC ####[facility] Fmjfgeuhli[address] [place], [place] [address]Dr. Tadeo Smyth MUCOUS NONE SEEN Normal NONE SEEN [facility] Comment on above: Performed By: #### U AMIC ####[facility] Gctxnmmxkq[address] [place], [place] [address]Dr. Tadeo Smyth Nitrite Ql (U) Negative Normal NEGATIVE [facility] Comment on above: Performed By: #### U AMIC ####[facility] Mvlxocafeg[address] [place], [place] [address]Dr. Tadeo Smyth pH (U) 6.5 [pH] Normal 5-[address] [facility] Comment on above: Performed By: #### U AMIC ####[facility] Nsxscbnrhr[address] [place], [place] [address]Dr. Tadeo Smyth RBC 5-10 Abnormal 0-[address] [facility] Comment on above: Performed By: #### U AMIC ####[facility] Bkwhagvadi[address] [place], [place] [address]Dr. Tadeo Smyth SPEC GRAVITY 1.020 Normal 1.005-<=1.[address] [facility] Comment on above: Performed By: #### U AMIC ####[facility] Tsrvmewbar[address] [place], [place] [address]Dr. Tadeo Smyth UA PROTEIN 30 mg/dl Abnormal NEGATIVE/ TRACE [facility] Comment on above: Performed By: #### U AMIC ####[facility] X[address]vojmkoj[address]131 [place], [place] [address]Il. Tadeo Smyth Urobilinogen Qn (U) 0.2 {Benito'U}/dL Normal 0.2 - 1. [address] [facility] Comment on above: Performed By: #### U AMIC ####[facility] Ipjywusvyc65[address] [place], [place] [address]La. Tadeo Smyth WBC 2-5 Abnormal NONE SEEN [facility] Comment on above: Performed By: #### U AMIC ####[facility] Bqgftjmhdo5400 [place], [place] [address]Ub. Tadeo Smyth Covid-19 PCR ([facility])on 06-07 SARS-CoV-2 (COVID-19) RNA CHEN+probe Ql (Unsp spec) Not detected Normal NOT DETECTED [facility] Comment on above: Result Comment: When [...] for this test is supported by the [place] of [employer] and [employer] Service's declaration that [...] be used). Performed By: #### C VDTBH ####[facility] Sltfxlwwmq6818 [place], [place] [address]Vt. Tadeo Smyth CULTURE URINEon 06-09-2022 CULTURE URINE Normal [facility] Comment on above: Performed By: #### U RCX ####[facility] [address]rkkp[address] [place], [place] [address]Dr. Tadeo Smyth GI PANEL (PCR)on 06-07-2022 Adenovirus F 40/41 Not detected Normal NOT DETECTED [facility] Comment on above: Performed By: #### G IPANEL ####[facility] [address]tscltlotk[address] [place], [place] [address]Dr. Margotnicole Smyth Astrovirus Not detected Normal NOT DETECTED [facility] Comment on above: Performed By: #### G IPANEL ####[facility] Oiwbhimekm[address] [place], [place] [address]Dr. Tadeo Smyth C. Diff toxin A/B Not detected Normal NOT DETECTED [facility] Comment on above: Performed By: #### G IPANEL ####[facility] Rycbcyqfpu[address] [place], [place] [address]Dr. Tadeo Smyth Campylobacter Not detected Normal NOT DETECTED [facility] Comment on above: Performed By: #### G IPANEL ####[facility] [address]wnjwjeb39[address] [place], [place] [address]Dr. Margotnicole [facility] Cryptosporidium Not detected Normal NOT DETECTED [facility] Comment on above: Performed By: #### G IPANEL ####[facility] Tsibjvhdox[address] [place], [place] [address]Dr. Tadeo Smyth Cyclos. Cayetanensis Not detected Normal NOT DETECTED [facility] Comment on above: Performed By: #### G IPANEL ####[facility] Issqxleubb9[address] [place], [place] [address]Dr. Tadeo Smyth E. Coli O157 Not Applicable Normal Not Applicable [facility] Comment on above: Performed By: #### G IPANEL ####[facility] Wfggonhmyq54[address] [place], [place] [address]Dr. nicole [facility] E. histolytica Not detected Normal NOT DETECTED [facility] Comment on above: Performed By: #### G IPANEL ####[facility] S[address]etkdgip[address] [place], [place] [address]Dr. Margotnicole Smyth EAEC Not detected Normal NOT DETECTED [facility] Comment on above: Performed By: #### G IPANEL ####[facility] Xwqmltnrbi4527 [place] [id number]. Tadeo Smyth EIEC Not detected Normal NOT DETECTED [facility] Comment on above: Performed By: #### G IPANEL ####[facility] Ark[address]qscyx[address] [place] [address]Dr. Tadeo Smyth EPEC Not detected Normal NOT DETECTED [facility] Comment on above: Performed By: #### G IPANEL ####[facility] Oxtzhdeomx4[address] [place] [address]Dr. Tadeo Smyth ETEC Not detected Normal NOT DETECTED [facility] Comment on above: Performed By: #### G IPANEL ####[facility] Wdadfkuwpn[address] [place], [place] [address]Dr. Tadeo Smyth G. Lamblia Not detected Normal NOT DETECTED [facility] Comment on above: Performed By: #### G IPANEL ####[facility] Txqzprogvb[address] [place], [place] [address]Dr. Tadeo Smyth GIPANEL CONTROLS PASSED Normal [facility] Comment on above: Performed By: #### G IPANEL ####[facility] Khdxlsecxy[address] [place], [place] [address]Dr. Tadeo MEZANL ARRON HEADER GI PANEL BACTERIA Normal [facility] Comment on above: Performed By: #### G IPANEL ####[facility] P[address]jsjmadl[address] [place], [place] [address]Dr. Tadeo MEZANLHD ECOLI GI PANEL DIARRHEAGEN IC E.COLI / SHIGELLA Normal [facility] Comment on above: Performed By: #### G IPANEL ####[facility] Ndrugscrto7[address] [place], [place] [address]Dr. Margotnicole Smyth GIPNLHD INFO SEE BELOW Normal [facility] Comment on above: Result Comment: EAEC - Enteroaggregative E. Coli EPEC- Enteropathogenic E. Coli ETEC- Enterotoxigenic E. Coli lt/st STEC- Shigella-like toxin-producing E. Coli stx1/stx2 EIEC- Shigella/Enteroinvasive E. Coli Performed By: #### G IPANEL ####[facility] Ufvch[address]xgl[address] [place], [place] [id number]. Tadeo Smyth GIPNLHD PARASITES GI PANEL PARASITES Normal [facility] Comment on above: Performed By: #### G IPANEL ####[facility] Oclplzceha[address] [place], [place] [address]Dr. Tadeo Smyth GIPNLHD VIRUS GI PANEL VIRUSES Normal [facility] Comment on above: Performed By: #### G IPANEL ####[facility] Zopsykmlgn780[address] [place], [place] [address]Dr. Tadeo Smyth Norovirus GI/GII Not detected Normal NOT DETECTED [facility] Comment on above: Performed By: #### G IPANEL ####[facility] Posbpaxifg174[address] [place], [place] [address]Dr. Tadeo Smyth P. Shigelloides Not detected Normal NOT DETECTED [facility] Comment on above: Performed By: #### G IPANEL ####[facility] Ttklewetzw[address] [place], [place] [address]Dr. Tadeo Smyth Rotavirus A Not detected Normal NOT DETECTED [facility] Comment on above: Performed By: #### G IPANEL ####[facility] Yjpshvmxtf[address] [place], [place] [address]Dr. Tadeo Smyth Salmonella Not detected Normal NOT DETECTED [facility] Comment on above: Performed By: #### G IPANEL ####[facility] Qekgyafrdz39[address] [place], [place] [address]Dr. Tadeo Smyth Sapovirus Not detected Normal NOT DETECTED [facility] Comment on above: Performed By: #### G IPANEL ####[facility] Adwqeoraou[address] [place], [place] [address]Dr. Tadeo Smyth STEC Not detected Normal NOT DETECTED [facility] Comment on above: Performed By: #### G IPANEL ####[facility] Zsieceaacj34[address] [place], [place] [address]Dr. Margotnicole Smyth Vibrio Not detected Normal NOT DETECTED [facility] Comment on above: Performed By: #### G IPANEL ####[facility] Zkjiffsvue[address] [place], [place] [address]Dr. Tadeo Smyth Vibrio Cholera Not detected Normal NOT DETECTED [facility] Comment on above: Performed By: #### G IPANEL ####[facility] Wwhxzsrnvq8033 [place] [address]Dr. Margotnicole Smyth Y. Enterocolitica Not detected Normal NOT DETECTED [facility] Comment on above: Performed By: #### G IPANEL ####[facility] [address]cyapgkqb[address] [place], [place] [address]Dr. Margotnicole Smyth AMYLASEon 06-06-2022 Amylase [Catalytic activity/Vol] 61 U/L Normal 25-[address] [facility] Comment on above: Performed By: #### A MY, LIPA ####[facility] Ktswzfmnwi[address] [place], [place] [address]Dr. Margotnicole Smyth CBC AUTO DIFFon 06-06-2022 BASO # 0.0 103/ul Normal 0.0-0.1 [facility] Comment on above: Performed By: #### C BC ####[facility] Pektsuwbif[address] [place], [place] [address]Dr. Tadeo Smyth Basophils/100 WBC (Bld) 0.5 % Normal 0.2-2.0 [facility] Comment on above: Performed By: #### C BC ####[facility] Vrviunbddo[address] [place], [place] [address]Dr. Tadeo Smyth EO # 0.2 103/ul Normal 0.0-0.7 [facility] Comment on above: Performed By: #### C BC ####[facility] Yqmnlcewts[address] [place], [place] [address]Dr. Tadeo Smyth Eosinophils/100 WBC (Bld) 3.4 % Normal 0.9-7.[address] [facility] Comment on above: Performed By: #### C BC ####[facility] Hlscszbbql[address] [place], [place] [address]Dr. Tadeo Smyth Erythrocyte distribution width (RBC) [Ratio] 13.2 % Normal 11.0-15.0 [facility] Comment on above: Performed By: #### C BC ####[facility] Zmwvjfxvvx[address] [place], [place] [address]Dr. Tadeo Smyth Hematocrit (Bld) [Volume fraction] 38.3 % Normal 36.0-48.0 [facility] Comment on above: Performed By: #### C BC ####[facility] Zcgtldyeqn4449 [place] [address]Dr. Tadeo Smyth Hemoglobin (Bld) [Mass/Vol] 12.0 g/dL Normal 12.0-16.0 [facility] Comment on above: Performed By: #### C BC ####[facility] Bjcsvnkrjz1444 [place] [address]Dr. Margotnicole Smyth IG # 0.01 10e3/ul Normal 0.00-0.[address] [facility] Comment on above: Performed By: #### C BC ####[facility] W[address]zdkfhdtj8[address] [place], [place] [address]Dr. Tadeo Smyth IG % 0.2 % Normal 0.0-0.5 [facility] Comment on above: Performed By: #### C BC ####[facility] Egtkxwruvn8[address] [place], [place] [address]Dr. Tadeo Smyth LYMPH # 1.7 103/ul Normal 1.2-3.[address] [facility] Comment on above: Performed By: #### C BC ####[facility] Spbkzegefs[address] [place], [place] [address]Dr. Tadeo Smyth Lymphocytes/100 WBC (Bld) 28.1 % Normal 20.5-60.0 [facility] Comment on above: Performed By: #### C BC ####[facility] Uspidmwfwn[address] [place], [place] [address]Dr. Tadeo Smyth MANUAL DIFF REQ NO Normal [facility] Comment on above: Performed By: #### C BC ####[facility] Q[address]upuwzwpp[address] [place], [place] [address]Dr. Tadeo Smyth MCH (RBC) [Entitic mass] 28.5 pg Normal 26.7-34.[address] [facility] Comment on above: Performed By: #### C BC ####[facility] Xxzqeinssv[address] [place], [place] [address]Dr. Tadeo Smyth MCHC (RBC) [Mass/Vol] 31.3 g/dL Normal 29.9-35.2 [facility] Comment on above: Performed By: #### C BC ####[facility] [address]kmn[address] [place] [address]Dr. Tadeo Smyth MCV (RBC) [Entitic vol] 91.0 fL Normal 81.0-99.[address] [facility] Comment on above: Performed By: #### C BC ####[facility] [address]yqttgk[address] [place], [place] [address]Dr. Tadeo Haja MONO # 0.4 103/ul Normal 0.3-0.8 [facility] Comment on above: Performed By: #### C BC ####[facility] Hwbxrkrees[address] [place], [place] [address]Dr. Margotnicole Smyth Monocytes/100 WBC (Bld) 7.1 % Normal 1.7-12.[address] [facility] Comment on above: Performed By: #### C BC ####[facility] [address]kmnmgmeq[address] [place], [place] [address]Dr. Tadeo Haja NEUT # 3.6 103/ul Normal 1.4-6.5 [facility] Comment on above: Performed By: #### C BC ####[facility] Lkryskggge[address] [place], [place] [address]Dr. Margotnicole Smyth Neutrophils/100 WBC (Bld) 60.7 % Normal 43.0-75.[address] [facility] Comment on above: Performed By: #### C BC ####[facility] [address]opluisclt[address] [place], [place] [address]Dr. Margotnicole Smyth Platelet mean volume (Bld) [Entitic vol] 8.9 fL Critically low 9.5-13.[address] [facility] Comment on above: Performed By: #### C BC ####[facility] Qalfxukdbq[address] [place], [place] [address]Dr. Tadeo Smyth PLT 374 103/ul Normal 150-[address] [facility] Comment on above: Performed By: #### C BC ####[facility] Djtfvyawrb[address] [place], [place] [address]Dr. Tadeo Smyth RBC 4.21 106/ul Normal 4.20-5.[address] [facility] Comment on above: Performed By: #### C BC ####[facility] [address]inlreb[address] [place] [address]Dr. Tadeo Smyth WBC 5.9 103/ul Normal 4.0-11.[address] [facility] Comment on above: Performed By: #### C BC ####[facility] [address]vshdr[address] [place], [place] [address]Dr. Tadeo Smyth CT ABD/PELV W CONon 06-06-[address] ABD/PELV W CON Normal [facility] ER URINE PROFILEon 2 Bilirubin Ql (U) Negative Normal NEGATIVE [facility] Comment on above: Performed By: #### KAROL MERCHANT ####[facility] Kfijkfymin[address] [place], [place] [address]Dr. Tadeo Smyth Clarity (U) CLOUDY Abnormal CLEAR [facility] Comment on above: Performed By: #### KAROL MERCHANT ####[facility] [address]kgtnuozz[address] [place], [place] [address]Dr. Tadeo Smyth Color (U) LT. YELLOW Normal YELLOW [facility] Comment on above: Performed By: #### KAROL MERCHANT ####[facility] [address]mbvffeeb[address] [place], [place] [address]Dr. Tadeo Smyth ERUAHD A micrscopic examina tion will be performed if indicated. Normal [facility] Comment on above: Performed By: #### KAROL MERCHANT ####[facility] Zhsnuqxvet[address] [place], [place] [address]Dr. Tadeo Smyth Glucose Ql (U) Negative Normal NEGATIVE [facility] Comment on above: Performed By: #### KAROL MERCHANT ####[facility] [address]ugztevdzy[address] [place], [place] [address]Dr. Tadeo Smyth Hemoglobin Ql (U) TRACE-INTACT Abnormal NEGATIVE [facility] Comment on above: Performed By: #### SANDRO MERCHANTRO ####[facility] Cfvvvydqcl[address] [place], [place] [address]Dr. Tadeo Smyth Ketones Ql (U) Negative Normal NEGATIVE [facility] Comment on above: Performed By: #### SANDRO MERCHANTRO ####[facility] Zoznvjxxdn5255 [place] [address]Dr. Tadeo Smyth LEUKOCYTES SMALL Abnormal NEGATIVE [facility] Comment on above: Performed By: #### SANDRO MERCHANTRO ####[facility] Wpjwcrpzvs4882 [place] [address]Dr. Tadeo Smyth Nitrite Ql (U) Negative Normal NEGATIVE [facility] Comment on above: Performed By: #### SANDRO MERCHANTRO ####[facility] Fwtnhsrdzg0401 [place] [address]Dr. Tadeo Smyth pH (U) 6.0 [pH] Normal 5-[address] [facility] Comment on above: Performed By: #### SANDRO MERCHANTRO ####[facility] Sypcbcpbch[address] [place], [place] [address]Dr. Tadeo Smyth SPEC GRAVITY 1.020 Normal 1.005-<=1.0 25 [facility] Comment on above: Performed By: #### SANDRO MERCHANTRO ####[facility] Cdpdgxpkvp[address] [place], [place] [address]Dr. Tadeo Smyth UA PROTEIN Negative Normal NEGATIVE/ TRACE [facility] Comment on above: Performed By: #### SANDRO MERCHANTRO ####[facility] Fjxxthakrl418[address] [place], [place] [address]Dr. Tadeo Smyth UR MICRO IND INDICATED Normal [facility] Comment on above: Performed By: #### SANDRO MERCHANTRO ####[facility] Xhlbmcvixz22[address] [place], [place] [address]Dr. Tadeo Smyth Urobilinogen Qn (U) 0.2 {Benito'U}/dL Normal 0.2 - 1. [address] [facility] Comment on above: Performed By: #### Matthew FRANCISCO UMICRO ####[facility] Eypancdysn[address] [place], [place] [address]Dr. Tadeo Smyth LIPASEon 06-06-2022 Lipase [Catalytic activity/Vol] 100.0 U/L Normal 73.0-393.0 [facility] Comment on above: Performed By: #### A MY, FLACOA ####[facility] Fogpxjhaqg7433 [place] [address]Dr. Tadeo Smyth PROF 14(COMP METB)on 022 Albumin [Mass/Vol] 3.3 g/dL Critically low 3.4-5.0 [facility] Comment on above: Performed By: #### C MP ####[facility] Ufhrflzopl39[address] [place] [address]Dr. Tadeo Smyth Albumin/Globulin [Mass ratio] 0.9 {ratio} Normal [facility] Comment on above: Performed By: #### C MP ####[facility] Jetaiybrdj320[address] [place], [place] [address]Dr. Tadeo Smyth ALP [Catalytic activity/Vol] 140 U/L Critically high 46-116 [facility] Comment on above: Performed By: #### C MP ####[facility] Uwrhyrnghz9[address] [place], [place] [address]Dr. Tadeo Smyth ALT [Catalytic activity/Vol] 23 U/L Normal 14-59 [facility] Comment on above: Performed By: #### C MP ####[facility] U[address]ypvozozb[address] [place], [place] [address]Dr. Tadeo Smyth Anion gap [Moles/Vol] 11.6 mmol/L Normal [facility] Comment on above: Performed By: #### C MP ####[facility] Azqzzxlevo1101[address] [place], [place] [address]Dr. Tadeo Smyth AST [Catalytic activity/Vol] 18 U/L Normal 15-37 [facility] Comment on above: Performed By: #### C MP ####[facility] Dlowknpybq529[address] [place], [place] [address]Dr. Tadeo Smyth Bilirubin [Mass/Vol] 0.2 mg/dL Normal 0.2-1.0 [facility] Comment on above: Performed By: #### C MP ####[facility] Onozojzxtd89[address] [place], [place] [address]Dr. Tadeo Smyth Calcium [Mass/Vol] 8.8 mg/dL Normal 8.5-10.[address] [facility] Comment on above: Performed By: #### C MP ####[facility] Kxoahrtrst1697 [place] [address]Dr. Tadeo Smyth Chloride [Moles/Vol] 109 mmol/L Critically high 98-[address] [facility] Comment on above: Performed By: #### C MP ####[facility] Icltlssatu3047 [place] [address]Dr. Tadeo Smyth CO2 [Moles/Vol] 26.3 mmol/L Normal 21.0-32.[address] [facility] Comment on above: Performed By: #### C MP ####[facility] Weuctnwtfh028[address] [place], [place] [address]Dr. Tadeo Haja Creatinine [Mass/Vol] 0.81 mg/dL Normal 0.55-1.[address] [facility] Comment on above: Performed By: #### C MP ####[facility] Wjnzzvbeyf9[address] [place], [place] [address]Dr. Tadeo Haja EGFR-AF BRUNEIAN >60 Normal >=[address] [facility] Comment on above: Performed By: #### C MP ####[facility] Dgpliidqfu49[address] [place], [place] [address]Dr. Tadeo Haja EGFR-NON AF BRUNEIAN >60 Normal >=[address] [facility] Comment on above: Performed By: #### C MP ####[facility] Jqklrnybkr4540[address] [place], [place] [address]Dr. Tadeo Haja Globulin (S) [Mass/Vol] 3.7 g/dL Normal [facility] Comment on above: Performed By: #### C MP ####[facility] Awkgqjepaz8[address] [place], [place] [address]Dr. Margotnicole Haja Glucose [Mass/Vol] 90 mg/dL Normal 74-[address] [facility] Comment on above: Performed By: #### C MP ####[facility] Nykolyaopf49[address] [place] [address]Dr. Tadeo Smyth Potassium [Moles/Vol] 3.9 mmol/L Normal 3.5-5.[address] [facility] Comment on above: Performed By: #### C MP ####[facility] Vpftyxffal2981 [place] [address]Dr. Tadeo Smyth Protein [Mass/Vol] 7.0 g/dL Normal 6.4-8.[address] [facility] Comment on above: Performed By: #### C MP ####[facility] Sbcfwnppft7324 [place] [address]Dr. Tadeo Smyth Sodium [Moles/Vol] 143 mmol/L Normal 136-[address] [facility] Comment on above: Performed By: #### C MP ####[facility] Qlebdgmsmc3462 [place] [address]Dr. Margotnicole Smyth Urea nitrogen [Mass/Vol] 12.0 mg/dL Normal 7.0-18.0 [facility] Comment on above: Performed By: #### C MP ####[facility] Ipfalfjlms5986 [place] [address]Dr. Tadeo Smyth Urea nitrogen/Creatinine [Mass ratio] 14.8 mg/mg Normal [facility] Comment on above: Performed By: #### C MP ####[facility] Oovvbeanfe8495 [place] [address]Dr. Tadeo Smyth URINE MICROSCOPIC ONLYon BACTERIA LARGE Abnormal NONE SEEN [facility] Comment on above: Performed By: #### SANDRO MERCHANTRO ####[facility] Jewuzveyrl1105 [place] [address]Dr. Tadeo Smyth Bacteria identified Cx Nom (U) INDICATED Normal [facility] Comment on above: Performed By: #### SANDRO MERCHANTRO ####[facility] Ybfrsbklux1050 [place] [address]Dr. Tadeo Smyth CAST NONE SEEN Normal NONE SEEN [facility] Comment on above: Performed By: #### SANDRO MERCHANTRO ####[facility] Onsjahwerm3030 [place] [address]Dr. Tadeo Smyth Crystals LM Nom (Urine sed) NONE SEEN Normal NONE SEEN [facility] Comment on above: Performed By: #### SANDRO MERCHANTRO ####[facility] Mvqecmyrpx0876 [place] [address]Dr. Tadeo Smyth Epithelial cells LM Ql (Urine sed) RARE Normal NONE SEEN /RARE [facility] Comment on above: Performed By: #### KAROL MERCHANT ####[facility] Yrzvhxmozl1072 [place] [address]Dr. Tadeo Smyth MUCOUS TRACE Abnormal NONE SEEN [facility] Comment on above: Performed By: #### KAROL MERCHANT ####[facility] Dpryameyfa7620 [place] [address]Dr. Tadeo Smyth RBC 0-2 Normal 0-[address] [facility] Comment on above: Performed By: #### KAROL MERCHANT ####[facility] Eipvdcakht[address] [place], [place] [address]Dr. Tadeo Smyth WBC 2-5 Abnormal NONE SEEN [facility] Comment on above: Performed By: #### KAROL MERCHANT ####[facility] Ghebqrvelz420[address] [place], [place] [address]Dr. Tadeo Smyth AMYLASEon 06-04-2022 Amylase [Catalytic activity/Vol] 61 U/L Normal 25-[address] [facility] Comment on above: Performed By: #### A MY, CMP, LIPA ####[facility] Mbhnjabbrx25[address] [place], [place] [address]Dr. Tadeo Smyth CBC AUTO DIFFon 06-04-2022 BASO # 0.0 103/ul Normal 0.0-0.[address] [facility] Comment on above: Performed By: #### C BC ####[facility] Jcmesmwtzh528[address] [place], [place] [address]Dr. Tadeo Haja Basophils/100 WBC (Bld) 0.5 % Normal 0.2-2.[address] [facility] Comment on above: Performed By: #### C BC ####[facility] Kbixjtrmif[address] [place], [place] [address]Dr. Tadeo Smyth EO # 0.3 103/ul Normal 0.0-0.[address] [facility] Comment on above: Performed By: #### C BC ####[facility] Eagoxsrzat1903 [place] [address]Dr. Tadeo Smyth Eosinophils/100 WBC (Bld) 4.7 % Normal 0.9-7.[address] [facility] Comment on above: Performed By: #### C BC ####[facility] Vhwlrmmayj64[address] [place], [place] [address]Dr. Tadeo Smyth Erythrocyte distribution width (RBC) [Ratio] 13.2 % Normal 11.0-15.[address] [facility] Comment on above: Performed By: #### C BC ####[facility] Lnvhbcqhma526[address] [place], [place] [address]Dr. Tadeo Smyth Hematocrit (Bld) [Volume fraction] 36.9 % Normal 36.0-48.[address] [facility] Comment on above: Performed By: #### C BC ####[facility] Rbmznophst73[address] [place], [place] [address]Dr. Tadeo Smyth Hemoglobin (Bld) [Mass/Vol] 11.9 g/dL Critically low 12.0-16.[address] [facility] Comment on above: Performed By: #### C BC ####[facility] Alyzyfoivv7364[address] [place], [place] [address]Dr. Tadeo Smyth IG # 0.01 10e3/ul Normal 0.00-0.[address] [facility] Comment on above: Performed By: #### C BC ####[facility] Jinbocqkqd804[address] [place], [place] [address]Dr. Tadeo Smyth IG % 0.2 % Normal 0.0-0.[address] [facility] Comment on above: Performed By: #### C BC ####[facility] Ykhvccdsfa7[address] [place], [place] [address]Dr. Tadeo Smyth LYMPH # 2.3 103/ul Normal 1.2-3.[address] [facility] Comment on above: Performed By: #### C BC ####[facility] Qtmosowdfi3034[address] [place], [place] [address]Dr. Tadeo Smyth Lymphocytes/100 WBC (Bld) 37.3 % Normal 20.5-60.[address] [facility] Comment on above: Performed By: #### C BC ####[facility] Toosdoiuin20[address] [place] [phone]. Tadeo Smyth MANUAL DIFF REQ NO Normal [facility] Comment on above: Performed By: #### C BC ####[facility] Mngcrslovt9722 [place] [phone]. Tadeo Smyth MCH (RBC) [Entitic mass] 29.0 pg Normal 26.7-34.[address] [facility] Comment on above: Performed By: #### C BC ####[facility] Xloxvrrgdw1791 [place] [address]Dr. Tadeo Smyth MCHC (RBC) [Mass/Vol] 32.2 g/dL Normal 29.9-35.[address] [facility] Comment on above: Performed By: #### C BC ####[facility] Zvwksesabo2157 [place] [address]Dr. Tadeo Haja MCV (RBC) [Entitic vol] 90.0 fL Normal 81.0-99.[address] [facility] Comment on above: Performed By: #### C BC ####[facility] Dsbihokuzf24[address] [place], [place] [address]Dr. Tadeo Haja MONO # 0.4 103/ul Normal 0.3-0.[address] [facility] Comment on above: Performed By: #### C BC ####[facility] Qijeotylle010[address] [place], [place] [address]Dr. Margotnicole Smyth Monocytes/100 WBC (Bld) 6.8 % Normal 1.7-12.[address] [facility] Comment on above: Performed By: #### C BC ####[facility] Nkspkzbxsn365[address] [place], [place] [address]Dr. Tadeo Smyht NEUT # 3.2 103/ul Normal 1.4-6.[address] [facility] Comment on above: Performed By: #### C BC ####[facility] [address]jybxbclg7[address] [place], [place] [address]Dr. Tadeo Smyth Neutrophils/100 WBC (Bld) 50.5 % Normal 43.0-75.[address] [facility] Comment on above: Performed By: #### C BC ####[facility] Ggrcvmlvsz9191 [place] [phone]. Tadeo Smyth Platelet mean volume (Bld) [Entitic vol] 8.9 fL Critically low 9.5-13.[address] [facility] Comment on above: Performed By: #### C BC ####[facility] Rihtvyyzhp2338 [place] [address]Dr. Tadeo Smyth PLT 387 103/ul Normal 150-[address] [facility] Comment on above: Performed By: #### C BC ####[facility] Kowahxslzv7985 [place] [address]Dr. Tadeo Haja RBC 4.10 106/ul Critically low 4.20-5.40 [facility] Comment on above: Performed By: #### C BC ####[facility] Qxbcecivbw4399 [place] [address]Dr. Tadeo Smyth WBC 6.2 103/ul Normal 4.0-11.[address] [facility] Comment on above: Performed By: #### C BC ####[facility] Qlnslcsbem9[address] [place], [place] [address]Dr. Tadeo Smyth CT ABD/PELV W CONon 06-04-[address] ABD/PELV W CON Normal [facility] ER URINE PROFILEon 2 Bilirubin Ql (U) Negative Normal NEGATIVE [facility] Comment on above: Performed By: #### SANDRO MERCHANTRO ####[facility] [address]uldokhxjr55[address] [place], [place] [address]Dr. Tadeo Smyth Clarity (U) CLEAR Normal CLEAR [facility] Comment on above: Performed By: #### SANDRO MERCHANTRO ####[facility] Blabrnprar6060 [place] [address]Dr. Tadeo Smyth Color (U) LT. YELLOW Normal YELLOW [facility] Comment on above: Performed By: #### SANDRO MERCHANTRO ####[facility] Mdoimuwwah6586 [place] [address]Dr. Tadeo Smyth ERUAHD A micrscopic examina tion will be performed if indicated. Normal [facility] Comment on above: Performed By: #### KAROL MERCHANT ####[facility] Lmpzyervsx8414 [place] [address]Dr. Tadeo Smyth Glucose Ql (U) Negative Normal NEGATIVE [facility] Comment on above: Performed By: #### SANDRO MERCHANTRO ####[facility] Qkmuyfczbl0524 [place] [address]Dr. Tadeo Smyth Hemoglobin Ql (U) TRACE-INTACT Abnormal NEGATIVE [facility] Comment on above: Performed By: #### SANDRO MERCHANTRO ####[facility] Rusvggbqgb20[address] [place], [place] [address]Dr. Tadeo Smyth Ketones Ql (U) Negative Normal NEGATIVE [facility] Comment on above: Performed By: #### SANDRO MERCHANTRO ####[facility] Gdaxlylird44[address] [place], [place] [address]Dr. Tadeo Smyth LEUKOCYTES Negative Normal NEGATIVE [facility] Comment on above: Performed By: #### KAROL MERCHANT ####[facility] Dncreleyhy9[address] [place], [place] [address]Dr. Tadeo Haja Nitrite Ql (U) Negative Normal NEGATIVE [facility] Comment on above: Performed By: #### KAROL MERCHANT ####[facility] Boubfcjvnj340[address] [place], [place] [address]Dr. Tadeo Smyth pH (U) 6.5 [pH] Normal 5-[address] [facility] Comment on above: Performed By: #### KAROL MERCHANT ####[facility] Ykmzymhxet[address] [place], [place] [address]Dr. Tadeo Smyth SPEC GRAVITY 1.015 Normal 1.005-<=1.[address] [facility] Comment on above: Performed By: #### KAROL MERCHANT ####[facility] Itiniqiapk337[address] [place], [place] [address]Dr. Tadeo Smyth UA PROTEIN Negative Normal NEGATIVE/ TRACE [facility] Comment on above: Performed By: #### KAROL MERCHANT ####[facility] Eowanuudnx97[address] [place], [place] [address]Dr. Tadeo Smyth UR MICRO IND INDICATED Normal [facility] Comment on above: Performed By: #### KAROL MERCHANT ####[facility] Gsnosuuruw1581 [place] [address]Dr. Margotnicole Smyth Urobilinogen Qn (U) 0.2 {Benito'U}/dL Normal 0.2 - 1. 0 [facility] Comment on above: Performed By: #### KAROL MERCHANT ####[facility] Kivpescdgv6064 [place] [address]Dr. Tadeo Smyth LIPASEon 06-04-2022 Lipase [Catalytic activity/Vol] 81.0 U/L Normal 73.0-393.[address] [facility] Comment on above: Performed By: #### A MY, CMP, LIPA ####[facility] [address]ewxzmkmge74[address] [place], [place] [address]Dr. Tadeo Smyth PROF 14(COMP METB)on 022 Albumin [Mass/Vol] 3.6 g/dL Normal 3.4-5.0 [facility] Comment on above: Performed By: #### A MY, CMP, LIPA ####[facility] Tnjpimpabn3914 [place] [address]Dr. Tadeo Smyth Albumin/Globulin [Mass ratio] 1.0 {ratio} Normal [facility] Comment on above: Performed By: #### A MY, CMP, LIPA ####[facility] Xgaodwowih8514 [place] [address]Dr. Tadeo Smyth ALP [Catalytic activity/Vol] 150 U/L Critically high 46-[address] [facility] Comment on above: Performed By: #### A MY, CMP, LIPA ####[facility] Vxdkgzsmza7044 [place] [address]Dr. Tadeo Smyth ALT [Catalytic activity/Vol] 23 U/L Normal 14-[address] [facility] Comment on above: Performed By: #### A MY, CMP, LIPA ####[facility] Mikixhzqgi7209 [place] [address]Dr. Tadeo Smyth Anion gap [Moles/Vol] 13.2 mmol/L Normal [facility] Comment on above: Performed By: #### A MY, CMP, LIPA ####[facility] Qvcsbwklqm8711 [place] [address]Dr. Tadeo Smyth AST [Catalytic activity/Vol] 12 U/L Critically low 15-[address] [facility] Comment on above: Performed By: #### A MY, CMP, LIPA ####[facility] Hgqhpinfqm[address] [place], [place] [address]Dr. Tadeo Smyth Bilirubin [Mass/Vol] 0.1 mg/dL Critically low 0.2-1.[address] [facility] Comment on above: Performed By: #### A MY, CMP, LIPA ####[facility] Koqewhlgcd[address] [place], [place] [address]Dr. Tadeo Smyth Calcium [Mass/Vol] 9.0 mg/dL Normal 8.5-10.[address] [facility] Comment on above: Performed By: #### A MY, CMP, LIPA ####[facility] Peklnrivdb[address] [place], [place] [address]Dr. Tadeo Smyth Chloride [Moles/Vol] 104 mmol/L Normal 98-[address] [facility] Comment on above: Performed By: #### A MY, CMP, LIPA ####[facility] Ieysvjosvt[address] [place], [place] [address]Dr. Tadeo Smyth CO2 [Moles/Vol] 26.6 mmol/L Normal 21.0-32.[address] [facility] Comment on above: Performed By: #### A MY, CMP, LIPA ####[facility] Pdfgqmiysv[address] [place], [place] [address]Dr. Tadeo Smyth Creatinine [Mass/Vol] 0.97 mg/dL Normal 0.55-1.[address] [facility] Comment on above: Performed By: #### A MY, CMP, LIPA ####[facility] Usvrtkgtzc[address] [place], [place] [address]Dr. Tadeo Smyth EGFR-AF BRUNEIAN >60 Normal >=[address] [facility] Comment on above: Performed By: #### A MY, CMP, LIPA ####[facility] Jqttguzuff7137 [place] [phone]. Tadeo Smyth EGFR-NON AF BRUNEIAN 60 mL/min/1.73m2 Normal >=[address] [facility] Comment on above: Performed By: #### A MY, CMP, LIPA ####[facility] Ivgabcjmuf6273 [place] [address]Dr. Tadeo Smyth Globulin (S) [Mass/Vol] 3.7 g/dL Normal [facility] Comment on above: Performed By: #### A MY, CMP, LIPA ####[facility] Exfgfjhzhw3556 [place] [address]Dr. Tadeo Smyth Glucose [Mass/Vol] 109 mg/dL Critically high 74-106 [facility] Comment on above: Performed By: #### A MY, CMP, LIPA ####[facility] Lquzjtesra6038 [place] [address]Dr. Tadeo Smyth Potassium [Moles/Vol] 3.8 mmol/L Normal 3.5-5.[address] [facility] Comment on above: Performed By: #### A MY, CMP, LIPA ####[facility] Vzaqspzmwy3037 [place] [address]Dr. Tadeo Smyth Protein [Mass/Vol] 7.3 g/dL Normal 6.4-8.[address] [facility] Comment on above: Performed By: #### A MY, CMP, LIPA ####[facility] Geuodeplie4809 [place] [address]Dr. Tadeo Smyth Sodium [Moles/Vol] 140 mmol/L Normal 136-[address] [facility] Comment on above: Performed By: #### A MY, CMP, LIPA ####[facility] Fxylhpkaeu0000 [place] [address]Dr. Tadeo Smyth Urea nitrogen [Mass/Vol] 21.0 mg/dL Critically high 7.0-18.[address] [facility] Comment on above: Performed By: #### A MY, CMP, LIPA ####[facility] Mccotiywbv6578 [place] [address]Dr. Tadeo Smyth Urea nitrogen/Creatinine [Mass ratio] 21.6 mg/mg Normal [facility] Comment on above: Performed By: #### A MY, CMP, LIPA ####[facility] Aytxzdfnka9524 [place] [address]Dr. Tadeo Smyth URINE MICROSCOPIC ONLYon BACTERIA NONE SEEN Normal NONE SEEN [facility] Comment on above: Performed By: #### Matthew FRANCISCO UMICRO ####[facility] Qurzlnqhgl2548 [place] [address]Dr. Tadeo Smyth Bacteria identified Cx Nom (U) NOT INDICATED Normal [facility] Comment on above: Performed By: #### Matthew FRANCISCO UMICRO ####[facility] Ihsmwfuztz6969 [place] [address]Dr. Tadeo Smyth CAST NONE SEEN Normal NONE SEEN [facility] Comment on above: Performed By: #### Matthew FRANCISCO UMICRO ####[facility] Mirrvgjypb[address] [place], [place] [address]Dr. Tadeo Smyth Crystals LM Nom (Urine sed) NONE SEEN Normal NONE SEEN [facility] Comment on above: Performed By: #### Matthew FRANCISCO UMICRO ####[facility] Hkqszhkdab[address] [place], [place] [address]Dr. Tadeo Smyth Epithelial cells LM Ql (Urine sed) FEW Abnormal NONE SEEN /RARE [facility] Comment on above: Performed By: #### Matthew FRANCISCO UMICRO ####[facility] Gsbtvzwvcr[address] [place], [place] [address]Dr. Tadeo Smyth MUCOUS NONE SEEN Normal NONE SEEN [facility] Comment on above: Performed By: #### Matthew FRANCISCO UMICRO ####[facility] Qiopmlezqj4948 [place] [address]Dr. Tadeo Smyth RBC 0-2 Normal 0-[address] [facility] Comment on above: Performed By: #### Matthew FRANCISCO UMICRO ####[facility] Wqsmionmzm2114 [place] [address]Dr. Tadeo Smyth WBC NONE SEEN Normal NONE SEEN [facility] Comment on above: Performed By: #### Matthew FRANCISCO UMICRO ####[facility] Lpqmglsyrb2043 [place] [phone]. Tadeo Smyth MICRO OTHER TESTSOrdered By: Guillermo Rocha on 04-29-2022 Fecal WBC Lactoferrin Negative (04/29/22 8:00 AM) Normal Negative [facility] Man Sero CULTURE URINEon 03-31-2022 CULTURE URINE Normal [facility] Comment on above: Performed By: #### U RCX ####[facility] U[address]flkocxl9[address] [place], [place] [address]Dr. Tadeo Smyth CBC AUTO DIFFon 03-30-2022 BASO # 0.0 103/ul Normal 0.0-0.[address] [facility] Comment on above: Performed By: #### C BC ####[facility] Yemcnsdbjz[address] [place], [place] [address]Dr. Tadeo Smyth Basophils/100 WBC (Bld) 0.4 % Normal 0.2-2.[address] [facility] Comment on above: Performed By: #### C BC ####[facility] Uprpjaotgy[address] [place], [place] [address]Dr. Tadeo Smyth EO # 0.3 103/ul Normal 0.0-0.[address] [facility] Comment on above: Performed By: #### C BC ####[facility] Jnmlqsvtxd96[address] [place], [place] [address]Dr. Tadeo Smyth Eosinophils/100 WBC (Bld) 5.1 % Normal 0.9-7.[address] [facility] Comment on above: Performed By: #### C BC ####[facility] Atyzmwutra056[address] [place], [place] [address]Dr. Tadeo Smyth Erythrocyte distribution width (RBC) [Ratio] 12.8 % Normal 11.0-15.[address] [facility] Comment on above: Performed By: #### C BC ####[facility] Nwkhxceegr[address] [place], [place] [address]Dr. Tadeo Smyth Hematocrit (Bld) [Volume fraction] 36.4 % Normal 36.0-48.[address] [facility] Comment on above: Performed By: #### C BC ####[facility] Fjnhqyylfd6639 [place] [address]Dr. Margotnicole Smyth Hemoglobin (Bld) [Mass/Vol] 12.0 g/dL Normal 12.0-16.[address] [facility] Comment on above: Performed By: #### C BC ####[facility] Zlwbkqweun5908 [place] [address]Dr. Tadeo Smyth IG # 0.02 10e3/ul Normal 0.00-0.[address] [facility] Comment on above: Performed By: #### C BC ####[facility] [address]zjgxasey[address] [place], [place] [address]Dr. Tadeo Haja IG % 0.4 % Normal 0.0-0.[address] [facility] Comment on above: Performed By: #### C BC ####[facility] Wskkldmjdg[address] [place], [place] [address]DrNeo Smyth LYMPH # 1.4 103/ul Normal 1.2-3.[address] [facility] Comment on above: Performed By: #### C BC ####[facility] Qilvjbwnsh[address] [place], [place] [address]Dr. Margotnicole Smyth Lymphocytes/100 WBC (Bld) 25.5 % Normal 20.5-60.[address] [facility] Comment on above: Performed By: #### C BC ####[facility] [facility] Eelzvyqkyh[address] [place], [place] [address]Dr. Margotnicole Smyth MANUAL DIFF REQ NO Normal [facility] Comment on above: Performed By: #### C BC ####[facility] Lssbosdbhi445[address] [place], [place] [address]DrNeo Tadeo Haja MCH (RBC) [Entitic mass] 29.1 pg Normal 26.7-34.[address] [facility] Comment on above: Performed By: #### C BC ####[facility] Dvdfptekpg[address] [place], [place] [address]DrNeo Smyth MCHC (RBC) [Mass/Vol] 33.0 g/dL Normal 29.9-35.[address] [facility] Comment on above: Performed By: #### C BC ####[facility] Hxsmubumwy9036[address] [place], [place] [address]Dr. Tadeo Smyth MCV (RBC) [Entitic vol] 88.3 fL Normal 81.0-99.[address] [facility] Comment on above: Performed By: #### C BC ####[facility] Zsxhqdssgr[address] [place] [address]Dr. Tadeo Smyth MONO # 0.4 103/ul Normal 0.3-0.[address] [facility] Comment on above: Performed By: #### C BC ####[facility] Qskitpwsqg478[address] [place], [place] [address]Dr. Tadeo Haja Monocytes/100 WBC (Bld) 7.1 % Normal 1.7-12.[address] [facility] Comment on above: Performed By: #### C BC ####[facility] Hjwujiryyz53[address] [place], [place] [address]Dr. Tadeo Smyth NEUT # 3.4 103/ul Normal 1.4-6.[address] [facility] Comment on above: Performed By: #### C BC ####[facility] Fdhqdfdgeo03[address] [place], [place] [address]Dr. Tadeo Smyth Neutrophils/100 WBC (Bld) 61.5 % Normal 43.0-75.[address] [facility] Comment on above: Performed By: #### C BC ####[facility] Kteyttkhqz8528[address] [place], [place] [address]Dr. Tadeo Haja Platelet mean volume (Bld) [Entitic vol] 8.8 fL Critically low 9.5-13.[address] [facility] Comment on above: Performed By: #### C BC ####[facility] Sxdjtjathb8[address] [place], [place] [address]Dr. Tadeo Haja PLT 324 103/ul Normal 150-[address] [facility] Comment on above: Performed By: #### C BC ####[facility] Abkanrxlsi8[address] [place], [place] [address]DrNeo Frostnicole Haja RBC 4.12 106/ul Critically low 4.20-5.[address] [facility] Comment on above: Performed By: #### C BC ####[facility] Opgtnxaxgm81985[address] [place], [place] [address]Dr. Tadeo Smyth WBC 5.5 103/ul Normal 4.0-11.0 [facility] Comment on above: Performed By: #### C BC ####[facility] Bdnrlncqnf360[address] [place], [place] [address]DrNeo Smyth PROF 14(COMP METB)on 022 Albumin [Mass/Vol] 3.1 g/dL Critically low 3.4-5.0 [facility] Comment on above: Performed By: #### C MP ####[facility] Btashzdryv4628[address] [place], [place] [address]Dr. Tadeo Smyth Albumin/Globulin [Mass ratio] 0.9 {ratio} Normal [facility] Comment on above: Performed By: #### C MP ####[facility] Cnwlifuvtv83[address] [place], [place] [address]Dr. Tadeo Smyth ALP [Catalytic activity/Vol] 119 U/L Critically high 46-116 [facility] Comment on above: Performed By: #### C MP ####[facility] Rbllxhmjub313[address] [place], [place] [address]Dr. Tadeo Smyth ALT [Catalytic activity/Vol] 17 U/L Normal 14-59 [facility] Comment on above: Performed By: #### C MP ####[facility] Bigzdqzzzx7260[address] [place], [place] [address]Dr. Tadeo Smyth Anion gap [Moles/Vol] 12.0 mmol/L Normal [facility] Comment on above: Performed By: #### C MP ####[facility] Ieqmxjfifh5814[address] [place], [place] [address]Dr. Tadeo Smyth AST [Catalytic activity/Vol] 16 U/L Normal 15-37 [facility] Comment on above: Performed By: #### C MP ####[facility] Uovhiuicpi414[address] [place], [place] [address]Dr. Tadeo Smyth Bilirubin [Mass/Vol] 0.4 mg/dL Normal 0.2-1.0 [facility] Comment on above: Performed By: #### C MP ####[facility] Wkrmgoqett8038[address] [place], [place] [address]Dr. Tadeo Smyth Calcium [Mass/Vol] 8.9 mg/dL Normal 8.5-10.[address] [facility] Comment on above: Performed By: #### C MP ####[facility] Hutrfnvbsf[address] [place] [address]Dr. Tadeo Smyth Chloride [Moles/Vol] 107 mmol/L Normal 98-[address] [facility] Comment on above: Performed By: #### C MP ####[facility] Eergchrwrv6137 [place] [address]Dr. Tadeo Smyth CO2 [Moles/Vol] 26.9 mmol/L Normal 21.0-32.[address] [facility] Comment on above: Performed By: #### C MP ####[facility] Ldjymxoycq555[address] [place], [place] [address]Dr. Tadeo Smyth Creatinine [Mass/Vol] 0.82 mg/dL Normal 0.55-1.[address] [facility] Comment on above: Performed By: #### C MP ####[facility] Expfgkbodu822[address] [place], [place] [address]Dr. Tadeo Smyth EGFR-AF BRUNEIAN >60 Normal >=[address] [facility] Comment on above: Performed By: #### C MP ####[facility] Ftscgyqdty6711[address] [place], [place] [address]Dr. Tadeo Smyth EGFR-NON AF BRUNEIAN >60 Normal >=[address] [facility] Comment on above: Performed By: #### C MP ####[facility] Mowzgvdves5033[address] [place], [place] [address]Dr. Tadeo Smyth Globulin (S) [Mass/Vol] 3.5 g/dL Normal [facility] Comment on above: Performed By: #### C MP ####[facility] [address]yjeickkf[address] [place] [address]Dr. Tadeo Haja Glucose [Mass/Vol] 104 mg/dL Normal 74-[address] [facility] Comment on above: Performed By: #### C MP ####[facility] Yjceesbblr9830[address] [place], [place] [address]Dr. Margotnicole Smyth Potassium [Moles/Vol] 3.9 mmol/L Normal 3.5-5.[address] [facility] Comment on above: Performed By: #### C MP ####[facility] Atqiyqewry0233 [place] [address]Dr. aTdeo Smyth Protein [Mass/Vol] 6.6 g/dL Normal 6.4-8.[address] [facility] Comment on above: Performed By: #### C MP ####[facility] Seckzeifmm505[address] [place], [place] [address]Dr. Tadeo Smyth Sodium [Moles/Vol] 142 mmol/L Normal 136-[address] [facility] Comment on above: Performed By: #### C MP ####[facility] Bnxpeigdbt046257 [address] [place], [place] [address]Dr. Tadeo Smyth Urea nitrogen [Mass/Vol] 5.0 mg/dL Critically low 7.0-18.[address] [facility] Comment on above: Performed By: #### C MP ####[facility] Xsprhhjleg014[address] [place], [place] [address]Dr. Tadeo Smyth Urea nitrogen/Creatinine [Mass ratio] 6.1 mg/mg Normal [facility] Comment on above: Performed By: #### C MP ####[facility] Afjrzsoevj503[address] [place], [place] [address]Dr. Tadeo Smyth CBC AUTO DIFFon 03-29-2022 BASO # 0.0 103/ul Normal 0.0-0.[address] [facility] Comment on above: Performed By: #### C BC ####[facility] Lercsskksr5623[address] [place], [place] [address]Dr. Tadeo Smyth Basophils/100 WBC (Bld) 0.4 % Normal 0.2-2.[address] [facility] Comment on above: Performed By: #### C BC ####[facility] Olczrkclod9210[address] [place], [place] [address]Dr. Tadeo Smyth EO # 0.2 103/ul Normal 0.0-0.[address] [facility] Comment on above: Performed By: #### C BC ####[facility] Ppdvuejrrv[address] [place], [place] [address]Dr. Tadeo Haja Eosinophils/100 WBC (Bld) 4.3 % Normal 0.9-7.0 [facility] Comment on above: Performed By: #### C BC ####[facility] Mmjrfpzrye1712 [place] [address]Dr. Tadeo Haja Erythrocyte distribution width (RBC) [Ratio] 12.9 % Normal 11.0-15.0 [facility] Comment on above: Performed By: #### C BC ####[facility] Bjmycfujaw513[address] [place], [place] [address]Dr. Tadeo Smyth Hematocrit (Bld) [Volume fraction] 33.8 % Critically low 36.0-48.[address] [facility] Comment on above: Performed By: #### C BC ####[facility] Rgzicrnphl426[address] [place], [place] [address]Dr. Tadeo Smyth Hemoglobin (Bld) [Mass/Vol] 11.1 g/dL Critically low 12.0-16.[address] [facility] Comment on above: Performed By: #### C BC ####[facility] Xhiwgczrfp339[address] [place], [place] [address]Dr. Tadeo Smyth IG # 0.01 10e3/ul Normal 0.00-0.[address] [facility] Comment on above: Performed By: #### C BC ####[facility] Mrbyvxqxvm350[address] [place], [place] [address]Dr. Tadeo Smyth IG % 0.2 % Normal 0.0-0.[address] [facility] Comment on above: Performed By: #### C BC ####[facility] Gaegmkqcog109[address] [place], [place] [address]Dr. Tadeo Smyth LYMPH # 1.5 103/ul Normal 1.2-3.[address] [facility] Comment on above: Performed By: #### C BC ####[facility] Lhqotaprqq475[address] [place], [place] [address]Dr. Tadeo Smyth Lymphocytes/100 WBC (Bld) 29.9 % Normal 20.5-60.[address] [facility] Comment on above: Performed By: #### C BC ####[facility] Waxwdtrybw624[address] [place], [place] [address]Dr. Tadeo Smyth MANUAL DIFF REQ NO Normal [facility] Comment on above: Performed By: #### C BC ####[facility] Fonnsosjwx5769 [place] [address]DrNeo Tadeo Haja MCH (RBC) [Entitic mass] 29.3 pg Normal 26.7-34.0 [facility] Comment on above: Performed By: #### C BC ####[facility] Mjoypgioul7681 [place] [address]DrNeo Smyth MCHC (RBC) [Mass/Vol] 32.8 g/dL Normal 29.9-35.2 [facility] Comment on above: Performed By: #### C BC ####[facility] Ayxddabgls5220 [place] [address]DrNeo Smyth MCV (RBC) [Entitic vol] 89.2 fL Normal 81.0-99.0 [facility] Comment on above: Performed By: #### C BC ####[facility] Nsuvnvdsif22[address] [place], [place] [address]DrNeo Smyth MONO # 0.4 103/ul Normal 0.3-0.[address] [facility] Comment on above: Performed By: #### C BC ####[facility] Icdyhhfjyu448[address] [place], [place] [address]DrNeo Smyth Monocytes/100 WBC (Bld) 7.8 % Normal 1.7-12.[address] [facility] Comment on above: Performed By: #### C BC ####[facility] Yxcwltfjae715[address] [place], [place] [address]DrNeo Smyth NEUT # 2.8 103/ul Normal 1.4-6.[address] [facility] Comment on above: Performed By: #### C BC ####[facility] Zwmbvwbnwr[address] [place], [place] [address]DrNeo Smyth Neutrophils/100 WBC (Bld) 57.4 % Normal 43.0-75.[address] [facility] Comment on above: Performed By: #### C BC ####[facility] Okcvfsoxbc418[address] [place], [place] [address]DrNeo Smyth Platelet mean volume (Bld) [Entitic vol] 8.9 fL Critically low 9.5-13.5 [facility] Comment on above: Performed By: #### C BC ####[facility] Scbkgfffaf8650 [place] [address]Dr. Margotnicole Haja PLT 314 103/ul Normal 150-450 [facility] Comment on above: Performed By: #### C BC ####[facility] Hbqjwzddwb9589 [place] [address]Dr. Margotnicole Haja RBC 3.79 106/ul Critically low 4.20-5.40 [facility] Comment on above: Performed By: #### C BC ####[facility] Gxghkxcpvg1821 [place] [address]Dr. Tadeo Smyth WBC 4.9 103/ul Normal 4.0-11.0 [facility] Comment on above: Performed By: #### C BC ####[facility] Awwwavmvgd1921 [place] [address]DrNeo Smyth PROF 14(COMP METB)on 022 Albumin [Mass/Vol] 2.8 g/dL Critically low 3.4-5.0 [facility] Comment on above: Performed By: #### C MP ####[facility] Tfnqrkwcmy5989 [place] [address]DrNeo Smyth Albumin/Globulin [Mass ratio] 0.8 {ratio} Normal [facility] Comment on above: Performed By: #### C MP ####[facility] Qaevqmwokd8021 [place] [address]DrNeo Smyth ALP [Catalytic activity/Vol] 117 U/L Critically high 46-116 [facility] Comment on above: Performed By: #### C MP ####[facility] Vdydhudbuk7702 [place] [address]DrNeo mSyth ALT [Catalytic activity/Vol] 13 U/L Critically low 14-59 [facility] Comment on above: Performed By: #### C MP ####[facility] Mdjgdqtovp0679 [place] [address]DrNeo Smyth Anion gap [Moles/Vol] 8.7 mmol/L Normal [facility] Comment on above: Performed By: #### C MP ####[facility] Nfvxlnuqqn4235 [place] [address]Dr. Tadeo Smyth AST [Catalytic activity/Vol] 12 U/L Critically low 15-37 [facility] Comment on above: Performed By: #### C MP ####[facility] Dhequpfozg39[address] [place], [place] [address]Dr. Tadeo Smyth Bilirubin [Mass/Vol] 0.4 mg/dL Normal 0.2-1.0 [facility] Comment on above: Performed By: #### C MP ####[facility] Lpfsrvtlpd264[address] [place], [place] [address]Dr. Tadeo Smyth Calcium [Mass/Vol] 8.5 mg/dL Normal 8.5-10.1 [facility] Comment on above: Performed By: #### C MP ####[facility] Isqrgcvdre737[address] [place], [place] [address]Dr. Tadeo Smyth Chloride [Moles/Vol] 108 mmol/L Critically high 98-107 [facility] Comment on above: Performed By: #### C MP ####[facility] Tnvhgvmkxw0811[address] [place], [place] [address]Dr. Tadeo Smyth CO2 [Moles/Vol] 28.0 mmol/L Normal 21.0-32.0 [facility] Comment on above: Performed By: #### C MP ####[facility] Isejrdqzhw613[address] [place], [place] [address]Dr. Tadeo Smyth Creatinine [Mass/Vol] 0.74 mg/dL Normal 0.55-1.02 [facility] Comment on above: Performed By: #### C MP ####[facility] Eyozuabvme215[address] [place], [place] [address]Dr. Margotnicole Haja EGFR-AF BRUNEIAN >60 Normal >=[address] [facility] Comment on above: Performed By: #### C MP ####[facility] Sxaexkfgsq809[address] [place], [place] [address]Dr. Tadeo Smyth EGFR-NON AF BRUNEIAN >60 Normal >=[address] [facility] Comment on above: Performed By: #### C MP ####[facility] Xxndmuxkxs2766 [place] [address]Dr. Tadeo Smyth Globulin (S) [Mass/Vol] 3.4 g/dL Normal [facility] Comment on above: Performed By: #### C MP ####[facility] Hdsvjpzpkw8224 [place] [address]Dr. Tadeo Smyth Glucose [Mass/Vol] 107 mg/dL Critically high 74-106 [facility] Comment on above: Performed By: #### C MP ####[facility] Dbqhmzjbpr9860 [place] [address]Dr. Tadeo Smyth Potassium [Moles/Vol] 3.7 mmol/L Normal 3.5-5.1 [facility] Comment on above: Performed By: #### C MP ####[facility] Bqiuoggzsz928[address] [place], [place] [address]Dr. Tadeo Smyth Protein [Mass/Vol] 6.2 g/dL Critically low 6.4-8.2 [facility] Comment on above: Performed By: #### C MP ####[facility] Hfsklevake935[address] [place], [place] [address]Dr. Tadeo Smyth Sodium [Moles/Vol] 141 mmol/L Normal 136-145 [facility] Comment on above: Performed By: #### C MP ####[facility] Rvqifedvtm827[address] [place], [place] [address]Dr. Tadeo Smyth Urea nitrogen [Mass/Vol] 7.0 mg/dL Normal 7.0-18.0 [facility] Comment on above: Performed By: #### C MP ####[facility] Seibdgkvem769[address] [place], [place] [address]Dr. Tadeo Smyth Urea nitrogen/Creatinine [Mass ratio] 9.5 mg/mg Normal [facility] Comment on above: Performed By: #### C MP ####[facility] Fwexgvacjj254[address] [place], [place] [address]Dr. Tadeo Smyth XR KUB 1 VIEWon 03-29-2022 XR KUB 1 VIEW Normal [facility] CBC AUTO DIFFon 03-28-2022 BASO # 0.0 103/ul Normal 0.0-0.[address] [facility] Comment on above: Performed By: #### C BC ####[facility] Surtzbumlq7959 [place] [address]Dr. Tadeo Smyth Basophils/100 WBC (Bld) 0.7 % Normal 0.2-2.[address] [facility] Comment on above: Performed By: #### C BC ####[facility] Hqbplbyjoa71[address] [place], [place] [address]Dr. Tadeo Smyth EO # 0.2 103/ul Normal 0.0-0.[address] [facility] Comment on above: Performed By: #### C BC ####[facility] Xnvjmtoaty1914[address] [place], [place] [address]Dr. Tadeo Msyth Eosinophils/100 WBC (Bld) 3.3 % Normal 0.9-7.[address] [facility] Comment on above: Performed By: #### C BC ####[facility] Wuheqiqfvj847[address] [place], [place] [address]Dr. Tadeo Smyth Erythrocyte distribution width (RBC) [Ratio] 13.2 % Normal 11.0-15.0 [facility] Comment on above: Performed By: #### C BC ####[facility] Trflpmaxyx5360[address] [place], [place] [address]Dr. Tadeo Smyth Hematocrit (Bld) [Volume fraction] 34.2 % Critically low 36.0-48.0 [facility] Comment on above: Performed By: #### C BC ####[facility] Wyjqbdemsy8569[address] [place], [place] [address]Dr. Tadeo Smyth Hemoglobin (Bld) [Mass/Vol] 10.8 g/dL Critically low 12.0-16.[address] [facility] Comment on above: Performed By: #### C BC ####[facility] Nkupeewbag3325[address] [place], [place] [address]Dr. Tadeo Smyth IG # 0.01 10e3/ul Normal 0.00-0.[address] [facility] Comment on above: Performed By: #### C BC ####[facility] Spfvnyqfqu44[address] [place], [place] [address]Dr. Tadeo Smyth IG % 0.2 % Normal 0.0-0.5 [facility] Comment on above: Performed By: #### C BC ####[facility] Rljvysicll0279 [place] [address]Dr. Tadeo Smyth LYMPH # 1.3 103/ul Normal 1.2-3.[address] [facility] Comment on above: Performed By: #### C BC ####[facility] Kmqsuixrfn9735 [place] [address]Dr. Tadeo Smyth Lymphocytes/100 WBC (Bld) 28.4 % Normal 20.5-60.[address] [facility] Comment on above: Performed By: #### C BC ####[facility] Jyfzvnyxdb70[address] [place], [place] [address]DrNeo Smyth MANUAL DIFF REQ NO Normal [facility] Comment on above: Performed By: #### C BC ####[facility] Rsxuozasho6316[address] [place], [place] [address]Dr. Margotnicole Smyth MCH (RBC) [Entitic mass] 28.3 pg Normal 26.7-34.[address] [facility] Comment on above: Performed By: #### C BC ####[facility] Vfdymwnyop989[address] [place], [place] [address]Dr. Tadeo Haja MCHC (RBC) [Mass/Vol] 31.6 g/dL Normal 29.9-35.[address] [facility] Comment on above: Performed By: #### C BC ####[facility] Cybnbhfuut217[address] [place], [place] [address]DrNeo Margotnicole Smyth MCV (RBC) [Entitic vol] 89.5 fL Normal 81.0-99.[address] [facility] Comment on above: Performed By: #### C BC ####[facility] Tclgqhheay200[address] [place], [place] [address]DrNeo Smyth MONO # 0.3 103/ul Normal 0.3-0.[address] [facility] Comment on above: Performed By: #### C BC ####[facility] Uwgrtpdduh564[address] [place], [place] [address]DrNeo Smyth Monocytes/100 WBC (Bld) 5.5 % Normal 1.7-12.[address] [facility] Comment on above: Performed By: #### C BC ####[facility] Jptdpqatyf6337 [place] [address]DrNeo Tadeo Smyth NEUT # 2.8 103/ul Normal 1.4-6.[address] [facility] Comment on above: Performed By: #### C BC ####[facility] Mpsmjamvsd4840 [place] [address]DrNeo Tadeo Smyth Neutrophils/100 WBC (Bld) 61.9 % Normal 43.0-75.[address] [facility] Comment on above: Performed By: #### C BC ####[facility] Ibjpliahst5803 [place] [address]DrNeo Smyth Platelet mean volume (Bld) [Entitic vol] 9.1 fL Critically low 9.5-13.[address] [facility] Comment on above: Performed By: #### C BC ####[facility] Sqlbmtaovx556[address] [place], [place] [address]Dr. Margotnicole Haja PLT 327 103/ul Normal 150-[address] [facility] Comment on above: Performed By: #### C BC ####[facility] Oosnghioba554[address] [place], [place] [address]DrNeo Smyth RBC 3.82 106/ul Critically low 4.20-5.[address] [facility] Comment on above: Performed By: #### C BC ####[facility] Hmnvahjqdy24[address] [place], [place] [address]DrNeo Smyth WBC 4.5 103/ul Normal 4.0-11.[address] [facility] Comment on above: Performed By: #### C BC ####[facility] Aiihynxgjf7[address] [place], [place] [address]DrNeo Smyth POINT OF CARE GLUCOSEon 072 Glucose [Mass/Vol] 84 mg/dL Normal 74-[address] [facility] Comment on above: Performed By: #### P OCGLUC ####[facility] Ukawgexkmk6940[address] [place], [place] [address]DrNeo Smyth PROF 14(COMP METB)on 022 Albumin [Mass/Vol] 2.9 g/dL Critically low 3.4-5.0 [facility] Comment on above: Performed By: #### C MP ####[facility] Anwznmgten9606 [place] [address]Dr. Tadeo Smyth Albumin/Globulin [Mass ratio] 0.9 {ratio} Normal [facility] Comment on above: Performed By: #### C MP ####[facility] Uuleyfmptq4842 [place] [address]Dr. Tadeo Smyth ALP [Catalytic activity/Vol] 119 U/L Critically high 46-116 [facility] Comment on above: Performed By: #### C MP ####[facility] Jvaogyoqyr1805[address] [place], [place] [address]Dr. Tadeo Smyth ALT [Catalytic activity/Vol] 15 U/L Normal 14-59 [facility] Comment on above: Performed By: #### C MP ####[facility] Bfyedhxhks878[address] [place], [place] [address]Dr. Tadeo Smyth Anion gap [Moles/Vol] 7.9 mmol/L Normal [facility] Comment on above: Performed By: #### C MP ####[facility] Uyvrpejfby489[address] [place], [place] [address]Dr. Tadeo Smyth AST [Catalytic activity/Vol] 11 U/L Critically low 15-37 [facility] Comment on above: Performed By: #### C MP ####[facility] Dtzokpzclu818[address] [place], [place] [address]Dr. Tadeo Smyth Bilirubin [Mass/Vol] 0.4 mg/dL Normal 0.2-1.0 [facility] Comment on above: Performed By: #### C MP ####[facility] Vkibvndhsl719[address] [place], [place] [address]Dr. Tadeo Smyth Calcium [Mass/Vol] 8.7 mg/dL Normal 8.5-10.1 [facility] Comment on above: Performed By: #### C MP ####[facility] Wpgawogxqx825[address] [place], [place] [address]Dr. Tadeo Smyth Chloride [Moles/Vol] 109 mmol/L Critically high 98-[address] [facility] Comment on above: Performed By: #### C MP ####[facility] Rqzdhlwbkz4209 [place] [address]Dr. Tadeo Smyth CO2 [Moles/Vol] 27.9 mmol/L Normal 21.0-32.[address] [facility] Comment on above: Performed By: #### C MP ####[facility] Dcodnfgltg7446 [place] [address]Dr. Tadeo Smyth Creatinine [Mass/Vol] 0.75 mg/dL Normal 0.55-1.[address] [facility] Comment on above: Performed By: #### C MP ####[facility] Jzgzsmjxfk[address] [place], [place] [address]Dr. Tadeo Smyth EGFR-AF BRUNEIAN >60 Normal >=[address] [facility] Comment on above: Performed By: #### C MP ####[facility] [address]wptvobrlz33[address] [place], [place] [address]Dr. Tadeo Smyth EGFR-NON AF BRUNEIAN >60 Normal >=[address] [facility] Comment on above: Performed By: #### C MP ####[facility] Kwlwuwcait166[address] [place], [place] [address]Dr. Tadeo Smyth Globulin (S) [Mass/Vol] 3.3 g/dL Normal [facility] Comment on above: Performed By: #### C MP ####[facility] Cmrusemifk4046 [place] [address]Dr. Tadeo Haja Glucose [Mass/Vol] 95 mg/dL Normal 74-[address] [facility] Comment on above: Performed By: #### C MP ####[facility] Rxtuurcora8425 [place] [address]Dr. Tadeo Haja Potassium [Moles/Vol] 3.8 mmol/L Normal 3.5-5.[address] [facility] Comment on above: Performed By: #### C MP ####[facility] Jxwbokyqev1240 [place] [address]Dr. Tadeo Haja Protein [Mass/Vol] 6.2 g/dL Critically low 6.4-8.[address] [facility] Comment on above: Performed By: #### C MP ####[facility] Trfevvwikx1059 [place] [address]Dr. Tadeo Smyth Sodium [Moles/Vol] 141 mmol/L Normal 136-145 [facility] Comment on above: Performed By: #### C MP ####[facility] Podyvrlnmd1864[address] [place], [place] [address]Dr. Tadeo Smyth Urea nitrogen [Mass/Vol] 8.0 mg/dL Normal 7.0-18.0 [facility] Comment on above: Performed By: #### C MP ####[facility] Aiptrsqesn64[address] [place], [place] [address]Dr. Tadeo Smyth Urea nitrogen/Creatinine [Mass ratio] 10.7 mg/mg Normal [facility] Comment on above: Performed By: #### C MP ####[facility] [address]zjblakaxn[address] [place], [place] [address]Dr. Tadeo Smyth UA (CLEAN/CATCH) LOOP DRIER OPERATOR/MICRO I F IND.on 03-28-2022 Bilirubin Ql (U) Negative Normal NEGATIVE [facility] Comment on above: Performed By: #### U RANDI GARVEYICRO ####[facility] [address]asq[address] [place], [place] [address]Dr. Tadeo Smyth Clarity (U) SL CLOUDY Abnormal CLEAR [facility] Comment on above: Performed By: #### U MARE UMICRO ####[facility] Ozycjgnclc[address] [place], [place] [address]Dr. Tadeo Smyth Color (U) LT. YELLOW Normal YELLOW [facility] Comment on above: Performed By: #### U MARE UMICRO ####[facility] [address]nwvdgtawi[address] [place], [place] [address]Dr. Tadeo Smyth Glucose Ql (U) Negative Normal NEGATIVE [facility] Comment on above: Performed By: #### U ACSBLANE UMICRO ####[facility] Tcnwegrqra[address] [place], [place] [address]Dr. Tadeo Smyth Hemoglobin Ql (U) TRACE-INTACT Abnormal NEGATIVE [facility] Comment on above: Performed By: #### U ACSBLANE UMICRO ####[facility] Wyruzjmoou[address] [place] [address]Dr. Tadeo Smyth Ketones Ql (U) TRACE Abnormal NEGATIVE [facility] Comment on above: Performed By: #### U ACSBLANE UMICRO ####[facility] Ymcpcrgklh87[address] [place] [address]Dr. Tadeo Smyth LEUKOCYTES Negative Normal NEGATIVE [facility] Comment on above: Performed By: #### U ACSBLANE UMICRO ####[facility] Yvmmydpobf[address] [place] [address]Dr. Tadeo Smyth Nitrite Ql (U) Negative Normal NEGATIVE [facility] Comment on above: Performed By: #### U ACSBLANE UMICRO ####[facility] Stkdnwkirs[address] [place] [address]Dr. Tadeo Smyth pH (U) 6.5 [pH] Normal 5-[address] [facility] Comment on above: Performed By: #### U MARE UMICRO ####[facility] Lwngtnseqh[address] [place], [place] [address]Dr. Tadeo Smyth SPEC GRAVITY 1.015 Normal 1.005-<=1.0 25 [facility] Comment on above: Performed By: #### U MARE UMICRO ####[facility] Qzatxpkukd12[address] [place] [address]Dr. Tadeo Smyth UA PROTEIN Negative Normal NEGATIVE/ TRACE [facility] Comment on above: Performed By: #### U MARE UMICRO ####[facility] Obyggkfort[address] [place], [place] [address]Dr. Tadeo Smyth UR MICRO IND INDICATED Normal [facility] Comment on above: Performed By: #### U MARE UMICRO ####[facility] Izwtayduzx[address] [place], [place] [address]Dr. Tadeo Smyth Urobilinogen Qn (U) 0.2 {Benito'U}/dL Normal 0.2 - 1. 0 [facility] Comment on above: Performed By: #### U ACSBLANE UMICRO ####[facility] Qrwlpinbkb07[address] [place] [address]Dr. Tadeo Smyth URINE MICROSCOPIC ONLYon BACTERIA MODERATE Abnormal NONE SEEN [facility] Comment on above: Performed By: #### U MARE UMICRO ####[facility] Yxgisgjkep7[address] [place] [address]Dr. Tadeo Smyth Bacteria identified Cx Nom (U) INDICATED Normal [facility] Comment on above: Performed By: #### U MARE UMICRO ####[facility] Xefpxkbjvd5581 [place] [address]Dr. Tadeo Smyth CAST NONE SEEN Normal NONE SEEN [facility] Comment on above: Performed By: #### U MARE ICRO ####[facility] Rbkcljtxwb7931 [place] [address]Dr. Tadeo Smyth Crystals LM Nom (Urine sed) NONE SEEN Normal NONE SEEN [facility] Comment on above: Performed By: #### U MARE ICRO ####[facility] Pvbshxhmqq314[address] [place], [place] [address]Dr. Tadeo Smyth Epithelial cells LM Ql (Urine sed) RARE Normal NONE SEEN /RARE [facility] Comment on above: Performed By: #### U MARE ICRO ####[facility] Znnduumoob32[address] [place] [address]Dr. Tadeo Smyth MUCOUS NONE SEEN Normal NONE SEEN [facility] Comment on above: Performed By: #### U MARE ICRO ####[facility] Qtjzhkvhvr5831 [place] [address]Dr. Tadeo Smyth RBC NONE SEEN Abnormal 0-[address] [facility] Comment on above: Performed By: #### U MARE ICRO ####[facility] Ofozitgwsv98[address] [place], [place] [address]Dr. Tadeo Smyth WBC 2-5 Abnormal NONE SEEN [facility] Comment on above: Performed By: #### U MARE UMICRO ####[facility] Ymggoxdxst[address] [place], [place] [address]Dr. Tadeo Smyth XR ABD FLAT UP_PA Kasey 03-28 XR ABD FLAT UP_PA CH Normal [facility] CBC AUTO DIFFon 03-27-2022 BASO # 0.0 103/ul Normal 0.0-0.[address] [facility] Comment on above: Performed By: #### C BC ####[facility] Enxtbawvmq5527 [place] [address]Dr. Tadeo Smyth Basophils/100 WBC (Bld) 0.5 % Normal 0.2-2.[address] [facility] Comment on above: Performed By: #### C BC ####[facility] Itztememdv[address] [place], [place] [address]Dr. Tadeo Smyth EO # 0.2 103/ul Normal 0.0-0.[address] [facility] Comment on above: Performed By: #### C BC ####[facility] Blmlnncolt18[address] [place], [place] [address]Dr. Tadeo Smyth Eosinophils/100 WBC (Bld) 3.2 % Normal 0.9-7.[address] [facility] Comment on above: Performed By: #### C BC ####[facility] X[address]frkdpu[address] [place], [place] [address]Dr. Tadeo Smyth Erythrocyte distribution width (RBC) [Ratio] 13.1 % Normal 11.0-15.[address] [facility] Comment on above: Performed By: #### C BC ####[facility] Mjyeddwpaq[address] [place], [place] [address]Dr. Tadeo Smyth Hematocrit (Bld) [Volume fraction] 34.8 % Critically low 36.0-48.[address] [facility] Comment on above: Performed By: #### C BC ####[facility] Hgsthisxyo[address] [place], [place] [address]Dr. Tadeo Smyth Hemoglobin (Bld) [Mass/Vol] 11.3 g/dL Critically low 12.0-16.[address] [facility] Comment on above: Performed By: #### C BC ####[facility] Junhqkabur[address] [place], [place] [address]Dr. Tadeo Smyth IG # 0.01 10e3/ul Normal 0.00-0.[address] [facility] Comment on above: Performed By: #### C BC ####[facility] Zvtpucguqz8525 [place] [address]Dr. Tadeo Smyth IG % 0.2 % Normal 0.0-0.5 [facility] Comment on above: Performed By: #### C BC ####[facility] Rvvmncecru0189 [place] [address]Dr. Tadeo Smyth LYMPH # 1.6 103/ul Normal 1.2-3.[address] [facility] Comment on above: Performed By: #### C BC ####[facility] Jaqpbllewq320[address] [place], [place] [address]Dr. Tadeo Haja Lymphocytes/100 WBC (Bld) 29.1 % Normal 20.5-60.0 [facility] Comment on above: Performed By: #### C BC ####[facility] Zmwbsfitfw025[address] [place], [place] [address]Dr. Margotnicole Smyth MANUAL DIFF REQ NO Normal [facility] Comment on above: Performed By: #### C BC ####[facility] Qpnxqlirrr75[address] [place], [place] [address]Dr. Tadeo Smyth MCH (RBC) [Entitic mass] 29.1 pg Normal 26.7-34.0 [facility] Comment on above: Performed By: #### C BC ####[facility] Lipwmtmxdy63[address] [place], [place] [address]Dr. Tadeo Smyth MCHC (RBC) [Mass/Vol] 32.5 g/dL Normal 29.9-35.[address] [facility] Comment on above: Performed By: #### C BC ####[facility] Fdqtiptkqc617[address] [place], [place] [address]Dr. Tadeo Smyth MCV (RBC) [Entitic vol] 89.7 fL Normal 81.0-99.[address] [facility] Comment on above: Performed By: #### C BC ####[facility] Jpykeoipwj[address] [place], [place] [address]Dr. Tadeo Haja MONO # 0.3 103/ul Normal 0.3-0.[address] [facility] Comment on above: Performed By: #### C BC ####[facility] Dmiccsdehe0544 [place] [phone]. Tadeo Smyth Monocytes/100 WBC (Bld) 5.7 % Normal 1.7-12.[address] [facility] Comment on above: Performed By: #### C BC ####[facility] Njwwjxfxfw7747 [place] [phone]. Tadeo Smyth NEUT # 3.5 103/ul Normal 1.4-6.[address] [facility] Comment on above: Performed By: #### C BC ####[facility] Fsrsszbnay0353 [place] [phone]. Tadeo Smyth Neutrophils/100 WBC (Bld) 61.3 % Normal 43.0-75.[address] [facility] Comment on above: Performed By: #### C BC ####[facility] Gdsemkiklh100[address] [place] [address]Dr. Tadeo Smyth Platelet mean volume (Bld) [Entitic vol] 9.1 fL Critically low 9.5-13.5 [facility] Comment on above: Performed By: #### C BC ####[facility] Qglfwvgutc8131 [place] [address]Dr. Tadeo Smyth PLT 355 103/ul Normal 150-[address] [facility] Comment on above: Performed By: #### C BC ####[facility] Vlhlydpyqo8332 [place] [address]Dr. Tadeo Smyth RBC 3.88 106/ul Critically low 4.20-5.[address] [facility] Comment on above: Performed By: #### C BC ####[facility] Zexfwunppp2529 [place] [phone]. Tadeo Smyth WBC 5.6 103/ul Normal 4.0-11.[address] [facility] Comment on above: Performed By: #### C BC ####[facility] Bppoisqyqd450[address] [place] [address]Dr. Tade[address] S[address] CT ABD/PELV W CONon 03-27-20 CT ABD/PELV W CON Normal [facility] CT ABD/PELVIS WO CONon 03-27 CT ABD/PELVIS WO CON Normal [facility] Covid-19 PCR (CVDTB)on 03-06 SARS-CoV-2 (COVID-19) RNA CHEN+probe Ql (Unsp spec) Not detected Normal NOT DETECTED [facility] Comment on above: Result Comment: When [...] for this test is supported by the [place] [employer]'s declaration that [...] be used). Performed By: #### C VDTBH ####[facility] Anjcszxdpa306[address] [place], [place] [address]Dr. Tadeo Smyth ER URINE PROFILEon Bilirubin Ql (U) Negative Normal NEGATIVE [facility] Comment on above: Performed By: #### E SARAH BETHR, PREGU ####[facility] Hqhgwkxwee[address] [place], [place] [address]Dr. Tadeo Smyth Clarity (U) CLEAR Normal CLEAR [facility] Comment on above: Performed By: #### E RUR, PREGU ####[facility] Dgrrthtlxe33[address] [place], [place] [address]DrNeo Smyth Color (U) LT. YELLOW Normal YELLOW [facility] Comment on above: Performed By: #### E RUR, PREGU ####[facility] Terggbozah[address] [place], [place] [address]Dr. Tadeo Smyth ERUAHD A micrscopic examina tion will be performed if indicated. Normal [facility] Comment on above: Performed By: #### Matthew RUR, PREGU ####[facility] Eleahzdmac[address] [place], [place] [address]Dr. Tadeo Smyth Glucose Ql (U) Negative Normal NEGATIVE [facility] Comment on above: Performed By: #### E RUR, PREGU ####[facility] Huhlzankkl367[address] [place], [place] [address]Dr. Tadeo Smyth Hemoglobin Ql (U) SMALL Abnormal NEGATIVE [facility] Comment on above: Performed By: #### Matthew RUR, PREGU ####[facility] Gzdjkuqrxq16[address] [place], [place] [address]Dr. Tadeo Smyth Ketones Ql (U) TRACE Abnormal NEGATIVE [facility] Comment on above: Performed By: #### Matthew FRANCISCO, PREGU ####[facility] Oqjvpiwufv[address] [place], [place] [address]Dr. Tadeo Smyth LEUKOCYTES Negative Normal NEGATIVE [facility] Comment on above: Performed By: #### Matthew FRANCISCO, PREGU ####[facility] Ogtumqsltu396[address] [place], [place] [address]Dr. Tadeo Smyth Nitrite Ql (U) Negative Normal NEGATIVE [facility] Comment on above: Performed By: #### Matthew FRANCISCO, PREGU ####[facility] Lfzivtpspn34[address] [place], [place] [address]Dr. Tadeo Smyth pH (U) 6.0 [pH] Normal 5-[address] [facility] Comment on above: Performed By: #### Matthew FRANCISCO, PREGU ####[facility] [address]erhzlmw[address] [place], [place] [address]Dr. Tadeo Smyth SPEC GRAVITY >=1.030 Abnormal 1.005-<=1.[address] [facility] Comment on above: Performed By: #### Matthew FRANCISCO, PREGU ####[facility] Qvhwyxcqdc[address] [place], [place] [address]Dr. Tadeo Smyth UA PROTEIN Negative Normal NEGATIVE/ TRACE [facility] Comment on above: Performed By: #### Matthew BURLESONR, PREGU ####[facility] Rxejgnpziw[address] [place], [place] [address]Dr. Tadeo Smyth UR MICRO IND NOT INDICATED Normal [facility] Comment on above: Performed By: #### E RUR, PREGU ####[facility] Rryorhckns9551 [place] [address]Dr. Tadeo Smyth Urobilinogen Qn (U) 0.2 {Benito'U}/dL Normal 0.2 - 1. [address] [facility] Comment on above: Performed By: #### E RUR, PREGU ####[facility] Vfopiunboy90[address] [place], [place] [address]Dr. Tadeo Smyth LIPASEon 03-27-2022 Lipase [Catalytic activity/Vol] 126.0 U/L Normal 73.0-393.[address] [facility] Comment on above: Performed By: #### L IPA, CMP ####[facility] Riqwrpzahn[address] [place], [place] [address]Dr. Margotnicole Smyth URon 03-27-2022 , QUAL Negative Normal NEGATIVE [facility] Comment on above: Performed By: #### E RUR, PREGU ####[facility] Hfenjqowkb64[address] [place], [place] [address]Dr. Tadeo Smyth PROF 14(COMP METB)on 022 Albumin [Mass/Vol] 3.6 g/dL Normal 3.4-5.[address] [facility] Comment on above: Performed By: #### L IPA, CMP ####[facility] [address]jzmwxx[address] [place], [place] [address]Dr. Tadeo Smyth Albumin/Globulin [Mass ratio] 1.1 {ratio} Normal [facility] Comment on above: Performed By: #### L IPA, CMP ####[facility] Eukyojrqdo380[address] [place] [address]Dr. Tadeo Smyth ALP [Catalytic activity/Vol] 139 U/L Critically high 46-[address] [facility] Comment on above: Performed By: #### L IPA, CMP ####[facility] Edggvwsqdf8839[address] [place], [place] [address]Dr. Tadeo Smyth ALT [Catalytic activity/Vol] 18 U/L Normal 14-[address] [facility] Comment on above: Performed By: #### L IPA, CMP ####[facility] Aknzjzazsf7[address] [place] [address]Dr. Tadeo Smyth Anion gap [Moles/Vol] 10.7 mmol/L Normal [facility] Comment on above: Performed By: #### L IPA, CMP ####[facility] Sluocjmsgw4755 [place] [address]Dr. Tadeo Smyth AST [Catalytic activity/Vol] 11 U/L Critically low 15-37 [facility] Comment on above: Performed By: #### L IPA, CMP ####[facility] Gryymhaqto[address] [place], [place] [address]Dr. Tadeo Smyth Bilirubin [Mass/Vol] 0.2 mg/dL Normal 0.2-1.0 [facility] Comment on above: Performed By: #### L IPA, CMP ####[facility] [address]aiqshgvg[address] [place], [place] [address]Dr. Tadeo Smyth Calcium [Mass/Vol] 9.0 mg/dL Normal 8.5-10.1 [facility] Comment on above: Performed By: #### L IPA, CMP ####[facility] Nyvnhlczka[address] [place], [place] [address]Dr. Tadeo Haja Chloride [Moles/Vol] 106 mmol/L Normal 98-[address] [facility] Comment on above: Performed By: #### L IPA, CMP ####[facility] Kbzijvkjeg[address] [place], [place] [address]Dr. Tadeo Smyth CO2 [Moles/Vol] 26.9 mmol/L Normal 21.0-32.0 [facility] Comment on above: Performed By: #### L IPA, CMP ####[facility] Tpkdjvrqmm[address] [place], [place] [address]Dr. Tadeo Smyth Creatinine [Mass/Vol] 0.84 mg/dL Normal 0.55-1.02 [facility] Comment on above: Performed By: #### L IPA, CMP ####[facility] Ddxsvdbefs[address] [place], [place] [address]Dr. Tadeo Haja EGFR-AF BRUNEIAN >60 Normal >=60 [facility] Comment on above: Performed By: #### L IPA, CMP ####[facility] Ttxxltzicx0381 [place] [address]Dr. Tadeo Smyth EGFR-NON AF BRUNEIAN >60 Normal >=[address] [facility] Comment on above: Performed By: #### L IPA, CMP ####[facility] Ekfivknvrd8193 [place] [address]Dr. Tadeo Smyth Globulin (S) [Mass/Vol] 3.4 g/dL Normal [facility] Comment on above: Performed By: #### L IPA, CMP ####[facility] Cctdrgpxrj[address] [place], [place] [address]Dr. Tadeo Smyth Glucose [Mass/Vol] 96 mg/dL Normal 74-106 [facility] Comment on above: Performed By: #### L IPA, CMP ####[facility] Qdftexrksv9[address] [place], [place] [address]Dr. Margotnicole Smyth Potassium [Moles/Vol] 3.6 mmol/L Normal 3.5-5.[address] [facility] Comment on above: Performed By: #### L IPA, CMP ####[facility] [address]vqvfkul18[address] [place], [place] [address]Dr. Tadeo Smyth Protein [Mass/Vol] 7.0 g/dL Normal 6.4-8.[address] [facility] Comment on above: Performed By: #### L IPA, CMP ####[facility] Xwrymbgheu65[address] [place], [place] [address]Dr. Tadeo Smyth Sodium [Moles/Vol] 140 mmol/L Normal 136-[address] [facility] Comment on above: Performed By: #### L IPA, CMP ####[facility] [address]fwmeszeg[address] [place], [place] [address]Dr. Tadeo Smyth Urea nitrogen [Mass/Vol] 23.0 mg/dL Critically high 7.0-18.[address] [facility] Comment on above: Performed By: #### L IPA, CMP ####[facility] Mxxfdixhqb[address] [place], [place] [address]Dr. Tadeo Smyth Urea nitrogen/Creatinine [Mass ratio] 27.4 mg/mg Normal [facility] Comment on above: Performed By: #### L IPA, CMP ####[facility] Hiybbeofud[address] [place], [place] [address]Dr. Tadeo Smyth GROUP A STREP CULTUREon S. pyogenes Ag Ql (Unsp spec) Normal [facility] Comment on above: Performed By: #### G RASTCX, SSCRN ####[facility] Ceiwwqiwvf[address] [place], [place] [address]Dr. Tadeo Haja AMYLASEon 02-02-2022 Amylase [Catalytic activity/Vol] 37 U/L Normal 25-[address] [facility] Comment on above: Performed By: #### C MP, VIJI, LIPA ####[facility] Cosyzesgbh524[address] [place], [place] [address]Dr. Tadeo Smyth CBC AUTO DIFFon 02-02-2022 BASO # 0.0 103/ul Normal 0.0-0.[address] [facility] Comment on above: Performed By: #### C BC ####[facility] Wlkrozvuir[address] [place], [place] [address]Dr. Tadeo Smyth Basophils/100 WBC (Bld) 0.2 % Normal 0.2-2.[address] [facility] Comment on above: Performed By: #### C BC ####[facility] Idsvhfwqbc[address] [place], [place] [address]Dr. Tadeo Smyth EO # 0.0 103/ul Normal 0.0-0.[address] [facility] Comment on above: Performed By: #### C BC ####[facility] Tmmxpkainr[address] [place], [place] [address]Dr. Tadeo Smyth Eosinophils/100 WBC (Bld) 0.2 % Critically low 0.9-7.[address] [facility] Comment on above: Performed By: #### C BC ####[facility] [address]vwcqrdx[address] [place], [place] [address]Dr. Tadeo Smyth Erythrocyte distribution width (RBC) [Ratio] 13.4 % Normal 11.0-15.[address] [facility] Comment on above: Performed By: #### C BC ####[facility] Yeefusmfbv[address] [place] [address]Dr. Tadeo Smyth Hematocrit (Bld) [Volume fraction] 36.8 % Normal 36.0-48.0 [facility] Comment on above: Performed By: #### C BC ####[facility] Mbjbbxselk6156 [place] [address]Dr. Tadeo Haja Hemoglobin (Bld) [Mass/Vol] 11.6 g/dL Critically low 12.0-16.[address] [facility] Comment on above: Performed By: #### C BC ####[facility] Ililukijle[address] [place] [address]Dr. Tadeo Smyth IG # 0.08 10e3/ul Critically high 0.00-0.03 [facility] Comment on above: Performed By: #### C BC ####[facility] Wegctszwbg4685 [place] [address]Dr. Tadeo Smyth IG % 0.6 % Critically high 0.0-0.5 [facility] Comment on above: Performed By: #### C BC ####[facility] [address]qfgbgy[address] [place], [place] [address]Dr. Tadeo Smyth LYMPH # 0.9 103/ul Critically low 1.2-3.8 [facility] Comment on above: Performed By: #### C BC ####[facility] Oihulgdvgy4218 [place] [address]Dr. Tadeo Smyth Lymphocytes/100 WBC (Bld) 6.9 % Critically low 20.5-60.[address] [facility] Comment on above: Performed By: #### C BC ####[facility] Iqegkntktn1684 [place] [address]Dr. Tadeo Smyth MANUAL DIFF REQ NO Normal [facility] Comment on above: Performed By: #### C BC ####[facility] [address]mgpyvrzv[address] [place], [place] [address]Dr. Margotnicole Smyth MCH (RBC) [Entitic mass] 28.9 pg Normal 26.7-34.[address] [facility] Comment on above: Performed By: #### C BC ####[facility] Tuewzgaeom[address] [place], [place] [address]Dr. Tadeo Smyth MCHC (RBC) [Mass/Vol] 31.5 g/dL Normal 29.9-35.[address] [facility] Comment on above: Performed By: #### C BC ####[facility] Sw[address]wjmsrr77[address] [place] [phone]. Tadeo Smyth MCV (RBC) [Entitic vol] 91.8 fL Normal 81.0-99.[address] [facility] Comment on above: Performed By: #### C BC ####[facility] Cmamjchfup[address] [place] [id number]. Tadeo Smyth MONO # 0.9 103/ul Critically high 0.3-0.[address] [facility] Comment on above: Performed By: #### C BC ####[facility] Oalphdfnbo9035 [place] [address]Dr. Tadeo Smyth Monocytes/100 WBC (Bld) 6.9 % Normal 1.7-12.[address] [facility] Comment on above: Performed By: #### C BC ####[facility] Mlvgkqudtb0124 [place] [address]Dr. Tadeo Smyth NEUT # 11.6 103/ul Critically high 1.4-6.[address] [facility] Comment on above: Performed By: #### C BC ####[facility] Dtbpyyufci4345 [place] [address]Dr. Tadeo Smyth Neutrophils/100 WBC (Bld) 85.2 % Critically high 43.0-75.[address] [facility] Comment on above: Performed By: #### C BC ####[facility] Nfivvyxuar5370 [place] [phone]. Tadeo Smyth Platelet mean volume (Bld) [Entitic vol] 8.9 fL Critically low 9.5-13.[address] [facility] Comment on above: Performed By: #### C BC ####[facility] Nwibqqdsdv0948 [place] [phone]. Tadeo Haja PLT 331 103/ul Normal 150-[address] [facility] Comment on above: Performed By: #### C BC ####[facility] Preyznweos2821 [place] [phone]. Tadeo Smyth RBC 4.01 106/ul Critically low 4.20-5.[address] [facility] Comment on above: Performed By: #### C BC ####[facility] Smbriuwtpn[address] [place] [address]Dr. Tadeo Smyth WBC 13.7 103/ul Critically high 4.0-11.0 [facility] Comment on above: Performed By: #### C BC ####[facility] [address]ztjjqjtn[address] [place], [place] [address]Dr. Tadeo [facility] Covid-19 PCR (CVDTBH)on 01-05 SARS-CoV-2 (COVID-19) RNA CHEN+probe Ql (Unsp spec) Not detected Normal NOT DETECTED [facility] Comment on above: Result Comment: When [...] for this test is supported by the [place] [employer]'s declaration that [...] be used). Performed By: #### C VDTBH ####[facility] Tstccnylff8[address] [place] [address]Dr. Tadeo Smyth LIPASEon 02-02-2022 Lipase [Catalytic activity/Vol] 33.0 U/L Critically low 73.0-393.[address] [facility] Comment on above: Performed By: #### C MP, VIJI, LIPA ####[facility] Fkbjuszruf13[address] [place] [address]Dr. Tadeo Smyth MONOon 02-02-2022 Monocytes (Bld) [#/Vol] Negative Normal NEGATIVE [facility] Comment on above: Performed By: #### M JESSICA ####[facility] Yqwmfnaoxt3204 [place] [address]Dr. Tadeo Smyth PROF 14(COMP METB)on 022 Albumin [Mass/Vol] 3.1 g/dL Critically low 3.4-5.0 [facility] Comment on above: Performed By: #### C MP, VIJI, LIPA ####[facility] Tyeseexkqd1389 [place] [address]Dr. Tadeo Smyth Albumin/Globulin [Mass ratio] 0.9 {ratio} Normal [facility] Comment on above: Performed By: #### C MP, VIJI, LIPA ####[facility] Vjvhffhdpc4591 [place] [address]Dr. Tadeo Smyth ALP [Catalytic activity/Vol] 131 U/L Critically high 46-116 [facility] Comment on above: Performed By: #### C MP, VIJI, LIPA ####[facility] Lqravssckd0815 [place] [address]Dr. Tadeo Smyth ALT [Catalytic activity/Vol] 25 U/L Normal 14-59 [facility] Comment on above: Performed By: #### C MP, VIJI, LIPA ####[facility] Gpwvdwcntf9[address] [place] [address]Dr. Tadeo Smyth Anion gap [Moles/Vol] 10.0 mmol/L Normal [facility] Comment on above: Performed By: #### C MP, VIJI, LIPA ####[facility] [id number] [place] [address]Dr. Tadeo Smyth AST [Catalytic activity/Vol] 19 U/L Normal 15-37 [facility] Comment on above: Performed By: #### C MP, VIJI, LIPA ####[facility] [address] [place] [address]Dr. Tadeo Smyth Bilirubin [Mass/Vol] 0.6 mg/dL Normal 0.2-1.0 [facility] Comment on above: Performed By: #### C MP, VIJI, LIPA ####[facility] [id number] [place] [address]Dr. Tadeo Smyth Calcium [Mass/Vol] 8.2 mg/dL Critically low 8.5-10.[address] [facility] Comment on above: Performed By: #### C MP, VIJI, LIPA ####[facility] [address]fnj[address] [place] [address]Dr. Tadeo Smyth Chloride [Moles/Vol] 106 mmol/L Normal 98-[address] [facility] Comment on above: Performed By: #### C MP, VIJI, LIPA ####[facility] Luk[address] [place], [place] [address]Dr. Tadeo Smyth CO2 [Moles/Vol] 25.5 mmol/L Normal 21.0-32.0 [facility] Comment on above: Performed By: #### C MP, VIJI, LIPA ####[facility] Sw[address] [place], [place] [address]Dr. Tadeo Smyth Creatinine [Mass/Vol] 0.78 mg/dL Normal 0.55-1.02 [facility] Comment on above: Performed By: #### C MP, VIJI, LIPA ####[facility] [address] [place], [place] [address]Dr. Tadeo Smyth EGFR-AF BRUNEIAN >60 Normal >=60 [facility] Comment on above: Performed By: #### C MP, VIJI, LIPA ####[facility] [address] [place], [place] [address]Dr. Tadeo Smyth EGFR-NON AF BRUNEIAN >60 Normal >=60 [facility] Comment on above: Performed By: #### C MP, VIJI, LIPA ####[facility] [address] [place], [place] [address]Dr. Tadeo Smyth Globulin (S) [Mass/Vol] 3.6 g/dL Normal [facility] Comment on above: Performed By: #### C MP, VIJI, LIPA ####[facility] Bigzfcof[address] [place], [place] [address]Dr. Tadeo Smyth Glucose [Mass/Vol] 110 mg/dL Critically high 74-106 [facility] Comment on above: Performed By: #### C VIJI GARCIA, LIPA ####[facility] [address] [place] [address]Dr. Tadeo Smyth Potassium [Moles/Vol] 3.5 mmol/L Normal 3.5-5.[address] [facility] Comment on above: Performed By: #### C VIJI GARCIA, LIPA ####[facility] [address]we[address] [place] [address]Dr. Tadeo Smyth Protein [Mass/Vol] 6.7 g/dL Normal 6.4-8.[address] [facility] Comment on above: Performed By: #### C VIJI GARCIA, LIPA ####[facility] [address] [place] [address]Dr. Tadeo Smyth Sodium [Moles/Vol] 138 mmol/L Normal 136-[address] [facility] Comment on above: Performed By: #### C VIJI GARCIA, LIPA ####[facility] [address] [place] [address]Dr. Tadeo Smyth Urea nitrogen [Mass/Vol] 11.0 mg/dL Normal 7.0-18.[address] [facility] Comment on above: Performed By: #### C JOSE VIJI, LIPA ####[facility] [address]poqt[address] [place] [address]Dr. Tadeo Smyth Urea nitrogen/Creatinine [Mass ratio] 14.1 mg/mg Normal [facility] Comment on above: Performed By: #### C JOSE VIJI, LIPA ####[facility] [address]tnimp[address] [place] [address]Dr. Tadeo Smyth STREPT SCREENon 02-02-2022 STREP SCREEN A Negative Normal NEGATIVE [facility] Comment on above: Performed By: #### G RASTCX, SSCRN ####[facility] [address] [place] [address]Dr. Tadeo Smyth BASIC METABOLIC PANELon 08-05 Calcium [Mass/Vol] 8.4 mg/dL Low 8.6-10.3 [facility] Comment on above: Order Comment: No: D o not add to previous draw Performed By: #### 3 282, 71572 #### [facility] [address] [place] [address], [place] Chloride [Moles/Vol] 108 mmol/L High 98-107 The [facility] Comment on above: Order Comment: No: D o not add to previous draw Performed By: #### 3 6900, 58974 #### [facility] [address] [place] [address], [place] CO2 [Moles/Vol] 26 mmol/L Normal 21-31 [facility] Comment on above: Order Comment: No: D o not add to previous draw Performed By: #### 3 655, 31569 #### [facility] [address] [place] [address], [place] Creatinine [Mass/Vol] 0.79 mg/dL Normal 0.60-1.20 The [facility] Comment on above: Order Comment: No: D o not add to previous draw Performed By: #### 3 919, 41362 #### [facility] [address] [place] [address], [place] GFR/1.73 sq M predicted among blacks MDRD (S/P/Bld) [Vol rate/Area] mL/min/{1.73_m2} Normal >60 The [facility] Comment on above: Order Comment: No: D o not add to previous draw Performed By: #### 3 070, 13420 #### [facility] [address] [place] [address], [place] GFR/1.73 sq M predicted among non-blacks MDRD (S/P/Bld) [Vol rate/Area] mL/min/{1.73_m2} Normal >60 The [facility] Comment on above: Order Comment: No: D o not add to previous draw Performed By: #### 3 029, 24878 #### [facility] [address] [place] [address], [place] Glucose [Mass/Vol] 98 mg/dL Normal 70-100 The [facility] Comment on above: Order Comment: No: D o not add to previous draw Performed By: #### 3 525, 99375 #### [facility] [address] [place] [address], [place] Potassium [Moles/Vol] 3.5 mmol/L Normal 3.5-5.1 The [facility] Comment on above: Order Comment: No: D o not add to previous draw Performed By: #### 3 840, 56407 #### [facility] [address] [place] [address], [place] Sodium [Moles/Vol] 139 mmol/L Normal 136-145 The [facility] Comment on above: Order Comment: No: D o not add to previous draw Performed By: #### 3 598, 70299 #### [facility] [address] [place] [address], [place] Urea nitrogen [Mass/Vol] 11 mg/dL Normal 7-25 The [facility] Comment on above: Order Comment: No: D o not add to previous draw Performed By: #### 3 851, 19897 #### [facility] [address] [place] [address], [place] BLOOD STOOL GUAIACon 019 BLD STOOL GUAIAC Negative Normal NEGATIVE The [facility] Comment on above: Order Comment: No: D o not add to previous draw Performed By: #### 3 514, 43207 #### [facility] [address] [place] [address], [place] MAGNESIUM BLOODon 08-16-2019 Magnesium [Mass/Vol] 2.0 mg/dL Normal 1.9-2.7 The [facility] Comment on above: Order Comment: No: D o not add to previous draw Performed By: #### 3 059, 76528 #### [facility] [address] *URINE CULTUREon 08-15-2019 Bacteria identified Cx Nom (U) Clinical Report: (D) Specimen/Source: URINE/MIDSTREAM Collected: 08/15/2019 20:40 Status: Final Last Updated: 08/17/2019 08:05 ISO (Final) Escherichia coli >100,000 Cfu/Ml ISOLATE: Escherichia coli RHONDA (mcg/ml) AMP./SULBAC (AMS) 16/8 Intermediate AMPICILLIN (AM) >16 Resistant AZTREONAM (AZM) <=1 Susceptible CEFAZOLIN (CZ) 2 Susceptible CEFTRIAXONE ([facility]) <=0.5 Susceptible CIPROFLOXACIN (CIP) >2 Resistant ESBL (-/+) (ESBL) Negative GENTAMICIN (GM) <=1 Susceptible NITROFURANTOIN (FT) <=16 Susceptible PIP/TAZO (TZP) 4/4 Susceptible TOBRAMYCIN (TOB) 1 Susceptible TRIMETH/SULFA (SXT) >2/38 Resistant Normal The [facility] Comment on above: Performed By: #### 3 6901, 80453 #### [facility] [address] BASIC METABOLIC PANELon 08-05 Calcium [Mass/Vol] 8.8 mg/dL Normal 8.6-10.3 The [facility] Comment on above: Order Comment: No: D o not add to previous draw Performed By: #### 0 0071, 37396, 01725 #### [facility] [address] Chloride [Moles/Vol] 107 mmol/L Normal 98-107 The [facility] Comment on above: Order Comment: No: D o not add to previous draw Performed By: #### 0 0071, 80902, 21256 #### [facility] [address] [place] [address], [facility] CO2 [Moles/Vol] 27 mmol/L Normal 21-31 The [facility] Comment on above: Order Comment: No: D o not add to previous draw Performed By: #### 0 0071, 49619, 04327 #### [facility] [address] [place] [address], [place] Creatinine [Mass/Vol] 0.99 mg/dL Normal 0.60-1.20 The [facility] Comment on above: Order Comment: No: D o not add to previous draw Performed By: #### 0 0071, 38152, 00978 #### [facility] [address] [place] [address], [place] GFR/1.73 sq M predicted among blacks MDRD (S/P/Bld) [Vol rate/Area] mL/min/{1.73_m2} Normal >60 The [facility] Comment on above: Order Comment: No: D o not add to previous draw Performed By: #### 0 0071, 11955, 47022 #### [facility] [address] [place] [address], [place] GFR/1.73 sq M predicted among non-blacks MDRD (S/P/Bld) [Vol rate/Area] 59 ml/min/1.73sq m Abnormal >60 The [facility] Comment on above: Order Comment: No: D o not add to previous draw Performed By: #### 0 0071, 09321, 31074 #### [facility] [address] [place] [address], [place] Glucose [Mass/Vol] 100 mg/dL Normal 70-100 The [facility] Comment on above: Order Comment: No: D o not add to previous draw Performed By: #### 0 0071, 69513, 37186 #### [facility] [address] [place] [address], [place] Potassium [Moles/Vol] 3.6 mmol/L Normal 3.5-5.1 The [facility] Comment on above: Order Comment: No: D o not add to previous draw Performed By: #### 0 0071, 57106, 45662 #### [facility] [address] [place] [address], [facility] Sodium [Moles/Vol] 140 mmol/L Normal 136-145 The [facility] Comment on above: Order Comment: No: D o not add to previous draw Performed By: #### 0 0071, 31866, 41762 #### [facility] [address] [place] [address], [facility] Urea nitrogen [Mass/Vol] 9 mg/dL Normal 7-25 The [facility] Comment on above: Order Comment: No: D o not add to previous draw Performed By: #### 0 0071, 96443, 97922 #### [facility] [address] [place] [address], [facility] LACTATE BLOODon 08-15-2019 Lactate [Moles/Vol] 0.8 mmol/L Normal 0.5-2.2 The [facility] Comment on above: Order Comment: Yes: Add to Previous draw if able Performed By: #### 1 0054 #### [facility] [address] LMWH HEPARIN ASSAYon 019 LOW MOLECULAR WEIGHT HEPARIN 0.32 IU/mL Low 0.60-1.20 The [facility] Comment on above: Order Comment: (draw 4 hours after enoxaparin dose) needed if patient > 150kg or BMI >50 not usually necessary but consider in renal dysfunction, hepaticdysfunction, , children, very underweight, or overweightNo: Do not add to previous drawPER RN TERE, PATIENT RECEIVES DOSE AT 9 AM. TRY AGAIN AT 1300.PER RN VANESSA ROCHANOX WAS GIVEN TO PATIENT AT 10AM [...] UFH and LMWH. Performed By: #### 3 2551, 68906 #### [facility] [address] [place] [address], [facility] MAGNESIUM BLOODon 08-15-2019 Magnesium [Mass/Vol] 1.7 mg/dL Low 1.9-2.7 The [facility] Comment on above: Order Comment: No: D o not add to previous draw Performed By: #### 0 0071, 43056, 26142 #### [facility] [address] [place] [address], [facility] PHOSPHORUS BLOODon 9 Phosphate [Mass/Vol] 4.1 mg/dL Normal 2.5-5.0 The [facility] Comment on above: Order Comment: No: D o not add to previous draw Performed By: #### 0 0071, 58674, 46442 #### [facility] [address] [place] [address], [facility] UGI WITH SMALL BOWELon 08-15 UGI WITH SMALL BOWEL [facility] Department of Radiology [address] [place] [id number] Patient Name: CONSTANTINO CARDOSO : 1970 Sex: F Age: Race: White Pt. Location: [id number] Patient Status: O Ordered Date: 08/15/2019 10:45:00 [...] ischemia. Electronically signed by:Orestes Condon. Transcribed by: [email or web address], User Resident: Electronically Signed by: ORESTES CONDON @ 08/15/2019 04:13 PM Normal The [facility] Comment on above: Order Comment: R/O O bstruction URINALYSIS REFLEXon 08-15-20 Appearance (U) SL CLOUDY Abnormal CLEAR The [facility] Comment on above: Order Comment: No: D o not add to previous drawCriteria for reflexing a culture was met. Urine Culture and sensitivitywill be performed. Performed By: #### 3 1303, 79614 #### [facility] [address] [place] [address], [facility] Bilirubin [Mass/Vol] Negative Normal NEGATIVE The [facility] Comment on above: Order Comment: No: D o not add to previous drawCriteria for reflexing a culture was met. Urine Culture and sensitivitywill be performed. Performed By: #### 3 1407, 49709 #### [facility] [address] [place] [address], [place] BLOOD SMALL Abnormal NEGATIVE The [facility] Comment on above: Order Comment: No: D o not add to previous drawCriteria for reflexing a culture was met. Urine Culture and sensitivitywill be performed. Performed By: #### 3 690, 20255 #### [facility] [address] [place] [address], [place] Color (U) YELLOW Normal YELLOW The [facility] Comment on above: Order Comment: No: D o not add to previous drawCriteria for reflexing a culture was met. Urine Culture and sensitivitywill be performed. Performed By: #### 3 690, 01173 #### [facility] [address] [place] [address], [place] EPIS OCC Normal FEW,OCC,NON E SEEN The [facility] Comment on above: Order Comment: No: D o not add to previous drawCriteria for reflexing a culture was met. Urine Culture and sensitivitywill be performed. Performed By: #### 3 6900, 44990 #### [facility] [address] [place] [address], [place] Glucose [Mass/Vol] Negative Normal NEGATIVE The [facility] Comment on above: Order Comment: No: D o not add to previous drawCriteria for reflexing a culture was met. Urine Culture and sensitivitywill be performed. Performed By: #### 3 203, 40278 #### [facility] [address] [place] [address], [place] HYALINE CASTS 6-10 Abnormal NONE SEEN The [facility] Comment on above: Order Comment: No: D o not add to previous drawCriteria for reflexing a culture was met. Urine Culture and sensitivitywill be performed. Performed By: #### 3 177, 56070 #### [facility] [address] [place] [address], [place] KETONE Negative Normal NEGATIVE The [facility] Comment on above: Order Comment: No: D o not add to previous drawCriteria for reflexing a culture was met. Urine Culture and sensitivitywill be performed. Performed By: #### 3 3551, 63147 #### [facility] [address] [place] [address], [place] LEUK JONN MODERATE Abnormal NEGATIVE The [facility] Comment on above: Order Comment: No: D o not add to previous drawCriteria for reflexing a culture was met. Urine Culture and sensitivitywill be performed. Performed By: #### 3 8031, 81874 #### [facility] [address] [place] [address], [place] MUCUS THREADS FEW Abnormal NONE SEEN The [facility] Comment on above: Order Comment: No: D o not add to previous drawCriteria for reflexing a culture was met. Urine Culture and sensitivitywill be performed. Performed By: #### 3 084, 47053 #### [facility] [address] [place] [address], [place] Nitrite Ql (U) Negative Normal NEGATIVE The [facility] Comment on above: Order Comment: No: D o not add to previous drawCriteria for reflexing a culture was met. Urine Culture and sensitivitywill be performed. Performed By: #### 3 321, 51888 #### [facility] [address] [place] [address], [facility] pH (Bld) 5.0 Normal 5.0-8.0 The [facility] Comment on above: Order Comment: No: D o not add to previous drawCriteria for reflexing a culture was met. Urine Culture and sensitivitywill be performed. Performed By: #### 3 4021, 42964 #### [facility] [address] [place] [address], [place] Protein (U) [Mass/Vol] Negative Normal NEGATIVE The [facility] Comment on above: Order Comment: No: D o not add to previous drawCriteria for reflexing a culture was met. Urine Culture and sensitivitywill be performed. Performed By: #### 3 6901, 34604 #### [facility] [address] RBC (U) [#/Vol] 6-10 Abnormal NONE SEEN The [facility] Comment on above: Order Comment: No: D o not add to previous drawCriteria for reflexing a culture was met. Urine Culture and sensitivitywill be performed. Performed By: #### 3 6901, 04509 #### [facility] [address] [facility] [address] SPEC GRAV 1.025 High 1.015-1.020 The [facility] Comment on above: Order Comment: No: D o not add to previous drawCriteria for reflexing a culture was met. Urine Culture and sensitivitywill be performed. Performed By: #### 3 6901, 51305 #### [facility] [address] [facility] [address] WBC UA 51-100 Abnormal NONE SEEN The [facility] Comment on above: Order Comment: No: D o not add to previous drawCriteria for reflexing a culture was met. Urine Culture and sensitivitywill be performed. Performed By: #### 3 6901, 27181 #### [facility] [address] [facility]. [address] CBC COMPLETE BLOOD COUNTon 10-15-2018 Erythrocyte distribution width (RBC) [Ratio] 12.7 % Normal 11.5-15.0 The [facility] Comment on above: Order Comment: No: D o not add to previous draw Performed By: #### 5 0608 #### [facility] [address] [facility]. [address] Hematocrit (Bld) [Volume fraction] 31.2 % Low 36.0-45.0 The [facility] Comment on above: Order Comment: No: D o not add to previous draw Performed By: #### 5 0608 #### [facility] [address] [facility] [address] Hemoglobin (Bld) [Mass/Vol] 9.8 g/dL Low 12.0-15.0 [facility] Comment on above: Order Comment: No: D o not add to previous draw Performed By: #### 5 0608 #### [facility] [address] [place] [id number], [facility] MCH (RBC) [Entitic mass] 29.1 pg Normal 27.0-33.0 The [facility] Comment on above: Order Comment: No: D o not add to previous draw Performed By: #### 5 0608 #### [facility] [address] [place] [address], [facility] MCHC (RBC) [Mass/Vol] 31.4 g/dL Low 32.0-35.0 [facility] Comment on above: Order Comment: No: D o not add to previous draw Performed By: #### 5 0608 #### [facility] [address] [facility] [place] [address], [facility] MCV (RBC) [Entitic vol] 92.6 fL Normal 82.0-98.0 [facility] Comment on above: Order Comment: No: D o not add to previous draw Performed By: #### 5 0608 #### [facility] [address] [facility] [place] [address], [facility] Nucleated RBC/100 WBC (Bld) [Ratio] 0 % Normal 0-0 The [facility] Comment on above: Order Comment: No: D o not add to previous draw Performed By: #### 5 0608 #### [facility] [address] [place] [address], [facility] PLAT CNT 340 10*3/uL Normal 150-400 [facility] Comment on above: Order Comment: No: D o not add to previous draw Performed By: #### 5 0608 #### [facility] [address] [facility] [place] [address], [facility] RBC (Bld) [#/Vol] 3.37 10*6/uL Low 3.80-5.00 [facility] Comment on above: Order Comment: No: D o not add to previous draw Performed By: #### 5 0608 #### [facility] [address] WBC (Bld) [#/Vol] 6.04 10*3/uL Normal 4.00-10.60 [facility] Comment on above: Order Comment: No: D o not add to previous draw Performed By: #### 5 0608 #### [facility] [address] [facility] [address] PROTHROMBIN TIMEon 12 9 INR Coag (PPP) [Relative time] 1.09 {INR} Normal 0.91-1.16 [facility] Comment on above: Order Comment: No: D [...] 1995;108:[id number]-[id number]. Performed By: #### 5 6101 #### [facility] [address] PT Coag (PPP) [Time] 14.1 s Normal 12.3-14.8 [facility] Comment on above: Order Comment: No: D o not add to previous draw Result Comment: ALL RESULTS MUST BE INTERPRETED WITH RESPECT TO BLOOD DRAWING ARTIFACT OR DILUTION ERROR OF ANTICOAGULANT AT THE TIME OF SAMPLING. Performed By: #### 5 6101 #### [address] LIVER 08-14-2019 [facility] Department of Radiology [address] [place] [id number] Patient Name: CONSTANTINO CARDOSO : 1970 Sex: F Age: Race: White Pt. Location: [id number] Patient Status: O Ordered Date: 08/13/2019 8:30:00 [...] cholecystectomy. Electronically signed by:Orestes Condon. Transcribed by: [email or web address], User Resident: Electronically Signed by: ORESTES CONDON @ 08/14/2019 02:09 PM Normal [facility] Comment on above: Order Comment: R/O S tones BASIC METABOLIC PANELon 12-0 Calcium [Mass/Vol] 9.4 mg/dL Normal 8.6-10.3 [facility] Comment on above: Order Comment: No: D o not add to previous draw Performed By: #### 3 734, 14318 #### [facility] [address] [place] [address], [place] Chloride [Moles/Vol] 105 mmol/L Normal 98-107 [facility] Comment on above: Order Comment: No: D o not add to previous draw Performed By: #### 3 [id number], [id number] #### [facility] [address] [place] [address], [place] CO2 [Moles/Vol] 26 mmol/L Normal 21-31 [facility] Comment on above: Order Comment: No: D o not add to previous draw Performed By: #### 3 [id number], [id number] #### [facility] [address] [place] [address], [place] Creatinine [Mass/Vol] 1.03 mg/dL Normal 0.60-1.20 The [facility] Comment on above: Order Comment: No: D o not add to previous draw Performed By: #### 3 [id number], [id number] #### [facility] [address] [place] [address], [place] GFR/1.73 sq M predicted among blacks MDRD (S/P/Bld) [Vol rate/Area] mL/min/{1.73_m2} Normal >60 The [facility] Comment on above: Order Comment: No: D o not add to previous draw Performed By: #### 3 [id number], [id number] #### [facility] [address] [place] [address], [facility] GFR/1.73 sq M predicted among non-blacks MDRD (S/P/Bld) [Vol rate/Area] 57 ml/min/1.73sq m Abnormal >60 The [facility] Comment on above: Order Comment: No: D o not add to previous draw Performed By: #### 3 [id number], [id number] #### [facility] [address] [place] [address], [place] Glucose [Mass/Vol] 96 mg/dL Normal 70-100 [facility] Comment on above: Order Comment: No: D o not add to previous draw Performed By: #### 3 [id number], [id number] #### [facility] [address] [place] [address], [place] Potassium [Moles/Vol] 4.1 mmol/L Normal 3.5-5.1 [facility] Comment on above: Order Comment: No: D o not add to previous draw Performed By: #### 3 [id number], [id number] #### [facility] [address] [place] [address], [place] Sodium [Moles/Vol] 138 mmol/L Normal 136-145 [facility] Comment on above: Order Comment: No: D o not add to previous draw Performed By: #### 3 [id number], [id number] #### [facility] [address] [place] [address], [place] Urea nitrogen [Mass/Vol] 16 mg/dL Normal 7-25 The [facility] Comment on above: Order Comment: No: D o not add to previous draw Performed By: #### 3 130, [id number] #### [facility] [address] [place] [address], [place] CBC W/DIFFon 08-13-2019 ABS BASOPHILS 0.0 10*3/uL Normal 0.0-0.2 The [facility] Comment on above: Order Comment: No: D o not add to previous draw Performed By: #### 5 [id number] #### [facility] [address] [place] [address], [facility] ABS IMM GRANS 0.0 10*3/uL Normal 0.0-0.2 The [facility] Comment on above: Order Comment: No: D o not add to previous draw Performed By: #### 5 [id number] #### [facility] [address] [place] [address], [facility] ABS NEUTROPHILS 4.0 10*3/uL Normal 1.6-7.6 The [facility] Comment on above: Order Comment: No: D o not add to previous draw Performed By: #### 5 [id number] #### [facility] [address] [place] [address], [facility] Basophils/100 WBC (Bld) 0.5 % Normal 0.0-1.0 The [facility] Comment on above: Order Comment: No: D o not add to previous draw Performed By: #### 5 [id number] #### [facility] [address] [facility] [place] [address], [facility] Eosinophils (Bld) [#/Vol] 0.2 10*3/uL Normal 0.0-0.5 The [facility] Comment on above: Order Comment: No: D o not add to previous draw Performed By: #### 5 [id number] #### [facility] [address] [place] [address], [facility] Eosinophils/100 WBC (Bld) 3.3 % Normal 0.0-6.0 The [facility] Comment on above: Order Comment: No: D o not add to previous draw Performed By: #### 5 [id number] #### [facility] [address] [place] [address], [facility] Erythrocyte distribution width (RBC) [Ratio] 12.7 % Normal 11.5-15.0 The [facility] Comment on above: Order Comment: No: D o not add to previous draw Performed By: #### 5 [id number] #### [facility] [address] [address], [facility] Hematocrit (Bld) [Volume fraction] 33.4 % Low 36.0-45.0 The [facility] Comment on above: Order Comment: No: D o not add to previous draw Performed By: #### 5 [id number] #### [facility] [address] [place] [address], [facility] Hemoglobin (Bld) [Mass/Vol] 10.5 g/dL Low 12.0-15.0 The [facility] Comment on above: Order Comment: No: D o not add to previous draw Performed By: #### 5 [id number] #### [facility] [address] [place] [place] [address], [facility] IMMATURE GRANS 0.2 % Normal 0.0-1.0 The [facility] Comment on above: Order Comment: No: D o not add to previous draw Performed By: #### 5 [id number] #### [facility] [address] [place] [address], [facility] Lymphocytes (Bld) [#/Vol] 1.8 10*3/uL Normal 1.2-4.0 The [facility] Comment on above: Order Comment: No: D o not add to previous draw Performed By: #### 5 [id number] #### [facility] [address] [facility] [place] [address], [facility] Lymphocytes/100 WBC (Bld) 28.2 % Normal 20.0-45.0 The [facility] Comment on above: Order Comment: No: D o not add to previous draw Performed By: #### 5 [id number] #### [facility] [address] [place] [address], [facility] MCH (RBC) [Entitic mass] 28.9 pg Normal 27.0-33.0 The [facility] Comment on above: Order Comment: No: D o not add to previous draw Performed By: #### 5 [id number] #### [facility] [address] [place] [address], [facility] MCHC (RBC) [Mass/Vol] 31.4 g/dL Low 32.0-35.0 The [facility] Comment on above: Order Comment: No: D o not add to previous draw Performed By: #### 5 [id number] #### [facility] [address] [place] [id number], [facility] MCV (RBC) [Entitic vol] 92.0 fL Normal 82.0-98.0 The [facility] Comment on above: Order Comment: No: D o not add to previous draw Performed By: #### 5 [id number] #### [facility] [address] [facility] [place] [id number], [facility] Monocytes (Bld) [#/Vol] 0.4 10*3/uL Normal 0.1-1.0 The [facility] Comment on above: Order Comment: No: D o not add to previous draw Performed By: #### 5 [id number] #### [facility] [address] [facility] [place] [address], [facility] MONOS 6.2 % Normal 5.0-12.0 The [facility] Comment on above: Order Comment: No: D o not add to previous draw Performed By: #### 5 [id number] #### [facility] [address] [facility] [place] [address], [facility] Neutrophils/100 WBC (Bld) 61.6 % Normal 40.0-72.0 The [facility] Comment on above: Order Comment: No: D o not add to previous draw Performed By: #### 5 [id number] #### [facility] [address] [place] [address], [facility] Nucleated RBC/100 WBC (Bld) [Ratio] 0 % Normal 0-0 The [facility] Comment on above: Order Comment: No: D o not add to previous draw Performed By: #### 5 [id number] #### [facility] [address] [place] [address], [facility] PLAT CNT 382 10*3/uL Normal 150-400 The [facility] Comment on above: Order Comment: No: D o not add to previous draw Performed By: #### 5 [id number] #### [facility] [address] [place] [address], [facility] RBC (Bld) [#/Vol] 3.63 10*6/uL Low 3.80-5.00 The [facility] Comment on above: Order Comment: No: D o not add to previous draw Performed By: #### 5 [id number] #### [facility] [address] [place] [address], [facility] WBC (Bld) [#/Vol] 6.45 10*3/uL Normal 4.00-10.60 [facility] Comment on above: Order Comment: No: D o not add to previous draw Performed By: #### 5 [id number] #### [facility] [address] [place] [address], [facility] LIPASE BLOODon 08-13-2019 Lipase [Catalytic activity/Vol] 13 Units/L Normal 11-82 [facility] Comment on above: Performed By: #### 3 [id number], [id number] #### [facility] [address] Vital Signs Date Time Vital Sign Value Performing Clinician Facility 07-22-2023 13:19-0500 Body height 170.[address] Work Phone: [facility] 07-22-2023 13:19-0500 Body weight 83.[address] Work Phone: [facility] 07-14-2023 11:40-0500 Diastolic blood pressure 95 mm[Hg] Marques Bradley MD Work Phone: [facility] 07-14-2023 11:40-0500 Heart rate 56 /min Marques Bradley MD Work Phone: [facility] 07-14-2023 11:40-0500 Respiratory rate 16 /min Marques Bradley MD Work Phone: [facility] 07-14-2023 11:40-0500 SaO2% (BldA) [Mass fraction] 97 % Marques Bradley MD Work Phone: [facility] 07-14-2023 11:40-0500 Systolic blood pressure 158 mm[Hg] Marques Bradley MD Work Phone: [facility] 07-14-2023 11:10-0500 Body temperature 97.2 [degF] Marques Bradley MD Work Phone: [facility] 07-14-2023 08:34-0500 Body height 170.2 cm Marques Bradley MD Work Phone: [facility] 07-14-2023 08:34-0500 Body weight 88 kg Marques Bradley MD Work Phone: [facility] 04-21-2023 09:30-0400 Body height 170.18 cm Renny Gan Other [facility] Other 04-21-2023 09:30-0400 Body mass index (BMI) [Ratio] 31.21 kg/m2 Renny Gan Other [facility] Other 04-21-2023 09:30-0400 Body weight 90.4 kg Renny Gan Other [facility] Other 04-21-2023 09:30-0400 Diastolic blood pressure 78 mm[Hg] Renny Gan Other [facility] Other 04-21-2023 09:30-0400 Systolic blood pressure 130 mm[Hg] Renny Gan Other [facility] Other 03-23-2023 07:33-0400 Diastolic blood pressure 80 mm[Hg] [employer] Judi Mikael Work Phone: [facility] 03-23-2023 07:33-0400 Heart rate 81 /min [employer] Judi Mikael Work Phone: [facility] 03-23-2023 07:33-0400 Respiratory rate 14 /min [employer] Judi Mikael Work Phone: [facility] 03-23-2023 07:33-0400 SaO2% (BldA) [Mass fraction] 95 % [employer] Judijose manuel Ugaldemer Work Phone: [facility] 03-23-2023 07:33-0400 Systolic blood pressure 171 mm[Hg] [employer] Judijose manuel Ugaldemer Work Phone: [facility] 03-23-2023 06:20-0400 Body height 170.18 cm [employer] Judijose manuel Ugaledmer Work Phone: [facility] 03-23-2023 06:20-0400 Body temperature 97.4 [degF] [employer] Judijose manuel Ugaldemer Work Phone: [facility] 03-23-2023 06:20-0400 Body weight 90 kg [employer] Judi Ugaldemer Work Phone: [facility] 02-19-2023 00:53-0400 Body temperature 96.98 [degF] Kaylinn Dokken [facility] 02-19-2023 00:53-0400 Diastolic blood pressure 99 mm[Hg] Kaylinn Dokken [facility] 02-19-2023 00:53-0400 Heart rate 75 /min Kaylinn Dokken [facility] 02-19-2023 00:53-0400 Respiratory rate 16 /min Kaylinn Dokken [facility] 02-19-2023 00:53-0400 SaO2% (BldA) [Mass fraction] 98 % Zabrina Santanaen [facility] 02-19-2023 00:53-0400 Systolic blood pressure 153 mm[Hg] Isabellan Dokken [facility] 02-15-2023 10:33-0400 Diastolic blood pressure 89 mm[Hg] [employer] Judi Mikael Work Phone: [facility] 02-15-2023 10:33-0400 SaO2% (BldA) [Mass fraction] 100 % [employer] Judi Mikael Work Phone: [facility] 02-15-2023 10:33-0400 Systolic blood pressure 149 mm[Hg] [employer] Judi Mikael Work Phone: [facility] 02-15-2023 10:00-0400 Heart rate 83 /min [employer] Judi Mikael Work Phone: [facility] 02-15-2023 10:00-0400 Respiratory rate 16 /min [employer] Judi Mikael Work Phone: [facility] 02-15-2023 08:06-0400 Body height 170.18 cm [employer] Judi Mikael Work Phone: [facility] 02-15-2023 08:06-0400 Body temperature 97.6 [degF] [employer] Judi Mikael Work Phone: [facility] 02-15-2023 08:06-0400 Body weight 89.2 kg [employer] Judi Mikael Work Phone: [facility] 10-26-2022 08:03-0500 Diastolic blood pressure 87 mm[Hg] [employer] Judi Mikael Work Phone: [facility] 10-26-2022 08:03-0500 Heart rate 70 /min [employer] Judi Mikael Work Phone: [facility] 10-26-2022 08:03-0500 Respiratory rate 18 /min [employer] Judi Youssef Work Phone: [facility] 10-26-2022 08:03-0500 SaO2% (BldA) [Mass fraction] 98 % [employer] Judi Youssef Work Phone: [facility] 10-26-2022 08:03-0500 Systolic blood pressure 161 mm[Hg] [employer] Judi Ugaldemer Work Phone: [facility] 10-26-2022 06:17-0500 Body height 170.18 cm [employer] Judi Youssef Work Phone: [facility] 10-26-2022 06:17-0500 Body temperature 97.2 [degF] [employer] Judi Youssef Work Phone: [facility] 10-26-2022 06:17-0500 Body weight 88.9 kg [employer] Judi Youssef Work Phone: [facility] 07-22-2022 14:34-0500 Diastolic blood pressure 83 mm[Hg] Ospina SALAM [facility] 07-22-2022 14:34-0500 Mean blood pressure 101 mm[Hg] Ospina SALAM [facility] 07-22-2022 14:34-0500 Systolic blood pressure 136 mm[Hg] Ospina SALAM [facility] 07-22-2022 14:30-0500 Blood Pressure Location Ospina SALAM [facility] 07-22-2022 14:30-0500 Diastolic blood pressure 89 mm[Hg] Ospina SALAM [facility] 07-22-2022 14:30-0500 Heart rate 62 /min Ospina SALAM [facility] 07-22-2022 14:30-0500 Respiratory rate 16 /min Ospina SALAM [facility] 07-22-2022 14:30-0500 SaO2% (BldA) [Mass fraction] 98 % Ospina SALAM [facility] 07-22-2022 14:30-0500 Systolic blood pressure 141 mm[Hg] Ospina SALAM [facility] 04-14-2022 14:50-0400 Blood Pressure Location Moniquejuan luis ReddyJimmy [facility] 04-14-2022 14:50-0400 Body temperature 97.16 [degF] Monique Jimmy [facility] 04-14-2022 14:50-0400 Diastolic blood pressure 86 mm[Hg] Monique Jimmy [facility] 04-14-2022 14:50-0400 Heart rate 72 /min Monique Jimmy [facility] 04-14-2022 14:50-0400 SaO2% (BldA) [Mass fraction] 97 % Monique Jimmy [facility] 04-14-2022 14:50-0400 Systolic blood pressure 131 mm[Hg] Monique Jimmy [facility] 01-28-2022 13:36-0400 Blood Pressure Location Monique Jimmy [facility] 01-28-2022 13:36-0400 Body temperature 97.52 [degF] Monique Marquez [facility] 01-28-2022 13:36-0400 Diastolic blood pressure 85 mm[Hg] Monique Reddymetz [facility] 01-28-2022 13:36-0400 Heart rate 73 /min Monique Reddymetz [facility] 01-28-2022 13:36-0400 SaO2% (BldA) [Mass fraction] 96 % Monique Marquez [facility] 01-28-2022 13:36-0400 Systolic blood pressure 122 mm[Hg] Monique Castañedaz [facility] 01-11-2022 10:15-0400 Blood Pressure Location Ospina SALAM [facility] 01-11-2022 10:15-0400 Diastolic blood pressure 106 mm[Hg] Ospina SALAM [facility] 01-11-2022 10:15-0400 Heart rate 70 /min Ospina SALAM [facility] 01-11-2022 10:15-0400 Respiratory rate 28 /min Ospina SALAM [facility] 01-11-2022 10:15-0400 SaO2% (BldA) [Mass fraction] 99 % Ospina SALAM [facility] 01-11-2022 10:15-0400 Systolic blood pressure 137 mm[Hg] Ospina SALAM [facility] 01-11-2022 10:05-0400 Blood Pressure Location Ospina SALAM [facility] 01-11-2022 10:05-0400 Diastolic blood pressure 74 mm[Hg] Ospina SALAM [facility] 01-11-2022 10:05-0400 Heart rate 67 /min Ospina SALAM [facility] 01-11-2022 10:05-0400 Respiratory rate 14 /min Ospina SALAM [facility] 01-11-2022 10:05-0400 SaO2% (BldA) [Mass fraction] 97 % Ospina SALAM [facility] 01-11-2022 10:05-0400 Systolic blood pressure 128 mm[Hg] Ospina SALAM [facility] 01-11-2022 10:00-0400 Blood Pressure Location Ospina SALAM [facility] 01-11-2022 10:00-0400 Diastolic blood pressure 79 mm[Hg] Ospina SALAM [facility] 01-11-2022 10:00-0400 Heart rate 66 /min Ospina SALAM [facility] 01-11-2022 10:00-0400 Respiratory rate 16 /min Ospina SALAM [facility] 01-11-2022 10:00-0400 SaO2% (BldA) [Mass fraction] 98 % Ospina SALAM [facility] 01-11-2022 10:00-0400 Systolic blood pressure 134 mm[Hg] Ospina SALAM [facility] 01-11-2022 09:50-0400 Body temperature 97.52 [degF] Ospina SALAM [facility] 01-11-2022 09:45-0400 Respiratory rate 15 /min Ospina SALAM [facility] 01-11-2022 09:18-0400 Body temperature 97.34 [degF] Ospina SALAM [facility] 01-11-2022 09:18-0400 Respiratory rate 20 /min [facility] [employer] [facility] Encounters Encounter Date Encounter Type Care Provider Facility Start: 08-25-2023 End: 08-25-2023 ambulatory JOEL PANCHAL [facility] Facility:[facility] Start: 07-29-2023 Orders Only Evelyn Black RN [facility] Surgery Comment on above: Gastroparesis (Prima ry Dx) Start: 07-22-2023 End: 07-22-2023 ambulatory MARQUES BRADLEY Facility:[facility] Start: 07-22-2023 Telephone encounter Evelyn Black RN General Surgery Start: 07-22-2023 End: 07-22-2023 Nutrition therapy Melissa Montalvo RD Work Phone: General Surgery Comment on above: Gastroparesis (Prima ry Dx); Malnutrition of moderate degree (HCC); Gastro-esophageal reflux disease without esophagitis; Overweight (BMI 25.0-29.9); Dietary counseling and surveillance Start: 07-22-2023 End: 07-22-2023 Telemedicine consultation with patient Melissa Montalvo RD Work Phone: [facility] Start: 07-14-2023 End: 07-14-2023 ambulatory MARQUES BRADLEY Facility:[facility] Start: 07-14-2023 End: 07-14-2023 Subsequent hospital visit by physician Marques Bradley MD Work Phone: Gastroenterology Comment on above: Dysphagia, unspecifi ed type [R13.10] Start: 07-13-2023 End: 07-13-2023 ambulatory MARQUES Patel MIRNA Facility:[facility] Start: 06-06-2023 End: 06-07-2023 ambulatory Samuel Estrella Facility:[facility] Start: 05-27-2023 Telephone encounter Evelyn Black RN General Surgery Comment on above: Results Start: 05-26-2023 End: 05-26-2023 ambulatory MARQUES BRADLEY Facility:[facility] Start: 05-25-2023 End: 05-25-2023 ambulatory JOEL PANCHAL [facility] Facility:[facility] Start: 05-25-2023 End: 05-25-2023 Nursing evaluation of patient and report Nurse [facility] 2 Work Phone: Gastroenterology Comment on above: Nausea Start: 05-16-2023 Orders Only Evelyn Black RN Gen eral Surgery Comment on above: Nausea (Primary Dx); Dysphagia, unspecified type Start: 05-06-2023 End: 05-07-2023 ambulatory MARQUES BALLMADAN Facility:[facility] Start: 05-02-2023 Telephone encounter Evelyn Black RN General Surgery Start: 04-26-2023 Telephone encounter Evelyn Black RN General Surgery Start: 04-21-2023 End: 04-21-2023 ambulatory Renny Gan Other [facility] Other Start: 04-21-2023 Office outpatient vi sit 15 minutes Renny TOUSSAINT [facility] Start: 04-18-2023 Telephone encounter Evelyn Black RN General Surgery Comment on above: [employer] Start: 04-07-2023 Telephone encounter Guillermo Martinez DO Work Phone: Gastroenterology Comment on above: Appointment Start: 04-05-2023 End: 04-05-2023 ambulatory Imad Asaad Other [facility] Other Start: 04-05-2023 Telephone encounter Imad Asaad [facility] Start: 03-29-2023 ambulatory Facility: [facility] Start: 03-26-2023 ambulatory Facility:[id number] Start: 03-26-2023 End: 03-31-2023 Evaluation and management of inpatient Renny Hairston Lyssa Facility:[facility] Start: 03-26-2023 ambulatory Facility:[id number] Start: 03-24-2023 End: 03-24-2023 ambulatory Imad Asaad Other [facility] Other Start: 03-24-2023 Telephone encounter Imad Asaad [facility] Start: 03-23-2023 End: 03-23-2023 Emergency department patient visit Judi Joan Mikael Facility:[facility] Start: 03-23-2023 End: 03-23-2023 Emergency department patient visit [employer] Judi Ugaldemer Work Phone: [facility] Work Phone: Start: 03-22-2023 End: 03-22-2023 ambulatory Imad Asaad Other [facility] Other Start: 03-22-2023 Telephone encounter Imad Asaad [facility] Start: 03-09-2023 End: 03-09-2023 ambulatory Imad Asaad Other [facility] Other Start: 03-09-2023 Telephone encounter Imad Asaad [facility] Start: 03-01-2023 End: 03-01-2023 ambulatory Imad Asaad Other [facility] Other Start: 03-01-2023 Telephone encounter Imad Asaad [facility] Start: 02-19-2023 End: 02-19-2023 Emergency department patient visit Zabrina Patton Facility:[facility] Start: 02-19-2023 End: 02-19-2023 Emergency department patient visit Zabrina Patton [facility] Start: 02-15-2023 End: 02-15-2023 Emergency department patient visit [employer] Judi Youssef Work Phone: [facility] Work Phone: Start: 11-30-2022 End: 12-01-2022 ambulatory JUDI YOUSSEF Facility:[facility] Start: 11-27-2022 End: 11-28-2022 ambulatory JUDI YOUSSEF Facility:[facility] Start: 11-26-2022 End: 11-26-2022 ambulatory Imad Asaad Other [facility] [employer] Other Start: 11-26-2022 Telephone encounter Imad Nany [facility] Start: 11-04-2022 End: 11-04-2022 ambulatory Judi Joan Mikael Facility:[facility] Start: 11-04-2022 End: 11-04-2022 Admission to same day surgery center [employer] Judijose manuel Youssef Work Phone: [facility] [place] Work Phone: Start: 11-04-2022 End: 11-04-2022 ambulatory ORANGE PICKER-C Judi Youssef Work Phone: [facility] Work Phone: Start: 11-01-2022 End: 11-02-2022 ambulatory JUDI MIKAEL Facility:[facility]1 Start: 10-26-2022 End: 10-26-2022 Emergency department patient visit Judi Joan Mikael Facility:[facility] Start: 10-26-2022 End: 10-26-2022 Emergency department patient visit ORANGE PICKER-C Judi Youssef Work Phone: [facility] Work Phone: Start: 09-23-2022 ambulatory Monique Enrique ty:Lilo GARCIA Start: 09-21-2022 End: 09-21-2022 ambulatory JUDI YOUSSEF Facility:[facility]1 Start: 09-18-2022 End: 09-18-2022 ambulatory BALTAZAR GEORGES . Facility:[facility]1 Start: 09-14-2022 End: 09-14-2022 ambulatory EUN WILSON . Facility:[facility]1 Start: 09-07-2022 End: 09-07-2022 ambulatory Jennie Ayon Other [facility] [employer] Other Start: 09-07-2022 Telephone encounter Jennie Ayon [employer] Start: 09-06-2022 End: 09-07-2022 ambulatory JUDI YOUSSEF Facility:[facility]1 Start: 08-20-2022 End: 08-20-2022 ambulatory BALTAZAR GEORGES . Facility:[facility]1 Start: 08-17-2022 End: 08-18-2022 ambulatory JUDI YOUSSEF Facility:[facility]1 Start: 08-11-2022 End: 08-12-2022 ambulatory JUDI YOUSSEF Facility:[facility]1 Start: 08-08-2022 End: 08-08-2022 ambulatory KATHRIN VANCE Facility:[facility]1 Start: 07-22-2022 End: 07-23-2022 ambulatory [facility] Start: 07-22-2022 End: 07-22-2022 Patient encounter procedure [facility] Start: 07-21-2022 End: 07-21-[address] NORA WINN Facility:[facility]1 Start: 07-15-2022 ambulatory JUDI YOUSSEF Facility: [facility]1 Start: 07-12-2022 Encounter for genera l adult medical examination without abnormal findings JUDI YOUSSEF [facility] Start: 07-08-2022 End: 07-09-2022 ambulatory JUDI YOUSSEF Facility:[facility]1 Start: 07-08-2022 End: 07-09-2022 Encounter for general adult medical examination without abnormal findings JUDI YOUSSEF Facility:[facility]1 Start: 07-05-2022 End: 07-05-[address] JOHNATHAN RUDOLPH Facility:[facility]1 Start: 06-07-2022 End: 06-07-2022 ambulatory BALTAZAR GEORGSE . Facility:[facility]1 Start: 06-06-2022 End: 06-06-2022 ambulatory BALTAZAR GEORGES . Facility:[facility]1 Start: 06-04-2022 End: 06-04-[address] NORA WINN Facility:[facility]1 Start: 04-29-2022 End: 04-29-2022 Lab Drop off Anai REAGAN [facility] Start: 04-14-2022 End: 04-14-2022 Patient encounter procedure Monique Reddymetz [facility] Start: 03-27-2022 End: 03-30-2022 Evaluation and management of inpatient SHAIKH Juan Luis DAVIS Facility:[facility]1 Start: 03-01-2022 End: 03-01-2022 Patient encounter procedure Monique Alexandria Jimmy [facility] Start: 02-02-2022 End: 02-02-2022 ambulatory BALTAZAR Larson Facility:[facility]1 Start: 01-28-2022 End: 01-28-2022 Patient encounter procedure Monique A Jimmy [facility] Start: 01-11-2022 End: 01-11-2022 Patient encounter procedure Ospina MERARY [facility] Start: 12-24-2021 End: 12-24-2021 Patient encounter procedure JHOANA MELGOZA [facility] Start: 08-13-2019 End: 08-16-2019 Evaluation and management of inpatient LEONA MORTENSEN Facility:[facility] Procedures Date Procedure Procedure Detail Performing Clinician Start: 07-14-2023 Esophagoscp rig transoral hypopharynx crv esoph Evelyn Black RN Start: 05-25-2023 Esophageal motility study w/interp&rpt Evelyn Black RN Start: 03-23-2023 Computed tomography of abdomen and pelvis with contrast DONI Youssef Work Phone: Start: 02-15-2023 Computed tomography of abdomen and pelvis with contrast ORANGE PICKER-C Judi Youssef Work Phone: Start: 11-04-2022 CT of small intestine ORANGE PICKER-C Judi Youssef Work Phone: Start: 10-26-2022 Computed tomography of abdomen and pelvis with contrast ORANGE PICKER-C Judi Youssef Work Phone: Start: 01-11-2022 Esophagogastroduodenoscopy [...] MELGOZA Comment on above: Dr. Mortensen in [place]. Hernia repair JHOANA MELGOZA Hysterectomy JHOANA MELGOZA Plan of Treatment Date Care Activity Detail Author Start: 05-06-2023 Covid-19 Vaccine () Covid-19 Vaccine () [facility] Start: 05-06-2023 Influenza vaccination [facility] Start: 09-05-2022 DEPRESSION ASSESSMENT DEPRESSION ASS ESSMENT [facility] Start: 01-01-2022 COVID-19 VACCINE (4 - Pfizer series) COVID-19 VACCINE (4 - Pfizer series) [facility] Start: 2020 SHINGRIX VACCINE (1 of 2) SHINGRIX VACCINE (1 of 2) [facility] Start: 2015 COLOGUARD (FIT-DNA) COLOGUARD (FIT-D NA) [facility] Start: 2015 Colonoscopy COLONOSCOPY [facility] Start: 2015 COLORECTAL CANCER SCREENING COLORECTAL CANCER SCREENING [facility] Start: [address] COLONOGRAPHY [facility] Start: 2015 DIABETES SCREEN DIABETES SCREEN [facility] Start: 2015 Diabetes Screening Diabetes Screenin g [facility] Start: 2015 FECAL OCCULT BLOOD FECAL OCCULT BLOO D [facility] Start: 2015 Lipid 1996 panel - S cristine or Plasma Lipid Screening [facility] Start: 2015 LIPID SCREEN LIPID SCREEN [facility] Start: 2015 SIGMOIDOSCOPY SIGMOIDOSCOPY [facility] Start: 2010 Mammography [facility] Start: 2000 HPV TESTING HPV TESTING [facility] Start: 1991 PAP TESTING PAP TESTING [facility] Start: 1989 Urine microalbumin profile [facility] Start: 1988 HEPATITIS C SCREENING HEPATITIS C SC REENING [facility] Start: 1988 HIV SCREENING HIV SCREENING [facility] Start: 1970 COVID-19 VACCINE (#1) COVID-19 VACCI NE (#1) [facility] Start: 1970 HEPATITIS B (1 of 3 - 3-dose series) HEPATITIS B (1 of 3 - 3-dose series) [facility] Start: 1970 Hepatitis B Vaccine (1 of 3 - 3-dose series) Hepatitis B Vaccine (1 of 3 - 3-dose series) [facility] End: 07-29-2024 EGD - THERAPEUTIC, EUS, OR TUBE INTERVENTIONS EGD - THERAPEUTIC, EUS, OR TUBE INTERVENTIONS Endoscopy Routine Gastroparesis 1 Occurrences starting 07/29/2023 until 07/29/2024 [facility] Work Phone: Comment on above: 1 Occurrences starti ng 07/29/2023 until 07/29/2024 End: 05-16-2024 Esophageal motility study w/interp&rpt MANOMETRY ESOPHAGEAL Endoscopy Routine Nausea 1 Occurrences starting 05/16/2023 until 05/16/2024 [facility] Work Phone: Comment on above: 1 Occurrences starti ng 05/16/2023 until 05/16/2024 Esophageal motility study w/interp&rpt MANOMETRY ESOPHAGEAL Endoscopy Routine Nausea 05/25/2023 [facility] Work Phone: End: 06-14-2024 Gastric emptying imaging study NM GASTRIC EMPTYING SOLID Radiology Routine Nausea 1 Occurrences starting 05/16/2023 until 06/14/2024 [facility] Work Phone: Comment on above: 1 Occurrences starti ng 05/16/2023 until 06/14/2024 Patient Education [facility] Work Phone: Patient referral [facility] Work Phone: SURGICAL PATHOLOGY [facility] Work Phone: Comment on above: Release Upon Orderin g for 1 Occurrences starting 07/14/2023, 1 completed [facility] Immunizations Immunization Date Immunization Notes Care Provider Jamal jackson 06-09-2022 influenza virus vaccine, unspecified formulation Nurse 2 Work Phone: [facility] 03-18-2022 SARS-CoV-2 mRNA (vcspaxczlyv-ofim-wiv jett) vaccine Ospina SALAM [facility] 11-06-2021 SARS-CoV-2 (COVID-19 ) mRNA BNT-162b2 vax Ospina SALAM [facility] 05-06-2021 influenza virus vaccine, unspecified formulation JHOANA MELGOZA [facility] 02-26-2021 SARS-CoV-2 (COVID-19 ) mRNA BNT-162b2 vax JHOANA MELGOZA [facility] 02-05-2021 SARS-CoV-2 (COVID-19 ) mRNA BNT-162b2 frantz REAGAN [facility] Comment on above: Result Comment: 2021: [id number] NEGATED: Highlighted row has not occurred!04-14-2022 influenza virus vaccine, unspecified formulation Monique Marquez [facility] Payers Date Payer Category Payer Unknown RINA MARTINEZ SS PPO [id number] 2022-Present [phone] [address] [place] [address] PPO [id number] 2018 Private Health Insurance [id number] 2018 Private Health Insurance [facility] CHOICE PLUS [id number] 2018-Present [phone] [address] [place] [address] HMO [id number] 1970 Unknown [id number] 2.16.840.1.736829.3.579.2 .647 1970 Unknown [id number] 2.16.840.1.740692.3.579.2 .593 1970 Unknown [id number] 2.16.840.1.002006.3.579.2 .593 1970 Unknown [id number] 2.16.840.1.823873.3.579.2 .593 1970 Unknown [id number] 2.16.840.1.061273.3.579.2 .593 1970 Unknown [id number] 2.16.840.1.124979.3.579.2 .593 1970 Unknown [id number] 2.16.840.1.196602.3.579.2 .593 1970 Unknown [id number] 2.16.840.1.438768.3.579.2 .593 1970 Unknown [id number] 2.16.840.1.253562.3.579.2 .593 1970 Unknown [id number] 2.16.840.1.908085.3.579.2 .593 1970 Unknown [id number] 2.16.840.1.519086.3.579.2 .593 1970 Unknown [id number] 2.16.840.1.093240.3.579.2 .593 1970 Unknown [id number] 2.16.840.1.280521.3.579.2 .593 1970 Unknown [id number] 2.16.840.1.033376.3.579.2 .593 1970 Unknown [id number] 2.16.840.1.395541.3.579.2 .593 1970 Unknown [id number] 2.16.840.1.949664.3.579.2 .593 1970 Unknown [id number] 2.16.840.1.803486.3.579.2 .593 1970 Unknown [id number] 2.16.840.1.046321.3.579.2 .593 1970 Unknown [id number] 2.16.840.1.741000.3.579.2 .593 1970 Unknown [id number] 2.16.840.1.816406.3.579.2 .593 1970 Unknown [id number] 2.16.840.1.696106.3.579.2 .593 1970 Unknown [id number] 2.16.840.1.946109.3.579.2 .356 1970 Unknown [id number] 2.16.840.1.587454.3.579.2 .356 1970 Unknown [id number] 2.16.840.1.559965.3.579.2 .727 1970 Unknown [id number] 2.16.840.1.186148.3.579.2 .727 1970 Unknown [id number] 2.16.840.1.051666.3.579.2 .727 1970 Unknown [id number] 2.16.840.1.034432.3.579.2 .727 1959 Medicaid [id number] 1959 Self-pay [id number] 1959 Unknown [id number] 1959 Unknown [id number] Medicare Medicare [id number] Unknown [id number] 2.16.840.1.201949.3.579.2 .531 Unknown [id number] 2.16.840.1.648084.3.579.2 .531 Unknown [id number] 2.16.840.1.300578.3.579.2 .531 Unknown [id number] 2.16.840.1.411300.3.579.2 .531 Unknown [id number] 2.16.840.1.859359.3.579.2 .531 Worker's Compensation Industrial Self Ins [facility] [id number] Social History Date Type Detail Facility Start: 12-03-2021 End: 05-06-2023 Tobacco smoking status Ex-smoker (finding) [facility] Start: 08-12-2020 End: 05-06-2023 Sex Assigned At Female [facility] Tobacco smoking status Never Joen [facility] Start: 1970 Sex Assigned At Female [facility] End: 09-05-2011 History of tobacco use Current smoker [facility] Work Phone: End: 09-05-2011 History of tobacco use Cigarette Smoker [facility] Work Phone: Start: 04-28-2018 End: 05-06-2023 Tobacco use and exposure Smokeless tobacco non-user [facility] Work Phone: Start: 04-28-2018 End: 05-06-2023 Alcohol intake Current drinker of alcohol (finding) [facility] Start: 08-12-2020 End: 05-06-2023 History of Social function [facility] Start: 04-28-2018 End: 05-06-2023 Tobacco Comment still smokes [facility] Start: 04-28-2018 Alcohol [facility] Start: 1970 Sex Assigned At Not on file C [facility] Start: 07-14-2023 Alcohol intake Ex-drinker (finding) [facility] Functional Status Date Assessment Result Facility 02-19-2023 Functional Status N/A [facility] 07-22-2022 Functional Status N/A [facility] 04-14-2022 Functional Status N/A [facility] Clinical Notes 12-02-2021 to 08-25-2023 Evelyn Black RN - 07/29/2023 11:17 AM ESTPatient InstructionsTelephone Encounter - Evelyn Black RN - 07/22/2023 3:[address] - 07/22/2023 1:15 PM EST Note Date & Type Note Facility 08-25-2023 Note HNO ID: [id number] Author: Ellis Mayberry DO Service: ? Author [...] Successful intubation technique: video laryngoscopy Devices used: [employer] Endotracheal tube insertion site: oral Blade: Jake Blade size: #3 ETT size (mm): 7.0 Measured from: lips Measurement (cm): 22 Placement verified by: chest auscultation and capnometry Cormack-Lehane Classification: grade I - full view of glottis Number of attempts at approach: 1 Airway not difficult SIGNATURE: Ellis Mayberry DO PATIENT NAME: Constantino Cardoso DATE: August 25, 2023 TIME: 2:59 PM CSN: [id number] [facility] 08-25-2023 Note Q3 Patient Name: Constantino Cardoso Procedure Date: 08/25/2023 2:38 PM Date of : 1970 Admit Type: Outpatient Age: 53 Gender: Female Note Status: Finalized Attending MD: Marques Bradley MD, [id number] Procedure: Upper GI endoscopy Indications: Gastroparesis- for [...] the patient. Procedure Code(s): --- Professional --- 27349 Diagnosis Code(s): --- Professional --- K44.9 Z98.890 CPT copyright 2020 [employer]. All rights reserved. Attending Participation: I personally performed the entire procedure. Scope In: 2:59:10 PM Scope Out: 3:37:20 PM MD Marques Rainey MD 08/25/2023 3:41:00 PM This report has been signed electronically by Marques Bradley MD Number of Addenda: 0 Note Initiated On: 08/25/2023 2:38 PM [facility] 07-29-2023 Note HNO ID: [id number] Author: Evelyn Black RN Service: ? Author Type: Registered Nurse Type: Progress Notes Filed: 07/29/2023 11:18 AM Note Text: e [facility] 07-29-2023 History of Present illness Narrative e documented in this encounter [facility] 07-22-[address] - [...] High Protein, Atkins, Boost Glucose Control, Owyn, [place] Breakfast Essentials Light Start mixed with Fairlife [...] calories, no carbonation, no caffeine. Protein juarez ([id number], Isopure, Gatorade protein), electrolyte drinks (Gatorade or Powerade zero, sugar free liquid IV or Drip Drop), sugar free jello and sugar free popsicles are also acceptable. Nutrition Monitoring & Evaluation: increase PO intake >75% of estimated needs, weight check and patient update Need for Follow up: based on surgery status documented in this encounter [facility] 07-22-2023 Note HNO ID: [id number] Author: Melissa Montalvo RD Service: ? Author Type: Registered Dietitian Type: Progress Notes Filed: 07/22/2023 4:06 PM Note Text: [facility] Nutrition Therapy: Virtual Consult - Initial Assessment I have communicated my name and active licensure. The patient?s identity and physical location were verified at the time of this visit. Either the patient or their legal software support representative has been informed of the risks [...] High Protein, Atkins, Boost Glucose Control, [place], [place] Breakfast Essentials Light Start mixed with Fairlife [...] calories, no carbonation, no caffeine. 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 Humble body weight: 159 lbs. 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 [facility] 07-22-2023 Miscellaneous Notes BMI SPECIALTY CARE COORDINATION TELEPHONE ENCOUNTER Pt was seen in clinic and an EGD was ordered and completed. Recommendation was a GPOEM. Will consult with surgeon next week regarding next POC for pt. Pt VU. documented in this encounter [facility] 07-22-2023 History of Present illness Narrative [facility] Nutrition Therapy: Virtual Consult - Initial Assessment I have communicated my name and active licensure. The patient s identity and physical location were verified at the time of this visit. Either the patient or their legal software support representative has been informed of the risks [...] High Protein, Atkins, Boost Glucose Control, [place], [place] Breakfast Essentials Light Start mixed with Fairlife fat free or 1% milk. -Check www.bariatricfusion.com or www.[employer].com for additional options. Take small bites, eat slowly, chew food well, and always eat protein first. Separate eating and drinking by 30 min before and after. Aim for >64 oz water/day. Take small sips and avoid straws. Liquids should be sugar-free, no calories, no carbonation, no caffeine. 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 Humble body weight: 159 lbs. 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 Procedure Code(s): --- Professional --- 86058 Diagnosis Code(s): --- Professional --- K44.9 K31.89 Z98.890 R10.13 CPT copyright 2020 [employer]. All rights reserved. Attending Participation: I personally performed the entire procedure. Scope In: 10:40:19 AM Scope Out: 10:50:37 AM MD Marques Rainey MD 07/14/2023 10:53:09 AM This report has been signed electronically by Marques Bradley MD Number of Addenda: 0 Note Initiated On: 07/14/2023 10:24 AM [facility] 07-14-2023 Nurse Note 1121: Dr. [...] In Department: GASTROENTEROLOGY documented in this encounter [facility] 07-13-2023 Note HNO ID: [id number] Author: Brennen Shaw, PhD Service: ? Author Type: Physician Type: Progress Notes Filed: 07/19/2023 10:07 AM Note Text: [facility]IAT[facility] SURGERY BEHAVIORAL HEALTH EVALUATION DATE OF SERVICE: July 13, 2023 TIME OF SERVICE: 2:10 PM-3:29 PM COST CENTER: [facility] CPT CODE: - 55437 Brief Emotional/Behavioral Assessment with scoring/documentation - [id number] Virtual Psych Diagnostic Eval BILLING CODE: ENDO PSYL MAIN 43480/Marco DATE OF FIRST SERVICE THIS CYCLE: July 13, 2023 SESSION #: 1 BMI Surgical Pathway Visit type: Bariatric Surgeon Visit I have communicated my name and active licensure. The patient's identity and physical location were verified at the time of this visit. Either the patient or their legal software support representative has been informed of the risks [...] other people who have undergone the procedure ([facility] Specific areas of understanding that should be [...] the binge episod (more content not included)... [facility] 05-27-2023 Miscellaneous Notes BMI SPECIALTY CARE COORDINATION TELEPHONE ENCOUNTER Pt contacted today regarding testing ordered when she had a consult with Dr Bradley. Manometry was normal and her GES was severely delayed. Reviewed results and will discuss with if POP is the next plan of care. Will update pt. Pt agreed with plan. documented in this encounter [facility] 05-26-2023 Note HNO ID: [id number] Author: Nabil Bell RT(R) Service: Nuclear Medicine [...] 715 PATIENT DISCHARGED TO: Ambulatory patient, left [place] department area. A Diagnostic radioactive procedure has taken place, with no further precautions necessary other than routine body substance precautions. More information regarding radiation safety can be found using this link: [email or web address] SIGNATURE: RT Charmaine(R) PATIENT NAME: Constantino Cardoso DATE: May 26, 2023 TIME: 7:17 AM PAGER/CONTACT #: [facility] 05-25-2023 Note HNO ID: [id number] Author: Pedro Gonzalez LPN Service: ? Author Type: LICENSED NURSE Type: Progress Notes Filed: 05/25/2023 4:15 PM Note Text: Name: Constantino Cardoso [facility]#: [id number] Date: 05/25/2023 ESOPHAGEAL MANOMETRY TEST Indication: Nausea [...] the test without difficulty. .Pedro Gonzalez LPN [facility] 05-25-2023 History of Present illness Narrative Name: Constantino Cardoso [facility]#: [id number] Date: 05/25/2023 ESOPHAGEAL MANOMETRY TEST Indication: Nausea [...] .Pedro Gonzalez LPN documented in this encounter [facility] 05-16-2023 Miscellaneous Notes BMI SPECIALTY CARE [...] a gastric bypass. documented in this encounter [facility] 05-06-2023 Note HNO ID: [id number] Author: Marques Bradley MD Service: ? Author [...] for internal providers or letter via the [employer] for external providers. Chief Complaint: [...] Bradley MD Date: 05/12/2023 Time: 8:15 AM [facility] 05-02-2023 Miscellaneous Notes BMI SPECIALTY CARE COORDINATION TELEPHONE ENCOUNTER Chief complaint & duration dysphagia. Type of procedure: hernia repair hiatal with Dr. OMRTENSEN in [place] February of 2019. Sending OP notes Nursing assessment (subjective/objective) . pain in chest area and getting worse Went to [facility] March 2023 who told her she needed a stent in her heart..but her c/o were difficulty swallowing and sent pt home and referred her to [facility] and was there in the hospital for [...] after records obtained documented in this encounter [facility] 04-26-2023 Miscellaneous Notes [facility] SPECIALTY CARE COORDINATION TELEPHONE ENCOUNTER Second attempt to contact this pt. Pt has upcoming information, and unable to complete any chart prep, history, symptoms, testing etc. LVM and call back number. documented in this encounter [facility] 04-21-2023 Evaluation note Encounter Date Diagnosis Assessment Notes Apr, Esophageal dysmotility (ICD-10 - K22.4) Apr, Esophageal spasm (ICD-10 - K22.4) Apr, Nausea & vomiting (ICD-10 - R11.2) Patinet reports that she still has nausea but no vomiting Patient reports that she is to see Dr. Strong at [facility] Patient is to start dicyclomine 20 mg 4 times daily sent to [facility] today RTO 6 weeks Apr, Dysphagia (ICD-10 - R13.10) [facility] Other 08-14-2023 Miscellaneous Notes* Telephone Encounter - Evelyn Black RN - 04/18/2023 2:13 PM EDT [facility] SPECIALTY CARE COORDINATION TELEPHONE ENCOUNTER Contacted pt regarding a referral from Dr Martinez's office. LVM and call back number. documented in this [facility]23 Miscellaneous Notes* Telephone Encounter - Yancy Lopez - 04/07/2023 1:15 PM EDT Referral rec'd documented in this encounter[facility]06-17-[facility]23 Evaluation + Plan note Extracted from: Title:ED Note Author:Isabella Patton DOsophia Ibrahim Date :02/19/23 Right wrist sprain (S63.501A [...] pain, # 20 tab(s), Refills(s) 0, Pharmacy: [facility]/pharmacy #[id number], 170, cm, 02/19/23 0:56:00 EDT, Height/Length Dosing, 90.2, kg, 02/19/23 0:56:00 EDT, Weight Dosing XR Elbow 3+ Views Right XR Wrist 3+ Views Right [facility]06-17-2023 Hospital Discharge instructions Patient Education 02/19/2023 01:41:18 [...] are safe for you. General instructions Take uezd-qjy-ejqitny and prescription medicines only as told by [...] provider. Document Revised: 12/29/2020 Document Reviewed: 12/29/2020 [employer] Patient Education 2022 [facility]. Follow Up Care 02/19/2023 00:51:16 With:JUDI YOUSSEF Address: [address] [place] [address] [phone] Business (1) When:02/22/2023 Comments:Take the pain medication as prescribed as needed for pain. Please follow-up with your primary care doctor in the next 2 to 3 days for further evaluation management. Please return to the ED for any new or worsening symptoms or [facility]08-10-2022 Hospital Discharge instructions Patient Education 04/14/2022 15:31:37 [...] water added (diluted fruit juice). Eat bland, cxse-uk-lwdcnf foods in small amounts as you are able. These foods include bananas, applesauce, rice, lean meats, toast, and crackers. Avoid fluids that contain a lot of sugar or caffeine, such as energy drinks, sports drinks, and soda. Avoid alcohol. Avoid spicy or fatty foods. General instructions Take xdar-eyh-wvqrsiw and prescription medicines only as told by your health care provider. Drink enough fluid to keep your urine pale yellow. Wash your hands often using soap and water. If soap and water are not available, use hand pocketbook maker. Make sure that all people in your [...] eating and drinking to prevent dehydration. Take onwe-pvw-dcleann and prescription medicines only as told by [...] 08/22/2006 Document Revised: 12/14/2019 Document Reviewed: 01/30/2019 [employer] Patient Education 2020 [facility]. Follow Up Care 01/28/2022 13:58:23 With:Monique Marquez CNP Address: When:3 months [facility] 05-26-2022 Hospital Discharge instructions [...] drinks. ?Tomatoes and foods made with tomatoes. ?[place] or spicy foods. ?Chocolate and peppermint. Do not drink alcohol. General instructions Take ktji-jbs-qzpscew and prescription medicines only as told by [...] 11/11/2004 Document Revised: 12/18/2018 Document Reviewed: 12/18/2018 [employer] Patient Education 2020 [facility]. Follow Up Care 01/13/2022 12:36:01 With:Monique Marquez CNP Address: When:3 months [facility] 05-09-2022 Hospital Discharge instructions Patient Education 01/11/2022 09:56:58 Endoscopy, Care After Procedure [facility] (CUSTOM) Endoscopy Care After Procedure Please read [...] Document Re-Released: 02/13/2007 ExitCare Patient Information 2010 [employer]. 01/11/2022 09:56:58 Pearce's Esophagus Pearce's Esophagus Pearce's [...] drinks. ?Tomatoes and foods made with tomatoes. ?[place] or spicy foods. ?Chocolate and peppermint. Do not drink alcohol. General instructions Take xjqg-uyp-tcnmyie and prescription medicines only as told by [...] 11/11/2004 Document Revised: 12/18/2018 Document Reviewed: 12/18/2018 [employer] Patient Education [employer]. Follow Up Care 12/03/2021 15:32:26 With:Anai REAGAN Address: [address] [place] [address] Business (1) When:1 to 2 weeks Comments:Call for any problems. [facility]03-30-2022 Hospital Discharge instructions Follow Up Care 12/02/2021 10:32:32 With:JHOANA MELGOZA PA-C, URL Address: [address] [place] [address] When: Unknown [facility] Evaluation + Plan note Future Appointments Appointment Date:01/11/2022 09:40:00 AM Scheduled Provider: Location:[facility] Appointment Type:Surgery FT [facility] Evaluation + Plan note Future Appointments Appointment Date:04/14/2022 03:00:00 PM Scheduled Provider:Monique Marquez CNP Location:[facility] Appointment Type:[facility] Follow Up Future Scheduled Tests Radiology* NM Gastric Emptying Study 01/28/22 [facility] Evaluation + Plan note Future Appointments Appointment Date:04/14/2022 03:00:00 PM Scheduled Provider:Monique Marquez CNP Location:[facility] Appointment Type:BAD [facility] Up [facility] Future Appointments Appointment Date:04/20/2022 12:00:00 PM Scheduled Provider: [facility] Type:US Abdominal/Pelvis () Appointment Date:06/02/2022 09:45:00 AM Scheduled Provider:Anai REAGAN MD Location:[facility] Appointment Type:[facility] Follow Up Future Scheduled Tests Laboratory* Fecal WBC Lactoferrin 04/14/22 * Giardia lamblia, Direct Detection EIA 04/14/22 * O & P Exam, Routine 04/14/22 * Clostridium difficile by PCR 04/14/22 * Enteric Panel by PCR 04/14/22 * CBC w/ Auto Diff 04/14/22 * Comprehensive Metabolic Panel 04/14/22 Radiology* US Abdomen Complete 04/20/22 [facility] Evaluation + Plan note Future Appointments Appointment Date:06/02/2022 09:45:00 AM Scheduled Provider:Anai REAGAN MD Location:[facility] Appointment Type:[facility] Follow Up Diagnostic Tests Pending * O & P Exam, Routine 04/29/22 * Giardia lamblia, Direct Detection EIA 04/29/22 [facility] noteNo assessment information available [facility] Work Phone: Evaluation noteNo InformationNopemiscot memorial health systems shipbeat Other Evaluation note* Diagnosis Nausea- Primary Nausea alone Dysphagia, unspecified type documented in this encounter [facility] note* Diagnosis Nausea Nausea alone [facility] Dysphagia, unspecified type Gastroparesis History of Ramiro fundoplication Personal history of surgery to other organs documented [facility] this [facility]* Diagnosis Gastroparesis- Primary Malnutrition of moderate degree (HCC) Malnutrition of moderate degree Gastro-esophageal reflux disease without esophagitis Esophageal reflux Overweight (BMI 25.0-29.9) Overweight Dietary counseling and surveillance Dietary surveillance and counseling documented in this encounter [facility]* Diagnosis Gastroparesis- Primary documented in this encounter [facility] general Narrative - Reported* Type Description Date Medical History mitral valve prolapse Medical History gallstones Medical History Acid reflux Medical History Hiatal Hernia Medical History headache Surgical History hysterectomy Surgical History cholecystectomy Surgical History hiatal hernia repair Hospitalization History see above Hospitalization History kindey infections hospit alized x3 [place] Other Hospital course Narrative No data available for this section [facility] Discharge instructions No data available for this section [facility] Additional Instructions Follow-up with your primary care doctor Return to ED if develop worsening symptoms [facility] Work Phone: Hospital Discharge instructions Additional Instructions If your symptoms return/worsen or you develop any further concerns or symptoms please see your doctor or return to the emergency department immediately. Please be sure to continue follow-up with the health management consultant and with your scheduled EGD and further testing.[facility] Work Phone: Progress note No data available for this section [facility] for referral (narrative)* Diagnostic Procedure Only (Routine) - Authorized Specialty Diagnoses / Procedures Referred By Contsavanah t Referred To Contact [facility] Diagnoses Nausea Procedures NM GASTRIC EMPTYING SOLID GASTRIC EMPTYING STUDY Marques Bradley MD [address] [place] [address] Molecular & Functional Imaging [address] [place] [address] Referral ID Status Reason Start Date Expiration Date Visits Requested Visits Authorized [id number] Authorized Auto-Generat ed Referral 05/16/2023 06/14/2024 1 1 * Outpatient Procedure (Routine) - Authorized Specialty Diagnoses / Procedures Referred By Eileen mueller Referred To Contact [facility] Diagnoses Nausea Procedures MANOMETRY ESOPHAGEAL ESOPHAGEAL MOTILITY STUDY W/INTERP&RPT Marques Bradley MD [address] [place] [address] [address] Referral ID Status Reason Start Date Expiration Date Visits Requested Visits Authorized [id number] Authorized Auto-Generat ed Referral 05/16/2023 05/16/[address] [facility] for referral (narrative)* Outpatient Procedure (Routine) - Closed Specialty Diagnoses / Procedures Referred By Eileen mueller Referred To Contact [facility] Diagnoses Dysphagia, unspecified type Gastroparesis History of Ramiro fundoplication Procedures EGD - THERAPEUTIC, EUS, OR TUBE INTERVENTIONS ESOPHAGOGASTRODUODENOSCOPY TRANSORAL DIAGNOSTIC STOMACH SURGERY PROCEDURE UNLISTED Marques Bradley MD [address] [place] [address] [address] Referral ID Status Reason Start Date Expiration Date V isits Requested Visits Authorized [id number] Closed Auto-Generate d Referral 05/27/2023 05/27/[address] [facility] for referral (narrative)* Outpatient Procedure (Routine) - Authorized Specialty Diagnoses / Procedures Referred By Eileen mueller Referred To Contact [facility] Diagnoses Gastroparesis Procedures EGD - THERAPEUTIC, EUS, OR TUBE INTERVENTIONS ESOPHAGOGASTRODUODENOSC OPY TRANSORAL DIAGNOSTIC STOMACH SURGERY PROCEDURE UNLISTED Marques Bradley MD [address] [place] [address] [facility] [address] [place] [address] Referral ID Status Reason Start Date Expiration Date Visits Requested Visits Authorized [id number] Authorized Auto-Generat ed Referral 3 07/29/[address] [facility] for visit Narrative* Outpatient Procedure (Routine) - Closed Specialty Diagnoses / Procedures Referred By Contac t Referred To Contact [facility] Diagnoses Dysphagia, unspecified type Gastroparesis History of Ramiro fundoplication Procedures EGD - THERAPEUTIC, EUS, OR TUBE INTERVENTIONS ESOPHAGOGASTRODUODENOSCOPY TRANSORAL DIAGNOSTIC STOMACH SURGERY PROCEDURE UNLISTED Marques Bradley MD [address] [place] [address] [facility] Disease [address] [address] Referral ID Status Reason Start Date Expiration Date V isits Requested Visits Authorized [id number] Closed Auto-Generate d Referral 05/27/2023 05/27/2024 1 1 [facility] Summary Purpose Family History No Family [...] 018 10:23am Hospital Course Note MR#: [id number] I [facility] Pt. Name: Constantino Cardoso Admitted: 08/13/2019 Discharged: [...] a 49-year-old female, who was transferred to [facility] from [facility] with acute abdominal pain. The pain has started on Tuesday while at work. 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 The pain feels similar to when she was here in April during her stay. During that time, she was told there was nothing left for Dr. Mortensen to do and she has been following up with GI specialist in [place]. She is actually due to have an EGD on August 22, 2019. She has been having nausea, but no vomit (more content not included)... Chief Complaint and Reason for Visit Chief Complaint stomach pain/hx marium Chief Complaint stomach pain/hx marium R10.9 K59.00 Chief Complaint abd pain stomach pian/vomiting Additional Source Comments INFORMATION SOURCE (unrecogn ized section and content) DATE CREATED AUTHOR 06/03/2020 [facility] DATE CREATED AUTHOR AUTHOR'S ORGANIZ ATION 01/17/2023 [facility] DATE CREATED AUTHOR AUTHOR'S ORGANIZ ATION 04/02/2023 [facility] DATE CREATED AUTHOR AUTHOR'S ORGANIZ ATION 05/16/2023 [facility] DATE CREATED AUTHOR AUTHOR'S ORGANIZ ATION 06/11/2023 [facility] DATE CREATED AUTHOR AUTHOR'S ORGANIZ ATION 08/26/2023 [facility] Care Team (unrecognized sect ion and content) Team Status: Inactive Member Role Status Dates Judi Youssef ORANGE PICKER-C Primary Care Provider Active Conner Griffith DO Emergency Provider Active Team Status: Active Member Role Status Dates Judi Youssef NP-C Primary Care Provider Active Team Status: Inactive Member Role Status Dates Jennie Ayon MD Attending Provider Active Judi Youssef NP-Paula Primary Care Provider Active Team Status: Inactive Member Role Status Dates Judi Youssef ORANGE PICKER-C Primary Care Provider Active Pete Thakkar DO Emergency Provider Active Orthophotography Technician Relationship Specialty Start Date End Date Joel Alejandra PCP - General Family Medicine 04/26/18 Rafa Rangel [address] [place] [address] Referring General Surgery 04/26/18 Orthophotography Technician Relationship Specialty Start Date End Date Joel Alejandra PCP - General Family Medicine 04/26/18 Rafa Rangel [address] [place] [address] Referring General Surgery 04/26/18 Orthophotography Technician Relationship Specialty Start Date End Date Joel Alejandra PCP - General Family Medicine 04/26/18 Rafa Rangel [address] [place] [address] Referring General Surgery 04/26/18 Orthophotography Technician Relationship Specialty Start Date End Date Joel Alejandra PCP - General Family Medicine 04/26/18 Rafa Rangel [address] [place] [address] Referring General Surgery 04/26/18 Orthophotography Technician Relationship Specialty Start Date End Date Joel Alejandra PCP - General Family Medicine 04/26/18 Rafa Rangel [address] [place] [address] Referring General Surgery 04/26/18 Orthophotography Technician Relationship Specialty Start Date End Date Joel Alejandra PCP - General Family Medicine 04/26/18 Rafa Rangel [address] [place] [address] Referring General Surgery 04/26/18 Orthophotography Technician Relationship Specialty Start Date End Date Joel Alejandra PCP - General Family Medicine 04/26/18 Rafa Rangel [address] [place] [address] [address] [place] [address] Referring General Surgery 04/26/18 Orthophotography Technician Relationship Specialty Start Date End Date Joel Alejandra PCP - General Family Medicine 04/26/18 Rafa Rangel [address] [place] [address] [facility] [address] [place] [address] Referring General Surgery 04/26/18 Orthophotography Technician Relationship Specialty Start Date End Date Joel Alejandra PCP - General Family Medicine 04/26/18 Rafa Rangel [address] [place] [address] [facility] [address] [place] [address] Referring General Surgery 04/26/18 Orthophotography Technician Relationship Specialty Start Date End Date Joel Alejandra PCP - General Family Medicine 04/26/18 Rafa Rangel [address] [place] [address] Referring General Surgery 04/26/18 Orthophotography Technician Relationship Specialty Start Date End Date Joel Alejandra PCP - General Family Medicine 04/26/18 Rafa Rangel [address] [phone] Referring General Surgery 04/26/18 Goals (unrecognized section and content) Goals may be documented in a n alternate section REASON FOR VISIT (unrecogniz ed section and content) Reason Comments Appointment Reason Comments [employer] 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 - Other Reason Onset Date Comments Procedure 05/25/2023 Manometry Esopha geal Specialty Diagnoses / Procedures Referred By Contac t Referred To Contact [facility] [place] Diagnoses Nausea Procedures MANOMETRY ESOPHAGEAL ESOPHAGEAL MOTILITY STUDY W/INTERP&RPT Marques Bradley MD [address] [place] [address] [address] Referral ID Status Reason Start Date Expiration Date V isits Requested Visits Authorized [id number] Closed Auto-Generate d Referral 05/16/2023 05/16/2024 1 1 Reason Comments Results Reason Comments Patient Education Assessment Source Comments (unrecognize d section and content) In the event this informatio n is protected by the Federal Confidentiality of Alcohol and Drug Abuse Patient Records regulations: The Federal rules restrict any use of the information to criminally investigate or prosecute any alcohol or drug abuse patient.[facility] the event this information is protected by the Federal Confidentiality of Alcohol and Drug Abuse Patient Records regulations: The Federal rules restrict any use of the information to criminally investigate or prosecute any alcohol or drug abuse patient.[facility] Hospital[facility] the event this information is protected by the Federal Confidentiality of Alcohol and Drug Abuse Patient Records regulations: The Federal rules restrict any use of the information to criminally investigate or prosecute any alcohol or drug abuse patient.[facility] HospitalIn the event this information is protected by the Federal Confidentiality of Alcohol and Drug Abuse Patient Records regulations: The Federal rules restrict any use of the information to criminally investigate or prosecute any alcohol or drug abuse patient.[facility] Hospital[facility] the event this information is protected by the Federal Confidentiality of Alcohol and Drug Abuse Patient Records regulations: The Federal rules restrict any use of the information to criminally investigate or prosecute any alcohol or drug abuse patient.[facility] Hospital[facility] the event this information is protected by the Federal Confidentiality of Alcohol and Drug Abuse Patient Records regulations: The Federal rules restrict any use of the information to criminally investigate or prosecute any alcohol or drug abuse patient.[facility] Hospital[facility] the event this information is protected by the Federal Confidentiality of Alcohol and Drug Abuse Patient Records regulations: The Federal rules restrict any use of the information to criminally investigate or prosecute any alcohol or drug abuse patient.[facility] Hospital[facility] the event this information is protected by the Federal Confidentiality of Alcohol and Drug Abuse Patient Records regulations: The Federal rules restrict any use of the information to criminally investigate or prosecute any alcohol or drug abuse patient.[facility] Hospital[facility] the event this information is protected by the Federal Confidentiality of Alcohol and Drug Abuse Patient Records regulations: The Federal rules restrict any use of the information to criminally investigate or prosecute any alcohol or drug abuse patient.[facility] HospitalIn the event this information is protected by the Federal Confidentiality of Alcohol and Drug Abuse Patient Records regulations: The Federal rules restrict any use of the information to criminally investigate or prosecute any alcohol or drug abuse patient.[facility] HospitalIn the event this information is protected by the Federal Confidentiality of Alcohol and Drug Abuse Patient Records regulations: The Federal rules restrict any use of the information to criminally investigate or prosecute any alcohol or drug abuse patient.[facility] Hospital[facility] the event this information is protected by the Federal Confidentiality of Alcohol and Drug Abuse Patient Records regulations: The Federal rules restrict any use of the information to criminally investigate or prosecute any alcohol or drug abuse patient.[facility] FOR RECORDS PERTAINING TO PATIENTS WHO [...] ON THE PRIMARY CLINICAL RECORDS. [facility] [employer] [facility]. provides no warranty or guarantee of the accuracy or completeness of information in this document.
[2023-11-21 10:37] LABS: Bilirubin Urine NEGATIVE (NEGATIVE); Blood Urine TRACE-I (NEGATIVE); Clarity Urine CLEAR (CLEAR); Color Urine LT. YELLOW (YELLOW); Glucose Urine UA NEGATIVE (NEGATIVE); Ketones Urine NEGATIVE (NEGATIVE); Leukocyte Esterase Urine SMALL (NEGATIVE); Nitrite Urine NEGATIVE (NEGATIVE); Protein Urine NEGATIVE (NEG/TRACE); Specific Gravity Urine 1.025 (1.005-1.025); Urobilinogen Urine 0.2 EU/dL (0.2-1.0)
[2023-11-21 10:58] LABS: Bacteria Urine NONE SEEN #/HPF (NONE SEEN); Cast Seen? NONE SEEN #/LPF (NONE SEEN); Crystals Seen? None Seen #/HPF (None Seen); Mucus Urine TRACE (NONE SEEN); RBC Urine 0-2 #/HPF (0-2); Squamous Epithelial Cell Urine RARE #/LPF (NONE/RARE)
[2023-11-21 10:59] LABS: Urine Culture Indicated ALREADY ORDERED
== END 2023-11-21 09:13 | disposition home or self-care (01) ==
LOC: LAB 09:15
PROVIDERS: PCP Nurse Practitioner Family; Visit Provider Nurse Practitioner Family
DX: N39.0 Urinary tract infection, site not specified (principal)
CPT/HCPCS: 81001; 87086; 87150; 87186

== ENCOUNTER 2023-11-24 09:49 | Outpatient (OUT) | payer BC, SELFPAY ==
--- NOTE | 2023-11-24 10:08 | XR_ITS ---
The [address] [address] Patient Name: CONSTANTINO CARDOSO MRN: [id number] date: 1970 Sex: F Assigned Patient Location: [facility] Current Patient Location: Accession/Order Number: [id number] Exam Date: 11/24/2023 10:02 Report Date: 11/25/2023 07:26 At the request of: STEPHANIE YOUSSEF Procedure: XR lumbar spine 2-3V EXAMINATION: XR lumbar spine 2-3V HISTORY: Low Back Pain M54.50 COMPARISON: No relevant comparison available. FINDINGS: BONES: No significant spondylosis, scoliosis, fracture, or visible bony lesion. DISC SPACES: Mild narrowing L5-S1. PARASPINOUS: Negative. No paraspinous abnormality is seen. OTHER: Negative. XR/XR lumbar spine 2-3V IMPRESSION: 1. L5-S1 mild degenerative disc disease. Electronically authenticated by: RUSH FALCON Date: 11/25/2023 07:26
--- OUTSIDE RECORDS SUMMARY | 2023-11-24 10:09 | XMS_ITS | CCD ---
Author Organization [facility] Care Team Providers Care World Designer Name Role Phone LEONA MORTENSEN Admitting Unavailable LEONA MORTENSEN Attending Unavailable KEVIN HERRERA Primary Care Unavailable KEVIN HERRERA Referring Unavailable MD Procedure Practitioner Unavailab ORESTES Cruz Surgeon Unavailable JUDI YOUSSEF Primary Care Physician DONI Youssef Primary Care Provider DO Conenr Griffith Emergency Provider Jennie Ayon Unavailable MD Jennie Ayon Attending Provider [phone] JOHNATHAN RUDOLPH Attending Unavailibis RUDOLPH, DR JOHNATHAN Botello Consulting Unavailibis RUDOLPH, DR JOHNATHAN Botello Admitting UnavailJUDI Duran Primary Care Unavailable MIKAEL, JUDI Primary Care Unavailable GARETH Larson, DR GR Attending Unavailable GARETH Larson, DR GR Consulting Unavailable GARETH Larson, DR GR Admitting Unavailable ASHLEE APPLE Consulting Unavailable JUDI YOUSSEF Admitting Unavailable JUDI YOUSSEF Primary Care Unavailable JUDI YOUSSEF Attending Unavailable KATHRIN VANCE Admitting Unavailable MIKAEL, JUDI Primary Care Unavailable DR CASSANDRA PUENTE V Consulting Unavailable KATHRIN VANCE Attending Unavailable ISAAK Larson, DR BROWN Consulting Unavailable KATHRIN VANCE Consulting Unavailable PA, DR NORA Hairston Attending Unavailable PA, DR NORA Hairston Consulting Unavailable MIKAEL, JUDI Primary Care Unavailable PA, DR NORA Hairston Admitting Unavailable GUILLERMO ALLEN Consulting Unavailable SHAIKH Juan Luis DAVIS Admitting Unavailable MIKAEL JUDI Primary Care Unavailable DR GUILLERMO VANESSA Consulting Unavaila SHAIKH Juan Luis Grant Attending Unavailable DR RUSH FALCON Consulting Unavailable BALTAZAR OAKES Consulting Unavailable SHAIKH Juan Luis DAVIS Consulting Unavailable CASSANDRA URBINA Consulting Unavailable FAB ., BALTAZAR Admitting Unavailable FAB ., BALTAZAR Attending Unavailable IMKAEL, JUDI Primary Care Unavailable JE .VIJI Consulting Unavailable FAB ., BALTAZAR Admitting Unavailable FAB ., BALTAZAR Attending Unavailable FAB ., BALTAZAR Consulting Unavailable MIKAEL, JUDI Primary Care Unavailable CALLY LANTIGUA Consulting Unavailable STEVE .EUN Consulting Unavailabl e FAB ., BALTAZAR Admitting Unavailable FAB ., BALTAZAR Attending Unavailable MIKAEL, JUDI Primary Care Unavailable CHUNG WINN Consulting Unavailable PA, DR NORA Hairston Attending Unavailable PA, DR NORA Hairston Consulting Unavailable PA, DR NORA Hairston Admitting Unavailable MIKAEL, JUDI Primary Care Unavailable ORESTES VASQUEZ Consulting Unavailable MIKAEL, JUDI Admitting Unavailable MIKAEL, JUDI Primary Care Unavailable IFTIKHAREBER, DR RUSH Hairston Consulting Unavailable MIKAEL, JUDI [...] Unavailable MIKAEL, JUDI Primary Care Unavailable ISAAK Larson, DR BROWN Admitting Unavailable ISAAK ., DR BROWN Attending Unavailable KWAME, DR CASSANDRA Chopra Consulting Unavailable DIAB ., MARTHA Consulting Unavailable FAB ., BALTAZAR Admitting Unavailable FAB ., BALTAZAR Attending Unavailable MIKAEL, JDUI Primary Care Unavailable ARIANE RIZVI Consulting Unavailable FAB ., BALTAZAR Consulting Unavailable MIKAEL, JUDI Primary Care Unavailable FAB ., BALTAZAR Consulting Unavailable FAB ., BALTAZAR Admitting Unavailable FAB ., BALTAZAR Attending Unavailable CASSANDRA LISA Consulting Unavailable FAB ., BALTAZAR Admitting Unavailable FAB ., BALTAZAR Attending Unavailable EUN NIX Consulting Unavailabl e MIKAEL, JUDI Primary Care Unavailable MIKAEL, JUDI Admitting Unavailable ZIEBER, DR RUSH Hairston Consulting Unavailable MIKAEL, JUDI Attending Unavailable MIKAEL, JUDI Primary Care Unavailable MIKAEL, JUDI Consulting Unavailable MIKAEL, JUDI Admitting Unavailable KWAME, DR CASSANDRA Chopra Consulting Unavailable MIKAEL, JUDI Attending Unavailable MIKAEL, JUDI Primary Care Unavailable MIKAEL, JUDI Consulting Unavailable LINDA Youssef-C [facility] Primary Care Provider DO Conner Griffith Emergency Provider DO Pete Thakkar Emergency Provider [facility] Primary Care Provider [phone] ClaireRafanoemi Unavailable Renny Gan Unavailable [phone] Mikael, Judi Joan Primary Care Unavailable Gladis, Conner M Admitting Unavailable Gladis, Conner M Attending Unavailable Mikael, [facility] Primary Care Unavailable Asaad, Imad Admitting Unavailable Asaleo, Imad Attending Unavailable Renny Gan Consulting Unavailabl e Mikael, [facility] Primary Care Unavailable Deann Montalvo Attending Unavailable Alahmad, Alaa Admitting Unavailable Mikael, [facility] Primary Care Unavailable GladisErnaed M Admitting Unavailable GladisErna salinased M Attending Unavailable Mikael, [facility] Primary Care Unavailable Pete Thakkar Admitting Unavailable Pete Thakkar Attending Unavailable Samuel Estrella Attending Unavailable Monique Marquez Attending Unavailable Anai REAGAN Attending Unavailable Zabrina Patton Attending Unavailable MARQUES BRADLEY Referring Unavailable PAVLOCK, [facility] Primary Care Unavailable PAVLOCK, [facility] Primary Care Unavailable KROHMARQUES Referring Unavailable KROH, MARQUES Patel Attending Unavailable IMER CHERRY Referring Unavailable [facility] Primary Care Unavailable PAVLOCK, [facility] Primary Care Unavailable KROH, MARQUES D Referring Unavailable KAITLYN TORRES Attending Unavailable KROH, MARQUES Patel Referring Unavailable PAVLOCK, [facility] Primary Care Unavailable MELISSA MONTALVO Attending Unavailable KROH, MARQUES Patel Referring Unavailable PAVLOCK, [facility] Primary Care Unavailable SLY HEART Attending Unavailable KROHMARQUES Referring Unavailable [facility], [facility] Primary Care Unavailable BRENNEN SHAW Attending Unavailable Allergies Allergy Classification Reported Allergen(s) Allergy Type Date of Onset Reaction(s) Facility (5 sources) cyclobenzaprine; Translations: [CYCLOBENZAPRINE] Drug Allergy 04-28-20 Swelling of Lip/Tongue/Thr oat [facility] (6 sources) Penicillins Drug allergy (disorder) 09-02-20 15 Rash [facility] (20 sources) cyclobenzaprine; Translations: [cyclobenzaprine] Drug Allergy 04-28-20 18 Pharyngeal swelling (finding), Swelling [facility] (20 sources) Penicillin; Translations: [penicillin] Drug Allergy 04-28-20 18 Swelling (morphologic abnormality), Swelling [facility] (8 sources) penicillAMINE Drug Allergy rash [employer] Other (2 sources) cyclobenzaprine Drug Allergy 03-23-20 16 [facility] (1 source) traMADol Drug Allergy [facility] (1 source) traMADol Drug Allergy [facility] (1 source) cyclobenzaprine Drug Allergy 03-23-20 23 [facility] (1 source) Penicillins Drug allergy (disorder) 03-23-20 23 [facility] Medications Current Medications Medication Drug [...] day(s), # 120 cap(s), Refills(s) 11, Pharmacy: [facility]/pharmacy #[id number], 170, cm, 05/05/21 14:15:00 EDT, Height/Length Dosing, 83.1, kg, 05/05/21 14:15:00 EDT, Weight Dosing Start Date: 05/05/21 Stop Date: 04/30/22 Status: Ordered Start: 09-20-2020 take 2 capsules by m outh four times daily Bentyl 10 mg Cap 20 mg = 2 cap(s), Oral, QID, # 20 cap(s), Refills(s) 0, Pharmacy: [facility]/pharmacy #[id number], 170, cm, 09/20/20 [...] day(s), # 90 tab(s), Refills(s) 0, Pharmacy: [facility]/pharmacy #[id number], 170, cm, 01/28/22 [...] pain, # 20 tab(s), Refills(s) 0, Pharmacy: [facility]/pharmacy #[id number], 170, cm, 02/19/23 [...] day(s), # 90 cap(s), Refills(s) 1, Pharmacy: [facility]/pharmacy #[id number], 170, cm, 04/14/22 [...] Daily, # 90 cap(s), Refills(s) 3, Pharmacy: [facility]/pharmacy #[id number], 170, cm, 01/11/22 9:17:00 EDT, Height/Length Dosing, 83, kg, 01/11/22 9:17:00 EDT, Weight Dosing Start Date: 01/11/22 Status: Ordered omeprazole 40 mg Cap-DR (1 source) Start: 2 End: 2 take 1 capsule by mouth once daily omeprazole 40 mg Cap-DR 40 mg = 1 cap(s), Oral, Daily, X 90 day(s), # 90 cap(s), Refills(s) 0, Pharmacy: [facility]/pharmacy #[id number], 170, cm, 01/28/22 [...] by mouth twice daily. polyethylene glycol 3350 88900 mg powder for oral solution (1 source) [...] every six hours as needed for nausea Zofran ODT 4 mg Tab-Dis 4 mg = 1 tab(s), Oral, q6hr, PRN Nausea/Vomiting, # 12 tab(s), Refills(s) 0, Pharmacy: [facility]/pharmacy #[id number], 170, cm, 09/20/20 16:03:00 EST, Height/Length Dosing, 87.5, kg, 09/20/20 16:03:00 EST, Weight Dosing Start Date: 09/20/20 Status: Ordered Completed/Discontinued Medications Medication Drug Class(es) Dates Sig (Normalized) Sig (Original) acetaminophen 325 mg / HYDROcodone bitartrate 5 mg oral tablet (6 sources) Opioid Agonist Start: 06-21-2019 End: 02-15-2023 take 1 tablet by mouth every six hours Hydrocodone-Acetami nophen ([place]) 5-325 mg Tablet Discontinued 1 TAB PO Q6H June 21, 2019 12:00am February 15, 2023 9:46am Start: 11-12-2018 End: 01-30-2019 take 1 tablet by mouth every four to six hours Hydrocodone-Acetaminophen ([place]) 5-325 mg tablet Discontinued 1 TAB PO [...] QID, # 120 tab(s), Refills(s) 0, Pharmacy: [facility]/pharmacy #[id number], 170, cm, 07/22/22 14:33:00 EST, Height/Length Dosing, 86.6, kg, 07/22/22 14:33:00 EST, Weight Dosing Start Date: 07/22/22 Status: Ordered Start: 04-13-2018 Reglan 10 MG 1 tablet daily as needed Orally once a day for 30 days Apr, Active Start: 04-13-2018 take 1 tablet by ana every six hours Metoclopramide Hcl (Reglan) 10 [...] Discontinued 100 MG PO Twice daily 14 7 June 21, 2019 12:00am February 15, 2023 [...] 05-10-2019 Chronic Other aftercare (1 source) 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 Author Type: Anesthesiologist Type: Anesthesia Postprocedure Evaluation Filed: 08/25/2023 5:35 PM Note Text: POST ANESTHESIA EVALUATION NOTE : 1970 Procedure Summary Date: 08/25/23 Room / Location: Gastroenterology Anesthesia Start: 1444 Anesthesia Stop: 155 Procedure: EGD - THERAPEUTIC, EUS, OR TUBE INTERVENTIONS Diagnosis: Gastroparesis (OTHER) Scheduled Providers: Marques Bradley MD; Carlota Jeffrey MD; Vanessa Mcmillan APRN.FITNESS WORKER Responsible Provider: Carlota Jeffrey MD Anesthesia Type: [...] August 25, 2023 TIME: 5:35 PM CSN: [id number] [facility] ANES PRE-OPon 08-25-2023 ANES PRE-OP HNO ID: [id number] Author: Carlota Jeffrey MD Service: ? Author [...] and consent discussed: yes. Patient / Responsible Democrat agrees to proceed: yes Patient / Surrogate [...] August 25, 2023 TIME: 11:46 AM CSN: [id number] [facility] HISTORY PHYSICALon HISTORY PHYSICAL HNO ID: [id number] Author: Gavi Bourgeois MD Service: General Surgery [...] DATE: August 25, 2023 TIME: 6:57 AM [facility] NURSING PROGon 08-25-2023 NURSING PROG HNO ID: [id number] Author: Melody Walter, RN Service: Nursing Author Type: Registered Nurse [...] None Electronically Signed By: Melody Walter RN [facility] NURSING PROG HNO ID: [id number] Author: Pamela Osuna RN Service: ? Author [...] By: Pamela Navarro RN In Department: GASTROENTEROLOGY [facility] CONSTANTINO CARDOSO ([id number]) 1970 F Date Time Provider Department 07/22/23 EVELYN BLACK GENBMI During your visit today, [...] Status:Closed by EVELYN BLACK on 07/22/[address] [facility] ANES POSTPROC EVALon 023 ANES POSTPROC EVAL HNO ID: [id number] Author: Sly Heart MD Service: ? Author Type: Anesthesiologist Type: Anesthesia Postprocedure Evaluation Filed: 07/14/2023 12:26 PM Note Text: POST ANESTHESIA EVALUATION NOTE : 1970 Procedure Summary Date: 07/14/23 Room / Location: Gastroenterology Anesthesia Start: 1031 Anesthesia Stop: 1111 Procedure: EGD - THERAPEUTIC, EUS, OR TUBE INTERVENTIONS Diagnosis: Dysphagia, unspecified type Gastroparesis History of Ramiro fundoplication (Epigastric abdominal pain) Scheduled Providers: Marques Bradley MD; Amanda Bernard APRN.FITNESS WORKER; Sly Heart MD Responsible Provider: Sly Heart MD Anesthesia Type: general ASA Status: 2 [...] team. Anesthesia Observations No Documentation SIGNATURE: Sly Heart MD PATIENT NAME: Constantino Cardoso DATE: July 14, 2023 TIME: 12:26 PM CSN: [id number] [facility] ANES PRE-OPon 07-14-2023 ANES PRE-OP HNO ID: [id number] Author: Sly Heart MD Service: ? Author Type: Anesthesiologist Type: Anesthesia Preprocedure Evaluation Filed: 07/14/2023 9:19 AM Note Text: ANESTHESIOLOGY DAY OF SURGERY NOTE : 1970 Procedure Information Date/Time: 07/14/23929 Scheduled providers: Marques Bradley MD; Amanda Bernard APRN.FITNESS WORKER; Sly Heart MD Procedure: EGD - THERAPEUTIC, EUS, OR [...] and consent discussed: yes. Patient / Responsible Democrat agrees to proceed: yes Patient / Surrogate [...] within 48 hours of Surgery/Procedure. SIGNATURE: Sly Heart MD PATIENT NAME: Constantino Cardoso DATE: July 14, 2023 TIME: 9:11 AM CSN: [id number] [facility] EGD - THERAPEUTIC, EUS, OR T UBE INTERVENTIONSon 07-14-2023 [facility] HISTORY PHYSICALon HISTORY PHYSICAL HNO ID: [id number] Author: Raúl Quintero MD Service: General Surgery [...] medications for this visit. 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 NURSING PROGon 07-14-2023 NURSING PROG HNO ID: [id number] Author: Mónica Spaulding RN Service: Nursing Author Type: Registered Nurse Type: Nursing Progress Note Filed: 07/14/2023 11:21 AM Note Text: 1121: Dr. Mehrdad Heart paged : Patient Constantino Cardoso in post bed 10: Complaining of 10/10 abdominal pain (gas), mild nausea. Any further orders? Thanks! Mari Spaulding RN BSN [facility] NURSING PROG HNO ID: [id number] Author: Mónica Spaulding RN Service: Nursing Author [...] Signed By: Mónica Spaulding RN BSN [facility] NURSING PROG HNO ID: [id number] Author: Candace Jaramillo RN Service: ? Author [...] By: Candace Jaramillo RN In Department: GASTROENTEROLOGY [facility] SURGICAL PATHOLOGYon 023 ADDENDUM 1: [facility] Comment on above: Order Comment: Speci men Type: TISSUE SPECIMENOrdering Facility: [facility] Address: [address] [place] [address] Result Comment: Give n the background of chronic gastritis a Helicobacter pylori immunostain was performed on block A and is negative for Helicobacter pylori organisms. AEB 07/20/2023 Laboratory Developed Test (LDT) Disclaimer: Performance characteristics of immunohistochemical, immunofluorescent and chromogenic in-situ hybridization tests have been determined by the performing laboratory within [facility]???[facility] [place] ([facility], [facility], [facility], [facility], [facility], [facility], or [facility]) in a manner consistent with CLIA [...] at 9:30 AM Performed By: #### S ####[facility] LAB[facility] [id number] [place] [address] [place] CASE REPORT [facility] Comment on above: Order Comment: Speci men Type: TISSUE SPECIMENOrdering Facility: [facility] Address: [address] [place] [address] Result Comment: Surg [facility] Pathology Report Case: [id number] Authorizing Provider: Marques Bradley MD Collected: 07/14/2023 10:42 AM Ordering Location: Gastroenterology Received: 07/14/2023 07:34 PM Pathologist: Marilou Zacarias MD Specimen: STOMACH BIOPSY, R/O H.Pylori Performed By: #### S ####[facility] [id number] [address] OF [facility] DIAGNOSIS COMMENT Immunohistochemical stain for Helicobacter pylori is pending and will be reported as an addendum. [facility] Comment on above: Order Comment: Speci men Type: TISSUE SPECIMENOrdering Facility: [facility] Address: [address] [place] [address] Performed By: #### S ####[facility]IA [id number] [address] OF [facility] FINAL DIAGNOSIS [facility] Comment on above: Order Comment: Speci men Type: TISSUE SPECIMENOrdering Facility: [facility] Address: [address] [place] [address] Result Comment: Velma scott, biopsy: - Chronic inactive gastritis. See comment. AEB/dkclementina 07/18/2023 Performed By: #### S ####[facility] LABIA [id number] [address] [place] FINAL PERFORMING LAB Normal [facility] Comment on above: Order Comment: Speci men Type: TISSUE SPECIMENOrdering Facility: [facility] Address: [address] [place] [address] Result Comment: Diag nostic interpretation performed at [facility], [address] [address] CLIA# [id number] It Senior Analyst: Maurisio Ritchie M.D. Performed By: #### S ####[facility] LABIA [id number] [address] [place] GROSS DESCRIPTION Normal [facility] Comment on above: Order Comment: Speci men Type: TISSUE SPECIMENOrdering Facility: [facility] Address: [address] [place] [address] Result Comment: A. S TOMACH BIOPSY Received in formalin are two pieces of hager, soft tissue aggregating to 0.5 x 0.2 x 0.2 cm. Totally submitted in one cassette. Two Gross examination performed at [facility], [facility] [address] July 14, 2023 11:10 PM Performed By: #### S ####[facility] [id number] [address] OF [place] Lipase Levelon 06-06-2023 Lipase [Catalytic activity/Vol] 33 U/L Normal 13-58 [facility] Comment on above: Performed By: #### 2 [id number] ####[facility] [id number] [place] [address] [facility] 05-27-2023 CNPN Telephone (GENBMI) CONSTANTINO CARDOSO ([id number]) 1970 F Date Time Provider Department 05/27/23 EVELYN BLACK During your visit today, we recorded the following information about you: Evelyn Black, RN 05/27/2023 9:45 AM Signed BMI SPECIALTY CARE COORDINATION TELEPHONE ENCOUNTER Pt contacted today regarding testing ordered when she had a consult with Dr Kroh. Manometry was normal and her GES was severely delayed. Reviewed results and will discuss with Dr if POP is the next plan of [...] Status:Closed by EVELYN BLACK on 05/27/23 Normal [facility] GASTRIC EMPTYING SOLIDon 05-26-2023 [place] GASTRIC EMPTYING SOLID * * *Final Report* * * DATE OF EXAM: May 26 2023 11:11AM [facility] 0017 - [place] GASTRIC EMPTYING SOLID / PROCEDURE REASON: Nausea [...] RATE OF GASTRIC EMPTYING OF SOLID MEAL. Medical Policy Specialist: PSCB Transcribe Date/Time: May 26 2023 11:18A Dictated by : SILVANO WELSH MD This examination was interpreted and the report reviewed and electronically signed by: SILVANO WELSH MD on May 26 2023 11:18AM EST [id number] [facility] CNNURSEon 05-25-2023 [facility] Nurse Visit (GASTMN) CONSTANTINO CARDOSO ([id number]) 1970 F Date Time Provider Department 05/25/23 8:30 AM NURSE GI LAB 2 GASTMN During your visit today, we recorded the following information about you: Pedro Gonzalez LPN 05/25/2023 4:15 PM Signed Name: Constantino Cardoso [facility]#: [id number] Date: 05/25/2023 ESOPHAGEAL MANOMETRY TEST Indication: Nausea [...] .Pedro Gonzalez LPN Referring Provider: MARQUES BRADLEY [[id number]] Allergies As of Date: 05/25/2023 Noted Allergy Reaction FLEXERIL (CYCLOBENZAPRINE) 04/28/2018 7 - Swelling PENICILLIN 04/28/2018 7 - Swelling Date Reviewed: 05/06/2023 Reviewed by: Judy Michaels MA - Fully Assessed Reason for Visit: Procedure [88] Cmt: Manometry Esophageal Visit Diagnosis:Nausea [R11.0] Order(s):MANOMETRY ESOPHAGEAL [03488TCT] Order #: [id number] Prescriptions as of 05/25/2023 - dicyclomine (BENTYL) [...] Encounter Status:Closed by PEDRO GONZALEZ on 05/25/23 [facility] Magda 05-16-2023 CNPN Telephone (GENBMI) CONSTANTINO CARDOSO ([id number]) 1970 F Date Time Provider Department 05/16/23 EVELYN BLACK During your visit today, we recorded the following information about you: Evelyn Black RN 05/16/2023 12:10 PM Signed BMI SPECIALTY [...] Encounter Status:Closed by EVELYN BLACK on 05/16/23 [facility] CNOVon 05-06-2023 CNOV Office Visit (GENBMI ) CONSTANTINO CARDOSO ([id number]) 1970 F Date Time Provider Department 9/1/23 8:50 AM MARQUES BRADLEY [facility] During your visit today, we recorded the [...] for internal providers or letter via the [employer] for external providers. Chief Complaint: [...] Time: 8:15 AM Referring Provider: IMER CHERRY [[id number]] Allergies As of Date: 05/06/2023 Noted Allergy Reaction (more content not included)... Normal [facility] CNPNon 05-02-2023 CNPN Telephone (GENBMI) CONSTANTINO CARDOSO ([id number]) 1970 F Date Time Provider Department 05/02/23 EVELYN BLACK GENBMI During your visit today, we recorded the following information about you: Evelyn Black, RN 05/04/2023 1:55 PM Addendum BMI SPECIALTY CARE COORDINATION TELEPHONE ENCOUNTER Chief complaint AND duration dysphagia. Type of procedure: hernia repair hiatal with Dr. MORTENSEN in [place] February of 2019. Sending OP notes Nursing assessment (subjective/objective) . pain in chest area and getting worse, hard to breathe c/o nausea and oral intolerance, using miralax for BM Went to [place] ED March 2023 who told her she needed a stent in her heart..but her c/o were difficulty swallowing and sent pt home and referred her to [facility] and was admitted for almost a [...] pounds [address] Fab rosenbaum surgery in 2018 where a RYGB with HHR was recommended. Pt never returned and had HHR a year later @ OSH in [place] Recommendation: appt after records obtained, encouraged small [...] obesity (HCC) [E66.01] 04/28/2018 Encounter Status:Closed by EVELNY BLACK on 05/02/23 [facility]da 04-26-2023 CNPN Telephone (GENBMI) CONSTANTINO CARDOSO ([id number]) 1970 F Date Time Provider Department 04/26/23 [...] Encounter Status:Closed by EVELYN BLACK on 04/26/23 [facility] 04-18-2023 CNPN Telephone (GENBMI) CONSTANTINO CARDOSO ([id number]) 1970 F Date Time Provider Department 04/18/23 EVELYN BLACK GENI During your visit today, we recorded the following information about you: Evelyn Black, RN 04/18/2023 2:17 PM Signed BMI SPECIALTY CARE COORDINATION TELEPHONE ENCOUNTER Contacted pt regarding a referral from Dr Martinez's office. LVM and call back number. 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 Visit: Rigger Up - Other [2662] Prescriptions as of 04/18/2023 - ciprofloxacin HCl [...] Encounter Status:Closed by EVELYN BLACK on 04/18/23 [facility] 04-07-2023 CNPN Telephone (GASTSP) WALKERCONSTNATINO ([id number]) 1970 F Date Time Provider Department 04/07/23 GUILLERMO MARTINEZ GAST During your visit today, we recorded the following information about you: Yancy Lopez 04/07/2023 1:16 PM Signed Referral Jett Calles 04/11/2023 1:01 PM Signed Records are in scanned documents ready for review. Guillermo Martinez DO 04/13/2023 10:02 AM Signed Post surgical needs [...] Encounter Status:Closed by YANCY LOPEZ on 04/07/[address] [facility] NM gastric emptying studyon 03-31-2023 NM gastric emptying study [facility] [place] [address] Nuclear Medicine Report Signed Patient: WalkerConstantino MR#: [id number] : 1970 Acct:[id number] Age/Sex: 52 / F ADM Date: 03/26/23 Loc: Room: [address] [place] [address] Type: ADM IN Attending Dr: Deann Montalvo [...] Samuel Stone M.D.03/31/2023 10:03 AM Dictation Location: [place] [address] Transcribed By: [facility] 03/31/23 1003 Dictated By: Samuel Stone DO 03/31/23 0956 Signed By: 03/31/23 1003 [facility] Comprehensive Metabolic Pane miranda 03-29-2023 Albumin [Mass/Vol] 3.8 g/dL Normal 3.5-5.7 [facility] Comment on above: Performed By: #### C DIANN DOUGLAS #### [address] Albumin/Globulin [Mass ratio] 1.4 {ratio} [facility] Comment on above: Performed By: #### C STELLA, CMP #### [facility] [address] [place] [id number] [facility] ALP [Catalytic activity/Vol] 102 U/L Normal 34-104 [facility] Comment on above: Performed By: #### C STELLA CMP #### [place] [id number] [facility] ALT [Catalytic activity/Vol] 10 U/L Normal 7-52 [facility] Comment on above: Performed By: #### C STELLA, CMP #### [place] [address] [place] Anion gap [Moles/Vol] 10.4 mmol/L Normal 6.0-15.0 [facility] Comment on above: Performed By: #### C STELLA, CMP #### [facility] [address] AST [Catalytic activity/Vol] 14 U/L Normal 13-39 [facility] Comment on above: Performed By: #### C STELLA, CMP #### [facility] [address] Bilirubin [Mass/Vol] 0.5 mg/dL Normal 0.3-1.0 [facility] Comment on above: Performed By: #### C STELLA, CMP #### [facility] [address] Calcium [Mass/Vol] 9.0 mg/dL Normal 8.6-10.3 [facility] Comment on above: Performed By: #### C STELLA, CMP #### [facility] [address] Chloride [Moles/Vol] 103 mmol/L Normal 98-107 [facility] Comment on above: Performed By: #### C STELLA, CMP #### [facility] [address] [place] [address] [place] CO2 [Moles/Vol] 28.4 mmol/L Normal 21.0-31.0 [facility] Comment on above: Performed By: #### C STELLA, CMP #### [facility] [address] [place] [address] [place] Creatinine [Mass/Vol] 0.67 mg/dL Normal 0.60-1.20 [facility] Comment on above: Performed By: #### C STELLA, CMP #### [facility] [address] [place] [address] [place] Creatinine Clr Calc Pharmacy 106.18 Normal [facility] Comment on above: Result Comment: PERF ORMED BY: [place] [address] PATHOLOGIST GATHERING WORKER ROOSEVELT KEYES M.D. Performed By: #### C STELLA, CMP #### [facility] [address] [place] [address] [place] GFR/1.73 sq M.predicted MDRD (S/P/Bld) [Vol rate/Area] mL/min/{1.73_m2} [facility] Comment on above: Performed By: #### C STELLA, CMP #### [facility] [address] [place] [address] [place] Globulin (S) [Mass/Vol] 2.7 g/dL [facility] Comment on above: Performed By: #### C STELLA, CMP #### [facility] [address] Glucose [Mass/Vol] 96 mg/dL Normal 70-100 [facility] Comment on above: Result Comment: [facility] Glucose Reference Range is dependent on time and content of last meal. Glucose of more than 200 mg/dL in a nonstressed, ambulatory subject supports the diagnosis of Diabetes Mellitus. ADA recommended reference range Performed By: #### C STELLA, CMP #### [facility] [address] [place] [address] [place] Potassium [Moles/Vol] 3.8 mmol/L Normal 3.5-5.1 [facility] Comment on above: Performed By: #### C STELLA, CMP #### [place] [address] [place] Protein [Mass/Vol] 6.5 g/dL Normal 6.4-8.9 [facility] Comment on above: Performed By: #### C STELLA, CMP #### [facility] [address] [place] [address] [place] Sodium [Moles/Vol] 138 mmol/L Normal 136-145 [facility] Comment on above: Performed By: #### C STELLA, CMP #### [facility] [address] [place] [address] [place] Urea nitrogen [Mass/Vol] 8 mg/dL Normal 7-25 [facility] Comment on above: Performed By: #### C STELLA, CMP #### [facility] [address] [place] [address] [facility] [place] esophagus ugion 3 [place] esophagus ugi [facility] [address] [place] [address] [place] [address] Fluoroscopy Report Signed Patient: Constantino Cardoso MR#: [id number] : 1970 Acct:[id number] Age/Sex: 52 / F ADM Date: 03/26/23 Loc: Room: [address] [place] [address] Type: ADM IN Attending Dr: Deann Montalvo MD Copies to: MD Deann Blue MD Ordering Provider: Renny Gan MD Date of Service: 03/29/23 FL/FL esophagus ugi: NAUSEA DOUBLE CONTRAST UPPER GI SERIES CLINICAL HISTORY: Nausea vomiting. History of Ramiro fundoplication. COMPARISON: None TECHNIQUE: Double contrast upper GI series was performed. Cumulative Air Kerma in mGy: 305.03 mGy FINDINGS: Compliance Coordinator image demonstrates no acute findings. The esophagus [...] SUGGESTED. Impression dictated by: Tiburcio Bateman Jr., D.ONeo03/29/2023 1:23 PM Dictation Location: [place] [address] Transcribed By: [facility] 03/29/23 1323 Dictated By: Tiburcio Bateman Jr, DO 03/29/23 1317 Signed By: 03/29/23 1323 Normal [facility] Hemogram CBC Without Diffon 03-29-2023 Erythrocyte distribution width (RBC) [Ratio] 13.4 % Normal 11.9-15.3 [facility] Comment on above: Performed By: #### C BCNO, CMP #### [address] Hematocrit (Bld) [Volume fraction] 35.4 % Normal 34.0-46.4 [facility] Comment on above: Performed By: #### C BCNO, CMP #### [facility] [address] Hemoglobin (Bld) [Mass/Vol] 12.0 g/dL Normal 11.8-15.4 [facility] Comment on above: Performed By: #### C BCNO, CMP #### [address] MCH (RBC) [Entitic mass] 29.2 pg Normal 24.7-34.3 [facility] Comment on above: Performed By: #### C BCNO, CMP #### [address] MCV (RBC) [Entitic vol] 86.0 fL Normal 80-100 [facility] Comment on above: Performed By: #### C BCNO, CMP #### [address] Mean Corpuscular HGB Conc 33.9 g/dL Normal 32.0-35.0 [facility] Comment on above: Performed By: #### C BCNO, CMP #### [address] Platelet mean volume (Bld) [Entitic vol] 7.6 fL Normal 6.3-10.7 [facility] Comment on above: Result Comment: PERF ORMED BY: [place] [address] PATHOLOGIST GATHERING WORKER ROOSEVELT KEYES M.D. Performed By: #### C BCNO, CMP #### [address] Platelets (Bld) [#/Vol] 288 10*3/uL Normal 150-450 [facility] Comment on above: Performed By: #### C BCNO, CMP #### [facility] [address] [place] [id number] [facility] RBC (Bld) [#/Vol] 4.11 10*6/uL Normal 3.60-5.00 [facility] Comment on above: Performed By: #### C BCNO, CMP #### [facility] [address] [place] [id number] [facility] WBC (Bld) [#/Vol] 6.5 10*3/uL Normal 3.8-11.6 [facility] Comment on above: Performed By: #### C BCNO, CMP #### [facility] [address] XR abdomen min 2Von 03-28-20 XR abdomen min 2V [facility] [address] [place] [address] [place] [address] XRay Report Signed Patient: Constantino Cardoso MR#: [id number] : 1970 Acct:[id number] Age/Sex: 52 / F ADM Date: 03/26/23 Loc: Room: [address] [place] [address] Type: ADM IN Attending Dr: Deann Montalvo [...] Bateman Jr., D.O.03/28/2023 12:24 PM Dictation Location: [place] [address] Transcribed By: [facility] 03/28/23 1224 Dictated By: Tiburcio Bateman Jr, DO 03/28/23 1223 Signed By: 03/28/23 1224 [facility] Complete Blood Count Auto Di ffon 03-27-2023 Basophils (Bld) [#/Vol] 0.0 10*3/uL Normal 0.0-0.2 [facility] Comment on above: Result Comment: PERF ORMED BY: [place] [address] PATHOLOGIST GATHERING WORKER ROOSEVELT KEYES M.D. Performed By: #### C BC #### [address] Basophils/100 WBC (Bld) 0.5 % Normal . [facility] Comment on above: Performed By: #### C BC #### [address] Eosinophils (Bld) [#/Vol] 0.2 10*3/uL Normal 0.0-0.45 [facility] Comment on above: Performed By: #### C BC #### [address] Eosinophils/100 WBC (Bld) 4.7 % Normal . [facility] Comment on above: Performed By: #### C BC #### [address] Erythrocyte distribution width (RBC) [Ratio] 13.6 % Normal 11.9-15.3 [facility] Comment on above: Performed By: #### C BC #### [address] Hematocrit (Bld) [Volume fraction] 34.1 % Normal 34.0-46.4 [facility] Comment on above: Performed By: #### C BC #### [place] [address] [place] Hemoglobin (Bld) [Mass/Vol] 11.4 g/dL Low 11.8-15.4 [facility] Comment on above: Performed By: #### C BC #### [address] Lymphocytes (Bld) [#/Vol] 1.3 10*3/uL Normal 1.00-4.8 [facility] Comment on above: Performed By: #### C BC #### [address] Lymphocytes/100 WBC (Bld) 32.8 % Normal . [facility] Comment on above: Performed By: #### C BC #### [address] MCH (RBC) [Entitic mass] 28.9 pg Normal 24.7-34.3 [facility] Comment on above: Performed By: #### C BC #### [address] MCV (RBC) [Entitic vol] 86.0 fL Normal 80-100 [facility] Comment on above: Performed By: #### C BC #### [address] Mean Corpuscular HGB Conc 33.6 g/dL Normal 32.0-35.0 [facility] Comment on above: Performed By: #### C BC #### [address] Monocytes (Bld) [#/Vol] 0.3 10*3/uL Normal 0.0-0.8 [facility] Comment on above: Performed By: #### C BC #### [address] Monocytes/100 WBC (Bld) 7.7 % Normal . [facility] Comment on above: Performed By: #### C BC #### [address] Neutrophils (Bld) [#/Vol] 2.1 10*3/uL Normal 1.8-7.7 [facility] Comment on above: Performed By: #### C BC #### [address] Neutrophils/100 WBC (Bld) 54.3 % Normal . [facility] Comment on above: Performed By: #### C BC #### [address] NRBC% 0.1 /100{WBC} Normal 0-0.5 [facility] Comment on above: Performed By: #### C BC #### [address] Platelet mean volume (Bld) [Entitic vol] 7.8 fL Normal 6.3-10.7 [facility] Comment on above: Performed By: #### C BC #### [address] Platelets (Bld) [#/Vol] 291 10*3/uL Normal 150-450 [facility] Comment on above: Performed By: #### C BC #### [address] RBC (Bld) [#/Vol] 3.97 10*6/uL Normal 3.60-5.00 [facility] Comment on above: Performed By: #### C BC #### [address] WBC (Bld) [#/Vol] 3.9 10*3/uL Normal 3.8-11.6 [facility] Comment on above: Performed By: #### C BC #### [address] Comprehensive Metabolic Pane miranda 03-27-2023 Albumin [Mass/Vol] 3.5 g/dL Normal 3.5-5.7 [facility] Comment on above: Performed By: #### H EPATIC, CBC, BMP, LIPASE #### [address] Albumin/Globulin [Mass ratio] 1.4 {ratio} Normal [facility] Comment on above: Performed By: #### H EPATIC, CBC, BMP, LIPASE #### [address] ALP [Catalytic activity/Vol] 91 U/L Normal 34-104 [facility] Comment on above: Performed By: #### H EPATIC, CBC, BMP, LIPASE #### [address] [place] [address] [place] ALT [Catalytic activity/Vol] 10 U/L Normal 7-52 [facility] Comment on above: Performed By: #### H EPATIC, CBC, BMP, LIPASE #### [address] Anion gap [Moles/Vol] 6.9 mmol/L Normal 6.0-15.0 [facility] Comment on above: Performed By: #### H EPATIC, CBC, BMP, LIPASE #### [address] AST [Catalytic activity/Vol] 13 U/L Normal 13-39 [facility] Comment on above: Performed By: #### H EPATIC, CBC, BMP, LIPASE #### [address] Bilirubin [Mass/Vol] 0.5 mg/dL Normal 0.3-1.0 [facility] Comment on above: Performed By: #### H EPATIC, CBC, BMP, LIPASE #### [address] Calcium [Mass/Vol] 8.6 mg/dL Normal 8.6-10.3 [facility] Comment on above: Performed By: #### H EPATIC, CBC, BMP, LIPASE #### [address] Chloride [Moles/Vol] 109 mmol/L High 98-107 [facility] Comment on above: Performed By: #### H EPATIC, CBC, BMP, LIPASE #### [address] CO2 [Moles/Vol] 28.9 mmol/L Normal 21.0-31.0 [facility] Comment on above: Performed By: #### H EPATIC, CBC, BMP, LIPASE #### [address] Creatinine [Mass/Vol] 0.72 mg/dL Normal 0.60-1.20 [facility] Comment on above: Performed By: #### H EPATIC, CBC, BMP, LIPASE #### [facility] [address] Creatinine Clr Calc Pharmacy 97.02 [facility] Comment on above: Performed By: #### H EPATIC, CBC, BMP, LIPASE #### [facility] [address] [place] [address] [place] GFR/1.73 sq M.predicted MDRD (S/P/Bld) [Vol rate/Area] mL/min/{1.73_m2} [facility] Comment on above: Performed By: #### H EPATIC, CBC, BMP, LIPASE #### [address] Globulin (S) [Mass/Vol] 2.5 g/dL [facility] Comment on above: Performed By: #### H EPATIC, CBC, BMP, LIPASE #### [address] Glucose [Mass/Vol] 104 mg/dL High 70-100 [facility] Comment on above: Result Comment: [facility] Glucose Reference Range is dependent on time and content of last meal. Glucose of more than 200 mg/dL in a nonstressed, ambulatory subject supports the diagnosis of Diabetes Mellitus. ADA recommended reference range Performed By: #### H EPATIC, CBC, BMP, LIPASE #### [address] Potassium [Moles/Vol] 3.8 mmol/L Normal 3.5-5.1 [facility] Comment on above: Performed By: #### H EPATIC, CBC, BMP, LIPASE #### [address] Protein [Mass/Vol] 6.0 g/dL Low 6.4-8.9 [facility] Comment on above: Performed By: #### H EPATIC, CBC, BMP, LIPASE #### [address] Sodium [Moles/Vol] 141 mmol/L Normal 136-145 [facility] Comment on above: Performed By: #### H EPATIC, CBC, BMP, LIPASE #### [facility] [address] Urea nitrogen [Mass/Vol] 10 mg/dL Normal 7-25 [facility] Comment on above: Performed By: #### H EPATIC, CBC, BMP, LIPASE #### [facility] [address] [place] [id number] [facility] Lipaseon 03-27-2023 Lipase [Catalytic activity/Vol] 14.0 U/L Normal 11.0-82.0 [facility] Comment on above: Result Comment: PERF ORMED BY: [place] [address] PATHOLOGIST GATHERING WORKER ROOSEVELT KEYES M.D. Performed By: #### H EPATIC, CBC, BMP, LIPASE #### [address] Magnesiumon 03-27-2023 Magnesium [Mass/Vol] 1.8 mg/dL Low 1.9-2.7 [facility] Comment on above: Performed By: #### H EPATIC, CBC, BMP, LIPASE #### [address] angio abdomen pelvison CT angio abdomen pelvis [facility] Main [place] [address] [place] [address] CT Scan Report Signed Patient: Constantino Cardoso MR#: [id number] : 1970 Acct:[id number] Age/Sex: 52 / F ADM Date: 03/26/23 Loc: Room: [address] [place] [address] Type: ADM IN Attending Dr: Raf Steward [...] Nora Benites M.D.03/26/2023 9:41 AM Dictation Location: [place] [address] Transcribed By: [facility] 03/26/23 0941 Dictated By: Nora Benites II, MD 03/26/23 0935 Signed By: 03/26/23 0941 [facility] CT angio cheston 03-26-2023 CT angio chest [facility] Main [place] [address] [place] [address] CT Scan Report Signed Patient: Constantino Cardoso MR#: [id number] : 1970 Acct:[id number] Age/Sex: 52 / F ADM Date: 03/26/23 Loc: Room: [address] [place] [address] Type: ADM IN Attending Dr: Raf Steward [...] Nora Benites M.D.03/26/2023 9:34 AM Dictation Location: [place] [address] Transcribed By: [facility] 03/26/2334 Dictated By: Nora Benites II, MD 03/26/2330 Signed By: 03/26/2334 [facility] Comprehensive Metabolic Pane miranda 03-26-2023 Albumin [Mass/Vol] 3.8 g/dL Normal 3.5-5.7 [facility] Comment on above: Performed By: #### P ORS #### [address] Albumin/Globulin [Mass ratio] 1.6 {ratio} Normal [facility] Comment on above: Performed By: #### P ORS #### [facility] [address] ALP [Catalytic activity/Vol] 105 U/L High 34-104 [facility] Comment on above: Performed By: #### P ORS #### [facility] [address] ALT [Catalytic activity/Vol] 11 U/L Normal 7-52 [facility] Comment on above: Performed By: #### P ORS #### [facility] [address] Anion gap [Moles/Vol] 9.7 mmol/L Normal 6.0-15.0 [facility] Comment on above: Performed By: #### P ORS #### [facility] [address] [place] [address] AST [Catalytic activity/Vol] 14 U/L Normal 13-39 [facility] Comment on above: Performed By: #### P ORS #### [facility] [address] [place] [address] Bilirubin [Mass/Vol] 0.4 mg/dL Normal 0.3-1.0 [facility] Comment on above: Performed By: #### P ORS #### [facility] [address] [place] [address] Calcium [Mass/Vol] 8.6 mg/dL Normal 8.6-10.3 [facility] Comment on above: Performed By: #### P ORS #### [facility] [address] [place] [address] Chloride [Moles/Vol] 107 mmol/L Normal 98-107 [facility] Comment on above: Performed By: #### P ORS #### [address] CO2 [Moles/Vol] 25.3 mmol/L Normal 21.0-31.0 [facility] Comment on above: Performed By: #### P ORS #### [place] [id number] [place] Creatinine [Mass/Vol] 0.76 mg/dL Normal 0.60-1.20 [facility] Comment on above: Performed By: #### P ORS #### [address] Creatinine Clr Calc Pharmacy 92.46 [facility] Comment on above: Performed By: #### P ORS #### [address] GFR/1.73 sq M.predicted MDRD (S/P/Bld) [Vol rate/Area] mL/min/{1.73_m2} [facility] Comment on above: Performed By: #### P ORS #### [address] Globulin (S) [Mass/Vol] 2.4 g/dL [facility] Comment on above: Performed By: #### P ORS #### [address] Glucose [Mass/Vol] 122 mg/dL High 70-100 [facility] Comment on above: Result Comment: [facility] Glucose Reference Range is dependent on time and content of last meal. Glucose of more than 200 mg/dL in a nonstressed, ambulatory subject supports the diagnosis of Diabetes Mellitus. ADA recommended reference range Performed By: #### P ORS #### [address] Potassium [Moles/Vol] 4.0 mmol/L Normal 3.5-5.1 [facility] Comment on above: Performed By: #### P ORS #### [address] Protein [Mass/Vol] 6.2 g/dL Low 6.4-8.9 [facility] Comment on above: Performed By: #### P ORS #### [address] Sodium [Moles/Vol] 138 mmol/L Normal 136-145 [facility] Comment on above: Performed By: #### P ORS #### [address] Urea nitrogen [Mass/Vol] 12 mg/dL Normal 7- [facility] Comment on above: Performed By: #### P ORS #### [place] [address] [place] Drug Screen,Urineon 03-26-20 23 Amphetamine Screen,Urine Negative Normal Negative [facility] Comment on above: Performed By: #### H EPATIC, CBC, BMP, LIPASE #### [address] Barbiturate Screen,Urine Negative Normal Negative [facility] Comment on above: Performed By: #### H EPATIC, CBC, BMP, LIPASE #### [address] Benzodiazepines Screen,Urine Negative Normal Negative [facility] Comment on above: Performed By: #### H EPATIC, CBC, BMP, LIPASE #### [address] Cannabinoid Screen,Urine Negative Normal Negative [facility] Comment on above: Result Comment: Thes e are unconfirmed results and should not be used for legal purposes. Drug Cut-Off Concentration: AMPH 1000 ng/mL HAWA 200 ng/mL ELSA 200 ng/mL COCM 300 ng/mL OP 300 ng/mL PCP 25 ng/mL THC 20 ng/mL PERFORMED BY: [place] [address] PATHOLOGIST GATHERING WORKER ROOSEVELT KEYES M.D. Performed By: #### H EPATIC, CBC, BMP, LIPASE #### [address] Cocaine Screen,Urine Negative Normal Negative [facility] Comment on above: Performed By: #### H EPATIC, CBC, BMP, LIPASE #### [address] Opiate Screen,Urine Positive High Negative [facility] Comment on above: Performed By: #### H EPATIC, CBC, BMP, LIPASE #### [address] [place] [address] [facility] Phencyclidine Screen,Urine Negative Normal Negative [facility] Comment on above: Performed By: #### H EPATIC, CBC, BMP, LIPASE #### [facility] [address] [place] [id number] [facility] echo transthoracicon [facility] echo transthoracic [facility] Main [place] [address] [place] [address] Echocardiogram Signed Patient: Constantino Cardoso MR#: [id number] : 1970 Acct:[id number] Age/Sex: 52 / F ADM Date: 03/26/23 Loc: Room: [address] [place] [address] Type: ADM IN Attending Dr: Raf Steward MD Ordering Provider: Ron Fair MD Date of Service: 03/26/23 [facility] echo transthoracic: chest pain Copies to: MD Holly Lieberman MD, [facility] BSA: 1.9 m2 BP: 155/86 mmHg [...] 0909 Signed By: Holly Castro MD, [facility] 03/26/23 1148 Normal [facility] Hepatic Panelon 03-26-2023 Bilirubin,Indirect 0.3 mg/dL Normal [facility] Comment on above: Performed By: #### P ORS #### [facility] [address] Bilirubin.indirect [Mass/Vol] 0.10 mg/dL Normal 0.03-0.18 [facility] Comment on above: Performed By: #### P ORS #### [address] Lactic Acidon 03-26-2023 Lactate [Moles/Vol] 0.5 mmol/L Normal 0.5-2.2 [facility] Comment on above: Result Comment: PERF ORMED BY: [place] [address] PATHOLOGIST GATHERING WORKER ROOSEVELT KEYES M.D. Performed By: #### L ACTIC, HEPATIC, LIPASE, CMP, HS TROP, MG #### [address] Lipaseon 03-26-2023 Lipase [Catalytic activity/Vol] 8.0 U/L Low 11.0-82.0 [facility] Comment on above: Result Comment: PERF ORMED BY: [place] [address] PATHOLOGIST GATHERING WORKER ROOSEVELT KEYES M.D. Performed By: #### P ORS #### [facility] [address] [place] [address] Magnesiumon 03-26-2023 Magnesium [Mass/Vol] 1.8 mg/dL Low 1.9-2.7 [facility] Comment on above: Performed By: #### P ORS #### [place] [address] [place] Porphyrins,Stoolon 3 Porphyrins,Stool Normal [facility] Comment on above: Result Comment: See report. Scanned copy available in EMR. PERFORMED BY: [place] [address] PATHOLOGIST GATHERING WORKER ROOSEVELT KEYES M.D. Performed By: #### P ORS #### [address] Troponin I High Sensitivityo n 03-26-2023 Troponin I High Sensitivity 13.8 pg/mL Normal 0.0-15.0 [facility] Comment on above: Result Comment: PERF ORMED BY: [place] [address] PATHOLOGIST GATHERING WORKER ROOSEVELT KEYES M.D. Performed By: #### H EPATIC, CBC, BMP, LIPASE #### [address] Troponin I High Sensitivity 14.1 pg/mL Normal 0.0-15.0 [facility] Comment on above: Result Comment: PERF ORMED BY: [place] [address] PATHOLOGIST GATHERING WORKER ROOSEVELT KEYES M.D. Performed By: #### P ORS #### [address] Alanine aminotransferase [En zymatic activity/volume] in Serum or PlasmaOrdered By: Pete Thakkar on 03-23-2023 ALT [Catalytic activity/Vol] 11 U/L 7-52 [facility] Albumin [Mass/volume] in Ser um or Plasma by Bromocresol green (BCG) dye binding methoOrdered By: Pete Thakkar on 03-23-2023 Albumin BCG dye [Mass/Vol] 4.1 g/dL 3.5-5.7 [facility] Alkaline phosphatase [Enzyma tic activity/volume] in Serum or PlasmaOrdered By: Pete Thakkar on 03-23-2023 ALP [Catalytic activity/Vol] 115 U/L 34-104 [facility] Aspartate aminotransferase [ Enzymatic activity/volume] in Serum or PlasmaOrdered By: Pete Thakkar on 03-23-2023 AST [Catalytic activity/Vol] 15 U/L 13-39 [facility] Automated erythrocytes count in urine sediment (number/area)Ordered By: Pete Thakkar on 03-23-2023 RBC Auto (Urine sed) [#/Area] 0-1 [HPF] 0-4 [facility] Automated leukocytes count i n urine sediment (number/area)Ordered By: Pete Thakkar on 03-23-2023 WBC Auto (Urine sed) [#/Area] 0-1 [HPF] 0-4 [facility] Basic Metabolic Panelon 03-05 Anion gap [Moles/Vol] 10.1 mmol/L Normal 6.0-15.0 [facility] Comment on above: Performed By: #### H EPATIC, CBC, BMP, LIPASE #### [facility] [address] [place] [address] [place] Calcium [Mass/Vol] 9.0 mg/dL Normal 8.6-10.3 [facility] Comment on above: Performed By: #### H EPATIC, CBC, BMP, LIPASE #### [facility] [address] [place] [address] [place] Chloride [Moles/Vol] 111 mmol/L High 98-107 [facility] Comment on above: Performed By: #### H EPATIC, CBC, BMP, LIPASE #### [facility] [address] [place] [id number] [place] CO2 [Moles/Vol] 24.5 mmol/L Normal 21.0-31.0 [facility] Comment on above: Performed By: #### H EPATIC, CBC, BMP, LIPASE #### [facility] [address] [place] [id number] [place] Creatinine [Mass/Vol] 0.72 mg/dL Normal 0.60-1.20 [facility] Comment on above: Performed By: #### H EPATIC, CBC, BMP, LIPASE #### [facility] [address] [place] [address] [place] Creatinine Clr Calc Pharmacy 105.27 [facility] Comment on above: Performed By: #### H EPATIC, CBC, BMP, LIPASE #### [address] GFR/1.73 sq M.predicted MDRD (S/P/Bld) [Vol rate/Area] mL/min/{1.73_m2} Normal [facility] Comment on above: Performed By: #### H EPATIC, CBC, BMP, LIPASE #### [address] Glucose [Mass/Vol] 79 mg/dL Normal 70-100 [facility] Comment on above: Result Comment: [facility] Glucose Reference Range is dependent on time and content of last meal. Glucose of more than 200 mg/dL in a nonstressed, ambulatory subject supports the diagnosis of Diabetes Mellitus. ADA recommended reference range Performed By: #### H EPATIC, CBC, BMP, LIPASE #### [address] Potassium [Moles/Vol] 3.6 mmol/L Normal 3.5-5.1 [facility] Comment on above: Performed By: #### H EPATIC, CBC, BMP, LIPASE #### [address] Sodium [Moles/Vol] 142 mmol/L Normal 136-145 [facility] Comment on above: Performed By: #### H EPATIC, CBC, BMP, LIPASE #### [address] Urea nitrogen [Mass/Vol] 24 mg/dL Normal 7-25 [facility] Comment on above: Performed By: #### H EPATIC, CBC, BMP, LIPASE #### [place] [address] [place] Basophils Auto (Bld) [#/Vol] Ordered By: Pete Thakkar on 03-23-2023 Basophils (Bld) [#/Vol] 0.1 10*3/uL 0.0-0.2 [facility] Basophils/100 WBC Auto (Bld) Ordered By: Pete Thakkar on 03-23-2023 Basophils/100 WBC (Bld) 1.0 % . [facility] Bilirubin Test strip Ql (U)O rdered By: Pete Thakkar on 03-23-2023 Bilirubin Ql (U) Negative Negative [facility] Bilirubin.direct [Mass/volum e] in Serum or PlasmaOrdered By: Pete Thakkar on 03-23-2023 Bilirubin.direct [Mass/Vol] 0.10 mg/dL 0.03-0.18 [facility] Bilirubin.total [Mass/volume ] in Serum or PlasmaOrdered By: Pete Thakkar on 03-23-2023 Bilirubin [Mass/Vol] 0.3 mg/dL 0.3-1.[address] [facility] [address] abdomen pelvis w conon CT abdomen pelvis w con [facility] [place] [address] CT Scan Report Signed Patient: Constantino Cardoso MR#: [id number] : 1970 Acct:[id number] Age/Sex: 52 / F ADM Date: 03/23/23 Loc: ER Room: Type: [facility] ER Attending Dr: Copies to: Pete Thakkar [...] Columba Domínguez M.D.03/23/2023 7:47 AM Dictation Location: [place] [address] Transcribed By: [facility] 03/23/2347 Dictated By: Columba Domínguez MD 03/23/23 0742 Signed By: 03/23/2347 Normal [facility] Calcium [Mass/volume] in Ser um or PlasmaOrdered By: Pete Thakkar on 03-23-2023 Calcium [Mass/Vol] 9.0 mg/dL 8.6-10.3 [facility] Carbon dioxide, total [Moles /volume] in Serum or PlasmaOrdered By: Pete Thakkar on 03-23-2023 CO2 [Moles/Vol] 24.5 mmol/L 21.0-31.0 [facility] Chloride [Moles/volume] in S cristine or PlasmaOrdered By: Pete Thakkar on 03-23-2023 Chloride [Moles/Vol] 111 mmol/L 98-107 [facility] Color Auto (U)Ordered By: Shoaib Thakkar on 03-23-2023 Color (U) Yellow Yellow [facility] Complete Blood Count Auto Di ffon 03-23-2023 Basophils (Bld) [#/Vol] 0.1 10*3/uL Normal 0.0-0.2 [facility] Comment on above: Result Comment: PERF ORMED BY: [facility] [address] [address] PATHOLOGIST GATHERING WORKER ROOSEVELT KEYES M.D. Performed By: #### H EPATIC, CBC, BMP, LIPASE #### [address] Basophils/100 WBC (Bld) 1.0 % Normal . [facility] Comment on above: Performed By: #### H EPATIC, CBC, BMP, LIPASE #### [address] Eosinophils (Bld) [#/Vol] 0.3 10*3/uL Normal 0.0-0.45 [facility] Comment on above: Performed By: #### H EPATIC, CBC, BMP, LIPASE #### [address] Eosinophils/100 WBC (Bld) 5.0 % Normal . [facility] Comment on above: Performed By: #### H EPATIC, CBC, BMP, LIPASE #### [address] Erythrocyte distribution width (RBC) [Ratio] 13.6 % Normal 11.9-15.3 [facility] Comment on above: Performed By: #### H EPATIC, CBC, BMP, LIPASE #### [address] Hematocrit (Bld) [Volume fraction] 35.7 % Normal 34.0-46.4 [facility] Comment on above: Performed By: #### H EPATIC, CBC, BMP, LIPASE #### [address] Hemoglobin (Bld) [Mass/Vol] 12.0 g/dL Normal 11.8-15.4 [facility] Comment on above: Performed By: #### H EPATIC, CBC, BMP, LIPASE #### [address] Lymphocytes (Bld) [#/Vol] 2.3 10*3/uL Normal 1.00-4.8 [facility] Comment on above: Performed By: #### H EPATIC, CBC, BMP, LIPASE #### [address] Lymphocytes/100 WBC (Bld) 36.1 % Normal . [facility] Comment on above: Performed By: #### H EPATIC, CBC, BMP, LIPASE #### [address] MCH (RBC) [Entitic mass] 29.2 pg Normal 24.7-34.3 [facility] Comment on above: Performed By: #### H EPATIC, CBC, BMP, LIPASE #### [address] MCV (RBC) [Entitic vol] 86.7 fL Normal 80-100 [facility] Comment on above: Performed By: #### H EPATIC, CBC, BMP, LIPASE #### [address] Mean Corpuscular HGB Conc 33.7 g/dL Normal 32.0-35.0 [facility] Comment on above: Performed By: #### H EPATIC, CBC, BMP, LIPASE #### [address] Monocytes (Bld) [#/Vol] 0.5 10*3/uL Normal 0.0-0.8 [facility] Comment on above: Performed By: #### H EPATIC, CBC, BMP, LIPASE #### [address] Monocytes/100 WBC (Bld) 16.44 % Normal 0.00-20.00 [facility] Comment on above: Performed By: #### H EPATIC, CBC, BMP, LIPASE #### [address] Monocytes/100 WBC (Bld) 7.7 % Normal . [facility] Comment on above: Performed By: #### H EPATIC, CBC, BMP, LIPASE #### [address] Neutrophils (Bld) [#/Vol] 3.2 10*3/uL Normal 1.8-7.7 [facility] Comment on above: Performed By: #### H EPATIC, CBC, BMP, LIPASE #### [address] Neutrophils/100 WBC (Bld) 50.2 % Normal . [facility] Comment on above: Performed By: #### H EPATIC, CBC, BMP, LIPASE #### [address] NRBC% 0.1 /100{WBC} Normal 0-0.5 [facility] Comment on above: Performed By: #### H EPATIC, CBC, BMP, LIPASE #### [address] Platelet mean volume (Bld) [Entitic vol] 7.6 fL Normal 6.3-10.7 [facility] Comment on above: Performed By: #### H EPATIC, CBC, BMP, LIPASE #### [address] Platelets (Bld) [#/Vol] 357 10*3/uL Normal 150-450 [facility] Comment on above: Performed By: #### H EPATIC, CBC, BMP, LIPASE #### [address] RBC (Bld) [#/Vol] 4.12 10*6/uL Normal 3.60-5.00 [facility] Comment on above: Performed By: #### H EPATIC, CBC, BMP, LIPASE #### [address] WBC (Bld) [#/Vol] 6.3 10*3/uL Normal 3.8-11.6 [facility] Comment on above: Performed By: #### H EPATIC, CBC, BMP, LIPASE #### [address] Creatinine [Mass/volume] in Serum or PlasmaOrdered By: Pete Thakkar on 03-23-2023 Creatinine [Mass/Vol] 0.72 mg/dL 0.60-1.20 [facility] Dipstick and Microscopicon 0 03-23-2023 Appearance (U) Clear Normal Clear [facility] Comment on above: Order Comment: Name Collection Type:: Clean-Voided Midstream Performed By: #### P ORS #### [facility] [address] [place] [address] [place] Bacteria,Urine 1+ High None Seen [facility] Comment on above: Order Comment: Name Collection Type:: Clean-Voided Midstream Performed By: #### P ORS #### [facility] [address] [place] [address] [place] Bilirubin,Urine Negative Normal Negative [facility] Comment on above: Order Comment: Name Collection Type:: Clean-Voided Midstream Performed By: #### P ORS #### [facility] [address] [place] [address] [place] Color (U) Yellow Normal Yellow [facility] Comment on above: Order Comment: Name Collection Type:: Clean-Voided Midstream Performed By: #### P ORS #### [facility] [address] [place] [address] Glucose Ql (U) Normal Normal Normal [facility] Comment on above: Order Comment: Name Collection Type:: Clean-Voided Midstream Performed By: #### P ORS #### [facility] [address] [place] [address] [place] Hyaline Casts,Urine None Seen Normal 0-8 [facility] Comment on above: Order Comment: Name Collection Type:: Clean-Voided Midstream Result Comment: PERF ORMED BY: [place] [address] PATHOLOGIST GATHERING WORKER ROOSEVELT KEYES M.D. Performed By: #### P ORS #### [facility] [address] [place] [address] [place] Ketones Ql (U) Negative Normal Negative [facility] Comment on above: Order Comment: Name Collection Type:: Clean-Voided Midstream Performed By: #### P ORS #### [facility] [address] [place] [address] [place] Leukocyte esterase Test strip Ql (U) Negative Normal Negative [facility] Comment on above: Order Comment: Name Collection Type:: Clean-Voided Midstream Performed By: #### P ORS #### [facility] [address] [place] [address] [place] Nitrite,Urine Negative Normal Negative [facility] Comment on above: Order Comment: Name Collection Type:: Clean-Voided Midstream Performed By: #### P ORS #### [place] [address] [place] Occult Blood,Urine Trace High Negative [facility] Comment on above: Order Comment: Name Collection Type:: Clean-Voided Midstream Result Comment: PERF ORMED BY: [place] [address] PATHOLOGIST GATHERING WORKER ROOSEVELT KEYES M.D. Performed By: #### P ORS #### [address] pH (U) 5.0 [pH] Normal 5.0-9.0 [facility] Comment on above: Order Comment: Name Collection Type:: Clean-Voided Midstream Performed By: #### P ORS #### [place] [address] [place] Protein,Urine Negative Normal Negative [facility] Comment on above: Order Comment: Name Collection Type:: Clean-Voided Midstream Performed By: #### P ORS #### [facility] [address] [place] [address] [place] RBC LM.HPF (Urine sed) [#/Area] 0 /[HPF] Normal 0-4 [facility] Comment on above: Order Comment: Name Collection Type:: Clean-Voided Midstream Performed By: #### P ORS #### [facility] [address] [place] [address] [place] Specificy [place],Urine 1.048 High 1.001-1.030 [facility] Comment on above: Order Comment: Name Collection Type:: Clean-Voided Midstream Performed By: #### P ORS #### [place] [address] [place] Squamous Epithelial Cell,Urine None Seen Normal 0-2 [facility] Comment on above: Order Comment: Name Collection Type:: Clean-Voided Midstream Performed By: #### P ORS #### [facility] [address] Urobilinogen,Urine Normal Normal Normal [facility] Comment on above: Order Comment: Name Collection Type:: Clean-Voided Midstream Performed By: #### P ORS #### [facility] [address] WBC LM.HPF (Urine sed) [#/Area] 0 /[HPF] Normal 0-4 [facility] Comment on above: Order Comment: Name Collection Type:: Clean-Voided Midstream Performed By: #### P ORS #### [facility] [address] Eosinophils Auto (Bld) [#/Vo l]Ordered By: Pete Thakkar on 03-23-2023 Eosinophils (Bld) [#/Vol] 0.3 10*3/uL 0.0-0.45 [facility] Eosinophils/100 WBC Auto (Bl d)Ordered By: Pete Thakkar on 03-23-2023 Eosinophils/100 WBC (Bld) 5.0 % . [facility] Erythrocyte distribution wid th Auto (RBC) [Ratio]Ordered By: Pete Thakkar on 03-23-2023 Erythrocyte distribution width (RBC) [Ratio] 13.6 % 11.9-15.3 [facility] Globulin Calc (S) [Mass/Vol] Ordered By: Pete Thakkar on 03-23-2023 Globulin (S) [Mass/Vol] 2.9 g/dL [facility] Glucose [Mass/volume] in Ser um or PlasmaOrdered By: Pete Thakkar on 03-23-2023 Glucose [Mass/Vol] 79 mg/dL 70-100 [facility] Comment on above: ADA recommended refe rence rangeRandom Glucose Reference Range is dependent on time and content of last meal. Glucose of more than 200 mg/dL in a nonstressed, ambulatory subject supports the diagnosis of Diabetes Mellitus. Hematocrit Auto (Bld) [Volum e fraction]Ordered By: Pete Thakkar on 03-23-2023 Hematocrit (Bld) [Volume fraction] 35.7 % 34.0-46.4 [facility] Hemoglobin [Mass/volume] in BloodOrdered By: Pete Thakkar on 03-23-2023 Hemoglobin (Bld) [Mass/Vol] 12.0 g/dL 11.8-15.4 [facility] Hepatic Panelon 03-23-2023 Albumin [Mass/Vol] 4.1 g/dL Normal 3.5-5.7 [facility] Comment on above: Performed By: #### H EPATIC, CBC, BMP, LIPASE #### [facility] [address] Albumin/Globulin [Mass ratio] 1.4 {ratio} Normal [facility] Comment on above: Performed By: #### H EPATIC, CBC, BMP, LIPASE #### [facility] [address] [place] [address] ALP [Catalytic activity/Vol] 115 U/L High 34-104 [facility] Comment on above: Performed By: #### H EPATIC, CBC, BMP, LIPASE #### [facility] [address] [place] [address] ALT [Catalytic activity/Vol] 11 U/L Normal 7-52 [facility] Comment on above: Performed By: #### H EPATIC, CBC, BMP, LIPASE #### [facility] [address] [place] [address] AST [Catalytic activity/Vol] 15 U/L Normal 13-39 [facility] Comment on above: Performed By: #### H EPATIC, CBC, BMP, LIPASE #### [facility] [address] [place] [address] Bilirubin [Mass/Vol] 0.3 mg/dL Normal 0.3-1.0 [facility] Comment on above: Performed By: #### H EPATIC, CBC, BMP, LIPASE #### [facility] [address] [place] [address] [place] Bilirubin,Indirect 0.2 mg/dL Normal [facility] Comment on above: Performed By: #### H EPATIC, CBC, BMP, LIPASE #### [facility] [address] [place] [address] [place] Bilirubin.indirect [Mass/Vol] 0.10 mg/dL Normal 0.03-0.18 [facility] Comment on above: Performed By: #### H EPATIC, CBC, BMP, LIPASE #### [facility] [address] Globulin (S) [Mass/Vol] 2.9 g/dL Normal [facility] Comment on above: Performed By: #### H EPATIC, CBC, BMP, LIPASE #### [facility] [address] Protein [Mass/Vol] 7.0 g/dL Normal 6.4-8.9 [facility] Comment on above: Performed By: #### H EPATIC, CBC, BMP, LIPASE #### [address] Ketones Auto test strip (U) [Mass/Vol]Ordered By: Pete Thakkar on 03-23-2023 Ketones (U) [Mass/Vol] Negative Negative [facility] Laboratory - UrinalysisOrder ed By: Pete Thakkar on 03-23-2023 Hyaline casts LM Ql (Urine sed) None seen [LPF] 0-8 [facility] Leukocytes [#/volume] correc jun for nucleated erythrocytes in Blood by Automated counOrdered By: Pete Thakkar on 03-23-2023 WBC corrected for nucl RBC Auto (Bld) [#/Vol] 6.3 10*3/uL 3.8-11.6 [facility] Lipaseon 03-23-2023 Lipase [Catalytic activity/Vol] 32.0 U/L Normal 11.0-82.0 [facility] Comment on above: Result Comment: PERF ORMED BY: [address] [place] [address] PATHOLOGIST GATHERING WORKER ROOSEVELT KEYES M.D. Performed By: #### H EPATIC, CBC, BMP, LIPASE #### [facility] [address] [place] [address] Lipase [Enzymatic activity/v olume] in Serum or PlasmaOrdered By: Pete Thakkar on 03-23-2023 Lipase [Catalytic activity/Vol] 32.0 U/L 11.0-82.0 [facility] Lymphocytes Auto (Bld) [#/Vo l]Ordered By: Pete Thakkar on 03-23-2023 Lymphocytes (Bld) [#/Vol] 2.3 10*3/uL 1.00-4.8 [facility] Lymphocytes/100 WBC Auto (Bl d)Ordered By: Pete Thakkar on 03-23-2023 Lymphocytes/100 WBC (Bld) 36.1 % . [facility] MCH Auto (RBC) [Entitic mass ]Ordered By: Pete Thakkar on 03-23-2023 MCH (RBC) [Entitic mass] 29.2 pg 24.7-34.3 [facility] MCHC Auto (RBC) [Mass/Vol]Or dered By: Pete Thakkar on 03-23-2023 MCHC (RBC) [Mass/Vol] 33.7 g/dL 32.0-35.0 [facility] MCV Auto (RBC) [Entitic vol] Ordered By: Pete Thakkar on 03-23-2023 MCV (RBC) [Entitic vol] 86.7 fL 80-100 [facility] Monocyte distribution width [Entitic volume] in Blood by AutomatedOrdered By: Pete Thakkar on 03-23-2023 Monocyte distribution width Auto (Bld) [Entitic vol] 16.44 % 0.00-20.00 [facility] Monocytes Auto (Bld) [#/Vol] Ordered By: Pete Thakkar on 03-23-2023 Monocytes (Bld) [#/Vol] 0.5 10*3/uL 0.0-0.8 [facility] Monocytes/100 WBC Auto (Bld) Ordered By: Pete Thakkar on 03-23-2023 Monocytes/100 WBC (Bld) 7.7 % . [facility] Neutrophils Auto (Bld) [#/Vo l]Ordered By: Pete Thakkar on 03-23-2023 Neutrophils (Bld) [#/Vol] 3.2 10*3/uL 1.8-7.7 [facility] Neutrophils/100 WBC Auto (Bl d)Ordered By: Pete Thakkar on 03-23-2023 Neutrophils/100 WBC (Bld) 50.2 % . [facility] Nitrite Test strip Ql (U)Ord ered By: Pete Thakkar on 03-23-2023 Nitrite Ql (U) Negative Negative [facility] No Panel InformationOrdered By: Pete Thakkar on 03-23-2023 Estimated GFR (CKD-EPI) > 60.0 mL/Min [facility] Creatinine Clearance (Chem 105.27 [facility] Nucleated erythrocytes [Pres ence] in Blood by Automated countOrdered By: Pete Thakkar on 03-23-2023 Nucleated RBC Auto Ql (Bld) 0.1 /100{WBC} 0-0.5 [facility] Platelet mean volume Auto (B ld) [Entitic vol]Ordered By: Pete Thakkar on 03-23-2023 Platelet mean volume (Bld) [Entitic vol] 7.6 fL 6.3-10.7 [facility] Platelets Auto (Bld) [#/Vol] Ordered By: Pete Thakkar on 03-23-2023 Platelets (Bld) [#/Vol] 357 10*3/uL 150-450 [facility] Potassium [Moles/volume] in Serum or PlasmaOrdered By: Pete Thakkar on 03-23-2023 Potassium [Moles/Vol] 3.6 mmol/L 3.5-5.1 [facility] Protein Auto test strip (U) [Mass/Vol]Ordered By: Pete Thakkar on 03-23-2023 Protein (U) [Mass/Vol] Negative Negative [facility] Protein [Mass/volume] in Ser um or PlasmaOrdered By: Pete Thakkar on 03-23-2023 Protein [Mass/Vol] 7.0 g/dL 6.4-8.9 [facility] RBC Auto (Bld) [#/Vol]Ordere d By: Pete Thakkar on 03-23-2023 RBC (Bld) [#/Vol] 4.12 10*6/uL 3.60-5.00 [facility] Serum or plasma albumin/glob ulin mass ratioOrdered By: ePte Thakkar on 03-23-2023 Albumin/Globulin [Mass ratio] 1.4 {ratio} [facility] Serum or plasma anion gap de terminationOrdered By: Pete Thakkar on 03-23-2023 Anion gap [Moles/Vol] 10.1 mmol/L 6.0-15.0 [facility] Serum or plasma non-glucuron idated bilirubin measurement (mass/volume)Ordered By: Pete Thakkar on 03-23-2023 Bilirubin.indirect [Mass/Vol] 0.2 mg/dL [facility] Sodium [Moles/volume] in Ser um or PlasmaOrdered By: Pete Thakkar on 03-23-2023 Sodium [Moles/Vol] 142 mmol/L 136-145 [facility] Specific gravity Auto test s trip (U) [Rel density]Ordered By: Pete Thakkar on 03-23-2023 Specific gravity (U) [Rel density] 1.048 1.001-1.030 [facility] Squamous epithelial cells de tection in urine sediment by light microscopyOrdered By: Peet Thakkar on 03-23-2023 Epithelial cells.squamous LM Ql (Urine sed) None seen [HPF] 0-2 [facility] Troponin I High Sensitivityo n 03-23-2023 Troponin I High Sensitivity 12.2 pg/mL Normal 0.0-15.0 [facility] Comment on above: Result Comment: PERF ORMED BY: [place] [address] PATHOLOGIST GATHERING WORKER ROOSEVELT KEYES M.D. Performed By: #### H S TROP #### [address] Troponin I.cardiac [Mass/vol ume] in Serum or Plasma by Detection limit <= 0.01 ng/Ordered By: Pete Thakkar on 03-23-2023 Troponin I.cardiac DL <= 0.01 ng/mL [Mass/Vol] 12.2 pg/mL 0.0-15.0 [facility] Urea nitrogen [Mass/volume] in Serum or PlasmaOrdered By: Pete Thakkar on 03-23-2023 Urea nitrogen [Mass/Vol] 24 mg/dL 7-25 [facility] Urine bacteria detection by automated methodOrdered By: Pete Thakkar on 03-23-2023 Bacteria Auto Ql (U) 1+ None Seen [facility] Urine clarity by refractomet ry automatedOrdered By: Pete Thakkar on 03-23-2023 Clarity Refractometry automated (U) Clear Clear [facility] Urine glucose measurement by automated test strip (mass/volume)Ordered By: Pete Thakkar on 03-23-2023 Glucose Auto test strip (U) [Mass/Vol] Normal mg/dL Normal [facility] Urine hemoglobin detection b y automated test stripOrdered By: Pete Thakkar on 03-23-2023 Hemoglobin Auto test strip Ql (U) Trace Negative [facility] Urine leukocyte esterase det ection by automated test stripOrdered By: Pete Thakkar on 03-23-2023 Leukocyte esterase Auto test strip Ql (U) Negative Negative [facility] Urobilinogen Auto test strip (U) [Mass/Vol]Ordered By: Pete Thakkar on 03-23-2023 Urobilinogen (U) [Mass/Vol] Normal mg/dL Normal [facility] WBC Auto (Bld) [#/Vol]Ordere d By: Pete Thakkar on 03-23-2023 WBC (Bld) [#/Vol] 6.3 10*3/uL 3.8-11.6 [facility] pH Auto test strip (U)Ordere d By: Pete Thakkar on 03-23-2023 pH (U) 5.0 [pH] 5.0-9.0 [facility] Discharge Instructionson Discharge Instructions [id number]#[id number]:127 [facility] Comment on above: Other Comment: wrong folder Prescriptions/Work Noteson 0 03-03-2023 Prescriptions/Work Notes [id number]#[id number]:127 [facility] Consent for Treatmenton 02-03 Consent for Treatment [id number]#1.00CD:127 [facility] Discharge Instructionson Discharge Instructions [id number]#[id number]:127 Normal [facility] ED Clinical Summaryon 2022 ED Clinical Summary (Inserted Image. Kristin ble to display) [address] [address] ED Clinical Summary Person Information Name: CONSTANTINO CARDOSO/NewKarolyn Age: 52 Years : 1970 Sex: Female Language: Israeli PCP: JUDI YOUSSEF CNP Marital Status: Phone: [phone] MRN: Visit Id: Visit Reason: Wrist pain-swelling; [...] 02/19/2023 01:41:18 02/19/2023 01:41:18 ADDRESS: [address] [facility] [id number] PHYS DOC NOTES: MEDICAL INFORMATION: Prescriptions Given: New Medications [id number], [address] [place], [place] [id number], [phone] naproxen (Naprosyn 500 mg Tab) 1 Tablets [...] With: Address: When: JUDI YOUSSEF [address] [facility] [place] [phone] Business (1) In 3 days 02/22/2023 Comments: Take the pain medication as prescribed as needed for pain. Please follow-up with your primary care doctor in the next 2 to 3 days for further evaluation management. Please return to the ED for any new or worsening symptoms or DIAGNOSIS: Right wrist sprain Normal [facility] ED Note-Physicianon 02-20-20 ED Note-Physician Basic Information Time Seen: kaye Franklinwilliam Ibrahim 02/19/2023 00:51 Chief Complaint states fell yesterday injuring right wrist. was seen at [facility]. splint in place. states pain radiating up the arm. taking motrin and tylenol History of Present Illness Patient is a 52-year-old female with past medical history of hypertension gastroparesis presenting to the ED for evaluation of right arm pain. Patient had a fall yesterday was seen at [place] had x-rays and was told it was [...] and Complexity of Problems Differential Diagnosis: [] [facility] Data External documents reviewed: [] [...] and elbow are obtained. Patient is given [place] in the ED for pain. X-rays do [...] pain, # 20 tab(s), Refills(s) 0, Pharmacy: [id number], 170, cm, 02/19/23 0:56:00 EDT, Height/Length Dosing, 90.2, kg, 02/19/23 0:56:00 EDT, Weight Dosing XR Elbow 3+ Views Right XR Wrist 3+ Views Right Medications Administered Given [place] 5/325 Tab, 1 tab(s), Oral Disposition Plan Discharge Prescription List Prescriptions Naprosyn 500 mg Tab, 500 mg= 1 tab(s), Oral, BID, PRN Follow-up With When Contact Information JUDI YOUSSEF In 3 days 02/22/2023 EDT [address] [place] [address]- [phone] Business (1) Additional Instructions: Take the pain [...] (03/02/2019), Cholecystectomy, Hernia repair, Hysterectomy. Medications Inpatient [place] 5/325 Tab, 1 tab(s), Oral, Once Home albuterol HFA 90 mcg/inh MDI, 2 pu (more content not included)... Normal [facility] Comment on above: Result Comment: Elec tronically [...] safe for you. General instructions ? Take pkbo-bgy-knwmqmc and prescription medicines only as told by [...] it gets (more content not included)... Normal [facility] ED Patient Summaryon 023 ED Patient Summary (Inserted Image. Kristin ble to display) [address] [address] Patient Discharge Instructions Person Information Name: CONSTANTINO CARDOSO Age: 52 Years Arrival Date: 02/19/2023 00:48:45 Discharge Diagnosis: Right wrist sprain Primary Care Physician: JUDI YOUSSEF CNP Provider Information Primary Provider: Zabrina Patton DO Advanced Strategic Buyer:None The exam and treatment you received in the Emergency Department were for an urgent problem and are not intended as complete care. It is important that you follow up with a doctor, nurse practitioner, or physician?s legal administrative assistant for ongoing care. If your symptoms [...] With: Address: When: JUDI YOUSSEF [address] [place] [address] [phone] Business (1) In 3 days 02/22/2023 Comments: [...] opioids can be used to help relieve imxtxjsw-io-pczekw pain and are often prescribed following a [...] the ris (more content not included)... Normal [facility] XR Elbow 3+ Views Righton XR Elbow [...] mGy = na DAP = na Normal [facility] XR Wrist 3+ Views Righton XR Wrist [...] Patton FINAL REPORT Dictated: 02/19/2023 7:45 am Arabella DO, Orestes J Signed (Electronic Signature): 02/19/2023 7:45 am Signed by: Orestes Bell DO Transcribed by: REZA Technologist: FERNANDO Technical Comments Radiation Dose: Ka,r in mGy = na DAP = na Normal [facility] Activated partial thrombopla stin time (aPTT) in platelet poor plasma by coagulation aOrdered By: Conner Griffith on 02-15-2023 aPTT Coag (PPP) [Time] 37.0 s 25.1-36.5 [facility] Alanine aminotransferase [En zymatic activity/volume] in Serum or PlasmaOrdered By: Conner Griffith on 02-15-2023 ALT [Catalytic activity/Vol] 13 U/L 7-52 [facility] Albumin [Mass/volume] in Ser um or Plasma by Bromocresol green (BCG) dye binding methoOrdered By: Conner Griffith on 02-15-2023 Albumin BCG dye [Mass/Vol] 4.3 g/dL 3.5-5.7 [facility] Alkaline phosphatase [Enzyma tic activity/volume] in Serum or PlasmaOrdered By: Conner Griffith on 02-15-2023 ALP [Catalytic activity/Vol] 124 U/L 34-104 [facility] Aspartate aminotransferase [ Enzymatic activity/volume] in Serum or PlasmaOrdered By: Conner Griffith on 02-15-2023 AST [Catalytic activity/Vol] 15 U/L 13-39 [facility] Basic Metabolic Panelon 02-03 Anion gap [Moles/Vol] 12.6 mmol/L Normal 6.0-15.0 [facility] Comment on above: Performed By: #### H EPATIC, CBC, BMP, LIPASE #### [facility] [address] Calcium [Mass/Vol] 9.3 mg/dL Normal 8.6-10.3 [facility] Comment on above: Performed By: #### H EPATIC, CBC, BMP, LIPASE #### [facility] [address] [place] [address] [place] Chloride [Moles/Vol] 106 mmol/L Normal 98-107 [facility] Comment on above: Performed By: #### H EPATIC, CBC, BMP, LIPASE #### [facility] [address] [place] [address] [place] CO2 [Moles/Vol] 25.3 mmol/L Normal 21.0-31.0 [facility] Comment on above: Performed By: #### H EPATIC, CBC, BMP, LIPASE #### [facility] [address] Creatinine [Mass/Vol] 0.77 mg/dL Normal 0.60-1.20 [facility] Comment on above: Performed By: #### H EPATIC, CBC, BMP, LIPASE #### [facility] [address] [place] [address] [place] Creatinine Clr Calc Pharmacy 98.01 [facility] Comment on above: Performed By: #### H EPATIC, CBC, BMP, LIPASE #### [facility] [address] [place] [address] [place] GFR/1.73 sq M.predicted MDRD (S/P/Bld) [Vol rate/Area] mL/min/{1.73_m2} [facility] Comment on above: Performed By: #### H EPATIC, CBC, BMP, LIPASE #### [facility] [address] Glucose [Mass/Vol] 94 mg/dL Normal 70-100 [facility] Comment on above: Result Comment: [place] Glucose Reference Range is dependent on time and content of last meal. Glucose of more than 200 mg/dL in a nonstressed, ambulatory subject supports the diagnosis of Diabetes Mellitus. ADA recommended reference range Performed By: #### H EPATIC, CBC, BMP, LIPASE #### [facility] [address] [place] [address] [place] Potassium [Moles/Vol] 3.9 mmol/L Normal 3.5-5.1 [facility] Comment on above: Performed By: #### H EPATIC, CBC, BMP, LIPASE #### [facility] [address] [place] [address] [place] Sodium [Moles/Vol] 140 mmol/L Normal 136-145 [facility] Comment on above: Performed By: #### H EPATIC, CBC, BMP, LIPASE #### [facility] [address] [place] [address] [place] Urea nitrogen [Mass/Vol] 14 mg/dL Normal 7-25 [facility] Comment on above: Performed By: #### H EPATIC, CBC, BMP, LIPASE #### [facility] [address] [place] [address] [place] Basophils Auto (Bld) [#/Vol] Ordered By: Conner Griffith on 02-15-2023 Basophils (Bld) [#/Vol] 0.0 10*3/uL 0.0-0.2 [facility] Basophils/100 WBC Auto (Bld) Ordered By: Conner Griffith on 02-15-2023 Basophils/100 WBC (Bld) 0.6 % . [facility] Bilirubin.direct [Mass/volum e] in Serum or PlasmaOrdered By: Conner Griffith on 02-15-2023 Bilirubin.direct [Mass/Vol] 0.00 mg/dL 0.03-0.18 [facility] Comment on above: If the DBIL is less than 0.1, IBIL is not able to becalculated. Bilirubin.total [Mass/volume ] in Serum or PlasmaOrdered By: Conner Griffith on 02-15-2023 Bilirubin [Mass/Vol] 0.4 mg/dL 0.3-1.[address] [facility] [address] abdomen pelvis w conon CT abdomen pelvis w con [facility] [place] [address] [place] [address] CT Scan Report Signed Patient: Constantino Cardoso MR#: [id number] : 1970 Acct:[id number] Age/Sex: 52 / F ADM Date: 02/15/23 Loc: ER Room: Type: [facility] ER Attending Dr: Copies to: Conner Griffith [...] Columba Domínguez M.D.02/15/2023 9:56 AM Dictation Location: [place] [address] Transcribed By: [facility] 02/15/23 0956 Dictated By: Columba Domínguez MD 02/15/23 0943 Signed By: 02/15/23 0956 Normal [facility] Calcium [Mass/volume] in Ser um or PlasmaOrdered By: Conner Griffith on 02-15-2023 Calcium [Mass/Vol] 9.3 mg/dL 8.6-10.3 [facility] Carbon dioxide, total [Moles /volume] in Serum or PlasmaOrdered By: Conner Griffith on 02-15-2023 CO2 [Moles/Vol] 25.3 mmol/L 21.0-31.0 [facility] Chloride [Moles/volume] in S cristine or PlasmaOrdered By: Conner Griffith on 02-15-2023 Chloride [Moles/Vol] 106 mmol/L 98-107 [facility] Complete Blood Count Auto Di ffon 02-15-2023 Basophils (Bld) [#/Vol] 0.0 10*3/uL Normal 0.0-0.2 [facility] Comment on above: Result Comment: PERF ORMED BY: [place] [address] PATHOLOGIST GATHERING WORKER ROOSEVELT KEYES M.D. Performed By: #### P ORS #### [address] Basophils/100 WBC (Bld) 0.6 % Normal . [facility] Comment on above: Performed By: #### P ORS #### [address] Eosinophils (Bld) [#/Vol] 0.2 10*3/uL Normal 0.0-0.45 [facility] Comment on above: Performed By: #### P ORS #### [address] Eosinophils/100 WBC (Bld) 4.0 % Normal . [facility] Comment on above: Performed By: #### P ORS #### [address] Erythrocyte distribution width (RBC) [Ratio] 13.5 % Normal 11.9-15.3 [facility] Comment on above: Performed By: #### P ORS #### [address] Hematocrit (Bld) [Volume fraction] 38.4 % Normal 34.0-46.4 [facility] Comment on above: Performed By: #### P ORS #### [address] Hemoglobin (Bld) [Mass/Vol] 13.0 g/dL Normal 11.8-15.4 [facility] Comment on above: Performed By: #### P ORS #### [address] Lymphocytes (Bld) [#/Vol] 1.8 10*3/uL Normal 1.00-4.8 [facility] Comment on above: Performed By: #### P ORS #### [address] Lymphocytes/100 WBC (Bld) 33.8 % Normal . [facility] Comment on above: Performed By: #### P ORS #### [address] MCH (RBC) [Entitic mass] 29.4 pg Normal 24.7-34.3 [facility] Comment on above: Performed By: #### P ORS #### [address] MCV (RBC) [Entitic vol] 86.8 fL Normal 80-100 [facility] Comment on above: Performed By: #### P ORS #### [address] Mean Corpuscular HGB Conc 33.8 g/dL Normal 32.0-35.0 [facility] Comment on above: Performed By: #### P ORS #### [address] Monocytes (Bld) [#/Vol] 0.3 10*3/uL Normal 0.0-0.8 [facility] Comment on above: Performed By: #### P ORS #### [address] Monocytes/100 WBC (Bld) 18.21 % Normal 0.00-20.00 [facility] Comment on above: Performed By: #### P ORS #### [address] Monocytes/100 WBC (Bld) 4.8 % Normal . [facility] Comment on above: Performed By: #### P ORS #### [address] Neutrophils (Bld) [#/Vol] 3.0 10*3/uL Normal 1.8-7.7 [facility] Comment on above: Performed By: #### P ORS #### [address] Neutrophils/100 WBC (Bld) 56.8 % Normal . [facility] Comment on above: Performed By: #### P ORS #### [facility] [address] [place] [address] NRBC% 0.2 /100{WBC} Normal 0-0.5 [facility] Comment on above: Performed By: #### P ORS #### [address] Platelet mean volume (Bld) [Entitic vol] 7.3 fL Normal 6.3-10.7 [facility] Comment on above: Performed By: #### P ORS #### [facility] [address] [place] [address] Platelets (Bld) [#/Vol] 385 10*3/uL Normal 150-450 [facility] Comment on above: Performed By: #### P ORS #### [facility] [address] [place] [address] RBC (Bld) [#/Vol] 4.43 10*6/uL Normal 3.60-5.00 [facility] Comment on above: Performed By: #### P ORS #### [facility] [address] [place] [address] WBC (Bld) [#/Vol] 5.2 10*3/uL Normal 3.8-11.6 [facility] Comment on above: Performed By: #### P ORS #### [address] Creatinine [Mass/volume] in Serum or PlasmaOrdered By: Conner Griffith on 02-15-2023 Creatinine [Mass/Vol] 0.77 mg/dL 0.60-1.20 [facility] Eosinophils Auto (Bld) [#/Vo l]Ordered By: Conner Griffith on 02-15-2023 Eosinophils (Bld) [#/Vol] 0.2 10*3/uL 0.0-0.45 [facility] Eosinophils/100 WBC Auto (Bl d)Ordered By: Conner Griffith on 02-15-2023 Eosinophils/100 WBC (Bld) 4.0 % . [facility] Erythrocyte distribution wid th Auto (RBC) [Ratio]Ordered By: Conner Griffith on 02-15-2023 Erythrocyte distribution width (RBC) [Ratio] 13.5 % 11.9-15.3 [facility] Globulin Calc (S) [Mass/Vol] Ordered By: Conner Griffith on 02-15-2023 Globulin (S) [Mass/Vol] 3.0 g/dL [facility] Glucose [Mass/volume] in Ser um or PlasmaOrdered By: Conner Griffith on 02-15-2023 Glucose [Mass/Vol] 94 mg/dL 70-100 [facility] Comment on above: ADA recommended refe rence rangeRandom Glucose Reference Range is dependent on time and content of last meal. Glucose of more than 200 mg/dL in a nonstressed, ambulatory subject supports the diagnosis of Diabetes Mellitus. Hematocrit Auto (Bld) [Volum e fraction]Ordered By: Conner Griffith on 02-15-2023 Hematocrit (Bld) [Volume fraction] 38.4 % 34.0-46.4 [facility] Hemoglobin [Mass/volume] in BloodOrdered By: Conner Griffith on 02-15-2023 Hemoglobin (Bld) [Mass/Vol] 13.0 g/dL 11.8-15.4 [facility] Hepatic Panelon 02-15-2023 Albumin [Mass/Vol] 4.3 g/dL Normal 3.5-5.7 [facility] Comment on above: Performed By: #### P ORS #### [facility] [address] [place] [address] [place] Albumin/Globulin [Mass ratio] 1.4 {ratio} Normal [facility] Comment on above: Performed By: #### P ORS #### [facility] [address] [place] [address] [place] ALP [Catalytic activity/Vol] 124 U/L High 34-104 [facility] Comment on above: Performed By: #### P ORS #### [facility] [address] [place] [address] ALT [Catalytic activity/Vol] 13 U/L Normal 7-52 [facility] Comment on above: Performed By: #### P ORS #### [address] AST [Catalytic activity/Vol] 15 U/L Normal 13-39 [facility] Comment on above: Performed By: #### P ORS #### [address] Bilirubin [Mass/Vol] 0.4 mg/dL Normal 0.3-1.0 [facility] Comment on above: Performed By: #### P ORS #### [address] Bilirubin,Indirect 0.4 mg/dL Normal [facility] Comment on above: Performed By: #### P ORS #### [address] Bilirubin.indirect [Mass/Vol] 0.00 mg/dL Low 0.03-0.18 [facility] Comment on above: Result Comment: If t he DBIL is less than 0.1, IBIL is not able to be calculated. Performed By: #### P ORS #### [address] Globulin (S) [Mass/Vol] 3.0 g/dL Normal [facility] Comment on above: Performed By: #### P ORS #### [address] Protein [Mass/Vol] 7.3 g/dL Normal 6.4-8.9 [facility] Comment on above: Performed By: #### P ORS #### [address] Laboratory - CoagulationOrde red By: Conner Griffith on 02-15-2023 PT Coag (PPP) [Time] 11.7 s 9.0-12.9 [facility] Leukocytes [#/volume] correc jun for nucleated erythrocytes in Blood by Automated counOrdered By: Conner Griffith on 02-15-2023 WBC corrected for nucl RBC Auto (Bld) [#/Vol] 5.2 10*3/uL 3.8-11.6 [facility] Lipaseon 02-15-2023 Lipase [Catalytic activity/Vol] 19.0 U/L Normal 11.0-82.0 [facility] Comment on above: Result Comment: PERF ORMED BY: [facility] [address] [place] [address] PATHOLOGIST GATHERING WORKER ROOSEVELT KEYES M.D. Performed By: #### H EPATIC, CBC, BMP, LIPASE #### [facility] [address] Lipase [Enzymatic activity/v olume] in Serum or PlasmaOrdered By: Conner Griffith on 02-15-2023 Lipase [Catalytic activity/Vol] 19.0 U/L 11.0-82.0 [facility] Lymphocytes Auto (Bld) [#/Vo l]Ordered By: Conner Griffith on 02-15-2023 Lymphocytes (Bld) [#/Vol] 1.8 10*3/uL 1.00-4.8 [facility] Lymphocytes/100 WBC Auto (Bl d)Ordered By: Conner Griffith on 02-15-2023 Lymphocytes/100 WBC (Bld) 33.8 % . [facility] MCH Auto (RBC) [Entitic mass ]Ordered By: Conner Griffith on 02-15-2023 MCH (RBC) [Entitic mass] 29.4 pg 24.7-34.3 [facility] MCHC Auto (RBC) [Mass/Vol]Or dered By: Conner Griffith on 02-15-2023 MCHC (RBC) [Mass/Vol] 33.8 g/dL 32.0-35.0 [facility] MCV Auto (RBC) [Entitic vol] Ordered By: Conner Griffith on 02-15-2023 MCV (RBC) [Entitic vol] 86.8 fL 80-100 [facility] Monocyte distribution width [Entitic volume] in Blood by AutomatedOrdered By: Conner Griffith on 02-15-2023 Monocyte distribution width Auto (Bld) [Entitic vol] 18.21 % 0.00-20.00 [facility] Monocytes Auto (Bld) [#/Vol] Ordered By: Conner Griffith on 02-15-2023 Monocytes (Bld) [#/Vol] 0.3 10*3/uL 0.0-0.8 [facility] Monocytes/100 WBC Auto (Bld) Ordered By: Conner Griffith on 02-15-2023 Monocytes/100 WBC (Bld) 4.8 % . [facility] Neutrophils Auto (Bld) [#/Vo l]Ordered By: Conner Griffith on 02-15-2023 Neutrophils (Bld) [#/Vol] 3.0 10*3/uL 1.8-7.7 [facility] Neutrophils/100 WBC Auto (Bl d)Ordered By: Conner Griffith on 02-15-2023 Neutrophils/100 WBC (Bld) 56.8 % . [facility] No Panel InformationOrdered By: Conner Griffith on 02-15-2023 Estimated GFR (CKD-EPI) > 60.0 mL/Min [facility] Creatinine Clearance (Chem 98.01 [facility] Nucleated erythrocytes [Pres ence] in Blood by Automated countOrdered By: Conner Griffith on 02-15-2023 Nucleated RBC Auto Ql (Bld) 0.2 /100{WBC} 0-0.5 [facility] Partial Thromboplastin Timeo n 02-15-2023 aPTT Coag (Bld) [Time] 37.0 s High 25.1-36.5 [facility] Comment on above: Result Comment: PERF ORMED BY: [place] [address] PATHOLOGIST GATHERING WORKER ROOSEVELT KEYES M.D. Performed By: #### P ORS #### [address] Platelet mean volume Auto (B ld) [Entitic vol]Ordered By: Conner Griffith on 02-15-2023 Platelet mean volume (Bld) [Entitic vol] 7.3 fL 6.3-10.7 [facility] Platelet poor plasma interna tional normalized ratio (INR) by coagulation assay (relatOrdered By: Conner Griffith on 02-15-2023 INR Coag (PPP) [Relative time] 1.0 {INR} [facility] Comment on above: INR Therapeutic Rang [...] 02-15-2023 Platelets (Bld) [#/Vol] 385 10*3/uL 150-450 [facility] Potassium [Moles/volume] in Serum or PlasmaOrdered By: Conner Griffith on 02-15-2023 Potassium [Moles/Vol] 3.9 mmol/L 3.5-5.1 [facility] Protein [Mass/volume] in Ser um or PlasmaOrdered By: Conner Griffith on 02-15-2023 Protein [Mass/Vol] 7.3 g/dL 6.4-8.9 [facility] Prothrombin Time INRon 02-15 INR Coag (PPP) [Relative time] 1.0 {INR} Normal [facility] Comment on above: Result Comment: INR [...] 4.5 Performed By: #### P ORS #### [address] PT Coag (PPP) [Time] 11.7 s Normal 9.0-12.9 [facility] Comment on above: Performed By: #### P ORS #### [facility] [address] [place] [id number] [facility] RBC Auto (Bld) [#/Vol]Ordere d By: Conner Griffith on 02-15-2023 RBC (Bld) [#/Vol] 4.43 10*6/uL 3.60-5.00 [facility] Serum or plasma albumin/glob ulin mass ratioOrdered By: Conner Griffith on 02-15-2023 Albumin/Globulin [Mass ratio] 1.4 {ratio} [facility] Serum or plasma anion gap de terminationOrdered By: Conner Griffith on 02-15-2023 Anion gap [Moles/Vol] 12.6 mmol/L 6.0-15.0 [facility] Serum or plasma non-glucuron idated bilirubin measurement (mass/volume)Ordered By: Conner Griffith on 02-15-2023 Bilirubin.indirect [Mass/Vol] 0.4 mg/dL [facility] Sodium [Moles/volume] in Ser um or PlasmaOrdered By: Conner Griffith on 02-15-2023 Sodium [Moles/Vol] 140 mmol/L 136-145 [facility] Urea nitrogen [Mass/volume] in Serum or PlasmaOrdered By: Conner Griffith on 02-15-2023 Urea nitrogen [Mass/Vol] 14 mg/dL 7-25 [facility] WBC Auto (Bld) [#/Vol]Ordere d By: Conner Griffith on 02-15-2023 WBC (Bld) [#/Vol] 5.2 10*3/uL 3.8-11.6 [facility] MG MAMM SCREEN 3D MACARIO CADon 11-30-2022 MG MAMM SCREEN 3D MACARIO CAD Normal [facility] ER URINE PROFILEon 3 Bilirubin Ql (U) Negative Normal NEGATIVE [facility] Comment on above: Performed By: #### E RUR ####[facility] [address] [place], [place] [address]FmNeo Tadeo Haja Clarity (U) CLEAR Normal CLEAR [facility] Comment on above: Performed By: #### E RUR ####[facility] [address] [place] [address]Dr. Tadeo Smyth Color (U) YELLOW Normal YELLOW [facility] Comment on above: Performed By: #### E RUR ####[facility] [address] [place], [place] [address]Dr. Tadeo Smyth ERUAHD A micrscopic examina tion will be performed if indicated. Normal [facility] Comment on above: Performed By: #### E RUR ####[facility] [address] [place], [place] [address]Dr. Tadeo Smyth Glucose Ql (U) Negative Normal NEGATIVE [facility] Comment on above: Performed By: #### E RUR ####[facility] [address] [place], [place] [address]Dr. Tadeo Smyth Hemoglobin Ql (U) TRACE-INTACT Abnormal NEGATIVE [facility] Comment on above: Performed By: #### E RUR ####[facility] [address] [place], [place] [address]Dr. Tadeo Smyth Ketones Ql (U) Negative Normal NEGATIVE [facility] Comment on above: Performed By: #### E RUR ####[facility] [address]fs[address] [place], [place] [address]Dr. Tadeo Smyth LEUKOCYTES Negative Normal NEGATIVE [facility] Comment on above: Performed By: #### E RUR ####[facility] [address] [place], [place] [address]Dr. Tadeo Smyth Nitrite Ql (U) Negative Normal NEGATIVE [facility] Comment on above: Performed By: #### E RUR ####[facility] [address] [place], [place] [address]Dr. Tadeo Smyth pH (U) 6.0 [pH] Normal 5-9 [facility] Comment on above: Performed By: #### E RUR ####[facility] Em[address] [place], [place] [address]Dr. Tadeo Smyth SPEC GRAVITY >=1.030 Abnormal 1.005-<=1.0 25 [facility] Comment on above: Performed By: #### E RUR ####[facility] [address] [place] [address]Dr. Tadeo Smyth UA PROTEIN Negative Normal NEGATIVE/ TRACE [facility] Comment on above: Performed By: #### E RUR ####[facility] Dsv[address] [place], [place] [address]Dr. Margotnicole Smyth UR MICRO IND NOT INDICATED Normal [facility] Comment on above: Performed By: #### E RUR ####[facility] Y[address]owxqmt[address] [place], [place] [address]Dr. Margotnicole Smyth Urobilinogen Qn (U) 0.2 {Benito'U}/dL Normal 0.2 - 1. 0 [facility] Comment on above: Performed By: #### E RUR ####[facility] I[address]ci[address] [place], [place] [address]Dr. Tadeo Smyth XR ABD FLAT UP_PA Kasey 11-28 XR ABD FLAT UP_PA CH Normal [facility] AMYLASEon 11-27-2022 Amylase [Catalytic activity/Vol] 63 U/L Normal 25-115 [facility] Comment on above: Performed By: #### L IPA, VIJI, CMP ####[facility] [address]fs[address] [place], [place] [address]Dr. Tadeo Smyth CBC AUTO DIFFon 11-27-2022 BASO # 0.0 103/ul Normal 0.0-0.1 [facility] Comment on above: Performed By: #### C BC ####[facility] Hf[address]wuwnca[address] [place], [place] [address]Dr. Tadeo Smyth Basophils/100 WBC (Bld) 0.4 % Normal 0.2-2.0 [facility] Comment on above: Performed By: #### C BC ####[facility] Dfclqpwbry[address] [place], [place] [address]Dr. Tadeo Smyth EO # 0.2 103/ul Normal 0.0-0.7 [facility] Comment on above: Performed By: #### C BC ####[facility] Nvcbsnhjxv[address] [place], [place] [address]Dr. Tadeo Smyth Eosinophils/100 WBC (Bld) 2.8 % Normal 0.9-7.0 [facility] Comment on above: Performed By: #### C BC ####[facility] [address] [place] [address]Dr. Tadeo Smyth Erythrocyte distribution width (RBC) [Ratio] 13.2 % Normal 11.0-15.0 [facility] Comment on above: Performed By: #### C BC ####[facility] Rhogrq[address]fs[address] [place], [place] [address]Dr. Tadeo Smyth Hematocrit (Bld) [Volume fraction] 42.6 % Normal 36.0-48.0 [facility] Comment on above: Performed By: #### C BC ####[facility] Rxw[address]ur[address] [place], [place] [address]Dr. Tadeo Smyth Hemoglobin (Bld) [Mass/Vol] 13.6 g/dL Normal 12.0-16.0 [facility] Comment on above: Performed By: #### C BC ####[facility] Fubthf[address]dfi[address] [place], [place] [address]Dr. Tadeo Smyth IG # 0.02 10e3/ul Normal 0.00-0.03 [facility] Comment on above: Performed By: #### C BC ####[facility] [address]ue[address] [place], [place] [address]Dr. Tadeo Smyth IG % 0.3 % Normal 0.0-0.5 [facility] Comment on above: Performed By: #### C BC ####[facility] [address]xf[address] [place], [place] [address]Dr. Tadeo Smyth LYMPH # 2.2 103/ul Normal 1.2-3.8 [facility] Comment on above: Performed By: #### C BC ####[facility] [address] [place], [place] [address]Dr. Tadeo Smyth Lymphocytes/100 WBC (Bld) 32.1 % Normal 20.5-60.0 [facility] Comment on above: Performed By: #### C BC ####[facility] Vhoojebvzz[address] [place], [place] [address]Dr. Tadeo Smyth MANUAL DIFF REQ NO Normal [facility] Comment on above: Performed By: #### C BC ####[facility] Xctbefiyeh0101 [place] [id number]. Tadeo Haja MCH (RBC) [Entitic mass] 29.6 pg Normal 26.7-34.0 [facility] Comment on above: Performed By: #### C BC ####[facility] Nyzsonijoc4661 [place] [address]Dr. Tadeo Haja MCHC (RBC) [Mass/Vol] 31.9 g/dL Normal 29.9-35.2 [facility] Comment on above: Performed By: #### C BC ####[facility] Hmyawqpupp9405 [place] [address]Dr. Tadeo Smyth MCV (RBC) [Entitic vol] 92.6 fL Normal 81.0-99.0 [facility] Comment on above: Performed By: #### C BC ####[facility] Kwbpqwvlwy9060[address] [place], [place] [address]Dr. Tadeo Smyth MONO # 0.2 103/ul Critically low 0.3-0.8 [facility] Comment on above: Performed By: #### C BC ####[facility] Blmlnxhqau8980[address] [place], [place] [address]Dr. Tadeo Smyth Monocytes/100 WBC (Bld) 3.2 % Normal 1.7-12.0 [facility] Comment on above: Performed By: #### C BC ####[facility] Jtybymfnbi5739[address] [place], [place] [address]DrNeo Smyth NEUT # 4.2 103/ul Normal 1.4-6.5 [facility] Comment on above: Performed By: #### C BC ####[facility] Aqejbbdtze8615[address] [place], [place] [address]DrNeo Smyth Neutrophils/100 WBC (Bld) 61.2 % Normal 43.0-75.0 [facility] Comment on above: Performed By: #### C BC ####[facility] Ifyxivnovc4515[address] [place], [place] [address]DrNeo Smyth Platelet mean volume (Bld) [Entitic vol] 9.0 fL Critically low 9.5-13.5 [facility] Comment on above: Performed By: #### C BC ####[facility] Qqemkvjrtf0434 [place] [address]Dr. Tadeo Smyth PLT 392 103/ul Normal 150-450 [facility] Comment on above: Performed By: #### C BC ####[facility] Uiuppeyxnu3584 [place] [address]Dr. Tadeo Smyth RBC 4.60 106/ul Normal 4.20-5.40 [facility] Comment on above: Performed By: #### C BC ####[facility] Kloptufqcf4162 [place] [address]Dr. Tadeo Smyth WBC 6.9 103/ul Normal 4.0-11.0 [facility] Comment on above: Performed By: #### C BC ####[facility] Oiiadkjiqw068[address] [place], [place] [address]Dr. Tadeo Smyth LIPASEon 11-27-2022 Lipase [Catalytic activity/Vol] 100.0 U/L Normal 73.0-393.0 [facility] Comment on above: Performed By: #### L VIJI HALL, CMP ####[facility] Wzvgyeurfc4659[address] [place], [place] [address]Dr. Tadeo Smyth PROF 14(COMP METB)on 023 Albumin [Mass/Vol] 3.5 g/dL Normal 3.4-5.0 [facility] Comment on above: Performed By: #### L VIJI HALL, CMP ####[facility] Oqosomdgrj9488 [place] [address]Dr. Tadeo Smyth Albumin/Globulin [Mass ratio] 0.9 {ratio} Normal [facility] Comment on above: Performed By: #### L VIJI HALL, CMP ####[facility] Dvanwqeqpr3411[address] [place], [place] [address]Dr. Tadeo Smyth ALP [Catalytic activity/Vol] 166 U/L Critically high 46-116 [facility] Comment on above: Performed By: #### L VIJI HALL, CMP ####[facility] Hqwvnyzega969[address] [place], [place] [address]Dr. Tadeo Smyth ALT [Catalytic activity/Vol] 25 U/L Normal 14-59 [facility] Comment on above: Performed By: #### L VIJI HALL, CMP ####[facility] Fytfhanxhx8802 [place] [address]Dr. Tadeo Smyth Anion gap [Moles/Vol] 12.4 mmol/L Normal Th e [facility] Comment on above: Performed By: #### L VIJI HALL, CMP ####[facility] Jeuazotpmd7689 [place] [address]Dr. Tadeo Smyth AST [Catalytic activity/Vol] 18 U/L Normal 15-37 [facility] Comment on above: Performed By: #### L VIJI HALL, CMP ####[facility] Qxdwebnsmw1918 [place] [address]Dr. Tadeo Smyth Bilirubin [Mass/Vol] 0.3 mg/dL Normal 0.2-1.0 [facility] Comment on above: Performed By: #### L VIJI HALL, CMP ####[facility] Idmwugjddd8369 [place] [address]Dr. Tadeo Smyth Calcium [Mass/Vol] 9.1 mg/dL Normal 8.5-10.1 [facility] Comment on above: Performed By: #### L VIJI HALL, CMP ####[facility] Dzvcyxfpis6642 [place] [address]Dr. Tadeo Smyth Chloride [Moles/Vol] 104 mmol/L Normal 98-107 [facility] Comment on above: Performed By: #### L VIJI HALL, CMP ####[facility] Guggafrqwn8534 [place] [address]Dr. Tadeo Smyth CO2 [Moles/Vol] 25.0 mmol/L Normal 21.0-32.0 [facility] Comment on above: Performed By: #### L VIJI HALL, CMP ####[facility] Ghakklptln0963 [place] [address]Dr. Tadeo Smyth Creatinine [Mass/Vol] 0.87 mg/dL Normal 0.55-1.02 [facility] Comment on above: Performed By: #### L VIJI HALL, CMP ####[facility] Lfdvlidgvn0535 [place] [address]Dr. Tadeo Smyth EGFR-AF TOGOLESE >60 Normal >=60 [facility] Comment on above: Performed By: #### L VIJI HALL, CMP ####[facility] Yizokrjhnn1606 [place] [address]Dr. Tadeo Smyth EGFR-NON AF TOGOLESE >60 Normal >=60 [facility] Comment on above: Performed By: #### L VIJI HALL, CMP ####[facility] Ridjjvgkwu7283 [place] [address]Dr. Tadeo Smyth Globulin (S) [Mass/Vol] 3.9 g/dL Normal [facility] Comment on above: Performed By: #### L VIJI HALL, CMP ####[facility] Makxbsxpjq895[address] [place], [place] [address]Dr. Tadeo Smyth Glucose [Mass/Vol] 169 mg/dL Critically high 74-106 [facility] Comment on above: Performed By: #### L VIJI HALL, CMP ####[facility] Opihqiaxfu313[address] [place], [place] [address]Dr. Tadeo Smyth Potassium [Moles/Vol] 3.4 mmol/L Critically low 3.5-5.1 [facility] Comment on above: Performed By: #### L VIJI HALL, CMP ####[facility] Hspuhhiobi69[address] [place], [place] [address]Dr. Tadeo Smyth Protein [Mass/Vol] 7.4 g/dL Normal 6.4-8.2 [facility] Comment on above: Performed By: #### L VIJI HALL, CMP ####[facility] Dzrcblcsmr989[address] [place], [place] [address]Dr. Tadeo Smyth Sodium [Moles/Vol] 138 mmol/L Normal 136-145 [facility] Comment on above: Performed By: #### L VIJI HALL, CMP ####[facility] Bxmfjnpgbr9632 [place] [address]Dr. Tadeo Smyth Urea nitrogen [Mass/Vol] 23.0 mg/dL Critically high 7.0-18.0 [facility] Comment on above: Performed By: #### L VIJI HALL, CMP ####[facility] Bnuidrrqkd9167 [place], [place] [address]SmNeo Smyth Urea nitrogen/Creatinine [Mass ratio] 26.4 mg/mg Normal [facility] Comment on above: Performed By: #### L ISABEL, VIJI, CMP ####[facility] Egcpkvacfx0793 [place], [place] [address]We. Tadeo [address] CT enterographyon 11-04-2022 CT enterography [facility] [place] [address] CT Scan Report Signed Patient: Constantino Cardoso MR#: [id number] : 1970 Acct:[id number] Age/Sex: 52 / F ADM Date: 11/04/22 Loc: CT Room: Type: [facility] Attending Dr: Jennie Ayon MD Copies [...] abnormality. Impression dictated by: Tiburcio Bateman Jr., D.O.11/04/2022 11:17 AM Dictation Location: [place] [address] Transcribed By: [facility] 11/04/22 1117 Dictated By: Tiburcio Bateman Jr, DO 11/04/22 1112 Signed By: 11/04/22 1117 Normal [facility] AMYLASEon 11-02-2022 Amylase [Catalytic activity/Vol] 40 U/L Normal 25-115 [facility] Comment on above: Performed By: #### L IPA, MG, CMP, VIJI ####[facility] Mtutoemken6547 [place] [id number]. Tadeo Smyth CBC AUTO DIFFon 11-02-2022 BASO # 0.0 103/ul Normal 0.0-0.1 [facility] Comment on above: Performed By: #### C BC ####[facility] Hbenlqiefl7201 [place] [address]Dr. Tadeo Smyth Basophils/100 WBC (Bld) 0.5 % Normal 0.2-2.0 [facility] Comment on above: Performed By: #### C BC ####[facility] Mxakyprozr7194 [place] [address]Dr. Tadeo Smyth EO # 0.1 103/ul Normal 0.0-0.7 [facility] Comment on above: Performed By: #### C BC ####[facility] Chbclwcdth5669 [place] [id number]. Tadeo Smyth Eosinophils/100 WBC (Bld) 2.8 % Normal 0.9-7.0 [facility] Comment on above: Performed By: #### C BC ####[facility] Yobyhseoet2149 [place] [address]Dr. Tadeo Smyth Erythrocyte distribution width (RBC) [Ratio] 13.3 % Normal 11.0-15.0 [facility] Comment on above: Performed By: #### C BC ####[facility] Aqeizlcjok5953 [place] [address]Dr. Tadeo Smyth Hematocrit (Bld) [Volume fraction] 35.6 % Critically low 36.0-48.0 [facility] Comment on above: Performed By: #### C BC ####[facility] Cdbmedtvnd1520[address] [place], [place] [address]Dr. Margotnicole Smyth Hemoglobin (Bld) [Mass/Vol] 11.3 g/dL Critically low 12.0-16.0 [facility] Comment on above: Performed By: #### C BC ####[facility] Gcccwiuocz6017[address] [place], [place] [address]Dr. Tadeo Smyth IG # 0.01 10e3/ul Normal 0.00-0.03 [facility] Comment on above: Performed By: #### C BC ####[facility] Tcuvfhvlzy4715[address] [place], [place] [address]Dr. Tadeo Smyth IG % 0.2 % Normal 0.0-0.5 [facility] Comment on above: Performed By: #### C BC ####[facility] Eltjmjeckg9067[address] [place], [place] [address]Dr. Tadeo Smyth LYMPH # 1.5 103/ul Normal 1.2-3.8 [facility] Comment on above: Performed By: #### C BC ####[facility] Umysglhymv318646 [address] [place], [place] [address]Dr. Tadeo Smyth Lymphocytes/100 WBC (Bld) 34.9 % Normal 20.5-60.0 [facility] Comment on above: Performed By: #### C BC ####[facility] Nkdbniebnw0538[address] [place], [place] [address]Dr. Tadeo Smyth MANUAL DIFF REQ NO Normal [facility] Comment on above: Performed By: #### C BC ####[facility] Kejzrutaxk730[address] [place], [place] [address]Dr. Tadeo Smyth MCH (RBC) [Entitic mass] 28.8 pg Normal 26.7-34.0 [facility] Comment on above: Performed By: #### C BC ####[facility] Zsrlkffnqc3663 [place] [id number]. Margotnicole Smyth MCHC (RBC) [Mass/Vol] 31.7 g/dL Normal 29.9-35.2 [facility] Comment on above: Performed By: #### C BC ####[facility] Qqvzomftuv9158 [place] [id number]. Tadeo Smyth MCV (RBC) [Entitic vol] 90.8 fL Normal 81.0-99.0 [facility] Comment on above: Performed By: #### C BC ####[facility] Bkmyybvbbo207[address] [place], [place] [address]Dr. Tadeo Smyth MONO # 0.3 103/ul Normal 0.3-0.8 [facility] Comment on above: Performed By: #### C BC ####[facility] Lbzqgyxhwo2516[address] [place], [place] [address]Dr. Tadeo Smyth Monocytes/100 WBC (Bld) 6.9 % Normal 1.7-12.0 [facility] Comment on above: Performed By: #### C BC ####[facility] Nocmmnqyhr460[address] [place], [place] [address]Dr. Tadeo Smyth NEUT # 2.4 103/ul Normal 1.4-6.5 [facility] Comment on above: Performed By: #### C BC ####[facility] Ehvjmyjnnv264[address] [place], [place] [address]Dr. Tadeo Smyth Neutrophils/100 WBC (Bld) 54.7 % Normal 43.0-75.0 [facility] Comment on above: Performed By: #### C BC ####[facility] Cioisifzat8589[address] [place], [place] [address]Dr. Tadeo Smyth Platelet mean volume (Bld) [Entitic vol] 8.9 fL Critically low 9.5-13.5 [facility] Comment on above: Performed By: #### C BC ####[facility] Xprzwvoysv828046 [address] [place], [place] [address]Dr. Tadeo Smyth PLT 316 103/ul Normal 150-450 [facility] Comment on above: Performed By: #### C BC ####[facility] Athalsengv5629 [place] [address]Dr. Tadeo Smyth RBC 3.92 106/ul Critically low 4.20-5.40 [facility] Comment on above: Performed By: #### C BC ####[facility] Rbgohgtbpj7900 [place] [address]Dr. Tadeo Smyth WBC 4.4 103/ul Normal 4.0-11.0 [facility] Comment on above: Performed By: #### C BC ####[facility] Xksqgwtmti6135 [place] [address]Dr. Tadeo Smyth H PYLORI ANTIBODY IGGon 10-07 H. PYLORI IGG ABS 0.12 Index Value Normal 0.00-0.79 [facility] Comment on above: Result Comment: Nega tive <0.80 Equivocal 0.80 - 0.89 Positive >0.89 Performed By: #### H PYLLC ####[facility] Ftmadrkmyg8999[address] [place], [place] [address]Dr. Tadeo Smyth LIPASEon 11-02-2022 Lipase [Catalytic activity/Vol] 58.0 U/L Critically low 73.0-393.0 [facility] Comment on above: Performed By: #### L IPA, MG, CMP, VIJI ####[facility] Kszpuptecl2499[address] [place], [place] [address]Dr. Tadeo Smyth MAGNESIUMon 11-02-2022 Magnesium [Mass/Vol] 1.8 mg/dL Normal 1.8-2.4 [facility] Comment on above: Performed By: #### L IPA, MG, CMP, VIJI ####[facility] Vmaxldpxvp1635[address] [place], [place] [address]Dr. Margotnicole Smyth PROF 14(COMP METB)on 023 Albumin [Mass/Vol] 3.2 g/dL Critically low 3.4-5.0 [facility] Comment on above: Performed By: #### L IPA, MG, CMP, VIJI ####[facility] Vnzuqopsvw4833[address] [place], [place] [address]Dr. Tadeo Smyth Albumin/Globulin [Mass ratio] 1.0 {ratio} Normal [facility] Comment on above: Performed By: #### L IPA, MG, CMP, VIJI ####[facility] Ixvivuervv4945 [place] [address]Dr. Tadeo Smyth ALP [Catalytic activity/Vol] 138 U/L Critically high 46-116 [facility] Comment on above: Performed By: #### L IPA, MG, CMP, VIJI ####[facility] Barbtrvjle804346 [address] [place], [place] [address]Dr. Tadeo Smyth ALT [Catalytic activity/Vol] 22 U/L Normal 14-59 [facility] Comment on above: Performed By: #### L IPA, MG, CMP, VIJI ####[facility] Parnvhiolj3950[address] [place], [place] [address]Dr. Tadeo Smyth Anion gap [Moles/Vol] 10.0 mmol/L Normal [facility] Comment on above: Performed By: #### L IPA, MG, CMP, VIJI ####[facility] Txgqvfflli622[address] [place], [place] [address]Dr. Tadeo Smyth AST [Catalytic activity/Vol] 18 U/L Normal 15-37 [facility] Comment on above: Performed By: #### L IPA, MG, CMP, VIJI ####[facility] Jnszoparfb3112[address] [place], [place] [address]Dr. Tadeo Smyth Bilirubin [Mass/Vol] 0.5 mg/dL Normal 0.2-1.0 [facility] Comment on above: Performed By: #### L IPA, MG, CMP, VIJI ####[facility] Lawmshwiji770[address] [place], [place] [address]Dr. Tadeo Smyth Calcium [Mass/Vol] 8.9 mg/dL Normal 8.5-10.1 [facility] Comment on above: Performed By: #### L IPA, MG, CMP, VIJI ####[facility] Xidyldafmv7204 [place] [address]Dr. Tadeo Smyth Chloride [Moles/Vol] 107 mmol/L Normal 98-107 [facility] Comment on above: Performed By: #### L IPA, MG, CMP, VIJI ####[facility] Zrdfenbeen1776 [place] [address]Dr. Tadeo Smyth CO2 [Moles/Vol] 28.8 mmol/L Normal 21.0-32.0 [facility] Comment on above: Performed By: #### L IPA, MG, CMP, VIJI ####[facility] Mdljfamnog7229 [place] [address]Dr. Tadeo Smyth Creatinine [Mass/Vol] 0.74 mg/dL Normal 0.55-1.02 [facility] Comment on above: Performed By: #### L IPA, MG, CMP, VIJI ####[facility] Wtayzlzgsn2539 [place] [address]Dr. Tadeo Haja EGFR-AF TOGOLESE >60 Normal >=60 [facility] Comment on above: Performed By: #### L IPA, MG, CMP, VIJI ####[facility] Rxyybecryy3850 [place] [address]Dr. Tadeo Smyth EGFR-NON AF TOGOLESE >60 Normal >=60 [facility] Comment on above: Performed By: #### L IPA, MG, CMP, VIJI ####[facility] Pzzmepncrm5414 [place] [address]Dr. Tadeo Haja Globulin (S) [Mass/Vol] 3.3 g/dL Normal [facility] Comment on above: Performed By: #### L IPA, MG, CMP, VIJI ####[facility] Beeimqywos0142 [place] [address]Dr. Tadeo Smyth Glucose [Mass/Vol] 96 mg/dL Normal 74-106 [facility] Comment on above: Performed By: #### L IPA, MG, CMP, VIJI ####[facility] Utcxeqdtcv9625 [place] [address]Dr. Margotnicole Smyth Potassium [Moles/Vol] 3.8 mmol/L Normal 3.5-5.1 [facility] Comment on above: Performed By: #### L IPA, MG, CMP, VIJI ####[facility] Csrrgdwxda9828 [place] [address]Dr. Margotnicole Smyth Protein [Mass/Vol] 6.5 g/dL Normal 6.4-8.2 [facility] Comment on above: Performed By: #### L IPA, MG, CMP, VIJI ####[facility] Tufuvhfobh300[address] [place], [place] [address]Dr. Tadeo Smyth Sodium [Moles/Vol] 142 mmol/L Normal 136-145 [facility] Comment on above: Performed By: #### L IPA, MG, CMP, VIJI ####[facility] Uuwpkpbwdo8516[address] [place], [place] [address]Dr. Tadeo Smyth Urea nitrogen [Mass/Vol] 8.0 mg/dL Normal 7.0-18.0 [facility] Comment on above: Performed By: #### L IPA, MG, CMP, VIJI ####[facility] Bhnexsipoj3101[address] [place], [place] [address]Dr. Tadeo Smyth Urea nitrogen/Creatinine [Mass ratio] 10.8 mg/mg Normal [facility] Comment on above: Performed By: #### L IPA, MG, CMP, VIJI ####[facility] Gtnotpsfho7720[address] [place], [place] [address]Dr. Tadeo Smyth AMMONIAon 11-01-2022 Ammonia (P) [Moles/Vol] 18 umol/L Normal 11-32 [facility] Comment on above: Performed By: #### A MM ####[facility] Irgzekwkvc350[address] [place], [place] [address]Dr. Tadeo Smyth AMYLASEon 11-01-2022 Amylase [Catalytic activity/Vol] 43 U/L Normal 25-115 [facility] Comment on above: Performed By: #### M G, VIJI, LIPA, CMP ####[facility] Cbbekfpuyi0613[address] [place], [place] [address]Dr. Tadeo Smyth CBC AUTO DIFFon 11-01-2022 BASO # 0.0 103/ul Normal 0.0-0.1 [facility] Comment on above: Performed By: #### C BC ####[facility] Yxjmpsudwz3495[address] [place], [place] [address]Dr. Tadeo Smyth Basophils/100 WBC (Bld) 0.6 % Normal 0.2-2.0 [facility] Comment on above: Performed By: #### C BC ####[facility] Lxjdxyzrzw9186 [place] [address]Dr. Tadeo Smyth EO # 0.1 103/ul Normal 0.0-0.7 [facility] Comment on above: Performed By: #### C BC ####[facility] Ilkxpnzqmb3996 [place] [address]Dr. Tadeo Smyth Eosinophils/100 WBC (Bld) 1.5 % Normal 0.9-7.0 [facility] Comment on above: Performed By: #### C BC ####[facility] Txeikrbzez8305[address] [place], [place] [address]Dr. Tadeo Smyth Erythrocyte distribution width (RBC) [Ratio] 13.5 % Normal 11.0-15.0 [facility] Comment on above: Performed By: #### C BC ####[facility] Jpusyjqgus9579[address] [place], [place] [address]Dr. Tadeo Smyth Hematocrit (Bld) [Volume fraction] 37.7 % Normal 36.0-48.0 [facility] Comment on above: Performed By: #### C BC ####[facility] Mcfkuulioa6125[address] [place], [place] [address]Dr. Tadeo Smyth Hemoglobin (Bld) [Mass/Vol] 12.5 g/dL Normal 12.0-16.0 [facility] Comment on above: Performed By: #### C BC ####[facility] Ayqwwiikyw518[address] [place], [place] [address]Dr. Margotnicole Smyth IG # 0.02 10e3/ul Normal 0.00-0.03 [facility] Comment on above: Performed By: #### C BC ####[facility] Lxudwzgpsl937[address] [place], [place] [address]Dr. Tadeo Smyth IG % 0.4 % Normal 0.0-0.5 [facility] Comment on above: Performed By: #### C BC ####[facility] Wanpgejepu048346 [address] [place], [place] [address]Dr. Tadeo Smyth LYMPH # 1.3 103/ul Normal 1.2-3.8 [facility] Comment on above: Performed By: #### C BC ####[facility] Wmkeazinte4027 [place] [id number]. Tadeo Haja Lymphocytes/100 WBC (Bld) 23.9 % Normal 20.5-60.0 [facility] Comment on above: Performed By: #### C BC ####[facility] Ixbhrjqppf4849 [place] [address]Dr. Tadeo Smyth MANUAL DIFF REQ NO Normal [facility] Comment on above: Performed By: #### C BC ####[facility] Nacnbgrnoh6124 [place] [address]Dr. Margotnicole Symth MCH (RBC) [Entitic mass] 29.8 pg Normal 26.7-34.0 [facility] Comment on above: Performed By: #### C BC ####[facility] Ogwuujcqgj818[address] [place], [place] [address]Dr. Tadeo Smyth MCHC (RBC) [Mass/Vol] 33.2 g/dL Normal 29.9-35.2 [facility] Comment on above: Performed By: #### C BC ####[facility] Imjxckvhip48[address] [place], [place] [address]Dr. Margotnicole Smyth MCV (RBC) [Entitic vol] 89.8 fL Normal 81.0-99.0 [facility] Comment on above: Performed By: #### C BC ####[facility] Tkgkvpmjdm740[address] [place], [place] [address]Dr. Tadeo Smyth MONO # 0.3 103/ul Normal 0.3-0.8 [facility] Comment on above: Performed By: #### C BC ####[facility] Cmmdztacpx5507[address] [place], [place] [address]Dr. Tadeo Smyth Monocytes/100 WBC (Bld) 5.2 % Normal 1.7-12.0 [facility] Comment on above: Performed By: #### C BC ####[facility] Pmqkeuvfbz854[address] [place], [place] [address]Dr. Tadeo Smyth NEUT # 3.6 103/ul Normal 1.4-6.5 [facility] Comment on above: Performed By: #### C BC ####[facility] Yailurrfua3779 [place] [address]Dr. Tadeo Smyth Neutrophils/100 WBC (Bld) 68.4 % Normal 43.0-75.0 [facility] Comment on above: Performed By: #### C BC ####[facility] Pyzplijfig1892 [place] [address]Dr. Tadeo Smyth Platelet mean volume (Bld) [Entitic vol] 9.0 fL Critically low 9.5-13.5 [facility] Comment on above: Performed By: #### C BC ####[facility] Napxzsbuxp2505[address] [place], [place] [address]Dr. Tadeo Smyth PLT 356 103/ul Normal 150-450 [facility] Comment on above: Performed By: #### C BC ####[facility] Gvxodqrawh4179[address] [place], [place] [address]Dr. Tadeo Smyth RBC 4.20 106/ul Normal 4.20-5.40 [facility] Comment on above: Performed By: #### C BC ####[facility] Lcwsfhjboj05[address] [place], [place] [address]Dr. Tadeo Smyth WBC 5.2 103/ul Normal 4.0-11.0 [facility] Comment on above: Performed By: #### C BC ####[facility] Vdjsrcdnzr[address] [place], [place] [address]Dr. Tadeo Smy[address] CT ABD/PELV W CONon 11-01-[address] ABD/PELV W CON Normal [facility] CULTURE BLOODon 11-01-2022 Microscopic examination of blood, culture Culture Observations: NO GROWTH AT 5 DAYS. Isolate 1 BC_BA_NA Normal [facility] Comment on above: Performed By: #### B LDCX2 ####[facility] Opymoxcdev17[address] [place], [place] [address]Dr. Tadeo Smyth Performed By: #### B LDCX1 ####[facility] Gynxxmosts[address] [place], [place] [address]Dr. Tadeo Smyth CULTURE URINEon 11-01-2022 CULTURE URINE Culture Observations : LIGHT GROWTH OF MIXED GENITAL SINTIA. NO POTENTIAL PATHOGENS SEEN. Normal [facility] Comment on above: Performed By: #### U RCX ####[facility] Nbrqmcpawd69[address] [place], [place] [address]Dr. Tadeo Smyth Covid-19 PCR (CVDTB)on 10-07 SARS-CoV-2 (COVID-19) RNA CHEN+probe Ql (Unsp spec) Not detected Normal NOT DETECTED [facility] Comment on above: Result Comment: When diagnostic [...] for this test is supported by the [place] of Health and Human Service's declaration that [...] be used). Performed By: #### C VDTBH ####[facility] Qhpacdhyag[address] [place], [place] [address]Dr. Tadeo Haja LACTATE/LACTIC ACIDon 2022 Lactate [Moles/Vol] 0.7 mmol/L Normal 0.4-1.9 [facility] Comment on above: Performed By: #### L ACT ####[facility] Easwmpoqbd[address] [place], [place] [address]Dr. Margotnicole Smyth LIPASEon 11-01-2022 Lipase [Catalytic activity/Vol] 58.0 U/L Critically low 73.0-393.0 [facility] Comment on above: Performed By: #### M G, VIJI, LIPA, CMP ####[facility] Gofwizrsig[address] [place], [place] [address]Dr. Margotnicole Smyth MAGNESIUMon 11-01-2022 Magnesium [Mass/Vol] 2.0 mg/dL Normal 1.8-2.4 [facility] Comment on above: Performed By: #### M Ayan, VIJI, LIPA, CMP ####[facility] Vovvejrxly[address] [place] [address]Dr. Tadeo Smyth PROF 14(COMP METB)on 023 Albumin [Mass/Vol] 3.6 g/dL Normal 3.4-5.0 [facility] Comment on above: Performed By: #### M G, VIJI, LIPA, CMP ####[facility] Ghpogaqejs24[address] [place] [address]Dr. Tadeo Smyth Albumin/Globulin [Mass ratio] 1.0 {ratio} Normal [facility] Comment on above: Performed By: #### M G, VIJI, LIPA, CMP ####[facility] Lqbgmeqtzm15[address] [place] [address]Dr. Tadeo Smyth ALP [Catalytic activity/Vol] 164 U/L Critically high 46-116 [facility] Comment on above: Performed By: #### M G, VIJI, LIPA, CMP ####[facility] Rajyeaenlm4[address] [place] [address]Dr. Tadeo Smyth ALT [Catalytic activity/Vol] 22 U/L Normal 14-59 [facility] Comment on above: Performed By: #### M G, VIJI, LIPA, CMP ####[facility] Yhmhqicymt5603 [place] [address]Dr. Tadeo Smyth Anion gap [Moles/Vol] 11.5 mmol/L Normal [facility] Comment on above: Performed By: #### M G, VIJI, LIPA, CMP ####[facility] Mnybodjwst110[address] [place] [address]Dr. Tadeo Smyth AST [Catalytic activity/Vol] 17 U/L Normal 15-37 [facility] Comment on above: Performed By: #### M G, VIJI, LIPA, CMP ####[facility] Oqphygdgqr4764 [place] [address]Dr. Tadeo Smyth Bilirubin [Mass/Vol] 0.4 mg/dL Normal 0.2-1.0 [facility] Comment on above: Performed By: #### M Ayan, VIJI LIPA, CMP ####[facility] Rgahvihhkt3[address] [place] [address]Dr. Tadeo Smyth Calcium [Mass/Vol] 9.1 mg/dL Normal 8.5-10.1 [facility] Comment on above: Performed By: #### M Ayan, VIJI LIPA, CMP ####[facility] Odppq[address]kaic[address] [place], [place] [address]Dr. Tadeo Smyth Chloride [Moles/Vol] 105 mmol/L Normal 98-107 [facility] Comment on above: Performed By: #### M Ayan, VIJI LIPA, CMP ####[facility] Bukevmraiw[address] [place], [place] [address]Dr. Tadeo Smyth CO2 [Moles/Vol] 27.6 mmol/L Normal 21.0-32.0 [facility] Comment on above: Performed By: #### Clementina Botello, VIJI LIPA, CMP ####[facility] Omkrdrrrpk[address] [place], [place] [address]Dr. Tadeo Smyth Creatinine [Mass/Vol] 0.72 mg/dL Normal 0.55-1.02 [facility] Comment on above: Performed By: #### M Ayan, VIJI, LIPA, CMP ####[facility] Wtoagnfymx[address] [place], [place] [address]Dr. Tadeo Smyth EGFR-AF TOGOLESE >60 Normal >=60 [facility] Comment on above: Performed By: #### M Ayan, VIJI, LIPA, CMP ####[facility] Raljrnqmem[address] [place], [place] [address]Dr. Tadeo Smyth EGFR-NON AF TOGOLESE >60 Normal >=60 [facility] Comment on above: Performed By: #### M Ayan, VIJI, LIPA, CMP ####[facility] Cerksmvpiy50[address] [place] [address]Dr. Tadeo Smyth Globulin (S) [Mass/Vol] 3.6 g/dL Normal [facility] Comment on above: Performed By: #### M G, VIJI, LIPA, CMP ####[facility] Xhuehqyuhp16[address] [place] [address]Dr. Tadeo Smyth Glucose [Mass/Vol] 100 mg/dL Normal 74-106 [facility] Comment on above: Performed By: #### M G, VIJI, LIPA, CMP ####[facility] Yhdddciucj3586 [place] [address]Dr. Tadeo Smyth Potassium [Moles/Vol] 4.1 mmol/L Normal 3.5-5.1 [facility] Comment on above: Performed By: #### M G, VIJI, LIPA, CMP ####[facility] Sbdlpnljze2[address] [place] [address]Dr. Tadeo Smyth Protein [Mass/Vol] 7.2 g/dL Normal 6.4-8.2 [facility] Comment on above: Performed By: #### M G, VIJI, LIPA, CMP ####[facility] Ymhsinatgr6161 [place] [address]Dr. Tadeo Smyth Sodium [Moles/Vol] 140 mmol/L Normal 136-145 [facility] Comment on above: Performed By: #### M G, VIJI, LIPA, CMP ####[facility] Humwxisusw2961 [place] [address]Dr. Tadeo Smyth Urea nitrogen [Mass/Vol] 15.0 mg/dL Normal 7.0-18.0 [facility] Comment on above: Performed By: #### M G, VIJI, LIPA, CMP ####[facility] Fcviczwkml5876 [place] [address]Dr. Margotnicole Haja Urea nitrogen/Creatinine [Mass ratio] 20.8 mg/mg Normal [facility] Comment on above: Performed By: #### M G, VIJI, LIPA, CMP ####[facility] Oobhthttmz16[address] [place] [address]Dr. Tadeo Smyth UA RANDOM W/MICROSCOPICon BACTERIA TRACE Abnormal NONE SEEN [facility] Comment on above: Performed By: #### U AMIC ####[facility] Fpqcighnuq85[address] [place] [address]Dr. Tadeo Smyth Bilirubin Ql (U) Negative Normal NEGATIVE [facility] Comment on above: Performed By: #### U AMIC ####[facility] Hjazbhilxl[address] [place], [place] [address]Dr. Tadeo Smyth CAST NONE SEEN Normal NONE SEEN [facility] Comment on above: Performed By: #### U AMIC ####[facility] Ocdgnepial[address] [place], [place] [address]Dr. Tadeo Smyth Clarity (U) CLEAR Normal CLEAR [facility] Comment on above: Performed By: #### U AMIC ####[facility] Ncohowxcrb[address] [place], [place] [address]Dr. Tadeo Smyth Color (U) LT. YELLOW Normal YELLOW [facility] Comment on above: Performed By: #### U AMIC ####[facility] Rntopeglrk117[address] [place], [place] [address]Dr. Tadeo Smyth Crystals LM Nom (Urine sed) NONE SEEN Normal NONE SEEN [facility] Comment on above: Performed By: #### U AMIC ####[facility] Supvysvdnl[address] [place], [place] [address]Dr. Tadeo Smyth Epithelial cells LM Ql (Urine sed) RARE Normal NONE SEEN /RARE [facility] Comment on above: Performed By: #### U AMIC ####[facility] Yhkdabwlaz[address] [place], [place] [address]Dr. Tadeo Smyth Glucose Ql (U) Negative Normal NEGATIVE [facility] Comment on above: Performed By: #### U AMIC ####[facility] Uotyqrqjcv[address] [place], [place] [address]Dr. Tadeo Smyth Hemoglobin Ql (U) TRACE-LYSED Abnormal NEGATIVE [facility] Comment on above: Performed By: #### U AMIC ####[facility] Wwulasqczs[address] [place], [place] [address]Dr. Tadeo Smyth Ketones Ql (U) Negative Normal NEGATIVE [facility] Comment on above: Performed By: #### U AMIC ####[facility] Wzsbrzhzie[address] [place], [place] [address]Dr. Tadeo Smyth LEUKOCYTES Negative Normal NEGATIVE [facility] Comment on above: Performed By: #### U AMIC ####[facility] Jwlqojfjln7646 [place] [address]Dr. Margotnicole Haja MUCOUS NONE SEEN Normal NONE SEEN [facility] Comment on above: Performed By: #### U AMIC ####[facility] Lhxeetqcma3359 [place] [address]Dr. Tadeo Smyth Nitrite Ql (U) Negative Normal NEGATIVE [facility] Comment on above: Performed By: #### U AMIC ####[facility] Pchuaqauwa[address] [place], [place] [address]Dr. Tadeo Smyth pH (U) 6.0 [pH] Normal 5-9 [facility] Comment on above: Performed By: #### U AMIC ####[facility] Dqyqsxaybz[address] [place], [place] [address]Dr. Tadeo Smyth RBC 0-2 Normal 0-2 [facility] Comment on above: Performed By: #### U AMIC ####[facility] Mabosxshlb[address] [place], [place] [address]Dr. Tadeo Smyth SPEC GRAVITY 1.010 Normal 1.005-<=1.0 25 [facility] Comment on above: Performed By: #### U AMIC ####[facility] Kdipvuldyq[address] [place], [place] [address]Dr. Tadeo Smyth UA PROTEIN Negative Normal NEGATIVE/ TRACE [facility] Comment on above: Performed By: #### U AMIC ####[facility] Uwkqrpzxjc[address] [place], [place] [address]Dr. Tadeo Smyth Urobilinogen Qn (U) 0.2 {Benito'U}/dL Normal 0.2 - 1. 0 [facility] Comment on above: Performed By: #### U AMIC ####[facility] Hsfaimbcul[address] [place], [place] [address]Dr. Tadeo Smyth WBC 0-2 Abnormal NONE SEEN [facility] Comment on above: Performed By: #### U AMIC ####[facility] Jjhquiyukw[address] [place], [place] [address]Dr. Tadeo Smyth Activated partial thrombopla stin time (aPTT) in platelet poor plasma by coagulation aOrdered By: Conner Griffith on 10-26-2022 aPTT Coag (PPP) [Time] 30.8 s 25.1-36.5 [facility] Albumin [Mass/volume] in Ser um or PlasmaOrdered By: Conner Griffith on 10-26-2022 Albumin [Mass/Vol] 3.6 g/dL 3.2-5.5 [facility] Automated erythrocytes count in urine sediment (number/area)Ordered By: Conner Griffith on 10-26-2022 RBC Auto (Urine sed) [#/Area] 0-1 [HPF] 0-4 [facility] Automated leukocytes count i n urine sediment (number/area)Ordered By: Conner Griffith on 10-26-2022 WBC Auto (Urine sed) [#/Area] None seen [HPF] 0-4 [facility] Basophils Auto (Bld) [#/Vol] Ordered By: Conner Griffith on 10-26-2022 Basophils (Bld) [#/Vol] 0.0 10*3/uL 0.0-0.2 [facility] Basophils/100 WBC Auto (Bld) Ordered By: Conner Griffith on 10-26-2022 Basophils/100 WBC (Bld) 0.6 % . [facility] Bilirubin Test strip Ql (U)O rdered By: Conner Griffith on 10-26-2022 Bilirubin Ql (U) Negative Negative [facility] CT abdomen pelvis w conon CT abdomen pelvis w con [facility] [place] [address] CT Scan Report Signed Patient: Constantino Cardoso MR#: [id number] : 1970 Acct:[id number] Age/Sex: 52 / F ADM Date: 10/26/22 Loc: ER Room: Type: [facility] ER Attending Dr: Copies to: Conner Griffith [...] Columba Domínguez M.D.10/26/2022 7:46 AM Dictation Location: [place] [address] Transcribed By: [facility] 10/26/22 0746 Dictated By: Columba Domínguez MD 10/26/22 0738 Signed By: 10/26/22 0746 Normal [facility] Color Auto (U)Ordered By: Kevin Griffith on 10-26-2022 Color (U) Yellow Yellow [facility] Complete Blood Count Auto Di ffon 10-26-2022 Basophils (Bld) [#/Vol] 0.0 10*3/uL Normal 0.0-0.2 [facility] Comment on above: Result Comment: PERF ORMED BY: [place] [address] PATHOLOGIST GATHERING WORKER ROOSEVELT KEYES M.D. Performed By: #### H EPATIC, CBC, BMP, LIPASE #### [address] Basophils/100 WBC (Bld) 0.6 % Normal . [facility] Comment on above: Performed By: #### H EPATIC, CBC, BMP, LIPASE #### [address] Eosinophils (Bld) [#/Vol] 0.2 10*3/uL Normal 0.0-0.45 [facility] Comment on above: Performed By: #### H EPATIC, CBC, BMP, LIPASE #### [address] Eosinophils/100 WBC (Bld) 3.3 % Normal . [facility] Comment on above: Performed By: #### H EPATIC, CBC, BMP, LIPASE #### [address] Erythrocyte distribution width (RBC) [Ratio] 14.5 % Normal 11.9-15.3 [facility] Comment on above: Performed By: #### H EPATIC, CBC, BMP, LIPASE #### [address] Hematocrit (Bld) [Volume fraction] 36.7 % Normal 34.0-46.4 [facility] Comment on above: Performed By: #### H EPATIC, CBC, BMP, LIPASE #### [address] Hemoglobin (Bld) [Mass/Vol] 12.1 g/dL Normal 11.8-15.4 [facility] Comment on above: Performed By: #### H EPATIC, CBC, BMP, LIPASE #### [address] Lymphocytes (Bld) [#/Vol] 1.9 10*3/uL Normal 1.00-4.8 [facility] Comment on above: Performed By: #### H EPATIC, CBC, BMP, LIPASE #### [address] Lymphocytes/100 WBC (Bld) 29.7 % Normal . [facility] Comment on above: Performed By: #### H EPATIC, CBC, BMP, LIPASE #### [address] MCH (RBC) [Entitic mass] 29.3 pg Normal 24.7-34.3 [facility] Comment on above: Performed By: #### H EPATIC, CBC, BMP, LIPASE #### [address] MCV (RBC) [Entitic vol] 88.5 fL Normal 80-100 [facility] Comment on above: Performed By: #### H EPATIC, CBC, BMP, LIPASE #### [address] Mean Corpuscular HGB Conc 33.1 g/dL Normal 32.0-35.0 [facility] Comment on above: Performed By: #### H EPATIC, CBC, BMP, LIPASE #### [address] Monocytes (Bld) [#/Vol] 0.4 10*3/uL Normal 0.0-0.8 [facility] Comment on above: Performed By: #### H EPATIC, CBC, BMP, LIPASE #### [address] Monocytes/100 WBC (Bld) 16.27 % Normal 0.00-20.00 [facility] Comment on above: Performed By: #### H EPATIC, CBC, BMP, LIPASE #### [address] Monocytes/100 WBC (Bld) 7.1 % Normal . [facility] Comment on above: Performed By: #### H EPATIC, CBC, BMP, LIPASE #### [address] Neutrophils (Bld) [#/Vol] 3.7 10*3/uL Normal 1.8-7.7 [facility] Comment on above: Performed By: #### H EPATIC, CBC, BMP, LIPASE #### [address] Neutrophils/100 WBC (Bld) 59.3 % Normal . [facility] Comment on above: Performed By: #### H EPATIC, CBC, BMP, LIPASE #### [address] NRBC% 0.3 /100{WBC} Normal 0-0.5 [facility] Comment on above: Performed By: #### H EPATIC, CBC, BMP, LIPASE #### [address] Platelet mean volume (Bld) [Entitic vol] 7.5 fL Normal 6.3-10.7 [facility] Comment on above: Performed By: #### H EPATIC, CBC, BMP, LIPASE #### [address] Platelets (Bld) [#/Vol] 379 10*3/uL Normal 150-450 [facility] Comment on above: Performed By: #### H EPATIC, CBC, BMP, LIPASE #### [address] RBC (Bld) [#/Vol] 4.14 10*6/uL Normal 3.60-5.00 [facility] Comment on above: Performed By: #### H EPATIC, CBC, BMP, LIPASE #### [address] WBC (Bld) [#/Vol] 6.3 10*3/uL Normal 3.8-11.6 [facility] Comment on above: Performed By: #### H EPATIC, CBC, BMP, LIPASE #### [address] [place] [address] [place] [facility] miranda 10-26-2022 Albumin [Mass/Vol] 3.6 g/dL Normal 3.2-5.5 [facility] Comment on above: Performed By: #### H EPATIC, CBC, BMP, LIPASE #### [facility] [address] Albumin/Globulin [Mass ratio] 1.1 {ratio} Normal [facility] Comment on above: Performed By: #### H EPATIC, CBC, BMP, LIPASE #### [facility] [address] ALP [Catalytic activity/Vol] 121 U/L High 32-92 [facility] Comment on above: Performed By: #### H EPATIC, CBC, BMP, LIPASE #### [facility] [address] [place] [address] ALT [Catalytic activity/Vol] 18 U/L Normal 10-60 [facility] Comment on above: Performed By: #### H EPATIC, CBC, BMP, LIPASE #### [facility] [address] [place] [address] Anion gap [Moles/Vol] 11.3 mmol/L Normal 6.0-15.0 [facility] Comment on above: Performed By: #### H EPATIC, CBC, BMP, LIPASE #### [facility] [address] [place] [address] AST [Catalytic activity/Vol] 19 U/L Normal 10-42 [facility] Comment on above: Performed By: #### H EPATIC, CBC, BMP, LIPASE #### [facility] [address] [place] [address] Bilirubin [Mass/Vol] 0.4 mg/dL Normal 0.3-1.2 [facility] Comment on above: Performed By: #### H EPATIC, CBC, BMP, LIPASE #### [facility] [address] [place] [address] Calcium [Mass/Vol] 8.9 mg/dL Normal 8.2-10.2 [facility] Comment on above: Performed By: #### H EPATIC, CBC, BMP, LIPASE #### [address] Chloride [Moles/Vol] 108 mmol/L Normal 95-114 [facility] Comment on above: Performed By: #### H EPATIC, CBC, BMP, LIPASE #### [address] CO2 [Moles/Vol] 25.1 mmol/L Normal 22.0-30.0 [facility] Comment on above: Performed By: #### H EPATIC, CBC, BMP, LIPASE #### [address] Creatinine [Mass/Vol] 0.81 mg/dL Normal 0.44-1.03 [facility] Comment on above: Performed By: #### H EPATIC, CBC, BMP, LIPASE #### [address] Creatinine Clr Calc Pharmacy 93.01 [facility] Comment on above: Performed By: #### H EPATIC, CBC, BMP, LIPASE #### [address] Estimated GFR ( Roberto > 60 [facility] Comment on above: Result Comment: GFR estimated reference range: According to KDOQI guidelines, <60 ml/min/1.73m2 is sufficient to diagnose a patient with chronic kidney disease. Performed By: #### H EPATIC, CBC, BMP, LIPASE #### [address] Estimated GFR (Non- Am > 60 [facility] Comment on above: Performed By: #### H EPATIC, CBC, BMP, LIPASE #### [address] Globulin (S) [Mass/Vol] 3.2 g/dL [facility] Comment on above: Performed By: #### H EPATIC, CBC, BMP, LIPASE #### [address] Glucose [Mass/Vol] 95 mg/dL Normal 70-100 [facility] Comment on above: Result Comment: [facility] Glucose Reference Range is dependent on time and content of last meal. Glucose of more than 200 mg/dL in a nonstressed, ambulatory subject supports the diagnosis of Diabetes Mellitus. ADA recommended reference range Performed By: #### H EPATIC, CBC, BMP, LIPASE #### [facility] [address] Potassium [Moles/Vol] 3.4 mmol/L Low 3.5-5.1 [facility] Comment on above: Performed By: #### H EPATIC, CBC, BMP, LIPASE #### [address] Protein [Mass/Vol] 6.8 g/dL Normal 6.1-7.9 [facility] Comment on above: Performed By: #### H EPATIC, CBC, BMP, LIPASE #### [address] Sodium [Moles/Vol] 141 mmol/L Normal 136-146 [facility] Comment on above: Performed By: #### H EPATIC, CBC, BMP, LIPASE #### [address] Urea nitrogen [Mass/Vol] 18 mg/dL Normal 9-23 [facility] Comment on above: Performed By: #### H EPATIC, CBC, BMP, LIPASE #### [address] Creatinine and Glomerular fi ltration rate.predicted panel (S/P/Bld)Ordered By: Conner Griffith on 10-26-2022 Creatinine [Mass/Vol] 0.81 mg/dL 0.44-1.03 [facility] Dipstick and Microscopicon 0 10-26-2022 Appearance (U) Clear Normal Clear [facility] Comment on above: Order Comment: Name Collection Type:: Clean-Voided Midstream Performed By: #### H EPATIC, CBC, BMP, LIPASE #### [address] Bacteria,Urine None Seen Normal None Seen [facility] Comment on above: Order Comment: Name Collection Type:: Clean-Voided Midstream Performed By: #### H EPATIC, CBC, BMP, LIPASE #### [facility] [address] [place] [address] Bilirubin,Urine Negative Normal Negative [facility] Comment on above: Order Comment: Name Collection Type:: Clean-Voided Midstream Performed By: #### H EPATIC, CBC, BMP, LIPASE #### [facility] [address] [place] [address] Color (U) Yellow Normal Yellow [facility] Comment on above: Order Comment: Name Collection Type:: Clean-Voided Midstream Performed By: #### H EPATIC, CBC, BMP, LIPASE #### [address] Glucose Ql (U) Normal Normal Normal [facility] Comment on above: Order Comment: Name Collection Type:: Clean-Voided Midstream Performed By: #### H EPATIC, CBC, BMP, LIPASE #### [address] Hyaline Casts,Urine None Seen Normal 0-8 [facility] Comment on above: Order Comment: Name Collection Type:: Clean-Voided Midstream Result Comment: PERF ORMED BY: [place] [address] PATHOLOGIST GATHERING WORKER ROOSEVELT KEYES M.D. Performed By: #### H EPATIC, CBC, BMP, LIPASE #### [facility] [address] [place] [address] Ketones Ql (U) Negative Normal Negative [facility] Comment on above: Order Comment: Name Collection Type:: Clean-Voided Midstream Performed By: #### H EPATIC, CBC, BMP, LIPASE #### [facility] [address] [place] [address] Leukocyte esterase Test strip Ql (U) 1+ High Negative [facility] Comment on above: Order Comment: Name Collection Type:: Clean-Voided Midstream Performed By: #### H EPATIC, CBC, BMP, LIPASE #### [address] Nitrite,Urine Negative Normal Negative [facility] Comment on above: Order Comment: Name Collection Type:: Clean-Voided Midstream Performed By: #### H EPATIC, CBC, BMP, LIPASE #### [address] Occult Blood,Urine Negative Normal Negative [facility] Comment on above: Order Comment: Name Collection Type:: Clean-Voided Midstream Result Comment: PERF ORMED BY: [place] [address] PATHOLOGIST GATHERING WORKER ROOSEVELT KEYES M.D. Performed By: #### H EPATIC, CBC, BMP, LIPASE #### [address] pH (U) 6.5 [pH] Normal 5.0-9.0 [facility] Comment on above: Order Comment: Name Collection Type:: Clean-Voided Midstream Performed By: #### H EPATIC, CBC, BMP, LIPASE #### [address] Protein,Urine Negative Normal Negative [facility] Comment on above: Order Comment: Name Collection Type:: Clean-Voided Midstream Performed By: #### H EPATIC, CBC, BMP, LIPASE #### [address] RBC LM.HPF (Urine sed) [#/Area] 0 /[HPF] Normal 0-4 [facility] Comment on above: Order Comment: Name Collection Type:: Clean-Voided Midstream Performed By: #### H EPATIC, CBC, BMP, LIPASE #### [address] Specificy [place],Urine 1.019 Normal 1.001-1.030 [facility] Comment on above: Order Comment: Name Collection Type:: Clean-Voided Midstream Performed By: #### H EPATIC, CBC, BMP, LIPASE #### [address] [address] [place] Squamous Epithelial Cell,Urine 1-2 Normal 0-2 [facility] Comment on above: Order Comment: Name Collection Type:: Clean-Voided Midstream Performed By: #### H EPATIC, CBC, BMP, LIPASE #### [facility] [address] Urobilinogen,Urine Normal Normal Normal [facility] Comment on above: Order Comment: Name Collection Type:: Clean-Voided Midstream Performed By: #### H EPATIC, CBC, BMP, LIPASE #### [facility] [address] WBC,Urine None Seen Normal 0-4 [facility] Comment on above: Order Comment: Name Collection Type:: Clean-Voided Midstream Performed By: #### H EPATIC, CBC, BMP, LIPASE #### [facility] [address] [place] [address] Eosinophils Auto (Bld) [#/Vo l]Ordered By: Conner Griffith on 10-26-2022 Eosinophils (Bld) [#/Vol] 0.2 10*3/uL 0.0-0.45 [facility] Eosinophils/100 WBC Auto (Bl d)Ordered By: Conner Griffith on 10-26-2022 Eosinophils/100 WBC (Bld) 3.3 % . [facility] Erythrocyte distribution wid th Auto (RBC) [Ratio]Ordered By: Conner Griffith on 10-26-2022 Erythrocyte distribution width (RBC) [Ratio] 14.5 % 11.9-15.3 [facility] Estimated glomerular filtrat ion rate (GFR) non- AmericanOrdered By: Conner Griffith on 10-26-2022 GFR/1.73 sq M.predicted among non-blacks MDRD (S/P/Bld) [Vol rate/Area] > 60 mL/Min [facility] Globulin Calc (S) [Mass/Vol] Ordered By: Conner Griffith on 10-26-2022 Globulin (S) [Mass/Vol] 3.2 g/dL [facility] Hematocrit Auto (Bld) [Volum e fraction]Ordered By: Conner Griffith on 10-26-2022 Hematocrit (Bld) [Volume fraction] 36.7 % 34.0-46.4 [facility] Hemoglobin [Mass/volume] in BloodOrdered By: Conner Griffith on 10-26-2022 Hemoglobin (Bld) [Mass/Vol] 12.1 g/dL 11.8-15.4 [facility] Ketones Auto test strip (U) [Mass/Vol]Ordered By: Conner Griffith on 10-26-2022 Ketones (U) [Mass/Vol] Negative Negative [facility] - Chemistry and C hemistry - challengeOrdered By: Conner Griffith on 10-26-2022 Lipase [Catalytic activity/Vol] 37.0 U/L [facility] - CoagulationOrde red By: Conner Griffith on 10-26-2022 PT Coag (PPP) [Time] 10.6 s 9.0-12.9 [facility] - UrinalysisOrder ed By: Conner Griffith on 10-26-2022 Hyaline casts LM Ql (Urine sed) None seen [LPF] 0-8 [facility] Lactic Acidon 10-26-2022 Lactate [Moles/Vol] 1.0 mmol/L Normal 0.5-2.2 [facility] Comment on above: Result Comment: PERF ORMED BY: [place] [address] PATHOLOGIST GATHERING WORKER ROOSEVELT KEYES M.D. Performed By: #### H EPATIC, CBC, BMP, LIPASE #### [address] Leukocytes [#/volume] correc jun for nucleated erythrocytes in Blood by Automated counOrdered By: Conner Griffith on 10-26-2022 WBC corrected for nucl RBC Auto (Bld) [#/Vol] 6.3 10*3/uL 3.8-11.6 [facility] Lipaseon 10-26-2022 Lipase [Catalytic activity/Vol] 37.0 U/L Normal [facility] Comment on above: Result Comment: PERF ORMED BY: [address] [address] PATHOLOGIST GATHERING WORKER ROOSEVELT KEYES M.D. Performed By: #### H EPATIC, CBC, BMP, LIPASE #### [facility] [address] Lymphocytes Auto (Bld) [#/Vo l]Ordered By: Conner Griffith on 10-26-2022 Lymphocytes (Bld) [#/Vol] 1.9 10*3/uL 1.00-4.8 [facility] Lymphocytes/100 WBC Auto (Bl d)Ordered By: Conner Griffith on 10-26-2022 Lymphocytes/100 WBC (Bld) 29.7 % . [facility] MCH Auto (RBC) [Entitic mass ]Ordered By: Conner Griffith on 10-26-2022 MCH (RBC) [Entitic mass] 29.3 pg 24.7-34.3 [facility] MCHC Auto (RBC) [Mass/Vol]Or dered By: Conner Griffith on 10-26-2022 MCHC (RBC) [Mass/Vol] 33.1 g/dL 32.0-35.0 [facility] MCV Auto (RBC) [Entitic vol] Ordered By: Conner Griffith on 10-26-2022 MCV (RBC) [Entitic vol] 88.5 fL 80-100 [facility] Monocyte distribution width [Entitic volume] in Blood by AutomatedOrdered By: Conner Griffith on 10-26-2022 Monocyte distribution width Auto (Bld) [Entitic vol] 16.27 % 0.00-20.00 [facility] Monocytes Auto (Bld) [#/Vol] Ordered By: Conner Griffith on 10-26-2022 Monocytes (Bld) [#/Vol] 0.4 10*3/uL 0.0-0.8 [facility] Monocytes/100 WBC Auto (Bld) Ordered By: Conner Griffith on 10-26-2022 Monocytes/100 WBC (Bld) 7.1 % . [facility] Neutrophils Auto (Bld) [#/Vo l]Ordered By: Conner Griffith on 10-26-2022 Neutrophils (Bld) [#/Vol] 3.7 10*3/uL 1.8-7.7 [facility] Neutrophils/100 WBC Auto (Bl d)Ordered By: Conner Griffith on 10-26-2022 Neutrophils/100 WBC (Bld) 59.3 % . [facility] Nitrite Test strip Ql (U)Ord ered By: Conner Griffith on 10-26-2022 Nitrite Ql (U) Negative Negative [facility] No Panel InformationOrdered By: Conner Griffith on 10-26-2022 Estimated GFR () > 60 mL/Min [facility] Comment on above: GFR estimated refere nce range: According to KDOQI guidelines, <60 ml/min/1.73m2 is sufficient to diagnose a patient with chronic kidney disease. Pharmacy Creatinine Clearance (Chem 93.01 [facility] Nucleated erythrocytes [Pres ence] in Blood by Automated countOrdered By: Conner Griffith on 10-26-2022 Nucleated RBC Auto Ql (Bld) 0.3 /100{WBC} 0-0.5 [facility] Partial Thromboplastin Timeo n 10-26-2022 aPTT Coag (Bld) [Time] 30.8 s Normal 25.1-36.5 [facility] Comment on above: Result Comment: PERF ORMED BY: [place] [address] PATHOLOGIST GATHERING WORKER ROOSEVELT KEYES M.D. Performed By: #### H EPATIC, CBC, BMP, LIPASE #### [address] Platelet mean volume Auto (B ld) [Entitic vol]Ordered By: Conner Griffith on 10-26-2022 Platelet mean volume (Bld) [Entitic vol] 7.5 fL 6.3-10.7 [facility] Platelet poor plasma interna tional normalized ratio (INR) by coagulation assay (relatOrdered By: Conner Griffith on 10-26-2022 INR Coag (PPP) [Relative time] 0.9 {INR} [facility] Comment on above: INR Therapeutic Rang [...] 10-26-2022 Platelets (Bld) [#/Vol] 379 10*3/uL 150-450 [facility] Protein Auto test strip (U) [Mass/Vol]Ordered By: Conner Griffith on 10-26-2022 Protein (U) [Mass/Vol] Negative Negative [facility] Protein [Mass/volume] in Ser um or PlasmaOrdered By: Conner Griffith on 10-26-2022 Protein [Mass/Vol] 6.8 g/dL 6.1-7.9 [facility] Prothrombin Time INRon 10-26 INR Coag (PPP) [Relative time] 0.9 {INR} Normal [facility] Comment on above: Result Comment: INR [...] #### H EPATIC, CBC, BMP, LIPASE #### [facility] [address] [place] [address] [place] PT Coag (PPP) [Time] 10.6 s Normal 9.0-12.9 [facility] Comment on above: Performed By: #### H EPATIC, CBC, BMP, LIPASE #### [facility] [address] [place] [address] [place] RBC Auto (Bld) [#/Vol]Ordere d By: Conner Griffith on 10-26-2022 RBC (Bld) [#/Vol] 4.14 10*6/uL 3.60-5.00 [facility] Serum or plasma alanine cooley otransferase measurement without P-5'-P (enzymatic activiOrdered By: Conner Griffith on 10-26-2022 ALT No additional P-5'-P [Catalytic activity/Vol] 18 U/L 10-60 [facility] Serum or plasma albumin/glob ulin mass ratioOrdered By: Conner Griffith on 10-26-2022 Albumin/Globulin [Mass ratio] 1.1 {ratio} [facility] Serum or plasma alkaline augustin sphatase measurement (enzymatic activity/volume)Ordered By: Conner Griffith on 10-26-2022 ALP [Catalytic activity/Vol] 121 U/L 32-92 [facility] Serum or plasma anion gap de terminationOrdered By: Conner Griffith on 10-26-2022 Anion gap [Moles/Vol] 11.3 mmol/L 6.0-15.0 [facility] Serum or plasma aspartate am inotransferase measurement (enzymatic activity/volume)Ordered By: Conner Griffith on 10-26-2022 AST [Catalytic activity/Vol] 19 U/L 10-42 [facility] Serum or plasma calcium julee urement (mass/volume)Ordered By: Conner Griffith on 10-26-2022 Calcium [Mass/Vol] 8.9 mg/dL 8.2-10.2 [facility] Serum or plasma chloride julio surement (moles/volume)Ordered By: Conner Griffith on 10-26-2022 Chloride [Moles/Vol] 108 mmol/L 95-114 [facility] Serum or plasma glucose julee urement (mass/volume)Ordered By: Conner Griffith on 10-26-2022 Glucose [Mass/Vol] 95 mg/dL 70-100 [facility] Comment on above: ADA recommended refe rence rangeRandom Glucose Reference Range is dependent on time and content of last meal. Glucose of more than 200 mg/dL in a nonstressed, ambulatory subject supports the diagnosis of Diabetes Mellitus. Serum or plasma potassium me asurement (moles/volume)Ordered By: Conner Griffith on 10-26-2022 Potassium [Moles/Vol] 3.4 mmol/L 3.5-5.1 [facility] Serum or plasma sodium measu rement (moles/volume)Ordered By: Conner Griffith on 10-26-2022 Sodium [Moles/Vol] 141 mmol/L 136-146 [facility] Serum or plasma total biliru bin measurement (mass/volume)Ordered By: Conner Griffith on 10-26-2022 Bilirubin [Mass/Vol] 0.4 mg/dL 0.3-1.2 [facility] Serum or plasma total carbon dioxide measurement (moles/volume)Ordered By: Conner Griffith on 10-26-2022 CO2 [Moles/Vol] 25.1 mmol/L 22.0-30.0 [facility] Serum or plasma urea nitroge n measurement (mass/volume)Ordered By: Conner Griffith on 10-26-2022 Urea nitrogen [Mass/Vol] 18 mg/dL 9-23 [facility] Specific gravity Auto test s trip (U) [Rel density]Ordered By: Conner Griffith on 10-26-2022 Specific gravity (U) [Rel density] 1.019 1.001-1.030 [facility] Squamous epithelial cells de tection in urine sediment by light microscopyOrdered By: Conner Griffith on 10-26-2022 Epithelial cells.squamous LM Ql (Urine sed) 1-2 [HPF] 0-2 [facility] Urine bacteria detection by automated methodOrdered By: Conner Griffith on 10-26-2022 Bacteria Auto Ql (U) None seen None Seen [facility] Urine clarity by refractomet ry automatedOrdered By: Conner Griffith on 10-26-2022 Clarity Refractometry automated (U) Clear Clear [facility] Urine glucose measurement by automated test strip (mass/volume)Ordered By: Conner Griffith on 10-26-2022 Glucose Auto test strip (U) [Mass/Vol] Normal mg/dL Normal [facility] Urine hemoglobin detection b y automated test stripOrdered By: Conner Griffith on 10-26-2022 Hemoglobin Auto test strip Ql (U) Negative Negative [facility] Urine lactic acid measuremen tOrdered By: Conner Griffith on 10-26-2022 Lactate (U) [Moles/Vol] 1.0 mmol/L 0.5-2.2 [facility] Urine leukocyte esterase det ection by automated test stripOrdered By: Conner Griffith on 10-26-2022 Leukocyte esterase Auto test strip Ql (U) 1+ Negative [facility] Urobilinogen Auto test strip (U) [Mass/Vol]Ordered By: Conner Griffith on 10-26-2022 Urobilinogen (U) [Mass/Vol] Normal mg/dL Normal [facility] WBC Auto (Bld) [#/Vol]Ordere d By: Conner Griffith on 10-26-2022 WBC (Bld) [#/Vol] 6.3 10*3/uL 3.8-11.6 [facility] pH Auto test strip (U)Ordere d By: Conner Griffith on 10-26-2022 pH (U) 6.5 [pH] 5.0-9.0 [facility] Auth for Release of Medical Recordson 10-25-2022 Auth for Release of Medical Records [id number]:127 Normal [facility] CBC AUTO DIFFon 09-21-2022 BASO # 0.0 103/ul Normal 0.0-0.1 [facility] Comment on above: Performed By: #### C BC ####[facility] [address] [place], [place] [address]Dr. Tadeo Smyth Basophils/100 WBC (Bld) 0.4 % Normal 0.2-2.0 [facility] Comment on above: Performed By: #### C BC ####[facility] Vlhc[address]wa[address] [place], [place] [address]Dr. Tadeo Smyth EO # 0.1 103/ul Normal 0.0-0.7 [facility] Comment on above: Performed By: #### C BC ####[facility] Kidqfnetih67[address] [place], [place] [address]Dr. Tadeo Smyth Eosinophils/100 WBC (Bld) 1.8 % Normal 0.9-7.0 [facility] Comment on above: Performed By: #### C BC ####[facility] Vqqjsghwdj[address] [place], [place] [address]Dr. Tadeo Smyth Erythrocyte distribution width (RBC) [Ratio] 13.8 % Normal 11.0-15.0 [facility] Comment on above: Performed By: #### C BC ####[facility] [address] [place] [address]Dr. Tadeo Smyth Hematocrit (Bld) [Volume fraction] 41.0 % Normal 36.0-48.0 [facility] Comment on above: Performed By: #### C BC ####[facility] Eytqlipxhu[address] [place], [place] [address]DrNeo Tadeo Smyth Hemoglobin (Bld) [Mass/Vol] 13.3 g/dL Normal 12.0-16.0 [facility] Comment on above: Performed By: #### C BC ####[facility] Ryidnxgtse[address] [place], [place] [address]DrNeo Smyth IG # 0.01 10e3/ul Normal 0.00-0.03 [facility] Comment on above: Performed By: #### C BC ####[facility] Cffsftcrxp[address] [place], [place] [address]Dr. Margotnicole Smyth IG % 0.1 % Normal 0.0-0.5 [facility] Comment on above: Performed By: #### C BC ####[facility] Aojqbkaq[address] [place], [place] [address]DrNeo Tadeo Smyth LYMPH # 1.7 103/ul Normal 1.2-3.8 [facility] Comment on above: Performed By: #### C BC ####[facility] Rbnfzaufjp[address] [place], [place] [address]DrNeo Margotnicole Smyth Lymphocytes/100 WBC (Bld) 24.8 % Normal 20.5-60.0 [facility] Comment on above: Performed By: #### C BC ####[facility] Kntuojzzvx[address] [place], [place] [address]DrNeo Smyth MANUAL DIFF REQ NO Normal [facility] Comment on above: Performed By: #### C BC ####[facility] Wuwkqwdlan[address] [place], [place] [address]DrNeo Smyth MCH (RBC) [Entitic mass] 29.0 pg Normal 26.7-34.0 [facility] Comment on above: Performed By: #### C BC ####[facility] [address]fefso[address] [place] [address]DrNeo Smyth MCHC (RBC) [Mass/Vol] 32.4 g/dL Normal 29.9-35.2 [facility] Comment on above: Performed By: #### C BC ####[facility] Za[address]bqwzs[address] [place] [address]DrNeo Smyth MCV (RBC) [Entitic vol] 89.3 fL Normal 81.0-99.0 [facility] Comment on above: Performed By: #### C BC ####[facility] Jplqpikdti66[address] [place], [place] [address]DrNeo Smyth MONO # 0.5 103/ul Normal 0.3-0.8 [facility] Comment on above: Performed By: #### C BC ####[facility] Zxgllxlvdl[address] [place], [place] [address]DrNeo Smyth Monocytes/100 WBC (Bld) 6.9 % Normal 1.7-12.0 [facility] Comment on above: Performed By: #### C BC ####[facility] Kwnkskekco[address] [place], [place] [address]DrNeo Smyth NEUT # 4.5 103/ul Normal 1.4-6.5 [facility] Comment on above: Performed By: #### C BC ####[facility] Ffvyftraaj[address] [place], [place] [address]DrNeo Smyth Neutrophils/100 WBC (Bld) 66.0 % Normal 43.0-75.0 [facility] Comment on above: Performed By: #### C BC ####[facility] Hiexztytzi[address] [place], [place] [address]DrNeo Smyth Platelet mean volume (Bld) [Entitic vol] 8.8 fL Critically low 9.5-13.5 [facility] Comment on above: Performed By: #### C BC ####[facility] Nfyomgbkmt[address] [place], [place] [address]DrNeo Smyth PLT 384 103/ul Normal 150-450 [facility] Comment on above: Performed By: #### C BC ####[facility] X[address]hydrac[address] [place] [address]Dr. Tadeo Smyth RBC 4.59 106/ul Normal 4.20-5.40 [facility] Comment on above: Performed By: #### C BC ####[facility] Fqcejepecm[address] [place], [place] [address]Dr. Tadeo Smyth WBC 6.8 103/ul Normal 4.0-11.0 [facility] Comment on above: Performed By: #### C BC ####[facility] Mauansvtbz[address] [place], [place] [address]DrNeo Smyth PROF CHEM 8 (BAS METB)on Anion gap [Moles/Vol] 13.8 mmol/L Normal [facility] Comment on above: Performed By: #### B MP ####[facility] Edmygqejzu[address] [place], [place] [address]DrNeo Smyth Calcium [Mass/Vol] 9.6 mg/dL Normal 8.5-10.1 [facility] Comment on above: Performed By: #### B MP ####[facility] K[address]ajkdwzn[address] [place], [place] [address]DrNeo Smyth Chloride [Moles/Vol] 106 mmol/L Normal 98-107 [facility] Comment on above: Performed By: #### B MP ####[facility] Vrqmazwjam[address] [place], [place] [address]DrNeo Smyth CO2 [Moles/Vol] 25.9 mmol/L Normal 21.0-32.0 [facility] Comment on above: Performed By: #### B MP ####[facility] Kzqvrogpmb[address] [place], [place] [address]Dr. Tadeo Smyth Creatinine [Mass/Vol] 0.92 mg/dL Normal 0.55-1.02 [facility] Comment on above: Performed By: #### B MP ####[facility] Khfbrknpqb[address] [place], [place] [address]DrNeo Smyth EGFR-AF TOGOLESE >60 Normal >=60 [facility] Comment on above: Performed By: #### B MP ####[facility] [address]ztx[address] [place] [id number]. Tadeo Smyth EGFR-NON AF TOGOLESE >60 Normal >=60 [facility] Comment on above: Performed By: #### B MP ####[facility] Zuoxlmxjdb65[address] [place] [address]Dr. Margotnicole Haja Glucose [Mass/Vol] 98 mg/dL Normal 74-106 [facility] Comment on above: Performed By: #### B MP ####[facility] Y[address]vathpwm26[address] [place] [address]Dr. Tadeo Smyth Potassium [Moles/Vol] 3.7 mmol/L Normal 3.5-5.1 [facility] Comment on above: Performed By: #### B MP ####[facility] Ik[address]ryy[address] [place] [address]Dr. Tadeo Smyth Sodium [Moles/Vol] 142 mmol/L Normal 136-145 [facility] Comment on above: Performed By: #### B MP ####[facility] X[address]xcbkuec[address] [place] [address]Dr. Tadeo Haja Urea nitrogen [Mass/Vol] 19.0 mg/dL Critically high 7.0-18.0 [facility] Comment on above: Performed By: #### B MP ####[facility] Osygemyiuv[address] [place] [address]Dr. Tadeo Smyth Urea nitrogen/Creatinine [Mass ratio] 20.7 mg/mg Normal [facility] Comment on above: Performed By: #### B MP ####[facility] Nnxdoynxvh37[address] [place] [address]Dr. Tadeo Haja XR KUB 1 VIEWon 09-21-2022 XR KUB 1 VIEW Normal [facility] Lab Reportson 09-20-2022 Lab Reports [id number]:127 Normal [facility] RAD - CT Reporton 09-20-2022 RAD - CT Report [id number]#[id number]:127 Normal [facility] RAD - MISCon 09-20-2022 RAD - MIS [id number]#[id number]:127 Normal [facility] AMYLASEon 09-18-2022 Amylase [Catalytic activity/Vol] 58 U/L Normal 25-115 [facility] Comment on above: Performed By: #### L IPA, CMP, VIJI ####[facility] Gfpfpyhxfp[address] [place], [place] [address]Dr. Tadeo Smyth CBC AUTO DIFFon 09-18-2022 BASO # 0.0 103/ul Normal 0.0-0.1 [facility] Comment on above: Performed By: #### C BC ####[facility] Obvhydsbya[address] [place], [place] [address]Dr. Tadeo Smyth Basophils/100 WBC (Bld) 0.3 % Normal 0.2-2.0 [facility] Comment on above: Performed By: #### C BC ####[facility] Opiehoagli[address] [place], [place] [address]Dr. Tadeo Smyth EO # 0.1 103/ul Normal 0.0-0.7 [facility] Comment on above: Performed By: #### C BC ####[facility] Wenoigqmux[address] [place], [place] [address]Dr. Tadeo Smyth Eosinophils/100 WBC (Bld) 1.8 % Normal 0.9-7.0 [facility] Comment on above: Performed By: #### C BC ####[facility] Jnaberbfcd[address] [place], [place] [address]Dr. Tadeo Smyth Erythrocyte distribution width (RBC) [Ratio] 13.7 % Normal 11.0-15.0 [facility] Comment on above: Performed By: #### C BC ####[facility] Wmkzojygfe[address] [place], [place] [address]Dr. Tadeo Smyth Hematocrit (Bld) [Volume fraction] 37.4 % Normal 36.0-48.0 [facility] Comment on above: Performed By: #### C BC ####[facility] [address]yyj[address] [place] [id number]. Tadeo Smyth Hemoglobin (Bld) [Mass/Vol] 12.3 g/dL Normal 12.0-16.0 [facility] Comment on above: Performed By: #### C BC ####[facility] [address]uvdmi[address] [place] [address]Dr. Tadeo Smyth IG # 0.02 10e3/ul Normal 0.00-0.03 [facility] Comment on above: Performed By: #### C BC ####[facility] Gmtonmnxpv80[address] [place] [address]Dr. Tadeo Smyth IG % 0.3 % Normal 0.0-0.5 [facility] Comment on above: Performed By: #### C BC ####[facility] Q[address]qj[address]rwqc[address] [place], [place] [address]Dr. Tadeo Smyth LYMPH # 2.2 103/ul Normal 1.2-3.8 [facility] Comment on above: Performed By: #### C BC ####[facility] I[address]aviz[address] [place] [address]Dr. Tadeo Smyth Lymphocytes/100 WBC (Bld) 29.3 % Normal 20.5-60.0 [facility] Comment on above: Performed By: #### C BC ####[facility] S[address]qyzlgomf[address] [place] [address]Dr. Tadeo Smyth MANUAL DIFF REQ NO Normal [facility] Comment on above: Performed By: #### C BC ####[facility] Poartjrkmi[address] [place], [place] [address]Dr. Tadeo Smyth MCH (RBC) [Entitic mass] 29.0 pg Normal 26.7-34.0 [facility] Comment on above: Performed By: #### C BC ####[facility] S[address]fszsgs[address] [place] [id number]. Tadeo Smyth MCHC (RBC) [Mass/Vol] 32.9 g/dL Normal 29.9-35.2 [facility] Comment on above: Performed By: #### C BC ####[facility] [address]hlpjiocq[address] [place] [address]Dr. Tadeo Smyth MCV (RBC) [Entitic vol] 88.2 fL Normal 81.0-99.0 [facility] Comment on above: Performed By: #### C BC ####[facility] Cfpbmzoaso9[address] [place] [address]Dr. Tadeo Smyth MONO # 0.5 103/ul Normal 0.3-0.8 [facility] Comment on above: Performed By: #### C BC ####[facility] Clsbworsor[address] [place], [place] [address]Dr. Tadeo Smyth Monocytes/100 WBC (Bld) 6.4 % Normal 1.7-12.0 [facility] Comment on above: Performed By: #### C BC ####[facility] Iocklvvezn[address] [place], [place] [address]Dr. Tadeo Smyth NEUT # 4.7 103/ul Normal 1.4-6.5 [facility] Comment on above: Performed By: #### C BC ####[facility] Ogeizbekrd[address] [place], [place] [address]Dr. Tadeo Smyth Neutrophils/100 WBC (Bld) 61.9 % Normal 43.0-75.0 [facility] Comment on above: Performed By: #### C BC ####[facility] Afzzndcitp[address] [place], [place] [address]Dr. Tadeo Smyth Platelet mean volume (Bld) [Entitic vol] 9.0 fL Critically low 9.5-13.5 [facility] Comment on above: Performed By: #### C BC ####[facility] Drbmpluuea[address] [place], [place] [address]Dr. Tadeo Smyth PLT 395 103/ul Normal 150-450 [facility] Comment on above: Performed By: #### C BC ####[facility] Fvaraqabtm[address] [place], [place] [address]Dr. Tadeo Smyth RBC 4.24 106/ul Normal 4.20-5.40 [facility] Comment on above: Performed By: #### C BC ####[facility] K[address]fgxsm[address] [place] [address]Dr. Margotnicole Haja WBC 7.6 103/ul Normal 4.0-11.0 [facility] Comment on above: Performed By: #### C BC ####[facility] Vbthzivsrn[address] [place] [address]Dr. Margotnicole Haja CT ABD/PELV W CONon 09-18-[address] ABD/PELV W CON Normal [facility] ER URINE PROFILEon 3 Bilirubin Ql (U) SMALL Abnormal NEGATIVE [facility] Comment on above: Performed By: #### Matthew FRANCISCO UMICRO ####[facility] Hvhkpzjzad[address] [place], [place] [address]Dr. Tadeo Smyth Clarity (U) CLEAR Normal CLEAR [facility] Comment on above: Performed By: #### Matthew FRANCISCO UMICRO ####[facility] [address]uissqsi[address] [place], [place] [address]Dr. Tadeo Smyth Color (U) DK. YELLOW Normal YELLOW [facility] Comment on above: Performed By: #### Matthew FRANCISCO UMICRO ####[facility] Dxsrkcfrax[address] [place], [place] [address]Dr. Tadeo CAMARGOD A micrscopic examina tion will be performed if indicated. Normal [facility] Comment on above: Performed By: #### Matthew FRANCISCO UMICRO ####[facility] Ehzjammagt[address] [place], [place] [address]Dr. Tadeo Smyth Glucose Ql (U) Negative Normal NEGATIVE [facility] Comment on above: Performed By: #### Matthew FRANCISCO UMICRO ####[facility] Ockpnbewyl[address] [place], [place] [address]Dr. Tadeo Smyth Hemoglobin Ql (U) SMALL Abnormal NEGATIVE [facility] Comment on above: Performed By: #### Matthew FRANCISCO UMICRO ####[facility] Ocpgtdkmzu[address] [place], [place] [address]Dr. Tadeo Smyth Ketones Ql (U) Negative Normal NEGATIVE [facility] Comment on above: Performed By: #### KAROL MERCHANT ####[facility] [address]hw[address] [place] [address]Dr. Tadeo Smyth LEUKOCYTES Negative Normal NEGATIVE [facility] Comment on above: Performed By: #### KAROL MERCHANT ####[facility] Rxwcqutgpb[address] [place] [address]Dr. Tadeo Smyth Nitrite Ql (U) Negative Normal NEGATIVE [facility] Comment on above: Performed By: #### KAROL MERCHANT ####[facility] Jrgjxijhrb[address] [place] [address]Dr. Tadeo Smyth pH (U) 5.5 [pH] Normal 5-9 [facility] Comment on above: Performed By: #### KAROL MERCHANT ####[facility] [address]ls[address]ymm[address] [place] [address]Dr. Tadeo Smyth SPEC GRAVITY >=1.030 Abnormal 1.005-<=1.0 25 [facility] Comment on above: Performed By: #### KAROL MERCHANT ####[facility] [address] [place], [place] [address]Dr. Tadeo Smyth UA PROTEIN TRACE Normal NEGATIVE/ TRACE [facility] Comment on above: Performed By: #### KAROL MERCHANT ####[facility] Xu[address]rnrxzb[address] [place] [address]Dr. Tadeo Smyth UR MICRO IND INDICATED Normal [facility] Comment on above: Performed By: #### KAROL MERCHANT ####[facility] Lu[address]brfcm[address] [place], [place] [address]Dr. Tadeo Smyth Urobilinogen Qn (U) 0.2 {Benito'U}/dL Normal 0.2 - 1. 0 [facility] Comment on above: Performed By: #### KAROL MERCHANT ####[facility] Xqxvzzooqs[address] [place], [place] [address]Dr. Tadeo Smyth LACTATE/LACTIC ACIDon 2022 Lactate [Moles/Vol] 1.1 mmol/L Normal 0.4-1.9 [facility] Comment on above: Performed By: #### L SOLANGE ####[facility] Xzatforqkm4776 [place] [address]Dr. Tadeo Smyth LIPASEon 09-18-2022 Lipase [Catalytic activity/Vol] 75.0 U/L Normal 73.0-393.0 [facility] Comment on above: Performed By: #### L IPA, CMP, VIJI ####[facility] Vqzxukakwa2119 [place] [address]Dr. Tadeo Smyth PROF 14(COMP METB)on 023 Albumin [Mass/Vol] 3.4 g/dL Normal 3.4-5.0 [facility] Comment on above: Performed By: #### L IPA, CMP, VIJI ####[facility] Jtqtesmila339[address] [place], [place] [address]Dr. Tadeo Smyth Albumin/Globulin [Mass ratio] 0.9 {ratio} Normal [facility] Comment on above: Performed By: #### L IPA, CMP, VIJI ####[facility] Qtpozxqtva729[address] [place], [place] [address]Dr. Tadeo Smyth ALP [Catalytic activity/Vol] 164 U/L Critically high 46-116 [facility] Comment on above: Performed By: #### L IPA, CMP, VIJI ####[facility] Wlqgphjgdv1427[address] [place], [place] [address]Dr. Tadeo Smyth ALT [Catalytic activity/Vol] 29 U/L Normal 14-59 [facility] Comment on above: Performed By: #### L IPA, CMP, VIJI ####[facility] Alkfqbubgp5794 [place] [address]Dr. Tadeo Smyth Anion gap [Moles/Vol] 12.3 mmol/L Normal [facility] Comment on above: Performed By: #### L IPA, CMP, VIJI ####[facility] Ikfsnesuhh[address] [place], [place] [address]Dr. Tadeo Smyth AST [Catalytic activity/Vol] 30 U/L Normal 15-37 [facility] Comment on above: Performed By: #### L IPA, CMP, VIJI ####[facility] Enfpamaoqc128[address] [place], [place] [address]Dr. Tadeo Smyth Bilirubin [Mass/Vol] 0.3 mg/dL Normal 0.2-1.0 [facility] Comment on above: Performed By: #### L IPA CMP, VIJI ####[facility] Nlhgkjdtua5453 [place] [address]Dr. Tadeo Smyth Calcium [Mass/Vol] 8.9 mg/dL Normal 8.5-10.1 [facility] Comment on above: Performed By: #### L IPA CMP, VIJI ####[facility] Wflrggseve80[address] [place], [place] [address]Dr. Tadeo Smyth Chloride [Moles/Vol] 103 mmol/L Normal 98-107 [facility] Comment on above: Performed By: #### L IPA CMP, VIJI ####[facility] Qfhldrirkh817[address] [place], [place] [address]Dr. Tadeo Smyth CO2 [Moles/Vol] 27.8 mmol/L Normal 21.0-32.0 [facility] Comment on above: Performed By: #### L IPA, CMP, VIJI ####[facility] Usofvciwpa338[address] [place], [place] [address]Dr. Tadeo Smyth Creatinine [Mass/Vol] 0.89 mg/dL Normal 0.55-1.02 [facility] Comment on above: Performed By: #### L IPA CMP, VIJI ####[facility] Kmrplbrske9[address] [place], [place] [address]Dr. Tadeo Smyth EGFR-AF TOGOLESE >60 Normal >=60 [facility] Comment on above: Performed By: #### L IPA, CMP, VIJI ####[facility] Ihbncnfjxb6[address] [place], [place] [address]Dr. Tadeo Smyth EGFR-NON AF TOGOLESE >60 Normal >=60 [facility] Comment on above: Performed By: #### L IPA, CMP, VIJI ####[facility] Genqzelaft499[address] [place], [place] [address]Dr. Tadeo Smyth Globulin (S) [Mass/Vol] 3.9 g/dL Normal [facility] Comment on above: Performed By: #### L IPA, CMP, VIJI ####[facility] Swjxekegdg6309 [place] [id number]. Tadeo Smyth Glucose [Mass/Vol] 96 mg/dL Normal 74-106 [facility] Comment on above: Performed By: #### L IPA, CMP, VIJI ####[facility] Udsfmnuslc7138 [place] [address]Dr. Tadeo Smyth Potassium [Moles/Vol] 4.1 mmol/L Normal 3.5-5.1 [facility] Comment on above: Performed By: #### L IPA, CMP, VIJI ####[facility] Vysodejxua1424 [place] [address]Dr. Tadeo Smyth Protein [Mass/Vol] 7.3 g/dL Normal 6.4-8.2 [facility] Comment on above: Performed By: #### L IPA, CMP, VIJI ####[facility] Mxmfcapzkl0571 [place] [address]Dr. Tadeo Smyth Sodium [Moles/Vol] 139 mmol/L Normal 136-145 [facility] Comment on above: Performed By: #### L IPA, CMP, VIJI ####[facility] Ualnkpuduo1518 [place] [address]Dr. Tadeo Smyth Urea nitrogen [Mass/Vol] 19.0 mg/dL Critically high 7.0-18.0 [facility] Comment on above: Performed By: #### L IPA, CMP, VIJI ####[facility] Zgniixxzof6443 [place] [address]Dr. Tadeo Smyth Urea nitrogen/Creatinine [Mass ratio] 21.3 mg/mg Normal [facility] Comment on above: Performed By: #### L IPA, CMP, VIJI ####[facility] Ilihskawwo4223 [place] [address]Dr. Tadeo Smyth URINE MICROSCOPIC ONLYon BACTERIA TRACE Abnormal NONE SEEN [facility] Comment on above: Performed By: #### E KAROL FRANCISCO ####[facility] Uqrslcdtka0947 [place] [address]Dr. Tadeo Smyth Bacteria identified Cx Nom (U) NOT INDICATED Normal [facility] Comment on above: Performed By: #### SANDRO MERCHANTRO ####[facility] Ouatomggjs1498 [place] [address]Dr. Margotnicole Haja CAST NONE SEEN Normal NONE SEEN [facility] Comment on above: Performed By: #### SANDRO MERCHANTRO ####[facility] Eltwmbhcpx2231 [place] [address]Dr. Tadeo Smyth Crystals LM Nom (Urine sed) SEEN Abnormal NONE SEEN [facility] Comment on above: Performed By: #### SANDRO MERCHANTRO ####[facility] Vsrsemuvko5439 [place] [address]Dr. Tadeo Smyth Epithelial cells LM Ql (Urine sed) RARE Normal NONE SEEN /RARE [facility] Comment on above: Performed By: #### SANDRO MERCHANTRO ####[facility] Uisbnqdswb6030[address] [place], [place] [address]Dr. Tadeo Smyth MUCOUS TRACE Abnormal NONE SEEN [facility] Comment on above: Performed By: #### Matthew FRANCISCO CHINEDURO ####[facility] Xojwvxotij9[address] [place], [place] [address]Dr. Tadeo Smyth RBC 0-2 Normal 0-2 [facility] Comment on above: Performed By: #### SANDRO MERCHANTRO ####[facility] Phajpmzcab143[address] [place], [place] [address]Dr. Tadeo Smyth WBC 0-2 Abnormal NONE SEEN [facility] Comment on above: Performed By: #### KAROL MERCHANT ####[facility] Saftqjpwcj614[address] [place], [place] [address]Dr. Tadeo Smyth CBC AUTO DIFFon 09-14-2022 BASO # 0.0 103/ul Normal 0.0-0.1 [facility] Comment on above: Performed By: #### C BC ####[facility] Anobjviqhv211[address] [place], [place] [address]Dr. Tadeo Smyth Basophils/100 WBC (Bld) 0.3 % Normal 0.2-2.0 [facility] Comment on above: Performed By: #### C BC ####[facility] Sukneqymdq5721 [place] [id number]. Tadeo Smyth EO # 0.2 103/ul Normal 0.0-0.7 [facility] Comment on above: Performed By: #### C BC ####[facility] Xziymbjwbq8638 [place] [address]Dr. Tadeo Smyth Eosinophils/100 WBC (Bld) 1.1 % Normal 0.9-7.0 [facility] Comment on above: Performed By: #### C BC ####[facility] Btnwuywktz4237[address] [place], [place] [address]Dr. Tadeo Smyth Erythrocyte distribution width (RBC) [Ratio] 13.7 % Normal 11.0-15.0 [facility] Comment on above: Performed By: #### C BC ####[facility] Tguhtholqq678[address] [place], [place] [address]Dr. Tadeo Smyth Hematocrit (Bld) [Volume fraction] 41.3 % Normal 36.0-48.0 [facility] Comment on above: Performed By: #### C BC ####[facility] Iapynocbmx212[address] [place], [place] [address]Dr. Tadeo Smyth Hemoglobin (Bld) [Mass/Vol] 13.6 g/dL Normal 12.0-16.0 [facility] Comment on above: Performed By: #### C BC ####[facility] Cqtnotweqi57264[address] [place], [place] [address]Dr. Tadeo Smyth IG # 0.05 10e3/ul Critically high 0.00-0.03 [facility] Comment on above: Performed By: #### C BC ####[facility] Ekdtdioiwh60[address] [place], [place] [address]Dr. Tadeo Smyth IG % 0.4 % Normal 0.0-0.5 [facility] Comment on above: Performed By: #### C BC ####[facility] Ncfuaxyjpz137[address] [place], [place] [address]Dr. Tadeo Smyth LYMPH # 2.2 103/ul Normal 1.2-3.8 [facility] Comment on above: Performed By: #### C BC ####[facility] Suhnrvdpeb5382 [place] [id number]. Tadeo Smyth Lymphocytes/100 WBC (Bld) 16.3 % Critically low 20.5-60.0 [facility] Comment on above: Performed By: #### C BC ####[facility] Ynhpxpbhlf7213 [place] [address]Dr. Tadeo Smyth MANUAL DIFF REQ NO Normal [facility] Comment on above: Performed By: #### C BC ####[facility] Sqeudanmfo1355 [place] [address]Dr. Tadeo Smyth MCH (RBC) [Entitic mass] 28.9 pg Normal 26.7-34.0 [facility] Comment on above: Performed By: #### C BC ####[facility] Qfhxkhzcma4906 [place] [address]Dr. Tadeo Smyth MCHC (RBC) [Mass/Vol] 32.9 g/dL Normal 29.9-35.2 [facility] Comment on above: Performed By: #### C BC ####[facility] Jitrmfowch3616 [place] [address]Dr. Tadeo Smyth MCV (RBC) [Entitic vol] 87.9 fL Normal 81.0-99.0 [facility] Comment on above: Performed By: #### C BC ####[facility] Awqwylnfxo6369 [place] [address]Dr. Tadeo Haja MONO # 0.7 103/ul Normal 0.3-0.8 [facility] Comment on above: Performed By: #### C BC ####[facility] Esjmltrgze8535 [place] [address]Dr. Tadeo Smyth Monocytes/100 WBC (Bld) 5.1 % Normal 1.7-12.0 [facility] Comment on above: Performed By: #### C BC ####[facility] Tclprqlxyo4069 [place] [address]Dr. Tadeo Smyth NEUT # 10.3 103/ul Critically high 1.4-6.5 [facility] Comment on above: Performed By: #### C BC ####[facility] Byuhfkzuky8820 [place] [address]Dr. Tadeo Smyth Neutrophils/100 WBC (Bld) 76.8 % Critically high 43.0-75.0 [facility] Comment on above: Performed By: #### C BC ####[facility] Bveirbsszw5502 [place] [address]Dr. Tadeo Smyth Platelet mean volume (Bld) [Entitic vol] 8.8 fL Critically low 9.5-13.5 [facility] Comment on above: Performed By: #### C BC ####[facility] Dzxawqhpaf8156 [place] [id number]. Tadeo Smyth PLT 438 103/ul Normal 150-450 [facility] Comment on above: Performed By: #### C BC ####[facility] Dlgkqrprhv13[address] [place], [place] [address]Dr. Tadeo Haja RBC 4.70 106/ul Normal 4.20-5.40 [facility] Comment on above: Performed By: #### C BC ####[facility] Qwjppkunel[address] [place], [place] [address]Dr. Tadeo Smyth WBC 13.4 103/ul Critically high 4.0-11.0 [facility] Comment on above: Performed By: #### C BC ####[facility] Lxptpmpjwu3559[address] [place], [place] [address]Dr. Tadeo Smyth ER URINE PROFILEon 3 Bilirubin Ql (U) Negative Normal NEGATIVE [facility] Comment on above: Performed By: #### ASNDRO MERCHANTRO ####[facility] Yrrgwhyngr6829 [place] [address]Dr. Tadeo Haja Clarity (U) CLEAR Normal CLEAR [facility] Comment on above: Performed By: #### SANDRO MERCHANTRO ####[facility] Mqtagnfkpm1017 [place] [address]Dr. Tadeo Smyth Color (U) LT. YELLOW Normal YELLOW [facility] Comment on above: Performed By: #### SANDRO MERCHANTRO ####[facility] Svjwfqeheh9[address] [place], [place] [address]Dr. Tadeo ENG A micrscopic examina tion will be performed if indicated. Normal [facility] Comment on above: Performed By: #### KAROL MERCHANT ####[facility] Jcqosabpuf8936 [place] [address]Dr. Tadeo Smyth Glucose Ql (U) Negative Normal NEGATIVE [facility] Comment on above: Performed By: #### KAROL MERCHANT ####[facility] Odjrcxqgqn2977 [place] [address]Dr. Tadeo Smyth Hemoglobin Ql (U) TRACE-INTACT Abnormal NEGATIVE [facility] Comment on above: Performed By: #### KAROL MERCHANT ####[facility] Uvjybilxaw86[address] [place], [place] [address]Dr. Tadeo Smyth Ketones Ql (U) Negative Normal NEGATIVE [facility] Comment on above: Performed By: #### KAROL MERCHANT ####[facility] Gfrpxkvhen29[address] [place], [place] [address]Dr. Tadeo Smyth LEUKOCYTES Negative Normal NEGATIVE [facility] Comment on above: Performed By: #### KAROL MERCHANT ####[facility] Oiiyqczkxj177[address] [place], [place] [address]Dr. Tadeo Smyth Nitrite Ql (U) Negative Normal NEGATIVE [facility] Comment on above: Performed By: #### KAROL MERCHANT ####[facility] Aegvfjdhfl53[address] [place], [place] [address]Dr. Tadeo Smyth pH (U) 6.5 [pH] Normal 5-9 [facility] Comment on above: Performed By: #### KAROL MERCHANT ####[facility] Moemanqaug07[address] [place], [place] [address]Dr. Tadeo Smyth SPEC GRAVITY 1.020 Normal 1.005-<=1.0 25 [facility] Comment on above: Performed By: #### KAROL MERCHANT ####[facility] Cokyfjbdvm1007 [place] [address]Dr. Tadeo Smyth UA PROTEIN Negative Normal NEGATIVE/ TRACE [facility] Comment on above: Performed By: #### KAROL MERCHANT ####[facility] Qwoyneduji6058 [place] [address]Dr. Tadeo Smyth UR MICRO IND INDICATED Normal [facility] Comment on above: Performed By: #### KAROL MERCHANT ####[facility] Vedsasrnec9738 [place] [address]Dr. Tadeo Smyth Urobilinogen Qn (U) 0.2 {Benito'U}/dL Normal 0.2 - 1. 0 [facility] Comment on above: Performed By: #### SANDRO MERCHANTRO ####[facility] Juqlksbntv4315 [place] [address]Dr. Tadeo Smyth LIPASEon 09-14-2022 Lipase [Catalytic activity/Vol] 117.0 U/L Normal 73.0-393.0 [facility] Comment on above: Performed By: #### H STROPN, CMP, LIPA ####[facility] Vbfoxcxulh1545 [place] [address]Dr. Tadeo Smyth PROF 14(COMP METB)on 023 Albumin [Mass/Vol] 3.5 g/dL Normal 3.4-5.0 [facility] Comment on above: Performed By: #### H STROPN, CMP, LIPA ####[facility] Vgrnyqflts7126 [place] [address]Dr. Tadeo Smyth Albumin/Globulin [Mass ratio] 0.8 {ratio} Normal [facility] Comment on above: Performed By: #### H STROPN, CMP, LIPA ####[facility] Napxoufskq9540 [place] [address]Dr. Tadeo Smyth ALP [Catalytic activity/Vol] 180 U/L Critically high 46-116 [facility] Comment on above: Performed By: #### H STROPN, CMP, LIPA ####[facility] Hnaqfcvwos4885 [place] [address]Dr. Tadeo Smyth ALT [Catalytic activity/Vol] 25 U/L Normal 14-59 [facility] Comment on above: Performed By: #### H STROPN, CMP, LIPA ####[facility] Ajivnexvmq8147 [place] [address]Dr. Tadeo Smyth Anion gap [Moles/Vol] 14.4 mmol/L Normal Th e [facility] Comment on above: Performed By: #### H STROPN, CMP, LIPA ####[facility] Urucehazyh2213 [place] [address]Dr. Tadeo Smyth AST [Catalytic activity/Vol] 14 U/L Critically low 15-37 [facility] Comment on above: Performed By: #### H STROPN, CMP, LIPA ####[facility] Rqddsziexb6402 [place] [address]Dr. Tadeo Smyth Bilirubin [Mass/Vol] 0.2 mg/dL Normal 0.2-1.0 [facility] Comment on above: Performed By: #### H STROPN, CMP, LIPA ####[facility] Uyiknzzgzb7850[address] [place], [place] [address]Dr. Tadeo Smyth Calcium [Mass/Vol] 9.4 mg/dL Normal 8.5-10.1 [facility] Comment on above: Performed By: #### H STROPN, CMP, LIPA ####[facility] Qoiiggcshn07[address] [place], [place] [address]Dr. Tadeo Smyth Chloride [Moles/Vol] 107 mmol/L Normal 98-107 [facility] Comment on above: Performed By: #### H STROPN, CMP, LIPA ####[facility] Thffyiztxa[address] [place], [place] [address]Dr. Tadeo Smyth CO2 [Moles/Vol] 23.9 mmol/L Normal 21.0-32.0 [facility] Comment on above: Performed By: #### H STROPN, CMP, LIPA ####[facility] Vcofhonqmg[address] [place], [place] [address]Dr. Tadeo Smyth Creatinine [Mass/Vol] 0.91 mg/dL Normal 0.55-1.02 [facility] Comment on above: Performed By: #### H STROPN, CMP, LIPA ####[facility] Libpzgzyfi25[address] [place], [place] [address]Dr. Tadeo Smyth EGFR-AF TOGOLESE >60 Normal >=60 [facility] Comment on above: Performed By: #### H STROPN, CMP, LIPA ####[facility] Whnmscvwlr8235 [place] [address]Dr. Tadeo Smyth EGFR-NON AF TOGOLESE >60 Normal >=60 [facility] Comment on above: Performed By: #### H STROPN, CMP, LIPA ####[facility] Ovoflmxhis9205 [place] [address]Dr. Tadeo Smyth Globulin (S) [Mass/Vol] 4.2 g/dL Normal [facility] Comment on above: Performed By: #### H STROPN, CMP, LIPA ####[facility] Ptyeonbbqf4282 [place] [address]Dr. Tadeo Smyth Glucose [Mass/Vol] 101 mg/dL Normal 74-106 [facility] Comment on above: Performed By: #### H STROPN, CMP, LIPA ####[facility] Sunoywpzwu7852 [place] [address]Dr. Tadeo Smyth Potassium [Moles/Vol] 3.3 mmol/L Critically low 3.5-5.1 [facility] Comment on above: Performed By: #### H STROPN, CMP, LIPA ####[facility] Vbgznairof1521 [place] [address]Dr. Tadeo Smyth Protein [Mass/Vol] 7.7 g/dL Normal 6.4-8.2 [facility] Comment on above: Performed By: #### H STROPN, CMP, LIPA ####[facility] Mgcianjjqc1329 [place] [address]Dr. Margotlan Smyth Sodium [Moles/Vol] 142 mmol/L Normal 136-145 [facility] Comment on above: Performed By: #### H STROPN, CMP, LIPA ####[facility] Mnubnopuef5821 [place] [address]Dr. Tadeo Smyth Urea nitrogen [Mass/Vol] 17.0 mg/dL Normal 7.0-18.0 [facility] Comment on above: Performed By: #### H STROYAZMIN, CMP, LIPA ####[facility] Dbtdkqohpq6779 [place] [address]Dr. Tadeo Smyth Urea nitrogen/Creatinine [Mass ratio] 18.7 mg/mg Normal [facility] Comment on above: Performed By: #### H STROYAZMIN, CMP, LIPA ####[facility] Ubcmjdscmw6808 [place] [address]Dr. Tadeo Smyth TROPONIN, HIGH SENSITIVITYon 09-14-2022 HSTROP 46.6 pg/mL Normal 4.0-51.3 [facility] Comment on above: Result Comment: CUT- OFF POINTS HAVE BEEN ESTABLISHED BASED ON THE FOURTH UNIVERSAL DEFINITIONS OF MYOCARDIALINFARCTION. THE UPPER REFERENCE LIMIT (URL) OF TROPONIN, DEFINED THE 99TH PERCENTILE OFcTnI DISTRIBUTION IN A REFERENCE POPULATION, HAS BEEN CONFIRMED THE DECISION THRESHOLDFOR [place] DIAGNOSIS. Performed By: #### H DIANN FIGUEROA, LIPA ####[facility] Jksssubisq9744 [place] [address]Dr. Tadeo Smyth URINE MICROSCOPIC ONLYon BACTERIA NONE SEEN Normal NONE SEEN [facility] Comment on above: Performed By: #### Matthew FRANCISCO UMCHINEDURO ####[facility] Fcvllctmpb[address] [place], [place] [address]Dr. Tadeo Smyth Bacteria identified Cx Nom (U) NOT INDICATED Normal [facility] Comment on above: Performed By: #### Matthew FRANCISCO UMICRO ####[facility] Imbhmplzxy6317 [place] [address]Dr. Tadeo Smyth CAST NONE SEEN Normal NONE SEEN [facility] Comment on above: Performed By: #### Matthew FRANCISCO UMICRO ####[facility] Kswawfunod5881 [place] [address]Dr. Tadeo Smyth Crystals LM Nom (Urine sed) NONE SEEN Normal NONE SEEN [facility] Comment on above: Performed By: #### Matthew FRANCISCO UMICRO ####[facility] Knouingmyy4555 [place] [address]Dr. Tadeo Smyth Epithelial cells LM Ql (Urine sed) FEW Abnormal NONE SEEN /RARE [facility] Comment on above: Performed By: #### E SARAH BETHR UMICRO ####[facility] Pbxbeevxft5035 [place], [place] [address]Rj. Tadeo Smyth MUCOUS MODERATE Abnormal NONE SEEN [facility] Comment on above: Performed By: #### E NOLAN, UMICRO ####[facility] Vjvjpagzpy3842 [place], [place] [address]Td. Margotnicole Smyth RBC 0-2 Normal 0-2 [facility] Comment on above: Performed By: #### E NOLAN, UMICRO ####[facility] Jrfdmbrymc2686 [place], [place] [address]Cf. Margotnicole Smyth WBC NONE SEEN Normal NONE SEEN [facility] Comment on above: Performed By: #### E NOLAN UMICRO ####[facility] Fjforkbaoe3232 [place] [id number]. Tadeo Smyth XR ABD FLAT UP_PA Kasey 09-14 XR ABD FLAT UP_PA CH Normal [facility] VC COMP CONSULTATIONon 09-06 VC COMP CONSULTATION Normal [facility] VC VENOUS REFLUX MACARIO LMTon 0 09-06-2022 VC VENOUS REFLUX MACARIO LMT Normal [facility] XR KUB 1 VIEWon 08-18-2022 XR KUB 1 VIEW Normal [facility] US RUBENS DOP LEG RTon 08-11-20 US RUBENS DOP LEG RT Normal [facility] Provider Letteron 08-10-2022 Provider Letter (Inserted Image. Kristin ble to display) August 10, 2022 CONSTANTINO CARDOSO [address] [place] [address] CONSTANTINO CARDOSO 1970 Dear Constantino, We have been trying to reach you with no success. It is important that you return our call regarding your referral. Thank you for your prompt attention to this matter. Sincerely, [facility] Normal [facility] AMYLASEon 08-08-2022 Amylase [Catalytic activity/Vol] 64 U/L Normal 25-115 [facility] Comment on above: Performed By: #### C MP, VIJI, LIPA, CMADM ####[facility] Ffqoyfwhzh3790 [place] [id number]. Tadeo Haja CARDIAC NORA ADMITon 022 CK [Catalytic activity/Vol] 127 U/L Normal 26-192 [facility] Comment on above: Performed By: #### C MP, VIJI, LIPA, CMADM ####[facility] Fevnduzbow5175 [place] [address]Dr. Tadeo Haja CK.MB [Mass/Vol] 1.71 ng/mL Normal <=3.60 [facility] Comment on above: Performed By: #### C MP, VIJI, LIPA, CMADM ####[facility] Noihjpjiwc4363 [place] [address]Dr. Tadeo Haja HSTROP 36.7 pg/mL Normal 4.0-51.3 [facility] Comment on above: Result Comment: CUT- OFF POINTS HAVE BEEN ESTABLISHED BASED ON THE FOURTH UNIVERSAL DEFINITIONS OF MYOCARDIALINFARCTION. THE UPPER REFERENCE LIMIT (URL) OF TROPONIN, DEFINED THE 99TH PERCENTILE OFcTnI DISTRIBUTION IN A REFERENCE POPULATION, HAS BEEN CONFIRMED THE DECISION THRESHOLDFOR [place] DIAGNOSIS. Performed By: #### C MP, VIJI, LIPA, CMADM ####[facility] Effmzpfoml2232 [place] [address]Dr. Margotnicole Smyth AAKASH 23 ng/mL Normal 9-82 [facility] Comment on above: Performed By: #### C MP, VIJI, LIPA, CMADM ####[facility] Ncgdhmmmwf3714 [place] [address]Dr. Margotnicole Smyth CBC AUTO DIFFon 08-08-2022 BASO # 0.0 103/ul Normal 0.0-0.1 [facility] Comment on above: Performed By: #### C BC ####[facility] Btodbvztxb3480 [place] [address]Dr. Tadeo Smyth Basophils/100 WBC (Bld) 0.4 % Normal 0.2-2.0 [facility] Comment on above: Performed By: #### C BC ####[facility] Zlqjeioizi5739 [place] [address]Dr. Tadeo Smyth EO # 0.1 103/ul Normal 0.0-0.7 [facility] Comment on above: Performed By: #### C BC ####[facility] Nrhirulagm6715 [place] [id number]. Tadeo Smyth Eosinophils/100 WBC (Bld) 1.5 % Normal 0.9-7.0 [facility] Comment on above: Performed By: #### C BC ####[facility] Xwxmzhrdpk[address] [place], [place] [address]Dr. Tadeo Smyth Erythrocyte distribution width (RBC) [Ratio] 13.5 % Normal 11.0-15.0 [facility] Comment on above: Performed By: #### C BC ####[facility] Rauvxoqbvm997[address] [place], [place] [address]Dr. Tadeo Smyth Hematocrit (Bld) [Volume fraction] 37.0 % Normal 36.0-48.0 [facility] Comment on above: Performed By: #### C BC ####[facility] Ckqoyzbfov4218[address] [place], [place] [address]Dr. Tadeo Smyth Hemoglobin (Bld) [Mass/Vol] 12.0 g/dL Normal 12.0-16.0 [facility] Comment on above: Performed By: #### C BC ####[facility] Japrqswoer038[address] [place], [place] [address]Dr. Tadeo Smyth IG # 0.02 10e3/ul Normal 0.00-0.03 [facility] Comment on above: Performed By: #### C BC ####[facility] Wkdkgjitom964746 [address] [place], [place] [address]Dr. Tadeo Smyth IG % 0.3 % Normal 0.0-0.5 [facility] Comment on above: Performed By: #### C BC ####[facility] Uciujjclrq067646 [address] [place], [place] [address]Dr. Tadeo Smyth LYMPH # 2.0 103/ul Normal 1.2-3.8 [facility] Comment on above: Performed By: #### C BC ####[facility] Bpazdfxhkc243746 [address] [place], [place] [address]Dr. Tadeo Smyth Lymphocytes/100 WBC (Bld) 27.9 % Normal 20.5-60.0 [facility] Comment on above: Performed By: #### C BC ####[facility] Fdffvwggxk7943 [place] [address]Dr. Tadeo Smyth MANUAL DIFF REQ NO Normal [facility] Comment on above: Performed By: #### C BC ####[facility] Vvwiujtyby3480 [place] [id number]. Tadeo Smyth MCH (RBC) [Entitic mass] 28.9 pg Normal 26.7-34.0 [facility] Comment on above: Performed By: #### C BC ####[facility] Tstjcnxmpo5712 [place] [address]Dr. Tadeo Smyth MCHC (RBC) [Mass/Vol] 32.4 g/dL Normal 29.9-35.2 [facility] Comment on above: Performed By: #### C BC ####[facility] Bhtuhpqycn3009[address] [place], [place] [address]Dr. Tadeo Smyth MCV (RBC) [Entitic vol] 89.2 fL Normal 81.0-99.0 [facility] Comment on above: Performed By: #### C BC ####[facility] Rkfoizppuj876046 [address] [place], [place] [address]Dr. Tadeo Smyth MONO # 0.5 103/ul Normal 0.3-0.8 [facility] Comment on above: Performed By: #### C BC ####[facility] Cigwhyugyx391746 [address] [place], [place] [address]Dr. Tadeo Smyth Monocytes/100 WBC (Bld) 6.7 % Normal 1.7-12.0 [facility] Comment on above: Performed By: #### C BC ####[facility] Ikgvginnyz659[address] [place], [place] [address]DrNeo Smyth NEUT # 4.5 103/ul Normal 1.4-6.5 [facility] Comment on above: Performed By: #### C BC ####[facility] Rmeqadzaoh546846 [address] [place], [place] [address]Dr. Tadeo Smyth Neutrophils/100 WBC (Bld) 63.2 % Normal 43.0-75.0 [facility] Comment on above: Performed By: #### C BC ####[facility] Ptywrysyyw1038 [place] [address]Dr. Tadeo Smyth Platelet mean volume (Bld) [Entitic vol] 9.0 fL Critically low 9.5-13.5 [facility] Comment on above: Performed By: #### C BC ####[facility] Garmgtofbm7052 [place] [address]Dr. Tadeo Smyth PLT 382 103/ul Normal 150-450 [facility] Comment on above: Performed By: #### C BC ####[facility] Yhmflxmfpr9315 [place] [address]Dr. Tadeo Smyth RBC 4.15 106/ul Critically low 4.20-5.40 [facility] Comment on above: Performed By: #### C BC ####[facility] Gjzsjszhur5292 [place] [address]Dr. Tadeo Smyth WBC 7.1 103/ul Normal 4.0-11.0 [facility] Comment on above: Performed By: #### C BC ####[facility] Inxsgffsnr723746 [address] [place], [place] [address]Dr. Tadeo Smyht CT ABD/PELV W CONon 08-08-[address] ABD/PELV W CON Normal [facility] ER URINE PROFILEon 2 Bilirubin Ql (U) Negative Normal NEGATIVE [facility] Comment on above: Performed By: #### KAROL MERCHANT ####[facility] Ndnxuswhpp162846 [address] [place], [place] [address]Dr. Tadeo Smyth Clarity (U) CLEAR Normal CLEAR [facility] Comment on above: Performed By: #### SANDRO MERCHANTRO ####[facility] Sfqpwpmczu2221 [place] [address]DrNeo Smyth Color (U) YELLOW Normal YELLOW [facility] Comment on above: Performed By: #### SANDRO MERCHANTRO ####[facility] Xrefiwqmlm955046 [address] [place], [place] [address]DrNeo Smyth ERUAHD A micrscopic examina tion will be performed if indicated. Normal [facility] Comment on above: Performed By: #### Matthew FRANCISCO UMICRO ####[facility] Xnbfmlxlvn0428 [place] [address]Dr. Tadeo Smyth Glucose Ql (U) Negative Normal NEGATIVE [facility] Comment on above: Performed By: #### Matthew FRANCISCO UMICRO ####[facility] Tcidgpapul5311[address] [place], [place] [address]Dr. Tadeo Smyth Hemoglobin Ql (U) TRACE-LYSED Abnormal NEGATIVE [facility] Comment on above: Performed By: #### Matthew FRANCISCO UMICRO ####[facility] Nmarrpsgfa696746 [address] [place], [place] [address]Dr. Margotnicole Smyth Ketones Ql (U) TRACE Abnormal NEGATIVE [facility] Comment on above: Performed By: #### Matthew FRANCISCO UMICRO ####[facility] Ifkatrnwgi27[address] [place], [place] [address]Dr. Margotnicole Smyth LEUKOCYTES Negative Normal NEGATIVE [facility] Comment on above: Performed By: #### Matthew FRANCISCO UMICRO ####[facility] Zjuajwvsgn1324[address] [place], [place] [address]Dr. Tadeo Smyth Nitrite Ql (U) Negative Normal NEGATIVE [facility] Comment on above: Performed By: #### Matthew FRANCISCO UMICRO ####[facility] Auoefvywer124746 [address] [place], [place] [address]Dr. Margotnicole Smyth pH (U) 6.0 [pH] Normal 5-9 [facility] Comment on above: Performed By: #### Matthew FRANCISCO UMICRO ####[facility] Kzjsfowclm077646 [address] [place], [place] [address]Dr. Margotnicole Smyth SPEC GRAVITY >=1.030 Abnormal 1.005-<=1.0 25 [facility] Comment on above: Performed By: #### Matthew FRANCISCO UMICRO ####[facility] Nbfyyvkhie941146 [address] [place], [place] [address]Dr. Margotnicole Smyth UA PROTEIN TRACE Normal NEGATIVE/ TRACE [facility] Comment on above: Performed By: #### Matthew FRANCISCO UMICRO ####[facility] Wxlizrxysq6516 [place] [address]Dr. Tadeo Smyth UR MICRO IND INDICATED Normal [facility] Comment on above: Performed By: #### SANDRO MERCHANTRO ####[facility] Pkkbvttsjc0026 [place] [address]Dr. Margotnicole Smyth Urobilinogen Qn (U) 0.2 {Benito'U}/dL Normal 0.2 - 1. 0 [facility] Comment on above: Performed By: #### Matthew FRANCISCO, ICRO ####[facility] Rldwsymkns3323 [place] [address]Dr. Tadeo Smyth LACTATE/LACTIC ACIDon 2021 Lactate [Moles/Vol] 1.3 mmol/L Normal 0.4-1.9 [facility] Comment on above: Performed By: #### L ACT ####[facility] Whlyowxrgb659[address] [place], [place] [address]Dr. Tadeo Smyth LIPASEon 08-08-2022 Lipase [Catalytic activity/Vol] 120.0 U/L Normal 73.0-393.0 [facility] Comment on above: Performed By: #### C MP, VIJI, LIPA, CMADM ####[facility] Vivbsklfgm2042 [place] [address]Dr. Tadeo Smyth PROF 14(COMP METB)on 022 Albumin [Mass/Vol] 3.8 g/dL Normal 3.4-5.0 [facility] Comment on above: Performed By: #### C MP, VIJI, LIPA, CMADM ####[facility] Rcrqwqddwy8907 [place] [address]Dr. Tadeo Smyth Albumin/Globulin [Mass ratio] 1.1 {ratio} Normal [facility] Comment on above: Performed By: #### C MP, VIJI, LIPA, CMADM ####[facility] Kryibkhyth4369 [place] [address]Dr. Tadeo Smyth ALP [Catalytic activity/Vol] 145 U/L Critically high 46-116 [facility] Comment on above: Performed By: #### C MP, VIJI, LIPA, CMADM ####[facility] Azbscakanb2808 [place] [address]Dr. Tadeo Smyth ALT [Catalytic activity/Vol] 30 U/L Normal 14-59 [facility] Comment on above: Performed By: #### C MP, VIJI, LIPA, CMADM ####[facility] Soaodaiiel3898 [place] [address]Dr. Tadeo Smyth Anion gap [Moles/Vol] 11.5 mmol/L Normal [facility] Comment on above: Performed By: #### C MP, VJII, LIPA, CMADM ####[facility] Ewemilevws7010 [place] [address]Dr. Tadeo Smyth AST [Catalytic activity/Vol] 17 U/L Normal 15-37 [facility] Comment on above: Performed By: #### C MP, VIIJ, LIPA, CMADM ####[facility] Xrqnkxvmao1902 [place] [address]Dr. Tadeo Smyth Bilirubin [Mass/Vol] 0.1 mg/dL Critically low 0.2-1.0 [facility] Comment on above: Performed By: #### C MP, VIJI, LIPA, CMADM ####[facility] Dqihlmrspz666[address] [place], [place] [address]Dr. Tadeo Smyth Calcium [Mass/Vol] 8.9 mg/dL Normal 8.5-10.1 [facility] Comment on above: Performed By: #### C MP, VIJI, LIPA, CMADM ####[facility] Xrfvbganxj7928 [place] [address]Dr. Tadeo Smyth Chloride [Moles/Vol] 104 mmol/L Normal 98-107 [facility] Comment on above: Performed By: #### C MP, VIJI, LIPA, CMADM ####[facility] Bowlvojbez9967[address] [place], [place] [address]Dr. Tadeo Smyth CO2 [Moles/Vol] 27.2 mmol/L Normal 21.0-32.0 [facility] Comment on above: Performed By: #### C MP, VIJI, LIPA, CMADM ####[facility] Xmtffyngcl4428 [place] [address]Dr. Tadeo Smyth Creatinine [Mass/Vol] 0.90 mg/dL Normal 0.55-1.02 [facility] Comment on above: Performed By: #### C MP, VIJI, LIPA, CMADM ####[facility] Ldlghidgfb9519 [place] [address]Dr. Tadeo Smyth EGFR-AF TOGOLESE >60 Normal >=60 [facility] Comment on above: Performed By: #### C MP, VIJI, LIPA, CMADM ####[facility] Rphwzgjkaf3948 [place] [address]Dr. Tadeo Smyth EGFR-NON AF TOGOLESE >60 Normal >=60 [facility] Comment on above: Performed By: #### C MP, VIJI, LIPA, CMADM ####[facility] Ejpbtghnrr1705 [place] [address]Dr. Tadeo Smyth Globulin (S) [Mass/Vol] 3.5 g/dL Normal [facility] Comment on above: Performed By: #### C MP, VIJI, LIPA, CMADM ####[facility] Yvuiwhlkub946[address] [place], [place] [address]Dr. Tadeo Smyth Glucose [Mass/Vol] 98 mg/dL Normal 74-106 [facility] Comment on above: Performed By: #### C MP, VIJI, LIPA, CMADM ####[facility] Siawqjsjvi5517 [place] [address]Dr. Tadeo Smyth Potassium [Moles/Vol] 3.7 mmol/L Normal 3.5-5.1 [facility] Comment on above: Performed By: #### C MP, VIJI, LIPA, CMADM ####[facility] Zmzfqiqavt7998 [place] [address]Dr. Tadeo Smyth Protein [Mass/Vol] 7.3 g/dL Normal 6.4-8.2 [facility] Comment on above: Performed By: #### C MP, VIJI, LIPA, CMADM ####[facility] Uutzktcstn5879 [place] [address]Dr. Tadeo Smyth Sodium [Moles/Vol] 139 mmol/L Normal 136-145 [facility] Comment on above: Performed By: #### C VIJI GARCIA LIPA, CMADM ####[facility] Bstzhgjznf1815 [place] [address]Dr. Tadeo Smyth Urea nitrogen [Mass/Vol] 25.0 mg/dL Critically high 7.0-18.0 [facility] Comment on above: Performed By: #### C VIJI GARCIA LIPA, CMADM ####[facility] Gdzmmpzwkv5861 [place] [address]Dr. Tadeo Smyth Urea nitrogen/Creatinine [Mass ratio] 27.8 mg/mg Normal [facility] Comment on above: Performed By: #### C VIJI GARCIA LIPA, CMAMARGARITO ####[facility] Gpnkcuoyhs8326 [place] [address]Dr. Tadeo Smyth URINE MICROSCOPIC ONLYon BACTERIA NONE SEEN Normal NONE SEEN [facility] Comment on above: Performed By: #### SANDRO MERCHANTRO ####[facility] Muvrnvmadp428[address] [place], [place] [address]Dr. Tadeo Smyth Bacteria identified Cx Nom (U) NOT INDICATED Normal [facility] Comment on above: Performed By: #### KAROL MERCHANT ####[facility] Ionqdcnvvu8422 [place] [address]Dr. Tadeo Smyth CAST NONE SEEN Normal NONE SEEN [facility] Comment on above: Performed By: #### SANDRO MERCHANTRO ####[facility] Bptatyedho7938 [place] [address]Dr. Tadeo Smyth Crystals LM Nom (Urine sed) NONE SEEN Normal NONE SEEN [facility] Comment on above: Performed By: #### SANDRO MERCHANTRO ####[facility] Xurdjbhpcg910[address] [place], [place] [address]Dr. Tadeo Smyth Epithelial cells LM Ql (Urine sed) FEW Abnormal NONE SEEN /RARE [facility] Comment on above: Performed By: #### SANDRO MERCHANTRO ####[facility] Zlqsuhmejc775[address] [place], [place] [address]Dr. Yinicole Smyth MUCOUS NONE SEEN Normal NONE SEEN [facility] Comment on above: Performed By: #### SANDRO MERCHANTRO ####[facility] Jfspplyfar7991 [place], [place] [address]Fh. Margotincole Smyth RBC 2-5 Abnormal 0-2 [facility] Comment on above: Performed By: #### Matthew FRANCISCO UMICRO ####[facility] Arcclvqpzw5559 [place], [place] [address]Sz. Tadeo Smyth WBC NONE SEEN Normal NONE SEEN [facility] Comment on above: Performed By: #### SANDRO MERCHANTRO ####[facility] Obclntvvex4744 [place], [place] [address]N[place]. Tadeo Smyth Gastroenterology Office/Clin ic Noteon 07-24-2022 [...] for 1 month. 3. 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 Her next EGD is due in 2022. 4. Epigastric pain (R10.13: Epigastric pain) 5. Gastric bezoar (T18.2XXA: Foreign body in stomach, initial encounter) ATTESTATION: Documentation services were performed after patient or guardian consented to allow Richard Nunez to record this visit. JOSE FRANCISCO social media specialist and provider reviewed before signing. JOSE FRANCISCO: Darlene Summersg. Follow-up No qualifying data available Problem List/Past [...] 10 mg= (more content not included)... Normal [facility] Comment on above: Result Comment: Elec tronically Signed By: Agata Nunes\.br\Date and Time Signed: 07/22/22 16:25 EST\.br\Electronically Co-Signed By: Anai REAGAN MD\.br\Date and Time Co-Signed: 07/24/22 15:06 EST AMYLASEon 07-21-2022 Amylase [Catalytic activity/Vol] 49 U/L Normal 25-115 [facility] Comment on above: Performed By: #### L IPA, VIJI, CMP ####[facility] Kcupondpjs5911 [place] [address]Dr. Tadeo Haja CBC AUTO DIFFon 07-21-2022 BASO # 0.0 103/ul Normal 0.0-0.1 [facility] Comment on above: Performed By: #### C BC ####[facility] Icmkweatjy7582 [place] [address]Dr. Tadeo Smyth Basophils/100 WBC (Bld) 0.6 % Normal 0.2-2.0 [facility] Comment on above: Performed By: #### C BC ####[facility] Fiftbgurwt736[address] [place], [place] [address]Dr. Tadeo Smyth EO # 0.2 103/ul Normal 0.0-0.7 [facility] Comment on above: Performed By: #### C BC ####[facility] Scyuvzqpla980246 [address] [place], [place] [address]Dr. Tadeo Smyth Eosinophils/100 WBC (Bld) 3.1 % Normal 0.9-7.0 [facility] Comment on above: Performed By: #### C BC ####[facility] Rnfkjhhstp9965[address] [place], [place] [address]Dr. Tadeo Smyth Erythrocyte distribution width (RBC) [Ratio] 13.2 % Normal 11.0-15.0 [facility] Comment on above: Performed By: #### C BC ####[facility] Amhbtiocud3240[address] [place], [place] [address]Dr. Tadeo Smyth Hematocrit (Bld) [Volume fraction] 35.7 % Critically low 36.0-48.0 [facility] Comment on above: Performed By: #### C BC ####[facility] Fyqzdckcyc165[address] [place], [place] [address]Dr. Tadeo Smyth Hemoglobin (Bld) [Mass/Vol] 11.6 g/dL Critically low 12.0-16.0 [facility] Comment on above: Performed By: #### C BC ####[facility] Kefolwtuxg769546 [address] [place], [place] [address]Dr. Tadeo Smyth IG # 0.01 10e3/ul Normal 0.00-0.03 [facility] Comment on above: Performed By: #### C BC ####[facility] Cbrgyfjayq4085 [place] [address]Dr. Tadeo Smyth IG % 0.2 % Normal 0.0-0.5 [facility] Comment on above: Performed By: #### C BC ####[facility] Ftmhexvgoi4175[address] [place], [place] [address]Dr. Tadeo Smyth LYMPH # 1.9 103/ul Normal 1.2-3.8 [facility] Comment on above: Performed By: #### C BC ####[facility] Lqyhwbqjgu376346 [address] [place], [place] [address]DrNeo Tadeo Smyth Lymphocytes/100 WBC (Bld) 34.8 % Normal 20.5-60.0 [facility] Comment on above: Performed By: #### C BC ####[facility] Jutxboxign0588[address] [place], [place] [address]Dr. Tadeo Smyth MANUAL DIFF REQ NO Normal [facility] Comment on above: Performed By: #### C BC ####[facility] Ffeuaramjb8460[address] [place], [place] [address]Dr. Tadeo Smyth MCH (RBC) [Entitic mass] 29.1 pg Normal 26.7-34.0 [facility] Comment on above: Performed By: #### C BC ####[facility] Zdcatfwqew949[address] [place], [place] [address]Dr. Tadeo Smyth MCHC (RBC) [Mass/Vol] 32.5 g/dL Normal 29.9-35.2 [facility] Comment on above: Performed By: #### C BC ####[facility] Hbxabayuiw59264[address] [place], [place] [address]DrNeo Tadeo Smyth MCV (RBC) [Entitic vol] 89.7 fL Normal 81.0-99.0 [facility] Comment on above: Performed By: #### C BC ####[facility] Zdkiurajou2179[address] [place], [place] [address]DrNeo Tadeo Haaj MONO # 0.3 103/ul Normal 0.3-0.8 [facility] Comment on above: Performed By: #### C BC ####[facility] Jguwjsljoc7182 [place] [address]Dr. Tadeo Smyth Monocytes/100 WBC (Bld) 6.1 % Normal 1.7-12.0 [facility] Comment on above: Performed By: #### C BC ####[facility] Fvddsqpduk4097 [place] [address]Dr. Tadeo Smyth NEUT # 3.0 103/ul Normal 1.4-6.5 [facility] Comment on above: Performed By: #### C BC ####[facility] Himibqruns7525 [place] [address]Dr. Tadeo Smyth Neutrophils/100 WBC (Bld) 55.2 % Normal 43.0-75.0 [facility] Comment on above: Performed By: #### C BC ####[facility] Zoofigbxhe3480 [place] [address]Dr. Tadeo Smyth Platelet mean volume (Bld) [Entitic vol] 9.0 fL Critically low 9.5-13.5 [facility] Comment on above: Performed By: #### C BC ####[facility] Eokblaggcg4430 [place] [address]Dr. Tadeo Smyth PLT 358 103/ul Normal 150-450 [facility] Comment on above: Performed By: #### C BC ####[facility] Bzmatwuwln4508 [place] [address]Dr. Tadeo Smyth RBC 3.98 106/ul Critically low 4.20-5.40 [facility] Comment on above: Performed By: #### C BC ####[facility] Deqskelgty9160 [place] [id number]. Tadeo Smyth WBC 5.4 103/ul Normal 4.0-11.0 [facility] Comment on above: Performed By: #### C BC ####[facility] Udioyphmer8623 [place] [address]Dr. Tadeo Smyth LIPASEon 07-21-2022 Lipase [Catalytic activity/Vol] 54.0 U/L Critically low 73.0-393.0 [facility] Comment on above: Performed By: #### L VIJI HALL, CMP ####[facility] Pzawrbtvxr3176 [place] [address]Dr. Tadeo Smyth PROF 14(COMP METB)on 022 Albumin [Mass/Vol] 3.5 g/dL Normal 3.4-5.0 [facility] Comment on above: Performed By: #### L VIJI HALL, CMP ####[facility] Bdetspfuus5880 [place] [address]Dr. Tadeo Smyth Albumin/Globulin [Mass ratio] 0.9 {ratio} Normal [facility] Comment on above: Performed By: #### L VIJI HALL, CMP ####[facility] Vltlnmuugr5930 [place] [address]Dr. Tadeo Smyth ALP [Catalytic activity/Vol] 127 U/L Critically high 46-116 [facility] Comment on above: Performed By: #### L VIJI HALL, CMP ####[facility] Wawcuauusw686[address] [place], [place] [address]Dr. Tadeo Smyth ALT [Catalytic activity/Vol] 16 U/L Normal 14-59 [facility] Comment on above: Performed By: #### L VIJI HALL, CMP ####[facility] Cfnhriqwlo167[address] [place], [place] [address]Dr. Tadeo Smyth Anion gap [Moles/Vol] 10.6 mmol/L Normal [facility] Comment on above: Performed By: #### L VIJI HALL, CMP ####[facility] Fqjjhszfkn9870 [place] [address]Dr. Tadeo Smyth AST [Catalytic activity/Vol] 16 U/L Normal 15-37 [facility] Comment on above: Performed By: #### L VIJI HALL, CMP ####[facility] Iteyawyjlu6550[address] [place], [place] [address]Dr. Tadeo Smyth Bilirubin [Mass/Vol] 0.3 mg/dL Normal 0.2-1.0 [facility] Comment on above: Performed By: #### L VIJI HALL, CMP ####[facility] Iwjmiubdtu7789 [place] [address]Dr. Tadeo Smyth Calcium [Mass/Vol] 9.1 mg/dL Normal 8.5-10.1 [facility] Comment on above: Performed By: #### L VIJI HALL, CMP ####[facility] Wbkmdirpti9891 [place] [address]Dr. Tadeo Smyth Chloride [Moles/Vol] 104 mmol/L Normal 98-107 [facility] Comment on above: Performed By: #### L VIJI HALL, CMP ####[facility] Wrwrvarkjv9048 [place] [address]Dr. Tadeo Smyth CO2 [Moles/Vol] 28.0 mmol/L Normal 21.0-32.0 [facility] Comment on above: Performed By: #### L VIJI HALL, CMP ####[facility] Fyoqxjrlai7640[address] [place], [place] [address]Dr. Tadeo Smyth Creatinine [Mass/Vol] 0.96 mg/dL Normal 0.55-1.02 [facility] Comment on above: Performed By: #### L VIJI HALL, CMP ####[facility] Ygvmmiyzbx5880[address] [place], [place] [address]Dr. Tadeo Smyth EGFR-AF TOGOLESE >60 Normal >=60 [facility] Comment on above: Performed By: #### L VIJI HALL, CMP ####[facility] Gthdoeplcn3317[address] [place], [place] [address]Dr. Tadeo Smyth EGFR-NON AF TOGOLESE >60 Normal >=60 [facility] Comment on above: Performed By: #### L VIJI HALL, CMP ####[facility] Aapdlhonty7957[address] [place], [place] [address]Dr. Tadeo Smyth Globulin (S) [Mass/Vol] 3.8 g/dL Normal [facility] Comment on above: Performed By: #### L VIJI HALL, CMP ####[facility] Psfsfzppaa7[address] [place], [place] [address]Dr. Tadeo Smyth Glucose [Mass/Vol] 93 mg/dL Normal 74-106 [facility] Comment on above: Performed By: #### L VIJI HALL, CMP ####[facility] Hibdxubqkn9920 [place] [address]Dr. Tadeo Smyth Potassium [Moles/Vol] 3.6 mmol/L Normal 3.5-5.1 [facility] Comment on above: Performed By: #### L VIJI HALL, CMP ####[facility] Vleeofyhqm0158 [place] [address]Dr. Tadeo Smyth Protein [Mass/Vol] 7.3 g/dL Normal 6.4-8.2 [facility] Comment on above: Performed By: #### L VIJI HALL, CMP ####[facility] Iltpvgioet106[address] [place], [place] [address]Dr. Tadeo Smyth Sodium [Moles/Vol] 139 mmol/L Normal 136-145 [facility] Comment on above: Performed By: #### L VIJI HALL, CMP ####[facility] Qpljfedbve107[address] [place], [place] [address]Dr. Tadeo Smyth Urea nitrogen [Mass/Vol] 16.0 mg/dL Normal 7.0-18.0 [facility] Comment on above: Performed By: #### L VIJI HALL, CMP ####[facility] Bbqasfpkrw64[address] [place], [place] [address]Dr. Tadeo Smyth Urea nitrogen/Creatinine [Mass ratio] 16.7 mg/mg Normal [facility] Comment on above: Performed By: #### L VIJI HALL, CMP ####[facility] Hromqhsxmd53[address] [place], [place] [address]Dr. Tadeo Smyth XR ABD FLAT UP_PA Kasey 07-21 XR ABD FLAT UP_PA CH Normal [facility] CULTURE URINEon 07-10-2022 CULTURE URINE Normal [facility] Comment on above: Performed By: #### U RCX ####[facility] Eyzdsxmkwe84[address] [place], [place] [address]Dr. Tadeo Haja INSULINon 07-09-2022 Insulin 15.9 uIU/mL Normal 2.6-24.9 [facility] Comment on above: Performed By: #### I NSULIN ####[facility] Qmmmokeetf1189 [place] [id number]. Tadeo Smyth CBC AUTO DIFFon 07-08-2022 BASO # 0.0 103/ul Normal 0.0-0.1 [facility] Comment on above: Performed By: #### C BC ####[facility] Jywzuojxll[address] [place], [place] [id number]. Margotnicole Smyth Basophils/100 WBC (Bld) 0.6 % Normal 0.2-2.0 [facility] Comment on above: Performed By: #### C BC ####[facility] Myqhaxcern412[address] [place], [place] [address]Dr. Margotnicole Smyth EO # 0.2 103/ul Normal 0.0-0.7 [facility] Comment on above: Performed By: #### C BC ####[facility] Efidjegebb9999[address] [place], [place] [address]Dr. Tadeo Smyth Eosinophils/100 WBC (Bld) 3.4 % Normal 0.9-7.0 [facility] Comment on above: Performed By: #### C BC ####[facility] Virgzshqio1639[address] [place], [place] [address]Dr. Margotnicole Smyth Erythrocyte distribution width (RBC) [Ratio] 13.1 % Normal 11.0-15.0 [facility] Comment on above: Performed By: #### C BC ####[facility] Eudoiegeyf7669[address] [place], [place] [address]Dr. Margotnicole Smyth Hematocrit (Bld) [Volume fraction] 42.4 % Normal 36.0-48.0 [facility] Comment on above: Performed By: #### C BC ####[facility] Iiztxrfquw09364[address] [place], [place] [address]Dr. Margotnicole Smyth Hemoglobin (Bld) [Mass/Vol] 13.7 g/dL Normal 12.0-16.0 [facility] Comment on above: Performed By: #### C BC ####[facility] Psmvvxbhza9847[address] [place], [place] [address]Dr. Tadeo Smyth IG # 0.01 10e3/ul Normal 0.00-0.03 [facility] Comment on above: Performed By: #### C BC ####[facility] Gezgmofwxh[address] [place] [id number]. Tadeo Smyth IG % 0.2 % Normal 0.0-0.5 [facility] Comment on above: Performed By: #### C BC ####[facility] Sirtyvjpwl8343 [place] [address]Dr. Tadeo Smyth LYMPH # 2.1 103/ul Normal 1.2-3.8 [facility] Comment on above: Performed By: #### C BC ####[facility] Ulkoompibv8962 [place] [address]Dr. Tadeo Smyth Lymphocytes/100 WBC (Bld) 41.2 % Normal 20.5-60.0 [facility] Comment on above: Performed By: #### C BC ####[facility] Xdrlnyyvcl2025[address] [place], [place] [address]Dr. Tadeo Smyth MANUAL DIFF REQ NO Normal [facility] Comment on above: Performed By: #### C BC ####[facility] Tgifqgwwge687[address] [place], [place] [address]Dr. Tadeo Smyth MCH (RBC) [Entitic mass] 28.8 pg Normal 26.7-34.0 [facility] Comment on above: Performed By: #### C BC ####[facility] Sjquejzlpn8[address] [place], [place] [address]Dr. Tadeo Smyth MCHC (RBC) [Mass/Vol] 32.3 g/dL Normal 29.9-35.2 [facility] Comment on above: Performed By: #### C BC ####[facility] Wkjmtzzqty6027[address] [place], [place] [address]Dr. Tadeo Smyth MCV (RBC) [Entitic vol] 89.3 fL Normal 81.0-99.0 [facility] Comment on above: Performed By: #### C BC ####[facility] Jpfzoatuvo2636 [place] [id number]. Tadeo Haja MONO # 0.4 103/ul Normal 0.3-0.8 [facility] Comment on above: Performed By: #### C BC ####[facility] Bkpkppnpun5521 [place] [address]Dr. Tadeo Smyth Monocytes/100 WBC (Bld) 8.1 % Normal 1.7-12.0 [facility] Comment on above: Performed By: #### C BC ####[facility] Jemmqwypdq3559 [place] [address]Dr. Tadeo Smyth NEUT # 2.4 103/ul Normal 1.4-6.5 [facility] Comment on above: Performed By: #### C BC ####[facility] Sddgycohgq4238 [place] [address]Dr. Tadeo Smyth Neutrophils/100 WBC (Bld) 46.5 % Normal 43.0-75.0 [facility] Comment on above: Performed By: #### C BC ####[facility] Bgqpwdglkt8038 [place] [address]Dr. Tadeo Smyth Platelet mean volume (Bld) [Entitic vol] 9.3 fL Critically low 9.5-13.5 [facility] Comment on above: Performed By: #### C BC ####[facility] Mykwvswvfl5814 [place] [address]Dr. Tadeo Smyth PLT 443 103/ul Normal 150-450 [facility] Comment on above: Performed By: #### C BC ####[facility] Blicocedeu6963 [place] [address]Dr. Tadeo Smyth RBC 4.75 106/ul Normal 4.20-5.40 [facility] Comment on above: Performed By: #### C BC ####[facility] Nwdlzrgecy13[address] [place], [place] [address]Dr. Tadeo Smyth WBC 5.1 103/ul Normal 4.0-11.0 [facility] Comment on above: Performed By: #### C BC ####[facility] Savrlwlkus9718[address] [place], [place] [address]Dr. Tadeo Smyth FREE THYROXINE INDEX T7on 1 09-07-2021 FTI 2.91 Normal 1.30-4.50 [facility] Comment on above: Performed By: #### T 7, LIPID, TSH, CMP ####[facility] Losbhiklzk1204 [place] [address]Dr. Tadeo Smyth T3U 31.0 % Normal 30.0-39.0 [facility] Comment on above: Performed By: #### T 7, LIPID, TSH, CMP ####[facility] Uwbjimcjge6951 [place] [address]Dr. Tadeo Smyth T4 [Mass/Vol] 9.40 ug/dL Normal 4.80-13.90 [facility] Comment on above: Performed By: #### T 7, LIPID, TSH, CMP ####[facility] Pntitxxrun9178 [place] [address]Dr. Tadeo Smyth GLYCOHEMOGLOBIN A1Con 2021 ADA RECOMMENDATION SEE BELOW Normal [facility] Comment on above: Result Comment: ADA RECOMMENDED LIMIT 4.0 - 6.0 ADA THERAPEUTIC TARGET < 7.0 ACTION SUGGESTED > 7.0 Performed By: #### A 1C ####[facility] Owynfutuqe5509[address] [place], [place] [address]Dr. Tadeo Smyth Glucose [Mass/Vol] 120 mg/dL Normal [facility] Comment on above: Performed By: #### A 1C ####[facility] Stxutmwugw280146 [address] [place], [place] [address]Dr. Tadeo Smyth HbA1c (Bld) [Mass fraction] 5.8 % Normal 4.5-6.2 [facility] Comment on above: Performed By: #### A 1C ####[facility] Brbfphirkr3287[address] [place], [place] [address]Dr. Tadeo Smyth IRONon 07-08-2022 Iron [Mass/Vol] 59.0 ug/dL Normal 50.0-170.0 [facility] Comment on above: Performed By: #### I KEEGAN ####[facility] Jwahmhytnk517[address] [place], [place] [address]Dr. Tadeo Smyth LIPID PROFILEon 07-08-2022 CHOL-HDL RATIO NORM SEE BELOW Normal [facility] Comment on above: Result Comment: 3.3 - 4.4 LOW RISK 4.4 - 7.1 AVERAGE RISK 7.1 - 11.0 MODERATE RISK >11.0 HIGH RISK Performed By: #### T 7, LIPID, TSH, CMP ####[facility] Xvcfafdnop7334 [place] [id number]. Tadeo Smyth Cholesterol [Mass/Vol] 227 mg/dL Critically high <=200 [facility] Comment on above: Performed By: #### T 7, LIPID, TSH, CMP ####[facility] Lxzfbfmntu6504 [place] [address]Dr. Tadeo Smyth Cholesterol in HDL [Mass/Vol] 67 mg/dL Critically high 40-60 [facility] Comment on above: Performed By: #### T 7, LIPID, TSH, CMP ####[facility] Fsrmtyjcpt4159 [place] [address]Dr. Tadeo Smyth Cholesterol in LDL [Mass/Vol] 139.0 mg/dL Normal [facility] Comment on above: Performed By: #### T 7, LIPID, TSH, CMP ####[facility] Zastsmrvyn09[address] [place], [place] [address]Dr. Tadeo Smyth Cholesterol.total/Cho lesterol in HDL [Mass ratio] 3.4 {ratio} Normal [facility] Comment on above: Performed By: #### T 7, LIPID, TSH, CMP ####[facility] Vuxcgynnxd5737 [place] [address]Dr. Tadeo Smyth HDL NORMAL > or = 60 mg/dl - LO W CARDIOVASCULAR RISK <40 mg/dl - HIGH CARDIOVASCULAR RISK Normal [facility] Comment on above: Performed By: #### T 7, LIPID, TSH, CMP ####[facility] Egcmybzjnc9106 [place] [address]Dr. Tadeo Smyth LDL CALC NORMAL SEE BELOW Normal [facility] Comment on above: Result Comment: <100 mg/dl OPTIMAL 100 - 129 mg/dl NEAR OR ABOVE OPTIMAL 130 - 159 mg/dl BORDERLINE HIGH 160 - 189 mg/dl HIGH >190 mg/dl VERY HIGH Performed By: #### T 7, LIPID, TSH, CMP ####[facility] Fkxssmmxja7061 [place] [address]Dr. Tadeo Smyth Triglyceride [Mass/Vol] 105 mg/dL Normal <=150 [facility] Comment on above: Performed By: #### T 7, LIPID, TSH, CMP ####[facility] Dcbnbcvqof8580 [place] [address]Dr. Tadeo Smyth VLDL CALC 21.0 mg/dL Normal [facility] Comment on above: Performed By: #### T 7, LIPID, TSH, CMP ####[facility] Uehiuxwzya9122 [place] [address]Dr. Tadeo Smyth OCC BLD IMMUNO SCREENon 11 OCCULT BLOOD Negative Normal NEGATIVE [facility] Comment on above: Performed By: #### O BSCRN ####[facility] Wuudojvsmv2983 [place] [address]Dr. Tadeo Smyth PROF 14(COMP METB)on 022 Albumin [Mass/Vol] 3.7 g/dL Normal 3.4-5.0 [facility] Comment on above: Performed By: #### T 7, LIPID, TSH, CMP ####[facility] Jjrzgtjtom2774 [place] [address]Dr. Tadeo Smyth Albumin/Globulin [Mass ratio] 0.8 {ratio} Normal [facility] Comment on above: Performed By: #### T 7, LIPID, TSH, CMP ####[facility] Drljavyygg4984 [place] [address]Dr. Tadeo Smyth ALP [Catalytic activity/Vol] 141 U/L Critically high 46-116 [facility] Comment on above: Performed By: #### T 7, LIPID, TSH, CMP ####[facility] Nltfntoctr5026 [place] [address]Dr. Tadeo Smyth ALT [Catalytic activity/Vol] 23 U/L Normal 14-59 [facility] Comment on above: Performed By: #### T 7, LIPID, TSH, CMP ####[facility] Hstwaamcqq4958 [place] [address]Dr. Tadeo Smyth Anion gap [Moles/Vol] 9.8 mmol/L Normal [facility] Comment on above: Performed By: #### T 7, LIPID, TSH, CMP ####[facility] Ajylpvakto1854 [place] [address]Dr. Tadeo Smyth AST [Catalytic activity/Vol] 13 U/L Critically low 15-37 [facility] Comment on above: Performed By: #### T 7, LIPID, TSH, CMP ####[facility] Ywchtzsoeb7[address] [place], [place] [address]Dr. Tadeo Smyth Bilirubin [Mass/Vol] 0.4 mg/dL Normal 0.2-1.0 [facility] Comment on above: Performed By: #### T 7, LIPID, TSH, CMP ####[facility] Qbosnbxvxg586[address] [place], [place] [address]Dr. Tadeo Smyth Calcium [Mass/Vol] 10.2 mg/dL Critically high 8.5-10.1 [facility] Comment on above: Performed By: #### T 7, LIPID, TSH, CMP ####[facility] Iangfwkxvo071646 [address] [place], [place] [address]Dr. Tadeo Smyth Chloride [Moles/Vol] 101 mmol/L Normal 98-107 [facility] Comment on above: Performed By: #### T 7, LIPID, TSH, CMP ####[facility] Ptllfaqery438646 [address] [place], [place] [address]Dr. Tadeo Smyth CO2 [Moles/Vol] 32.8 mmol/L Critically high 21.0-32.0 [facility] Comment on above: Performed By: #### T 7, LIPID, TSH, CMP ####[facility] Nxaseafvfb003746 [address] [place], [place] [address]Dr. Tadeo Smyth Creatinine [Mass/Vol] 0.92 mg/dL Normal 0.55-1.02 [facility] Comment on above: Performed By: #### T 7, LIPID, TSH, CMP ####[facility] Qfmkymhgpr7597[address] [place], [place] [address]Dr. Tadeo Smyth EGFR-AF TOGOLESE >60 Normal >=60 [facility] Comment on above: Performed By: #### T 7, LIPID, TSH, CMP ####[facility] Reskjsldph360246 [address] [place], [place] [address]Dr. Tadeo Smyth EGFR-NON AF TOGOLESE >60 Normal >=60 [facility] Comment on above: Performed By: #### T 7, LIPID, TSH, CMP ####[facility] Kqrxqygoat2194 [place] [address]Dr. Tadeo Smyth Globulin (S) [Mass/Vol] 4.8 g/dL Normal [facility] Comment on above: Performed By: #### T 7, LIPID, TSH, CMP ####[facility] Kbfpkzljax0639 [place] [address]Dr. Tadeo Smyth Glucose [Mass/Vol] 114 mg/dL Critically high 74-106 [facility] Comment on above: Performed By: #### T 7, LIPID, TSH, CMP ####[facility] Ffzomqpvla911[address] [place], [place] [address]Dr. Tadeo Smyth Potassium [Moles/Vol] 3.6 mmol/L Normal 3.5-5.1 [facility] Comment on above: Performed By: #### T 7, LIPID, TSH, CMP ####[facility] Bjwsdebwtd720[address] [place], [place] [address]Dr. Tadeo Smyth Protein [Mass/Vol] 8.5 g/dL Critically high 6.4-8.2 [facility] Comment on above: Performed By: #### T 7, LIPID, TSH, CMP ####[facility] Clhhgyyuao6627[address] [place], [place] [address]Dr. Tadeo Smyth Sodium [Moles/Vol] 140 mmol/L Normal 136-145 [facility] Comment on above: Performed By: #### T 7, LIPID, TSH, CMP ####[facility] Urtscigzxx2388[address] [place], [place] [address]Dr. Tadeo Smyth Urea nitrogen [Mass/Vol] 23.0 mg/dL Critically high 7.0-18.0 [facility] Comment on above: Performed By: #### T 7, LIPID, TSH, CMP ####[facility] Rpjdifehot0924[address] [place], [place] [address]Dr. Tadeo Smyth Urea nitrogen/Creatinine [Mass ratio] 25.0 mg/mg Normal [facility] Comment on above: Performed By: #### T 7, LIPID, TSH, CMP ####[facility] Nbhzosxsyp4289 [place] [id number]. Margotnicole Haja TSHon 07-08-2022 TSH 3.748 uIU/mL Critically high 0.358-3.740 [facility] Comment on above: Performed By: #### T 7, LIPID, TSH, CMP ####[facility] Hcnxamneiw6333 [place] [address]Dr. Tadeo Smyth UA RANDOM W/MICROSCOPICon BACTERIA TRACE Abnormal NONE SEEN [facility] Comment on above: Performed By: #### U AMIC ####[facility] Rnkjdofpqu9698 [place] [address]Dr. Tadeo Smyth Bilirubin Ql (U) Negative Normal NEGATIVE [facility] Comment on above: Performed By: #### U AMIC ####[facility] Vkfbwkdnax3648 [place] [address]Dr. Tadeo Smyth CAST NONE SEEN Normal NONE SEEN [facility] Comment on above: Performed By: #### U AMIC ####[facility] Gkouvmzytn3493 [place] [address]Dr. Tadeo Smyth Clarity (U) CLEAR Normal CLEAR [facility] Comment on above: Performed By: #### U AMIC ####[facility] Suyjsodiqk8181 [place] [address]Dr. Tadeo Smyth Color (U) YELLOW Normal YELLOW [facility] Comment on above: Performed By: #### U AMIC ####[facility] Sbnrkcgwlg8234 [place] [address]Dr. Tadeo Smyth Crystals LM Nom (Urine sed) NONE SEEN Normal NONE SEEN [facility] Comment on above: Performed By: #### U AMIC ####[facility] Hjpeybarde4614[address] [place], [place] [address]Dr. Tadeo Smyth Epithelial cells LM Ql (Urine sed) FEW Abnormal NONE SEEN /RARE [facility] Comment on above: Performed By: #### U AMIC ####[facility] Sodgzhjrdj35[address] [place], [place] [address]Dr. Tadeo Smyth Glucose Ql (U) Negative Normal NEGATIVE [facility] Comment on above: Performed By: #### U AMIC ####[facility] Swyhhefhtf6877 [place] [address]Dr. Tadeo Smyth Hemoglobin Ql (U) SMALL Abnormal NEGATIVE [facility] Comment on above: Performed By: #### U AMIC ####[facility] Lxahducwon5701 [place] [address]Dr. Tadeo Smyth Ketones Ql (U) TRACE Abnormal NEGATIVE [facility] Comment on above: Performed By: #### U AMIC ####[facility] Xaxmgxmzsz274[address] [place], [place] [address]Dr. Tadeo Smyth LEUKOCYTES TRACE Abnormal NEGATIVE [facility] Comment on above: Performed By: #### U AMIC ####[facility] Bqfmplgswx7[address] [place], [place] [address]Dr. Tadeo Smyth MUCOUS NONE SEEN Normal NONE SEEN [facility] Comment on above: Performed By: #### U AMIC ####[facility] Oplyjgjrpu4938[address] [place], [place] [address]Dr. Tadeo Smyth Nitrite Ql (U) Negative Normal NEGATIVE [facility] Comment on above: Performed By: #### U AMIC ####[facility] Hdbrgugskt7424[address] [place], [place] [address]Dr. Tadeo Smyth pH (U) 6.5 [pH] Normal 5-9 [facility] Comment on above: Performed By: #### U AMIC ####[facility] Ejaxvofffq924[address] [place], [place] [address]Dr. Tadeo Smyth RBC 5-10 Abnormal 0-2 [facility] Comment on above: Performed By: #### U AMIC ####[facility] Xqjnqsvtss458[address] [place], [place] [address]Dr. Tadeo Smyth SPEC GRAVITY 1.020 Normal 1.005-<=1.0 25 [facility] Comment on above: Performed By: #### U AMIC ####[facility] Xclhmfykap49[address] [place], [place] [address]Dr. Tadeo Smyht UA PROTEIN 30 mg/dl Abnormal NEGATIVE/ TRACE [facility] Comment on above: Performed By: #### U AMIC ####[facility] Maqvecsuro8353 [place], [place] [address]Ah. Tadeo Smyth Urobilinogen Qn (U) 0.2 {Benito'U}/dL Normal 0.2 - 1. 0 [facility] Comment on above: Performed By: #### U AMIC ####[facility] Cnleareltc8560 [place], [place] [address]Go. Tadeo Smyth WBC 2-5 Abnormal NONE SEEN [facility] Comment on above: Performed By: #### U AMIC ####[facility] Lxxglvrsbe6950 [place], [place] [address]Ad. Tadeo Haja Covid-19 PCR (CVDTBH)on 06-07 SARS-CoV-2 (COVID-19) RNA CHEN+probe Ql (Unsp spec) Not detected Normal NOT DETECTED [facility] Comment on above: Result Comment: When diagnostic [...] for this test is supported by the Director Of Retail Merchandising of Health and Human Service's declaration that [...] be used). Performed By: #### C VDTBH ####[facility] Gbuokjdhgj1007 [place] [id number]. Tadeo Haja CULTURE URINEon 06-09-2022 CULTURE URINE Normal [facility] Comment on above: Performed By: #### U RCX ####[facility] Xhbmzfmasf8736 [place] [id number]. Tadeo Smyth GI PANEL (PCR)on 06-07-2022 Adenovirus F 40/41 Not detected Normal NOT DETECTED [facility] Comment on above: Performed By: #### G IPANEL ####[facility] Evdxidduji934[address] [place], [place] [address]Dr. Tadeo Smyth Astrovirus Not detected Normal NOT DETECTED [facility] Comment on above: Performed By: #### G IPANEL ####[facility] Fddjgrqszc174[address] [place], [place] [address]Dr. Tadeo Smyth C. Diff toxin A/B Not detected Normal NOT DETECTED [facility] Comment on above: Performed By: #### G IPANEL ####[facility] Xnjibaojph68264[address] [place], [place] [address]Dr. Tadeo Smyth Campylobacter Not detected Normal NOT DETECTED [facility] Comment on above: Performed By: #### G IPANEL ####[facility] Pxhzofixxw9995[address] [place], [place] [address]Dr. Tadeo Smyth Cryptosporidium Not detected Normal NOT DETECTED [facility] Comment on above: Performed By: #### G IPANEL ####[facility] Qrwnapthyp923[address] [place], [place] [address]Dr. Tadeo Smyth Cyclos. Cayetanensis Not detected Normal NOT DETECTED [facility] Comment on above: Performed By: #### G IPANEL ####[facility] Nhpgqiwahb209[address] [place], [place] [address]Dr. Tadeo Smyth E. Coli O157 Not Applicable Normal Not Applicable [facility] Comment on above: Performed By: #### G IPANEL ####[facility] Lwnnivzhvn142[address] [place], [place] [address]Dr. Tadeo Smyth E. histolytica Not detected Normal NOT DETECTED [facility] Comment on above: Performed By: #### G IPANEL ####[facility] Sdotcvfpck7428[address] [place], [place] [address]Dr. Tadeo Smyth EAEC Not detected Normal NOT DETECTED [facility] Comment on above: Performed By: #### G IPANEL ####[facility] Qnlqddxemw1535[address] [place], [place] [address]Dr. Tadeo Smyth EIEC Not detected Normal NOT DETECTED [facility] Comment on above: Performed By: #### G IPANEL ####[facility] Hfpmppyldl6372 [place] [address]Dr. Tadeo Smyth EPEC Not detected Normal NOT DETECTED [facility] Comment on above: Performed By: #### G IPANEL ####[facility] Gchtmscebv6497 [place] [address]Dr. Tadeo Smyth ETEC Not detected Normal NOT DETECTED [facility] Comment on above: Performed By: #### G IPANEL ####[facility] Ukesezetmd5607 [place] [address]Dr. Margotnicole Smyth G. Lamblia Not detected Normal NOT DETECTED [facility] Comment on above: Performed By: #### G IPANEL ####[facility] Kcxnqvxydp8969[address] [place], [place] [address]Dr. Tadeo Smyth GIPANEL CONTROLS PASSED Normal [facility] Comment on above: Performed By: #### G IPANEL ####[facility] Gxthcoddpu839[address] [place], [place] [address]Dr. Tadeo [facility] BACTERIA Normal T [facility] Comment on above: Performed By: #### G IPANEL ####[facility] Ypsmfivher720[address] [place], [place] [address]Dr. Tadeo Smyth GIPNLHD ECOLI GI PANEL DIARRHEAGEN IC E.COLI / SHIGELLA Normal [facility] Comment on above: Performed By: #### G IPANEL ####[facility] Tscrjhgrqw745[address] [place], [place] [address]Dr. Tadeo Smyth GIPNLHD INFO SEE BELOW Normal [facility] Comment on above: Result Comment: EAEC - Enteroaggregative E. Coli EPEC- Enteropathogenic E. Coli ETEC- Enterotoxigenic E. Coli lt/st STEC- Shigella-like toxin-producing E. Coli stx1/stx2 EIEC- Shigella/Enteroinvasive E. Coli Performed By: #### G IPANEL ####[facility] Jlodemcnyc9450[address] [place], [place] [address]Dr. Yinicole Smyth GIPNLHD PARASITES GI PANEL PARASITES Normal [facility] Comment on above: Performed By: #### G IPANEL ####[facility] Cedunfemgl7115 [place] [address]Dr. Tadeo Smyth GIPNLHD VIRUS GI PANEL VIRUSES Normal [facility] Comment on above: Performed By: #### G IPANEL ####[facility] Ymrvdghbxc1177 [place] [address]Dr. Tadeo Smyth Norovirus GI/GII Not detected Normal NOT DETECTED [facility] Comment on above: Performed By: #### G IPANEL ####[facility] Pdqtmccmdf8[address] [place], [place] [address]Dr. Tadeo Smyth P. Shigelloides Not detected Normal NOT DETECTED [facility] Comment on above: Performed By: #### G IPANEL ####[facility] Rsgynxevmo1737[address] [place], [place] [address]Dr. Tadeo Smyth Rotavirus A Not detected Normal NOT DETECTED [facility] Comment on above: Performed By: #### G IPANEL ####[facility] Pckpontyku824[address] [place], [place] [address]Dr. Tadeo Smyth Salmonella Not detected Normal NOT DETECTED [facility] Comment on above: Performed By: #### G IPANEL ####[facility] Lyvusigmhx4947[address] [place], [place] [address]Dr. Tadeo Smyth Sapovirus Not detected Normal NOT DETECTED [facility] Comment on above: Performed By: #### G IPANEL ####[facility] Zhpghuprqd569[address] [place], [place] [address]Dr. Tadeo Smtyh STEC Not detected Normal NOT DETECTED [facility] Comment on above: Performed By: #### G IPANEL ####[facility] Swythpprcn[address] [place], [place] [address]Dr. Tadeo Smyth Vibrio Not detected Normal NOT DETECTED [facility] Comment on above: Performed By: #### G IPANEL ####[facility] Ckluimwmgn32[address] [place], [place] [address]Dr. Tadeo Smyth Vibrio Cholera Not detected Normal NOT DETECTED [facility] Comment on above: Performed By: #### G IPANEL ####[facility] Dlxenoalaj[address] [place], [place] [address]Dr. Tadeo Smyth Y. Enterocolitica Not detected Normal NOT DETECTED [facility] [facility] Comment on above: Performed By: #### G IPANEL ####[facility] Urmuzpgpgw16[address] [place], [place] [address]Dr. Tadeo Smyth AMYLASEon 06-06-2022 Amylase [Catalytic activity/Vol] 61 U/L Normal 25-115 [facility] Comment on above: Performed By: #### A MY, LIPA ####[facility] Imakffljoc940946 [address] [place], [place] [address]Dr. Tadeo Smyth CBC AUTO DIFFon 06-06-2022 BASO # 0.0 103/ul Normal 0.0-0.1 [facility] Comment on above: Performed By: #### C BC ####[facility] Mkeeznhmgb1807[address] [place], [place] [address]Dr. Tadeo Smyth Basophils/100 WBC (Bld) 0.5 % Normal 0.2-2.0 [facility] Comment on above: Performed By: #### C BC ####[facility] Jmdvhemgmi432[address] [place], [place] [address]Dr. Tadeo Smyth EO # 0.2 103/ul Normal 0.0-0.7 [facility] Comment on above: Performed By: #### C BC ####[facility] Unstadkstf924[address] [place], [place] [address]Dr. Tadeo Smyth Eosinophils/100 WBC (Bld) 3.4 % Normal 0.9-7.0 [facility] Comment on above: Performed By: #### C BC ####[facility] Yttoezuhoi1077[address] [place], [place] [address]Dr. Tadeo Smyth Erythrocyte distribution width (RBC) [Ratio] 13.2 % Normal 11.0-15.0 [facility] Comment on above: Performed By: #### C BC ####[facility] Kthkbjusvd2505[address] [place], [place] [address]Dr. Tadeo Smyth Hematocrit (Bld) [Volume fraction] 38.3 % Normal 36.0-48.0 [facility] Comment on above: Performed By: #### C BC ####[facility] Phebzdsbqe9135 [place] [id number]. Tadeo Smyth Hemoglobin (Bld) [Mass/Vol] 12.0 g/dL Normal 12.0-16.0 [facility] Comment on above: Performed By: #### C BC ####[facility] Lhozkkqffb2280 [place] [id number]. Tadeo Smyth IG # 0.01 10e3/ul Normal 0.00-0.03 [facility] Comment on above: Performed By: #### C BC ####[facility] Tsnocglkzz1675[address] [place], [place] [address]Dr. Tadeo Smyth IG % 0.2 % Normal 0.0-0.5 [facility] Comment on above: Performed By: #### C BC ####[facility] Lmtpiygwcd251646 [address] [place], [place] [address]Dr. Tadeo Smyth LYMPH # 1.7 103/ul Normal 1.2-3.8 [facility] Comment on above: Performed By: #### C BC ####[facility] Ahnryrfksx828646 [address] [place], [place] [address]Dr. Tadeo Smyth Lymphocytes/100 WBC (Bld) 28.1 % Normal 20.5-60.0 [facility] Comment on above: Performed By: #### C BC ####[facility] Vvvkzdvkyb388446 [address] [place], [place] [address]Dr. Tadeo Smyth MANUAL DIFF REQ NO Normal [facility] Comment on above: Performed By: #### C BC ####[facility] Asamenrkit272146 [address] [place], [place] [address]Dr. Tadeo Smyth MCH (RBC) [Entitic mass] 28.5 pg Normal 26.7-34.0 [facility] Comment on above: Performed By: #### C BC ####[facility] Lycyelgrum684846 [address] [place], [place] [address]Dr. Tadeo Smyth MCHC (RBC) [Mass/Vol] 31.3 g/dL Normal 29.9-35.2 [facility] Comment on above: Performed By: #### C BC ####[facility] Skxaalmrnp7374 [place] [id number]. Tadeo Smyth MCV (RBC) [Entitic vol] 91.0 fL Normal 81.0-99.0 [facility] Comment on above: Performed By: #### C BC ####[facility] Ckufyjncrv6376 [place] [id number]. Tadeo Smyth MONO # 0.4 103/ul Normal 0.3-0.8 [facility] Comment on above: Performed By: #### C BC ####[facility] Dovfcexrko9934 [place] [id number]. Tadeo Smyth Monocytes/100 WBC (Bld) 7.1 % Normal 1.7-12.0 [facility] Comment on above: Performed By: #### C BC ####[facility] Gnkhonggvq760746 [address] [place], [place] [address]Dr. Tadeo Smyth NEUT # 3.6 103/ul Normal 1.4-6.5 [facility] Comment on above: Performed By: #### C BC ####[facility] Vcbjdtikok745913 [address] [place], [place] [id number]. Tadeo Smyth Neutrophils/100 WBC (Bld) 60.7 % Normal 43.0-75.0 [facility] Comment on above: Performed By: #### C BC ####[facility] Igrodaczgx007446 [address] [place], [place] [address]Dr. Tadeo Smyth Platelet mean volume (Bld) [Entitic vol] 8.9 fL Critically low 9.5-13.5 [facility] Comment on above: Performed By: #### C BC ####[facility] Fsvzbmlvos7588 [place] [id number]. Tadeo Smyth PLT 374 103/ul Normal 150-450 [facility] Comment on above: Performed By: #### C BC ####[facility] Fdbshdudao1924[address] [place], [place] [id number]. Tadeo Smyth RBC 4.21 106/ul Normal 4.20-5.40 [facility] Comment on above: Performed By: #### C BC ####[facility] Xonmvapmwz9186 [place] [address]Dr. Tadeo Smyth WBC 5.9 103/ul Normal 4.0-11.0 [facility] Comment on above: Performed By: #### C BC ####[facility] Xnljhemkzw282246 [address] [place], [place] [address]Dr. Tadeo Smyth CT ABD/PELV W CONon 06-06-[address] ABD/PELV W CON Normal [facility] ER URINE PROFILEon 2 Bilirubin Ql (U) Negative Normal NEGATIVE [facility] Comment on above: Performed By: #### Matthew FRANCISCO UMICRO ####[facility] Wbrnxeyycn970346 [address] [place], [place] [address]Dr. Tadeo Smyth Clarity (U) CLOUDY Abnormal CLEAR [facility] Comment on above: Performed By: #### Matthew FRANCISCO UMICRO ####[facility] Oklvpyltvz5409[address] [place], [place] [address]Dr. Tadeo Smyth Color (U) LT. YELLOW Normal YELLOW [facility] Comment on above: Performed By: #### RANDI MERCHANTICRO ####[facility] Innnbtxhlq088[address] [place], [place] [address]Dr. Tadeo CAMARGOD A micrscopic examina tion will be performed if indicated. Normal [facility] Comment on above: Performed By: #### Matthew FRANCISCO UMICRO ####[facility] Mkjxvhzedq353846 [address] [place], [place] [address]Dr. Tadeo Smyth Glucose Ql (U) Negative Normal NEGATIVE [facility] Comment on above: Performed By: #### Matthew FRANCISCO UMICRO ####[facility] Scvinfrwmn207946 [address] [place], [place] [address]Dr. Tadeo Smyth Hemoglobin Ql (U) TRACE-INTACT Abnormal NEGATIVE [facility] Comment on above: Performed By: #### Matthew FRANCISCO UMICRO ####[facility] Pidhjpzhec882846 [address] [place], [place] [address]Dr. Tadeo Smyth Ketones Ql (U) Negative Normal NEGATIVE [facility] Comment on above: Performed By: #### SANDRO MERCHANTRO ####[facility] Ljsyfysdmq6232 [place] [address]Dr. Tadeo Smyth LEUKOCYTES SMALL Abnormal NEGATIVE [facility] Comment on above: Performed By: #### KAROL MERCHANT ####[facility] Mwbfjhwckm8193 [place] [address]Dr. Tadeo Smyth Nitrite Ql (U) Negative Normal NEGATIVE [facility] Comment on above: Performed By: #### KAROL MERCHANT ####[facility] Iahhmuefcv8328 [place] [address]Dr. Tadeo Smyth pH (U) 6.0 [pH] Normal 5-9 [facility] Comment on above: Performed By: #### KAROL MERCHANT ####[facility] Gosggrjrjk5634 [place] [address]Dr. Tadeo Smyth SPEC GRAVITY 1.020 Normal 1.005-<=1.0 25 [facility] Comment on above: Performed By: #### KAROL MERCHANT ####[facility] Hfiruxqxqb7348 [place] [address]Dr. Tadeo Smyth UA PROTEIN Negative Normal NEGATIVE/ TRACE [facility] Comment on above: Performed By: #### KAROL MERCHANT ####[facility] Ihfjbagmrp7560[address] [place], [place] [address]Dr. Tadeo Smyth UR MICRO IND INDICATED Normal [facility] Comment on above: Performed By: #### KAROL MERCHANT ####[facility] Jmfbxilfqp674346 [address] [place], [place] [address]Dr. Tadeo Smyth Urobilinogen Qn (U) 0.2 {Benito'U}/dL Normal 0.2 - 1. 0 [facility] Comment on above: Performed By: #### KAROL MERCHANT ####[facility] Yqwbnhpcgw2039[address] [place], [place] [address]Dr. Tadeo Smyth LIPASEon 06-06-2022 Lipase [Catalytic activity/Vol] 100.0 U/L Normal 73.0-393.0 [facility] Comment on above: Performed By: #### A MY, LIPA ####[facility] Keoscwvjln9469 [place] [address]Dr. Tadeo Smyth PROF 14(COMP METB)on 022 Albumin [Mass/Vol] 3.3 g/dL Critically low 3.4-5.0 [facility] Comment on above: Performed By: #### C MP ####[facility] Mujelpuxnn6215 [place] [address]Dr. Tadeo Smyth Albumin/Globulin [Mass ratio] 0.9 {ratio} Normal [facility] Comment on above: Performed By: #### C MP ####[facility] Glaqxgebki478046 [address] [place], [place] [address]Dr. Tadeo Smyth ALP [Catalytic activity/Vol] 140 U/L Critically high 46-116 [facility] Comment on above: Performed By: #### C MP ####[facility] Ukdqfpokwo666446 [address] [place], [place] [address]Dr. Tadeo Smyth ALT [Catalytic activity/Vol] 23 U/L Normal 14-59 [facility] Comment on above: Performed By: #### C MP ####[facility] Nicihrxfzz312746 [address] [place], [place] [address]Dr. Tadeo Smyth Anion gap [Moles/Vol] 11.6 mmol/L Normal [facility] Comment on above: Performed By: #### C MP ####[facility] Pmhwczgsgu508546 [address] [place], [place] [address]Dr. Tadeo Smyth AST [Catalytic activity/Vol] 18 U/L Normal 15-37 [facility] Comment on above: Performed By: #### C MP ####[facility] Vtgqvbpukn621946 [address] [place], [place] [address]Dr. Tadeo Smyth Bilirubin [Mass/Vol] 0.2 mg/dL Normal 0.2-1.0 [facility] Comment on above: Performed By: #### C MP ####[facility] Vyastcfcih704146 [address] [place], [place] [address]Dr. Tadeo Smyth Calcium [Mass/Vol] 8.8 mg/dL Normal 8.5-10.1 [facility] Comment on above: Performed By: #### C MP ####[facility] Rmxlkvtjmp9375 [place] [address]Dr. Tadoe Smyth Chloride [Moles/Vol] 109 mmol/L Critically high 98-107 [facility] Comment on above: Performed By: #### C MP ####[facility] Awsgdvzdjy8042 [place] [address]Dr. Tadeo Smyth CO2 [Moles/Vol] 26.3 mmol/L Normal 21.0-32.0 [facility] Comment on above: Performed By: #### C MP ####[facility] Oqobvdubgk4428 [place] [address]Dr. Tadeo Smyth Creatinine [Mass/Vol] 0.81 mg/dL Normal 0.55-1.02 [facility] Comment on above: Performed By: #### C MP ####[facility] Xyyxlyxejm109246 [address] [place], [place] [address]Dr. Tadeo Smyth EGFR-AF TOGOLESE >60 Normal >=60 [facility] Comment on above: Performed By: #### C MP ####[facility] Vonwtqdcrp143246 [address] [place], [place] [address]Dr. Tadeo Smyth EGFR-NON AF TOGOLESE >60 Normal >=60 [facility] Comment on above: Performed By: #### C MP ####[facility] Jwckkhrkhg061146 [address] [place], [place] [address]Dr. Tadeo Smyth Globulin (S) [Mass/Vol] 3.7 g/dL Normal [facility] Comment on above: Performed By: #### C MP ####[facility] Ihluwbwqyi340946 [address] [place], [place] [address]Dr. Tadeo Smyth Glucose [Mass/Vol] 90 mg/dL Normal 74-106 [facility] Comment on above: Performed By: #### C MP ####[facility] Qsxbvcbaii844446 [address] [place], [place] [address]Dr. Tadeo Smyth Potassium [Moles/Vol] 3.9 mmol/L Normal 3.5-5.1 [facility] Comment on above: Performed By: #### C MP ####[facility] Dmouwnpfxp0906[address] [place], [place] [id number]. Tadeo Smyth Protein [Mass/Vol] 7.0 g/dL Normal 6.4-8.2 [facility] Comment on above: Performed By: #### C MP ####[facility] Dvirzpddrv4048 [place] [address]Dr. Margotnicole Smyth Sodium [Moles/Vol] 143 mmol/L Normal 136-145 [facility] Comment on above: Performed By: #### C MP ####[facility] Apoexpgdth9733 [place] [address]Dr. Tadeo Smyth Urea nitrogen [Mass/Vol] 12.0 mg/dL Normal 7.0-18.0 [facility] Comment on above: Performed By: #### C MP ####[facility] Foguzdcsnu866446 [address] [place], [place] [address]Dr. Tadeo Smyth Urea nitrogen/Creatinine [Mass ratio] 14.8 mg/mg Normal [facility] Comment on above: Performed By: #### C MP ####[facility] Wgjuyqjjob597746 [address] [place], [place] [address]Dr. Tadeo Smyth URINE MICROSCOPIC ONLYon BACTERIA LARGE Abnormal NONE SEEN [facility] Comment on above: Performed By: #### KAROL MERCHANT ####[facility] Eivnyizewe163046 [address] [place], [place] [address]Dr. Tadeo Smyth Bacteria identified Cx Nom (U) INDICATED Normal [facility] Comment on above: Performed By: #### SANDRO MERCHANTRO ####[facility] Pdmdxflzyc527146 [address] [place], [place] [address]Dr. Tadeo Smyth CAST NONE SEEN Normal NONE SEEN [facility] Comment on above: Performed By: #### SANDRO MERCHANTRO ####[facility] Hzzasyukrt631246 [address] [place], [place] [address]Dr. Tadeo Smyth Crystals LM Nom (Urine sed) NONE SEEN Normal NONE SEEN [facility] Comment on above: Performed By: #### SANDRO MERCHANTRO ####[facility] Ypgdezhnfp897[address] [place], [place] [address]Dr. Tadeo Smyth Epithelial cells LM Ql (Urine sed) RARE Normal NONE SEEN /RARE [facility] Comment on above: Performed By: #### RANDI MERCHANTICRO ####[facility] Wjmpwilawm3649 [place] [address]Dr. Tadeo Smyth MUCOUS TRACE Abnormal NONE SEEN [facility] Comment on above: Performed By: #### Matthew FRANCISCO UMICRO ####[facility] Rfemyeiegj027946 [address] [place], [place] [address]Dr. Margotnicole Haja RBC 0-2 Normal 0-2 [facility] Comment on above: Performed By: #### Matthew FRANCISCO UMICRO ####[facility] Egqksvmuvv875446 [address] [place], [place] [address]Dr. Tadeo Haja WBC 2-5 Abnormal NONE SEEN [facility] Comment on above: Performed By: #### SANDRO MERCHANTRO ####[facility] Dzikmbqosh545546 [address] [place], [place] [address]Dr. Tadeo Haja AMYLASEon 06-04-2022 Amylase [Catalytic activity/Vol] 61 U/L Normal 25-115 [facility] Comment on above: Performed By: #### A MY, CMP, LIPA ####[facility] Uzuvbbqfhs513146 [address] [place], [place] [address]Dr. Tadeo Haja CBC AUTO DIFFon 06-04-2022 BASO # 0.0 103/ul Normal 0.0-0.1 [facility] Comment on above: Performed By: #### C BC ####[facility] Cfsalgxxhq054746 [address] [place], [place] [address]Dr. Margotnicole Smyth Basophils/100 WBC (Bld) 0.5 % Normal 0.2-2.0 [facility] Comment on above: Performed By: #### C BC ####[facility] Qzyomnndhk954946 [address] [place], [place] [address]Dr. Tadeo Smyth EO # 0.3 103/ul Normal 0.0-0.7 [facility] Comment on above: Performed By: #### C BC ####[facility] Iscljkmdkj742346 [address] [place], [place] [address]Dr. Tadeo Smyth Eosinophils/100 WBC (Bld) 4.7 % Normal 0.9-7.0 [facility] Comment on above: Performed By: #### C BC ####[facility] Inkjgyvvfl813546 [address] [place], [place] [address]Dr. Tadeo Smyth Erythrocyte distribution width (RBC) [Ratio] 13.2 % Normal 11.0-15.0 [facility] Comment on above: Performed By: #### C BC ####[facility] Mnkrtrcyew477846 [address] [place], [place] [address]Dr. Tadeo Smyth Hematocrit (Bld) [Volume fraction] 36.9 % Normal 36.0-48.0 [facility] Comment on above: Performed By: #### C BC ####[facility] Fhafjsttub204146 [address] [place], [place] [address]Dr. Tadeo Smyth Hemoglobin (Bld) [Mass/Vol] 11.9 g/dL Critically low 12.0-16.0 [facility] Comment on above: Performed By: #### C BC ####[facility] Lwdbhchidw637746 [address] [place], [place] [address]Dr. Tadeo Smyth IG # 0.01 10e3/ul Normal 0.00-0.03 [facility] Comment on above: Performed By: #### C BC ####[facility] Aooziomjwx269646 [address] [place], [place] [address]Dr. Tadeo Smyth IG % 0.2 % Normal 0.0-0.5 [facility] Comment on above: Performed By: #### C BC ####[facility] Bqhjqwbiub703946 [address] [place], [place] [address]Dr. Tadeo Smyth LYMPH # 2.3 103/ul Normal 1.2-3.8 [facility] Comment on above: Performed By: #### C BC ####[facility] Nkrlgwnndd379446 [address] [place], [place] [address]Dr. Tadeo Smyth Lymphocytes/100 WBC (Bld) 37.3 % Normal 20.5-60.0 [facility] Comment on above: Performed By: #### C BC ####[facility] Dnxnfewksr287046 [address] [place], [place] [address]Dr. Tadeo Smyth MANUAL DIFF REQ NO Normal [facility] Comment on above: Performed By: #### C BC ####[facility] Elnptoimal5028 [place] [address]Dr. Tadeo Smyth MCH (RBC) [Entitic mass] 29.0 pg Normal 26.7-34.0 [facility] Comment on above: Performed By: #### C BC ####[facility] Mosanqmnyg2034[address] [place], [place] [address]Dr. Tadeo Smyth MCHC (RBC) [Mass/Vol] 32.2 g/dL Normal 29.9-35.2 [facility] Comment on above: Performed By: #### C BC ####[facility] Rifzqhygok0516[address] [place], [place] [address]Dr. Tadeo Smyth MCV (RBC) [Entitic vol] 90.0 fL Normal 81.0-99.0 [facility] Comment on above: Performed By: #### C BC ####[facility] Jxfhgiludv564046 [address] [place], [place] [address]Dr. Tadeo Smyth MONO # 0.4 103/ul Normal 0.3-0.8 [facility] Comment on above: Performed By: #### C BC ####[facility] Jkhlgnzvpr08364[address] [place], [place] [address]Dr. Tadeo Smyth Monocytes/100 WBC (Bld) 6.8 % Normal 1.7-12.0 [facility] Comment on above: Performed By: #### C BC ####[facility] Koyyicjizz7677[address] [place], [place] [address]DrNeo Smyth NEUT # 3.2 103/ul Normal 1.4-6.5 [facility] Comment on above: Performed By: #### C BC ####[facility] Ibjcmcbomv005[address] [place], [place] [address]DrNeo Smyth Neutrophils/100 WBC (Bld) 50.5 % Normal 43.0-75.0 [facility] Comment on above: Performed By: #### C BC ####[facility] Ovlivjbyig003846 [address] [place], [place] [address]Dr. Tadeo Smyth Platelet mean volume (Bld) [Entitic vol] 8.9 fL Critically low 9.5-13.5 [facility] Comment on above: Performed By: #### C BC ####[facility] Wvacfxhgfm9979 [place] [address]Dr. Tadeo Smyth PLT 387 103/ul Normal 150-450 [facility] Comment on above: Performed By: #### C BC ####[facility] Utskvfgqrf4093 [place] [address]Dr. Margotnicole Haja RBC 4.10 106/ul Critically low 4.20-5.40 [facility] Comment on above: Performed By: #### C BC ####[facility] Kdpuljbfrh6023 [place] [address]Dr. Tadeo Smyth WBC 6.2 103/ul Normal 4.0-11.0 [facility] Comment on above: Performed By: #### C BC ####[facility] Wgeufmqbgc1055[address] [place], [place] [address]Dr. Tadeo Smyth CT ABD/PELV W CONon 06-04-[address] ABD/PELV W CON Normal [facility] ER URINE PROFILEon 2 Bilirubin Ql (U) Negative Normal NEGATIVE [facility] Comment on above: Performed By: #### KAROL MERCHANT ####[facility] Kvraoujufv778346 [address] [place], [place] [address]Dr. Tadeo Symth Clarity (U) CLEAR Normal CLEAR [facility] Comment on above: Performed By: #### KAROL MERCHANT ####[facility] Ouhhymeclf8813 [place] [address]Dr. Tadeo Smyth Color (U) LT. YELLOW Normal YELLOW [facility] Comment on above: Performed By: #### KAROL MERCHANT ####[facility] Czujtqwpqp4416[address] [place], [place] [address]Dr. Tadeo Smyth ERUAHD A micrscopic examina tion will be performed if indicated. Normal [facility] Comment on above: Performed By: #### KAROL MERCHANT ####[facility] Tmkejnybcb9188[address] [place], [place] [id number]. Tadeo Smyth Glucose Ql (U) Negative Normal NEGATIVE [facility] Comment on above: Performed By: #### SANDRO MERCHANTRO ####[facility] Nudptxqpgf5509[address] [place], [place] [address]Dr. Tadeo Smyth Hemoglobin Ql (U) TRACE-INTACT Abnormal NEGATIVE [facility] Comment on above: Performed By: #### SANDRO MERCHANTRO ####[facility] Lcljkfovnr0788[address] [place], [place] [address]Dr. Tadeo Smyth Ketones Ql (U) Negative Normal NEGATIVE [facility] Comment on above: Performed By: #### SANDRO MERCHANTRO ####[facility] Bwoeosctuh640346 [address] [place], [place] [address]Dr. Tadeo Smyth LEUKOCYTES Negative Normal NEGATIVE [facility] Comment on above: Performed By: #### SANDRO MERCHANTRO ####[facility] Nrpkhdoenn9925[address] [place], [place] [address]Dr. Tadeo Smyth Nitrite Ql (U) Negative Normal NEGATIVE [facility] Comment on above: Performed By: #### SANDRO MERCHANTRO ####[facility] Gmaoupsutf124[address] [place], [place] [address]Dr. Tadeo Haja pH (U) 6.5 [pH] Normal 5-9 [facility] Comment on above: Performed By: #### SANDRO MERCHANTRO ####[facility] Tvyudpjppq8135[address] [place], [place] [address]Dr. Tadeo Smyth SPEC GRAVITY 1.015 Normal 1.005-<=1.0 25 [facility] Comment on above: Performed By: #### SANDRO MERCHANTRO ####[facility] Ndpjaarkqu878[address] [place], [place] [address]Dr. Tadeo Smyth UA PROTEIN Negative Normal NEGATIVE/ TRACE [facility] Comment on above: Performed By: #### SANDRO MERCHANTRO ####[facility] Hlfxdiygbz7659[address] [place], [place] [address]Dr. Tadeo Smyth UR MICRO IND INDICATED Normal [facility] Comment on above: Performed By: #### KAROL MERCHANT ####[facility] Msrcxxwdxt0579 [place] [address]Dr. Tadeo Smyth Urobilinogen Qn (U) 0.2 {Benito'U}/dL Normal 0.2 - 1. 0 [facility] Comment on above: Performed By: #### KAROL MERCHANT ####[facility] Gayeszaken3104 [place] [address]Dr. Margotnicole Smyth LIPASEon 06-04-2022 Lipase [Catalytic activity/Vol] 81.0 U/L Normal 73.0-393.0 [facility] Comment on above: Performed By: #### A MY, CMP, LIPA ####[facility] Dgmjahxoob[address] [place], [place] [address]Dr. Margotnicole Smyth PROF 14(COMP METB)on 022 Albumin [Mass/Vol] 3.6 g/dL Normal 3.4-5.0 [facility] Comment on above: Performed By: #### A MY, CMP, LIPA ####[facility] Nclspaqkrb3745 [place] [address]Dr. Margotnicole Smyth Albumin/Globulin [Mass ratio] 1.0 {ratio} Normal [facility] Comment on above: Performed By: #### A MY, CMP, LIPA ####[facility] Ddufgknctd9754 [place] [address]Dr. Margotnicole Smyht ALP [Catalytic activity/Vol] 150 U/L Critically high 46-116 [facility] Comment on above: Performed By: #### A MY, CMP, LIPA ####[facility] Pdmepmghvo0723 [place] [address]Dr. Tadeo Smyth ALT [Catalytic activity/Vol] 23 U/L Normal 14-59 [facility] Comment on above: Performed By: #### A MY, CMP, LIPA ####[facility] Awalbdihlx7099 [place] [address]Dr. Tadeo Smyth Anion gap [Moles/Vol] 13.2 mmol/L Normal [facility] Comment on above: Performed By: #### A MY, CMP, LIPA ####[facility] Dzfledswxa0226 [place] [address]Dr. Tadeo Smyth AST [Catalytic activity/Vol] 12 U/L Critically low 15-37 [facility] Comment on above: Performed By: #### A MY, CMP, LIPA ####[facility] Olzrahhqct7128 [place] [address]Dr. Tadeo Smyth Bilirubin [Mass/Vol] 0.1 mg/dL Critically low 0.2-1.0 [facility] Comment on above: Performed By: #### A MY, CMP, LIPA ####[facility] Odfpyxyalu[address] [place], [place] [address]Dr. Tadeo Smyth Calcium [Mass/Vol] 9.0 mg/dL Normal 8.5-10.1 [facility] Comment on above: Performed By: #### A MY, CMP, LIPA ####[facility] Dgvswmwdmt580[address] [place], [place] [address]Dr. Tadeo Smyth Chloride [Moles/Vol] 104 mmol/L Normal 98-107 [facility] Comment on above: Performed By: #### A MY, CMP, LIPA ####[facility] Whlvtxjjof879[address] [place], [place] [address]Dr. Tadeo Smyth CO2 [Moles/Vol] 26.6 mmol/L Normal 21.0-32.0 [facility] Comment on above: Performed By: #### A MY, CMP, LIPA ####[facility] Xjtxhfpvkm525346 [address] [place], [place] [address]Dr. Tadeo Smyth Creatinine [Mass/Vol] 0.97 mg/dL Normal 0.55-1.02 [facility] Comment on above: Performed By: #### A MY, CMP, LIPA ####[facility] Bnrxiheytg018246 [address] [place], [place] [address]Dr. Tadeo Smyth EGFR-AF TOGOLESE >60 Normal >=60 [facility] Comment on above: Performed By: #### A MY, CMP, LIPA ####[facility] Zzfpprpuih06[address] [place], [place] [address]Dr. Tadeo Smyth EGFR-NON AF TOGOLESE 60 mL/min/1.73m2 Normal >=60 [facility] Comment on above: Performed By: #### A MY, CMP, LIPA ####[facility] Yrjhlguane24[address] [place] [address]Dr. Tadeo Smyth Globulin (S) [Mass/Vol] 3.7 g/dL Normal [facility] Comment on above: Performed By: #### A MY, CMP, LIPA ####[facility] Quebueoqcl0899 [place] [address]Dr. Tadeo Smyth Glucose [Mass/Vol] 109 mg/dL Critically high 74-106 [facility] Comment on above: Performed By: #### A MY, CMP, LIPA ####[facility] Msgcpilsqz0968 [place] [address]Dr. Tadeo Smyth Potassium [Moles/Vol] 3.8 mmol/L Normal 3.5-5.1 [facility] Comment on above: Performed By: #### A MY, CMP, LIPA ####[facility] Yugflswojq5098 [place] [address]Dr. Tadeo Smyth Protein [Mass/Vol] 7.3 g/dL Normal 6.4-8.2 [facility] Comment on above: Performed By: #### A MY, CMP, LIPA ####[facility] Vkkhheytuv6860 [place] [address]Dr. Tadeo Smyth Sodium [Moles/Vol] 140 mmol/L Normal 136-145 [facility] Comment on above: Performed By: #### A MY, CMP, LIPA ####[facility] Udjosonsmb0271 [place] [address]Dr. Tadeo Smyth Urea nitrogen [Mass/Vol] 21.0 mg/dL Critically high 7.0-18.0 [facility] Comment on above: Performed By: #### A MY, CMP, LIPA ####[facility] Kjnlbcpdiy2388 [place] [address]Dr. Tadeo Smyth Urea nitrogen/Creatinine [Mass ratio] 21.6 mg/mg Normal [facility] Comment on above: Performed By: #### A MY, CMP, LIPA ####[facility] Vzjvwmcvhb9656 [place] [address]Dr. Tadeo Smyth URINE MICROSCOPIC ONLYon BACTERIA NONE SEEN Normal NONE SEEN [facility] Comment on above: Performed By: #### Matthew FRANCISCO UMICRO ####[facility] Owczionirp1578 [place] [address]Dr. Tadeo Smyth Bacteria identified Cx Nom (U) NOT INDICATED Normal [facility] Comment on above: Performed By: #### Matthew FRANCISCO UMICRO ####[facility] Utqqknejrn0457 [place] [address]Dr. Tadeo Smyth CAST NONE SEEN Normal NONE SEEN [facility] Comment on above: Performed By: #### RANDI MERCHANTICRO ####[facility] Bhnrmymfnm003[address] [place], [place] [address]Dr. Tadeo Smyth Crystals LM Nom (Urine sed) NONE SEEN Normal NONE SEEN [facility] Comment on above: Performed By: #### RANDI MERCHANTICRO ####[facility] Piqeftpvga0457[address] [place], [place] [address]Dr. Tadeo Smyth Epithelial cells LM Ql (Urine sed) FEW Abnormal NONE SEEN /RARE [facility] Comment on above: Performed By: #### Matthew FRANCISCO UMICRO ####[facility] Tjmncnmrum6413[address] [place], [place] [address]Dr. Tadeo Smyth MUCOUS NONE SEEN Normal NONE SEEN [facility] Comment on above: Performed By: #### SANDRO MERCHANTRO ####[facility] Ynwhpbdacc9[address] [place], [place] [address]Dr. Tadeo Smyth RBC 0-2 Normal 0-2 [facility] Comment on above: Performed By: #### Matthew FRANCISCO UMICRO ####[facility] Igafghzkee117946 [address] [place], [place] [address]Dr. Tadeo Smyth WBC NONE SEEN Normal NONE SEEN [facility] Comment on above: Performed By: #### Matthew FRANCISCO UMICRO ####[facility] Kpyhgamlna1516[address] [place], [place] [address]Dr. Tadeo Smyth MICRO OTHER TESTSOrdered By: Guillermo Rocha on 04-29-2022 Fecal WBC Lactoferrin Negative (04/29/22 8:00 AM) Normal Negative [facility] [place] Sero CULTURE URINEon 03-31-2022 CULTURE URINE Normal [facility] Comment on above: Performed By: #### U RCX ####[facility] Pdcvbasxof4637 [place] [address]Dr. Tadeo Haja CBC AUTO DIFFon 03-30-2022 BASO # 0.0 103/ul Normal 0.0-0.1 [facility] Comment on above: Performed By: #### C BC ####[facility] Byzzbbhwzv925246 [address] [place], [place] [address]Dr. Tadeo Smyth Basophils/100 WBC (Bld) 0.4 % Normal 0.2-2.0 [facility] Comment on above: Performed By: #### C BC ####[facility] Riiytufuyv353[address] [place], [place] [address]Dr. Tadeo Smyth EO # 0.3 103/ul Normal 0.0-0.7 [facility] Comment on above: Performed By: #### C BC ####[facility] Wicccdlpzx363446 [address] [place], [place] [address]Dr. Margotnicole Smyth Eosinophils/100 WBC (Bld) 5.1 % Normal 0.9-7.0 [facility] Comment on above: Performed By: #### C BC ####[facility] Ywmojpkeww490046 [address] [place], [place] [address]Dr. Tadeo Haja Erythrocyte distribution width (RBC) [Ratio] 12.8 % Normal 11.0-15.0 [facility] Comment on above: Performed By: #### C BC ####[facility] Jjnyvtklub455246 [address] [place], [place] [address]Dr. Margotnicole Smyth Hematocrit (Bld) [Volume fraction] 36.4 % Normal 36.0-48.0 [facility] Comment on above: Performed By: #### C BC ####[facility] Eysdqpvycd720[address] [place], [place] [address]Dr. Tadeo Haja Hemoglobin (Bld) [Mass/Vol] 12.0 g/dL Normal 12.0-16.0 [facility] Comment on above: Performed By: #### C BC ####[facility] Ssikhitnau5436 [place] [address]DrNeo Smyth IG # 0.02 10e3/ul Normal 0.00-0.03 [facility] Comment on above: Performed By: #### C BC ####[facility] Ujktgbkrib0096 [place] [address]DrNeo Smyth IG % 0.4 % Normal 0.0-0.5 [facility] Comment on above: Performed By: #### C BC ####[facility] Gngqrvyeyy697046 [address] [place], [place] [address]DrNeo Smyth LYMPH # 1.4 103/ul Normal 1.2-3.8 [facility] Comment on above: Performed By: #### C BC ####[facility] Ergajsktzl478746 [address] [place], [place] [address]DrNeo Smyth Lymphocytes/100 WBC (Bld) 25.5 % Normal 20.5-60.0 [facility] Comment on above: Performed By: #### C BC ####[facility] Usjvwvsata508[address] [place], [place] [address]DrNeo Smyth MANUAL DIFF REQ NO Normal [facility] Comment on above: Performed By: #### C BC ####[facility] Zzojmzhwdg9327[address] [place], [place] [address]DrNeo Smyth MCH (RBC) [Entitic mass] 29.1 pg Normal 26.7-34.0 [facility] Comment on above: Performed By: #### C BC ####[facility] Yvodthcwut859646 [address] [place], [place] [address]DrNeo Smyth MCHC (RBC) [Mass/Vol] 33.0 g/dL Normal 29.9-35.2 [facility] Comment on above: Performed By: #### C BC ####[facility] Bjxvvezlxi5147 [place] [address]DrNeo Smyth MCV (RBC) [Entitic vol] 88.3 fL Normal 81.0-99.0 [facility] Comment on above: Performed By: #### C BC ####[facility] Crheaurksg1289 [place] [id number]. Tadeo Smyth MONO # 0.4 103/ul Normal 0.3-0.8 [facility] Comment on above: Performed By: #### C BC ####[facility] Pvdircuieu5430 [place] [address]Dr. Tadeo Smyth Monocytes/100 WBC (Bld) 7.1 % Normal 1.7-12.0 [facility] Comment on above: Performed By: #### C BC ####[facility] Lcihfejpkx5695 [place] [address]Dr. Tadeo Smyth NEUT # 3.4 103/ul Normal 1.4-6.5 [facility] Comment on above: Performed By: #### C BC ####[facility] Ubcuascdub856746 [address] [place], [place] [address]Dr. Tadeo Smyth Neutrophils/100 WBC (Bld) 61.5 % Normal 43.0-75.0 [facility] Comment on above: Performed By: #### C BC ####[facility] Kvqabhtdfu2909 [place] [address]Dr. Tadeo Smyth Platelet mean volume (Bld) [Entitic vol] 8.8 fL Critically low 9.5-13.5 [facility] Comment on above: Performed By: #### C BC ####[facility] Dyqlyfxqmx0963 [place] [address]Dr. Tadeo Smyth PLT 324 103/ul Normal 150-450 [facility] Comment on above: Performed By: #### C BC ####[facility] Bfkubokjzc5961 [place] [address]Dr. Tadeo Smyth RBC 4.12 106/ul Critically low 4.20-5.40 [facility] Comment on above: Performed By: #### C BC ####[facility] Ywmwlgwfdt1140 [place] [address]Dr. Tadeo Smyth WBC 5.5 103/ul Normal 4.0-11.0 [facility] Comment on above: Performed By: #### C BC ####[facility] Fsuczhhrle9057 [place] [address]Dr. Tadeo Smyth PROF 14(COMP METB)on 022 Albumin [Mass/Vol] 3.1 g/dL Critically low 3.4-5.0 [facility] Comment on above: Performed By: #### C MP ####[facility] Famxetalpm6348 [place] [address]Dr. Tadeo Smyth Albumin/Globulin [Mass ratio] 0.9 {ratio} Normal [facility] Comment on above: Performed By: #### C MP ####[facility] Slcaspbefo534[address] [place], [place] [address]Dr. Tadeo Smyth ALP [Catalytic activity/Vol] 119 U/L Critically high 46-116 [facility] Comment on above: Performed By: #### C MP ####[facility] Vsqhgtayyi887246 [address] [place], [place] [address]Dr. Tadeo Smyth ALT [Catalytic activity/Vol] 17 U/L Normal 14-59 [facility] Comment on above: Performed By: #### C MP ####[facility] Pypkkqqwdo6023[address] [place], [place] [address]Dr. Tadeo Smyth Anion gap [Moles/Vol] 12.0 mmol/L Normal [facility] Comment on above: Performed By: #### C MP ####[facility] Rupxmdkweg755[address] [place], [place] [address]Dr. Tadeo Smyth AST [Catalytic activity/Vol] 16 U/L Normal 15-37 [facility] Comment on above: Performed By: #### C MP ####[facility] Wttccbjewm6516[address] [place], [place] [address]Dr. Tadeo Smyth Bilirubin [Mass/Vol] 0.4 mg/dL Normal 0.2-1.0 [facility] Comment on above: Performed By: #### C MP ####[facility] Nncttcztzc98[address] [place], [place] [address]Dr. Tadeo Smyth Calcium [Mass/Vol] 8.9 mg/dL Normal 8.5-10.1 [facility] Comment on above: Performed By: #### C MP ####[facility] Fxicqcqlmh8823 [place] [address]Dr. Tadeo Smyth Chloride [Moles/Vol] 107 mmol/L Normal 98-107 [facility] Comment on above: Performed By: #### C MP ####[facility] Taeparctel1981 [place] [address]Dr. Tadeo Smyth CO2 [Moles/Vol] 26.9 mmol/L Normal 21.0-32.0 [facility] Comment on above: Performed By: #### C MP ####[facility] Tzzzxmtdqm4116 [place] [address]Dr. Tadeo Smyth Creatinine [Mass/Vol] 0.82 mg/dL Normal 0.55-1.02 [facility] Comment on above: Performed By: #### C MP ####[facility] Snjxrxnzwk7783 [place] [address]Dr. Tadeo Smyth EGFR-AF TOGOLESE >60 Normal >=60 [facility] Comment on above: Performed By: #### C MP ####[facility] Fuawmscyom8717 [place] [address]Dr. Tadeo Smyth EGFR-NON AF TOGOLESE >60 Normal >=60 [facility] Comment on above: Performed By: #### C MP ####[facility] Ggxseddcoz2948 [place] [address]Dr. Tadeo Smyth Globulin (S) [Mass/Vol] 3.5 g/dL Normal [facility] Comment on above: Performed By: #### C MP ####[facility] Cffawlacje1424 [place] [address]Dr. Tadeo Smyth Glucose [Mass/Vol] 104 mg/dL Normal 74-106 [facility] Comment on above: Performed By: #### C MP ####[facility] Mqpkdxnfkw512746 [address] [place], [place] [address]Dr. Tadeo Smyth Potassium [Moles/Vol] 3.9 mmol/L Normal 3.5-5.1 [facility] Comment on above: Performed By: #### C MP ####[facility] Lxqpsyixjz4294 [place] [id number]. Tadeo Smyth Protein [Mass/Vol] 6.6 g/dL Normal 6.4-8.2 [facility] Comment on above: Performed By: #### C MP ####[facility] Bwqkmtcfjj9623 [place] [address]Dr. Tadeo Smyth Sodium [Moles/Vol] 142 mmol/L Normal 136-145 [facility] Comment on above: Performed By: #### C MP ####[facility] Joyxeuuwvg4758 [place] [address]Dr. Tadeo Smyth Urea nitrogen [Mass/Vol] 5.0 mg/dL Critically low 7.0-18.0 [facility] Comment on above: Performed By: #### C MP ####[facility] Cycahwskva218[address] [place], [place] [address]Dr. Tadeo Smyth Urea nitrogen/Creatinine [Mass ratio] 6.1 mg/mg Normal [facility] Comment on above: Performed By: #### C MP ####[facility] Cjnihcabxg5335[address] [place], [place] [address]Dr. Tadeo Smyth CBC AUTO DIFFon 03-29-2022 BASO # 0.0 103/ul Normal 0.0-0.1 [facility] Comment on above: Performed By: #### C BC ####[facility] Drnbdcwmni5834 [place] [address]Dr. Tadeo Smyth Basophils/100 WBC (Bld) 0.4 % Normal 0.2-2.0 [facility] Comment on above: Performed By: #### C BC ####[facility] Rzrntjexss6097[address] [place], [place] [address]Dr. Tadeo Smyth EO # 0.2 103/ul Normal 0.0-0.7 [facility] Comment on above: Performed By: #### C BC ####[facility] Nvrmsqeana204746 [address] [place], [place] [address]Dr. Tadeo Smyth Eosinophils/100 WBC (Bld) 4.3 % Normal 0.9-7.0 [facility] Comment on above: Performed By: #### C BC ####[facility] Imopadfjkw6354 [place] [address]Dr. Tadeo Smyth Erythrocyte distribution width (RBC) [Ratio] 12.9 % Normal 11.0-15.0 [facility] Comment on above: Performed By: #### C BC ####[facility] Dskfdykfzb0726 [place] [address]Dr. Tadeo Smyth Hematocrit (Bld) [Volume fraction] 33.8 % Critically low 36.0-48.0 [facility] Comment on above: Performed By: #### C BC ####[facility] Uqivkkvitt537[address] [place], [place] [address]Dr. Tadeo Smyth Hemoglobin (Bld) [Mass/Vol] 11.1 g/dL Critically low 12.0-16.0 [facility] Comment on above: Performed By: #### C BC ####[facility] Zvmkqfixss8423[address] [place], [place] [address]Dr. Tadoe Smyht IG # 0.01 10e3/ul Normal 0.00-0.03 [facility] Comment on above: Performed By: #### C BC ####[facility] Egfjiborfj5739[address] [place], [place] [address]Dr. Tadeo Smyth IG % 0.2 % Normal 0.0-0.5 [facility] Comment on above: Performed By: #### C BC ####[facility] Zhkhoitixi9647[address] [place], [place] [address]Dr. Tadeo Smyth LYMPH # 1.5 103/ul Normal 1.2-3.8 [facility] Comment on above: Performed By: #### C BC ####[facility] Sccfpbvhmt607[address] [place], [place] [address]Dr. Tadeo Smyth Lymphocytes/100 WBC (Bld) 29.9 % Normal 20.5-60.0 [facility] Comment on above: Performed By: #### C BC ####[facility] Hlxbqmusvx45264[address] [place], [place] [address]Dr. Tadeo Smyth MANUAL DIFF REQ NO Normal [facility] Comment on above: Performed By: #### C BC ####[facility] Rpsyeenwgt0439 [place] [id number]. Tadeo Smyth MCH (RBC) [Entitic mass] 29.3 pg Normal 26.7-34.0 [facility] Comment on above: Performed By: #### C BC ####[facility] Ikbpfpkedu7576 [place] [address]Dr. Tadeo Smyth MCHC (RBC) [Mass/Vol] 32.8 g/dL Normal 29.9-35.2 [facility] Comment on above: Performed By: #### C BC ####[facility] Cmnvuraidr2756 [place] [address]Dr. Tadeo Smyth MCV (RBC) [Entitic vol] 89.2 fL Normal 81.0-99.0 [facility] Comment on above: Performed By: #### C BC ####[facility] Dzrqawfjtk146[address] [place], [place] [address]Dr. Tadeo Smyth MONO # 0.4 103/ul Normal 0.3-0.8 [facility] Comment on above: Performed By: #### C BC ####[facility] Gjuyekijlm9016 [place] [address]Dr. Margotnicole Smyth Monocytes/100 WBC (Bld) 7.8 % Normal 1.7-12.0 [facility] Comment on above: Performed By: #### C BC ####[facility] Nsmnwrgpip73[address] [place], [place] [address]Dr. Tadeo Smyth NEUT # 2.8 103/ul Normal 1.4-6.5 [facility] Comment on above: Performed By: #### C BC ####[facility] Dfnwvvpavp06[address] [place], [place] [address]Dr. Margotnicole Smyth Neutrophils/100 WBC (Bld) 57.4 % Normal 43.0-75.0 [facility] Comment on above: Performed By: #### C BC ####[facility] Yasemodzrj575[address] [place], [place] [address]Dr. Tadeo Haja Platelet mean volume (Bld) [Entitic vol] 8.9 fL Critically low 9.5-13.5 [facility] Comment on above: Performed By: #### C BC ####[facility] Cswvpjrfmn5417 [place] [id number]. Tadeo Smyth PLT 314 103/ul Normal 150-450 [facility] Comment on above: Performed By: #### C BC ####[facility] Yikuutgiid6862 [place] [address]Dr. Tadeo Smyth RBC 3.79 106/ul Critically low 4.20-5.40 [facility] Comment on above: Performed By: #### C BC ####[facility] Xsxaieskof3812 [place] [address]Dr. Tadeo Smyth WBC 4.9 103/ul Normal 4.0-11.0 [facility] Comment on above: Performed By: #### C BC ####[facility] Axbghbbrzk0289 [place] [address]Dr. Margotnicole Smyth PROF 14(COMP METB)on 022 Albumin [Mass/Vol] 2.8 g/dL Critically low 3.4-5.0 [facility] Comment on above: Performed By: #### C MP ####[facility] Ezwfqzmawp6652 [place] [address]Dr. Tadeo Smyth Albumin/Globulin [Mass ratio] 0.8 {ratio} [facility] Comment on above: Performed By: #### C MP ####[facility] Ozicnoxjdv5025 [place] [address]Dr. Tadeo Haja ALP [Catalytic activity/Vol] 117 U/L Critically high 46-116 [facility] Comment on above: Performed By: #### C MP ####[facility] Hlipvebygi0993 [place] [address]Dr. Tadeo Haja ALT [Catalytic activity/Vol] 13 U/L Critically low 14-59 [facility] Comment on above: Performed By: #### C MP ####[facility] Ukznyawdic1669 [place] [address]Dr. Tadeo Haja Anion gap [Moles/Vol] 8.7 mmol/L Normal [facility] Comment on above: Performed By: #### C MP ####[facility] Xtrcuvrpjm1888 [place] [address]Dr. Tadeo Smyth AST [Catalytic activity/Vol] 12 U/L Critically low 15-37 [facility] Comment on above: Performed By: #### C MP ####[facility] Cnrkltisre6908 [place] [address]Dr. Tadeo Smyth Bilirubin [Mass/Vol] 0.4 mg/dL Normal 0.2-1.0 [facility] Comment on above: Performed By: #### C MP ####[facility] Ruirxhavcy745[address] [place], [place] [address]Dr. Tadeo Smyth Calcium [Mass/Vol] 8.5 mg/dL Normal 8.5-10.1 [facility] Comment on above: Performed By: #### C MP ####[facility] Cmdneyuqpo197[address] [place], [place] [address]Dr. Tadeo Smyth Chloride [Moles/Vol] 108 mmol/L Critically high 98-107 [facility] Comment on above: Performed By: #### C MP ####[facility] Qgewizrmgt790[address] [place], [place] [address]Dr. Tadeo Smyth CO2 [Moles/Vol] 28.0 mmol/L Normal 21.0-32.0 [facility] Comment on above: Performed By: #### C MP ####[facility] Ulvupzloqs668[address] [place], [place] [address]Dr. Tadeo Smyth Creatinine [Mass/Vol] 0.74 mg/dL Normal 0.55-1.02 [facility] Comment on above: Performed By: #### C MP ####[facility] Qlxdqyznis8036 [place] [id number]. Tadeo Smyth EGFR-AF TOGOLESE >60 Normal >=60 [facility] Comment on above: Performed By: #### C MP ####[facility] Fzruwhqtsg815[address] [place], [place] [address]Dr. Tadeo Smyth EGFR-NON AF TOGOLESE >60 Normal >=60 [facility] Comment on above: Performed By: #### C MP ####[facility] Dydqzcsuxn435[address] [place], [place] [address]Dr. Tadeo Smyth Globulin (S) [Mass/Vol] 3.4 g/dL Normal [facility] Comment on above: Performed By: #### C MP ####[facility] Ubqilpbeam2344 [place] [address]Dr. Tadeo Smyth Glucose [Mass/Vol] 107 mg/dL Critically high 74-106 [facility] Comment on above: Performed By: #### C MP ####[facility] Vokehdwweu6616 [place] [address]Dr. Tadeo Smyth Potassium [Moles/Vol] 3.7 mmol/L Normal 3.5-5.1 [facility] Comment on above: Performed By: #### C MP ####[facility] Ltqgzdcnef0768 [place] [address]Dr. Tadeo Smyth Protein [Mass/Vol] 6.2 g/dL Critically low 6.4-8.2 [facility] Comment on above: Performed By: #### C MP ####[facility] Ohdbwojhpt020[address] [place], [place] [address]Dr. Tadeo Smyth Sodium [Moles/Vol] 141 mmol/L Normal 136-145 [facility] Comment on above: Performed By: #### C MP ####[facility] Cvwmdlcszu87[address] [place], [place] [address]Dr. Tadeo Smyth Urea nitrogen [Mass/Vol] 7.0 mg/dL Normal 7.0-18.0 [facility] Comment on above: Performed By: #### C MP ####[facility] Hhegpodqie5537 [place] [address]Dr. Tadeo Smyth Urea nitrogen/Creatinine [Mass ratio] 9.5 mg/mg Normal [facility] Comment on above: Performed By: #### C MP ####[facility] Vhzxbgqlre7898 [place] [address]Dr. Tadeo Haja XR KUB 1 VIEWon 03-29-2022 XR KUB 1 VIEW Normal [facility] CBC AUTO DIFFon 03-28-2022 BASO # 0.0 103/ul Normal 0.0-0.1 [facility] Comment on above: Performed By: #### C BC ####[facility] Hrsxijwuav3297 [place] [id number]. Tadeo Smyth Basophils/100 WBC (Bld) 0.7 % Normal 0.2-2.0 [facility] Comment on above: Performed By: #### C BC ####[facility] Hwlyaypspb45[address] [place], [place] [id number]. Tadeo Smyth EO # 0.2 103/ul Normal 0.0-0.7 [facility] Comment on above: Performed By: #### C BC ####[facility] Pyojajvdlf1804[address] [place], [place] [address]Dr. Tadeo Smyth Eosinophils/100 WBC (Bld) 3.3 % Normal 0.9-7.0 [facility] Comment on above: Performed By: #### C BC ####[facility] Fsmyipdzff54[address] [place], [place] [address]Dr. Tadeo Smyth Erythrocyte distribution width (RBC) [Ratio] 13.2 % Normal 11.0-15.0 [facility] Comment on above: Performed By: #### C BC ####[facility] Hdetepakjf4620[address] [place], [place] [address]Dr. Tadeo Smyth Hematocrit (Bld) [Volume fraction] 34.2 % Critically low 36.0-48.0 [facility] Comment on above: Performed By: #### C BC ####[facility] Ylmzsshcjv90[address] [place], [place] [address]Dr. Tadeo Smyth Hemoglobin (Bld) [Mass/Vol] 10.8 g/dL Critically low 12.0-16.0 [facility] Comment on above: Performed By: #### C BC ####[facility] Coqvlkiaol7[address] [place], [place] [address]Dr. Tadeo Smyth IG # 0.01 10e3/ul Normal 0.00-0.03 [facility] Comment on above: Performed By: #### C BC ####[facility] Gjrstlsopx[address] [place], [place] [id number]. Tadeo Smyth IG % 0.2 % Normal 0.0-0.5 [facility] Comment on above: Performed By: #### C BC ####[facility] Yqbmbextpf7242 [place] [id number]. Tadeo Haja LYMPH # 1.3 103/ul Normal 1.2-3.8 [facility] Comment on above: Performed By: #### C BC ####[facility] Mdrtpolrdg7809 [place] [id number]. Tadeo Smyth Lymphocytes/100 WBC (Bld) 28.4 % Normal 20.5-60.0 [facility] Comment on above: Performed By: #### C BC ####[facility] Qyskmvodhc15[address] [place], [place] [address]Dr. Tadeo Smyth MANUAL DIFF REQ NO Normal [facility] Comment on above: Performed By: #### C BC ####[facility] Pqbbzrizwn7[address] [place], [place] [address]Dr. Tadeo Smyth MCH (RBC) [Entitic mass] 28.3 pg Normal 26.7-34.0 [facility] Comment on above: Performed By: #### C BC ####[facility] Djkpyfbplu59[address] [place], [place] [address]Dr. Margotnicole Smyth MCHC (RBC) [Mass/Vol] 31.6 g/dL Normal 29.9-35.2 [facility] Comment on above: Performed By: #### C BC ####[facility] Rgbhfsihwr2227 [place] [id number]. Tadeo Smyth MCV (RBC) [Entitic vol] 89.5 fL Normal 81.0-99.0 [facility] Comment on above: Performed By: #### C BC ####[facility] Svessacnlr4935 [place] [id number]. Tadeo Smyth MONO # 0.3 103/ul Normal 0.3-0.8 [facility] Comment on above: Performed By: #### C BC ####[facility] Zikyycqwws9998 [place] [id number]. Tadeo Smyth Monocytes/100 WBC (Bld) 5.5 % Normal 1.7-12.0 [facility] Comment on above: Performed By: #### C BC ####[facility] Atzrvtyfiu9036 [place] [id number]. Tadeo Smyth NEUT # 2.8 103/ul Normal 1.4-6.5 [facility] Comment on above: Performed By: #### C BC ####[facility] Ncvhnfpxsa6184 [place] [id number]. Tadeo Smyth Neutrophils/100 WBC (Bld) 61.9 % Normal 43.0-75.0 [facility] Comment on above: Performed By: #### C BC ####[facility] Qlsyfdkmyg3308 [place] [id number]. Tadeo Haja Platelet mean volume (Bld) [Entitic vol] 9.1 fL Critically low 9.5-13.5 [facility] Comment on above: Performed By: #### C BC ####[facility] Mjxfjqvozk2752 [place] [address]Dr. Tadeo Smyth PLT 327 103/ul Normal 150-450 [facility] Comment on above: Performed By: #### C BC ####[facility] Syjggsfgvp6470 [place] [id number]. Tadeo Haja RBC 3.82 106/ul Critically low 4.20-5.40 [facility] Comment on above: Performed By: #### C BC ####[facility] Miokjsiter0859 [place] [address]Dr. Tadeo Smyth WBC 4.5 103/ul Normal 4.0-11.0 [facility] Comment on above: Performed By: #### C BC ####[facility] Iywqgdhgib4069 [place] [id number] Smyth POINT OF CARE GLUCOSEon 03-06 Glucose [Mass/Vol] 84 mg/dL Normal 74-106 [facility] Comment on above: Performed By: #### P OCGLUC ####[facility] Qruefxkoyc5510 [place] [address]DrNeo Smyth PROF 14(COMP METB)on 022 Albumin [Mass/Vol] 2.9 g/dL Critically low 3.4-5.0 [facility] Comment on above: Performed By: #### C MP ####[facility] Zeoovtlwwe3645 [place] [address]Dr. Tadeo Haja Albumin/Globulin [Mass ratio] 0.9 {ratio} Normal [facility] Comment on above: Performed By: #### C MP ####[facility] Yvfgkqsyuy6082 [place] [address]Dr. Tadeo Haja ALP [Catalytic activity/Vol] 119 U/L Critically high 46-116 [facility] Comment on above: Performed By: #### C MP ####[facility] Omvatfpvji423[address] [place], [place] [address]Dr. Tadeo Haja ALT [Catalytic activity/Vol] 15 U/L Normal 14-59 [facility] Comment on above: Performed By: #### C MP ####[facility] Xsltnpeevx172[address] [place], [place] [address]Dr. Tadeo Smyth Anion gap [Moles/Vol] 7.9 mmol/L Normal [facility] Comment on above: Performed By: #### C MP ####[facility] Pdbjzvtxyc324[address] [place], [place] [address]Dr. Tadeo Haja AST [Catalytic activity/Vol] 11 U/L Critically low 15-37 [facility] Comment on above: Performed By: #### C MP ####[facility] Geckedogbl9199[address] [place], [place] [address]Dr. Tadeo Smyth Bilirubin [Mass/Vol] 0.4 mg/dL Normal 0.2-1.0 [facility] Comment on above: Performed By: #### C MP ####[facility] Dpbaegfaay064[address] [place], [place] [address]Dr. Tadeo Smyth Calcium [Mass/Vol] 8.7 mg/dL Normal 8.5-10.1 [facility] Comment on above: Performed By: #### C MP ####[facility] Xtnsnnvmsr5950[address] [place], [place] [address]Dr. Tadeo Smyth Chloride [Moles/Vol] 109 mmol/L Critically high 98-107 [facility] Comment on above: Performed By: #### C MP ####[facility] Mnrlujuzzg0131 [place] [address]Dr. Tadeo Smyth CO2 [Moles/Vol] 27.9 mmol/L Normal 21.0-32.0 [facility] Comment on above: Performed By: #### C MP ####[facility] Vccopqysse1818 [place] [address]Dr. Tadeo Smyth Creatinine [Mass/Vol] 0.75 mg/dL Normal 0.55-1.02 [facility] Comment on above: Performed By: #### C MP ####[facility] Tejjzuieei1891 [place] [address]Dr. Tadeo Smyth EGFR-AF TOGOLESE >60 Normal >=60 [facility] Comment on above: Performed By: #### C MP ####[facility] Ouoedrxodk4646 [place] [address]Dr. Tadeo Smyth EGFR-NON AF TOGOLESE >60 Normal >=60 [facility] Comment on above: Performed By: #### C MP ####[facility] Szsoeqgpsx1412 [place] [address]Dr. Tadeo Smyth Globulin (S) [Mass/Vol] 3.3 g/dL Normal [facility] Comment on above: Performed By: #### C MP ####[facility] Dsznmfkcve6926 [place] [address]Dr. Tadeo Smyth Glucose [Mass/Vol] 95 mg/dL Normal 74-106 [facility] Comment on above: Performed By: #### C MP ####[facility] Iqnzdrsoft0143 [place] [address]Dr. Tadeo Smyth Potassium [Moles/Vol] 3.8 mmol/L Normal 3.5-5.1 [facility] Comment on above: Performed By: #### C MP ####[facility] Limvjreweh4136 [place] [address]Dr. Tadeo Smyth Protein [Mass/Vol] 6.2 g/dL Critically low 6.4-8.2 [facility] Comment on above: Performed By: #### C MP ####[facility] Kifcplvlhe5561 [place] [address]Dr. Tadeo Smyth Sodium [Moles/Vol] 141 mmol/L Normal 136-145 [facility] Comment on above: Performed By: #### C MP ####[facility] Ivdzdwsyur0507 [place] [address]Dr. Tadeo Smyth Urea nitrogen [Mass/Vol] 8.0 mg/dL Normal 7.0-18.0 [facility] Comment on above: Performed By: #### C MP ####[facility] Rhsmmvquxb5014 [place] [address]Dr. Tadeo Smyth Urea nitrogen/Creatinine [Mass ratio] 10.7 mg/mg Normal [facility] Comment on above: Performed By: #### C MP ####[facility] Etdknhiluv208346 [address] [place], [place] [address]Dr. Tadeo Smyth UA (CLEAN/CATCH) HUMAN RESOURCES EXECUTIVE ASSISTANT/MICRO I F IND.on 03-28-2022 Bilirubin Ql (U) Negative Normal NEGATIVE [facility] Comment on above: Performed By: #### U MARE ICRO ####[facility] Piamwakkla2631 [place] [address]Dr. Tadeo Smyth Clarity (U) SL CLOUDY Abnormal CLEAR [facility] Comment on above: Performed By: #### U ACSBLANE ICRO ####[facility] Xkefnwhkuy6537 [place] [address]Dr. Tadeo Smyth Color (U) LT. YELLOW Normal YELLOW [facility] Comment on above: Performed By: #### U ACSBLANE ICRO ####[facility] Tqogormpml3400 [place] [address]Dr. Tadeo Smyth Glucose Ql (U) Negative Normal NEGATIVE [facility] Comment on above: Performed By: #### U ACSBLANE ICRO ####[facility] Yusyzjsprg7047 [place] [address]Dr. Tadeo Smyth Hemoglobin Ql (U) TRACE-INTACT Abnormal NEGATIVE [facility] Comment on above: Performed By: #### U ACSBLANE UMICRO ####[facility] Vxmsshxalp4936 [place] [address]Dr. Tadeo Smyth Ketones Ql (U) TRACE Abnormal NEGATIVE [facility] Comment on above: Performed By: #### U MARE UMICRO ####[facility] Gqssleplpo4844 [place] [address]Dr. Tadeo Smyth LEUKOCYTES Negative Normal NEGATIVE [facility] Comment on above: Performed By: #### U MARE UMICRO ####[facility] Bhtdihodbn3416 [place] [address]Dr. Tadeo Smyth Nitrite Ql (U) Negative Normal NEGATIVE [facility] Comment on above: Performed By: #### U MARE ICRO ####[facility] Spjobfndaa716[address] [place], [place] [address]Dr. Tadeo Smyth pH (U) 6.5 [pH] Normal 5-9 [facility] Comment on above: Performed By: #### U MARE ICRO ####[facility] Cginbswcwv8734[address] [place], [place] [address]Dr. Tadeo Smyth SPEC GRAVITY 1.015 Normal 1.005-<=1.0 25 [facility] Comment on above: Performed By: #### U MARE ICRO ####[facility] Npltlbwgpy5218[address] [place], [place] [address]Dr. Tadeo Smyth UA PROTEIN Negative Normal NEGATIVE/ TRACE [facility] Comment on above: Performed By: #### U MARE ICRO ####[facility] Nhwfzpztja40[address] [place], [place] [address]Dr. Tadeo Smyth UR MICRO IND INDICATED Normal [facility] Comment on above: Performed By: #### U MARE UMICRO ####[facility] Mpzzuxyhhh8645[address] [place], [place] [address]Dr. Tadeo Smyth Urobilinogen Qn (U) 0.2 {Benito'U}/dL Normal 0.2 - 1. 0 [facility] Comment on above: Performed By: #### U MARE UMICRO ####[facility] Oedflafegl35[address] [place], [place] [address]Dr. Tadeo Smyth URINE MICROSCOPIC ONLYon BACTERIA MODERATE Abnormal NONE SEEN [facility] Comment on above: Performed By: #### U ACSBLANE UMICRO ####[facility] Iudqajubot3055 [place] [address]Dr. Tadeo Smyth Bacteria identified Cx Nom (U) INDICATED Normal [facility] Comment on above: Performed By: #### U ACSBLANE UMICRO ####[facility] Wtphcrovsr3590 [place] [address]Dr. Tadeo Smyth CAST NONE SEEN Normal NONE SEEN [facility] Comment on above: Performed By: #### U ACSBLANE UMICRO ####[facility] Fswrlnqisy7213 [place] [address]Dr. Tadeo Smyth Crystals LM Nom (Urine sed) NONE SEEN Normal NONE SEEN [facility] Comment on above: Performed By: #### U ACSBLANE UMICRO ####[facility] Jucszwgciz2334 [place] [address]Dr. Tadeo Smyth Epithelial cells LM Ql (Urine sed) RARE Normal NONE SEEN /RARE [facility] Comment on above: Performed By: #### U ACSBLANE UMICRO ####[facility] Aqszzdmtid0819 [place] [address]Dr. Tadeo Smyth MUCOUS NONE SEEN Normal NONE SEEN [facility] Comment on above: Performed By: #### U ACSBLANE UMICRO ####[facility] Phtxukbyty2436 [place] [address]Dr. Tadeo Smyth RBC NONE SEEN Abnormal 0-2 [facility] Comment on above: Performed By: #### U ACSBLANE UMICRO ####[facility] Hkslholcyl7626 [place] [address]Dr. Tadeo Smyth WBC 2-5 Abnormal NONE SEEN [facility] Comment on above: Performed By: #### U ACSBLANE, UMICRO ####[facility] Yaqzqvgfig4246 [place] [address]Dr. Tadeo Smyth XR ABD FLAT UP_PA Ksaey 03-28 XR ABD FLAT UP_PA CH Normal [facility] CBC AUTO DIFFon 03-27-2022 BASO # 0.0 103/ul Normal 0.0-0.1 [facility] Comment on above: Performed By: #### C BC ####[facility] Njyirynusz301[address] [place], [place] [address]Dr. Tadeo Smyth Basophils/100 WBC (Bld) 0.5 % Normal 0.2-2.0 [facility] Comment on above: Performed By: #### C BC ####[facility] Nnnscvfzij5579[address] [place], [place] [address]Dr. Margotnicole Haja EO # 0.2 103/ul Normal 0.0-0.7 [facility] Comment on above: Performed By: #### C BC ####[facility] Kxupaoaclr685046 [address] [place], [place] [address]Dr. Margotnicole Haja Eosinophils/100 WBC (Bld) 3.2 % Normal 0.9-7.0 [facility] Comment on above: Performed By: #### C BC ####[facility] Ugsftbvwkr0120[address] [place], [place] [address]Dr. Margotnicole Smyth Erythrocyte distribution width (RBC) [Ratio] 13.1 % Normal 11.0-15.0 [facility] Comment on above: Performed By: #### C BC ####[facility] Uanxsihrpw207846 [address] [place], [place] [address]Dr. Margotnicole Smyth Hematocrit (Bld) [Volume fraction] 34.8 % Critically low 36.0-48.0 [facility] Comment on above: Performed By: #### C BC ####[facility] Vwyvqhioaj446[address] [place], [place] [address]Dr. Tadeo Smyth Hemoglobin (Bld) [Mass/Vol] 11.3 g/dL Critically low 12.0-16.0 [facility] Comment on above: Performed By: #### C BC ####[facility] Cullllrdvh056346 [address] [place], [place] [address]Dr. Tadeo Smyth IG # 0.01 10e3/ul Normal 0.00-0.03 [facility] Comment on above: Performed By: #### C BC ####[facility] Vcquhdmpzq6499 [place] [address]Dr. Margotnicole Smyth IG % 0.2 % Normal 0.0-0.5 [facility] Comment on above: Performed By: #### C BC ####[facility] Rahahxgxbu0688 [place] [address]Dr. Tadeo Smyth LYMPH # 1.6 103/ul Normal 1.2-3.8 [facility] Comment on above: Performed By: #### C BC ####[facility] Gqwjuzljrw505[address] [place], [place] [address]Dr. Margotnicole Smyth Lymphocytes/100 WBC (Bld) 29.1 % Normal 20.5-60.0 [facility] Comment on above: Performed By: #### C BC ####[facility] Nzwceramtu6704 [place] [address]Dr. Tadeo Smyth MANUAL DIFF REQ NO Normal [facility] Comment on above: Performed By: #### C BC ####[facility] Haoigrtmwi5628 [place] [address]Dr. Tadeo Haja MCH (RBC) [Entitic mass] 29.1 pg Normal 26.7-34.0 [facility] Comment on above: Performed By: #### C BC ####[facility] Lmuzneuabq4575[address] [place], [place] [address]Dr. Tadeo Haja MCHC (RBC) [Mass/Vol] 32.5 g/dL Normal 29.9-35.2 [facility] Comment on above: Performed By: #### C BC ####[facility] Tgsalrwtck885[address] [place], [place] [address]Dr. Tadeo Smyth MCV (RBC) [Entitic vol] 89.7 fL Normal 81.0-99.0 [facility] Comment on above: Performed By: #### C BC ####[facility] Iqkifncmno632[address] [place], [place] [address]Dr. Tadeo Smyth MONO # 0.3 103/ul Normal 0.3-0.8 [facility] Comment on above: Performed By: #### C BC ####[facility] Hcjegqcfbf919[address] [place], [place] [address]Dr. Tadeo Smyth Monocytes/100 WBC (Bld) 5.7 % Normal 1.7-12.0 [facility] Comment on above: Performed By: #### C BC ####[facility] Wkmirrhksk3272 [place] [address]Dr. Tadeo Smyth NEUT # 3.5 103/ul Normal 1.4-6.5 [facility] Comment on above: Performed By: #### C BC ####[facility] Uqvgjjwgkv7635 [place] [address]Dr. Tadeo Smyth Neutrophils/100 WBC (Bld) 61.3 % Normal 43.0-75.0 [facility] Comment on above: Performed By: #### C BC ####[facility] Wmjuhjqdfo6245 [place] [address]Dr. Tadeo Smyth Platelet mean volume (Bld) [Entitic vol] 9.1 fL Critically low 9.5-13.5 [facility] Comment on above: Performed By: #### C BC ####[facility] Xljezyrdir4776 [place] [address]Dr. Tadeo Smyth PLT 355 103/ul Normal 150-450 [facility] Comment on above: Performed By: #### C BC ####[facility] Oezdrlsmhx200[address] [place], [place] [address]Dr. Tadeo Smyth RBC 3.88 106/ul Critically low 4.20-5.40 [facility] Comment on above: Performed By: #### C BC ####[facility] Ybmuqfrnco856246 [address] [place], [place] [address]Dr. Tadeo Smyth WBC 5.6 103/ul Normal 4.0-11.0 [facility] Comment on above: Performed By: #### C BC ####[facility] Zmnximyyao510646 [address] [place], [place] [address]Dr. Tadeo Smyth CT ABD/PELV W CONon 03-27-20 CT ABD/PELV W CON Normal [facility] CT ABD/PELVIS WO CONon 03-27 CT ABD/PELVIS WO CON Normal [facility] Covid-19 PCR (CVDTBH)on 03-06 SARS-CoV-2 (COVID-19) RNA CHEN+probe Ql (Unsp spec) Not detected Normal NOT DETECTED [facility] Comment on above: Result Comment: When diagnostic [...] for this test is supported by the Director Of Retail Merchandising of Health and Human Service's declaration that [...] longer be used). Performed By: #### [facility] ####[facility] Lheofgglmi2549[address] [place], [place] [address]Dr. Tadeo Smyth ER URINE PROFILEon Bilirubin Ql (U) Negative Normal NEGATIVE [facility] Comment on above: Performed By: #### E NOLAN, PREGU ####[facility] Zwureaadvl4115[address] [place], [place] [address]Dr. Tadeo Smyth Clarity (U) CLEAR Normal CLEAR [facility] Comment on above: Performed By: #### E SARAH BETHR, PREGU ####[facility] Arydacnspm754[address] [place], [place] [address]Dr. Tadeo Smyth Color (U) LT. YELLOW Normal YELLOW [facility] Comment on above: Performed By: #### E RUR, PREGU ####[facility] Ziwndoxwig6380[address] [place], [place] [address]Dr. Tadeo Smyth ERUAHD A micrscopic examina tion will be performed if indicated. Normal [facility] Comment on above: Performed By: #### E RUR, PREGU ####[facility] Yjxmfupvdl4470[address] [place], [place] [address]Dr. Tadeo Smyth Glucose Ql (U) Negative Normal NEGATIVE [facility] Comment on above: Performed By: #### E RUR, PREGU ####[facility] Vvgtbpxjay810046 [address] [place], [place] [address]Dr. Tadeo Smyth Hemoglobin Ql (U) SMALL Abnormal NEGATIVE [facility] Comment on above: Performed By: #### E RUR, PREGU ####[facility] Vqpqvkeoaa9540[address] [place], [place] [address]Dr. Tadeo Smyth Ketones Ql (U) TRACE Abnormal NEGATIVE [facility] Comment on above: Performed By: #### E RUR, PREGU ####[facility] Yveozapwpy178646 [address] [place], [place] [address]Dr. Margotnicole Smyth LEUKOCYTES Negative Normal NEGATIVE [facility] Comment on above: Performed By: #### E RUR, PREGU ####[facility] Nxtjywsbvq0813[address] [place], [place] [address]Dr. Tadeo Smyth Nitrite Ql (U) Negative Normal NEGATIVE [facility] Comment on above: Performed By: #### E RUR, PREGU ####[facility] Jhmwusjgui7727[address] [place], [place] [address]Dr. Tadeo Smyth pH (U) 6.0 [pH] Normal 5-9 [facility] Comment on above: Performed By: #### E RUR, PREGU ####[facility] Cjyunngsai377[address] [place], [place] [address]Dr. Margotnicole Smyth SPEC GRAVITY >=1.030 Abnormal 1.005-<=1.0 25 [facility] Comment on above: Performed By: #### E RUR, PREGU ####[facility] Lsouoqevum4[address] [place], [place] [address]Dr. Tadeo Smyth UA PROTEIN Negative Normal NEGATIVE/ TRACE [facility] Comment on above: Performed By: #### E RUR, PREGU ####[facility] Ufhhhhxeqr6601[address] [place], [place] [address]Dr. Tadeo Smyth UR MICRO IND NOT INDICATED Normal [facility] Comment on above: Performed By: #### E RUR, PREGU ####[facility] Noxonmocbm0812 [place] [address]Dr. Tadeo Smyth Urobilinogen Qn (U) 0.2 {Benito'U}/dL Normal 0.2 - 1. 0 [facility] Comment on above: Performed By: #### E RUR, PREGU ####[facility] Nbxvdyseim8743 [place] [address]Dr. Tadeo Smyth LIPASEon 03-27-2022 Lipase [Catalytic activity/Vol] 126.0 U/L Normal 73.0-393.0 [facility] Comment on above: Performed By: #### L IPA, CMP ####[facility] Gailwyvdzv69224[address] [place], [place] [address]Dr. Tadeo Smyth URon 03-27-2022 , QUAL Negative Normal NEGATIVE [facility] Comment on above: Performed By: #### E RUR, PREGU ####[facility] Qsvtjurdlg8810[address] [place], [place] [address]Dr. Tadeo Smyth PROF 14(COMP METB)on 022 Albumin [Mass/Vol] 3.6 g/dL Normal 3.4-5.0 [facility] Comment on above: Performed By: #### L IPA, CMP ####[facility] Uwdmmavnxo402[address] [place], [place] [address]Dr. Tadeo Smyth Albumin/Globulin [Mass ratio] 1.1 {ratio} Normal [facility] Comment on above: Performed By: #### L IPA, CMP ####[facility] Whaiyxujdj0770[address] [place], [place] [address]Dr. Tadeo Smyth ALP [Catalytic activity/Vol] 139 U/L Critically high 46-116 [facility] Comment on above: Performed By: #### L IPA, CMP ####[facility] Fnrurrcdlt4064[address] [place], [place] [address]Dr. Tadeo Smyth ALT [Catalytic activity/Vol] 18 U/L Normal 14-59 [facility] Comment on above: Performed By: #### L IPA, CMP ####[facility] Kzthyzqrrg123[address] [place], [place] [address]Dr. Tadeo Smyth Anion gap [Moles/Vol] 10.7 mmol/L Normal Th [facility] Comment on above: Performed By: #### L IPA, CMP ####[facility] Ersudsacbx2075 [place] [address]Dr. Tadeo Smyth AST [Catalytic activity/Vol] 11 U/L Critically low 15-37 [facility] Comment on above: Performed By: #### L IPA, CMP ####[facility] Jnebhlimxi3075 [place] [address]Dr. Tadeo Smyth Bilirubin [Mass/Vol] 0.2 mg/dL Normal 0.2-1.0 [facility] Comment on above: Performed By: #### L IPA, CMP ####[facility] Bqhwfyhdzx554[address] [place], [place] [address]Dr. Tadeo Smyth Calcium [Mass/Vol] 9.0 mg/dL Normal 8.5-10.1 [facility] Comment on above: Performed By: #### L IPA, CMP ####[facility] Onusjxehgs9699[address] [place], [place] [address]Dr. Tadeo Smyth Chloride [Moles/Vol] 106 mmol/L Normal 98-107 [facility] Comment on above: Performed By: #### L IPA, CMP ####[facility] Gpdfkiejuj4625[address] [place], [place] [address]Dr. Tadeo Smyth CO2 [Moles/Vol] 26.9 mmol/L Normal 21.0-32.0 [facility] Comment on above: Performed By: #### L IPA, CMP ####[facility] Vcpemkliki803[address] [place], [place] [address]Dr. Tadeo Smyth Creatinine [Mass/Vol] 0.84 mg/dL Normal 0.55-1.02 [facility] Comment on above: Performed By: #### L IPA, CMP ####[facility] Yqivhcwazp357[address] [place], [place] [address]Dr. Tadeo Smyth EGFR-AF TOGOLESE >60 Normal >=60 [facility] Comment on above: Performed By: #### L IPA, CMP ####[facility] Aqmkzqyqva7975 [place] [address]Dr. Tadeo Smyth EGFR-NON AF TOGOLESE >60 Normal >=60 [facility] Comment on above: Performed By: #### L IPA, CMP ####[facility] Gxsacxdzgu54[address] [place], [place] [address]Dr. Tadeo Smyth Globulin (S) [Mass/Vol] 3.4 g/dL Normal [facility] Comment on above: Performed By: #### L IPA, CMP ####[facility] Whaaelpdbp180[address] [place], [place] [address]Dr. Tadeo Smyth Glucose [Mass/Vol] 96 mg/dL Normal 74-106 [facility] Comment on above: Performed By: #### L IPA, CMP ####[facility] Tnvbmyueai86[address] [place], [place] [address]Dr. Tadeo Smyth Potassium [Moles/Vol] 3.6 mmol/L Normal 3.5-5.1 [facility] Comment on above: Performed By: #### L IPA, CMP ####[facility] Vqiuadfycx37364[address] [place], [place] [address]Dr. Tadeo Smyth Protein [Mass/Vol] 7.0 g/dL Normal 6.4-8.2 [facility] Comment on above: Performed By: #### L IPA, CMP ####[facility] Kgetvofurn[address] [place], [place] [address]Dr. Tadeo Smyth Sodium [Moles/Vol] 140 mmol/L Normal 136-145 [facility] Comment on above: Performed By: #### L IPA, CMP ####[facility] Rgnuyrgpia12[address] [place], [place] [address]Dr. Tadeo Symth Urea nitrogen [Mass/Vol] 23.0 mg/dL Critically high 7.0-18.0 [facility] Comment on above: Performed By: #### L IPA, CMP ####[facility] Xcrxknwssd026[address] [place], [place] [address]Dr. Tadeo Smyth Urea nitrogen/Creatinine [Mass ratio] 27.4 mg/mg Normal [facility] Comment on above: Performed By: #### L IPA, CMP ####[facility] Fvysgvacfk[address] [place] [address]Dr. Tadeo Smyth GROUP A STREP CULTUREon S. pyogenes Ag Ql (Unsp spec) Normal [facility] Comment on above: Performed By: #### G RASTCX, SSCRN ####[facility] Pkyjdzwpbc[address] [place], [place] [address]Dr. Tadeo Smyth AMYLASEon 02-02-2022 Amylase [Catalytic activity/Vol] 37 U/L Normal 25-115 [facility] Comment on above: Performed By: #### C MP, VIJI, LIPA ####[facility] Ocijwxuknr[address] [place], [place] [address]Dr. Tadeo Smyth CBC AUTO DIFFon 02-02-2022 BASO # 0.0 103/ul Normal 0.0-0.1 [facility] Comment on above: Performed By: #### C BC ####[facility] Kzllucmyrp[address] [place], [place] [address]Dr. Margotnicole Smyth Basophils/100 WBC (Bld) 0.2 % Normal 0.2-2.0 [facility] Comment on above: Performed By: #### C BC ####[facility] Vsbfryfmko8[address] [place], [place] [address]Dr. Tadeo Smyth EO # 0.0 103/ul Normal 0.0-0.7 [facility] Comment on above: Performed By: #### C BC ####[facility] Vamroofcvk[address] [place], [place] [address]Dr. Tadeo Haja Eosinophils/100 WBC (Bld) 0.2 % Critically low 0.9-7.0 [facility] Comment on above: Performed By: #### C BC ####[facility] Mxdotnbhdz224[address] [place], [place] [address]Dr. Tadeo Smyth Erythrocyte distribution width (RBC) [Ratio] 13.4 % Normal 11.0-15.0 [facility] Comment on above: Performed By: #### C BC ####[facility] Nnymvzhxdd[address] [place], [place] [address]Dr. Tadeo Haja Hematocrit (Bld) [Volume fraction] 36.8 % Normal 36.0-48.0 [facility] Comment on above: Performed By: #### C BC ####[facility] Qgxanckbuy34[address] [place] [address]DrNeo Tadeo Haja Hemoglobin (Bld) [Mass/Vol] 11.6 g/dL Critically low 12.0-16.0 [facility] Comment on above: Performed By: #### C BC ####[facility] Yrqnhoofnw4[address] [place] [address]DrNeo Frostnicole Haja IG # 0.08 10e3/ul Critically high 0.00-0.03 [facility] Comment on above: Performed By: #### C BC ####[facility] Rerqjdwvhg[address] [place], [place] [address]DrNeo Smyth IG % 0.6 % Critically high 0.0-0.5 [facility] Comment on above: Performed By: #### C BC ####[facility] Iqrjvziimq[address] [place], [place] [address]DrNeo Smyth LYMPH # 0.9 103/ul Critically low 1.2-3.8 [facility] Comment on above: Performed By: #### C BC ####[facility] Avvfttvtad46[address] [place], [place] [address]DrNeo Smyth Lymphocytes/100 WBC (Bld) 6.9 % Critically low 20.5-60.0 [facility] Comment on above: Performed By: #### C BC ####[facility] Jidopfwhap[address] [place], [place] [address]DrNeo Smyth MANUAL DIFF REQ NO Normal [facility] Comment on above: Performed By: #### C BC ####[facility] Tgiqwawwsr42[address] [place] [address]DrNeo Smyth MCH (RBC) [Entitic mass] 28.9 pg Normal 26.7-34.0 [facility] Comment on above: Performed By: #### C BC ####[facility] Tzjwpcleui[address] [place] [address]DrNeo Smyth MCHC (RBC) [Mass/Vol] 31.5 g/dL Normal 29.9-35.2 [facility] Comment on above: Performed By: #### C BC ####[facility] Nkdbbgdcyb2222 [place] [address]DrNeo Smyth MCV (RBC) [Entitic vol] 91.8 fL Normal 81.0-99.0 [facility] Comment on above: Performed By: #### C BC ####[facility] Icxrypenjx8806 [place] [address]DrNeo Smyth MONO # 0.9 103/ul Critically high 0.3-0.8 [facility] Comment on above: Performed By: #### C BC ####[facility] Diybzuxvgc4147 [place] [address]DrNeo Smyth Monocytes/100 WBC (Bld) 6.9 % Normal 1.7-12.0 [facility] Comment on above: Performed By: #### C BC ####[facility] Javnfyundx9[address] [place], [place] [address]DrNeo Smyth NEUT # 11.6 103/ul Critically high 1.4-6.5 [facility] Comment on above: Performed By: #### C BC ####[facility] Ezmzhecnhj[address] [place], [place] [address]DrNeo Smyth Neutrophils/100 WBC (Bld) 85.2 % Critically high 43.0-75.0 [facility] Comment on above: Performed By: #### C BC ####[facility] Iuqfnaeyhl[address] [place], [place] [address]DrNeo Smyth Platelet mean volume (Bld) [Entitic vol] 8.9 fL Critically low 9.5-13.5 [facility] Comment on above: Performed By: #### C BC ####[facility] Fgoipyehsb[address] [place], [place] [address]DrNeo Smyth PLT 331 103/ul Normal 150-450 [facility] Comment on above: Performed By: #### C BC ####[facility] Wxlraavzlv7[address] [place] [id number] Smyth RBC 4.01 106/ul Critically low 4.20-5.40 [facility] Comment on above: Performed By: #### C BC ####[facility] Wpuhvkvity4308 [place] [id number]. Tadeo Smyth WBC 13.7 103/ul Critically high 4.0-11.0 [facility] Comment on above: Performed By: #### C BC ####[facility] Cfhfzgybfh0205 [place] [id number]. Tadeo Smyth Covid-19 PCR (CVDTB)on 01-05 SARS-CoV-2 (COVID-19) RNA CHEN+probe Ql (Unsp spec) Not detected Normal NOT DETECTED [facility] Comment on above: Result Comment: When diagnostic [...] for this test is supported by the Director Of Retail Merchandising of Health and Human Service's declaration that [...] be used). Performed By: #### C VDTBH ####[facility] Zjxqcoijmk36[address] [place] [id number]. Tadeo Smyth LIPASEon 02-02-2022 Lipase [Catalytic activity/Vol] 33.0 U/L Critically low 73.0-393.0 [facility] Comment on above: Performed By: #### C VIJI GARCIA, LIPA ####[facility] Ltwiybkgrn53[address] [place] [id number]. Tadeo Smyth MONOon 02-02-2022 Monocytes (Bld) [#/Vol] Negative Normal NEGATIVE [facility] Comment on above: Performed By: #### M JESSICA ####[facility] Jlwkorbagm8254 [place] [address]Dr. Tadeo Smyth PROF 14(COMP METB)on 022 Albumin [Mass/Vol] 3.1 g/dL Critically low 3.4-5.0 [facility] Comment on above: Performed By: #### C MP VIJI, LIPA ####[facility] Vicgqfnjsz0920 [place] [address]Dr. Tadeo Smyth Albumin/Globulin [Mass ratio] 0.9 {ratio} Normal [facility] Comment on above: Performed By: #### C JOSE VIJI, LIPA ####[facility] Zwsildvpmx9[address] [place], [place] [address]Dr. Tadeo Smyth ALP [Catalytic activity/Vol] 131 U/L Critically high 46-116 [facility] Comment on above: Performed By: #### C JOSE VIJI, LIPA ####[facility] Wjeyqwcnlr[address] [place], [place] [address]Dr. Tadeo Smyth ALT [Catalytic activity/Vol] 25 U/L Normal 14-59 [facility] Comment on above: Performed By: #### C JOSE VIJI, LIPA ####[facility] Kcecjraqar220[address] [place], [place] [address]Dr. Tadeo Smyth Anion gap [Moles/Vol] 10.0 mmol/L Normal [facility] Comment on above: Performed By: #### C MP VIJI, LIPA ####[facility] Fobmdzzqni78[address] [place], [place] [address]Dr. Tadeo Smyth AST [Catalytic activity/Vol] 19 U/L Normal 15-37 [facility] Comment on above: Performed By: #### C JOSE VIJI, LIPA ####[facility] Iksbwjhynm866[address] [place], [place] [address]Dr. Tadeo Smyth Bilirubin [Mass/Vol] 0.6 mg/dL Normal 0.2-1.0 [facility] Comment on above: Performed By: #### C JOSE VIJI, LIPA ####[facility] Lnjmeucivu65[address] [place] [address]Dr. Tadeo Smyth Calcium [Mass/Vol] 8.2 mg/dL Critically low 8.5-10.1 [facility] Comment on above: Performed By: #### C MP, VIJI, LIPA ####[facility] Kchcscxhgs[address] [place], [place] [address]Dr. Tadeo Smyth Chloride [Moles/Vol] 106 mmol/L Normal 98-107 [facility] Comment on above: Performed By: #### C MP, VIJI, LIPA ####[facility] Kfnosdhmrw[address] [place], [place] [address]Dr. Tadeo Smyth CO2 [Moles/Vol] 25.5 mmol/L Normal 21.0-32.0 [facility] Comment on above: Performed By: #### C MP, VIJI, LIPA ####[facility] Hxnbjtlblo8[address] [place], [place] [address]Dr. Tadeo Smyth Creatinine [Mass/Vol] 0.78 mg/dL Normal 0.55-1.02 [facility] Comment on above: Performed By: #### C MP, VIJI, LIPA ####[facility] Otdtrxffye[address] [place], [place] [address]Dr. Tadeo Smyth EGFR-AF TOGOLESE >60 Normal >=60 [facility] Comment on above: Performed By: #### C MP, VIJI, LIPA ####[facility] Kimlycivlg42[address] [place], [place] [address]Dr. Tadeo Smyth EGFR-NON AF TOGOLESE >60 Normal >=60 [facility] Comment on above: Performed By: #### C MP, VIJI, LIPA ####[facility] Lmdlcrzuus[address] [place], [place] [address]Dr. Tadeo Smyth Globulin (S) [Mass/Vol] 3.6 g/dL Normal [facility] Comment on above: Performed By: #### C MP, VIJI, LIPA ####[facility] Fkzgfjppik[address] [place], [place] [address]Dr. Tadeo Smyth Glucose [Mass/Vol] 110 mg/dL Critically high 74-106 [facility] Comment on above: Performed By: #### C MP, VIJI, LIPA ####[facility] Szsjcietvi37[address] [place] [address]Dr. Tadeo Smyth Potassium [Moles/Vol] 3.5 mmol/L Normal 3.5-5.1 [facility] Comment on above: Performed By: #### C MP, VIJI, LIPA ####[facility] Rchzwkkxdy1107 [place] [address]Dr. Tadeo Smyth Protein [Mass/Vol] 6.7 g/dL Normal 6.4-8.2 [facility] Comment on above: Performed By: #### C MP, VIJI, LIPA ####[facility] Tqnutsnzvz1497 [place] [address]Dr. Tadeo Smyth Sodium [Moles/Vol] 138 mmol/L Normal 136-145 [facility] Comment on above: Performed By: #### C MP, VIJI, LIPA ####[facility] Tpjpbhctke[address] [place], [place] [address]Dr. Tadeo Smyth Urea nitrogen [Mass/Vol] 11.0 mg/dL Normal 7.0-18.0 [facility] Comment on above: Performed By: #### C MP, VIJI, LIPA ####[facility] Ebhghneevu[address] [place], [place] [address]Dr. Tadeo Smyth Urea nitrogen/Creatinine [Mass ratio] 14.1 mg/mg Normal [facility] Comment on above: Performed By: #### C MP, VIJI, LIPA ####[facility] Whzaahrisq[address] [place], [place] [address]Dr. Tadeo Smyth STREPT SCREENon 02-02-2022 STREP SCREEN A Negative Normal NEGATIVE [facility] Comment on above: Performed By: #### G RASTCX, SSCRN ####[facility] Ebwfatvqxm[address] [place], [place] [address]Dr. Tadeo Smyth BASIC METABOLIC PANELon 08-05 Calcium [Mass/Vol] 8.4 mg/dL Low 8.6-10.3 [facility] Comment on above: Order Comment: No: D o not add to previous draw Performed By: #### 3 890, 81818 #### [facility] [address] [place] [address], [place] Chloride [Moles/Vol] 108 mmol/L High 98-107 [facility] Comment on above: Order Comment: No: D o not add to previous draw Performed By: #### 3 589, 96044 #### [facility] [address] [place] [address], [place] CO2 [Moles/Vol] 26 mmol/L Normal 21-31 [facility] Comment on above: Order Comment: No: D o not add to previous draw Performed By: #### 3 987, 05283 #### [facility] [address] [place] [address], [place] Creatinine [Mass/Vol] 0.79 mg/dL Normal 0.60-1.20 [facility] Comment on above: Order Comment: No: D o not add to previous draw Performed By: #### 3 590, 23622 #### [facility] [address] [place] [address], [place] GFR/1.73 sq M predicted among blacks MDRD (S/P/Bld) [Vol rate/Area] mL/min/{1.73_m2} Normal >60 [facility] Comment on above: Order Comment: No: D o not add to previous draw Performed By: #### 3 124, 11362 #### [facility] [address] [place] [address], [place] GFR/1.73 sq M predicted among non-blacks MDRD (S/P/Bld) [Vol rate/Area] mL/min/{1.73_m2} Normal >60 [facility] Comment on above: Order Comment: No: D o not add to previous draw Performed By: #### 3 861, 76186 #### [facility] [address] [place] [address], [place] Glucose [Mass/Vol] 98 mg/dL Normal 70-100 [facility] Comment on above: Order Comment: No: D o not add to previous draw Performed By: #### 3 346, 66856 #### [facility] [address] [place] [address], [place] Potassium [Moles/Vol] 3.5 mmol/L Normal 3.5-5.1 [facility] Comment on above: Order Comment: No: D o not add to previous draw Performed By: #### 3 543, 74436 #### [facility] [address] [place] [address], [place] Sodium [Moles/Vol] 139 mmol/L Normal 136-145 [facility] Comment on above: Order Comment: No: D o not add to previous draw Performed By: #### 3 032, 42037 #### [facility] [address] [place] [address], [place] Urea nitrogen [Mass/Vol] 11 mg/dL Normal 7-25 [facility] Comment on above: Order Comment: No: D o not add to previous draw Performed By: #### 3 290, 85547 #### [facility] [address] [place] [address], [place] BLOOD STOOL GUAIACon 019 BLD STOOL GUAIAC Negative Normal NEGATIVE [facility] Comment on above: Order Comment: No: D o not add to previous draw Performed By: #### 3 517, 76598 #### [facility] [address] [place] [address], [place] MAGNESIUM BLOODon 08-16-2019 Magnesium [Mass/Vol] 2.0 mg/dL Normal 1.9-2.7 [facility] Comment on above: Order Comment: No: D o not add to previous draw Performed By: #### 3 033, 07276 #### [facility] [address] [place] [address], [place] *URINE CULTUREon 08-15-2019 Bacteria identified Cx Nom (U) Clinical Report: (D) Specimen/Source: URINE/MIDSTREAM Collected: 08/15/2019 20:40 Status: Final Last Updated: 08/17/2019 08:05 ISO (Final) Escherichia coli >100,000 Cfu/Ml ISOLATE: Escherichia coli RHONDA (mcg/ml) AMP./SULBAC (AMS) 16/8 Intermediate AMPICILLIN (AM) >16 Resistant AZTREONAM (AZM) <=1 Susceptible CEFAZOLIN (CZ) 2 Susceptible CEFTRIAXONE (ICER MACHINE OPERATOR) <=0.5 Susceptible CIPROFLOXACIN (CIP) >2 Resistant ESBL (-/+) (ESBL) Negative GENTAMICIN (GM) <=1 Susceptible NITROFURANTOIN (FT) <=16 Susceptible PIP/TAZO (TZP) 4/4 Susceptible TOBRAMYCIN (TOB) 1 Susceptible TRIMETH/SULFA (SXT) >2/38 Resistant Normal [facility] Comment on above: Performed By: #### 3 6901, 53455 #### [facility] [address] BASIC METABOLIC PANELon 12 Calcium [Mass/Vol] 8.8 mg/dL Normal 8.6-10.3 [facility] Comment on above: Order Comment: No: D o not add to previous draw Performed By: #### 0 0071, 94284, 86180 #### [facility] [address] Chloride [Moles/Vol] 107 mmol/L Normal 98-107 [facility] Comment on above: Order Comment: No: D o not add to previous draw Performed By: #### 0 0071, 72449, 48858 #### [facility] [address] [place] [address], [facility] CO2 [Moles/Vol] 27 mmol/L Normal 21-31 [facility] Comment on above: Order Comment: No: D o not add to previous draw Performed By: #### 0 0071, 04889, 34532 #### [facility] [address] [place] [address], [place] Creatinine [Mass/Vol] 0.99 mg/dL Normal 0.60-1.20 [facility] Comment on above: Order Comment: No: D o not add to previous draw Performed By: #### 0 0071, 96483, 07264 #### [facility] [address] [place] [address], [place] GFR/1.73 sq M predicted among blacks MDRD (S/P/Bld) [Vol rate/Area] mL/min/{1.73_m2} Normal >60 [facility] Comment on above: Order Comment: No: D o not add to previous draw Performed By: #### 0 0071, 65854, 29935 #### [facility] [address] [place] [address], [place] GFR/1.73 sq M predicted among non-blacks MDRD (S/P/Bld) [Vol rate/Area] 59 ml/min/1.73sq m Abnormal >60 [facility] Comment on above: Order Comment: No: D o not add to previous draw Performed By: #### 0 0071, 07565, 08860 #### [facility] [address] [place] [address], [place] Glucose [Mass/Vol] 100 mg/dL Normal 70-100 [facility] Comment on above: Order Comment: No: D o not add to previous draw Performed By: #### 0 0071, 93928, 96665 #### [facility] [address] [place] [address], [place] Potassium [Moles/Vol] 3.6 mmol/L Normal 3.5-5.1 [facility] Comment on above: Order Comment: No: D o not add to previous draw Performed By: #### 0 0071, 04106, 93233 #### [facility] [address] [place] [address], [place] Sodium [Moles/Vol] 140 mmol/L Normal 136-145 [facility] Comment on above: Order Comment: No: D o not add to previous draw Performed By: #### 0 0071, 91279, 39677 #### [facility] [address] [place] [address], [facility] Urea nitrogen [Mass/Vol] 9 mg/dL Normal 7-25 [facility] Comment on above: Order Comment: No: D o not add to previous draw Performed By: #### 0 0071, 63183, 88593 #### [facility] [address] [place] [address], [facility] LACTATE BLOODon 08-15-2019 Lactate [Moles/Vol] 0.8 mmol/L Normal 0.5-2.2 [facility] Comment on above: Order Comment: Yes: Add to Previous draw if able Performed By: #### 1 0054 #### [facility] [address] [facility] [address] LMWH HEPARIN ASSAYon 019 LOW MOLECULAR WEIGHT HEPARIN 0.32 IU/mL Low 0.60-1.20 [facility] Comment on above: Order Comment: (draw 4 hours after enoxaparin dose) needed if patient > 150kg or BMI >50 not usually necessary but consider in renal dysfunction, hepaticdysfunction, , children, very underweight, or overweightNo: Do not add to previous drawPER RN TY, PATIENT RECEIVES DOSE AT 9 AM. TRY [...] UFH and LMWH. Performed By: #### 3 5451, 50284 #### [facility] [address] [place] [address], [facility] MAGNESIUM BLOODon 08-15-2019 Magnesium [Mass/Vol] 1.7 mg/dL Low 1.9-2.7 [facility] Comment on above: Order Comment: No: D o not add to previous draw Performed By: #### 0 0071, 23167, 08286 #### [facility] [address] [place] [address], [facility] PHOSPHORUS BLOODon 9 Phosphate [Mass/Vol] 4.1 mg/dL Normal 2.5-5.0 [facility] Comment on above: Order Comment: No: D o not add to previous draw Performed By: #### 0 0071, 85140, 30446 #### [facility] [address] [place] [address], [facility] UGI WITH SMALL BOWELon 08-15 UGI WITH SMALL BOWEL [facility] Department of Radiology [address] [place], [place] [id number] Patient Name: CONSTANTINO CARDOSO : 1970 Sex: F Age: Race: White Pt. Location: [id number] Patient Status: O Ordered Date: 08/15/2019 10:45:00 [...] ischemia. Electronically signed by:Orestes Condon. Transcribed by: [email or web address], User Resident: Electronically Signed by: ORESTES CONDON @ 08/15/2019 04:13 PM Normal [facility] Comment on above: Order Comment: R/O O bstruction URINALYSIS REFLEXon 08-15-20 19 Appearance (U) SL CLOUDY Abnormal CLEAR [facility] Comment on above: Order Comment: No: D o not add to previous drawCriteria for reflexing a culture was met. Urine Culture and sensitivitywill be performed. Performed By: #### 3 5431, 18122 #### [facility] [address] [facility] [place] [address], [facility] Bilirubin [Mass/Vol] Negative Normal NEGATIVE [facility] Comment on above: Order Comment: No: D o not add to previous drawCriteria for reflexing a culture was met. Urine Culture and sensitivitywill be performed. Performed By: #### 3 2001, 90434 #### [facility] [address] [place] [address], [facility] BLOOD SMALL Abnormal NEGATIVE [facility] Comment on above: Order Comment: No: D o not add to previous drawCriteria for reflexing a culture was met. Urine Culture and sensitivitywill be performed. Performed By: #### 3 6901, 78794 #### [facility] [address] [place] [address], [place] Color (U) YELLOW Normal YELLOW [facility] Comment on above: Order Comment: No: D o not add to previous drawCriteria for reflexing a culture was met. Urine Culture and sensitivitywill be performed. Performed By: #### 3 6901, 60009 #### [facility] [address] [place] [address], [facility] EPIS OCC Normal FEW,OCC,NON E SEEN [facility] Comment on above: Order Comment: No: D o not add to previous drawCriteria for reflexing a culture was met. Urine Culture and sensitivitywill be performed. Performed By: #### 3 339, 50449 #### [facility] [address] [place] [address], [place] Glucose [Mass/Vol] Negative Normal NEGATIVE [facility] Comment on above: Order Comment: No: D o not add to previous drawCriteria for reflexing a culture was met. Urine Culture and sensitivitywill be performed. Performed By: #### 3 3641, 01477 #### [facility] [address] [place] [address], [place] HYALINE CASTS 6-10 Abnormal NONE SEEN [facility] Comment on above: Order Comment: No: D o not add to previous drawCriteria for reflexing a culture was met. Urine Culture and sensitivitywill be performed. Performed By: #### 3 6901, 08094 #### [facility] [address] [place] [address], [place] KETONE Negative Normal NEGATIVE [facility] Comment on above: Order Comment: No: D o not add to previous drawCriteria for reflexing a culture was met. Urine Culture and sensitivitywill be performed. Performed By: #### 3 690, 01122 #### [facility] [address] [place] [address], [facility] LEUK JONN MODERATE Abnormal NEGATIVE [facility] Comment on above: Order Comment: No: D o not add to previous drawCriteria for reflexing a culture was met. Urine Culture and sensitivitywill be performed. Performed By: #### 3 690, 44163 #### [facility] [address] [place] [address], [place] MUCUS THREADS FEW Abnormal NONE SEEN [facility] Comment on above: Order Comment: No: D o not add to previous drawCriteria for reflexing a culture was met. Urine Culture and sensitivitywill be performed. Performed By: #### 3 690, 67848 #### [facility] [address] [place] [address], [facility] Nitrite Ql (U) Negative Normal NEGATIVE [facility] Comment on above: Order Comment: No: D o not add to previous drawCriteria for reflexing a culture was met. Urine Culture and sensitivitywill be performed. Performed By: #### 3 690, 75077 #### [facility] [address] [place] [address], [facility] pH (Bld) 5.0 Normal 5.0-8.0 [facility] Comment on above: Order Comment: No: D o not add to previous drawCriteria for reflexing a culture was met. Urine Culture and sensitivitywill be performed. Performed By: #### 3 690, 16045 #### [facility] [address] [place] [address], [facility] Protein (U) [Mass/Vol] Negative Normal NEGATIVE [facility] [facility] Comment on above: Order Comment: No: D o not add to previous drawCriteria for reflexing a culture was met. Urine Culture and sensitivitywill be performed. Performed By: #### 3 265, [id number] #### [facility] [address] [place] [address], [facility] RBC (U) [#/Vol] 6-10 Abnormal NONE SEEN [facility] Comment on above: Order Comment: No: D o not add to previous drawCriteria for reflexing a culture was met. Urine Culture and sensitivitywill be performed. Performed By: #### 3 6901, [id number] #### [facility] [address] [facility] [place] [address], [facility] SPEC GRAV 1.025 High 1.015-1.020 [facility] Comment on above: Order Comment: No: D o not add to previous drawCriteria for reflexing a culture was met. Urine Culture and sensitivitywill be performed. Performed By: #### 3 6901, 74071 #### [facility] [address] [facility] [place] [address], [facility] WBC UA 51-100 Abnormal NONE SEEN [facility] Comment on above: Order Comment: No: D o not add to previous drawCriteria for reflexing a culture was met. Urine Culture and sensitivitywill be performed. Performed By: #### 3 6901, [id number] #### [facility] [address] [facility]. [address] CBC COMPLETE BLOOD COUNTon 1 10-15-2018 Erythrocyte distribution width (RBC) [Ratio] 12.7 % Normal 11.5-15.0 [facility] Comment on above: Order Comment: No: D o not add to previous draw Performed By: #### 5 0608 #### [facility] [address] [facility] [address] Hematocrit (Bld) [Volume fraction] 31.2 % Low 36.0-45.0 [facility] Comment on above: Order Comment: No: D o not add to previous draw Performed By: #### 5 0608 #### [facility] [address] [place] [address], [facility] Hemoglobin (Bld) [Mass/Vol] 9.8 g/dL Low 12.0-15.0 [facility] Comment on above: Order Comment: No: D o not add to previous draw Performed By: #### 5 0608 #### [facility] [address] MCH (RBC) [Entitic mass] 29.1 pg Normal 27.0-33.0 [facility] Comment on above: Order Comment: No: D o not add to previous draw Performed By: #### 5 0608 #### [facility] [address] MCHC (RBC) [Mass/Vol] 31.4 g/dL Low 32.0-35.0 [facility] Comment on above: Order Comment: No: D o not add to previous draw Performed By: #### 5 0608 #### [facility] [address] [place] [address], [facility] MCV (RBC) [Entitic vol] 92.6 fL Normal 82.0-98.0 [facility] Comment on above: Order Comment: No: D o not add to previous draw Performed By: #### 5 0608 #### [facility] [address] Nucleated RBC/100 WBC (Bld) [Ratio] 0 % Normal 0-0 [facility] Comment on above: Order Comment: No: D o not add to previous draw Performed By: #### 5 0608 #### [facility] [address] [place] [address], [facility] PLAT CNT 340 10*3/uL Normal 150-400 [facility] Comment on above: Order Comment: No: D o not add to previous draw Performed By: #### 5 0608 #### [facility] [address] [place] [address], [facility] RBC (Bld) [#/Vol] 3.37 10*6/uL Low 3.80-5.00 [facility] Comment on above: Order Comment: No: D o not add to previous draw Performed By: #### 5 0608 #### [facility] [address] [facility] [place] [address], [facility] WBC (Bld) [#/Vol] 6.04 10*3/uL Normal 4.00-10.60 [facility] Comment on above: Order Comment: No: D o not add to previous draw Performed By: #### 5 0608 #### [facility] [address] [facility] [address] PROTHROMBIN TIMEon 12 9 INR Coag (PPP) [Relative time] 1.09 {INR} Normal 0.91-1.16 [facility] Comment on above: Order Comment: No: [...] 1995;[id number]. Performed By: #### 5 6101 #### [facility] [address] PT Coag (PPP) [Time] 14.1 s Normal 12.3-14.8 [facility] Comment on above: Order Comment: No: D o not add to previous draw Result Comment: ALL RESULTS MUST BE INTERPRETED WITH RESPECT TO BLOOD DRAWING ARTIFACT OR DILUTION ERROR OF ANTICOAGULANT AT THE TIME OF SAMPLING. Performed By: #### 5 6101 #### [address] LIVERon 08-14-2019 [facility] Department of Radiology [address] [place] [id number] Patient Name: CONSTANTINO CARDOSO : 1970 Sex: F Age: Race: White Pt. Location: [id number] Patient Status: O Ordered Date: 08/13/2019 8:30:00 [...] cholecystectomy. Electronically signed by:Orestes Condon. Transcribed by: [email or web address], User Resident: Electronically Signed by: ORESTES CONDON @ 08/14/2019 02:09 PM Normal [facility] Comment on above: Order Comment: R/O S tones BASIC METABOLIC PANELon 12-0 Calcium [Mass/Vol] 9.4 mg/dL Normal 8.6-10.3 [facility] Comment on above: Order Comment: No: D o not add to previous draw Performed By: #### 3 070, 81070 #### [facility] [address] [place] [address], [place] Chloride [Moles/Vol] 105 mmol/L Normal 98-107 [facility] Comment on above: Order Comment: No: D o not add to previous draw Performed By: #### 3 510, 24553 #### [facility] [address] [place] [address], [place] CO2 [Moles/Vol] 26 mmol/L Normal 21-31 [facility] Comment on above: Order Comment: No: D o not add to previous draw Performed By: #### 3 956, 87235 #### [facility] [address] [place] [address], [place] Creatinine [Mass/Vol] 1.03 mg/dL Normal 0.60-1.20 [facility] Comment on above: Order Comment: No: D o not add to previous draw Performed By: #### 3 106, 30757 #### [facility] [address] [place] [address], [place] GFR/1.73 sq M predicted among blacks MDRD (S/P/Bld) [Vol rate/Area] mL/min/{1.73_m2} Normal >60 [facility] Comment on above: Order Comment: No: D o not add to previous draw Performed By: #### 3 147, 35869 #### [facility] [address] [place] [id number], [facility] GFR/1.73 sq M predicted among non-blacks MDRD (S/P/Bld) [Vol rate/Area] 57 ml/min/1.73sq m Abnormal >60 [facility] Comment on above: Order Comment: No: D o not add to previous draw Performed By: #### 3 690, 03756 #### [facility] [address] [place] [address], [facility] Glucose [Mass/Vol] 96 mg/dL Normal 70-100 [facility] Comment on above: Order Comment: No: D o not add to previous draw Performed By: #### 3 690, 57519 #### [facility] [address] [place] [address], [facility] Potassium [Moles/Vol] 4.1 mmol/L Normal 3.5-5.1 [facility] Comment on above: Order Comment: No: D o not add to previous draw Performed By: #### 3 690, 67568 #### [facility] [address] [place] [address], [facility] Sodium [Moles/Vol] 138 mmol/L Normal 136-145 [facility] Comment on above: Order Comment: No: D o not add to previous draw Performed By: #### 3 690, 87621 #### [facility] [address] [place] [address], [facility] Urea nitrogen [Mass/Vol] 16 mg/dL Normal 7-25 [facility] Comment on above: Order Comment: No: D o not add to previous draw Performed By: #### 3 690, 34634 #### [facility] [address] [place] [address], [facility] CBC W/DIFFon 08-13-2019 ABS BASOPHILS 0.0 10*3/uL Normal 0.0-0.2 [facility] Comment on above: Order Comment: No: D o not add to previous draw Performed By: #### 5 0103 #### [facility] [address] [place] [address], [facility] ABS IMM GRANS 0.0 10*3/uL Normal 0.0-0.2 [facility] Comment on above: Order Comment: No: D o not add to previous draw Performed By: #### 5 0103 #### [facility] [address] [place] [address], [facility] ABS NEUTROPHILS 4.0 10*3/uL Normal 1.6-7.6 [facility] Comment on above: Order Comment: No: D o not add to previous draw Performed By: #### 5 0103 #### [facility] [address] [place] [address], [facility] Basophils/100 WBC (Bld) 0.5 % Normal 0.0-1.0 [facility] Comment on above: Order Comment: No: D o not add to previous draw Performed By: #### 5 0103 #### [facility] [address] [facility] [place] [address], [facility] Eosinophils (Bld) [#/Vol] 0.2 10*3/uL Normal 0.0-0.5 [facility] Comment on above: Order Comment: No: D o not add to previous draw Performed By: #### 5 0103 #### [facility] [address] [facility] [address], [facility] Eosinophils/100 WBC (Bld) 3.3 % Normal 0.0-6.0 [facility] Comment on above: Order Comment: No: D o not add to previous draw Performed By: #### 5 0103 #### [facility] [address] [place] [address], [facility] Erythrocyte distribution width (RBC) [Ratio] 12.7 % Normal 11.5-15.0 [facility] Comment on above: Order Comment: No: D o not add to previous draw Performed By: #### 5 0103 #### [facility] [address] [place] [address], [facility] Hematocrit (Bld) [Volume fraction] 33.4 % Low 36.0-45.0 [facility] Comment on above: Order Comment: No: D o not add to previous draw Performed By: #### 5 3 #### [facility] [address] [place] [id number], [facility] Hemoglobin (Bld) [Mass/Vol] 10.5 g/dL Low 12.0-15.0 [facility] Comment on above: Order Comment: No: D o not add to previous draw Performed By: #### 5 3 #### [facility] [address] [place] [address], [facility] IMMATURE GRANS 0.2 % Normal 0.0-1.0 [facility] Comment on above: Order Comment: No: D o not add to previous draw Performed By: #### 5 3 #### [facility] [address] [facility] [place] [address], [facility] Lymphocytes (Bld) [#/Vol] 1.8 10*3/uL Normal 1.2-4.0 [facility] Comment on above: Order Comment: No: D o not add to previous draw Performed By: #### 5 3 #### [facility] [address] [facility] [address], [facility] Lymphocytes/100 WBC (Bld) 28.2 % Normal 20.0-45.0 [facility] Comment on above: Order Comment: No: D o not add to previous draw Performed By: #### 5 3 #### [facility] [address] [facility] [place] [address], [facility] MCH (RBC) [Entitic mass] 28.9 pg Normal 27.0-33.0 [facility] Comment on above: Order Comment: No: D o not add to previous draw Performed By: #### 5 3 #### [facility] [address] [place] [id number], [facility] MCHC (RBC) [Mass/Vol] 31.4 g/dL Low 32.0-35.0 [facility] Comment on above: Order Comment: No: D o not add to previous draw Performed By: #### 5 0103 #### [facility] [address] [place] [id number], [facility] MCV (RBC) [Entitic vol] 92.0 fL Normal 82.0-98.0 [facility] Comment on above: Order Comment: No: D o not add to previous draw Performed By: #### 5 0103 #### [facility] [address] [place] [address], [facility] Monocytes (Bld) [#/Vol] 0.4 10*3/uL Normal 0.1-1.0 [facility] Comment on above: Order Comment: No: D o not add to previous draw Performed By: #### 5 0103 #### [facility] [address] [place] [id number], [facility] MONOS 6.2 % Normal 5.0-12.0 [facility] Comment on above: Order Comment: No: D o not add to previous draw Performed By: #### 5 3 #### [facility] [address] [facility] [place] [address], [facility] Neutrophils/100 WBC (Bld) 61.6 % Normal 40.0-72.0 [facility] Comment on above: Order Comment: No: D o not add to previous draw Performed By: #### 5 0103 #### [facility] [address] [place] [address], [facility] Nucleated RBC/100 WBC (Bld) [Ratio] 0 % Normal 0-0 [facility] Comment on above: Order Comment: No: D o not add to previous draw Performed By: #### 5 0103 #### [facility] [address] [facility] [place] [address], [facility] PLAT CNT 382 10*3/uL Normal 150-400 [facility] Comment on above: Order Comment: No: D o not add to previous draw Performed By: #### 5 0103 #### [facility] [address] [place] [address], [facility] RBC (Bld) [#/Vol] 3.63 10*6/uL Low 3.80-5.00 [facility] Comment on above: Order Comment: No: D o not add to previous draw Performed By: #### 5 0103 #### [facility] [address] [facility] [place] [address], [facility] WBC (Bld) [#/Vol] 6.45 10*3/uL Normal 4.00-10.60 [facility] Comment on above: Order Comment: No: D o not add to previous draw Performed By: #### 5 0103 #### [facility] [address] [facility] [place] [address], [facility] LIPASE BLOODon 08-13-2019 Lipase [Catalytic activity/Vol] 13 Units/L Normal 11-82 [facility] Comment on above: Performed By: #### 3 6901, 68933 #### [facility] [address] [facility] [place] [address], [facility] Vital Signs Date Time Vital Sign Value Performing Clinician Facility 07-22-2023 13:19-0500 Body height 170.[address] Work Phone: [facility] 07-22-2023 13:19-0500 Body weight 83.[address] Work Phone: [facility] 07-14-2023 11:40-0500 Diastolic blood pressure 95 mm[Hg] Marques Bradley MD Work Phone: [facility] 07-14-2023 11:40-0500 Heart rate 56 /min Marques Bradley MD Work Phone: [facility] 07-14-2023 11:40-0500 Respiratory rate 16 /min Marques Bradley MD Work Phone: [facility] 07-14-2023 11:40-0500 SaO2% (BldA) [Mass fraction] 97 % Marques Bradley MD Work Phone: [facility] 07-14-2023 11:40-0500 Systolic blood pressure 158 mm[Hg] Marques Bradley MD Work Phone: [facility] 07-14-2023 11:10-0500 Body temperature 97.2 [degF] Marques Bradley MD Work Phone: [facility] 07-14-2023 08:34-0500 Body height 170.2 cm Marques Bradley MD Work Phone: [facility] 07-14-2023 08:34-0500 Body weight 88 kg Marques Bradley MD Work Phone: [facility] 04-21-2023 09:30-0400 Body height 170.18 cm Renny Gan Other [employer] Other 04-21-2023 09:30-0400 Body mass index (BMI) [Ratio] 31.21 kg/m2 Renny Gan Other [employer] Other 04-21-2023 09:30-0400 Body weight 90.4 kg Renny Gan Other [employer] Other 04-21-2023 09:30-0400 Diastolic blood pressure 78 mm[Hg] Renny Gan Other [employer] Other 04-21-2023 09:30-0400 Systolic blood pressure 130 mm[Hg] Renny Gan Other [employer] Other 03-23-2023 07:33-0400 Diastolic blood pressure 80 mm[Hg] [employer]MAN[employer] OPERATOR[employer]C Judi Mikael Work Phone: [facility] 03-23-2023 07:33-0400 Heart rate 81 /min [employer] OPERATOR[employer] Judi Mikael Work Phone: [facility] 03-23-2023 07:33-0400 Respiratory rate 14 /min [employer] OPERATOR[employer] Judijose manuel Ugaldemer Work Phone: [facility] 03-23-2023 07:33-0400 SaO2% (BldA) [Mass fraction] 95 % [employer] OPERATOR[employer] Judi Ugaldemer Work Phone: [facility] 03-23-2023 07:33-0400 Systolic blood pressure 171 mm[Hg] [employer]MAN[employer] OPERATOR-C Judijose manuel Ugaldemer Work Phone: [facility] 03-23-2023 06:20-0400 Body height 170.18 cm [employer]MAN[employer] OPERATOR-C Judi Youssef Work Phone: [facility] 03-23-2023 06:20-0400 Body temperature 97.4 [degF] [employer]MAN[employer]CRANE OPERATOR-C Judi Ugaldemer Work Phone: [facility] 03-23-2023 06:20-0400 Body weight 90 kg [employer]CHMAN[employer]CRANE OPERATOR-C Judi Ugaldemer Work Phone: [facility] 02-19-2023 00:53-0400 Body temperature 96.98 [degF] Kaylinn Dokken [facility] 02-19-2023 00:53-0400 Diastolic blood pressure 99 mm[Hg] Kaylinn Dokken [facility] 02-19-2023 00:53-0400 Heart rate 75 /min Kaylinn Dokken [facility] 02-19-2023 00:53-0400 Respiratory rate 16 /min Kaylinn Dokken [facility] 02-19-2023 00:53-0400 SaO2% (BldA) [Mass fraction] 98 % Zabrina Santanaen [facility] 02-19-2023 00:53-0400 Systolic blood pressure 153 mm[Hg] Zabrina Santanaen [facility] 02-15-2023 10:33-0400 Diastolic blood pressure 89 mm[Hg] WINCHMAN[employer]CR[employer] OPERATOR-C Judi Mikael Work Phone: [facility] 02-15-2023 10:33-0400 SaO2% (BldA) [Mass fraction] 100 % WINCHMAN/CR[employer] OPERATOR-C Judi Mikael Work Phone: [facility] 02-15-2023 10:33-0400 Systolic blood pressure 149 mm[Hg] WINCHMAN[employer]CRANE OPERATOR-C Judi Mikael Work Phone: [facility] 02-15-2023 10:00-0400 Heart rate 83 /min WINCHMAN/CRANE OPERATOR-C Judi Mikael Work Phone: [facility] 02-15-2023 10:00-0400 Respiratory rate 16 /min WINCHMAN/CRANE OPERATOR-C Judi Mikael Work Phone: [facility] 02-15-2023 08:06-0400 Body height 170.18 cm WINCHMAN/CRANE OPERATOR-C Judi Mikael Work Phone: [facility] 02-15-2023 08:06-0400 Body temperature 97.6 [degF] WINCHMAN/CRANE OPERATOR-C Judi Mikael Work Phone: [facility] 02-15-2023 08:06-0400 Body weight 89.2 kg WINCHMAN/CRANE OPERATOR-C Judi Mikael Work Phone: [facility] 10-26-2022 08:03-0500 Diastolic blood pressure 87 mm[Hg] WINCHMAN/CRANE OPERATOR-C Judi Mikael Work Phone: [facility] 10-26-2022 08:03-0500 Heart rate 70 /min WIN[employer]MAN[employer]CRANE OPERATOR-C Judi Mikael Work Phone: [facility] 10-26-2022 08:03-0500 Respiratory rate 18 /min WINCHMAN[employer]CRANE OPERATOR-C Judi Youssef Work Phone: [facility] 10-26-2022 08:03-0500 SaO2% (BldA) [Mass fraction] 98 % WINCHMAN/CRANE OPERATOR-C Judi Youssef Work Phone: [facility] 10-26-2022 08:03-0500 Systolic blood pressure 161 mm[Hg] WINCHMAN/CRANE OPERATOR-C Judi Youssef Work Phone: [facility] 10-26-2022 06:17-0500 Body height 170.18 cm WINCHMAN/CRANE OPERATOR-C Judi Youssef Work Phone: [facility] 10-26-2022 06:17-0500 Body temperature 97.2 [degF] WINCHMAN/CRANE OPERATOR-C Judi Youssef Work Phone: [facility] 10-26-2022 06:17-0500 Body weight 88.9 kg WINCHMAN/CRANE OPERATOR-C Judi Youssef Work Phone: [facility] 07-22-2022 14:34-0500 Diastolic blood pressure 83 mm[Hg] Ospina SALAM [facility] 07-22-2022 14:34-0500 Mean blood pressure 101 mm[Hg] Ospina SALAM [facility] 07-22-2022 14:34-0500 Systolic blood pressure 136 mm[Hg] Ospina SALAM [facility] 07-22-2022 14:30-0500 Blood Pressure Location Ospina SALAM [facility] 07-22-2022 14:30-0500 Diastolic blood pressure 89 mm[Hg] Ospina SALAM [facility] 07-22-2022 14:30-0500 Heart rate 62 /min Ospina SALAM [facility] 07-22-2022 14:30-0500 Respiratory rate 16 /min Anai ROTHMANAM [facility] 07-22-2022 14:30-0500 SaO2% (BldA) [Mass fraction] 98 % Ospina SALAM [facility] 07-22-2022 14:30-0500 Systolic blood pressure 141 mm[Hg] Anai ROTHMANAM [facility] 04-14-2022 14:50-0400 Blood Pressure Location Monique Marquez [facility] 04-14-2022 14:50-0400 Body temperature 97.16 [degF] Monique Reddymetz [facility] 04-14-2022 14:50-0400 Diastolic blood pressure 86 mm[Hg] Monique Reddymetz [facility] 04-14-2022 14:50-0400 Heart rate 72 /min Monique Reddymetz [facility] 04-14-2022 14:50-0400 SaO2% (BldA) [Mass fraction] 97 % Monique Reddymetz [facility] 04-14-2022 14:50-0400 Systolic blood pressure 131 mm[Hg] Monique Jimmy [facility] 01-28-2022 13:36-0400 Blood Pressure Location Moniquejuan luis ReddyJimmy [facility] 01-28-2022 13:36-0400 Body temperature 97.52 [degF] Monique Marquez [facility] 01-28-2022 13:36-0400 Diastolic blood pressure 85 mm[Hg] Monique Reddymetz [facility] 01-28-2022 13:36-0400 Heart rate 73 /min Moniquejuan luis ReddyJimmy [facility] 01-28-2022 13:36-0400 SaO2% (BldA) [Mass fraction] 96 % Monique Marquez [facility] 01-28-2022 13:36-0400 Systolic blood pressure 122 mm[Hg] Monique Reddymetz [facility] 01-11-2022 10:15-0400 Blood Pressure Location Ospina SALAM [facility] 01-11-2022 10:15-0400 Diastolic blood pressure 106 mm[Hg] Ospina SALAM [facility] 01-11-2022 10:15-0400 Heart rate 70 /min Ospina SALAM [facility] 01-11-2022 10:15-0400 Respiratory rate 28 /min Ospina SALAM [facility] 01-11-2022 10:15-0400 SaO2% (BldA) [Mass fraction] 99 % Ospina SALAM [facility] 01-11-2022 10:15-0400 Systolic blood pressure 137 mm[Hg] Ospina SALAM [facility] 01-11-2022 10:05-0400 Blood Pressure Location Ospina SALAM [facility] 01-11-2022 10:05-0400 Diastolic blood pressure 74 mm[Hg] Ospina SALAM [facility] 01-11-2022 10:05-0400 Heart rate 67 /min Ospina SALAM [facility] 01-11-2022 10:05-0400 Respiratory rate 14 /min Ospina SALAM [facility] 01-11-2022 10:05-0400 SaO2% (BldA) [Mass fraction] 97 % Ospina SALAM [facility] 01-11-2022 10:05-0400 Systolic blood pressure 128 mm[Hg] Ospina SALAM [facility] 01-11-2022 10:00-0400 Blood Pressure Location Ospina SALAM [facility] 01-11-2022 10:00-0400 Diastolic blood pressure 79 mm[Hg] Ospina SALAM [facility] 01-11-2022 10:00-0400 Heart rate 66 /min Ospina SALAM [facility] 01-11-2022 10:00-0400 Respiratory rate 16 /min Ospina SALAM [facility] 01-11-2022 10:00-0400 SaO2% (BldA) [Mass fraction] 98 % Ospina SALAM [facility] 01-11-2022 10:00-0400 Systolic blood pressure 134 mm[Hg] Ospina SALAM [facility] 01-11-2022 09:50-0400 Body temperature 97.52 [degF] Ospina SALAM [facility] 01-11-2022 09:45-0400 Respiratory rate 15 /min Ospina SALAM [facility] 01-11-2022 09:18-0400 Body temperature 97.34 [degF] Ospina SALAM [facility] 01-11-2022 09:18-0400 Respiratory rate 20 /min Ospina SALAM [facility] Encounters Encounter Date Encounter Type Care Provider Facility Start: 08-25-2023 End: 08-25-2023 ambulatory JOEL PANCHAL [facility] Facility:[facility] Start: 07-29-2023 Orders Only Evelyn Black RN [facility] eral Surgery Comment on above: Gastroparesis (Prima ry Dx) Start: 07-22-2023 End: 07-22-2023 ambulatory MARQUES BRADLEY Facility:[facility] Start: 07-22-2023 Telephone encounter Evelyn Black RN General Surgery Start: 07-22-2023 End: 07-22-2023 Nutrition therapy Melissa Montalvo RD Work Phone: General Surgery Comment on above: Gastroparesis (Prima ry Dx); Malnutrition of moderate degree (HCC); Gastro-esophageal reflux disease without esophagitis; Overweight (BMI 25.0-29.9); Dietary counseling and surveillance Start: 07-22-2023 End: 07-22-2023 Telemedicine consultation with patient Melissa Montalvo RD Work Phone: [facility] Start: 07-14-2023 End: 07-14-2023 ambulatory MARQUES BRADLEY Facility:[facility] Start: 07-14-2023 End: 07-14-2023 Subsequent hospital visit by physician Marques Bradley MD Work Phone: Gastroenterology Comment on above: Dysphagia, unspecifi ed type [R13.10] Start: 07-13-2023 End: 07-13-2023 ambulatory MARQUES BALLMADAN Facility:[facility] Start: 06-06-2023 End: 06-07-2023 ambulatory Samuel Estrella Facility[facility] Start: 05-27-2023 Telephone encounter Evelyn Black RN General Surgery Comment on above: Results Start: 05-26-2023 End: 05-26-2023 ambulatory MARQUES Jorge MIRNA Facility:[facility] Start: 05-25-2023 End: 05-25-2023 ambulatory JOEL PANCHAL [facility] Facility:[facility] Start: 05-25-2023 End: 05-25-2023 Nursing evaluation of patient and report Nurse Gi Lab 2 Work Phone: Gastroenterology Comment on above: Nausea Start: 05-16-2023 Orders Only Evelyn Black RN Gen eral Surgery Comment on above: Nausea (Primary Dx); Dysphagia, unspecified type Start: 05-06-2023 End: 05-07-2023 ambulatory MARQUES BRADLEY Facility:[facility] Start: 05-02-2023 Telephone encounter Evelyn Black RN General Surgery Start: 04-26-2023 Telephone encounter Evelyn Black RN General Surgery Start: 04-21-2023 End: 04-21-2023 ambulatory Renny Gan Other [employer] Other Start: 04-21-2023 Office outpatient vi sit 15 minutes Renny TOUSSAINT Gastroenterology Start: 04-18-2023 Telephone encounter Evelyn Black RN General Surgery Comment on above: Rigger Up - O ther Start: 04-07-2023 Telephone encounter Guillermo Martinez DO Work Phone: Gastroenterology Comment on above: Appointment Start: 04-05-2023 End: 04-05-2023 ambulatory Imad Asaad Other [employer] Other Start: 04-05-2023 Telephone encounter Imad Asaad [facility] Start: 03-29-2023 ambulatory Facility:[facility] Start: 03-26-2023 ambulatory Facility:[id number] Start: 03-26-2023 End: 03-31-2023 Evaluation and management of inpatient Renny Gan Facility:[facility] Start: 03-26-2023 ambulatory Facility:[id number] Start: 03-24-2023 End: 03-24-2023 ambulatory Imad Asaad Other [employer] Other Start: 03-24-2023 Telephone encounter Imad Asaad [facility] Start: 03-23-2023 End: 03-23-2023 Emergency department patient visit Judi Youssef Facility:[facility] Start: 03-23-2023 End: 03-23-2023 Emergency department patient visit WINCHMAN/CRANE OPERATOR-C Judi Youssef Work Phone: [facility] Work Phone: Start: 03-22-2023 End: 03-22-2023 ambulatory Imad Asaad Other [employer] Other Start: 03-22-2023 Telephone encounter Imad Asaad [facility] Start: 03-09-2023 End: 03-09-2023 ambulatory Imad Asaad Other [employer] Other Start: 03-09-2023 Telephone encounter Imad Asaad [facility] Start: 03-01-2023 End: 03-01-2023 ambulatory Imad Asaad Other [employer] Other Start: 03-01-2023 Telephone encounter Imad Asaad [facility] Start: 02-19-2023 End: 02-19-2023 Emergency department patient visit Zabrina Patton Facility:[facility] Start: 02-19-2023 End: 02-19-2023 Emergency department patient visit Zabrina Patton [facility] Start: 02-15-2023 End: 02-15-2023 Emergency department patient visit WINCHMAN/CRANE OPERATOR-C Judi Youssef Work Phone: [facility] Work Phone: Start: 11-30-2022 End: 12-01-2022 ambulatory JUDI YOUSSEF Facility:[facility] Start: 11-27-2022 End: 11-28-2022 ambulatory JUDI YOUSSEF Facility:[facility] Start: 11-26-2022 End: 11-26-2022 ambulatory Imad Asaad Other [facility] [employer] Other Start: 11-26-2022 Telephone encounter Imad Asaad [facility] Start: 11-04-2022 End: 11-04-2022 ambulatory Judi Youssef Facility:[facility] Start: 11-04-2022 End: 11-04-2022 Admission to same day surgery center WINCHMAN/CRANE OPERATOR-C Judi Youssef Work Phone: [facility] [place] Work Phone: Start: 11-04-2022 End: 11-04-2022 ambulatory WINCHMAN/CRANE OPERATOR-C Judi Youssef Work Phone: [facility] Work Phone: Start: 11-01-2022 End: 11-02-2022 ambulatory JUDI YOUSSEF Facility:[facility] Start: 10-26-2022 End: 10-26-2022 Emergency department patient visit Judi Youssef Facility:[facility] Start: 10-26-2022 End: 10-26-2022 Emergency department patient visit WINCHMAN/CRANE OPERATOR-C Judi Youssef Work Phone: [facility] Work Phone: Start: 09-23-2022 ambulatory Monique Enrique ty:Lilo GARCIA Start: 09-21-2022 End: 09-21-2022 ambulatory JUDI YOUSSEF Facility:[facility] Start: 09-18-2022 End: 09-18-2022 ambulatory BALTAZAR GEORGES . Facility:[facility] Start: 09-14-2022 End: 09-14-2022 ambulatory EUN WILSON . Facility:[facility] Start: 09-07-2022 End: 09-07-2022 ambulatory Jennie Curtisleo Other [facility] [employer] Other Start: 09-07-2022 Telephone encounter Imleo Ayon [employer] Start: 09-06-2022 End: 09-07-2022 ambulatory JUDI YOUSSEF Facility:[facility] Start: 08-20-2022 End: 08-20-2022 ambulatory BALTAZAR GEORGES . Facility:[facility] Start: 08-17-2022 End: 08-18-2022 ambulatory JUDI YOUSSEF Facility:[facility] Start: 08-11-2022 End: 08-12-2022 ambulatory JUDI YOUSSEF Facility:[facility] Start: 08-08-2022 End: 08-08-2022 ambulatory KATHRIN VANCE Facility:[facility] Start: 07-22-2022 End: 07-23-2022 ambulatory [facility] Facility:[facility] Start: 07-22-2022 End: 07-22-2022 Patient encounter procedure [facility] Start: 07-21-2022 End: 07-21-[address] NORA WINN Facility:[facility] Start: 07-15-2022 ambulatory JUDI YOUSSEF Facility: [facility] Start: 07-12-2022 Encounter for genera l adult medical examination without abnormal findings JUDI YOUSSEF [facility] Start: 07-08-2022 End: 07-09-2022 ambulatory JUDI YOUSSEF [...] End: 04-29-2022 Lab Drop off Anai REAGAN [facility] Start: 04-14-2022 End: 04-14-2022 Patient encounter procedure Monique Marquez [facility] Start: 03-27-2022 End: 03-30-2022 Evaluation and management of inpatient SHAIKH Juan Luis DAVIS Facility:[facility] Start: 03-01-2022 End: 03-01-2022 Patient encounter procedure Monique Marquez [facility] Start: 02-02-2022 End: 02-02-2022 ambulatory BALTAZAR GEORGES . Facility:[facility] Start: 01-28-2022 End: 01-28-2022 Patient encounter procedure Monique Marquez [facility] Start: 01-11-2022 End: 01-11-2022 Patient encounter procedure Anai REAGAN [facility] Start: 12-24-2021 End: 12-24-2021 Patient encounter procedure JHOANA MELGOZA [facility] Start: 08-13-2019 End: 08-16-2019 Evaluation and management of inpatient LEONA MORTENSEN Facility:[facility] Procedures Date Procedure Procedure Detail Performing Clinician Start: 07-14-2023 Esophagoscp rig transoral hypopharynx crv esoph Evelyn Black RN Start: 05-25-2023 Esophageal motility study w/interp&rpt Evelyn Black RN Start: 03-23-2023 Computed tomography of abdomen and pelvis with contrast WINCHMAN/CRANE OPERATOR-Paula Youssef Work Phone: Start: 02-15-2023 Computed tomography of abdomen and pelvis with contrast WINCHMAN/CRANE OPERATOR-C Judi Youssef Work Phone: Start: 11-04-2022 CT of small intestine WINCHMAN/CRANE OPERATOR-C Judi Youssef Work Phone: Start: 10-26-2022 Computed tomography of abdomen and pelvis with contrast WINCHMAN/CRANE OPERATOR-C Judi Youssef Work Phone: Start: 01-11-2022 Esophagogastroduodenoscopy Anai REAGAN Start: 05-13-2021 Esophagogastroduodenoscopy JHOANA Major Start: 09-30-2020 Esophagogastroduodenoscopy JHOANA Major Start: 03-13-2020 Colonoscopy JHOANA MELGOZA Start: 01-30-2020 Esophagogastroduodenoscopy JHOANA Major Start: 08-15-2019 FLUOROSCOPY OF UPPER GI AND SMALL BOWEL USING OTHER CONTRAST ORESTES CONDON Start: 05-17-2019 Colonoscopy JHOANA MELGOZA Start: 05-17-2019 Esophagogastroduodenoscopy JHOANA Major Start: 03-02-2019 Hernia surgical mesh (physical object) JHOANA MELGOZA Comment on above: Dr. Mortensen in [place]. Hernia repair JHOANA MELGOZA Hysterectomy JHOANA MELGOZA Plan of Treatment Date Care Activity Detail Author Start: 05-06-2023 Covid-19 Vaccine () Covid-19 Vaccine () [facility] Start: 05-06-2023 Influenza vaccination C [facility] Start: 09-05-2022 DEPRESSION ASSESSMENT DEPRESSION ASS ESSMENT [facility] Start: 01-01-2022 COVID-19 VACCINE (4 - Pfizer series) COVID-19 VACCINE (4 - Pfizer series) [facility] Start: 2020 SHINGRIX VACCINE (1 of 2) SHINGRIX VACCINE (1 of 2) [facility] Start: 2015 COLOGUARD (FIT-DNA) COLOGUARD (FIT-D NA) [facility] Start: 2015 Colonoscopy COLONOSCOPY [facility] Start: 2015 COLORECTAL CANCER SCREENING COLORECTAL CANCER SCREENING [facility] Start: [address] COLONOGRAPHY [facility] Start: 2015 DIABET[facility]EN [facility] Start: 2015 Diabetes Screening Diabetes Screenin g [facility] Start: 2015 FECAL OCCULT BLOOD FECAL OCCULT BLOO D [facility] Start: 2015 Lipid 1996 panel - S cristine or Plasma Lipid Screening [facility] Start: 2015 LIPID SCREEN LIPID SCREEN [facility] Start: 2015 SIGMOIDOSCOPY SIGMOIDOSCOPY [facility] Start: 2010 Mammography [facility] Start: 2000 HPV TESTING HPV TESTING [facility] Start: 1991 PAP TESTING PAP TESTING [facility] Start: 1989 Urine microalbumin profile [facility] Start: 1988 HEPATITIS C SCREENING HEPATITIS C SC REENING [facility] Start: 1988 HIV SCREENING HIV SCREENING [facility] Start: 1970 COVID-19 VACCINE (#1) COVID-19 VACCI NE (#1) [facility] Start: 1970 HEPATITIS B (1 of 3 - 3-dose series) HEPATITIS B (1 of 3 - 3-dose series) [facility] Start: 1970 Hepatitis B Vaccine (1 of 3 - 3-dose series) Hepatitis B Vaccine (1 of 3 - 3-dose series) [facility] End: 07-29-2024 EGD - THERAPEUTIC, EUS, OR [...] starti ng 05/16/2023 until 06/14/2024 Patient Education [facility] Work Phone: Patient referral [facility] Work Phone: SURGICAL PATHOLOGY [facility] Work Phone: Comment on above: Release Upon Orderin g for 1 Occurrences starting 07/14/2023, 1 completed [facility] Immunizations Immunization Date Immunization Notes Care Provider [facility] 06-09-2022 influenza virus vaccine, unspecified formulation Nurse 2 Work Phone: [facility] 03-18-2022 SARS-CoV-2 mRNA (gtapmujbifs-ovei-lnb jett) vaccine Ospina Eye[employer] [facility] 11-06-2021 SARS-CoV-2 (COVID-19 ) mRNA BNT-162b2 vax Ospina SALAM [facility] 05-06-2021 influenza virus vaccine, unspecified formulation JHOANA MELGOZA [facility] 02-26-2021 SARS-CoV-2 (COVID-19 ) mRNA BNT-162b2 vax JHOANA MELGOZA [facility] 02-05-2021 SARS-CoV-2 (COVID-19 ) mRNA BNT-162b2 vax Anai REAGAN [facility] Comment on above: Result Comment: 2021: [id number] NEGATED: Highlighted row has not occurred!04-14-2022 influenza virus vaccine, unspecified formulation Monique Marquez [facility] Payers Date Payer Category Payer Unknown RINA MARTINEZ SS PPO [id number] 2022-Present [phone] [address] [place] [address] PPO [id number] 2018 Private Health Insurance [id number] 2018 Private Health Insurance [facility] CHOICE PLUS [id number] 2018-Present [phone] [address] [place] [address] HMO [id number] 1970 Unknown [id number] 2.16.840.1.786199.3.579.2 .647 1970 Unknown [id number] 2.16.840.1.953259.3.579.2 .593 1970 Unknown [id number] 2.16.840.1.228840.3.579.2 .593 1970 Unknown [id number] 2.16.840.1.312353.3.579.2 .593 1970 Unknown [id number] 2.16.840.1.781295.3.579.2 .593 1970 Unknown [id number] 2.16.840.1.386790.3.579.2 .593 1970 Unknown [id number] 2.16.840.1.981104.3.579.2 .593 1970 Unknown [id number] 2.16.840.1.992285.3.579.2 .593 1970 Unknown [id number] 2.16.840.1.562688.3.579.2 .593 1970 Unknown [id number] 2.16.840.1.484271.3.579.2 .593 1970 Unknown [id number] 2.16.840.1.629538.3.579.2 .593 1970 Unknown [id number] 2.16.840.1.804756.3.579.2 .593 1970 Unknown [id number] 2.16.840.1.022434.3.579.2 .593 1970 Unknown [id number] 2.16.840.1.527911.3.579.2 .593 1970 Unknown [id number] 2.16.840.1.605763.3.579.2 .593 1970 Unknown [id number] 2.16.840.1.952227.3.579.2 .593 1970 Unknown [id number] 2.16.840.1.371559.3.579.2 .593 1970 Unknown [id number] 2.16.840.1.308761.3.579.2 .593 1970 Unknown [id number] 2.16.840.1.577461.3.579.2 .593 1970 Unknown [id number] 2.16.840.1.319765.3.579.2 .593 1970 Unknown [id number] 2.16.840.1.566874.3.579.2 .593 1970 Unknown [id number] 2.16.840.1.006021.3.579.2 .356 1970 Unknown [id number] 2.16.840.1.002321.3.579.2 .356 1970 Unknown [id number] 2.16.840.1.029378.3.579.2 .727 1970 Unknown [id number] 2.16.840.1.670125.3.579.2 .727 1970 Unknown [id number] 2.16.840.1.724216.3.579.2 .727 1970 Unknown [id number] 2.16.840.1.962347.3.579.2 .727 1959 Medicaid [id number] 1959 Self-pay [id number] 1959 Unknown [id number] 1959 Unknown [id number] Medicare Medicare [id number] Unknown [id number] 2.16.840.1.457817.3.579.2 .531 Unknown [id number] 2.16.840.1.539258.3.579.2 .531 Unknown [id number] 2.16.840.1.219874.3.579.2 .531 Unknown [id number] 2.16.840.1.005398.3.579.2 .531 Unknown [id number] 2.16.840.1.799314.3.579.2 .531 Worker's Compensation [employer] [facility] [id number] Social History Date Type Detail Facility Start: 12-03-2021 End: 05-06-2023 Tobacco smoking status Ex-smoker (finding) [facility] Start: 08-12-2020 End: 05-06-2023 Sex Assigned At Female [facility] Tobacco smoking status Never [facility] Start: 1970 Sex Assigned At Female F [facility] End: 09-05-2011 History of tobacco use Current smoker [facility] Work Phone: End: 09-05-2011 History of tobacco use Cigarette Smoker [facility] Work Phone: Start: 04-28-2018 End: 05-06-2023 Tobacco use and exposure Smokeless tobacco non-user [facility] Work Phone: Start: 04-28-2018 End: 05-06-2023 Alcohol intake Current drinker of alcohol (finding) [facility] Start: 08-12-2020 End: 05-06-2023 History of Social function [facility] Start: 04-28-2018 End: 05-06-2023 Tobacco Comment still smokes [facility] Start: 04-28-2018 Alcohol [facility] Start: 1970 Sex Assigned At Not on file [facility] Start: 07-14-2023 Alcohol intake Ex-drinker (finding) [facility] Functional Status Date Assessment Result Facility 02-19-2023 Functional Status N/A [facility] 07-22-2022 Functional Status N/A [facility] 04-14-2022 Functional Status N/A [facility] Clinical Notes 12-02-2021 to 08-25-2023 Evelyn Black RN - 07/29/2023 11:17 AM ESTPatient InstructionsTelephone Encounter - Evelyn Black RN - 07/22/2023 3:[address] - 07/22/2023 1:15 PM EST Note Date & Type Note Facility 08-25-2023 Note HNO ID: [id number] Author: Ellis Mayberry, DO Service: ? Author Type: Resident Type: [...] August 25, 2023 TIME: 2:59 PM CSN: [id number] [facility] 08-25-2023 Note Q3 Patient Name: Constantino Cardoso Procedure Date: 08/25/2023 2:38 PM Date of : 1970 Admit Type: Outpatient Age: 53 Gender: Female Note Status: Finalized Attending MD: Marques Bradley MD, [id number] Procedure: Upper GI endoscopy Indications: Gastroparesis- for GPOEM Providers: Marques Bradley MD, [facility] (Fellow) Patient Profile: This is a 53 [...] the patient. Procedure Code(s): --- Professional --- 16280 Diagnosis Code(s): --- Professional --- K44.9 Z98.890 CPT copyright 2020 [employer]. All rights reserved. Attending Participation: I personally performed the entire procedure. Scope In: 2:59:10 PM Scope Out: 3:37:20 PM MD Marques Rainey MD 08/25/2023 3:41:00 PM This report has been signed electronically by Marques Bradley MD Number of Addenda: 0 Note Initiated On: 08/25/2023 2:[address] [facility] 07-29-2023 Note HNO ID: [id number] Author: Evelyn Black RN Service: ? Author Type: Registered Nurse Type: Progress Notes Filed: 07/29/2023 11:18 AM Note Text: e [facility] 07-29-2023 History of Present illness Narrative e documented in this encounter [facility] 07-22-[address] - 07/22/2023 [...] High Protein, Atkins, Boost Glucose Control, Owyn, [place] Breakfast Essentials Light Start mixed with Fairlife [...] calories, no carbonation, no caffeine. Protein juarez (pdcdcxd2s, Isopure, Gatorade protein), electrolyte drinks (Gatorade or Powerade zero, sugar free liquid IV or Drip Drop), sugar free jello and sugar free popsicles are also acceptable. Nutrition Monitoring & Evaluation: increase PO intake >75% of estimated needs, weight check and patient update Need for Follow up: based on surgery status documented in this encounter [facility] 07-22-2023 Note HNO ID: [id number] Author: Melissa Montalvo RD Service: ? Author Type: Registered Dietitian Type: Progress Notes Filed: 07/22/2023 4:06 PM Note Text: [facility] Nutrition Therapy: Virtual Consult - Initial Assessment I have communicated my name and active licensure. The patient?s identity and physical location were verified at the time of this visit. Either the patient or their legal outside sales representative insurance has been informed of the risks and [...] High Protein, Atkins, Boost Glucose Control, Owyn, [place] Breakfast Essentials Light Start mixed with Fairlife [...] calories, no carbonation, no caffeine. 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 [place] body weight: 159 lbs. 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 [facility] 07-22-2023 Miscellaneous Notes BMI SPECIALTY CARE COORDINATION TELEPHONE ENCOUNTER Pt was seen in clinic and an EGD was ordered and completed. Recommendation was a GPOEM. Will consult with surgeon next week regarding next POC for pt. Pt VU. documented in this encounter [facility] 07-22-2023 History of Present illness Narrative [facility] Nutrition Therapy: Virtual Consult - Initial Assessment I have communicated my name and active licensure. The patient s identity and physical location were verified at the time of this visit. Either the patient or their legal outside sales representative insurance has been informed of the risks and [...] High Protein, Atkins, Boost Glucose Control, Owyn, [place] Breakfast Essentials Light Start mixed with Fairlife fat free or 1% milk. -Check www.bariatricfusion.com or www.ECO-SAFE.com for additional options. Take small bites, eat slowly, chew food well, and always eat protein first. Separate eating and drinking by 30 min before and after. Aim for >64 oz water/day. Take small sips and avoid straws. Liquids should be sugar-free, no calories, no carbonation, no caffeine. 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 [place] body weight: 159 lbs. 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 Procedure Code(s): --- Professional --- 44556 Diagnosis Code(s): --- Professional --- K44.9 K31.89 Z98.890 R10.13 CPT copyright 2020 [employer]. All rights reserved. Attending Participation: I personally performed the entire procedure. Scope In: 10:40:19 AM Scope Out: 10:50:37 AM MD Marques Rainey MD 07/14/2023 10:53:09 AM This report has been signed electronically by Marques Bradley MD Number of Addenda: 0 Note Initiated On: 07/14/2023 10:[address] [facility] 07-14-2023 Nurse Note 1121: Dr. Mehrdad Heart paged : Patient Constantino Cardoso in post [...] In Department: GASTROENTEROLOGY documented in this encounter [facility] 07-13-2023 Note HNO ID: [id number] Author: Brennen Shaw, PhD Service: ? Author Type: Physician Type: Progress Notes Filed: 07/19/2023 10:07 AM Note Text: [facility] BARIATRIC SURGERY BEHAVIORAL HEALTH EVALUATION DATE OF SERVICE: July 13, 2023 TIME OF SERVICE: 2:10 PM-3:29 PM COST CENTER: [facility] CPT CODE: - 03035 Brief Emotional/Behavioral Assessment with scoring/documentation - [id number] Virtual Psych Diagnostic Eval BILLING CODE: ENDO PSYL MAIN 83607/Marco DATE OF FIRST SERVICE THIS CYCLE: July 13, 2023 SESSION #: 1 BMI Surgical Pathway Visit type: Bariatric Surgeon Visit I have communicated my name and active licensure. The patient's identity and physical location were verified at the time of this visit. Either the patient or their legal outside sales representative insurance has been informed of the risks and [...] other people who have undergone the procedure (correction Specific areas of understanding that should be [...] the binge episod (more content not included)... [facility] 05-27-2023 Miscellaneous Notes BMI SPECIALTY CARE COORDINATION TELEPHONE ENCOUNTER Pt contacted today regarding testing ordered when she had a consult with Dr Bradley. Manometry was normal and her GES was severely delayed. Reviewed results and will discuss with if POP is the next plan of care. Will update pt. Pt agreed with plan. documented in this encounter [facility] 05-26-2023 Note HNO ID: [id number] Author: Nabil Bell RT(R) Service: Nuclear Medicine [...] 715 PATIENT DISCHARGED TO: Ambulatory patient, left [place] department area. A Diagnostic radioactive procedure has taken place, with no further precautions necessary other than routine body substance precautions. More information regarding radiation safety can be found using this link: [email or web address]%20Nuclear%20Medicine [email or web address] SIGNATURE: RT Charmaine(R) PATIENT NAME: Constantino Cardoso DATE: May 26, 2023 TIME: 7:17 AM PAGER/CONTACT #: [facility] 05-25-2023 Note HNO ID: [id number] Author: Pedro Gonzalez LPN Service: ? Author Type: LICENSED NURSE Type: Progress Notes Filed: 05/25/2023 4:15 PM Note Text: Name: Constantino Cardoso [facility]#: [id number] Date: 05/25/2023 ESOPHAGEAL MANOMETRY TEST Indication: Nausea [...] patient tolerated the test without difficulty. .Pedro Gonzaelz LPN [facility] 05-25-2023 History of Present illness Narrative Name: Constantino Cardoso [facility]#: [id number] Date: 05/25/2023 ESOPHAGEAL MANOMETRY TEST Indication: Nausea [...] .Pedro Gonzalez LPN documented in this encounter [facility] 05-16-2023 Miscellaneous Notes BMI SPECIALTY CARE COORDINATION [...] a gastric bypass. documented in this encounter [facility] 05-06-2023 Note HNO ID: [id number] Author: Marques Bradley MD Service: ? Author [...] for internal providers or letter via the [employer] Postal Service for external providers. Chief Complaint: [...] Bradley MD Date: 05/12/2023 Time: 8:[address] [facility] 05-02-2023 Miscellaneous Notes BMI SPECIALTY CARE COORDINATION TELEPHONE ENCOUNTER Chief complaint & duration dysphagia. Type of procedure: hernia repair hiatal with Dr. MORTENSEN in [place] February of 2019. Sending OP notes Nursing assessment (subjective/objective) . pain in chest area and getting worse Went to [place] ED March 2023 who told her she needed a stent in her heart..but her c/o were difficulty swallowing and sent pt home and referred her to [facility] and was there in the hospital for [...] weight 198 pounds 2 wks ago. Recommendation: appt after records obtained documented in this encounter [facility] 04-26-2023 Miscellaneous Notes [facility] SPECIALTY CARE COORDINATION TELEPHONE ENCOUNTER Second attempt to contact this pt. Pt has upcoming information, and unable to complete any chart prep, history, symptoms, testing etc. LVM and call back number. documented in this encounter [facility] 04-21-2023 Evaluation note Encounter Date Diagnosis Assessment Notes Apr, Esophageal dysmotility (ICD-10 - K22.4) Apr, Esophageal spasm (ICD-10 - K22.4) Apr, Nausea & vomiting (ICD-10 - R11.2) Patinet reports that she still has nausea but no vomiting Patient reports that she is to see Dr. Strong at [facility] Patient is to start dicyclomine 20 mg 4 times daily sent to [facility] today RTO 6 weeks Apr, Dysphagia (ICD-10 - R13.10) [employer] Other 08-14-2023 Miscellaneous Notes* Telephone Encounter - Evelyn Black RN - 04/18/2023 2:13 PM EDT [facility] SPECIALTY CARE COORDINATION TELEPHONE ENCOUNTER Contacted pt regarding a referral from Dr Martinez's office. LVM and call back number. [facility] Miscellaneous Notes* Telephone Encounter - Yancy Lopez - 04/07/2023 1:15 PM EDT Referral rec'd [facility] Evaluation + Plan note Extracted from: Title:ED [...] pain, # 20 tab(s), Refills(s) 0, Pharmacy: [facility]/pharmacy #[id number], 170, cm, 02/19/23 0:56:00 EDT, Height/Length Dosing, 90.2, kg, 02/19/23 0:56:00 EDT, Weight Dosing XR Elbow 3+ Views Right XR Wrist 3+ Views Right [facility]06-17-2023 Hospital Discharge instructions Patient Education 02/19/2023 [...] are safe for you. General instructions Take twyu-pud-bktfnam and prescription medicines only as told by [...] provider. Document Revised: 12/29/2020 Document Reviewed: 12/29/2020 [employer] Patient Education 2022 [employer]. Follow Up Care 02/19/2023 00:51:16 With:JUDI YOUSSEF Address: [address] [place] [phone] Business (1) When:02/22/2023 Comments:Take the pain medication as prescribed as needed for pain. Please follow-up with your primary care doctor in the next 2 to 3 days for further evaluation management. Please return to the ED for any new or worsening symptoms or [facility]08-10-2022 Hospital Discharge instructions Patient Education 04/14/2022 [...] water added (diluted fruit juice). Eat bland, zdno-vj-mfdpdb foods in small amounts as you are able. These foods include bananas, applesauce, rice, lean meats, toast, and crackers. Avoid fluids that contain a lot of sugar or caffeine, such as energy drinks, sports drinks, and soda. Avoid alcohol. Avoid spicy or fatty foods. General instructions Take jlyh-rgd-rrgtmuk and prescription medicines only as told by your health care provider. Drink enough fluid to keep your urine pale yellow. Wash your hands often using soap and water. If soap and water are not available, use hand pediatric neurologist. Make sure that all people in your [...] eating and drinking to prevent dehydration. Take jpif-pna-pwzpbjd and prescription medicines only as told by [...] 08/22/2006 Document Revised: 12/14/2019 Document Reviewed: 01/30/2019 [employer] Patient Education 2019 [employer]. Follow Up Care 01/28/2022 13:58:23 With:Monique Marquez CNP Address: When:3 months [facility] 05-26-2022 Hospital Discharge [...] drinks. ?Tomatoes and foods made with tomatoes. ?Adel or spicy foods. ?Chocolate and peppermint. Do not drink alcohol. General instructions Take cjln-jcj-tgeigiw and prescription medicines only as told by [...] 11/11/2004 Document Revised: 12/18/2018 Document Reviewed: 12/18/2018 [employer] Patient Education 2020 [employer]. Follow Up Care 01/13/2022 12:36:01 With:Monique Marquez CNP Address: When:3 months [facility] 05-09-2022 Hospital Discharge instructions Patient Education 01/11/2022 09:56:58 Endoscopy, Care After Procedure [facility] Endoscopy Care After Procedure Please read the instructions outlined below and refer to this sheet in the next few weeks. These discharge instructions provide you with general information on caring for [facility] Your doctor may also give you specific [...] 04/05/2005 Document Re-Released: 02/13/2007 ExitCare Patient Information [employer]. 01/11/2022 09:56:58 Pearce's Esophagus Pearce's Esophagus Pearce's [...] drinks. ?Tomatoes and foods made with tomatoes. ?Adel or spicy foods. ?Chocolate and peppermint. Do not drink alcohol. General instructions Take ekpx-vxg-vehtdcm and prescription medicines only as told by [...] 11/11/2004 Document Revised: 12/18/2018 Document Reviewed: 12/18/2018 [employer] Patient Education [employer]. Follow Up Care 12/03/2021 15:32:26 With:Anai REAGAN Address: [address] [place] [address] Business (1) When:1 to 2 weeks Comments:Call for any problems. [facility]03-30-2022 Hospital Discharge instructions Follow Up Care 12/02/2021 10:32:32 With:JHOANA MELGOZA PA-C, URL Address: [address] [place] [address] When: Unknown [facility] Evaluation + Plan note Future Appointments Appointment Date:01/11/2022 09:40:00 AM Scheduled Provider: Location:[facility] Appointment Type:Surgery FT [facility] Evaluation + Plan note Future Appointments Appointment Date:04/14/2022 03:00:00 PM Scheduled Provider:Monique Marquez CNP Location:[facility] Appointment Type:[facility] Follow Up Future Scheduled Tests Radiology* NM Gastric Emptying Study 01/28/22 [facility] Evaluation + Plan note Future Appointments Appointment Date:04/14/2022 03:00:00 PM Scheduled Provider:Monique Marquez CNP Location:[facility] Appointment Type:[facility] Appointments Appointment Date:04/20/2022 12:00:00 PM Scheduled Provider: Location:.[facility] Appointment Type:US Abdominal/Pelvis () Appointment Date:06/02/2022 09:45:00 AM Scheduled Provider:Anai REAGAN MD Location:[facility] Appointment Type:[facility] Follow Up Future Scheduled Tests Laboratory* Fecal WBC Lactoferrin 04/14/22 * Giardia lamblia, Direct Detection EIA 04/14/22 * O & P Exam, Routine 04/14/22 * Clostridium difficile by PCR 04/14/22 * Enteric Panel by PCR 04/14/22 * CBC w/ Auto Diff 04/14/22 * Comprehensive Metabolic Panel 04/14/22 Radiology* US Abdomen Complete 04/20/22 [facility] Evaluation + Plan note Future Appointments Appointment Date:06/02/2022 09:45:00 AM Scheduled Provider:Anai REAGAN MD Location:[facility] Appointment Type:[facility] Follow Up Diagnostic Tests Pending * O & P Exam, Routine 04/29/22 * Giardia lamblia, Direct Detection EIA 04/29/22 [facility] noteNo assessment information available [facility] Work Phone: Evaluation noteNo InformationNocrittenton behavioral health [employer] Other Evaluation note* Diagnosis Nausea- Primary Nausea alone Dysphagia, unspecified type documented in this encounter [facility] note* Diagnosis Nausea Nausea alone documented in this encounter [facility] note* Diagnosis Dysphagia, unspecified type Gastroparesis History of Ramiro fundoplication Personal history of surgery to other organs [facility] Diagnosis Gastroparesis- Primary Malnutrition of moderate degree (HCC) Malnutrition of moderate degree Gastro-esophageal reflux disease without esophagitis Esophageal reflux Overweight (BMI 25.0-29.9) Overweight Dietary counseling and surveillance Dietary surveillance and counseling [facility]* Diagnosis Gastroparesis- Primary [facility] Narrative - Reported* Type Description Date Medical History mitral valve prolapse Medical History gallstones Medical History Acid reflux Medical History Hiatal Hernia Medical History headache Surgical History hysterectomy Surgical History cholecystectomy Surgical History hiatal hernia repair Hospitalization History see above Hospitalization History kindey infections hospit alized x3 [employer] Other Hospital course Narrative No data available for this section [facility] Hospital Discharge instructions No data available for this section [facility] Additional Instructions Follow-up with your primary care doctor Return to ED if develop worsening symptoms [facility] Work Phone: Hospital Discharge instructions Additional Instructions If your symptoms return/worsen or you develop any further concerns or symptoms please see your doctor or return to the emergency department immediately. Please be sure to continue follow-up with the registered diet technician and with your scheduled EGD and further testing.[facility] Work Phone: Progress note No data available for this section [facility])* Diagnostic Procedure Only (Routine) - Authorized Specialty Diagnoses / Procedures Referred By Contac t Referred To Contact MOLECULAR & FUNCTIONAL IMAGING Diagnoses Nausea Procedures NM GASTRIC EMPTYING SOLID GASTRIC EMPTYING STUDY Marques Bradley MD [address] [place] [address] Molecular & Functional Imaging [address] [place] [address] Referral ID Status Reason Start Date Expiration Date Visits Requested Visits Authorized [id number] Authorized Auto-Generat ed Referral 05/16/2023 06/14/2024 1 1 * Outpatient Procedure (Routine) - Authorized Specialty Diagnoses / Procedures Referred By Eileen t Referred To Contact [facility] Diagnoses Nausea Procedures MANOMETRY ESOPHAGEAL ESOPHAGEAL MOTILITY STUDY W/INTERP&RPT Marques Bradley MD [address] [place] [address] [address] Referral ID Status Reason Start Date Expiration Date Visits Requested Visits Authorized [id number] Authorized Auto-Generat ed Referral 05/16/2023 05/16/2024 1 1 [facility] for referral (narrative)* Outpatient Procedure (Routine) - Closed Specialty Diagnoses / Procedures [facility] Referred To Contact [facility] Diagnoses Dysphagia, unspecified type Gastroparesis History of Ramiro fundoplication Procedures EGD - THERAPEUTIC, EUS, OR TUBE INTERVENTIONS ESOPHAGOGASTRODUODENOSCOPY TRANSORAL DIAGNOSTIC STOMACH SURGERY PROCEDURE UNLISTED Marques Bradley MD [address] [place] [address] [address] Referral ID Status Reason Start Date Expiration Date V isits Requested Visits Authorized [id number] Closed Auto-Generate d Referral 05/27/2023 05/27/2024 1 1 [facility] for referral (narrative)* Outpatient Procedure (Routine) - Authorized Specialty Diagnoses / Procedures [facility] Referred To Contact [facility] Diagnoses Gastroparesis Procedures EGD - THERAPEUTIC, EUS, OR TUBE INTERVENTIONS ESOPHAGOGASTRODUODENOSC OPY TRANSORAL DIAGNOSTIC STOMACH SURGERY PROCEDURE UNLISTED Marques Bradley MD [address] [place] [address] [address] Referral ID Status Reason Start Date Expiration Date Visits Requested Visits Authorized [id number] Authorized Auto-Generat ed Referral 3 07/29/2024 1 1 [facility] for visit Narrative* Outpatient Procedure (Routine) - Closed Specialty Diagnoses / Procedures Referred By Contsavanah t Referred To Contact [facility] Diagnoses Dysphagia, unspecified type Gastroparesis History of Ramiro fundoplication Procedures EGD - THERAPEUTIC, EUS, OR TUBE INTERVENTIONS ESOPHAGOGASTRODUODENOSCOPY TRANSORAL DIAGNOSTIC STOMACH SURGERY PROCEDURE UNLISTED Marques Bradley MD [address] [place] [address] [facility] [address] [place] [address] Referral ID Status Reason Start Date Expiration Date V isits Requested Visits Authorized [id number] Closed Auto-Generate d Referral 05/27/2023 05/27/2024 1 1 [facility] Summary Purpose Family History No Family History Records Found Relationship Condition Age at Onset Recorded Date/T daniel father Myocardial infarction Unknown Malignant neoplasm Unknown sister Seizure Unknown Hypertension Unknown Advance Directives No Advanced Directives Records Found Advance Directive Response Recorded Date/ Time Advance Directives No November 23, 018 9:23am Advance Directive Response Recorded Date/ Time Advance Directives No November 23, 2 018 10:23am Hospital Course Note MR#: [id number] [facility] Pt. Name: Constantino Cardoso Admitted: 08/13/2019 Discharged: [...] 49-year-old female, who was transferred to [facility] from [facility] with acute abdominal pain. The pain has started on Tuesday while at work. 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 The pain feels similar to when she was here in April during her stay. During that time, she was told there was nothing left for Dr. Mortensen to do and she has been following up with GI specialist in [place]. She is actually due to have an EGD on August 22, 2019. She has been having nausea, but no vomit (more content not included)... Chief Complaint and Reason for Visit Chief Complaint stomach pain/hx marium Chief Complaint stomach pain/hx marium R10.9 K59.00 Chief Complaint abd pain stomach pian/vomiting Additional Source Comments INFORMATION SOURCE (unrecogn ized section and content) DATE CREATED AUTHOR 06/03/2020 [facility] DATE CREATED AUTHOR AUTHOR'S ORGANIZ ATION 01/17/2023 [facility] DATE CREATED AUTHOR AUTHOR'S ORGANIZ ATION 04/02/2023 [facility] DATE CREATED AUTHOR AUTHOR'S ORGANIZ ATION 05/16/2023 [facility] DATE CREATED AUTHOR AUTHOR'S ORGANIZ ATION 06/11/2023 [facility] DATE CREATED AUTHOR AUTHOR'S ORGANIZ ATION 08/26/2023 [facility] Care Team (unrecognized sect ion and content) Team Status: Inactive Member Role Status Dates Judi Youssef WINCHMAN/CRANE OPERATOR-C Primary Care Provider Active Conner Griffith DO [...] Active Pete Thakkar DO Emergency Provider Active World Designer Relationship Specialty Start Date End Date Joel Alejandra PCP - General Family Medicine 04/26/18 Rafa Rangel [address] [place] [phone] Referring General Surgery 04/26/18 World Designer Relationship Specialty Start Date End Date Joel Alejandra PCP - General Family Medicine 04/26/18 Rafa Rangel [address] [place] [address] Referring General Surgery 04/26/18 World Designer Relationship Specialty Start Date End Date NyJoel Onel PCP - General Family Medicine 04/26/18 Rafa Rangel [address] [place] [phone] Referring General Surgery 04/26/18 World Designer Relationship Specialty Start Date End Date Ny Joel Panchal PCP - General Family Medicine 04/26/18 [facility] [address] [place] [phone] Referring General Surgery 04/26/18 World Designer Relationship Specialty Start Date End Date Ny Joel Panchal PCP - General Family Medicine 04/26/18 Rafa Rangel [address] [place] [address] Referring General Surgery 04/26/18 World Designer Relationship Specialty Start Date End Date Joel Alejandra PCP - General Family Medicine 04/26/18 Rafa aRngel [address] [place] [address] Referring General Surgery 04/26/18 World Designer Relationship Specialty Start Date End Date DomenicoJoel blanco PCP - General Family Medicine 04/26/18 Rafa Rangel [address] [place] [address] Referring General Surgery 04/26/18 World Designer Relationship Specialty Start Date End Date DomenicoJoel blanco PCP - General Family Medicine 04/26/18 Rafa Rangel [address] [place] [address] [address] [place] [phone] Referring General Surgery 04/26/18 World Designer Relationship Specialty Start Date End Date DomenicoJoel blanco Onel PCP - General Family Medicine 04/26/18 Rafa Rangel [address] [place] [address] [facility] [address] [place] [phone] Referring General Surgery 04/26/18 World Designer Relationship Specialty Start Date End Date Ny Joel Panchal PCP - General Family Medicine 04/26/18 Rafa Rangel [address] [facility] [address] [place] [address] Referring General Surgery 04/26/18 World Designer Relationship Specialty Start Date End Date Joel Alejandra PCP - General Family Medicine 04/26/18 [facility] [address] [phone] Referring General Surgery 04/26/18 Goals (unrecognized section and content) Goals may be documented in a n alternate section REASON FOR VISIT (unrecogniz ed section and content) Reason Comments Appointment Reason Comments Rigger Up - Other Reason Onset Date Comments Procedure 05/25/2023 Manometry Esopha geal Specialty Diagnoses / Procedures Referred By Contac t Referred To Contact [facility] Diagnoses Nausea Procedures MANOMETRY ESOPHAGEAL ESOPHAGEAL MOTILITY STUDY W/INTERP&RPT Marques Bradley MD [address] [place] [address] [facility] [address] [place] [address] Referral ID Status Reason Start Date Expiration Date V isits Requested Visits Authorized [id number] Closed Auto-Generate d Referral 05/16/2023 05/16/2024 1 1 Reason Comments Results Reason Comments Patient Education Assessment Source Comments (unrecognize d section and content) In the event this informatio n is protected by the Federal Confidentiality of Alcohol and Drug Abuse Patient Records regulations: The Federal rules restrict any use of the information to criminally investigate or prosecute any alcohol or drug abuse patient.[facility] the event this information is protected by the Federal Confidentiality of Alcohol and Drug Abuse Patient Records regulations: The Federal rules restrict any use of the information to criminally investigate or prosecute any alcohol or drug abuse patient.[facility] Center[facility] the event this information is protected by the Federal Confidentiality of Alcohol and Drug Abuse Patient Records regulations: The Federal rules restrict any use of the information to criminally investigate or prosecute any alcohol or drug abuse patient.[facility] the event this information is protected by the Federal Confidentiality of Alcohol and Drug Abuse Patient Records regulations: The Federal rules restrict any use of the information to criminally investigate or prosecute any alcohol or drug abuse patient.[facility] the event this information is protected by the Federal Confidentiality of Alcohol and Drug Abuse Patient Records regulations: The Federal rules restrict any use of the information to criminally investigate or prosecute any alcohol or drug abuse patient.[facility] Center[facility] the event this information is protected by the Federal Confidentiality of Alcohol and Drug Abuse Patient Records regulations: The Federal rules restrict any use of the information to criminally investigate or prosecute any alcohol or drug abuse patient.[facility] Center[facility] the event this information is protected by the Federal Confidentiality of Alcohol and Drug Abuse Patient Records regulations: The Federal rules restrict any use of the information to criminally investigate or prosecute any alcohol or drug abuse patient.[facility] Center[facility] the event this information is protected by the Federal Confidentiality of Alcohol and Drug Abuse Patient Records regulations: The Federal rules restrict any use of the information to criminally investigate or prosecute any alcohol or drug abuse patient.[facility] Center[facility] the event this information is protected by the Federal Confidentiality of Alcohol and Drug Abuse Patient Records regulations: The Federal rules restrict any use of the information to criminally investigate or prosecute any alcohol or drug abuse patient.[facility] the event this information is protected by the Federal Confidentiality of Alcohol and Drug Abuse Patient Records regulations: The Federal rules restrict any use of the information to criminally investigate or prosecute any alcohol or drug abuse patient.[facility] Center[facility] the event this information is protected by the Federal Confidentiality of Alcohol and Drug Abuse Patient Records regulations: The Federal rules restrict any use of the information to criminally investigate or prosecute any alcohol or drug abuse patient.[facility] Center[facility] the event this information is protected by the Federal Confidentiality of Alcohol and Drug Abuse Patient Records regulations: The Federal rules restrict any use of the information to criminally investigate or prosecute any alcohol or drug abuse patient.[facility] FOR RECORDS PERTAINING TO PATIENTS WHO ARE [...] BE BASED ON THE PRIMARY CLINICAL RECORDS. [facility] [employer] [facility]. provides no warranty or guarantee of the accuracy or completeness of information in this document.
== END 2023-11-24 09:50 | disposition home or self-care (01) ==
LOC: RAD 09:52
PROVIDERS: PCP Nurse Practitioner Family; Visit Provider Nurse Practitioner Family
DX: M54.50 Low back pain, unspecified (principal); M51.36 Other intervertebral disc degeneration, lumbar region
CPT/HCPCS: 72100

== ENCOUNTER 2023-11-27 06:28 | Observation (INO) | payer BC, SELFPAY ==
[2023-11-27] VITALS (16 sets, daily range): BP systolic 118–163; BP diastolic 73–105; PULSE 45–72; RESP 14–20; TEMP 36.5–36.8; O2SAT 93–100; BMI 27.6; BMI 28.5
--- OUTSIDE RECORDS SUMMARY | 2023-11-27 06:34 | XMS_ITS | CCD ---
Author Organization [facility] Care Team Providers Care Economic Development Coordinator Name Role Phone LEONA MORTENSEN Admitting Unavailable LEONA MORTENSEN Attending Unavailable KEVIN HERRERA Primary Care Unavailable KEVIN HERRERA Referring Unavailable [place] Procedure Practitioner Unavailab ORESTES Cruz Surgeon Unavailable JUDI YOUSSEF Primary Care Physician DONI Youssef Primary Care Provider [phone] DO Conner Griffith Emergency Provider Jennie Ayon Unavailable MD Jennie Ayon Attending Provider [phone] JOHNATHAN RUDOLPH Attending Unavailibis RUDOLPH, DR [...] Admitting Unavailable MIKAEL, JUDI Consulting Unavailable MIKAEL, UJDI Attending Unavailable MIKAEL, JUDI Primary Care Unavailable FAB ., BALTAZAR Consulting Unavailable FAB ., BALTAZAR Admitting Unavailable FAB ., BALTAZAR Attending Unavailable MIKAEL, JUDI Primary Care Unavailable MIKAEL, JUDI Admitting Unavailable ZIEBER, DR RUSH Hairston Consulting Unavailable MIKAEL, JUDI Attending Unavailable MIKAEL, JUDI Primary Care Unavailable MIKAEL, JUDI Consulting Unavailable MKIAEL, JUDI Primary Care Unavailable ISAAK Larson, DR [...] Unavailable MIKAEL, JUDI Consulting Unavailable LINDA Youssef-C [facility] Primary Care Provider DO Conner Griffith Emergency Provider DO Pete Thakkar Emergency Provider [phone] [facility] Primary Care Provider [phone] ClaireRafanoemi Unavailable Renny Gan Unavailable [phone] Mikael, Judi Joan Primary Care Unavailable Gladis, Conner M Admitting Unavailable Gladis, Conner M Attending Unavailable Mikael, [facility] Primary Care Unavailable Asaad, Imad Admitting Unavailable Asaleo, Imad Attending Unavailable Renny Gan Consulting Unavailabl e Mikael, [facility] Primary Care Unavailable Deann Montalvo Attending Unavailable Alahmad, Alaa Admitting Unavailable Mikael, [facility] Primary Care Unavailable GladisErnaed M Admitting Unavailable GladisErna salinased M Attending Unavailable Mikael, [facility] Primary Care Unavailable Pete Thakkar Admitting Unavailable Pete Thakkar Attending Unavailable Samuel Estrella Attending Unavailable Monique Marquez Attending Unavailable Anai REAGAN Attending Unavailable Zabrina Patton Attending Unavailable MARQUES BRADLEY Referring Unavailable PAVLOCK, [facility] Primary Care Unavailable [facility], [facility] Primary Care Unavailable KROHMARQUES Referring Unavailable KROH, MARQUES Patel Attending Unavailable IMER CHERRY Referring Unavailable [facility] Primary Care Unavailable [facility], [facility] Primary Care Unavailable KROH, MARQUSE D Referring Unavailable KAITLYN TORRES Attending Unavailable KROH, MARQUES Patel Referring Unavailable [facility], [facility] Primary Care Unavailable MELISSA MONTALVO Attending Unavailable KROH, MARQUES Patel Referring Unavailable [facility], [facility] Primary Care Unavailable SLY HEART Attending Unavailable KROHMARQUES Referring Unavailable [facility] Primary Care Unavailable BRENNEN SHAW Attending Unavailable Allergies Allergy Classification Reported Allergen(s) Allergy Type Date of Onset Reaction(s) Facility (5 sources) cyclobenzaprine; Translations: [CYCLOBENZAPRINE] Drug Allergy 04-28-20 Swelling of Lip/Tongue/Thr oat [facility] Repository (6 sources) Penicillins Drug allergy (disorder) 09-02-20 15 Rash [facility] Repository (20 sources) cyclobenzaprine; Translations: [cyclobenzaprine] Drug Allergy 04-28-20 18 Pharyngeal swelling (finding), Swelling [facility] (20 sources) Penicillin; Translations: [penicillin] Drug Allergy 04-28-20 18 Swelling (morphologic abnormality), Swelling [facility] (8 sources) penicillAMINE Drug Allergy rash [facility] Other (2 sources) cyclobenzaprine Drug Allergy 03-23-20 16 [facility] Repository (1 source) traMADol Drug Allergy [facility] Repository (1 source) traMADol Drug Allergy [facility] Repository (1 source) cyclobenzaprine Drug Allergy 03-23-20 23 [facility] Repository (1 source) Penicillins Drug allergy (disorder) 03-23-20 23 [facility] Repository Medications Current Medications Medication Drug Class(es) [...] day(s), # 120 cap(s), Refills(s) 11, Pharmacy: [facility]/pharmacy #[id number], 170, cm, 05/05/21 14:15:00 EDT, Height/Length Dosing, 83.1, kg, 05/05/21 14:15:00 EDT, Weight Dosing Start Date: 05/05/21 Stop Date: 04/30/22 Status: Ordered Start: 09-20-2020 take 2 capsules by m outh four times daily Bentyl 10 mg Cap 20 mg = 2 cap(s), Oral, QID, # 20 cap(s), Refills(s) 0, Pharmacy: [facility]/pharmacy #[id number], 170, cm, 09/20/20 16:03:00 EST, [...] day(s), # 90 tab(s), Refills(s) 0, Pharmacy: [facility]/pharmacy #[id number], 170, cm, 01/28/22 13:40:00 EDT, [...] pain, # 20 tab(s), Refills(s) 0, Pharmacy: [facility]/pharmacy #[id number], 170, cm, 02/19/23 0:56:00 EDT, [...] day(s), # 90 cap(s), Refills(s) 1, Pharmacy: [facility]/pharmacy #[id number], 170, cm, 04/14/22 14:53:00 EDT, [...] Daily, # 90 cap(s), Refills(s) 3, Pharmacy: [facility]/pharmacy #[id number], 170, cm, 01/11/22 9:17:00 EDT, Height/Length Dosing, 83, kg, 01/11/22 9:17:00 EDT, Weight Dosing Start Date: 01/11/22 Status: Ordered omeprazole 40 mg Cap-DR (1 source) Start: 2 End: 2 take 1 capsule by mouth once daily omeprazole 40 mg Cap-DR 40 mg = 1 cap(s), Oral, Daily, X 90 day(s), # 90 cap(s), Refills(s) 0, Pharmacy: [facility]/pharmacy #[id number], 170, cm, 01/28/22 13:40:00 EDT, [...] by mouth twice daily. polyethylene glycol 3350 20818 mg powder for oral solution (1 source) [...] Nausea/Vomiting, # 12 tab(s), Refills(s) 0, Pharmacy: [facility]/pharmacy #[id number], 170, cm, 09/20/20 16:03:00 EST, Height/Length Dosing, 87.5, kg, 09/20/20 16:03:00 EST, Weight Dosing Start Date: 09/20/20 Status: Ordered Completed/Discontinued Medications Medication Drug Class(es) Dates Sig (Normalized) Sig (Original) acetaminophen 325 mg / HYDROcodone bitartrate 5 mg oral tablet (6 sources) Opioid Agonist Start: 06-21-2019 End: 02-15-2023 take 1 tablet by mouth every six hours Hydrocodone-Acetami nophen (Sacul) 5-325 mg Tablet Discontinued 1 TAB PO Q6H June 21, 2019 12:00am February 15, 2023 9:46am Start: 11-12-2018 End: 01-30-2019 take 1 tablet by mouth every four to six hours Hydrocodone-Acetaminophen (Sacul) 5-325 mg tablet Discontinued 1 TAB PO [...] QID, # 120 tab(s), Refills(s) 0, Pharmacy: [facility]/pharmacy #[id number], 170, cm, 07/22/22 14:33:00 EST, [...] 05-10-2019 Chronic Other aftercare (1 source) Other continuous churn buttermaker (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 Author Type: Anesthesiologist Type: Anesthesia Postprocedure Evaluation Filed: 08/25/2023 5:35 PM Note Text: POST ANESTHESIA EVALUATION NOTE : 1970 Procedure Summary Date: 08/25/23 Room / Location: Gastroenterology Anesthesia Start: 1444 Anesthesia Stop: 155 Procedure: EGD - THERAPEUTIC, EUS, OR TUBE INTERVENTIONS Diagnosis: Gastroparesis (OTHER) Scheduled Providers: Marques Bradley MD; Carlota Jeffrey MD; Vanessa Mcmillan APRN.CLERK FUNERAL DETAIL Responsible Provider: Carlota Jeffrey MD Anesthesia Type: [...] August 25, 2023 TIME: 5:35 PM CSN: [id number] [facility] ANES PRE-OPon 08-25-2023 ANES PRE-OP HNO ID: [id number] Author: Carlota Jeffrey MD Service: ? Author [...] and consent discussed: yes. Patient / Responsible Constitution Party agrees to proceed: yes Patient / [...] August 25, 2023 TIME: 11:46 AM CSN: [id number] [facility] HISTORY PHYSICALon HISTORY PHYSICAL HNO ID: [id number] Author: Gavi Bourgeois MD Service: General Surgery [...] DATE: August 25, 2023 TIME: 6:57 AM [facility] NURSING PROGon 08-25-2023 NURSING PROG HNO ID: [id number] Author: Melody Walter, RN Service: Nursing Author [...] None Electronically Signed By: Melody Walter RN [facility] NURSING PROG HNO ID: [id number] Author: Pamela Osuna RN Service: ? Author [...] By: Pamela Navarro RN In Department: GASTROENTEROLOGY [facility] Magda 07-22-2023 [employer] [facility] (Taumat[employer]o Animation) CONSTANTINO CARDOSO ([id number]) 1970 F Date Time Provider Department 07/22/23 [...] Status:Closed by EVELYN BLACK on 07/22/23 [facility] ANES POSTPROC EVALon 023 ANES POSTPROC EVAL HNO ID: [id number] Author: Sly Heart MD Service: ? Author [...] Scheduled Providers: Marques Bradley MD; Amanda Bernard APRN.CLERK FUNERAL DETAIL; Sly Heart MD Responsible Provider: Sly Heart [...] July 14, 2023 TIME: 12:26 PM CSN: [id number] [facility] ANES PRE-OPon 07-14-2023 ANES PRE-OP HNO ID: [id number] Author: Sly Heart MD Service: ? Author Type: Anesthesiologist Type: Anesthesia Preprocedure Evaluation Filed: 07/14/2023 9:19 AM Note Text: ANESTHESIOLOGY DAY OF SURGERY NOTE : 1970 Procedure Information Date/Time: 07/14/23929 Scheduled providers: Marques Bradley MD; Amanda Bernard APRN.CLERK FUNERAL DETAIL; Sly Heart MD Procedure: EGD - THERAPEUTIC, [...] and consent discussed: yes. Patient / Responsible Constitution Party agrees to proceed: yes Patient / [...] Surgery/Procedure. SIGNATURE: Sly Heart MD PATIENT NAME: Constatnino Cardoso DATE: July 14, 2023 TIME: 9:11 AM CSN: [id number] [facility] EGD - THERAPEUTIC, EUS, OR T UBE INTERVENTIONSon 07-14-2023 [facility] HISTORY PHYSICALon HISTORY PHYSICAL HNO ID: [id number] Author: Raúl Quintero MD Service: General Surgery [...] medications for this visit. 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 Mehrdad Heart paged : Patient Constantino Cardoso in post bed 10: Complaining of 10/10 abdominal pain (gas), mild nausea. Any further orders? Thanks! Mari Spaulding RN BSN [facility] NURSING PROG HNO ID: [id number] Author: Mónica Spaulding RN Service: Nursing Author [...] REFERRAL (RECOMMENDATION): None Electronically Signed By: Mónica Spualding RN BSN [facility] NURSING PROG HNO ID: [id number] Author: Candace Jaramillo RN Service: ? Author [...] By: Candace Jaramillo RN In Department: GASTROENTEROLOGY [facility] SURGICAL PATHOLOGYon 023 ADDENDUM 1: [facility] Comment on above: Order Comment: Speci men Type: TISSUE SPECIMENOrdering Facility: [facility] Address: [address] [place] [address] Result Comment: Give n the background of chronic gastritis a Helicobacter pylori immunostain was performed on block A and is negative for Helicobacter pylori organisms. AEB 07/20/2023 Laboratory Developed Test (LDT) Disclaimer: Performance characteristics of immunohistochemical, immunofluorescent and chromogenic in-situ hybridization tests have been determined by the performing laboratory within [facility]???s [facility] [place] ([facility], [facility], [facility], [facility], [facility], [facility], or [facility]) in a manner consistent with CLIA [...] at 9:30 AM Performed By: #### S ####[facility] LABCLIA [id number] [place] [address] [place] CASE REPORT [facility] Comment on above: Order Comment: Speci men Type: TISSUE SPECIMENOrdering Facility: [facility] Address: [address] [place] [address] Result Comment: [facility] Pathology Report Case: [id number] Authorizing Provider: Marques Bradley MD Collected: 07/14/2023 10:42 AM Ordering Location: Gastroenterology Received: 07/14/2023 07:34 PM Pathologist: Marilou Zacarias MD Specimen: STOMACH BIOPSY, R/O H.Pylori Performed By: #### S ####[facility] LABCLIA [id number] [address] OF [facility] DIAGNOSIS COMMENT Immunohistochemical stain for Helicobacter pylori is pending and will be reported as an addendum. [facility] Comment on above: Order Comment: Speci men Type: TISSUE SPECIMENOrdering Facility: [facility] Address: [address] [place] [address] Performed By: #### S ####[facility] LABIA [id number] [address] OF [facility] FINAL DIAGNOSIS [facility] Comment on above: Order Comment: Speci men Type: TISSUE SPECIMENOrdering Facility: [facility] Address: [address] [place] [address] Result Comment: Velma scott, biopsy: - Chronic inactive gastritis. See comment. AEB/dkclementina 07/18/2023 Performed By: #### S ####[facility] LABIA [id number] [address] [place] FINAL PERFORMING LAB [facility] Comment on above: Order Comment: Speci men Type: TISSUE SPECIMENOrdering Facility: [facility] Address: [address] [place] [address] Result Comment: Diag nostic interpretation performed at [facility], [address] [address] CLIA# [id number] Ornamental Plaster Sticker: Maurisio Ritchie M.D. Performed By: #### S ####[facility] LABIA [id number] [address] [place] GROSS DESCRIPTION Normal [facility] Comment on above: Order Comment: Speci men Type: TISSUE SPECIMENOrdering Facility: [facility] Address: [address] [place] [address] Result Comment: A. S TOMACH BIOPSY Received in formalin are two pieces of hager, soft tissue aggregating to 0.5 x 0.2 x 0.2 cm. Totally submitted in one cassette. Two Gross examination performed at [facility], [facility] [address] July 14, 2023 11:10 PM Performed By: #### S ####[facility] [id number] [address] OF [place] Lipase Levelon 06-06-2023 Lipase [Catalytic activity/Vol] 33 U/L Normal 13-58 [facility] Comment on above: Performed By: #### 2 [id number] ####[facility] [id number] [place] [address] [facility] 05-27-2023 CNPN Telephone (GENBMI) CONSTANTINO CARDOSO ([id number]) 1970 F Date Time Provider Department 05/27/23 [...] Status:Closed by EVELYN BLACK on 05/27/23 [facility] GASTRIC EMPTYING SOLIDon 05-26-2023 [place] GASTRIC EMPTYING SOLID * * *Final Report* * * DATE OF EXAM: May 26 2023 11:11AM [facility] 0017 - [place] GASTRIC EMPTYING SOLID / [...] RATE OF GASTRIC EMPTYING OF SOLID MEAL. Manager Payment: PSCB Transcribe Date/Time: May 26 2023 11:18A Dictated by : SILVANO WELSH MD This examination was interpreted and the report reviewed and electronically signed by: SILVANO WELSH MD on May 26 2023 11:18AM EST [id number] [facility] CNNURSEon 05-25-2023 [facility] (GASTMN) CONSTANTINO CARDOSO ([id number]) 1970 F Date Time Provider Department 05/25/23 8:30 AM NURSE GI LAB 2 GASTMN During your visit today, we recorded the following information about you: Pedro Gonzalez LPN 05/25/2023 4:15 PM Signed Name: Constantino Cardoso [facility]#: [id number] Date: 05/25/2023 ESOPHAGEAL MANOMETRY TEST Indication: Nausea [...] .Pedro Gonzalez LPN Referring Provider: MARQUES BRADLEY [[id number]] Allergies As of Date: 05/25/2023 Noted Allergy Reaction FLEXERIL (CYCLOBENZAPRINE) 04/28/2018 7 - Swelling PENICILLIN 04/28/2018 7 - Swelling Date Reviewed: 05/06/2023 Reviewed by: Judy Michaels MA - Fully Assessed Reason for Visit: Procedure [88] Cmt: Manometry Esophageal Visit Diagnosis:Nausea [R11.0] Order(s):MANOMETRY ESOPHAGEAL [41309POC] Order #: [id number] Prescriptions as of 05/25/2023 - dicyclomine (BENTYL) [...] Encounter Status:Closed by PEDRO GONZALEZ on 05/25/23 [facility] Magda 05-16-2023 CNPN Telephone (GENBMI) CONSTANTINO CARDOSO ([id number]) 1970 F Date Time Provider Department 05/16/23 [...] Encounter Status:Closed by EVELYN BLACK on 05/16/23 [facility] CNOVon 05-06-2023 CNOV Office Visit (GENBMI ) CONSTANTINO CARDOSO ([id number]) 1970 F Date Time Provider Department 9/1/23 8:50 AM MARQUES BRADLEY [facility] During your visit today, we recorded [...] for internal providers or letter via the [place] [employer] for external providers. Chief Complaint: [...] Time: 8:15 AM Referring Provider: IMER CHERRY [[id number]] Allergies As of Date: 05/06/2023 Noted Allergy Reaction (more content not included)... [facility] CNPNon 05-02-2023 CNPN Telephone (GENBMI) CONSTANTINO CARDOSO ([id number]) 1970 F Date Time Provider Department 05/02/23 EVELYN BLACK GENBMI During your visit today, we recorded the following information about you: Evelyn Black, RN 05/04/2023 1:55 PM Addendum BMI SPECIALTY CARE COORDINATION TELEPHONE ENCOUNTER Chief complaint AND duration dysphagia. Type of procedure: hernia repair hiatal with Dr. MORTENSEN in [place] February of 2019. Sending OP notes Nursing assessment (subjective/objective) . pain in chest area and getting worse, hard to breathe c/o nausea and oral intolerance, using miralax for BM Went to [facility] March 2023 who told her she needed a stent in her heart..but her c/o were difficulty swallowing and sent pt home and referred her to [facility] and was admitted for almost a [...] HHR a year later @ OSH in [place] Recommendation: appt after records obtained, encouraged small [...] Encounter Status:Closed by EVELYN BLACK on 05/02/23 [facility] Magda 04-26-2023 CNPN Telephone (GENBMI) CONSTANTINO CARDOSO ([id number]) 1970 F Date Time Provider Department 04/26/23 [...] Encounter Status:Closed by EVELYN BLACK on 04/26/23 [facility] 04-18-2023 CNPN Telephone (GENBMI) CONSTANTINO CARDOSO ([id number]) 1970 F Date Time Provider Department 04/18/23 [...] Ma - Fully Assessed Reason for Visit: Rn Social Services - Other [8862] Prescriptions as of 04/18/2023 - ciprofloxacin HCl [...] Encounter Status:Closed by EVELYN BLACK on 04/18/23 [facility] 04-07-2023 CNPN Telephone (GASTSP) WALKERCONSTANTINO ([id number]) 1970 F Date Time Provider Department 04/07/23 [...] Status:Closed by YANCY LOPEZ on 04/07/23 [facility] [place] gastric emptying studyon 03-31-2023 [place] gastric emptying study [place] [address] Nuclear Medicine Report Signed Patient: WalkerConstantino MR#: [id number] : 1970 Acct:[id number] Age/Sex: 52 / F ADM Date: 03/26/23 Loc: Room: [address] [place] [address] Type: ADM IN Attending Dr: Deann Montalvo [...] Samuel Stone M.D.03/31/2023 10:03 AM Dictation Location: [place] [address] Transcribed By: [facility] 03/31/23 1003 Dictated By: Samuel Stone DO 03/31/23 0956 Signed By: 03/31/23 1003 [facility] Comprehensive Metabolic Pane miranda 03-29-2023 Albumin [Mass/Vol] 3.8 g/dL Normal 3.5-5.7 [facility] Comment on above: Performed By: #### C DIANN DOUGLAS #### [address] Albumin/Globulin [Mass ratio] 1.4 {ratio} [facility] Comment on above: Performed By: #### C STELLA, CMP #### [facility] [address] [id number] [facility] ALP [Catalytic activity/Vol] 102 U/L Normal 34-104 [facility] Comment on above: Performed By: #### C STELLA CMP #### [place] [id number] [facility] ALT [Catalytic activity/Vol] 10 U/L Normal 7-52 [facility] Comment on above: Performed By: #### C STELLA, CMP #### [place] [address] [place] Anion gap [Moles/Vol] 10.4 mmol/L Normal 6.0-15.0 [facility] Comment on above: Performed By: #### C STELLA, CMP #### [facility] [address] AST [Catalytic activity/Vol] 14 U/L Normal 13-39 [facility] Comment on above: Performed By: #### C STELLA, CMP #### [facility] [address] Bilirubin [Mass/Vol] 0.5 mg/dL Normal 0.3-1.[address] [facility] Comment on above: Performed By: #### C STELLA, CMP #### [facility] [address] Calcium [Mass/Vol] 9.0 mg/dL Normal 8.6-10.3 [facility] Comment on above: Performed By: #### C STELLA, CMP #### [facility] [address] Chloride [Moles/Vol] 103 mmol/L Normal 98-[address] [facility] Comment on above: Performed By: #### C STELLA, CMP #### [facility] [address] [place] [address] [place] CO2 [Moles/Vol] 28.4 mmol/L Normal 21.0-31.0 [facility] Comment on above: Performed By: #### C STELLA, CMP #### [facility] [address] [place] [address] [place] Creatinine [Mass/Vol] 0.67 mg/dL Normal 0.60-1.20 [facility] Comment on above: Performed By: #### C STELLA, CMP #### [facility] [address] [place] [address] [place] Creatinine Clr Calc Pharmacy 106.18 Normal [facility] Comment on above: Result Comment: PERF ORMED BY: [place] [address] PATHOLOGIST FISH HATCHERY MAN ROOSEVELT KEYES M.D. Performed By: #### C STELLA, CMP #### [facility] [address] [place] [address] [place] GFR/1.73 sq M.predicted MDRD (S/P/Bld) [Vol rate/Area] mL/min/{1.73_m2} [facility] Comment on above: Performed By: #### C STELLA, CMP #### [facility] [address] [place] [address] [place] Globulin (S) [Mass/Vol] 2.7 g/dL [facility] Comment on above: Performed By: #### C STELLA, CMP #### [facility] [address] Glucose [Mass/Vol] 96 mg/dL Normal 70-100 [facility] Comment on above: Result Comment: [facility] Glucose Reference Range is dependent on time and content of last meal. Glucose of more than 200 mg/dL in a nonstressed, ambulatory subject supports the diagnosis of Diabetes Mellitus. ADA recommended reference range Performed By: #### C STELLA, CMP #### [facility] [address] [place] [address] [place] Potassium [Moles/Vol] 3.8 mmol/L Normal 3.5-5.1 [facility] Comment on above: Performed By: #### C STELLA, CMP #### [place] [address] [place] Protein [Mass/Vol] 6.5 g/dL Normal 6.4-8.9 [facility] Comment on above: Performed By: #### C STELLA, CMP #### [facility] [address] [place] [address] [place] Sodium [Moles/Vol] 138 mmol/L Normal 136-145 [facility] Comment on above: Performed By: #### C STELLA, CMP #### [facility] [address] [place] [address] [place] Urea nitrogen [Mass/Vol] 8 mg/dL Normal 7-25 [facility] Comment on above: Performed By: #### C STELLA, CMP #### [facility] [address] [place] [address] [facility] [place] esophagus ugion 3 [place] esophagus ugi [facility] Main [place] [address] [place] [address] Fluoroscopy Report Signed Patient: Constantino Cardoso MR#: [id number] : 1970 Acct:[id number] Age/Sex: 52 / F ADM Date: 03/26/23 Loc: Room: [address] [place] [address] Type: ADM IN Attending Dr: Deann Montalvo MD Copies to: MD Deann Blue MD Ordering Provider: Renny Gan MD Date of Service: 03/29/23 FL/FL esophagus ugi: NAUSEA DOUBLE CONTRAST UPPER GI SERIES CLINICAL HISTORY: Nausea vomiting. History of Ramiro fundoplication. COMPARISON: None TECHNIQUE: Double contrast upper GI series was performed. Cumulative Air Kerma in mGy: 305.03 mGy FINDINGS: Wrapper Sizer image demonstrates no acute findings. The esophagus [...] Bateman Jr., D.ONeo03/29/2023 1:23 PM Dictation Location: [place] [address] Transcribed By: [facility] 03/29/23 1323 Dictated By: Tiburcio Bateman Jr, DO 03/29/23 1317 Signed By: 03/29/23 1323 Normal [facility] Hemogram CBC Without Diffon 03-29-2023 Erythrocyte distribution width (RBC) [Ratio] 13.4 % Normal 11.9-15.3 [facility] Comment on above: Performed By: #### C BCNO, CMP #### [address] Hematocrit (Bld) [Volume fraction] 35.4 % Normal 34.0-46.4 [facility] Comment on above: Performed By: #### C BCNO, CMP #### [facility] [address] Hemoglobin (Bld) [Mass/Vol] 12.0 g/dL Normal 11.8-15.4 [facility] Comment on above: Performed By: #### C BCNO, CMP #### [address] MCH (RBC) [Entitic mass] 29.2 pg Normal 24.7-34.3 [facility] Comment on above: Performed By: #### C BCNO, CMP #### [address] MCV (RBC) [Entitic vol] 86.0 fL Normal 80-100 [facility] Comment on above: Performed By: #### C BCNO, CMP #### [address] Mean Corpuscular HGB Conc 33.9 g/dL Normal 32.0-35.0 [facility] Comment on above: Performed By: #### C BCNO, CMP #### [address] Platelet mean volume (Bld) [Entitic vol] 7.6 fL Normal 6.3-10.7 [facility] Comment on above: Result Comment: PERF ORMED BY: [place] [address] PATHOLOGIST [employer] ROOSEVELT KEYES M.D. Performed By: #### C BCNO, CMP #### [address] Platelets (Bld) [#/Vol] 288 10*3/uL Normal 150-450 [facility] Comment on above: Performed By: #### C BCNO, CMP #### [facility] [address] [place] [id number] [facility] RBC (Bld) [#/Vol] 4.11 10*6/uL Normal 3.60-5.00 [facility] Comment on above: Performed By: #### C BCNO, CMP #### [facility] [address] [place] [id number] [facility] WBC (Bld) [#/Vol] 6.5 10*3/uL Normal 3.8-11.6 [facility] Comment on above: Performed By: #### C BCNO, CMP #### [facility] [address] XR abdomen min 2Von 03-28-20 XR abdomen min 2V [facility] Main [place] [address] [place] [address] XRay Report Signed Patient: Constantino Cardoso MR#: [id number] : 1970 Acct:[id number] Age/Sex: 52 / F ADM Date: 03/26/23 Loc: Room: [address] [place] [address] Type: ADM IN Attending Dr: Deann Montalvo [...] Bateman Jr., D.O.03/28/2023 12:24 PM Dictation Location: [place] [address] Transcribed By: [facility] 03/28/23 1224 Dictated By: Tiburcio Bateman Jr, DO 03/28/23 1223 Signed By: 03/28/23 1224 [facility] Complete Blood Count Auto Di ffon 03-27-2023 Basophils (Bld) [#/Vol] 0.0 10*3/uL Normal 0.0-0.2 [facility] Comment on above: Result Comment: PERF ORMED BY: [place] [address] PATHOLOGIST [employer] ROOSEVELT KEYES M.D. Performed By: #### C BC #### [address] Basophils/100 WBC (Bld) 0.5 % Normal . [facility] Comment on above: Performed By: #### C BC #### [address] Eosinophils (Bld) [#/Vol] 0.2 10*3/uL Normal 0.0-0.45 [facility] Comment on above: Performed By: #### C BC #### [address] Eosinophils/100 WBC (Bld) 4.7 % Normal . [facility] Comment on above: Performed By: #### C BC #### [address] Erythrocyte distribution width (RBC) [Ratio] 13.6 % Normal 11.9-15.3 [facility] Comment on above: Performed By: #### C BC #### [address] Hematocrit (Bld) [Volume fraction] 34.1 % Normal 34.0-46.4 [facility] Comment on above: Performed By: #### C BC #### [place] [address] [place] Hemoglobin (Bld) [Mass/Vol] 11.4 g/dL Low 11.8-15.4 [facility] Comment on above: Performed By: #### C BC #### [address] Lymphocytes (Bld) [#/Vol] 1.3 10*3/uL Normal 1.00-4.8 [facility] Comment on above: Performed By: #### C BC #### [address] Lymphocytes/100 WBC (Bld) 32.8 % Normal . [facility] Comment on above: Performed By: #### C BC #### [address] MCH (RBC) [Entitic mass] 28.9 pg Normal 24.7-34.3 [facility] Comment on above: Performed By: #### C BC #### [address] MCV (RBC) [Entitic vol] 86.0 fL Normal 80-100 [facility] Comment on above: Performed By: #### C BC #### [address] Mean Corpuscular HGB Conc 33.6 g/dL Normal 32.0-35.0 [facility] Comment on above: Performed By: #### C BC #### [address] Monocytes (Bld) [#/Vol] 0.3 10*3/uL Normal 0.0-0.8 [facility] Comment on above: Performed By: #### C BC #### [address] Monocytes/100 WBC (Bld) 7.7 % Normal . [facility] Comment on above: Performed By: #### C BC #### [address] Neutrophils (Bld) [#/Vol] 2.1 10*3/uL Normal 1.8-7.7 [facility] Comment on above: Performed By: #### C BC #### [address] Neutrophils/100 WBC (Bld) 54.3 % Normal . [facility] Comment on above: Performed By: #### C BC #### [address] NRBC% 0.1 /100{WBC} Normal 0-0.5 [facility] Comment on above: Performed By: #### C BC #### [address] Platelet mean volume (Bld) [Entitic vol] 7.8 fL Normal 6.3-10.7 [facility] Comment on above: Performed By: #### C BC #### [address] Platelets (Bld) [#/Vol] 291 10*3/uL Normal 150-450 [facility] Comment on above: Performed By: #### C BC #### [address] RBC (Bld) [#/Vol] 3.97 10*6/uL Normal 3.60-5.00 [facility] Comment on above: Performed By: #### C BC #### [address] WBC (Bld) [#/Vol] 3.9 10*3/uL Normal 3.8-11.6 [facility] Comment on above: Performed By: #### C BC #### [address] Comprehensive Metabolic Pane miranda 03-27-2023 Albumin [Mass/Vol] 3.5 g/dL Normal 3.5-5.7 [facility] Comment on above: Performed By: #### H EPATIC, CBC, BMP, LIPASE #### [address] Albumin/Globulin [Mass ratio] 1.4 {ratio} Normal [facility] Comment on above: Performed By: #### H EPATIC, CBC, BMP, LIPASE #### [address] ALP [Catalytic activity/Vol] 91 U/L Normal 34-104 [facility] Comment on above: Performed By: #### H EPATIC, CBC, BMP, LIPASE #### [address] [place] [address] [place] ALT [Catalytic activity/Vol] 10 U/L Normal 7-52 [facility] Comment on above: Performed By: #### H EPATIC, CBC, BMP, LIPASE #### [address] Anion gap [Moles/Vol] 6.9 mmol/L Normal 6.0-15.0 [facility] Comment on above: Performed By: #### H EPATIC, CBC, BMP, LIPASE #### [address] AST [Catalytic activity/Vol] 13 U/L Normal 13-39 [facility] Comment on above: Performed By: #### H EPATIC, CBC, BMP, LIPASE #### [address] Bilirubin [Mass/Vol] 0.5 mg/dL Normal 0.3-1.[address] [facility] Comment on above: Performed By: #### H EPATIC, CBC, BMP, LIPASE #### [address] Calcium [Mass/Vol] 8.6 mg/dL Normal 8.6-10.3 [facility] Comment on above: Performed By: #### H EPATIC, CBC, BMP, LIPASE #### [address] Chloride [Moles/Vol] 109 mmol/L High 98-[address] [facility] Comment on above: Performed By: #### H EPATIC, CBC, BMP, LIPASE #### [address] CO2 [Moles/Vol] 28.9 mmol/L Normal 21.0-31.0 [facility] Comment on above: Performed By: #### H EPATIC, CBC, BMP, LIPASE #### [address] Creatinine [Mass/Vol] 0.72 mg/dL Normal 0.60-1.20 [facility] Comment on above: Performed By: #### H EPATIC, CBC, BMP, LIPASE #### [facility] [address] Creatinine Clr Calc Pharmacy 97.02 [facility] Comment on above: Performed By: #### H EPATIC, CBC, BMP, LIPASE #### [facility] [address] [place] [address] [place] GFR/1.73 sq M.predicted MDRD (S/P/Bld) [Vol rate/Area] mL/min/{1.73_m2} [facility] Comment on above: Performed By: #### H EPATIC, CBC, BMP, LIPASE #### [address] Globulin (S) [Mass/Vol] 2.5 g/dL [facility] Comment on above: Performed By: #### H EPATIC, CBC, BMP, LIPASE #### [address] Glucose [Mass/Vol] 104 mg/dL High 70-100 [facility] Comment on above: Result Comment: [facility] Glucose Reference Range is dependent on time and content of last meal. Glucose of more than 200 mg/dL in a nonstressed, ambulatory subject supports the diagnosis of Diabetes Mellitus. ADA recommended reference range Performed By: #### H EPATIC, CBC, BMP, LIPASE #### [address] Potassium [Moles/Vol] 3.8 mmol/L Normal 3.5-5.1 [facility] Comment on above: Performed By: #### H EPATIC, CBC, BMP, LIPASE #### [address] Protein [Mass/Vol] 6.0 g/dL Low 6.4-8.9 [facility] Comment on above: Performed By: #### H EPATIC, CBC, BMP, LIPASE #### [address] Sodium [Moles/Vol] 141 mmol/L Normal 136-145 [facility] Comment on above: Performed By: #### H EPATIC, CBC, BMP, LIPASE #### [facility] [address] Urea nitrogen [Mass/Vol] 10 mg/dL Normal 7-25 [facility] Comment on above: Performed By: #### H EPATIC, CBC, BMP, LIPASE #### [facility] [address] [place] [id number] [facility] Lipaseon 03-27-2023 Lipase [Catalytic activity/Vol] 14.0 U/L Normal 11.0-82.0 [facility] Comment on above: Result Comment: PERF ORMED BY: [place] [address] PATHOLOGIST [employer] ROOSEVELT KEYES M.D. Performed By: #### H EPATIC, CBC, BMP, LIPASE #### [address] Magnesiumon 03-27-2023 Magnesium [Mass/Vol] 1.8 mg/dL Low 1.9-2.[address] [facility] Comment on above: Performed By: #### H EPATIC, CBC, BMP, LIPASE #### [address] angio abdomen pelvison CT angio abdomen pelvis [facility] Main [place] [address] [place] [address] CT Scan Report Signed Patient: Constantino Cardoso MR#: [id number] : 1970 Acct:[id number] Age/Sex: 52 / F ADM Date: 03/26/23 Loc: Room: [address] [place] [address] Type: ADM IN Attending Dr: Raf Steward [...] Nora Benites M.D.03/26/2023 9:41 AM Dictation Location: [place] [address] Transcribed By: [facility] 03/26/23 0941 Dictated By: Nora Benites II, MD 03/26/23 0935 Signed By: 03/26/23 09[address] [facility] [address] angio [place]ston 03-26-2023 CT angio chest [facility] Main [place] [address] [place] [address] CT Scan Report Signed Patient: Constantino Cardoso MR#: [id number] : 1970 Acct:[id number] Age/Sex: 52 / F ADM Date: 03/26/23 Loc: Room: [address] [place] [address] Type: ADM IN Attending Dr: Raf Steward [...] Nora Benites M.D.03/26/2023 9:34 AM Dictation Location: [place] [address] Transcribed By: [facility] 03/26/2334 Dictated By: Nora Benites II, MD 03/26/2330 Signed By: 03/26/2334 [facility] Comprehensive Metabolic Pane miranda 03-26-2023 Albumin [Mass/Vol] 3.8 g/dL Normal 3.5-5.7 [facility] Comment on above: Performed By: #### P ORS #### [address] Albumin/Globulin [Mass ratio] 1.6 {ratio} Normal [facility] Comment on above: Performed By: #### P ORS #### [facility] [address] ALP [Catalytic activity/Vol] 105 U/L High 34-104 [facility] Comment on above: Performed By: #### P ORS #### [facility] [address] ALT [Catalytic activity/Vol] 11 U/L Normal 7-52 [facility] Comment on above: Performed By: #### P ORS #### [facility] [address] Anion gap [Moles/Vol] 9.7 mmol/L Normal 6.0-15.0 [facility] Comment on above: Performed By: #### P ORS #### [facility] [address] [place] [address] AST [Catalytic activity/Vol] 14 U/L Normal 13-39 [facility] Comment on above: Performed By: #### P ORS #### [facility] [address] [place] [address] Bilirubin [Mass/Vol] 0.4 mg/dL Normal 0.3-1.[address] [facility] Comment on above: Performed By: #### P ORS #### [facility] [address] [place] [address] Calcium [Mass/Vol] 8.6 mg/dL Normal 8.6-10.3 [facility] Comment on above: Performed By: #### P ORS #### [facility] [address] [place] [address] Chloride [Moles/Vol] 107 mmol/L Normal 98-[address] [facility] Comment on above: Performed By: #### P ORS #### [address] CO2 [Moles/Vol] 25.3 mmol/L Normal 21.0-31.0 [facility] Comment on above: Performed By: #### P ORS #### [place] [id number] [place] Creatinine [Mass/Vol] 0.76 mg/dL Normal 0.60-1.20 [facility] Comment on above: Performed By: #### P ORS #### [address] Creatinine Clr Calc Pharmacy 92.46 [facility] Comment on above: Performed By: #### P ORS #### [address] GFR/1.73 sq M.predicted MDRD (S/P/Bld) [Vol rate/Area] mL/min/{1.73_m2} [facility] Comment on above: Performed By: #### P ORS #### [address] Globulin (S) [Mass/Vol] 2.4 g/dL [facility] Comment on above: Performed By: #### P ORS #### [address] Glucose [Mass/Vol] 122 mg/dL High 70-100 [facility] Comment on above: Result Comment: [facility] Glucose Reference Range is dependent on time and content of last meal. Glucose of more than 200 mg/dL in a nonstressed, ambulatory subject supports the diagnosis of Diabetes Mellitus. ADA recommended reference range Performed By: #### P ORS #### [address] Potassium [Moles/Vol] 4.0 mmol/L Normal 3.5-5.1 [facility] Comment on above: Performed By: #### P ORS #### [address] Protein [Mass/Vol] 6.2 g/dL Low 6.4-8.9 [facility] Comment on above: Performed By: #### P ORS #### [address] Sodium [Moles/Vol] 138 mmol/L Normal 136-145 [facility] Comment on above: Performed By: #### P ORS #### [address] Urea nitrogen [Mass/Vol] 12 mg/dL Normal 7- [facility] Comment on above: Performed By: #### P ORS #### [place] [address] [place] Drug Screen,Urineon 03-26-20 23 Amphetamine Screen,Urine Negative Normal Negative [facility] Comment on above: Performed By: #### H EPATIC, CBC, BMP, LIPASE #### [address] Barbiturate Screen,Urine Negative Normal Negative [facility] Comment on above: Performed By: #### H EPATIC, CBC, BMP, LIPASE #### [address] Benzodiazepines Screen,Urine Negative Normal Negative [facility] Comment on above: Performed By: #### H EPATIC, CBC, BMP, LIPASE #### [address] Cannabinoid Screen,Urine Negative Normal Negative [facility] Comment on above: Result Comment: Thes e are unconfirmed results and should not be used for legal purposes. Drug Cut-Off Concentration: AMPH 1000 ng/mL HAWA 200 ng/mL ELSA 200 ng/mL COCM 300 ng/mL OP 300 ng/mL PCP 25 ng/mL THC 20 ng/mL PERFORMED BY: [place] [address] PATHOLOGIST [employer] ROOSEVELT KEYES M.D. Performed By: #### H EPATIC, CBC, BMP, LIPASE #### [address] Cocaine Screen,Urine Negative Normal Negative [facility] Comment on above: Performed By: #### H EPATIC, CBC, BMP, LIPASE #### [address] Opiate Screen,Urine Positive High Negative [facility] Comment on above: Performed By: #### H EPATIC, CBC, BMP, LIPASE #### [address] [place] [address] [facility] Phencyclidine Screen,Urine Negative Normal Negative [facility] Comment on above: Performed By: #### H EPATIC, CBC, BMP, LIPASE #### [facility] [address] [place] [id number] [facility] echo transthoracicon [facility] echo transthoracic [facility] Main [place] [address] [place] [address] Echocardiogram Signed Patient: Constantino Cardoso MR#: [id number] : 1970 Acct:[id number] Age/Sex: 52 / F ADM Date: 03/26/23 Loc: Room: [address] [place] [address] Type: ADM IN Attending Dr: Raf Steward MD Ordering Provider: Ron Fair MD Date of Service: 03/26/23 [facility] echo transthoracic: chest pain Copies to: MD Holly Lieberman MD, [facility] BSA: 1.9 m2 BP: 155/86 mmHg HR: [...] 03/26/23 0909 Signed By: Holly Castro MD, [facility] 03/26/23 1148 Normal [facility] Hepatic Panelon 03-26-2023 Bilirubin,Indirect 0.3 mg/dL Normal [facility] Comment on above: Performed By: #### P ORS #### [facility] [address] Bilirubin.indirect [Mass/Vol] 0.10 mg/dL Normal 0.03-0.18 [facility] Comment on above: Performed By: #### P ORS #### [address] Lactic Acidon 03-26-2023 Lactate [Moles/Vol] 0.5 mmol/L Normal 0.5-2.2 [facility] Comment on above: Result Comment: PERF ORMED BY: [place] [address] PATHOLOGIST [employer] ROOSEVELT KEYES M.D. Performed By: #### L ACTIC, HEPATIC, LIPASE, CMP, HS TROP, MG #### [address] Lipaseon 03-26-2023 Lipase [Catalytic activity/Vol] 8.0 U/L Low 11.0-82.0 [facility] Comment on above: Result Comment: PERF ORMED BY: [place] [address] PATHOLOGIST [employer] ROOSEVELT KEYES M.D. Performed By: #### P ORS #### [facility] [address] [place] [address] Magnesiumon 03-26-2023 Magnesium [Mass/Vol] 1.8 mg/dL Low 1.9-2.[address] [facility] Comment on above: Performed By: #### P ORS #### [place] [address] [place] Porphyrins,Stoolon 3 Porphyrins,Stool Normal [facility] Comment on above: Result Comment: See report. Scanned copy available in EMR. PERFORMED BY: [place] [address] PATHOLOGIST [employer] ROOSEVELT KEYES M.D. Performed By: #### P ORS #### [address] Troponin I High Sensitivityo n 03-26-2023 Troponin I High Sensitivity 13.8 pg/mL Normal 0.0-15.0 [facility] Comment on above: Result Comment: PERF ORMED BY: [place] [address] PATHOLOGIST [employer] ROOSEVELT KEYES M.D. Performed By: #### H EPATIC, CBC, BMP, LIPASE #### [address] Troponin I High Sensitivity 14.1 pg/mL Normal 0.0-15.0 [facility] Comment on above: Result Comment: PERF ORMED BY: [place] [address] PATHOLOGIST [employer] ROOSEVELT KEYES M.D. Performed By: #### P ORS #### [address] Alanine aminotransferase [En zymatic activity/volume] in Serum or PlasmaOrdered By: Pete Thakkar on 03-23-2023 ALT [Catalytic activity/Vol] 11 U/L 7-52 [facility] Albumin [Mass/volume] in Ser um or Plasma by Bromocresol green (BCG) dye binding methoOrdered By: Pete Thakkar on 03-23-2023 Albumin BCG dye [Mass/Vol] 4.1 g/dL 3.5-5.7 [facility] Alkaline phosphatase [Enzyma tic activity/volume] in Serum or PlasmaOrdered By: Pete Thakkar on 03-23-2023 ALP [Catalytic activity/Vol] 115 U/L 34-104 [facility] Aspartate aminotransferase [ Enzymatic activity/volume] in Serum or PlasmaOrdered By: Pete Thakkar on 03-23-2023 AST [Catalytic activity/Vol] 15 U/L 13-39 [facility] Automated erythrocytes count in urine sediment (number/area)Ordered By: Pete Thakkar on 03-23-2023 RBC Auto (Urine sed) [#/Area] 0-1 [HPF] 0-4 [facility] Automated leukocytes count i n urine sediment (number/area)Ordered By: Pete Thakkar on 03-23-2023 WBC Auto (Urine sed) [#/Area] 0-1 [HPF] 0-4 [facility] Basic Metabolic Panelon 03-05 Anion gap [Moles/Vol] 10.1 mmol/L Normal 6.0-15.0 [facility] Comment on above: Performed By: #### H EPATIC, CBC, BMP, LIPASE #### [facility] [address] [place] [address] [place] Calcium [Mass/Vol] 9.0 mg/dL Normal 8.6-10.3 [facility] Comment on above: Performed By: #### H EPATIC, CBC, BMP, LIPASE #### [facility] [address] [place] [address] [place] Chloride [Moles/Vol] 111 mmol/L High 98-[address] [facility] Comment on above: Performed By: #### H EPATIC, CBC, BMP, LIPASE #### [facility] [address] [place] [id number] [place] CO2 [Moles/Vol] 24.5 mmol/L Normal 21.0-31.0 [facility] Comment on above: Performed By: #### H EPATIC, CBC, BMP, LIPASE #### [facility] [address] [place] [id number] [place] Creatinine [Mass/Vol] 0.72 mg/dL Normal 0.60-1.20 [facility] Comment on above: Performed By: #### H EPATIC, CBC, BMP, LIPASE #### [facility] [address] [place] [address] [place] Creatinine Clr Calc Pharmacy 105.27 [facility] Comment on above: Performed By: #### H EPATIC, CBC, BMP, LIPASE #### [address] GFR/1.73 sq M.predicted MDRD (S/P/Bld) [Vol rate/Area] mL/min/{1.73_m2} Normal [facility] Comment on above: Performed By: #### H EPATIC, CBC, BMP, LIPASE #### [address] Glucose [Mass/Vol] 79 mg/dL Normal 70-100 [facility] Comment on above: Result Comment: [facility] Glucose Reference Range is dependent on time and content of last meal. Glucose of more than 200 mg/dL in a nonstressed, ambulatory subject supports the diagnosis of Diabetes Mellitus. ADA recommended reference range Performed By: #### H EPATIC, CBC, BMP, LIPASE #### [address] Potassium [Moles/Vol] 3.6 mmol/L Normal 3.5-5.1 [facility] Comment on above: Performed By: #### H EPATIC, CBC, BMP, LIPASE #### [address] Sodium [Moles/Vol] 142 mmol/L Normal 136-145 [facility] Comment on above: Performed By: #### H EPATIC, CBC, BMP, LIPASE #### [address] Urea nitrogen [Mass/Vol] 24 mg/dL Normal 7-25 [facility] Comment on above: Performed By: #### H EPATIC, CBC, BMP, LIPASE #### [place] [address] [place] Basophils Auto (Bld) [#/Vol] Ordered By: Pete Thakkar on 03-23-2023 Basophils (Bld) [#/Vol] 0.1 10*3/uL 0.0-0.2 [facility] Basophils/100 WBC Auto (Bld) Ordered By: Pete Thakkar on 03-23-2023 Basophils/100 WBC (Bld) 1.0 % . [facility] Bilirubin Test strip Ql (U)O rdered By: Pete Thakkar on 03-23-2023 Bilirubin Ql (U) Negative Negative [facility] Bilirubin.direct [Mass/volum e] in Serum or PlasmaOrdered By: Pete Thakkar on 03-23-2023 Bilirubin.direct [Mass/Vol] 0.10 mg/dL 0.03-0.18 [facility] Bilirubin.total [Mass/volume ] in Serum or PlasmaOrdered By: Pete Thakkar on 03-23-2023 Bilirubin [Mass/Vol] 0.3 mg/dL 0.3-1.[address] [facility] CT abdomen pelvis w conon CT abdomen pelvis w con [place] [address] CT Scan Report Signed Patient: Constantino Cardoso MR#: [id number] : 1970 Acct:[id number] Age/Sex: 52 / F ADM Date: 03/23/23 Loc: ER Room: Type: [facility] ER Attending Dr: Copies to: Pete [...] Columba Domínguez M.D.03/23/2023 7:47 AM Dictation Location: [place] [address] Transcribed By: [facility] 03/23/2347 Dictated By: Columba Domínguez MD 03/23/23 0742 Signed By: 03/23/2347 Normal [facility] Calcium [Mass/volume] in Ser um or PlasmaOrdered By: Pete Thakkar on 03-23-2023 Calcium [Mass/Vol] 9.0 mg/dL 8.6-10.3 [facility] Carbon dioxide, total [Moles /volume] in Serum or PlasmaOrdered By: Pete Thakkar on 03-23-2023 CO2 [Moles/Vol] 24.5 mmol/L 21.0-31.0 [facility] Chloride [Moles/volume] in S cristine or PlasmaOrdered By: Pete Thakkar on 03-23-2023 Chloride [Moles/Vol] 111 mmol/L 98-[address] [facility] Color Auto (U)Ordered By: Shoaib Thakkar on 03-23-2023 Color (U) Yellow Yellow [facility] Complete Blood Count Auto Di ffon 03-23-2023 Basophils (Bld) [#/Vol] 0.1 10*3/uL Normal 0.0-0.2 [facility] Comment on above: Result Comment: PERF ORMED BY: [facility] [address] [place] [address] PATHOLOGIST [employer] ROOSEVELT KEYES M.D. Performed By: #### H EPATIC, CBC, BMP, LIPASE #### [address] Basophils/100 WBC (Bld) 1.0 % Normal . [facility] Comment on above: Performed By: #### H EPATIC, CBC, BMP, LIPASE #### [address] Eosinophils (Bld) [#/Vol] 0.3 10*3/uL Normal 0.0-0.45 [facility] Comment on above: Performed By: #### H EPATIC, CBC, BMP, LIPASE #### [address] Eosinophils/100 WBC (Bld) 5.0 % Normal . [facility] Comment on above: Performed By: #### H EPATIC, CBC, BMP, LIPASE #### [address] Erythrocyte distribution width (RBC) [Ratio] 13.6 % Normal 11.9-15.3 [facility] Comment on above: Performed By: #### H EPATIC, CBC, BMP, LIPASE #### [address] Hematocrit (Bld) [Volume fraction] 35.7 % Normal 34.0-46.4 [facility] Comment on above: Performed By: #### H EPATIC, CBC, BMP, LIPASE #### [address] Hemoglobin (Bld) [Mass/Vol] 12.0 g/dL Normal 11.8-15.4 [facility] Comment on above: Performed By: #### H EPATIC, CBC, BMP, LIPASE #### [address] Lymphocytes (Bld) [#/Vol] 2.3 10*3/uL Normal 1.00-4.8 [facility] Comment on above: Performed By: #### H EPATIC, CBC, BMP, LIPASE #### [address] Lymphocytes/100 WBC (Bld) 36.1 % Normal . [facility] Comment on above: Performed By: #### H EPATIC, CBC, BMP, LIPASE #### [address] MCH (RBC) [Entitic mass] 29.2 pg Normal 24.7-34.3 [facility] Comment on above: Performed By: #### H EPATIC, CBC, BMP, LIPASE #### [address] MCV (RBC) [Entitic vol] 86.7 fL Normal 80-100 [facility] Comment on above: Performed By: #### H EPATIC, CBC, BMP, LIPASE #### [address] Mean Corpuscular HGB Conc 33.7 g/dL Normal 32.0-35.0 [facility] Comment on above: Performed By: #### H EPATIC, CBC, BMP, LIPASE #### [address] Monocytes (Bld) [#/Vol] 0.5 10*3/uL Normal 0.0-0.8 [facility] Comment on above: Performed By: #### H EPATIC, CBC, BMP, LIPASE #### [address] Monocytes/100 WBC (Bld) 16.44 % Normal 0.00-20.00 [facility] Comment on above: Performed By: #### H EPATIC, CBC, BMP, LIPASE #### [address] Monocytes/100 WBC (Bld) 7.7 % Normal . [facility] Comment on above: Performed By: #### H EPATIC, CBC, BMP, LIPASE #### [address] Neutrophils (Bld) [#/Vol] 3.2 10*3/uL Normal 1.8-7.7 [facility] Comment on above: Performed By: #### H EPATIC, CBC, BMP, LIPASE #### [address] Neutrophils/100 WBC (Bld) 50.2 % Normal . [facility] Comment on above: Performed By: #### H EPATIC, CBC, BMP, LIPASE #### [address] NRBC% 0.1 /100{WBC} Normal 0-0.5 [facility] Comment on above: Performed By: #### H EPATIC, CBC, BMP, LIPASE #### [address] Platelet mean volume (Bld) [Entitic vol] 7.6 fL Normal 6.3-10.7 [facility] Comment on above: Performed By: #### H EPATIC, CBC, BMP, LIPASE #### [address] Platelets (Bld) [#/Vol] 357 10*3/uL Normal 150-450 [facility] Comment on above: Performed By: #### H EPATIC, CBC, BMP, LIPASE #### [address] RBC (Bld) [#/Vol] 4.12 10*6/uL Normal 3.60-5.00 [facility] Comment on above: Performed By: #### H EPATIC, CBC, BMP, LIPASE #### [address] WBC (Bld) [#/Vol] 6.3 10*3/uL Normal 3.8-11.6 [facility] Comment on above: Performed By: #### H EPATIC, CBC, BMP, LIPASE #### [address] Creatinine [Mass/volume] in Serum or PlasmaOrdered By: Pete Thakkar on 03-23-2023 Creatinine [Mass/Vol] 0.72 mg/dL 0.60-1.20 [facility] Dipstick and Microscopicon 0 03-23-2023 Appearance (U) Clear Normal Clear [facility] Comment on above: Order Comment: Name Collection Type:: Clean-Voided Midstream Performed By: #### P ORS #### [facility] [address] [place] [address] [place] Bacteria,Urine 1+ High None Seen [facility] Comment on above: Order Comment: Name Collection Type:: Clean-Voided Midstream Performed By: #### P ORS #### [facility] [address] [place] [address] [place] Bilirubin,Urine Negative Normal Negative [facility] Comment on above: Order Comment: Name Collection Type:: Clean-Voided Midstream Performed By: #### P ORS #### [facility] [address] [place] [address] [place] Color (U) Yellow Normal Yellow [facility] Comment on above: Order Comment: Name Collection Type:: Clean-Voided Midstream Performed By: #### P ORS #### [facility] [address] [place] [address] Glucose Ql (U) Normal Normal Normal [facility] Comment on above: Order Comment: Name Collection Type:: Clean-Voided Midstream Performed By: #### P ORS #### [facility] [address] [place] [address] [place] Hyaline Casts,Urine None Seen Normal 0-8 [facility] Comment on above: Order Comment: Name Collection Type:: Clean-Voided Midstream Result Comment: PERF ORMED BY: [place] [address] PATHOLOGIST [employer] ROOSEVELT KEYES M.D. Performed By: #### P ORS #### [facility] [address] [place] [address] [place] Ketones Ql (U) Negative Normal Negative [facility] Comment on above: Order Comment: Name Collection Type:: Clean-Voided Midstream Performed By: #### P ORS #### [facility] [address] [place] [address] [place] Leukocyte esterase Test strip Ql (U) Negative Normal Negative [facility] Comment on above: Order Comment: Name Collection Type:: Clean-Voided Midstream Performed By: #### P ORS #### [facility] [address] [place] [address] [place] Nitrite,Urine Negative Normal Negative [facility] Comment on above: Order Comment: Name Collection Type:: Clean-Voided Midstream Performed By: #### P ORS #### [place] [address] [place] Occult Blood,Urine Trace High Negative [facility] Comment on above: Order Comment: Name Collection Type:: Clean-Voided Midstream Result Comment: PERF ORMED BY: [place] [address] PATHOLOGIST [employer] ROOSEVELT KEYES M.D. Performed By: #### P ORS #### [address] pH (U) 5.0 [pH] Normal 5.0-9.0 [facility] Comment on above: Order Comment: Name Collection Type:: Clean-Voided Midstream Performed By: #### P ORS #### [place] [address] [place] Protein,Urine Negative Normal Negative [facility] Comment on above: Order Comment: Name Collection Type:: Clean-Voided Midstream Performed By: #### P ORS #### [facility] [address] [place] [address] [place] RBC LM.HPF (Urine sed) [#/Area] 0 /[HPF] Normal 0-4 [facility] Comment on above: Order Comment: Name Collection Type:: Clean-Voided Midstream Performed By: #### P ORS #### [facility] [address] [place] [address] [place] Specificy Hundred,Urine 1.048 High 1.001-1.030 [facility] Comment on above: Order Comment: Name Collection Type:: Clean-Voided Midstream Performed By: #### P ORS #### [place] [address] [place] Squamous Epithelial Cell,Urine None Seen Normal 0-2 [facility] Comment on above: Order Comment: Name Collection Type:: Clean-Voided Midstream Performed By: #### P ORS #### [facility] [address] Urobilinogen,Urine Normal Normal Normal [facility] Comment on above: Order Comment: Name Collection Type:: Clean-Voided Midstream Performed By: #### P ORS #### [facility] [address] WBC LM.HPF (Urine sed) [#/Area] 0 /[HPF] Normal 0-4 [facility] Comment on above: Order Comment: Name Collection Type:: Clean-Voided Midstream Performed By: #### P ORS #### [facility] [address] Eosinophils Auto (Bld) [#/Vo l]Ordered By: Pete Thakkar on 03-23-2023 Eosinophils (Bld) [#/Vol] 0.3 10*3/uL 0.0-0.45 [facility] Eosinophils/100 WBC Auto (Bl d)Ordered By: Pete Thakkar on 03-23-2023 Eosinophils/100 WBC (Bld) 5.0 % . [facility] Erythrocyte distribution wid th Auto (RBC) [Ratio]Ordered By: Pete Thakkar on 03-23-2023 Erythrocyte distribution width (RBC) [Ratio] 13.6 % 11.9-15.3 [facility] Globulin Calc (S) [Mass/Vol] Ordered By: Pete Thakkar on 03-23-2023 Globulin (S) [Mass/Vol] 2.9 g/dL [facility] Glucose [Mass/volume] in Ser um or PlasmaOrdered By: Pete Thakkar on 03-23-2023 Glucose [Mass/Vol] 79 mg/dL 70-100 [facility] Comment on above: ADA recommended refe rence rangeRandom Glucose Reference Range is dependent on time and content of last meal. Glucose of more than 200 mg/dL in a nonstressed, ambulatory subject supports the diagnosis of Diabetes Mellitus. Hematocrit Auto (Bld) [Volum e fraction]Ordered By: Pete Thakkar on 03-23-2023 Hematocrit (Bld) [Volume fraction] 35.7 % 34.0-46.4 [facility] Hemoglobin [Mass/volume] in BloodOrdered By: Pete Thakkar on 03-23-2023 Hemoglobin (Bld) [Mass/Vol] 12.0 g/dL 11.8-15.4 [facility] Hepatic Panelon 03-23-2023 Albumin [Mass/Vol] 4.1 g/dL Normal 3.5-5.7 [facility] Comment on above: Performed By: #### H EPATIC, CBC, BMP, LIPASE #### [facility] [address] Albumin/Globulin [Mass ratio] 1.4 {ratio} Normal [facility] Comment on above: Performed By: #### H EPATIC, CBC, BMP, LIPASE #### [facility] [address] [place] [address] ALP [Catalytic activity/Vol] 115 U/L High 34-104 [facility] Comment on above: Performed By: #### H EPATIC, CBC, BMP, LIPASE #### [facility] [address] [place] [address] ALT [Catalytic activity/Vol] 11 U/L Normal 7-52 [facility] Comment on above: Performed By: #### H EPATIC, CBC, BMP, LIPASE #### [facility] [address] [place] [address] AST [Catalytic activity/Vol] 15 U/L Normal 13-39 [facility] Comment on above: Performed By: #### H EPATIC, CBC, BMP, LIPASE #### [facility] [address] [place] [address] Bilirubin [Mass/Vol] 0.3 mg/dL Normal 0.3-1.[address] [facility] Comment on above: Performed By: #### H EPATIC, CBC, BMP, LIPASE #### [facility] [address] [place] [address] [place] Bilirubin,Indirect 0.2 mg/dL Normal [facility] Comment on above: Performed By: #### H EPATIC, CBC, BMP, LIPASE #### [facility] [address] [place] [address] [place] Bilirubin.indirect [Mass/Vol] 0.10 mg/dL Normal 0.03-0.18 [facility] Comment on above: Performed By: #### H EPATIC, CBC, BMP, LIPASE #### [facility] [address] Globulin (S) [Mass/Vol] 2.9 g/dL Normal [facility] Comment on above: Performed By: #### H EPATIC, CBC, BMP, LIPASE #### [facility] [address] Protein [Mass/Vol] 7.0 g/dL Normal 6.4-8.9 [facility] Comment on above: Performed By: #### H EPATIC, CBC, BMP, LIPASE #### [address] Ketones Auto test strip (U) [Mass/Vol]Ordered By: Pete Thakkar on 03-23-2023 Ketones (U) [Mass/Vol] Negative Negative [facility] Laboratory - UrinalysisOrder ed By: Ptee Thakkar on 03-23-2023 Hyaline casts LM Ql (Urine sed) None seen [LPF] 0-8 [facility] Leukocytes [#/volume] correc jun for nucleated erythrocytes in Blood by Automated counOrdered By: Pete Thakkar on 03-23-2023 WBC corrected for nucl RBC Auto (Bld) [#/Vol] 6.3 10*3/uL 3.8-11.6 [facility] Lipaseon 03-23-2023 Lipase [Catalytic activity/Vol] 32.0 U/L Normal 11.0-82.0 [facility] Comment on above: Result Comment: PERF ORMED BY: [address] [place] [address] PATHOLOGIST [employer] ROOSEVELT KEYES M.D. Performed By: #### H EPATIC, CBC, BMP, LIPASE #### [facility] [address] [place] [address] Lipase [Enzymatic activity/v olume] in Serum or PlasmaOrdered By: Pete Thakkar on 03-23-2023 Lipase [Catalytic activity/Vol] 32.0 U/L 11.0-82.0 [facility] Lymphocytes Auto (Bld) [#/Vo l]Ordered By: Pete Thakkar on 03-23-2023 Lymphocytes (Bld) [#/Vol] 2.3 10*3/uL 1.00-4.8 [facility] Lymphocytes/100 WBC Auto (Bl d)Ordered By: Pete Thakkar on 03-23-2023 Lymphocytes/100 WBC (Bld) 36.1 % . [facility] MCH Auto (RBC) [Entitic mass ]Ordered By: Pete Thakkar on 03-23-2023 MCH (RBC) [Entitic mass] 29.2 pg 24.7-34.3 [facility] MCHC Auto (RBC) [Mass/Vol]Or dered By: Pete Thakkar on 03-23-2023 MCHC (RBC) [Mass/Vol] 33.7 g/dL 32.0-35.0 [facility] MCV Auto (RBC) [Entitic vol] Ordered By: Pete Thakkar on 03-23-2023 MCV (RBC) [Entitic vol] 86.7 fL 80-100 [facility] Monocyte distribution width [Entitic volume] in Blood by AutomatedOrdered By: Pete Thakkar on 03-23-2023 Monocyte distribution width Auto (Bld) [Entitic vol] 16.44 % 0.00-20.00 [facility] Monocytes Auto (Bld) [#/Vol] Ordered By: Pete Thakkar on 03-23-2023 Monocytes (Bld) [#/Vol] 0.5 10*3/uL 0.0-0.8 [facility] Monocytes/100 WBC Auto (Bld) Ordered By: Pete Thakkar on 03-23-2023 Monocytes/100 WBC (Bld) 7.7 % . [facility] Neutrophils Auto (Bld) [#/Vo l]Ordered By: Pete Thakkar on 03-23-2023 Neutrophils (Bld) [#/Vol] 3.2 10*3/uL 1.8-7.7 [facility] Neutrophils/100 WBC Auto (Bl d)Ordered By: Pete Thakkar on 03-23-2023 Neutrophils/100 WBC (Bld) 50.2 % . [facility] Nitrite Test strip Ql (U)Ord ered By: Pete Thakkar on 03-23-2023 Nitrite Ql (U) Negative Negative [facility] No Panel InformationOrdered By: Pete Thakkar on 03-23-2023 Estimated GFR (CKD-EPI) > 60.0 mL/Min [facility] Creatinine Clearance (Chem 105.27 [facility] Nucleated erythrocytes [Pres ence] in Blood by Automated countOrdered By: Pete Thakkar on 03-23-2023 Nucleated RBC Auto Ql (Bld) 0.1 /100{WBC} 0-0.5 [facility] Platelet mean volume Auto (B ld) [Entitic vol]Ordered By: Pete Thakkar on 03-23-2023 Platelet mean volume (Bld) [Entitic vol] 7.6 fL 6.3-10.7 [facility] Platelets Auto (Bld) [#/Vol] Ordered By: Pete Thakkar on 03-23-2023 Platelets (Bld) [#/Vol] 357 10*3/uL 150-450 [facility] Potassium [Moles/volume] in Serum or PlasmaOrdered By: Pete Thakkar on 03-23-2023 Potassium [Moles/Vol] 3.6 mmol/L 3.5-5.1 [facility] Protein Auto test strip (U) [Mass/Vol]Ordered By: Pete Thakkar on 03-23-2023 Protein (U) [Mass/Vol] Negative Negative [facility] Protein [Mass/volume] in Ser um or PlasmaOrdered By: Pete Thakkar on 03-23-2023 Protein [Mass/Vol] 7.0 g/dL 6.4-8.9 [facility] RBC Auto (Bld) [#/Vol]Ordere d By: Pete Thakkar on 03-23-2023 RBC (Bld) [#/Vol] 4.12 10*6/uL 3.60-5.00 [facility] Serum or plasma albumin/glob ulin mass ratioOrdered By: Pete Thakkar on 03-23-2023 Albumin/Globulin [Mass ratio] 1.4 {ratio} [facility] Serum or plasma anion gap de terminationOrdered By: Pete Thakkar on 03-23-2023 Anion gap [Moles/Vol] 10.1 mmol/L 6.0-15.0 [facility] Serum or plasma non-glucuron idated bilirubin measurement (mass/volume)Ordered By: Pete Thakkar on 03-23-2023 Bilirubin.indirect [Mass/Vol] 0.2 mg/dL [facility] Sodium [Moles/volume] in Ser um or PlasmaOrdered By: Pete Thakkar on 03-23-2023 Sodium [Moles/Vol] 142 mmol/L 136-145 [facility] Specific gravity Auto test s trip (U) [Rel density]Ordered By: Pete Thakkar on 03-23-2023 Specific gravity (U) [Rel density] 1.048 1.001-1.030 [facility] Squamous epithelial cells de tection in urine sediment by light microscopyOrdered By: Pete Thakkar on 03-23-2023 Epithelial cells.squamous LM Ql (Urine sed) None seen [HPF] 0-2 [facility] Troponin I High Sensitivityo n 03-23-2023 Troponin I High Sensitivity 12.2 pg/mL Normal 0.0-15.0 [facility] Comment on above: Result Comment: PERF ORMED BY: [place] [address] PATHOLOGIST [employer] ROOSEVELT KEYES M.D. Performed By: #### H S TROP #### [address] Troponin I.cardiac [Mass/vol ume] in Serum or Plasma by Detection limit <= 0.01 ng/Ordered By: Pete Thakkar on 03-23-2023 Troponin I.cardiac DL <= 0.01 ng/mL [Mass/Vol] 12.2 pg/mL 0.0-15.0 [facility] Urea nitrogen [Mass/volume] in Serum or PlasmaOrdered By: Pete Thakkar on 03-23-2023 Urea nitrogen [Mass/Vol] 24 mg/dL 7-25 [facility] Urine bacteria detection by automated methodOrdered By: Pete Thakkar on 03-23-2023 Bacteria Auto Ql (U) 1+ None Seen [facility] Urine clarity by refractomet ry automatedOrdered By: Pete Thakkar on 03-23-2023 Clarity Refractometry automated (U) Clear Clear [facility] Urine glucose measurement by automated test strip (mass/volume)Ordered By: Pete Thakkar on 03-23-2023 Glucose Auto test strip (U) [Mass/Vol] Normal mg/dL Normal [facility] Urine hemoglobin detection b y automated test stripOrdered By: Pete Thakkar on 03-23-2023 Hemoglobin Auto test strip Ql (U) Trace Negative [facility] Urine leukocyte esterase det ection by automated test stripOrdered By: Pete Thakkar on 03-23-2023 Leukocyte esterase Auto test strip Ql (U) Negative Negative [facility] Urobilinogen Auto test strip (U) [Mass/Vol]Ordered By: Pete Thakkar on 03-23-2023 Urobilinogen (U) [Mass/Vol] Normal mg/dL Normal [facility] WBC Auto (Bld) [#/Vol]Ordere d By: Pete Thakkar on 03-23-2023 WBC (Bld) [#/Vol] 6.3 10*3/uL 3.8-11.6 [facility] pH Auto test strip (U)Ordere d By: ePte Thakkar on 03-23-2023 pH (U) 5.0 [pH] 5.0-9.0 [facility] Discharge Instructionson Discharge Instructions [id number]#[id number]:127 [facility] Comment on above: Other Comment: wrong folder Prescriptions/Work Noteson 0 03-03-2023 Prescriptions/Work Notes [id number]#[id number]:127 [facility] Consent for Treatmenton 02-03 Consent for Treatment [id number]#[id number]:127 [facility] Discharge Instructionson Discharge Instructions [id number]#[id number]:127 Normal [facility] ED Clinical Summaryon 2022 ED Clinical Summary (Inserted Image. Kristin ble to display) [address] [address] ED Clinical Summary Person Information Name: CONSTANTINO CARDOSO/NewKarolyn Age: 52 Years : 1970 Sex: Female Language: Russian PCP: JUDI YOUSSEF CNP Marital Status: Phone: [phone] MRN: Visit Id: Visit Reason: Wrist pain-swelling; [...] 02/19/2023 01:41:18 02/19/2023 01:41:18 ADDRESS: [address] [facility] [facility] [phone] PHYS DOC NOTES: MEDICAL INFORMATION: Prescriptions Given: New Medications [id number], [address], [place] [phone], [phone] naproxen (Naprosyn 500 mg Tab) 1 Tablets [...] When: JUDI YOUSSEF [address] [place] [place] [phone] Business (1) In 3 days 02/22/2023 Comments: Take the pain medication as prescribed as needed for pain. Please follow-up with your primary care doctor in the next 2 to 3 days for further evaluation management. Please return to the ED for any new or worsening symptoms or DIAGNOSIS: Right wrist sprain Normal [facility] ED Note-Physicianon 02-20-20 ED Note-Physician Basic Information Time Seen: kaye Franklinwilliam Ibrahim 02/19/2023 00:51 Chief Complaint states fell yesterday injuring right wrist. was seen at [facility] splint in place. states pain radiating up the arm. taking motrin and tylenol History of Present Illness Patient is a 52-year-old female with past medical history of hypertension gastroparesis presenting to the ED for evaluation of right arm pain. Patient had a fall yesterday was seen at [facility] had x-rays and was told it was [...] and Complexity of Problems Differential Diagnosis: [] [facility] Data External documents reviewed: [] My [...] and elbow are obtained. Patient is given Sacul in the ED for pain. X-rays do [...] pain, # 20 tab(s), Refills(s) 0, Pharmacy: [id number], 170, cm, 02/19/23 0:56:00 EDT, Height/Length Dosing, 90.2, kg, 02/19/23 0:56:00 EDT, Weight Dosing XR Elbow 3+ Views Right XR Wrist 3+ Views Right Medications Administered Given Sacul 5/325 Tab, 1 tab(s), Oral Disposition Plan Discharge Prescription List Prescriptions Naprosyn 500 mg Tab, 500 mg= 1 tab(s), Oral, BID, PRN Follow-up With When Contact Information JUDI YOUSSEF In 3 days 02/22/2023 EDT [address] [place] [address]- [phone] Business (1) Additional Instructions: Take the pain [...] (03/02/2019), Cholecystectomy, Hernia repair, Hysterectomy. Medications Inpatient Sacul 5/325 Tab, 1 tab(s), Oral, Once Home albuterol HFA 90 mcg/inh MDI, 2 pu (more content not included)... Normal [facility] Comment on above: Result Comment: Elec tronically [...] safe for you. General instructions ? Take wwjh-cnz-oxdbtij and prescription medicines only as told by [...] it gets (more content not included)... Normal [facility] ED Patient Summaryon 023 ED Patient Summary (Inserted Image. Kristin ble to display) [address] [address] Patient Discharge Instructions Person Information Name: CONSTANTINO CARDOSO Age: 52 Years Arrival Date: 02/19/2023 00:48:45 Discharge Diagnosis: Right wrist sprain Primary Care Physician: JUDI YOUSSEF CNP Provider Information Primary Provider: Zabrina Patton DO [employer] Administrator:None The exam and treatment you received in the Emergency Department were for an urgent problem and are not intended as complete care. It is important that you follow up with a doctor, nurse practitioner, or physician?s assistant office manager for ongoing care. If your symptoms [...] When: JUDI YOUSSEF [address] [place] [address] [phone] Business (1) In 3 days 02/22/2023 Comments: [...] opioids can be used to help relieve lvftfhqx-jo-fqexra pain and are often prescribed following a [...] the ris (more content not included)... Normal [facility] XR Elbow 3+ Views Righton XR Elbow [...] mGy = na DAP = na Normal [facility] XR Wrist 3+ Views Righton XR Wrist [...] mGy = na DAP = na Normal [facility] Activated partial thrombopla stin time (aPTT) in platelet poor plasma by coagulation aOrdered By: Conner Griffith on 02-15-2023 aPTT Coag (PPP) [Time] 37.0 s 25.1-36.5 [facility] Alanine aminotransferase [En zymatic activity/volume] in Serum or PlasmaOrdered By: Conner Griffith on 02-15-2023 ALT [Catalytic activity/Vol] 13 U/L 7-52 [facility] Albumin [Mass/volume] in Ser um or Plasma by Bromocresol green (BCG) dye binding methoOrdered By: Conner Griffith on 02-15-2023 Albumin BCG dye [Mass/Vol] 4.3 g/dL 3.5-5.7 [facility] Alkaline phosphatase [Enzyma tic activity/volume] in Serum or PlasmaOrdered By: Conner Griffith on 02-15-2023 ALP [Catalytic activity/Vol] 124 U/L 34-104 [facility] Aspartate aminotransferase [ Enzymatic activity/volume] in Serum or PlasmaOrdered By: Conner Griffith on 02-15-2023 AST [Catalytic activity/Vol] 15 U/L 13-39 [facility] Basic Metabolic Panelon 02-03 Anion gap [Moles/Vol] 12.6 mmol/L Normal 6.0-15.0 [facility] Comment on above: Performed By: #### H EPATIC, CBC, BMP, LIPASE #### [facility] [address] Calcium [Mass/Vol] 9.3 mg/dL Normal 8.6-10.3 [facility] Comment on above: Performed By: #### H EPATIC, CBC, BMP, LIPASE #### [facility] [address] [place] [address] [place] Chloride [Moles/Vol] 106 mmol/L Normal 98-[address] [facility] Comment on above: Performed By: #### H EPATIC, CBC, BMP, LIPASE #### [facility] [address] [place] [address] [place] CO2 [Moles/Vol] 25.3 mmol/L Normal 21.0-31.0 [facility] Comment on above: Performed By: #### H EPATIC, CBC, BMP, LIPASE #### [facility] [address] Creatinine [Mass/Vol] 0.77 mg/dL Normal 0.60-1.20 [facility] Comment on above: Performed By: #### H EPATIC, CBC, BMP, LIPASE #### [facility] [address] [place] [address] [place] Creatinine Clr Calc Pharmacy 98.01 [facility] Comment on above: Performed By: #### H EPATIC, CBC, BMP, LIPASE #### [facility] [address] [place] [address] [place] GFR/1.73 sq M.predicted MDRD (S/P/Bld) [Vol rate/Area] mL/min/{1.73_m2} [facility] Comment on above: Performed By: #### H EPATIC, CBC, BMP, LIPASE #### [facility] [address] Glucose [Mass/Vol] 94 mg/dL Normal 70-100 [facility] Comment on above: Result Comment: [place] Glucose Reference Range is dependent on time and content of last meal. Glucose of more than 200 mg/dL in a nonstressed, ambulatory subject supports the diagnosis of Diabetes Mellitus. ADA recommended reference range Performed By: #### H EPATIC, CBC, BMP, LIPASE #### [facility] [address] [place] [address] [place] Potassium [Moles/Vol] 3.9 mmol/L Normal 3.5-5.1 [facility] Comment on above: Performed By: #### H EPATIC, CBC, BMP, LIPASE #### [facility] [address] [place] [address] [place] Sodium [Moles/Vol] 140 mmol/L Normal 136-145 [facility] Comment on above: Performed By: #### H EPATIC, CBC, BMP, LIPASE #### [facility] [address] [place] [address] [place] Urea nitrogen [Mass/Vol] 14 mg/dL Normal 7-25 [facility] Comment on above: Performed By: #### H EPATIC, CBC, BMP, LIPASE #### [facility] [address] [place] [address] [place] Basophils Auto (Bld) [#/Vol] Ordered By: Conner Griffith on 02-15-2023 Basophils (Bld) [#/Vol] 0.0 10*3/uL 0.0-0.2 [facility] Basophils/100 WBC Auto (Bld) Ordered By: Conner Griffith on 02-15-2023 Basophils/100 WBC (Bld) 0.6 % . [facility] Bilirubin.direct [Mass/volum e] in Serum or PlasmaOrdered By: Conner Griffith on 02-15-2023 Bilirubin.direct [Mass/Vol] 0.00 mg/dL 0.03-0.18 [facility] Comment on above: If the DBIL is less than 0.1, IBIL is not able to becalculated. Bilirubin.total [Mass/volume ] in Serum or PlasmaOrdered By: Conner Griffith on 02-15-2023 Bilirubin [Mass/Vol] 0.4 mg/dL 0.3-1.[address] [facility] CT abdomen pelvis w conon CT abdomen pelvis w con [facility] [place] [address] [place] [address] CT Scan Report Signed Patient: Constantino Cardoso MR#: [id number] : 1970 Acct:[id number] Age/Sex: 52 / F ADM Date: 02/15/23 Loc: ER Room: Type: [facility] ER Attending Dr: Copies to: Conner [...] Columba Domínguez M.D.02/15/2023 9:56 AM Dictation Location: [place] [address] Transcribed By: [facility] 02/15/23 0956 Dictated By: Columba Domínguez MD 02/15/23 0943 Signed By: 02/15/23 0956 Normal [facility] Calcium [Mass/volume] in Ser um or PlasmaOrdered By: Conner Griffith on 02-15-2023 Calcium [Mass/Vol] 9.3 mg/dL 8.6-10.3 [facility] Carbon dioxide, total [Moles /volume] in Serum or PlasmaOrdered By: Conner Griffith on 02-15-2023 CO2 [Moles/Vol] 25.3 mmol/L 21.0-31.0 [facility] Chloride [Moles/volume] in S cristine or PlasmaOrdered By: Conner Griffith on 02-15-2023 Chloride [Moles/Vol] 106 mmol/L 98-[address] [facility] Complete Blood Count Auto Di ffon 02-15-2023 Basophils (Bld) [#/Vol] 0.0 10*3/uL Normal 0.0-0.2 [facility] Comment on above: Result Comment: PERF ORMED BY: [place] [address] PATHOLOGIST [employer] ROOSEVELT KEYES M.D. Performed By: #### P ORS #### [address] Basophils/100 WBC (Bld) 0.6 % Normal . [facility] Comment on above: Performed By: #### P ORS #### [address] Eosinophils (Bld) [#/Vol] 0.2 10*3/uL Normal 0.0-0.45 [facility] Comment on above: Performed By: #### P ORS #### [address] Eosinophils/100 WBC (Bld) 4.0 % Normal . [facility] Comment on above: Performed By: #### P ORS #### [address] Erythrocyte distribution width (RBC) [Ratio] 13.5 % Normal 11.9-15.3 [facility] Comment on above: Performed By: #### P ORS #### [address] Hematocrit (Bld) [Volume fraction] 38.4 % Normal 34.0-46.4 [facility] Comment on above: Performed By: #### P ORS #### [address] Hemoglobin (Bld) [Mass/Vol] 13.0 g/dL Normal 11.8-15.4 [facility] Comment on above: Performed By: #### P ORS #### [address] Lymphocytes (Bld) [#/Vol] 1.8 10*3/uL Normal 1.00-4.8 [facility] Comment on above: Performed By: #### P ORS #### [address] Lymphocytes/100 WBC (Bld) 33.8 % Normal . [facility] Comment on above: Performed By: #### P ORS #### [address] MCH (RBC) [Entitic mass] 29.4 pg Normal 24.7-34.3 [facility] Comment on above: Performed By: #### P ORS #### [address] MCV (RBC) [Entitic vol] 86.8 fL Normal 80-100 [facility] Comment on above: Performed By: #### P ORS #### [address] Mean Corpuscular HGB Conc 33.8 g/dL Normal 32.0-35.0 [facility] Comment on above: Performed By: #### P ORS #### [address] Monocytes (Bld) [#/Vol] 0.3 10*3/uL Normal 0.0-0.8 [facility] Comment on above: Performed By: #### P ORS #### [address] Monocytes/100 WBC (Bld) 18.21 % Normal 0.00-20.00 [facility] Comment on above: Performed By: #### P ORS #### [address] Monocytes/100 WBC (Bld) 4.8 % Normal . [facility] Comment on above: Performed By: #### P ORS #### [address] Neutrophils (Bld) [#/Vol] 3.0 10*3/uL Normal 1.8-7.7 [facility] Comment on above: Performed By: #### P ORS #### [address] Neutrophils/100 WBC (Bld) 56.8 % Normal . [facility] Comment on above: Performed By: #### P ORS #### [facility] [address] [place] [address] NRBC% 0.2 /100{WBC} Normal 0-0.5 [facility] Comment on above: Performed By: #### P ORS #### [address] Platelet mean volume (Bld) [Entitic vol] 7.3 fL Normal 6.3-10.7 [facility] Comment on above: Performed By: #### P ORS #### [facility] [address] [place] [address] Platelets (Bld) [#/Vol] 385 10*3/uL Normal 150-450 [facility] Comment on above: Performed By: #### P ORS #### [facility] [address] [place] [address] RBC (Bld) [#/Vol] 4.43 10*6/uL Normal 3.60-5.00 [facility] Comment on above: Performed By: #### P ORS #### [facility] [address] [place] [address] WBC (Bld) [#/Vol] 5.2 10*3/uL Normal 3.8-11.6 [facility] Comment on above: Performed By: #### P ORS #### [address] Creatinine [Mass/volume] in Serum or PlasmaOrdered By: Conner Griffith on 02-15-2023 Creatinine [Mass/Vol] 0.77 mg/dL 0.60-1.20 [facility] Eosinophils Auto (Bld) [#/Vo l]Ordered By: Conner Griffith on 02-15-2023 Eosinophils (Bld) [#/Vol] 0.2 10*3/uL 0.0-0.45 [facility] Eosinophils/100 WBC Auto (Bl d)Ordered By: Conner Griffith on 02-15-2023 Eosinophils/100 WBC (Bld) 4.0 % . [facility] Erythrocyte distribution wid th Auto (RBC) [Ratio]Ordered By: Conner Griffith on 02-15-2023 Erythrocyte distribution width (RBC) [Ratio] 13.5 % 11.9-15.3 [facility] Globulin Calc (S) [Mass/Vol] Ordered By: Conner Griffith on 02-15-2023 Globulin (S) [Mass/Vol] 3.0 g/dL [facility] Glucose [Mass/volume] in Ser um or PlasmaOrdered By: Conner Griffith on 02-15-2023 Glucose [Mass/Vol] 94 mg/dL 70-100 [facility] Comment on above: ADA recommended refe rence rangeRandom Glucose Reference Range is dependent on time and content of last meal. Glucose of more than 200 mg/dL in a nonstressed, ambulatory subject supports the diagnosis of Diabetes Mellitus. Hematocrit Auto (Bld) [Volum e fraction]Ordered By: Conner Griffith on 02-15-2023 Hematocrit (Bld) [Volume fraction] 38.4 % 34.0-46.4 [facility] Hemoglobin [Mass/volume] in BloodOrdered By: Conner Griffith on 02-15-2023 Hemoglobin (Bld) [Mass/Vol] 13.0 g/dL 11.8-15.4 [facility] Hepatic Panelon 02-15-2023 Albumin [Mass/Vol] 4.3 g/dL Normal 3.5-5.7 [facility] Comment on above: Performed By: #### P ORS #### [facility] [address] [place] [address] [place] Albumin/Globulin [Mass ratio] 1.4 {ratio} Normal [facility] Comment on above: Performed By: #### P ORS #### [facility] [address] [place] [address] [place] ALP [Catalytic activity/Vol] 124 U/L High 34-104 [facility] Comment on above: Performed By: #### P ORS #### [facility] [address] [place] [address] ALT [Catalytic activity/Vol] 13 U/L Normal 7-52 [facility] Comment on above: Performed By: #### P ORS #### [address] AST [Catalytic activity/Vol] 15 U/L Normal 13-39 [facility] Comment on above: Performed By: #### P ORS #### [address] Bilirubin [Mass/Vol] 0.4 mg/dL Normal 0.3-1.[address] [facility] Comment on above: Performed By: #### P ORS #### [address] Bilirubin,Indirect 0.4 mg/dL Normal [facility] Comment on above: Performed By: #### P ORS #### [address] Bilirubin.indirect [Mass/Vol] 0.00 mg/dL Low 0.03-0.18 [facility] Comment on above: Result Comment: If t he DBIL is less than 0.1, IBIL is not able to be calculated. Performed By: #### P ORS #### [address] Globulin (S) [Mass/Vol] 3.0 g/dL Normal [facility] Comment on above: Performed By: #### P ORS #### [address] Protein [Mass/Vol] 7.3 g/dL Normal 6.4-8.9 [facility] Comment on above: Performed By: #### P ORS #### [address] Laboratory - CoagulationOrde red By: Conner Griffith on 02-15-2023 PT Coag (PPP) [Time] 11.7 s 9.0-12.[address] [facility] Leukocytes [#/volume] correc jun for nucleated erythrocytes in Blood by Automated counOrdered By: Conner Griffith on 02-15-2023 WBC corrected for nucl RBC Auto (Bld) [#/Vol] 5.2 10*3/uL 3.8-11.6 [facility] Lipaseon 02-15-2023 Lipase [Catalytic activity/Vol] 19.0 U/L Normal 11.0-82.0 [facility] Comment on above: Result Comment: PERF ORMED BY: [facility] [address] [place] [address] PATHOLOGIST [employer] ROOSEVELT KEYES M.D. Performed By: #### H EPATIC, CBC, BMP, LIPASE #### [facility] [address] Lipase [Enzymatic activity/v olume] in Serum or PlasmaOrdered By: Conner Griffith on 02-15-2023 Lipase [Catalytic activity/Vol] 19.0 U/L 11.0-82.0 [facility] Lymphocytes Auto (Bld) [#/Vo l]Ordered By: Conner Griffith on 02-15-2023 Lymphocytes (Bld) [#/Vol] 1.8 10*3/uL 1.00-4.8 [facility] Lymphocytes/100 WBC Auto (Bl d)Ordered By: Conner Griffith on 02-15-2023 Lymphocytes/100 WBC (Bld) 33.8 % . [facility] MCH Auto (RBC) [Entitic mass ]Ordered By: Conner Griffith on 02-15-2023 MCH (RBC) [Entitic mass] 29.4 pg 24.7-34.3 [facility] MCHC Auto (RBC) [Mass/Vol]Or dered By: Conner Griffith on 02-15-2023 MCHC (RBC) [Mass/Vol] 33.8 g/dL 32.0-35.0 [facility] MCV Auto (RBC) [Entitic vol] Ordered By: Conner Griffith on 02-15-2023 MCV (RBC) [Entitic vol] 86.8 fL 80-100 [facility] Monocyte distribution width [Entitic volume] in Blood by AutomatedOrdered By: Conner Griffith on 02-15-2023 Monocyte distribution width Auto (Bld) [Entitic vol] 18.21 % 0.00-20.00 [facility] Monocytes Auto (Bld) [#/Vol] Ordered By: Conner Griffith on 02-15-2023 Monocytes (Bld) [#/Vol] 0.3 10*3/uL 0.0-0.8 [facility] Monocytes/100 WBC Auto (Bld) Ordered By: Conner Griffith on 02-15-2023 Monocytes/100 WBC (Bld) 4.8 % . [facility] Neutrophils Auto (Bld) [#/Vo l]Ordered By: Conner Griffith on 02-15-2023 Neutrophils (Bld) [#/Vol] 3.0 10*3/uL 1.8-7.7 [facility] Neutrophils/100 WBC Auto (Bl d)Ordered By: Conner Griffith on 02-15-2023 Neutrophils/100 WBC (Bld) 56.8 % . [facility] No Panel InformationOrdered By: Conner Griffith on 02-15-2023 Estimated GFR (CKD-EPI) > 60.0 mL/Min [facility]acy Creatinine Clearance (Chem 98.01 [facility] Nucleated erythrocytes [Pres ence] in Blood by Automated countOrdered By: Conner Griffith on 02-15-2023 Nucleated RBC Auto Ql (Bld) 0.2 /100{WBC} 0-0.5 [facility] Partial Thromboplastin Timeo n 02-15-2023 aPTT Coag (Bld) [Time] 37.0 s High 25.1-36.5 [facility] Comment on above: Result Comment: PERF ORMED BY: [place] [address] PATHOLOGIST [employer] ROOSEVELT KEYES M.D. Performed By: #### P ORS #### [address] Platelet mean volume Auto (B ld) [Entitic vol]Ordered By: Conner Griffith on 02-15-2023 Platelet mean volume (Bld) [Entitic vol] 7.3 fL 6.3-10.7 [facility] Platelet poor plasma interna tional normalized ratio (INR) by coagulation assay (relatOrdered By: Conner Griffith on 02-15-2023 INR Coag (PPP) [Relative time] 1.0 {INR} [facility] Comment on above: INR Therapeutic Rang e [...] (Bld) [#/Vol] 385 10*3/uL 150-450 [facility] Potassium [Moles/volume] in Serum or PlasmaOrdered By: Conner Griffith on 02-15-2023 Potassium [Moles/Vol] 3.9 mmol/L 3.5-5.1 [facility] Protein [Mass/volume] in Ser um or PlasmaOrdered By: Conner Griffith on 02-15-2023 Protein [Mass/Vol] 7.3 g/dL 6.4-8.9 [facility] Prothrombin Time INRon 02-15 INR Coag (PPP) [Relative time] 1.0 {INR} Normal [facility] Comment on above: Result Comment: INR Therapeutic [...] 4.5 Performed By: #### P ORS #### [address] PT Coag (PPP) [Time] 11.7 s Normal 9.0-12.[address] [facility] Comment on above: Performed By: #### P ORS #### [facility] [address] [place] [id number] [facility] RBC Auto (Bld) [#/Vol]Ordere d By: Conner Griffith on 02-15-2023 RBC (Bld) [#/Vol] 4.43 10*6/uL 3.60-5.00 [facility] Serum or plasma albumin/glob ulin mass ratioOrdered By: Conner Griffith on 02-15-2023 Albumin/Globulin [Mass ratio] 1.4 {ratio} [facility] Serum or plasma anion gap de terminationOrdered By: Conner Griffith on 02-15-2023 Anion gap [Moles/Vol] 12.6 mmol/L 6.0-15.0 [facility] Serum or plasma non-glucuron idated bilirubin measurement (mass/volume)Ordered By: Conner Griffith on 02-15-2023 Bilirubin.indirect [Mass/Vol] 0.4 mg/dL [facility] Sodium [Moles/volume] in Ser um or PlasmaOrdered By: Conner Griffith on 02-15-2023 Sodium [Moles/Vol] 140 mmol/L 136-145 [facility] Urea nitrogen [Mass/volume] in Serum or PlasmaOrdered By: Conner Griffith on 02-15-2023 Urea nitrogen [Mass/Vol] 14 mg/dL 7-25 [facility] WBC Auto (Bld) [#/Vol]Ordere d By: Conner Griffith on 02-15-2023 WBC (Bld) [#/Vol] 5.2 10*3/uL 3.8-11.6 [facility] MG MAMM SCREEN 3D MACARIO CADon 11-30-2022 MG MAMM SCREEN 3D MACARIO CAD Normal [facility] ER URINE PROFILEon 3 Bilirubin Ql (U) Negative Normal NEGATIVE [facility] Comment on above: Performed By: #### E RUR ####[facility] [address] [place], [place] [address]SvNeo Tadeo Haja Clarity (U) CLEAR Normal CLEAR [facility] Comment on above: Performed By: #### E RUR ####[facility] [address] [place] [address]Dr. Tadeo Smyth Color (U) YELLOW Normal YELLOW [facility] Comment on above: Performed By: #### E RUR ####[facility] [address] [place], [place] [address]Dr. Tadeo Smyth ERUAHD A micrscopic examina tion will be performed if indicated. Normal [facility] Comment on above: Performed By: #### E RUR ####[facility] [address] [place], [place] [address]Dr. Tadeo Smyth Glucose Ql (U) Negative Normal NEGATIVE [facility] Comment on above: Performed By: #### E RUR ####[facility] [address] [place], [place] [address]Dr. Tadeo Smyth Hemoglobin Ql (U) TRACE-INTACT Abnormal NEGATIVE [facility] Comment on above: Performed By: #### E RUR ####[facility] [address] [place], [place] [address]Dr. Tadeo Smyth Ketones Ql (U) Negative Normal NEGATIVE [facility] Comment on above: Performed By: #### E RUR ####[facility] [address] [place], [place] [address]Dr. Tadeo Smyth LEUKOCYTES Negative Normal NEGATIVE [facility] Comment on above: Performed By: #### E RUR ####[facility] [address] [place], [place] [address]Dr. Tadeo Smyth Nitrite Ql (U) Negative Normal NEGATIVE [facility] Comment on above: Performed By: #### E RUR ####[facility] [address] [place], [place] [address]Dr. Tadeo Smyth pH (U) 6.0 [pH] Normal 5-9 [facility] Comment on above: Performed By: #### E RUR ####[facility] [address] [place], [place] [address]Dr. Tadeo Smyth SPEC GRAVITY >=1.030 Abnormal 1.005-<=1.0 25 [facility] Comment on above: Performed By: #### E RUR ####[facility] [address] [place] [address]Dr. Tadeo Smyth UA PROTEIN Negative Normal NEGATIVE/ TRACE [facility] Comment on above: Performed By: #### E RUR ####[facility] [address] [place], [place] [address]Dr. Margotnicole Smyth UR MICRO IND NOT INDICATED Normal [facility] Comment on above: Performed By: #### E RUR ####[facility] [address] [place], [place] [address]Dr. Margotnicole Smyth Urobilinogen Qn (U) 0.2 {Benito'U}/dL Normal 0.2 - 1. 0 [facility] Comment on above: Performed By: #### E RUR ####[facility] [address] [place], [place] [address]Dr. Tadeo Smyth XR ABD FLAT UP_PA Kasey 11-28 XR ABD FLAT UP_PA CH Normal [facility] AMYLASEon 11-27-2022 Amylase [Catalytic activity/Vol] 63 U/L Normal 25-115 [facility] Comment on above: Performed By: #### L IPA, VIJI, CMP ####[facility] [address] [place], [place] [address]Dr. Tadeo Smyth CBC AUTO DIFFon 11-27-2022 BASO # 0.0 103/ul Normal 0.0-0.1 [facility] Comment on above: Performed By: #### C BC ####[facility] [address] [place], [place] [address]Dr. Tadeo Smyth Basophils/100 WBC (Bld) 0.4 % Normal 0.2-2.0 [facility] Comment on above: Performed By: #### C BC ####[facility] [address] [place], [place] [address]Dr. Tadeo Smyth EO # 0.2 103/ul Normal 0.0-0.7 [facility] Comment on above: Performed By: #### C BC ####[facility] [address] [place], [place] [address]Dr. Tadeo Smyth Eosinophils/100 WBC (Bld) 2.8 % Normal 0.9-7.0 [facility] Comment on above: Performed By: #### C BC ####[facility] [address] [place] [address]Dr. Tadeo Smyth Erythrocyte distribution width (RBC) [Ratio] 13.2 % Normal 11.0-15.0 [facility] [place] [facility] Comment on above: Performed By: #### C BC ####[facility] [address] [place], [place] [address]Dr. Tadeo Smyth Hematocrit (Bld) [Volume fraction] 42.6 % Normal 36.0-48.0 [facility] [place] [facility] Comment on above: Performed By: #### C BC ####[facility] Diyxxyuvgs[address] [place], [place] [address]Dr. Tadeo Smyth Hemoglobin (Bld) [Mass/Vol] 13.6 g/dL Normal 12.0-16.0 [facility] [place] [facility] Comment on above: Performed By: #### C BC ####[facility] Dbmusqxgoy[address] [place], [place] [address]Dr. Tadeo Smyth IG # 0.02 10e3/ul Normal 0.00-0.03 [facility] Comment on above: Performed By: #### C BC ####[facility] Fohsuffuyj87[address] [place], [place] [address]Dr. Tadeo Smyth IG % 0.3 % Normal 0.0-0.5 [facility] [place] [facility] Comment on above: Performed By: #### C BC ####[facility] Ncejtsdnxh[address] [place], [place] [address]Dr. Tadeo Smyth LYMPH # 2.2 103/ul Normal 1.2-3.8 [facility] Comment on above: Performed By: #### C BC ####[facility] Ptngxmpntt994[address] [place], [place] [address]Dr. Tadeo Smyth Lymphocytes/100 WBC (Bld) 32.1 % Normal 20.5-60.0 [facility] [place] [facility] Comment on above: Performed By: #### C BC ####[facility] Whqmjceqbe3694[address] [place], [place] [address]Dr. Tadeo Smyth MANUAL DIFF REQ NO Normal [facility] Comment on above: Performed By: #### C BC ####[facility] Vvikwssnqb[address] [place] [id number]. Tadeo Haja MCH (RBC) [Entitic mass] 29.6 pg Normal 26.7-34.0 [facility] [place] [facility] Comment on above: Performed By: #### C BC ####[facility] Bplbmnkbjj82[address] [place] [address]Dr. Tadeo Haja MCHC (RBC) [Mass/Vol] 31.9 g/dL Normal 29.9-35.2 [facility] Comment on above: Performed By: #### C BC ####[facility] Yguflsjwyl2865 [place] [address]Dr. Tadeo Smyth MCV (RBC) [Entitic vol] 92.6 fL Normal 81.0-99.0 [facility] [place] [facility] Comment on above: Performed By: #### C BC ####[facility] Mfqcxcqigs[address] [place], [place] [address]Dr. Tadeo Smyth MONO # 0.2 103/ul Critically low 0.3-0.8 [facility] [place] [facility] Comment on above: Performed By: #### C BC ####[facility] Aageomkbht3[address] [place], [place] [address]Dr. Tadeo Smyth Monocytes/100 WBC (Bld) 3.2 % Normal 1.7-12.0 [facility] [place] [facility] Comment on above: Performed By: #### C BC ####[facility] Dzzoowqvdl022[address] [place], [place] [address]DrNeo Smyth NEUT # 4.2 103/ul Normal 1.4-6.5 [facility] Comment on above: Performed By: #### C BC ####[facility] Wuljkfzzsd0[address] [place], [place] [address]DrNeo Smyth Neutrophils/100 WBC (Bld) 61.2 % Normal 43.0-75.0 [facility] Comment on above: Performed By: #### C BC ####[facility] Rjfoqbhjyt792[address] [place], [place] [address]DrNeo Smyth Platelet mean volume (Bld) [Entitic vol] 9.0 fL Critically low 9.5-13.5 [facility] Comment on above: Performed By: #### C BC ####[facility] Offkdeuiar[address] [place] [address]Dr. Tadeo Smyth PLT 392 103/ul Normal 150-450 [facility] Comment on above: Performed By: #### C BC ####[facility] Yvnrqfwsvw3440 [place] [address]Dr. Tadeo Smyth RBC 4.60 106/ul Normal 4.20-5.40 [facility] Comment on above: Performed By: #### C BC ####[facility] Hxglttnfsb4771 [place] [address]Dr. Tadeo Smyth WBC 6.9 103/ul Normal 4.0-11.0 [facility] Comment on above: Performed By: #### C BC ####[facility] Sfclgfhzht[address] [place], [place] [address]Dr. Tadeo Smyth LIPASEon 11-27-2022 Lipase [Catalytic activity/Vol] 100.0 U/L Normal 73.0-393.0 [facility] Comment on above: Performed By: #### L VIJI HALL, CMP ####[facility] Vfisyuvdfl64[address] [place], [place] [address]Dr. Tadeo Smyth PROF 14(COMP METB)on 023 Albumin [Mass/Vol] 3.5 g/dL Normal 3.4-5.0 [facility] Comment on above: Performed By: #### L VIJI HALL, CMP ####[facility] Lafejaoqcl0976 [place] [address]Dr. Tadeo Smyth Albumin/Globulin [Mass ratio] 0.9 {ratio} Normal [facility] Comment on above: Performed By: #### L VIJI HALL, CMP ####[facility] Olzwddegvx[address] [place], [place] [address]Dr. Tadeo Smyth ALP [Catalytic activity/Vol] 166 U/L Critically high 46-116 [facility] Comment on above: Performed By: #### L VIJI HALL, CMP ####[facility] Ggvuhmgasw312[address] [place], [place] [address]Dr. Tadeo Smyth ALT [Catalytic activity/Vol] 25 U/L Normal 14-59 [facility] Comment on above: Performed By: #### L VIJI HALL, CMP ####[facility] Ofqyfiqkqv3634 [place] [address]Dr. Tadeo Smyth Anion gap [Moles/Vol] 12.4 mmol/L Normal [facility] Comment on above: Performed By: #### L VIJI HALL, CMP ####[facility] Zagbtsutwe6788 [place] [address]Dr. Tadeo Smyth AST [Catalytic activity/Vol] 18 U/L Normal 15-37 [facility] [place] [facility] Comment on above: Performed By: #### L VIJI HALL, CMP ####[facility] Amgevxckuo4992 [place] [address]Dr. Tadeo Smyth Bilirubin [Mass/Vol] 0.3 mg/dL Normal 0.2-1.0 [facility] Comment on above: Performed By: #### L VIJI HALL, CMP ####[facility] Vcxgsxjyyu1191 [place] [address]Dr. Tadeo Smyth Calcium [Mass/Vol] 9.1 mg/dL Normal 8.5-10.1 [facility] [place] [facility] Comment on above: Performed By: #### L VIJI HALL, CMP ####[facility] Owhwsoazaa25[address] [place] [address]Dr. Tadeo Smyth Chloride [Moles/Vol] 104 mmol/L Normal 98-107 [facility] Comment on above: Performed By: #### L VIJI HALL, CMP ####[facility] Fbzjggiuvt7745 [place] [address]Dr. Tadeo Smyth CO2 [Moles/Vol] 25.0 mmol/L Normal 21.0-32.0 [facility] Comment on above: Performed By: #### L VIJI HALL, CMP ####[facility] Vwecblcjzj5858 [place] [address]Dr. Tadeo Smyth Creatinine [Mass/Vol] 0.87 mg/dL Normal 0.55-1.02 [facility] Comment on above: Performed By: #### L VIJI HALL, CMP ####[facility] Umwsmiqrmy1915 [place] [address]Dr. Tadeo Smyth EGFR-AF KENYAN >60 Normal >=60 [facility] [place] [facility] Comment on above: Performed By: #### L VIJI HALL, CMP ####[facility] Oandmieoye1164 [place] [address]Dr. Tadeo Smyth EGFR-NON AF KENYAN >60 Normal >=60 [facility] [place] [facility] Comment on above: Performed By: #### L VIJI HALL, CMP ####[facility] Mxkessmtsr8349 [place] [address]Dr. Tadeo Smyth Globulin (S) [Mass/Vol] 3.9 g/dL Normal [facility] [place] [facility] Comment on above: Performed By: #### L VIJI HALL, CMP ####[facility] Aypfatcuhu[address] [place], [place] [address]Dr. Tadeo Smyth Glucose [Mass/Vol] 169 mg/dL Critically high 74-106 [facility] Comment on above: Performed By: #### L VIJI HALL, CMP ####[facility] Dqzcrtjssg6[address] [place], [place] [address]Dr. Tadeo Smyth Potassium [Moles/Vol] 3.4 mmol/L Critically low 3.5-5.1 [facility] [place] [facility] Comment on above: Performed By: #### L VIJI HALL, CMP ####[facility] Darhfbyfvb[address] [place], [place] [address]Dr. Tadeo Smyth Protein [Mass/Vol] 7.4 g/dL Normal 6.4-8.2 [facility] [place] [facility] Comment on above: Performed By: #### L VIJI HALL, CMP ####[facility] Zmlztprwzg[address] [place], [place] [address]Dr. Tadeo Smyth Sodium [Moles/Vol] 138 mmol/L Normal 136-145 [facility] Comment on above: Performed By: #### L VIJI HALL, CMP ####[facility] Sdsaqmojuu7079 [place] [address]Dr. Tadeo Smyth Urea nitrogen [Mass/Vol] 23.0 mg/dL Critically high 7.0-18.0 [facility] Comment on above: Performed By: #### L VIJI HALL, CMP ####[facility] [address]xsp[address] [place], [place] [address]YdNeo Smyth Urea nitrogen/Creatinine [Mass ratio] 26.4 mg/mg Normal [facility] [place] [facility] Comment on above: Performed By: #### L ISABEL, VIJI, CMP ####[facility] Xxaxtprkqv8[address] [place], [place] [address]Od. [address] CT enterographyon 11-04-2022 CT enterography [facility] [place] [address] CT Scan Report Signed Patient: Constantino Cardoso MR#: [id number] : 1970 Acct:[id number] Age/Sex: 52 / F ADM Date: 11/04/22 Loc: CT Room: Type: [facility] Attending Dr: Jennie Ayon MD Copies [...] Bateman Jr., D.O.11/04/2022 11:17 AM Dictation Location: [place] [address] Transcribed By: [facility] 11/04/22 1117 Dictated By: Tiburcio Bateman Jr, DO 11/04/22 1112 Signed By: 11/04/22 1117 Normal [facility] AMYLASEon 11-02-2022 Amylase [Catalytic activity/Vol] 40 U/L Normal 25-115 [facility] Comment on above: Performed By: #### L IPA, MG, CMP, VIJI ####[facility] Gkmhnnfkqm9827 [place] [id number]. Tadeo Smyth CBC AUTO DIFFon 11-02-2022 BASO # 0.0 103/ul Normal 0.0-0.1 [facility] [place] [facility] Comment on above: Performed By: #### C BC ####[facility] Btilwqeodp9236 [place] [address]Dr. Tadeo Smyth Basophils/100 WBC (Bld) 0.5 % Normal 0.2-2.0 [facility] Comment on above: Performed By: #### C BC ####[facility] Eubkftztrj2721 [place] [address]Dr. Tadeo Smyth EO # 0.1 103/ul Normal 0.0-0.7 [facility] Comment on above: Performed By: #### C BC ####[facility] Aahqepivgu0585 [place] [address]Dr. Tadeo Smyth Eosinophils/100 WBC (Bld) 2.8 % Normal 0.9-7.0 [facility] Comment on above: Performed By: #### C BC ####[facility] Nhqwuorlww2902 [place] [address]Dr. Tadeo Smyth Erythrocyte distribution width (RBC) [Ratio] 13.3 % Normal 11.0-15.0 [facility] Comment on above: Performed By: #### C BC ####[facility] Rxahxeqngz7344 [place] [address]Dr. Tadeo Smyth Hematocrit (Bld) [Volume fraction] 35.6 % Critically low 36.0-48.0 [facility] [place] [facility] Comment on above: Performed By: #### C BC ####[facility] Dmpflgzngi9[address] [place], [place] [address]Dr. Margotnicole Smyth Hemoglobin (Bld) [Mass/Vol] 11.3 g/dL Critically low 12.0-16.0 [facility] [place] [facility] Comment on above: Performed By: #### C BC ####[facility] Miwmofehqx33[address] [place], [place] [address]Dr. Tadeo Smyth IG # 0.01 10e3/ul Normal 0.00-0.03 [facility] [place] [facility] Comment on above: Performed By: #### C BC ####[facility] Wifpdywjct54[address] [place], [place] [address]Dr. Tadeo Smyth IG % 0.2 % Normal 0.0-0.5 [facility] [place] [facility] Comment on above: Performed By: #### C BC ####[facility] Rfdljercfz095[address] [place], [place] [address]Dr. Tadeo Smyth LYMPH # 1.5 103/ul Normal 1.2-3.8 [facility] Comment on above: Performed By: #### C BC ####[facility] Szfqmgroyf6530[address] [place], [place] [address]Dr. Tadeo Smyth Lymphocytes/100 WBC (Bld) 34.9 % Normal 20.5-60.0 [facility] Comment on above: Performed By: #### C BC ####[facility] Kxybwvedaf[address] [place], [place] [address]Dr. Tadeo Smyth MANUAL DIFF REQ NO Normal [facility] Comment on above: Performed By: #### C BC ####[facility] Gtmwakifbj103[address] [place], [place] [address]Dr. Tadeo Smyth MCH (RBC) [Entitic mass] 28.8 pg Normal 26.7-34.0 [facility] Comment on above: Performed By: #### C BC ####[facility] Wscmvphebo9928 [place] [id number]. Margotnicole Smyth MCHC (RBC) [Mass/Vol] 31.7 g/dL Normal 29.9-35.2 [facility] Comment on above: Performed By: #### C BC ####[facility] Wtjxpyorrn4625 [place] [id number]. Tadeo Smyth MCV (RBC) [Entitic vol] 90.8 fL Normal 81.0-99.0 [facility] Comment on above: Performed By: #### C BC ####[facility] Ibagyvasym[address] [place], [place] [address]Dr. Tadeo Smyth MONO # 0.3 103/ul Normal 0.3-0.8 [facility] Comment on above: Performed By: #### C BC ####[facility] Nhqoxlflum95[address] [place], [place] [address]Dr. Tadeo Smyth Monocytes/100 WBC (Bld) 6.9 % Normal 1.7-12.0 [facility] Comment on above: Performed By: #### C BC ####[facility] Oorqisevpd50[address] [place], [place] [address]Dr. Tadeo Smyth NEUT # 2.4 103/ul Normal 1.4-6.5 [facility] Comment on above: Performed By: #### C BC ####[facility] Utxuwtyvyr5319[address] [place], [place] [address]Dr. Tadeo Smyth Neutrophils/100 WBC (Bld) 54.7 % Normal 43.0-75.0 [facility] Comment on above: Performed By: #### C BC ####[facility] Rmomwonzsy3612[address] [place], [place] [address]Dr. Tadeo Smyth Platelet mean volume (Bld) [Entitic vol] 8.9 fL Critically low 9.5-13.5 [facility] Comment on above: Performed By: #### C BC ####[facility] Rcewegimcc9155[address] [place], [place] [address]Dr. Tadeo Smyth PLT 316 103/ul Normal 150-450 [facility] Comment on above: Performed By: #### C BC ####[facility] Odxkrluomx1095 [place] [address]Dr. Tadeo Smyth RBC 3.92 106/ul Critically low 4.20-5.40 [facility] [place] [facility] Comment on above: Performed By: #### C BC ####[facility] Cuscdqlpke2741 [place] [address]Dr. Tadeo Smyth WBC 4.4 103/ul Normal 4.0-11.0 [facility] [place] [facility] Comment on above: Performed By: #### C BC ####[facility] Spxxqhnief7993 [place] [address]Dr. Tadeo Smyth H PYLORI ANTIBODY IGGon 10-07 H. PYLORI IGG ABS 0.12 Index Value Normal 0.00-0.79 [facility] Comment on above: Result Comment: Nega tive <0.80 Equivocal 0.80 - 0.89 Positive >0.89 Performed By: #### H PYLLC ####[facility] Rpfzzfrcee080[address] [place], [place] [address]Dr. Tadeo Smyth LIPASEon 11-02-2022 Lipase [Catalytic activity/Vol] 58.0 U/L Critically low 73.0-393.0 [facility] [place] [facility] Comment on above: Performed By: #### L IPA, MG, CMP, VIJI ####[facility] Czivprkwnd[address] [place], [place] [address]Dr. Tadeo Smyth MAGNESIUMon 11-02-2022 Magnesium [Mass/Vol] 1.8 mg/dL Normal 1.8-2.4 [facility] [place] [facility] Comment on above: Performed By: #### L IPA, MG, CMP, VIJI ####[facility] Vhejmoijfl60[address] [place], [place] [address]Dr. Margotnicole Smyth PROF 14(COMP METB)on 023 Albumin [Mass/Vol] 3.2 g/dL Critically low 3.4-5.0 [facility] Comment on above: Performed By: #### L IPA, MG, CMP, VIJI ####[facility] Bvjdptnalv1026[address] [place], [place] [address]Dr. Tadeo Smyth Albumin/Globulin [Mass ratio] 1.0 {ratio} Normal [facility] [place] [facility] Comment on above: Performed By: #### L IPA, MG, CMP, VIJI ####[facility] Lrhlanaeyg3448 [place] [address]Dr. Tadeo Smyth ALP [Catalytic activity/Vol] 138 U/L Critically high 46-116 [facility] [place] [facility] Comment on above: Performed By: #### L IPA, MG, CMP, VIJI ####[facility] Qowiialbvm9706[address] [place], [place] [address]Dr. Tadeo Smyth ALT [Catalytic activity/Vol] 22 U/L Normal 14-59 [facility] Comment on above: Performed By: #### L IPA, MG, CMP, VIJI ####[facility] Xoikvsqbki[address] [place], [place] [address]Dr. Tadeo Smyth Anion gap [Moles/Vol] 10.0 mmol/L Normal [facility] Comment on above: Performed By: #### L IPA, MG, CMP, VIJI ####[facility] Fradapzgsg99[address] [place], [place] [address]Dr. Tadeo Smyth AST [Catalytic activity/Vol] 18 U/L Normal 15-37 [facility] Comment on above: Performed By: #### L IPA, MG, CMP, VIJI ####[facility] Rwmriqsuur4[address] [place], [place] [address]Dr. Tadeo Smyth Bilirubin [Mass/Vol] 0.5 mg/dL Normal 0.2-1.0 [facility] [place] [facility] Comment on above: Performed By: #### L IPA, MG, CMP, VIJI ####[facility] Luldpcdjdd25[address] [place], [place] [address]Dr. Tadeo Smyth Calcium [Mass/Vol] 8.9 mg/dL Normal 8.5-10.1 [facility] Comment on above: Performed By: #### L IPA, MG, CMP, VIJI ####[facility] Ppwrirrhxq6845 [place] [address]Dr. Tadeo Smyth Chloride [Moles/Vol] 107 mmol/L Normal 98-107 [facility] Comment on above: Performed By: #### L IPA, MG, CMP, VIJI ####[facility] Fsholvclnr3435 [place] [address]Dr. Tadeo Smyth CO2 [Moles/Vol] 28.8 mmol/L Normal 21.0-32.0 [facility] Comment on above: Performed By: #### L IPA, MG, CMP, VIJI ####[facility] Gpstyjbqsd1865 [place] [address]Dr. Tadeo Smyth Creatinine [Mass/Vol] 0.74 mg/dL Normal 0.55-1.02 [facility] Comment on above: Performed By: #### L IPA, MG, CMP, VIJI ####[facility] Fypjmuvpvc9591 [place] [address]Dr. Tadeo Haja EGFR-AF KENYAN >60 Normal >=60 [facility] Comment on above: Performed By: #### L IPA, MG, CMP, VIJI ####[facility] Fujbnnwtaa9766 [place] [address]Dr. Tadeo Smyth EGFR-NON AF KENYAN >60 Normal >=60 [facility] Comment on above: Performed By: #### L IPA, MG, CMP, VIJI ####[facility] Pnzqpvlomu0067 [place] [address]Dr. Tadeo Haja Globulin (S) [Mass/Vol] 3.3 g/dL Normal [facility] Comment on above: Performed By: #### L IPA, MG, CMP, VIJI ####[facility] Nzehrlewoh6969 [place] [address]Dr. Tadeo Smyth Glucose [Mass/Vol] 96 mg/dL Normal 74-106 [facility] Comment on above: Performed By: #### L IPA, MG, CMP, VIJI ####[facility] Iqjabnijbr6194 [place] [address]Dr. Margotnicole Smyth Potassium [Moles/Vol] 3.8 mmol/L Normal 3.5-5.1 [facility] Comment on above: Performed By: #### L IPA, MG, CMP, VIJI ####[facility] Zmxxvdezpu5776 [place] [address]Dr. Margotnicole Smyth Protein [Mass/Vol] 6.5 g/dL Normal 6.4-8.2 [facility] [place] [facility] Comment on above: Performed By: #### L IPA, MG, CMP, VIJI ####[facility] Texxegrzoz9[address] [place], [place] [address]Dr. Tadeo Smyth Sodium [Moles/Vol] 142 mmol/L Normal 136-145 [facility] Comment on above: Performed By: #### L IPA, MG, CMP, VIJI ####[facility] Ndqlxxlybu4880[address] [place], [place] [address]Dr. Tadeo Smyth Urea nitrogen [Mass/Vol] 8.0 mg/dL Normal 7.0-18.0 [facility] Comment on above: Performed By: #### L IPA, MG, CMP, VIJI ####[facility] Mfwvrnxrdn8[address] [place], [place] [address]Dr. Tadeo Smyth Urea nitrogen/Creatinine [Mass ratio] 10.8 mg/mg Normal [facility] Comment on above: Performed By: #### L IPA, MG, CMP, VIJI ####[facility] Snkyltrkhy500[address] [place], [place] [address]Dr. Tadeo Smyth AMMONIAon 11-01-2022 Ammonia (P) [Moles/Vol] 18 umol/L Normal 11-32 [facility] Comment on above: Performed By: #### A MM ####[facility] Uxamypcopf[address] [place], [place] [address]Dr. Tadeo Smyth AMYLASEon 11-01-2022 Amylase [Catalytic activity/Vol] 43 U/L Normal 25-115 [facility] Comment on above: Performed By: #### M G, VIJI, LIPA, CMP ####[facility] Vuosrdjiol9240[address] [place], [place] [address]Dr. Tadeo Smyth CBC AUTO DIFFon 11-01-2022 BASO # 0.0 103/ul Normal 0.0-0.1 [facility] Comment on above: Performed By: #### C BC ####[facility] Juwvsbatjr9[address] [place], [place] [address]Dr. Tadeo Smyth Basophils/100 WBC (Bld) 0.6 % Normal 0.2-2.0 [facility] Comment on above: Performed By: #### C BC ####[facility] Xujwbgceia[address] [place] [address]Dr. Tadeo Smyth EO # 0.1 103/ul Normal 0.0-0.7 [facility] Comment on above: Performed By: #### C BC ####[facility] Fgeqzzjrgi6564 [place] [address]Dr. Tadeo Smyth Eosinophils/100 WBC (Bld) 1.5 % Normal 0.9-7.0 [facility] Comment on above: Performed By: #### C BC ####[facility] Fmyqhkxsrd9209[address] [place], [place] [address]Dr. Tadeo Smyth Erythrocyte distribution width (RBC) [Ratio] 13.5 % Normal 11.0-15.0 [facility] [place] [facility] Comment on above: Performed By: #### C BC ####[facility] Fatjsyprtm7634[address] [place], [place] [address]Dr. Tadeo Smyth Hematocrit (Bld) [Volume fraction] 37.7 % Normal 36.0-48.0 [facility] [place] [facility] Comment on above: Performed By: #### C BC ####[facility] Wcatoedeau0[address] [place], [place] [address]Dr. Tadeo Smyth Hemoglobin (Bld) [Mass/Vol] 12.5 g/dL Normal 12.0-16.0 [facility] [place] [facility] Comment on above: Performed By: #### C BC ####[facility] Yaprobzgrr[address] [place], [place] [address]Dr. Margotnicole Smyth IG # 0.02 10e3/ul Normal 0.00-0.03 [facility] Comment on above: Performed By: #### C BC ####[facility] Dybszilzdx3330[address] [place], [place] [address]Dr. Tadeo Smyth IG % 0.4 % Normal 0.0-0.5 [facility] Comment on above: Performed By: #### C BC ####[facility] Ptyfjkjgxw64[address] [place], [place] [address]Dr. Tadeo Smyth LYMPH # 1.3 103/ul Normal 1.2-3.8 [facility] Comment on above: Performed By: #### C BC ####[facility] Pzhfnyhjub1048 [place] [address]Dr. Tadeo Haja Lymphocytes/100 WBC (Bld) 23.9 % Normal 20.5-60.0 [facility] [place] [facility] Comment on above: Performed By: #### C BC ####[facility] Zbgbwabrzi1316 [place] [address]Dr. Tadeo Smyth MANUAL DIFF REQ NO Normal [facility] Comment on above: Performed By: #### C BC ####[facility] Gvbaxfbbjr9050 [place] [id number]. Margotnicole Smyth MCH (RBC) [Entitic mass] 29.8 pg Normal 26.7-34.0 [facility] Comment on above: Performed By: #### C BC ####[facility] Wjidfvdtiu[address] [place], [place] [address]Dr. Tadeo Smyth MCHC (RBC) [Mass/Vol] 33.2 g/dL Normal 29.9-35.2 [facility] [place] [facility] Comment on above: Performed By: #### C BC ####[facility] Waqax[address] [place], [place] [address]Dr. Margotnicole Smyth MCV (RBC) [Entitic vol] 89.8 fL Normal 81.0-99.0 [facility] Comment on above: Performed By: #### C BC ####[facility] [address]fl[address] [place], [place] [address]Dr. Tadeo Smyth MONO # 0.3 103/ul Normal 0.3-0.8 [facility] Comment on above: Performed By: #### C BC ####[facility] Ywodfpucdh[address] [place], [place] [address]Dr. Tadeo Smyth Monocytes/100 WBC (Bld) 5.2 % Normal 1.7-12.0 [facility] Comment on above: Performed By: #### C BC ####[facility] Qklcigyqmx[address] [place], [place] [address]Dr. Tadeo Smyth NEUT # 3.6 103/ul Normal 1.4-6.5 [facility] Comment on above: Performed By: #### C BC ####[facility] [address] [place] [address]Dr. Tadeo Smyth Neutrophils/100 WBC (Bld) 68.4 % Normal 43.0-75.0 [facility] Comment on above: Performed By: #### C BC ####[facility] [address]ort[address]jpx[address] [place] [address]Dr. Tadeo Smyth Platelet mean volume (Bld) [Entitic vol] 9.0 fL Critically low 9.5-13.5 [facility] Comment on above: Performed By: #### C BC ####[facility] Tljxointnb[address] [place], [place] [address]Dr. Tadeo Smyth PLT 356 103/ul Normal 150-450 [facility] Comment on above: Performed By: #### C BC ####[facility] Tzyhgolqti[address] [place], [place] [address]Dr. Tadeo Smyth RBC 4.20 106/ul Normal 4.20-5.40 [facility] Comment on above: Performed By: #### C BC ####[facility] Yvznszegmb[address] [place], [place] [address]Dr. Tadeo Smyth WBC 5.2 103/ul Normal 4.0-11.0 [facility] Comment on above: Performed By: #### C BC ####[facility] Dkpjnqiasr[address] [place], [place] [address]Dr. Tadeo Smyth CT ABD/PELV W CONon 11-01-[address] ABD/PELV W CON Normal [facility] CULTURE BLOODon 11-01-2022 Microscopic examination of blood, culture Culture Observations: NO GROWTH AT 5 DAYS. Isolate 1 BC_BA_NA Normal [facility] Comment on above: Performed By: #### B LDCX2 ####[facility] [address]vhylyayfn[address] [place], [place] [address]Dr. Tadeo Smyth Performed By: #### B LDCX1 ####[facility] Uieyhmkbro[address] [place], [place] [address]Dr. Tadeo Smyth CULTURE URINEon 11-01-2022 CULTURE URINE Culture Observations : LIGHT GROWTH OF MIXED GENITAL SINTIA. NO POTENTIAL PATHOGENS SEEN. Normal [facility] Comment on above: Performed By: #### U RCX ####[facility] Trkvnpmzlj994[address] [place], [place] [address]Dr. Tadeo Smyth Covid-19 PCR (CVDTB)on 10-07 SARS-CoV-2 (COVID-19) RNA CHEN+probe Ql (Unsp spec) Not detected Normal NOT DETECTED [facility] Comment on above: Result Comment: When [...] for this test is supported by the [place] of Health and Human Service's declaration that [...] be used). Performed By: #### C VDTBH ####[facility] Frorpdnmul214[address] [place], [place] [address]Dr. Tadeo Haja LACTATE/LACTIC ACIDon 2022 Lactate [Moles/Vol] 0.7 mmol/L Normal 0.4-1.9 [facility] Comment on above: Performed By: #### L ACT ####[facility] Qjxninpwed[address] [place], [place] [address]Dr. Margotnicole Smyth LIPASEon 11-01-2022 Lipase [Catalytic activity/Vol] 58.0 U/L Critically low 73.0-393.0 [facility] Comment on above: Performed By: #### M G, VIJI, LIPA, CMP ####[facility] Qlmiqrnggp[address] [place], [place] [address]Dr. Margotnicole Smyth MAGNESIUMon 11-01-2022 Magnesium [Mass/Vol] 2.0 mg/dL Normal 1.8-2.4 [facility] Comment on above: Performed By: #### M Ayan, VIJI, LIPA, CMP ####[facility] [address]onzbqe[address] [place] [address]Dr. Tadeo Smyth PROF 14(COMP METB)on 023 Albumin [Mass/Vol] 3.6 g/dL Normal 3.4-5.0 [facility] Comment on above: Performed By: #### M G, VIJI, LIPA, CMP ####[facility] Hpydmuwqkg[address] [place] [address]Dr. Tadeo Smyth Albumin/Globulin [Mass ratio] 1.0 {ratio} Normal [facility] Comment on above: Performed By: #### M G, VIJI, LIPA, CMP ####[facility] Qmfhtcsvuk[address] [place] [address]Dr. Tadeo Smyth ALP [Catalytic activity/Vol] 164 U/L Critically high 46-116 [facility] Comment on above: Performed By: #### M G, VIJI, LIPA, CMP ####[facility] Z[address]sewwsh[address] [place] [address]Dr. Tadeo Smyth ALT [Catalytic activity/Vol] 22 U/L Normal 14-59 [facility] Comment on above: Performed By: #### M G, VIJI, LIPA, CMP ####[facility] Hxkz[address]nv[address] [place] [address]Dr. Tadeo Smyth Anion gap [Moles/Vol] 11.5 mmol/L Normal [facility] Comment on above: Performed By: #### M G, VIJI, LIPA, CMP ####[facility] Pfsmr[address]lwy[address] [place] [address]Dr. Tadeo Smyth AST [Catalytic activity/Vol] 17 U/L Normal 15-37 [facility] Comment on above: Performed By: #### M G, VIJI, LIPA, CMP ####[facility] Fz[address]jloabh[address] [place] [address]Dr. Tadeo Smyth Bilirubin [Mass/Vol] 0.4 mg/dL Normal 0.2-1.0 [facility] Comment on above: Performed By: #### M Ayan, VIJI LIPA, CMP ####[facility] [address]jeypwrgrc[address] [place] [address]Dr. Tadeo Smyth Calcium [Mass/Vol] 9.1 mg/dL Normal 8.5-10.1 [facility] Comment on above: Performed By: #### M Ayan, VIJI LIPA, CMP ####[facility] Hngwmmebxp[address] [place], [place] [address]Dr. Tadeo Smyth Chloride [Moles/Vol] 105 mmol/L Normal 98-107 [facility] Comment on above: Performed By: #### M Ayan, VIJI LIPA, CMP ####[facility] Iqqguryxbv[address] [place], [place] [address]Dr. Tadeo Smyth CO2 [Moles/Vol] 27.6 mmol/L Normal 21.0-32.0 [facility] Comment on above: Performed By: #### Clementina Botello, VIJI LIPA, CMP ####[facility] Ebdkegghtv[address] [place], [place] [address]Dr. Tadeo Smyth Creatinine [Mass/Vol] 0.72 mg/dL Normal 0.55-1.02 [facility] Comment on above: Performed By: #### M Ayan, VIJI, LIPA, CMP ####[facility] Gsywxjmczb[address] [place], [place] [address]Dr. Tadeo Smyth EGFR-AF KENYAN >60 Normal >=60 [facility] Comment on above: Performed By: #### M Ayan, VIJI, LIPA, CMP ####[facility] Ofkpggndyr[address] [place], [place] [address]Dr. Tadeo Smyth EGFR-NON AF KENYAN >60 Normal >=60 [facility] Comment on above: Performed By: #### M Ayan, VIJI, LIPA, CMP ####[facility] [address]qls[address] [place] [address]Dr. Tadeo Smyth Globulin (S) [Mass/Vol] 3.6 g/dL Normal [facility] Comment on above: Performed By: #### M G, VIJI, LIPA, CMP ####[facility] Imqaxpyaer[address] [place] [address]Dr. Tadeo Smyth Glucose [Mass/Vol] 100 mg/dL Normal 74-106 [facility] Comment on above: Performed By: #### M G, VIJI, LIPA, CMP ####[facility] Dridizfiii[address] [place] [address]Dr. Tadeo Smyth Potassium [Moles/Vol] 4.1 mmol/L Normal 3.5-5.1 [facility] Comment on above: Performed By: #### M G, VIJI, LIPA, CMP ####[facility] Xvnb[address]byyv[address] [place] [address]Dr. Tadeo Smyth Protein [Mass/Vol] 7.2 g/dL Normal 6.4-8.2 [facility] Comment on above: Performed By: #### M G, VIJI, LIPA, CMP ####[facility] Zcqangdcnb[address] [place] [address]Dr. Tadeo Smyth Sodium [Moles/Vol] 140 mmol/L Normal 136-145 [facility] Comment on above: Performed By: #### M G, VIJI, LIPA, CMP ####[facility] Cjpubligxm[address] [place] [address]Dr. Tadeo Smyth Urea nitrogen [Mass/Vol] 15.0 mg/dL Normal 7.0-18.0 [facility] Comment on above: Performed By: #### M G, IVJI, LIPA, CMP ####[facility] Xwztxjepex[address] [place] [address]Dr. Margotnicole Haja Urea nitrogen/Creatinine [Mass ratio] 20.8 mg/mg Normal [facility] Comment on above: Performed By: #### M G, VIJI, LIPA, CMP ####[facility] [address]nelhcnato[address] [place] [address]Dr. Tadeo Smyth UA RANDOM W/MICROSCOPICon BACTERIA TRACE Abnormal NONE SEEN [facility] Comment on above: Performed By: #### U AMIC ####[facility] Mfka[address]wfpe[address] [place] [address]Dr. Tadeo Smyth Bilirubin Ql (U) Negative Normal NEGATIVE [facility] Comment on above: Performed By: #### U AMIC ####[facility] Xuvwtizgxy[address] [place], [place] [address]Dr. Tadeo Smyth CAST NONE SEEN Normal NONE SEEN [facility] Comment on above: Performed By: #### U AMIC ####[facility] Szwrndvsfe[address] [place], [place] [address]Dr. Tadeo Smyth Clarity (U) CLEAR Normal CLEAR [facility] Comment on above: Performed By: #### U AMIC ####[facility] O[address]oglazoxh[address] [place], [place] [address]Dr. Tadeo Smyth Color (U) LT. YELLOW Normal YELLOW [facility] Comment on above: Performed By: #### U AMIC ####[facility] Wgkjywvxvw[address] [place], [place] [address]Dr. Tadeo Smyth Crystals LM Nom (Urine sed) NONE SEEN Normal NONE SEEN [facility] Comment on above: Performed By: #### U AMIC ####[facility] Razsjybljs[address] [place], [place] [address]Dr. Tadeo Smyth Epithelial cells LM Ql (Urine sed) RARE Normal NONE SEEN /RARE [facility] Comment on above: Performed By: #### U AMIC ####[facility] Djweaoaqet[address] [place], [place] [address]Dr. Tadeo Smyth Glucose Ql (U) Negative Normal NEGATIVE [facility] Comment on above: Performed By: #### U AMIC ####[facility] Umfnsxncmg[address] [place], [place] [address]Dr. Tadeo Smyth Hemoglobin Ql (U) TRACE-LYSED Abnormal NEGATIVE [facility] Comment on above: Performed By: #### U AMIC ####[facility] Vurqjwynml[address] [place], [place] [address]Dr. Tadeo Smyth Ketones Ql (U) Negative Normal NEGATIVE [facility] Comment on above: Performed By: #### U AMIC ####[facility] Szayscikjm6[address] [place], [place] [address]Dr. Tadeo Smyth LEUKOCYTES Negative Normal NEGATIVE [facility] Comment on above: Performed By: #### U AMIC ####[facility] Wfdzfbjajn[address] [place] [address]Dr. Margotnicole Haja MUCOUS NONE SEEN Normal NONE SEEN [facility] Comment on above: Performed By: #### U AMIC ####[facility] Tkevfwltfk[address] [place] [address]Dr. Tadeo Smyth Nitrite Ql (U) Negative Normal NEGATIVE [facility] Comment on above: Performed By: #### U AMIC ####[facility] Wgsuqdykzd[address] [place], [place] [address]Dr. Tadeo Smyth pH (U) 6.0 [pH] Normal 5-9 [facility] Comment on above: Performed By: #### U AMIC ####[facility] Wugbpxglho[address] [place], [place] [address]Dr. Tadeo Smyth RBC 0-2 Normal 0-2 [facility] Comment on above: Performed By: #### U AMIC ####[facility] Ykvlurlltn[address] [place], [place] [address]Dr. Tadeo Smyth SPEC GRAVITY 1.010 Normal 1.005-<=1.0 25 [facility] Comment on above: Performed By: #### U AMIC ####[facility] Cxbfeobnxl[address] [place], [place] [address]Dr. Tadeo Smyth UA PROTEIN Negative Normal NEGATIVE/ TRACE [facility] Comment on above: Performed By: #### U AMIC ####[facility] Ytmejoksmx[address] [place], [place] [address]Dr. Tadeo Smyth Urobilinogen Qn (U) 0.2 {Benito'U}/dL Normal 0.2 - 1. 0 [facility] Comment on above: Performed By: #### U AMIC ####[facility] Rtxwagcauz[address] [place], [place] [address]Dr. Tadeo Smyth WBC 0-2 Abnormal NONE SEEN [facility] Comment on above: Performed By: #### U AMIC ####[facility] Wzivckpnzm[address] [place], [place] [address]Dr. Tadeo Smyth Activated partial thrombopla stin time (aPTT) in platelet poor plasma by coagulation aOrdered By: Conner Griffith on 10-26-2022 aPTT Coag (PPP) [Time] 30.8 s 25.1-36.5 [facility] Albumin [Mass/volume] in Ser um or PlasmaOrdered By: Conner Griffith on 10-26-2022 Albumin [Mass/Vol] 3.6 g/dL 3.2-5.5 [facility] Automated erythrocytes count in urine sediment (number/area)Ordered By: Conner Griffith on 10-26-2022 RBC Auto (Urine sed) [#/Area] 0-1 [HPF] 0-4 [facility] Automated leukocytes count i n urine sediment (number/area)Ordered By: Conner Griffith on 10-26-2022 WBC Auto (Urine sed) [#/Area] None seen [HPF] 0-4 [facility] Basophils Auto (Bld) [#/Vol] Ordered By: Conner Griffith on 10-26-2022 Basophils (Bld) [#/Vol] 0.0 10*3/uL 0.0-0.2 [facility] Basophils/100 WBC Auto (Bld) Ordered By: Conner Griffith on 10-26-2022 Basophils/100 WBC (Bld) 0.6 % . [facility] Bilirubin Test strip Ql (U)O rdered By: Conner Griffith on 10-26-2022 Bilirubin Ql (U) Negative Negative [facility] CT abdomen pelvis w conon CT abdomen pelvis w con [place] [address] CT Scan Report Signed Patient: Constantino Cardoso MR#: [id number] : 1970 Acct:[id number] Age/Sex: 52 / F ADM Date: 10/26/22 Loc: ER Room: Type: [facility] ER Attending Dr: Copies to: Conner [...] Columba Domínguez M.D.10/26/2022 7:46 AM Dictation Location: [place] [address] Transcribed By: [facility] 10/26/22 0746 Dictated By: Columba Domínguez MD 10/26/22 0738 Signed By: 10/26/22 0746 Normal [facility] Color Auto (U)Ordered By: Kevin Griffith on 10-26-2022 Color (U) Yellow Yellow [facility] Complete Blood Count Auto Di ffon 10-26-2022 Basophils (Bld) [#/Vol] 0.0 10*3/uL Normal 0.0-0.2 [facility] Comment on above: Result Comment: PERF ORMED BY: [place] [address] PATHOLOGIST [employer] ROOSEVELT KEYES M.D. Performed By: #### H EPATIC, CBC, BMP, LIPASE #### [address] Basophils/100 WBC (Bld) 0.6 % Normal . [facility] Comment on above: Performed By: #### H EPATIC, CBC, BMP, LIPASE #### [address] Eosinophils (Bld) [#/Vol] 0.2 10*3/uL Normal 0.0-0.45 [facility] Comment on above: Performed By: #### H EPATIC, CBC, BMP, LIPASE #### [address] Eosinophils/100 WBC (Bld) 3.3 % Normal . [facility] Comment on above: Performed By: #### H EPATIC, CBC, BMP, LIPASE #### [address] Erythrocyte distribution width (RBC) [Ratio] 14.5 % Normal 11.9-15.3 [facility] Comment on above: Performed By: #### H EPATIC, CBC, BMP, LIPASE #### [address] Hematocrit (Bld) [Volume fraction] 36.7 % Normal 34.0-46.4 [facility] Comment on above: Performed By: #### H EPATIC, CBC, BMP, LIPASE #### [address] Hemoglobin (Bld) [Mass/Vol] 12.1 g/dL Normal 11.8-15.4 [facility] Comment on above: Performed By: #### H EPATIC, CBC, BMP, LIPASE #### [address] Lymphocytes (Bld) [#/Vol] 1.9 10*3/uL Normal 1.00-4.8 [facility] Comment on above: Performed By: #### H EPATIC, CBC, BMP, LIPASE #### [address] Lymphocytes/100 WBC (Bld) 29.7 % Normal . [facility] Comment on above: Performed By: #### H EPATIC, CBC, BMP, LIPASE #### [address] MCH (RBC) [Entitic mass] 29.3 pg Normal 24.7-34.3 [facility] Comment on above: Performed By: #### H EPATIC, CBC, BMP, LIPASE #### [address] MCV (RBC) [Entitic vol] 88.5 fL Normal 80-100 [facility] Comment on above: Performed By: #### H EPATIC, CBC, BMP, LIPASE #### [address] Mean Corpuscular HGB Conc 33.1 g/dL Normal 32.0-35.0 [facility] Comment on above: Performed By: #### H EPATIC, CBC, BMP, LIPASE #### [address] Monocytes (Bld) [#/Vol] 0.4 10*3/uL Normal 0.0-0.8 [facility] Comment on above: Performed By: #### H EPATIC, CBC, BMP, LIPASE #### [address] Monocytes/100 WBC (Bld) 16.27 % Normal 0.00-20.00 [facility] Comment on above: Performed By: #### H EPATIC, CBC, BMP, LIPASE #### [address] Monocytes/100 WBC (Bld) 7.1 % Normal . [facility] Comment on above: Performed By: #### H EPATIC, CBC, BMP, LIPASE #### [address] Neutrophils (Bld) [#/Vol] 3.7 10*3/uL Normal 1.8-7.7 [facility] Comment on above: Performed By: #### H EPATIC, CBC, BMP, LIPASE #### [address] Neutrophils/100 WBC (Bld) 59.3 % Normal . [facility] Comment on above: Performed By: #### H EPATIC, CBC, BMP, LIPASE #### [address] NRBC% 0.3 /100{WBC} Normal 0-0.5 [facility] Comment on above: Performed By: #### H EPATIC, CBC, BMP, LIPASE #### [address] Platelet mean volume (Bld) [Entitic vol] 7.5 fL Normal 6.3-10.7 [facility] Comment on above: Performed By: #### H EPATIC, CBC, BMP, LIPASE #### [address] Platelets (Bld) [#/Vol] 379 10*3/uL Normal 150-450 [facility] Comment on above: Performed By: #### H EPATIC, CBC, BMP, LIPASE #### [address] RBC (Bld) [#/Vol] 4.14 10*6/uL Normal 3.60-5.00 [facility] Comment on above: Performed By: #### H EPATIC, CBC, BMP, LIPASE #### [address] WBC (Bld) [#/Vol] 6.3 10*3/uL Normal 3.8-11.6 [facility] Comment on above: Performed By: #### H EPATIC, CBC, BMP, LIPASE #### [address] [place] [address] [place] [facility] miranda 10-26-2022 Albumin [Mass/Vol] 3.6 g/dL Normal 3.2-5.5 [facility] Comment on above: Performed By: #### H EPATIC, CBC, BMP, LIPASE #### [facility] [address] Albumin/Globulin [Mass ratio] 1.1 {ratio} Normal [facility] Comment on above: Performed By: #### H EPATIC, CBC, BMP, LIPASE #### [facility] [address] ALP [Catalytic activity/Vol] 121 U/L High 32-92 [facility] Comment on above: Performed By: #### H EPATIC, CBC, BMP, LIPASE #### [facility] [address] [place] [address] ALT [Catalytic activity/Vol] 18 U/L Normal 10-60 [facility] Comment on above: Performed By: #### H EPATIC, CBC, BMP, LIPASE #### [facility] [address] [place] [address] Anion gap [Moles/Vol] 11.3 mmol/L Normal 6.0-15.0 [facility] Comment on above: Performed By: #### H EPATIC, CBC, BMP, LIPASE #### [facility] [address] [place] [address] AST [Catalytic activity/Vol] 19 U/L Normal 10-42 [facility] Comment on above: Performed By: #### H EPATIC, CBC, BMP, LIPASE #### [facility] [address] [place] [address] Bilirubin [Mass/Vol] 0.4 mg/dL Normal 0.3-1.[address] [facility] Comment on above: Performed By: #### H EPATIC, CBC, BMP, LIPASE #### [facility] [address] [place] [address] Calcium [Mass/Vol] 8.9 mg/dL Normal 8.2-10.2 [facility] Comment on above: Performed By: #### H EPATIC, CBC, BMP, LIPASE #### [address] Chloride [Moles/Vol] 108 mmol/L Normal 95-[address] [facility] Comment on above: Performed By: #### H EPATIC, CBC, BMP, LIPASE #### [address] CO2 [Moles/Vol] 25.1 mmol/L Normal 22.0-30.0 [facility] Comment on above: Performed By: #### H EPATIC, CBC, BMP, LIPASE #### [address] Creatinine [Mass/Vol] 0.81 mg/dL Normal 0.44-1.03 [facility] Comment on above: Performed By: #### H EPATIC, CBC, BMP, LIPASE #### [address] Creatinine Clr Calc Pharmacy 93.01 [facility] Comment on above: Performed By: #### H EPATIC, CBC, BMP, LIPASE #### [address] Estimated GFR ( Roberto > 60 [facility] Comment on above: Result Comment: GFR estimated reference range: According to KDOQI guidelines, <60 ml/min/1.73m2 is sufficient to diagnose a patient with chronic kidney disease. Performed By: #### H EPATIC, CBC, BMP, LIPASE #### [address] Estimated GFR (Non- Am > 60 [facility] Comment on above: Performed By: #### H EPATIC, CBC, BMP, LIPASE #### [address] Globulin (S) [Mass/Vol] 3.2 g/dL [facility] Comment on above: Performed By: #### H EPATIC, CBC, BMP, LIPASE #### [address] Glucose [Mass/Vol] 95 mg/dL Normal 70-100 [facility] Comment on above: Result Comment: [facility] Glucose Reference Range is dependent on time and content of last meal. Glucose of more than 200 mg/dL in a nonstressed, ambulatory subject supports the diagnosis of Diabetes Mellitus. ADA recommended reference range Performed By: #### H EPATIC, CBC, BMP, LIPASE #### [facility] [address] Potassium [Moles/Vol] 3.4 mmol/L Low 3.5-5.1 [facility] Comment on above: Performed By: #### H EPATIC, CBC, BMP, LIPASE #### [address] Protein [Mass/Vol] 6.8 g/dL Normal 6.1-7.9 [facility] Comment on above: Performed By: #### H EPATIC, CBC, BMP, LIPASE #### [address] Sodium [Moles/Vol] 141 mmol/L Normal 136-146 [facility] Comment on above: Performed By: #### H EPATIC, CBC, BMP, LIPASE #### [address] Urea nitrogen [Mass/Vol] 18 mg/dL Normal 9-23 [facility] Comment on above: Performed By: #### H EPATIC, CBC, BMP, LIPASE #### [address] Creatinine and Glomerular fi ltration rate.predicted panel (S/P/Bld)Ordered By: Conner Griffith on 10-26-2022 Creatinine [Mass/Vol] 0.81 mg/dL 0.44-1.03 [facility] Dipstick and Microscopicon 0 10-26-2022 Appearance (U) Clear Normal Clear [facility] Comment on above: Order Comment: Name Collection Type:: Clean-Voided Midstream Performed By: #### H EPATIC, CBC, BMP, LIPASE #### [address] Bacteria,Urine None Seen Normal None Seen [facility] Comment on above: Order Comment: Name Collection Type:: Clean-Voided Midstream Performed By: #### H EPATIC, CBC, BMP, LIPASE #### [facility] [address] [place] [address] Bilirubin,Urine Negative Normal Negative [facility] Comment on above: Order Comment: Name Collection Type:: Clean-Voided Midstream Performed By: #### H EPATIC, CBC, BMP, LIPASE #### [facility] [address] [place] [address] Color (U) Yellow Normal Yellow [facility] Comment on above: Order Comment: Name Collection Type:: Clean-Voided Midstream Performed By: #### H EPATIC, CBC, BMP, LIPASE #### [address] Glucose Ql (U) Normal Normal Normal [facility] Comment on above: Order Comment: Name Collection Type:: Clean-Voided Midstream Performed By: #### H EPATIC, CBC, BMP, LIPASE #### [address] Hyaline Casts,Urine None Seen Normal 0-8 [facility] Comment on above: Order Comment: Name Collection Type:: Clean-Voided Midstream Result Comment: PERF ORMED BY: [place] [address] PATHOLOGIST [employer] ROOSEVELT KEYES M.D. Performed By: #### H EPATIC, CBC, BMP, LIPASE #### [facility] [address] [place] [address] Ketones Ql (U) Negative Normal Negative [facility] Comment on above: Order Comment: Name Collection Type:: Clean-Voided Midstream Performed By: #### H EPATIC, CBC, BMP, LIPASE #### [facility] [address] [place] [address] Leukocyte esterase Test strip Ql (U) 1+ High Negative [facility] Comment on above: Order Comment: Name Collection Type:: Clean-Voided Midstream Performed By: #### H EPATIC, CBC, BMP, LIPASE #### [address] Nitrite,Urine Negative Normal Negative [facility] Comment on above: Order Comment: Name Collection Type:: Clean-Voided Midstream Performed By: #### H EPATIC, CBC, BMP, LIPASE #### [address] Occult Blood,Urine Negative Normal Negative [facility] Comment on above: Order Comment: Name Collection Type:: Clean-Voided Midstream Result Comment: PERF ORMED BY: [place] [address] PATHOLOGIST [employer] ROOSEVELT KEYES M.D. Performed By: #### H EPATIC, CBC, BMP, LIPASE #### [address] pH (U) 6.5 [pH] Normal 5.0-9.0 [facility] Comment on above: Order Comment: Name Collection Type:: Clean-Voided Midstream Performed By: #### H EPATIC, CBC, BMP, LIPASE #### [address] Protein,Urine Negative Normal Negative [facility] Comment on above: Order Comment: Name Collection Type:: Clean-Voided Midstream Performed By: #### H EPATIC, CBC, BMP, LIPASE #### [address] RBC LM.HPF (Urine sed) [#/Area] 0 /[HPF] Normal 0-4 [facility] Comment on above: Order Comment: Name Collection Type:: Clean-Voided Midstream Performed By: #### H EPATIC, CBC, BMP, LIPASE #### [address] Specificy Hundred,Urine 1.019 Normal 1.001-1.030 [facility] Comment on above: Order Comment: Name Collection Type:: Clean-Voided Midstream Performed By: #### H EPATIC, CBC, BMP, LIPASE #### [address] [address] [place] Squamous Epithelial Cell,Urine 1-2 Normal 0-2 [facility] Comment on above: Order Comment: Name Collection Type:: Clean-Voided Midstream Performed By: #### H EPATIC, CBC, BMP, LIPASE #### [facility] [address] Urobilinogen,Urine Normal Normal Normal [facility] Comment on above: Order Comment: Name Collection Type:: Clean-Voided Midstream Performed By: #### H EPATIC, CBC, BMP, LIPASE #### [facility] [address] WBC,Urine None Seen Normal 0-4 [facility] Comment on above: Order Comment: Name Collection Type:: Clean-Voided Midstream Performed By: #### H EPATIC, CBC, BMP, LIPASE #### [facility] [address] [place] [address] Eosinophils Auto (Bld) [#/Vo l]Ordered By: Conner Griffith on 10-26-2022 Eosinophils (Bld) [#/Vol] 0.2 10*3/uL 0.0-0.45 [facility] Eosinophils/100 WBC Auto (Bl d)Ordered By: Conner Griffith on 10-26-2022 Eosinophils/100 WBC (Bld) 3.3 % . [facility] Erythrocyte distribution wid th Auto (RBC) [Ratio]Ordered By: Conner Griffith on 10-26-2022 Erythrocyte distribution width (RBC) [Ratio] 14.5 % 11.9-15.3 [facility] Estimated glomerular filtrat ion rate (GFR) non- AmericanOrdered By: Conner Griffith on 10-26-2022 GFR/1.73 sq M.predicted among non-blacks MDRD (S/P/Bld) [Vol rate/Area] > 60 mL/Min [facility] Globulin Calc (S) [Mass/Vol] Ordered By: Conner Griffith on 10-26-2022 Globulin (S) [Mass/Vol] 3.2 g/dL [facility] Hematocrit Auto (Bld) [Volum e fraction]Ordered By: Conner Griffith on 10-26-2022 Hematocrit (Bld) [Volume fraction] 36.7 % 34.0-46.4 [facility] Hemoglobin [Mass/volume] in BloodOrdered By: Conner Griffith on 10-26-2022 Hemoglobin (Bld) [Mass/Vol] 12.1 g/dL 11.8-15.4 [facility] Ketones Auto test strip (U) [Mass/Vol]Ordered By: Conner Griffith on 10-26-2022 Ketones (U) [Mass/Vol] Negative Negative [facility] Laboratory - Chemistry and C hemistry - challengeOrdered By: Conner Griffith on 10-26-2022 Lipase [Catalytic activity/Vol] 37.0 U/L [facility] Laboratory - CoagulationOrde red By: Conner Griffith on 10-26-2022 PT Coag (PPP) [Time] 10.6 s 9.0-12.[address] [facility] Laboratory - UrinalysisOrder ed By: Conner Griffith on 10-26-2022 Hyaline casts LM Ql (Urine sed) None seen [LPF] 0-8 [facility] Lactic Acidon 10-26-2022 Lactate [Moles/Vol] 1.0 mmol/L Normal 0.5-2.2 [facility] Comment on above: Result Comment: PERF ORMED BY: [place] [address] PATHOLOGIST [employer] ROOSEVELT KEYES M.D. Performed By: #### H EPATIC, CBC, BMP, LIPASE #### [address] Leukocytes [#/volume] correc jun for nucleated erythrocytes in Blood by Automated counOrdered By: Conner rGiffith on 10-26-2022 WBC corrected for nucl RBC Auto (Bld) [#/Vol] 6.3 10*3/uL 3.8-11.6 [facility] Lipaseon 10-26-2022 Lipase [Catalytic activity/Vol] 37.0 U/L Normal [facility] Comment on above: Result Comment: PERF ORMED BY: [address] [id number] PATHOLOGIST [employer] ROOSEVELT KEYES M.D. Performed By: #### H EPATIC, CBC, BMP, LIPASE #### [facility] [address] Lymphocytes Auto (Bld) [#/Vo l]Ordered By: Conner Griffith on 10-26-2022 Lymphocytes (Bld) [#/Vol] 1.9 10*3/uL 1.00-4.8 [facility] Lymphocytes/100 WBC Auto (Bl d)Ordered By: Conner Griffith on 10-26-2022 Lymphocytes/100 WBC (Bld) 29.7 % . [facility] MCH Auto (RBC) [Entitic mass ]Ordered By: Conner Griffith on 10-26-2022 MCH (RBC) [Entitic mass] 29.3 pg 24.7-34.3 [facility] MCHC Auto (RBC) [Mass/Vol]Or dered By: Conner Griffith on 10-26-2022 MCHC (RBC) [Mass/Vol] 33.1 g/dL 32.0-35.0 [facility] MCV Auto (RBC) [Entitic vol] Ordered By: Conner Griffith on 10-26-2022 MCV (RBC) [Entitic vol] 88.5 fL 80-100 [facility] Monocyte distribution width [Entitic volume] in Blood by AutomatedOrdered By: Conner Griffith on 10-26-2022 Monocyte distribution width Auto (Bld) [Entitic vol] 16.27 % 0.00-20.00 [facility] Monocytes Auto (Bld) [#/Vol] Ordered By: Conner Griffith on 10-26-2022 Monocytes (Bld) [#/Vol] 0.4 10*3/uL 0.0-0.8 [facility] Monocytes/100 WBC Auto (Bld) Ordered By: Conner Griffith on 10-26-2022 Monocytes/100 WBC (Bld) 7.1 % . [facility] Neutrophils Auto (Bld) [#/Vo l]Ordered By: Conner Griffith on 10-26-2022 Neutrophils (Bld) [#/Vol] 3.7 10*3/uL 1.8-7.7 [facility] Neutrophils/100 WBC Auto (Bl d)Ordered By: Conner Griffith on 10-26-2022 Neutrophils/100 WBC (Bld) 59.3 % . [facility] Nitrite Test strip Ql (U)Ord ered By: Conner Griffith on 10-26-2022 Nitrite Ql (U) Negative Negative [facility] No Panel InformationOrdered By: Conner Griffith on 10-26-2022 Estimated GFR () > 60 mL/Min [facility] Comment on above: GFR estimated refere nce range: According to KDOQI guidelines, <60 ml/min/1.73m2 is sufficient to diagnose a patient with chronic kidney disease. Pharmacy Creatinine Clearance (Chem 93.01 [facility] Nucleated erythrocytes [Pres ence] in Blood by Automated countOrdered By: Conner Griffith on 10-26-2022 Nucleated RBC Auto Ql (Bld) 0.3 /100{WBC} 0-0.5 [facility] Partial Thromboplastin Timeo n 10-26-2022 aPTT Coag (Bld) [Time] 30.8 s Normal 25.1-36.5 [facility] Comment on above: Result Comment: PERF ORMED BY: [place] [address] PATHOLOGIST [employer] ROOSEVELT KEYES M.D. Performed By: #### H EPATIC, CBC, BMP, LIPASE #### [address] Platelet mean volume Auto (B ld) [Entitic vol]Ordered By: Conner Griffith on 10-26-2022 Platelet mean volume (Bld) [Entitic vol] 7.5 fL 6.3-10.7 [facility] Platelet poor plasma interna tional normalized ratio (INR) by coagulation assay (relatOrdered By: Conner Griffith on 10-26-2022 INR Coag (PPP) [Relative time] 0.9 {INR} [facility] Comment on above: INR Therapeutic Rang e [...] (Bld) [#/Vol] 379 10*3/uL 150-450 [facility] Protein Auto test strip (U) [Mass/Vol]Ordered By: Conner Griffith on 10-26-2022 Protein (U) [Mass/Vol] Negative Negative [facility] Protein [Mass/volume] in Ser um or PlasmaOrdered By: Conner Griffith on 10-26-2022 Protein [Mass/Vol] 6.8 g/dL 6.1-7.9 [facility] Prothrombin Time INRon 10-26 INR Coag (PPP) [Relative time] 0.9 {INR} Normal [facility] Comment on above: Result Comment: INR Therapeutic [...] #### H EPATIC, CBC, BMP, LIPASE #### [facility] [address] [place] [address] [place] PT Coag (PPP) [Time] 10.6 s Normal 9.0-12.[address] [facility] Comment on above: Performed By: #### H EPATIC, CBC, BMP, LIPASE #### [facility] [address] [place] [address] [place] RBC Auto (Bld) [#/Vol]Ordere d By: Conner Griffith on 10-26-2022 RBC (Bld) [#/Vol] 4.14 10*6/uL 3.60-5.00 [facility] Serum or plasma alanine cooley otransferase measurement without P-5'-P (enzymatic activiOrdered By: Conner Griffith on 10-26-2022 ALT No additional P-5'-P [Catalytic activity/Vol] 18 U/L 10-60 [facility] Serum or plasma albumin/glob ulin mass ratioOrdered By: Conner Griffith on 10-26-2022 Albumin/Globulin [Mass ratio] 1.1 {ratio} [facility] Serum or plasma alkaline augustin sphatase measurement (enzymatic activity/volume)Ordered By: Conner Griffith on 10-26-2022 ALP [Catalytic activity/Vol] 121 U/L 32-92 [facility] Serum or plasma anion gap de terminationOrdered By: Conner Griffith on 10-26-2022 Anion gap [Moles/Vol] 11.3 mmol/L 6.0-15.0 [facility] Serum or plasma aspartate am inotransferase measurement (enzymatic activity/volume)Ordered By: Conner Griffith on 10-26-2022 AST [Catalytic activity/Vol] 19 U/L 10-42 [facility] Serum or plasma calcium julee urement (mass/volume)Ordered By: Conner Griffith on 10-26-2022 Calcium [Mass/Vol] 8.9 mg/dL 8.2-10.2 [facility] Serum or plasma chloride julio surement (moles/volume)Ordered By: Conner Griffith on 10-26-2022 Chloride [Moles/Vol] 108 mmol/L 95-[address] [facility] Serum or plasma glucose julee urement (mass/volume)Ordered By: Conner Griffith on 10-26-2022 Glucose [Mass/Vol] 95 mg/dL 70-100 [facility] Comment on above: ADA recommended refe rence rangeRandom Glucose Reference Range is dependent on time and content of last meal. Glucose of more than 200 mg/dL in a nonstressed, ambulatory subject supports the diagnosis of Diabetes Mellitus. Serum or plasma potassium me asurement (moles/volume)Ordered By: Conner Griffith on 10-26-2022 Potassium [Moles/Vol] 3.4 mmol/L 3.5-5.1 [facility] Serum or plasma sodium measu rement (moles/volume)Ordered By: Conner Griffith on 10-26-2022 Sodium [Moles/Vol] 141 mmol/L 136-146 [facility] Serum or plasma total biliru bin measurement (mass/volume)Ordered By: Conner Griffith on 10-26-2022 Bilirubin [Mass/Vol] 0.4 mg/dL 0.3-1.[address] [facility] Serum or plasma total carbon dioxide measurement (moles/volume)Ordered By: Conner Griffith on 10-26-2022 CO2 [Moles/Vol] 25.1 mmol/L 22.0-30.0 [facility] Serum or plasma urea nitroge n measurement (mass/volume)Ordered By: Conner Griffith on 10-26-2022 Urea nitrogen [Mass/Vol] 18 mg/dL 9-23 [facility] Specific gravity Auto test s trip (U) [Rel density]Ordered By: Conner Griffith on 10-26-2022 Specific gravity (U) [Rel density] 1.019 1.001-1.030 [facility] Squamous epithelial cells de tection in urine sediment by light microscopyOrdered By: Conner Griffith on 10-26-2022 Epithelial cells.squamous LM Ql (Urine sed) 1-2 [HPF] 0-2 [facility] Urine bacteria detection by automated methodOrdered By: Conner Griffith on 10-26-2022 Bacteria Auto Ql (U) None seen None Seen [facility] Urine clarity by refractomet ry automatedOrdered By: Conner Griffith on 10-26-2022 Clarity Refractometry automated (U) Clear Clear [facility] Urine glucose measurement by automated test strip (mass/volume)Ordered By: Conner Griffith on 10-26-2022 Glucose Auto test strip (U) [Mass/Vol] Normal mg/dL Normal [facility] Urine hemoglobin detection b y automated test stripOrdered By: Conner Griffith on 10-26-2022 Hemoglobin Auto test strip Ql (U) Negative Negative [facility] Urine lactic acid measuremen tOrdered By: Conner Griffith on 10-26-2022 Lactate (U) [Moles/Vol] 1.0 mmol/L 0.5-2.2 [facility] Urine leukocyte esterase det ection by automated test stripOrdered By: Conner Griffith on 10-26-2022 Leukocyte esterase Auto test strip Ql (U) 1+ Negative [facility] Urobilinogen Auto test strip (U) [Mass/Vol]Ordered By: Conner Griffith on 10-26-2022 Urobilinogen (U) [Mass/Vol] Normal mg/dL Normal [facility] WBC Auto (Bld) [#/Vol]Ordere d By: Conner Griffith on 10-26-2022 WBC (Bld) [#/Vol] 6.3 10*3/uL 3.8-11.6 [facility] pH Auto test strip (U)Ordere d By: Conner Griffith on 10-26-2022 pH (U) 6.5 [pH] 5.0-9.0 [facility] Auth for Release of Medical Recordson 10-25-2022 Auth for Release of Medical Records [id number]:127 Normal [facility] CBC AUTO DIFFon 09-21-2022 BASO # 0.0 103/ul Normal 0.0-0.1 [facility] Comment on above: Performed By: #### C BC ####[facility] [address] [place], [place] [address]Dr. Tadeo Smyth Basophils/100 WBC (Bld) 0.4 % Normal 0.2-2.0 [facility] Comment on above: Performed By: #### C BC ####[facility] [address] [place], [place] [address]Dr. Tadeo Smyth EO # 0.1 103/ul Normal 0.0-0.7 [facility] Comment on above: Performed By: #### C BC ####[facility] [address] [place], [place] [address]Dr. Tadeo Smyth Eosinophils/100 WBC (Bld) 1.8 % Normal 0.9-7.0 [facility] Comment on above: Performed By: #### C BC ####[facility] [address] [place], [place] [address]Dr. Tadeo Smyth Erythrocyte distribution width (RBC) [Ratio] 13.8 % Normal 11.0-15.0 [facility] Comment on above: Performed By: #### C BC ####[facility] [address] [place] [address]Dr. Tadeo Smyth Hematocrit (Bld) [Volume fraction] 41.0 % Normal 36.0-48.0 [facility] Comment on above: Performed By: #### C BC ####[facility] [address] [place], [place] [address]DrNeo Tadeo Smyth Hemoglobin (Bld) [Mass/Vol] 13.3 g/dL Normal 12.0-16.0 [facility] Comment on above: Performed By: #### C BC ####[facility] [address] [place], [place] [address]DrNeo Smyth IG # 0.01 10e3/ul Normal 0.00-0.03 [facility] Comment on above: Performed By: #### C BC ####[facility] [address] [place], [place] [address]Dr. Margotnicole Smyth IG % 0.1 % Normal 0.0-0.5 [facility] Comment on above: Performed By: #### C BC ####[facility] [address] [place], [place] [address]DrNeo Tadeo Smyth LYMPH # 1.7 103/ul Normal 1.2-3.8 [facility] Comment on above: Performed By: #### C BC ####[facility] [address] [place], [place] [address]DrNeo Margotnicole Smyth Lymphocytes/100 WBC (Bld) 24.8 % Normal 20.5-60.0 [facility] Comment on above: Performed By: #### C BC ####[facility] [address] [place], [place] [address]DrNeo Smyth MANUAL DIFF REQ NO Normal [facility] Comment on above: Performed By: #### C BC ####[facility] [address] [place], [place] [address]DrNeo Smyth MCH (RBC) [Entitic mass] 29.0 pg Normal 26.7-34.0 [facility] Comment on above: Performed By: #### C BC ####[facility] [address] [place] [address]DrNeo Smyth MCHC (RBC) [Mass/Vol] 32.4 g/dL Normal 29.9-35.2 [facility] Comment on above: Performed By: #### C BC ####[facility] [address] [place] [address]DrNeo Smyth MCV (RBC) [Entitic vol] 89.3 fL Normal 81.0-99.0 [facility] Comment on above: Performed By: #### C BC ####[facility] [address] [place], [place] [address]DrNeo Smyth MONO # 0.5 103/ul Normal 0.3-0.8 [facility] Comment on above: Performed By: #### C BC ####[facility] [address] [place], [place] [address]DrNeo Smyth Monocytes/100 WBC (Bld) 6.9 % Normal 1.7-12.0 [facility] Comment on above: Performed By: #### C BC ####[facility] [address] [place], [place] [address]DrNeo Smyth NEUT # 4.5 103/ul Normal 1.4-6.5 [facility] Comment on above: Performed By: #### C BC ####[facility] [address] [place], [place] [address]DrNeo Smyth Neutrophils/100 WBC (Bld) 66.0 % Normal 43.0-75.0 [facility] Comment on above: Performed By: #### C BC ####[facility] [address] [place], [place] [address]DrNeo Smyth Platelet mean volume (Bld) [Entitic vol] 8.8 fL Critically low 9.5-13.5 [facility] Comment on above: Performed By: #### C BC ####[facility] [address] [place], [place] [address]DrNeo Smyth PLT 384 103/ul Normal 150-450 [facility] Comment on above: Performed By: #### C BC ####[facility] [address] [place] [address]Dr. Tadeo Smyth RBC 4.59 106/ul Normal 4.20-5.40 [facility] Comment on above: Performed By: #### C BC ####[facility] [address] [place], [place] [address]Dr. Tadeo Smyth WBC 6.8 103/ul Normal 4.0-11.0 [facility] Comment on above: Performed By: #### C BC ####[facility] [address] [place], [place] [address]DrNeo Smyth PROF CHEM 8 (BAS METB)on Anion gap [Moles/Vol] 13.8 mmol/L Normal [facility] Comment on above: Performed By: #### B MP ####[facility] [address] [place], [place] [address]DrNeo Smyth Calcium [Mass/Vol] 9.6 mg/dL Normal 8.5-10.1 [facility] Comment on above: Performed By: #### B MP ####[facility] [address] [place], [place] [address]DrNeo Smyth Chloride [Moles/Vol] 106 mmol/L Normal 98-107 [facility] Comment on above: Performed By: #### B MP ####[facility] [address] [place], [place] [address]DrNeo Smyth CO2 [Moles/Vol] 25.9 mmol/L Normal 21.0-32.0 [facility] Comment on above: Performed By: #### B MP ####[facility] [address] [place], [place] [address]Dr. Tadeo Smyth Creatinine [Mass/Vol] 0.92 mg/dL Normal 0.55-1.02 [facility] Comment on above: Performed By: #### B MP ####[facility] [address] [place], [place] [address]DrNeo Smyth EGFR-AF KENYAN >60 Normal >=60 [facility] Comment on above: Performed By: #### B MP ####[facility] [address] [place] [address]Dr. Tadeo Smyth EGFR-NON AF KENYAN >60 Normal >=60 [facility] Comment on above: Performed By: #### B MP ####[facility] [address] [place] [address]Dr. Margotnicole Haja Glucose [Mass/Vol] 98 mg/dL Normal 74-106 [facility] Comment on above: Performed By: #### B MP ####[facility] [address] [place] [address]Dr. Tadeo Smyth Potassium [Moles/Vol] 3.7 mmol/L Normal 3.5-5.1 [facility] Comment on above: Performed By: #### B MP ####[facility] [address] [place] [address]Dr. Tadeo Smyth Sodium [Moles/Vol] 142 mmol/L Normal 136-145 [facility] Comment on above: Performed By: #### B MP ####[facility] [address] [place] [address]Dr. Tadeo Haja Urea nitrogen [Mass/Vol] 19.0 mg/dL Critically high 7.0-18.0 [facility] Comment on above: Performed By: #### B MP ####[facility] [address] [place] [address]Dr. Tadeo Smyth Urea nitrogen/Creatinine [Mass ratio] 20.7 mg/mg Normal [facility] Comment on above: Performed By: #### B MP ####[facility] [address] [place] [address]Dr. Tadeo Haja XR KUB 1 VIEWon 09-21-2022 XR KUB 1 VIEW Normal [facility] Lab Reportson 09-20-2022 Lab Reports [id number]:127 Normal [facility] RAD - CT Reporton 09-20-2022 RAD - CT Report [id number]:127 Normal [facility] RAD - MISCon 09-20-2022 RAD - MIS [id number]#[id number]:127 Normal [facility] AMYLASEon 09-18-2022 Amylase [Catalytic activity/Vol] 58 U/L Normal 25-115 [facility] Comment on above: Performed By: #### L IPA, CMP, VIJI ####[facility] [address] [place], [place] [address]Dr. Tadeo Smyth CBC AUTO DIFFon 09-18-2022 BASO # 0.0 103/ul Normal 0.0-0.1 [facility] Comment on above: Performed By: #### C BC ####[facility] [address] [place], [place] [address]Dr. Tadeo Smyth Basophils/100 WBC (Bld) 0.3 % Normal 0.2-2.0 [facility] Comment on above: Performed By: #### C BC ####[facility] [address] [place], [place] [address]Dr. Tadeo Smyth EO # 0.1 103/ul Normal 0.0-0.7 [facility] Comment on above: Performed By: #### C BC ####[facility] [address] [place], [place] [address]Dr. Tadeo Smyth Eosinophils/100 WBC (Bld) 1.8 % Normal 0.9-7.0 [facility] Comment on above: Performed By: #### C BC ####[facility] [address] [place], [place] [address]Dr. Tadeo Smyth Erythrocyte distribution width (RBC) [Ratio] 13.7 % Normal 11.0-15.0 [facility] Comment on above: Performed By: #### C BC ####[facility] Aswfvmmvgy[address] [place], [place] [address]Dr. Tadeo Smyth Hematocrit (Bld) [Volume fraction] 37.4 % Normal 36.0-48.0 [facility] Comment on above: Performed By: #### C BC ####[facility] [address]jasbnzlre[address] [place] [id number]. Tadeo Smyth Hemoglobin (Bld) [Mass/Vol] 12.3 g/dL Normal 12.0-16.0 [facility] Comment on above: Performed By: #### C BC ####[facility] Joxwqnnepx37[address] [place] [address]Dr. Tadeo Smyth IG # 0.02 10e3/ul Normal 0.00-0.03 [facility] Comment on above: Performed By: #### C BC ####[facility] Khxbppwzss2775 [place] [address]Dr. Tadeo Smyth IG % 0.3 % Normal 0.0-0.5 [facility] Comment on above: Performed By: #### C BC ####[facility] Hbuubrenko[address] [place], [place] [address]Dr. Tadeo Smyth LYMPH # 2.2 103/ul Normal 1.2-3.8 [facility] Comment on above: Performed By: #### C BC ####[facility] Oxruihlzxe[address] [place] [address]Dr. Tadeo Smyth Lymphocytes/100 WBC (Bld) 29.3 % Normal 20.5-60.0 [facility] Comment on above: Performed By: #### C BC ####[facility] Pjyafxjopl[address] [place] [address]Dr. Tadeo Smyth MANUAL DIFF REQ NO Normal [facility] Comment on above: Performed By: #### C BC ####[facility] Jlctxheprk[address] [place], [place] [address]Dr. Tadeo Smyth MCH (RBC) [Entitic mass] 29.0 pg Normal 26.7-34.0 [facility] Comment on above: Performed By: #### C BC ####[facility] Zcqwlfyhmh0979 [place] [address]Dr. Tadeo Smyth MCHC (RBC) [Mass/Vol] 32.9 g/dL Normal 29.9-35.2 [facility] Comment on above: Performed By: #### C BC ####[facility] Lzxfhfymrb9955 [place] [address]Dr. Tadeo Smyth MCV (RBC) [Entitic vol] 88.2 fL Normal 81.0-99.0 [facility] Comment on above: Performed By: #### C BC ####[facility] Babhiwopjy22[address] [place] [address]Dr. Tadeo Smyth MONO # 0.5 103/ul Normal 0.3-0.8 [facility] Comment on above: Performed By: #### C BC ####[facility] Odaarnecti[address] [place], [place] [address]Dr. Tadeo Smyth Monocytes/100 WBC (Bld) 6.4 % Normal 1.7-12.0 [facility] Comment on above: Performed By: #### C BC ####[facility] Xclzonsetl756[address] [place], [place] [address]Dr. Tadeo Smyth NEUT # 4.7 103/ul Normal 1.4-6.5 [facility] Comment on above: Performed By: #### C BC ####[facility] Nsivvcvjjj45[address] [place], [place] [address]Dr. Tadeo Smyth Neutrophils/100 WBC (Bld) 61.9 % Normal 43.0-75.0 [facility] Comment on above: Performed By: #### C BC ####[facility] Pyuclujupx2920[address] [place], [place] [address]Dr. Tadeo Smyth Platelet mean volume (Bld) [Entitic vol] 9.0 fL Critically low 9.5-13.5 [facility] Comment on above: Performed By: #### C BC ####[facility] Xchmjvxdot[address] [place], [place] [address]Dr. Tadeo Smyth PLT 395 103/ul Normal 150-450 [facility] Comment on above: Performed By: #### C BC ####[facility] Bsfujdgipq47[address] [place], [place] [address]Dr. Tadeo Smyth RBC 4.24 106/ul Normal 4.20-5.40 [facility] Comment on above: Performed By: #### C BC ####[facility] Axhssttshy[address] [place] [address]Dr. Margotnicole Haja WBC 7.6 103/ul Normal 4.0-11.0 [facility] Comment on above: Performed By: #### C BC ####[facility] Nbycvuawqb60[address] [place] [address]Dr. Margotnicole Haja CT ABD/PELV W CONon 09-18-[address] ABD/PELV W CON Normal [facility] ER URINE PROFILEon 3 Bilirubin Ql (U) SMALL Abnormal NEGATIVE [facility] Comment on above: Performed By: #### Matthew FRANCISCO UMICRO ####[facility] Xgzlbtkpwm5[address] [place], [place] [address]Dr. Tadeo Smyth Clarity (U) CLEAR Normal CLEAR [facility] Comment on above: Performed By: #### Matthew FRANCISCO UMICRO ####[facility] Qsxaudhble500[address] [place], [place] [address]Dr. Tadeo Smyth Color (U) DK. YELLOW Normal YELLOW [facility] Comment on above: Performed By: #### Matthew FRANCISCO UMICRO ####[facility] Ihxqgihzmf9[address] [place], [place] [address]Dr. Tadeo CAMARGOD A micrscopic examina tion will be performed if indicated. Normal [facility] Comment on above: Performed By: #### Matthew FRANCISCO UMICRO ####[facility] Ejtdjyootr12[address] [place], [place] [address]Dr. Tadeo Smyth Glucose Ql (U) Negative Normal NEGATIVE [facility] Comment on above: Performed By: #### Matthew FRANCISCO UMICRO ####[facility] Mmodawwzxx3038[address] [place], [place] [address]Dr. Tadeo Smyth Hemoglobin Ql (U) SMALL Abnormal NEGATIVE [facility] Comment on above: Performed By: #### Matthew FRANCISCO UMICRO ####[facility] Ghunsraqqw8067[address] [place], [place] [address]Dr. Tadeo Smyth Ketones Ql (U) Negative Normal NEGATIVE [facility] Comment on above: Performed By: #### KAROL MERCHANT ####[facility] Rornfpbyzx17[address] [place] [address]Dr. Tadeo Smyth LEUKOCYTES Negative Normal NEGATIVE [facility] Comment on above: Performed By: #### KAROL MERCHANT ####[facility] Utabbkidjh8838 [place] [address]Dr. Tadeo Smyth Nitrite Ql (U) Negative Normal NEGATIVE [facility] Comment on above: Performed By: #### KAROL MERCHANT ####[facility] Vknungjgue4485 [place] [address]Dr. Tadeo Smyth pH (U) 5.5 [pH] Normal 5-9 [facility] Comment on above: Performed By: #### KAROL MERCHANT ####[facility] Qtzvbrzipb8068 [place] [address]Dr. Tadeo Smyth SPEC GRAVITY >=1.030 Abnormal 1.005-<=1.0 25 [facility] Comment on above: Performed By: #### KAROL MERCHANT ####[facility] Tehyhahlgp[address] [place], [place] [address]Dr. Tadeo Smyth UA PROTEIN TRACE Normal NEGATIVE/ TRACE [facility] Comment on above: Performed By: #### KAROL MERCHANT ####[facility] Fbnoenfqis50[address] [place] [address]Dr. Tadeo Smyth UR MICRO IND INDICATED Normal [facility] Comment on above: Performed By: #### KAROL MERCHANT ####[facility] Jwxsauvzdg[address] [place], [place] [address]Dr. Tadeo Smyth Urobilinogen Qn (U) 0.2 {Benito'U}/dL Normal 0.2 - 1. 0 [facility] Comment on above: Performed By: #### KAROL MRECHANT ####[facility] Dqbznebjmj380[address] [place], [place] [address]Dr. Tadeo Smyth LACTATE/LACTIC ACIDon 2022 Lactate [Moles/Vol] 1.1 mmol/L Normal 0.4-1.9 [facility] Comment on above: Performed By: #### L SOLANGE ####[facility] Nbqoutdstz6543 [place] [address]Dr. Tadeo Smyth LIPASEon 09-18-2022 Lipase [Catalytic activity/Vol] 75.0 U/L Normal 73.0-393.0 [facility] Comment on above: Performed By: #### L IPA, CMP, VIJI ####[facility] Fmeatagpja6423 [place] [address]Dr. Tadeo Smyth PROF 14(COMP METB)on 023 Albumin [Mass/Vol] 3.4 g/dL Normal 3.4-5.0 [facility] Comment on above: Performed By: #### L IPA, CMP, VIJI ####[facility] Qltdthufyo0946[address] [place], [place] [address]Dr. Tadeo Smyth Albumin/Globulin [Mass ratio] 0.9 {ratio} Normal [facility] Comment on above: Performed By: #### L IPA, CMP, VIJI ####[facility] Qjszelckis824[address] [place], [place] [address]Dr. Tadeo Smyth ALP [Catalytic activity/Vol] 164 U/L Critically high 46-116 [facility] Comment on above: Performed By: #### L IPA, CMP, VIJI ####[facility] Tufoviritv4427[address] [place], [place] [address]Dr. Tadeo Smyth ALT [Catalytic activity/Vol] 29 U/L Normal 14-59 [facility] Comment on above: Performed By: #### L IPA, CMP, VIJI ####[facility] Jmjxgawyym7[address] [place] [address]Dr. Tadeo Smyth Anion gap [Moles/Vol] 12.3 mmol/L Normal [facility] Comment on above: Performed By: #### L IPA, CMP, VIJI ####[facility] Mpjxqcnnsj6[address] [place], [place] [address]Dr. Tadeo Smyth AST [Catalytic activity/Vol] 30 U/L Normal 15-37 [facility] Comment on above: Performed By: #### L IPA, CMP, VIJI ####[facility] Etcbotcuiw2635[address] [place], [place] [address]Dr. Tadeo Smyth Bilirubin [Mass/Vol] 0.3 mg/dL Normal 0.2-1.0 [facility] Comment on above: Performed By: #### L IPA CMP, VIJI ####[facility] Dadqphfomz4136 [place] [address]Dr. Tadeo Smyth Calcium [Mass/Vol] 8.9 mg/dL Normal 8.5-10.1 [facility] Comment on above: Performed By: #### L IPA CMP, VIJI ####[facility] Dexzfmeoid4610[address] [place], [place] [address]Dr. Tadeo Smyth Chloride [Moles/Vol] 103 mmol/L Normal 98-107 [facility] Comment on above: Performed By: #### L IPA CMP, VIJI ####[facility] Uwwfqwudup6[address] [place], [place] [address]Dr. Tadeo Smyth CO2 [Moles/Vol] 27.8 mmol/L Normal 21.0-32.0 [facility] Comment on above: Performed By: #### L IPA, CMP, VIJI ####[facility] Tgqiadrtho459[address] [place], [place] [address]Dr. Tadeo Smyth Creatinine [Mass/Vol] 0.89 mg/dL Normal 0.55-1.02 [facility] Comment on above: Performed By: #### L IPA CMP, VIJI ####[facility] Krftsfaxxo704[address] [place], [place] [address]Dr. Tadeo Smyth EGFR-AF KENYAN >60 Normal >=60 [facility] Comment on above: Performed By: #### L IPA, CMP, VIJI ####[facility] Ubuhdmnrtz[address] [place], [place] [address]Dr. Tadeo Smyth EGFR-NON AF KENYAN >60 Normal >=60 [facility] Comment on above: Performed By: #### L IPA, CMP, VIJI ####[facility] Cmtbyvzaiz70[address] [place], [place] [address]Dr. Tadeo Smyth Globulin (S) [Mass/Vol] 3.9 g/dL Normal [facility] Comment on above: Performed By: #### L IPA, CMP, VIJI ####[facility] Vjhkfyrkfg35[address] [place] [address]Dr. Tadeo Smyth Glucose [Mass/Vol] 96 mg/dL Normal 74-106 [facility] Comment on above: Performed By: #### L IPA, CMP, VIJI ####[facility] Sumewpkwsz4523 [place] [address]Dr. Tadeo Smyth Potassium [Moles/Vol] 4.1 mmol/L Normal 3.5-5.1 [facility] Comment on above: Performed By: #### L IPA, CMP, VIJI ####[facility] Wzwpctsram8442 [place] [address]Dr. Tadeo Smyth Protein [Mass/Vol] 7.3 g/dL Normal 6.4-8.2 [facility] Comment on above: Performed By: #### L IPA, CMP, VIJI ####[facility] Rcfpqlzdkg6589 [place] [address]Dr. Tadeo Smyth Sodium [Moles/Vol] 139 mmol/L Normal 136-145 [facility] Comment on above: Performed By: #### L IPA, CMP, VJII ####[facility] Eueyaqwwgc6275 [place] [address]Dr. Tadeo Smyth Urea nitrogen [Mass/Vol] 19.0 mg/dL Critically high 7.0-18.0 [facility] Comment on above: Performed By: #### L IPA, CMP, VIJI ####[facility] Alnjjygbrl4[address] [place] [address]Dr. Tadeo Smyth Urea nitrogen/Creatinine [Mass ratio] 21.3 mg/mg Normal [facility] Comment on above: Performed By: #### L IPA, CMP, VIJI ####[facility] Rtvckfvlie9082 [place] [address]Dr. Tadeo Smyth URINE MICROSCOPIC ONLYon BACTERIA TRACE Abnormal NONE SEEN [facility] Comment on above: Performed By: #### E KAROL FRANCISCO ####[facility] Zxjyilvrbx67[address] [place] [address]Dr. Tadeo Smyth Bacteria identified Cx Nom (U) NOT INDICATED Normal [facility] Comment on above: Performed By: #### SANDRO MERCHANTRO ####[facility] Oqrxnufdwz18[address] [place] [address]Dr. Margotnicole Haja CAST NONE SEEN Normal NONE SEEN [facility] Comment on above: Performed By: #### SANDRO MERCHANTRO ####[facility] Rqiybbbkfp2255 [place] [address]Dr. Tadeo Smyth Crystals LM Nom (Urine sed) SEEN Abnormal NONE SEEN [facility] Comment on above: Performed By: #### SANDRO MERCHANTRO ####[facility] Vxonhzopsq1866 [place] [address]Dr. Tadeo Smyth Epithelial cells LM Ql (Urine sed) RARE Normal NONE SEEN /RARE [facility] Comment on above: Performed By: #### SANDRO MERCHANTRO ####[facility] Nmoaijhryx[address] [place], [place] [address]Dr. Tadeo Smyth MUCOUS TRACE Abnormal NONE SEEN [facility] Comment on above: Performed By: #### Matthew FRANCISCO CHINEDURO ####[facility] Xeimwietvj4[address] [place], [place] [address]Dr. Tadeo Smyth RBC 0-2 Normal 0-2 [facility] Comment on above: Performed By: #### SANDRO MERCHANTRO ####[facility] Fpgiaduxxn38[address] [place], [place] [address]Dr. Tadeo Smyth WBC 0-2 Abnormal NONE SEEN [facility] Comment on above: Performed By: #### KAROL MERCHANT ####[facility] Bndfpbhjkd64[address] [place], [place] [address]Dr. Tadeo Smyth CBC AUTO DIFFon 09-14-2022 BASO # 0.0 103/ul Normal 0.0-0.1 [facility] Comment on above: Performed By: #### C BC ####[facility] Fftmylykhs8427[address] [place], [place] [address]Dr. Tadeo Smyth Basophils/100 WBC (Bld) 0.3 % Normal 0.2-2.0 [facility] Comment on above: Performed By: #### C BC ####[facility] Fldhplucba5263 [place] [address]Dr. Tadeo Smyth EO # 0.2 103/ul Normal 0.0-0.7 [facility] Comment on above: Performed By: #### C BC ####[facility] Llthhfcupw3065 [place] [address]Dr. Tadeo Smyth Eosinophils/100 WBC (Bld) 1.1 % Normal 0.9-7.0 [facility] Comment on above: Performed By: #### C BC ####[facility] Xkfwgetmnk[address] [place], [place] [address]Dr. Tadeo Smyth Erythrocyte distribution width (RBC) [Ratio] 13.7 % Normal 11.0-15.0 [facility] Comment on above: Performed By: #### C BC ####[facility] Vyexvkmygf1925[address] [place], [place] [address]Dr. Tadeo Smyth Hematocrit (Bld) [Volume fraction] 41.3 % Normal 36.0-48.0 [facility] Comment on above: Performed By: #### C BC ####[facility] Vlznmkcbkv4[address] [place], [place] [address]Dr. Tadeo Smyth Hemoglobin (Bld) [Mass/Vol] 13.6 g/dL Normal 12.0-16.0 [facility] Comment on above: Performed By: #### C BC ####[facility] Bfimfvcsds[address] [place], [place] [address]Dr. Tadeo Smyth IG # 0.05 10e3/ul Critically high 0.00-0.03 [facility] Comment on above: Performed By: #### C BC ####[facility] Ibcwhaeehg05[address] [place], [place] [address]Dr. Tadeo Smyth IG % 0.4 % Normal 0.0-0.5 [facility] Comment on above: Performed By: #### C BC ####[facility] Ulovthjlvb2506[address] [place], [place] [address]Dr. Tadeo Smyth LYMPH # 2.2 103/ul Normal 1.2-3.8 [facility] Comment on above: Performed By: #### C BC ####[facility] Xyviwyuiwq1536 [place] [address]Dr. Tadeo Smyth Lymphocytes/100 WBC (Bld) 16.3 % Critically low 20.5-60.0 [facility] Comment on above: Performed By: #### C BC ####[facility] Valrjohbtg9851 [place] [address]Dr. Tadeo Smyth MANUAL DIFF REQ NO Normal [facility] Comment on above: Performed By: #### C BC ####[facility] Nkvqlbghgy6457 [place] [address]Dr. Tadeo Smyth MCH (RBC) [Entitic mass] 28.9 pg Normal 26.7-34.0 [facility] Comment on above: Performed By: #### C BC ####[facility] Ebbdbuhude39[address] [place] [address]Dr. Tadeo Smyth MCHC (RBC) [Mass/Vol] 32.9 g/dL Normal 29.9-35.2 [facility] Comment on above: Performed By: #### C BC ####[facility] Gpqqeppqgp4769 [place] [address]Dr. Tadeo Smyth MCV (RBC) [Entitic vol] 87.9 fL Normal 81.0-99.0 [facility] Comment on above: Performed By: #### C BC ####[facility] Wywsafxzad4423 [place] [address]Dr. Tadeo Haja MONO # 0.7 103/ul Normal 0.3-0.8 [facility] Comment on above: Performed By: #### C BC ####[facility] Bfcvhztene9427 [place] [address]Dr. Tadeo Smyth Monocytes/100 WBC (Bld) 5.1 % Normal 1.7-12.0 [facility] Comment on above: Performed By: #### C BC ####[facility] Obvrbvaqqb9[address] [place] [address]Dr. Tadeo Smyth NEUT # 10.3 103/ul Critically high 1.4-6.5 [facility] Comment on above: Performed By: #### C BC ####[facility] Ptqomhandn9957 [place] [address]Dr. Tadeo Smyth Neutrophils/100 WBC (Bld) 76.8 % Critically high 43.0-75.0 [facility] Comment on above: Performed By: #### C BC ####[facility] Moursxipyl6337 [place] [address]Dr. Tadeo Smyth Platelet mean volume (Bld) [Entitic vol] 8.8 fL Critically low 9.5-13.5 [facility] Comment on above: Performed By: #### C BC ####[facility] Ynjkhgwurb9623 [place] [address]Dr. Tadeo Smyth PLT 438 103/ul Normal 150-450 [facility] Comment on above: Performed By: #### C BC ####[facility] Cjqibkcftz[address] [place], [place] [address]Dr. Tadeo Haja RBC 4.70 106/ul Normal 4.20-5.40 [facility] Comment on above: Performed By: #### C BC ####[facility] Exqyrdabjx7584[address] [place], [place] [address]Dr. Tadeo Smyth WBC 13.4 103/ul Critically high 4.0-11.0 [facility] Comment on above: Performed By: #### C BC ####[facility] Gkbxyhgzqd3625[address] [place], [place] [address]Dr. Tadeo Smyth ER URINE PROFILEon 3 Bilirubin Ql (U) Negative Normal NEGATIVE [facility] Comment on above: Performed By: #### SANDRO MERCHANTRO ####[facility] Fmursfriwc6171 [place] [address]Dr. Tadeo Haja Clarity (U) CLEAR Normal CLEAR [facility] Comment on above: Performed By: #### SANDRO MERCHANTRO ####[facility] Waaktzwtxa8[address] [place] [address]Dr. Tadeo Smyth Color (U) LT. YELLOW Normal YELLOW [facility] Comment on above: Performed By: #### SANDRO MERCHANTRO ####[facility] Aqfrvtutjn24[address] [place], [place] [address]Dr. Tadeo ENG A micrscopic examina tion will be performed if indicated. Normal [facility] Comment on above: Performed By: #### KAROL MERCHANT ####[facility] Ntgojcvaro9150 [place] [address]Dr. Tadeo Smyth Glucose Ql (U) Negative Normal NEGATIVE [facility] Comment on above: Performed By: #### KAROL MERCHANT ####[facility] Mhdhhcvler4002 [place] [address]Dr. Tadeo Smyth Hemoglobin Ql (U) TRACE-INTACT Abnormal NEGATIVE [facility] Comment on above: Performed By: #### KAROL MERCHANT ####[facility] Zzxrfsusmd[address] [place], [place] [address]Dr. Tadeo Smyth Ketones Ql (U) Negative Normal NEGATIVE [facility] Comment on above: Performed By: #### KAROL MERCHANT ####[facility] Akhoodywjw8[address] [place], [place] [address]Dr. Tadeo Smyth LEUKOCYTES Negative Normal NEGATIVE [facility] Comment on above: Performed By: #### KAROL MERCHANT ####[facility] Nhgzslomks4[address] [place], [place] [address]Dr. Tadeo Smyth Nitrite Ql (U) Negative Normal NEGATIVE [facility] Comment on above: Performed By: #### KAROL MERCHANT ####[facility] Fpmboswxkv[address] [place], [place] [address]Dr. Tadeo Smyth pH (U) 6.5 [pH] Normal 5-9 [facility] Comment on above: Performed By: #### KAROL MERCHANT ####[facility] Plxjkvgmhg[address] [place], [place] [address]Dr. Tadeo Smyth SPEC GRAVITY 1.020 Normal 1.005-<=1.0 25 [facility] Comment on above: Performed By: #### KAROL MERCHANT ####[facility] Kuzvyrdhez[address] [place] [address]Dr. Tadeo Smyth UA PROTEIN Negative Normal NEGATIVE/ TRACE [facility] Comment on above: Performed By: #### KAROL MERCHANT ####[facility] Kdtfzltryp89[address] [place] [address]Dr. Tadeo Smyth UR MICRO IND INDICATED Normal [facility] Comment on above: Performed By: #### KAROL MERCHANT ####[facility] Mfqcgbwqhf7094 [place] [address]Dr. Tadeo Smyth Urobilinogen Qn (U) 0.2 {Benito'U}/dL Normal 0.2 - 1. 0 [facility] Comment on above: Performed By: #### SANDRO MERCHANTRO ####[facility] Esqmtnmbwf6563 [place] [address]Dr. Tadeo Smyth LIPASEon 09-14-2022 Lipase [Catalytic activity/Vol] 117.0 U/L Normal 73.0-393.0 [facility] Comment on above: Performed By: #### H STROPN, CMP, LIPA ####[facility] Nzwmdfutec9201 [place] [address]Dr. Tadeo Smyth PROF 14(COMP METB)on 023 Albumin [Mass/Vol] 3.5 g/dL Normal 3.4-5.0 [facility] Comment on above: Performed By: #### H STROPN, CMP, LIPA ####[facility] Htdsnjkhmn7521 [place] [address]Dr. Tadeo Smyth Albumin/Globulin [Mass ratio] 0.8 {ratio} Normal [facility] Comment on above: Performed By: #### H STROPN, CMP, LIPA ####[facility] Ejiaqnkmbx6402 [place] [address]Dr. Tadeo Smyth ALP [Catalytic activity/Vol] 180 U/L Critically high 46-116 [facility] Comment on above: Performed By: #### H STROPN, CMP, LIPA ####[facility] Sqxmxmrvsa1807 [place] [address]Dr. Tadeo Smyth ALT [Catalytic activity/Vol] 25 U/L Normal 14-59 [facility] Comment on above: Performed By: #### H STROPN, CMP, LIPA ####[facility] [address]vpw[address] [place] [address]Dr. Tadeo Smyth Anion gap [Moles/Vol] 14.4 mmol/L Normal Th e [facility] Comment on above: Performed By: #### H STROPN, CMP, LIPA ####[facility] Wsooxfbxmv6120 [place] [address]Dr. Tadeo Smyth AST [Catalytic activity/Vol] 14 U/L Critically low 15-37 [facility] Comment on above: Performed By: #### H STROPN, CMP, LIPA ####[facility] Acfqyccqpv[address] [place] [address]Dr. Tadeo Smyth Bilirubin [Mass/Vol] 0.2 mg/dL Normal 0.2-1.0 [facility] [place] [facility] Comment on above: Performed By: #### H STROPN, CMP, LIPA ####[facility] Pltmmjtyqf[address] [place], [place] [address]Dr. Tadeo Smyth Calcium [Mass/Vol] 9.4 mg/dL Normal 8.5-10.1 [facility] [place] [facility] Comment on above: Performed By: #### H STROPN, CMP, LIPA ####[facility] Twssboliqp[address] [place], [place] [address]Dr. Tadeo Smyth Chloride [Moles/Vol] 107 mmol/L Normal 98-107 [facility] Comment on above: Performed By: #### H STROPN, CMP, LIPA ####[facility] Ygdlsfygyc[address] [place], [place] [address]Dr. Tadeo Smyth CO2 [Moles/Vol] 23.9 mmol/L Normal 21.0-32.0 [facility] Comment on above: Performed By: #### H STROPN, CMP, LIPA ####[facility] Tstrjqebpg[address] [place], [place] [address]Dr. Tadeo Smyth Creatinine [Mass/Vol] 0.91 mg/dL Normal 0.55-1.02 [facility] [place] [facility] Comment on above: Performed By: #### H STROPN, CMP, LIPA ####[facility] Grluvitnyy[address] [place], [place] [address]Dr. Tadeo Smyth EGFR-AF KENYAN >60 Normal >=60 [facility] Comment on above: Performed By: #### H STROPN, CMP, LIPA ####[facility] Yuigdcpylf[address] [place] [address]Dr. Tadeo Smyth EGFR-NON AF KENYAN >60 Normal >=60 [facility] Comment on above: Performed By: #### H STROPN, CMP, LIPA ####[facility] Kmiaassukc[address] [place] [address]Dr. Tadeo Smyth Globulin (S) [Mass/Vol] 4.2 g/dL Normal [facility] Comment on above: Performed By: #### H STROPN, CMP, LIPA ####[facility] Fnwwhhvagb79[address] [place] [address]Dr. Tadeo Smyth Glucose [Mass/Vol] 101 mg/dL Normal 74-106 [facility] Comment on above: Performed By: #### H STROPN, CMP, LIPA ####[facility] Fozjyskjae[address] [place] [address]Dr. Tadeo Smyth Potassium [Moles/Vol] 3.3 mmol/L Critically low 3.5-5.1 [facility] Comment on above: Performed By: #### H STROPN, CMP, LIPA ####[facility] Ebhwhkbyww18[address] [place] [address]Dr. Tadeo Smyth Protein [Mass/Vol] 7.7 g/dL Normal 6.4-8.2 [facility] Comment on above: Performed By: #### H STROPN, CMP, LIPA ####[facility] Kvmjypumoi38[address] [place] [address]Dr. Margotlan Smyth Sodium [Moles/Vol] 142 mmol/L Normal 136-145 [facility] Comment on above: Performed By: #### H STROPN, CMP, LIPA ####[facility] Kyynpudron[address] [place] [address]Dr. Tadeo Smyth Urea nitrogen [Mass/Vol] 17.0 mg/dL Normal 7.0-18.0 [facility] Comment on above: Performed By: #### H STROYAZMIN, CMP, LIPA ####[facility] Ntltvnjcnh60[address] [place] [address]Dr. Tadeo Smyth Urea nitrogen/Creatinine [Mass ratio] 18.7 mg/mg Normal [facility] Comment on above: Performed By: #### H STROYAZMIN, CMP, LIPA ####[facility] Ejcwqtblir[address] [place] [address]Dr. Tadeo Smyth TROPONIN, HIGH SENSITIVITYon 09-14-2022 HSTROP 46.6 pg/mL Normal 4.0-51.3 [facility] [place] [facility] Comment on above: Result Comment: CUT- OFF POINTS HAVE BEEN ESTABLISHED BASED ON THE FOURTH UNIVERSAL DEFINITIONS OF MYOCARDIALINFARCTION. THE UPPER REFERENCE LIMIT (URL) OF TROPONIN, DEFINED THE 99TH PERCENTILE OFcTnI DISTRIBUTION IN A REFERENCE POPULATION, HAS BEEN CONFIRMED THE DECISION THRESHOLDFOR ND DIAGNOSIS. Performed By: #### H DIANN FIGUEROA, LIPA ####[facility] Rrwpzxnryp44[address] [place] [address]Dr. Tadeo Smyth URINE MICROSCOPIC ONLYon BACTERIA NONE SEEN Normal NONE SEEN [facility] Comment on above: Performed By: #### Matthew FRANCISCO UMCHINEDURO ####[facility] Uqsggjazeq[address] [place], [place] [address]Dr. Tadeo Smyth Bacteria identified Cx Nom (U) NOT INDICATED Normal [facility] Comment on above: Performed By: #### Matthew FRANCISCO UMICRO ####[facility] Yzznuurrxl[address] [place] [address]Dr. Tadeo Smyth CAST NONE SEEN Normal NONE SEEN [facility] Comment on above: Performed By: #### Matthew FRANCISCO UMICRO ####[facility] Xmlevqglum4[address] [place] [address]Dr. Tadeo Smyth Crystals LM Nom (Urine sed) NONE SEEN Normal NONE SEEN [facility] Comment on above: Performed By: #### Matthew FRANCISCO UMICRO ####[facility] Fkoxmhngnh27[address] [place] [address]Dr. Tadeo Smyth Epithelial cells LM Ql (Urine sed) FEW Abnormal NONE SEEN /RARE [facility] Comment on above: Performed By: #### E SARAH BETHR UMICRO ####[facility] Txjaynfhyx9074 [place], [place] [address]Vm. Tadeo Smyth MUCOUS MODERATE Abnormal NONE SEEN [facility] Comment on above: Performed By: #### E NOLAN, UMICRO ####[facility] Ieomdcbnvy4436 [place], [place] [address]Od. Margotnicole Smyth RBC 0-2 Normal 0-2 [facility] [place] [facility] Comment on above: Performed By: #### E NOLAN, UMICRO ####[facility] Jmlwtyaakc5126 [place], [place] [address]Ly. Margotnicole Smyth WBC NONE SEEN Normal NONE SEEN [facility] Comment on above: Performed By: #### E NOLAN UMICRO ####[facility] Gnkvcqceur[address] [place] [id number]. Tadeo Smyth XR ABD FLAT UP_PA Kasey 09-14 XR ABD FLAT UP_PA CH Normal [facility] VC COMP CONSULTATIONon 09-06 VC COMP CONSULTATION Normal [facility] [place] [facility] VC VENOUS REFLUX MACARIO LMTon 0 09-06-2022 VC VENOUS REFLUX MACARIO LMT Normal [facility] [place] [facility] XR KUB 1 VIEWon 08-18-2022 XR KUB 1 VIEW Normal [facility] [place] [facility] US RUBENS DOP LEG RTon 08-11-20 US RUBENS DOP LEG RT Normal [facility] [place] [facility] Provider Letteron 08-10-2022 Provider Letter (Inserted Image. Kristin ble to display) August 10, 2022 CONSTANTINO CARDOSO [address] [place] [address] CONSTANTINO CARDOSO 1970 Dear Constantino, We have been trying to reach you with no success. It is important that you return our call regarding your referral. Thank you for your prompt attention to this matter. Sincerely, [facility] Normal [facility] AMYLASEon 08-08-2022 Amylase [Catalytic activity/Vol] 64 U/L Normal 25-115 [facility] [place] [facility] Comment on above: Performed By: #### C MP, VIJI, LIPA, CMADM ####[facility] Zvsurubdgw05[address] [place] [id number]. Tadeo Haja CARDIAC NORA ADMITon 022 CK [Catalytic activity/Vol] 127 U/L Normal 26-192 [facility] Comment on above: Performed By: #### C MP, VIJI, LIPA, CMADM ####[facility] Fgeejjvvmo4540 [place] [address]Dr. Tadeo Haja CK.MB [Mass/Vol] 1.71 ng/mL Normal <=3.60 [facility] Comment on above: Performed By: #### C MP, VIJI, LIPA, CMADM ####[facility] Lkwwbmepyb0865 [place] [address]Dr. Tadeo Haja HSTROP 36.7 pg/mL Normal 4.0-51.3 [facility] Comment on above: Result Comment: CUT- OFF POINTS HAVE BEEN ESTABLISHED BASED ON THE FOURTH UNIVERSAL DEFINITIONS OF MYOCARDIALINFARCTION. THE UPPER REFERENCE LIMIT (URL) OF TROPONIN, DEFINED THE 99TH PERCENTILE OFcTnI DISTRIBUTION IN A REFERENCE POPULATION, HAS BEEN CONFIRMED THE DECISION THRESHOLDFOR ND DIAGNOSIS. Performed By: #### C MP, VIJI, LIPA, CMADM ####[facility] Fxwgujfqxc1309 [place] [address]Dr. Margotnicole Smyth AAKASH 23 ng/mL Normal 9-82 [facility] Comment on above: Performed By: #### C MP, VIJI, LIPA, CMADM ####[facility] Exijhwhktr39[address] [place] [address]Dr. Margotnicole Smyth CBC AUTO DIFFon 08-08-2022 BASO # 0.0 103/ul Normal 0.0-0.1 [facility] Comment on above: Performed By: #### C BC ####[facility] Zenjgtyawq4[address] [place] [address]Dr. Tadeo Smyth Basophils/100 WBC (Bld) 0.4 % Normal 0.2-2.0 [facility] Comment on above: Performed By: #### C BC ####[facility] Vdgfhurfqd0231 [place] [address]Dr. Tadeo Smyth EO # 0.1 103/ul Normal 0.0-0.7 [facility] Comment on above: Performed By: #### C BC ####[facility] Svtegdaryk2868 [place] [id number]. Tadeo Smyth Eosinophils/100 WBC (Bld) 1.5 % Normal 0.9-7.0 [facility] Comment on above: Performed By: #### C BC ####[facility] Lbjqvyqbfw[address] [place], [place] [address]Dr. Tadeo Smyth Erythrocyte distribution width (RBC) [Ratio] 13.5 % Normal 11.0-15.0 [facility] Comment on above: Performed By: #### C BC ####[facility] Qwsflvqpud[address] [place], [place] [address]Dr. Tadeo Smyth Hematocrit (Bld) [Volume fraction] 37.0 % Normal 36.0-48.0 [facility] Comment on above: Performed By: #### C BC ####[facility] Kdpkkakeke[address] [place], [place] [address]Dr. Tadeo Smyth Hemoglobin (Bld) [Mass/Vol] 12.0 g/dL Normal 12.0-16.0 [facility] Comment on above: Performed By: #### C BC ####[facility] Mqsmhbtlug[address] [place], [place] [address]Dr. Tadeo Smyth IG # 0.02 10e3/ul Normal 0.00-0.03 [facility] Comment on above: Performed By: #### C BC ####[facility] Fvpqavbjxv[address] [place], [place] [address]Dr. Tadeo Smyth IG % 0.3 % Normal 0.0-0.5 [facility] Comment on above: Performed By: #### C BC ####[facility] Fbdglajgoi62[address] [place], [place] [address]Dr. Tadeo Smyth LYMPH # 2.0 103/ul Normal 1.2-3.8 [facility] Comment on above: Performed By: #### C BC ####[facility] Uzxtucatua[address] [place], [place] [address]Dr. Tadeo Smyth Lymphocytes/100 WBC (Bld) 27.9 % Normal 20.5-60.0 [facility] Comment on above: Performed By: #### C BC ####[facility] Cdzwzbycfb03[address] [place] [address]Dr. Tadeo Smyth MANUAL DIFF REQ NO Normal [facility] Comment on above: Performed By: #### C BC ####[facility] Dkwedwkrnp1508 [place] [id number]. Tadeo Smyth MCH (RBC) [Entitic mass] 28.9 pg Normal 26.7-34.0 [facility] [place] [facility] Comment on above: Performed By: #### C BC ####[facility] Hrdpvsvbjr6779 [place] [address]Dr. Tadeo Smyth MCHC (RBC) [Mass/Vol] 32.4 g/dL Normal 29.9-35.2 [facility] Comment on above: Performed By: #### C BC ####[facility] Ciambcipvb88[address] [place], [place] [address]Dr. Tadeo Smyth MCV (RBC) [Entitic vol] 89.2 fL Normal 81.0-99.0 [facility] [place] [facility] Comment on above: Performed By: #### C BC ####[facility] Xpysfiihos[address] [place], [place] [address]Dr. Tadeo Smyth MONO # 0.5 103/ul Normal 0.3-0.8 [facility] [place] [facility] Comment on above: Performed By: #### C BC ####[facility] Xqbqoppudv[address] [place], [place] [address]Dr. Tadeo Smyth Monocytes/100 WBC (Bld) 6.7 % Normal 1.7-12.0 [facility] Comment on above: Performed By: #### C BC ####[facility] Iqsxhvcrfh075[address] [place], [place] [address]DrNeo Smyth NEUT # 4.5 103/ul Normal 1.4-6.5 [facility] Comment on above: Performed By: #### C BC ####[facility] Gjoglsuvhh164[address] [place], [place] [address]Dr. Tadeo Smyth Neutrophils/100 WBC (Bld) 63.2 % Normal 43.0-75.0 [facility] Comment on above: Performed By: #### C BC ####[facility] Yvfzhfsguy8190 [place] [address]Dr. Tadeo Smyth Platelet mean volume (Bld) [Entitic vol] 9.0 fL Critically low 9.5-13.5 [facility] Comment on above: Performed By: #### C BC ####[facility] Ajonjmvsut8147 [place] [address]Dr. Tadeo Smyth PLT 382 103/ul Normal 150-450 [facility] Comment on above: Performed By: #### C BC ####[facility] Xpiwohvbac3635 [place] [address]Dr. Tadeo Smyth RBC 4.15 106/ul Critically low 4.20-5.40 [facility] Comment on above: Performed By: #### C BC ####[facility] Qnrbspbomu5148 [place] [address]Dr. Tadeo Smyth WBC 7.1 103/ul Normal 4.0-11.0 [facility] Comment on above: Performed By: #### C BC ####[facility] Vcmbgktmvr[address] [place], [place] [address]Dr. Tadeo Smyth CT ABD/PELV W CONon 08-08-[address] ABD/PELV W CON Normal [facility] ER URINE PROFILEon 2 Bilirubin Ql (U) Negative Normal NEGATIVE [facility] Comment on above: Performed By: #### KAROL MERCHANT ####[facility] Bzvlodhyui224[address] [place], [place] [address]Dr. Tadeo Smyth Clarity (U) CLEAR Normal CLEAR [facility] Comment on above: Performed By: #### SANDRO MERCHANTRO ####[facility] Zvtkrjvbsf8464 [place] [address]DrNeo Smyth Color (U) YELLOW Normal YELLOW [facility] Comment on above: Performed By: #### SANDRO MERCHANTRO ####[facility] Axoaajgxmb38[address] [place], [place] [address]DrNeo Smyth ERUAHD A micrscopic examina tion will be performed if indicated. Normal [facility] Comment on above: Performed By: #### Matthew FRANCISCO UMICRO ####[facility] Qeqlxgqelo0265 [place] [address]Dr. Tadeo Smyth Glucose Ql (U) Negative Normal NEGATIVE [facility] Comment on above: Performed By: #### Matthew FRANCISCO UMICRO ####[facility] Taeezpiclb4[address] [place], [place] [address]Dr. Tadeo Smyth Hemoglobin Ql (U) TRACE-LYSED Abnormal NEGATIVE [facility] Comment on above: Performed By: #### Matthew FRANCISCO UMICRO ####[facility] Tprsupkakz[address] [place], [place] [address]Dr. Margotnicole Smyth Ketones Ql (U) TRACE Abnormal NEGATIVE [facility] Comment on above: Performed By: #### Matthew FRANCISCO UMICRO ####[facility] Xgklqifgro5[address] [place], [place] [address]Dr. Margotnicole Smyth LEUKOCYTES Negative Normal NEGATIVE [facility] Comment on above: Performed By: #### Matthew FRANCISCO UMICRO ####[facility] Urwslciyuh74[address] [place], [place] [address]Dr. Tadeo Smyth Nitrite Ql (U) Negative Normal NEGATIVE [facility] Comment on above: Performed By: #### Matthew FRANCISCO UMICRO ####[facility] Pyxiqpvduy65[address] [place], [place] [address]Dr. Margotnicole Smyth pH (U) 6.0 [pH] Normal 5-9 [facility] Comment on above: Performed By: #### Matthew FRANCISCO UMICRO ####[facility] Hikihetjqz45[address] [place], [place] [address]Dr. Margotnicole Smyth SPEC GRAVITY >=1.030 Abnormal 1.005-<=1.0 25 [facility] Comment on above: Performed By: #### Matthew FRANCISCO UMICRO ####[facility] Jswacbdxek[address] [place], [place] [address]Dr. Margotnicole Smyth UA PROTEIN TRACE Normal NEGATIVE/ TRACE [facility] Comment on above: Performed By: #### Matthew FRANCISCO UMICRO ####[facility] Xzimzwbhdl0912 [place] [address]Dr. Tadeo Smyth UR MICRO IND INDICATED Normal [facility] Comment on above: Performed By: #### SANDRO MERCHANTRO ####[facility] Gkbmvsrzxr6592 [place] [address]Dr. Margotnicole Smyth Urobilinogen Qn (U) 0.2 {Benito'U}/dL Normal 0.2 - 1. 0 [facility] Comment on above: Performed By: #### Matthew FRANCISCO, ICRO ####[facility] Rdbdycfadz6447 [place] [address]Dr. Tadeo Smyth LACTATE/LACTIC ACIDon 2021 Lactate [Moles/Vol] 1.3 mmol/L Normal 0.4-1.9 [facility] Comment on above: Performed By: #### L ACT ####[facility] Tfdezqfdyf2[address] [place], [place] [address]Dr. Tadeo Smyth LIPASEon 08-08-2022 Lipase [Catalytic activity/Vol] 120.0 U/L Normal 73.0-393.0 [facility] Comment on above: Performed By: #### C MP, VIJI, LIPA, CMADM ####[facility] Mxvhcjbwhb4209 [place] [address]Dr. Tadeo Smyth PROF 14(COMP METB)on 022 Albumin [Mass/Vol] 3.8 g/dL Normal 3.4-5.0 [facility] Comment on above: Performed By: #### C MP, VIJI, LIPA, CMADM ####[facility] Wykxyjnlso2173 [place] [address]Dr. Tadeo Smyth Albumin/Globulin [Mass ratio] 1.1 {ratio} Normal [facility] Comment on above: Performed By: #### C MP, VIJI, LIPA, CMADM ####[facility] Qrboamoyen37[address] [place] [address]Dr. Tadeo Smyth ALP [Catalytic activity/Vol] 145 U/L Critically high 46-116 [facility] Comment on above: Performed By: #### C MP, VIJI, LIPA, CMADM ####[facility] Abiefenbnk7[address] [place] [address]Dr. Tadeo Smyth ALT [Catalytic activity/Vol] 30 U/L Normal 14-59 [facility] Comment on above: Performed By: #### C MP, VIJI, LIPA, CMADM ####[facility] Uvqzesybos9494 [place] [address]Dr. Tadeo Smyth Anion gap [Moles/Vol] 11.5 mmol/L Normal [facility] Comment on above: Performed By: #### C MP, VIJI, LIPA, CMADM ####[facility] Amelmghxsh1574 [place] [address]Dr. Tadeo Smyth AST [Catalytic activity/Vol] 17 U/L Normal 15-37 [facility] Comment on above: Performed By: #### C MP, VIJI, LIPA, CMADM ####[facility] Fsrjxtkzwt8417 [place] [address]Dr. Taedo Smyth Bilirubin [Mass/Vol] 0.1 mg/dL Critically low 0.2-1.0 [facility] Comment on above: Performed By: #### C MP, VIJI, LIPA, CMADM ####[facility] Ifqpmwggao[address] [place], [place] [address]Dr. Tadeo Smyth Calcium [Mass/Vol] 8.9 mg/dL Normal 8.5-10.1 [facility] Comment on above: Performed By: #### C MP, VIJI, LIPA, CMADM ####[facility] Dgtksxwhwt5959 [place] [address]Dr. Tadeo Smyth Chloride [Moles/Vol] 104 mmol/L Normal 98-107 [facility] Comment on above: Performed By: #### C MP, VIJI, LIPA, CMADM ####[facility] Jmpspndgly[address] [place], [place] [address]Dr. Tadeo Smyth CO2 [Moles/Vol] 27.2 mmol/L Normal 21.0-32.0 [facility] Comment on above: Performed By: #### C MP, VIJI, LIPA, CMADM ####[facility] Hfuvtdkmvz4059 [place] [address]Dr. Tadeo Smyth Creatinine [Mass/Vol] 0.90 mg/dL Normal 0.55-1.02 [facility] Comment on above: Performed By: #### C MP, VIJI, LIPA, CMADM ####[facility] Zclfaqewek1797 [place] [address]Dr. Tadeo Smyth EGFR-AF KENYAN >60 Normal >=60 [facility] Comment on above: Performed By: #### C MP, VIJI, LIPA, CMADM ####[facility] Yspmymcxfv4035 [place] [address]Dr. Tadeo Smyth EGFR-NON AF KENYAN >60 Normal >=60 [facility] Comment on above: Performed By: #### C MP, VIJI, LIPA, CMADM ####[facility] Dcwcfswkmm9951 [place] [address]Dr. Tadeo Smyth Globulin (S) [Mass/Vol] 3.5 g/dL Normal [facility] Comment on above: Performed By: #### C MP, VIJI, LIPA, CMADM ####[facility] Nzhjlvwozg[address] [place], [place] [address]Dr. Tadeo Smyth Glucose [Mass/Vol] 98 mg/dL Normal 74-106 [facility] Comment on above: Performed By: #### C MP, VIJI, LIPA, CMADM ####[facility] Zgjshjcfsy4389 [place] [address]Dr. Tadeo Smyth Potassium [Moles/Vol] 3.7 mmol/L Normal 3.5-5.1 [facility] Comment on above: Performed By: #### C MP, VIJI, LIPA, CMADM ####[facility] Xkntxitneu7864 [place] [address]Dr. Tadeo Smyth Protein [Mass/Vol] 7.3 g/dL Normal 6.4-8.2 [facility] Comment on above: Performed By: #### C MP, VIJI, LIPA, CMADM ####[facility] Dlctlrcjmv6993 [place] [address]Dr. Tadeo Smyth Sodium [Moles/Vol] 139 mmol/L Normal 136-145 [facility] Comment on above: Performed By: #### C VIJI GARCIA LIPA, CMADM ####[facility] Tdmvxxdnwr9298 [place] [address]Dr. Tadeo Smyth Urea nitrogen [Mass/Vol] 25.0 mg/dL Critically high 7.0-18.0 [facility] Comment on above: Performed By: #### C VIJI GARCIA LIPA, CMADM ####[facility] Plfzzhleic0625 [place] [address]Dr. Tadeo Smyth Urea nitrogen/Creatinine [Mass ratio] 27.8 mg/mg Normal [facility] Comment on above: Performed By: #### C VIJI GARCIA LIPA, CMAMARGARITO ####[facility] Rojtecmevi[address] [place] [address]Dr. Tadeo Smyth URINE MICROSCOPIC ONLYon BACTERIA NONE SEEN Normal NONE SEEN [facility] Comment on above: Performed By: #### SANDRO MERCHANTRO ####[facility] [address]lptdxtfgs[address] [place], [place] [address]Dr. Tadeo Smyth Bacteria identified Cx Nom (U) NOT INDICATED Normal [facility] Comment on above: Performed By: #### KAROL MERCHANT ####[facility] Vdyslzkclu68[address] [place] [address]Dr. Tadeo Smyth CAST NONE SEEN Normal NONE SEEN [facility] Comment on above: Performed By: #### SANDRO MERCHANTRO ####[facility] Csbczkaetu98[address] [place] [address]Dr. Tadeo Smyth Crystals LM Nom (Urine sed) NONE SEEN Normal NONE SEEN [facility] Comment on above: Performed By: #### SANDRO MERCHANTRO ####[facility] [address]epnxqoyz[address] [place], [place] [address]Dr. Tadeo Smyth Epithelial cells LM Ql (Urine sed) FEW Abnormal NONE SEEN /RARE [facility] Comment on above: Performed By: #### SANDRO MERCHANTRO ####[facility] Mqdtparjkk[address] [place], [place] [address]Dr. Yinicole Smyth MUCOUS NONE SEEN Normal NONE SEEN [facility] Comment on above: Performed By: #### SANDRO MERCHANTRO ####[facility] Sumzoesuwf[address] [place], [place] [address]Yf. Margotnicole Smyth RBC 2-5 Abnormal 0-2 [facility] Comment on above: Performed By: #### Matthew FRANCISCO UMICRO ####[facility] Tsgowrcwpz78[address] [place], [place] [address]Ed. Tadeo Smyth WBC NONE SEEN Normal NONE SEEN [facility] Comment on above: Performed By: #### SANDRO MERCHANTRO ####[facility] [address]ubl[address]ocidj[address] [place], [place] [address]Vo. Tadeo Smyth Gastroenterology Office/Clin ic Noteon 07-24-2022 [...] Nunez to record this visit. JOSE FRANCISCO digital content specialist and provider reviewed before signing. JOSE [...] 10 mg= (more content not included)... Normal [facility] Comment on above: Result Comment: Elec tronically Signed By: Agata Nunes\.br\Date and Time Signed: 07/22/22 16:25 EST\.br\Electronically Co-Signed By: nAai REAGAN MD\.br\Date and Time Co-Signed: 07/24/22 15:06 EST AMYLASEon 07-21-2022 Amylase [Catalytic activity/Vol] 49 U/L Normal 25-115 [facility] [place] [facility] Comment on above: Performed By: #### L IPA, VIJI, CMP ####[facility] [address] [place] [address]Dr. Tadeo Haja CBC AUTO DIFFon 07-21-2022 BASO # 0.0 103/ul Normal 0.0-0.1 [facility] [place] [facility] Comment on above: Performed By: #### C BC ####[facility] Rxrnyozjpy[address] [place] [address]Dr. Tadeo Smyth Basophils/100 WBC (Bld) 0.6 % Normal 0.2-2.0 [facility] [place] [facility] Comment on above: Performed By: #### C BC ####[facility] Wb[address]omwqs[address] [place], [place] [address]Dr. Tadeo Smyth EO # 0.2 103/ul Normal 0.0-0.7 [facility] Comment on above: Performed By: #### C BC ####[facility] Itkfkczvmx[address] [place], [place] [address]Dr. Tadeo Smyth Eosinophils/100 WBC (Bld) 3.1 % Normal 0.9-7.0 [facility] Comment on above: Performed By: #### C BC ####[facility] Xrfxxlwdey[address] [place], [place] [address]Dr. Tadeo Smyth Erythrocyte distribution width (RBC) [Ratio] 13.2 % Normal 11.0-15.0 [facility] [place] [facility] Comment on above: Performed By: #### C BC ####[facility] Dlprlcyksu[address] [place], [place] [address]Dr. Tadeo Smyth Hematocrit (Bld) [Volume fraction] 35.7 % Critically low 36.0-48.0 [facility] Comment on above: Performed By: #### C BC ####[facility] Wxntwwmegs[address] [place], [place] [address]Dr. Tadeo Smyth Hemoglobin (Bld) [Mass/Vol] 11.6 g/dL Critically low 12.0-16.0 [facility] Comment on above: Performed By: #### C BC ####[facility] Zmjceothvy[address] [place], [place] [address]Dr. Tadeo Smyth IG # 0.01 10e3/ul Normal 0.00-0.03 [facility] [place] [facility] Comment on above: Performed By: #### C BC ####[facility] A[address]ewiztj[address] [place] [address]Dr. Tadeo Smyth IG % 0.2 % Normal 0.0-0.5 [facility] [place] [facility] Comment on above: Performed By: #### C BC ####[facility] Vtcbigdhfj[address] [place], [place] [address]Dr. Tadeo Smyth LYMPH # 1.9 103/ul Normal 1.2-3.8 [facility] [place] [facility] Comment on above: Performed By: #### C BC ####[facility] Ddqntcxhsu5[address] [place], [place] [address]DrNeo Tadeo Smyth Lymphocytes/100 WBC (Bld) 34.8 % Normal 20.5-60.0 [facility] [place] [facility] Comment on above: Performed By: #### C BC ####[facility] Rqaiukcznb[address] [place], [place] [address]Dr. Tadeo Smyth MANUAL DIFF REQ NO Normal [facility] [place] [facility] Comment on above: Performed By: #### C BC ####[facility] Ujpedlrrlp[address] [place], [place] [address]Dr. Tadeo Smyth MCH (RBC) [Entitic mass] 29.1 pg Normal 26.7-34.0 [facility] [place] [facility] Comment on above: Performed By: #### C BC ####[facility] Bvpvxszbqf[address] [place], [place] [address]Dr. Tadeo Smyth MCHC (RBC) [Mass/Vol] 32.5 g/dL Normal 29.9-35.2 [facility] Comment on above: Performed By: #### C BC ####[facility] Yvxijnxmml[address] [place], [place] [address]DrNeo Tadeo Smyth MCV (RBC) [Entitic vol] 89.7 fL Normal 81.0-99.0 [facility] [place] [facility] Comment on above: Performed By: #### C BC ####[facility] Ntxqzsnglp[address] [place], [place] [address]DrNeo Tadeo Haja MONO # 0.3 103/ul Normal 0.3-0.8 [facility] [place] [facility] Comment on above: Performed By: #### C BC ####[facility] Pseeltxfwi[address] [place] [address]Dr. Tadeo Smyth Monocytes/100 WBC (Bld) 6.1 % Normal 1.7-12.0 [facility] [place] [facility] Comment on above: Performed By: #### C BC ####[facility] Ztuef[address]ufok[address] [place] [address]Dr. Tadeo Smyth NEUT # 3.0 103/ul Normal 1.4-6.5 [facility] [place] [facility] Comment on above: Performed By: #### C BC ####[facility] Pbllnbqeke[address] [place] [address]Dr. Tadeo Smyth Neutrophils/100 WBC (Bld) 55.2 % Normal 43.0-75.0 [facility] [place] [facility] Comment on above: Performed By: #### C BC ####[facility] Egekgriyle[address] [place] [address]Dr. Tadeo Smyth Platelet mean volume (Bld) [Entitic vol] 9.0 fL Critically low 9.5-13.5 [facility] [place] [facility] Comment on above: Performed By: #### C BC ####[facility] Kdqowxwlbz[address] [place] [address]Dr. Tadeo Smyth PLT 358 103/ul Normal 150-450 [facility] Comment on above: Performed By: #### C BC ####[facility] Ztmqvazfjm84[address] [place] [address]Dr. Tadeo Smyth RBC 3.98 106/ul Critically low 4.20-5.40 [facility] Comment on above: Performed By: #### C BC ####[facility] [address] [place] [address]Dr. Tadeo Symth WBC 5.4 103/ul Normal 4.0-11.0 [facility] Comment on above: Performed By: #### C BC ####[facility] Ikjrykmdni[address] [place] [address]Dr. Tadeo Smyth LIPASEon 07-21-2022 Lipase [Catalytic activity/Vol] 54.0 U/L Critically low 73.0-393.0 [facility] Comment on above: Performed By: #### L VIJI HALL, CMP ####[facility] T[address]inamzar[address] [place] [address]Dr. Tadeo Smyth PROF 14(COMP METB)on 022 Albumin [Mass/Vol] 3.5 g/dL Normal 3.4-5.0 [facility] [place] [facility] Comment on above: Performed By: #### L VIJI HALL, CMP ####[facility] Gweescgbgz[address] [place] [address]Dr. Tadeo Smyth Albumin/Globulin [Mass ratio] 0.9 {ratio} Normal [facility] [place] [facility] Comment on above: Performed By: #### L VIJI HALL, CMP ####[facility] Msxyxwuhiw16[address] [place] [address]Dr. Tadeo Smyth ALP [Catalytic activity/Vol] 127 U/L Critically high 46-116 [facility] Comment on above: Performed By: #### L VIJI HALL, CMP ####[facility] Ozaeivbknz[address] [place], [place] [address]Dr. Tadeo Smyth ALT [Catalytic activity/Vol] 16 U/L Normal 14-59 [facility] Comment on above: Performed By: #### L VIJI HALL, CMP ####[facility] Yfkwbuyptd9199[address] [place], [place] [address]Dr. Tadeo Smyth Anion gap [Moles/Vol] 10.6 mmol/L Normal [facility] Comment on above: Performed By: #### L VIJI HALL, CMP ####[facility] Ezsgdsbfve6834 [place] [address]Dr. Tadeo Smyth AST [Catalytic activity/Vol] 16 U/L Normal 15-37 [facility] Comment on above: Performed By: #### L VIJI HALL, CMP ####[facility] Buptmrvnus[address] [place], [place] [address]Dr. Tadeo Smyth Bilirubin [Mass/Vol] 0.3 mg/dL Normal 0.2-1.0 [facility] Comment on above: Performed By: #### L VIJI HALL, CMP ####[facility] Jwhkwaxmsw34[address] [place] [address]Dr. Tadeo Smyth Calcium [Mass/Vol] 9.1 mg/dL Normal 8.5-10.1 [facility] Comment on above: Performed By: #### L VIJI HALL, CMP ####[facility] [address]zts[address]ytbg[address] [place] [address]Dr. Tadeo Smyth Chloride [Moles/Vol] 104 mmol/L Normal 98-107 [facility] Comment on above: Performed By: #### L VIJI HALL, CMP ####[facility] Qfablpeaqw6[address] [place] [address]Dr. Tadeo Smyth CO2 [Moles/Vol] 28.0 mmol/L Normal 21.0-32.0 [facility] Comment on above: Performed By: #### L VIJI HALL, CMP ####[facility] Foxtslfisr26[address] [place], [place] [address]Dr. Tadeo Smyth Creatinine [Mass/Vol] 0.96 mg/dL Normal 0.55-1.02 [facility] Comment on above: Performed By: #### L VIJI HALL, CMP ####[facility] Jnvbqdhepc24[address] [place], [place] [address]Dr. Tadeo Smyth EGFR-AF KENYAN >60 Normal >=60 [facility] Comment on above: Performed By: #### L VIJI HALL, CMP ####[facility] Xtogzxwfwp[address] [place], [place] [address]Dr. Tadeo Smyth EGFR-NON AF KENYAN >60 Normal >=60 [facility] Comment on above: Performed By: #### L VIJI HALL, CMP ####[facility] Qoeuuiyscc2[address] [place], [place] [address]Dr. Tadeo Smyth Globulin (S) [Mass/Vol] 3.8 g/dL Normal [facility] Comment on above: Performed By: #### L VIJI HALL, CMP ####[facility] Zlygjuspza[address] [place], [place] [address]Dr. Tadeo Smyth Glucose [Mass/Vol] 93 mg/dL Normal 74-106 [facility] Comment on above: Performed By: #### L VIJI HALL, CMP ####[facility] Pwrdsicchb[address] [place] [address]Dr. Tadeo Smyth Potassium [Moles/Vol] 3.6 mmol/L Normal 3.5-5.1 [facility] Comment on above: Performed By: #### L VIJI HALL, CMP ####[facility] Kxgsnszqtx35[address] [place] [address]Dr. Tadeo Smyth Protein [Mass/Vol] 7.3 g/dL Normal 6.4-8.2 [facility] Comment on above: Performed By: #### L VIJI HALL, CMP ####[facility] Lyhokethll[address] [place], [place] [address]Dr. Tadeo Smyth Sodium [Moles/Vol] 139 mmol/L Normal 136-145 [facility] Comment on above: Performed By: #### L VIJI HALL, CMP ####[facility] Oxvdwxyafn[address] [place], [place] [address]Dr. Tadeo Smyth Urea nitrogen [Mass/Vol] 16.0 mg/dL Normal 7.0-18.0 [facility] Comment on above: Performed By: #### L VIJI HALL, CMP ####[facility] Pmxlxfwpbs3[address] [place], [place] [address]Dr. Tadeo Smyth Urea nitrogen/Creatinine [Mass ratio] 16.7 mg/mg Normal [facility] Comment on above: Performed By: #### L VIJI HALL, CMP ####[facility] Jvxgfszttl[address] [place], [place] [address]Dr. Tadeo Smyth XR ABD FLAT UP_PA Kasey 07-21 XR ABD FLAT UP_PA CH Normal [facility] CULTURE URINEon 07-10-2022 CULTURE URINE Normal [facility] Comment on above: Performed By: #### U RCX ####[facility] Bkirblevrk[address] [place], [place] [address]Dr. Tadeo Haja INSULINon 07-09-2022 Insulin 15.9 uIU/mL Normal 2.6-24.9 [facility] Comment on above: Performed By: #### I NSULIN ####[facility] [address] [place] [address]Dr. Tadeo Smyth CBC AUTO DIFFon 07-08-2022 BASO # 0.0 103/ul Normal 0.0-0.1 [facility] Comment on above: Performed By: #### C BC ####[facility] Qooprlfpyk[address] [place], [place] [address]Dr. Margotnicole Smyth Basophils/100 WBC (Bld) 0.6 % Normal 0.2-2.0 [facility] Comment on above: Performed By: #### C BC ####[facility] Xnwwracfwa[address] [place], [place] [address]Dr. Margotnicole Smyth EO # 0.2 103/ul Normal 0.0-0.7 [facility] Comment on above: Performed By: #### C BC ####[facility] Riblpqxmcz456[address] [place], [place] [address]Dr. Tadeo Smyth Eosinophils/100 WBC (Bld) 3.4 % Normal 0.9-7.0 [facility] Comment on above: Performed By: #### C BC ####[facility] Aeoeykhufp[address] [place], [place] [address]Dr. Margotnicole Smyth Erythrocyte distribution width (RBC) [Ratio] 13.1 % Normal 11.0-15.0 [facility] [place] [facility] Comment on above: Performed By: #### C BC ####[facility] Ztasrruoaq[address] [place], [place] [address]Dr. Margotnicole Smyth Hematocrit (Bld) [Volume fraction] 42.4 % Normal 36.0-48.0 [facility] Comment on above: Performed By: #### C BC ####[facility] Rvpupvbghw150[address] [place], [place] [address]Dr. Margotnicole Smyth Hemoglobin (Bld) [Mass/Vol] 13.7 g/dL Normal 12.0-16.0 [facility] Comment on above: Performed By: #### C BC ####[facility] Ftyxdmdcis[address] [place], [place] [address]Dr. Tadeo Smyth IG # 0.01 10e3/ul Normal 0.00-0.03 [facility] Comment on above: Performed By: #### C BC ####[facility] Qsjthhewdp7[address] [place] [address]Dr. Tadeo Smyth IG % 0.2 % Normal 0.0-0.5 [facility] Comment on above: Performed By: #### C BC ####[facility] Wellmobknv[address] [place] [address]Dr. Tadeo Smyth LYMPH # 2.1 103/ul Normal 1.2-3.8 [facility] Comment on above: Performed By: #### C BC ####[facility] Xujrppziga[address] [place] [address]Dr. Tadeo Smyth Lymphocytes/100 WBC (Bld) 41.2 % Normal 20.5-60.0 [facility] Comment on above: Performed By: #### C BC ####[facility] Kntgvdasij0[address] [place], [place] [address]Dr. Tadeo Smyth MANUAL DIFF REQ NO Normal [facility] Comment on above: Performed By: #### C BC ####[facility] Rjmzpzprvr[address] [place], [place] [address]Dr. Tadeo Smyth MCH (RBC) [Entitic mass] 28.8 pg Normal 26.7-34.0 [facility] Comment on above: Performed By: #### C BC ####[facility] Kolffzgfyw[address] [place], [place] [address]Dr. Tadeo Smyth MCHC (RBC) [Mass/Vol] 32.3 g/dL Normal 29.9-35.2 [facility] Comment on above: Performed By: #### C BC ####[facility] Qqikntvwcv[address] [place], [place] [address]Dr. Tadeo Smyth MCV (RBC) [Entitic vol] 89.3 fL Normal 81.0-99.0 [facility] Comment on above: Performed By: #### C BC ####[facility] Uaeolvfply[address] [place] [address]Dr. Tadeo Haja MONO # 0.4 103/ul Normal 0.3-0.8 [facility] Comment on above: Performed By: #### C BC ####[facility] Auoxwosclo9356 [place] [address]Dr. Tadeo Smyth Monocytes/100 WBC (Bld) 8.1 % Normal 1.7-12.0 [facility] Comment on above: Performed By: #### C BC ####[facility] Rluloilvcx2238 [place] [address]Dr. Tadeo Smyth NEUT # 2.4 103/ul Normal 1.4-6.5 [facility] Comment on above: Performed By: #### C BC ####[facility] Yicphglkxd6172 [place] [address]Dr. Tadeo Smyth Neutrophils/100 WBC (Bld) 46.5 % Normal 43.0-75.0 [facility] Comment on above: Performed By: #### C BC ####[facility] Zixgtojtks6843 [place] [address]Dr. Tadeo Smyth Platelet mean volume (Bld) [Entitic vol] 9.3 fL Critically low 9.5-13.5 [facility] Comment on above: Performed By: #### C BC ####[facility] Mtsgqpbshu54[address] [place] [address]Dr. Tadeo Smyth PLT 443 103/ul Normal 150-450 [facility] Comment on above: Performed By: #### C BC ####[facility] Frjdkibkfc7140 [place] [address]Dr. Tadeo Smyth RBC 4.75 106/ul Normal 4.20-5.40 [facility] Comment on above: Performed By: #### C BC ####[facility] Glsdmpoyvc[address] [place], [place] [address]Dr. Tadeo Smyth WBC 5.1 103/ul Normal 4.0-11.0 [facility] Comment on above: Performed By: #### C BC ####[facility] Rsvzfpszyh[address] [place], [place] [address]Dr. Tadeo Smyth FREE THYROXINE INDEX T7on 1 09-07-2021 FTI 2.91 Normal 1.30-4.50 [facility] Comment on above: Performed By: #### T 7, LIPID, TSH, CMP ####[facility] Nanoflmunw[address] [place] [address]Dr. Tadeo Smyth T3U 31.0 % Normal 30.0-39.0 [facility] Comment on above: Performed By: #### T 7, LIPID, TSH, CMP ####[facility] Lsxckcszjz3[address] [place] [address]Dr. Tadeo Smyth T4 [Mass/Vol] 9.40 ug/dL Normal 4.80-13.90 [facility] Comment on above: Performed By: #### T 7, LIPID, TSH, CMP ####[facility] Ngxoxdedmk[address] [place] [address]Dr. Tadeo Smyth GLYCOHEMOGLOBIN A1Con 2021 ADA RECOMMENDATION SEE BELOW Normal [facility] Comment on above: Result Comment: ADA RECOMMENDED LIMIT 4.0 - 6.0 ADA THERAPEUTIC TARGET < 7.0 ACTION SUGGESTED > 7.0 Performed By: #### A 1C ####[facility] Btytimqtez[address] [place], [place] [address]Dr. Tadeo Smyth Glucose [Mass/Vol] 120 mg/dL Normal [facility] Comment on above: Performed By: #### A 1C ####[facility] Iqhkslcpxb[address] [place], [place] [address]Dr. Tadeo Smyth HbA1c (Bld) [Mass fraction] 5.8 % Normal 4.5-6.2 [facility] Comment on above: Performed By: #### A 1C ####[facility] Ewqriurume[address] [place], [place] [address]Dr. Tadeo Smyth IRONon 07-08-2022 Iron [Mass/Vol] 59.0 ug/dL Normal 50.0-170.0 [facility] Comment on above: Performed By: #### I KEEGAN ####[facility] Aqzzkqupta[address] [place], [place] [address]Dr. Tadeo Smyth LIPID PROFILEon 07-08-2022 CHOL-HDL RATIO NORM SEE BELOW Normal [facility] Comment on above: Result Comment: 3.3 - 4.4 LOW RISK 4.4 - 7.1 AVERAGE RISK 7.1 - 11.0 MODERATE RISK >11.0 HIGH RISK Performed By: #### T 7, LIPID, TSH, CMP ####[facility] Aybwh[address]zzly[address] [place] [address]Dr. Tadeo Smyth Cholesterol [Mass/Vol] 227 mg/dL Critically high <=200 [facility] Comment on above: Performed By: #### T 7, LIPID, TSH, CMP ####[facility] Prntiwfplm4[address] [place] [address]Dr. Tadeo Smyth Cholesterol in HDL [Mass/Vol] 67 mg/dL Critically high 40-60 [facility] Comment on above: Performed By: #### T 7, LIPID, TSH, CMP ####[facility] Cpjcuyzmgs[address] [place] [address]Dr. Tadeo Smyth Cholesterol in LDL [Mass/Vol] 139.0 mg/dL Normal [facility] Comment on above: Performed By: #### T 7, LIPID, TSH, CMP ####[facility] Dodlwqzjne[address] [place], [place] [address]Dr. Tadeo Smyth Cholesterol.total/Cho lesterol in HDL [Mass ratio] 3.4 {ratio} Normal [facility] Comment on above: Performed By: #### T 7, LIPID, TSH, CMP ####[facility] Ngrckmvlzr7[address] [place] [address]Dr. Tadeo Smyth HDL NORMAL > or = 60 mg/dl - LO W CARDIOVASCULAR RISK <40 mg/dl - HIGH CARDIOVASCULAR RISK Normal [facility] Comment on above: Performed By: #### T 7, LIPID, TSH, CMP ####[facility] Bblivnlrdw57[address] [place] [address]Dr. Tadeo Smyth LDL CALC NORMAL SEE BELOW Normal [facility] Comment on above: Result Comment: <100 mg/dl OPTIMAL 100 - 129 mg/dl NEAR OR ABOVE OPTIMAL 130 - 159 mg/dl BORDERLINE HIGH 160 - 189 mg/dl HIGH >190 mg/dl VERY HIGH Performed By: #### T 7, LIPID, TSH, CMP ####[facility] Yvfdnbhwmt34[address] [place] [address]Dr. Tadeo Smyth Triglyceride [Mass/Vol] 105 mg/dL Normal <=150 [facility] Comment on above: Performed By: #### T 7, LIPID, TSH, CMP ####[facility] Wcmnyqeihh[address] [place] [address]Dr. Tadeo Smyth VLDL CALC 21.0 mg/dL Normal [facility] Comment on above: Performed By: #### T 7, LIPID, TSH, CMP ####[facility] Ridtgsxfss[address] [place] [address]Dr. Tadeo Smyth OCC BLD IMMUNO SCREENon 11 OCCULT BLOOD Negative Normal NEGATIVE [facility] Comment on above: Performed By: #### O BSCRN ####[facility] Tuuujeicye[address] [place] [address]Dr. Tadeo Smyth PROF 14(COMP METB)on 022 Albumin [Mass/Vol] 3.7 g/dL Normal 3.4-5.0 [facility] Comment on above: Performed By: #### T 7, LIPID, TSH, CMP ####[facility] Srdtzrjztw5[address] [place] [address]Dr. Tadeo Smyth Albumin/Globulin [Mass ratio] 0.8 {ratio} Normal [facility] Comment on above: Performed By: #### T 7, LIPID, TSH, CMP ####[facility] Ssvrrhpida[address] [place] [address]Dr. Tadeo Smyth ALP [Catalytic activity/Vol] 141 U/L Critically high 46-116 [facility] Comment on above: Performed By: #### T 7, LIPID, TSH, CMP ####[facility] Erejocqsou[address] [place] [address]Dr. Tadeo Smyth ALT [Catalytic activity/Vol] 23 U/L Normal 14-59 [facility] Comment on above: Performed By: #### T 7, LIPID, TSH, CMP ####[facility] Hcwgaiepxm[address] [place] [address]Dr. Tadeo Smyth Anion gap [Moles/Vol] 9.8 mmol/L Normal [facility] Comment on above: Performed By: #### T 7, LIPID, TSH, CMP ####[facility] Veolmvzkqy8[address] [place] [address]Dr. Tadeo Smyth AST [Catalytic activity/Vol] 13 U/L Critically low 15-37 [facility] Comment on above: Performed By: #### T 7, LIPID, TSH, CMP ####[facility] [address]bxpekwpzv[address] [place], [place] [address]Dr. Tadeo Smyth Bilirubin [Mass/Vol] 0.4 mg/dL Normal 0.2-1.0 [facility] Comment on above: Performed By: #### T 7, LIPID, TSH, CMP ####[facility] Bclrtqmyoi8[address] [place], [place] [address]Dr. Tadeo Smyth Calcium [Mass/Vol] 10.2 mg/dL Critically high 8.5-10.1 [facility] Comment on above: Performed By: #### T 7, LIPID, TSH, CMP ####[facility] Timsorvuea[address] [place], [place] [address]Dr. Tadeo Smyth Chloride [Moles/Vol] 101 mmol/L Normal 98-107 [facility] Comment on above: Performed By: #### T 7, LIPID, TSH, CMP ####[facility] Ngxknddalp[address] [place], [place] [address]Dr. Tadeo Smyth CO2 [Moles/Vol] 32.8 mmol/L Critically high 21.0-32.0 [facility] Comment on above: Performed By: #### T 7, LIPID, TSH, CMP ####[facility] Iaoelmxoyl[address] [place], [place] [address]Dr. Tadeo Smyth Creatinine [Mass/Vol] 0.92 mg/dL Normal 0.55-1.02 [facility] Comment on above: Performed By: #### T 7, LIPID, TSH, CMP ####[facility] Auxgjdqlma[address] [place], [place] [address]Dr. Tadeo Smyth EGFR-AF KENYAN >60 Normal >=60 [facility] Comment on above: Performed By: #### T 7, LIPID, TSH, CMP ####[facility] Tlnzqhtrfg[address] [place], [place] [address]Dr. Tadeo Smyth EGFR-NON AF KENYAN >60 Normal >=60 [facility] Comment on above: Performed By: #### T 7, LIPID, TSH, CMP ####[facility] [facility] [address] [place] [address]Dr. Tadeo Smyth Globulin (S) [Mass/Vol] 4.8 g/dL Normal [facility] [place] [facility] Comment on above: Performed By: #### T 7, LIPID, TSH, CMP ####[facility] Zvfcfdczch[address] [place] [address]Dr. Tadeo Smyth Glucose [Mass/Vol] 114 mg/dL Critically high 74-106 [facility] Comment on above: Performed By: #### T 7, LIPID, TSH, CMP ####[facility] Afzetsfquw[address] [place], [place] [address]Dr. Tadeo Smyth Potassium [Moles/Vol] 3.6 mmol/L Normal 3.5-5.1 [facility] [place] [facility] Comment on above: Performed By: #### T 7, LIPID, TSH, CMP ####[facility] Vfznhotqda[address] [place], [place] [address]Dr. Tadeo Smyth Protein [Mass/Vol] 8.5 g/dL Critically high 6.4-8.2 [facility] Comment on above: Performed By: #### T 7, LIPID, TSH, CMP ####[facility] Ncwilieokh[address] [place], [place] [address]Dr. Tadeo Smyth Sodium [Moles/Vol] 140 mmol/L Normal 136-145 [facility] [place] [facility] Comment on above: Performed By: #### T 7, LIPID, TSH, CMP ####[facility] Dhlfvdiraf[address] [place], [place] [address]Dr. Tadeo Smyth Urea nitrogen [Mass/Vol] 23.0 mg/dL Critically high 7.0-18.0 [facility] [place] [facility] Comment on above: Performed By: #### T 7, LIPID, TSH, CMP ####[facility] Rmvbozisiz[address] [place], [place] [address]Dr. Tadeo Smyth Urea nitrogen/Creatinine [Mass ratio] 25.0 mg/mg Normal [facility] [place] [facility] Comment on above: Performed By: #### T 7, LIPID, TSH, CMP ####[facility] [address] [place] [id number]. Margotnicole Haja TSHon 07-08-2022 TSH 3.748 uIU/mL Critically high 0.358-3.740 [facility] Comment on above: Performed By: #### T 7, LIPID, TSH, CMP ####[facility] Fwpuvdjlst[address] [place] [address]Dr. Tadeo Smyth UA RANDOM W/MICROSCOPICon BACTERIA TRACE Abnormal NONE SEEN [facility] Comment on above: Performed By: #### U AMIC ####[facility] [address]bwakx[address] [place] [address]Dr. Tadeo Smyth Bilirubin Ql (U) Negative Normal NEGATIVE [facility] Comment on above: Performed By: #### U AMIC ####[facility] Hzxcaaabfs25[address] [place] [address]Dr. Tadeo Smyth CAST NONE SEEN Normal NONE SEEN [facility] Comment on above: Performed By: #### U AMIC ####[facility] Biqgqsgoop[address] [place] [address]Dr. Tadeo Smyth Clarity (U) CLEAR Normal CLEAR [facility] Comment on above: Performed By: #### U AMIC ####[facility] Jpgjeefskj35[address] [place] [address]Dr. Tadeo Smyth Color (U) YELLOW Normal YELLOW [facility] Comment on above: Performed By: #### U AMIC ####[facility] Cmfeseozhr4[address] [place] [address]Dr. Tadeo Smyth Crystals LM Nom (Urine sed) NONE SEEN Normal NONE SEEN [facility] Comment on above: Performed By: #### U AMIC ####[facility] Hiwomwkogz[address] [place], [place] [address]Dr. Tadeo Smyth Epithelial cells LM Ql (Urine sed) FEW Abnormal NONE SEEN /RARE [facility] Comment on above: Performed By: #### U AMIC ####[facility] Bhbbczhfyn355[address] [place], [place] [address]Dr. Tadeo Smyth Glucose Ql (U) Negative Normal NEGATIVE [facility] Comment on above: Performed By: #### U AMIC ####[facility] Dorrvcaknx[address] [place] [address]Dr. Tadeo Smyth Hemoglobin Ql (U) SMALL Abnormal NEGATIVE [facility] Comment on above: Performed By: #### U AMIC ####[facility] Rxpuydyhko[address] [place] [address]Dr. Tadeo Smyth Ketones Ql (U) TRACE Abnormal NEGATIVE [facility] Comment on above: Performed By: #### U AMIC ####[facility] Ucqsqyaycu[address] [place], [place] [address]Dr. Tadeo Smyth LEUKOCYTES TRACE Abnormal NEGATIVE [facility] Comment on above: Performed By: #### U AMIC ####[facility] Ulrqyjjgqc3175[address] [place], [place] [address]Dr. Tadeo Smyth MUCOUS NONE SEEN Normal NONE SEEN [facility] Comment on above: Performed By: #### U AMIC ####[facility] Dzdhevdiei40[address] [place], [place] [address]Dr. Tadeo Smyth Nitrite Ql (U) Negative Normal NEGATIVE [facility] Comment on above: Performed By: #### U AMIC ####[facility] Pgnlzuyhzh14[address] [place], [place] [address]Dr. Tadeo Smyth pH (U) 6.5 [pH] Normal 5-9 [facility] Comment on above: Performed By: #### U AMIC ####[facility] Vqshnfolth4[address] [place], [place] [address]Dr. Tadeo Smyth RBC 5-10 Abnormal 0-2 [facility] Comment on above: Performed By: #### U AMIC ####[facility] Rjtjkycgmg67[address] [place], [place] [address]Dr. Tadeo Smyth SPEC GRAVITY 1.020 Normal 1.005-<=1.0 25 [facility] Comment on above: Performed By: #### U AMIC ####[facility] Dvkkzgxlvv2490[address] [place], [place] [address]Dr. Tadeo Smyth UA PROTEIN 30 mg/dl Abnormal NEGATIVE/ TRACE [facility] Comment on above: Performed By: #### U AMIC ####[facility] Qrulcgwqgn0769 [place], [place] [address]At. Tadeo Smyth Urobilinogen Qn (U) 0.2 {Benito'U}/dL Normal 0.2 - 1. 0 [facility] Comment on above: Performed By: #### U AMIC ####[facility] Rfflmjmqhl8723 [place], [place] [address]Hu. Tadeo Smyth WBC 2-5 Abnormal NONE SEEN [facility] Comment on above: Performed By: #### U AMIC ####[facility] Bcnwsxqdqz0372 [place], [place] [address]Ur. Tadeo Haja Covid-19 PCR (CVDTBH)on 06-07 SARS-CoV-2 (COVID-19) RNA CHEN+probe Ql (Unsp spec) Not detected Normal NOT DETECTED [facility] Comment on above: Result Comment: When [...] for this test is supported by the [employer]line [employer] Agent of Health and Human Service's declaration that [...] be used). Performed By: #### C VDTBH ####[facility] S[address]rahpuww[address] [place] [id number]. Tadeo Haja CULTURE URINEon 06-09-2022 CULTURE URINE Normal [facility] Comment on above: Performed By: #### U RCX ####[facility] Ikxpbtspzs35[address] [place] [address]Dr. Tadeo Smyth GI PANEL (PCR)on 06-07-2022 Adenovirus F 40/41 Not detected Normal NOT DETECTED [facility] Comment on above: Performed By: #### G IPANEL ####[facility] Sscjwvacod[address] [place], [place] [address]Dr. Tadeo Smyth Astrovirus Not detected Normal NOT DETECTED [facility] Comment on above: Performed By: #### G IPANEL ####[facility] Jptemykxin[address]37[address] [place], [place] [address]Dr. Tadeo Smyth C. Diff toxin A/B Not detected Normal NOT DETECTED [facility] Comment on above: Performed By: #### G IPANEL ####[facility] Pkbdirsvba2722[address] [place], [place] [address]Dr. Tadeo Smyth Campylobacter Not detected Normal NOT DETECTED [facility] Comment on above: Performed By: #### G IPANEL ####[facility] Eqzrfmsxnc[address] [place], [place] [address]Dr. Tadeo Smyth Cryptosporidium Not detected Normal NOT DETECTED [facility] Comment on above: Performed By: #### G IPANEL ####[facility] Hlhipyqznv033[address] [place], [place] [address]Dr. Tadeo Smyth Cyclos. Cayetanensis Not detected Normal NOT DETECTED [facility] Comment on above: Performed By: #### G IPANEL ####[facility] Nslvmcrlgh13[address] [place], [place] [address]Dr. Tadeo Smyth E. Coli O157 Not Applicable Normal Not Applicable [facility] Comment on above: Performed By: #### G IPANEL ####[facility] Cdcpljjfzk[address] [place], [place] [address]Dr. Tadeo Smyth E. histolytica Not detected Normal NOT DETECTED [facility] Comment on above: Performed By: #### G IPANEL ####[facility] Aejwatsaaz2935[address] [place], [place] [address]Dr. Tadeo Smyth EAEC Not detected Normal NOT DETECTED [facility] Comment on above: Performed By: #### G IPANEL ####[facility] Fqcdlaayez[address] [place], [place] [address]Dr. Tadeo Smyth EIEC Not detected Normal NOT DETECTED [facility] Comment on above: Performed By: #### G IPANEL ####[facility] Ftcxplnipo28[address] [place] [address]Dr. Tadeo Smyth EPEC Not detected Normal NOT DETECTED [facility] Comment on above: Performed By: #### G IPANEL ####[facility] Hylnnnqsue[address] [place] [address]Dr. Tadeo Smyth ETEC Not detected Normal NOT DETECTED [facility] Comment on above: Performed By: #### G IPANEL ####[facility] Csniagliwr70[address] [place] [address]Dr. Margotnicole Smyth G. Lamblia Not detected Normal NOT DETECTED [facility] Comment on above: Performed By: #### G IPANEL ####[facility] Gfmkfoyinn3[address] [place], [place] [address]Dr. Tadeo Smyth GIPANEL CONTROLS PASSED Normal [facility] Comment on above: Performed By: #### G IPANEL ####[facility] Yqzmpnuyvp[address] [place], [place] [address]Dr. Tadeo [facility] PANEL BACTERIA Normal [facility] Comment on above: Performed By: #### G IPANEL ####[facility] Twqjkqtspr24[address] [place], [place] [address]Dr. Tadeo Smyth GIPNLHD ECOLI GI PANEL DIARRHEAGEN IC E.COLI / SHIGELLA Normal [facility] Comment on above: Performed By: #### G IPANEL ####[facility] Adwrkxzcgk6[address] [place], [place] [address]Dr. Tadeo Smyth GIPNLHD INFO SEE BELOW Normal [facility] Comment on above: Result Comment: EAEC - Enteroaggregative E. Coli EPEC- Enteropathogenic E. Coli ETEC- Enterotoxigenic E. Coli lt/st STEC- Shigella-like toxin-producing E. Coli stx1/stx2 EIEC- Shigella/Enteroinvasive E. Coli Performed By: #### G IPANEL ####[facility] Ppiaksfhmx05[address] [place], [place] [address]Dr. Yinicole Smyth GIPNLHD PARASITES GI PANEL PARASITES Normal [facility] Comment on above: Performed By: #### G IPANEL ####[facility] Xnsehpykrf4[address] [place] [address]Dr. Tadeo Smyth GIPNLHD VIRUS GI PANEL VIRUSES Normal [facility] Comment on above: Performed By: #### G IPANEL ####[facility] Rscbdlqxss38[address] [place] [address]Dr. Tadeo Smyth Norovirus GI/GII Not detected Normal NOT DETECTED [facility] Comment on above: Performed By: #### G IPANEL ####[facility] Zzjczesxei1886[address] [place], [place] [address]Dr. Tadeo Smyth P. Shigelloides Not detected Normal NOT DETECTED [facility] Comment on above: Performed By: #### G IPANEL ####[facility] Qgsuoakery4[address] [place], [place] [address]Dr. Tadeo Smyth Rotavirus A Not detected Normal NOT DETECTED [facility] Comment on above: Performed By: #### G IPANEL ####[facility] Aepzjflytg[address] [place], [place] [address]Dr. Tadeo Smyth Salmonella Not detected Normal NOT DETECTED [facility] Comment on above: Performed By: #### G IPANEL ####[facility] Obtbnopocb[address]69[address] [place], [place] [address]Dr. Tadeo Smyth Sapovirus Not detected Normal NOT DETECTED [facility] Comment on above: Performed By: #### G IPANEL ####[facility] Rvztisyxwm8439[address] [place], [place] [address]Dr. Tadeo Smyth STEC Not detected Normal NOT DETECTED [facility] Comment on above: Performed By: #### G IPANEL ####[facility] Xwenppeuad[address] [place], [place] [address]Dr. Tadeo Smyth Vibrio Not detected Normal NOT DETECTED [facility] Comment on above: Performed By: #### G IPANEL ####[facility] Ouaajqkzfn2724[address] [place], [place] [address]Dr. Tadeo Smyth Vibrio Cholera Not detected Normal NOT DETECTED [facility] Comment on above: Performed By: #### G IPANEL ####[facility] Hqtgriedix9267[address] [place], [place] [address]Dr. Tadeo Smyth Y. Enterocolitica Not detected Normal NOT DETECTED [facility] Comment on above: Performed By: #### G IPANEL ####[facility] Gmagvodejo6[address] [place], [place] [address]Dr. Tadeo Smyth AMYLASEon 06-06-2022 Amylase [Catalytic activity/Vol] 61 U/L Normal 25-115 [facility] Comment on above: Performed By: #### A MY, LIPA ####[facility] Tfrarmqxnw6[address] [place], [place] [address]Dr. Tadeo Smyth CBC AUTO DIFFon 06-06-2022 BASO # 0.0 103/ul Normal 0.0-0.1 [facility] Comment on above: Performed By: #### C BC ####[facility] Xeiwkootsg3328[address] [place], [place] [address]Dr. Tadeo Msyth Basophils/100 WBC (Bld) 0.5 % Normal 0.2-2.0 [facility] Comment on above: Performed By: #### C BC ####[facility] Hqmlkbhhwz7[address] [place], [place] [address]Dr. Tadeo Smyth EO # 0.2 103/ul Normal 0.0-0.7 [facility] Comment on above: Performed By: #### C BC ####[facility] Uirojdhdtc338[address] [place], [place] [address]Dr. Tadeo Smyth Eosinophils/100 WBC (Bld) 3.4 % Normal 0.9-7.0 [facility] Comment on above: Performed By: #### C BC ####[facility] Mwwcydrexz4488[address] [place], [place] [address]Dr. Tadeo Smyth Erythrocyte distribution width (RBC) [Ratio] 13.2 % Normal 11.0-15.0 [facility] Comment on above: Performed By: #### C BC ####[facility] Mciswetvpi3639[address] [place], [place] [address]Dr. Tadeo Smyth Hematocrit (Bld) [Volume fraction] 38.3 % Normal 36.0-48.0 [facility] Comment on above: Performed By: #### C BC ####[facility] [address]ydlzcdia24[address] [place] [address]Dr. Tadeo Smyth Hemoglobin (Bld) [Mass/Vol] 12.0 g/dL Normal 12.0-16.0 [facility] Comment on above: Performed By: #### C BC ####[facility] Sdwfkyyijq7[address] [place] [address]Dr. Tadeo Smyth IG # 0.01 10e3/ul Normal 0.00-0.03 [facility] Comment on above: Performed By: #### C BC ####[facility] Tnwsvpzncr9459[address] [place], [place] [address]Dr. Tadeo Smyth IG % 0.2 % Normal 0.0-0.5 [facility] Comment on above: Performed By: #### C BC ####[facility] Njymetsbao0380[address] [place], [place] [address]Dr. Tadeo Smyth LYMPH # 1.7 103/ul Normal 1.2-3.8 [facility] Comment on above: Performed By: #### C BC ####[facility] Snfvatswon7349[address] [place], [place] [address]Dr. Tadeo Smyth Lymphocytes/100 WBC (Bld) 28.1 % Normal 20.5-60.0 [facility] Comment on above: Performed By: #### C BC ####[facility] Eyamjgtxaq8266[address] [place], [place] [address]Dr. Tadeo Smyth MANUAL DIFF REQ NO Normal [facility] Comment on above: Performed By: #### C BC ####[facility] Yqoasyhdcp219[address] [place], [place] [address]Dr. Tadeo Smyth MCH (RBC) [Entitic mass] 28.5 pg Normal 26.7-34.0 [facility] Comment on above: Performed By: #### C BC ####[facility] Nujzxoctnx67[address] [place], [place] [address]Dr. Tadeo Smyth MCHC (RBC) [Mass/Vol] 31.3 g/dL Normal 29.9-35.2 [facility] Comment on above: Performed By: #### C BC ####[facility] Zxyapkkzua66[address] [place] [address]Dr. Tadeo Smyth MCV (RBC) [Entitic vol] 91.0 fL Normal 81.0-99.0 [facility] Comment on above: Performed By: #### C BC ####[facility] Dbbcssqqmc74[address] [place] [address]Dr. Tadeo Smyth MONO # 0.4 103/ul Normal 0.3-0.8 [facility] Comment on above: Performed By: #### C BC ####[facility] Yrzhinqsda0363 [place] [address]Dr. Tadeo Smyth Monocytes/100 WBC (Bld) 7.1 % Normal 1.7-12.0 [facility] Comment on above: Performed By: #### C BC ####[facility] Mdddxsawuv1815[address] [place], [place] [address]Dr. Tadeo Smyth NEUT # 3.6 103/ul Normal 1.4-6.5 [facility] Comment on above: Performed By: #### C BC ####[facility] Oytasuxkez[address] [place], [place] [address]Dr. Tadeo Smyth Neutrophils/100 WBC (Bld) 60.7 % Normal 43.0-75.0 [facility] Comment on above: Performed By: #### C BC ####[facility] Jmrmzyprbk6337[address] [place], [place] [address]Dr. Tadeo Smyth Platelet mean volume (Bld) [Entitic vol] 8.9 fL Critically low 9.5-13.5 [facility] Comment on above: Performed By: #### C BC ####[facility] Zctbqdnmys9664 [place] [id number]. Tadeo Smyth PLT 374 103/ul Normal 150-450 [facility] Comment on above: Performed By: #### C BC ####[facility] Mhxsuwhmif[address] [place], [place] [address]Dr. Tadeo Smyth RBC 4.21 106/ul Normal 4.20-5.40 [facility] Comment on above: Performed By: #### C BC ####[facility] Zfeypfaref39[address] [place] [address]Dr. Tadeo Smyth WBC 5.9 103/ul Normal 4.0-11.0 [facility] Comment on above: Performed By: #### C BC ####[facility] Uuikzmjvdz85[address] [place], [place] [address]Dr. Tadeo Smyth CT ABD/PELV W CONon 06-06-[address] ABD/PELV W CON Normal [facility] ER URINE PROFILEon 2 Bilirubin Ql (U) Negative Normal NEGATIVE [facility] Comment on above: Performed By: #### Matthew FRANCISCO UMICRO ####[facility] Siefedmbev[address] [place], [place] [address]Dr. Tadeo Smyth Clarity (U) CLOUDY Abnormal CLEAR [facility] Comment on above: Performed By: #### Matthew FRANCISCO UMICRO ####[facility] Axdntpsolj6932[address] [place], [place] [address]Dr. Tadeo Smyth Color (U) LT. YELLOW Normal YELLOW [facility] Comment on above: Performed By: #### RANDI MERCHANTICRO ####[facility] Ybbtvnbqhy99[address] [place], [place] [address]Dr. Tadeo CAMARGOD A micrscopic examina tion will be performed if indicated. Normal [facility] Comment on above: Performed By: #### Matthew FRANCISCO UMICRO ####[facility] Ojlqiowtnf8[address] [place], [place] [address]Dr. Tadeo Smyth Glucose Ql (U) Negative Normal NEGATIVE [facility] Comment on above: Performed By: #### Matthew FRANCISCO UMICRO ####[facility] Qmdmkuhihj657[address] [place], [place] [address]Dr. Tadeo Smyth Hemoglobin Ql (U) TRACE-INTACT Abnormal NEGATIVE [facility] Comment on above: Performed By: #### Matthew FRANCISCO UMICRO ####[facility] Grjlvpdwmo[address] [place], [place] [address]Dr. Tadeo Smyth Ketones Ql (U) Negative Normal NEGATIVE [facility] Comment on above: Performed By: #### SANDRO MERCHANTRO ####[facility] Rgsfeacqpu034[address] [place] [address]Dr. Tadeo Smyth LEUKOCYTES SMALL Abnormal NEGATIVE [facility] Comment on above: Performed By: #### KAROL MERCHANT ####[facility] Gbcuzysful[address] [place] [address]Dr. Tadeo Smyth Nitrite Ql (U) Negative Normal NEGATIVE [facility] Comment on above: Performed By: #### KAROL MERCHANT ####[facility] Gwuheumeuj[address] [place] [address]Dr. Tadeo Smyth pH (U) 6.0 [pH] Normal 5-9 [facility] Comment on above: Performed By: #### KAROL MERCHANT ####[facility] Ontzlcgebn[address] [place] [address]Dr. Tadeo Smyth SPEC GRAVITY 1.020 Normal 1.005-<=1.0 25 [facility] Comment on above: Performed By: #### KAROL MERCHANT ####[facility] Ijyizevded[address] [place] [address]Dr. Tadeo Smyth UA PROTEIN Negative Normal NEGATIVE/ TRACE [facility] Comment on above: Performed By: #### KAROL MERCHANT ####[facility] Mstnpnqbmf[address] [place], [place] [address]Dr. Tadeo Smyth UR MICRO IND INDICATED Normal [facility] Comment on above: Performed By: #### KAROL MERCHANT ####[facility] Ltbqfthzwe[address] [place], [place] [address]Dr. Tadeo Smyth Urobilinogen Qn (U) 0.2 {Benito'U}/dL Normal 0.2 - 1. 0 [facility] Comment on above: Performed By: #### KAROL MERCHANT ####[facility] Kdkgfklnhf0[address] [place], [place] [address]Dr. Tadeo Smyth LIPASEon 06-06-2022 Lipase [Catalytic activity/Vol] 100.0 U/L Normal 73.0-393.0 [facility] Comment on above: Performed By: #### A MY, LIPA ####[facility] Acznwqgbwx7[address] [place] [address]Dr. Tadoe Smyth PROF 14(COMP METB)on 022 Albumin [Mass/Vol] 3.3 g/dL Critically low 3.4-5.0 [facility] Comment on above: Performed By: #### C MP ####[facility] Remqkkfqvq34[address] [place] [address]Dr. Tadeo Smyth Albumin/Globulin [Mass ratio] 0.9 {ratio} Normal [facility] [place] [facility] Comment on above: Performed By: #### C MP ####[facility] Howdpgepze40[address] [place], [place] [address]Dr. Tadeo Smyth ALP [Catalytic activity/Vol] 140 U/L Critically high 46-116 [facility] [place] [facility] Comment on above: Performed By: #### C MP ####[facility] Ukgnggjryk0[address] [place], [place] [address]Dr. Tadeo Smyth ALT [Catalytic activity/Vol] 23 U/L Normal 14-59 [facility] [place] [facility] Comment on above: Performed By: #### C MP ####[facility] Lriqtdgfte30[address] [place], [place] [address]Dr. Tadeo Smyth Anion gap [Moles/Vol] 11.6 mmol/L Normal [facility] Comment on above: Performed By: #### C MP ####[facility] Gcjlaqcmdx[address] [place], [place] [address]Dr. Tadeo Smyth AST [Catalytic activity/Vol] 18 U/L Normal 15-37 [facility] [place] [facility] Comment on above: Performed By: #### C MP ####[facility] Zpaxjpnfgo[address] [place], [place] [address]Dr. Tadeo Smyth Bilirubin [Mass/Vol] 0.2 mg/dL Normal 0.2-1.0 [facility] [place] [facility] Comment on above: Performed By: #### C MP ####[facility] Mhyjvzeiom[address] [place], [place] [address]Dr. Tadeo Smyth Calcium [Mass/Vol] 8.8 mg/dL Normal 8.5-10.1 [facility] Comment on above: Performed By: #### C MP ####[facility] [address] [place] [address]Dr. Tadeo Smyth Chloride [Moles/Vol] 109 mmol/L Critically high 98-107 [facility] Comment on above: Performed By: #### C MP ####[facility] Ahkaydjvfy[address] [place] [address]Dr. Tadeo Smyth CO2 [Moles/Vol] 26.3 mmol/L Normal 21.0-32.0 [facility] Comment on above: Performed By: #### C MP ####[facility] Uintokxclx[address] [place] [address]Dr. Tadeo Smyth Creatinine [Mass/Vol] 0.81 mg/dL Normal 0.55-1.02 [facility] Comment on above: Performed By: #### C MP ####[facility] Znkxzdmrde038[address] [place], [place] [address]Dr. Tadeo Smyth EGFR-AF KENYAN >60 Normal >=60 [facility] Comment on above: Performed By: #### C MP ####[facility] Manhctldcw554[address] [place], [place] [address]Dr. Tadeo Smyth EGFR-NON AF KENYAN >60 Normal >=60 [facility] Comment on above: Performed By: #### C MP ####[facility] Wwekpfslgq[address] [place], [place] [address]Dr. Tadeo Smyth Globulin (S) [Mass/Vol] 3.7 g/dL Normal [facility] Comment on above: Performed By: #### C MP ####[facility] Hwknbzvaky[address] [place], [place] [address]Dr. Tadeo Smyth Glucose [Mass/Vol] 90 mg/dL Normal 74-106 [facility] Comment on above: Performed By: #### C MP ####[facility] Yafwfdikbn179[address] [place], [place] [address]Dr. Tadeo Smyth Potassium [Moles/Vol] 3.9 mmol/L Normal 3.5-5.1 [facility] Comment on above: Performed By: #### C MP ####[facility] Jboopyuvsd[address] [place], [place] [address]Dr. Tadeo Smyth Protein [Mass/Vol] 7.0 g/dL Normal 6.4-8.2 [facility] Comment on above: Performed By: #### C MP ####[facility] Laguomtmcn[address] [place] [address]Dr. Mragotnicole Smyth Sodium [Moles/Vol] 143 mmol/L Normal 136-145 [facility] Comment on above: Performed By: #### C MP ####[facility] Hmyuhpwgzg[address] [place] [address]Dr. Tadeo Smyth Urea nitrogen [Mass/Vol] 12.0 mg/dL Normal 7.0-18.0 [facility] Comment on above: Performed By: #### C MP ####[facility] Naqseipdai[address] [place], [place] [address]Dr. Tadeo Smyth Urea nitrogen/Creatinine [Mass ratio] 14.8 mg/mg Normal [facility] Comment on above: Performed By: #### C MP ####[facility] Gztaoimamd7566[address] [place], [place] [address]Dr. Tadeo Smyth URINE MICROSCOPIC ONLYon BACTERIA LARGE Abnormal NONE SEEN [facility] Comment on above: Performed By: #### KAROL MERCHANT ####[facility] Kmhnqbeido9327[address] [place], [place] [address]Dr. Tadeo Smyth Bacteria identified Cx Nom (U) INDICATED Normal [facility] Comment on above: Performed By: #### SANDRO MERCHANTRO ####[facility] Xzzwyewtzu029[address] [place], [place] [address]Dr. Tadeo Smyth CAST NONE SEEN Normal NONE SEEN [facility] Comment on above: Performed By: #### SANDRO MERCHANTRO ####[facility] Qrkwcwmtcs8[address] [place], [place] [address]Dr. Tadeo Smyth Crystals LM Nom (Urine sed) NONE SEEN Normal NONE SEEN [facility] Comment on above: Performed By: #### SANDRO MERCHANTRO ####[facility] Adqvlhouqy954[address] [place], [place] [address]Dr. Tadeo Smyth Epithelial cells LM Ql (Urine sed) RARE Normal NONE SEEN /RARE [facility] Comment on above: Performed By: #### RANDI MERCHANTICRO ####[facility] Hqmxldijsb[address] [place] [address]Dr. Tadeo Smyth MUCOUS TRACE Abnormal NONE SEEN [facility] Comment on above: Performed By: #### Matthew FRANCISCO UMICRO ####[facility] Kfvggdxnjz1164[address] [place], [place] [address]Dr. Margotnicole Haja RBC 0-2 Normal 0-2 [facility] Comment on above: Performed By: #### Matthew FRANCISCO UMICRO ####[facility] Lnnyghrizu1509[address] [place], [place] [address]Dr. Tadeo Haja WBC 2-5 Abnormal NONE SEEN [facility] Comment on above: Performed By: #### SANDRO MERCHANTRO ####[facility] Sgnfmgtkjw7624[address] [place], [place] [address]Dr. Tadeo Haja AMYLASEon 06-04-2022 Amylase [Catalytic activity/Vol] 61 U/L Normal 25-115 [facility] Comment on above: Performed By: #### A MY, CMP, LIPA ####[facility] Mbqxsohuax232[address] [place], [place] [address]Dr. Tadeo Haja CBC AUTO DIFFon 06-04-2022 BASO # 0.0 103/ul Normal 0.0-0.1 [facility] Comment on above: Performed By: #### C BC ####[facility] Ohbhrwfuyu30[address] [place], [place] [address]Dr. Margotnicole Smyth Basophils/100 WBC (Bld) 0.5 % Normal 0.2-2.0 [facility] Comment on above: Performed By: #### C BC ####[facility] Cqcdgamtet907[address] [place], [place] [address]Dr. Tadeo Smyth EO # 0.3 103/ul Normal 0.0-0.7 [facility] Comment on above: Performed By: #### C BC ####[facility] Jpaoeclqdb5714[address] [place], [place] [address]Dr. Tadeo Smyth Eosinophils/100 WBC (Bld) 4.7 % Normal 0.9-7.0 [facility] Comment on above: Performed By: #### C BC ####[facility] Anljlgbzxs424[address] [place], [place] [address]Dr. Tadeo Smyth Erythrocyte distribution width (RBC) [Ratio] 13.2 % Normal 11.0-15.0 [facility] Comment on above: Performed By: #### C BC ####[facility] Nyavnoqlaz4589[address] [place], [place] [address]Dr. Tadeo Smyth Hematocrit (Bld) [Volume fraction] 36.9 % Normal 36.0-48.0 [facility] Comment on above: Performed By: #### C BC ####[facility] Qzmvzqhuyz5[address] [place], [place] [address]Dr. Tadeo Smyth Hemoglobin (Bld) [Mass/Vol] 11.9 g/dL Critically low 12.0-16.0 [facility] Comment on above: Performed By: #### C BC ####[facility] Ffmanyhsph0190[address] [place], [place] [address]Dr. Tadeo Smyth IG # 0.01 10e3/ul Normal 0.00-0.03 [facility] Comment on above: Performed By: #### C BC ####[facility] Gyhtguktuh3940[address] [place], [place] [address]Dr. Tadeo Smyth IG % 0.2 % Normal 0.0-0.5 [facility] Comment on above: Performed By: #### C BC ####[facility] Rfdytlrvnz3870[address] [place], [place] [address]Dr. Tadeo Smyth LYMPH # 2.3 103/ul Normal 1.2-3.8 [facility] Comment on above: Performed By: #### C BC ####[facility] Rxsrnetulv8789[address] [place], [place] [address]Dr. Tadeo Smyth Lymphocytes/100 WBC (Bld) 37.3 % Normal 20.5-60.0 [facility] Comment on above: Performed By: #### C BC ####[facility] Bpudwjpqvr7139[address] [place], [place] [address]Dr. Tadeo Smyth MANUAL DIFF REQ NO Normal [facility] Comment on above: Performed By: #### C BC ####[facility] Xrixlwkrgt[address] [place] [address]Dr. Tadeo Smyth MCH (RBC) [Entitic mass] 29.0 pg Normal 26.7-34.0 [facility] Comment on above: Performed By: #### C BC ####[facility] Ydfidpiyyw306[address] [place], [place] [address]Dr. Tadeo Smyth MCHC (RBC) [Mass/Vol] 32.2 g/dL Normal 29.9-35.2 [facility] Comment on above: Performed By: #### C BC ####[facility] Ttqvsmpibw459[address] [place], [place] [address]Dr. Tadeo Smyth MCV (RBC) [Entitic vol] 90.0 fL Normal 81.0-99.0 [facility] Comment on above: Performed By: #### C BC ####[facility] Kgvfgfckuw998[address] [place], [place] [address]Dr. Tadeo Smyth MONO # 0.4 103/ul Normal 0.3-0.8 [facility] Comment on above: Performed By: #### C BC ####[facility] Uxyjgnmagc3816[address] [place], [place] [address]Dr. Tadeo Smyth Monocytes/100 WBC (Bld) 6.8 % Normal 1.7-12.0 [facility] Comment on above: Performed By: #### C BC ####[facility] Vxkzgftesd567[address] [place], [place] [address]DrNeo Smyth NEUT # 3.2 103/ul Normal 1.4-6.5 [facility] Comment on above: Performed By: #### C BC ####[facility] Rbujvoxwvr1299[address] [place], [place] [address]DrNeo Smyth Neutrophils/100 WBC (Bld) 50.5 % Normal 43.0-75.0 [facility] Comment on above: Performed By: #### C BC ####[facility] Upsngapxkg7760[address] [place], [place] [address]Dr. Tadeo Smyth Platelet mean volume (Bld) [Entitic vol] 8.9 fL Critically low 9.5-13.5 [facility] Comment on above: Performed By: #### C BC ####[facility] Y[address]udgsm[address] [place] [address]Dr. Tadeo Smyth PLT 387 103/ul Normal 150-450 [facility] Comment on above: Performed By: #### C BC ####[facility] Sexegnwunt[address] [place] [address]Dr. Margotnicole Haja RBC 4.10 106/ul Critically low 4.20-5.40 [facility] Comment on above: Performed By: #### C BC ####[facility] Mxsgzfzikk[address] [place] [address]Dr. Tadeo Smyth WBC 6.2 103/ul Normal 4.0-11.0 [facility] Comment on above: Performed By: #### C BC ####[facility] Qtkwavtmge8345[address] [place], [place] [address]Dr. Tadeo Smyth CT ABD/PELV W CONon 06-04-[address] ABD/PELV W CON Normal [facility] ER URINE PROFILEon 2 Bilirubin Ql (U) Negative Normal NEGATIVE [facility] Comment on above: Performed By: #### KAROL MERCHANT ####[facility] Tiijnpfpue306[address] [place], [place] [address]Dr. Tadeo Smyth Clarity (U) CLEAR Normal CLEAR [facility] Comment on above: Performed By: #### KAROL MERCHANT ####[facility] Mfkdxyhsct[address] [place] [address]Dr. Tadeo Smyth Color (U) LT. YELLOW Normal YELLOW [facility] Comment on above: Performed By: #### KAROL MERCHANT ####[facility] Kielqazxyl35[address] [place], [place] [address]Dr. Tadeo Smyth ERUAHD A micrscopic examina tion will be performed if indicated. Normal [facility] Comment on above: Performed By: #### KAROL MERCHANT ####[facility] Zwxmdlszss[address] [place], [place] [address]Dr. Tadeo Smyth Glucose Ql (U) Negative Normal NEGATIVE [facility] Comment on above: Performed By: #### SANDRO MERCHANTRO ####[facility] Xxzshfszbm9904[address] [place], [place] [address]Dr. Tadeo Smyth Hemoglobin Ql (U) TRACE-INTACT Abnormal NEGATIVE [facility] Comment on above: Performed By: #### SANDRO MERCHANTRO ####[facility] Iluybapoxf4090[address] [place], [place] [address]Dr. Tadeo Smyth Ketones Ql (U) Negative Normal NEGATIVE [facility] Comment on above: Performed By: #### SANDRO MERCHANTRO ####[facility] Bnktvpkrhk9954[address] [place], [place] [address]Dr. Tadeo Smyth LEUKOCYTES Negative Normal NEGATIVE [facility] Comment on above: Performed By: #### SANDRO MERCHANTRO ####[facility] Qnoscqhrsb4780[address] [place], [place] [address]Dr. Tadeo Smyth Nitrite Ql (U) Negative Normal NEGATIVE [facility] Comment on above: Performed By: #### SANDRO MERCHANTRO ####[facility] Navqzuxmkg0667[address] [place], [place] [address]Dr. Tadeo Haja pH (U) 6.5 [pH] Normal 5-9 [facility] Comment on above: Performed By: #### SANDRO MERCHANTRO ####[facility] Uvflizggnp859[address] [place], [place] [address]Dr. Tadeo Smyth SPEC GRAVITY 1.015 Normal 1.005-<=1.0 25 [facility] Comment on above: Performed By: #### SANDRO MERCHANTRO ####[facility] Awvzmzkejy257[address] [place], [place] [address]Dr. Tadeo Smyth UA PROTEIN Negative Normal NEGATIVE/ TRACE [facility] Comment on above: Performed By: #### SANDRO MERCHANTRO ####[facility] Namegtyygo787[address] [place], [place] [address]Dr. Tadeo Smyth UR MICRO IND INDICATED Normal [facility] Comment on above: Performed By: #### KAROL MERCHANT ####[facility] O[address]roovq[address] [place] [address]Dr. Tadeo Smyth Urobilinogen Qn (U) 0.2 {Benito'U}/dL Normal 0.2 - 1. 0 [facility] Comment on above: Performed By: #### KAROL MERCHANT ####[facility] Zdgosfxgdf[address] [place] [address]Dr. Margotnicole Smyth LIPASEon 06-04-2022 Lipase [Catalytic activity/Vol] 81.0 U/L Normal 73.0-393.0 [facility] Comment on above: Performed By: #### A MY, CMP, LIPA ####[facility] Rhgkvczool8[address] [place], [place] [address]Dr. Margotnicole Smyth PROF 14(COMP METB)on 022 Albumin [Mass/Vol] 3.6 g/dL Normal 3.4-5.0 [facility] Comment on above: Performed By: #### A MY, CMP, LIPA ####[facility] Lmeuavxsns[address] [place] [address]Dr. Margotnicole Smyth Albumin/Globulin [Mass ratio] 1.0 {ratio} Normal [facility] Comment on above: Performed By: #### A MY, CMP, LIPA ####[facility] Kiwfdegvyd75[address] [place] [address]Dr. Margotnicole Smyth ALP [Catalytic activity/Vol] 150 U/L Critically high 46-116 [facility] Comment on above: Performed By: #### A MY, CMP, LIPA ####[facility] Bqpfjvmcgg[address] [place] [address]Dr. Tadeo Smyth ALT [Catalytic activity/Vol] 23 U/L Normal 14-59 [facility] Comment on above: Performed By: #### A MY, CMP, LIPA ####[facility] Epxqbgvdoo85[address] [place] [address]Dr. Tadeo Smyth Anion gap [Moles/Vol] 13.2 mmol/L Normal [facility] Comment on above: Performed By: #### A MY, CMP, LIPA ####[facility] Lhgbazltzd[address] [place] [address]Dr. Tadeo Smyth AST [Catalytic activity/Vol] 12 U/L Critically low 15-37 [facility] Comment on above: Performed By: #### A MY, CMP, LIPA ####[facility] Sihwxobuua[address] [place] [address]Dr. Tadeo Smyth Bilirubin [Mass/Vol] 0.1 mg/dL Critically low 0.2-1.0 [facility] Comment on above: Performed By: #### A MY, CMP, LIPA ####[facility] Kntczyqbxq[address] [place], [place] [address]Dr. Tadeo Smyth Calcium [Mass/Vol] 9.0 mg/dL Normal 8.5-10.1 [facility] Comment on above: Performed By: #### A MY, CMP, LIPA ####[facility] Gwglzqgqnr34[address] [place], [place] [address]Dr. Tadeo Smyth Chloride [Moles/Vol] 104 mmol/L Normal 98-107 [facility] Comment on above: Performed By: #### A MY, CMP, LIPA ####[facility] Fyzcjxacta9[address] [place], [place] [address]Dr. Tadeo Smyth CO2 [Moles/Vol] 26.6 mmol/L Normal 21.0-32.0 [facility] Comment on above: Performed By: #### A MY, CMP, LIPA ####[facility] Rkwcgiffqb17[address] [place], [place] [address]Dr. Tadeo Smyth Creatinine [Mass/Vol] 0.97 mg/dL Normal 0.55-1.02 [facility] Comment on above: Performed By: #### A MY, CMP, LIPA ####[facility] Hqzpnsyrti[address] [place], [place] [address]Dr. Tadeo Smyth EGFR-AF KENYAN >60 Normal >=60 [facility] Comment on above: Performed By: #### A MY, CMP, LIPA ####[facility] Mtuufjrwyz[address] [place], [place] [address]Dr. Tadeo Smyth EGFR-NON AF KENYAN 60 mL/min/1.73m2 Normal >=60 [facility] Comment on above: Performed By: #### A MY, CMP, LIPA ####[facility] Hsltzdonnx4[address] [place] [address]Dr. Tadeo Smyth Globulin (S) [Mass/Vol] 3.7 g/dL Normal [facility] Comment on above: Performed By: #### A MY, CMP, LIPA ####[facility] Twpmqerkmh[address] [place] [address]Dr. Tadeo Smyth Glucose [Mass/Vol] 109 mg/dL Critically high 74-106 [facility] Comment on above: Performed By: #### A MY, CMP, LIPA ####[facility] Xbtitdtsri[address] [place] [address]Dr. Tadeo Smyth Potassium [Moles/Vol] 3.8 mmol/L Normal 3.5-5.1 [facility] Comment on above: Performed By: #### A MY, CMP, LIPA ####[facility] Rampmwkiqp[address] [place] [address]Dr. Tadeo Smyth Protein [Mass/Vol] 7.3 g/dL Normal 6.4-8.2 [facility] Comment on above: Performed By: #### A MY, CMP, LIPA ####[facility] Eclwakoegy[address] [place] [address]Dr. Tadeo Smyth Sodium [Moles/Vol] 140 mmol/L Normal 136-145 [facility] Comment on above: Performed By: #### A MY, CMP, LIPA ####[facility] Jpxcjtyicn[address] [place] [address]Dr. Tadeo Smyth Urea nitrogen [Mass/Vol] 21.0 mg/dL Critically high 7.0-18.0 [facility] Comment on above: Performed By: #### A MY, CMP, LIPA ####[facility] Dghgprssmh[address] [place] [address]Dr. Tadeo Smyth Urea nitrogen/Creatinine [Mass ratio] 21.6 mg/mg Normal [facility] Comment on above: Performed By: #### A MY, CMP, LIPA ####[facility] Irstiorzxf[address] [place] [address]Dr. Tadeo Smyth URINE MICROSCOPIC ONLYon BACTERIA NONE SEEN Normal NONE SEEN [facility] Comment on above: Performed By: #### Matthew FRANCISCO UMICRO ####[facility] Kpdbycmbda39[address] [place] [address]Dr. Tadeo Smyth Bacteria identified Cx Nom (U) NOT INDICATED Normal [facility] Comment on above: Performed By: #### Matthew FRANCISCO UMICRO ####[facility] Smlkysurfv[address] [place] [address]Dr. Tadeo Smyth CAST NONE SEEN Normal NONE SEEN [facility] Comment on above: Performed By: #### RANDI MERCHANTICRO ####[facility] Cgzdoerjxj218[address] [place], [place] [address]Dr. Tadeo Smyth Crystals LM Nom (Urine sed) NONE SEEN Normal NONE SEEN [facility] Comment on above: Performed By: #### RANDI MERCHANTICRO ####[facility] Oguednodvq3520[address] [place], [place] [address]Dr. Tadeo Smyth Epithelial cells LM Ql (Urine sed) FEW Abnormal NONE SEEN /RARE [facility] Comment on above: Performed By: #### Matthew FRANCISCO UMICRO ####[facility] Hytfxtbojf[address] [place], [place] [address]Dr. Tadeo Smyth MUCOUS NONE SEEN Normal NONE SEEN [facility] Comment on above: Performed By: #### SANDRO MERCHANTRO ####[facility] Odjrfqnhvv[address] [place], [place] [address]Dr. Tadeo Smyth RBC 0-2 Normal 0-2 [facility] Comment on above: Performed By: #### Matthew FRANCISCO UMICRO ####[facility] Tlwjdpimxo4[address] [place], [place] [address]Dr. Tadeo Smyth WBC NONE SEEN Normal NONE SEEN [facility] Comment on above: Performed By: #### Matthew FRANCISCO UMICRO ####[facility] Dsdmtkjwwo724[address] [place], [place] [address]Dr. Tadeo Smyth MICRO OTHER TESTSOrdered By: Guillermo Rocha on 04-29-2022 Fecal WBC Lactoferrin Negative (04/29/22 8:00 AM) Normal Negative [facility] Man Sero CULTURE URINEon 03-31-2022 CULTURE URINE Normal [facility] Comment on above: Performed By: #### U RCX ####[facility] Jnfjtukaye[address] [place] [address]Dr. Tadeo Haja CBC AUTO DIFFon 03-30-2022 BASO # 0.0 103/ul Normal 0.0-0.1 [facility] Comment on above: Performed By: #### C BC ####[facility] Oxnnowcwvz8[address] [place], [place] [address]Dr. Tadeo Smyth Basophils/100 WBC (Bld) 0.4 % Normal 0.2-2.0 [facility] Comment on above: Performed By: #### C BC ####[facility] Qfyfzxfmkf7839[address] [place], [place] [address]Dr. Tadeo Smyth EO # 0.3 103/ul Normal 0.0-0.7 [facility] Comment on above: Performed By: #### C BC ####[facility] Rqdvnidecx7[address] [place], [place] [address]Dr. Margotnicole Smyth Eosinophils/100 WBC (Bld) 5.1 % Normal 0.9-7.0 [facility] Comment on above: Performed By: #### C BC ####[facility] Ecwheyunrk2626[address] [place], [place] [address]Dr. Tadeo Haja Erythrocyte distribution width (RBC) [Ratio] 12.8 % Normal 11.0-15.0 [facility] Comment on above: Performed By: #### C BC ####[facility] Jzeczvoump[address] [place], [place] [address]Dr. Margotnicole Smyth Hematocrit (Bld) [Volume fraction] 36.4 % Normal 36.0-48.0 [facility] Comment on above: Performed By: #### C BC ####[facility] Iapgbzspwg1985[address] [place], [place] [address]Dr. Tadeo Haja Hemoglobin (Bld) [Mass/Vol] 12.0 g/dL Normal 12.0-16.0 [facility] Comment on above: Performed By: #### C BC ####[facility] Nticmkpicr[address] [place] [address]DrNeo Smyth IG # 0.02 10e3/ul Normal 0.00-0.03 [facility] Comment on above: Performed By: #### C BC ####[facility] Bpocebvliw27[address] [place] [address]DrNeo Smyth IG % 0.4 % Normal 0.0-0.5 [facility] Comment on above: Performed By: #### C BC ####[facility] Tprkrztqsn[address] [place], [place] [address]DrNeo Smyth LYMPH # 1.4 103/ul Normal 1.2-3.8 [facility] Comment on above: Performed By: #### C BC ####[facility] Srzhdjvwjv[address] [place], [place] [address]DrNeo Smyth Lymphocytes/100 WBC (Bld) 25.5 % Normal 20.5-60.0 [facility] Comment on above: Performed By: #### C BC ####[facility] Iolxzylgdm[address] [place], [place] [address]DrNeo Smyth MANUAL DIFF REQ NO Normal [facility] Comment on above: Performed By: #### C BC ####[facility] Eykgrezfvd039[address] [place], [place] [address]DrNeo Smyth MCH (RBC) [Entitic mass] 29.1 pg Normal 26.7-34.0 [facility] Comment on above: Performed By: #### C BC ####[facility] Oulegzpolx[address] [place], [place] [address]DrNeo Smyth MCHC (RBC) [Mass/Vol] 33.0 g/dL Normal 29.9-35.2 [facility] Comment on above: Performed By: #### C BC ####[facility] Lypysktpjo[address] [place] [address]DrNeo Smyth MCV (RBC) [Entitic vol] 88.3 fL Normal 81.0-99.0 [facility] Comment on above: Performed By: #### C BC ####[facility] Lhnnjolxim6[address] [place] [id number]. Tadeo Smyth MONO # 0.4 103/ul Normal 0.3-0.8 [facility] Comment on above: Performed By: #### C BC ####[facility] Veltskmdvy2596 [place] [address]Dr. Tadeo Smyth Monocytes/100 WBC (Bld) 7.1 % Normal 1.7-12.0 [facility] Comment on above: Performed By: #### C BC ####[facility] Lgewshtdvk67[address] [place] [address]Dr. Tadeo Smyth NEUT # 3.4 103/ul Normal 1.4-6.5 [facility] Comment on above: Performed By: #### C BC ####[facility] Prrpmiuitm[address] [place], [place] [address]Dr. Tadeo Smyth Neutrophils/100 WBC (Bld) 61.5 % Normal 43.0-75.0 [facility] Comment on above: Performed By: #### C BC ####[facility] Iznpmarmaz64[address] [place] [address]Dr. Tadeo Smyth Platelet mean volume (Bld) [Entitic vol] 8.8 fL Critically low 9.5-13.5 [facility] Comment on above: Performed By: #### C BC ####[facility] Vpkmtnnpzj45[address] [place] [address]Dr. Tadeo Smyth PLT 324 103/ul Normal 150-450 [facility] Comment on above: Performed By: #### C BC ####[facility] Cjtwqgekgl0586 [place] [address]Dr. Tadeo Smyth RBC 4.12 106/ul Critically low 4.20-5.40 [facility] Comment on above: Performed By: #### C BC ####[facility] Ngegspergm5353 [place] [address]Dr. Tadeo Smyth WBC 5.5 103/ul Normal 4.0-11.0 [facility] Comment on above: Performed By: #### C BC ####[facility] Moeygqchha25[address] [place] [address]Dr. Tadeo Smyth PROF 14(COMP METB)on 022 Albumin [Mass/Vol] 3.1 g/dL Critically low 3.4-5.0 [facility] Comment on above: Performed By: #### C MP ####[facility] Kpmdbjxams035[address] [place] [address]Dr. Tadeo Smyth Albumin/Globulin [Mass ratio] 0.9 {ratio} Normal [facility] Comment on above: Performed By: #### C MP ####[facility] Hjrvodrhfh[address] [place], [place] [address]Dr. Tadeo Smyth ALP [Catalytic activity/Vol] 119 U/L Critically high 46-116 [facility] Comment on above: Performed By: #### C MP ####[facility] Robsqhfrjg9[address] [place], [place] [address]Dr. Tadeo Smyth ALT [Catalytic activity/Vol] 17 U/L Normal 14-59 [facility] Comment on above: Performed By: #### C MP ####[facility] Pgsofhwvpn3[address] [place], [place] [address]Dr. Tadeo Smyth Anion gap [Moles/Vol] 12.0 mmol/L Normal [facility] Comment on above: Performed By: #### C MP ####[facility] Dbhotadlng6501[address] [place], [place] [address]Dr. Tadeo Smyth AST [Catalytic activity/Vol] 16 U/L Normal 15-37 [facility] Comment on above: Performed By: #### C MP ####[facility] Gspzttjrly01[address] [place], [place] [address]Dr. Tadeo Smyth Bilirubin [Mass/Vol] 0.4 mg/dL Normal 0.2-1.0 [facility] Comment on above: Performed By: #### C MP ####[facility] Vudnqlppdz67[address] [place], [place] [address]Dr. Tadeo Smyth Calcium [Mass/Vol] 8.9 mg/dL Normal 8.5-10.1 [facility] Comment on above: Performed By: #### C MP ####[facility] Jitrscozxc80[address] [place] [address]Dr. Tadeo Smyth Chloride [Moles/Vol] 107 mmol/L Normal 98-107 [facility] Comment on above: Performed By: #### C MP ####[facility] Bnuiafcifo03[address] [place] [address]Dr. Tadeo Smyth CO2 [Moles/Vol] 26.9 mmol/L Normal 21.0-32.0 [facility] Comment on above: Performed By: #### C MP ####[facility] Scgjklxhbj6855 [place] [address]Dr. Tadeo Smyth Creatinine [Mass/Vol] 0.82 mg/dL Normal 0.55-1.02 [facility] Comment on above: Performed By: #### C MP ####[facility] Rlklxexakc6846 [place] [address]Dr. Tadeo Smyth EGFR-AF KENYAN >60 Normal >=60 [facility] Comment on above: Performed By: #### C MP ####[facility] Vfdgatswos8580 [place] [address]Dr. Tadeo Smyth EGFR-NON AF KENYAN >60 Normal >=60 [facility] Comment on above: Performed By: #### C MP ####[facility] Laultjjcqk9130 [place] [address]Dr. Tadeo Smyth Globulin (S) [Mass/Vol] 3.5 g/dL Normal [facility] Comment on above: Performed By: #### C MP ####[facility] Ggbrqxnmny6024 [place] [address]Dr. Tadeo Smyth Glucose [Mass/Vol] 104 mg/dL Normal 74-106 [facility] Comment on above: Performed By: #### C MP ####[facility] Caoavrryjx085[address] [place], [place] [address]Dr. Tadeo Smyth Potassium [Moles/Vol] 3.9 mmol/L Normal 3.5-5.1 [facility] Comment on above: Performed By: #### C MP ####[facility] Kwteoidrfe7242 [place] [address]Dr. Tadeo Smyth Protein [Mass/Vol] 6.6 g/dL Normal 6.4-8.2 [facility] Comment on above: Performed By: #### C MP ####[facility] Mmvldpahuq2996 [place] [address]Dr. Tadeo Smyth Sodium [Moles/Vol] 142 mmol/L Normal 136-145 [facility] Comment on above: Performed By: #### C MP ####[facility] Hsuzgnxbny8539 [place] [address]Dr. Tadeo Smyth Urea nitrogen [Mass/Vol] 5.0 mg/dL Critically low 7.0-18.0 [facility] Comment on above: Performed By: #### C MP ####[facility] Onsaxplcrc75[address] [place], [place] [address]Dr. Tadeo Smyth Urea nitrogen/Creatinine [Mass ratio] 6.1 mg/mg Normal [facility] Comment on above: Performed By: #### C MP ####[facility] Rfglxqdtnu659[address] [place], [place] [address]Dr. Tadeo Smyth CBC AUTO DIFFon 03-29-2022 BASO # 0.0 103/ul Normal 0.0-0.1 [facility] Comment on above: Performed By: #### C BC ####[facility] Ojnixwvlcr5[address] [place] [address]Dr. Tadeo Smyth Basophils/100 WBC (Bld) 0.4 % Normal 0.2-2.0 [facility] Comment on above: Performed By: #### C BC ####[facility] Uvyykrlvbe6925[address] [place], [place] [address]Dr. Tadeo Smyth EO # 0.2 103/ul Normal 0.0-0.7 [facility] Comment on above: Performed By: #### C BC ####[facility] Qlnctaddpz9232[address] [place], [place] [address]Dr. Tadeo Smyth Eosinophils/100 WBC (Bld) 4.3 % Normal 0.9-7.0 [facility] Comment on above: Performed By: #### C BC ####[facility] Hwwlgzxuwq9276 [place] [address]Dr. Tadeo Smyth Erythrocyte distribution width (RBC) [Ratio] 12.9 % Normal 11.0-15.0 [facility] Comment on above: Performed By: #### C BC ####[facility] Iplbgvxdsh0167 [place] [address]Dr. Tadeo Smyth Hematocrit (Bld) [Volume fraction] 33.8 % Critically low 36.0-48.0 [facility] Comment on above: Performed By: #### C BC ####[facility] Psfwsrorbx8104[address] [place], [place] [address]Dr. Tadeo Smyth Hemoglobin (Bld) [Mass/Vol] 11.1 g/dL Critically low 12.0-16.0 [facility] Comment on above: Performed By: #### C BC ####[facility] Uysrflafus9139[address] [place], [place] [address]Dr. Tadeo Smyth IG # 0.01 10e3/ul Normal 0.00-0.03 [facility] Comment on above: Performed By: #### C BC ####[facility] Eddyqubbqe955[address] [place], [place] [address]Dr. Tadeo Smyth IG % 0.2 % Normal 0.0-0.5 [facility] Comment on above: Performed By: #### C BC ####[facility] Rlqlawpukh038[address] [place], [place] [address]Dr. Tadeo Smyth LYMPH # 1.5 103/ul Normal 1.2-3.8 [facility] Comment on above: Performed By: #### C BC ####[facility] Jomaqidmfe4160[address] [place], [place] [address]Dr. Tadeo Smyth Lymphocytes/100 WBC (Bld) 29.9 % Normal 20.5-60.0 [facility] Comment on above: Performed By: #### C BC ####[facility] Tmudadrjmv209[address] [place], [place] [address]Dr. Tadeo Smyth MANUAL DIFF REQ NO Normal [facility] Comment on above: Performed By: #### C BC ####[facility] Uexrapaabq5532 [place] [address]Dr. Tadeo Smyth MCH (RBC) [Entitic mass] 29.3 pg Normal 26.7-34.0 [facility] Comment on above: Performed By: #### C BC ####[facility] Sjqpcuwpca2050 [place] [address]Dr. Tadeo Smyth MCHC (RBC) [Mass/Vol] 32.8 g/dL Normal 29.9-35.2 [facility] Comment on above: Performed By: #### C BC ####[facility] Exfzsthkem3518 [place] [address]Dr. Tadeo Smyth MCV (RBC) [Entitic vol] 89.2 fL Normal 81.0-99.0 [facility] Comment on above: Performed By: #### C BC ####[facility] Owtywhxgpg449[address] [place], [place] [address]Dr. Tadeo Smyth MONO # 0.4 103/ul Normal 0.3-0.8 [facility] Comment on above: Performed By: #### C BC ####[facility] Kqyxpzfxid2925 [place] [address]Dr. Margotnicole Smyth Monocytes/100 WBC (Bld) 7.8 % Normal 1.7-12.0 [facility] Comment on above: Performed By: #### C BC ####[facility] Qtxytvmgyk458[address] [place], [place] [address]Dr. Tadeo Smyth NEUT # 2.8 103/ul Normal 1.4-6.5 [facility] Comment on above: Performed By: #### C BC ####[facility] Fsdmstqrlg[address] [place], [place] [address]Dr. Margotnicole Smyth Neutrophils/100 WBC (Bld) 57.4 % Normal 43.0-75.0 [facility] Comment on above: Performed By: #### C BC ####[facility] Egsonpwgog9174[address] [place], [place] [address]Dr. Tadeo Haja Platelet mean volume (Bld) [Entitic vol] 8.9 fL Critically low 9.5-13.5 [facility] Comment on above: Performed By: #### C BC ####[facility] Unxsepboxm0301 [place] [address]Dr. Tadeo Smyth PLT 314 103/ul Normal 150-450 [facility] Comment on above: Performed By: #### C BC ####[facility] Emcbqxnjiq6273 [place] [address]Dr. Tadeo Smyth RBC 3.79 106/ul Critically low 4.20-5.40 [facility] Comment on above: Performed By: #### C BC ####[facility] Xsbronlnri4505 [place] [address]Dr. Tadeo Smyth WBC 4.9 103/ul Normal 4.0-11.0 [facility] Comment on above: Performed By: #### C BC ####[facility] Lhnxmdpiet0820 [place] [address]Dr. Margotnicole Smyth PROF 14(COMP METB)on 022 Albumin [Mass/Vol] 2.8 g/dL Critically low 3.4-5.0 [facility] Comment on above: Performed By: #### C MP ####[facility] Mxlsbvgadg0534 [place] [address]Dr. Tadeo Smyth Albumin/Globulin [Mass ratio] 0.8 {ratio} [facility] Comment on above: Performed By: #### C MP ####[facility] Wohthtarut7775 [place] [address]Dr. Tadeo Haja ALP [Catalytic activity/Vol] 117 U/L Critically high 46-116 [facility] Comment on above: Performed By: #### C MP ####[facility] Gqlgsyqded7335 [place] [address]Dr. Tadeo Haja ALT [Catalytic activity/Vol] 13 U/L Critically low 14-59 [facility] Comment on above: Performed By: #### C MP ####[facility] Bcppnzzwbz4619 [place] [address]Dr. Tadeo Haja Anion gap [Moles/Vol] 8.7 mmol/L Normal [facility] Comment on above: Performed By: #### C MP ####[facility] Mmovlygzoy4059 [place] [address]Dr. Tadeo Smyth AST [Catalytic activity/Vol] 12 U/L Critically low 15-37 [facility] Comment on above: Performed By: #### C MP ####[facility] Gahpcgbnst4380 [place] [address]Dr. Tadeo Smyth Bilirubin [Mass/Vol] 0.4 mg/dL Normal 0.2-1.0 [facility] Comment on above: Performed By: #### C MP ####[facility] Gxjznhzuji4[address] [place], [place] [address]Dr. Tadeo Smyth Calcium [Mass/Vol] 8.5 mg/dL Normal 8.5-10.1 [facility] Comment on above: Performed By: #### C MP ####[facility] Cbitrdlapi911[address] [place], [place] [address]Dr. Tadeo Smyth Chloride [Moles/Vol] 108 mmol/L Critically high 98-107 [facility] Comment on above: Performed By: #### C MP ####[facility] Jjeljlixym4925[address] [place], [place] [address]Dr. Tadeo Smyth CO2 [Moles/Vol] 28.0 mmol/L Normal 21.0-32.0 [facility] Comment on above: Performed By: #### C MP ####[facility] Dwrxdcixzl627[address] [place], [place] [address]Dr. Tadeo Smyth Creatinine [Mass/Vol] 0.74 mg/dL Normal 0.55-1.02 [facility] Comment on above: Performed By: #### C MP ####[facility] Stpfydpntw3721 [place] [address]Dr. Tadeo Smyth EGFR-AF KENYAN >60 Normal >=60 [facility] Comment on above: Performed By: #### C MP ####[facility] Tonvngebwt5366[address] [place], [place] [address]Dr. Tadeo Smyth EGFR-NON AF KENYAN >60 Normal >=60 [facility] Comment on above: Performed By: #### C MP ####[facility] Rkgxxfntpf477[address] [place], [place] [address]Dr. Tadeo Smyth Globulin (S) [Mass/Vol] 3.4 g/dL Normal [facility] Comment on above: Performed By: #### C MP ####[facility] Qchztaplgd2462 [place] [address]Dr. Tadeo Smyth Glucose [Mass/Vol] 107 mg/dL Critically high 74-106 [facility] Comment on above: Performed By: #### C MP ####[facility] Vtalteuonq3395 [place] [address]Dr. Tadeo Smyth Potassium [Moles/Vol] 3.7 mmol/L Normal 3.5-5.1 [facility] Comment on above: Performed By: #### C MP ####[facility] Prnuszjfju0477 [place] [address]Dr. Tadeo Smyth Protein [Mass/Vol] 6.2 g/dL Critically low 6.4-8.2 [facility] Comment on above: Performed By: #### C MP ####[facility] Akxifinmjq7058[address] [place], [place] [address]Dr. Tadeo Smyth Sodium [Moles/Vol] 141 mmol/L Normal 136-145 [facility] Comment on above: Performed By: #### C MP ####[facility] Dnmzxhinbf4796[address] [place], [place] [address]Dr. Tadeo Smyth Urea nitrogen [Mass/Vol] 7.0 mg/dL Normal 7.0-18.0 [facility] Comment on above: Performed By: #### C MP ####[facility] Krhdruksyw2784 [place] [address]Dr. Tadeo Smyth Urea nitrogen/Creatinine [Mass ratio] 9.5 mg/mg Normal [facility] Comment on above: Performed By: #### C MP ####[facility] Ztqxxdfzwe2738 [place] [address]Dr. Tadeo Haja XR KUB 1 VIEWon 03-29-2022 XR KUB 1 VIEW Normal [facility] CBC AUTO DIFFon 03-28-2022 BASO # 0.0 103/ul Normal 0.0-0.1 [facility] Comment on above: Performed By: #### C BC ####[facility] Inuraekxzc0544 [place] [address]Dr. Tadeo Smyth Basophils/100 WBC (Bld) 0.7 % Normal 0.2-2.0 [facility] Comment on above: Performed By: #### C BC ####[facility] Marnarbgbz69[address] [place], [place] [address]Dr. Tadeo Smyth EO # 0.2 103/ul Normal 0.0-0.7 [facility] Comment on above: Performed By: #### C BC ####[facility] Wfvvyycwwk44[address] [place], [place] [address]Dr. Tadeo Smyth Eosinophils/100 WBC (Bld) 3.3 % Normal 0.9-7.0 [facility] Comment on above: Performed By: #### C BC ####[facility] Bjcqnmnqse5645[address] [place], [place] [address]Dr. Tadeo Smyth Erythrocyte distribution width (RBC) [Ratio] 13.2 % Normal 11.0-15.0 [facility] Comment on above: Performed By: #### C BC ####[facility] Eepwrepzaq4257[address] [place], [place] [address]Dr. Tadeo Smyth Hematocrit (Bld) [Volume fraction] 34.2 % Critically low 36.0-48.0 [facility] Comment on above: Performed By: #### C BC ####[facility] Vzemogubcx[address] [place], [place] [address]Dr. Tadeo Smyth Hemoglobin (Bld) [Mass/Vol] 10.8 g/dL Critically low 12.0-16.0 [facility] Comment on above: Performed By: #### C BC ####[facility] Lmdbfclsti029[address] [place], [place] [address]Dr. Tadeo Smyth IG # 0.01 10e3/ul Normal 0.00-0.03 [facility] Comment on above: Performed By: #### C BC ####[facility] Igpihgjfaf2312[address] [place], [place] [address]Dr. Tadeo Smyth IG % 0.2 % Normal 0.0-0.5 [facility] Comment on above: Performed By: #### C BC ####[facility] Jaiqivaxzy3685 [place] [address]Dr. Tadeo Haja LYMPH # 1.3 103/ul Normal 1.2-3.8 [facility] Comment on above: Performed By: #### C BC ####[facility] Vhwihuibzs4504 [place] [address]Dr. Tadeo Smyth Lymphocytes/100 WBC (Bld) 28.4 % Normal 20.5-60.0 [facility] Comment on above: Performed By: #### C BC ####[facility] Qvtynizwfh[address] [place], [place] [address]Dr. Tadeo Smyth MANUAL DIFF REQ NO Normal [facility] Comment on above: Performed By: #### C BC ####[facility] Orxnjfkemp2504[address] [place], [place] [address]Dr. Tadeo Smyth MCH (RBC) [Entitic mass] 28.3 pg Normal 26.7-34.0 [facility] Comment on above: Performed By: #### C BC ####[facility] Muoqyxjkkc5534[address] [place], [place] [address]Dr. Margotnicole Smyth MCHC (RBC) [Mass/Vol] 31.6 g/dL Normal 29.9-35.2 [facility] Comment on above: Performed By: #### C BC ####[facility] Jpklwtsjsm3482 [place] [address]Dr. Tadeo Smyth MCV (RBC) [Entitic vol] 89.5 fL Normal 81.0-99.0 [facility] Comment on above: Performed By: #### C BC ####[facility] Ohdjwsxzir2503 [place] [address]Dr. Tadeo Smyth MONO # 0.3 103/ul Normal 0.3-0.8 [facility] Comment on above: Performed By: #### C BC ####[facility] Nsrfjauakh2961 [place] [address]Dr. Tadeo Smyth Monocytes/100 WBC (Bld) 5.5 % Normal 1.7-12.0 [facility] Comment on above: Performed By: #### C BC ####[facility] Uojubxgzij3001 [place] [address]Dr. Tadeo Smyth NEUT # 2.8 103/ul Normal 1.4-6.5 [facility] Comment on above: Performed By: #### C BC ####[facility] Kldutjjmdw9263 [place] [address]Dr. Tadeo Smyth Neutrophils/100 WBC (Bld) 61.9 % Normal 43.0-75.0 [facility] Comment on above: Performed By: #### C BC ####[facility] Fitcszwmtd0749 [place] [address]Dr. Tadeo Haja Platelet mean volume (Bld) [Entitic vol] 9.1 fL Critically low 9.5-13.5 [facility] Comment on above: Performed By: #### C BC ####[facility] Kkbjaftggs9[address] [place] [address]Dr. Tadeo Smyth PLT 327 103/ul Normal 150-450 [facility] Comment on above: Performed By: #### C BC ####[facility] Ploxmxturp5530 [place] [address]Dr. Tadeo Haja RBC 3.82 106/ul Critically low 4.20-5.40 [facility] Comment on above: Performed By: #### C BC ####[facility] Gperkzrqkp4059 [place] [address]Dr. Tadeo Smyth WBC 4.5 103/ul Normal 4.0-11.0 [facility] Comment on above: Performed By: #### C BC ####[facility] Anlxtqubnp1777 [place] [address]DrNeo Smyth POINT OF CARE GLUCOSEon 03-06 Glucose [Mass/Vol] 84 mg/dL Normal 74-106 [facility] Comment on above: Performed By: #### P OCGLUC ####[facility] Qvftglfdmo6007 [place] [address]DrNeo Smyth PROF 14(COMP METB)on 022 Albumin [Mass/Vol] 2.9 g/dL Critically low 3.4-5.0 [facility] Comment on above: Performed By: #### C MP ####[facility] Kxltdqclah0134 [place] [address]Dr. Tadeo Haja Albumin/Globulin [Mass ratio] 0.9 {ratio} Normal [facility] Comment on above: Performed By: #### C MP ####[facility] Lwvqqkgewa8712 [place] [address]Dr. Tadeo Haja ALP [Catalytic activity/Vol] 119 U/L Critically high 46-116 [facility] Comment on above: Performed By: #### C MP ####[facility] Enynhawoqz383[address] [place], [place] [address]Dr. Tadeo Haja ALT [Catalytic activity/Vol] 15 U/L Normal 14-59 [facility] Comment on above: Performed By: #### C MP ####[facility] Zdoghyllgh36[address] [place], [place] [address]Dr. Tadeo Smyth Anion gap [Moles/Vol] 7.9 mmol/L Normal [facility] Comment on above: Performed By: #### C MP ####[facility] Lsekdrsgke8869[address] [place], [place] [address]Dr. Tadeo Haja AST [Catalytic activity/Vol] 11 U/L Critically low 15-37 [facility] Comment on above: Performed By: #### C MP ####[facility] Zmfierkokf2895[address] [place], [place] [address]Dr. Tadeo Smyth Bilirubin [Mass/Vol] 0.4 mg/dL Normal 0.2-1.0 [facility] Comment on above: Performed By: #### C MP ####[facility] Tqejvjkrbw[address] [place], [place] [address]Dr. Tadeo Smyth Calcium [Mass/Vol] 8.7 mg/dL Normal 8.5-10.1 [facility] Comment on above: Performed By: #### C MP ####[facility] Nwioinviks9[address] [place], [place] [address]Dr. Tadeo Smyth Chloride [Moles/Vol] 109 mmol/L Critically high 98-107 [facility] Comment on above: Performed By: #### C MP ####[facility] Fowrhragrl3308 [place] [address]Dr. Tadeo Smyth CO2 [Moles/Vol] 27.9 mmol/L Normal 21.0-32.0 [facility] Comment on above: Performed By: #### C MP ####[facility] Qnygvsxqke6169 [place] [address]Dr. Tadeo Smyth Creatinine [Mass/Vol] 0.75 mg/dL Normal 0.55-1.02 [facility] Comment on above: Performed By: #### C MP ####[facility] Dybzgvljxi1241 [place] [address]Dr. Tadeo Smyth EGFR-AF KENYAN >60 Normal >=60 [facility] Comment on above: Performed By: #### C MP ####[facility] Pzadscluib4629 [place] [address]Dr. Tadeo Smyth EGFR-NON AF KENYAN >60 Normal >=60 [facility] Comment on above: Performed By: #### C MP ####[facility] Kokzutdebb1543 [place] [address]Dr. Tadeo Smyth Globulin (S) [Mass/Vol] 3.3 g/dL Normal [facility] Comment on above: Performed By: #### C MP ####[facility] Mqqntilxri3673 [place] [address]Dr. Tadeo Smyth Glucose [Mass/Vol] 95 mg/dL Normal 74-106 [facility] Comment on above: Performed By: #### C MP ####[facility] Remyggbkdp[address] [place] [address]Dr. Tadeo Smyth Potassium [Moles/Vol] 3.8 mmol/L Normal 3.5-5.1 [facility] Comment on above: Performed By: #### C MP ####[facility] Kcejrqponp[address] [place] [address]Dr. Tadeo Smyth Protein [Mass/Vol] 6.2 g/dL Critically low 6.4-8.2 [facility] Comment on above: Performed By: #### C MP ####[facility] Lyclmbbbcq[address] [place] [address]Dr. Tadeo Smyth Sodium [Moles/Vol] 141 mmol/L Normal 136-145 [facility] Comment on above: Performed By: #### C MP ####[facility] Lbszgqwrin[address] [place] [address]Dr. Tadeo Smyth Urea nitrogen [Mass/Vol] 8.0 mg/dL Normal 7.0-18.0 [facility] Comment on above: Performed By: #### C MP ####[facility] Vuponvwmxb[address] [place] [address]Dr. Tadeo Smyth Urea nitrogen/Creatinine [Mass ratio] 10.7 mg/mg Normal [facility] Comment on above: Performed By: #### C MP ####[facility] Dgjwiokkdn[address] [place], [place] [address]Dr. Tadeo Smyth UA (CLEAN/CATCH) SECONDARY SOCIAL STUDIES TEACHER/MICRO I F IND.on 03-28-2022 Bilirubin Ql (U) Negative Normal NEGATIVE [facility] Comment on above: Performed By: #### U MARE ICRO ####[facility] Rcrigmxaom[address] [place] [address]Dr. Tadeo Smyth Clarity (U) SL CLOUDY Abnormal CLEAR [facility] Comment on above: Performed By: #### U ACSBLANE ICRO ####[facility] Mnotrauycn88[address] [place] [address]Dr. Tadeo Smyth Color (U) LT. YELLOW Normal YELLOW [facility] Comment on above: Performed By: #### U ACSBLANE ICRO ####[facility] Qdnrylwcts92[address] [place] [address]Dr. Tadeo Smyth Glucose Ql (U) Negative Normal NEGATIVE [facility] Comment on above: Performed By: #### U ACSBLANE ICRO ####[facility] Itxqxlwiph7[address] [place] [address]Dr. Tadeo Smyth Hemoglobin Ql (U) TRACE-INTACT Abnormal NEGATIVE [facility] Comment on above: Performed By: #### U ACSBLANE UMICRO ####[facility] Cekfevayus[address] [place] [address]Dr. Tadeo Smyth Ketones Ql (U) TRACE Abnormal NEGATIVE [facility] Comment on above: Performed By: #### U MARE UMICRO ####[facility] Arzptrviff220[address] [place] [address]Dr. Tadeo Smyth LEUKOCYTES Negative Normal NEGATIVE [facility] Comment on above: Performed By: #### U MARE UMICRO ####[facility] Fwxgfjkqsk4[address] [place] [address]Dr. Tadeo Smyth Nitrite Ql (U) Negative Normal NEGATIVE [facility] Comment on above: Performed By: #### U MARE ICRO ####[facility] Srwactterk6610[address] [place], [place] [address]Dr. Tadeo Smyth pH (U) 6.5 [pH] Normal 5-9 [facility] Comment on above: Performed By: #### U MARE ICRO ####[facility] Hnzmqgygoa18[address] [place], [place] [address]Dr. Tadeo Smyth SPEC GRAVITY 1.015 Normal 1.005-<=1.0 25 [facility] Comment on above: Performed By: #### U MARE ICRO ####[facility] Whsxfryxwk[address]27[address] [place], [place] [address]Dr. Tadeo Smyth UA PROTEIN Negative Normal NEGATIVE/ TRACE [facility] Comment on above: Performed By: #### U MARE ICRO ####[facility] Skhbonazes5[address] [place], [place] [address]Dr. Tadeo Smyth UR MICRO IND INDICATED Normal [facility] Comment on above: Performed By: #### U MARE UMICRO ####[facility] Rxvfvikqug4790[address] [place], [place] [address]Dr. Tadeo Smyth Urobilinogen Qn (U) 0.2 {Benito'U}/dL Normal 0.2 - 1. 0 [facility] Comment on above: Performed By: #### U MARE UMICRO ####[facility] Czintwmahd133[address] [place], [place] [address]Dr. Tadeo Smyth URINE MICROSCOPIC ONLYon BACTERIA MODERATE Abnormal NONE SEEN [facility] Comment on above: Performed By: #### U ACSBLANE UMICRO ####[facility] Fslwziwzef35[address] [place] [address]Dr. Tadeo Smyth Bacteria identified Cx Nom (U) INDICATED Normal [facility] Comment on above: Performed By: #### U ACSBLANE UMICRO ####[facility] Vdvwweyscf6721 [place] [address]Dr. Tadeo Smyth CAST NONE SEEN Normal NONE SEEN [facility] Comment on above: Performed By: #### U ACSBLANE UMICRO ####[facility] Bwcfvclexv6648 [place] [address]Dr. Tadeo Smyth Crystals LM Nom (Urine sed) NONE SEEN Normal NONE SEEN [facility] Comment on above: Performed By: #### U ACSBLANE UMICRO ####[facility] Hckkawwebv40[address] [place] [address]Dr. Tadeo Smyth Epithelial cells LM Ql (Urine sed) RARE Normal NONE SEEN /RARE [facility] Comment on above: Performed By: #### U ACSBLANE UMICRO ####[facility] Tmnrskhwqb5[address] [place] [address]Dr. Tadeo Smyth MUCOUS NONE SEEN Normal NONE SEEN [facility] Comment on above: Performed By: #### U ACSBLANE UMICRO ####[facility] Jscwxffrmz4636 [place] [address]Dr. Tadeo Smyth RBC NONE SEEN Abnormal 0-2 [facility] Comment on above: Performed By: #### U ACSBLANE UMICRO ####[facility] Ockzfumscx77[address] [place] [address]Dr. Tadeo Smyth WBC 2-5 Abnormal NONE SEEN [facility] Comment on above: Performed By: #### U ACSBLANE, UMICRO ####[facility] Qralnpdjon0928 [place] [address]Dr. Tadeo Smyth XR ABD FLAT UP_PA Kasey 03-28 XR ABD FLAT UP_PA CH Normal [facility] CBC AUTO DIFFon 03-27-2022 BASO # 0.0 103/ul Normal 0.0-0.1 [facility] Comment on above: Performed By: #### C BC ####[facility] Xyifyrpctj67[address] [place], [place] [address]Dr. Tadeo Smyth Basophils/100 WBC (Bld) 0.5 % Normal 0.2-2.0 [facility] Comment on above: Performed By: #### C BC ####[facility] Cpmcemkatc423[address] [place], [place] [address]Dr. Margotnicole Haja EO # 0.2 103/ul Normal 0.0-0.7 [facility] Comment on above: Performed By: #### C BC ####[facility] Nrvftxtqtd9[address] [place], [place] [address]Dr. Margotnicole Haja Eosinophils/100 WBC (Bld) 3.2 % Normal 0.9-7.0 [facility] Comment on above: Performed By: #### C BC ####[facility] Obzpvzznlt0169[address] [place], [place] [address]Dr. Margotnicole Smyth Erythrocyte distribution width (RBC) [Ratio] 13.1 % Normal 11.0-15.0 [facility] Comment on above: Performed By: #### C BC ####[facility] Qeiisasnrm930[address] [place], [place] [address]Dr. Margotnicole Smyth Hematocrit (Bld) [Volume fraction] 34.8 % Critically low 36.0-48.0 [facility] Comment on above: Performed By: #### C BC ####[facility] Glptxlhqyk8924[address] [place], [place] [address]Dr. Tadeo Smyth Hemoglobin (Bld) [Mass/Vol] 11.3 g/dL Critically low 12.0-16.0 [facility] Comment on above: Performed By: #### C BC ####[facility] Qvpzeskiaa9677[address] [place], [place] [address]Dr. Tadeo Smyth IG # 0.01 10e3/ul Normal 0.00-0.03 [facility] Comment on above: Performed By: #### C BC ####[facility] Mrasfwbpsh9094 [place] [address]Dr. Margotnicole Smyth IG % 0.2 % Normal 0.0-0.5 [facility] Comment on above: Performed By: #### C BC ####[facility] Mpkavdspqi6804 [place] [address]Dr. Tadeo Smyth LYMPH # 1.6 103/ul Normal 1.2-3.8 [facility] Comment on above: Performed By: #### C BC ####[facility] Bimsbyuvnm037[address] [place], [place] [address]Dr. Margotnicole Smyth Lymphocytes/100 WBC (Bld) 29.1 % Normal 20.5-60.0 [facility] Comment on above: Performed By: #### C BC ####[facility] Slrtczagzd44[address] [place] [address]Dr. Tadeo Smyth MANUAL DIFF REQ NO Normal [facility] Comment on above: Performed By: #### C BC ####[facility] Xxzmzynbzx5688 [place] [address]Dr. Tadeo Haja MCH (RBC) [Entitic mass] 29.1 pg Normal 26.7-34.0 [facility] Comment on above: Performed By: #### C BC ####[facility] Ogmesisjat4[address] [place], [place] [address]Dr. Tadeo Haja MCHC (RBC) [Mass/Vol] 32.5 g/dL Normal 29.9-35.2 [facility] Comment on above: Performed By: #### C BC ####[facility] Bwxgpaiuue5929[address] [place], [place] [address]Dr. Tadeo Smyth MCV (RBC) [Entitic vol] 89.7 fL Normal 81.0-99.0 [facility] Comment on above: Performed By: #### C BC ####[facility] Zgjmnkaisz7[address] [place], [place] [address]Dr. Tadeo Smyth MONO # 0.3 103/ul Normal 0.3-0.8 [facility] Comment on above: Performed By: #### C BC ####[facility] Pyhbtfnmql1600[address] [place], [place] [address]Dr. Tadeo Smyth Monocytes/100 WBC (Bld) 5.7 % Normal 1.7-12.0 [facility] Comment on above: Performed By: #### C BC ####[facility] Pffqhmmzuu58[address] [place] [address]Dr. Tadeo Smyth NEUT # 3.5 103/ul Normal 1.4-6.5 [facility] Comment on above: Performed By: #### C BC ####[facility] Gvyvaluyrz4[address] [place] [address]Dr. Tadeo Smyth Neutrophils/100 WBC (Bld) 61.3 % Normal 43.0-75.0 [facility] Comment on above: Performed By: #### C BC ####[facility] Pbdgignwwz9775 [place] [address]Dr. Tadeo Smyth Platelet mean volume (Bld) [Entitic vol] 9.1 fL Critically low 9.5-13.5 [facility] Comment on above: Performed By: #### C BC ####[facility] Sibyakbrjh79[address] [place] [address]Dr. Tadeo Smyth PLT 355 103/ul Normal 150-450 [facility] Comment on above: Performed By: #### C BC ####[facility] Euzfdazquo9770[address] [place], [place] [address]Dr. Tadeo Smyth RBC 3.88 106/ul Critically low 4.20-5.40 [facility] Comment on above: Performed By: #### C BC ####[facility] Iyaspuyfzg024[address] [place], [place] [address]Dr. Tadoe Symth WBC 5.6 103/ul Normal 4.0-11.0 [facility] Comment on above: Performed By: #### C BC ####[facility] Bfgcmpzrgw3304[address] [place], [place] [address]Dr. Tadeo Smyth CT ABD/PELV W CONon 03-27-20 CT ABD/PELV W CON Normal [facility] CT ABD/PELVIS WO CONon 03-27 CT ABD/PELVIS WO CON Normal [facility] Covid-19 PCR (CVDTBH)on 03-06 SARS-CoV-2 (COVID-19) RNA CHEN+probe Ql (Unsp spec) Not detected Normal NOT DETECTED [facility] Comment on above: Result Comment: When [...] for this test is supported by the Airline [employer] Agent of Health and Human Service's declaration that [...] longer be used). Performed By: #### [facility] ####[facility] Cwcycktuif373[address] [place], [place] [address]Dr. Tadeo Smyth ER URINE PROFILEon Bilirubin Ql (U) Negative Normal NEGATIVE [facility] Comment on above: Performed By: #### E NOLAN, PREGU ####[facility] Acvsfhluyg3496[address] [place], [place] [address]Dr. Tadeo Smyth Clarity (U) CLEAR Normal CLEAR [facility] Comment on above: Performed By: #### E SARAH BETHR, PREGU ####[facility] Ahugxsqrrh4556[address] [place], [place] [address]Dr. Tadeo Smyth Color (U) LT. YELLOW Normal YELLOW [facility] Comment on above: Performed By: #### E RUR, PREGU ####[facility] Gvteogmmir0298[address] [place], [place] [address]Dr. Tadeo Smyth ERUAHD A micrscopic examina tion will be performed if indicated. Normal [facility] Comment on above: Performed By: #### E RUR, PREGU ####[facility] Tipttjcdog[address] [place], [place] [address]Dr. Tadeo Smyth Glucose Ql (U) Negative Normal NEGATIVE [facility] Comment on above: Performed By: #### E RUR, PREGU ####[facility] Pktpotppau3022[address] [place], [place] [address]Dr. Tadeo Smyth Hemoglobin Ql (U) SMALL Abnormal NEGATIVE [facility] Comment on above: Performed By: #### E RUR, PREGU ####[facility] Neihhysbwz757[address] [place], [place] [address]Dr. Tadeo Smyth Ketones Ql (U) TRACE Abnormal NEGATIVE [facility] Comment on above: Performed By: #### E RUR, PREGU ####[facility] Dnicpwkjbv0360[address] [place], [place] [address]Dr. Margotnicole Smyth LEUKOCYTES Negative Normal NEGATIVE [facility] Comment on above: Performed By: #### E RUR, PREGU ####[facility] Ngyfhmzywd6384[address] [place], [place] [address]Dr. Tadeo Smyth Nitrite Ql (U) Negative Normal NEGATIVE [facility] Comment on above: Performed By: #### E RUR, PREGU ####[facility] Injedyhhoo698[address] [place], [place] [address]Dr. Tadeo Smyth pH (U) 6.0 [pH] Normal 5-9 [facility] Comment on above: Performed By: #### E RUR, PREGU ####[facility] Ejjtkrpbif1488[address] [place], [place] [address]Dr. Margotnicole Smyth SPEC GRAVITY >=1.030 Abnormal 1.005-<=1.0 25 [facility] Comment on above: Performed By: #### E RUR, PREGU ####[facility] Kvrtsyuqpc448[address] [place], [place] [address]Dr. Tadeo Smyth UA PROTEIN Negative Normal NEGATIVE/ TRACE [facility] Comment on above: Performed By: #### E RUR, PREGU ####[facility] Cqkeugtxua7660[address] [place], [place] [address]Dr. Tadeo Smyth UR MICRO IND NOT INDICATED Normal [facility] Comment on above: Performed By: #### E RUR, PREGU ####[facility] Pgvrpyxdyy[address] [place] [address]Dr. Tadeo Smyth Urobilinogen Qn (U) 0.2 {Benito'U}/dL Normal 0.2 - 1. 0 [facility] Comment on above: Performed By: #### E RUR, PREGU ####[facility] Ueperlvmly4[address] [place] [address]Dr. Tadeo Smyth LIPASEon 03-27-2022 Lipase [Catalytic activity/Vol] 126.0 U/L Normal 73.0-393.0 [facility] Comment on above: Performed By: #### L IPA, CMP ####[facility] Heqcunutxu089[address] [place], [place] [address]Dr. Tadeo Smyth URon 03-27-2022 , QUAL Negative Normal NEGATIVE [facility] Comment on above: Performed By: #### E RUR, PREGU ####[facility] Orwgzvcuku6119[address] [place], [place] [address]Dr. Tadeo Smyth PROF 14(COMP METB)on 022 Albumin [Mass/Vol] 3.6 g/dL Normal 3.4-5.0 [facility] Comment on above: Performed By: #### L IPA, CMP ####[facility] Nphxritijl9815[address] [place], [place] [address]Dr. Tadeo Smyth Albumin/Globulin [Mass ratio] 1.1 {ratio} Normal [facility] Comment on above: Performed By: #### L IPA, CMP ####[facility] Olfcohrzzf930[address] [place], [place] [address]Dr. Tadeo Smyth ALP [Catalytic activity/Vol] 139 U/L Critically high 46-116 [facility] Comment on above: Performed By: #### L IPA, CMP ####[facility] Mzgfjnzgcc3306[address] [place], [place] [address]Dr. Tadeo Smyth ALT [Catalytic activity/Vol] 18 U/L Normal 14-59 [facility] Comment on above: Performed By: #### L IPA, CMP ####[facility] Afmkuzylvy1074[address] [place], [place] [address]Dr. Tadeo Smyth Anion gap [Moles/Vol] 10.7 mmol/L Normal [facility] Comment on above: Performed By: #### L IPA, CMP ####[facility] Gosvbxaceo99[address] [place] [address]Dr. Tadeo Smyth AST [Catalytic activity/Vol] 11 U/L Critically low 15-37 [facility] Comment on above: Performed By: #### L IPA, CMP ####[facility] Mxxkwyfcve0471 [place] [address]Dr. Tadeo Smyth Bilirubin [Mass/Vol] 0.2 mg/dL Normal 0.2-1.0 [facility] Comment on above: Performed By: #### L IPA, CMP ####[facility] Kczeqahtaq8406[address] [place], [place] [address]Dr. Tadeo Smyth Calcium [Mass/Vol] 9.0 mg/dL Normal 8.5-10.1 [facility] Comment on above: Performed By: #### L IPA, CMP ####[facility] Jnwtfjycsx524[address] [place], [place] [address]Dr. Tadeo Smyth Chloride [Moles/Vol] 106 mmol/L Normal 98-107 [facility] Comment on above: Performed By: #### L IPA, CMP ####[facility] Dncfrpkfii6957[address] [place], [place] [address]Dr. Tadeo Smyth CO2 [Moles/Vol] 26.9 mmol/L Normal 21.0-32.0 [facility] Comment on above: Performed By: #### L IPA, CMP ####[facility] Hrdhltiafx217[address] [place], [place] [address]Dr. Tadeo Smyth Creatinine [Mass/Vol] 0.84 mg/dL Normal 0.55-1.02 [facility] Comment on above: Performed By: #### L IPA, CMP ####[facility] Lubvnqjcbh4[address] [place], [place] [address]Dr. Tadeo Smyth EGFR-AF KENYAN >60 Normal >=60 [facility] Comment on above: Performed By: #### L IPA, CMP ####[facility] Kxvheqkinu37[address] [place] [address]Dr. Tadeo Smyth EGFR-NON AF KENYAN >60 Normal >=60 [facility] Comment on above: Performed By: #### L IPA, CMP ####[facility] Asxhtfwgec8[address] [place], [place] [address]Dr. Tadeo Smyth Globulin (S) [Mass/Vol] 3.4 g/dL Normal [facility] Comment on above: Performed By: #### L IPA, CMP ####[facility] Iebmkyntoc8165[address] [place], [place] [address]Dr. Tadeo Smyth Glucose [Mass/Vol] 96 mg/dL Normal 74-106 [facility] Comment on above: Performed By: #### L IPA, CMP ####[facility] Ojyodkrrwx6926[address] [place], [place] [address]Dr. Tadeo Smyth Potassium [Moles/Vol] 3.6 mmol/L Normal 3.5-5.1 [facility] Comment on above: Performed By: #### L IPA, CMP ####[facility] Uttiaajpxl4919[address] [place], [place] [address]Dr. Tadeo Smyth Protein [Mass/Vol] 7.0 g/dL Normal 6.4-8.2 [facility] Comment on above: Performed By: #### L IPA, CMP ####[facility] Tvmebbrnsz336[address] [place], [place] [address]Dr. Tadeo Smyth Sodium [Moles/Vol] 140 mmol/L Normal 136-145 [facility] Comment on above: Performed By: #### L IPA, CMP ####[facility] Eukjtqcpnt1525[address] [place], [place] [address]Dr. Tadeo Smyth Urea nitrogen [Mass/Vol] 23.0 mg/dL Critically high 7.0-18.0 [facility] Comment on above: Performed By: #### L IPA, CMP ####[facility] Inyevzbhpu17[address] [place], [place] [address]Dr. Tadeo Smyth Urea nitrogen/Creatinine [Mass ratio] 27.4 mg/mg Normal [facility] Comment on above: Performed By: #### L IPA, CMP ####[facility] Fwwxukutkz67[address] [place] [address]Dr. Tadeo Smyth GROUP A STREP CULTUREon S. pyogenes Ag Ql (Unsp spec) Normal [facility] Comment on above: Performed By: #### G RASTCX, SSCRN ####[facility] Dasojxdrgi4517[address] [place], [place] [address]Dr. Tadeo Smyth AMYLASEon 02-02-2022 Amylase [Catalytic activity/Vol] 37 U/L Normal 25-115 [facility] Comment on above: Performed By: #### C MP, VIJI, LIPA ####[facility] Ysznznewog0336[address] [place], [place] [address]Dr. Tadeo Smyth CBC AUTO DIFFon 02-02-2022 BASO # 0.0 103/ul Normal 0.0-0.1 [facility] Comment on above: Performed By: #### C BC ####[facility] Mepdlfujxv[address]25[address] [place], [place] [address]Dr. Margotnicole Smyth Basophils/100 WBC (Bld) 0.2 % Normal 0.2-2.0 [facility] Comment on above: Performed By: #### C BC ####[facility] Nmsbyiwghs9[address] [place], [place] [address]Dr. Tadeo Smyth EO # 0.0 103/ul Normal 0.0-0.7 [facility] Comment on above: Performed By: #### C BC ####[facility] Beweusutty232[address] [place], [place] [address]Dr. Tadeo Haja Eosinophils/100 WBC (Bld) 0.2 % Critically low 0.9-7.0 [facility] Comment on above: Performed By: #### C BC ####[facility] Rlchnlnzqx5060[address] [place], [place] [address]Dr. Tadeo Smyth Erythrocyte distribution width (RBC) [Ratio] 13.4 % Normal 11.0-15.0 [facility] Comment on above: Performed By: #### C BC ####[facility] Qumwlphqux3160[address] [place], [place] [address]Dr. Tadeo Haja Hematocrit (Bld) [Volume fraction] 36.8 % Normal 36.0-48.0 [facility] Comment on above: Performed By: #### C BC ####[facility] Zorprgyzhu[address] [place] [address]DrNeo Tadeo Haja Hemoglobin (Bld) [Mass/Vol] 11.6 g/dL Critically low 12.0-16.0 [facility] Comment on above: Performed By: #### C BC ####[facility] Kqblhvqiej54[address] [place] [address]DrNeo Frostnicole Haja IG # 0.08 10e3/ul Critically high 0.00-0.03 [facility] Comment on above: Performed By: #### C BC ####[facility] Zyyzftblrf2[address] [place], [place] [address]DrNeo Smyth IG % 0.6 % Critically high 0.0-0.5 [facility] Comment on above: Performed By: #### C BC ####[facility] Svmacuzhlf[address] [place], [place] [address]DrNeo Smyth LYMPH # 0.9 103/ul Critically low 1.2-3.8 [facility] Comment on above: Performed By: #### C BC ####[facility] Anssmdehzn55[address] [place], [place] [address]DrNeo Smyth Lymphocytes/100 WBC (Bld) 6.9 % Critically low 20.5-60.0 [facility] Comment on above: Performed By: #### C BC ####[facility] Bdrfiucplb[address] [place], [place] [address]DrNeo Smyth MANUAL DIFF REQ NO Normal [facility] Comment on above: Performed By: #### C BC ####[facility] Cljkgpgyeb[address] [place] [address]DrNeo Smyth MCH (RBC) [Entitic mass] 28.9 pg Normal 26.7-34.0 [facility] Comment on above: Performed By: #### C BC ####[facility] Ikubddjwsn350[address] [place] [address]DrNeo Smyth MCHC (RBC) [Mass/Vol] 31.5 g/dL Normal 29.9-35.2 [facility] Comment on above: Performed By: #### C BC ####[facility] [address] [place] [address]DrNeo Smyth MCV (RBC) [Entitic vol] 91.8 fL Normal 81.0-99.0 [facility] Comment on above: Performed By: #### C BC ####[facility] [address]rljbpjfx[address] [place] [address]DrNeo Smyth MONO # 0.9 103/ul Critically high 0.3-0.8 [facility] Comment on above: Performed By: #### C BC ####[facility] Ieqhaeemdp3403 [place] [address]DrNeo Smyth Monocytes/100 WBC (Bld) 6.9 % Normal 1.7-12.0 [facility] Comment on above: Performed By: #### C BC ####[facility] [address] [place], [place] [address]DrNeo Smyth NEUT # 11.6 103/ul Critically high 1.4-6.5 [facility] Comment on above: Performed By: #### C BC ####[facility] [address] [place], [place] [address]DrNeo Smyth Neutrophils/100 WBC (Bld) 85.2 % Critically high 43.0-75.0 [facility] Comment on above: Performed By: #### C BC ####[facility] Rhdezbscqc[address] [place], [place] [address]DrNeo Smyth Platelet mean volume (Bld) [Entitic vol] 8.9 fL Critically low 9.5-13.5 [facility] Comment on above: Performed By: #### C BC ####[facility] Z[address]tyl[address] [place], [place] [address]DrNeo Smyth PLT 331 103/ul Normal 150-450 [facility] Comment on above: Performed By: #### C BC ####[facility] Zcskfwujmm5[address] [place] [address]DrNeo Smyth RBC 4.01 106/ul Critically low 4.20-5.40 [facility] Comment on above: Performed By: #### C BC ####[facility] Xjvvzplsno7380 [place] [address]Dr. Tadoe Smyth WBC 13.7 103/ul Critically high 4.0-11.0 [facility] Comment on above: Performed By: #### C BC ####[facility] Aktpcllckx8[address] [place] [address]Dr. Tadeo Smyth Covid-19 PCR (CVDTB)on 01-05 SARS-CoV-2 (COVID-19) RNA CHEN+probe Ql (Unsp spec) Not detected Normal NOT DETECTED [facility] Comment on above: Result Comment: When [...] for this test is supported by the Airline Operations Agent of Health and Human Service's declaration that [...] be used). Performed By: #### C VDTBH ####[facility] Jmcrakbcph75[address] [place] [address]Dr. Tadeo Smyth LIPASEon 02-02-2022 Lipase [Catalytic activity/Vol] 33.0 U/L Critically low 73.0-393.0 [facility] Comment on above: Performed By: #### C VIJI GARCIA, LIPA ####[facility] Xivykmsgdj98[address] [place] [address]Dr. Tadeo Smyth MONOon 02-02-2022 Monocytes (Bld) [#/Vol] Negative Normal NEGATIVE [facility] Comment on above: Performed By: #### M JESSICA ####[facility] Riohgnurdj[address] [place] [address]Dr. Tadeo Smyth PROF 14(COMP METB)on 022 Albumin [Mass/Vol] 3.1 g/dL Critically low 3.4-5.0 [facility] Comment on above: Performed By: #### C MP VIJI, LIPA ####[facility] Ikvlcwdmxl0254 [place] [address]Dr. Tadeo Smyth Albumin/Globulin [Mass ratio] 0.9 {ratio} Normal [facility] Comment on above: Performed By: #### C JOSE VIJI, LIPA ####[facility] Esjhrmqpza[address] [place], [place] [address]Dr. Tadeo Smyth ALP [Catalytic activity/Vol] 131 U/L Critically high 46-116 [facility] Comment on above: Performed By: #### C JOSE VIJI, LIPA ####[facility] Zufnb[address] [place], [place] [address]Dr. Tadeo Smyth ALT [Catalytic activity/Vol] 25 U/L Normal 14-59 [facility] Comment on above: Performed By: #### C JOSE VIJI, LIPA ####[facility] Rwuwaqvwdn[address] [place], [place] [address]Dr. Tadeo Smyth Anion gap [Moles/Vol] 10.0 mmol/L Normal [facility] Comment on above: Performed By: #### C MP VIJI, LIPA ####[facility] Eqjqroppzp3217[address] [place], [place] [address]Dr. Tadeo Smyth AST [Catalytic activity/Vol] 19 U/L Normal 15-37 [facility] Comment on above: Performed By: #### C JOSE VIJI, LIPA ####[facility] Cwdnivtnya[address] [place], [place] [address]Dr. Tadeo Smyth Bilirubin [Mass/Vol] 0.6 mg/dL Normal 0.2-1.0 [facility] Comment on above: Performed By: #### C JOSE VIJI, LIPA ####[facility] Jaukpbutlk4[address] [place] [address]Dr. Tadeo Smyth Calcium [Mass/Vol] 8.2 mg/dL Critically low 8.5-10.1 [facility] Comment on above: Performed By: #### C MP, VIJI, LIPA ####[facility] Ttgemhqirx13[address] [place], [place] [address]Dr. Tadeo Smyth Chloride [Moles/Vol] 106 mmol/L Normal 98-107 [facility] Comment on above: Performed By: #### C MP, VIJI, LIPA ####[facility] Qdywoghczu389[address] [place], [place] [address]Dr. Tadeo Smyth CO2 [Moles/Vol] 25.5 mmol/L Normal 21.0-32.0 [facility] Comment on above: Performed By: #### C MP, VIJI, LIPA ####[facility] Entostduda157[address] [place], [place] [address]Dr. Tadeo Smyth Creatinine [Mass/Vol] 0.78 mg/dL Normal 0.55-1.02 [facility] Comment on above: Performed By: #### C MP, VIJI, LIPA ####[facility] Ndwtbdygxm[address] [place], [place] [address]Dr. Tadeo Smyth EGFR-AF KENYAN >60 Normal >=60 [facility] Comment on above: Performed By: #### C MP, VIJI, LIPA ####[facility] Yipzcjgyvf[address] [place], [place] [address]Dr. Tadeo Smyth EGFR-NON AF KENYAN >60 Normal >=60 [facility] Comment on above: Performed By: #### C MP, VIJI, LIPA ####[facility] Vivldhtucn023[address] [place], [place] [address]Dr. Tadeo Smyth Globulin (S) [Mass/Vol] 3.6 g/dL Normal [facility] Comment on above: Performed By: #### C MP, VIJI, LIPA ####[facility] Qxtaipyung25[address] [place], [place] [address]Dr. Tadeo Smyth Glucose [Mass/Vol] 110 mg/dL Critically high 74-106 [facility] Comment on above: Performed By: #### C MP, VIJI, LIPA ####[facility] Wtpvhnimvm17[address] [place] [address]Dr. Tadeo Smyth Potassium [Moles/Vol] 3.5 mmol/L Normal 3.5-5.1 [facility] Comment on above: Performed By: #### C MP, VIJI, LIPA ####[facility] Gxffpoxria350[address] [place] [address]Dr. Tadeo Smyth Protein [Mass/Vol] 6.7 g/dL Normal 6.4-8.2 [facility] Comment on above: Performed By: #### C MP, VIJI, LIPA ####[facility] Dvchzioxdm1790 [place] [address]Dr. Tadeo Smyth Sodium [Moles/Vol] 138 mmol/L Normal 136-145 [facility] Comment on above: Performed By: #### C MP, VIJI, LIPA ####[facility] Zxzegasqor26[address] [place], [place] [address]Dr. Tadeo Smyth Urea nitrogen [Mass/Vol] 11.0 mg/dL Normal 7.0-18.0 [facility] Comment on above: Performed By: #### C MP, VIJI, LIPA ####[facility] S[address]pmjwekri[address] [place], [place] [address]Dr. Tadeo Smyth Urea nitrogen/Creatinine [Mass ratio] 14.1 mg/mg Normal [facility] Comment on above: Performed By: #### C MP, VIJI, LIPA ####[facility] Sepacfcpll7378[address] [place], [place] [address]Dr. Tadeo Smyth STREPT SCREENon 02-02-2022 STREP SCREEN A Negative Normal NEGATIVE [facility] Comment on above: Performed By: #### G RASTCX, SSCRN ####[facility] Irmxwwwuof[address] [place], [place] [address]Dr. Tadeo Smyth BASIC METABOLIC PANELon 08-05 Calcium [Mass/Vol] 8.4 mg/dL Low 8.6-10.3 [facility] Comment on above: Order Comment: No: D o not add to previous draw Performed By: #### 3 373, 99755 #### [facility] [address] [place] [address], [place] Chloride [Moles/Vol] 108 mmol/L High 98-107 [facility] Comment on above: Order Comment: No: D o not add to previous draw Performed By: #### 3 220, 62674 #### [facility] [address] [place] [address], [place] CO2 [Moles/Vol] 26 mmol/L Normal 21-31 [facility] Comment on above: Order Comment: No: D o not add to previous draw Performed By: #### 3 946, 14037 #### [facility] [address] [place] [address], [place] Creatinine [Mass/Vol] 0.79 mg/dL Normal 0.60-1.20 [facility] Comment on above: Order Comment: No: D o not add to previous draw Performed By: #### 3 769, 96016 #### [facility] [address] [place] [address], [place] GFR/1.73 sq M predicted among blacks MDRD (S/P/Bld) [Vol rate/Area] mL/min/{1.73_m2} Normal >60 [facility] Comment on above: Order Comment: No: D o not add to previous draw Performed By: #### 3 457, 80166 #### [facility] [address] [place] [address], [place] GFR/1.73 sq M predicted among non-blacks MDRD (S/P/Bld) [Vol rate/Area] mL/min/{1.73_m2} Normal >60 [facility] Comment on above: Order Comment: No: D o not add to previous draw Performed By: #### 3 944, 38856 #### [facility] [address] [place] [address], [place] Glucose [Mass/Vol] 98 mg/dL Normal 70-100 [facility] Comment on above: Order Comment: No: D o not add to previous draw Performed By: #### 3 770, 32333 #### [facility] [address] [place] [address], [place] Potassium [Moles/Vol] 3.5 mmol/L Normal 3.5-5.1 [facility] Comment on above: Order Comment: No: D o not add to previous draw Performed By: #### 3 776, 50107 #### [facility] [address] [place] [address], [place] Sodium [Moles/Vol] 139 mmol/L Normal 136-145 [facility] Comment on above: Order Comment: No: D o not add to previous draw Performed By: #### 3 033, 54490 #### [facility] [address] [place] [address], [place] Urea nitrogen [Mass/Vol] 11 mg/dL Normal 7-25 [facility] Comment on above: Order Comment: No: D o not add to previous draw Performed By: #### 3 229, 78078 #### [facility] [address] [place] [address], [place] BLOOD STOOL GUAIACon 019 BLD STOOL GUAIAC Negative Normal NEGATIVE [facility] Comment on above: Order Comment: No: D o not add to previous draw Performed By: #### 3 408, 07323 #### [facility] [address] [place] [address], [place] MAGNESIUM BLOODon 08-16-2019 Magnesium [Mass/Vol] 2.0 mg/dL Normal 1.9-2.7 [facility] Comment on above: Order Comment: No: D o not add to previous draw Performed By: #### 3 030, 18384 #### [facility] [address] [place] [address], [place] *URINE CULTUREon 08-15-2019 Bacteria identified Cx Nom (U) Clinical Report: (D) Specimen/Source: URINE/MIDSTREAM Collected: 08/15/2019 20:40 Status: Final Last Updated: 08/17/2019 08:05 ISO (Final) Escherichia coli >100,000 Cfu/Ml ISOLATE: Escherichia coli RHONDA (mcg/ml) AMP./SULBAC (AMS) 16/8 Intermediate AMPICILLIN (AM) >16 Resistant AZTREONAM (AZM) <=1 Susceptible CEFAZOLIN (CZ) 2 Susceptible CEFTRIAXONE (LOAN OFFICER ASSISTANT) <=0.5 Susceptible CIPROFLOXACIN (CIP) >2 Resistant ESBL (-/+) (ESBL) Negative GENTAMICIN (GM) <=1 Susceptible NITROFURANTOIN (FT) <=16 Susceptible PIP/TAZO (TZP) 4/4 Susceptible TOBRAMYCIN (TOB) 1 Susceptible TRIMETH/SULFA (SXT) >2/38 Resistant Normal [facility] Comment on above: Performed By: #### 3 6901, 01937 #### [facility] [address] BASIC METABOLIC PANELon 12 Calcium [Mass/Vol] 8.8 mg/dL Normal 8.6-10.3 [facility] Comment on above: Order Comment: No: D o not add to previous draw Performed By: #### 0 0071, 62572, 96263 #### [facility] [address] Chloride [Moles/Vol] 107 mmol/L Normal 98-107 [facility] Comment on above: Order Comment: No: D o not add to previous draw Performed By: #### 0 0071, 67324, 17587 #### [facility] [address] [place] [address], [facility] CO2 [Moles/Vol] 27 mmol/L Normal 21-31 [facility] Comment on above: Order Comment: No: D o not add to previous draw Performed By: #### 0 0071, 66525, 89613 #### [facility] [address] [place] [address], [place] Creatinine [Mass/Vol] 0.99 mg/dL Normal 0.60-1.20 [facility] Comment on above: Order Comment: No: D o not add to previous draw Performed By: #### 0 0071, 63012, 02135 #### [facility] [address] [place] [address], [place] GFR/1.73 sq M predicted among blacks MDRD (S/P/Bld) [Vol rate/Area] mL/min/{1.73_m2} Normal >60 [facility] Comment on above: Order Comment: No: D o not add to previous draw Performed By: #### 0 0071, 55478, 67121 #### [facility] [address] [place] [address], [place] GFR/1.73 sq M predicted among non-blacks MDRD (S/P/Bld) [Vol rate/Area] 59 ml/min/1.73sq m Abnormal >60 [facility] Comment on above: Order Comment: No: D o not add to previous draw Performed By: #### 0 0071, 18901, 36103 #### [facility] [address] [place] [address], [place] Glucose [Mass/Vol] 100 mg/dL Normal 70-100 [facility] Comment on above: Order Comment: No: D o not add to previous draw Performed By: #### 0 0071, 71979, 03807 #### [facility] [address] [place] [address], [place] Potassium [Moles/Vol] 3.6 mmol/L Normal 3.5-5.1 [facility] Comment on above: Order Comment: No: D o not add to previous draw Performed By: #### 0 0071, 49897, 28520 #### [facility] [address] [place] [address], [place] Sodium [Moles/Vol] 140 mmol/L Normal 136-145 [facility] Comment on above: Order Comment: No: D o not add to previous draw Performed By: #### 0 0071, 76146, 22324 #### [facility] [address] [place] [address], [facility] Urea nitrogen [Mass/Vol] 9 mg/dL Normal 7-25 [facility] Comment on above: Order Comment: No: D o not add to previous draw Performed By: #### 0 0071, 71289, 54517 #### [facility] [address] [place] [address], [facility] LACTATE BLOODon 08-15-2019 Lactate [Moles/Vol] 0.8 mmol/L Normal 0.5-2.2 [facility] Comment on above: Order Comment: Yes: Add to Previous draw if able Performed By: #### 1 0054 #### [facility] [address] [facility] [address] LMWH HEPARIN ASSAYon 019 LOW MOLECULAR WEIGHT HEPARIN 0.32 IU/mL Low 0.60-1.20 [facility] Comment on above: Order Comment: (draw [...] UFH and LMWH. Performed By: #### 3 5391, 62546 #### [facility] [address] [place] [address], [facility] MAGNESIUM BLOODon 08-15-2019 Magnesium [Mass/Vol] 1.7 mg/dL Low 1.9-2.7 [facility] Comment on above: Order Comment: No: D o not add to previous draw Performed By: #### 0 0071, 89960, 57749 #### [facility] [address] [place] [address], [facility] PHOSPHORUS BLOODon 9 Phosphate [Mass/Vol] 4.1 mg/dL Normal 2.5-5.0 [facility] Comment on above: Order Comment: No: D o not add to previous draw Performed By: #### 0 0071, 91453, 11982 #### [facility] [address] [place] [address], [facility] UGI WITH SMALL BOWELon 08-15 UGI WITH SMALL BOWEL [facility] Department of Radiology [address] [place], [place] [id number] Patient Name: CONSTANTINO CARDOSO : 1970 Sex: F Age: Race: White Pt. Location: [id number] Patient Status: O Ordered Date: 08/15/2019 10:45:00 [...] ischemia. Electronically signed by:Orestes Condon. Transcribed by: [id number], User Resident: Electronically Signed by: ORESTES CONDON @ 08/15/2019 04:13 PM Normal [facility] Comment on above: Order Comment: R/O O bstruction URINALYSIS REFLEXon 08-15-20 19 Appearance (U) SL CLOUDY Abnormal CLEAR [facility] Comment on above: Order Comment: No: D o not add to previous drawCriteria for reflexing a culture was met. Urine Culture and sensitivitywill be performed. Performed By: #### 3 1601, 48028 #### [facility] [address] [place] [address], [facility] Bilirubin [Mass/Vol] Negative Normal NEGATIVE [facility] Comment on above: Order Comment: No: D o not add to previous drawCriteria for reflexing a culture was met. Urine Culture and sensitivitywill be performed. Performed By: #### 3 8481, 25853 #### [facility] [address] [place] [address], [facility] BLOOD SMALL Abnormal NEGATIVE [facility] Comment on above: Order Comment: No: D o not add to previous drawCriteria for reflexing a culture was met. Urine Culture and sensitivitywill be performed. Performed By: #### 3 6901, 27765 #### [facility] [address] [place] [address], [place] Color (U) YELLOW Normal YELLOW [facility] Comment on above: Order Comment: No: D o not add to previous drawCriteria for reflexing a culture was met. Urine Culture and sensitivitywill be performed. Performed By: #### 3 6901, 00471 #### [facility] [address] [place] [address], [facility] EPIS OCC Normal FEW,OCC,NON E SEEN [facility] Comment on above: Order Comment: No: D o not add to previous drawCriteria for reflexing a culture was met. Urine Culture and sensitivitywill be performed. Performed By: #### 3 497, 07453 #### [facility] [address] [place] [place] [address], [place] Glucose [Mass/Vol] Negative Normal NEGATIVE [facility] Comment on above: Order Comment: No: D o not add to previous drawCriteria for reflexing a culture was met. Urine Culture and sensitivitywill be performed. Performed By: #### 3 0251, 48256 #### [facility] [address] [place] [address], [place] HYALINE CASTS 6-10 Abnormal NONE SEEN [facility] Comment on above: Order Comment: No: D o not add to previous drawCriteria for reflexing a culture was met. Urine Culture and sensitivitywill be performed. Performed By: #### 3 6901, 53856 #### [facility] [address] [place] [address], [place] KETONE Negative Normal NEGATIVE [facility] Comment on above: Order Comment: No: D o not add to previous drawCriteria for reflexing a culture was met. Urine Culture and sensitivitywill be performed. Performed By: #### 3 690, 34903 #### [facility] [address] [place] [address], [facility] LEUK JONN MODERATE Abnormal NEGATIVE [facility] Comment on above: Order Comment: No: D o not add to previous drawCriteria for reflexing a culture was met. Urine Culture and sensitivitywill be performed. Performed By: #### 3 690, 58032 #### [facility] [address] [place] [address], [place] MUCUS THREADS FEW Abnormal NONE SEEN [facility] Comment on above: Order Comment: No: D o not add to previous drawCriteria for reflexing a culture was met. Urine Culture and sensitivitywill be performed. Performed By: #### 3 690, 58390 #### [facility] [address] [place] [address], [facility] Nitrite Ql (U) Negative Normal NEGATIVE [facility] Comment on above: Order Comment: No: D o not add to previous drawCriteria for reflexing a culture was met. Urine Culture and sensitivitywill be performed. Performed By: #### 3 690, 09460 #### [facility] [address] [place] [address], [facility] pH (Bld) 5.0 Normal 5.0-8.0 [facility] Comment on above: Order Comment: No: D o not add to previous drawCriteria for reflexing a culture was met. Urine Culture and sensitivitywill be performed. Performed By: #### 3 690, 26312 #### [facility] [address] [place] [address], [facility] Protein (U) [Mass/Vol] Negative Normal NEGATIVE [facility] Comment on above: Order Comment: No: D o not add to previous drawCriteria for reflexing a culture was met. Urine Culture and sensitivitywill be performed. Performed By: #### 3 065, 68923 #### [facility] [address] [place] [address], [facility] RBC (U) [#/Vol] 6-10 Abnormal NONE SEEN [facility] Comment on above: Order Comment: No: D o not add to previous drawCriteria for reflexing a culture was met. Urine Culture and sensitivitywill be performed. Performed By: #### 3 6901, 58694 #### [facility] [address] [facility] [place] [address], [facility] SPEC GRAV 1.025 High 1.015-1.020 [facility] Comment on above: Order Comment: No: D o not add to previous drawCriteria for reflexing a culture was met. Urine Culture and sensitivitywill be performed. Performed By: #### 3 6901, 46222 #### [facility] [address] [facility] [address], [facility] WBC UA 51-100 Abnormal NONE SEEN [facility] Comment on above: Order Comment: No: D o not add to previous drawCriteria for reflexing a culture was met. Urine Culture and sensitivitywill be performed. Performed By: #### 3 6901, 18897 #### [facility] [address] [facility]. [address] CBC COMPLETE BLOOD COUNTon 1 10-15-2018 Erythrocyte distribution width (RBC) [Ratio] 12.7 % Normal 11.5-15.0 [facility] Comment on above: Order Comment: No: D o not add to previous draw Performed By: #### 5 0608 #### [facility] [address] [facility] [address] Hematocrit (Bld) [Volume fraction] 31.2 % Low 36.0-45.0 [facility] Comment on above: Order Comment: No: D o not add to previous draw Performed By: #### 5 0608 #### [facility] [address] [place] [address], [facility] Hemoglobin (Bld) [Mass/Vol] 9.8 g/dL Low 12.0-15.0 [facility] Comment on above: Order Comment: No: D o not add to previous draw Performed By: #### 5 0608 #### [facility] [address] MCH (RBC) [Entitic mass] 29.1 pg Normal 27.0-33.0 [facility] Comment on above: Order Comment: No: D o not add to previous draw Performed By: #### 5 0608 #### [facility] [address] MCHC (RBC) [Mass/Vol] 31.4 g/dL Low 32.0-35.0 [facility] Comment on above: Order Comment: No: D o not add to previous draw Performed By: #### 5 [id number] #### [facility] [address] [place] [address], [facility] MCV (RBC) [Entitic vol] 92.6 fL Normal 82.0-98.0 [facility] Comment on above: Order Comment: No: D o not add to previous draw Performed By: #### 5 0608 #### [facility] [address] Nucleated RBC/100 WBC (Bld) [Ratio] 0 % Normal 0-0 [facility] Comment on above: Order Comment: No: D o not add to previous draw Performed By: #### 5 0608 #### [facility] [address] [place] [address], [facility] PLAT CNT 340 10*3/uL Normal 150-400 [facility] Comment on above: Order Comment: No: D o not add to previous draw Performed By: #### 5 0608 #### [facility] [address] [place] [address], [facility] RBC (Bld) [#/Vol] 3.37 10*6/uL Low 3.80-5.00 [facility] Comment on above: Order Comment: No: D o not add to previous draw Performed By: #### 5 0608 #### [facility] 3000 [place] [address], [facility] WBC (Bld) [#/Vol] 6.04 10*3/uL Normal 4.00-10.60 [facility] Comment on above: Order Comment: No: D o not add to previous draw Performed By: #### 5 0608 #### [facility] [address] [facility] [address] PROTHROMBIN TIMEon 12 9 INR Coag (PPP) [Relative time] 1.09 {INR} Normal 0.91-1.16 [facility] Comment on above: Order Comment: No: [...] 1995;[id number]. Performed By: #### 5 6101 #### [facility] [address] PT Coag (PPP) [Time] 14.1 s Normal 12.3-14.8 [facility] Comment on above: Order Comment: No: D o not add to previous draw Result Comment: ALL RESULTS MUST BE INTERPRETED WITH RESPECT TO BLOOD DRAWING ARTIFACT OR DILUTION ERROR OF ANTICOAGULANT AT THE TIME OF SAMPLING. Performed By: #### 5 6101 #### [address] LIVERon 08-14-2019 [facility] Department of Radiology [address] [place] [id number] Patient Name: CONSTANTINO CARDOSO : 1970 Sex: F Age: Race: White Pt. Location: [id number] Patient Status: O Ordered Date: 08/13/2019 8:30:00 [...] cholecystectomy. Electronically signed by:Orestes Condon. Transcribed by: [email or web address], User Resident: Electronically Signed by: ORESTES CONDON @ 08/14/2019 02:09 PM Normal [facility] Comment on above: Order Comment: R/O S tones BASIC METABOLIC PANELon 12-0 Calcium [Mass/Vol] 9.4 mg/dL Normal 8.6-10.3 [facility] Comment on above: Order Comment: No: D o not add to previous draw Performed By: #### 3 344, 88610 #### [facility] [address] [place] [address], [place] Chloride [Moles/Vol] 105 mmol/L Normal 98-107 [facility] Comment on above: Order Comment: No: D o not add to previous draw Performed By: #### 3 132, [id number] #### [facility] [address] [place] [address], [place] CO2 [Moles/Vol] 26 mmol/L Normal 21-31 [facility] Comment on above: Order Comment: No: D o not add to previous draw Performed By: #### 3 913, 21138 #### [facility] [address] [place] [address], [place] Creatinine [Mass/Vol] 1.03 mg/dL Normal 0.60-1.20 [facility] Comment on above: Order Comment: No: D o not add to previous draw Performed By: #### 3 940, 28026 #### [facility] [address] [place] [address], [place] GFR/1.73 sq M predicted among blacks MDRD (S/P/Bld) [Vol rate/Area] mL/min/{1.73_m2} Normal >60 [facility] Comment on above: Order Comment: No: D o not add to previous draw Performed By: #### 3 176, 57655 #### [facility] [address] [place] [id number], [facility] GFR/1.73 sq M predicted among non-blacks MDRD (S/P/Bld) [Vol rate/Area] 57 ml/min/1.73sq m Abnormal >60 [facility] Comment on above: Order Comment: No: D o not add to previous draw Performed By: #### 3 690, 34128 #### [facility] [address] [place] [address], [facility] Glucose [Mass/Vol] 96 mg/dL Normal 70-100 [facility] Comment on above: Order Comment: No: D o not add to previous draw Performed By: #### 3 690, 21875 #### [facility] [address] [place] [address], [facility] Potassium [Moles/Vol] 4.1 mmol/L Normal 3.5-5.1 [facility] Comment on above: Order Comment: No: D o not add to previous draw Performed By: #### 3 690, 25132 #### [facility] [address] [place] [address], [facility] Sodium [Moles/Vol] 138 mmol/L Normal 136-145 [facility] Comment on above: Order Comment: No: D o not add to previous draw Performed By: #### 3 690, 46954 #### [facility] [address] [place] [address], [facility] Urea nitrogen [Mass/Vol] 16 mg/dL Normal 7-25 [facility] Comment on above: Order Comment: No: D o not add to previous draw Performed By: #### 3 690, 21373 #### [facility] [address] [place] [address], [facility] CBC W/DIFFon 08-13-2019 ABS BASOPHILS 0.0 10*3/uL Normal 0.0-0.2 [facility] Comment on above: Order Comment: No: D o not add to previous draw Performed By: #### 5 0103 #### [facility] [address] [place] [address], [facility] ABS IMM GRANS 0.0 10*3/uL Normal 0.0-0.2 [facility] Comment on above: Order Comment: No: D o not add to previous draw Performed By: #### 5 0103 #### [facility] [address] [place] [address], [facility] ABS NEUTROPHILS 4.0 10*3/uL Normal 1.6-7.6 [facility] Comment on above: Order Comment: No: D o not add to previous draw Performed By: #### 5 0103 #### [facility] [address] [place] [address], [facility] Basophils/100 WBC (Bld) 0.5 % Normal 0.0-1.0 [facility] Comment on above: Order Comment: No: D o not add to previous draw Performed By: #### 5 0103 #### [facility] [address] [facility] [place] [address], [facility] Eosinophils (Bld) [#/Vol] 0.2 10*3/uL Normal 0.0-0.5 [facility] Comment on above: Order Comment: No: D o not add to previous draw Performed By: #### 5 0103 #### [facility] [address] [facility] [place] [address], [facility] Eosinophils/100 WBC (Bld) 3.3 % Normal 0.0-6.0 [facility] Comment on above: Order Comment: No: D o not add to previous draw Performed By: #### 5 0103 #### [facility] [address] [place] [address], [facility] Erythrocyte distribution width (RBC) [Ratio] 12.7 % Normal 11.5-15.0 [facility] Comment on above: Order Comment: No: D o not add to previous draw Performed By: #### 5 0103 #### [facility] [address] [place] [address], [facility] Hematocrit (Bld) [Volume fraction] 33.4 % Low 36.0-45.0 [facility] Comment on above: Order Comment: No: D o not add to previous draw Performed By: #### 5 3 #### [facility] [address] [place] [id number], [facility] Hemoglobin (Bld) [Mass/Vol] 10.5 g/dL Low 12.0-15.0 [facility] Comment on above: Order Comment: No: D o not add to previous draw Performed By: #### 5 3 #### [facility] [address] [place] [address], [facility] IMMATURE GRANS 0.2 % Normal 0.0-1.0 [facility] Comment on above: Order Comment: No: D o not add to previous draw Performed By: #### 5 3 #### [facility] [address] [facility] [place] [address], [facility] Lymphocytes (Bld) [#/Vol] 1.8 10*3/uL Normal 1.2-4.0 [facility] Comment on above: Order Comment: No: D o not add to previous draw Performed By: #### 5 3 #### [facility] [address] [facility] [place] [address], [facility] Lymphocytes/100 WBC (Bld) 28.2 % Normal 20.0-45.0 [facility] Comment on above: Order Comment: No: D o not add to previous draw Performed By: #### 5 3 #### [facility] [address] [place] [address], [facility] MCH (RBC) [Entitic mass] 28.9 pg Normal 27.0-33.0 [facility] Comment on above: Order Comment: No: D o not add to previous draw Performed By: #### 5 3 #### [facility] [address] [place] [id number], [facility] MCHC (RBC) [Mass/Vol] 31.4 g/dL Low 32.0-35.0 [facility] Comment on above: Order Comment: No: D o not add to previous draw Performed By: #### 5 0103 #### [facility] [address] [place] [id number], [facility] MCV (RBC) [Entitic vol] 92.0 fL Normal 82.0-98.0 [facility] Comment on above: Order Comment: No: D o not add to previous draw Performed By: #### 5 0103 #### [facility] [address] [place] [address], [facility] Monocytes (Bld) [#/Vol] 0.4 10*3/uL Normal 0.1-1.0 [facility] Comment on above: Order Comment: No: D o not add to previous draw Performed By: #### 5 0103 #### [facility] [address] [place] [id number], [facility] MONOS 6.2 % Normal 5.0-12.0 [facility] Comment on above: Order Comment: No: D o not add to previous draw Performed By: #### 5 3 #### [facility] [address] [facility] [place] [address], [facility] Neutrophils/100 WBC (Bld) 61.6 % Normal 40.0-72.0 [facility] Comment on above: Order Comment: No: D o not add to previous draw Performed By: #### 5 0103 #### [facility] [address] [place] [address], [facility] Nucleated RBC/100 WBC (Bld) [Ratio] 0 % Normal 0-0 [facility] Comment on above: Order Comment: No: D o not add to previous draw Performed By: #### 5 0103 #### [facility] [address] [facility] [place] [address], [facility] PLAT CNT 382 10*3/uL Normal 150-400 [facility] Comment on above: Order Comment: No: D o not add to previous draw Performed By: #### 5 0103 #### [facility] [address] [place] [address], [facility] RBC (Bld) [#/Vol] 3.63 10*6/uL Low 3.80-5.00 [facility] Comment on above: Order Comment: No: D o not add to previous draw Performed By: #### 5 0103 #### [facility] [address] [facility] [place] [address], [facility] WBC (Bld) [#/Vol] 6.45 10*3/uL Normal 4.00-10.60 [facility] Comment on above: Order Comment: No: D o not add to previous draw Performed By: #### 5 0103 #### [facility] [address] [facility] [place] [address], [facility] LIPASE BLOODon 08-13-2019 Lipase [Catalytic activity/Vol] 13 Units/L Normal 11-82 [facility] Comment on above: Performed By: #### 3 6901, 20973 #### [facility] [address] [facility] [place] [address], [facility] Vital Signs Date Time Vital Sign Value Performing Clinician Facility 07-22-2023 13:19-0500 Body height 170.[address] Work Phone: [facility] 07-22-2023 13:19-0500 Body weight 83.[address] Work Phone: [facility] 07-14-2023 11:40-0500 Diastolic blood pressure 95 mm[Hg] Marques Bradley MD Work Phone: [facility] 07-14-2023 11:40-0500 Heart rate 56 /min Marques Bradley MD Work Phone: [facility] 07-14-2023 11:40-0500 Respiratory rate 16 /min Marques Bradley MD Work Phone: [facility] 07-14-2023 11:40-0500 SaO2% (BldA) [Mass fraction] 97 % Marques Bradley MD Work Phone: [facility] 07-14-2023 11:40-0500 Systolic blood pressure 158 mm[Hg] Marques Bradley MD Work Phone: [facility] 07-14-2023 11:10-0500 Body temperature 97.2 [degF] Marques Bradley MD Work Phone: [facility] 07-14-2023 08:34-0500 Body height 170.2 cm Marques Bradley MD Work Phone: [facility] 07-14-2023 08:34-0500 Body weight 88 kg Marques Bradley MD Work Phone: [facility] 04-21-2023 09:30-0400 Body height 170.18 cm Renny Gan Other [facility] Other 04-21-2023 09:30-0400 Body mass index (BMI) [Ratio] 31.21 kg/m2 Renny Gan Other [facility] Other 04-21-2023 09:30-0400 Body weight 90.4 kg Renny Gan Other [facility] Other 04-21-2023 09:30-0400 Diastolic blood pressure 78 mm[Hg] Renny Gan Other [facility] Other 04-21-2023 09:30-0400 Systolic blood pressure 130 mm[Hg] Renny Gan Other [facility] Other 03-23-2023 07:33-0400 Diastolic blood pressure 80 mm[Hg] [employer] Judi Mikael Work Phone: [facility] 03-23-2023 07:33-0400 Heart rate 81 /min [employer] Judi Mikael Work Phone: [facility] 03-23-2023 07:33-0400 Respiratory rate 14 /min [employer] Judijose manuel Ugaldemer Work Phone: [facility] 03-23-2023 07:33-0400 SaO2% (BldA) [Mass fraction] 95 % [employer] Judi Ugaldemer Work Phone: [facility] 03-23-2023 07:33-0400 Systolic blood pressure 171 mm[Hg] [employer] Judijose manuel Uglademer Work Phone: [facility] 03-23-2023 06:20-0400 Body height 170.18 cm [employer] Judi Youssef Work Phone: [facility] 03-23-2023 06:20-0400 Body temperature 97.4 [degF] [employer] Judi Ugaldemer Work Phone: [facility] 03-23-2023 06:20-0400 Body weight 90 kg [employer] Judi Ugaldemer Work Phone: [facility] 02-19-2023 00:53-0400 Body temperature 96.98 [degF] Kaylinn Dokken [facility] 02-19-2023 00:53-0400 Diastolic blood pressure 99 mm[Hg] Kaylinn Dokken [facility] 02-19-2023 00:53-0400 Heart rate 75 /min Kaylinn Dokken [facility] 02-19-2023 00:53-0400 Respiratory rate 16 /min Kaylinn Dokken [facility] 02-19-2023 00:53-0400 SaO2% (BldA) [Mass fraction] 98 % Zabrina Santanaen [facility] 02-19-2023 00:53-0400 Systolic blood pressure 153 mm[Hg] Zabrina Santanaen [facility] 02-15-2023 10:33-0400 Diastolic blood pressure 89 mm[Hg] [employer] Judi Mikael Work Phone: [facility] 02-15-2023 10:33-0400 SaO2% (BldA) [Mass fraction] 100 % [employer] Judi Mikael Work Phone: [facility] 02-15-2023 10:33-0400 Systolic blood pressure 149 mm[Hg] [employer] Judi Mikael Work Phone: [facility] 02-15-2023 10:00-0400 Heart rate 83 /min [employer] Judi Mikael Work Phone: [facility] 02-15-2023 10:00-0400 Respiratory rate 16 /min [employer] Judi Mikael Work Phone: [facility] 02-15-2023 08:06-0400 Body height 170.18 cm [employer] Judi Mikael Work Phone: [facility] 02-15-2023 08:06-0400 Body temperature 97.6 [degF] [employer] Judi Mikael Work Phone: [facility] 02-15-2023 08:06-0400 Body weight 89.2 kg [employer] Judi Mikael Work Phone: [facility] 10-26-2022 08:03-0500 Diastolic blood pressure 87 mm[Hg] [employer] Judi Mikael Work Phone: [facility] 10-26-2022 08:03-0500 Heart rate 70 /min [employer] Judi Mikael Work Phone: [facility] 10-26-2022 08:03-0500 Respiratory rate 18 /min [employer] Judi Youssef Work Phone: [facility] 10-26-2022 08:03-0500 SaO2% (BldA) [Mass fraction] 98 % [employer] Judi Youssef Work Phone: [facility] 10-26-2022 08:03-0500 Systolic blood pressure 161 mm[Hg] [employer] Judi Youssef Work Phone: [facility] 10-26-2022 06:17-0500 Body height 170.18 cm [employer] Judi Youssef Work Phone: [facility] 10-26-2022 06:17-0500 Body temperature 97.2 [degF] [employer] Judi Youssef Work Phone: [facility] 10-26-2022 06:17-0500 Body weight 88.9 kg [employer] Judi Youssef Work Phone: [facility] 07-22-2022 14:34-0500 Diastolic blood pressure 83 mm[Hg] Ospina SALAM [facility] 07-22-2022 14:34-0500 Mean blood pressure 101 mm[Hg] Ospina SALAM [facility] 07-22-2022 14:34-0500 Systolic blood pressure 136 mm[Hg] Ospina SALAM [facility] 07-22-2022 14:30-0500 Blood Pressure Location Ospina SALAM [facility] 07-22-2022 14:30-0500 Diastolic blood pressure 89 mm[Hg] Ospina SALAM [facility] 07-22-2022 14:30-0500 Heart rate 62 /min Ospina SALAM [facility] 07-22-2022 14:30-0500 Respiratory rate 16 /min Anai ROTHMANAM [facility] 07-22-2022 14:30-0500 SaO2% (BldA) [Mass fraction] 98 % Ospina SALAM [facility] 07-22-2022 14:30-0500 Systolic blood pressure 141 mm[Hg] Anai ROTHMANAM [facility] 04-14-2022 14:50-0400 Blood Pressure Location Monique Marquez [facility] 04-14-2022 14:50-0400 Body temperature 97.16 [degF] Monique Reddymetz [facility] 04-14-2022 14:50-0400 Diastolic blood pressure 86 mm[Hg] Monique Reddymetz [facility] 04-14-2022 14:50-0400 Heart rate 72 /min Monique Reddymetz [facility] 04-14-2022 14:50-0400 SaO2% (BldA) [Mass fraction] 97 % Monique Reddymetz [facility] 04-14-2022 14:50-0400 Systolic blood pressure 131 mm[Hg] Monique Jimmy [facility] 01-28-2022 13:36-0400 Blood Pressure Location Moniquejuan luis ReddyJimmy [facility] 01-28-2022 13:36-0400 Body temperature 97.52 [degF] Monique Marquez [facility] 01-28-2022 13:36-0400 Diastolic blood pressure 85 mm[Hg] Monique Reddymetz [facility] 01-28-2022 13:36-0400 Heart rate 73 /min Moniquejuan luis ReddyJimmy [facility] 01-28-2022 13:36-0400 SaO2% (BldA) [Mass fraction] 96 % Monique Marquez [facility] 01-28-2022 13:36-0400 Systolic blood pressure 122 mm[Hg] Monique Reddymetz [facility] 01-11-2022 10:15-0400 Blood Pressure Location Ospina SALAM [facility] 01-11-2022 10:15-0400 Diastolic blood pressure 106 mm[Hg] Ospina SALAM [facility] 01-11-2022 10:15-0400 Heart rate 70 /min Ospina SALAM [facility] 01-11-2022 10:15-0400 Respiratory rate 28 /min Ospina SALAM [facility] 01-11-2022 10:15-0400 SaO2% (BldA) [Mass fraction] 99 % Ospina SALAM [facility] 01-11-2022 10:15-0400 Systolic blood pressure 137 mm[Hg] Ospina SALAM [facility] 01-11-2022 10:05-0400 Blood Pressure Location Ospina SALAM [facility] 01-11-2022 10:05-0400 Diastolic blood pressure 74 mm[Hg] Ospina SALAM [facility] 01-11-2022 10:05-0400 Heart rate 67 /min Ospina SALAM [facility] 01-11-2022 10:05-0400 Respiratory rate 14 /min Ospina SALAM [facility] 01-11-2022 10:05-0400 SaO2% (BldA) [Mass fraction] 97 % Ospina SALAM [facility] 01-11-2022 10:05-0400 Systolic blood pressure 128 mm[Hg] Ospina SALAM [facility] 01-11-2022 10:00-0400 Blood Pressure Location Ospina SALAM [facility] 01-11-2022 10:00-0400 Diastolic blood pressure 79 mm[Hg] Ospina SALAM [facility] 01-11-2022 10:00-0400 Heart rate 66 /min Ospina SALAM [facility] 01-11-2022 10:00-0400 Respiratory rate 16 /min Ospina SALAM [facility] 01-11-2022 10:00-0400 SaO2% (BldA) [Mass fraction] 98 % Ospina SALAM [facility] 01-11-2022 10:00-0400 Systolic blood pressure 134 mm[Hg] Ospina SALAM [facility] 01-11-2022 09:50-0400 Body temperature 97.52 [degF] Ospina SALAM [facility] 01-11-2022 09:45-0400 Respiratory rate 15 /min Ospina SALAM [facility] 01-11-2022 09:18-0400 Body temperature 97.34 [degF] Ospina SALAM [facility] 01-11-2022 09:18-0400 Respiratory rate 20 /min Ospina SALAM [facility] Encounters Encounter Date Encounter Type Care Provider Facility Start: 08-25-2023 End: 08-25-2023 ambulatory JOEL PANCHAL [facility] Facility:[facility] Start: 07-29-2023 Orders Only Evelyn Black RN [facility] eral Surgery Comment on above: Gastroparesis (Prima ry Dx) Start: 07-22-2023 End: 07-22-2023 ambulatory MARQUES BRADLEY Facility:[facility] Start: 07-22-2023 Telephone encounter Evelyn Black RN General Surgery Start: 07-22-2023 End: 07-22-2023 Nutrition therapy Melissa Montalvo RD Work Phone: General Surgery Comment on above: Gastroparesis (Prima ry Dx); Malnutrition of moderate degree (HCC); Gastro-esophageal reflux disease without esophagitis; Overweight (BMI 25.0-29.9); Dietary counseling and surveillance Start: 07-22-2023 End: 07-22-2023 Telemedicine consultation with patient Melissa Montalvo RD Work Phone: [facility] Start: 07-14-2023 End: 07-14-2023 ambulatory MARQUES BRADLEY Facility:[facility] Start: 07-14-2023 End: 07-14-2023 Subsequent hospital visit by physician Marques Bradley MD Work Phone: Gastroenterology Comment on above: Dysphagia, unspecifi ed type [R13.10] Start: 07-13-2023 End: 07-13-2023 ambulatory MARQUES BALLMADAN Facility:[facility] Start: 06-06-2023 End: 06-07-2023 ambulatory Samuel Estrella Facility:[facility] Start: 05-27-2023 Telephone encounter Evelyn Black RN General Surgery Comment on above: Results Start: 05-26-2023 End: 05-26-2023 ambulatory MARQUES Jorge MIRNA Facility:[facility] Start: 05-25-2023 End: 05-25-2023 ambulatory JOEL PANCHAL [facility] Facility:[facility] Start: 05-25-2023 End: 05-25-2023 Nursing evaluation of patient and report Nurse [facility] Work Phone: Gastroenterology Comment on above: Nausea Start: 05-16-2023 Orders Only Evelyn Black RN Gen eral Surgery Comment on above: Nausea (Primary Dx); Dysphagia, unspecified type Start: 05-06-2023 End: 05-07-2023 ambulatory MARQUES BRADLEY Facility:[facility] Start: 05-02-2023 Telephone encounter Evelyn Black RN General Surgery Start: 04-26-2023 Telephone encounter Evelyn Black RN General Surgery Start: 04-21-2023 End: 04-21-2023 ambulatory Renny Gan Other [facility] Other Start: 04-21-2023 Office outpatient vi sit 15 minutes Renny TOUSSAINT Gastroenterology Start: 04-18-2023 Telephone encounter Evelyn Black RN General Surgery Comment on above: Rn Social Services - O ther Start: 04-07-2023 Telephone encounter Guillermo Martinez DO Work Phone: Gastroenterology Comment on above: Appointment Start: 04-05-2023 End: 04-05-2023 ambulatory Imad Asaad Other [facility] Other Start: 04-05-2023 Telephone encounter Imad Asaad [facility] Start: 03-29-2023 ambulatory Facility:[facility] Start: 03-26-2023 ambulatory Facility:[id number] Start: 03-26-2023 End: 03-31-2023 Evaluation and management of inpatient Renny Gan Facility:[facility] Start: 03-26-2023 ambulatory Facility:[id number] Start: 03-24-2023 End: 03-24-2023 ambulatory Imad Asaad Other [facility] Other Start: 03-24-2023 Telephone encounter Imad Asaad [facility] Start: 03-23-2023 End: 03-23-2023 Emergency department patient visit Judi Youssef Facility:[facility] Start: 03-23-2023 End: 03-23-2023 Emergency department patient visit [employer] Judi Youssef Work Phone: [facility] Work Phone: Start: 03-22-2023 End: 03-22-2023 ambulatory Imad Asaad Other [facility] Other Start: 03-22-2023 Telephone encounter Imad Asaad [facility] Start: 03-09-2023 End: 03-09-2023 ambulatory Imad Asaad Other [facility] Other Start: 03-09-2023 Telephone encounter Imad Asaad [facility] Start: 03-01-2023 End: 03-01-2023 ambulatory Imad Asaad Other [facility] Other Start: 03-01-2023 Telephone encounter Imad Asaad [facility] Start: 02-19-2023 End: 02-19-2023 Emergency department patient visit Zabrina Patton Facility:[facility] Start: 02-19-2023 End: 02-19-2023 Emergency department patient visit Zabrina Patton [facility] Start: 02-15-2023 End: 02-15-2023 Emergency department patient visit OPTICAL MECHANIC-C Judi Youssef Work Phone: [facility] Work Phone: Start: 11-30-2022 End: 12-01-2022 ambulatory JUDI YOUSSEF Facility:[facility] Start: 11-27-2022 End: 11-28-2022 ambulatory JUDI YOUSSEF Facility:[facility] Start: 11-26-2022 End: 11-26-2022 ambulatory Imad Asaad Other [facility] [employer] Other Start: 11-26-2022 Telephone encounter Imad Asaad [facility] Start: 11-04-2022 End: 11-04-2022 ambulatory Judi Youssef Facility:[facility] Start: 11-04-2022 End: 11-04-2022 Admission to same day surgery center [employer] Judi Youssef Work Phone: [facility]-CT Scan Main [place] Work Phone: Start: 11-04-2022 End: 11-04-2022 ambulatory [employer]CHANIC[employer]C Judi Youssef Work Phone: [facility] Work Phone: Start: 11-01-2022 End: 11-02-2022 ambulatory JUDI YOUSSEF Facility:[facility] Start: 10-26-2022 End: 10-26-2022 Emergency department patient visit Judi Youssef Facility:[facility] Start: 10-26-2022 End: 10-26-2022 Emergency department patient visit [employer] MECHANIC-C Judi Youssef Work Phone: [facility] Work Phone: Start: 09-23-2022 ambulatory Monique Enrique ty:Lilo GARCIA Start: 09-21-2022 End: 09-21-2022 ambulatory JUDI YOUSSEF Facility:[facility] Start: 09-18-2022 End: 09-18-2022 ambulatory BALTAZAR GEORGES . Facility:[facility] Start: 09-14-2022 End: 09-14-2022 ambulatory EUN WILSON . Facility:[facility] Start: 09-07-2022 End: 09-07-2022 ambulatory Jennie Curtisleo Other [facility] [employer] Other Start: 09-07-2022 Telephone encounter Imleo Ayon [facility] [employer] Start: 09-06-2022 End: 09-07-2022 ambulatory JUDI YOUSSEF Facility:[facility] Start: 08-20-2022 End: 08-20-2022 ambulatory BALTAZAR GEORGES . Facility:[facility] Start: 08-17-2022 End: 08-18-2022 ambulatory JUDI YOUSSEF Facility:[facility] Start: 08-11-2022 End: 08-12-2022 ambulatory JUDI YOUSSEF Facility:[facility] Start: 08-08-2022 End: 08-08-2022 ambulatory KATHRIN VANCE Facility:[facility] Start: 07-22-2022 End: 07-23-2022 ambulatory [facility] Facility:[facility] Start: 07-22-2022 End: 07-22-2022 Patient encounter procedure [facility] Start: 07-21-2022 End: 07-21-[address] NORA WINN Facility:[facility]1 Start: 07-15-2022 ambulatory JUDI YOUSSEF Facility: [facility] Start: 07-12-2022 Encounter for genera l adult medical examination without abnormal findings JUDI YOUSSEF [facility] Start: 07-08-2022 End: 07-09-2022 ambulatory [...] End: 04-29-2022 Lab Drop off Anai REAGAN [facility] Start: 04-14-2022 End: 04-14-2022 Patient encounter procedure Monique Marquez [facility] Start: 03-27-2022 End: 03-30-2022 Evaluation and management of inpatient SHAIKH Juan Luis DAVIS Facility:[facility]1 Start: 03-01-2022 End: 03-01-2022 Patient encounter procedure Monique Marquez [facility] Start: 02-02-2022 End: 02-02-2022 ambulatory BALTAZAR GEORGES . Facility:[facility] Start: 01-28-2022 End: 01-28-2022 Patient encounter procedure Monique Marquez [facility] Start: 01-11-2022 End: 01-11-2022 Patient encounter procedure Anai REAGAN [facility] Start: 12-24-2021 End: 12-24-2021 Patient encounter procedure JHOANA MELGOZA [facility] Start: 08-13-2019 End: 08-16-2019 Evaluation and management of inpatient LEONA MORTENSEN Facility:[facility] Procedures Date Procedure Procedure Detail Performing Clinician Start: 07-14-2023 Esophagoscp rig transoral hypopharynx crv esoph Evelyn Black RN Start: 05-25-2023 Esophageal motility study w/interp&rpt Evelyn Black RN Start: 03-23-2023 Computed tomography of abdomen and pelvis with contrast [employer]CHANIC-Paula Youssef Work Phone: Start: 02-15-2023 Computed tomography of abdomen and pelvis with contrast [employer] Judi Youssef Work Phone: Start: 11-04-2022 CT of small intestine [employer] Judi Youssef Work Phone: Start: 10-26-2022 Computed tomography of abdomen and pelvis with contrast [employer] Judi Youssef Work Phone: Start: 01-11-2022 Esophagogastroduodenoscopy [...] MELGOZA Comment on above: Dr. Mortensen in [place]. Hernia repair JHOANA MELGOZA Hysterectomy JHOANA MELGOZA Plan of Treatment Date Care Activity Detail Author Start: 05-06-2023 Covid-19 Vaccine () Covid-19 Vaccine () [facility] Start: 05-06-2023 Influenza vaccination [facility] Start: 09-05-2022 DEPRESSION ASSESSMENT DEPRESSION ASS ESSMENT [facility] Start: 01-01-2022 COVID-19 VACCINE (4 - Pfizer series) COVID-19 VACCINE (4 - Pfizer series) [facility] Start: 2020 SHINGRIX VACCINE (1 of 2) SHINGRIX VACCINE (1 of 2) [facility] Start: 2015 COLOGUARD (FIT-DNA) COLOGUARD (FIT-D NA) [facility] Start: 2015 Colonoscopy COLONOSCOPY [facility] Start: 2015 COLORECTAL CANCER SCREENING COLORECTAL CANCER SCREENING [facility] Start: [address] COLONOGRAPHY [facility] Start: 2015 DIABET[facility]EN [facility] Start: 2015 Diabetes Screening Diabetes Screenin g [facility] Start: 2015 FECAL OCCULT BLOOD FECAL OCCULT BLOO D [facility] Start: 2015 Lipid 1996 panel - S cristine or Plasma Lipid Screening [facility] Start: 2015 LIPID SCREEN LIPID SCREEN [facility] Start: 2015 SIGMOIDOSCOPY SIGMOIDOSCOPY [facility] Start: 2010 Mammography [facility] Start: 2000 HPV TESTING HPV TESTING [facility] Start: 1991 PAP TESTING PAP TESTING [facility] Start: 1989 Urine microalbumin profile [facility] Start: 1988 HEPATITIS C SCREENING HEPATITIS C SC REENING [facility] Start: 1988 HIV SCREENING HIV SCREENING [facility] Start: 1970 COVID-19 VACCINE (#1) COVID-19 VACCI NE (#1) [facility] Start: 1970 HEPATITIS B (1 of 3 - 3-dose series) HEPATITIS B (1 of 3 - 3-dose series) [facility] Start: 1970 Hepatitis B Vaccine (1 of 3 - 3-dose series) Hepatitis B Vaccine (1 of 3 - 3-dose series) [facility] End: 07-29-2024 EGD - THERAPEUTIC, EUS, OR TUBE INTERVENTIONS EGD - THERAPEUTIC, EUS, OR TUBE INTERVENTIONS Endoscopy Routine Gastroparesis 1 Occurrences starting 07/29/2023 until 07/29/2024 [facility] Work Phone: Comment on above: 1 Occurrences starti ng 07/29/2023 until 07/29/2024 End: 05-16-2024 Esophageal motility study w/interp&rpt MANOMETRY ESOPHAGEAL Endoscopy Routine Nausea 1 Occurrences starting 05/16/2023 until 05/16/2024 [facility] Work Phone: Comment on above: 1 Occurrences starti ng 05/16/2023 until 05/16/2024 Esophageal motility study w/interp&rpt MANOMETRY ESOPHAGEAL Endoscopy Routine Nausea 05/25/2023 [facility] Work Phone: End: 06-14-2024 Gastric emptying imaging study NM GASTRIC EMPTYING SOLID Radiology Routine Nausea 1 Occurrences starting 05/16/2023 until 06/14/2024 [facility] Work Phone: Comment on above: 1 Occurrences starti ng 05/16/2023 until 06/14/2024 Patient Education [facility] Work Phone: Patient referral [facility] Work Phone: SURGICAL PATHOLOGY [facility] Work Phone: Comment on above: Release Upon Orderin g for 1 Occurrences starting 07/14/2023, 1 completed [facility] Immunizations Immunization Date Immunization Notes Care Provider [facility] 06-09-2022 influenza virus vaccine, unspecified formulation Nurse 2 Work Phone: [facility] 03-18-2022 SARS-CoV-2 mRNA (udpnlxtrojd-mptt-zdb jett) vaccine [employer] [facility] 11-06-2021 SARS-CoV-2 (COVID-19 ) mRNA BNT-162b2 vax [employer] SALAM [facility] 05-06-2021 influenza virus vaccine, unspecified formulation JHOANA MELGOZA [facility] 02-26-2021 SARS-CoV-2 (COVID-19 ) mRNA BNT-162b2 vax JHOANA MELGOZA [facility] 02-05-2021 SARS-CoV-2 (COVID-19 ) mRNA BNT-162b2 vax Anai ERAGAN [facility] Comment on above: Result Comment: 2021: [id number] NEGATED: Highlighted row has not occurred!04-14-2022 influenza virus vaccine, unspecified formulation Monique Marquez [facility] Payers Date Payer Category Payer Unknown RINA MARTINEZ SS PPO [id number] 2022-Present [phone] [address] [place] [address] PPO [id number] 2018 Private Health Insurance [id number] 2018 Private Health Insurance [facility] CHOICE PLUS [id number] 2018-Present [phone] [address] [place] [address] HMO [id number] 1970 Unknown [id number] 2.16.840.1.707715.3.579.2 .647 1970 Unknown [id number] 2.16.840.1.394485.3.579.2 .593 1970 Unknown [id number] 2.16.840.1.617458.3.579.2 .593 1970 Unknown [id number] 2.16.840.1.396458.3.579.2 .593 1970 Unknown [id number] 2.16.840.1.213875.3.579.2 .593 1970 Unknown [id number] 2.16.840.1.141815.3.579.2 .593 1970 Unknown [id number] 2.16.840.1.365764.3.579.2 .593 1970 Unknown [id number] 2.16.840.1.813903.3.579.2 .593 1970 Unknown [id number] 2.16.840.1.802818.3.579.2 .593 1970 Unknown [id number] 2.16.840.1.313406.3.579.2 .593 1970 Unknown [id number] 2.16.840.1.102071.3.579.2 .593 1970 Unknown [id number] 2.16.840.1.590359.3.579.2 .593 1970 Unknown [id number] 2.16.840.1.755137.3.579.2 .593 1970 Unknown [id number] 2.16.840.1.873568.3.579.2 .593 1970 Unknown [id number] 2.16.840.1.788351.3.579.2 .593 1970 Unknown [id number] 2.16.840.1.812234.3.579.2 .593 1970 Unknown [id number] 2.16.840.1.776530.3.579.2 .593 1970 Unknown [id number] 2.16.840.1.791399.3.579.2 .593 1970 Unknown [id number] 2.16.840.1.653384.3.579.2 .593 1970 Unknown [id number] 2.16.840.1.670250.3.579.2 .593 1970 Unknown [id number] 2.16.840.1.310317.3.579.2 .593 1970 Unknown [id number] 2.16.840.1.293471.3.579.2 .356 1970 Unknown [id number] 2.16.840.1.064686.3.579.2 .356 1970 Unknown [id number] 2.16.840.1.857478.3.579.2 .727 1970 Unknown [id number] 2.16.840.1.591569.3.579.2 .727 1970 Unknown [id number] 2.16.840.1.304382.3.579.2 .727 1970 Unknown [id number] 2.16.840.1.694764.3.579.2 .727 1959 Medicaid [id number] 1959 Self-pay [id number] 1959 Unknown [id number] 1959 Unknown [id number] Medicare Medicare [id number] Unknown [id number] 2.16.840.1.069884.3.579.2 .531 Unknown [id number] 2.16.840.1.622813.3.579.2 .531 Unknown [id number] 2.16.840.1.968916.3.579.2 .531 Unknown [id number] 2.16.840.1.536273.3.579.2 .531 Unknown [id number] 2.16.840.1.942349.3.579.2 .531 Worker's Compensation Industrial Self Ins [facility] [id number] Social History Date Type Detail Facility Start: 12-03-2021 End: 05-06-2023 Tobacco smoking status Ex-smoker (finding) [facility] Start: 08-12-2020 End: 05-06-2023 Sex Assigned At Female [facility] Tobacco smoking status Never [facility] Start: 1970 Sex Assigned At Female [facility] End: 09-05-2011 History of tobacco use Current smoker [facility] Work Phone: End: 09-05-2011 History of tobacco use Cigarette Smoker [facility] Work Phone: Start: 04-28-2018 End: 05-06-2023 Tobacco use and exposure Smokeless tobacco non-user [facility] Work Phone: Start: 04-28-2018 End: 05-06-2023 Alcohol intake Current drinker of alcohol (finding) [facility] Start: 08-12-2020 End: 05-06-2023 History of Social function [facility] Start: 04-28-2018 End: 05-06-2023 Tobacco Comment still smokes [facility] Start: 04-28-2018 [facility] Start: 1970 Sex Assigned At Not on file [facility] Start: 07-14-2023 Alcohol intake Ex-drinker (finding) [facility] Functional Status Date Assessment Result Facility 02-19-2023 Functional Status N/A [facility] 07-22-2022 Functional Status N/A [facility] 04-14-2022 Functional Status N/A [facility] Clinical Notes 12-02-2021 to 08-25-2023 Evelyn Black RN - 07/29/2023 11:17 AM ESTPatient InstructionsTelephone Encounter - Evelyn Black RN - 07/22/2023 3:[address] - 07/22/2023 1:15 PM EST Note Date & Type Note Facility 08-25-2023 Note HNO ID: [id number] Author: Ellis Mayberry, DO Service: ? Author [...] August 25, 2023 TIME: 2:59 PM CSN: [id number] [facility] 08-25-2023 Note Q3 Patient Name: Constantino Cardoso Procedure Date: 08/25/2023 2:38 PM Date of : 1970 Admit Type: Outpatient Age: 53 Gender: Female Note Status: Finalized Attending MD: Marques Bradley MD, [id number] Procedure: Upper GI endoscopy Indications: Gastroparesis- for GPOEM Providers: Marques Bradley MD, [facility] (Fellow) Patient Profile: This is a 53 [...] the patient. Procedure Code(s): --- Professional --- 17706 Diagnosis Code(s): --- Professional --- K44.9 Z98.890 CPT copyright 2020 [employer]. All rights reserved. Attending Participation: I personally performed the entire procedure. Scope In: 2:59:10 PM Scope Out: 3:37:20 PM MD Marques Rainey MD 08/25/2023 3:41:00 PM This report has been signed electronically by Marques Bradley MD Number of Addenda: 0 Note Initiated On: 08/25/2023 2:38 PM [facility] 07-29-2023 Note HNO ID: [id number] Author: Evelyn Black RN Service: ? Author Type: Registered Nurse Type: Progress Notes Filed: 07/29/2023 11:18 AM Note Text: e [facility] 07-29-2023 History of Present illness Narrative e documented in this encounter [facility] 07-22-[address] [...] High Protein, Atkins, Boost Glucose Control, Owyn, [place] Breakfast Essentials Light Start mixed with Fairlife [...] calories, no carbonation, no caffeine. Protein juarez (hejiqld1e, Isopure, Gatorade protein), electrolyte drinks (Gatorade or Powerade zero, sugar free liquid IV or Drip Drop), sugar free jello and sugar free popsicles are also acceptable. Nutrition Monitoring & Evaluation: increase PO intake >75% of estimated needs, weight check and patient update Need for Follow up: based on surgery status documented in this encounter [facility] 07-22-2023 Note HNO ID: [id number] Author: Melissa Montalvo RD Service: ? Author Type: Registered Dietitian Type: Progress Notes Filed: 07/22/2023 4:06 PM Note Text: The [facility] Nutrition Therapy: Virtual Consult - Initial Assessment I have communicated my name and active licensure. The patient?s identity and physical location were verified at the time of this visit. Either the patient or their legal account maintenance representative has been informed of the risks [...] High Protein, Atkins, Boost Glucose Control, Owyn, [place] Breakfast Essentials Light Start mixed with Fairlife [...] calories, no carbonation, no caffeine. Protein juarez (uajwfpo0i, Isopure, Gatorade protein), electrolyte drinks (Gatorade or [...] active for work on her feet as [employer], however no regular exercise at this time due to not feeling well enough and little energy. [place] body weight: 159 lbs. 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 [facility] 07-22-2023 Miscellaneous Notes BMI SPECIALTY CARE COORDINATION TELEPHONE ENCOUNTER Pt was seen in clinic and an EGD was ordered and completed. Recommendation was a GPOEM. Will consult with surgeon next week regarding next POC for pt. Pt VU. documented in this encounter [facility] 07-22-2023 History of Present illness Narrative The [facility] Nutrition Therapy: Virtual Consult - Initial Assessment I have communicated my name and active licensure. The patient s identity and physical location were verified at the time of this visit. Either the patient or their legal account maintenance representative has been informed of the risks [...] High Protein, Atkins, Boost Glucose Control, Owyn, [place] Breakfast Essentials Light Start mixed with Fairlife fat free or 1% milk. -Check www.bariatricfusion.com or www.Movable.com for additional options. Take small bites, eat slowly, chew food well, and always eat protein first. Separate eating and drinking by 30 min before and after. Aim for >64 oz water/day. Take small sips and avoid straws. Liquids should be sugar-free, no calories, no carbonation, no caffeine. Protein juarez (sjucnjb7g, Isopure, Gatorade protein), electrolyte drinks (Gatorade or [...] active for work on her feet as [employer], however no regular exercise at this time due to not feeling well enough and little energy. [place] body weight: 159 lbs. 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 Procedure Code(s): --- Professional --- 86663 Diagnosis Code(s): --- Professional --- K44.9 K31.89 Z98.890 R10.13 CPT copyright 2020 [employer]. All rights reserved. Attending Participation: I personally performed the entire procedure. Scope In: 10:40:19 AM Scope Out: 10:50:37 AM MD Marques Rainey MD 07/14/2023 10:53:09 AM This report has been signed electronically by Marques Bradley MD Number of Addenda: 0 Note Initiated On: 07/14/2023 10:24 AM [facility] 07-14-2023 Nurse Note 1121: Dr. Mehrdad [...] In Department: GASTROENTEROLOGY documented in this encounter [facility] 07-13-2023 Note HNO ID: [id number] Author: Brennen Shaw, PhD Service: ? Author Type: Physician Type: Progress Notes Filed: 07/19/2023 10:07 AM Note Text: [facility] BARIATRIC SURGERY BEHAVIORAL HEALTH EVALUATION DATE OF SERVICE: July 13, 2023 TIME OF SERVICE: 2:10 PM-3:29 PM COST CENTER: [facility] CPT CODE: - 38692 Brief Emotional/Behavioral Assessment with scoring/documentation - [id number] Virtual Psych Diagnostic Eval BILLING CODE: ENDO PSYL MAIN 35183/Marco DATE OF FIRST SERVICE THIS CYCLE: July 13, 2023 SESSION #: 1 BMI Surgical Pathway Visit type: Bariatric Surgeon Visit I have communicated my name and active licensure. The patient's identity and physical location were verified at the time of this visit. Either the patient or their legal account maintenance representative has been informed of the risks [...] other people who have undergone the procedure (intermediate Specific areas of understanding that should be [...] the binge episod (more content not included)... [facility] 05-27-2023 Miscellaneous Notes BMI SPECIALTY CARE COORDINATION TELEPHONE ENCOUNTER Pt contacted today regarding testing ordered when she had a consult with Dr Bradley. Manometry was normal and her GES was severely delayed. Reviewed results and will discuss with if POP is the next plan of care. Will update pt. Pt agreed with plan. documented in this encounter [facility] 05-26-2023 Note HNO ID: [id number] Author: Nabil Bell RT(R) Service: Nuclear Medicine [...] safety can be found using this link: [email or web address] SIGNATURE: RT Charmaine(R) PATIENT NAME: Constantino Cardoso DATE: May 26, 2023 TIME: 7:17 AM PAGER/CONTACT #: [facility] [facility] 05[facility]23 Note HNO ID: [id number] Author: Pedro Gonzalez LPN Service: ? Author Type: LICENSED NURSE Type: Progress Notes Filed: 05/25/2023 4:15 PM Note Text: Name: Constantino Cardoso [facility]#: [id number] Date: 05/25/2023 ESOPHAGEAL MANOMETRY TEST Indication: Nausea [...] the test without difficulty. .Pedro Gonzalez LPN [facility] 05-25-2023 History of Present illness Narrative Name: Constantino Cardoso [facility]#: [id number] Date: 05/25/2023 ESOPHAGEAL MANOMETRY TEST Indication: Nausea [...] .Pedro Gonzalez LPN documented in this encounter [facility] 05-16-2023 Miscellaneous Notes BMI SPECIALTY [...] a gastric bypass. documented in this encounter [facility] 05-06-2023 Note HNO ID: [id number] Author: Marques Bradley MD Service: ? Author [...] for internal providers or letter via the [place] [employer] for external providers. Chief Complaint: [...] Bradley MD Date: 05/12/2023 Time: 8:15 AM [facility] 05-02-2023 Miscellaneous Notes BMI SPECIALTY CARE COORDINATION TELEPHONE ENCOUNTER Chief complaint & duration dysphagia. Type of procedure: hernia repair hiatal with Dr. MORTENSEN in [place] February of 2019. Sending OP notes Nursing assessment (subjective/objective) . pain in chest area and getting worse Went to [facility] March 2023 who told her she needed a stent in her heart..but her c/o were difficulty swallowing and sent pt home and referred her to [facility] and was there in the hospital for [...] after records obtained documented in this encounter [facility] 04-26-2023 Miscellaneous Notes [facility] SPECIALTY CARE COORDINATION TELEPHONE ENCOUNTER Second attempt to contact this pt. Pt has upcoming information, and unable to complete any chart prep, history, symptoms, testing etc. LVM and call back number. documented in this encounter [facility] 04-21-2023 Evaluation note Encounter Date Diagnosis Assessment Notes Apr, Esophageal dysmotility (ICD-10 - K22.4) Apr, Esophageal spasm (ICD-10 - K22.4) Apr, Nausea & vomiting (ICD-10 - R11.2) Patinet reports that she still has nausea but no vomiting Patient reports that she is to see Dr. Strong at [facility] Patient is to start dicyclomine 20 mg 4 times daily sent to [facility] today RTO 6 weeks Apr, Dysphagia (ICD-10 - R13.10) [facility] Other 08-14-2023 Miscellaneous Notes* Telephone Encounter - Evelyn Black RN - 04/18/2023 2:13 PM EDT [facility] SPECIALTY CARE COORDINATION TELEPHONE ENCOUNTER Contacted pt regarding a referral from Dr Martinez's office. LVM and call back number. [facility] Miscellaneous Notes* Telephone Encounter - Yancy Lopez - 04/07/2023 1:15 PM EDT Referral rec'd documented [facility] Evaluation + Plan note Extracted [...] pain, # 20 tab(s), Refills(s) 0, Pharmacy: [facility]/pharmacy #[id number], 170, cm, 02/19/23 0:56:00 EDT, Height/Length Dosing, 90.2, kg, 02/19/23 0:56:00 EDT, Weight Dosing XR Elbow 3+ Views Right XR Wrist 3+ Views Right [facility]23 Hospital Discharge instructions Patient Education 02/19/2023 01:41:18 [...] are safe for you. General instructions Take yule-jjr-hbhuyhl and prescription medicines only as told by [...] provider. Document Revised: 12/29/2020 Document Reviewed: 12/29/2020 [employer] Patient Education 2022 [employer]. Follow Up Care 02/19/2023 00:51:16 With:JUDI YOUSSEF Address: [address] [place] [address] [phone] Business (1) When:02/22/2023 Comments:Take the pain medication as prescribed as needed for pain. Please follow-up with your primary care doctor in the next 2 to 3 days for further evaluation management. Please return to the ED for any new or worsening symptoms or [facility]08-10-2022 Hospital Discharge instructions Patient Education 04/14/2022 15:31:37 [...] water added (diluted fruit juice). Eat bland, iunb-xs-nsemam foods in small amounts as you are able. These foods include bananas, applesauce, rice, lean meats, toast, and crackers. Avoid fluids that contain a lot of sugar or caffeine, such as energy drinks, sports drinks, and soda. Avoid alcohol. Avoid spicy or fatty foods. General instructions Take zoey-wlr-ptbnmnv and prescription medicines only as told by your health care provider. Drink enough fluid to keep your urine pale yellow. Wash your hands often using soap and water. If soap and water are not available, use hand importer or exporter. Make sure that all people in your [...] eating and drinking to prevent dehydration. Take jjje-znv-kusosvz and prescription medicines only as told by [...] 08/22/2006 Document Revised: 12/14/2019 Document Reviewed: 01/30/2019 [employer] Patient Education 2019 [employer]. Follow Up Care 01/28/2022 13:58:23 With:Monique Marquez CNP Address: When:3 months [facility] 05-26-2022 Hospital Discharge instructions [...] drinks. ?Tomatoes and foods made with tomatoes. ?Posey or spicy foods. ?Chocolate and peppermint. Do not drink alcohol. General instructions Take oqll-awk-jmykowg and prescription medicines only as told by [...] 11/11/2004 Document Revised: 12/18/2018 Document Reviewed: 12/18/2018 [employer] Patient Education 2020 [employer]. Follow Up Care 01/13/2022 12:36:01 With:Monique Marquez CNP Address: When:3 months [facility] 05-09-2022 Hospital Discharge instructions Patient Education 01/11/2022 09:56:58 Endoscopy, Care After Procedure [facility]) Endoscopy Care After Procedure Please read the instructions outlined below and refer to this sheet in the next few weeks. These discharge instructions provide you with general information on caring for [facility] Your doctor may also give you specific [...] 04/05/2005 Document Re-Released: 02/13/2007 [employer] Patient Information Soraa. 01/11/2022 09:56:58 Pearce's Esophagus Pearce's Esophagus Pearce's [...] drinks. ?Tomatoes and foods made with tomatoes. ?Posey or spicy foods. ?Chocolate and peppermint. Do not drink alcohol. General instructions Take jana-fnp-zrtvaol and prescription medicines only as told by [...] 11/11/2004 Document Revised: 12/18/2018 Document Reviewed: 12/18/2018 [employer] Patient Education Mister Bell. Follow Up Care 12/03/2021 15:32:26 With:Anai REAGAN Address: [address] [place] [address] Business (1) When:1 to 2 weeks Comments:Call for any problems. [facility]03-30-2022 Hospital Discharge instructions Follow Up Care 12/02/2021 10:32:32 With:JHOANA MELGOZA PA-C, URL Address: [address] [place] [address] When: Unknown [facility] Evaluation + Plan note Future Appointments Appointment Date:01/11/2022 09:40:00 AM Scheduled Provider: Location:[facility] Appointment Type:Surgery FT [facility] Evaluation + Plan note Future Appointments Appointment Date:04/14/2022 03:00:00 PM Scheduled Provider:Monique Maqruez CNP Location:[facility] Appointment Type:[facility] Follow Up Future Scheduled Tests Radiology* NM Gastric Emptying Study 01/28/22 [facility] Evaluation + Plan note Future Appointments Appointment Date:04/14/2022 03:00:00 PM Scheduled Provider:Monique Marquez CNP Location:[facility] Appointment Type:[facility] Future Appointments Appointment Date:04/20/2022 12:00:00 PM Scheduled Provider: Location:.[facility] Appointment Type:US Abdominal/Pelvis () Appointment Date:06/02/2022 09:45:00 AM Scheduled Provider:Anai REAGAN MD Location:[facility] Appointment Type:[facility] Follow Up Future Scheduled Tests Laboratory* Fecal WBC Lactoferrin 04/14/22 * Giardia lamblia, Direct Detection EIA 04/14/22 * O & P Exam, Routine 04/14/22 * Clostridium difficile by PCR 04/14/22 * Enteric Panel by PCR 04/14/22 * CBC w/ Auto Diff 04/14/22 * Comprehensive Metabolic Panel 04/14/22 Radiology* US Abdomen Complete 04/20/22 [facility] Evaluation + Plan note Future Appointments Appointment Date:06/02/2022 09:45:00 AM Scheduled Provider:Anai REAGAN MD Location:[facility] Appointment Type:[facility] Follow Up Diagnostic Tests Pending * O & P Exam, Routine 04/29/22 * Giardia lamblia, Direct Detection EIA 04/29/22 [facility] noteNo assessment information available [facility] Work Phone: Evaluation noteNo InformationNosaint [facility] Tray Other Evaluation note* Diagnosis Nausea- Primary Nausea alone Dysphagia, unspecified type documented in this encounter [facility] note* Diagnosis Nausea Nausea alone documented in this encounter [facility] note* Diagnosis Dysphagia, unspecified type Gastroparesis History of Ramiro fundoplication Personal history of surgery to other organs [facility] Diagnosis Gastroparesis- Primary Malnutrition of moderate degree (HCC) Malnutrition of moderate degree Gastro-esophageal reflux disease without esophagitis Esophageal reflux Overweight (BMI 25.0-29.9) Overweight Dietary counseling and surveillance Dietary surveillance and counseling documented in this encounter [facility]* Diagnosis Gastroparesis- Primary [facility] Narrative - Reported* Type Description Date Medical History mitral valve prolapse Medical History gallstones Medical History Acid reflux Medical History Hiatal Hernia Medical History headache Surgical History hysterectomy Surgical History cholecystectomy Surgical History hiatal hernia repair Hospitalization History see above Hospitalization History kindey infections hospit alized x3 [facility] Other Hospital course Narrative No data available for this section [facility] Discharge instructions No data available for this section [facility] Additional Instructions Follow-up with your primary care doctor Return to ED if develop worsening [facility] Work Phone: Hospital Discharge instructions Additional Instructions If your symptoms return/worsen or you develop any further concerns or symptoms please see your doctor or return to the emergency department immediately. Please be sure to continue follow-up with the bioanalyst and with your scheduled EGD and further testing.[facility] Work Phone: Progress note No data available for this section [facility] Diagnostic Procedure Only (Routine) - Authorized Specialty Diagnoses / Procedures Referred By Contac t Referred To Contact MOLECULAR & FUNCTIONAL IMAGING Diagnoses Nausea Procedures NM GASTRIC EMPTYING SOLID GASTRIC EMPTYING STUDY Marques Bradley MD [address] [place] [address] Molecular & Functional Imaging [address] [place] [address] Referral ID Status Reason Start Date Expiration Date Visits Requested Visits Authorized [id number] Authorized Auto-Generat ed Referral 05/16/2023 06/14/2024 1 1 * Outpatient Procedure (Routine) - Authorized Specialty Diagnoses / Procedures Referred By Eileen t Referred To Contact [facility] Diagnoses Nausea Procedures MANOMETRY ESOPHAGEAL ESOPHAGEAL MOTILITY STUDY W/INTERP&RPT Marques Bradley MD [address] [place] [address] [address] Referral ID Status Reason Start Date Expiration Date Visits Requested Visits Authorized [id number] Authorized Auto-Generat ed Referral 05/16/2023 05/16/2024 1 1 [facility] for referral (narrative)* Outpatient Procedure (Routine) - Closed Specialty Diagnoses / Procedures [facility]erred To [facility] Diagnoses Dysphagia, unspecified type Gastroparesis History of Ramiro fundoplication Procedures EGD - THERAPEUTIC, EUS, OR TUBE INTERVENTIONS ESOPHAGOGASTRODUODENOSCOPY TRANSORAL DIAGNOSTIC STOMACH SURGERY PROCEDURE UNLISTED Marques Bradley MD [address] [place] [address] [address] Referral ID Status Reason Start Date Expiration Date V isits Requested Visits Authorized [id number] Closed Auto-Generate d Referral 05/27/2023 05/27/2024 1 1 [facility] for referral (narrative)* Outpatient Procedure (Routine) - Authorized Specialty Diagnoses / Procedures [facility] Referred To Contact [facility] Diagnoses Gastroparesis Procedures EGD - THERAPEUTIC, EUS, OR TUBE INTERVENTIONS ESOPHAGOGASTRODUODENOSC OPY TRANSORAL DIAGNOSTIC STOMACH SURGERY PROCEDURE UNLISTED Marques Bradley MD [address] [place] [address] [address] Referral ID Status Reason Start Date Expiration Date Visits Requested Visits Authorized [id number] Authorized Auto-Generat ed Referral 3 07/29/2024 1 1 [facility] for visit Narrative* Outpatient Procedure (Routine) - Closed Specialty Diagnoses / Procedures Referred By Contsavanah t Referred To Contact [facility] Diagnoses Dysphagia, unspecified type Gastroparesis History of Ramiro fundoplication Procedures EGD - THERAPEUTIC, EUS, OR TUBE INTERVENTIONS ESOPHAGOGASTRODUODENOSCOPY TRANSORAL DIAGNOSTIC STOMACH SURGERY PROCEDURE UNLISTED Marques Bradley MD [address] [place] [address] [facility] [address] [place] [id number] Referral ID Status Reason Start Date Expiration Date V isits Requested Visits Authorized [id number] Closed Auto-Generate d Referral 05/27/2023 05/27/2024 1 1 [facility] Summary Purpose Family History No [...] 018 10:23am Hospital Course Note MR#: [id number] [facility] Pt. Name: Constantino Cardoso Admitted: 08/13/2019 Discharged: [...] a 49-year-old female, who was transferred to [facility] from [facility] with acute abdominal pain. The pain has started on Tuesday while at work. 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 The pain feels similar to when she was here in April during her stay. During that time, she was told there was nothing left for Dr. Mortensen to do and she has been following up with GI specialist in [place]. She is actually due to have an EGD on August 22, 2019. She has been having nausea, but no vomit (more content not included)... Chief Complaint and Reason for Visit Chief Complaint stomach pain/hx marium Chief Complaint stomach pain/hx marium R10.9 K59.00 Chief Complaint abd pain stomach pian/vomiting Additional Source Comments INFORMATION SOURCE (unrecogn ized section and content) DATE CREATED AUTHOR 06/03/2020 [facility] DATE CREATED AUTHOR AUTHOR'S ORGANIZ ATION 01/17/[address] [facility] DATE CREATED AUTHOR AUTHOR'S ORGANIZ ATION 04/02/2023 [facility] DATE CREATED AUTHOR AUTHOR'S ORGANIZ ATION 05/16/[address] [facility] DATE CREATED AUTHOR AUTHOR'S ORGANIZ ATION 06/11/2023 [facility] DATE CREATED AUTHOR AUTHOR'S ORGANIZ ATION 08/26/2023 [facility] Care Team (unrecognized sect ion and content) Team Status: Inactive Member Role Status Dates Judi Youssef OPTICAL MECHANIC-C Primary Care Provider Active Conner Griffith DO [...] Active Pete Thakkar DO Emergency Provider Active Economic Development Coordinator Relationship Specialty Start Date End Date Joel Alejandra PCP - General Family Medicine 04/26/18 Rafa Rangel [address] [place] [phone] Referring General Surgery 04/26/18 Economic Development Coordinator Relationship Specialty Start Date End Date Joel Alejandra PCP - General Family Medicine 04/26/18 Rafa Rangel [address] [place] [address] Referring General Surgery 04/26/18 Economic Development Coordinator Relationship Specialty Start Date End Date NyJoel Onel PCP - General Family Medicine 04/26/18 Rafa Rangel [address] [place] [phone] Referring General Surgery 04/26/18 Economic Development Coordinator Relationship Specialty Start Date End Date Ny Joel Panchal PCP - General Family Medicine 04/26/18 Rafa Rangel [address] [address] [place] [address] Referring General Surgery 04/26/18 Economic Development Coordinator Relationship Specialty Start Date End Date Ny Jeol Panchal PCP - General Family Medicine 04/26/18 Rafa Rangel [address] [place] [address] Referring General Surgery 04/26/18 Economic Development Coordinator Relationship Specialty Start Date End Date Joel Alejandra PCP - General Family Medicine 04/26/18 Rafa Rangel [address] [place] [address] Referring General Surgery 04/26/18 Economic Development Coordinator Relationship Specialty Start Date End Date DomenicoJoel blanco PCP - General Family Medicine 04/26/18 Rafa Rangel [address] [place] [address] Referring General Surgery 04/26/18 Economic Development Coordinator Relationship Specialty Start Date End Date DomenicoJoel blanco PCP - General Family Medicine 04/26/18 Rafa Rangel [address] [place] [address] [address] [place] [phone] Referring General Surgery 04/26/18 Economic Development Coordinator Relationship Specialty Start Date End Date DomenicoJoel blanco Onel PCP - General Family Medicine 04/26/18 Rafa Rangel [address] [place] [address] [facility] [address] [place] [phone] Referring General Surgery 04/26/18 Economic Development Coordinator Relationship Specialty Start Date End Date Ny Joel Panchal PCP - General Family Medicine 04/26/18 Rafa Rangel [address] [facility] [address] [place] [address] Referring General Surgery 04/26/18 Economic Development Coordinator Relationship Specialty Start Date End Date Joel Alejandra PCP - General Family Medicine 04/26/18 [facility] majornoemi [address] [address] Referring General Surgery 04/26/18 Goals (unrecognized section and content) Goals may be documented in a n alternate section REASON FOR VISIT (unrecogniz ed section and content) Reason Comments Appointment Reason Comments Rn Social Services - Other Reason Onset Date Comments Procedure 05/25/2023 Manometry Esopha geal Specialty Diagnoses / Procedures Referred By Contac t Referred To Contact [facility] Diagnoses Nausea Procedures MANOMETRY ESOPHAGEAL ESOPHAGEAL MOTILITY STUDY W/INTERP&RPT Marques Bradley MD [address] [place] [address] [facility] [address] [place] [address] Referral ID Status Reason Start Date Expiration Date V isits Requested Visits Authorized [id number] Closed Auto-Generate d Referral 05/16/2023 05/16/2024 1 1 Reason Comments Results Reason Comments Patient Education Assessment Source Comments (unrecognize d section and content) In the event this informatio n is protected by the Federal Confidentiality of Alcohol and Drug Abuse Patient Records regulations: The Federal rules restrict any use of the information to criminally investigate or prosecute any alcohol or drug abuse patient.[facility] the event this information is protected by the Federal Confidentiality of Alcohol and Drug Abuse Patient Records regulations: The Federal rules restrict any use of the information to criminally investigate or prosecute any alcohol or drug abuse patient.[facility] Center[facility] the event this information is protected by the Federal Confidentiality of Alcohol and Drug Abuse Patient Records regulations: The Federal rules restrict any use of the information to criminally investigate or prosecute any alcohol or drug abuse patient.[facility] Center[facility] the event this information is protected by the Federal Confidentiality of Alcohol and Drug Abuse Patient Records regulations: The Federal rules restrict any use of the information to criminally investigate or prosecute any alcohol or drug abuse patient.[facility] Center[facility] the event this information is protected by the Federal Confidentiality of Alcohol and Drug Abuse Patient Records regulations: The Federal rules restrict any use of the information to criminally investigate or prosecute any alcohol or drug abuse patient.[facility] CenterIn the event this information is protected by the Federal Confidentiality of Alcohol and Drug Abuse Patient Records regulations: The Federal rules restrict any use of the information to criminally investigate or prosecute any alcohol or drug abuse patient.[facility] CenterIn the event this information is protected by the Federal Confidentiality of Alcohol and Drug Abuse Patient Records regulations: The Federal rules restrict any use of the information to criminally investigate or prosecute any alcohol or drug abuse patient.[facility] CenterIn the event this information is protected by the Federal Confidentiality of Alcohol and Drug Abuse Patient Records regulations: The Federal rules restrict any use of the information to criminally investigate or prosecute any alcohol or drug abuse patient.[facility] CenterIn the event this information is protected by the Federal Confidentiality of Alcohol and Drug Abuse Patient Records regulations: The Federal rules restrict any use of the information to criminally investigate or prosecute any alcohol or drug abuse patient.[facility] CenterIn the event this information is protected by the Federal Confidentiality of Alcohol and Drug Abuse Patient Records regulations: The Federal rules restrict any use of the information to criminally investigate or prosecute any alcohol or drug abuse patient.[facility] CenterIn the event this information is protected by the Federal Confidentiality of Alcohol and Drug Abuse Patient Records regulations: The Federal rules restrict any use of the information to criminally investigate or prosecute any alcohol or drug abuse patient.[facility] CenterIn the event this information is protected by the Federal Confidentiality of Alcohol and Drug Abuse Patient Records regulations: The Federal rules restrict any use of the information to criminally investigate or prosecute any alcohol or drug abuse patient.[facility] FOR RECORDS PERTAINING TO PATIENTS [...] BE BASED ON THE PRIMARY CLINICAL RECORDS. [facility] 4 the stars [facility]. provides no warranty or guarantee of the accuracy or completeness of information in this document.
[2023-11-27 06:59] LABS: Basophils Absolute Auto 0.1 10^3/uL (0.0-0.1); Basophils Percent Auto 0.7 % (0.2-2.0); Eosinophils Absolute Auto 0.2 10^3/uL (0.0-0.7); Eosinophils Percent Auto 2.3 % (0.9-7.0); Hematocrit 35.4 % (36.0-48.0); Immature Granulocytes Abs Auto 0.01 10^3/uL (0.00-0.03); Immature Granulocytes Pct Auto 0.1 % (0.0-0.5); Lymphocytes Absolute Auto 1.8 10^3/uL (1.2-3.8); Lymphocytes Percent Auto 26.2 % (20.5-60.0); Mean Corpuscular HGB Conc 31.1 g/dL (29.9-35.2); Mean Corpuscular Volume 93.4 fL (81.0-99.0); Mean Platelet Volume 9.4 fL (9.5-13.5); Monocytes Absolute Auto 0.4 10^3/uL (0.3-0.8); Monocytes Percent Auto 6.1 % (1.7-12.0); Neutrophils Absolute Auto 4.5 10^3/uL (1.4-6.5); Neutrophils Percent Auto 64.6 % (43.0-75.0); Platelet Count 331 10^3/uL (150-450); Red Blood Count 3.79 10^6/uL (4.20-5.40); Red Cell Distribution Width 13.2 % (11.0-15.0); White Blood Count 6.9 10^3/uL (4.0-11.0)
[2023-11-27 07:01] LABS: Bilirubin Urine NEGATIVE (NEGATIVE); Blood Urine SMALL (NEGATIVE); Clarity Urine CLEAR (CLEAR); Color Urine YELLOW (YELLOW); Glucose Urine UA NEGATIVE (NEGATIVE); Ketones Urine NEGATIVE (NEGATIVE); Leukocyte Esterase Urine NEGATIVE (NEGATIVE); Nitrite Urine NEGATIVE (NEGATIVE); Protein Urine NEGATIVE (NEG/TRACE); Specific Gravity Urine >=1.030 (1.005-1.025); Urobilinogen Urine 0.2 EU/dL (0.2-1.0); pH Urine 5.5 (5.0-9.0)
[2023-11-27 07:07] LABS: Urine Microscopic Indicated YES
--- NOTE | 2023-11-27 07:08 | CT_ITS ---
The [address] [address] Patient Name: CONSTANTINO CARDOSO MRN: [id number] date: 1970 Sex: F Assigned Patient Location: ER Current Patient Location: ER Accession/Order Number: [id number] Exam Date: 11/27/2023 07:16 Report Date: 11/27/2023 08:10 At the request of: MARTHA ESCALANTE Procedure: CT abdomen pelvis wo con EXAM: CT abdomen pelvis wo con HISTORY: Pain. sbo multiple prior abdominal surgeries. COMPARISON: CT scans 10/12/2023 and earlier. Abdominal series x-ray 10/13/2023 TECHNIQUE: CT abdomen pelvis without contrast. Axial scans with reformatted coronal and sagittal images. Individualized dose reduction views for this exam. FINDINGS: Lower chest: Acute process. No infiltrate or pleural effusion. Small hiatal hernia unchanged. ABDOMEN: Liver unremarkable without focal lesion. Previous cholecystectomy. The extrahepatic biliary tract appears dilated unchanged from previous. No abnormality seen within the duct. Adrenal glands, pancreas spleen unremarkable. No ascites or free fluid. No adenopathy. Normal size aorta without calcified plaque. Symmetric kidneys without hydronephrosis, renal or ureteral calculus. Bowel: Stomach is distended with gas, proximal small bowel loops in the epigastric area and left upper quadrant are distended. Mildly prominent small bowel loops left flank. Normal caliber small bowel in the lower abdomen and pelvis. Ileum is mildly prominent with fecalization.. There is moderate gas and stool the cecum and ascending and proximal transverse colon. Decreased caliber distal transverse colon, left colon and pelvic colon. Findings may reflect partial low-grade small bowel obstruction, exact transition zone not clearly identified. Pelvis: No mass or adenopathy or free fluid. No inguinal hernia or adenopathy. MUSCULOSKELETAL: No lytic or blastic bone lesion or fracture. CT/CT abdomen pelvis wo con IMPRESSION: 1. Mildly abnormal gas pattern which has been seen on prior studies. Asymmetric distention stomach and epigastric and left upper small bowel without a clearly defined transition zone. Could be partial low-grade small bowel obstruction. Patient would benefit with follow-up upper GI small bowel exam with oral contrast/barium or follow-up CT scan of the abdomen and pelvis with oral contrast. 2. No inflammation or fluid or other acute process identified in the soft tissues. 3. previous cholecystectomy with extrahepatic biliary dilatation unchanged Electronically authenticated by: THANIA MARTINEZ Date: 11/27/2023 08:10
[2023-11-27 07:15] LABS: Alanine Aminotransferase 25 U/L (14-59); Albumin Globulin Ratio 0.9; Albumin Level 3.4 g/dL (3.4-5.0); Alkaline Phosphatase 135 U/L (46-116); Anion Gap 13.3; Aspartate Amino Transferase 19 U/L (15-37); BUN Creatinine Ratio 30.1; Bilirubin Total 0.3 mg/dL (0.2-1.0); Carbon Dioxide 27.2 mmol/L (21.0-32.0); Chloride 104 mmol/L (98-107); Estimated GFR (African America >60 (>=60); Estimated GFR (Non-African Ame >60 (>=60); Globulin 3.6 g/dL; Glucose 83 mg/dL (74-106); Potassium 3.5 mmol/L (3.5-5.1); Sodium 141 mmol/L (136-145)
[2023-11-27 07:22] LABS: Magnesium 2.1 mg/dL (1.8-2.4)
[2023-11-27] MEDS: 0.9 % SODIUM CHLORIDE 1,000 ML 1000 ML IV (07:24)
[2023-11-27 07:27] LABS: Bacteria Urine SMALL #/HPF (NONE SEEN); Cast Seen? NONE SEEN #/LPF (NONE SEEN); Crystals Seen? None Seen #/HPF (None Seen); Mucus Urine MODERATE (NONE SEEN); Squamous Epithelial Cell Urine FEW #/LPF (NONE/RARE); Urine Culture Indicated YES; WBC Urine NONE SEEN #/HPF (NONE SEEN)
--- NOTE | 2023-11-27 07:55 | ED_ITS ---
HPI - Abdominal Pain General Chief Complaint: Abdominal Pain Stated Complaint: ABD PAIN Time Seen by Provider: 11/27/23 06:59 Source: patient Mode of arrival: walk-in Limitations: no limitations History of Present Illness HPI narrative: pt presented to us with 2 days of epigastric pain associate with nausea no vomiting ,last time she ate was yesterday , pt has been having multiple episodes of diarrhea since yesterday , no vomiting .no chills , cough . pt has hx of multiple intraabdominal surgeries and hx of sbo as well , Related Data Home Medications ?Medication ?Instructions ?Recorded ?Confirmed cefdinir 300 mg capsule mg 11/27/23 Allergies Allergy/AdvReac Type Severity Reaction Status Date / Time cyclobenzaprine Allergy Severe Anaphylaxis Verified 11/27/23 06:38 [From Flexeril] Penicillins Allergy Intermediate Hives Verified 11/27/23 06:38 Review of Systems ROS Status of ROS 10 or more systems reviewed and unremark able except as noted in history and below [facility] Medical History (Updated 11/27/23 @ 08:29 by Heidy Rboert MD) GERD (gastroesophageal reflux disease) ?K21.9 - Gastro-esophageal reflux disease without esophagitis (ICD-10) Elevated troponin ?R77.8 - Other specified abnormalities of plasma proteins (ICD-10) Chronic upper abdominal pain ?R10.10 - Upper abdominal pain, unspecified (ICD-10) ?G89.29 - Other chronic pain (ICD-10) Epigastric abdominal pain ?R10.13 - Epigastric pain (ICD-10) Abdominal pain, chronic, generalized ?R10.84 - Generalized abdominal pain (ICD-10) ?G89.29 - Other chronic pain (ICD-10) Headache, migraine ?G43.909 - Migraine, unspecified, not intractable, without status migrainosus (ICD-10) Gastroparesis ?K31.84 - Gastroparesis (ICD-10) Mitral valve disorder ?I05.9 - Rheumatic mitral valve disease, unspecified (ICD-10) Surgical History (Updated 10/12/23 @ 07:54 by Judy Gutierrez) 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 ?K95.89 - Other complications of other bariatric procedure (ICD-10) ?K22.4 - Dyskinesia of esophagus (ICD-10) History of hernia surgery ?Z98.890 - Other specified postprocedural states (ICD-10) ?Z87.19 - Personal history of other diseases of the digestive system (ICD-10) FH: cholecystectomy ?Z83.79 - Family history of other diseases of the digestive system (ICD-10) H/O: hysterectomy ?Z90.710 - Acquired absence of both cervix and uterus (ICD-10) Family History (Updated 10/12/23 @ 07:55 by Judy Gutierrez) Father Family history of myocardial infarction Family history of cancer Grandmother Family history of diabetes mellitus Family history of stroke Sister Family history of hypertension Social History (Updated 10/12/23 @ 07:57 by Judy Gutierrez) Within the past year, how often did you have a drink containing alcohol: never Score interpretation: A score less than 3 is consistent with normal alcohol consumption. 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 General: Well-appearing and in no apparent distress. Skin: Warm, dry, no pallor noted. No rash. Head: Normocephalic, atraumatic. Neck: Supple, non-tender. Eye: Pupils are equal, round and EOMI. No scleral icterus. Ears, Nose, Mouth, and Throat: TM are clear, no nasal mucosal hypertrophy. Oral mucosa is moist, no posterior oropharynx erythema, uvula is mid-line Cardiovascular: Regular Rate and Rhythm without murmur, gallop or rub. Respiratory: No accessory muscle use or respiratory distress. Lungs are clear to auscultation, no wheezing, rales or rhonchi Chest Wall: no tenderness Back: No midline thoracic or lumbar vertebral tenderness. No CVA tenderness Musculoskeletal: normal ROM, no calf or popliteal tenderness, no lower extremity edema/swelling GI: Abdomen is soft, epigastric mild tenderness on deep palpation No masses appreciated. No tenderness to palpation. No rebound, guarding, or rigidity noted. Neurological: A&O x4. No cranial nerve dysfunction observed. No truncal ataxia. Moves all extremities. Sensation intact. Psychiatric: Cooperative and interactive. Normal mood and affect. Constitutional Vital Signs, click to edit/add: Last Vital Signs Temp 97.8 F 11/27/23 06:34 Pulse 62 11/27/23 07:30 Resp 16 11/27/23 07:30 BP 150/89 H 11/27/23 07:30 Pulse Ox 100 11/27/23 07:30 O2 Del Method Room Air 11/27/23 07:30 Course Vital Signs Vital signs: Vital Signs Temperature 97.8 F 11/27/23 06:34 Pulse Rate 67 11/27/23 06:34 Respiratory Rate 14 11/27/23 06:34 Blood Pressure 151/83 H 11/27/23 06:34 Pulse Oximetry 99 11/27/23 06:34 Oxygen Delivery Method Room Air 11/27/23 06:34 Temperature 97.8 F 11/27/23 06:34 Pulse Rate 62 11/27/23 07:30 Respiratory Rate 16 11/27/23 07:30 Blood Pressure 150/89 H 11/27/23 07:30 Pulse Oximetry 100 11/27/23 07:30 Oxygen Delivery Method Room Air 11/27/23 07:30 MDM - Abdominal Pain MDM Narrative Medical decision making narrative: The patient CBC and chemistry shows no acute pathology she does have some mild elevation of BUN and she was provided with IV fluid. NG tube order placed and I discussed the case with Dr. Odell and he agreed on observation The patient also provided with Toradol and Pepcid she will be admitted for observation I discussed the case with Dr. Parham and she agreed on the above- mentioned plan Lab Data Labs: Lab Results 11/27/23 11/27/23 Range/Units 06:45 06:48 WBC 6.9 (4.0-11.0) 10^3/uL RBC 3.79 L (4.20-5.40) 10^6/uL Hgb 11.0 L (12.0-16.0) g/dL Hct 35.4 L (36.0-48.0) % MCV 93.4 (81.0-99.0) fL MCH 29.0 (26.7-34.0) pg MCHC 31.1 (29.9-35.2) g/dL RDW 13.2 (11.0-15.0) % Plt Count 331 (150-450) 10^3/uL MPV 9.4 L (9.5-13.5) fL Neut % (Auto) 64.6 (43.0-75.0) % Lymph % (Auto) 26.2 (20.5-60.0) % Hendricks % (Auto) 6.1 (1.7-12.0) % Eos % (Auto) 2.3 (0.9-7.0) % Baso % (Auto) 0.7 (0.2-2.0) % Neut # (Auto) 4.5 (1.4-6.5) 10^3/uL Lymph # (Auto) 1.8 (1.2-3.8) 10^3/uL Hendricks # (Auto) 0.4 (0.3-0.8) 10^3/uL Eos # (Auto) 0.2 (0.0-0.7) 10^3/uL Baso # (Auto) 0.1 (0.0-0.1) 10^3/uL Abs Immat Gran (auto) 0.01 (0.00-0.03) 10^3/uL Imm/Tot Granulo (auto) 0.1 (0.0-0.5) % Sodium 141 (136-145) mmol/L Potassium 3.5 (3.5-5.1) mmol/L Chloride 104 (98-107) mmol/L Carbon Dioxide 27.2 (21.0-32.0) mmol/L Anion Gap 13.3 BUN 25.0 H (7.0-18.0) mg/dL Creatinine 0.83 (0.55-1.02) mg/dL Est GFR ( Amer) >60 (>=60) Est GFR (Non-Af Amer) >60 (>=60) BUN/Creatinine Ratio 30.1 Glucose 83 (74-106) mg/dL Calcium 9.0 (8.5-10.1) mg/dL Magnesium 2.1 (1.8-2.4) mg/dL Total Bilirubin 0.3 (0.2-1.0) mg/dL AST 19 (15-37) U/L ALT 25 (14-59) U/L Alkaline Phosphatase 135 H (46-116) U/L Total Protein 7.0 (6.4-8.2) g/dL Albumin 3.4 (3.4-5.0) g/dL Globulin 3.6 g/dL Albumin/Globulin Ratio 0.9 Lipase 32.0 (16.0-77.0) U/L Urine Color Yellow (YELLOW) Urine Clarity Clear (CLEAR) Urine pH 5.5 (5.0-9.0) Ur Specific [place] >=1.030 A (1.005-1.025) Urine Protein Negative (NEG/TRACE) mg/dL Urine Glucose (UA) Negative (NEGATIVE) mg/dL Urine Ketones Negative (NEGATIVE) mg/dL Urine Occult Blood Small A (NEGATIVE) Urine Nitrite Negative (NEGATIVE) Urine Bilirubin Negative (NEGATIVE) Urine Urobilinogen 0.2 (0.2-1.0) EU/dL Ur Leukocyte Esterase Negative (NEGATIVE) Urine RBC 2-5 A (0-2) #/HPF Urine WBC None seen (NONE SEEN) #/HPF Ur Squamous Epith Cells Few A (NONE/RARE) #/LPF Urine Crystals None seen (None Seen) #/HPF Urine Bacteria Small A (NONE SEEN) #/HPF Urine Casts None seen (NONE SEEN) #/LPF Urine Mucus Moderate A (NONE SEEN) Ur Culture Indicated? Yes Discharge Plan Discharge Chief Complaint: Abdominal Pain Clinical Impression: Partial obstruction of small intestine Patient Disposition: Admitted as Observation Time of Disposition Decision: 08:29 Condition: Good
--- NOTE | 2023-11-27 08:53 | PM.HP ---
HPI H&P: HPI History of Present Illness Chief complaint: ABD PAIN Partial SBO Narrative: patient is a 53-year-old female with past medical history of depression, and several small bowel obstructions in the past. patient has had several abdominal surgeries including gastric bypass, hysterectomy, cholecystectomy. She reports she was last here about a month ago for similar symptoms. She developed diarrhea over the last several days but reports she did take something to help her bowels move as she was more constipated for five days ago. She often gets nauseous when she eats since her gastric bypass surgery and does have a history of esophageal strictures requiring dilation in March 2023. She denies any problems swallowing or any nausea or vomiting at this time. She reports she has been passing gas but having very loose watery stools. Patient was found to havenormal white blood cell count in the emergency department, normal electrolytes,normal liver enzymes and normal lipase. imaging CT of abdomen and pelvis showed mildly abnormal gas pattern consistent with partial low-grade small bowel junction. Patient was admitted to the hospitalist service for further plan of care. General surgery was also counseled it. At the time of admission patient notes generalized abdominal pain, no nausea or vomiting, no recent bowel movement. Opioid HPI Opioid Management Most Recent Opioid Data: Last Pain Assessment 11/27/23 13:00 Last ED Pain Assessment 11/27/23 07:30 Last ORT Total Score 0 11/27/23 09:50 Last ORT Risk Category Low Risk 11/27/23 09:50 Review of Systems ROS Narrative ROS: a complete review of systems were reviewed with patient and are positive as below or listed in History of Chief Complaint. General: no fever, chills, night sweats Head: no headache, trauma, visual changes, nausea or vomiting Skin: no reported rashes, itching or sores Eyes: no blurriness of vision Ears: no reported hearing loss, vertigo, earache, or tinnitus Throat: no sore throat, hoarseness, swelling of neck, or tongue pain Heart: no chest pain Lungs: no shortness of breath or cough GI: diarrhea and vomiting/nausea Urinary: no urinary urgency, frequency or pain Neuro: no numbness or tingling HEM: no bleeding issues or bruising ENDO: no thyroid problems Psych: no anxiety or depression PFSH [facility] Medical History (Updated 11/27/23 @ 08:29 by Heidy Robert MD) GERD (gastroesophageal reflux disease) ?K21.9 - Gastro-esophageal reflux disease without esophagitis (ICD-10) Elevated troponin ?R77.8 - Other specified abnormalities of plasma proteins (ICD-10) Chronic upper abdominal pain ?R10.10 - Upper abdominal pain, unspecified (ICD-10) ?G89.29 - Other chronic pain (ICD-10) Epigastric abdominal pain ?R10.13 - Epigastric pain (ICD-10) Abdominal pain, chronic, generalized ?R10.84 - Generalized abdominal pain (ICD-10) ?G89.29 - Other chronic pain (ICD-10) Headache, migraine ?G43.909 - Migraine, unspecified, not intractable, without status migrainosus (ICD-10) Gastroparesis ?K31.84 - Gastroparesis (ICD-10) Mitral valve disorder ?I05.9 - Rheumatic mitral valve disease, unspecified (ICD-10) Surgical History 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 ?K95.89 - Other complications of other bariatric procedure (ICD-10) ?K22.4 - Dyskinesia of esophagus (ICD-10) History of hernia surgery ?Z98.890 - Other specified postprocedural states (ICD-10) ?Z87.19 - Personal history of other diseases of the digestive system (ICD-10) FH: cholecystectomy ?Z83.79 - Family history of other diseases of the digestive system (ICD-10) H/O: hysterectomy ?Z90.710 - Acquired absence of both cervix and uterus (ICD-10) Family History Father Family history of myocardial infarction Family history of cancer Grandmother Family history of diabetes mellitus Family history of stroke Sister Family history of hypertension Social History Within the past year, how often did you have a drink containing alcohol: never Within the past year, how many standard drinks containing alcohol did you have on a typical day: 1 or 2 Within the past year, how often did you have six or more drinks on one occasion: never Total score: 0 Score interpretation: A score less than 3 is consistent with normal alcohol consumption. 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 Known occupational exposures/hazards: No Highest level of school completed/degree received: high school graduate Do you want help with school or training: No Are you now , , , , never or living with a partner: In a typical week, how many times do you talk on the telephone with family, friends, or neighbors: 3 or more times per week How often do you get together with friends or relatives: 3 or more times per week How often do you attend quaker or congregational services: never Do you belong to any clubs or organizations such as quaker groups unions, [employer] or athletic groups, or school groups: no Total score: 2 Score interpretation: A score of greater than or equal to 2 indicates the lowest level of social isolation. Little interest or pleasure in doing things: not at all Feeling down, depressed, or hopeless: not at all Feel stressed/tense/nervous/anxious/difficulty sleeping: not at all Due to disability, difficulty making decisions: No Do you think of yourself as: straight/heterosexual Gender Identity: female Meds Home Medications and Allergies Home Medications ?Medication ?Instructions ?Recorded ?Confirmed ?Type cefdinir 300 mg capsule 300 mg PO BID 11/27/23 11/27/23 History dicyclomine 20 mg tablet 20 mg PO QID 11/27/23 11/27/23 History Allergies Allergy/AdvReac Type Severity Reaction Status Date / Time cyclobenzaprine Allergy Severe Anaphylaxis Verified 11/27/23 06:38 [From Flexeril] Penicillins Allergy Intermediate Hives Verified 11/27/23 06:38 Exam Narrative Exam Narrative: General: Patient is alert, and oriented to person, place and time with normal affect, proper hygiene Skin: no visible rashes, or ulcers Head: atraumatic, acephalic Eyes: PERRLA, no nystagmus present, conjunctiva clear, no scleral icterus Neck: no masses palpated, normal thyroid, no JVD or audible carotid bruits Heart: Normal rate and rhythm, no murmurs/rubs/gallops Lungs: no audible wheezes, crackles and normal breath sounds all lung wolff Abdomen: diminished audible bowel sounds, no distension, No palpable masses, no organomegaly, no rebound/guarding/ or rigidity, diffuse tenderness Musculoskeletal: muscle atrophy noted, ROM is limited due to being in hospital bed, no swelling bilateral lower extremities Neuro: CN II-X grossly intact Constitutional Vital Signs, click to edit/add: Last Vital Signs Temp 97.8 F 11/27/23 06:34 Pulse 71 11/27/23 08:39 Resp 18 11/27/23 08:39 BP 163/100 H 11/27/23 08:39 Pulse Ox 100 11/27/23 08:39 O2 Del Method Room Air 11/27/23 08:39 Results Labs Labs: Short CBC 11/27/23 Range/Units 06:48 WBC 6.9 (4.0-11.0) 10^3/uL Hgb 11.0 L (12.0-16.0) g/dL Hct 35.4 L (36.0-48.0) % Plt Count 331 (150-450) 10^3/uL BMP 11/27/23 06:48 Sodium 141 Potassium 3.5 Chloride 104 Carbon Dioxide 27.2 BUN 25.0 H Creatinine 0.83 Glucose 83 Calcium 9.0 Liver Function 11/27/23 Range/Units 06:48 Total Bilirubin 0.3 (0.2-1.0) mg/dL AST 19 (15-37) U/L ALT 25 (14-59) U/L Alkaline Phosphatase 135 H (46-116) U/L Albumin 3.4 (3.4-5.0) g/dL Urine 11/27/23 Range/Units 06:45 Urine Color Yellow (YELLOW) Urine Clarity Clear (CLEAR) Urine pH 5.5 (5.0-9.0) Ur Specific [place] >=1.030 A (1.005-1.025) Urine Protein Negative (NEG/TRACE) mg/dL Urine Glucose (UA) Negative (NEGATIVE) mg/dL Assessment and Plan Assessment and Plan (1) Partial obstruction of small intestine: Assessment and Plan: NPO, IVF hydration, General Surgery recommends small bowel follow through tomorrow. (2) Nausea and vomiting: Assessment and Plan: antiemetics as needed. (3) GERD (gastroesophageal reflux disease): Assessment and Plan: given dose of protonix and started getting some bradycardia on tele, i discontinued protonix and ordered EKG (4) Gastroparesis: Assessment and Plan: hold dicyclomine for now Plan patient is full code inpatient status as is likely to cross 2 midnights for her medically needed care Lovenox for dvt prophylaxis
[2023-11-27] MEDS: FAMOTIDINE/PF 20 MG/2 ML VIAL IV (08:57)
[2023-11-27] MEDS: KETOROLAC TROMETHAMINE 30 MG/ML VIAL 15 MG IVP (08:57)
--- OUTSIDE RECORDS SUMMARY | 2023-11-27 09:40 | XMS_ITS | CCD ---
Author Organization [facility] Care Team Providers Care Acoustical Carpenter Name Role Phone LEONA MORTENSEN Admitting Unavailable LEONA MORTENSEN Attending Unavailable KEVIN HERRERA Primary Care Unavailable KEVIN HERRERA Referring Unavailable [place] Procedure Practitioner Unavailab ORESTES Cruz Surgeon Unavailable JUDI YOUSSEF Primary Care Physician DONI Youssef Primary Care Provider DO Conner Griffith Emergency Provider [phone] Jennie Ayon Unavailable MD Jennie Ayon Attending Provider [phone] JOHNATHAN RUDOLPH Attending Unavailibis RUDOLPH, DR [...] Care Unavailable FAB ., BALTAZAR Consulting Unavailable FBA ., BALTAZAR Admitting Unavailable FAB ., BALTAZAR [...] Unavailable MIKAEL, JUDI Consulting Unavailable LINDA Youssef-C [facility] Primary [facility] Provider DO Conner Griffith Emergency Provider DO Pete Thakkar Emergency Provider [phone] [facility] Primary Care Provider ClaireRafanoemi Unavailable [phone] Renny Gan Unavailable Mikael, Judi Joan Primary Care Unavailable Gladis, Conner M Admitting Unavailable Gladis, Conner M Attending Unavailable Mikael, [facility] Primary Care Unavailable Asaad, Imad Admitting Unavailable Asaleo, Imad Attending Unavailable Renny Gan Consulting Unavailabl e Mikael, [facility] Primary Care Unavailable Deann Montalvo Attending Unavailable Alahmad, Alaa Admitting Unavailable Mikael, [facility] Primary Care Unavailable GladisErnaed M Admitting Unavailable GladisErna salinased M Attending Unavailable Mikael, [facility] Primary Care Unavailable Pete Thakkar Admitting Unavailable Pete Thakkar Attending Unavailable Samuel Estrella Attending Unavailable Monique Marquez Attending Unavailable Anai REAGAN Attending Unavailable Zabrina Patton Attending Unavailable MARQUES BRADLEY Referring Unavailable PAVLOCK, [facility] Primary Care Unavailable PAVLOCK, [facility] Primary Care Unavailable KROHMARQUES Referring Unavailable KROH, MARQUES Patel Attending Unavailable IMER CHERRY Referring Unavailable [facility] Primary Care Unavailable PAVLOCK, [facility] Primary Care Unavailable KROH, MARQUES D Referring Unavailable KAITLYN TORRES Attending Unavailable KROH, MARQUES Patel Referring Unavailable PAVLOCK, [facility] Primary Care Unavailable MELISSA MONTALVO Attending Unavailable KROH, MARQUES Patel Referring Unavailable PAVLOCK, [facility] Primary Care Unavailable SLY HEART Attending Unavailable KROHMARQUES Referring Unavailable [facility] Primary Care Unavailable BRENNEN SHAW Attending Unavailable Allergies Allergy Classification Reported Allergen(s) Allergy Type Date of Onset Reaction(s) Facility (5 sources) cyclobenzaprine; Translations: [CYCLOBENZAPRINE] Drug Allergy 04-28-20 Swelling of Lip/Tongue/Thr oat [facility] (6 sources) Penicillins Drug allergy (disorder) 09-02-20 15 Rash [facility] (20 sources) cyclobenzaprine; Translations: [cyclobenzaprine] Drug Allergy 04-28-20 18 Pharyngeal swelling (finding), Swelling [facility] (20 sources) Penicillin; Translations: [penicillin] Drug Allergy 04-28-20 18 Swelling (morphologic abnormality), Swelling [facility] (8 sources) penicillAMINE Drug Allergy rash [employer] Other (2 sources) cyclobenzaprine Drug Allergy 03-23-20 16 [facility]ository (1 source) traMADol Drug Allergy [facility] (1 source) traMADol Drug Allergy [facility] (1 source) cyclobenzaprine Drug Allergy 03-23-20 23 [facility] Repository (1 source) Penicillins Drug allergy (disorder) 03-23-20 23 [facility]ository Medications Current Medications Medication Drug [...] by mouth twice daily. polyethylene glycol 3350 54385 mg powder for oral solution (1 source) [...] by mouth every six hours Hydrocodone-Acetami nophen ([place]) 5-325 mg Tablet Discontinued 1 TAB PO Q6H June 21, 2019 12:00am February 15, 2023 9:46am Start: 11-12-2018 End: 01-30-2019 take 1 tablet by mouth every four to six hours Hydrocodone-Acetaminophen ([place]) 5-325 mg tablet Discontinued 1 TAB PO [...] 05-10-2019 Chronic Other aftercare (1 source) Other filbert grower (current) drug therapy; Translations: [OTH DIRECTOR OF VALUATION CURRENT DRUG THERAPY] Onset: 11-30-2022 Episodic Other [...] EVALon 023 ANES POSTPROC EVAL HNO ID: [id number] Author: Carlota Jeffrey MD Service: ? Author Type: Anesthesiologist Type: Anesthesia Postprocedure Evaluation Filed: 08/25/2023 5:35 PM Note Text: POST ANESTHESIA EVALUATION NOTE : 1970 Procedure Summary Date: 08/25/23 Room / Location: Gastroenterology Anesthesia Start: 1444 Anesthesia Stop: 155 Procedure: EGD - THERAPEUTIC, EUS, OR TUBE INTERVENTIONS Diagnosis: Gastroparesis (OTHER) Scheduled Providers: Marques Bradley MD; Carlota Jeffrey MD; Vanessa Mcmillan APRN.SECONDARY SPECIAL EDUCATION TEACHER Responsible Provider: Carlota Jeffrey MD Anesthesia Type: [...] August 25, 2023 TIME: 5:35 PM CSN: [id number] Normal [facility] ANES PRE-OPon 08-25-2023 ANES PRE-OP HNO ID: [id number] Author: Carlota Jeffrey MD Service: ? Author [...] and consent discussed: yes. Patient / Responsible Republican agrees to proceed: yes Patient / Surrogate [...] August 25, 2023 TIME: 11:46 AM CSN: [id number] Normal [facility] HISTORY PHYSICALon HISTORY PHYSICAL HNO ID: [id number] Author: Gavi Bourgeois MD Service: General Surgery [...] DATE: August 25, 2023 TIME: 6:57 AM [facility] NURSING PROGon 08-25-2023 NURSING PROG HNO ID: [id number] Author: Melody Walter, RN Service: Nursing Author [...] None Electronically Signed By: Melody Walter RN [facility] NURSING PROG HNO ID: [id number] Author: Pamela Osuna RN Service: ? Author [...] By: Pamela Navarro RN In Department: GASTROENTEROLOGY [facility] CONSTANTINO CARDOSO ([id number]) 1970 F Date Time Provider Department 07/22/23 [...] Status:Closed by EVELYN BLACK on 07/22/23 Normal [facility] ANES POSTPROC EVALon 023 ANES POSTPROC EVAL HNO ID: [id number] Author: Sly Heart MD Service: ? Author [...] Scheduled Providers: Marques Bradley MD; Amanda Bernard APRN.SECONDARY SPECIAL EDUCATION TEACHER; Sly Heart MD Responsible Provider: Sly Heart [...] July 14, 2023 TIME: 12:26 PM CSN: [id number] Normal [facility] ANES PRE-OPon 07-14-2023 ANES PRE-OP HNO ID: [id number] Author: Sly Heart MD Service: ? Author Type: Anesthesiologist Type: Anesthesia Preprocedure Evaluation Filed: 07/14/2023 9:19 AM Note Text: ANESTHESIOLOGY DAY OF SURGERY NOTE : 1970 Procedure Information Date/Time: 07/14/23929 Scheduled providers: Marques Bradley MD; Amanda Bernard APRN.SECONDARY SPECIAL EDUCATION TEACHER; Sly Heart MD Procedure: EGD - THERAPEUTIC, [...] and consent discussed: yes. Patient / Responsible Republican agrees to proceed: yes Patient / Surrogate [...] July 14, 2023 TIME: 9:11 AM CSN: [id number] Normal [facility] EGD - THERAPEUTIC, EUS, OR T UBE INTERVENTIONSon 07-14-2023 [facility] HISTORY PHYSICALon HISTORY PHYSICAL HNO ID: [id number] Author: Raúl Quintero MD Service: General Surgery [...] medications for this visit. REVIEW OF SYSTEMS: OIL AND GAS SUPERINTENDENT: Negative for CVA, Negative for TIA Respiratory: [...] July 14, 2023 TIME: 9:40 AM Normal [facility] NURSING PROGon 07-14-2023 NURSING PROG HNO ID: [id number] Author: Mónica Spaulding RN Service: Nursing Author Type: Registered Nurse Type: Nursing Progress Note Filed: 07/14/2023 11:21 AM Note Text: 1121: Dr. Mehrdad Heart paged : Patient Constantino Cardoso in post bed 10: Complaining of 10/10 abdominal pain (gas), mild nausea. Any further orders? Thanks! Mari Spaulding RN BSN Normal [facility] NURSING PROG HNO ID: [id number] Author: Mónica Spaulding RN Service: Nursing Author [...] Signed By: Mónica Spaulding RN BSN Normal [facility] NURSING PROG HNO ID: [id number] Author: Candace Jaramillo RN Service: ? Author [...] By: Candace Jaramillo RN In Department: GASTROENTEROLOGY [facility] SURGICAL PATHOLOGYon 023 ADDENDUM 1: [facility] Comment on above: Order Comment: Speci men Type: TISSUE SPECIMENOrdering Facility: [facility] Address: [address] [place] [address] Result Comment: Give n the background of chronic gastritis a Helicobacter pylori immunostain was performed on block A and is negative for Helicobacter pylori organisms. AEB 07/20/2023 Laboratory Developed Test (LDT) Disclaimer: Performance characteristics of immunohistochemical, immunofluorescent and chromogenic in-situ hybridization tests have been determined by the performing laboratory within [facility]???s [facility] Pathology and Laboratory Medicine [place] ([facility], [facility], [facility], [facility], [facility], [facility], or [facility]) in a manner consistent with [...] #### S ####[facility] LABCLIA [id number] [place] [address] [place] CASE REPORT Normal [facility] Comment on above: Order Comment: Speci men Type: TISSUE SPECIMENOrdering Facility: [facility] Address: [address] [place] [address] Result Comment: Surg [facility] Pathology Report Case: [id number] Authorizing Provider: Marques Bradley MD Collected: 07/14/2023 10:42 AM Ordering Location: Gastroenterology Received: 07/14/2023 07:34 PM Pathologist: Marilou Zacarias MD Specimen: STOMACH BIOPSY, R/O H.Pylori Performed By: #### S ####[facility] LABCLIA [id number] [address] OF [facility] DIAGNOSIS COMMENT Immunohistochemical stain for Helicobacter pylori is pending and will be reported as an addendum. Normal [facility] Comment on above: Order Comment: Speci men Type: TISSUE SPECIMENOrdering Facility: [facility] Address: [address] [place] [address] Performed By: #### S ####[facility] LABIA [id number] [address] OF [facility] FINAL DIAGNOSIS Normal [facility] Comment on above: Order Comment: Speci men Type: TISSUE SPECIMENOrdering Facility: [facility] Address: [address] [place] [address] Result Comment: Velma scott, biopsy: - Chronic inactive gastritis. See comment. AEB/dkclementina 07/18/2023 Performed By: #### S ####[facility] LABIA [id number] [address] [place] FINAL PERFORMING LAB Normal [facility] Comment on above: Order Comment: Speci men Type: TISSUE SPECIMENOrdering Facility: [facility] Address: [address] [place] [address] Result Comment: Diag nostic interpretation performed at [facility], [address] [address] CLIA# [id number] Chronometer Assembler: Maurisio Ritchie M.D. Performed By: #### S ####[facility] LABIA [id number] [address] [place] GROSS DESCRIPTION Normal [facility] Comment on above: Order Comment: Speci men Type: TISSUE SPECIMENOrdering Facility: [facility] Address: [address] [place] [address] Result Comment: A. S TOMACH BIOPSY Received in formalin are two pieces of hager, soft tissue aggregating to 0.5 x 0.2 x 0.2 cm. Totally submitted in one cassette. Two Gross examination performed at [facility], [facility] [address] July 14, 2023 11:10 PM Performed By: #### S ####[facility] [id number] [address] OF [place] Lipase Levelon 06-06-2023 Lipase [Catalytic activity/Vol] 33 U/L Normal 13-58 [facility] Comment on above: Performed By: #### 2 [id number] ####[facility] [address] [place] [address] [facility] 05-27-2023 CNPN Telephone (GENBMI) CONSTANTINO CARDOSO ([id number]) 1970 F Date Time Provider Department 05/27/23 [...] Status:Closed by EVELYN BLACK on 05/27/23 Normal [facility] GASTRIC EMPTYING SOLIDon 05-26-2023 [place] GASTRIC EMPTYING SOLID * * *Final Report* * * DATE OF EXAM: May 26 2023 11:11AM [facility] 0017 - [place] GASTRIC EMPTYING SOLID / PROCEDURE REASON: Nausea [...] RATE OF GASTRIC EMPTYING OF SOLID MEAL. Lamination Machine Operator: PSCB Transcribe Date/Time: May 26 2023 11:18A Dictated by : SILVANO WELSH MD This examination was interpreted and the report reviewed and electronically signed by: SILVANO WELSH MD on May 26 2023 11:18AM EST [id number] Normal [facility] CNNURSEon 05-25-2023 [facility] Visit (GASTMN) CONSTANTINO CARDOSO ([id number]) 1970 F Date Time Provider Department 05/25/23 8:30 AM NURSE GI LAB 2 GASTMN During your visit today, we recorded the following information about you: Pedro Gonzalez LPN 05/25/2023 4:15 PM Signed Name: Constantino Cardoso [facility]#: [id number] Date: 05/25/2023 ESOPHAGEAL MANOMETRY TEST Indication: Nausea [...] .Pedro Gonzalez LPN Referring Provider: MARQUES BRADLEY [[id number]] Allergies As of Date: 05/25/2023 Noted Allergy Reaction FLEXERIL (CYCLOBENZAPRINE) 04/28/2018 7 - Swelling PENICILLIN 04/28/2018 7 - Swelling Date Reviewed: 05/06/2023 Reviewed by: Judy Michaels MA - Fully Assessed Reason for Visit: Procedure [88] Cmt: Manometry Esophageal Visit Diagnosis:Nausea [R11.0] Order(s):MANOMETRY ESOPHAGEAL [38290JVX] Order #: [id number] Prescriptions as of 05/25/2023 - dicyclomine (BENTYL) [...] Encounter Status:Closed by PEDRO GONZALEZ on 05/25/23 [facility] Magda 05-16-2023 CNPN Telephone (GENBMI) CONSTANTINO CARDOSO ([id number]) 1970 F Date Time Provider Department 05/16/23 [...] - Swelling Date Reviewed: 05/06/2023 Reviewed by: Jduy Michaels MA - Fully Assessed Prescriptions as [...] Encounter Status:Closed by EVELYN BLACK on 05/16/23 [facility] CNOVon 05-06-2023 CNOV Office Visit (GENBMI ) CONSTANTINO CARDOSO ([id number]) 1970 F Date Time Provider Department 9/1/23 8:50 AM MARQUES BRADLEY [facility] During your visit today, we recorded the [...] for internal providers or letter via the [employer] Postal Service for external providers. Chief Complaint: [...] Time: 8:15 AM Referring Provider: IMER CHERRY [[id number]] Allergies As of Date: 05/06/2023 Noted Allergy Reaction (more content not included)... Normal [facility] CNPNon 05-02-2023 CNPN Telephone (GENBMI) CONSTANTINO CARDOSO ([id number]) 1970 F Date Time Provider Department 05/02/23 EVELYN BLACK GENBMI During your visit today, we recorded the following information about you: Evelyn Black, RN 05/04/2023 1:55 PM Addendum BMI SPECIALTY CARE COORDINATION TELEPHONE ENCOUNTER Chief complaint AND duration dysphagia. Type of procedure: hernia repair hiatal with Dr. MORTENSEN in [place] February of 2019. Sending OP notes Nursing assessment (subjective/objective) . pain in chest area and getting worse, hard to breathe c/o nausea and oral intolerance, using miralax for BM Went to [place] ED March 2023 who told her she needed a stent in her heart..but her c/o were difficulty swallowing and sent pt home and referred her to [facility] and was admitted for almost a [...] HHR a year later @ OSH in [place] Recommendation: appt after records obtained, encouraged small [...] Encounter Status:Closed by EVELYN BLACK on 05/02/23 [facility] Magda 04-26-2023 CNPN Telephone (GENBMI) CONSTANTINO CARDOSO ([id number]) 1970 F Date Time Provider Department 04/26/23 [...] Encounter Status:Closed by EVELYN BLACK on 04/26/23 [facility] 04-18-2023 CNPN Telephone (GENBMI) CONSTANTINO CARDOSO ([id number]) 1970 F Date Time Provider Department 04/18/23 [...] Ma - Fully Assessed Reason for Visit: Framing Consultant - Other [2342] Prescriptions as of 04/18/2023 - ciprofloxacin HCl [...] on 04/18/23 [facility] 04-07-2023 CNPN Telephone (GASTSP) WALKERCONSTANTINO ([id number]) 1970 F Date Time Provider Department 04/07/23 [...] Status:Closed by YANCY LOPEZ on 04/07/23 Normal [facility] NM gastric emptying studyon 03-31-2023 NM gastric emptying study [facility] [address] Nuclear Medicine Report Signed Patient: WalkerConstantino MR#: [id number] : 1970 Acct:[id number] Age/Sex: 52 / F ADM Date: 03/26/23 Loc: Room: [address] [place] [address] Type: ADM IN Attending Dr: Deann Montalvo [...] Samuel Stone M.D.03/31/2023 10:03 AM Dictation Location: [place] [address] Transcribed By: [facility] 03/31/23 1003 Dictated By: Samuel Stone DO 03/31/23 0956 Signed By: 03/31/23 1003 [facility] Comprehensive Metabolic Pane miranda 03-29-2023 Albumin [Mass/Vol] 3.8 g/dL Normal 3.5-5.7 [facility] Comment on above: Performed By: #### C DIANN DOUGLAS #### [address] Albumin/Globulin [Mass ratio] 1.4 {ratio} [facility] Comment on above: Performed By: #### C STELLA, CMP #### [facility] [address] [id number] [facility] ALP [Catalytic activity/Vol] 102 U/L Normal 34-104 [facility] Comment on above: Performed By: #### C STELLA CMP #### [place] [id number] [facility] ALT [Catalytic activity/Vol] 10 U/L Normal 7-52 [facility] Comment on above: Performed By: #### C STELLA, CMP #### [place] [address] [place] Anion gap [Moles/Vol] 10.4 mmol/L Normal 6.0-15.0 [facility] Comment on above: Performed By: #### C STELLA, CMP #### [facility] [address] AST [Catalytic activity/Vol] 14 U/L Normal 13-39 [facility] Comment on above: Performed By: #### C STELLA, CMP #### [facility] [address] Bilirubin [Mass/Vol] 0.5 mg/dL Normal 0.3-1.0 [facility] Comment on above: Performed By: #### C STELLA, CMP #### [facility] [address] Calcium [Mass/Vol] 9.0 mg/dL Normal 8.6-10.3 [facility] Comment on above: Performed By: #### C STELLA, CMP #### [facility] [address] Chloride [Moles/Vol] 103 mmol/L Normal 98-107 [facility] Comment on above: Performed By: #### C STELLA, CMP #### [facility] [address] [place] [address] [place] CO2 [Moles/Vol] 28.4 mmol/L Normal 21.0-31.0 [facility] Comment on above: Performed By: #### C STELLA, CMP #### [facility] [address] [place] [address] [place] Creatinine [Mass/Vol] 0.67 mg/dL Normal 0.60-1.20 [facility] Comment on above: Performed By: #### C STELLA, CMP #### [facility] [address] [place] [address] [place] Creatinine Clr Calc Pharmacy 106.18 Normal [facility] Comment on above: Result Comment: PERF ORMED BY: [place] [address] PATHOLOGIST RAILROAD SIGNAL TECHNICIAN ROOSEVELT KEYES M.D. Performed By: #### C STELLA, CMP #### [facility] [address] [place] [address] [place] GFR/1.73 sq M.predicted MDRD (S/P/Bld) [Vol rate/Area] mL/min/{1.73_m2} [facility] Comment on above: Performed By: #### C STELLA, CMP #### [facility] [address] [place] [address] [place] Globulin (S) [Mass/Vol] 2.7 g/dL [facility] Comment on above: Performed By: #### C STELLA, CMP #### [facility] [address] Glucose [Mass/Vol] 96 mg/dL Normal 70-100 [facility] Comment on above: Result Comment: [facility] Glucose Reference Range is dependent on time and content of last meal. Glucose of more than 200 mg/dL in a nonstressed, ambulatory subject supports the diagnosis of Diabetes Mellitus. ADA recommended reference range Performed By: #### C STELLA, CMP #### [facility] [address] [place] [address] [place] Potassium [Moles/Vol] 3.8 mmol/L Normal 3.5-5.1 [facility] Comment on above: Performed By: #### C STELLA, CMP #### [place] [address] [place] Protein [Mass/Vol] 6.5 g/dL Normal 6.4-8.9 [facility] Comment on above: Performed By: #### C STELLA, CMP #### [facility] [address] [place] [address] [place] Sodium [Moles/Vol] 138 mmol/L Normal 136-145 [facility] Comment on above: Performed By: #### C STELLA, CMP #### [facility] [address] [place] [address] [place] Urea nitrogen [Mass/Vol] 8 mg/dL Normal 7-25 [facility] Comment on above: Performed By: #### C STELLA, CMP #### [facility] [address] [place] [address] [facility] [place] esophagus ugion 3 [place] esophagus ugi [facility] [address] [place] [address] [place] [address] Fluoroscopy Report Signed Patient: Constantino Cardoso MR#: [id number] : 1970 Acct:[id number] Age/Sex: 52 / F ADM Date: 03/26/23 Loc: Room: [address] [place] [address] Type: ADM IN Attending Dr: Deann Montalvo MD Copies to: MD Deann Blue MD Ordering Provider: Renny Gan MD Date of Service: 03/29/23 [place] esophagus ugi: NAUSEA DOUBLE CONTRAST UPPER GI SERIES CLINICAL HISTORY: Nausea vomiting. History of Ramiro fundoplication. COMPARISON: None TECHNIQUE: Double contrast upper GI series was performed. Cumulative Air Kerma in mGy: 305.03 mGy FINDINGS: Loan Administrator image demonstrates no acute findings. The esophagus [...] Bateman Jr., D.ONeo03/29/2023 1:23 PM Dictation Location: [place] [address] Transcribed By: [facility] 03/29/23 1323 Dictated By: Tiburcio Bateman Jr, DO 03/29/23 1317 Signed By: 03/29/23 1323 Normal [facility] Hemogram CBC Without Diffon 03-29-2023 Erythrocyte distribution width (RBC) [Ratio] 13.4 % Normal 11.9-15.3 [facility] Comment on above: Performed By: #### C BCNO, CMP #### [address] Hematocrit (Bld) [Volume fraction] 35.4 % Normal 34.0-46.4 [facility] Comment on above: Performed By: #### C BCNO, CMP #### [facility] [address] Hemoglobin (Bld) [Mass/Vol] 12.0 g/dL Normal 11.8-15.4 [facility] Comment on above: Performed By: #### C BCNO, CMP #### [address] MCH (RBC) [Entitic mass] 29.2 pg Normal 24.7-34.3 [facility] Comment on above: Performed By: #### C BCNO, CMP #### [address] MCV (RBC) [Entitic vol] 86.0 fL Normal 80-100 [facility] Comment on above: Performed By: #### C BCNO, CMP #### [address] Mean Corpuscular HGB Conc 33.9 g/dL Normal 32.0-35.0 [facility] Comment on above: Performed By: #### C BCNO, CMP #### [address] Platelet mean volume (Bld) [Entitic vol] 7.6 fL Normal 6.3-10.7 [facility] Comment on above: Result Comment: PERF ORMED BY: [place] [address] PATHOLOGIST RAILROAD SIGNAL TECHNICIAN ROOSEVELT KEYES M.D. Performed By: #### C BCNO, CMP #### [address] Platelets (Bld) [#/Vol] 288 10*3/uL Normal 150-450 [facility] Comment on above: Performed By: #### C BCNO, CMP #### [facility] [address] [place] [id number] [facility] RBC (Bld) [#/Vol] 4.11 10*6/uL Normal 3.60-5.00 [facility] Comment on above: Performed By: #### C BCNO, CMP #### [facility] [address] [id number] [facility] WBC (Bld) [#/Vol] 6.5 10*3/uL Normal 3.8-11.6 [facility] Comment on above: Performed By: #### C BCNO, CMP #### [facility] [address] XR abdomen min 2Von 03-28-20 XR abdomen min 2V [facility] [place] [address] [place] [address] XRay Report Signed Patient: Constantino Cardoso MR#: [id number] : 1970 Acct:[id number] Age/Sex: 52 / F ADM Date: 03/26/23 Loc: Room: [address] [place] [address] Type: ADM IN Attending Dr: Deann Montalvo [...] Bateman Jr., D.O.03/28/2023 12:24 PM Dictation Location: [place] [address] Transcribed By: [facility] 03/28/23 1224 Dictated By: Tiburcio Bateman Jr, DO 03/28/23 1223 Signed By: 03/28/23 1224 [facility] Complete Blood Count Auto Di ffon 03-27-2023 Basophils (Bld) [#/Vol] 0.0 10*3/uL Normal 0.0-0.2 [facility] Comment on above: Result Comment: PERF ORMED BY: [place] [address] PATHOLOGIST RAILRO[employer] SIGNAL TECHNICIAN ROOSEVELT KEYES M.D. Performed By: #### C BC #### [address] Basophils/100 WBC (Bld) 0.5 % Normal . [facility] Comment on above: Performed By: #### C BC #### [address] Eosinophils (Bld) [#/Vol] 0.2 10*3/uL Normal 0.0-0.45 [facility] Comment on above: Performed By: #### C BC #### [address] Eosinophils/100 WBC (Bld) 4.7 % Normal . [facility] Comment on above: Performed By: #### C BC #### [address] Erythrocyte distribution width (RBC) [Ratio] 13.6 % Normal 11.9-15.3 [facility] Comment on above: Performed By: #### C BC #### [address] Hematocrit (Bld) [Volume fraction] 34.1 % Normal 34.0-46.4 [facility] Comment on above: Performed By: #### C BC #### [place] [address] [place] Hemoglobin (Bld) [Mass/Vol] 11.4 g/dL Low 11.8-15.4 [facility] Comment on above: Performed By: #### C BC #### [address] Lymphocytes (Bld) [#/Vol] 1.3 10*3/uL Normal 1.00-4.8 [facility] Comment on above: Performed By: #### C BC #### [address] Lymphocytes/100 WBC (Bld) 32.8 % Normal . [facility] Comment on above: Performed By: #### C BC #### [address] MCH (RBC) [Entitic mass] 28.9 pg Normal 24.7-34.3 [facility] Comment on above: Performed By: #### C BC #### [address] MCV (RBC) [Entitic vol] 86.0 fL Normal 80-100 [facility] Comment on above: Performed By: #### C BC #### [address] Mean Corpuscular HGB Conc 33.6 g/dL Normal 32.0-35.0 [facility] Comment on above: Performed By: #### C BC #### [address] Monocytes (Bld) [#/Vol] 0.3 10*3/uL Normal 0.0-0.8 [facility] Comment on above: Performed By: #### C BC #### [address] Monocytes/100 WBC (Bld) 7.7 % Normal . [facility] Comment on above: Performed By: #### C BC #### [address] Neutrophils (Bld) [#/Vol] 2.1 10*3/uL Normal 1.8-7.7 [facility] Comment on above: Performed By: #### C BC #### [address] Neutrophils/100 WBC (Bld) 54.3 % Normal . [facility] Comment on above: Performed By: #### C BC #### [address] NRBC% 0.1 /100{WBC} Normal 0-0.5 [facility] Comment on above: Performed By: #### C BC #### [address] Platelet mean volume (Bld) [Entitic vol] 7.8 fL Normal 6.3-10.7 [facility] Comment on above: Performed By: #### C BC #### [address] Platelets (Bld) [#/Vol] 291 10*3/uL Normal 150-450 [facility] Comment on above: Performed By: #### C BC #### [address] RBC (Bld) [#/Vol] 3.97 10*6/uL Normal 3.60-5.00 [facility] Comment on above: Performed By: #### C BC #### [address] WBC (Bld) [#/Vol] 3.9 10*3/uL Normal 3.8-11.6 [facility] Comment on above: Performed By: #### C BC #### [address] Comprehensive Metabolic Pane miranda 03-27-2023 Albumin [Mass/Vol] 3.5 g/dL Normal 3.5-5.7 [facility] Comment on above: Performed By: #### H EPATIC, CBC, BMP, LIPASE #### [address] Albumin/Globulin [Mass ratio] 1.4 {ratio} Normal [facility] Comment on above: Performed By: #### H EPATIC, CBC, BMP, LIPASE #### [address] ALP [Catalytic activity/Vol] 91 U/L Normal 34-104 [facility] Comment on above: Performed By: #### H EPATIC, CBC, BMP, LIPASE #### [address] [place] [address] [place] ALT [Catalytic activity/Vol] 10 U/L Normal 7-52 [facility] Comment on above: Performed By: #### H EPATIC, CBC, BMP, LIPASE #### [address] Anion gap [Moles/Vol] 6.9 mmol/L Normal 6.0-15.0 [facility] Comment on above: Performed By: #### H EPATIC, CBC, BMP, LIPASE #### [address] AST [Catalytic activity/Vol] 13 U/L Normal 13-39 [facility] Comment on above: Performed By: #### H EPATIC, CBC, BMP, LIPASE #### [address] Bilirubin [Mass/Vol] 0.5 mg/dL Normal 0.3-1.0 [facility] Comment on above: Performed By: #### H EPATIC, CBC, BMP, LIPASE #### [address] Calcium [Mass/Vol] 8.6 mg/dL Normal 8.6-10.3 [facility] Comment on above: Performed By: #### H EPATIC, CBC, BMP, LIPASE #### [address] Chloride [Moles/Vol] 109 mmol/L High 98-107 [facility] Comment on above: Performed By: #### H EPATIC, CBC, BMP, LIPASE #### [address] CO2 [Moles/Vol] 28.9 mmol/L Normal 21.0-31.0 [facility] Comment on above: Performed By: #### H EPATIC, CBC, BMP, LIPASE #### [address] Creatinine [Mass/Vol] 0.72 mg/dL Normal 0.60-1.20 [facility] Comment on above: Performed By: #### H EPATIC, CBC, BMP, LIPASE #### [facility] [address] Creatinine Clr Calc Pharmacy 97.02 [facility] Comment on above: Performed By: #### H EPATIC, CBC, BMP, LIPASE #### [facility] [address] [place] [address] [place] GFR/1.73 sq M.predicted MDRD (S/P/Bld) [Vol rate/Area] mL/min/{1.73_m2} [facility] Comment on above: Performed By: #### H EPATIC, CBC, BMP, LIPASE #### [address] Globulin (S) [Mass/Vol] 2.5 g/dL [facility] Comment on above: Performed By: #### H EPATIC, CBC, BMP, LIPASE #### [address] Glucose [Mass/Vol] 104 mg/dL High 70-100 [facility] Comment on above: Result Comment: [facility] Glucose Reference Range is dependent on time and content of last meal. Glucose of more than 200 mg/dL in a nonstressed, ambulatory subject supports the diagnosis of Diabetes Mellitus. ADA recommended reference range Performed By: #### H EPATIC, CBC, BMP, LIPASE #### [address] Potassium [Moles/Vol] 3.8 mmol/L Normal 3.5-5.1 [facility] Comment on above: Performed By: #### H EPATIC, CBC, BMP, LIPASE #### [address] Protein [Mass/Vol] 6.0 g/dL Low 6.4-8.9 [facility] Comment on above: Performed By: #### H EPATIC, CBC, BMP, LIPASE #### [address] Sodium [Moles/Vol] 141 mmol/L Normal 136-145 [facility] Comment on above: Performed By: #### H EPATIC, CBC, BMP, LIPASE #### [facility] [address] Urea nitrogen [Mass/Vol] 10 mg/dL Normal 7-25 [facility] Comment on above: Performed By: #### H EPATIC, CBC, BMP, LIPASE #### [facility] [address] [id number] [facility] Lipaseon 03-27-2023 Lipase [Catalytic activity/Vol] 14.0 U/L Normal 11.0-82.0 [facility] Comment on above: Result Comment: PERF ORMED BY: [place] [address] PATHOLOGIST [employer]ILRO[employer] SIGNAL TECHNICIAN ROOSEVELT KEYES M.D. Performed By: #### H EPATIC, CBC, BMP, LIPASE #### [address] Magnesiumon 03-27-2023 Magnesium [Mass/Vol] 1.8 mg/dL Low 1.9-2.7 [facility] Comment on above: Performed By: #### H EPATIC, CBC, BMP, LIPASE #### [address] angio abdomen pelvison CT angio abdomen pelvis [facility] [place] [address] [place] [address] CT Scan Report Signed Patient: Constantino Cardoso MR#: [id number] : 1970 Acct:[id number] Age/Sex: 52 / F ADM Date: 03/26/23 Loc: Room: [address] [place] [address] Type: ADM IN Attending Dr: Raf Steward [...] Nora Benites M.D.03/26/2023 9:41 AM Dictation Location: [place] [address] Transcribed By: [facility] 03/26/23 0941 Dictated By: Nora Benites II, MD 03/26/23 0935 Signed By: 03/26/23 0941 [facility] CT angio cheston 03-26-2023 CT angio chest [facility] [place] [address] [place] [address] CT Scan Report Signed Patient: Constantino Cardoso MR#: [id number] : 1970 Acct:[id number] Age/Sex: 52 / F ADM Date: 03/26/23 Loc: Room: [address] [place] [address] Type: ADM IN Attending Dr: Raf Steward [...] Nora Benites M.D.03/26/2023 9:34 AM Dictation Location: [place] [address] Transcribed By: [facility] 03/26/2334 Dictated By: Nora Benites II, MD 03/26/2330 Signed By: 03/26/2334 [facility] Comprehensive Metabolic Pane miranda 03-26-2023 Albumin [Mass/Vol] 3.8 g/dL Normal 3.5-5.7 [facility] Comment on above: Performed By: #### P ORS #### [address] Albumin/Globulin [Mass ratio] 1.6 {ratio} Normal [facility] Comment on above: Performed By: #### P ORS #### [facility] [address] ALP [Catalytic activity/Vol] 105 U/L High 34-104 [facility] Comment on above: Performed By: #### P ORS #### [facility] [address] ALT [Catalytic activity/Vol] 11 U/L Normal 7-52 [facility] Comment on above: Performed By: #### P ORS #### [facility] [address] Anion gap [Moles/Vol] 9.7 mmol/L Normal 6.0-15.0 [facility] Comment on above: Performed By: #### P ORS #### [facility] [address] [place] [address] AST [Catalytic activity/Vol] 14 U/L Normal 13-39 [facility] Comment on above: Performed By: #### P ORS #### [facility] [address] [place] [address] Bilirubin [Mass/Vol] 0.4 mg/dL Normal 0.3-1.0 [facility] Comment on above: Performed By: #### P ORS #### [facility] [address] [place] [address] Calcium [Mass/Vol] 8.6 mg/dL Normal 8.6-10.3 [facility] Comment on above: Performed By: #### P ORS #### [facility] [address] [place] [address] Chloride [Moles/Vol] 107 mmol/L Normal 98-107 [facility] Comment on above: Performed By: #### P ORS #### [address] CO2 [Moles/Vol] 25.3 mmol/L Normal 21.0-31.0 [facility] Comment on above: Performed By: #### P ORS #### [place] [id number] [place] Creatinine [Mass/Vol] 0.76 mg/dL Normal 0.60-1.20 [facility] Comment on above: Performed By: #### P ORS #### [address] Creatinine Clr Calc Pharmacy 92.46 [facility] Comment on above: Performed By: #### P ORS #### [address] GFR/1.73 sq M.predicted MDRD (S/P/Bld) [Vol rate/Area] mL/min/{1.73_m2} [facility] Comment on above: Performed By: #### P ORS #### [address] Globulin (S) [Mass/Vol] 2.4 g/dL [facility] Comment on above: Performed By: #### P ORS #### [address] Glucose [Mass/Vol] 122 mg/dL High 70-100 [facility] Comment on above: Result Comment: [facility] Glucose Reference Range is dependent on time and content of last meal. Glucose of more than 200 mg/dL in a nonstressed, ambulatory subject supports the diagnosis of Diabetes Mellitus. ADA recommended reference range Performed By: #### P ORS #### [address] Potassium [Moles/Vol] 4.0 mmol/L Normal 3.5-5.1 [facility] Comment on above: Performed By: #### P ORS #### [address] Protein [Mass/Vol] 6.2 g/dL Low 6.4-8.9 [facility] Comment on above: Performed By: #### P ORS #### [address] Sodium [Moles/Vol] 138 mmol/L Normal 136-145 [facility] Comment on above: Performed By: #### P ORS #### [address] Urea nitrogen [Mass/Vol] 12 mg/dL Normal 7- [facility] Comment on above: Performed By: #### P ORS #### [place] [address] [place] Drug Screen,Urineon 03-26-20 23 Amphetamine Screen,Urine Negative Normal Negative [facility] Comment on above: Performed By: #### H EPATIC, CBC, BMP, LIPASE #### [address] Barbiturate Screen,Urine Negative Normal Negative [facility] Comment on above: Performed By: #### H EPATIC, CBC, BMP, LIPASE #### [address] Benzodiazepines Screen,Urine Negative Normal Negative [facility] Comment on above: Performed By: #### H EPATIC, CBC, BMP, LIPASE #### [address] Cannabinoid Screen,Urine Negative Normal Negative [facility] Comment on above: Result Comment: Thes e are unconfirmed results and should not be used for legal purposes. Drug Cut-Off Concentration: AMPH 1000 ng/mL HAWA 200 ng/mL ELSA 200 ng/mL COCM 300 ng/mL OP 300 ng/mL PCP 25 ng/mL THC 20 ng/mL PERFORMED BY: [place] [address] PATHOLOGIST [employer]ILRO[employer] SIGNAL TECHNICIAN ROOSEVELT KEYES M.D. Performed By: #### H EPATIC, CBC, BMP, LIPASE #### [address] Cocaine Screen,Urine Negative Normal Negative [facility] Comment on above: Performed By: #### H EPATIC, CBC, BMP, LIPASE #### [address] Opiate Screen,Urine Positive High Negative [facility] Comment on above: Performed By: #### H EPATIC, CBC, BMP, LIPASE #### [address] [place] [address] [facility] Phencyclidine Screen,Urine Negative Normal Negative [facility] Comment on above: Performed By: #### H EPATIC, CBC, BMP, LIPASE #### [facility] [address] [id number] [facility] echo transthoracicon [facility] echo transthoracic [facility] [address] [place] [address] [place] [address] Echocardiogram Signed Patient: Constantino Cardoso MR#: [id number] : 1970 Acct:[id number] Age/Sex: 52 / F ADM Date: 03/26/23 Loc: Room: [address] [place] [address] Type: ADM IN Attending Dr: Raf Steward MD Ordering Provider: Ron Fair MD Date of Service: 03/26/23 [facility] echo transthoracic: chest pain Copies to: MD Holly Lieberman MD, [facility] BSA: 1.9 m2 BP: 155/86 mmHg [...] 03/26/23 0909 Signed By: Holly Castro MD, [facility] 03/26/23 1148 Normal [facility] Hepatic Panelon 03-26-2023 Bilirubin,Indirect 0.3 mg/dL Normal [facility] Comment on above: Performed By: #### P ORS #### [facility] [address] Bilirubin.indirect [Mass/Vol] 0.10 mg/dL Normal 0.03-0.18 [facility] Comment on above: Performed By: #### P ORS #### [address] Lactic Acidon 03-26-2023 Lactate [Moles/Vol] 0.5 mmol/L Normal 0.5-2.2 [facility] Comment on above: Result Comment: PERF ORMED BY: [place] [address] PATHOLOGIST RAILROAD SIGNAL TECHNICIAN ROOSEVELT KEYES M.D. Performed By: #### L ACTIC, HEPATIC, LIPASE, CMP, HS TROP, MG #### [address] Lipaseon 03-26-2023 Lipase [Catalytic activity/Vol] 8.0 U/L Low 11.0-82.0 [facility] Comment on above: Result Comment: PERF ORMED BY: [place] [address] PATHOLOGIST [employer]ILRO[employer] SIGNAL TECHNICIAN ROOSEVELT KEYES M.D. Performed By: #### P ORS #### [facility] [address] [place] [address] Magnesiumon 03-26-2023 Magnesium [Mass/Vol] 1.8 mg/dL Low 1.9-2.7 [facility] Comment on above: Performed By: #### P ORS #### [place] [address] [place] Porphyrins,Stoolon 3 Porphyrins,Stool Normal [facility] Comment on above: Result Comment: See report. Scanned copy available in EMR. PERFORMED BY: [place] [address] PATHOLOGIST RAILRO[employer] SIGNAL TECHNICIAN ROOSEVELT KEYES M.D. Performed By: #### P ORS #### [address] Troponin I High Sensitivityo n 03-26-2023 Troponin I High Sensitivity 13.8 pg/mL Normal 0.0-15.0 [facility] Comment on above: Result Comment: PERF ORMED BY: [place] [address] PATHOLOGIST [employer]ILRO[employer] SIGNAL TECHNICIAN ROOSEVELT KEYES M.D. Performed By: #### H EPATIC, CBC, BMP, LIPASE #### [address] Troponin I High Sensitivity 14.1 pg/mL Normal 0.0-15.0 [facility] Comment on above: Result Comment: PERF ORMED BY: [place] [address] PATHOLOGIST RAILRO[employer] SIGNAL TECHNICIAN ROOSEVELT KEYES M.D. Performed By: #### P ORS #### [address] Alanine aminotransferase [En zymatic activity/volume] in Serum or PlasmaOrdered By: Pete Thakkar on 03-23-2023 ALT [Catalytic activity/Vol] 11 U/L 7-52 [facility] Albumin [Mass/volume] in Ser um or Plasma by Bromocresol green (BCG) dye binding methoOrdered By: Pete Thakkar on 03-23-2023 Albumin BCG dye [Mass/Vol] 4.1 g/dL 3.5-5.7 [facility] Alkaline phosphatase [Enzyma tic activity/volume] in Serum or PlasmaOrdered By: Pete Thakkar on 03-23-2023 ALP [Catalytic activity/Vol] 115 U/L 34-104 [facility] Aspartate aminotransferase [ Enzymatic activity/volume] in Serum or PlasmaOrdered By: Pete Thakkar on 03-23-2023 AST [Catalytic activity/Vol] 15 U/L 13-39 [facility] Automated erythrocytes count in urine sediment (number/area)Ordered By: Pete Thakkar on 03-23-2023 RBC Auto (Urine sed) [#/Area] 0-1 [HPF] 0-4 [facility] Automated leukocytes count i n urine sediment (number/area)Ordered By: Pete Thakkar on 03-23-2023 WBC Auto (Urine sed) [#/Area] 0-1 [HPF] 0-4 [facility] Basic Metabolic Panelon 03-05 Anion gap [Moles/Vol] 10.1 mmol/L Normal 6.0-15.0 [facility] Comment on above: Performed By: #### H EPATIC, CBC, BMP, LIPASE #### [facility] [address] [place] [address] [place] Calcium [Mass/Vol] 9.0 mg/dL Normal 8.6-10.3 [facility] Comment on above: Performed By: #### H EPATIC, CBC, BMP, LIPASE #### [facility] [address] [place] [address] [place] Chloride [Moles/Vol] 111 mmol/L High 98-107 [facility] Comment on above: Performed By: #### H EPATIC, CBC, BMP, LIPASE #### [facility] [address] [place] [id number] [place] CO2 [Moles/Vol] 24.5 mmol/L Normal 21.0-31.0 [facility] Comment on above: Performed By: #### H EPATIC, CBC, BMP, LIPASE #### [facility] [address] [place] [id number] [place] Creatinine [Mass/Vol] 0.72 mg/dL Normal 0.60-1.20 [facility] Comment on above: Performed By: #### H EPATIC, CBC, BMP, LIPASE #### [facility] [address] [place] [address] [place] Creatinine Clr Calc Pharmacy 105.27 [facility] Comment on above: Performed By: #### H EPATIC, CBC, BMP, LIPASE #### [address] GFR/1.73 sq M.predicted MDRD (S/P/Bld) [Vol rate/Area] mL/min/{1.73_m2} Normal [facility] Comment on above: Performed By: #### H EPATIC, CBC, BMP, LIPASE #### [address] Glucose [Mass/Vol] 79 mg/dL Normal 70-100 [facility] Comment on above: Result Comment: [facility] Glucose Reference Range is dependent on time and content of last meal. Glucose of more than 200 mg/dL in a nonstressed, ambulatory subject supports the diagnosis of Diabetes Mellitus. ADA recommended reference range Performed By: #### H EPATIC, CBC, BMP, LIPASE #### [address] Potassium [Moles/Vol] 3.6 mmol/L Normal 3.5-5.1 [facility] Comment on above: Performed By: #### H EPATIC, CBC, BMP, LIPASE #### [address] Sodium [Moles/Vol] 142 mmol/L Normal 136-145 [facility] Comment on above: Performed By: #### H EPATIC, CBC, BMP, LIPASE #### [address] Urea nitrogen [Mass/Vol] 24 mg/dL Normal 7-25 [facility] Comment on above: Performed By: #### H EPATIC, CBC, BMP, LIPASE #### [place] [address] [place] Basophils Auto (Bld) [#/Vol] Ordered By: Pete Thakkar on 03-23-2023 Basophils (Bld) [#/Vol] 0.1 10*3/uL 0.0-0.2 [facility] Basophils/100 WBC Auto (Bld) Ordered By: Pete Thakakr on 03-23-2023 Basophils/100 WBC (Bld) 1.0 % . [facility] Bilirubin Test strip Ql (U)O rdered By: Pete Thakkar on 03-23-2023 Bilirubin Ql (U) Negative Negative [facility] Bilirubin.direct [Mass/volum e] in Serum or PlasmaOrdered By: Pete Thakkar on 03-23-2023 Bilirubin.direct [Mass/Vol] 0.10 mg/dL 0.03-0.18 [facility] Bilirubin.total [Mass/volume ] in Serum or PlasmaOrdered By: Pete Thakkar on 03-23-2023 Bilirubin [Mass/Vol] 0.3 mg/dL 0.3-1.0 [facility] CT abdomen pelvis w conon CT abdomen pelvis w con [facility] [place] [place] [address] CT Scan Report Signed Patient: Constantino Cardoso MR#: [id number] : 1970 Acct:[id number] Age/Sex: 52 / F ADM Date: 03/23/23 Loc: ER Room: Type: [facility] ER Attending Dr: Copies to: [...] Columba Domínguez M.D.03/23/2023 7:47 AM Dictation Location: [place] [address] Transcribed By: [facility] 03/23/2347 Dictated By: Columba Domínguez MD 03/23/23 0742 Signed By: 03/23/2347 Normal [facility] Calcium [Mass/volume] in Ser um or PlasmaOrdered By: Pete Thakkar on 03-23-2023 Calcium [Mass/Vol] 9.0 mg/dL 8.6-10.3 [facility] Carbon dioxide, total [Moles /volume] in Serum or PlasmaOrdered By: Pete Thakkar on 03-23-2023 CO2 [Moles/Vol] 24.5 mmol/L 21.0-31.0 [facility] Chloride [Moles/volume] in S cristine or PlasmaOrdered By: Pete Thakkar on 03-23-2023 Chloride [Moles/Vol] 111 mmol/L 98-107 [facility] Color Auto (U)Ordered By: Shoaib Thakkar on 03-23-2023 Color (U) Yellow Yellow [facility] Complete Blood Count Auto Di ffon 03-23-2023 Basophils (Bld) [#/Vol] 0.1 10*3/uL Normal 0.0-0.2 [facility] Comment on above: Result Comment: PERF ORMED BY: [facility] [address] [place] [address] PATHOLOGIST [employer]ILRO[employer] SIGNAL TECHNICIAN ROOSEVELT KEYES M.D. Performed By: #### H EPATIC, CBC, BMP, LIPASE #### [address] Basophils/100 WBC (Bld) 1.0 % Normal . [facility] Comment on above: Performed By: #### H EPATIC, CBC, BMP, LIPASE #### [address] Eosinophils (Bld) [#/Vol] 0.3 10*3/uL Normal 0.0-0.45 [facility] Comment on above: Performed By: #### H EPATIC, CBC, BMP, LIPASE #### [address] Eosinophils/100 WBC (Bld) 5.0 % Normal . [facility] Comment on above: Performed By: #### H EPATIC, CBC, BMP, LIPASE #### [address] Erythrocyte distribution width (RBC) [Ratio] 13.6 % Normal 11.9-15.3 [facility] Comment on above: Performed By: #### H EPATIC, CBC, BMP, LIPASE #### [address] Hematocrit (Bld) [Volume fraction] 35.7 % Normal 34.0-46.4 [facility] Comment on above: Performed By: #### H EPATIC, CBC, BMP, LIPASE #### [address] Hemoglobin (Bld) [Mass/Vol] 12.0 g/dL Normal 11.8-15.4 [facility] Comment on above: Performed By: #### H EPATIC, CBC, BMP, LIPASE #### [address] Lymphocytes (Bld) [#/Vol] 2.3 10*3/uL Normal 1.00-4.8 [facility] Comment on above: Performed By: #### H EPATIC, CBC, BMP, LIPASE #### [address] Lymphocytes/100 WBC (Bld) 36.1 % Normal . [facility] Comment on above: Performed By: #### H EPATIC, CBC, BMP, LIPASE #### [address] MCH (RBC) [Entitic mass] 29.2 pg Normal 24.7-34.3 [facility] Comment on above: Performed By: #### H EPATIC, CBC, BMP, LIPASE #### [address] MCV (RBC) [Entitic vol] 86.7 fL Normal 80-100 [facility] Comment on above: Performed By: #### H EPATIC, CBC, BMP, LIPASE #### [address] Mean Corpuscular HGB Conc 33.7 g/dL Normal 32.0-35.0 [facility] Comment on above: Performed By: #### H EPATIC, CBC, BMP, LIPASE #### [address] Monocytes (Bld) [#/Vol] 0.5 10*3/uL Normal 0.0-0.8 [facility] Comment on above: Performed By: #### H EPATIC, CBC, BMP, LIPASE #### [address] Monocytes/100 WBC (Bld) 16.44 % Normal 0.00-20.00 [facility] Comment on above: Performed By: #### H EPATIC, CBC, BMP, LIPASE #### [address] Monocytes/100 WBC (Bld) 7.7 % Normal . [facility] Comment on above: Performed By: #### H EPATIC, CBC, BMP, LIPASE #### [address] Neutrophils (Bld) [#/Vol] 3.2 10*3/uL Normal 1.8-7.7 [facility] Comment on above: Performed By: #### H EPATIC, CBC, BMP, LIPASE #### [address] Neutrophils/100 WBC (Bld) 50.2 % Normal . [facility] Comment on above: Performed By: #### H EPATIC, CBC, BMP, LIPASE #### [address] NRBC% 0.1 /100{WBC} Normal 0-0.5 [facility] Comment on above: Performed By: #### H EPATIC, CBC, BMP, LIPASE #### [address] Platelet mean volume (Bld) [Entitic vol] 7.6 fL Normal 6.3-10.7 [facility] Comment on above: Performed By: #### H EPATIC, CBC, BMP, LIPASE #### [address] Platelets (Bld) [#/Vol] 357 10*3/uL Normal 150-450 [facility] Comment on above: Performed By: #### H EPATIC, CBC, BMP, LIPASE #### [address] RBC (Bld) [#/Vol] 4.12 10*6/uL Normal 3.60-5.00 [facility] Comment on above: Performed By: #### H EPATIC, CBC, BMP, LIPASE #### [address] WBC (Bld) [#/Vol] 6.3 10*3/uL Normal 3.8-11.6 [facility] Comment on above: Performed By: #### H EPATIC, CBC, BMP, LIPASE #### [address] Creatinine [Mass/volume] in Serum or PlasmaOrdered By: Pete Thakkar on 03-23-2023 Creatinine [Mass/Vol] 0.72 mg/dL 0.60-1.20 [facility] Dipstick and Microscopicon 0 03-23-2023 Appearance (U) Clear Normal Clear [facility] Comment on above: Order Comment: Name Collection Type:: Clean-Voided Midstream Performed By: #### P ORS #### [facility] [address] [place] [address] [place] Bacteria,Urine 1+ High None Seen [facility] Comment on above: Order Comment: Name Collection Type:: Clean-Voided Midstream Performed By: #### P ORS #### [facility] [address] [place] [address] [place] Bilirubin,Urine Negative Normal Negative [facility] Comment on above: Order Comment: Name Collection Type:: Clean-Voided Midstream Performed By: #### P ORS #### [facility] [address] [place] [address] [place] Color (U) Yellow Normal Yellow [facility] Comment on above: Order Comment: Name Collection Type:: Clean-Voided Midstream Performed By: #### P ORS #### [facility] [address] [place] [address] Glucose Ql (U) Normal Normal Normal [facility] Comment on above: Order Comment: Name Collection Type:: Clean-Voided Midstream Performed By: #### P ORS #### [facility] [address] [place] [address] [place] Hyaline Casts,Urine None Seen Normal 0-8 [facility] Comment on above: Order Comment: Name Collection Type:: Clean-Voided Midstream Result Comment: PERF ORMED BY: [place] [address] PATHOLOGIST RAILROAD SIGNAL TECHNICIAN ROOSEVELT KEYES M.D. Performed By: #### P ORS #### [facility] [address] [place] [address] [place] Ketones Ql (U) Negative Normal Negative [facility] Comment on above: Order Comment: Name Collection Type:: Clean-Voided Midstream Performed By: #### P ORS #### [facility] [address] [place] [address] [place] Leukocyte esterase Test strip Ql (U) Negative Normal Negative [facility] Comment on above: Order Comment: Name Collection Type:: Clean-Voided Midstream Performed By: #### P ORS #### [facility] [address] [place] [address] [place] Nitrite,Urine Negative Normal Negative [facility] Comment on above: Order Comment: Name Collection Type:: Clean-Voided Midstream Performed By: #### P ORS #### [place] [address] [place] Occult Blood,Urine Trace High Negative [facility] Comment on above: Order Comment: Name Collection Type:: Clean-Voided Midstream Result Comment: PERF ORMED BY: [place] [address] PATHOLOGIST RAILROAD SIGNAL TECHNICIAN ROOSEVELT KEYES M.D. Performed By: #### P ORS #### [address] pH (U) 5.0 [pH] Normal 5.0-9.0 [facility] Comment on above: Order Comment: Name Collection Type:: Clean-Voided Midstream Performed By: #### P ORS #### [place] [address] [place] Protein,Urine Negative Normal Negative [facility] Comment on above: Order Comment: Name Collection Type:: Clean-Voided Midstream Performed By: #### P ORS #### [facility] [address] [place] [address] [place] RBC LM.HPF (Urine sed) [#/Area] 0 /[HPF] Normal 0-4 [facility] Comment on above: Order Comment: Name Collection Type:: Clean-Voided Midstream Performed By: #### P ORS #### [facility] [address] [place] [address] [place] Specificy [place],Urine 1.048 High 1.001-1.030 [facility] Comment on above: Order Comment: Name Collection Type:: Clean-Voided Midstream Performed By: #### P ORS #### [place] [address] [place] Squamous Epithelial Cell,Urine None Seen Normal 0-2 [facility] Comment on above: Order Comment: Name Collection Type:: Clean-Voided Midstream Performed By: #### P ORS #### [facility] [address] Urobilinogen,Urine Normal Normal Normal [facility] Comment on above: Order Comment: Name Collection Type:: Clean-Voided Midstream Performed By: #### P ORS #### [facility] [address] WBC LM.HPF (Urine sed) [#/Area] 0 /[HPF] Normal 0-4 [facility] Comment on above: Order Comment: Name Collection Type:: Clean-Voided Midstream Performed By: #### P ORS #### [facility] [address] Eosinophils Auto (Bld) [#/Vo l]Ordered By: Pete Thakkar on 03-23-2023 Eosinophils (Bld) [#/Vol] 0.3 10*3/uL 0.0-0.45 [facility] Eosinophils/100 WBC Auto (Bl d)Ordered By: Pete Thakkar on 03-23-2023 Eosinophils/100 WBC (Bld) 5.0 % . [facility] Erythrocyte distribution wid th Auto (RBC) [Ratio]Ordered By: Pete Thakkar on 03-23-2023 Erythrocyte distribution width (RBC) [Ratio] 13.6 % 11.9-15.3 [facility] Globulin Calc (S) [Mass/Vol] Ordered By: Pete Thakkar on 03-23-2023 Globulin (S) [Mass/Vol] 2.9 g/dL [facility] Glucose [Mass/volume] in Ser um or PlasmaOrdered By: Pete Thakkar on 03-23-2023 Glucose [Mass/Vol] 79 mg/dL 70-100 [facility] Comment on above: ADA recommended refe rence rangeRandom Glucose Reference Range is dependent on time and content of last meal. Glucose of more than 200 mg/dL in a nonstressed, ambulatory subject supports the diagnosis of Diabetes Mellitus. Hematocrit Auto (Bld) [Volum e fraction]Ordered By: Pete Thakkar on 03-23-2023 Hematocrit (Bld) [Volume fraction] 35.7 % 34.0-46.4 [facility] Hemoglobin [Mass/volume] in BloodOrdered By: Pete Thakkar on 03-23-2023 Hemoglobin (Bld) [Mass/Vol] 12.0 g/dL 11.8-15.4 [facility] Hepatic Panelon 03-23-2023 Albumin [Mass/Vol] 4.1 g/dL Normal 3.5-5.7 [facility] Comment on above: Performed By: #### H EPATIC, CBC, BMP, LIPASE #### [facility] [address] Albumin/Globulin [Mass ratio] 1.4 {ratio} Normal [facility] Comment on above: Performed By: #### H EPATIC, CBC, BMP, LIPASE #### [facility] [address] [place] [address] ALP [Catalytic activity/Vol] 115 U/L High 34-104 [facility] Comment on above: Performed By: #### H EPATIC, CBC, BMP, LIPASE #### [facility] [address] [place] [address] ALT [Catalytic activity/Vol] 11 U/L Normal 7-52 [facility] Comment on above: Performed By: #### H EPATIC, CBC, BMP, LIPASE #### [facility] [address] [place] [address] AST [Catalytic activity/Vol] 15 U/L Normal 13-39 [facility] Comment on above: Performed By: #### H EPATIC, CBC, BMP, LIPASE #### [facility] [address] [place] [address] Bilirubin [Mass/Vol] 0.3 mg/dL Normal 0.3-1.0 [facility] Comment on above: Performed By: #### H EPATIC, CBC, BMP, LIPASE #### [facility] [address] [place] [address] [place] Bilirubin,Indirect 0.2 mg/dL Normal [facility] Comment on above: Performed By: #### H EPATIC, CBC, BMP, LIPASE #### [facility] [address] [place] [address] [place] Bilirubin.indirect [Mass/Vol] 0.10 mg/dL Normal 0.03-0.18 [facility] Comment on above: Performed By: #### H EPATIC, CBC, BMP, LIPASE #### [facility] [address] Globulin (S) [Mass/Vol] 2.9 g/dL Normal [facility] Comment on above: Performed By: #### H EPATIC, CBC, BMP, LIPASE #### [facility] [address] Protein [Mass/Vol] 7.0 g/dL Normal 6.4-8.9 [facility] Comment on above: Performed By: #### H EPATIC, CBC, BMP, LIPASE #### [address] Ketones Auto test strip (U) [Mass/Vol]Ordered By: Pete Thakkar on 03-23-2023 Ketones (U) [Mass/Vol] Negative Negative [facility] Laboratory - UrinalysisOrder ed By: Pete Thakkar on 03-23-2023 Hyaline casts LM Ql (Urine sed) None seen [LPF] 0-8 [facility] Leukocytes [#/volume] correc jun for nucleated erythrocytes in Blood by Automated counOrdered By: Pete Thakkar on 03-23-2023 WBC corrected for nucl RBC Auto (Bld) [#/Vol] 6.3 10*3/uL 3.8-11.6 [facility] Lipaseon 03-23-2023 Lipase [Catalytic activity/Vol] 32.0 U/L Normal 11.0-82.0 [facility] Comment on above: Result Comment: PERF ORMED BY: [address] [place] [address] PATHOLOGIST [employer]ILRO[employer] SIGNAL TECHNICIAN ROOSEVELT KEYES M.D. Performed By: #### H EPATIC, CBC, BMP, LIPASE #### [facility] [address] [place] [address] Lipase [Enzymatic activity/v olume] in Serum or PlasmaOrdered By: Pete Thakkar on 03-23-2023 Lipase [Catalytic activity/Vol] 32.0 U/L 11.0-82.0 [facility] Lymphocytes Auto (Bld) [#/Vo l]Ordered By: Pete Thakkar on 03-23-2023 Lymphocytes (Bld) [#/Vol] 2.3 10*3/uL 1.00-4.8 [facility] Lymphocytes/100 WBC Auto (Bl d)Ordered By: Pete Thakkar on 03-23-2023 Lymphocytes/100 WBC (Bld) 36.1 % . [facility] MCH Auto (RBC) [Entitic mass ]Ordered By: Pete Thakkar on 03-23-2023 MCH (RBC) [Entitic mass] 29.2 pg 24.7-34.3 [facility] MCHC Auto (RBC) [Mass/Vol]Or dered By: Pete Thakkar on 03-23-2023 MCHC (RBC) [Mass/Vol] 33.7 g/dL 32.0-35.0 [facility] MCV Auto (RBC) [Entitic vol] Ordered By: Ptee Thakkar on 03-23-2023 MCV (RBC) [Entitic vol] 86.7 fL 80-100 [facility] Monocyte distribution width [Entitic volume] in Blood by AutomatedOrdered By: Pete Thakkar on 03-23-2023 Monocyte distribution width Auto (Bld) [Entitic vol] 16.44 % 0.00-20.00 [facility] Monocytes Auto (Bld) [#/Vol] Ordered By: Pete Thakkar on 03-23-2023 Monocytes (Bld) [#/Vol] 0.5 10*3/uL 0.0-0.8 [facility] Monocytes/100 WBC Auto (Bld) Ordered By: Pete Thakkar on 03-23-2023 Monocytes/100 WBC (Bld) 7.7 % . [facility] Neutrophils Auto (Bld) [#/Vo l]Ordered By: Pete Thakkar on 03-23-2023 Neutrophils (Bld) [#/Vol] 3.2 10*3/uL 1.8-7.7 [facility] Neutrophils/100 WBC Auto (Bl d)Ordered By: Pete Thakkar on 03-23-2023 Neutrophils/100 WBC (Bld) 50.2 % . [facility] Nitrite Test strip Ql (U)Ord ered By: Pete Thakkar on 03-23-2023 Nitrite Ql (U) Negative Negative [facility] No Panel InformationOrdered By: Peet Thakkar on 03-23-2023 Estimated GFR (CKD-EPI) > 60.0 mL/Min [facility] Creatinine Clearance (Chem 105.27 [facility] Nucleated erythrocytes [Pres ence] in Blood by Automated countOrdered By: Pete Thakkar on 03-23-2023 Nucleated RBC Auto Ql (Bld) 0.1 /100{WBC} 0-0.5 [facility] Platelet mean volume Auto (B ld) [Entitic vol]Ordered By: Pete Thakkar on 03-23-2023 Platelet mean volume (Bld) [Entitic vol] 7.6 fL 6.3-10.7 [facility] Platelets Auto (Bld) [#/Vol] Ordered By: Pete Thakkar on 03-23-2023 Platelets (Bld) [#/Vol] 357 10*3/uL 150-450 [facility] Potassium [Moles/volume] in Serum or PlasmaOrdered By: Pete Thakkar on 03-23-2023 Potassium [Moles/Vol] 3.6 mmol/L 3.5-5.1 [facility] Protein Auto test strip (U) [Mass/Vol]Ordered By: Pete Thakkar on 03-23-2023 Protein (U) [Mass/Vol] Negative Negative [facility] Protein [Mass/volume] in Ser um or PlasmaOrdered By: Pete Thakkar on 03-23-2023 Protein [Mass/Vol] 7.0 g/dL 6.4-8.9 [facility] RBC Auto (Bld) [#/Vol]Ordere d By: Pete Thakkar on 03-23-2023 RBC (Bld) [#/Vol] 4.12 10*6/uL 3.60-5.00 [facility] Serum or plasma albumin/glob ulin mass ratioOrdered By: Pete Thakkar on 03-23-2023 Albumin/Globulin [Mass ratio] 1.4 {ratio} [facility] Serum or plasma anion gap de terminationOrdered By: Pete Thakkar on 03-23-2023 Anion gap [Moles/Vol] 10.1 mmol/L 6.0-15.0 [facility] Serum or plasma non-glucuron idated bilirubin measurement (mass/volume)Ordered By: Pete Thakkar on 03-23-2023 Bilirubin.indirect [Mass/Vol] 0.2 mg/dL [facility] Sodium [Moles/volume] in Ser um or PlasmaOrdered By: Pete Thakkar on 03-23-2023 Sodium [Moles/Vol] 142 mmol/L 136-145 [facility] Specific gravity Auto test s trip (U) [Rel density]Ordered By: Ptee Thakkar on 03-23-2023 Specific gravity (U) [Rel density] 1.048 1.001-1.030 [facility] Squamous epithelial cells de tection in urine sediment by light microscopyOrdered By: Pete Thakkar on 03-23-2023 Epithelial cells.squamous LM Ql (Urine sed) None seen [HPF] 0-2 [facility] Troponin I High Sensitivityo n 03-23-2023 Troponin I High Sensitivity 12.2 pg/mL Normal 0.0-15.0 [facility] Comment on above: Result Comment: PERF ORMED BY: [place] [address] PATHOLOGIST [employer]ILRO[employer] SIGNAL TECHNICIAN ROOSEVELT KEYES M.D. Performed By: #### H S TROP #### [address] Troponin I.cardiac [Mass/vol ume] in Serum or Plasma by Detection limit <= 0.01 ng/Ordered By: Pete Thakkar on 03-23-2023 Troponin I.cardiac DL <= 0.01 ng/mL [Mass/Vol] 12.2 pg/mL 0.0-15.0 [facility] Urea nitrogen [Mass/volume] in Serum or PlasmaOrdered By: Pete Thakkar on 03-23-2023 Urea nitrogen [Mass/Vol] 24 mg/dL 7-25 [facility] Urine bacteria detection by automated methodOrdered By: Pete Thakkar on 03-23-2023 Bacteria Auto Ql (U) 1+ None Seen [facility] Urine clarity by refractomet ry automatedOrdered By: Pete Thakkar on 03-23-2023 Clarity Refractometry automated (U) Clear Clear [facility] Urine glucose measurement by automated test strip (mass/volume)Ordered By: Pete Thakkar on 03-23-2023 Glucose Auto test strip (U) [Mass/Vol] Normal mg/dL Normal [facility] Urine hemoglobin detection b y automated test stripOrdered By: Pete Thakkar on 03-23-2023 Hemoglobin Auto test strip Ql (U) Trace Negative [facility] Urine leukocyte esterase det ection by automated test stripOrdered By: Pete Thakkar on 03-23-2023 Leukocyte esterase Auto test strip Ql (U) Negative Negative [facility] Urobilinogen Auto test strip (U) [Mass/Vol]Ordered By: Pete Thakkar on 03-23-2023 Urobilinogen (U) [Mass/Vol] Normal mg/dL Normal [facility] WBC Auto (Bld) [#/Vol]Ordere d By: Pete Thakkar on 03-23-2023 WBC (Bld) [#/Vol] 6.3 10*3/uL 3.8-11.6 [facility] pH Auto test strip (U)Ordere d By: Pete Thakkar on 03-23-2023 pH (U) 5.0 [pH] 5.0-9.0 [facility] Discharge Instructionson Discharge Instructions [id number]#[id number]:127 [facility] Comment on above: Other Comment: wrong folder Prescriptions/Work Noteson 0 03-03-2023 Prescriptions/Work Notes [id number]#[id number]:127 [facility] Consent for Treatmenton 02-03 Consent for Treatment [id number]#1.00CD:127 [facility] Discharge Instructionson Discharge Instructions [id number]#[id number]:127 Normal [facility] ED Clinical Summaryon 2022 ED Clinical Summary (Inserted Image. Kristin ble to display) [address] [address] ED Clinical Summary Person Information Name: CONSTANTINO CARDOSO/NewKarolyn Age: 52 Years : 1970 Sex: Female Language: Mauritanian PCP: JUDI YOUSSEF CNP Marital Status: Phone: [phone] MRN: Visit Id: Visit Reason: Wrist pain-swelling; [...] 02/19/2023 01:41:18 ADDRESS: [address] [facility] [phone] PHYS DOC NOTES: MEDICAL INFORMATION: Prescriptions Given: New Medications [id number], [address], [place] [id number], [phone] naproxen (Naprosyn 500 mg Tab) 1 Tablets [...] With: Address: When: JUDI YOUSSEF [address] [facility] [address] [place] [phone] Business (1) In 3 days 02/22/2023 Comments: Take the pain medication as prescribed as needed for pain. Please follow-up with your primary care doctor in the next 2 to 3 days for further evaluation management. Please return to the ED for any new or worsening symptoms or DIAGNOSIS: Right wrist sprain Normal [facility] ED Note-Physicianon 02-20-20 ED Note-Physician Basic Information Time Seen: kaye Franklinwilliam Ibrahim 02/19/2023 00:51 Chief Complaint states fell yesterday injuring right wrist. was seen at [facility] splint in place. states pain radiating up the arm. taking motrin and tylenol History of Present Illness Patient is a 52-year-old female with past medical history of hypertension gastroparesis presenting to the ED for evaluation of right arm pain. Patient had a fall yesterday was seen at [facility] and was told it was [...] and Complexity of Problems Differential Diagnosis: [] [facility] Data External documents reviewed: [] [...] and elbow are obtained. Patient is given [place] in the ED for pain. X-rays do [...] Wrist 3+ Views Right Medications Administered Given [place] 5/325 Tab, 1 tab(s), Oral Disposition Plan Discharge Prescription List Prescriptions Naprosyn 500 mg Tab, 500 mg= 1 tab(s), Oral, BID, PRN Follow-up With When Contact Information JUDI YOUSSEF In 3 days 02/22/2023 EDT [address] [place] [address] [phone] Business (1) Additional Instructions: Take the pain [...] (03/02/2019), Cholecystectomy, Hernia repair, Hysterectomy. Medications Inpatient [place] 5/325 Tab, 1 tab(s), Oral, Once Home albuterol HFA 90 mcg/inh MDI, 2 pu (more content not included)... Normal [facility] Comment on above: Result Comment: Elec tronically [...] safe for you. General instructions ? Take ifsz-hec-bzzptyo and prescription medicines only as told by [...] it gets (more content not included)... Normal [facility] ED Patient Summaryon 023 ED Patient Summary (Inserted Image. Kristin ble to display) [address] [address] Patient Discharge Instructions Person Information Name: CONSTANTINO CARDOSO Age: 52 Years Arrival Date: 02/19/2023 00:48:45 Discharge Diagnosis: Right wrist sprain Primary Care Physician: JUDI YOUSSEF CNP Provider Information Primary Provider: Zabrina Patton DO Advanced Tape Coater:None The exam and treatment you received in the Emergency Department were for an urgent problem and are not intended as complete care. It is important that you follow up with a doctor, nurse practitioner, or physician?s sales and marketing assistant for ongoing care. If your symptoms [...] Address: When: JUDI YOUSSEF [address] [place] [address] [phone] Business (1) In 3 days 02/22/2023 Comments: [...] opioids can be used to help relieve rvokxgdg-vk-wyzlmg pain and are often prescribed following a [...] the ris (more content not included)... Normal [facility] XR Elbow 3+ Views Righton XR Elbow [...] mGy = na DAP = na Normal [facility] XR Wrist 3+ Views Righton XR Wrist [...] mGy = na DAP = na Normal [facility] Activated partial thrombopla stin time (aPTT) in platelet poor plasma by coagulation aOrdered By: Conner Griffith on 02-15-2023 aPTT Coag (PPP) [Time] 37.0 s 25.1-36.5 [facility] Alanine aminotransferase [En zymatic activity/volume] in Serum or PlasmaOrdered By: Conner Griffith on 02-15-2023 ALT [Catalytic activity/Vol] 13 U/L 7-52 [facility] Albumin [Mass/volume] in Ser um or Plasma by Bromocresol green (BCG) dye binding methoOrdered By: Conner Griffith on 02-15-2023 Albumin BCG dye [Mass/Vol] 4.3 g/dL 3.5-5.7 [facility] Alkaline phosphatase [Enzyma tic activity/volume] in Serum or PlasmaOrdered By: Conner Griffith on 02-15-2023 ALP [Catalytic activity/Vol] 124 U/L 34-104 [facility] Aspartate aminotransferase [ Enzymatic activity/volume] in Serum or PlasmaOrdered By: Conner Griffith on 02-15-2023 AST [Catalytic activity/Vol] 15 U/L 13-39 [facility] Basic Metabolic Panelon 02-03 Anion gap [Moles/Vol] 12.6 mmol/L Normal 6.0-15.0 [facility] Comment on above: Performed By: #### H EPATIC, CBC, BMP, LIPASE #### [facility] [address] Calcium [Mass/Vol] 9.3 mg/dL Normal 8.6-10.3 [facility] Comment on above: Performed By: #### H EPATIC, CBC, BMP, LIPASE #### [facility] [address] [place] [address] [place] Chloride [Moles/Vol] 106 mmol/L Normal 98-107 [facility] Comment on above: Performed By: #### H EPATIC, CBC, BMP, LIPASE #### [facility] [address] [place] [address] [place] CO2 [Moles/Vol] 25.3 mmol/L Normal 21.0-31.0 [facility] Comment on above: Performed By: #### H EPATIC, CBC, BMP, LIPASE #### [facility] [address] Creatinine [Mass/Vol] 0.77 mg/dL Normal 0.60-1.20 [facility] Comment on above: Performed By: #### H EPATIC, CBC, BMP, LIPASE #### [facility] [address] [place] [address] [place] Creatinine Clr Calc Pharmacy 98.01 [facility] Comment on above: Performed By: #### H EPATIC, CBC, BMP, LIPASE #### [facility] [address] [place] [address] [place] GFR/1.73 sq M.predicted MDRD (S/P/Bld) [Vol rate/Area] mL/min/{1.73_m2} [facility] Comment on above: Performed By: #### H EPATIC, CBC, BMP, LIPASE #### [facility] [address] Glucose [Mass/Vol] 94 mg/dL Normal 70-100 [facility] Comment on above: Result Comment: [place] Glucose Reference Range is dependent on time and content of last meal. Glucose of more than 200 mg/dL in a nonstressed, ambulatory subject supports the diagnosis of Diabetes Mellitus. ADA recommended reference range Performed By: #### H EPATIC, CBC, BMP, LIPASE #### [facility] [address] [place] [address] [place] Potassium [Moles/Vol] 3.9 mmol/L Normal 3.5-5.1 [facility] Comment on above: Performed By: #### H EPATIC, CBC, BMP, LIPASE #### [facility] [address] [place] [address] [place] Sodium [Moles/Vol] 140 mmol/L Normal 136-145 [facility] Comment on above: Performed By: #### H EPATIC, CBC, BMP, LIPASE #### [facility] [address] [place] [address] [place] Urea nitrogen [Mass/Vol] 14 mg/dL Normal 7-25 [facility] Comment on above: Performed By: #### H EPATIC, CBC, BMP, LIPASE #### [facility] [address] [place] [address] [place] Basophils Auto (Bld) [#/Vol] Ordered By: Conner Griffith on 02-15-2023 Basophils (Bld) [#/Vol] 0.0 10*3/uL 0.0-0.2 [facility] Basophils/100 WBC Auto (Bld) Ordered By: Conner Griffith on 02-15-2023 Basophils/100 WBC (Bld) 0.6 % . [facility] Bilirubin.direct [Mass/volum e] in Serum or PlasmaOrdered By: Conner Griffith on 02-15-2023 Bilirubin.direct [Mass/Vol] 0.00 mg/dL 0.03-0.18 [facility] Comment on above: If the DBIL is less than 0.1, IBIL is not able to becalculated. Bilirubin.total [Mass/volume ] in Serum or PlasmaOrdered By: Conner Griffith on 02-15-2023 Bilirubin [Mass/Vol] 0.4 mg/dL 0.3-1.0 [facility] CT abdomen pelvis w conon CT abdomen pelvis w con [facility] [place] [address] [place] [address] CT Scan Report Signed Patient: Constantino Cardoso MR#: [id number] : 1970 Acct:[id number] Age/Sex: 52 / F ADM Date: 02/15/23 Loc: ER Room: Type: [facility] ER Attending Dr: Copies to: [...] Columba Domínguez M.D.02/15/2023 9:56 AM Dictation Location: [place] [address] Transcribed By: [facility] 02/15/23 0956 Dictated By: Columba Domínguez MD 02/15/23 0943 Signed By: 02/15/23 0956 Normal [facility] Calcium [Mass/volume] in Ser um or PlasmaOrdered By: Conner Griffith on 02-15-2023 Calcium [Mass/Vol] 9.3 mg/dL 8.6-10.3 [facility] Carbon dioxide, total [Moles /volume] in Serum or PlasmaOrdered By: Conner Griffith on 02-15-2023 CO2 [Moles/Vol] 25.3 mmol/L 21.0-31.0 [facility] Chloride [Moles/volume] in S cristine or PlasmaOrdered By: Conner Griffith on 02-15-2023 Chloride [Moles/Vol] 106 mmol/L 98-107 [facility] Complete Blood Count Auto Di ffon 02-15-2023 Basophils (Bld) [#/Vol] 0.0 10*3/uL Normal 0.0-0.2 [facility] Comment on above: Result Comment: PERF ORMED BY: [place] [address] PATHOLOGIST [employer]ILRO[employer] SIGNAL TECHNICIAN ROOSEVELT KEYES M.D. Performed By: #### P ORS #### [address] Basophils/100 WBC (Bld) 0.6 % Normal . [facility] Comment on above: Performed By: #### P ORS #### [address] Eosinophils (Bld) [#/Vol] 0.2 10*3/uL Normal 0.0-0.45 [facility] Comment on above: Performed By: #### P ORS #### [address] Eosinophils/100 WBC (Bld) 4.0 % Normal . [facility] Comment on above: Performed By: #### P ORS #### [address] Erythrocyte distribution width (RBC) [Ratio] 13.5 % Normal 11.9-15.3 [facility] Comment on above: Performed By: #### P ORS #### [address] Hematocrit (Bld) [Volume fraction] 38.4 % Normal 34.0-46.4 [facility] Comment on above: Performed By: #### P ORS #### [address] Hemoglobin (Bld) [Mass/Vol] 13.0 g/dL Normal 11.8-15.4 [facility] Comment on above: Performed By: #### P ORS #### [address] Lymphocytes (Bld) [#/Vol] 1.8 10*3/uL Normal 1.00-4.8 [facility] Comment on above: Performed By: #### P ORS #### [address] Lymphocytes/100 WBC (Bld) 33.8 % Normal . [facility] Comment on above: Performed By: #### P ORS #### [address] MCH (RBC) [Entitic mass] 29.4 pg Normal 24.7-34.3 [facility] Comment on above: Performed By: #### P ORS #### [address] MCV (RBC) [Entitic vol] 86.8 fL Normal 80-100 [facility] Comment on above: Performed By: #### P ORS #### [address] Mean Corpuscular HGB Conc 33.8 g/dL Normal 32.0-35.0 [facility] Comment on above: Performed By: #### P ORS #### [address] Monocytes (Bld) [#/Vol] 0.3 10*3/uL Normal 0.0-0.8 [facility] Comment on above: Performed By: #### P ORS #### [address] Monocytes/100 WBC (Bld) 18.21 % Normal 0.00-20.00 [facility] Comment on above: Performed By: #### P ORS #### [address] Monocytes/100 WBC (Bld) 4.8 % Normal . [facility] Comment on above: Performed By: #### P ORS #### [address] Neutrophils (Bld) [#/Vol] 3.0 10*3/uL Normal 1.8-7.7 [facility] Comment on above: Performed By: #### P ORS #### [address] Neutrophils/100 WBC (Bld) 56.8 % Normal . [facility] Comment on above: Performed By: #### P ORS #### [facility] [address] [place] [address] NRBC% 0.2 /100{WBC} Normal 0-0.5 [facility] Comment on above: Performed By: #### P ORS #### [address] Platelet mean volume (Bld) [Entitic vol] 7.3 fL Normal 6.3-10.7 [facility] Comment on above: Performed By: #### P ORS #### [facility] [address] [place] [address] Platelets (Bld) [#/Vol] 385 10*3/uL Normal 150-450 [facility] Comment on above: Performed By: #### P ORS #### [facility] [address] [place] [address] RBC (Bld) [#/Vol] 4.43 10*6/uL Normal 3.60-5.00 [facility] Comment on above: Performed By: #### P ORS #### [facility] [address] [place] [address] WBC (Bld) [#/Vol] 5.2 10*3/uL Normal 3.8-11.6 [facility] Comment on above: Performed By: #### P ORS #### [address] Creatinine [Mass/volume] in Serum or PlasmaOrdered By: Conner Griffith on 02-15-2023 Creatinine [Mass/Vol] 0.77 mg/dL 0.60-1.20 [facility] Eosinophils Auto (Bld) [#/Vo l]Ordered By: Conner Griffith on 02-15-2023 Eosinophils (Bld) [#/Vol] 0.2 10*3/uL 0.0-0.45 [facility] Eosinophils/100 WBC Auto (Bl d)Ordered By: Conner Griffith on 02-15-2023 Eosinophils/100 WBC (Bld) 4.0 % . [facility] Erythrocyte distribution wid th Auto (RBC) [Ratio]Ordered By: Conner Griffith on 02-15-2023 Erythrocyte distribution width (RBC) [Ratio] 13.5 % 11.9-15.3 [facility] Globulin Calc (S) [Mass/Vol] Ordered By: Conner Griffith on 02-15-2023 Globulin (S) [Mass/Vol] 3.0 g/dL [facility] Glucose [Mass/volume] in Ser um or PlasmaOrdered By: Conner Griffith on 02-15-2023 Glucose [Mass/Vol] 94 mg/dL 70-100 [facility] Comment on above: ADA recommended refe rence rangeRandom Glucose Reference Range is dependent on time and content of last meal. Glucose of more than 200 mg/dL in a nonstressed, ambulatory subject supports the diagnosis of Diabetes Mellitus. Hematocrit Auto (Bld) [Volum e fraction]Ordered By: Conner Griffith on 02-15-2023 Hematocrit (Bld) [Volume fraction] 38.4 % 34.0-46.4 [facility] Hemoglobin [Mass/volume] in BloodOrdered By: Conner Griffith on 02-15-2023 Hemoglobin (Bld) [Mass/Vol] 13.0 g/dL 11.8-15.4 [facility] Hepatic Panelon 02-15-2023 Albumin [Mass/Vol] 4.3 g/dL Normal 3.5-5.7 [facility] Comment on above: Performed By: #### P ORS #### [facility] [address] [place] [address] [place] Albumin/Globulin [Mass ratio] 1.4 {ratio} Normal [facility] Comment on above: Performed By: #### P ORS #### [facility] [address] [place] [address] [place] ALP [Catalytic activity/Vol] 124 U/L High 34-104 [facility] Comment on above: Performed By: #### P ORS #### [facility] [address] [place] [address] ALT [Catalytic activity/Vol] 13 U/L Normal 7-52 [facility] Comment on above: Performed By: #### P ORS #### [address] AST [Catalytic activity/Vol] 15 U/L Normal 13-39 [facility] Comment on above: Performed By: #### P ORS #### [address] Bilirubin [Mass/Vol] 0.4 mg/dL Normal 0.3-1.0 [facility] Comment on above: Performed By: #### P ORS #### [address] Bilirubin,Indirect 0.4 mg/dL Normal [facility] Comment on above: Performed By: #### P ORS #### [address] Bilirubin.indirect [Mass/Vol] 0.00 mg/dL Low 0.03-0.18 [facility] Comment on above: Result Comment: If t he DBIL is less than 0.1, IBIL is not able to be calculated. Performed By: #### P ORS #### [address] Globulin (S) [Mass/Vol] 3.0 g/dL Normal [facility] Comment on above: Performed By: #### P ORS #### [address] Protein [Mass/Vol] 7.3 g/dL Normal 6.4-8.9 [facility] Comment on above: Performed By: #### P ORS #### [address] Laboratory - CoagulationOrde red By: Conner Griffith on 02-15-2023 PT Coag (PPP) [Time] 11.7 s 9.0-12.9 [facility] Leukocytes [#/volume] correc jun for nucleated erythrocytes in Blood by Automated counOrdered By: Conner Griffith on 02-15-2023 WBC corrected for nucl RBC Auto (Bld) [#/Vol] 5.2 10*3/uL 3.8-11.6 [facility] Lipaseon 02-15-2023 Lipase [Catalytic activity/Vol] 19.0 U/L Normal 11.0-82.0 [facility] Comment on above: Result Comment: PERF ORMED BY: [facility] [address] [place] [address] PATHOLOGIST [employer] SIGNAL TECHNICIAN ROOSEVELT KEYES M.D. Performed By: #### H EPATIC, CBC, BMP, LIPASE #### [facility] [address] Lipase [Enzymatic activity/v olume] in Serum or PlasmaOrdered By: Conner Griffith on 02-15-2023 Lipase [Catalytic activity/Vol] 19.0 U/L 11.0-82.0 [facility] Lymphocytes Auto (Bld) [#/Vo l]Ordered By: Conner Griffith on 02-15-2023 Lymphocytes (Bld) [#/Vol] 1.8 10*3/uL 1.00-4.8 [facility] Lymphocytes/100 WBC Auto (Bl d)Ordered By: Conner Griffith on 02-15-2023 Lymphocytes/100 WBC (Bld) 33.8 % . [facility] MCH Auto (RBC) [Entitic mass ]Ordered By: Conner Griffith on 02-15-2023 MCH (RBC) [Entitic mass] 29.4 pg 24.7-34.3 [facility] MCHC Auto (RBC) [Mass/Vol]Or dered By: Conner Griffith on 02-15-2023 MCHC (RBC) [Mass/Vol] 33.8 g/dL 32.0-35.0 [facility] MCV Auto (RBC) [Entitic vol] Ordered By: Conner Griffith on 02-15-2023 MCV (RBC) [Entitic vol] 86.8 fL 80-100 [facility] Monocyte distribution width [Entitic volume] in Blood by AutomatedOrdered By: Conner Griffith on 02-15-2023 Monocyte distribution width Auto (Bld) [Entitic vol] 18.21 % 0.00-20.00 [facility] Monocytes Auto (Bld) [#/Vol] Ordered By: Conner Griffith on 02-15-2023 Monocytes (Bld) [#/Vol] 0.3 10*3/uL 0.0-0.8 [facility] Monocytes/100 WBC Auto (Bld) Ordered By: Conner Griffith on 02-15-2023 Monocytes/100 WBC (Bld) 4.8 % . [facility] Neutrophils Auto (Bld) [#/Vo l]Ordered By: Conner Griffith on 02-15-2023 Neutrophils (Bld) [#/Vol] 3.0 10*3/uL 1.8-7.7 [facility] Neutrophils/100 WBC Auto (Bl d)Ordered By: Conner Griffith on 02-15-2023 Neutrophils/100 WBC (Bld) 56.8 % . [facility] No Panel InformationOrdered By: Conner Griffith on 02-15-2023 Estimated GFR (CKD-EPI) > 60.0 mL/Min [facility] Creatinine Clearance (Chem 98.01 [facility] Nucleated erythrocytes [Pres ence] in Blood by Automated countOrdered By: Conner Griffith on 02-15-2023 Nucleated RBC Auto Ql (Bld) 0.2 /100{WBC} 0-0.5 [facility] Partial Thromboplastin Timeo n 02-15-2023 aPTT Coag (Bld) [Time] 37.0 s High 25.1-36.5 [facility] Comment on above: Result Comment: PERF ORMED BY: [place] [address] PATHOLOGIST [employer]ILRO[employer] SIGNAL TECHNICIAN ROOSEVELT KEYES M.D. Performed By: #### P ORS #### [address] Platelet mean volume Auto (B ld) [Entitic vol]Ordered By: Conner Griffith on 02-15-2023 Platelet mean volume (Bld) [Entitic vol] 7.3 fL 6.3-10.7 [facility] Platelet poor plasma interna tional normalized ratio (INR) by coagulation assay (relatOrdered By: Conner Griffith on 02-15-2023 INR Coag (PPP) [Relative time] 1.0 {INR} [facility] Comment on above: INR Therapeutic Rang [...] 02-15-2023 Platelets (Bld) [#/Vol] 385 10*3/uL 150-450 [facility] Potassium [Moles/volume] in Serum or PlasmaOrdered By: Conner Griffith on 02-15-2023 Potassium [Moles/Vol] 3.9 mmol/L 3.5-5.1 [facility] Protein [Mass/volume] in Ser um or PlasmaOrdered By: Conner Griffith on 02-15-2023 Protein [Mass/Vol] 7.3 g/dL 6.4-8.9 [facility] Prothrombin Time INRon 02-15 INR Coag (PPP) [Relative time] 1.0 {INR} Normal [facility] Comment on above: Result Comment: INR [...] 4.5 Performed By: #### P ORS #### [address] PT Coag (PPP) [Time] 11.7 s Normal 9.0-12.9 [facility] Comment on above: Performed By: #### P ORS #### [facility] [address] [place] [id number] [facility] RBC Auto (Bld) [#/Vol]Ordere d By: Conner Griffith on 02-15-2023 RBC (Bld) [#/Vol] 4.43 10*6/uL 3.60-5.00 [facility] Serum or plasma albumin/glob ulin mass ratioOrdered By: Conner Griffith on 02-15-2023 Albumin/Globulin [Mass ratio] 1.4 {ratio} [facility] Serum or plasma anion gap de terminationOrdered By: Conner Griffith on 02-15-2023 Anion gap [Moles/Vol] 12.6 mmol/L 6.0-15.0 [facility] Serum or plasma non-glucuron idated bilirubin measurement (mass/volume)Ordered By: Conner Griffith on 02-15-2023 Bilirubin.indirect [Mass/Vol] 0.4 mg/dL [facility] Sodium [Moles/volume] in Ser um or PlasmaOrdered By: Conner Griffith on 02-15-2023 Sodium [Moles/Vol] 140 mmol/L 136-145 [facility] Urea nitrogen [Mass/volume] in Serum or PlasmaOrdered By: Conner Griffith on 02-15-2023 Urea nitrogen [Mass/Vol] 14 mg/dL 7-25 [facility] WBC Auto (Bld) [#/Vol]Ordere d By: Conner Griffith on 02-15-2023 WBC (Bld) [#/Vol] 5.2 10*3/uL 3.8-11.6 [facility] MG MAMM SCREEN 3D MACARIO CADon 11-30-2022 MG MAMM SCREEN 3D MACARIO CAD Normal [facility] ER URINE PROFILEon 3 Bilirubin Ql (U) Negative Normal NEGATIVE [facility] Comment on above: Performed By: #### E RUR ####[facility] [address] [place], [place] [address]DfNeo Tadeo Haja Clarity (U) CLEAR Normal CLEAR [facility] Comment on above: Performed By: #### E RUR ####[facility] [address] [place] [address]Dr. Tadeo Smyth Color (U) YELLOW Normal YELLOW [facility] Comment on above: Performed By: #### E RUR ####[facility] [address] [place], [place] [address]Dr. Tadeo Smyth ERUAHD A micrscopic examina tion will be performed if indicated. Normal [facility] Comment on above: Performed By: #### E RUR ####[facility] [address] [place], [place] [address]Dr. Tadeo Smyth Glucose Ql (U) Negative Normal NEGATIVE [facility] Comment on above: Performed By: #### E RUR ####[facility] [address] [place], [place] [address]Dr. Tadeo Smyth Hemoglobin Ql (U) TRACE-INTACT Abnormal NEGATIVE [facility] Comment on above: Performed By: #### E RUR ####[facility] [address] [place], [place] [address]Dr. Tadeo Smyth Ketones Ql (U) Negative Normal NEGATIVE [facility] Comment on above: Performed By: #### E RUR ####[facility] [address] [place], [place] [address]Dr. Tadeo Smyth LEUKOCYTES Negative Normal NEGATIVE [facility] Comment on above: Performed By: #### E RUR ####[facility] [address] [place], [place] [address]Dr. Tadeo Smyth Nitrite Ql (U) Negative Normal NEGATIVE [facility] Comment on above: Performed By: #### E RUR ####[facility] [address] [place], [place] [address]Dr. Tadeo Smyth pH (U) 6.0 [pH] Normal 5-9 [facility] Comment on above: Performed By: #### E RUR ####[facility] [address] [place], [place] [address]Dr. Tadeo Smyth SPEC GRAVITY >=1.030 Abnormal 1.005-<=1.0 25 [facility] Comment on above: Performed By: #### E RUR ####[facility] [address] [place] [address]Dr. Tadeo Smyth UA PROTEIN Negative Normal NEGATIVE/ TRACE [facility] Comment on above: Performed By: #### E RUR ####[facility] [address] [place], [place] [address]Dr. Margotnicole Smyth UR MICRO IND NOT INDICATED Normal [facility] Comment on above: Performed By: #### E RUR ####[facility] [address] [place], [place] [address]Dr. Margotnicole Smyth Urobilinogen Qn (U) 0.2 {Benito'U}/dL Normal 0.2 - 1. 0 [facility] Comment on above: Performed By: #### E RUR ####[facility] [address] [place], [place] [address]Dr. Tadeo Smyth XR ABD FLAT UP_PA Kasey 11-28 XR ABD FLAT UP_PA CH Normal [facility] AMYLASEon 11-27-2022 Amylase [Catalytic activity/Vol] 63 U/L Normal 25-115 [facility] Comment on above: Performed By: #### L IPA, VIJI, CMP ####[facility] [address] [place], [place] [address]Dr. Tadeo Smyth CBC AUTO DIFFon 11-27-2022 BASO # 0.0 103/ul Normal 0.0-0.1 [facility] Comment on above: Performed By: #### C BC ####[facility] [address] [place], [place] [address]Dr. Tadeo Smyth Basophils/100 WBC (Bld) 0.4 % Normal 0.2-2.0 [facility] Comment on above: Performed By: #### C BC ####[facility] [address] [place], [place] [address]Dr. Tadeo Smyth EO # 0.2 103/ul Normal 0.0-0.7 [facility] Comment on above: Performed By: #### C BC ####[facility] S[address] [place], [place] [address]Dr. Tadeo Smyth Eosinophils/100 WBC (Bld) 2.8 % Normal 0.9-7.0 [facility] Comment on above: Performed By: #### C BC ####[facility] [address] [place] [address]Dr. Tadeo Smyth Erythrocyte distribution width (RBC) [Ratio] 13.2 % Normal 11.0-15.0 [facility] Comment on above: Performed By: #### C BC ####[facility] [address] [place], [place] [address]Dr. Tadeo Smyth Hematocrit (Bld) [Volume fraction] 42.6 % Normal 36.0-48.0 [facility] Comment on above: Performed By: #### C BC ####[facility] [address] [place], [place] [address]Dr. Tadeo Smyth Hemoglobin (Bld) [Mass/Vol] 13.6 g/dL Normal 12.0-16.0 [facility] Comment on above: Performed By: #### C BC ####[facility] [address] [place], [place] [address]Dr. Tadeo Smyth IG # 0.02 10e3/ul Normal 0.00-0.03 [facility] Comment on above: Performed By: #### C BC ####[facility] [address] [place], [place] [address]Dr. Tadeo Smyth IG % 0.3 % Normal 0.0-0.5 [facility] Comment on above: Performed By: #### C BC ####[facility] [address] [place], [place] [address]Dr. Tadeo Smyth LYMPH # 2.2 103/ul Normal 1.2-3.8 [facility] Comment on above: Performed By: #### C BC ####[facility] [address] [place], [place] [address]Dr. Tadeo Smyth Lymphocytes/100 WBC (Bld) 32.1 % Normal 20.5-60.0 [facility] Comment on above: Performed By: #### C BC ####[facility] [address] [place], [place] [address]Dr. Tadeo Smyth MANUAL DIFF REQ NO Normal [facility] Comment on above: Performed By: #### C BC ####[facility] [address] [place] [id number]. Tadeo Haja MCH (RBC) [Entitic mass] 29.6 pg Normal 26.7-34.0 [facility] Comment on above: Performed By: #### C BC ####[facility] [address] [place] [address]Dr. Tadeo Haja MCHC (RBC) [Mass/Vol] 31.9 g/dL Normal 29.9-35.2 [facility] Comment on above: Performed By: #### C BC ####[facility] [address] [place] [address]Dr. Tadeo Smyth MCV (RBC) [Entitic vol] 92.6 fL Normal 81.0-99.0 [facility] Comment on above: Performed By: #### C BC ####[facility] [address] [place], [place] [address]Dr. Tadeo Smyth MONO # 0.2 103/ul Critically low 0.3-0.8 [facility] Comment on above: Performed By: #### C BC ####[facility] [address] [place], [place] [address]Dr. Tadeo Smyth Monocytes/100 WBC (Bld) 3.2 % Normal 1.7-12.0 [facility] Comment on above: Performed By: #### C BC ####[facility] [address] [place], [place] [address]DrNeo Smyth NEUT # 4.2 103/ul Normal 1.4-6.5 [facility] Comment on above: Performed By: #### C BC ####[facility] [address] [place], [place] [address]DrNeo Smyth Neutrophils/100 WBC (Bld) 61.2 % Normal 43.0-75.0 [facility] Comment on above: Performed By: #### C BC ####[facility] [address] [place], [place] [address]DrNeo Smyth Platelet mean volume (Bld) [Entitic vol] 9.0 fL Critically low 9.5-13.5 [facility] Comment on above: Performed By: #### C BC ####[facility] [address] [place] [address]Dr. Tadeo Smyth PLT 392 103/ul Normal 150-450 [facility] Comment on above: Performed By: #### C BC ####[facility] [address] [place] [address]Dr. Tadeo Smyth RBC 4.60 106/ul Normal 4.20-5.40 [facility] Comment on above: Performed By: #### C BC ####[facility] [address] [place] [address]Dr. Tadeo Smyth WBC 6.9 103/ul Normal 4.0-11.0 [facility] Comment on above: Performed By: #### C BC ####[facility] [address] [place], [place] [address]Dr. Tadeo Smyth LIPASEon 11-27-2022 Lipase [Catalytic activity/Vol] 100.0 U/L Normal 73.0-393.0 [facility] Comment on above: Performed By: #### L VIJI HALL, CMP ####[facility] [address] [place], [place] [address]Dr. Tadeo Smyth PROF 14(COMP METB)on 023 Albumin [Mass/Vol] 3.5 g/dL Normal 3.4-5.0 [facility] Comment on above: Performed By: #### L VIJI HALL, CMP ####[facility] [address] [place] [address]Dr. Tadeo Smyth Albumin/Globulin [Mass ratio] 0.9 {ratio} Normal [facility] Comment on above: Performed By: #### L VIJI HALL, CMP ####[facility] [address] [place], [place] [address]Dr. Tadoe Smyth ALP [Catalytic activity/Vol] 166 U/L Critically high 46-116 [facility] Comment on above: Performed By: #### L VIJI HALL, CMP ####[facility] [address] [place], [place] [address]Dr. Tadeo Smyth ALT [Catalytic activity/Vol] 25 U/L Normal 14-59 [facility] Comment on above: Performed By: #### L VIJI HALL, CMP ####[facility] [address] [place] [address]Dr. Tadeo Smyth Anion gap [Moles/Vol] 12.4 mmol/L Normal [facility] Comment on above: Performed By: #### L VIJI HALL, CMP ####[facility] [address] [place] [address]Dr. Tadeo Smyth AST [Catalytic activity/Vol] 18 U/L Normal 15-37 [facility] Comment on above: Performed By: #### L VIJI HALL, CMP ####[facility] [address] [place] [address]Dr. Tadeo Smyth Bilirubin [Mass/Vol] 0.3 mg/dL Normal 0.2-1.0 [facility] Comment on above: Performed By: #### L VIJI HALL, CMP ####[facility] [address] [place] [address]Dr. Tadeo Smyth Calcium [Mass/Vol] 9.1 mg/dL Normal 8.5-10.1 [facility] Comment on above: Performed By: #### L VIJI HALL, CMP ####[facility] T[address]fa[address]clv[address] [place] [address]Dr. Tadeo Smyth Chloride [Moles/Vol] 104 mmol/L Normal 98-107 [facility] Comment on above: Performed By: #### L VIJI HALL, CMP ####[facility] [address]ixuho[address] [place] [address]Dr. Tadeo Smyth CO2 [Moles/Vol] 25.0 mmol/L Normal 21.0-32.0 [facility] Comment on above: Performed By: #### L VIJI HALL, CMP ####[facility] Ypjhnvkcaa[address] [place] [address]Dr. Tadeo Smyth Creatinine [Mass/Vol] 0.87 mg/dL Normal 0.55-1.02 [facility] Comment on above: Performed By: #### L VIJI HALL, CMP ####[facility] Tpylvklsoe[address] [place] [address]Dr. Tadeo Smyth EGFR-AF ERITREAN >60 Normal >=60 [facility] Comment on above: Performed By: #### L VIJI HALL, CMP ####[facility] Jpui[address]wszzr[address] [place] [address]Dr. Tadeo Smyth EGFR-NON AF ERITREAN >60 Normal >=60 [facility] Comment on above: Performed By: #### L VIJI HALL, CMP ####[facility] [address] [place] [address]Dr. Tadeo Smyth Globulin (S) [Mass/Vol] 3.9 g/dL Normal [facility] Comment on above: Performed By: #### L VIJI HALL, CMP ####[facility] Clipwxcfvu[address] [place], [place] [address]Dr. Tadeo Smyth Glucose [Mass/Vol] 169 mg/dL Critically high 74-106 [facility] Comment on above: Performed By: #### L VIJI HALL, CMP ####[facility] Ykpyqzsxim[address] [place], [place] [address]Dr. Tadeo Smyth Potassium [Moles/Vol] 3.4 mmol/L Critically low 3.5-5.1 [facility] Comment on above: Performed By: #### L VIJI HALL, CMP ####[facility] Wmggyotr[address] [place], [place] [address]Dr. Tadeo Smyth Protein [Mass/Vol] 7.4 g/dL Normal 6.4-8.2 [facility] Comment on above: Performed By: #### L VIJI HALL, CMP ####[facility] Ugkccpyuva[address] [place], [place] [address]Dr. Tadeo Smyth Sodium [Moles/Vol] 138 mmol/L Normal 136-145 [facility] Comment on above: Performed By: #### L VIJI HALL, CMP ####[facility] Sxqalzceja[address] [place] [address]Dr. Tadeo Smyth Urea nitrogen [Mass/Vol] 23.0 mg/dL Critically high 7.0-18.0 [facility] Comment on above: Performed By: #### L VIJI HALL, CMP ####[facility] [address]uiuc[address] [place], [place] [address]NoNeo Smyth Urea nitrogen/Creatinine [Mass ratio] 26.4 mg/mg Normal [facility] Comment on above: Performed By: #### L ISABEL, VIJI, CMP ####[facility] [address]qepbr[address]st[address] [place], [place] [address] enterographyon 11-04-2022 CT enterography [facility] [place] [address] CT Scan Report Signed Patient: Constantino Cardoso MR#: [id number] : 1970 Acct:[id number] Age/Sex: 52 / F ADM Date: 11/04/22 Loc: CT Room: Type: [facility] Attending Dr: Jennie Ayon MD Copies [...] Bateman Jr., D.O.11/04/2022 11:17 AM Dictation Location: [place] [address] Transcribed By: [facility] 11/04/22 1117 Dictated By: Tiburcio Bateman Jr, DO 11/04/22 1112 Signed By: 11/04/22 1117 Normal [facility] AMYLASEon 11-02-2022 Amylase [Catalytic activity/Vol] 40 U/L Normal 25-115 [facility] Comment on above: Performed By: #### L IPA, MG, CMP, VIJI ####[facility] [address]un[address] [place] [id number]. Tadeo Smyth CBC AUTO DIFFon 11-02-2022 BASO # 0.0 103/ul Normal 0.0-0.1 [facility] Comment on above: Performed By: #### C BC ####[facility] S[address]hlmulmjf[address] [place] [address]Dr. Tadeo Smyth Basophils/100 WBC (Bld) 0.5 % Normal 0.2-2.0 [facility] Comment on above: Performed By: #### C BC ####[facility] Bsmxaavmpl7[address] [place] [address]Dr. Tadeo Smyth EO # 0.1 103/ul Normal 0.0-0.7 [facility] Comment on above: Performed By: #### C BC ####[facility] Rskyamehne10[address] [place] [address]Dr. Tadeo Smyth Eosinophils/100 WBC (Bld) 2.8 % Normal 0.9-7.0 [facility] Comment on above: Performed By: #### C BC ####[facility] U[address]azgiohio[address] [place] [address]Dr. Tadeo Smyth Erythrocyte distribution width (RBC) [Ratio] 13.3 % Normal 11.0-15.0 [facility] Comment on above: Performed By: #### C BC ####[facility] Yfsqhqgryw85[address] [place] [address]Dr. Tadeo Smyth Hematocrit (Bld) [Volume fraction] 35.6 % Critically low 36.0-48.0 [facility] Comment on above: Performed By: #### C BC ####[facility] Rrijacxkhe[address] [place], [place] [address]Dr. Margotnicole Smyth Hemoglobin (Bld) [Mass/Vol] 11.3 g/dL Critically low 12.0-16.0 [facility] Comment on above: Performed By: #### C BC ####[facility] Wfbpyrvwzc[address] [place], [place] [address]Dr. Tadeo Smyth IG # 0.01 10e3/ul Normal 0.00-0.03 [facility] Comment on above: Performed By: #### C BC ####[facility] Lcpwfsijyv[address] [place], [place] [address]Dr. Tadeo Smyth IG % 0.2 % Normal 0.0-0.5 [facility] Comment on above: Performed By: #### C BC ####[facility] Hznzqgfjsq64[address] [place], [place] [address]Dr. Tadeo Smyth LYMPH # 1.5 103/ul Normal 1.2-3.8 [facility] Comment on above: Performed By: #### C BC ####[facility] Lkyaaxvsub[address] [place], [place] [address]Dr. Tadeo Smyth Lymphocytes/100 WBC (Bld) 34.9 % Normal 20.5-60.0 [facility] Comment on above: Performed By: #### C BC ####[facility] Uqvjacvaia[address] [place], [place] [address]Dr. Tadeo Smyth MANUAL DIFF REQ NO Normal [facility] Comment on above: Performed By: #### C BC ####[facility] Ubagfatgnt[address] [place], [place] [address]Dr. Tadeo Smyth MCH (RBC) [Entitic mass] 28.8 pg Normal 26.7-34.0 [facility] Comment on above: Performed By: #### C BC ####[facility] W[address]uqfw8[address] [place] [address]Dr. Margotnicole Smyth MCHC (RBC) [Mass/Vol] 31.7 g/dL Normal 29.9-35.2 [facility] Comment on above: Performed By: #### C BC ####[facility] [address]stwfpfatn8[address] [place] [address]Dr. Tadeo Smyth MCV (RBC) [Entitic vol] 90.8 fL Normal 81.0-99.0 [facility] Comment on above: Performed By: #### C BC ####[facility] Bzqjihkrtj[address] [place], [place] [address]Dr. Tadeo Smyth MONO # 0.3 103/ul Normal 0.3-0.8 [facility] Comment on above: Performed By: #### C BC ####[facility] Ofivsfipbi[address] [place], [place] [address]Dr. Tadeo Smyth Monocytes/100 WBC (Bld) 6.9 % Normal 1.7-12.0 [facility] Comment on above: Performed By: #### C BC ####[facility] Uklvktkmse[address] [place], [place] [address]Dr. Tadeo Smyth NEUT # 2.4 103/ul Normal 1.4-6.5 [facility] Comment on above: Performed By: #### C BC ####[facility] Suxlnsckxd[address] [place], [place] [address]Dr. Tadeo Smyth Neutrophils/100 WBC (Bld) 54.7 % Normal 43.0-75.0 [facility] Comment on above: Performed By: #### C BC ####[facility] Dsessixvzl[address] [place], [place] [address]Dr. Tadeo Smyth Platelet mean volume (Bld) [Entitic vol] 8.9 fL Critically low 9.5-13.5 [facility] Comment on above: Performed By: #### C BC ####[facility] Rttibjpopy[address] [place], [place] [address]Dr. Tadeo Smyth PLT 316 103/ul Normal 150-450 [facility] Comment on above: Performed By: #### C BC ####[facility] Kurimijfao[address] [place] [address]Dr. Tadeo Smyth RBC 3.92 106/ul Critically low 4.20-5.40 [facility] Comment on above: Performed By: #### C BC ####[facility] Eerlrbmywy64[address] [place] [address]Dr. Tadeo Smyth WBC 4.4 103/ul Normal 4.0-11.0 [facility] Comment on above: Performed By: #### C BC ####[facility] Djdebjddyr28[address] [place] [address]Dr. Tadeo Smyth H PYLORI ANTIBODY IGGon 10-07 H. PYLORI IGG ABS 0.12 Index Value Normal 0.00-0.79 [facility] Comment on above: Result Comment: Nega tive <0.80 Equivocal 0.80 - 0.89 Positive >0.89 Performed By: #### H PYLLC ####[facility] Vdirtfyetv[address] [place], [place] [address]Dr. Tadeo Smyth LIPASEon 11-02-2022 Lipase [Catalytic activity/Vol] 58.0 U/L Critically low 73.0-393.0 [facility] Comment on above: Performed By: #### L IPA, MG, CMP, VIJI ####[facility] Pjipipewpb[address] [place], [place] [address]Dr. Tadeo Smyth MAGNESIUMon 11-02-2022 Magnesium [Mass/Vol] 1.8 mg/dL Normal 1.8-2.4 [facility] Comment on above: Performed By: #### L IPA, MG, CMP, VIJI ####[facility] Prscuzsjkf[address] [place], [place] [address]Dr. Margotnicole Smyth PROF 14(COMP METB)on 023 Albumin [Mass/Vol] 3.2 g/dL Critically low 3.4-5.0 [facility] Comment on above: Performed By: #### L IPA, MG, CMP, VIJI ####[facility] Rcugvhdcjg[address] [place], [place] [address]Dr. Tadeo Smyth Albumin/Globulin [Mass ratio] 1.0 {ratio} Normal [facility] Comment on above: Performed By: #### L IPA, MG, CMP, VIJI ####[facility] [address]yivwjzybw[address] [place] [address]Dr. Tadeo Smyth ALP [Catalytic activity/Vol] 138 U/L Critically high 46-116 [facility] Comment on above: Performed By: #### L IPA, MG, CMP, VIJI ####[facility] Asaxmlsybj[address] [place], [place] [address]Dr. Tadeo Smyth ALT [Catalytic activity/Vol] 22 U/L Normal 14-59 [facility] Comment on above: Performed By: #### L IPA, MG, CMP, VIJI ####[facility] Cdqbqsunge[address] [place], [place] [address]Dr. Tadeo Smyth Anion gap [Moles/Vol] 10.0 mmol/L Normal [facility] Comment on above: Performed By: #### L IPA, MG, CMP, VIJI ####[facility] Ljmrnvghec[address] [place], [place] [address]Dr. Tadeo Smyth AST [Catalytic activity/Vol] 18 U/L Normal 15-37 [facility] Comment on above: Performed By: #### L IPA, MG, CMP, VIJI ####[facility] Whaiykdiub[address] [place], [place] [address]Dr. Tadeo Smyth Bilirubin [Mass/Vol] 0.5 mg/dL Normal 0.2-1.0 [facility] Comment on above: Performed By: #### L IPA, MG, CMP, VIJI ####[facility] Cwyxjcimpc[address] [place], [place] [address]Dr. Tadeo Smyth Calcium [Mass/Vol] 8.9 mg/dL Normal 8.5-10.1 [facility] Comment on above: Performed By: #### L IPA, MG, CMP, VIJI ####[facility] K[address]wvxomhpq4[address] [place] [address]Dr. Tadeo Smyth Chloride [Moles/Vol] 107 mmol/L Normal 98-107 [facility] Comment on above: Performed By: #### L IPA, MG, CMP, VIJI ####[facility] O[address]vwzvgjj75[address] [place] [address]Dr. Tadeo Smyth CO2 [Moles/Vol] 28.8 mmol/L Normal 21.0-32.0 [facility] Comment on above: Performed By: #### L IPA, MG, CMP, VIJI ####[facility] Sfubywufdw40[address] [place] [address]Dr. Tadeo Smyth Creatinine [Mass/Vol] 0.74 mg/dL Normal 0.55-1.02 [facility] Comment on above: Performed By: #### L IPA, MG, CMP, VIJI ####[facility] Yjfitnsrsb34[address] [place] [address]Dr. Tadeo Haja EGFR-AF ERITREAN >60 Normal >=60 [facility] Comment on above: Performed By: #### L IPA, MG, CMP, VIJI ####[facility] Zxpgdilghy9[address] [place] [address]Dr. Tadeo Smyth EGFR-NON AF ERITREAN >60 Normal >=60 [facility] Comment on above: Performed By: #### L IPA, MG, CMP, VIJI ####[facility] Whjwczeujn75[address] [place] [address]Dr. Tadeo Haja Globulin (S) [Mass/Vol] 3.3 g/dL Normal [facility] Comment on above: Performed By: #### L IPA, MG, CMP, VIJI ####[facility] Iwkegqvfla8[address] [place] [address]Dr. Tadeo Smyth Glucose [Mass/Vol] 96 mg/dL Normal 74-106 [facility] Comment on above: Performed By: #### L IPA, MG, CMP, VIJI ####[facility] Xowtiibjlr7216 [place] [address]Dr. Margotnicole Smyth Potassium [Moles/Vol] 3.8 mmol/L Normal 3.5-5.1 [facility] Comment on above: Performed By: #### L IPA, MG, CMP, VIJI ####[facility] Jfsietpxms2694 [place] [address]Dr. Margotnicole Smyth Protein [Mass/Vol] 6.5 g/dL Normal 6.4-8.2 [facility] Comment on above: Performed By: #### L IPA, MG, CMP, VIJI ####[facility] Lllgauueqc[address] [place], [place] [address]Dr. Tadeo Smyth Sodium [Moles/Vol] 142 mmol/L Normal 136-145 [facility] Comment on above: Performed By: #### L IPA, MG, CMP, VIJI ####[facility] Jpcnjmxexp[address] [place], [place] [address]Dr. Tadeo Smyth Urea nitrogen [Mass/Vol] 8.0 mg/dL Normal 7.0-18.0 [facility] Comment on above: Performed By: #### L IPA, MG, CMP, VIJI ####[facility] Exzxlrbjmn[address] [place], [place] [address]Dr. Tadeo Smyth Urea nitrogen/Creatinine [Mass ratio] 10.8 mg/mg Normal [facility] Comment on above: Performed By: #### L IPA, MG, CMP, VIJI ####[facility] Icapnaujgz[address] [place], [place] [address]Dr. Tadeo Smyth AMMONIAon 11-01-2022 Ammonia (P) [Moles/Vol] 18 umol/L Normal 11-32 [facility] Comment on above: Performed By: #### A MM ####[facility] Czpejysqtz[address] [place], [place] [address]Dr. Tadeo Smyth AMYLASEon 11-01-2022 Amylase [Catalytic activity/Vol] 43 U/L Normal 25-115 [facility] Comment on above: Performed By: #### M G, VIJI, LIPA, CMP ####[facility] Cypzmxaduu[address] [place], [place] [address]Dr. Tadeo Smyth CBC AUTO DIFFon 11-01-2022 BASO # 0.0 103/ul Normal 0.0-0.1 [facility] Comment on above: Performed By: #### C BC ####[facility] Ukmzaxvqve[address] [place], [place] [address]Dr. Tadeo Smyth Basophils/100 WBC (Bld) 0.6 % Normal 0.2-2.0 [facility] Comment on above: Performed By: #### C BC ####[facility] Clscunzkck[address] [place] [address]Dr. Tadeo Smyth EO # 0.1 103/ul Normal 0.0-0.7 [facility] Comment on above: Performed By: #### C BC ####[facility] Rqnuydenvn8527 [place] [address]Dr. Tadeo Smyth Eosinophils/100 WBC (Bld) 1.5 % Normal 0.9-7.0 [facility] Comment on above: Performed By: #### C BC ####[facility] Ippwkjnctx32[address] [place], [place] [address]Dr. Tadeo Smyth Erythrocyte distribution width (RBC) [Ratio] 13.5 % Normal 11.0-15.0 [facility] Comment on above: Performed By: #### C BC ####[facility] Bfxuhuwcyv[address] [place], [place] [address]Dr. Tadeo Smyth Hematocrit (Bld) [Volume fraction] 37.7 % Normal 36.0-48.0 [facility] Comment on above: Performed By: #### C BC ####[facility] Bziflshbvb[address] [place], [place] [address]Dr. Tadeo Smyth Hemoglobin (Bld) [Mass/Vol] 12.5 g/dL Normal 12.0-16.0 [facility] Comment on above: Performed By: #### C BC ####[facility] Tewhwcgcou[address] [place], [place] [address]Dr. Margotnicole Smyth IG # 0.02 10e3/ul Normal 0.00-0.03 [facility] Comment on above: Performed By: #### C BC ####[facility] Tqekabjxju[address] [place], [place] [address]Dr. Tadeo Smyth IG % 0.4 % Normal 0.0-0.5 [facility] Comment on above: Performed By: #### C BC ####[facility] Lqgvvkzxkt[address] [place], [place] [address]Dr. Tadeo Smyth LYMPH # 1.3 103/ul Normal 1.2-3.8 [facility] Comment on above: Performed By: #### C BC ####[facility] Qvtlxwvkyz7160 [place] [address]Dr. Tadeo Haja Lymphocytes/100 WBC (Bld) 23.9 % Normal 20.5-60.0 [facility] Comment on above: Performed By: #### C BC ####[facility] Zigwvlptsf36[address] [place] [address]Dr. Tadeo Smyth MANUAL DIFF REQ NO Normal [facility] Comment on above: Performed By: #### C BC ####[facility] Kcceqtpjjd3738 [place] [id number]. Margotnicole Smyth MCH (RBC) [Entitic mass] 29.8 pg Normal 26.7-34.0 [facility] Comment on above: Performed By: #### C BC ####[facility] Vdkfidzmxo[address] [place], [place] [address]Dr. Tadeo Smyth MCHC (RBC) [Mass/Vol] 33.2 g/dL Normal 29.9-35.2 [facility] Comment on above: Performed By: #### C BC ####[facility] [address]ft[address]vxoczb[address] [place], [place] [address]Dr. Margotnicole Smyth MCV (RBC) [Entitic vol] 89.8 fL Normal 81.0-99.0 [facility] Comment on above: Performed By: #### C BC ####[facility] Vubdrggeht[address] [place], [place] [address]Dr. Tadeo Smyth MONO # 0.3 103/ul Normal 0.3-0.8 [facility] Comment on above: Performed By: #### C BC ####[facility] Zlfeywxrkd[address] [place], [place] [address]Dr. Tadeo Smyth Monocytes/100 WBC (Bld) 5.2 % Normal 1.7-12.0 [facility] Comment on above: Performed By: #### C BC ####[facility] Rbkgextlne[address] [place], [place] [address]Dr. Tadeo Smyth NEUT # 3.6 103/ul Normal 1.4-6.5 [facility] Comment on above: Performed By: #### C BC ####[facility] Zxmbwneosb5906 [place] [address]Dr. Tadeo Smyth Neutrophils/100 WBC (Bld) 68.4 % Normal 43.0-75.0 [facility] Comment on above: Performed By: #### C BC ####[facility] Awqemdfsws87[address] [place] [address]Dr. Tadeo Smyth Platelet mean volume (Bld) [Entitic vol] 9.0 fL Critically low 9.5-13.5 [facility] Comment on above: Performed By: #### C BC ####[facility] Zrumlcradl[address] [place], [place] [address]Dr. Tadeo Smyth PLT 356 103/ul Normal 150-450 [facility] Comment on above: Performed By: #### C BC ####[facility] Aybzylyckd069[address] [place], [place] [address]Dr. Tadeo Smyth RBC 4.20 106/ul Normal 4.20-5.40 [facility] Comment on above: Performed By: #### C BC ####[facility] Xritoiduuy[address] [place], [place] [address]Dr. Tadeo Smyth WBC 5.2 103/ul Normal 4.0-11.0 [facility] Comment on above: Performed By: #### C BC ####[facility] Nsibgqcikg[address] [place], [place] [address]Dr. Tadeo S[address] CT ABD/PELV W CONon 11-01-[address] ABD/PELV W CON Normal [facility] CULTURE BLOODon 11-01-2022 Microscopic examination of blood, culture Culture Observations: NO GROWTH AT 5 DAYS. Isolate 1 BC_BA_NA Normal [facility] Comment on above: Performed By: #### B LDCX2 ####[facility] Xckblecbop[address] [place], [place] [address]Dr. Tadeo Smyth Performed By: #### B LDCX1 ####[facility] Ocxzkpuiox[address] [place], [place] [address]Dr. Tadeo Smyth CULTURE URINEon 11-01-2022 CULTURE URINE Culture Observations : LIGHT GROWTH OF MIXED GENITAL SINTIA. NO POTENTIAL PATHOGENS SEEN. Normal [facility] Comment on above: Performed By: #### U RCX ####[facility] Mmniipdxgv[address] [place], [place] [address]Dr. Tadeo Smyth Covid-19 PCR (CVDTB)on 10-07 SARS-CoV-2 (COVID-19) RNA CHEN+probe Ql (Unsp spec) Not detected Normal NOT DETECTED [facility] Comment on above: Result Comment: When [...] for this test is supported by the [employer]'s declaration that [...] be used). Performed By: #### C VDTBH ####[facility] Sxzmkiibqv[address] [place], [place] [address]Dr. Tadeo Haja LACTATE/LACTIC ACIDon 2022 Lactate [Moles/Vol] 0.7 mmol/L Normal 0.4-1.9 [facility] Comment on above: Performed By: #### L ACT ####[facility] Vvgpbeabqk[address] [place], [place] [address]Dr. Margotnicole Smyth LIPASEon 11-01-2022 Lipase [Catalytic activity/Vol] 58.0 U/L Critically low 73.0-393.0 [facility] Comment on above: Performed By: #### M G, VIJI, LIPA, CMP ####[facility] Issxwsoeym[address] [place], [place] [address]Dr. Margotnicole Smyth MAGNESIUMon 11-01-2022 Magnesium [Mass/Vol] 2.0 mg/dL Normal 1.8-2.4 [facility] Comment on above: Performed By: #### M Ayan, VIJI, LIPA, CMP ####[facility] Dfmerhypny[address] [place] [address]Dr. Tadeo Smyth PROF 14(COMP METB)on 023 Albumin [Mass/Vol] 3.6 g/dL Normal 3.4-5.0 [facility] Comment on above: Performed By: #### M G, VIJI, LIPA, CMP ####[facility] Qberwkiznh5268 [place] [address]Dr. Tadeo Smyth Albumin/Globulin [Mass ratio] 1.0 {ratio} Normal [facility] Comment on above: Performed By: #### M G, VIJI, LIPA, CMP ####[facility] Asifhkxgph17[address] [place] [address]Dr. Tadeo Smyth ALP [Catalytic activity/Vol] 164 U/L Critically high 46-116 [facility] Comment on above: Performed By: #### M G, VIJI, LIPA, CMP ####[facility] Uxldezwzce[address] [place] [address]Dr. Tadeo Smyth ALT [Catalytic activity/Vol] 22 U/L Normal 14-59 [facility] Comment on above: Performed By: #### M G, VIJI, LIPA, CMP ####[facility] Sraqosvlok34[address] [place] [address]Dr. Tadeo Smyth Anion gap [Moles/Vol] 11.5 mmol/L Normal [facility] Comment on above: Performed By: #### M G, VIJI, LIPA, CMP ####[facility] Qefuxptvub1647 [place] [address]Dr. Tadeo Smyth AST [Catalytic activity/Vol] 17 U/L Normal 15-37 [facility] Comment on above: Performed By: #### M G, VIJI, LIPA, CMP ####[facility] Kncbyxvzpc6840 [place] [address]Dr. Tadeo Smyth Bilirubin [Mass/Vol] 0.4 mg/dL Normal 0.2-1.0 [facility] Comment on above: Performed By: #### M Ayan, VIJI LIPA, CMP ####[facility] Aazkrupwhg[address] [place] [address]Dr. Tadeo Smyth Calcium [Mass/Vol] 9.1 mg/dL Normal 8.5-10.1 [facility] Comment on above: Performed By: #### M Ayan, VIJI LIPA, CMP ####[facility] Femkuywtfw[address] [place], [place] [address]Dr. Tadeo Smyth Chloride [Moles/Vol] 105 mmol/L Normal 98-107 [facility] Comment on above: Performed By: #### M Ayan, VIJI LIPA, CMP ####[facility] Nbofcqczcy[address] [place], [place] [address]Dr. Tadeo Smyth CO2 [Moles/Vol] 27.6 mmol/L Normal 21.0-32.0 [facility] Comment on above: Performed By: #### Clementina Botello, VIJI LIPA, CMP ####[facility] [address]mpkabtrqx[address] [place], [place] [address]Dr. Tadeo Smyth Creatinine [Mass/Vol] 0.72 mg/dL Normal 0.55-1.02 [facility] Comment on above: Performed By: #### M Ayan, VIJI, LIPA, CMP ####[facility] G[address]kwicit[address] [place], [place] [address]Dr. Tadeo Smyth EGFR-AF ERITREAN >60 Normal >=60 [facility] Comment on above: Performed By: #### M Ayan, VIJI, LIPA, CMP ####[facility] Ihtnoxqhsv[address] [place], [place] [address]Dr. Tadeo Smyth EGFR-NON AF ERITREAN >60 Normal >=60 [facility] Comment on above: Performed By: #### M Ayan, VIJI, LIPA, CMP ####[facility] Tvzeunxzyp18[address] [place] [address]Dr. Tadeo Smyth Globulin (S) [Mass/Vol] 3.6 g/dL Normal [facility] Comment on above: Performed By: #### M G, VIJI, LIPA, CMP ####[facility] Edvdwvorhc[address] [place] [address]Dr. Tadeo Smyth Glucose [Mass/Vol] 100 mg/dL Normal 74-106 [facility] Comment on above: Performed By: #### M G, VIJI, LIPA, CMP ####[facility] Hxgzbzycwk[address] [place] [address]Dr. Tadeo Smyth Potassium [Moles/Vol] 4.1 mmol/L Normal 3.5-5.1 The [facility] Comment on above: Performed By: #### M G, VIJI, LIPA, CMP ####[facility] [address] [place] [address]Dr. Tadeo Smyth Protein [Mass/Vol] 7.2 g/dL Normal 6.4-8.2 [facility] Comment on above: Performed By: #### M G, VIJI, LIPA, CMP ####[facility] [address] [place] [address]Dr. Tadeo Smyth Sodium [Moles/Vol] 140 mmol/L Normal 136-145 [facility] Comment on above: Performed By: #### M G, VIJI, LIPA, CMP ####[facility] [address] [place] [address]Dr. Tadeo Smyth Urea nitrogen [Mass/Vol] 15.0 mg/dL Normal 7.0-18.0 [facility] Comment on above: Performed By: #### M G, VIJI, LIPA, CMP ####[facility] [address] [place] [address]Dr. Margotnicole Haja Urea nitrogen/Creatinine [Mass ratio] 20.8 mg/mg Normal [facility] Comment on above: Performed By: #### M G, VIJI, LIPA, CMP ####[facility] [address] [place] [address]Dr. Tadeo Smyth UA RANDOM W/MICROSCOPICon BACTERIA TRACE Abnormal NONE SEEN [facility] Comment on above: Performed By: #### U AMIC ####[facility] [address] [place] [address]Dr. Tadeo Smyth Bilirubin Ql (U) Negative Normal NEGATIVE [facility] Comment on above: Performed By: #### U AMIC ####[facility] [address] [place], [place] [address]Dr. Tadeo Smyth CAST NONE SEEN Normal NONE SEEN [facility] Comment on above: Performed By: #### U AMIC ####[facility] [address] [place], [place] [address]Dr. Tadeo Smyth Clarity (U) CLEAR Normal CLEAR [facility] Comment on above: Performed By: #### U AMIC ####[facility] [address] [place], [place] [address]Dr. Tadeo Smyth Color (U) LT. YELLOW Normal YELLOW [facility] Comment on above: Performed By: #### U AMIC ####[facility] [address] [place], [place] [address]Dr. Tadeo Smyth Crystals LM Nom (Urine sed) NONE SEEN Normal NONE SEEN [facility] Comment on above: Performed By: #### U AMIC ####[facility] [address] [place], [place] [address]Dr. Tadeo Smyth Epithelial cells LM Ql (Urine sed) RARE Normal NONE SEEN /RARE [facility] Comment on above: Performed By: #### U AMIC ####[facility] [address] [place], [place] [address]Dr. Tadeo Smyth Glucose Ql (U) Negative Normal NEGATIVE [facility] Comment on above: Performed By: #### U AMIC ####[facility] [address] [place], [place] [address]Dr. Tadeo Smyth Hemoglobin Ql (U) TRACE-LYSED Abnormal NEGATIVE [facility] Comment on above: Performed By: #### U AMIC ####[facility] [address] [place], [place] [address]Dr. Tadeo Smyth Ketones Ql (U) Negative Normal NEGATIVE [facility] Comment on above: Performed By: #### U AMIC ####[facility] Pc[address] [place], [place] [address]Dr. Tadeo Smyth LEUKOCYTES Negative Normal NEGATIVE [facility] Comment on above: Performed By: #### U AMIC ####[facility] [address] [place] [address]Dr. Margotnicole Haja MUCOUS NONE SEEN Normal NONE SEEN [facility] Comment on above: Performed By: #### U AMIC ####[facility] [address] [place] [address]Dr. Tadeo Smyth Nitrite Ql (U) Negative Normal NEGATIVE [facility] Comment on above: Performed By: #### U AMIC ####[facility] [address] [place], [place] [address]Dr. Tadeo Smyth pH (U) 6.0 [pH] Normal 5-9 [facility] Comment on above: Performed By: #### U AMIC ####[facility] [address] [place], [place] [address]Dr. Tadeo Smyth RBC 0-2 Normal 0-2 [facility] Comment on above: Performed By: #### U AMIC ####[facility] [address] [place], [place] [address]Dr. Tadeo Smyth SPEC GRAVITY 1.010 Normal 1.005-<=1.0 25 [facility] Comment on above: Performed By: #### U AMIC ####[facility] [address] [place], [place] [address]Dr. Tadeo Smyth UA PROTEIN Negative Normal NEGATIVE/ TRACE [facility] Comment on above: Performed By: #### U AMIC ####[facility] [address] [place], [place] [address]Dr. Tadeo Smyth Urobilinogen Qn (U) 0.2 {Benito'U}/dL Normal 0.2 - 1. 0 [facility] Comment on above: Performed By: #### U AMIC ####[facility] [address] [place], [place] [address]Dr. Tadeo Smyth WBC 0-2 Abnormal NONE SEEN [facility] Comment on above: Performed By: #### U AMIC ####[facility] V[address]frl[address] [place], [place] [address]Dr. Tadeo Smyth Activated partial thrombopla stin time (aPTT) in platelet poor plasma by coagulation aOrdered By: Conner Griffith on 10-26-2022 aPTT Coag (PPP) [Time] 30.8 s 25.1-36.5 [facility] Albumin [Mass/volume] in Ser um or PlasmaOrdered By: Conner Griffith on 10-26-2022 Albumin [Mass/Vol] 3.6 g/dL 3.2-5.5 [facility] Automated erythrocytes count in urine sediment (number/area)Ordered By: Conner Griffith on 10-26-2022 RBC Auto (Urine sed) [#/Area] 0-1 [HPF] 0-4 [facility] Automated leukocytes count i n urine sediment (number/area)Ordered By: Cnoner Griffith on 10-26-2022 WBC Auto (Urine sed) [#/Area] None seen [HPF] 0-4 [facility] Basophils Auto (Bld) [#/Vol] Ordered By: Conner Griffith on 10-26-2022 Basophils (Bld) [#/Vol] 0.0 10*3/uL 0.0-0.2 [facility] Basophils/100 WBC Auto (Bld) Ordered By: Conner Griffith on 10-26-2022 Basophils/100 WBC (Bld) 0.6 % . [facility] Bilirubin Test strip Ql (U)O rdered By: Conner Griffith on 10-26-2022 Bilirubin Ql (U) Negative Negative [facility] CT abdomen pelvis w conon CT abdomen pelvis w con [facility] [place] [address] CT Scan Report Signed Patient: Constantino Cardoso MR#: [id number] : 1970 Acct:[id number] Age/Sex: 52 / F ADM Date: 10/26/22 Loc: ER Room: Type: [facility] ER Attending Dr: Copies to: [...] Columba Domínguez M.D.10/26/2022 7:46 AM Dictation Location: [place] [address] Transcribed By: [facility] 10/26/22 0746 Dictated By: Columba Domínguez MD 10/26/22 0738 Signed By: 10/26/22 0746 Normal [facility] Color Auto (U)Ordered By: Kevin Griffith on 10-26-2022 Color (U) Yellow Yellow [facility] Complete Blood Count Auto Di ffon 10-26-2022 Basophils (Bld) [#/Vol] 0.0 10*3/uL Normal 0.0-0.2 [facility] Comment on above: Result Comment: PERF ORMED BY: [place] [address] PATHOLOGIST [employer]RO[employer] SIGNAL TECHNICIAN ROOSEVELT KEYES M.D. Performed By: #### H EPATIC, CBC, BMP, LIPASE #### [address] Basophils/100 WBC (Bld) 0.6 % Normal . [facility] Comment on above: Performed By: #### H EPATIC, CBC, BMP, LIPASE #### [address] Eosinophils (Bld) [#/Vol] 0.2 10*3/uL Normal 0.0-0.45 [facility] Comment on above: Performed By: #### H EPATIC, CBC, BMP, LIPASE #### [address] Eosinophils/100 WBC (Bld) 3.3 % Normal . [facility] Comment on above: Performed By: #### H EPATIC, CBC, BMP, LIPASE #### [address] Erythrocyte distribution width (RBC) [Ratio] 14.5 % Normal 11.9-15.3 [facility] Comment on above: Performed By: #### H EPATIC, CBC, BMP, LIPASE #### [address] Hematocrit (Bld) [Volume fraction] 36.7 % Normal 34.0-46.4 [facility] Comment on above: Performed By: #### H EPATIC, CBC, BMP, LIPASE #### [address] Hemoglobin (Bld) [Mass/Vol] 12.1 g/dL Normal 11.8-15.4 [facility] Comment on above: Performed By: #### H EPATIC, CBC, BMP, LIPASE #### [address] Lymphocytes (Bld) [#/Vol] 1.9 10*3/uL Normal 1.00-4.8 [facility] Comment on above: Performed By: #### H EPATIC, CBC, BMP, LIPASE #### [address] Lymphocytes/100 WBC (Bld) 29.7 % Normal . [facility] Comment on above: Performed By: #### H EPATIC, CBC, BMP, LIPASE #### [address] MCH (RBC) [Entitic mass] 29.3 pg Normal 24.7-34.3 [facility] Comment on above: Performed By: #### H EPATIC, CBC, BMP, LIPASE #### [address] MCV (RBC) [Entitic vol] 88.5 fL Normal 80-100 [facility] Comment on above: Performed By: #### H EPATIC, CBC, BMP, LIPASE #### [address] Mean Corpuscular HGB Conc 33.1 g/dL Normal 32.0-35.0 [facility] Comment on above: Performed By: #### H EPATIC, CBC, BMP, LIPASE #### [address] Monocytes (Bld) [#/Vol] 0.4 10*3/uL Normal 0.0-0.8 [facility] Comment on above: Performed By: #### H EPATIC, CBC, BMP, LIPASE #### [address] Monocytes/100 WBC (Bld) 16.27 % Normal 0.00-20.00 [facility] Comment on above: Performed By: #### H EPATIC, CBC, BMP, LIPASE #### [address] Monocytes/100 WBC (Bld) 7.1 % Normal . [facility] Comment on above: Performed By: #### H EPATIC, CBC, BMP, LIPASE #### [address] Neutrophils (Bld) [#/Vol] 3.7 10*3/uL Normal 1.8-7.7 [facility] Comment on above: Performed By: #### H EPATIC, CBC, BMP, LIPASE #### [address] Neutrophils/100 WBC (Bld) 59.3 % Normal . [facility] Comment on above: Performed By: #### H EPATIC, CBC, BMP, LIPASE #### [address] NRBC% 0.3 /100{WBC} Normal 0-0.5 [facility] Comment on above: Performed By: #### H EPATIC, CBC, BMP, LIPASE #### [address] Platelet mean volume (Bld) [Entitic vol] 7.5 fL Normal 6.3-10.7 [facility] Comment on above: Performed By: #### H EPATIC, CBC, BMP, LIPASE #### [address] Platelets (Bld) [#/Vol] 379 10*3/uL Normal 150-450 [facility] Comment on above: Performed By: #### H EPATIC, CBC, BMP, LIPASE #### [address] RBC (Bld) [#/Vol] 4.14 10*6/uL Normal 3.60-5.00 [facility] Comment on above: Performed By: #### H EPATIC, CBC, BMP, LIPASE #### [address] WBC (Bld) [#/Vol] 6.3 10*3/uL Normal 3.8-11.6 [facility] Comment on above: Performed By: #### H EPATIC, CBC, BMP, LIPASE #### [address] [place] [address] [place] [facility]abolic Pane miranda 10-26-2022 Albumin [Mass/Vol] 3.6 g/dL Normal 3.2-5.5 [facility] Comment on above: Performed By: #### H EPATIC, CBC, BMP, LIPASE #### [facility] [address] Albumin/Globulin [Mass ratio] 1.1 {ratio} Normal [facility] Comment on above: Performed By: #### H EPATIC, CBC, BMP, LIPASE #### [facility] [address] ALP [Catalytic activity/Vol] 121 U/L High 32-92 [facility] Comment on above: Performed By: #### H EPATIC, CBC, BMP, LIPASE #### [facility] [address] [place] [address] ALT [Catalytic activity/Vol] 18 U/L Normal 10-60 [facility] Comment on above: Performed By: #### H EPATIC, CBC, BMP, LIPASE #### [facility] [address] [place] [address] Anion gap [Moles/Vol] 11.3 mmol/L Normal 6.0-15.0 [facility] Comment on above: Performed By: #### H EPATIC, CBC, BMP, LIPASE #### [facility] [address] [place] [address] AST [Catalytic activity/Vol] 19 U/L Normal 10-42 [facility] Comment on above: Performed By: #### H EPATIC, CBC, BMP, LIPASE #### [facility] [address] [place] [address] Bilirubin [Mass/Vol] 0.4 mg/dL Normal 0.3-1.2 [facility] Comment on above: Performed By: #### H EPATIC, CBC, BMP, LIPASE #### [facility] [address] [place] [address] Calcium [Mass/Vol] 8.9 mg/dL Normal 8.2-10.2 [facility] Comment on above: Performed By: #### H EPATIC, CBC, BMP, LIPASE #### [address] Chloride [Moles/Vol] 108 mmol/L Normal 95-114 [facility] Comment on above: Performed By: #### H EPATIC, CBC, BMP, LIPASE #### [address] CO2 [Moles/Vol] 25.1 mmol/L Normal 22.0-30.0 [facility] Comment on above: Performed By: #### H EPATIC, CBC, BMP, LIPASE #### [address] Creatinine [Mass/Vol] 0.81 mg/dL Normal 0.44-1.03 [facility] Comment on above: Performed By: #### H EPATIC, CBC, BMP, LIPASE #### [address] Creatinine Clr Calc Pharmacy 93.01 [facility] Comment on above: Performed By: #### H EPATIC, CBC, BMP, LIPASE #### [address] Estimated GFR ( Roberto > 60 [facility] Comment on above: Result Comment: GFR estimated reference range: According to KDOQI guidelines, <60 ml/min/1.73m2 is sufficient to diagnose a patient with chronic kidney disease. Performed By: #### H EPATIC, CBC, BMP, LIPASE #### [address] Estimated GFR (Non- Am > 60 [facility] Comment on above: Performed By: #### H EPATIC, CBC, BMP, LIPASE #### [address] Globulin (S) [Mass/Vol] 3.2 g/dL [facility] Comment on above: Performed By: #### H EPATIC, CBC, BMP, LIPASE #### [address] Glucose [Mass/Vol] 95 mg/dL Normal 70-100 [facility] Comment on above: Result Comment: [facility] Glucose Reference Range is dependent on time and content of last meal. Glucose of more than 200 mg/dL in a nonstressed, ambulatory subject supports the diagnosis of Diabetes Mellitus. ADA recommended reference range Performed By: #### H EPATIC, CBC, BMP, LIPASE #### [facility] [address] Potassium [Moles/Vol] 3.4 mmol/L Low 3.5-5.1 [facility] Comment on above: Performed By: #### H EPATIC, CBC, BMP, LIPASE #### [address] Protein [Mass/Vol] 6.8 g/dL Normal 6.1-7.9 [facility] Comment on above: Performed By: #### H EPATIC, CBC, BMP, LIPASE #### [address] Sodium [Moles/Vol] 141 mmol/L Normal 136-146 [facility] Comment on above: Performed By: #### H EPATIC, CBC, BMP, LIPASE #### [address] Urea nitrogen [Mass/Vol] 18 mg/dL Normal 9-23 [facility] Comment on above: Performed By: #### H EPATIC, CBC, BMP, LIPASE #### [address] Creatinine and Glomerular fi ltration rate.predicted panel (S/P/Bld)Ordered By: Conner Griffith on 10-26-2022 Creatinine [Mass/Vol] 0.81 mg/dL 0.44-1.03 [facility] Dipstick and Microscopicon 0 10-26-2022 Appearance (U) Clear Normal Clear [facility] Comment on above: Order Comment: Name Collection Type:: Clean-Voided Midstream Performed By: #### H EPATIC, CBC, BMP, LIPASE #### [address] Bacteria,Urine None Seen Normal None Seen [facility] Comment on above: Order Comment: Name Collection Type:: Clean-Voided Midstream Performed By: #### H EPATIC, CBC, BMP, LIPASE #### [facility] [address] [place] [address] Bilirubin,Urine Negative Normal Negative [facility] Comment on above: Order Comment: Name Collection Type:: Clean-Voided Midstream Performed By: #### H EPATIC, CBC, BMP, LIPASE #### [facility] [address] [place] [address] Color (U) Yellow Normal Yellow [facility] Comment on above: Order Comment: Name Collection Type:: Clean-Voided Midstream Performed By: #### H EPATIC, CBC, BMP, LIPASE #### [address] Glucose Ql (U) Normal Normal Normal [facility] Comment on above: Order Comment: Name Collection Type:: Clean-Voided Midstream Performed By: #### H EPATIC, CBC, BMP, LIPASE #### [address] Hyaline Casts,Urine None Seen Normal 0-8 [facility] Comment on above: Order Comment: Name Collection Type:: Clean-Voided Midstream Result Comment: PERF ORMED BY: [place] [address] PATHOLOGIST [employer]ILRO[employer] SIGNAL TECHNICIAN ROOSEVELT KEYES M.D. Performed By: #### H EPATIC, CBC, BMP, LIPASE #### [facility] [address] [place] [address] Ketones Ql (U) Negative Normal Negative [facility] Comment on above: Order Comment: Name Collection Type:: Clean-Voided Midstream Performed By: #### H EPATIC, CBC, BMP, LIPASE #### [facility] [address] [place] [address] Leukocyte esterase Test strip Ql (U) 1+ High Negative [facility] Comment on above: Order Comment: Name Collection Type:: Clean-Voided Midstream Performed By: #### H EPATIC, CBC, BMP, LIPASE #### [address] Nitrite,Urine Negative Normal Negative [facility] Comment on above: Order Comment: Name Collection Type:: Clean-Voided Midstream Performed By: #### H EPATIC, CBC, BMP, LIPASE #### [address] Occult Blood,Urine Negative Normal Negative [facility] Comment on above: Order Comment: Name Collection Type:: Clean-Voided Midstream Result Comment: PERF ORMED BY: [place] [address] PATHOLOGIST [employer]ILRO[employer] SIGNAL TECHNICIAN ROOSEVELT KEYES M.D. Performed By: #### H EPATIC, CBC, BMP, LIPASE #### [address] pH (U) 6.5 [pH] Normal 5.0-9.0 [facility] Comment on above: Order Comment: Name Collection Type:: Clean-Voided Midstream Performed By: #### H EPATIC, CBC, BMP, LIPASE #### [address] Protein,Urine Negative Normal Negative [facility] Comment on above: Order Comment: Name Collection Type:: Clean-Voided Midstream Performed By: #### H EPATIC, CBC, BMP, LIPASE #### [address] RBC LM.HPF (Urine sed) [#/Area] 0 /[HPF] Normal 0-4 [facility] Comment on above: Order Comment: Name Collection Type:: Clean-Voided Midstream Performed By: #### H EPATIC, CBC, BMP, LIPASE #### [address] Specificy [place],Urine 1.019 Normal 1.001-1.030 [facility] Comment on above: Order Comment: Name Collection Type:: Clean-Voided Midstream Performed By: #### H EPATIC, CBC, BMP, LIPASE #### [address] [address] [place] Squamous Epithelial Cell,Urine 1-2 Normal 0-2 [facility] Comment on above: Order Comment: Name Collection Type:: Clean-Voided Midstream Performed By: #### H EPATIC, CBC, BMP, LIPASE #### [facility] [address] Urobilinogen,Urine Normal Normal Normal [facility] Comment on above: Order Comment: Name Collection Type:: Clean-Voided Midstream Performed By: #### H EPATIC, CBC, BMP, LIPASE #### [facility] [address] WBC,Urine None Seen Normal 0-4 [facility] Comment on above: Order Comment: Name Collection Type:: Clean-Voided Midstream Performed By: #### H EPATIC, CBC, BMP, LIPASE #### [facility] [address] [place] [address] Eosinophils Auto (Bld) [#/Vo l]Ordered By: Conner Griffith on 10-26-2022 Eosinophils (Bld) [#/Vol] 0.2 10*3/uL 0.0-0.45 [facility] Eosinophils/100 WBC Auto (Bl d)Ordered By: Conner Griffith on 10-26-2022 Eosinophils/100 WBC (Bld) 3.3 % . [facility] Erythrocyte distribution wid th Auto (RBC) [Ratio]Ordered By: Conner Griffith on 10-26-2022 Erythrocyte distribution width (RBC) [Ratio] 14.5 % 11.9-15.3 [facility] Estimated glomerular filtrat ion rate (GFR) non- AmericanOrdered By: Conner Griffith on 10-26-2022 GFR/1.73 sq M.predicted among non-blacks MDRD (S/P/Bld) [Vol rate/Area] > 60 mL/Min [facility] Globulin Calc (S) [Mass/Vol] Ordered By: Conner Griffith on 10-26-2022 Globulin (S) [Mass/Vol] 3.2 g/dL [facility] Hematocrit Auto (Bld) [Volum e fraction]Ordered By: Conner Griffith on 10-26-2022 Hematocrit (Bld) [Volume fraction] 36.7 % 34.0-46.4 [facility] Hemoglobin [Mass/volume] in BloodOrdered By: Conner Griffith on 10-26-2022 Hemoglobin (Bld) [Mass/Vol] 12.1 g/dL 11.8-15.4 [facility] Ketones Auto test strip (U) [Mass/Vol]Ordered By: Conner Griffith on 10-26-2022 Ketones (U) [Mass/Vol] Negative Negative [facility] Laboratory - Chemistry and C hemistry - challengeOrdered By: Conner Griffith on 10-26-2022 Lipase [Catalytic activity/Vol] 37.0 U/L [facility] Laboratory - CoagulationOrde red By: Conner Griffith on 10-26-2022 PT Coag (PPP) [Time] 10.6 s 9.0-12.9 [facility] Laboratory - UrinalysisOrder ed By: Cnoner Griffith on 10-26-2022 Hyaline casts LM Ql (Urine sed) None seen [LPF] 0-8 [facility] Lactic Acidon 10-26-2022 Lactate [Moles/Vol] 1.0 mmol/L Normal 0.5-2.2 [facility] Comment on above: Result Comment: PERF ORMED BY: [place] [address] PATHOLOGIST [employer]ILRO[employer] SIGNAL TECHNICIAN ROOSEVELT KEYES M.D. Performed By: #### H EPATIC, CBC, BMP, LIPASE #### [address] Leukocytes [#/volume] correc jun for nucleated erythrocytes in Blood by Automated counOrdered By: Conner Griffith on 10-26-2022 WBC corrected for nucl RBC Auto (Bld) [#/Vol] 6.3 10*3/uL 3.8-11.6 [facility] Lipaseon 10-26-2022 Lipase [Catalytic activity/Vol] 37.0 U/L Normal [facility] Comment on above: Result Comment: PERF ORMED BY: [address] [address] PATHOLOGIST [employer]ILRO[employer] SIGNAL TECHNICIAN ROOSEVELT KEEYS M.D. Performed By: #### H EPATIC, CBC, BMP, LIPASE #### [facility] [address] Lymphocytes Auto (Bld) [#/Vo l]Ordered By: Conner Griffith on 10-26-2022 Lymphocytes (Bld) [#/Vol] 1.9 10*3/uL 1.00-4.8 [facility] Lymphocytes/100 WBC Auto (Bl d)Ordered By: Conner Griffith on 10-26-2022 Lymphocytes/100 WBC (Bld) 29.7 % . [facility] MCH Auto (RBC) [Entitic mass ]Ordered By: Conner Griffith on 10-26-2022 MCH (RBC) [Entitic mass] 29.3 pg 24.7-34.3 [facility] MCHC Auto (RBC) [Mass/Vol]Or dered By: Conner Griffith on 10-26-2022 MCHC (RBC) [Mass/Vol] 33.1 g/dL 32.0-35.0 [facility] MCV Auto (RBC) [Entitic vol] Ordered By: Conner Griffith on 10-26-2022 MCV (RBC) [Entitic vol] 88.5 fL 80-100 [facility] Monocyte distribution width [Entitic volume] in Blood by AutomatedOrdered By: Conner Griffith on 10-26-2022 Monocyte distribution width Auto (Bld) [Entitic vol] 16.27 % 0.00-20.00 [facility] Monocytes Auto (Bld) [#/Vol] Ordered By: Conner Griffith on 10-26-2022 Monocytes (Bld) [#/Vol] 0.4 10*3/uL 0.0-0.8 [facility] Monocytes/100 WBC Auto (Bld) Ordered By: Conner Griffith on 10-26-2022 Monocytes/100 WBC (Bld) 7.1 % . [facility] Neutrophils Auto (Bld) [#/Vo l]Ordered By: Conner Griffith on 10-26-2022 Neutrophils (Bld) [#/Vol] 3.7 10*3/uL 1.8-7.7 [facility] Neutrophils/100 WBC Auto (Bl d)Ordered By: Conner Griffith on 10-26-2022 Neutrophils/100 WBC (Bld) 59.3 % . [facility] Nitrite Test strip Ql (U)Ord ered By: Conner Griffith on 10-26-2022 Nitrite Ql (U) Negative Negative [facility] No Panel InformationOrdered By: Conner Griffith on 10-26-2022 Estimated GFR () > 60 mL/Min [facility] Comment on above: GFR estimated refere nce range: According to KDOQI guidelines, <60 ml/min/1.73m2 is sufficient to diagnose a patient with chronic kidney disease. Pharmacy Creatinine Clearance (Chem 93.01 [facility] Nucleated erythrocytes [Pres ence] in Blood by Automated countOrdered By: Conner Griffith on 10-26-2022 Nucleated RBC Auto Ql (Bld) 0.3 /100{WBC} 0-0.5 [facility] Partial Thromboplastin Timeo n 10-26-2022 aPTT Coag (Bld) [Time] 30.8 s Normal 25.1-36.5 [facility] Comment on above: Result Comment: PERF ORMED BY: [place] [address] PATHOLOGIST [employer]ILRO[employer] SIGNAL TECHNICIAN ROOSEVELT KEYES M.D. Performed By: #### H EPATIC, CBC, BMP, LIPASE #### [address] Platelet mean volume Auto (B ld) [Entitic vol]Ordered By: Conner Griffith on 10-26-2022 Platelet mean volume (Bld) [Entitic vol] 7.5 fL 6.3-10.7 [facility] Platelet poor plasma interna tional normalized ratio (INR) by coagulation assay (relatOrdered By: Conner Griffith on 10-26-2022 INR Coag (PPP) [Relative time] 0.9 {INR} [facility] Comment on above: INR Therapeutic Rang [...] 10-26-2022 Platelets (Bld) [#/Vol] 379 10*3/uL 150-450 [facility] Protein Auto test strip (U) [Mass/Vol]Ordered By: Conner Griffith on 10-26-2022 Protein (U) [Mass/Vol] Negative Negative [facility] Protein [Mass/volume] in Ser um or PlasmaOrdered By: Conner Griffith on 10-26-2022 Protein [Mass/Vol] 6.8 g/dL 6.1-7.9 [facility] Prothrombin Time INRon 10-26 INR Coag (PPP) [Relative time] 0.9 {INR} Normal [facility] Comment on above: Result Comment: INR [...] #### H EPATIC, CBC, BMP, LIPASE #### [facility] [address] [place] [address] [place] PT Coag (PPP) [Time] 10.6 s Normal 9.0-12.9 [facility] Comment on above: Performed By: #### H EPATIC, CBC, BMP, LIPASE #### [facility] [address] [place] [address] [place] RBC Auto (Bld) [#/Vol]Ordere d By: Conner Griffith on 10-26-2022 RBC (Bld) [#/Vol] 4.14 10*6/uL 3.60-5.00 [facility] Serum or plasma alanine cooley otransferase measurement without P-5'-P (enzymatic activiOrdered By: Conner Griffith on 10-26-2022 ALT No additional P-5'-P [Catalytic activity/Vol] 18 U/L 10-60 [facility] Serum or plasma albumin/glob ulin mass ratioOrdered By: Conner Griffith on 10-26-2022 Albumin/Globulin [Mass ratio] 1.1 {ratio} [facility] Serum or plasma alkaline augustin sphatase measurement (enzymatic activity/volume)Ordered By: Conner Griffith on 10-26-2022 ALP [Catalytic activity/Vol] 121 U/L 32-92 [facility] Serum or plasma anion gap de terminationOrdered By: Conner Griffith on 10-26-2022 Anion gap [Moles/Vol] 11.3 mmol/L 6.0-15.0 [facility] Serum or plasma aspartate am inotransferase measurement (enzymatic activity/volume)Ordered By: Conner Griffith on 10-26-2022 AST [Catalytic activity/Vol] 19 U/L 10-42 [facility] Serum or plasma calcium julee urement (mass/volume)Ordered By: Conner Griffith on 10-26-2022 Calcium [Mass/Vol] 8.9 mg/dL 8.2-10.2 [facility] Serum or plasma chloride julio surement (moles/volume)Ordered By: Conner Griffith on 10-26-2022 Chloride [Moles/Vol] 108 mmol/L 95-114 [facility] Serum or plasma glucose julee urement (mass/volume)Ordered By: Conner Griffith on 10-26-2022 Glucose [Mass/Vol] 95 mg/dL 70-100 [facility] Comment on above: ADA recommended refe rence rangeRandom Glucose Reference Range is dependent on time and content of last meal. Glucose of more than 200 mg/dL in a nonstressed, ambulatory subject supports the diagnosis of Diabetes Mellitus. Serum or plasma potassium me asurement (moles/volume)Ordered By: Conner Griffith on 10-26-2022 Potassium [Moles/Vol] 3.4 mmol/L 3.5-5.1 [facility] Serum or plasma sodium measu rement (moles/volume)Ordered By: Conner Griffith on 10-26-2022 Sodium [Moles/Vol] 141 mmol/L 136-146 [facility] Serum or plasma total biliru bin measurement (mass/volume)Ordered By: Conner Griffith on 10-26-2022 Bilirubin [Mass/Vol] 0.4 mg/dL 0.3-1.2 [facility] Serum or plasma total carbon dioxide measurement (moles/volume)Ordered By: Conner Griffith on 10-26-2022 CO2 [Moles/Vol] 25.1 mmol/L 22.0-30.0 [facility] Serum or plasma urea nitroge n measurement (mass/volume)Ordered By: Conner Griffith on 10-26-2022 Urea nitrogen [Mass/Vol] 18 mg/dL 9-23 [facility] Specific gravity Auto test s trip (U) [Rel density]Ordered By: Conner Griffith on 10-26-2022 Specific gravity (U) [Rel density] 1.019 1.001-1.030 [facility] Squamous epithelial cells de tection in urine sediment by light microscopyOrdered By: Conner Griffith on 10-26-2022 Epithelial cells.squamous LM Ql (Urine sed) 1-2 [HPF] 0-2 [facility] Urine bacteria detection by automated methodOrdered By: Conner Griffith on 10-26-2022 Bacteria Auto Ql (U) None seen None Seen [facility] Urine clarity by refractomet ry automatedOrdered By: Conner Griffith on 10-26-2022 Clarity Refractometry automated (U) Clear Clear [facility] Urine glucose measurement by automated test strip (mass/volume)Ordered By: Conner Griffith on 10-26-2022 Glucose Auto test strip (U) [Mass/Vol] Normal mg/dL Normal [facility] Urine hemoglobin detection b y automated test stripOrdered By: Conner Griffith on 10-26-2022 Hemoglobin Auto test strip Ql (U) Negative Negative [facility] Urine lactic acid measuremen tOrdered By: Conner Griffith on 10-26-2022 Lactate (U) [Moles/Vol] 1.0 mmol/L 0.5-2.2 [facility] Urine leukocyte esterase det ection by automated test stripOrdered By: Conner Griffith on 10-26-2022 Leukocyte esterase Auto test strip Ql (U) 1+ Negative [facility] Urobilinogen Auto test strip (U) [Mass/Vol]Ordered By: Conner Griffith on 10-26-2022 Urobilinogen (U) [Mass/Vol] Normal mg/dL Normal [facility] WBC Auto (Bld) [#/Vol]Ordere d By: Conner Griffith on 10-26-2022 WBC (Bld) [#/Vol] 6.3 10*3/uL 3.8-11.6 [facility] pH Auto test strip (U)Ordere d By: Conner Griffith on 10-26-2022 pH (U) 6.5 [pH] 5.0-9.0 [facility] Auth for Release of Medical Recordson 10-25-2022 Auth for Release of Medical Records [id number]#[id number]:127 Normal [facility] CBC AUTO DIFFon 09-21-2022 BASO # 0.0 103/ul Normal 0.0-0.1 [facility] Comment on above: Performed By: #### C BC ####[facility] W[address]ftirfv[address] [place], [place] [address]Dr. Tadeo Smyth Basophils/100 WBC (Bld) 0.4 % Normal 0.2-2.0 [facility] Comment on above: Performed By: #### C BC ####[facility] Kkcxpuzoio[address] [place], [place] [address]Dr. Tadeo Smyth EO # 0.1 103/ul Normal 0.0-0.7 [facility] Comment on above: Performed By: #### C BC ####[facility] Jbbbljbwal[address] [place], [place] [address]Dr. Tadeo Smyth Eosinophils/100 WBC (Bld) 1.8 % Normal 0.9-7.0 [facility] Comment on above: Performed By: #### C BC ####[facility] Wqlusbhjou[address] [place], [place] [address]Dr. Tadeo Smyth Erythrocyte distribution width (RBC) [Ratio] 13.8 % Normal 11.0-15.0 [facility] Comment on above: Performed By: #### C BC ####[facility] [address] [place] [address]Dr. Tadeo Smyth Hematocrit (Bld) [Volume fraction] 41.0 % Normal 36.0-48.0 [facility] Comment on above: Performed By: #### C BC ####[facility] Tqrzknmzmv[address] [place], [place] [address]DrNeo Tadeo Smyth Hemoglobin (Bld) [Mass/Vol] 13.3 g/dL Normal 12.0-16.0 [facility] Comment on above: Performed By: #### C BC ####[facility] [address]qtf[address]oh[address] [place], [place] [address]DrNeo Smyth IG # 0.01 10e3/ul Normal 0.00-0.03 [facility] Comment on above: Performed By: #### C BC ####[facility] Qxcxrwpmql[address] [place], [place] [address]Dr. Margotnicole Smyth IG % 0.1 % Normal 0.0-0.5 [facility] Comment on above: Performed By: #### C BC ####[facility] Narndexwwx[address] [place], [place] [address]DrNeo Tadeo Smyth LYMPH # 1.7 103/ul Normal 1.2-3.8 [facility] Comment on above: Performed By: #### C BC ####[facility] Ctzgkqhdjj[address] [place], [place] [address]DrNeo Margotnicole Smyth Lymphocytes/100 WBC (Bld) 24.8 % Normal 20.5-60.0 [facility] Comment on above: Performed By: #### C BC ####[facility] Jdnxqeihtn[address] [place], [place] [address]DrNeo Smyth MANUAL DIFF REQ NO Normal [facility] Comment on above: Performed By: #### C BC ####[facility] H[address]fwsrlsv[address] [place], [place] [address]DrNeo Smyth MCH (RBC) [Entitic mass] 29.0 pg Normal 26.7-34.0 [facility] Comment on above: Performed By: #### C BC ####[facility] [address] [place] [address]DrNeo Smyth MCHC (RBC) [Mass/Vol] 32.4 g/dL Normal 29.9-35.2 [facility] Comment on above: Performed By: #### C BC ####[facility] Un[address]wewkm[address] [place] [address]DrNeo Smyth MCV (RBC) [Entitic vol] 89.3 fL Normal 81.0-99.0 [facility] Comment on above: Performed By: #### C BC ####[facility] Obdujqfonk[address] [place], [place] [address]DrNeo Smtyh MONO # 0.5 103/ul Normal 0.3-0.8 [facility] Comment on above: Performed By: #### C BC ####[facility] Qmnsaxhkqz01[address] [place], [place] [address]DrNeo Smyth Monocytes/100 WBC (Bld) 6.9 % Normal 1.7-12.0 [facility] Comment on above: Performed By: #### C BC ####[facility] Wzypbjmjsv[address] [place], [place] [address]DrNeo Smyth NEUT # 4.5 103/ul Normal 1.4-6.5 [facility] Comment on above: Performed By: #### C BC ####[facility] Bvfhzoaynx[address] [place], [place] [address]DrNeo Smyth Neutrophils/100 WBC (Bld) 66.0 % Normal 43.0-75.0 [facility] Comment on above: Performed By: #### C BC ####[facility] Coglgfdhdt[address] [place], [place] [address]DrNeo Smyth Platelet mean volume (Bld) [Entitic vol] 8.8 fL Critically low 9.5-13.5 [facility] Comment on above: Performed By: #### C BC ####[facility] Hoxlyuvqbx[address] [place], [place] [address]DrNeo Smyth PLT 384 103/ul Normal 150-450 [facility] Comment on above: Performed By: #### C BC ####[facility] [address]pr[address] [place] [address]Dr. Tadeo Smyth RBC 4.59 106/ul Normal 4.20-5.40 [facility] Comment on above: Performed By: #### C BC ####[facility] Rts[address]ccuze[address] [place], [place] [address]Dr. Tadeo Smyth WBC 6.8 103/ul Normal 4.0-11.0 [facility] Comment on above: Performed By: #### C BC ####[facility] Orgmfhrvmx[address] [place], [place] [address]DrNeo Smyth PROF CHEM 8 (BAS METB)on Anion gap [Moles/Vol] 13.8 mmol/L Normal [facility] Comment on above: Performed By: #### B MP ####[facility] Nclsxyivon[address] [place], [place] [address]DrNeo Smyth Calcium [Mass/Vol] 9.6 mg/dL Normal 8.5-10.1 [facility] Comment on above: Performed By: #### B MP ####[facility] Ehyueyhlyp[address] [place], [place] [address]DrNeo Smyth Chloride [Moles/Vol] 106 mmol/L Normal 98-107 [facility] Comment on above: Performed By: #### B MP ####[facility] Vjrfuvpisw[address] [place], [place] [address]DrNeo Smyth CO2 [Moles/Vol] 25.9 mmol/L Normal 21.0-32.0 [facility] Comment on above: Performed By: #### B MP ####[facility] Dqfhzbvigo[address] [place], [place] [address]Dr. Tadeo Smyth Creatinine [Mass/Vol] 0.92 mg/dL Normal 0.55-1.02 [facility] Comment on above: Performed By: #### B MP ####[facility] [address]if[address] [place], [place] [address]DrNeo Smyth EGFR-AF ERITREAN >60 Normal >=60 [facility] Comment on above: Performed By: #### B MP ####[facility] [address] [place] [id number]. Tadeo Smyth EGFR-NON AF ERITREAN >60 Normal >=60 [facility] Comment on above: Performed By: #### B MP ####[facility] Cdspubldez[address] [place] [id number]. Margotnicole Haja Glucose [Mass/Vol] 98 mg/dL Normal 74-106 [facility] Comment on above: Performed By: #### B MP ####[facility] V[address]pq[address] [place] [address]Dr. Tadeo Smyth Potassium [Moles/Vol] 3.7 mmol/L Normal 3.5-5.1 [facility] Comment on above: Performed By: #### B MP ####[facility] [address]im[address] [place] [address]Dr. Tadeo Smyth Sodium [Moles/Vol] 142 mmol/L Normal 136-145 [facility] Comment on above: Performed By: #### B MP ####[facility] [address] [place] [address]Dr. Tadeo Haja Urea nitrogen [Mass/Vol] 19.0 mg/dL Critically high 7.0-18.0 [facility] Comment on above: Performed By: #### B MP ####[facility] [address] [place] [address]Dr. Tadeo Smyth Urea nitrogen/Creatinine [Mass ratio] 20.7 mg/mg Normal [facility] Comment on above: Performed By: #### B MP ####[facility] [address]lp[address] [place] [address]Dr. Tadeo Haja XR KUB 1 VIEWon 09-21-2022 XR KUB 1 VIEW Normal [facility] Lab Reportson 09-20-2022 Lab Reports [id number]#[id number]:127 Normal [facility] RAD - CT Reporton 09-20-2022 RAD - CT Report [id number]#[id number]:127 Normal [facility] RAD - MISCon 09-20-2022 RAD - MIS [id number]#1.00CD:127 Normal [facility] AMYLASEon 09-18-2022 Amylase [Catalytic activity/Vol] 58 U/L Normal 25-115 [facility] Comment on above: Performed By: #### L IPA, CMP, VIJI ####[facility] Xrzryxlnhr[address] [place], [place] [address]Dr. Tadeo Smyth CBC AUTO DIFFon 09-18-2022 BASO # 0.0 103/ul Normal 0.0-0.1 [facility] Comment on above: Performed By: #### C BC ####[facility] Bsuyhxwbsh[address] [place], [place] [address]Dr. Tadeo Smyth Basophils/100 WBC (Bld) 0.3 % Normal 0.2-2.0 [facility] Comment on above: Performed By: #### C BC ####[facility] Jdnpbfmpyc[address] [place], [place] [address]Dr. Tadeo Smyth EO # 0.1 103/ul Normal 0.0-0.7 [facility] Comment on above: Performed By: #### C BC ####[facility] Tkcwkaokfi[address] [place], [place] [address]Dr. Tadeo Smyth Eosinophils/100 WBC (Bld) 1.8 % Normal 0.9-7.0 [facility] Comment on above: Performed By: #### C BC ####[facility] Clduvxyifp[address] [place], [place] [address]Dr. Tadeo Smyth Erythrocyte distribution width (RBC) [Ratio] 13.7 % Normal 11.0-15.0 [facility] Comment on above: Performed By: #### C BC ####[facility] Tuoyjyrcfj[address] [place], [place] [address]Dr. Tadeo Smyth Hematocrit (Bld) [Volume fraction] 37.4 % Normal 36.0-48.0 [facility] Comment on above: Performed By: #### C BC ####[facility] [address]cou[address] [place] [address]Dr. Tadeo Smyth Hemoglobin (Bld) [Mass/Vol] 12.3 g/dL Normal 12.0-16.0 [facility] Comment on above: Performed By: #### C BC ####[facility] [address]xvxq[address] [place] [address]Dr. Tadeo Smyth IG # 0.02 10e3/ul Normal 0.00-0.03 [facility] Comment on above: Performed By: #### C BC ####[facility] P[address]vxfqgc27[address] [place] [address]Dr. Tadeo Smyth IG % 0.3 % Normal 0.0-0.5 [facility] Comment on above: Performed By: #### C BC ####[facility] Krbqdvyyiv[address] [place], [place] [address]Dr. Tadeo Smyth LYMPH # 2.2 103/ul Normal 1.2-3.8 [facility] Comment on above: Performed By: #### C BC ####[facility] [address] [place] [address]Dr. Tadeo Smyth Lymphocytes/100 WBC (Bld) 29.3 % Normal 20.5-60.0 [facility] Comment on above: Performed By: #### C BC ####[facility] [address] [place] [address]Dr. Tadeo Smyth MANUAL DIFF REQ NO Normal [facility] Comment on above: Performed By: #### C BC ####[facility] Z[address]hfhh[address] [place], [place] [address]Dr. Tadeo Smyth MCH (RBC) [Entitic mass] 29.0 pg Normal 26.7-34.0 [facility] Comment on above: Performed By: #### C BC ####[facility] Xgdxssqjzk44[address] [place] [phone]. Tadeo Smyth MCHC (RBC) [Mass/Vol] 32.9 g/dL Normal 29.9-35.2 [facility] Comment on above: Performed By: #### C BC ####[facility] [address]ves[address]qc4[address] [place] [address]Dr. Tadeo Smyth MCV (RBC) [Entitic vol] 88.2 fL Normal 81.0-99.0 [facility] Comment on above: Performed By: #### C BC ####[facility] N[address]lzai[address] [place] [address]Dr. Tadeo Smyth MONO # 0.5 103/ul Normal 0.3-0.8 [facility] Comment on above: Performed By: #### C BC ####[facility] Cwvntkpmzb[address] [place], [place] [address]Dr. Tadeo Smyth Monocytes/100 WBC (Bld) 6.4 % Normal 1.7-12.0 [facility] Comment on above: Performed By: #### C BC ####[facility] Tlbypxchic[address] [place], [place] [address]Dr. Tadeo Smyth NEUT # 4.7 103/ul Normal 1.4-6.5 [facility] Comment on above: Performed By: #### C BC ####[facility] Lqhhgaydoi[address] [place], [place] [address]Dr. Tadeo Smyth Neutrophils/100 WBC (Bld) 61.9 % Normal 43.0-75.0 [facility] Comment on above: Performed By: #### C BC ####[facility] Ugqclcuett22[address] [place], [place] [address]Dr. Tadeo Smyth Platelet mean volume (Bld) [Entitic vol] 9.0 fL Critically low 9.5-13.5 [facility] Comment on above: Performed By: #### C BC ####[facility] Nvfoblvezu[address] [place], [place] [address]Dr. Tadeo Smyth PLT 395 103/ul Normal 150-450 [facility] Comment on above: Performed By: #### C BC ####[facility] Eetzoxzpoi[address] [place], [place] [address]Dr. Tadeo Smyth RBC 4.24 106/ul Normal 4.20-5.40 [facility] Comment on above: Performed By: #### C BC ####[facility] [address] [place] [address]Dr. Margotnicole Haja WBC 7.6 103/ul Normal 4.0-11.0 [facility] Comment on above: Performed By: #### C BC ####[facility] Qwc[address]ocn[address] [place] [address]Dr. Marg[address] H[address] CT ABD/PELV W CONon 09-18-[address] ABD/PELV W CON Normal [facility] ER URINE PROFILEon 3 Bilirubin Ql (U) SMALL Abnormal NEGATIVE [facility] Comment on above: Performed By: #### Matthew FRANCISCO UMICRO ####[facility] Ogucatrpuz[address] [place], [place] [address]Dr. Tadeo Smyth Clarity (U) CLEAR Normal CLEAR [facility] Comment on above: Performed By: #### Matthew FRANCISCO UMICRO ####[facility] Ceaqowhwat[address] [place], [place] [address]Dr. Tadeo Smyth Color (U) DK. YELLOW Normal YELLOW [facility] Comment on above: Performed By: #### Matthew FRANCISCO UMICRO ####[facility] Ejoeultaxq[address] [place], [place] [address]Dr. Tadeo CAMARGOD A micrscopic examina tion will be performed if indicated. Normal [facility] Comment on above: Performed By: #### Matthew FRANCISCO UMICRO ####[facility] Wnezwwelqe[address] [place], [place] [address]Dr. Tadeo Smyth Glucose Ql (U) Negative Normal NEGATIVE [facility] Comment on above: Performed By: #### Matthew FRANCISCO UMICRO ####[facility] Zuzbzrpzqz[address] [place], [place] [address]Dr. Tadeo Smyth Hemoglobin Ql (U) SMALL Abnormal NEGATIVE [facility] Comment on above: Performed By: #### Matthew FRANCISCO UMICRO ####[facility] Pmpkpmcvnu[address] [place], [place] [address]Dr. Tadeo Smyth Ketones Ql (U) Negative Normal NEGATIVE [facility] Comment on above: Performed By: #### KAROL MERCHANT ####[facility] F[address] [place] [address]Dr. Tadeo Smyth LEUKOCYTES Negative Normal NEGATIVE [facility] Comment on above: Performed By: #### KAROL MERCHANT ####[facility] [address] [place] [address]Dr. Tadeo Smyth Nitrite Ql (U) Negative Normal NEGATIVE [facility] Comment on above: Performed By: #### KAROL MERCHANT ####[facility] F[address]wur[address] [place] [address]Dr. Tadeo Smyth pH (U) 5.5 [pH] Normal 5-9 [facility] Comment on above: Performed By: #### KAROL MERCHANT ####[facility] [address] [place] [address]Dr. Tadeo Smyth SPEC GRAVITY >=1.030 Abnormal 1.005-<=1.0 25 [facility] Comment on above: Performed By: #### KAROL MERCHANT ####[facility] Tfs[address]rujrk[address] [place], [place] [address]Dr. Tadeo Smyth UA PROTEIN TRACE Normal NEGATIVE/ TRACE [facility] Comment on above: Performed By: #### KAROL MERCHANT ####[facility] [address]cx[address]on[address] [place] [address]Dr. Tadeo Smyth UR MICRO IND INDICATED Normal [facility] Comment on above: Performed By: #### KAROL MERCHANT ####[facility] [address]xajiklqgy[address] [place], [place] [address]Dr. Tadeo Smyth Urobilinogen Qn (U) 0.2 {Benito'U}/dL Normal 0.2 - 1. 0 [facility] Comment on above: Performed By: #### KAROL MERCHANT ####[facility] [address]qhnmtynmd[address] [place], [place] [address]Dr. Tadeo Smyth LACTATE/LACTIC ACIDon 2022 Lactate [Moles/Vol] 1.1 mmol/L Normal 0.4-1.9 [facility] Comment on above: Performed By: #### L SOLANGE ####[facility] [address]ieh[address] [place] [address]Dr. Tadeo Smyth LIPASEon 09-18-2022 Lipase [Catalytic activity/Vol] 75.0 U/L Normal 73.0-393.0 [facility] Comment on above: Performed By: #### L IPA, CMP, VIJI ####[facility] [address] [place] [address]Dr. Tadeo Smyth PROF 14(COMP METB)on 023 Albumin [Mass/Vol] 3.4 g/dL Normal 3.4-5.0 [facility] Comment on above: Performed By: #### L IPA, CMP, VIJI ####[facility] Ljsexlyacm[address] [place], [place] [address]Dr. Tadeo Smyth Albumin/Globulin [Mass ratio] 0.9 {ratio} Normal [facility] Comment on above: Performed By: #### L IPA, CMP, VIJI ####[facility] J[address]emwgatb[address] [place], [place] [address]Dr. Tadeo Smyth ALP [Catalytic activity/Vol] 164 U/L Critically high 46-116 [facility] Comment on above: Performed By: #### L IPA, CMP, VIJI ####[facility] Znzanvchcp[address] [place], [place] [address]Dr. Tadeo Smyth ALT [Catalytic activity/Vol] 29 U/L Normal 14-59 [facility] Comment on above: Performed By: #### L IPA, CMP, VIJI ####[facility] Qds[address]iofiw[address] [place] [address]Dr. Tadeo Smyth Anion gap [Moles/Vol] 12.3 mmol/L Normal [facility] Comment on above: Performed By: #### L IPA, CMP, VIJI ####[facility] Oungyjepel[address] [place], [place] [address]Dr. Tadeo Smyth AST [Catalytic activity/Vol] 30 U/L Normal 15-37 [facility] Comment on above: Performed By: #### L IPA, CMP, VIJI ####[facility] Lwdlrelxxw[address] [place], [place] [address]Dr. Tadeo Smyth Bilirubin [Mass/Vol] 0.3 mg/dL Normal 0.2-1.0 [facility] Comment on above: Performed By: #### L IPA CMP, VIJI ####[facility] F[address] [place] [address]Dr. Tadeo Smyth Calcium [Mass/Vol] 8.9 mg/dL Normal 8.5-10.1 [facility] Comment on above: Performed By: #### L IPA CMP, VIJI ####[facility] [address]hfcanuvxt[address] [place], [place] [address]Dr. Tadeo Smyth Chloride [Moles/Vol] 103 mmol/L Normal 98-107 [facility] Comment on above: Performed By: #### L IPA CMP, VIJI ####[facility] [address]os[address] [place], [place] [address]Dr. Tadeo Smyth CO2 [Moles/Vol] 27.8 mmol/L Normal 21.0-32.0 [facility] Comment on above: Performed By: #### L IPA, CMP, VIJI ####[facility] Volondiwgf[address] [place], [place] [address]Dr. Tadeo Smyth Creatinine [Mass/Vol] 0.89 mg/dL Normal 0.55-1.02 [facility] Comment on above: Performed By: #### L IPA CMP, VIJI ####[facility] Hisohydcul[address] [place], [place] [address]Dr. Tadeo Smyth EGFR-AF ERITREAN >60 Normal >=60 [facility] Comment on above: Performed By: #### L IPA, CMP, VIJI ####[facility] Ykcjyngfdn[address] [place], [place] [address]Dr. Tadeo Smyth EGFR-NON AF ERITREAN >60 Normal >=60 [facility] Comment on above: Performed By: #### L IPA, CMP, VIJI ####[facility] Kdbdbonlef[address] [place], [place] [address]Dr. Tadeo Smyth Globulin (S) [Mass/Vol] 3.9 g/dL Normal [facility] Comment on above: Performed By: #### L IPA, CMP, VIJI ####[facility] Cziozlwgfr[address] [place] [id number]. Tadeo Smyth Glucose [Mass/Vol] 96 mg/dL Normal 74-106 [facility] Comment on above: Performed By: #### L IPA, CMP, VIJI ####[facility] Woenggdgfx6[address] [place] [address]Dr. Tadeo Smyth Potassium [Moles/Vol] 4.1 mmol/L Normal 3.5-5.1 [facility] Comment on above: Performed By: #### L IPA, CMP, VIJI ####[facility] Gbzoaztaem[address] [place] [address]Dr. Tadeo Smyth Protein [Mass/Vol] 7.3 g/dL Normal 6.4-8.2 [facility] Comment on above: Performed By: #### L IPA, CMP, VIJI ####[facility] Uirqrqnyyz8[address] [place] [address]Dr. Tadeo Smyth Sodium [Moles/Vol] 139 mmol/L Normal 136-145 [facility] Comment on above: Performed By: #### L IPA, CMP, VIJI ####[facility] Aibhatfnul27[address] [place] [address]Dr. Tadeo Smyth Urea nitrogen [Mass/Vol] 19.0 mg/dL Critically high 7.0-18.0 [facility] Comment on above: Performed By: #### L IPA, CMP, VIJI ####[facility] Wpqxeauqpq299[address] [place] [address]Dr. Tadeo Smyth Urea nitrogen/Creatinine [Mass ratio] 21.3 mg/mg Normal [facility] Comment on above: Performed By: #### L IPA, CMP, VIJI ####[facility] Znlrhsduqo3364 [place] [address]Dr. Tadeo Smyth URINE MICROSCOPIC ONLYon BACTERIA TRACE Abnormal NONE SEEN [facility] Comment on above: Performed By: #### E KAROL FRANCISCO ####[facility] Ylotoyapkb[address] [place] [address]Dr. Tadeo Smyth Bacteria identified Cx Nom (U) NOT INDICATED Normal [facility] Comment on above: Performed By: #### SANDRO MERCHANTRO ####[facility] Udfdcsddyp[address] [place] [address]Dr. Margotnicole Haja CAST NONE SEEN Normal NONE SEEN [facility] Comment on above: Performed By: #### SANDRO MERCHANTRO ####[facility] Mtyfxiiimi4230 [place] [address]Dr. Tadeo Smyth Crystals LM Nom (Urine sed) SEEN Abnormal NONE SEEN [facility] Comment on above: Performed By: #### SANDRO MERCHANTRO ####[facility] Sxqahwxsac4[address] [place] [address]Dr. Tadeo Smyth Epithelial cells LM Ql (Urine sed) RARE Normal NONE SEEN /RARE [facility] Comment on above: Performed By: #### SANDRO MERCHANTRO ####[facility] Fcocpujbae[address] [place], [place] [address]Dr. Tadeo Smyth MUCOUS TRACE Abnormal NONE SEEN [facility] Comment on above: Performed By: #### Matthew FRANCISCO CHINEDURO ####[facility] Yezoqtmyuq8[address] [place], [place] [address]Dr. Tadeo Smyth RBC 0-2 Normal 0-2 [facility] Comment on above: Performed By: #### SANDRO MERCHANTRO ####[facility] Zsoxtqsbbp9[address] [place], [place] [address]Dr. Tadeo Smyth WBC 0-2 Abnormal NONE SEEN [facility] Comment on above: Performed By: #### KAROL MERCHANT ####[facility] Iganizzzwe[address] [place], [place] [address]Dr. Tadeo Smyth CBC AUTO DIFFon 09-14-2022 BASO # 0.0 103/ul Normal 0.0-0.1 [facility] Comment on above: Performed By: #### C BC ####[facility] Zoaytjqqvj[address] [place], [place] [address]Dr. Tadeo Smyth Basophils/100 WBC (Bld) 0.3 % Normal 0.2-2.0 [facility] Comment on above: Performed By: #### C BC ####[facility] Yfwtlerolt9265 [place] [phone]. Tadeo Smyth EO # 0.2 103/ul Normal 0.0-0.7 [facility] Comment on above: Performed By: #### C BC ####[facility] Duycbaxykq9217 [place] [address]Dr. Tadeo Smyth Eosinophils/100 WBC (Bld) 1.1 % Normal 0.9-7.0 [facility] Comment on above: Performed By: #### C BC ####[facility] Jvmkasfahb[address] [place], [place] [address]Dr. Tadeo Smyth Erythrocyte distribution width (RBC) [Ratio] 13.7 % Normal 11.0-15.0 [facility] Comment on above: Performed By: #### C BC ####[facility] Vohcukhrnq[address] [place], [place] [address]Dr. Tadeo Smyth Hematocrit (Bld) [Volume fraction] 41.3 % Normal 36.0-48.0 [facility] Comment on above: Performed By: #### C BC ####[facility] Jsnoxynzps[address] [place], [place] [address]Dr. Tadeo Smyth Hemoglobin (Bld) [Mass/Vol] 13.6 g/dL Normal 12.0-16.0 [facility] Comment on above: Performed By: #### C BC ####[facility] Llyuwnxfsc[address] [place], [place] [address]Dr. Tadeo Smyth IG # 0.05 10e3/ul Critically high 0.00-0.03 [facility] Comment on above: Performed By: #### C BC ####[facility] Molcualuxo[address] [place], [place] [address]Dr. Tadeo Smyth IG % 0.4 % Normal 0.0-0.5 [facility] Comment on above: Performed By: #### C BC ####[facility] Jqwdgxmiyx12[address] [place], [place] [address]Dr. Tadeo Smyth LYMPH # 2.2 103/ul Normal 1.2-3.8 [facility] Comment on above: Performed By: #### C BC ####[facility] Gpatxdtljo2613 [place] [phone]. Tadeo Smyth Lymphocytes/100 WBC (Bld) 16.3 % Critically low 20.5-60.0 [facility] Comment on above: Performed By: #### C BC ####[facility] Abezxbbxgg8793 [place] [phone]. Tadeo Smyth MANUAL DIFF REQ NO Normal [facility] Comment on above: Performed By: #### C BC ####[facility] Xwkvgilltk5051 [place] [phone]. Tadeo Smyth MCH (RBC) [Entitic mass] 28.9 pg Normal 26.7-34.0 [facility] Comment on above: Performed By: #### C BC ####[facility] Vvlsxtzpev3040 [place] [address]Dr. Tadeo Smyth MCHC (RBC) [Mass/Vol] 32.9 g/dL Normal 29.9-35.2 [facility] Comment on above: Performed By: #### C BC ####[facility] Zoktttvxhw9956 [place] [address]Dr. Tadeo Smyth MCV (RBC) [Entitic vol] 87.9 fL Normal 81.0-99.0 [facility] Comment on above: Performed By: #### C BC ####[facility] Bivbudveio3914 [place] [address]Dr. Tadeo Haja MONO # 0.7 103/ul Normal 0.3-0.8 [facility] Comment on above: Performed By: #### C BC ####[facility] Zexoftlqht2131 [place] [address]Dr. Tadeo Smyth Monocytes/100 WBC (Bld) 5.1 % Normal 1.7-12.0 [facility] Comment on above: Performed By: #### C BC ####[facility] Gqafwmypne5407 [place] [address]Dr. Tadeo Smyth NEUT # 10.3 103/ul Critically high 1.4-6.5 [facility] Comment on above: Performed By: #### C BC ####[facility] Ctvdrpodyp0638 [place] [address]Dr. Tadeo Smyth Neutrophils/100 WBC (Bld) 76.8 % Critically high 43.0-75.0 [facility] Comment on above: Performed By: #### C BC ####[facility] Espyantmte5206 [place] [phone]. Tadeo Smyth Platelet mean volume (Bld) [Entitic vol] 8.8 fL Critically low 9.5-13.5 [facility] Comment on above: Performed By: #### C BC ####[facility] Zgqykjpvxg2509 [place] [phone]. Tadeo Smyth PLT 438 103/ul Normal 150-450 [facility] Comment on above: Performed By: #### C BC ####[facility] Hbawnerghw[address] [place], [place] [address]Dr. Tadeo Haja RBC 4.70 106/ul Normal 4.20-5.40 [facility] Comment on above: Performed By: #### C BC ####[facility] Vrohljttug[address] [place], [place] [address]Dr. Tadeo Smyth WBC 13.4 103/ul Critically high 4.0-11.0 [facility] Comment on above: Performed By: #### C BC ####[facility] Twlobrjgaw[address] [place], [place] [address]Dr. Tadeo Smyth ER URINE PROFILEon 3 Bilirubin Ql (U) Negative Normal NEGATIVE [facility] Comment on above: Performed By: #### SANDRO MERCHANTRO ####[facility] Lpcmanplxk8[address] [place] [address]Dr. aTdeo Haja Clarity (U) CLEAR Normal CLEAR [facility] Comment on above: Performed By: #### SANDRO MERCHANTRO ####[facility] Ghyvawwcto7[address] [place] [address]Dr. Tadeo Smyth Color (U) LT. YELLOW Normal YELLOW [facility] Comment on above: Performed By: #### SANDRO MERCHANTRO ####[facility] Mujmbcmwae[address] [place], [place] [address]Dr. Tadeo ENG A micrscopic examina tion will be performed if indicated. Normal [facility] Comment on above: Performed By: #### KAROL MERCHANT ####[facility] Cybkuahkmm7755 [place] [address]Dr. Tadeo Smyth Glucose Ql (U) Negative Normal NEGATIVE [facility] Comment on above: Performed By: #### KAROL MERCHANT ####[facility] Akvavhdeok[address] [place] [address]Dr. Tadeo Smyth Hemoglobin Ql (U) TRACE-INTACT Abnormal NEGATIVE [facility] Comment on above: Performed By: #### KAROL MERCHANT ####[facility] Tkogoeqppd[address] [place], [place] [address]Dr. Tadeo Smyth Ketones Ql (U) Negative Normal NEGATIVE [facility] Comment on above: Performed By: #### KAROL MERCHANT ####[facility] Zhbhsukuxh7[address] [place], [place] [address]Dr. Tadeo Smyth LEUKOCYTES Negative Normal NEGATIVE [facility] Comment on above: Performed By: #### KAROL MERCHANT ####[facility] Rvcnhsajre[address] [place], [place] [address]Dr. Tadeo Smyth Nitrite Ql (U) Negative Normal NEGATIVE [facility] Comment on above: Performed By: #### KAROL MERCHANT ####[facility] Bkzfqrivqy[address] [place], [place] [address]Dr. Tadeo Smyth pH (U) 6.5 [pH] Normal 5-9 [facility] Comment on above: Performed By: #### KAROL MERCHANT ####[facility] Sfpgtpunha[address] [place], [place] [address]Dr. Tadeo Smyth SPEC GRAVITY 1.020 Normal 1.005-<=1.0 25 [facility] Comment on above: Performed By: #### KAROL MERCHANT ####[facility] Njtrclsdaw6091 [place] [address]Dr. Tadeo Symth UA PROTEIN Negative Normal NEGATIVE/ TRACE [facility] Comment on above: Performed By: #### KAROL MERCHANT ####[facility] Nwuymsazyp5310 [place] [address]Dr. Tadeo Smyth UR MICRO IND INDICATED Normal [facility] Comment on above: Performed By: #### KAROL MERCHANT ####[facility] Hftnrtxxog1473 [place] [address]Dr. Tadeo Smyth Urobilinogen Qn (U) 0.2 {Benito'U}/dL Normal 0.2 - 1. 0 [facility] Comment on above: Performed By: #### SANDRO MERCHANTRO ####[facility] Shfqcyyxij8750 [place] [address]Dr. Tadeo Smyth LIPASEon 09-14-2022 Lipase [Catalytic activity/Vol] 117.0 U/L Normal 73.0-393.0 [facility] Comment on above: Performed By: #### H STROPN, CMP, LIPA ####[facility] Azcetwqdds6964 [place] [address]Dr. Tadeo Smyth PROF 14(COMP METB)on 023 Albumin [Mass/Vol] 3.5 g/dL Normal 3.4-5.0 [facility] Comment on above: Performed By: #### H STROPN, CMP, LIPA ####[facility] Brizwtvpge1665 [place] [address]Dr. Tadeo Smyth Albumin/Globulin [Mass ratio] 0.8 {ratio} Normal [facility] Comment on above: Performed By: #### H STROPN, CMP, LIPA ####[facility] Xmbtarufmm3926 [place] [address]Dr. Tadeo Smyth ALP [Catalytic activity/Vol] 180 U/L Critically high 46-116 [facility] Comment on above: Performed By: #### H STROPN, CMP, LIPA ####[facility] Vcobieedxv3760 [place] [address]Dr. Tadeo Smyth ALT [Catalytic activity/Vol] 25 U/L Normal 14-59 [facility] Comment on above: Performed By: #### H STROPN, CMP, LIPA ####[facility] Codxtlbkzg5059 [place] [address]Dr. Tadeo Smyth Anion gap [Moles/Vol] 14.4 mmol/L Normal [facility] Comment on above: Performed By: #### H STROPN, CMP, LIPA ####[facility] Ugworfanlu3122 [place] [address]Dr. Tadeo Smyth AST [Catalytic activity/Vol] 14 U/L Critically low 15-37 [facility] Comment on above: Performed By: #### H STROPN, CMP, LIPA ####[facility] Vxfsegniji9052 [place] [address]Dr. Tadeo Smyth Bilirubin [Mass/Vol] 0.2 mg/dL Normal 0.2-1.0 [facility] Comment on above: Performed By: #### H STROPN, CMP, LIPA ####[facility] Mgtjuvyfep[address] [place], [place] [address]Dr. Tadeo Smyth Calcium [Mass/Vol] 9.4 mg/dL Normal 8.5-10.1 [facility] Comment on above: Performed By: #### H STROPN, CMP, LIPA ####[facility] Ivwfehkpfl[address] [place], [place] [address]Dr. Tadeo Smyth Chloride [Moles/Vol] 107 mmol/L Normal 98-107 [facility] Comment on above: Performed By: #### H STROPN, CMP, LIPA ####[facility] Wycguulimy[address] [place], [place] [address]Dr. Tadeo Smyth CO2 [Moles/Vol] 23.9 mmol/L Normal 21.0-32.0 [facility] Comment on above: Performed By: #### H STROPN, CMP, LIPA ####[facility] Zmncqpqmju[address] [place], [place] [address]Dr. Tadeo Smyth Creatinine [Mass/Vol] 0.91 mg/dL Normal 0.55-1.02 [facility] Comment on above: Performed By: #### H STROPN, CMP, LIPA ####[facility] Tfsxuuwprz[address] [place], [place] [address]Dr. Tadeo Smyth EGFR-AF ERITREAN >60 Normal >=60 [facility] Comment on above: Performed By: #### H STROPN, CMP, LIPA ####[facility] Pnvekkcykq3648 [place] [address]Dr. Tadeo Smyth EGFR-NON AF ERITREAN >60 Normal >=60 [facility] Comment on above: Performed By: #### H STROPN, CMP, LIPA ####[facility] Crvifjeuga0639 [place] [address]Dr. Tadeo Smyth Globulin (S) [Mass/Vol] 4.2 g/dL Normal [facility] Comment on above: Performed By: #### H STROPN, CMP, LIPA ####[facility] Zekctkyqoo0933 [place] [address]Dr. Tadeo Smyth Glucose [Mass/Vol] 101 mg/dL Normal 74-106 [facility] Comment on above: Performed By: #### H STROPN, CMP, LIPA ####[facility] Rbqluvomvt8745 [place] [address]Dr. Tadeo Smyth Potassium [Moles/Vol] 3.3 mmol/L Critically low 3.5-5.1 [facility] Comment on above: Performed By: #### H STROPN, CMP, LIPA ####[facility] Roqejgpnti9002 [place] [address]Dr. Tadeo Smyth Protein [Mass/Vol] 7.7 g/dL Normal 6.4-8.2 [facility] Comment on above: Performed By: #### H STROPN, CMP, LIPA ####[facility] Ksikpvscka027[address] [place] [address]Dr. Margotlan Smyth Sodium [Moles/Vol] 142 mmol/L Normal 136-145 [facility] Comment on above: Performed By: #### H STROPN, CMP, LIPA ####[facility] Xgnbkaangx5888 [place] [address]Dr. Tadeo Smyth Urea nitrogen [Mass/Vol] 17.0 mg/dL Normal 7.0-18.0 [facility] Comment on above: Performed By: #### H STROYAZMIN, CMP, LIPA ####[facility] Lafwufbhjj0481 [place] [address]Dr. Tadeo Smyth Urea nitrogen/Creatinine [Mass ratio] 18.7 mg/mg Normal [facility] Comment on above: Performed By: #### H STROYAZMIN, CMP, LIPA ####[facility] Yoxgzywsok7642 [place] [address]Dr. Tadeo Smyth TROPONIN, HIGH SENSITIVITYon 09-14-2022 HSTROP 46.6 pg/mL Normal 4.0-51.3 [facility] Comment on above: Result Comment: CUT- OFF POINTS HAVE BEEN ESTABLISHED BASED ON THE FOURTH UNIVERSAL DEFINITIONS OF MYOCARDIALINFARCTION. THE UPPER REFERENCE LIMIT (URL) OF TROPONIN, DEFINED THE 99TH PERCENTILE OFcTnI DISTRIBUTION IN A REFERENCE POPULATION, HAS BEEN CONFIRMED THE DECISION THRESHOLDFOR ND DIAGNOSIS. Performed By: #### H DIANN FIGUEROA, LIPA ####[facility] Ixojqmgryh69[address] [place] [address]Dr. Tadeo Smyth URINE MICROSCOPIC ONLYon BACTERIA NONE SEEN Normal NONE SEEN [facility] Comment on above: Performed By: #### Matthew FRANCISCO UMCHINEDURO ####[facility] Dfiofxohuv[address] [place], [place] [address]Dr. Tadeo Smyth Bacteria identified Cx Nom (U) NOT INDICATED Normal [facility] Comment on above: Performed By: #### Matthew FRANCISCO UMICRO ####[facility] Jenorjkgwc9792 [place] [address]Dr. Tadeo Smyth CAST NONE SEEN Normal NONE SEEN [facility] Comment on above: Performed By: #### Matthew FRANCISCO UMICRO ####[facility] Zviyqnpkky0269 [place] [address]Dr. Tadeo Smyth Crystals LM Nom (Urine sed) NONE SEEN Normal NONE SEEN [facility] Comment on above: Performed By: #### Matthew FRANCISCO UMICRO ####[facility] Bocbhqtwpe1860 [place] [address]Dr. Tadeo Smyth Epithelial cells LM Ql (Urine sed) FEW Abnormal NONE SEEN /RARE [facility] Comment on above: Performed By: #### E SARAH BETHR UMICRO ####[facility] V[address]kjbyatw[address] [place], [place] [address]Dr. Tadeo Smyth MUCOUS MODERATE Abnormal NONE SEEN [facility] Comment on above: Performed By: #### E NOLAN, UMICRO ####[facility] Xfdljpdntu4268 [place], [place] [address]Un. Margotnicole Smyth RBC 0-2 Normal 0-2 [facility] Comment on above: Performed By: #### E NOLAN, UMICRO ####[facility] Mocfpctftn5801 [place], [place] [address]Ys. Margotnicole Smyth WBC NONE SEEN Normal NONE SEEN [facility] Comment on above: Performed By: #### E NOLAN UMICRO ####[facility] Zloaezumjh8268 [place] [phone]. Tadeo Smyth XR ABD FLAT UP_PA Kasey 09-14 XR ABD FLAT UP_PA CH Normal [facility] VC COMP CONSULTATIONon 09-06 VC COMP CONSULTATION Normal [facility] VC VENOUS REFLUX MACARIO LMTon 0 09-06-2022 VC VENOUS REFLUX MACARIO LMT Normal [facility] XR KUB 1 VIEWon 08-18-2022 XR KUB 1 VIEW Normal [facility] US RUBENS DOP LEG RTon 08-11-20 US RUBENS DOP LEG RT Normal [facility] Provider Letteron 08-10-2022 Provider Letter (Inserted Image. Kristin ble to display) August 10, 2022 CONSTANTINO CARDOSO [address] [place] [address] CONSTANTINO CARDOSO 1970 Dear Constantino, We have been trying to reach you with no success. It is important that you return our call regarding your referral. Thank you for your prompt attention to this matter. Sincerely, [facility] Normal [facility] AMYLASEon 08-08-2022 Amylase [Catalytic activity/Vol] 64 U/L Normal 25-115 [facility] Comment on above: Performed By: #### C MP, VIJI, LIPA, CMADM ####[facility] Yszdqdzzei0201 [place] [phone]. Tadeo Haja CARDIAC NORA ADMITon 022 CK [Catalytic activity/Vol] 127 U/L Normal 26-192 [facility] Comment on above: Performed By: #### C MP, VIJI, LIPA, CMADM ####[facility] Hpexhcwxtu3204 [place] [address]Dr. Tadeo Haja CK.MB [Mass/Vol] 1.71 ng/mL Normal <=3.60 [facility] Comment on above: Performed By: #### C MP, VIJI, LIPA, CMADM ####[facility] Cgoswcuume9998 [place] [address]Dr. Tadeo Haja HSTROP 36.7 pg/mL Normal 4.0-51.3 [facility] Comment on above: Result Comment: CUT- OFF POINTS HAVE BEEN ESTABLISHED BASED ON THE FOURTH UNIVERSAL DEFINITIONS OF MYOCARDIALINFARCTION. THE UPPER REFERENCE LIMIT (URL) OF TROPONIN, DEFINED THE 99TH PERCENTILE OFcTnI DISTRIBUTION IN A REFERENCE POPULATION, HAS BEEN CONFIRMED THE DECISION THRESHOLDFOR ND DIAGNOSIS. Performed By: #### C MP, VIJI, LIPA, CMADM ####[facility] Eectmuajfl8059 [place] [address]Dr. Margotnicole Smyth AAKASH 23 ng/mL Normal 9-82 [facility] Comment on above: Performed By: #### C MP, VIJI, LIPA, CMADM ####[facility] Tumcyymtuk8277 [place] [address]Dr. Margotnicole Smyth CBC AUTO DIFFon 08-08-2022 BASO # 0.0 103/ul Normal 0.0-0.1 [facility] Comment on above: Performed By: #### C BC ####[facility] Dgzckebvtp9002 [place] [address]Dr. Tadeo Smyth Basophils/100 WBC (Bld) 0.4 % Normal 0.2-2.0 [facility] Comment on above: Performed By: #### C BC ####[facility] Hmignqimke8014 [place] [address]Dr. Tadeo Smyth EO # 0.1 103/ul Normal 0.0-0.7 [facility] Comment on above: Performed By: #### C BC ####[facility] Uukjqifvkq0166 [place] [phone]. Tadeo Smyth Eosinophils/100 WBC (Bld) 1.5 % Normal 0.9-7.0 [facility] Comment on above: Performed By: #### C BC ####[facility] Ickackzlqx[address] [place], [place] [address]Dr. Tadeo Smyth Erythrocyte distribution width (RBC) [Ratio] 13.5 % Normal 11.0-15.0 [facility] Comment on above: Performed By: #### C BC ####[facility] Tvsgioyujx86[address] [place], [place] [address]Dr. Tadeo Smyth Hematocrit (Bld) [Volume fraction] 37.0 % Normal 36.0-48.0 [facility] Comment on above: Performed By: #### C BC ####[facility] Xyqberjetx09[address] [place], [place] [address]Dr. Tadeo Smyth Hemoglobin (Bld) [Mass/Vol] 12.0 g/dL Normal 12.0-16.0 [facility] Comment on above: Performed By: #### C BC ####[facility] Maffdlomgo39[address] [place], [place] [address]Dr. Tadeo Smyth IG # 0.02 10e3/ul Normal 0.00-0.03 [facility] Comment on above: Performed By: #### C BC ####[facility] Fuqxtwslcb[address] [place], [place] [address]Dr. Tadeo Smyth IG % 0.3 % Normal 0.0-0.5 [facility] Comment on above: Performed By: #### C BC ####[facility] Bjntuhfwcy[address] [place], [place] [address]Dr. Tadeo Smyth LYMPH # 2.0 103/ul Normal 1.2-3.8 [facility] Comment on above: Performed By: #### C BC ####[facility] Qsgkxrrggt[address] [place], [place] [address]Dr. Tadeo Smyth Lymphocytes/100 WBC (Bld) 27.9 % Normal 20.5-60.0 [facility] Comment on above: Performed By: #### C BC ####[facility] Zvypsmkpif1291 [place] [address]Dr. Tadeo Smyth MANUAL DIFF REQ NO Normal [facility] Comment on above: Performed By: #### C BC ####[facility] Caputrptox1915 [place] [phone]. Tadeo Smyth MCH (RBC) [Entitic mass] 28.9 pg Normal 26.7-34.0 [facility] Comment on above: Performed By: #### C BC ####[facility] Zvwtjlvbll1778 [place] [address]Dr. Tadeo Smyth MCHC (RBC) [Mass/Vol] 32.4 g/dL Normal 29.9-35.2 [facility] Comment on above: Performed By: #### C BC ####[facility] Z[address]zspmmmql[address] [place], [place] [address]Dr. Tadeo Smyth MCV (RBC) [Entitic vol] 89.2 fL Normal 81.0-99.0 [facility] Comment on above: Performed By: #### C BC ####[facility] Kickwnqaqx[address] [place], [place] [address]Dr. Tadeo Smyth MONO # 0.5 103/ul Normal 0.3-0.8 [facility] Comment on above: Performed By: #### C BC ####[facility] [address]txvnjpb[address] [place], [place] [address]Dr. Tadeo Smyth Monocytes/100 WBC (Bld) 6.7 % Normal 1.7-12.0 [facility] Comment on above: Performed By: #### C BC ####[facility] Favbgpklwq[address] [place], [place] [address]DrNeo Smyth NEUT # 4.5 103/ul Normal 1.4-6.5 [facility] Comment on above: Performed By: #### C BC ####[facility] Fjbedkzuqb[address] [place], [place] [address]Dr. Tadeo Smyht Neutrophils/100 WBC (Bld) 63.2 % Normal 43.0-75.0 [facility] Comment on above: Performed By: #### C BC ####[facility] Xzhbnvcdbx[address] [place] [address]Dr. Tadeo Smyth Platelet mean volume (Bld) [Entitic vol] 9.0 fL Critically low 9.5-13.5 [facility] Comment on above: Performed By: #### C BC ####[facility] Dgbmyssvej[address] [place] [address]Dr. Tadeo Smyth PLT 382 103/ul Normal 150-450 [facility] Comment on above: Performed By: #### C BC ####[facility] Ewfdyasdat[address] [place] [address]Dr. Tadeo Smyth RBC 4.15 106/ul Critically low 4.20-5.40 [facility] Comment on above: Performed By: #### C BC ####[facility] Syuooxhpoh45[address] [place] [address]Dr. Tadeo Smyth WBC 7.1 103/ul Normal 4.0-11.0 [facility] Comment on above: Performed By: #### C BC ####[facility] Qhwarmyyzh224[address] [place], [place] [address]Dr. Tadeo Smyth CT ABD/PELV W CONon 08-08-[address] ABD/PELV W CON Normal [facility] ER URINE PROFILEon 2 Bilirubin Ql (U) Negative Normal NEGATIVE [facility] Comment on above: Performed By: #### KAROL MERCHANT ####[facility] Amsdswkywf[address] [place], [place] [address]Dr. Tadeo Smyth Clarity (U) CLEAR Normal CLEAR [facility] Comment on above: Performed By: #### SANDRO MERCHANTRO ####[facility] Mrvmhdsssi6376 [place] [address]DrNeo Smyth Color (U) YELLOW Normal YELLOW [facility] Comment on above: Performed By: #### SANDRO MERCHANTRO ####[facility] Fnipsnklpz[address] [place], [place] [address]DrNeo Smyth ERUAHD A micrscopic examina tion will be performed if indicated. Normal [facility] Comment on above: Performed By: #### Matthew FRANCISCO UMICRO ####[facility] Egdyetwnkb7[address] [place] [address]Dr. Tadeo Smyth Glucose Ql (U) Negative Normal NEGATIVE [facility] Comment on above: Performed By: #### Matthew FRANCISCO UMICRO ####[facility] Xgypcsjwsb[address] [place], [place] [address]Dr. Tadeo Smyth Hemoglobin Ql (U) TRACE-LYSED Abnormal NEGATIVE [facility] Comment on above: Performed By: #### Matthew FRANCISCO UMICRO ####[facility] Ohvidpsjtn[address] [place], [place] [address]Dr. Margotnicole Smyth Ketones Ql (U) TRACE Abnormal NEGATIVE [facility] Comment on above: Performed By: #### Matthew FRANCISCO UMICRO ####[facility] Cuapbtxvcl[address] [place], [place] [address]Dr. Margotnicole Smyth LEUKOCYTES Negative Normal NEGATIVE [facility] Comment on above: Performed By: #### Matthew FRANCISCO UMICRO ####[facility] Crvvflwrvt[address] [place], [place] [address]Dr. Tadeo Smyth Nitrite Ql (U) Negative Normal NEGATIVE [facility] Comment on above: Performed By: #### Matthew FRANCISCO UMICRO ####[facility] Vueaxiaira7[address] [place], [place] [address]Dr. Margotnicole Smyth pH (U) 6.0 [pH] Normal 5-9 [facility] Comment on above: Performed By: #### Matthew FRANCISCO UMICRO ####[facility] Cevzpedejj8[address] [place], [place] [address]Dr. Margotnicole Smyth SPEC GRAVITY >=1.030 Abnormal 1.005-<=1.0 25 [facility] Comment on above: Performed By: #### Matthew FRANCISCO UMICRO ####[facility] Nmbcdjtqts[address] [place], [place] [address]Dr. Margotnicole Smyth UA PROTEIN TRACE Normal NEGATIVE/ TRACE [facility] Comment on above: Performed By: #### Matthew FRANCISCO UMICRO ####[facility] Hwohwaihcz[address] [place] [address]Dr. Tadeo Smyth UR MICRO IND INDICATED Normal [facility] Comment on above: Performed By: #### SANDRO MERCHANTRO ####[facility] Bcejtecmhh27[address] [place] [address]Dr. Margotnicole Smyth Urobilinogen Qn (U) 0.2 {Benito'U}/dL Normal 0.2 - 1. 0 [facility] Comment on above: Performed By: #### Matthew FRANCISCO, ICRO ####[facility] Wfzldpxtng25[address] [place] [address]Dr. Tadeo Smyth LACTATE/LACTIC ACIDon 2021 Lactate [Moles/Vol] 1.3 mmol/L Normal 0.4-1.9 [facility] Comment on above: Performed By: #### L ACT ####[facility] Wgkkpeejjc[address] [place], [place] [address]Dr. Tadeo Smyth LIPASEon 08-08-2022 Lipase [Catalytic activity/Vol] 120.0 U/L Normal 73.0-393.0 [facility] Comment on above: Performed By: #### C MP, VIJI, LIPA, CMADM ####[facility] Szqtmhfbvr7[address] [place] [address]Dr. Tadeo Smyth PROF 14(COMP METB)on 022 Albumin [Mass/Vol] 3.8 g/dL Normal 3.4-5.0 [facility] Comment on above: Performed By: #### C MP, VIJI, LIPA, CMADM ####[facility] Nlrmsuibje12[address] [place] [address]Dr. Tadeo Smyth Albumin/Globulin [Mass ratio] 1.1 {ratio} Normal [facility] Comment on above: Performed By: #### C MP, VIJI, LIPA, CMADM ####[facility] Qqgmhmgzzw[address] [place] [address]Dr. Tadeo Smyth ALP [Catalytic activity/Vol] 145 U/L Critically high 46-116 [facility] Comment on above: Performed By: #### C MP, VIJI, LIPA, CMADM ####[facility] Qkfdjulslv2316 [place] [address]Dr. Tadeo Smyth ALT [Catalytic activity/Vol] 30 U/L Normal 14-59 [facility] Comment on above: Performed By: #### C MP, VIJI, LIPA, CMADM ####[facility] Xfielztrbb[address] [place] [address]Dr. Tadeo Smyth Anion gap [Moles/Vol] 11.5 mmol/L Normal Th [facility] Comment on above: Performed By: #### C MP, VIJI, LIPA, CMADM ####[facility] Ljbqclxudn89[address] [place] [address]Dr. Tadeo Smyth AST [Catalytic activity/Vol] 17 U/L Normal 15-37 [facility] Comment on above: Performed By: #### C MP, VIJI, LIPA, CMADM ####[facility] Azcdpmxjzn23[address] [place] [address]Dr. Tadeo Smyth Bilirubin [Mass/Vol] 0.1 mg/dL Critically low 0.2-1.0 [facility] Comment on above: Performed By: #### C MP, VIJI, LIPA, CMADM ####[facility] Cfqoecnwex[address] [place], [place] [address]Dr. Tadeo Smyth Calcium [Mass/Vol] 8.9 mg/dL Normal 8.5-10.1 [facility] Comment on above: Performed By: #### C MP, VIJI, LIPA, CMADM ####[facility] Pkuowfknhp7[address] [place] [address]Dr. Tadeo Smyth Chloride [Moles/Vol] 104 mmol/L Normal 98-107 [facility] Comment on above: Performed By: #### C MP, VIJI, LIPA, CMADM ####[facility] Khayuxwsjg7[address] [place], [place] [address]Dr. Tadeo Smyth CO2 [Moles/Vol] 27.2 mmol/L Normal 21.0-32.0 [facility] Comment on above: Performed By: #### C MP, VIJI, LIPA, CMADM ####[facility] Toqbxdipxq5[address] [place] [address]Dr. Tadeo Smyth Creatinine [Mass/Vol] 0.90 mg/dL Normal 0.55-1.02 [facility] Comment on above: Performed By: #### C MP, VIJI, LIPA, CMADM ####[facility] Sttfxkqnmq[address] [place] [address]Dr. Tadeo Smyth EGFR-AF ERITREAN >60 Normal >=60 [facility] Comment on above: Performed By: #### C MP, VIJI, LIPA, CMADM ####[facility] Bdbwuyvsnl9[address] [place] [address]Dr. Tadeo Smyth EGFR-NON AF ERITREAN >60 Normal >=60 [facility] Comment on above: Performed By: #### C MP, VIJI, LIPA, CMADM ####[facility] Sfoglqkkik8824 [place] [address]Dr. aTdeo Smyth Globulin (S) [Mass/Vol] 3.5 g/dL Normal [facility] Comment on above: Performed By: #### C MP, VIJI, LIPA, CMADM ####[facility] Wqpkvnovuu[address] [place], [place] [address]Dr. Tadeo Smyth Glucose [Mass/Vol] 98 mg/dL Normal 74-106 [facility] Comment on above: Performed By: #### C MP, VIJI, LIPA, CMADM ####[facility] Dhxvrezeyd79[address] [place] [address]Dr. Tadeo Smyth Potassium [Moles/Vol] 3.7 mmol/L Normal 3.5-5.1 [facility] Comment on above: Performed By: #### C MP, VIJI, LIPA, CMADM ####[facility] Pljxlvdyrk17[address] [place] [address]Dr. Tadeo Smyth Protein [Mass/Vol] 7.3 g/dL Normal 6.4-8.2 [facility] Comment on above: Performed By: #### C MP, VIJI, LIPA, CMADM ####[facility] Vhbqhvmmoh1319 [place] [address]Dr. Tadeo Smyth Sodium [Moles/Vol] 139 mmol/L Normal 136-145 [facility] Comment on above: Performed By: #### C VIJI GARCIA LIPA, CMADM ####[facility] Wrxowisuyt37[address] [place] [address]Dr. Tadeo Smyth Urea nitrogen [Mass/Vol] 25.0 mg/dL Critically high 7.0-18.0 [facility] Comment on above: Performed By: #### C VIJI GARCIA LIPA, CMADM ####[facility] Yonzkcqkvu0[address] [place] [address]Dr. Tadeo Smyth Urea nitrogen/Creatinine [Mass ratio] 27.8 mg/mg Normal [facility] Comment on above: Performed By: #### C VIJI GARCIA LIPA, CMAMARGARITO ####[facility] Nzukxuyxfj0[address] [place] [address]Dr. Tadeo Smyth URINE MICROSCOPIC ONLYon BACTERIA NONE SEEN Normal NONE SEEN [facility] Comment on above: Performed By: #### SANDRO MERCHANTRO ####[facility] Oeudcsecqw[address] [place], [place] [address]Dr. Tadeo Smyth Bacteria identified Cx Nom (U) NOT INDICATED Normal [facility] Comment on above: Performed By: #### KAROL MERCHANT ####[facility] Tenwadszrw8[address] [place] [address]Dr. Tadeo Smyth CAST NONE SEEN Normal NONE SEEN [facility] Comment on above: Performed By: #### SANDRO MERCHANTRO ####[facility] Bccqzrbgrl93[address] [place] [address]Dr. Tadeo Smyth Crystals LM Nom (Urine sed) NONE SEEN Normal NONE SEEN [facility] Comment on above: Performed By: #### SANDRO MERCHANTRO ####[facility] Ldimdciwnm4[address] [place], [place] [address]Dr. Tadeo Smyth Epithelial cells LM Ql (Urine sed) FEW Abnormal NONE SEEN /RARE [facility] Comment on above: Performed By: #### SANDRO MERCHANTRO ####[facility] Vcjormztti[address] [place], [place] [address]Dr. Yinicole Smyth MUCOUS NONE SEEN Normal NONE SEEN [facility] Comment on above: Performed By: #### SANDRO MERCHANTRO ####[facility] Gdeefqcsvr2164 [place], [place] [address]Gr. Margotnicole Smyth RBC 2-5 Abnormal 0-2 [facility] Comment on above: Performed By: #### Matthew FRANCISCO UMICRO ####[facility] Pgzgghtqge0666 [place], [place] [address]Ol. Tadeo Smyth WBC NONE SEEN Normal NONE SEEN [facility] Comment on above: Performed By: #### SANDRO MERCHANTRO ####[facility] Vdivvavxqb7190 [place], [place] [address]Mq. Tadeo Smyth Gastroenterology Office/Clin ic Noteon 07-24-2022 [...] to record this visit. JOSE FRANCISCO digital media specialist and provider reviewed before signing. [...] 10 mg= (more content not included)... Normal [facility] Comment on above: Result Comment: Elec tronically Signed By: Agata Nunes\.br\Date and Time Signed: 07/22/22 16:25 EST\.br\Electronically Co-Signed By: Anai REAGAN MD\.br\Date and Time Co-Signed: 07/24/22 15:06 EST AMYLASEon 07-21-2022 Amylase [Catalytic activity/Vol] 49 U/L Normal 25-115 [facility] Comment on above: Performed By: #### L IPA, VIJI, CMP ####[facility] Umvejfxary[address] [place] [address]Dr. Tadeo Haja CBC AUTO DIFFon 07-21-2022 BASO # 0.0 103/ul Normal 0.0-0.1 [facility] Comment on above: Performed By: #### C BC ####[facility] Stckultkxv7435 [place] [address]Dr. Tadeo Smyth Basophils/100 WBC (Bld) 0.6 % Normal 0.2-2.0 [facility] Comment on above: Performed By: #### C BC ####[facility] Watihmdqzn4[address] [place], [place] [address]Dr. Tadeo Smyth EO # 0.2 103/ul Normal 0.0-0.7 [facility] Comment on above: Performed By: #### C BC ####[facility] Wdzhyobkud20[address] [place], [place] [address]Dr. Tadeo Smyth Eosinophils/100 WBC (Bld) 3.1 % Normal 0.9-7.0 [facility] Comment on above: Performed By: #### C BC ####[facility] Eidvaxxyyj5[address] [place], [place] [address]Dr. Tadeo Smyth Erythrocyte distribution width (RBC) [Ratio] 13.2 % Normal 11.0-15.0 [facility] Comment on above: Performed By: #### C BC ####[facility] Ujhndjlmba338[address] [place], [place] [address]Dr. Tadeo Smyth Hematocrit (Bld) [Volume fraction] 35.7 % Critically low 36.0-48.0 [facility] Comment on above: Performed By: #### C BC ####[facility] Rdkccjwqtn24[address] [place], [place] [address]Dr. Tadeo Smyth Hemoglobin (Bld) [Mass/Vol] 11.6 g/dL Critically low 12.0-16.0 [facility] Comment on above: Performed By: #### C BC ####[facility] Ncwnmntubz[address] [place], [place] [address]Dr. Tadeo Smyth IG # 0.01 10e3/ul Normal 0.00-0.03 [facility] Comment on above: Performed By: #### C BC ####[facility] Vijthqofko7720 [place] [address]Dr. Tadeo Smyth IG % 0.2 % Normal 0.0-0.5 [facility] Comment on above: Performed By: #### C BC ####[facility] Gxcfobkknf[address] [place], [place] [address]Dr. Tadeo Smyth LYMPH # 1.9 103/ul Normal 1.2-3.8 [facility] Comment on above: Performed By: #### C BC ####[facility] Maxzgktrii5564[address] [place], [place] [address]DrNeo Tadeo Smyth Lymphocytes/100 WBC (Bld) 34.8 % Normal 20.5-60.0 [facility] Comment on above: Performed By: #### C BC ####[facility] Kkayokxavh[address] [place], [place] [address]Dr. Tadeo Smyth MANUAL DIFF REQ NO Normal [facility] Comment on above: Performed By: #### C BC ####[facility] Qnpfwqifsq34[address] [place], [place] [address]Dr. Tadeo Smyth MCH (RBC) [Entitic mass] 29.1 pg Normal 26.7-34.0 [facility] Comment on above: Performed By: #### C BC ####[facility] Fgatmbaxpo18[address] [place], [place] [address]Dr. Tadeo Smyth MCHC (RBC) [Mass/Vol] 32.5 g/dL Normal 29.9-35.2 [facility] Comment on above: Performed By: #### C BC ####[facility] Lsbziruoti[address] [place], [place] [address]DrNeo Tadeo Smyth MCV (RBC) [Entitic vol] 89.7 fL Normal 81.0-99.0 [facility] Comment on above: Performed By: #### C BC ####[facility] Qiloetxcyy249[address] [place], [place] [address]DrNeo Tadeo Haja MONO # 0.3 103/ul Normal 0.3-0.8 [facility] Comment on above: Performed By: #### C BC ####[facility] Bimyshghhl[address] [place] [address]Dr. Tadeo Smyth Monocytes/100 WBC (Bld) 6.1 % Normal 1.7-12.0 [facility] Comment on above: Performed By: #### C BC ####[facility] Fzzjllyonm8409 [place] [address]Dr. Tadeo Smyth NEUT # 3.0 103/ul Normal 1.4-6.5 [facility] Comment on above: Performed By: #### C BC ####[facility] Occmmeyauf4928 [place] [address]Dr. Tadeo Smyth Neutrophils/100 WBC (Bld) 55.2 % Normal 43.0-75.0 [facility] Comment on above: Performed By: #### C BC ####[facility] Qhdktpxrzt3576 [place] [address]Dr. Tadeo Smyth Platelet mean volume (Bld) [Entitic vol] 9.0 fL Critically low 9.5-13.5 [facility] Comment on above: Performed By: #### C BC ####[facility] Asswhwsyiy57[address] [place] [address]Dr. Tadeo Smyth PLT 358 103/ul Normal 150-450 [facility] Comment on above: Performed By: #### C BC ####[facility] Mpagozfkop5421 [place] [address]Dr. Tadeo Smyth RBC 3.98 106/ul Critically low 4.20-5.40 [facility] Comment on above: Performed By: #### C BC ####[facility] Aosffrmfzk5092 [place] [address]Dr. Tadeo Smyth WBC 5.4 103/ul Normal 4.0-11.0 [facility] Comment on above: Performed By: #### C BC ####[facility] Mddawzmyzc0355 [place] [address]Dr. Tadeo Smyth LIPASEon 07-21-2022 Lipase [Catalytic activity/Vol] 54.0 U/L Critically low 73.0-393.0 [facility] Comment on above: Performed By: #### L IVJI HALL, CMP ####[facility] Zrbpbtokvo6297 [place] [address]Dr. Tadeo Smyth PROF 14(COMP METB)on 022 Albumin [Mass/Vol] 3.5 g/dL Normal 3.4-5.0 [facility] Comment on above: Performed By: #### L VIJI HALL, CMP ####[facility] Ffejxkgjkw8293 [place] [address]Dr. Tadeo Smyth Albumin/Globulin [Mass ratio] 0.9 {ratio} Normal [facility] Comment on above: Performed By: #### L VIJI HALL, CMP ####[facility] Kpbsoubgzm1725 [place] [address]Dr. Tadeo Smyth ALP [Catalytic activity/Vol] 127 U/L Critically high 46-116 [facility] Comment on above: Performed By: #### L VIJI HALL, CMP ####[facility] Hykiqjwubb[address] [place], [place] [address]Dr. Tadeo Smyth ALT [Catalytic activity/Vol] 16 U/L Normal 14-59 [facility] Comment on above: Performed By: #### L VIJI HALL, CMP ####[facility] Ufppeevuma[address] [place], [place] [address]Dr. Tadeo Smyth Anion gap [Moles/Vol] 10.6 mmol/L Normal [facility] Comment on above: Performed By: #### L VIJI HALL, CMP ####[facility] Nystbybfsk8364 [place] [address]Dr. Tadeo Smyth AST [Catalytic activity/Vol] 16 U/L Normal 15-37 [facility] Comment on above: Performed By: #### L VIJI HALL, CMP ####[facility] Ijftfzqxte[address] [place], [place] [address]Dr. Tadeo Smyth Bilirubin [Mass/Vol] 0.3 mg/dL Normal 0.2-1.0 [facility] Comment on above: Performed By: #### L VIJI HALL, CMP ####[facility] Krjtpqnhes1163 [place] [address]Dr. Tadeo Smyth Calcium [Mass/Vol] 9.1 mg/dL Normal 8.5-10.1 [facility] Comment on above: Performed By: #### L VIJI HALL, CMP ####[facility] Xipdmohdfo4213 [place] [address]Dr. Tadeo Smyth Chloride [Moles/Vol] 104 mmol/L Normal 98-107 [facility] Comment on above: Performed By: #### L VIJI HALL, CMP ####[facility] Equeeqozfk0385 [place] [address]Dr. Tadeo Smyth CO2 [Moles/Vol] 28.0 mmol/L Normal 21.0-32.0 [facility] Comment on above: Performed By: #### L VIJI HALL, CMP ####[facility] L[address]vjfbtbwe[address] [place], [place] [address]Dr. Tadeo Smyth Creatinine [Mass/Vol] 0.96 mg/dL Normal 0.55-1.02 [facility] Comment on above: Performed By: #### L VIJI HALL, CMP ####[facility] Xjtewhaahs[address] [place], [place] [address]Dr. Tadeo Smyth EGFR-AF ERITREAN >60 Normal >=60 [facility] Comment on above: Performed By: #### L VIJI HALL, CMP ####[facility] Yozjoutfhq187[address] [place], [place] [address]Dr. Tadeo Smyth EGFR-NON AF ERITREAN >60 Normal >=60 [facility] Comment on above: Performed By: #### L VIJI HALL, CMP ####[facility] Umywgkaioc020[address] [place], [place] [address]Dr. Tadeo Smyth Globulin (S) [Mass/Vol] 3.8 g/dL Normal [facility] Comment on above: Performed By: #### L VIJI HALL, CMP ####[facility] Xalusrntcy84[address] [place], [place] [address]Dr. Tadeo mSyth Glucose [Mass/Vol] 93 mg/dL Normal 74-106 [facility] Comment on above: Performed By: #### L VIJI HALL, CMP ####[facility] Cbgcdqpovv6455 [place] [address]Dr. Tadeo Smyth Potassium [Moles/Vol] 3.6 mmol/L Normal 3.5-5.1 [facility] Comment on above: Performed By: #### L VIJI HALL, CMP ####[facility] Oazlcatrkz2205 [place] [address]Dr. Tadeo Smyth Protein [Mass/Vol] 7.3 g/dL Normal 6.4-8.2 [facility] Comment on above: Performed By: #### L VIJI HALL, CMP ####[facility] Qawbudkfyb355[address] [place], [place] [address]Dr. Tadeo Smyth Sodium [Moles/Vol] 139 mmol/L Normal 136-145 [facility] Comment on above: Performed By: #### L VIJI HALL, CMP ####[facility] Llnygelmpl5[address] [place], [place] [address]Dr. Tadeo Smyth Urea nitrogen [Mass/Vol] 16.0 mg/dL Normal 7.0-18.0 [facility] Comment on above: Performed By: #### L VIJI HALL, CMP ####[facility] Dwtstjkhkt[address] [place], [place] [address]Dr. Tadeo Smyth Urea nitrogen/Creatinine [Mass ratio] 16.7 mg/mg Normal [facility] Comment on above: Performed By: #### L VIJI HALL, CMP ####[facility] Jgbjrbuldr[address] [place], [place] [address]Dr. Tadeo Smyth XR ABD FLAT UP_PA Kasey 07-21 XR ABD FLAT UP_PA CH Normal [facility] CULTURE URINEon 07-10-2022 CULTURE URINE Normal [facility] Comment on above: Performed By: #### U RCX ####[facility] Zhddyzdtyf18[address] [place], [place] [address]Dr. Tadeo Haja INSULINon 07-09-2022 Insulin 15.9 uIU/mL Normal 2.6-24.9 [facility] Comment on above: Performed By: #### I NSULIN ####[facility] Egwxygoysb2341 [place] [id number]. Tadeo Smyth CBC AUTO DIFFon 07-08-2022 BASO # 0.0 103/ul Normal 0.0-0.1 [facility] Comment on above: Performed By: #### C BC ####[facility] Mzrjhuhjoi[address] [place], [place] [address]Dr. Margotnicole Smyth Basophils/100 WBC (Bld) 0.6 % Normal 0.2-2.0 [facility] Comment on above: Performed By: #### C BC ####[facility] Oylxbsxlxx[address] [place], [place] [address]Dr. Margotnicole Smyth EO # 0.2 103/ul Normal 0.0-0.7 [facility] Comment on above: Performed By: #### C BC ####[facility] Qsjztppdsi[address] [place], [place] [address]Dr. Tadeo Smyth Eosinophils/100 WBC (Bld) 3.4 % Normal 0.9-7.0 [facility] Comment on above: Performed By: #### C BC ####[facility] Diqwwialky[address] [place], [place] [address]Dr. Margotnicole Smyth Erythrocyte distribution width (RBC) [Ratio] 13.1 % Normal 11.0-15.0 [facility] Comment on above: Performed By: #### C BC ####[facility] Nummyxiqjf[address] [place], [place] [address]Dr. Margotnicole Smyth Hematocrit (Bld) [Volume fraction] 42.4 % Normal 36.0-48.0 [facility] Comment on above: Performed By: #### C BC ####[facility] Jiuiimbtoo[address] [place], [place] [address]Dr. Margotnicole Smyth Hemoglobin (Bld) [Mass/Vol] 13.7 g/dL Normal 12.0-16.0 [facility] Comment on above: Performed By: #### C BC ####[facility] Dfgowikeyu[address] [place], [place] [address]Dr. Tadeo Smyth IG # 0.01 10e3/ul Normal 0.00-0.03 [facility] Comment on above: Performed By: #### C BC ####[facility] Gcsqqqcrlj5008 [place] [address]Dr. Tadeo Smyth IG % 0.2 % Normal 0.0-0.5 [facility] Comment on above: Performed By: #### C BC ####[facility] Prkvldydof7211 [place] [address]Dr. Tadeo Smyth LYMPH # 2.1 103/ul Normal 1.2-3.8 [facility] Comment on above: Performed By: #### C BC ####[facility] Bofkwikowg9745 [place] [address]Dr. Tadeo Smyth Lymphocytes/100 WBC (Bld) 41.2 % Normal 20.5-60.0 [facility] Comment on above: Performed By: #### C BC ####[facility] Lfwxmzgmew[address] [place], [place] [address]Dr. Tadeo Smyth MANUAL DIFF REQ NO Normal [facility] Comment on above: Performed By: #### C BC ####[facility] Mvconpwdlj[address] [place], [place] [address]Dr. Tadeo Smyth MCH (RBC) [Entitic mass] 28.8 pg Normal 26.7-34.0 [facility] Comment on above: Performed By: #### C BC ####[facility] Hhejawbakb[address] [place], [place] [id number]. Tadeo Smyth MCHC (RBC) [Mass/Vol] 32.3 g/dL Normal 29.9-35.2 [facility] Comment on above: Performed By: #### C BC ####[facility] Evigvitfvi[address] [place], [place] [id number]. Tadeo Smyth MCV (RBC) [Entitic vol] 89.3 fL Normal 81.0-99.0 [facility] Comment on above: Performed By: #### C BC ####[facility] [address] [place] [phone]. Tadeo Haja MONO # 0.4 103/ul Normal 0.3-0.8 [facility] Comment on above: Performed By: #### C BC ####[facility] Mfcopmlyzz4[address] [place] [phone]. Tadeo Smyth Monocytes/100 WBC (Bld) 8.1 % Normal 1.7-12.0 [facility] Comment on above: Performed By: #### C BC ####[facility] Lnruacaejd[address] [place] [phone]. Tadeo Smyth NEUT # 2.4 103/ul Normal 1.4-6.5 [facility] Comment on above: Performed By: #### C BC ####[facility] Xnndveksxj2226 [place] [phone]. Tadeo Smyth Neutrophils/100 WBC (Bld) 46.5 % Normal 43.0-75.0 [facility] Comment on above: Performed By: #### C BC ####[facility] Woiqhimbnc26[address] [place] [phone]. Tadeo Smyth Platelet mean volume (Bld) [Entitic vol] 9.3 fL Critically low 9.5-13.5 [facility] Comment on above: Performed By: #### C BC ####[facility] Qxlkipjulm0492 [place] [phone]. Tadeo Smyth PLT 443 103/ul Normal 150-450 [facility] Comment on above: Performed By: #### C BC ####[facility] Okekbdxxdk70[address] [place] [phone]. Tadeo Smyth RBC 4.75 106/ul Normal 4.20-5.40 [facility] Comment on above: Performed By: #### C BC ####[facility] Igroiyywix[address] [place], [place] [address]Dr. Tadeo Smyth WBC 5.1 103/ul Normal 4.0-11.0 [facility] Comment on above: Performed By: #### C BC ####[facility] Brjpaklzwe[address] [place], [place] [address]Dr. Tadeo Smyth FREE THYROXINE INDEX T7on 1 09-07-2021 FTI 2.91 Normal 1.30-4.50 [facility] Comment on above: Performed By: #### T 7, LIPID, TSH, CMP ####[facility] Edqvwowjxi[address] [place] [phone]. Tadeo Smyth T3U 31.0 % Normal 30.0-39.0 [facility] Comment on above: Performed By: #### T 7, LIPID, TSH, CMP ####[facility] Tswcifzpsf[address] [place] [address]Dr. Tadeo Smyth T4 [Mass/Vol] 9.40 ug/dL Normal 4.80-13.90 [facility] Comment on above: Performed By: #### T 7, LIPID, TSH, CMP ####[facility] Ok[address]jqad[address] [place] [address]Dr. Tadeo Smyth GLYCOHEMOGLOBIN A1Con 2021 ADA RECOMMENDATION SEE BELOW Normal [facility] Comment on above: Result Comment: ADA RECOMMENDED LIMIT 4.0 - 6.0 ADA THERAPEUTIC TARGET < 7.0 ACTION SUGGESTED > 7.0 Performed By: #### A 1C ####[facility] Sgnkvyayoe[address] [place], [place] [address]Dr. Tadeo Smyth Glucose [Mass/Vol] 120 mg/dL Normal [facility] Comment on above: Performed By: #### A 1C ####[facility] Vnvmglogct[address] [place], [place] [address]Dr. Tadeo Smyth HbA1c (Bld) [Mass fraction] 5.8 % Normal 4.5-6.2 [facility] Comment on above: Performed By: #### A 1C ####[facility] Kctftwkmuq[address] [place], [place] [address]Dr. Tadeo Smyth IRONon 07-08-2022 Iron [Mass/Vol] 59.0 ug/dL Normal 50.0-170.0 [facility] Comment on above: Performed By: #### I KEEGAN ####[facility] Jsaaxnvjke[address] [place], [place] [address]Dr. Tadeo Smyth LIPID PROFILEon 07-08-2022 CHOL-HDL RATIO NORM SEE BELOW Normal [facility] Comment on above: Result Comment: 3.3 - 4.4 LOW RISK 4.4 - 7.1 AVERAGE RISK 7.1 - 11.0 MODERATE RISK >11.0 HIGH RISK Performed By: #### T 7, LIPID, TSH, CMP ####[facility] Elbpjpqzrs65[address] [place] [phone]. Tadeo Smyth Cholesterol [Mass/Vol] 227 mg/dL Critically high <=200 [facility] Comment on above: Performed By: #### T 7, LIPID, TSH, CMP ####[facility] Zkzfmduvtc7655 [place] [phone]. Tadeo Smyth Cholesterol in HDL [Mass/Vol] 67 mg/dL Critically high 40-60 [facility] Comment on above: Performed By: #### T 7, LIPID, TSH, CMP ####[facility] Vkrlennpin[address] [place] [address]Dr. Tadeo Smyth Cholesterol in LDL [Mass/Vol] 139.0 mg/dL Normal [facility] Comment on above: Performed By: #### T 7, LIPID, TSH, CMP ####[facility] Mccjtjhpsr[address] [place], [place] [address]Dr. Tadeo Smyth Cholesterol.total/Cho lesterol in HDL [Mass ratio] 3.4 {ratio} Normal [facility] Comment on above: Performed By: #### T 7, LIPID, TSH, CMP ####[facility] Wyniughhka[address] [place] [phone]. Tadeo Smyth HDL NORMAL > or = 60 mg/dl - LO W CARDIOVASCULAR RISK <40 mg/dl - HIGH CARDIOVASCULAR RISK Normal [facility] Comment on above: Performed By: #### T 7, LIPID, TSH, CMP ####[facility] Dhkiajwisb1654 [place] [phone]. Tadeo Smyth LDL CALC NORMAL SEE BELOW Normal [facility] Comment on above: Result Comment: <100 mg/dl OPTIMAL 100 - 129 mg/dl NEAR OR ABOVE OPTIMAL 130 - 159 mg/dl BORDERLINE HIGH 160 - 189 mg/dl HIGH >190 mg/dl VERY HIGH Performed By: #### T 7, LIPID, TSH, CMP ####[facility] Npejqoyqbd13[address] [place] [address]Dr. Tadeo Smyth Triglyceride [Mass/Vol] 105 mg/dL Normal <=150 [facility] Comment on above: Performed By: #### T 7, LIPID, TSH, CMP ####[facility] Ujxxztdvub47[address] [place] [address]Dr. Tadeo Smyth VLDL CALC 21.0 mg/dL Normal [facility] Comment on above: Performed By: #### T 7, LIPID, TSH, CMP ####[facility] Pgtwjptxsz7208 [place] [address]Dr. Tadeo Smyth OCC BLD IMMUNO SCREENon 11 OCCULT BLOOD Negative Normal NEGATIVE [facility] Comment on above: Performed By: #### O BSCRN ####[facility] Opraoogwoh35[address] [place] [address]Dr. Tadeo Smyth PROF 14(COMP METB)on 022 Albumin [Mass/Vol] 3.7 g/dL Normal 3.4-5.0 [facility] Comment on above: Performed By: #### T 7, LIPID, TSH, CMP ####[facility] Sueqjgxzaw7352 [place] [address]Dr. Tadeo Smyth Albumin/Globulin [Mass ratio] 0.8 {ratio} Normal [facility] Comment on above: Performed By: #### T 7, LIPID, TSH, CMP ####[facility] Qakbfzrrqw2478 [place] [address]Dr. Tadeo Smyth ALP [Catalytic activity/Vol] 141 U/L Critically high 46-116 [facility] Comment on above: Performed By: #### T 7, LIPID, TSH, CMP ####[facility] Kghjrciiec0993 [place] [address]Dr. Tadeo Smyth ALT [Catalytic activity/Vol] 23 U/L Normal 14-59 [facility] Comment on above: Performed By: #### T 7, LIPID, TSH, CMP ####[facility] Yjlhkmwtiu8506 [place] [address]Dr. Tadeo Smyth Anion gap [Moles/Vol] 9.8 mmol/L Normal [facility] Comment on above: Performed By: #### T 7, LIPID, TSH, CMP ####[facility] Kxpmnswqsf4259 [place] [address]Dr. Tadeo Smyth AST [Catalytic activity/Vol] 13 U/L Critically low 15-37 [facility] Comment on above: Performed By: #### T 7, LIPID, TSH, CMP ####[facility] Bkotlnaxcb[address] [place], [place] [address]Dr. Tadeo Smyth Bilirubin [Mass/Vol] 0.4 mg/dL Normal 0.2-1.0 [facility] Comment on above: Performed By: #### T 7, LIPID, TSH, CMP ####[facility] Ibppobcwyt[address] [place], [place] [address]Dr. Tadeo Smyth Calcium [Mass/Vol] 10.2 mg/dL Critically high 8.5-10.1 [facility] Comment on above: Performed By: #### T 7, LIPID, TSH, CMP ####[facility] Wpgqereyrh[address] [place], [place] [address]Dr. Tadeo Smyth Chloride [Moles/Vol] 101 mmol/L Normal 98-107 [facility] Comment on above: Performed By: #### T 7, LIPID, TSH, CMP ####[facility] Ctvpzxjozd[address] [place], [place] [address]Dr. Tadeo Smyth CO2 [Moles/Vol] 32.8 mmol/L Critically high 21.0-32.0 [facility] Comment on above: Performed By: #### T 7, LIPID, TSH, CMP ####[facility] Httgvzvmhc7[address] [place], [place] [address]Dr. Tadeo Smyth Creatinine [Mass/Vol] 0.92 mg/dL Normal 0.55-1.02 [facility] Comment on above: Performed By: #### T 7, LIPID, TSH, CMP ####[facility] Ixcuqgvogd13[address] [place], [place] [address]Dr. Tadeo Smyth EGFR-AF ERITREAN >60 Normal >=60 [facility] Comment on above: Performed By: #### T 7, LIPID, TSH, CMP ####[facility] Zrvgsjndfa[address] [place], [place] [address]Dr. Tadeo Smyth EGFR-NON AF ERITREAN >60 Normal >=60 [facility] Comment on above: Performed By: #### T 7, LIPID, TSH, CMP ####[facility] Fupkagsdmi40[address] [place] [address]Dr. Tadeo Smyth Globulin (S) [Mass/Vol] 4.8 g/dL Normal [facility] Comment on above: Performed By: #### T 7, LIPID, TSH, CMP ####[facility] Owjbftlcgq7272 [place] [address]Dr. Tadeo Smyth Glucose [Mass/Vol] 114 mg/dL Critically high 74-106 [facility] Comment on above: Performed By: #### T 7, LIPID, TSH, CMP ####[facility] Ihfqipiogu[address] [place], [place] [address]Dr. Tadeo Smyth Potassium [Moles/Vol] 3.6 mmol/L Normal 3.5-5.1 [facility] Comment on above: Performed By: #### T 7, LIPID, TSH, CMP ####[facility] Nsjoyhzcxi[address] [place], [place] [address]Dr. Tadeo Smyth Protein [Mass/Vol] 8.5 g/dL Critically high 6.4-8.2 [facility] Comment on above: Performed By: #### T 7, LIPID, TSH, CMP ####[facility] Aoncipddvz0514[address] [place], [place] [address]Dr. Tadeo Smyth Sodium [Moles/Vol] 140 mmol/L Normal 136-145 [facility] Comment on above: Performed By: #### T 7, LIPID, TSH, CMP ####[facility] Kegfpneuqs99[address] [place], [place] [address]Dr. Tadeo Smyth Urea nitrogen [Mass/Vol] 23.0 mg/dL Critically high 7.0-18.0 [facility] Comment on above: Performed By: #### T 7, LIPID, TSH, CMP ####[facility] Ahkcjquvrp[address] [place], [place] [address]Dr. Tadeo Smyth Urea nitrogen/Creatinine [Mass ratio] 25.0 mg/mg Normal [facility] Comment on above: Performed By: #### T 7, LIPID, TSH, CMP ####[facility] Cqsfozfoel0286 [place] [phone]. Margotnicole Haja TSHon 07-08-2022 TSH 3.748 uIU/mL Critically high 0.358-3.740 [facility] Comment on above: Performed By: #### T 7, LIPID, TSH, CMP ####[facility] Ndfldsikqz0137 [place] [address]Dr. Tadeo Smyth UA RANDOM W/MICROSCOPICon BACTERIA TRACE Abnormal NONE SEEN [facility] Comment on above: Performed By: #### U AMIC ####[facility] Uzckefiohk80[address] [place] [address]Dr. Tadeo Smyth Bilirubin Ql (U) Negative Normal NEGATIVE [facility] Comment on above: Performed By: #### U AMIC ####[facility] Yfrpylrajf[address] [place] [address]Dr. Tadeo Smyth CAST NONE SEEN Normal NONE SEEN [facility] Comment on above: Performed By: #### U AMIC ####[facility] Ondrnzujup[address] [place] [address]Dr. Tadeo Smyth Clarity (U) CLEAR Normal CLEAR [facility] Comment on above: Performed By: #### U AMIC ####[facility] Hymcbhukzh[address] [place] [address]Dr. Tadeo Smyth Color (U) YELLOW Normal YELLOW [facility] Comment on above: Performed By: #### U AMIC ####[facility] Rvsjkcsaid6472 [place] [address]Dr. Tadeo Smyth Crystals LM Nom (Urine sed) NONE SEEN Normal NONE SEEN [facility] Comment on above: Performed By: #### U AMIC ####[facility] Weuzggrwib[address] [place], [place] [address]Dr. Tadeo Smyth Epithelial cells LM Ql (Urine sed) FEW Abnormal NONE SEEN /RARE [facility] Comment on above: Performed By: #### U AMIC ####[facility] Rephdupgru[address] [place], [place] [address]Dr. Tadeo Smyth Glucose Ql (U) Negative Normal NEGATIVE [facility] Comment on above: Performed By: #### U AMIC ####[facility] Vrxapwivdh9435 [place] [address]Dr. Tadeo Smyth Hemoglobin Ql (U) SMALL Abnormal NEGATIVE [facility] Comment on above: Performed By: #### U AMIC ####[facility] Wjxtstbbcn4556 [place] [address]Dr. Tadeo Smyth Ketones Ql (U) TRACE Abnormal NEGATIVE [facility] Comment on above: Performed By: #### U AMIC ####[facility] Veyriirgpt[address] [place], [place] [address]Dr. Tadeo Smyth LEUKOCYTES TRACE Abnormal NEGATIVE [facility] Comment on above: Performed By: #### U AMIC ####[facility] Ryjtrdaokp[address] [place], [place] [address]Dr. Tadeo Smyth MUCOUS NONE SEEN Normal NONE SEEN [facility] Comment on above: Performed By: #### U AMIC ####[facility] Kvbigqcsfy9[address] [place], [place] [address]Dr. Tadeo Smyth Nitrite Ql (U) Negative Normal NEGATIVE [facility] Comment on above: Performed By: #### U AMIC ####[facility] Nscxuecvrl[address] [place], [place] [address]Dr. Tadeo Smyth pH (U) 6.5 [pH] Normal 5-9 [facility] Comment on above: Performed By: #### U AMIC ####[facility] Wesqctfgrr[address] [place], [place] [address]Dr. Tadeo Smyth RBC 5-10 Abnormal 0-2 [facility] Comment on above: Performed By: #### U AMIC ####[facility] Fqoeekkvgz[address] [place], [place] [address]Dr. Tadeo Smyth SPEC GRAVITY 1.020 Normal 1.005-<=1.0 25 [facility] Comment on above: Performed By: #### U AMIC ####[facility] Yobxljqhym8[address] [place], [place] [address]Dr. Tadeo Smyth UA PROTEIN 30 mg/dl Abnormal NEGATIVE/ TRACE [facility] Comment on above: Performed By: #### U AMIC ####[facility] V[address]btagzjt7110 [place], [place] [address]Gg. Tadeo Smyth Urobilinogen Qn (U) 0.2 {Benito'U}/dL Normal 0.2 - 1. 0 [facility] Comment on above: Performed By: #### U AMIC ####[facility] Dxusrrotva3006 [place], [place] [address]Lp. Tadeo Smyth WBC 2-5 Abnormal NONE SEEN [facility] Comment on above: Performed By: #### U AMIC ####[facility] Jucxvsmral7534 [place], [place] [address]Ik. Tadeo Haja Covid-19 PCR (CVDTBH)on 06-07 SARS-CoV-2 (COVID-19) RNA CHEN+probe Ql (Unsp spec) Not detected Normal NOT DETECTED [facility] Comment on above: Result Comment: When [...] for this test is supported by the [employer] of Health and Human Service's declaration that [...] be used). Performed By: #### C VDTBH ####[facility] Fsoxsezxkk4631 [place] [phone]. Tadeo Haja CULTURE URINEon 06-09-2022 CULTURE URINE Normal [facility] Comment on above: Performed By: #### U RCX ####[facility] Vjsaivfdit1013 [place] [phone]. Tadeo Smyth GI PANEL (PCR)on 06-07-2022 Adenovirus F 40/41 Not detected Normal NOT DETECTED [facility] Comment on above: Performed By: #### G IPANEL ####[facility] Dvfaqrnhss[address] [place], [place] [address]Dr. Tadeo Smyth Astrovirus Not detected Normal NOT DETECTED [facility] Comment on above: Performed By: #### G IPANEL ####[facility] Osgpvkvbvd[address] [place], [place] [address]Dr. Tadeo Smyth C. Diff toxin A/B Not detected Normal NOT DETECTED [facility] Comment on above: Performed By: #### G IPANEL ####[facility] Leoulxnymp12[address] [place], [place] [address]Dr. Tadeo Smyth Campylobacter Not detected Normal NOT DETECTED [facility] Comment on above: Performed By: #### G IPANEL ####[facility] Vidsvwqhtm060[address] [place], [place] [address]Dr. Tadeo Smyth Cryptosporidium Not detected Normal NOT DETECTED [facility] Comment on above: Performed By: #### G IPANEL ####[facility] Eahaunpcqc[address] [place], [place] [address]Dr. Tadeo Smyth Cyclos. Cayetanensis Not detected Normal NOT DETECTED [facility] Comment on above: Performed By: #### G IPANEL ####[facility] Tuwsuoquon[address] [place], [place] [address]Dr. Tadeo Smyth E. Coli O157 Not Applicable Normal Not Applicable [facility] Comment on above: Performed By: #### G IPANEL ####[facility] Drgnpvzffb7[address] [place], [place] [address]Dr. Tadeo Smyth E. histolytica Not detected Normal NOT DETECTED [facility] Comment on above: Performed By: #### G IPANEL ####[facility] Ucqhrqqdgk12[address] [place], [place] [address]Dr. Tadeo Smyth EAEC Not detected Normal NOT DETECTED [facility] Comment on above: Performed By: #### G IPANEL ####[facility] Rnlwvwuikc[address] [place], [place] [address]Dr. Tadeo Smyth EIEC Not detected Normal NOT DETECTED [facility] Comment on above: Performed By: #### G IPANEL ####[facility] Fctzareplt6888 [place] [address]Dr. Tadeo Smyth EPEC Not detected Normal NOT DETECTED [facility] Comment on above: Performed By: #### G IPANEL ####[facility] Dcqcigsugz2545 [place] [address]Dr. Tadeo Smyth ETEC Not detected Normal NOT DETECTED [facility] Comment on above: Performed By: #### G IPANEL ####[facility] Cfbhsbozhy0645 [place] [address]Dr. Margotnicole Smyth G. Lamblia Not detected Normal NOT DETECTED [facility] Comment on above: Performed By: #### G IPANEL ####[facility] Ttbizxlvqi90[address] [place], [place] [address]Dr. Tadeo Smyth GIPANEL CONTROLS PASSED Normal [facility] Comment on above: Performed By: #### G IPANEL ####[facility] Xogwiddtgg894[address] [place], [place] [address]Dr. Tadeo [facility] BACTERIA Normal T [facility] Comment on above: Performed By: #### G IPANEL ####[facility] Dyqbkrdhmf[address] [place], [place] [address]Dr. Tadeo Smyth GIPNLHD ECOLI GI PANEL DIARRHEAGEN IC E.COLI / SHIGELLA Normal [facility] Comment on above: Performed By: #### G IPANEL ####[facility] Wwtgkrgxso9[address] [place], [place] [address]Dr. Tadeo Smyth GIPNLHD INFO SEE BELOW Normal [facility] Comment on above: Result Comment: EAEC - Enteroaggregative E. Coli EPEC- Enteropathogenic E. Coli ETEC- Enterotoxigenic E. Coli lt/st STEC- Shigella-like toxin-producing E. Coli stx1/stx2 EIEC- Shigella/Enteroinvasive E. Coli Performed By: #### G IPANEL ####[facility] Rjrfbilkkq64[address] [place], [place] [address]Dr. Yinicole Smyth GIPNLHD PARASITES GI PANEL PARASITES Normal [facility] Comment on above: Performed By: #### G IPANEL ####[facility] Mewfedzvsp9248 [place] [address]Dr. Tadeo Smyth GIPNLHD VIRUS GI PANEL VIRUSES Normal [facility] Comment on above: Performed By: #### G IPANEL ####[facility] Yjbsukcwft2326 [place] [address]Dr. Tadeo Smyth Norovirus GI/GII Not detected Normal NOT DETECTED [facility] Comment on above: Performed By: #### G IPANEL ####[facility] Tchhrdmqes029[address] [place], [place] [address]Dr. Tadeo Smyth P. Shigelloides Not detected Normal NOT DETECTED [facility] Comment on above: Performed By: #### G IPANEL ####[facility] Ptvkeazmot86[address] [place], [place] [address]Dr. Tadeo Smyth Rotavirus A Not detected Normal NOT DETECTED [facility] Comment on above: Performed By: #### G IPANEL ####[facility] Suqxrwduyr6[address] [place], [place] [address]Dr. Tadeo Smyth Salmonella Not detected Normal NOT DETECTED [facility] Comment on above: Performed By: #### G IPANEL ####[facility] Xymxmltzsh8[address] [place], [place] [address]Dr. Tadeo Smyth Sapovirus Not detected Normal NOT DETECTED [facility] Comment on above: Performed By: #### G IPANEL ####[facility] Kaxnehtbtg7[address] [place], [place] [address]Dr. Tadeo Smyth STEC Not detected Normal NOT DETECTED [facility] Comment on above: Performed By: #### G IPANEL ####[facility] Ixadxwcoef[address] [place], [place] [address]Dr. Tadeo Smyth Vibrio Not detected Normal NOT DETECTED [facility] Comment on above: Performed By: #### G IPANEL ####[facility] Dolwrhisbn[address] [place], [place] [address]Dr. Tadeo Smyth Vibrio Cholera Not detected Normal NOT DETECTED [facility] Comment on above: Performed By: #### G IPANEL ####[facility] Vxizvxiwcj4[address] [place], [place] [address]Dr. Tadeo Smyth Y. Enterocolitica Not detected Normal NOT DETECTED [facility] Comment on above: Performed By: #### G IPANEL ####[facility] Mlazjvsfry[address] [place], [place] [address]Dr. Tadeo Smyth AMYLASEon 06-06-2022 Amylase [Catalytic activity/Vol] 61 U/L Normal 25-115 [facility] Comment on above: Performed By: #### A MY, LIPA ####[facility] Yxbhxtvuko3[address] [place], [place] [address]Dr. Tadeo Smyth CBC AUTO DIFFon 06-06-2022 BASO # 0.0 103/ul Normal 0.0-0.1 [facility] Comment on above: Performed By: #### C BC ####[facility] Ofswygcfbg3997[address] [place], [place] [address]Dr. Tadeo Smyth Basophils/100 WBC (Bld) 0.5 % Normal 0.2-2.0 [facility] Comment on above: Performed By: #### C BC ####[facility] Ukjfjvuwdf22[address] [place], [place] [address]Dr. Tadeo Smyth EO # 0.2 103/ul Normal 0.0-0.7 [facility] Comment on above: Performed By: #### C BC ####[facility] Twnnlhgenh[address] [place], [place] [address]Dr. Tadeo mSyth Eosinophils/100 WBC (Bld) 3.4 % Normal 0.9-7.0 [facility] Comment on above: Performed By: #### C BC ####[facility] Utlucmbggt1201[address] [place], [place] [address]Dr. Tadeo Smyth Erythrocyte distribution width (RBC) [Ratio] 13.2 % Normal 11.0-15.0 [facility] Comment on above: Performed By: #### C BC ####[facility] Juojbbeoui[address] [place], [place] [address]Dr. Tadeo Smyth Hematocrit (Bld) [Volume fraction] 38.3 % Normal 36.0-48.0 [facility] Comment on above: Performed By: #### C BC ####[facility] Qajqkdaaxk3681 [place] [id number]. Tadeo Smyth Hemoglobin (Bld) [Mass/Vol] 12.0 g/dL Normal 12.0-16.0 [facility] Comment on above: Performed By: #### C BC ####[facility] Zqiuahloyh7490 [place] [phone]. Tadeo Smyth IG # 0.01 10e3/ul Normal 0.00-0.03 [facility] Comment on above: Performed By: #### C BC ####[facility] Pfxyqoyvqo[address] [place], [place] [address]Dr. Tadeo Smyth IG % 0.2 % Normal 0.0-0.5 [facility] Comment on above: Performed By: #### C BC ####[facility] Pybcliuqcl8[address] [place], [place] [address]Dr. Tadeo Smyth LYMPH # 1.7 103/ul Normal 1.2-3.8 [facility] Comment on above: Performed By: #### C BC ####[facility] Vtvhjypwqk[address] [place], [place] [address]Dr. Tadeo Smyth Lymphocytes/100 WBC (Bld) 28.1 % Normal 20.5-60.0 [facility] Comment on above: Performed By: #### C BC ####[facility] Jkryydmrld[address] [place], [place] [address]Dr. Tadeo Smyth MANUAL DIFF REQ NO Normal [facility] Comment on above: Performed By: #### C BC ####[facility] Jeivinvwko[address] [place], [place] [address]Dr. Tadeo Smyth MCH (RBC) [Entitic mass] 28.5 pg Normal 26.7-34.0 [facility] Comment on above: Performed By: #### C BC ####[facility] Wcfeuwuuxb6[address] [place], [place] [address]Dr. Tadeo Smyth MCHC (RBC) [Mass/Vol] 31.3 g/dL Normal 29.9-35.2 [facility] Comment on above: Performed By: #### C BC ####[facility] Ikgslmlpsy20[address] [place] [id number]. Tadeo Smyth MCV (RBC) [Entitic vol] 91.0 fL Normal 81.0-99.0 [facility] Comment on above: Performed By: #### C BC ####[facility] Chrgxhagbz6418 [place] [id number]. Tadeo Smyth MONO # 0.4 103/ul Normal 0.3-0.8 [facility] Comment on above: Performed By: #### C BC ####[facility] Luxbqgfook7536 [place] [id number]. Tadeo Smyth Monocytes/100 WBC (Bld) 7.1 % Normal 1.7-12.0 [facility] Comment on above: Performed By: #### C BC ####[facility] Nizldjyssr[address] [place], [place] [address]Dr. Tadeo Smyth NEUT # 3.6 103/ul Normal 1.4-6.5 [facility] Comment on above: Performed By: #### C BC ####[facility] Fmgpsxlnxb9[address] [place], [place] [address]Dr. Tadeo Smyth Neutrophils/100 WBC (Bld) 60.7 % Normal 43.0-75.0 [facility] Comment on above: Performed By: #### C BC ####[facility] Ofytueyrqj699[address] [place], [place] [address]Dr. Tadeo Smyth Platelet mean volume (Bld) [Entitic vol] 8.9 fL Critically low 9.5-13.5 [facility] Comment on above: Performed By: #### C BC ####[facility] Spxuepxxtj3788 [place] [phone]. Tadeo Smyth PLT 374 103/ul Normal 150-450 [facility] Comment on above: Performed By: #### C BC ####[facility] Orzfthxmyw[address] [place], [place] [address]Dr. Tadeo Smyth RBC 4.21 106/ul Normal 4.20-5.40 [facility] Comment on above: Performed By: #### C BC ####[facility] Remhvrjivu6244 [place] [address]Dr. Tadeo Smyth WBC 5.9 103/ul Normal 4.0-11.0 [facility] Comment on above: Performed By: #### C BC ####[facility] Axqnnflhrq2339[address] [place], [place] [address]Dr. Tadeo Smyth CT ABD/PELV W CONon 06-06-[address] ABD/PELV W CON Normal [facility] ER URINE PROFILEon 2 Bilirubin Ql (U) Negative Normal NEGATIVE [facility] Comment on above: Performed By: #### Matthew FRANCISCO UMICRO ####[facility] Jdgrymlhje417[address] [place], [place] [address]Dr. Tadeo Smyth Clarity (U) CLOUDY Abnormal CLEAR [facility] Comment on above: Performed By: #### Matthew FRANCISCO UMICRO ####[facility] Oqfwloyctg41[address] [place], [place] [address]Dr. Tadeo Smyth Color (U) LT. YELLOW Normal YELLOW [facility] Comment on above: Performed By: #### RANDI MERCHANTICRO ####[facility] Cgzyiiltvy211[address] [place], [place] [address]Dr. Tadeo CAMARGOD A micrscopic examina tion will be performed if indicated. Normal [facility] Comment on above: Performed By: #### Matthew FRANCISCO UMICRO ####[facility] Onarbwohlo742[address] [place], [place] [address]Dr. Tadeo Smyth Glucose Ql (U) Negative Normal NEGATIVE [facility] Comment on above: Performed By: #### Matthew FRANCISCO UMICRO ####[facility] Vhkucraogx8508[address] [place], [place] [address]Dr. Tadeo Smyth Hemoglobin Ql (U) TRACE-INTACT Abnormal NEGATIVE [facility] Comment on above: Performed By: #### Matthew FRANCISCO UMICRO ####[facility] Ljelqtusrh998[address] [place], [place] [address]Dr. Tadeo Smyth Ketones Ql (U) Negative Normal NEGATIVE [facility] Comment on above: Performed By: #### SANDRO MERCHANTRO ####[facility] Bwofjldgmr4[address] [place] [address]Dr. Tadeo Smyth LEUKOCYTES SMALL Abnormal NEGATIVE [facility] Comment on above: Performed By: #### KAROL MERCHANT ####[facility] Oypnftbkfq9456 [place] [address]Dr. Tadeo Smyth Nitrite Ql (U) Negative Normal NEGATIVE [facility] Comment on above: Performed By: #### KAROL MERCHANT ####[facility] Vzepjzdhql5175 [place] [address]Dr. Tadeo Smyth pH (U) 6.0 [pH] Normal 5-9 [facility] Comment on above: Performed By: #### KAROL MERCHANT ####[facility] Oizijkgvgj6491 [place] [address]Dr. Tadeo Smyth SPEC GRAVITY 1.020 Normal 1.005-<=1.0 25 [facility] Comment on above: Performed By: #### KAROL MERCHANT ####[facility] Qztgoawwho5014 [place] [address]Dr. Tadeo Smyth UA PROTEIN Negative Normal NEGATIVE/ TRACE [facility] Comment on above: Performed By: #### KAROL MERCHANT ####[facility] Avlytflrnm659[address] [place], [place] [address]Dr. Tadeo Smyth UR MICRO IND INDICATED Normal [facility] Comment on above: Performed By: #### KAROL MERCHANT ####[facility] Clnfhgvdbg314[address] [place], [place] [address]Dr. Tadeo Smyth Urobilinogen Qn (U) 0.2 {Benito'U}/dL Normal 0.2 - 1. 0 [facility] Comment on above: Performed By: #### KAROL MERCHANT ####[facility] Vygrohxarw6[address] [place], [place] [address]Dr. Tadeo Smyth LIPASEon 06-06-2022 Lipase [Catalytic activity/Vol] 100.0 U/L Normal 73.0-393.0 [facility] Comment on above: Performed By: #### A MY, LIPA ####[facility] Slpysxgrxb8263 [place] [address]Dr. Tadeo Smyth PROF 14(COMP METB)on 022 Albumin [Mass/Vol] 3.3 g/dL Critically low 3.4-5.0 [facility] Comment on above: Performed By: #### C MP ####[facility] Lykwnidbfn9390 [place] [address]Dr. Tadeo Smyth Albumin/Globulin [Mass ratio] 0.9 {ratio} Normal [facility] Comment on above: Performed By: #### C MP ####[facility] Erhfrtokpg7633[address] [place], [place] [address]Dr. Tadeo Smyth ALP [Catalytic activity/Vol] 140 U/L Critically high 46-116 [facility] Comment on above: Performed By: #### C MP ####[facility] Buhnigenbu093[address] [place], [place] [address]Dr. Tadeo Smyth ALT [Catalytic activity/Vol] 23 U/L Normal 14-59 [facility] Comment on above: Performed By: #### C MP ####[facility] Ckhssrjcim408[address] [place], [place] [address]Dr. Tadeo Symth Anion gap [Moles/Vol] 11.6 mmol/L Normal [facility] Comment on above: Performed By: #### C MP ####[facility] Fheerqpris017[address] [place], [place] [address]Dr. Tadeo Smyth AST [Catalytic activity/Vol] 18 U/L Normal 15-37 [facility] Comment on above: Performed By: #### C MP ####[facility] Otgrbrqcik955[address] [place], [place] [address]Dr. Tadeo Smyth Bilirubin [Mass/Vol] 0.2 mg/dL Normal 0.2-1.0 [facility] Comment on above: Performed By: #### C MP ####[facility] Hrqmeafnxo3298[address] [place], [place] [address]Dr. Tadeo Smyth Calcium [Mass/Vol] 8.8 mg/dL Normal 8.5-10.1 [facility] Comment on above: Performed By: #### C MP ####[facility] Tumauzpmua[address] [place] [address]Dr. Tadeo Smyth Chloride [Moles/Vol] 109 mmol/L Critically high 98-107 [facility] Comment on above: Performed By: #### C MP ####[facility] Dhgjcmhxio4271 [place] [address]Dr. Tadeo Smyth CO2 [Moles/Vol] 26.3 mmol/L Normal 21.0-32.0 [facility] Comment on above: Performed By: #### C MP ####[facility] Qxalgixzwf7493 [place] [address]Dr. Tadeo Smyth Creatinine [Mass/Vol] 0.81 mg/dL Normal 0.55-1.02 [facility] Comment on above: Performed By: #### C MP ####[facility] Jnwxjkenwe8477[address] [place], [place] [address]Dr. Tadeo Smyth EGFR-AF ERITREAN >60 Normal >=60 [facility] Comment on above: Performed By: #### C MP ####[facility] Atalfodnzc123[address] [place], [place] [address]Dr. Tadeo Smyth EGFR-NON AF ERITREAN >60 Normal >=60 [facility] Comment on above: Performed By: #### C MP ####[facility] Mbrbicxpoo4634[address] [place], [place] [address]Dr. Tadeo Smyth Globulin (S) [Mass/Vol] 3.7 g/dL Normal [facility] Comment on above: Performed By: #### C MP ####[facility] Kfgtzkcmjk168[address] [place], [place] [address]Dr. Tadeo Smyth Glucose [Mass/Vol] 90 mg/dL Normal 74-106 [facility] Comment on above: Performed By: #### C MP ####[facility] Trxhdwdxcu3098[address] [place], [place] [address]Dr. Tadeo Smyth Potassium [Moles/Vol] 3.9 mmol/L Normal 3.5-5.1 [facility] Comment on above: Performed By: #### C MP ####[facility] Ymfrzkgccc[address] [place], [place] [address]Dr. Tadeo Smyth Protein [Mass/Vol] 7.0 g/dL Normal 6.4-8.2 [facility] Comment on above: Performed By: #### C MP ####[facility] Cbruhwqrkf7254 [place] [address]Dr. Margotnicole Smyth Sodium [Moles/Vol] 143 mmol/L Normal 136-145 [facility] Comment on above: Performed By: #### C MP ####[facility] Vrxvbkwmnu8647 [place] [address]Dr. Tadeo Smyth Urea nitrogen [Mass/Vol] 12.0 mg/dL Normal 7.0-18.0 [facility] Comment on above: Performed By: #### C MP ####[facility] Ruemgegujq1145[address] [place], [place] [address]Dr. Tadeo Smyth Urea nitrogen/Creatinine [Mass ratio] 14.8 mg/mg Normal [facility] Comment on above: Performed By: #### C MP ####[facility] Kwrahdfymf4437[address] [place], [place] [address]Dr. Tadeo Smyth URINE MICROSCOPIC ONLYon BACTERIA LARGE Abnormal NONE SEEN [facility] Comment on above: Performed By: #### KAROL MERCHANT ####[facility] Gsuoumuiou1650[address] [place], [place] [address]Dr. Tadeo Smyth Bacteria identified Cx Nom (U) INDICATED Normal [facility] Comment on above: Performed By: #### SANDRO MERCHANTRO ####[facility] Jnsiibcacd6870[address] [place], [place] [address]Dr. Tadeo Smyth CAST NONE SEEN Normal NONE SEEN [facility] Comment on above: Performed By: #### SANDRO MERCHANTRO ####[facility] Wbjlznghet814[address] [place], [place] [address]Dr. Tadeo Smyth Crystals LM Nom (Urine sed) NONE SEEN Normal NONE SEEN [facility] Comment on above: Performed By: #### SANDRO MERCHANTRO ####[facility] Hwohjrconw901[address] [place], [place] [address]Dr. Tadeo Smyth Epithelial cells LM Ql (Urine sed) RARE Normal NONE SEEN /RARE [facility] Comment on above: Performed By: #### RANDI MERCHANTICRO ####[facility] Zpdfksxjgc1845 [place] [address]Dr. Tadeo Smyth MUCOUS TRACE Abnormal NONE SEEN [facility] Comment on above: Performed By: #### Matthew FRANCISCO UMICRO ####[facility] Ggbfyjiuzn9269[address] [place], [place] [address]Dr. Margotnicole Haja RBC 0-2 Normal 0-2 [facility] Comment on above: Performed By: #### Matthew FRANCISCO UMICRO ####[facility] Gowsqdrust9189[address] [place], [place] [address]Dr. Tadeo Haja WBC 2-5 Abnormal NONE SEEN [facility] Comment on above: Performed By: #### SANDRO MERCHANTRO ####[facility] Bjxeblzmol6538[address] [place], [place] [address]Dr. Tadeo Haja AMYLASEon 06-04-2022 Amylase [Catalytic activity/Vol] 61 U/L Normal 25-115 [facility] Comment on above: Performed By: #### A MY, CMP, LIPA ####[facility] Bbqqqjrqjd2355[address] [place], [place] [address]Dr. Tadeo Haja CBC AUTO DIFFon 06-04-2022 BASO # 0.0 103/ul Normal 0.0-0.1 [facility] Comment on above: Performed By: #### C BC ####[facility] Kxqlzszvcm066[address] [place], [place] [address]Dr. Margotnicole Smyth Basophils/100 WBC (Bld) 0.5 % Normal 0.2-2.0 [facility] Comment on above: Performed By: #### C BC ####[facility] Zsadnsywve6618[address] [place], [place] [address]Dr. Tadeo Smyth EO # 0.3 103/ul Normal 0.0-0.7 [facility] Comment on above: Performed By: #### C BC ####[facility] Rcycqjhbmk0030[address] [place], [place] [address]Dr. Tadeo Smyth Eosinophils/100 WBC (Bld) 4.7 % Normal 0.9-7.0 [facility] Comment on above: Performed By: #### C BC ####[facility] Hvhzqqipfj937[address] [place], [place] [address]Dr. Tadeo Smyth Erythrocyte distribution width (RBC) [Ratio] 13.2 % Normal 11.0-15.0 [facility] Comment on above: Performed By: #### C BC ####[facility] Aubmmjwufy2634[address] [place], [place] [address]Dr. Tadeo Smyth Hematocrit (Bld) [Volume fraction] 36.9 % Normal 36.0-48.0 [facility] Comment on above: Performed By: #### C BC ####[facility] Ngqqeawxqf8[address] [place], [place] [address]Dr. Tadeo Smyth Hemoglobin (Bld) [Mass/Vol] 11.9 g/dL Critically low 12.0-16.0 [facility] Comment on above: Performed By: #### C BC ####[facility] Gujmsxgwtv778[address] [place], [place] [address]Dr. Tadeo Smyth IG # 0.01 10e3/ul Normal 0.00-0.03 [facility] Comment on above: Performed By: #### C BC ####[facility] Ptpgmkeegi3312[address] [place], [place] [address]Dr. Tadeo Smyth IG % 0.2 % Normal 0.0-0.5 [facility] Comment on above: Performed By: #### C BC ####[facility] Agetrpdbpa150[address] [place], [place] [address]Dr. Tadeo Smyth LYMPH # 2.3 103/ul Normal 1.2-3.8 [facility] Comment on above: Performed By: #### C BC ####[facility] Teewutiwbz919[address] [place], [place] [address]Dr. Tadeo Smyth Lymphocytes/100 WBC (Bld) 37.3 % Normal 20.5-60.0 [facility] Comment on above: Performed By: #### C BC ####[facility] Kvrpdaogfx9555[address] [place], [place] [address]Dr. Tadeo Smyth MANUAL DIFF REQ NO Normal [facility] Comment on above: Performed By: #### C BC ####[facility] Ipiziyyenl7376 [place] [address]Dr. Tadeo Smyth MCH (RBC) [Entitic mass] 29.0 pg Normal 26.7-34.0 [facility] Comment on above: Performed By: #### C BC ####[facility] Hlqgdsouhp127[address] [place], [place] [address]Dr. Tadeo Smyth MCHC (RBC) [Mass/Vol] 32.2 g/dL Normal 29.9-35.2 [facility] Comment on above: Performed By: #### C BC ####[facility] Pgstlzhovw369[address] [place], [place] [address]Dr. Tadeo Smyth MCV (RBC) [Entitic vol] 90.0 fL Normal 81.0-99.0 [facility] Comment on above: Performed By: #### C BC ####[facility] Tiwhsswnrz1390[address] [place], [place] [address]Dr. Tadeo Smyth MONO # 0.4 103/ul Normal 0.3-0.8 [facility] Comment on above: Performed By: #### C BC ####[facility] Tymjwhaghr0201[address] [place], [place] [address]Dr. Tadeo Smyth Monocytes/100 WBC (Bld) 6.8 % Normal 1.7-12.0 [facility] Comment on above: Performed By: #### C BC ####[facility] Cwuucsiuqq340[address] [place], [place] [address]DrNeo Smyth NEUT # 3.2 103/ul Normal 1.4-6.5 [facility] Comment on above: Performed By: #### C BC ####[facility] Kyjuxtrsoy6230[address] [place], [place] [address]DrNeo Smyth Neutrophils/100 WBC (Bld) 50.5 % Normal 43.0-75.0 [facility] Comment on above: Performed By: #### C BC ####[facility] Drwtrdykwt69024[address] [place], [place] [address]Dr. Tadeo Smyth Platelet mean volume (Bld) [Entitic vol] 8.9 fL Critically low 9.5-13.5 [facility] Comment on above: Performed By: #### C BC ####[facility] Kts[address]mmgssc230[address] [place] [address]Dr. Tadeo Smyth PLT 387 103/ul Normal 150-450 [facility] Comment on above: Performed By: #### C BC ####[facility] Uyhlmlhnlh8167 [place] [address]Dr. Margotnicole Haja RBC 4.10 106/ul Critically low 4.20-5.40 [facility] Comment on above: Performed By: #### C BC ####[facility] Scaxygmytx0363 [place] [address]Dr. Tadeo Smyth WBC 6.2 103/ul Normal 4.0-11.0 [facility] Comment on above: Performed By: #### C BC ####[facility] Tiksyqqdws8840[address] [place], [place] [address]Dr. Tadeo Smyth CT ABD/PELV W CONon 06-04-[address] ABD/PELV W CON Normal [facility] ER URINE PROFILEon 2 Bilirubin Ql (U) Negative Normal NEGATIVE [facility] Comment on above: Performed By: #### KAROL MERCHANT ####[facility] Nptngtdfzv501[address] [place], [place] [address]Dr. Tadeo Smyth Clarity (U) CLEAR Normal CLEAR [facility] Comment on above: Performed By: #### KAROL MERCHANT ####[facility] Lbjlyoxkzm0274 [place] [address]Dr. Tadeo Smyth Color (U) LT. YELLOW Normal YELLOW [facility] Comment on above: Performed By: #### KAROL MERCHANT ####[facility] Ccsclkfarr1798[address] [place], [place] [address]Dr. Tadeo Smyth ERUAHD A micrscopic examina tion will be performed if indicated. Normal [facility] Comment on above: Performed By: #### KAROL MERCHANT ####[facility] Lgvezqrsrf[address] [place], [place] [address]Dr. Tadeo Smyth Glucose Ql (U) Negative Normal NEGATIVE [facility] Comment on above: Performed By: #### SANDRO MERCHANTRO ####[facility] Mwggwajpmk88[address] [place], [place] [address]Dr. Tadeo Smyth Hemoglobin Ql (U) TRACE-INTACT Abnormal NEGATIVE [facility] Comment on above: Performed By: #### SANDRO MERCHANTRO ####[facility] Ebysejjwrt0238[address] [place], [place] [address]Dr. Tadeo Smyth Ketones Ql (U) Negative Normal NEGATIVE [facility] Comment on above: Performed By: #### SANDRO MERCHANTRO ####[facility] Brfgoydbed8189[address] [place], [place] [address]Dr. Tadeo Smyth LEUKOCYTES Negative Normal NEGATIVE [facility] Comment on above: Performed By: #### SANDRO MERCHANTRO ####[facility] Fqjjfnguoe384[address] [place], [place] [address]Dr. Tadeo Smyth Nitrite Ql (U) Negative Normal NEGATIVE [facility] Comment on above: Performed By: #### SANDRO MERCHANTRO ####[facility] Xzavbuyvny497[address] [place], [place] [address]Dr. Tadeo Haja pH (U) 6.5 [pH] Normal 5-9 [facility] Comment on above: Performed By: #### SANDRO MERCHANTRO ####[facility] Uqfnohqsgt880[address] [place], [place] [address]Dr. Tadeo Smyth SPEC GRAVITY 1.015 Normal 1.005-<=1.0 25 [facility] Comment on above: Performed By: #### SANDRO MERCHANTRO ####[facility] Zmdyercdrg6595[address] [place], [place] [address]Dr. Tadeo Smyth UA PROTEIN Negative Normal NEGATIVE/ TRACE [facility] Comment on above: Performed By: #### SANDRO MERCHANTRO ####[facility] Tshdsddnbf2197[address] [place], [place] [address]Dr. Tadeo Smyth UR MICRO IND INDICATED Normal [facility] Comment on above: Performed By: #### KAROL MERCHANT ####[facility] Appoynuizz4223 [place] [address]Dr. Tadeo Smyth Urobilinogen Qn (U) 0.2 {Benito'U}/dL Normal 0.2 - 1. 0 [facility] Comment on above: Performed By: #### KAROL MERCHANT ####[facility] Qspmtooscj7909 [place] [address]Dr. Margotnicole Smyth LIPASEon 06-04-2022 Lipase [Catalytic activity/Vol] 81.0 U/L Normal 73.0-393.0 [facility] Comment on above: Performed By: #### A MY, CMP, LIPA ####[facility] Ghpfxfrbsd9195[address] [place], [place] [address]Dr. Margotnicole Smyth PROF 14(COMP METB)on 022 Albumin [Mass/Vol] 3.6 g/dL Normal 3.4-5.0 [facility] Comment on above: Performed By: #### A MY, CMP, LIPA ####[facility] Ghpgjdblpe6205 [place] [address]Dr. Margotnicole Smyth Albumin/Globulin [Mass ratio] 1.0 {ratio} Normal [facility] Comment on above: Performed By: #### A MY, CMP, LIPA ####[facility] Ggrdiidsgp1032 [place] [address]Dr. Margotnicole Smyth ALP [Catalytic activity/Vol] 150 U/L Critically high 46-116 [facility] Comment on above: Performed By: #### A MY, CMP, LIPA ####[facility] Moscxhhank0706 [place] [address]Dr. Tadeo Smyth ALT [Catalytic activity/Vol] 23 U/L Normal 14-59 [facility] Comment on above: Performed By: #### A MY, CMP, LIPA ####[facility] Zwocqamtwl1218 [place] [address]Dr. Tadeo Smyth Anion gap [Moles/Vol] 13.2 mmol/L Normal [facility] Comment on above: Performed By: #### A MY, CMP, LIPA ####[facility] Zhgipmxpnp1751 [place] [address]Dr. Tadeo Smyth AST [Catalytic activity/Vol] 12 U/L Critically low 15-37 [facility] Comment on above: Performed By: #### A MY, CMP, LIPA ####[facility] Nrqvqaoefm0797 [place] [address]Dr. Tadeo Smyth Bilirubin [Mass/Vol] 0.1 mg/dL Critically low 0.2-1.0 [facility] Comment on above: Performed By: #### A MY, CMP, LIPA ####[facility] Zkvpmukeuk2[address] [place], [place] [address]Dr. Tadeo Smyth Calcium [Mass/Vol] 9.0 mg/dL Normal 8.5-10.1 [facility] Comment on above: Performed By: #### A MY, CMP, LIPA ####[facility] Rdrvfsdorq[address] [place], [place] [address]Dr. Tadeo Smyth Chloride [Moles/Vol] 104 mmol/L Normal 98-107 [facility] Comment on above: Performed By: #### A MY, CMP, LIPA ####[facility] Oxoetthjzv8564[address] [place], [place] [address]Dr. Tadeo Smyth CO2 [Moles/Vol] 26.6 mmol/L Normal 21.0-32.0 [facility] Comment on above: Performed By: #### A MY, CMP, LIPA ####[facility] Zpfmxnjbbg6890[address] [place], [place] [address]Dr. Tadeo Smyth Creatinine [Mass/Vol] 0.97 mg/dL Normal 0.55-1.02 [facility] Comment on above: Performed By: #### A MY, CMP, LIPA ####[facility] Xdtzbdkcdu97[address] [place], [place] [address]Dr. Tadeo Smyth EGFR-AF ERITREAN >60 Normal >=60 [facility] Comment on above: Performed By: #### A MY, CMP, LIPA ####[facility] Wswelnmzkw4[address] [place], [place] [address]Dr. Tadeo Smyth EGFR-NON AF ERITREAN 60 mL/min/1.73m2 Normal >=60 [facility] Comment on above: Performed By: #### A MY, CMP, LIPA ####[facility] Jubnfmihfc[address] [place] [address]Dr. Tadeo Smyth Globulin (S) [Mass/Vol] 3.7 g/dL Normal [facility] Comment on above: Performed By: #### A MY, CMP, LIPA ####[facility] Tgrjphjldn9146 [place] [address]Dr. Tadeo Smyth Glucose [Mass/Vol] 109 mg/dL Critically high 74-[address] [facility] Comment on above: Performed By: #### A MY, CMP, LIPA ####[facility] Pcircelsxq3571 [place] [address]Dr. Tadeo Smyth Potassium [Moles/Vol] 3.8 mmol/L Normal 3.5-5.1 [facility] Comment on above: Performed By: #### A MY, CMP, LIPA ####[facility] Hwratwacoq29[address] [place] [address]Dr. Tadeo Smyth Protein [Mass/Vol] 7.3 g/dL Normal 6.4-8.2 [facility] Comment on above: Performed By: #### A MY, CMP, LIPA ####[facility] Yofbnjncbp7682 [place] [address]Dr. Tadeo Smyth Sodium [Moles/Vol] 140 mmol/L Normal 136-145 [facility] Comment on above: Performed By: #### A MY, CMP, LIPA ####[facility] [address]flqfpwca[address] [place] [id number]. Tadeo Smyth Urea nitrogen [Mass/Vol] 21.0 mg/dL Critically high 7.0-18.0 [facility] Comment on above: Performed By: #### A MY, CMP, LIPA ####[facility] Qgtnfpqyae[address] [place] [address]Dr. Tadeo Smyth Urea nitrogen/Creatinine [Mass ratio] 21.6 mg/mg Normal [facility] Comment on above: Performed By: #### A MY, CMP, LIPA ####[facility] Mmqqcnkhzv[address] [place] [address]Dr. Tadeo Smyth URINE MICROSCOPIC ONLYon BACTERIA NONE SEEN Normal NONE SEEN [facility] Comment on above: Performed By: #### Matthew FRANCISCO UMICRO ####[facility] Xlrdgyvyyl26[address] [place] [address]Dr. Tadeo Smyth Bacteria identified Cx Nom (U) NOT INDICATED Normal [facility] Comment on above: Performed By: #### Matthew FRANCISCO UMICRO ####[facility] Nnhgzyvzfy0996 [place] [address]Dr. Tadeo Smyth CAST NONE SEEN Normal NONE SEEN [facility] Comment on above: Performed By: #### RANDI MERCHANTICRO ####[facility] Kqesdwwebv[address] [place], [place] [address]Dr. Tadeo Smyth Crystals LM Nom (Urine sed) NONE SEEN Normal NONE SEEN [facility] Comment on above: Performed By: #### RANDI MERCHANTICRO ####[facility] Retxosttds[address] [place], [place] [address]Dr. Tadeo Smyth Epithelial cells LM Ql (Urine sed) FEW Abnormal NONE SEEN /RARE [facility] Comment on above: Performed By: #### Matthew FRANCISCO UMICRO ####[facility] Sskbygxdty87[address] [place], [place] [address]Dr. Tadeo Smyth MUCOUS NONE SEEN Normal NONE SEEN [facility] Comment on above: Performed By: #### SANDRO MERCHANTRO ####[facility] Ekdottedxw5809[address] [place], [place] [address]Dr. Tadeo Smyth RBC 0-2 Normal 0-2 [facility] Comment on above: Performed By: #### Matthew FRANCISCO UMICRO ####[facility] Szzpxcjcpb33[address] [place], [place] [address]Dr. Tadeo Smyth WBC NONE SEEN Normal NONE SEEN [facility] Comment on above: Performed By: #### Matthew FRANCISCO UMICRO ####[facility] Rskaygksdc[address] [place], [place] [address]Dr. Tadeo Smyth MICRO OTHER TESTSOrdered By: Guillermo Rocha on 04-29-2022 Fecal WBC Lactoferrin Negative (04/29/22 8:00 AM) Normal Negative [facility] Man Sero CULTURE URINEon 03-31-2022 CULTURE URINE Normal [facility] Comment on above: Performed By: #### U RCX ####[facility] Fnlfhuyetn5890 [place] [address]Dr. Tadeo Haja CBC AUTO DIFFon 03-30-2022 BASO # 0.0 103/ul Normal 0.0-0.1 [facility] Comment on above: Performed By: #### C BC ####[facility] Ehhwcujjfx[address] [place], [place] [address]Dr. Tadeo Smyth Basophils/100 WBC (Bld) 0.4 % Normal 0.2-2.0 [facility] Comment on above: Performed By: #### C BC ####[facility] Ukgmyylykt9933[address] [place], [place] [address]Dr. Tadeo Smyth EO # 0.3 103/ul Normal 0.0-0.7 [facility] Comment on above: Performed By: #### C BC ####[facility] Gawbhvdofm[address] [place], [place] [address]Dr. Margotnicole Smyth Eosinophils/100 WBC (Bld) 5.1 % Normal 0.9-7.0 [facility] Comment on above: Performed By: #### C BC ####[facility] Unxxzjxjik217[address] [place], [place] [address]Dr. Tadeo Haja Erythrocyte distribution width (RBC) [Ratio] 12.8 % Normal 11.0-15.0 [facility] Comment on above: Performed By: #### C BC ####[facility] Akgbmelwfg3587[address] [place], [place] [address]Dr. Margotnicole Smyth Hematocrit (Bld) [Volume fraction] 36.4 % Normal 36.0-48.0 [facility] Comment on above: Performed By: #### C BC ####[facility] Pabuiwyull[address] [place], [place] [address]Dr. Tadeo Haja Hemoglobin (Bld) [Mass/Vol] 12.0 g/dL Normal 12.0-16.0 [facility] Comment on above: Performed By: #### C BC ####[facility] Suowosyjqp1841 [place] [address]DrNeo Smyth IG # 0.02 10e3/ul Normal 0.00-0.03 [facility] Comment on above: Performed By: #### C BC ####[facility] Kmobjcxkxz0591 [place] [address]DrNeo Smyth IG % 0.4 % Normal 0.0-0.5 [facility] Comment on above: Performed By: #### C BC ####[facility] Berezisehh84[address] [place], [place] [address]DrNeo Smyth LYMPH # 1.4 103/ul Normal 1.2-3.8 [facility] Comment on above: Performed By: #### C BC ####[facility] Ljvdhrskoy[address] [place], [place] [address]DrNeo Smyth Lymphocytes/100 WBC (Bld) 25.5 % Normal 20.5-60.0 [facility] Comment on above: Performed By: #### C BC ####[facility] Qonbnynnwz1897[address] [place], [place] [address]DrNeo Smyth MANUAL DIFF REQ NO Normal [facility] Comment on above: Performed By: #### C BC ####[facility] Ouficmojit7[address] [place], [place] [address]DrNeo Smyth MCH (RBC) [Entitic mass] 29.1 pg Normal 26.7-34.0 [facility] Comment on above: Performed By: #### C BC ####[facility] Ssewvwuoag8[address] [place], [place] [address]DrNeo Smyth MCHC (RBC) [Mass/Vol] 33.0 g/dL Normal 29.9-35.2 [facility] Comment on above: Performed By: #### C BC ####[facility] Qkozvmegen2048 [place] [address]DrNeo Smyth MCV (RBC) [Entitic vol] 88.3 fL Normal 81.0-99.0 [facility] Comment on above: Performed By: #### C BC ####[facility] Hwpdhnwszd9773 [place] [address]Dr. Tadeo Smyth MONO # 0.4 103/ul Normal 0.3-0.8 [facility] Comment on above: Performed By: #### C BC ####[facility] Eqpmxobejp6193 [place] [address]Dr. Tadeo Smyth Monocytes/100 WBC (Bld) 7.1 % Normal 1.7-12.0 [facility] Comment on above: Performed By: #### C BC ####[facility] Miomyvswbb6068 [place] [address]Dr. Tadeo Smyth NEUT # 3.4 103/ul Normal 1.4-6.5 [facility] Comment on above: Performed By: #### C BC ####[facility] Vqvpksieds65[address] [place], [place] [address]Dr. Tadeo Smyth Neutrophils/100 WBC (Bld) 61.5 % Normal 43.0-75.0 [facility] Comment on above: Performed By: #### C BC ####[facility] Xkhjmnhmbp3916 [place] [address]Dr. Tadeo Smyth Platelet mean volume (Bld) [Entitic vol] 8.8 fL Critically low 9.5-13.5 [facility] Comment on above: Performed By: #### C BC ####[facility] Zlkufemzec2555 [place] [address]Dr. Tadeo Smyth PLT 324 103/ul Normal 150-450 [facility] Comment on above: Performed By: #### C BC ####[facility] Mqgpspahjm2050 [place] [id number]. Tadeo Smyth RBC 4.12 106/ul Critically low 4.20-5.40 [facility] Comment on above: Performed By: #### C BC ####[facility] Sxwbldxjxe5495 [place] [address]Dr. Tadeo Smyth WBC 5.5 103/ul Normal 4.0-11.0 [facility] Comment on above: Performed By: #### C BC ####[facility] Hpuwggkjna0766 [place] [address]Dr. Tadeo Smyth PROF 14(COMP METB)on 022 Albumin [Mass/Vol] 3.1 g/dL Critically low 3.4-5.0 [facility] Comment on above: Performed By: #### C MP ####[facility] Qwtccmrmwd3566 [place] [address]Dr. Tadeo Smyth Albumin/Globulin [Mass ratio] 0.9 {ratio} Normal [facility] Comment on above: Performed By: #### C MP ####[facility] Ymbgxpdfew52[address] [place], [place] [address]Dr. Tadeo Smyth ALP [Catalytic activity/Vol] 119 U/L Critically high 46-116 [facility] Comment on above: Performed By: #### C MP ####[facility] Ndepgmfilm0[address] [place], [place] [address]Dr. Tadeo Smyth ALT [Catalytic activity/Vol] 17 U/L Normal 14-59 [facility] Comment on above: Performed By: #### C MP ####[facility] Jsvltisafa[address] [place], [place] [address]Dr. Tadeo Smyth Anion gap [Moles/Vol] 12.0 mmol/L Normal [facility] Comment on above: Performed By: #### C MP ####[facility] Uritptzbvv[address] [place], [place] [address]Dr. Tadeo Smyth AST [Catalytic activity/Vol] 16 U/L Normal 15-37 [facility] Comment on above: Performed By: #### C MP ####[facility] Rnkmaphhmp7118[address] [place], [place] [address]Dr. Tadeo Smyth Bilirubin [Mass/Vol] 0.4 mg/dL Normal 0.2-1.0 [facility] Comment on above: Performed By: #### C MP ####[facility] Yiwkgndrmc132[address] [place], [place] [address]Dr. Tadeo Smyth Calcium [Mass/Vol] 8.9 mg/dL Normal 8.5-10.1 [facility] Comment on above: Performed By: #### C MP ####[facility] Elhuzluond7182 [place] [address]Dr. Tadeo Smyth Chloride [Moles/Vol] 107 mmol/L Normal 98-107 [facility] Comment on above: Performed By: #### C MP ####[facility] Ljqcgdcjsy2576 [place] [address]Dr. Tadeo Smyth CO2 [Moles/Vol] 26.9 mmol/L Normal 21.0-32.0 [facility] Comment on above: Performed By: #### C MP ####[facility] Yvgsaihxon1439 [place] [address]Dr. Tadeo Smyth Creatinine [Mass/Vol] 0.82 mg/dL Normal 0.55-1.02 [facility] Comment on above: Performed By: #### C MP ####[facility] Iduultcdph5764 [place] [address]Dr. Tadeo Smyth EGFR-AF ERITREAN >60 Normal >=60 [facility] Comment on above: Performed By: #### C MP ####[facility] Pfzdsovfhy6580 [place] [address]Dr. Tadeo Smyth EGFR-NON AF ERITREAN >60 Normal >=60 [facility] Comment on above: Performed By: #### C MP ####[facility] Mxqicddvjo8166 [place] [address]Dr. Tadeo Smyth Globulin (S) [Mass/Vol] 3.5 g/dL Normal [facility] Comment on above: Performed By: #### C MP ####[facility] Bvamxqakrc0304 [place] [address]Dr. Tadeo Smyth Glucose [Mass/Vol] 104 mg/dL Normal 74-106 [facility] Comment on above: Performed By: #### C MP ####[facility] Unnemeszut5508[address] [place], [place] [address]Dr. Tadeo Smyth Potassium [Moles/Vol] 3.9 mmol/L Normal 3.5-5.1 [facility] Comment on above: Performed By: #### C MP ####[facility] Nxdrqsywfe3841 [place] [phone]. Tadeo Smyth Protein [Mass/Vol] 6.6 g/dL Normal 6.4-8.2 [facility] Comment on above: Performed By: #### C MP ####[facility] Xfqthdiadi7701 [place] [phone]. Tadeo Smyth Sodium [Moles/Vol] 142 mmol/L Normal 136-145 [facility] Comment on above: Performed By: #### C MP ####[facility] Rmemfrrrxf0504 [place] [address]Dr. Tadeo Smyth Urea nitrogen [Mass/Vol] 5.0 mg/dL Critically low 7.0-18.0 [facility] Comment on above: Performed By: #### C MP ####[facility] Qtdqlxvoaj5527[address] [place], [place] [address]Dr. Tadeo Smyth Urea nitrogen/Creatinine [Mass ratio] 6.1 mg/mg Normal [facility] Comment on above: Performed By: #### C MP ####[facility] Gfcmodcwdw886[address] [place], [place] [address]Dr. Tadeo Smyth CBC AUTO DIFFon 03-29-2022 BASO # 0.0 103/ul Normal 0.0-0.1 [facility] Comment on above: Performed By: #### C BC ####[facility] Ozjmqxrnln7792 [place] [address]Dr. Tadeo Smyth Basophils/100 WBC (Bld) 0.4 % Normal 0.2-2.0 [facility] Comment on above: Performed By: #### C BC ####[facility] Gcgdvbdfxq9075[address] [place], [place] [address]Dr. Tadeo Smyth EO # 0.2 103/ul Normal 0.0-0.7 [facility] Comment on above: Performed By: #### C BC ####[facility] Jxgffjagva077[address] [place], [place] [address]Dr. Tadeo Smyth Eosinophils/100 WBC (Bld) 4.3 % Normal 0.9-7.0 [facility] Comment on above: Performed By: #### C BC ####[facility] Pgmbfdlovz1449 [place] [address]Dr. Tadeo Smyth Erythrocyte distribution width (RBC) [Ratio] 12.9 % Normal 11.0-15.0 [facility] Comment on above: Performed By: #### C BC ####[facility] Vybjumkqwu6246 [place] [address]Dr. Tadeo Smyth Hematocrit (Bld) [Volume fraction] 33.8 % Critically low 36.0-48.0 [facility] Comment on above: Performed By: #### C BC ####[facility] Onxccgzapm7757[address] [place], [place] [address]Dr. Tadeo Smyth Hemoglobin (Bld) [Mass/Vol] 11.1 g/dL Critically low 12.0-16.0 [facility] Comment on above: Performed By: #### C BC ####[facility] Abgprqvylc38[address] [place], [place] [address]Dr. Tadeo Smyth IG # 0.01 10e3/ul Normal 0.00-0.03 [facility] Comment on above: Performed By: #### C BC ####[facility] Kotwuovugq5024[address] [place], [place] [address]Dr. Tadeo Smyth IG % 0.2 % Normal 0.0-0.5 [facility] Comment on above: Performed By: #### C BC ####[facility] Laelixnens8939[address] [place], [place] [address]Dr. Tadeo Smyth LYMPH # 1.5 103/ul Normal 1.2-3.8 [facility] Comment on above: Performed By: #### C BC ####[facility] Ixtqjxahqf6[address] [place], [place] [address]Dr. Tadeo Smyth Lymphocytes/100 WBC (Bld) 29.9 % Normal 20.5-60.0 [facility] Comment on above: Performed By: #### C BC ####[facility] Opbvtfzgfu5023[address] [place], [place] [address]Dr. Tadeo Smyth MANUAL DIFF REQ NO Normal [facility] Comment on above: Performed By: #### C BC ####[facility] Pvxkyqxarz1508 [place] [phone]. Tadeo Smyth MCH (RBC) [Entitic mass] 29.3 pg Normal 26.7-34.0 [facility] Comment on above: Performed By: #### C BC ####[facility] Kdwviyigrv9168 [place] [address]Dr. Tadeo Smyth MCHC (RBC) [Mass/Vol] 32.8 g/dL Normal 29.9-35.2 [facility] Comment on above: Performed By: #### C BC ####[facility] Vnnfzvzsfb6336 [place] [address]Dr. Tadeo Smyth MCV (RBC) [Entitic vol] 89.2 fL Normal 81.0-99.0 [facility] Comment on above: Performed By: #### C BC ####[facility] Pyhxdqyxdl628[address] [place], [place] [address]Dr. Tadeo Smyth MONO # 0.4 103/ul Normal 0.3-0.8 [facility] Comment on above: Performed By: #### C BC ####[facility] Vuwplqcyrb0428 [place] [address]Dr. Margotnicole Smyth Monocytes/100 WBC (Bld) 7.8 % Normal 1.7-12.0 [facility] Comment on above: Performed By: #### C BC ####[facility] Irxczsxhpv7201[address] [place], [place] [address]Dr. Tadeo Smyth NEUT # 2.8 103/ul Normal 1.4-6.5 [facility] Comment on above: Performed By: #### C BC ####[facility] Mousbieeiv[address] [place], [place] [address]Dr. Margotnicole Smyth Neutrophils/100 WBC (Bld) 57.4 % Normal 43.0-75.0 [facility] Comment on above: Performed By: #### C BC ####[facility] Gtsoavaruk[address] [place], [place] [address]Dr. Tadeo Haja Platelet mean volume (Bld) [Entitic vol] 8.9 fL Critically low 9.5-13.5 [facility] Comment on above: Performed By: #### C BC ####[facility] Cgidxtubbs9728 [place] [phone]. Tadeo Smyth PLT 314 103/ul Normal 150-450 [facility] Comment on above: Performed By: #### C BC ####[facility] Ifdyrhkrmb1456 [place] [phone]. Tadeo Smyth RBC 3.79 106/ul Critically low 4.20-5.40 [facility] Comment on above: Performed By: #### C BC ####[facility] Zepauqagkx4295 [place] [phone]. Tadeo Smyth WBC 4.9 103/ul Normal 4.0-11.0 [facility] Comment on above: Performed By: #### C BC ####[facility] Xbrqdnivho9235 [place] [address]Dr. Margotnicole Smyth PROF 14(COMP METB)on 022 Albumin [Mass/Vol] 2.8 g/dL Critically low 3.4-5.0 [facility] Comment on above: Performed By: #### C MP ####[facility] Bivtqowurq6077 [place] [phone]. Tadeo Smyth Albumin/Globulin [Mass ratio] 0.8 {ratio} [facility] Comment on above: Performed By: #### C MP ####[facility] Wejkgpxwkm5712 [place] [phone]. Tadeo Haja ALP [Catalytic activity/Vol] 117 U/L Critically high 46-116 [facility] Comment on above: Performed By: #### C MP ####[facility] Gdroeedfxg2540 [place] [phone]. Tadeo Haja ALT [Catalytic activity/Vol] 13 U/L Critically low 14-59 [facility] Comment on above: Performed By: #### C MP ####[facility] Fovleailyp0714 [place] [phone]. Tadeo Haja Anion gap [Moles/Vol] 8.7 mmol/L Normal [facility] Comment on above: Performed By: #### C MP ####[facility] Ztdtegwomk6960 [place] [phone]. Tadeo Smyth AST [Catalytic activity/Vol] 12 U/L Critically low 15-37 [facility] Comment on above: Performed By: #### C MP ####[facility] Mxhfyscwkb3803 [place] [phone]. Tadeo Smyth Bilirubin [Mass/Vol] 0.4 mg/dL Normal 0.2-1.0 [facility] Comment on above: Performed By: #### C MP ####[facility] Atxjwrtmnl13[address] [place], [place] [address]Dr. Tadeo Smyth Calcium [Mass/Vol] 8.5 mg/dL Normal 8.5-10.1 [facility] Comment on above: Performed By: #### C MP ####[facility] Udbzpqlyit8[address] [place], [place] [address]Dr. Tadeo Smyth Chloride [Moles/Vol] 108 mmol/L Critically high 98-107 [facility] Comment on above: Performed By: #### C MP ####[facility] Pndawtqdys354[address] [place], [place] [address]Dr. Tadeo Smyth CO2 [Moles/Vol] 28.0 mmol/L Normal 21.0-32.0 [facility] Comment on above: Performed By: #### C MP ####[facility] Bxdheyuxka60[address] [place], [place] [address]Dr. Tadeo Smyth Creatinine [Mass/Vol] 0.74 mg/dL Normal 0.55-1.02 [facility] Comment on above: Performed By: #### C MP ####[facility] Pxeslzjapw4853 [place] [phone]. Tadeo Smyth EGFR-AF ERITREAN >60 Normal >=60 [facility] Comment on above: Performed By: #### C MP ####[facility] Jycspchaiz12[address] [place], [place] [address]Dr. Tadeo Smyth EGFR-NON AF ERITREAN >60 Normal >=60 [facility] Comment on above: Performed By: #### C MP ####[facility] Csjocegzkd539[address] [place], [place] [address]Dr. Tadeo Smyth Globulin (S) [Mass/Vol] 3.4 g/dL Normal [facility] Comment on above: Performed By: #### C MP ####[facility] Frtcpizqek6198 [place] [address]Dr. Tadeo Smyth Glucose [Mass/Vol] 107 mg/dL Critically high 74-[address] [facility] Comment on above: Performed By: #### C MP ####[facility] Vtkbyfwbcf2792 [place] [address]Dr. Tadeo Smyth Potassium [Moles/Vol] 3.7 mmol/L Normal 3.5-5.1 [facility] Comment on above: Performed By: #### C MP ####[facility] Camuzcciec7863 [place] [address]Dr. Tadeo Smyth Protein [Mass/Vol] 6.2 g/dL Critically low 6.4-8.2 [facility] Comment on above: Performed By: #### C MP ####[facility] Gawomrmeyr4934[address] [place], [place] [address]Dr. Tadeo Smyth Sodium [Moles/Vol] 141 mmol/L Normal 136-145 [facility] Comment on above: Performed By: #### C MP ####[facility] Ugrfdxlmdt5385[address] [place], [place] [address]Dr. Tadeo Smyth Urea nitrogen [Mass/Vol] 7.0 mg/dL Normal 7.0-18.0 [facility] Comment on above: Performed By: #### C MP ####[facility] Rqcegqgqbc9633 [place] [address]Dr. Tadeo Smyth Urea nitrogen/Creatinine [Mass ratio] 9.5 mg/mg Normal [facility] Comment on above: Performed By: #### C MP ####[facility] Dazhczgfgp5343 [place] [address]Dr. Tadeo Haja XR KUB 1 VIEWon 03-29-2022 XR KUB 1 VIEW Normal [facility] CBC AUTO DIFFon 03-28-2022 BASO # 0.0 103/ul Normal 0.0-0.1 [facility] Comment on above: Performed By: #### C BC ####[facility] Udodhiogfr5309 [place] [phone]. Tadeo Smyth Basophils/100 WBC (Bld) 0.7 % Normal 0.2-2.0 [facility] Comment on above: Performed By: #### C BC ####[facility] Lzyimgksce[address] [place], [place] [address]Dr. Tadeo Smyth EO # 0.2 103/ul Normal 0.0-0.7 [facility] Comment on above: Performed By: #### C BC ####[facility] Cahtcozqyw88[address] [place], [place] [address]Dr. Tadeo Smyth Eosinophils/100 WBC (Bld) 3.3 % Normal 0.9-7.0 [facility] Comment on above: Performed By: #### C BC ####[facility] Rfecvuhwon8434[address] [place], [place] [address]Dr. Tadeo Smyth Erythrocyte distribution width (RBC) [Ratio] 13.2 % Normal 11.0-15.0 [facility] Comment on above: Performed By: #### C BC ####[facility] Tljdrnohig75[address] [place], [place] [address]Dr. Tadeo Smyth Hematocrit (Bld) [Volume fraction] 34.2 % Critically low 36.0-48.0 [facility] Comment on above: Performed By: #### C BC ####[facility] Eudnitahlc[address] [place], [place] [address]Dr. Tadeo Smyth Hemoglobin (Bld) [Mass/Vol] 10.8 g/dL Critically low 12.0-16.0 [facility] Comment on above: Performed By: #### C BC ####[facility] Kppotyctkm6930[address] [place], [place] [address]Dr. Tadeo Smyth IG # 0.01 10e3/ul Normal 0.00-0.03 [facility] Comment on above: Performed By: #### C BC ####[facility] Nmhkcavpkw[address] [place], [place] [address]Dr. Tadeo Smyth IG % 0.2 % Normal 0.0-0.5 [facility] Comment on above: Performed By: #### C BC ####[facility] Wlyxaxsanr3948 [place] [phone]. Tadeo Haja LYMPH # 1.3 103/ul Normal 1.2-3.8 [facility] Comment on above: Performed By: #### C BC ####[facility] Hdeesvaexa2289 [place] [phone]. Tadeo Smyth Lymphocytes/100 WBC (Bld) 28.4 % Normal 20.5-60.0 [facility] Comment on above: Performed By: #### C BC ####[facility] Ixzoqbztum[address] [place], [place] [address]Dr. Tadeo Smyth MANUAL DIFF REQ NO Normal [facility] Comment on above: Performed By: #### C BC ####[facility] Avjgrulnml14[address] [place], [place] [address]Dr. Tadeo Smyth MCH (RBC) [Entitic mass] 28.3 pg Normal 26.7-34.0 [facility] Comment on above: Performed By: #### C BC ####[facility] Sixwsmdzry9[address] [place], [place] [address]Dr. Margotnicole Smyth MCHC (RBC) [Mass/Vol] 31.6 g/dL Normal 29.9-35.2 [facility] Comment on above: Performed By: #### C BC ####[facility] Vxqlvcuxcc0038 [place] [phone]. Tadeo Smyth MCV (RBC) [Entitic vol] 89.5 fL Normal 81.0-99.0 [facility] Comment on above: Performed By: #### C BC ####[facility] Kxceqoqqyv9645 [place] [phone]. Tadeo Smyth MONO # 0.3 103/ul Normal 0.3-0.8 [facility] Comment on above: Performed By: #### C BC ####[facility] Lmsdcklwff4942 [place] [phone]. Tadeo Smyth Monocytes/100 WBC (Bld) 5.5 % Normal 1.7-12.0 [facility] Comment on above: Performed By: #### C BC ####[facility] Nntessuhyh8435 [place] [address]Dr. Tadeo Smyth NEUT # 2.8 103/ul Normal 1.4-6.5 [facility] Comment on above: Performed By: #### C BC ####[facility] Ecsecudmes6521 [place] [phone]. Tadeo Smyth Neutrophils/100 WBC (Bld) 61.9 % Normal 43.0-75.0 [facility] Comment on above: Performed By: #### C BC ####[facility] Fpbpsfcipd05[address] [place] [phone]. Tadeo Haja Platelet mean volume (Bld) [Entitic vol] 9.1 fL Critically low 9.5-13.5 [facility] Comment on above: Performed By: #### C BC ####[facility] Fxciyevmzi[address] [place] [address]Dr. Tadeo Smyth PLT 327 103/ul Normal 150-450 [facility] Comment on above: Performed By: #### C BC ####[facility] Eggsbwomvl6[address] [place] [phone]. Tadeo Haja RBC 3.82 106/ul Critically low 4.20-5.40 [facility] Comment on above: Performed By: #### C BC ####[facility] Zbgduwrvod14[address] [place] [phone]. Tadeo Smyth WBC 4.5 103/ul Normal 4.0-11.0 [facility] Comment on above: Performed By: #### C BC ####[facility] Gnongfgrtz4344 [place] [phone] Smyth POINT OF CARE GLUCOSEon 03-06 Glucose [Mass/Vol] 84 mg/dL Normal 74-106 [facility] Comment on above: Performed By: #### P OCGLUC ####[facility] Etaevnohaj24[address] [place] [address]DrNeo Smyth PROF 14(COMP METB)on 022 Albumin [Mass/Vol] 2.9 g/dL Critically low 3.4-5.0 [facility] Comment on above: Performed By: #### C MP ####[facility] Brlwxhkztl8[address] [place] [address]Dr. Tadeo Haja Albumin/Globulin [Mass ratio] 0.9 {ratio} Normal [facility] Comment on above: Performed By: #### C MP ####[facility] Tbscjgetrn5538 [place] [address]Dr. Tadeo Haja ALP [Catalytic activity/Vol] 119 U/L Critically high 46-116 [facility] Comment on above: Performed By: #### C MP ####[facility] Vbopiuvubj[address] [place], [place] [address]Dr. Tadeo Haja ALT [Catalytic activity/Vol] 15 U/L Normal 14-59 [facility] Comment on above: Performed By: #### C MP ####[facility] Jyxrqlzgzm18[address] [place], [place] [address]Dr. Tadeo Smyth Anion gap [Moles/Vol] 7.9 mmol/L Normal [facility] Comment on above: Performed By: #### C MP ####[facility] Ozbxgjkrka[address] [place], [place] [address]Dr. Tadeo Haja AST [Catalytic activity/Vol] 11 U/L Critically low 15-37 [facility] Comment on above: Performed By: #### C MP ####[facility] Uohlnndeer256[address] [place], [place] [address]Dr. Tadeo Smyth Bilirubin [Mass/Vol] 0.4 mg/dL Normal 0.2-1.0 [facility] Comment on above: Performed By: #### C MP ####[facility] Uebnjtcqom65[address] [place], [place] [address]Dr. Tadeo Smyth Calcium [Mass/Vol] 8.7 mg/dL Normal 8.5-10.1 [facility] Comment on above: Performed By: #### C MP ####[facility] Nvthxauvjt39[address] [place], [place] [address]Dr. Tadeo Smyth Chloride [Moles/Vol] 109 mmol/L Critically high 98-107 [facility] Comment on above: Performed By: #### C MP ####[facility] Oscdljozjt26[address] [place] [address]Dr. Tadeo Smyth CO2 [Moles/Vol] 27.9 mmol/L Normal 21.0-32.0 [facility] Comment on above: Performed By: #### C MP ####[facility] Gyucnnjtvg38[address] [place] [address]Dr. Tadeo Smyth Creatinine [Mass/Vol] 0.75 mg/dL Normal 0.55-1.02 [facility] Comment on above: Performed By: #### C MP ####[facility] Ebldjtvdms2493 [place] [address]Dr. Tadeo Smyth EGFR-AF ERITREAN >60 Normal >=60 [facility] Comment on above: Performed By: #### C MP ####[facility] Plpymtrzsa5[address] [place] [address]Dr. Tadeo Smyth EGFR-NON AF ERITREAN >60 Normal >=60 [facility] Comment on above: Performed By: #### C MP ####[facility] Cxmasnodqt1255 [place] [address]Dr. Tadeo Smyth Globulin (S) [Mass/Vol] 3.3 g/dL Normal [facility] Comment on above: Performed By: #### C MP ####[facility] Nlutmegdln0559 [place] [address]Dr. Tadeo Smyth Glucose [Mass/Vol] 95 mg/dL Normal 74-106 [facility] Comment on above: Performed By: #### C MP ####[facility] Tmnoojwjaz95[address] [place] [address]Dr. Tadeo Smyth Potassium [Moles/Vol] 3.8 mmol/L Normal 3.5-5.1 [facility] Comment on above: Performed By: #### C MP ####[facility] Urbqnmzuhj[address]86 [place] [address]Dr. Tadeo Smyth Protein [Mass/Vol] 6.2 g/dL Critically low 6.4-8.2 [facility] Comment on above: Performed By: #### C MP ####[facility] Pgszaznasz7231 [place] [address]Dr. Tadeo Smyth Sodium [Moles/Vol] 141 mmol/L Normal 136-145 [facility] Comment on above: Performed By: #### C MP ####[facility] Bvdgmgwypk5814 [place] [address]Dr. Tadeo Smyth Urea nitrogen [Mass/Vol] 8.0 mg/dL Normal 7.0-18.0 [facility] Comment on above: Performed By: #### C MP ####[facility] Yqrydanosu4193 [place] [address]Dr. Tadeo Smyth Urea nitrogen/Creatinine [Mass ratio] 10.7 mg/mg Normal [facility] Comment on above: Performed By: #### C MP ####[facility] Umucyklanj[address] [place], [place] [address]Dr. Tadeo Smyth UA (CLEAN/CATCH) OIL AND GAS SUPERINTENDENT/MICRO I F IND.on 03-28-2022 Bilirubin Ql (U) Negative Normal NEGATIVE [facility] Comment on above: Performed By: #### U MARE ICRO ####[facility] Efwfuhnmfq30[address] [place] [address]Dr. Tadeo Smyth Clarity (U) SL CLOUDY Abnormal CLEAR [facility] Comment on above: Performed By: #### U ACSBLANE ICRO ####[facility] Xrtmrgwpve6815 [place] [address]Dr. Tadeo Smyth Color (U) LT. YELLOW Normal YELLOW [facility] Comment on above: Performed By: #### U ACSBLANE ICRO ####[facility] Riyhhmmvfz8518 [place] [address]Dr. Tadeo Smyth Glucose Ql (U) Negative Normal NEGATIVE [facility] Comment on above: Performed By: #### U ACSBLANE ICRO ####[facility] Vorlmdnwcw4519 [place] [address]Dr. Tadeo Smyth Hemoglobin Ql (U) TRACE-INTACT Abnormal NEGATIVE [facility] Comment on above: Performed By: #### U ACSBLANE UMICRO ####[facility] Atinoaazga9044 [place] [address]Dr. Tadeo Smyth Ketones Ql (U) TRACE Abnormal NEGATIVE [facility] Comment on above: Performed By: #### U MARE UMICRO ####[facility] Yfvzjfraij7051 [place] [address]Dr. Tadeo Smyth LEUKOCYTES Negative Normal NEGATIVE [facility] Comment on above: Performed By: #### U MARE UMICRO ####[facility] Ofqkwvgukc6882 [place] [address]Dr. Tadeo Smyth Nitrite Ql (U) Negative Normal NEGATIVE [facility] Comment on above: Performed By: #### U MARE ICRO ####[facility] Mnimnalvsz27[address] [place], [place] [address]Dr. Tadeo Smyth pH (U) 6.5 [pH] Normal 5-9 [facility] Comment on above: Performed By: #### U MARE ICRO ####[facility] Vcocnqjsil24[address] [place], [place] [address]Dr. Tadeo Smyth SPEC GRAVITY 1.015 Normal 1.005-<=1.0 25 [facility] Comment on above: Performed By: #### U MARE ICRO ####[facility] Xxhmlzrbbr[address] [place], [place] [address]Dr. Tadeo Smyth UA PROTEIN Negative Normal NEGATIVE/ TRACE [facility] Comment on above: Performed By: #### U MARE ICRO ####[facility] Xwjwnxvjtt27[address] [place], [place] [address]Dr. Tadeo Smyth UR MICRO IND INDICATED Normal [facility] Comment on above: Performed By: #### U MARE UMICRO ####[facility] Ztrudnsrsc20[address] [place], [place] [address]Dr. Tadeo Smyth Urobilinogen Qn (U) 0.2 {Benito'U}/dL Normal 0.2 - 1. 0 [facility] Comment on above: Performed By: #### U MARE UMICRO ####[facility] Pcwxltutlt72[address] [place], [place] [address]Dr. Tadeo Smyth URINE MICROSCOPIC ONLYon BACTERIA MODERATE Abnormal NONE SEEN [facility] Comment on above: Performed By: #### U ACSBLANE UMICRO ####[facility] Hkdkuoghyc8[address] [place] [address]Dr. Tadeo Smyth Bacteria identified Cx Nom (U) INDICATED Normal [facility] Comment on above: Performed By: #### U ACSBLANE UMICRO ####[facility] Hvkgtxtwov4072 [place] [address]Dr. Tadeo Smyth CAST NONE SEEN Normal NONE SEEN [facility] Comment on above: Performed By: #### U ACSBLANE UMICRO ####[facility] Hyquaackgm7472 [place] [address]Dr. Tadeo Smyth Crystals LM Nom (Urine sed) NONE SEEN Normal NONE SEEN [facility] Comment on above: Performed By: #### U ACSBLANE UMICRO ####[facility] Eusljiyuah2778 [place] [address]Dr. Tadeo Smyth Epithelial cells LM Ql (Urine sed) RARE Normal NONE SEEN /RARE [facility] Comment on above: Performed By: #### U ACSBLANE UMICRO ####[facility] Dgxknlrnre7015 [place] [address]Dr. Tadeo Smyth MUCOUS NONE SEEN Normal NONE SEEN [facility] Comment on above: Performed By: #### U ACSBLANE UMICRO ####[facility] Maqcoghjsr2708 [place] [address]Dr. Tadeo Smyth RBC NONE SEEN Abnormal 0-2 [facility] Comment on above: Performed By: #### U ACSBLANE UMICRO ####[facility] Qztnnvurxl1269 [place] [address]Dr. Tadeo Smyth WBC 2-5 Abnormal NONE SEEN [facility] Comment on above: Performed By: #### U ACSBLANE, UMICRO ####[facility] Hsaqezpctq5604 [place] [address]Dr. Tadeo Smyth XR ABD FLAT UP_PA Kasey 03-28 XR ABD FLAT UP_PA CH Normal [facility] CBC AUTO DIFFon 03-27-2022 BASO # 0.0 103/ul Normal 0.0-0.1 [facility] Comment on above: Performed By: #### C BC ####[facility] Fievipgphm[address] [place], [place] [address]Dr. Tadeo Smyth Basophils/100 WBC (Bld) 0.5 % Normal 0.2-2.0 [facility] Comment on above: Performed By: #### C BC ####[facility] Ytfqftuuhk[address] [place], [place] [address]Dr. Margotnicole Haja EO # 0.2 103/ul Normal 0.0-0.7 [facility] Comment on above: Performed By: #### C BC ####[facility] Vniauogmab65[address] [place], [place] [address]Dr. Margotnicole Haja Eosinophils/100 WBC (Bld) 3.2 % Normal 0.9-7.0 [facility] Comment on above: Performed By: #### C BC ####[facility] Ayizmwohyx235[address] [place], [place] [address]Dr. Margotnicole Smyth Erythrocyte distribution width (RBC) [Ratio] 13.1 % Normal 11.0-15.0 [facility] Comment on above: Performed By: #### C BC ####[facility] Hhhvrgzmds[address] [place], [place] [address]Dr. Margotnicole Smyth Hematocrit (Bld) [Volume fraction] 34.8 % Critically low 36.0-48.0 [facility] Comment on above: Performed By: #### C BC ####[facility] Bxyivhqkyv9[address] [place], [place] [address]Dr. Tadeo Smyth Hemoglobin (Bld) [Mass/Vol] 11.3 g/dL Critically low 12.0-16.0 [facility] Comment on above: Performed By: #### C BC ####[facility] Zmpbdvfkfg924[address] [place], [place] [address]Dr. Tadeo Smyth IG # 0.01 10e3/ul Normal 0.00-0.03 [facility] Comment on above: Performed By: #### C BC ####[facility] Anbvgejnwj8671 [place] [address]Dr. Margotnicole Smyth IG % 0.2 % Normal 0.0-0.5 [facility] Comment on above: Performed By: #### C BC ####[facility] Fkgasjfdrt3122 [place] [address]Dr. Tadeo Smyth LYMPH # 1.6 103/ul Normal 1.2-3.8 [facility] Comment on above: Performed By: #### C BC ####[facility] Nuwaysnshi[address] [place], [place] [address]Dr. Margotnicole Smyth Lymphocytes/100 WBC (Bld) 29.1 % Normal 20.5-60.0 [facility] Comment on above: Performed By: #### C BC ####[facility] Mkniwilfby3858 [place] [address]Dr. Tadeo Smyth MANUAL DIFF REQ NO Normal [facility] Comment on above: Performed By: #### C BC ####[facility] Hzoipfwuro8820 [place] [address]Dr. Tadeo Haja MCH (RBC) [Entitic mass] 29.1 pg Normal 26.7-34.0 [facility] Comment on above: Performed By: #### C BC ####[facility] Zietwdkghw6[address] [place], [place] [address]Dr. Tadeo Haja MCHC (RBC) [Mass/Vol] 32.5 g/dL Normal 29.9-35.2 [facility] Comment on above: Performed By: #### C BC ####[facility] Clfdjdtpiv1975[address] [place], [place] [address]Dr. Tadeo Smyth MCV (RBC) [Entitic vol] 89.7 fL Normal 81.0-99.0 [facility] Comment on above: Performed By: #### C BC ####[facility] Awxftlvziy7[address] [place], [place] [address]Dr. Tadeo Smyth MONO # 0.3 103/ul Normal 0.3-0.8 [facility] Comment on above: Performed By: #### C BC ####[facility] Fyrqnlqbvh178[address] [place], [place] [address]Dr. Tadeo Smyth Monocytes/100 WBC (Bld) 5.7 % Normal 1.7-12.0 [facility] Comment on above: Performed By: #### C BC ####[facility] Fwaztzljxa2927 [place] [address]Dr. Tadeo Smyth NEUT # 3.5 103/ul Normal 1.4-6.5 [facility] Comment on above: Performed By: #### C BC ####[facility] Zpyfvbyhqf7862 [place] [address]Dr. Tadeo Smyth Neutrophils/100 WBC (Bld) 61.3 % Normal 43.0-75.0 [facility] Comment on above: Performed By: #### C BC ####[facility] Dqhbnewbuf9557 [place] [address]Dr. Tadeo Smyth Platelet mean volume (Bld) [Entitic vol] 9.1 fL Critically low 9.5-13.5 [facility] Comment on above: Performed By: #### C BC ####[facility] Exyhmeqjpd1515 [place] [address]Dr. Tadeo Smyth PLT 355 103/ul Normal 150-450 [facility] Comment on above: Performed By: #### C BC ####[facility] Ulsdduxyso92[address] [place], [place] [address]Dr. Tadeo Smyth RBC 3.88 106/ul Critically low 4.20-5.40 [facility] Comment on above: Performed By: #### C BC ####[facility] Dprpueqvfx9397[address] [place], [place] [address]Dr. Tadeo Smyth WBC 5.6 103/ul Normal 4.0-11.0 [facility] Comment on above: Performed By: #### C BC ####[facility] Qkighrwzyk0911[address] [place], [place] [address]Dr. Tadeo Smyth CT ABD/PELV W CONon 03-27-20 CT ABD/PELV W CON Normal [facility] CT ABD/PELVIS WO CONon 03-27 CT ABD/PELVIS WO CON Normal [facility] Covid-19 PCR (CVDTBH)on 03-06 SARS-CoV-2 (COVID-19) RNA CHEN+probe Ql (Unsp spec) Not detected Normal NOT DETECTED [facility] Comment on above: Result Comment: When [...] for this test is supported by the [employer] of Health and Human Service's declaration that [...] longer be used). Performed By: #### [facility] ####[facility] Eebmbutcrd315[address] [place], [place] [address]Dr. Tadeo Smyth ER URINE PROFILEon Bilirubin Ql (U) Negative Normal NEGATIVE [facility] Comment on above: Performed By: #### E NOLAN, PREGU ####[facility] Wdoqeqxxzw9099[address] [place], [place] [address]Dr. Tadeo Smyth Clarity (U) CLEAR Normal CLEAR [facility] Comment on above: Performed By: #### E SARAH BETHR, PREGU ####[facility] Inrcvvdbgy358[address] [place], [place] [address]Dr. Tadeo Smyth Color (U) LT. YELLOW Normal YELLOW [facility] Comment on above: Performed By: #### E RUR, PREGU ####[facility] Qxiovwrnsk847[address] [place], [place] [address]Dr. Tadeo Smyth ERUAHD A micrscopic examina tion will be performed if indicated. Normal [facility] Comment on above: Performed By: #### E RUR, PREGU ####[facility] Vcanxpdgnf5120[address] [place], [place] [address]Dr. Tadeo Smyth Glucose Ql (U) Negative Normal NEGATIVE [facility] Comment on above: Performed By: #### E RUR, PREGU ####[facility] Iinoqfuafs3638[address] [place], [place] [address]Dr. Tadeo Smyth Hemoglobin Ql (U) SMALL Abnormal NEGATIVE [facility] Comment on above: Performed By: #### E RUR, PREGU ####[facility] Mwslpeunyh303[address] [place], [place] [address]Dr. Tadeo Smyth Ketones Ql (U) TRACE Abnormal NEGATIVE [facility] Comment on above: Performed By: #### E RUR, PREGU ####[facility] Uxomomgdxk3930[address] [place], [place] [address]Dr. Margotnicole Smyth LEUKOCYTES Negative Normal NEGATIVE [facility] Comment on above: Performed By: #### E RUR, PREGU ####[facility] Zfbnctqdea129[address] [place], [place] [address]Dr. Tadeo Smyth Nitrite Ql (U) Negative Normal NEGATIVE [facility] Comment on above: Performed By: #### E RUR, PREGU ####[facility] Jrqcmsjwex296[address] [place], [place] [address]Dr. Tadeo Smyth pH (U) 6.0 [pH] Normal 5-9 [facility] Comment on above: Performed By: #### E RUR, PREGU ####[facility] Oltwyjfpom5669[address] [place], [place] [address]Dr. Margotnicole Smyth SPEC GRAVITY >=1.030 Abnormal 1.005-<=1.0 25 [facility] Comment on above: Performed By: #### E RUR, PREGU ####[facility] Tpdnrouefa36[address] [place], [place] [address]Dr. Tadeo Smyth UA PROTEIN Negative Normal NEGATIVE/ TRACE [facility] Comment on above: Performed By: #### E RUR, PREGU ####[facility] Ejqirbrkyn772[address] [place], [place] [address]Dr. Tadeo Smyth UR MICRO IND NOT INDICATED Normal [facility] Comment on above: Performed By: #### E RUR, PREGU ####[facility] Mcqgyysjvm0699 [place] [address]Dr. Tadeo Smyth Urobilinogen Qn (U) 0.2 {Benito'U}/dL Normal 0.2 - 1. 0 [facility] Comment on above: Performed By: #### E RUR, PREGU ####[facility] Olmcbvbrfy6546 [place] [address]Dr. Tadeo Smyth LIPASEon 03-27-2022 Lipase [Catalytic activity/Vol] 126.0 U/L Normal 73.0-393.0 [facility] Comment on above: Performed By: #### L IPA, CMP ####[facility] Vrdeebmvkf952[address] [place], [place] [address]Dr. Tadeo Smyth URon 03-27-2022 , QUAL Negative Normal NEGATIVE [facility] Comment on above: Performed By: #### E RUR, PREGU ####[facility] Znrfbgbekt37[address] [place], [place] [address]Dr. Tadeo Smyth PROF 14(COMP METB)on 022 Albumin [Mass/Vol] 3.6 g/dL Normal 3.4-5.0 [facility] Comment on above: Performed By: #### L IPA, CMP ####[facility] Rkvvdbdkuo576[address] [place], [place] [address]Dr. Tadeo Smyth Albumin/Globulin [Mass ratio] 1.1 {ratio} Normal [facility] Comment on above: Performed By: #### L IPA, CMP ####[facility] Eufbyyxwig55[address] [place], [place] [address]Dr. Tadeo Smyth ALP [Catalytic activity/Vol] 139 U/L Critically high 46-116 [facility] Comment on above: Performed By: #### L IPA, CMP ####[facility] Qrigwuwoye85[address] [place], [place] [address]Dr. Tadeo Smyth ALT [Catalytic activity/Vol] 18 U/L Normal 14-59 [facility] Comment on above: Performed By: #### L IPA, CMP ####[facility] Brjmvwnloo4[address] [place], [place] [address]Dr. Tadeo Smyth Anion gap [Moles/Vol] 10.7 mmol/L Normal [facility] Comment on above: Performed By: #### L IPA, CMP ####[facility] Xcwjpdxbxw5263 [place] [address]Dr. Tadeo Smyth AST [Catalytic activity/Vol] 11 U/L Critically low 15-37 [facility] Comment on above: Performed By: #### L IPA, CMP ####[facility] Lmcpthcjpn3764 [place] [address]Dr. Tadeo Smyth Bilirubin [Mass/Vol] 0.2 mg/dL Normal 0.2-1.0 [facility] Comment on above: Performed By: #### L IPA, CMP ####[facility] Vzpxcvlsbr110[address] [place], [place] [address]Dr. Tadeo Smyth Calcium [Mass/Vol] 9.0 mg/dL Normal 8.5-10.1 [facility] Comment on above: Performed By: #### L IPA, CMP ####[facility] Gkqosodbbr11[address] [place], [place] [address]Dr. Tadeo Smyth Chloride [Moles/Vol] 106 mmol/L Normal 98-107 [facility] Comment on above: Performed By: #### L IPA, CMP ####[facility] Dlbpwlplqr266[address] [place], [place] [address]Dr. Tadeo Smyth CO2 [Moles/Vol] 26.9 mmol/L Normal 21.0-32.0 [facility] Comment on above: Performed By: #### L IPA, CMP ####[facility] Azilnpbvuc5434[address] [place], [place] [address]Dr. Tadeo Smyth Creatinine [Mass/Vol] 0.84 mg/dL Normal 0.55-1.02 [facility] Comment on above: Performed By: #### L IPA, CMP ####[facility] Wnkousbngh169[address] [place], [place] [address]Dr. Tadeo Smyth EGFR-AF ERITREAN >60 Normal >=60 [facility] Comment on above: Performed By: #### L IPA, CMP ####[facility] Qxfdgkcofx3159 [place] [address]Dr. Tadeo Smyth EGFR-NON AF ERITREAN >60 Normal >=60 [facility] Comment on above: Performed By: #### L IPA, CMP ####[facility] Uhrviyehba653[address] [place], [place] [address]Dr. Tadeo Smyth Globulin (S) [Mass/Vol] 3.4 g/dL Normal [facility] Comment on above: Performed By: #### L IPA, CMP ####[facility] Ccfdtzrunu8329[address] [place], [place] [address]Dr. Tadeo Smyth Glucose [Mass/Vol] 96 mg/dL Normal 74-106 [facility] Comment on above: Performed By: #### L IPA, CMP ####[facility] Unqhqkvahj169[address] [place], [place] [address]Dr. Tadeo Smyth Potassium [Moles/Vol] 3.6 mmol/L Normal 3.5-5.1 [facility] Comment on above: Performed By: #### L IPA, CMP ####[facility] Lglsduzlef2290[address] [place], [place] [address]Dr. Tadeo Smyth Protein [Mass/Vol] 7.0 g/dL Normal 6.4-8.2 [facility] Comment on above: Performed By: #### L IPA, CMP ####[facility] Eyprxofvgu485[address] [place], [place] [address]Dr. Tadeo Smyth Sodium [Moles/Vol] 140 mmol/L Normal 136-145 [facility] Comment on above: Performed By: #### L IPA, CMP ####[facility] Cyimozsunb12[address] [place], [place] [address]Dr. Tadeo Smyth Urea nitrogen [Mass/Vol] 23.0 mg/dL Critically high 7.0-18.0 [facility] Comment on above: Performed By: #### L IPA, CMP ####[facility] Scktmretce8930[address] [place], [place] [address]Dr. Tadeo Smyth Urea nitrogen/Creatinine [Mass ratio] 27.4 mg/mg Normal [facility] Comment on above: Performed By: #### L IPA, CMP ####[facility] Igjqyhizth33[address] [place] [address]Dr. Tadeo Smyth GROUP A STREP CULTUREon S. pyogenes Ag Ql (Unsp spec) Normal [facility] Comment on above: Performed By: #### G RASTCX, SSCRN ####[facility] Lvhfqchgzh[address] [place], [place] [address]Dr. Tadeo Smyth AMYLASEon 02-02-2022 Amylase [Catalytic activity/Vol] 37 U/L Normal 25-115 [facility] Comment on above: Performed By: #### C MP, VIJI, LIPA ####[facility] Mwbxqeicjq[address] [place], [place] [address]Dr. Tadeo Smyth CBC AUTO DIFFon 02-02-2022 BASO # 0.0 103/ul Normal 0.0-0.1 [facility] Comment on above: Performed By: #### C BC ####[facility] Svobudskua[address] [place], [place] [address]Dr. Margotnicole Smyth Basophils/100 WBC (Bld) 0.2 % Normal 0.2-2.0 [facility] Comment on above: Performed By: #### C BC ####[facility] Ybrkhnnmvw[address] [place], [place] [address]Dr. Tadeo Smyth EO # 0.0 103/ul Normal 0.0-0.7 [facility] Comment on above: Performed By: #### C BC ####[facility] Shtxiubecq[address] [place], [place] [address]Dr. Tadeo Haja Eosinophils/100 WBC (Bld) 0.2 % Critically low 0.9-7.0 [facility] Comment on above: Performed By: #### C BC ####[facility] Iydkwhnccy[address] [place], [place] [address]Dr. Tadeo Smyth Erythrocyte distribution width (RBC) [Ratio] 13.4 % Normal 11.0-15.0 [facility] Comment on above: Performed By: #### C BC ####[facility] Magofszsvz[address] [place], [place] [address]Dr. Tadeo Haja Hematocrit (Bld) [Volume fraction] 36.8 % Normal 36.0-48.0 [facility] Comment on above: Performed By: #### C BC ####[facility] [address]vqvp[address] [place] [address]DrNeo Tadeo Haja Hemoglobin (Bld) [Mass/Vol] 11.6 g/dL Critically low 12.0-16.0 [facility] Comment on above: Performed By: #### C BC ####[facility] Zp[address]xtin[address] [place] [address]DrNeo Frostnicole Haja IG # 0.08 10e3/ul Critically high 0.00-0.03 [facility] Comment on above: Performed By: #### C BC ####[facility] Ytgwbcarca[address] [place], [place] [address]DrNeo Smyth IG % 0.6 % Critically high 0.0-0.5 [facility] Comment on above: Performed By: #### C BC ####[facility] Bylmltsqww[address] [place], [place] [address]DrNeo Smyth LYMPH # 0.9 103/ul Critically low 1.2-3.8 [facility] Comment on above: Performed By: #### C BC ####[facility] Eqtzcjzhrc[address] [place], [place] [address]DrNeo Smyth Lymphocytes/100 WBC (Bld) 6.9 % Critically low 20.5-60.0 [facility] Comment on above: Performed By: #### C BC ####[facility] [address] [place], [place] [address]DrNeo Smyth MANUAL DIFF REQ NO Normal [facility] Comment on above: Performed By: #### C BC ####[facility] [address]arwcr[address] [place] [address]DrNeo Smyth MCH (RBC) [Entitic mass] 28.9 pg Normal 26.7-34.0 [facility] Comment on above: Performed By: #### C BC ####[facility] Mqcisqizhs6583 [place] [address]DrNeo Smyth MCHC (RBC) [Mass/Vol] 31.5 g/dL Normal 29.9-35.2 [facility] Comment on above: Performed By: #### C BC ####[facility] Gojtockdsv[address] [place] [address]DrNeo Smyth MCV (RBC) [Entitic vol] 91.8 fL Normal 81.0-99.0 [facility] Comment on above: Performed By: #### C BC ####[facility] Yxsubxgslh50[address] [place] [address]DrNeo Smyth MONO # 0.9 103/ul Critically high 0.3-0.8 [facility] Comment on above: Performed By: #### C BC ####[facility] Vydsrhrdjm3097 [place] [address]DrNeo Smyth Monocytes/100 WBC (Bld) 6.9 % Normal 1.7-12.0 [facility] Comment on above: Performed By: #### C BC ####[facility] Sl[address]zakib[address] [place], [place] [address]DrNeo Smyth NEUT # 11.6 103/ul Critically high 1.4-6.5 [facility] Comment on above: Performed By: #### C BC ####[facility] Ojwgix[address] [place], [place] [address]DrNeo Smyth Neutrophils/100 WBC (Bld) 85.2 % Critically high 43.0-75.0 [facility] Comment on above: Performed By: #### C BC ####[facility] Yodqilmcrs[address] [place], [place] [address]DrNeo Smyth Platelet mean volume (Bld) [Entitic vol] 8.9 fL Critically low 9.5-13.5 [facility] Comment on above: Performed By: #### C BC ####[facility] [address]tvzx[address] [place], [place] [address]DrNeo Smyth PLT 331 103/ul Normal 150-450 [facility] Comment on above: Performed By: #### C BC ####[facility] F[address]sebelht[address] [place] [id number] Smyth RBC 4.01 106/ul Critically low 4.20-5.40 [facility] Comment on above: Performed By: #### C BC ####[facility] Sch[address]yc[address] [place] [id number]. Tadeo Smyth WBC 13.7 103/ul Critically high 4.0-11.0 [facility] Comment on above: Performed By: #### C BC ####[facility] [address]rm[address]kkl65[address] [place] [id number]. Tadeo Smyth Covid-19 PCR (CVDTB)on 01-05 SARS-CoV-2 (COVID-19) RNA CHEN+probe Ql (Unsp spec) Not detected Normal NOT DETECTED [facility] Comment on above: Result Comment: When [...] for this test is supported by the [employer] of Health and Human Service's declaration that [...] be used). Performed By: #### C VDTBH ####[facility] Gaqpjyfziw[address] [place] [id number]. Tadeo Smyth LIPASEon 02-02-2022 Lipase [Catalytic activity/Vol] 33.0 U/L Critically low 73.0-393.0 [facility] Comment on above: Performed By: #### C VIJI GARCIA, LIPA ####[facility] Wlsekgcrfk9[address] [place] [id number]. Tadeo Smyth MONOon 02-02-2022 Monocytes (Bld) [#/Vol] Negative Normal NEGATIVE [facility] Comment on above: Performed By: #### M JESSICA ####[facility] Biz[address]red[address]xe[address] [place] [address]Dr. Tadeo Smyth PROF 14(COMP METB)on 022 Albumin [Mass/Vol] 3.1 g/dL Critically low 3.4-5.0 [facility] Comment on above: Performed By: #### C MP VIJI, LIPA ####[facility] [address] [place] [address]Dr. Tadeo Smyth Albumin/Globulin [Mass ratio] 0.9 {ratio} Normal [facility] Comment on above: Performed By: #### C JOSE VIJI, LIPA ####[facility] Xkjbeqcayl[address] [place], [place] [address]Dr. aTdeo Smyth ALP [Catalytic activity/Vol] 131 U/L Critically high 46-116 [facility] Comment on above: Performed By: #### C JOSE VIJI, LIPA ####[facility] Dusrfmytlo[address] [place], [place] [address]Dr. Tadeo Smyth ALT [Catalytic activity/Vol] 25 U/L Normal 14-59 [facility] Comment on above: Performed By: #### C JOSE VIJI, LIPA ####[facility] Evaatwecyy[address] [place], [place] [address]Dr. Tadeo Smyth Anion gap [Moles/Vol] 10.0 mmol/L Normal [facility] Comment on above: Performed By: #### C MP VIJI, LIPA ####[facility] Jwbjtiiclg[address] [place], [place] [address]Dr. Tadeo Smyth AST [Catalytic activity/Vol] 19 U/L Normal 15-37 [facility] Comment on above: Performed By: #### C JOSE VIJI, LIPA ####[facility] Jhhkqhhtju[address] [place], [place] [address]Dr. Tadeo Smyth Bilirubin [Mass/Vol] 0.6 mg/dL Normal 0.2-1.0 [facility] Comment on above: Performed By: #### C JOSE VIJI, LIPA ####[facility] [address]us[address]piqu[address] [place] [address]Dr. Tadeo Smyth Calcium [Mass/Vol] 8.2 mg/dL Critically low 8.5-10.1 [facility] Comment on above: Performed By: #### C MP, VIJI, LIPA ####[facility] Ilfuwbdmdw[address] [place], [place] [address]Dr. Tadeo Smyth Chloride [Moles/Vol] 106 mmol/L Normal 98-107 [facility] Comment on above: Performed By: #### C MP, VIJI, LIPA ####[facility] Oqpgqxvnih[address] [place], [place] [address]Dr. Tadeo Smyth CO2 [Moles/Vol] 25.5 mmol/L Normal 21.0-32.0 [facility] Comment on above: Performed By: #### C MP, VIJI, LIPA ####[facility] Ujufjtpqhl[address] [place], [place] [address]Dr. Tadeo Smyth Creatinine [Mass/Vol] 0.78 mg/dL Normal 0.55-1.02 [facility] Comment on above: Performed By: #### C MP, VIJI, LIPA ####[facility] Ermpnrxftb[address] [place], [place] [address]Dr. Tadeo Smyth EGFR-AF ERITREAN >60 Normal >=60 [facility] Comment on above: Performed By: #### C MP, VIJI, LIPA ####[facility] Yqpoalxuce[address] [place], [place] [address]Dr. Tadeo Smyth EGFR-NON AF ERITREAN >60 Normal >=60 [facility] Comment on above: Performed By: #### C MP, VIJI, LIPA ####[facility] Qmutjaefeh[address] [place], [place] [address]Dr. Tadeo Smyth Globulin (S) [Mass/Vol] 3.6 g/dL Normal [facility] Comment on above: Performed By: #### C MP, VIJI, LIPA ####[facility] Avabtiiibx[address] [place], [place] [address]Dr. Tadeo Smyth Glucose [Mass/Vol] 110 mg/dL Critically high 74-106 [facility] Comment on above: Performed By: #### C MP, VIJI, LIPA ####[facility] Bsl[address]ib[address]f54[address] [place] [address]Dr. Tadeo Smyth Potassium [Moles/Vol] 3.5 mmol/L Normal 3.5-5.1 [facility] Comment on above: Performed By: #### C MP, VIJI, LIPA ####[facility] Zeyeschsng[address] [place] [address]Dr. Tadeo Smyth Protein [Mass/Vol] 6.7 g/dL Normal 6.4-8.2 [facility] Comment on above: Performed By: #### C MP, VIJI, LIPA ####[facility] Nh[address]utz[address] [place] [address]Dr. Tadeo Smyth Sodium [Moles/Vol] 138 mmol/L Normal 136-145 [facility] Comment on above: Performed By: #### C MP, VIJI, LIPA ####[facility] Radskoiaon[address] [place], [place] [address]Dr. Tadeo Smyth Urea nitrogen [Mass/Vol] 11.0 mg/dL Normal 7.0-18.0 [facility] Comment on above: Performed By: #### C MP, VIJI, LIPA ####[facility] Iuvfltxczy[address] [place], [place] [address]Dr. Tadeo Smyth Urea nitrogen/Creatinine [Mass ratio] 14.1 mg/mg Normal [facility] Comment on above: Performed By: #### C MP, VIJI, LIPA ####[facility] Tflaonxbdq[address] [place], [place] [address]Dr. Tadeo Smyth STREPT SCREENon 02-02-2022 STREP SCREEN A Negative Normal NEGATIVE [facility] Comment on above: Performed By: #### G RASTCX, SSCRN ####[facility] Gkidwnsprt[address] [place], [place] [address]Dr. Tadeo Smyth BASIC METABOLIC PANELon 08-05 Calcium [Mass/Vol] 8.4 mg/dL Low 8.6-10.3 [facility] Comment on above: Order Comment: No: D o not add to previous draw Performed By: #### 3 948, 12918 #### [facility] [address] [place] [address], [place] Chloride [Moles/Vol] 108 mmol/L High 98-107 [facility] Comment on above: Order Comment: No: D o not add to previous draw Performed By: #### 3 992, 10891 #### [facility] [address] [place] [address], [place] CO2 [Moles/Vol] 26 mmol/L Normal 21-31 [facility] Comment on above: Order Comment: No: D o not add to previous draw Performed By: #### 3 131, 35455 #### [facility] [address] [place] [address], [place] Creatinine [Mass/Vol] 0.79 mg/dL Normal 0.60-1.20 [facility] Comment on above: Order Comment: No: D o not add to previous draw Performed By: #### 3 013, 14444 #### [facility] [address] [place] [address], [place] GFR/1.73 sq M predicted among blacks MDRD (S/P/Bld) [Vol rate/Area] mL/min/{1.73_m2} Normal >60 [facility] Comment on above: Order Comment: No: D o not add to previous draw Performed By: #### 3 729, 99671 #### [facility] [address] [place] [address], [place] GFR/1.73 sq M predicted among non-blacks MDRD (S/P/Bld) [Vol rate/Area] mL/min/{1.73_m2} Normal >60 [facility] Comment on above: Order Comment: No: D o not add to previous draw Performed By: #### 3 246, 15531 #### [facility] [address] [place] [address], [place] Glucose [Mass/Vol] 98 mg/dL Normal 70-100 [facility] Comment on above: Order Comment: No: D o not add to previous draw Performed By: #### 3 588, 74550 #### [facility] [address] [place] [address], [place] Potassium [Moles/Vol] 3.5 mmol/L Normal 3.5-5.1 [facility] Comment on above: Order Comment: No: D o not add to previous draw Performed By: #### 3 867, 48839 #### [facility] [address] [place] [address], [place] Sodium [Moles/Vol] 139 mmol/L Normal 136-145 [facility] Comment on above: Order Comment: No: D o not add to previous draw Performed By: #### 3 091, 65705 #### [facility] [address] [place] [address], [place] Urea nitrogen [Mass/Vol] 11 mg/dL Normal 7-25 [facility] Comment on above: Order Comment: No: D o not add to previous draw Performed By: #### 3 320, 61732 #### [facility] [address] [place] [address], [place] BLOOD STOOL GUAIACon 019 BLD STOOL GUAIAC Negative Normal NEGATIVE [facility] Comment on above: Order Comment: No: D o not add to previous draw Performed By: #### 3 436, 53516 #### [facility] [address] [place] [address], [place] MAGNESIUM BLOODon 08-16-2019 Magnesium [Mass/Vol] 2.0 mg/dL Normal 1.9-2.7 [facility] Comment on above: Order Comment: No: D o not add to previous draw Performed By: #### 3 648, 82353 #### [facility] [address] [place] [address], [place] *URINE CULTUREon 08-15-2019 Bacteria identified Cx Nom (U) Clinical Report: (D) Specimen/Source: URINE/MIDSTREAM Collected: 08/15/2019 20:40 Status: Final Last Updated: 08/17/2019 08:05 ISO (Final) Escherichia coli >100,000 Cfu/Ml ISOLATE: Escherichia coli RHONDA (mcg/ml) AMP./SULBAC (AMS) 16/8 Intermediate AMPICILLIN (AM) >16 Resistant AZTREONAM (AZM) <=1 Susceptible CEFAZOLIN (CZ) 2 Susceptible CEFTRIAXONE (SOFTWARE PROJECT MANAGER) <=0.5 Susceptible CIPROFLOXACIN (CIP) >2 Resistant ESBL (-/+) (ESBL) Negative GENTAMICIN (GM) <=1 Susceptible NITROFURANTOIN (FT) <=16 Susceptible PIP/TAZO (TZP) 4/4 Susceptible TOBRAMYCIN (TOB) 1 Susceptible TRIMETH/SULFA (SXT) >2/38 Resistant Normal [facility] Comment on above: Performed By: #### 3 6901, 12264 #### [facility] [address] BASIC METABOLIC PANELon 12 Calcium [Mass/Vol] 8.8 mg/dL Normal 8.6-10.3 [facility] Comment on above: Order Comment: No: D o not add to previous draw Performed By: #### 0 0071, 36675, 28717 #### [facility] [address] Chloride [Moles/Vol] 107 mmol/L Normal 98-107 [facility] Comment on above: Order Comment: No: D o not add to previous draw Performed By: #### 0 0071, 15247, 68399 #### [facility] [address] [place] [address], [facility] CO2 [Moles/Vol] 27 mmol/L Normal 21-31 [facility] Comment on above: Order Comment: No: D o not add to previous draw Performed By: #### 0 0071, 51127, 43291 #### [facility] [address] [place] [address], [place] Creatinine [Mass/Vol] 0.99 mg/dL Normal 0.60-1.20 [facility] Comment on above: Order Comment: No: D o not add to previous draw Performed By: #### 0 0071, 51120, 71198 #### [facility] [address] [place] [address], [place] GFR/1.73 sq M predicted among blacks MDRD (S/P/Bld) [Vol rate/Area] mL/min/{1.73_m2} Normal >60 [facility] Comment on above: Order Comment: No: D o not add to previous draw Performed By: #### 0 0071, 51809, 20956 #### [facility] [address] [place] [address], [place] GFR/1.73 sq M predicted among non-blacks MDRD (S/P/Bld) [Vol rate/Area] 59 ml/min/1.73sq m Abnormal >60 [facility] Comment on above: Order Comment: No: D o not add to previous draw Performed By: #### 0 0071, 21855, 22055 #### [facility] [address] [place] [address], [place] Glucose [Mass/Vol] 100 mg/dL Normal 70-100 [facility] Comment on above: Order Comment: No: D o not add to previous draw Performed By: #### 0 0071, 06872, 19997 #### [facility] [address] [place] [address], [place] Potassium [Moles/Vol] 3.6 mmol/L Normal 3.5-5.1 [facility] Comment on above: Order Comment: No: D o not add to previous draw Performed By: #### 0 0071, 61425, 22105 #### [facility] [address] [place] [address], [place] Sodium [Moles/Vol] 140 mmol/L Normal 136-145 [facility] Comment on above: Order Comment: No: D o not add to previous draw Performed By: #### 0 0071, 70239, 41405 #### [facility] [address] [place] [address], [facility] Urea nitrogen [Mass/Vol] 9 mg/dL Normal 7-25 [facility] Comment on above: Order Comment: No: D o not add to previous draw Performed By: #### 0 0071, 51441, 79889 #### [facility] [address] [place] [address], [facility] LACTATE BLOODon 08-15-2019 Lactate [Moles/Vol] 0.8 mmol/L Normal 0.5-2.2 [facility] Comment on above: Order Comment: Yes: Add to Previous draw if able Performed By: #### 1 0054 #### [facility] [address] [facility] [address] LMWH HEPARIN ASSAYon 019 LOW MOLECULAR WEIGHT HEPARIN 0.32 IU/mL Low 0.60-1.20 [facility] Comment on above: Order Comment: (draw [...] UFH and LMWH. Performed By: #### 3 0761, 70594 #### [facility] [address] [place] [address], [facility] MAGNESIUM BLOODon 08-15-2019 Magnesium [Mass/Vol] 1.7 mg/dL Low 1.9-2.7 [facility] Comment on above: Order Comment: No: D o not add to previous draw Performed By: #### 0 0071, 31547, 25121 #### [facility] [address] [place] [address], [facility] PHOSPHORUS BLOODon 9 Phosphate [Mass/Vol] 4.1 mg/dL Normal 2.5-5.0 [facility] Comment on above: Order Comment: No: D o not add to previous draw Performed By: #### 0 0071, 15006, 09846 #### [facility] [address] [place] [address], [facility] UGI WITH SMALL BOWELon 08-15 UGI WITH SMALL BOWEL [facility] Department of Radiology [address] [place], [place] [id number] Patient Name: CONSTANTINO CARDOSO : 1970 Sex: F Age: Race: White Pt. Location: [id number] Patient Status: O Ordered Date: 08/15/2019 10:45:00 [...] ischemia. Electronically signed by:Orestes Condon. Transcribed by: [email or web address], User Resident: Electronically Signed by: ORESTES CONDON @ 08/15/2019 04:13 PM Normal [facility] Comment on above: Order Comment: R/O O bstruction URINALYSIS REFLEXon 08-15-20 19 Appearance (U) SL CLOUDY Abnormal CLEAR [facility] Comment on above: Order Comment: No: D o not add to previous drawCriteria for reflexing a culture was met. Urine Culture and sensitivitywill be performed. Performed By: #### 3 7771, 30193 #### [facility] [address] [facility] [place] [address], [facility] Bilirubin [Mass/Vol] Negative Normal NEGATIVE [facility] Comment on above: Order Comment: No: D o not add to previous drawCriteria for reflexing a culture was met. Urine Culture and sensitivitywill be performed. Performed By: #### 3 3651, 96678 #### [facility] [address] [place] [address], [facility] BLOOD SMALL Abnormal NEGATIVE [facility] Comment on above: Order Comment: No: D o not add to previous drawCriteria for reflexing a culture was met. Urine Culture and sensitivitywill be performed. Performed By: #### 3 6901, 69841 #### [facility] [address] [place] [address], [place] Color (U) YELLOW Normal YELLOW [facility] Comment on above: Order Comment: No: D o not add to previous drawCriteria for reflexing a culture was met. Urine Culture and sensitivitywill be performed. Performed By: #### 3 6901, 59971 #### [facility] [address] [place] [address], [facility] EPIS OCC Normal FEW,OCC,NON E SEEN [facility] Comment on above: Order Comment: No: D o not add to previous drawCriteria for reflexing a culture was met. Urine Culture and sensitivitywill be performed. Performed By: #### 3 860, 86317 #### [facility] [address] [place] [address], [place] Glucose [Mass/Vol] Negative Normal NEGATIVE [facility] Comment on above: Order Comment: No: D o not add to previous drawCriteria for reflexing a culture was met. Urine Culture and sensitivitywill be performed. Performed By: #### 3 7651, 43152 #### [facility] [address] [place] [address], [place] HYALINE CASTS 6-10 Abnormal NONE SEEN [facility] Comment on above: Order Comment: No: D o not add to previous drawCriteria for reflexing a culture was met. Urine Culture and sensitivitywill be performed. Performed By: #### 3 6901, 49898 #### [facility] [address] [place] [address], [place] KETONE Negative Normal NEGATIVE [facility] Comment on above: Order Comment: No: D o not add to previous drawCriteria for reflexing a culture was met. Urine Culture and sensitivitywill be performed. Performed By: #### 3 690, 65445 #### [facility] [address] [place] [address], [facility] LEUK JONN MODERATE Abnormal NEGATIVE [facility] Comment on above: Order Comment: No: D o not add to previous drawCriteria for reflexing a culture was met. Urine Culture and sensitivitywill be performed. Performed By: #### 3 690, 83424 #### [facility] [address] [place] [address], [place] MUCUS THREADS FEW Abnormal NONE SEEN [facility] Comment on above: Order Comment: No: D o not add to previous drawCriteria for reflexing a culture was met. Urine Culture and sensitivitywill be performed. Performed By: #### 3 690, 32358 #### [facility] [address] [place] [address], [facility] Nitrite Ql (U) Negative Normal NEGATIVE [facility] Comment on above: Order Comment: No: D o not add to previous drawCriteria for reflexing a culture was met. Urine Culture and sensitivitywill be performed. Performed By: #### 3 690, 04319 #### [facility] [address] [place] [address], [facility] pH (Bld) 5.0 Normal 5.0-8.0 [facility] Comment on above: Order Comment: No: D o not add to previous drawCriteria for reflexing a culture was met. Urine Culture and sensitivitywill be performed. Performed By: #### 3 690, 17729 #### [facility] [address] [place] [address], [facility] Protein (U) [Mass/Vol] Negative Normal NEGATIVE [facility] Comment on above: Order Comment: No: D o not add to previous drawCriteria for reflexing a culture was met. Urine Culture and sensitivitywill be performed. Performed By: #### 3 634, 39403 #### [facility] [address] [place] [address], [facility] RBC (U) [#/Vol] 6-10 Abnormal NONE SEEN [facility] Comment on above: Order Comment: No: D o not add to previous drawCriteria for reflexing a culture was met. Urine Culture and sensitivitywill be performed. Performed By: #### 3 6901, 99379 #### [facility] [address] [facility] [place] [address], [facility] SPEC GRAV 1.025 High 1.015-1.020 [facility] Comment on above: Order Comment: No: D o not add to previous drawCriteria for reflexing a culture was met. Urine Culture and sensitivitywill be performed. Performed By: #### 3 6901, 34523 #### [facility] [address] [facility] [place] [address], [facility] WBC UA 51-100 Abnormal NONE SEEN [facility] Comment on above: Order Comment: No: D o not add to previous drawCriteria for reflexing a culture was met. Urine Culture and sensitivitywill be performed. Performed By: #### 3 6901, 33192 #### [facility] 3000 [facility]. [address] CBC COMPLETE BLOOD COUNTon 1 10-15-2018 Erythrocyte distribution width (RBC) [Ratio] 12.7 % Normal 11.5-15.0 [facility] Comment on above: Order Comment: No: D o not add to previous draw Performed By: #### 5 0608 #### [facility] [address] [facility] [place] [place]. [address] Hematocrit (Bld) [Volume fraction] 31.2 % Low 36.0-45.0 [facility] Comment on above: Order Comment: No: D o not add to previous draw Performed By: #### 5 [id number] #### [facility] [address] [place] [address], [facility] Hemoglobin (Bld) [Mass/Vol] 9.8 g/dL Low 12.0-15.0 [facility] Comment on above: Order Comment: No: D o not add to previous draw Performed By: #### 5 0608 #### [facility] [address] MCH (RBC) [Entitic mass] 29.1 pg Normal 27.0-33.0 [facility] Comment on above: Order Comment: No: D o not add to previous draw Performed By: #### 5 0608 #### [facility] [address] MCHC (RBC) [Mass/Vol] 31.4 g/dL Low 32.0-35.0 [facility] Comment on above: Order Comment: No: D o not add to previous draw Performed By: #### 5 0608 #### [facility] [address] [place] [address], [facility] MCV (RBC) [Entitic vol] 92.6 fL Normal 82.0-98.0 [facility] Comment on above: Order Comment: No: D o not add to previous draw Performed By: #### 5 0608 #### [facility] [address] Nucleated RBC/100 WBC (Bld) [Ratio] 0 % Normal 0-0 [facility] Comment on above: Order Comment: No: D o not add to previous draw Performed By: #### 5 0608 #### [facility] [address] [place] [address], [facility] PLAT CNT 340 10*3/uL Normal 150-400 [facility] Comment on above: Order Comment: No: D o not add to previous draw Performed By: #### 5 0608 #### [facility] [address] [place] [address], [facility] RBC (Bld) [#/Vol] 3.37 10*6/uL Low 3.80-5.00 [facility] Comment on above: Order Comment: No: D o not add to previous draw Performed By: #### 5 0608 #### [facility] 3000 [facility] [place] [address], [facility] WBC (Bld) [#/Vol] 6.04 10*3/uL Normal 4.00-10.60 [facility] Comment on above: Order Comment: No: D o not add to previous draw Performed By: #### 5 0608 #### [facility] 3000 [facility] [address] PROTHROMBIN TIMEon 12 9 INR Coag (PPP) [Relative time] 1.09 {INR} Normal 0.91-1.16 [facility] Comment on above: Order Comment: No: [...] 1995;[id number]. Performed By: #### 5 6101 #### [facility] [address] PT Coag (PPP) [Time] 14.1 s Normal 12.3-14.8 [facility] Comment on above: Order Comment: No: D o not add to previous draw Result Comment: ALL RESULTS MUST BE INTERPRETED WITH RESPECT TO BLOOD DRAWING ARTIFACT OR DILUTION ERROR OF ANTICOAGULANT AT THE TIME OF SAMPLING. Performed By: #### 5 6101 #### [address] LIVERon 08-14-2019 [facility] Department of Radiology [address] [place] [id number] Patient Name: CONSTANTINO CARDOSO : 1970 Sex: F Age: Race: White Pt. Location: [id number] Patient Status: O Ordered Date: 08/13/2019 8:30:00 [...] cholecystectomy. Electronically signed by:Orestes Condon. Transcribed by: [email or web address], User Resident: Electronically Signed by: ORESTES CONDON @ 08/14/2019 02:09 PM Normal [facility] Comment on above: Order Comment: R/O S tones BASIC METABOLIC PANELon 12-0 Calcium [Mass/Vol] 9.4 mg/dL Normal 8.6-10.3 [facility] Comment on above: Order Comment: No: D o not add to previous draw Performed By: #### 3 837, [id number] #### [facility] [address] [place] [address], [place] Chloride [Moles/Vol] 105 mmol/L Normal 98-107 [facility] Comment on above: Order Comment: No: D o not add to previous draw Performed By: #### 3 954, 90543 #### [facility] [address] [place] [address], [place] CO2 [Moles/Vol] 26 mmol/L Normal 21-31 [facility] Comment on above: Order Comment: No: D o not add to previous draw Performed By: #### 3 268, [id number] #### [facility] [address] [place] [address], [place] Creatinine [Mass/Vol] 1.03 mg/dL Normal 0.60-1.20 [facility] Comment on above: Order Comment: No: D o not add to previous draw Performed By: #### 3 636, 26373 #### [facility] [address] [place] [address], [place] GFR/1.73 sq M predicted among blacks MDRD (S/P/Bld) [Vol rate/Area] mL/min/{1.73_m2} Normal >60 [facility] Comment on above: Order Comment: No: D o not add to previous draw Performed By: #### 3 228, 34108 #### [facility] [address] [place] [id number], [facility] GFR/1.73 sq M predicted among non-blacks MDRD (S/P/Bld) [Vol rate/Area] 57 ml/min/1.73sq m Abnormal >60 [facility] Comment on above: Order Comment: No: D o not add to previous draw Performed By: #### 3 690, 31184 #### [facility] [address] [place] [address], [facility] Glucose [Mass/Vol] 96 mg/dL Normal 70-100 [facility] Comment on above: Order Comment: No: D o not add to previous draw Performed By: #### 3 690, 03432 #### [facility] [address] [place] [address], [facility] Potassium [Moles/Vol] 4.1 mmol/L Normal 3.5-5.1 [facility] Comment on above: Order Comment: No: D o not add to previous draw Performed By: #### 3 690, 52233 #### [facility] [address] [place] [address], [facility] Sodium [Moles/Vol] 138 mmol/L Normal 136-145 [facility] Comment on above: Order Comment: No: D o not add to previous draw Performed By: #### 3 690, 31269 #### [facility] [address] [place] [address], [facility] Urea nitrogen [Mass/Vol] 16 mg/dL Normal 7-25 [facility] Comment on above: Order Comment: No: D o not add to previous draw Performed By: #### 3 690, [id number] #### [facility] [address] [place] [address], [facility] CBC W/DIFFon 08-13-2019 ABS BASOPHILS 0.0 10*3/uL Normal 0.0-0.2 [facility] Comment on above: Order Comment: No: D o not add to previous draw Performed By: #### 5 0103 #### [facility] [address] [place] [address], [facility] ABS IMM GRANS 0.0 10*3/uL Normal 0.0-0.2 [facility] Comment on above: Order Comment: No: D o not add to previous draw Performed By: #### 5 0103 #### [facility] [address] [place] [address], [facility] ABS NEUTROPHILS 4.0 10*3/uL Normal 1.6-7.6 [facility] Comment on above: Order Comment: No: D o not add to previous draw Performed By: #### 5 0103 #### [facility] [address] [place] [address], [facility] Basophils/100 WBC (Bld) 0.5 % Normal 0.0-1.0 [facility] Comment on above: Order Comment: No: D o not add to previous draw Performed By: #### 5 0103 #### [facility] [address] [facility] [place] [address], [facility] Eosinophils (Bld) [#/Vol] 0.2 10*3/uL Normal 0.0-0.5 [facility] Comment on above: Order Comment: No: D o not add to previous draw Performed By: #### 5 0103 #### [facility] [address] [facility] [place] [address], [facility] Eosinophils/100 WBC (Bld) 3.3 % Normal 0.0-6.0 [facility] Comment on above: Order Comment: No: D o not add to previous draw Performed By: #### 5 0103 #### [facility] [address] [place] [address], [facility] Erythrocyte distribution width (RBC) [Ratio] 12.7 % Normal 11.5-15.0 [facility] Comment on above: Order Comment: No: D o not add to previous draw Performed By: #### 5 0103 #### [facility] [address] [place] [address], [facility] Hematocrit (Bld) [Volume fraction] 33.4 % Low 36.0-45.0 [facility] Comment on above: Order Comment: No: D o not add to previous draw Performed By: #### 5 3 #### [facility] [address] [place] [id number], [facility] Hemoglobin (Bld) [Mass/Vol] 10.5 g/dL Low 12.0-15.0 [facility] Comment on above: Order Comment: No: D o not add to previous draw Performed By: #### 5 3 #### [facility] [address] [place] [address], [facility] IMMATURE GRANS 0.2 % Normal 0.0-1.0 [facility] Comment on above: Order Comment: No: D o not add to previous draw Performed By: #### 5 3 #### [facility] [address] [facility] [place] [address], [facility] Lymphocytes (Bld) [#/Vol] 1.8 10*3/uL Normal 1.2-4.0 [facility] Comment on above: Order Comment: No: D o not add to previous draw Performed By: #### 5 3 #### [facility] [address] [facility] [place] [address], [facility] Lymphocytes/100 WBC (Bld) 28.2 % Normal 20.0-45.0 [facility] Comment on above: Order Comment: No: D o not add to previous draw Performed By: #### 5 3 #### [facility] 3000 [facility] [place] [address], [facility] MCH (RBC) [Entitic mass] 28.9 pg Normal 27.0-33.0 [facility] Comment on above: Order Comment: No: D o not add to previous draw Performed By: #### 5 3 #### [facility] [address] [place] [id number], [facility] MCHC (RBC) [Mass/Vol] 31.4 g/dL Low 32.0-35.0 [facility] Comment on above: Order Comment: No: D o not add to previous draw Performed By: #### 5 0103 #### [facility] [address] [place] [id number], [facility] MCV (RBC) [Entitic vol] 92.0 fL Normal 82.0-98.0 [facility] Comment on above: Order Comment: No: D o not add to previous draw Performed By: #### 5 0103 #### [facility] [address] [place] [address], [facility] Monocytes (Bld) [#/Vol] 0.4 10*3/uL Normal 0.1-1.0 [facility] Comment on above: Order Comment: No: D o not add to previous draw Performed By: #### 5 0103 #### [facility] [address] [place] [id number], [facility] MONOS 6.2 % Normal 5.0-12.0 [facility] Comment on above: Order Comment: No: D o not add to previous draw Performed By: #### 5 3 #### [facility] [address] [facility] [place] [address], [facility] Neutrophils/100 WBC (Bld) 61.6 % Normal 40.0-72.0 [facility] Comment on above: Order Comment: No: D o not add to previous draw Performed By: #### 5 0103 #### [facility] [address] [place] [address], [facility] Nucleated RBC/100 WBC (Bld) [Ratio] 0 % Normal 0-0 [facility] Comment on above: Order Comment: No: D o not add to previous draw Performed By: #### 5 0103 #### [facility] [address] [facility] [place] [address], [facility] PLAT CNT 382 10*3/uL Normal 150-400 [facility] Comment on above: Order Comment: No: D o not add to previous draw Performed By: #### 5 0103 #### [facility] [address] [place] [address], [facility] RBC (Bld) [#/Vol] 3.63 10*6/uL Low 3.80-5.00 [facility] Comment on above: Order Comment: No: D o not add to previous draw Performed By: #### 5 0103 #### [facility] [address] [facility] [place] [address], [facility] WBC (Bld) [#/Vol] 6.45 10*3/uL Normal 4.00-10.60 [facility] Comment on above: Order Comment: No: D o not add to previous draw Performed By: #### 5 0103 #### [facility] [address] [facility] [place] [address], [facility] LIPASE BLOODon 08-13-2019 Lipase [Catalytic activity/Vol] 13 Units/L Normal 11-82 [facility] Comment on above: Performed By: #### 3 6901, [id number] #### [facility] [address] [facility] [place] [place] [address], [facility] Vital Signs Date Time Vital Sign Value Performing Clinician Facility 07-22-2023 13:19-0500 Body height 170.[address] Work Phone: [facility] 07-22-2023 13:19-0500 Body weight 83.[address] Work Phone: [facility] 07-14-2023 11:40-0500 Diastolic blood pressure 95 mm[Hg] Marques Bradley MD Work Phone: [facility] 07-14-2023 11:40-0500 Heart rate 56 /min Marques Bradley MD Work Phone: [facility] 07-14-2023 11:40-0500 Respiratory rate 16 /min Marques Bradley MD Work Phone: [facility] 07-14-2023 11:40-0500 SaO2% (BldA) [Mass fraction] 97 % Marques Bradley MD Work Phone: [facility] 07-14-2023 11:40-0500 Systolic blood pressure 158 mm[Hg] Marques Bradley MD Work Phone: [facility] 07-14-2023 11:10-0500 Body temperature 97.2 [degF] Marques Bradley MD Work Phone: [facility] 07-14-2023 08:34-0500 Body height 170.2 cm Marques Bradley MD Work Phone: [facility] 07-14-2023 08:34-0500 Body weight 88 kg Marques Bradley MD Work Phone: [facility] 04-21-2023 09:30-0400 Body height 170.18 cm Renny Gan Other [employer] Other 04-21-2023 09:30-0400 Body mass index (BMI) [Ratio] 31.21 kg/m2 Renny Gan Other [employer] Other 04-21-2023 09:30-0400 Body weight 90.4 kg Renny Gan Other [employer] Other 04-21-2023 09:30-0400 Diastolic blood pressure 78 mm[Hg] Renny Gan Other [employer] Other 04-21-2023 09:30-0400 Systolic blood pressure 130 mm[Hg] Renny Gan Other [employer] Other 03-23-2023 07:33-0400 Diastolic blood pressure 80 mm[Hg] [employer] Judi Mikael Work Phone: [facility] 03-23-2023 07:33-0400 Heart rate 81 /min [employer] Judi Mikael Work Phone: [facility] 03-23-2023 07:33-0400 Respiratory rate 14 /min [employer] Judijose manuel Ugaldemer Work Phone: [facility] 03-23-2023 07:33-0400 SaO2% (BldA) [Mass fraction] 95 % [employer] Judi Ugaldemer Work Phone: [facility] 03-23-2023 07:33-0400 Systolic blood pressure 171 mm[Hg] [employer] Judijose manuel Ugaldemer Work Phone: [facility] 03-23-2023 06:20-0400 Body height 170.18 cm [employer] Judi Youssef Work Phone: [facility] 03-23-2023 06:20-0400 Body temperature 97.4 [degF] [employer] Judi Ugaldemer Work Phone: [facility] 03-23-2023 06:20-0400 Body weight 90 kg [employer] Judi Ugaldemer Work Phone: [facility] 02-19-2023 00:53-0400 Body temperature 96.98 [degF] [facility] 02-19-2023 00:53-0400 Diastolic blood pressure 99 mm[Hg] [facility] 02-19-2023 00:53-0400 Heart rate 75 /min [facility] 02-19-2023 00:53-0400 Respiratory rate 16 /min [facility] 02-19-2023 00:53-0400 SaO2% (BldA) [Mass fraction] 98 % [facility] 02-19-2023 00:53-0400 Systolic blood pressure 153 mm[Hg] [facility] 02-15-2023 10:33-0400 Diastolic blood pressure 89 mm[Hg] [employer] Judi Mikael Work Phone: [facility] 02-15-2023 10:33-0400 SaO2% (BldA) [Mass fraction] 100 % [employer] Judi Mikael Work Phone: [facility] 02-15-2023 10:33-0400 Systolic blood pressure 149 mm[Hg] [employer] Judi Mikael Work Phone: [facility] 02-15-2023 10:00-0400 Heart rate 83 /min [employer] Judi Mikael Work Phone: [facility] 02-15-2023 10:00-0400 Respiratory rate 16 /min [employer] Judi Mikael Work Phone: [facility] 02-15-2023 08:06-0400 Body height 170.18 cm [employer] Judi Mikael Work Phone: [facility] 02-15-2023 08:06-0400 Body temperature 97.6 [degF] [employer] Judi Mikael Work Phone: [facility] 02-15-2023 08:06-0400 Body weight 89.2 kg [employer] Judi Mikael Work Phone: [facility] 10-26-2022 08:03-0500 Diastolic blood pressure 87 mm[Hg] [employer] Judi Mikael Work Phone: [facility] 10-26-2022 08:03-0500 Heart rate 70 /min [employer] Judi Mikael Work Phone: [facility] 10-26-2022 08:03-0500 Respiratory rate 18 /min [employer] Judi Youssef Work Phone: [facility] 10-26-2022 08:03-0500 SaO2% (BldA) [Mass fraction] 98 % [employer] Judi Youssef Work Phone: [facility] 10-26-2022 08:03-0500 Systolic blood pressure 161 mm[Hg] [employer] Judi Youssef Work Phone: [facility] 10-26-2022 06:17-0500 Body height 170.18 cm [employer] Judi Youssef Work Phone: [facility] 10-26-2022 06:17-0500 Body temperature 97.2 [degF] [employer] Judi Youssef Work Phone: [facility] 10-26-2022 06:17-0500 Body weight 88.9 kg [employer] Judi Youssef Work Phone: [facility] 07-22-2022 14:34-0500 Diastolic blood pressure 83 mm[Hg] Ospina SALAM [facility] 07-22-2022 14:34-0500 Mean blood pressure 101 mm[Hg] Ospina SALAM [facility] 07-22-2022 14:34-0500 Systolic blood pressure 136 mm[Hg] Ospina SALAM [facility] 07-22-2022 14:30-0500 Blood Pressure Location Ospina SALAM [facility] 07-22-2022 14:30-0500 Diastolic blood pressure 89 mm[Hg] Ospina SALAM [facility] 07-22-2022 14:30-0500 Heart rate 62 /min Ospina SALAM [facility] 07-22-2022 14:30-0500 Respiratory rate 16 /min Anai ROTHMANAM [facility] 07-22-2022 14:30-0500 SaO2% (BldA) [Mass fraction] 98 % Ospina SALAM [facility] 07-22-2022 14:30-0500 Systolic blood pressure 141 mm[Hg] Anai ROTHMANAM [facility] 04-14-2022 14:50-0400 Blood Pressure Location Monique Marquez [facility] 04-14-2022 14:50-0400 Body temperature 97.16 [degF] Monique Reddymetz [facility] 04-14-2022 14:50-0400 Diastolic blood pressure 86 mm[Hg] Monique Reddymetz [facility] 04-14-2022 14:50-0400 Heart rate 72 /min Monique Reddymetz [facility] 04-14-2022 14:50-0400 SaO2% (BldA) [Mass fraction] 97 % Monique Reddymetz [facility] 04-14-2022 14:50-0400 Systolic blood pressure 131 mm[Hg] Monique Jimmy [facility] 01-28-2022 13:36-0400 Blood Pressure Location Moniquejuan luis ReddyJimmy [facility] 01-28-2022 13:36-0400 Body temperature 97.52 [degF] Monique Marquez [facility] 01-28-2022 13:36-0400 Diastolic blood pressure 85 mm[Hg] Monique Reddymetz [facility] 01-28-2022 13:36-0400 Heart rate 73 /min Moniquejuan luis ReddyJimmy [facility] 01-28-2022 13:36-0400 SaO2% (BldA) [Mass fraction] 96 % Monique Marquez [facility] 01-28-2022 13:36-0400 Systolic blood pressure 122 mm[Hg] Monique Reddymetz [facility] 01-11-2022 10:15-0400 Blood Pressure Location Ospina SALAM [facility] 01-11-2022 10:15-0400 Diastolic blood pressure 106 mm[Hg] Ospina SALAM [facility] 01-11-2022 10:15-0400 Heart rate 70 /min Ospina SALAM [facility] 01-11-2022 10:15-0400 Respiratory rate 28 /min Ospina SALAM [facility] 01-11-2022 10:15-0400 SaO2% (BldA) [Mass fraction] 99 % Ospina SALAM [facility] 01-11-2022 10:15-0400 Systolic blood pressure 137 mm[Hg] Ospina SALAM [facility] 01-11-2022 10:05-0400 Blood Pressure Location Ospina SALAM [facility] 01-11-2022 10:05-0400 Diastolic blood pressure 74 mm[Hg] Ospina SALAM [facility] 01-11-2022 10:05-0400 Heart rate 67 /min Ospina SALAM [facility] 01-11-2022 10:05-0400 Respiratory rate 14 /min Ospina SALAM [facility] 01-11-2022 10:05-0400 SaO2% (BldA) [Mass fraction] 97 % Ospina SALAM [facility] 01-11-2022 10:05-0400 Systolic blood pressure 128 mm[Hg] Ospina SALAM [facility] 01-11-2022 10:00-0400 Blood Pressure Location Ospina SALAM [facility] 01-11-2022 10:00-0400 Diastolic blood pressure 79 mm[Hg] Ospina SALAM [facility] 01-11-2022 10:00-0400 Heart rate 66 /min Ospina SALAM [facility] 01-11-2022 10:00-0400 Respiratory rate 16 /min Ospina SALAM [facility] 01-11-2022 10:00-0400 SaO2% (BldA) [Mass fraction] 98 % Ospina SALAM [facility] 01-11-2022 10:00-0400 Systolic blood pressure 134 mm[Hg] Ospina SALAM [facility] 01-11-2022 09:50-0400 Body temperature 97.52 [degF] Ospina SALAM [facility] 01-11-2022 09:45-0400 Respiratory rate 15 /min Ospina SALAM [facility] 01-11-2022 09:18-0400 Body temperature 97.34 [degF] Ospina SALAM [facility] 01-11-2022 09:18-0400 Respiratory rate 20 /min Ospina SAL[facility] Encounters Encounter Date Encounter Type Care Provider Facility Start: 08-25-2023 End: 08-25-2023 ambulatory JOEL PANCHAL [facility] Facility:[facility] Start: 07-29-2023 Orders Only Evelyn Black RN [facility] eral Surgery Comment on above: Gastroparesis (Prima ry Dx) Start: 07-22-2023 End: 07-22-2023 ambulatory MARQUES BRADLEY Facility:[facility] Start: 07-22-2023 Telephone encounter Evelyn Black RN General Surgery Start: 07-22-2023 End: 07-22-2023 Nutrition therapy Melissa Montalvo RD Work Phone: General Surgery Comment on above: Gastroparesis (Prima ry Dx); Malnutrition of moderate degree (HCC); Gastro-esophageal reflux disease without esophagitis; Overweight (BMI 25.0-29.9); Dietary counseling and surveillance Start: 07-22-2023 End: 07-22-2023 Telemedicine consultation with patient Melissa Montalvo RD Work Phone: [facility] Start: 07-14-2023 End: 07-14-2023 ambulatory MARQUES BRADLEY Facility:[facility] Start: 07-14-2023 End: 07-14-2023 Subsequent hospital visit by physician Marques Bradley MD Work Phone: Gastroenterology Comment on above: Dysphagia, unspecifi ed type [R13.10] Start: 07-13-2023 End: 07-13-2023 ambulatory MARQUES BALLMADAN Facility:[facility] Start: 06-06-2023 End: 06-07-2023 ambulatory Samuel Estrella Facility:[facility] Start: 05-27-2023 Telephone encounter Evelyn Black RN General Surgery Comment on above: Results Start: 05-26-2023 End: 05-26-2023 ambulatory MARQUES Jorge MIRNA Facility:[facility] Start: 05-25-2023 End: 05-25-2023 ambulatory JOEL PANCHAL [facility] Facility:[facility] Start: 05-25-2023 End: 05-25-2023 Nursing evaluation of patient and report Nurse Gi Lab 2 Work Phone: Gastroenterology Comment on above: Nausea Start: 05-16-2023 Orders Only Evelyn Black RN Gen eral Surgery Comment on above: Nausea (Primary Dx); Dysphagia, unspecified type Start: 05-06-2023 End: 05-07-2023 ambulatory MARQUES BRADLEY Facility:[facility] Start: 05-02-2023 Telephone encounter Evelyn Black RN General Surgery Start: 04-26-2023 Telephone encounter Evelyn Black RN General Surgery Start: 04-21-2023 End: 04-21-2023 ambulatory Renny Gan Other [employer] Other Start: 04-21-2023 Office outpatient vi sit 15 minutes Renny TOUSSAINT Gastroenterology Start: 04-18-2023 Telephone encounter Evelyn Black RN General Surgery 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 Start: 04-07-2023 Telephone encounter Guillermo Martinez DO Work Phone: Gastroenterology Comment on above: Appointment Start: 04-05-2023 End: 04-05-2023 ambulatory Imad Asaad Other [employer] Other Start: 04-05-2023 Telephone encounter Imad Asaad [facility] Start: 03-29-2023 ambulatory Facility:[facility] Start: 03-26-2023 ambulatory Facility:[id number] Start: 03-26-2023 End: 03-31-2023 Evaluation and management of inpatient Renny Gan Facility:[facility] Start: 03-26-2023 ambulatory Facility:[id number] Start: 03-24-2023 End: 03-24-2023 ambulatory Imad Asaad Other [employer] Other Start: 03-24-2023 Telephone encounter Imad Asaad [facility] Start: 03-23-2023 End: 03-23-2023 Emergency department patient visit Judi Youssef Facility:[facility] Start: 03-23-2023 End: 03-23-2023 Emergency department patient visit [employer] Judi Youssef Work Phone: [facility] Work Phone: Start: 03-22-2023 End: 03-22-2023 ambulatory Imad Asaad Other [employer] Other Start: 03-22-2023 Telephone encounter Imad Asaad [facility] Start: 03-09-2023 End: 03-09-2023 ambulatory Imad Asaad Other [employer] Other Start: 03-09-2023 Telephone encounter Imad Asaad [facility] Start: 03-01-2023 End: 03-01-2023 ambulatory Imad Asaad Other [employer] Other Start: 03-01-2023 Telephone encounter Imad Asaad [facility] Start: 02-19-2023 End: 02-19-2023 Emergency department patient visit Zabrina Patton Facility:[facility] Start: 02-19-2023 End: 02-19-2023 Emergency department patient visit [facility]ab[facility] Start: 02-15-2023 End: 02-15-2023 Emergency department patient visit [employer] Judi Youssef Work Phone: [facility] Work Phone: Start: 11-30-2022 End: 12-01-2022 ambulatory JUDI YOUSSEF Facility:[facility] Start: 11-27-2022 End: 11-28-2022 ambulatory JUDI YOUSSEF Facility:[facility] Start: 11-26-2022 End: 11-26-2022 ambulatory Imad Asaad Other [facility] Other Start: 11-26-2022 Telephone encounter Imad Asaad [facility] Start: 11-04-2022 End: 11-04-2022 ambulatory Judi Youssef Facility:[facility] Start: 11-04-2022 End: 11-04-2022 Admission to same day surgery center [employer] Judi Youssef Work Phone: [facility] [place] Work Phone: Start: 11-04-2022 End: 11-04-2022 ambulatory [employer] Judi Youssef Work Phone: [facility] Work Phone: Start: 11-01-2022 End: 11-02-2022 ambulatory JUDI YOUSSEF Facility:[facility] Start: 10-26-2022 End: 10-26-2022 Emergency department patient visit Judi Youssef Facility:[facility] Start: 10-26-2022 End: 10-26-2022 Emergency department patient visit [employer] Judi Youssef Work Phone: [facility] Work Phone: Start: 09-23-2022 ambulatory Monique Enrique ty:Lilo GARCIA Start: 09-21-2022 End: 09-21-2022 ambulatory JUDI YOUSSEF Facility:[facility] Start: 09-18-2022 End: 09-18-2022 ambulatory BALTAZAR GEORGES . Facility:[facility] Start: 09-14-2022 End: 09-14-2022 ambulatory EUN WILSON . Facility:[facility] Start: 09-07-2022 End: 09-07-2022 ambulatory Jennie Curtisleo Other [facility] Other Start: 09-07-2022 Telephone encounter Imleo Ayon [facility] [employer] Start: 09-06-2022 End: 09-07-2022 ambulatory JUDI YOUSSEF Facility:[facility] Start: 08-20-2022 End: 08-20-2022 ambulatory BALTAZAR GEORGES . Facility:[facility] Start: 08-17-2022 End: 08-18-2022 ambulatory JUDI YOUSSEF Facility:[facility] Start: 08-11-2022 End: 08-12-2022 ambulatory JUDI YOUSSEF Facility:[facility] Start: 08-08-2022 End: 08-08-2022 ambulatory KATHRIN VANCE Facility:[facility] Start: 07-22-2022 End: 07-23-2022 ambulatory [facility] Facility:[facility] Start: 07-22-2022 End: 07-22-2022 Patient encounter procedure [facility] Start: 07-21-2022 End: 07-21-[address] NORA WINN Facility:[facility] Start: 07-15-2022 ambulatory JUDI YOUSSEF Facility: [facility] Start: 07-12-2022 Encounter for genera l adult medical examination without abnormal findings JUDI YOUSSEF [facility] Start: 07-08-2022 End: 07-09-2022 ambulatory [...] End: 04-29-2022 Lab Drop off Anai [facility] Start: 04-14-2022 End: 04-14-2022 Patient encounter procedure Monique Marquez [facility] Start: 03-27-2022 End: 03-30-2022 Evaluation and management of inpatient SHAIKH Juan Luis DAVIS Facility:[facility]1 Start: 03-01-2022 End: 03-01-2022 Patient encounter procedure Monique Marquez [facility] Start: 02-02-2022 End: 02-02-2022 ambulatory BALTAZAR GEORGES . Facility:[facility]1 Start: 01-28-2022 End: 01-28-2022 Patient encounter procedure Monique Marquez [facility] Start: 01-11-2022 End: 01-11-2022 Patient encounter procedure Anai [facility] Start: 12-24-2021 End: 12-24-2021 Patient encounter procedure JHOANA MELGOZA [facility] Start: 08-13-2019 End: 08-16-2019 Evaluation and management of inpatient LEONA MORTENSEN Facility:[facility] Procedures Date Procedure Procedure Detail Performing Clinician Start: 07-14-2023 Esophagoscp rig transoral hypopharynx crv esoph Evelyn Black RN Start: 05-25-2023 Esophageal motility study w/interp&rpt Evelyn Black RN Start: 03-23-2023 Computed tomography of abdomen and pelvis with contrast [employer]Paula Youssef Work Phone: Start: 02-15-2023 Computed tomography of abdomen and pelvis with contrast [employer] Judi Youssef Work Phone: Start: 11-04-2022 CT of small intestine [employer] Judi Youssef Work Phone: Start: 10-26-2022 Computed tomography of abdomen and pelvis with contrast [employer] Judi Youssef Work Phone: Start: 01-11-2022 Esophagogastroduodenoscopy Anai REAGAN Start: 05-13-2021 Esophagogastroduodenoscopy JHOANA Major Start: 09-30-2020 Esophagogastroduodenoscopy JHOANA Major Start: 03-13-2020 Colonoscopy JHOANA MELGOZA Start: 01-30-2020 Esophagogastroduodenoscopy JHOANA Major Start: 08-15-2019 FLUOROSCOPY OF UPPER GI AND SMALL BOWEL USING OTHER CONTRAST OERSTES CONDON Start: 05-17-2019 Colonoscopy JHOANA MELGOZA Start: 05-17-2019 Esophagogastroduodenoscopy JHOANA Major Start: 03-02-2019 Hernia surgical mesh (physical object) JHOANA MELGOZA Comment on above: Dr. Mortensen in [place]. Hernia repair JHOANA MELGOZA Hysterectomy JHOANA MELGOZA Plan of Treatment Date Care Activity Detail Author Start: 05-06-2023 Covid-19 Vaccine () Covid-19 Vaccine () [facility] Start: 05-06-2023 Influenza vaccination C [facility] Start: 09-05-2022 DEPRESSION ASSESSMENT DEPRESSION ASS ESSMENT [facility] Start: 01-01-2022 COVID-19 VACCINE (4 - Pfizer series) COVID-19 VACCINE (4 - Pfizer series) [facility] Start: 2020 SHINGRIX VACCINE (1 of 2) SHINGRIX VACCINE (1 of 2) [facility] Start: 2015 COLOGUARD (FIT-DNA) COLOGUARD (FIT-D NA) [facility] Start: 2015 Colonoscopy COLONOSCOPY [facility] Start: 2015 COLORECTAL CANCER SCREENING COLORECTAL CANCER SCREENING [facility] Start: [address] COLONOGRAPHY [facility] Start: 2015 DIABETES SCREEN DIABETES SCREEN [facility] Start: 2015 Diabetes Screening Diabetes Screenin g [facility] Start: 2015 FECAL OCCULT BLOOD FECAL OCCULT BLOO D [facility] Start: 2015 Lipid 1996 panel - S cristine or Plasma Lipid Screening [facility] Start: 2015 LIPID SCREEN LIPID SCREEN [facility] Start: 2015 SIGMOIDOSCOPY SIGMOIDOSCOPY [facility] Start: 2010 Mammography [facility] Start: 2000 HPV TESTING HPV TESTING [facility] Start: 1991 PAP TESTING PAP TESTING [facility] Start: 1989 Urine microalbumin profile [facility] Start: 1988 HEPATITIS C SCREENING HEPATITIS C SC REENING [facility] Start: 1988 HIV SCREENING HIV SCREENING [facility] Start: 1970 COVID-19 VACCINE (#1) COVID-19 VACCI NE (#1) [facility] Start: 1970 HEPATITIS B (1 of 3 - 3-dose series) HEPATITIS B (1 of 3 - 3-dose series) [facility] Start: 1970 Hepatitis B Vaccine (1 of 3 - 3-dose series) Hepatitis B Vaccine (1 of 3 - 3-dose series) [facility] End: 07-29-2024 EGD - THERAPEUTIC, EUS, OR TUBE INTERVENTIONS EGD - THERAPEUTIC, EUS, OR TUBE INTERVENTIONS Endoscopy Routine Gastroparesis 1 Occurrences starting 07/29/2023 until 07/29/2024 [facility] Work Phone: Comment on above: 1 Occurrences starti ng 07/29/2023 until 07/29/2024 End: 05-16-2024 Esophageal motility study w/interp&rpt MANOMETRY ESOPHAGEAL Endoscopy Routine Nausea 1 Occurrences starting 05/16/2023 until 05/16/2024 [facility] Work Phone: Comment on above: 1 Occurrences starti ng 05/16/2023 until 05/16/2024 Esophageal motility study w/interp&rpt MANOMETRY ESOPHAGEAL Endoscopy Routine Nausea 05/25/2023 [facility] Work Phone: End: 06-14-2024 Gastric emptying imaging study NM GASTRIC EMPTYING SOLID Radiology Routine Nausea 1 Occurrences starting 05/16/2023 until 06/14/2024 [facility] Work Phone: Comment on above: 1 Occurrences starti ng 05/16/2023 until 06/14/2024 Patient Education [facility] Work Phone: Patient referral [facility] Work Phone: SURGICAL PATHOLOGY [facility] Work Phone: Comment on above: Release Upon Orderin g for 1 Occurrences starting 07/14/2023, 1 completed [facility] Immunizations Immunization Date Immunization Notes Care Provider [facility] 06-09-2022 influenza virus vaccine, unspecified formulation Nurse 2 Work Phone: [facility] 03-18-2022 SARS-CoV-2 mRNA (hldidkqwspi-rehr-dix jett) vaccine [employer] [employer] [facility] 11-06-2021 SARS-CoV-2 (COVID-19 ) mRNA BNT-162b2 vax Ospina SALAM [facility] 05-06-2021 influenza virus vaccine, unspecified formulation JHOANA MELGOZA [facility] 02-26-2021 SARS-CoV-2 (COVID-19 ) mRNA BNT-162b2 vax JHOANA MELGOZA [facility] 02-05-2021 SARS-CoV-2 (COVID-19 ) mRNA BNT-162b2 vax Anai REAGAN [facility] Comment on above: Result Comment: 2021: [id number] NEGATED: Highlighted row has not occurred!04-14-2022 influenza virus vaccine, unspecified formulation Monique Marquez [facility] Payers Date Payer Category Payer Unknown RINA MARTINEZ SS PPO [id number] 2022-Present [phone] [address] [place] [address] PPO [id number] 2018 Private Health Insurance [id number] 2018 Private Health Insurance [facility] CHOICE PLUS [id number] 2018-Present [phone] [address] [place] [address] HMO [id number] 1970 Unknown [id number] 2.16.840.1.788477.3.579.2 .647 1970 Unknown [id number] 2.16.840.1.629789.3.579.2 .593 1970 Unknown [id number] 2.16.840.1.469174.3.579.2 .593 1970 Unknown [id number] 2.16.840.1.102012.3.579.2 .593 1970 Unknown [id number] 2.16.840.1.962897.3.579.2 .593 1970 Unknown [id number] 2.16.840.1.530062.3.579.2 .593 1970 Unknown [id number] 2.16.840.1.531671.3.579.2 .593 1970 Unknown [id number] 2.16.840.1.419421.3.579.2 .593 1970 Unknown [id number] 2.16.840.1.056990.3.579.2 .593 1970 Unknown [id number] 2.16.840.1.750340.3.579.2 .593 1970 Unknown [id number] 2.16.840.1.075172.3.579.2 .593 1970 Unknown [id number] 2.16.840.1.187467.3.579.2 .593 1970 Unknown [id number] 2.16.840.1.764247.3.579.2 .593 1970 Unknown [id number] 2.16.840.1.028751.3.579.2 .593 1970 Unknown [id number] 2.16.840.1.827341.3.579.2 .593 1970 Unknown [id number] 2.16.840.1.772370.3.579.2 .593 1970 Unknown [id number] 2.16.840.1.761355.3.579.2 .593 1970 Unknown [id number] 2.16.840.1.308471.3.579.2 .593 1970 Unknown [id number] 2.16.840.1.854086.3.579.2 .593 1970 Unknown [id number] 2.16.840.1.905213.3.579.2 .593 1970 Unknown [id number] 2.16.840.1.494015.3.579.2 .593 1970 Unknown [id number] 2.16.840.1.565962.3.579.2 .356 1970 Unknown [id number] 2.16.840.1.621087.3.579.2 .356 1970 Unknown [id number] 2.16.840.1.034952.3.579.2 .727 1970 Unknown [id number] 2.16.840.1.290214.3.579.2 .727 1970 Unknown [id number] 2.16.840.1.392713.3.579.2 .727 1970 Unknown [id number] 2.16.840.1.519283.3.579.2 .727 1959 Medicaid [id number] 1959 Self-pay [id number] 1959 Unknown [id number] 1959 Unknown [id number] Medicare Medicare [id number] Unknown [id number] 2.16.840.1.474935.3.579.2 .531 Unknown [id number] 2.16.840.1.015282.3.579.2 .531 Unknown [id number] 2.16.840.1.435787.3.579.2 .531 Unknown [id number] 2.16.840.1.689024.3.579.2 .531 Unknown [id number] 2.16.840.1.878011.3.579.2 .531 Worker's Compensation Industrial Self [employer] [facility] [id number] Social History Date Type Detail Facility Start: 12-03-2021 End: 05-06-2023 Tobacco smoking status Ex-smoker (finding) [facility] Start: 08-12-2020 End: 05-06-2023 Sex Assigned At Female [facility] Tobacco smoking status Never [facility] Start: 1970 Sex Assigned At Female F [facility] End: 09-05-2011 History of tobacco use Current smoker [facility] Work Phone: End: 09-05-2011 History of tobacco use Cigarette Smoker [facility] Work Phone: Start: 04-28-2018 End: 05-06-2023 Tobacco use and exposure Smokeless tobacco non-user [facility] Work Phone: Start: 04-28-2018 End: 05-06-2023 Alcohol intake Current drinker of alcohol (finding) [facility] Start: 08-12-2020 End: 05-06-2023 History of Social function [facility] Start: 04-28-2018 End: 05-06-2023 Tobacco Comment still smokes [facility] Start: 04-28-2018 Alcohol [facility] Start: 1970 Sex Assigned At Not on file C [facility] Start: 07-14-2023 Alcohol intake Ex-drinker (finding) [facility] Functional Status Date Assessment Result Facility 02-19-2023 Functional Status N/A [facility] 07-22-2022 Functional Status N/A [facility] 04-14-2022 Functional Status N/A [facility] Clinical Notes 12-02-2021 to 08-25-2023 Evelyn Black RN - 07/29/2023 11:17 AM ESTPatient InstructionsTelephone Encounter - Evelyn Black RN - 07/22/2023 3:[address] - 07/22/2023 1:15 PM EST Note Date & Type Note Facility 08-25-2023 Note HNO ID: [id number] Author: Ellis Mayberry, DO Service: ? Author [...] August 25, 2023 TIME: 2:59 PM CSN: [id number] [facility] 08-25-2023 Note Q3 Patient Name: Constantino Cardoso Procedure Date: 08/25/2023 2:38 PM Date of : 1970 Admit Type: Outpatient Age: 53 Gender: Female Note Status: Finalized Attending MD: Marques Bradley MD, [id number] Procedure: Upper GI endoscopy Indications: Gastroparesis- for GPOEM Providers: Marques Bradley MD, [facility] (Fellow) Patient Profile: This is a 53 [...] the patient. Procedure Code(s): --- Professional --- 08334 Diagnosis Code(s): --- Professional --- K44.9 Z98.890 CPT copyright 2020 [employer]. All rights reserved. Attending Participation: I personally performed the entire procedure. Scope In: 2:59:10 PM Scope Out: 3:37:20 PM MD Marques Rainey MD 08/25/2023 3:41:00 PM This report has been signed electronically by Marques Bradley MD Number of Addenda: 0 Note Initiated On: 08/25/2023 2:38 PM [facility] 07-29-2023 Note HNO ID: [id number] Author: Evelyn Black RN Service: ? Author Type: Registered Nurse Type: Progress Notes Filed: 07/29/2023 11:18 AM Note Text: e [facility] 07-29-2023 History of Present illness Narrative e documented in this encounter [facility] 07-22-[address] [...] High Protein, Atkins, Boost Glucose Control, Owyn, Bethesda Breakfast Essentials Light Start mixed with Fairlife [...] calories, no carbonation, no caffeine. Protein juarez (inupias2w, Isopure, Gatorade protein), electrolyte drinks (Gatorade or Powerade zero, sugar free liquid IV or Drip Drop), sugar free jello and sugar free popsicles are also acceptable. Nutrition Monitoring & Evaluation: increase PO intake >75% of estimated needs, weight check and patient update Need for Follow up: based on surgery status documented in this encounter [facility] 07-22-2023 Note HNO ID: [id number] Author: Melissa Montalvo RD Service: ? Author Type: Registered Dietitian Type: Progress Notes Filed: 07/22/2023 4:06 PM Note Text: [facility] Nutrition Therapy: Virtual Consult - Initial Assessment I have communicated my name and active licensure. The patient?s identity and physical location were verified at the time of this visit. Either the patient or their legal payroll representative has been informed of the risks [...] High Protein, Atkins, Boost Glucose Control, Owyn, Bethesda Breakfast Essentials Light Start mixed with Fairlife [...] calories, no carbonation, no caffeine. 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 [place] body weight: 159 lbs. 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 [facility] 07-22-2023 Miscellaneous Notes BMI SPECIALTY CARE COORDINATION TELEPHONE ENCOUNTER Pt was seen in clinic and an EGD was ordered and completed. Recommendation was a GPOEM. Will consult with surgeon next week regarding next POC for pt. Pt VU. documented in this encounter [facility] 07-22-2023 History of Present illness Narrative [facility] Nutrition Therapy: Virtual Consult - Initial Assessment I have communicated my name and active licensure. The patient s identity and physical location were verified at the time of this visit. Either the patient or their legal payroll representative has been informed of the risks [...] High Protein, Atkins, Boost Glucose Control, Owyn, Bethesda Breakfast Essentials Light Start mixed with Fairlife fat free or 1% milk. -Check www.bariatricfusion.com or www.Gameology.com for additional options. Take small bites, eat slowly, chew food well, and always eat protein first. Separate eating and drinking by 30 min before and after. Aim for >64 oz water/day. Take small sips and avoid straws. Liquids should be sugar-free, no calories, no carbonation, no caffeine. 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 [place] body weight: 159 lbs. 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 Procedure Code(s): --- Professional --- 15141 Diagnosis Code(s): --- Professional --- K44.9 K31.89 Z98.890 R10.13 CPT copyright 2020 [employer]. All rights reserved. Attending Participation: I personally performed the entire procedure. Scope In: 10:40:19 AM Scope Out: 10:50:37 AM MD Marques Rainey MD 07/14/2023 10:53:09 AM This report has been signed electronically by Marques Bradley MD Number of Addenda: 0 Note Initiated On: 07/14/2023 10:24 AM [facility] 07-14-2023 Nurse Note 1121: Dr. Mehrdad [...] In Department: GASTROENTEROLOGY documented in this encounter [facility] 07-13-2023 Note HNO ID: [id number] Author: Brennen Shaw, PhD Service: ? Author Type: Physician Type: Progress Notes Filed: 07/19/2023 10:07 AM Note Text: [facility]HAVIORAL [facility] EVALUATION DATE OF SERVICE: July 13, 2023 TIME OF SERVICE: 2:10 PM-3:29 PM COST CENTER: [facility] CPT CODE: - 87982 Brief Emotional/Behavioral Assessment with scoring/documentation - [id number] Virtual Psych Diagnostic Eval BILLING CODE: ENDO PSYL MAIN 79286/Marco DATE OF FIRST SERVICE THIS CYCLE: July 13, 2023 SESSION #: 1 BMI Surgical Pathway Visit type: Bariatric Surgeon Visit I have communicated my name and active licensure. The patient's identity and physical location were verified at the time of this visit. Either the patient or their legal payroll representative has been informed of the risks [...] other people who have undergone the procedure (mcc Specific areas of understanding that should be [...] the binge episod (more content not included)... [facility] 05-27-2023 Miscellaneous Notes BMI SPECIALTY CARE COORDINATION TELEPHONE ENCOUNTER Pt contacted today regarding testing ordered when she had a consult with Dr Bradley. Manometry was normal and her GES was severely delayed. Reviewed results and will discuss with if POP is the next plan of care. Will update pt. Pt agreed with plan. documented in this encounter [facility] 05-26-2023 Note HNO ID: [id number] Author: Nabil Bell RT(R) Service: Nuclear Medicine [...] 715 PATIENT DISCHARGED TO: Ambulatory patient, left [place] department area. A Diagnostic radioactive procedure has taken place, with no further precautions necessary other than routine body substance precautions. More information regarding radiation safety can be found using this link: [email or web address]%20Medicine [email or web address] SIGNATURE: RT Charmaine(R) PATIENT NAME: Constantino Cardoso DATE: May 26, 2023 TIME: 7:17 AM PAGER/CONTACT #: [facility] 05-25-2023 Note HNO ID: [id number] Author: Pedro Gonzalez LPN Service: ? Author Type: LICENSED NURSE Type: Progress Notes Filed: 05/25/2023 4:15 PM Note Text: Name: Constantino Cardoso [facility]#: [id number] Date: 05/25/2023 ESOPHAGEAL MANOMETRY TEST Indication: Nausea [...] the test without difficulty. .Pedro Gonzalez LPN [facility] 05-25-2023 History of Present illness Narrative Name: Constantino Cardoso [facility]#: [id number] Date: 05/25/2023 ESOPHAGEAL MANOMETRY TEST Indication: Nausea [...] .Pedro Gonzalez LPN documented in this encounter [facility] 05-16-2023 Miscellaneous Notes BMI SPECIALTY [...] a gastric bypass. documented in this encounter [facility] 05-06-2023 Note HNO ID: [id number] Author: Marques Bradley MD Service: ? Author [...] for internal providers or letter via the [employer] Postal Service for external providers. Chief Complaint: [...] Bradley MD Date: 05/12/2023 Time: 8:15 AM [facility] 05-02-2023 Miscellaneous Notes BMI SPECIALTY CARE COORDINATION TELEPHONE ENCOUNTER Chief complaint & duration dysphagia. Type of procedure: hernia repair hiatal with Dr. MORTENSEN in [place] February of 2019. Sending OP notes Nursing assessment (subjective/objective) . pain in chest area and getting worse Went to [place] ED March 2023 who told her she needed a stent in her heart..but her c/o were difficulty swallowing and sent pt home and referred her to [facility] and was there in the hospital for [...] after records obtained documented in this encounter [facility] 04-26-2023 Miscellaneous Notes [facility] SPECIALTY CARE COORDINATION TELEPHONE ENCOUNTER Second attempt to contact this pt. Pt has upcoming information, and unable to complete any chart prep, history, symptoms, testing etc. LVM and call back number. documented in this encounter [facility] 04-21-2023 Evaluation note Encounter Date Diagnosis Assessment Notes Apr, Esophageal dysmotility (ICD-10 - K22.4) Apr, Esophageal spasm (ICD-10 - K22.4) Apr, Nausea & vomiting (ICD-10 - R11.2) Patinet reports that she still has nausea but no vomiting Patient reports that she is to see Dr. Strong at [facility] Patient is to start dicyclomine 20 mg 4 times daily sent to [facility] today RTO 6 weeks Apr, Dysphagia (ICD-10 - R13.10) [employer] Other 08-14-2023 Miscellaneous Notes* Telephone Encounter - Evelyn Black RN - 04/18/2023 2:13 PM EDT [facility] SPECIALTY CARE COORDINATION TELEPHONE ENCOUNTER Contacted pt regarding a referral from Dr Martinez's office. LVM and call back number. [facility] Miscellaneous Notes* Telephone Encounter - Yancy Lopez - 04/07/2023 1:15 PM EDT Referral rec'd [facility] Evaluation + Plan note Extracted [...] Views Right XR Wrist 3+ Views Right [facility] Hospital Discharge instructions Patient Education [...] are safe for you. General instructions Take ixhp-tee-pnywynl and prescription medicines only as told by [...] provider. Document Revised: 12/29/2020 Document Reviewed: 12/29/2020 [employer] Patient Education 2022 Diagonal View. Follow Up Care 02/19/2023 00:51:16 With:JUDI YOUSSEF Address: [address] [place] [address] [phone] Business (1) When:02/22/2023 Comments:Take the pain medication as prescribed as needed for pain. Please follow-up with your primary care doctor in the next 2 to 3 days for further evaluation management. Please return to the ED for any new or worsening symptoms or [facility]08-10[facility]2022 Hospital Discharge instructions Patient Education [...] water added (diluted fruit juice). Eat bland, zhxz-ar-sfyspn foods in small amounts as you are able. These foods include bananas, applesauce, rice, lean meats, toast, and crackers. Avoid fluids that contain a lot of sugar or caffeine, such as energy drinks, sports drinks, and soda. Avoid alcohol. Avoid spicy or fatty foods. General instructions Take dqsc-fif-zpfjmjy and prescription medicines only as told by your health care provider. Drink enough fluid to keep your urine pale yellow. Wash your hands often using soap and water. If soap and water are not available, use hand supreme court judge. Make sure that all people in your [...] eating and drinking to prevent dehydration. Take bwhk-zli-cndjwqg and prescription medicines only as told by [...] 08/22/2006 Document Revised: 12/14/2019 Document Reviewed: 01/30/2019 [employer] Patient Education 2019 Diagonal View. Follow Up Care 01/28/2022 13:58:23 With:Monique Marquez CNP Address: When:3 months [facility] 05-26-2022 Hospital Discharge [...] drinks. ?Tomatoes and foods made with tomatoes. ?[place] or spicy foods. ?Chocolate and peppermint. Do not drink alcohol. General instructions Take cavl-asa-mzyamfx and prescription medicines only as told by [...] 11/11/2004 Document Revised: 12/18/2018 Document Reviewed: 12/18/2018 [employer] Patient Education 2020 Diagonal View. Follow Up Care 01/13/2022 12:36:01 With:Monique Marquez CNP Address: When:3 months [facility] 05-09-2022 Hospital Discharge instructions Patient Education 01/11/2022 09:56:58 Endoscopy, Care After Procedure [facility] Endoscopy Care After Procedure Please read the [...] 04/05/2005 Document Re-Released: 02/13/2007 ExitCare Patient Information [employer]. 01/11/2022 09:56:58 Pearce's Esophagus Pearce's Esophagus Pearce's [...] drinks. ?Tomatoes and foods made with tomatoes. ?[place] or spicy foods. ?Chocolate and peppermint. Do not drink alcohol. General instructions Take rqxe-yua-yshsniz and prescription medicines only as told by [...] 11/11/2004 Document Revised: 12/18/2018 Document Reviewed: 12/18/2018 [employer] Patient Education [employer]. Follow Up Care 12/03/2021 15:32:26 With:Anai REAGAN Address: [address] [place] [address] Business (1) When:1 to 2 weeks Comments:Call for any problems. [facility] Hospital Discharge instructions Follow Up Care 12/02/2021 10:32:32 With:JHOANA MELGOZA PA-C, URL Address: [address] [place] [address] When: Unknown [facility] Evaluation + Plan note Future Appointments Appointment Date:01/11/2022 09:40:00 AM Scheduled Provider: Location:[facility] Appointment Type:Surgery FT [facility] Evaluation + Plan note Future Appointments Appointment Date:04/14/2022 03:00:00 PM Scheduled Provider:Monique Marquez CNP Location:[facility] Appointment Type:[facility] Follow Up Future Scheduled Tests Radiology* NM Gastric Emptying Study 01/28/22 [facility] Evaluation + Plan note Future Appointments Appointment Date:04/14/2022 03:00:00 PM Scheduled Provider:Monique Marquez CNP Location:[facility] Appointment Type:[facility] Future Appointments Appointment Date:04/20/2022 12:00:00 PM Scheduled Provider: Location:.[facility] Appointment Type:US Abdominal/Pelvis () Appointment Date:06/02/2022 09:45:00 AM Scheduled Provider:Anai REAGAN MD Location:[facility] Appointment Type:[facility] Follow Up Future Scheduled Tests Laboratory* Fecal WBC Lactoferrin 04/14/22 * Giardia lamblia, Direct Detection EIA 04/14/22 * O & P Exam, Routine 04/14/22 * Clostridium difficile by PCR 04/14/22 * Enteric Panel by PCR 04/14/22 * CBC w/ Auto Diff 04/14/22 * Comprehensive Metabolic Panel 04/14/22 Radiology* US Abdomen Complete 04/20/22 [facility] Evaluation + Plan note Future Appointments Appointment Date:06/02/2022 09:45:00 AM Scheduled Provider:Anai REAGAN MD Location:[facility] Appointment Type:[facility] Follow Up Diagnostic Tests Pending * O & P Exam, Routine 04/29/22 * Giardia lamblia, Direct Detection EIA 04/29/22 [facility] noteNo assessment information available [facility] Work Phone: Evaluation noteNo InformationNossm [facility] [employer] Other Evaluation note* Diagnosis Nausea- Primary Nausea alone Dysphagia, unspecified type documented in this encounter [facility] note* Diagnosis Nausea Nausea alone documented in this encounter [facility] note* Diagnosis Dysphagia, unspecified type Gastroparesis History of Ramiro fundoplication Personal history of surgery to other organs [facility] Diagnosis Gastroparesis- Primary Malnutrition of moderate degree (HCC) Malnutrition of moderate degree Gastro-esophageal reflux disease without esophagitis Esophageal reflux Overweight (BMI 25.0-29.9) Overweight Dietary counseling and surveillance Dietary surveillance and counseling documented [facility]* Diagnosis Gastroparesis- Primary [facility] Narrative - Reported* Type Description Date Medical History mitral valve prolapse Medical History gallstones Medical History Acid reflux Medical History Hiatal Hernia Medical History headache Surgical History hysterectomy Surgical History cholecystectomy Surgical History hiatal hernia repair Hospitalization History see above Hospitalization History kindey infections hospit alized x3 [employer] Other Hospital course Narrative No data available for this section [facility] Discharge instructions No data available for this section [facility] Additional Instructions Follow-up with your primary care doctor Return to ED if develop worsening symptoms or [facility] Work Phone: Hospital Discharge instructions Additional Instructions If your symptoms return/worsen or you develop any further concerns or symptoms please see your doctor or return to the emergency department immediately. Please be sure to continue follow-up with the goal umpire and with your scheduled EGD and further testing.[facility] Work Phone: Progress note No data available for this section [facility] (narrative)* Diagnostic Procedure Only (Routine) - Authorized Specialty Diagnoses / Procedures Referred By Contac t Referred To Contact MOLECULAR & FUNCTIONAL IMAGING Diagnoses Nausea Procedures NM GASTRIC EMPTYING SOLID GASTRIC EMPTYING STUDY Marques Bradley MD [address] [place] [address] Molecular & Functional Imaging [address] [place] [address] Referral ID Status Reason Start Date Expiration Date Visits Requested Visits Authorized [id number] Authorized Auto-Generat ed Referral 05/16/2023 06/14/2024 1 1 * Outpatient Procedure (Routine) - Authorized Specialty Diagnoses / Procedures Referred By Eileen t Referred To Contact [facility] Diagnoses Nausea Procedures MANOMETRY ESOPHAGEAL ESOPHAGEAL MOTILITY STUDY W/INTERP&RPT Marques Bradley MD [address] [place] [address] [address] Referral ID Status Reason Start Date Expiration Date Visits Requested Visits Authorized [id number] Authorized Auto-Generat ed Referral 05/16/2023 05/16/2024 1 1 [facility] for referral (narrative)* Outpatient Procedure (Routine) - Closed Specialty Diagnoses / Procedures Referred By [facility] Referred To Contact [facility] Diagnoses Dysphagia, unspecified type Gastroparesis History of Ramiro fundoplication Procedures EGD - THERAPEUTIC, EUS, OR TUBE INTERVENTIONS ESOPHAGOGASTRODUODENOSCOPY TRANSORAL DIAGNOSTIC STOMACH SURGERY PROCEDURE UNLISTED Marques Bradley MD [address] [place] [address] [address] Referral ID Status Reason Start Date Expiration Date V isits Requested Visits Authorized [id number] Closed Auto-Generate d Referral 05/27/2023 05/27/2024 1 1 [facility] for referral (narrative)* Outpatient Procedure (Routine) - Authorized Specialty Diagnoses / Procedures Referred [facility] Referred To Contact [facility] Diagnoses Gastroparesis Procedures EGD - THERAPEUTIC, EUS, OR TUBE INTERVENTIONS ESOPHAGOGASTRODUODENOSC OPY TRANSORAL DIAGNOSTIC STOMACH SURGERY PROCEDURE UNLISTED Marques Bradley MD [address] [place] [address] [address] Referral ID Status Reason Start Date Expiration Date Visits Requested Visits Authorized [id number] Authorized Auto-Generat ed Referral 3 07/29/2024 1 1 [facility] for visit Narrative* Outpatient Procedure (Routine) - Closed Specialty Diagnoses / Procedures Referred By Contsavanah t Referred To Contact [facility] Diagnoses Dysphagia, unspecified type Gastroparesis History of Ramiro fundoplication Procedures EGD - THERAPEUTIC, EUS, OR TUBE INTERVENTIONS ESOPHAGOGASTRODUODENOSCOPY TRANSORAL DIAGNOSTIC STOMACH SURGERY PROCEDURE UNLISTED Marques Bradley MD [address] [place] [address] [facility] [address] [place] [address] Referral ID Status Reason Start Date Expiration Date V isits Requested Visits Authorized [id number] Closed Auto-Generate d Referral 05/27/2023 05/27/2024 1 1 [facility] Summary Purpose Family History No [...] Hospital Course Note MR#: [id number] [facility] Pt. Name: Constantino Cardoso Admitted: 08/13/2019 [...] a 49-year-old female, who was transferred to [facility] from [facility] with acute abdominal pain. The pain has started on Tuesday while at work. 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 The pain feels similar to when she was here in April during her stay. During that time, she was told there was nothing left for Dr. Mortensen to do and she has been following up with GI specialist in [place]. She is actually due to have an EGD on August 22, 2019. She has been having nausea, but no vomit (more content not included)... Chief Complaint and Reason for Visit Chief Complaint stomach pain/hx marium Chief Complaint stomach pain/hx marium R10.9 K59.00 Chief Complaint abd pain stomach pian/vomiting Additional Source Comments INFORMATION SOURCE (unrecogn ized section and content) DATE CREATED AUTHOR 06/03/2020 [facility] DATE CREATED AUTHOR AUTHOR'S ORGANIZ ATION 01/17/2023 [facility] DATE CREATED AUTHOR AUTHOR'S ORGANIZ ATION 04/02/2023 [facility] DATE CREATED AUTHOR AUTHOR'S ORGANIZ ATION 05/16/2023 [facility] DATE CREATED AUTHOR AUTHOR'S ORGANIZ ATION 06/11/2023 [facility] DATE CREATED AUTHOR AUTHOR'S ORGANIZ ATION 08/26/2023 [facility] Care Team (unrecognized sect ion and content) Team Status: Inactive Member Role Status Dates Judi Youssef PURCHASING INTERNSHIP-C Primary Care Provider Active Conner Griffith DO [...] Active Pete Thakkar DO Emergency Provider Active Acoustical Carpenter Relationship Specialty Start Date End Date Joel Alejandra PCP - General Family Medicine 04/26/18 Raaf Rangel [address] [place] [phone] Referring General Surgery 04/26/18 Acoustical Carpenter Relationship Specialty Start Date End Date Joel Alejandra PCP - General Family Medicine 04/26/18 Rafa Rangel [address] [place] [address] Referring General Surgery 04/26/18 Acoustical Carpenter Relationship Specialty Start Date End Date NyJoel Onel PCP - General Family Medicine 04/26/18 Rafa Rangel [address] [place] [phone] Referring General Surgery 04/26/18 Acoustical Carpenter Relationship Specialty Start Date End Date Ny Joel Panchal PCP - General Family Medicine 04/26/18 Rafa Rangel [address] [place] [phone] Referring General Surgery 04/26/18 Acoustical Carpenter Relationship Specialty Start Date End Date Ny Joel Panchal PCP - General Family Medicine 04/26/18 Rafa Rangel [address] [place] [address] Referring General Surgery 04/26/18 Acoustical Carpenter Relationship Specialty Start Date End Date Joel Alejandra PCP - General Family Medicine 04/26/18 Rafa Rangel [address] [place] [phone] Referring General Surgery 04/26/18 Acoustical Carpenter Relationship Specialty Start Date End Date DomenicoJoel blanco PCP - General Family Medicine 04/26/18 Rafa Rangel [address] [place] [address] Referring General Surgery 04/26/18 Acoustical Carpenter Relationship Specialty Start Date End Date DomenicoJoel blanco PCP - General Family Medicine 04/26/18 Rafa Rangel [address] [place] [address] [address] [place] [phone] Referring General Surgery 04/26/18 Acoustical Carpenter Relationship Specialty Start Date End Date DomenicoJoel blanco Onel PCP - General Family Medicine 04/26/18 Rafa Rangel [address] [place] [address] [facility] [address] [place] [phone] Referring General Surgery 04/26/18 Acoustical Carpenter Relationship Specialty Start Date End Date Ny Joel Panchal PCP - General Family Medicine 04/26/18 Rafa Rangel [address] [facility] [address] [place] [address] Referring General Surgery 04/26/18 Acoustical Carpenter Relationship Specialty Start Date End Date Joel Alejandra PCP - General Family Medicine 04/26/18 [facility] [address] [address] Referring General Surgery 04/26/18 Goals (unrecognized section and content) Goals may be documented in a n alternate section REASON FOR VISIT (unrecogniz ed section and content) Reason Comments Appointment 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 - Other Reason Onset Date Comments Procedure 05/25/2023 Manometry Esopha geal Specialty Diagnoses / Procedures Referred By Contac t Referred To Contact [facility] Diagnoses Nausea Procedures MANOMETRY ESOPHAGEAL ESOPHAGEAL MOTILITY STUDY W/INTERP&RPT Marques Bradley MD [address] [place] [address] [facility] [address] [place] [address] Referral ID Status Reason Start Date Expiration Date V isits Requested Visits Authorized [id number] Closed Auto-Generate d Referral 05/16/2023 05/16/2024 1 1 Reason Comments Results Reason Comments Patient Education Assessment Source Comments (unrecognize d section and content) In the event this informatio n is protected by the Federal Confidentiality of Alcohol and Drug Abuse Patient Records regulations: The Federal rules restrict any use of the information to criminally investigate or prosecute any alcohol or drug abuse patient.[facility] Center[facility] the event this information is protected by the Federal Confidentiality of Alcohol and Drug Abuse Patient Records regulations: The Federal rules restrict any use of the information to criminally investigate or prosecute any alcohol or drug abuse patient.[facility] Center[facility] the event this information is protected by the Federal Confidentiality of Alcohol and Drug Abuse Patient Records regulations: The Federal rules restrict any use of the information to criminally investigate or prosecute any alcohol or drug abuse patient.[facility] CenterIn the event this information is protected by the Federal Confidentiality of Alcohol and Drug Abuse Patient Records regulations: The Federal rules restrict any use of the information to criminally investigate or prosecute any alcohol or drug abuse patient.[facility] CenterIn the event this information is protected by the Federal Confidentiality of Alcohol and Drug Abuse Patient Records regulations: The Federal rules restrict any use of the information to criminally investigate or prosecute any alcohol or drug abuse patient.[facility] CenterIn the event this information is protected by the Federal Confidentiality of Alcohol and Drug Abuse Patient Records regulations: The Federal rules restrict any use of the information to criminally investigate or prosecute any alcohol or drug abuse patient.[facility] CenterIn the event this information is protected by the Federal Confidentiality of Alcohol and Drug Abuse Patient Records regulations: The Federal rules restrict any use of the information to criminally investigate or prosecute any alcohol or drug abuse patient.[facility] CenterIn the event this information is protected by the Federal Confidentiality of Alcohol and Drug Abuse Patient Records regulations: The Federal rules restrict any use of the information to criminally investigate or prosecute any alcohol or drug abuse patient.[facility] CenterIn the event this information is protected by the Federal Confidentiality of Alcohol and Drug Abuse Patient Records regulations: The Federal rules restrict any use of the information to criminally investigate or prosecute any alcohol or drug abuse patient.[facility] CenterIn the event this information is protected by the Federal Confidentiality of Alcohol and Drug Abuse Patient Records regulations: The Federal rules restrict any use of the information to criminally investigate or prosecute any alcohol or drug abuse patient.[facility] CenterIn the event this information is protected by the Federal Confidentiality of Alcohol and Drug Abuse Patient Records regulations: The Federal rules restrict any use of the information to criminally investigate or prosecute any alcohol or drug abuse patient.[facility] CenterIn the event this information is protected by the Federal Confidentiality of Alcohol and Drug Abuse Patient Records regulations: The Federal rules restrict any use of the information to criminally investigate or prosecute any alcohol or drug abuse patient.[facility] FOR RECORDS PERTAINING TO PATIENTS [...] BE BASED ON THE PRIMARY CLINICAL RECORDS. [facility]. provides no warranty or guarantee of the accuracy or completeness of information in this document.
[2023-11-27] MEDS: PANTOPRAZOLE SODIUM 40 MG VIAL IV (10:24)
[2023-11-27] MEDS: ENOXAPARIN SODIUM 40 MG/0.4 ML SYRINGE SUBQ (10:24)
[2023-11-27] MEDS: LACTATED RINGER'S SOLUTION 1,000 ML 150 ML IV ×3 (10:24→23:48)
[2023-11-27] MEDS: CEFTRIAXONE 1,000 MG in 0.9 % SODIUM CHLORIDE 50 ML 100 MG IV (10:25)
--- NOTE | 2023-11-27 10:43 | PM.GSCN ---
History of Present Illness Consult details Consult date: 11/27/23 Reason for consult: abdominal pain Requesting physician: Adithya Quiros Narrative: Oly Mendiola is a 53-year-old female who presented to the Emergency Department today with abdominal pain and nausea which is chronic in nature.she was hospitalized here three weeks ago for the same and spent overnight observation and responded to conservative therapy. She refused an NG tube in the Emergency Department today. She has an extensive history in that he has been hospitalized at [facility] in March 2023 and had endoscopy by Dr. Sarmiento (gastrointestinal) and then was referred to the [facility] to Dr. Bradley and had an esophageal band placed? She complains of difficulty swallowing at times. She had a previous hiatal hernia repair performed by Dr. Adair in [place] in two thousand nineteen and has had problems since that time. She's had a prior open cholecystectomy as well as total abdominal hysterectomy years ago. She uses me tenderizer and MiraLAX in order to induce bowel movements. She denies any melena or hematochezia or hematemesis unusual weight loss. 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 Denies tobacco or alcohol use. Review of Systems ROS Status of ROS 10 or more systems reviewed and unremarkable except as noted in history and below [facility] Medical History (Updated 11/27/23 @ 08:29 by Heidy Robert MD) GERD (gastroesophageal reflux disease) ?K21.9 - Gastro-esophageal reflux disease without esophagitis (ICD-10) Elevated troponin ?R77.8 - Other specified abnormalities of plasma proteins (ICD-10) Chronic upper abdominal pain ?R10.10 - Upper abdominal pain, unspecified (ICD-10) ?G89.29 - Other chronic pain (ICD-10) Epigastric abdominal pain ?R10.13 - Epigastric pain (ICD-10) Abdominal pain, chronic, generalized ?R10.84 - Generalized abdominal pain (ICD-10) ?G89.29 - Other chronic pain (ICD-10) Headache, migraine ?G43.909 - Migraine, unspecified, not intractable, without status migrainosus (ICD-10) Gastroparesis ?K31.84 - Gastroparesis (ICD-10) Mitral valve disorder ?I05.9 - Rheumatic mitral valve disease, unspecified (ICD-10) Surgical History 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 ?K95.89 - Other complications of other bariatric procedure (ICD-10) ?K22.4 - Dyskinesia of esophagus (ICD-10) History of hernia surgery ?Z98.890 - Other specified postprocedural states (ICD-10) ?Z87.19 - Personal history of other diseases of the digestive system (ICD-10) FH: cholecystectomy ?Z83.79 - Family history of other diseases of the digestive system (ICD-10) H/O: hysterectomy ?Z90.710 - Acquired absence of both cervix and uterus (ICD-10) Family History Father Family history of myocardial infarction Family history of cancer Grandmother Family history of diabetes mellitus Family history of stroke Sister Family history of hypertension Social History Within the past year, how often did you have a drink containing alcohol: never Within the past year, how many standard drinks containing alcohol did you have on a typical day: 1 or 2 Within the past year, how often did you have six or more drinks on one occasion: never Total score: 0 Score interpretation: A score less than 3 is consistent with normal alcohol consumption. 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 Known occupational exposures/hazards: No Highest level of school completed/degree received: high school graduate Do you want help with school or training: No Are you now , , , , never or living with a partner: In a typical week, how many times do you talk on the telephone with family, friends, or neighbors: 3 or more times per week How often do you get together with friends or relatives: 3 or more times per week How often do you attend congregation or synagogue services: never Do you belong to any clubs or organizations such as congregation groups unions, fraternal or athletic groups, or school groups: no Total score: 2 Score interpretation: A score of greater than or equal to 2 indicates the lowest level of social isolation. Little interest or pleasure in doing things: not at all Feeling down, depressed, or hopeless: not at all Feel stressed/tense/nervous/anxious/difficulty sleeping: not at all Due to disability, difficulty making decisions: No Do you think of yourself as: straight/heterosexual Gender Identity: female Meds Home Medications and Allergies Home Medications ?Medication ?Instructions ?Recorded ?Confirmed ?Type cefdinir 300 mg capsule 300 mg PO BID 11/27/23 11/27/23 History dicyclomine 20 mg tablet 20 mg PO QID 11/27/23 11/27/23 History Allergies Allergy/AdvReac Type Severity Reaction Status Date / Time cyclobenzaprine Allergy Severe Anaphylaxis Verified 11/27/23 06:38 [From Flexeril] Penicillins Allergy Intermediate Hives Verified 11/27/23 06:38 Exam Constitutional Vital Signs, click to edit/add: Last Vital Signs Temp 97.7 F 11/27/23 09:48 Pulse 64 11/27/23 09:48 Resp 18 11/27/23 09:48 BP 158/82 H 11/27/23 09:48 Pulse Ox 97 11/27/23 09:48 O2 Del Method Room Air 11/27/23 09:52 Documenting provider has reviewed patient's vital signs: yes Common normals: no apparent distress, average body habitus, oriented x3, healthy appearing, alert and well nourished General appearance: cooperative, comfortable, well kempt and well developed Respiratory Common normals: normal respiratory effort and clear to auscultation bilaterally Auscultation: clear to auscultation bilaterally Cardio Common normals: regular rate and regular rhythm Rate: regular rate Rhythm: regular rhythm GI Common normals: Normal to inspection, nondistended, normoactive bowel sounds present, soft to palpation, non-tender and no masses Auscultation: hypoactive bowel sounds Palpation: soft Extremity Common normals: normal to inspection and full ROM Neuro Common normals: oriented x3, CN's II-XII intact bilaterally and moves all extremities Results Labs Labs: Abnormal lab results 11/27/23 11/27/23 Range/Units 06:45 06:48 RBC 3.79 L (4.20-5.40) 10^6/uL Hgb 11.0 L (12.0-16.0) g/dL Hct 35.4 L (36.0-48.0) % MPV 9.4 L (9.5-13.5) fL BUN 25.0 H (7.0-18.0) mg/dL Alkaline Phosphatase 135 H (46-116) U/L Ur Specific [place] >=1.030 A (1.005-1.025) Urine Occult Blood Small A (NEGATIVE) Urine RBC 2-5 A (0-2) #/HPF Ur Squamous Epith Cells Few A (NONE/RARE) #/LPF Urine Bacteria Small A (NONE SEEN) #/HPF Urine Mucus Moderate A (NONE SEEN) Diabetes panel 11/27/23 Range/Units 06:48 Sodium 141 (136-145) mmol/L Potassium 3.5 (3.5-5.1) mmol/L Chloride 104 (98-107) mmol/L Carbon Dioxide 27.2 (21.0-32.0) mmol/L BUN 25.0 H (7.0-18.0) mg/dL Creatinine 0.83 (0.55-1.02) mg/dL Glucose 83 (74-106) mg/dL Calcium 9.0 (8.5-10.1) mg/dL AST 19 (15-37) U/L ALT 25 (14-59) U/L Alkaline Phosphatase 135 H (46-116) U/L Total Protein 7.0 (6.4-8.2) g/dL Albumin 3.4 (3.4-5.0) g/dL Calcium panel 11/27/23 Range/Units 06:48 Calcium 9.0 (8.5-10.1) mg/dL Albumin 3.4 (3.4-5.0) g/dL Pituitary panel 11/27/23 Range/Units 06:48 Sodium 141 (136-145) mmol/L Potassium 3.5 (3.5-5.1) mmol/L Chloride 104 (98-107) mmol/L Carbon Dioxide 27.2 (21.0-32.0) mmol/L BUN 25.0 H (7.0-18.0) mg/dL Creatinine 0.83 (0.55-1.02) mg/dL Glucose 83 (74-106) mg/dL Calcium 9.0 (8.5-10.1) mg/dL Adrenal panel 11/27/23 Range/Units 06:48 Sodium 141 (136-145) mmol/L Potassium 3.5 (3.5-5.1) mmol/L Chloride 104 (98-107) mmol/L Carbon Dioxide 27.2 (21.0-32.0) mmol/L BUN 25.0 H (7.0-18.0) mg/dL Creatinine 0.83 (0.55-1.02) mg/dL Glucose 83 (74-106) mg/dL Calcium 9.0 (8.5-10.1) mg/dL Total Bilirubin 0.3 (0.2-1.0) mg/dL AST 19 (15-37) U/L ALT 25 (14-59) U/L Alkaline Phosphatase 135 H (46-116) U/L Total Protein 7.0 (6.4-8.2) g/dL Albumin 3.4 (3.4-5.0) g/dL All other labs normal. Imaging Abdomen CT scan report/results: report reviewed Assessment and Plan Assessment and Plan (1) Partial obstruction of small intestine: (2) Constipation: (3) Ileus: (4) Nausea and vomiting: (5) 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: (6) History of hernia surgery: (7) FH: cholecystectomy: (8) H/O: hysterectomy: Plan nothing by mouth and obtain esophagram with small bowel follow-through to rule out bowel obstruction or obstruction of her distal esophagus and she has chronic problems after having had hiatal hernia repaired by Dr. Adair in two thousand nineteen and then having an gastric band? By Dr. Bradley at the [facility]. We are trying to obtain medical records from the [facility]. I will be off call tomorrow morning at 8 AM and the surgeon on-call can take over. There is nothing acutely surgical at this time.
--- NOTE | 2023-11-27 11:23 | FL_ITS ---
The [address] [address] Patient Name: CONSTANTINO CARDOSO MRN: [id number] date: 1970 Sex: F Assigned Patient Location: [place] Current Patient Location: [place] Accession/Order Number: [id number] Exam Date: 11/27/2023 09:00 Report Date: 11/28/2023 11:52 At the request of: GUILLERMO HALE Procedure: FL small bowel follow through EXAMINATION: FL small bowel follow through HISTORY: sbo/history of esophageal band esophagram as well COMPARISON: No relevant comparison available. TECHNIQUE: Small bowel series was performed in the usual manner. No consumer loan underwriter abdominal radiograph was performed. 15 minute, 30 minute, 45 minutes, 60 minutes, 120 minute images FINDINGS: DUODENUM: Normal. No ulceration or diverticulum. JEJUNUM: Normal. Normal motility. No obstruction or visible lesion. ILEUM: Normal. Normal motility. No obstruction or visible lesion. OTHER: Negative. FL/FL small bowel follow through IMPRESSION: Normal small bowel follow-through Electronically authenticated by: CASSANDRA PUENTE Date: 11/28/2023 11:52
--- NOTE | 2023-11-27 13:55 | ECG_ITS ---
The [facility] Test Date: 2023-11-27 Pat Name: CONSTANTINO CARDOSO Department[facility] Gender: Female Hired Help: : 1970 Requested By: STEPHANIE YOUSSEF Order Number: [id number] Reading MD: SU GARLAND Measurements Intervals [place] Rate: 43 P: 31 AK: 145 QRS: 23 QRSD: 96 T: 43 QT: 485 QTc: 411 Interpretive Statements SINUS BRADYCARDIA Compared to ECG 06/06/2023 09:07:31 Sinus rhythm no longer present Electronically Signed On 11-27-2023 20:52:07 EDT by SU GARLAND
[2023-11-27] MEDS: KETOROLAC TROMETHAMINE 30 MG/ML VIAL IVP (18:12)
[2023-11-28] VITALS (15 sets, daily range): BP systolic 118–148; BP diastolic 75–86; PULSE 40–110; RESP 16–18; TEMP 36.4–36.7; O2SAT 93–97
--- NOTE | 2023-11-28 | FL_ITS ---
The [address] [address] Patient Name: CONSTANTINO CARDOSO MRN: [id number] date: 1970 Sex: F Assigned Patient Location: Current Patient Location: Accession/Order Number: [id number] Exam Date: 11/28/2023 09:00 Report Date: 11/28/2023 10:46 At the request of: GUILLERMO HALE Procedure: FL barium swallow EXAMINATION: FL barium swallow, FL cineradiography HISTORY: SBO, PREVIOUS ESOPHAGEAL SURGERY COMPARISON: No relevant comparison available. TECHNIQUE: Esophagram was performed. The patient was given crystals with water following by contrast bolus is. Overhead images were taken. FINDINGS: ESOPHAGUS: Rapid tapering of the distal esophagus, this area filled out during real-time and likely does not represent a mass. Small amount of gastroesophageal reflux. Tertiary nonpropulsive contractions STOMACH: Hiatal hernia, I cannot determine if this is paraesophageal or sliding FL/FL barium swallow IMPRESSION: Tertiary nonpropulsive esophageal contractions Hiatal hernia Small amount of reflux Electronically authenticated by: CASSANDRA PUENTE Date: 11/28/2023 10:46
[2023-11-28] MEDS: KETOROLAC TROMETHAMINE 30 MG/ML VIAL IVP ×2 (00:12→08:45)
[2023-11-28 05:34] LABS: Basophils Percent Auto 0.6 % (0.2-2.0); Eosinophils Absolute Auto 0.2 10^3/uL (0.0-0.7); Eosinophils Percent Auto 4.4 % (0.9-7.0); Hematocrit 34.3 % (36.0-48.0); Hemoglobin 10.7 g/dL (12.0-16.0); Lymphocytes Absolute Auto 1.5 10^3/uL (1.2-3.8); Lymphocytes Percent Auto 42.7 % (20.5-60.0); Mean Corpuscular HGB Conc 31.2 g/dL (29.9-35.2); Mean Corpuscular Hemoglobin 28.8 pg (26.7-34.0); Mean Corpuscular Volume 92.2 fL (81.0-99.0); Mean Platelet Volume 9.6 fL (9.5-13.5); Monocytes Absolute Auto 0.3 10^3/uL (0.3-0.8); Monocytes Percent Auto 6.9 % (1.7-12.0); Neutrophils Absolute Auto 1.6 10^3/uL (1.4-6.5); Neutrophils Percent Auto 45.4 % (43.0-75.0); Platelet Count 308 10^3/uL (150-450); Red Blood Count 3.72 10^6/uL (4.20-5.40); Red Cell Distribution Width 13.1 % (11.0-15.0); White Blood Count 3.6 10^3/uL (4.0-11.0)
[2023-11-28 06:06] LABS: Alanine Aminotransferase 22 U/L (14-59); Albumin Globulin Ratio 0.9; Albumin Level 2.8 g/dL (3.4-5.0); Alkaline Phosphatase 122 U/L (46-116); Anion Gap 13.4; Aspartate Amino Transferase 14 U/L (15-37); Bilirubin Total 0.6 mg/dL (0.2-1.0); Calcium 8.7 mg/dL (8.5-10.1); Carbon Dioxide 26.4 mmol/L (21.0-32.0); Chloride 107 mmol/L (98-107); Estimated GFR (African America >60 (>=60); Estimated GFR (Non-African Ame >60 (>=60); Globulin 3.2 g/dL; Glucose 87 mg/dL (74-106); Magnesium 1.7 mg/dL (1.8-2.4); Potassium 3.8 mmol/L (3.5-5.1); Sodium 143 mmol/L (136-145)
[2023-11-28] MEDS: LACTATED RINGER'S SOLUTION 1,000 ML 150 ML IV (06:07)
--- NOTE | 2023-11-28 07:41 | P.PN_ITS ---
Progress Note: Subjective Subjective Interval history: Patient overall feels somewhat better, still with persisting nausea, feels like she needs to have a bowel movement but has been unable to do so Exam Constitutional Vital Signs, click to edit/add: Last Vital Signs Temp 97.6 F 11/28/23 07:27 Pulse 47 L 11/28/23 07:27 Resp 18 11/28/23 07:27 BP 139/86 11/28/23 07:27 Pulse Ox 97 11/28/23 07:27 O2 Del Method Room Air 11/28/23 07:27 Documenting provider has reviewed patient's vital signs: yes Common normals: apparent distress (Mild distress due to pain) Chest Common normals: inspection of chest normal Respiratory Common normals: normal respiratory effort and no retractions Cardio Common normals: regular rate and regular rhythm GI Common normals: Normal to inspection, nondistended, normoactive bowel sounds present and soft to palpation; tender (Mild diffuse tenderness, no rebound tenderness) Progress Note: Objective Labs Labs: Short CBC 11/28/23 Range/Units 04:35 WBC 3.6 L (4.0-11.0) 10^3/uL Hgb 10.7 L (12.0-16.0) g/dL Hct 34.3 L (36.0-48.0) % Plt Count 308 (150-450) 10^3/uL BMP 11/28/23 04:35 Sodium 143 Potassium 3.8 Chloride 107 Carbon Dioxide 26.4 BUN 8.0 Creatinine 0.73 Glucose 87 Calcium 8.7 Liver Function 11/28/23 Range/Units 04:35 Total Bilirubin 0.6 (0.2-1.0) mg/dL AST 14 L (15-37) U/L ALT 22 (14-59) U/L Alkaline Phosphatase 122 H (46-116) U/L Albumin 2.8 L (3.4-5.0) g/dL Progress Note: A&P Assessment and Plan (1) Partial obstruction of small intestine: Assessment and Plan: Partial bowel obstruction-upper GI small bowel series this morning. If that is clear she can eat (2) Nausea and vomiting: Assessment and Plan: Zofran for nausea (3) GERD (gastroesophageal reflux disease): Assessment and Plan: IV proton x-ray read looks (4) Gastroparesis: Assessment and Plan: Long-term issue secondary to multiple surgeries in the past. Plan Added diagnosis: Moderate protein, nutrition-diet management Mild neutropenia-monitor daily Iron deficiency anemia-continue to monitor Hypomagnesemia-repeat tomorrow and possible supplementation Possible discharge later today. Depends on small bowel series and if patient is able to eat. Will follow-up later.
[2023-11-28] MEDS: ENOXAPARIN SODIUM 40 MG/0.4 ML SYRINGE SUBQ (08:40)
[2023-11-28] MEDS: CEFTRIAXONE 1,000 MG in 0.9 % SODIUM CHLORIDE 50 ML 100 MG IV (11:32)
[2023-11-28] MEDS: ONDANSETRON PF 4 MG/2 ML VIAL IV (13:22)
--- NOTE | 2023-11-28 14:27 | SWNOTE1 ---
SW met with pt to discuss dc needs. Pt lives at home with . Pt voices she is independent at home and has no needs. Pt voiced she is just trying to get her health figured out. At this time she denies any discharge needs. SW to follow as needed.
--- NOTE | 2023-11-29 16:12 | CM.DCFOLLOWU ---
Person spoke with: Oly How are you feeling? Much better How is your pain? No pain Did you understand your discharge instructions? Yes Do you have any questions about your discharge instructions? No Were you given any prescriptions at discharge? Yes Were you able to get your prescriptions filled? Yes Do you understand how to take your medications as ordered? Yes Do you have any questions about your follow up appointment and do you plan to keep your follow up appointment? No appt is scheduled and do plan on going to appt Is there anything else that you would like to discuss? No Questions/Comments/Concerns/Other:
--- OUTSIDE RECORDS SUMMARY | 2023-12-02 09:24 | XMS_ITS | CCD ---
Author Organization [facility] Care Team Providers Care Allergist Name Role Phone LEONA MORTENSEN Admitting Unavailable LEONA MORTENSEN Attending Unavailable KEVIN HERRERA Primary Care Unavailable KEVIN HERRERA Referring Unavailable [place] Procedure Practitioner Unavailab ORESTES Cruz Surgeon Unavailable JUDI YOUSSEF Primary Care Physician DONI Youssef Primary Care Provider DO Conner Griffith Emergency Provider Jennie Ayon Unavailable MD Jennie Ayon Attending Provider [phone] KLAUDIA, DR JOHNATHAN Botello Attending Unavailibis RUDOLPH, DR JOHNATHAN Botello Consulting Unavailibis RUDOLPH, DR JOHNATHAN Botello Admitting Unavailibis YOUSSEF, JUDI Primary Care Unavailable MIKAEL, JUDI Primary Care [...] Unavailable SHAIKH Juan Luis DAVIS Admitting Unavailable MIKAEL, JUDI Primary Care Unavailable DR GUILLERMO VANESSA [...] Admitting Unavailable MIKAEL, JUDI Primary Care Unavailable TERRIE, DR RUSH Hairston Consulting Unavailable MIKAEL, JUDI [...] Unavailable MIKAEL, JUDI Consulting Unavailable LINDA Youssef-[facility] Primary [facility] Provider DO Conner Griffith Emergency Provider DO Pete Thakkar Emergency Provider [phone] [facility] Primary Care Provider Rafa Rangel Unavailable Renny Gan Unavailable Mikael, Judi Joan Primary Care Unavailable Gladis, Conner M Admitting Unavailable Gladis, Conner M Attending Unavailable Mikael, [facility] Primary Care Unavailable Asaad, Imad Admitting Unavailable Asaleo, Imad Attending Unavailable Renny Gan Consulting Unavailabl e [facility] Primary Care Unavailable Deann Montalvo Attending Unavailable Alahmad, Alaa Admitting Unavailable Mikael, [facility] Primary Care Unavailable Gladis, Conner M Admitting Unavailable GladisConner [place] Attending Unavailable Mikael, [facility] Primary Care Unavailable Pete Thakkar Admitting Unavailable Pete Thakkar Attending Unavailable Samuel Estrella Attending Unavailable Monique Marquez Attending Unavailable Anai REAGAN Attending Unavailable Zabrina Patton Attending Unavailable MARQUES BRADLEY Referring Unavailable [facility] Primary Care Unavailable [facility] Primary Care Unavailable KROHMARQUES Referring Unavailable KROH, MARQUES Patel Attending Unavailable IMER CHERRY Referring Unavailable [facility] Primary Care Unavailable [facility] Primary Care Unavailable KROH, MARQUES D Referring Unavailable KAITLYN TORRES Attending Unavailable KROH, MARQUES Patel Referring Unavailable [facility] Primary Care Unavailable MELISSA MONTALVO Attending Unavailable KROH, MARQUES Patel Referring Unavailable [facility] Primary Care Unavailable SLY HEART Attending Unavailable KROHMARQUES Referring Unavailable [facility] Primary Care Unavailable BRENNEN SHAW Attending Unavailable Allergies Allergy Classification Reported Allergen(s) Allergy Type Date of Onset Reaction(s) Facility (5 sources) cyclobenzaprine; Translations: [CYCLOBENZAPRINE] Drug Allergy 04-28-20 18 Swelling of Lip/Tongue/Thr oat [facility] Repository (6 sources) Penicillins Drug allergy (disorder) 09-02-20 15 Rash [facility] Repository (20 sources) cyclobenzaprine; Translations: [cyclobenzaprine] Drug Allergy 04-28-20 18 Pharyngeal swelling (finding), Swelling [facility] (20 sources) Penicillin; Translations: [penicillin] Drug Allergy 04-28-20 18 Swelling (morphologic abnormality), Swelling [facility] (8 sources) penicillAMINE Drug Allergy rash [employer] Other (2 sources) cyclobenzaprine Drug Allergy 03-23-20 16 [facility] Repository (1 source) traMADol Drug Allergy [facility] Repository (1 source) traMADol Drug Allergy [facility] Repository (1 source) cyclobenzaprine Drug Allergy 03-23-20 23 [facility] Repository (1 source) Penicillins Drug allergy (disorder) 03-23-20 23 [facility] Repository Medications Current Medications Medication Drug Class(es) [...] day(s), # 120 cap(s), Refills(s) 11, Pharmacy: [facility]/pharmacy #[id number], 170, cm, 05/05/21 14:15:00 EDT, Height/Length Dosing, 83.1, kg, 05/05/21 14:15:00 EDT, Weight Dosing Start Date: 05/05/21 Stop Date: 04/30/22 Status: Ordered Start: 09-20-2020 take 2 capsules by m out four times daily Bentyl 10 mg Cap 20 mg = 2 cap(s), Oral, QID, # 20 cap(s), Refills(s) 0, Pharmacy: [facility]/pharmacy #[id number], 170, cm, 09/20/20 16:03:00 EST, Height/Length [...] day(s), # 90 tab(s), Refills(s) 0, Pharmacy: [facility]/pharmacy #[id number], 170, cm, 01/28/22 13:40:00 EDT, Height/Length [...] pain, # 20 tab(s), Refills(s) 0, Pharmacy: [facility]/pharmacy #[id number], 170, cm, 02/19/23 0:56:00 EDT, Height/Length [...] day(s), # 90 cap(s), Refills(s) 1, Pharmacy: [facility]/pharmacy #[id number], 170, cm, 04/14/22 14:53:00 EDT, Height/Length [...] Daily, # 90 cap(s), Refills(s) 3, Pharmacy: [facility]/pharmacy #[id number], 170, cm, 01/11/22 9:17:00 EDT, Height/Length Dosing, 83, kg, 01/11/22 9:17:00 EDT, Weight Dosing Start Date: 01/11/22 Status: Ordered omeprazole 40 mg Cap-DR (1 source) Start: 2 End: 2 take 1 capsule by mouth once daily omeprazole 40 mg Cap-DR 40 mg = 1 cap(s), Oral, Daily, X 90 day(s), # 90 cap(s), Refills(s) 0, Pharmacy: [facility]/pharmacy #[id number], 170, cm, 01/28/22 13:40:00 EDT, Height/Length [...] by mouth twice daily. polyethylene glycol 3350 53759 mg powder for oral solution (1 source) [...] Nausea/Vomiting, # 12 tab(s), Refills(s) 0, Pharmacy: [facility]/pharmacy #[id number], 170, cm, 09/20/20 16:03:00 EST, Height/Length Dosing, 87.5, kg, 09/20/20 16:03:00 EST, Weight Dosing Start Date: 09/20/20 Status: Ordered Completed/Discontinued Medications Medication Drug Class(es) Dates Sig (Normalized) Sig (Original) acetaminophen 325 mg / HYDROcodone bitartrate 5 mg oral tablet (6 sources) Opioid Agonist Start: 06-21-2019 End: 02-15-2023 take 1 tablet by mouth every six hours Hydrocodone-Acetami nophen ([place]) 5-325 mg Tablet Discontinued 1 TAB PO Q6H June 21, 2019 12:00am February 15, 2023 9:46am Start: 11-12-2018 End: 01-30-2019 take 1 tablet by mouth every four to six hours Hydrocodone-Acetaminophen ([place]) 5-325 mg tablet Discontinued 1 TAB PO [...] Start: 04-13-2018 take 1 tablet by ana four times daily Reglan 10 mg Tab 10 mg = 1 tab(s), Oral, QID, # 120 tab(s), Refills(s) 0, Pharmacy: [facility]/pharmacy #[id number], 170, cm, 07/22/22 14:33:00 EST, Height/Length [...] 05-10-2019 Chronic Other aftercare (1 source) Other terminal clerk (current) drug therapy; Translations: [OTH DETENTION CURRENT [...] lower extremities with pain; Translations: [VARICOSE VNS MCAARIO LOW EXTREM W/PAIN] Onset: 09-10-2022 Episodic Viral infection (1 source) Viral infection, unspecified; Translations: [VIRAL INFECTION UNSPECIFIED] Onset: 07-06-2022 Episodic Results Test Name Value Interpretation Reference Range Facility ANES POSTPROC EVALon 023 ANES POSTPROC EVAL HNO ID: [id number] Author: Carlota Jeffrey MD Service: ? Author Type: Anesthesiologist Type: Anesthesia Postprocedure Evaluation Filed: 08/25/2023 5:35 PM Note Text: POST ANESTHESIA EVALUATION NOTE : 1970 Procedure Summary Date: 08/25/23 Room / Location: Gastroenterology Anesthesia Start: 1444 Anesthesia Stop: 1552 Procedure: EGD - THERAPEUTIC, EUS, OR TUBE INTERVENTIONS Diagnosis: Gastroparesis (OTHER) Scheduled Providers: Marques Bradley MD; Carlota Jeffrey MD; Vanessa Mcmillan APRN.SEXUAL HEALTH PHYSICIAN Responsible Provider: Carlota Jeffrey MD Anesthesia Type: [...] August 25, 2023 TIME: 5:35 PM CSN: [id number] [facility] ANES PRE-OPon 08-25-2023 ANES PRE-OP HNO ID: [id number] Author: Carlota Jeffrey MD Service: ? Author [...] August 25, 2023 TIME: 11:46 AM CSN: [id number] [facility] HISTORY PHYSICALon HISTORY PHYSICAL HNO ID: [id number] Author: Gavi Bourgeois MD Service: General Surgery [...] patient's care with the resident. Signature: Marques Bardley MD Date: 08/26/2023 Time: 9:38 AM ENDOSCOPY [...] DATE: August 25, 2023 TIME: 6:57 AM [facility] NURSING PROGon 08-25-2023 NURSING PROG HNO ID: [id number] Author: Melody Walter, RN Service: Nursing Author [...] None Electronically Signed By: Melody Walter RN [facility] NURSING PROG HNO ID: [id number] Author: Pamela Osuna RN Service: ? Author [...] By: Pamela Navarro RN In Department: GASTROENTEROLOGY [facility] Magda 07-22-2023 [facility]bright box[facility] ARIELLE CARDOSOCHRIS ([id number]) 1970 F Date Time Provider Department 07/22/23 [...] Status:Closed by EVELYN BLACK on 07/22/23 [facility] ANES POSTPROC EVALon 023 ANES POSTPROC EVAL HNO ID: [id number] Author: Sly Heart MD Service: ? Author [...] Scheduled Providers: Marques Bradley MD; Amanda Bernard APRN.SEXUAL HEALTH PHYSICIAN; Sly Heart MD Responsible Provider: Sly Heart [...] July 14, 2023 TIME: 12:26 PM CSN: [id number] [facility] ANES PRE-OPon 07-14-2023 ANES PRE-OP HNO ID: [id number] Author: Sly Heart MD Service: ? Author Type: Anesthesiologist Type: Anesthesia Preprocedure Evaluation Filed: 07/14/2023 9:19 AM Note Text: ANESTHESIOLOGY DAY OF SURGERY NOTE : 1970 Procedure Information Date/Time: 07/14/23929 Scheduled providers: Marques Bradley MD; Amanda Bernard APRN.SEXUAL HEALTH PHYSICIAN; Sly Heart MD Procedure: EGD - THERAPEUTIC, [...] Surgery/Procedure. SIGNATURE: Sly Heart MD PATIENT NAME: Cnostantino Cardoso DATE: July 14, 2023 TIME: 9:11 AM CSN: [id number] [facility] EGD - THERAPEUTIC, EUS, OR T UBE INTERVENTIONSon 07-14-2023 [facility] HISTORY PHYSICALon HISTORY PHYSICAL HNO ID: [id number] Author: Raúl Quintero MD Service: General Surgery [...] medications for this visit. 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 Mehrdad Heart paged : Patient Constantino Cardoso in post bed 10: Complaining of 10/10 abdominal pain (gas), mild nausea. Any further orders? Thanks! Mari Spaulding RN BSN [facility] NURSING PROG HNO ID: [id number] Author: Mónica Spaulding RN Service: Nursing Author [...] Signed By: Mónica Spaulding RN BSN [facility] NURSING PROG HNO ID: [id number] Author: Candace Jaramillo RN Service: ? Author [...] By: Candace Jaramillo RN In Department: GASTROENTEROLOGY [facility] SURGICAL PATHOLOGYon 023 ADDENDUM 1: [facility] Comment on above: Order Comment: Speci men Type: TISSUE SPECIMENOrdering Facility: [facility] Address: [address] [place] [address] Result Comment: Give n the background of chronic gastritis a Helicobacter pylori immunostain was performed on block A and is negative for Helicobacter pylori organisms. AEB 07/20/2023 Laboratory Developed Test (LDT) Disclaimer: Performance characteristics of immunohistochemical, immunofluorescent and chromogenic in-situ hybridization tests have been determined by the performing laboratory within [facility]???s [facility] Pathology and Laboratory Medicine [place] ([facility], [facility], [facility], [facility], [facility], [facility], or [facility]) in a manner consistent with CLIA [...] at 9:30 AM Performed By: #### S ####[facility] LABCL[facility] [id number] [place] [address] [place] CASE REPORT [facility] Comment on above: Order Comment: Speci men Type: TISSUE SPECIMENOrdering Facility: [facility] Address: [address] [place] [address] Result Comment: Surg [facility] Pathology Report Case: [id number] Authorizing Provider: Marques Bradley MD Collected: 07/14/2023 10:42 AM Ordering Location: Gastroenterology Received: 07/14/2023 07:34 PM Pathologist: Marilou Zacarias MD Specimen: STOMACH BIOPSY, R/O H.Pylori Performed By: #### S ####[facility] [id number] [address] OF [facility] DIAGNOSIS COMMENT Immunohistochemical stain for Helicobacter pylori is pending and will be reported as an addendum. [facility] Comment on above: Order Comment: Speci men Type: TISSUE SPECIMENOrdering Facility: [facility] Address: [address] [place] [address] Performed By: #### S ####[facility]IA [id number] [address] OF [facility] FINAL DIAGNOSIS [facility] Comment on above: Order Comment: Speci men Type: TISSUE SPECIMENOrdering Facility: [facility] Address: [address] [place] [address] Result Comment: Velma scott, biopsy: - Chronic inactive gastritis. See comment. AEB/dkclementina 07/18/2023 Performed By: #### S ####[facility] [id number] [address] [place] FINAL PERFORMING LAB [facility] Comment on above: Order Comment: Speci men Type: TISSUE SPECIMENOrdering Facility: [facility] Address: [address] [place] [address] Result Comment: Diag nostic interpretation performed at [facility], [address] [place] [address] CLIA# [id number] Forestry Faculty Member: Maurisio Ritchie M.D. Performed By: #### S ####[facility] LABIA [id number] [address] [place] GROSS DESCRIPTION [facility] Comment on above: Order Comment: Speci men Type: TISSUE SPECIMENOrdering Facility: [facility] Address: [address] [place] [address] Result Comment: A. S TOMACH BIOPSY Received in formalin are two pieces of hager, soft tissue aggregating to 0.5 x 0.2 x 0.2 cm. Totally submitted in one cassette. Two Gross examination performed at [address] July 14, 2023 11:10 PM Performed By: #### S ####[facility] [id number] [address] OF [place] Lipase Levelon 06-06-2023 Lipase [Catalytic activity/Vol] 33 U/L Normal 13-58 [facility] Comment on above: Performed By: #### 2 [id number] ####[facility] [id number] [place] [address] [facility] 05-27-2023 CNPN Telephone (GENBMI) CONSTANTINO CARDOSO ([id number]) 1970 F Date Time Provider Department 05/27/23 EVELYN BLACK GENTAO During your visit today, we recorded the [...] Status:Closed by EVELYN BLACK on 05/27/23 [facility] GASTRIC EMPTYING SOLIDon 05-26-2023 ME GASTRIC EMPTYING SOLID * * *Final Report* * * DATE OF EXAM: May 26 2023 11:11AM [facility] 0017 - ME GASTRIC EMPTYING SOLID / PROCEDURE REASON: Nausea [...] RATE OF GASTRIC EMPTYING OF SOLID MEAL. Lining Scrubber: PSCB Transcribe Date/Time: May 26 2023 11:18A Dictated by : SILVANO WELSH MD This examination was interpreted and the report reviewed and electronically signed by: SILVANO WELSH MD on May 26 2023 11:18AM EST [id number] [facility] CNNURSEon 05-25-2023 CNNURSE Nurse Visit (GASTMN) CONSTANTINO CARDOSO ([id number]) 1970 F Date Time Provider Department 05/25/23 8:30 AM NURSE GI LAB 2 GASTMN During your visit today, we recorded the following information about you: Pedro Gonzalez LPN 05/25/2023 4:15 PM Signed Name: Constantino Cardoso [facility]#: [id number] Date: 05/25/2023 ESOPHAGEAL MANOMETRY TEST Indication: Nausea [...] .Pedro Gonzalez LPN Referring Provider: MARQUES BRADLEY [[id number]] Allergies As of Date: 05/25/2023 Noted Allergy Reaction FLEXERIL (CYCLOBENZAPRINE) 04/28/2018 7 - Swelling PENICILLIN 04/28/2018 7 - Swelling Date Reviewed: 05/06/2023 Reviewed by: Judy Michaels MA - Fully Assessed Reason for Visit: Procedure [88] Cmt: Manometry Esophageal Visit Diagnosis:Nausea [R11.0] Order(s):MANOMETRY ESOPHAGEAL [48340YZL] Order #: [id number] Prescriptions as of 05/25/2023 - dicyclomine (BENTYL) [...] Encounter Status:Closed by PEDRO GONZALEZ on 05/25/23 [facility] 05-16-2023 CNPN Telephone (GENBMI) CONSTANTINO CARDOSO ([id number]) 1970 F Date Time Provider Department 05/16/23 [...] Encounter Status:Closed by EVELYN BLACK on 05/16/23 [facility] CNOVon 05-06-2023 CNOV Office Visit (GENBMI ) CONSTANTINO CARDOSO ([id number]) 1970 F Date Time Provider Department 05/06/23 8:50 AM MARQUES BRADLEY [facility] During your visit today, we recorded the [...] for internal providers or letter via the [employer] Postal Service for external providers. Chief Complaint: [...] Time: 8:15 AM Referring Provider: IMER CHERRY [[id number]] Allergies As of Date: 05/06/2023 Noted Allergy Reaction (more content not included)... [facility] CNPNon 05-02-2023 CNPN Telephone (GENBMI) CONSTANTINO CARDOSO ([id number]) 1970 F Date Time Provider Department 05/02/23 EVELYN BLACK GENBMI During your visit today, we recorded the following information about you: Evelyn Black, RN 05/04/2023 1:55 PM Addendum [facility] SPECIALTY CARE COORDINATION TELEPHONE ENCOUNTER Chief complaint AND duration dysphagia. Type of procedure: hernia repair hiatal with Dr. MORTENSEN in [place] February of 2019. Sending OP notes Nursing assessment (subjective/objective) . pain in chest area and getting worse, hard to breathe c/o nausea and oral intolerance, using miralax for BM Went to [facility] March 2023 who told her she needed a stent in her heart..but her c/o were difficulty swallowing and sent pt home and referred her to [facility] and was admitted for almost a week [...] HHR a year later @ OSH in [place] Recommendation: appt after records obtained, encouraged small [...] Encounter Status:Closed by EVELYN BLACK on 05/02/23 [facility] 04-26-2023 CNPN Telephone (GENBMI) CONSTANTINO CARDOSO ([id number]) 1970 F Date Time Provider Department 04/26/23 [...] Encounter Status:Closed by EVELYN BLACK on 04/26/23 [facility] 04-18-2023 CNPN Telephone (GENBMI) CONSTANTINO CARDOSO ([id number]) 1970 F Date Time Provider Department 04/18/23 [facility] BLACK [facility] During your visit today, we recorded the following information about you: Evelyn Black RN 04/18/2023 2:17 PM Signed [facility] SPECIALTY CARE COORDINATION TELEPHONE ENCOUNTER Contacted pt regarding a referral from Dr Martinez's office. LVM and call back number. 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 Visit: Utilization Review Nurse - Other [7742] Prescriptions as of 04/18/2023 - ciprofloxacin HCl [...] Encounter Status:Closed by EVELYN BLACK on 04/18/23 [facility] 04-07-2023 CNPN Telephone (GASTSP) CONSTANTINO CARDOSO ([id number]) 1970 F Date Time Provider Department 04/07/23 [...] Status:Closed by YANCY LOPEZ on 04/07/23 [facility] NM gastric emptying studyon 03-31-2023 NM gastric emptying study [facility] [place] [address] Nuclear Medicine Report Signed Patient: Constantino Cardoso MR#: [id number] : 1970 Acct:[id number] Age/Sex: 52 / F ADM Date: 03/26/23 Loc: Room: [address] [place] [address] Type: ADM IN Attending Dr: Deann Montalvo [...] Samuel Stone M.D.03/31/2023 10:03 AM Dictation Location: [place] [address] Transcribed By: [facility] 03/31/23 1003 Dictated By: Samuel Stone DO 03/31/23 0956 Signed By: 03/31/23 1003 [facility] Comprehensive Metabolic Pane miranda 03-29-2023 Albumin [Mass/Vol] 3.8 g/dL Normal 3.5-5.7 [facility] Comment on above: Performed By: #### C DIANN DOUGLAS #### [address] Albumin/Globulin [Mass ratio] 1.4 {ratio} [facility] Comment on above: Performed By: #### C STELLA, CMP #### [facility] [address] [place] [id number] [place] ALP [Catalytic activity/Vol] 102 U/L Normal 34-104 [facility] Comment on above: Performed By: #### C STELLA CMP #### [facility] [address] [place] [id number] [facility] ALT [Catalytic activity/Vol] 10 U/L Normal 7-52 [facility] Comment on above: Performed By: #### C STELLA CMP #### [facility] [address] [place] [address] [place] Anion gap [Moles/Vol] 10.4 mmol/L Normal 6.0-15.0 [facility] Comment on above: Performed By: #### C STELLA, CMP #### [facility] [address] AST [Catalytic activity/Vol] 14 U/L Normal 13-39 [facility] Comment on above: Performed By: #### C STELLA, CMP #### [facility] [address] Bilirubin [Mass/Vol] 0.5 mg/dL Normal 0.3-1.0 [facility] Comment on above: Performed By: #### C STELLA, CMP #### [facility] [address] Calcium [Mass/Vol] 9.0 mg/dL Normal 8.6-10.3 [facility] Comment on above: Performed By: #### C STELLA, CMP #### [facility] [address] Chloride [Moles/Vol] 103 mmol/L Normal 98-107 [facility] Comment on above: Performed By: #### C STELLA, CMP #### [facility] [address] CO2 [Moles/Vol] 28.4 mmol/L Normal 21.0-31.0 [facility] Comment on above: Performed By: #### C STELLA, CMP #### [facility] [address] [place] [address] [place] Creatinine [Mass/Vol] 0.67 mg/dL Normal 0.60-1.20 [facility] Comment on above: Performed By: #### C STELLA, CMP #### [facility] [address] [place] [address] [place] Creatinine Clr Calc Pharmacy 106.18 Normal [facility] Comment on above: Result Comment: PERF ORMED BY: [place] [address] PATHOLOGIST VENEER LAYER ROOSEVELT KEYES M.D. Performed By: #### C STELLA, CMP #### [facility] [address] [place] [address] [place] GFR/1.73 sq M.predicted MDRD (S/P/Bld) [Vol rate/Area] mL/min/{1.73_m2} [facility] Comment on above: Performed By: #### C STELLA, CMP #### [facility] [address] [place] [address] [place] Globulin (S) [Mass/Vol] 2.7 g/dL [facility] Comment on above: Performed By: #### C STELLA, CMP #### [facility] [address] Glucose [Mass/Vol] 96 mg/dL Normal 70-100 [facility] Comment on above: Result Comment: [facility] Glucose Reference Range is dependent on time and content of last meal. Glucose of more than 200 mg/dL in a nonstressed, ambulatory subject supports the diagnosis of Diabetes Mellitus. ADA recommended reference range Performed By: #### C STELLA, CMP #### [address] Potassium [Moles/Vol] 3.8 mmol/L Normal 3.5-5.1 [facility] Comment on above: Performed By: #### C STELLA, CMP #### [place] [address] [place] Protein [Mass/Vol] 6.5 g/dL Normal 6.4-8.9 [facility] Comment on above: Performed By: #### C STELLA, CMP #### [place] [address] [place] Sodium [Moles/Vol] 138 mmol/L Normal 136-145 [facility] Comment on above: Performed By: #### C STELLA, CMP #### [facility] [address] [place] [address] [place] Urea nitrogen [Mass/Vol] 8 mg/dL Normal 7-25 [facility] Comment on above: Performed By: #### C STELLA, CMP #### [address] [place] [address] [facility] [place] esophagus ugion 3 [place] esophagus ugi [facility] [address] [place] [address] Fluoroscopy Report Signed Patient: Constantino Cardoso MR#: [id number] : 1970 Acct:[id number] Age/Sex: 52 / F ADM Date: 03/26/23 Loc: Room: [address] [place] [address] Type: ADM IN Attending Dr: Deann Montalvo MD Copies to: MD Deann Blue MD Ordering Provider: Renny Gan MD Date of Service: 03/29/23 [place] esophagus ugi: NAUSEA DOUBLE CONTRAST UPPER GI SERIES CLINICAL HISTORY: Nausea vomiting. History of Ramiro fundoplication. COMPARISON: None TECHNIQUE: Double contrast upper GI series was performed. Cumulative Air Kerma in mGy: 305.03 mGy FINDINGS: Booster Pump Operator image demonstrates no acute findings. The esophagus [...] Bateman Jr., D.ONeo03/29/2023 1:23 PM Dictation Location: [place] [address] Transcribed By: [facility] 03/29/23 1323 Dictated By: Tiburcio Bateman Jr, DO 03/29/23 1317 Signed By: 03/29/23 1323 Normal [facility] Hemogram CBC Without Diffon 03-29-2023 Erythrocyte distribution width (RBC) [Ratio] 13.4 % Normal 11.9-15.3 [facility] Comment on above: Performed By: #### C BCNO, CMP #### [address] Hematocrit (Bld) [Volume fraction] 35.4 % Normal 34.0-46.4 [facility] Comment on above: Performed By: #### C BCNO, CMP #### [address] Hemoglobin (Bld) [Mass/Vol] 12.0 g/dL Normal 11.8-15.4 [facility] Comment on above: Performed By: #### C BCNO, CMP #### [address] MCH (RBC) [Entitic mass] 29.2 pg Normal 24.7-34.3 [facility] Comment on above: Performed By: #### C BCNO, CMP #### [address] MCV (RBC) [Entitic vol] 86.0 fL Normal 80-100 [facility] Comment on above: Performed By: #### C BCNO, CMP #### [address] Mean Corpuscular HGB Conc 33.9 g/dL Normal 32.0-35.0 [facility] Comment on above: Performed By: #### C BCNO, CMP #### [address] Platelet mean volume (Bld) [Entitic vol] 7.6 fL Normal 6.3-10.7 [facility] Comment on above: Result Comment: PERF ORMED BY: [place] [address] PATHOLOGIST VENEER LAYER ROOSEVELT KEYES M.D. Performed By: #### C BCNO, CMP #### [address] Platelets (Bld) [#/Vol] 288 10*3/uL Normal 150-450 [facility] Comment on above: Performed By: #### C BCNO, CMP #### [facility] [address] RBC (Bld) [#/Vol] 4.11 10*6/uL Normal 3.60-5.00 [facility] Comment on above: Performed By: #### C BCNO, CMP #### [facility] [address] [place] [id number] [facility] WBC (Bld) [#/Vol] 6.5 10*3/uL Normal 3.8-11.6 [facility] Comment on above: Performed By: #### C BCNO, CMP #### [facility] [address] XR abdomen min 2Von 03-28-20 XR abdomen min 2V [facility] [address] [place] [address] XRay Report Signed Patient: Constantino Cardoso MR#: [id number] : 1970 Acct:[id number] Age/Sex: 52 / F ADM Date: 03/26/23 Loc: Room: [address] [place] [address] Type: ADM IN Attending Dr: Deann Montalvo [...] Bateman Jr., D.O.03/28/2023 12:24 PM Dictation Location: [place] [address] Transcribed By: [facility] 03/28/23 1224 Dictated By: Tiburcio Bateman Jr, DO 03/28/23 122 Signed By: 03/28/23 1224 [facility] Complete Blood Count Auto Di ffon 03-27-2023 Basophils (Bld) [#/Vol] 0.0 10*3/uL Normal 0.0-0.2 [facility] Comment on above: Result Comment: PERF ORMED BY: [place] [address] PATHOLOGIST VENEER LAYER ROOSEVELT KEYES M.D. Performed By: #### C BC #### [address] Basophils/100 WBC (Bld) 0.5 % Normal . [facility] Comment on above: Performed By: #### C BC #### [address] Eosinophils (Bld) [#/Vol] 0.2 10*3/uL Normal 0.0-0.45 [facility] Comment on above: Performed By: #### C BC #### [address] Eosinophils/100 WBC (Bld) 4.7 % Normal . [facility] Comment on above: Performed By: #### C BC #### [address] Erythrocyte distribution width (RBC) [Ratio] 13.6 % Normal 11.9-15.3 [facility] Comment on above: Performed By: #### C BC #### [address] Hematocrit (Bld) [Volume fraction] 34.1 % Normal 34.0-46.4 [facility] Comment on above: Performed By: #### C BC #### [place] [address] [place] Hemoglobin (Bld) [Mass/Vol] 11.4 g/dL Low 11.8-15.4 [facility] Comment on above: Performed By: #### C BC #### [address] Lymphocytes (Bld) [#/Vol] 1.3 10*3/uL Normal 1.00-4.8 [facility] Comment on above: Performed By: #### C BC #### [address] Lymphocytes/100 WBC (Bld) 32.8 % Normal . [facility] Comment on above: Performed By: #### C BC #### [address] MCH (RBC) [Entitic mass] 28.9 pg Normal 24.7-34.3 [facility] Comment on above: Performed By: #### C BC #### [address] MCV (RBC) [Entitic vol] 86.0 fL Normal 80-100 [facility] Comment on above: Performed By: #### C BC #### [address] Mean Corpuscular HGB Conc 33.6 g/dL Normal 32.0-35.0 [facility] Comment on above: Performed By: #### C BC #### [address] Monocytes (Bld) [#/Vol] 0.3 10*3/uL Normal 0.0-0.8 [facility] Comment on above: Performed By: #### C BC #### [address] Monocytes/100 WBC (Bld) 7.7 % Normal . [facility] Comment on above: Performed By: #### C BC #### [address] Neutrophils (Bld) [#/Vol] 2.1 10*3/uL Normal 1.8-7.7 [facility] Comment on above: Performed By: #### C BC #### [address] Neutrophils/100 WBC (Bld) 54.3 % Normal . [facility] Comment on above: Performed By: #### C BC #### [address] NRBC% 0.1 /100{WBC} Normal 0-0.5 [facility] Comment on above: Performed By: #### C BC #### [address] Platelet mean volume (Bld) [Entitic vol] 7.8 fL Normal 6.3-10.7 [facility] Comment on above: Performed By: #### C BC #### [address] Platelets (Bld) [#/Vol] 291 10*3/uL Normal 150-450 [facility] Comment on above: Performed By: #### C BC #### [address] RBC (Bld) [#/Vol] 3.97 10*6/uL Normal 3.60-5.00 [facility] Comment on above: Performed By: #### C BC #### [address] WBC (Bld) [#/Vol] 3.9 10*3/uL Normal 3.8-11.6 [facility] Comment on above: Performed By: #### C BC #### [address] Comprehensive Metabolic Pane miranda 03-27-2023 Albumin [Mass/Vol] 3.5 g/dL Normal 3.5-5.7 [facility] Comment on above: Performed By: #### H EPATIC, CBC, BMP, LIPASE #### [address] Albumin/Globulin [Mass ratio] 1.4 {ratio} Normal [facility] Comment on above: Performed By: #### H EPATIC, CBC, BMP, LIPASE #### [address] ALP [Catalytic activity/Vol] 91 U/L Normal 34-104 [facility] Comment on above: Performed By: #### H EPATIC, CBC, BMP, LIPASE #### [address] [place] [address] [place] ALT [Catalytic activity/Vol] 10 U/L Normal 7-52 [facility] Comment on above: Performed By: #### H EPATIC, CBC, BMP, LIPASE #### [address] Anion gap [Moles/Vol] 6.9 mmol/L Normal 6.0-15.0 [facility] Comment on above: Performed By: #### H EPATIC, CBC, BMP, LIPASE #### [address] AST [Catalytic activity/Vol] 13 U/L Normal 13-39 [facility] Comment on above: Performed By: #### H EPATIC, CBC, BMP, LIPASE #### [address] Bilirubin [Mass/Vol] 0.5 mg/dL Normal 0.3-1.0 [facility] [place] Comment on above: Performed By: #### H EPATIC, CBC, BMP, LIPASE #### [address] Calcium [Mass/Vol] 8.6 mg/dL Normal 8.6-10.3 [facility] Comment on above: Performed By: #### H EPATIC, CBC, BMP, LIPASE #### [address] Chloride [Moles/Vol] 109 mmol/L High 98-107 [facility] [place] Comment on above: Performed By: #### H EPATIC, CBC, BMP, LIPASE #### [address] CO2 [Moles/Vol] 28.9 mmol/L Normal 21.0-31.0 [facility] Comment on above: Performed By: #### H EPATIC, CBC, BMP, LIPASE #### [address] Creatinine [Mass/Vol] 0.72 mg/dL Normal 0.60-1.20 [facility] Comment on above: Performed By: #### H EPATIC, CBC, BMP, LIPASE #### [facility] [address] Creatinine Clr Calc Pharmacy 97.02 [facility] Comment on above: Performed By: #### H EPATIC, CBC, BMP, LIPASE #### [facility] [address] GFR/1.73 sq M.predicted MDRD (S/P/Bld) [Vol rate/Area] mL/min/{1.73_m2} [facility] Comment on above: Performed By: #### H EPATIC, CBC, BMP, LIPASE #### [address] Globulin (S) [Mass/Vol] 2.5 g/dL [facility] Comment on above: Performed By: #### H EPATIC, CBC, BMP, LIPASE #### [address] Glucose [Mass/Vol] 104 mg/dL High 70-100 [facility] Comment on above: Result Comment: [facility] Glucose Reference Range is dependent on time and content of last meal. Glucose of more than 200 mg/dL in a nonstressed, ambulatory subject supports the diagnosis of Diabetes Mellitus. ADA recommended reference range Performed By: #### H EPATIC, CBC, BMP, LIPASE #### [address] Potassium [Moles/Vol] 3.8 mmol/L Normal 3.5-5.1 [facility] Comment on above: Performed By: #### H EPATIC, CBC, BMP, LIPASE #### [address] Protein [Mass/Vol] 6.0 g/dL Low 6.4-8.9 [facility] Comment on above: Performed By: #### H EPATIC, CBC, BMP, LIPASE #### [address] Sodium [Moles/Vol] 141 mmol/L Normal 136-145 [facility] Comment on above: Performed By: #### H EPATIC, CBC, BMP, LIPASE #### [facility] [address] Urea nitrogen [Mass/Vol] 10 mg/dL Normal 7-25 [facility] Comment on above: Performed By: #### H EPATIC, CBC, BMP, LIPASE #### [facility] [address] [place] [id number] [facility] Lipaseon 03-27-2023 Lipase [Catalytic activity/Vol] 14.0 U/L Normal 11.0-82.0 [facility] Comment on above: Result Comment: PERF ORMED BY: [place] [address] PATHOLOGIST VENEER LAYER ROOSEVELT KEYES M.D. Performed By: #### H EPATIC, CBC, BMP, LIPASE #### [address] Magnesiumon 03-27-2023 Magnesium [Mass/Vol] 1.8 mg/dL Low 1.9-2.7 [facility] [place] Comment on above: Performed By: #### H EPATIC, CBC, BMP, LIPASE #### [address] angio abdomen pelvison CT angio abdomen pelvis [facility] [address] [place] [address] CT Scan Report Signed Patient: Constantino Cardoso MR#: [id number] : 1970 Acct:[id number] Age/Sex: 52 / F ADM Date: 03/26/23 Loc: Room: [address] [place] [address] Type: ADM IN Attending Dr: Raf Steward [...] Nora Benites M.D.03/26/2023 9:41 AM Dictation Location: [place] [address] Transcribed By: [facility] 03/26/23 0941 Dictated By: Nora Benites II, MD 03/26/23 0935 Signed By: 03/26/23 09[address] [facility] [address] angio cheston 03-26-2023 CT angio chest [facility] [address] [place] [address] CT Scan Report Signed Patient: Constantino Cardoso MR#: [id number] : 1970 Acct:[id number] Age/Sex: 52 / F ADM Date: 03/26/23 Loc: Room: [address] [place] [address] Type: ADM IN Attending Dr: Raf Steward [...] Nora Benites M.D.03/26/2023 9:34 AM Dictation Location: [place] [address] Transcribed By: [facility] 03/26/2334 Dictated By: Nora Benites II, MD 03/26/2330 Signed By: 03/26/2334 [facility] Comprehensive Metabolic Pane miranda 03-26-2023 Albumin [Mass/Vol] 3.8 g/dL Normal 3.5-5.7 [facility] Comment on above: Performed By: #### P ORS #### [address] Albumin/Globulin [Mass ratio] 1.6 {ratio} Normal [facility] Comment on above: Performed By: #### P ORS #### [facility] [address] ALP [Catalytic activity/Vol] 105 U/L High 34-104 [facility] Comment on above: Performed By: #### P ORS #### [facility] [address] ALT [Catalytic activity/Vol] 11 U/L Normal 7-52 [facility] Comment on above: Performed By: #### P ORS #### [facility] [address] Anion gap [Moles/Vol] 9.7 mmol/L Normal 6.0-15.0 [facility] Comment on above: Performed By: #### P ORS #### [facility] [address] [place] [address] AST [Catalytic activity/Vol] 14 U/L Normal 13-39 [facility] Comment on above: Performed By: #### P ORS #### [facility] [address] [place] [address] Bilirubin [Mass/Vol] 0.4 mg/dL Normal 0.3-1.0 [facility] [place] Comment on above: Performed By: #### P ORS #### [facility] [address] [place] [address] Calcium [Mass/Vol] 8.6 mg/dL Normal 8.6-10.3 [facility] Comment on above: Performed By: #### P ORS #### [facility] [address] [place] [address] [place] Chloride [Moles/Vol] 107 mmol/L Normal 98-107 [facility] [place] Comment on above: Performed By: #### P ORS #### [address] CO2 [Moles/Vol] 25.3 mmol/L Normal 21.0-31.0 [facility] Comment on above: Performed By: #### P ORS #### [address] [address] [place] Creatinine [Mass/Vol] 0.76 mg/dL Normal 0.60-1.20 [facility] Comment on above: Performed By: #### P ORS #### [address] Creatinine Clr Calc Pharmacy 92.46 [facility] Comment on above: Performed By: #### P ORS #### [place] [address] [place] GFR/1.73 sq M.predicted MDRD (S/P/Bld) [Vol rate/Area] mL/min/{1.73_m2} [facility] Comment on above: Performed By: #### P ORS #### [address] Globulin (S) [Mass/Vol] 2.4 g/dL [facility] Comment on above: Performed By: #### P ORS #### [address] Glucose [Mass/Vol] 122 mg/dL High 70-100 [facility] Comment on above: Result Comment: [facility] Glucose Reference Range is dependent on time and content of last meal. Glucose of more than 200 mg/dL in a nonstressed, ambulatory subject supports the diagnosis of Diabetes Mellitus. ADA recommended reference range Performed By: #### P ORS #### [address] Potassium [Moles/Vol] 4.0 mmol/L Normal 3.5-5.1 [facility] Comment on above: Performed By: #### P ORS #### [address] Protein [Mass/Vol] 6.2 g/dL Low 6.4-8.9 [facility] Comment on above: Performed By: #### P ORS #### [address] Sodium [Moles/Vol] 138 mmol/L Normal 136-145 [facility] Comment on above: Performed By: #### P ORS #### [address] Urea nitrogen [Mass/Vol] 12 mg/dL Normal 7- [facility] Comment on above: Performed By: #### P ORS #### [address] Drug Screen,Urineon 03-26-20 23 Amphetamine Screen,Urine Negative Normal Negative [facility] Comment on above: Performed By: #### H EPATIC, CBC, BMP, LIPASE #### [address] Barbiturate Screen,Urine Negative Normal Negative [facility] Comment on above: Performed By: #### H EPATIC, CBC, BMP, LIPASE #### [address] Benzodiazepines Screen,Urine Negative Normal Negative [facility] Comment on above: Performed By: #### H EPATIC, CBC, BMP, LIPASE #### [address] Cannabinoid Screen,Urine Negative Normal Negative [facility] Comment on above: Result Comment: Thes e are unconfirmed results and should not be used for legal purposes. Drug Cut-Off Concentration: AMPH 1000 ng/mL HAWA 200 ng/mL ELSA 200 ng/mL COCM 300 ng/mL OP 300 ng/mL PCP 25 ng/mL THC 20 ng/mL PERFORMED BY: [place] [address] PATHOLOGIST VENEER LAYER ROOSEVELT KEYES M.D. Performed By: #### H EPATIC, CBC, BMP, LIPASE #### [address] Cocaine Screen,Urine Negative Normal Negative [facility] [place] Comment on above: Performed By: #### H EPATIC, CBC, BMP, LIPASE #### [address] Opiate Screen,Urine Positive High Negative [facility] Comment on above: Performed By: #### H EPATIC, CBC, BMP, LIPASE #### [address] [place] [address] [facility] Phencyclidine Screen,Urine Negative Normal Negative [facility] Comment on above: Performed By: #### H EPATIC, CBC, BMP, LIPASE #### [facility] [address] [place] [id number] [facility] echo transthoracicon [facility] echo transthoracic [facility] [address] [place] [address] Echocardiogram Signed Patient: Constantino Cardoso MR#: [id number] : 1970 Acct:[id number] Age/Sex: 52 / F ADM Date: 03/26/23 Loc: Room: [address] [place] [address] Type: ADM IN Attending Dr: Raf Steward MD Ordering Provider: Ron Fair MD Date of Service: 03/26/23 [facility] echo transthoracic: chest pain Copies to: MD Holly Lieberman MD, [facility] BSA: 1.9 m2 BP: 155/86 mmHg HR: [...] 03/26/23 0909 Signed By: Holly Castro MD, [facility] 03/26/23 1148 Normal [facility] Hepatic Panelon 03-26-2023 Bilirubin,Indirect 0.3 mg/dL Normal [facility] Comment on above: Performed By: #### P ORS #### [facility] [address] Bilirubin.indirect [Mass/Vol] 0.10 mg/dL Normal 0.03-0.18 [facility] Comment on above: Performed By: #### P ORS #### [address] Lactic Acidon 03-26-2023 Lactate [Moles/Vol] 0.5 mmol/L Normal 0.5-2.2 [facility] Comment on above: Result Comment: PERF ORMED BY: [place] [address] PATHOLOGIST VENEER LAYER ROOSEVELT KEYES M.D. Performed By: #### L ACTIC, HEPATIC, LIPASE, CMP, HS TROP, MG #### [address] Lipaseon 03-26-2023 Lipase [Catalytic activity/Vol] 8.0 U/L Low 11.0-82.0 [facility] Comment on above: Result Comment: PERF ORMED BY: [place] [address] PATHOLOGIST VENEER LAYER ROOSEVELT KEYES M.D. Performed By: #### P ORS #### [facility] [address] [place] [address] Magnesiumon 03-26-2023 Magnesium [Mass/Vol] 1.8 mg/dL Low 1.9-2.7 [facility] [place] Comment on above: Performed By: #### P ORS #### [place] [address] [place] Porphyrins,Stoolon 3 Porphyrins,Stool Normal [facility] Comment on above: Result Comment: See report. Scanned copy available in EMR. PERFORMED BY: [place] [address] PATHOLOGIST VENEER LAYER ROOSEVELT KEYES M.D. Performed By: #### P ORS #### [address] Troponin I High Sensitivityo n 03-26-2023 Troponin I High Sensitivity 13.8 pg/mL Normal 0.0-15.0 [facility] Comment on above: Result Comment: PERF ORMED BY: [place] [address] PATHOLOGIST VENEER LAYER ROOSEVELT KEYES M.D. Performed By: #### H EPATIC, CBC, BMP, LIPASE #### [address] Troponin I High Sensitivity 14.1 pg/mL Normal 0.0-15.0 [facility] Comment on above: Result Comment: PERF ORMED BY: [place] [address] PATHOLOGIST VENEER LAYER ROOSEVELT KEYES M.D. Performed By: #### P ORS #### [address] Alanine aminotransferase [En zymatic activity/volume] in Serum or PlasmaOrdered By: Pete Thakkar on 03-23-2023 ALT [Catalytic activity/Vol] 11 U/L 7-52 [facility] Albumin [Mass/volume] in Ser um or Plasma by Bromocresol green (BCG) dye binding methoOrdered By: Pete Thakkar on 03-23-2023 Albumin BCG dye [Mass/Vol] 4.1 g/dL 3.5-5.7 [facility] Alkaline phosphatase [Enzyma tic activity/volume] in Serum or PlasmaOrdered By: Pete Thakkar on 03-23-2023 ALP [Catalytic activity/Vol] 115 U/L 34-104 [facility] Aspartate aminotransferase [ Enzymatic activity/volume] in Serum or PlasmaOrdered By: Pete Thakkar on 03-23-2023 AST [Catalytic activity/Vol] 15 U/L 13-39 [facility] Automated erythrocytes count in urine sediment (number/area)Ordered By: Pete Thakkar on 03-23-2023 RBC Auto (Urine sed) [#/Area] 0-1 [HPF] 0-4 [facility] Automated leukocytes count i n urine sediment (number/area)Ordered By: Pete Thakkar on 03-23-2023 WBC Auto (Urine sed) [#/Area] 0-1 [HPF] 0-4 [facility] Basic Metabolic Panelon 03-05 Anion gap [Moles/Vol] 10.1 mmol/L Normal 6.0-15.0 [facility] Comment on above: Performed By: #### H EPATIC, CBC, BMP, LIPASE #### [facility] [address] [place] [address] [place] Calcium [Mass/Vol] 9.0 mg/dL Normal 8.6-10.3 [facility] Comment on above: Performed By: #### H EPATIC, CBC, BMP, LIPASE #### [facility] [address] [place] [id number] [place] Chloride [Moles/Vol] 111 mmol/L High 98-107 [facility] [place] Comment on above: Performed By: #### H EPATIC, CBC, BMP, LIPASE #### [facility] [address] [place] [id number] [place] CO2 [Moles/Vol] 24.5 mmol/L Normal 21.0-31.0 [facility] Comment on above: Performed By: #### H EPATIC, CBC, BMP, LIPASE #### [facility] [address] [place] [id number] [place] Creatinine [Mass/Vol] 0.72 mg/dL Normal 0.60-1.20 [facility] Comment on above: Performed By: #### H EPATIC, CBC, BMP, LIPASE #### [facility] [address] [place] [id number] [place] Creatinine Clr Calc Pharmacy 105.27 [facility] Comment on above: Performed By: #### H EPATIC, CBC, BMP, LIPASE #### [facility] [address] [place] [address] GFR/1.73 sq M.predicted MDRD (S/P/Bld) [Vol rate/Area] mL/min/{1.73_m2} Normal [facility] Comment on above: Performed By: #### H EPATIC, CBC, BMP, LIPASE #### [address] Glucose [Mass/Vol] 79 mg/dL Normal 70-100 [facility] Comment on above: Result Comment: [facility] Glucose Reference Range is dependent on time and content of last meal. Glucose of more than 200 mg/dL in a nonstressed, ambulatory subject supports the diagnosis of Diabetes Mellitus. ADA recommended reference range Performed By: #### H EPATIC, CBC, BMP, LIPASE #### [address] Potassium [Moles/Vol] 3.6 mmol/L Normal 3.5-5.1 [facility] Comment on above: Performed By: #### H EPATIC, CBC, BMP, LIPASE #### [address] Sodium [Moles/Vol] 142 mmol/L Normal 136-145 [facility] Comment on above: Performed By: #### H EPATIC, CBC, BMP, LIPASE #### [facility] [address] [place] [address] Urea nitrogen [Mass/Vol] 24 mg/dL Normal 7-25 [facility] Comment on above: Performed By: #### H EPATIC, CBC, BMP, LIPASE #### [place] [address] [place] Basophils Auto (Bld) [#/Vol] Ordered By: Pete Thakkar on 03-23-2023 Basophils (Bld) [#/Vol] 0.1 10*3/uL 0.0-0.2 [facility] Basophils/100 WBC Auto (Bld) Ordered By: Pete Thakkar on 03-23-2023 Basophils/100 WBC (Bld) 1.0 % . [facility] Bilirubin Test strip Ql (U)O rdered By: Pete Thakkar on 03-23-2023 Bilirubin Ql (U) Negative Negative [facility] Bilirubin.direct [Mass/volum e] in Serum or PlasmaOrdered By: Pete Thakkar on 03-23-2023 Bilirubin.direct [Mass/Vol] 0.10 mg/dL 0.03-0.18 [facility] Bilirubin.total [Mass/volume ] in Serum or PlasmaOrdered By: Pete Thakkar on 03-23-2023 Bilirubin [Mass/Vol] 0.3 mg/dL 0.3-1.0 [facility] [place] CT abdomen pelvis w conon CT abdomen pelvis w con [facility] [place] [address] CT Scan Report Signed Patient: Constantino Cardoso MR#: [id number] : 1970 Acct:[id number] Age/Sex: 52 / F ADM Date: 03/23/23 Loc: ER Room: Type: [facility] ER Attending Dr: Copies to: Pete [...] Columba Domínguez M.D.03/23/2023 7:47 AM Dictation Location: [place] [address] Transcribed By: [facility] 03/23/2347 Dictated By: Columba Domínguez MD 03/23/23 0742 Signed By: 03/23/2347 Normal [facility] Calcium [Mass/volume] in Ser um or PlasmaOrdered By: Pete Thakkar on 03-23-2023 Calcium [Mass/Vol] 9.0 mg/dL 8.6-10.3 [facility] Carbon dioxide, total [Moles /volume] in Serum or PlasmaOrdered By: Pete Thakkar on 03-23-2023 CO2 [Moles/Vol] 24.5 mmol/L 21.0-31.0 [facility] Chloride [Moles/volume] in S cristine or PlasmaOrdered By: Pete Thakkar on 03-23-2023 Chloride [Moles/Vol] 111 mmol/L 98-107 [facility] [place] Color Auto (U)Ordered By: Shoaib Thakkar on 03-23-2023 Color (U) Yellow Yellow [facility] Complete Blood Count Auto Di ffon 03-23-2023 Basophils (Bld) [#/Vol] 0.1 10*3/uL Normal 0.0-0.2 [facility] Comment on above: Result Comment: PERF ORMED BY: [facility] [address] [address] PATHOLOGIST VENEER LAYER ROOSEVELT KEYES M.D. Performed By: #### H EPATIC, CBC, BMP, LIPASE #### [address] Basophils/100 WBC (Bld) 1.0 % Normal . [facility] Comment on above: Performed By: #### H EPATIC, CBC, BMP, LIPASE #### [address] Eosinophils (Bld) [#/Vol] 0.3 10*3/uL Normal 0.0-0.45 [facility] Comment on above: Performed By: #### H EPATIC, CBC, BMP, LIPASE #### [address] Eosinophils/100 WBC (Bld) 5.0 % Normal . [facility] Comment on above: Performed By: #### H EPATIC, CBC, BMP, LIPASE #### [address] Erythrocyte distribution width (RBC) [Ratio] 13.6 % Normal 11.9-15.3 [facility] Comment on above: Performed By: #### H EPATIC, CBC, BMP, LIPASE #### [address] Hematocrit (Bld) [Volume fraction] 35.7 % Normal 34.0-46.4 [facility] Comment on above: Performed By: #### H EPATIC, CBC, BMP, LIPASE #### [address] Hemoglobin (Bld) [Mass/Vol] 12.0 g/dL Normal 11.8-15.4 [facility] Comment on above: Performed By: #### H EPATIC, CBC, BMP, LIPASE #### [address] Lymphocytes (Bld) [#/Vol] 2.3 10*3/uL Normal 1.00-4.8 [facility] Comment on above: Performed By: #### H EPATIC, CBC, BMP, LIPASE #### [place] [address] [place] Lymphocytes/100 WBC (Bld) 36.1 % Normal . [facility] Comment on above: Performed By: #### H EPATIC, CBC, BMP, LIPASE #### [address] MCH (RBC) [Entitic mass] 29.2 pg Normal 24.7-34.3 [facility] Comment on above: Performed By: #### H EPATIC, CBC, BMP, LIPASE #### [address] MCV (RBC) [Entitic vol] 86.7 fL Normal 80-100 [facility] Comment on above: Performed By: #### H EPATIC, CBC, BMP, LIPASE #### [address] Mean Corpuscular HGB Conc 33.7 g/dL Normal 32.0-35.0 [facility] Comment on above: Performed By: #### H EPATIC, CBC, BMP, LIPASE #### [address] Monocytes (Bld) [#/Vol] 0.5 10*3/uL Normal 0.0-0.8 [facility] Comment on above: Performed By: #### H EPATIC, CBC, BMP, LIPASE #### [address] Monocytes/100 WBC (Bld) 16.44 % Normal 0.00-20.00 [facility] Comment on above: Performed By: #### H EPATIC, CBC, BMP, LIPASE #### [address] Monocytes/100 WBC (Bld) 7.7 % Normal . [facility] Comment on above: Performed By: #### H EPATIC, CBC, BMP, LIPASE #### [address] Neutrophils (Bld) [#/Vol] 3.2 10*3/uL Normal 1.8-7.7 [facility] Comment on above: Performed By: #### H EPATIC, CBC, BMP, LIPASE #### [address] Neutrophils/100 WBC (Bld) 50.2 % Normal . [facility] Comment on above: Performed By: #### H EPATIC, CBC, BMP, LIPASE #### [address] NRBC% 0.1 /100{WBC} Normal 0-0.5 [facility] Comment on above: Performed By: #### H EPATIC, CBC, BMP, LIPASE #### [address] Platelet mean volume (Bld) [Entitic vol] 7.6 fL Normal 6.3-10.7 [facility] Comment on above: Performed By: #### H EPATIC, CBC, BMP, LIPASE #### [address] Platelets (Bld) [#/Vol] 357 10*3/uL Normal 150-450 [facility] Comment on above: Performed By: #### H EPATIC, CBC, BMP, LIPASE #### [address] RBC (Bld) [#/Vol] 4.12 10*6/uL Normal 3.60-5.00 [facility] Comment on above: Performed By: #### H EPATIC, CBC, BMP, LIPASE #### [address] WBC (Bld) [#/Vol] 6.3 10*3/uL Normal 3.8-11.6 [facility] Comment on above: Performed By: #### H EPATIC, CBC, BMP, LIPASE #### [address] Creatinine [Mass/volume] in Serum or PlasmaOrdered By: Pete Thakkar on 03-23-2023 Creatinine [Mass/Vol] 0.72 mg/dL 0.60-1.20 [facility] Dipstick and Microscopicon 0 03-23-2023 Appearance (U) Clear Normal Clear [facility] Comment on above: Order Comment: Name Collection Type:: Clean-Voided Midstream Performed By: #### P ORS #### [facility] [address] [place] [address] [place] Bacteria,Urine 1+ High None Seen [facility] Comment on above: Order Comment: Name Collection Type:: Clean-Voided Midstream Performed By: #### P ORS #### [facility] [address] [place] [address] [place] Bilirubin,Urine Negative Normal Negative [facility] Comment on above: Order Comment: Name Collection Type:: Clean-Voided Midstream Performed By: #### P ORS #### [facility] [address] [place] [address] [place] Color (U) Yellow Normal Yellow [facility] Comment on above: Order Comment: Name Collection Type:: Clean-Voided Midstream Performed By: #### P ORS #### [facility] [address] [place] [address] Glucose Ql (U) Normal Normal Normal [facility] Comment on above: Order Comment: Name Collection Type:: Clean-Voided Midstream Performed By: #### P ORS #### [facility] [address] [place] [address] [place] Hyaline Casts,Urine None Seen Normal 0-8 [facility] Comment on above: Order Comment: Name Collection Type:: Clean-Voided Midstream Result Comment: PERF ORMED BY: [address] [place] [address] PATHOLOGIST VENEER LAYER ROOSEVELT KEYES M.D. Performed By: #### P ORS #### [facility] [address] [place] [address] [place] Ketones Ql (U) Negative Normal Negative [facility] Comment on above: Order Comment: Name Collection Type:: Clean-Voided Midstream Performed By: #### P ORS #### [facility] [address] [place] [address] [place] Leukocyte esterase Test strip Ql (U) Negative Normal Negative [facility] Comment on above: Order Comment: Name Collection Type:: Clean-Voided Midstream Performed By: #### P ORS #### [facility] [address] [place] [address] [place] Nitrite,Urine Negative Normal Negative [facility] Comment on above: Order Comment: Name Collection Type:: Clean-Voided Midstream Performed By: #### P ORS #### [place] [address] [place] Occult Blood,Urine Trace High Negative [facility] Comment on above: Order Comment: Name Collection Type:: Clean-Voided Midstream Result Comment: PERF ORMED BY: [place] [address] PATHOLOGIST VENEER LAYER ROOSEVELT KEYES M.D. Performed By: #### P ORS #### [address] pH (U) 5.0 [pH] Normal 5.0-9.0 [facility] Comment on above: Order Comment: Name Collection Type:: Clean-Voided Midstream Performed By: #### P ORS #### [facility] [address] [place] [address] [place] Protein,Urine Negative Normal Negative [facility] Comment on above: Order Comment: Name Collection Type:: Clean-Voided Midstream Performed By: #### P ORS #### [facility] [address] [place] [address] [place] RBC LM.HPF (Urine sed) [#/Area] 0 /[HPF] Normal 0-4 [facility] Comment on above: Order Comment: Name Collection Type:: Clean-Voided Midstream Performed By: #### P ORS #### [place] [address] [place] Specificy [place],Urine 1.048 High 1.001-1.030 [facility] Comment on above: Order Comment: Name Collection Type:: Clean-Voided Midstream Performed By: #### P ORS #### [place] [address] [place] Squamous Epithelial Cell,Urine None Seen Normal 0-2 [facility] Comment on above: Order Comment: Name Collection Type:: Clean-Voided Midstream Performed By: #### P ORS #### [facility] [address] Urobilinogen,Urine Normal Normal Normal [facility] Comment on above: Order Comment: Name Collection Type:: Clean-Voided Midstream Performed By: #### P ORS #### [facility] [address] WBC LM.HPF (Urine sed) [#/Area] 0 /[HPF] Normal 0-4 [facility] Comment on above: Order Comment: Name Collection Type:: Clean-Voided Midstream Performed By: #### P ORS #### [facility] [address] Eosinophils Auto (Bld) [#/Vo l]Ordered By: Pete Thakkar on 03-23-2023 Eosinophils (Bld) [#/Vol] 0.3 10*3/uL 0.0-0.45 [facility] Eosinophils/100 WBC Auto (Bl d)Ordered By: Pete Thakkar on 03-23-2023 Eosinophils/100 WBC (Bld) 5.0 % . [facility] Erythrocyte distribution wid th Auto (RBC) [Ratio]Ordered By: Pete Thakkar on 03-23-2023 Erythrocyte distribution width (RBC) [Ratio] 13.6 % 11.9-15.3 [facility] Globulin Calc (S) [Mass/Vol] Ordered By: Pete Thakkar on 03-23-2023 Globulin (S) [Mass/Vol] 2.9 g/dL [facility] Glucose [Mass/volume] in Ser um or PlasmaOrdered By: Pete Thakkar on 03-23-2023 Glucose [Mass/Vol] 79 mg/dL 70-100 [facility] Comment on above: ADA recommended refe rence rangeRandom Glucose Reference Range is dependent on time and content of last meal. Glucose of more than 200 mg/dL in a nonstressed, ambulatory subject supports the diagnosis of Diabetes Mellitus. Hematocrit Auto (Bld) [Volum e fraction]Ordered By: Pete Thakkar on 03-23-2023 Hematocrit (Bld) [Volume fraction] 35.7 % 34.0-46.4 [facility] Hemoglobin [Mass/volume] in BloodOrdered By: Pete Thakkar on 03-23-2023 Hemoglobin (Bld) [Mass/Vol] 12.0 g/dL 11.8-15.4 [facility] Hepatic Panelon 03-23-2023 Albumin [Mass/Vol] 4.1 g/dL Normal 3.5-5.7 [facility] Comment on above: Performed By: #### H EPATIC, CBC, BMP, LIPASE #### [facility] [address] Albumin/Globulin [Mass ratio] 1.4 {ratio} Normal [facility] Comment on above: Performed By: #### H EPATIC, CBC, BMP, LIPASE #### [facility] [address] ALP [Catalytic activity/Vol] 115 U/L High 34-104 [facility] Comment on above: Performed By: #### H EPATIC, CBC, BMP, LIPASE #### [facility] [address] [place] [address] ALT [Catalytic activity/Vol] 11 U/L Normal 7-52 [facility] Comment on above: Performed By: #### H EPATIC, CBC, BMP, LIPASE #### [facility] [address] [place] [address] AST [Catalytic activity/Vol] 15 U/L Normal 13-39 [facility] Comment on above: Performed By: #### H EPATIC, CBC, BMP, LIPASE #### [facility] [address] [place] [address] [place] Bilirubin [Mass/Vol] 0.3 mg/dL Normal 0.3-1.0 [facility] [place] Comment on above: Performed By: #### H EPATIC, CBC, BMP, LIPASE #### [facility] [address] [place] [address] [place] Bilirubin,Indirect 0.2 mg/dL Normal [facility] Comment on above: Performed By: #### H EPATIC, CBC, BMP, LIPASE #### [facility] [address] [place] [address] Bilirubin.indirect [Mass/Vol] 0.10 mg/dL Normal 0.03-0.18 [facility] Comment on above: Performed By: #### H EPATIC, CBC, BMP, LIPASE #### [facility] [address] Globulin (S) [Mass/Vol] 2.9 g/dL Normal [facility] Comment on above: Performed By: #### H EPATIC, CBC, BMP, LIPASE #### [address] Protein [Mass/Vol] 7.0 g/dL Normal 6.4-8.9 [facility] Comment on above: Performed By: #### H EPATIC, CBC, BMP, LIPASE #### [address] Ketones Auto test strip (U) [Mass/Vol]Ordered By: Pete Thakkar on 03-23-2023 Ketones (U) [Mass/Vol] Negative Negative [facility] Laboratory - UrinalysisOrder ed By: Pete Thakkar on 03-23-2023 Hyaline casts LM Ql (Urine sed) None seen [LPF] 0-8 [facility] Leukocytes [#/volume] correc jun for nucleated erythrocytes in Blood by Automated counOrdered By: Pete Thakkar on 03-23-2023 WBC corrected for nucl RBC Auto (Bld) [#/Vol] 6.3 10*3/uL 3.8-11.6 [facility] Lipaseon 03-23-2023 Lipase [Catalytic activity/Vol] 32.0 U/L Normal 11.0-82.0 [facility] Comment on above: Result Comment: PERF ORMED BY: [place] [address] PATHOLOGIST VENEER LAYER ROOSEVELT KEYES M.D. Performed By: #### H EPATIC, CBC, BMP, LIPASE #### [facility] [address] [place] [address] Lipase [Enzymatic activity/v olume] in Serum or PlasmaOrdered By: Pete Thakkar on 03-23-2023 Lipase [Catalytic activity/Vol] 32.0 U/L 11.0-82.0 [facility] Lymphocytes Auto (Bld) [#/Vo l]Ordered By: Pete Thakkar on 03-23-2023 Lymphocytes (Bld) [#/Vol] 2.3 10*3/uL 1.00-4.8 [facility] Lymphocytes/100 WBC Auto (Bl d)Ordered By: Pete Thakkar on 03-23-2023 Lymphocytes/100 WBC (Bld) 36.1 % . [facility] MCH Auto (RBC) [Entitic mass ]Ordered By: Pete Thakkar on 03-23-2023 MCH (RBC) [Entitic mass] 29.2 pg 24.7-34.3 [facility] MCHC Auto (RBC) [Mass/Vol]Or dered By: Pete Thakkar on 03-23-2023 MCHC (RBC) [Mass/Vol] 33.7 g/dL 32.0-35.0 [facility] MCV Auto (RBC) [Entitic vol] Ordered By: Pete Thakkar on 03-23-2023 MCV (RBC) [Entitic vol] 86.7 fL 80-100 [facility] Monocyte distribution width [Entitic volume] in Blood by AutomatedOrdered By: Pete Thakkar on 03-23-2023 Monocyte distribution width Auto (Bld) [Entitic vol] 16.44 % 0.00-20.00 [facility] Monocytes Auto (Bld) [#/Vol] Ordered By: Pete Thakkar on 03-23-2023 Monocytes (Bld) [#/Vol] 0.5 10*3/uL 0.0-0.8 [facility] Monocytes/100 WBC Auto (Bld) Ordered By: Pete Thakkar on 03-23-2023 Monocytes/100 WBC (Bld) 7.7 % . [facility] Neutrophils Auto (Bld) [#/Vo l]Ordered By: Pete Thakkar on 03-23-2023 Neutrophils (Bld) [#/Vol] 3.2 10*3/uL 1.8-7.7 [facility] Neutrophils/100 WBC Auto (Bl d)Ordered By: Pete Thakkar on 07-19-2023 Neutrophils/100 WBC (Bld) 50.2 % . [facility] Nitrite Test strip Ql (U)Ord ered By: Pete Thakkar on 03-23-2023 Nitrite Ql (U) Negative Negative [facility] No Panel InformationOrdered By: Pete Thakkar on 03-23-2023 Estimated GFR (CKD-EPI) > 60.0 mL/Min [facility] Pharmacy Creatinine Clearance (Chem 105.27 [facility] Nucleated erythrocytes [Pres ence] in Blood by Automated countOrdered By: Pete Thakkar on 03-23-2023 Nucleated RBC Auto Ql (Bld) 0.1 /100{WBC} 0-0.5 [facility] Platelet mean volume Auto (B ld) [Entitic vol]Ordered By: Pete Thakkar on 03-23-2023 Platelet mean volume (Bld) [Entitic vol] 7.6 fL 6.3-10.7 [facility] Platelets Auto (Bld) [#/Vol] Ordered By: Pete Thakkar on 03-23-2023 Platelets (Bld) [#/Vol] 357 10*3/uL 150-450 [facility] Potassium [Moles/volume] in Serum or PlasmaOrdered By: Pete Thakkar on 03-23-2023 Potassium [Moles/Vol] 3.6 mmol/L 3.5-5.1 [facility] Protein Auto test strip (U) [Mass/Vol]Ordered By: Pete Thakkar on 03-23-2023 Protein (U) [Mass/Vol] Negative Negative [facility] Protein [Mass/volume] in Ser um or PlasmaOrdered By: Pete Thakkar on 03-23-2023 Protein [Mass/Vol] 7.0 g/dL 6.4-8.9 [facility] RBC Auto (Bld) [#/Vol]Ordere d By: Pete Tahkkar on 03-23-2023 RBC (Bld) [#/Vol] 4.12 10*6/uL 3.60-5.00 [facility] Serum or plasma albumin/glob ulin mass ratioOrdered By: Pete Thakkar on 03-23-2023 Albumin/Globulin [Mass ratio] 1.4 {ratio} [facility] Serum or plasma anion gap de terminationOrdered By: Pete Thakkar on 03-23-2023 Anion gap [Moles/Vol] 10.1 mmol/L 6.0-15.0 [facility] Serum or plasma non-glucuron idated bilirubin measurement (mass/volume)Ordered By: Pete Thakkar on 03-23-2023 Bilirubin.indirect [Mass/Vol] 0.2 mg/dL [facility] Sodium [Moles/volume] in Ser um or PlasmaOrdered By: Pete Thakkar on 03-23-2023 Sodium [Moles/Vol] 142 mmol/L 136-145 [facility] Specific gravity Auto test s trip (U) [Rel density]Ordered By: Pete Thakkar on 03-23-2023 Specific gravity (U) [Rel density] 1.048 1.001-1.030 [facility] Squamous epithelial cells de tection in urine sediment by light microscopyOrdered By: Pete Thakkar on 03-23-2023 Epithelial cells.squamous LM Ql (Urine sed) None seen [HPF] 0-2 [facility] Troponin I High Sensitivityo n 03-23-2023 Troponin I High Sensitivity 12.2 pg/mL Normal 0.0-15.0 [facility] Comment on above: Result Comment: PERF ORMED BY: [place] [address] PATHOLOGIST VENEER LAYER ROOSEVELT KEYES M.D. Performed By: #### H S TROP #### [address] Troponin I.cardiac [Mass/vol ume] in Serum or Plasma by Detection limit <= 0.01 ng/Ordered By: Pete Thakkar on 03-23-2023 Troponin I.cardiac DL <= 0.01 ng/mL [Mass/Vol] 12.2 pg/mL 0.0-15.0 [facility] Urea nitrogen [Mass/volume] in Serum or PlasmaOrdered By: Pete Thakkar on 03-23-2023 Urea nitrogen [Mass/Vol] 24 mg/dL 7-25 [facility] Urine bacteria detection by automated methodOrdered By: Pete Thakkar on 03-23-2023 Bacteria Auto Ql (U) 1+ None Seen [facility] Urine clarity by refractomet ry automatedOrdered By: Pete Thakkar on 03-23-2023 Clarity Refractometry automated (U) Clear Clear [facility] Urine glucose measurement by automated test strip (mass/volume)Ordered By: Pete Thakkar on 03-23-2023 Glucose Auto test strip (U) [Mass/Vol] Normal mg/dL Normal [facility] Urine hemoglobin detection b y automated test stripOrdered By: Pete Thakkar on 03-23-2023 Hemoglobin Auto test strip Ql (U) Trace Negative [facility] Urine leukocyte esterase det ection by automated test stripOrdered By: Pete Thakkar on 03-23-2023 Leukocyte esterase Auto test strip Ql (U) Negative Negative [facility] Urobilinogen Auto test strip (U) [Mass/Vol]Ordered By: Pete Thakkar on 03-23-2023 Urobilinogen (U) [Mass/Vol] Normal mg/dL Normal [facility] WBC Auto (Bld) [#/Vol]Ordere d By: Pete Thakkar on 03-23-2023 WBC (Bld) [#/Vol] 6.3 10*3/uL 3.8-11.6 [facility] pH Auto test strip (U)Ordere d By: Pete Thakkar on 03-23-2023 pH (U) 5.0 [pH] 5.0-9.0 [facility] Discharge Instructionson Discharge Instructions [id number]#[id number]:127 Normal [facility] Comment on above: Other Comment: wrong folder Prescriptions/Work Noteson 0 03-03-2023 Prescriptions/Work Notes [id number]#[id number]:127 [facility] Consent for Treatmenton 02-03 Consent for Treatment [id number]#[id number]:127 [facility] Discharge Instructionson Discharge Instructions [id number]#[id number]:127 Normal [facility] ED Clinical Summaryon 2022 ED Clinical Summary (Inserted Image. Kristin ble to display) [address] [address] ED Clinical Summary Person Information Name: CONSTANTINO CARDOSO/New_Case Age: 52 Years : 1970 Sex: Female Language: Kinyarwanda PCP: JUDI YOUSSEF CNP Marital Status: Phone: [phone] MRN: Visit Id: Visit Reason: Wrist pain-swelling; [...] 02/19/2023 01:41:18 02/19/2023 01:41:18 ADDRESS: [address] [phone] PHYS DOC NOTES: MEDICAL INFORMATION: Prescriptions Given: New Medications [id number], [address] [place], [place] [id number], [phone] naproxen (Naprosyn 500 mg Tab) 1 Tablets [...] Address: When: JUDI YOUSSEF [address] [facility] [place] [phone] Business (1) In 3 days 02/22/2023 Comments: Take the pain medication as prescribed as needed for pain. Please follow-up with your primary care doctor in the next 2 to 3 days for further evaluation management. Please return to the ED for any new or worsening symptoms or DIAGNOSIS: Right wrist sprain Normal [facility] ED Note-Physicianon 02-20-20 23 ED Note-Physician Basic Information Time Seen: clareZabrina hernandez DO [place] 02/19/2023 00:51 Chief Complaint states fell yesterday injuring right wrist. was seen at [facility] splint in place. states pain radiating up the arm. taking motrin and tylenol History of Present Illness Patient is a 52-year-old female with past medical history of hypertension gastroparesis presenting to the ED for evaluation of right arm pain. Patient had a fall yesterday was seen at [facility] and was told it was [...] and Complexity of Problems Differential Diagnosis: [] [facility] Data External documents reviewed: [] My [...] and elbow are obtained. Patient is given [place] in the ED for pain. X-rays do [...] pain, # 20 tab(s), Refills(s) 0, Pharmacy: [id number], 170, cm, 02/19/23 0:56:00 EDT, Height/Length Dosing, 90.2, kg, 02/19/23 0:56:00 EDT, Weight Dosing XR Elbow 3+ Views Right XR Wrist 3+ Views Right Medications Administered Given White Post 5/325 Tab, 1 tab(s), Oral Disposition Plan Discharge Prescription List Prescriptions Naprosyn 500 mg Tab, 500 mg= 1 tab(s), Oral, BID, PRN Follow-up With When Contact Information JUDI YOUSSEF In 3 days 02/22/2023 EDT [address] [place] [address]- [phone] Business (1) Additional Instructions: Take the pain [...] (03/02/2019), Cholecystectomy, Hernia repair, Hysterectomy. Medications Inpatient White Post 5/325 Tab, 1 tab(s), Oral, Once Home albuterol HFA 90 mcg/inh MDI, 2 pu (more content not included)... Normal [facility] Comment on above: Result Comment: Elec [...] safe for you. General instructions ? Take exfr-rdp-gjtsxmp and prescription medicines only as told by [...] it gets (more content not included)... Normal [facility] ED Patient Summaryon 023 ED Patient Summary (Inserted Image. Kristin ble to display) [address] [address] Patient Discharge Instructions Person Information Name: CONSTANTINO CARDOSO Age: 52 Years Arrival Date: 02/19/2023 00:48:45 Discharge Diagnosis: Right wrist sprain Primary Care Physician: JUDI YOUSSEF CNP Provider Information Primary Provider: Zabrina Patton DO Advanced Stove Polisher:None The exam and treatment you received in the Emergency Department were for an urgent problem and are not intended as complete care. It is important that you follow up with a doctor, nurse practitioner, or physician?s admissions assistant for ongoing care. If your symptoms [...] When: JUDI YOUSSEF [address] [place] [address] [phone] Business (1) In 3 days 02/22/2023 Comments: [...] opioids can be used to help relieve qimaodsn-st-lxjfbv pain and are often prescribed following a [...] the ris (more content not included)... Normal [facility] XR Elbow 3+ Views Righton XR [...] mGy = na DAP = na Normal [facility] XR Wrist 3+ Views Righton XR [...] mGy = na DAP = na Normal [facility] Activated partial thrombopla stin time (aPTT) in platelet poor plasma by coagulation aOrdered By: Conner Griffith on 02-15-2023 aPTT Coag (PPP) [Time] 37.0 s 25.1-36.5 [facility] Alanine aminotransferase [En zymatic activity/volume] in Serum or PlasmaOrdered By: Conner Griffith on 02-15-2023 ALT [Catalytic activity/Vol] 13 U/L 7-52 [facility] Albumin [Mass/volume] in Ser um or Plasma by Bromocresol green (BCG) dye binding methoOrdered By: Conner Griffith on 02-15-2023 Albumin BCG dye [Mass/Vol] 4.3 g/dL 3.5-5.7 [facility] Alkaline phosphatase [Enzyma tic activity/volume] in Serum or PlasmaOrdered By: Conner Griffith on 02-15-2023 ALP [Catalytic activity/Vol] 124 U/L 34-104 [facility] Aspartate aminotransferase [ Enzymatic activity/volume] in Serum or PlasmaOrdered By: Conner Griffith on 02-15-2023 AST [Catalytic activity/Vol] 15 U/L 13-39 [facility] Basic Metabolic Panelon 02-03 Anion gap [Moles/Vol] 12.6 mmol/L Normal 6.0-15.0 [facility] Comment on above: Performed By: #### H EPATIC, CBC, BMP, LIPASE #### [facility] [address] [place] [address] [place] Calcium [Mass/Vol] 9.3 mg/dL Normal 8.6-10.3 [facility] Comment on above: Performed By: #### H EPATIC, CBC, BMP, LIPASE #### [facility] [address] [place] [address] [place] Chloride [Moles/Vol] 106 mmol/L Normal 98-107 [facility] Comment on above: Performed By: #### H EPATIC, CBC, BMP, LIPASE #### [facility] [address] [place] [address] [place] CO2 [Moles/Vol] 25.3 mmol/L Normal 21.0-31.0 [facility] Comment on above: Performed By: #### H EPATIC, CBC, BMP, LIPASE #### [facility] [address] Creatinine [Mass/Vol] 0.77 mg/dL Normal 0.60-1.20 [facility] Comment on above: Performed By: #### H EPATIC, CBC, BMP, LIPASE #### [facility] [address] [place] [address] [place] Creatinine Clr Calc Pharmacy 98.01 [facility] Comment on above: Performed By: #### H EPATIC, CBC, BMP, LIPASE #### [facility] [address] [place] [address] [place] GFR/1.73 sq M.predicted MDRD (S/P/Bld) [Vol rate/Area] mL/min/{1.73_m2} [facility] Comment on above: Performed By: #### H EPATIC, CBC, BMP, LIPASE #### [address] Glucose [Mass/Vol] 94 mg/dL Normal 70-100 [facility] Comment on above: Result Comment: Hector Glucose Reference Range is dependent on time and content of last meal. Glucose of more than 200 mg/dL in a nonstressed, ambulatory subject supports the diagnosis of Diabetes Mellitus. ADA recommended reference range Performed By: #### H EPATIC, CBC, BMP, LIPASE #### [facility] [address] [place] [address] [place] Potassium [Moles/Vol] 3.9 mmol/L Normal 3.5-5.1 [facility] Comment on above: Performed By: #### H EPATIC, CBC, BMP, LIPASE #### [facility] [address] [place] [address] [place] Sodium [Moles/Vol] 140 mmol/L Normal 136-145 [facility] Comment on above: Performed By: #### H EPATIC, CBC, BMP, LIPASE #### [facility] [address] [place] [address] [place] Urea nitrogen [Mass/Vol] 14 mg/dL Normal 7-25 [facility] Comment on above: Performed By: #### H EPATIC, CBC, BMP, LIPASE #### [facility] [address] [place] [address] [place] Basophils Auto (Bld) [#/Vol] Ordered By: Conner Griffith on 02-15-2023 Basophils (Bld) [#/Vol] 0.0 10*3/uL 0.0-0.2 [facility] Basophils/100 WBC Auto (Bld) Ordered By: Conner Griffith on 02-15-2023 Basophils/100 WBC (Bld) 0.6 % . [facility] Bilirubin.direct [Mass/volum e] in Serum or PlasmaOrdered By: Conner Griffith on 02-15-2023 Bilirubin.direct [Mass/Vol] 0.00 mg/dL 0.03-0.18 [facility] Comment on above: If the DBIL is less than 0.1, IBIL is not able to becalculated. Bilirubin.total [Mass/volume ] in Serum or PlasmaOrdered By: Conner Griffith on 02-15-2023 Bilirubin [Mass/Vol] 0.4 mg/dL 0.3-1.0 [facility] [place] CT abdomen pelvis w conon CT abdomen pelvis w con [facility] [place] [address] [place] [address] CT Scan Report Signed Patient: Constantino Cardoso MR#: [id number] Acct:[id number] Age/Sex: 52 / F ADM Date: 02/15/23 Loc: ER Room: Type: [facility] ER Attending Dr: Copies to: Conner [...] Columba Domínguez M.D.02/15/2023 9:56 AM Dictation Location: [place] [address] Transcribed By: [facility] 02/15/23 0956 Dictated By: Columba Domínguez MD 02/15/23 0943 Signed By: 02/15/23 0956 Normal [facility] Calcium [Mass/volume] in Ser um or PlasmaOrdered By: Conner Griffith on 02-15-2023 Calcium [Mass/Vol] 9.3 mg/dL 8.6-10.3 [facility] Carbon dioxide, total [Moles /volume] in Serum or PlasmaOrdered By: Conner Griffith on 02-15-2023 CO2 [Moles/Vol] 25.3 mmol/L 21.0-31.0 [facility] Chloride [Moles/volume] in S cristine or PlasmaOrdered By: Conner Griffith on 02-15-2023 Chloride [Moles/Vol] 106 mmol/L 98-107 [facility] [place] Complete Blood Count Auto Di ffon 02-15-2023 Basophils (Bld) [#/Vol] 0.0 10*3/uL Normal 0.0-0.2 [facility] Comment on above: Result Comment: PERF ORMED BY: [place] [address] PATHOLOGIST VENEER LAYER ROOSEVELT KEYES M.D. Performed By: #### P ORS #### [address] Basophils/100 WBC (Bld) 0.6 % Normal . [facility] Comment on above: Performed By: #### P ORS #### [facility] [address] [place] [address] Eosinophils (Bld) [#/Vol] 0.2 10*3/uL Normal 0.0-0.45 [facility] Comment on above: Performed By: #### P ORS #### [facility] [address] [place] [address] Eosinophils/100 WBC (Bld) 4.0 % Normal . [facility] Comment on above: Performed By: #### P ORS #### [address] Erythrocyte distribution width (RBC) [Ratio] 13.5 % Normal 11.9-15.3 [facility] Comment on above: Performed By: #### P ORS #### [address] Hematocrit (Bld) [Volume fraction] 38.4 % Normal 34.0-46.4 [facility] Comment on above: Performed By: #### P ORS #### [address] Hemoglobin (Bld) [Mass/Vol] 13.0 g/dL Normal 11.8-15.4 [facility] Comment on above: Performed By: #### P ORS #### [address] Lymphocytes (Bld) [#/Vol] 1.8 10*3/uL Normal 1.00-4.8 [facility] Comment on above: Performed By: #### P ORS #### [address] Lymphocytes/100 WBC (Bld) 33.8 % Normal . [facility] Comment on above: Performed By: #### P ORS #### [address] MCH (RBC) [Entitic mass] 29.4 pg Normal 24.7-34.3 [facility] Comment on above: Performed By: #### P ORS #### [address] MCV (RBC) [Entitic vol] 86.8 fL Normal 80-100 [facility] Comment on above: Performed By: #### P ORS #### [address] Mean Corpuscular HGB Conc 33.8 g/dL Normal 32.0-35.0 [facility] Comment on above: Performed By: #### P ORS #### [address] Monocytes (Bld) [#/Vol] 0.3 10*3/uL Normal 0.0-0.8 [facility] Comment on above: Performed By: #### P ORS #### [address] Monocytes/100 WBC (Bld) 18.21 % Normal 0.00-20.00 [facility] Comment on above: Performed By: #### P ORS #### [address] Monocytes/100 WBC (Bld) 4.8 % Normal . [facility] Comment on above: Performed By: #### P ORS #### [address] Neutrophils (Bld) [#/Vol] 3.0 10*3/uL Normal 1.8-7.7 [facility] Comment on above: Performed By: #### P ORS #### [address] Neutrophils/100 WBC (Bld) 56.8 % Normal . [facility] Comment on above: Performed By: #### P ORS #### [facility] [address] [place] [address] NRBC% 0.2 /100{WBC} Normal 0-0.5 [facility] Comment on above: Performed By: #### P ORS #### [address] Platelet mean volume (Bld) [Entitic vol] 7.3 fL Normal 6.3-10.7 [facility] Comment on above: Performed By: #### P ORS #### [facility] [address] [place] [address] Platelets (Bld) [#/Vol] 385 10*3/uL Normal 150-450 [facility] Comment on above: Performed By: #### P ORS #### [address] RBC (Bld) [#/Vol] 4.43 10*6/uL Normal 3.60-5.00 [facility] Comment on above: Performed By: #### P ORS #### [facility] [address] [place] [address] WBC (Bld) [#/Vol] 5.2 10*3/uL Normal 3.8-11.6 [facility] Comment on above: Performed By: #### P ORS #### [address] Creatinine [Mass/volume] in Serum or PlasmaOrdered By: Conner Griffith on 02-15-2023 Creatinine [Mass/Vol] 0.77 mg/dL 0.60-1.20 [facility] Eosinophils Auto (Bld) [#/Vo l]Ordered By: Conner Griffith on 02-15-2023 Eosinophils (Bld) [#/Vol] 0.2 10*3/uL 0.0-0.45 [facility] Eosinophils/100 WBC Auto (Bl d)Ordered By: Conner Griffith on 02-15-2023 Eosinophils/100 WBC (Bld) 4.0 % . [facility] Erythrocyte distribution wid th Auto (RBC) [Ratio]Ordered By: Conner Griffith on 02-15-2023 Erythrocyte distribution width (RBC) [Ratio] 13.5 % 11.9-15.3 [facility] Globulin Calc (S) [Mass/Vol] Ordered By: Conner Griffith on 02-15-2023 Globulin (S) [Mass/Vol] 3.0 g/dL [facility] Glucose [Mass/volume] in Ser um or PlasmaOrdered By: Conner Griffith on 02-15-2023 Glucose [Mass/Vol] 94 mg/dL 70-100 [facility] Comment on above: ADA recommended refe rence rangeRandom Glucose Reference Range is dependent on time and content of last meal. Glucose of more than 200 mg/dL in a nonstressed, ambulatory subject supports the diagnosis of Diabetes Mellitus. Hematocrit Auto (Bld) [Volum e fraction]Ordered By: Conner Griffith on 02-15-2023 Hematocrit (Bld) [Volume fraction] 38.4 % 34.0-46.4 [facility] Hemoglobin [Mass/volume] in BloodOrdered By: Conner Griffith on 02-15-2023 Hemoglobin (Bld) [Mass/Vol] 13.0 g/dL 11.8-15.4 [facility] Hepatic Panelon 02-15-2023 Albumin [Mass/Vol] 4.3 g/dL Normal 3.5-5.7 [facility] Comment on above: Performed By: #### P ORS #### [facility] [address] [place] [address] [place] Albumin/Globulin [Mass ratio] 1.4 {ratio} Normal [facility] Comment on above: Performed By: #### P ORS #### [facility] [address] [place] [address] [place] ALP [Catalytic activity/Vol] 124 U/L High 34-104 [facility] Comment on above: Performed By: #### P ORS #### [facility] [address] [place] [address] ALT [Catalytic activity/Vol] 13 U/L Normal 7-52 [facility] Comment on above: Performed By: #### P ORS #### [address] AST [Catalytic activity/Vol] 15 U/L Normal 13-39 [facility] Comment on above: Performed By: #### P ORS #### [address] Bilirubin [Mass/Vol] 0.4 mg/dL Normal 0.3-1.0 [facility] Comment on above: Performed By: #### P ORS #### [address] Bilirubin,Indirect 0.4 mg/dL Normal [facility] Comment on above: Performed By: #### P ORS #### [address] Bilirubin.indirect [Mass/Vol] 0.00 mg/dL Low 0.03-0.18 [facility] Comment on above: Result Comment: If t he DBIL is less than 0.1, IBIL is not able to be calculated. Performed By: #### P ORS #### [address] Globulin (S) [Mass/Vol] 3.0 g/dL Normal [facility] Comment on above: Performed By: #### P ORS #### [address] Protein [Mass/Vol] 7.3 g/dL Normal 6.4-8.9 [facility] Comment on above: Performed By: #### P ORS #### [address] Laboratory - CoagulationOrde red By: Conner Griffith on 02-15-2023 PT Coag (PPP) [Time] 11.7 s 9.0-12.9 [facility] Leukocytes [#/volume] correc jun for nucleated erythrocytes in Blood by Automated counOrdered By: Conner Griffith on 02-15-2023 WBC corrected for nucl RBC Auto (Bld) [#/Vol] 5.2 10*3/uL 3.8-11.6 [facility] Lipaseon 02-15-2023 Lipase [Catalytic activity/Vol] 19.0 U/L Normal 11.0-82.0 [facility] Comment on above: Result Comment: PERF ORMED BY: [facility] [address] [place] [address] PATHOLOGIST VENEER LAYER ROOSEVELT KEYES M.D. Performed By: #### H EPATIC, CBC, BMP, LIPASE #### [address] Lipase [Enzymatic activity/v olume] in Serum or PlasmaOrdered By: Conner Griffith on 02-15-2023 Lipase [Catalytic activity/Vol] 19.0 U/L 11.0-82.0 [facility] Lymphocytes Auto (Bld) [#/Vo l]Ordered By: Conner Griffith on 02-15-2023 Lymphocytes (Bld) [#/Vol] 1.8 10*3/uL 1.00-4.8 [facility] Lymphocytes/100 WBC Auto (Bl d)Ordered By: Conner Griffith on 02-15-2023 Lymphocytes/100 WBC (Bld) 33.8 % . [facility] MCH Auto (RBC) [Entitic mass ]Ordered By: Conner Griffith on 02-15-2023 MCH (RBC) [Entitic mass] 29.4 pg 24.7-34.3 [facility] MCHC Auto (RBC) [Mass/Vol]Or dered By: Conner Griffith on 02-15-2023 MCHC (RBC) [Mass/Vol] 33.8 g/dL 32.0-35.0 [facility] MCV Auto (RBC) [Entitic vol] Ordered By: Conner Griffith on 02-15-2023 MCV (RBC) [Entitic vol] 86.8 fL 80-100 [facility] Monocyte distribution width [Entitic volume] in Blood by AutomatedOrdered By: Conner Griffith on 02-15-2023 Monocyte distribution width Auto (Bld) [Entitic vol] 18.21 % 0.00-20.00 [facility] Monocytes Auto (Bld) [#/Vol] Ordered By: Conner Griffith on 02-15-2023 Monocytes (Bld) [#/Vol] 0.3 10*3/uL 0.0-0.8 [facility] Monocytes/100 WBC Auto (Bld) Ordered By: Conner Griffith on 02-15-2023 Monocytes/100 WBC (Bld) 4.8 % . [facility] Neutrophils Auto (Bld) [#/Vo l]Ordered By: Conner Griffith on 02-15-2023 Neutrophils (Bld) [#/Vol] 3.0 10*3/uL 1.8-7.7 [facility] Neutrophils/100 WBC Auto (Bl d)Ordered By: Conner Griffith on 02-15-2023 Neutrophils/100 WBC (Bld) 56.8 % . [facility] No Panel InformationOrdered By: Conner Griffith on 02-15-2023 Estimated GFR (CKD-EPI) > 60.0 mL/Min [facility] Pharmacy Creatinine Clearance (Chem 98.01 [facility] Nucleated erythrocytes [Pres ence] in Blood by Automated countOrdered By: Conner Griffith on 02-15-2023 Nucleated RBC Auto Ql (Bld) 0.2 /100{WBC} 0-0.5 [facility] Partial Thromboplastin Timeo n 02-15-2023 aPTT Coag (Bld) [Time] 37.0 s High 25.1-36.5 [facility] Comment on above: Result Comment: PERF ORMED BY: [place] [address] PATHOLOGIST VENEER LAYER ROOSEVELT KEYES M.D. Performed By: #### P ORS #### [address] Platelet mean volume Auto (B ld) [Entitic vol]Ordered By: Conner Griffith on 02-15-2023 Platelet mean volume (Bld) [Entitic vol] 7.3 fL 6.3-10.7 [facility] Platelet poor plasma interna tional normalized ratio (INR) by coagulation assay (relatOrdered By: Conner Griffith on 02-15-2023 INR Coag (PPP) [Relative time] 1.0 {INR} [facility] Comment on above: INR Therapeutic Rang e [...] 02-15-2023 Platelets (Bld) [#/Vol] 385 10*3/uL 150-450 [facility] Potassium [Moles/volume] in Serum or PlasmaOrdered By: Conner Griffith on 02-15-2023 Potassium [Moles/Vol] 3.9 mmol/L 3.5-5.1 [facility] Protein [Mass/volume] in Ser um or PlasmaOrdered By: Conner Griffith on 02-15-2023 Protein [Mass/Vol] 7.3 g/dL 6.4-8.9 [facility] Prothrombin Time INRon 02-15 INR Coag (PPP) [Relative time] 1.0 {INR} Normal [facility] Comment on above: Result Comment: INR Therapeutic [...] 4.5 Performed By: #### P ORS #### [address] PT Coag (PPP) [Time] 11.7 s Normal 9.0-12.9 [facility] Comment on above: Performed By: #### P ORS #### [facility] [address] [place] [id number] [facility] RBC Auto (Bld) [#/Vol]Ordere d By: Conner Griffith on 02-15-2023 RBC (Bld) [#/Vol] 4.43 10*6/uL 3.60-5.00 [facility] Serum or plasma albumin/glob ulin mass ratioOrdered By: Conner Griffith on 02-15-2023 Albumin/Globulin [Mass ratio] 1.4 {ratio} [facility] Serum or plasma anion gap de terminationOrdered By: Conner Griffith on 02-15-2023 Anion gap [Moles/Vol] 12.6 mmol/L 6.0-15.0 [facility] Serum or plasma non-glucuron idated bilirubin measurement (mass/volume)Ordered By: Conner Griffith on 02-15-2023 Bilirubin.indirect [Mass/Vol] 0.4 mg/dL [facility] Sodium [Moles/volume] in Ser um or PlasmaOrdered By: Conner Griffith on 02-15-2023 Sodium [Moles/Vol] 140 mmol/L 136-145 [facility] Urea nitrogen [Mass/volume] in Serum or PlasmaOrdered By: Conner Griffith on 02-15-2023 Urea nitrogen [Mass/Vol] 14 mg/dL 7-25 [facility] WBC Auto (Bld) [#/Vol]Ordere d By: Conner Griffith on 02-15-2023 WBC (Bld) [#/Vol] 5.2 10*3/uL 3.8-11.6 [facility] MG MAMM SCREEN 3D MACARIO CADon 11-30-2022 MG MAMM SCREEN 3D MACARIO CAD Normal [facility] ER URINE PROFILEon 3 Bilirubin Ql (U) Negative Normal NEGATIVE [facility] Comment on above: Performed By: #### E RUR ####[facility] [address] [place] [address]DrNeo Tadeo Haja Clarity (U) CLEAR Normal CLEAR [facility] Comment on above: Performed By: #### E RUR ####[facility] [address] [place], [place] [address]Dr. Margotnicole Smyth Color (U) YELLOW Normal YELLOW [facility] Comment on above: Performed By: #### E RUR ####[facility] X[address] [place], [place] [address]Dr. Tadeo PANAHD A micrscopic examina tion will be performed if indicated. Normal [facility] Comment on above: Performed By: #### E RUR ####[facility] [address] [place], [place] [address]Dr. Margotnicole Haja Glucose Ql (U) Negative Normal NEGATIVE [facility] Comment on above: Performed By: #### E RUR ####[facility] B[address] [place], [place] [address]Dr. Tadeo Smyth Hemoglobin Ql (U) TRACE-INTACT Abnormal NEGATIVE [facility] Comment on above: Performed By: #### E RUR ####[facility] [address] [place], [place] [address]Dr. Tadeo Smyth Ketones Ql (U) Negative Normal NEGATIVE [facility] Comment on above: Performed By: #### E RUR ####[facility] C[address] [place], [place] [address]Dr. Tadeo Smyth LEUKOCYTES Negative Normal NEGATIVE [facility] Comment on above: Performed By: #### E RUR ####[facility] [address] [place], [place] [address]Dr. Tadeo Smyth Nitrite Ql (U) Negative Normal NEGATIVE [facility] Comment on above: Performed By: #### E RUR ####[facility] [address]ms[address] [place], [place] [address]Dr. Tadeo Smyth pH (U) 6.0 [pH] Normal 5-9 [facility] Comment on above: Performed By: #### E RUR ####[facility] J[address]pei[address] [place], [place] [address]Dr. Tadeo Smyth SPEC GRAVITY >=1.030 Abnormal 1.005-<=1.0 25 [facility] Comment on above: Performed By: #### E RUR ####[facility] [address] [place] [address]Dr. Margotnicole Smyth UA PROTEIN Negative Normal NEGATIVE/ TRACE [facility] Comment on above: Performed By: #### E RUR ####[facility] R[address]pc[address] [place], [place] [address]Dr. Tadeo Smyth UR MICRO IND NOT INDICATED Normal [facility] Comment on above: Performed By: #### E RUR ####[facility] [address] [place], [place] [address]Dr. Tadeo Haja Urobilinogen Qn (U) 0.2 {Benito'U}/dL Normal 0.2 - 1. 0 [facility] Comment on above: Performed By: #### E RUR ####[facility] [address]uhmit[address] [place], [place] [address]Dr. Margotnicole Smyth XR ABD FLAT UP_PA Kasey 11-28 XR ABD FLAT UP_PA CH Normal [facility] AMYLASEon 11-27-2022 Amylase [Catalytic activity/Vol] 63 U/L Normal 25-115 [facility] Comment on above: Performed By: #### L IPA, VIJI, CMP ####[facility] [address] [place], [place] [address]Dr. Tadeo Haja CBC AUTO DIFFon 11-27-2022 BASO # 0.0 103/ul Normal 0.0-0.1 [facility] Comment on above: Performed By: #### C BC ####[facility] [address] [place], [place] [address]Dr. Tadeo Smyth Basophils/100 WBC (Bld) 0.4 % Normal 0.2-2.0 [facility] Comment on above: Performed By: #### C BC ####[facility] Umrihuzrht[address] [place], [place] [address]Dr. Tadeo Smyth EO # 0.2 103/ul Normal 0.0-0.7 [facility] Comment on above: Performed By: #### C BC ####[facility] Gehesnehph42[address] [place], [place] [address]Dr. Tadeo Smyth Eosinophils/100 WBC (Bld) 2.8 % Normal 0.9-7.0 [facility] Comment on above: Performed By: #### C BC ####[facility] Gjoipojchq220[address] [place] [address]Dr. Tadeo Smyth Erythrocyte distribution width (RBC) [Ratio] 13.2 % Normal 11.0-15.0 [facility] Comment on above: Performed By: #### C BC ####[facility] Souwkdqstu7196[address] [place], [place] [address]Dr. Tadeo Smyth Hematocrit (Bld) [Volume fraction] 42.6 % Normal 36.0-48.0 [facility] Comment on above: Performed By: #### C BC ####[facility] Nomgzikmsg8633[address] [place], [place] [address]Dr. Tadeo Smyth Hemoglobin (Bld) [Mass/Vol] 13.6 g/dL Normal 12.0-16.0 [facility] Comment on above: Performed By: #### C BC ####[facility] Fbzoqzjbup0813[address] [place], [place] [address]Dr. Tadeo Smyth IG # 0.02 10e3/ul Normal 0.00-0.03 [facility] Comment on above: Performed By: #### C BC ####[facility] Inladsffwl6401[address] [place], [place] [address]Dr. Tadeo Smyth IG % 0.3 % Normal 0.0-0.5 [facility] Comment on above: Performed By: #### C BC ####[facility] Cenanhoimz[address] [place], [place] [address]Dr. Tadeo Smyth LYMPH # 2.2 103/ul Normal 1.2-3.8 [facility] Comment on above: Performed By: #### C BC ####[facility] Vqfwnprxvy5415[address] [place], [place] [address]Dr. Tadeo Smyth Lymphocytes/100 WBC (Bld) 32.1 % Normal 20.5-60.0 [facility] Comment on above: Performed By: #### C BC ####[facility] Zxkqbvcvhg169[address] [place], [place] [address]Dr. Tadeo Smyth MANUAL DIFF REQ NO Normal [facility] Comment on above: Performed By: #### C BC ####[facility] Ejmibqxuvj0150 [place] [id number]. Tadeo Haja MCH (RBC) [Entitic mass] 29.6 pg Normal 26.7-34.0 [facility] Comment on above: Performed By: #### C BC ####[facility] Cjxbozlpmb8024 [place] [address]Dr. Tadeo Haja MCHC (RBC) [Mass/Vol] 31.9 g/dL Normal 29.9-35.2 [facility] Comment on above: Performed By: #### C BC ####[facility] Axrlzvmlxk1229 [place] [address]Dr. Tadeo Smyth MCV (RBC) [Entitic vol] 92.6 fL Normal 81.0-99.0 [facility] Comment on above: Performed By: #### C BC ####[facility] Lhvkuqvuky6037[address] [place], [place] [address]Dr. Tadeo Smyth MONO # 0.2 103/ul Critically low 0.3-0.8 [facility] Comment on above: Performed By: #### C BC ####[facility] Isdiwqbfgd4865[address] [place], [place] [address]Dr. Tadeo Smyth Monocytes/100 WBC (Bld) 3.2 % Normal 1.7-12.0 [facility] Comment on above: Performed By: #### C BC ####[facility] Uvsbubxaht7324[address] [place], [place] [address]DrNeo Smyth NEUT # 4.2 103/ul Normal 1.4-6.5 [facility] Comment on above: Performed By: #### C BC ####[facility] Sltrqgxorz5034[address] [place], [place] [address]DrNeo Smyth Neutrophils/100 WBC (Bld) 61.2 % Normal 43.0-75.0 [facility] Comment on above: Performed By: #### C BC ####[facility] Usegfrelxr7087[address] [place], [place] [address]DrNeo Smyth Platelet mean volume (Bld) [Entitic vol] 9.0 fL Critically low 9.5-13.5 [facility] Comment on above: Performed By: #### C BC ####[facility] Djxzacdyek2666 [place] [address]Dr. Tadeo Smyth PLT 392 103/ul Normal 150-450 [facility] Comment on above: Performed By: #### C BC ####[facility] Wvvhwvwaxk6185 [place] [address]Dr. Tadeo Smyth RBC 4.60 106/ul Normal 4.20-5.40 [facility] Comment on above: Performed By: #### C BC ####[facility] Csthzyoevf1606 [place] [address]Dr. Tadeo Smyth WBC 6.9 103/ul Normal 4.0-11.0 [facility] Comment on above: Performed By: #### C BC ####[facility] Uokqxeipul0763[address] [place], [place] [address]Dr. Tadeo Smyth LIPASEon 11-27-2022 Lipase [Catalytic activity/Vol] 100.0 U/L Normal 73.0-393.0 [facility] Comment on above: Performed By: #### L VIJI HALL, CMP ####[facility] Ufwsuvwdua1456[address] [place], [place] [address]Dr. Tadeo Smyth PROF 14(COMP METB)on 023 Albumin [Mass/Vol] 3.5 g/dL Normal 3.4-5.0 [facility] Comment on above: Performed By: #### L VIJI HALL, CMP ####[facility] Epnqyzcuvr2546 [place] [address]Dr. Tadeo Smyth Albumin/Globulin [Mass ratio] 0.9 {ratio} Normal [facility] Comment on above: Performed By: #### L VIJI HALL, CMP ####[facility] Yunwjkyovq4879[address] [place], [place] [address]Dr. Tadeo Smyth ALP [Catalytic activity/Vol] 166 U/L Critically high 46-116 [facility] Comment on above: Performed By: #### L VIJI HALL, CMP ####[facility] Oxdqmrfbnm9616[address] [place], [place] [id number]. Tadeo Smyth ALT [Catalytic activity/Vol] 25 U/L Normal 14-59 [facility] Comment on above: Performed By: #### L VIJI HALL, CMP ####[facility] Wcjmdukace3660 [place] [address]Dr. Tadeo Smyth Anion gap [Moles/Vol] 12.4 mmol/L Normal Th e [facility] Comment on above: Performed By: #### L VIJI HALL, CMP ####[facility] Bfnozmfpoh8754 [place] [address]Dr. Tadeo Smyth AST [Catalytic activity/Vol] 18 U/L Normal 15-37 [facility] Comment on above: Performed By: #### L VIJI HALL, CMP ####[facility] Frzdwhbtct6208[address] [place], [place] [address]Dr. Tadeo Smyth Bilirubin [Mass/Vol] 0.3 mg/dL Normal 0.2-1.0 [facility] Comment on above: Performed By: #### L VIJI HALL, CMP ####[facility] Szsgavnonx8125[address] [place], [place] [address]Dr. Tadeo Smyth Calcium [Mass/Vol] 9.1 mg/dL Normal 8.5-10.1 [facility] Comment on above: Performed By: #### L VIJI HALL, CMP ####[facility] Pnnbfksfus9759[address] [place], [place] [address]Dr. Tadeo Smyth Chloride [Moles/Vol] 104 mmol/L Normal 98-107 [facility] Comment on above: Performed By: #### L VIJI HALL, CMP ####[facility] Pcojmibywy4735[address] [place], [place] [address]Dr. Tadeo Smyth CO2 [Moles/Vol] 25.0 mmol/L Normal 21.0-32.0 [facility] Comment on above: Performed By: #### L VIJI HALL, CMP ####[facility] Qcqapeqdsb1593[address] [place], [place] [address]Dr. Tadeo Smyth Creatinine [Mass/Vol] 0.87 mg/dL Normal 0.55-1.02 [facility] Comment on above: Performed By: #### L VIJI HALL, CMP ####[facility] Sthvmutbyi3757 [place] [address]Dr. Tadeo Smyth EGFR-AF CROATIAN >60 Normal >=60 [facility] Comment on above: Performed By: #### L VIJI HALL, CMP ####[facility] Chvskdhave6228 [place] [address]Dr. Tadeo Smyth EGFR-NON AF CROATIAN >60 Normal >=60 [facility] Comment on above: Performed By: #### L VIJI HALL, CMP ####[facility] Rbwvutxzyw2639 [place] [address]Dr. Tadeo Smyth Globulin (S) [Mass/Vol] 3.9 g/dL Normal [facility] Comment on above: Performed By: #### L VIJI HALL, CMP ####[facility] Dehpcnruok9829[address] [place], [place] [address]Dr. Tadeo Smyth Glucose [Mass/Vol] 169 mg/dL Critically high 74-106 [facility] Comment on above: Performed By: #### L VIJI HALL, CMP ####[facility] Dbepxfbtzj1972[address] [place], [place] [address]Dr. Tadeo Smyth Potassium [Moles/Vol] 3.4 mmol/L Critically low 3.5-5.1 [facility] Comment on above: Performed By: #### L VIJI HALL, CMP ####[facility] Bmlemgkkse6135[address] [place], [place] [address]Dr. Tadeo Smyth Protein [Mass/Vol] 7.4 g/dL Normal 6.4-8.2 [facility] Comment on above: Performed By: #### L VIJI HALL, CMP ####[facility] Mbsmomqnvm4699[address] [place], [place] [address]Dr. Tadeo Smyth Sodium [Moles/Vol] 138 mmol/L Normal 136-145 [facility] Comment on above: Performed By: #### L VIJI HALL, CMP ####[facility] Imolvjapup3196[address] [place], [place] [address]Dr. Tadeo Smyth Urea nitrogen [Mass/Vol] 23.0 mg/dL Critically high 7.0-18.0 [facility] Comment on above: Performed By: #### L VIJI HALL, CMP ####[facility] Zcvtrnggny0704 [place], [place] [address]Ij. Tadeo Smyth Urea nitrogen/Creatinine [Mass ratio] 26.4 mg/mg Normal [facility] Comment on above: Performed By: #### L ISABEL, VIJI, CMP ####[facility] Wbcddcwtol1537 [place], [place] [address]No. Tadeo Smy[address] CT enterographyon 11-04-2022 CT enterography [facility] [place] [address] CT Scan Report Signed Patient: Constantino Cardoso MR#: [id number] : 1970 Acct:[id number] Age/Sex: 52 / F ADM Date: 11/04/22 Loc: CT Room: Type: [facility] Attending Dr: Jennie Ayon MD [...] Bateman Jr., D.O.11/04/2022 11:17 AM Dictation Location: [place] [address] Transcribed By: [facility] 11/04/22 111 Dictated By: Tiburcio Bateman Jr, DO 11/04/22 1112 Signed By: 11/04/22 1117 Normal [facility] AMYLASEon 11-02-2022 Amylase [Catalytic activity/Vol] 40 U/L Normal 25-115 [facility] Comment on above: Performed By: #### L IPA, MG, CMP, VIJI ####[facility] Aobgswsbyz9[address] [place] [address]Dr. Tadeo Smyth CBC AUTO DIFFon 11-02-2022 BASO # 0.0 103/ul Normal 0.0-0.1 [facility] Comment on above: Performed By: #### C BC ####[facility] Hmufqtznyy9816 [place] [address]Dr. Tadeo Smyth Basophils/100 WBC (Bld) 0.5 % Normal 0.2-2.0 [facility] Comment on above: Performed By: #### C BC ####[facility] Ckgqleacpo1655 [place] [address]Dr. Tadeo Smyth EO # 0.1 103/ul Normal 0.0-0.7 [facility] Comment on above: Performed By: #### C BC ####[facility] Hbukaoanlz4484 [place] [address]Dr. Tadeo Smyth Eosinophils/100 WBC (Bld) 2.8 % Normal 0.9-7.0 [facility] Comment on above: Performed By: #### C BC ####[facility] Pugewxhije[address] [place], [place] [address]Dr. Tadeo Smyth Erythrocyte distribution width (RBC) [Ratio] 13.3 % Normal 11.0-15.0 [facility] Comment on above: Performed By: #### C BC ####[facility] Uewbdzhgfm4699 [place] [address]Dr. Tadeo Smyth Hematocrit (Bld) [Volume fraction] 35.6 % Critically low 36.0-48.0 [facility] Comment on above: Performed By: #### C BC ####[facility] Naeenrzxwg1436[address] [place], [place] [address]Dr. Margotnicole Smyth Hemoglobin (Bld) [Mass/Vol] 11.3 g/dL Critically low 12.0-16.0 [facility] Comment on above: Performed By: #### C BC ####[facility] Parzzmhqkn1995[address] [place], [place] [address]Dr. Tadeo Smyth IG # 0.01 10e3/ul Normal 0.00-0.03 [facility] Comment on above: Performed By: #### C BC ####[facility] Jwgtqlwsgp87[address] [place], [place] [address]Dr. Tadeo Smyth IG % 0.2 % Normal 0.0-0.5 [facility] Comment on above: Performed By: #### C BC ####[facility] Yajrypwnrw1028[address] [place], [place] [address]Dr. Margotnicole Smyth LYMPH # 1.5 103/ul Normal 1.2-3.8 [facility] Comment on above: Performed By: #### C BC ####[facility] Qpdmypjjyn199[address] [place], [place] [address]DrNeo Smyth Lymphocytes/100 WBC (Bld) 34.9 % Normal 20.5-60.0 [facility] Comment on above: Performed By: #### C BC ####[facility] Pbjrbkdwab665[address] [place], [place] [address]DrNeo Smyth MANUAL DIFF REQ NO Normal [facility] Comment on above: Performed By: #### C BC ####[facility] Meqrbxpzjz0613[address] [place], [place] [address]DrNeo Smyth MCH (RBC) [Entitic mass] 28.8 pg Normal 26.7-34.0 [facility] Comment on above: Performed By: #### C BC ####[facility] Zguevxavmv8403 [place] [phone]. Tadeo Haja MCHC (RBC) [Mass/Vol] 31.7 g/dL Normal 29.9-35.2 [facility] Comment on above: Performed By: #### C BC ####[facility] Wzdjvhxrbq1892 [place] [phone]. Taedo Smyth MCV (RBC) [Entitic vol] 90.8 fL Normal 81.0-99.0 [facility] Comment on above: Performed By: #### C BC ####[facility] Tnnviibafh0213[address] [place], [place] [address]Dr. Tadeo Smyth MONO # 0.3 103/ul Normal 0.3-0.8 [facility] Comment on above: Performed By: #### C BC ####[facility] Vmitixeouk1067[address] [place], [place] [address]Dr. Tadeo Smyth Monocytes/100 WBC (Bld) 6.9 % Normal 1.7-12.0 [facility] Comment on above: Performed By: #### C BC ####[facility] Hvtcfdvjef5833[address] [place], [place] [address]Dr. Tadeo Smyth NEUT # 2.4 103/ul Normal 1.4-6.5 [facility] Comment on above: Performed By: #### C BC ####[facility] Wppepximcr5526[address] [place], [place] [address]Dr. Tadeo Smyth Neutrophils/100 WBC (Bld) 54.7 % Normal 43.0-75.0 [facility] Comment on above: Performed By: #### C BC ####[facility] Jmcdjeejmq392[address] [place], [place] [address]Dr. Tadeo Smyth Platelet mean volume (Bld) [Entitic vol] 8.9 fL Critically low 9.5-13.5 [facility] Comment on above: Performed By: #### C BC ####[facility] Jktffluqcp7754[address] [place], [place] [address]Dr. Tadeo Smyth PLT 316 103/ul Normal 150-450 [facility] Comment on above: Performed By: #### C BC ####[facility] Tgodqpyfvh1846 [place] [address]Dr. Tadeo Smyth RBC 3.92 106/ul Critically low 4.20-5.40 [facility] Comment on above: Performed By: #### C BC ####[facility] Odruxetzjg3916 [place] [address]Dr. Tadeo Smyth WBC 4.4 103/ul Normal 4.0-11.0 [facility] Comment on above: Performed By: #### C BC ####[facility] Lrpvbgomvj6256 [place] [address]Dr. Tadeo Smyth H PYLORI ANTIBODY IGGon 10-07 H. PYLORI IGG ABS 0.12 Index Value Normal 0.00-0.79 [facility] Comment on above: Result Comment: Nega tive <0.80 Equivocal 0.80 - 0.89 Positive >0.89 Performed By: #### H PYLLC ####[facility] Hgnjwrdgvn9[address] [place], [place] [address]Dr. Tadeo Smyth LIPASEon 11-02-2022 Lipase [Catalytic activity/Vol] 58.0 U/L Critically low 73.0-393.0 [facility] Comment on above: Performed By: #### L IPA, MG, CMP, VIJI ####[facility] Fmtoengwwj6234[address] [place], [place] [address]Dr. Tadeo Smyth MAGNESIUMon 11-02-2022 Magnesium [Mass/Vol] 1.8 mg/dL Normal 1.8-2.4 [facility] Comment on above: Performed By: #### L IPA, MG, CMP, VIJI ####[facility] Sgkqnjfkzy1418[address] [place], [place] [address]Dr. Margotnicole Smyth PROF 14(COMP METB)on 023 Albumin [Mass/Vol] 3.2 g/dL Critically low 3.4-5.0 Th e [facility] Comment on above: Performed By: #### L IPA, MG, CMP, VIJI ####[facility] Itpdpqomqa6337[address] [place], [place] [address]Dr. Tadeo Smyth Albumin/Globulin [Mass ratio] 1.0 {ratio} Normal [facility] Comment on above: Performed By: #### L IPA, MG, CMP, VIJI ####[facility] Lqmippdrci0560 [place] [address]Dr. Tadeo Smyth ALP [Catalytic activity/Vol] 138 U/L Critically high 46-116 [facility] Comment on above: Performed By: #### L IPA, MG, CMP, VIJI ####[facility] Etwubydgrv6623[address] [place], [place] [address]Dr. Tadeo Smyth ALT [Catalytic activity/Vol] 22 U/L Normal 14-59 [facility] Comment on above: Performed By: #### L IPA, MG, CMP, VIJI ####[facility] Xkuffsloyv367[address] [place], [place] [address]Dr. Tadeo Smyth Anion gap [Moles/Vol] 10.0 mmol/L Normal [facility] Comment on above: Performed By: #### L IPA, MG, CMP, VIJI ####[facility] Cupcsolujy9155[address] [place], [place] [address]Dr. Tadeo Smyth AST [Catalytic activity/Vol] 18 U/L Normal 15-37 [facility] Comment on above: Performed By: #### L IPA, MG, CMP, VIJI ####[facility] Bdcrrywsvv2668[address] [place], [place] [address]Dr. Tadeo Smyth Bilirubin [Mass/Vol] 0.5 mg/dL Normal 0.2-1.0 [facility] Comment on above: Performed By: #### L IPA, MG, CMP, VIJI ####[facility] Oiigqwmkxb0518[address] [place], [place] [address]Dr. Tadeo Smyth Calcium [Mass/Vol] 8.9 mg/dL Normal 8.5-10.1 [facility] Comment on above: Performed By: #### L IPA, MG, CMP, VIJI ####[facility] Lkdcwjzlft0022[address] [place], [place] [address]Dr. Tadeo Smyth Chloride [Moles/Vol] 107 mmol/L Normal 98-107 [facility] Comment on above: Performed By: #### L IPA, MG, CMP, VIJI ####[facility] Cmpjflofdr4318 [place] [phone]. Tadeo Smyth CO2 [Moles/Vol] 28.8 mmol/L Normal 21.0-32.0 [facility] Comment on above: Performed By: #### L IPA, MG, CMP, VIJI ####[facility] Kxorxekmqa4343 [place] [address]Dr. Tadeo Smyth Creatinine [Mass/Vol] 0.74 mg/dL Normal 0.55-1.02 [facility] Comment on above: Performed By: #### L IPA, MG, CMP, VIJI ####[facility] Qkdfzkzdci9704 [place] [address]Dr. aTdeo Smyth EGFR-AF CROATIAN >60 Normal >=60 [facility] Comment on above: Performed By: #### L IPA, MG, CMP, VIJI ####[facility] Ftkmvaalyv5470 [place] [address]Dr. Margotnicole Haja EGFR-NON AF CROATIAN >60 Normal >=60 [facility] Comment on above: Performed By: #### L IPA, MG, CMP, VIJI ####[facility] Vtqeqidwwc1064 [place] [address]Dr. Tadeo Smyth Globulin (S) [Mass/Vol] 3.3 g/dL Normal [facility] Comment on above: Performed By: #### L IPA, MG, CMP, VIJI ####[facility] Qdwxrygdyp0727 [place] [address]Dr. Margotnicole Haja Glucose [Mass/Vol] 96 mg/dL Normal 74-106 [facility] Comment on above: Performed By: #### L IPA, MG, CMP, VIJI ####[facility] Zoeeugiczz6562 [place] [address]Dr. Tadeo Smyth Potassium [Moles/Vol] 3.8 mmol/L Normal 3.5-5.1 [facility] Comment on above: Performed By: #### L IPA, MG, CMP, VIJI ####[facility] Phafzogbrn1610 [place] [address]Dr. Margotnicole Smyth Protein [Mass/Vol] 6.5 g/dL Normal 6.4-8.2 [facility] Comment on above: Performed By: #### L IPA, MG, CMP, VIJI ####[facility] Mnqxcdtjjs2822[address] [place], [place] [address]Dr. Tadeo Smyth Sodium [Moles/Vol] 142 mmol/L Normal 136-145 [facility] Comment on above: Performed By: #### L IPA, MG, CMP, VIJI ####[facility] Ehboawuawu026[address] [place], [place] [address]Dr. Tadeo Smyth Urea nitrogen [Mass/Vol] 8.0 mg/dL Normal 7.0-18.0 [facility] Comment on above: Performed By: #### L IPA, MG, CMP, VIJI ####[facility] Edqytqwlpw2215[address] [place], [place] [address]Dr. Tadeo Smyth Urea nitrogen/Creatinine [Mass ratio] 10.8 mg/mg Normal [facility] Comment on above: Performed By: #### L IPA, MG, CMP, VIJI ####[facility] Sbbnvphsfv5335[address] [place], [place] [address]Dr. Tadeo Smyth AMMONIAon 11-01-2022 Ammonia (P) [Moles/Vol] 18 umol/L Normal 11-32 [facility] Comment on above: Performed By: #### A MM ####[facility] Agtbuuezjc0113[address] [place], [place] [address]Dr. Tadeo Smyth AMYLASEon 11-01-2022 Amylase [Catalytic activity/Vol] 43 U/L Normal 25-115 [facility] Comment on above: Performed By: #### M G, VIJI, LIPA, CMP ####[facility] Atpbwinnzp4316[address] [place], [place] [address]Dr. Tadeo Smyth CBC AUTO DIFFon 11-01-2022 BASO # 0.0 103/ul Normal 0.0-0.1 [facility] Comment on above: Performed By: #### C BC ####[facility] Qwhsrbljga7179[address] [place], [place] [address]Dr. Tadeo Smyth Basophils/100 WBC (Bld) 0.6 % Normal 0.2-2.0 [facility] Comment on above: Performed By: #### C BC ####[facility] Ubeecllxfg4608 [place] [phone]. Tadeo Smyth EO # 0.1 103/ul Normal 0.0-0.7 [facility] Comment on above: Performed By: #### C BC ####[facility] Nyinouslzp9936 [place] [address]Dr. Tadeo Smyth Eosinophils/100 WBC (Bld) 1.5 % Normal 0.9-7.0 [facility] Comment on above: Performed By: #### C BC ####[facility] Hbeonwbyva1025[address] [place], [place] [address]Dr. Tadeo Smyth Erythrocyte distribution width (RBC) [Ratio] 13.5 % Normal 11.0-15.0 [facility] Comment on above: Performed By: #### C BC ####[facility] Kvbaxuldhx55[address] [place], [place] [address]Dr. Tadeo Smyth Hematocrit (Bld) [Volume fraction] 37.7 % Normal 36.0-48.0 [facility] Comment on above: Performed By: #### C BC ####[facility] Epiyvanckf85[address] [place], [place] [address]Dr. Tadeo Smyth Hemoglobin (Bld) [Mass/Vol] 12.5 g/dL Normal 12.0-16.0 [facility] Comment on above: Performed By: #### C BC ####[facility] Rxyehxbvbw6544[address] [place], [place] [address]Dr. Tadeo Smyth IG # 0.02 10e3/ul Normal 0.00-0.03 [facility] Comment on above: Performed By: #### C BC ####[facility] Bshjoewxxu9826[address] [place], [place] [address]Dr. Tadeo Smyth IG % 0.4 % Normal 0.0-0.5 [facility] Comment on above: Performed By: #### C BC ####[facility] Ctcqnzxzuq[address] [place], [place] [address]Dr. Tadeo Smyth LYMPH # 1.3 103/ul Normal 1.2-3.8 [facility] Comment on above: Performed By: #### C BC ####[facility] Twytnseage0260 [place] [phone]. Margotnicole Smyth Lymphocytes/100 WBC (Bld) 23.9 % Normal 20.5-60.0 [facility] Comment on above: Performed By: #### C BC ####[facility] Yaozpvomue3276 [place] [phone]. Tadeo Smyth MANUAL DIFF REQ NO Normal [facility] Comment on above: Performed By: #### C BC ####[facility] [facility] [address] [place] [id number]. Tadeo Smyth MCH (RBC) [Entitic mass] 29.8 pg Normal 26.7-34.0 [facility] Comment on above: Performed By: #### C BC ####[facility] Urtvtchwew[address] [place], [place] [address]Dr. Tadeo Smyth MCHC (RBC) [Mass/Vol] 33.2 g/dL Normal 29.9-35.2 [facility] Comment on above: Performed By: #### C BC ####[facility] Ytcezuqkif[address] [place], [place] [address]Dr. Tadeo Smyth MCV (RBC) [Entitic vol] 89.8 fL Normal 81.0-99.0 [facility] Comment on above: Performed By: #### C BC ####[facility] Gfrxomwuft[address] [place], [place] [address]Dr. Tadeo Smyth MONO # 0.3 103/ul Normal 0.3-0.8 [facility] Comment on above: Performed By: #### C BC ####[facility] Eiedndefrz4178[address] [place], [place] [address]Dr. Tadeo Smyth Monocytes/100 WBC (Bld) 5.2 % Normal 1.7-12.0 [facility] Comment on above: Performed By: #### C BC ####[facility] Hemjojmxhu1983[address] [place], [place] [address]Dr. Tadeo Smyth NEUT # 3.6 103/ul Normal 1.4-6.5 [facility] Comment on above: Performed By: #### C BC ####[facility] Ddfttulzce4[address] [place] [id number]. Tadeo Smyth Neutrophils/100 WBC (Bld) 68.4 % Normal 43.0-75.0 [facility] Comment on above: Performed By: #### C BC ####[facility] Ekl[address]ksw[address] [place] [address]Dr. Tadeo Smyth Platelet mean volume (Bld) [Entitic vol] 9.0 fL Critically low 9.5-13.5 [facility] Comment on above: Performed By: #### C BC ####[facility] Uufaxwvhie16[address] [place], [place] [address]Dr. Tadeo Smyth PLT 356 103/ul Normal 150-450 [facility] Comment on above: Performed By: #### C BC ####[facility] Qbuvszlbiw260[address] [place], [place] [address]Dr. Tadeo Smyth RBC 4.20 106/ul Normal 4.20-5.40 [facility] Comment on above: Performed By: #### C BC ####[facility] Epflucojbo8938[address] [place], [place] [address]Dr. Tadeo Smyth WBC 5.2 103/ul Normal 4.0-11.0 [facility] Comment on above: Performed By: #### C BC ####[facility] Gvtaguvsye1257[address] [place], [place] [address]Dr. Tadeo Smyth CT ABD/PELV W CONon 11-01-[address] ABD/PELV W CON Normal [facility] CULTURE BLOODon 11-01-2022 Microscopic examination of blood, culture Culture Observations: NO GROWTH AT 5 DAYS. Isolate 1 BC_BA_NA Normal [facility] Comment on above: Performed By: #### B LDCX2 ####[facility] Jexvvihchj9824[address] [place], [place] [address]Dr. Tadeo Smyth Performed By: #### B LDCX1 ####[facility] Rabtmgnopy69[address] [place], [place] [address]Dr. Tadeo Smyth CULTURE URINEon 11-01-2022 CULTURE URINE Culture Observations : LIGHT GROWTH OF MIXED GENITAL SINTIA. NO POTENTIAL PATHOGENS SEEN. Normal [facility] Comment on above: Performed By: #### U RCX ####[facility] Rdouwbpytv1646[address] [place], [place] [address]Dr. Tadeo Smyth Covid-19 PCR ([facility])on 10-07 SARS-CoV-2 (COVID-19) RNA CHEN+probe Ql (Unsp spec) Not detected Normal NOT DETECTED [facility] Comment on above: Result Comment: When [...] for this test is supported by the [place] of Health and Human Service's declaration that [...] be used). Performed By: #### C VDTBH ####[facility] Spjuaqmpao0686[address] [place], [place] [address]Dr. Tadeo Haja LACTATE/LACTIC ACIDon 2022 Lactate [Moles/Vol] 0.7 mmol/L Normal 0.4-1.9 [facility] Comment on above: Performed By: #### L ACT ####[facility] Kewyefevrg1332[address] [place], [place] [address]Dr. Tadeo Haja LIPASEon 11-01-2022 Lipase [Catalytic activity/Vol] 58.0 U/L Critically low 73.0-393.0 [facility] Comment on above: Performed By: #### M G, VIJI, LIPA, CMP ####[facility] Qljksukdtd[address] [place], [place] [address]Dr. Tadeo Smyth MAGNESIUMon 11-01-2022 Magnesium [Mass/Vol] 2.0 mg/dL Normal 1.8-2.4 [facility] Comment on above: Performed By: #### M Ayan, VIJI, LIPA, CMP ####[facility] [address] [address]Dr. Tadeo Smyth PROF 14(COMP METB)on 023 Albumin [Mass/Vol] 3.6 g/dL Normal 3.4-5.0 [facility] Comment on above: Performed By: #### M G, VIJI, LIPA, CMP ####[facility] [address] [place] [place] [address]Dr. Tadeo Smyth Albumin/Globulin [Mass ratio] 1.0 {ratio} Normal [facility] Comment on above: Performed By: #### M G, VIJI, LIPA, CMP ####[facility] [address]kg[address] [place] [address]Dr. Tadeo Smyth ALP [Catalytic activity/Vol] 164 U/L Critically high 46-116 [facility] Comment on above: Performed By: #### M Ayan, VIJI, LIPA, CMP ####[facility] Zgopzyzidv87[address] [place], [place] [address]Dr. Tadeo Smyth ALT [Catalytic activity/Vol] 22 U/L Normal 14-59 [facility] Comment on above: Performed By: #### M G, VIJI, LIPA, CMP ####[facility] Bu[address]wqq[address] [place] [place] [address]Dr. Tadeo Smyth Anion gap [Moles/Vol] 11.5 mmol/L Normal [facility] Comment on above: Performed By: #### M G, VIJI, LIPA, CMP ####[facility] Yhxfgszdjx33[address] [place], [place] [address]Dr. Tadeo Smyth AST [Catalytic activity/Vol] 17 U/L Normal 15-37 [facility] Comment on above: Performed By: #### M G, VIJI, LIPA, CMP ####[facility] Ixqszfmqkx[address] [place] [address]Dr. Tadeo Smyth Bilirubin [Mass/Vol] 0.4 mg/dL Normal 0.2-1.0 [facility] Comment on above: Performed By: #### M Ayan, FLACO HALLMANA, CMP ####[facility] [address]bf[address]ooan[address] [place] [address]Dr. Tadeo Smyth Calcium [Mass/Vol] 9.1 mg/dL Normal 8.5-10.1 [facility] Comment on above: Performed By: #### M VIJI Botello LIPA, CMP ####[facility] Mjdpfetbjr7[address] [place], [place] [address]Dr. Tadeo Smyth Chloride [Moles/Vol] 105 mmol/L Normal 98-107 [facility] Comment on above: Performed By: #### VIJI White LIPA, CMP ####[facility] Bcgqqnnven4968[address] [place], [place] [address]Dr. Tadeo Smyth CO2 [Moles/Vol] 27.6 mmol/L Normal 21.0-32.0 [facility] Comment on above: Performed By: #### VIJI White LIPA, CMP ####[facility] Lzknjdrwtn7514[address] [place], [place] [address]Dr. Tadeo Smyth Creatinine [Mass/Vol] 0.72 mg/dL Normal 0.55-1.02 [facility] Comment on above: Performed By: #### M VIJI Botello LIPA, CMP ####[facility] Oemyqelkzf15[address] [place], [place] [address]Dr. Tadeo Smyth EGFR-AF CROATIAN >60 Normal >=60 [facility] Comment on above: Performed By: #### M Ayan, VIJI, LIPA, CMP ####[facility] Dcznozqtwj27[address] [place], [place] [address]Dr. Tadeo Smyth EGFR-NON AF CROATIAN >60 Normal >=60 [facility] Comment on above: Performed By: #### M Ayan, VIJI, LIPA, CMP ####[facility] Nspahyentt[address] [place], [place] [address]Dr. Tadeo Smyth Globulin (S) [Mass/Vol] 3.6 g/dL Normal [facility] Comment on above: Performed By: #### M Ayan, VIJI LIPA, CMP ####[facility] [address] [place] [place] [address]Dr. Tadeo Smyth Glucose [Mass/Vol] 100 mg/dL Normal 74-106 [facility] Comment on above: Performed By: #### M G, VIJI, LIPA, CMP ####[facility] Utkmtfkxwm[address] [place] [place] [address]Dr. Tadeo Smyth Potassium [Moles/Vol] 4.1 mmol/L Normal 3.5-5.1 [facility] Comment on above: Performed By: #### M G, VIJI, LIPA, CMP ####[facility] [address]cl[address] [place] [address]Dr. Margotnicole Smyth Protein [Mass/Vol] 7.2 g/dL Normal 6.4-8.2 [facility] Comment on above: Performed By: #### M G, VIJI, LIPA, CMP ####[facility] [address]of[address] [place] [address]Dr. Tadeo Smyth Sodium [Moles/Vol] 140 mmol/L Normal 136-145 [facility] Comment on above: Performed By: #### M G, VIJI, LIPA, CMP ####[facility] Fsxtidrmsf[address] [place], [place] [address]Dr. Taedo Smyth Urea nitrogen [Mass/Vol] 15.0 mg/dL Normal 7.0-18.0 [facility] Comment on above: Performed By: #### M G, VIJI, LIPA, CMP ####[facility] [address] [place] [address]Dr. Margotnicole Haja Urea nitrogen/Creatinine [Mass ratio] 20.8 mg/mg Normal [facility] Comment on above: Performed By: #### M G, VIJI, LIPA, CMP ####[facility] X[address]hr[address]qrk[address] [place] [address]Dr. Tadeo Smyth UA RANDOM W/MICROSCOPICon BACTERIA TRACE Abnormal NONE SEEN [facility] Comment on above: Performed By: #### U AMIC ####[facility] Hgntxnrdeh[address] [place] [address]Dr. Tadeo Smyth Bilirubin Ql (U) Negative Normal NEGATIVE [facility] Comment on above: Performed By: #### U AMIC ####[facility] Frjqpesvoh0816[address] [place], [place] [address]Dr. Tadeo Smyth CAST NONE SEEN Normal NONE SEEN [facility] Comment on above: Performed By: #### U AMIC ####[facility] Tpsfkvtsou88[address] [place], [place] [address]Dr. Tadeo Smyth Clarity (U) CLEAR Normal CLEAR [facility] Comment on above: Performed By: #### U AMIC ####[facility] Ayzqhxuade[address] [place], [place] [address]Dr. Tadeo Smyth Color (U) LT. YELLOW Normal YELLOW [facility] Comment on above: Performed By: #### U AMIC ####[facility] Rvjjhafskv[address] [place], [place] [address]Dr. Tadeo Smyth Crystals LM Nom (Urine sed) NONE SEEN Normal NONE SEEN [facility] Comment on above: Performed By: #### U AMIC ####[facility] Ymfrdmjkih5[address] [place], [place] [address]Dr. Tadeo Smyth Epithelial cells LM Ql (Urine sed) RARE Normal NONE SEEN /RARE [facility] Comment on above: Performed By: #### U AMIC ####[facility] Havblseygl[address] [place], [place] [address]Dr. Tadeo Smyth Glucose Ql (U) Negative Normal NEGATIVE [facility] Comment on above: Performed By: #### U AMIC ####[facility] Bkyfesplyk33[address] [place], [place] [address]Dr. Tadeo Smyth Hemoglobin Ql (U) TRACE-LYSED Abnormal NEGATIVE [facility] Comment on above: Performed By: #### U AMIC ####[facility] Xaatevvtcz[address] [place], [place] [address]Dr. Tadeo Smyth Ketones Ql (U) Negative Normal NEGATIVE [facility] Comment on above: Performed By: #### U AMIC ####[facility] Vjhjhlprtc65[address] [place], [place] [address]Dr. Tadeo Smyth LEUKOCYTES Negative Normal NEGATIVE [facility] Comment on above: Performed By: #### U AMIC ####[facility] Ecarpkmkyh[address] [place] [address]Dr. Margotnicole Haja MUCOUS NONE SEEN Normal NONE SEEN [facility] Comment on above: Performed By: #### U AMIC ####[facility] Icrvwzwiop69[address] [place] [address]Dr. Tadeo Smyth Nitrite Ql (U) Negative Normal NEGATIVE [facility] Comment on above: Performed By: #### U AMIC ####[facility] Slywjxiqjq7[address] [place] [address]Dr. Tadeo Smyth pH (U) 6.0 [pH] Normal 5-9 [facility] Comment on above: Performed By: #### U AMIC ####[facility] Xudrodmwhd8837[address] [place], [place] [address]Dr. Tadeo Smyth RBC 0-2 Normal 0-2 [facility] Comment on above: Performed By: #### U AMIC ####[facility] Bamhovkvsb[address] [place], [place] [address]Dr. Tadeo Smyth SPEC GRAVITY 1.010 Normal 1.005-<=1.0 25 [facility] Comment on above: Performed By: #### U AMIC ####[facility] Wxukkftdqd[address] [place], [place] [address]Dr. Tadeo Smyth UA PROTEIN Negative Normal NEGATIVE/ TRACE [facility] Comment on above: Performed By: #### U AMIC ####[facility] Lxkkjaryff7[address] [place], [place] [address]Dr. Tadeo Smyth Urobilinogen Qn (U) 0.2 {Benito'U}/dL Normal 0.2 - 1. 0 [facility] Comment on above: Performed By: #### U AMIC ####[facility] Hcaptkdnjm4787[address] [place], [place] [address]Dr. Tadeo Smyth WBC 0-2 Abnormal NONE SEEN [facility] Comment on above: Performed By: #### U AMIC ####[facility] Shdbniijkp8448[address] [place], [place] [address]Dr. Tadeo Smyth Activated partial thrombopla stin time (aPTT) in platelet poor plasma by coagulation aOrdered By: Conner Griffith on 10-26-2022 aPTT Coag (PPP) [Time] 30.8 s 25.1-36.5 [facility] Albumin [Mass/volume] in Ser um or PlasmaOrdered By: Conner Griffith on 10-26-2022 Albumin [Mass/Vol] 3.6 g/dL 3.2-5.5 [facility] Automated erythrocytes count in urine sediment (number/area)Ordered By: Conner Griffith on 10-26-2022 RBC Auto (Urine sed) [#/Area] 0-1 [HPF] 0-4 [facility] Automated leukocytes count i n urine sediment (number/area)Ordered By: Conner Griffith on 10-26-2022 WBC Auto (Urine sed) [#/Area] None seen [HPF] 0-4 [facility] Basophils Auto (Bld) [#/Vol] Ordered By: Conner Griffith on 10-26-2022 Basophils (Bld) [#/Vol] 0.0 10*3/uL 0.0-0.2 [facility] Basophils/100 WBC Auto (Bld) Ordered By: Conner Griffith on 10-26-2022 Basophils/100 WBC (Bld) 0.6 % . [facility] Bilirubin Test strip Ql (U)O rdered By: Conner Griffith on 10-26-2022 Bilirubin Ql (U) Negative Negative [facility] CT abdomen pelvis w conon CT abdomen pelvis w con [facility] [place] [address] CT Scan Report Signed Patient: Constantino Cardoso MR#: [id number] : 1970 Acct:[id number] Age/Sex: 52 / F ADM Date: 10/26/22 Loc: ER Room: Type: [facility] ER Attending Dr: Copies to: Conner [...] Columba Domínguez M.D.10/26/2022 7:46 AM Dictation Location: [place] [address] Transcribed By: [facility] 10/26/22 0746 Dictated By: Columba Domínguez MD 10/26/22 0738 Signed By: 10/26/22 07 Normal [facility] Color Auto (U)Ordered By: Kevin Griffith on 10-26-2022 Color (U) Yellow Yellow [facility] Complete Blood Count Auto Di ffon 10-26-2022 Basophils (Bld) [#/Vol] 0.0 10*3/uL Normal 0.0-0.2 [facility] Comment on above: Result Comment: PERF ORMED BY: [place] [address] PATHOLOGIST VENEER LAYER ROOSEVELT KEYES M.D. Performed By: #### H EPATIC, CBC, BMP, LIPASE #### [address] Basophils/100 WBC (Bld) 0.6 % Normal . [facility] Comment on above: Performed By: #### H EPATIC, CBC, BMP, LIPASE #### [address] Eosinophils (Bld) [#/Vol] 0.2 10*3/uL Normal 0.0-0.45 [facility] Comment on above: Performed By: #### H EPATIC, CBC, BMP, LIPASE #### [address] Eosinophils/100 WBC (Bld) 3.3 % Normal . [facility] Comment on above: Performed By: #### H EPATIC, CBC, BMP, LIPASE #### [address] Erythrocyte distribution width (RBC) [Ratio] 14.5 % Normal 11.9-15.3 [facility] Comment on above: Performed By: #### H EPATIC, CBC, BMP, LIPASE #### [address] Hematocrit (Bld) [Volume fraction] 36.7 % Normal 34.0-46.4 [facility] Comment on above: Performed By: #### H EPATIC, CBC, BMP, LIPASE #### [address] Hemoglobin (Bld) [Mass/Vol] 12.1 g/dL Normal 11.8-15.4 [facility] Comment on above: Performed By: #### H EPATIC, CBC, BMP, LIPASE #### [address] Lymphocytes (Bld) [#/Vol] 1.9 10*3/uL Normal 1.00-4.8 [facility] Comment on above: Performed By: #### H EPATIC, CBC, BMP, LIPASE #### [address] Lymphocytes/100 WBC (Bld) 29.7 % Normal . [facility] Comment on above: Performed By: #### H EPATIC, CBC, BMP, LIPASE #### [address] MCH (RBC) [Entitic mass] 29.3 pg Normal 24.7-34.3 [facility] Comment on above: Performed By: #### H EPATIC, CBC, BMP, LIPASE #### [address] MCV (RBC) [Entitic vol] 88.5 fL Normal 80-100 [facility] Comment on above: Performed By: #### H EPATIC, CBC, BMP, LIPASE #### [address] Mean Corpuscular HGB Conc 33.1 g/dL Normal 32.0-35.0 [facility] Comment on above: Performed By: #### H EPATIC, CBC, BMP, LIPASE #### [address] Monocytes (Bld) [#/Vol] 0.4 10*3/uL Normal 0.0-0.8 [facility] Comment on above: Performed By: #### H EPATIC, CBC, BMP, LIPASE #### [address] Monocytes/100 WBC (Bld) 16.27 % Normal 0.00-20.00 [facility] Comment on above: Performed By: #### H EPATIC, CBC, BMP, LIPASE #### [address] Monocytes/100 WBC (Bld) 7.1 % Normal . [facility] Comment on above: Performed By: #### H EPATIC, CBC, BMP, LIPASE #### [address] Neutrophils (Bld) [#/Vol] 3.7 10*3/uL Normal 1.8-7.7 [facility] Comment on above: Performed By: #### H EPATIC, CBC, BMP, LIPASE #### [address] Neutrophils/100 WBC (Bld) 59.3 % Normal . [facility] Comment on above: Performed By: #### H EPATIC, CBC, BMP, LIPASE #### [address] NRBC% 0.3 /100{WBC} Normal 0-0.5 [facility] Comment on above: Performed By: #### H EPATIC, CBC, BMP, LIPASE #### [address] Platelet mean volume (Bld) [Entitic vol] 7.5 fL Normal 6.3-10.7 [facility] Comment on above: Performed By: #### H EPATIC, CBC, BMP, LIPASE #### [address] Platelets (Bld) [#/Vol] 379 10*3/uL Normal 150-450 [facility] Comment on above: Performed By: #### H EPATIC, CBC, BMP, LIPASE #### [address] RBC (Bld) [#/Vol] 4.14 10*6/uL Normal 3.60-5.00 [facility] Comment on above: Performed By: #### H EPATIC, CBC, BMP, LIPASE #### [address] WBC (Bld) [#/Vol] 6.3 10*3/uL Normal 3.8-11.6 [facility] Comment on above: Performed By: #### H EPATIC, CBC, BMP, LIPASE #### [address] [place] [address] [place] Comprehensive Metabolic Pane miranda 10-26-2022 Albumin [Mass/Vol] 3.6 g/dL Normal 3.2-5.5 [facility] Comment on above: Performed By: #### H EPATIC, CBC, BMP, LIPASE #### [facility] [address] Albumin/Globulin [Mass ratio] 1.1 {ratio} Normal [facility] Comment on above: Performed By: #### H EPATIC, CBC, BMP, LIPASE #### [facility] [address] [place] [address] ALP [Catalytic activity/Vol] 121 U/L High 32-92 [facility] Comment on above: Performed By: #### H EPATIC, CBC, BMP, LIPASE #### [facility] [address] [place] [address] ALT [Catalytic activity/Vol] 18 U/L Normal 10-60 [facility] Comment on above: Performed By: #### H EPATIC, CBC, BMP, LIPASE #### [facility] [address] [place] [address] Anion gap [Moles/Vol] 11.3 mmol/L Normal 6.0-15.0 [facility] Comment on above: Performed By: #### H EPATIC, CBC, BMP, LIPASE #### [facility] [address] [place] [address] AST [Catalytic activity/Vol] 19 U/L Normal 10-42 [facility] Comment on above: Performed By: #### H EPATIC, CBC, BMP, LIPASE #### [facility] [address] [place] [address] Bilirubin [Mass/Vol] 0.4 mg/dL Normal 0.3-1.2 [facility] Comment on above: Performed By: #### H EPATIC, CBC, BMP, LIPASE #### [facility] [address] [place] [address] Calcium [Mass/Vol] 8.9 mg/dL Normal 8.2-10.2 [facility] Comment on above: Performed By: #### H EPATIC, CBC, BMP, LIPASE #### [address] Chloride [Moles/Vol] 108 mmol/L Normal 95-114 [facility] Comment on above: Performed By: #### H EPATIC, CBC, BMP, LIPASE #### [address] CO2 [Moles/Vol] 25.1 mmol/L Normal 22.0-30.0 [facility] Comment on above: Performed By: #### H EPATIC, CBC, BMP, LIPASE #### [address] Creatinine [Mass/Vol] 0.81 mg/dL Normal 0.44-1.03 [facility] Comment on above: Performed By: #### H EPATIC, CBC, BMP, LIPASE #### [address] Creatinine Clr Calc Pharmacy 93.01 [facility] Comment on above: Performed By: #### H EPATIC, CBC, BMP, LIPASE #### [address] Estimated GFR ( Roberto > 60 [facility] Comment on above: Result Comment: GFR estimated reference range: According to KDOQI guidelines, <60 ml/min/1.73m2 is sufficient to diagnose a patient with chronic kidney disease. Performed By: #### H EPATIC, CBC, BMP, LIPASE #### [address] Estimated GFR (Non- Am > 60 [facility] Comment on above: Performed By: #### H EPATIC, CBC, BMP, LIPASE #### [address] Globulin (S) [Mass/Vol] 3.2 g/dL [facility] Comment on above: Performed By: #### H EPATIC, CBC, BMP, LIPASE #### [address] Glucose [Mass/Vol] 95 mg/dL Normal 70-100 [facility] Comment on above: Result Comment: [facility] Glucose Reference Range is dependent on time and content of last meal. Glucose of more than 200 mg/dL in a nonstressed, ambulatory subject supports the diagnosis of Diabetes Mellitus. ADA recommended reference range Performed By: #### H EPATIC, CBC, BMP, LIPASE #### [facility] [address] Potassium [Moles/Vol] 3.4 mmol/L Low 3.5-5.1 [facility] Comment on above: Performed By: #### H EPATIC, CBC, BMP, LIPASE #### [address] Protein [Mass/Vol] 6.8 g/dL Normal 6.1-7.9 [facility] Comment on above: Performed By: #### H EPATIC, CBC, BMP, LIPASE #### [address] Sodium [Moles/Vol] 141 mmol/L Normal 136-146 [facility] Comment on above: Performed By: #### H EPATIC, CBC, BMP, LIPASE #### [address] Urea nitrogen [Mass/Vol] 18 mg/dL Normal 9-23 [facility] Comment on above: Performed By: #### H EPATIC, CBC, BMP, LIPASE #### [place] [address] [place] Creatinine and Glomerular fi ltration rate.predicted panel (S/P/Bld)Ordered By: Conner Griffith on 10-26-2022 Creatinine [Mass/Vol] 0.81 mg/dL 0.44-1.03 [facility] Dipstick and Microscopicon 0 10-26-2022 Appearance (U) Clear Normal Clear [facility] Comment on above: Order Comment: Name Collection Type:: Clean-Voided Midstream Performed By: #### H EPATIC, CBC, BMP, LIPASE #### [place] [address] [place] Bacteria,Urine None Seen Normal None Seen [facility] [facility] Comment on above: Order Comment: Name Collection Type:: Clean-Voided Midstream Performed By: #### H EPATIC, CBC, BMP, LIPASE #### [facility] [address] [place] [address] [place] Bilirubin,Urine Negative Normal Negative [facility] Comment on above: Order Comment: Name Collection Type:: Clean-Voided Midstream Performed By: #### H EPATIC, CBC, BMP, LIPASE #### [facility] [address] [place] [address] Color (U) Yellow Normal Yellow [facility] Comment on above: Order Comment: Name Collection Type:: Clean-Voided Midstream Performed By: #### H EPATIC, CBC, BMP, LIPASE #### [facility] [address] [place] [address] Glucose Ql (U) Normal Normal Normal [facility] Comment on above: Order Comment: Name Collection Type:: Clean-Voided Midstream Performed By: #### H EPATIC, CBC, BMP, LIPASE #### [facility] [address] [place] [address] Hyaline Casts,Urine None Seen Normal 0-8 [facility] Comment on above: Order Comment: Name Collection Type:: Clean-Voided Midstream Result Comment: PERF ORMED BY: [place] [address] PATHOLOGIST VENEER LAYER ROOSEVELT KEYES M.D. Performed By: #### H EPATIC, CBC, BMP, LIPASE #### [facility] [address] [place] [address] [place] Ketones Ql (U) Negative Normal Negative [facility] Comment on above: Order Comment: Name Collection Type:: Clean-Voided Midstream Performed By: #### H EPATIC, CBC, BMP, LIPASE #### [facility] [address] [place] [address] [place] Leukocyte esterase Test strip Ql (U) 1+ High Negative [facility] Comment on above: Order Comment: Name Collection Type:: Clean-Voided Midstream Performed By: #### H EPATIC, CBC, BMP, LIPASE #### [address] Nitrite,Urine Negative Normal Negative [facility] Comment on above: Order Comment: Name Collection Type:: Clean-Voided Midstream Performed By: #### H EPATIC, CBC, BMP, LIPASE #### [address] Occult Blood,Urine Negative Normal Negative [facility] Comment on above: Order Comment: Name Collection Type:: Clean-Voided Midstream Result Comment: PERF ORMED BY: [place] [address] PATHOLOGIST VENEER LAYER ROOSEVELT KEYES M.D. Performed By: #### H EPATIC, CBC, BMP, LIPASE #### [address] pH (U) 6.5 [pH] Normal 5.0-9.0 [facility] Comment on above: Order Comment: Name Collection Type:: Clean-Voided Midstream Performed By: #### H EPATIC, CBC, BMP, LIPASE #### [address] Protein,Urine Negative Normal Negative [facility] Comment on above: Order Comment: Name Collection Type:: Clean-Voided Midstream Performed By: #### H EPATIC, CBC, BMP, LIPASE #### [address] RBC LM.HPF (Urine sed) [#/Area] 0 /[HPF] Normal 0-4 [facility] Comment on above: Order Comment: Name Collection Type:: Clean-Voided Midstream Performed By: #### H EPATIC, CBC, BMP, LIPASE #### [address] Specificy [place],Urine 1.019 Normal 1.001-1.030 [facility] Comment on above: Order Comment: Name Collection Type:: Clean-Voided Midstream Performed By: #### H EPATIC, CBC, BMP, LIPASE #### [address] [place] [address] [place] Squamous Epithelial Cell,Urine 1-2 Normal 0-2 [facility] Comment on above: Order Comment: Name Collection Type:: Clean-Voided Midstream Performed By: #### H EPATIC, CBC, BMP, LIPASE #### [facility] [address] Urobilinogen,Urine Normal Normal Normal [facility] Comment on above: Order Comment: Name Collection Type:: Clean-Voided Midstream Performed By: #### H EPATIC, CBC, BMP, LIPASE #### [facility] [address] WBC,Urine None Seen Normal 0-4 [facility] Comment on above: Order Comment: Name Collection Type:: Clean-Voided Midstream Performed By: #### H EPATIC, CBC, BMP, LIPASE #### [facility] [address] [place] [address] Eosinophils Auto (Bld) [#/Vo l]Ordered By: Conner Griffith on 10-26-2022 Eosinophils (Bld) [#/Vol] 0.2 10*3/uL 0.0-0.45 [facility] Eosinophils/100 WBC Auto (Bl d)Ordered By: Conner Griffith on 10-26-2022 Eosinophils/100 WBC (Bld) 3.3 % . [facility] Erythrocyte distribution wid th Auto (RBC) [Ratio]Ordered By: Conner Griffith on 10-26-2022 Erythrocyte distribution width (RBC) [Ratio] 14.5 % 11.9-15.3 [facility] Estimated glomerular filtrat ion rate (GFR) non- AmericanOrdered By: Conner Griffith on 10-26-2022 GFR/1.73 sq M.predicted among non-blacks MDRD (S/P/Bld) [Vol rate/Area] > 60 mL/Min [facility] Globulin Calc (S) [Mass/Vol] Ordered By: Conner Griffith on 10-26-2022 Globulin (S) [Mass/Vol] 3.2 g/dL [facility] Hematocrit Auto (Bld) [Volum e fraction]Ordered By: Conner Griffith on 10-26-2022 Hematocrit (Bld) [Volume fraction] 36.7 % 34.0-46.4 [facility] Hemoglobin [Mass/volume] in BloodOrdered By: Conner Griffith on 10-26-2022 Hemoglobin (Bld) [Mass/Vol] 12.1 g/dL 11.8-15.4 [facility] Ketones Auto test strip (U) [Mass/Vol]Ordered By: Conner Griffith on 10-26-2022 Ketones (U) [Mass/Vol] Negative Negative [facility] Laboratory - Chemistry and C hemistry - challengeOrdered By: Conner Griffith on 10-26-2022 Lipase [Catalytic activity/Vol] 37.0 U/L [facility] Laboratory - CoagulationOrde red By: Conner Griffith on 10-26-2022 PT Coag (PPP) [Time] 10.6 s 9.0-12.9 [facility] Laboratory - UrinalysisOrder ed By: Conner Griffith on 10-26-2022 Hyaline casts LM Ql (Urine sed) None seen [LPF] 0-8 [facility] Lactic Acidon 10-26-2022 Lactate [Moles/Vol] 1.0 mmol/L Normal 0.5-2.2 [facility] Comment on above: Result Comment: PERF ORMED BY: [place] [address] PATHOLOGIST VENEER LAYER ROOSEVELT KEYES M.D. Performed By: #### H EPATIC, CBC, BMP, LIPASE #### [address] Leukocytes [#/volume] correc jun for nucleated erythrocytes in Blood by Automated counOrdered By: Conner Griffith on 10-26-2022 WBC corrected for nucl RBC Auto (Bld) [#/Vol] 6.3 10*3/uL 3.8-11.6 [facility] Lipaseon 10-26-2022 Lipase [Catalytic activity/Vol] 37.0 U/L Normal [facility] Comment on above: Result Comment: PERF ORMED BY: [address] [place] [address] PATHOLOGIST VENEER LAYER ROOSEVELT KEYES M.D. Performed By: #### H EPATIC, CBC, BMP, LIPASE #### [facility] [address] Lymphocytes Auto (Bld) [#/Vo l]Ordered By: Conner Griffith on 10-26-2022 Lymphocytes (Bld) [#/Vol] 1.9 10*3/uL 1.00-4.8 [facility] Lymphocytes/100 WBC Auto (Bl d)Ordered By: Conner Griffith on 10-26-2022 Lymphocytes/100 WBC (Bld) 29.7 % . [facility] MCH Auto (RBC) [Entitic mass ]Ordered By: Conner Griffith on 10-26-2022 MCH (RBC) [Entitic mass] 29.3 pg 24.7-34.3 [facility] MCHC Auto (RBC) [Mass/Vol]Or dered By: Conner Griffith on 10-26-2022 MCHC (RBC) [Mass/Vol] 33.1 g/dL 32.0-35.0 [facility] MCV Auto (RBC) [Entitic vol] Ordered By: Conner Griffith on 10-26-2022 MCV (RBC) [Entitic vol] 88.5 fL 80-100 [facility] Monocyte distribution width [Entitic volume] in Blood by AutomatedOrdered By: Conner Griffith on 10-26-2022 Monocyte distribution width Auto (Bld) [Entitic vol] 16.27 % 0.00-20.00 [facility] Monocytes Auto (Bld) [#/Vol] Ordered By: Conner Griffith on 10-26-2022 Monocytes (Bld) [#/Vol] 0.4 10*3/uL 0.0-0.8 [facility] Monocytes/100 WBC Auto (Bld) Ordered By: Conner Griffith on 10-26-2022 Monocytes/100 WBC (Bld) 7.1 % . [facility] Neutrophils Auto (Bld) [#/Vo l]Ordered By: Conner Griffith on 10-26-2022 Neutrophils (Bld) [#/Vol] 3.7 10*3/uL 1.8-7.7 [facility] Neutrophils/100 WBC Auto (Bl d)Ordered By: Conner Griffith on 10-26-2022 Neutrophils/100 WBC (Bld) 59.3 % . [facility] Nitrite Test strip Ql (U)Ord ered By: Conner Griffith on 10-26-2022 Nitrite Ql (U) Negative Negative [facility] No Panel InformationOrdered By: Conner Griffith on 10-26-2022 Estimated GFR () > 60 mL/Min [facility] Comment on above: GFR estimated refere nce range: According to KDOQI guidelines, <60 ml/min/1.73m2 is sufficient to diagnose a patient with chronic kidney disease. Pharmacy Creatinine Clearance (Chem 93.01 [facility] Nucleated erythrocytes [Pres ence] in Blood by Automated countOrdered By: Conner Griffith on 10-26-2022 Nucleated RBC Auto Ql (Bld) 0.3 /100{WBC} 0-0.5 [facility] Partial Thromboplastin Timeo n 10-26-2022 aPTT Coag (Bld) [Time] 30.8 s Normal 25.1-36.5 [facility] Comment on above: Result Comment: PERF ORMED BY: [place] [address] PATHOLOGIST VENEER LAYER ROOSEVELT KEYES M.D. Performed By: #### H EPATIC, CBC, BMP, LIPASE #### [address] Platelet mean volume Auto (B ld) [Entitic vol]Ordered By: Conner Griffith on 10-26-2022 Platelet mean volume (Bld) [Entitic vol] 7.5 fL 6.3-10.7 [facility] Platelet poor plasma interna tional normalized ratio (INR) by coagulation assay (relatOrdered By: Conner Griffith on 10-26-2022 INR Coag (PPP) [Relative time] 0.9 {INR} [facility] Comment on above: INR Therapeutic Rang e [...] 10-26-2022 Platelets (Bld) [#/Vol] 379 10*3/uL 150-450 [facility] Protein Auto test strip (U) [Mass/Vol]Ordered By: Conner Griffith on 10-26-2022 Protein (U) [Mass/Vol] Negative Negative [facility] Protein [Mass/volume] in Ser um or PlasmaOrdered By: Conner Griffith on 10-26-2022 Protein [Mass/Vol] 6.8 g/dL 6.1-7.9 [facility] Prothrombin Time INRon 10-26 INR Coag (PPP) [Relative time] 0.9 {INR} Normal [facility] Comment on above: Result Comment: INR Therapeutic [...] #### H EPATIC, CBC, BMP, LIPASE #### [facility] [address] [place] [address] [place] PT Coag (PPP) [Time] 10.6 s Normal 9.0-12.9 [facility] Comment on above: Performed By: #### H EPATIC, CBC, BMP, LIPASE #### [facility] [address] [place] [address] [place] RBC Auto (Bld) [#/Vol]Ordere d By: Conner Griffith on 10-26-2022 RBC (Bld) [#/Vol] 4.14 10*6/uL 3.60-5.00 [facility] Serum or plasma alanine cooley otransferase measurement without P-5'-P (enzymatic activiOrdered By: Conner Griffith on 10-26-2022 ALT No additional P-5'-P [Catalytic activity/Vol] 18 U/L 10-60 [facility] Serum or plasma albumin/glob ulin mass ratioOrdered By: Conner Griffith on 10-26-2022 Albumin/Globulin [Mass ratio] 1.1 {ratio} [facility] Serum or plasma alkaline augustin sphatase measurement (enzymatic activity/volume)Ordered By: Conner Griffith on 10-26-2022 ALP [Catalytic activity/Vol] 121 U/L 32-92 [facility] Serum or plasma anion gap de terminationOrdered By: Conner Griffith on 10-26-2022 Anion gap [Moles/Vol] 11.3 mmol/L 6.0-15.0 [facility] Serum or plasma aspartate am inotransferase measurement (enzymatic activity/volume)Ordered By: Conner Griffith on 10-26-2022 AST [Catalytic activity/Vol] 19 U/L 10-42 [facility] Serum or plasma calcium julee urement (mass/volume)Ordered By: Conner Griffith on 10-26-2022 Calcium [Mass/Vol] 8.9 mg/dL 8.2-10.2 [facility] Serum or plasma chloride julio surement (moles/volume)Ordered By: Conner Griffith on 10-26-2022 Chloride [Moles/Vol] 108 mmol/L 95-114 [facility] Serum or plasma glucose julee urement (mass/volume)Ordered By: Conner Griffith on 10-26-2022 Glucose [Mass/Vol] 95 mg/dL 70-100 [facility] Comment on above: ADA recommended refe rence rangeRandom Glucose Reference Range is dependent on time and content of last meal. Glucose of more than 200 mg/dL in a nonstressed, ambulatory subject supports the diagnosis of Diabetes Mellitus. Serum or plasma potassium me asurement (moles/volume)Ordered By: Conner Griffith on 10-26-2022 Potassium [Moles/Vol] 3.4 mmol/L 3.5-5.1 [facility] Serum or plasma sodium measu rement (moles/volume)Ordered By: Conner Griffith on 10-26-2022 Sodium [Moles/Vol] 141 mmol/L 136-146 [facility] Serum or plasma total biliru bin measurement (mass/volume)Ordered By: Conner Griffith on 10-26-2022 Bilirubin [Mass/Vol] 0.4 mg/dL 0.3-1.2 [facility] Serum or plasma total carbon dioxide measurement (moles/volume)Ordered By: Conner Griffith on 10-26-2022 CO2 [Moles/Vol] 25.1 mmol/L 22.0-30.0 [facility] Serum or plasma urea nitroge n measurement (mass/volume)Ordered By: Conner Griffith on 10-26-2022 Urea nitrogen [Mass/Vol] 18 mg/dL 9-23 [facility] Specific gravity Auto test s trip (U) [Rel density]Ordered By: Conner Griffith on 10-26-2022 Specific gravity (U) [Rel density] 1.019 1.001-1.030 [facility] Squamous epithelial cells de tection in urine sediment by light microscopyOrdered By: Conner Griffith on 10-26-2022 Epithelial cells.squamous LM Ql (Urine sed) 1-2 [HPF] 0-2 [facility] Urine bacteria detection by automated methodOrdered By: Conner Griffith on 10-26-2022 Bacteria Auto Ql (U) None seen None Seen [facility] Urine clarity by refractomet ry automatedOrdered By: Conner Griffith on 10-26-2022 Clarity Refractometry automated (U) Clear Clear [facility] Urine glucose measurement by automated test strip (mass/volume)Ordered By: Conner Griffith on 10-26-2022 Glucose Auto test strip (U) [Mass/Vol] Normal mg/dL Normal [facility] Urine hemoglobin detection b y automated test stripOrdered By: Conner Griffith on 10-26-2022 Hemoglobin Auto test strip Ql (U) Negative Negative [facility] Urine lactic acid measuremen tOrdered By: Conner Griffith on 10-26-2022 Lactate (U) [Moles/Vol] 1.0 mmol/L 0.5-2.2 [facility] Urine leukocyte esterase det ection by automated test stripOrdered By: Conner Griffith on 10-26-2022 Leukocyte esterase Auto test strip Ql (U) 1+ Negative [facility] Urobilinogen Auto test strip (U) [Mass/Vol]Ordered By: Conner Griffith on 10-26-2022 Urobilinogen (U) [Mass/Vol] Normal mg/dL Normal [facility] WBC Auto (Bld) [#/Vol]Ordere d By: Conner Griffith on 10-26-2022 WBC (Bld) [#/Vol] 6.3 10*3/uL 3.8-11.6 [facility] pH Auto test strip (U)Ordere d By: Conner Griffith on 10-26-2022 pH (U) 6.5 [pH] 5.0-9.0 [facility] Auth for Release of Medical Recordson 10-25-2022 Auth for Release of Medical Records [id number]:127 Normal [facility] CBC AUTO DIFFon 09-21-2022 BASO # 0.0 103/ul Normal 0.0-0.1 [facility] Comment on above: Performed By: #### C BC ####[facility] [address] [place], [place] [address]Dr. Tadeo Smyth Basophils/100 WBC (Bld) 0.4 % Normal 0.2-2.0 [facility] Comment on above: Performed By: #### C BC ####[facility] Ug[address]uf[address] [place], [place] [address]Dr. Tadeo Smyth EO # 0.1 103/ul Normal 0.0-0.7 [facility] Comment on above: Performed By: #### C BC ####[facility] [address] [place] [address]Dr. Tadeo Smyth Eosinophils/100 WBC (Bld) 1.8 % Normal 0.9-7.0 [facility] Comment on above: Performed By: #### C BC ####[facility] G[address] [place], [place] [address]Dr. Tadeo Smyth Erythrocyte distribution width (RBC) [Ratio] 13.8 % Normal 11.0-15.0 [facility] Comment on above: Performed By: #### C BC ####[facility] [address] [place] [address]Dr. Tadeo Smyth Hematocrit (Bld) [Volume fraction] 41.0 % Normal 36.0-48.0 [facility] Comment on above: Performed By: #### C BC ####[facility] [address] [place], [place] [address]Dr. Tadeo Smyth Hemoglobin (Bld) [Mass/Vol] 13.3 g/dL Normal 12.0-16.0 [facility] Comment on above: Performed By: #### C BC ####[facility] X[address] [place], [place] [address]Dr. Tadeo Smyth IG # 0.01 10e3/ul Normal 0.00-0.03 [facility] Comment on above: Performed By: #### C BC ####[facility] Vic[address]vokvg[address] [place], [place] [address]Dr. Tadeo Smyth IG % 0.1 % Normal 0.0-0.5 [facility] Comment on above: Performed By: #### C BC ####[facility] [address] [place], [place] [address]DrNeo Tadeo Smyth LYMPH # 1.7 103/ul Normal 1.2-3.8 [facility] Comment on above: Performed By: #### C BC ####[facility] Z[address]cv[address]ml[address] [place], [place] [address]DrNeo Margotnicole Smyth Lymphocytes/100 WBC (Bld) 24.8 % Normal 20.5-60.0 [facility] Comment on above: Performed By: #### C BC ####[facility] H[address]act[address] [place], [place] [address]Dr. Margotnicole Smyth MANUAL DIFF REQ NO Normal [facility] Comment on above: Performed By: #### C BC ####[facility] [address] [place], [place] [address]DrNeo Margotnicole Smyth MCH (RBC) [Entitic mass] 29.0 pg Normal 26.7-34.0 [facility] Comment on above: Performed By: #### C BC ####[facility] [address] [place] [address]DrNeo Smyth MCHC (RBC) [Mass/Vol] 32.4 g/dL Normal 29.9-35.2 [facility] Comment on above: Performed By: #### C BC ####[facility] [address] [place] [address]DrNeo Smyth MCV (RBC) [Entitic vol] 89.3 fL Normal 81.0-99.0 [facility] Comment on above: Performed By: #### C BC ####[facility] G[address]fsce[address] [place], [place] [address]DrNeo Smyth MONO # 0.5 103/ul Normal 0.3-0.8 [facility] Comment on above: Performed By: #### C BC ####[facility] U[address]nywyl[address] [place], [place] [address]DrNeo Smyth Monocytes/100 WBC (Bld) 6.9 % Normal 1.7-12.0 [facility] Comment on above: Performed By: #### C BC ####[facility] [address]we[address] [place], [place] [address]DrNeo Smyth NEUT # 4.5 103/ul Normal 1.4-6.5 [facility] Comment on above: Performed By: #### C BC ####[facility] [address]bk[address] [place], [place] [address]DrNeo Smyth Neutrophils/100 WBC (Bld) 66.0 % Normal 43.0-75.0 [facility] Comment on above: Performed By: #### C BC ####[facility] E[address]kt[address] [place], [place] [address]DrNeo Smyth Platelet mean volume (Bld) [Entitic vol] 8.8 fL Critically low 9.5-13.5 [facility] Comment on above: Performed By: #### C BC ####[facility] [address] [place], [place] [address]DrNeo Smyth PLT 384 103/ul Normal 150-450 [facility] Comment on above: Performed By: #### C BC ####[facility] [address] [place] [address]Dr. Tadeo Smyth RBC 4.59 106/ul Normal 4.20-5.40 [facility] Comment on above: Performed By: #### C BC ####[facility] [address] [place], [place] [address]Dr. Tadeo Smyth WBC 6.8 103/ul Normal 4.0-11.0 [facility] Comment on above: Performed By: #### C BC ####[facility] Cre[address]ix[address] [place], [place] [address]DrNeo Smyth PROF CHEM 8 (BAS METB)on Anion gap [Moles/Vol] 13.8 mmol/L Normal [facility] Comment on above: Performed By: #### B MP ####[facility] Ocdprguevh[address] [place], [place] [address]Dr. Tadeo Smyth Calcium [Mass/Vol] 9.6 mg/dL Normal 8.5-10.1 [facility] Comment on above: Performed By: #### B MP ####[facility] [address] [place], [place] [address]DrNeo Smyth Chloride [Moles/Vol] 106 mmol/L Normal 98-107 [facility] Comment on above: Performed By: #### B MP ####[facility] [address] [place], [place] [address]DrNeo Smyth CO2 [Moles/Vol] 25.9 mmol/L Normal 21.0-32.0 [facility] Comment on above: Performed By: #### B MP ####[facility] U[address]yszb[address] [place], [place] [address]Dr. Tadeo Smyth Creatinine [Mass/Vol] 0.92 mg/dL Normal 0.55-1.02 [facility] Comment on above: Performed By: #### B MP ####[facility] [address] [place], [place] [address]DrNeo Smyth EGFR-AF CROATIAN >60 Normal >=60 [facility] Comment on above: Performed By: #### B MP ####[facility] [address] [place] [id number]. Tadeo Smyth EGFR-NON AF CROATIAN >60 Normal >=60 [facility] Comment on above: Performed By: #### B MP ####[facility] [address] [place] [id number]. Tadeo Smyth Glucose [Mass/Vol] 98 mg/dL Normal 74-106 [facility] Comment on above: Performed By: #### B MP ####[facility] [address] [place] [id number]. Tadeo Smyth Potassium [Moles/Vol] 3.7 mmol/L Normal 3.5-5.1 [facility] Comment on above: Performed By: #### B MP ####[facility] [address] [place] [id number]. Tadeo Haja Sodium [Moles/Vol] 142 mmol/L Normal 136-145 [facility] Comment on above: Performed By: #### B MP ####[facility] [address] [place] [id number]. Tadeo Smyth Urea nitrogen [Mass/Vol] 19.0 mg/dL Critically high 7.0-18.0 [facility] Comment on above: Performed By: #### B MP ####[facility] [address] [place] [id number]. Tadeo Haja Urea nitrogen/Creatinine [Mass ratio] 20.7 mg/mg Normal [facility] Comment on above: Performed By: #### B MP ####[facility] [address] [place] [id number]. Tadeo Smyth XR KUB 1 VIEWon 09-21-2022 XR KUB 1 VIEW Normal [facility] Lab Reportson 09-20-2022 Lab Reports [id number]:127 Normal [facility] RAD - CT Reporton 09-20-2022 RAD - CT Report [id number]#[id number]:127 Normal [facility] RAD - MISCon 09-20-2022 RAD - MISC [id number]#[id number]:127 Normal [facility] AMYLASEon 09-18-2022 Amylase [Catalytic activity/Vol] 58 U/L Normal 25-115 [facility] Comment on above: Performed By: #### L IPA, CMP, VIJI ####[facility] [address] [place], [place] [address]Dr. Tadeo Smyth CBC AUTO DIFFon 09-18-2022 BASO # 0.0 103/ul Normal 0.0-0.1 [facility] Comment on above: Performed By: #### C BC ####[facility] Obvavdrxwn7[address] [place], [place] [address]Dr. Tadeo Smyth Basophils/100 WBC (Bld) 0.3 % Normal 0.2-2.0 [facility] Comment on above: Performed By: #### C BC ####[facility] Zlfptoycod99[address] [place], [place] [address]Dr. Tadeo Smyth EO # 0.1 103/ul Normal 0.0-0.7 [facility] Comment on above: Performed By: #### C BC ####[facility] Csowlampav39[address] [place], [place] [address]Dr. Tadeo Smyth Eosinophils/100 WBC (Bld) 1.8 % Normal 0.9-7.0 [facility] Comment on above: Performed By: #### C BC ####[facility] Essaylsrnh2211[address] [place], [place] [address]Dr. Tadeo Smyth Erythrocyte distribution width (RBC) [Ratio] 13.7 % Normal 11.0-15.0 [facility] Comment on above: Performed By: #### C BC ####[facility] Mqfmsmouqs[address] [place], [place] [address]Dr. Tadeo Smyth Hematocrit (Bld) [Volume fraction] 37.4 % Normal 36.0-48.0 [facility] Comment on above: Performed By: #### C BC ####[facility] Ggomkxyxhx37[address] [place] [phone]. Tadeo Smyth Hemoglobin (Bld) [Mass/Vol] 12.3 g/dL Normal 12.0-16.0 [facility] Comment on above: Performed By: #### C BC ####[facility] Ynilkvjeol9198 [place] [phone]. Tadeo Smyth IG # 0.02 10e3/ul Normal 0.00-0.03 [facility] Comment on above: Performed By: #### C BC ####[facility] Hhzuexcnwi45[address] [place] [address]Dr. Tadeo Smyth IG % 0.3 % Normal 0.0-0.5 [facility] Comment on above: Performed By: #### C BC ####[facility] Jhtgzwaqjj750[address] [place], [place] [address]Dr. Tadeo Smyth LYMPH # 2.2 103/ul Normal 1.2-3.8 [facility] Comment on above: Performed By: #### C BC ####[facility] Cyfdvzsgea1167 [place] [address]Dr. Tadeo Smyth Lymphocytes/100 WBC (Bld) 29.3 % Normal 20.5-60.0 [facility] Comment on above: Performed By: #### C BC ####[facility] Hniyexepfl6210 [place] [address]Dr. Tadeo Smyth MANUAL DIFF REQ NO Normal [facility] Comment on above: Performed By: #### C BC ####[facility] Hojrylkfdl4[address] [place], [place] [phone]. Tadeo Smyth MCH (RBC) [Entitic mass] 29.0 pg Normal 26.7-34.0 [facility] Comment on above: Performed By: #### C BC ####[facility] Zclifjraxj4764 [place] [address]Dr. Tadeo Smyth MCHC (RBC) [Mass/Vol] 32.9 g/dL Normal 29.9-35.2 [facility] Comment on above: Performed By: #### C BC ####[facility] Okohvzumpo7807 [place] [phone]. Tadeo Smyth MCV (RBC) [Entitic vol] 88.2 fL Normal 81.0-99.0 [facility] Comment on above: Performed By: #### C BC ####[facility] Jhojplppvr7370 [place] [phone]. Tadeo Smyth MONO # 0.5 103/ul Normal 0.3-0.8 [facility] Comment on above: Performed By: #### C BC ####[facility] Ppooghztic0748 [place] [phone]. Tadeo Smyth Monocytes/100 WBC (Bld) 6.4 % Normal 1.7-12.0 [facility] Comment on above: Performed By: #### C BC ####[facility] Jmuuqsfctn98[address] [place], [place] [address]Dr. Tadeo Smyth NEUT # 4.7 103/ul Normal 1.4-6.5 [facility] Comment on above: Performed By: #### C BC ####[facility] Rdmqzbsmot4684[address] [place], [place] [address]Dr. Tadeo Smyth Neutrophils/100 WBC (Bld) 61.9 % Normal 43.0-75.0 [facility] Comment on above: Performed By: #### C BC ####[facility] Ncprsmaplm6844[address] [place], [place] [address]Dr. Tadeo Smyth Platelet mean volume (Bld) [Entitic vol] 9.0 fL Critically low 9.5-13.5 [facility] Comment on above: Performed By: #### C BC ####[facility] Winunnecto110[address] [place], [place] [phone]. Tadeo Smyth PLT 395 103/ul Normal 150-450 [facility] Comment on above: Performed By: #### C BC ####[facility] Mhoqajnngp09[address] [place], [place] [phone]. Tadeo Smyth RBC 4.24 106/ul Normal 4.20-5.40 [facility] Comment on above: Performed By: #### C BC ####[facility] Xpwzpzxoem4161 [place] [address]Dr. Tadeo Smyth WBC 7.6 103/ul Normal 4.0-11.0 [facility] Comment on above: Performed By: #### C BC ####[facility] Utmqeifttv3801[address] [place], [place] [address]Dr. Margotnicole Haja CT ABD/PELV W CONon 09-18-[address] ABD/PELV W CON Normal [facility] ER URINE PROFILEon 3 Bilirubin Ql (U) SMALL Abnormal NEGATIVE [facility] Comment on above: Performed By: #### Matthew FRANCISCO UMICRO ####[facility] Wlnyasmkws318[address] [place], [place] [address]Dr. Tadeo Smyth Clarity (U) CLEAR Normal CLEAR [facility] Comment on above: Performed By: #### Matthew FRANCISCO UMICRO ####[facility] Xhnnewrzmb6452[address] [place], [place] [address]Dr. Tadeo Smyth Color (U) DK. YELLOW Normal YELLOW [facility] Comment on above: Performed By: #### Matthew FRANCISCO UMICRO ####[facility] Klrpyidncc0317[address] [place], [place] [address]Dr. Tadeo CAMARGOD A micrscopic examina tion will be performed if indicated. Normal [facility] Comment on above: Performed By: #### Matthew FRANCISCO UMICRO ####[facility] Tqoauqyngi7364[address] [place], [place] [address]Dr. Tadeo Smyth Glucose Ql (U) Negative Normal NEGATIVE [facility] Comment on above: Performed By: #### Matthew FRANCISCO UMICRO ####[facility] Abevfbjfzv9145[address] [place], [place] [address]Dr. Tadeo Smyth Hemoglobin Ql (U) SMALL Abnormal NEGATIVE [facility] Comment on above: Performed By: #### Matthew FRANCISCO UMICRO ####[facility] Kblmmmlqrt8133[address] [place], [place] [address]Dr. Tadeo Smyth Ketones Ql (U) Negative Normal NEGATIVE [facility] Comment on above: Performed By: #### KAROL MERCHANT ####[facility] Kqnzglxnvz5677 [place] [address]Dr. Tadeo Smyth LEUKOCYTES Negative Normal NEGATIVE [facility] Comment on above: Performed By: #### KAROL MERCHANT ####[facility] Oyqgfwdzrw7671 [place] [address]Dr. Tadeo Smyth Nitrite Ql (U) Negative Normal NEGATIVE [facility] Comment on above: Performed By: #### KAROL MERCHANT ####[facility] Utrohilvhg4813 [place] [address]Dr. Tadeo Smyth pH (U) 5.5 [pH] Normal 5-9 [facility] Comment on above: Performed By: #### KAROL MERCHANT ####[facility] Hcfcbvcsgz3952 [place] [address]Dr. Tadeo Smyth SPEC GRAVITY >=1.030 Abnormal 1.005-<=1.0 25 [facility] Comment on above: Performed By: #### KAROL MERCHANT ####[facility] Gtftskqbje2233[address] [place], [place] [address]Dr. Tadeo Smyth UA PROTEIN TRACE Normal NEGATIVE/ TRACE [facility] Comment on above: Performed By: #### KAROL MERCHANT ####[facility] Gqtzlpusbv0793 [place] [address]Dr. Tadeo Smyth UR MICRO IND INDICATED Normal [facility] Comment on above: Performed By: #### KAROL MERCHANT ####[facility] Zqpftoirpa5699[address] [place], [place] [address]Dr. Tadeo Smyth Urobilinogen Qn (U) 0.2 {Benito'U}/dL Normal 0.2 - 1. 0 [facility] Comment on above: Performed By: #### KAROL MERCHANT ####[facility] Wxwwtpzpvm8156[address] [place], [place] [address]Dr. Tadeo Smyth LACTATE/LACTIC ACIDon 2022 Lactate [Moles/Vol] 1.1 mmol/L Normal 0.4-1.9 [facility] Comment on above: Performed By: #### L ACT ####[facility] Pxmhqdvxpa4635 [place] [address]Dr. Tadeo Smyth LIPASEon 09-18-2022 Lipase [Catalytic activity/Vol] 75.0 U/L Normal 73.0-393.0 [facility] Comment on above: Performed By: #### L IPA, CMP, VIJI ####[facility] Roanpmqlnq8091 [place] [address]Dr. Tadeo Smyth PROF 14(COMP METB)on 023 Albumin [Mass/Vol] 3.4 g/dL Normal 3.4-5.0 [facility] Comment on above: Performed By: #### L IPA, CMP, VIJI ####[facility] Azqyhaxdtw319[address] [place], [place] [address]Dr. Tadeo Smyth Albumin/Globulin [Mass ratio] 0.9 {ratio} Normal [facility] Comment on above: Performed By: #### L IPA, CMP, VIJI ####[facility] Pdcfcchgwg981[address] [place], [place] [address]Dr. Tadeo Smyth ALP [Catalytic activity/Vol] 164 U/L Critically high 46-116 [facility] Comment on above: Performed By: #### L IPA, CMP, VIJI ####[facility] Ruwditvktw6764[address] [place], [place] [address]Dr. Tadeo Smyth ALT [Catalytic activity/Vol] 29 U/L Normal 14-59 [facility] Comment on above: Performed By: #### L IPA, CMP, VIJI ####[facility] Osysplxkti2692 [place] [address]Dr. Tadeo Smyth Anion gap [Moles/Vol] 12.3 mmol/L Normal [facility] Comment on above: Performed By: #### L IPA, CMP, VIJI ####[facility] Trqskttgkr9015[address] [place], [place] [address]Dr. Tadeo Smyth AST [Catalytic activity/Vol] 30 U/L Normal 15-37 [facility] Comment on above: Performed By: #### L IPA, CMP, VIJI ####[facility] Rajdqgujzc3958[address] [place], [place] [address]Dr. Tadeo Smyth Bilirubin [Mass/Vol] 0.3 mg/dL Normal 0.2-1.0 [facility] Comment on above: Performed By: #### L IPA CMP, VIJI ####[facility] Iuglioopta7571 [place] [address]Dr. Tadeo Smyth Calcium [Mass/Vol] 8.9 mg/dL Normal 8.5-10.1 [facility] Comment on above: Performed By: #### L IPA, CMP, VIJI ####[facility] Exjzohxpzw2758[address] [place], [place] [address]Dr. Tadeo Smyth Chloride [Moles/Vol] 103 mmol/L Normal 98-107 [facility] Comment on above: Performed By: #### L IPA CMP, VIJI ####[facility] Afquerwfah8478[address] [place], [place] [address]Dr. Tadeo Smyth CO2 [Moles/Vol] 27.8 mmol/L Normal 21.0-32.0 [facility] Comment on above: Performed By: #### L IPA, CMP, VIJI ####[facility] Zyothaxbay5089[address] [place], [place] [address]Dr. Tadeo Smyth Creatinine [Mass/Vol] 0.89 mg/dL Normal 0.55-1.02 [facility] Comment on above: Performed By: #### L IPA, CMP, VIJI ####[facility] Vcwcrunmmg7387[address] [place], [place] [address]Dr. Tadeo Smyth EGFR-AF CROATIAN >60 Normal >=60 [facility] Comment on above: Performed By: #### L IPA, CMP, VIJI ####[facility] Ezvwwokqtl29101[address] [place], [place] [address]Dr. Tadeo Smyth EGFR-NON AF CROATIAN >60 Normal >=60 [facility] Comment on above: Performed By: #### L IPA, CMP, VIJI ####[facility] Ljwxmskcgw2056[address] [place], [place] [address]Dr. Tadeo Smyth Globulin (S) [Mass/Vol] 3.9 g/dL Normal [facility] Comment on above: Performed By: #### L IPA, CMP, VIJI ####[facility] Eoznunsybe4053 [place] [address]Dr. Tadeo Smyth Glucose [Mass/Vol] 96 mg/dL Normal 74-106 [facility] Comment on above: Performed By: #### L IPA, CMP, VIJI ####[facility] Fqfntfbwqp7466 [place] [address]Dr. Tadeo Smyth Potassium [Moles/Vol] 4.1 mmol/L Normal 3.5-5.1 [facility] Comment on above: Performed By: #### L IPA, CMP, VIJI ####[facility] Zdelqqubil0710 [place] [address]Dr. Tadeo Smyth Protein [Mass/Vol] 7.3 g/dL Normal 6.4-8.2 [facility] Comment on above: Performed By: #### L IPA, CMP, VIJI ####[facility] Nxjisbulrc2007 [place] [address]Dr. Tadeo Smyth Sodium [Moles/Vol] 139 mmol/L Normal 136-145 [facility] Comment on above: Performed By: #### L IPA, CMP, VIJI ####[facility] Awsnbqgltz6085 [place] [address]Dr. Tadeo Smyth Urea nitrogen [Mass/Vol] 19.0 mg/dL Critically high 7.0-18.0 [facility] Comment on above: Performed By: #### L IPA, CMP, VIJI ####[facility] Rxlfxnjmzw0164 [place] [address]Dr. Tdaeo Smyth Urea nitrogen/Creatinine [Mass ratio] 21.3 mg/mg Normal [facility] Comment on above: Performed By: #### L IPA, CMP, VIJI ####[facility] Kbdxyfugge5917 [place] [address]Dr. Tadeo Smyth URINE MICROSCOPIC ONLYon BACTERIA TRACE Abnormal NONE SEEN [facility] Comment on above: Performed By: #### E KAROL FRANCISCO ####[facility] Rpswlibolp3769 [place] [address]Dr. Tadeo Smyth Bacteria identified Cx Nom (U) NOT INDICATED Normal [facility] Comment on above: Performed By: #### SANDRO MERCHANTRO ####[facility] Uybhtzrwhr[address] [place], [place] [address]Dr. Margotnicole Haja CAST NONE SEEN Normal NONE SEEN [facility] Comment on above: Performed By: #### SANDRO MERCHANTRO ####[facility] Oxylpxyphz4680 [place] [address]Dr. Tadeo Smyth Crystals LM Nom (Urine sed) SEEN Abnormal NONE SEEN [facility] Comment on above: Performed By: #### SANDRO MERCHANTRO ####[facility] Odelmctjql542[address] [place], [place] [address]Dr. Tadeo Smyth Epithelial cells LM Ql (Urine sed) RARE Normal NONE SEEN /RARE [facility] Comment on above: Performed By: #### Matthew FRANCISCO CHINEDURO ####[facility] Gmnobxyqrp4179[address] [place], [place] [address]Dr. Tadeo Smyth MUCOUS TRACE Abnormal NONE SEEN [facility] Comment on above: Performed By: #### Matthew FRANCISCO CHINEDURO ####[facility] Lrzcdgsdut0289[address] [place], [place] [address]Dr. Tadeo Smyth RBC 0-2 Normal 0-2 [facility] Comment on above: Performed By: #### Matthew FRANCISCO CHINEDURO ####[facility] Ntsppjzmlo7733[address] [place], [place] [address]Dr. Tadeo Smyth WBC 0-2 Abnormal NONE SEEN [facility] Comment on above: Performed By: #### SANDRO MERCHANTRO ####[facility] Hhrqnqnouc1327[address] [place], [place] [address]Dr. Tadeo Smyth CBC AUTO DIFFon 09-14-2022 BASO # 0.0 103/ul Normal 0.0-0.1 [facility] Comment on above: Performed By: #### C BC ####[facility] Xkcyngdxjn1249[address] [place], [place] [address]Dr. Tadeo Smyth Basophils/100 WBC (Bld) 0.3 % Normal 0.2-2.0 [facility] Comment on above: Performed By: #### C BC ####[facility] Jyqobakpwb6474 [place] [phone]. Tadeo Smyth EO # 0.2 103/ul Normal 0.0-0.7 [facility] Comment on above: Performed By: #### C BC ####[facility] Zocxeivneg7315 [place] [address]Dr. Tadeo Smyth Eosinophils/100 WBC (Bld) 1.1 % Normal 0.9-7.0 [facility] Comment on above: Performed By: #### C BC ####[facility] Xynfrtljqy0896[address] [place], [place] [address]Dr. Tadeo Smyth Erythrocyte distribution width (RBC) [Ratio] 13.7 % Normal 11.0-15.0 [facility] Comment on above: Performed By: #### C BC ####[facility] Ejaqojptnk9035[address] [place], [place] [address]Dr. Tadeo Smyth Hematocrit (Bld) [Volume fraction] 41.3 % Normal 36.0-48.0 [facility] Comment on above: Performed By: #### C BC ####[facility] Hmsfboibbq4259[address] [place], [place] [address]Dr. Tadeo Smyth Hemoglobin (Bld) [Mass/Vol] 13.6 g/dL Normal 12.0-16.0 [facility] Comment on above: Performed By: #### C BC ####[facility] Entleqgxys2232[address] [place], [place] [address]Dr. Tadeo Smyth IG # 0.05 10e3/ul Critically high 0.00-0.03 [facility] Comment on above: Performed By: #### C BC ####[facility] Vruclfnbwz4568[address] [place], [place] [address]Dr. Tadeo Smyth IG % 0.4 % Normal 0.0-0.5 [facility] Comment on above: Performed By: #### C BC ####[facility] Rjjfuwhish1483[address] [place], [place] [address]Dr. Tadeo Smyth LYMPH # 2.2 103/ul Normal 1.2-3.8 [facility] Comment on above: Performed By: #### C BC ####[facility] Gplcgwowan8042 [place] [phone]. Tadeo Smyth Lymphocytes/100 WBC (Bld) 16.3 % Critically low 20.5-60.0 [facility] Comment on above: Performed By: #### C BC ####[facility] Qrhkmowlvx2877 [place] [phone]. Tadeo Smyth MANUAL DIFF REQ NO Normal [facility] Comment on above: Performed By: #### C BC ####[facility] Svzzlwyhwk4815 [place] [phone]. Tadeo Haja MCH (RBC) [Entitic mass] 28.9 pg Normal 26.7-34.0 [facility] Comment on above: Performed By: #### C BC ####[facility] Lwnqqkaxex0281 [place] [address]Dr. Tadeo Smyth MCHC (RBC) [Mass/Vol] 32.9 g/dL Normal 29.9-35.2 [facility] Comment on above: Performed By: #### C BC ####[facility] Bknmbgfrbt9339 [place] [phone]. Tadeo Smyth MCV (RBC) [Entitic vol] 87.9 fL Normal 81.0-99.0 [facility] Comment on above: Performed By: #### C BC ####[facility] Drogbaevor5416[address] [place], [place] [address]Dr. Tadeo Haja MONO # 0.7 103/ul Normal 0.3-0.8 [facility] Comment on above: Performed By: #### C BC ####[facility] Prodkxtcgm8021 [place] [phone]. Tadeo Smyth Monocytes/100 WBC (Bld) 5.1 % Normal 1.7-12.0 [facility] Comment on above: Performed By: #### C BC ####[facility] Ezkoilwsyp6902 [place] [address]Dr. Tadeo Smyth NEUT # 10.3 103/ul Critically high 1.4-6.5 [facility] Comment on above: Performed By: #### C BC ####[facility] Nfiwvqvinq7263 [place] [phone]. Tadeo Smyth Neutrophils/100 WBC (Bld) 76.8 % Critically high 43.0-75.0 [facility] Comment on above: Performed By: #### C BC ####[facility] Ekuoqkabac2949 [place] [phone]. Tadeo Smyth Platelet mean volume (Bld) [Entitic vol] 8.8 fL Critically low 9.5-13.5 [facility] Comment on above: Performed By: #### C BC ####[facility] Asbvqjsjow6056 [place] [phone]. Tadeo Smyth PLT 438 103/ul Normal 150-450 [facility] Comment on above: Performed By: #### C BC ####[facility] Edfkrsydqd9499 [place] [address]Dr. Tadeo Smyth RBC 4.70 106/ul Normal 4.20-5.40 [facility] Comment on above: Performed By: #### C BC ####[facility] Iwtqciupza17[address] [place], [place] [phone]. Tadeo Smyth WBC 13.4 103/ul Critically high 4.0-11.0 [facility] Comment on above: Performed By: #### C BC ####[facility] Awdxquypsy0598[address] [place], [place] [address]Dr. Tadeo Smyth ER URINE PROFILEon 3 Bilirubin Ql (U) Negative Normal NEGATIVE [facility] Comment on above: Performed By: #### SANDRO MERCHANTRO ####[facility] Tvdrwjsffd1778 [place] [phone]. Tadeo Haja Clarity (U) CLEAR Normal CLEAR [facility] Comment on above: Performed By: #### SANDRO MERCHANTRO ####[facility] Tcszzgvhcs2537 [place] [address]Dr. Tadeo Smyth Color (U) LT. YELLOW Normal YELLOW [facility] Comment on above: Performed By: #### SANDRO MERCHANTRO ####[facility] Wzngsyufsa508[address] [place], [place] [address]Dr. Tadeo ENG A micrscopic examina tion will be performed if indicated. Normal [facility] Comment on above: Performed By: #### KAROL MERCHANT ####[facility] Cpbsehyqal7259 [place] [address]Dr. Tadeo Smyth Glucose Ql (U) Negative Normal NEGATIVE [facility] Comment on above: Performed By: #### KAROL MERCHANT ####[facility] Knobsgoxxy9[address] [place], [place] [address]Dr. Tadeo Smyth Hemoglobin Ql (U) TRACE-INTACT Abnormal NEGATIVE [facility] Comment on above: Performed By: #### KAROL MERCHANT ####[facility] Mbmlujwpua1902[address] [place], [place] [address]Dr. Tadeo Smyth Ketones Ql (U) Negative Normal NEGATIVE [facility] Comment on above: Performed By: #### KAROL MERCHANT ####[facility] Gevzsupzcg2749[address] [place], [place] [address]Dr. Tadeo Smyth LEUKOCYTES Negative Normal NEGATIVE [facility] Comment on above: Performed By: #### KAROL MERCHANT ####[facility] Egrcldfsez8547[address] [place], [place] [address]Dr. Tadeo Smyth Nitrite Ql (U) Negative Normal NEGATIVE [facility] Comment on above: Performed By: #### KAROL MERCHANT ####[facility] Nprnbylrii4016[address] [place], [place] [address]Dr. Tadeo Smyth pH (U) 6.5 [pH] Normal 5-9 [facility] Comment on above: Performed By: #### KAROL MERCHANT ####[facility] Ojnpfjuayz39[address] [place], [place] [address]Dr. Tadeo Smyth SPEC GRAVITY 1.020 Normal 1.005-<=1.0 25 [facility] Comment on above: Performed By: #### KAROL MERCHANT ####[facility] Pitmwrkwst4[address] [place], [place] [address]Dr. Tadeo Smyth UA PROTEIN Negative Normal NEGATIVE/ TRACE [facility] Comment on above: Performed By: #### SANDRO MERCHANTRO ####[facility] Chujogzyyk6886 [place] [address]Dr. Tadeo Smyth UR MICRO IND INDICATED Normal [facility] Comment on above: Performed By: #### SANDRO MERCHANTRO ####[facility] Vglqioruge0269 [place] [address]Dr. Tadeo Smyth Urobilinogen Qn (U) 0.2 {Benito'U}/dL Normal 0.2 - 1. 0 [facility] Comment on above: Performed By: #### SANDRO MERCHANTRO ####[facility] Rnwgivedva4179 [place] [address]Dr. Tadeo Smyth LIPASEon 09-14-2022 Lipase [Catalytic activity/Vol] 117.0 U/L Normal 73.0-393.0 [facility] Comment on above: Performed By: #### H STROPN, CMP, LIPA ####[facility] Tfnxxcybue3396 [place] [address]Dr. Tadeo Smyth PROF 14(COMP METB)on 023 Albumin [Mass/Vol] 3.5 g/dL Normal 3.4-5.0 [facility] Comment on above: Performed By: #### H STROPN, CMP, LIPA ####[facility] Jdwytidgag1052 [place] [address]Dr. Tadeo Smyth Albumin/Globulin [Mass ratio] 0.8 {ratio} Normal The [facility] Comment on above: Performed By: #### H STROPN, CMP, LIPA ####[facility] Ktcwvsnccz[address] [place] [address]Dr. Tadeo Smyth ALP [Catalytic activity/Vol] 180 U/L Critically high 46-116 The [facility] Comment on above: Performed By: #### H STROPN, CMP, LIPA ####[facility] Ggzthcsqcr[address] [place] [address]Dr. Tadeo Smyth ALT [Catalytic activity/Vol] 25 U/L Normal 14-59 The [facility] Comment on above: Performed By: #### H STROPN, CMP, LIPA ####[facility] Beipsiwofv[address] [place] [address]Dr. Tadeo Smyth Anion gap [Moles/Vol] 14.4 mmol/L Normal Th e [facility] Comment on above: Performed By: #### H STROPN, CMP, LIPA ####[facility] Wvyabkhibx39[address] [place] [address]Dr. Tadeo Smyth AST [Catalytic activity/Vol] 14 U/L Critically low 15-37 The [facility] Comment on above: Performed By: #### H STROPN, CMP, LIPA ####[facility] Xarabllfue[address] [place] [address]Dr. Tadeo Smyth Bilirubin [Mass/Vol] 0.2 mg/dL Normal 0.2-1.0 [facility] Comment on above: Performed By: #### H STROPN, CMP, LIPA ####[facility] Dqcaymcgcj[address] [place], [place] [address]Dr. Tadeo Smyth Calcium [Mass/Vol] 9.4 mg/dL Normal 8.5-10.1 [facility] Comment on above: Performed By: #### H STROPN, CMP, LIPA ####[facility] Mcvxbmeivk[address] [place], [place] [address]Dr. Tadoe Smyth Chloride [Moles/Vol] 107 mmol/L Normal 98-107 The [facility] Comment on above: Performed By: #### H STROPN, CMP, LIPA ####[facility] Okgawiapon[address] [place], [place] [address]Dr. Tadeo Smtyh CO2 [Moles/Vol] 23.9 mmol/L Normal 21.0-32.0 The [facility] Comment on above: Performed By: #### H STROPN, CMP, LIPA ####[facility] Azyrpztpkm[address] [place], [place] [address]Dr. Tadeo Smyth Creatinine [Mass/Vol] 0.91 mg/dL Normal 0.55-1.02 [facility] Comment on above: Performed By: #### H STROPN, CMP, LIPA ####[facility] Otfgvolkxz[address] [place], [place] [id number]. Tadeo Smyth EGFR-AF CROATIAN >60 Normal >=60 The [facility] Comment on above: Performed By: #### H STROPN, CMP, LIPA ####[facility] Hugeamdvky[address] [place] [address]Dr. Tadeo Smyth EGFR-NON AF CROATIAN >60 Normal >=60 The [facility] Comment on above: Performed By: #### H STROPN, CMP, LIPA ####[facility] Qolypkfhpi0691 [place] [address]Dr. Tadeo Smyth Globulin (S) [Mass/Vol] 4.2 g/dL Normal The [facility] Comment on above: Performed By: #### H STROPN, CMP, LIPA ####[facility] Swhsomupiq[address] [place] [address]Dr. Tadeo Smyth Glucose [Mass/Vol] 101 mg/dL Normal 74-106 The [facility] Comment on above: Performed By: #### H STROPN, CMP, LIPA ####[facility] Vqsrtzwamk1473 [place] [address]Dr. Tadeo Smyth Potassium [Moles/Vol] 3.3 mmol/L Critically low 3.5-5.1 The [facility] Comment on above: Performed By: #### H STROPN, CMP, LIPA ####[facility] Wwavqawwdb6599 [place] [address]Dr. Tadeo Smyth Protein [Mass/Vol] 7.7 g/dL Normal 6.4-8.2 The [facility] Comment on above: Performed By: #### H STROPN, CMP, LIPA ####[facility] Zfahzbfssu[address] [place] [address]Dr. Tadeo Smyth Sodium [Moles/Vol] 142 mmol/L Normal 136-145 The [facility] Comment on above: Performed By: #### H STROPN, CMP, LIPA ####[facility] Upbptpacqv6818 [place] [address]Dr. Tadeo Smyth Urea nitrogen [Mass/Vol] 17.0 mg/dL Normal 7.0-18.0 The [facility] Comment on above: Performed By: #### H STROYAZMIN, CMP, LIPA ####[facility] Eszfupesmm0718 [place] [address]Dr. Tadeo Smyth Urea nitrogen/Creatinine [Mass ratio] 18.7 mg/mg Normal The [facility] Comment on above: Performed By: #### H STROYAZMIN, CMP, LIPA ####[facility] Wpacgklkui67[address] [place] [address]Dr. Tadeo Smyth TROPONIN, HIGH SENSITIVITYon 09-14-2022 HSTROP 46.6 pg/mL Normal 4.0-51.3 The [facility] Comment on above: Result Comment: CUT- OFF POINTS HAVE BEEN ESTABLISHED BASED ON THE FOURTH UNIVERSAL DEFINITIONS OF MYOCARDIALINFARCTION. THE UPPER REFERENCE LIMIT (URL) OF TROPONIN, DEFINED THE 99TH PERCENTILE OFcTnI DISTRIBUTION IN A REFERENCE POPULATION, HAS BEEN CONFIRMED THE DECISION THRESHOLDFOR RI DIAGNOSIS. Performed By: #### H HENRY CMP, LIPA ####[facility] Rxcdrznnis0720 [place] [address]Dr. Tadeo Smyth URINE MICROSCOPIC ONLYon BACTERIA NONE SEEN Normal NONE SEEN The [facility] Comment on above: Performed By: #### Matthew FRANCISCO UMCHINEDURO ####[facility] Yianuqooww[address] [place], [place] [address]Dr. Tadeo Smyth Bacteria identified Cx Nom (U) NOT INDICATED Normal The [facility] Comment on above: Performed By: #### Matthew FRANCISCO UMICRO ####[facility] Lnmlkkzftv8753 [place] [address]Dr. Tadeo Smyth CAST NONE SEEN Normal NONE SEEN The [facility] Comment on above: Performed By: #### Matthew FRANCISCO UMICRO ####[facility] Nlapqutldh1420 [place] [address]Dr. Tadeo Smyth Crystals LM Nom (Urine sed) NONE SEEN Normal NONE SEEN The [facility] Comment on above: Performed By: #### Matthew FRANCISCO UMICRO ####[facility] Coijiqgixo9[address] [place] [address]Dr. Tadeo Smyth Epithelial cells LM Ql (Urine sed) FEW Abnormal NONE SEEN /RARE The [facility] Comment on above: Performed By: #### E NOLAN UMICRO ####[facility] Degxiwljxi48[address] [place] [phone]. Tadeo Smyth MUCOUS MODERATE Abnormal NONE SEEN The [facility] Comment on above: Performed By: #### E NOLAN, UMICRO ####[facility] Wmnmlfguhg0596 [place], [place] [address]Cc. Tadeo Smyth RBC 0-2 Normal 0-2 [facility] Comment on above: Performed By: #### E NOLAN, UMICRO ####[facility] Gewtcmfemi3798 [place], [place] [address]Em. Margotnicole Smyth WBC NONE SEEN Normal NONE SEEN The [facility] Comment on above: Performed By: #### Matthew FRANCISCO, UMICRO ####[facility] Tifanmodbh6967 [place] [phone]. Tadeo Smyth XR ABD FLAT UP_PA Kasey 09-14 XR ABD FLAT UP_PA CH Normal [facility] VC COMP CONSULTATIONon 09-06 VC COMP CONSULTATION Normal [facility] VC VENOUS REFLUX MACARIO LMTon 0 09-06-2022 VC VENOUS REFLUX MACRAIO LMT Normal [facility] XR KUB 1 VIEWon 08-18-2022 XR KUB 1 VIEW Normal [facility] US RUBENS DOP LEG RTon 08-11-20 US RUBENS DOP LEG RT Normal [facility] Provider Letteron 08-10-2022 Provider Letter (Inserted Image. Kristin ble to display) August 10, 2022 CONSTANTINO CARDOSO [address] [id number] CONSTANTINO CARDOSO 1970 Dear Constantino, We have been trying to reach you with no success. It is important that you return our call regarding your referral. Thank you for your prompt attention to this matter. Sincerely, [facility] Normal [facility] AMYLASEon 08-08-2022 Amylase [Catalytic activity/Vol] 64 U/L Normal 25-115 [facility] Comment on above: Performed By: #### C MP, VIJI, LIPA, CMADM ####[facility] Srspezxohu3098 [place] [phone]. Tadeo Smyth CARDIAC NORA ADMITon 022 CK [Catalytic activity/Vol] 127 U/L Normal 26-192 The [facility] Comment on above: Performed By: #### C MP, VIJI, LIPA, CMADM ####[facility] Hweevqifgd8266 [place] [address]Dr. Tadeo Smyth CK.MB [Mass/Vol] 1.71 ng/mL Normal <=3.60 The [facility] Comment on above: Performed By: #### C MP, VIJI, LIPA, CMADM ####[facility] Pmliavbotx1851 [place] [address]Dr. Tadeo Smyth HSTROP 36.7 pg/mL Normal 4.0-51.3 The [facility] Comment on above: Result Comment: CUT- OFF POINTS HAVE BEEN ESTABLISHED BASED ON THE FOURTH UNIVERSAL DEFINITIONS OF MYOCARDIALINFARCTION. THE UPPER REFERENCE LIMIT (URL) OF TROPONIN, DEFINED THE 99TH PERCENTILE OFcTnI DISTRIBUTION IN A REFERENCE POPULATION, HAS BEEN CONFIRMED THE DECISION THRESHOLDFOR RI DIAGNOSIS. Performed By: #### C MP, VIJI, LIPA, CMADM ####[facility] Oehqiplwau[address] [place] [address]Dr. Tadeo Haja AAKASH 23 ng/mL Normal 9-82 The [facility] Comment on above: Performed By: #### C MP, VIJI, LIPA, CMADM ####[facility] Yrvaanthsx3286 [place] [address]Dr. Tadeo Haja CBC AUTO DIFFon 08-08-2022 BASO # 0.0 103/ul Normal 0.0-0.1 The [facility] Comment on above: Performed By: #### C BC ####[facility] Yszxfavwts3815 [place] [address]Dr. Margotnicole Smyth Basophils/100 WBC (Bld) 0.4 % Normal 0.2-2.0 The [facility] Comment on above: Performed By: #### C BC ####[facility] Pegkzdsrsc3245 [place] [address]Dr. Tadeo Smyth EO # 0.1 103/ul Normal 0.0-0.7 The [facility] Comment on above: Performed By: #### C BC ####[facility] Yslsiqpmnj3823 [place] [address]Dr. Tadeo Smyth Eosinophils/100 WBC (Bld) 1.5 % Normal 0.9-7.0 The [facility] Comment on above: Performed By: #### C BC ####[facility] Jldncocnof[address] [place], [place] [address]Dr. Tadeo Smyth Erythrocyte distribution width (RBC) [Ratio] 13.5 % Normal 11.0-15.0 The [facility] Comment on above: Performed By: #### C BC ####[facility] Qychqhqxhi[address] [place], [place] [address]Dr. Tadeo Smyth Hematocrit (Bld) [Volume fraction] 37.0 % Normal 36.0-48.0 The [facility] Comment on above: Performed By: #### C BC ####[facility] Ebdjsqyogz[address] [place], [place] [address]Dr. Tadeo Smyth Hemoglobin (Bld) [Mass/Vol] 12.0 g/dL Normal 12.0-16.0 The [facility] Comment on above: Performed By: #### C BC ####[facility] Lbzyczjprr[address] [place], [place] [address]Dr. Tadeo Smyth IG # 0.02 10e3/ul Normal 0.00-0.03 The [facility] Comment on above: Performed By: #### C BC ####[facility] Dssywpdayt5[address] [place], [place] [address]Dr. Tadeo Smyth IG % 0.3 % Normal 0.0-0.5 The [facility] Comment on above: Performed By: #### C BC ####[facility] Cbpcrlkhnx8[address] [place], [place] [address]Dr. Tadeo Smyth LYMPH # 2.0 103/ul Normal 1.2-3.8 The [facility] Comment on above: Performed By: #### C BC ####[facility] Erilqnmhld7818[address] [place], [place] [address]Dr. Tadeo Smyth Lymphocytes/100 WBC (Bld) 27.9 % Normal 20.5-60.0 The [facility] Comment on above: Performed By: #### C BC ####[facility] Eglrjnvldf3456 [place] [address]Dr. Tadeo Smyth MANUAL DIFF REQ NO Normal The [facility] Comment on above: Performed By: #### C BC ####[facility] Dfcvvfucno0881 [place] [phone]. Tadeo Smyth MCH (RBC) [Entitic mass] 28.9 pg Normal 26.7-34.0 [facility] Comment on above: Performed By: #### C BC ####[facility] Ibqxlqrvsh8141 [place] [address]Dr. Tadeo Smyth MCHC (RBC) [Mass/Vol] 32.4 g/dL Normal 29.9-35.2 The [facility] Comment on above: Performed By: #### C BC ####[facility] Glowgjfbhd[address] [place], [place] [address]Dr. Tadeo Smyth MCV (RBC) [Entitic vol] 89.2 fL Normal 81.0-99.0 [facility] Comment on above: Performed By: #### C BC ####[facility] Cowkdmlekc8[address] [place], [place] [address]Dr. Tadeo Smyth MONO # 0.5 103/ul Normal 0.3-0.8 The [facility] Comment on above: Performed By: #### C BC ####[facility] Pmlohxndll[address] [place], [place] [address]Dr. Tadeo Smyth Monocytes/100 WBC (Bld) 6.7 % Normal 1.7-12.0 The [facility] Comment on above: Performed By: #### C BC ####[facility] Orcgimnwqk3627[address] [place], [place] [address]Dr. Tadeo Smyth NEUT # 4.5 103/ul Normal 1.4-6.5 The [facility] Comment on above: Performed By: #### C BC ####[facility] Jaizdijqjd[address] [place], [place] [address]Dr. Tadeo Smyth Neutrophils/100 WBC (Bld) 63.2 % Normal 43.0-75.0 The [facility] Comment on above: Performed By: #### C BC ####[facility] Bxgwjfmxcx[address] [place] [address]Dr. Tadeo Smyth Platelet mean volume (Bld) [Entitic vol] 9.0 fL Critically low 9.5-13.5 [facility] Comment on above: Performed By: #### C BC ####[facility] Efomtfdcoj1173 [place] [address]Dr. Tadeo Smyth PLT 382 103/ul Normal 150-450 The [facility] Comment on above: Performed By: #### C BC ####[facility] Yxqirxtxey3226 [place] [address]Dr. Tadeo Smyth RBC 4.15 106/ul Critically low 4.20-5.40 [facility] Comment on above: Performed By: #### C BC ####[facility] Ealqdxjaza37[address] [place], [place] [address]Dr. Tadeo Smyth WBC 7.1 103/ul Normal 4.0-11.0 [facility] Comment on above: Performed By: #### C BC ####[facility] Osqvhoobzn8[address] [place], [place] [address]Dr. Tadeo Smyth CT ABD/PELV W CONon 08-08-[address] ABD/PELV W CON Normal The [facility] ER URINE PROFILEon 2 Bilirubin Ql (U) Negative Normal NEGATIVE The [facility] Comment on above: Performed By: #### KAROL MERCHANT ####[facility] Fximescagg05[address] [place], [place] [address]DrNeo Smyth Clarity (U) CLEAR Normal CLEAR The [facility] Comment on above: Performed By: #### SANDRO MERCHANTRO ####[facility] Xpucrhooan3805 [place] [address]DrNeo Smyth Color (U) YELLOW Normal YELLOW The [facility] Comment on above: Performed By: #### KAROL MERCHANT ####[facility] Bbhpatrduw8[address] [place], [place] [address]DrNeo CAMARGOD A micrscopic examina tion will be performed if indicated. Normal The [facility] Comment on above: Performed By: #### Matthew FRANCISCO UMICRO ####[facility] Kwghbtpxwp1238[address] [place], [place] [address]Dr. Tadeo Smyth Glucose Ql (U) Negative Normal NEGATIVE The [facility] Comment on above: Performed By: #### Matthew FRANCISCO UMICRO ####[facility] Mhztvqcrpo7[address] [place], [place] [address]Dr. Margotnicole Smyth Hemoglobin Ql (U) TRACE-LYSED Abnormal NEGATIVE [facility] Comment on above: Performed By: #### Matthew FRANCISCO UMICRO ####[facility] Ocztzjruxr[address] [place], [place] [address]Dr. Tadeo Smyth Ketones Ql (U) TRACE Abnormal NEGATIVE The [facility] Comment on above: Performed By: #### Matthew FRANCISCO UMICRO ####[facility] Yzjmpfjojt[address] [place], [place] [address]Dr. Tadeo Smyth LEUKOCYTES Negative Normal NEGATIVE [facility] Comment on above: Performed By: #### Matthew FRANCISCO UMICRO ####[facility] Cvkhfcnfqn2586[address] [place], [place] [address]Dr. Margotnicole Smyth Nitrite Ql (U) Negative Normal NEGATIVE The [facility] Comment on above: Performed By: #### Matthew FRANCISCO UMICRO ####[facility] Mcuvtoxjwt[address] [place], [place] [address]Dr. Tadeo Smyth pH (U) 6.0 [pH] Normal 5-9 The [facility] Comment on above: Performed By: #### Matthew FRANCISCO UMICRO ####[facility] Kwkntxrnax75[address] [place], [place] [address]Dr. Tadeo Smyth SPEC GRAVITY >=1.030 Abnormal 1.005-<=1.0 25 The [facility] Comment on above: Performed By: #### Matthew FRANCISCO UMICRO ####[facility] Gwzqzmjckr83[address] [place], [place] [address]Dr. Tadeo Smyth UA PROTEIN TRACE Normal NEGATIVE/ TRACE The [facility] Comment on above: Performed By: #### Matthew FRANCISCO UMICRO ####[facility] Wuqnsbltop1415 [place] [address]Dr. Tadeo Smyth UR MICRO IND INDICATED Normal The [facility] Comment on above: Performed By: #### SANDRO MERCHANTRO ####[facility] Nkjzmmkbij4022 [place] [address]Dr. Margotnicole Smyth Urobilinogen Qn (U) 0.2 {Benito'U}/dL Normal 0.2 - 1. 0 The [facility] Comment on above: Performed By: #### Matthew FRANCISCO [facility] ####[facility] Fhydamckat9485 [place] [address]Dr. Tadeo Smyth LACTATE/LACTIC ACIDon 2021 Lactate [Moles/Vol] 1.3 mmol/L Normal 0.4-1.9 The [facility] Comment on above: Performed By: #### L ACT ####[facility] Tuyaqndydo7[address] [place], [place] [address]Dr. Tadeo Smyth LIPASEon 08-08-2022 Lipase [Catalytic activity/Vol] 120.0 U/L Normal 73.0-393.0 The [facility] Comment on above: Performed By: #### C MP, VIJI, LIPA, CMADM ####[facility] Uukqflqcrl4[address] [place] [address]Dr. Tadeo Smyth PROF 14(COMP METB)on 022 Albumin [Mass/Vol] 3.8 g/dL Normal 3.4-5.0 The [facility] Comment on above: Performed By: #### C MP, VIJI, LIPA, CMADM ####[facility] Buxabreuxn59[address] [place] [address]Dr. Tadeo Smyth Albumin/Globulin [Mass ratio] 1.1 {ratio} Normal The [facility] Comment on above: Performed By: #### C MP, VIJI, LIPA, CMADM ####[facility] Mzqbwzowti80[address] [place] [address]Dr. Tadeo Smyth ALP [Catalytic activity/Vol] 145 U/L Critically high 46-116 The [facility] Comment on above: Performed By: #### C MP, VIJI, LIPA, CMADM ####[facility] Jthkdnuzop0160 [place] [address]Dr. Tadeo Smyth ALT [Catalytic activity/Vol] 30 U/L Normal 14-59 The [facility] Comment on above: Performed By: #### C MP, VIJI, LIPA, CMADM ####[facility] Wirhjmwfpb3857 [place] [address]Dr. Tadeo Smyth Anion gap [Moles/Vol] 11.5 mmol/L Normal [facility] Comment on above: Performed By: #### C MP, VJII, LIPA, CMADM ####[facility] Ujydipgaly[address] [place] [address]Dr. Tadeo Smyth AST [Catalytic activity/Vol] 17 U/L Normal 15-37 [facility] Comment on above: Performed By: #### C MP, VIJI, LIPA, CMADM ####[facility] Abjtkcsopc0548 [place] [address]Dr. Tadeo Smyth Bilirubin [Mass/Vol] 0.1 mg/dL Critically low 0.2-1.0 [facility] Comment on above: Performed By: #### C MP, VIJI, LIPA, CMADM ####[facility] Merddelzkb6130 [place] [address]Dr. Tadeo Smyth Calcium [Mass/Vol] 8.9 mg/dL Normal 8.5-10.1 [facility] Comment on above: Performed By: #### C MP, VIJI, LIPA, CMADM ####[facility] Czvqvypfer6922 [place] [address]Dr. Tadeo Smyth Chloride [Moles/Vol] 104 mmol/L Normal 98-107 The [facility] Comment on above: Performed By: #### C MP, VIJI, LIPA, CMADM ####[facility] Oljhwngwlq7339 [place] [address]Dr. Tadeo Smyth CO2 [Moles/Vol] 27.2 mmol/L Normal 21.0-32.0 The [facility] Comment on above: Performed By: #### C MP, VIJI, LIPA, CMADM ####[facility] Rtamnznvun40[address] [place] [address]Dr. Tadeo Smyth Creatinine [Mass/Vol] 0.90 mg/dL Normal 0.55-1.02 The [facility] Comment on above: Performed By: #### C MP, VIJI, LIPA, CMADM ####[facility] Atunozwngz32[address] [place] [address]Dr. Tadeo Smyth EGFR-AF CROATIAN >60 Normal >=60 The [facility] Comment on above: Performed By: #### C MP, VIJI, LIPA, CMADM ####[facility] Frpkjevomm9181 [place] [address]Dr. Tadeo Smyth EGFR-NON AF CROATIAN >60 Normal >=60 The [facility] Comment on above: Performed By: #### C MP, VIJI, LIPA, CMADM ####[facility] Ugxnokxoqg8678 [place] [address]Dr. Tadeo Smyth Globulin (S) [Mass/Vol] 3.5 g/dL Normal The [facility] Comment on above: Performed By: #### C MP, VIJI, LIPA, CMADM ####[facility] Ynoibucgzo[address] [place], [place] [address]Dr. Tadeo Smyth Glucose [Mass/Vol] 98 mg/dL Normal 74-106 The [facility] Comment on above: Performed By: #### C MP, VIJI, LIPA, CMADM ####[facility] Qyhpbdkjcg35[address] [place], [place] [address]Dr. Tadeo Smyth Potassium [Moles/Vol] 3.7 mmol/L Normal 3.5-5.1 The [facility] Comment on above: Performed By: #### C MP, VIJI, LIPA, CMADM ####[facility] Lxmazbxkml[address] [place], [place] [address]Dr. Tadeo Smyth Protein [Mass/Vol] 7.3 g/dL Normal 6.4-8.2 The [facility] Comment on above: Performed By: #### C MP, VIJI, LIPA, CMADM ####[facility] Dpecfmdzmc4078 [place] [address]Dr. Tadeo Smyth Sodium [Moles/Vol] 139 mmol/L Normal 136-145 The [facility] Comment on above: Performed By: #### C VIJI GARCIA LIPA, CMADM ####[facility] Hqbkwlikgp3894 [place] [address]Dr. Tadeo Smyth Urea nitrogen [Mass/Vol] 25.0 mg/dL Critically high 7.0-18.0 The [facility] Comment on above: Performed By: #### C VIJI GARCIA LIPA, CMADM ####[facility] Amtukgwlle8643 [place] [address]Dr. Tadeo Smyth Urea nitrogen/Creatinine [Mass ratio] 27.8 mg/mg Normal The [facility] Comment on above: Performed By: #### C VIJI GARCIA LIPA, CMAMARGARITO ####[facility] Cotgfhgtmw97[address] [place] [address]Dr. Tadeo Smyth URINE MICROSCOPIC ONLYon BACTERIA NONE SEEN Normal NONE SEEN The [facility] Comment on above: Performed By: #### SANDRO MERCHANTRO ####[facility] Aqqohsrsbx[address] [place], [place] [address]Dr. Tadeo Smyth Bacteria identified Cx Nom (U) NOT INDICATED Normal The [facility] Comment on above: Performed By: #### KAROL MERCHANT ####[facility] Vyppyalaml9864 [place] [address]Dr. Tadeo Smyth CAST NONE SEEN Normal NONE SEEN The [facility] Comment on above: Performed By: #### SANDRO MERCHANTRO ####[facility] Hajirmlppc68[address] [place] [address]Dr. Tadeo Smyth Crystals LM Nom (Urine sed) NONE SEEN Normal NONE SEEN The [facility] Comment on above: Performed By: #### SANDRO MERCHANTRO ####[facility] Dwhzmyrykd2618 [place] [address]Dr. Tadeo Smyth Epithelial cells LM Ql (Urine sed) FEW Abnormal NONE SEEN /RARE The [facility] Comment on above: Performed By: #### SANDRO MERCHANTRO ####[facility] [address]fjojgjg[address] [place], [place] [address]Dr. Margotnicole Smyth MUCOUS NONE SEEN Normal NONE SEEN The [facility] Comment on above: Performed By: #### KAROL MERCHANT ####[facility] Khcamshzbi77[address] [place], [place] [address]Gq. Tadeo Haja RBC 2-5 Abnormal 0-2 [facility] Comment on above: Performed By: #### SANDRO MERCHANTRO ####[facility] Sfoftsbtzm7614 [place], [place] [address]Vd. Tadeo Smyth WBC NONE SEEN Normal NONE SEEN [facility] Comment on above: Performed By: #### KAROL MERCHANT ####[facility] Rqnbvoqocu9968 [place], [place] [address]Rg. Tadeo Smyth Gastroenterology Office/Clin ic Noteon 07-24-2022 [...] Nunez to record this visit. JOSE FRANCISCO health and safety specialist and provider reviewed before signing. JOSE FRANCISCO: Darlene Gagnon. Follow-up No qualifying data available Problem List/Past [...] 10 mg= (more content not included)... Normal [facility] Comment on above: Result Comment: Elec tronically Signed By: Agata Nunes\.br\Date and Time Signed: 07/22/22 16:25 EST\.br\Electronically Co-Signed By: Anai REAGAN MD\.br\Date and Time Co-Signed: 07/24/22 15:06 EST AMYLASEon 07-21-2022 Amylase [Catalytic activity/Vol] 49 U/L Normal 25-115 [facility] Comment on above: Performed By: #### L IPA, VIJI, CMP ####[facility] [address]oz[address] [place] [address]Dr. Tadeo Haja CBC AUTO DIFFon 07-21-2022 BASO # 0.0 103/ul Normal 0.0-0.1 [facility] Comment on above: Performed By: #### C BC ####[facility] Tpdipdypud[address] [place] [address]Dr. Tadeo Smyth Basophils/100 WBC (Bld) 0.6 % Normal 0.2-2.0 [facility] Comment on above: Performed By: #### C BC ####[facility] Xrvyryxsgc[address] [place], [place] [address]Dr. Tadeo Smyth EO # 0.2 103/ul Normal 0.0-0.7 [facility] Comment on above: Performed By: #### C BC ####[facility] Ltiryvhsfj[address] [place], [place] [address]Dr. Tadeo Smyth Eosinophils/100 WBC (Bld) 3.1 % Normal 0.9-7.0 [facility] Comment on above: Performed By: #### C BC ####[facility] Nsvhzudzfh[address] [place], [place] [address]Dr. Tadeo Smyth Erythrocyte distribution width (RBC) [Ratio] 13.2 % Normal 11.0-15.0 [facility] Comment on above: Performed By: #### C BC ####[facility] Wmavwsgkgk[address] [place], [place] [address]Dr. Tadeo Smyth Hematocrit (Bld) [Volume fraction] 35.7 % Critically low 36.0-48.0 [facility] Comment on above: Performed By: #### C BC ####[facility] Tugrvchlja[address] [place], [place] [address]Dr. Tadeo Smyth Hemoglobin (Bld) [Mass/Vol] 11.6 g/dL Critically low 12.0-16.0 [facility] Comment on above: Performed By: #### C BC ####[facility] Kyibpizkoq8[address] [place], [place] [address]Dr. Tadeo Smyth IG # 0.01 10e3/ul Normal 0.00-0.03 [facility] Comment on above: Performed By: #### C BC ####[facility] Kpsgdlgvel34[address] [place] [address]Dr. Tadeo Smyth IG % 0.2 % Normal 0.0-0.5 [facility] Comment on above: Performed By: #### C BC ####[facility] Owwojwrxof27[address] [place] [address]Dr. Tadeo Smyth LYMPH # 1.9 103/ul Normal 1.2-3.8 [facility] Comment on above: Performed By: #### C BC ####[facility] Xrxipuwttc38[address] [place] [address]DrNeo Tadeo Haja Lymphocytes/100 WBC (Bld) 34.8 % Normal 20.5-60.0 [facility] Comment on above: Performed By: #### C BC ####[facility] Atnngmalml[address] [place], [place] [address]Dr. Tadeo Smyth MANUAL DIFF REQ NO Normal [facility] Comment on above: Performed By: #### C BC ####[facility] Zddxwlwapn[address] [place], [place] [address]Dr. Tadeo Smyth MCH (RBC) [Entitic mass] 29.1 pg Normal 26.7-34.0 [facility] Comment on above: Performed By: #### C BC ####[facility] Enrvkfudnw90[address] [place], [place] [address]Dr. Tadeo Smyth MCHC (RBC) [Mass/Vol] 32.5 g/dL Normal 29.9-35.2 [facility] Comment on above: Performed By: #### C BC ####[facility] Cqdtvrjnoq[address] [place], [place] [address]DrNeo Tadeo Smyth MCV (RBC) [Entitic vol] 89.7 fL Normal 81.0-99.0 [facility] Comment on above: Performed By: #### C BC ####[facility] Wyqcpgiprn3[address] [place], [place] [address]DrNeo Tadeo Haja MONO # 0.3 103/ul Normal 0.3-0.8 [facility] Comment on above: Performed By: #### C BC ####[facility] Qjchztiasi57[address] [place] [address]Dr. Tadeo Smyth Monocytes/100 WBC (Bld) 6.1 % Normal 1.7-12.0 [facility] Comment on above: Performed By: #### C BC ####[facility] Fxpwggckez4[address] [place] [address]Dr. Tadeo Smyth NEUT # 3.0 103/ul Normal 1.4-6.5 [facility] Comment on above: Performed By: #### C BC ####[facility] Tctpduomjz29[address] [place] [address]Dr. Tadeo Smyth Neutrophils/100 WBC (Bld) 55.2 % Normal 43.0-75.0 [facility] Comment on above: Performed By: #### C BC ####[facility] Hoyqlhhnog20[address] [place] [address]Dr. Tadeo Smyth Platelet mean volume (Bld) [Entitic vol] 9.0 fL Critically low 9.5-13.5 [facility] Comment on above: Performed By: #### C BC ####[facility] Akspsfeuht[address] [place], [place] [address]Dr. Tadeo Smyth PLT 358 103/ul Normal 150-450 [facility] Comment on above: Performed By: #### C BC ####[facility] Iwqqbgtzqz4348 [place] [address]Dr. Tadeo Smyth RBC 3.98 106/ul Critically low 4.20-5.40 [facility] Comment on above: Performed By: #### C BC ####[facility] Ywiiwzgmvz7353 [place] [address]Dr. Tadeo Smyth WBC 5.4 103/ul Normal 4.0-11.0 [facility] Comment on above: Performed By: #### C BC ####[facility] Itnkoiwvuk7[address] [place] [address]Dr. Tadeo Smyth LIPASEon 07-21-2022 Lipase [Catalytic activity/Vol] 54.0 U/L Critically low 73.0-393.0 [facility] Comment on above: Performed By: #### L VIJI HALL, CMP ####[facility] Kmutqpupkl[address] [place] [address]Dr. Tadeo Smyth PROF 14(COMP METB)on 022 Albumin [Mass/Vol] 3.5 g/dL Normal 3.4-5.0 [facility] Comment on above: Performed By: #### L VIJI HALL, CMP ####[facility] Zamtfgswct0766 [place] [address]Dr. Tadeo Smyth Albumin/Globulin [Mass ratio] 0.9 {ratio} Normal [facility] Comment on above: Performed By: #### L VIJI HALL, CMP ####[facility] Yucgfotisb0525 [place] [address]Dr. Tadeo Smyth ALP [Catalytic activity/Vol] 127 U/L Critically high 46-116 [facility] Comment on above: Performed By: #### L VIJI HALL, CMP ####[facility] Ezlywmpddo9[address] [place], [place] [address]Dr. Tadeo Smyth ALT [Catalytic activity/Vol] 16 U/L Normal 14-59 [facility] Comment on above: Performed By: #### L VIJI HALL, CMP ####[facility] Qfcgqitvdx8432[address] [place], [place] [address]Dr. Tadeo Smyth Anion gap [Moles/Vol] 10.6 mmol/L Normal [facility] Comment on above: Performed By: #### L VIJI HALL, CMP ####[facility] Lqxjjislrj9522 [place] [address]Dr. Tadeo Smyth AST [Catalytic activity/Vol] 16 U/L Normal 15-37 [facility] Comment on above: Performed By: #### L VIJI HALL, CMP ####[facility] Crgworoqrk2256[address] [place], [place] [address]Dr. Tadeo Smyth Bilirubin [Mass/Vol] 0.3 mg/dL Normal 0.2-1.0 [facility] Comment on above: Performed By: #### L VIJI HALL, CMP ####[facility] Ayallrrhvs72[address] [place] [address]Dr. Tadeo Smyth Calcium [Mass/Vol] 9.1 mg/dL Normal 8.5-10.1 [facility] Comment on above: Performed By: #### L VIJI HALL, CMP ####[facility] Xcoyxrlcwx4[address] [place] [address]Dr. Tadeo Smyth Chloride [Moles/Vol] 104 mmol/L Normal 98-107 [facility] Comment on above: Performed By: #### L VIJI HALL, CMP ####[facility] Qxueuyeoos79[address] [place] [address]Dr. Tadeo Smyth CO2 [Moles/Vol] 28.0 mmol/L Normal 21.0-32.0 [facility] Comment on above: Performed By: #### L VIJI HALL, CMP ####[facility] Wptbouzkwn[address] [place], [place] [address]Dr. Tadeo Smyth Creatinine [Mass/Vol] 0.96 mg/dL Normal 0.55-1.02 [facility] Comment on above: Performed By: #### L VIJI HALL, CMP ####[facility] Rpcbihwmrx4129[address] [place], [place] [address]Dr. Tadeo Smyth EGFR-AF CROATIAN >60 Normal >=60 [facility] Comment on above: Performed By: #### L VIJI HALL, CMP ####[facility] Tsasotcgmy7163[address] [place], [place] [address]Dr. Tadeo Smyth EGFR-NON AF CROATIAN >60 Normal >=60 [facility] Comment on above: Performed By: #### L VIJI HALL, CMP ####[facility] Inwfbhfxjz1048[address] [place], [place] [address]Dr. Tadeo Smyth Globulin (S) [Mass/Vol] 3.8 g/dL Normal [facility] Comment on above: Performed By: #### L VIJI HALL, CMP ####[facility] Ckpfrfqlfu9[address] [place], [place] [address]Dr. Tadeo Smyth Glucose [Mass/Vol] 93 mg/dL Normal 74-106 [facility] Comment on above: Performed By: #### L VIJI HALL, CMP ####[facility] Iasmevbmsi5053 [place] [address]Dr. Tadeo Smyth Potassium [Moles/Vol] 3.6 mmol/L Normal 3.5-5.1 [facility] Comment on above: Performed By: #### L VIJI HALL, CMP ####[facility] Pfolcpnlmv6236 [place] [address]Dr. Tadeo Smyth Protein [Mass/Vol] 7.3 g/dL Normal 6.4-8.2 [facility] Comment on above: Performed By: #### L VIJI HALL, CMP ####[facility] Yedsoharyx[address] [place], [place] [address]Dr. Tadeo Smtyh Sodium [Moles/Vol] 139 mmol/L Normal 136-145 [facility] Comment on above: Performed By: #### L VIJI HALL, CMP ####[facility] Smipiviqjb1494[address] [place], [place] [address]Dr. Tadeo Smyth Urea nitrogen [Mass/Vol] 16.0 mg/dL Normal 7.0-18.0 [facility] Comment on above: Performed By: #### L VIJI HALL, CMP ####[facility] Ykxsrkgyeu7579[address] [place], [place] [address]Dr. Tadeo Smyth Urea nitrogen/Creatinine [Mass ratio] 16.7 mg/mg Normal [facility] Comment on above: Performed By: #### L VIJI HALL, CMP ####[facility] Aynhcrbpth[address] [place], [place] [address]Dr. Tadeo Smyth XR ABD FLAT UP_PA Kasey 07-21 XR ABD FLAT UP_PA CH Normal [facility] CULTURE URINEon 07-10-2022 CULTURE URINE Normal [facility] Comment on above: Performed By: #### U RCX ####[facility] Dxkzdbbnfe7687[address] [place], [place] [address]Dr. Tadeo Smyth INSULINon 07-09-2022 Insulin 15.9 uIU/mL Normal 2.6-24.9 [facility] Comment on above: Performed By: #### I NSULIN ####[facility] Fgoghxjrre95[address] [place] [phone]. Tadeo Smyth CBC AUTO DIFFon 07-08-2022 BASO # 0.0 103/ul Normal 0.0-0.1 [facility] Comment on above: Performed By: #### C BC ####[facility] Osobcrcotf[address] [place], [place] [address]Dr. Margotnicole Smyth Basophils/100 WBC (Bld) 0.6 % Normal 0.2-2.0 [facility] Comment on above: Performed By: #### C BC ####[facility] Fqvgsnhdgp500[address] [place], [place] [address]Dr. Margotnicole Smyth EO # 0.2 103/ul Normal 0.0-0.7 [facility] Comment on above: Performed By: #### C BC ####[facility] Ujqskxapdr1072[address] [place], [place] [address]Dr. Tadeo Smyth Eosinophils/100 WBC (Bld) 3.4 % Normal 0.9-7.0 [facility] Comment on above: Performed By: #### C BC ####[facility] Aimpxdznal4649[address] [place], [place] [address]Dr. Margotnicole Smyth Erythrocyte distribution width (RBC) [Ratio] 13.1 % Normal 11.0-15.0 [facility] Comment on above: Performed By: #### C BC ####[facility] Calccgpzfi3024[address] [place], [place] [address]Dr. Margotnicole Smyth Hematocrit (Bld) [Volume fraction] 42.4 % Normal 36.0-48.0 [facility] Comment on above: Performed By: #### C BC ####[facility] Xicytrjrcc0913[address] [place], [place] [address]Dr. Tadeo Smyth Hemoglobin (Bld) [Mass/Vol] 13.7 g/dL Normal 12.0-16.0 [facility] Comment on above: Performed By: #### C BC ####[facility] Xnxlzughun7176[address] [place], [place] [address]Dr. Tadeo Smyth IG # 0.01 10e3/ul Normal 0.00-0.03 [facility] Comment on above: Performed By: #### C BC ####[facility] Bjmkznbkxo[address] [place] [phone]. Tadeo Smyth IG % 0.2 % Normal 0.0-0.5 [facility] Comment on above: Performed By: #### C BC ####[facility] Wtgqslxrfx8909 [place] [phone]. Tadeo Smyth LYMPH # 2.1 103/ul Normal 1.2-3.8 [facility] Comment on above: Performed By: #### C BC ####[facility] Gxxohpjvla6125 [place] [address]Dr. Tadeo Haja Lymphocytes/100 WBC (Bld) 41.2 % Normal 20.5-60.0 [facility] Comment on above: Performed By: #### C BC ####[facility] Svrlfgjbbs5669[address] [place], [place] [address]Dr. Tadeo Smyth MANUAL DIFF REQ NO Normal [facility] Comment on above: Performed By: #### C BC ####[facility] H[address]ajghxiiw[address] [place], [place] [id number]. Tadeo Smyth MCH (RBC) [Entitic mass] 28.8 pg Normal 26.7-34.0 [facility] Comment on above: Performed By: #### C BC ####[facility] Lzibqwnhcb34[address] [place], [place] [address]Dr. Tadeo Smyth MCHC (RBC) [Mass/Vol] 32.3 g/dL Normal 29.9-35.2 [facility] Comment on above: Performed By: #### C BC ####[facility] Udmppveqqo[address] [place], [place] [address]Dr. Tadeo Smyth MCV (RBC) [Entitic vol] 89.3 fL Normal 81.0-99.0 [facility] Comment on above: Performed By: #### C BC ####[facility] Aweilbustw64[address] [place], [place] [address]Dr. Tadeo Haja MONO # 0.4 103/ul Normal 0.3-0.8 [facility] Comment on above: Performed By: #### C BC ####[facility] Hewqqgaabp5750 [place] [phone]. Tadeo Smyth Monocytes/100 WBC (Bld) 8.1 % Normal 1.7-12.0 [facility] Comment on above: Performed By: #### C BC ####[facility] Estvimprax9206 [place] [phone]. Tadeo Smyth NEUT # 2.4 103/ul Normal 1.4-6.5 [facility] Comment on above: Performed By: #### C BC ####[facility] Rhiwgukvlf0118 [place] [phone]. Tadeo Smyth Neutrophils/100 WBC (Bld) 46.5 % Normal 43.0-75.0 [facility] Comment on above: Performed By: #### C BC ####[facility] Ngkaowckgo9648 [place] [phone]. Tadeo Smyth Platelet mean volume (Bld) [Entitic vol] 9.3 fL Critically low 9.5-13.5 [facility] Comment on above: Performed By: #### C BC ####[facility] Lmvcpoqaeq1027 [place] [phone]. Tadeo Smyth PLT 443 103/ul Normal 150-450 [facility] Comment on above: Performed By: #### C BC ####[facility] Rztembawmh7611 [place] [phone]. Tadeo Smyth RBC 4.75 106/ul Normal 4.20-5.40 [facility] Comment on above: Performed By: #### C BC ####[facility] Zcphrgaekw[address] [place], [place] [address]Dr. Tadeo Smyth WBC 5.1 103/ul Normal 4.0-11.0 [facility] Comment on above: Performed By: #### C BC ####[facility] Srndkixtoj[address] [place], [place] [address]Dr. Tadeo Smyth FREE THYROXINE INDEX T7on FTI 2.91 Normal 1.30-4.50 [facility] Comment on above: Performed By: #### T 7, LIPID, TSH, CMP ####[facility] Ahrnwyjnqg0520 [place] [phone]. Tadeo Smyth T3U 31.0 % Normal 30.0-39.0 [facility] Comment on above: Performed By: #### T 7, LIPID, TSH, CMP ####[facility] Drvaqdxpht6865 [place] [phone]. Tadeo Smyth T4 [Mass/Vol] 9.40 ug/dL Normal 4.80-13.90 [facility] Comment on above: Performed By: #### T 7, LIPID, TSH, CMP ####[facility] Tvpkexawbg9809 [place] [address]Dr. Tadeo Smyth GLYCOHEMOGLOBIN A1Con 2021 ADA RECOMMENDATION SEE BELOW Normal [facility] Comment on above: Result Comment: ADA RECOMMENDED LIMIT 4.0 - 6.0 ADA THERAPEUTIC TARGET < 7.0 ACTION SUGGESTED > 7.0 Performed By: #### A 1C ####[facility] Ibgntixcrf[address] [place], [place] [address]Dr. Tadeo Smyth Glucose [Mass/Vol] 120 mg/dL Normal [facility] Comment on above: Performed By: #### A 1C ####[facility] Mkgabonnzf34[address] [place], [place] [address]Dr. Tadeo Smyth HbA1c (Bld) [Mass fraction] 5.8 % Normal 4.5-6.2 [facility] Comment on above: Performed By: #### A 1C ####[facility] Yvufuuwlbm[address] [place], [place] [address]Dr. Tadeo mSyth IRONon 07-08-2022 Iron [Mass/Vol] 59.0 ug/dL Normal 50.0-170.0 [facility] Comment on above: Performed By: #### I KEEGAN ####[facility] Nwzfmcprfc6[address] [place], [place] [address]Dr. Tadeo Smyth LIPID PROFILEon 07-08-2022 CHOL-HDL RATIO NORM SEE BELOW Normal [facility] Comment on above: Result Comment: 3.3 - 4.4 LOW RISK 4.4 - 7.1 AVERAGE RISK 7.1 - 11.0 MODERATE RISK >11.0 HIGH RISK Performed By: #### T 7, LIPID, TSH, CMP ####[facility] Unusonxkxz2116 [place] [phone]. Tadeo Smyth Cholesterol [Mass/Vol] 227 mg/dL Critically high <=200 [facility] Comment on above: Performed By: #### T 7, LIPID, TSH, CMP ####[facility] Chjfigfxvx4185 [place] [phone]. Tadeo Smyth Cholesterol in HDL [Mass/Vol] 67 mg/dL Critically high 40-60 [facility] Comment on above: Performed By: #### T 7, LIPID, TSH, CMP ####[facility] Fkhulvxevk8054 [place] [address]Dr. Tadeo Smyth Cholesterol in LDL [Mass/Vol] 139.0 mg/dL Normal [facility] Comment on above: Performed By: #### T 7, LIPID, TSH, CMP ####[facility] Sfvbqutode[address] [place], [place] [address]Dr. Tadeo Smyth Cholesterol.total/Cho lesterol in HDL [Mass ratio] 3.4 {ratio} Normal [facility] Comment on above: Performed By: #### T 7, LIPID, TSH, CMP ####[facility] Ndhtznarud3510 [place] [phone]. Tadeo Smyth HDL NORMAL > or = 60 mg/dl - LO W CARDIOVASCULAR RISK <40 mg/dl - HIGH CARDIOVASCULAR RISK Normal [facility] Comment on above: Performed By: #### T 7, LIPID, TSH, CMP ####[facility] Oistrmovcv3798 [place] [phone]. Tadeo Smyth LDL CALC NORMAL SEE BELOW Normal [facility] Comment on above: Result Comment: <100 mg/dl OPTIMAL 100 - 129 mg/dl NEAR OR ABOVE OPTIMAL 130 - 159 mg/dl BORDERLINE HIGH 160 - 189 mg/dl HIGH >190 mg/dl VERY HIGH Performed By: #### T 7, LIPID, TSH, CMP ####[facility] Zzklciastl1808 [place] [address]Dr. Tadeo Smyth Triglyceride [Mass/Vol] 105 mg/dL Normal <=150 [facility] Comment on above: Performed By: #### T 7, LIPID, TSH, CMP ####[facility] Fsuskmkklz5695 [place] [address]Dr. Tadeo Smyth VLDL CALC 21.0 mg/dL Normal [facility] Comment on above: Performed By: #### T 7, LIPID, TSH, CMP ####[facility] Wsbwwxikpx0766 [place] [address]Dr. Tadeo Smyth OCC BLD IMMUNO SCREENon 11 OCCULT BLOOD Negative Normal NEGATIVE [facility] Comment on above: Performed By: #### O BSCRN ####[facility] Lnszznqdyx45[address] [place] [address]Dr. Tadeo Smyth PROF 14(COMP METB)on 022 Albumin [Mass/Vol] 3.7 g/dL Normal 3.4-5.0 [facility] Comment on above: Performed By: #### T 7, LIPID, TSH, CMP ####[facility] Gogluvhfsz9752 [place] [address]Dr. Tadeo Smyth Albumin/Globulin [Mass ratio] 0.8 {ratio} Normal [facility] Comment on above: Performed By: #### T 7, LIPID, TSH, CMP ####[facility] Yuahkavfwd2548 [place] [address]Dr. Tadeo Smyth ALP [Catalytic activity/Vol] 141 U/L Critically high 46-116 [facility] Comment on above: Performed By: #### T 7, LIPID, TSH, CMP ####[facility] Jtcifisrgh5344 [place] [address]Dr. Tadeo Smyth ALT [Catalytic activity/Vol] 23 U/L Normal 14-59 [facility] Comment on above: Performed By: #### T 7, LIPID, TSH, CMP ####[facility] Kvzklicmqs6067 [place] [address]Dr. Tadeo Smyth Anion gap [Moles/Vol] 9.8 mmol/L Normal [facility] Comment on above: Performed By: #### T 7, LIPID, TSH, CMP ####[facility] Trtrrxfanl5090 [place] [address]Dr. Tadeo Smyth AST [Catalytic activity/Vol] 13 U/L Critically low 15-37 [facility] Comment on above: Performed By: #### T 7, LIPID, TSH, CMP ####[facility] Zyrpfzeoza[address] [place], [place] [address]Dr. Tadeo Smyth Bilirubin [Mass/Vol] 0.4 mg/dL Normal 0.2-1.0 [facility] Comment on above: Performed By: #### T 7, LIPID, TSH, CMP ####[facility] Boscwvsptz[address] [place], [place] [address]Dr. Tadeo Smyth Calcium [Mass/Vol] 10.2 mg/dL Critically high 8.5-10.1 [facility] Comment on above: Performed By: #### T 7, LIPID, TSH, CMP ####[facility] Wsjslgoaeu[address] [place], [place] [address]Dr. Tadeo Smyth Chloride [Moles/Vol] 101 mmol/L Normal 98-107 [facility] Comment on above: Performed By: #### T 7, LIPID, TSH, CMP ####[facility] Tvvhetpfjx8[address] [place], [place] [address]Dr. Tadeo Smyth CO2 [Moles/Vol] 32.8 mmol/L Critically high 21.0-32.0 [facility] Comment on above: Performed By: #### T 7, LIPID, TSH, CMP ####[facility] Yrlaiaflzq[address] [place], [place] [address]Dr. Tadeo Smyth Creatinine [Mass/Vol] 0.92 mg/dL Normal 0.55-1.02 [facility] Comment on above: Performed By: #### T 7, LIPID, TSH, CMP ####[facility] Ckpzzjtbqr[address] [place], [place] [address]Dr. Tadeo Smyth EGFR-AF CROATIAN >60 Normal >=60 [facility] Comment on above: Performed By: #### T 7, LIPID, TSH, CMP ####[facility] Ezzrmphsqi[address] [place], [place] [address]Dr. Tadeo Smyth EGFR-NON AF CROATIAN >60 Normal >=60 [facility] Comment on above: Performed By: #### T 7, LIPID, TSH, CMP ####[facility] [facility] [address] [place] [address]Dr. Tadeo Smyth Globulin (S) [Mass/Vol] 4.8 g/dL Normal [facility] Comment on above: Performed By: #### T 7, LIPID, TSH, CMP ####[facility] [address]lkqynibom[address] [place] [address]Dr. Tadeo Smyth Glucose [Mass/Vol] 114 mg/dL Critically high 74-106 [facility] Comment on above: Performed By: #### T 7, LIPID, TSH, CMP ####[facility] Hlfmwsrkuq[address] [place], [place] [address]Dr. Tadeo Smyth Potassium [Moles/Vol] 3.6 mmol/L Normal 3.5-5.1 [facility] Comment on above: Performed By: #### T 7, LIPID, TSH, CMP ####[facility] Dumnffqift9[address] [place], [place] [address]Dr. Tadeo Smyth Protein [Mass/Vol] 8.5 g/dL Critically high 6.4-8.2 [facility] Comment on above: Performed By: #### T 7, LIPID, TSH, CMP ####[facility] Hdlhtqrved[address] [place], [place] [address]Dr. Tadeo Smyth Sodium [Moles/Vol] 140 mmol/L Normal 136-145 [facility] Comment on above: Performed By: #### T 7, LIPID, TSH, CMP ####[facility] Kmqwakpvkg[address] [place], [place] [address]Dr. Tadeo Smyth Urea nitrogen [Mass/Vol] 23.0 mg/dL Critically high 7.0-18.0 [facility] Comment on above: Performed By: #### T 7, LIPID, TSH, CMP ####[facility] Zizsddlirv0[address] [place], [place] [address]Dr. Tadeo Smyth Urea nitrogen/Creatinine [Mass ratio] 25.0 mg/mg Normal [facility] Comment on above: Performed By: #### T 7, LIPID, TSH, CMP ####[facility] [address]hr[address] [place] [phone]. Margotnicole Haja TSHon 07-08-2022 TSH 3.748 uIU/mL Critically high 0.358-3.740 [facility] Comment on above: Performed By: #### T 7, LIPID, TSH, CMP ####[facility] [address]hxfjajdz[address] [place] [address]Dr. Tadeo Smyth UA RANDOM W/MICROSCOPICon BACTERIA TRACE Abnormal NONE SEEN The [facility] Comment on above: Performed By: #### U AMIC ####[facility] Uldxxresfm[address] [place] [address]Dr. Tadeo Smyth Bilirubin Ql (U) Negative Normal NEGATIVE [facility] Comment on above: Performed By: #### U AMIC ####[facility] Znvzlvjtik0[address] [place] [address]Dr. Tadeo Smyth CAST NONE SEEN Normal NONE SEEN [facility] Comment on above: Performed By: #### U AMIC ####[facility] Wjbcbjpper6[address] [place] [address]Dr. Tadeo Smyth Clarity (U) CLEAR Normal CLEAR [facility] Comment on above: Performed By: #### U AMIC ####[facility] Qkolkdzcvu1483 [place] [address]Dr. Tadeo Smyth Color (U) YELLOW Normal YELLOW [facility] Comment on above: Performed By: #### U AMIC ####[facility] Nmbbqeiddi72[address] [place] [address]Dr. Tadeo Smyth Crystals LM Nom (Urine sed) NONE SEEN Normal NONE SEEN The [facility] Comment on above: Performed By: #### U AMIC ####[facility] Wqytfaytpm235[address] [place], [place] [address]Dr. Tadeo Smyth Epithelial cells LM Ql (Urine sed) FEW Abnormal NONE SEEN /RARE [facility] Comment on above: Performed By: #### U AMIC ####[facility] Wznbkrijkc1096[address] [place], [place] [address]Dr. Tadeo Smyth Glucose Ql (U) Negative Normal NEGATIVE [facility] Comment on above: Performed By: #### U AMIC ####[facility] Gajikcznlo[address] [place] [address]Dr. Tadeo Smyth Hemoglobin Ql (U) SMALL Abnormal NEGATIVE [facility] Comment on above: Performed By: #### U AMIC ####[facility] Pcjxvohmty40[address] [place] [address]Dr. Tadeo Smyth Ketones Ql (U) TRACE Abnormal NEGATIVE [facility] Comment on above: Performed By: #### U AMIC ####[facility] Skczxduqha1755[address] [place], [place] [address]Dr. Tadeo Smyth LEUKOCYTES TRACE Abnormal NEGATIVE The [facility] Comment on above: Performed By: #### U AMIC ####[facility] Dkicotlmtd9774[address] [place], [place] [address]Dr. Tadeo Smyth MUCOUS NONE SEEN Normal NONE SEEN The [facility] Comment on above: Performed By: #### U AMIC ####[facility] Ztjsmtfnhy569[address] [place], [place] [address]Dr. Tadeo Smyht Nitrite Ql (U) Negative Normal NEGATIVE The [facility] Comment on above: Performed By: #### U AMIC ####[facility] Bdthgdnacs7866[address] [place], [place] [address]Dr. Tadeo Smyth pH (U) 6.5 [pH] Normal 5-9 [facility] Comment on above: Performed By: #### U AMIC ####[facility] Waxbjmpzut1495[address] [place], [place] [address]Dr. Tadeo Smyth RBC 5-10 Abnormal 0-2 [facility] Comment on above: Performed By: #### U AMIC ####[facility] Yjxysvadzb9187[address] [place], [place] [address]Dr. Tadeo Smyth SPEC GRAVITY 1.020 Normal 1.005-<=1.0 25 [facility] Comment on above: Performed By: #### U AMIC ####[facility] Qtlrbkzzxy6411[address] [place], [place] [address]Dr. Tadeo Smyth UA PROTEIN 30 mg/dl Abnormal NEGATIVE/ TRACE The [facility] Comment on above: Performed By: #### U AMIC ####[facility] Idjivjzzwl9550 [place], [place] [address]Jw. Tadeo Smyth Urobilinogen Qn (U) 0.2 {Benito'U}/dL Normal 0.2 - 1. 0 [facility] Comment on above: Performed By: #### U AMIC ####[facility] Abostyftqy0626 [place], [place] [address]Nn. Tadeo Smyth WBC 2-5 Abnormal NONE SEEN The [facility] Comment on above: Performed By: #### U AMIC ####[facility] Enrhdwvqkw7647 [place], [place] [address]Ky. Tadeo Haja Covid-19 PCR (CVDTBH)on 06-07 SARS-CoV-2 (COVID-19) RNA CHEN+probe Ql (Unsp spec) Not detected Normal NOT DETECTED [facility] Comment on above: Result Comment: When [...] for this test is supported by the Assistant Professor Of [employer] of [employer] and Human Service's declaration that [...] be used). Performed By: #### C VDTBH ####[facility] Ldarwmwaov84[address] [place] [phone]. Tadeo Haja CULTURE URINEon 06-09-2022 CULTURE URINE Normal [facility] Comment on above: Performed By: #### U RCX ####[facility] Xzkaekjiaf28[address] [place] [phone]. Tadeo Smyth GI PANEL (PCR)on 06-07-2022 Adenovirus F 40/41 Not detected Normal NOT DETECTED The [facility] Comment on above: Performed By: #### G IPANEL ####[facility] Tcjqsrzvyd13[address] [place], [place] [address]Dr. Tadeo Smyth Astrovirus Not detected Normal NOT DETECTED The [facility] Comment on above: Performed By: #### G IPANEL ####[facility] Kzbfvqpjna1209[address] [place], [place] [address]Dr. Tadeo Smyth C. Diff toxin A/B Not detected Normal NOT DETECTED [facility] Comment on above: Performed By: #### G IPANEL ####[facility] Ysisugngfw0317[address] [place], [place] [address]Dr. Tadeo Smyth Campylobacter Not detected Normal NOT DETECTED [facility] Comment on above: Performed By: #### G IPANEL ####[facility] Tulihsedzz232[address] [place], [place] [address]Dr. Tadeo Smyth Cryptosporidium Not detected Normal NOT DETECTED [facility] Comment on above: Performed By: #### G IPANEL ####[facility] Rzwkbuklrj040[address] [place], [place] [address]Dr. Tadeo Smyth Cyclos. Cayetanensis Not detected Normal NOT DETECTED The [facility] Comment on above: Performed By: #### G IPANEL ####[facility] Tqgsppxguj488[address] [place], [place] [address]Dr. Tadeo Smyth E. Coli O157 Not Applicable Normal Not Applicable [facility] Comment on above: Performed By: #### G IPANEL ####[facility] Axexmtkhsm050[address] [place], [place] [address]Dr. Tadeo Smyth E. histolytica Not detected Normal NOT DETECTED The [facility] Comment on above: Performed By: #### G IPANEL ####[facility] Evkncypdxr831018 [address] [place], [place] [address]Dr. Tadeo Smyth EAEC Not detected Normal NOT DETECTED [facility] Comment on above: Performed By: #### G IPANEL ####[facility] Rsvqoqbhyq3296[address] [place], [place] [address]Dr. Tadeo Smyth EIEC Not detected Normal NOT DETECTED [facility] Comment on above: Performed By: #### G IPANEL ####[facility] Nhtabxbgwf07[address] [place] [address]Dr. Tadeo Smyth EPEC Not detected Normal NOT DETECTED [facility] Comment on above: Performed By: #### G IPANEL ####[facility] Anoobxcgmz7860 [place] [address]Dr. Tadeo Smyth ETEC Not detected Normal NOT DETECTED [facility] Comment on above: Performed By: #### G IPANEL ####[facility] Moemhagbww29[address] [place] [address]Dr. Margotnicole Smyth G. Lamblia Not detected Normal NOT DETECTED [facility] Comment on above: Performed By: #### G IPANEL ####[facility] Xzxqofbaus355[address] [place], [place] [address]Dr. Tadeo Smyth GIPANEL CONTROLS PASSED Normal [facility] Comment on above: Performed By: #### G IPANEL ####[facility] Fjmfdrpsmh277[address] [place], [place] [address]Dr. Tadeo [facility] GI PANEL BACTERIA Normal T [facility] Comment on above: Performed By: #### G IPANEL ####[facility] Ayoowfckde5100[address] [place], [place] [address]Dr. Tadeo Smyth GIPNLHD ECOLI GI PANEL DIARRHEAGEN IC E.COLI / SHIGELLA Normal [facility] Comment on above: Performed By: #### G IPANEL ####[facility] Enjjcofunw9009[address] [place], [place] [address]Dr. Tadeo Smyth GIPNLHD INFO SEE BELOW Normal [facility] Comment on above: Result Comment: EAEC - Enteroaggregative E. Coli EPEC- Enteropathogenic E. Coli ETEC- Enterotoxigenic E. Coli lt/st STEC- Shigella-like toxin-producing E. Coli stx1/stx2 EIEC- Shigella/Enteroinvasive E. Coli Performed By: #### G IPANEL ####[facility] Dyjbuyosjs7[address] [place], [place] [address]Dr. Yinicole Smyth GIPNLHD PARASITES GI PANEL PARASITES Normal [facility] Comment on above: Performed By: #### G IPANEL ####[facility] Lbbanwukmg90[address] [place] [address]Dr. Tadeo Smyth GIPNLHD VIRUS GI PANEL VIRUSES Normal [facility] Comment on above: Performed By: #### G IPANEL ####[facility] Pekjdkkvqb5652 [place] [address]Dr. Tadeo Smyth Norovirus GI/GII Not detected Normal NOT DETECTED [facility] Comment on above: Performed By: #### G IPANEL ####[facility] Qivwqcsuiu9083[address] [place], [place] [address]Dr. Tadeo Smyth P. Shigelloides Not detected Normal NOT DETECTED The [facility] Comment on above: Performed By: #### G IPANEL ####[facility] Lhjyvkdhmi9844[address] [place], [place] [address]Dr. Tadeo Smyth Rotavirus A Not detected Normal NOT DETECTED [facility] Comment on above: Performed By: #### G IPANEL ####[facility] Jqabnpffih4486[address] [place], [place] [address]Dr. Tadeo Smyth Salmonella Not detected Normal NOT DETECTED [facility] Comment on above: Performed By: #### G IPANEL ####[facility] Lzkuftheti7589[address] [place], [place] [address]Dr. Tadeo Smyth Sapovirus Not detected Normal NOT DETECTED [facility] Comment on above: Performed By: #### G IPANEL ####[facility] Lquubcmrrh7303[address] [place], [place] [address]Dr. Tadeo Smyth STEC Not detected Normal NOT DETECTED [facility] Comment on above: Performed By: #### G IPANEL ####[facility] Yvgnswvzvk8334[address] [place], [place] [address]Dr. Tadeo Smyth Vibrio Not detected Normal NOT DETECTED [facility] Comment on above: Performed By: #### G IPANEL ####[facility] Kwfkzxeioc5533[address] [place], [place] [address]Dr. Tadeo Smyth Vibrio Cholera Not detected Normal NOT DETECTED [facility] Comment on above: Performed By: #### G IPANEL ####[facility] Bywlqmicii099818 [address] [place], [place] [address]Dr. Tadeo Smyth Y. Enterocolitica Not detected Normal NOT DETECTED [facility] Comment on above: Performed By: #### G IPANEL ####[facility] Wajogjefcu515[address] [place], [place] [address]Dr. Tadeo Smyth AMYLASEon 06-06-2022 Amylase [Catalytic activity/Vol] 61 U/L Normal 25-115 [facility] Comment on above: Performed By: #### A MY, LIPA ####[facility] Fjffquqhbi6367[address] [place], [place] [address]Dr. Tadeo Smyth CBC AUTO DIFFon 06-06-2022 BASO # 0.0 103/ul Normal 0.0-0.1 [facility] Comment on above: Performed By: #### C BC ####[facility] Xtzmyfrjga714[address] [place], [place] [address]Dr. Tadeo Smyth Basophils/100 WBC (Bld) 0.5 % Normal 0.2-2.0 [facility] Comment on above: Performed By: #### C BC ####[facility] Btxhmuocgi9867[address] [place], [place] [address]Dr. Tadeo Smyth EO # 0.2 103/ul Normal 0.0-0.7 [facility] Comment on above: Performed By: #### C BC ####[facility] Zteujrfkmi8732[address] [place], [place] [address]Dr. Tadeo Smyth Eosinophils/100 WBC (Bld) 3.4 % Normal 0.9-7.0 [facility] Comment on above: Performed By: #### C BC ####[facility] Hhbagyazda2855[address] [place], [place] [address]Dr. Tadeo Smyth Erythrocyte distribution width (RBC) [Ratio] 13.2 % Normal 11.0-15.0 [facility] Comment on above: Performed By: #### C BC ####[facility] Ottkiuezef6713[address] [place], [place] [address]Dr. Tadeo Smyth Hematocrit (Bld) [Volume fraction] 38.3 % Normal 36.0-48.0 [facility] Comment on above: Performed By: #### C BC ####[facility] Lnnjmxpmmd5719 [place] [phone]. Tadeo Smyth Hemoglobin (Bld) [Mass/Vol] 12.0 g/dL Normal 12.0-16.0 [facility] Comment on above: Performed By: #### C BC ####[facility] Wqkcgdmxwo2300 [place] [phone]. Tadeo Smyth IG # 0.01 10e3/ul Normal 0.00-0.03 [facility] Comment on above: Performed By: #### C BC ####[facility] Busgprjvdz4667[address] [place], [place] [address]Dr. Tadeo Smyth IG % 0.2 % Normal 0.0-0.5 [facility] Comment on above: Performed By: #### C BC ####[facility] Lxmusevgnt7534[address] [place], [place] [address]Dr. Tadeo Smyth LYMPH # 1.7 103/ul Normal 1.2-3.8 [facility] Comment on above: Performed By: #### C BC ####[facility] Revdetrudy4863[address] [place], [place] [address]Dr. Tadeo Smyth Lymphocytes/100 WBC (Bld) 28.1 % Normal 20.5-60.0 [facility] Comment on above: Performed By: #### C BC ####[facility] Gcgvnjmlkj2365[address] [place], [place] [address]Dr. Tadeo Smyth MANUAL DIFF REQ NO Normal [facility] Comment on above: Performed By: #### C BC ####[facility] Bczmvghskg3234[address] [place], [place] [address]Dr. Tadeo Smyth MCH (RBC) [Entitic mass] 28.5 pg Normal 26.7-34.0 [facility] Comment on above: Performed By: #### C BC ####[facility] Jcajukzcfz0569[address] [place], [place] [address]Dr. Tadeo Smyth MCHC (RBC) [Mass/Vol] 31.3 g/dL Normal 29.9-35.2 [facility] Comment on above: Performed By: #### C BC ####[facility] Fltwrydble25[address] [place] [phone]. Tadeo Smyth MCV (RBC) [Entitic vol] 91.0 fL Normal 81.0-99.0 [facility] Comment on above: Performed By: #### C BC ####[facility] Ofyktlrhfy0137 [place] [phone]. Tadeo Smyth MONO # 0.4 103/ul Normal 0.3-0.8 [facility] Comment on above: Performed By: #### C BC ####[facility] Kpblyykvyi4704 [place] [phone]. Tadeo Smyth Monocytes/100 WBC (Bld) 7.1 % Normal 1.7-12.0 [facility] Comment on above: Performed By: #### C BC ####[facility] Pbmkqgkfzj539[address] [place], [place] [address]Dr. Tadeo Smyth NEUT # 3.6 103/ul Normal 1.4-6.5 [facility] Comment on above: Performed By: #### C BC ####[facility] Nuldfcvqga[address] [place], [place] [phone]. Tadeo Smyth Neutrophils/100 WBC (Bld) 60.7 % Normal 43.0-75.0 [facility] Comment on above: Performed By: #### C BC ####[facility] Mouzceukky16[address] [place], [place] [address]Dr. Tadeo Smyth Platelet mean volume (Bld) [Entitic vol] 8.9 fL Critically low 9.5-13.5 [facility] Comment on above: Performed By: #### C BC ####[facility] Nkylqixmtb2151 [place] [phone]. Tadeo Smyth PLT 374 103/ul Normal 150-450 [facility] Comment on above: Performed By: #### C BC ####[facility] K[address]jweqocx[address] [place], [place] [phone]. Tadeo Smyth RBC 4.21 106/ul Normal 4.20-5.40 [facility] Comment on above: Performed By: #### C BC ####[facility] Otugrqfebr119[address] [place] [address]Dr. Tadeo Smyth WBC 5.9 103/ul Normal 4.0-11.0 [facility] Comment on above: Performed By: #### C BC ####[facility] Mmgoafamfd7015[address] [place], [place] [address]Dr. Taedo Smyth CT ABD/PELV W CONon 06-06-[address] ABD/PELV W CON Normal [facility] ER URINE PROFILEon 2 Bilirubin Ql (U) Negative Normal NEGATIVE [facility] Comment on above: Performed By: #### Matthew FRANCISCO UMICRO ####[facility] Gprlifqqzp9832[address] [place], [place] [address]Dr. Tadeo Smyth Clarity (U) CLOUDY Abnormal CLEAR [facility] Comment on above: Performed By: #### Matthew FRANCISCO UMICRO ####[facility] Gtcisooulp9082[address] [place], [place] [address]Dr. Tadeo Smyth Color (U) LT. YELLOW Normal YELLOW [facility] Comment on above: Performed By: #### RANDI MERCHANTICRO ####[facility] Ieqzlvbobo8075[address] [place], [place] [address]Dr. Tadeo CAMARGOD A micrscopic examina tion will be performed if indicated. Normal [facility] Comment on above: Performed By: #### Matthew FRANCISCO UMICRO ####[facility] Npmmyoazae2957[address] [place], [place] [address]Dr. Tadeo Smyth Glucose Ql (U) Negative Normal NEGATIVE [facility] Comment on above: Performed By: #### Matthew FRANCISCO UMICRO ####[facility] Uakvmivmxq9199[address] [place], [place] [address]Dr. Tadeo Smyth Hemoglobin Ql (U) TRACE-INTACT Abnormal NEGATIVE [facility] Comment on above: Performed By: #### Matthew FRANCISCO UMICRO ####[facility] Dazujqpkpt5906[address] [place], [place] [address]Dr. Tadeo Smyth Ketones Ql (U) Negative Normal NEGATIVE [facility] Comment on above: Performed By: #### SANDRO MRECHANTRO ####[facility] Bmslsyptao036[address] [place] [address]Dr. Tadeo Smyth LEUKOCYTES SMALL Abnormal NEGATIVE [facility] Comment on above: Performed By: #### KAROL MERCHANT ####[facility] Pvvwrsvpno3474 [place] [address]Dr. Tadeo Smyth Nitrite Ql (U) Negative Normal NEGATIVE [facility] Comment on above: Performed By: #### KAROL MERCHANT ####[facility] Ogywzklsls8572 [place] [address]Dr. Tadeo Smyth pH (U) 6.0 [pH] Normal 5-9 [facility] Comment on above: Performed By: #### KAROL MERCHANT ####[facility] Wlcqkyegac6116 [place] [address]Dr. Tadeo Smyth SPEC GRAVITY 1.020 Normal 1.005-<=1.0 25 [facility] Comment on above: Performed By: #### KAROL MERCHANT ####[facility] Inacvwaxwi6416 [place] [address]Dr. Tadeo Smyth UA PROTEIN Negative Normal NEGATIVE/ TRACE [facility] Comment on above: Performed By: #### KAROL MERHCANT ####[facility] Jetfjjonsr8423[address] [place], [place] [address]Dr. Tadeo Smyth UR MICRO IND INDICATED Normal [facility] Comment on above: Performed By: #### KAROL MERCHANT ####[facility] Ddbfepkhqe5139[address] [place], [place] [address]Dr. Tadeo Smyth Urobilinogen Qn (U) 0.2 {Benito'U}/dL Normal 0.2 - 1. 0 [facility] Comment on above: Performed By: #### KAROL MERCHANT ####[facility] Ujxldawvpv56[address] [place], [place] [address]Dr. Tadeo Smyth LIPASEon 06-06-2022 Lipase [Catalytic activity/Vol] 100.0 U/L Normal 73.0-393.0 [facility] Comment on above: Performed By: #### A MY, LIPA ####[facility] Xcgrepyqbr2[address] [place] [address]Dr. Tadeo Smyth PROF 14(COMP METB)on 022 Albumin [Mass/Vol] 3.3 g/dL Critically low 3.4-5.0 [facility] Comment on above: Performed By: #### C MP ####[facility] Iminmqeeii9198 [place] [address]Dr. Tadeo Smyth Albumin/Globulin [Mass ratio] 0.9 {ratio} Normal [facility] Comment on above: Performed By: #### C MP ####[facility] Tntyoxqoyg5563[address] [place], [place] [address]Dr. Tadeo Smyth ALP [Catalytic activity/Vol] 140 U/L Critically high 46-116 [facility] Comment on above: Performed By: #### C MP ####[facility] Lvrvgbfcwd8284[address] [place], [place] [address]Dr. Tadeo Smyth ALT [Catalytic activity/Vol] 23 U/L Normal 14-59 [facility] Comment on above: Performed By: #### C MP ####[facility] Tmgibdclwe6149[address] [place], [place] [address]Dr. Tadeo Smyth Anion gap [Moles/Vol] 11.6 mmol/L Normal [facility] Comment on above: Performed By: #### C MP ####[facility] Zdzayeiuzd[address] [place], [place] [address]Dr. Tadeo Smyth AST [Catalytic activity/Vol] 18 U/L Normal 15-37 [facility] Comment on above: Performed By: #### C MP ####[facility] Wuvzdnvhxe8146[address] [place], [place] [address]Dr. Tadeo Smyth Bilirubin [Mass/Vol] 0.2 mg/dL Normal 0.2-1.0 [facility] Comment on above: Performed By: #### C MP ####[facility] Whthjcuyxw4739[address] [place], [place] [address]Dr. Taedo Smyth Calcium [Mass/Vol] 8.8 mg/dL Normal 8.5-10.1 [facility] Comment on above: Performed By: #### C MP ####[facility] Giruldknrk[address] [place] [address]Dr. Tadeo Smyth Chloride [Moles/Vol] 109 mmol/L Critically high 98-107 [facility] Comment on above: Performed By: #### C MP ####[facility] [facility] [address] [place] [address]Dr. Tadeo Smyth CO2 [Moles/Vol] 26.3 mmol/L Normal 21.0-32.0 [facility] Comment on above: Performed By: #### C MP ####[facility] Lvtwfamxqt[address] [place] [address]Dr. Tadeo Smyth Creatinine [Mass/Vol] 0.81 mg/dL Normal 0.55-1.02 [facility] Comment on above: Performed By: #### C MP ####[facility] Oytcswrybt78[address] [place], [place] [address]Dr. Tadeo Smyth EGFR-AF CROATIAN >60 Normal >=60 [facility] Comment on above: Performed By: #### C MP ####[facility] Qkcbdoiaiv0869[address] [place], [place] [address]Dr. Tadeo Smyth EGFR-NON AF CROATIAN >60 Normal >=60 [facility] Comment on above: Performed By: #### C MP ####[facility] Fbzljzyser3165[address] [place], [place] [address]Dr. Tadeo Smyth Globulin (S) [Mass/Vol] 3.7 g/dL Normal [facility] Comment on above: Performed By: #### C MP ####[facility] Uelihawzan213[address] [place], [place] [address]Dr. Tadeo Smyth Glucose [Mass/Vol] 90 mg/dL Normal 74-106 [facility] Comment on above: Performed By: #### C MP ####[facility] Evzlpdofkm8212[address] [place], [place] [address]Dr. Tadeo Smyth Potassium [Moles/Vol] 3.9 mmol/L Normal 3.5-5.1 [facility] Comment on above: Performed By: #### C MP ####[facility] Iaxcvkfopg[address] [place], [place] [id number]. Tadeo Smyth Protein [Mass/Vol] 7.0 g/dL Normal 6.4-8.2 [facility] Comment on above: Performed By: #### C MP ####[facility] Vgmfkiludj40[address] [place] [address]Dr. Margotnicole Smyth Sodium [Moles/Vol] 143 mmol/L Normal 136-145 [facility] Comment on above: Performed By: #### C MP ####[facility] Vnawfnzmtm9[address] [place] [address]Dr. Tadeo Smyth Urea nitrogen [Mass/Vol] 12.0 mg/dL Normal 7.0-18.0 [facility] Comment on above: Performed By: #### C MP ####[facility] Xhtjlyrjjt4017[address] [place], [place] [address]Dr. Tadeo Smyth Urea nitrogen/Creatinine [Mass ratio] 14.8 mg/mg Normal [facility] Comment on above: Performed By: #### C MP ####[facility] Csjllocuxv5227[address] [place], [place] [address]Dr. Tadeo Smyth URINE MICROSCOPIC ONLYon BACTERIA LARGE Abnormal NONE SEEN [facility] Comment on above: Performed By: #### KAROL MERCHANT ####[facility] Cxrnzkuxqu813718 [address] [place], [place] [address]Dr. Tadeo Smyth Bacteria identified Cx Nom (U) INDICATED Normal [facility] Comment on above: Performed By: #### SANDRO MERCHANTRO ####[facility] Ssferbtfdx795[address] [place], [place] [address]Dr. Tadeo Smyht CAST NONE SEEN Normal NONE SEEN [facility] Comment on above: Performed By: #### SANDRO MERCHANTRO ####[facility] Wjcxiotfqc033[address] [place], [place] [address]Dr. Tadeo Smyth Crystals LM Nom (Urine sed) NONE SEEN Normal NONE SEEN [facility] Comment on above: Performed By: #### SANDRO MERCHANTRO ####[facility] Ocufoipcok5826[address] [place], [place] [address]Dr. Tadeo Smyth Epithelial cells LM Ql (Urine sed) RARE Normal NONE SEEN /RARE [facility] Comment on above: Performed By: #### RANDI MERCHANTICRO ####[facility] [address]pibktmdje[address] [place] [address]Dr. Tadeo Smyth MUCOUS TRACE Abnormal NONE SEEN [facility] Comment on above: Performed By: #### Matthew FRANCISCO UMICRO ####[facility] Vrxprybivp6775[address] [place], [place] [address]Dr. Margotnicole Haja RBC 0-2 Normal 0-2 [facility] Comment on above: Performed By: #### Matthew FRANCISCO UMICRO ####[facility] Wdqwlegdta722318 [address] [place], [place] [address]Dr. Tadeo Haja WBC 2-5 Abnormal NONE SEEN [facility] Comment on above: Performed By: #### SANDRO MERCHANTRO ####[facility] Xwdaybdnqq112[address] [place], [place] [address]Dr. Tadeo Haja AMYLASEon 06-04-2022 Amylase [Catalytic activity/Vol] 61 U/L Normal 25-115 [facility] Comment on above: Performed By: #### A MY, CMP, LIPA ####[facility] Dksrukfcke0986[address] [place], [place] [address]Dr. Tadeo Haja CBC AUTO DIFFon 06-04-2022 BASO # 0.0 103/ul Normal 0.0-0.1 [facility] Comment on above: Performed By: #### C BC ####[facility] Cwvrverbjc5572[address] [place], [place] [address]Dr. Margotnicole Smyth Basophils/100 WBC (Bld) 0.5 % Normal 0.2-2.0 [facility] Comment on above: Performed By: #### C BC ####[facility] Ihbdnvyzsw232[address] [place], [place] [address]Dr. Tadeo Smyth EO # 0.3 103/ul Normal 0.0-0.7 [facility] Comment on above: Performed By: #### C BC ####[facility] Xevanmwoil4207[address] [place], [place] [address]Dr. Tadeo Smyth Eosinophils/100 WBC (Bld) 4.7 % Normal 0.9-7.0 [facility] Comment on above: Performed By: #### C BC ####[facility] Gzivlorggq8675[address] [place], [place] [address]Dr. Tadeo Smyth Erythrocyte distribution width (RBC) [Ratio] 13.2 % Normal 11.0-15.0 [facility] Comment on above: Performed By: #### C BC ####[facility] Argsnfutde0218[address] [place], [place] [address]Dr. Tadeo Smyth Hematocrit (Bld) [Volume fraction] 36.9 % Normal 36.0-48.0 [facility] Comment on above: Performed By: #### C BC ####[facility] Ozenepqpqo2954[address] [place], [place] [address]Dr. Tadeo Smyth Hemoglobin (Bld) [Mass/Vol] 11.9 g/dL Critically low 12.0-16.0 [facility] Comment on above: Performed By: #### C BC ####[facility] Ureioxeeal1469[address] [place], [place] [address]Dr. Tadeo Smyth IG # 0.01 10e3/ul Normal 0.00-0.03 [facility] Comment on above: Performed By: #### C BC ####[facility] Znxvczpeud709918 [address] [place], [place] [address]Dr. Tadeo Smyth IG % 0.2 % Normal 0.0-0.5 [facility] Comment on above: Performed By: #### C BC ####[facility] Aispqhjzif464[address] [place], [place] [address]Dr. Tadeo Smyth LYMPH # 2.3 103/ul Normal 1.2-3.8 [facility] Comment on above: Performed By: #### C BC ####[facility] Rskpihdswj584[address] [place], [place] [address]Dr. Tadeo Smyth Lymphocytes/100 WBC (Bld) 37.3 % Normal 20.5-60.0 [facility] Comment on above: Performed By: #### C BC ####[facility] Cskfhvpqqp8543[address] [place], [place] [address]Dr. Tadeo Smyth MANUAL DIFF REQ NO Normal [facility] Comment on above: Performed By: #### C BC ####[facility] Owvuvfqoqg[address] [place] [address]Dr. Tadeo Smyth MCH (RBC) [Entitic mass] 29.0 pg Normal 26.7-34.0 [facility] Comment on above: Performed By: #### C BC ####[facility] Uhvcawsech978[address] [place], [place] [address]Dr. Tadeo Smyth MCHC (RBC) [Mass/Vol] 32.2 g/dL Normal 29.9-35.2 [facility] Comment on above: Performed By: #### C BC ####[facility] Qldrctdysr3457[address] [place], [place] [address]Dr. Tadeo Smyth MCV (RBC) [Entitic vol] 90.0 fL Normal 81.0-99.0 [facility] Comment on above: Performed By: #### C BC ####[facility] Jfsurnrknm4984[address] [place], [place] [address]Dr. Tadeo Smyth MONO # 0.4 103/ul Normal 0.3-0.8 [facility] Comment on above: Performed By: #### C BC ####[facility] Njurlentvf909718 [address] [place], [place] [address]Dr. Tadeo Smyth Monocytes/100 WBC (Bld) 6.8 % Normal 1.7-12.0 [facility] Comment on above: Performed By: #### C BC ####[facility] Qggekssvoj2718[address] [place], [place] [address]DrNeo Smyth NEUT # 3.2 103/ul Normal 1.4-6.5 [facility] Comment on above: Performed By: #### C BC ####[facility] Cjvisrwejs2085[address] [place], [place] [address]DrNeo Smyth Neutrophils/100 WBC (Bld) 50.5 % Normal 43.0-75.0 [facility] Comment on above: Performed By: #### C BC ####[facility] Afgcxbogls665018 [address] [place], [place] [address]Dr. Tadeo Smyth Platelet mean volume (Bld) [Entitic vol] 8.9 fL Critically low 9.5-13.5 [facility] Comment on above: Performed By: #### C BC ####[facility] [address]tqtblfg[address] [place] [address]Dr. Tadeo Smyth PLT 387 103/ul Normal 150-450 [facility] Comment on above: Performed By: #### C BC ####[facility] Jauhgulvhc48[address] [place] [address]Dr. Margotnicole Haja RBC 4.10 106/ul Critically low 4.20-5.40 [facility] Comment on above: Performed By: #### C BC ####[facility] H[address]zwzjjlv[address] [place] [address]Dr. Tadeo Smyth WBC 6.2 103/ul Normal 4.0-11.0 [facility] Comment on above: Performed By: #### C BC ####[facility] Xwtzetxtlq3922[address] [place], [place] [address]Dr. Tadeo Smyth CT ABD/PELV W CONon 06-04-[address] ABD/PELV W CON Normal [facility] ER URINE PROFILEon 2 Bilirubin Ql (U) Negative Normal NEGATIVE [facility] Comment on above: Performed By: #### KAROL MERCHANT ####[facility] Qgyblmintp5299[address] [place], [place] [address]Dr. Tadeo Smyth Clarity (U) CLEAR Normal CLEAR [facility] Comment on above: Performed By: #### KAROL MERCHANT ####[facility] [address]vxyfbicha[address] [place] [address]Dr. Tadeo Smyth Color (U) LT. YELLOW Normal YELLOW [facility] Comment on above: Performed By: #### KAROL MERCHANT ####[facility] Mcuqzwifqy8795[address] [place], [place] [address]Dr. Tadeo Smyth ERUAHD A micrscopic examina tion will be performed if indicated. Normal [facility] Comment on above: Performed By: #### KAROL MERCHANT ####[facility] Qbdyiouhnp2014[address] [place], [place] [id number]. Tadeo Smyth Glucose Ql (U) Negative Normal NEGATIVE [facility] Comment on above: Performed By: #### SANDRO MERCHANTRO ####[facility] Rxfmgdadny6458[address] [place], [place] [address]Dr. Tadeo Smyth Hemoglobin Ql (U) TRACE-INTACT Abnormal NEGATIVE [facility] Comment on above: Performed By: #### SANDRO MERCHANTRO ####[facility] Socwdhyuzl5029[address] [place], [place] [address]Dr. Tadeo Smyth Ketones Ql (U) Negative Normal NEGATIVE [facility] Comment on above: Performed By: #### SANDRO MERCHANTRO ####[facility] Tjmqlfywqr3174[address] [place], [place] [address]Dr. Tadeo Smyth LEUKOCYTES Negative Normal NEGATIVE [facility] Comment on above: Performed By: #### SANDRO MERCHANTRO ####[facility] Ucvukkizkm5686[address] [place], [place] [address]Dr. Tadeo Symth Nitrite Ql (U) Negative Normal NEGATIVE [facility] Comment on above: Performed By: #### SANDRO MERCHANTRO ####[facility] Padgpundcx2435[address] [place], [place] [address]Dr. Tadeo Haja pH (U) 6.5 [pH] Normal 5-9 [facility] Comment on above: Performed By: #### SANDRO MERCHANTRO ####[facility] Xdqygzzluo987[address] [place], [place] [address]Dr. Tadeo Smyth SPEC GRAVITY 1.015 Normal 1.005-<=1.0 25 [facility] Comment on above: Performed By: #### SANDRO MERCHANTRO ####[facility] Bvdpbojtwj2048[address] [place], [place] [address]Dr. Tadeo Smyth UA PROTEIN Negative Normal NEGATIVE/ TRACE [facility] Comment on above: Performed By: #### SANDRO MERCHANTRO ####[facility] Arwgzfygjm0914[address] [place], [place] [address]Dr. Tadeo Smyth UR MICRO IND INDICATED Normal [facility] Comment on above: Performed By: #### KAROL MERCHANT ####[facility] Xunyfzppyr[address] [place] [address]Dr. Tadeo Smyth Urobilinogen Qn (U) 0.2 {Benito'U}/dL Normal 0.2 - 1. 0 [facility] Comment on above: Performed By: #### KAROL MERCHANT ####[facility] Rlutudlrqu[address] [place] [address]Dr. Margotnicole Smyth LIPASEon 06-04-2022 Lipase [Catalytic activity/Vol] 81.0 U/L Normal 73.0-393.0 [facility] Comment on above: Performed By: #### A MY, CMP, LIPA ####[facility] Fkrbjzvayd056[address] [place], [place] [address]Dr. Margotnicole Smyth PROF 14(COMP METB)on 022 Albumin [Mass/Vol] 3.6 g/dL Normal 3.4-5.0 [facility] Comment on above: Performed By: #### A MY, CMP, LIPA ####[facility] Scwattqftv[address] [place] [address]Dr. Margotnicole Smyth Albumin/Globulin [Mass ratio] 1.0 {ratio} Normal [facility] Comment on above: Performed By: #### A MY, CMP, LIPA ####[facility] Btdmgnwqtj28[address] [place] [address]Dr. Margtonicole Smyth ALP [Catalytic activity/Vol] 150 U/L Critically high 46-116 [facility] Comment on above: Performed By: #### A MY, CMP, LIPA ####[facility] Fatxrxzbar5[address] [place] [address]Dr. Tadeo Smyth ALT [Catalytic activity/Vol] 23 U/L Normal 14-59 [facility] Comment on above: Performed By: #### A MY, CMP, LIPA ####[facility] Vkjwftpbew9[address] [place] [address]Dr. Tadeo Smyth Anion gap [Moles/Vol] 13.2 mmol/L Normal [facility] Comment on above: Performed By: #### A MY, CMP, LIPA ####[facility] Ebgwwzxzth7[address] [place] [address]Dr. Tadeo Smyth AST [Catalytic activity/Vol] 12 U/L Critically low 15-37 [facility] Comment on above: Performed By: #### A MY, CMP, LIPA ####[facility] Hrrbofkjmk24[address] [place] [address]Dr. Tadeo Smyth Bilirubin [Mass/Vol] 0.1 mg/dL Critically low 0.2-1.0 [facility] Comment on above: Performed By: #### A MY, CMP, LIPA ####[facility] Puetinyysz2434[address] [place], [place] [address]Dr. Tadeo Smyth Calcium [Mass/Vol] 9.0 mg/dL Normal 8.5-10.1 [facility] Comment on above: Performed By: #### A MY, CMP, LIPA ####[facility] Fpebeldaps677[address] [place], [place] [address]Dr. Tadeo Smyth Chloride [Moles/Vol] 104 mmol/L Normal 98-107 [facility] Comment on above: Performed By: #### A MY, CMP, LIPA ####[facility] Lzwcltnfqs0389[address] [place], [place] [address]Dr. Tadeo Smyth CO2 [Moles/Vol] 26.6 mmol/L Normal 21.0-32.0 [facility] Comment on above: Performed By: #### A MY, CMP, LIPA ####[facility] Qadgnmemqt306[address] [place], [place] [address]Dr. Tadeo Smyth Creatinine [Mass/Vol] 0.97 mg/dL Normal 0.55-1.02 [facility] Comment on above: Performed By: #### A MY, CMP, LIPA ####[facility] Ntdqewuohb88[address] [place], [place] [address]Dr. Tadeo Smyth EGFR-AF CROATIAN >60 Normal >=60 [facility] Comment on above: Performed By: #### A MY, CMP, LIPA ####[facility] Hbugbeempu0523[address] [place], [place] [address]Dr. Tadeo Smyth EGFR-NON AF CROATIAN 60 mL/min/1.73m2 Normal >=60 [facility] Comment on above: Performed By: #### A MY, CMP, LIPA ####[facility] Vxrbbcdaoi77[address] [place] [address]Dr. Tadeo Smyth Globulin (S) [Mass/Vol] 3.7 g/dL Normal [facility] Comment on above: Performed By: #### A MY, CMP, LIPA ####[facility] Egoirmwgum72[address] [place] [address]Dr. Tadeo Smyth Glucose [Mass/Vol] 109 mg/dL Critically high 74-106 [facility] Comment on above: Performed By: #### A MY, CMP, LIPA ####[facility] Jdxaqnhwsd97[address] [place] [address]Dr. Tadeo Smyth Potassium [Moles/Vol] 3.8 mmol/L Normal 3.5-5.1 [facility] Comment on above: Performed By: #### A MY, CMP, LIPA ####[facility] Dimbubdkqb24[address] [place] [address]Dr. Tadeo Smyth Protein [Mass/Vol] 7.3 g/dL Normal 6.4-8.2 [facility] Comment on above: Performed By: #### A MY, CMP, LIPA ####[facility] Crkpwnmlyh4[address] [place] [address]Dr. Tadeo Smyth Sodium [Moles/Vol] 140 mmol/L Normal 136-145 [facility] Comment on above: Performed By: #### A MY, CMP, LIPA ####[facility] Tkjbodtqju39[address] [place] [address]Dr. Tadeo Smyth Urea nitrogen [Mass/Vol] 21.0 mg/dL Critically high 7.0-18.0 [facility] Comment on above: Performed By: #### A MY, CMP, LIPA ####[facility] Upiqzppidb01[address] [place] [address]Dr. Tadeo Smyth Urea nitrogen/Creatinine [Mass ratio] 21.6 mg/mg Normal [facility] Comment on above: Performed By: #### A MY, CMP, LIPA ####[facility] Trkshchvsa[address] [place] [address]Dr. Tadeo Smyth URINE MICROSCOPIC ONLYon BACTERIA NONE SEEN Normal NONE SEEN [facility] Comment on above: Performed By: #### Matthew FRANCISCO UMICRO ####[facility] Qeyggurplq60[address] [place] [address]Dr. Tadeo Smyth Bacteria identified Cx Nom (U) NOT INDICATED Normal [facility] Comment on above: Performed By: #### Matthew FRANCISCO UMICRO ####[facility] Jgpnuesgsg80[address] [place] [address]Dr. Tadeo Smyth CAST NONE SEEN Normal NONE SEEN [facility] Comment on above: Performed By: #### RANDI MERCHANTICRO ####[facility] Zbyteunfdb8266[address] [place], [place] [address]Dr. Tadeo Smyth Crystals LM Nom (Urine sed) NONE SEEN Normal NONE SEEN [facility] Comment on above: Performed By: #### RANDI MERCHANTICRO ####[facility] Qahifsugdm2553[address] [place], [place] [address]Dr. Tadeo Smyth Epithelial cells LM Ql (Urine sed) FEW Abnormal NONE SEEN /RARE [facility] Comment on above: Performed By: #### Matthew FRANCISCO UMICRO ####[facility] Cgszheopom068[address] [place], [place] [address]Dr. Tadeo Smyth MUCOUS NONE SEEN Normal NONE SEEN [facility] Comment on above: Performed By: #### SANDRO MERCHANTRO ####[facility] Fgpcpbxxvl575[address] [place], [place] [address]Dr. Tadeo Smyth RBC 0-2 Normal 0-2 [facility] Comment on above: Performed By: #### Matthew FRANCISCO UMICRO ####[facility] Rajrgqclvx6823[address] [place], [place] [address]Dr. Tadeo Smyth WBC NONE SEEN Normal NONE SEEN [facility] Comment on above: Performed By: #### Matthew FRANCISCO UMICRO ####[facility] Romvddrpxn9384[address] [place], [place] [address]Dr. Tadeo Smyth MICRO OTHER TESTSOrdered By: Guillermo Rocha on 04-29-2022 Fecal WBC Lactoferrin Negative (04/29/22 8:00 AM) Normal Negative [facility] Man Sero CULTURE URINEon 03-31-2022 CULTURE URINE Normal [facility] Comment on above: Performed By: #### U RCX ####[facility] Ibnqtflunv6[address] [place] [address]Dr. Tadeo Haja CBC AUTO DIFFon 03-30-2022 BASO # 0.0 103/ul Normal 0.0-0.1 [facility] Comment on above: Performed By: #### C BC ####[facility] Prxrdbtuoh6685[address] [place], [place] [address]Dr. Tadeo Smyth Basophils/100 WBC (Bld) 0.4 % Normal 0.2-2.0 [facility] Comment on above: Performed By: #### C BC ####[facility] Tsxukqlfdi787[address] [place], [place] [address]Dr. Tadeo Smyth EO # 0.3 103/ul Normal 0.0-0.7 [facility] Comment on above: Performed By: #### C BC ####[facility] Duptsecwgr2765[address] [place], [place] [address]Dr. Margotnicole Smyth Eosinophils/100 WBC (Bld) 5.1 % Normal 0.9-7.0 [facility] Comment on above: Performed By: #### C BC ####[facility] Eydosoiooi7374[address] [place], [place] [address]Dr. Tadeo Haja Erythrocyte distribution width (RBC) [Ratio] 12.8 % Normal 11.0-15.0 [facility] Comment on above: Performed By: #### C BC ####[facility] Krgeboxxok4588[address] [place], [place] [address]Dr. Margotnicole Smyth Hematocrit (Bld) [Volume fraction] 36.4 % Normal 36.0-48.0 [facility] Comment on above: Performed By: #### C BC ####[facility] Kgcljbovzt4216[address] [place], [place] [address]Dr. Tadeo Haja Hemoglobin (Bld) [Mass/Vol] 12.0 g/dL Normal 12.0-16.0 [facility] Comment on above: Performed By: #### C BC ####[facility] Suojnmewfc22[address] [place] [address]DrNeo Smyth IG # 0.02 10e3/ul Normal 0.00-0.03 [facility] Comment on above: Performed By: #### C BC ####[facility] Byubvlgtyx7226 [place] [address]DrNeo Smyth IG % 0.4 % Normal 0.0-0.5 [facility] Comment on above: Performed By: #### C BC ####[facility] Cbkbyaijhv2499[address] [place], [place] [address]DrNeo Smyth LYMPH # 1.4 103/ul Normal 1.2-3.8 [facility] Comment on above: Performed By: #### C BC ####[facility] Pwfpiwcbzr6023[address] [place], [place] [address]DrNeo Smyth Lymphocytes/100 WBC (Bld) 25.5 % Normal 20.5-60.0 [facility] Comment on above: Performed By: #### C BC ####[facility] Jagioxubsl2583[address] [place], [place] [address]DrNeo Smyth MANUAL DIFF REQ NO Normal [facility] Comment on above: Performed By: #### C BC ####[facility] Efyesipqil1556[address] [place], [place] [address]DrNeo Smyth MCH (RBC) [Entitic mass] 29.1 pg Normal 26.7-34.0 [facility] Comment on above: Performed By: #### C BC ####[facility] Jqfrfwhozs554[address] [place], [place] [address]DrNeo Smyth MCHC (RBC) [Mass/Vol] 33.0 g/dL Normal 29.9-35.2 [facility] Comment on above: Performed By: #### C BC ####[facility] Qtwebofima3432 [place] [address]DrNeo Smyth MCV (RBC) [Entitic vol] 88.3 fL Normal 81.0-99.0 [facility] Comment on above: Performed By: #### C BC ####[facility] Xvcxzfsnww01[address] [place] [id number]. Tadeo Smyth MONO # 0.4 103/ul Normal 0.3-0.8 [facility] Comment on above: Performed By: #### C BC ####[facility] Ebfhpfinry3[address] [place] [id number]. Tadeo Smyth Monocytes/100 WBC (Bld) 7.1 % Normal 1.7-12.0 [facility] Comment on above: Performed By: #### C BC ####[facility] Hlbabkzuth360[address] [place] [address]Dr. Tadeo Smyth NEUT # 3.4 103/ul Normal 1.4-6.5 [facility] Comment on above: Performed By: #### C BC ####[facility] Wrfhibkxzy123[address] [place], [place] [address]Dr. Tadeo Smyth Neutrophils/100 WBC (Bld) 61.5 % Normal 43.0-75.0 [facility] Comment on above: Performed By: #### C BC ####[facility] [facility] [address] [place] [address]Dr. Tadeo Smyth Platelet mean volume (Bld) [Entitic vol] 8.8 fL Critically low 9.5-13.5 [facility] Comment on above: Performed By: #### C BC ####[facility] Jvlpdbckyd40[address] [place] [address]Dr. Tadeo Smyth PLT 324 103/ul Normal 150-450 [facility] Comment on above: Performed By: #### C BC ####[facility] Nkjuftsbsw2026 [place] [phone]. Tadeo Smyth RBC 4.12 106/ul Critically low 4.20-5.40 [facility] Comment on above: Performed By: #### C BC ####[facility] Wujkirwayv4168 [place] [phone]. Tadeo Smyth WBC 5.5 103/ul Normal 4.0-11.0 [facility] Comment on above: Performed By: #### C BC ####[facility] Eeugzvfueq[address] [place] [address]Dr. Tadeo Smyth PROF 14(COMP METB)on 022 Albumin [Mass/Vol] 3.1 g/dL Critically low 3.4-5.0 [facility] Comment on above: Performed By: #### C MP ####[facility] Keimfhcwtu[address] [place] [address]Dr. Tadeo Smyth Albumin/Globulin [Mass ratio] 0.9 {ratio} Normal [facility] Comment on above: Performed By: #### C MP ####[facility] Szrkmbhgpn9[address] [place], [place] [address]Dr. Tadeo Smyth ALP [Catalytic activity/Vol] 119 U/L Critically high 46-116 [facility] Comment on above: Performed By: #### C MP ####[facility] Jguvhqvfec34[address] [place], [place] [address]Dr. Tadeo Smyth ALT [Catalytic activity/Vol] 17 U/L Normal 14-59 [facility] Comment on above: Performed By: #### C MP ####[facility] Vpdnqanfdr4[address] [place], [place] [address]Dr. Tadeo Smyth Anion gap [Moles/Vol] 12.0 mmol/L Normal [facility] Comment on above: Performed By: #### C MP ####[facility] Auaqihnpof66[address] [place], [place] [address]Dr. Tadeo Smyth AST [Catalytic activity/Vol] 16 U/L Normal 15-37 [facility] Comment on above: Performed By: #### C MP ####[facility] Fnwrjxioej3423[address] [place], [place] [address]Dr. Tadeo Smyth Bilirubin [Mass/Vol] 0.4 mg/dL Normal 0.2-1.0 [facility] Comment on above: Performed By: #### C MP ####[facility] Vnjnieqrbt5104[address] [place], [place] [address]Dr. Tadeo Smyth Calcium [Mass/Vol] 8.9 mg/dL Normal 8.5-10.1 [facility] Comment on above: Performed By: #### C MP ####[facility] Tboccrtxyg10[address] [place] [address]Dr. Tadeo Smyth Chloride [Moles/Vol] 107 mmol/L Normal 98-107 [facility] Comment on above: Performed By: #### C MP ####[facility] Kzlwitosjw14[address] [place] [address]Dr. Tadeo Smyth CO2 [Moles/Vol] 26.9 mmol/L Normal 21.0-32.0 [facility] Comment on above: Performed By: #### C MP ####[facility] Lgihwryzpu036[address] [place] [address]Dr. Tadeo Smyth Creatinine [Mass/Vol] 0.82 mg/dL Normal 0.55-1.02 [facility] Comment on above: Performed By: #### C MP ####[facility] Awgrpwwvdm8000 [place] [address]Dr. Tadeo Smyth EGFR-AF CROATIAN >60 Normal >=60 [facility] Comment on above: Performed By: #### C MP ####[facility] Yrefjvshqi9136 [place] [address]Dr. Tadeo Smyth EGFR-NON AF CROATIAN >60 Normal >=60 [facility] Comment on above: Performed By: #### C MP ####[facility] Jmcncdbuys4[address] [place] [address]Dr. Tadeo Smyth Globulin (S) [Mass/Vol] 3.5 g/dL Normal [facility] Comment on above: Performed By: #### C MP ####[facility] Mzvbyfeype0996 [place] [address]Dr. Tadeo Smyth Glucose [Mass/Vol] 104 mg/dL Normal 74-106 [facility] Comment on above: Performed By: #### C MP ####[facility] Oujpspnpwc8109[address] [place], [place] [address]Dr. Tadeo Smyth Potassium [Moles/Vol] 3.9 mmol/L Normal 3.5-5.1 [facility] Comment on above: Performed By: #### C MP ####[facility] Rjikuftenl4512 [place] [phone]. Tadeo Smyth Protein [Mass/Vol] 6.6 g/dL Normal 6.4-8.2 [facility] Comment on above: Performed By: #### C MP ####[facility] Ngkudhtplv7141 [place] [phone]. Tadeo Smyth Sodium [Moles/Vol] 142 mmol/L Normal 136-145 [facility] Comment on above: Performed By: #### C MP ####[facility] Mnaovaxgkv7377 [place] [address]Dr. Tadeo Smyth Urea nitrogen [Mass/Vol] 5.0 mg/dL Critically low 7.0-18.0 [facility] Comment on above: Performed By: #### C MP ####[facility] Ujgqbunmky6806[address] [place], [place] [address]Dr. Tadeo Smyth Urea nitrogen/Creatinine [Mass ratio] 6.1 mg/mg Normal [facility] Comment on above: Performed By: #### C MP ####[facility] Buyhqhioxb299[address] [place], [place] [address]Dr. Tadeo Smyth CBC AUTO DIFFon 03-29-2022 BASO # 0.0 103/ul Normal 0.0-0.1 [facility] Comment on above: Performed By: #### C BC ####[facility] Nfmkegwcum7[address] [place] [address]Dr. Tadeo Smyth Basophils/100 WBC (Bld) 0.4 % Normal 0.2-2.0 [facility] Comment on above: Performed By: #### C BC ####[facility] Ckudxspnyz212[address] [place], [place] [address]Dr. Tadeo Smyth EO # 0.2 103/ul Normal 0.0-0.7 [facility] Comment on above: Performed By: #### C BC ####[facility] Invwwqmyhg4908[address] [place], [place] [address]Dr. Tadeo Smyth Eosinophils/100 WBC (Bld) 4.3 % Normal 0.9-7.0 [facility] Comment on above: Performed By: #### C BC ####[facility] Xswfsbcjog4619 [place] [address]Dr. Tadeo Smyth Erythrocyte distribution width (RBC) [Ratio] 12.9 % Normal 11.0-15.0 [facility] Comment on above: Performed By: #### C BC ####[facility] Vekbvzifoa8139 [place] [address]Dr. Tadeo Smyth Hematocrit (Bld) [Volume fraction] 33.8 % Critically low 36.0-48.0 [facility] Comment on above: Performed By: #### C BC ####[facility] Qinsxljfta0474[address] [place], [place] [address]Dr. Tadeo Smyth Hemoglobin (Bld) [Mass/Vol] 11.1 g/dL Critically low 12.0-16.0 [facility] Comment on above: Performed By: #### C BC ####[facility] Cserkajwga59[address] [place], [place] [address]Dr. Tadeo Smyth IG # 0.01 10e3/ul Normal 0.00-0.03 [facility] Comment on above: Performed By: #### C BC ####[facility] Ojsczsihul5168[address] [place], [place] [address]Dr. Tadeo Smyth IG % 0.2 % Normal 0.0-0.5 [facility] Comment on above: Performed By: #### C BC ####[facility] Flihtmmckw7337[address] [place], [place] [address]Dr. Tadeo Smyth LYMPH # 1.5 103/ul Normal 1.2-3.8 [facility] Comment on above: Performed By: #### C BC ####[facility] Fqxmlezpyl4067[address] [place], [place] [address]Dr. Tadeo Smyth Lymphocytes/100 WBC (Bld) 29.9 % Normal 20.5-60.0 [facility] Comment on above: Performed By: #### C BC ####[facility] Vlnneqmtsl2274[address] [place], [place] [address]Dr. Tadeo Smyth MANUAL DIFF REQ NO Normal [facility] Comment on above: Performed By: #### C BC ####[facility] Diagwzygzj9005 [place] [phone]. Tadeo Smyth MCH (RBC) [Entitic mass] 29.3 pg Normal 26.7-34.0 [facility] Comment on above: Performed By: #### C BC ####[facility] Arogvqkyhy2623 [place] [phone]. Tadeo Smyth MCHC (RBC) [Mass/Vol] 32.8 g/dL Normal 29.9-35.2 [facility] Comment on above: Performed By: #### C BC ####[facility] Xvjvwwudrs8838 [place] [phone]. Tadeo Smyth MCV (RBC) [Entitic vol] 89.2 fL Normal 81.0-99.0 [facility] Comment on above: Performed By: #### C BC ####[facility] Zuypxxoznt030[address] [place], [place] [address]Dr. Tdaeo Smyth MONO # 0.4 103/ul Normal 0.3-0.8 [facility] Comment on above: Performed By: #### C BC ####[facility] Xgbkqbyxgc8593 [place] [address]Dr. Margotnicole Smyth Monocytes/100 WBC (Bld) 7.8 % Normal 1.7-12.0 [facility] Comment on above: Performed By: #### C BC ####[facility] Sruywhbgln8[address] [place], [place] [address]Dr. Tadeo Smyth NEUT # 2.8 103/ul Normal 1.4-6.5 [facility] Comment on above: Performed By: #### C BC ####[facility] Oryndsajtf[address] [place], [place] [phone]. Margotnicole Smyth Neutrophils/100 WBC (Bld) 57.4 % Normal 43.0-75.0 [facility] Comment on above: Performed By: #### C BC ####[facility] Iodypyoozu8726[address] [place], [place] [address]Dr. Tadeo Haja Platelet mean volume (Bld) [Entitic vol] 8.9 fL Critically low 9.5-13.5 [facility] Comment on above: Performed By: #### C BC ####[facility] Zvrtiqcudo2812 [place] [phone]. Tadeo Smyth PLT 314 103/ul Normal 150-450 [facility] Comment on above: Performed By: #### C BC ####[facility] Nyxjsjybyx2654 [place] [phone]. Tadeo Smyth RBC 3.79 106/ul Critically low 4.20-5.40 [facility] Comment on above: Performed By: #### C BC ####[facility] Utfqbfzgbf5013 [place] [phone]. Tadeo Smyth WBC 4.9 103/ul Normal 4.0-11.0 [facility] Comment on above: Performed By: #### C BC ####[facility] Epzsrfbczx7936 [place] [address]Dr. Margotnicole Smyth PROF 14(COMP METB)on 022 Albumin [Mass/Vol] 2.8 g/dL Critically low 3.4-5.0 [facility] Comment on above: Performed By: #### C MP ####[facility] Xrljmexweu0603 [place] [phone]. Tadeo Smyth Albumin/Globulin [Mass ratio] 0.8 {ratio} [facility] Comment on above: Performed By: #### C MP ####[facility] Cofkeqieua4127 [place] [phone]. Tadeo Haja ALP [Catalytic activity/Vol] 117 U/L Critically high 46-116 [facility] Comment on above: Performed By: #### C MP ####[facility] Inoxdjbprp1978 [place] [phone]. Tadeo Haja ALT [Catalytic activity/Vol] 13 U/L Critically low 14-59 [facility] Comment on above: Performed By: #### C MP ####[facility] Tdbutotpnq1539 [place] [phone]. Tadeo Haja Anion gap [Moles/Vol] 8.7 mmol/L Normal [facility] Comment on above: Performed By: #### C MP ####[facility] Mspcrgqrxp2698 [place] [phone]. Tadeo Smyth AST [Catalytic activity/Vol] 12 U/L Critically low 15-37 [facility] Comment on above: Performed By: #### C MP ####[facility] Fbrmjcfdxn4844 [place] [phone]. Tadeo Smyth Bilirubin [Mass/Vol] 0.4 mg/dL Normal 0.2-1.0 [facility] Comment on above: Performed By: #### C MP ####[facility] Mpgfefcoar350[address] [place], [place] [address]Dr. Tadeo Smyth Calcium [Mass/Vol] 8.5 mg/dL Normal 8.5-10.1 [facility] Comment on above: Performed By: #### C MP ####[facility] Qapkkjajmx1694[address] [place], [place] [address]Dr. Tadeo Smyth Chloride [Moles/Vol] 108 mmol/L Critically high 98-107 [facility] Comment on above: Performed By: #### C MP ####[facility] Kgqcfjilxp19[address] [place], [place] [address]Dr. Tadeo Smyth CO2 [Moles/Vol] 28.0 mmol/L Normal 21.0-32.0 [facility] Comment on above: Performed By: #### C MP ####[facility] Lzcxdkbxvp9532[address] [place], [place] [address]Dr. Tadeo Smyth Creatinine [Mass/Vol] 0.74 mg/dL Normal 0.55-1.02 [facility] Comment on above: Performed By: #### C MP ####[facility] Kusnqxezwo3068 [place] [phone]. Tadeo Smyth EGFR-AF CROATIAN >60 Normal >=60 [facility] Comment on above: Performed By: #### C MP ####[facility] Bhfrqzgpaw8211[address] [place], [place] [address]Dr. Tadeo Smyth EGFR-NON AF CROATIAN >60 Normal >=60 [facility] Comment on above: Performed By: #### C MP ####[facility] Tnxygvyzjt5084[address] [place], [place] [address]Dr. Tadeo Smyth Globulin (S) [Mass/Vol] 3.4 g/dL Normal [facility] Comment on above: Performed By: #### C MP ####[facility] Sdnwaboyax7876 [place] [address]Dr. Tadeo Smyth Glucose [Mass/Vol] 107 mg/dL Critically high 74-106 [facility] Comment on above: Performed By: #### C MP ####[facility] Scytbokvzr1384 [place] [address]Dr. Tadeo Smyth Potassium [Moles/Vol] 3.7 mmol/L Normal 3.5-5.1 [facility] Comment on above: Performed By: #### C MP ####[facility] Rffnbqixfc8580 [place] [address]Dr. Tadeo Smyth Protein [Mass/Vol] 6.2 g/dL Critically low 6.4-8.2 [facility] Comment on above: Performed By: #### C MP ####[facility] Mimyktxtkj3203[address] [place], [place] [address]Dr. Tadeo Smyth Sodium [Moles/Vol] 141 mmol/L Normal 136-145 [facility] Comment on above: Performed By: #### C MP ####[facility] Kdpmwmwcsh2659[address] [place], [place] [address]Dr. Tadeo Smyth Urea nitrogen [Mass/Vol] 7.0 mg/dL Normal 7.0-18.0 [facility] Comment on above: Performed By: #### C MP ####[facility] Dstfrzabon1027 [place] [address]Dr. Tadeo Smyth Urea nitrogen/Creatinine [Mass ratio] 9.5 mg/mg Normal [facility] Comment on above: Performed By: #### C MP ####[facility] Ablasynoij5217 [place] [address]Dr. Tadeo Haja XR KUB 1 VIEWon 03-29-2022 XR KUB 1 VIEW Normal [facility] CBC AUTO DIFFon 03-28-2022 BASO # 0.0 103/ul Normal 0.0-0.1 [facility] Comment on above: Performed By: #### C BC ####[facility] Ohimfjjiav4857 [place] [phone]. Tadeo Smyth Basophils/100 WBC (Bld) 0.7 % Normal 0.2-2.0 [facility] Comment on above: Performed By: #### C BC ####[facility] Huwnwbczvk9[address] [place], [place] [phone]. Tadeo Smyth EO # 0.2 103/ul Normal 0.0-0.7 [facility] Comment on above: Performed By: #### C BC ####[facility] Tlwnsxhmuv616[address] [place], [place] [phone]. Tadeo Smyth Eosinophils/100 WBC (Bld) 3.3 % Normal 0.9-7.0 [facility] Comment on above: Performed By: #### C BC ####[facility] Uksmpfozbw4202[address] [place], [place] [address]Dr. Tadeo Smyth Erythrocyte distribution width (RBC) [Ratio] 13.2 % Normal 11.0-15.0 [facility] Comment on above: Performed By: #### C BC ####[facility] Jwbickxmmp3475[address] [place], [place] [address]Dr. Tadeo Smyth Hematocrit (Bld) [Volume fraction] 34.2 % Critically low 36.0-48.0 [facility] Comment on above: Performed By: #### C BC ####[facility] Qmnrpusaqo149[address] [place], [place] [address]Dr. Tadeo Smyth Hemoglobin (Bld) [Mass/Vol] 10.8 g/dL Critically low 12.0-16.0 [facility] Comment on above: Performed By: #### C BC ####[facility] Hrqvcdsdja4386[address] [place], [place] [address]Dr. Tadeo Smyth IG # 0.01 10e3/ul Normal 0.00-0.03 [facility] Comment on above: Performed By: #### C BC ####[facility] Luvppeutbs8975[address] [place], [place] [phone]. Tadeo Smyth IG % 0.2 % Normal 0.0-0.5 [facility] Comment on above: Performed By: #### C BC ####[facility] Adbhknvxsv5941 [place] [phone]. Tadeo Haja LYMPH # 1.3 103/ul Normal 1.2-3.8 [facility] Comment on above: Performed By: #### C BC ####[facility] Nazyotniey8207 [place] [phone]. Tadeo Smyth Lymphocytes/100 WBC (Bld) 28.4 % Normal 20.5-60.0 [facility] Comment on above: Performed By: #### C BC ####[facility] Zufkpyciih35[address] [place], [place] [address]Dr. Tadeo Smyth MANUAL DIFF REQ NO Normal [facility] Comment on above: Performed By: #### C BC ####[facility] Cxhdlmiuvd4234[address] [place], [place] [address]Dr. Tadeo Smyth MCH (RBC) [Entitic mass] 28.3 pg Normal 26.7-34.0 [facility] Comment on above: Performed By: #### C BC ####[facility] Evlufjhdub030[address] [place], [place] [address]Dr. Margotnicole Smyth MCHC (RBC) [Mass/Vol] 31.6 g/dL Normal 29.9-35.2 [facility] Comment on above: Performed By: #### C BC ####[facility] Zoqdelapvm5915 [place] [phone]. Tadeo Smyth MCV (RBC) [Entitic vol] 89.5 fL Normal 81.0-99.0 [facility] Comment on above: Performed By: #### C BC ####[facility] Davivmlrha8156 [place] [phone]. Tadeo Smyth MONO # 0.3 103/ul Normal 0.3-0.8 [facility] Comment on above: Performed By: #### C BC ####[facility] Vjowleijik5002 [place] [phone]. Tadeo Smyth Monocytes/100 WBC (Bld) 5.5 % Normal 1.7-12.0 [facility] Comment on above: Performed By: #### C BC ####[facility] Wlajwozhnt8588 [place] [phone]. Tadeo Smyth NEUT # 2.8 103/ul Normal 1.4-6.5 [facility] Comment on above: Performed By: #### C BC ####[facility] Uwkusxtndk4130 [place] [phone]. Tadeo Smyth Neutrophils/100 WBC (Bld) 61.9 % Normal 43.0-75.0 [facility] Comment on above: Performed By: #### C BC ####[facility] Amlamaufys2673 [place] [phone]. Tadeo Haja Platelet mean volume (Bld) [Entitic vol] 9.1 fL Critically low 9.5-13.5 [facility] Comment on above: Performed By: #### C BC ####[facility] Doonftpcko5616 [place] [address]Dr. Tadeo Smyth PLT 327 103/ul Normal 150-450 [facility] Comment on above: Performed By: #### C BC ####[facility] Ejlmqicoxs8424 [place] [phone]. Tadeo Haja RBC 3.82 106/ul Critically low 4.20-5.40 [facility] Comment on above: Performed By: #### C BC ####[facility] Elfepcrvbh6006 [place] [phone]. Tadeo Smyth WBC 4.5 103/ul Normal 4.0-11.0 [facility] Comment on above: Performed By: #### C BC ####[facility] Zidrkbjmss4943 [place] [phone] Smyth POINT OF CARE GLUCOSEon 03-06 Glucose [Mass/Vol] 84 mg/dL Normal 74-106 [facility] Comment on above: Performed By: #### P OCGLUC ####[facility] Tqaykomyrt2113 [place] [address]DrNeo Smyth PROF 14(COMP METB)on 022 Albumin [Mass/Vol] 2.9 g/dL Critically low 3.4-5.0 Th e [facility] Comment on above: Performed By: #### C MP ####[facility] Qijnnctjuf9896 [place] [address]Dr. Tadeo Haja Albumin/Globulin [Mass ratio] 0.9 {ratio} Normal [facility] Comment on above: Performed By: #### C MP ####[facility] Lfsahbkdlv0466 [place] [address]Dr. Tadeo Haja ALP [Catalytic activity/Vol] 119 U/L Critically high 46-116 [facility] Comment on above: Performed By: #### C MP ####[facility] Hfpgtwvjzs5075[address] [place], [place] [address]Dr. Tadeo Haja ALT [Catalytic activity/Vol] 15 U/L Normal 14-59 [facility] Comment on above: Performed By: #### C MP ####[facility] Rncyhxrkza27[address] [place], [place] [address]Dr. Tadeo Smyth Anion gap [Moles/Vol] 7.9 mmol/L Normal [facility] Comment on above: Performed By: #### C MP ####[facility] Seszylojvf1862[address] [place], [place] [address]Dr. Tadeo Haja AST [Catalytic activity/Vol] 11 U/L Critically low 15-37 [facility] Comment on above: Performed By: #### C MP ####[facility] Cudgmktgjk202[address] [place], [place] [address]Dr. Tadeo Smyth Bilirubin [Mass/Vol] 0.4 mg/dL Normal 0.2-1.0 The [facility] Comment on above: Performed By: #### C MP ####[facility] Eudainlfot8137[address] [place], [place] [address]Dr. Tadeo Smyth Calcium [Mass/Vol] 8.7 mg/dL Normal 8.5-10.1 The [facility] Comment on above: Performed By: #### C MP ####[facility] Ylcmtcmbji8227[address] [place], [place] [address]Dr. Tadeo Smyth Chloride [Moles/Vol] 109 mmol/L Critically high 98-107 The [facility] Comment on above: Performed By: #### C MP ####[facility] Mzgdotfrgv3882 [place] [address]Dr. Tadeo Smyth CO2 [Moles/Vol] 27.9 mmol/L Normal 21.0-32.0 [facility] Comment on above: Performed By: #### C MP ####[facility] Dkfkdxrfkr9899 [place] [address]Dr. Tadeo Smyth Creatinine [Mass/Vol] 0.75 mg/dL Normal 0.55-1.02 The [facility] Comment on above: Performed By: #### C MP ####[facility] Ainzncbcjr6500 [place] [address]Dr. Tadeo Smyth EGFR-AF CROATIAN >60 Normal >=60 [facility] Comment on above: Performed By: #### C MP ####[facility] Renmufqshn5050 [place] [address]Dr. Tadeo Smyth EGFR-NON AF CROATIAN >60 Normal >=60 [facility] Comment on above: Performed By: #### C MP ####[facility] Zbiszlucuj0813 [place] [address]Dr. Tadeo Smyth Globulin (S) [Mass/Vol] 3.3 g/dL Normal [facility] Comment on above: Performed By: #### C MP ####[facility] Facnnobdon0877 [place] [address]Dr. Tadeo Smyth Glucose [Mass/Vol] 95 mg/dL Normal 74-106 [facility] Comment on above: Performed By: #### C MP ####[facility] Nkuhbgrfen8670 [place] [address]Dr. Tadeo Smyth Potassium [Moles/Vol] 3.8 mmol/L Normal 3.5-5.1 The [facility] Comment on above: Performed By: #### C MP ####[facility] Itxqililxr3885 [place] [address]Dr. Tadeo Smyth Protein [Mass/Vol] 6.2 g/dL Critically low 6.4-8.2 Th [facility] Comment on above: Performed By: #### C MP ####[facility] Kvudwwctoh4118 [place] [address]Dr. Tadeo Smyth Sodium [Moles/Vol] 141 mmol/L Normal 136-145 [facility] Comment on above: Performed By: #### C MP ####[facility] Mbnpxlilnn1601 [place] [address]Dr. Tadeo Smyth Urea nitrogen [Mass/Vol] 8.0 mg/dL Normal 7.0-18.0 [facility] Comment on above: Performed By: #### C MP ####[facility] Tcucoihiob7585 [place] [address]Dr. Tadeo Smyth Urea nitrogen/Creatinine [Mass ratio] 10.7 mg/mg Normal [facility] Comment on above: Performed By: #### C MP ####[facility] [address]yylqdq[address] [address] [place], [place] [address]Dr. 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 Tadeo Smyth Clarity (U) SL CLOUDY Abnormal CLEAR The [facility] Comment on above: Performed By: #### U ACSBLANE ICRO ####[facility] [address]fplfh[address] [place] [address]Dr. Tadeo Smyth Color (U) LT. YELLOW Normal YELLOW The [facility] Comment on above: Performed By: #### U ACSBLANE ICRO ####[facility] Hevfwdcmvv9[address] [place] [address]Dr. Tadeo Smyth Glucose Ql (U) Negative Normal NEGATIVE The [facility] Comment on above: Performed By: #### U ACSBLANE ICRO ####[facility] [address]us[address]upoaz[address] [place] [address]Dr. Tadeo Smyth Hemoglobin Ql (U) TRACE-INTACT Abnormal NEGATIVE The [facility] Comment on above: Performed By: #### U ACSBLANE UMICRO ####[facility] Zzbxwtqozo8[address] [place] [address]Dr. Tadeo Smyth Ketones Ql (U) TRACE Abnormal NEGATIVE The [facility] Comment on above: Performed By: #### U MARE UMICRO ####[facility] Jtawjgjxjx[address] [place] [address]Dr. Tadeo Smyth LEUKOCYTES Negative Normal NEGATIVE The [facility] Comment on above: Performed By: #### U MARE UMICRO ####[facility] Jubplmybus[address] [place] [address]Dr. Tadeo Smyth Nitrite Ql (U) Negative Normal NEGATIVE The [facility] Comment on above: Performed By: #### U MARE ICRO ####[facility] Bktjlsvlbb8[address] [place], [place] [address]Dr. Tadeo Smyth pH (U) 6.5 [pH] Normal 5-9 The [facility] Comment on above: Performed By: #### U MARE ICRO ####[facility] Ikeimkwbfy23[address] [place], [place] [address]Dr. Tadeo Smyth SPEC GRAVITY 1.015 Normal 1.005-<=1.0 25 [facility] Comment on above: Performed By: #### U MARE ICRO ####[facility] Zitromvmyq4427[address] [place], [place] [address]Dr. Tadeo Smyth UA PROTEIN Negative Normal NEGATIVE/ TRACE The [facility] Comment on above: Performed By: #### U MARE ICRO ####[facility] Qmgqdszbdw9[address] [place], [place] [address]Dr. Tadeo Smyth UR MICRO IND INDICATED Normal The [facility] Comment on above: Performed By: #### U MARE UMICRO ####[facility] Miegvqoojq8735[address] [place], [place] [address]Dr. Tadeo Smyth Urobilinogen Qn (U) 0.2 {Benito'U}/dL Normal 0.2 - 1. 0 [facility] Comment on above: Performed By: #### U MARE UMICRO ####[facility] Gzhefcfbfh45[address] [place], [place] [address]Dr. Tadeo Smyth URINE MICROSCOPIC ONLYon BACTERIA MODERATE Abnormal NONE SEEN The [facility] Comment on above: Performed By: #### U ACSBLANE UMICRO ####[facility] Ttpkmytzwi[address] [place] [address]Dr. Tadeo Smyth Bacteria identified Cx Nom (U) INDICATED Normal The [facility] Comment on above: Performed By: #### U ACSBLANE UMICRO ####[facility] Fbpazwgegk57[address] [place] [address]Dr. Tadeo Smyth CAST NONE SEEN Normal NONE SEEN The [facility] Comment on above: Performed By: #### U ACSBLANE UMICRO ####[facility] Ftsmeuviiq44[address] [place] [address]Dr. Tadeo Smyth Crystals LM Nom (Urine sed) NONE SEEN Normal NONE SEEN The [facility] Comment on above: Performed By: #### U ACSBLANE UMICRO ####[facility] Vzvsuwuifk0[address] [place] [address]Dr. Tadeo Smyth Epithelial cells LM Ql (Urine sed) RARE Normal NONE SEEN /RARE The [facility] Comment on above: Performed By: #### U ACSBLANE UMICRO ####[facility] Twvrnsztcg5[address] [place] [address]Dr. Tadeo Smyth MUCOUS NONE SEEN Normal NONE SEEN The [facility] Comment on above: Performed By: #### U ACSBLANE UMICRO ####[facility] Evhvjvxkpa11[address] [place] [address]Dr. Tadeo Smyth RBC NONE SEEN Abnormal 0-2 The [facility] Comment on above: Performed By: #### U ACSBLANE UMICRO ####[facility] Qvtuuhlnta3281 [place] [address]Dr. Tadeo Smyth WBC 2-5 Abnormal NONE SEEN The [facility] Comment on above: Performed By: #### U ACSBLANE, UMICRO ####[facility] Lmyuswbprx6[address] [place] [address]Dr. Tadeo Smyth XR ABD FLAT UP_PA Kasey 03-28 XR ABD FLAT UP_PA CH Normal The [facility] CBC AUTO DIFFon 03-27-2022 BASO # 0.0 103/ul Normal 0.0-0.1 The [facility] Comment on above: Performed By: #### C BC ####[facility] Wzecxavyeu32[address] [place], [place] [address]Dr. Tadeo Smyth Basophils/100 WBC (Bld) 0.5 % Normal 0.2-2.0 The [facility] Comment on above: Performed By: #### C BC ####[facility] Nxpmfkjjpa624[address] [place], [place] [address]Dr. Margotnicole Haja EO # 0.2 103/ul Normal 0.0-0.7 The [facility] Comment on above: Performed By: #### C BC ####[facility] Edgfjcyjnv9995[address] [place], [place] [address]Dr. Margotnicole Haja Eosinophils/100 WBC (Bld) 3.2 % Normal 0.9-7.0 The [facility] Comment on above: Performed By: #### C BC ####[facility] Chzwglkpmk6569[address] [place], [place] [address]Dr. Margotnicole Smyth Erythrocyte distribution width (RBC) [Ratio] 13.1 % Normal 11.0-15.0 The [facility] Comment on above: Performed By: #### C BC ####[facility] Sldsmliyro4208[address] [place], [place] [address]Dr. Margotnicole Smyth Hematocrit (Bld) [Volume fraction] 34.8 % Critically low 36.0-48.0 The [facility] Comment on above: Performed By: #### C BC ####[facility] Eaqxakezqf6532[address] [place], [place] [address]Dr. Tadeo Smyth Hemoglobin (Bld) [Mass/Vol] 11.3 g/dL Critically low 12.0-16.0 The [facility] Comment on above: Performed By: #### C BC ####[facility] Lzqzylpqjs5679[address] [place], [place] [address]Dr. Tadeo Smyth IG # 0.01 10e3/ul Normal 0.00-0.03 The [facility] Comment on above: Performed By: #### C BC ####[facility] Ndxoibynip15[address] [place] [address]Dr. Margotnicole Smyth IG % 0.2 % Normal 0.0-0.5 The [facility] Comment on above: Performed By: #### C BC ####[facility] Vpklsvstrz6134 [place] [address]Dr. Tadeo Smyth LYMPH # 1.6 103/ul Normal 1.2-3.8 The [facility] Comment on above: Performed By: #### C BC ####[facility] Wmvqxffjss4163[address] [place], [place] [address]Dr. Margotnicole Smyth Lymphocytes/100 WBC (Bld) 29.1 % Normal 20.5-60.0 The [facility] Comment on above: Performed By: #### C BC ####[facility] Mqhtyufvkv[address] [place] [address]Dr. Tadeo Smyth MANUAL DIFF REQ NO Normal The [facility] Comment on above: Performed By: #### C BC ####[facility] Yldpycjmfw55[address] [place] [address]Dr. Tadeo Haja MCH (RBC) [Entitic mass] 29.1 pg Normal 26.7-34.0 The [facility] Comment on above: Performed By: #### C BC ####[facility] Ozvagmskcx6058[address] [place], [place] [address]Dr. Tadeo Haja MCHC (RBC) [Mass/Vol] 32.5 g/dL Normal 29.9-35.2 The [facility] Comment on above: Performed By: #### C BC ####[facility] Xivsngrvgc2674[address] [place], [place] [address]Dr. Tadeo Smyth MCV (RBC) [Entitic vol] 89.7 fL Normal 81.0-99.0 The [facility] Comment on above: Performed By: #### C BC ####[facility] Sizmhvilcy6926[address] [place], [place] [address]Dr. Tadeo Smyth MONO # 0.3 103/ul Normal 0.3-0.8 The [facility] Comment on above: Performed By: #### C BC ####[facility] Jgaugddvqv8785[address] [place], [place] [address]Dr. Tadeo Smyth Monocytes/100 WBC (Bld) 5.7 % Normal 1.7-12.0 The [facility] Comment on above: Performed By: #### C BC ####[facility] Rvyvrutwwt[address] [place] [address]Dr. Tadeo Smyth NEUT # 3.5 103/ul Normal 1.4-6.5 The [facility] Comment on above: Performed By: #### C BC ####[facility] Pozefalvaj87[address] [place] [address]Dr. Tadeo Smyth Neutrophils/100 WBC (Bld) 61.3 % Normal 43.0-75.0 The [facility] Comment on above: Performed By: #### C BC ####[facility] Doopqhvobs[address] [place] [address]Dr. Tadeo Smyth Platelet mean volume (Bld) [Entitic vol] 9.1 fL Critically low 9.5-13.5 The [facility] Comment on above: Performed By: #### C BC ####[facility] Tftesanqls[address] [place] [address]Dr. Tadeo Smyth PLT 355 103/ul Normal 150-450 The [facility] Comment on above: Performed By: #### C BC ####[facility] Gnxcqgdxik3383[address] [place], [place] [address]Dr. Tadeo Smyth RBC 3.88 106/ul Critically low 4.20-5.40 The [facility] Comment on above: Performed By: #### C BC ####[facility] Leyjkxjehy380[address] [place], [place] [address]Dr. Tadeo Smyth WBC 5.6 103/ul Normal 4.0-11.0 The [facility] Comment on above: Performed By: #### C BC ####[facility] Ulnnzujmwt8801[address] [place], [place] [address]Dr. Tadeo Smyth CT ABD/PELV W CONon 03-27-20 CT ABD/PELV W CON Normal [facility] CT ABD/PELVIS WO CONon 03-27 CT ABD/PELVIS WO CON Normal [facility] Covid-19 PCR (CVDTBH)on 03-06 SARS-CoV-2 (COVID-19) RNA CHEN+probe Ql (Unsp spec) Not detected Normal NOT DETECTED The [facility] Comment on above: Result Comment: When [...] for this test is supported by the Assistant Professor Of [employer] of [employer] and Human Service's declaration that [...] longer be used). Performed By: #### [facility] ####[facility] Znwvilnmiw9185[address] [place], [place] [address]Dr. Tadeo Smyth ER URINE PROFILEon Bilirubin Ql (U) Negative Normal NEGATIVE The [facility] Comment on above: Performed By: #### E NOLAN, PREGU ####[facility] Pbgzqodxck2075[address] [place], [place] [address]Dr. Tadeo Smyth Clarity (U) CLEAR Normal CLEAR The [facility] Comment on above: Performed By: #### E SARAH BETHR, PREGU ####[facility] Aqovpgydhx3409[address] [place], [place] [address]Dr. Tadeo Smyth Color (U) LT. YELLOW Normal YELLOW The [facility] Comment on above: Performed By: #### E RUR, PREGU ####[facility] Vzousjwvdg065[address] [place], [place] [address]Dr. Tadeo Smyth ERUAHD A micrscopic examina tion will be performed if indicated. Normal The [facility] Comment on above: Performed By: #### E RUR, PREGU ####[facility] Aecyajnfvf583[address] [place], [place] [address]Dr. Tadeo Smyth Glucose Ql (U) Negative Normal NEGATIVE The [facility] Comment on above: Performed By: #### E RUR, PREGU ####[facility] Vktcvxtxvv1934[address] [place], [place] [address]Dr. Tadeo Smyth Hemoglobin Ql (U) SMALL Abnormal NEGATIVE The [facility] Comment on above: Performed By: #### E RUR, PREGU ####[facility] Fmrwvcjjib5922[address] [place], [place] [address]Dr. Tadeo Smyth Ketones Ql (U) TRACE Abnormal NEGATIVE The [facility] Comment on above: Performed By: #### E RUR, PREGU ####[facility] Ijjbhbgdgc7555[address] [place], [place] [address]Dr. Margotnicole Smyth LEUKOCYTES Negative Normal NEGATIVE The [facility] Comment on above: Performed By: #### E RUR, PREGU ####[facility] Caikttrgfk232718 [address] [place], [place] [address]Dr. Tadeo Smyth Nitrite Ql (U) Negative Normal NEGATIVE The [facility] Comment on above: Performed By: #### E RUR, PREGU ####[facility] Bjrezpokdl040018 [address] [place], [place] [address]Dr. Tadeo Smyth pH (U) 6.0 [pH] Normal 5-9 [facility] Comment on above: Performed By: #### E RUR, PREGU ####[facility] Ndtpawfcbx4157[address] [place], [place] [address]Dr. Margotnicole Smyth SPEC GRAVITY >=1.030 Abnormal 1.005-<=1.0 25 [facility] Comment on above: Performed By: #### E RUR, PREGU ####[facility] Slmxsrtfnj7906[address] [place], [place] [address]Dr. Tadeo Smyth UA PROTEIN Negative Normal NEGATIVE/ TRACE The [facility] Comment on above: Performed By: #### E RUR, PREGU ####[facility] Rlwzskggzf8657[address] [place], [place] [address]Dr. Tadeo Smyth UR MICRO IND NOT INDICATED Normal The [facility] Comment on above: Performed By: #### E RUR, PREGU ####[facility] K[address]cqppebs[address] [place] [address]Dr. Tadeo Smyth Urobilinogen Qn (U) 0.2 {Benito'U}/dL Normal 0.2 - 1. 0 The [facility] Comment on above: Performed By: #### E RUR, PREGU ####[facility] Bjgigaqjax50[address] [place] [address]Dr. Tadeo Smyth LIPASEon 03-27-2022 Lipase [Catalytic activity/Vol] 126.0 U/L Normal 73.0-393.0 The [facility] Comment on above: Performed By: #### L IPA, CMP ####[facility] Gfngiwrasy2193[address] [place], [place] [address]Dr. Tadeo Smyth URon 03-27-2022 , QUAL Negative Normal NEGATIVE The [facility] Comment on above: Performed By: #### E RUR, PREGU ####[facility] Oaqfqcwwkv6406[address] [place], [place] [address]Dr. Tadeo Smyth PROF 14(COMP METB)on 022 Albumin [Mass/Vol] 3.6 g/dL Normal 3.4-5.0 The [facility] Comment on above: Performed By: #### L IPA, CMP ####[facility] Lqomvpvsqt1902[address] [place], [place] [address]Dr. Tadeo Smyth Albumin/Globulin [Mass ratio] 1.1 {ratio} Normal The [facility] Comment on above: Performed By: #### L IPA, CMP ####[facility] Nnjmhhhsna6987[address] [place], [place] [address]Dr. Tadeo Smyth ALP [Catalytic activity/Vol] 139 U/L Critically high 46-116 The [facility] Comment on above: Performed By: #### L IPA, CMP ####[facility] Hktjiglten6132[address] [place], [place] [address]Dr. Tadeo Smyth ALT [Catalytic activity/Vol] 18 U/L Normal 14-59 The [facility] Comment on above: Performed By: #### L IPA, CMP ####[facility] Anyateojby2002[address] [place], [place] [address]Dr. Tadeo Smyth Anion gap [Moles/Vol] 10.7 mmol/L Normal Th e [facility] Comment on above: Performed By: #### L IPA, CMP ####[facility] Rwpnqqdppx04[address] [place] [address]Dr. Tadeo Smyth AST [Catalytic activity/Vol] 11 U/L Critically low 15-37 The [facility] Comment on above: Performed By: #### L IPA, CMP ####[facility] Nibbvzevez5238 [place] [address]Dr. Tadeo Smyth Bilirubin [Mass/Vol] 0.2 mg/dL Normal 0.2-1.0 The [facility] Comment on above: Performed By: #### L IPA, CMP ####[facility] Kvgvtwgdcx8557[address] [place], [place] [address]Dr. Tadeo Smyth Calcium [Mass/Vol] 9.0 mg/dL Normal 8.5-10.1 The [facility] Comment on above: Performed By: #### L IPA, CMP ####[facility] Kjcrzzuywn4593[address] [place], [place] [address]Dr. Tadeo Smyth Chloride [Moles/Vol] 106 mmol/L Normal 98-107 The [facility] Comment on above: Performed By: #### L IPA, CMP ####[facility] Zehtvwxlsy1899[address] [place], [place] [address]Dr. Tadeo Smyth CO2 [Moles/Vol] 26.9 mmol/L Normal 21.0-32.0 The [facility] Comment on above: Performed By: #### L IPA, CMP ####[facility] Mdnmnqluzu893[address] [place], [place] [address]Dr. Tadeo Smyth Creatinine [Mass/Vol] 0.84 mg/dL Normal 0.55-1.02 The [facility] Comment on above: Performed By: #### L IPA, CMP ####[facility] Ujtfnguwxd232[address] [place], [place] [address]Dr. Tadeo Smyth EGFR-AF CROATIAN >60 Normal >=60 The [facility] Comment on above: Performed By: #### L IPA, CMP ####[facility] Tirisgbqns65[address] [place] [address]Dr. Tadeo Smyth EGFR-NON AF CROATIAN >60 Normal >=60 The [facility] Comment on above: Performed By: #### L IPA, CMP ####[facility] Rvxopqocny3658[address] [place], [place] [address]Dr. Tadeo Smyth Globulin (S) [Mass/Vol] 3.4 g/dL Normal The [facility] Comment on above: Performed By: #### L IPA, CMP ####[facility] Jgojrbezbr5273[address] [place], [place] [address]Dr. Tadeo Smyth Glucose [Mass/Vol] 96 mg/dL Normal 74-106 The [facility] Comment on above: Performed By: #### L IPA, CMP ####[facility] Tqysxhrqwf6173[address] [place], [place] [address]Dr. Tadeo Smyth Potassium [Moles/Vol] 3.6 mmol/L Normal 3.5-5.1 The [facility] Comment on above: Performed By: #### L IPA, CMP ####[facility] Calyqojasf4298[address] [place], [place] [address]Dr. Tadeo Smyth Protein [Mass/Vol] 7.0 g/dL Normal 6.4-8.2 The [facility] Comment on above: Performed By: #### L IPA, CMP ####[facility] Niufhlxojw2817[address] [place], [place] [address]Dr. Tadeo Smyth Sodium [Moles/Vol] 140 mmol/L Normal 136-145 The [facility] Comment on above: Performed By: #### L IPA, CMP ####[facility] Fyvcnapdwc080[address] [place], [place] [address]Dr. Tadeo Smyth Urea nitrogen [Mass/Vol] 23.0 mg/dL Critically high 7.0-18.0 The [facility] Comment on above: Performed By: #### L IPA, CMP ####[facility] Ltivjxmgeg725[address] [place], [place] [address]Dr. Tadeo Smyth Urea nitrogen/Creatinine [Mass ratio] 27.4 mg/mg Normal The [facility] Comment on above: Performed By: #### L IPA, CMP ####[facility] Fcbvuzusem8[address] [place] [address]Dr. Tadeo Smyth GROUP A STREP CULTUREon S. pyogenes Ag Ql (Unsp spec) Normal [facility] Comment on above: Performed By: #### G RASTCX, SSCRN ####[facility] Hgwubymvwc923[address] [place], [place] [address]Dr. Tadeo Smyth AMYLASEon 02-02-2022 Amylase [Catalytic activity/Vol] 37 U/L Normal 25-115 [facility] Comment on above: Performed By: #### C MP, VIJI, LIPA ####[facility] Laxbjpcgfp2212[address] [place], [place] [address]Dr. Tadeo Smyth CBC AUTO DIFFon 02-02-2022 BASO # 0.0 103/ul Normal 0.0-0.1 [facility] Comment on above: Performed By: #### C BC ####[facility] Oyckpchqli8638[address] [place], [place] [address]Dr. Margotnicole Smyth Basophils/100 WBC (Bld) 0.2 % Normal 0.2-2.0 [facility] Comment on above: Performed By: #### C BC ####[facility] Fvqrgvbdmc1322[address] [place], [place] [address]Dr. Tadeo Smyth EO # 0.0 103/ul Normal 0.0-0.7 [facility] Comment on above: Performed By: #### C BC ####[facility] Ftroylhpmx4476[address] [place], [place] [address]Dr. Tadeo Haja Eosinophils/100 WBC (Bld) 0.2 % Critically low 0.9-7.0 [facility] Comment on above: Performed By: #### C BC ####[facility] Uvrstrqrbo9088[address] [place], [place] [address]Dr. Tadeo Smyth Erythrocyte distribution width (RBC) [Ratio] 13.4 % Normal 11.0-15.0 [facility] Comment on above: Performed By: #### C BC ####[facility] Lypvzoogrk0528[address] [place], [place] [address]Dr. Tadeo Haja Hematocrit (Bld) [Volume fraction] 36.8 % Normal 36.0-48.0 [facility] Comment on above: Performed By: #### C BC ####[facility] Qrbycwpowo75[address] [place] [address]DrNeo Tadeo Haja Hemoglobin (Bld) [Mass/Vol] 11.6 g/dL Critically low 12.0-16.0 [facility] Comment on above: Performed By: #### C BC ####[facility] Wnpupffyfy76[address] [place] [address]DrNeo Frostnicole Haja IG # 0.08 10e3/ul Critically high 0.00-0.03 [facility] Comment on above: Performed By: #### C BC ####[facility] Hwdqwrobob0698[address] [place], [place] [address]DrNeo Smyth IG % 0.6 % Critically high 0.0-0.5 [facility] Comment on above: Performed By: #### C BC ####[facility] Ppydaglitx2724[address] [place], [place] [address]DrNeo Smyth LYMPH # 0.9 103/ul Critically low 1.2-3.8 [facility] Comment on above: Performed By: #### C BC ####[facility] Nxkpwfhlak3193[address] [place], [place] [address]DrNeo Smyth Lymphocytes/100 WBC (Bld) 6.9 % Critically low 20.5-60.0 [facility] Comment on above: Performed By: #### C BC ####[facility] Bgiakurlkw8983[address] [place], [place] [address]DrNeo Smyth MANUAL DIFF REQ NO Normal [facility] Comment on above: Performed By: #### C BC ####[facility] Rblmkbqlta18[address] [place] [address]DrNeo Smyth MCH (RBC) [Entitic mass] 28.9 pg Normal 26.7-34.0 [facility] Comment on above: Performed By: #### C BC ####[facility] Kfhkehkahc8[address] [place] [address]DrNeo Smyth MCHC (RBC) [Mass/Vol] 31.5 g/dL Normal 29.9-35.2 [facility] Comment on above: Performed By: #### C BC ####[facility] Wljgbsqrsz2[address] [place] [address]DrNeo Smyth MCV (RBC) [Entitic vol] 91.8 fL Normal 81.0-99.0 [facility] Comment on above: Performed By: #### C BC ####[facility] Bpzqmtldrz7[address] [place] [address]DrNeo Smyth MONO # 0.9 103/ul Critically high 0.3-0.8 [facility] Comment on above: Performed By: #### C BC ####[facility] Ncfsywcntj4370 [place] [address]DrNeo Smyth Monocytes/100 WBC (Bld) 6.9 % Normal 1.7-12.0 [facility] Comment on above: Performed By: #### C BC ####[facility] Eykpbpipug299[address] [place], [place] [address]DrNeo Smyth NEUT # 11.6 103/ul Critically high 1.4-6.5 [facility] Comment on above: Performed By: #### C BC ####[facility] Zchyrffwmu549[address] [place], [place] [address]DrNeo Smyth Neutrophils/100 WBC (Bld) 85.2 % Critically high 43.0-75.0 [facility] Comment on above: Performed By: #### C BC ####[facility] Gcjyovmltt11[address] [place], [place] [address]DrNeo Smyth Platelet mean volume (Bld) [Entitic vol] 8.9 fL Critically low 9.5-13.5 [facility] Comment on above: Performed By: #### C BC ####[facility] Rehsjkxbza11[address] [place], [place] [address]DrNeo Smyth PLT 331 103/ul Normal 150-450 [facility] Comment on above: Performed By: #### C BC ####[facility] [address]umssrgkjb4[address] [place] [id number] Smyth RBC 4.01 106/ul Critically low 4.20-5.40 [facility] Comment on above: Performed By: #### C BC ####[facility] [address] [id number]. Tadeo Smyth WBC 13.7 103/ul Critically high 4.0-11.0 [facility] Comment on above: Performed By: #### C BC ####[facility] [address] [id number]. Tadeo Smyth Covid-19 PCR (CVDTB)on 01-05 SARS-CoV-2 (COVID-19) RNA CHEN+probe Ql (Unsp spec) Not detected Normal NOT DETECTED [facility] Comment on above: Result Comment: When [...] for this test is supported by the [place] of Health and Human Service's declaration that [...] be used). Performed By: #### C VDTBH ####[facility] [address] [place] [id number]. Tadeo Smyth LIPASEon 02-02-2022 Lipase [Catalytic activity/Vol] 33.0 U/L Critically low 73.0-393.0 [facility] Comment on above: Performed By: #### C VIJI GARCIA, LIPA ####[facility] [address] [id number]. Tadeo Smyth MONOon 02-02-2022 Monocytes (Bld) [#/Vol] Negative Normal NEGATIVE [facility] Comment on above: Performed By: #### M JESSICA ####[facility] [address] [address]Dr. Tadeo Smyth PROF 14(COMP METB)on 022 Albumin [Mass/Vol] 3.1 g/dL Critically low 3.4-5.0 [facility] Comment on above: Performed By: #### C MP VIJI, LIPA ####[facility] [address] [place] [place] [address]Dr. Tadeo Smyth Albumin/Globulin [Mass ratio] 0.9 {ratio} Normal [facility] Comment on above: Performed By: #### C JOSE VIJI, LIPA ####[facility] [address] [place], [place] [address]Dr. Tadeo Smyth ALP [Catalytic activity/Vol] 131 U/L Critically high 46-116 [facility] Comment on above: Performed By: #### C JOSE VIJI, LIPA ####[facility] Qvj[address] [place], [place] [address]Dr. Tadeo Smyth ALT [Catalytic activity/Vol] 25 U/L Normal 14-59 [facility] Comment on above: Performed By: #### C JOSE VIJI, LIPA ####[facility] [address] [place], [place] [address]Dr. Tadeo Smyth Anion gap [Moles/Vol] 10.0 mmol/L Normal [facility] Comment on above: Performed By: #### C MP VIJI, LIPA ####[facility] [address]sfn[address]my[address] [place], [place] [address]Dr. Tadeo Smyth AST [Catalytic activity/Vol] 19 U/L Normal 15-37 [facility] Comment on above: Performed By: #### C JOSE VIJI, LIPA ####[facility] [address]wt[address] [place], [place] [address]Dr. Tadeo Smyth Bilirubin [Mass/Vol] 0.6 mg/dL Normal 0.2-1.0 [facility] Comment on above: Performed By: #### C JOSE VIJI, LIPA ####[facility] [address] [place] [address]Dr. Tadeo Smyth Calcium [Mass/Vol] 8.2 mg/dL Critically low 8.5-10.1 [facility] Comment on above: Performed By: #### C MP, VIJI, LIPA ####[facility] Nappkv[address]st[address] [place], [place] [address]Dr. Tadeo Smyth Chloride [Moles/Vol] 106 mmol/L Normal 98-107 [facility] Comment on above: Performed By: #### C MP, VIJI, LIPA ####[facility] Rxqpgotizy[address] [place], [place] [address]Dr. Tadeo Smyth CO2 [Moles/Vol] 25.5 mmol/L Normal 21.0-32.0 [facility] Comment on above: Performed By: #### C MP, VIJI, LIPA ####[facility] Mxofndjdig[address] [place], [place] [address]Dr. Tadeo Smyth Creatinine [Mass/Vol] 0.78 mg/dL Normal 0.55-1.02 [facility] Comment on above: Performed By: #### C MP, VIJI, LIPA ####[facility] [address] [place], [place] [address]Dr. Tadeo Smyth EGFR-AF CROATIAN >60 Normal >=60 [facility] Comment on above: Performed By: #### C MP, VIJI, LIPA ####[facility] Lxinblblxm[address] [place], [place] [address]Dr. Tadeo Smyth EGFR-NON AF CROATIAN >60 Normal >=60 [facility] Comment on above: Performed By: #### C MP, VIJI, LIPA ####[facility] Ucdzwomtyu[address] [place], [place] [address]Dr. Tadeo Smyth Globulin (S) [Mass/Vol] 3.6 g/dL Normal [facility] Comment on above: Performed By: #### C MP, VIJI, LIPA ####[facility] Buefcgetms[address] [place], [place] [address]Dr. Tadeo Smyth Glucose [Mass/Vol] 110 mg/dL Critically high 74-106 [facility] Comment on above: Performed By: #### C MP, VIJI, LIPA ####[facility] [address] [place] [address]Dr. Tadeo Smyth Potassium [Moles/Vol] 3.5 mmol/L Normal 3.5-5.1 [facility] Comment on above: Performed By: #### C MP, VIJI, LIPA ####[facility] [address] [place] [address]Dr. Tadeo Smyth Protein [Mass/Vol] 6.7 g/dL Normal 6.4-8.2 [facility] Comment on above: Performed By: #### C MP, VIJI, LIPA ####[facility] [address] [place] [place] [address]Dr. Tadeo Smyth Sodium [Moles/Vol] 138 mmol/L Normal 136-145 [facility] Comment on above: Performed By: #### C MP, VIJI, LIPA ####[facility] [address]lxf[address]pe[address] [place], [place] [address]Dr. Tadeo Smyth Urea nitrogen [Mass/Vol] 11.0 mg/dL Normal 7.0-18.0 [facility] Comment on above: Performed By: #### C MP, VIJI, LIPA ####[facility] Ngdexjihbe0[address] [place], [place] [address]Dr. Tadeo Smyth Urea nitrogen/Creatinine [Mass ratio] 14.1 mg/mg Normal [facility] Comment on above: Performed By: #### C MP, VIJI, LIPA ####[facility] Oieimcft[address] [place], [place] [address]Dr. Tadeo Smyth STREPT SCREENon 02-02-2022 STREP SCREEN A Negative Normal NEGATIVE [facility] Comment on above: Performed By: #### G RASTCX, SSCRN ####[facility] Qkghsixu[address] [place], [place] [address]Dr. Tadeo Smyth BASIC METABOLIC PANELon 08-05 Calcium [Mass/Vol] 8.4 mg/dL Low 8.6-10.3 [facility] Comment on above: Order Comment: No: D o not add to previous draw Performed By: #### 3 065, 09679 #### [facility] [address] [place] [address], [place] Chloride [Moles/Vol] 108 mmol/L High 98-107 [facility] Comment on above: Order Comment: No: D o not add to previous draw Performed By: #### 3 578, 22726 #### [facility] [address] [place] [address], [place] CO2 [Moles/Vol] 26 mmol/L Normal 21-31 [facility] Comment on above: Order Comment: No: D o not add to previous draw Performed By: #### 3 331, 25950 #### [facility] [address] [place] [address], [place] Creatinine [Mass/Vol] 0.79 mg/dL Normal 0.60-1.20 [facility] Comment on above: Order Comment: No: D o not add to previous draw Performed By: #### 3 010, 53207 #### [facility] [address] [place] [address], [place] GFR/1.73 sq M predicted among blacks MDRD (S/P/Bld) [Vol rate/Area] mL/min/{1.73_m2} Normal >60 [facility] Comment on above: Order Comment: No: D o not add to previous draw Performed By: #### 3 457, 78562 #### [facility] [address] [place] [address], [place] GFR/1.73 sq M predicted among non-blacks MDRD (S/P/Bld) [Vol rate/Area] mL/min/{1.73_m2} Normal >60 [facility] Comment on above: Order Comment: No: D o not add to previous draw Performed By: #### 3 345, 49616 #### [facility] [address] [place] [address], [place] Glucose [Mass/Vol] 98 mg/dL Normal 70-100 [facility] Comment on above: Order Comment: No: D o not add to previous draw Performed By: #### 3 428, 91943 #### [facility] [address] [place] [address], [place] Potassium [Moles/Vol] 3.5 mmol/L Normal 3.5-5.1 [facility] Comment on above: Order Comment: No: D o not add to previous draw Performed By: #### 3 374, 28177 #### [facility] [address] [place] [address], [place] Sodium [Moles/Vol] 139 mmol/L Normal 136-145 [facility] Comment on above: Order Comment: No: D o not add to previous draw Performed By: #### 3 488, 74476 #### [facility] [address] [place] [address], [place] Urea nitrogen [Mass/Vol] 11 mg/dL Normal 7-25 [facility] Comment on above: Order Comment: No: D o not add to previous draw Performed By: #### 3 743, 76837 #### [facility] [address] [place] [address], [place] BLOOD STOOL GUAIACon 019 BLD STOOL GUAIAC Negative Normal NEGATIVE [facility] Comment on above: Order Comment: No: D o not add to previous draw Performed By: #### 3 609, 48211 #### [facility] [address] [place] [address], [place] MAGNESIUM BLOODon 08-16-2019 Magnesium [Mass/Vol] 2.0 mg/dL Normal 1.9-2.7 [facility] Comment on above: Order Comment: No: D o not add to previous draw Performed By: #### 3 055, 75285 #### [facility] [address] [place] [address], [place] *URINE CULTUREon 08-15-2019 Bacteria identified Cx Nom (U) Clinical Report: (D) Specimen/Source: URINE/MIDSTREAM Collected: 08/15/2019 20:40 Status: Final Last Updated: 08/17/2019 08:05 ISO (Final) Escherichia coli >100,000 Cfu/Ml ISOLATE: Escherichia coli RHONDA (mcg/ml) AMP./SULBAC (AMS) 16/8 Intermediate AMPICILLIN (AM) >16 Resistant AZTREONAM (AZM) <=1 Susceptible CEFAZOLIN (CZ) 2 Susceptible CEFTRIAXONE (STOPPING BUILDER) <=0.5 Susceptible CIPROFLOXACIN (CIP) >2 Resistant ESBL (-/+) (ESBL) Negative GENTAMICIN (GM) <=1 Susceptible NITROFURANTOIN (FT) <=16 Susceptible PIP/TAZO (TZP) 4/4 Susceptible TOBRAMYCIN (TOB) 1 Susceptible TRIMETH/SULFA (SXT) >2/38 Resistant Normal [facility] Comment on above: Performed By: #### 3 6901, 34721 #### [facility] [address] BASIC METABOLIC PANELon 12 Calcium [Mass/Vol] 8.8 mg/dL Normal 8.6-10.3 [facility] Comment on above: Order Comment: No: D o not add to previous draw Performed By: #### 0 0071, 48687, 37582 #### [facility] [address] Chloride [Moles/Vol] 107 mmol/L Normal 98-107 [facility] Comment on above: Order Comment: No: D o not add to previous draw Performed By: #### 0 0071, 29568, 08053 #### [facility] [address] [place] [address], [facility] CO2 [Moles/Vol] 27 mmol/L Normal 21-31 [facility] Comment on above: Order Comment: No: D o not add to previous draw Performed By: #### 0 0071, 49781, 61084 #### [facility] [address] [place] [address], [place] Creatinine [Mass/Vol] 0.99 mg/dL Normal 0.60-1.20 [facility] Comment on above: Order Comment: No: D o not add to previous draw Performed By: #### 0 0071, 57884, 57188 #### [facility] [address] [place] [address], [place] GFR/1.73 sq M predicted among blacks MDRD (S/P/Bld) [Vol rate/Area] mL/min/{1.73_m2} Normal >60 [facility] Comment on above: Order Comment: No: D o not add to previous draw Performed By: #### 0 0071, 81303, 99322 #### [facility] [address] [place] [address], [place] GFR/1.73 sq M predicted among non-blacks MDRD (S/P/Bld) [Vol rate/Area] 59 ml/min/1.73sq m Abnormal >60 [facility] Comment on above: Order Comment: No: D o not add to previous draw Performed By: #### 0 0071, 32690, 88430 #### [facility] [address] [place] [address], [place] Glucose [Mass/Vol] 100 mg/dL Normal 70-100 [facility] Comment on above: Order Comment: No: D o not add to previous draw Performed By: #### 0 0071, 72337, 97973 #### [facility] [address] [place] [address], [place] Potassium [Moles/Vol] 3.6 mmol/L Normal 3.5-5.1 [facility] Comment on above: Order Comment: No: D o not add to previous draw Performed By: #### 0 0071, 26549, 89651 #### [facility] [address] [place] [address], [place] Sodium [Moles/Vol] 140 mmol/L Normal 136-145 [facility] Comment on above: Order Comment: No: D o not add to previous draw Performed By: #### 0 0071, 49352, 18674 #### [facility] [address] [place] [address], [facility] Urea nitrogen [Mass/Vol] 9 mg/dL Normal 7-25 [facility] Comment on above: Order Comment: No: D o not add to previous draw Performed By: #### 0 0071, 95734, 31318 #### [facility] [address] [place] [address], [facility] LACTATE BLOODon 08-15-2019 Lactate [Moles/Vol] 0.8 mmol/L Normal 0.5-2.2 [facility] Comment on above: Order Comment: Yes: Add to Previous draw if able Performed By: #### 1 0054 #### [facility] [address] [facility] [address] LMWH HEPARIN ASSAYon 019 LOW MOLECULAR WEIGHT HEPARIN 0.32 IU/mL Low 0.60-1.20 [facility] Comment on above: Order Comment: (draw 4 [...] UFH and LMWH. Performed By: #### 3 3811, 63286 #### [facility] [address] [place] [address], [facility] MAGNESIUM BLOODon 08-15-2019 Magnesium [Mass/Vol] 1.7 mg/dL Low 1.9-2.7 [facility] Comment on above: Order Comment: No: D o not add to previous draw Performed By: #### 0 0071, 63368, 41770 #### [facility] [address] [place] [address], [facility] PHOSPHORUS BLOODon 9 Phosphate [Mass/Vol] 4.1 mg/dL Normal 2.5-5.0 [facility] Comment on above: Order Comment: No: D o not add to previous draw Performed By: #### 0 0071, 84847, 93232 #### [facility] [address] [place] [address], [facility] UGI WITH SMALL BOWELon 08-15 UGI WITH SMALL BOWEL [facility] Department of Radiology [address] [place], [place] [id number] Patient Name: CONSTANTINO CARDOSO : 1970 Sex: F Age: Race: White Pt. Location: [id number] Patient Status: O Ordered Date: 08/15/2019 10:45:00 [...] ischemia. Electronically signed by:Orestes Condon. Transcribed by: [id number], User Resident: Electronically Signed by: ORESTES CONDON @ 08/15/2019 04:13 PM Normal [facility] Comment on above: Order Comment: R/O O bstruction URINALYSIS REFLEXon 08-15-20 19 Appearance (U) SL CLOUDY Abnormal CLEAR [facility] Comment on above: Order Comment: No: D o not add to previous drawCriteria for reflexing a culture was met. Urine Culture and sensitivitywill be performed. Performed By: #### 3 7081, 12306 #### [facility] [address] [facility] [place] [address], [facility] Bilirubin [Mass/Vol] Negative Normal NEGATIVE [facility] Comment on above: Order Comment: No: D o not add to previous drawCriteria for reflexing a culture was met. Urine Culture and sensitivitywill be performed. Performed By: #### 3 5671, 52679 #### [facility] [address] [place] [address], [facility] BLOOD SMALL Abnormal NEGATIVE [facility] Comment on above: Order Comment: No: D o not add to previous drawCriteria for reflexing a culture was met. Urine Culture and sensitivitywill be performed. Performed By: #### 3 6901, 02221 #### [facility] [address] [place] [address], [place] Color (U) YELLOW Normal YELLOW [facility] Comment on above: Order Comment: No: D o not add to previous drawCriteria for reflexing a culture was met. Urine Culture and sensitivitywill be performed. Performed By: #### 3 6901, 22973 #### [facility] [address] [place] [address], [facility] EPIS OCC Normal FEW,OCC,NON E SEEN [facility] Comment on above: Order Comment: No: D o not add to previous drawCriteria for reflexing a culture was met. Urine Culture and sensitivitywill be performed. Performed By: #### 3 202, 95773 #### [facility] [address] [place] [address], [place] Glucose [Mass/Vol] Negative Normal NEGATIVE [facility] Comment on above: Order Comment: No: D o not add to previous drawCriteria for reflexing a culture was met. Urine Culture and sensitivitywill be performed. Performed By: #### 3 6471, 11144 #### [facility] [address] [place] [address], [place] HYALINE CASTS 6-10 Abnormal NONE SEEN [facility] Comment on above: Order Comment: No: D o not add to previous drawCriteria for reflexing a culture was met. Urine Culture and sensitivitywill be performed. Performed By: #### 3 6901, 61110 #### [facility] [address] [place] [address], [place] KETONE Negative Normal NEGATIVE [facility] Comment on above: Order Comment: No: D o not add to previous drawCriteria for reflexing a culture was met. Urine Culture and sensitivitywill be performed. Performed By: #### 3 690, 84921 #### [facility] [address] [place] [address], [facility] LEUK JONN MODERATE Abnormal NEGATIVE [facility] Comment on above: Order Comment: No: D o not add to previous drawCriteria for reflexing a culture was met. Urine Culture and sensitivitywill be performed. Performed By: #### 3 690, 68891 #### [facility] [address] [place] [address], [place] MUCUS THREADS FEW Abnormal NONE SEEN [facility] Comment on above: Order Comment: No: D o not add to previous drawCriteria for reflexing a culture was met. Urine Culture and sensitivitywill be performed. Performed By: #### 3 690, 39815 #### [facility] [address] [place] [address], [facility] Nitrite Ql (U) Negative Normal NEGATIVE [facility] Comment on above: Order Comment: No: D o not add to previous drawCriteria for reflexing a culture was met. Urine Culture and sensitivitywill be performed. Performed By: #### 3 690, 23918 #### [facility] [address] [place] [address], [facility] pH (Bld) 5.0 Normal 5.0-8.0 [facility] Comment on above: Order Comment: No: D o not add to previous drawCriteria for reflexing a culture was met. Urine Culture and sensitivitywill be performed. Performed By: #### 3 690, 12483 #### [facility] [address] [place] [address], [facility] Protein (U) [Mass/Vol] Negative Normal NEGATIVE [facility] Comment on above: Order Comment: No: D o not add to previous drawCriteria for reflexing a culture was met. Urine Culture and sensitivitywill be performed. Performed By: #### 3 168, 82912 #### [facility] [address] [place] [address], [facility] RBC (U) [#/Vol] 6-10 Abnormal NONE SEEN [facility] Comment on above: Order Comment: No: D o not add to previous drawCriteria for reflexing a culture was met. Urine Culture and sensitivitywill be performed. Performed By: #### 3 6901, 96127 #### [facility] [address] [facility] [place] [address], [facility] SPEC GRAV 1.025 High 1.015-1.020 [facility] Comment on above: Order Comment: No: D o not add to previous drawCriteria for reflexing a culture was met. Urine Culture and sensitivitywill be performed. Performed By: #### 3 6901, 52701 #### [facility] [address] [facility] [place] [address], [facility] WBC UA 51-100 Abnormal NONE SEEN [facility] Comment on above: Order Comment: No: D o not add to previous drawCriteria for reflexing a culture was met. Urine Culture and sensitivitywill be performed. Performed By: #### 3 6901, 45537 #### [facility] [address] [facility]. [address] CBC COMPLETE BLOOD COUNTon 1 10-15-2018 Erythrocyte distribution width (RBC) [Ratio] 12.7 % Normal 11.5-15.0 [facility] Comment on above: Order Comment: No: D o not add to previous draw Performed By: #### 5 0608 #### [facility] [address] [facility]. [address] Hematocrit (Bld) [Volume fraction] 31.2 % Low 36.0-45.0 [facility] Comment on above: Order Comment: No: D o not add to previous draw Performed By: #### 5 0608 #### [facility] [address] [place] [address], [facility] Hemoglobin (Bld) [Mass/Vol] 9.8 g/dL Low 12.0-15.0 [facility] Comment on above: Order Comment: No: D o not add to previous draw Performed By: #### 5 0608 #### [facility] [address] MCH (RBC) [Entitic mass] 29.1 pg Normal 27.0-33.0 [facility] Comment on above: Order Comment: No: D o not add to previous draw Performed By: #### 5 0608 #### [facility] [address] MCHC (RBC) [Mass/Vol] 31.4 g/dL Low 32.0-35.0 [facility] Comment on above: Order Comment: No: D o not add to previous draw Performed By: #### 5 0608 #### [facility] [address] [place] [address], [facility] MCV (RBC) [Entitic vol] 92.6 fL Normal 82.0-98.0 [facility] Comment on above: Order Comment: No: D o not add to previous draw Performed By: #### 5 0608 #### [facility] [address] Nucleated RBC/100 WBC (Bld) [Ratio] 0 % Normal 0-0 [facility] Comment on above: Order Comment: No: D o not add to previous draw Performed By: #### 5 0608 #### [facility] [address] [place] [address], [facility] PLAT CNT 340 10*3/uL Normal 150-400 [facility] Comment on above: Order Comment: No: D o not add to previous draw Performed By: #### 5 0608 #### [facility] [address] [place] [address], [facility] RBC (Bld) [#/Vol] 3.37 10*6/uL Low 3.80-5.00 [facility] Comment on above: Order Comment: No: D o not add to previous draw Performed By: #### 5 0608 #### [facility] [address] [facility] [place] [address], [facility] WBC (Bld) [#/Vol] 6.04 10*3/uL Normal 4.00-10.60 [facility] Comment on above: Order Comment: No: D o not add to previous draw Performed By: #### 5 0608 #### [facility] [address] [facility] [address] PROTHROMBIN TIMEon 12 9 INR Coag (PPP) [Relative time] 1.09 {INR} Normal 0.91-1.16 [facility] Comment on above: Order Comment: No: D [...] 6101 #### [facility] [address] PT Coag (PPP) [Time] 14.1 s Normal 12.3-14.8 [facility] Comment on above: Order Comment: No: D o not add to previous draw Result Comment: ALL RESULTS MUST BE INTERPRETED WITH RESPECT TO BLOOD DRAWING ARTIFACT OR DILUTION ERROR OF ANTICOAGULANT AT THE TIME OF SAMPLING. Performed By: #### 5 6101 #### [address] LIVERon 08-14-2019 [facility] Department of Radiology [address] [place] [id number] Patient Name: CONSTANTINO CARDOSO : 1970 Sex: F Age: Race: White Pt. Location: [id number] Patient Status: O Ordered Date: 08/13/2019 8:30:00 PM Completed Date: 08/14/2019 10:25 AM Requesting Provider: LOENA MORTENSEN Attending Provider: LEONA MORTENSEN Report Copy [...] cholecystectomy. Electronically signed by:Orestes Condon. Transcribed by: [email or web address], User Resident: Electronically Signed by: ORESTES CONDON @ 08/14/2019 02:09 PM Normal [facility] Comment on above: Order Comment: R/O S tones BASIC METABOLIC PANELon 12-0 Calcium [Mass/Vol] 9.4 mg/dL Normal 8.6-10.3 [facility] Comment on above: Order Comment: No: D o not add to previous draw Performed By: #### 3 012, [id number] #### [facility] [address] [place] [address], [place] Chloride [Moles/Vol] 105 mmol/L Normal 98-107 [facility] Comment on above: Order Comment: No: D o not add to previous draw Performed By: #### 3 495, [id number] #### [facility] [address] [place] [address], [place] CO2 [Moles/Vol] 26 mmol/L Normal 21-31 [facility] Comment on above: Order Comment: No: D o not add to previous draw Performed By: #### 3 996, 99534 #### [facility] [address] [place] [address], [place] Creatinine [Mass/Vol] 1.03 mg/dL Normal 0.60-1.20 [facility] Comment on above: Order Comment: No: D o not add to previous draw Performed By: #### 3 923, 09643 #### [facility] [address] [place] [address], [place] GFR/1.73 sq M predicted among blacks MDRD (S/P/Bld) [Vol rate/Area] mL/min/{1.73_m2} Normal >60 [facility] Comment on above: Order Comment: No: D o not add to previous draw Performed By: #### 3 677, [id number] #### [facility] [address] [place] [id number], [facility] GFR/1.73 sq M predicted among non-blacks MDRD (S/P/Bld) [Vol rate/Area] 57 ml/min/1.73sq m Abnormal >60 [facility] Comment on above: Order Comment: No: D o not add to previous draw Performed By: #### 3 690, 95432 #### [facility] [address] [place] [address], [facility] Glucose [Mass/Vol] 96 mg/dL Normal 70-100 [facility] Comment on above: Order Comment: No: D o not add to previous draw Performed By: #### 3 690, 06960 #### [facility] [address] [place] [address], [facility] Potassium [Moles/Vol] 4.1 mmol/L Normal 3.5-5.1 [facility] Comment on above: Order Comment: No: D o not add to previous draw Performed By: #### 3 690, [id number] #### [facility] [address] [place] [address], [facility] Sodium [Moles/Vol] 138 mmol/L Normal 136-145 [facility] Comment on above: Order Comment: No: D o not add to previous draw Performed By: #### 3 690, 59275 #### [facility] [address] [place] [address], [facility] Urea nitrogen [Mass/Vol] 16 mg/dL Normal 7-25 [facility] Comment on above: Order Comment: No: D o not add to previous draw Performed By: #### 3 690, 77266 #### [facility] [address] [place] [address], [facility] CBC W/DIFFon 08-13-2019 ABS BASOPHILS 0.0 10*3/uL Normal 0.0-0.2 [facility] Comment on above: Order Comment: No: D o not add to previous draw Performed By: #### 5 0103 #### [facility] [address] [place] [address], [facility] ABS IMM GRANS 0.0 10*3/uL Normal 0.0-0.2 [facility] Comment on above: Order Comment: No: D o not add to previous draw Performed By: #### 5 0103 #### [facility] [address] [place] [address], [facility] ABS NEUTROPHILS 4.0 10*3/uL Normal 1.6-7.6 [facility] Comment on above: Order Comment: No: D o not add to previous draw Performed By: #### 5 0103 #### [facility] [address] [place] [address], [facility] Basophils/100 WBC (Bld) 0.5 % Normal 0.0-1.0 [facility] Comment on above: Order Comment: No: D o not add to previous draw Performed By: #### 5 0103 #### [facility] [address] [facility] [place] [address], [facility] Eosinophils (Bld) [#/Vol] 0.2 10*3/uL Normal 0.0-0.5 [facility] Comment on above: Order Comment: No: D o not add to previous draw Performed By: #### 5 0103 #### [facility] [address] [facility] [place] [address], [facility] Eosinophils/100 WBC (Bld) 3.3 % Normal 0.0-6.0 [facility] Comment on above: Order Comment: No: D o not add to previous draw Performed By: #### 5 0103 #### [facility] [address] [place] [address], [facility] Erythrocyte distribution width (RBC) [Ratio] 12.7 % Normal 11.5-15.0 [facility] Comment on above: Order Comment: No: D o not add to previous draw Performed By: #### 5 0103 #### [facility] [address] [place] [address], [facility] Hematocrit (Bld) [Volume fraction] 33.4 % Low 36.0-45.0 [facility] Comment on above: Order Comment: No: D o not add to previous draw Performed By: #### 5 3 #### [facility] [address] [place] [id number], [facility] Hemoglobin (Bld) [Mass/Vol] 10.5 g/dL Low 12.0-15.0 [facility] Comment on above: Order Comment: No: D o not add to previous draw Performed By: #### 5 3 #### [facility] [address] [place] [address], [facility] IMMATURE GRANS 0.2 % Normal 0.0-1.0 [facility] Comment on above: Order Comment: No: D o not add to previous draw Performed By: #### 5 3 #### [facility] [address] [facility] [place] [address], [facility] Lymphocytes (Bld) [#/Vol] 1.8 10*3/uL Normal 1.2-4.0 [facility] Comment on above: Order Comment: No: D o not add to previous draw Performed By: #### 5 3 #### [facility] [address] [facility] [place] [address], [facility] Lymphocytes/100 WBC (Bld) 28.2 % Normal 20.0-45.0 [facility] Comment on above: Order Comment: No: D o not add to previous draw Performed By: #### 5 3 #### [facility] [address] [facility] [place] [address], [facility] MCH (RBC) [Entitic mass] 28.9 pg Normal 27.0-33.0 [facility] Comment on above: Order Comment: No: D o not add to previous draw Performed By: #### 5 3 #### [facility] [address] [place] [id number], [facility] MCHC (RBC) [Mass/Vol] 31.4 g/dL Low 32.0-35.0 [facility] Comment on above: Order Comment: No: D o not add to previous draw Performed By: #### 5 0103 #### [facility] [address] [place] [id number], [facility] MCV (RBC) [Entitic vol] 92.0 fL Normal 82.0-98.0 [facility] Comment on above: Order Comment: No: D o not add to previous draw Performed By: #### 5 0103 #### [facility] [address] [place] [address], [facility] Monocytes (Bld) [#/Vol] 0.4 10*3/uL Normal 0.1-1.0 [facility] Comment on above: Order Comment: No: D o not add to previous draw Performed By: #### 5 0103 #### [facility] [address] [place] [id number], [facility] MONOS 6.2 % Normal 5.0-12.0 [facility] Comment on above: Order Comment: No: D o not add to previous draw Performed By: #### 5 3 #### [facility] [address] [facility] [place] [address], [facility] Neutrophils/100 WBC (Bld) 61.6 % Normal 40.0-72.0 [facility] Comment on above: Order Comment: No: D o not add to previous draw Performed By: #### 5 0103 #### [facility] [address] [place] [address], [facility] Nucleated RBC/100 WBC (Bld) [Ratio] 0 % Normal 0-0 [facility] Comment on above: Order Comment: No: D o not add to previous draw Performed By: #### 5 0103 #### [facility] [address] [facility] [address], [facility] PLAT CNT 382 10*3/uL Normal 150-400 [facility] Comment on above: Order Comment: No: D o not add to previous draw Performed By: #### 5 0103 #### [facility] [address] [place] [address], [facility] RBC (Bld) [#/Vol] 3.63 10*6/uL Low 3.80-5.00 [facility] Comment on above: Order Comment: No: D o not add to previous draw Performed By: #### 5 0103 #### [facility] [address] [facility] [place] [address], [facility] WBC (Bld) [#/Vol] 6.45 10*3/uL Normal 4.00-10.60 [facility] Comment on above: Order Comment: No: D o not add to previous draw Performed By: #### 5 0103 #### [facility] [address] [facility] [address], [facility] LIPASE BLOODon 08-13-2019 Lipase [Catalytic activity/Vol] 13 Units/L Normal 11-82 [facility] Comment on above: Performed By: #### 3 6901, [id number] #### [facility] [address] [facility] [address], [facility] Vital Signs Date Time Vital Sign [...] Body height 170.18 cm Renny Gan Other [employer] Other 04-21-2023 09:30-0400 Body mass index (BMI) [Ratio] 31.21 kg/m2 Renny Gan Other [employer] Other 04-21-2023 09:30-0400 Body weight 90.4 kg Renny Gan Other [employer] Other 04-21-2023 09:30-0400 Diastolic blood pressure 78 mm[Hg] Renny Gan Other [employer] Other 04-21-2023 09:30-0400 Systolic blood pressure 130 mm[Hg] Renny Gan Other [employer] Other 03-23-2023 07:33-0400 Diastolic blood pressure 80 mm[Hg] LEAD QUALITY TECHNICIAN-C Judi Mikael Work Phone: [facility] 03-23-2023 07:33-0400 Heart rate 81 /min LEAD QUALITY TECHNICIAN-C Judi Mikael Work Phone: [facility] 03-23-2023 07:33-0400 Respiratory rate 14 /min LEAD QUALITY TECHNICIAN-C Judijose manuel Ugaldemer Work Phone: [facility] 03-23-2023 07:33-0400 SaO2% (BldA) [Mass fraction] 95 % LEAD QUALITY TECHNICIAN-C Judi Ugaldemer Work Phone: [facility] 03-23-2023 07:33-0400 Systolic blood pressure 171 mm[Hg] LEAD QUALITY TECHNICIAN-C Judijose manuel Ugaldemer Work Phone: [facility] 03-23-2023 06:20-0400 Body height 170.18 cm LEAD QUALITY TECHNICIAN-C Judi Youssef Work Phone: [facility] 03-23-2023 06:20-0400 Body temperature 97.4 [degF] LEAD QUALITY TECHNICIAN-C Judi Ugaldemer Work Phone: [facility] 03-23-2023 06:20-0400 Body weight 90 kg LEAD QUALITY TECHNICIAN-C Judi Ugaldemer Work Phone: [facility] 02-19-2023 00:53-0400 Body temperature 96.98 [degF] Kaylinn Dokken [facility] 02-19-2023 00:53-0400 Diastolic blood pressure 99 mm[Hg] Kaylinn Dokken [facility] 02-19-2023 00:53-0400 Heart rate 75 /min Kaylinn Dokken [facility] 02-19-2023 00:53-0400 Respiratory rate 16 /min Kaylinn Dokken [facility] 02-19-2023 00:53-0400 SaO2% (BldA) [Mass fraction] 98 % Zabrina Santanaen [facility] 02-19-2023 00:53-0400 Systolic blood pressure 153 mm[Hg] Zabrina Santanaen [facility] 02-15-2023 10:33-0400 Diastolic blood pressure 89 mm[Hg] LEAD QUALITY TECHNICIAN-C Judi Mikael Work Phone: [facility] 02-15-2023 10:33-0400 SaO2% (BldA) [Mass fraction] 100 % LEAD QUALITY TECHNICIAN-C Judi Mikael Work Phone: [facility] 02-15-2023 10:33-0400 Systolic blood pressure 149 mm[Hg] LEAD QUALITY TECHNICIAN-C Judi Mikael Work Phone: [facility] 02-15-2023 10:00-0400 Heart rate 83 /min LEAD QUALITY TECHNICIAN-C Judi Mikael Work Phone: [facility] 02-15-2023 10:00-0400 Respiratory rate 16 /min LEAD QUALITY TECHNICIAN-C Judi Mikael Work Phone: [facility] 02-15-2023 08:06-0400 Body height 170.18 cm LEAD QUALITY TECHNICIAN-C Judi Mikael Work Phone: [facility] 02-15-2023 08:06-0400 Body temperature 97.6 [degF] LEAD QUALITY TECHNICIAN-C Judi Mikael Work Phone: [facility] 02-15-2023 08:06-0400 Body weight 89.2 kg LEAD QUALITY TECHNICIAN-C Judi Mikael Work Phone: [facility] 10-26-2022 08:03-0500 Diastolic blood pressure 87 mm[Hg] LEAD QUALITY TECHNICIAN-C Judi Mikael Work Phone: [facility] 10-26-2022 08:03-0500 Heart rate 70 /min LEAD QUALITY TECHNICIAN-C Judi Mikael Work Phone: [facility] 10-26-2022 08:03-0500 Respiratory rate 18 /min LEAD QUALITY TECHNICIAN-C Judi Youssef Work Phone: [facility] 10-26-2022 08:03-0500 SaO2% (BldA) [Mass fraction] 98 % LEAD QUALITY TECHNICIAN-C Judi Youssef Work Phone: [facility] 10-26-2022 08:03-0500 Systolic blood pressure 161 mm[Hg] LEAD QUALITY TECHNICIAN-C Judi Youssef Work Phone: [facility] 10-26-2022 06:17-0500 Body height 170.18 cm LEAD QUALITY TECHNICIAN-C Judi Youssef Work Phone: [facility] 10-26-2022 06:17-0500 Body temperature 97.2 [degF] LEAD QUALITY TECHNICIAN-C Judi Youssef Work Phone: [facility] 10-26-2022 06:17-0500 Body weight 88.9 kg LEAD QUALITY TECHNICIAN-C Judi Youssef Work Phone: [facility] 07-22-2022 14:34-0500 Diastolic blood pressure 83 mm[Hg] Ospina SALAM [facility] 07-22-2022 14:34-0500 Mean blood pressure 101 mm[Hg] Ospina SALAM [facility] 07-22-2022 14:34-0500 Systolic blood pressure 136 mm[Hg] Ospina SALAM [facility] 07-22-2022 14:30-0500 Blood Pressure Location Ospina SALAM [facility] 07-22-2022 14:30-0500 Diastolic blood pressure 89 mm[Hg] Ospina SALAM [facility] 07-22-2022 14:30-0500 Heart rate 62 /min Ospina SALAM [facility] 07-22-2022 14:30-0500 Respiratory rate 16 /min Anai ROTHMANAM [facility] 07-22-2022 14:30-0500 SaO2% (BldA) [Mass fraction] 98 % Ospina SALAM [facility] 07-22-2022 14:30-0500 Systolic blood pressure 141 mm[Hg] Anai ROTHMANAM [facility] 04-14-2022 14:50-0400 Blood Pressure Location Monique Marquez [facility] 04-14-2022 14:50-0400 Body temperature 97.16 [degF] Monique Reddymetz [facility] 04-14-2022 14:50-0400 Diastolic blood pressure 86 mm[Hg] Monique Reddymetz [facility] 04-14-2022 14:50-0400 Heart rate 72 /min Monique Reddymetz [facility] 04-14-2022 14:50-0400 SaO2% (BldA) [Mass fraction] 97 % Monique Reddymetz [facility] 04-14-2022 14:50-0400 Systolic blood pressure 131 mm[Hg] Monique Jimmy [facility] 01-28-2022 13:36-0400 Blood Pressure Location Moniquejuan luis ReddyJimmy [facility] 01-28-2022 13:36-0400 Body temperature 97.52 [degF] Monique Marquez [facility] 01-28-2022 13:36-0400 Diastolic blood pressure 85 mm[Hg] Monique Reddymetz [facility] 01-28-2022 13:36-0400 Heart rate 73 /min Moniquejuan luis ReddyJimmy [facility] 01-28-2022 13:36-0400 SaO2% (BldA) [Mass fraction] 96 % Monique Marquez [facility] 01-28-2022 13:36-0400 Systolic blood pressure 122 mm[Hg] Monique Reddymetz [facility] 01-11-2022 10:15-0400 Blood Pressure Location Ospina SALAM [facility] 01-11-2022 10:15-0400 Diastolic blood pressure 106 mm[Hg] Ospina SALAM [facility] 01-11-2022 10:15-0400 Heart rate 70 /min Ospina SALAM [facility] 01-11-2022 10:15-0400 Respiratory rate 28 /min Ospina SALAM [facility] 01-11-2022 10:15-0400 SaO2% (BldA) [Mass fraction] 99 % Ospina SALAM [facility] 01-11-2022 10:15-0400 Systolic blood pressure 137 mm[Hg] Ospina SALAM [facility] 01-11-2022 10:05-0400 Blood Pressure Location Ospina SALAM [facility] 01-11-2022 10:05-0400 Diastolic blood pressure 74 mm[Hg] Ospina SALAM [facility] 01-11-2022 10:05-0400 Heart rate 67 /min Ospina SALAM [facility] 01-11-2022 10:05-0400 Respiratory rate 14 /min Ospina SALAM [facility] 01-11-2022 10:05-0400 SaO2% (BldA) [Mass fraction] 97 % Ospina SALAM [facility] 01-11-2022 10:05-0400 Systolic blood pressure 128 mm[Hg] Ospina SALAM [facility] 01-11-2022 10:00-0400 Blood Pressure Location Ospina SALAM [facility] 01-11-2022 10:00-0400 Diastolic blood pressure 79 mm[Hg] Ospina SALAM [facility] 01-11-2022 10:00-0400 Heart rate 66 /min Ospina SALAM [facility] 01-11-2022 10:00-0400 Respiratory rate 16 /min Ospina SALAM [facility] 01-11-2022 10:00-0400 SaO2% (BldA) [Mass fraction] 98 % Ospina SALAM [facility] 01-11-2022 10:00-0400 Systolic blood pressure 134 mm[Hg] Ospina SALAM [facility] 01-11-2022 09:50-0400 Body temperature 97.52 [degF] Ospina SALAM [facility] 01-11-2022 09:45-0400 Respiratory rate 15 /min Ospina SALAM [facility] 01-11-2022 09:18-0400 Body temperature 97.34 [degF] Ospina SALAM [facility] 01-11-2022 09:18-0400 Respiratory rate 20 /min Ospina SALAM [facility] Encounters Encounter Date Encounter Type Care Provider Facility Start: 08-25-2023 End: 08-25-2023 ambulatory JOEL PANCHAL [facility] Facility:[facility] Start: 07-29-2023 Orders Only Evelyn Black RN [facility] eral Surgery Comment on above: Gastroparesis (Prima ry Dx) Start: 07-22-2023 End: 07-22-2023 ambulatory MARQUES BRADLEY Facility:[facility] Start: 07-22-2023 Telephone encounter Evelyn Black RN General Surgery Start: 07-22-2023 End: 07-22-2023 Nutrition therapy Melissa Montalvo RD Work Phone: General Surgery Comment on above: Gastroparesis (Prima ry Dx); Malnutrition of moderate degree (HCC); Gastro-esophageal reflux disease without esophagitis; Overweight (BMI 25.0-29.9); Dietary counseling and surveillance Start: 07-22-2023 End: 07-22-2023 Telemedicine consultation with patient Melissa Montalvo RD Work Phone: [facility] Start: 07-14-2023 End: 07-14-2023 ambulatory MARQUES BRADLEY Facility:[facility] Start: 07-14-2023 End: 07-14-2023 Subsequent hospital visit by physician Marques Bradley MD Work Phone: Gastroenterology Comment on above: Dysphagia, unspecifi ed type [R13.10] Start: 07-13-2023 End: 07-13-2023 ambulatory MARQUES BALLMADAN Facility:[facility] Start: 06-06-2023 End: 06-07-2023 ambulatory Samuel Estrella Facility:[facility] Start: 05-27-2023 Telephone encounter Evelyn Black RN General Surgery Comment on above: Results Start: 05-26-2023 End: 05-26-2023 ambulatory MARQUES Jorge MIRNA Facility:[facility] Start: 05-25-2023 End: 05-25-2023 ambulatory JOEL PANCHAL [facility] Facility:[facility] Start: 05-25-2023 End: 05-25-2023 Nursing evaluation of patient and report Nurse [facility] Work Phone: Gastroenterology Comment on above: Nausea Start: 05-16-2023 Orders Only Evelyn Black RN Gen eral Surgery Comment on above: Nausea (Primary Dx); Dysphagia, unspecified type Start: 05-06-2023 End: 05-07-2023 ambulatory MARQUES BRADLEY Facility:[facility] Start: 05-02-2023 Telephone encounter Evelyn Black RN General Surgery Start: 04-26-2023 Telephone encounter Evelyn Black RN General Surgery Start: 04-21-2023 End: 04-21-2023 ambulatory Renny Gan Other [employer] Other Start: 04-21-2023 Office outpatient vi sit 15 minutes Renny TOUSSAINT G[facility]enter[facility] Start: 04-18-2023 Telephone encounter Evelyn Black RN General Surgery Comment on above: Utilization Review Nurse - O ther Start: 04-07-2023 Telephone encounter Guillermo Martinez DO Work Phone: Gastroenterology Comment on above: Appointment Start: 04-05-2023 End: 04-05-2023 ambulatory Imad Asaad Other [employer] Other Start: 04-05-2023 Telephone encounter Imad Asaad [facility] Start: 03-29-2023 ambulatory Facility:[facility] Start: 03-26-2023 ambulatory Facility:[id number] Start: 03-26-2023 End: 03-31-2023 Evaluation and management of inpatient Renny Gan Facility:[facility] Start: 03-26-2023 ambulatory Facility:[id number] Start: 03-24-2023 End: 03-24-2023 ambulatory Imad Asaad Other [employer] Other Start: 03-24-2023 Telephone encounter Imad Asaad [facility] Start: 03-23-2023 End: 03-23-2023 Emergency department patient visit Judi Youssef Facility:[facility] Start: 03-23-2023 End: 03-23-2023 Emergency department patient visit LEAD QUALITY TECHNICIAN-C Judi Youssef Work Phone: [facility] Work Phone: Start: 03-22-2023 End: 03-22-2023 ambulatory Imad Asaad Other [employer] Other Start: 03-22-2023 Telephone encounter Imad Asaad [facility] Start: 03-09-2023 End: 03-09-2023 ambulatory Imad Asaad Other [employer] Other Start: 03-09-2023 Telephone encounter Imad Asaad [facility] Start: 03-01-2023 End: 03-01-2023 ambulatory Imad Asaad Other [employer] Other Start: 03-01-2023 Telephone encounter Imad Asaad [facility] Start: 02-19-2023 End: 02-19-2023 Emergency department patient visit Zabrina Patton Facility:[facility] Start: 02-19-2023 End: 02-19-2023 Emergency department patient visit Zabrina Patton [facility] Start: 02-15-2023 End: 02-15-2023 Emergency department patient visit LEAD QUALITY TECHNICIAN-C Judi Youssef Work Phone: [facility] Work Phone: Start: 11-30-2022 End: 12-01-2022 ambulatory JUDI YOUSSEF Facility:[facility] Start: 11-27-2022 End: 11-28-2022 ambulatory JUDI YOUSSEF Facility:[facility]1 Start: 11-26-2022 End: 11-26-2022 ambulatory Imad Asaad Other [facility] Other Start: 11-26-2022 Telephone encounter Imad Asaad [facility] Start: 11-04-2022 End: 11-04-2022 ambulatory Judi Youssef Facility:[facility] Start: 11-04-2022 End: 11-04-2022 Admission to same day surgery center LEAD QUALITY TECHNICIAN-C Judi Youssef Work Phone: [facility]-CT Scan [place] Work Phone: Start: 11-04-2022 End: 11-04-2022 ambulatory LEAD QUALITY TECHNICIAN-C Judi Youssef Work Phone: [facility] Work Phone: Start: 11-01-2022 End: 11-02-2022 ambulatory JUDI YOUSSEF Facility:[facility] Start: 10-26-2022 End: 10-26-2022 Emergency department patient visit Judi Youssef Facility:[facility] Start: 10-26-2022 End: 10-26-2022 Emergency department patient visit LEAD QUALITY TECHNICIAN-C Judi Youssef Work Phone: [facility]-Emergency Room Work Phone: Start: 09-23-2022 ambulatory Monique Enrique ty:Lilo GARCIA Start: 09-21-2022 End: 09-21-2022 ambulatory JUDI YOUSSEF Facility:[facility] Start: 09-18-2022 End: 09-18-2022 ambulatory BALTAZAR GEORGES . Facility:[facility] Start: 09-14-2022 End: 09-14-2022 ambulatory EUN WILSON . Facility:[facility] Start: 09-07-2022 End: 09-07-2022 ambulatory Jennie Curtisleo Other [facility] Other Start: 09-07-2022 Telephone encounter Imleo Ayon [facility] Start: 09-06-2022 End: 09-07-2022 ambulatory JUDI YOUSSEF Facility:[facility] Start: 08-20-2022 End: 08-20-2022 ambulatory BALTAZAR GEORGES . Facility:[facility] Start: 08-17-2022 End: 08-18-2022 ambulatory JUDI YOUSSEF Facility:[facility] Start: 08-11-2022 End: 08-12-2022 ambulatory JUDI YOUSSEF Facility:[facility] Start: 08-08-2022 End: 08-08-2022 ambulatory KATHRIN VANCE Facility:[facility] Start: 07-22-2022 End: 07-23-2022 ambulatory [facility] Facility:[facility] Start: 07-22-2022 End: 07-22-2022 Patient encounter procedure [facility] Start: 07-21-2022 End: 07-21-[address] NORA WINN Facility:[facility] Start: 07-15-2022 ambulatory JUDI YOUSSEF Facility: [facility] Start: 07-12-2022 Encounter for genera l adult medical examination without abnormal findings JUID YOUSSEF [facility] Start: 07-08-2022 End: [...] End: 04-29-2022 Lab Drop off Anai REAGAN [facility] Start: 04-14-2022 End: 04-14-2022 Patient encounter procedure Monique Marquez [facility] Start: 03-27-2022 End: 03-30-2022 Evaluation and management of inpatient SHAIKH Juan Luis DAVIS Facility:[facility] Start: 03-01-2022 End: 03-01-2022 Patient encounter procedure Monique Marquez [facility] Start: 02-02-2022 End: 02-02-2022 ambulatory BALTAZAR GEORGES . Facility:[facility] Start: 01-28-2022 End: 01-28-2022 Patient encounter procedure Monique Marquez [facility] Start: 01-11-2022 End: 01-11-2022 Patient encounter procedure Anai REAGAN [facility] Start: 12-24-2021 End: 12-24-2021 Patient encounter procedure JHOANA MELGOZA [facility] Start: 08-13-2019 End: 08-16-2019 Evaluation and management of inpatient LEONA MORTENSEN Facility:[facility] Procedures Date Procedure Procedure Detail Performing Clinician Start: 07-14-2023 Esophagoscp rig transoral hypopharynx crv esoph Evelyn Black RN Start: 05-25-2023 Esophageal motility study w/interp&rpt Evelyn Black RN Start: 03-23-2023 Computed tomography of abdomen and pelvis with contrast LEAD QUALITY TECHNICIAN-Paula Youssef Work Phone: Start: 02-15-2023 Computed tomography of abdomen and pelvis with contrast LEAD QUALITY TECHNICIAN-C Judi Youssef Work Phone: Start: 11-04-2022 CT of small intestine LEAD QUALITY TECHNICIAN-C Judi Youssef Work Phone: Start: 10-26-2022 Computed tomography of abdomen and pelvis with contrast LEAD QUALITY TECHNICIAN-C Judi Youssef Work Phone: Start: 01-11-2022 Esophagogastroduodenoscopy [...] MELGOZA Comment on above: Dr. Mortensen in [place]. Hernia repair JHOANA MELGOZA Hysterectomy JHOANA MELGOZA Plan of Treatment Date Care Activity Detail Author Start: 05-06-2023 Covid-19 Vaccine () Covid-19 Vaccine () [facility] Start: 05-06-2023 Influenza vaccination C [facility] Start: 09-05-2022 DEPRESSION ASSESSMENT DEPRESSION ASS ESSMENT [...] Center Start: [address] COLONOGRAPHY [facility] Start: 2015 DIABETES [facility]CREEN [facility] Start: 2015 Diabetes Screening Diabetes Screenin g [facility] Start: 2015 FECAL OCCULT BLOOD FECAL OCCULT BLOO D [facility] Start: 2015 Lipid 1996 panel - S cristine or Plasma Lipid Screening [facility] Start: 2015 LIPID SCREEN LIPID SCREEN [facility] Start: 2015 SIGMOIDOSCOPY SIGMOIDOSCOPY [facility] Start: 2010 Mammography [facility] Start: 2000 HPV TESTING HPV TESTING [facility] Start: 1991 PAP TESTING PAP TESTING [facility] Start: 1989 Urine microalbumin profile [facility] Start: 1988 HEPATITIS C SCREENING HEPATITIS C SC REENING [facility] Start: 1988 HIV SCREENING HIV SCREENING [facility] Start: 1970 COVID-19 VACCINE (#1) COVID-19 VACCI [...] Gastroparesis 1 Occurrences starting 07/29/2023 until 07/29/2024 [facility] Work Phone: Comment on above: 1 Occurrences starti ng 07/29/2023 until 07/29/2024 End: 05-16-2024 Esophageal motility study w/interp&rpt MANOMETRY ESOPHAGEAL Endoscopy Routine Nausea 1 Occurrences starting 05/16/2023 until 05/16/2024 [facility] Work Phone: Comment on above: 1 Occurrences starti ng 05/16/2023 until 05/16/2024 Esophageal motility study w/interp&rpt MANOMETRY ESOPHAGEAL Endoscopy Routine Nausea 05/25/2023 [facility] Work Phone: End: 06-14-2024 Gastric emptying imaging study NM GASTRIC EMPTYING SOLID Radiology Routine Nausea 1 Occurrences starting 05/16/2023 until 06/14/2024 [facility] Work Phone: Comment on above: 1 Occurrences starti ng 05/16/2023 until 06/14/[address] [facility] Work Phone: Patient referral [facility] Work Phone: SURGICAL PATHOLOGY [facility] Work Phone: Comment on above: Release Upon Orderin g for 1 Occurrences starting 07/14/2023, 1 completed [facility] Immunizations Immunization Date Immunization Notes Care Provider [facility] 06-09-2022 influenza virus vaccine, unspecified formulation Nurse 2 Work Phone: [facility] 03-18-2022 SARS-CoV-2 mRNA (oquxjtimaaj-mmpd-cvi jett) vaccine Ospina Modern Message [facility] 11-06-2021 SARS-CoV-2 (COVID-19 ) mRNA BNT-162b2 vax Ospina SALAM [facility] 05-06-2021 influenza virus vaccine, unspecified formulation JHOANA MELGOZA [facility] 02-26-2021 SARS-CoV-2 (COVID-19 ) mRNA BNT-162b2 vax JHOANA MELGOZA [facility] 02-05-2021 SARS-CoV-2 (COVID-19 ) mRNA BNT-162b2 vax Anai REAGAN [facility] Comment on above: Result Comment: 2021: TPV50 NEGATED: Highlighted row has not occurred!04-14-2022 influenza virus vaccine, unspecified formulation Monique Marquez [facility] Payers Date Payer Category Payer Unknown RINA MARTINEZ SS PPO [id number] 2022-Present [phone] [address] [place] [address] PPO [id number] 2018 Private Health Insurance [id number] 2018 Private Health Insurance [place] [facility] [employer] [id number] 2018-Present [phone] [address] [place] [address] HMO [id number] 1970 Unknown [id number] 2.16.840.1.374246.3.579.2 .647 1970 Unknown [id number] 2.16.840.1.981282.3.579.2 .593 1970 Unknown [id number] 2.16.840.1.589827.3.579.2 .593 1970 Unknown [id number] 2.16.840.1.285202.3.579.2 .593 1970 Unknown [id number] 2.16.840.1.185655.3.579.2 .593 1970 Unknown [id number] 2.16.840.1.174153.3.579.2 .593 1970 Unknown [id number] 2.16.840.1.219319.3.579.2 .593 1970 Unknown [id number] 2.16.840.1.808139.3.579.2 .593 1970 Unknown [id number] 2.16.840.1.587961.3.579.2 .593 1970 Unknown [id number] 2.16.840.1.274181.3.579.2 .593 1970 Unknown [id number] 2.16.840.1.685823.3.579.2 .593 1970 Unknown [id number] 2.16.840.1.186778.3.579.2 .593 1970 Unknown [id number] 2.16.840.1.055856.3.579.2 .593 1970 Unknown [id number] 2.16.840.1.748647.3.579.2 .593 1970 Unknown [id number] 2.16.840.1.409464.3.579.2 .593 1970 Unknown [id number] 2.16.840.1.078835.3.579.2 .593 1970 Unknown [id number] 2.16.840.1.606056.3.579.2 .593 1970 Unknown [id number] 2.16.840.1.573861.3.579.2 .593 1970 Unknown [id number] 2.16.840.1.869026.3.579.2 .593 1970 Unknown [id number] 2.16.840.1.602139.3.579.2 .593 1970 Unknown [id number] 2.16.840.1.669634.3.579.2 .593 1970 Unknown [id number] 2.16.840.1.119912.3.579.2 .356 1970 Unknown [id number] 2.16.840.1.507359.3.579.2 .356 1970 Unknown [id number] 2.16.840.1.945994.3.579.2 .727 1970 Unknown [id number] 2.16.840.1.620251.3.579.2 .727 1970 Unknown [id number] 2.16.840.1.015929.3.579.2 .727 1970 Unknown [id number] 2.16.840.1.139189.3.579.2 .727 1959 Medicaid [id number] 1959 Self-pay [id number] 1959 Unknown [id number] 1959 Unknown [id number] Medicare Medicare [id number] Unknown [id number] 2.16.840.1.367520.3.579.2 .531 Unknown [id number] 2.16.840.1.036839.3.579.2 .531 Unknown [id number] 2.16.840.1.602413.3.579.2 .531 Unknown [id number] 2.16.840.1.297945.3.579.2 .531 Unknown [id number] 2.16.840.1.746421.3.579.2 .531 Worker's Compensation [employer] [facility] [id number] Social History Date Type Detail Facility Start: 12-03-2021 End: 05-06-2023 Tobacco smoking status Ex-smoker (finding) [facility] Start: 08-12-2020 End: 05-06-2023 Sex Assigned At Female [facility] Tobacco smoking status Never [facility] Start: 1970 Sex Assigned At Female F [facility] End: 09-05-2011 History of tobacco use [...] Medical Center Start: 04-28-2018 Alcohol Comment [facility] Start: 1970 Sex Assigned At Not on file C [facility] Start: 07-14-2023 Alcohol intake Ex-drinker (finding) [facility] Functional Status Date Assessment Result Facility 02-19-2023 Functional Status N/A [facility] 07-22-2022 Functional Status N/A [facility] 04-14-2022 Functional Status N/A [facility] Clinical Notes 12-02-2021 to 08-25-2023 Evelyn Black RN - 07/29/2023 11:17 AM ESTPatient InstructionsTelephone Encounter - Evelyn Black RN - 07/22/2023 3:[address] - 07/22/2023 1:15 PM EST Note Date & Type Note Facility 08-25-2023 Note HNO ID: [id number] Author: Ellis Mayberry, DO Service: ? Author [...] August 25, 2023 TIME: 2:59 PM CSN: [id number] [facility] 08-25-2023 Note Q3 Patient Name: Constantino Cardoso Procedure Date: 08/25/2023 2:38 PM Date of : 1970 Admit Type: Outpatient Age: 53 Gender: Female Note Status: Finalized Attending MD: Marques Bradley MD, [id number] Procedure: Upper GI endoscopy Indications: Gastroparesis- for GPOEM Providers: Marques Bradley MD, [facility] (Fellow) Patient Profile: This is a 53 [...] the patient. Procedure Code(s): --- Professional --- 97968 Diagnosis Code(s): --- Professional --- K44.9 Z98.890 CPT copyright 2020 [employer]. All rights reserved. Attending Participation: I personally performed the entire procedure. Scope In: 2:59:10 PM Scope Out: 3:37:20 PM MD Marques Rainey MD 08/25/2023 3:41:00 PM This report has been signed electronically by Marques Bradley MD Number of Addenda: 0 Note Initiated On: 08/25/2023 2:38 PM [facility] 07-29-2023 Note HNO ID: [id number] Author: Evelyn Black RN Service: ? Author Type: Registered Nurse Type: Progress Notes Filed: 07/29/2023 11:18 AM Note Text: e [facility] 07-29-2023 History of Present illness Narrative [...] High Protein, Atkins, Boost Glucose Control, Owyn, Umpire Breakfast Essentials Light Start mixed with Fairlife [...] calories, no carbonation, no caffeine. Protein juarez ([id number], Isopure, Gatorade protein), electrolyte drinks (Gatorade or Powerade zero, sugar free liquid IV or Drip Drop), sugar free jello and sugar free popsicles are also acceptable. Nutrition Monitoring & Evaluation: increase PO intake >75% of estimated needs, weight check and patient update Need for Follow up: based on surgery status documented in this encounter [facility] 07-22-2023 Note HNO ID: [id number] Author: Melissa Montalvo RD Service: ? Author Type: Registered Dietitian Type: Progress Notes Filed: 07/22/2023 4:06 PM Note Text: [facility] Nutrition Therapy: Virtual Consult - Initial Assessment I have communicated my name and active licensure. The patient?s identity and physical location were verified at the time of this visit. Either the patient or their legal sales representative rural power has been informed of the risks and [...] High Protein, Atkins, Boost Glucose Control, Owyn, Umpire Breakfast Essentials Light Start mixed with Fairlife [...] calories, no carbonation, no caffeine. Protein juarez ([id number], Isopure, Gatorade protein), electrolyte drinks (Gatorade or [...] interested in POP procedure for gastroparesis (Dr. Bardley). Height and weight discussed today. 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 [place] body weight: 159 lbs. 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 [facility] 07-22-2023 Miscellaneous Notes BMI SPECIALTY CARE [...] visit. Either the patient or their legal sales representative rural power has been informed of the risks and [...] High Protein, Atkins, Boost Glucose Control, Owyn, Umpire Breakfast Essentials Light Start mixed with Fairlife fat free or 1% milk. -Check www.bariatricfusion.com or www.Golden Gekko.com for additional options. Take small bites, eat slowly, chew food well, and always eat protein first. Separate eating and drinking by 30 min before and after. Aim for >64 oz water/day. Take small sips and avoid straws. Liquids should be sugar-free, no calories, no carbonation, no caffeine. 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 [place] body weight: 159 lbs. 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 Procedure Code(s): --- Professional --- 08133 Diagnosis Code(s): --- Professional --- K44.9 K31.89 Z98.890 R10.13 CPT copyright 2020 [employer]. All rights reserved. Attending Participation: I personally performed the entire procedure. Scope In: 10:40:19 AM Scope Out: 10:50:37 AM MD Marques Rainey MD 07/14/2023 10:53:09 AM This report has been signed electronically by Marques Bradley MD Number of Addenda: 0 Note Initiated On: 07/14/2023 10:24 AM [facility] 07-14-2023 Nurse Note 1121: Dr. Mehrdad [...] [facility] 07[facility]2023 Note HNO ID: [id number] Author: Brennen Shaw, PhD Service: ? Author Type: Physician Type: Progress Notes Filed: 07/19/2023 10:07 AM Note Text: [facility] BARIATRIC SURGERY BEHAVIORAL HEALTH EVALUATION DATE OF SERVICE: July 13, 2023 TIME OF SERVICE: 2:10 PM-3:29 PM COST CENTER: [facility] CPT CODE: - 57803 Brief Emotional/Behavioral Assessment with scoring/documentation - [id number] Virtual Psych Diagnostic Eval BILLING CODE: ENDO PSYL MAIN 14224/Marco DATE OF FIRST SERVICE THIS CYCLE: July 13, 2023 SESSION #: 1 BMI Surgical Pathway Visit type: Bariatric Surgeon Visit I have communicated my name and active licensure. The patient's identity and physical location were verified at the time of this visit. Either the patient or their legal sales representative rural power has been informed of the risks and [...] other people who have undergone the procedure (retirement Specific areas of understanding that should be [...] the binge episod (more content not included)... [facility] 05-27-2023 Miscellaneous Notes BMI SPECIALTY CARE [...] [facility] 05-26[facility]2023 Note HNO ID: [id number] Author: Nabil Bell RT(R) Service: Nuclear Medicine [...] 715 PATIENT DISCHARGED TO: Ambulatory patient, left [place] department area. A Diagnostic radioactive procedure has taken place, with no further precautions necessary other than routine body substance precautions. More information regarding radiation safety can be found using this link: [email or web address]%[email or web address]%20Medicine [email or web address] SIGNATURE: RT Charmaine(R) PATIENT NAME: Constantino Cardoso DATE: May 26, 2023 TIME: 7:17 AM PAGER/CONTACT #: [facility] 05-25-2023 Note HNO ID: [id number] Author: Pedro Gonzalez LPN Service: ? Author Type: LICENSED NURSE Type: Progress Notes Filed: 05/25/2023 4:15 PM Note Text: Name: Constantino Cardoso [facility]#: [id number] Date: 05/25/2023 ESOPHAGEAL MANOMETRY TEST Indication: Nausea [...] the test without difficulty. .Pedro Gonzalez LPN [facility] 05-25-2023 History of Present illness Narrative Name: Constantino Cardoso [facility]#: [id number] Date: 05/25/2023 ESOPHAGEAL MANOMETRY TEST Indication: Nausea [...] [facility]2023 Note HNO ID: [id number] Author: Marques Bradley MD Service: ? Author [...] for internal providers or letter via the [employer] Postal Service for external providers. Chief Complaint: [...] Bradley MD Date: 05/12/2023 Time: 8:15 AM [facility] 05-02-2023 Miscellaneous Notes BMI SPECIALTY CARE COORDINATION TELEPHONE ENCOUNTER Chief complaint & duration dysphagia. Type of procedure: hernia repair hiatal with Dr. MORTENSEN in [place] February of 2019. Sending OP notes Nursing assessment (subjective/objective) . pain in chest area and getting worse Went to [facility] March 2023 who told her she needed a stent in her heart..but her c/o were difficulty swallowing and sent pt home and referred her to [facility] and was there in the hospital for [...] [facility] 04-26-2023 Miscellaneous Notes [facility] COORDINATION TELEPHONE ENCOUNTER Second attempt [...] she is to see Dr. Strong at [facility] Patient is to start dicyclomine 20 mg 4 times daily sent to [facility] today RTO 6 weeks Apr, Dysphagia (ICD-10 - R13.10) [employer] Other 08-14-2023 Miscellaneous Notes* Telephone Encounter - Evelyn Black RN - 04/18/2023 2:13 PM EDT [facility] COORDINATION TELEPHONE ENCOUNTER Contacted pt [...] pain, # 20 tab(s), Refills(s) 0, Pharmacy: [facility]/pharmacy #[id number], 170, cm, 02/19/23 0:56:00 EDT, Height/Length Dosing, 90.2, kg, 02/19/23 0:56:00 EDT, Weight Dosing XR Elbow 3+ Views Right XR Wrist 3+ Views Right [facility]06-17-2023 Hospital Discharge instructions Patient Education 02/19/2023 01:41:18 [...] are safe for you. General instructions Take ppsu-mku-tjzdiey and prescription medicines only as told by [...] provider. Document Revised: 12/29/2020 Document Reviewed: 12/29/2020 [employer] Patient Education 2022 [employer]. Follow Up Care 02/19/2023 00:51:16 With:JUDI YOUSSEF Address: [address] [place] [phone] Business (1) When:02/22/2023 Comments:Take the pain medication as prescribed as needed for pain. Please follow-up with your primary care doctor in the next 2 to 3 days for further evaluation management. Please return to the ED for any new or worsening symptoms or [facility]08-10-2022 Hospital Discharge instructions Patient Education 04/14/2022 15:31:37 [...] water added (diluted fruit juice). Eat bland, zkvy-tz-tadhbd foods in small amounts as you are able. These foods include bananas, applesauce, rice, lean meats, toast, and crackers. Avoid fluids that contain a lot of sugar or caffeine, such as energy drinks, sports drinks, and soda. Avoid alcohol. Avoid spicy or fatty foods. General instructions Take ckiu-qfv-cxorxrs and prescription medicines only as told by your health care provider. Drink enough fluid to keep your urine pale yellow. Wash your hands often using soap and water. If soap and water are not available, use hand portrait painter. Make sure that all people in your [...] eating and drinking to prevent dehydration. Take upop-jpg-yasbvox and prescription medicines only as told by [...] 08/22/2006 Document Revised: 12/14/2019 Document Reviewed: 01/30/2019 [employer] Patient Education 2019 [employer]. Follow Up Care 01/28/2022 13:58:23 With:Monique Marquez CNP Address: When:3 months [facility] 05-26-2022 Hospital Discharge instructions [...] drinks. ?Tomatoes and foods made with tomatoes. ?Dwale or spicy foods. ?Chocolate and peppermint. Do not drink alcohol. General instructions Take tqke-auo-uvzrgxs and prescription medicines only as told by [...] 11/11/2004 Document Revised: 12/18/2018 Document Reviewed: 12/18/2018 [employer] Patient Education 2020 [employer]. Follow Up Care 01/13/2022 12:36:01 With:Monique Marquez CNP Address: When:3 months [facility] 05-09-2022 Hospital Discharge instructions Patient Education 01/11/2022 09:56:58 Endoscopy, Care After Procedure [facility] Endoscopy Care After Procedure Please read [...] 04/05/2005 Document Re-Released: 02/13/2007 [employer] Patient Information [employer]. 01/11/2022 09:56:58 Pearce's Esophagus Pearce's Esophagus Pearce's [...] drinks. ?Tomatoes and foods made with tomatoes. ?Dwale or spicy foods. ?Chocolate and peppermint. Do not drink alcohol. General instructions Take rkbx-psa-qkkmsrp and prescription medicines only as told by [...] 11/11/2004 Document Revised: 12/18/2018 Document Reviewed: 12/18/2018 [employer] Patient Education [employer]. Follow Up Care 12/03/2021 15:32:26 With:Anai REAGAN Address: [address] [place] [address] Business (1) When:1 to 2 weeks Comments:Call for any problems. [facility] [facility] Discharge instructions Follow Up Care 12/02/2021 10:32:32 With:JHOANA MELGOZA PA-C, URL Address: [address] [place] [address] When: Unknown [facility] Evaluation + Plan note Future Appointments Appointment Date:01/11/2022 09:40:00 AM Scheduled Provider: Location:[facility] Appointment Type:Surgery FT [facility] Evaluation + Plan note Future Appointments Appointment Date:04/14/2022 03:00:00 PM Scheduled Provider:Monique Marquez CNP Location:[facility] Appointment Type:[facility] Follow Up Future Scheduled Tests Radiology* NM Gastric Emptying Study 01/28/22 [facility] Evaluation + Plan note Future Appointments Appointment Date:04/14/2022 03:00:00 PM Scheduled Provider:Monique Marquez CNP Location:[facility] Appointment Type:[facility] Appointments Appointment Date:04/20/2022 12:00:00 PM Scheduled Provider: Location:.[facility] Appointment Type:US Abdominal/Pelvis () Appointment Date:06/02/2022 09:45:00 AM Scheduled Provider:Anai REAGAN MD Location:[place] Appointment Type:[facility] Follow Up Future Scheduled Tests Laboratory* Fecal WBC Lactoferrin 04/14/22 * Giardia lamblia, Direct Detection EIA 04/14/22 * O & P Exam, Routine 04/14/22 * Clostridium difficile by PCR 04/14/22 * Enteric Panel by PCR 04/14/22 * CBC w/ Auto Diff 04/14/22 * Comprehensive Metabolic Panel 04/14/22 Radiology* US Abdomen Complete 04/20/22 [facility] Evaluation + Plan note Future Appointments Appointment Date:06/02/2022 09:45:00 AM Scheduled Provider:Anai REAGAN MD Location:[place] Appointment Type:[facility] Follow Up Diagnostic Tests Pending * O & P Exam, Routine 04/29/22 * Giardia lamblia, Direct Detection EIA 04/29/22 [facility] assessment information available [facility] Work Phone: Evaluation noteNo InformationN[facility]m [facility] YuMingle Other Evaluation note* Diagnosis Nausea- Primary Nausea alone Dysphagia, unspecified type documented in this encounter [facility] note* Diagnosis Nausea Nausea alone documented in this encounter [facility] note* Diagnosis Dysphagia, unspecified type Gastroparesis [...] [facility] Diagnosis Gastroparesis- Primary documented in this [facility] Narrative - Reported* Type Description Date Medical History mitral valve prolapse Medical History gallstones Medical History Acid reflux Medical History Hiatal Hernia Medical History headache Surgical History hysterectomy Surgical History cholecystectomy Surgical History hiatal hernia repair Hospitalization History see above Hospitalization History kindey infections hospit alized x3 [employer] Other Hospital course Narrative No data available for this section [facility] [place] [facility] Discharge instructions No data available for this section [facility] Additional Instructions Follow-up with your primary care doctor Return to ED if develop worsening [facility]: Hospital Discharge instructions Additional Instructions If your symptoms return/worsen or you develop any further concerns or symptoms please see your doctor or return to the emergency department immediately. Please be sure to continue follow-up with the gun striper and with your scheduled EGD and further testing.[facility] Work Phone: Progress note No data available for this section [facility] (narrative)* Diagnostic Procedure Only (Routine) - Authorized Specialty Diagnoses / Procedures Referred By Contac t Referred To Contact [facility]LEC[facility] FUNCTIONAL IMAGING Diagnoses Nausea Procedures NM GASTRIC EMPTYING SOLID GASTRIC EMPTYING STUDY Marques Bradley MD [address] [place] [address] Molecular & Functional Imaging [address] [place] [address] Referral ID Status Reason Start Date Expiration Date Visits Requested Visits Authorized [id number] Authorized Auto-Generat ed Referral 05/16/2023 06/14/2024 1 1 * Outpatient Procedure (Routine) - Authorized Specialty Diagnoses / Procedures Referred By Eileen t Referred To Contact [facility] Diagnoses Nausea Procedures MANOMETRY ESOPHAGEAL ESOPHAGEAL MOTILITY STUDY W/INTERP&RPT Marques Bradley MD [address] [place] [address] [address] Referral ID Status Reason Start Date Expiration Date Visits Requested Visits Authorized [id number] Authorized Auto-Generat ed Referral 05/16/2023 05/16/2024 1 1 [facility] for referral (narrative)* Outpatient Procedure (Routine) - Closed Specialty Diagnoses / Procedures [facility] Referred To Contact [facility] Diagnoses Dysphagia, unspecified type Gastroparesis History of Ramiro fundoplication Procedures EGD - THERAPEUTIC, EUS, OR TUBE INTERVENTIONS ESOPHAGOGASTRODUODENOSCOPY TRANSORAL DIAGNOSTIC STOMACH SURGERY PROCEDURE UNLISTED Marques Bradley MD [address] [place] [address] [address] Referral ID Status Reason Start Date Expiration Date V isits Requested Visits Authorized [id number] Closed Auto-Generate d Referral 05/27/2023 05/27/2024 1 1 [facility] for referral (narrative)* Outpatient Procedure (Routine) - Authorized Specialty Diagnoses / Procedures [facility] Referred To Contact [facility] Diagnoses Gastroparesis Procedures EGD - THERAPEUTIC, EUS, OR TUBE INTERVENTIONS ESOPHAGOGASTRODUODENOSC OPY TRANSORAL DIAGNOSTIC STOMACH SURGERY PROCEDURE UNLISTED Marques Bradley MD [address] [place] [address] [address] Referral ID Status Reason Start Date Expiration Date Visits Requested Visits Authorized [id number] Authorized Auto-Generat ed Referral 3 07/29/2024 1 1 [facility] for visit Narrative* Outpatient Procedure (Routine) - Closed Specialty Diagnoses / Procedures Referred By Contsavanah t Referred To Contact [facility] Diagnoses Dysphagia, unspecified type Gastroparesis History of Ramiro fundoplication Procedures EGD - THERAPEUTIC, EUS, OR TUBE INTERVENTIONS ESOPHAGOGASTRODUODENOSCOPY TRANSORAL DIAGNOSTIC STOMACH SURGERY PROCEDURE UNLISTED Marques Bradley MD [address] [place] [address] [facility] [place] [address] [place] [address] Referral ID Status Reason Start Date Expiration Date V isits Requested Visits Authorized [id number] Closed Auto-Generate d Referral 05/27/2023 05/27/2024 1 [...] 018 10:23am Hospital Course Note MR#: [id number] [facility] Pt. Name: Constantino Cardoso Admitted: 08/13/2019 [...] a 49-year-old female, who was transferred to [facility] from [facility] with acute abdominal pain. The pain has started on Tuesday while at work. 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 The pain feels similar to when she was here in April during her stay. During that time, she was told there was nothing left for Dr. Mortensen to do and she has been following up with GI specialist in [place]. She is actually due to have an EGD on August 22, 2019. She has been having nausea, but no vomit (more content not included)... Chief Complaint and Reason for Visit Chief Complaint stomach pain/hx marium Chief Complaint stomach pain/hx marium R10.9 K59.00 Chief Complaint abd pain stomach pian/vomiting Additional Source Comments INFORMATION SOURCE (unrecogn ized section and content) DATE CREATED AUTHOR 06/03/2020 [facility] DATE CREATED AUTHOR AUTHOR'S ORGANIZ ATION 01/17/2023 [facility] DATE CREATED AUTHOR AUTHOR'S ORGANIZ ATION 04/02/2023 [facility] DATE CREATED AUTHOR AUTHOR'S ORGANIZ ATION 05/16/2023 [facility] DATE CREATED AUTHOR AUTHOR'S ORGANIZ ATION 06/11/2023 [facility] DATE CREATED AUTHOR AUTHOR'S ORGANIZ ATION 08/26/2023 [facility] Care Team (unrecognized sect ion and content) Team Status: Inactive Member Role Status Dates Juid Youssef LEAD QUALITY TECHNICIAN-C Primary Care Provider Active Conner Griffith DO [...] Active Pete Thakkar DO Emergency Provider Active Allergist Relationship Specialty Start Date End Date Joel Alejandra PCP - General Family Medicine 04/26/18 Rafa Rangel [address] [place] [phone] Referring General Surgery 04/26/18 Allergist Relationship Specialty Start Date End Date Joel Alejandra PCP - General Family Medicine 04/26/18 Rafa Rangel [address] [place] [address] Referring General Surgery 04/26/18 Allergist Relationship Specialty Start Date End Date NyJoel Onel PCP - General Family Medicine 04/26/18 Rafa Rangel [address] [place] [phone] Referring General Surgery 04/26/18 Allergist Relationship Specialty Start Date End Date Ny Joel Panchal PCP - General Family Medicine 04/26/18 Rafa Rangel [address] [address] [place] [phone] Referring General Surgery 04/26/18 Allergist Relationship Specialty Start Date End Date Ny Joel Panchal PCP - General Family Medicine 04/26/18 Rafa Rangel [address] [place] [address] Referring General Surgery 04/26/18 Allergist Relationship Specialty Start Date End Date Joel Alejandra PCP - General Family Medicine 04/26/18 Rafa Rangel [address] [place] [phone] Referring General Surgery 04/26/18 Allergist Relationship Specialty Start Date End Date DomenicoJoel blanco PCP - General Family Medicine 04/26/18 Rafa Rangel [address] [place] [address] Referring General Surgery 04/26/18 Allergist Relationship Specialty Start Date End Date DomenicoJoel blanco PCP - General Family Medicine 04/26/18 Rafa Rangel [address] [place] [address] [address] [place] [phone] Referring General Surgery 04/26/18 Allergist Relationship Specialty Start Date End Date DomenicoJoel blanco Onel PCP - General Family Medicine 04/26/18 Rafa Rangel [address] [place] [address] [address] [place] [phone] Referring General Surgery 04/26/18 Allergist Relationship Specialty Start Date End Date Ny Joel Panchal PCP - General Family Medicine 04/26/18 Rafa Rangel [address] [facility] [address] [place] [address] Referring General Surgery 04/26/18 Allergist Relationship Specialty Start Date End Date Joel Alejandra PCP - General Family Medicine [facility]/26/18 [facility] [address] [address] Referring General Surgery 04/26/18 Goals (unrecognized section and content) Goals may be documented in a n alternate section REASON FOR VISIT (unrecogniz ed section and content) Reason Comments Appointment Reason Comments Utilization Review Nurse - Other Reason Onset Date Comments Procedure 05/25/2023 Manometry Esopha geal Specialty Diagnoses / Procedures Referred By Contac t Referred To Contact [facility] GIVEN Diagnoses Nausea Procedures MANOMETRY ESOPHAGEAL ESOPHAGEAL MOTILITY STUDY W/INTERP&RPT Marques Bradley MD [address] [place] [address] [facility] [address] [place] [address] Referral ID Status Reason Start Date Expiration Date V isits Requested Visits Authorized [id number] Closed Auto-Generate d Referral 05/16/2023 05/16/2024 1 [...] BE BASED ON THE PRIMARY CLINICAL RECORDS. [facility] [employer] [facility]. provides no warranty or guarantee of the accuracy or completeness of information in this document.
== END 2023-11-28 16:30 | disposition home or self-care (01) ==
LOC: ER 08:29 → MS 11-28 06:59
PROVIDERS: Family Medicine; Internal Medicine; Admitting Provider Family Medicine; Emergency Provider Emergency Medicine; PCP Nurse Practitioner Family; Visit Provider Family Medicine
DX: K56.600 Partial intestinal obstruction, unspecified as to cause (principal); R11.2 Nausea with vomiting, unspecified; K21.9 Gastro-esophageal reflux disease without esophagitis; K31.84 Gastroparesis; D70.9 Neutropenia, unspecified; D50.9 Iron deficiency anemia, unspecified; E44.0 Moderate protein-calorie malnutrition; Z68.28 Body mass index [BMI] 28.0-28.9, adult; E83.42 Hypomagnesemia; F32.A Depression, unspecified; Z90.49 Acquired absence of other specified parts of digestive tract; Z90.710 Acquired absence of both cervix and uterus; Z98.84 Bariatric surgery status; Z98.890 Other specified postprocedural states; Z87.891 Personal history of nicotine dependence; Z79.899 Other long term (current) drug therapy
CPT/HCPCS: 36415; 74176; 74220; 74248; 76120; 80048; 80053; 81001; 83690; 83735; 85025; 87086; 87150; 87186; 93005; 96361; 96365; 96366; 96372; 96375; 96376; 99285; G0378

== ENCOUNTER 2023-12-09 11:28 | Outpatient (OUT) | payer BC, SELFPAY ==
[2023-12-09 12:00] LABS: Bilirubin Urine NEGATIVE (NEGATIVE); Blood Urine NEGATIVE (NEGATIVE); Clarity Urine CLEAR (CLEAR); Color Urine YELLOW (YELLOW); Glucose Urine UA NEGATIVE (NEGATIVE); Ketones Urine NEGATIVE (NEGATIVE); Leukocyte Esterase Urine NEGATIVE (NEGATIVE); Nitrite Urine NEGATIVE (NEGATIVE); Protein Urine NEGATIVE (NEG/TRACE); Specific Gravity Urine >=1.030 (1.005-1.025); Urobilinogen Urine 0.2 EU/dL (0.2-1.0)
[2023-12-09 12:06] LABS: Bacteria Urine TRACE #/HPF (NONE SEEN); Cast Seen? NONE SEEN #/LPF (NONE SEEN); Crystals Seen? None Seen #/HPF (None Seen); Mucus Urine NONE SEEN (NONE SEEN); RBC Urine NONE SEEN #/HPF (0-2); Squamous Epithelial Cell Urine RARE #/LPF (NONE/RARE); WBC Urine NONE SEEN #/HPF (NONE SEEN)
== END 2023-12-09 11:29 | disposition home or self-care (01) ==
LOC: LAB 11:29
PROVIDERS: PCP Nurse Practitioner Family; Visit Provider Family Medicine
DX: K56.609 Unspecified intestinal obstruction, unspecified as to partial versus complete obstruction (principal)
CPT/HCPCS: 81001; 87086; 87150; 87186

== ENCOUNTER 2023-12-15 05:15 | Emergency (ER) | payer BC, SELFPAY ==
[2023-12-15 05:21] VITALS: BP 160/87; PULSE 59; TEMP 36.4; O2SAT 100; BMI 27.4
--- OUTSIDE RECORDS SUMMARY | 2023-12-15 05:29 | XMS_ITS | CCD ---
Author Organization [facility] Care Team Providers Care Clear Coat Sprayer Name Role Phone LEONA MORTENSEN Admitting Unavailable LEONA MORTENSEN Attending Unavailable KEVIN HERRERA Primary Care Unavailable KEVIN HERRERA Referring Unavailable TX Procedure Practitioner Unavailab ORESTES Cruz Surgeon Unavailable JUDI YOUSSEF Primary Care Physician DONI Youssef Primary Care Provider DO Conner Griffith Emergency Provider Jennie Ayon Unavailable MD Jennie Ayon Attending Provider DR JOHNATHAN RUDOLPH Attending Unavailibis RUDOLPH, DR [...] Consulting Unavailable JUDI YOUSSEF Primary Care Unavailable DR NORA WINN Admitting Unavailable GUILLERMO ALLEN Consulting Unavailable SHAIKH Juan Luis DAVIS Admitting Unavailable JUDI YOUSSEF Primary Care Unavailable DR GUILLERMO VANESSA Consulting [...] Unavailable MIKAEL, JUDI Consulting Unavailable LINDA [facility]oussef-C [facility] Primary [facility] Provider DO Conner Griffith Emergency Provider DO Pete Thakkar Emergency Provider [phone] [facility] Primary Care Provider ClaireRafanoemi Unavailable Renny Gan Unavailable Mikael, Judi Joan Primary Care Unavailable Gladis, Conner M Admitting Unavailable Gladis, Conner M Attending Unavailable Mikael, [facility] Primary [facility] Unavailable Asaad, Imad Admitting Unavailable Asaleo, Imad Attending Unavailable Renny Gan Consulting Unavailabl e Mikael, [facility] Primary Care Unavailable Deann Montalvo Attending Unavailable Alahmad, Alaa Admitting Unavailable Mikael, [facility] Primary Care Unavailable GladisErnaed M Admitting Unavailable GladisErna salinased M Attending Unavailable Mikael, [facility] Primary Care Unavailable Pete Thakkar Admitting Unavailable Pete Thakkar Attending Unavailable Samuel Estrella Attending Unavailable Monique Marquez Attending Unavailable Anai REAGAN Attending Unavailable Zabrina Patton Attending Unavailable MARQUES BRADLEY Referring Unavailable [facility] Primary Care Unavailable [facility] Primary Care Unavailable KROHMARQUES Referring Unavailable KROH, MARQUES Patel Attending Unavailable IMER CHERRY Referring Unavailable [facility] Primary Care Unavailable [facility] Primary Care Unavailable KROH, MARQUES D Referring Unavailable KAITLYN TORRES Attending Unavailable KROH, MARQUES Patel Referring Unavailable [facility] Primary Care Unavailable MELISSA MONTALVO Attending Unavailable KROH, MARQUES Patel Referring Unavailable [facility] Primary Care Unavailable SLY HEART Attending Unavailable KROHMARQUES Referring Unavailable [facility] Primary Care Unavailable BRENNEN SHAW Attending Unavailable Allergies Allergy Classification Reported Allergen(s) Allergy Type Date of Onset Reaction(s) Facility (5 sources) cyclobenzaprine; Translations: [CYCLOBENZAPRINE] Drug Allergy 04-28-20 Swelling of Lip/Tongue/Thr oat [facility]ository (6 sources) Penicillins Drug allergy (disorder) 09-02-20 15 Rash [facility] (20 sources) cyclobenzaprine; Translations: [cyclobenzaprine] Drug Allergy 04-28-20 18 Pharyngeal swelling (finding), Swelling [facility] (20 sources) Penicillin; Translations: [penicillin] Drug Allergy 04-28-20 18 Swelling (morphologic abnormality), Swelling [facility] (8 sources) penicillAMINE Drug Allergy rash [facility] Other (2 sources) cyclobenzaprine Drug Allergy 03-23-20 16 [facility] Repository (1 source) traMADol Drug Allergy [facility] Rep[facility] (1 source) traMADol Drug Allergy [facility] (1 source) cyclobenzaprine Drug Allergy 03-23-20 23 [facility] Repository (1 source) Penicillins Drug allergy (disorder) 03-23-20 23 [facility] Repository Medications Current Medications Medication Drug [...] day(s), # 120 cap(s), Refills(s) 11, Pharmacy: [facility]/pharmacy #[id number], 170, cm, 05/05/21 14:15:00 EDT, Height/Length Dosing, 83.1, kg, 05/05/21 14:15:00 EDT, Weight Dosing Start Date: 05/05/21 Stop Date: 04/30/22 Status: Ordered Start: 09-20-2020 take 2 capsules by m outh four times daily Bentyl 10 mg Cap 20 mg = 2 cap(s), Oral, QID, # 20 cap(s), Refills(s) 0, Pharmacy: [facility]/pharmacy #[id number], 170, cm, 09/20/20 16:03:00 EST, Height/Length [...] day(s), # 90 tab(s), Refills(s) 0, Pharmacy: [facility]/pharmacy #[id number], 170, cm, 01/28/22 13:40:00 EDT, Height/Length [...] pain, # 20 tab(s), Refills(s) 0, Pharmacy: [facility]/pharmacy #[id number], 170, cm, 02/19/23 0:56:00 EDT, Height/Length [...] day(s), # 90 cap(s), Refills(s) 1, Pharmacy: [facility]/pharmacy #[id number], 170, cm, 04/14/22 14:53:00 EDT, Height/Length [...] Daily, # 90 cap(s), Refills(s) 3, Pharmacy: [facility]/pharmacy #[id number], 170, cm, 01/11/22 9:17:00 EDT, Height/Length Dosing, 83, kg, 01/11/22 9:17:00 EDT, Weight Dosing Start Date: 01/11/22 Status: Ordered omeprazole 40 mg Cap-DR (1 source) Start: 2 End: 2 take 1 capsule by mouth once daily omeprazole 40 mg Cap-DR 40 mg = 1 cap(s), Oral, Daily, X 90 day(s), # 90 cap(s), Refills(s) 0, Pharmacy: [facility]/pharmacy #[id number], 170, cm, 01/28/22 13:40:00 EDT, Height/Length [...] by mouth twice daily. polyethylene glycol 3350 33154 mg powder for oral solution (1 source) [...] Nausea/Vomiting, # 12 tab(s), Refills(s) 0, Pharmacy: [facility]/pharmacy #[id number], 170, cm, 09/20/20 16:03:00 EST, Height/Length Dosing, 87.5, kg, 09/20/20 16:03:00 EST, Weight Dosing Start Date: 09/20/20 Status: Ordered Completed/Discontinued Medications Medication Drug Class(es) Dates Sig (Normalized) Sig (Original) acetaminophen 325 mg / HYDROcodone bitartrate 5 mg oral tablet (6 sources) Opioid Agonist Start: 06-21-2019 End: 02-15-2023 take 1 tablet by mouth every six hours Hydrocodone-Acetami nophen (Harts) 5-325 mg Tablet Discontinued 1 TAB PO Q6H June 21, 2019 12:00am February 15, 2023 9:46am Start: 11-12-2018 End: 01-30-2019 take 1 tablet by mouth every four to six hours Hydrocodone-Acetaminophen (Harts) 5-325 mg tablet Discontinued 1 TAB PO [...] QID, # 120 tab(s), Refills(s) 0, Pharmacy: [facility]/pharmacy #[id number], 170, cm, 07/22/22 14:33:00 EST, Height/Length [...] 05-10-2019 Chronic Other aftercare (1 source) Other fdc (current) drug therapy; Translations: [OTH [facility] CURRENT DRUG THERAPY] Onset: 11-30-2022 Episodic Other [...] Translations: [Other specified postprocedural states] 07-14-2023 Episodic Residual codes; unclassified (1 source) Pain, unspecified; Translations: [Pain, unspecified] Onset: 12-01-2023 Episodic Screening and history of mental health [...] EVALon 023 ANES POSTPROC EVAL HNO ID: [id number] Author: Carlota Jeffrey MD Service: ? Author Type: Anesthesiologist Type: Anesthesia Postprocedure Evaluation Filed: 08/25/2023 5:35 PM Note Text: POST ANESTHESIA EVALUATION NOTE : 1970 Procedure Summary Date: 08/25/23 Room / Location: Gastroenterology Anesthesia Start: 1444 Anesthesia Stop: 155 Procedure: EGD - THERAPEUTIC, EUS, OR TUBE INTERVENTIONS Diagnosis: Gastroparesis (OTHER) Scheduled Providers: Marques Bradley MD; Carlota Jeffrey MD; Vanessa Mcmillan APRN.FLEET ADMINISTRATOR Responsible Provider: Carlota Jeffrey MD Anesthesia Type: [...] August 25, 2023 TIME: 5:35 PM CSN: [id number] Normal [facility] ANES PRE-OPon 08-25-2023 ANES PRE-OP HNO ID: [id number] Author: Carlota Jeffrey MD Service: ? Author [...] August 25, 2023 TIME: 11:46 AM CSN: [id number] Normal [facility] HISTORY PHYSICALon 3 HISTORY PHYSICAL HNO ID: [id number] Author: Gavi Bourgeois MD Service: General Surgery [...] DATE: August 25, 2023 TIME: 6:57 AM [facility] NURSING PROGon 08-25-2023 NURSING PROG HNO ID: [id number] Author: Melody Walter RN Service: Nursing Author [...] None Electronically Signed By: Melody Walter RN [facility] NURSING PROG HNO ID: [id number] Author: Pamela Osuna RN Service: ? Author [...] By: Pamela Navarro RN In Department: GASTROENTEROLOGY [facility] CONSTANTINO CARDOSO ([id number]) 1970 F Date Time Provider Department 07/22/23 EVELYN BLACK During your visit today, we [...] Encounter Status:Closed by EVELYN BLACK on 07/22/23 [facility] ANES POSTPROC EVALon 023 ANES POSTPROC EVAL HNO ID: [id number] Author: Sly Heart MD Service: ? Author [...] Scheduled Providers: Marques Bradley MD; Amanda Bernard APRN.CRNA; Sly Heart MD Responsible Provider: Sly Heart [...] July 14, 2023 TIME: 12:26 PM CSN: [id number] Normal [facility] ANES PRE-OPon 07-14-2023 ANES PRE-OP HNO ID: [id number] Author: Sly Heart MD Service: ? Author Type: Anesthesiologist Type: Anesthesia Preprocedure Evaluation Filed: 07/14/2023 9:19 AM Note Text: ANESTHESIOLOGY DAY OF SURGERY NOTE : 1970 Procedure Information Date/Time: 07/14/23929 Scheduled providers: Marques Bradley MD; Amanda Bernard APRN.CRNA; Sly Heart MD Procedure: EGD - THERAPEUTIC, [...] July 14, 2023 TIME: 9:11 AM CSN: [id number] Normal [facility] EGD - THERAPEUTIC, EUS, OR T UBE INTERVENTIONSon 07-14-2023 [facility] HISTORY PHYSICALon HISTORY PHYSICAL HNO ID: [id number] Author: Raúl Quintero MD Service: General Surgery [...] medications for this visit. REVIEW OF SYSTEMS: DISK GRINDER: Negative for CVA, Negative for TIA Respiratory: [...] July 14, 2023 TIME: 9:40 AM Normal [facility] NURSING PROGon 07-14-2023 NURSING PROG HNO ID: [id number] Author: Mónica Spaulding RN Service: Nursing Author Type: Registered Nurse Type: Nursing Progress Note Filed: 07/14/2023 11:21 AM Note Text: 1121: Dr. Mehrdad Heart paged : Patient Constantino Cardoso in post bed 10: Complaining of 10/10 abdominal pain (gas), mild nausea. Any further orders? Thanks! Mari Spaulding HOT DOG VENDER Normal [facility] NURSING PROG HNO ID: [id number] Author: Mónica Spaulding RN Service: Nursing Author [...] Signed By: Mónica Spaulding RN BSN Normal [facility] NURSING PROG HNO ID: [id number] Author: Candace Jaramillo RN Service: ? Author [...] Candace Jaramillo RN In Department: GASTROENTEROLOGY Normal [facility] SURGICAL PATHOLOGYon 023 ADDENDUM 1: Normal [facility] Comment on above: Order Comment: Speci men Type: TISSUE SPECIMENOrdering Facility: [facility] Address: [address] [place] [address] Result Comment: Give n the background of chronic gastritis a Helicobacter pylori immunostain was performed on block A and is negative for Helicobacter pylori organisms. AEB 07/20/2023 Laboratory Developed Test (LDT) Disclaimer: Performance characteristics of immunohistochemical, immunofluorescent and chromogenic in-situ hybridization tests have been determined by the performing laboratory within [facility]???s Orestes Li Pathology and Laboratory Medicine Anton ([facility], [facility], [facility], [facility], [facility], [facility], or [facility]) in a manner consistent with CLIA [...] at 9:30 AM Performed By: #### S ####[facility] LABCLIA [id number] [place] [address] [place] CASE REPORT Normal [facility] Comment on above: Order Comment: Speci men Type: TISSUE SPECIMENOrdering Facility: [facility] Address: [address] [place] [address] Result Comment: [facility]urg [facility] Pathology Report Case: [id number] Authorizing Provider: Marques Bradley MD Collected: 07/14/2023 10:42 AM Ordering Location: Gastroenterology Received: 07/14/2023 07:34 PM Pathologist: Marilou Zacarias MD Specimen: STOMACH BIOPSY, R/O H.Pylori Performed By: #### S ####[facility] LABCLIA [id number] [address] [place] DIAGNOSIS COMMENT Immunohistochemical stain for Helicobacter pylori is pending and will be reported as an addendum. Normal [facility] Comment on above: Order Comment: Speci men Type: TISSUE SPECIMENOrdering Facility: [facility] Address: [address] [place] [address] Performed By: #### S ####[facility] LABCLIA [id number] [address] [place] FINAL DIAGNOSIS Normal [facility] Comment on above: Order Comment: Speci men Type: TISSUE SPECIMENOrdering Facility: [facility] Address: [address] [place] [address] Result Comment: Velma scott, biopsy: - Chronic inactive gastritis. See comment. AEB/javi 07/18/2023 Performed By: #### S ####[facility] LABCLIA [id number] [address] [place] FINAL PERFORMING LAB Normal [facility] Comment on above: Order Comment: Speci men Type: TISSUE SPECIMENOrdering Facility: [facility] Address: [address] [place] [address] Result Comment: Diag nostic interpretation performed at [facility], [facility] [place] [address] CLIA# [id number] Honing Machine Operator Production: Maurisio Ritchie M.D. Performed By: #### S ####[facility] LABIA [id number] [address] [place] GROSS DESCRIPTION Normal [facility] Comment on above: Order Comment: Speci men Type: TISSUE SPECIMENOrdering Facility: [facility] Address: [address] [place] [address] Result Comment: A. S TOMACH BIOPSY Received in formalin are two pieces of hager, soft tissue aggregating to 0.5 x 0.2 x 0.2 cm. Totally submitted in one cassette. Two Gross examination performed at [facility], [address] [place] [address] July 14, 2023 11:10 PM Performed By: #### S ####[facility] LABIA [id number] [address] [place] Lipase Levelon 06-06-2023 Lipase [Catalytic activity/Vol] 33 U/L Normal 13-58 [facility] Comment on above: Performed By: #### 2 [id number] ####[facility] [id number] [place] [address] Magda 05-27-2023 [facility] Telephone (GENBMI) CONSTANTINO CARDOSO ([id number]) 1970 F Date Time Provider Department 05/27/23 EVELYN BLACK During your visit today, we recorded the following information about you: Evelyn Black RN 05/27/2023 9:45 AM Signed BMI SPECIALTY [...] EVELYN BLACK on 05/27/[address] [facility] GASTRIC EMPTYING SOLIDon 05-26-2023 NM GASTRIC EMPTYING SOLID * * *Final Report* * * DATE OF EXAM: May 26 2023 11:11AM N 0017 - NM GASTRIC EMPTYING SOLID / PROCEDURE REASON: Nausea [...] RATE OF GASTRIC EMPTYING OF SOLID MEAL. Motorized Squad Sergeant: MELINDA Transcribe Date/Time: May 26 2023 11:18A Dictated by : SILVANO WELSH MD This examination was interpreted and the report reviewed and electronically signed by: SILVANO WELSH MD on May 26 2023 11:18AM EST [id number] Normal [facility] CNNURSEon 05-25-2023 CNNURSE Nurse Visit (GASTMN) CONSTANTINO CARDOSO ([id number]) 1970 F Date Time Provider Department 05/25/23 8:30 AM NURSE GI LAB 2 GASTMN During your visit today, we recorded the following information about you: Pedro Gonzalez LPN 05/25/2023 4:15 PM Signed Name: Constantino Cardoso [facility]#: [id number] Date: 05/25/2023 ESOPHAGEAL MANOMETRY TEST Indication: Nausea [...] .Pedro Gonzalez LPN Referring Provider: MARQUES BRADLEY [[id number]] Allergies As of Date: 05/25/2023 Noted Allergy Reaction FLEXERIL (CYCLOBENZAPRINE) 04/28/2018 7 - Swelling PENICILLIN 04/28/2018 7 - Swelling Date Reviewed: 05/06/2023 Reviewed by: Judy Michaels MA - Fully Assessed Reason for Visit: Procedure [88] Cmt: Manometry Esophageal Visit Diagnosis:Nausea [R11.0] Order(s):MANOMETRY ESOPHAGEAL [83180PJX] Order #: [id number] Prescriptions as of 05/25/2023 - dicyclomine (BENTYL) [...] Encounter Status:Closed by PEDRO GONZALEZ on 05/25/23 [facility] CNP[facility] Telephone (GENBMI) CONSTANTINO CARDOSO ([id number]) 1970 F Date Time Provider Department 05/16/23 [...] Encounter Status:Closed by EVELYN BLACK on 05/16/23 [facility] Yuko 05-06-2023 CNOV Office Visit (GENBMI ) CONSTANTINO CARDOSO ([id number]) 1970 F Date Time Provider Department 05/06/23 [...] for internal providers or letter via the [employer] for external providers. Chief Complaint: [...] Time: 8:15 AM Referring Provider: IMER CHERRY [[id number]] Allergies As of Date: 05/06/2023 Noted Allergy Reaction (more content not included)... Normal [facility] CNPNon 05-02-2023 CNPN Telephone (GENBMI) CONSTANTINO CARDOSO ([id number]) 1970 F Date Time Provider Department 05/02/23 EVELYN BLACKBMI During your visit today, we recorded the following information about you: Evelyn Black, RN 05/04/2023 1:55 PM Addendum BMI SPECIALTY CARE COORDINATION TELEPHONE ENCOUNTER Chief complaint AND duration dysphagia. Type of procedure: hernia repair hiatal with Dr. MORTENSEN in [place] February of 2019. Sending OP notes Nursing assessment (subjective/objective) . pain in chest area and getting worse, hard to breathe c/o nausea and oral intolerance, using miralax for BM Went to [facility] ED March 2023 who told her she needed a stent in her heart..but her c/o were difficulty swallowing and sent pt home and referred her to [facility] and was admitted for almost a [...] HHR a year later @ OSH in [place] Recommendation: MD appt after records obtained, encouraged small meals [...] Encounter Status:Closed by EVELYN BLACK on 05/02/23 [facility] CNPN Telephone (GENBMI) CONSTANTINO CARDOSO ([id number]) 1970 F Date Time Provider Department 04/26/23 [...] Encounter Status:Closed by EVELYN BLACK on 04/26/23 [facility] CNPN Telephone (GENBMI) CONSTANTINO CARDOSO ([id number]) 1970 F Date Time Provider Department 04/18/23 [...] Ma - Fully Assessed 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 [3602] Prescriptions as of 04/18/2023 [...] Encounter Status:Closed by EVELYN BLACK on 04/18/23 [facility] Magda 04-07-2023 CNPN Telephone (GASTSP) CONSTANTINO CARDOSO ([id number]) 1970 F Date Time Provider Department 04/07/23 GUILLERMO MARTINEZ [facility] During your visit today, we recorded [...] Encounter Status:Closed by YANCY LOPEZ on 04/07/23 [facility] NM gastric emptying study 07-27-2023 NM gastric emptying study [facility] Main [place] [address] [place] [address] Nuclear Medicine Report Signed Patient: Constantino Cardoso MR#: [id number] : 1970 Acct:[id number] Age/Sex: 52 / F ADM Date: 03/26/23 Loc: Room: [address] [place] [address] Type: ADM IN Attending Dr: Deann Montalvo [...] Samuel Stone M.D.03/31/2023 10:03 AM Dictation Location: [place] [address] Transcribed By: [facility] 03/31/23 1003 Dictated By: Samuel Stone DO 03/31/23 0956 Signed By: 03/31/23 1003 [facility] Comprehensive Metabolic Pane miranda 03-29-2023 Albumin [Mass/Vol] 3.8 g/dL Normal 3.5-5.7 [facility] Comment on above: Performed By: #### C BCTED, CMP #### [facility] [address] [place] [address] [place] Albumin/Globulin [Mass ratio] 1.4 {ratio} Normal [facility] Comment on above: Performed By: #### C BCNO, CMP #### [facility] [address] [place] [id number] [place] ALP [Catalytic activity/Vol] 102 U/L Normal 34-104 [facility] Comment on above: Performed By: #### C BCNO, CMP #### [facility] [address] [place] [id number] [place] ALT [Catalytic activity/Vol] 10 U/L Normal 7-52 [facility] Comment on above: Performed By: #### C BCNO, CMP #### [facility] [address] [place] [address] [place] Anion gap [Moles/Vol] 10.4 mmol/L Normal 6.0-15.0 [facility] Comment on above: Performed By: #### C BCNO, CMP #### [facility] [address] [place] [address] [place] AST [Catalytic activity/Vol] 14 U/L Normal 13-39 [facility] Comment on above: Performed By: #### C BCNO, CMP #### [facility] [address] [place] [address] [place] Bilirubin [Mass/Vol] 0.5 mg/dL Normal 0.3-1.0 [facility] Comment on above: Performed By: #### C BCNO, CMP #### [facility] [address] [place] [address] [place] Calcium [Mass/Vol] 9.0 mg/dL Normal 8.6-10.3 [facility] Comment on above: Performed By: #### C BCTED, CMP #### [facility] [address] [place] [address] [place] Chloride [Moles/Vol] 103 mmol/L Normal 98-107 [facility] Comment on above: Performed By: #### C BCNO, CMP #### [facility] [address] [place] [address] [place] CO2 [Moles/Vol] 28.4 mmol/L Normal 21.0-31.0 [facility] Comment on above: Performed By: #### C BCNO, CMP #### [facility] [address] [place] [address] [place] Creatinine [Mass/Vol] 0.67 mg/dL Normal 0.60-1.20 [facility] Comment on above: Performed By: #### C BCNO, CMP #### [facility] [address] [place] [address] [place] Creatinine Clr Calc Pharmacy 106.18 Normal [facility] Comment on above: Result Comment: PERF ORMED BY: [facility] [address] [place] [address] PATHOLOGIST ASSISTANT PROFESSOR SURGICAL TECHNOLOGY ROOSEVELT KEYES M.D. Performed By: #### C STELLA, CMP #### [facility] [address] [place] [address] [place] GFR/1.73 sq M.predicted MDRD (S/P/Bld) [Vol rate/Area] mL/min/{1.73_m2} [facility] Comment on above: Performed By: #### C STELLA, CMP #### [facility] [address] Globulin (S) [Mass/Vol] 2.7 g/dL [facility] Comment on above: Performed By: #### C STELLA, CMP #### [address] Glucose [Mass/Vol] 96 mg/dL Normal 70-100 [facility] Comment on above: Result Comment: [facility] Glucose Reference Range is dependent on time and content of last meal. Glucose of more than 200 mg/dL in a nonstressed, ambulatory subject supports the diagnosis of Diabetes Mellitus. ADA recommended reference range Performed By: #### C STELLA, CMP #### [place] [address] [place] Potassium [Moles/Vol] 3.8 mmol/L Normal 3.5-5.1 [facility] Comment on above: Performed By: #### C STELLA, CMP #### [place] [address] [place] Protein [Mass/Vol] 6.5 g/dL Normal 6.4-8.9 [facility] Comment on above: Performed By: #### C STELLA, CMP #### [facility] [address] [place] [address] [place] Sodium [Moles/Vol] 138 mmol/L Normal 136-145 [facility] Comment on above: Performed By: #### C BCTED, CMP #### [facility] [address] [place] [address] [place] Urea nitrogen [Mass/Vol] 8 mg/dL Normal 7-25 [facility] Comment on above: Performed By: #### C BCNO, [facility] #### [facility] [address] [place] [id number] [facility] [place] esophagus ugion 3 [place] esophagus ugi [facility] Main [place] [address] [place] [address] Fluoroscopy Report Signed Patient: Constantino Cardoso MR#: [id number] : 1970 Acct:[id number] Age/Sex: 52 / F ADM Date: 03/26/23 Loc: Room: [address] [place] [address] Type: ADM IN Attending Dr: Deann Montalvo MD Copies to: MD Deann Blue MD Ordering Provider: Renny Gan MD Date of Service: 03/29/23 FL/FL esophagus ugi: NAUSEA DOUBLE CONTRAST UPPER GI SERIES CLINICAL HISTORY: Nausea vomiting. History of Ramiro fundoplication. COMPARISON: None TECHNIQUE: Double contrast upper GI series was performed. Cumulative Air Kerma in mGy: 305.03 mGy FINDINGS: Account Strategist image demonstrates no acute findings. The esophagus [...] Bateman Jr., D.O.03/29/2023 1:23 PM Dictation Location: [place] [address] Transcribed By: [facility] 03/29/23 1323 Dictated By: Tiburcio Bateman Jr, DO 03/29/23 1317 Signed By: 03/29/23 1323 Normal [facility] Hemogram CBC Without Diffon 03-29-2023 Erythrocyte distribution width (RBC) [Ratio] 13.4 % Normal 11.9-15.3 [facility] Comment on above: Performed By: #### C STELLA, CMP #### [facility] [address] Hematocrit (Bld) [Volume fraction] 35.4 % Normal 34.0-46.4 [facility] Comment on above: Performed By: #### C STELLA, CMP #### [address] Hemoglobin (Bld) [Mass/Vol] 12.0 g/dL Normal 11.8-15.4 [facility] Comment on above: Performed By: #### C STELLA, CMP #### [address] MCH (RBC) [Entitic mass] 29.2 pg Normal 24.7-34.3 [facility] Comment on above: Performed By: #### C STELLA, CMP #### [address] MCV (RBC) [Entitic vol] 86.0 fL Normal 80-100 [facility] Comment on above: Performed By: #### C STELLA, CMP #### [address] Mean Corpuscular HGB Conc 33.9 g/dL Normal 32.0-35.0 [facility] Comment on above: Performed By: #### C STELLA, CMP #### [address] Platelet mean volume (Bld) [Entitic vol] 7.6 fL Normal 6.3-10.7 [facility] Comment on above: Result Comment: PERF ORMED BY: [place] [address] PATHOLOGIST ASSISTANT PROFESSOR SURGICAL TECHNOLOGY ROOSEVELT KEYES M.D. Performed By: #### C STELLA, CMP #### [address] Platelets (Bld) [#/Vol] 288 10*3/uL Normal 150-450 [facility] Comment on above: Performed By: #### C STELLA, CMP #### [facility] [address] RBC (Bld) [#/Vol] 4.11 10*6/uL Normal 3.60-5.00 [facility] Comment on above: Performed By: #### C STELLA, CMP #### [facility] [address] [phone] [facility] WBC (Bld) [#/Vol] 6.5 10*3/uL Normal 3.8-11.6 [facility] Comment on above: Performed By: #### C STELLA, CMP #### [facility] [address] XR abdomen min 2Von 03-28-20 XR abdomen min 2V [facility] [place] [address] [place] [address] XRay Report Signed Patient: Constantino Cardoso MR#: [id number] : 1970 Acct:[id number] Age/Sex: 52 / F ADM Date: 03/26/23 Loc: Room: [address] [place] [address] Type: ADM IN Attending Dr: Deann Montalvo [...] Bateman Jr., D.O.03/28/2023 12:24 PM Dictation Location: [place] [address] Transcribed By: [facility] 03/28/23 1224 Dictated By: Tiburcio Bateman Jr, DO 03/28/23 1223 Signed By: 03/28/23 1224 Normal [facility] Complete Blood Count Auto Di ffon 03-27-2023 Basophils (Bld) [#/Vol] 0.0 10*3/uL Normal 0.0-0.2 [facility] Comment on above: Result Comment: PERF ORMED BY: [place] [address] PATHOLOGIST ASSISTANT PROFESSOR SURGICAL TECHNOLOGY ROOSEVELT KEYES M.D. Performed By: #### C BC #### [address] Basophils/100 WBC (Bld) 0.5 % Normal . [facility] Comment on above: Performed By: #### C BC #### [address] Eosinophils (Bld) [#/Vol] 0.2 10*3/uL Normal 0.0-0.45 [facility] Comment on above: Performed By: #### C BC #### [address] Eosinophils/100 WBC (Bld) 4.7 % Normal . [facility] Comment on above: Performed By: #### C BC #### [address] Erythrocyte distribution width (RBC) [Ratio] 13.6 % Normal 11.9-15.3 [facility] Comment on above: Performed By: #### C BC #### [address] Hematocrit (Bld) [Volume fraction] 34.1 % Normal 34.0-46.4 [facility] Comment on above: Performed By: #### C BC #### [address] Hemoglobin (Bld) [Mass/Vol] 11.4 g/dL Low 11.8-15.4 [facility] Comment on above: Performed By: #### C BC #### [address] Lymphocytes (Bld) [#/Vol] 1.3 10*3/uL Normal 1.00-4.8 [facility] Comment on above: Performed By: #### C BC #### [address] Lymphocytes/100 WBC (Bld) 32.8 % Normal . [facility] Comment on above: Performed By: #### C BC #### [address] MCH (RBC) [Entitic mass] 28.9 pg Normal 24.7-34.3 [facility] Comment on above: Performed By: #### C BC #### [address] MCV (RBC) [Entitic vol] 86.0 fL Normal 80-100 [facility] Comment on above: Performed By: #### C BC #### [address] Mean Corpuscular HGB Conc 33.6 g/dL Normal 32.0-35.0 [facility] Comment on above: Performed By: #### C BC #### [address] Monocytes (Bld) [#/Vol] 0.3 10*3/uL Normal 0.0-0.8 [facility] Comment on above: Performed By: #### C BC #### [address] Monocytes/100 WBC (Bld) 7.7 % Normal . [facility] Comment on above: Performed By: #### C BC #### [address] Neutrophils (Bld) [#/Vol] 2.1 10*3/uL Normal 1.8-7.7 [facility] Comment on above: Performed By: #### C BC #### [address] Neutrophils/100 WBC (Bld) 54.3 % Normal . [facility] Comment on above: Performed By: #### C BC #### [facility] [address] NRBC% 0.1 /100{WBC} Normal 0-0.5 [facility] Comment on above: Performed By: #### C BC #### [facility] [address] Platelet mean volume (Bld) [Entitic vol] 7.8 fL Normal 6.3-10.7 [facility] Comment on above: Performed By: #### C BC #### [address] Platelets (Bld) [#/Vol] 291 10*3/uL Normal 150-450 [facility] Comment on above: Performed By: #### C BC #### [address] RBC (Bld) [#/Vol] 3.97 10*6/uL Normal 3.60-5.00 [facility] Comment on above: Performed By: #### C BC #### [address] WBC (Bld) [#/Vol] 3.9 10*3/uL Normal 3.8-11.6 [facility] Comment on above: Performed By: #### C BC #### [address] Comprehensive Metabolic Pane miranda 03-27-2023 Albumin [Mass/Vol] 3.5 g/dL Normal 3.5-5.7 [facility] Comment on above: Performed By: #### H EPATIC, CBC, BMP, LIPASE #### [address] Albumin/Globulin [Mass ratio] 1.4 {ratio} Normal [facility] Comment on above: Performed By: #### H EPATIC, CBC, BMP, LIPASE #### [address] ALP [Catalytic activity/Vol] 91 U/L Normal 34-104 [facility] Comment on above: Performed By: #### H EPATIC, CBC, BMP, LIPASE #### [facility] [address] [place] [address] ALT [Catalytic activity/Vol] 10 U/L Normal 7-52 [facility] Comment on above: Performed By: #### H EPATIC, CBC, BMP, LIPASE #### [facility] [address] [place] [address] Anion gap [Moles/Vol] 6.9 mmol/L Normal 6.0-15.0 [facility] Comment on above: Performed By: #### H EPATIC, CBC, BMP, LIPASE #### [address] AST [Catalytic activity/Vol] 13 U/L Normal 13-39 [facility] Comment on above: Performed By: #### H EPATIC, CBC, BMP, LIPASE #### [address] Bilirubin [Mass/Vol] 0.5 mg/dL Normal 0.3-1.0 [facility] Comment on above: Performed By: #### H EPATIC, CBC, BMP, LIPASE #### [address] Calcium [Mass/Vol] 8.6 mg/dL Normal 8.6-10.3 [facility] Comment on above: Performed By: #### H EPATIC, CBC, BMP, LIPASE #### [address] Chloride [Moles/Vol] 109 mmol/L High 98-107 [facility] Comment on above: Performed By: #### H EPATIC, CBC, BMP, LIPASE #### [facility] [address] [place] [address] CO2 [Moles/Vol] 28.9 mmol/L Normal 21.0-31.0 [facility] [place] Comment on above: Performed By: #### H EPATIC, CBC, BMP, LIPASE #### [address] Creatinine [Mass/Vol] 0.72 mg/dL Normal 0.60-1.20 [facility] Comment on above: Performed By: #### H EPATIC, CBC, BMP, LIPASE #### [facility] [address] Creatinine Clr Calc Pharmacy 97.02 [facility] Comment on above: Performed By: #### H EPATIC, CBC, BMP, LIPASE #### [facility] [address] [place] [address] GFR/1.73 sq M.predicted MDRD (S/P/Bld) [Vol rate/Area] mL/min/{1.73_m2} [facility] Comment on above: Performed By: #### H EPATIC, CBC, BMP, LIPASE #### [address] Globulin (S) [Mass/Vol] 2.5 g/dL [facility] Comment on above: Performed By: #### H EPATIC, CBC, BMP, LIPASE #### [address] Glucose [Mass/Vol] 104 mg/dL High 70-100 [facility] Comment on above: Result Comment: [facility] Glucose Reference Range is dependent on time and content of last meal. Glucose of more than 200 mg/dL in a nonstressed, ambulatory subject supports the diagnosis of Diabetes Mellitus. ADA recommended reference range Performed By: #### H EPATIC, CBC, BMP, LIPASE #### [address] Potassium [Moles/Vol] 3.8 mmol/L Normal 3.5-5.1 [facility] Comment on above: Performed By: #### H EPATIC, CBC, BMP, LIPASE #### [address] Protein [Mass/Vol] 6.0 g/dL Low 6.4-8.9 [facility] Comment on above: Performed By: #### H EPATIC, CBC, BMP, LIPASE #### [place] [id number] [place] Sodium [Moles/Vol] 141 mmol/L Normal 136-145 [facility] Comment on above: Performed By: #### H EPATIC, CBC, BMP, LIPASE #### [facility] [address] [place], [place] [id number] [facility] Urea nitrogen [Mass/Vol] 10 mg/dL Normal 7-25 [facility] Comment on above: Performed By: #### H EPATIC, CBC, BMP, LIPASE #### [place] [id number] [facility] Lipaseon 03-27-2023 Lipase [Catalytic activity/Vol] 14.0 U/L Normal 11.0-82.0 [facility] Comment on above: Result Comment: PERF ORMED BY: [place] [address] PATHOLOGIST ASSISTANT PROFESSOR SURGICAL TECHNOLOGY ROOSEVELT KEYES M.D. Performed By: #### H EPATIC, CBC, BMP, LIPASE #### [address] Magnesiumon 03-27-2023 Magnesium [Mass/Vol] 1.8 mg/dL Low 1.9-2.7 [facility] Comment on above: Performed By: #### H EPATIC, CBC, BMP, LIPASE #### [address] angio abdomen pelvison CT angio abdomen pelvis [facility] [place] [address] [place] [address] CT Scan Report Signed Patient: Constantino Cardoso MR#: [id number] : 1970 Acct:[id number] Age/Sex: 52 / F ADM Date: 03/26/23 Loc: Room: [address] [place] [address] Type: ADM IN Attending Dr: Raf Steward [...] Nora Benites M.D.03/26/2023 9:41 AM Dictation Location: [place] [address] Transcribed By: [facility] 03/26/2341 Dictated By: Nora Benites II, MD 03/26/23 0935 Signed By: 03/26/23 09[address] [facility] [address] angio cheston 03-26-2023 CT angio chest [facility] [place] [address] [place] [address] CT Scan Report Signed Patient: Constantino Cardoso MR#: [id number] : 1970 Acct:[id number] Age/Sex: 52 / F ADM Date: 03/26/23 Loc: Room: 9C9738-6 Type: ADM IN Attending Dr: Raf Steward [...] Nora Benites M.D.03/26/2023 9:34 AM Dictation Location: [place] [address] Transcribed By: [facility] 03/26/23933 Dictated By: Nora Benites II, MD 03/26/23929 Signed By: 03/26/23933 [facility] Comprehensive Metabolic Pane miranda 03-26-2023 Albumin [Mass/Vol] 3.8 g/dL Normal 3.5-5.7 [facility] Comment on above: Performed By: #### P ORS #### [facility] [address] [place] [address] Albumin/Globulin [Mass ratio] 1.6 {ratio} Normal [facility] Comment on above: Performed By: #### P ORS #### [address] ALP [Catalytic activity/Vol] 105 U/L High 34-104 [facility] Comment on above: Performed By: #### P ORS #### [address] ALT [Catalytic activity/Vol] 11 U/L Normal 7-52 [facility] Comment on above: Performed By: #### P ORS #### [address] Anion gap [Moles/Vol] 9.7 mmol/L Normal 6.0-15.0 [facility] Comment on above: Performed By: #### P ORS #### [facility] [address] [place] [address] AST [Catalytic activity/Vol] 14 U/L Normal 13-39 [facility] Comment on above: Performed By: #### P ORS #### [address] Bilirubin [Mass/Vol] 0.4 mg/dL Normal 0.3-1.0 [facility] Comment on above: Performed By: #### P ORS #### [address] Calcium [Mass/Vol] 8.6 mg/dL Normal 8.6-10.3 [facility] Comment on above: Performed By: #### P ORS #### [facility] [address] [place] [address] [place] Chloride [Moles/Vol] 107 mmol/L Normal 98-107 [facility] Comment on above: Performed By: #### P ORS #### [address] CO2 [Moles/Vol] 25.3 mmol/L Normal 21.0-31.0 [facility] [place] Comment on above: Performed By: #### P ORS #### [facility] [address] Creatinine [Mass/Vol] 0.76 mg/dL Normal 0.60-1.20 [facility] Comment on above: Performed By: #### P ORS #### [facility] [address] [place] [address] [place] Creatinine Clr Calc Pharmacy 92.46 [facility] Comment on above: Performed By: #### P ORS #### [place] [address] [place] GFR/1.73 sq M.predicted MDRD (S/P/Bld) [Vol rate/Area] mL/min/{1.73_m2} [facility] Comment on above: Performed By: #### P ORS #### [address] Globulin (S) [Mass/Vol] 2.4 g/dL [facility] Comment on above: Performed By: #### P ORS #### [address] Glucose [Mass/Vol] 122 mg/dL High 70-100 [facility] Comment on above: Result Comment: [place] Glucose Reference Range is dependent on time and content of last meal. Glucose of more than 200 mg/dL in a nonstressed, ambulatory subject supports the diagnosis of Diabetes Mellitus. ADA recommended reference range Performed By: #### P ORS #### [address] Potassium [Moles/Vol] 4.0 mmol/L Normal 3.5-5.1 [facility] Comment on above: Performed By: #### P ORS #### [address] Protein [Mass/Vol] 6.2 g/dL Low 6.4-8.9 [facility] Comment on above: Performed By: #### P ORS #### [place] [address] [place] Sodium [Moles/Vol] 138 mmol/L Normal 136-145 [facility] Comment on above: Performed By: #### P ORS #### [address] Urea nitrogen [Mass/Vol] 12 mg/dL Normal 7-25 [facility] Comment on above: Performed By: #### P ORS #### [address] Drug Screen,Urineon 03-26-20 23 Amphetamine Screen,Urine Negative Normal Negative [facility] Comment on above: Performed By: #### H EPATIC, CBC, BMP, LIPASE #### [address] Barbiturate Screen,Urine Negative Normal Negative [facility] Comment on above: Performed By: #### H EPATIC, CBC, BMP, LIPASE #### [address] Benzodiazepines Screen,Urine Negative Normal Negative [facility] Comment on above: Performed By: #### H EPATIC, CBC, BMP, LIPASE #### [address] Cannabinoid Screen,Urine Negative Normal Negative [facility] Comment on above: Result Comment: Thes e are unconfirmed results and should not be used for legal purposes. Drug Cut-Off Concentration: AMPH 1000 ng/mL HAWA 200 ng/mL ELSA 200 ng/mL COCM 300 ng/mL OP 300 ng/mL PCP 25 ng/mL THC 20 ng/mL PERFORMED BY: [place] [address] PATHOLOGIST ASSISTANT PROFESSOR SURGICAL TECHNOLOGY ROOSEVELT KEYES M.D. Performed By: #### H EPATIC, CBC, BMP, LIPASE #### [address] Cocaine Screen,Urine Negative Normal Negative [facility] Comment on above: Performed By: #### H EPATIC, CBC, BMP, LIPASE #### [address] Opiate Screen,Urine Positive High Negative [facility] Comment on above: Performed By: #### H EPATIC, CBC, BMP, LIPASE #### [facility] [address] Phencyclidine Screen,Urine Negative Normal Negative [facility] Comment on above: Performed By: #### H EPATIC, CBC, BMP, LIPASE #### [facility] [address] echo transthoracicon [facility] echo transthoracic [facility] Main [place] [address] [place] [address] Echocardiogram Signed Patient: Constantino Cardoso MR#: [id number] : 1970 Acct:[id number] Age/Sex: 52 / F ADM Date: 03/26/23 Loc: Room: [address] [place] [address] Type: ADM IN Attending Dr: Raf Steward MD Ordering Provider: Ron Fair MD Date of Service: 03/26/23 [facility] echo transthoracic: chest pain Copies to: MD Holly Lieberman MD, [facility] BSA: 1.9 m2 BP: 155/86 mmHg [...] 03/26/23 0909 Signed By: Holly Castro MD, [facility] 03/26/23 1148 Normal [facility] Hepatic Panelon 03-26-2023 Bilirubin,Indirect 0.3 mg/dL Normal [facility] Comment on above: Performed By: #### P ORS #### [address] Bilirubin.indirect [Mass/Vol] 0.10 mg/dL Normal 0.03-0.18 [facility] Comment on above: Performed By: #### P ORS #### [facility] [address] [place] [address] Lactic Acidon 03-26-2023 Lactate [Moles/Vol] 0.5 mmol/L Normal 0.5-2.2 [facility] Comment on above: Result Comment: PERF ORMED BY: [place] [address] PATHOLOGIST ASSISTANT PROFESSOR SURGICAL TECHNOLOGY ROOSEVELT KEYES M.D. Performed By: #### L ACTIC, HEPATIC, LIPASE, CMP, HS TROP, MG #### [facility] [address] [place] [address] Lipaseon 03-26-2023 Lipase [Catalytic activity/Vol] 8.0 U/L Low 11.0-82.0 [facility] Comment on above: Result Comment: PERF ORMED BY: [place] [address] PATHOLOGIST ASSISTANT PROFESSOR SURGICAL TECHNOLOGY ROOSEVELT KEYES M.D. Performed By: #### P ORS #### [facility] [address] [place] [address] Magnesiumon 03-26-2023 Magnesium [Mass/Vol] 1.8 mg/dL Low 1.9-2.7 [facility] Comment on above: Performed By: #### P ORS #### [facility] [address] [place] [address] [place] Porphyrins,Stoolon 3 Porphyrins,Stool Normal [facility] [place] Comment on above: Result Comment: See report. Scanned copy available in EMR. PERFORMED BY: [place] [address] PATHOLOGIST ASSISTANT PROFESSOR SURGICAL TECHNOLOGY ROOSEVELT KEYES M.D. Performed By: #### P ORS #### [facility] [address] [place] [address] Troponin I High Sensitivityo n 03-26-2023 Troponin I High Sensitivity 13.8 pg/mL Normal 0.0-15.0 [facility] Comment on above: Result Comment: PERF ORMED BY: [place] [address] PATHOLOGIST ASSISTANT PROFESSOR SURGICAL TECHNOLOGY ROOSEVELT KEYES M.D. Performed By: #### H EPATIC, CBC, BMP, LIPASE #### [facility] [address] [place] [address] Troponin I High Sensitivity 14.1 pg/mL Normal 0.0-15.0 [facility] Comment on above: Result Comment: PERF ORMED BY: [place] [address] PATHOLOGIST ASSISTANT PROFESSOR SURGICAL TECHNOLOGY ROOSEVELT KEYES M.D. Performed By: #### P ORS #### [facility] [address] [place] [address] Alanine aminotransferase [En zymatic activity/volume] in Serum or PlasmaOrdered By: Pete Thakkar on 03-23-2023 ALT [Catalytic activity/Vol] 11 U/L 7- [facility] Albumin [Mass/volume] in Ser um or Plasma by Bromocresol green (BCG) dye binding methoOrdered By: Pete Thakkar on 03-23-2023 Albumin BCG dye [Mass/Vol] 4.1 g/dL 3.5-5.7 [facility] Alkaline phosphatase [Enzyma tic activity/volume] in Serum or PlasmaOrdered By: Pete Thakkar on 03-23-2023 ALP [Catalytic activity/Vol] 115 U/L 34-104 [facility] Aspartate aminotransferase [ Enzymatic activity/volume] in Serum or PlasmaOrdered By: Pete Thakkar on 03-23-2023 AST [Catalytic activity/Vol] 15 U/L 13-39 [facility] Automated erythrocytes count in urine sediment (number/area)Ordered By: Pete Thakkar on 03-23-2023 RBC Auto (Urine sed) [#/Area] 0-1 [HPF] 0-4 [facility] Automated leukocytes count i n urine sediment (number/area)Ordered By: Pete Thakkar on 03-23-2023 WBC Auto (Urine sed) [#/Area] 0-1 [HPF] 0-4 [facility] Basic Metabolic Panelon 03-05 Anion gap [Moles/Vol] 10.1 mmol/L Normal 6.0-15.0 [facility] Comment on above: Performed By: #### H EPATIC, CBC, BMP, LIPASE #### [facility] [address] Calcium [Mass/Vol] 9.0 mg/dL Normal 8.6-10.3 [facility] Comment on above: Performed By: #### H EPATIC, CBC, BMP, LIPASE #### [facility] [address] [place] [address] [place] Chloride [Moles/Vol] 111 mmol/L High 98-107 [facility] Comment on above: Performed By: #### H EPATIC, CBC, BMP, LIPASE #### [facility] [address] [place] [address] [place] CO2 [Moles/Vol] 24.5 mmol/L Normal 21.0-31.0 [facility] [place] Comment on above: Performed By: #### H EPATIC, CBC, BMP, LIPASE #### [facility] [address] Creatinine [Mass/Vol] 0.72 mg/dL Normal 0.60-1.20 [facility] Comment on above: Performed By: #### H EPATIC, CBC, BMP, LIPASE #### [facility] [address] Creatinine Clr Calc Pharmacy 105.27 [facility] Comment on above: Performed By: #### H EPATIC, CBC, BMP, LIPASE #### [address] GFR/1.73 sq M.predicted MDRD (S/P/Bld) [Vol rate/Area] mL/min/{1.73_m2} [facility] Comment on above: Performed By: #### H EPATIC, CBC, BMP, LIPASE #### [address] Glucose [Mass/Vol] 79 mg/dL Normal 70-100 [facility] Comment on above: Result Comment: [facility] Glucose Reference Range is dependent on time and content of last meal. Glucose of more than 200 mg/dL in a nonstressed, ambulatory subject supports the diagnosis of Diabetes Mellitus. ADA recommended reference range Performed By: #### H EPATIC, CBC, BMP, LIPASE #### [address] Potassium [Moles/Vol] 3.6 mmol/L Normal 3.5-5.1 [facility] Comment on above: Performed By: #### H EPATIC, CBC, BMP, LIPASE #### [address] Sodium [Moles/Vol] 142 mmol/L Normal 136-145 [facility] Comment on above: Performed By: #### H EPATIC, CBC, BMP, LIPASE #### [address] Urea nitrogen [Mass/Vol] 24 mg/dL Normal 7-25 [facility] Comment on above: Performed By: #### H EPATIC, CBC, BMP, LIPASE #### [address] Basophils Auto (Bld) [#/Vol] Ordered By: Pete Thakkar on 03-23-2023 Basophils (Bld) [#/Vol] 0.1 10*3/uL 0.0-0.2 [facility] Basophils/100 WBC Auto (Bld) Ordered By: Pete Thakkar on 03-23-2023 Basophils/100 WBC (Bld) 1.0 % . [facility] Bilirubin Test strip Ql (U)O rdered By: Pete Thakkar on 03-23-2023 Bilirubin Ql (U) Negative Negative [facility] [place] Bilirubin.direct [Mass/volum e] in Serum or PlasmaOrdered By: Pete Thakkar on 03-23-2023 Bilirubin.direct [Mass/Vol] 0.10 mg/dL 0.03-0.18 [facility] Bilirubin.total [Mass/volume ] in Serum or PlasmaOrdered By: Pete Thakkar on 03-23-2023 Bilirubin [Mass/Vol] 0.3 mg/dL 0.3-1.0 [facility] CT abdomen pelvis w conon CT abdomen pelvis w con [facility] [place] [address] CT Scan Report Signed Patient: Constantino Cardoso MR#: [id number] : 1970 Acct:[id number] Age/Sex: 52 / F ADM Date: 03/23/23 Loc: ER Room: Type: [facility] ER Attending Dr: Copies to: [...] Columba Domínguez M.D.03/23/2023 7:47 AM Dictation Location: [place] [address] Transcribed By: ANDREA 03/23/23 0747 Dictated By: Columba Domínguez MD 03/23/23 0742 Signed By: 03/23/2347 Normal [facility] Calcium [Mass/volume] in Ser um or PlasmaOrdered By: Pete Thakkar on 03-23-2023 Calcium [Mass/Vol] 9.0 mg/dL 8.6-10.3 [facility] Carbon dioxide, total [Moles /volume] in Serum or PlasmaOrdered By: Pete Thakkar on 03-23-2023 CO2 [Moles/Vol] 24.5 mmol/L 21.0-31.0 [facility] [place] Chloride [Moles/volume] in S cristine or PlasmaOrdered By: Pete Thakkar on 03-23-2023 Chloride [Moles/Vol] 111 mmol/L 98-107 [facility] Color Auto (U)Ordered By: Shoaib Thakkar on 03-23-2023 Color (U) Yellow Yellow [facility] Complete Blood Count Auto Di ffon 03-23-2023 Basophils (Bld) [#/Vol] 0.1 10*3/uL Normal 0.0-0.2 [facility] Comment on above: Result Comment: PERF ORMED BY: [place] [address] PATHOLOGIST ASSISTANT PROFESSOR SURGICAL TECHNOLOGY ROOSEVELT KEYES M.D. Performed By: #### H EPATIC, CBC, BMP, LIPASE #### [address] Basophils/100 WBC (Bld) 1.0 % Normal . [facility] Comment on above: Performed By: #### H EPATIC, CBC, BMP, LIPASE #### [address] Eosinophils (Bld) [#/Vol] 0.3 10*3/uL Normal 0.0-0.45 [facility] Comment on above: Performed By: #### H EPATIC, CBC, BMP, LIPASE #### [address] Eosinophils/100 WBC (Bld) 5.0 % Normal . [facility] Comment on above: Performed By: #### H EPATIC, CBC, BMP, LIPASE #### [address] Erythrocyte distribution width (RBC) [Ratio] 13.6 % Normal 11.9-15.3 [facility] Comment on above: Performed By: #### H EPATIC, CBC, BMP, LIPASE #### [address] Hematocrit (Bld) [Volume fraction] 35.7 % Normal 34.0-46.4 [facility] Comment on above: Performed By: #### H EPATIC, CBC, BMP, LIPASE #### [address] Hemoglobin (Bld) [Mass/Vol] 12.0 g/dL Normal 11.8-15.4 [facility] Comment on above: Performed By: #### H EPATIC, CBC, BMP, LIPASE #### [address] Lymphocytes (Bld) [#/Vol] 2.3 10*3/uL Normal 1.00-4.8 [facility] Comment on above: Performed By: #### H EPATIC, CBC, BMP, LIPASE #### [address] Lymphocytes/100 WBC (Bld) 36.1 % Normal . [facility] Comment on above: Performed By: #### H EPATIC, CBC, BMP, LIPASE #### [address] MCH (RBC) [Entitic mass] 29.2 pg Normal 24.7-34.3 [facility] Comment on above: Performed By: #### H EPATIC, CBC, BMP, LIPASE #### [address] MCV (RBC) [Entitic vol] 86.7 fL Normal 80-100 [facility] Comment on above: Performed By: #### H EPATIC, CBC, BMP, LIPASE #### [address] Mean Corpuscular HGB Conc 33.7 g/dL Normal 32.0-35.0 [facility] Comment on above: Performed By: #### H EPATIC, CBC, BMP, LIPASE #### [address] Monocytes (Bld) [#/Vol] 0.5 10*3/uL Normal 0.0-0.8 [facility] Comment on above: Performed By: #### H EPATIC, CBC, BMP, LIPASE #### [address] Monocytes/100 WBC (Bld) 16.44 % Normal 0.00-20.00 [facility] Comment on above: Performed By: #### H EPATIC, CBC, BMP, LIPASE #### [address] Monocytes/100 WBC (Bld) 7.7 % Normal . [facility] Comment on above: Performed By: #### H EPATIC, CBC, BMP, LIPASE #### [address] Neutrophils (Bld) [#/Vol] 3.2 10*3/uL Normal 1.8-7.7 [facility] Comment on above: Performed By: #### H EPATIC, CBC, BMP, LIPASE #### [address] Neutrophils/100 WBC (Bld) 50.2 % Normal . [facility] Comment on above: Performed By: #### H EPATIC, CBC, BMP, LIPASE #### [address] NRBC% 0.1 /100{WBC} Normal 0-0.5 [facility] Comment on above: Performed By: #### H EPATIC, CBC, BMP, LIPASE #### [address] Platelet mean volume (Bld) [Entitic vol] 7.6 fL Normal 6.3-10.7 [facility] Comment on above: Performed By: #### H EPATIC, CBC, BMP, LIPASE #### [address] Platelets (Bld) [#/Vol] 357 10*3/uL Normal 150-450 [facility] Comment on above: Performed By: #### H EPATIC, CBC, BMP, LIPASE #### [address] RBC (Bld) [#/Vol] 4.12 10*6/uL Normal 3.60-5.00 [facility] Comment on above: Performed By: #### H EPATIC, CBC, BMP, LIPASE #### [address] WBC (Bld) [#/Vol] 6.3 10*3/uL Normal 3.8-11.6 [facility] Comment on above: Performed By: #### H EPATIC, CBC, BMP, LIPASE #### [address] Creatinine [Mass/volume] in Serum or PlasmaOrdered By: Pete Thakkar on 07-19-2023 Creatinine [Mass/Vol] 0.72 mg/dL 0.60-1.20 [facility] Dipstick and Microscopicon 0 03-23-2023 Appearance (U) Clear Normal Clear [facility] Comment on above: Order Comment: Name Collection Type:: Clean-Voided Midstream Performed By: #### P ORS #### [facility] [address] [place] [address] [place] Bacteria,Urine 1+ High None Seen [facility] Comment on above: Order Comment: Name Collection Type:: Clean-Voided Midstream Performed By: #### P ORS #### [facility] [address] [place] [address] [place] Bilirubin,Urine Negative Normal Negative [facility] Comment on above: Order Comment: Name Collection Type:: Clean-Voided Midstream Performed By: #### P ORS #### [facility] [address] [place] [address] [place] Color (U) Yellow Normal Yellow [facility] Comment on above: Order Comment: Name Collection Type:: Clean-Voided Midstream Performed By: #### P ORS #### [facility] [address] [place] [id number] [place] Glucose Ql (U) Normal Normal Normal [facility] Comment on above: Order Comment: Name Collection Type:: Clean-Voided Midstream Performed By: #### P ORS #### [facility] [address] [place] [address] [place] Hyaline Casts,Urine None Seen Normal 0-8 [facility] Comment on above: Order Comment: Name Collection Type:: Clean-Voided Midstream Result Comment: PERF ORMED BY: [facility] [address] [place] [id number] PATHOLOGIST ASSISTANT PROFESSOR SURGICAL TECHNOLOGY ROOSEVELT KEYES M.D. Performed By: #### P ORS #### [facility] [address] [place] [address] [place] Ketones Ql (U) Negative Normal Negative [facility] Comment on above: Order Comment: Name Collection Type:: Clean-Voided Midstream Performed By: #### P ORS #### [facility] [address] [place] [address] Leukocyte esterase Test strip Ql (U) Negative Normal Negative [facility] Comment on above: Order Comment: Name Collection Type:: Clean-Voided Midstream Performed By: #### P ORS #### [address] Nitrite,Urine Negative Normal Negative [facility] Comment on above: Order Comment: Name Collection Type:: Clean-Voided Midstream Performed By: #### P ORS #### [address] Occult Blood,Urine Trace High Negative [facility] Comment on above: Order Comment: Name Collection Type:: Clean-Voided Midstream Result Comment: PERF ORMED BY: [place] [address] PATHOLOGIST ASSISTANT PROFESSOR SURGICAL TECHNOLOGY ROOSEVELT KEYES M.D. Performed By: #### P ORS #### [address] pH (U) 5.0 [pH] Normal 5.0-9.0 [facility] Comment on above: Order Comment: Name Collection Type:: Clean-Voided Midstream Performed By: #### P ORS #### [address] Protein,Urine Negative Normal Negative [facility] Comment on above: Order Comment: Name Collection Type:: Clean-Voided Midstream Performed By: #### P ORS #### [address] RBC LM.HPF (Urine sed) [#/Area] 0 /[HPF] Normal 0-4 [facility] Comment on above: Order Comment: Name Collection Type:: Clean-Voided Midstream Performed By: #### P ORS #### [address] Specificy Friedens,Urine 1.048 High 1.001-1.030 [facility] Comment on above: Order Comment: Name Collection Type:: Clean-Voided Midstream Performed By: #### P ORS #### [address] [place] [address] [place] Squamous Epithelial Cell,Urine None Seen Normal 0-2 [facility] Comment on above: Order Comment: Name Collection Type:: Clean-Voided Midstream Performed By: #### P ORS #### [address] Urobilinogen,Urine Normal Normal Normal [facility] Comment on above: Order Comment: Name Collection Type:: Clean-Voided Midstream Performed By: #### P ORS #### [address] WBC LM.HPF (Urine sed) [#/Area] 0 /[HPF] Normal 0-4 [facility] Comment on above: Order Comment: Name Collection Type:: Clean-Voided Midstream Performed By: #### P ORS #### [address] Eosinophils Auto (Bld) [#/Vo l]Ordered By: Pete Thakkar on 03-23-2023 Eosinophils (Bld) [#/Vol] 0.3 10*3/uL 0.0-0.45 [facility] Eosinophils/100 WBC Auto (Bl d)Ordered By: Pete Thakkar on 03-23-2023 Eosinophils/100 WBC (Bld) 5.0 % . [facility] Erythrocyte distribution wid th Auto (RBC) [Ratio]Ordered By: Pete Thakkar on 03-23-2023 Erythrocyte distribution width (RBC) [Ratio] 13.6 % 11.9-15.3 [facility] Globulin Calc (S) [Mass/Vol] Ordered By: Pete Thakkar on 03-23-2023 Globulin (S) [Mass/Vol] 2.9 g/dL [facility] Glucose [Mass/volume] in Ser um or PlasmaOrdered By: Pete Thakkar on 03-23-2023 Glucose [Mass/Vol] 79 mg/dL 70-100 [facility] Comment on above: ADA recommended refe rence rangeRandom Glucose Reference Range is dependent on time and content of last meal. Glucose of more than 200 mg/dL in a nonstressed, ambulatory subject supports the diagnosis of Diabetes Mellitus. Hematocrit Auto (Bld) [Volum e fraction]Ordered By: Pete Thakkar on 03-23-2023 Hematocrit (Bld) [Volume fraction] 35.7 % 34.0-46.4 [facility] Hemoglobin [Mass/volume] in BloodOrdered By: Pete Thakkar on 03-23-2023 Hemoglobin (Bld) [Mass/Vol] 12.0 g/dL 11.8-15.4 [facility] Hepatic Panelon 03-23-2023 Albumin [Mass/Vol] 4.1 g/dL Normal 3.5-5.7 [facility] Comment on above: Performed By: #### H EPATIC, CBC, BMP, LIPASE #### [facility] [address] Albumin/Globulin [Mass ratio] 1.4 {ratio} Normal [facility] Comment on above: Performed By: #### H EPATIC, CBC, BMP, LIPASE #### [facility] [address] ALP [Catalytic activity/Vol] 115 U/L High 34-104 [facility] Comment on above: Performed By: #### H EPATIC, CBC, BMP, LIPASE #### [facility] [address] [place] [id number] [place] ALT [Catalytic activity/Vol] 11 U/L Normal 7-52 [facility] Comment on above: Performed By: #### H EPATIC, CBC, BMP, LIPASE #### [facility] [address] [place] [phone] [place] AST [Catalytic activity/Vol] 15 U/L Normal 13-39 [facility] Comment on above: Performed By: #### H EPATIC, CBC, BMP, LIPASE #### [facility] [address] [place] [id number] [place] Bilirubin [Mass/Vol] 0.3 mg/dL Normal 0.3-1.0 [facility] Comment on above: Performed By: #### H EPATIC, CBC, BMP, LIPASE #### [facility] [address] [place] [address] [place] Bilirubin,Indirect 0.2 mg/dL Normal [facility] Comment on above: Performed By: #### H EPATIC, CBC, BMP, LIPASE #### [facility] [address] Bilirubin.indirect [Mass/Vol] 0.10 mg/dL Normal 0.03-0.18 [facility] Comment on above: Performed By: #### H EPATIC, CBC, BMP, LIPASE #### [address] Globulin (S) [Mass/Vol] 2.9 g/dL Normal [facility] Comment on above: Performed By: #### H EPATIC, CBC, BMP, LIPASE #### [address] Protein [Mass/Vol] 7.0 g/dL Normal 6.4-8.9 [facility] Comment on above: Performed By: #### H EPATIC, CBC, BMP, LIPASE #### [address] Ketones Auto test strip (U) [Mass/Vol]Ordered By: Pete Thakkar on 03-23-2023 Ketones (U) [Mass/Vol] Negative Negative [facility] Laboratory - UrinalysisOrder ed By: Pete Thakkar on 03-23-2023 Hyaline casts LM Ql (Urine sed) None seen [LPF] 0-8 [facility] Leukocytes [#/volume] correc jun for nucleated erythrocytes in Blood by Automated counOrdered By: Pete Thakkar on 03-23-2023 WBC corrected for nucl RBC Auto (Bld) [#/Vol] 6.3 10*3/uL 3.8-11.6 [facility] Lipaseon 03-23-2023 Lipase [Catalytic activity/Vol] 32.0 U/L Normal 11.0-82.0 [facility] Comment on above: Result Comment: PERF ORMED BY: [place] [address] PATHOLOGIST ASSISTANT PROFESSOR SURGICAL TECHNOLOGY ROOSEVELT KEYES M.D. Performed By: #### H EPATIC, CBC, BMP, LIPASE #### [place] [id number] [place] Lipase [Enzymatic activity/v olume] in Serum or PlasmaOrdered By: Pete Thakkar on 03-23-2023 Lipase [Catalytic activity/Vol] 32.0 U/L 11.0-82.0 [facility] Lymphocytes Auto (Bld) [#/Vo l]Ordered By: Pete Thakkar on 03-23-2023 Lymphocytes (Bld) [#/Vol] 2.3 10*3/uL 1.00-4.8 [facility] Lymphocytes/100 WBC Auto (Bl d)Ordered By: Pete Thakkar on 03-23-2023 Lymphocytes/100 WBC (Bld) 36.1 % . [facility] MCH Auto (RBC) [Entitic mass ]Ordered By: Pete Thakkar on 03-23-2023 MCH (RBC) [Entitic mass] 29.2 pg 24.7-34.3 [facility] MCHC Auto (RBC) [Mass/Vol]Or dered By: Pete Thakkar on 03-23-2023 MCHC (RBC) [Mass/Vol] 33.7 g/dL 32.0-35.0 [facility] MCV Auto (RBC) [Entitic vol] Ordered By: Pete Thakkar on 03-23-2023 MCV (RBC) [Entitic vol] 86.7 fL 80-100 [facility] Monocyte distribution width [Entitic volume] in Blood by AutomatedOrdered By: Pete Thakkar on 03-23-2023 Monocyte distribution width Auto (Bld) [Entitic vol] 16.44 % 0.00-20.00 [facility] Monocytes Auto (Bld) [#/Vol] Ordered By: Pete Thakkar on 03-23-2023 Monocytes (Bld) [#/Vol] 0.5 10*3/uL 0.0-0.8 [facility] Monocytes/100 WBC Auto (Bld) Ordered By: Pete Thakkar on 03-23-2023 Monocytes/100 WBC (Bld) 7.7 % . [facility] Neutrophils Auto (Bld) [#/Vo l]Ordered By: Pete Thakkar on 03-23-2023 Neutrophils (Bld) [#/Vol] 3.2 10*3/uL 1.8-7.7 [facility] Neutrophils/100 WBC Auto (Bl d)Ordered By: Pete Thakkar on 03-23-2023 Neutrophils/100 WBC (Bld) 50.2 % . [facility] Nitrite Test strip Ql (U)Ord ered By: Pete Thakkar on 03-23-2023 Nitrite Ql (U) Negative Negative [facility] No Panel InformationOrdered By: Pete Thakkar on 03-23-2023 Estimated GFR (CKD-EPI) > 60.0 mL/Min [facility] Creatinine Clearance (Chem 105.27 [facility] Nucleated erythrocytes [Pres ence] in Blood by Automated countOrdered By: Pete Thakkar on 03-23-2023 Nucleated RBC Auto Ql (Bld) 0.1 /100{WBC} 0-0.5 [facility] Platelet mean volume Auto (B ld) [Entitic vol]Ordered By: Pete Thakkar on 03-23-2023 Platelet mean volume (Bld) [Entitic vol] 7.6 fL 6.3-10.7 [facility] Platelets Auto (Bld) [#/Vol] Ordered By: Pete Thakkar on 03-23-2023 Platelets (Bld) [#/Vol] 357 10*3/uL 150-450 [facility] Potassium [Moles/volume] in Serum or PlasmaOrdered By: Pete Thakkar on 03-23-2023 Potassium [Moles/Vol] 3.6 mmol/L 3.5-5.1 [facility] Protein Auto test strip (U) [Mass/Vol]Ordered By: Pete Thakkar on 03-23-2023 Protein (U) [Mass/Vol] Negative Negative [facility] Protein [Mass/volume] in Ser um or PlasmaOrdered By: Pete Thakkar on 03-23-2023 Protein [Mass/Vol] 7.0 g/dL 6.4-8.9 [facility] RBC Auto (Bld) [#/Vol]Ordere d By: Pete Thakkar on 03-23-2023 RBC (Bld) [#/Vol] 4.12 10*6/uL 3.60-5.00 [facility] Serum or plasma albumin/glob ulin mass ratioOrdered By: Pete Thakkar on 03-23-2023 Albumin/Globulin [Mass ratio] 1.4 {ratio} [facility] Serum or plasma anion gap de terminationOrdered By: Pete Thakkar on 03-23-2023 Anion gap [Moles/Vol] 10.1 mmol/L 6.0-15.0 [facility] Serum or plasma non-glucuron idated bilirubin measurement (mass/volume)Ordered By: Pete Thakkar on 03-23-2023 Bilirubin.indirect [Mass/Vol] 0.2 mg/dL [facility] Sodium [Moles/volume] in Ser um or PlasmaOrdered By: Pete Thakkar on 03-23-2023 Sodium [Moles/Vol] 142 mmol/L 136-145 [facility] Specific gravity Auto test s trip (U) [Rel density]Ordered By: Pete Thakkar on 03-23-2023 Specific gravity (U) [Rel density] 1.048 1.001-1.030 [facility] Squamous epithelial cells de tection in urine sediment by light microscopyOrdered By: Pete Thakkar on 03-23-2023 Epithelial cells.squamous LM Ql (Urine sed) None seen [HPF] 0-2 [facility] Troponin I High Sensitivityo n 03-23-2023 Troponin I High Sensitivity 12.2 pg/mL Normal 0.0-15.0 [facility] Comment on above: Result Comment: PERF ORMED BY: [place] [address] PATHOLOGIST ASSISTANT PROFESSOR SURGICAL TECHNOLOGY ROOSEVELT KEYES M.D. Performed By: #### H S TROP #### [address] Troponin I.cardiac [Mass/vol ume] in Serum or Plasma by Detection limit <= 0.01 ng/Ordered By: Pete Thakkar on 03-23-2023 Troponin I.cardiac DL <= 0.01 ng/mL [Mass/Vol] 12.2 pg/mL 0.0-15.0 [facility] Urea nitrogen [Mass/volume] in Serum or PlasmaOrdered By: Pete Thakkar on 03-23-2023 Urea nitrogen [Mass/Vol] 24 mg/dL 7-25 [facility] Urine bacteria detection by automated methodOrdered By: Pete Thakkar on 03-23-2023 Bacteria Auto Ql (U) 1+ None Seen [facility] Urine clarity by refractomet ry automatedOrdered By: Pete Thakkar on 03-23-2023 Clarity Refractometry automated (U) Clear Clear [facility] Urine glucose measurement by automated test strip (mass/volume)Ordered By: Pete Thakkar on 03-23-2023 Glucose Auto test strip (U) [Mass/Vol] Normal mg/dL Normal [facility] Urine hemoglobin detection b y automated test stripOrdered By: Pete Thakkar on 03-23-2023 Hemoglobin Auto test strip Ql (U) Trace Negative [facility] Urine leukocyte esterase det ection by automated test stripOrdered By: Pete Thakkar on 03-23-2023 Leukocyte esterase Auto test strip Ql (U) Negative Negative [facility] Urobilinogen Auto test strip (U) [Mass/Vol]Ordered By: Pete Thakkar on 03-23-2023 Urobilinogen (U) [Mass/Vol] Normal mg/dL Normal [facility] WBC Auto (Bld) [#/Vol]Ordere d By: Pete Thakkar on 03-23-2023 WBC (Bld) [#/Vol] 6.3 10*3/uL 3.8-11.6 [facility] pH Auto test strip (U)Ordere d By: Pete Thakkar on 03-23-2023 pH (U) 5.0 [pH] 5.0-9.0 [facility] Discharge Instructionson Discharge Instructions [id number]#[id number]:127 [facility] Comment on above: Other Comment: wrong folder Prescriptions/Work Noteson 0 03-03-2023 Prescriptions/Work Notes [id number]#[id number]:127 [facility] Consent for Treatmenton 02-03 Consent for Treatment [id number]#[id number]:127 [facility] Discharge Instructionson Discharge Instructions [id number]#[id number]:127 Normal [facility] ED Clinical Summaryon 2022 ED Clinical Summary (Inserted Image. Kristin ble to display) [address] [address] ED Clinical Summary Person Information Name: CONSTANTINO CARDOSO [place] Age: 52 Years : 1970 Sex: Female Language: Telugu PCP: JUDI YOUSSEF CNP Marital Status: Phone: [phone] MRN: Visit Id: Visit Reason: Wrist pain-swelling; [...] 02/19/2023 01:41:18 02/19/2023 01:41:18 ADDRESS: [address] [facility] [place] [phone] PHYS DOC NOTES: MEDICAL INFORMATION: Prescriptions Given: New Medications [id number], [address], [place] [id number], [phone] naproxen (Naprosyn 500 mg Tab) 1 Tablets [...] With: Address: When: JUDI YOUSSEF [address] [place] [address] [phone] Business (1) In 3 days 02/22/2023 Comments: Take the pain medication as prescribed as needed for pain. Please follow-up with your primary care doctor in the next 2 to 3 days for further evaluation management. Please return to the ED for any new or worsening symptoms or DIAGNOSIS: Right wrist sprain Normal [facility] ED Note-Physicianon 02-20-20 ED Note-Physician Basic Information Time Seen: Zabrina Patton DO 02/19/2023 00:51 Chief Complaint states fell yesterday injuring right wrist. was seen at [facility]. splint in place. states pain radiating up the arm. taking motrin and tylenol History of Present Illness Patient is a 52-year-old female with past medical history of hypertension gastroparesis presenting to the ED for evaluation of right arm pain. Patient had a fall yesterday was seen at [place] had x-rays and was told it was [...] and Complexity of Problems Differential Diagnosis: [] [facility] Data External documents reviewed: [] [...] and elbow are obtained. Patient is given [place] in the ED for pain. X-rays do [...] pain, # 20 tab(s), Refills(s) 0, Pharmacy: [id number], 170, cm, 02/19/23 0:56:00 EDT, Height/Length Dosing, 90.2, kg, 02/19/23 0:56:00 EDT, Weight Dosing XR Elbow 3+ Views Right XR Wrist 3+ Views Right Medications Administered Given Harts 5/325 Tab, 1 tab(s), Oral Disposition Plan Discharge Prescription List Prescriptions Naprosyn 500 mg Tab, 500 mg= 1 tab(s), Oral, BID, PRN Follow-up With When Contact Information JUDI YOUSSEF In 3 days 02/22/2023 EDT [address] [place] [address]- [phone] Business (1) Additional Instructions: Take the pain [...] (03/02/2019), Cholecystectomy, Hernia repair, Hysterectomy. Medications Inpatient Harts 5/325 Tab, 1 tab(s), Oral, Once Home albuterol HFA 90 mcg/inh MDI, 2 pu (more content not included)... Normal [facility] Comment on above: Result Comment: Elec [...] safe for you. General instructions ? Take wuke-apl-izffsos and prescription medicines only as told by [...] it gets (more content not included)... Normal [facility] ED Patient Summaryon 023 ED Patient Summary (Inserted Image. Kristin ble to display) [address] [address] Patient Discharge Instructions Person Information Name: CONSTANTINO CARDOSO Age: 52 Years Arrival Date: 02/19/2023 00:48:45 Discharge Diagnosis: Right wrist sprain Primary Care Physician: JUDI YOUSSEF CNP Provider Information Primary Provider: Zabrina Patton DO [facility] Tutor:None The exam and treatment you received in the Emergency Department were for an urgent problem and are not intended as complete care. It is important that you follow up with a doctor, nurse practitioner, or physician?s bilingual administrative assistant for ongoing care. If your [...] When: JUDI YOUSSEF [address] [place] [address] [phone] Business (1) In 3 days 02/22/2023 Comments: [...] opioids can be used to help relieve ueostbfl-hy-ycoqoz pain and are often prescribed following a [...] the ris (more content not included)... Normal [facility] XR Elbow 3+ Views Righton XR [...] REZA Technologist: FERNANDO Technical Comments Radiation Dose: Kar in mGy = na DAP = na Normal [facility] XR Wrist 3+ Views Righton XR [...] tissues are within normal limits. Ordering Provider: Dokken, Kaylinn FINAL REPORT Dictated: 02/19/2023 7:45 am Orestes Bell DO Signed (Electronic Signature): 02/19/2023 7:45 am Signed by: Orestes Bell DO Transcribed by: REZA Technologist: FERNANDO Technical Comments Radiation Dose: Ka,r in mGy = na DAP = na Normal [facility] Activated partial thrombopla stin time (aPTT) in platelet poor plasma by coagulation aOrdered By: Conner Griffith on 02-15-2023 aPTT Coag (PPP) [Time] 37.0 s 25.1-36.5 [facility] Alanine aminotransferase [En zymatic activity/volume] in Serum or PlasmaOrdered By: Conner Griffith on 02-15-2023 ALT [Catalytic activity/Vol] 13 U/L 7-52 [facility] Albumin [Mass/volume] in Ser um or Plasma by Bromocresol green (BCG) dye binding methoOrdered By: Conner Griffith on 02-15-2023 Albumin BCG dye [Mass/Vol] 4.3 g/dL 3.5-5.7 [facility] Alkaline phosphatase [Enzyma tic activity/volume] in Serum or PlasmaOrdered By: Conner Griffith on 02-15-2023 ALP [Catalytic activity/Vol] 124 U/L 34-104 [facility] Aspartate aminotransferase [ Enzymatic activity/volume] in Serum or PlasmaOrdered By: Conner Griffith on 02-15-2023 AST [Catalytic activity/Vol] 15 U/L 13-39 [facility] Basic Metabolic Panelon 02-03 Anion gap [Moles/Vol] 12.6 mmol/L Normal 6.0-15.0 [facility] Comment on above: Performed By: #### H EPATIC, CBC, BMP, LIPASE #### [facility] [address] Calcium [Mass/Vol] 9.3 mg/dL Normal 8.6-10.3 [facility] Comment on above: Performed By: #### H EPATIC, CBC, BMP, LIPASE #### [facility] [address] [place] [address] [place] Chloride [Moles/Vol] 106 mmol/L Normal 98-107 [facility] Comment on above: Performed By: #### H EPATIC, CBC, BMP, LIPASE #### [address] CO2 [Moles/Vol] 25.3 mmol/L Normal 21.0-31.0 [facility] [place] Comment on above: Performed By: #### H EPATIC, CBC, BMP, LIPASE #### [address] Creatinine [Mass/Vol] 0.77 mg/dL Normal 0.60-1.20 [facility] Comment on above: Performed By: #### H EPATIC, CBC, BMP, LIPASE #### [address] Creatinine Clr Calc Pharmacy 98.01 [facility] Comment on above: Performed By: #### H EPATIC, CBC, BMP, LIPASE #### [address] GFR/1.73 sq M.predicted MDRD (S/P/Bld) [Vol rate/Area] mL/min/{1.73_m2} [facility] Comment on above: Performed By: #### H EPATIC, CBC, BMP, LIPASE #### [address] Glucose [Mass/Vol] 94 mg/dL Normal 70-100 [facility] Comment on above: Result Comment: [place] Glucose Reference Range is dependent on time and content of last meal. Glucose of more than 200 mg/dL in a nonstressed, ambulatory subject supports the diagnosis of Diabetes Mellitus. ADA recommended reference range Performed By: #### H EPATIC, CBC, BMP, LIPASE #### [address] Potassium [Moles/Vol] 3.9 mmol/L Normal 3.5-5.1 [facility] Comment on above: Performed By: #### H EPATIC, CBC, BMP, LIPASE #### [address] [place] [address] [place] Sodium [Moles/Vol] 140 mmol/L Normal 136-145 [facility] Comment on above: Performed By: #### H EPATIC, CBC, BMP, LIPASE #### [facility] [address] [place] [address] Urea nitrogen [Mass/Vol] 14 mg/dL Normal 7-25 [facility] Comment on above: Performed By: #### H EPATIC, CBC, BMP, LIPASE #### [facility] [address] [place] [address] Basophils Auto (Bld) [#/Vol] Ordered By: Conner Griffith on 02-15-2023 Basophils (Bld) [#/Vol] 0.0 10*3/uL 0.0-0.2 [facility] Basophils/100 WBC Auto (Bld) Ordered By: Conner Griffith on 02-15-2023 Basophils/100 WBC (Bld) 0.6 % . [facility] Bilirubin.direct [Mass/volum e] in Serum or PlasmaOrdered By: Conner Griffith on 02-15-2023 Bilirubin.direct [Mass/Vol] 0.00 mg/dL 0.03-0.18 [facility] Comment on above: If the DBIL is less than 0.1, IBIL is not able to becalculated. Bilirubin.total [Mass/volume ] in Serum or PlasmaOrdered By: Conner Griffith on 02-15-2023 Bilirubin [Mass/Vol] 0.4 mg/dL 0.3-1.0 [facility] CT abdomen pelvis w conon CT abdomen pelvis w con [facility] Main [place] [address] [place] [address] CT Scan Report Signed Patient: Constantino Cardoso MR#: [id number] : 1970 Acct:[id number] Age/Sex: 52 / F ADM Date: 02/15/23 Loc: ER Room: Type: [facility] ER Attending Dr: Copies to: [...] Columba Domínguez M.D.02/15/2023 9:56 AM Dictation Location: [place] [address] Transcribed By: [facility] 02/15/23 0956 Dictated By: Columba Domínguez MD 02/15/23 0943 Signed By: 02/15/23 0956 [facility] Calcium [Mass/volume] in Ser um or PlasmaOrdered By: Conner Griffith on 02-15-2023 Calcium [Mass/Vol] 9.3 mg/dL 8.6-10.3 [facility] Carbon dioxide, total [Moles /volume] in Serum or PlasmaOrdered By: Conner Griffith on 02-15-2023 CO2 [Moles/Vol] 25.3 mmol/L 21.0-31.0 [facility] [place] Chloride [Moles/volume] in S cristine or PlasmaOrdered By: Conner Griffith on 02-15-2023 Chloride [Moles/Vol] 106 mmol/L 98-107 [facility] Complete Blood Count Auto Di ffon 02-15-2023 Basophils (Bld) [#/Vol] 0.0 10*3/uL Normal 0.0-0.2 [facility] Comment on above: Result Comment: PERF ORMED BY: [place] [address] PATHOLOGIST ASSISTANT PROFESSOR SURGICAL TECHNOLOGY ROOSEVELT KEYES M.D. Performed By: #### P ORS #### [address] Basophils/100 WBC (Bld) 0.6 % Normal . [facility] Comment on above: Performed By: #### P ORS #### [address] Eosinophils (Bld) [#/Vol] 0.2 10*3/uL Normal 0.0-0.45 [facility] Comment on above: Performed By: #### P ORS #### [address] Eosinophils/100 WBC (Bld) 4.0 % Normal . [facility] Comment on above: Performed By: #### P ORS #### [address] Erythrocyte distribution width (RBC) [Ratio] 13.5 % Normal 11.9-15.3 [facility] Comment on above: Performed By: #### P ORS #### [address] Hematocrit (Bld) [Volume fraction] 38.4 % Normal 34.0-46.4 [facility] Comment on above: Performed By: #### P ORS #### [address] Hemoglobin (Bld) [Mass/Vol] 13.0 g/dL Normal 11.8-15.4 [facility] Comment on above: Performed By: #### P ORS #### [facility] [address] Lymphocytes (Bld) [#/Vol] 1.8 10*3/uL Normal 1.00-4.8 [facility] Comment on above: Performed By: #### P ORS #### [facility] [address] Lymphocytes/100 WBC (Bld) 33.8 % Normal . [facility] Comment on above: Performed By: #### P ORS #### [address] MCH (RBC) [Entitic mass] 29.4 pg Normal 24.7-34.3 [facility] Comment on above: Performed By: #### P ORS #### [address] MCV (RBC) [Entitic vol] 86.8 fL Normal 80-100 [facility] Comment on above: Performed By: #### P ORS #### [address] Mean Corpuscular HGB Conc 33.8 g/dL Normal 32.0-35.0 [facility] Comment on above: Performed By: #### P ORS #### [address] Monocytes (Bld) [#/Vol] 0.3 10*3/uL Normal 0.0-0.8 [facility] Comment on above: Performed By: #### P ORS #### [place] [address] [place] Monocytes/100 WBC (Bld) 18.21 % Normal 0.00-20.00 [facility] Comment on above: Performed By: #### P ORS #### [address] Monocytes/100 WBC (Bld) 4.8 % Normal . [facility] Comment on above: Performed By: #### P ORS #### [address] Neutrophils (Bld) [#/Vol] 3.0 10*3/uL Normal 1.8-7.7 [facility] Comment on above: Performed By: #### P ORS #### [address] Neutrophils/100 WBC (Bld) 56.8 % Normal . [facility] Comment on above: Performed By: #### P ORS #### [address] NRBC% 0.2 /100{WBC} Normal 0-0.5 [facility] Comment on above: Performed By: #### P ORS #### [address] Platelet mean volume (Bld) [Entitic vol] 7.3 fL Normal 6.3-10.7 [facility] Comment on above: Performed By: #### P ORS #### [address] Platelets (Bld) [#/Vol] 385 10*3/uL Normal 150-450 [facility] Comment on above: Performed By: #### P ORS #### [address] RBC (Bld) [#/Vol] 4.43 10*6/uL Normal 3.60-5.00 [facility] Comment on above: Performed By: #### P ORS #### [address] WBC (Bld) [#/Vol] 5.2 10*3/uL Normal 3.8-11.6 [facility] Comment on above: Performed By: #### P ORS #### [address] Creatinine [Mass/volume] in Serum or PlasmaOrdered By: Conner Griffith on 02-15-2023 Creatinine [Mass/Vol] 0.77 mg/dL 0.60-1.20 [facility] Eosinophils Auto (Bld) [#/Vo l]Ordered By: Conner Griffith on 02-15-2023 Eosinophils (Bld) [#/Vol] 0.2 10*3/uL 0.0-0.45 [facility] Eosinophils/100 WBC Auto (Bl d)Ordered By: Conner Griffith on 02-15-2023 Eosinophils/100 WBC (Bld) 4.0 % . [facility] Erythrocyte distribution wid th Auto (RBC) [Ratio]Ordered By: Conner Griffith on 02-15-2023 Erythrocyte distribution width (RBC) [Ratio] 13.5 % 11.9-15.3 [facility] Globulin Calc (S) [Mass/Vol] Ordered By: Conner Griffith on 02-15-2023 Globulin (S) [Mass/Vol] 3.0 g/dL [facility] Glucose [Mass/volume] in Ser um or PlasmaOrdered By: Conner Griffith on 02-15-2023 Glucose [Mass/Vol] 94 mg/dL 70-100 [facility] Comment on above: ADA recommended refe rence rangeRandom Glucose Reference Range is dependent on time and content of last meal. Glucose of more than 200 mg/dL in a nonstressed, ambulatory subject supports the diagnosis of Diabetes Mellitus. Hematocrit Auto (Bld) [Volum e fraction]Ordered By: Conenr Griffith on 02-15-2023 Hematocrit (Bld) [Volume fraction] 38.4 % 34.0-46.4 [facility] Hemoglobin [Mass/volume] in BloodOrdered By: Conner Griffith on 02-15-2023 Hemoglobin (Bld) [Mass/Vol] 13.0 g/dL 11.8-15.4 [facility] Hepatic Panelon 02-15-2023 Albumin [Mass/Vol] 4.3 g/dL Normal 3.5-5.7 [facility] Comment on above: Performed By: #### P ORS #### [facility] [address] Albumin/Globulin [Mass ratio] 1.4 {ratio} Normal [facility] Comment on above: Performed By: #### P ORS #### [address] ALP [Catalytic activity/Vol] 124 U/L High 34-104 [facility] Comment on above: Performed By: #### P ORS #### [address] ALT [Catalytic activity/Vol] 13 U/L Normal 7-52 [facility] Comment on above: Performed By: #### P ORS #### [address] AST [Catalytic activity/Vol] 15 U/L Normal 13-39 [facility] Comment on above: Performed By: #### P ORS #### [address] Bilirubin [Mass/Vol] 0.4 mg/dL Normal 0.3-1.0 [facility] Comment on above: Performed By: #### P ORS #### [address] Bilirubin,Indirect 0.4 mg/dL Normal [facility] Comment on above: Performed By: #### P ORS #### [address] Bilirubin.indirect [Mass/Vol] 0.00 mg/dL Low 0.03-0.18 [facility] Comment on above: Result Comment: If t he DBIL is less than 0.1, IBIL is not able to be calculated. Performed By: #### P ORS #### [address] Globulin (S) [Mass/Vol] 3.0 g/dL Normal [facility] Comment on above: Performed By: #### P ORS #### [address] Protein [Mass/Vol] 7.3 g/dL Normal 6.4-8.9 [facility] Comment on above: Performed By: #### P ORS #### [address] Laboratory - CoagulationOrde red By: Conner Griffith on 02-15-2023 PT Coag (PPP) [Time] 11.7 s 9.0-12.9 [facility] Leukocytes [#/volume] correc jun for nucleated erythrocytes in Blood by Automated counOrdered By: Conner Griffith on 02-15-2023 WBC corrected for nucl RBC Auto (Bld) [#/Vol] 5.2 10*3/uL 3.8-11.6 [facility] Lipaseon 02-15-2023 Lipase [Catalytic activity/Vol] 19.0 U/L Normal 11.0-82.0 [facility] Comment on above: Result Comment: PERF ORMED BY: [place] [address] PATHOLOGIST ASSISTANT PROFESSOR SURGICAL TECHNOLOGY ROOSEVELT KEYES M.D. Performed By: #### H EPATIC, CBC, BMP, LIPASE #### [address] Lipase [Enzymatic activity/v olume] in Serum or PlasmaOrdered By: Conner Griffith on 02-15-2023 Lipase [Catalytic activity/Vol] 19.0 U/L 11.0-82.0 [facility] Lymphocytes Auto (Bld) [#/Vo l]Ordered By: Conner Griffith on 02-15-2023 Lymphocytes (Bld) [#/Vol] 1.8 10*3/uL 1.00-4.8 [facility] Lymphocytes/100 WBC Auto (Bl d)Ordered By: Conner Griffith on 02-15-2023 Lymphocytes/100 WBC (Bld) 33.8 % . [facility] MCH Auto (RBC) [Entitic mass ]Ordered By: Conner Griffith on 02-15-2023 MCH (RBC) [Entitic mass] 29.4 pg 24.7-34.3 [facility] MCHC Auto (RBC) [Mass/Vol]Or dered By: Conner Griffith on 02-15-2023 MCHC (RBC) [Mass/Vol] 33.8 g/dL 32.0-35.0 [facility] MCV Auto (RBC) [Entitic vol] Ordered By: Conner Griffith on 02-15-2023 MCV (RBC) [Entitic vol] 86.8 fL 80-100 [facility] Monocyte distribution width [Entitic volume] in Blood by AutomatedOrdered By: Conner Griffith on 02-15-2023 Monocyte distribution width Auto (Bld) [Entitic vol] 18.21 % 0.00-20.00 [facility] Monocytes Auto (Bld) [#/Vol] Ordered By: Conner Griffith on 02-15-2023 Monocytes (Bld) [#/Vol] 0.3 10*3/uL 0.0-0.8 [facility] Monocytes/100 WBC Auto (Bld) Ordered By: Conner Griffith on 02-15-2023 Monocytes/100 WBC (Bld) 4.8 % . [facility] Neutrophils Auto (Bld) [#/Vo l]Ordered By: Conner Griffith on 02-15-2023 Neutrophils (Bld) [#/Vol] 3.0 10*3/uL 1.8-7.7 [facility] Neutrophils/100 WBC Auto (Bl d)Ordered By: Conner Griffith on 02-15-2023 Neutrophils/100 WBC (Bld) 56.8 % . [facility] No Panel InformationOrdered By: Conner Griffith on 02-15-2023 Estimated GFR (CKD-EPI) > 60.0 mL/Min [facility] Creatinine Clearance (Chem 98.01 [facility] Nucleated erythrocytes [Pres ence] in Blood by Automated countOrdered By: Conner Griffith on 02-15-2023 Nucleated RBC Auto Ql (Bld) 0.2 /100{WBC} 0-0.5 [facility] Partial Thromboplastin Timeo n 02-15-2023 aPTT Coag (Bld) [Time] 37.0 s High 25.1-36.5 [facility] Comment on above: Result Comment: PERF ORMED BY: [place] [address] PATHOLOGIST ASSISTANT PROFESSOR SURGICAL TECHNOLOGY ROOSEVELT KEYES M.D. Performed By: #### P ORS #### [address] Platelet mean volume Auto (B ld) [Entitic vol]Ordered By: Conner Griffith on 02-15-2023 Platelet mean volume (Bld) [Entitic vol] 7.3 fL 6.3-10.7 [facility] Platelet poor plasma interna tional normalized ratio (INR) by coagulation assay (relatOrdered By: Conner Griffith on 02-15-2023 INR Coag (PPP) [Relative time] 1.0 {INR} [facility] Comment on above: INR Therapeutic Rang [...] 02-15-2023 Platelets (Bld) [#/Vol] 385 10*3/uL 150-450 [facility] Potassium [Moles/volume] in Serum or PlasmaOrdered By: Conner Griffith on 02-15-2023 Potassium [Moles/Vol] 3.9 mmol/L 3.5-5.1 [facility] Protein [Mass/volume] in Ser um or PlasmaOrdered By: Conner Griffith on 02-15-2023 Protein [Mass/Vol] 7.3 g/dL 6.4-8.9 [facility] Prothrombin Time INRon 02-15 INR Coag (PPP) [Relative time] 1.0 {INR} Normal [facility] Comment on above: Result Comment: INR [...] 4.5 Performed By: #### P ORS #### [address] PT Coag (PPP) [Time] 11.7 s Normal 9.0-12.9 [facility] Comment on above: Performed By: #### P ORS #### [facility] [address] RBC Auto (Bld) [#/Vol]Ordere d By: Conner Griffith on 02-15-2023 RBC (Bld) [#/Vol] 4.43 10*6/uL 3.60-5.00 [facility] Serum or plasma albumin/glob ulin mass ratioOrdered By: Conner Griffith on 02-15-2023 Albumin/Globulin [Mass ratio] 1.4 {ratio} [facility] Serum or plasma anion gap de terminationOrdered By: Conner Griffith on 02-15-2023 Anion gap [Moles/Vol] 12.6 mmol/L 6.0-15.0 [facility] Serum or plasma non-glucuron idated bilirubin measurement (mass/volume)Ordered By: Conner Griffith on 02-15-2023 Bilirubin.indirect [Mass/Vol] 0.4 mg/dL [facility] Sodium [Moles/volume] in Ser um or PlasmaOrdered By: Conner Griffith on 02-15-2023 Sodium [Moles/Vol] 140 mmol/L 136-145 [facility] Urea nitrogen [Mass/volume] in Serum or PlasmaOrdered By: Conner Griffith on 02-15-2023 Urea nitrogen [Mass/Vol] 14 mg/dL 7-25 [facility] WBC Auto (Bld) [#/Vol]Ordere d By: Conner Griffith on 02-15-2023 WBC (Bld) [#/Vol] 5.2 10*3/uL 3.8-11.6 [facility] MG MAMM SCREEN 3D MACARIO CADon 11-30-2022 MG MAMM SCREEN 3D MACARIO CAD Normal [facility] ER URINE PROFILEon 3 Bilirubin Ql (U) Negative Normal NEGATIVE [facility] Comment on above: Performed By: #### E RUR ####[facility] [address] [place] [address]Dr. Tadeo Smyth Clarity (U) CLEAR Normal CLEAR [facility] Comment on above: Performed By: #### E RUR ####[facility] [address] [place], [place] [address]Dr. Tadeo Smyth Color (U) YELLOW Normal YELLOW [facility] Comment on above: Performed By: #### E RUR ####[facility] [address] [place], [place] [address]Dr. Tadeo Smyth ERUAHD A micrscopic examina tion will be performed if indicated. Normal [facility] Comment on above: Performed By: #### E RUR ####[facility] [address] [place], [place] [address]Dr. Tadeo Smyth Glucose Ql (U) Negative Normal NEGATIVE [facility] Comment on above: Performed By: #### E RUR ####[facility] [address] [place], [place] [address]Dr. Tadeo Smyth Hemoglobin Ql (U) TRACE-INTACT Abnormal NEGATIVE [facility] Comment on above: Performed By: #### E RUR ####[facility] [address] [place], [place] [address]Dr. Tadeo Smyth Ketones Ql (U) Negative Normal NEGATIVE [facility] Comment on above: Performed By: #### E RUR ####[facility] [address] [place], [place] [address]Dr. Tadeo Smyth LEUKOCYTES Negative Normal NEGATIVE [facility] Comment on above: Performed By: #### E RUR ####[facility] [address] [place], [place] [address]Dr. Tadeo Smyth Nitrite Ql (U) Negative Normal NEGATIVE [facility] Comment on above: Performed By: #### E RUR ####[facility] [address] [place], [place] [address]Dr. Tadeo Smyth pH (U) 6.0 [pH] Normal 5-9 [facility] Comment on above: Performed By: #### E RUR ####[facility] [address] [place], [place] [address]Dr. Tadeo Smyth SPEC GRAVITY >=1.030 Abnormal 1.005-<=1.0 25 [facility] Comment on above: Performed By: #### E RUR ####[facility] [address] [place] [address]Dr. Tadeo Smyth UA PROTEIN Negative Normal NEGATIVE/ TRACE [facility] Comment on above: Performed By: #### E RUR ####[facility] [address] [place], [place] [address]Dr. Tadeo Smyth UR MICRO IND NOT INDICATED Normal [facility] Comment on above: Performed By: #### E RUR ####[facility] [address] [place], [place] [address]Dr. Tadeo Smyth Urobilinogen Qn (U) 0.2 {Benito'U}/dL Normal 0.2 - 1. 0 [facility] Comment on above: Performed By: #### E RUR ####[facility] [address] [place], [place] [address]Dr. Tadeo Smyth XR ABD FLAT UP_PA Kasey 11-28 XR ABD FLAT UP_PA CH Normal [facility] AMYLASEon 11-27-2022 Amylase [Catalytic activity/Vol] 63 U/L Normal 25-115 [facility] Comment on above: Performed By: #### L VIJI HALL, CMP ####[facility] [address] [place], [place] [address]Dr. Tadeo Smyth CBC AUTO DIFFon 11-27-2022 BASO # 0.0 103/ul Normal 0.0-0.1 [facility] Comment on above: Performed By: #### C BC ####[facility] [address] [place], [place] [address]Dr. Tadeo Smyth Basophils/100 WBC (Bld) 0.4 % Normal 0.2-2.0 [facility] Comment on above: Performed By: #### C BC ####[facility] Center [address] [place], [place] [address]Dr. Tadeo Smyth EO # 0.2 103/ul Normal 0.0-0.7 [facility] Comment on above: Performed By: #### C BC ####[facility] Hcfykzuydd80[address] [place] [address]Dr. Tadeo Smyth Eosinophils/100 WBC (Bld) 2.8 % Normal 0.9-7.0 [facility] Comment on above: Performed By: #### C BC ####[facility] Rhlkwgewzo[address] [place], [place] [address]Dr. Tadeo Smyth Erythrocyte distribution width (RBC) [Ratio] 13.2 % Normal 11.0-15.0 [facility] Comment on above: Performed By: #### C BC ####[facility] Adxizhqmqd[address] [place], [place] [address]Dr. Tadeo Smyth Hematocrit (Bld) [Volume fraction] 42.6 % Normal 36.0-48.0 [facility] Comment on above: Performed By: #### C BC ####[facility] Ydmiilotnc[address] [place], [place] [address]Dr. Tadeo Smyth Hemoglobin (Bld) [Mass/Vol] 13.6 g/dL Normal 12.0-16.0 [facility] Comment on above: Performed By: #### C BC ####[facility] Zxwfhjhluo[address] [place], [place] [address]Dr. Tadeo Smyth IG # 0.02 10e3/ul Normal 0.00-0.03 [facility] Comment on above: Performed By: #### C BC ####[facility] Lfaitrpeap[address] [place], [place] [address]Dr. Tadeo Smyth IG % 0.3 % Normal 0.0-0.5 [facility] Comment on above: Performed By: #### C BC ####[facility] Zsbjukjhxf[address] [place], [place] [address]Dr. Tadeo Smyth LYMPH # 2.2 103/ul Normal 1.2-3.8 [facility] Comment on above: Performed By: #### C BC ####[facility] Wsfcrmvuxe[address] [place], [place] [address]Dr. Tadeo Smyth Lymphocytes/100 WBC (Bld) 32.1 % Normal 20.5-60.0 [facility] Comment on above: Performed By: #### C BC ####[facility] Bbhjzlziif75[address] [place] [address]Dr. Tadeo Smyth MANUAL DIFF REQ NO Normal [facility] Comment on above: Performed By: #### C BC ####[facility] Hjxdopzvai1614 [place] [address]Dr. Tadeo Smyth MCH (RBC) [Entitic mass] 29.6 pg Normal 26.7-34.0 [facility] Comment on above: Performed By: #### C BC ####[facility] Yzecrcdljp7714 [place] [address]Dr. Tadeo Smyth MCHC (RBC) [Mass/Vol] 31.9 g/dL Normal 29.9-35.2 [facility] Comment on above: Performed By: #### C BC ####[facility] Uzyzrlenvh6330 [place] [address]Dr. Tadeo Haja MCV (RBC) [Entitic vol] 92.6 fL Normal 81.0-99.0 [facility] Comment on above: Performed By: #### C BC ####[facility] Ofjgfhsvao24[address] [place], [place] [address]Dr. Tadeo Haaj MONO # 0.2 103/ul Critically low 0.3-0.8 [facility] Comment on above: Performed By: #### C BC ####[facility] Hsaonqdlzt[address] [place], [place] [address]Dr. Margotnicole Smyth Monocytes/100 WBC (Bld) 3.2 % Normal 1.7-12.0 [facility] Comment on above: Performed By: #### C BC ####[facility] Wpolgjxiql[address] [place], [place] [address]Dr. Margotnicole Haja NEUT # 4.2 103/ul Normal 1.4-6.5 [facility] Comment on above: Performed By: #### C BC ####[facility] Smfeiqgiqr198[address] [place], [place] [address]Dr. Tadeo Smyth Neutrophils/100 WBC (Bld) 61.2 % Normal 43.0-75.0 [facility] Comment on above: Performed By: #### C BC ####[facility] Vqzcfqcfmb4525 [place] [address]Dr. Tadeo Smyth Platelet mean volume (Bld) [Entitic vol] 9.0 fL Critically low 9.5-13.5 [facility] Comment on above: Performed By: #### C BC ####[facility] Itveahnjsg3363 [place] [address]Dr. Margotnicole Haja PLT 392 103/ul Normal 150-450 [facility] Comment on above: Performed By: #### C BC ####[facility] Pzdcwegvdo1942 [place] [address]Dr. Tadeo Smyth RBC 4.60 106/ul Normal 4.20-5.40 [facility] Comment on above: Performed By: #### C BC ####[facility] Hdjqzehmqu16[address] [place], [place] [address]Dr. Tadeo Smyth WBC 6.9 103/ul Normal 4.0-11.0 [facility] Comment on above: Performed By: #### C BC ####[facility] Hoxkrxodau[address] [place], [place] [address]Dr. Tadeo Smyth LIPASEon 11-27-2022 Lipase [Catalytic activity/Vol] 100.0 U/L Normal 73.0-393.0 [facility] Comment on above: Performed By: #### L VIJI HALL, CMP ####[facility] Woludkgegw[address] [place], [place] [address]Dr. Tadeo Smyth PROF 14(COMP METB)on 023 Albumin [Mass/Vol] 3.5 g/dL Normal 3.4-5.0 [facility] Comment on above: Performed By: #### L VIJI HALL, CMP ####[facility] Qeyuonxojz[address] [place], [place] [address]Dr. Tadeo Smyth Albumin/Globulin [Mass ratio] 0.9 {ratio} Normal [facility] Comment on above: Performed By: #### L VIJI HALL, CMP ####[facility] Sdxturnjsx25[address] [place], [place] [address]Dr. Tadeo Smyth ALP [Catalytic activity/Vol] 166 U/L Critically high 46-116 [facility] Comment on above: Performed By: #### L IPA, VIJI, CMP ####[facility] Aexyeptmsj7804 [place] [address]Dr. Margotnicole Smyth ALT [Catalytic activity/Vol] 25 U/L Normal 14-59 [facility] Comment on above: Performed By: #### L IPA, VIJI, CMP ####[facility] Ltmmbgqsfq3791 [place] [address]Dr. Tadeo Smyth Anion gap [Moles/Vol] 12.4 mmol/L Normal [facility] Comment on above: Performed By: #### L IPA, VIJI, CMP ####[facility] Licfvhhznj9710[address] [place], [place] [address]Dr. Tadeo Smyth AST [Catalytic activity/Vol] 18 U/L Normal 15-37 [facility] Comment on above: Performed By: #### L IPA VIJI, CMP ####[facility] Dincsoudxq6020[address] [place], [place] [address]Dr. Tadeo Smyth Bilirubin [Mass/Vol] 0.3 mg/dL Normal 0.2-1.0 [facility] Comment on above: Performed By: #### L IPA VIJI, CMP ####[facility] Odzdazbjxf7[address] [place], [place] [address]Dr. Tadeo Smyth Calcium [Mass/Vol] 9.1 mg/dL Normal 8.5-10.1 [facility] Comment on above: Performed By: #### L IPA VIJI, CMP ####[facility] Emfxyvibwl[address] [place], [place] [address]Dr. Tadeo Smyth Chloride [Moles/Vol] 104 mmol/L Normal 98-107 [facility] Comment on above: Performed By: #### L IPA, VIJI, CMP ####[facility] Kczuifylno225[address] [place], [place] [address]Dr. Tadeo Smyth CO2 [Moles/Vol] 25.0 mmol/L Normal 21.0-32.0 [facility] Comment on above: Performed By: #### L IPA, VIJI, CMP ####[facility] Nysunfnzag[address] [place], [place] [address]Dr. Tadeo Smyth Creatinine [Mass/Vol] 0.87 mg/dL Normal 0.55-1.02 [facility] Comment on above: Performed By: #### L VIJI HALL, CMP ####[facility] Qblcpjpmtq7096 [place] [address]Dr. Tadeo Smyth EGFR-AF KYRGYZ >60 Normal >=60 [facility] Comment on above: Performed By: #### L VIJI HALL, CMP ####[facility] Xfraxtkmhe9876 [place] [address]Dr. Tadeo Smyth EGFR-NON AF KYRGYZ >60 Normal >=60 [facility] Comment on above: Performed By: #### L VIJI HALL, CMP ####[facility] Rvkgjjmywt6036 [place] [address]Dr. Tadeo Haja Globulin (S) [Mass/Vol] 3.9 g/dL Normal [facility] Comment on above: Performed By: #### L VIJI HALL, CMP ####[facility] Kxgopaiedo7443 [place] [address]Dr. Tadeo Haja Glucose [Mass/Vol] 169 mg/dL Critically high 74-106 [facility] Comment on above: Performed By: #### L VIJI HALL, CMP ####[facility] Wfyeifnwdk2690 [place] [address]Dr. Tadeo Smyth Potassium [Moles/Vol] 3.4 mmol/L Critically low 3.5-5.1 [facility] Comment on above: Performed By: #### L VIJI HALL, CMP ####[facility] Oidylamphm7266 [place] [address]Dr. Tadeo Haja Protein [Mass/Vol] 7.4 g/dL Normal 6.4-8.2 [facility] Comment on above: Performed By: #### L VIJI HALL, CMP ####[facility] Kepglsmjmd[address] [place], [place] [address]Dr. Tadeo Smyth Sodium [Moles/Vol] 138 mmol/L Normal 136-145 [facility] Comment on above: Performed By: #### L VIJI HALL, CMP ####[facility] Uny[address]wwe[address] [place], [place] [address]Uk. Tadeo Smyth Urea nitrogen [Mass/Vol] 23.0 mg/dL Critically high 7.0-18.0 [facility] Comment on above: Performed By: #### L VIJI HALL CMP ####[facility] Ewdnpmofxr[address] [place], [place] [address]Yg. Tadeo Smyth Urea nitrogen/Creatinine [Mass ratio] 26.4 mg/mg Normal [facility] Comment on above: Performed By: #### L VIJI HALL CMP ####[facility] Plbtqumecd37[address] [place], [place] [address]Sp. Tadeo Smy[address] CT enterographyon 11-04-2022 CT enterography [facility] Main [place] [id number] CT Scan Report Signed Patient: Constantino Cardoso MR#: [id number] : 1970 Acct:[id number] Age/Sex: 52 / F ADM Date: 11/04/22 Loc: CT Room: Type: [facility] Attending Dr: Jennie Ayon MD Copies to: [...] D.O.11/04/2022 11:17 AM Dictation Location: [place] [address] Transcribed By: [facility] 11/04/22 111 Dictated By: Tiburcio Bateman Jr, DO 11/04/22 111 Signed By: 11/04/22 1117 Normal [facility] AMYLASEon 11-02-2022 Amylase [Catalytic activity/Vol] 40 U/L Normal 25-115 [facility] Comment on above: Performed By: #### L IPA, MG, CMP, VIJI ####[facility] Ksptjxdrnn2938 [place] [address]Dr. Tadeo Smyth CBC AUTO DIFFon 11-02-2022 BASO # 0.0 103/ul Normal 0.0-0.1 [facility] Comment on above: Performed By: #### C BC ####[facility] Jlowsrbqnq2817 [place] [address]Dr. Tadeo Smyth Basophils/100 WBC (Bld) 0.5 % Normal 0.2-2.0 [facility] Comment on above: Performed By: #### C BC ####[facility] Kzbfbgfmxl5521 [place] [address]DrNeo Smyth EO # 0.1 103/ul Normal 0.0-0.7 [facility] Comment on above: Performed By: #### C BC ####[facility] Dfdcrzbonk2580 [place] [address]Dr. Tadeo Smyth Eosinophils/100 WBC (Bld) 2.8 % Normal 0.9-7.0 [facility] Comment on above: Performed By: #### C BC ####[facility] Vwghkqdqus8983 [place] [address]DrNeo Smyth Erythrocyte distribution width (RBC) [Ratio] 13.3 % Normal 11.0-15.0 [facility] Comment on above: Performed By: #### C BC ####[facility] Gxofmthwkt3910 [place] [address]Dr. Tadeo Smyth Hematocrit (Bld) [Volume fraction] 35.6 % Critically low 36.0-48.0 [facility] Comment on above: Performed By: #### C BC ####[facility] Gxsynqzhen9316 [place] [address]Dr. Tadeo Smyth Hemoglobin (Bld) [Mass/Vol] 11.3 g/dL Critically low 12.0-16.0 [facility] Comment on above: Performed By: #### C BC ####[facility] Xtkzvjozch[address] [place], [place] [address]Dr. Tadeo Smyth IG # 0.01 10e3/ul Normal 0.00-0.03 [facility] Comment on above: Performed By: #### C BC ####[facility] Dqryqgaqyw[address] [place], [place] [address]Dr. Tadeo Smyth IG % 0.2 % Normal 0.0-0.5 [facility] Comment on above: Performed By: #### C BC ####[facility] Udctuifkrv[address] [place], [place] [address]DrNeo Tadeo Smyth LYMPH # 1.5 103/ul Normal 1.2-3.8 [facility] Comment on above: Performed By: #### C BC ####[facility] Jfgmcyeldv[address]24[address] [place], [place] [address]DrNeo Tadeo Smyth Lymphocytes/100 WBC (Bld) 34.9 % Normal 20.5-60.0 [facility] Comment on above: Performed By: #### C BC ####[facility] Tjdgajnekh[address] [place], [place] [address]DrNeo Tadeo Smyth MANUAL DIFF REQ NO Normal [facility] Comment on above: Performed By: #### C BC ####[facility] Khdcjsoepr225[address] [place], [place] [address]Dr. Tadeo Smyth MCH (RBC) [Entitic mass] 28.8 pg Normal 26.7-34.0 [facility] Comment on above: Performed By: #### C BC ####[facility] Ccetkazzgv6982 [place] [address]Dr. Margotnicole Smyth MCHC (RBC) [Mass/Vol] 31.7 g/dL Normal 29.9-35.2 [facility] Comment on above: Performed By: #### C BC ####[facility] Jrqarkxuca90[address] [place], [place] [address]DrNeo Smyth MCV (RBC) [Entitic vol] 90.8 fL Normal 81.0-99.0 [facility] Comment on above: Performed By: #### C BC ####[facility] Ijepzcnmos[address] [place], [place] [address]DrNeo Smyth MONO # 0.3 103/ul Normal 0.3-0.8 [facility] Comment on above: Performed By: #### C BC ####[facility] Okhbfpnico5415[address] [place], [place] [address]Dr. Tadeo Smyth Monocytes/100 WBC (Bld) 6.9 % Normal 1.7-12.0 [facility] Comment on above: Performed By: #### C BC ####[facility] Gemdrctjmi[address] [place], [place] [address]DrNeo Smyth NEUT # 2.4 103/ul Normal 1.4-6.5 [facility] Comment on above: Performed By: #### C BC ####[facility] Bamssmldta9624[address] [place], [place] [address]DrNeo Smyth Neutrophils/100 WBC (Bld) 54.7 % Normal 43.0-75.0 [facility] Comment on above: Performed By: #### C BC ####[facility] Vomldyiqai327[address] [place], [place] [address]DrNeo Smyth Platelet mean volume (Bld) [Entitic vol] 8.9 fL Critically low 9.5-13.5 [facility] Comment on above: Performed By: #### C BC ####[facility] Uopwjwrgiv9[address] [place], [place] [address]Dr. Tadeo Smyth PLT 316 103/ul Normal 150-450 [facility] Comment on above: Performed By: #### C BC ####[facility] Rczdgrobhg0907 [place] [address]Dr. Tadeo Smyth RBC 3.92 106/ul Critically low 4.20-5.40 [facility] Comment on above: Performed By: #### C BC ####[facility] Pncvxjhjuj9501 [place] [address]Dr. Tadeo Smyth WBC 4.4 103/ul Normal 4.0-11.0 [facility] Comment on above: Performed By: #### C BC ####[facility] Ptquewjowa[address] [place], [place] [address]Dr. Tadeo Smyth H PYLORI ANTIBODY IGGon 10-07 H. PYLORI IGG ABS 0.12 Index Value Normal 0.00-0.79 [facility] Comment on above: Result Comment: Nega tive <0.80 Equivocal 0.80 - 0.89 Positive >0.89 Performed By: #### H PYLLC ####[facility] Sbkedwjent0690 [place] [address]Dr. Tadeo Smyth LIPASEon 11-02-2022 Lipase [Catalytic activity/Vol] 58.0 U/L Critically low 73.0-393.0 [facility] Comment on above: Performed By: #### L IPA, MG, CMP, VIJI ####[facility] Plrgdlfcoo4576 [place] [address]Dr. Tadeo Smyth MAGNESIUMon 11-02-2022 Magnesium [Mass/Vol] 1.8 mg/dL Normal 1.8-2.4 [facility] Comment on above: Performed By: #### L IPA, MG, CMP, VIJI ####[facility] Rtnolnuqau[address] [place], [place] [address]DrNeo Tadeo Smyth PROF 14(COMP METB)on 023 Albumin [Mass/Vol] 3.2 g/dL Critically low 3.4-5.0 [facility] Comment on above: Performed By: #### L IPA, MG, CMP, VIJI ####[facility] Sbpravxlnm8727 [place] [address]Dr. Tadeo Smyth Albumin/Globulin [Mass ratio] 1.0 {ratio} Normal [facility] Comment on above: Performed By: #### L IPA, MG, CMP, VIJI ####[facility] Lyyilobazg9879 [place] [address]Dr. Tadeo Smyth ALP [Catalytic activity/Vol] 138 U/L Critically high 46-116 [facility] Comment on above: Performed By: #### L IPA, MG, CMP, VIJI ####[facility] Allkhqavqg0554 [place] [address]Dr. Tadeo Smyth ALT [Catalytic activity/Vol] 22 U/L Normal 14-59 [facility] Comment on above: Performed By: #### L IPA, MG, CMP, VIJI ####[facility] Oiauhzrwtl4262 [place] [address]Dr. Tadeo Smyth Anion gap [Moles/Vol] 10.0 mmol/L Normal [facility] Comment on above: Performed By: #### L IPA, MG, CMP, VIJI ####[facility] Jxdadtseeg[address] [place], [place] [address]Dr. Tadeo Smyth AST [Catalytic activity/Vol] 18 U/L Normal 15-37 [facility] Comment on above: Performed By: #### L IPA, MG, CMP, VIJI ####[facility] Snlnkqggyv9783 [place] [address]Dr. Tadeo Smyth Bilirubin [Mass/Vol] 0.5 mg/dL Normal 0.2-1.0 [facility] Comment on above: Performed By: #### L IPA, MG, CMP, VIJI ####[facility] Zohnwbartl1723 [place] [address]Dr. Tadeo Smyth Calcium [Mass/Vol] 8.9 mg/dL Normal 8.5-10.1 [facility] Comment on above: Performed By: #### L IPA, MG, CMP, VIJI ####[facility] Iobuebauvq7099 [place] [address]Dr. Tadeo Smyth Chloride [Moles/Vol] 107 mmol/L Normal 98-107 [facility] Comment on above: Performed By: #### L IPA, MG, CMP, VIJI ####[facility] Fgpklfnack1908 [place] [address]Dr. Tadeo Smyth CO2 [Moles/Vol] 28.8 mmol/L Normal 21.0-32.0 [facility] Comment on above: Performed By: #### L IPA, MG, CMP, VIJI ####[facility] Gbxcpkreda[address] [place], [place] [address]Dr. Tadeo Smyth Creatinine [Mass/Vol] 0.74 mg/dL Normal 0.55-1.02 [facility] Comment on above: Performed By: #### L IPA, MG, CMP, VIJI ####[facility] Mmdqazeipm0340[address] [place], [place] [address]Dr. Margotnicole Smyth EGFR-AF KYRGYZ >60 Normal >=60 [facility] Comment on above: Performed By: #### L IPA, MG, CMP, VIJI ####[facility] Kruhulejgd[address] [place], [place] [address]Dr. Tadeo Smyth EGFR-NON AF KYRGYZ >60 Normal >=60 [facility] Comment on above: Performed By: #### L IPA, MG, CMP, VIJI ####[facility] Vjnjcmxdej164[address] [place], [place] [address]Dr. Tadeo Smyth Globulin (S) [Mass/Vol] 3.3 g/dL Normal [facility] Comment on above: Performed By: #### L IPA, MG, CMP, VIJI ####[facility] Afxyzgcyts[address] [place], [place] [address]Dr. Margotnicole Smyth Glucose [Mass/Vol] 96 mg/dL Normal 74-106 [facility] Comment on above: Performed By: #### L IPA, MG, CMP, VIJI ####[facility] Ybevqocevd[address] [place], [place] [address]Dr. Margotnicole Smyth Potassium [Moles/Vol] 3.8 mmol/L Normal 3.5-5.1 [facility] Comment on above: Performed By: #### L IPA, MG, CMP, VIJI ####[facility] Xjunchuwzv1886 [place] [address]Dr. Tadeo Smyth Protein [Mass/Vol] 6.5 g/dL Normal 6.4-8.2 [facility] Comment on above: Performed By: #### L IPA, MG, CMP, VIJI ####[facility] Iqsczxqpbq7730 [place] [address]Dr. Tadeo Smyth Sodium [Moles/Vol] 142 mmol/L Normal 136-145 [facility] Comment on above: Performed By: #### L IPA, MG, CMP, VIJI ####[facility] Xobbseywkm411[address] [place], [place] [address]Dr. Tadeo Smyth Urea nitrogen [Mass/Vol] 8.0 mg/dL Normal 7.0-18.0 [facility] Comment on above: Performed By: #### L IPA, MG, CMP, VIJI ####[facility] Kqyslgtjme[address] [place], [place] [address]Dr. Tadeo Smyth Urea nitrogen/Creatinine [Mass ratio] 10.8 mg/mg Normal [facility] Comment on above: Performed By: #### L IPA, MG, CMP, VIJI ####[facility] Bdanytured7[address] [place], [place] [address]Dr. Tadeo Smyth AMMONIAon 11-01-2022 Ammonia (P) [Moles/Vol] 18 umol/L Normal 11-32 [facility] Comment on above: Performed By: #### A MM ####[facility] Bwrvyhedfq5433[address] [place], [place] [address]Dr. Tadeo Smyth AMYLASEon 11-01-2022 Amylase [Catalytic activity/Vol] 43 U/L Normal 25-115 [facility] Comment on above: Performed By: #### M G, VIJI, LIPA, CMP ####[facility] Bazrexoozo9[address] [place], [place] [address]Dr. Tadeo Smyth CBC AUTO DIFFon 11-01-2022 BASO # 0.0 103/ul Normal 0.0-0.1 [facility] Comment on above: Performed By: #### C BC ####[facility] Gkvertnnzv0777[address] [place], [place] [address]Dr. Tadeo Smyth Basophils/100 WBC (Bld) 0.6 % Normal 0.2-2.0 [facility] Comment on above: Performed By: #### C BC ####[facility] Xqcoutgexv0740 [place] [address]Dr. Tadeo Smyth EO # 0.1 103/ul Normal 0.0-0.7 [facility] Comment on above: Performed By: #### C BC ####[facility] Lhkomteunv[address] [place], [place] [address]Dr. Tadeo Smyth Eosinophils/100 WBC (Bld) 1.5 % Normal 0.9-7.0 [facility] Comment on above: Performed By: #### C BC ####[facility] Amgjqjalyr[address]67[address] [place], [place] [address]Dr. Tadeo Smyth Erythrocyte distribution width (RBC) [Ratio] 13.5 % Normal 11.0-15.0 [facility] Comment on above: Performed By: #### C BC ####[facility] Ocskrpswth[address] [place], [place] [address]Dr. Tadeo Smyth Hematocrit (Bld) [Volume fraction] 37.7 % Normal 36.0-48.0 [facility] Comment on above: Performed By: #### C BC ####[facility] Nygldikevi17[address] [place], [place] [address]Dr. Tadeo Smyth Hemoglobin (Bld) [Mass/Vol] 12.5 g/dL Normal 12.0-16.0 [facility] Comment on above: Performed By: #### C BC ####[facility] Gskrxvfyky20[address] [place], [place] [address]Dr. Tadeo Smyth IG # 0.02 10e3/ul Normal 0.00-0.03 [facility] Comment on above: Performed By: #### C BC ####[facility] Uwalgzsisv[address] [place], [place] [address]Dr. Tadeo Smyth IG % 0.4 % Normal 0.0-0.5 [facility] Comment on above: Performed By: #### C BC ####[facility] Tzrvicujer[address] [place], [place] [address]Dr. Tadeo Smyth LYMPH # 1.3 103/ul Normal 1.2-3.8 [facility] Comment on above: Performed By: #### C BC ####[facility] Zquvwfqrbg9971 [place] [address]Dr. Margotnicole Smyth Lymphocytes/100 WBC (Bld) 23.9 % Normal 20.5-60.0 [facility] [facility] Comment on above: Performed By: #### C BC ####[facility] [address] [place] [address]Dr. Tadeo Smyth MANUAL DIFF REQ NO Normal [facility] Comment on above: Performed By: #### C BC ####[facility] [address]knultbhwa[address] [place] [address]Dr. Tadeo Smyth MCH (RBC) [Entitic mass] 29.8 pg Normal 26.7-34.0 [facility] Comment on above: Performed By: #### C BC ####[facility] Vicrhkngcb[address] [place], [place] [address]Dr. Margotnicole Smyth MCHC (RBC) [Mass/Vol] 33.2 g/dL Normal 29.9-35.2 [facility] Comment on above: Performed By: #### C BC ####[facility] Lcezmvexkw[address] [place], [place] [address]Dr. Tadeo Smyth MCV (RBC) [Entitic vol] 89.8 fL Normal 81.0-99.0 [facility] Comment on above: Performed By: #### C BC ####[facility] Jaziznpzkb[address] [place], [place] [address]Dr. Tadeo Smyth MONO # 0.3 103/ul Normal 0.3-0.8 [facility] Comment on above: Performed By: #### C BC ####[facility] Hvwcamovdc[address] [place], [place] [address]Dr. Tadeo Smyth Monocytes/100 WBC (Bld) 5.2 % Normal 1.7-12.0 [facility] Comment on above: Performed By: #### C BC ####[facility] W[address]xccz[address] [place], [place] [address]Dr. Tadeo Smyth NEUT # 3.6 103/ul Normal 1.4-6.5 [facility] Comment on above: Performed By: #### C BC ####[facility] Vcddhiwanf[address] [place] [address]Dr. Tadeo Smyth Neutrophils/100 WBC (Bld) 68.4 % Normal 43.0-75.0 [facility] Comment on above: Performed By: #### C BC ####[facility] Yuiq[address]vjdvx[address] [place] [address]Dr. Tadeo Smyth Platelet mean volume (Bld) [Entitic vol] 9.0 fL Critically low 9.5-13.5 [facility] Comment on above: Performed By: #### C BC ####[facility] [address]rce[address] [place] [address]Dr. Tadeo Smyth PLT 356 103/ul Normal 150-450 [facility] Comment on above: Performed By: #### C BC ####[facility] Btmodyfyye[address] [place], [place] [address]Dr. Tadeo Smyth RBC 4.20 106/ul Normal 4.20-5.40 [facility] Comment on above: Performed By: #### C BC ####[facility] Bujekpnnwq[address] [place], [place] [address]Dr. Tadeo Smyth WBC 5.2 103/ul Normal 4.0-11.0 [facility] Comment on above: Performed By: #### C BC ####[facility] Mzuegpwpyk[address] [place], [place] [address]Dr. Tadeo Smyth CT ABD/PELV W CONon 11-01-19 CT ABD/PELV W CON Normal [facility] CULTURE BLOODon 11-01-2022 Microscopic examination of blood, culture Culture Observations: NO GROWTH AT 5 DAYS. Isolate 1 BC_BA_NA Normal [facility] Comment on above: Performed By: #### B LDCX2 ####[facility] Xvgbmotdug[address] [place], [place] [address]Dr. Tadeo Smyth Performed By: #### B LDCX1 ####[facility] Pctymrfbds[address] [place] [address]Dr. Tadeo Smyth CULTURE URINEon 11-01-2022 CULTURE URINE Culture Observations : LIGHT GROWTH OF MIXED GENITAL SINTIA. NO POTENTIAL PATHOGENS SEEN. Normal [facility] Comment on above: Performed By: #### U RCX ####[facility] Pbgbbmsedc[address] [place], [place] [address]Dr. Tadeo Smyth Covid-19 PCR ([facility])on 10-07 SARS-CoV-2 (COVID-19) RNA CHEN+probe Ql (Unsp spec) Not detected Normal NOT DETECTED [facility] Comment on above: Result Comment: [...] for this test is supported by the [place] of Health and Human Service's declaration that [...] be used). Performed By: #### C VDTBH ####[facility] Bbteocbbqc[address] [place], [place] [address]Dr. Tadeo Smyth LACTATE/LACTIC ACIDon 2022 Lactate [Moles/Vol] 0.7 mmol/L Normal 0.4-1.9 [facility] Comment on above: Performed By: #### L ACT ####[facility] Twazsnmpld[address] [place], [place] [address]Dr. Tadeo Smyth LIPASEon 11-01-2022 Lipase [Catalytic activity/Vol] 58.0 U/L Critically low 73.0-393.0 [facility] Comment on above: Performed By: #### M G, VIJI, LIPA, CMP ####[facility] [address]nfmkbrrat[address] [place] [address]Dr. Tadeo Smyth MAGNESIUMon 11-01-2022 Magnesium [Mass/Vol] 2.0 mg/dL Normal 1.8-2.4 [facility] Comment on above: Performed By: #### M Ayan, VIJI, LIPA, CMP ####[facility] [address] [place] [address]Dr. Tadeo Smyth PROF 14(COMP METB)on 023 Albumin [Mass/Vol] 3.6 g/dL Normal 3.4-5.0 [facility] Comment on above: Performed By: #### M Ayan, VIJI, LIPA, CMP ####[facility] Vfyvbimp[address] [place] [address]Dr. Tadeo Smyth Albumin/Globulin [Mass ratio] 1.0 {ratio} Normal [facility] Comment on above: Performed By: #### Hanna Botello, VIJI, LIPA, CMP ####[facility] Maoqhyhdqg[address] [place] [address]Dr. Tadeo Smyth ALP [Catalytic activity/Vol] 164 U/L Critically high 46-116 [facility] Comment on above: Performed By: #### Hanna Botello, VIJI, LIPA, CMP ####[facility] [address]zovwrtpu[address] [place] [address]Dr. Tadeo Smyth ALT [Catalytic activity/Vol] 22 U/L Normal 14-59 [facility] Comment on above: Performed By: #### Hanna Botello, VIJI, LIPA, CMP ####[facility] S[address]wpb[address]ul[address] [place] [address]Dr. Tadeo Smyth Anion gap [Moles/Vol] 11.5 mmol/L Normal [facility] Comment on above: Performed By: #### M Ayan, VIJI, LIPA, CMP ####[facility] [address]unwbvoak[address] [place] [address]Dr. Tadeo Smyth AST [Catalytic activity/Vol] 17 U/L Normal 15-37 [facility] Comment on above: Performed By: #### Hanna Botello, VIJI, LIPA, CMP ####[facility] Igxxk[address]jza[address] [place] [address]Dr. Tadeo Smyth Bilirubin [Mass/Vol] 0.4 mg/dL Normal 0.2-1.0 [facility] Comment on above: Performed By: #### M G, VIJI, LIPA, CMP ####[facility] [address]wtb[address] [place] [address]Dr. Tadeo Smyth Calcium [Mass/Vol] 9.1 mg/dL Normal 8.5-10.1 [facility] Comment on above: Performed By: #### M G, VIJI, LIPA, CMP ####[facility] Bililjqniz[address] [place], [place] [address]Dr. Tadeo Smyth Chloride [Moles/Vol] 105 mmol/L Normal 98-107 [facility] Comment on above: Performed By: #### M G, VIJI, LIPA, CMP ####[facility] Frsnxmlrcz[address] [place], [place] [address]Dr. Tadeo Smyth CO2 [Moles/Vol] 27.6 mmol/L Normal 21.0-32.0 [facility] Comment on above: Performed By: #### M G, VIJI, LIPA, CMP ####[facility] [address]qbucbsl[address] [place], [place] [address]Dr. Tadeo Smyth Creatinine [Mass/Vol] 0.72 mg/dL Normal 0.55-1.02 [facility] Comment on above: Performed By: #### M G, VIJI, LIPA, CMP ####[facility] Kmeexvxzah[address] [place], [place] [address]Dr. Tadeo Smyth EGFR-AF KYRGYZ >60 Normal >=60 [facility] Comment on above: Performed By: #### M G, VIJI, LIPA, CMP ####[facility] Diejsdrmnv[address] [place], [place] [address]Dr. Tadeo Smyth EGFR-NON AF KYRGYZ >60 Normal >=60 [facility] Comment on above: Performed By: #### M G, VIJI, LIPA, CMP ####[facility] Mijdyfvkwo[address] [place], [place] [address]Dr. Tadeo Smyth Globulin (S) [Mass/Vol] 3.6 g/dL Normal [facility] Comment on above: Performed By: #### M Ayan, VIJI LIPA, CMP ####[facility] Ywfjqwibtx[address] [place] [address]Dr. Tadeo Smyth Glucose [Mass/Vol] 100 mg/dL Normal 74-106 [facility] Comment on above: Performed By: #### M Ayan, VIJI, LIPA, CMP ####[facility] Xfgeflgymr[address] [place], [place] [address]Dr. Tadeo Smyth Potassium [Moles/Vol] 4.1 mmol/L Normal 3.5-5.1 [facility] Comment on above: Performed By: #### VIJI White LIPA, CMP ####[facility] Rzafepwwhe[address] [place], [place] [address]Dr. Tadeo Smyth Protein [Mass/Vol] 7.2 g/dL Normal 6.4-8.2 [facility] Comment on above: Performed By: #### VIJI White, LIPA, CMP ####[facility] Ouiejobhlm[address] [place], [place] [address]Dr. Tadeo Smyth Sodium [Moles/Vol] 140 mmol/L Normal 136-145 [facility] Comment on above: Performed By: #### M Ayan, VIJI, LIPA, CMP ####[facility] Pzmcbrumxo[address] [place], [place] [address]Dr. Tadeo Smyth Urea nitrogen [Mass/Vol] 15.0 mg/dL Normal 7.0-18.0 [facility] Comment on above: Performed By: #### M Ayan, VIJI, LIPA, CMP ####[facility] Gqecuxytyj[address] [place], [place] [address]Dr. Tadeo Smyth Urea nitrogen/Creatinine [Mass ratio] 20.8 mg/mg Normal [facility] Comment on above: Performed By: #### M Ayan, VIJI, LIPA, CMP ####[facility] [address]wsdlgvel[address] [place] [address]Dr. Tadeo Smyth UA RANDOM W/MICROSCOPICon BACTERIA TRACE Abnormal NONE SEEN [facility] Comment on above: Performed By: #### U AMIC ####[facility] Pgvxoztlms[address] [place] [address]Dr. Tadeo Smyth Bilirubin Ql (U) Negative Normal NEGATIVE [facility] Comment on above: Performed By: #### U AMIC ####[facility] [address]zgsyvlhiu[address] [place] [address]Dr. Tadeo Smyth CAST NONE SEEN Normal NONE SEEN [facility] Comment on above: Performed By: #### U AMIC ####[facility] Jkjkdztrto[address] [place], [place] [address]Dr. Tadeo Smyth Clarity (U) CLEAR Normal CLEAR [facility] Comment on above: Performed By: #### U AMIC ####[facility] Xxnxvejpfl[address] [place], [place] [address]Dr. Tadeo Smyth Color (U) LT. YELLOW Normal YELLOW [facility] Comment on above: Performed By: #### U AMIC ####[facility] Uctttvvqsm[address] [place], [place] [address]Dr. Tadeo Smyth Crystals LM Nom (Urine sed) NONE SEEN Normal NONE SEEN [facility] Comment on above: Performed By: #### U AMIC ####[facility] Kwoaufizbi[address] [place], [place] [address]Dr. Tadeo Smyth Epithelial cells LM Ql (Urine sed) RARE Normal NONE SEEN /RARE [facility] Comment on above: Performed By: #### U AMIC ####[facility] Ygjiedqwmx[address] [place], [place] [address]Dr. Tadeo Smyth Glucose Ql (U) Negative Normal NEGATIVE [facility] Comment on above: Performed By: #### U AMIC ####[facility] Nsvbygddce[address] [place], [place] [address]Dr. Tadeo Smyth Hemoglobin Ql (U) TRACE-LYSED Abnormal NEGATIVE [facility] Comment on above: Performed By: #### U AMIC ####[facility] Qbyjkbssib[address] [place], [place] [address]Dr. Tadeo Smyth Ketones Ql (U) Negative Normal NEGATIVE [facility] Comment on above: Performed By: #### U AMIC ####[facility] [address]pg[address] [place] [address]Dr. Tadeo Smyth LEUKOCYTES Negative Normal NEGATIVE [facility] Comment on above: Performed By: #### U AMIC ####[facility] Vlddkwlmcy[address] [place] [address]Dr. Tadeo Smyth MUCOUS NONE SEEN Normal NONE SEEN [facility] Comment on above: Performed By: #### U AMIC ####[facility] Vjc[address]hkzva[address] [place] [address]Dr. Tadeo Smyth Nitrite Ql (U) Negative Normal NEGATIVE [facility] Comment on above: Performed By: #### U AMIC ####[facility] Hogsfapwxa[address] [place], [place] [address]Dr. Tadeo Smyth pH (U) 6.0 [pH] Normal 5-9 [facility] Comment on above: Performed By: #### U AMIC ####[facility] Nmggdlnjza[address] [place], [place] [address]Dr. Tadeo Smyth RBC 0-2 Normal 0-2 [facility] Comment on above: Performed By: #### U AMIC ####[facility] Udojwxtlox[address] [place], [place] [address]Dr. Tadeo Smyth SPEC GRAVITY 1.010 Normal 1.005-<=1.0 25 [facility] Comment on above: Performed By: #### U AMIC ####[facility] Sxurrhcsyq[address] [place], [place] [address]Dr. Tadeo Smyth UA PROTEIN Negative Normal NEGATIVE/ TRACE [facility] Comment on above: Performed By: #### U AMIC ####[facility] Uptywphrfl[address] [place], [place] [address]Dr. Tadeo Smyth Urobilinogen Qn (U) 0.2 {Benito'U}/dL Normal 0.2 - 1. 0 [facility] Comment on above: Performed By: #### U AMIC ####[facility] Qx[address]blfmqg64[address] [place] [address]Dr. Tadeo Smyth WBC 0-2 Abnormal NONE SEEN [facility] Comment on above: Performed By: #### U AMIC ####[facility] Rxuwqiuwae[address] [place] [address]DrNeo Smyth Activated partial thrombopla stin time (aPTT) in platelet poor plasma by coagulation aOrdered By: Conner Griffith on 10-26-2022 aPTT Coag (PPP) [Time] 30.8 s 25.1-36.5 [facility] Albumin [Mass/volume] in Ser um or PlasmaOrdered By: Conner Griffith on 10-26-2022 Albumin [Mass/Vol] 3.6 g/dL 3.2-5.5 [facility] Automated erythrocytes count in urine sediment (number/area)Ordered By: Conner Griffith on 10-26-2022 RBC Auto (Urine sed) [#/Area] 0-1 [HPF] 0-4 [facility] Automated leukocytes count i n urine sediment (number/area)Ordered By: Conner Griffith on 10-26-2022 WBC Auto (Urine sed) [#/Area] None seen [HPF] 0-4 [facility] Basophils Auto (Bld) [#/Vol] Ordered By: Conner Griffith on 10-26-2022 Basophils (Bld) [#/Vol] 0.0 10*3/uL 0.0-0.2 [facility] Basophils/100 WBC Auto (Bld) Ordered By: Conner Griffith on 10-26-2022 Basophils/100 WBC (Bld) 0.6 % . [facility] Bilirubin Test strip Ql (U)O rdered By: Conner Griffith on 10-26-2022 Bilirubin Ql (U) Negative Negative [facility] [place] CT abdomen pelvis w conon CT abdomen pelvis w con [facility] [place] [address] CT Scan Report Signed Patient: Constantino Cardoso MR#: [id number] : 1970 Acct:[id number] Age/Sex: 52 / F ADM Date: 10/26/22 Loc: ER Room: Type: [facility] ER Attending Dr: Copies to: [...] Columba Domínguez M.D.10/26/2022 7:46 AM Dictation Location: [place] [address] Transcribed By: [facility] 10/26/22745 Dictated By: Columba Domínguez MD 10/26/22 0738 Signed By: 10/26/22745 [facility] Color Auto (U)Ordered By: [place] Griffith on 10-26-2022 Color (U) Yellow Yellow [facility] Complete Blood Count Auto Di ffon 10-26-2022 Basophils (Bld) [#/Vol] 0.0 10*3/uL Normal 0.0-0.2 [facility] Comment on above: Result Comment: PERF ORMED BY: [place] [address] PATHOLOGIST ASSISTANT PROFESSOR SURGICAL TECHNOLOGY ROOSEVELT KEYES M.D. Performed By: #### H EPATIC, CBC, BMP, LIPASE #### [address] Basophils/100 WBC (Bld) 0.6 % Normal . [facility] Comment on above: Performed By: #### H EPATIC, CBC, BMP, LIPASE #### [address] Eosinophils (Bld) [#/Vol] 0.2 10*3/uL Normal 0.0-0.45 [facility] Comment on above: Performed By: #### H EPATIC, CBC, BMP, LIPASE #### [address] Eosinophils/100 WBC (Bld) 3.3 % Normal . [facility] Comment on above: Performed By: #### H EPATIC, CBC, BMP, LIPASE #### [facility] [address] [place] [address] Erythrocyte distribution width (RBC) [Ratio] 14.5 % Normal 11.9-15.3 [facility] Comment on above: Performed By: #### H EPATIC, CBC, BMP, LIPASE #### [facility] [address] [place] [address] Hematocrit (Bld) [Volume fraction] 36.7 % Normal 34.0-46.4 [facility] Comment on above: Performed By: #### H EPATIC, CBC, BMP, LIPASE #### [facility] [address] [place] [address] Hemoglobin (Bld) [Mass/Vol] 12.1 g/dL Normal 11.8-15.4 [facility] Comment on above: Performed By: #### H EPATIC, CBC, BMP, LIPASE #### [address] Lymphocytes (Bld) [#/Vol] 1.9 10*3/uL Normal 1.00-4.8 [facility] Comment on above: Performed By: #### H EPATIC, CBC, BMP, LIPASE #### [address] Lymphocytes/100 WBC (Bld) 29.7 % Normal . [facility] Comment on above: Performed By: #### H EPATIC, CBC, BMP, LIPASE #### [address] MCH (RBC) [Entitic mass] 29.3 pg Normal 24.7-34.3 [facility] Comment on above: Performed By: #### H EPATIC, CBC, BMP, LIPASE #### [address] MCV (RBC) [Entitic vol] 88.5 fL Normal 80-100 [facility] Comment on above: Performed By: #### H EPATIC, CBC, BMP, LIPASE #### [address] Mean Corpuscular HGB Conc 33.1 g/dL Normal 32.0-35.0 [facility] Comment on above: Performed By: #### H EPATIC, CBC, BMP, LIPASE #### [address] Monocytes (Bld) [#/Vol] 0.4 10*3/uL Normal 0.0-0.8 [facility] Comment on above: Performed By: #### H EPATIC, CBC, BMP, LIPASE #### [address] Monocytes/100 WBC (Bld) 16.27 % Normal 0.00-20.00 [facility] Comment on above: Performed By: #### H EPATIC, CBC, BMP, LIPASE #### [address] Monocytes/100 WBC (Bld) 7.1 % Normal . [facility] Comment on above: Performed By: #### H EPATIC, CBC, BMP, LIPASE #### [facility] [address] [place] [address] Neutrophils (Bld) [#/Vol] 3.7 10*3/uL Normal 1.8-7.7 [facility] Comment on above: Performed By: #### H EPATIC, CBC, BMP, LIPASE #### [address] Neutrophils/100 WBC (Bld) 59.3 % Normal . [facility] Comment on above: Performed By: #### H EPATIC, CBC, BMP, LIPASE #### [address] NRBC% 0.3 /100{WBC} Normal 0-0.5 [facility] Comment on above: Performed By: #### H EPATIC, CBC, BMP, LIPASE #### [address] Platelet mean volume (Bld) [Entitic vol] 7.5 fL Normal 6.3-10.7 [facility] Comment on above: Performed By: #### H EPATIC, CBC, BMP, LIPASE #### [address] Platelets (Bld) [#/Vol] 379 10*3/uL Normal 150-450 [facility] Comment on above: Performed By: #### H EPATIC, CBC, BMP, LIPASE #### [address] RBC (Bld) [#/Vol] 4.14 10*6/uL Normal 3.60-5.00 [facility] Comment on above: Performed By: #### H EPATIC, CBC, BMP, LIPASE #### [address] WBC (Bld) [#/Vol] 6.3 10*3/uL Normal 3.8-11.6 [facility] Comment on above: Performed By: #### H EPATIC, CBC, BMP, LIPASE #### [facility] [address] [place] [address] Comprehensive Metabolic Pane miranda 10-26-2022 Albumin [Mass/Vol] 3.6 g/dL Normal 3.2-5.5 [facility] Comment on above: Performed By: #### H EPATIC, CBC, BMP, LIPASE #### [facility] [address] [place] [address] Albumin/Globulin [Mass ratio] 1.1 {ratio} Normal [facility] Comment on above: Performed By: #### H EPATIC, CBC, BMP, LIPASE #### [facility] [address] [place] [address] ALP [Catalytic activity/Vol] 121 U/L High 32-92 [facility] Comment on above: Performed By: #### H EPATIC, CBC, BMP, LIPASE #### [facility] [address] [place] [address] ALT [Catalytic activity/Vol] 18 U/L Normal 10-60 [facility] Comment on above: Performed By: #### H EPATIC, CBC, BMP, LIPASE #### [facility] [address] [place] [address] Anion gap [Moles/Vol] 11.3 mmol/L Normal 6.0-15.0 [facility] Comment on above: Performed By: #### H EPATIC, CBC, BMP, LIPASE #### [facility] [address] [place] [address] AST [Catalytic activity/Vol] 19 U/L Normal 10-42 [facility] Comment on above: Performed By: #### H EPATIC, CBC, BMP, LIPASE #### [facility] [address] [place] [address] Bilirubin [Mass/Vol] 0.4 mg/dL Normal 0.3-1.2 [facility] Comment on above: Performed By: #### H EPATIC, CBC, BMP, LIPASE #### [facility] [address] [place] [address] Calcium [Mass/Vol] 8.9 mg/dL Normal 8.2-10.2 [facility] Comment on above: Performed By: #### H EPATIC, CBC, BMP, LIPASE #### [facility] [address] Chloride [Moles/Vol] 108 mmol/L Normal 95-114 [facility] Comment on above: Performed By: #### H EPATIC, CBC, BMP, LIPASE #### [facility] [address] [place] [address] CO2 [Moles/Vol] 25.1 mmol/L Normal 22.0-30.0 [facility] Comment on above: Performed By: #### H EPATIC, CBC, BMP, LIPASE #### [address] Creatinine [Mass/Vol] 0.81 mg/dL Normal 0.44-1.03 [facility] Comment on above: Performed By: #### H EPATIC, CBC, BMP, LIPASE #### [facility] [address] [place] [address] Creatinine Clr Calc Pharmacy 93.01 [facility] Comment on above: Performed By: #### H EPATIC, CBC, BMP, LIPASE #### [address] Estimated GFR ( Roberto > 60 [facility] Comment on above: Result Comment: GFR estimated reference range: According to KDOQI guidelines, <60 ml/min/1.73m2 is sufficient to diagnose a patient with chronic kidney disease. Performed By: #### H EPATIC, CBC, BMP, LIPASE #### [facility] [address] [place] [address] Estimated GFR (Non- Am > 60 [facility] Comment on above: Performed By: #### H EPATIC, CBC, BMP, LIPASE #### [address] Globulin (S) [Mass/Vol] 3.2 g/dL [facility] Comment on above: Performed By: #### H EPATIC, CBC, BMP, LIPASE #### [facility] [address] Glucose [Mass/Vol] 95 mg/dL Normal 70-100 [facility] Comment on above: Result Comment: [facility] Glucose Reference Range is dependent on time and content of last meal. Glucose of more than 200 mg/dL in a nonstressed, ambulatory subject supports the diagnosis of Diabetes Mellitus. ADA recommended reference range Performed By: #### H EPATIC, CBC, BMP, LIPASE #### [address] Potassium [Moles/Vol] 3.4 mmol/L Low 3.5-5.1 [facility] Comment on above: Performed By: #### H EPATIC, CBC, BMP, LIPASE #### [address] Protein [Mass/Vol] 6.8 g/dL Normal 6.1-7.9 [facility] Comment on above: Performed By: #### H EPATIC, CBC, BMP, LIPASE #### [address] Sodium [Moles/Vol] 141 mmol/L Normal 136-146 [facility] Comment on above: Performed By: #### H EPATIC, CBC, BMP, LIPASE #### [address] Urea nitrogen [Mass/Vol] 18 mg/dL Normal 9-23 [facility] Comment on above: Performed By: #### H EPATIC, CBC, BMP, LIPASE #### [address] Creatinine and Glomerular fi ltration rate.predicted panel (S/P/Bld)Ordered By: Conner Griffith on 10-26-2022 Creatinine [Mass/Vol] 0.81 mg/dL 0.44-1.03 [facility] Dipstick and Microscopicon 0 10-26-2022 Appearance (U) Clear Normal Clear [facility] Comment on above: Order Comment: Name Collection Type:: Clean-Voided Midstream Performed By: #### H EPATIC, CBC, BMP, LIPASE #### [facility] [address] [place] [address] [place] Bacteria,Urine None Seen Normal None Seen [facility] Comment on above: Order Comment: Name Collection Type:: Clean-Voided Midstream Performed By: #### H EPATIC, CBC, BMP, LIPASE #### [facility] [address] [place] [address] [place] Bilirubin,Urine Negative Normal Negative [facility] Comment on above: Order Comment: Name Collection Type:: Clean-Voided Midstream Performed By: #### H EPATIC, CBC, BMP, LIPASE #### [address] Color (U) Yellow Normal Yellow [facility] Comment on above: Order Comment: Name Collection Type:: Clean-Voided Midstream Performed By: #### H EPATIC, CBC, BMP, LIPASE #### [address] Glucose Ql (U) Normal Normal Normal [facility] Comment on above: Order Comment: Name Collection Type:: Clean-Voided Midstream Performed By: #### H EPATIC, CBC, BMP, LIPASE #### [address] Hyaline Casts,Urine None Seen Normal 0-8 [facility] Comment on above: Order Comment: Name Collection Type:: Clean-Voided Midstream Result Comment: PERF ORMED BY: [place] [address] PATHOLOGIST ASSISTANT PROFESSOR SURGICAL TECHNOLOGY ROOSEVELT KEYES M.D. Performed By: #### H EPATIC, CBC, BMP, LIPASE #### [address] Ketones Ql (U) Negative Normal Negative [facility] Comment on above: Order Comment: Name Collection Type:: Clean-Voided Midstream Performed By: #### H EPATIC, CBC, BMP, LIPASE #### [address] Leukocyte esterase Test strip Ql (U) 1+ High Negative [facility] Comment on above: Order Comment: Name Collection Type:: Clean-Voided Midstream Performed By: #### H EPATIC, CBC, BMP, LIPASE #### [address] Nitrite,Urine Negative Normal Negative [facility] Comment on above: Order Comment: Name Collection Type:: Clean-Voided Midstream Performed By: #### H EPATIC, CBC, BMP, LIPASE #### [address] Occult Blood,Urine Negative Normal Negative [facility] Comment on above: Order Comment: Name Collection Type:: Clean-Voided Midstream Result Comment: PERF ORMED BY: [place] [address] PATHOLOGIST ASSISTANT PROFESSOR SURGICAL TECHNOLOGY ROOSEVELT KEYES M.D. Performed By: #### H EPATIC, CBC, BMP, LIPASE #### [address] pH (U) 6.5 [pH] Normal 5.0-9.0 [facility] Comment on above: Order Comment: Name Collection Type:: Clean-Voided Midstream Performed By: #### H EPATIC, CBC, BMP, LIPASE #### [address] Protein,Urine Negative Normal Negative [facility] Comment on above: Order Comment: Name Collection Type:: Clean-Voided Midstream Performed By: #### H EPATIC, CBC, BMP, LIPASE #### [address] RBC LM.HPF (Urine sed) [#/Area] 0 /[HPF] Normal 0-4 [facility] Comment on above: Order Comment: Name Collection Type:: Clean-Voided Midstream Performed By: #### H EPATIC, CBC, BMP, LIPASE #### [address] Specificy Friedens,Urine 1.019 Normal 1.001-1.030 [facility] Comment on above: Order Comment: Name Collection Type:: Clean-Voided Midstream Performed By: #### H EPATIC, CBC, BMP, LIPASE #### [facility] [address] [place] [address] Squamous Epithelial Cell,Urine 1-2 Normal 0-2 [facility] Comment on above: Order Comment: Name Collection Type:: Clean-Voided Midstream Performed By: #### H EPATIC, CBC, BMP, LIPASE #### [facility] [address] [place] [address] Urobilinogen,Urine Normal Normal Normal [facility] Comment on above: Order Comment: Name Collection Type:: Clean-Voided Midstream Performed By: #### H EPATIC, CBC, BMP, LIPASE #### [facility] [address] [place] [address] WBC,Urine None Seen Normal 0-4 [facility] Comment on above: Order Comment: Name Collection Type:: Clean-Voided Midstream Performed By: #### H EPATIC, CBC, BMP, LIPASE #### [facility] [address] [place] [address] Eosinophils Auto (Bld) [#/Vo l]Ordered By: Conner Griffith on 10-26-2022 Eosinophils (Bld) [#/Vol] 0.2 10*3/uL 0.0-0.45 [facility] Eosinophils/100 WBC Auto (Bl d)Ordered By: Conner Griffith on 10-26-2022 Eosinophils/100 WBC (Bld) 3.3 % . [facility] Erythrocyte distribution wid th Auto (RBC) [Ratio]Ordered By: Conner Griffith on 10-26-2022 Erythrocyte distribution width (RBC) [Ratio] 14.5 % 11.9-15.3 [facility] Estimated glomerular filtrat ion rate (GFR) non- AmericanOrdered By: Conner Griffith on 10-26-2022 GFR/1.73 sq M.predicted among non-blacks MDRD (S/P/Bld) [Vol rate/Area] > 60 mL/Min [facility] Globulin Calc (S) [Mass/Vol] Ordered By: Conner Griffith on 10-26-2022 Globulin (S) [Mass/Vol] 3.2 g/dL [facility] Hematocrit Auto (Bld) [Volum e fraction]Ordered By: Conner Griffith on 10-26-2022 Hematocrit (Bld) [Volume fraction] 36.7 % 34.0-46.4 [facility] Hemoglobin [Mass/volume] in BloodOrdered By: Conner Griffith on 10-26-2022 Hemoglobin (Bld) [Mass/Vol] 12.1 g/dL 11.8-15.4 [facility] Ketones Auto test strip (U) [Mass/Vol]Ordered By: Conner Griffith on 10-26-2022 Ketones (U) [Mass/Vol] Negative Negative [facility] Laboratory - Chemistry and C hemistry - challengeOrdered By: Conner Griffith on 10-26-2022 Lipase [Catalytic activity/Vol] 37.0 U/L [facility] Laboratory - CoagulationOrde red By: Conner Griffith on 10-26-2022 PT Coag (PPP) [Time] 10.6 s 9.0-12.9 [facility] Laboratory - UrinalysisOrder ed By: Conner Griffith on 10-26-2022 Hyaline casts LM Ql (Urine sed) None seen [LPF] 0-8 [facility] Lactic Acidon 10-26-2022 Lactate [Moles/Vol] 1.0 mmol/L Normal 0.5-2.2 [facility] Comment on above: Result Comment: PERF ORMED BY: [place] [address] PATHOLOGIST ASSISTANT PROFESSOR SURGICAL TECHNOLOGY ROOSEVELT KEYES M.D. Performed By: #### H EPATIC, CBC, BMP, LIPASE #### [address] Leukocytes [#/volume] correc jun for nucleated erythrocytes in Blood by Automated counOrdered By: Conner Griffith on 10-26-2022 WBC corrected for nucl RBC Auto (Bld) [#/Vol] 6.3 10*3/uL 3.8-11.6 [facility] Lipaseon 10-26-2022 Lipase [Catalytic activity/Vol] 37.0 U/L Normal [facility] Comment on above: Result Comment: PERF ORMED BY: [place] [address] PATHOLOGIST ASSISTANT PROFESSOR SURGICAL TECHNOLOGY ROOSEVELT KEYES M.D. Performed By: #### H EPATIC, CBC, BMP, LIPASE #### [facility] [address] Lymphocytes Auto (Bld) [#/Vo l]Ordered By: Conner Griffith on 10-26-2022 Lymphocytes (Bld) [#/Vol] 1.9 10*3/uL 1.00-4.8 [facility] Lymphocytes/100 WBC Auto (Bl d)Ordered By: Conner Griffith on 10-26-2022 Lymphocytes/100 WBC (Bld) 29.7 % . [facility] MCH Auto (RBC) [Entitic mass ]Ordered By: Conner Griffith on 10-26-2022 MCH (RBC) [Entitic mass] 29.3 pg 24.7-34.3 [facility] MCHC Auto (RBC) [Mass/Vol]Or dered By: Conner Griffith on 10-26-2022 MCHC (RBC) [Mass/Vol] 33.1 g/dL 32.0-35.0 [facility] MCV Auto (RBC) [Entitic vol] Ordered By: Conner Griffith on 10-26-2022 MCV (RBC) [Entitic vol] 88.5 fL 80-100 [facility] Monocyte distribution width [Entitic volume] in Blood by AutomatedOrdered By: Conner Griffith on 10-26-2022 Monocyte distribution width Auto (Bld) [Entitic vol] 16.27 % 0.00-20.00 [facility] Monocytes Auto (Bld) [#/Vol] Ordered By: Conner Griffith on 10-26-2022 Monocytes (Bld) [#/Vol] 0.4 10*3/uL 0.0-0.8 [facility] Monocytes/100 WBC Auto (Bld) Ordered By: Conner Griffith on 10-26-2022 Monocytes/100 WBC (Bld) 7.1 % . [facility] Neutrophils Auto (Bld) [#/Vo l]Ordered By: Conner Griffith on 10-26-2022 Neutrophils (Bld) [#/Vol] 3.7 10*3/uL 1.8-7.7 [facility] Neutrophils/100 WBC Auto (Bl d)Ordered By: Conner Griffith on 10-26-2022 Neutrophils/100 WBC (Bld) 59.3 % . [facility] Nitrite Test strip Ql (U)Ord ered By: Conner Griffith on 10-26-2022 Nitrite Ql (U) Negative Negative [facility] No Panel InformationOrdered By: Conner Griffith on 10-26-2022 Estimated GFR () > 60 mL/Min [facility] Comment on above: GFR estimated refere nce range: According to KDOQI guidelines, <60 ml/min/1.73m2 is sufficient to diagnose a patient with chronic kidney disease. Pharmacy Creatinine Clearance (Chem 93.01 [facility] Nucleated erythrocytes [Pres ence] in Blood by Automated countOrdered By: Conner Griffith on 10-26-2022 Nucleated RBC Auto Ql (Bld) 0.3 /100{WBC} 0-0.5 [facility] Partial Thromboplastin Timeo n 10-26-2022 aPTT Coag (Bld) [Time] 30.8 s Normal 25.1-36.5 [facility] Comment on above: Result Comment: PERF ORMED BY: [place] [address] PATHOLOGIST ASSISTANT PROFESSOR SURGICAL TECHNOLOGY ROOSEVELT KEYES M.D. Performed By: #### H EPATIC, CBC, BMP, LIPASE #### [address] Platelet mean volume Auto (B ld) [Entitic vol]Ordered By: Conner Griffith on 10-26-2022 Platelet mean volume (Bld) [Entitic vol] 7.5 fL 6.3-10.7 [facility] Platelet poor plasma interna tional normalized ratio (INR) by coagulation assay (relatOrdered By: Conner Griffith on 10-26-2022 INR Coag (PPP) [Relative time] 0.9 {INR} [facility] Comment on above: INR Therapeutic Rang [...] 10-26-2022 Platelets (Bld) [#/Vol] 379 10*3/uL 150-450 [facility] Protein Auto test strip (U) [Mass/Vol]Ordered By: Conner Griffith on 10-26-2022 Protein (U) [Mass/Vol] Negative Negative [facility] Protein [Mass/volume] in Ser um or PlasmaOrdered By: Conner Griffith on 10-26-2022 Protein [Mass/Vol] 6.8 g/dL 6.1-7.9 [facility] Prothrombin Time INRon 10-26 INR Coag (PPP) [Relative time] 0.9 {INR} Normal [facility] Comment on above: Result Comment: INR [...] EPATIC, CBC, BMP, LIPASE #### [facility] [address] PT Coag (PPP) [Time] 10.6 s Normal 9.0-12.9 [facility] Comment on above: Performed By: #### H EPATIC, CBC, BMP, LIPASE #### [facility] [address] RBC Auto (Bld) [#/Vol]Ordere d By: Conner Griffith on 10-26-2022 RBC (Bld) [#/Vol] 4.14 10*6/uL 3.60-5.00 [facility] Serum or plasma alanine cooley otransferase measurement without P-5'-P (enzymatic activiOrdered By: Conner Griffith on 10-26-2022 ALT No additional P-5'-P [Catalytic activity/Vol] 18 U/L 10-60 [facility] Serum or plasma albumin/glob ulin mass ratioOrdered By: Conner Griffith on 10-26-2022 Albumin/Globulin [Mass ratio] 1.1 {ratio} [facility] Serum or plasma alkaline augustin sphatase measurement (enzymatic activity/volume)Ordered By: Conner Griffith on 10-26-2022 ALP [Catalytic activity/Vol] 121 U/L 32-92 [facility] Serum or plasma anion gap de terminationOrdered By: Conner Griffith on 10-26-2022 Anion gap [Moles/Vol] 11.3 mmol/L 6.0-15.0 [facility] Serum or plasma aspartate am inotransferase measurement (enzymatic activity/volume)Ordered By: Conner Griffith on 10-26-2022 AST [Catalytic activity/Vol] 19 U/L 10-42 [facility] Serum or plasma calcium julee urement (mass/volume)Ordered By: Conner Griffith on 10-26-2022 Calcium [Mass/Vol] 8.9 mg/dL 8.2-10.2 [facility] Serum or plasma chloride julio surement (moles/volume)Ordered By: Conner Griffith on 10-26-2022 Chloride [Moles/Vol] 108 mmol/L 95-114 [facility] Serum or plasma glucose julee urement (mass/volume)Ordered By: Conner Griffith on 10-26-2022 Glucose [Mass/Vol] 95 mg/dL 70-100 [facility] Comment on above: ADA recommended refe rence rangeRandom Glucose Reference Range is dependent on time and content of last meal. Glucose of more than 200 mg/dL in a nonstressed, ambulatory subject supports the diagnosis of Diabetes Mellitus. Serum or plasma potassium me asurement (moles/volume)Ordered By: Conner Griffith on 10-26-2022 Potassium [Moles/Vol] 3.4 mmol/L 3.5-5.1 [facility] Serum or plasma sodium measu rement (moles/volume)Ordered By: Conner Griffith on 10-26-2022 Sodium [Moles/Vol] 141 mmol/L 136-146 [facility] Serum or plasma total biliru bin measurement (mass/volume)Ordered By: Conner Griffith on 10-26-2022 Bilirubin [Mass/Vol] 0.4 mg/dL 0.3-1.2 [facility] Serum or plasma total carbon dioxide measurement (moles/volume)Ordered By: Conner Griffith on 10-26-2022 CO2 [Moles/Vol] 25.1 mmol/L 22.0-30.0 [facility] Serum or plasma urea nitroge n measurement (mass/volume)Ordered By: Conner Griffith on 10-26-2022 Urea nitrogen [Mass/Vol] 18 mg/dL 9-23 [facility] Specific gravity Auto test s trip (U) [Rel density]Ordered By: Conner Griffith on 10-26-2022 Specific gravity (U) [Rel density] 1.019 1.001-1.030 [facility] Squamous epithelial cells de tection in urine sediment by light microscopyOrdered By: Conner Griffith on 10-26-2022 Epithelial cells.squamous LM Ql (Urine sed) 1-2 [HPF] 0-2 [facility] Urine bacteria detection by automated methodOrdered By: Conner Griffith on 10-26-2022 Bacteria Auto Ql (U) None seen None Seen [facility] Urine clarity by refractomet ry automatedOrdered By: Conner Griffith on 10-26-2022 Clarity Refractometry automated (U) Clear Clear [facility] Urine glucose measurement by automated test strip (mass/volume)Ordered By: Conner Griffith on 10-26-2022 Glucose Auto test strip (U) [Mass/Vol] Normal mg/dL Normal [facility] Urine hemoglobin detection b y automated test stripOrdered By: Conner Griffith on 10-26-2022 Hemoglobin Auto test strip Ql (U) Negative Negative [facility] Urine lactic acid measuremen tOrdered By: Conner Griffith on 10-26-2022 Lactate (U) [Moles/Vol] 1.0 mmol/L 0.5-2.2 [facility] Urine leukocyte esterase det ection by automated test stripOrdered By: Conner Griffith on 10-26-2022 Leukocyte esterase Auto test strip Ql (U) 1+ Negative [facility] Urobilinogen Auto test strip (U) [Mass/Vol]Ordered By: Conner Griffith on 10-26-2022 Urobilinogen (U) [Mass/Vol] Normal mg/dL Normal [facility] WBC Auto (Bld) [#/Vol]Ordere d By: Conner Griffith on 10-26-2022 WBC (Bld) [#/Vol] 6.3 10*3/uL 3.8-11.6 [facility] pH Auto test strip (U)Ordere d By: Conner Griffith on 10-26-2022 pH (U) 6.5 [pH] 5.0-9.0 [facility] Auth for Release of Medical Recordson 10-25-2022 Auth for Release of Medical Records [id number] Normal [facility] CBC AUTO DIFFon 09-21-2022 BASO # 0.0 103/ul Normal 0.0-0.1 [facility] Comment on above: Performed By: #### C BC ####[facility] [address] [place] [address]Dr. Tadeo Smyth Basophils/100 WBC (Bld) 0.4 % Normal 0.2-2.0 [facility] Comment on above: Performed By: #### C BC ####[facility] [address] [place] [address]Dr. Margotnicole Smyth EO # 0.1 103/ul Normal 0.0-0.7 [facility] Comment on above: Performed By: #### C BC ####[facility] [address] [place], [place] [address]Dr. Tadeo Haja Eosinophils/100 WBC (Bld) 1.8 % Normal 0.9-7.0 [facility] Comment on above: Performed By: #### C BC ####[facility] [address] [place] [address]Dr. Tadeo Smyth Erythrocyte distribution width (RBC) [Ratio] 13.8 % Normal 11.0-15.0 [facility] Comment on above: Performed By: #### C BC ####[facility] [address] [place], [place] [address]Dr. Tadeo Smyth Hematocrit (Bld) [Volume fraction] 41.0 % Normal 36.0-48.0 [facility] Comment on above: Performed By: #### C BC ####[facility] [address] [place], [place] [address]Dr. Tadeo Smyth Hemoglobin (Bld) [Mass/Vol] 13.3 g/dL Normal 12.0-16.0 [facility] Comment on above: Performed By: #### C BC ####[facility] [address] [place], [place] [address]Dr. Tadeo Smyth IG # 0.01 10e3/ul Normal 0.00-0.03 [facility] Comment on above: Performed By: #### C BC ####[facility] [address] [place], [place] [address]Dr. Tadeo Smyth IG % 0.1 % Normal 0.0-0.5 [facility] Comment on above: Performed By: #### C BC ####[facility] [address] [place], [place] [address]Dr. Tadeo Smyth LYMPH # 1.7 103/ul Normal 1.2-3.8 [facility] Comment on above: Performed By: #### C BC ####[facility] [address] [place], [place] [address]Dr. Tadeo Smyth Lymphocytes/100 WBC (Bld) 24.8 % Normal 20.5-60.0 [facility] Comment on above: Performed By: #### C BC ####[facility] [address] [place], [place] [address]Dr. Tadeo Smyth MANUAL DIFF REQ NO Normal [facility] Comment on above: Performed By: #### C BC ####[facility] [address] [place] [id number]. Tadeo Smyth MCH (RBC) [Entitic mass] 29.0 pg Normal 26.7-34.0 [facility] Comment on above: Performed By: #### C BC ####[facility] [address] [place] [id number]. Tadeo Smyth MCHC (RBC) [Mass/Vol] 32.4 g/dL Normal 29.9-35.2 [facility] Comment on above: Performed By: #### C BC ####[facility] [address] [place] [id number]. Tadeo Smyth MCV (RBC) [Entitic vol] 89.3 fL Normal 81.0-99.0 [facility] Comment on above: Performed By: #### C BC ####[facility] [address] [place], [place] [address]Dr. Tadeo Haja MONO # 0.5 103/ul Normal 0.3-0.8 [facility] Comment on above: Performed By: #### C BC ####[facility] [address] [place] [address]Dr. Tadeo Haja Monocytes/100 WBC (Bld) 6.9 % Normal 1.7-12.0 [facility] Comment on above: Performed By: #### C BC ####[facility] [address] [place], [place] [address]Dr. Tadeo Smyth NEUT # 4.5 103/ul Normal 1.4-6.5 [facility] Comment on above: Performed By: #### C BC ####[facility] [address] [place], [place] [id number]. Margotnicole Smyth Neutrophils/100 WBC (Bld) 66.0 % Normal 43.0-75.0 [facility] Comment on above: Performed By: #### C BC ####[facility] [address] [place], [place] [id number]. Tadeo Smyth Platelet mean volume (Bld) [Entitic vol] 8.8 fL Critically low 9.5-13.5 [facility] Comment on above: Performed By: #### C BC ####[facility] [address] [place] [id number]. Tadeo Smyth PLT 384 103/ul Normal 150-450 [facility] Comment on above: Performed By: #### C BC ####[facility] [address] [place] [id number]. Tadeo Smyth RBC 4.59 106/ul Normal 4.20-5.40 [facility] Comment on above: Performed By: #### C BC ####[facility] [address] [place] [id number]. Tadeo Smyth WBC 6.8 103/ul Normal 4.0-11.0 [facility] Comment on above: Performed By: #### C BC ####[facility] [address] [place], [place] [address]Dr. Margotnicole Smyth PROF CHEM 8 (BAS METB)on Anion gap [Moles/Vol] 13.8 mmol/L Normal [facility] Comment on above: Performed By: #### B MP ####[facility] [address] [place], [place] [address]Dr. Tadeo Haja Calcium [Mass/Vol] 9.6 mg/dL Normal 8.5-10.1 [facility] Comment on above: Performed By: #### B MP ####[facility] [address] [place], [place] [address]Dr. Tadeo Haja Chloride [Moles/Vol] 106 mmol/L Normal 98-107 [facility] Comment on above: Performed By: #### B MP ####[facility] [address] [place] [address]Dr. Margotnicole Smyth CO2 [Moles/Vol] 25.9 mmol/L Normal 21.0-32.0 [facility] Comment on above: Performed By: #### B MP ####[facility] [address] [place], [place] [address]Dr. Tadeo Haja Creatinine [Mass/Vol] 0.92 mg/dL Normal 0.55-1.02 [facility] Comment on above: Performed By: #### B MP ####[facility] [address] [place] [address]Dr. Tadeo Smyth EGFR-AF KYRGYZ >60 Normal >=60 [facility] Comment on above: Performed By: #### B MP ####[facility] [address] [place] [address]Dr. Tadeo Smyth EGFR-NON AF KYRGYZ >60 Normal >=60 [facility] Comment on above: Performed By: #### B MP ####[facility] [address] [place] [address]Dr. Margotnicole Smyth Glucose [Mass/Vol] 98 mg/dL Normal 74-106 [facility] Comment on above: Performed By: #### B MP ####[facility] [address] [place], [place] [address]Dr. Tadeo Smyth Potassium [Moles/Vol] 3.7 mmol/L Normal 3.5-5.1 [facility] Comment on above: Performed By: #### B MP ####[facility] [address] [place], [place] [address]Dr. Margotnicole Smyth Sodium [Moles/Vol] 142 mmol/L Normal 136-145 [facility] Comment on above: Performed By: #### B MP ####[facility] [facility] Ddfbnvug[address] [place], [place] [address]Dr. Margotnicole Smyth Urea nitrogen [Mass/Vol] 19.0 mg/dL Critically high 7.0-18.0 [facility] Comment on above: Performed By: #### B MP ####[facility] Arcdnzuawh[address] [place], [place] [address]Dr. Tadeo Smyth Urea nitrogen/Creatinine [Mass ratio] 20.7 mg/mg Normal [facility] Comment on above: Performed By: #### B MP ####[facility] Mnblzqgnwm[address] [place], [place] [address]Dr. Tadeo Smyth XR KUB 1 VIEWon 09-21-2022 XR KUB 1 VIEW Normal [facility] Lab Reportson 09-20-2022 Lab Reports [id number]:127 Normal [facility] RAD - CT Reporton 09-20-2022 RAD - CT Report [id number]:127 Normal [facility] RAD - MISCon 09-20-2022 RAD - MISC [id number]:127 Normal [facility] AMYLASEon 09-18-2022 Amylase [Catalytic activity/Vol] 58 U/L Normal 25-115 [facility] Comment on above: Performed By: #### L IPA, CMP, VIJI ####[facility] Gpseglmnzp[address] [place], [place] [address]Dr. Tadeo Smyth CBC AUTO DIFFon 09-18-2022 BASO # 0.0 103/ul Normal 0.0-0.1 [facility] Comment on above: Performed By: #### C BC ####[facility] Trrilwofvd[address] [place], [place] [address]Dr. Tadeo Smyth Basophils/100 WBC (Bld) 0.3 % Normal 0.2-2.0 [facility] Comment on above: Performed By: #### C BC ####[facility] Fcgudoonvr[address] [place], [place] [address]DrNeo Smyth EO # 0.1 103/ul Normal 0.0-0.7 [facility] Comment on above: Performed By: #### C BC ####[facility] Kaanpfivxo[address]25[address] [place], [place] [address]Dr. Tadeo Smyth Eosinophils/100 WBC (Bld) 1.8 % Normal 0.9-7.0 [facility] Comment on above: Performed By: #### C BC ####[facility] Pzvprwifku[address] [place], [place] [address]Dr. Tadeo Smyth Erythrocyte distribution width (RBC) [Ratio] 13.7 % Normal 11.0-15.0 [facility] Comment on above: Performed By: #### C BC ####[facility] Ipvaieriud[address] [place], [place] [address]Dr. Tadeo Smyth Hematocrit (Bld) [Volume fraction] 37.4 % Normal 36.0-48.0 [facility] Comment on above: Performed By: #### C BC ####[facility] [address] [place] [address]DrNeo Tadeo Smyth Hemoglobin (Bld) [Mass/Vol] 12.3 g/dL Normal 12.0-16.0 [facility] Comment on above: Performed By: #### C BC ####[facility] Tqnrxnxbhf4[address] [place], [place] [address]DrNeo Tadeo Smyth IG # 0.02 10e3/ul Normal 0.00-0.03 [facility] Comment on above: Performed By: #### C BC ####[facility] Bofjljdpre5624[address] [place], [place] [address]DrNeo Tadeo Smyth IG % 0.3 % Normal 0.0-0.5 [facility] Comment on above: Performed By: #### C BC ####[facility] Cjybxpgfre676[address] [place], [place] [address]DrNeo Tadeo Smyth LYMPH # 2.2 103/ul Normal 1.2-3.8 [facility] Comment on above: Performed By: #### C BC ####[facility] Kelkjimxhm[address] [place], [place] [address]DrNeo Tadeo Smyth Lymphocytes/100 WBC (Bld) 29.3 % Normal 20.5-60.0 [facility] Comment on above: Performed By: #### C BC ####[facility] Tranprcinz04[address] [place], [place] [address]DrNeo Tadeo Smyth MANUAL DIFF REQ NO Normal [facility] Comment on above: Performed By: #### C BC ####[facility] Ptetzjhbqz6667[address] [place], [place] [address]DrNeo Tadeo Smyth MCH (RBC) [Entitic mass] 29.0 pg Normal 26.7-34.0 [facility] Comment on above: Performed By: #### C BC ####[facility] Hbxxgvtdhb[address] [place], [place] [address]DrNeo Tadeo Haja MCHC (RBC) [Mass/Vol] 32.9 g/dL Normal 29.9-35.2 [facility] Comment on above: Performed By: #### C BC ####[facility] [address] [place] [address]DrNeo Smyth MCV (RBC) [Entitic vol] 88.2 fL Normal 81.0-99.0 [facility] Comment on above: Performed By: #### C BC ####[facility] Acivjmxinh[address]24[address] [place], [place] [address]DrNeo Smyth MONO # 0.5 103/ul Normal 0.3-0.8 [facility] Comment on above: Performed By: #### C BC ####[facility] Rahlizjrtw[address] [place], [place] [address]DrNeo Smyth Monocytes/100 WBC (Bld) 6.4 % Normal 1.7-12.0 [facility] Comment on above: Performed By: #### C BC ####[facility] Xayifljfhz[address] [place], [place] [address]DrNeo Smyth NEUT # 4.7 103/ul Normal 1.4-6.5 [facility] Comment on above: Performed By: #### C BC ####[facility] Ktqdjqtuee34[address] [place], [place] [address]DrNeo Smyth Neutrophils/100 WBC (Bld) 61.9 % Normal 43.0-75.0 [facility] Comment on above: Performed By: #### C BC ####[facility] Jqdzdmuxew6[address] [place], [place] [address]DrNeo Smyth Platelet mean volume (Bld) [Entitic vol] 9.0 fL Critically low 9.5-13.5 [facility] Comment on above: Performed By: #### C BC ####[facility] Ujyrpsoahd[address] [place], [place] [address]DrNeo Smyth PLT 395 103/ul Normal 150-450 [facility] Comment on above: Performed By: #### C BC ####[facility] Nvanggnvbq30[address] [place], [place] [address]DrNeo Smyth RBC 4.24 106/ul Normal 4.20-5.40 [facility] Comment on above: Performed By: #### C BC ####[facility] Sumhyhzycr[address] [place], [place] [address]Dr. Tadeo Smyth WBC 7.6 103/ul Normal 4.0-11.0 [facility] Comment on above: Performed By: #### C BC ####[facility] Xjbzmspmip509[address] [place], [place] [address]Dr. Tadeo Smyth CT ABD/PELV W CONon 09-18-[address] ABD/PELV W CON Normal [facility] ER URINE PROFILEon 3 Bilirubin Ql (U) SMALL Abnormal NEGATIVE [facility] Comment on above: Performed By: #### KAROL MERCHANT ####[facility] Zzsqaibkgu[address] [place], [place] [address]Dr. Tadeo Smyth Clarity (U) CLEAR Normal CLEAR [facility] Comment on above: Performed By: #### KAROL MERCHANT ####[facility] Sztrpllwto4875[address] [place], [place] [address]Dr. Tadeo Smyth Color (U) DK. YELLOW Normal YELLOW [facility] Comment on above: Performed By: #### KAROL MERCHANT ####[facility] Ircmzulqhp[address] [place], [place] [address]Dr. Tadeo CAMARGOD A micrscopic examina tion will be performed if indicated. Normal [facility] Comment on above: Performed By: #### KAROL MERCHANT ####[facility] Rkiucwoabp[address] [place], [place] [address]Dr. Tadeo Smyth Glucose Ql (U) Negative Normal NEGATIVE [facility] Comment on above: Performed By: #### KAROL MERCHANT ####[facility] Eeggmaouki[address] [place], [place] [address]Dr. Tadeo Smyth Hemoglobin Ql (U) SMALL Abnormal NEGATIVE [facility] Comment on above: Performed By: #### KAROL MERCHANT ####[facility] Baozuxvxnc039[address] [place], [place] [address]Dr. Tadeo Smyth Ketones Ql (U) Negative Normal NEGATIVE [facility] Comment on above: Performed By: #### SANDRO MERCHANTRO ####[facility] Chiiezxmle[address]39[address] [place], [place] [address]Dr. Tadeo Smyth LEUKOCYTES Negative Normal NEGATIVE [facility] Comment on above: Performed By: #### Matthew FRANCISCO UMICRO ####[facility] [address] [place] [address]Dr. Tadeo Smyth Nitrite Ql (U) Negative Normal NEGATIVE [facility] Comment on above: Performed By: #### Matthew FRANCISCO UMICRO ####[facility] Nwbhfaxuxj216[address] [place], [place] [address]Dr. Tadeo Smyth pH (U) 5.5 [pH] Normal 5-9 [facility] Comment on above: Performed By: #### RANDI MERCHANTICRO ####[facility] Symagxoexu4[address] [place], [place] [address]Dr. Tadeo Smyth SPEC GRAVITY >=1.030 Abnormal 1.005-<=1.0 25 [facility] Comment on above: Performed By: #### RANDI MERCHANTICRO ####[facility] Obvubutwfw[address] [place], [place] [address]Dr. Tadeo Smyth UA PROTEIN TRACE Normal NEGATIVE/ TRACE [facility] Comment on above: Performed By: #### Matthew FRANCISCO UMICRO ####[facility] Fttonilcpc[address] [place], [place] [address]Dr. Tadeo Smyth UR MICRO IND INDICATED Normal [facility] Comment on above: Performed By: #### RANDI MERCHANTICRO ####[facility] Jcowzkheey[address] [place], [place] [address]Dr. Tadeo Smyth Urobilinogen Qn (U) 0.2 {Benito'U}/dL Normal 0.2 - 1. 0 [facility] Comment on above: Performed By: #### RANDI MERCHANTICRO ####[facility] Nipjsupbdv6439[address] [place], [place] [address]Dr. Tadeo Smyth LACTATE/LACTIC ACIDon 2022 Lactate [Moles/Vol] 1.1 mmol/L Normal 0.4-1.9 [facility] Comment on above: Performed By: #### L ACT ####[facility] [address] [place] [address]Dr. Tadeo Smyth LIPASEon 09-18-2022 Lipase [Catalytic activity/Vol] 75.0 U/L Normal 73.0-393.0 [facility] Comment on above: Performed By: #### L IPA, CMP, VIJI ####[facility] Loelkunbnu[address] [place], [place] [address]Dr. Tadeo Smyth PROF 14(COMP METB)on 023 Albumin [Mass/Vol] 3.4 g/dL Normal 3.4-5.0 [facility] Comment on above: Performed By: #### L IPA, CMP, VIJI ####[facility] Ibsqfjwerf[address]37[address] [place], [place] [address]Dr. Tadeo Smyth Albumin/Globulin [Mass ratio] 0.9 {ratio} Normal [facility] Comment on above: Performed By: #### L IPA, CMP, VIJI ####[facility] Qgahgsvlmx[address] [place], [place] [address]Dr. Tadeo Smyth ALP [Catalytic activity/Vol] 164 U/L Critically high 46-116 [facility] Comment on above: Performed By: #### L IPA, CMP, VIJI ####[facility] Nyjnptgfyv[address] [place], [place] [address]Dr. Tadeo Smyth ALT [Catalytic activity/Vol] 29 U/L Normal 14-59 [facility] Comment on above: Performed By: #### L IPA, CMP, VIJI ####[facility] [address] [place] [address]Dr. Tadeo Smyth Anion gap [Moles/Vol] 12.3 mmol/L Normal [facility] Comment on above: Performed By: #### L IPA, CMP, VIJI ####[facility] Zipmiyzgjj[address]35[address] [place], [place] [address]Dr. Tadeo Smyth AST [Catalytic activity/Vol] 30 U/L Normal 15-37 [facility] Comment on above: Performed By: #### L IPA, CMP, VIJI ####[facility] Ngbxzmdfml8616[address] [place], [place] [address]Dr. Tadeo Smyth Bilirubin [Mass/Vol] 0.3 mg/dL Normal 0.2-1.0 [facility] Comment on above: Performed By: #### L IPA, CMP, VIJI ####[facility] Ftxeqrqagw214[address] [place], [place] [address]Dr. Tadeo Smyth Calcium [Mass/Vol] 8.9 mg/dL Normal 8.5-10.1 [facility] Comment on above: Performed By: #### L IPA, CMP, VIJI ####[facility] Fjbntztfwp23[address] [place], [place] [address]Dr. Tadeo Smyth Chloride [Moles/Vol] 103 mmol/L Normal 98-107 [facility] Comment on above: Performed By: #### L IPA, CMP, VIJI ####[facility] Ldhxeaobry[address]18[address] [place], [place] [address]Dr. Tadeo Smyth CO2 [Moles/Vol] 27.8 mmol/L Normal 21.0-32.0 [facility] Comment on above: Performed By: #### L IPA, CMP, VIJI ####[facility] Xrkcbqpisd[address] [place], [place] [address]Dr. Tadeo Smyth Creatinine [Mass/Vol] 0.89 mg/dL Normal 0.55-1.02 [facility] Comment on above: Performed By: #### L IPA, CMP, VIJI ####[facility] Prjdviofoq[address]16[address] [place], [place] [address]Dr. Tadeo Smyth EGFR-AF KYRGYZ >60 Normal >=60 [facility] Comment on above: Performed By: #### L IPA, CMP, VIJI ####[facility] Jspwgubvfd7434[address] [place], [place] [address]Dr. Tadeo Smyth EGFR-NON AF KYRGYZ >60 Normal >=60 [facility] Comment on above: Performed By: #### L IPA, CMP, VIJI ####[facility] Tfwxzzhfsd[address] [place], [place] [address]Dr. Tadeo Smyth Globulin (S) [Mass/Vol] 3.9 g/dL Normal [facility] Comment on above: Performed By: #### L IPA CMP, VIJI ####[facility] [address] [place] [address]Dr. Tadeo Smyth Glucose [Mass/Vol] 96 mg/dL Normal 74-106 [facility] Comment on above: Performed By: #### L IPA CMP, VIJI ####[facility] R[address]wsqdegi[address] [place] [address]Dr. Tadeo Smyth Potassium [Moles/Vol] 4.1 mmol/L Normal 3.5-5.1 [facility] Comment on above: Performed By: #### L IPA CMP, VIJI ####[facility] Wrvycojdug255[address] [place], [place] [address]Dr. Tadeo Smyth Protein [Mass/Vol] 7.3 g/dL Normal 6.4-8.2 [facility] Comment on above: Performed By: #### L IPA CMP, VIJI ####[facility] Pkfhkagrvc[address]46[address] [place], [place] [address]Dr. Tadeo Smyth Sodium [Moles/Vol] 139 mmol/L Normal 136-145 [facility] Comment on above: Performed By: #### L IPA CMP, VIJI ####[facility] Idvdiiazgn799[address] [place], [place] [address]Dr. Tadeo Smyth Urea nitrogen [Mass/Vol] 19.0 mg/dL Critically high 7.0-18.0 [facility] Comment on above: Performed By: #### L IPA CMP, VIJI ####[facility] Ihgsuimcdl[address] [place], [place] [address]Dr. Tadeo Smyth Urea nitrogen/Creatinine [Mass ratio] 21.3 mg/mg Normal [facility] Comment on above: Performed By: #### L IPA CMP, VIJI ####[facility] [address] [place] [address]Dr. Tadeo Smyth URINE MICROSCOPIC ONLYon BACTERIA TRACE Abnormal NONE SEEN [facility] Comment on above: Performed By: #### KAROL MERCHANT ####[facility] Gcoofhrwtt4[address] [place], [place] [address]Dr. Tadeo Smyth Bacteria identified Cx Nom (U) NOT INDICATED Normal [facility] Comment on above: Performed By: #### KAROL MERCHANT ####[facility] Zgmbuckzae[address] [place], [place] [address]Dr. Tadeo Smyth CAST NONE SEEN Normal NONE SEEN [facility] Comment on above: Performed By: #### SANDRO MERCHANTRO ####[facility] Bxjciujseo3465[address] [place], [place] [address]Dr. Tadeo Smyth Crystals LM Nom (Urine sed) SEEN Abnormal NONE SEEN [facility] Comment on above: Performed By: #### SANDRO MERCHANTRO ####[facility] Pfgcsfhrpi[address] [place], [place] [address]Dr. Tadeo Smyth Epithelial cells LM Ql (Urine sed) RARE Normal NONE SEEN /RARE [facility] Comment on above: Performed By: #### SANDRO MERCHANTRO ####[facility] Lvlfnaiimg265[address] [place], [place] [address]Dr. Tadeo Smyth MUCOUS TRACE Abnormal NONE SEEN [facility] Comment on above: Performed By: #### SANDRO MERCHANTRO ####[facility] Oeulelevna9[address] [place], [place] [address]Dr. Tadeo Smyth RBC 0-2 Normal 0-2 [facility] Comment on above: Performed By: #### SANDRO MERCHANTRO ####[facility] P[address]foqhvzp[address]67[address] [place], [place] [address]Dr. Tadeo Smyth WBC 0-2 Abnormal NONE SEEN [facility] Comment on above: Performed By: #### SANDRO MERCHANTRO ####[facility] Nwevhtxrji264[address] [place], [place] [address]Dr. Tadeo Smyth CBC AUTO DIFFon 09-14-2022 BASO # 0.0 103/ul Normal 0.0-0.1 [facility] Comment on above: Performed By: #### C BC ####[facility] Dyehlgjqta[address] [place], [place] [address]Dr. Tadeo Smyth Basophils/100 WBC (Bld) 0.3 % Normal 0.2-2.0 [facility] Comment on above: Performed By: #### C BC ####[facility] Bxifxerpld502[address] [place], [place] [address]Dr. Tadeo Smyth EO # 0.2 103/ul Normal 0.0-0.7 [facility] Comment on above: Performed By: #### C BC ####[facility] Peupoixkth[address]18[address] [place], [place] [address]Dr. Tadeo Smyth Eosinophils/100 WBC (Bld) 1.1 % Normal 0.9-7.0 [facility] Comment on above: Performed By: #### C BC ####[facility] Azzmjkngyj613[address] [place], [place] [address]Dr. Tadeo Smyth Erythrocyte distribution width (RBC) [Ratio] 13.7 % Normal 11.0-15.0 [facility] Comment on above: Performed By: #### C BC ####[facility] Ubgknqoomh[address]33[address] [place], [place] [address]Dr. Tadeo Smyth Hematocrit (Bld) [Volume fraction] 41.3 % Normal 36.0-48.0 [facility] Comment on above: Performed By: #### C BC ####[facility] N[address]qqpnuqlc[address] [place], [place] [address]Dr. Tadeo Smyth Hemoglobin (Bld) [Mass/Vol] 13.6 g/dL Normal 12.0-16.0 [facility] Comment on above: Performed By: #### C BC ####[facility] Ucfsewcvgc6[address] [place], [place] [address]Dr. Tadeo Smyth IG # 0.05 10e3/ul Critically high 0.00-0.03 [facility] Comment on above: Performed By: #### C BC ####[facility] Nzwyinfmhd[address] [place], [place] [address]Dr. Tadeo Smyth IG % 0.4 % Normal 0.0-0.5 [facility] Comment on above: Performed By: #### C BC ####[facility] Toemjjsgqx8816[address] [place], [place] [address]Dr. Tadeo Smyth LYMPH # 2.2 103/ul Normal 1.2-3.8 [facility] Comment on above: Performed By: #### C BC ####[facility] [address] [place] [address]DrNeo Smyth Lymphocytes/100 WBC (Bld) 16.3 % Critically low 20.5-60.0 [facility] Comment on above: Performed By: #### C BC ####[facility] [address] [place] [address]DrNeo Smyth MANUAL DIFF REQ NO Normal [facility] Comment on above: Performed By: #### C BC ####[facility] Z[address]pe[address] [place] [address]DrNeo Smyth MCH (RBC) [Entitic mass] 28.9 pg Normal 26.7-34.0 [facility] Comment on above: Performed By: #### C BC ####[facility] Zmesvsrvfr[address] [place], [place] [address]DrNeo Smyth MCHC (RBC) [Mass/Vol] 32.9 g/dL Normal 29.9-35.2 [facility] Comment on above: Performed By: #### C BC ####[facility] C[address]fhytczyh[address] [place], [place] [address]DrNeo Smyth MCV (RBC) [Entitic vol] 87.9 fL Normal 81.0-99.0 [facility] Comment on above: Performed By: #### C BC ####[facility] Xzttumzsrc[address] [place], [place] [address]DrNeo Smyth MONO # 0.7 103/ul Normal 0.3-0.8 [facility] Comment on above: Performed By: #### C BC ####[facility] Ydpjidbyrf[address] [place], [place] [address]DrNeo Smyth Monocytes/100 WBC (Bld) 5.1 % Normal 1.7-12.0 [facility] Comment on above: Performed By: #### C BC ####[facility] Oacwmpfmzj[address] [place], [place] [address]DrNeo Smyth NEUT # 10.3 103/ul Critically high 1.4-6.5 [facility] Comment on above: Performed By: #### C BC ####[facility] [address]df[address]ro[address] [place] [address]Dr. Tadeo Smyth Neutrophils/100 WBC (Bld) 76.8 % Critically high 43.0-75.0 [facility] Comment on above: Performed By: #### C BC ####[facility] Kaqzwgrpff[address] [place], [place] [address]Dr. Margotnicole Smyth Platelet mean volume (Bld) [Entitic vol] 8.8 fL Critically low 9.5-13.5 [facility] Comment on above: Performed By: #### C BC ####[facility] Exrgafcrva[address] [place], [place] [address]Dr. Tadeo Smyth PLT 438 103/ul Normal 150-450 [facility] Comment on above: Performed By: #### C BC ####[facility] Imfhnwgwmr[address] [place], [place] [address]Dr. Tadeo Smyth RBC 4.70 106/ul Normal 4.20-5.40 [facility] Comment on above: Performed By: #### C BC ####[facility] Ibijyztwts[address]64[address] [place], [place] [address]Dr. Tadeo Smyth WBC 13.4 103/ul Critically high 4.0-11.0 [facility] Comment on above: Performed By: #### C BC ####[facility] Ngmmcpaztg[address]20[address] [place], [place] [address]Dr. Tadeo Smyth ER URINE PROFILEon 3 Bilirubin Ql (U) Negative Normal NEGATIVE [facility] Comment on above: Performed By: #### SANDRO MERCHANTRO ####[facility] Jrhhqxdtsw[address] [place], [place] [address]Dr. Tadeo Smyth Clarity (U) CLEAR Normal CLEAR [facility] Comment on above: Performed By: #### SANDRO MERCHANTRO ####[facility] [address]sem[address] [place] [address]Dr. Tadeo Smyth Color (U) LT. YELLOW Normal YELLOW [facility] Comment on above: Performed By: #### KAROL MERCHANT ####[facility] Poevxnhsud[address] [place], [place] [address]Dr. Tadeo ENG A micrscopic examina tion will be performed if indicated. Normal [facility] Comment on above: Performed By: #### SANDRO MERCHANTRO ####[facility] Bmvleafciv[address] [place], [place] [address]Dr. Tadeo Smyth Glucose Ql (U) Negative Normal NEGATIVE [facility] Comment on above: Performed By: #### SANDRO MERCHANTRO ####[facility] Fvxlpnxfko[address] [place], [place] [address]Dr. Tadeo Smyth Hemoglobin Ql (U) TRACE-INTACT Abnormal NEGATIVE [facility] Comment on above: Performed By: #### KAROL MERCHANT ####[facility] Suxjs[address]jntq[address] [place], [place] [address]Dr. Tadeo Smyth Ketones Ql (U) Negative Normal NEGATIVE [facility] Comment on above: Performed By: #### SANDRO MERCHANTRO ####[facility] [address]vfgjbnfde[address] [place], [place] [address]Dr. Tadeo Smyth LEUKOCYTES Negative Normal NEGATIVE [facility] Comment on above: Performed By: #### KAROL MERCHANT ####[facility] Jkzwkcgabi[address] [place], [place] [address]Dr. Tadeo Smyth Nitrite Ql (U) Negative Normal NEGATIVE [facility] Comment on above: Performed By: #### KAROL MERCHANT ####[facility] Kwqfwkks[address] [place], [place] [address]Dr. Tadeo Smyth pH (U) 6.5 [pH] Normal 5-9 [facility] Comment on above: Performed By: #### KAROL MERCHANT ####[facility] Nuhhefgnqc[address] [place], [place] [address]Dr. Tadeo Smyth SPEC GRAVITY 1.020 Normal 1.005-<=1.0 25 [facility] Comment on above: Performed By: #### KAROL MERCHANT ####[facility] Ndnwfxaswn[address] [place] [address]Dr. Tadeo Smyth UA PROTEIN Negative Normal NEGATIVE/ TRACE [facility] Comment on above: Performed By: #### KAROL MERCHANT ####[facility] Bqlaidbytq1072 [place] [address]Dr. Tadeo Smyth UR MICRO IND INDICATED Normal [facility] Comment on above: Performed By: #### KAROL MERCHANT ####[facility] Sezkqimben0014 [place] [address]Dr. Tadeo Smyth Urobilinogen Qn (U) 0.2 {Benito'U}/dL Normal 0.2 - 1. 0 [facility] Comment on above: Performed By: #### KAROL MERCHANT ####[facility] Bzcrytce[address] [place], [place] [address]Dr. Tadeo Smyth LIPASEon 09-14-2022 Lipase [Catalytic activity/Vol] 117.0 U/L Normal 73.0-393.0 [facility] Comment on above: Performed By: #### H STROPN, CMP, LIPA ####[facility] Iwxdsgjud[address] [place], [place] [address]Dr. Tadeo Smyth PROF 14(COMP METB)on 023 Albumin [Mass/Vol] 3.5 g/dL Normal 3.4-5.0 [facility] Comment on above: Performed By: #### H STROPN, CMP, LIPA ####[facility] Hknbiklmdd3453 [place] [address]Dr. Tadeo Smyth Albumin/Globulin [Mass ratio] 0.8 {ratio} Normal [facility] Comment on above: Performed By: #### H STROPN, CMP, LIPA ####[facility] Grremoqaiw6307 [place] [address]Dr. Tadeo Smyth ALP [Catalytic activity/Vol] 180 U/L Critically high 46-116 [facility] Comment on above: Performed By: #### H STROPN, CMP, LIPA ####[facility] Piimybymha3959 [place] [address]Dr. Tadeo Smyth ALT [Catalytic activity/Vol] 25 U/L Normal 14-59 [facility] Comment on above: Performed By: #### H STROPN, CMP, LIPA ####[facility] Melbztvmsv1394 [place] [address]Dr. Tadeo Smyth Anion gap [Moles/Vol] 14.4 mmol/L Normal Th e [facility] Comment on above: Performed By: #### H STROPN, CMP, LIPA ####[facility] Umtvdzepln2437 [place] [address]Dr. Tadeo Smyth AST [Catalytic activity/Vol] 14 U/L Critically low 15-37 [facility] Comment on above: Performed By: #### H STROPN, CMP, LIPA ####[facility] Sskfgvbfnk7993 [place] [address]Dr. Tadeo Smyth Bilirubin [Mass/Vol] 0.2 mg/dL Normal 0.2-1.0 [facility] Comment on above: Performed By: #### H STROPN, CMP, LIPA ####[facility] Uzmokbluzn[address] [place], [place] [address]Dr. Tadeo Smyth Calcium [Mass/Vol] 9.4 mg/dL Normal 8.5-10.1 [facility] Comment on above: Performed By: #### H STROPN, CMP, LIPA ####[facility] Etwxifeuuo5634 [place] [address]Dr. Tadeo Smyth Chloride [Moles/Vol] 107 mmol/L Normal 98-107 [facility] Comment on above: Performed By: #### H STROPN, CMP, LIPA ####[facility] Yacdodupof[address] [place], [place] [address]Dr. Tadeo Smyth CO2 [Moles/Vol] 23.9 mmol/L Normal 21.0-32.0 [facility] Comment on above: Performed By: #### H STROPN, CMP, LIPA ####[facility] Yeeczevsba6906 [place] [address]Dr. Tadeo Smyth Creatinine [Mass/Vol] 0.91 mg/dL Normal 0.55-1.02 [facility] Comment on above: Performed By: #### H STROPN, CMP, LIPA ####[facility] Jxbetdkern0089 [place] [address]Dr. Tadeo Smyth EGFR-AF KYRGYZ >60 Normal >=60 [facility] Comment on above: Performed By: #### H STROPN, CMP, LIPA ####[facility] Eqgujdearu7495 [place] [address]Dr. Tadeo Smyth EGFR-NON AF KYRGYZ >60 Normal >=60 [facility] Comment on above: Performed By: #### H STROPN, CMP, LIPA ####[facility] Ugvlxnubrv8878 [place] [address]Dr. Tadeo Smyth Globulin (S) [Mass/Vol] 4.2 g/dL Normal [facility] Comment on above: Performed By: #### H STROPN, CMP, LIPA ####[facility] Bdytcymswg4189 [place] [address]Dr. Tadeo Smyth Glucose [Mass/Vol] 101 mg/dL Normal 74-106 [facility] Comment on above: Performed By: #### H STROPN, CMP, LIPA ####[facility] Jnkopcxryq7733 [place] [address]Dr. Tadeo Smyth Potassium [Moles/Vol] 3.3 mmol/L Critically low 3.5-5.1 [facility] Comment on above: Performed By: #### H STROPN, CMP, LIPA ####[facility] Ufmkigmhta5726 [place] [address]Dr. Tadeo Smyth Protein [Mass/Vol] 7.7 g/dL Normal 6.4-8.2 [facility] Comment on above: Performed By: #### H STROPN, CMP, LIPA ####[facility] Xvzemvuitu2226 [place] [address]Dr. Tadeo Smyth Sodium [Moles/Vol] 142 mmol/L Normal 136-145 [facility] Comment on above: Performed By: #### H STROPN, CMP, LIPA ####[facility] Giekvjsxzc2879 [place] [address]Dr. Tadeo Smyth Urea nitrogen [Mass/Vol] 17.0 mg/dL Normal 7.0-18.0 [facility] Comment on above: Performed By: #### H DIANN FIGUEROA, LIPA ####[facility] Lbxccfwfkw3740 [place] [address]Dr. Tadeo Smyth Urea nitrogen/Creatinine [Mass ratio] 18.7 mg/mg Normal [facility] Comment on above: Performed By: #### Juan Luis FIGUEROA CMP, LIPA ####[facility] Rkevqyqzkg6966 [place] [address]Dr. Tadeo Smyth TROPONIN, HIGH SENSITIVITYon 09-14-2022 HSTROP 46.6 pg/mL Normal 4.0-51.3 [facility] Comment on above: Result Comment: CUT- OFF POINTS HAVE BEEN ESTABLISHED BASED ON THE FOURTH UNIVERSAL DEFINITIONS OF MYOCARDIALINFARCTION. THE UPPER REFERENCE LIMIT (URL) OF TROPONIN, DEFINED THE 99TH PERCENTILE OFcTnI DISTRIBUTION IN A REFERENCE POPULATION, HAS BEEN CONFIRMED THE DECISION THRESHOLDFOR [place] DIAGNOSIS. Performed By: #### Juan Luis FIGUEROA CMP LIPA ####[facility] Blimalubhs8426 [place] [address]Dr. Tadeo Haja URINE MICROSCOPIC ONLYon BACTERIA NONE SEEN Normal NONE SEEN [facility] Comment on above: Performed By: #### SANDRO MERCHANTRO ####[facility] Stenrrosre[address] [place] [address]Dr. Tadeo Smyth Bacteria identified Cx Nom (U) NOT INDICATED Normal [facility] Comment on above: Performed By: #### SANDRO MERCHANTRO ####[facility] Iwjovuwphf2264 [place] [address]Dr. Tadeo Smyth CAST NONE SEEN Normal NONE SEEN [facility] Comment on above: Performed By: #### SANDRO MERCHANTRO ####[facility] Mwcrytulma1989 [place] [address]Dr. Tadeo Smyth Crystals LM Nom (Urine sed) NONE SEEN Normal NONE SEEN [facility] Comment on above: Performed By: #### SANDRO MERCHANTRO ####[facility] Cttbbaxtmm0291 [place] [phone]. Tadeo Smyth Epithelial cells LM Ql (Urine sed) FEW Abnormal NONE SEEN /RARE [facility] Comment on above: Performed By: #### KAROL MERCHANT ####[facility] Dhfnkvafbo9801 [place] [phone]. Tadeo Smyth MUCOUS MODERATE Abnormal NONE SEEN [facility] Comment on above: Performed By: #### SANDRO MERCHANTRO ####[facility] Rlkxkmxvou3455 [place] [phone]. Tadeo Smyth RBC 0-2 Normal 0-2 [facility] Comment on above: Performed By: #### KAROL MERCHANT ####[facility] Fjmawvoodi5081 [place] [address]Dr. Tadeo Smyth WBC NONE SEEN Normal NONE SEEN [facility] Comment on above: Performed By: #### KAROL MERCHANT ####[facility] Brfsbxbxyp8925 [place] [address]Dr. Tadeo Smyth XR ABD FLAT UP_PA Kasey 09-14 XR ABD FLAT UP_PA CH Normal [facility] VC COMP CONSULTATIONon 09-06 VC COMP CONSULTATION Normal [facility] VC VENOUS REFLUX MACARIO LMTon 0 09-06-2022 VC VENOUS REFLUX MACARIO LMT Normal [facility] XR KUB 1 VIEWon 08-18-2022 XR KUB 1 VIEW Normal [facility] US RUBENS DOP LEG RTon 08-11-20 US RUBENS DOP LEG RT Normal [facility] Provider Letteron 08-10-2022 Provider Letter (Inserted Image. Kristin ble to display) August 10, 2022 CONSTANTINO CARDOSO [address] [place] [address] CONSTANTINO CARDOSO 1970 Dear Constantino, We have been trying to reach you with no success. It is important that you return our call regarding your referral. Thank you for your prompt attention to this matter. Sincerely, [facility] Normal [facility] AMYLASEon 08-08-2022 Amylase [Catalytic activity/Vol] 64 U/L Normal 25-115 [facility] Comment on above: Performed By: #### C MP, VIJI, LIPA, CMADM ####[facility] Fqmhwbgkyu7144 [place] [address]Dr. Tadeo Smyth CARDIAC NORA ADMITon 022 CK [Catalytic activity/Vol] 127 U/L Normal 26-192 [facility] Comment on above: Performed By: #### C MP, VIJI, LIPA, CMADM ####[facility] Wjnvvmjwxu2418 [place] [address]Dr. Tadeo Smyth CK.MB [Mass/Vol] 1.71 ng/mL Normal <=3.60 [facility] Comment on above: Performed By: #### C MP, VIJI, LIPA, CMADM ####[facility] Sfgicdhlyd8939 [place] [address]Dr. Tadeo Smyth HSTROP 36.7 pg/mL Normal 4.0-51.3 [facility] Comment on above: Result Comment: CUT- OFF POINTS HAVE BEEN ESTABLISHED BASED ON THE FOURTH UNIVERSAL DEFINITIONS OF MYOCARDIALINFARCTION. THE UPPER REFERENCE LIMIT (URL) OF TROPONIN, DEFINED THE 99TH PERCENTILE OFcTnI DISTRIBUTION IN A REFERENCE POPULATION, HAS BEEN CONFIRMED THE DECISION THRESHOLDFOR [place] DIAGNOSIS. Performed By: #### C MP, VIJI, LIPA, CMADM ####[facility] Ivwyvejqib[address] [place], [place] [address]Dr. Tadeo Smyth AAKASH 23 ng/mL Normal 9-82 [facility] Comment on above: Performed By: #### C MP, VIJI, LIPA, CMADM ####[facility] Vjkwhuqkjf7276 [place] [address]Dr. Tadeo Smyth CBC AUTO DIFFon 08-08-2022 BASO # 0.0 103/ul Normal 0.0-0.1 [facility] Comment on above: Performed By: #### C BC ####[facility] Cjvrsuwewk9159 [place] [address]Dr. Tadeo Haja Basophils/100 WBC (Bld) 0.4 % Normal 0.2-2.0 [facility] Comment on above: Performed By: #### C BC ####[facility] N[address]va[address] [place], [place] [id number]. Tadeo Symth EO # 0.1 103/ul Normal 0.0-0.7 [facility] Comment on above: Performed By: #### C BC ####[facility] Cjmixjrfre2500 [place] [address]Dr. Tadeo Smyth Eosinophils/100 WBC (Bld) 1.5 % Normal 0.9-7.0 [facility] Comment on above: Performed By: #### C BC ####[facility] Mxmazotwrq7[address] [place], [place] [address]Dr. Tadeo Smyth Erythrocyte distribution width (RBC) [Ratio] 13.5 % Normal 11.0-15.0 [facility] Comment on above: Performed By: #### C BC ####[facility] Drwmgvkgch[address] [place], [place] [address]Dr. Tadeo Smyth Hematocrit (Bld) [Volume fraction] 37.0 % Normal 36.0-48.0 [facility] Comment on above: Performed By: #### C BC ####[facility] Vmopzoulor[address] [place], [place] [address]Dr. Tadeo Smyth Hemoglobin (Bld) [Mass/Vol] 12.0 g/dL Normal 12.0-16.0 [facility] Comment on above: Performed By: #### C BC ####[facility] Wfontumcvu7[address] [place], [place] [address]Dr. Tadeo Smyth IG # 0.02 10e3/ul Normal 0.00-0.03 [facility] Comment on above: Performed By: #### C BC ####[facility] Tvlrganhjg[address] [place], [place] [address]Dr. Tadeo Smyth IG % 0.3 % Normal 0.0-0.5 [facility] Comment on above: Performed By: #### C BC ####[facility] Ugtkjkxzhj[address] [place], [place] [address]Dr. Tadeo Smyth LYMPH # 2.0 103/ul Normal 1.2-3.8 [facility] Comment on above: Performed By: #### C BC ####[facility] Lzcchjnpcr0807 [place] [address]Dr. Tadeo Smyth Lymphocytes/100 WBC (Bld) 27.9 % Normal 20.5-60.0 [facility] Comment on above: Performed By: #### C BC ####[facility] Mworgfmbgy4027 [place] [address]Dr. Tadeo Smyth MANUAL DIFF REQ NO Normal [facility] Comment on above: Performed By: #### C BC ####[facility] Pcviiibxno6302 [place] [address]Dr. Tadeo Smyth MCH (RBC) [Entitic mass] 28.9 pg Normal 26.7-34.0 [facility] Comment on above: Performed By: #### C BC ####[facility] Onlfsrbsuo[address] [place], [place] [address]Dr. Tadeo Smyth MCHC (RBC) [Mass/Vol] 32.4 g/dL Normal 29.9-35.2 [facility] Comment on above: Performed By: #### C BC ####[facility] Jiqhtizgge[address] [place], [place] [address]Dr. Tadeo Smyth MCV (RBC) [Entitic vol] 89.2 fL Normal 81.0-99.0 [facility] Comment on above: Performed By: #### C BC ####[facility] [address]gjxadhqb[address] [place], [place] [address]Dr. Tadeo Smyth MONO # 0.5 103/ul Normal 0.3-0.8 [facility] Comment on above: Performed By: #### C BC ####[facility] Cekyrqspyy[address] [place], [place] [address]Dr. Tadeo Smyth Monocytes/100 WBC (Bld) 6.7 % Normal 1.7-12.0 [facility] Comment on above: Performed By: #### C BC ####[facility] Lkekqjwfla[address] [place], [place] [address]Dr. Tadeo Smyth NEUT # 4.5 103/ul Normal 1.4-6.5 [facility] Comment on above: Performed By: #### C BC ####[facility] Tmbksywric[address] [place], [place] [address]Dr. Tadeo Smyth Neutrophils/100 WBC (Bld) 63.2 % Normal 43.0-75.0 [facility] Comment on above: Performed By: #### C BC ####[facility] Xqrptzmnpg7005 [place] [address]Dr. Tadeo Smyth Platelet mean volume (Bld) [Entitic vol] 9.0 fL Critically low 9.5-13.5 [facility] Comment on above: Performed By: #### C BC ####[facility] Mjbjiqymst5618 [place] [address]Dr. Tadeo Smyth PLT 382 103/ul Normal 150-450 [facility] Comment on above: Performed By: #### C BC ####[facility] Xizjebbvoo[address] [place], [place] [address]Dr. Tadeo Smyth RBC 4.15 106/ul Critically low 4.20-5.40 [facility] Comment on above: Performed By: #### C BC ####[facility] Ortgnqgyzp[address] [place], [place] [address]Dr. Tadeo Smyth WBC 7.1 103/ul Normal 4.0-11.0 [facility] Comment on above: Performed By: #### C BC ####[facility] Dekxweeoew[address] [place], [place] [address]Dr. Tadeo Smyth CT ABD/PELV W CONon 08-08-[address] ABD/PELV W CON Normal [facility] ER URINE PROFILEon 2 Bilirubin Ql (U) Negative Normal NEGATIVE [facility] Comment on above: Performed By: #### SANDRO MERCHANTRO ####[facility] Ndpxekgddx6750 [place] [address]Dr. Tadeo Smyth Clarity (U) CLEAR Normal CLEAR [facility] Comment on above: Performed By: #### SANDRO MERCHANTRO ####[facility] Xzybtkczlp7175 [place] [address]Dr. Tadeo Smyth Color (U) YELLOW Normal YELLOW [facility] Comment on above: Performed By: #### SANDRO MERCHANTRO ####[facility] Oszcmimbwp[address] [place], [place] [address]Dr. Tadeo PANAHD A micrscopic examina tion will be performed if indicated. Normal [facility] Comment on above: Performed By: #### KAROL MERCHANT ####[facility] Pqlwdvdpmc9137 [place] [address]Dr. Tadeo Smyth Glucose Ql (U) Negative Normal NEGATIVE [facility] Comment on above: Performed By: #### KAROL MERCHANT ####[facility] Sghqzwfioy[address] [place], [place] [address]Dr. Tadeo Smyth Hemoglobin Ql (U) TRACE-LYSED Abnormal NEGATIVE [facility] Comment on above: Performed By: #### KAROL MERCHANT ####[facility] Nsthzhuweh[address] [place], [place] [address]Dr. Tadeo Smyth Ketones Ql (U) TRACE Abnormal NEGATIVE [facility] Comment on above: Performed By: #### KAROL MRECHANT ####[facility] Ibnbvkmdpl[address] [place], [place] [address]Dr. Tadeo Smyth LEUKOCYTES Negative Normal NEGATIVE [facility] Comment on above: Performed By: #### KAROL MERCHANT ####[facility] Sqcvunqmpf2[address] [place], [place] [address]Dr. Tadeo Smyth Nitrite Ql (U) Negative Normal NEGATIVE [facility] Comment on above: Performed By: #### KAROL MERCHANT ####[facility] Wqnwqshxlm[address] [place], [place] [address]Dr. Tadeo Smyth pH (U) 6.0 [pH] Normal 5-9 [facility] Comment on above: Performed By: #### KAROL MERCHANT ####[facility] Tomkfsoihw[address] [place], [place] [address]Dr. Tadeo Smyth SPEC GRAVITY >=1.030 Abnormal 1.005-<=1.0 25 [facility] Comment on above: Performed By: #### KAROL MERCHANT ####[facility] Vexqbgsjtf[address] [place], [place] [address]Dr. Tadeo Smyth UA PROTEIN TRACE Normal NEGATIVE/ TRACE [facility] Comment on above: Performed By: #### RANID MERCHANTICRO ####[facility] Mirjdhbsne7183 [place] [address]Dr. Tadeo Smyth UR MICRO IND INDICATED Normal [facility] Comment on above: Performed By: #### Matthew FRANCISCO UMICRO ####[facility] Rdnwjydcla5412 [place] [address]Dr. Tadeo Smyth Urobilinogen Qn (U) 0.2 {Benito'U}/dL Normal 0.2 - 1. 0 [facility] Comment on above: Performed By: #### SANDRO MERCHANTRO ####[facility] B[address]ckwfaqdh[address] [place], [place] [address]Dr. Tadeo Smyth LACTATE/LACTIC ACIDon 2021 Lactate [Moles/Vol] 1.3 mmol/L Normal 0.4-1.9 [facility] Comment on above: Performed By: #### L ACT ####[facility] Xettswgpvh[address] [place], [place] [address]Dr. Tadeo Smyth LIPASEon 08-08-2022 Lipase [Catalytic activity/Vol] 120.0 U/L Normal 73.0-393.0 [facility] Comment on above: Performed By: #### C MP, VIJI, LIPA, CMADM ####[facility] [address]sfdgarfwo[address] [place], [place] [address]Dr. Tadeo Smyth PROF 14(COMP METB)on 022 Albumin [Mass/Vol] 3.8 g/dL Normal 3.4-5.0 [facility] Comment on above: Performed By: #### C MP, VIJI, LIPA, CMADM ####[facility] Oupytgurjc[address] [place], [place] [address]Dr. Tadeo Smyth Albumin/Globulin [Mass ratio] 1.1 {ratio} Normal [facility] Comment on above: Performed By: #### C MP, VIJI, LIPA, CMADM ####[facility] Ardmholbww2726 [place] [address]Dr. Tadeo Smyth ALP [Catalytic activity/Vol] 145 U/L Critically high 46-116 [facility] Comment on above: Performed By: #### C MP, VIJI, LIPA, CMADM ####[facility] Uqkzsdofdb9426 [place] [address]Dr. Tadeo Smyth ALT [Catalytic activity/Vol] 30 U/L Normal 14-59 [facility] Comment on above: Performed By: #### C MP, VIJI, LIPA, CMADM ####[facility] Brpegjmgdx8389 [place] [address]Dr. Tadeo Smyth Anion gap [Moles/Vol] 11.5 mmol/L Normal Th e [facility] Comment on above: Performed By: #### C MP, VIJI, LIPA, CMADM ####[facility] Xexfzxeism5076 [place] [address]Dr. Tadeo Smyth AST [Catalytic activity/Vol] 17 U/L Normal 15-37 [facility] Comment on above: Performed By: #### C MP, VIJI, LIPA, CMADM ####[facility] Ylylggucyp0681 [place] [address]Dr. Tadeo Smyth Bilirubin [Mass/Vol] 0.1 mg/dL Critically low 0.2-1.0 [facility] Comment on above: Performed By: #### C MP, VIJI, LIPA, CMADM ####[facility] Jwqpmhdihz7743 [place] [address]Dr. Tadeo Smyth Calcium [Mass/Vol] 8.9 mg/dL Normal 8.5-10.1 [facility] Comment on above: Performed By: #### C MP, VIJI, LIPA, CMADM ####[facility] Qbfdxjgbif8372 [place] [address]Dr. Tadeo Smyth Chloride [Moles/Vol] 104 mmol/L Normal 98-107 [facility] Comment on above: Performed By: #### C MP, VIJI, LIPA, CMADM ####[facility] Ifikwdryjf3421 [place] [address]Dr. Tadeo Smyth CO2 [Moles/Vol] 27.2 mmol/L Normal 21.0-32.0 [facility] Comment on above: Performed By: #### C MP, VIJI, LIPA, CMADM ####[facility] Ugqoxkshnx6899 [place] [address]Dr. Tadeo Smyth Creatinine [Mass/Vol] 0.90 mg/dL Normal 0.55-1.02 [facility] Comment on above: Performed By: #### C MP, VIJI, LIPA, CMADM ####[facility] Takzbilwfb1227 [place] [address]Dr. Tadeo Smyth EGFR-AF KYRGYZ >60 Normal >=60 [facility] Comment on above: Performed By: #### C MP, VIJI, LIPA, CMADM ####[facility] Mzdsbchppm4415 [place] [address]Dr. Tadeo Smyth EGFR-NON AF KYRGYZ >60 Normal >=60 [facility] Comment on above: Performed By: #### C MP, VIJI, LIPA, CMADM ####[facility] [address]fiddpxetg[address] [place], [place] [address]Dr. Tadeo Smyth Globulin (S) [Mass/Vol] 3.5 g/dL Normal [facility] Comment on above: Performed By: #### C MP, VIJI, LIPA, CMADM ####[facility] Nbpggirece[address] [place], [place] [address]Dr. Tadeo Smyth Glucose [Mass/Vol] 98 mg/dL Normal 74-106 [facility] Comment on above: Performed By: #### C MP, VIJI, LIPA, CMADM ####[facility] Qvohjqhgvq5502 [place] [address]Dr. Tadeo Smyth Potassium [Moles/Vol] 3.7 mmol/L Normal 3.5-5.1 [facility] Comment on above: Performed By: #### C MP, VIJI, LIPA, CMADM ####[facility] Wcjpyits[address] [place], [place] [address]Dr. Tadeo Smyth Protein [Mass/Vol] 7.3 g/dL Normal 6.4-8.2 [facility] Comment on above: Performed By: #### C MP, VIJI, LIPA, CMADM ####[facility] Vvbacfigja0393 [place] [address]Dr. Tadeo Smyth Sodium [Moles/Vol] 139 mmol/L Normal 136-145 [facility] Comment on above: Performed By: #### C MP, VIJI, LIPA, CMADM ####[facility] Fnovjesysm2618 [place] [address]Dr. Tadeo Smyth Urea nitrogen [Mass/Vol] 25.0 mg/dL Critically high 7.0-18.0 [facility] Comment on above: Performed By: #### C MP, VIJI, LIPA, CMADM ####[facility] Apvnqicqhn0133 [place] [address]Dr. Tadeo Smyth Urea nitrogen/Creatinine [Mass ratio] 27.8 mg/mg Normal [facility] Comment on above: Performed By: #### C MP, VIJI, LIPA, CMADM ####[facility] Ivxrhqmsjf6237 [place] [address]Dr. Tadeo Smyth URINE MICROSCOPIC ONLYon BACTERIA NONE SEEN Normal NONE SEEN [facility] Comment on above: Performed By: #### Matthew FRANCISCO UMICRO ####[facility] Wtzz[address] [place], [place] [address]Dr. Tadeo Smyth Bacteria identified Cx Nom (U) NOT INDICATED Normal [facility] Comment on above: Performed By: #### Matthew FRANCISCO UMICRO ####[facility] Zbfngngbnw3802 [place] [address]Dr. Tadeo Smyth CAST NONE SEEN Normal NONE SEEN [facility] Comment on above: Performed By: #### Matthew FRANCISCO UMICRO ####[facility] Docjnxomut[address] [place], [place] [address]Dr. Tadeo Smyth Crystals LM Nom (Urine sed) NONE SEEN Normal NONE SEEN [facility] Comment on above: Performed By: #### Matthew FRANCISCO UMICRO ####[facility] Esdpqnzweh1635 [place] [address]Dr. Tadeo Smyth Epithelial cells LM Ql (Urine sed) FEW Abnormal NONE SEEN /RARE [facility] Comment on above: Performed By: #### KAROL MERCHANT ####[facility] Civfxhstej46[address] [place], [place] [address]Pm. Tadeo Smyth MUCOUS NONE SEEN Normal NONE SEEN [facility] Comment on above: Performed By: #### KAROL MERCHANT ####[facility] Hjyabrgsfc6836 [place], [place] [address]Zp. Tadeo Smyth RBC 2-5 Abnormal 0-2 [facility] Comment on above: Performed By: #### KAROL MERCHANT ####[facility] Ghdrtyruid0281 [place], [place] [address]Tt. Tadeo Smyth WBC NONE SEEN Normal NONE SEEN The [facility] Comment on above: Performed By: #### KAROL MERCHANT ####[facility] Olmlwdenov0600 [place], [place] [address]Bf. Tadeo Smyth Gastroenterology Office/Clin ic Noteon 07-24-2022 [...] Nunez to record this visit. 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 JOSE [...] 10 mg= (more content not included)... Normal [facility] Comment on above: Result Comment: Elec tronically Signed By: Agata Nunes\.br\Date and Time Signed: 07/22/22 16:25 EST\.br\Electronically Co-Signed By: Anai REAGAN MD\.br\Date and Time Co-Signed: 11/19/22 15:06 EST AMYLASEon 07-21-2022 Amylase [Catalytic activity/Vol] 49 U/L Normal 25-115 [facility] Comment on above: Performed By: #### L VIJI HALL, CMP ####[facility] Pherryfcwa5464 [place] [address]Dr. Tadeo Smyth CBC AUTO DIFFon 07-21-2022 BASO # 0.0 103/ul Normal 0.0-0.1 [facility] Comment on above: Performed By: #### C BC ####[facility] Kirxontnhb1753 [place] [address]Dr. Tadeo Smyth Basophils/100 WBC (Bld) 0.6 % Normal 0.2-2.0 [facility] Comment on above: Performed By: #### C BC ####[facility] Ngmlkncksl3081 [place] [address]Dr. Tadeo Smyth EO # 0.2 103/ul Normal 0.0-0.7 [facility] Comment on above: Performed By: #### C BC ####[facility] Wgiaavkker[address] [place], [place] [address]Dr. Tadeo Smyth Eosinophils/100 WBC (Bld) 3.1 % Normal 0.9-7.0 [facility] Comment on above: Performed By: #### C BC ####[facility] Hqunhbgzlg8712 [place] [address]Dr. Tadeo Smyth Erythrocyte distribution width (RBC) [Ratio] 13.2 % Normal 11.0-15.0 [facility] Comment on above: Performed By: #### C BC ####[facility] Rxvtzfbbyi3324 [place] [address]Dr. Tadeo Smyth Hematocrit (Bld) [Volume fraction] 35.7 % Critically low 36.0-48.0 [facility] Comment on above: Performed By: #### C BC ####[facility] Ranbwpwwlv5630 [place] [address]Dr. Tadeo Smyth Hemoglobin (Bld) [Mass/Vol] 11.6 g/dL Critically low 12.0-16.0 [facility] Comment on above: Performed By: #### C BC ####[facility] Iegruzcqii5842 [place] [phone]. Tadeo Smyth IG # 0.01 10e3/ul Normal 0.00-0.03 [facility] Comment on above: Performed By: #### C BC ####[facility] Tcwrrvdqbq8072 [place] [phone]. Tadeo Smyth IG % 0.2 % Normal 0.0-0.5 [facility] Comment on above: Performed By: #### C BC ####[facility] Mvugeqhwge1025 [place] [address]Dr. Tadeo Smyth LYMPH # 1.9 103/ul Normal 1.2-3.8 [facility] Comment on above: Performed By: #### C BC ####[facility] Rvkmoqasaj7427 [place] [address]Dr. Tadeo Smyth Lymphocytes/100 WBC (Bld) 34.8 % Normal 20.5-60.0 [facility] Comment on above: Performed By: #### C BC ####[facility] Fsbkkrbxeq7590 [place] [address]Dr. Tadeo Smyth MANUAL DIFF REQ NO Normal [facility] Comment on above: Performed By: #### C BC ####[facility] Guocxsihez0865 [place] [address]Dr. Tadeo Smyth MCH (RBC) [Entitic mass] 29.1 pg Normal 26.7-34.0 [facility] Comment on above: Performed By: #### C BC ####[facility] Yhbjbjjwez3623 [place] [address]Dr. Tadeo Smyth MCHC (RBC) [Mass/Vol] 32.5 g/dL Normal 29.9-35.2 [facility] Comment on above: Performed By: #### C BC ####[facility] Crempuzlwr1317 [place] [address]Dr. Tadeo Smyth MCV (RBC) [Entitic vol] 89.7 fL Normal 81.0-99.0 [facility] Comment on above: Performed By: #### C BC ####[facility] Zrfqwkoywb6000 [place] [phone]. Tadeo Smyth MONO # 0.3 103/ul Normal 0.3-0.8 [facility] Comment on above: Performed By: #### C BC ####[facility] Byvqmycubr0807 [place] [phone]. Tadeo Smyth Monocytes/100 WBC (Bld) 6.1 % Normal 1.7-12.0 [facility] Comment on above: Performed By: #### C BC ####[facility] Upsivudmdu7779 [place] [phone]. Tadeo Smyth NEUT # 3.0 103/ul Normal 1.4-6.5 [facility] Comment on above: Performed By: #### C BC ####[facility] Smhapowbsd9011 [place] [address]Dr. Tadeo Smyth Neutrophils/100 WBC (Bld) 55.2 % Normal 43.0-75.0 [facility] Comment on above: Performed By: #### C BC ####[facility] Qorsqqihac4111 [place] [phone]. Tadeo Smyth Platelet mean volume (Bld) [Entitic vol] 9.0 fL Critically low 9.5-13.5 [facility] Comment on above: Performed By: #### C BC ####[facility] Wprtopwkrz3563 [place] [address]Dr. Tadeo Smyth PLT 358 103/ul Normal 150-450 [facility] Comment on above: Performed By: #### C BC ####[facility] Tkwnsnjpzw6561 [place] [phone]. Tadeo Smyth RBC 3.98 106/ul Critically low 4.20-5.40 [facility] Comment on above: Performed By: #### C BC ####[facility] Qybqarrcis6613 [place] [phone]. Tadeo Smyth WBC 5.4 103/ul Normal 4.0-11.0 [facility] Comment on above: Performed By: #### C BC ####[facility] Rfetmuykvy[address] [place], [place] [address]Dr. Tadeo Smyth LIPASEon 07-21-2022 Lipase [Catalytic activity/Vol] 54.0 U/L Critically low 73.0-393.0 [facility] Comment on above: Performed By: #### L VIJI HALL, CMP ####[facility] Rqylbwnhkf4580 [place] [address]Dr. Tadeo Smyth PROF 14(COMP METB)on 022 Albumin [Mass/Vol] 3.5 g/dL Normal 3.4-5.0 [facility] Comment on above: Performed By: #### L VIJI HALL, CMP ####[facility] Wvlllxoict7839 [place] [address]Dr. Tadeo Smyth Albumin/Globulin [Mass ratio] 0.9 {ratio} Normal [facility] Comment on above: Performed By: #### L VIJI HALL, CMP ####[facility] Ukeinocels0631 [place] [address]Dr. Tadeo Smyth ALP [Catalytic activity/Vol] 127 U/L Critically high 46-116 [facility] Comment on above: Performed By: #### L VIJI HALL, CMP ####[facility] Damvhegees9936 [place] [address]Dr. Tadeo Smyth ALT [Catalytic activity/Vol] 16 U/L Normal 14-59 [facility] Comment on above: Performed By: #### L VIJI HALL, CMP ####[facility] Flsjoqzmrd3892 [place] [address]Dr. Tadeo Smyth Anion gap [Moles/Vol] 10.6 mmol/L Normal [facility] Comment on above: Performed By: #### L VIJI HALL, CMP ####[facility] Qvheodisbd3286 [place] [address]Dr. Tadeo Smyth AST [Catalytic activity/Vol] 16 U/L Normal 15-37 [facility] Comment on above: Performed By: #### L VIJI HALL, CMP ####[facility] Mfqndtkrot7931 [place] [address]Dr. Tadeo Smyth Bilirubin [Mass/Vol] 0.3 mg/dL Normal 0.2-1.0 [facility] Comment on above: Performed By: #### L VIJI HALL, CMP ####[facility] Ibxfkswtmn[address] [place], [place] [address]Dr. Tadeo Smyth Calcium [Mass/Vol] 9.1 mg/dL Normal 8.5-10.1 [facility] Comment on above: Performed By: #### L VIJI HALL, CMP ####[facility] Ydtlejeyku[address] [place], [place] [address]Dr. Tadeo Smyth Chloride [Moles/Vol] 104 mmol/L Normal 98-107 [facility] Comment on above: Performed By: #### L VIJI HALL, CMP ####[facility] Hgrzkahwhk[address] [place], [place] [address]Dr. Tadeo Smyth CO2 [Moles/Vol] 28.0 mmol/L Normal 21.0-32.0 [facility] Comment on above: Performed By: #### L VIJI HALL, CMP ####[facility] Okxtlwavkn[address] [place], [place] [address]Dr. Tadeo Smyth Creatinine [Mass/Vol] 0.96 mg/dL Normal 0.55-1.02 [facility] Comment on above: Performed By: #### L VIJI HALL, CMP ####[facility] Nkyysxsjgz[address] [place], [place] [address]Dr. Tadeo Smyth EGFR-AF KYRGYZ >60 Normal >=60 [facility] Comment on above: Performed By: #### L VIJI HALL, CMP ####[facility] Okqwlujljb75[address] [place], [place] [address]Dr. Tadeo Smyth EGFR-NON AF KYRGYZ >60 Normal >=60 [facility] Comment on above: Performed By: #### L VIJI HALL, CMP ####[facility] Bnqiiccbdq20[address] [place], [place] [address]Dr. Tadeo Smyth Globulin (S) [Mass/Vol] 3.8 g/dL Normal [facility] Comment on above: Performed By: #### L VIJI HALL, CMP ####[facility] Rsgvtnwvmq[address] [place], [place] [address]Dr. Tadeo Smyth Glucose [Mass/Vol] 93 mg/dL Normal 74-106 [facility] Comment on above: Performed By: #### L VIJI HALL, CMP ####[facility] Uqzianxyvr9875 [place] [address]Dr. Tadeo Smyth Potassium [Moles/Vol] 3.6 mmol/L Normal 3.5-5.1 [facility] Comment on above: Performed By: #### L VIJI HALL, CMP ####[facility] Hsaikhbenw7430 [place] [address]Dr. Tadeo Smyth Protein [Mass/Vol] 7.3 g/dL Normal 6.4-8.2 [facility] Comment on above: Performed By: #### L VIJI HALL, CMP ####[facility] Wbolkydafk[address] [place], [place] [address]Dr. Tadeo Smyth Sodium [Moles/Vol] 139 mmol/L Normal 136-145 [facility] Comment on above: Performed By: #### L VIJI HALL, CMP ####[facility] Lbjhemmwlz[address] [place], [place] [address]Dr. Tadeo Smyth Urea nitrogen [Mass/Vol] 16.0 mg/dL Normal 7.0-18.0 [facility] Comment on above: Performed By: #### L VIJI HALL, CMP ####[facility] Qrnovhwvgy[address] [place], [place] [address]Dr. Taedo Smyth Urea nitrogen/Creatinine [Mass ratio] 16.7 mg/mg Normal [facility] Comment on above: Performed By: #### L VIJI HALL, CMP ####[facility] Emnoprtezp[address] [place], [place] [address]Dr. Tadeo Smyth XR ABD FLAT UP_PA Kasey 07-21 XR ABD FLAT UP_PA CH Normal [facility] CULTURE URINEon 07-10-2022 CULTURE URINE Normal [facility] Comment on above: Performed By: #### U RCX ####[facility] Neehcjbrxw[address] [place], [place] [address]Dr. Tadeo Smyth INSULINon 07-09-2022 Insulin 15.9 uIU/mL Normal 2.6-24.9 [facility] Comment on above: Performed By: #### I NSULIN ####[facility] Bxdyndmkeo[address] [place], [place] [address]Dr. Tadeo Smyth CBC AUTO DIFFon 07-08-2022 BASO # 0.0 103/ul Normal 0.0-0.1 [facility] Comment on above: Performed By: #### C BC ####[facility] Bewmbtsdrk[address] [place], [place] [address]Dr. Tadeo Smyth Basophils/100 WBC (Bld) 0.6 % Normal 0.2-2.0 [facility] Comment on above: Performed By: #### C BC ####[facility] Yrwqyeojgc[address] [place], [place] [address]DrNeo Smyth EO # 0.2 103/ul Normal 0.0-0.7 [facility] Comment on above: Performed By: #### C BC ####[facility] R[address]umprwrpm[address] [place], [place] [address]DrNeo Smyth Eosinophils/100 WBC (Bld) 3.4 % Normal 0.9-7.0 [facility] Comment on above: Performed By: #### C BC ####[facility] Axbcvawmjy[address] [place], [place] [address]DrNeo Smyth Erythrocyte distribution width (RBC) [Ratio] 13.1 % Normal 11.0-15.0 [facility] Comment on above: Performed By: #### C BC ####[facility] Uanjfcvvnd[address] [place], [place] [address]Dr. Tadeo Smyth Hematocrit (Bld) [Volume fraction] 42.4 % Normal 36.0-48.0 [facility] Comment on above: Performed By: #### C BC ####[facility] Cvzyfdapbh[address] [place], [place] [address]DrNeo Smyth Hemoglobin (Bld) [Mass/Vol] 13.7 g/dL Normal 12.0-16.0 [facility] Comment on above: Performed By: #### C BC ####[facility] Pypcmdhnrp[address] [place], [place] [address]Dr. Tadeo Smyth IG # 0.01 10e3/ul Normal 0.00-0.03 [facility] Comment on above: Performed By: #### C BC ####[facility] Ykbbdfkuel9038 [place] [address]Dr. Tadeo Smyth IG % 0.2 % Normal 0.0-0.5 [facility] Comment on above: Performed By: #### C BC ####[facility] Wnjpivyvdw9860 [place] [address]DrNeo Smyth LYMPH # 2.1 103/ul Normal 1.2-3.8 [facility] Comment on above: Performed By: #### C BC ####[facility] Hoahcsmezv4606 [place] [address]DrNeo Smyth Lymphocytes/100 WBC (Bld) 41.2 % Normal 20.5-60.0 [facility] Comment on above: Performed By: #### C BC ####[facility] [address]ts[address]jazgz[address] [place], [place] [address]DrNeo Smyth MANUAL DIFF REQ NO Normal [facility] Comment on above: Performed By: #### C BC ####[facility] Efpuiigcmo[address] [place], [place] [address]DrNeo Smyth MCH (RBC) [Entitic mass] 28.8 pg Normal 26.7-34.0 [facility] Comment on above: Performed By: #### C BC ####[facility] Coappdeyxo6966 [place] [address]DrNeo Smyth MCHC (RBC) [Mass/Vol] 32.3 g/dL Normal 29.9-35.2 [facility] Comment on above: Performed By: #### C BC ####[facility] Wwkbeuqbyy2865 [place] [address]DrNeo Smyth MCV (RBC) [Entitic vol] 89.3 fL Normal 81.0-99.0 [facility] Comment on above: Performed By: #### C BC ####[facility] [address]ygutdpefq[address] [place], [place] [address]DrNeo Smyth MONO # 0.4 103/ul Normal 0.3-0.8 [facility] Comment on above: Performed By: #### C BC ####[facility] Kypvvikshy8023 [place] [phone]. Tadeo Smyth Monocytes/100 WBC (Bld) 8.1 % Normal 1.7-12.0 [facility] Comment on above: Performed By: #### C BC ####[facility] Vygumvnmdm6775 [place] [phone]. Tadeo Smyth NEUT # 2.4 103/ul Normal 1.4-6.5 [facility] Comment on above: Performed By: #### C BC ####[facility] Uqtdkvghlm1067 [place] [address]Dr. Tadeo Smyth Neutrophils/100 WBC (Bld) 46.5 % Normal 43.0-75.0 [facility] Comment on above: Performed By: #### C BC ####[facility] Mpgxvlawwb5318 [place] [address]Dr. Tadeo Smyth Platelet mean volume (Bld) [Entitic vol] 9.3 fL Critically low 9.5-13.5 [facility] Comment on above: Performed By: #### C BC ####[facility] Bviugmgfhe6919 [place] [address]Dr. Tadeo Smyth PLT 443 103/ul Normal 150-450 [facility] Comment on above: Performed By: #### C BC ####[facility] Wlofpgkrxd6611 [place] [phone]. Tadeo Smyth RBC 4.75 106/ul Normal 4.20-5.40 [facility] Comment on above: Performed By: #### C BC ####[facility] Vajbfwqgoc3908 [place] [phone]. Tadeo Smyth WBC 5.1 103/ul Normal 4.0-11.0 [facility] Comment on above: Performed By: #### C BC ####[facility] Tdyevyzezm2102 [place] [phone]. Tadeo Smyth FREE THYROXINE INDEX T7on FTI 2.91 Normal 1.30-4.50 [facility] Comment on above: Performed By: #### T 7, LIPID, TSH, CMP ####[facility] Upusszbzyb0423 [place] [address]Dr. Tadeo Smyth T3U 31.0 % Normal 30.0-39.0 [facility] Comment on above: Performed By: #### T 7, LIPID, TSH, CMP ####[facility] Mhsafodgyl2953 [place] [address]Dr. Tadeo Smyth T4 [Mass/Vol] 9.40 ug/dL Normal 4.80-13.90 [facility] Comment on above: Performed By: #### T 7, LIPID, TSH, CMP ####[facility] [address]om[address]amkv[address] [place], [place] [address]Dr. Tadeo Smyth GLYCOHEMOGLOBIN A1Con 2021 ADA RECOMMENDATION SEE BELOW Normal [facility] Comment on above: Result Comment: ADA RECOMMENDED LIMIT 4.0 - 6.0 ADA THERAPEUTIC TARGET < 7.0 ACTION SUGGESTED > 7.0 Performed By: #### A 1C ####[facility] [address]uziparig[address] [place], [place] [address]Dr. Margotnicole Smyth Glucose [Mass/Vol] 120 mg/dL Normal [facility] Comment on above: Performed By: #### A 1C ####[facility] Kailbduwkq8755 [place] [address]Dr. Tadeo Smyth HbA1c (Bld) [Mass fraction] 5.8 % Normal 4.5-6.2 [facility] Comment on above: Performed By: #### A 1C ####[facility] Zrkpkxdehp6706 [place] [address]Dr. Tadeo Smyth IRONon 07-08-2022 Iron [Mass/Vol] 59.0 ug/dL Normal 50.0-170.0 [facility] Comment on above: Performed By: #### I KEEGAN ####[facility] R[address]jkpgkhyx[address] [place], [place] [address]Dr. Tadeo Smyth LIPID PROFILEon 07-08-2022 CHOL-HDL RATIO NORM SEE BELOW Normal [facility] Comment on above: Result Comment: 3.3 - 4.4 LOW RISK 4.4 - 7.1 AVERAGE RISK 7.1 - 11.0 MODERATE RISK >11.0 HIGH RISK Performed By: #### T 7, LIPID, TSH, CMP ####[facility] Onoldowtyb9531 [place] [phone]. Tadeo Smyth Cholesterol [Mass/Vol] 227 mg/dL Critically high <=200 [facility] Comment on above: Performed By: #### T 7, LIPID, TSH, CMP ####[facility] Ejbaodjerq3999 [place] [phone]. Margotlan Smyth Cholesterol in HDL [Mass/Vol] 67 mg/dL Critically high 40-60 [facility] Comment on above: Performed By: #### T 7, LIPID, TSH, CMP ####[facility] Ykikdpsmhz3363 [place] [phone]. Tadeo Smyth Cholesterol in LDL [Mass/Vol] 139.0 mg/dL Normal [facility] Comment on above: Performed By: #### T 7, LIPID, TSH, CMP ####[facility] Lfkenpwwcp0277 [place] [phone]. Tadeo Smyth Cholesterol.total/Cho lesterol in HDL [Mass ratio] 3.4 {ratio} Normal [facility] Comment on above: Performed By: #### T 7, LIPID, TSH, CMP ####[facility] Lbphwhuopa5307 [place] [phone]. Margotlan Smyth HDL NORMAL > or = 60 mg/dl - LO W CARDIOVASCULAR RISK <40 mg/dl - HIGH CARDIOVASCULAR RISK Normal [facility] Comment on above: Performed By: #### T 7, LIPID, TSH, CMP ####[facility] Vxslleqllu5683 [place] [phone]. Margotlan Smyth LDL CALC NORMAL SEE BELOW Normal [facility] Comment on above: Result Comment: <100 mg/dl OPTIMAL 100 - 129 mg/dl NEAR OR ABOVE OPTIMAL 130 - 159 mg/dl BORDERLINE HIGH 160 - 189 mg/dl HIGH >190 mg/dl VERY HIGH Performed By: #### T 7, LIPID, TSH, CMP ####[facility] Xxiciltcqn2038 [place] [address]Dr. Tadeo Smyth Triglyceride [Mass/Vol] 105 mg/dL Normal <=150 [facility] Comment on above: Performed By: #### T 7, LIPID, TSH, CMP ####[facility] Qkphriwtmm1750 [place] [address]Dr. Tadeo Smyth VLDL CALC 21.0 mg/dL Normal [facility] Comment on above: Performed By: #### T 7, LIPID, TSH, CMP ####[facility] Fenzmepgsd0471 [place] [address]Dr. Tadeo Smyth OCC BLD IMMUNO SCREENon OCCULT BLOOD Negative Normal NEGATIVE [facility] Comment on above: Performed By: #### O BSCRN ####[facility] Htdlkunsra4010 [place] [address]Dr. Tadeo Smyth PROF 14(COMP METB)on 022 Albumin [Mass/Vol] 3.7 g/dL Normal 3.4-5.0 [facility] Comment on above: Performed By: #### T 7, LIPID, TSH, CMP ####[facility] Poeoykmybt1097 [place] [address]Dr. Tadeo Smyth Albumin/Globulin [Mass ratio] 0.8 {ratio} Normal [facility] Comment on above: Performed By: #### T 7, LIPID, TSH, CMP ####[facility] Maphfxelzq4135 [place] [place] [address]Dr. Tadeo Smyth ALP [Catalytic activity/Vol] 141 U/L Critically high 46-116 [facility] Comment on above: Performed By: #### T 7, LIPID, TSH, CMP ####[facility] Xoeridhjta6748 [place] [phone]. Tadeo Smyth ALT [Catalytic activity/Vol] 23 U/L Normal 14-59 [facility] Comment on above: Performed By: #### T 7, LIPID, TSH, CMP ####[facility] Rdyqmyzpgy8[address] [place] [address]Dr. Tadeo Smyth Anion gap [Moles/Vol] 9.8 mmol/L Normal [facility] Comment on above: Performed By: #### T 7, LIPID, TSH, CMP ####[facility] Aonraxmihy7285 [place] [address]Dr. Tadeo Smyth AST [Catalytic activity/Vol] 13 U/L Critically low 15-37 [facility] Comment on above: Performed By: #### T 7, LIPID, TSH, CMP ####[facility] Sfvazswedt2460 [place] [address]Dr. Tadeo Smyth Bilirubin [Mass/Vol] 0.4 mg/dL Normal 0.2-1.0 [facility] Comment on above: Performed By: #### T 7, LIPID, TSH, CMP ####[facility] Ibxpjpbc[address] [place], [place] [address]Dr. Tadeo Smyth Calcium [Mass/Vol] 10.2 mg/dL Critically high 8.5-10.1 [facility] Comment on above: Performed By: #### T 7, LIPID, TSH, CMP ####[facility] Ubyfxdjxtg[address] [place], [place] [address]Dr. Tadeo Smyth Chloride [Moles/Vol] 101 mmol/L Normal 98-107 [facility] Comment on above: Performed By: #### T 7, LIPID, TSH, CMP ####[facility] Uyjgccyqjf[address] [place], [place] [address]Dr. Tadeo Smyth CO2 [Moles/Vol] 32.8 mmol/L Critically high 21.0-32.0 [facility] Comment on above: Performed By: #### T 7, LIPID, TSH, CMP ####[facility] Lvhnnkxpth[address] [place], [place] [address]Dr. Tadeo Smyth Creatinine [Mass/Vol] 0.92 mg/dL Normal 0.55-1.02 [facility] Comment on above: Performed By: #### T 7, LIPID, TSH, CMP ####[facility] Xgthofniow2646 [place] [address]Dr. Tadeo Smyth EGFR-AF KYRGYZ >60 Normal >=60 [facility] Comment on above: Performed By: #### T 7, LIPID, TSH, CMP ####[facility] Plzjfipyqr4660 [place] [phone]. Tadeo Smyth EGFR-NON AF KYRGYZ >60 Normal >=60 [facility] Comment on above: Performed By: #### T 7, LIPID, TSH, CMP ####[facility] Fwzozunjya0445 [place] [address]Dr. Tadeo Smyth Globulin (S) [Mass/Vol] 4.8 g/dL Normal [facility] Comment on above: Performed By: #### T 7, LIPID, TSH, CMP ####[facility] Mwhylparsm8798 [place] [address]Dr. Tadeo Smyth Glucose [Mass/Vol] 114 mg/dL Critically high 74-106 [facility] Comment on above: Performed By: #### T 7, LIPID, TSH, CMP ####[facility] Ohaovpywih6774 [place] [address]Dr. Tadeo Smyth Potassium [Moles/Vol] 3.6 mmol/L Normal 3.5-5.1 [facility] Comment on above: Performed By: #### T 7, LIPID, TSH, CMP ####[facility] Cukbxduooj3935 [place] [address]Dr. Tadeo Smyth Protein [Mass/Vol] 8.5 g/dL Critically high 6.4-8.2 [facility] Comment on above: Performed By: #### T 7, LIPID, TSH, CMP ####[facility] Vbcvbppeoe0518 [place] [address]Dr. Tadeo Smyth Sodium [Moles/Vol] 140 mmol/L Normal 136-145 [facility] Comment on above: Performed By: #### T 7, LIPID, TSH, CMP ####[facility] Fdggmjsiqy9511 [place] [address]Dr. Tadeo Smyth Urea nitrogen [Mass/Vol] 23.0 mg/dL Critically high 7.0-18.0 [facility] Comment on above: Performed By: #### T 7, LIPID, TSH, CMP ####[facility] Jbjqkmiktw9864 [place] [address]Dr. Tadeo Smyth Urea nitrogen/Creatinine [Mass ratio] 25.0 mg/mg Normal [facility] Comment on above: Performed By: #### T 7, LIPID, TSH, CMP ####[facility] Ltyhsthuxl0034 [place] [address]Dr. Tadeo Smyth TSHon 07-08-2022 TSH 3.748 uIU/mL Critically high 0.358-3.740 [facility] Comment on above: Performed By: #### T 7, LIPID, TSH, CMP ####[facility] Vtdfgoasgb4[address] [place], [place] [address]Dr. Tadeo Smyth UA RANDOM W/MICROSCOPICon BACTERIA TRACE Abnormal NONE SEEN [facility] Comment on above: Performed By: #### U AMIC ####[facility] Mvgtvxjdon48[address] [place], [place] [address]Dr. Tadeo Smyth Bilirubin Ql (U) Negative Normal NEGATIVE [facility] Comment on above: Performed By: #### U AMIC ####[facility] Zrdjyiodis067[address] [place], [place] [address]Dr. Tadeo Smyth CAST NONE SEEN Normal NONE SEEN [facility] Comment on above: Performed By: #### U AMIC ####[facility] Ocqguxeebv46[address] [place], [place] [address]Dr. Tadeo Smyth Clarity (U) CLEAR Normal CLEAR [facility] Comment on above: Performed By: #### U AMIC ####[facility] Gndhlyuaxo[address] [place], [place] [address]Dr. Tadeo Smyth Color (U) YELLOW Normal YELLOW [facility] Comment on above: Performed By: #### U AMIC ####[facility] Xwdfphxwif25[address] [place], [place] [address]Dr. Tadeo Smyth Crystals LM Nom (Urine sed) NONE SEEN Normal NONE SEEN [facility] Comment on above: Performed By: #### U AMIC ####[facility] Ynqiqttnvx7013 [place] [address]Dr. Tadeo Smyth Epithelial cells LM Ql (Urine sed) FEW Abnormal NONE SEEN /RARE [facility] Comment on above: Performed By: #### U AMIC ####[facility] Tzqkhjnmmv9444 [place] [address]Dr. Tadeo Smyth Glucose Ql (U) Negative Normal NEGATIVE [facility] Comment on above: Performed By: #### U AMIC ####[facility] Ypodnkueue7[address] [place], [place] [address]Dr. Tadeo Smyth Hemoglobin Ql (U) SMALL Abnormal NEGATIVE [facility] Comment on above: Performed By: #### U AMIC ####[facility] Upiyogxnwt[address] [place], [place] [address]Dr. Tadeo Smyth Ketones Ql (U) TRACE Abnormal NEGATIVE [facility] Comment on above: Performed By: #### U AMIC ####[facility] Ibwziedryx87[address] [place], [place] [address]Dr. Tadeo Smyth LEUKOCYTES TRACE Abnormal NEGATIVE [facility] Comment on above: Performed By: #### U AMIC ####[facility] Hxofvjalvt89[address] [place], [place] [address]Dr. Tadeo Smyth MUCOUS NONE SEEN Normal NONE SEEN [facility] Comment on above: Performed By: #### U AMIC ####[facility] Jnpnwkrsvu4669[address] [place], [place] [address]Dr. Tadeo Smyth Nitrite Ql (U) Negative Normal NEGATIVE [facility] Comment on above: Performed By: #### U AMIC ####[facility] Azvmwclovi624[address] [place], [place] [address]Dr. Tadeo Smyth pH (U) 6.5 [pH] Normal 5-9 [facility] Comment on above: Performed By: #### U AMIC ####[facility] Zjiheigwqz2760[address] [place], [place] [address]Dr. Tadeo Smyth RBC 5-10 Abnormal 0-2 [facility] Comment on above: Performed By: #### U AMIC ####[facility] Vqklhlxrsp4420[address] [place], [place] [address]Dr. Tadeo Smyth SPEC GRAVITY 1.020 Normal 1.005-<=1.0 25 [facility] Comment on above: Performed By: #### U AMIC ####[facility] Qoplkqmuxb36[address] [place], [place] [address]Dr. Tadeo Smyth UA PROTEIN 30 mg/dl Abnormal NEGATIVE/ TRACE [facility] Comment on above: Performed By: #### U AMIC ####[facility] Jejridbzfk5310 [place] [phone]. Tadeo Smyth Urobilinogen Qn (U) 0.2 {Benito'U}/dL Normal 0.2 - 1. 0 [facility] Comment on above: Performed By: #### U AMIC ####[facility] Ldkexluqph6992 [place] [phone]. Tadeo Smyth WBC 2-5 Abnormal NONE SEEN [facility] Comment on above: Performed By: #### U AMIC ####[facility] Saeleiwtya1958 [place] [address]Dr. Tadeo Smyth Covid-19 PCR (CVDTBH)on 06-07 SARS-CoV-2 (COVID-19) RNA CHEN+probe Ql (Unsp spec) Not detected Normal NOT DETECTED [facility] Comment on above: Result Comment: [...] for this test is supported by the [place] of Health and Human Service's declaration that [...] be used). Performed By: #### C VDTBH ####[facility] Tfdmqgodda5330 [place] [phone]. Tadeo Smyth CULTURE URINEon 06-09-2022 CULTURE URINE Normal [facility] Comment on above: Performed By: #### U RCX ####[facility] Exhjotffwa[address] [place], [place] [address]Dr. Tadeo Smyth GI PANEL (PCR)on 06-07-2022 Adenovirus F 40/41 Not detected Normal NOT DETECTED [facility] Comment on above: Performed By: #### G IPANEL ####[facility] Kysvkckqpp967[address] [place], [place] [address]Dr. Margotnicole Smyth Astrovirus Not detected Normal NOT DETECTED [facility] Comment on above: Performed By: #### G IPANEL ####[facility] Jtcizutecb33[address] [place], [place] [address]Dr. nicole Smyth C. Diff toxin A/B Not detected Normal NOT DETECTED [facility] Comment on above: Performed By: #### G IPANEL ####[facility] Xmpzggdwkb8765[address] [place], [place] [address]Dr. Margotnicole Smyth Campylobacter Not detected Normal NOT DETECTED [facility] Comment on above: Performed By: #### G IPANEL ####[facility] Bwtmpgrrfk46364[address] [place], [place] [address]Dr. nicole [facility] Cryptosporidium Not detected Normal NOT DETECTED [facility] Comment on above: Performed By: #### G IPANEL ####[facility] Wuhelooxmb8735[address] [place], [place] [address]Dr. nicole Smyth Cyclos. Cayetanensis Not detected Normal NOT DETECTED [facility] Comment on above: Performed By: #### G IPANEL ####[facility] Hobbsjabhj7840[address] [place], [place] [address]Dr. nicole Smyth E. Coli O157 Not Applicable Normal Not Applicable [facility] Comment on above: Performed By: #### G IPANEL ####[facility] Zxlvrtqrlj659[address] [place], [place] [address]Dr. [facility] E. histolytica Not detected Normal NOT DETECTED [facility] Comment on above: Performed By: #### G IPANEL ####[facility] Nquitilhys7260[address] [place], [place] [address]Dr. nicole [facility] EAEC Not detected Normal NOT DETECTED [facility] Comment on above: Performed By: #### G IPANEL ####[facility] Yzmxbnvqtx3528 [place] [phone]. Tadeo Smyth EIEC Not detected Normal NOT DETECTED [facility] Comment on above: Performed By: #### G IPANEL ####[facility] Zdpbmoftbc0281 [place] [address]Dr. Tadeo Smyth EPEC Not detected Normal NOT DETECTED [facility] Comment on above: Performed By: #### G IPANEL ####[facility] Khjbsrmrvb989[address] [place], [place] [address]Dr. Tadeo Smyth ETEC Not detected Normal NOT DETECTED [facility] Comment on above: Performed By: #### G IPANEL ####[facility] Mtaiqllkwq468[address] [place], [place] [address]Dr. Margotnicole Smyth G. Lamblia Not detected Normal NOT DETECTED [facility] Comment on above: Performed By: #### G IPANEL ####[facility] Smyvshnxta[address] [place], [place] [address]Dr. Tadeo Smyth GIPSIER[facility]ENTERL CONTROLS PASSED Normal [facility] Comment on above: Performed By: #### G IPANEL ####[facility] Zbsqkwsevh310[address] [place], [place] [address]Dr. Tadeo Smyth [facility] HEADER GI PANEL BACTERIA Normal [facility] Comment on above: Performed By: #### G IPANEL ####[facility] Zbrlndswsi1959[address] [place], [place] [address]Dr. Tadeo MEZAHD ECOLI GI PANEL DIARRHEAGEN IC E.COLI / SHIGELLA Normal [facility] Comment on above: Performed By: #### G IPANEL ####[facility] Bttmbdqebg9[address] [place], [place] [address]Dr. Tadeo Smyth GIPNLHD INFO SEE BELOW Normal [facility] Comment on above: Result Comment: EAEC - Enteroaggregative E. Coli EPEC- Enteropathogenic E. Coli ETEC- Enterotoxigenic E. Coli lt/st STEC- Shigella-like toxin-producing E. Coli stx1/stx2 EIEC- Shigella/Enteroinvasive E. Coli Performed By: #### G IPANEL ####[facility] Ztnonneaoj7023[address] [place], [place] [address]Dr. Tadeo Smyth GIPNLHD PARASITES GI PANEL PARASITES Normal [facility] Comment on above: Performed By: #### G IPANEL ####[facility] Jyhrgrvcbf865[address] [place], [place] [address]Dr. Tadeo Smyth GIPNLHD VIRUS GI PANEL VIRUSES Normal [facility] Comment on above: Performed By: #### G IPANEL ####[facility] Bvfdurpvgx988[address] [place], [place] [address]Dr. Tadeo Smyth Norovirus GI/GII Not detected Normal NOT DETECTED [facility] Comment on above: Performed By: #### G IPANEL ####[facility] Ilqtelqfvu228[address] [place], [place] [address]Dr. Tadeo Smyth P. Shigelloides Not detected Normal NOT DETECTED [facility] Comment on above: Performed By: #### G IPANEL ####[facility] Cbvksvwomz4[address] [place], [place] [address]Dr. Margotnicole Smyth Rotavirus A Not detected Normal NOT DETECTED [facility] Comment on above: Performed By: #### G IPANEL ####[facility] Qjbvxnjmrl3640[address] [place], [place] [address]Dr. Tadeo Smyth Salmonella Not detected Normal NOT DETECTED [facility] Comment on above: Performed By: #### G IPANEL ####[facility] Kwshkglgfw6812[address] [place], [place] [address]Dr. Margotnicole Smyth Sapovirus Not detected Normal NOT DETECTED [facility] Comment on above: Performed By: #### G IPANEL ####[facility] Tdpmflxanr743[address] [place], [place] [address]Dr. Margotnicole Smyth STEC Not detected Normal NOT DETECTED [facility] Comment on above: Performed By: #### G IPANEL ####[facility] Aepslldnpm0800[address] [place], [place] [address]Dr. Tadeo Smyth Vibrio Not detected Normal NOT DETECTED [facility] Comment on above: Performed By: #### G IPANEL ####[facility] Ssmxwgkluq0520[address] [place], [place] [address]Dr. Margotnicole Smyth Vibrio Cholera Not detected Normal NOT DETECTED [facility] Comment on above: Performed By: #### G IPANEL ####[facility] Royotcncit3125[address] [place], [place] [address]Dr. Tadeo Smyth Y. Enterocolitica Not detected Normal NOT DETECTED [facility] Comment on above: Performed By: #### G IPANEL ####[facility] Ibaxwkuxum147[address] [place], [place] [address]Dr. Tadeo Smyth AMYLASEon 06-06-2022 Amylase [Catalytic activity/Vol] 61 U/L Normal 25-115 [facility] Comment on above: Performed By: #### A MY, LIPA ####[facility] Tiwerlvoqh4601[address] [place], [place] [address]Dr. Tadeo Smyth CBC AUTO DIFFon 06-06-2022 BASO # 0.0 103/ul Normal 0.0-0.1 [facility] Comment on above: Performed By: #### C BC ####[facility] Suygjbsskk3[address] [place], [place] [address]Dr. Tadeo Smyth Basophils/100 WBC (Bld) 0.5 % Normal 0.2-2.0 [facility] Comment on above: Performed By: #### C BC ####[facility] Wpgbilyiah120[address] [place], [place] [address]Dr. Tadeo Smyth EO # 0.2 103/ul Normal 0.0-0.7 [facility] Comment on above: Performed By: #### C BC ####[facility] Qsimoagdob9525[address] [place], [place] [address]Dr. Tadeo Smyth Eosinophils/100 WBC (Bld) 3.4 % Normal 0.9-7.0 [facility] Comment on above: Performed By: #### C BC ####[facility] Vtaykpjqsr40[address] [place], [place] [address]Dr. Tadeo Smyth Erythrocyte distribution width (RBC) [Ratio] 13.2 % Normal 11.0-15.0 [facility] Comment on above: Performed By: #### C BC ####[facility] Zsmgojezcs07[address] [place], [place] [address]Dr. Tadeo Smyth Hematocrit (Bld) [Volume fraction] 38.3 % Normal 36.0-48.0 [facility] Comment on above: Performed By: #### C BC ####[facility] Pfuleekhel7039 [place] [address]DrNeo Smyth Hemoglobin (Bld) [Mass/Vol] 12.0 g/dL Normal 12.0-16.0 [facility] Comment on above: Performed By: #### C BC ####[facility] Olguifycss[address] [place], [place] [address]DrNeo Smyth IG # 0.01 10e3/ul Normal 0.00-0.03 [facility] Comment on above: Performed By: #### C BC ####[facility] Uhsdtszktq317[address] [place], [place] [address]DrNeo Smyth IG % 0.2 % Normal 0.0-0.5 [facility] Comment on above: Performed By: #### C BC ####[facility] Mvpeylpbwx797[address] [place], [place] [address]DrNeo Smyth LYMPH # 1.7 103/ul Normal 1.2-3.8 [facility] Comment on above: Performed By: #### C BC ####[facility] Sssssdugag[address] [place], [place] [address]DrNeo Smyth Lymphocytes/100 WBC (Bld) 28.1 % Normal 20.5-60.0 [facility] Comment on above: Performed By: #### C BC ####[facility] Awjevnuwxi[address] [place], [place] [address]DrNeo Smyth MANUAL DIFF REQ NO Normal [facility] Comment on above: Performed By: #### C BC ####[facility] Ktbaioljqr9368[address] [place], [place] [address]DrNeo Smyth MCH (RBC) [Entitic mass] 28.5 pg Normal 26.7-34.0 [facility] Comment on above: Performed By: #### C BC ####[facility] Fmylarnsay342[address] [place], [place] [address]DrNeo Smyth MCHC (RBC) [Mass/Vol] 31.3 g/dL Normal 29.9-35.2 [facility] Comment on above: Performed By: #### C BC ####[facility] Cpoyfyojjn2160 [place] [address]DrNeo Frostnicole Haja MCV (RBC) [Entitic vol] 91.0 fL Normal 81.0-99.0 [facility] Comment on above: Performed By: #### C BC ####[facility] Vlsayzxlkr4686 [place] [address]DrNeo Smyth MONO # 0.4 103/ul Normal 0.3-0.8 [facility] Comment on above: Performed By: #### C BC ####[facility] Hawnywpfrj1973 [place] [address]DrNeo Smyth Monocytes/100 WBC (Bld) 7.1 % Normal 1.7-12.0 [facility] Comment on above: Performed By: #### C BC ####[facility] Ifaeqemsqr2600[address] [place], [place] [address]DrNeo Smyth NEUT # 3.6 103/ul Normal 1.4-6.5 [facility] Comment on above: Performed By: #### C BC ####[facility] Zmdcxucygk288[address] [place], [place] [address]DrNeo Smyth Neutrophils/100 WBC (Bld) 60.7 % Normal 43.0-75.0 [facility] Comment on above: Performed By: #### C BC ####[facility] Mafioentyo[address] [place], [place] [address]DrNeo Smyth Platelet mean volume (Bld) [Entitic vol] 8.9 fL Critically low 9.5-13.5 [facility] Comment on above: Performed By: #### C BC ####[facility] Majlyngeig6[address] [place], [place] [address]Dr. Tadeo Smyth PLT 374 103/ul Normal 150-450 [facility] Comment on above: Performed By: #### C BC ####[facility] Lfujngncqi7971 [place] [id number] Smyth RBC 4.21 106/ul Normal 4.20-5.40 [facility] Comment on above: Performed By: #### C BC ####[facility] Qmavrryskg7155[address] [place], [place] [address]Dr. Tadeo Smyth WBC 5.9 103/ul Normal 4.0-11.0 [facility] Comment on above: Performed By: #### C BC ####[facility] Nhvondtnse[address] [place], [place] [address]Dr. Tadeo Smyth CT ABD/PELV W CONon 06-06-[address] ABD/PELV W CON Normal [facility] ER URINE PROFILEon 2 Bilirubin Ql (U) Negative Normal NEGATIVE [facility] Comment on above: Performed By: #### KAROL MERCHANT ####[facility] Hnkywegbbi458[address] [place], [place] [address]Dr. Tadeo Smyth Clarity (U) CLOUDY Abnormal CLEAR [facility] Comment on above: Performed By: #### KAROL MERCHANT ####[facility] Fivqfaamhb[address] [place], [place] [address]Dr. Tadeo Smyth Color (U) LT. YELLOW Normal YELLOW [facility] Comment on above: Performed By: #### KAROL MERCHANT ####[facility] Gytvlyzzyy[address] [place], [place] [address]Dr. Tadeo Smyth ERUALEMD A micrscopic examina tion will be performed if indicated. Normal [facility] Comment on above: Performed By: #### KAROL MERCHANT ####[facility] Gqwvgadntd[address] [place], [place] [address]Dr. Tadeo Smyth Glucose Ql (U) Negative Normal NEGATIVE [facility] Comment on above: Performed By: #### KAROL MERCHANT ####[facility] Olmsnxvmya[address] [place], [place] [address]Dr. Tadeo Smyth Hemoglobin Ql (U) TRACE-INTACT Abnormal NEGATIVE [facility] Comment on above: Performed By: #### SANDRO MERCHANTRO ####[facility] Zxqqojwdnd[address] [place], [place] [address]Dr. Tadeo Smyth Ketones Ql (U) Negative Normal NEGATIVE [facility] Comment on above: Performed By: #### SANDRO MERCHANTRO ####[facility] Iuaujqqkut2616 [place] [address]Dr. Tadeo Smyth LEUKOCYTES SMALL Abnormal NEGATIVE [facility] Comment on above: Performed By: #### Matthew FRANCISCO UMICRO ####[facility] Oklmknvkvl6537 [place] [address]Dr. Tadeo Smyth Nitrite Ql (U) Negative Normal NEGATIVE [facility] Comment on above: Performed By: #### RANDI MERCHANTICRO ####[facility] Vuqhenxtyd4373 [place] [address]Dr. Tadeo Smyth pH (U) 6.0 [pH] Normal 5-9 [facility] Comment on above: Performed By: #### SANDRO MERCHANTRO ####[facility] Tshpplvdks[address] [place], [place] [address]Dr. Tadeo Smyth SPEC GRAVITY 1.020 Normal 1.005-<=1.[address] [place] [address] Comment on above: Performed By: #### RANDI MERCHANTICRO ####[facility] Sgkbafhmfp[address] [place], [place] [address]Dr. Tadeo Smyth UA PROTEIN Negative Normal NEGATIVE/ TRACE [facility] Comment on above: Performed By: #### RANDI MERCHANTICRO ####[facility] Twguabmdlv[address] [place], [place] [address]Dr. Tadeo Smyth UR MICRO IND INDICATED Normal [facility] Comment on above: Performed By: #### RANDI MERCHANTICRO ####[facility] F[address]qrmdnxfv[address] [place] [address]Dr. Tadeo Smyth Urobilinogen Qn (U) 0.2 {Benito'U}/dL Normal 0.2 - 1. 0 [facility] Comment on above: Performed By: #### Matthew FRANCISCO UMICRO ####[facility] Rialrfhzze[address] [place] [address]Dr. Tadeo Smyth LIPASEon 06-06-2022 Lipase [Catalytic activity/Vol] 100.0 U/L Normal 73.0-393.0 [facility] Comment on above: Performed By: #### A KEITH MARTÍNEZ ####[facility] Sssymjrtxd[address] [place], [place] [address]Dr. Tadeo Smyth PROF 14(COMP METB)on 022 Albumin [Mass/Vol] 3.3 g/dL Critically low 3.4-5.0 [facility] Comment on above: Performed By: #### C MP ####[facility] Avzaomnmtu[address] [place], [place] [address]Dr. Tadeo Smyth Albumin/Globulin [Mass ratio] 0.9 {ratio} Normal [facility] Comment on above: Performed By: #### C MP ####[facility] Dkboohbjlf[address] [place], [place] [address]Dr. Tadeo Smyth ALP [Catalytic activity/Vol] 140 U/L Critically high 46-116 [facility] Comment on above: Performed By: #### C MP ####[facility] Ppnoxbdsug[address] [place], [place] [address]Dr. Tadeo Smyth ALT [Catalytic activity/Vol] 23 U/L Normal 14-59 [facility] Comment on above: Performed By: #### C MP ####[facility] Kgyhtsdvyt[address] [place], [place] [address]Dr. Tadeo Smyth Anion gap [Moles/Vol] 11.6 mmol/L Normal [facility] Comment on above: Performed By: #### C MP ####[facility] Safwgsqktp[address] [place], [place] [address]Dr. Tadeo Smyth AST [Catalytic activity/Vol] 18 U/L Normal 15-37 [facility] Comment on above: Performed By: #### C MP ####[facility] Rtdjdnnmrw[address] [place], [place] [address]Dr. Tadeo Smyth Bilirubin [Mass/Vol] 0.2 mg/dL Normal 0.2-1.0 [facility] Comment on above: Performed By: #### C MP ####[facility] Jypdtsaito[address] [place], [place] [address]Dr. Tadeo Smyth Calcium [Mass/Vol] 8.8 mg/dL Normal 8.5-10.1 [facility] Comment on above: Performed By: #### C MP ####[facility] [address]ujwmitfcj[address] [place] [address]Dr. Tadeo Smyth Chloride [Moles/Vol] 109 mmol/L Critically high 98-107 [facility] Comment on above: Performed By: #### C MP ####[facility] Tyjtngllbh[address] [place] [address]Dr. Tadeo Smyth CO2 [Moles/Vol] 26.3 mmol/L Normal 21.0-32.0 [facility] Comment on above: Performed By: #### C MP ####[facility] Bknisxajgu[address] [place], [place] [address]Dr. Tadeo Smyth Creatinine [Mass/Vol] 0.81 mg/dL Normal 0.55-1.02 [facility] Comment on above: Performed By: #### C MP ####[facility] Tulmffgoas[address] [place], [place] [address]Dr. Tadeo Smyth EGFR-AF KYRGYZ >60 Normal >=60 [facility] Comment on above: Performed By: #### C MP ####[facility] Jbmhmptdnr[address] [place], [place] [address]Dr. Tadeo Smyth EGFR-NON AF KYRGYZ >60 Normal >=60 [facility] Comment on above: Performed By: #### C MP ####[facility] Iecdfcvgrp[address] [place], [place] [address]Dr. Tadeo Smyth Globulin (S) [Mass/Vol] 3.7 g/dL Normal [facility] Comment on above: Performed By: #### C MP ####[facility] Xqvwlexeda[address] [place] [address]Dr. Tadeo Haja Glucose [Mass/Vol] 90 mg/dL Normal 74-106 [facility] Comment on above: Performed By: #### C MP ####[facility] Axtchnlyoc[address] [place], [place] [address]Dr. Tadeo Haja Potassium [Moles/Vol] 3.9 mmol/L Normal 3.5-5.1 [facility] Comment on above: Performed By: #### C MP ####[facility] Eoixdvijml0[address] [place] [address]Dr. Tadeo Smyth Protein [Mass/Vol] 7.0 g/dL Normal 6.4-8.2 [facility] Comment on above: Performed By: #### C MP ####[facility] Jllgxdtghl83[address] [place] [address]Dr. Tadeo Smyth Sodium [Moles/Vol] 143 mmol/L Normal 136-145 [facility] Comment on above: Performed By: #### C MP ####[facility] Knmoaiewcl0628 [place] [address]Dr. Tadeo Smyth Urea nitrogen [Mass/Vol] 12.0 mg/dL Normal 7.0-18.0 [facility] Comment on above: Performed By: #### C MP ####[facility] Xlmuvwfrqx[address] [place], [place] [address]Dr. Tadeo Smyth Urea nitrogen/Creatinine [Mass ratio] 14.8 mg/mg Normal [facility] Comment on above: Performed By: #### C MP ####[facility] [address]ocbgfmyx[address] [place] [address]Dr. Tadeo Haja URINE MICROSCOPIC ONLYon BACTERIA LARGE Abnormal NONE SEEN The [facility] Comment on above: Performed By: #### SANDRO MERCHANTRO ####[facility] Acxjrlbfzn[address] [place] [address]Dr. Tadeo Smyth Bacteria identified Cx Nom (U) INDICATED Normal [facility] Comment on above: Performed By: #### SANDRO MERCHANTRO ####[facility] Hdzuwffuwm[address] [place] [address]Dr. Tadeo Smyth CAST NONE SEEN Normal NONE SEEN The [facility] Comment on above: Performed By: #### SANDRO MERCHANTRO ####[facility] Ssgkvogrrr[address] [place] [address]Dr. Tadeo Smyth Crystals LM Nom (Urine sed) NONE SEEN Normal NONE SEEN The [facility] Comment on above: Performed By: #### SANDRO MERCHANTRO ####[facility] Esystpsree24[address] [place] [address]Dr. Tadeo Smyth Epithelial cells LM Ql (Urine sed) RARE Normal NONE SEEN /RARE [facility] Comment on above: Performed By: #### KAROL MERCHANT ####[facility] Xgrywpqzog69[address] [place] [address]Dr. Tadeo Smyth MUCOUS TRACE Abnormal NONE SEEN The [facility] Comment on above: Performed By: #### KAROL MERCHANT ####[facility] Icslczpekr6[address] [place] [address]Dr. Tadeo Smyth RBC 0-2 Normal 0-2 [facility] Comment on above: Performed By: #### KAROL MERCHANT ####[facility] Cylnelpqtr[address] [place] [address]Dr. Tadeo Smyth WBC 2-5 Abnormal NONE SEEN The [facility] Comment on above: Performed By: #### KAROL MERCHANT ####[facility] Eqbhbewxfj[address] [place], [place] [address]Dr. Tadeo Smyth AMYLASEon 06-04-2022 Amylase [Catalytic activity/Vol] 61 U/L Normal 25-115 [facility] Comment on above: Performed By: #### A MY, CMP, LIPA ####[facility] Oqldirrvxi[address] [place], [place] [address]Dr. Tadeo Smyth CBC AUTO DIFFon 06-04-2022 BASO # 0.0 103/ul Normal 0.0-0.1 [facility] Comment on above: Performed By: #### C BC ####[facility] Kurtvytkka[address] [place] [address]Dr. Tadeo Haja Basophils/100 WBC (Bld) 0.5 % Normal 0.2-2.0 [facility] Comment on above: Performed By: #### C BC ####[facility] Shvefvhgqf27[address] [place] [address]Dr. Tadeo Smyth EO # 0.3 103/ul Normal 0.0-0.7 [facility] Comment on above: Performed By: #### C BC ####[facility] Brpspshvep17[address] [place] [phone]. Tadeo Smyth Eosinophils/100 WBC (Bld) 4.7 % Normal 0.9-7.0 [facility] Comment on above: Performed By: #### C BC ####[facility] Axduzfhghq15[address] [place] [address]Dr. Tadeo Smyth Erythrocyte distribution width (RBC) [Ratio] 13.2 % Normal 11.0-15.0 [facility] Comment on above: Performed By: #### C BC ####[facility] Kbkobgfmjj[address] [place], [place] [address]Dr. Tadeo Smyth Hematocrit (Bld) [Volume fraction] 36.9 % Normal 36.0-48.0 [facility] Comment on above: Performed By: #### C BC ####[facility] Jyeendnlgk[address] [place], [place] [address]Dr. Tadeo Smyth Hemoglobin (Bld) [Mass/Vol] 11.9 g/dL Critically low 12.0-16.0 [facility] Comment on above: Performed By: #### C BC ####[facility] Z[address]qfznrcd[address] [place], [place] [address]Dr. Tadeo Smyth IG # 0.01 10e3/ul Normal 0.00-0.03 [facility] Comment on above: Performed By: #### C BC ####[facility] Tcfndawlgv[address] [place], [place] [address]Dr. Tadeo Smyth IG % 0.2 % Normal 0.0-0.5 [facility] Comment on above: Performed By: #### C BC ####[facility] Bkkocmyrnz[address] [place], [place] [address]Dr. Tadeo Smyth LYMPH # 2.3 103/ul Normal 1.2-3.8 [facility] Comment on above: Performed By: #### C BC ####[facility] Graqsyiiyx[address] [place], [place] [address]Dr. Tadeo Smyth Lymphocytes/100 WBC (Bld) 37.3 % Normal 20.5-60.0 [facility] Comment on above: Performed By: #### C BC ####[facility] Arkeadlnme[address] [place] [address]Dr. Tadeo Smyth MANUAL DIFF REQ NO Normal [facility] Comment on above: Performed By: #### C BC ####[facility] Rvmmjruwkg6684 [place] [address]Dr. Tadeo Smyth MCH (RBC) [Entitic mass] 29.0 pg Normal 26.7-34.0 [facility] Comment on above: Performed By: #### C BC ####[facility] Jxavayuuvp[address] [place], [place] [address]Dr. Tadeo Smyth MCHC (RBC) [Mass/Vol] 32.2 g/dL Normal 29.9-35.2 [facility] Comment on above: Performed By: #### C BC ####[facility] Sancqnpdfo[address] [place], [place] [address]Dr. Margotnicole Smyth MCV (RBC) [Entitic vol] 90.0 fL Normal 81.0-99.0 [facility] Comment on above: Performed By: #### C BC ####[facility] Axeachkymk[address] [place], [place] [address]Dr. Tadeo Smyth MONO # 0.4 103/ul Normal 0.3-0.8 [facility] Comment on above: Performed By: #### C BC ####[facility] Hayyrfzudb7[address] [place], [place] [address]Dr. Tadeo Smyth Monocytes/100 WBC (Bld) 6.8 % Normal 1.7-12.0 [facility] Comment on above: Performed By: #### C BC ####[facility] Oamddukiij8764[address] [place], [place] [address]Dr. Tadeo Smyth NEUT # 3.2 103/ul Normal 1.4-6.5 [facility] Comment on above: Performed By: #### C BC ####[facility] Zxtmsvlszs[address] [place], [place] [address]Dr. Tadeo Smyth Neutrophils/100 WBC (Bld) 50.5 % Normal 43.0-75.0 [facility] Comment on above: Performed By: #### C BC ####[facility] Krnbtcwvkz6652 [place] [phone]. Margotnicole Haja Platelet mean volume (Bld) [Entitic vol] 8.9 fL Critically low 9.5-13.5 [facility] Comment on above: Performed By: #### C BC ####[facility] Rdhzewuhft37[address] [place] [address]Dr. Margotnicole Haja PLT 387 103/ul Normal 150-450 [facility] Comment on above: Performed By: #### C BC ####[facility] Hfqxlemvhq500[address] [place] [address]Dr. Tadeo Smyth RBC 4.10 106/ul Critically low 4.20-5.40 [facility] Comment on above: Performed By: #### C BC ####[facility] Kimljxsnzk4833 [place] [address]Dr. Tadeo Smyth WBC 6.2 103/ul Normal 4.0-11.0 [facility] Comment on above: Performed By: #### C BC ####[facility] Mgxpuqgbba[address] [place], [place] [address]Dr. Tadeo Smyth CT ABD/PELV W CONon 06-04-[address] ABD/PELV W CON Normal [facility] ER URINE PROFILEon 2 Bilirubin Ql (U) Negative Normal NEGATIVE The [facility] Comment on above: Performed By: #### RANDI MERCHANTICRO ####[facility] Mtfdnndlac[address] [place], [place] [address]Dr. Tadeo Smyth Clarity (U) CLEAR Normal CLEAR The [facility] Comment on above: Performed By: #### RANDI MERCHANTICRO ####[facility] Lddeulwgvd9085 [place] [address]Dr. Tadeo Smyth Color (U) LT. YELLOW Normal YELLOW The [facility] Comment on above: Performed By: #### Matthew FRANCISCO UMICRO ####[facility] Dwpladbfbp[address] [place], [place] [address]Dr. Tadeo Smyth ERUAHD A micrscopic examina tion will be performed if indicated. Normal The [facility] Comment on above: Performed By: #### KAROL MERCHANT ####[facility] [address]qfpfqjbi[address] [place], [place] [address]Dr. Tadeo Smyth Glucose Ql (U) Negative Normal NEGATIVE The [facility] Comment on above: Performed By: #### KAROL MERCHANT ####[facility] Jedmaeudqt4238 [place] [address]Dr. Tadeo Smyth Hemoglobin Ql (U) TRACE-INTACT Abnormal NEGATIVE The [facility] Comment on above: Performed By: #### KAROL MERCHANT ####[facility] Fuevtrzcdy[address] [place], [place] [address]Dr. Tadeo Smyth Ketones Ql (U) Negative Normal NEGATIVE The [facility] Comment on above: Performed By: #### KAROL MERCHANT ####[facility] Mnreekaohz[address] [place], [place] [address]Dr. Tadeo Smyth LEUKOCYTES Negative Normal NEGATIVE The [facility] Comment on above: Performed By: #### KAROL MERCHANT ####[facility] Psvxxiqfgh067[address] [place], [place] [address]Dr. Tadeo Smyth Nitrite Ql (U) Negative Normal NEGATIVE The [facility] Comment on above: Performed By: #### KAROL MERCHANT ####[facility] Hcbmmqdsuc[address] [place], [place] [address]Dr. Tadeo Smyth pH (U) 6.5 [pH] Normal 5-9 [facility] Comment on above: Performed By: #### KAROL MERCHANT ####[facility] Zlrtacipgt[address] [place], [place] [address]Dr. Tadeo Smyth SPEC GRAVITY 1.015 Normal 1.005-<=1.0 25 [facility] Comment on above: Performed By: #### KAROL MERCHANT ####[facility] Whgijvotqp[address] [place], [place] [address]Dr. Tadeo Smyth UA PROTEIN Negative Normal NEGATIVE/ TRACE The [facility] Comment on above: Performed By: #### KAROL MERCHANT ####[facility] Slyysqyrgr[address] [place], [place] [address]Dr. Tadeo Smyth UR MICRO IND INDICATED Normal [facility] Comment on above: Performed By: #### KAROL MERCHANT ####[facility] Dyxuvrjdfm1858 [place] [address]Dr. Tadeo Smyth Urobilinogen Qn (U) 0.2 {Benito'U}/dL Normal 0.2 - 1. 0 The [facility] Comment on above: Performed By: #### KAROL MERCHANT ####[facility] Wycjpdrndv6027 [place] [address]Dr. Tadeo Smyth LIPASEon 06-04-2022 Lipase [Catalytic activity/Vol] 81.0 U/L Normal 73.0-393.0 [facility] Comment on above: Performed By: #### A MY, CMP, LIPA ####[facility] Pxorzgveir5155 [place] [address]Dr. Tadeo Smyth PROF 14(COMP METB)on 022 Albumin [Mass/Vol] 3.6 g/dL Normal 3.4-5.0 [facility] Comment on above: Performed By: #### A MY, CMP, LIPA ####[facility] Ieifteepcc5270 [place] [address]Dr. Tadeo Smyth Albumin/Globulin [Mass ratio] 1.0 {ratio} Normal The [facility] Comment on above: Performed By: #### A MY, CMP, LIPA ####[facility] Brxkmqrqsu9602 [place] [address]Dr. Tadeo Smyth ALP [Catalytic activity/Vol] 150 U/L Critically high 46-116 [facility] Comment on above: Performed By: #### A MY, CMP, LIPA ####[facility] Zezknrzcfx9824 [place] [address]Dr. Tadeo Smyth ALT [Catalytic activity/Vol] 23 U/L Normal 14-59 [facility] Comment on above: Performed By: #### A MY, CMP, LIPA ####[facility] Bkxacrdaug3910 [place] [address]Dr. Tadeo Smyth Anion gap [Moles/Vol] 13.2 mmol/L Normal Th e [facility] Comment on above: Performed By: #### A MY, CMP, LIPA ####[facility] Jgkwfqmbql4917 [place] [address]Dr. Tadeo Smyth AST [Catalytic activity/Vol] 12 U/L Critically low 15-37 [facility] Comment on above: Performed By: #### A MY, CMP, LIPA ####[facility] Nvvuatsfqz9548 [place] [address]Dr. Tadeo Smyth Bilirubin [Mass/Vol] 0.1 mg/dL Critically low 0.2-1.0 The [facility] Comment on above: Performed By: #### A MY, CMP, LIPA ####[facility] Tlhboifskt[address] [place], [place] [address]Dr. Tadeo Smyth Calcium [Mass/Vol] 9.0 mg/dL Normal 8.5-10.1 The [facility] Comment on above: Performed By: #### A MY, CMP, LIPA ####[facility] Jicukbuuyz[address] [place], [place] [address]Dr. Tadeo Smyth Chloride [Moles/Vol] 104 mmol/L Normal 98-107 [facility] Comment on above: Performed By: #### A MY, CMP, LIPA ####[facility] Tsfxovszeb[address] [place], [place] [address]Dr. Tadeo Smyth CO2 [Moles/Vol] 26.6 mmol/L Normal 21.0-32.0 [facility] Comment on above: Performed By: #### A MY, CMP, LIPA ####[facility] [address]vnadbvsj[address] [place], [place] [address]Dr. Tadeo Smyth Creatinine [Mass/Vol] 0.97 mg/dL Normal 0.55-1.02 The [facility] Comment on above: Performed By: #### A MY, CMP, LIPA ####[facility] Iygyntlcfp4843 [place] [address]Dr. Tadeo Smyth EGFR-AF KYRGYZ >60 Normal >=60 [facility] Comment on above: Performed By: #### A MY, CMP, LIPA ####[facility] Lujktpfmcu3701 [place] [address]Dr. Tadeo Smyth EGFR-NON AF KYRGYZ 60 mL/min/1.73m2 Normal >=60 [facility] Comment on above: Performed By: #### A MY, CMP, LIPA ####[facility] Omjwnibtgy7557 [place] [address]Dr. Tadeo Smyth Globulin (S) [Mass/Vol] 3.7 g/dL Normal [facility] Comment on above: Performed By: #### A MY, CMP, LIPA ####[facility] Phtscrxlan7739 [place] [address]Dr. Tadeo Smyth Glucose [Mass/Vol] 109 mg/dL Critically high 74-106 [facility] Comment on above: Performed By: #### A MY, CMP, LIPA ####[facility] Lgardveohy4274 [place] [address]Dr. Tadeo Smyth Potassium [Moles/Vol] 3.8 mmol/L Normal 3.5-5.1 [facility] Comment on above: Performed By: #### A MY, CMP, LIPA ####[facility] Bbeizlkrzr[address] [place], [place] [address]Dr. Tadeo Smyth Protein [Mass/Vol] 7.3 g/dL Normal 6.4-8.2 [facility] Comment on above: Performed By: #### A MY, CMP, LIPA ####[facility] Qyxmqxvqco9916 [place] [address]Dr. Tadeo Smyth Sodium [Moles/Vol] 140 mmol/L Normal 136-145 [facility] Comment on above: Performed By: #### A MY, CMP, LIPA ####[facility] Qnzgbkzupx9703 [place] [address]Dr. Tadeo Smyth Urea nitrogen [Mass/Vol] 21.0 mg/dL Critically high 7.0-18.0 [facility] Comment on above: Performed By: #### A MY, CMP, LIPA ####[facility] Ovhgfegqvv8730 [place] [address]Dr. Tadeo Smyth Urea nitrogen/Creatinine [Mass ratio] 21.6 mg/mg Normal [facility] Comment on above: Performed By: #### A MY, CMP, LIPA ####[facility] Pmimlodxkg2569 [place] [address]Dr. Tadeo Smyth URINE MICROSCOPIC ONLYon BACTERIA NONE SEEN Normal NONE SEEN The [facility] Comment on above: Performed By: #### E RUR, UMICRO ####[facility] Whrusmmume[address] [place], [place] [address]Dr. Tadeo Smyth Bacteria identified Cx Nom (U) NOT INDICATED Normal The [facility] Comment on above: Performed By: #### E RUR, UMICRO ####[facility] Estoedyhvg[address] [place], [place] [address]Dr. Tadeo Smyth CAST NONE SEEN Normal NONE SEEN The [facility] Comment on above: Performed By: #### E RUR, UMICRO ####[facility] Ovlouxamjl[address] [place], [place] [address]Dr. Tadeo Smyth Crystals LM Nom (Urine sed) NONE SEEN Normal NONE SEEN The [facility] Comment on above: Performed By: #### E RUR, UMICRO ####[facility] Qkkrkkfaaz[address] [place], [place] [address]Dr. Tadeo Smyth Epithelial cells LM Ql (Urine sed) FEW Abnormal NONE SEEN /RARE The [facility] Comment on above: Performed By: #### E RUR, UMICRO ####[facility] Kejfzeknut[address] [place], [place] [address]Dr. Tadeo Smyth MUCOUS NONE SEEN Normal NONE SEEN The [facility] Comment on above: Performed By: #### E RUR, UMICRO ####[facility] Cmmxqtjkea[address] [place], [place] [address]Dr. Tadeo Smyth RBC 0-2 Normal 0-2 [facility] Comment on above: Performed By: #### E RUR, UMICRO ####[facility] Mgjpppsvbp[address] [place], [place] [address]Dr. Tadeo Smyth WBC NONE SEEN Normal NONE SEEN The [facility] Comment on above: Performed By: #### E RUR, UMICRO ####[facility] Tjabbphdel[address]00 [place] [phone]. Tadeo Smyth MICRO OTHER TESTSOrdered By: Guillermo Rocha on 04-29-2022 Fecal WBC Lactoferrin Negative (04/29/22 8:00 AM) Normal Negative [facility] Man Sero CULTURE URINEon 03-31-2022 CULTURE URINE Normal [facility] Comment on above: Performed By: #### U RCX ####[facility] Dhbmpxfozn[address] [place], [place] [address]Dr. Tadeo Smyth CBC AUTO DIFFon 03-30-2022 BASO # 0.0 103/ul Normal 0.0-0.1 [facility] Comment on above: Performed By: #### C BC ####[facility] Zwbhjlavps3100 [place] [address]Dr. Tadeo Smyth Basophils/100 WBC (Bld) 0.4 % Normal 0.2-2.0 [facility] Comment on above: Performed By: #### C BC ####[facility] [facility] Oawjdmzcnj[address] [place], [place] [address]Dr. Tadeo Smyth EO # 0.3 103/ul Normal 0.0-0.7 [facility] Comment on above: Performed By: #### C BC ####[facility] Gvgqwmjtcl[address] [place], [place] [address]Dr. Tadeo Smyth Eosinophils/100 WBC (Bld) 5.1 % Normal 0.9-7.0 [facility] Comment on above: Performed By: #### C BC ####[facility] [address]zgcxdjnok[address] [place] [address]Dr. Tadeo Smyth Erythrocyte distribution width (RBC) [Ratio] 12.8 % Normal 11.0-15.0 [facility] Comment on above: Performed By: #### C BC ####[facility] Uisvdvlzlw[address] [place], [place] [address]Dr. Tadeo Smyth Hematocrit (Bld) [Volume fraction] 36.4 % Normal 36.0-48.0 [facility] Comment on above: Performed By: #### C BC ####[facility] Htsubtbdtg55[address] [place] [phone]. Tadeo Smyth Hemoglobin (Bld) [Mass/Vol] 12.0 g/dL Normal 12.0-16.0 [facility] Comment on above: Performed By: #### C BC ####[facility] Agyovlaquf[address] [place] [phone]. Tadeo Smyth IG # 0.02 10e3/ul Normal 0.00-0.03 [facility] Comment on above: Performed By: #### C BC ####[facility] Mieopuenmp2618 [place] [phone]. Tadeo Smyth IG % 0.4 % Normal 0.0-0.5 [facility] Comment on above: Performed By: #### C BC ####[facility] Tbczlpqfma28[address] [place] [address]Dr. Tadeo Smyth LYMPH # 1.4 103/ul Normal 1.2-3.8 [facility] Comment on above: Performed By: #### C BC ####[facility] Yergifwoio7278 [place] [address]Dr. Tadeo Smyth Lymphocytes/100 WBC (Bld) 25.5 % Normal 20.5-60.0 [facility] Comment on above: Performed By: #### C BC ####[facility] Qkihtdqenq8583 [place] [address]Dr. Tadeo Smyth MANUAL DIFF REQ NO Normal [facility] Comment on above: Performed By: #### C BC ####[facility] Hvuexsokld9930 [place] [phone]. Tadeo Smyth MCH (RBC) [Entitic mass] 29.1 pg Normal 26.7-34.0 [facility] Comment on above: Performed By: #### C BC ####[facility] Oxracvmelr6930 [place] [phone]. Tadeo Smyth MCHC (RBC) [Mass/Vol] 33.0 g/dL Normal 29.9-35.2 [facility] Comment on above: Performed By: #### C BC ####[facility] Ogxzguvoqe2118 [place] [phone]. Tadeo Smyth MCV (RBC) [Entitic vol] 88.3 fL Normal 81.0-99.0 [facility] Comment on above: Performed By: #### C BC ####[facility] Fwpwzawhnq3036 [place] [phone]. Tadeo Smyth MONO # 0.4 103/ul Normal 0.3-0.8 [facility] Comment on above: Performed By: #### C BC ####[facility] Brwrtomyvg4091 [place] [address]Dr. Tadeo Haja Monocytes/100 WBC (Bld) 7.1 % Normal 1.7-12.0 [facility] Comment on above: Performed By: #### C BC ####[facility] Cocoxzuggc[address] [place], [place] [address]Dr. Tadeo Smyth NEUT # 3.4 103/ul Normal 1.4-6.5 [facility] Comment on above: Performed By: #### C BC ####[facility] Hfpagwttks239[address] [place], [place] [address]Dr. Tadeo Smyth Neutrophils/100 WBC (Bld) 61.5 % Normal 43.0-75.0 [facility] Comment on above: Performed By: #### C BC ####[facility] Rvpdiyqpms7[address] [place], [place] [address]Dr. Tadeo Haja Platelet mean volume (Bld) [Entitic vol] 8.8 fL Critically low 9.5-13.5 [facility] Comment on above: Performed By: #### C BC ####[facility] Qxojazmhfp[address] [place], [place] [address]Dr. Tadeo Haja PLT 324 103/ul Normal 150-450 [facility] Comment on above: Performed By: #### C BC ####[facility] Jewifnxxsr[address] [place], [place] [id number]. Tadeo Haja RBC 4.12 106/ul Critically low 4.20-5.40 [facility] Comment on above: Performed By: #### C BC ####[facility] Rwrppbfyhp[address] [place], [place] [address]Dr. Tadeo Smyth WBC 5.5 103/ul Normal 4.0-11.0 [facility] Comment on above: Performed By: #### C BC ####[facility] Bhzdkklmdb2303 [place] [address]DrNeo Smyth PROF 14(COMP METB)on 022 Albumin [Mass/Vol] 3.1 g/dL Critically low 3.4-5.0 [facility] Comment on above: Performed By: #### C MP ####[facility] Bwlcevoizy2319 [place] [address]Dr. Tadeo Smyth Albumin/Globulin [Mass ratio] 0.9 {ratio} Normal [facility] Comment on above: Performed By: #### C MP ####[facility] Esjuxuqrpw[address] [place], [place] [address]Dr. Tadeo Smyth ALP [Catalytic activity/Vol] 119 U/L Critically high 46-116 [facility] Comment on above: Performed By: #### C MP ####[facility] Pagvrbodcj46[address] [place], [place] [address]Dr. Tadeo Smyth ALT [Catalytic activity/Vol] 17 U/L Normal 14-59 [facility] Comment on above: Performed By: #### C MP ####[facility] Grinotvyrn[address] [place], [place] [address]Dr. Tadeo Smyth Anion gap [Moles/Vol] 12.0 mmol/L Normal [facility] Comment on above: Performed By: #### C MP ####[facility] Frtahksrxd479[address] [place], [place] [address]Dr. Tadeo Smyth AST [Catalytic activity/Vol] 16 U/L Normal 15-37 [facility] Comment on above: Performed By: #### C MP ####[facility] Xwixvindwt3475[address] [place], [place] [address]Dr. Tadeo Smyth Bilirubin [Mass/Vol] 0.4 mg/dL Normal 0.2-1.0 [facility] Comment on above: Performed By: #### C MP ####[facility] Wdtbjztcaj[address] [place], [place] [address]Dr. Tadeo Smyth Calcium [Mass/Vol] 8.9 mg/dL Normal 8.5-10.1 [facility] Comment on above: Performed By: #### C MP ####[facility] Gjddncrtan7298 [place] [address]Dr. Tadeo Smyth Chloride [Moles/Vol] 107 mmol/L Normal 98-107 [facility] Comment on above: Performed By: #### C MP ####[facility] Ggdmeygekp4810 [place] [address]Dr. Tadeo Smyth CO2 [Moles/Vol] 26.9 mmol/L Normal 21.0-32.0 [facility] Comment on above: Performed By: #### C MP ####[facility] Iunqfwunph33[address] [place], [place] [address]Dr. Tadeo Smyth Creatinine [Mass/Vol] 0.82 mg/dL Normal 0.55-1.02 [facility] Comment on above: Performed By: #### C MP ####[facility] Prpgsqcppq500[address] [place], [place] [address]Dr. Tadeo Smyth EGFR-AF KYRGYZ >60 Normal >=60 [facility] Comment on above: Performed By: #### C MP ####[facility] Cjaklhlbnw[address] [place], [place] [address]Dr. Tadeo Smyth EGFR-NON AF KYRGYZ >60 Normal >=60 [facility] Comment on above: Performed By: #### C MP ####[facility] Vzkmxxfppw0620[address] [place], [place] [address]Dr. Tadeo Haja Globulin (S) [Mass/Vol] 3.5 g/dL Normal [facility] Comment on above: Performed By: #### C MP ####[facility] Iupcormixc8108 [place] [address]Dr. Margotnicole Haja Glucose [Mass/Vol] 104 mg/dL Normal 74-106 [facility] Comment on above: Performed By: #### C MP ####[facility] Tnricmqpej389[address] [place], [place] [address]Dr. Margotnicole Haja Potassium [Moles/Vol] 3.9 mmol/L Normal 3.5-5.1 [facility] Comment on above: Performed By: #### C MP ####[facility] Cihvkavgay209[address] [place], [place] [address]Dr. Tadeo Smyth Protein [Mass/Vol] 6.6 g/dL Normal 6.4-8.2 [facility] Comment on above: Performed By: #### C MP ####[facility] Onhyeksvoy9429[address] [place], [place] [address]Dr. Tadeo Haja Sodium [Moles/Vol] 142 mmol/L Normal 136-145 [facility] Comment on above: Performed By: #### C MP ####[facility] Vkbuzpbubj13[address] [place], [place] [address]Dr. Tadeo Haja Urea nitrogen [Mass/Vol] 5.0 mg/dL Critically low 7.0-18.0 [facility] Comment on above: Performed By: #### C MP ####[facility] Qakdevlabz268[address] [place], [place] [address]Dr. Tadeo Haja Urea nitrogen/Creatinine [Mass ratio] 6.1 mg/mg Normal [facility] Comment on above: Performed By: #### C MP ####[facility] Lffdacqvaq45[address] [place], [place] [address]Dr. Tadeo Haja CBC AUTO DIFFon 03-29-2022 BASO # 0.0 103/ul Normal 0.0-0.1 [facility] Comment on above: Performed By: #### C BC ####[facility] Caskbatkvo37[address] [place], [place] [address]Dr. Tadeo Smyth Basophils/100 WBC (Bld) 0.4 % Normal 0.2-2.0 [facility] Comment on above: Performed By: #### C BC ####[facility] Hjcvktsbfd8739[address] [place], [place] [address]Dr. Tadeo Smyth EO # 0.2 103/ul Normal 0.0-0.7 [facility] Comment on above: Performed By: #### C BC ####[facility] Stqfjuxqes[address] [place], [place] [address]Dr. Tadeo Smyth Eosinophils/100 WBC (Bld) 4.3 % Normal 0.9-7.0 [facility] Comment on above: Performed By: #### C BC ####[facility] Ojjpwaksjy838[address] [place], [place] [address]Dr. Tadeo Smyth Erythrocyte distribution width (RBC) [Ratio] 12.9 % Normal 11.0-15.0 [facility] Comment on above: Performed By: #### C BC ####[facility] Bwibeiioiz[address] [place], [place] [address]DrNeo Smyth Hematocrit (Bld) [Volume fraction] 33.8 % Critically low 36.0-48.0 [facility] Comment on above: Performed By: #### C BC ####[facility] Uyybkrnoyo464[address] [place], [place] [address]DrNeo Smyth Hemoglobin (Bld) [Mass/Vol] 11.1 g/dL Critically low 12.0-16.0 [facility] Comment on above: Performed By: #### C BC ####[facility] Sywimooejl[address] [place], [place] [address]Dr. Tadeo Smyth IG # 0.01 10e3/ul Normal 0.00-0.03 [facility] Comment on above: Performed By: #### C BC ####[facility] Xriupfnvsk[address] [place], [place] [address]DrNeo Smyth IG % 0.2 % Normal 0.0-0.5 [facility] Comment on above: Performed By: #### C BC ####[facility] Bwququzuue[address] [place], [place] [address]DrNeo Smyth LYMPH # 1.5 103/ul Normal 1.2-3.8 [facility] Comment on above: Performed By: #### C BC ####[facility] Hmdbznwzdv11[address] [place], [place] [address]DrNeo Smyth Lymphocytes/100 WBC (Bld) 29.9 % Normal 20.5-60.0 [facility] Comment on above: Performed By: #### C BC ####[facility] Yjkhslxpjn044[address] [place], [place] [address]DrNeo Smyth MANUAL DIFF REQ NO Normal [facility] Comment on above: Performed By: #### C BC ####[facility] Fzxvixpake0143 [place] [address]Dr. Tadeo Smyth MCH (RBC) [Entitic mass] 29.3 pg Normal 26.7-34.0 [facility] Comment on above: Performed By: #### C BC ####[facility] Dlwcoqowdp4245 [place] [address]Dr. Tadeo Smyth MCHC (RBC) [Mass/Vol] 32.8 g/dL Normal 29.9-35.2 [facility] Comment on above: Performed By: #### C BC ####[facility] Gpkebbmnmd0567[address] [place], [place] [address]DrNeo Smyth MCV (RBC) [Entitic vol] 89.2 fL Normal 81.0-99.0 [facility] Comment on above: Performed By: #### C BC ####[facility] Wtcdntalge[address] [place], [place] [address]DrNeo Smyth MONO # 0.4 103/ul Normal 0.3-0.8 [facility] Comment on above: Performed By: #### C BC ####[facility] Yvpkxlhvbt[address] [place], [place] [address]DrNeo Smyth Monocytes/100 WBC (Bld) 7.8 % Normal 1.7-12.0 [facility] Comment on above: Performed By: #### C BC ####[facility] Cwilaklnsf025[address] [place], [place] [address]DrNeo Smyth NEUT # 2.8 103/ul Normal 1.4-6.5 [facility] Comment on above: Performed By: #### C BC ####[facility] Iyvqbkncdg5[address] [place], [place] [address]DrNeo Smyth Neutrophils/100 WBC (Bld) 57.4 % Normal 43.0-75.0 [facility] Comment on above: Performed By: #### C BC ####[facility] Mnwvjjeaqx2[address] [place], [place] [address]DrNeo Smyth Platelet mean volume (Bld) [Entitic vol] 8.9 fL Critically low 9.5-13.5 [facility] Comment on above: Performed By: #### C BC ####[facility] Muuayzjmku4079 [place] [address]Dr. Tadeo Smyth PLT 314 103/ul Normal 150-450 [facility] Comment on above: Performed By: #### C BC ####[facility] Oihgmkvmag1312 [place] [address]Dr. Tadeo Smyth RBC 3.79 106/ul Critically low 4.20-5.40 [facility] Comment on above: Performed By: #### C BC ####[facility] Nxfzvcocvg6002 [place] [address]Dr. Tadeo Smyth WBC 4.9 103/ul Normal 4.0-11.0 [facility] Comment on above: Performed By: #### C BC ####[facility] Xwpkavpael[address] [place], [place] [address]DrNeo Smyth PROF 14(COMP METB)on 022 Albumin [Mass/Vol] 2.8 g/dL Critically low 3.4-5.0 [facility] Comment on above: Performed By: #### C MP ####[facility] Aaqoqnfbwf2378[address] [place], [place] [address]Dr. Tadeo Smyth Albumin/Globulin [Mass ratio] 0.8 {ratio} Normal [facility] Comment on above: Performed By: #### C MP ####[facility] Dpetbzintx5623[address] [place], [place] [address]Dr. Tadeo Smyth ALP [Catalytic activity/Vol] 117 U/L Critically high 46-116 [facility] Comment on above: Performed By: #### C MP ####[facility] Nvfgyaqyxs14[address] [place], [place] [address]DrNeo Smyth ALT [Catalytic activity/Vol] 13 U/L Critically low 14-59 [facility] Comment on above: Performed By: #### C MP ####[facility] Mumqyesofc159[address] [place], [place] [address]DrNeo Smyth Anion gap [Moles/Vol] 8.7 mmol/L Normal [facility] Comment on above: Performed By: #### C MP ####[facility] Cjsdctsony[address] [place], [place] [address]Dr. Tadeo Smyth AST [Catalytic activity/Vol] 12 U/L Critically low 15-37 [facility] Comment on above: Performed By: #### C MP ####[facility] Tgrjileyuu[address] [place], [place] [address]Dr. Tadeo Haja Bilirubin [Mass/Vol] 0.4 mg/dL Normal 0.2-1.0 [facility] Comment on above: Performed By: #### C MP ####[facility] Bkvkwaivzs489[address] [place], [place] [address]Dr. Tadeo Smyth Calcium [Mass/Vol] 8.5 mg/dL Normal 8.5-10.1 [facility] Comment on above: Performed By: #### C MP ####[facility] Zcwsmuouwt57[address] [place], [place] [address]Dr. Tadeo Smyth Chloride [Moles/Vol] 108 mmol/L Critically high 98-107 [facility] Comment on above: Performed By: #### C MP ####[facility] Svcmeycvib14[address] [place], [place] [address]Dr. Tadeo Haja CO2 [Moles/Vol] 28.0 mmol/L Normal 21.0-32.0 [facility] Comment on above: Performed By: #### C MP ####[facility] Zbejgpdpgh8[address] [place], [place] [address]Dr. Tadeo Smyth Creatinine [Mass/Vol] 0.74 mg/dL Normal 0.55-1.02 [facility] Comment on above: Performed By: #### C MP ####[facility] Pmanxhcfop780[address] [place], [place] [address]Dr. Tadeo Smyth EGFR-AF KYRGYZ >60 Normal >=60 [facility] Comment on above: Performed By: #### C MP ####[facility] Ddchgmulkj37[address] [place], [place] [address]Dr. Tadeo Smyth EGFR-NON AF KYRGYZ >60 Normal >=60 [facility] Comment on above: Performed By: #### C MP ####[facility] Qcklyjhonu2531 [place] [address]Dr. Tadeo Smyth Globulin (S) [Mass/Vol] 3.4 g/dL Normal [facility] Comment on above: Performed By: #### C MP ####[facility] Hrtpfxeyot7578 [place] [address]Dr. Tadeo Haja Glucose [Mass/Vol] 107 mg/dL Critically high 74-106 [facility] Comment on above: Performed By: #### C MP ####[facility] Qzcrsejdda5597 [place] [address]Dr. Tadeo Haja Potassium [Moles/Vol] 3.7 mmol/L Normal 3.5-5.1 [facility] Comment on above: Performed By: #### C MP ####[facility] Ocuhjqisig5258 [place] [address]Dr. Tadeo Haja Protein [Mass/Vol] 6.2 g/dL Critically low 6.4-8.2 [facility] Comment on above: Performed By: #### C MP ####[facility] Oojvbdezqc7705[address] [place], [place] [address]Dr. Tadeo Haja Sodium [Moles/Vol] 141 mmol/L Normal 136-145 [facility] Comment on above: Performed By: #### C MP ####[facility] Sflphycxii5704 [place] [address]Dr. Tadeo Haja Urea nitrogen [Mass/Vol] 7.0 mg/dL Normal 7.0-18.0 [facility] Comment on above: Performed By: #### C MP ####[facility] Zcapqxpvhv0335 [place] [address]Dr. Tadeo Haja Urea nitrogen/Creatinine [Mass ratio] 9.5 mg/mg Normal [facility] Comment on above: Performed By: #### C MP ####[facility] Stohqfccnt40[address] [place] [address]Dr. Margotnicole Haja XR KUB 1 VIEWon 03-29-2022 XR KUB 1 VIEW Normal [facility] CBC AUTO DIFFon 03-28-2022 BASO # 0.0 103/ul Normal 0.0-0.1 [facility] Comment on above: Performed By: #### C BC ####[facility] Gzopnevjsa[address] [place], [place] [address]Dr. Tadeo Smyth Basophils/100 WBC (Bld) 0.7 % Normal 0.2-2.0 [facility] Comment on above: Performed By: #### C BC ####[facility] Qldykitlam39[address] [place], [place] [address]Dr. Tadeo Smyth EO # 0.2 103/ul Normal 0.0-0.7 [facility] Comment on above: Performed By: #### C BC ####[facility] Mpymzvkrox248[address] [place], [place] [address]Dr. Tadeo Smyth Eosinophils/100 WBC (Bld) 3.3 % Normal 0.9-7.0 [facility] Comment on above: Performed By: #### C BC ####[facility] Ezaockbcho704[address] [place], [place] [address]Dr. Tadeo Smyth Erythrocyte distribution width (RBC) [Ratio] 13.2 % Normal 11.0-15.0 [facility] Comment on above: Performed By: #### C BC ####[facility] Lzcigjmiav[address] [place], [place] [address]Dr. Tadeo Smyth Hematocrit (Bld) [Volume fraction] 34.2 % Critically low 36.0-48.0 [facility] Comment on above: Performed By: #### C BC ####[facility] Viffkadhkj[address] [place], [place] [address]Dr. Margotnicole Smyth Hemoglobin (Bld) [Mass/Vol] 10.8 g/dL Critically low 12.0-16.0 [facility] Comment on above: Performed By: #### C BC ####[facility] Fawibjftfg[address] [place], [place] [address]Dr. Tadeo Smyth IG # 0.01 10e3/ul Normal 0.00-0.03 [facility] Comment on above: Performed By: #### C BC ####[facility] Gjmlijuhrl2091 [place] [address]Dr. Tadeo Smyth IG % 0.2 % Normal 0.0-0.5 [facility] Comment on above: Performed By: #### C BC ####[facility] Wtgjrpkval9688 [place] [address]Dr. Tadeo Smyth LYMPH # 1.3 103/ul Normal 1.2-3.8 [facility] Comment on above: Performed By: #### C BC ####[facility] Yjdmvlumar8935[address] [place], [place] [address]Dr. Tadeo Smyth Lymphocytes/100 WBC (Bld) 28.4 % Normal 20.5-60.0 [facility] Comment on above: Performed By: #### C BC ####[facility] Aaphvqdlue1701 [place] [address]Dr. Tadeo Smyth MANUAL DIFF REQ NO Normal [facility] Comment on above: Performed By: #### C BC ####[facility] Jdwjubfoyq4272 [place] [address]Dr. Tadeo Haja MCH (RBC) [Entitic mass] 28.3 pg Normal 26.7-34.0 [facility] Comment on above: Performed By: #### C BC ####[facility] K[address]kjtampt[address] [place], [place] [address]Dr. Tadeo Haja MCHC (RBC) [Mass/Vol] 31.6 g/dL Normal 29.9-35.2 [facility] Comment on above: Performed By: #### C BC ####[facility] Rjrqikteec[address] [place], [place] [address]Dr. Tadeo Smyth MCV (RBC) [Entitic vol] 89.5 fL Normal 81.0-99.0 [facility] Comment on above: Performed By: #### C BC ####[facility] Epypbxkyfd9[address] [place], [place] [address]Dr. Tadeo Smyth MONO # 0.3 103/ul Normal 0.3-0.8 [facility] Comment on above: Performed By: #### C BC ####[facility] Lwhtfwikhm99[address] [place], [place] [address]Dr. Tadeo Smyth Monocytes/100 WBC (Bld) 5.5 % Normal 1.7-12.0 [facility] Comment on above: Performed By: #### C BC ####[facility] Lukeygqevh6442 [place] [address]Dr. Tadeo Smyth NEUT # 2.8 103/ul Normal 1.4-6.5 [facility] Comment on above: Performed By: #### C BC ####[facility] Fvesgytdby5489 [place] [address]Dr. Tadeo Smyth Neutrophils/100 WBC (Bld) 61.9 % Normal 43.0-75.0 [facility] Comment on above: Performed By: #### C BC ####[facility] Jogvdnvvay0395 [place] [address]Dr. Tadeo Smyth Platelet mean volume (Bld) [Entitic vol] 9.1 fL Critically low 9.5-13.5 [facility] Comment on above: Performed By: #### C BC ####[facility] Lcrurngpjf2096 [place] [address]Dr. Tadeo Smyth PLT 327 103/ul Normal 150-450 [facility] Comment on above: Performed By: #### C BC ####[facility] Sjjpsjdutu[address] [place], [place] [address]Dr. Tadeo Smyth RBC 3.82 106/ul Critically low 4.20-5.40 [facility] Comment on above: Performed By: #### C BC ####[facility] Nobtefstdr[address] [place], [place] [address]Dr. Tadeo Smyth WBC 4.5 103/ul Normal 4.0-11.0 [facility] Comment on above: Performed By: #### C BC ####[facility] Pbckxwahmm[address] [place], [place] [address]Dr. Tadeo Smyth POINT OF CARE GLUCOSEon 07- Glucose [Mass/Vol] 84 mg/dL Normal 74-106 [facility] Comment on above: Performed By: #### P OCGLUC ####[facility] Xnhiiivexn[address] [place], [place] [address]Dr. Tadeo Smyth PROF 14(COMP METB)on 022 Albumin [Mass/Vol] 2.9 g/dL Critically low 3.4-5.0 Th [facility] Comment on above: Performed By: #### C MP ####[facility] Cpsgjzbqsg[address] [place] [address]Dr. Tadeo Smyth Albumin/Globulin [Mass ratio] 0.9 {ratio} Normal [facility] Comment on above: Performed By: #### C MP ####[facility] Xkyaxoacix[address] [place] [address]Dr. Tadeo Smyth ALP [Catalytic activity/Vol] 119 U/L Critically high 46-116 [facility] Comment on above: Performed By: #### C MP ####[facility] Wqgyxzwyrm[address] [place], [place] [address]Dr. Tadeo Smyth ALT [Catalytic activity/Vol] 15 U/L Normal 14-59 [facility] Comment on above: Performed By: #### C MP ####[facility] Byxowwjduc[address] [place], [place] [address]Dr. Tadeo Smyth Anion gap [Moles/Vol] 7.9 mmol/L Normal [facility] Comment on above: Performed By: #### C MP ####[facility] Hmronxqwxe332[address] [place], [place] [address]Dr. Tadeo Smyth AST [Catalytic activity/Vol] 11 U/L Critically low 15-37 [facility] Comment on above: Performed By: #### C MP ####[facility] Zvxxnnmajk[address] [place], [place] [address]Dr. Tadeo Smyth Bilirubin [Mass/Vol] 0.4 mg/dL Normal 0.2-1.0 [facility] Comment on above: Performed By: #### C MP ####[facility] Negqmttozx[address] [place], [place] [address]Dr. Tadeo Smyth Calcium [Mass/Vol] 8.7 mg/dL Normal 8.5-10.1 [facility] Comment on above: Performed By: #### C MP ####[facility] Oeictefwkq[address] [place] [address]Dr. Tadeo Smyth Chloride [Moles/Vol] 109 mmol/L Critically high 98-107 [facility] Comment on above: Performed By: #### C MP ####[facility] Uodjbahkmt[address] [place] [address]Dr. Tadeo Smyth CO2 [Moles/Vol] 27.9 mmol/L Normal 21.0-32.0 [facility] Comment on above: Performed By: #### C MP ####[facility] Qaczbbvqxi[address] [place], [place] [address]Dr. Tadeo Smyth Creatinine [Mass/Vol] 0.75 mg/dL Normal 0.55-1.02 [facility] Comment on above: Performed By: #### C MP ####[facility] Opwxewnoxy[address] [place], [place] [address]Dr. Tadeo Smyth EGFR-AF KYRGYZ >60 Normal >=60 [facility] Comment on above: Performed By: #### C MP ####[facility] Dwpcjgehnn97[address] [place], [place] [address]Dr. Tadeo Smyth EGFR-NON AF KYRGYZ >60 Normal >=60 [facility] Comment on above: Performed By: #### C MP ####[facility] Lwztxqipzv20[address] [place], [place] [address]Dr. Tadeo Smyth Globulin (S) [Mass/Vol] 3.3 g/dL Normal [facility] Comment on above: Performed By: #### C MP ####[facility] Cyysmplfxu56224[address] [place], [place] [address]Dr. Tadeo Smyth Glucose [Mass/Vol] 95 mg/dL Normal 74-106 [facility] Comment on above: Performed By: #### C MP ####[facility] Dgxutaudpb188[address] [place], [place] [address]Dr. Tadeo Smyth Potassium [Moles/Vol] 3.8 mmol/L Normal 3.5-5.1 [facility] Comment on above: Performed By: #### C MP ####[facility] Fseqdmmubt46[address] [place], [place] [address]Dr. Tadeo Haja Protein [Mass/Vol] 6.2 g/dL Critically low 6.4-8.2 Th e [facility] Comment on above: Performed By: #### C MP ####[facility] Mdsvuanklt45[address] [place] [address]Dr. Tadeo Smyth Sodium [Moles/Vol] 141 mmol/L Normal 136-145 [facility] Comment on above: Performed By: #### C MP ####[facility] Xznwswrqqr8[address] [place] [address]Dr. Tadeo Smyth Urea nitrogen [Mass/Vol] 8.0 mg/dL Normal 7.0-18.0 [facility] Comment on above: Performed By: #### C MP ####[facility] Hmonkcwbnv01[address] [place], [place] [address]Dr. Tadeo Smyth Urea nitrogen/Creatinine [Mass ratio] 10.7 mg/mg Normal [facility] Comment on above: Performed By: #### C MP ####[facility] Dbfblakkqr6978[address] [place], [place] [address]Dr. Tadeo Smyth UA (CLEAN/CATCH) DISK GRINDER/MICRO I F IND.on 03-28-2022 Bilirubin Ql (U) Negative Normal NEGATIVE [facility] Comment on above: Performed By: #### U MARE CHINEDURO ####[facility] Fcgpltbzdl[address] [place], [place] [address]Dr. Tadeo Smyth Clarity (U) SL CLOUDY Abnormal CLEAR [facility] Comment on above: Performed By: #### U MARE CHINEDURO ####[facility] Oasuukasro[address] [place], [place] [address]Dr. Tadeo Smyth Color (U) LT. YELLOW Normal YELLOW [facility] Comment on above: Performed By: #### U MARE ICRO ####[facility] Jgadjtvrgt1834[address] [place], [place] [address]Dr. Tadeo Smyth Glucose Ql (U) Negative Normal NEGATIVE [facility] Comment on above: Performed By: #### U MARE UMICRO ####[facility] Xwgvsfmqgf6327[address] [place], [place] [address]Dr. Tadeo Smyth Hemoglobin Ql (U) TRACE-INTACT Abnormal NEGATIVE [facility] Comment on above: Performed By: #### U ACSIND, UMICRO ####[facility] B[address]qilams[address] [place] [address]Dr. Tadeo Smyth Ketones Ql (U) TRACE Abnormal NEGATIVE [facility] Comment on above: Performed By: #### U ACSBLANE, UMICRO ####[facility] Eidkeypylr[address] [place] [address]Dr. Tadeo Smyth LEUKOCYTES Negative Normal NEGATIVE [facility] Comment on above: Performed By: #### U ACSBLANE, UMICRO ####[facility] Owdxygyqzs033[address] [place] [address]Dr. Tadeo Smyth Nitrite Ql (U) Negative Normal NEGATIVE [facility] Comment on above: Performed By: #### U ACSBLANE, ICRO ####[facility] Mmizscejzz[address] [place], [place] [address]Dr. Tadeo Smyth pH (U) 6.5 [pH] Normal 5-9 [facility] Comment on above: Performed By: #### U ACSBLANE, ICRO ####[facility] Lrhwmreoff5750[address] [place], [place] [address]Dr. Tadeo Smyth SPEC GRAVITY 1.015 Normal 1.005-<=1.0 25 [facility] Comment on above: Performed By: #### U ACSBLANE, ICRO ####[facility] Nbmqmzhuqb[address] [place], [place] [address]Dr. Tadeo Smyth UA PROTEIN Negative Normal NEGATIVE/ TRACE [facility] Comment on above: Performed By: #### U ACSBLANE, UMICRO ####[facility] Ctzrzzeels[address] [place], [place] [address]Dr. Tadeo Smyth UR MICRO IND INDICATED Normal [facility] Comment on above: Performed By: #### U ACSBLANE, ICRO ####[facility] Bdhsgnzves6800[address] [place], [place] [address]Dr. Tadeo Smyth Urobilinogen Qn (U) 0.2 {Benito'U}/dL Normal 0.2 - 1. 0 [facility] Comment on above: Performed By: #### U ACSBLANE UMICRO ####[facility] Cqufqgdfcw[address] [place] [address]Dr. Tadeo Smyth URINE MICROSCOPIC ONLYon BACTERIA MODERATE Abnormal NONE SEEN [facility] Comment on above: Performed By: #### U ACSBLANE UMICRO ####[facility] [address]namrdaej[address] [place] [address]Dr. Tadeo Smyth Bacteria identified Cx Nom (U) INDICATED Normal [facility] Comment on above: Performed By: #### U ACSBLANE, UMICRO ####[facility] Cbmpcxrzou03[address] [place] [address]Dr. Tadeo Smyth CAST NONE SEEN Normal NONE SEEN [facility] Comment on above: Performed By: #### U ACSBLANE UMICRO ####[facility] Lvegmnhjgc22[address] [place] [address]Dr. Tadeo Smyth Crystals LM Nom (Urine sed) NONE SEEN Normal NONE SEEN [facility] Comment on above: Performed By: #### U MARE UMICRO ####[facility] Rmbokcjzjl87[address] [place], [place] [address]Dr. Tadeo Smyth Epithelial cells LM Ql (Urine sed) RARE Normal NONE SEEN /RARE [facility] Comment on above: Performed By: #### U ACSBLANE UMICRO ####[facility] Mtxrvgebgw[address] [place] [address]Dr. Tadeo Smyth MUCOUS NONE SEEN Normal NONE SEEN [facility] Comment on above: Performed By: #### U MARE UMICRO ####[facility] Vxkqejfifc8[address] [place] [address]Dr. Tadeo Smyth RBC NONE SEEN Abnormal 0-2 [facility] Comment on above: Performed By: #### U ACSBLANE UMICRO ####[facility] Ofgwtcpydo[address] [place], [place] [address]Dr. Tadeo Smyth WBC 2-5 Abnormal NONE SEEN [facility] Comment on above: Performed By: #### U ACSBLANE UMICRO ####[facility] Rfmjvpvqgb11[address] [place], [place] [address]Dr. Tadeo Smyth XR ABD FLAT UP_PA Kasey 03-28 XR ABD FLAT UP_PA CH Normal [facility] CBC AUTO DIFFon 03-27-2022 BASO # 0.0 103/ul Normal 0.0-0.1 [facility] Comment on above: Performed By: #### C BC ####[facility] Zykcfdoqbj[address] [place] [id number]. Margotnicole Smyth Basophils/100 WBC (Bld) 0.5 % Normal 0.2-2.0 [facility] Comment on above: Performed By: #### C BC ####[facility] Gfohbktfbc60[address] [place] [address]Dr. Margotnicole Smyth EO # 0.2 103/ul Normal 0.0-0.7 [facility] Comment on above: Performed By: #### C BC ####[facility] Kxqxgyevjj04[address] [place], [place] [address]Dr. Margotnicole Smyth Eosinophils/100 WBC (Bld) 3.2 % Normal 0.9-7.0 [facility] Comment on above: Performed By: #### C BC ####[facility] Dsljcujpte107[address] [place], [place] [address]Dr. Tadeo Haja Erythrocyte distribution width (RBC) [Ratio] 13.1 % Normal 11.0-15.0 [facility] Comment on above: Performed By: #### C BC ####[facility] Lfwxnmscod[address] [place], [place] [address]Dr. Tadeo Haja Hematocrit (Bld) [Volume fraction] 34.8 % Critically low 36.0-48.0 [facility] Comment on above: Performed By: #### C BC ####[facility] Wzvrpngcmu16[address] [place] [phone] Margotnicole Smyth Hemoglobin (Bld) [Mass/Vol] 11.3 g/dL Critically low 12.0-16.0 [facility] Comment on above: Performed By: #### C BC ####[facility] Kknyqrpeaw[address] [place], [place] [address]Dr. Tadeo Smyth IG # 0.01 10e3/ul Normal 0.00-0.03 [facility] Comment on above: Performed By: #### C BC ####[facility] Lncmzhdbek[address] [place] [address]Dr. Margotnicole Smyth IG % 0.2 % Normal 0.0-0.5 [facility] Comment on above: Performed By: #### C BC ####[facility] Lajiurumlu87[address] [place], [place] [address]Dr. Margotnicole Smyth LYMPH # 1.6 103/ul Normal 1.2-3.8 [facility] Comment on above: Performed By: #### C BC ####[facility] Jjbpjnlemc718[address] [place], [place] [address]Dr. Margotnicole Smyth Lymphocytes/100 WBC (Bld) 29.1 % Normal 20.5-60.0 [facility] Comment on above: Performed By: #### C BC ####[facility] Azbfwzmpks7[address] [place], [place] [address]Dr. Tadeo Smyth MANUAL DIFF REQ NO Normal [facility] Comment on above: Performed By: #### C BC ####[facility] Bhfutsrkqg678[address] [place], [place] [address]Dr. Margotnicole Smyth MCH (RBC) [Entitic mass] 29.1 pg Normal 26.7-34.0 [facility] Comment on above: Performed By: #### C BC ####[facility] Lyxudrsupe39[address] [place], [place] [address]Dr. Margotnicole Smyth MCHC (RBC) [Mass/Vol] 32.5 g/dL Normal 29.9-35.2 [facility] Comment on above: Performed By: #### C BC ####[facility] Cbwiwxhhip[address] [place], [place] [address]DrNeo Margotnicole Smyth MCV (RBC) [Entitic vol] 89.7 fL Normal 81.0-99.0 [facility] Comment on above: Performed By: #### C BC ####[facility] Mzxsydifku7[address] [place], [place] [address]DrNeo Smyth MONO # 0.3 103/ul Normal 0.3-0.8 [facility] Comment on above: Performed By: #### C BC ####[facility] Upyvylvxpa10[address] [place] [id number]. Tadeo Smyth Monocytes/100 WBC (Bld) 5.7 % Normal 1.7-12.0 [facility] Comment on above: Performed By: #### C BC ####[facility] Ronaqrhauk15[address] [place] [phone]. Tadeo Smyth NEUT # 3.5 103/ul Normal 1.4-6.5 [facility] Comment on above: Performed By: #### C BC ####[facility] Egkuftejax3575 [place] [phone]. Tadeo Smyth Neutrophils/100 WBC (Bld) 61.3 % Normal 43.0-75.0 [facility] Comment on above: Performed By: #### C BC ####[facility] Hdwzazbuqn2146 [place] [phone]. Tadeo Smyth Platelet mean volume (Bld) [Entitic vol] 9.1 fL Critically low 9.5-13.5 [facility] Comment on above: Performed By: #### C BC ####[facility] Xkabkhojhs4202 [place] [phone]. Tadeo Smyth PLT 355 103/ul Normal 150-450 [facility] Comment on above: Performed By: #### C BC ####[facility] Hewrzewrlm4824 [place] [phone]. Tadeo Smyth RBC 3.88 106/ul Critically low 4.20-5.40 [facility] Comment on above: Performed By: #### C BC ####[facility] Kdikswlbto7248 [place] [phone]. Tadeo Smyth WBC 5.6 103/ul Normal 4.0-11.0 [facility] Comment on above: Performed By: #### C BC ####[facility] Fcyblcpbev[address] [place] [phone]. Tadeo Smyth CT ABD/PELV W CONon 03-27-[address] ABD/PELV W CON Normal [facility] CT ABD/PELVIS WO CONon 03-27 CT ABD/PELVIS WO CON Normal [facility] Covid-19 PCR (CVDTB)on 03-06 SARS-CoV-2 (COVID-19) RNA CHEN+probe Ql (Unsp spec) Not detected Normal NOT DETECTED [facility] Comment on above: Result Comment: [...] for this test is supported by the [place] of Health and Human Service's declaration that [...] be used). Performed By: #### C VDTBH ####[facility] Plwnagiruf4[address] [place], [place] [address]Dr. Tadeo Smyth ER URINE PROFILEon Bilirubin Ql (U) Negative Normal NEGATIVE [facility] Comment on above: Performed By: #### E SARAH BETHR, PREGU ####[facility] Zqxptueovj7[address] [place], [place] [address]Dr. Tadeo Smyth Clarity (U) CLEAR Normal CLEAR [facility] Comment on above: Performed By: #### E RUR, PREGU ####[facility] Xbbaijowmd235[address] [place], [place] [address]DrNeo Smyth Color (U) LT. YELLOW Normal YELLOW [facility] Comment on above: Performed By: #### E RUR, PREGU ####[facility] Npbpdkxjcu9[address] [place], [place] [address]Dr. Tadeo Smyth ERUAHD A micrscopic examina tion will be performed if indicated. Normal [facility] Comment on above: Performed By: #### E RUR, PREGU ####[facility] Wubbuxmyaf[address] [place], [place] [address]Dr. Tadeo Smyth Glucose Ql (U) Negative Normal NEGATIVE [facility] Comment on above: Performed By: #### E RUR, PREGU ####[facility] Extlanbtsu[address] [place], [place] [address]Dr. Tadeo Smyth Hemoglobin Ql (U) SMALL Abnormal NEGATIVE [facility] Comment on above: Performed By: #### E RUR, PREGU ####[facility] Hzyaohehrt23[address] [place], [place] [address]Dr. Tadeo Smyth Ketones Ql (U) TRACE Abnormal NEGATIVE [facility] Comment on above: Performed By: #### E RUR, PREGU ####[facility] Mksrormdkb500[address] [place], [place] [address]Dr. Tadeo Smyth LEUKOCYTES Negative Normal NEGATIVE [facility] Comment on above: Performed By: #### Matthew RUR, PREGU ####[facility] Mrktdezurd378[address] [place], [place] [address]Dr. Tadeo Smyth Nitrite Ql (U) Negative Normal NEGATIVE [facility] Comment on above: Performed By: #### Matthew RUR, PREGU ####[facility] Dgupqhjtvd34[address] [place], [place] [address]Dr. Tadeo Smyth pH (U) 6.0 [pH] Normal 5-9 [facility] Comment on above: Performed By: #### Matthew RUR, PREGU ####[facility] Cmlvuiiopg[address] [place], [place] [address]Dr. Tadeo Smyth SPEC GRAVITY >=1.030 Abnormal 1.005-<=1.0 25 [facility] Comment on above: Performed By: #### E RUR, PREGU ####[facility] Hgttcxtkze597[address] [place], [place] [address]Dr. Margotnicole Smyth UA PROTEIN Negative Normal NEGATIVE/ TRACE [facility] Comment on above: Performed By: #### Matthew RUR, PREGU ####[facility] Huyravieqh70[address] [place], [place] [address]Dr. Tadeo Smyth UR MICRO IND NOT INDICATED Normal [facility] Comment on above: Performed By: #### E RUR, PREGU ####[facility] Qdchkluzzt9339 [place] [address]Dr. Tadeo Smyth Urobilinogen Qn (U) 0.2 {Benito'U}/dL Normal 0.2 - 1. 0 [facility] Comment on above: Performed By: #### E RUR, PREGU ####[facility] Xrcymmjcjo9[address] [place] [address]Dr. Tadeo Smyth LIPASEon 03-27-2022 Lipase [Catalytic activity/Vol] 126.0 U/L Normal 73.0-393.0 [facility] Comment on above: Performed By: #### L IPA, CMP ####[facility] Ueqqajxqoa[address] [place], [place] [address]Dr. Tadeo Smyth URon 03-27-2022 , QUAL Negative Normal NEGATIVE [facility] Comment on above: Performed By: #### E RUR, PREGU ####[facility] Mkqdzxwmsm[address] [place], [place] [address]Dr. Tadeo Smyth PROF 14(COMP METB)on 022 Albumin [Mass/Vol] 3.6 g/dL Normal 3.4-5.0 [facility] Comment on above: Performed By: #### L IPA, CMP ####[facility] Xcltnpmgon22[address] [place], [place] [address]Dr. Tadeo Smyth Albumin/Globulin [Mass ratio] 1.1 {ratio} Normal [facility] Comment on above: Performed By: #### L IPA, CMP ####[facility] Ipdhsthqsg299[address] [place] [address]Dr. Tadeo Smyth ALP [Catalytic activity/Vol] 139 U/L Critically high 46-116 [facility] Comment on above: Performed By: #### L IPA, CMP ####[facility] Fjtujgmsvq5027 [place] [address]Dr. Tadeo Smyht ALT [Catalytic activity/Vol] 18 U/L Normal 14-59 [facility] Comment on above: Performed By: #### L IPA, CMP ####[facility] Fciruyhyck55[address] [place] [address]Dr. Tadeo Smyth Anion gap [Moles/Vol] 10.7 mmol/L Normal Th e [facility] Comment on above: Performed By: #### L IPA, CMP ####[facility] Zlcwwuqmnb7944 [place] [address]Dr. Tadeo Smyth AST [Catalytic activity/Vol] 11 U/L Critically low 15-37 [facility] Comment on above: Performed By: #### L IPA, CMP ####[facility] Jxevptwuoy[address] [place], [place] [address]Dr. Tadeo Smyth Bilirubin [Mass/Vol] 0.2 mg/dL Normal 0.2-1.0 [facility] Comment on above: Performed By: #### L IPA, CMP ####[facility] Pudheprehs[address] [place], [place] [address]Dr. Tadeo Smyth Calcium [Mass/Vol] 9.0 mg/dL Normal 8.5-10.1 [facility] Comment on above: Performed By: #### L IPA, CMP ####[facility] Rmhkiqqmgi3[address] [place], [place] [address]Dr. Tadeo Haja Chloride [Moles/Vol] 106 mmol/L Normal 98-107 [facility] Comment on above: Performed By: #### L IPA, CMP ####[facility] Losxierdyh[address] [place], [place] [address]Dr. Tadeo Smyth CO2 [Moles/Vol] 26.9 mmol/L Normal 21.0-32.0 [facility] Comment on above: Performed By: #### L IPA, CMP ####[facility] [address]zwyjweysc[address] [place], [place] [address]Dr. Tadeo Smyth Creatinine [Mass/Vol] 0.84 mg/dL Normal 0.55-1.02 [facility] Comment on above: Performed By: #### L IPA, CMP ####[facility] Zsmccuwlom[address] [place], [place] [address]Dr. Tadeo Haja EGFR-AF KYRGYZ >60 Normal >=60 [facility] Comment on above: Performed By: #### L IPA, CMP ####[facility] Hfwnkirmhl5110 [place] [id number]. Tadeo Smyth EGFR-NON AF KYRGYZ >60 Normal >=60 [facility] Comment on above: Performed By: #### L IPA, CMP ####[facility] Izdivzbrqz4044 [place] [phone]. Tadeo Haja Globulin (S) [Mass/Vol] 3.4 g/dL Normal [facility] Comment on above: Performed By: #### L IPA, CMP ####[facility] Unsmhdragx2078 [place] [phone]. Tadeo Haja Glucose [Mass/Vol] 96 mg/dL Normal 74-106 [facility] Comment on above: Performed By: #### L IPA, CMP ####[facility] Ckoeuuxlwz[address] [place], [place] [address]Dr. Tadeo Haja Potassium [Moles/Vol] 3.6 mmol/L Normal 3.5-5.1 [facility] Comment on above: Performed By: #### L IPA, CMP ####[facility] Synwibtbgi317[address] [place], [place] [address]Dr. Tadeo Haja Protein [Mass/Vol] 7.0 g/dL Normal 6.4-8.2 [facility] Comment on above: Performed By: #### L IPA, CMP ####[facility] Cvetxqapzf[address] [place], [place] [address]Dr. Tadeo Haja Sodium [Moles/Vol] 140 mmol/L Normal 136-145 [facility] Comment on above: Performed By: #### L IPA, CMP ####[facility] Vcgpcvgljb5247 [place] [phone]. Tadeo Haja Urea nitrogen [Mass/Vol] 23.0 mg/dL Critically high 7.0-18.0 [facility] Comment on above: Performed By: #### L IPA, CMP ####[facility] Bpskqezabx[address] [place], [place] [address]Dr. Tadeo Smyth Urea nitrogen/Creatinine [Mass ratio] 27.4 mg/mg Normal [facility] Comment on above: Performed By: #### L IPA, CMP ####[facility] Crkyoblvaf[address] [place], [place] [address]Dr. Tadeo Smyth GROUP A STREP CULTUREon S. pyogenes Ag Ql (Unsp spec) Normal [facility] [facility] Comment on above: Performed By: #### G RASTCX, SSCRN ####[facility] [address] [place], [place] [address]Dr. Tadeo Smyth AMYLASEon 02-02-2022 Amylase [Catalytic activity/Vol] 37 U/L Normal 25-115 [facility] Comment on above: Performed By: #### C MP, VIJI, LIPA ####[facility] [address] [place], [place] [address]Dr. Tadeo Smyth CBC AUTO DIFFon 02-02-2022 BASO # 0.0 103/ul Normal 0.0-0.1 [facility] Comment on above: Performed By: #### C BC ####[facility] Exaf[address]exus[address] [place], [place] [address]Dr. Tadeo Smyth Basophils/100 WBC (Bld) 0.2 % Normal 0.2-2.0 [facility] Comment on above: Performed By: #### C BC ####[facility] [address] [place], [place] [address]Dr. Tadeo Smyth EO # 0.0 103/ul Normal 0.0-0.7 [facility] Comment on above: Performed By: #### C BC ####[facility] X[address] [place], [place] [address]Dr. Tadeo Smyth Eosinophils/100 WBC (Bld) 0.2 % Critically low 0.9-7.0 The [facility] Comment on above: Performed By: #### C BC ####[facility] T[address]its[address] [place], [place] [address]Dr. Tadeo Smyth Erythrocyte distribution width (RBC) [Ratio] 13.4 % Normal 11.0-15.0 [facility] Comment on above: Performed By: #### C BC ####[facility] [address] [place] [address]Dr. Tadeo Smyth Hematocrit (Bld) [Volume fraction] 36.8 % Normal 36.0-48.0 [facility] Comment on above: Performed By: #### C BC ####[facility] [address]kdaxigdro[address] [place] [address]Dr. Tadeo Smyth Hemoglobin (Bld) [Mass/Vol] 11.6 g/dL Critically low 12.0-16.0 The [facility] Comment on above: Performed By: #### C BC ####[facility] Irionixxsa[address] [place] [address]Dr. Margotnicole Haja IG # 0.08 10e3/ul Critically high 0.00-0.03 [facility] Comment on above: Performed By: #### C BC ####[facility] Uurc[address]eei[address] [place] [address]Dr. Tadeo Smyth IG % 0.6 % Critically high 0.0-0.5 [facility] Comment on above: Performed By: #### C BC ####[facility] Kifyseqxgi[address] [place] [address]Dr. Margotnicole Smyth LYMPH # 0.9 103/ul Critically low 1.2-3.8 [facility] Comment on above: Performed By: #### C BC ####[facility] [address] [place] [address]Dr. Tadeo Smyth Lymphocytes/100 WBC (Bld) 6.9 % Critically low 20.5-60.0 [facility] Comment on above: Performed By: #### C BC ####[facility] [address] [place] [address]Dr. Margotnicole Smyth MANUAL DIFF REQ NO Normal [facility] Comment on above: Performed By: #### C BC ####[facility] [address] [place], [place] [address]Dr. Tadeo Smyth MCH (RBC) [Entitic mass] 28.9 pg Normal 26.7-34.0 [facility] Comment on above: Performed By: #### C BC ####[facility] [address] [place] [id number]. Tadeo Smyth MCHC (RBC) [Mass/Vol] 31.5 g/dL Normal 29.9-35.2 [facility] Comment on above: Performed By: #### C BC ####[facility] Rvekv[address] [place] [id number]. Tadeo Smyth MCV (RBC) [Entitic vol] 91.8 fL Normal 81.0-99.0 [facility] Comment on above: Performed By: #### C BC ####[facility] Wcpctiqadf[address] [place] [id number]. Tadeo Smyth MONO # 0.9 103/ul Critically high 0.3-0.8 [facility] Comment on above: Performed By: #### C BC ####[facility] Huicgkbwab35[address] [place] [id number]. Tadeo Smyth Monocytes/100 WBC (Bld) 6.9 % Normal 1.7-12.0 [facility] Comment on above: Performed By: #### C BC ####[facility] Dgmhplzdro6932 [place] [id number]. Tadeo Smyth NEUT # 11.6 103/ul Critically high 1.4-6.5 [facility] Comment on above: Performed By: #### C BC ####[facility] Mvjoetjthb45[address] [place] [id number]. Tadeo Smyth Neutrophils/100 WBC (Bld) 85.2 % Critically high 43.0-75.0 [facility] Comment on above: Performed By: #### C BC ####[facility] Moccnkkrce[address] [place] [phone]. Tadeo Smyth Platelet mean volume (Bld) [Entitic vol] 8.9 fL Critically low 9.5-13.5 [facility] Comment on above: Performed By: #### C BC ####[facility] Ztibnuxpnm[address] [place] [id number]. Tadeo Haja PLT 331 103/ul Normal 150-450 [facility] Comment on above: Performed By: #### C BC ####[facility] [address] [place], [place] [address]Yg. Tadeo Smyth RBC 4.01 106/ul Critically low 4.20-5.40 [facility] Comment on above: Performed By: #### C BC ####[facility] Isubmihxys[address] [place] [phone]. Tadeo Smyth WBC 13.7 103/ul Critically high 4.0-11.0 The [facility] Comment on above: Performed By: #### C BC ####[facility] Gbzvztorqx7036 [place] [phone]. Tadeo Smyth Cov[facility]-19 PCR ([facility]on [facility]05 SARS-CoV-2 (COVID-19) RNA CHEN+probe Ql (Unsp spec) Not detected Normal NOT DETECTED The [facility] Comment on above: Result Comment: [...] for this test is supported by the [place] of Health and Human Service's declaration that [...] be used). Performed By: #### C VDTBH ####[facility] [address]qwad[address] [place] [address]Dr. Tadeo Smyth LIPASEon 02-02-2022 Lipase [Catalytic activity/Vol] 33.0 U/L Critically low 73.0-393.0 [facility] Comment on above: Performed By: #### C MPVIJI, LIPA ####[facility] Luvnlcmfcw[address] [place] [phone]. Tadeo Smyth MONOon 02-02-2022 Monocytes (Bld) [#/Vol] Negative Normal NEGATIVE [facility] Comment on above: Performed By: #### M JESSICA ####[facility] Qhbvgiambd[address] [place] [address]Dr. Tadeo Smyth PROF 14(COMP METB)on 022 Albumin [Mass/Vol] 3.1 g/dL Critically low 3.4-5.0 [facility] Comment on above: Performed By: #### C MP, VIJI, LIPA ####[facility] Zzkofokvqz8[address] [place] [address]Dr. Tadeo Smyth Albumin/Globulin [Mass ratio] 0.9 {ratio} Normal [facility] Comment on above: Performed By: #### C MP, VIJI, LIPA ####[facility] Qqmuwrzbgi1038 [place] [address]Dr. Tadeo Smyth ALP [Catalytic activity/Vol] 131 U/L Critically high 46-116 [facility] Comment on above: Performed By: #### C MP, VIJI, LIPA ####[facility] Rotnprahyi[address] [place] [address]Dr. Tadeo Smyth ALT [Catalytic activity/Vol] 25 U/L Normal 14-59 [facility] Comment on above: Performed By: #### C MP, VIJI, LIPA ####[facility] Jfjskqposm90[address] [place] [address]Dr. Tadeo Smyth Anion gap [Moles/Vol] 10.0 mmol/L Normal [facility] Comment on above: Performed By: #### C MP, VIJI, LIPA ####[facility] Wjbbfsxybd4361 [place] [address]Dr. Tadeo Smyth AST [Catalytic activity/Vol] 19 U/L Normal 15-37 [facility] Comment on above: Performed By: #### C MP, VIJI, LIPA ####[facility] Yhdmhjvjfx4709 [place] [address]Dr. Tadeo Smyth Bilirubin [Mass/Vol] 0.6 mg/dL Normal 0.2-1.0 [facility] Comment on above: Performed By: #### C MP, VIJI, LIPA ####[facility] Nzjkysgsxa5[address] [place] [address]Dr. Tadeo Smyth Calcium [Mass/Vol] 8.2 mg/dL Critically low 8.5-10.1 Th e [facility] Comment on above: Performed By: #### C MP, VIJI, LIPA ####[facility] [address] [place], [place] [address]Dr. Tadeo Smyth Chloride [Moles/Vol] 106 mmol/L Normal 98-107 [facility] Comment on above: Performed By: #### C MP, VIJI, LIPA ####[facility] Mbkob[address] [place], [place] [address]Dr. Tadeo Smyth CO2 [Moles/Vol] 25.5 mmol/L Normal 21.0-32.0 [facility] Comment on above: Performed By: #### C MP, VIJI, LIPA ####[facility] Sz[address]ts[address] [place], [place] [address]Dr. Tadeo Smyth Creatinine [Mass/Vol] 0.78 mg/dL Normal 0.55-1.02 [facility] Comment on above: Performed By: #### C MP, VIJI, LIPA ####[facility] [address] [place], [place] [address]Dr. Tadeo Smyth EGFR-AF KYRGYZ >60 Normal >=60 [facility] Comment on above: Performed By: #### C MP, VIJI, LIPA ####[facility] [address] [place], [place] [address]Dr. Tadeo Smyth EGFR-NON AF KYRGYZ >60 Normal >=60 [facility] Comment on above: Performed By: #### C MP, VIJI, LIPA ####[facility] Z[address] [place], [place] [address]Dr. Tadeo Smyth Globulin (S) [Mass/Vol] 3.6 g/dL Normal [facility] Comment on above: Performed By: #### C MP, VIJI, LIPA ####[facility] V[address]twmp[address] [place], [place] [address]Dr. Tadeo Smyth Glucose [Mass/Vol] 110 mg/dL Critically high 74-106 [facility] Comment on above: Performed By: #### C VIJI GARCIA, LIPA ####[facility] Wbxegsjpgg5[address] [place] [address]Dr. Tadeo Smyth Potassium [Moles/Vol] 3.5 mmol/L Normal 3.5-5.1 [facility] Comment on above: Performed By: #### C JOSE VIJI, LIPA ####[facility] Lhrdedvypk[address] [place] [address]Dr. Tadeo Smyth Protein [Mass/Vol] 6.7 g/dL Normal 6.4-8.2 [facility] Comment on above: Performed By: #### C JOSE VIJI, LIPA ####[facility] Eiicztdmgo3624 [place] [address]Dr. Tadeo Smyth Sodium [Moles/Vol] 138 mmol/L Normal 136-145 [facility] Comment on above: Performed By: #### C JOSE VIJI, LIPA ####[facility] Srizktvvpe54[address] [place] [address]Dr. Tadeo Smyth Urea nitrogen [Mass/Vol] 11.0 mg/dL Normal 7.0-18.0 [facility] Comment on above: Performed By: #### C JOSE VIJI, LIPA ####[facility] [address]udpfo[address]x5[address] [place] [address]Dr. Tadeo Smyth Urea nitrogen/Creatinine [Mass ratio] 14.1 mg/mg Normal [facility] Comment on above: Performed By: #### C JOSE VIJI, LIPA ####[facility] Lmosiylchx[address] [place] [address]Dr. Tadeo Smyth STREPT SCREENon 02-02-2022 STREP SCREEN A Negative Normal NEGATIVE [facility] Comment on above: Performed By: #### G RASTCX, SSCRN ####[facility] Ynovuppbxk[address] [place] [address]Dr. Tadeo Smyth BASIC METABOLIC PANELon 08-05 Calcium [Mass/Vol] 8.4 mg/dL Low 8.6-10.3 [facility] Comment on above: Order Comment: No: D o not add to previous draw Performed By: #### 3 400, 26809 #### [facility] [address] [place] [address], [place] Chloride [Moles/Vol] 108 mmol/L High 98-107 [facility] Comment on above: Order Comment: No: D o not add to previous draw Performed By: #### 3 400, 67775 #### [facility] [address] [place] [address], [place] CO2 [Moles/Vol] 26 mmol/L Normal 21-31 [facility] Comment on above: Order Comment: No: D o not add to previous draw Performed By: #### 3 029, 85742 #### [facility] [address] [place] [address], [place] Creatinine [Mass/Vol] 0.79 mg/dL Normal 0.60-1.20 [facility] Comment on above: Order Comment: No: D o not add to previous draw Performed By: #### 3 591, 24069 #### [facility] [address] [place] [address], [place] GFR/1.73 sq M predicted among blacks MDRD (S/P/Bld) [Vol rate/Area] mL/min/{1.73_m2} Normal >60 [facility] Comment on above: Order Comment: No: D o not add to previous draw Performed By: #### 3 643, 65382 #### [facility] [address] [place] [address], [place] GFR/1.73 sq M predicted among non-blacks MDRD (S/P/Bld) [Vol rate/Area] mL/min/{1.73_m2} Normal >60 [facility] Comment on above: Order Comment: No: D o not add to previous draw Performed By: #### 3 480, 75521 #### [facility] [address] [place] [address], [place] Glucose [Mass/Vol] 98 mg/dL Normal 70-100 [facility] Comment on above: Order Comment: No: D o not add to previous draw Performed By: #### 3 261, 09556 #### [facility] [address] [place] [address], [place] Potassium [Moles/Vol] 3.5 mmol/L Normal 3.5-5.1 [facility] Comment on above: Order Comment: No: D o not add to previous draw Performed By: #### 3 478, 76566 #### [facility] [address] [place] [address], [place] Sodium [Moles/Vol] 139 mmol/L Normal 136-145 [facility] Comment on above: Order Comment: No: D o not add to previous draw Performed By: #### 3 429, 75462 #### [facility] [address] [place] [address], [place] Urea nitrogen [Mass/Vol] 11 mg/dL Normal 7-25 [facility] Comment on above: Order Comment: No: D o not add to previous draw Performed By: #### 3 855, 69871 #### [facility] [address] [place] [address], [place] BLOOD STOOL GUAIACon 019 BLD STOOL GUAIAC Negative Normal NEGATIVE [facility] Comment on above: Order Comment: No: D o not add to previous draw Performed By: #### 3 690, 68111 #### [facility] [address] [place] [address], [place] MAGNESIUM BLOODon 08-16-2019 Magnesium [Mass/Vol] 2.0 mg/dL Normal 1.9-2.7 [facility] Comment on above: Order Comment: No: D o not add to previous draw Performed By: #### 3 707, 88362 #### [facility] *URINE CULTUREon 08-15-2019 Bacteria identified Cx Nom (U) Clinical Report: (D) Specimen/Source: URINE/MIDSTREAM Collected: 08/15/2019 20:40 Status: Final Last Updated: 08/17/2019 08:05 ISO (Final) Escherichia coli >100,000 Cfu/Ml ISOLATE: Escherichia coli RHONDA (mcg/ml) AMP./SULBAC (AMS) 16/8 Intermediate AMPICILLIN (AM) >16 Resistant AZTREONAM (AZM) <=1 Susceptible CEFAZOLIN (CZ) 2 Susceptible CEFTRIAXONE (CONDUCTOR AND ENGINEER) <=0.5 Susceptible CIPROFLOXACIN (CIP) >2 Resistant ESBL (-/+) (ESBL) Negative GENTAMICIN (GM) <=1 Susceptible NITROFURANTOIN (FT) <=16 Susceptible PIP/TAZO (TZP) 4/4 Susceptible TOBRAMYCIN (TOB) 1 Susceptible TRIMETH/SULFA (SXT) >2/38 Resistant Normal [facility] Comment on above: Performed By: #### 3 6901, 95203 #### [facility] [address] BASIC METABOLIC PANELon 08-05 Calcium [Mass/Vol] 8.8 mg/dL Normal 8.6-10.3 [facility] Comment on above: Order Comment: No: D o not add to previous draw Performed By: #### 0 0071, 41478, 69461 #### [facility] [address] [place] [address], [facility] Chloride [Moles/Vol] 107 mmol/L Normal 98-107 [facility] Comment on above: Order Comment: No: D o not add to previous draw Performed By: #### 0 0071, 55347, 52795 #### [facility] [address] [place] [address], [facility] CO2 [Moles/Vol] 27 mmol/L Normal 21-31 [facility] Comment on above: Order Comment: No: D o not add to previous draw Performed By: #### 0 0071, 93104, 16371 #### [facility] [address] [place] [address], [facility] Creatinine [Mass/Vol] 0.99 mg/dL Normal 0.60-1.20 [facility] Comment on above: Order Comment: No: D o not add to previous draw Performed By: #### 0 0071, 37785, 60943 #### [facility] [address] [place] [address], [place] GFR/1.73 sq M predicted among blacks MDRD (S/P/Bld) [Vol rate/Area] mL/min/{1.73_m2} Normal >60 [facility] Comment on above: Order Comment: No: D o not add to previous draw Performed By: #### 0 0071, 77456, 20944 #### [facility] [address] [place] [address], [facility] GFR/1.73 sq M predicted among non-blacks MDRD (S/P/Bld) [Vol rate/Area] 59 ml/min/1.73sq m Abnormal >60 [facility] Comment on above: Order Comment: No: D o not add to previous draw Performed By: #### 0 0071, 09993, 50439 #### [facility] [address] [place] [address], [place] Glucose [Mass/Vol] 100 mg/dL Normal 70-100 [facility] Comment on above: Order Comment: No: D o not add to previous draw Performed By: #### 0 0071, 10087, 49751 #### [facility] [address] [place] [address], [place] Potassium [Moles/Vol] 3.6 mmol/L Normal 3.5-5.1 [facility] Comment on above: Order Comment: No: D o not add to previous draw Performed By: #### 0 0071, 91774, 44106 #### [facility] [address] [place] [address], [facility] Sodium [Moles/Vol] 140 mmol/L Normal 136-145 [facility] Comment on above: Order Comment: No: D o not add to previous draw Performed By: #### 0 0071, 27243, 90247 #### [facility] [address] [place] [address], [facility] Urea nitrogen [Mass/Vol] 9 mg/dL Normal 7-25 [facility] Comment on above: Order Comment: No: D o not add to previous draw Performed By: #### 0 0071, 36933, 22464 #### [facility] [address] [place] [address], [facility] LACTATE BLOODon 08-15-2019 Lactate [Moles/Vol] 0.8 mmol/L Normal 0.5-2.2 [facility] Comment on above: Order Comment: Yes: Add to Previous draw if able Performed By: #### 1 0054 #### [facility] [address] [place] [address], [facility] LMWH HEPARIN ASSAYon 019 LOW MOLECULAR WEIGHT HEPARIN 0.32 IU/mL Low 0.60-1.20 [facility] Comment on above: Order Comment: (draw 4 hours after enoxaparin dose) needed if patient > 150kg or BMI >50 not usually necessary but consider in renal dysfunction, hepaticdysfunction, , children, very underweight, or overweightNo: Do not add to previous drawPER RN TY, PATIENT RECEIVES DOSE AT 9 AM. TRY AGAIN AT 1300.PER RN VANESSA LOVENOX WAS GIVEN TO PATIENT AT 10AM SO [...] UFH and LMWH. Performed By: #### 3 0511, 59879 #### [facility] [address] [facility] [place] [address], [facility] MAGNESIUM BLOODon 08-15-2019 Magnesium [Mass/Vol] 1.7 mg/dL Low 1.9-2.7 [facility] Comment on above: Order Comment: No: D o not add to previous draw Performed By: #### 0 0071, 69802, 77846 #### [facility] [address] [place] [address], [facility] PHOSPHORUS BLOODon 9 Phosphate [Mass/Vol] 4.1 mg/dL Normal 2.5-5.0 [facility] Comment on above: Order Comment: No: D o not add to previous draw Performed By: #### 0 0071, 80914, 60741 #### [facility] [address] [place] [address], [facility] UGI WITH SMALL BOWELon 08-15 UGI WITH SMALL BOWEL [facility] Department of Radiology [address] [place] [id number] Patient Name: CONSTANTINO CARDOSO : 1970 Sex: F Age: Race: White Pt. Location: [id number] Patient Status: O Ordered Date: 08/15/2019 10:45:00 [...] ischemia. Electronically signed by:Orestes Condon. Transcribed by: [email or web address], User Resident: Electronically Signed by: ORESTES CONDON @ 08/15/2019 04:13 PM Normal [facility] Comment on above: Order Comment: R/O O bstruction URINALYSIS REFLEXon 08-15-20 19 Appearance (U) SL CLOUDY Abnormal CLEAR [facility] Comment on above: Order Comment: No: D o not add to previous drawCriteria for reflexing a culture was met. Urine Culture and sensitivitywill be performed. Performed By: #### 3 5557, 28739 #### [facility] [address] [place] [address], [facility] Bilirubin [Mass/Vol] Negative Normal NEGATIVE [facility] Comment on above: Order Comment: No: D o not add to previous drawCriteria for reflexing a culture was met. Urine Culture and sensitivitywill be performed. Performed By: #### 3 6900, 12665 #### [facility] [address] [place] [address], [facility] BLOOD SMALL Abnormal NEGATIVE [facility] Comment on above: Order Comment: No: D o not add to previous drawCriteria for reflexing a culture was met. Urine Culture and sensitivitywill be performed. Performed By: #### 3 690, 81677 #### [facility] [address] [place] [address], [facility] Color (U) YELLOW Normal YELLOW [facility] Comment on above: Order Comment: No: D o not add to previous drawCriteria for reflexing a culture was met. Urine Culture and sensitivitywill be performed. Performed By: #### 3 690, 46799 #### [facility] [address] [place] [id number], [facility] EPIS OCC Normal FEW,OCC,NON E SEEN [facility] Comment on above: Order Comment: No: D o not add to previous drawCriteria for reflexing a culture was met. Urine Culture and sensitivitywill be performed. Performed By: #### 3 970, 87192 #### [facility] [address] [facility] [place] [address], [facility] Glucose [Mass/Vol] Negative Normal NEGATIVE [facility] Comment on above: Order Comment: No: D o not add to previous drawCriteria for reflexing a culture was met. Urine Culture and sensitivitywill be performed. Performed By: #### 3 690, 75650 #### [facility] [address] [place] [address], [place] HYALINE CASTS 6-10 Abnormal NONE SEEN [facility] Comment on above: Order Comment: No: D o not add to previous drawCriteria for reflexing a culture was met. Urine Culture and sensitivitywill be performed. Performed By: #### 3 429, 25992 #### [facility] [address] [place] [address], [place] KETONE Negative Normal NEGATIVE [facility] Comment on above: Order Comment: No: D o not add to previous drawCriteria for reflexing a culture was met. Urine Culture and sensitivitywill be performed. Performed By: #### 3 2101, 51044 #### [facility] [address] [place] [address], [facility] LEUK JONN MODERATE Abnormal NEGATIVE [facility] Comment on above: Order Comment: No: D o not add to previous drawCriteria for reflexing a culture was met. Urine Culture and sensitivitywill be performed. Performed By: #### 3 6901, 19132 #### [facility] [address] [place] [address], [facility] MUCUS THREADS FEW Abnormal NONE SEEN [facility] Comment on above: Order Comment: No: D o not add to previous drawCriteria for reflexing a culture was met. Urine Culture and sensitivitywill be performed. Performed By: #### 3 094, 16713 #### [facility] [address] [place] [address], [facility] Nitrite Ql (U) Negative Normal NEGATIVE [facility] Comment on above: Order Comment: No: D o not add to previous drawCriteria for reflexing a culture was met. Urine Culture and sensitivitywill be performed. Performed By: #### 3 389, 76654 #### [facility] [address] [place] [address], [facility] pH (Bld) 5.0 Normal 5.0-8.0 [facility] Comment on above: Order Comment: No: D o not add to previous drawCriteria for reflexing a culture was met. Urine Culture and sensitivitywill be performed. Performed By: #### 3 2881, [id number] #### [facility] [address] [place] [address], [place] Protein (U) [Mass/Vol] Negative Normal NEGATIVE [facility] Comment on above: Order Comment: No: D o not add to previous drawCriteria for reflexing a culture was met. Urine Culture and sensitivitywill be performed. Performed By: #### 3 6901, [id number] #### [facility] 3000 [facility]. [address] RBC (U) [#/Vol] 6-10 Abnormal NONE SEEN [facility] Comment on above: Order Comment: No: D o not add to previous drawCriteria for reflexing a culture was met. Urine Culture and sensitivitywill be performed. Performed By: #### 3 6901, 28824 #### [facility] [address] SPEC GRAV 1.025 High 1.015-1.020 [facility] Comment on above: Order Comment: No: D o not add to previous drawCriteria for reflexing a culture was met. Urine Culture and sensitivitywill be performed. Performed By: #### 3 6901, [id number] #### [facility] 3000 [facility]. [address] WBC UA 51-100 Abnormal NONE SEEN [facility] Comment on above: Order Comment: No: D o not add to previous drawCriteria for reflexing a culture was met. Urine Culture and sensitivitywill be performed. Performed By: #### 3 6901, [id number] #### [facility] 3000 [facility]. [address] CBC COMPLETE BLOOD COUNTon 10-15-2018 Erythrocyte distribution width (RBC) [Ratio] 12.7 % Normal 11.5-15.0 [facility] Comment on above: Order Comment: No: D o not add to previous draw Performed By: #### 5 0608 #### [facility] 3000 [facility]. [address] Hematocrit (Bld) [Volume fraction] 31.2 % Low 36.0-45.0 [facility] Comment on above: Order Comment: No: D o not add to previous draw Performed By: #### 5 0608 #### [facility] 3000 [facility] [place] [address], [facility] Hemoglobin (Bld) [Mass/Vol] 9.8 g/dL Low 12.0-15.0 [facility] Comment on above: Order Comment: No: D o not add to previous draw Performed By: #### 5 0608 #### [facility] [address] [place] [id number], [facility] MCH (RBC) [Entitic mass] 29.1 pg Normal 27.0-33.0 [facility] Comment on above: Order Comment: No: D o not add to previous draw Performed By: #### 5 0608 #### [facility] [address] [facility] [address], [facility] MCHC (RBC) [Mass/Vol] 31.4 g/dL Low 32.0-35.0 [facility] Comment on above: Order Comment: No: D o not add to previous draw Performed By: #### 5 0608 #### [facility] [address] [facility] [address], [facility] MCV (RBC) [Entitic vol] 92.6 fL Normal 82.0-98.0 [facility] Comment on above: Order Comment: No: D o not add to previous draw Performed By: #### 5 0608 #### [facility] [address] [facility] [place] [address], [facility] Nucleated RBC/100 WBC (Bld) [Ratio] 0 % Normal 0-0 [facility] Comment on above: Order Comment: No: D o not add to previous draw Performed By: #### 5 0608 #### [facility] [address] [facility] [address], [facility] PLAT CNT 340 10*3/uL Normal 150-400 [facility] Comment on above: Order Comment: No: D o not add to previous draw Performed By: #### 5 0608 #### [facility] [address] [place] [address], [facility] RBC (Bld) [#/Vol] 3.37 10*6/uL Low 3.80-5.00 [facility] Comment on above: Order Comment: No: D o not add to previous draw Performed By: #### 5 0608 #### [facility] [address] [facility] [address], [facility] WBC (Bld) [#/Vol] 6.04 10*3/uL Normal 4.00-10.60 [facility] Comment on above: Order Comment: No: D o not add to previous draw Performed By: #### 5 0608 #### [facility] 3000 [facility]. [address] PROTHROMBIN TIMEon 9 INR Coag (PPP) [Relative time] 1.09 {INR} Normal 0.91-1.16 [facility] Comment on above: Order Comment: No: [...] 1995;[id number]. Performed By: #### 5 6101 #### [facility] [address] [facility] [address], [facility] PT Coag (PPP) [Time] 14.1 s Normal 12.3-14.8 [facility] Comment on above: Order Comment: No: D o not add to previous draw Result Comment: ALL RESULTS MUST BE INTERPRETED WITH RESPECT TO BLOOD DRAWING ARTIFACT OR DILUTION ERROR OF ANTICOAGULANT AT THE TIME OF SAMPLING. Performed By: #### 5 6101 #### [id number] [place] [address] LIVER 08-14-2019 [facility] Department of Radiology [address] [place] [id number] Patient Name: CONSTANTINO CARDOSO : 1970 Sex: F Age: Race: White Pt. Location: [id number] Patient Status: O Ordered Date: 08/13/2019 8:30:00 [...] cholecystectomy. Electronically signed by:Orestes Condon. Transcribed by: [email or web address], User Resident: Electronically Signed by: ORESTES CONDON @ 08/14/2019 02:09 PM Normal [facility] Comment on above: Order Comment: R/O S tones BASIC METABOLIC PANELon 12-0 Calcium [Mass/Vol] 9.4 mg/dL Normal 8.6-10.3 [facility] Comment on above: Order Comment: No: D o not add to previous draw Performed By: #### 3 156, 43343 #### [facility] [address] [place] [address], [place] Chloride [Moles/Vol] 105 mmol/L Normal 98-107 [facility] Comment on above: Order Comment: No: D o not add to previous draw Performed By: #### 3 993, 04606 #### [facility] [address] [place] [address], [place] CO2 [Moles/Vol] 26 mmol/L Normal 21-31 [facility] Comment on above: Order Comment: No: D o not add to previous draw Performed By: #### 3 051, 58763 #### [facility] [address] [place] [address], [place] Creatinine [Mass/Vol] 1.03 mg/dL Normal 0.60-1.20 [facility] Comment on above: Order Comment: No: D o not add to previous draw Performed By: #### 3 865, 44849 #### [facility] [address] [place] [address], [place] GFR/1.73 sq M predicted among blacks MDRD (S/P/Bld) [Vol rate/Area] mL/min/{1.73_m2} Normal >60 [facility] Comment on above: Order Comment: No: D o not add to previous draw Performed By: #### 3 676, 67527 #### [facility] [address] [place] [address], [place] GFR/1.73 sq M predicted among non-blacks MDRD (S/P/Bld) [Vol rate/Area] 57 ml/min/1.73sq m Abnormal >60 [facility] Comment on above: Order Comment: No: D o not add to previous draw Performed By: #### 3 085, 81119 #### [facility] [address] [place] [address], [place] Glucose [Mass/Vol] 96 mg/dL Normal 70-100 [facility] Comment on above: Order Comment: No: D o not add to previous draw Performed By: #### 3 217, 30939 #### [facility] [address] [place] [address], [place] Potassium [Moles/Vol] 4.1 mmol/L Normal 3.5-5.1 [facility] Comment on above: Order Comment: No: D o not add to previous draw Performed By: #### 3 386, 12509 #### [facility] [address] [place] [address], [place] Sodium [Moles/Vol] 138 mmol/L Normal 136-145 [facility] Comment on above: Order Comment: No: D o not add to previous draw Performed By: #### 3 205, 87445 #### [facility] [address] [place] [address], [place] Urea nitrogen [Mass/Vol] 16 mg/dL Normal 7-25 [facility] Comment on above: Order Comment: No: D o not add to previous draw Performed By: #### 3 937, 90269 #### [facility] [address] [place] [address], [place] CBC W/DIFFon 08-13-2019 ABS BASOPHILS 0.0 10*3/uL Normal 0.0-0.2 [facility] Comment on above: Order Comment: No: D o not add to previous draw Performed By: #### 5 0103 #### [facility] [address] [place] [address], [facility] ABS IMM GRANS 0.0 10*3/uL Normal 0.0-0.2 [facility] Comment on above: Order Comment: No: D o not add to previous draw Performed By: #### 5 0103 #### [facility] [address] [facility] [place] [address], [facility] ABS NEUTROPHILS 4.0 10*3/uL Normal 1.6-7.6 [facility] Comment on above: Order Comment: No: D o not add to previous draw Performed By: #### 5 0103 #### [facility] [address] [facility] [place] [address], [facility] Basophils/100 WBC (Bld) 0.5 % Normal 0.0-1.0 [facility] Comment on above: Order Comment: No: D o not add to previous draw Performed By: #### 5 0103 #### [facility] [address] [facility] [place] [address], [facility] Eosinophils (Bld) [#/Vol] 0.2 10*3/uL Normal 0.0-0.5 [facility] Comment on above: Order Comment: No: D o not add to previous draw Performed By: #### 5 0103 #### [facility] [address] [facility] [place] [address], [facility] Eosinophils/100 WBC (Bld) 3.3 % Normal 0.0-6.0 [facility] Comment on above: Order Comment: No: D o not add to previous draw Performed By: #### 5 0103 #### [facility] [address] [facility] [place] [id number], [facility] Erythrocyte distribution width (RBC) [Ratio] 12.7 % Normal 11.5-15.0 [facility] Comment on above: Order Comment: No: D o not add to previous draw Performed By: #### 5 0103 #### [facility] [address] [facility] [address], [facility] Hematocrit (Bld) [Volume fraction] 33.4 % Low 36.0-45.0 [facility] Comment on above: Order Comment: No: D o not add to previous draw Performed By: #### 5 0103 #### [facility] [address] [place] [address], [facility] Hemoglobin (Bld) [Mass/Vol] 10.5 g/dL Low 12.0-15.0 [facility] Comment on above: Order Comment: No: D o not add to previous draw Performed By: #### 5 0103 #### [facility] [address] [facility] [place] [address], [facility] IMMATURE GRANS 0.2 % Normal 0.0-1.0 [facility] Comment on above: Order Comment: No: D o not add to previous draw Performed By: #### 5 0103 #### [facility] [address] [facility] [place] [address], [facility] Lymphocytes (Bld) [#/Vol] 1.8 10*3/uL Normal 1.2-4.0 [facility] Comment on above: Order Comment: No: D o not add to previous draw Performed By: #### 5 0103 #### [facility] [address] [facility] [place] [address], [facility] Lymphocytes/100 WBC (Bld) 28.2 % Normal 20.0-45.0 [facility] Comment on above: Order Comment: No: D o not add to previous draw Performed By: #### 5 0103 #### [facility] [address] [place] [id number], [facility] MCH (RBC) [Entitic mass] 28.9 pg Normal 27.0-33.0 [facility] Comment on above: Order Comment: No: D o not add to previous draw Performed By: #### 5 0103 #### [facility] [address] [place] [address], [facility] MCHC (RBC) [Mass/Vol] 31.4 g/dL Low 32.0-35.0 [facility] Comment on above: Order Comment: No: D o not add to previous draw Performed By: #### 5 0103 #### [facility] [address] [place] [address], [facility] MCV (RBC) [Entitic vol] 92.0 fL Normal 82.0-98.0 [facility] Comment on above: Order Comment: No: D o not add to previous draw Performed By: #### 5 0103 #### [facility] [address] [facility] [place] [address], [facility] Monocytes (Bld) [#/Vol] 0.4 10*3/uL Normal 0.1-1.0 [facility] Comment on above: Order Comment: No: D o not add to previous draw Performed By: #### 5 0103 #### [facility] [address] [facility] [place] [address], [facility] MONOS 6.2 % Normal 5.0-12.0 [facility] Comment on above: Order Comment: No: D o not add to previous draw Performed By: #### 5 0103 #### [facility] [address] [facility] [place] [address], [facility] Neutrophils/100 WBC (Bld) 61.6 % Normal 40.0-72.0 [facility] Comment on above: Order Comment: No: D o not add to previous draw Performed By: #### 5 0103 #### [facility] [address] [place] [address], [facility] Nucleated RBC/100 WBC (Bld) [Ratio] 0 % Normal 0-0 [facility] Comment on above: Order Comment: No: D o not add to previous draw Performed By: #### 5 0103 #### [facility] [address] [place] [place] [address], [facility] PLAT CNT 382 10*3/uL Normal 150-400 [facility] Comment on above: Order Comment: No: D o not add to previous draw Performed By: #### 5 0103 #### [facility] [address] [place] [address], [facility] RBC (Bld) [#/Vol] 3.63 10*6/uL Low 3.80-5.00 [facility] Comment on above: Order Comment: No: D o not add to previous draw Performed By: #### 5 0103 #### [facility] [address] [place] [address], [facility] WBC (Bld) [#/Vol] 6.45 10*3/uL Normal 4.00-10.60 [facility] Comment on above: Order Comment: No: D o not add to previous draw Performed By: #### 5 0103 #### [facility] [address] [place] [id number], [facility] LIPASE BLOODon 08-13-2019 Lipase [Catalytic activity/Vol] 13 Units/L Normal 11-82 [facility] Comment on above: Performed By: #### 3 6901, 16988 #### [facility] [address] Vital Signs Date Time Vital Sign Value Performing Clinician Facility 07-22-2023 13:19-0500 Body height 170.[address] Work Phone: [facility] 07-22-2023 13:19-0500 Body weight 83.[address] Work Phone: [facility] 07-14-2023 11:40-0500 Diastolic blood pressure 95 mm[Hg] Marques Bradley MD Work Phone: [facility] 07-14-2023 11:40-0500 Heart rate 56 /min Marques Bradley MD Work Phone: [facility] 07-14-2023 11:40-0500 Respiratory rate 16 /min Marques Bradley MD Work Phone: [facility] 07-14-2023 11:40-0500 SaO2% (BldA) [Mass fraction] 97 % Marques Bradley MD Work Phone: [facility] 07-14-2023 11:40-0500 Systolic blood pressure 158 mm[Hg] Marques Bradley MD Work Phone: [facility] 07-14-2023 11:10-0500 Body temperature 97.2 [degF] Marques Bradley MD Work Phone: [facility] 07-14-2023 08:34-0500 Body height 170.2 cm Marques Bradley MD Work Phone: [facility] 07-14-2023 08:34-0500 Body weight 88 kg Marques Bradley MD Work Phone: [facility] 04-21-2023 09:30-0400 Body height 170.18 cm Renny Gan Other [employer] Other 04-21-2023 09:30-0400 Body mass index (BMI) [Ratio] 31.21 kg/m2 Renny Gan Other [employer] Other 04-21-2023 09:30-0400 Body weight 90.4 kg Renny Gan Other [employer] Other 04-21-2023 09:30-0400 Diastolic blood pressure 78 mm[Hg] Renny Gan Other [employer] Other 04-21-2023 09:30-0400 Systolic blood pressure 130 mm[Hg] Renny Gan Other [employer] Other 03-23-2023 07:33-0400 Diastolic blood pressure 80 mm[Hg] 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 Judi Youssef Work Phone: [facility] 03-23-2023 07:33-0400 Heart rate 81 /min 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 Judi Youssef Work Phone: [facility] 03-23-2023 07:33-0400 Respiratory rate 14 /min 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 Judi Youssef Work Phone: [facility] 03-23-2023 07:33-0400 SaO2% (BldA) [Mass fraction] 95 % 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 Judi Youssef Work Phone: [facility] 03-23-2023 07:33-0400 Systolic blood pressure 171 mm[Hg] 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 Judi Youssef Work Phone: [facility] 03-23-2023 06:20-0400 Body height 170.18 cm 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 Judi Youssef Work Phone: [facility] 03-23-2023 06:20-0400 Body temperature 97.4 [degF] 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 Judi Youssef Work Phone: [facility] 03-23-2023 06:20-0400 Body weight 90 kg 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 Judi Youssef Work Phone: [facility] 02-19-2023 00:53-0400 Body temperature 96.98 [degF] Kaylinn Dokken [facility] 02-19-2023 00:53-0400 Diastolic blood pressure 99 mm[Hg] Kaylinn Dokken [facility] 02-19-2023 00:53-0400 Heart rate 75 /min Kaylinn Dokken [facility] 02-19-2023 00:53-0400 Respiratory rate 16 /min Kaylinn Dokken [facility] 02-19-2023 00:53-0400 SaO2% (BldA) [Mass fraction] 98 % Zabrina Patton [facility] 02-19-2023 00:53-0400 Systolic blood pressure 153 mm[Hg] Zabrina Patton [facility] 02-15-2023 10:33-0400 Diastolic blood pressure 89 mm[Hg] 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 Judi Mikael Work Phone: [facility] 02-15-2023 10:33-0400 SaO2% (BldA) [Mass fraction] 100 % 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 Judi Mikael Work Phone: [facility] 02-15-2023 10:33-0400 Systolic blood pressure 149 mm[Hg] 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 Judi Mikael Work Phone: [facility] 02-15-2023 10:00-0400 Heart rate 83 /min 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 Judi Mikael Work Phone: [facility] 02-15-2023 10:00-0400 Respiratory rate 16 /min 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 Judi Mikael Work Phone: [facility] 02-15-2023 08:06-0400 Body height 170.18 cm 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 Judi Mikael Work Phone: [facility] 02-15-2023 08:06-0400 Body temperature 97.6 [degF] 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 Judi Mikael Work Phone: [facility] 02-15-2023 08:06-0400 Body weight 89.2 kg 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 Judi Mikael Work Phone: [facility] 10-26-2022 08:03-0500 Diastolic blood pressure 87 mm[Hg] 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 Judi Mikael Work Phone: [facility] 10-26-2022 08:03-0500 Heart rate 70 /min 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 Judi Mikael Work Phone: [facility] 10-26-2022 08:03-0500 Respiratory rate 18 /min 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 Judi Ugaldemer Work Phone: [facility] 10-26-2022 08:03-0500 SaO2% (BldA) [Mass fraction] 98 % 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 Judi Ugaldemer Work Phone: [facility] 10-26-2022 08:03-0500 Systolic blood pressure 161 mm[Hg] 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 Judijose manuel Ugaldemer Work Phone: [facility] 10-26-2022 06:17-0500 Body height 170.18 cm 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 Judi Ugaldemer Work Phone: [facility] 10-26-2022 06:17-0500 Body temperature 97.2 [degF] 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 Judi Ugaldemer Work Phone: [facility] 10-26-2022 06:17-0500 Body weight 88.9 kg 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 Judi Ugaldemer Work Phone: [facility] 07-22-2022 14:34-0500 Diastolic blood pressure 83 mm[Hg] Ospina SALAM [facility] 07-22-2022 14:34-0500 Mean blood pressure 101 mm[Hg] Ospina SALAM [facility] 07-22-2022 14:34-0500 Systolic blood pressure 136 mm[Hg] Ospina SALAM [facility] 07-22-2022 14:30-0500 Blood Pressure Location Ospina SALAM [facility] 07-22-2022 14:30-0500 Diastolic blood pressure 89 mm[Hg] Ospina SALAM [facility] 07-22-2022 14:30-0500 Heart rate 62 /min Ospina SALAM [facility] 07-22-2022 14:30-0500 Respiratory rate 16 /min Ospina SALAM [facility] 07-22-2022 14:30-0500 SaO2% (BldA) [Mass fraction] 98 % Ospina SALAM [facility] 07-22-2022 14:30-0500 Systolic blood pressure 141 mm[Hg] Ospina SALAM [facility] 04-14-2022 14:50-0400 Blood Pressure Location Moniquejuan luis ReddyJimmy [facility] 04-14-2022 14:50-0400 Body temperature 97.16 [degF] Moniquejuan luis ReddyJimmy [facility] 04-14-2022 14:50-0400 Diastolic blood pressure 86 mm[Hg] Monique Jimmy [facility] 04-14-2022 14:50-0400 Heart rate 72 /min Monique Jimmy [facility] 04-14-2022 14:50-0400 SaO2% (BldA) [Mass fraction] 97 % Monique Jimmy [facility] 04-14-2022 14:50-0400 Systolic blood pressure 131 mm[Hg] Monique Jimmy [facility] 01-28-2022 13:36-0400 Blood Pressure Location Monique Jimmy [facility] 01-28-2022 13:36-0400 Body temperature 97.52 [degF] Monique Marquez [facility] 01-28-2022 13:36-0400 Diastolic blood pressure 85 mm[Hg] Monique Marquez [facility] 01-28-2022 13:36-0400 Heart rate 73 /min Monique Marquez [facility] 01-28-2022 13:36-0400 SaO2% (BldA) [Mass fraction] 96 % Monique Marquez [facility] 01-28-2022 13:36-0400 Systolic blood pressure 122 mm[Hg] Monique Marqeuz [facility] 01-11-2022 10:15-0400 Blood Pressure Location Ospina SALAM [facility] 01-11-2022 10:15-0400 Diastolic blood pressure 106 mm[Hg] Ospina SALAM [facility] 01-11-2022 10:15-0400 Heart rate 70 /min Ospina SALAM [facility] 01-11-2022 10:15-0400 Respiratory rate 28 /min Ospina SALAM [facility] 01-11-2022 10:15-0400 SaO2% (BldA) [Mass fraction] 99 % Ospina SALAM [facility] 01-11-2022 10:15-0400 Systolic blood pressure 137 mm[Hg] Ospina SALAM [facility] 01-11-2022 10:05-0400 Blood Pressure Location Ospina SALAM [facility] 01-11-2022 10:05-0400 Diastolic blood pressure 74 mm[Hg] Ospina SALAM [facility] 01-11-2022 10:05-0400 Heart rate 67 /min Ospina SALAM [facility] 01-11-2022 10:05-0400 Respiratory rate 14 /min Ospina SALAM [facility] 01-11-2022 10:05-0400 SaO2% (BldA) [Mass fraction] 97 % Ospina SALAM [facility] 01-11-2022 10:05-0400 Systolic blood pressure 128 mm[Hg] Ospina SALAM [facility] 01-11-2022 10:00-0400 Blood Pressure Location Ospina SALAM [facility] 01-11-2022 10:00-0400 Diastolic blood pressure 79 mm[Hg] Ospina SALAM [facility] 01-11-2022 10:00-0400 Heart rate 66 /min Ospina SALAM [facility] 01-11-2022 10:00-0400 Respiratory rate 16 /min Ospina SALAM [facility] 01-11-2022 10:00-0400 SaO2% (BldA) [Mass fraction] 98 % Ospina SALAM [facility] 01-11-2022 10:00-0400 Systolic blood pressure 134 mm[Hg] irisnoteAM [facility] 01-11-2022 09:50-0400 Body temperature 97.52 [degF] Ospina Lola PirindolaAM [facility] 01-11-2022 09:45-0400 Respiratory rate 15 /min irisnoteAM [facility] 01-11-2022 09:18-0400 Body temperature 97.34 [degF] Ospina Lola PirindolaAM [facility] 01-11-2022 09:18-0400 Respiratory rate 20 /min Palkion [facility] Encounters Encounter Date Encounter Type Care Provider Facility Start: 12-01-2023 ambulatory [facility] Ambulatory [facility] Start: 08-25-2023 End: 08-25-2023 ambulatory [facility] Facility:[facility] Start: 07-29-2023 Orders Only Evelyn Black RN Gen [facility] Comment on above: Gastroparesis (Prima ry Dx) Start: 07-22-2023 End: 07-22-2023 ambulatory MARQUES BRADLEY Facility:[facility] Start: 07-22-2023 Telephone encounter Evelyn Black RN General Surgery Start: 07-22-2023 End: 07-22-2023 Nutrition therapy Melissa Montalvo RD Work Phone: General Surgery Comment on above: Gastroparesis (Prima ry Dx); Malnutrition of moderate degree (HCC); Gastro-esophageal reflux disease without esophagitis; Overweight (BMI 25.0-29.9); Dietary counseling and surveillance Start: 07-22-2023 End: 07-22-2023 Telemedicine consultation with patient Melissa Montalvo RD Work Phone: [facility] Start: 07-14-2023 End: 07-14-2023 ambulatory MARQUES BRADLEY Facility:[facility] Start: 07-14-2023 End: 07-14-2023 Subsequent hospital visit by physician Marques Bradley MD Work Phone: Gastroenterology Comment on above: Dysphagia, unspecifi ed type [R13.10] Start: 07-13-2023 End: 07-13-2023 ambulatory MARQUES BRADLEY Facility:[facility] Start: 06-06-2023 End: 06-07-2023 ambulatory Samuel Estrella Facility:[facility] Start: 05-27-2023 Telephone encounter Evelyn Black RN General Surgery Comment on above: Results Start: 05-26-2023 End: 05-26-2023 ambulatory MARQUES BRADLEY Facility:[facility] Start: 05-25-2023 End: 05-25-2023 ambulatory JOEL ALEJANDRA Facility:[facility] Start: 05-25-2023 End: 05-25-2023 Nursing evaluation of patient and report Nurse Gi Lab 2 Work Phone: Gastroenterology Comment on above: Nausea Start: 05-16-2023 Orders Only Evelyn Black RN Gen eral Surgery Comment on above: Nausea (Primary Dx); Dysphagia, unspecified type Start: 05-06-2023 End: 05-07-2023 ambulatory MARQUES BRADLEY Facility:[facility] Start: 05-02-2023 Telephone encounter Evelyn Black RN General Surgery Start: 04-26-2023 Telephone encounter Evelyn Black RN General Surgery Start: 04-21-2023 End: 04-21-2023 ambulatory Renny Gan Other [employer] Other Start: 04-21-2023 Office outpatient vi sit 15 minutes Renny Gan [facility] Gastroenterology Start: 04-18-2023 Telephone encounter Evelyn Black RN General Surgery 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 Start: 04-07-2023 Telephone encounter Guillermo Martinez DO Work Phone: Gastroenterology Comment on above: Appointment Start: 04-05-2023 End: 04-05-2023 ambulatory Imad Asaad Other [employer] Other Start: 04-05-2023 Telephone encounter Imad Asaad [facility] Start: 03-29-2023 ambulatory Facility:U Start: 03-26-2023 ambulatory Facility:[id number] Start: 03-26-2023 End: 03-31-2023 Evaluation and management of inpatient Renny Gan Facility:[facility] Start: 03-26-2023 ambulatory Facility:[id number] Start: 03-24-2023 End: 03-24-2023 ambulatory Imad Asaad Other [employer] Other Start: 03-24-2023 Telephone encounter Imad Asaad [facility] Start: 03-23-2023 End: 03-23-2023 Emergency department patient visit Judi Youssef Facility:[facility] Start: 03-23-2023 End: 03-23-2023 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 Judi Youssef Work Phone: [facility] Work Phone: Start: 03-22-2023 End: 03-22-2023 ambulatory Imad Asaad Other [employer] Other Start: 03-22-2023 Telephone encounter Imad Asaad [facility] Start: 03-09-2023 End: 03-09-2023 ambulatory Imad Asaad Other [employer] Other Start: 03-09-2023 Telephone encounter Imad Asaad [facility] Start: 03-01-2023 End: 03-01-2023 ambulatory Imad Asaad Other [employer] Other Start: 03-01-2023 Telephone encounter Imad Asaad [facility] Start: 02-19-2023 End: 02-19-2023 Emergency department patient visit Zabrina Patton Facility:[facility] Start: 02-19-2023 End: 02-19-2023 Emergency department patient visit Zabrina Patton [facility] Start: 02-15-2023 End: 02-15-2023 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 Judi Youssef Work Phone: [facility] Work Phone: Start: 11-30-2022 End: 12-01-2022 ambulatory JUDIJOSE MANUEL YOUSSEF Facility:[facility] Start: 11-27-2022 End: 11-28-2022 ambulatory JUDIJOSE MANUEL YOUSSEF Facility:[facility] Start: 11-26-2022 End: 11-26-2022 ambulatory Imad Asaad Other [employer] Other Start: 11-26-2022 Telephone encounter Imad Asaad [facility] Gastroenterology Start: 11-04-2022 End: 11-04-2022 ambulatory Judi Youssef Facility:[facility] Start: 11-04-2022 End: 11-04-2022 Admission to same day surgery center 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 Judi Youssef Work Phone: [facility]CT Scan [facility] [place] Work Phone: Start: 11-04-2022 End: 11-04-2022 ambulatory 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 Judi Youssef Work Phone: [facility] Work Phone: Start: 11-01-2022 End: 11-02-2022 ambulatory JUDI YOUSSEF Facility:[facility] Start: 10-26-2022 End: 10-26-2022 Emergency department patient visit Judijose manuel Youssef Facility:[facility] Start: 10-26-2022 End: 10-26-2022 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 Facility:[facility] Start: 09-14-2022 End: 09-14-2022 ambulatory EUN WILSON . Facility:[facility] Start: 09-07-2022 End: 09-07-2022 ambulatory Imad Asaad Other [facility] Other Start: 09-07-2022 Telephone encounter Imad Asaad [facility] [employer] Start: 09-06-2022 End: 09-07-2022 ambulatory JUDI YOUSSEF Facility:[facility] Start: 08-20-2022 End: 08-20-2022 ambulatory BALTAZAR GEORGES . Facility:[facility] Start: 08-17-2022 End: 08-18-2022 ambulatory JUDI YOUSSEF Facility:[facility] Start: 08-11-2022 End: 08-12-2022 ambulatory JUDI YOUSSEF Facility:[facility] Start: 08-08-2022 End: 08-08-2022 ambulatory KATHRIN VANCE Facility:[facility] Start: 07-22-2022 End: 07-23-2022 ambulatory [facility] Facility:[facility] Start: 07-22-2022 End: 07-22-2022 Patient encounter procedure [facility] Start: 07-21-2022 End: 07-21-[address] NORA WINN Facility:[facility] Start: 07-15-2022 ambulatory JUDI YOUSSEF Facility: [facility] Start: 07-12-2022 Encounter for genera l adult medical examination without abnormal findings JUDI YOUSSEF [facility] Start: 07-08-2022 End: 07-09-2022 ambulatory JUDI [...] End: 04-29-2022 Lab Drop off Anai REAGAN [facility] Start: 04-14-2022 End: 04-14-2022 Patient encounter procedure Monique Marquez [facility] Start: 03-27-2022 End: 03-30-2022 Evaluation and management of inpatient SHAIKH Juan Luis DAVIS Facility:[facility] Start: 03-01-2022 End: 03-01-2022 Patient encounter procedure Monique Reddymetz [facility] Start: 02-02-2022 End: 02-02-2022 ambulatory BALTAZAR GEORGES . Facility:[facility] Start: 01-28-2022 End: 01-28-2022 Patient encounter procedure Monique Marquez [facility] Start: 01-11-2022 End: 01-11-2022 Patient encounter procedure Anai REAGAN [facility] Start: 12-24-2021 End: 12-24-2021 Patient encounter procedure JHOANA MELGOZA [facility] Start: 08-13-2019 End: 08-16-2019 Evaluation and management of inpatient LEONA MORTENSEN Facility:[facility] Procedures Date Procedure Procedure Detail Performing Clinician Start: 07-14-2023 Esophagoscp rig transoral hypopharynx crv esoph Evelyn Black RN Start: 05-25-2023 Esophageal motility study w/interp&rpt Evelyn Black RN Start: 03-23-2023 Computed tomography of abdomen and pelvis with contrast 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 Mortensen in [place]. Hernia repair JHOANA MELGOZA Hysterectomy JHOANA MELGOZA Plan of Treatment Date Care Activity Detail Author Start: 05-06-2023 Covid-19 Vaccine ( season) Covid-19 Vaccine () [facility] Start: 05-06-2023 Influenza vaccination [facility] Start: 09-05-2022 DEPRESSION ASSESSMENT DEPRESSION ASS ESSMENT [facility] Start: 01-01-2022 COVID-19 VACCINE (4 - Pfizer series) COVID-19 VACCINE (4 - Pfizer series) [facility] Start: 2020 SHINGRIX VACCINE (1 of 2) SHINGRIX VACCINE (1 of 2) [facility] Start: 2015 COLOGUARD (FIT-DNA) COLOGUARD (FIT-D NA) [facility] Start: 2015 Colonoscopy COLONOSCOPY [facility] Start: 2015 COLORECTAL CANCER SCREENING COLORECTAL CANCER SCREENING [facility] Start: [address] COLONOGRAPHY [facility] Start: 2015 DIABETES SCREEN DIABETES SCREEN [facility] Start: 2015 Diabetes Screening Diabetes Screenin g [facility] Start: 2015 FECAL OCCULT BLOOD FECAL OCCULT BLOO D [facility] Start: 2015 Lipid 1996 panel - S cristine or Plasma Lipid Screening [facility] Start: 2015 LIPID SCREEN LIPID SCREEN [facility] Start: 2015 SIGMOIDOSCOPY SIGMOIDOSCOPY [facility] Start: 2010 Mammography [facility] Start: 2000 HPV TESTING HPV TESTING [facility] Start: 1991 PAP TESTING PAP TESTING [facility] Start: 1989 Urine microalbumin profile [facility] Start: 1988 HEPATITIS C SCREENING HEPATITIS C SC REENING [facility] Start: 1988 HIV SCREENING HIV SCREENING [facility] Start: 1970 COVID-19 VACCINE (#1) COVID-19 VACCI NE (#1) [facility] Start: 1970 HEPATITIS B (1 of 3 - 3-dose series) HEPATITIS B (1 of 3 - 3-dose series) [facility] Start: 1970 Hepatitis B Vaccine (1 of 3 - 3-dose series) Hepatitis B Vaccine (1 of 3 - 3-dose series) [facility] End: 07-29-2024 EGD - THERAPEUTIC, EUS, OR TUBE INTERVENTIONS EGD - THERAPEUTIC, EUS, OR TUBE INTERVENTIONS Endoscopy Routine Gastroparesis 1 Occurrences starting 07/29/2023 until 07/29/2024 [facility] Work Phone: Comment on above: 1 Occurrences starti ng 07/29/2023 until 07/29/2024 End: 05-16-2024 Esophageal motility study w/interp&rpt MANOMETRY ESOPHAGEAL Endoscopy Routine Nausea 1 Occurrences starting 05/16/2023 until 05/16/2024 [facility] Work Phone: Comment on above: 1 Occurrences starti ng 05/16/2023 until 05/16/2024 Esophageal motility study w/interp&rpt MANOMETRY ESOPHAGEAL Endoscopy Routine Nausea 05/25/2023 [facility] Work Phone: End: 06-14-2024 Gastric emptying imaging study NM GASTRIC EMPTYING SOLID Radiology Routine Nausea 1 Occurrences starting 05/16/2023 until 06/14/2024 [facility] Work Phone: Comment on above: 1 Occurrences starti ng 05/16/2023 until 06/14/2024 Patient Education [facility] Work Phone: Patient referral [facility] Work Phone: SURGICAL PATHOLOGY [facility] Work Phone: Comment on above: Release Upon Orderin g for 1 Occurrences starting 07/14/2023, 1 completed [facility] Immunizations Immunization Date Immunization Notes Care Provider Jamal kelly 06-09-2022 influenza virus vaccine, unspecified formulation Nurse 2 Work Phone: [facility] 03-18-2022 SARS-CoV-2 mRNA (knlzyghnhkz-fglz-wuk jett) vaccine Anai REAGAN [facility] 11-06-2021 SARS-CoV-2 (COVID-19 ) mRNA BNT-162b2 vax Anai REAGAN [facility] 05-06-2021 influenza virus vaccine, unspecified formulation JHOANA MELGOZA [facility] 02-26-2021 SARS-CoV-2 (COVID-19 ) mRNA BNT-162b2 vax JHOANA MELGOZA [facility] 02-05-2021 SARS-CoV-2 (COVID-19 ) mRNA BNT-162b2 vax Anai REAGAN [facility] Comment on above: Result Comment: 2021: [id number] NEGATED: Highlighted row has not occurred!04-14-2022 influenza virus vaccine, unspecified formulation Monique Marquez [facility] Payers Date Payer Category Payer Unknown ROSA ISELAANTONY MARTINEZ SS PPO [id number] 2022-Present [phone] [address] [place] [address] PPO [id number] 2018 Private Health Insurance [id number] 2018 Private Health Insurance [facility] CHOICE PLUS [id number] 2018-Present [phone] [address] [place] [address] HMO [id number] 1970 Unknown [id number] 2.16.840.1.632309.3.579.2 .647 1970 Unknown [id number] 2.16.840.1.405449.3.579.2 .593 1970 Unknown [id number] 2.16.840.1.765505.3.579.2 .593 1970 Unknown [id number] 2.16.840.1.676414.3.579.2 .593 1970 Unknown [id number] 2.16.840.1.617322.3.579.2 .593 1970 Unknown [id number] 2.16.840.1.614663.3.579.2 .593 1970 Unknown [id number] 2.16.840.1.883879.3.579.2 .593 1970 Unknown [id number] 2.16.840.1.965239.3.579.2 .593 1970 Unknown [id number] 2.16.840.1.531307.3.579.2 .593 1970 Unknown [id number] 2.16.840.1.248908.3.579.2 .593 1970 Unknown [id number] 2.16.840.1.381619.3.579.2 .593 1970 Unknown [id number] 2.16.840.1.125142.3.579.2 .593 1970 Unknown [id number] 2.16.840.1.915781.3.579.2 .593 1970 Unknown [id number] 2.16.840.1.793754.3.579.2 .593 1970 Unknown [id number] 2.16.840.1.552181.3.579.2 .593 1970 Unknown [id number] 2.16.840.1.646558.3.579.2 .593 1970 Unknown [id number] 2.16.840.1.756757.3.579.2 .593 1970 Unknown [id number] 2.16.840.1.397316.3.579.2 .593 1970 Unknown [id number] 2.16.840.1.162261.3.579.2 .593 1970 Unknown [id number] 2.16.840.1.783734.3.579.2 .593 1970 Unknown [id number] 2.16.840.1.911758.3.579.2 .593 1970 Unknown [id number] 2.16.840.1.397136.3.579.2 .356 1970 Unknown [id number] 2.16.840.1.243542.3.579.2 .356 1970 Unknown [id number] 2.16.840.1.960630.3.579.2 .727 1970 Unknown [id number] 2.16.840.1.977526.3.579.2 .727 1970 Unknown [id number] 2.16.840.1.417636.3.579.2 .727 1970 Unknown [id number] 2.16.840.1.317629.3.579.2 .727 1970 Unknown [id number] 2.16.840.1.145568.3.579.2 .1286 1970 Unknown [id number] 2.16.840.1.150385.3.579.2 .1286 1970 Unknown [id number] 2.16.840.1.654007.3.579.2 .1286 1970 Unknown [id number] 2.16.840.1.178136.3.579.2 .1286 1959 Medicaid [id number] 1959 Self-pay [id number] 1959 Unknown [id number] 1959 Unknown [id number] Medicare Medicare [id number] Unknown [id number] 2.16.840.1.696380.3.579.2 .531 Unknown [id number] 2.16.840.1.427226.3.579.2 .531 Unknown [id number] 2.16.840.1.918190.3.579.2 .531 Unknown [id number] 2.16.840.1.193531.3.579.2 .531 Unknown [id number] 2.16.840.1.605337.3.579.2 .531 Worker's Compensation Industrial Self Ins [facility] [id number] Social History Date Type Detail Facility Start: 12-03-2021 End: 05-06-2023 Tobacco smoking status Ex-smoker (finding) [facility] Start: 08-12-2020 End: 05-06-2023 Sex Assigned At Female [facility] Tobacco smoking status Never [facility] Start: 1970 Sex Assigned At Female [facility] End: 09-05-2011 History of tobacco use Current smoker [facility] Work Phone: End: 09-05-2011 History of tobacco use Cigarette Smoker [facility] Work Phone: Start: 04-28-2018 End: 05-06-2023 Tobacco use and exposure Smokeless tobacco non-user [facility] Work Phone: Start: 04-28-2018 End: 05-06-2023 Alcohol intake Current drinker of alcohol (finding) [facility] Start: 08-12-2020 End: 05-06-2023 History of Social function [facility] Start: 04-28-2018 End: 05-06-2023 Tobacco Comment still smokes [facility] Start: 04-28-2018 Alcohol Comment social [facility] Start: 1970 Sex Assigned At Not on file [facility] Start: 07-14-2023 Alcohol intake Ex-drinker (finding) [facility] Functional Status Date Assessment Result Facility 02-19-2023 Functional Status N/A [facility] 07-22-2022 Functional Status N/A [facility] 04-14-2022 Functional Status N/A [facility] Clinical Notes 12-02-2021 to 08-25-2023 Evelyn Black RN - 07/29/2023 11:17 AM ESTPatient InstructionsTelephone Encounter - Evelyn Black RN - 07/22/2023 3:[address] - 07/22/2023 1:15 PM EST Note Date & Type Note Facility 08-25-2023 Note HNO ID: [id number] Author: Ellis Mayberry DO Service: ? Author [...] Successful intubation technique: video laryngoscopy Devices used: kompany Endotracheal tube insertion site: oral Blade: Jake Blade size: #3 ETT size (mm): 7.0 Measured from: lips Measurement (cm): 22 Placement verified by: chest auscultation and capnometry Cormack-Lehane Classification: grade I - full view of glottis Number of attempts at approach: 1 Airway not difficult SIGNATURE: Ellis Mayberry DO PATIENT NAME: Constantino Cardoso DATE: August 25, 2023 TIME: 2:59 PM CSN: [id number] [facility] 08-25-2023 Note Q3 Patient Name: Constantino Cardoso Procedure Date: 08/25/2023 2:38 PM Date of : 1970 Admit Type: Outpatient Age: 53 Gender: Female Note Status: Finalized Attending MD: Marques Bradley MD, [id number] Procedure: Upper GI endoscopy Indications: Gastroparesis- for [...] the patient. Procedure Code(s): --- Professional --- 32572 Diagnosis Code(s): --- Professional --- K44.9 Z98.890 CPT copyright 2020 [employer]. All rights reserved. Attending Participation: I personally performed the entire procedure. Scope In: 2:59:10 PM Scope Out: 3:37:20 PM MD Marques Rainey MD 08/25/2023 3:41:00 PM This report has been signed electronically by Marques Bradley MD Number of Addenda: 0 Note Initiated On: 08/25/2023 2:38 PM [facility] 07-29-2023 Note HNO ID: [id number] Author: Evelyn Black RN Service: ? Author Type: Registered Nurse Type: Progress Notes Filed: 07/29/2023 11:18 AM Note Text: e [facility] 07-29-2023 History of Present illness Narrative e documented in this encounter [facility] 07-22-[address] - [...] High Protein, Atkins, Boost Glucose Control, Owyn, Temperance Breakfast Essentials Light Start mixed with Fairlife [...] calories, no carbonation, no caffeine. Protein juarez (epvreto2n, Isopure, Gatorade protein), electrolyte drinks (Gatorade or Powerade zero, sugar free liquid IV or Drip Drop), sugar free jello and sugar free popsicles are also acceptable. Nutrition Monitoring & Evaluation: increase PO intake >75% of estimated needs, weight check and patient update Need for Follow up: based on surgery status documented in this encounter [facility] 07-22-2023 Note HNO ID: [id number] Author: Melissa Montalvo RD Service: ? Author Type: Registered Dietitian Type: Progress Notes Filed: 07/22/2023 4:06 PM Note Text: The [facility] Nutrition Therapy: Virtual Consult - Initial Assessment I have communicated my name and active licensure. The patient?s identity and physical location were verified at the time of this visit. Either the patient or their legal bottling equipment sales representative has been informed of the [...] High Protein, Atkins, Boost Glucose Control, Owyn, Temperance Breakfast Essentials Light Start mixed with Fairlife fat free or 1% milk. -Check www.bariatricfusion.com or www.Biomass CHP.com for additional options. Take small bites, eat slowly, chew food well, and always eat protein first. Separate eating and drinking by 30 min before and after. Aim for >64 oz water/day. Take small sips and avoid straws. Liquids should be sugar-free, no calories, no carbonation, no caffeine. 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 [place] body weight: 159 lbs. 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 [facility] 07-22-2023 Miscellaneous Notes BMI SPECIALTY CARE COORDINATION TELEPHONE ENCOUNTER Pt was seen in clinic and an EGD was ordered and completed. Recommendation was a GPOEM. Will consult with surgeon next week regarding next POC for pt. Pt VU. documented in this encounter [facility] 07-22-2023 History of Present illness Narrative The [facility] Nutrition Therapy: Virtual Consult - Initial Assessment I have communicated my name and active licensure. The patient s identity and physical location were verified at the time of this visit. Either the patient or their legal bottling equipment sales representative has been informed of the [...] High Protein, Atkins, Boost Glucose Control, Owyn, Temperance Breakfast Essentials Light Start mixed with Fairlife fat free or 1% milk. -Check www.bariatricfusion.com or www.Biomass CHP.com for additional options. Take small bites, eat slowly, chew food well, and always eat protein first. Separate eating and drinking by 30 min before and after. Aim for >64 oz water/day. Take small sips and avoid straws. Liquids should be sugar-free, no calories, no carbonation, no caffeine. 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 [place] body weight: 159 lbs. 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 Procedure Code(s): --- Professional --- 68882 Diagnosis Code(s): --- Professional --- K44.9 K31.89 Z98.890 R10.13 CPT copyright 2020 [employer]. All rights reserved. Attending Participation: I personally performed the entire procedure. Scope In: 10:40:19 AM Scope Out: 10:50:37 AM MD Marques Rainey MD 07/14/2023 10:53:09 AM This report has been signed electronically by Marques Bradley MD Number of Addenda: 0 Note Initiated On: 07/14/2023 10:24 AM [facility] 07-14-2023 Nurse Note 1121: Dr. Mehrdad Heart [...] In Department: GASTROENTEROLOGY documented in this encounter [facility] 07-13-2023 Note HNO ID: [id number] Author: Brennen Shaw, PhD Service: ? Author Type: Physician Type: Progress Notes Filed: 07/19/2023 10:07 AM Note Text: [facility] BARIATRIC SURGERY BEHAVIORAL HEALTH EVALUATION DATE OF SERVICE: July 13, 2023 TIME OF SERVICE: 2:10 PM-3:29 PM COST CENTER: O CPT CODE: - 41609 Brief Emotional/Behavioral Assessment with scoring/documentation - [id number] Virtual Psych Diagnostic Eval BILLING CODE: ENDO PSYL MAIN 52098/Marco DATE OF FIRST SERVICE THIS CYCLE: July 13, 2023 SESSION #: 1 BMI Surgical Pathway Visit type: Bariatric Surgeon Visit I have communicated my name and active licensure. The patient's identity and physical location were verified at the time of this visit. Either the patient or their legal bottling equipment sales representative has been informed of the risks and benefits of -- and alternatives to -- treatment through a remote evaluation and consents to proceed with the evaluation remotely. [facility] [employer] IDENTIFYING INFORMATION: Ms. Constantino Cardoso is a [...] other people who have undergone the procedure (group home Specific areas of understanding that should be [...] the binge episod (more content not included)... [facility] 05-27-2023 Miscellaneous Notes BMI SPECIALTY CARE COORDINATION TELEPHONE ENCOUNTER Pt contacted today regarding testing ordered when she had a consult with Dr Bradley. Manometry was normal and her GES was severely delayed. Reviewed results and will discuss with if POP is the next plan of care. Will update pt. Pt agreed with plan. documented in this encounter [facility] 05-26-2023 Note HNO ID: [id number] Author: aNbil Bell RT(R) Service: Nuclear Medicine Author Type: [...] 715 PATIENT DISCHARGED TO: Ambulatory patient, left [place] department area. A Diagnostic radioactive procedure has taken place, with no further precautions necessary other than routine body substance precautions. More information regarding radiation safety can be found using this link: [email or web address] SIGNATURE: RT Charmaine(R) PATIENT NAME: Constantino Cardoso DATE: May 26, 2023 TIME: 7:17 AM PAGER/CONTACT #: [facility] 05-25-2023 Note HNO ID: [id number] Author: Pedro Gonzalez LPN Service: ? Author Type: LICENSED NURSE Type: Progress Notes Filed: 05/25/2023 4:15 PM Note Text: Name: Constantino Cardoso CCF#: [id number] Date: 05/25/2023 ESOPHAGEAL MANOMETRY TEST Indication: Nausea [...] the test without difficulty. .Pedro Gonzalez LPN [facility] 05-25-2023 History of Present illness Narrative Name: Constantino Cardoso CCF#: [id number] Date: 05/25/2023 ESOPHAGEAL MANOMETRY TEST Indication: Nausea [...] .Pedro Gonzalez LPN documented in this encounter [facility] 05-16-2023 Miscellaneous Notes BMI SPECIALTY CARE [...] a gastric bypass. documented in this encounter [facility] 09-01-2023 Note HNO ID: [id number] Author: Marques Bradley MD Service: ? Author [...] for internal providers or letter via the [employer] for external providers. Chief Complaint: dysphagia [...] Bradley MD Date: 05/12/2023 Time: 8:15 AM [facility] 05-02-2023 Miscellaneous Notes [facility] SPECIALTY CARE COORDINATION TELEPHONE ENCOUNTER Chief complaint & duration dysphagia. Type of procedure: hernia repair hiatal with Dr. MORTENSEN in [place] February of 2019. Sending OP notes Nursing assessment (subjective/objective) . pain in chest area and getting worse Went to [facility] ED March 2023 who told her she needed a stent in her heart..but her c/o were difficulty swallowing and sent pt home and referred her to [facility] and was there in the hospital for [...] after records obtained documented in this encounter [facility] 04-26-2023 Miscellaneous Notes [facility] SPECIALTY CARE COORDINATION TELEPHONE ENCOUNTER Second attempt to contact this pt. Pt has upcoming information, and unable to complete any chart prep, history, symptoms, testing etc. LVM and call back number. documented in this encounter [facility] 04-21-2023 Evaluation note Encounter Date Diagnosis Assessment Notes Apr, Esophageal dysmotility (ICD-10 - K22.4) Apr, Esophageal spasm (ICD-10 - K22.4) Apr, Nausea & vomiting (ICD-10 - R11.2) Ashleynet reports that she still has nausea but no vomiting Patient reports that she is to see Dr. Strong at [facility] Patient is to start dicyclomine 20 mg 4 times daily sent to pharmcy today RTO 6 weeks Apr, Dysphagia (ICD-10 - R13.10) [employer] Other 08-14-2023 Miscellaneous Notes* Telephone Encounter - Evelyn Black RN - 04/18/2023 2:13 PM EDT BMI SPECIALTY CARE COORDINATION TELEPHONE ENCOUNTER Contacted pt regarding a referral from Dr Martinez's office. LVM and call back number. [facility] Miscellaneous Notes* Telephone Encounter - Yancy Lopez - 04/07/2023 1:15 PM EDT Referral rec'd [facility] Evaluation + Plan note Extracted from: Title:ED Note Author:Zabrina Patton DO Date :02/19/23 Right wrist sprain (S63.501A : [...] pain, # 20 tab(s), Refills(s) 0, Pharmacy: [facility]/pharmacy #[id number], 170, cm, 02/19/23 0:56:00 EDT, Height/Length Dosing, 90.2, kg, 02/19/23 0:56:00 EDT, Weight Dosing XR Elbow 3+ Views Right XR Wrist 3+ Views Right [facility]06-17-2023 Hospital Discharge instructions Patient Education 02/19/2023 [...] are safe for you. General instructions Take rqtw-iia-sjzgmaw and prescription medicines only as told by [...] provider. Document Revised: 12/29/2020 Document Reviewed: 12/29/2020 [employer] Patient Education 2022 [employer]. Follow Up Care 02/19/2023 00:51:16 With:JUDI YOUSSEF Address: [address] [place] [phone] Business (1) When:02/22/2023 Comments:Take the pain medication as prescribed as needed for pain. Please follow-up with your primary care doctor in the next 2 to 3 days for further evaluation management. Please return to the ED for any new or worsening symptoms or [facility]08-10-2022 Hospital Discharge instructions Patient Education 04/14/2022 [...] water added (diluted fruit juice). Eat bland, zmrr-vj-hqgupt foods in small amounts as you are able. These foods include bananas, applesauce, rice, lean meats, toast, and crackers. Avoid fluids that contain a lot of sugar or caffeine, such as energy drinks, sports drinks, and soda. Avoid alcohol. Avoid spicy or fatty foods. General instructions Take sbqu-nwc-sstknvp and prescription medicines only as told by your health care provider. Drink enough fluid to keep your urine pale yellow. Wash your hands often using soap and water. If soap and water are not available, use hand trust evaluation supervisor. Make sure that all people in your [...] eating and drinking to prevent dehydration. Take pkwd-swq-qkcvuyc and prescription medicines only as told by [...] 08/22/2006 Document Revised: 12/14/2019 Document Reviewed: 01/30/2019 [employer] Patient Education 2020 [employer]. Follow Up Care 01/28/2022 13:58:23 With:Monique Marquez CNP Address: When:3 months [facility] 05-26-2022 Hospital Discharge instructions [...] drinks. ?Tomatoes and foods made with tomatoes. ?[place] or spicy foods. ?Chocolate and peppermint. Do not drink alcohol. General instructions Take yurs-two-ivtjzqj and prescription medicines only as told by [...] 11/11/2004 Document Revised: 12/18/2018 Document Reviewed: 12/18/2018 [employer] Patient Education 2020 [employer] Follow Up Care 01/13/2022 12:36:01 With:Monique Marquez CNP Address: When:3 months [facility] 05-09-2022 Hospital Discharge instructions Patient Education 01/11/2022 09:56:58 Endoscopy, Care After Procedure [facility] Endoscopy Care After Procedure Please read the instructions outlined below and refer to this sheet in the next few weeks. These discharge instructions provide you with general information on caring [facility] Your doctor may also give you specific [...] blood. Document Released: 04/05/2005 Document Re-Released: 02/13/2007 [employer] Patient Information [facility]. 01/11/2022 09:56:58 Pearce's Esophagus Pearce's Esophagus Pearce's [...] drinks. ?Tomatoes and foods made with tomatoes. ?[place] or spicy foods. ?Chocolate and peppermint. Do not drink alcohol. General instructions Take oqzq-qwl-ekahchw and prescription medicines only as told by [...] 11/11/2004 Document Revised: 12/18/2018 Document Reviewed: 12/18/2018 [employer] Patient Education 2020 [employer]. Follow Up Care 12/03/2021 15:32:26 With:Anai REAGAN Address: [address] [place] [address]. [address] [place] [address] Business (1) When:1 to 2 weeks Comments:Call for any problems. [facility]03-30-2022 Hospital Discharge instructions Follow Up Care 12/02/2021 10:32:32 With:JHOANA MELGOZA PA-C, URL Address: [place] [address] When: Unknown [facility] Evaluation + Plan note Future Appointments Appointment Date:01/11/2022 09:40:00 AM Scheduled Provider: Location:[facility] Appointment Type:Surgery FT [facility] [place] Evaluation + Plan note Future Appointments Appointment Date:04/14/2022 03:00:00 PM Scheduled Provider:Monique Marquez CNP Location:[facility] Appointment Type:[facility] Follow Up Future Scheduled Tests Radiology* NM Gastric Emptying Study 01/28/22 [facility] Evaluation + Plan note Future Appointments Appointment Date:04/14/2022 03:00:00 PM Scheduled Provider:Monique Marquez CNP Location:[facility] Appointment Type:[facility] Follow Up [facility] Future Appointments Appointment Date:04/20/2022 12:00:00 PM Scheduled Provider: Location:.[facility] Appointment Type:US Abdominal/Pelvis () Appointment Date:06/02/2022 09:45:00 AM Scheduled Provider:Anai REAGAN MD Location:[facility] Appointment Type:[facility] Follow Up Future Scheduled Tests Laboratory* Fecal WBC Lactoferrin 04/14/22 * Giardia lamblia, Direct Detection EIA 04/14/22 * O & P Exam, Routine 04/14/22 * Clostridium difficile by PCR 04/14/22 * Enteric Panel by PCR 04/14/22 * CBC w/ Auto Diff 04/14/22 * Comprehensive Metabolic Panel 04/14/22 Radiology* US Abdomen Complete 04/20/22 [facility] Evaluation + Plan note Future Appointments Appointment Date:06/02/2022 09:45:00 AM Scheduled Provider:Anai REAGAN MD Location:[facility] Appointment Type:[facility] Follow Up Diagnostic Tests Pending * O & P Exam, Routine 04/29/22 * Giardia lamblia, Direct Detection EIA 04/29/22 [facility] noteNo assessment information available [facility] Work Phone: Evaluation noteNo InformationNortPenn State [facility] St[facility] [employer] Other Evaluation note* Diagnosis Nausea- Primary Nausea alone Dysphagia, unspecified type documented in this encounter [facility] note* Diagnosis Nausea Nausea alone documented in this encounter [facility] note* Diagnosis Dysphagia, unspecified type Gastroparesis History of Ramiro fundoplication Personal history of surgery to other organs documented in this encounter [facility] note* Diagnosis Gastroparesis- Primary Malnutrition of moderate degree (HCC) Malnutrition of moderate degree Gastro-esophageal reflux disease without esophagitis Esophageal reflux Overweight (BMI 25.0-29.9) Overweight Dietary counseling and surveillance Dietary surveillance and counseling documented in this encounter [facility] note* Diagnosis Gastroparesis- Primary documented in this encounter [facility] general Narrative - Reported* Type Description Date Medical History mitral valve prolapse Medical History gallstones Medical History Acid reflux Medical History Hiatal Hernia Medical History headache Surgical History hysterectomy Surgical History cholecystectomy Surgical History hiatal hernia repair Hospitalization History see above Hospitalization History kindey infections hospit alized x3 [facility] [employer] Other Hospital course Narrative No data available for this section [facility] Hospital Discharge instructions No data available for this section [facility] Additional Instructions Follow-up with your primary care doctor Return to ED if develop worsening symptoms or [facility] Work Phone: Hospital Discharge instructions Additional Instructions If your symptoms return/worsen or you develop any further concerns or symptoms please see your doctor or return to the emergency department immediately. Please be sure to continue follow-up with the windows systems engineer and with your scheduled EGD and further testing.[facility] Work Phone: Progress note No data available for this section [facility] for referral (narrative)* Diagnostic Procedure Only (Routine) - Authorized Specialty Diagnoses / Procedures [facility] Referred To Contact MOLECULAR & FUNCTIONAL IMAGING Diagnoses Nausea Procedures NM GASTRIC EMPTYING SOLID GASTRIC EMPTYING STUDY Marques Bradley MD [address] [place] [address] Molecular & Functional Imaging [address] [place] [address] Referral ID Status Reason Start Date Expiration Date Visits Requested Visits Authorized [id number] Authorized Auto-Generat ed Referral 05/16/2023 06/14/2024 1 1 * Outpatient Procedure (Routine) - Authorized Specialty Diagnoses / Procedures Referred By Eileen mueller Referred To Contact [facility] Diagnoses Nausea Procedures MANOMETRY ESOPHAGEAL ESOPHAGEAL MOTILITY STUDY W/INTERP&RPT Marques Bradley MD [address] [place] [address] [facility] [address] [place] [address] Referral ID Status Reason Start Date Expiration Date Visits Requested Visits Authorized [id number] Authorized Auto-Generat ed Referral 05/16/2023 05/16/2024 1 1 [facility] for referral (narrative)* Outpatient Procedure (Routine) - Closed Specialty Diagnoses / Procedures Referred [facility] Referred To Contact [facility] Diagnoses Dysphagia, unspecified type Gastroparesis History of Ramiro fundoplication Procedures EGD - THERAPEUTIC, EUS, OR TUBE INTERVENTIONS ESOPHAGOGASTRODUODENOSCOPY TRANSORAL DIAGNOSTIC STOMACH SURGERY PROCEDURE UNLISTED Marques Bradley MD [address] [place] [address] [facility] Disease [place] [address] [place] [address] Referral ID Status Reason Start Date Expiration Date V isits Requested Visits Authorized [id number] Closed Auto-Generate d Referral 05/27/2023 05/27/2024 1 1 [facility] for referral (narrative)* Outpatient Procedure (Routine) - Authorized Specialty Diagnoses / Procedures Referred By Eileen mueller Referred To Contact [facility] Diagnoses Gastroparesis Procedures EGD - THERAPEUTIC, EUS, OR TUBE INTERVENTIONS ESOPHAGOGASTRODUODENOSC OPY TRANSORAL DIAGNOSTIC STOMACH SURGERY PROCEDURE UNLISTED Marques Bradley MD [address] [place] [address] [address] Referral ID Status Reason Start Date Expiration Date Visits Requested Visits Authorized [id number] Authorized Auto-Generat ed Referral 07/29/2024 1 1 [facility] for visit Narrative* Outpatient Procedure (Routine) - Closed Specialty Diagnoses / Procedures Referred By Eileen mueller Referred To Contact [facility] Diagnoses Dysphagia, unspecified type Gastroparesis History of Ramiro fundoplication Procedures EGD - THERAPEUTIC, EUS, OR TUBE INTERVENTIONS ESOPHAGOGASTRODUODENOSCOPY TRANSORAL DIAGNOSTIC STOMACH SURGERY PROCEDURE UNLISTED Marques Bradley MD [address] [place] [address] [facility] [address] [place] [address] Referral ID Status Reason Start Date Expiration Date V isits Requested Visits Authorized [id number] Closed Auto-Generate d Referral 05/27/2023 05/27/2024 1 1 [facility] Summary Purpose Family History No Family History Records Found Relationship Condition Age at Onset Recorded Date/T daniel father Myocardial infarction Unknown Malignant neoplasm Unknown sister Seizure Unknown Hypertension Unknown Advance Directives No Advanced Directives Records Found Advance Directive Response Recorded Date/ Time Advance Directives No November 23 9:23am Advance Directive Response Recorded Date/ Time Advance Directives No November 23 10:23am Hospital Course Note MR#: [id number] [facility] Pt. Name: Constantino Cardoso Admitted: 08/13/2019 [...] a 49-year-old female, who was transferred to [facility] from [facility] with acute abdominal pain. The pain has started on Tuesday while at work. 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 The pain feels similar to when she was here in April during her stay. During that time, she was told there was nothing left for Dr. Mortensen to do and she has been following up with GI specialist in [place]. She is actually due to have an EGD on August 22, 2019. She has been having nausea, but no vomit (more content not included)... Chief Complaint and Reason for Visit Chief Complaint stomach pain/hx marium Chief Complaint stomach pain/hx marium R10.9 K59.00 Chief Complaint abd pain stomach pian/vomiting Additional Source Comments INFORMATION SOURCE (unrecogn ized section and content) DATE CREATED AUTHOR 06/03/2020 [facility] DATE CREATED AUTHOR AUTHOR'S ORGANIZ ATION 01/17/2023 [facility] DATE CREATED AUTHOR AUTHOR'S ORGANIZ ATION 04/02/2023 [facility] DATE CREATED AUTHOR AUTHOR'S ORGANIZ ATION 05/16/2023 [facility] DATE CREATED AUTHOR AUTHOR'S ORGANIZ ATION 06/11/2023 [facility] DATE CREATED AUTHOR AUTHOR'S ORGANIZ ATION 08/26/2023 [facility] DATE CREATED AUTHOR AUTHOR'S ORGANIZ ATION 12/03/2023 [facility] Care Team (unrecognized sect ion and content) Team Status: Inactive Member Role Status Dates DONI Stovall Primary Care Provider Active Conner Griffith DO Emergency Provider Active Team Status: Active Member Role Status Dates DONI Stovall Primary Care Provider Active Team Status: Inactive Member Role Status Dates Jennie Ayon MD Attending Provider Active Judi Joan Mikael , 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 Primary Care Provider Active Team Status: Inactive Member Role Status Dates Judi Youssef , 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 Primary Care Provider Active Pete Thakkar DO Emergency Provider Active Clear Coat Sprayer Relationship Specialty Start Date End Date DomenicoJoel blanco PCP - General Family Medicine 04/26/18 Raf[address] R[address] [place] [address] Referring General Surgery 04/26/18 Clear Coat Sprayer Relationship Specialty Start Date End Date DomenicoJoel blanco PCP - General Family Medicine 04/26/18 [address] [facility] [address] [place] [address] Referring General Surgery 04/26/18 Clear Coat Sprayer Relationship Specialty Start Date End Date DomenicoJoel blanco PCP - General Family Medicine 04/26/18 Rafa Rangel [address] [facility] [address] [place] [address] Referring General Surgery 04/26/18 Clear Coat Sprayer Relationship Specialty Start Date End Date DomenicoJoel blanco PCP - General Family Medicine 04/26/18 Raf[address]angel [address] [facility] [address] [place] [address] Referring General Surgery 04/26/18 Clear Coat Sprayer Relationship Specialty Start Date End Date Joel Alejandra PCP - General Family Medicine 04/26/18 Rafa Rangel [address] [place] [address] Referring General Surgery 04/26/18 Clear Coat Sprayer Relationship Specialty Start Date End Date Joel Alejandra PCP - General Family Medicine 04/26/18 Rafa Rangel [address] [place] [address] Referring General Surgery 04/26/18 Clear Coat Sprayer Relationship Specialty Start Date End Date Joel Alejandra PCP - General Family Medicine 04/26/18 Rafa Rangel [address] [place] [address] Referring General Surgery 04/26/18 Clear Coat Sprayer Relationship Specialty Start Date End Date Joel Alejandra PCP - General Family Medicine 04/26/18 Rafa Rangel [address] [place] [address] Referring General Surgery 04/26/18 Clear Coat Sprayer Relationship Specialty Start Date End Date Joel Alejandra PCP - General Family Medicine 04/26/18 Rafa Rangel [address] [address] Referring General Surgery 04/26/18 Clear Coat Sprayer Relationship Specialty Start Date End Date Joel Alejandra PCP - General Family Medicine 04/26/18 Rafa Rangel [address] [place] [address] Referring General Surgery 04/26/18 Clear Coat Sprayer Relationship Specialty Start Date End Date Joel Alejandra PCP - General Family Medicine 04/26/18 Rafa Rangel [address] [place] [id number] Referring General Surgery 04/26/18 Goals (unrecognized section and content) Goals may be documented in a n alternate section REASON FOR VISIT (unrecogniz ed section and content) Reason Comments Appointment Reason Comments Pipe Threader - Other Reason Onset Date Comments Procedure 05/25/2023 Manometry Esopha geal Specialty Diagnoses / Procedures Referred By Contsavanah t Referred To Contact [facility] Diagnoses Nausea Procedures MANOMETRY ESOPHAGEAL ESOPHAGEAL MOTILITY STUDY W/INTERP&RPT Marques Bradley MD [address] [place] [address] [facility] [address] [place] [address] Referral ID Status Reason Start Date Expiration Date V isits Requested Visits Authorized [id number] Closed Auto-Generate d Referral 05/16/2023 05/16/2024 1 1 Reason Comments Results Reason Comments Patient Education Assessment Source Comments (unrecognize d section and content) In the event this informatio n is protected by the Federal Confidentiality of Alcohol and Drug Abuse Patient Records regulations: The Federal rules restrict any use of the information to criminally investigate or prosecute any alcohol or drug abuse patient.[facility] the event this information is protected by the Federal Confidentiality of Alcohol and Drug Abuse Patient Records regulations: The Federal rules restrict any use of the information to criminally investigate or prosecute any alcohol or drug abuse patient.[facility] the event this information is protected by the Federal Confidentiality of Alcohol and Drug Abuse Patient Records regulations: The Federal rules restrict any use of the information to criminally investigate or prosecute any alcohol or drug abuse patient.[facility] the event this information is protected by the Federal Confidentiality of Alcohol and Drug Abuse Patient Records regulations: The Federal rules restrict any use of the information to criminally investigate or prosecute any alcohol or drug abuse patient.[facility] the event this information is protected by the Federal Confidentiality of Alcohol and Drug Abuse Patient Records regulations: The Federal rules restrict any use of the information to criminally investigate or prosecute any alcohol or drug abuse patient.[facility] the event this information is protected by the Federal Confidentiality of Alcohol and Drug Abuse Patient Records regulations: The Federal rules restrict any use of the information to criminally investigate or prosecute any alcohol or drug abuse patient.[facility] the event this information is protected by the Federal Confidentiality of Alcohol and Drug Abuse Patient Records regulations: The Federal rules restrict any use of the information to criminally investigate or prosecute any alcohol or drug abuse patient.[facility] the event this information is protected by the Federal Confidentiality of Alcohol and Drug Abuse Patient Records regulations: The Federal rules restrict any use of the information to criminally investigate or prosecute any alcohol or drug abuse patient.[facility] the event this information is protected by the Federal Confidentiality of Alcohol and Drug Abuse Patient Records regulations: The Federal rules restrict any use of the information to criminally investigate or prosecute any alcohol or drug abuse patient.[facility] the event this information is protected by the Federal Confidentiality of Alcohol and Drug Abuse Patient Records regulations: The Federal rules restrict any use of the information to criminally investigate or prosecute any alcohol or drug abuse patient.[facility] the event this information is protected by the Federal Confidentiality of Alcohol and Drug Abuse Patient Records regulations: The Federal rules restrict any use of the information to criminally investigate or prosecute any alcohol or drug abuse patient.[facility] the event this information is protected by the Federal Confidentiality of Alcohol and Drug Abuse Patient Records regulations: The Federal rules restrict any use of the information to criminally investigate or prosecute any alcohol or drug abuse patient.[facility] FOR RECORDS PERTAINING TO PATIENTS WHO [...] BE BASED ON THE PRIMARY CLINICAL RECORDS. [facility]. provides no warranty or guarantee of the accuracy or completeness of information in this document.
--- NOTE | 2023-12-15 05:39 | ED_ITS ---
HPI - Abdominal Pain General Chief Complaint: Abdominal Pain Stated Complaint: ABDOMINAL PAIN Time Seen by Provider: 12/15/23 05:20 Source: patient Mode of arrival: walk-in Limitations: no limitations History of Present Illness HPI narrative: This 53-year-old female with a history of chronic abdominal pain who is status post cholecystectomy, hysterectomy, surgery [facility] for gastroparesis and has had bowel obstructions in the past presents for evaluation of upper abdominal pain with nausea, belching and passing large amount of gas. She has not had any diarrhea. She has not vomited but just has been nauseated. She states she has not really been eating for the past several days. She denies any chest pain or shortness of breath. She has not had a fever or cough. Related Data Home Medications ?Medication ?Instructions ?Recorded ?Confirmed dicyclomine 20 mg tablet 20 mg PO QID 11/27/23 12/15/23 pantoprazole 40 mg tablet,delayed mg PO 12/15/23 release promethazine 25 mg tablet mg 12/15/23 Allergies Allergy/AdvReac Type Severity Reaction Status Date / Time cyclobenzaprine Allergy Severe Anaphylaxis Verified 12/15/23 05:20 [From Flexeril] Penicillins Allergy Intermediate Hives Verified 12/15/23 05:20 Review of Systems ROS Status of ROS 10 or more systems reviewed and unremark able except as noted in history and below [facility] Medical History (Updated 12/02/23 @ 00:00 by ) Partial obstruction of small intestine ?K56.600 - Partial intestinal obstruction, unspecified as to cause (ICD-10) Constipation ?K59.00 - Constipation, unspecified (ICD-10) Ileus ?K56.7 - Ileus, unspecified (ICD-10) Nausea and vomiting ?R11.2 - Nausea with vomiting, unspecified (ICD-10) GERD (gastroesophageal reflux disease) ?K21.9 - Gastro-esophageal reflux disease without esophagitis (ICD-10) Elevated troponin ?R77.8 - Other specified abnormalities of plasma proteins (ICD-10) Chronic upper abdominal pain ?R10.10 - Upper abdominal pain, unspecified (ICD-10) ?G89.29 - Other chronic pain (ICD-10) Epigastric abdominal pain ?R10.13 - Epigastric pain (ICD-10) Abdominal pain, chronic, generalized ?R10.84 - Generalized abdominal pain (ICD-10) ?G89.29 - Other chronic pain (ICD-10) Headache, migraine ?G43.909 - Migraine, unspecified, not intractable, without status migrainosus (ICD-10) Gastroparesis ?K31.84 - Gastroparesis (ICD-10) Mitral valve disorder ?I05.9 - Rheumatic mitral valve disease, unspecified (ICD-10) Surgical History 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 ?K95.89 - Other complications of other bariatric procedure (ICD-10) ?K22.4 - Dyskinesia of esophagus (ICD-10) History of hernia surgery ?Z98.890 - Other specified postprocedural states (ICD-10) ?Z87.19 - Personal history of other diseases of the digestive system (ICD-10) FH: cholecystectomy ?Z83.79 - Family history of other diseases of the digestive system (ICD-10) H/O: hysterectomy ?Z90.710 - Acquired absence of both cervix and uterus (ICD-10) Family History Father Family history of myocardial infarction Family history of cancer Grandmother Family history of diabetes mellitus Family history of stroke Sister Family history of hypertension Social History Within the past year, how often did you have a drink containing alcohol: never Within the past year, how many standard drinks containing alcohol did you have on a typical day: 1 or 2 Within the past year, how often did you have six or more drinks on one occasion: never Total score: 0 Score interpretation: A score less than 3 is consistent with normal alcohol consumption. 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 Known occupational exposures/hazards: No Highest level of school completed/degree received: high school graduate Do you want help with school or training: No Are you now , , , , never or living with a partner: In a typical week, how many times do you talk on the telephone with family, friends, or neighbors: 3 or more times per week How often do you get together with friends or relatives: 3 or more times per week How often do you attend religious or church services: never Do you belong to any clubs or organizations such as religious groups unions, fraternal or athletic groups, or school groups: no Total score: 2 Score interpretation: A score of greater than or equal to 2 indicates the lowest level of social isolation. Little interest or pleasure in doing things: not at all Feeling down, depressed, or hopeless: not at all Feel stressed/tense/nervous/anxious/difficulty sleeping: not at all Due to disability, difficulty making decisions: No Do you think of yourself as: straight/heterosexual Gender Identity: female Exam Narrative Exam Narrative: Nurses note and vital signs reviewed and patient is not hypoxic. Blood pressure is noted to be elevated at 160/87 General: Alert, nontoxic female, she is belching and passing gas, no respiratory distress Skin: Warm, dry, no pallor noted. There is no rash noted. Head: Normocephalic, atraumatic Eye: Normal conjunctiva, no drainage, EOMI. PERRL Ears, Nose, Mouth, and Throat: oral mucosa is moist. Cardiovascular: Regular Rate and [id number], no murmurs, rubs or gallops, pulses are brisk and equal bilaterally Respiratory: Patient is in no distress, no accessory muscle use, lungs are clear to auscultation, no wheezing, rales or rhonchi Back: non-tender, no CVA tenderness bilaterally to percussion. GI: Hyperactive bowel sounds, patient is belching and passing gas, abdomen is soft with epigastric, LUQ and RUQ tenderness with no rebound,guarding or rigidity Musculoskeletal: The patient has no evidence of calf tenderness, no pitting edema, symmetrical pulses noted bilaterally Neurological: A&O x4, normal speech Psychiatric: Cooperative Constitutional Vital Signs, click to edit/add: Last Vital Signs Temp 97.6 F 12/15/23 05:21 Pulse 67 12/15/23 06:14 Resp 18 12/15/23 06:14 BP 151/90 H 12/15/23 06:14 Pulse Ox 98 12/15/23 06:14 O2 Del Method Room Air 12/15/23 06:14 Course Vital Signs Vital signs: Vital Signs Temperature 97.6 F 12/15/23 05:21 Pulse Rate 59 L 12/15/23 05:21 Respiratory Rate 18 12/15/23 05:21 Blood Pressure 160/87 H 12/15/23 05:21 Pulse Oximetry 100 12/15/23 05:21 Oxygen Delivery Method Room Air 12/15/23 05:21 Temperature 97.6 F 12/15/23 05:21 Pulse Rate 67 12/15/23 06:14 Respiratory Rate 18 12/15/23 06:14 Blood Pressure 151/90 H 12/15/23 06:14 Pulse Oximetry 98 12/15/23 06:14 Oxygen Delivery Method Room Air 12/15/23 06:14 MDM - Abdominal Pain MDM Narrative Medical decision making narrative: This 53-year-old female the history of multiple abdominal surgeries and bowel obstructions presents for evaluation of nausea with excessive amounts of belching and flatus. She also complains of upper abdominal pain. She has had several recent hospitalizations for early or incomplete bowel obstructions. She has not had any vomiting or diarrhea recently. Her vital signs were stable with a mildly elevated blood pressure. She did appear to be uncomfortable and was medicated with IV fluids, Zofran, Pepcid and Toradol and a gastrointestinal cocktail. Reevaluation she is feeling somewhat better but still nauseated. Routine labs are reviewed. She has a normal white count and hemoglobin. Electrol ytes are normal. Lipase is normal. Lactic acid is normal. X-ray of the abdomen was performed and is concerning for developing bowel obstruction with recommendation for a CT scan of abdomen and pelvis. This was discussed with the patient who understands and is in agreement with the CAT scan. She will be given IV and oral contrast for the purpose of the CT scan. Before starting the oral contrast portion she will be given additional doses Zofran. He signed out to the incoming physician at [address] scan results and further evaluation. Medical Records Medical records narrative: [facility] [place] [id number] XRay Report Signed Patient: CONSTANTINO CARDOSO MR#: [id number] : 1970 Acct:[id number] Age/Sex: 53 / F ADM Date: 12/15/23 Loc: ER Attending Dr: Ordering Physician: Saniya Avila Date of Service: 12/15/23 Procedure(s): XR acute abdomen series Accession Number(s): [id number] cc: STEPHANIE YOUSSEF ; Saniya Marker~ [facility] [place] [id number] Patient Name: CONSTANTINO CARDOSO MRN: [id number] date: 1970 Sex: F Assigned Patient Location: ER Current Patient Location: ER Accession/Order Number: [id number] Exam Date: 12/15/2023 05:54 Report Date: 12/15/2023 06:08 At the request of: SANIYA MARKER Procedure: XR acute abdomen series EXAM: XR acute abdomen series HISTORY: Upper abdominal pain. COMPARISON: Acute abdominal series 10/13/2023. TECHNIQUE: Frontal view of the chest and AP upright and 2 AP supine views of the abdomen performed. FINDINGS: Chest: The trachea is midline. The cardiomediastinal silhouette and hilar shadows are within normal limits. The lung wolff are clear. There is no pneumothorax or osseous abnormality. Abdomen/pelvis: There is mild gaseous distention of the stomach. There is a small amount of gas within the colon. There is gas within several mildly distended loops of small bowel with scattered air-fluid levels. A developing small bowel obstruction cannot be excluded. There is no free intraperitoneal air. There are surgical clips within the epigastric region and right upper abdomen. There are no abnormal mass shadows. There are a a few pelvic phleboliths. There is slight dextroscoliosis of the lumbar spine. XR/XR acute abdomen series IMPRESSION: There is no acute cardiopulmonary process. Bowel gas pattern as described which in the right clinical setting can be associated with a developing small bowel structures. A CT examination of the abdomen/pelvis is recommended. Lab Data Labs: Lab Results 12/15/23 Range/Units 05:30 WBC 8.1 (4.0-11.0) 10^3/uL RBC 3.88 L (4.20-5.40) 10^6/uL Hgb 11.3 L (12.0-16.0) g/dL Hct 35.6 L (36.0-48.0) % MCV 91.8 (81.0-99.0) fL MCH 29.1 (26.7-34.0) pg MCHC 31.7 (29.9-35.2) g/dL RDW 13.4 (11.0-15.0) % Plt Count 339 (150-450) 10^3/uL MPV 9.2 L (9.5-13.5) fL Neut % (Auto) 66.8 (43.0-75.0) % Lymph % (Auto) 22.9 (20.5-60.0) % [place] % (Auto) 6.5 (1.7-12.0) % Eos % (Auto) 3.2 (0.9-7.0) % Baso % (Auto) 0.5 (0.2-2.0) % Neut # (Auto) 5.4 (1.4-6.5) 10^3/uL Lymph # (Auto) 1.9 (1.2-3.8) 10^3/uL [place] # (Auto) 0.5 (0.3-0.8) 10^3/uL Eos # (Auto) 0.3 (0.0-0.7) 10^3/uL Baso # (Auto) 0.0 (0.0-0.1) 10^3/uL Abs Immat Gran (auto) 0.01 (0.00-0.03) 10^3/uL Imm/Tot Granulo (auto) 0.1 (0.0-0.5) % Sodium 143 (136-145) mmol/L Potassium 3.4 L (3.5-5.1) mmol/L Chloride 108 H (98-107) mmol/L Carbon Dioxide 24.1 (21.0-32.0) mmol/L Anion Gap 14.3 BUN 19.0 H (7.0-18.0) mg/dL Creatinine 0.75 (0.55-1.02) mg/dL Est GFR ( Amer) >60 (>=60) Est GFR (Non-Af Amer) >60 (>=60) BUN/Creatinine Ratio 25.3 Glucose 122 H (74-106) mg/dL Calcium 9.0 (8.5-10.1) mg/dL Total Bilirubin 0.2 (0.2-1.0) mg/dL AST 18 (15-37) U/L ALT 25 (14-59) U/L Alkaline Phosphatase 135 H (46-116) U/L Total Protein 6.5 (6.4-8.2) g/dL Albumin 3.2 L (3.4-5.0) g/dL Globulin 3.3 g/dL Albumin/Globulin Ratio 1.0 Lipase 40.0 (16.0-77.0) U/L Discharge Plan Discharge Chief Complaint: Abdominal Pain Patient Disposition: Still a Patient Prescriptions / Home Meds: No Action pantoprazole 40 mg tablet,delayed release (DR/EC) PO promethazine 25 mg tablet dicyclomine 20 mg tablet 20 mg PO QID Print Language: Kazakh Referrals: STEPHANIE YOUSSEF [Primary Care Provider] - 1 week
[2023-12-15 05:47] LABS: Basophils Percent Auto 0.5 % (0.2-2.0); Eosinophils Absolute Auto 0.3 10^3/uL (0.0-0.7); Eosinophils Percent Auto 3.2 % (0.9-7.0); Hematocrit 35.6 % (36.0-48.0); Hemoglobin 11.3 g/dL (12.0-16.0); Immature Granulocytes Abs Auto 0.01 10^3/uL (0.00-0.03); Immature Granulocytes Pct Auto 0.1 % (0.0-0.5); Lymphocytes Absolute Auto 1.9 10^3/uL (1.2-3.8); Lymphocytes Percent Auto 22.9 % (20.5-60.0); Mean Corpuscular HGB Conc 31.7 g/dL (29.9-35.2); Mean Corpuscular Hemoglobin 29.1 pg (26.7-34.0); Mean Corpuscular Volume 91.8 fL (81.0-99.0); Mean Platelet Volume 9.2 fL (9.5-13.5); Monocytes Absolute Auto 0.5 10^3/uL (0.3-0.8); Monocytes Percent Auto 6.5 % (1.7-12.0); Neutrophils Absolute Auto 5.4 10^3/uL (1.4-6.5); Neutrophils Percent Auto 66.8 % (43.0-75.0); Platelet Count 339 10^3/uL (150-450); Red Blood Count 3.88 10^6/uL (4.20-5.40); Red Cell Distribution Width 13.4 % (11.0-15.0); White Blood Count 8.1 10^3/uL (4.0-11.0)
[2023-12-15 06:00] LABS: Alanine Aminotransferase 25 U/L (14-59); Albumin Level 3.2 g/dL (3.4-5.0); Alkaline Phosphatase 135 U/L (46-116); Anion Gap 14.3; Aspartate Amino Transferase 18 U/L (15-37); BUN Creatinine Ratio 25.3; Bilirubin Total 0.2 mg/dL (0.2-1.0); Carbon Dioxide 24.1 mmol/L (21.0-32.0); Chloride 108 mmol/L (98-107); Estimated GFR (African America >60 (>=60); Estimated GFR (Non-African Ame >60 (>=60); Globulin 3.3 g/dL; Glucose 122 mg/dL (74-106); Potassium 3.4 mmol/L (3.5-5.1); Sodium 143 mmol/L (136-145); Total Protein 6.5 g/dL (6.4-8.2)
[2023-12-15] MEDS: lidocaine HCL 15 ML, MAG HYDROX/ALUMINUM HYD/SIMETH 30 ML, HYOSCYAMINE SULFATE 0.25 MG PO (06:12)
[2023-12-15] MEDS: 0.9 % SODIUM CHLORIDE 1,000 ML 1000 ML IV (06:12)
[2023-12-15] MEDS: ONDANSETRON PF 4 MG/2 ML VIAL IV ×2 (06:13→07:03)
[2023-12-15 06:14] VITALS: BP 151/90; PULSE 67; O2SAT 98
[2023-12-15] MEDS: DICYCLOMINE HCL 20 MG/2 ML VIAL IM (06:14)
[2023-12-15] MEDS: KETOROLAC TROMETHAMINE 30 MG/ML VIAL IVP (06:14)
--- NOTE | 2023-12-15 06:24 | CT_ITS ---
The [address] [address] Patient Name: CONSTANTINO CARDOSO MRN: [id number] date: 1970 Sex: F Assigned Patient Location: ER Current Patient Location: ER Accession/Order Number: [id number] Exam Date: 12/15/2023 08:07 Report Date: 12/15/2023 08:45 At the request of: RONALD MARKER Procedure: CT abdomen pelvis w con CT abdomen and pelvis with contrast CLINICAL: R/o SBO gassy stomach pain for one day. COMPARISON: None. TECHNIQUE: Computed tomography of the abdomen and pelvis was performed following the uneventful administration of 93 cc Omnipaque 300 intravenous contrast. Oral contrast was also provided. Dose reduction: mA and/or kV are adjusted by automated exposure control software based on patient size. FINDINGS: There is a 4.5 cm hiatal hernia, with postoperative changes at the diaphragmatic hiatus. There is oral contrast within the stomach and in nondilated small bowel into the right colon. Small stool burden with a small amount of fluid in the colon. There is subtle wall thickening of a focal area of distal transverse colon that is probably mild colitis. No inflammation of small bowel. There is a very tiny normal appendix seen (image 45 series 5, image 113 series 3). Liver, spleen, and pancreas are normal in appearance. Gallbladder surgically absent without biliary ductal dilatation. Adrenal glands are normal. Kidneys enhance symmetrically without perinephric stranding or hydronephrosis. Small extra renal pelves noted bilaterally. Bladder is normal in appearance. Uterus surgically absent. No adnexal abnormality. Abdominal aorta is normal. Small pelvic phleboliths. Portal vein is patent. No abdominal or pelvic lymphadenopathy. A few shotty inguinal lymph nodes noted. Mild endplate degenerative spurs in the thoracic and lumbar spine. Mild superior endplate compression fracture of T8 probably chronic. Mild bibasilar atelectasis and visualized lung bases. Heart size is normal. CT/CT abdomen pelvis w con IMPRESSION: 1. Air-fluid levels in the colon with subtle area wall focal wall thickening of distal transverse colon that may be mild colitis. Negative for bowel obstruction, with oral contrast seen into the right colon. No inflammation of small bowel. No significant diverticular disease. 2. 4.5 cm hiatal hernia and tiny decompressed normal appendix. 3. Cholecystectomy without biliary ductal dilatation. Normal pancreas. 4. No free fluid, mesenteric inflammation, abscess, or free air. Electronically authenticated by: ARASH WILEY Date: 12/15/2023 08:45
[2023-12-15 06:34] LABS: Lactate/Lactic Acid 1.6 mmol/L (0.4-2.0)
[2023-12-15 08:18] LABS: Bilirubin Urine NEGATIVE (NEGATIVE); Blood Urine NEGATIVE (NEGATIVE); Clarity Urine CLEAR (CLEAR); Color Urine LT. YELLOW (YELLOW); Glucose Urine UA NEGATIVE (NEGATIVE); Ketones Urine NEGATIVE (NEGATIVE); Leukocyte Esterase Urine TRACE (NEGATIVE); Nitrite Urine NEGATIVE (NEGATIVE); Protein Urine NEGATIVE (NEG/TRACE); Specific Gravity Urine 1.015 (1.005-1.025); Urobilinogen Urine 0.2 EU/dL (0.2-1.0); pH Urine 6.5 (5.0-9.0)
[2023-12-15 08:21] LABS: Urine Microscopic Indicated YES
[2023-12-15 08:28] LABS: Bacteria Urine TRACE #/HPF (NONE SEEN); Cast Seen? NONE SEEN #/LPF (NONE SEEN); Crystals Seen? None Seen #/HPF (None Seen); Mucus Urine NONE SEEN (NONE SEEN); RBC Urine 0-2 #/HPF (0-2); Squamous Epithelial Cell Urine RARE #/LPF (NONE/RARE); Urine Culture Indicated NO
== END 2023-12-15 09:54 | disposition home or self-care (01) ==
PROVIDERS: Emergency Medicine; Emergency Provider Emergency Medicine Emergency Medical Services; PCP Nurse Practitioner Family
DX: R10.9 Unspecified abdominal pain (principal); G89.29 Other chronic pain; K21.9 Gastro-esophageal reflux disease without esophagitis; Z90.710 Acquired absence of both cervix and uterus; Z90.49 Acquired absence of other specified parts of digestive tract; Z79.899 Other long term (current) drug therapy; Z87.891 Personal history of nicotine dependence; K56.609 Unspecified intestinal obstruction, unspecified as to partial versus complete obstruction
CPT/HCPCS: 36415; 74022; 74177; 80053; 81001; 83605; 83690; 85025; 87045; 87046; 87427; 87493; 96372; 96374; 96375; 96376; 99285; J0500; Q9967

== ENCOUNTER 2023-12-15 13:37 | Outpatient (REF) | payer BC, SELFPAY ==
[2023-12-15 16:09] LABS: C. Difficile PCR NEGATIVE (NEGATIVE)
== END 2023-12-15 13:38 | disposition home or self-care (01) ==
LOC: LAB 13:37
PROVIDERS: PCP Nurse Practitioner Family; Visit Provider Family Medicine
DX: K56.609 Unspecified intestinal obstruction, unspecified as to partial versus complete obstruction (principal)
CPT/HCPCS: 87045; 87046; 87427; 87493

== ENCOUNTER 2024-01-02 10:59 | Outpatient (OUT) | payer BC, SELFPAY ==
[2024-01-02 11:38] LABS: Basophils Percent Auto 0.6 % (0.2-2.0); Eosinophils Absolute Auto 0.3 10^3/uL (0.0-0.7); Eosinophils Percent Auto 5.8 % (0.9-7.0); Hematocrit 39.1 % (36.0-48.0); Hemoglobin 12.5 g/dL (12.0-16.0); Immature Granulocytes Abs Auto 0.01 10^3/uL (0.00-0.03); Immature Granulocytes Pct Auto 0.2 % (0.0-0.5); Lymphocytes Absolute Auto 1.6 10^3/uL (1.2-3.8); Lymphocytes Percent Auto 34.9 % (20.5-60.0); Mean Corpuscular Hemoglobin 28.7 pg (26.7-34.0); Mean Corpuscular Volume 89.9 fL (81.0-99.0); Mean Platelet Volume 9.2 fL (9.5-13.5); Monocytes Absolute Auto 0.2 10^3/uL (0.3-0.8); Monocytes Percent Auto 4.7 % (1.7-12.0); Neutrophils Absolute Auto 2.5 10^3/uL (1.4-6.5); Neutrophils Percent Auto 53.8 % (43.0-75.0); Platelet Count 327 10^3/uL (150-450); Red Blood Count 4.35 10^6/uL (4.20-5.40); Red Cell Distribution Width 12.9 % (11.0-15.0); White Blood Count 4.7 10^3/uL (4.0-11.0)
[2024-01-02 11:42] LABS: Bilirubin Urine NEGATIVE (NEGATIVE); Blood Urine TRACE-I (NEGATIVE); Clarity Urine CLEAR (CLEAR); Color Urine LT. YELLOW (YELLOW); Glucose Urine UA NEGATIVE (NEGATIVE); Ketones Urine NEGATIVE (NEGATIVE); Leukocyte Esterase Urine TRACE (NEGATIVE); Nitrite Urine NEGATIVE (NEGATIVE); Protein Urine NEGATIVE (NEG/TRACE); Urobilinogen Urine 0.2 EU/dL (0.2-1.0)
[2024-01-02 11:55] LABS: Bacteria Urine TRACE #/HPF (NONE SEEN); Mucus Urine NONE SEEN (NONE SEEN); RBC Urine 0-2 #/HPF (0-2); WBC Urine 0-2 #/HPF (NONE SEEN)
[2024-01-02 11:56] LABS: Cast Seen? NONE SEEN #/LPF (NONE SEEN); Crystals Seen? None Seen #/HPF (None Seen); Squamous Epithelial Cell Urine RARE #/LPF (NONE/RARE); Urine Culture Indicated ALREADY ORDERED
[2024-01-02 12:11] LABS: Estimated Average Glucose 120 mg/dL; Glycohemoglobin A1C 5.8 % (4.5-6.2)
[2024-01-02 13:28] LABS: Alanine Aminotransferase 24 U/L (14-59); Albumin Globulin Ratio 0.9; Albumin Level 3.5 g/dL (3.4-5.0); Alkaline Phosphatase 153 U/L (46-116); Anion Gap 13.1; Aspartate Amino Transferase 17 U/L (15-37); BUN Creatinine Ratio 18.6; Bilirubin Total 0.6 mg/dL (0.2-1.0); Calcium 9.5 mg/dL (8.5-10.1); Carbon Dioxide 25.4 mmol/L (21.0-32.0); Chloride 101 mmol/L (98-107); Chol HDL Ratio 2.6; Cholesterol 194 mg/dL (<=200); Estimated GFR (African America >60 (>=60); Estimated GFR (Non-African Ame >60 (>=60); Free T3 2.58 pg/mL (2.18-3.98); Globulin 3.8 g/dL; Glucose 137 mg/dL (74-106); HDL Cholesterol 76 mg/dL (40-60); Potassium 3.5 mmol/L (3.5-5.1); Sodium 136 mmol/L (136-145); Thyroid Stimulating Hormone 1.608 uIU/mL (0.358-3.740); Total Protein 7.3 g/dL (6.4-8.2); Triglycerides 80 mg/dL (<=150)
== END 2024-01-02 11:00 | disposition home or self-care (01) ==
LOC: LAB 11:01
PROVIDERS: PCP Nurse Practitioner Family; Visit Provider Nurse Practitioner Family
DX: Z00.00 Encounter for general adult medical examination without abnormal findings (principal); N39.0 Urinary tract infection, site not specified
CPT/HCPCS: 36415; 80053; 80061; 81001; 82306; 83036; 83525; 83540; 84436; 84443; 84481; 85025; 87086; 87150; 87186

== ENCOUNTER 2024-01-05 12:41 | Outpatient (OUT) | payer BC, SELFPAY ==
--- NOTE | 2024-01-05 12:45 | MR_ITS ---
The [address] [address] Patient Name: CONSTANTINO CARDOSO MRN: [id number] date: 1970 Sex: F Assigned Patient Location: MRI Current Patient Location: MRI Accession/Order Number: [id number] Exam Date: 01/05/2024 12:50 Report Date: 01/05/2024 13:54 At the request of: STEPHANIE YOUSSEF Procedure: MR lumbar spine wo con MR lumbar spine wo con, 01/05/2024 12:50 PM EDT INDICATION: Low Back Pain M54.50 COMPARISON: Prior x-ray of the lumbar spine dated 11/24/2023 TECHNIQUE: Multiplanar, multisequential MRI images of lumbar spine were obtained without contrast. FINDINGS: For dictation purposes, the lowest complete disc space in the lumbar spine considered as L5-S1. There is normal physiologic lumbar lordosis with mild dextroscoliosis. The vertebral height is preserved. The conus medullaris is at the level of L1. No signal abnormality within the visualized spinal cord is noted. Right renal lesion with T2 prolongation not fully characterized by this study and statistically may suggest simple renal cyst. No neural foraminal narrowing or canal stenoses at the level of T12-L1 and L1-L2 is noted. At the level of L2-L3, there are disc bulge with mild bilateral neuroforaminal narrowing and no canal stenosis. At the level of L3-4, there are disc bulge with superimposed right neuroforaminal protrusion with mild right neuroforaminal narrowing and no canal stenosis. At the level of L4-5, there are disc bulge with mild right neuroforaminal narrowing and no canal stenosis. At the level of L5-S1, there are disc bulge with no neuroforaminal narrowing and no canal stenosis. The paraspinal muscles are unremarkable. MR/MR lumbar spine wo con IMPRESSION: Mild degenerative changes of lumbar spine in particular at L2-L4. Electronically authenticated by: MOOK ROUSE Date: 01/05/2024 13:54
== END 2024-01-05 12:42 | disposition home or self-care (01) ==
LOC: MRI 12:42
PROVIDERS: PCP Nurse Practitioner Family; Visit Provider Nurse Practitioner Family
DX: M54.50 Low back pain, unspecified (principal); M51.36 Other intervertebral disc degeneration, lumbar region
CPT/HCPCS: 72148

== ENCOUNTER 2024-01-06 11:18 | Outpatient (OUT) | payer BC, SELFPAY ==
--- NOTE | 2024-01-06 11:22 | US_ITS ---
[address] [address] Patient Name: CONSTANTINO CARDOSO MRN: [id number] date: 1970 Sex: F Assigned Patient Location: Current Patient Location: US Accession/Order Number: [id number] Exam Date: 01/06/2024 11:30 Report Date: 01/06/2024 12:11 At the request of: STEPHANIE YOUSSEF Procedure: US renal bladder EXAMINATION: US renal bladder HISTORY: Urinary Tract Infection N39.0 COMPARISON: No relevant comparison available. TECHNIQUE: Ultrasound examination was performed of the bladder. FINDINGS: Right Kidney: Normal in size, contour and cortical echotexture. The cortex measures 1.2 cm. Parapelvic cyst versus renal pyramid dilation in the midpole. No solid cortical mass or obstructing nephrolithiasis Height: 4.8 cm Length: 10.8 cm Width: 4.7 cm Left Kidney: Normal in size, contour and echotexture. The cortex measures 1.1 cm. No solid cortical mass or hydronephrosis Height: 5.3 cm Length: 11.2 cm Width: 4.4 cm Urinary bladder is normal. Prevoid volume 453 mL. Post void volume 11 mL Ureteral jets: Visualized bilaterally US/US renal bladder IMPRESSION: No acute abnormality Electronically authenticated by: CASSANDRA PUENTE Date: 01/06/2024 12:11
--- OUTSIDE RECORDS SUMMARY | 2024-01-06 11:25 | XMS_ITS | CCD ---
Author Organization [facility] Care Team Providers Care [employer] Professor Name Role Phone LEONA MORTENSEN Admitting Unavailable LEONA MORTENSEN Attending Unavailable KEVIN HERRERA Primary Care Unavailable KEVIN HERRERA Referring Unavailable LA Procedure Practitioner Unavailab ORESTES Cruz Surgeon Unavailable JUDI YOUSSEF Primary Care Physician DONI Youssef Primary Care Provider [phone] DO Conner Griffith Emergency Provider Jennie Ayon Unavailable MD Jennie Ayon Attending Provider [phone] JOHNATHAN RUDOLPH Attending Unavailibis RUDOLPH, DR [...] Unavailable MIKAEL, JUDI Consulting Unavailable LINDA [facility] Primary [facility] Provider DO Conner Griffith Emergency Provider DO Pete Thakkar Emergency Provider [facility] Primary Care Provider ClaireRafanoemi Unavailable Renny Gan Unavailable Mikael, Judi Joan Primary Care Unavailable Gladis, Conner M Admitting Unavailable Gladis, Conner M Attending Unavailable Mikael, [facility] Primary Care Unavailable Asaad, Imad Admitting Unavailable Asaleo, Imad Attending Unavailable Renny Gan Consulting Unavailabl e Mikael, [facility] Primary Care Unavailable Deann Montalvo Attending Unavailable Alahmad, Alaa Admitting Unavailable Mikael, [facility] Primary Care Unavailable GladisErnaed M Admitting Unavailable GladisErna salinased M Attending Unavailable Mikael, [facility] Primary Care Unavailable Pete Thakkar Admitting Unavailable Pete Thakkar Attending Unavailable Samuel Estrella Attending Unavailable Monique Marquez Attending Unavailable Anai REAGAN Attending Unavailable Zabrina Patton Attending Unavailable MARQUES BRADLEY Referring Unavailable PAVLOCK, [facility] Primary Care Unavailable PAVLOCK, [facility] Primary Care Unavailable KROHMARQUES Referring Unavailable KROH, MARQUES Patel Attending Unavailable IMER CHERRY Referring Unavailable [facility] Primary Care Unavailable PAVLOCK, [facility] Primary Care Unavailable KROH, MARQUES D Referring Unavailable KAITLYN TORRES Attending Unavailable KROH, MARQUES Patel Referring Unavailable PAVLOCK, [facility] Primary Care Unavailable MELISSA MONTALVO Attending Unavailable KROH, MARQUES Patel Referring Unavailable PAV[facility], [facility] Primary Care Unavailable SLY HEART Attending Unavailable KROHMARQUES Referring Unavailable [facility] Primary Care Unavailable BRENNEN SHAW Attending Unavailable Allergies Allergy Classification Reported Allergen(s) Allergy Type Date of Onset Reaction(s) Facility (5 sources) cyclobenzaprine; Translations: [CYCLOBENZAPRINE] Drug Allergy 04-28-20 Swelling of Lip/Tongue/Thr oat [facility] Repository (6 sources) Penicillins Drug allergy (disorder) 09-02-20 15 Rash [facility] (20 sources) cyclobenzaprine; Translations: [cyclobenzaprine] Drug Allergy 04-28-20 18 Pharyngeal swelling (finding), Swelling [facility] (20 sources) Penicillin; Translations: [penicillin] Drug Allergy 04-28-20 18 Swelling (morphologic abnormality), Swelling [facility] (8 sources) penicillAMINE Drug Allergy rash [facility] Other (2 sources) cyclobenzaprine Drug Allergy 03-23-20 16 [facility] Repository (1 source) traMADol Drug Allergy [facility] (1 source) traMADol Drug Allergy [facility] (1 source) cyclobenzaprine Drug Allergy 03-23-20 23 [facility] Repository (1 source) Penicillins Drug allergy (disorder) 03-23-20 23 [facility] Repository Medications Current Medications Medication Drug [...] day(s), # 120 cap(s), Refills(s) 11, Pharmacy: [facility]/pharmacy #[id number], 170, cm, 05/05/21 14:15:00 EDT, Height/Length Dosing, 83.1, kg, 05/05/21 14:15:00 EDT, Weight Dosing Start Date: 05/05/21 Stop Date: 04/30/22 Status: Ordered Start: 09-20-2020 take 2 capsules by m outh four times daily Bentyl 10 mg Cap 20 mg = 2 cap(s), Oral, QID, # 20 cap(s), Refills(s) 0, Pharmacy: [facility]/pharmacy #[id number], 170, cm, 09/20/20 16:03:00 EST, [...] day(s), # 90 tab(s), Refills(s) 0, Pharmacy: [facility]/pharmacy #[id number], 170, cm, 01/28/22 13:40:00 EDT, [...] pain, # 20 tab(s), Refills(s) 0, Pharmacy: [facility]/pharmacy #[id number], 170, cm, 02/19/23 0:56:00 EDT, [...] day(s), # 90 cap(s), Refills(s) 1, Pharmacy: [facility]/pharmacy #[id number], 170, cm, 04/14/22 14:53:00 EDT, [...] Daily, # 90 cap(s), Refills(s) 3, Pharmacy: [facility]/pharmacy #[id number], 170, cm, 01/11/22 9:17:00 EDT, Height/Length Dosing, 83, kg, 01/11/22 9:17:00 EDT, Weight Dosing Start Date: 01/11/22 Status: Ordered omeprazole 40 mg Cap-DR (1 source) Start: 2 End: 2 take 1 capsule by mouth once daily omeprazole 40 mg Cap-DR 40 mg = 1 cap(s), Oral, Daily, X 90 day(s), # 90 cap(s), Refills(s) 0, Pharmacy: [facility]/pharmacy #[id number], 170, cm, 01/28/22 13:40:00 EDT, [...] by mouth twice daily. polyethylene glycol 3350 84825 mg powder for oral solution (1 source) [...] Nausea/Vomiting, # 12 tab(s), Refills(s) 0, Pharmacy: [facility]/pharmacy #[id number], 170, cm, 09/20/20 16:03:00 EST, Height/Length Dosing, 87.5, kg, 09/20/20 16:03:00 EST, Weight Dosing Start Date: 09/20/20 Status: Ordered Completed/Discontinued Medications Medication Drug Class(es) Dates Sig (Normalized) Sig (Original) acetaminophen 325 mg / HYDROcodone bitartrate 5 mg oral tablet (6 sources) Opioid Agonist Start: 06-21-2019 End: 02-15-2023 take 1 tablet by mouth every six hours Hydrocodone-Acetami nophen ([place]) 5-325 mg Tablet Discontinued 1 TAB PO Q6H June 21, 2019 12:00am February 15, 2023 9:46am Start: 11-12-2018 End: 01-30-2019 take 1 tablet by mouth every four to six hours Hydrocodone-Acetaminophen ([place]) 5-325 mg tablet Discontinued 1 TAB PO [...] QID, # 120 tab(s), Refills(s) 0, Pharmacy: [facility]/pharmacy #[id number], 170, cm, 07/22/22 14:33:00 EST, [...] 05-10-2019 Chronic Other aftercare (1 source) 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 Author Type: Anesthesiologist Type: Anesthesia Postprocedure Evaluation Filed: 08/25/2023 5:35 PM Note Text: POST ANESTHESIA EVALUATION NOTE : 1970 Procedure Summary Date: 08/25/23 Room / Location: Gastroenterology Anesthesia Start: 1444 Anesthesia Stop: 155 Procedure: EGD - THERAPEUTIC, EUS, OR TUBE INTERVENTIONS Diagnosis: Gastroparesis (OTHER) Scheduled Providers: Marques Bradlye MD; Carlota Jeffrey MD; Vanessa Mcmillan APRN.HIGHWAY ENGINEER Responsible Provider: Carlota Jeffrey MD Anesthesia Type: [...] August 25, 2023 TIME: 5:35 PM CSN: [id number] Normal [facility] ANES PRE-OPon 08-25-2023 ANES PRE-OP HNO ID: [id number] Author: Carlota Jeffrey MD Service: ? Author [...] August 25, 2023 TIME: 11:46 AM CSN: [id number] Normal [facility] HISTORY PHYSICALon 3 HISTORY PHYSICAL HNO ID: [id number] Author: Gavi Bourgeois MD Service: General Surgery [...] DATE: August 25, 2023 TIME: 6:57 AM [facility] NURSING PROGon 08-25-2023 NURSING PROG HNO ID: [id number] Author: Melody Walter RN Service: Nursing Author [...] None Electronically Signed By: Melody Walter RN [facility] NURSING PROG HNO ID: [id number] Author: Pamela Osuna RN Service: ? Author [...] By: Pamela Navarro RN In Department: GASTROENTEROLOGY [facility] Magda 07-22-2023 [employer] [facility] [employer] Tele[facility] (Live[employer]) CONSTANTINO CARDOSO ([id number]) 1970 F Date Time Provider Department 07/22/23 [...] Encounter Status:Closed by EVELYN BLACK on 07/22/23 [facility] ANES POSTPROC EVALon 023 ANES POSTPROC EVAL HNO ID: [id number] Author: Sly Heart MD Service: ? Author [...] July 14, 2023 TIME: 12:26 PM CSN: [id number] Normal [facility] ANES PRE-OPon 07-14-2023 ANES PRE-OP HNO ID: [id number] Author: Sly Heart MD Service: ? Author [...] July 14, 2023 TIME: 9:11 AM CSN: [id number] Normal [facility] EGD - THERAPEUTIC, EUS, OR T UBE INTERVENTIONSon 07-14-2023 [facility] HISTORY PHYSICALon HISTORY PHYSICAL HNO ID: [id number] Author: Raúl Quintero MD Service: General Surgery [...] medications for this visit. REVIEW OF SYSTEMS: SUPPLY AND DISTRIBUTION MANAGER: Negative for CVA, Negative for TIA [...] July 14, 2023 TIME: 9:40 AM Normal [facility] NURSING PROGon 07-14-2023 NURSING PROG HNO ID: [id number] Author: Mónica Spaulding RN Service: Nursing Author Type: Registered Nurse Type: Nursing Progress Note Filed: 07/14/2023 11:21 AM Note Text: 1121: Dr. Mehrdad Heart paged : Patient Constantino Cardoso in post bed 10: Complaining of 10/10 abdominal pain (gas), mild nausea. Any further orders? Thanks! Mari Spaulding MOBILITY SPECIALIST Normal [facility] NURSING PROG HNO ID: [id number] Author: Mónica Spaulding RN Service: Nursing Author [...] Signed By: Mónica Spaulding RN BSN Normal [facility] NURSING PROG HNO ID: [id number] Author: Candace Jaramillo RN Service: ? Author [...] Candace Jaramillo RN In Department: GASTROENTEROLOGY Normal [facility] SURGICAL PATHOLOGYon 023 ADDENDUM 1: Normal [facility] Comment on above: Order Comment: Speci men Type: TISSUE SPECIMENOrdering Facility: [facility] Address: [address] [place] [address] Result Comment: Give n the background of chronic gastritis a Helicobacter pylori immunostain was performed on block A and is negative for Helicobacter pylori organisms. AEB 07/20/2023 Laboratory Developed Test (LDT) Disclaimer: Performance characteristics of immunohistochemical, immunofluorescent and chromogenic in-situ hybridization tests have been determined by the performing laboratory within [facility]???s Orestes Li Pathology and Laboratory Medicine [place] ([facility], [place], [facility], [facility], [facility], [facility], [facility], or [facility]) in a manner consistent with CLIA [...] at 9:30 AM Performed By: #### S ####[facility] LABCLIA [id number] [place] [address] [place] CASE REPORT Normal [facility] Comment on above: Order Comment: Speci men Type: TISSUE SPECIMENOrdering Facility: [facility] Address: [address] [place] [address] Result Comment: Surg [facility] Pathology Report Case: [id number] Authorizing Provider: Marques Bradley MD Collected: 07/14/2023 10:42 AM Ordering Location: Gastroenterology Received: 07/14/2023 07:34 PM Pathologist: Marilou Zacarias MD Specimen: STOMACH BIOPSY, R/O H.Pylori Performed By: #### S ####[facility] LABCLIA [id number] [address] [place] DIAGNOSIS COMMENT Immunohistochemical stain for Helicobacter pylori is pending and will be reported as an addendum. Normal [facility] Comment on above: Order Comment: Speci men Type: TISSUE SPECIMENOrdering Facility: [facility] Address: [address] [place] [address] Performed By: #### S ####[facility] LABCLIA [id number] [address] [place] FINAL DIAGNOSIS Normal [facility] Comment on above: Order Comment: Speci men Type: TISSUE SPECIMENOrdering Facility: [facility] Address: [address] [place] [address] Result Comment: Velma scott, biopsy: - Chronic inactive gastritis. See comment. AEB/javi 07/18/2023 Performed By: #### S ####[facility] LABCLIA [id number] [address] [place] FINAL PERFORMING LAB Normal [facility] Comment on above: Order Comment: Speci men Type: TISSUE SPECIMENOrdering Facility: [facility] Address: [address] [place] [address] Result Comment: Diag nostic interpretation performed at [facility], [facility] [place] [address] CLIA# [id number] Biomedical Engineer: Maurisio Ritchie M.D. Performed By: #### S ####[facility] LABIA [id number] [address] [place] GROSS DESCRIPTION [facility] Comment on above: Order Comment: Speci men Type: TISSUE SPECIMENOrdering Facility: [facility] Address: [address] [place] [address] Result Comment: A. S TOMACH BIOPSY Received in formalin are two pieces of hager, soft tissue aggregating to 0.5 x 0.2 x 0.2 cm. Totally submitted in one cassette. Two Gross examination performed at [facility], [address] [place] [address] July 14, 2023 11:10 PM Performed By: #### S ####[facility] LABIA [id number] [address] [place] Lipase Levelon 06-06-2023 Lipase [Catalytic activity/Vol] 33 U/L Normal 13-58 [facility] Comment on above: Performed By: #### 2 [id number] ####[facility] [id number] [place] [address] Magda 05-27-2023 [facility] Telephone (GENBMI) CONSTANTINO CARDOSO ([id number]) 1970 F Date Time Provider Department 05/27/23 [...] Status:Closed by EVELYN BLACK on 05/27/23 Normal [facility] GASTRIC EMPTYING SOLIDon 05-26-2023 NM GASTRIC [...] RATE OF GASTRIC EMPTYING OF SOLID MEAL. Customer Experience Intern: MELINDA Transcribe Date/Time: May 26 2023 11:18A Dictated by : SILVANO WELSH MD This examination was interpreted and the report reviewed and electronically signed by: SILVANO WELSH MD on May 26 2023 11:18AM EST [id number] Normal [facility] CNNURSEon 05-25-2023 CNNURSE Nurse Visit (GASTMN) CONSTANTINO CARDOSO ([id number]) 1970 F Date Time Provider Department 05/25/23 8:30 AM NURSE GI LAB 2 GASTMN During your visit today, we recorded the following information about you: Pedro Gonzalez LPN 05/25/2023 4:15 PM Signed Name: Constantino Cardoso [facility]#: [id number] Date: 05/25/2023 ESOPHAGEAL MANOMETRY TEST Indication: Nausea [...] .Pedro Gonzalez LPN Referring Provider: MARQUES BRADLEY [[id number]] Allergies As of Date: 05/25/2023 Noted Allergy Reaction FLEXERIL (CYCLOBENZAPRINE) 04/28/2018 7 - Swelling PENICILLIN 04/28/2018 7 - Swelling Date Reviewed: 05/06/2023 Reviewed by: Judy Michaels MA - Fully Assessed Reason for Visit: Procedure [88] Cmt: Manometry Esophageal Visit Diagnosis:Nausea [R11.0] Order(s):MANOMETRY ESOPHAGEAL [70827VOX] Order #: [id number] Prescriptions as of 05/25/2023 - dicyclomine (BENTYL) [...] obesity (HCC) [E66.01] 04/28/2018 Encounter Status:Closed by PEDOR GONZALEZ [facility]23 [facility] Tele[facility] (GENBMI) CONSTANTINO CARDOSO ([id number]) 1970 F Date Time Provider Department 05/16/23 [...] Encounter Status:Closed by EVELYN BLACK on 05/16/23 [facility] Yuko 05-06-2023 CNOV Office Visit (GENBMI ) CONSTANTINO CARDOSO ([id number]) 1970 F Date Time Provider Department 05/06/23 [...] for internal providers or letter via the [employer] Postal Service for external providers. Chief Complaint: [...] Time: 8:15 AM Referring Provider: IMER CHERRY [[id number]] Allergies As of Date: 05/06/2023 Noted Allergy Reaction (more content not included)... Normal [facility] CNPNon 05-02-2023 CNPN Telephone (GENBMI) CONSTANTINO CARDOSO ([id number]) 1970 F Date Time Provider Department 05/02/23 EVELYN BLACKBMI During your visit today, we recorded the following information about you: Evelyn Black, RN 05/04/2023 1:55 PM Addendum BMI SPECIALTY CARE COORDINATION TELEPHONE ENCOUNTER Chief complaint AND duration dysphagia. Type of procedure: hernia repair hiatal with Dr. MORTENSEN in [place] February of 2019. Sending OP notes Nursing assessment (subjective/objective) . pain in chest area and getting worse, hard to breathe c/o nausea and oral intolerance, using miralax for BM Went to [place] ED March 2023 who told her she needed a stent in her heart..but her c/o were difficulty swallowing and sent pt home and referred her to [facility] and was admitted for almost a week [...] Encounter Status:Closed by EVELYN BLACK on 05/02/23 [facility] C[facility] Telephone (GENBMI) CONSTANTINO CARDOSO ([id number]) 1970 F Date Time Provider Department 04/26/23 [...] Encounter Status:Closed by EVELYN BLACK on 04/26/23 [facility] CNPN Telephone (GENBMI) CONSTANTINO CARDOSO ([id number]) 1970 F Date Time Provider Department 04/18/23 [...] Ma - Fully Assessed Reason for Visit: [employer] [facility] - Other [3602] Prescriptions as of 04/18/2023 [...] Encounter Status:Closed by EVELYN BLACK on 04/18/23 [facility] Magda 04-07-2023 CNPN Telephone (GASTSP) CONSTANTINO CARDOSO ([id number]) 1970 F Date Time Provider Department 04/07/23 GUILLERMO MARTINEZ [facility] During your visit today, we recorded [...] Encounter Status:Closed by YANCY LOPEZ on 04/07/23 [facility] NM gastric emptying study 07-27-2023 NM gastric emptying study [facility] Main [place] [address] [place] [address] Nuclear Medicine Report Signed Patient: Constantino Cardoso MR#: [id number] : 1970 Acct:[id number] Age/Sex: 52 / F ADM Date: 03/26/23 Loc: Room: [address] [place] [address] Type: ADM IN Attending Dr: Deann Montalvo [...] Samuel Stone M.D.03/31/2023 10:03 AM Dictation Location: [place] [address] Transcribed By: [facility] 03/31/23 1003 Dictated By: Samuel Stone DO 03/31/23 0956 Signed By: 03/31/23 1003 [facility] Comprehensive Metabolic Pane miranda 03-29-2023 Albumin [Mass/Vol] 3.8 g/dL Normal 3.5-5.7 [facility] Comment on above: Performed By: #### C BCTED, CMP #### [facility] [address] [place] [address] [place] Albumin/Globulin [Mass ratio] 1.4 {ratio} Normal [facility] Comment on above: Performed By: #### C BCNO, CMP #### [facility] [address] [place] [id number] [place] ALP [Catalytic activity/Vol] 102 U/L Normal 34-104 [facility] Comment on above: Performed By: #### C BCNO, CMP #### [facility] [address] [place] [id number] [place] ALT [Catalytic activity/Vol] 10 U/L Normal 7-52 [facility] Comment on above: Performed By: #### C BCNO, CMP #### [facility] [address] [place] [address] [place] Anion gap [Moles/Vol] 10.4 mmol/L Normal 6.0-15.0 [facility] Comment on above: Performed By: #### C BCNO, CMP #### [facility] [address] [place] [address] [place] AST [Catalytic activity/Vol] 14 U/L Normal 13-39 [facility] Comment on above: Performed By: #### C BCNO, CMP #### [facility] [address] [place] [address] [place] Bilirubin [Mass/Vol] 0.5 mg/dL Normal 0.3-1.0 [facility] Comment on above: Performed By: #### C BCNO, CMP #### [facility] [address] [place] [address] [place] Calcium [Mass/Vol] 9.0 mg/dL Normal 8.6-10.3 [facility] Comment on above: Performed By: #### C BCTED, CMP #### [facility] [address] [place] [address] [place] Chloride [Moles/Vol] 103 mmol/L Normal 98-107 [facility] Comment on above: Performed By: #### C BCNO, CMP #### [facility] [address] [place] [address] [place] CO2 [Moles/Vol] 28.4 mmol/L Normal 21.0-31.0 [facility] Comment on above: Performed By: #### C BCNO, CMP #### [facility] [address] [place] [address] [place] Creatinine [Mass/Vol] 0.67 mg/dL Normal 0.60-1.20 [facility] Comment on above: Performed By: #### C BCNO, CMP #### [facility] [address] [place] [address] [place] Creatinine Clr Calc Pharmacy 106.18 Normal [facility] Comment on above: Result Comment: PERF ORMED BY: [facility] [address] [place] [address] PATHOLOGIST MIXER OPERATOR VACUUM PAN SALT ROOSEVELT KEYES M.D. Performed By: #### C STELLA, CMP #### [facility] [address] [place] [address] [place] GFR/1.73 sq M.predicted MDRD (S/P/Bld) [Vol rate/Area] mL/min/{1.73_m2} [facility] Comment on above: Performed By: #### C STELLA, CMP #### [facility] [address] Globulin (S) [Mass/Vol] 2.7 g/dL [facility] Comment on above: Performed By: #### C STELLA, CMP #### [address] Glucose [Mass/Vol] 96 mg/dL Normal 70-100 [facility] Comment on above: Result Comment: [facility] Glucose Reference Range is dependent on time and content of last meal. Glucose of more than 200 mg/dL in a nonstressed, ambulatory subject supports the diagnosis of Diabetes Mellitus. ADA recommended reference range Performed By: #### C STELLA, CMP #### [place] [address] [place] Potassium [Moles/Vol] 3.8 mmol/L Normal 3.5-5.1 [facility] Comment on above: Performed By: #### C STELLA, CMP #### [place] [address] [place] Protein [Mass/Vol] 6.5 g/dL Normal 6.4-8.9 [facility] Comment on above: Performed By: #### C STELLA, CMP #### [facility] [address] [place] [address] [place] Sodium [Moles/Vol] 138 mmol/L Normal 136-145 [facility] Comment on above: Performed By: #### C BCTED, CMP #### [facility] [address] [place] [address] [place] Urea nitrogen [Mass/Vol] 8 mg/dL Normal 7-25 [facility] Comment on above: Performed By: #### C BCNO, [facility] #### [facility] [address] [place] [id number] [facility] [place] esophagus ugion 3 [place] esophagus ugi [facility] Main [place] [address] [place] [address] Fluoroscopy Report Signed Patient: Constantino Cardoso MR#: [id number] : 1970 Acct:[id number] Age/Sex: 52 / F ADM Date: 03/26/23 Loc: Room: [address] [place] [address] Type: ADM IN Attending Dr: Deann Montalvo MD Copies to: MD Deann Blue MD Ordering Provider: Renny Gan MD Date of Service: 03/29/23 FL/FL esophagus ugi: NAUSEA DOUBLE CONTRAST UPPER GI SERIES CLINICAL HISTORY: Nausea vomiting. History of Ramiro fundoplication. COMPARISON: None TECHNIQUE: Double contrast upper GI series was performed. Cumulative Air Kerma in mGy: 305.03 mGy FINDINGS: Molder Bench image demonstrates no acute findings. The esophagus [...] Bateman Jr., D.O.03/29/2023 1:23 PM Dictation Location: [place] [address] Transcribed By: [facility] 03/29/23 1323 Dictated By: Tiburcio Bateman Jr, DO 03/29/23 1317 Signed By: 03/29/23 1323 Normal [facility] Hemogram CBC Without Diffon 03-29-2023 Erythrocyte distribution width (RBC) [Ratio] 13.4 % Normal 11.9-15.3 [facility] Comment on above: Performed By: #### C STELLA, CMP #### [facility] [address] Hematocrit (Bld) [Volume fraction] 35.4 % Normal 34.0-46.4 [facility] Comment on above: Performed By: #### C STELLA, CMP #### [address] Hemoglobin (Bld) [Mass/Vol] 12.0 g/dL Normal 11.8-15.4 [facility] Comment on above: Performed By: #### C STELLA, CMP #### [address] MCH (RBC) [Entitic mass] 29.2 pg Normal 24.7-34.3 [facility] Comment on above: Performed By: #### C STELLA, CMP #### [address] MCV (RBC) [Entitic vol] 86.0 fL Normal 80-100 [facility] Comment on above: Performed By: #### C STELLA, CMP #### [address] Mean Corpuscular HGB Conc 33.9 g/dL Normal 32.0-35.0 [facility] Comment on above: Performed By: #### C STELLA, CMP #### [address] Platelet mean volume (Bld) [Entitic vol] 7.6 fL Normal 6.3-10.7 [facility] Comment on above: Result Comment: PERF ORMED BY: [place] [address] PATHOLOGIST MIXER OPERATOR VACUUM PAN SALT ROOSEVELT KEYES M.D. Performed By: #### C STELLA, CMP #### [address] Platelets (Bld) [#/Vol] 288 10*3/uL Normal 150-450 [facility] Comment on above: Performed By: #### C STELLA, CMP #### [facility] [address] RBC (Bld) [#/Vol] 4.11 10*6/uL Normal 3.60-5.00 [facility] Comment on above: Performed By: #### C STELLA, CMP #### [facility] [address] [place] [id number] [facility] WBC (Bld) [#/Vol] 6.5 10*3/uL Normal 3.8-11.6 [facility] Comment on above: Performed By: #### C STELLA, CMP #### [facility] [address] XR abdomen min 2Von 03-28-20 XR abdomen min 2V [facility] Main [place] [address] [place] [address] XRay Report Signed Patient: Constantino Cardoso MR#: [id number] : 1970 Acct:[id number] Age/Sex: 52 / F ADM Date: 03/26/23 Loc: Room: [address] [place] [address] Type: ADM IN Attending Dr: Deann Montalvo [...] Bateman Jr., D.O.03/28/2023 12:24 PM Dictation Location: [place] [address] Transcribed By: [facility] 03/28/23 1224 Dictated By: Tiburcio Bateman Jr, DO 03/28/23 1223 Signed By: 03/28/23 1224 Normal [facility] Complete Blood Count Auto Di ffon 03-27-2023 Basophils (Bld) [#/Vol] 0.0 10*3/uL Normal 0.0-0.2 [facility] Comment on above: Result Comment: PERF ORMED BY: [place] [address] PATHOLOGIST MIXER OPERATOR VACUUM PAN SALT ROOSEVELT KEYES M.D. Performed By: #### C BC #### [address] Basophils/100 WBC (Bld) 0.5 % Normal . [facility] Comment on above: Performed By: #### C BC #### [address] Eosinophils (Bld) [#/Vol] 0.2 10*3/uL Normal 0.0-0.45 [facility] Comment on above: Performed By: #### C BC #### [address] Eosinophils/100 WBC (Bld) 4.7 % Normal . [facility] Comment on above: Performed By: #### C BC #### [address] Erythrocyte distribution width (RBC) [Ratio] 13.6 % Normal 11.9-15.3 [facility] Comment on above: Performed By: #### C BC #### [address] Hematocrit (Bld) [Volume fraction] 34.1 % Normal 34.0-46.4 [facility] Comment on above: Performed By: #### C BC #### [address] Hemoglobin (Bld) [Mass/Vol] 11.4 g/dL Low 11.8-15.4 [facility] Comment on above: Performed By: #### C BC #### [address] Lymphocytes (Bld) [#/Vol] 1.3 10*3/uL Normal 1.00-4.8 [facility] Comment on above: Performed By: #### C BC #### [address] Lymphocytes/100 WBC (Bld) 32.8 % Normal . [facility] Comment on above: Performed By: #### C BC #### [address] MCH (RBC) [Entitic mass] 28.9 pg Normal 24.7-34.3 [facility] Comment on above: Performed By: #### C BC #### [address] MCV (RBC) [Entitic vol] 86.0 fL Normal 80-100 [facility] Comment on above: Performed By: #### C BC #### [address] Mean Corpuscular HGB Conc 33.6 g/dL Normal 32.0-35.0 [facility] Comment on above: Performed By: #### C BC #### [address] Monocytes (Bld) [#/Vol] 0.3 10*3/uL Normal 0.0-0.8 [facility] Comment on above: Performed By: #### C BC #### [address] Monocytes/100 WBC (Bld) 7.7 % Normal . [facility] Comment on above: Performed By: #### C BC #### [address] Neutrophils (Bld) [#/Vol] 2.1 10*3/uL Normal 1.8-7.7 [facility] Comment on above: Performed By: #### C BC #### [address] Neutrophils/100 WBC (Bld) 54.3 % Normal . [facility] Comment on above: Performed By: #### C BC #### [facility] [address] NRBC% 0.1 /100{WBC} Normal 0-0.5 [facility] Comment on above: Performed By: #### C BC #### [facility] [address] Platelet mean volume (Bld) [Entitic vol] 7.8 fL Normal 6.3-10.7 [facility] Comment on above: Performed By: #### C BC #### [address] Platelets (Bld) [#/Vol] 291 10*3/uL Normal 150-450 [facility] Comment on above: Performed By: #### C BC #### [address] RBC (Bld) [#/Vol] 3.97 10*6/uL Normal 3.60-5.00 [facility] Comment on above: Performed By: #### C BC #### [address] WBC (Bld) [#/Vol] 3.9 10*3/uL Normal 3.8-11.6 [facility] Comment on above: Performed By: #### C BC #### [address] Comprehensive Metabolic Pane miranda 03-27-2023 Albumin [Mass/Vol] 3.5 g/dL Normal 3.5-5.7 [facility] Comment on above: Performed By: #### H EPATIC, CBC, BMP, LIPASE #### [address] Albumin/Globulin [Mass ratio] 1.4 {ratio} Normal [facility] Comment on above: Performed By: #### H EPATIC, CBC, BMP, LIPASE #### [address] ALP [Catalytic activity/Vol] 91 U/L Normal 34-104 [facility] Comment on above: Performed By: #### H EPATIC, CBC, BMP, LIPASE #### [facility] [address] [place] [address] ALT [Catalytic activity/Vol] 10 U/L Normal 7-52 [facility] Comment on above: Performed By: #### H EPATIC, CBC, BMP, LIPASE #### [facility] [address] [place] [address] Anion gap [Moles/Vol] 6.9 mmol/L Normal 6.0-15.0 [facility] Comment on above: Performed By: #### H EPATIC, CBC, BMP, LIPASE #### [address] AST [Catalytic activity/Vol] 13 U/L Normal 13-39 [facility] Comment on above: Performed By: #### H EPATIC, CBC, BMP, LIPASE #### [address] Bilirubin [Mass/Vol] 0.5 mg/dL Normal 0.3-1.0 [facility] Comment on above: Performed By: #### H EPATIC, CBC, BMP, LIPASE #### [address] Calcium [Mass/Vol] 8.6 mg/dL Normal 8.6-10.3 [facility] Comment on above: Performed By: #### H EPATIC, CBC, BMP, LIPASE #### [address] Chloride [Moles/Vol] 109 mmol/L High 98-107 [facility] Comment on above: Performed By: #### H EPATIC, CBC, BMP, LIPASE #### [facility] [address] [place] [address] CO2 [Moles/Vol] 28.9 mmol/L Normal 21.0-31.0 [facility] Comment on above: Performed By: #### H EPATIC, CBC, BMP, LIPASE #### [address] Creatinine [Mass/Vol] 0.72 mg/dL Normal 0.60-1.20 [facility] Comment on above: Performed By: #### H EPATIC, CBC, BMP, LIPASE #### [facility] [address] Creatinine Clr Calc Pharmacy 97.02 [facility] Comment on above: Performed By: #### H EPATIC, CBC, BMP, LIPASE #### [facility] [address] [place] [address] GFR/1.73 sq M.predicted MDRD (S/P/Bld) [Vol rate/Area] mL/min/{1.73_m2} [facility] Comment on above: Performed By: #### H EPATIC, CBC, BMP, LIPASE #### [address] Globulin (S) [Mass/Vol] 2.5 g/dL [facility] Comment on above: Performed By: #### H EPATIC, CBC, BMP, LIPASE #### [address] Glucose [Mass/Vol] 104 mg/dL High 70-100 [facility] Comment on above: Result Comment: [facility] Glucose Reference Range is dependent on time and content of last meal. Glucose of more than 200 mg/dL in a nonstressed, ambulatory subject supports the diagnosis of Diabetes Mellitus. ADA recommended reference range Performed By: #### H EPATIC, CBC, BMP, LIPASE #### [address] Potassium [Moles/Vol] 3.8 mmol/L Normal 3.5-5.1 [facility] Comment on above: Performed By: #### H EPATIC, CBC, BMP, LIPASE #### [address] Protein [Mass/Vol] 6.0 g/dL Low 6.4-8.9 [facility] Comment on above: Performed By: #### H EPATIC, CBC, BMP, LIPASE #### [place] [id number] [place] Sodium [Moles/Vol] 141 mmol/L Normal 136-145 [facility] Comment on above: Performed By: #### H EPATIC, CBC, BMP, LIPASE #### [facility] [address] [place], [place] [id number] [facility] Urea nitrogen [Mass/Vol] 10 mg/dL Normal 7-25 [facility] Comment on above: Performed By: #### H EPATIC, CBC, BMP, LIPASE #### [place] [id number] [facility] Lipaseon 03-27-2023 Lipase [Catalytic activity/Vol] 14.0 U/L Normal 11.0-82.0 [facility] Comment on above: Result Comment: PERF ORMED BY: [place] [address] PATHOLOGIST MIXER OPERATOR VACUUM PAN SALT ROOSEVELT KEYES M.D. Performed By: #### H EPATIC, CBC, BMP, LIPASE #### [address] Magnesiumon 03-27-2023 Magnesium [Mass/Vol] 1.8 mg/dL Low 1.9-2.7 [facility] Comment on above: Performed By: #### H EPATIC, CBC, BMP, LIPASE #### [address] angio abdomen pelvison CT angio abdomen pelvis [facility] Main [place] [address] [place] [address] CT Scan Report Signed Patient: Constantino Cardoso MR#: [id number] : 1970 Acct:[id number] Age/Sex: 52 / F ADM Date: 03/26/23 Loc: Room: [address] [place] [address] Type: ADM IN Attending Dr: Raf Steward [...] Nora Benites M.D.03/26/2023 9:41 AM Dictation Location: [place] [address] Transcribed By: [facility] 03/26/2341 Dictated By: Nora Benites II, MD 03/26/23 0935 Signed By: 03/26/23 0941 [facility] CT angio cheston 03-26-2023 CT angio chest [facility] Main [place] [address] [place] [address] CT Scan Report Signed Patient: Constantino Cardoso MR#: [id number] : 1970 Acct:[id number] Age/Sex: 52 / F ADM Date: 03/26/23 Loc: Room: 6Z6913-5 Type: ADM IN Attending Dr: Raf Steward [...] Nora Benites M.D.03/26/2023 9:34 AM Dictation Location: [place] [address] Transcribed By: [facility] 03/26/23933 Dictated By: Nora Benites II, MD 03/26/23929 Signed By: 03/26/23933 [facility] Comprehensive Metabolic Pane miranda 03-26-2023 Albumin [Mass/Vol] 3.8 g/dL Normal 3.5-5.7 [facility] Comment on above: Performed By: #### P ORS #### [facility] [address] [place] [address] Albumin/Globulin [Mass ratio] 1.6 {ratio} Normal [facility] Comment on above: Performed By: #### P ORS #### [address] ALP [Catalytic activity/Vol] 105 U/L High 34-104 [facility] Comment on above: Performed By: #### P ORS #### [address] ALT [Catalytic activity/Vol] 11 U/L Normal 7-52 [facility] Comment on above: Performed By: #### P ORS #### [address] Anion gap [Moles/Vol] 9.7 mmol/L Normal 6.0-15.0 [facility] Comment on above: Performed By: #### P ORS #### [facility] [address] [place] [address] AST [Catalytic activity/Vol] 14 U/L Normal 13-39 [facility] Comment on above: Performed By: #### P ORS #### [address] Bilirubin [Mass/Vol] 0.4 mg/dL Normal 0.3-1.0 [facility] Comment on above: Performed By: #### P ORS #### [address] Calcium [Mass/Vol] 8.6 mg/dL Normal 8.6-10.3 [facility] Comment on above: Performed By: #### P ORS #### [facility] [address] [place] [address] [place] Chloride [Moles/Vol] 107 mmol/L Normal 98-107 [facility] Comment on above: Performed By: #### P ORS #### [address] CO2 [Moles/Vol] 25.3 mmol/L Normal 21.0-31.0 [facility] Comment on above: Performed By: #### P ORS #### [facility] [address] Creatinine [Mass/Vol] 0.76 mg/dL Normal 0.60-1.20 [facility] Comment on above: Performed By: #### P ORS #### [facility] [address] [place] [address] [place] Creatinine Clr Calc Pharmacy 92.46 [facility] Comment on above: Performed By: #### P ORS #### [place] [address] [place] GFR/1.73 sq M.predicted MDRD (S/P/Bld) [Vol rate/Area] mL/min/{1.73_m2} [facility] Comment on above: Performed By: #### P ORS #### [address] Globulin (S) [Mass/Vol] 2.4 g/dL [facility] Comment on above: Performed By: #### P ORS #### [address] Glucose [Mass/Vol] 122 mg/dL High 70-100 [facility] Comment on above: Result Comment: [place] Glucose Reference Range is dependent on time and content of last meal. Glucose of more than 200 mg/dL in a nonstressed, ambulatory subject supports the diagnosis of Diabetes Mellitus. ADA recommended reference range Performed By: #### P ORS #### [address] Potassium [Moles/Vol] 4.0 mmol/L Normal 3.5-5.1 [facility] Comment on above: Performed By: #### P ORS #### [address] Protein [Mass/Vol] 6.2 g/dL Low 6.4-8.9 [facility] Comment on above: Performed By: #### P ORS #### [place] [address] [place] Sodium [Moles/Vol] 138 mmol/L Normal 136-145 [facility] Comment on above: Performed By: #### P ORS #### [address] Urea nitrogen [Mass/Vol] 12 mg/dL Normal 7-25 [facility] Comment on above: Performed By: #### P ORS #### [address] Drug Screen,Urineon 03-26-20 23 Amphetamine Screen,Urine Negative Normal Negative [facility] Comment on above: Performed By: #### H EPATIC, CBC, BMP, LIPASE #### [address] Barbiturate Screen,Urine Negative Normal Negative [facility] Comment on above: Performed By: #### H EPATIC, CBC, BMP, LIPASE #### [address] Benzodiazepines Screen,Urine Negative Normal Negative [facility] Comment on above: Performed By: #### H EPATIC, CBC, BMP, LIPASE #### [address] Cannabinoid Screen,Urine Negative Normal Negative [facility] Comment on above: Result Comment: Thes e are unconfirmed results and should not be used for legal purposes. Drug Cut-Off Concentration: AMPH 1000 ng/mL HAWA 200 ng/mL ELSA 200 ng/mL COCM 300 ng/mL OP 300 ng/mL PCP 25 ng/mL THC 20 ng/mL PERFORMED BY: [place] [address] PATHOLOGIST MIXER OPERATOR VACUUM PAN SALT ROOSEVELT KEYES M.D. Performed By: #### H EPATIC, CBC, BMP, LIPASE #### [address] Cocaine Screen,Urine Negative Normal Negative [facility] Comment on above: Performed By: #### H EPATIC, CBC, BMP, LIPASE #### [address] Opiate Screen,Urine Positive High Negative [facility] Comment on above: Performed By: #### H EPATIC, CBC, BMP, LIPASE #### [facility] [address] Phencyclidine Screen,Urine Negative Normal Negative [facility] Comment on above: Performed By: #### H EPATIC, CBC, BMP, LIPASE #### [facility] [address] echo transthoracicon [facility] echo transthoracic [facility] Main [place] [address] [place] [address] Echocardiogram Signed Patient: Constantino Cardoso MR#: [id number] : 1970 Acct:[id number] Age/Sex: 52 / F ADM Date: 03/26/23 Loc: Room: [address] [place] [address] Type: ADM IN Attending Dr: Raf Steward MD Ordering Provider: Ron Fair MD Date of Service: 03/26/23 [facility] echo transthoracic: chest pain [...] Castro MD, [facility] 03/26/23 1148 Normal [facility] Hepatic Panelon 03-26-2023 Bilirubin,Indirect 0.3 mg/dL Normal [facility] Comment on above: Performed By: #### P ORS #### [address] Bilirubin.indirect [Mass/Vol] 0.10 mg/dL Normal 0.03-0.18 [facility] Comment on above: Performed By: #### P ORS #### [facility] [address] [place] [address] Lactic Acidon 03-26-2023 Lactate [Moles/Vol] 0.5 mmol/L Normal 0.5-2.2 [facility] Comment on above: Result Comment: PERF ORMED BY: [place] [address] PATHOLOGIST MIXER OPERATOR [employer]AC[employer]UM PAN SALT ROOSEVELT KEYES M.D. Performed By: #### L ACTIC, HEPATIC, LIPASE, CMP, HS TROP, MG #### [facility] [address] [place] [address] Lipaseon 03-26-2023 Lipase [Catalytic activity/Vol] 8.0 U/L Low 11.0-82.0 [facility] Comment on above: Result Comment: PERF ORMED BY: [place] [address] PATHOLOGIST MIXER OPERATOR VAC[employer]UM PAN SALT ROOSEVELT KEYES M.D. Performed By: #### P ORS #### [facility] [address] [place] [address] Magnesiumon 03-26-2023 Magnesium [Mass/Vol] 1.8 mg/dL Low 1.9-2.7 [facility] Comment on above: Performed By: #### P ORS #### [facility] [address] [place] [address] [place] Porphyrins,Stoolon 3 Porphyrins,Stool Normal [facility] Comment on above: Result Comment: See report. Scanned copy available in EMR. PERFORMED BY: [place] [address] PATHOLOGIST MIXER OPERATOR VACUUM PAN SALT ROOSEVELT KEYES M.D. Performed By: #### P ORS #### [facility] [address] [place] [address] Troponin I High Sensitivityo n 03-26-2023 Troponin I High Sensitivity 13.8 pg/mL Normal 0.0-15.0 [facility] Comment on above: Result Comment: PERF ORMED BY: [place] [address] PATHOLOGIST MIXER OPERATOR V[employer]UM PAN SALT ROOSEVELT KEYES M.D. Performed By: #### H EPATIC, CBC, BMP, LIPASE #### [facility] [address] [place] [address] Troponin I High Sensitivity 14.1 pg/mL Normal 0.0-15.0 [facility] Comment on above: Result Comment: PERF ORMED BY: [place] [address] PATHOLOGIST MIXER OPERATOR VACUUM PAN SALT ROOSEVELT KEYES M.D. Performed By: #### P ORS #### [facility] [address] [place] [address] Alanine aminotransferase [En zymatic activity/volume] in Serum or PlasmaOrdered By: Pete Thakkar on 03-23-2023 ALT [Catalytic activity/Vol] 11 U/L 7- [facility] Albumin [Mass/volume] in Ser um or Plasma by Bromocresol green (BCG) dye binding methoOrdered By: Pete Thakkar on 03-23-2023 Albumin BCG dye [Mass/Vol] 4.1 g/dL 3.5-5.7 [facility] Alkaline phosphatase [Enzyma tic activity/volume] in Serum or PlasmaOrdered By: Pete Thakkar on 03-23-2023 ALP [Catalytic activity/Vol] 115 U/L 34-104 [facility] Aspartate aminotransferase [ Enzymatic activity/volume] in Serum or PlasmaOrdered By: Pete Thakkar on 03-23-2023 AST [Catalytic activity/Vol] 15 U/L 13-39 [facility] Automated erythrocytes count in urine sediment (number/area)Ordered By: Pete Thakkar on 03-23-2023 RBC Auto (Urine sed) [#/Area] 0-1 [HPF] 0-4 [facility] Automated leukocytes count i n urine sediment (number/area)Ordered By: Pete Thakkar on 03-23-2023 WBC Auto (Urine sed) [#/Area] 0-1 [HPF] 0-4 [facility] Basic Metabolic Panelon 03-05 Anion gap [Moles/Vol] 10.1 mmol/L Normal 6.0-15.0 [facility] Comment on above: Performed By: #### H EPATIC, CBC, BMP, LIPASE #### [facility] [address] Calcium [Mass/Vol] 9.0 mg/dL Normal 8.6-10.3 [facility] Comment on above: Performed By: #### H EPATIC, CBC, BMP, LIPASE #### [facility] [address] [place] [address] [place] Chloride [Moles/Vol] 111 mmol/L High 98-107 [facility] Comment on above: Performed By: #### H EPATIC, CBC, BMP, LIPASE #### [facility] [address] [place] [address] [place] CO2 [Moles/Vol] 24.5 mmol/L Normal 21.0-31.0 [facility] Comment on above: Performed By: #### H EPATIC, CBC, BMP, LIPASE #### [facility] [address] Creatinine [Mass/Vol] 0.72 mg/dL Normal 0.60-1.20 [facility] Comment on above: Performed By: #### H EPATIC, CBC, BMP, LIPASE #### [facility] [address] Creatinine Clr Calc Pharmacy 105.27 [facility] Comment on above: Performed By: #### H EPATIC, CBC, BMP, LIPASE #### [address] GFR/1.73 sq M.predicted MDRD (S/P/Bld) [Vol rate/Area] mL/min/{1.73_m2} [facility] Comment on above: Performed By: #### H EPATIC, CBC, BMP, LIPASE #### [address] Glucose [Mass/Vol] 79 mg/dL Normal 70-100 [facility] Comment on above: Result Comment: [facility] Glucose Reference Range is dependent on time and content of last meal. Glucose of more than 200 mg/dL in a nonstressed, ambulatory subject supports the diagnosis of Diabetes Mellitus. ADA recommended reference range Performed By: #### H EPATIC, CBC, BMP, LIPASE #### [address] Potassium [Moles/Vol] 3.6 mmol/L Normal 3.5-5.1 [facility] Comment on above: Performed By: #### H EPATIC, CBC, BMP, LIPASE #### [address] Sodium [Moles/Vol] 142 mmol/L Normal 136-145 [facility] Comment on above: Performed By: #### H EPATIC, CBC, BMP, LIPASE #### [address] Urea nitrogen [Mass/Vol] 24 mg/dL Normal 7-25 [facility] Comment on above: Performed By: #### H EPATIC, CBC, BMP, LIPASE #### [address] Basophils Auto (Bld) [#/Vol] Ordered By: Pete Thakkar on 03-23-2023 Basophils (Bld) [#/Vol] 0.1 10*3/uL 0.0-0.2 [facility] Basophils/100 WBC Auto (Bld) Ordered By: Pete Thakkar on 03-23-2023 Basophils/100 WBC (Bld) 1.0 % . [facility] Bilirubin Test strip Ql (U)O rdered By: Pete Thakkar on 03-23-2023 Bilirubin Ql (U) Negative Negative [facility] Bilirubin.direct [Mass/volum e] in Serum or PlasmaOrdered By: Pete Thakkar on 03-23-2023 Bilirubin.direct [Mass/Vol] 0.10 mg/dL 0.03-0.18 [facility] Bilirubin.total [Mass/volume ] in Serum or PlasmaOrdered By: Pete Thakkar on 03-23-2023 Bilirubin [Mass/Vol] 0.3 mg/dL 0.3-1.0 [facility] CT abdomen pelvis w conon CT abdomen pelvis w con [facility] [place] [address] CT Scan Report Signed Patient: Constantino Cardoso MR#: [id number] : 1970 Acct:[id number] Age/Sex: 52 / F ADM Date: 03/23/23 Loc: ER Room: Type: [facility] ER Attending Dr: Copies to: Pete [...] Columba Domínguez M.D.03/23/2023 7:47 AM Dictation Location: [place] [address] Transcribed By: ANDREA 03/23/23 0747 Dictated By: Columba Domínguez MD 03/23/23 0742 Signed By: 03/23/2347 Normal [facility] Calcium [Mass/volume] in Ser um or PlasmaOrdered By: Pete Thakkar on 03-23-2023 Calcium [Mass/Vol] 9.0 mg/dL 8.6-10.3 [facility] Carbon dioxide, total [Moles /volume] in Serum or PlasmaOrdered By: Pete Thakkar on 03-23-2023 CO2 [Moles/Vol] 24.5 mmol/L 21.0-31.0 [facility] Chloride [Moles/volume] in S cristine or PlasmaOrdered By: Pete Thakkar on 03-23-2023 Chloride [Moles/Vol] 111 mmol/L 98-107 [facility] Color Auto (U)Ordered By: Shoaib Thakkar on 03-23-2023 Color (U) Yellow Yellow [facility] Complete Blood Count Auto Di ffon 03-23-2023 Basophils (Bld) [#/Vol] 0.1 10*3/uL Normal 0.0-0.2 [facility] Comment on above: Result Comment: PERF ORMED BY: [place] [address] PATHOLOGIST MIXER OPERATOR VACUUM PAN SALT ROOSEVELT KEYES M.D. Performed By: #### H EPATIC, CBC, BMP, LIPASE #### [address] Basophils/100 WBC (Bld) 1.0 % Normal . [facility] Comment on above: Performed By: #### H EPATIC, CBC, BMP, LIPASE #### [address] Eosinophils (Bld) [#/Vol] 0.3 10*3/uL Normal 0.0-0.45 [facility] Comment on above: Performed By: #### H EPATIC, CBC, BMP, LIPASE #### [address] Eosinophils/100 WBC (Bld) 5.0 % Normal . [facility] Comment on above: Performed By: #### H EPATIC, CBC, BMP, LIPASE #### [address] Erythrocyte distribution width (RBC) [Ratio] 13.6 % Normal 11.9-15.3 [facility] Comment on above: Performed By: #### H EPATIC, CBC, BMP, LIPASE #### [address] Hematocrit (Bld) [Volume fraction] 35.7 % Normal 34.0-46.4 [facility] Comment on above: Performed By: #### H EPATIC, CBC, BMP, LIPASE #### [address] Hemoglobin (Bld) [Mass/Vol] 12.0 g/dL Normal 11.8-15.4 [facility] Comment on above: Performed By: #### H EPATIC, CBC, BMP, LIPASE #### [address] Lymphocytes (Bld) [#/Vol] 2.3 10*3/uL Normal 1.00-4.8 [facility] Comment on above: Performed By: #### H EPATIC, CBC, BMP, LIPASE #### [address] Lymphocytes/100 WBC (Bld) 36.1 % Normal . [facility] Comment on above: Performed By: #### H EPATIC, CBC, BMP, LIPASE #### [address] MCH (RBC) [Entitic mass] 29.2 pg Normal 24.7-34.3 [facility] Comment on above: Performed By: #### H EPATIC, CBC, BMP, LIPASE #### [address] MCV (RBC) [Entitic vol] 86.7 fL Normal 80-100 [facility] Comment on above: Performed By: #### H EPATIC, CBC, BMP, LIPASE #### [address] Mean Corpuscular HGB Conc 33.7 g/dL Normal 32.0-35.0 [facility] Comment on above: Performed By: #### H EPATIC, CBC, BMP, LIPASE #### [address] Monocytes (Bld) [#/Vol] 0.5 10*3/uL Normal 0.0-0.8 [facility] Comment on above: Performed By: #### H EPATIC, CBC, BMP, LIPASE #### [address] Monocytes/100 WBC (Bld) 16.44 % Normal 0.00-20.00 [facility] Comment on above: Performed By: #### H EPATIC, CBC, BMP, LIPASE #### [address] Monocytes/100 WBC (Bld) 7.7 % Normal . [facility] Comment on above: Performed By: #### H EPATIC, CBC, BMP, LIPASE #### [address] Neutrophils (Bld) [#/Vol] 3.2 10*3/uL Normal 1.8-7.7 [facility] Comment on above: Performed By: #### H EPATIC, CBC, BMP, LIPASE #### [address] Neutrophils/100 WBC (Bld) 50.2 % Normal . [facility] Comment on above: Performed By: #### H EPATIC, CBC, BMP, LIPASE #### [address] NRBC% 0.1 /100{WBC} Normal 0-0.5 [facility] Comment on above: Performed By: #### H EPATIC, CBC, BMP, LIPASE #### [address] Platelet mean volume (Bld) [Entitic vol] 7.6 fL Normal 6.3-10.7 [facility] Comment on above: Performed By: #### H EPATIC, CBC, BMP, LIPASE #### [address] Platelets (Bld) [#/Vol] 357 10*3/uL Normal 150-450 [facility] Comment on above: Performed By: #### H EPATIC, CBC, BMP, LIPASE #### [address] RBC (Bld) [#/Vol] 4.12 10*6/uL Normal 3.60-5.00 [facility] Comment on above: Performed By: #### H EPATIC, CBC, BMP, LIPASE #### [address] WBC (Bld) [#/Vol] 6.3 10*3/uL Normal 3.8-11.6 [facility] Comment on above: Performed By: #### H EPATIC, CBC, BMP, LIPASE #### [address] Creatinine [Mass/volume] in Serum or PlasmaOrdered By: Pete Thakkar on 07-19-2023 Creatinine [Mass/Vol] 0.72 mg/dL 0.60-1.20 [facility] Dipstick and Microscopicon 0 03-23-2023 Appearance (U) Clear Normal Clear [facility] Comment on above: Order Comment: Name Collection Type:: Clean-Voided Midstream Performed By: #### P ORS #### [facility] [address] [place] [address] [place] Bacteria,Urine 1+ High None Seen [facility] Comment on above: Order Comment: Name Collection Type:: Clean-Voided Midstream Performed By: #### P ORS #### [facility] [address] [place] [address] [place] Bilirubin,Urine Negative Normal Negative [facility] Comment on above: Order Comment: Name Collection Type:: Clean-Voided Midstream Performed By: #### P ORS #### [facility] [address] [place] [address] [place] Color (U) Yellow Normal Yellow [facility] Comment on above: Order Comment: Name Collection Type:: Clean-Voided Midstream Performed By: #### P ORS #### [facility] [address] [place] [id number] [place] Glucose Ql (U) Normal Normal Normal [facility] Comment on above: Order Comment: Name Collection Type:: Clean-Voided Midstream Performed By: #### P ORS #### [facility] [address] [place] [address] [place] Hyaline Casts,Urine None Seen Normal 0-8 [facility] Comment on above: Order Comment: Name Collection Type:: Clean-Voided Midstream Result Comment: PERF ORMED BY: [facility] [address] [place] [id number] PATHOLOGIST MIXER OPERATOR [employer] SALT ROOSEVELT KEYES M.D. Performed By: #### P ORS #### [facility] [address] [place] [address] [place] Ketones Ql (U) Negative Normal Negative [facility] Comment on above: Order Comment: Name Collection Type:: Clean-Voided Midstream Performed By: #### P ORS #### [facility] [address] [place] [address] Leukocyte esterase Test strip Ql (U) Negative Normal Negative [facility] Comment on above: Order Comment: Name Collection Type:: Clean-Voided Midstream Performed By: #### P ORS #### [address] Nitrite,Urine Negative Normal Negative [facility] Comment on above: Order Comment: Name Collection Type:: Clean-Voided Midstream Performed By: #### P ORS #### [address] Occult Blood,Urine Trace High Negative [facility] Comment on above: Order Comment: Name Collection Type:: Clean-Voided Midstream Result Comment: PERF ORMED BY: [place] [address] PATHOLOGIST MIXER OPERATOR V[employer] SALT ROOSEVELT KEYES M.D. Performed By: #### P ORS #### [address] pH (U) 5.0 [pH] Normal 5.0-9.0 [facility] Comment on above: Order Comment: Name Collection Type:: Clean-Voided Midstream Performed By: #### P ORS #### [address] Protein,Urine Negative Normal Negative [facility] Comment on above: Order Comment: Name Collection Type:: Clean-Voided Midstream Performed By: #### P ORS #### [address] RBC LM.HPF (Urine sed) [#/Area] 0 /[HPF] Normal 0-4 [facility] Comment on above: Order Comment: Name Collection Type:: Clean-Voided Midstream Performed By: #### P ORS #### [address] Specificy [place],Urine 1.048 High 1.001-1.030 [facility] Comment on above: Order Comment: Name Collection Type:: Clean-Voided Midstream Performed By: #### P ORS #### [address] [place] [address] [place] Squamous Epithelial Cell,Urine None Seen Normal 0-2 [facility] Comment on above: Order Comment: Name Collection Type:: Clean-Voided Midstream Performed By: #### P ORS #### [address] Urobilinogen,Urine Normal Normal Normal [facility] Comment on above: Order Comment: Name Collection Type:: Clean-Voided Midstream Performed By: #### P ORS #### [address] WBC LM.HPF (Urine sed) [#/Area] 0 /[HPF] Normal 0-4 [facility] Comment on above: Order Comment: Name Collection Type:: Clean-Voided Midstream Performed By: #### P ORS #### [address] Eosinophils Auto (Bld) [#/Vo l]Ordered By: Pete Thakkar on 03-23-2023 Eosinophils (Bld) [#/Vol] 0.3 10*3/uL 0.0-0.45 [facility] Eosinophils/100 WBC Auto (Bl d)Ordered By: Pete Thakkar on 03-23-2023 Eosinophils/100 WBC (Bld) 5.0 % . [facility] Erythrocyte distribution wid th Auto (RBC) [Ratio]Ordered By: Pete Thakkar on 03-23-2023 Erythrocyte distribution width (RBC) [Ratio] 13.6 % 11.9-15.3 [facility] Globulin Calc (S) [Mass/Vol] Ordered By: Pete Thakkar on 03-23-2023 Globulin (S) [Mass/Vol] 2.9 g/dL [facility] Glucose [Mass/volume] in Ser um or PlasmaOrdered By: Pete Thakkar on 03-23-2023 Glucose [Mass/Vol] 79 mg/dL 70-100 [facility] Comment on above: ADA recommended refe rence rangeRandom Glucose Reference Range is dependent on time and content of last meal. Glucose of more than 200 mg/dL in a nonstressed, ambulatory subject supports the diagnosis of Diabetes Mellitus. Hematocrit Auto (Bld) [Volum e fraction]Ordered By: Pete Thakkar on 03-23-2023 Hematocrit (Bld) [Volume fraction] 35.7 % 34.0-46.4 [facility] Hemoglobin [Mass/volume] in BloodOrdered By: Pete Thakkar on 03-23-2023 Hemoglobin (Bld) [Mass/Vol] 12.0 g/dL 11.8-15.4 [facility] Hepatic Panelon 03-23-2023 Albumin [Mass/Vol] 4.1 g/dL Normal 3.5-5.7 [facility] Comment on above: Performed By: #### H EPATIC, CBC, BMP, LIPASE #### [facility] [address] Albumin/Globulin [Mass ratio] 1.4 {ratio} Normal [facility] Comment on above: Performed By: #### H EPATIC, CBC, BMP, LIPASE #### [facility] [address] ALP [Catalytic activity/Vol] 115 U/L High 34-104 [facility] Comment on above: Performed By: #### H EPATIC, CBC, BMP, LIPASE #### [facility] [address] [place] [id number] [place] ALT [Catalytic activity/Vol] 11 U/L Normal 7-52 [facility] Comment on above: Performed By: #### H EPATIC, CBC, BMP, LIPASE #### [facility] [address] [place] [id number] [place] AST [Catalytic activity/Vol] 15 U/L Normal 13-39 [facility] Comment on above: Performed By: #### H EPATIC, CBC, BMP, LIPASE #### [facility] [address] [place] [id number] [place] Bilirubin [Mass/Vol] 0.3 mg/dL Normal 0.3-1.0 [facility] Comment on above: Performed By: #### H EPATIC, CBC, BMP, LIPASE #### [facility] [address] [place] [address] [place] Bilirubin,Indirect 0.2 mg/dL Normal [facility] Comment on above: Performed By: #### H EPATIC, CBC, BMP, LIPASE #### [facility] [address] Bilirubin.indirect [Mass/Vol] 0.10 mg/dL Normal 0.03-0.18 [facility] Comment on above: Performed By: #### H EPATIC, CBC, BMP, LIPASE #### [address] Globulin (S) [Mass/Vol] 2.9 g/dL Normal [facility] Comment on above: Performed By: #### H EPATIC, CBC, BMP, LIPASE #### [address] Protein [Mass/Vol] 7.0 g/dL Normal 6.4-8.9 [facility] Comment on above: Performed By: #### H EPATIC, CBC, BMP, LIPASE #### [address] Ketones Auto test strip (U) [Mass/Vol]Ordered By: Pete Thakkar on 03-23-2023 Ketones (U) [Mass/Vol] Negative Negative [facility] Laboratory - UrinalysisOrder ed By: Pete Thakkar on 03-23-2023 Hyaline casts LM Ql (Urine sed) None seen [LPF] 0-8 [facility] Leukocytes [#/volume] correc jun for nucleated erythrocytes in Blood by Automated counOrdered By: Pete Thakkar on 03-23-2023 WBC corrected for nucl RBC Auto (Bld) [#/Vol] 6.3 10*3/uL 3.8-11.6 [facility] Lipaseon 03-23-2023 Lipase [Catalytic activity/Vol] 32.0 U/L Normal 11.0-82.0 [facility] Comment on above: Result Comment: PERF ORMED BY: [place] [address] PATHOLOGIST MIXER OPERATOR [employer] SALT ROOSEVELT KEYES M.D. Performed By: #### H EPATIC, CBC, BMP, LIPASE #### [place] [id number] [place] Lipase [Enzymatic activity/v olume] in Serum or PlasmaOrdered By: Pete Thakkar on 03-23-2023 Lipase [Catalytic activity/Vol] 32.0 U/L 11.0-82.0 [facility] Lymphocytes Auto (Bld) [#/Vo l]Ordered By: Pete Thakkar on 03-23-2023 Lymphocytes (Bld) [#/Vol] 2.3 10*3/uL 1.00-4.8 [facility] Lymphocytes/100 WBC Auto (Bl d)Ordered By: Pete Thakkar on 03-23-2023 Lymphocytes/100 WBC (Bld) 36.1 % . [facility] MCH Auto (RBC) [Entitic mass ]Ordered By: Pete Thakkar on 03-23-2023 MCH (RBC) [Entitic mass] 29.2 pg 24.7-34.3 [facility] MCHC Auto (RBC) [Mass/Vol]Or dered By: Pete Thakkar on 03-23-2023 MCHC (RBC) [Mass/Vol] 33.7 g/dL 32.0-35.0 [facility] MCV Auto (RBC) [Entitic vol] Ordered By: Pete Thakkar on 03-23-2023 MCV (RBC) [Entitic vol] 86.7 fL 80-100 [facility] Monocyte distribution width [Entitic volume] in Blood by AutomatedOrdered By: Pete Thakkar on 03-23-2023 Monocyte distribution width Auto (Bld) [Entitic vol] 16.44 % 0.00-20.00 [facility] Monocytes Auto (Bld) [#/Vol] Ordered By: Pete Thakkar on 03-23-2023 Monocytes (Bld) [#/Vol] 0.5 10*3/uL 0.0-0.8 [facility] Monocytes/100 WBC Auto (Bld) Ordered By: Pete Thakkar on 03-23-2023 Monocytes/100 WBC (Bld) 7.7 % . [facility] Neutrophils Auto (Bld) [#/Vo l]Ordered By: Pete Thakkar on 03-23-2023 Neutrophils (Bld) [#/Vol] 3.2 10*3/uL 1.8-7.7 [facility] Neutrophils/100 WBC Auto (Bl d)Ordered By: Pete Thakkar on 03-23-2023 Neutrophils/100 WBC (Bld) 50.2 % . [facility] Nitrite Test strip Ql (U)Ord ered By: Pete Thakkar on 03-23-2023 Nitrite Ql (U) Negative Negative [facility] No Panel InformationOrdered By: Pete Thakkar on 03-23-2023 Estimated GFR (CKD-EPI) > 60.0 mL/Min [facility] Creatinine Clearance (Chem 105.27 [facility] Nucleated erythrocytes [Pres ence] in Blood by Automated countOrdered By: Pete Thakkar on 03-23-2023 Nucleated RBC Auto Ql (Bld) 0.1 /100{WBC} 0-0.5 [facility] Platelet mean volume Auto (B ld) [Entitic vol]Ordered By: Pete Thakkar on 03-23-2023 Platelet mean volume (Bld) [Entitic vol] 7.6 fL 6.3-10.7 [facility] Platelets Auto (Bld) [#/Vol] Ordered By: Pete Thakkar on 03-23-2023 Platelets (Bld) [#/Vol] 357 10*3/uL 150-450 [facility] Potassium [Moles/volume] in Serum or PlasmaOrdered By: Pete Thakkar on 03-23-2023 Potassium [Moles/Vol] 3.6 mmol/L 3.5-5.1 [facility] Protein Auto test strip (U) [Mass/Vol]Ordered By: Pete Thakkar on 03-23-2023 Protein (U) [Mass/Vol] Negative Negative [facility] Protein [Mass/volume] in Ser um or PlasmaOrdered By: Pete Thakkar on 03-23-2023 Protein [Mass/Vol] 7.0 g/dL 6.4-8.9 [facility] RBC Auto (Bld) [#/Vol]Ordere d By: Pete Thakkar on 03-23-2023 RBC (Bld) [#/Vol] 4.12 10*6/uL 3.60-5.00 [facility] Serum or plasma albumin/glob ulin mass ratioOrdered By: Pete Thakkar on 03-23-2023 Albumin/Globulin [Mass ratio] 1.4 {ratio} [facility] Serum or plasma anion gap de terminationOrdered By: Pete Thakkar on 03-23-2023 Anion gap [Moles/Vol] 10.1 mmol/L 6.0-15.0 [facility] Serum or plasma non-glucuron idated bilirubin measurement (mass/volume)Ordered By: Pete Thakkar on 03-23-2023 Bilirubin.indirect [Mass/Vol] 0.2 mg/dL [facility] Sodium [Moles/volume] in Ser um or PlasmaOrdered By: Pete Thakkar on 03-23-2023 Sodium [Moles/Vol] 142 mmol/L 136-145 [facility] Specific gravity Auto test s trip (U) [Rel density]Ordered By: Pete Thakkar on 03-23-2023 Specific gravity (U) [Rel density] 1.048 1.001-1.030 [facility] Squamous epithelial cells de tection in urine sediment by light microscopyOrdered By: Pete Thakkar on 03-23-2023 Epithelial cells.squamous LM Ql (Urine sed) None seen [HPF] 0-2 [facility] Troponin I High Sensitivityo n 03-23-2023 Troponin I High Sensitivity 12.2 pg/mL Normal 0.0-15.0 [facility] Comment on above: Result Comment: PERF ORMED BY: [place] [address] PATHOLOGIST MIXER OPERATOR [employer] SALT ROOSEVELT KEYES M.D. Performed By: #### H S TROP #### [address] Troponin I.cardiac [Mass/vol ume] in Serum or Plasma by Detection limit <= 0.01 ng/Ordered By: Pete Thakkar on 03-23-2023 Troponin I.cardiac DL <= 0.01 ng/mL [Mass/Vol] 12.2 pg/mL 0.0-15.0 [facility] Urea nitrogen [Mass/volume] in Serum or PlasmaOrdered By: Pete Thakkar on 03-23-2023 Urea nitrogen [Mass/Vol] 24 mg/dL 7-25 [facility] Urine bacteria detection by automated methodOrdered By: Pete Thakkar on 03-23-2023 Bacteria Auto Ql (U) 1+ None Seen [facility] Urine clarity by refractomet ry automatedOrdered By: Pete Thakkar on 03-23-2023 Clarity Refractometry automated (U) Clear Clear [facility] Urine glucose measurement by automated test strip (mass/volume)Ordered By: Pete Thakkar on 03-23-2023 Glucose Auto test strip (U) [Mass/Vol] Normal mg/dL Normal [facility] Urine hemoglobin detection b y automated test stripOrdered By: Pete Thakkar on 03-23-2023 Hemoglobin Auto test strip Ql (U) Trace Negative [facility] Urine leukocyte esterase det ection by automated test stripOrdered By: Pete Thakkar on 03-23-2023 Leukocyte esterase Auto test strip Ql (U) Negative Negative [facility] Urobilinogen Auto test strip (U) [Mass/Vol]Ordered By: Pete Thakkar on 03-23-2023 Urobilinogen (U) [Mass/Vol] Normal mg/dL Normal [facility] WBC Auto (Bld) [#/Vol]Ordere d By: Pete Thakkar on 03-23-2023 WBC (Bld) [#/Vol] 6.3 10*3/uL 3.8-11.6 [facility] pH Auto test strip (U)Ordere d By: Pete Thakkar on 03-23-2023 pH (U) 5.0 [pH] 5.0-9.0 [facility] Discharge Instructionson Discharge Instructions [id number]#[id number]:127 [facility] Comment on above: Other Comment: wrong folder Prescriptions/Work Noteson 0 03-03-2023 Prescriptions/Work Notes [id number]#[id number]:127 [facility] Consent for Treatmenton 02-03 Consent for Treatment [id number]#1.00CD:127 [facility] Discharge Instructionson Discharge Instructions [id number]#[id number]:127 Normal [facility] ED Clinical Summaryon 2022 ED Clinical Summary (Inserted Image. Kristin ble to display) [address] [address] ED Clinical Summary Person Information Name: CONSTANTINO CARDOSO [place] Age: 52 Years : 1970 Sex: Female Language: Algerian PCP: JUDI YOUSSEF CNP Marital Status: Phone: [phone] MRN: Visit Id: Visit Reason: Wrist pain-swelling; [...] 02/19/2023 01:41:18 02/19/2023 01:41:18 ADDRESS: [address] [facility] [phone] PHYS DOC NOTES: MEDICAL INFORMATION: Prescriptions Given: New Medications [id number], [address], [place] [id number], [phone] naproxen (Naprosyn 500 mg Tab) 1 Tablets [...] With: Address: When: JUDI YOUSSEF [address] [place] [phone] Business (1) In 3 days 02/22/2023 Comments: Take the pain medication as prescribed as needed for pain. Please follow-up with your primary care doctor in the next 2 to 3 days for further evaluation management. Please return to the ED for any new or worsening symptoms or DIAGNOSIS: Right wrist sprain Normal [facility] ED Note-Physicianon 02-20-20 ED Note-Physician Basic Information Time Seen: Zabrina Patton DO 02/19/2023 00:51 Chief Complaint states fell yesterday injuring right wrist. was seen at [place]. splint in place. states pain radiating up the arm. taking motrin and tylenol History of Present Illness Patient is a 52-year-old female with past medical history of hypertension gastroparesis presenting to the ED for evaluation of right arm pain. Patient had a fall yesterday was seen at [place] had x-rays and was told it was [...] and Complexity of Problems Differential Diagnosis: [] [facility] Data External documents reviewed: [] My [...] and elbow are obtained. Patient is given [place] in the ED for pain. X-rays do [...] pain, # 20 tab(s), Refills(s) 0, Pharmacy: [id number], 170, cm, 02/19/23 0:56:00 EDT, Height/Length Dosing, 90.2, kg, 02/19/23 0:56:00 EDT, Weight Dosing XR Elbow 3+ Views Right XR Wrist 3+ Views Right Medications Administered Given [place] 5/325 Tab, 1 tab(s), Oral Disposition Plan Discharge Prescription List Prescriptions Naprosyn 500 mg Tab, 500 mg= 1 tab(s), Oral, BID, PRN Follow-up With When Contact Information JUDI YOUSSEF In 3 days 02/22/2023 EDT [address] [phone] Business (1) Additional Instructions: Take the pain [...] (03/02/2019), Cholecystectomy, Hernia repair, Hysterectomy. Medications Inpatient [place] 5/325 Tab, 1 tab(s), Oral, Once Home albuterol HFA 90 mcg/inh MDI, 2 pu (more content not included)... Normal [facility] Comment on above: Result Comment: Elec tronically [...] safe for you. General instructions ? Take swsh-jzz-ytifmif and prescription medicines only as told by [...] it gets (more content not included)... Normal [facility] ED Patient Summaryon 023 ED Patient Summary (Inserted Image. Kristin ble to display) [address] [address] Patient Discharge Instructions Person Information Name: CONSTANTINO CARDOSO Age: 52 Years Arrival Date: 02/19/2023 00:48:45 Discharge Diagnosis: Right wrist sprain Primary Care Physician: JUDI YOUSSEF CNP Provider Information Primary Provider: Zabrina Patton DO Advanced Sign Erector:None The exam and treatment you received in the Emergency Department were for an urgent problem and are not intended as complete care. It is important that you follow up with a doctor, nurse practitioner, or physician?s registrar assistant for ongoing care. If your symptoms [...] When: JUDI YOUSSEF [address] [place] [phone] Business (1) In 3 days 02/22/2023 Comments: [...] opioids can be used to help relieve wfctmfud-[id number] pain and are often prescribed following a [...] the ris (more content not included)... Normal [facility] XR Elbow 3+ Views Righton XR Elbow [...] mGy = na DAP = na Normal [facility] XR Wrist 3+ Views Righton XR Wrist [...] mGy = na DAP = na Normal [facility] Activated partial thrombopla stin time (aPTT) in platelet poor plasma by coagulation aOrdered By: Conner Griffith on 02-15-2023 aPTT Coag (PPP) [Time] 37.0 s 25.1-36.5 [facility] Alanine aminotransferase [En zymatic activity/volume] in Serum or PlasmaOrdered By: Conner Griffith on 02-15-2023 ALT [Catalytic activity/Vol] 13 U/L 7-52 [facility] Albumin [Mass/volume] in Ser um or Plasma by Bromocresol green (BCG) dye binding methoOrdered By: Conner Griffith on 02-15-2023 Albumin BCG dye [Mass/Vol] 4.3 g/dL 3.5-5.7 [facility] Alkaline phosphatase [Enzyma tic activity/volume] in Serum or PlasmaOrdered By: Conner Griffith on 02-15-2023 ALP [Catalytic activity/Vol] 124 U/L 34-104 [facility] Aspartate aminotransferase [ Enzymatic activity/volume] in Serum or PlasmaOrdered By: Conner Griffith on 02-15-2023 AST [Catalytic activity/Vol] 15 U/L 13-39 [facility] Basic Metabolic Panelon 02-03 Anion gap [Moles/Vol] 12.6 mmol/L Normal 6.0-15.0 [facility] Comment on above: Performed By: #### H EPATIC, CBC, BMP, LIPASE #### [facility] [address] Calcium [Mass/Vol] 9.3 mg/dL Normal 8.6-10.3 [facility] Comment on above: Performed By: #### H EPATIC, CBC, BMP, LIPASE #### [facility] [address] [place] [address] [place] Chloride [Moles/Vol] 106 mmol/L Normal 98-107 [facility] Comment on above: Performed By: #### H EPATIC, CBC, BMP, LIPASE #### [address] CO2 [Moles/Vol] 25.3 mmol/L Normal 21.0-31.0 [facility] Comment on above: Performed By: #### H EPATIC, CBC, BMP, LIPASE #### [address] Creatinine [Mass/Vol] 0.77 mg/dL Normal 0.60-1.20 [facility] Comment on above: Performed By: #### H EPATIC, CBC, BMP, LIPASE #### [address] Creatinine Clr Calc Pharmacy 98.01 [facility] Comment on above: Performed By: #### H EPATIC, CBC, BMP, LIPASE #### [address] GFR/1.73 sq M.predicted MDRD (S/P/Bld) [Vol rate/Area] mL/min/{1.73_m2} [facility] Comment on above: Performed By: #### H EPATIC, CBC, BMP, LIPASE #### [address] Glucose [Mass/Vol] 94 mg/dL Normal 70-100 [facility] Comment on above: Result Comment: [place] Glucose Reference Range is dependent on time and content of last meal. Glucose of more than 200 mg/dL in a nonstressed, ambulatory subject supports the diagnosis of Diabetes Mellitus. ADA recommended reference range Performed By: #### H EPATIC, CBC, BMP, LIPASE #### [address] Potassium [Moles/Vol] 3.9 mmol/L Normal 3.5-5.1 [facility] Comment on above: Performed By: #### H EPATIC, CBC, BMP, LIPASE #### [address] [place] [address] [place] Sodium [Moles/Vol] 140 mmol/L Normal 136-145 [facility] Comment on above: Performed By: #### H EPATIC, CBC, BMP, LIPASE #### [facility] [address] [place] [address] Urea nitrogen [Mass/Vol] 14 mg/dL Normal 7-25 [facility] Comment on above: Performed By: #### H EPATIC, CBC, BMP, LIPASE #### [facility] [address] [place] [address] Basophils Auto (Bld) [#/Vol] Ordered By: Conner Griffith on 02-15-2023 Basophils (Bld) [#/Vol] 0.0 10*3/uL 0.0-0.2 [facility] Basophils/100 WBC Auto (Bld) Ordered By: Conner Griffith on 02-15-2023 Basophils/100 WBC (Bld) 0.6 % . [facility] Bilirubin.direct [Mass/volum e] in Serum or PlasmaOrdered By: Conner Griffith on 02-15-2023 Bilirubin.direct [Mass/Vol] 0.00 mg/dL 0.03-0.18 [facility] Comment on above: If the DBIL is less than 0.1, IBIL is not able to becalculated. Bilirubin.total [Mass/volume ] in Serum or PlasmaOrdered By: Conner Griffith on 02-15-2023 Bilirubin [Mass/Vol] 0.4 mg/dL 0.3-1.0 [facility] CT abdomen pelvis w conon CT abdomen pelvis w con [facility] Main [place] [address] [place] [address] CT Scan Report Signed Patient: Constantino Cardoso MR#: [id number] : 1970 Acct:[id number] Age/Sex: 52 / F ADM Date: 02/15/23 Loc: ER Room: Type: [facility] ER Attending Dr: Copies to: Conner [...] Columba Domínguez M.D.02/15/2023 9:56 AM Dictation Location: [place] [address] Transcribed By: [facility] 02/15/23 0956 Dictated By: Columba Domínguez MD 02/15/23 0943 Signed By: 02/15/23 0956 [facility] Calcium [Mass/volume] in Ser um or PlasmaOrdered By: Conner Griffith on 02-15-2023 Calcium [Mass/Vol] 9.3 mg/dL 8.6-10.3 [facility] Carbon dioxide, total [Moles /volume] in Serum or PlasmaOrdered By: Conner Griffith on 02-15-2023 CO2 [Moles/Vol] 25.3 mmol/L 21.0-31.0 [facility] Chloride [Moles/volume] in S cristine or PlasmaOrdered By: Conner Griffith on 02-15-2023 Chloride [Moles/Vol] 106 mmol/L 98-107 [facility] Complete Blood Count Auto Di ffon 02-15-2023 Basophils (Bld) [#/Vol] 0.0 10*3/uL Normal 0.0-0.2 [facility] Comment on above: Result Comment: PERF ORMED BY: [place] [address] PATHOLOGIST MIXER OPERATOR VACUUM PAN SALT ROOSEVELT KEYES M.D. Performed By: #### P ORS #### [address] Basophils/100 WBC (Bld) 0.6 % Normal . [facility] Comment on above: Performed By: #### P ORS #### [address] Eosinophils (Bld) [#/Vol] 0.2 10*3/uL Normal 0.0-0.45 [facility] Comment on above: Performed By: #### P ORS #### [address] Eosinophils/100 WBC (Bld) 4.0 % Normal . [facility] Comment on above: Performed By: #### P ORS #### [address] Erythrocyte distribution width (RBC) [Ratio] 13.5 % Normal 11.9-15.3 [facility] Comment on above: Performed By: #### P ORS #### [address] Hematocrit (Bld) [Volume fraction] 38.4 % Normal 34.0-46.4 [facility] Comment on above: Performed By: #### P ORS #### [address] Hemoglobin (Bld) [Mass/Vol] 13.0 g/dL Normal 11.8-15.4 [facility] Comment on above: Performed By: #### P ORS #### [facility] [address] Lymphocytes (Bld) [#/Vol] 1.8 10*3/uL Normal 1.00-4.8 [facility] Comment on above: Performed By: #### P ORS #### [facility] [address] Lymphocytes/100 WBC (Bld) 33.8 % Normal . [facility] Comment on above: Performed By: #### P ORS #### [address] MCH (RBC) [Entitic mass] 29.4 pg Normal 24.7-34.3 [facility] Comment on above: Performed By: #### P ORS #### [address] MCV (RBC) [Entitic vol] 86.8 fL Normal 80-100 [facility] Comment on above: Performed By: #### P ORS #### [address] Mean Corpuscular HGB Conc 33.8 g/dL Normal 32.0-35.0 [facility] Comment on above: Performed By: #### P ORS #### [address] Monocytes (Bld) [#/Vol] 0.3 10*3/uL Normal 0.0-0.8 [facility] Comment on above: Performed By: #### P ORS #### [place] [address] [place] Monocytes/100 WBC (Bld) 18.21 % Normal 0.00-20.00 [facility] Comment on above: Performed By: #### P ORS #### [address] Monocytes/100 WBC (Bld) 4.8 % Normal . [facility] Comment on above: Performed By: #### P ORS #### [address] Neutrophils (Bld) [#/Vol] 3.0 10*3/uL Normal 1.8-7.7 [facility] Comment on above: Performed By: #### P ORS #### [address] Neutrophils/100 WBC (Bld) 56.8 % Normal . [facility] Comment on above: Performed By: #### P ORS #### [address] NRBC% 0.2 /100{WBC} Normal 0-0.5 [facility] Comment on above: Performed By: #### P ORS #### [address] Platelet mean volume (Bld) [Entitic vol] 7.3 fL Normal 6.3-10.7 [facility] Comment on above: Performed By: #### P ORS #### [address] Platelets (Bld) [#/Vol] 385 10*3/uL Normal 150-450 [facility] Comment on above: Performed By: #### P ORS #### [address] RBC (Bld) [#/Vol] 4.43 10*6/uL Normal 3.60-5.00 [facility] Comment on above: Performed By: #### P ORS #### [address] WBC (Bld) [#/Vol] 5.2 10*3/uL Normal 3.8-11.6 [facility] Comment on above: Performed By: #### P ORS #### [address] Creatinine [Mass/volume] in Serum or PlasmaOrdered By: Conner Griffith on 02-15-2023 Creatinine [Mass/Vol] 0.77 mg/dL 0.60-1.20 [facility] Eosinophils Auto (Bld) [#/Vo l]Ordered By: Conner Griffith on 02-15-2023 Eosinophils (Bld) [#/Vol] 0.2 10*3/uL 0.0-0.45 [facility] Eosinophils/100 WBC Auto (Bl d)Ordered By: Conner Griffith on 02-15-2023 Eosinophils/100 WBC (Bld) 4.0 % . [facility] Erythrocyte distribution wid th Auto (RBC) [Ratio]Ordered By: Conner Griffith on 02-15-2023 Erythrocyte distribution width (RBC) [Ratio] 13.5 % 11.9-15.3 [facility] Globulin Calc (S) [Mass/Vol] Ordered By: Conner Griffith on 02-15-2023 Globulin (S) [Mass/Vol] 3.0 g/dL [facility] Glucose [Mass/volume] in Ser um or PlasmaOrdered By: Conner Griffith on 02-15-2023 Glucose [Mass/Vol] 94 mg/dL 70-100 [facility] Comment on above: ADA recommended refe rence rangeRandom Glucose Reference Range is dependent on time and content of last meal. Glucose of more than 200 mg/dL in a nonstressed, ambulatory subject supports the diagnosis of Diabetes Mellitus. Hematocrit Auto (Bld) [Volum e fraction]Ordered By: Conner Griffith on 02-15-2023 Hematocrit (Bld) [Volume fraction] 38.4 % 34.0-46.4 [facility] Hemoglobin [Mass/volume] in BloodOrdered By: Conner Griffith on 02-15-2023 Hemoglobin (Bld) [Mass/Vol] 13.0 g/dL 11.8-15.4 [facility] Hepatic Panelon 02-15-2023 Albumin [Mass/Vol] 4.3 g/dL Normal 3.5-5.7 [facility] Comment on above: Performed By: #### P ORS #### [facility] [address] Albumin/Globulin [Mass ratio] 1.4 {ratio} Normal [facility] Comment on above: Performed By: #### P ORS #### [address] ALP [Catalytic activity/Vol] 124 U/L High 34-104 [facility] Comment on above: Performed By: #### P ORS #### [address] ALT [Catalytic activity/Vol] 13 U/L Normal 7-52 [facility] Comment on above: Performed By: #### P ORS #### [address] AST [Catalytic activity/Vol] 15 U/L Normal 13-39 [facility] Comment on above: Performed By: #### P ORS #### [address] Bilirubin [Mass/Vol] 0.4 mg/dL Normal 0.3-1.0 [facility] Comment on above: Performed By: #### P ORS #### [address] Bilirubin,Indirect 0.4 mg/dL Normal [facility] Comment on above: Performed By: #### P ORS #### [address] Bilirubin.indirect [Mass/Vol] 0.00 mg/dL Low 0.03-0.18 [facility] Comment on above: Result Comment: If t he DBIL is less than 0.1, IBIL is not able to be calculated. Performed By: #### P ORS #### [address] Globulin (S) [Mass/Vol] 3.0 g/dL Normal [facility] Comment on above: Performed By: #### P ORS #### [address] Protein [Mass/Vol] 7.3 g/dL Normal 6.4-8.9 [facility] Comment on above: Performed By: #### P ORS #### [address] Laboratory - CoagulationOrde red By: Conner Griffith on 02-15-2023 PT Coag (PPP) [Time] 11.7 s 9.0-12.9 [facility] Leukocytes [#/volume] correc jun for nucleated erythrocytes in Blood by Automated counOrdered By: Conner Griffith on 02-15-2023 WBC corrected for nucl RBC Auto (Bld) [#/Vol] 5.2 10*3/uL 3.8-11.6 [facility] Lipaseon 02-15-2023 Lipase [Catalytic activity/Vol] 19.0 U/L Normal 11.0-82.0 [facility] Comment on above: Result Comment: PERF ORMED BY: [place] [address] PATHOLOGIST MIXER OPERATOR [employer] SALT ROOSEVELT KEYES M.D. Performed By: #### H EPATIC, CBC, BMP, LIPASE #### [address] Lipase [Enzymatic activity/v olume] in Serum or PlasmaOrdered By: Conner Griffith on 02-15-2023 Lipase [Catalytic activity/Vol] 19.0 U/L 11.0-82.0 [facility] Lymphocytes Auto (Bld) [#/Vo l]Ordered By: Conner Griffith on 02-15-2023 Lymphocytes (Bld) [#/Vol] 1.8 10*3/uL 1.00-4.8 [facility] Lymphocytes/100 WBC Auto (Bl d)Ordered By: Conner Griffith on 02-15-2023 Lymphocytes/100 WBC (Bld) 33.8 % . [facility] MCH Auto (RBC) [Entitic mass ]Ordered By: Conner Griffith on 02-15-2023 MCH (RBC) [Entitic mass] 29.4 pg 24.7-34.3 [facility] MCHC Auto (RBC) [Mass/Vol]Or dered By: Conner Griffith on 02-15-2023 MCHC (RBC) [Mass/Vol] 33.8 g/dL 32.0-35.0 [facility] MCV Auto (RBC) [Entitic vol] Ordered By: Conner Griffith on 02-15-2023 MCV (RBC) [Entitic vol] 86.8 fL 80-100 [facility] Monocyte distribution width [Entitic volume] in Blood by AutomatedOrdered By: Conner Griffith on 02-15-2023 Monocyte distribution width Auto (Bld) [Entitic vol] 18.21 % 0.00-20.00 [facility] Monocytes Auto (Bld) [#/Vol] Ordered By: Conner Griffith on 02-15-2023 Monocytes (Bld) [#/Vol] 0.3 10*3/uL 0.0-0.8 [facility] Monocytes/100 WBC Auto (Bld) Ordered By: Conner Griffith on 02-15-2023 Monocytes/100 WBC (Bld) 4.8 % . [facility] Neutrophils Auto (Bld) [#/Vo l]Ordered By: Conner Griffith on 02-15-2023 Neutrophils (Bld) [#/Vol] 3.0 10*3/uL 1.8-7.7 [facility] Neutrophils/100 WBC Auto (Bl d)Ordered By: Conner Griffith on 02-15-2023 Neutrophils/100 WBC (Bld) 56.8 % . [facility] No Panel InformationOrdered By: Conner Griffith on 02-15-2023 Estimated GFR (CKD-EPI) > 60.0 mL/Min [facility] Creatinine Clearance (Chem 98.01 [facility] Nucleated erythrocytes [Pres ence] in Blood by Automated countOrdered By: Conner Griffith on 02-15-2023 Nucleated RBC Auto Ql (Bld) 0.2 /100{WBC} 0-0.5 [facility] Partial Thromboplastin Timeo n 02-15-2023 aPTT Coag (Bld) [Time] 37.0 s High 25.1-36.5 [facility] Comment on above: Result Comment: PERF ORMED BY: [place] [address] PATHOLOGIST MIXER OPERATOR [employer] SALT ROOSEVELT KEYES M.D. Performed By: #### P ORS #### [address] Platelet mean volume Auto (B ld) [Entitic vol]Ordered By: Conner Griffith on 02-15-2023 Platelet mean volume (Bld) [Entitic vol] 7.3 fL 6.3-10.7 [facility] Platelet poor plasma interna tional normalized ratio (INR) by coagulation assay (relatOrdered By: Conner Griffith on 02-15-2023 INR Coag (PPP) [Relative time] 1.0 {INR} [facility] Comment on above: INR Therapeutic Rang [...] 02-15-2023 Platelets (Bld) [#/Vol] 385 10*3/uL 150-450 [facility] Potassium [Moles/volume] in Serum or PlasmaOrdered By: Conner Griffith on 02-15-2023 Potassium [Moles/Vol] 3.9 mmol/L 3.5-5.1 [facility] Protein [Mass/volume] in Ser um or PlasmaOrdered By: Conner Griffith on 02-15-2023 Protein [Mass/Vol] 7.3 g/dL 6.4-8.9 [facility] Prothrombin Time INRon 02-15 INR Coag (PPP) [Relative time] 1.0 {INR} Normal [facility] Comment on above: Result Comment: INR [...] 4.5 Performed By: #### P ORS #### [address] PT Coag (PPP) [Time] 11.7 s Normal 9.0-12.9 [facility] Comment on above: Performed By: #### P ORS #### [facility] [address] RBC Auto (Bld) [#/Vol]Ordere d By: Conner Griffith on 02-15-2023 RBC (Bld) [#/Vol] 4.43 10*6/uL 3.60-5.00 [facility] Serum or plasma albumin/glob ulin mass ratioOrdered By: Conner Griffith on 02-15-2023 Albumin/Globulin [Mass ratio] 1.4 {ratio} [facility] Serum or plasma anion gap de terminationOrdered By: Conner Griffith on 02-15-2023 Anion gap [Moles/Vol] 12.6 mmol/L 6.0-15.0 [facility] Serum or plasma non-glucuron idated bilirubin measurement (mass/volume)Ordered By: Conner Griffith on 02-15-2023 Bilirubin.indirect [Mass/Vol] 0.4 mg/dL [facility] Sodium [Moles/volume] in Ser um or PlasmaOrdered By: Conner Griffith on 02-15-2023 Sodium [Moles/Vol] 140 mmol/L 136-145 [facility] Urea nitrogen [Mass/volume] in Serum or PlasmaOrdered By: Conner Griffith on 02-15-2023 Urea nitrogen [Mass/Vol] 14 mg/dL 7-25 [facility] WBC Auto (Bld) [#/Vol]Ordere d By: Conner Grfifith on 02-15-2023 WBC (Bld) [#/Vol] 5.2 10*3/uL 3.8-11.6 [facility] MG MAMM SCREEN 3D MACARIO CADon 11-30-2022 MG MAMM SCREEN 3D MACARIO CAD Normal [facility] ER URINE PROFILEon 3 Bilirubin Ql (U) Negative Normal NEGATIVE [facility] Comment on above: Performed By: #### E RUR ####[facility] [address] [place] [address]Dr. Tadeo Smyth Clarity (U) CLEAR Normal CLEAR [facility] Comment on above: Performed By: #### E RUR ####[facility] [address] [place], [place] [address]Dr. Tadeo Smyth Color (U) YELLOW Normal YELLOW [facility] Comment on above: Performed By: #### E RUR ####[facility] [address] [place], [place] [address]Dr. Tadeo Smyth ERUAHD A micrscopic examina tion will be performed if indicated. Normal [facility] Comment on above: Performed By: #### E RUR ####[facility] Tb[address] [place], [place] [address]Dr. Tadeo Smyth Glucose Ql (U) Negative Normal NEGATIVE [facility] Comment on above: Performed By: #### E RUR ####[facility] [address] [place], [place] [address]Dr. Tadeo Smyth Hemoglobin Ql (U) TRACE-INTACT Abnormal NEGATIVE [facility] Comment on above: Performed By: #### E RUR ####[facility] [address] [place], [place] [address]Dr. Tadeo Smyth Ketones Ql (U) Negative Normal NEGATIVE [facility] Comment on above: Performed By: #### E RUR ####[facility] [address] [place], [place] [address]Dr. Tadeo Smyth LEUKOCYTES Negative Normal NEGATIVE [facility] Comment on above: Performed By: #### E RUR ####[facility] [address] [place], [place] [address]Dr. Tadeo Smyth Nitrite Ql (U) Negative Normal NEGATIVE [facility] Comment on above: Performed By: #### E RUR ####[facility] [address] [place], [place] [address]Dr. Tadeo Smyth pH (U) 6.0 [pH] Normal 5-9 [facility] Comment on above: Performed By: #### E RUR ####[facility] J[address] [place], [place] [address]Dr. Tadeo Smyth SPEC GRAVITY >=1.030 Abnormal 1.005-<=1.0 25 [facility] Comment on above: Performed By: #### E RUR ####[facility] [address] [place] [address]Dr. Tadeo Smyth UA PROTEIN Negative Normal NEGATIVE/ TRACE [facility] Comment on above: Performed By: #### E RUR ####[facility] [address] [place], [place] [address]Dr. Tadeo Smyth UR MICRO IND NOT INDICATED Normal [facility] Comment on above: Performed By: #### E RUR ####[facility] [address] [place], [place] [address]Dr. Tadeo Smyth Urobilinogen Qn (U) 0.2 {Benito'U}/dL Normal 0.2 - 1. 0 [facility] Comment on above: Performed By: #### E RUR ####[facility] [address] [place], [place] [address]Dr. Tadeo Smyth XR ABD FLAT UP_PA Kasey 11-28 XR ABD FLAT UP_PA CH Normal [facility] AMYLASEon 11-27-2022 Amylase [Catalytic activity/Vol] 63 U/L Normal 25-115 [facility] Comment on above: Performed By: #### L VIJI HALL, CMP ####[facility] [address] [place], [place] [address]Dr. Tadeo Smyth CBC AUTO DIFFon 11-27-2022 BASO # 0.0 103/ul Normal 0.0-0.1 [facility] Comment on above: Performed By: #### C BC ####[facility] [address] [place], [place] [address]Dr. Tadeo Smyth Basophils/100 WBC (Bld) 0.4 % Normal 0.2-2.0 [facility] Comment on above: Performed By: #### C BC ####[facility] [address] [place], [place] [address]Dr. Tadeo Smyth EO # 0.2 103/ul Normal 0.0-0.7 [facility] Comment on above: Performed By: #### C BC ####[facility] [address] [place] [address]Dr. Tadeo Smyth Eosinophils/100 WBC (Bld) 2.8 % Normal 0.9-7.0 [facility] Comment on above: Performed By: #### C BC ####[facility] Nr[address] [place], [place] [address]Dr. Tadeo Smyth Erythrocyte distribution width (RBC) [Ratio] 13.2 % Normal 11.0-15.0 [facility] Comment on above: Performed By: #### C BC ####[facility] [address] [place], [place] [address]Dr. Tadeo Smyth Hematocrit (Bld) [Volume fraction] 42.6 % Normal 36.0-48.0 [facility] Comment on above: Performed By: #### C BC ####[facility] Eg[address] [place], [place] [address]Dr. Tadeo Smyth Hemoglobin (Bld) [Mass/Vol] 13.6 g/dL Normal 12.0-16.0 [facility] Comment on above: Performed By: #### C BC ####[facility] J[address] [place], [place] [address]Dr. Tadeo Smyth IG # 0.02 10e3/ul Normal 0.00-0.03 [facility] Comment on above: Performed By: #### C BC ####[facility] [address] [place], [place] [address]Dr. Tadeo Smyth IG % 0.3 % Normal 0.0-0.5 [facility] Comment on above: Performed By: #### C BC ####[facility] R[address] [place], [place] [address]Dr. Tadeo Smyth LYMPH # 2.2 103/ul Normal 1.2-3.8 [facility] Comment on above: Performed By: #### C BC ####[facility] [address] [place], [place] [address]Dr. Tadeo Smyth Lymphocytes/100 WBC (Bld) 32.1 % Normal 20.5-60.0 [facility] Comment on above: Performed By: #### C BC ####[facility] [address] [place] [address]Dr. Tadeo Smyth MANUAL DIFF REQ NO Normal [facility] Comment on above: Performed By: #### C BC ####[facility] [address] [place] [address]Dr. Tadeo Smyth MCH (RBC) [Entitic mass] 29.6 pg Normal 26.7-34.0 [facility] Comment on above: Performed By: #### C BC ####[facility] [address] [place] [address]Dr. Tadeo Smyth MCHC (RBC) [Mass/Vol] 31.9 g/dL Normal 29.9-35.2 [facility] Comment on above: Performed By: #### C BC ####[facility] [address] [place] [address]Dr. Tadeo Haja MCV (RBC) [Entitic vol] 92.6 fL Normal 81.0-99.0 [facility] Comment on above: Performed By: #### C BC ####[facility] [address] [place], [place] [address]Dr. Tadeo Haja MONO # 0.2 103/ul Critically low 0.3-0.8 [facility] Comment on above: Performed By: #### C BC ####[facility] [address] [place], [place] [address]Dr. Margotnicole Smyth Monocytes/100 WBC (Bld) 3.2 % Normal 1.7-12.0 [facility] Comment on above: Performed By: #### C BC ####[facility] [address] [place], [place] [address]Dr. Margotnicole Haja NEUT # 4.2 103/ul Normal 1.4-6.5 [facility] Comment on above: Performed By: #### C BC ####[facility] [address] [place], [place] [address]Dr. Tadeo Smyth Neutrophils/100 WBC (Bld) 61.2 % Normal 43.0-75.0 [facility] Comment on above: Performed By: #### C BC ####[facility] [address] [place] [address]Dr. Tadeo Smyth Platelet mean volume (Bld) [Entitic vol] 9.0 fL Critically low 9.5-13.5 [facility] Comment on above: Performed By: #### C BC ####[facility] [address] [place] [address]Dr. Margotnicole Haja PLT 392 103/ul Normal 150-450 [facility] Comment on above: Performed By: #### C BC ####[facility] [address] [place] [address]Dr. Tadeo Smyth RBC 4.60 106/ul Normal 4.20-5.40 [facility] Comment on above: Performed By: #### C BC ####[facility] [address] [place], [place] [address]Dr. Tadeo Smyth WBC 6.9 103/ul Normal 4.0-11.0 [facility] Comment on above: Performed By: #### C BC ####[facility] [address] [place], [place] [address]Dr. Tadeo Smyth LIPASEon 11-27-2022 Lipase [Catalytic activity/Vol] 100.0 U/L Normal 73.0-393.0 [facility] Comment on above: Performed By: #### L VIJI HALL, CMP ####[facility] [address] [place], [place] [address]Dr. Tadeo Smyth PROF 14(COMP METB)on 023 Albumin [Mass/Vol] 3.5 g/dL Normal 3.4-5.0 [facility] Comment on above: Performed By: #### L VIJI HALL, CMP ####[facility] [address] [place], [place] [address]Dr. Tadeo Smyth Albumin/Globulin [Mass ratio] 0.9 {ratio} Normal [facility] Comment on above: Performed By: #### L VIJI HALL, CMP ####[facility] [address] [place], [place] [address]Dr. Tadeo Smyth ALP [Catalytic activity/Vol] 166 U/L Critically high 46-116 [facility] Comment on above: Performed By: #### L IPA, VIJI, CMP ####[facility] [address] [place] [address]Dr. Margotnicole Smyth ALT [Catalytic activity/Vol] 25 U/L Normal 14-59 [facility] Comment on above: Performed By: #### L IPA, VIJI, CMP ####[facility] [address] [place] [address]Dr. Tadeo Smyth Anion gap [Moles/Vol] 12.4 mmol/L Normal [facility] Comment on above: Performed By: #### L IPA, VIJI, CMP ####[facility] [address] [place], [place] [address]Dr. Tadeo Smyth AST [Catalytic activity/Vol] 18 U/L Normal 15-37 [facility] Comment on above: Performed By: #### L IPA VIJI, CMP ####[facility] Uclaxhneik[address] [place], [place] [address]Dr. Tadeo Smyth Bilirubin [Mass/Vol] 0.3 mg/dL Normal 0.2-1.0 [facility] Comment on above: Performed By: #### L IPA VIJI, CMP ####[facility] Aeqckjpvus[address] [place], [place] [address]Dr. Tadeo Smyth Calcium [Mass/Vol] 9.1 mg/dL Normal 8.5-10.1 [facility] Comment on above: Performed By: #### L IPA VIJI, CMP ####[facility] Axkkqtwolw[address] [place], [place] [address]Dr. Tadeo Smyth Chloride [Moles/Vol] 104 mmol/L Normal 98-107 [facility] Comment on above: Performed By: #### L IPA, VIJI, CMP ####[facility] Rnxurejyzf[address] [place], [place] [address]Dr. Tadeo Smyth CO2 [Moles/Vol] 25.0 mmol/L Normal 21.0-32.0 [facility] Comment on above: Performed By: #### L IPA, VIJI, CMP ####[facility] Moirvyphpo[address] [place], [place] [address]Dr. Tadeo Smyth Creatinine [Mass/Vol] 0.87 mg/dL Normal 0.55-1.02 [facility] Comment on above: Performed By: #### L VIJI HALL, CMP ####[facility] Rxapfdvozn25[address] [place] [address]Dr. Tadeo Smyth EGFR-AF FIJIAN >60 Normal >=60 [facility] Comment on above: Performed By: #### L VIJI HALL, CMP ####[facility] Zujejsapvt0743 [place] [address]Dr. Tadeo Smyth EGFR-NON AF FIJIAN >60 Normal >=60 [facility] Comment on above: Performed By: #### L VIJI HALL, CMP ####[facility] Yqvywkgeva4061 [place] [address]Dr. Tadeo Haja Globulin (S) [Mass/Vol] 3.9 g/dL Normal [facility] Comment on above: Performed By: #### L VIJI HALL, CMP ####[facility] Wjrviymxhv5[address] [place] [address]Dr. Tadeo Haja Glucose [Mass/Vol] 169 mg/dL Critically high 74-106 [facility] Comment on above: Performed By: #### L VIJI HALL, CMP ####[facility] Fkknhmdlof[address] [place] [address]Dr. Tadeo Smyth Potassium [Moles/Vol] 3.4 mmol/L Critically low 3.5-5.1 [facility] Comment on above: Performed By: #### L VIJI HALL, CMP ####[facility] Isopbkqjat3874 [place] [address]Dr. Tadeo Haja Protein [Mass/Vol] 7.4 g/dL Normal 6.4-8.2 [facility] Comment on above: Performed By: #### L VIJI HALL, CMP ####[facility] Gozvpfit[address] [place], [place] [address]Dr. Tadeo Smyth Sodium [Moles/Vol] 138 mmol/L Normal 136-145 [facility] Comment on above: Performed By: #### L VIJI HALL, CMP ####[facility] Favzadbmhm4[address] [place], [place] [address]Qj. Tadeo Smyth Urea nitrogen [Mass/Vol] 23.0 mg/dL Critically high 7.0-18.0 [facility] Comment on above: Performed By: #### L VIJI HALL CMP ####[facility] Exsm[address] [place], [place] [address]Wh. Tadeo Smyth Urea nitrogen/Creatinine [Mass ratio] 26.4 mg/mg Normal [facility] Comment on above: Performed By: #### L VIJI HALL CMP ####[facility] Yqpcx[address]spr13[address] [place], [place] [address]Wh. T[address] CT enterographyon 11-04-2022 CT enterography [facility] Main [place] [id number] CT Scan Report Signed Patient: Constantino Cardoso MR#: [id number] : 1970 Acct:[id number] Age/Sex: 52 / F ADM Date: 11/04/22 Loc: CT Room: Type: [facility] Attending Dr: Jennie Ayon [...] Bateman Jr., D.O.11/04/2022 11:17 AM Dictation Location: [place] [address] Transcribed By: [facility] 11/04/22 111 Dictated By: Tiburcio Bateman Jr, DO 11/04/22 111 Signed By: 11/04/22 1117 Normal [facility] AMYLASEon 11-02-2022 Amylase [Catalytic activity/Vol] 40 U/L Normal 25-115 [facility] Comment on above: Performed By: #### L IPA, MG, CMP, VIJI ####[facility] Cxotmdpkmn0874 [place] [address]Dr. Tadeo Smyth CBC AUTO DIFFon 11-02-2022 BASO # 0.0 103/ul Normal 0.0-0.1 [facility] Comment on above: Performed By: #### C BC ####[facility] Wgoceqqnhl9767 [place] [address]Dr. Tadeo Smyth Basophils/100 WBC (Bld) 0.5 % Normal 0.2-2.0 [facility] Comment on above: Performed By: #### C BC ####[facility] Qtwhpbrcbk3323 [place] [address]DrNeo Smyth EO # 0.1 103/ul Normal 0.0-0.7 [facility] Comment on above: Performed By: #### C BC ####[facility] Mjclmplllm8174 [place] [address]Dr. Tadeo Smyth Eosinophils/100 WBC (Bld) 2.8 % Normal 0.9-7.0 [facility] Comment on above: Performed By: #### C BC ####[facility] Hstzastuic9967 [place] [address]DrNeo Smyth Erythrocyte distribution width (RBC) [Ratio] 13.3 % Normal 11.0-15.0 [facility] Comment on above: Performed By: #### C BC ####[facility] Stujkrseqb6889 [place] [address]Dr. Tadeo Smyth Hematocrit (Bld) [Volume fraction] 35.6 % Critically low 36.0-48.0 [facility] Comment on above: Performed By: #### C BC ####[facility] Iwgmvhzujl6775 [place] [address]Dr. Tadeo Smyth Hemoglobin (Bld) [Mass/Vol] 11.3 g/dL Critically low 12.0-16.0 [facility] Comment on above: Performed By: #### C BC ####[facility] Brsbffvcxs[address] [place], [place] [address]Dr. Tadeo Smyth IG # 0.01 10e3/ul Normal 0.00-0.03 [facility] Comment on above: Performed By: #### C BC ####[facility] Kgpdytziwe[address] [place], [place] [address]Dr. Tadeo Smyth IG % 0.2 % Normal 0.0-0.5 [facility] Comment on above: Performed By: #### C BC ####[facility] Lvreqzzhbj[address] [place], [place] [address]DrNeo Tadeo Smyth LYMPH # 1.5 103/ul Normal 1.2-3.8 [facility] Comment on above: Performed By: #### C BC ####[facility] Qhqvblhkcu[address] [place], [place] [address]DrNeo Tadeo Smyth Lymphocytes/100 WBC (Bld) 34.9 % Normal 20.5-60.0 [facility] Comment on above: Performed By: #### C BC ####[facility] Verdvbjgap[address] [place], [place] [address]DrNeo Tadeo Smyth MANUAL DIFF REQ NO Normal [facility] Comment on above: Performed By: #### C BC ####[facility] Hyutazkbsc415[address] [place], [place] [address]Dr. Tadeo Smyth MCH (RBC) [Entitic mass] 28.8 pg Normal 26.7-34.0 [facility] Comment on above: Performed By: #### C BC ####[facility] Afyrgbfygg1423 [place] [address]Dr. Margotnicole Smyth MCHC (RBC) [Mass/Vol] 31.7 g/dL Normal 29.9-35.2 [facility] Comment on above: Performed By: #### C BC ####[facility] Rasbvspifq[address] [place], [place] [address]DrNeo Smyth MCV (RBC) [Entitic vol] 90.8 fL Normal 81.0-99.0 [facility] Comment on above: Performed By: #### C BC ####[facility] Guiupjozbv[address] [place], [place] [address]DrNeo Smyth MONO # 0.3 103/ul Normal 0.3-0.8 [facility] Comment on above: Performed By: #### C BC ####[facility] Mdvsqsvnvt[address] [place], [place] [address]Dr. Tadeo Smyth Monocytes/100 WBC (Bld) 6.9 % Normal 1.7-12.0 [facility] Comment on above: Performed By: #### C BC ####[facility] Yyvurpnefh[address] [place], [place] [address]DrNeo Smyth NEUT # 2.4 103/ul Normal 1.4-6.5 [facility] Comment on above: Performed By: #### C BC ####[facility] Zibysysfut[address] [place], [place] [address]DrNeo Smyth Neutrophils/100 WBC (Bld) 54.7 % Normal 43.0-75.0 [facility] Comment on above: Performed By: #### C BC ####[facility] Qdpjsjdeon9[address] [place], [place] [address]DrNeo Smyth Platelet mean volume (Bld) [Entitic vol] 8.9 fL Critically low 9.5-13.5 [facility] Comment on above: Performed By: #### C BC ####[facility] Ynxcxkraht[address] [place], [place] [address]Dr. Tadeo Smyth PLT 316 103/ul Normal 150-450 [facility] Comment on above: Performed By: #### C BC ####[facility] Acpditucoz2621 [place] [address]Dr. Tadeo Smyth RBC 3.92 106/ul Critically low 4.20-5.40 [facility] Comment on above: Performed By: #### C BC ####[facility] Tvvimtqujs2370 [place] [address]Dr. Tadeo Smyth WBC 4.4 103/ul Normal 4.0-11.0 [facility] Comment on above: Performed By: #### C BC ####[facility] Ibzxfjpbuy[address] [place], [place] [address]Dr. Tadeo Smyth H PYLORI ANTIBODY IGGon 10-07 H. PYLORI IGG ABS 0.12 Index Value Normal 0.00-0.79 [facility] Comment on above: Result Comment: Nega tive <0.80 Equivocal 0.80 - 0.89 Positive >0.89 Performed By: #### H PYLLC ####[facility] Hzzymmgdtm6406 [place] [address]Dr. Tadeo Smyth LIPASEon 11-02-2022 Lipase [Catalytic activity/Vol] 58.0 U/L Critically low 73.0-393.0 [facility] Comment on above: Performed By: #### L IPA, MG, CMP, VIJI ####[facility] Mafcvkracu4112 [place] [address]Dr. Tadeo Smyth MAGNESIUMon 11-02-2022 Magnesium [Mass/Vol] 1.8 mg/dL Normal 1.8-2.4 [facility] Comment on above: Performed By: #### L IPA, MG, CMP, VIJI ####[facility] Gjlmnuk[address] [place], [place] [address]DrNeo Tadeo Smyth PROF 14(COMP METB)on 023 Albumin [Mass/Vol] 3.2 g/dL Critically low 3.4-5.0 [facility] Comment on above: Performed By: #### L IPA, MG, CMP, VIJI ####[facility] Wozzqqdttf9258 [place] [address]Dr. Tadeo Smyth Albumin/Globulin [Mass ratio] 1.0 {ratio} Normal [facility] Comment on above: Performed By: #### L IPA, MG, CMP, VIJI ####[facility] Miwmjusywi9503 [place] [address]Dr. Tadeo Smyth ALP [Catalytic activity/Vol] 138 U/L Critically high 46-116 [facility] Comment on above: Performed By: #### L IPA, MG, CMP, VIJI ####[facility] Swndbojxlj3985 [place] [address]Dr. Tadeo Smyth ALT [Catalytic activity/Vol] 22 U/L Normal 14-59 [facility] Comment on above: Performed By: #### L IPA, MG, CMP, VIJI ####[facility] Xtwuifphxl7225 [place] [address]Dr. Tadeo Smyth Anion gap [Moles/Vol] 10.0 mmol/L Normal [facility] Comment on above: Performed By: #### L IPA, MG, CMP, VIJI ####[facility] Wyzjzsphld[address] [place], [place] [address]Dr. Tadeo Smyth AST [Catalytic activity/Vol] 18 U/L Normal 15-37 [facility] Comment on above: Performed By: #### L IPA, MG, CMP, VIJI ####[facility] Nxegdhrgsr2187 [place] [address]Dr. Tadeo Smyth Bilirubin [Mass/Vol] 0.5 mg/dL Normal 0.2-1.0 [facility] Comment on above: Performed By: #### L IPA, MG, CMP, VIJI ####[facility] Keeecovfqj6947 [place] [address]Dr. Tadeo Smyth Calcium [Mass/Vol] 8.9 mg/dL Normal 8.5-10.1 [facility] Comment on above: Performed By: #### L IPA, MG, CMP, VIJI ####[facility] Aljtneebjg9299 [place] [address]Dr. Tadeo Smyth Chloride [Moles/Vol] 107 mmol/L Normal 98-107 [facility] Comment on above: Performed By: #### L IPA, MG, CMP, VIJI ####[facility] Mijyzyelgu9731 [place] [address]Dr. Tadeo Smyth CO2 [Moles/Vol] 28.8 mmol/L Normal 21.0-32.0 [facility] Comment on above: Performed By: #### L IPA, MG, CMP, VIJI ####[facility] Kbe[address]rwwxt[address] [place], [place] [address]Dr. Tadeo Smyth Creatinine [Mass/Vol] 0.74 mg/dL Normal 0.55-1.02 [facility] Comment on above: Performed By: #### L IPA, MG, CMP, VIJI ####[facility] Mrnzeaixbt[address] [place], [place] [address]Dr. Margotnicole Smyth EGFR-AF FIJIAN >60 Normal >=60 [facility] Comment on above: Performed By: #### L IPA, MG, CMP, VIJI ####[facility] Flbjwpwqvf[address] [place], [place] [address]Dr. Tadeo Smyth EGFR-NON AF FIJIAN >60 Normal >=60 [facility] Comment on above: Performed By: #### L IPA, MG, CMP, VIJI ####[facility] Xxelsswfpx[address] [place], [place] [address]Dr. Tadeo Smyth Globulin (S) [Mass/Vol] 3.3 g/dL Normal [facility] Comment on above: Performed By: #### L IPA, MG, CMP, VIJI ####[facility] Dulkxvznzc9[address] [place], [place] [address]Dr. Margotnicole Smyth Glucose [Mass/Vol] 96 mg/dL Normal 74-106 [facility] Comment on above: Performed By: #### L IPA, MG, CMP, VIJI ####[facility] Dfmygtvaga7[address] [place], [place] [address]Dr. Margotnicole Smyth Potassium [Moles/Vol] 3.8 mmol/L Normal 3.5-5.1 [facility] Comment on above: Performed By: #### L IPA, MG, CMP, VIJI ####[facility] Gcpturpmun1455 [place] [address]Dr. Tadeo Smyth Protein [Mass/Vol] 6.5 g/dL Normal 6.4-8.2 [facility] Comment on above: Performed By: #### L IPA, MG, CMP, VIJI ####[facility] Yucmqwcsqe5799 [place] [address]Dr. Tadeo Smyth Sodium [Moles/Vol] 142 mmol/L Normal 136-145 [facility] Comment on above: Performed By: #### L IPA, MG, CMP, VIJI ####[facility] Eezprfpkwt024[address] [place], [place] [address]Dr. Tadeo Smyth Urea nitrogen [Mass/Vol] 8.0 mg/dL Normal 7.0-18.0 [facility] Comment on above: Performed By: #### L IPA, MG, CMP, VIJI ####[facility] Oqckbpgenw[address] [place], [place] [address]Dr. Tadeo Smyth Urea nitrogen/Creatinine [Mass ratio] 10.8 mg/mg Normal [facility] Comment on above: Performed By: #### L IPA, MG, CMP, VIJI ####[facility] Snhtzgxumj[address] [place], [place] [address]Dr. Tadeo Smyth AMMONIAon 11-01-2022 Ammonia (P) [Moles/Vol] 18 umol/L Normal 11-32 [facility] Comment on above: Performed By: #### A MM ####[facility] Htioftfhcf[address] [place], [place] [address]Dr. Tadeo Smyth AMYLASEon 11-01-2022 Amylase [Catalytic activity/Vol] 43 U/L Normal 25-115 [facility] Comment on above: Performed By: #### M G, VIJI, LIPA, CMP ####[facility] Erejbhzuou[address] [place], [place] [address]Dr. Tadeo Smyth CBC AUTO DIFFon 11-01-2022 BASO # 0.0 103/ul Normal 0.0-0.1 [facility] Comment on above: Performed By: #### C BC ####[facility] Tumugkqxau[address] [place], [place] [address]Dr. Tadeo Smyth Basophils/100 WBC (Bld) 0.6 % Normal 0.2-2.0 [facility] Comment on above: Performed By: #### C BC ####[facility] Jvgzyyswqt0311 [place] [address]Dr. Tadeo Smyth EO # 0.1 103/ul Normal 0.0-0.7 [facility] Comment on above: Performed By: #### C BC ####[facility] Eeyauontpl[address] [place], [place] [address]Dr. Tadeo Smyth Eosinophils/100 WBC (Bld) 1.5 % Normal 0.9-7.0 [facility] Comment on above: Performed By: #### C BC ####[facility] Ypdzmphlwu[address] [place], [place] [address]Dr. Tadeo Smyth Erythrocyte distribution width (RBC) [Ratio] 13.5 % Normal 11.0-15.0 [facility] Comment on above: Performed By: #### C BC ####[facility] Oapxhzecrc[address] [place], [place] [address]Dr. Tadeo Smyth Hematocrit (Bld) [Volume fraction] 37.7 % Normal 36.0-48.0 [facility] Comment on above: Performed By: #### C BC ####[facility] Uxftxtsecg[address] [place], [place] [address]Dr. Tadeo Smyth Hemoglobin (Bld) [Mass/Vol] 12.5 g/dL Normal 12.0-16.0 [facility] Comment on above: Performed By: #### C BC ####[facility] Eixaauihvi[address] [place], [place] [address]Dr. Tadeo Smyth IG # 0.02 10e3/ul Normal 0.00-0.03 [facility] Comment on above: Performed By: #### C BC ####[facility] Eshkxekyco[address] [place], [place] [address]Dr. Tadeo Smyth IG % 0.4 % Normal 0.0-0.5 [facility] Comment on above: Performed By: #### C BC ####[facility] Mrwbidqeqn[address] [place], [place] [address]Dr. Tadeo Smyth LYMPH # 1.3 103/ul Normal 1.2-3.8 [facility] Comment on above: Performed By: #### C BC ####[facility] Zfjsmrbzei7926 [place] [address]Dr. Margotnicole Smyth Lymphocytes/100 WBC (Bld) 23.9 % Normal 20.5-60.0 [facility] Comment on above: Performed By: #### C BC ####[facility] Vtvqhcyyvx5949 [place] [address]Dr. Tadeo Smyth MANUAL DIFF REQ NO Normal [facility] Comment on above: Performed By: #### C BC ####[facility] Tegztzvglb3434 [place] [address]Dr. Tadeo Smyth MCH (RBC) [Entitic mass] 29.8 pg Normal 26.7-34.0 [facility] Comment on above: Performed By: #### C BC ####[facility] [address]wnyhjz[address] [place], [place] [address]Dr. Margotnicole Smyth MCHC (RBC) [Mass/Vol] 33.2 g/dL Normal 29.9-35.2 [facility] Comment on above: Performed By: #### C BC ####[facility] Xjdylohoez[address] [place], [place] [address]Dr. Tadeo Smyth MCV (RBC) [Entitic vol] 89.8 fL Normal 81.0-99.0 [facility] Comment on above: Performed By: #### C BC ####[facility] Tyigrtadxd[address] [place], [place] [address]Dr. Tadeo Smyth MONO # 0.3 103/ul Normal 0.3-0.8 [facility] Comment on above: Performed By: #### C BC ####[facility] Jucfdafiea[address] [place], [place] [address]Dr. Tadeo Smyth Monocytes/100 WBC (Bld) 5.2 % Normal 1.7-12.0 [facility] Comment on above: Performed By: #### C BC ####[facility] Fasedcihfk[address] [place], [place] [address]Dr. Tadeo Smyth NEUT # 3.6 103/ul Normal 1.4-6.5 [facility] Comment on above: Performed By: #### C BC ####[facility] Kxbxhbcnum5453 [place] [address]Dr. Tadeo Smyth Neutrophils/100 WBC (Bld) 68.4 % Normal 43.0-75.0 [facility] Comment on above: Performed By: #### C BC ####[facility] Rdwqskmxdf8483 [place] [address]Dr. Tadeo Smyth Platelet mean volume (Bld) [Entitic vol] 9.0 fL Critically low 9.5-13.5 [facility] Comment on above: Performed By: #### C BC ####[facility] Grsrhjukhn0786 [place] [address]Dr. Tadeo Smyth PLT 356 103/ul Normal 150-450 [facility] Comment on above: Performed By: #### C BC ####[facility] Joysglhgvk[address] [place], [place] [address]Dr. Tadeo Smyth RBC 4.20 106/ul Normal 4.20-5.40 [facility] Comment on above: Performed By: #### C BC ####[facility] Etbmjblnok[address] [place], [place] [address]Dr. Tadeo Smyth WBC 5.2 103/ul Normal 4.0-11.0 [facility] Comment on above: Performed By: #### C BC ####[facility] Ozafuciywe[address] [place], [place] [address]Dr. Tadeo Smyth CT ABD/PELV W CONon 11-01-19 CT ABD/PELV W CON Normal [facility] CULTURE BLOODon 11-01-2022 Microscopic examination of blood, culture Culture Observations: NO GROWTH AT 5 DAYS. Isolate 1 BC_BA_NA Normal [facility] Comment on above: Performed By: #### B LDCX2 ####[facility] Jgdhctqkhc[address] [place], [place] [address]Dr. Tadeo Smyth Performed By: #### B LDCX1 ####[facility] Wpqrebgidx1796 [place] [address]Dr. Tadeo Smyth CULTURE URINEon 11-01-2022 CULTURE URINE Culture Observations : LIGHT GROWTH OF MIXED GENITAL SINTIA. NO POTENTIAL PATHOGENS SEEN. Normal [facility] Comment on above: Performed By: #### U RCX ####[facility] Sjjihqderh[address] [place], [place] [address]Dr. Tadeo Smyth Covid-19 PCR ([facility])on 10-07 SARS-CoV-2 (COVID-19) RNA CHEN+probe Ql (Unsp spec) Not detected Normal NOT DETECTED [facility] Comment on above: Result Comment: When [...] for this test is supported by the [place] In[employer] of [employer] and Human Service's declaration that [...] be used). Performed By: #### C VDTBH ####[facility] Fpforyjvvz[address] [place], [place] [address]Dr. Tadeo Smyth LACTATE/LACTIC ACIDon 2022 Lactate [Moles/Vol] 0.7 mmol/L Normal 0.4-1.9 [facility] Comment on above: Performed By: #### L ACT ####[facility] Eltedngitm[address] [place], [place] [address]Dr. Tadeo Smyth LIPASEon 11-01-2022 Lipase [Catalytic activity/Vol] 58.0 U/L Critically low 73.0-393.0 [facility] Comment on above: Performed By: #### M G, VIJI, LIPA, CMP ####[facility] Binbgouief2094 [place] [address]Dr. Tadeo Smyth MAGNESIUMon 11-01-2022 Magnesium [Mass/Vol] 2.0 mg/dL Normal 1.8-2.4 [facility] Comment on above: Performed By: #### M Ayan, VIJI, LIPA, CMP ####[facility] Gpjhogebnd3285 [place] [address]Dr. Tadeo Smyth PROF 14(COMP METB)on 023 Albumin [Mass/Vol] 3.6 g/dL Normal 3.4-5.0 [facility] Comment on above: Performed By: #### M Ayan, VIJI, LIPA, CMP ####[facility] Ymspmguuje2994 [place] [address]Dr. Tadeo Smyth Albumin/Globulin [Mass ratio] 1.0 {ratio} Normal [facility] Comment on above: Performed By: #### Hanna Botello, VIJI, LIPA, CMP ####[facility] Swkkqtkwlf35[address] [place] [address]Dr. Tadeo Smyth ALP [Catalytic activity/Vol] 164 U/L Critically high 46-116 [facility] Comment on above: Performed By: #### Hanna Botello, VIJI, LIPA, CMP ####[facility] Gkxwdmnwnt4987 [place] [address]Dr. Tadeo Smyth ALT [Catalytic activity/Vol] 22 U/L Normal 14-59 [facility] Comment on above: Performed By: #### Hanna Botello, VIJI, LIPA, CMP ####[facility] Ogcearpmms74[address] [place] [address]Dr. Tadeo Smyth Anion gap [Moles/Vol] 11.5 mmol/L Normal [facility] Comment on above: Performed By: #### M Ayan, VIJI, LIPA, CMP ####[facility] Pxphqjueix8061 [place] [address]Dr. Tadeo Smyth AST [Catalytic activity/Vol] 17 U/L Normal 15-37 [facility] Comment on above: Performed By: #### Hanna Botello, VIJI, LIPA, CMP ####[facility] Elqguvazpx7090 [place] [address]Dr. Tadeo Smyth Bilirubin [Mass/Vol] 0.4 mg/dL Normal 0.2-1.0 [facility] Comment on above: Performed By: #### M G, VIJI, LIPA, CMP ####[facility] Nnnyqlekso1438 [place] [address]Dr. Tadeo Smyth Calcium [Mass/Vol] 9.1 mg/dL Normal 8.5-10.1 [facility] Comment on above: Performed By: #### M G, VIJI, LIPA, CMP ####[facility] [address] [place], [place] [address]Dr. Ta[place] Smyth Chloride [Moles/Vol] 105 mmol/L Normal 98-107 [facility] Comment on above: Performed By: #### M G, VIJI, LIPA, CMP ####[facility] [address] [place], [place] [address]Dr. Tadeo Smyth CO2 [Moles/Vol] 27.6 mmol/L Normal 21.0-32.0 [facility] Comment on above: Performed By: #### M G, VIJI, LIPA, CMP ####[facility] Dbxyttdz[address] [place], [place] [address]Dr. Tadeo Smyth Creatinine [Mass/Vol] 0.72 mg/dL Normal 0.55-1.02 [facility] Comment on above: Performed By: #### M G, VIJI, LIPA, CMP ####[facility] Mzfn[address] [place], [place] [address]Dr. Tadeo Smyth EGFR-AF FIJIAN >60 Normal >=60 [facility] Comment on above: Performed By: #### M G, VIJI, LIPA, CMP ####[facility] X[address] [place], [place] [address]Dr. Tadeo Smyth EGFR-NON AF FIJIAN >60 Normal >=60 [facility] Comment on above: Performed By: #### M G, VIJI, LIPA, CMP ####[facility] Makrfzwfua[address] [place], [place] [address]Dr. Tadeo Smyth Globulin (S) [Mass/Vol] 3.6 g/dL Normal [facility] Comment on above: Performed By: #### M Ayan, VIJI LIPA, CMP ####[facility] [address] [place] [address]Dr. Tadeo Smyth Glucose [Mass/Vol] 100 mg/dL Normal 74-106 [facility] Comment on above: Performed By: #### M Ayan, VIJI, LIPA, CMP ####[facility] Vgig[address] [place], [place] [address]Dr. Tadeo Smyth Potassium [Moles/Vol] 4.1 mmol/L Normal 3.5-5.1 [facility] Comment on above: Performed By: #### VIJI White LIPA, CMP ####[facility] Yjjtsp[address] [place], [place] [address]Dr. Tadeo Smyth Protein [Mass/Vol] 7.2 g/dL Normal 6.4-8.2 [facility] Comment on above: Performed By: #### VIJI White, LIPA, CMP ####[facility] U[address] [place], [place] [address]Dr. Tadeo Smyth Sodium [Moles/Vol] 140 mmol/L Normal 136-145 [facility] Comment on above: Performed By: #### M Ayan, VIJI, LIPA, CMP ####[facility] Mwmkiuq[address] [place], [place] [address]Dr. Tadeo Smyth Urea nitrogen [Mass/Vol] 15.0 mg/dL Normal 7.0-18.0 [facility] Comment on above: Performed By: #### M Ayan, VIJI, LIPA, CMP ####[facility] Nmynsrftqr[address] [place], [place] [address]Dr. Tadeo Smyth Urea nitrogen/Creatinine [Mass ratio] 20.8 mg/mg Normal [facility] Comment on above: Performed By: #### M Ayan, VIJI, LIPA, CMP ####[facility] [address] [place] [address]Dr. Tadeo Smyth UA RANDOM W/MICROSCOPICon BACTERIA TRACE Abnormal NONE SEEN [facility] Comment on above: Performed By: #### U AMIC ####[facility] [address] [place] [address]Dr. Tadeo Smyth Bilirubin Ql (U) Negative Normal NEGATIVE [facility] Comment on above: Performed By: #### U AMIC ####[facility] [address] [place] [address]Dr. Tadeo Smyth CAST NONE SEEN Normal NONE SEEN [facility] Comment on above: Performed By: #### U AMIC ####[facility] Hogdreunvw[address] [place], [place] [address]Dr. Tadeo Smyth Clarity (U) CLEAR Normal CLEAR [facility] Comment on above: Performed By: #### U AMIC ####[facility] Otdtw[address] [place], [place] [address]Dr. Tadeo Smyth Color (U) LT. YELLOW Normal YELLOW [facility] Comment on above: Performed By: #### U AMIC ####[facility] Sywudedylo[address] [place], [place] [address]Dr. Tadeo Smyth Crystals LM Nom (Urine sed) NONE SEEN Normal NONE SEEN [facility] Comment on above: Performed By: #### U AMIC ####[facility] I[address] [place], [place] [address]Dr. Tadeo Smyth Epithelial cells LM Ql (Urine sed) RARE Normal NONE SEEN /RARE [facility] Comment on above: Performed By: #### U AMIC ####[facility] Wnafwethhr[address] [place], [place] [address]Dr. Tadeo Smyth Glucose Ql (U) Negative Normal NEGATIVE [facility] Comment on above: Performed By: #### U AMIC ####[facility] Xymijkbgla[address] [place], [place] [address]Dr. Tadeo Smyth Hemoglobin Ql (U) TRACE-LYSED Abnormal NEGATIVE [facility] Comment on above: Performed By: #### U AMIC ####[facility] Bmarldwqev[address] [place], [place] [address]Dr. Tadeo Smyth Ketones Ql (U) Negative Normal NEGATIVE [facility] Comment on above: Performed By: #### U AMIC ####[facility] [address] [place] [address]Dr. Tadeo Smyth LEUKOCYTES Negative Normal NEGATIVE [facility] Comment on above: Performed By: #### U AMIC ####[facility] [address] [place] [address]Dr. Tadeo Smyth MUCOUS NONE SEEN Normal NONE SEEN [facility] Comment on above: Performed By: #### U AMIC ####[facility] V[address] [place] [address]Dr. Tadeo Smyth Nitrite Ql (U) Negative Normal NEGATIVE [facility] Comment on above: Performed By: #### U AMIC ####[facility] Qabr[address]sh[address] [place], [place] [address]Dr. Tadeo Smyth pH (U) 6.0 [pH] Normal 5-9 [facility] Comment on above: Performed By: #### U AMIC ####[facility] N[address] [place], [place] [address]Dr. Tadeo Smyth RBC 0-2 Normal 0-2 [facility] Comment on above: Performed By: #### U AMIC ####[facility] [address]pt[address] [place], [place] [address]Dr. Tadeo Smyth SPEC GRAVITY 1.010 Normal 1.005-<=1.0 25 [facility] Comment on above: Performed By: #### U AMIC ####[facility] Yyvp[address] [place], [place] [address]Dr. Tadeo Smyth UA PROTEIN Negative Normal NEGATIVE/ TRACE [facility] Comment on above: Performed By: #### U AMIC ####[facility] Avyiuf[address]qs[address] [place], [place] [address]Dr. Tadeo Smyth Urobilinogen Qn (U) 0.2 {Benito'U}/dL Normal 0.2 - 1. 0 [facility] Comment on above: Performed By: #### U AMIC ####[facility] [address] [place] [address]Dr. Tadeo Smyth WBC 0-2 Abnormal NONE SEEN [facility] Comment on above: Performed By: #### U AMIC ####[facility] [address] [place] [address]DrNeo Smyth Activated partial thrombopla stin time (aPTT) in platelet poor plasma by coagulation aOrdered By: Conner Griffith on 10-26-2022 aPTT Coag (PPP) [Time] 30.8 s 25.1-36.5 [facility] Albumin [Mass/volume] in Ser um or PlasmaOrdered By: Conner Griffith on 10-26-2022 Albumin [Mass/Vol] 3.6 g/dL 3.2-5.5 [facility] Automated erythrocytes count in urine sediment (number/area)Ordered By: Connre Griffith on 10-26-2022 RBC Auto (Urine sed) [#/Area] 0-1 [HPF] 0-4 [facility] Automated leukocytes count i n urine sediment (number/area)Ordered By: Conner Griffith on 10-26-2022 WBC Auto (Urine sed) [#/Area] None seen [HPF] 0-4 [facility] Basophils Auto (Bld) [#/Vol] Ordered By: Conner Griffith on 10-26-2022 Basophils (Bld) [#/Vol] 0.0 10*3/uL 0.0-0.2 [facility] Basophils/100 WBC Auto (Bld) Ordered By: Conner Griffith on 10-26-2022 Basophils/100 WBC (Bld) 0.6 % . [facility] Bilirubin Test strip Ql (U)O rdered By: Conner Griffith on 10-26-2022 Bilirubin Ql (U) Negative Negative [facility] CT abdomen pelvis w conon CT abdomen pelvis w con [facility] [place] [address] CT Scan Report Signed Patient: Constantino Cardoso MR#: [id number] : 1970 Acct:[id number] Age/Sex: 52 / F ADM Date: 10/26/22 Loc: ER Room: Type: [facility] ER Attending Dr: Copies to: Conner [...] Columba Domínguez M.D.10/26/2022 7:46 AM Dictation Location: [place] [address] Transcribed By: [facility] 10/26/22745 Dictated By: Columba Domínguez MD 10/26/22 0738 Signed By: 10/26/22745 [facility] Color Auto (U)Ordered By: Kevin Griffith on 10-26-2022 Color (U) Yellow Yellow [facility] Complete Blood Count Auto Di ffon 10-26-2022 Basophils (Bld) [#/Vol] 0.0 10*3/uL Normal 0.0-0.2 [facility] Comment on above: Result Comment: PERF ORMED BY: [place] [address] PATHOLOGIST MIXER OPERATOR [employer] ROOSEVELT KEYES M.D. Performed By: #### H EPATIC, CBC, BMP, LIPASE #### [address] Basophils/100 WBC (Bld) 0.6 % Normal . [facility] Comment on above: Performed By: #### H EPATIC, CBC, BMP, LIPASE #### [address] Eosinophils (Bld) [#/Vol] 0.2 10*3/uL Normal 0.0-0.45 [facility] Comment on above: Performed By: #### H EPATIC, CBC, BMP, LIPASE #### [address] Eosinophils/100 WBC (Bld) 3.3 % Normal . [facility] Comment on above: Performed By: #### H EPATIC, CBC, BMP, LIPASE #### [facility] [address] [place] [address] Erythrocyte distribution width (RBC) [Ratio] 14.5 % Normal 11.9-15.3 [facility] Comment on above: Performed By: #### H EPATIC, CBC, BMP, LIPASE #### [facility] [address] [place] [address] Hematocrit (Bld) [Volume fraction] 36.7 % Normal 34.0-46.4 [facility] Comment on above: Performed By: #### H EPATIC, CBC, BMP, LIPASE #### [facility] [address] [place] [address] Hemoglobin (Bld) [Mass/Vol] 12.1 g/dL Normal 11.8-15.4 [facility] Comment on above: Performed By: #### H EPATIC, CBC, BMP, LIPASE #### [address] Lymphocytes (Bld) [#/Vol] 1.9 10*3/uL Normal 1.00-4.8 [facility] Comment on above: Performed By: #### H EPATIC, CBC, BMP, LIPASE #### [address] Lymphocytes/100 WBC (Bld) 29.7 % Normal . [facility] Comment on above: Performed By: #### H EPATIC, CBC, BMP, LIPASE #### [address] MCH (RBC) [Entitic mass] 29.3 pg Normal 24.7-34.3 [facility] Comment on above: Performed By: #### H EPATIC, CBC, BMP, LIPASE #### [address] MCV (RBC) [Entitic vol] 88.5 fL Normal 80-100 [facility] Comment on above: Performed By: #### H EPATIC, CBC, BMP, LIPASE #### [address] Mean Corpuscular HGB Conc 33.1 g/dL Normal 32.0-35.0 [facility] Comment on above: Performed By: #### H EPATIC, CBC, BMP, LIPASE #### [address] Monocytes (Bld) [#/Vol] 0.4 10*3/uL Normal 0.0-0.8 [facility] Comment on above: Performed By: #### H EPATIC, CBC, BMP, LIPASE #### [address] Monocytes/100 WBC (Bld) 16.27 % Normal 0.00-20.00 [facility] Comment on above: Performed By: #### H EPATIC, CBC, BMP, LIPASE #### [address] Monocytes/100 WBC (Bld) 7.1 % Normal . [facility] Comment on above: Performed By: #### H EPATIC, CBC, BMP, LIPASE #### [facility] [address] [place] [address] Neutrophils (Bld) [#/Vol] 3.7 10*3/uL Normal 1.8-7.7 [facility] Comment on above: Performed By: #### H EPATIC, CBC, BMP, LIPASE #### [address] Neutrophils/100 WBC (Bld) 59.3 % Normal . [facility] Comment on above: Performed By: #### H EPATIC, CBC, BMP, LIPASE #### [address] NRBC% 0.3 /100{WBC} Normal 0-0.5 [facility] Comment on above: Performed By: #### H EPATIC, CBC, BMP, LIPASE #### [address] Platelet mean volume (Bld) [Entitic vol] 7.5 fL Normal 6.3-10.7 [facility] Comment on above: Performed By: #### H EPATIC, CBC, BMP, LIPASE #### [address] Platelets (Bld) [#/Vol] 379 10*3/uL Normal 150-450 [facility] Comment on above: Performed By: #### H EPATIC, CBC, BMP, LIPASE #### [address] RBC (Bld) [#/Vol] 4.14 10*6/uL Normal 3.60-5.00 [facility] Comment on above: Performed By: #### H EPATIC, CBC, BMP, LIPASE #### [address] WBC (Bld) [#/Vol] 6.3 10*3/uL Normal 3.8-11.6 [facility] Comment on above: Performed By: #### H EPATIC, CBC, BMP, LIPASE #### [facility] [address] [place] [address] Comprehensive Metabolic Pane miranda 10-26-2022 Albumin [Mass/Vol] 3.6 g/dL Normal 3.2-5.5 [facility] Comment on above: Performed By: #### H EPATIC, CBC, BMP, LIPASE #### [facility] [address] [place] [address] Albumin/Globulin [Mass ratio] 1.1 {ratio} Normal [facility] Comment on above: Performed By: #### H EPATIC, CBC, BMP, LIPASE #### [facility] [address] [place] [address] ALP [Catalytic activity/Vol] 121 U/L High 32-92 [facility] Comment on above: Performed By: #### H EPATIC, CBC, BMP, LIPASE #### [facility] [address] [place] [address] ALT [Catalytic activity/Vol] 18 U/L Normal 10-60 [facility] Comment on above: Performed By: #### H EPATIC, CBC, BMP, LIPASE #### [facility] [address] [place] [address] Anion gap [Moles/Vol] 11.3 mmol/L Normal 6.0-15.0 [facility] Comment on above: Performed By: #### H EPATIC, CBC, BMP, LIPASE #### [facility] [address] [place] [address] AST [Catalytic activity/Vol] 19 U/L Normal 10-42 [facility] Comment on above: Performed By: #### H EPATIC, CBC, BMP, LIPASE #### [facility] [address] [place] [address] Bilirubin [Mass/Vol] 0.4 mg/dL Normal 0.3-1.2 [facility] Comment on above: Performed By: #### H EPATIC, CBC, BMP, LIPASE #### [facility] [address] [place] [address] Calcium [Mass/Vol] 8.9 mg/dL Normal 8.2-10.2 [facility] Comment on above: Performed By: #### H EPATIC, CBC, BMP, LIPASE #### [facility] [address] Chloride [Moles/Vol] 108 mmol/L Normal 95-114 [facility] Comment on above: Performed By: #### H EPATIC, CBC, BMP, LIPASE #### [facility] [address] [place] [address] CO2 [Moles/Vol] 25.1 mmol/L Normal 22.0-30.0 [facility] Comment on above: Performed By: #### H EPATIC, CBC, BMP, LIPASE #### [address] Creatinine [Mass/Vol] 0.81 mg/dL Normal 0.44-1.03 [facility] Comment on above: Performed By: #### H EPATIC, CBC, BMP, LIPASE #### [facility] [address] [place] [address] Creatinine Clr Calc Pharmacy 93.01 [facility] Comment on above: Performed By: #### H EPATIC, CBC, BMP, LIPASE #### [address] Estimated GFR ( Roberto > 60 [facility] Comment on above: Result Comment: GFR estimated reference range: According to KDOQI guidelines, <60 ml/min/1.73m2 is sufficient to diagnose a patient with chronic kidney disease. Performed By: #### H EPATIC, CBC, BMP, LIPASE #### [facility] [address] [place] [address] Estimated GFR (Non- Am > 60 [facility] Comment on above: Performed By: #### H EPATIC, CBC, BMP, LIPASE #### [address] Globulin (S) [Mass/Vol] 3.2 g/dL [facility] Comment on above: Performed By: #### H EPATIC, CBC, BMP, LIPASE #### [facility] [address] Glucose [Mass/Vol] 95 mg/dL Normal 70-100 [facility] Comment on above: Result Comment: [facility] Glucose Reference Range is dependent on time and content of last meal. Glucose of more than 200 mg/dL in a nonstressed, ambulatory subject supports the diagnosis of Diabetes Mellitus. ADA recommended reference range Performed By: #### H EPATIC, CBC, BMP, LIPASE #### [address] Potassium [Moles/Vol] 3.4 mmol/L Low 3.5-5.1 [facility] Comment on above: Performed By: #### H EPATIC, CBC, BMP, LIPASE #### [address] Protein [Mass/Vol] 6.8 g/dL Normal 6.1-7.9 [facility] Comment on above: Performed By: #### H EPATIC, CBC, BMP, LIPASE #### [address] Sodium [Moles/Vol] 141 mmol/L Normal 136-146 [facility] Comment on above: Performed By: #### H EPATIC, CBC, BMP, LIPASE #### [address] Urea nitrogen [Mass/Vol] 18 mg/dL Normal 9-23 [facility] Comment on above: Performed By: #### H EPATIC, CBC, BMP, LIPASE #### [address] Creatinine and Glomerular fi ltration rate.predicted panel (S/P/Bld)Ordered By: Conner Griffith on 10-26-2022 Creatinine [Mass/Vol] 0.81 mg/dL 0.44-1.03 [facility] Dipstick and Microscopicon 0 10-26-2022 Appearance (U) Clear Normal Clear [facility] Comment on above: Order Comment: Name Collection Type:: Clean-Voided Midstream Performed By: #### H EPATIC, CBC, BMP, LIPASE #### [facility] [address] [place] [address] [place] Bacteria,Urine None Seen Normal None Seen [facility] Comment on above: Order Comment: Name Collection Type:: Clean-Voided Midstream Performed By: #### H EPATIC, CBC, BMP, LIPASE #### [facility] [address] [place] [address] [place] Bilirubin,Urine Negative Normal Negative [facility] Comment on above: Order Comment: Name Collection Type:: Clean-Voided Midstream Performed By: #### H EPATIC, CBC, BMP, LIPASE #### [address] Color (U) Yellow Normal Yellow [facility] Comment on above: Order Comment: Name Collection Type:: Clean-Voided Midstream Performed By: #### H EPATIC, CBC, BMP, LIPASE #### [address] Glucose Ql (U) Normal Normal Normal [facility] Comment on above: Order Comment: Name Collection Type:: Clean-Voided Midstream Performed By: #### H EPATIC, CBC, BMP, LIPASE #### [address] Hyaline Casts,Urine None Seen Normal 0-8 [facility] Comment on above: Order Comment: Name Collection Type:: Clean-Voided Midstream Result Comment: PERF ORMED BY: [place] [address] PATHOLOGIST MIXER OPERATOR [employer] ROOSEVELT KEYES M.D. Performed By: #### H EPATIC, CBC, BMP, LIPASE #### [address] Ketones Ql (U) Negative Normal Negative [facility] Comment on above: Order Comment: Name Collection Type:: Clean-Voided Midstream Performed By: #### H EPATIC, CBC, BMP, LIPASE #### [address] Leukocyte esterase Test strip Ql (U) 1+ High Negative [facility] Comment on above: Order Comment: Name Collection Type:: Clean-Voided Midstream Performed By: #### H EPATIC, CBC, BMP, LIPASE #### [address] Nitrite,Urine Negative Normal Negative [facility] Comment on above: Order Comment: Name Collection Type:: Clean-Voided Midstream Performed By: #### H EPATIC, CBC, BMP, LIPASE #### [address] Occult Blood,Urine Negative Normal Negative [facility] Comment on above: Order Comment: Name Collection Type:: Clean-Voided Midstream Result Comment: PERF ORMED BY: [place] [address] PATHOLOGIST MIXER OPERATOR [employer] ROOSEVELT KEYES M.D. Performed By: #### H EPATIC, CBC, BMP, LIPASE #### [address] pH (U) 6.5 [pH] Normal 5.0-9.0 [facility] Comment on above: Order Comment: Name Collection Type:: Clean-Voided Midstream Performed By: #### H EPATIC, CBC, BMP, LIPASE #### [address] Protein,Urine Negative Normal Negative [facility] Comment on above: Order Comment: Name Collection Type:: Clean-Voided Midstream Performed By: #### H EPATIC, CBC, BMP, LIPASE #### [address] RBC LM.HPF (Urine sed) [#/Area] 0 /[HPF] Normal 0-4 [facility] Comment on above: Order Comment: Name Collection Type:: Clean-Voided Midstream Performed By: #### H EPATIC, CBC, BMP, LIPASE #### [address] Specificy [place],Urine 1.019 Normal 1.001-1.030 [facility] Comment on above: Order Comment: Name Collection Type:: Clean-Voided Midstream Performed By: #### H EPATIC, CBC, BMP, LIPASE #### [facility] [address] [place] [address] Squamous Epithelial Cell,Urine 1-2 Normal 0-2 [facility] Comment on above: Order Comment: Name Collection Type:: Clean-Voided Midstream Performed By: #### H EPATIC, CBC, BMP, LIPASE #### [facility] [address] [place] [address] Urobilinogen,Urine Normal Normal Normal [facility] Comment on above: Order Comment: Name Collection Type:: Clean-Voided Midstream Performed By: #### H EPATIC, CBC, BMP, LIPASE #### [facility] [address] [place] [address] WBC,Urine None Seen Normal 0-4 [facility] Comment on above: Order Comment: Name Collection Type:: Clean-Voided Midstream Performed By: #### H EPATIC, CBC, BMP, LIPASE #### [facility] [address] [place] [address] Eosinophils Auto (Bld) [#/Vo l]Ordered By: Conner Griffith on 10-26-2022 Eosinophils (Bld) [#/Vol] 0.2 10*3/uL 0.0-0.45 [facility] Eosinophils/100 WBC Auto (Bl d)Ordered By: Conner Griffith on 10-26-2022 Eosinophils/100 WBC (Bld) 3.3 % . [facility] Erythrocyte distribution wid th Auto (RBC) [Ratio]Ordered By: Conner Griffith on 10-26-2022 Erythrocyte distribution width (RBC) [Ratio] 14.5 % 11.9-15.3 [facility] Estimated glomerular filtrat ion rate (GFR) non- AmericanOrdered By: Conner Griffith on 10-26-2022 GFR/1.73 sq M.predicted among non-blacks MDRD (S/P/Bld) [Vol rate/Area] > 60 mL/Min [facility] Globulin Calc (S) [Mass/Vol] Ordered By: Conner Griffith on 10-26-2022 Globulin (S) [Mass/Vol] 3.2 g/dL [facility] Hematocrit Auto (Bld) [Volum e fraction]Ordered By: Conner Griffith on 10-26-2022 Hematocrit (Bld) [Volume fraction] 36.7 % 34.0-46.4 [facility] Hemoglobin [Mass/volume] in BloodOrdered By: Conner Griffith on 10-26-2022 Hemoglobin (Bld) [Mass/Vol] 12.1 g/dL 11.8-15.4 [facility] Ketones Auto test strip (U) [Mass/Vol]Ordered By: Conner Griffith on 10-26-2022 Ketones (U) [Mass/Vol] Negative Negative [facility] Laboratory - Chemistry and C hemistry - challengeOrdered By: Conner Griffith on 10-26-2022 Lipase [Catalytic activity/Vol] 37.0 U/L [facility] - CoagulationOrde red By: Conner Griffith on 10-26-2022 PT Coag (PPP) [Time] 10.6 s 9.0-12.9 [facility] - UrinalysisOrder ed By: Conner Griffith on 10-26-2022 Hyaline casts LM Ql (Urine sed) None seen [LPF] 0-8 [facility] Lactic Acidon 10-26-2022 Lactate [Moles/Vol] 1.0 mmol/L Normal 0.5-2.2 [facility] Comment on above: Result Comment: PERF ORMED BY: [place] [address] PATHOLOGIST MIXER OPERATOR [employer] ROOSEVELT KEYES M.D. Performed By: #### H EPATIC, CBC, BMP, LIPASE #### [address] Leukocytes [#/volume] correc jun for nucleated erythrocytes in Blood by Automated counOrdered By: Conner Griffith on 10-26-2022 WBC corrected for nucl RBC Auto (Bld) [#/Vol] 6.3 10*3/uL 3.8-11.6 [facility] Lipaseon 10-26-2022 Lipase [Catalytic activity/Vol] 37.0 U/L Normal [facility] Comment on above: Result Comment: PERF ORMED BY: [place] [address] PATHOLOGIST MIXER OPERATOR [employer] ROOSEVELT KEYES M.D. Performed By: #### H EPATIC, CBC, BMP, LIPASE #### [facility] [address] Lymphocytes Auto (Bld) [#/Vo l]Ordered By: Conner Griffith on 10-26-2022 Lymphocytes (Bld) [#/Vol] 1.9 10*3/uL 1.00-4.8 [facility] Lymphocytes/100 WBC Auto (Bl d)Ordered By: Conner Griffith on 10-26-2022 Lymphocytes/100 WBC (Bld) 29.7 % . [facility] MCH Auto (RBC) [Entitic mass ]Ordered By: Conner Griffith on 10-26-2022 MCH (RBC) [Entitic mass] 29.3 pg 24.7-34.3 [facility] MCHC Auto (RBC) [Mass/Vol]Or dered By: Conner Griffith on 10-26-2022 MCHC (RBC) [Mass/Vol] 33.1 g/dL 32.0-35.0 [facility] [facility] MCV Auto (RBC) [Entitic vol] Ordered By: Conner Griffith on 10-26-2022 MCV (RBC) [Entitic vol] 88.5 fL 80-100 [facility] Monocyte distribution width [Entitic volume] in Blood by AutomatedOrdered By: Conner Griffith on 10-26-2022 Monocyte distribution width Auto (Bld) [Entitic vol] 16.27 % 0.00-20.00 [facility] Monocytes Auto (Bld) [#/Vol] Ordered By: Conner Griffith on 10-26-2022 Monocytes (Bld) [#/Vol] 0.4 10*3/uL 0.0-0.8 [facility] Monocytes/100 WBC Auto (Bld) Ordered By: Conner Griffith on 10-26-2022 Monocytes/100 WBC (Bld) 7.1 % . [facility] Neutrophils Auto (Bld) [#/Vo l]Ordered By: Conner Griffith on 10-26-2022 Neutrophils (Bld) [#/Vol] 3.7 10*3/uL 1.8-7.7 [facility] Neutrophils/100 WBC Auto (Bl d)Ordered By: Conner Griffith on 10-26-2022 Neutrophils/100 WBC (Bld) 59.3 % . [facility] Nitrite Test strip Ql (U)Ord ered By: Conner Griffith on 10-26-2022 Nitrite Ql (U) Negative Negative [facility] No Panel InformationOrdered By: Conner Griffith on 10-26-2022 Estimated GFR () > 60 mL/Min [facility] Comment on above: GFR estimated refere nce range: According to KDOQI guidelines, <60 ml/min/1.73m2 is sufficient to diagnose a patient with chronic kidney disease. Pharmacy Creatinine Clearance (Chem 93.01 [facility] Nucleated erythrocytes [Pres ence] in Blood by Automated countOrdered By: Conner Griffith on 10-26-2022 Nucleated RBC Auto Ql (Bld) 0.3 /100{WBC} 0-0.5 [facility] Partial Thromboplastin Timeo n 10-26-2022 aPTT Coag (Bld) [Time] 30.8 s Normal 25.1-36.5 [facility] Comment on above: Result Comment: PERF ORMED BY: [place] [address] PATHOLOGIST MIXER OPERATOR [employer] ROOSEVELT KEYES M.D. Performed By: #### H EPATIC, CBC, BMP, LIPASE #### [address] Platelet mean volume Auto (B ld) [Entitic vol]Ordered By: Conner Griffith on 10-26-2022 Platelet mean volume (Bld) [Entitic vol] 7.5 fL 6.3-10.7 [facility] Platelet poor plasma interna tional normalized ratio (INR) by coagulation assay (relatOrdered By: Conner Griffith on 10-26-2022 INR Coag (PPP) [Relative time] 0.9 {INR} [facility] Comment on above: INR Therapeutic Rang [...] 10-26-2022 Platelets (Bld) [#/Vol] 379 10*3/uL 150-450 [facility] Protein Auto test strip (U) [Mass/Vol]Ordered By: Conner Griffith on 10-26-2022 Protein (U) [Mass/Vol] Negative Negative [facility] Protein [Mass/volume] in Ser um or PlasmaOrdered By: Conner Griffith on 10-26-2022 Protein [Mass/Vol] 6.8 g/dL 6.1-7.9 [facility] Prothrombin Time INRon 10-26 INR Coag (PPP) [Relative time] 0.9 {INR} Normal [facility] Comment on above: Result Comment: INR [...] #### H EPATIC, CBC, BMP, LIPASE #### [facility] [address] PT Coag (PPP) [Time] 10.6 s Normal 9.0-12.9 [facility] Comment on above: Performed By: #### H EPATIC, CBC, BMP, LIPASE #### [facility] [address] RBC Auto (Bld) [#/Vol]Ordere d By: Conner Griffith on 10-26-2022 RBC (Bld) [#/Vol] 4.14 10*6/uL 3.60-5.00 [facility] Serum or plasma alanine cooley otransferase measurement without P-5'-P (enzymatic activiOrdered By: Conner Griffith on 10-26-2022 ALT No additional P-5'-P [Catalytic activity/Vol] 18 U/L 10-60 [facility] Serum or plasma albumin/glob ulin mass ratioOrdered By: Conner Griffith on 10-26-2022 Albumin/Globulin [Mass ratio] 1.1 {ratio} [facility] Serum or plasma alkaline aguustin sphatase measurement (enzymatic activity/volume)Ordered By: Conner Griffith on 10-26-2022 ALP [Catalytic activity/Vol] 121 U/L 32-92 [facility] Serum or plasma anion gap de terminationOrdered By: Conner Griffith on 10-26-2022 Anion gap [Moles/Vol] 11.3 mmol/L 6.0-15.0 [facility] Serum or plasma aspartate am inotransferase measurement (enzymatic activity/volume)Ordered By: Conner Griffith on 10-26-2022 AST [Catalytic activity/Vol] 19 U/L 10-42 [facility] Serum or plasma calcium julee urement (mass/volume)Ordered By: Conner Griffith on 10-26-2022 Calcium [Mass/Vol] 8.9 mg/dL 8.2-10.2 [facility] Serum or plasma chloride julio surement (moles/volume)Ordered By: Conner Griffith on 10-26-2022 Chloride [Moles/Vol] 108 mmol/L 95-114 [facility] Serum or plasma glucose julee urement (mass/volume)Ordered By: Conner Griffith on 10-26-2022 Glucose [Mass/Vol] 95 mg/dL 70-100 [facility] Comment on above: ADA recommended refe rence rangeRandom Glucose Reference Range is dependent on time and content of last meal. Glucose of more than 200 mg/dL in a nonstressed, ambulatory subject supports the diagnosis of Diabetes Mellitus. Serum or plasma potassium me asurement (moles/volume)Ordered By: Conner Griffith on 10-26-2022 Potassium [Moles/Vol] 3.4 mmol/L 3.5-5.1 [facility] Serum or plasma sodium measu rement (moles/volume)Ordered By: Conner Griffith on 10-26-2022 Sodium [Moles/Vol] 141 mmol/L 136-146 [facility] Serum or plasma total biliru bin measurement (mass/volume)Ordered By: Conner Griffith on 10-26-2022 Bilirubin [Mass/Vol] 0.4 mg/dL 0.3-1.2 [facility] Serum or plasma total carbon dioxide measurement (moles/volume)Ordered By: Conner Griffith on 10-26-2022 CO2 [Moles/Vol] 25.1 mmol/L 22.0-30.0 [facility] Serum or plasma urea nitroge n measurement (mass/volume)Ordered By: Conner Griffith on 10-26-2022 Urea nitrogen [Mass/Vol] 18 mg/dL 9-23 [facility] Specific gravity Auto test s trip (U) [Rel density]Ordered By: Conner Griffith on 10-26-2022 Specific gravity (U) [Rel density] 1.019 1.001-1.030 [facility] Squamous epithelial cells de tection in urine sediment by light microscopyOrdered By: Conner Griffith on 10-26-2022 Epithelial cells.squamous LM Ql (Urine sed) 1-2 [HPF] 0-2 [facility] Urine bacteria detection by automated methodOrdered By: Conner Griffith on 10-26-2022 Bacteria Auto Ql (U) None seen None Seen [facility] Urine clarity by refractomet ry automatedOrdered By: Conner Griffith on 10-26-2022 Clarity Refractometry automated (U) Clear Clear [facility] Urine glucose measurement by automated test strip (mass/volume)Ordered By: Conner Griffith on 10-26-2022 Glucose Auto test strip (U) [Mass/Vol] Normal mg/dL Normal [facility] Urine hemoglobin detection b y automated test stripOrdered By: Conner Griffith on 10-26-2022 Hemoglobin Auto test strip Ql (U) Negative Negative [facility] Urine lactic acid measuremen tOrdered By: Conner Griffith on 10-26-2022 Lactate (U) [Moles/Vol] 1.0 mmol/L 0.5-2.2 [facility] Urine leukocyte esterase det ection by automated test stripOrdered By: Conner Griffith on 10-26-2022 Leukocyte esterase Auto test strip Ql (U) 1+ Negative [facility] Urobilinogen Auto test strip (U) [Mass/Vol]Ordered By: Conner Griffith on 10-26-2022 Urobilinogen (U) [Mass/Vol] Normal mg/dL Normal [facility] WBC Auto (Bld) [#/Vol]Ordere d By: Conner Griffith on 10-26-2022 WBC (Bld) [#/Vol] 6.3 10*3/uL 3.8-11.6 [facility] pH Auto test strip (U)Ordere d By: Conner Griffith on 10-26-2022 pH (U) 6.5 [pH] 5.0-9.0 [facility] Auth for Release of Medical Recordson 10-25-2022 Auth for Release of Medical Records [id number]#[id number]:127 Normal [facility] CBC AUTO DIFFon 09-21-2022 BASO # 0.0 103/ul Normal 0.0-0.1 [facility] Comment on above: Performed By: #### C BC ####[facility] [address] [place] [address]Dr. Tadeo Smyth Basophils/100 WBC (Bld) 0.4 % Normal 0.2-2.0 [facility] Comment on above: Performed By: #### C BC ####[facility] [address] [place] [address]Dr. Margotnicole Smyth EO # 0.1 103/ul Normal 0.0-0.7 [facility] Comment on above: Performed By: #### C BC ####[facility] H[address] [place], [place] [address]Dr. Tadeo Haja Eosinophils/100 WBC (Bld) 1.8 % Normal 0.9-7.0 [facility] Comment on above: Performed By: #### C BC ####[facility] [address] [place] [address]Dr. Tadeo Smyth Erythrocyte distribution width (RBC) [Ratio] 13.8 % Normal 11.0-15.0 [facility] Comment on above: Performed By: #### C BC ####[facility] Omtsc[address] [place], [place] [address]Dr. Tadeo Smyth Hematocrit (Bld) [Volume fraction] 41.0 % Normal 36.0-48.0 [facility] Comment on above: Performed By: #### C BC ####[facility] [address] [place], [place] [address]Dr. Tadeo Smyth Hemoglobin (Bld) [Mass/Vol] 13.3 g/dL Normal 12.0-16.0 [facility] Comment on above: Performed By: #### C BC ####[facility] Vwegoemu[address] [place], [place] [address]Dr. Tadeo Smyth IG # 0.01 10e3/ul Normal 0.00-0.03 [facility] Comment on above: Performed By: #### C BC ####[facility] Bkxkxzdq[address] [place], [place] [address]Dr. Tadeo Smyth IG % 0.1 % Normal 0.0-0.5 [facility] Comment on above: Performed By: #### C BC ####[facility] [address]xes[address] [place], [place] [address]Dr. Tadeo Smyth LYMPH # 1.7 103/ul Normal 1.2-3.8 [facility] Comment on above: Performed By: #### C BC ####[facility] [address] [place], [place] [address]Dr. Tadeo Smyth Lymphocytes/100 WBC (Bld) 24.8 % Normal 20.5-60.0 [facility] Comment on above: Performed By: #### C BC ####[facility] Opfab[address]st[address] [place], [place] [address]Dr. Tadeo Smyth MANUAL DIFF REQ NO Normal [facility] Comment on above: Performed By: #### C BC ####[facility] [address] [place] [id number]. Tadeo Smyth MCH (RBC) [Entitic mass] 29.0 pg Normal 26.7-34.0 [facility] Comment on above: Performed By: #### C BC ####[facility] [address] [place] [id number]. Tadeo Smyth MCHC (RBC) [Mass/Vol] 32.4 g/dL Normal 29.9-35.2 [facility] Comment on above: Performed By: #### C BC ####[facility] [address] [place] [id number]. Tadeo Smyth MCV (RBC) [Entitic vol] 89.3 fL Normal 81.0-99.0 [facility] Comment on above: Performed By: #### C BC ####[facility] Youixvarza[address] [place], [place] [address]Dr. Tadeo Haja MONO # 0.5 103/ul Normal 0.3-0.8 [facility] Comment on above: Performed By: #### C BC ####[facility] [address] [place] [address]Dr. Tadeo Haja Monocytes/100 WBC (Bld) 6.9 % Normal 1.7-12.0 [facility] Comment on above: Performed By: #### C BC ####[facility] Azmurenx[address] [place], [place] [address]Dr. Tadeo Smyth NEUT # 4.5 103/ul Normal 1.4-6.5 [facility] Comment on above: Performed By: #### C BC ####[facility] [address] [place], [place] [id number]. Margotnicole Smyth Neutrophils/100 WBC (Bld) 66.0 % Normal 43.0-75.0 [facility] Comment on above: Performed By: #### C BC ####[facility] [address] [place], [place] [id number]. Tadeo Smyth Platelet mean volume (Bld) [Entitic vol] 8.8 fL Critically low 9.5-13.5 [facility] Comment on above: Performed By: #### C BC ####[facility] [address] [place] [id number]. Tadeo Smyth PLT 384 103/ul Normal 150-450 [facility] Comment on above: Performed By: #### C BC ####[facility] [address] [place] [address]Dr. Tadeo Smyth RBC 4.59 106/ul Normal 4.20-5.40 [facility] Comment on above: Performed By: #### C BC ####[facility] [address] [place] [id number]. Tadeo Smyth WBC 6.8 103/ul Normal 4.0-11.0 [facility] Comment on above: Performed By: #### C BC ####[facility] [address] [place], [place] [address]Dr. Margotnicole Smyth PROF CHEM 8 (BAS METB)on Anion gap [Moles/Vol] 13.8 mmol/L Normal [facility] Comment on above: Performed By: #### B MP ####[facility] [address]ox[address] [place], [place] [address]Dr. Tadeo Haja Calcium [Mass/Vol] 9.6 mg/dL Normal 8.5-10.1 [facility] Comment on above: Performed By: #### B MP ####[facility] Ed[address]zuz[address]wp[address] [place], [place] [address]Dr. Tadeo Haja Chloride [Moles/Vol] 106 mmol/L Normal 98-107 [facility] Comment on above: Performed By: #### B MP ####[facility] [address] [place] [address]Dr. Margotnicole Smyth CO2 [Moles/Vol] 25.9 mmol/L Normal 21.0-32.0 [facility] Comment on above: Performed By: #### B MP ####[facility] Ssxfce[address]eg[address] [place], [place] [address]Dr. Tadeo Haja Creatinine [Mass/Vol] 0.92 mg/dL Normal 0.55-1.02 [facility] Comment on above: Performed By: #### B MP ####[facility] [address] [place] [address]Dr. Tadeo Smyth EGFR-AF FIJIAN >60 Normal >=60 [facility] Comment on above: Performed By: #### B MP ####[facility] [address] [place] [address]Dr. Tadeo Smyth EGFR-NON AF FIJIAN >60 Normal >=60 [facility] Comment on above: Performed By: #### B MP ####[facility] [address] [place] [address]Dr. Margotnicole Smyth Glucose [Mass/Vol] 98 mg/dL Normal 74-106 [facility] Comment on above: Performed By: #### B MP ####[facility] Xryiigubrj[address] [place], [place] [address]Dr. Tadeo Smyth Potassium [Moles/Vol] 3.7 mmol/L Normal 3.5-5.1 [facility] Comment on above: Performed By: #### B MP ####[facility] Ffbdvienhh[address] [place], [place] [address]Dr. Margotnicole Smyth Sodium [Moles/Vol] 142 mmol/L Normal 136-145 [facility] Comment on above: Performed By: #### B MP ####[facility] J[address]lplqssv[address] [place], [place] [address]Dr. Margotnicole Smyht Urea nitrogen [Mass/Vol] 19.0 mg/dL Critically high 7.0-18.0 [facility] Comment on above: Performed By: #### B MP ####[facility] Kbkroqoljd[address] [place], [place] [address]Dr. Tadeo Smyth Urea nitrogen/Creatinine [Mass ratio] 20.7 mg/mg Normal [facility] Comment on above: Performed By: #### B MP ####[facility] Haanfreaxl[address] [place], [place] [address]Dr. Tadeo Smyth XR KUB 1 VIEWon 09-21-2022 XR KUB 1 VIEW Normal [facility] Lab Reportson 09-20-2022 Lab Reports [id number]#[id number]:127 Normal [facility] RAD - CT Reporton 09-20-2022 RAD - CT Report [id number]#[id number]:127 Normal [facility] RAD - MISCon 09-20-2022 RAD - MISC [id number]#[id number]:127 Normal [facility] AMYLASEon 09-18-2022 Amylase [Catalytic activity/Vol] 58 U/L Normal 25-115 [facility] Comment on above: Performed By: #### L IPA, CMP, VIJI ####[facility] Snsnfqtnhc[address] [place], [place] [address]Dr. Tadeo Smyth CBC AUTO DIFFon 09-18-2022 BASO # 0.0 103/ul Normal 0.0-0.1 [facility] Comment on above: Performed By: #### C BC ####[facility] Jhhrunsxwp[address] [place], [place] [address]Dr. Tadeo Smyth Basophils/100 WBC (Bld) 0.3 % Normal 0.2-2.0 [facility] Comment on above: Performed By: #### C BC ####[facility] U[address] [place], [place] [address]DrNeo Smyth EO # 0.1 103/ul Normal 0.0-0.7 [facility] Comment on above: Performed By: #### C BC ####[facility] Ufwvsogpqa[address] [place], [place] [address]Dr. Tadeo Smyth Eosinophils/100 WBC (Bld) 1.8 % Normal 0.9-7.0 [facility] Comment on above: Performed By: #### C BC ####[facility] [address]rwee[address] [place], [place] [address]Dr. Tadeo Smyth Erythrocyte distribution width (RBC) [Ratio] 13.7 % Normal 11.0-15.0 [facility] Comment on above: Performed By: #### C BC ####[facility] Y[address]aw[address] [place], [place] [address]Dr. Tadeo Smyth Hematocrit (Bld) [Volume fraction] 37.4 % Normal 36.0-48.0 [facility] Comment on above: Performed By: #### C BC ####[facility] [address] [place] [address]DrNeo Tadeo Smyth Hemoglobin (Bld) [Mass/Vol] 12.3 g/dL Normal 12.0-16.0 [facility] Comment on above: Performed By: #### C BC ####[facility] Slutpunmcc[address] [place], [place] [address]DrNeo Tadeo Smyth IG # 0.02 10e3/ul Normal 0.00-0.03 [facility] Comment on above: Performed By: #### C BC ####[facility] Wtxpyrgizb[address] [place], [place] [address]DrNeo Tadeo Smyth IG % 0.3 % Normal 0.0-0.5 [facility] Comment on above: Performed By: #### C BC ####[facility] G[address]qszpwue[address] [place], [place] [address]DrNeo Tadeo Smyth LYMPH # 2.2 103/ul Normal 1.2-3.8 [facility] Comment on above: Performed By: #### C BC ####[facility] Jqzx[address]xi[address] [place], [place] [address]DrNeo Tadeo Smyth Lymphocytes/100 WBC (Bld) 29.3 % Normal 20.5-60.0 [facility] Comment on above: Performed By: #### C BC ####[facility] R[address]aejgj[address] [place], [place] [address]DrNeo Tadeo Smyth MANUAL DIFF REQ NO Normal [facility] Comment on above: Performed By: #### C BC ####[facility] Watxkjgmah[address] [place], [place] [address]DrNeo Tadeo Smyth MCH (RBC) [Entitic mass] 29.0 pg Normal 26.7-34.0 [facility] Comment on above: Performed By: #### C BC ####[facility] Zaxjhvnklo[address] [place], [place] [address]DrNeo Tadeo Haja MCHC (RBC) [Mass/Vol] 32.9 g/dL Normal 29.9-35.2 [facility] Comment on above: Performed By: #### C BC ####[facility] [address] [place] [address]DrNeo Smyth MCV (RBC) [Entitic vol] 88.2 fL Normal 81.0-99.0 [facility] Comment on above: Performed By: #### C BC ####[facility] Ugjoaowkzk[address] [place], [place] [address]DrNeo Smyth MONO # 0.5 103/ul Normal 0.3-0.8 [facility] Comment on above: Performed By: #### C BC ####[facility] Ftedprcnay[address] [place], [place] [address]DrNeo Smyth Monocytes/100 WBC (Bld) 6.4 % Normal 1.7-12.0 [facility] Comment on above: Performed By: #### C BC ####[facility] Cfwrbyheax[address] [place], [place] [address]DrNeo Smyth NEUT # 4.7 103/ul Normal 1.4-6.5 [facility] Comment on above: Performed By: #### C BC ####[facility] Byzrqkitik[address] [place], [place] [address]DrNeo Smyth Neutrophils/100 WBC (Bld) 61.9 % Normal 43.0-75.0 [facility] Comment on above: Performed By: #### C BC ####[facility] U[address]eq[address] [place], [place] [address]DrNeo Smyth Platelet mean volume (Bld) [Entitic vol] 9.0 fL Critically low 9.5-13.5 [facility] Comment on above: Performed By: #### C BC ####[facility] Visexwzcyd[address] [place], [place] [address]DrNeo Smyth PLT 395 103/ul Normal 150-450 [facility] Comment on above: Performed By: #### C BC ####[facility] Xwfkchiukp[address] [place], [place] [address]DrNeo Smyth RBC 4.24 106/ul Normal 4.20-5.40 [facility] Comment on above: Performed By: #### C BC ####[facility] Yqronjxzko[address] [place], [place] [address]Dr. Tadeo Smyth WBC 7.6 103/ul Normal 4.0-11.0 [facility] Comment on above: Performed By: #### C BC ####[facility] Cycxswvqnw[address] [place], [place] [address]Dr. Tadeo Smyth CT ABD/PELV W CONon 09-18-[address] ABD/PELV W CON Normal [facility] ER URINE PROFILEon 3 Bilirubin Ql (U) SMALL Abnormal NEGATIVE [facility] Comment on above: Performed By: #### KAROL MERCHANT ####[facility] Cousajpgxy[address] [place], [place] [address]Dr. Tadeo Smyth Clarity (U) CLEAR Normal CLEAR [facility] Comment on above: Performed By: #### KAROL MERCHANT ####[facility] Smgfaawaxr[address] [place], [place] [address]Dr. Tadeo Smyth Color (U) DK. YELLOW Normal YELLOW [facility] Comment on above: Performed By: #### KAROL MERCHANT ####[facility] Ekxqsqnenu[address] [place], [place] [address]Dr. Tadeo CAMARGOD A micrscopic examina tion will be performed if indicated. Normal [facility] Comment on above: Performed By: #### KAROL MERCHANT ####[facility] Mb[address]fhicrs[address] [place], [place] [address]Dr. Tadeo Smyth Glucose Ql (U) Negative Normal NEGATIVE [facility] Comment on above: Performed By: #### KAROL MERCHANT ####[facility] Jksomgmapz[address] [place], [place] [address]Dr. Tadeo Smyth Hemoglobin Ql (U) SMALL Abnormal NEGATIVE [facility] Comment on above: Performed By: #### KAROL MERCHANT ####[facility] Dzuqxixrmd[address] [place], [place] [address]Dr. Tadeo Smyth Ketones Ql (U) Negative Normal NEGATIVE [facility] Comment on above: Performed By: #### SANDRO MERCHANTRO ####[facility] Trwxanmjfb[address] [place], [place] [address]Dr. Tadeo Smyth LEUKOCYTES Negative Normal NEGATIVE [facility] Comment on above: Performed By: #### Matthew FRANCISCO UMICRO ####[facility] [address] [place] [address]Dr. Tadeo Smyth Nitrite Ql (U) Negative Normal NEGATIVE [facility] Comment on above: Performed By: #### Matthew FRANCISCO UMICRO ####[facility] [address]hodpf[address] [place], [place] [address]Dr. Tadeo Smyth pH (U) 5.5 [pH] Normal 5-9 [facility] Comment on above: Performed By: #### RANDI MERCHANTICRO ####[facility] Ztlretxvwy[address] [place], [place] [address]Dr. Tadeo Smyth SPEC GRAVITY >=1.030 Abnormal 1.005-<=1.0 25 [facility] Comment on above: Performed By: #### RANDI MERCHANTICRO ####[facility] Ajcpovpaew[address] [place], [place] [address]Dr. Tadeo Smyth UA PROTEIN TRACE Normal NEGATIVE/ TRACE [facility] Comment on above: Performed By: #### Matthew FRANCISCO UMICRO ####[facility] Izqysslois[address] [place], [place] [address]Dr. Tadeo Smyth UR MICRO IND INDICATED Normal [facility] Comment on above: Performed By: #### RANDI MERCHANTICRO ####[facility] Eugwlacvsl[address] [place], [place] [address]Dr. Tadeo Smyth Urobilinogen Qn (U) 0.2 {Benito'U}/dL Normal 0.2 - 1. 0 [facility] Comment on above: Performed By: #### RANDI MERCHANTICRO ####[facility] Fawkzlnghw[address] [place], [place] [address]Dr. Tadeo Smyth LACTATE/LACTIC ACIDon 2022 Lactate [Moles/Vol] 1.1 mmol/L Normal 0.4-1.9 [facility] Comment on above: Performed By: #### L ACT ####[facility] [address] [place] [address]Dr. Tadeo Smyth LIPASEon 09-18-2022 Lipase [Catalytic activity/Vol] 75.0 U/L Normal 73.0-393.0 [facility] Comment on above: Performed By: #### L IPA, CMP, VIJI ####[facility] Yrtlbkkbko[address] [place], [place] [address]Dr. Tadeo Smyth PROF 14(COMP METB)on 023 Albumin [Mass/Vol] 3.4 g/dL Normal 3.4-5.0 [facility] Comment on above: Performed By: #### L IPA, CMP, VIJI ####[facility] Syefgrmrnc[address] [place], [place] [address]Dr. Tadeo Smyth Albumin/Globulin [Mass ratio] 0.9 {ratio} Normal [facility] Comment on above: Performed By: #### L IPA, CMP, VIJI ####[facility] Nixwysvcxg[address] [place], [place] [address]Dr. Tadeo Smyth ALP [Catalytic activity/Vol] 164 U/L Critically high 46-116 [facility] Comment on above: Performed By: #### L IPA, CMP, VIJI ####[facility] Rjzjlukfir[address] [place], [place] [address]Dr. Tadeo Smyth ALT [Catalytic activity/Vol] 29 U/L Normal 14-59 [facility] Comment on above: Performed By: #### L IPA, CMP, VIJI ####[facility] Mgoddmcxwk[address] [place] [address]Dr. Tadeo Smyth Anion gap [Moles/Vol] 12.3 mmol/L Normal [facility] Comment on above: Performed By: #### L IPA, CMP, VIJI ####[facility] Qzvckoiyri019[address] [place], [place] [address]Dr. Tadeo Smyth AST [Catalytic activity/Vol] 30 U/L Normal 15-37 [facility] Comment on above: Performed By: #### L IPA, CMP, VIJI ####[facility] Xazoowsrka[address] [place], [place] [address]Dr. Tadeo Smyth Bilirubin [Mass/Vol] 0.3 mg/dL Normal 0.2-1.0 [facility] Comment on above: Performed By: #### L IPA, CMP, VIJI ####[facility] Txumywdapo[address] [place], [place] [address]Dr. Tadeo Smyth Calcium [Mass/Vol] 8.9 mg/dL Normal 8.5-10.1 [facility] Comment on above: Performed By: #### L IPA, CMP, VIJI ####[facility] Upnkyplfgj984[address] [place], [place] [address]Dr. Tdaeo Smyth Chloride [Moles/Vol] 103 mmol/L Normal 98-107 [facility] Comment on above: Performed By: #### L IPA, CMP, VIJI ####[facility] Lscintckiz[address] [place], [place] [address]Dr. Tadeo Smyth CO2 [Moles/Vol] 27.8 mmol/L Normal 21.0-32.0 [facility] Comment on above: Performed By: #### L IPA, CMP, VIJI ####[facility] Gmpixndthw26[address] [place], [place] [address]Dr. Tadeo Smyth Creatinine [Mass/Vol] 0.89 mg/dL Normal 0.55-1.02 [facility] Comment on above: Performed By: #### L IPA, CMP, VIJI ####[facility] Vxperevqfb16[address] [place], [place] [address]Dr. Tadeo Smyth EGFR-AF FIJIAN >60 Normal >=60 [facility] Comment on above: Performed By: #### L IPA, CMP, VIJI ####[facility] Iqmxozdbeg3636[address] [place], [place] [address]Dr. Tadeo Smyth EGFR-NON AF FIJIAN >60 Normal >=60 [facility] Comment on above: Performed By: #### L IPA, CMP, VIJI ####[facility] Halmsfygub[address] [place], [place] [address]Dr. Tadeo Smyth Globulin (S) [Mass/Vol] 3.9 g/dL Normal [facility] Comment on above: Performed By: #### L IPA CMP, VIJI ####[facility] Wpzsmmumro[address] [place] [address]Dr. Tadeo Smyth Glucose [Mass/Vol] 96 mg/dL Normal 74-106 [facility] Comment on above: Performed By: #### L IPA CMP, VIJI ####[facility] Gzzwqmsrap4[address] [place] [address]Dr. Tadeo Smyth Potassium [Moles/Vol] 4.1 mmol/L Normal 3.5-5.1 [facility] Comment on above: Performed By: #### L IPA CMP, VIJI ####[facility] Sbkuwitbgz[address] [place], [place] [address]Dr. Tadeo Smyth Protein [Mass/Vol] 7.3 g/dL Normal 6.4-8.2 [facility] Comment on above: Performed By: #### L IPA CMP, VIJI ####[facility] Sbdymsbsty8[address] [place], [place] [address]Dr. Tadeo Smyth Sodium [Moles/Vol] 139 mmol/L Normal 136-145 [facility] Comment on above: Performed By: #### L IPA CMP, VIJI ####[facility] Ngpjktozjr[address] [place], [place] [address]Dr. Tadeo Smyth Urea nitrogen [Mass/Vol] 19.0 mg/dL Critically high 7.0-18.0 [facility] Comment on above: Performed By: #### L IPA CMP, VIJI ####[facility] Xctiuseqtr[address] [place], [place] [address]Dr. Tadeo Smyth Urea nitrogen/Creatinine [Mass ratio] 21.3 mg/mg Normal [facility] Comment on above: Performed By: #### L IPA CMP, VIJI ####[facility] Xrhilhzhgu32[address] [place] [address]Dr. Tadeo Smyth URINE MICROSCOPIC ONLYon BACTERIA TRACE Abnormal NONE SEEN [facility] Comment on above: Performed By: #### KAROL MERCHANT ####[facility] Zuanosywjd165[address] [place], [place] [address]Dr. Tadeo Smyth Bacteria identified Cx Nom (U) NOT INDICATED Normal [facility] Comment on above: Performed By: #### KAROL MERCHANT ####[facility] Smqmmixrkk9040[address] [place], [place] [address]Dr. Tadeo Smyth CAST NONE SEEN Normal NONE SEEN [facility] Comment on above: Performed By: #### SANDRO MERCHANTRO ####[facility] Unwsovzjxo457[address] [place], [place] [address]Dr. Tadeo Smyth Crystals LM Nom (Urine sed) SEEN Abnormal NONE SEEN [facility] Comment on above: Performed By: #### SANDRO MERCHANTRO ####[facility] Llzcqzartq1237[address] [place], [place] [address]Dr. Tadeo Smyth Epithelial cells LM Ql (Urine sed) RARE Normal NONE SEEN /RARE [facility] Comment on above: Performed By: #### SANDRO MERCHANTRO ####[facility] Wkqknazqqx[address] [place], [place] [address]Dr. Tadeo Smyth MUCOUS TRACE Abnormal NONE SEEN [facility] Comment on above: Performed By: #### SANDRO MERCHANTRO ####[facility] Odqcxnomad9[address] [place], [place] [address]Dr. Tadeo Smyth RBC 0-2 Normal 0-2 [facility] Comment on above: Performed By: #### SANDRO MERCHANTRO ####[facility] Otipyafxgc739[address] [place], [place] [address]Dr. Tadeo Smyth WBC 0-2 Abnormal NONE SEEN [facility] Comment on above: Performed By: #### SANDRO MERCHANTRO ####[facility] Tbxefuobex[address] [place], [place] [address]Dr. Tadeo Smyth CBC AUTO DIFFon 09-14-2022 BASO # 0.0 103/ul Normal 0.0-0.1 [facility] Comment on above: Performed By: #### C BC ####[facility] Pyohwmcuhx[address] [place], [place] [address]Dr. Tadeo Smyth Basophils/100 WBC (Bld) 0.3 % Normal 0.2-2.0 [facility] Comment on above: Performed By: #### C BC ####[facility] Xswujqbmvr[address] [place], [place] [address]Dr. Tadeo Smyth EO # 0.2 103/ul Normal 0.0-0.7 [facility] Comment on above: Performed By: #### C BC ####[facility] Irnsiteevp[address] [place], [place] [address]Dr. Tadeo Smyth Eosinophils/100 WBC (Bld) 1.1 % Normal 0.9-7.0 [facility] Comment on above: Performed By: #### C BC ####[facility] Nzfnfbakee35[address] [place], [place] [address]Dr. Tadeo Smyth Erythrocyte distribution width (RBC) [Ratio] 13.7 % Normal 11.0-15.0 [facility] Comment on above: Performed By: #### C BC ####[facility] Oofwwqlmus[address] [place], [place] [address]Dr. Tadeo Smyth Hematocrit (Bld) [Volume fraction] 41.3 % Normal 36.0-48.0 [facility] Comment on above: Performed By: #### C BC ####[facility] Nmnzsjhoob[address] [place], [place] [address]Dr. Tadeo Smyth Hemoglobin (Bld) [Mass/Vol] 13.6 g/dL Normal 12.0-16.0 [facility] Comment on above: Performed By: #### C BC ####[facility] Hzbtsuffza2085[address] [place], [place] [address]Dr. Tadeo Smyth IG # 0.05 10e3/ul Critically high 0.00-0.03 [facility] Comment on above: Performed By: #### C BC ####[facility] Fffjtdufcn[address] [place], [place] [address]Dr. Tadeo Smyth IG % 0.4 % Normal 0.0-0.5 [facility] Comment on above: Performed By: #### C BC ####[facility] Kvweddsvlr295[address] [place], [place] [address]Dr. Tadeo Smyth LYMPH # 2.2 103/ul Normal 1.2-3.8 [facility] Comment on above: Performed By: #### C BC ####[facility] Lmtsgcaugg[address] [place] [address]DrNeo Smyth Lymphocytes/100 WBC (Bld) 16.3 % Critically low 20.5-60.0 [facility] Comment on above: Performed By: #### C BC ####[facility] Fvxrtaxjqf37[address] [place] [address]DrNeo Smyth MANUAL DIFF REQ NO Normal [facility] Comment on above: Performed By: #### C BC ####[facility] Vdudrmpfzi30[address] [place] [address]DrNeo Smyth MCH (RBC) [Entitic mass] 28.9 pg Normal 26.7-34.0 [facility] Comment on above: Performed By: #### C BC ####[facility] Eoktxftukw[address] [place], [place] [address]DrNeo Smyth MCHC (RBC) [Mass/Vol] 32.9 g/dL Normal 29.9-35.2 [facility] Comment on above: Performed By: #### C BC ####[facility] Cdcuphofxx6435[address] [place], [place] [address]DrNeo Smyth MCV (RBC) [Entitic vol] 87.9 fL Normal 81.0-99.0 [facility] Comment on above: Performed By: #### C BC ####[facility] Vwjcgpnrrp[address] [place], [place] [address]DrNeo Smyth MONO # 0.7 103/ul Normal 0.3-0.8 [facility] Comment on above: Performed By: #### C BC ####[facility] Mdckvetuao[address] [place], [place] [address]DrNeo Smyth Monocytes/100 WBC (Bld) 5.1 % Normal 1.7-12.0 [facility] Comment on above: Performed By: #### C BC ####[facility] Mkmnwqpnke8230[address] [place], [place] [address]DrNeo Smyth NEUT # 10.3 103/ul Critically high 1.4-6.5 [facility] Comment on above: Performed By: #### C BC ####[facility] Pcokcbncjb9[address] [place] [address]Dr. Tadeo Smyth Neutrophils/100 WBC (Bld) 76.8 % Critically high 43.0-75.0 [facility] Comment on above: Performed By: #### C BC ####[facility] Febdaqvdmq026[address] [place], [place] [address]Dr. Margotnicole Smyth Platelet mean volume (Bld) [Entitic vol] 8.8 fL Critically low 9.5-13.5 [facility] Comment on above: Performed By: #### C BC ####[facility] Asyfmwywom[address] [place], [place] [address]Dr. Tadeo Smyth PLT 438 103/ul Normal 150-450 [facility] Comment on above: Performed By: #### C BC ####[facility] Bopzbzmnuu6[address] [place], [place] [address]Dr. Tadeo Smyth RBC 4.70 106/ul Normal 4.20-5.40 [facility] Comment on above: Performed By: #### C BC ####[facility] Opypwhtwca166[address] [place], [place] [address]Dr. Tadeo Smyth WBC 13.4 103/ul Critically high 4.0-11.0 [facility] Comment on above: Performed By: #### C BC ####[facility] Crtjkwwipc[address] [place], [place] [address]Dr. Tadeo Smyth ER URINE PROFILEon 3 Bilirubin Ql (U) Negative Normal NEGATIVE [facility] Comment on above: Performed By: #### SANDRO MERCHANTRO ####[facility] Szvqjwtult224[address] [place], [place] [address]Dr. Tadeo Smyth Clarity (U) CLEAR Normal CLEAR [facility] Comment on above: Performed By: #### SANDRO MERCHANTRO ####[facility] Rmauvqaqlt30[address] [place] [address]Dr. Tadeo Smyth Color (U) LT. YELLOW Normal YELLOW [facility] Comment on above: Performed By: #### KAROL MERCHANT ####[facility] Ukydzkmblo[address] [place], [place] [address]Dr. Tadeo ENG A micrscopic examina tion will be performed if indicated. Normal [facility] Comment on above: Performed By: #### SANDRO MERCHANTRO ####[facility] Xaojydwiab[address] [place], [place] [address]Dr. Tadeo Smyth Glucose Ql (U) Negative Normal NEGATIVE [facility] Comment on above: Performed By: #### SANDRO MERCHANTRO ####[facility] Zunkzthugz[address] [place], [place] [address]Dr. Tadeo Smyth Hemoglobin Ql (U) TRACE-INTACT Abnormal NEGATIVE [facility] Comment on above: Performed By: #### KAROL MERCHANT ####[facility] Urubwohkkr932[address] [place], [place] [address]Dr. Tadeo Smyth Ketones Ql (U) Negative Normal NEGATIVE [facility] Comment on above: Performed By: #### SANDRO MERCHANTRO ####[facility] Dvqdsigggn8[address] [place], [place] [address]Dr. Tadeo Smyth LEUKOCYTES Negative Normal NEGATIVE [facility] Comment on above: Performed By: #### KAROL MERCHANT ####[facility] Gdosrqxccu[address] [place], [place] [address]Dr. Tadeo Smyth Nitrite Ql (U) Negative Normal NEGATIVE [facility] Comment on above: Performed By: #### KAROL MERCHANT ####[facility] Qtkrcvmzwp3415[address] [place], [place] [address]Dr. Tadeo Smyth pH (U) 6.5 [pH] Normal 5-9 [facility] Comment on above: Performed By: #### KAROL MERCHANT ####[facility] Tkgdkimgdq8055[address] [place], [place] [address]Dr. Tadeo Smyth SPEC GRAVITY 1.020 Normal 1.005-<=1.0 25 [facility] Comment on above: Performed By: #### KAROL MERCHANT ####[facility] Vpbfdfqhqu[address] [place] [address]Dr. Tadeo Smyth UA PROTEIN Negative Normal NEGATIVE/ TRACE [facility] Comment on above: Performed By: #### KAROL MERCHANT ####[facility] Pxxtjkacvt18[address] [place] [address]Dr. Tadeo Smyth UR MICRO IND INDICATED Normal [facility] Comment on above: Performed By: #### KAROL MERCHANT ####[facility] Hsfcwchmfq28[address] [place] [address]Dr. Tadeo Smyth Urobilinogen Qn (U) 0.2 {Benito'U}/dL Normal 0.2 - 1. 0 [facility] Comment on above: Performed By: #### KAROL MERCHANT ####[facility] Koktfykprp[address] [place], [place] [address]Dr. Tadeo Smyth LIPASEon 09-14-2022 Lipase [Catalytic activity/Vol] 117.0 U/L Normal 73.0-393.0 [facility] Comment on above: Performed By: #### H STROPN, CMP, LIPA ####[facility] Uyqfzwpjiv[address] [place], [place] [address]Dr. Tadeo Smyth PROF 14(COMP METB)on 023 Albumin [Mass/Vol] 3.5 g/dL Normal 3.4-5.0 [facility] Comment on above: Performed By: #### H STROPN, CMP, LIPA ####[facility] [address]zrsiynzkj[address] [place] [address]Dr. Tadeo Smyth Albumin/Globulin [Mass ratio] 0.8 {ratio} Normal [facility] Comment on above: Performed By: #### H STROPN, CMP, LIPA ####[facility] Cvbrrxvslx3[address] [place] [address]Dr. Tadeo Smyht ALP [Catalytic activity/Vol] 180 U/L Critically high 46-116 [facility] Comment on above: Performed By: #### H STROPN, CMP, LIPA ####[facility] Xfunpwbtkp79[address] [place] [address]Dr. Tadeo Smyth ALT [Catalytic activity/Vol] 25 U/L Normal 14-59 [facility] Comment on above: Performed By: #### H STROPN, CMP, LIPA ####[facility] Qccduanfho4[address] [place] [address]Dr. Tadeo Smyth Anion gap [Moles/Vol] 14.4 mmol/L Normal [facility] Comment on above: Performed By: #### H STROPN, CMP, LIPA ####[facility] Apnvsatgap14[address] [place] [address]Dr. Tadeo Smyth AST [Catalytic activity/Vol] 14 U/L Critically low 15-37 [facility] Comment on above: Performed By: #### H STROPN, CMP, LIPA ####[facility] Gvwntrysax64[address] [place] [address]Dr. Tadeo Smyth Bilirubin [Mass/Vol] 0.2 mg/dL Normal 0.2-1.0 [facility] Comment on above: Performed By: #### H STROPN, CMP, LIPA ####[facility] Kviwsykmtw[address] [place], [place] [address]Dr. Tadeo Smyth Calcium [Mass/Vol] 9.4 mg/dL Normal 8.5-10.1 [facility] Comment on above: Performed By: #### H STROPN, CMP, LIPA ####[facility] Hisyaitaux[address] [place] [address]Dr. Tadeo Smyth Chloride [Moles/Vol] 107 mmol/L Normal 98-107 [facility] Comment on above: Performed By: #### H STROPN, CMP, LIPA ####[facility] Ktwbgphybo[address] [place], [place] [address]Dr. Tadeo Smyth CO2 [Moles/Vol] 23.9 mmol/L Normal 21.0-32.0 [facility] Comment on above: Performed By: #### H STROPN, CMP, LIPA ####[facility] Yx[address]ap[address]wji64[address] [place] [address]Dr. Tadeo Smyth Creatinine [Mass/Vol] 0.91 mg/dL Normal 0.55-1.02 [facility] Comment on above: Performed By: #### H STROPN, CMP, LIPA ####[facility] [address]fidvdls[address] [place] [address]Dr. Tadeo Smyth EGFR-AF FIJIAN >60 Normal >=60 [facility] Comment on above: Performed By: #### H STROPN, CMP, LIPA ####[facility] F[address]jpsttixe[address] [place] [address]Dr. Tadeo Smyth EGFR-NON AF FIJIAN >60 Normal >=60 [facility] Comment on above: Performed By: #### H STROPN, CMP, LIPA ####[facility] Wciwxdybwu97[address] [place] [address]Dr. Tadeo Smyth Globulin (S) [Mass/Vol] 4.2 g/dL Normal [facility] Comment on above: Performed By: #### H STROPN, CMP, LIPA ####[facility] Unbpckoqxp0[address] [place] [address]Dr. Tadeo Smyth Glucose [Mass/Vol] 101 mg/dL Normal 74-106 [facility] Comment on above: Performed By: #### H STROPN, CMP, LIPA ####[facility] J[address]qzeyorb[address] [place] [address]Dr. Tadeo Smyth Potassium [Moles/Vol] 3.3 mmol/L Critically low 3.5-5.1 [facility] Comment on above: Performed By: #### H STROPN, CMP, LIPA ####[facility] Q[address]josuglhv26[address] [place] [address]Dr. Tadeo Smyth Protein [Mass/Vol] 7.7 g/dL Normal 6.4-8.2 [facility] Comment on above: Performed By: #### H STROPN, CMP, LIPA ####[facility] Zsi[address]zwvq40[address] [place] [address]Dr. Tadeo Smyth Sodium [Moles/Vol] 142 mmol/L Normal 136-145 [facility] Comment on above: Performed By: #### H STROPN, CMP, LIPA ####[facility] [address]vcsbzuyh[address] [place] [address]Dr. Tadeo Smyth Urea nitrogen [Mass/Vol] 17.0 mg/dL Normal 7.0-18.0 [facility] Comment on above: Performed By: #### H DIANN FIGUEROA, LIPA ####[facility] [address]oybri[address] [place] [address]Dr. Tadeo Smyth Urea nitrogen/Creatinine [Mass ratio] 18.7 mg/mg Normal [facility] Comment on above: Performed By: #### Juan Luis FIGUEROA CMP, LIPA ####[facility] Rq[address]loihfd[address] [place] [address]Dr. Tadeo Smyth TROPONIN, HIGH SENSITIVITYon 09-14-2022 HSTROP 46.6 pg/mL Normal 4.0-51.3 [facility] Comment on above: Result Comment: CUT- OFF POINTS HAVE BEEN ESTABLISHED BASED ON THE FOURTH UNIVERSAL DEFINITIONS OF MYOCARDIALINFARCTION. THE UPPER REFERENCE LIMIT (URL) OF TROPONIN, DEFINED THE 99TH PERCENTILE OFcTnI DISTRIBUTION IN A REFERENCE POPULATION, HAS BEEN CONFIRMED THE DECISION THRESHOLDFOR CT DIAGNOSIS. Performed By: #### Juan Lusi FIGUEROA CMP LIPA ####[facility] [address]uvzfk[address] [place] [address]Dr. Tadeo Haja URINE MICROSCOPIC ONLYon BACTERIA NONE SEEN Normal NONE SEEN [facility] Comment on above: Performed By: #### SANDRO MERCHANTRO ####[facility] [address]qswdzfpnn[address] [place] [address]Dr. Tadeo Smyth Bacteria identified Cx Nom (U) NOT INDICATED Normal [facility] Comment on above: Performed By: #### SANDRO MERCHANTRO ####[facility] Qhwcmpczix[address] [place] [address]Dr. Tadeo Smyth CAST NONE SEEN Normal NONE SEEN [facility] Comment on above: Performed By: #### SANDRO MERCHATNRO ####[facility] [address]uqymfnlk[address] [place] [address]Dr. Tadeo Smyth Crystals LM Nom (Urine sed) NONE SEEN Normal NONE SEEN [facility] Comment on above: Performed By: #### SANDRO MERCHANTRO ####[facility] [address]kytoppqaj[address] [place] [id number]. Tadeo Smyth Epithelial cells LM Ql (Urine sed) FEW Abnormal NONE SEEN /RARE [facility] Comment on above: Performed By: #### KAROL MERCHANT ####[facility] [address]bfjjhinda[address] [place] [phone]. Tadeo Smyth MUCOUS MODERATE Abnormal NONE SEEN [facility] Comment on above: Performed By: #### SANDRO MERCHANTRO ####[facility] Jwt[address]cejviu75[address] [place] [phone]. Tadeo Smyth RBC 0-2 Normal 0-2 [facility] Comment on above: Performed By: #### KAROL MERCHANT ####[facility] Dmrxiskoeq[address] [place] [address]Dr. Tadeo Smyth WBC NONE SEEN Normal NONE SEEN [facility] Comment on above: Performed By: #### KAROL MERCHANT ####[facility] Ynhmpxckhw4[address] [place] [address]Dr. Tadeo Smyth XR ABD FLAT UP_PA Kasey 09-14 XR ABD FLAT UP_PA CH Normal [facility] VC COMP CONSULTATIONon 09-06 VC COMP CONSULTATION Normal [facility] VC VENOUS REFLUX MACARIO LMTon 0 09-06-2022 VC VENOUS REFLUX MACARIO LMT Normal [facility] XR KUB 1 VIEWon 08-18-2022 XR KUB 1 VIEW Normal [facility] US RUBENS DOP LEG RTon 08-11-20 US RUBENS DOP LEG RT Normal [facility] Provider Letteron 08-10-2022 Provider Letter (Inserted Image. Kristin ble to display) August 10, 2022 [place] CARDOSO [address] [place] [address] CONSTANTINO CARDOSO 1970 Dear Constantino, We have been trying to reach you with no success. It is important that you return our call regarding your referral. Thank you for your prompt attention to this matter. Sincerely, [facility] Normal [facility] AMYLASEon 08-08-2022 Amylase [Catalytic activity/Vol] 64 U/L Normal 25-115 [facility] Comment on above: Performed By: #### C MP, VIJI, LIPA, CMADM ####[facility] [address]rdgbkto[address] [place] [address]Dr. Tadeo Smyth CARDIAC NORA ADMITon 022 CK [Catalytic activity/Vol] 127 U/L Normal 26-192 [facility] Comment on above: Performed By: #### C MP, VIJI, LIPA, CMADM ####[facility] [address]jfsunehp[address] [place] [address]Dr. Tadeo Smyth CK.MB [Mass/Vol] 1.71 ng/mL Normal <=3.60 [facility] Comment on above: Performed By: #### C MP, VIJI, LIPA, CMADM ####[facility] [facility] [address] [address]Dr. Tadeo Smyth HSTROP 36.7 pg/mL Normal 4.0-51.3 [facility] Comment on above: Result Comment: CUT- OFF POINTS HAVE BEEN ESTABLISHED BASED ON THE FOURTH UNIVERSAL DEFINITIONS OF MYOCARDIALINFARCTION. THE UPPER REFERENCE LIMIT (URL) OF TROPONIN, DEFINED THE 99TH PERCENTILE OFcTnI DISTRIBUTION IN A REFERENCE POPULATION, HAS BEEN CONFIRMED THE DECISION THRESHOLDFOR CT DIAGNOSIS. Performed By: #### C MP, VIJI, LIPA, CMADM ####[facility] Kt[address] [place], [place] [address]Dr. Tadeo Smyth AAKASH 23 ng/mL Normal 9-82 [facility] Comment on above: Performed By: #### C MP, VIJI, LIPA, CMADM ####[facility] [address] [address]Dr. Tadeo Smyth CBC AUTO DIFFon 08-08-2022 BASO # 0.0 103/ul Normal 0.0-0.1 [facility] Comment on above: Performed By: #### C BC ####[facility] [address] [address]Dr. Tadeo Haja Basophils/100 WBC (Bld) 0.4 % Normal 0.2-2.0 [facility] Comment on above: Performed By: #### C BC ####[facility] [address] [place], [place] [id number]. Tadeo Smyth EO # 0.1 103/ul Normal 0.0-0.7 [facility] Comment on above: Performed By: #### C BC ####[facility] [address] [address]Dr. Tadeo Smyth Eosinophils/100 WBC (Bld) 1.5 % Normal 0.9-7.0 [facility] Comment on above: Performed By: #### C BC ####[facility] Isuoyhjvie[address] [place], [place] [address]Dr. Tadeo Smyth Erythrocyte distribution width (RBC) [Ratio] 13.5 % Normal 11.0-15.0 [facility] Comment on above: Performed By: #### C BC ####[facility] Fwhndjamfh[address] [place], [place] [address]Dr. Tadeo Smyth Hematocrit (Bld) [Volume fraction] 37.0 % Normal 36.0-48.0 [facility] Comment on above: Performed By: #### C BC ####[facility] Fqqnxnuzed[address] [place], [place] [address]Dr. Tadeo Smyth Hemoglobin (Bld) [Mass/Vol] 12.0 g/dL Normal 12.0-16.0 [facility] Comment on above: Performed By: #### C BC ####[facility] Qqqirhwks[address] [place], [place] [address]Dr. Tadeo Smyth IG # 0.02 10e3/ul Normal 0.00-0.03 [facility] Comment on above: Performed By: #### C BC ####[facility] Jstxdzhcwk[address] [place], [place] [address]Dr. Tadeo Smyth IG % 0.3 % Normal 0.0-0.5 [facility] Comment on above: Performed By: #### C BC ####[facility] [address] [place], [place] [address]Dr. Tadeo Smyth LYMPH # 2.0 103/ul Normal 1.2-3.8 [facility] Comment on above: Performed By: #### C BC ####[facility] [address] [address]Dr. Tadeo Smyth Lymphocytes/100 WBC (Bld) 27.9 % Normal 20.5-60.0 [facility] Comment on above: Performed By: #### C BC ####[facility] [address] [address]Dr. Tadeo Smyth MANUAL DIFF REQ NO Normal [facility] Comment on above: Performed By: #### C BC ####[facility] Krnqntxsik[address] [address]Dr. Tadeo Smyth MCH (RBC) [Entitic mass] 28.9 pg Normal 26.7-34.0 [facility] Comment on above: Performed By: #### C BC ####[facility] Bqbemxujoi[address] [place], [place] [address]Dr. Tadeo Smyth MCHC (RBC) [Mass/Vol] 32.4 g/dL Normal 29.9-35.2 [facility] Comment on above: Performed By: #### C BC ####[facility] Elydgcqslf[address] [place], [place] [address]Dr. Tadeo Smyth MCV (RBC) [Entitic vol] 89.2 fL Normal 81.0-99.0 [facility] Comment on above: Performed By: #### C BC ####[facility] Zviizxvwzg[address] [place], [place] [address]Dr. Tadeo Smyth MONO # 0.5 103/ul Normal 0.3-0.8 [facility] Comment on above: Performed By: #### C BC ####[facility] Hwhlxagqoq[address] [place], [place] [address]Dr. Tadeo Smyth Monocytes/100 WBC (Bld) 6.7 % Normal 1.7-12.0 [facility] Comment on above: Performed By: #### C BC ####[facility] Fxgouxhois[address] [place], [place] [address]Dr. Tadeo Smyth NEUT # 4.5 103/ul Normal 1.4-6.5 [facility] Comment on above: Performed By: #### C BC ####[facility] Phiosljcdr[address] [place], [place] [address]Dr. Tadeo Smyth Neutrophils/100 WBC (Bld) 63.2 % Normal 43.0-75.0 [facility] Comment on above: Performed By: #### C BC ####[facility] R[address] [address]Dr. Tadeo Smyth Platelet mean volume (Bld) [Entitic vol] 9.0 fL Critically low 9.5-13.5 [facility] Comment on above: Performed By: #### C BC ####[facility] [address] [address]Dr. Tadeo Smyth PLT 382 103/ul Normal 150-450 [facility] Comment on above: Performed By: #### C BC ####[facility] Rhbzkngrrr[address] [place], [place] [address]Dr. Tadeo Smyth RBC 4.15 106/ul Critically low 4.20-5.40 [facility] Comment on above: Performed By: #### C BC ####[facility] Hnqbgvqrrc[address] [place], [place] [address]Dr. Tadeo Smyth WBC 7.1 103/ul Normal 4.0-11.0 [facility] Comment on above: Performed By: #### C BC ####[facility] Wxncmufwvd[address] [place], [place] [address]Dr. Tadeo Smyth CT ABD/PELV W CONon 08-08-[address] ABD/PELV W CON Normal [facility] ER URINE PROFILEon 2 Bilirubin Ql (U) Negative Normal NEGATIVE [facility] Comment on above: Performed By: #### SANDRO MERCHANTRO ####[facility] [address] [address]Dr. Tadeo Smyth Clarity (U) CLEAR Normal CLEAR [facility] Comment on above: Performed By: #### SANDRO MERCHANTRO ####[facility] Hipxhlcprq[address] [address]Dr. Tadeo Smyth Color (U) YELLOW Normal YELLOW [facility] Comment on above: Performed By: #### SANDRO MERCHANTRO ####[facility] Tvrhscfrdz[address] [place], [place] [address]Dr. Tadeo PANAHD A micrscopic examina tion will be performed if indicated. Normal [facility] Comment on above: Performed By: #### KAROL MERCHANT ####[facility] Welvfokpwg[address] [address]Dr. Tadeo Smyth Glucose Ql (U) Negative Normal NEGATIVE [facility] Comment on above: Performed By: #### KAROL MERCHANT ####[facility] Pcnrcbmhie[address] [place], [place] [address]Dr. Tadeo Smyth Hemoglobin Ql (U) TRACE-LYSED Abnormal NEGATIVE [facility] Comment on above: Performed By: #### KAROL MERCHANT ####[facility] Guojmigkfd[address] [place], [place] [address]Dr. Tadeo Smyth Ketones Ql (U) TRACE Abnormal NEGATIVE [facility] Comment on above: Performed By: #### KAROL MERCHANT ####[facility] Qhatchertk[address] [place], [place] [address]Dr. Tadeo Smyth LEUKOCYTES Negative Normal NEGATIVE [facility] Comment on above: Performed By: #### KAROL MERCHANT ####[facility] Eondmdexui[address] [place], [place] [address]Dr. Tadeo Smyth Nitrite Ql (U) Negative Normal NEGATIVE [facility] Comment on above: Performed By: #### KAROL MERCHANT ####[facility] Ijvskdaopg[address] [place], [place] [address]Dr. Tadeo Smyth pH (U) 6.0 [pH] Normal 5-9 [facility] Comment on above: Performed By: #### KAROL MERCHANT ####[facility] Kotqmjygst[address] [place], [place] [address]Dr. Tadeo Smyth SPEC GRAVITY >=1.030 Abnormal 1.005-<=1.0 25 [facility] Comment on above: Performed By: #### KAROL MERCHANT ####[facility] [address]xh[address] [place], [place] [address]Dr. Tadeo Smyth UA PROTEIN TRACE Normal NEGATIVE/ TRACE [facility] Comment on above: Performed By: #### RANDI MERCHANTICRO ####[facility] [address] [address]Dr. Tadeo Smyth UR MICRO IND INDICATED Normal [facility] Comment on above: Performed By: #### Matthew FRANCISCO UMICRO ####[facility] [address] [address]Dr. Tadeo Smyth Urobilinogen Qn (U) 0.2 {Benito'U}/dL Normal 0.2 - 1. 0 [facility] Comment on above: Performed By: #### SANDRO MERCHANTRO ####[facility] Zmkcp[address] [place], [place] [address]Dr. Tadeo Smyth LACTATE/LACTIC ACIDon 2021 Lactate [Moles/Vol] 1.3 mmol/L Normal 0.4-1.9 [facility] Comment on above: Performed By: #### L ACT ####[facility] Rgztjyncxm[address] [place], [place] [address]Dr. Tadeo Smyth LIPASEon 08-08-2022 Lipase [Catalytic activity/Vol] 120.0 U/L Normal 73.0-393.0 [facility] Comment on above: Performed By: #### C MP, VIJI, LIPA, CMADM ####[facility] Bkuruwpukt[address] [place], [place] [address]Dr. Tadeo Smyth PROF 14(COMP METB)on 022 Albumin [Mass/Vol] 3.8 g/dL Normal 3.4-5.0 [facility] Comment on above: Performed By: #### C MP, VIJI, LIPA, CMADM ####[facility] Fnxh[address]ywqc[address] [place], [place] [address]Dr. Tadeo Smyth Albumin/Globulin [Mass ratio] 1.1 {ratio} Normal [facility] Comment on above: Performed By: #### C MP, VIJI, LIPA, CMADM ####[facility] [address] [address]Dr. Tadeo Smyth ALP [Catalytic activity/Vol] 145 U/L Critically high 46-116 [facility] Comment on above: Performed By: #### C MP, VIJI, LIPA, CMADM ####[facility] B[address]swiz[address] [address]Dr. Tadeo Smyth ALT [Catalytic activity/Vol] 30 U/L Normal 14-59 [facility] Comment on above: Performed By: #### C MP, VIJI, LIPA, CMADM ####[facility] [address]qf[address]rl[address] [address]Dr. Tadeo Smyth Anion gap [Moles/Vol] 11.5 mmol/L Normal [facility] Comment on above: Performed By: #### C MP, VIJI, LIPA, CMADM ####[facility] [address]st[address] [address]Dr. Tadeo Smyth AST [Catalytic activity/Vol] 17 U/L Normal 15-37 [facility] Comment on above: Performed By: #### C MP, VIJI, LIPA, CMADM ####[facility] [address]cos[address] [address]Dr. Tadeo Smyth Bilirubin [Mass/Vol] 0.1 mg/dL Critically low 0.2-1.0 [facility] Comment on above: Performed By: #### C MP, VIJI, LIPA, CMADM ####[facility] [address] [address]Dr. Tadeo Smyth Calcium [Mass/Vol] 8.9 mg/dL Normal 8.5-10.1 [facility] Comment on above: Performed By: #### C MP, VIJI, LIPA, CMADM ####[facility] [address] [address]Dr. Tadeo Smyth Chloride [Moles/Vol] 104 mmol/L Normal 98-107 [facility] Comment on above: Performed By: #### C MP, VIJI, LIPA, CMADM ####[facility] [address] [address]Dr. Tadeo Smyth CO2 [Moles/Vol] 27.2 mmol/L Normal 21.0-32.0 [facility] Comment on above: Performed By: #### C MP, VIJI, LIPA, CMADM ####[facility] [address]xcysq[address] [address]Dr. Tadeo Smyth Creatinine [Mass/Vol] 0.90 mg/dL Normal 0.55-1.02 [facility] Comment on above: Performed By: #### C MP, VIJI, LIPA, CMADM ####[facility] [address] [address]Dr. Tadeo Smyth EGFR-AF FIJIAN >60 Normal >=60 [facility] Comment on above: Performed By: #### C MP, VIJI, LIPA, CMADM ####[facility] [address] [address]Dr. Tadeo Smyth EGFR-NON AF FIJIAN >60 Normal >=60 [facility] Comment on above: Performed By: #### C MP, VIJI, LIPA, CMADM ####[facility] Obhebaxsic[address] [place], [place] [address]Dr. Tadeo Smyth Globulin (S) [Mass/Vol] 3.5 g/dL Normal [facility] Comment on above: Performed By: #### C MP, VIJI, LIPA, CMADM ####[facility] Cfbqhdwhnx[address] [place], [place] [address]Dr. Tadeo Smyth Glucose [Mass/Vol] 98 mg/dL Normal 74-106 [facility] Comment on above: Performed By: #### C MP, VIJI, LIPA, CMADM ####[facility] [address]vy[address] [address]Dr. Tadeo Smyth Potassium [Moles/Vol] 3.7 mmol/L Normal 3.5-5.1 [facility] Comment on above: Performed By: #### C MP, VIJI, LIPA, CMADM ####[facility] Isolcgsjxo[address] [place], [place] [address]Dr. Tadeo Smyth Protein [Mass/Vol] 7.3 g/dL Normal 6.4-8.2 [facility] Comment on above: Performed By: #### C MP, VIJI, LIPA, CMADM ####[facility] It[address]ultvgo[address] [address]Dr. Tadeo Smyth Sodium [Moles/Vol] 139 mmol/L Normal 136-145 [facility] Comment on above: Performed By: #### C MP, VIJI, LIPA, CMADM ####[facility] [address]ickevx[address] [place] [address]Dr. Tadeo Smyth Urea nitrogen [Mass/Vol] 25.0 mg/dL Critically high 7.0-18.0 [facility] Comment on above: Performed By: #### C MP, VIJI, LIPA, CMADM ####[facility] [address]blsqzt[address] [address]Dr. Tadeo Smyth Urea nitrogen/Creatinine [Mass ratio] 27.8 mg/mg Normal [facility] Comment on above: Performed By: #### C MP, VIJI, LIPA, CMADM ####[facility] [address]cw[address] [place] [address]Dr. Tadeo Smyth URINE MICROSCOPIC ONLYon BACTERIA NONE SEEN Normal NONE SEEN [facility] Comment on above: Performed By: #### Matthew FRANCISCO UMICRO ####[facility] Qbhtiydswh[address] [place], [place] [address]Dr. Tadeo Smyth Bacteria identified Cx Nom (U) NOT INDICATED Normal [facility] Comment on above: Performed By: #### Matthew FRANCISCO UMICRO ####[facility] [address] [place] [address]Dr. Tadeo Smyth CAST NONE SEEN Normal NONE SEEN [facility] Comment on above: Performed By: #### Matthew FRANCISCO UMICRO ####[facility] Ivamvsesmp[address] [place], [place] [address]Dr. Tadeo Smyth Crystals LM Nom (Urine sed) NONE SEEN Normal NONE SEEN [facility] Comment on above: Performed By: #### Matthew FRANCISCO UMICRO ####[facility] [address]rnbxb[address] [place] [address]Dr. Tadeo Smyth Epithelial cells LM Ql (Urine sed) FEW Abnormal NONE SEEN /RARE [facility] Comment on above: Performed By: #### KAROL MERCHANT ####[facility] [address]ugs[address] [place], [place] [address]Ta. Tadeo Smyth MUCOUS NONE SEEN Normal NONE SEEN [facility] Comment on above: Performed By: #### KAROL MERCHANT ####[facility] X[address]abf[address] [place], [place] [address]Qt. Tadeo Smyth RBC 2-5 Abnormal 0-2 [facility] Comment on above: Performed By: #### KAROL MERCHANT ####[facility] [address] [place], [place] [address]Rc. Tadeo Smyth WBC NONE SEEN Normal NONE SEEN [facility] Comment on above: Performed By: #### KAROL MERCHANT ####[facility] Innbxorjoy[address] [place], [place] [address]Um. Tadeo Smyth Gastroenterology Office/Clin ic Noteon 07-24-2022 [...] Nunez to record this visit. JOSE FRANCISCO news specialist and provider reviewed before signing. JOSE [...] 10 mg= (more content not included)... Normal [facility] Comment on above: Result Comment: Elec tronically Signed By: Agata Nunes\.br\Date and Time Signed: 07/22/22 16:25 EST\.br\Electronically Co-Signed By: Anai REAGAN MD\.br\Date and Time Co-Signed: 11/19/22 15:06 EST AMYLASEon 07-21-2022 Amylase [Catalytic activity/Vol] 49 U/L Normal 25-115 [facility] Comment on above: Performed By: #### L VIJI HALL, CMP ####[facility] [address]ufshe[address] [place] [address]Dr. Tadeo Smyth CBC AUTO DIFFon 07-21-2022 BASO # 0.0 103/ul Normal 0.0-0.1 [facility] Comment on above: Performed By: #### C BC ####[facility] [address]dkakm[address] [address]Dr. Tadeo Smyth Basophils/100 WBC (Bld) 0.6 % Normal 0.2-2.0 [facility] Comment on above: Performed By: #### C BC ####[facility] Ymebpmacyv[address] [place] [address]Dr. Tadeo Smyth EO # 0.2 103/ul Normal 0.0-0.7 [facility] Comment on above: Performed By: #### C BC ####[facility] Ukbjgrotil[address] [place], [place] [address]Dr. Tadeo Smyth Eosinophils/100 WBC (Bld) 3.1 % Normal 0.9-7.0 [facility] Comment on above: Performed By: #### C BC ####[facility] [address]jjuatm[address] [place] [address]Dr. Tadeo Smyth Erythrocyte distribution width (RBC) [Ratio] 13.2 % Normal 11.0-15.0 [facility] Comment on above: Performed By: #### C BC ####[facility] [address]cmlm[address] [place] [address]Dr. Tadeo Smyth Hematocrit (Bld) [Volume fraction] 35.7 % Critically low 36.0-48.0 [facility] Comment on above: Performed By: #### C BC ####[facility] [address]nuopdgk[address] [place] [address]Dr. Tadeo Smyth Hemoglobin (Bld) [Mass/Vol] 11.6 g/dL Critically low 12.0-16.0 [facility] Comment on above: Performed By: #### C BC ####[facility] [address] [place] [id number]. Tadeo Smyth IG # 0.01 10e3/ul Normal 0.00-0.03 [facility] Comment on above: Performed By: #### C BC ####[facility] [address]mdrdt[address] [place] [address]Dr. Tadeo Smyth IG % 0.2 % Normal 0.0-0.5 [facility] Comment on above: Performed By: #### C BC ####[facility] [address]wgweg[address] [place] [address]Dr. Tadeo Smyth LYMPH # 1.9 103/ul Normal 1.2-3.8 [facility] Comment on above: Performed By: #### C BC ####[facility] Yxnejerisu[address] [place] [address]Dr. Tadeo Smyth Lymphocytes/100 WBC (Bld) 34.8 % Normal 20.5-60.0 [facility] Comment on above: Performed By: #### C BC ####[facility] Qrlknbwaec[address] [place] [address]Dr. Tadeo Smyth MANUAL DIFF REQ NO Normal [facility] Comment on above: Performed By: #### C BC ####[facility] Dhctejobkf[address] [place] [address]Dr. Tadeo Smyth MCH (RBC) [Entitic mass] 29.1 pg Normal 26.7-34.0 [facility] Comment on above: Performed By: #### C BC ####[facility] Cyancjhnxg[address] [place] [address]Dr. Tadeo Smyth MCHC (RBC) [Mass/Vol] 32.5 g/dL Normal 29.9-35.2 [facility] Comment on above: Performed By: #### C BC ####[facility] P[address]outlchh[address] [place] [address]Dr. Tadeo Smyth MCV (RBC) [Entitic vol] 89.7 fL Normal 81.0-99.0 [facility] Comment on above: Performed By: #### C BC ####[facility] [address]ibv[address] [place] [address]Dr. Tadeo Smyth MONO # 0.3 103/ul Normal 0.3-0.8 [facility] Comment on above: Performed By: #### C BC ####[facility] Ioukoypzrc46[address] [place] [address]Dr. Tadeo Smyth Monocytes/100 WBC (Bld) 6.1 % Normal 1.7-12.0 [facility] Comment on above: Performed By: #### C BC ####[facility] Eugxwxcgwo[address] [place] [address]Dr. Tadeo Smyth NEUT # 3.0 103/ul Normal 1.4-6.5 [facility] Comment on above: Performed By: #### C BC ####[facility] Tgaklpsbqs[address] [place] [address]Dr. Tadeo Smyth Neutrophils/100 WBC (Bld) 55.2 % Normal 43.0-75.0 [facility] Comment on above: Performed By: #### C BC ####[facility] [address]ucnltqrxf36[address] [place] [phone]. Tadeo Smyth Platelet mean volume (Bld) [Entitic vol] 9.0 fL Critically low 9.5-13.5 [facility] Comment on above: Performed By: #### C BC ####[facility] [address]xqgtackut[address] [place] [address]Dr. Tadeo Smyth PLT 358 103/ul Normal 150-450 [facility] Comment on above: Performed By: #### C BC ####[facility] Gxadrcjlhs07[address] [place] [phone]. Tadeo Smyth RBC 3.98 106/ul Critically low 4.20-5.40 [facility] Comment on above: Performed By: #### C BC ####[facility] Wpcqpqfjrl9726 [place] [phone]. Tadeo Smyth WBC 5.4 103/ul Normal 4.0-11.0 [facility] Comment on above: Performed By: #### C BC ####[facility] F[address]mpdxxkj[address] [place], [place] [address]Dr. Tadeo Smyth LIPASEon 07-21-2022 Lipase [Catalytic activity/Vol] 54.0 U/L Critically low 73.0-393.0 [facility] Comment on above: Performed By: #### L VIJI HALL, CMP ####[facility] B[address]awzbapt[address] [place] [address]Dr. Tadeo Smyth PROF 14(COMP METB)on 022 Albumin [Mass/Vol] 3.5 g/dL Normal 3.4-5.0 [facility] Comment on above: Performed By: #### L VIJI HALL, CMP ####[facility] Kthvxnegde20[address] [place] [address]Dr. Tadeo Smyth Albumin/Globulin [Mass ratio] 0.9 {ratio} Normal [facility] Comment on above: Performed By: #### L VIJI HALL, CMP ####[facility] Pvnhgmfcak8[address] [place] [address]Dr. Tadeo Smyth ALP [Catalytic activity/Vol] 127 U/L Critically high 46-116 [facility] Comment on above: Performed By: #### L VIJI HALL, CMP ####[facility] Ydudnovons[address] [place] [address]Dr. Tadeo Smyth ALT [Catalytic activity/Vol] 16 U/L Normal 14-59 [facility] Comment on above: Performed By: #### L VIJI HALL, CMP ####[facility] Crcsitgabd[address] [place] [address]Dr. Tadeo Smyth Anion gap [Moles/Vol] 10.6 mmol/L Normal [facility] Comment on above: Performed By: #### L VIJI HALL, CMP ####[facility] Acxnnpzskw[address] [place] [address]Dr. Tadeo Smyth AST [Catalytic activity/Vol] 16 U/L Normal 15-37 [facility] Comment on above: Performed By: #### L VIJI HALL, CMP ####[facility] Dxsbvsmxnz25[address] [place] [address]Dr. Tadeo Smyth Bilirubin [Mass/Vol] 0.3 mg/dL Normal 0.2-1.0 [facility] Comment on above: Performed By: #### L VIJI HALL, CMP ####[facility] Xicrcsemil[address] [place], [place] [address]Dr. Tadeo Smyth Calcium [Mass/Vol] 9.1 mg/dL Normal 8.5-10.1 [facility] Comment on above: Performed By: #### L VIJI HALL, CMP ####[facility] Zslemfpsas[address] [place], [place] [address]Dr. Tadeo Smyth Chloride [Moles/Vol] 104 mmol/L Normal 98-107 [facility] Comment on above: Performed By: #### L VIJI HALL, CMP ####[facility] Sexbbhhbds[address] [place], [place] [address]Dr. Tadeo Smyth CO2 [Moles/Vol] 28.0 mmol/L Normal 21.0-32.0 [facility] Comment on above: Performed By: #### L VIJI HALL, CMP ####[facility] [address]it[address] [address] [place], [place] [address]Dr. Tadeo Smyth Creatinine [Mass/Vol] 0.96 mg/dL Normal 0.55-1.02 [facility] Comment on above: Performed By: #### L VIJI HALL, CMP ####[facility] Dyynkmfwdf[address] [place], [place] [address]Dr. Tadeo Smyth EGFR-AF FIJIAN >60 Normal >=60 [facility] Comment on above: Performed By: #### L VIJI HALL, CMP ####[facility] Tdjecjjcyu[address] [place], [place] [address]Dr. Tadeo Smyht EGFR-NON AF FIJIAN >60 Normal >=60 [facility] Comment on above: Performed By: #### L VIJI HALL, CMP ####[facility] Mpersbituo[address] [place], [place] [address]Dr. Tadeo Smyth Globulin (S) [Mass/Vol] 3.8 g/dL Normal [facility] Comment on above: Performed By: #### L VIJI HALL, CMP ####[facility] Dbegutmetb[address] [place], [place] [address]Dr. Tadeo Smyth Glucose [Mass/Vol] 93 mg/dL Normal 74-106 [facility] Comment on above: Performed By: #### L VIJI HALL, CMP ####[facility] [address] [place] [address]Dr. Tadeo Smyth Potassium [Moles/Vol] 3.6 mmol/L Normal 3.5-5.1 [facility] Comment on above: Performed By: #### L VIJI HALL, CMP ####[facility] S[address]qyonddo[address] [place] [address]Dr. Tadeo Smyth Protein [Mass/Vol] 7.3 g/dL Normal 6.4-8.2 [facility] Comment on above: Performed By: #### L VIJI HALL, CMP ####[facility] Dvbdinjqvz[address] [place], [place] [address]Dr. Tadeo Smyth Sodium [Moles/Vol] 139 mmol/L Normal 136-145 [facility] Comment on above: Performed By: #### L VIJI HALL, CMP ####[facility] Ncmbczssfr[address] [place], [place] [address]Dr. Tadeo Smyth Urea nitrogen [Mass/Vol] 16.0 mg/dL Normal 7.0-18.0 [facility] Comment on above: Performed By: #### L VIJI HALL, CMP ####[facility] Rurcyrcnts[address] [place], [place] [address]Dr. Tadeo Smyth Urea nitrogen/Creatinine [Mass ratio] 16.7 mg/mg Normal [facility] Comment on above: Performed By: #### L VIJI HALL, CMP ####[facility] Kabdwvtogf[address] [place], [place] [address]Dr. Tadeo Smyth XR ABD FLAT UP_PA Kasey 07-21 XR ABD FLAT UP_PA CH Normal [facility] CULTURE URINEon 07-10-2022 CULTURE URINE Normal [facility] Comment on above: Performed By: #### U RCX ####[facility] Blbkvprobg[address] [place], [place] [address]Dr. Tadeo Smyth INSULINon 07-09-2022 Insulin 15.9 uIU/mL Normal 2.6-24.9 [facility] Comment on above: Performed By: #### I NSULIN ####[facility] Vlocrvzeme34[address] [place], [place] [address]Dr. Tadeo Smyth CBC AUTO DIFFon 07-08-2022 BASO # 0.0 103/ul Normal 0.0-0.1 [facility] Comment on above: Performed By: #### C BC ####[facility] Nqdnswcjiy[address] [place], [place] [address]Dr. Tadeo Smyth Basophils/100 WBC (Bld) 0.6 % Normal 0.2-2.0 [facility] Comment on above: Performed By: #### C BC ####[facility] Tvbsgaixpe[address] [place], [place] [address]DrNeo Smyth EO # 0.2 103/ul Normal 0.0-0.7 [facility] Comment on above: Performed By: #### C BC ####[facility] Qqmdgligvc9[address] [place], [place] [address]DrNeo Smyth Eosinophils/100 WBC (Bld) 3.4 % Normal 0.9-7.0 [facility] Comment on above: Performed By: #### C BC ####[facility] Bafmxfuumr[address] [place], [place] [address]DrNeo Smyth Erythrocyte distribution width (RBC) [Ratio] 13.1 % Normal 11.0-15.0 [facility] Comment on above: Performed By: #### C BC ####[facility] Ldhldajzgy8[address] [place], [place] [address]Dr. Tadeo Smyth Hematocrit (Bld) [Volume fraction] 42.4 % Normal 36.0-48.0 [facility] Comment on above: Performed By: #### C BC ####[facility] Vuhetqqknu[address]37[address] [place], [place] [address]DrNeo Smyth Hemoglobin (Bld) [Mass/Vol] 13.7 g/dL Normal 12.0-16.0 [facility] Comment on above: Performed By: #### C BC ####[facility] Hfkttcknrx[address] [place], [place] [address]Dr. Tadeo Smyth IG # 0.01 10e3/ul Normal 0.00-0.03 [facility] Comment on above: Performed By: #### C BC ####[facility] [address]qsx[address] [place] [address]Dr. Tadeo Smyth IG % 0.2 % Normal 0.0-0.5 [facility] Comment on above: Performed By: #### C BC ####[facility] Q[address]xktrx[address] [place] [address]DrNeo Smyth LYMPH # 2.1 103/ul Normal 1.2-3.8 [facility] Comment on above: Performed By: #### C BC ####[facility] Qnbkwzphon18[address] [place] [address]DrNeo Smyth Lymphocytes/100 WBC (Bld) 41.2 % Normal 20.5-60.0 [facility] Comment on above: Performed By: #### C BC ####[facility] Jztxrdycdc[address] [place], [place] [address]DrNeo Smyth MANUAL DIFF REQ NO Normal [facility] Comment on above: Performed By: #### C BC ####[facility] Mdogmiqnpa56[address] [place], [place] [address]DrNeo Smyth MCH (RBC) [Entitic mass] 28.8 pg Normal 26.7-34.0 [facility] Comment on above: Performed By: #### C BC ####[facility] Exftivkedy[address] [place] [address]DrNeo Smyth MCHC (RBC) [Mass/Vol] 32.3 g/dL Normal 29.9-35.2 [facility] Comment on above: Performed By: #### C BC ####[facility] At[address]pwxdwk9[address] [place] [address]DrNeo Smyth MCV (RBC) [Entitic vol] 89.3 fL Normal 81.0-99.0 [facility] Comment on above: Performed By: #### C BC ####[facility] Ufdanwewyf[address] [place], [place] [address]DrNeo Smyth MONO # 0.4 103/ul Normal 0.3-0.8 [facility] Comment on above: Performed By: #### C BC ####[facility] Npkjabfeul350[address] [place] [id number]. Tadeo Smyth Monocytes/100 WBC (Bld) 8.1 % Normal 1.7-12.0 [facility] Comment on above: Performed By: #### C BC ####[facility] Unemospdmf3[address] [place] [id number]. Tadeo Smyth NEUT # 2.4 103/ul Normal 1.4-6.5 [facility] Comment on above: Performed By: #### C BC ####[facility] Qlreiazotj[address] [place] [address]Dr. Tadeo Smyth Neutrophils/100 WBC (Bld) 46.5 % Normal 43.0-75.0 [facility] Comment on above: Performed By: #### C BC ####[facility] Jpvgkwoapa[address] [place] [address]Dr. Tadeo Smyth Platelet mean volume (Bld) [Entitic vol] 9.3 fL Critically low 9.5-13.5 [facility] Comment on above: Performed By: #### C BC ####[facility] Q[address]ojbhojc[address] [place] [address]Dr. Tadeo Smyth PLT 443 103/ul Normal 150-450 [facility] Comment on above: Performed By: #### C BC ####[facility] Tuqvqfeznb[address] [place] [phone]. Tadeo Smyth RBC 4.75 106/ul Normal 4.20-5.40 [facility] Comment on above: Performed By: #### C BC ####[facility] Cqwwbrsrfk4[address] [place] [phone]. Tadeo Smyth WBC 5.1 103/ul Normal 4.0-11.0 [facility] Comment on above: Performed By: #### C BC ####[facility] Xjosmmixzt8[address] [place] [phone]. Tadeo Smyth FREE THYROXINE INDEX T7on FTI 2.91 Normal 1.30-4.50 [facility] Comment on above: Performed By: #### T 7, LIPID, TSH, CMP ####[facility] F[address]dduxatl[address] [place] [address]Dr. Tadeo Smyth T3U 31.0 % Normal 30.0-39.0 [facility] Comment on above: Performed By: #### T 7, LIPID, TSH, CMP ####[facility] Mcsoosnuwk[address] [place] [address]Dr. Tadeo Smyth T4 [Mass/Vol] 9.40 ug/dL Normal 4.80-13.90 [facility] Comment on above: Performed By: #### T 7, LIPID, TSH, CMP ####[facility] Ibgsvuxbst[address] [place], [place] [address]Dr. Tadeo Smyth GLYCOHEMOGLOBIN A1Con 2021 ADA RECOMMENDATION SEE BELOW Normal [facility] Comment on above: Result Comment: ADA RECOMMENDED LIMIT 4.0 - 6.0 ADA THERAPEUTIC TARGET < 7.0 ACTION SUGGESTED > 7.0 Performed By: #### A 1C ####[facility] Whpahcgwpi[address] [place], [place] [address]Dr. Margotnicole Smyth Glucose [Mass/Vol] 120 mg/dL Normal [facility] Comment on above: Performed By: #### A 1C ####[facility] [address] [place] [address]Dr. Tadeo Smyth HbA1c (Bld) [Mass fraction] 5.8 % Normal 4.5-6.2 [facility] Comment on above: Performed By: #### A 1C ####[facility] M[address]ctmeynk[address] [place] [address]Dr. Tadeo Smyth IRONon 07-08-2022 Iron [Mass/Vol] 59.0 ug/dL Normal 50.0-170.0 [facility] Comment on above: Performed By: #### I KEEGAN ####[facility] Kyzeucqaxu[address] [place], [place] [address]Dr. Tadeo Smyth LIPID PROFILEon 07-08-2022 CHOL-HDL RATIO NORM SEE BELOW Normal [facility] Comment on above: Result Comment: 3.3 - 4.4 LOW RISK 4.4 - 7.1 AVERAGE RISK 7.1 - 11.0 MODERATE RISK >11.0 HIGH RISK Performed By: #### T 7, LIPID, TSH, CMP ####[facility] [address]ds[address] [place] [phone]. Tadeo Smyth Cholesterol [Mass/Vol] 227 mg/dL Critically high <=200 [facility] Comment on above: Performed By: #### T 7, LIPID, TSH, CMP ####[facility] [address]chtfias[address] [place] [phone]. Margotlan Smyth Cholesterol in HDL [Mass/Vol] 67 mg/dL Critically high 40-60 [facility] Comment on above: Performed By: #### T 7, LIPID, TSH, CMP ####[facility] Ophrihumjf[address] [place] [phone]. Tadeo Smyth Cholesterol in LDL [Mass/Vol] 139.0 mg/dL Normal [facility] Comment on above: Performed By: #### T 7, LIPID, TSH, CMP ####[facility] Qbtclmyjqs55[address] [place] [phone]. Tadeo Smyth Cholesterol.total/Cho lesterol in HDL [Mass ratio] 3.4 {ratio} Normal [facility] Comment on above: Performed By: #### T 7, LIPID, TSH, CMP ####[facility] [address]fr[address]mw[address] [place] [phone]. Margotlan Smyth HDL NORMAL > or = 60 mg/dl - LO W CARDIOVASCULAR RISK <40 mg/dl - HIGH CARDIOVASCULAR RISK Normal [facility] Comment on above: Performed By: #### T 7, LIPID, TSH, CMP ####[facility] Ppoqozcupt60[address] [place] [phone]. Margotlan Smyth LDL CALC NORMAL SEE BELOW Normal [facility] Comment on above: Result Comment: <100 mg/dl OPTIMAL 100 - 129 mg/dl NEAR OR ABOVE OPTIMAL 130 - 159 mg/dl BORDERLINE HIGH 160 - 189 mg/dl HIGH >190 mg/dl VERY HIGH Performed By: #### T 7, LIPID, TSH, CMP ####[facility] Fkxweangop[address] [place] [address]Dr. Tadeo Smyth Triglyceride [Mass/Vol] 105 mg/dL Normal <=150 [facility] Comment on above: Performed By: #### T 7, LIPID, TSH, CMP ####[facility] Y[address]toyi[address] [place] [address]Dr. Tadeo Smyth VLDL CALC 21.0 mg/dL Normal [facility] Comment on above: Performed By: #### T 7, LIPID, TSH, CMP ####[facility] [address]qupdqkuz[address] [place] [address]Dr. Tadeo Smyth OCC BLD IMMUNO SCREENon OCCULT BLOOD Negative Normal NEGATIVE [facility] Comment on above: Performed By: #### O BSCRN ####[facility] [address]vpqf[address] [place] [address]Dr. Tadeo Smyth PROF 14(COMP METB)on 022 Albumin [Mass/Vol] 3.7 g/dL Normal 3.4-5.0 [facility] Comment on above: Performed By: #### T 7, LIPID, TSH, CMP ####[facility] Rykaibnkjk[address] [place] [address]Dr. Tadeo Smyth Albumin/Globulin [Mass ratio] 0.8 {ratio} Normal [facility] Comment on above: Performed By: #### T 7, LIPID, TSH, CMP ####[facility] [address]jllkcod[address] [place] [address]Dr. aTdeo Smyth ALP [Catalytic activity/Vol] 141 U/L Critically high 46-116 [facility] Comment on above: Performed By: #### T 7, LIPID, TSH, CMP ####[facility] Ihzuefqbeg59[address] [place] [phone]. Tadeo Smyth ALT [Catalytic activity/Vol] 23 U/L Normal 14-59 [facility] Comment on above: Performed By: #### T 7, LIPID, TSH, CMP ####[facility] Xdhdjafpcb[address] [place] [address]Dr. Tadeo Smyth Anion gap [Moles/Vol] 9.8 mmol/L Normal [facility] Comment on above: Performed By: #### T 7, LIPID, TSH, CMP ####[facility] Xdpyqjesji[address] [place] [address]Dr. Tadeo Smyth AST [Catalytic activity/Vol] 13 U/L Critically low 15-37 [facility] Comment on above: Performed By: #### T 7, LIPID, TSH, CMP ####[facility] Vbtbertpcz[address] [place] [address]Dr. Tadeo Smyth Bilirubin [Mass/Vol] 0.4 mg/dL Normal 0.2-1.0 [facility] Comment on above: Performed By: #### T 7, LIPID, TSH, CMP ####[facility] Hbioshxorc[address] [place], [place] [address]Dr. Tadeo Smyth Calcium [Mass/Vol] 10.2 mg/dL Critically high 8.5-10.1 [facility] Comment on above: Performed By: #### T 7, LIPID, TSH, CMP ####[facility] Gcupiofdmc[address] [place], [place] [address]Dr. Tadeo Smyth Chloride [Moles/Vol] 101 mmol/L Normal 98-107 [facility] Comment on above: Performed By: #### T 7, LIPID, TSH, CMP ####[facility] Ffkvqmkjxe[address] [place], [place] [address]Dr. Tadeo Smyth CO2 [Moles/Vol] 32.8 mmol/L Critically high 21.0-32.0 [facility] Comment on above: Performed By: #### T 7, LIPID, TSH, CMP ####[facility] Ifrulnrpkc[address] [place], [place] [address]Dr. Tadeo Smyth Creatinine [Mass/Vol] 0.92 mg/dL Normal 0.55-1.02 [facility] Comment on above: Performed By: #### T 7, LIPID, TSH, CMP ####[facility] Swv[address]hmnis[address] [place] [address]Dr. Tadeo Smyth EGFR-AF FIJIAN >60 Normal >=60 [facility] Comment on above: Performed By: #### T 7, LIPID, TSH, CMP ####[facility] [address]qdrrfwwq36[address] [place] [phone]. Tadeo Smyth EGFR-NON AF FIJIAN >60 Normal >=60 [facility] Comment on above: Performed By: #### T 7, LIPID, TSH, CMP ####[facility] Ouycipsrfs[address] [place] [address]Dr. Tadeo Smyth Globulin (S) [Mass/Vol] 4.8 g/dL Normal [facility] Comment on above: Performed By: #### T 7, LIPID, TSH, CMP ####[facility] Thxyfebojo32[address] [place] [address]Dr. Tadeo Smyth Glucose [Mass/Vol] 114 mg/dL Critically high 74-106 [facility] Comment on above: Performed By: #### T 7, LIPID, TSH, CMP ####[facility] Ziuvykvwam[address] [place] [address]Dr. Tadeo Smyth Potassium [Moles/Vol] 3.6 mmol/L Normal 3.5-5.1 [facility] Comment on above: Performed By: #### T 7, LIPID, TSH, CMP ####[facility] O[address]ytibhhe[address] [place] [address]Dr. Tadeo Smyth Protein [Mass/Vol] 8.5 g/dL Critically high 6.4-8.2 [facility] Comment on above: Performed By: #### T 7, LIPID, TSH, CMP ####[facility] Cdlmwopeuy45[address] [place] [address]Dr. Tadeo Smyth Sodium [Moles/Vol] 140 mmol/L Normal 136-145 [facility] Comment on above: Performed By: #### T 7, LIPID, TSH, CMP ####[facility] Qow[address]kwvwvk3[address] [place] [address]Dr. Tadeo Smyth Urea nitrogen [Mass/Vol] 23.0 mg/dL Critically high 7.0-18.0 [facility] Comment on above: Performed By: #### T 7, LIPID, TSH, CMP ####[facility] Muvpbmcsyt4[address] [place] [address]Dr. Tadeo Smyth Urea nitrogen/Creatinine [Mass ratio] 25.0 mg/mg Normal [facility] Comment on above: Performed By: #### T 7, LIPID, TSH, CMP ####[facility] Dhhxfvmdec[address] [place] [address]Dr. Tadeo Smyth TSHon 07-08-2022 TSH 3.748 uIU/mL Critically high 0.358-3.740 [facility] Comment on above: Performed By: #### T 7, LIPID, TSH, CMP ####[facility] Wqosnaqbbi[address] [place], [place] [address]Dr. Tadeo Smyth UA RANDOM W/MICROSCOPICon BACTERIA TRACE Abnormal NONE SEEN [facility] Comment on above: Performed By: #### U AMIC ####[facility] Mgfqilqiih[address] [place], [place] [address]Dr. Tadeo Smyth Bilirubin Ql (U) Negative Normal NEGATIVE [facility] Comment on above: Performed By: #### U AMIC ####[facility] Guwzbzxxey[address] [place], [place] [address]Dr. Tadeo Smyth CAST NONE SEEN Normal NONE SEEN [facility] Comment on above: Performed By: #### U AMIC ####[facility] Qqbwedyqku[address] [place], [place] [address]Dr. Tadeo Smyth Clarity (U) CLEAR Normal CLEAR [facility] Comment on above: Performed By: #### U AMIC ####[facility] Eteixmuatb[address] [place], [place] [address]Dr. Tadeo Smyth Color (U) YELLOW Normal YELLOW [facility] Comment on above: Performed By: #### U AMIC ####[facility] Bcoapjytly[address] [place], [place] [address]Dr. Tadeo Smyth Crystals LM Nom (Urine sed) NONE SEEN Normal NONE SEEN [facility] Comment on above: Performed By: #### U AMIC ####[facility] K[address]phlpndt[address] [place] [address]Dr. Tadeo Smyth Epithelial cells LM Ql (Urine sed) FEW Abnormal NONE SEEN /RARE [facility] Comment on above: Performed By: #### U AMIC ####[facility] Eeqratngvc045[address] [place] [address]Dr. Tadeo Smyth Glucose Ql (U) Negative Normal NEGATIVE [facility] Comment on above: Performed By: #### U AMIC ####[facility] Hvjeqqzspk[address] [place], [place] [address]Dr. Tadeo Smyth Hemoglobin Ql (U) SMALL Abnormal NEGATIVE [facility] Comment on above: Performed By: #### U AMIC ####[facility] Ciddacgmla[address] [place], [place] [address]Dr. Tadeo Smyth Ketones Ql (U) TRACE Abnormal NEGATIVE [facility] Comment on above: Performed By: #### U AMIC ####[facility] Tvbzlaksnt[address] [place], [place] [address]Dr. Tadeo Smyth LEUKOCYTES TRACE Abnormal NEGATIVE [facility] Comment on above: Performed By: #### U AMIC ####[facility] Chhmrcqbuz[address] [place], [place] [address]Dr. Tadeo Smyth MUCOUS NONE SEEN Normal NONE SEEN [facility] Comment on above: Performed By: #### U AMIC ####[facility] Lzuklmhrvn[address] [place], [place] [address]Dr. Tadeo Smyth Nitrite Ql (U) Negative Normal NEGATIVE [facility] Comment on above: Performed By: #### U AMIC ####[facility] Vttklhxedz[address] [place], [place] [address]Dr. Tadeo Smyth pH (U) 6.5 [pH] Normal 5-9 [facility] Comment on above: Performed By: #### U AMIC ####[facility] Bcpoyvemeg[address] [place], [place] [address]Dr. Tadeo Smyth RBC 5-10 Abnormal 0-2 [facility] Comment on above: Performed By: #### U AMIC ####[facility] Ewqunpsvlq[address] [place], [place] [address]Dr. Tadeo Smyth SPEC GRAVITY 1.020 Normal 1.005-<=1.0 25 [facility] Comment on above: Performed By: #### U AMIC ####[facility] Lugsrgobkc[address] [place], [place] [address]Dr. Tadeo Smyth UA PROTEIN 30 mg/dl Abnormal NEGATIVE/ TRACE [facility] Comment on above: Performed By: #### U AMIC ####[facility] Otmylqkurw90[address] [place] [phone]. Tadeo Smyth Urobilinogen Qn (U) 0.2 {Benito'U}/dL Normal 0.2 - 1. 0 [facility] Comment on above: Performed By: #### U AMIC ####[facility] Oxkdbhmpum0846 [place] [phone]. Tadeo Smyth WBC 2-5 Abnormal NONE SEEN [facility] Comment on above: Performed By: #### U AMIC ####[facility] Ycnjpnedrm[address] [place] [address]Dr. Tadeo Smyth Covid-19 PCR (CVDTBH)on 06-07 SARS-CoV-2 (COVID-19) RNA CHEN+probe Ql (Unsp spec) Not detected Normal NOT DETECTED [facility] Comment on above: Result Comment: When [...] for this test is supported by the [employer]'s declaration that [...] be used). Performed By: #### C VDTBH ####[facility] Uuqegiaaib[address] [place] [phone]. Tadeo Smyth CULTURE URINEon 06-09-2022 CULTURE URINE Normal [facility] Comment on above: Performed By: #### U RCX ####[facility] [address]jlwygwl[address] [place], [place] [address]Dr. Tadeo Smyth GI PANEL (PCR)on 06-07-2022 Adenovirus F 40/41 Not detected Normal NOT DETECTED [facility] Comment on above: Performed By: #### G IPANEL ####[facility] Yxoukjjdmb[address] [place], [place] [address]Dr. Margotnicole Smyth Astrovirus Not detected Normal NOT DETECTED [facility] Comment on above: Performed By: #### G IPANEL ####[facility] Qhdpfscnli[address] [place], [place] [address]Dr. nicole Smyth C. Diff toxin A/B Not detected Normal NOT DETECTED [facility] Comment on above: Performed By: #### G IPANEL ####[facility] Gfxpiabudw[address] [place], [place] [address]Dr. Margotnicole Smyth Campylobacter Not detected Normal NOT DETECTED [facility] Comment on above: Performed By: #### G IPANEL ####[facility] Gwjxtlsfoo[address] [place], [place] [address]Dr. nicole [facility] Cryptosporidium Not detected Normal NOT DETECTED [facility] Comment on above: Performed By: #### G IPANEL ####[facility] Ejdmckxlav[address] [place], [place] [address]Dr. nicole Smyth Cyclos. Cayetanensis Not detected Normal NOT DETECTED [facility] Comment on above: Performed By: #### G IPANEL ####[facility] Urlhgcpnmz[address] [place], [place] [address]Dr. nicole Smyth E. Coli O157 Not Applicable Normal Not Applicable [facility] Comment on above: Performed By: #### G IPANEL ####[facility] Rmrdcdulxn[address] [place], [place] [address]Dr. [facility] E. histolytica Not detected Normal NOT DETECTED [facility] Comment on above: Performed By: #### G IPANEL ####[facility] Icazxqyvey[address] [place], [place] [address]Dr. nicole [facility] EAEC Not detected Normal NOT DETECTED [facility] Comment on above: Performed By: #### G IPANEL ####[facility] Wttsiekzfb76[address] [place] [id number]. Tadeo Smyth EIEC Not detected Normal NOT DETECTED [facility] Comment on above: Performed By: #### G IPANEL ####[facility] Tvkylteaof[address] [place] [address]Dr. Tadeo Smyth EPEC Not detected Normal NOT DETECTED [facility] Comment on above: Performed By: #### G IPANEL ####[facility] Yyiysklvbk[address] [place], [place] [address]Dr. Tadeo Smyth ETEC Not detected Normal NOT DETECTED [facility] Comment on above: Performed By: #### G IPANEL ####[facility] Qntvlxuwkg097[address] [place], [place] [address]Dr. Margotnicole Smyth G. Lamblia Not detected Normal NOT DETECTED [facility] Comment on above: Performed By: #### G IPANEL ####[facility] Dksrfqgfbo0017[address] [place], [place] [address]Dr. Tadeo Smyth [facility] CONTROL[facility] PASSED Normal [facility] Comment on above: Performed By: #### G IPANEL ####[facility] Ffhxnegqud5210[address] [place], [place] [address]Dr. Tadeo Smyth [facility] HEADER GI PANEL BACTERIA Normal [facility] Comment on above: Performed By: #### G IPANEL ####[facility] Thxblgdsew149[address] [place], [place] [address]Dr. Tadeo MEZAHD ECOLI GI PANEL DIARRHEAGEN IC E.COLI / SHIGELLA Normal [facility] Comment on above: Performed By: #### G IPANEL ####[facility] Uwctzayhse[address] [place], [place] [address]Dr. Tadeo Smyth GIPNLHD INFO SEE BELOW Normal [facility] Comment on above: Result Comment: EAEC - Enteroaggregative E. Coli EPEC- Enteropathogenic E. Coli ETEC- Enterotoxigenic E. Coli lt/st STEC- Shigella-like toxin-producing E. Coli stx1/stx2 EIEC- Shigella/Enteroinvasive E. Coli Performed By: #### G IPANEL ####[facility] Jsccznxxfo701[address] [place], [place] [address]Dr. Tadeo Smyth GIPNLHD PARASITES GI PANEL PARASITES Normal [facility] Comment on above: Performed By: #### G IPANEL ####[facility] Krqlutwsrk910[address] [place], [place] [address]Dr. Tadeo Smyth GIPNLHD VIRUS GI PANEL VIRUSES Normal [facility] Comment on above: Performed By: #### G IPANEL ####[facility] Dretlghfsh986[address] [place], [place] [address]Dr. Tadeo Smyth Norovirus GI/GII Not detected Normal NOT DETECTED [facility] Comment on above: Performed By: #### G IPANEL ####[facility] Ypznigmhsv329[address] [place], [place] [address]Dr. Tadeo Smyth P. Shigelloides Not detected Normal NOT DETECTED [facility] Comment on above: Performed By: #### G IPANEL ####[facility] Yfkxuubqrv1955[address] [place], [place] [address]Dr. Margotnicole Smyth Rotavirus A Not detected Normal NOT DETECTED [facility] Comment on above: Performed By: #### G IPANEL ####[facility] Kvohmcisza6938[address] [place], [place] [address]Dr. Tadeo Smyth Salmonella Not detected Normal NOT DETECTED [facility] Comment on above: Performed By: #### G IPANEL ####[facility] Tzsqcfancg4950[address] [place], [place] [address]Dr. Margotnicole Smyth Sapovirus Not detected Normal NOT DETECTED [facility] Comment on above: Performed By: #### G IPANEL ####[facility] Kupttkmhvk213[address] [place], [place] [address]Dr. Margotnicole Smyth STEC Not detected Normal NOT DETECTED [facility] Comment on above: Performed By: #### G IPANEL ####[facility] Iuyqtybmli337[address] [place], [place] [address]Dr. Tadeo Smyth Vibrio Not detected Normal NOT DETECTED [facility] Comment on above: Performed By: #### G IPANEL ####[facility] Yiwkdsmmtf0960[address] [place], [place] [address]Dr. Margotnicole Smyth Vibrio Cholera Not detected Normal NOT DETECTED [facility] Comment on above: Performed By: #### G IPANEL ####[facility] Twcyafrviu534[address] [place], [place] [address]Dr. Tadeo Smyth Y. Enterocolitica Not detected Normal NOT DETECTED [facility] Comment on above: Performed By: #### G IPANEL ####[facility] Xvtvaobmxf955[address] [place], [place] [address]Dr. Tadeo Smyth AMYLASEon 06-06-2022 Amylase [Catalytic activity/Vol] 61 U/L Normal 25-115 [facility] Comment on above: Performed By: #### A MY, LIPA ####[facility] Ltawpkqpdu4916[address] [place], [place] [address]Dr. Tadeo Smyth CBC AUTO DIFFon 06-06-2022 BASO # 0.0 103/ul Normal 0.0-0.1 [facility] Comment on above: Performed By: #### C BC ####[facility] Wquvcavdrn927[address] [place], [place] [address]Dr. Tadeo Smyth Basophils/100 WBC (Bld) 0.5 % Normal 0.2-2.0 [facility] Comment on above: Performed By: #### C BC ####[facility] Knulfmiqmz4915[address] [place], [place] [address]Dr. Tadeo Smyth EO # 0.2 103/ul Normal 0.0-0.7 [facility] Comment on above: Performed By: #### C BC ####[facility] Dfxelsxfcz0150[address] [place], [place] [address]Dr. Tadeo Smyth Eosinophils/100 WBC (Bld) 3.4 % Normal 0.9-7.0 [facility] Comment on above: Performed By: #### C BC ####[facility] Lceseqtapz449[address] [place], [place] [address]Dr. Tadeo Smyth Erythrocyte distribution width (RBC) [Ratio] 13.2 % Normal 11.0-15.0 [facility] Comment on above: Performed By: #### C BC ####[facility] Xbogcrkotz167[address] [place], [place] [address]Dr. Tadeo Smyth Hematocrit (Bld) [Volume fraction] 38.3 % Normal 36.0-48.0 [facility] Comment on above: Performed By: #### C BC ####[facility] Zwtfqmfarz39[address] [place] [address]DrNeo Smyth Hemoglobin (Bld) [Mass/Vol] 12.0 g/dL Normal 12.0-16.0 [facility] Comment on above: Performed By: #### C BC ####[facility] Ryibklcfvt4911[address] [place], [place] [address]DrNeo Smyth IG # 0.01 10e3/ul Normal 0.00-0.03 [facility] Comment on above: Performed By: #### C BC ####[facility] Indrswtkxk261752 [address] [place], [place] [address]DrNeo Smyth IG % 0.2 % Normal 0.0-0.5 [facility] Comment on above: Performed By: #### C BC ####[facility] Fkwohtcrnl200[address] [place], [place] [address]DrNeo Smyth LYMPH # 1.7 103/ul Normal 1.2-3.8 [facility] Comment on above: Performed By: #### C BC ####[facility] Tqndrcxszz029[address] [place], [place] [address]DrNeo Smyth Lymphocytes/100 WBC (Bld) 28.1 % Normal 20.5-60.0 [facility] Comment on above: Performed By: #### C BC ####[facility] Weagvdgkwu170[address] [place], [place] [address]DrNeo Smyth MANUAL DIFF REQ NO Normal [facility] Comment on above: Performed By: #### C BC ####[facility] Comptjcoqq2388[address] [place], [place] [address]DrNeo Smyth MCH (RBC) [Entitic mass] 28.5 pg Normal 26.7-34.0 [facility] Comment on above: Performed By: #### C BC ####[facility] Qcxihgcuum1999[address] [place], [place] [address]DrNeo Smyth MCHC (RBC) [Mass/Vol] 31.3 g/dL Normal 29.9-35.2 [facility] Comment on above: Performed By: #### C BC ####[facility] Cgqqmjvfzk06[address] [place] [address]DrNeo Frostnicole Haja MCV (RBC) [Entitic vol] 91.0 fL Normal 81.0-99.0 [facility] Comment on above: Performed By: #### C BC ####[facility] Zkiplevkvt5422 [place] [address]DrNeo Smyth MONO # 0.4 103/ul Normal 0.3-0.8 [facility] Comment on above: Performed By: #### C BC ####[facility] Zradejonzg1289 [place] [address]DrNeo Smyth Monocytes/100 WBC (Bld) 7.1 % Normal 1.7-12.0 [facility] Comment on above: Performed By: #### C BC ####[facility] Ecbmbtpwry467[address] [place], [place] [address]DrNeo Smyth NEUT # 3.6 103/ul Normal 1.4-6.5 [facility] Comment on above: Performed By: #### C BC ####[facility] Nktmibdyok169[address] [place], [place] [address]DrNeo Smyth Neutrophils/100 WBC (Bld) 60.7 % Normal 43.0-75.0 [facility] Comment on above: Performed By: #### C BC ####[facility] Nbedgvfndv429[address] [place], [place] [address]DrNeo Smyth Platelet mean volume (Bld) [Entitic vol] 8.9 fL Critically low 9.5-13.5 [facility] Comment on above: Performed By: #### C BC ####[facility] Pcwjfvqigk[address] [place], [place] [address]Dr. Tadeo Smyth PLT 374 103/ul Normal 150-450 [facility] Comment on above: Performed By: #### C BC ####[facility] Qjnjtheeiq36[address] [place] [id number] Smyth RBC 4.21 106/ul Normal 4.20-5.40 [facility] Comment on above: Performed By: #### C BC ####[facility] Nnpnynyycs765352 [address] [place], [place] [address]Dr. Tadeo Smyth WBC 5.9 103/ul Normal 4.0-11.0 [facility] Comment on above: Performed By: #### C BC ####[facility] Xwwutcayod5438[address] [place], [place] [address]Dr. Tadeo Smyht CT ABD/PELV W CONon 06-06-[address] ABD/PELV W CON Normal [facility] ER URINE PROFILEon 2 Bilirubin Ql (U) Negative Normal NEGATIVE [facility] Comment on above: Performed By: #### KAROL MERCHANT ####[facility] Wuocaajhrx212[address] [place], [place] [address]Dr. Tadeo Smyth Clarity (U) CLOUDY Abnormal CLEAR [facility] Comment on above: Performed By: #### KAROL MERCHANT ####[facility] Sfslyjobyq316[address] [place], [place] [address]Dr. Tadeo Smyth Color (U) LT. YELLOW Normal YELLOW [facility] Comment on above: Performed By: #### KAROL MERCHANT ####[facility] Aevzyfhkgj6745[address] [place], [place] [address]Dr. Tadeo Smyth ERUALEMD A micrscopic examina tion will be performed if indicated. Normal [facility] Comment on above: Performed By: #### KAROL MERCHANT ####[facility] Mgpjgnxowt5760[address] [place], [place] [address]Dr. Tadeo Smyth Glucose Ql (U) Negative Normal NEGATIVE [facility] Comment on above: Performed By: #### KAROL MERCHANT ####[facility] Vzesongxqh435[address] [place], [place] [address]Dr. Tadeo Smyth Hemoglobin Ql (U) TRACE-INTACT Abnormal NEGATIVE [facility] Comment on above: Performed By: #### SANDRO MERCHANTRO ####[facility] Hnuihgbkpi698[address] [place], [place] [address]Dr. Tadeo Smyth Ketones Ql (U) Negative Normal NEGATIVE [facility] Comment on above: Performed By: #### SANDRO MERCHANTRO ####[facility] Gefemuqntb46[address] [place] [address]Dr. Tadeo Smyth LEUKOCYTES SMALL Abnormal NEGATIVE [facility] Comment on above: Performed By: #### Matthew FRANCISCO UMICRO ####[facility] Wihuduvsjn63[address] [place] [address]Dr. Tadeo Smyth Nitrite Ql (U) Negative Normal NEGATIVE [facility] Comment on above: Performed By: #### RANDI MERCHANTICRO ####[facility] Tqykbgiwoa8352 [place] [address]Dr. Tadeo Smyth pH (U) 6.0 [pH] Normal 5-9 [facility] Comment on above: Performed By: #### SANDRO MERCHANTRO ####[facility] Orqksvmthx768[address] [place], [place] [address]Dr. Tadeo Smyth SPEC GRAVITY 1.020 Normal 1.005-<=1.[address] [place] [address] Comment on above: Performed By: #### RANDI MERCHANTICRO ####[facility] Nxbyaxozjp2865[address] [place], [place] [address]Dr. Tadeo Smyth UA PROTEIN Negative Normal NEGATIVE/ TRACE [facility] Comment on above: Performed By: #### RANDI MERCHANTICRO ####[facility] Pbxkwtylcn615[address] [place], [place] [address]Dr. Tadeo Smyth UR MICRO IND INDICATED Normal [facility] Comment on above: Performed By: #### RANDI MERCHANTICRO ####[facility] Ynnxseckpk98[address] [place] [address]Dr. Tadeo Smyth Urobilinogen Qn (U) 0.2 {Benito'U}/dL Normal 0.2 - 1. 0 [facility] Comment on above: Performed By: #### Matthew FRANCISCO UMICRO ####[facility] V[address]ursehbva[address] [place] [address]Dr. Tadeo Smyth LIPASEon 06-06-2022 Lipase [Catalytic activity/Vol] 100.0 U/L Normal 73.0-393.0 [facility] Comment on above: Performed By: #### A KEITH MARTÍNEZ ####[facility] Vlorgeroaw834[address] [place], [place] [address]Dr. Tadeo Smyth PROF 14(COMP METB)on 022 Albumin [Mass/Vol] 3.3 g/dL Critically low 3.4-5.0 [facility] Comment on above: Performed By: #### C MP ####[facility] Gkpiyjfepo1815[address] [place], [place] [address]Dr. Tadeo Smyth Albumin/Globulin [Mass ratio] 0.9 {ratio} Normal [facility] Comment on above: Performed By: #### C MP ####[facility] Nxdlqvivcu3620[address] [place], [place] [address]Dr. Tadeo Smyth ALP [Catalytic activity/Vol] 140 U/L Critically high 46-116 [facility] Comment on above: Performed By: #### C MP ####[facility] Lantpgluzi3295[address] [place], [place] [address]Dr. Tadeo Smyth ALT [Catalytic activity/Vol] 23 U/L Normal 14-59 [facility] Comment on above: Performed By: #### C MP ####[facility] Rpombooblm9[address] [place], [place] [address]Dr. Tadeo Smyth Anion gap [Moles/Vol] 11.6 mmol/L Normal [facility] Comment on above: Performed By: #### C MP ####[facility] Umijrusovc4414[address] [place], [place] [address]Dr. Tadeo Smyth AST [Catalytic activity/Vol] 18 U/L Normal 15-37 [facility] Comment on above: Performed By: #### C MP ####[facility] Dkmxmynycq685[address] [place], [place] [address]Dr. Tadeo Smyth Bilirubin [Mass/Vol] 0.2 mg/dL Normal 0.2-1.0 [facility] Comment on above: Performed By: #### C MP ####[facility] Dpzgtvmtkt117[address] [place], [place] [address]Dr. Tadeo Smyth Calcium [Mass/Vol] 8.8 mg/dL Normal 8.5-10.1 [facility] Comment on above: Performed By: #### C MP ####[facility] S[address]whgpdk[address] [place] [address]Dr. Tadeo Smyth Chloride [Moles/Vol] 109 mmol/L Critically high 98-107 [facility] Comment on above: Performed By: #### C MP ####[facility] Untfcfjirl5317 [place] [address]Dr. Tadeo Smyth CO2 [Moles/Vol] 26.3 mmol/L Normal 21.0-32.0 [facility] Comment on above: Performed By: #### C MP ####[facility] Ixsrsmdwrp057[address] [place], [place] [address]Dr. Tadeo Smyth Creatinine [Mass/Vol] 0.81 mg/dL Normal 0.55-1.02 [facility] Comment on above: Performed By: #### C MP ####[facility] Iwkwedszvn604[address] [place], [place] [address]Dr. Tadeo Smyth EGFR-AF FIJIAN >60 Normal >=60 [facility] Comment on above: Performed By: #### C MP ####[facility] Ckchtcxuvb416[address] [place], [place] [address]Dr. Tadeo Smyth EGFR-NON AF FIJIAN >60 Normal >=60 [facility] Comment on above: Performed By: #### C MP ####[facility] Svcangffms[address] [place], [place] [address]Dr. Tadeo Smyth Globulin (S) [Mass/Vol] 3.7 g/dL Normal [facility] Comment on above: Performed By: #### C MP ####[facility] Tgoseqleye6327 [place] [address]Dr. Tadeo Haja Glucose [Mass/Vol] 90 mg/dL Normal 74-106 [facility] Comment on above: Performed By: #### C MP ####[facility] Scwwmeecid069[address] [place], [place] [address]Dr. Tadeo Haja Potassium [Moles/Vol] 3.9 mmol/L Normal 3.5-5.1 [facility] Comment on above: Performed By: #### C MP ####[facility] Rbkplucver18[address] [place] [address]Dr. Tadeo Smyth Protein [Mass/Vol] 7.0 g/dL Normal 6.4-8.2 [facility] Comment on above: Performed By: #### C MP ####[facility] Elmoevidre[address] [place] [address]Dr. Tadeo Smyth Sodium [Moles/Vol] 143 mmol/L Normal 136-145 [facility] Comment on above: Performed By: #### C MP ####[facility] Pifanpfcom6748 [place] [address]Dr. Tadeo Smyth Urea nitrogen [Mass/Vol] 12.0 mg/dL Normal 7.0-18.0 [facility] Comment on above: Performed By: #### C MP ####[facility] Nxmqoykply[address] [place], [place] [address]Dr. Tadeo Smyth Urea nitrogen/Creatinine [Mass ratio] 14.8 mg/mg Normal [facility] Comment on above: Performed By: #### C MP ####[facility] Nyfqmmvpwu5026 [place] [address]Dr. Tadeo Haja URINE MICROSCOPIC ONLYon BACTERIA LARGE Abnormal NONE SEEN [facility] Comment on above: Performed By: #### SANDRO MERCHANTRO ####[facility] Pbsuhnfrii[address] [place] [address]Dr. Tadeo Smyth Bacteria identified Cx Nom (U) INDICATED Normal [facility] Comment on above: Performed By: #### SANDRO MERCHANTRO ####[facility] Unstnomccb[address] [place] [address]Dr. Tadeo Smyth CAST NONE SEEN Normal NONE SEEN [facility] Comment on above: Performed By: #### SANDRO MERCHANTRO ####[facility] Jebkdywcfs4536 [place] [address]Dr. Tadeo Smyth Crystals LM Nom (Urine sed) NONE SEEN Normal NONE SEEN [facility] Comment on above: Performed By: #### SANDRO MERCHANTRO ####[facility] Ooycseakpp668[address] [place] [address]Dr. Tadeo Smyth Epithelial cells LM Ql (Urine sed) RARE Normal NONE SEEN /RARE [facility] Comment on above: Performed By: #### KAROL MERCHANT ####[facility] Qullxikuse5915 [place] [address]Dr. Tadeo Smyth MUCOUS TRACE Abnormal NONE SEEN [facility] Comment on above: Performed By: #### KAROL MERCHANT ####[facility] Jhvxotjaui978[address] [place] [address]Dr. Tadeo Smyth RBC 0-2 Normal 0-2 [facility] Comment on above: Performed By: #### KAROL MERCHANT ####[facility] Cvsazdthgd6602 [place] [address]Dr. Tadeo Smyth WBC 2-5 Abnormal NONE SEEN [facility] Comment on above: Performed By: #### KAROL MERCHANT ####[facility] Zcmmjudeqk199[address] [place], [place] [address]Dr. Tadeo Smyth AMYLASEon 06-04-2022 Amylase [Catalytic activity/Vol] 61 U/L Normal 25-115 [facility] Comment on above: Performed By: #### A MY, CMP, LIPA ####[facility] Kkbljvxxmx[address] [place], [place] [address]Dr. Tadeo Smyth CBC AUTO DIFFon 06-04-2022 BASO # 0.0 103/ul Normal 0.0-0.1 [facility] Comment on above: Performed By: #### C BC ####[facility] Ovsgcrtuhj75[address] [place] [address]Dr. Tadeo Haja Basophils/100 WBC (Bld) 0.5 % Normal 0.2-2.0 [facility] Comment on above: Performed By: #### C BC ####[facility] Uicmmakloh[address] [place] [address]Dr. Tadeo Smyth EO # 0.3 103/ul Normal 0.0-0.7 [facility] Comment on above: Performed By: #### C BC ####[facility] Aenahhevwr37[address] [place] [id number]. Tadeo Smyth Eosinophils/100 WBC (Bld) 4.7 % Normal 0.9-7.0 [facility] Comment on above: Performed By: #### C BC ####[facility] Dqphdohhdu8236 [place] [address]Dr. Tadeo Smyth Erythrocyte distribution width (RBC) [Ratio] 13.2 % Normal 11.0-15.0 [facility] Comment on above: Performed By: #### C BC ####[facility] Mxybosivgn299[address] [place], [place] [address]Dr. Tadeo Smyth Hematocrit (Bld) [Volume fraction] 36.9 % Normal 36.0-48.0 [facility] Comment on above: Performed By: #### C BC ####[facility] Fvuzrmeuoy[address] [place], [place] [address]Dr. Tadeo Smyth Hemoglobin (Bld) [Mass/Vol] 11.9 g/dL Critically low 12.0-16.0 [facility] Comment on above: Performed By: #### C BC ####[facility] Qgwouprmke527[address] [place], [place] [address]Dr. Tadeo Smyth IG # 0.01 10e3/ul Normal 0.00-0.03 [facility] Comment on above: Performed By: #### C BC ####[facility] Zborrihghy4340[address] [place], [place] [address]Dr. Tadeo Smyth IG % 0.2 % Normal 0.0-0.5 [facility] Comment on above: Performed By: #### C BC ####[facility] Uxyvedzxnd217[address] [place], [place] [address]Dr. Tadeo Smyth LYMPH # 2.3 103/ul Normal 1.2-3.8 [facility] Comment on above: Performed By: #### C BC ####[facility] Rvcrqwnocf159[address] [place], [place] [address]Dr. Tadeo Smyth Lymphocytes/100 WBC (Bld) 37.3 % Normal 20.5-60.0 [facility] Comment on above: Performed By: #### C BC ####[facility] Znupqtbwxs2326 [place] [address]Dr. Tadeo Smyth MANUAL DIFF REQ NO Normal [facility] Comment on above: Performed By: #### C BC ####[facility] Nztqiydiwh15[address] [place] [address]Dr. Tadeo Smyth MCH (RBC) [Entitic mass] 29.0 pg Normal 26.7-34.0 [facility] Comment on above: Performed By: #### C BC ####[facility] Wpsbfgedzt149[address] [place], [place] [address]Dr. Tadeo Smyth MCHC (RBC) [Mass/Vol] 32.2 g/dL Normal 29.9-35.2 [facility] Comment on above: Performed By: #### C BC ####[facility] Kbkrdovgkz9[address] [place], [place] [address]Dr. Margotnicole Smyth MCV (RBC) [Entitic vol] 90.0 fL Normal 81.0-99.0 [facility] Comment on above: Performed By: #### C BC ####[facility] Mlrddtwzgw72[address] [place], [place] [address]Dr. Tadeo Smyth MONO # 0.4 103/ul Normal 0.3-0.8 [facility] Comment on above: Performed By: #### C BC ####[facility] Ymnfluwhej938[address] [place], [place] [address]Dr. Tadeo Smyth Monocytes/100 WBC (Bld) 6.8 % Normal 1.7-12.0 [facility] Comment on above: Performed By: #### C BC ####[facility] Cygsxghsbu417[address] [place], [place] [address]Dr. Tadeo Smyth NEUT # 3.2 103/ul Normal 1.4-6.5 [facility] Comment on above: Performed By: #### C BC ####[facility] Hripprywew85[address] [place], [place] [address]Dr. Tadeo Smyth Neutrophils/100 WBC (Bld) 50.5 % Normal 43.0-75.0 [facility] Comment on above: Performed By: #### C BC ####[facility] Pznapxfxym12[address] [place] [id number]. Margotnicole Haja Platelet mean volume (Bld) [Entitic vol] 8.9 fL Critically low 9.5-13.5 [facility] Comment on above: Performed By: #### C BC ####[facility] Vqgqhydklm10[address] [place] [address]Dr. Margotnicole Haja PLT 387 103/ul Normal 150-450 [facility] Comment on above: Performed By: #### C BC ####[facility] Dfuucdrqpt27[address] [place] [address]Dr. Tadeo Smyth RBC 4.10 106/ul Critically low 4.20-5.40 [facility] Comment on above: Performed By: #### C BC ####[facility] Angvxahdfb4560 [place] [address]Dr. Tadeo Smyth WBC 6.2 103/ul Normal 4.0-11.0 [facility] Comment on above: Performed By: #### C BC ####[facility] Gxtwtrubes[address] [place], [place] [address]Dr. Tadeo Smyth CT ABD/PELV W CONon 06-04-[address] ABD/PELV W CON Normal [facility] ER URINE PROFILEon 2 Bilirubin Ql (U) Negative Normal NEGATIVE [facility] Comment on above: Performed By: #### RANDI MERCHANTICRO ####[facility] Xuimaezhcv[address] [place], [place] [address]Dr. Tadeo Smyth Clarity (U) CLEAR Normal CLEAR [facility] Comment on above: Performed By: #### RANDI MERCHATNICRO ####[facility] Crdycqesqe[address] [place] [address]Dr. Tadeo Smyth Color (U) LT. YELLOW Normal YELLOW [facility] Comment on above: Performed By: #### Matthew FRANCISCO UMICRO ####[facility] Frhfjzrryr[address] [place], [place] [address]Dr. Tadeo Smyth ERUAHD A micrscopic examina tion will be performed if indicated. Normal [facility] Comment on above: Performed By: #### KAROL MERCHANT ####[facility] Tkrnzzsrav[address] [place], [place] [address]Dr. Tadeo Smyth Glucose Ql (U) Negative Normal NEGATIVE [facility] Comment on above: Performed By: #### KAROL MERCHANT ####[facility] Ddomhbmvvz[address] [place] [address]Dr. Tadeo Smyth Hemoglobin Ql (U) TRACE-INTACT Abnormal NEGATIVE [facility] Comment on above: Performed By: #### KAROL MERCHANT ####[facility] Ylhvqeqwfu[address] [place], [place] [address]Dr. Tadeo Smyth Ketones Ql (U) Negative Normal NEGATIVE [facility] Comment on above: Performed By: #### KAROL MERCHANT ####[facility] Iavkncfpfi[address] [place], [place] [address]Dr. Tadeo Smyth LEUKOCYTES Negative Normal NEGATIVE [facility] Comment on above: Performed By: #### KAROL MERCHANT ####[facility] Emuhnosnvs[address] [place], [place] [address]Dr. Tadeo Smyth Nitrite Ql (U) Negative Normal NEGATIVE [facility] Comment on above: Performed By: #### KAROL MERCHANT ####[facility] Hvpsgmhzhp[address] [place], [place] [address]Dr. Tadeo Smyth pH (U) 6.5 [pH] Normal 5-9 [facility] Comment on above: Performed By: #### KAROL MERCHANT ####[facility] Nunkdalaoy[address] [place], [place] [address]Dr. Tadeo Smyth SPEC GRAVITY 1.015 Normal 1.005-<=1.0 25 [facility] Comment on above: Performed By: #### KAROL MERCHANT ####[facility] Fpekswdwgj[address] [place], [place] [address]Dr. Tadeo Smyth UA PROTEIN Negative Normal NEGATIVE/ TRACE [facility] Comment on above: Performed By: #### KAROL MERCHANT ####[facility] Yaweibiuno[address] [place], [place] [address]Dr. Tadeo Smyth UR MICRO IND INDICATED Normal [facility] Comment on above: Performed By: #### KAROL MERCHANT ####[facility] Xqqpwtmlmb7[address] [place] [address]Dr. Tadeo Smyth Urobilinogen Qn (U) 0.2 {Benito'U}/dL Normal 0.2 - 1. 0 [facility] Comment on above: Performed By: #### KAROL MERCHANT ####[facility] Eauoppmtvg[address] [place] [address]Dr. Tadeo Smyth LIPASEon 06-04-2022 Lipase [Catalytic activity/Vol] 81.0 U/L Normal 73.0-393.0 [facility] Comment on above: Performed By: #### A MY, CMP, LIPA ####[facility] Qwpkumniak[address] [place] [address]Dr. Tadeo Smyth PROF 14(COMP METB)on 022 Albumin [Mass/Vol] 3.6 g/dL Normal 3.4-5.0 [facility] Comment on above: Performed By: #### A MY, CMP, LIPA ####[facility] Havccsfxko[address] [place] [address]Dr. Tadeo Smyth Albumin/Globulin [Mass ratio] 1.0 {ratio} Normal [facility] Comment on above: Performed By: #### A MY, CMP, LIPA ####[facility] Aijkuvdovg[address] [place] [address]Dr. Tadeo Smyth ALP [Catalytic activity/Vol] 150 U/L Critically high 46-116 [facility] Comment on above: Performed By: #### A MY, CMP, LIPA ####[facility] Swiavtnltn[address] [place] [address]Dr. Tadeo Smyth ALT [Catalytic activity/Vol] 23 U/L Normal 14-59 [facility] Comment on above: Performed By: #### A MY, CMP, LIPA ####[facility] Chwdlxgdhz04[address] [place] [address]Dr. Tadeo Smyth Anion gap [Moles/Vol] 13.2 mmol/L Normal [facility] Comment on above: Performed By: #### A MY, CMP, LIPA ####[facility] Mtfjodzdcu85[address] [place] [address]Dr. Tadeo Smyth AST [Catalytic activity/Vol] 12 U/L Critically low 15-37 [facility] Comment on above: Performed By: #### A MY, CMP, LIPA ####[facility] Jrxwpaypil88[address] [place] [address]Dr. Tadeo Smyth Bilirubin [Mass/Vol] 0.1 mg/dL Critically low 0.2-1.0 [facility] Comment on above: Performed By: #### A MY, CMP, LIPA ####[facility] Kwjmogntwo[address] [place], [place] [address]Dr. Tadeo Smyth Calcium [Mass/Vol] 9.0 mg/dL Normal 8.5-10.1 [facility] Comment on above: Performed By: #### A MY, CMP, LIPA ####[facility] Cqbggnecbl[address] [place], [place] [address]Dr. Tadeo Smyth Chloride [Moles/Vol] 104 mmol/L Normal 98-107 [facility] Comment on above: Performed By: #### A MY, CMP, LIPA ####[facility] Yufbdphosz[address] [place], [place] [address]Dr. Tadeo Smyth CO2 [Moles/Vol] 26.6 mmol/L Normal 21.0-32.0 [facility] Comment on above: Performed By: #### A MY, CMP, LIPA ####[facility] Vtcfcboucw[address] [place], [place] [address]Dr. Tadeo Smyth Creatinine [Mass/Vol] 0.97 mg/dL Normal 0.55-1.02 [facility] Comment on above: Performed By: #### A MY, CMP, LIPA ####[facility] Hsfxugcjyh17[address] [place] [address]Dr. Tadeo Smyth EGFR-AF FIJIAN >60 Normal >=60 [facility] Comment on above: Performed By: #### A MY, CMP, LIPA ####[facility] Coonfycfpk[address] [place] [address]Dr. Tadeo Smyth EGFR-NON AF FIJIAN 60 mL/min/1.73m2 Normal >=60 [facility] Comment on above: Performed By: #### A MY, CMP, LIPA ####[facility] Uimexxmmcf4[address] [place] [address]Dr. Tadeo Smyth Globulin (S) [Mass/Vol] 3.7 g/dL Normal [facility] Comment on above: Performed By: #### A MY, CMP, LIPA ####[facility] Zinlxnldei67[address] [place] [address]Dr. Tadeo Smyth Glucose [Mass/Vol] 109 mg/dL Critically high 74-106 [facility] Comment on above: Performed By: #### A MY, CMP, LIPA ####[facility] Gkjdksxacr04[address] [place] [address]Dr. Tadeo Smyth Potassium [Moles/Vol] 3.8 mmol/L Normal 3.5-5.1 [facility] Comment on above: Performed By: #### A MY, CMP, LIPA ####[facility] Lpadqpygld[address] [place], [place] [address]Dr. Tadeo Smyth Protein [Mass/Vol] 7.3 g/dL Normal 6.4-8.2 [facility] Comment on above: Performed By: #### A MY, CMP, LIPA ####[facility] Scmjrpmeru[address] [place] [address]Dr. Tadeo Smyth Sodium [Moles/Vol] 140 mmol/L Normal 136-145 [facility] Comment on above: Performed By: #### A MY, CMP, LIPA ####[facility] Qidmhptghc1640 [place] [address]Dr. Tadeo Smyth Urea nitrogen [Mass/Vol] 21.0 mg/dL Critically high 7.0-18.0 [facility] Comment on above: Performed By: #### A MY, CMP, LIPA ####[facility] Vgaedseraz[address] [place] [address]Dr. Tadeo Smyth Urea nitrogen/Creatinine [Mass ratio] 21.6 mg/mg Normal [facility] Comment on above: Performed By: #### A MY, CMP, LIPA ####[facility] Gtqtqgmudm[address] [place] [address]Dr. Tadeo Smyth URINE MICROSCOPIC ONLYon BACTERIA NONE SEEN Normal NONE SEEN [facility] Comment on above: Performed By: #### E RUR, UMICRO ####[facility] Ckbmlaecnd[address] [place], [place] [address]Dr. Tadeo Smyth Bacteria identified Cx Nom (U) NOT INDICATED Normal [facility] Comment on above: Performed By: #### E RUR, UMICRO ####[facility] Cfvaccqslr[address] [place], [place] [address]Dr. Tadeo Smyth CAST NONE SEEN Normal NONE SEEN [facility] Comment on above: Performed By: #### E RUR, UMICRO ####[facility] Rehsgtvnac8[address] [place], [place] [address]Dr. Tadeo Smyth Crystals LM Nom (Urine sed) NONE SEEN Normal NONE SEEN [facility] Comment on above: Performed By: #### E RUR, UMICRO ####[facility] Hbsukvsfot[address] [place], [place] [address]Dr. Tadeo Smyth Epithelial cells LM Ql (Urine sed) FEW Abnormal NONE SEEN /RARE [facility] Comment on above: Performed By: #### E RUR, UMICRO ####[facility] Gtmafrihob[address] [place], [place] [address]Dr. Tadeo Smyth MUCOUS NONE SEEN Normal NONE SEEN [facility] Comment on above: Performed By: #### E RUR, UMICRO ####[facility] Aeminluslz[address] [place], [place] [address]Dr. Tadeo Smyth RBC 0-2 Normal 0-2 [facility] Comment on above: Performed By: #### E RUR, UMICRO ####[facility] Agpfmuovhs036[address] [place], [place] [address]Dr. Tadeo Smyth WBC NONE SEEN Normal NONE SEEN [facility] Comment on above: Performed By: #### E RUR, UMICRO ####[facility] Qowbk[address]jax[address] [place] [id number]. Tadeo Smyth MICRO OTHER TESTSOrdered By: Guillermo Rocha on 04-29-2022 Fecal WBC Lactoferrin Negative (04/29/22 8:00 AM) Normal Negative [facility] Man Sero CULTURE URINEon 03-31-2022 CULTURE URINE Normal [facility] Comment on above: Performed By: #### U RCX ####[facility] Odnggoqebe[address] [place], [place] [address]Dr. Tadeo Smyth CBC AUTO DIFFon 03-30-2022 BASO # 0.0 103/ul Normal 0.0-0.1 [facility] Comment on above: Performed By: #### C BC ####[facility] Wimpndjfsq7[address] [place] [address]Dr. Tadeo Smyth Basophils/100 WBC (Bld) 0.4 % Normal 0.2-2.0 [facility] Comment on above: Performed By: #### C BC ####[facility] Dayqtpbnvj75[address] [place], [place] [address]Dr. Tadeo Smyth EO # 0.3 103/ul Normal 0.0-0.7 [facility] Comment on above: Performed By: #### C BC ####[facility] Dgytjswrly[address] [place], [place] [address]Dr. Tadeo Smyth Eosinophils/100 WBC (Bld) 5.1 % Normal 0.9-7.0 [facility] Comment on above: Performed By: #### C BC ####[facility] Bteqzkhvob[address] [place] [address]Dr. Tadeo Smyth Erythrocyte distribution width (RBC) [Ratio] 12.8 % Normal 11.0-15.0 [facility] Comment on above: Performed By: #### C BC ####[facility] Mayngdyahu[address] [place], [place] [address]Dr. Tadeo Smyth Hematocrit (Bld) [Volume fraction] 36.4 % Normal 36.0-48.0 [facility] Comment on above: Performed By: #### C BC ####[facility] Vjdmvjnlvd2960 [place] [phone]. Tadeo Smyth Hemoglobin (Bld) [Mass/Vol] 12.0 g/dL Normal 12.0-16.0 [facility] Comment on above: Performed By: #### C BC ####[facility] Mvnqldulre01[address] [place] [phone]. Tadeo Smyth IG # 0.02 10e3/ul Normal 0.00-0.03 [facility] Comment on above: Performed By: #### C BC ####[facility] Uedplimmms4208 [place] [phone]. Tadeo Smyth IG % 0.4 % Normal 0.0-0.5 [facility] Comment on above: Performed By: #### C BC ####[facility] Pfeqnthybe4658 [place] [address]Dr. Tadeo Smyth LYMPH # 1.4 103/ul Normal 1.2-3.8 [facility] Comment on above: Performed By: #### C BC ####[facility] Qwrorhxymx2342 [place] [address]Dr. Tadeo Smyth Lymphocytes/100 WBC (Bld) 25.5 % Normal 20.5-60.0 [facility] Comment on above: Performed By: #### C BC ####[facility] Ybrztodxbj90[address] [place] [address]Dr. Tadeo Smyth MANUAL DIFF REQ NO Normal [facility] Comment on above: Performed By: #### C BC ####[facility] Ojkfwmeudg9[address] [place] [phone]. Tadeo Smyth MCH (RBC) [Entitic mass] 29.1 pg Normal 26.7-34.0 [facility] Comment on above: Performed By: #### C BC ####[facility] Xeivbiayen2054 [place] [phone]. Tadeo Smyth MCHC (RBC) [Mass/Vol] 33.0 g/dL Normal 29.9-35.2 [facility] Comment on above: Performed By: #### C BC ####[facility] Nawygvyrct64[address] [place] [phone]. Tadeo Smyth MCV (RBC) [Entitic vol] 88.3 fL Normal 81.0-99.0 [facility] Comment on above: Performed By: #### C BC ####[facility] Godqpjntxg4256 [place] [id number]. Tadeo Smyth MONO # 0.4 103/ul Normal 0.3-0.8 [facility] Comment on above: Performed By: #### C BC ####[facility] Myqynfiacf8351 [place] [address]Dr. Tadeo Haja Monocytes/100 WBC (Bld) 7.1 % Normal 1.7-12.0 [facility] Comment on above: Performed By: #### C BC ####[facility] Qwrlrkmopp[address] [place], [place] [address]Dr. Tadeo Smyth NEUT # 3.4 103/ul Normal 1.4-6.5 [facility] Comment on above: Performed By: #### C BC ####[facility] Tnjkuplunv[address] [place], [place] [address]Dr. Tadeo Smyth Neutrophils/100 WBC (Bld) 61.5 % Normal 43.0-75.0 [facility] Comment on above: Performed By: #### C BC ####[facility] Gmrrjedppn[address] [place], [place] [address]Dr. Tadeo Haja Platelet mean volume (Bld) [Entitic vol] 8.8 fL Critically low 9.5-13.5 [facility] Comment on above: Performed By: #### C BC ####[facility] Yhjsxeevid[address] [place], [place] [address]Dr. Tadeo Haja PLT 324 103/ul Normal 150-450 [facility] Comment on above: Performed By: #### C BC ####[facility] Gh[address]iknttf[address] [place], [place] [id number]. Tadeo Haja RBC 4.12 106/ul Critically low 4.20-5.40 [facility] Comment on above: Performed By: #### C BC ####[facility] Fysgxqapri[address] [place], [place] [address]Dr. Tadeo Smyth WBC 5.5 103/ul Normal 4.0-11.0 [facility] Comment on above: Performed By: #### C BC ####[facility] Ulovkacowf2422 [place] [address]DrNeo Smyth PROF 14(COMP METB)on 022 Albumin [Mass/Vol] 3.1 g/dL Critically low 3.4-5.0 [facility] Comment on above: Performed By: #### C MP ####[facility] Aexlccxxkf9[address] [place] [address]Dr. Tadeo Smyth Albumin/Globulin [Mass ratio] 0.9 {ratio} Normal [facility] Comment on above: Performed By: #### C MP ####[facility] Giqspxyyak022[address] [place], [place] [address]Dr. Tadeo Smyth ALP [Catalytic activity/Vol] 119 U/L Critically high 46-116 [facility] Comment on above: Performed By: #### C MP ####[facility] Oekmacddtk[address] [place], [place] [address]Dr. Tadeo Smyth ALT [Catalytic activity/Vol] 17 U/L Normal 14-59 [facility] Comment on above: Performed By: #### C MP ####[facility] Zmsjkztnvb922[address] [place], [place] [address]Dr. Tadeo Smyth Anion gap [Moles/Vol] 12.0 mmol/L Normal [facility] Comment on above: Performed By: #### C MP ####[facility] Enlyobdham5[address] [place], [place] [address]Dr. Tadeo Smyth AST [Catalytic activity/Vol] 16 U/L Normal 15-37 [facility] Comment on above: Performed By: #### C MP ####[facility] Xqdxhdzxst109[address] [place], [place] [address]Dr. Tadeo Smyth Bilirubin [Mass/Vol] 0.4 mg/dL Normal 0.2-1.0 [facility] Comment on above: Performed By: #### C MP ####[facility] Tkaotsixte0925[address] [place], [place] [address]Dr. Tadeo Smyth Calcium [Mass/Vol] 8.9 mg/dL Normal 8.5-10.1 [facility] Comment on above: Performed By: #### C MP ####[facility] Appkwbechf65[address] [place] [address]Dr. Tadeo Smyth Chloride [Moles/Vol] 107 mmol/L Normal 98-107 [facility] Comment on above: Performed By: #### C MP ####[facility] Ikhiybooxw4218 [place] [address]Dr. Tadeo Smyth CO2 [Moles/Vol] 26.9 mmol/L Normal 21.0-32.0 [facility] Comment on above: Performed By: #### C MP ####[facility] Dbwsonkgrf170[address] [place], [place] [address]Dr. Tadeo Smyth Creatinine [Mass/Vol] 0.82 mg/dL Normal 0.55-1.02 [facility] Comment on above: Performed By: #### C MP ####[facility] Lvfwczdvre[address] [place], [place] [address]Dr. Tadeo Smyth EGFR-AF FIJIAN >60 Normal >=60 [facility] Comment on above: Performed By: #### C MP ####[facility] Jeqqunnfch208[address] [place], [place] [address]Dr. Tadeo Smyth EGFR-NON AF FIJIAN >60 Normal >=60 [facility] Comment on above: Performed By: #### C MP ####[facility] Ctusvnwhig[address] [place], [place] [address]Dr. Tadeo Haja Globulin (S) [Mass/Vol] 3.5 g/dL Normal [facility] Comment on above: Performed By: #### C MP ####[facility] Jwozkofjrr09[address] [place] [address]Dr. Margotnicole Haja Glucose [Mass/Vol] 104 mg/dL Normal 74-106 [facility] Comment on above: Performed By: #### C MP ####[facility] Ppqtdzvnkn68[address] [place], [place] [address]Dr. Margotnicole Haja Potassium [Moles/Vol] 3.9 mmol/L Normal 3.5-5.1 [facility] Comment on above: Performed By: #### C MP ####[facility] Wxuovimlge043[address] [place], [place] [address]Dr. Tadeo Smyth Protein [Mass/Vol] 6.6 g/dL Normal 6.4-8.2 [facility] Comment on above: Performed By: #### C MP ####[facility] Nufgdsfipu834[address] [place], [place] [address]Dr. Tadeo Haja Sodium [Moles/Vol] 142 mmol/L Normal 136-145 [facility] Comment on above: Performed By: #### C MP ####[facility] Fcjcywlhwn[address] [place], [place] [address]Dr. Tadeo Haja Urea nitrogen [Mass/Vol] 5.0 mg/dL Critically low 7.0-18.0 [facility] Comment on above: Performed By: #### C MP ####[facility] Jklcppttzw1326[address] [place], [place] [address]Dr. Tadeo Haja Urea nitrogen/Creatinine [Mass ratio] 6.1 mg/mg Normal [facility] Comment on above: Performed By: #### C MP ####[facility] Ugknygfnlf549[address] [place], [place] [address]Dr. Tadeo Haja CBC AUTO DIFFon 03-29-2022 BASO # 0.0 103/ul Normal 0.0-0.1 [facility] Comment on above: Performed By: #### C BC ####[facility] Tjtqttbykl[address] [place], [place] [address]Dr. Tadeo Smyth Basophils/100 WBC (Bld) 0.4 % Normal 0.2-2.0 [facility] Comment on above: Performed By: #### C BC ####[facility] Dsaygdfrxc694[address] [place], [place] [address]Dr. Tadeo Smyth EO # 0.2 103/ul Normal 0.0-0.7 [facility] Comment on above: Performed By: #### C BC ####[facility] Xagkiwtcjw394[address] [place], [place] [address]Dr. Tadeo Smyth Eosinophils/100 WBC (Bld) 4.3 % Normal 0.9-7.0 [facility] Comment on above: Performed By: #### C BC ####[facility] Wmiyzcqyea[address] [place], [place] [address]Dr. Tadeo Smyth Erythrocyte distribution width (RBC) [Ratio] 12.9 % Normal 11.0-15.0 [facility] Comment on above: Performed By: #### C BC ####[facility] Tcsazsvwmd[address] [place], [place] [address]DrNeo Smyth Hematocrit (Bld) [Volume fraction] 33.8 % Critically low 36.0-48.0 [facility] Comment on above: Performed By: #### C BC ####[facility] Ibghbbqgwt[address] [place], [place] [address]DrNeo Smyth Hemoglobin (Bld) [Mass/Vol] 11.1 g/dL Critically low 12.0-16.0 [facility] Comment on above: Performed By: #### C BC ####[facility] Sffmlemftk[address] [place], [place] [address]Dr. Tadeo Smyth IG # 0.01 10e3/ul Normal 0.00-0.03 [facility] Comment on above: Performed By: #### C BC ####[facility] Eeassakkor74[address] [place], [place] [address]DrNeo Smyth IG % 0.2 % Normal 0.0-0.5 [facility] Comment on above: Performed By: #### C BC ####[facility] Lgcajeazpb97[address] [place], [place] [address]DrNeo Smyth LYMPH # 1.5 103/ul Normal 1.2-3.8 [facility] Comment on above: Performed By: #### C BC ####[facility] Ifhtsywcbm020[address] [place], [place] [address]DrNeo Smyth Lymphocytes/100 WBC (Bld) 29.9 % Normal 20.5-60.0 [facility] Comment on above: Performed By: #### C BC ####[facility] Qcukawykdg[address] [place], [place] [address]DrNeo Smyth MANUAL DIFF REQ NO Normal [facility] Comment on above: Performed By: #### C BC ####[facility] Ikilfmmatm264[address] [place] [address]Dr. Tadeo Smyth MCH (RBC) [Entitic mass] 29.3 pg Normal 26.7-34.0 [facility] Comment on above: Performed By: #### C BC ####[facility] Ybltdngfpe1875 [place] [address]Dr. Tadeo Smyth MCHC (RBC) [Mass/Vol] 32.8 g/dL Normal 29.9-35.2 [facility] Comment on above: Performed By: #### C BC ####[facility] Wgchxrrwsk[address] [place], [place] [address]DrNeo Smyth MCV (RBC) [Entitic vol] 89.2 fL Normal 81.0-99.0 [facility] Comment on above: Performed By: #### C BC ####[facility] Pkfgtrpklx[address] [place], [place] [address]DrNeo Smyth MONO # 0.4 103/ul Normal 0.3-0.8 [facility] Comment on above: Performed By: #### C BC ####[facility] Jsifuwttjb[address] [place], [place] [address]DrNeo Smyth Monocytes/100 WBC (Bld) 7.8 % Normal 1.7-12.0 [facility] Comment on above: Performed By: #### C BC ####[facility] Cgrrdkykny[address] [place], [place] [address]DrNeo Smyth NEUT # 2.8 103/ul Normal 1.4-6.5 [facility] Comment on above: Performed By: #### C BC ####[facility] Zvvzgcxfra[address] [place], [place] [address]DrNeo Smyth Neutrophils/100 WBC (Bld) 57.4 % Normal 43.0-75.0 [facility] Comment on above: Performed By: #### C BC ####[facility] Lcmzgmpzuj[address] [place], [place] [address]DrNeo Smyth Platelet mean volume (Bld) [Entitic vol] 8.9 fL Critically low 9.5-13.5 [facility] Comment on above: Performed By: #### C BC ####[facility] Y[address]rbkrnvi24[address] [place] [address]Dr. Tadeo Smyth PLT 314 103/ul Normal 150-450 [facility] [facility] Comment on above: Performed By: #### C BC ####[facility] [address]petz[address] [place] [address]Dr. Tadeo Smyth RBC 3.79 106/ul Critically low 4.20-5.40 [facility] Comment on above: Performed By: #### C BC ####[facility] Dlpqssoftr[address] [place] [address]Dr. Tadeo Smyth WBC 4.9 103/ul Normal 4.0-11.0 [facility] Comment on above: Performed By: #### C BC ####[facility] Daenmvhlyu[address] [place], [place] [address]DrNeo Smyth PROF 14(COMP METB)on 022 Albumin [Mass/Vol] 2.8 g/dL Critically low 3.4-5.0 [facility] Comment on above: Performed By: #### C MP ####[facility] Ioacdrgwzy[address] [place], [place] [address]Dr. Tadeo Smyth Albumin/Globulin [Mass ratio] 0.8 {ratio} Normal [facility] Comment on above: Performed By: #### C MP ####[facility] Egpyfaegkp[address] [place], [place] [address]Dr. Tadeo Smyth ALP [Catalytic activity/Vol] 117 U/L Critically high 46-116 [facility] Comment on above: Performed By: #### C MP ####[facility] Zeaxseksiu135[address] [place], [place] [address]DrNeo Smyth ALT [Catalytic activity/Vol] 13 U/L Critically low 14-59 [facility] Comment on above: Performed By: #### C MP ####[facility] Hwlwtdsvwr[address] [place], [place] [address]DrNeo Smyth Anion gap [Moles/Vol] 8.7 mmol/L Normal [facility] Comment on above: Performed By: #### C MP ####[facility] Ogwjcwnlby[address] [place], [place] [address]Dr. Tadeo Smyth AST [Catalytic activity/Vol] 12 U/L Critically low 15-37 [facility] Comment on above: Performed By: #### C MP ####[facility] Spwttgdadj11[address] [place], [place] [address]Dr. Tadeo Haja Bilirubin [Mass/Vol] 0.4 mg/dL Normal 0.2-1.0 [facility] Comment on above: Performed By: #### C MP ####[facility] Womeehidzi[address] [place], [place] [address]Dr. Tadeo Smyth Calcium [Mass/Vol] 8.5 mg/dL Normal 8.5-10.1 [facility] Comment on above: Performed By: #### C MP ####[facility] Onutqnzihe7638[address] [place], [place] [address]Dr. Tadeo Smyth Chloride [Moles/Vol] 108 mmol/L Critically high 98-107 [facility] Comment on above: Performed By: #### C MP ####[facility] Iwhwsdbdmy136[address] [place], [place] [address]Dr. Tadeo Haja CO2 [Moles/Vol] 28.0 mmol/L Normal 21.0-32.0 [facility] Comment on above: Performed By: #### C MP ####[facility] Ubudvwvjal[address] [place], [place] [address]Dr. Tadeo Smyth Creatinine [Mass/Vol] 0.74 mg/dL Normal 0.55-1.02 [facility] Comment on above: Performed By: #### C MP ####[facility] Qnrvkkphfa289[address] [place], [place] [address]Dr. Tadeo Smyth EGFR-AF FIJIAN >60 Normal >=60 [facility] Comment on above: Performed By: #### C MP ####[facility] Mlrfcpbcbm54[address] [place], [place] [address]Dr. Tadeo Smyth EGFR-NON AF FIJIAN >60 Normal >=60 [facility] Comment on above: Performed By: #### C MP ####[facility] Gratposilk[address] [place] [address]Dr. Tadeo Smyth Globulin (S) [Mass/Vol] 3.4 g/dL Normal [facility] Comment on above: Performed By: #### C MP ####[facility] Kpkcctkgsn7[address] [place] [address]Dr. Tadeo Haja Glucose [Mass/Vol] 107 mg/dL Critically high 74-106 [facility] Comment on above: Performed By: #### C MP ####[facility] Zqkaaqmfsz2[address] [place] [address]Dr. Tadeo Haja Potassium [Moles/Vol] 3.7 mmol/L Normal 3.5-5.1 [facility] Comment on above: Performed By: #### C MP ####[facility] Phmxipndmr87[address] [place] [address]Dr. Tadeo Haja Protein [Mass/Vol] 6.2 g/dL Critically low 6.4-8.2 [facility] Comment on above: Performed By: #### C MP ####[facility] Efknbavitn64[address] [place], [place] [address]Dr. Tadeo Haja Sodium [Moles/Vol] 141 mmol/L Normal 136-145 [facility] Comment on above: Performed By: #### C MP ####[facility] Lanbaibvxk2284 [place] [address]Dr. Tadeo Haja Urea nitrogen [Mass/Vol] 7.0 mg/dL Normal 7.0-18.0 [facility] Comment on above: Performed By: #### C MP ####[facility] Aayshhrwhe26[address] [place] [address]Dr. Tadeo Haja Urea nitrogen/Creatinine [Mass ratio] 9.5 mg/mg Normal [facility] Comment on above: Performed By: #### C MP ####[facility] Ikbwgpfaqo9234 [place] [address]Dr. Margotnicole Haja XR KUB 1 VIEWon 03-29-2022 XR KUB 1 VIEW Normal [facility] CBC AUTO DIFFon 03-28-2022 BASO # 0.0 103/ul Normal 0.0-0.1 [facility] Comment on above: Performed By: #### C BC ####[facility] Sbqheodzfd[address] [place], [place] [address]Dr. Tadeo Smyth Basophils/100 WBC (Bld) 0.7 % Normal 0.2-2.0 [facility] Comment on above: Performed By: #### C BC ####[facility] Zbjoxhqljh230[address] [place], [place] [address]Dr. Tadeo Smyth EO # 0.2 103/ul Normal 0.0-0.7 [facility] Comment on above: Performed By: #### C BC ####[facility] Ghtdnnpewq137[address] [place], [place] [address]Dr. Tadeo Smyth Eosinophils/100 WBC (Bld) 3.3 % Normal 0.9-7.0 [facility] Comment on above: Performed By: #### C BC ####[facility] Zvqjiqxigj49[address] [place], [place] [address]Dr. Tadeo Smyth Erythrocyte distribution width (RBC) [Ratio] 13.2 % Normal 11.0-15.0 [facility] Comment on above: Performed By: #### C BC ####[facility] Svmykldxyt31[address] [place], [place] [address]Dr. Tadeo Smyth Hematocrit (Bld) [Volume fraction] 34.2 % Critically low 36.0-48.0 [facility] Comment on above: Performed By: #### C BC ####[facility] Kdfqvanloq230[address] [place], [place] [address]Dr. Margotnicole Smyth Hemoglobin (Bld) [Mass/Vol] 10.8 g/dL Critically low 12.0-16.0 [facility] Comment on above: Performed By: #### C BC ####[facility] Nwichfhmha25[address] [place], [place] [address]Dr. Tadeo Smyth IG # 0.01 10e3/ul Normal 0.00-0.03 [facility] Comment on above: Performed By: #### C BC ####[facility] Joxywdgfxq7[address] [place] [address]Dr. Tadeo Smyth IG % 0.2 % Normal 0.0-0.5 [facility] Comment on above: Performed By: #### C BC ####[facility] Eimdcvfvsg8[address] [place] [address]Dr. Tadeo Smyth LYMPH # 1.3 103/ul Normal 1.2-3.8 [facility] Comment on above: Performed By: #### C BC ####[facility] Ddrbqdapwg4020[address] [place], [place] [address]Dr. Tadeo Smyth Lymphocytes/100 WBC (Bld) 28.4 % Normal 20.5-60.0 [facility] Comment on above: Performed By: #### C BC ####[facility] Egttmiubjt76[address] [place] [address]Dr. Tadeo Smyth MANUAL DIFF REQ NO Normal [facility] Comment on above: Performed By: #### C BC ####[facility] Pnzzpocuaz[address] [place] [address]Dr. Tadeo Haja MCH (RBC) [Entitic mass] 28.3 pg Normal 26.7-34.0 [facility] Comment on above: Performed By: #### C BC ####[facility] Rnuccwuvny5027[address] [place], [place] [address]Dr. Tadeo Haja MCHC (RBC) [Mass/Vol] 31.6 g/dL Normal 29.9-35.2 [facility] Comment on above: Performed By: #### C BC ####[facility] Cllqhathsj[address] [place], [place] [address]Dr. Tadeo Smyth MCV (RBC) [Entitic vol] 89.5 fL Normal 81.0-99.0 [facility] Comment on above: Performed By: #### C BC ####[facility] Neoztcoisc[address] [place], [place] [address]Dr. Tadeo Smyth MONO # 0.3 103/ul Normal 0.3-0.8 [facility] Comment on above: Performed By: #### C BC ####[facility] Rhbuhzxezv[address] [place], [place] [address]Dr. Tadeo Smyth Monocytes/100 WBC (Bld) 5.5 % Normal 1.7-12.0 [facility] Comment on above: Performed By: #### C BC ####[facility] Mbsztxxwaf8[address] [place] [address]Dr. Tadeo Smyth NEUT # 2.8 103/ul Normal 1.4-6.5 [facility] Comment on above: Performed By: #### C BC ####[facility] Lctlsnxnsy87[address] [place] [address]Dr. Tadeo Smyth Neutrophils/100 WBC (Bld) 61.9 % Normal 43.0-75.0 [facility] Comment on above: Performed By: #### C BC ####[facility] Jxdaesnarn4[address] [place] [address]Dr. Tadeo Smyth Platelet mean volume (Bld) [Entitic vol] 9.1 fL Critically low 9.5-13.5 [facility] Comment on above: Performed By: #### C BC ####[facility] Fyjqcdpbnq9[address] [place] [address]Dr. Tadeo Smyth PLT 327 103/ul Normal 150-450 [facility] Comment on above: Performed By: #### C BC ####[facility] Twdpvypkal[address] [place], [place] [address]Dr. Tadeo Smyth RBC 3.82 106/ul Critically low 4.20-5.40 [facility] Comment on above: Performed By: #### C BC ####[facility] Tcmefhaxdk148[address] [place], [place] [address]Dr. Tadeo Smyth WBC 4.5 103/ul Normal 4.0-11.0 [facility] Comment on above: Performed By: #### C BC ####[facility] Etdhodosal1605[address] [place], [place] [address]Dr. Tadeo Smyth POINT OF CARE GLUCOSEon 07- Glucose [Mass/Vol] 84 mg/dL Normal 74-106 [facility] Comment on above: Performed By: #### P OCGLUC ####[facility] Gmsjmdxbdq48[address] [place], [place] [address]Dr. Tadeo Smyth PROF 14(COMP METB)on 022 Albumin [Mass/Vol] 2.9 g/dL Critically low 3.4-5.0 [facility] Comment on above: Performed By: #### C MP ####[facility] Lelbbognhs[address] [place] [address]Dr. Tadeo Smyth Albumin/Globulin [Mass ratio] 0.9 {ratio} Normal [facility] Comment on above: Performed By: #### C MP ####[facility] Xoycenjlwx9[address] [place] [address]Dr. Tadeo Smyth ALP [Catalytic activity/Vol] 119 U/L Critically high 46-116 [facility] Comment on above: Performed By: #### C MP ####[facility] Ymxeksqfkh101[address] [place], [place] [address]Dr. Tadeo Smyth ALT [Catalytic activity/Vol] 15 U/L Normal 14-59 [facility] Comment on above: Performed By: #### C MP ####[facility] Geeyedutat[address] [place], [place] [address]Dr. Tadeo Smyth Anion gap [Moles/Vol] 7.9 mmol/L Normal [facility] Comment on above: Performed By: #### C MP ####[facility] Tzvnghwcow104[address] [place], [place] [address]Dr. Tadeo Smyth AST [Catalytic activity/Vol] 11 U/L Critically low 15-37 [facility] Comment on above: Performed By: #### C MP ####[facility] Runczkwuvx8500[address] [place], [place] [address]Dr. Tadeo Smyth Bilirubin [Mass/Vol] 0.4 mg/dL Normal 0.2-1.0 [facility] Comment on above: Performed By: #### C MP ####[facility] Pvsfdqetfv[address] [place], [place] [address]Dr. Tadeo Smyth Calcium [Mass/Vol] 8.7 mg/dL Normal 8.5-10.1 [facility] Comment on above: Performed By: #### C MP ####[facility] Ygxhwfdrqk9[address] [place] [address]Dr. Tadeo Smyth Chloride [Moles/Vol] 109 mmol/L Critically high 98-107 [facility] Comment on above: Performed By: #### C MP ####[facility] Stmtyqjbge33[address] [place] [address]Dr. Tadeo Smyth CO2 [Moles/Vol] 27.9 mmol/L Normal 21.0-32.0 [facility] Comment on above: Performed By: #### C MP ####[facility] Vnkyylhbrs6264[address] [place], [place] [address]Dr. Tadeo Smyth Creatinine [Mass/Vol] 0.75 mg/dL Normal 0.55-1.02 [facility] Comment on above: Performed By: #### C MP ####[facility] Fvpbuxeyle8625[address] [place], [place] [address]Dr. Tadeo Smyth EGFR-AF FIJIAN >60 Normal >=60 [facility] Comment on above: Performed By: #### C MP ####[facility] Tcibelhjnr387[address] [place], [place] [address]Dr. Tadeo Smyth EGFR-NON AF FIJIAN >60 Normal >=60 [facility] Comment on above: Performed By: #### C MP ####[facility] Stjvyyaoqh[address] [place], [place] [address]Dr. Tadeo Smyth Globulin (S) [Mass/Vol] 3.3 g/dL Normal [facility] Comment on above: Performed By: #### C MP ####[facility] Gymdaxptlg557[address] [place], [place] [address]Dr. Tadeo Smyth Glucose [Mass/Vol] 95 mg/dL Normal 74-106 [facility] Comment on above: Performed By: #### C MP ####[facility] Vycpvlyyok[address] [place], [place] [address]Dr. Tadeo Smyth Potassium [Moles/Vol] 3.8 mmol/L Normal 3.5-5.1 [facility] Comment on above: Performed By: #### C MP ####[facility] Hymbhqhyyn9[address] [place], [place] [address]Dr. Tadeo Haja Protein [Mass/Vol] 6.2 g/dL Critically low 6.4-8.2 [facility] Comment on above: Performed By: #### C MP ####[facility] Lxwqwqnoqe87[address] [place] [address]Dr. Tadeo Smyth Sodium [Moles/Vol] 141 mmol/L Normal 136-145 [facility] Comment on above: Performed By: #### C MP ####[facility] Ildtudzpau45[address] [place] [address]Dr. Tadeo Smyth Urea nitrogen [Mass/Vol] 8.0 mg/dL Normal 7.0-18.0 [facility] Comment on above: Performed By: #### C MP ####[facility] Ophhiawrfq[address] [place], [place] [address]Dr. Tadeo Smyth Urea nitrogen/Creatinine [Mass ratio] 10.7 mg/mg Normal [facility] Comment on above: Performed By: #### C MP ####[facility] Eznusnhpwl068[address] [place], [place] [address]Dr. Tadeo Smyth UA (CLEAN/CATCH) SUP[employer]Y AND DISTRIBUTION MANAGER/MICRO I F IND.on 03-28-2022 Bilirubin Ql (U) Negative Normal NEGATIVE [facility] Comment on above: Performed By: #### U MARE CHINEDURO ####[facility] Nijtlzndtc5764[address] [place], [place] [address]Dr. Tadeo Smyth Clarity (U) SL CLOUDY Abnormal CLEAR [facility] Comment on above: Performed By: #### U MARE CHINEDURO ####[facility] Eqqbhqzhce9[address] [place], [place] [address]Dr. Tadeo Smyth Color (U) LT. YELLOW Normal YELLOW [facility] Comment on above: Performed By: #### U MARE ICRO ####[facility] Wlxaskkkft8565[address] [place], [place] [address]Dr. Tadeo Smyth Glucose Ql (U) Negative Normal NEGATIVE [facility] Comment on above: Performed By: #### U MARE UMICRO ####[facility] Zchfrwcrbl50[address] [place], [place] [address]Dr. Tadeo Smyth Hemoglobin Ql (U) TRACE-INTACT Abnormal NEGATIVE [facility] Comment on above: Performed By: #### U ACSIND, UMICRO ####[facility] Garqahxuxx87[address] [place] [address]Dr. Tadeo Smyth Ketones Ql (U) TRACE Abnormal NEGATIVE [facility] Comment on above: Performed By: #### U ACSBLANE, UMICRO ####[facility] Rtmeujrpyw5[address] [place] [address]Dr. Tadeo Smyth LEUKOCYTES Negative Normal NEGATIVE [facility] Comment on above: Performed By: #### U ACSBLANE, UMICRO ####[facility] Kxxkgosmoe3904 [place] [address]Dr. Tadeo Smyth Nitrite Ql (U) Negative Normal NEGATIVE [facility] Comment on above: Performed By: #### U ACSBLANE, ICRO ####[facility] Unkhrcldtg786[address] [place], [place] [address]Dr. Tadeo Smyth pH (U) 6.5 [pH] Normal 5-9 [facility] Comment on above: Performed By: #### U ACSBLANE, ICRO ####[facility] Scufajfype836[address] [place], [place] [address]Dr. Tadeo Smyth SPEC GRAVITY 1.015 Normal 1.005-<=1.0 25 [facility] Comment on above: Performed By: #### U ACSBLANE, ICRO ####[facility] Bknnbikwor09[address] [place], [place] [address]Dr. Tadeo Smyth UA PROTEIN Negative Normal NEGATIVE/ TRACE [facility] Comment on above: Performed By: #### U ACSBLANE, UMICRO ####[facility] Xlrijxtbpj430[address] [place], [place] [address]Dr. Tadeo Smyth UR MICRO IND INDICATED Normal [facility] Comment on above: Performed By: #### U ACSBLANE, ICRO ####[facility] Zjcuggggwq592[address] [place], [place] [address]Dr. Tadeo Smyth Urobilinogen Qn (U) 0.2 {Benito'U}/dL Normal 0.2 - 1. 0 [facility] Comment on above: Performed By: #### U ACSBLANE UMICRO ####[facility] Pvtltgkebu74[address] [place] [address]Dr. Tadeo Smyth URINE MICROSCOPIC ONLYon BACTERIA MODERATE Abnormal NONE SEEN [facility] Comment on above: Performed By: #### U ACSBLANE UMICRO ####[facility] Tocjbszkva[address] [place] [address]Dr. Tadeo Smyth Bacteria identified Cx Nom (U) INDICATED Normal [facility] Comment on above: Performed By: #### U ACSBLANE, UMICRO ####[facility] Mnipaftbqo47[address] [place] [address]Dr. Tadeo Smyth CAST NONE SEEN Normal NONE SEEN [facility] Comment on above: Performed By: #### U ACSBLANE UMICRO ####[facility] Slcdyppsvu12[address] [place] [address]Dr. Tadeo Smyth Crystals LM Nom (Urine sed) NONE SEEN Normal NONE SEEN [facility] Comment on above: Performed By: #### U MARE UMICRO ####[facility] Rniugrmkkp[address] [place], [place] [address]Dr. Tadeo Smyth Epithelial cells LM Ql (Urine sed) RARE Normal NONE SEEN /RARE [facility] Comment on above: Performed By: #### U ACSBLANE UMICRO ####[facility] Gepkfragfu[address] [place] [address]Dr. Tadeo Smyth MUCOUS NONE SEEN Normal NONE SEEN [facility] Comment on above: Performed By: #### U MARE UMICRO ####[facility] Tgfripcrle[address] [place] [address]Dr. Tadeo Smyth RBC NONE SEEN Abnormal 0-2 [facility] Comment on above: Performed By: #### U ACSBLANE UMICRO ####[facility] Qtxbkmkxld9[address] [place], [place] [address]Dr. Tadeo Smyth WBC 2-5 Abnormal NONE SEEN [facility] Comment on above: Performed By: #### U ACSBLANE UMICRO ####[facility] Tjiltxoxhx80[address] [place], [place] [address]Dr. Tadeo Smyth XR ABD FLAT UP_PA Kasey 03-28 XR ABD FLAT UP_PA CH Normal [facility] CBC AUTO DIFFon 03-27-2022 BASO # 0.0 103/ul Normal 0.0-0.1 [facility] Comment on above: Performed By: #### C BC ####[facility] Onujlvxffs4[address] [place] [id number]. Margotnicole Smyth Basophils/100 WBC (Bld) 0.5 % Normal 0.2-2.0 [facility] Comment on above: Performed By: #### C BC ####[facility] Ahrjdxfnlz10[address] [place] [address]Dr. Margotnicole Smyth EO # 0.2 103/ul Normal 0.0-0.7 [facility] Comment on above: Performed By: #### C BC ####[facility] Duougpmqiw438[address] [place], [place] [address]Dr. Margotnicole Smyth Eosinophils/100 WBC (Bld) 3.2 % Normal 0.9-7.0 [facility] Comment on above: Performed By: #### C BC ####[facility] Vfgdrvtsjv89[address] [place], [place] [address]Dr. Tadeo Haja Erythrocyte distribution width (RBC) [Ratio] 13.1 % Normal 11.0-15.0 [facility] Comment on above: Performed By: #### C BC ####[facility] [address] [place], [place] [address]Dr. Tadeo Haja Hematocrit (Bld) [Volume fraction] 34.8 % Critically low 36.0-48.0 [facility] Comment on above: Performed By: #### C BC ####[facility] Tcfzzlsill[address] [place] [id number] Margotnicole Smyth Hemoglobin (Bld) [Mass/Vol] 11.3 g/dL Critically low 12.0-16.0 [facility] Comment on above: Performed By: #### C BC ####[facility] Wfjaigdvck[address] [place], [place] [address]Dr. Tadeo Smyth IG # 0.01 10e3/ul Normal 0.00-0.03 [facility] Comment on above: Performed By: #### C BC ####[facility] Fnlkopcrss4[address] [place] [address]Dr. Margotnicole Smyth IG % 0.2 % Normal 0.0-0.5 [facility] Comment on above: Performed By: #### C BC ####[facility] Rquafbwatn9[address] [place], [place] [address]Dr. Margotnicole Smyth LYMPH # 1.6 103/ul Normal 1.2-3.8 [facility] Comment on above: Performed By: #### C BC ####[facility] Avootydqtw97[address] [place], [place] [address]Dr. Margotnicole Smyth Lymphocytes/100 WBC (Bld) 29.1 % Normal 20.5-60.0 [facility] Comment on above: Performed By: #### C BC ####[facility] Xkozccysie20[address] [place], [place] [address]Dr. Tadeo Smyth MANUAL DIFF REQ NO Normal [facility] Comment on above: Performed By: #### C BC ####[facility] Fhvmnkznnc[address] [place], [place] [address]Dr. Margotnicole Smyth MCH (RBC) [Entitic mass] 29.1 pg Normal 26.7-34.0 [facility] Comment on above: Performed By: #### C BC ####[facility] Ayytghvmus[address] [place], [place] [address]Dr. Margotnicole Smyth MCHC (RBC) [Mass/Vol] 32.5 g/dL Normal 29.9-35.2 [facility] Comment on above: Performed By: #### C BC ####[facility] Lumtvbgnix86[address] [place], [place] [address]DrNeo Margotnicole Smyth MCV (RBC) [Entitic vol] 89.7 fL Normal 81.0-99.0 [facility] Comment on above: Performed By: #### C BC ####[facility] Ubiykofjrm[address] [place], [place] [address]DrNeo Smyth MONO # 0.3 103/ul Normal 0.3-0.8 [facility] Comment on above: Performed By: #### C BC ####[facility] Cpzmfzwitv01[address] [place] [id number]. Tadeo Smyth Monocytes/100 WBC (Bld) 5.7 % Normal 1.7-12.0 [facility] Comment on above: Performed By: #### C BC ####[facility] Fttmqoaxtm2143 [place] [id number]. Tadeo Smyth NEUT # 3.5 103/ul Normal 1.4-6.5 [facility] Comment on above: Performed By: #### C BC ####[facility] Laawxeoend4714 [place] [id number]. Tadeo Smyth Neutrophils/100 WBC (Bld) 61.3 % Normal 43.0-75.0 [facility] Comment on above: Performed By: #### C BC ####[facility] Qprrxyazau04[address] [place] [phone]. Tadeo Smyth Platelet mean volume (Bld) [Entitic vol] 9.1 fL Critically low 9.5-13.5 [facility] Comment on above: Performed By: #### C BC ####[facility] Xwgyzfnxlb34[address] [place] [id number]. Tadeo Smyth PLT 355 103/ul Normal 150-450 [facility] Comment on above: Performed By: #### C BC ####[facility] Vxdagldzgl0748 [place] [id number]. Tadeo Smyth RBC 3.88 106/ul Critically low 4.20-5.40 [facility] [facility] Comment on above: Performed By: #### C BC ####[facility] [address] [place] [id number]. Tadeo Smyth WBC 5.6 103/ul Normal 4.0-11.0 [facility] Comment on above: Performed By: #### C BC ####[facility] Fsznkkqodo[address] [place] [id number]. Tadeo Smyth CT ABD/PELV W CONon 03-27-[address] ABD/PELV W CON Normal [facility] CT ABD/PELVIS WO CONon 03-27 CT ABD/PELVIS WO CON Normal [facility] Covid-19 PCR (CVDTB)on 03-06 SARS-CoV-2 (COVID-19) RNA CHEN+probe Ql (Unsp spec) Not detected Normal NOT DETECTED [facility] Comment on above: Result Comment: When [...] for this test is supported by the [place] of Health and Human Service's declaration [...] be used). Performed By: #### C VDTBH ####[facility] Iptgeurknd[address] [place], [place] [address]Dr. Tadeo Smyth ER URINE PROFILEon Bilirubin Ql (U) Negative Normal NEGATIVE [facility] Comment on above: Performed By: #### E SARAH BETHR, PREGU ####[facility] Melnjbnygm[address] [place], [place] [address]Dr. Tadeo Smyth Clarity (U) CLEAR Normal CLEAR [facility] Comment on above: Performed By: #### E RUR, PREGU ####[facility] Nmrdtlpmwg[address] [place], [place] [address]DrNeo Smyth Color (U) LT. YELLOW Normal YELLOW [facility] Comment on above: Performed By: #### E RUR, PREGU ####[facility] Lcfllqerru[address] [place], [place] [address]Dr. Tadeo Smyth ERUAHD A micrscopic examina tion will be performed if indicated. Normal [facility] Comment on above: Performed By: #### E RUR, PREGU ####[facility] Oeimffeboe[address] [place], [place] [address]Dr. Tadeo Smyth Glucose Ql (U) Negative Normal NEGATIVE [facility] Comment on above: Performed By: #### E RUR, PREGU ####[facility] Uejeoedway[address] [place], [place] [address]Dr. Tadeo Smyth Hemoglobin Ql (U) SMALL Abnormal NEGATIVE [facility] Comment on above: Performed By: #### E RUR, PREGU ####[facility] Wzahqxyxkb[address] [place], [place] [address]Dr. Tadeo Smyth Ketones Ql (U) TRACE Abnormal NEGATIVE [facility] Comment on above: Performed By: #### E RUR, PREGU ####[facility] Dixmopbrly[address] [place], [place] [address]Dr. Tadeo Smyth LEUKOCYTES Negative Normal NEGATIVE [facility] Comment on above: Performed By: #### Matthew RUR, PREGU ####[facility] Kuiakzhcmt[address] [place], [place] [address]Dr. Tadeo Smyth Nitrite Ql (U) Negative Normal NEGATIVE [facility] Comment on above: Performed By: #### Matthew RUR, PREGU ####[facility] Uctxodxjge[address] [place], [place] [address]Dr. Tadeo Smyth pH (U) 6.0 [pH] Normal 5-9 [facility] Comment on above: Performed By: #### Matthew RUR, PREGU ####[facility] Ldlgieqboo[address] [place], [place] [address]Dr. Tadeo Smyth SPEC GRAVITY >=1.030 Abnormal 1.005-<=1.0 25 [facility] Comment on above: Performed By: #### E RUR, PREGU ####[facility] Iwqncrfgk[address] [place], [place] [address]Dr. Margotnicole Smyth UA PROTEIN Negative Normal NEGATIVE/ TRACE [facility] Comment on above: Performed By: #### Matthew RUR, PREGU ####[facility] Gpgleorosm[address] [place], [place] [address]Dr. Tadeo Smyth UR MICRO IND NOT INDICATED Normal [facility] Comment on above: Performed By: #### E RUR, PREGU ####[facility] [address] [place] [address]Dr. Tadeo Smyth Urobilinogen Qn (U) 0.2 {Benito'U}/dL Normal 0.2 - 1. 0 [facility] Comment on above: Performed By: #### E RUR, PREGU ####[facility] [address] [place] [address]Dr. Tadeo Smyth LIPASEon 03-27-2022 Lipase [Catalytic activity/Vol] 126.0 U/L Normal 73.0-393.0 [facility] Comment on above: Performed By: #### L IPA, CMP ####[facility] Xczwuymeig[address] [place], [place] [address]Dr. Tadeo Smyth URon 03-27-2022 , QUAL Negative Normal NEGATIVE [facility] Comment on above: Performed By: #### E RUR, PREGU ####[facility] Illvildxhr[address] [place], [place] [address]Dr. Tadeo Smyth PROF 14(COMP METB)on 022 Albumin [Mass/Vol] 3.6 g/dL Normal 3.4-5.0 [facility] Comment on above: Performed By: #### L IPA, CMP ####[facility] Jvqkxuiidt[address] [place], [place] [address]Dr. Tadeo Smyth Albumin/Globulin [Mass ratio] 1.1 {ratio} Normal [facility] Comment on above: Performed By: #### L IPA, CMP ####[facility] [address] [place] [address]Dr. Tadeo Smyth ALP [Catalytic activity/Vol] 139 U/L Critically high 46-116 [facility] Comment on above: Performed By: #### L IPA, CMP ####[facility] V[address] [place] [address]Dr. Tadeo Smyth ALT [Catalytic activity/Vol] 18 U/L Normal 14-59 [facility] Comment on above: Performed By: #### L IPA, CMP ####[facility] I[address]iddmf[address] [place] [address]Dr. Tadeo Smyth Anion gap [Moles/Vol] 10.7 mmol/L Normal [facility] Comment on above: Performed By: #### L IPA, CMP ####[facility] Xidptupoar[address] [place] [address]Dr. Tadeo Smyth AST [Catalytic activity/Vol] 11 U/L Critically low 15-37 [facility] Comment on above: Performed By: #### L IPA, CMP ####[facility] Gkdspbsjvi[address] [place], [place] [address]Dr. Tadeo Smyth Bilirubin [Mass/Vol] 0.2 mg/dL Normal 0.2-1.0 [facility] Comment on above: Performed By: #### L IPA, CMP ####[facility] Okxywqdrti[address] [place], [place] [address]Dr. Tadeo Smyth Calcium [Mass/Vol] 9.0 mg/dL Normal 8.5-10.1 [facility] Comment on above: Performed By: #### L IPA, CMP ####[facility] [address]ny[address]nc[address] [place], [place] [address]Dr. Tadeo Haja Chloride [Moles/Vol] 106 mmol/L Normal 98-107 [facility] Comment on above: Performed By: #### L IPA, CMP ####[facility] Ymmenczkky[address] [place], [place] [address]Dr. Tadeo Smyth CO2 [Moles/Vol] 26.9 mmol/L Normal 21.0-32.0 [facility] Comment on above: Performed By: #### L IPA, CMP ####[facility] Ildexrabvz[address] [place], [place] [address]Dr. Tadeo Smyth Creatinine [Mass/Vol] 0.84 mg/dL Normal 0.55-1.02 [facility] Comment on above: Performed By: #### L IPA, CMP ####[facility] Prifwuqyuv[address] [place], [place] [address]Dr. Tadeo Haja EGFR-AF FIJIAN >60 Normal >=60 [facility] Comment on above: Performed By: #### L IPA, CMP ####[facility] [address] [place] [id number]. Tadeo Smyth EGFR-NON AF FIJIAN >60 Normal >=60 [facility] Comment on above: Performed By: #### L IPA, CMP ####[facility] Ixb[address]fvdmw20[address] [place] [id number]. Tadeo Haja Globulin (S) [Mass/Vol] 3.4 g/dL Normal [facility] Comment on above: Performed By: #### L IPA, CMP ####[facility] G[address]dp[address] [place] [id number]. Tadeo Haja Glucose [Mass/Vol] 96 mg/dL Normal 74-106 [facility] Comment on above: Performed By: #### L IPA, CMP ####[facility] Dcqtervxio[address] [place], [place] [address]Dr. Tadeo Haja Potassium [Moles/Vol] 3.6 mmol/L Normal 3.5-5.1 [facility] Comment on above: Performed By: #### L IPA, CMP ####[facility] Ilcvngehmy[address] [place], [place] [address]Dr. Tadeo Haja Protein [Mass/Vol] 7.0 g/dL Normal 6.4-8.2 [facility] Comment on above: Performed By: #### L IPA, CMP ####[facility] [address]ui[address] [place], [place] [address]Dr. Tadeo Haja Sodium [Moles/Vol] 140 mmol/L Normal 136-145 [facility] Comment on above: Performed By: #### L IPA, CMP ####[facility] [address]jc[address] [place] [id number]. Tadeo Haja Urea nitrogen [Mass/Vol] 23.0 mg/dL Critically high 7.0-18.0 [facility] Comment on above: Performed By: #### L IPA, CMP ####[facility] Wbtfic[address]frp[address] [place], [place] [address]Dr. Tadeo Smyth Urea nitrogen/Creatinine [Mass ratio] 27.4 mg/mg Normal [facility] Comment on above: Performed By: #### L IPA, CMP ####[facility] Ugovboirgd[address] [place], [place] [address]Dr. Tadeo Smyth GROUP A STREP CULTUREon S. pyogenes Ag Ql (Unsp spec) Normal [facility] Comment on above: Performed By: #### G RASTCX, SSCRN ####[facility] An[address]zzicugj[address] [place], [place] [address]Dr. Tadeo Smyth AMYLASEon 02-02-2022 Amylase [Catalytic activity/Vol] 37 U/L Normal 25-115 [facility] Comment on above: Performed By: #### C MP, VIJI, LIPA ####[facility] Peuylakqjt[address] [place], [place] [address]Dr. Tadeo Smyth CBC AUTO DIFFon 02-02-2022 BASO # 0.0 103/ul Normal 0.0-0.1 [facility] Comment on above: Performed By: #### C BC ####[facility] Cotosczfzr[address] [place], [place] [address]Dr. Tadeo Smyth Basophils/100 WBC (Bld) 0.2 % Normal 0.2-2.0 [facility] Comment on above: Performed By: #### C BC ####[facility] Twtoumisid[address] [place], [place] [address]Dr. Tadeo Smyth EO # 0.0 103/ul Normal 0.0-0.7 [facility] Comment on above: Performed By: #### C BC ####[facility] Xquhtloncs[address] [place], [place] [address]Dr. Tadeo Smyth Eosinophils/100 WBC (Bld) 0.2 % Critically low 0.9-7.0 [facility] Comment on above: Performed By: #### C BC ####[facility] Cntfywyyas[address] [place], [place] [address]Dr. Tadeo Smyth Erythrocyte distribution width (RBC) [Ratio] 13.4 % Normal 11.0-15.0 [facility] Comment on above: Performed By: #### C BC ####[facility] [address] [place] [address]Dr. Tadeo Smyth Hematocrit (Bld) [Volume fraction] 36.8 % Normal 36.0-48.0 [facility] Comment on above: Performed By: #### C BC ####[facility] [address] [place] [address]Dr. Tadeo Smyth Hemoglobin (Bld) [Mass/Vol] 11.6 g/dL Critically low 12.0-16.0 [facility] Comment on above: Performed By: #### C BC ####[facility] [address] [place] [address]Dr. Margotnicole Haja IG # 0.08 10e3/ul Critically high 0.00-0.03 [facility] Comment on above: Performed By: #### C BC ####[facility] [address]znp[address] [place] [address]Dr. Tadeo Smyth IG % 0.6 % Critically high 0.0-0.5 [facility] Comment on above: Performed By: #### C BC ####[facility] [address] [place] [address]Dr. Margotnicole Smyth LYMPH # 0.9 103/ul Critically low 1.2-3.8 [facility] Comment on above: Performed By: #### C BC ####[facility] [address]fr[address] [place] [address]Dr. Tadeo Smyth Lymphocytes/100 WBC (Bld) 6.9 % Critically low 20.5-60.0 [facility] Comment on above: Performed By: #### C BC ####[facility] [address] [place] [address]Dr. Margotnicole Smyth MANUAL DIFF REQ NO Normal [facility] Comment on above: Performed By: #### C BC ####[facility] Swvhpzypsx[address] [place], [place] [address]Dr. Tadeo Smyth MCH (RBC) [Entitic mass] 28.9 pg Normal 26.7-34.0 [facility] Comment on above: Performed By: #### C BC ####[facility] [address] [place] [phone]. Tadeo Smyth MCHC (RBC) [Mass/Vol] 31.5 g/dL Normal 29.9-35.2 [facility] Comment on above: Performed By: #### C BC ####[facility] [address]mt[address] [place] [phone]. Taedo Smyth MCV (RBC) [Entitic vol] 91.8 fL Normal 81.0-99.0 [facility] Comment on above: Performed By: #### C BC ####[facility] [address]zg[address] [place] [phone]. Tadeo Smyth MONO # 0.9 103/ul Critically high 0.3-0.8 [facility] Comment on above: Performed By: #### C BC ####[facility] Lch[address]qjhhf[address] [place] [phone]. Tadeo Smyth Monocytes/100 WBC (Bld) 6.9 % Normal 1.7-12.0 [facility] Comment on above: Performed By: #### C BC ####[facility] [address]kvdl[address] [place] [phone]. Tadeo Smyth NEUT # 11.6 103/ul Critically high 1.4-6.5 [facility] Comment on above: Performed By: #### C BC ####[facility] [address] [place] [phone]. Tadeo Smyth Neutrophils/100 WBC (Bld) 85.2 % Critically high 43.0-75.0 [facility] Comment on above: Performed By: #### C BC ####[facility] C[address]kmikx[address] [place] [phone]. Tadeo Smyth Platelet mean volume (Bld) [Entitic vol] 8.9 fL Critically low 9.5-13.5 [facility] Comment on above: Performed By: #### C BC ####[facility] [address]xnuavif[address] [place] [phone]. Tadeo Haja PLT 331 103/ul Normal 150-450 [facility] Comment on above: Performed By: #### C BC ####[facility] [address] [place], [place] [address]Ar. Tadeo Smyth RBC 4.01 106/ul Critically low 4.20-5.40 [facility] Comment on above: Performed By: #### C BC ####[facility] Iyob[address]zxllo[address] [place] [phone]. Tadeo Smyth WBC 13.7 103/ul Critically high 4.0-11.0 [facility] Comment on above: Performed By: #### C BC ####[facility] Udqxzzwqvg[address] [place] [phone]. Tadeo Smyth [facility] SARS-CoV-2 (COVID-19) RNA CHEN+probe Ql (Unsp spec) Not detected Normal NOT DETECTED [facility] Comment on above: Result Comment: When [...] for this test is supported by the [place] [employer] and Human Service's declaration that [...] be used). Performed By: #### C VDTBH ####[facility] [address] [place] [address]Dr. Tadeo Smyth LIPASEon 02-02-2022 Lipase [Catalytic activity/Vol] 33.0 U/L Critically low 73.0-393.0 [facility] Comment on above: Performed By: #### C MPVIJI, LIPA ####[facility] Gdf[address]ypqxj60[address] [place] [phone]. Tadeo Smyth MONOon 02-02-2022 Monocytes (Bld) [#/Vol] Negative Normal NEGATIVE [facility] Comment on above: Performed By: #### M JESSICA ####[facility] [address]xe[address] [place] [address]Dr. Tadeo Smyth PROF 14(COMP METB)on 022 Albumin [Mass/Vol] 3.1 g/dL Critically low 3.4-5.0 [facility] Comment on above: Performed By: #### C MP, VIJI, LIPA ####[facility] [address]wjhdha[address] [place] [address]Dr. Tadeo Smyth Albumin/Globulin [Mass ratio] 0.9 {ratio} Normal [facility] Comment on above: Performed By: #### C MP, VIJI, LIPA ####[facility] Xxcyukosek[address] [place] [address]Dr. Tadeo Smyth ALP [Catalytic activity/Vol] 131 U/L Critically high 46-116 [facility] Comment on above: Performed By: #### C MP, VIJI, LIPA ####[facility] [address]cuf[address]te[address] [place] [address]Dr. Tadeo Smyth ALT [Catalytic activity/Vol] 25 U/L Normal 14-59 [facility] Comment on above: Performed By: #### C MP, VIJI, LIPA ####[facility] Z[address]qymfiyf[address] [place] [address]Dr. Tadeo Smyth Anion gap [Moles/Vol] 10.0 mmol/L Normal [facility] Comment on above: Performed By: #### C MP, VIJI, LIPA ####[facility] Ovc[address]giqgda[address] [place] [address]Dr. Tadeo Smyth AST [Catalytic activity/Vol] 19 U/L Normal 15-37 [facility] Comment on above: Performed By: #### C MP, VIJI, LIPA ####[facility] Xtabsejhti[address] [place] [address]Dr. Tadeo Smyth Bilirubin [Mass/Vol] 0.6 mg/dL Normal 0.2-1.0 [facility] Comment on above: Performed By: #### C MP, VIJI, LIPA ####[facility] Yzgafmqtch[address] [place] [address]Dr. Tadeo Smyth Calcium [Mass/Vol] 8.2 mg/dL Critically low 8.5-10.1 [facility] Comment on above: Performed By: #### C MP, VIJI, LIPA ####[facility] X[address]zvh[address]ku[address] [place], [place] [address]Dr. Tadeo Smyth Chloride [Moles/Vol] 106 mmol/L Normal 98-107 [facility] Comment on above: Performed By: #### C MP, VIJI, LIPA ####[facility] Hysgwybjgm[address] [place], [place] [address]Dr. Tadeo Smyth CO2 [Moles/Vol] 25.5 mmol/L Normal 21.0-32.0 [facility] Comment on above: Performed By: #### C MP, VIJI, LIPA ####[facility] J[address]fcwbpuvt[address] [place], [place] [address]Dr. Tadeo Smyth Creatinine [Mass/Vol] 0.78 mg/dL Normal 0.55-1.02 [facility] Comment on above: Performed By: #### C MP, VIJI, LIPA ####[facility] Dzjwwoatfo[address] [place], [place] [address]Dr. Tadeo Smyth EGFR-AF FIJIAN >60 Normal >=60 [facility] Comment on above: Performed By: #### C MP, VIJI, LIPA ####[facility] Wxyumqvnfq[address] [place], [place] [address]Dr. Tadeo Smyth EGFR-NON AF FIJIAN >60 Normal >=60 [facility] Comment on above: Performed By: #### C MP, VIJI, LIPA ####[facility] Oxpidqnhfr[address] [place], [place] [address]Dr. Tadeo Smyth Globulin (S) [Mass/Vol] 3.6 g/dL Normal [facility] Comment on above: Performed By: #### C MP, VIJI, LIPA ####[facility] [address]ckiz[address] [place], [place] [address]Dr. Tadeo Smyth Glucose [Mass/Vol] 110 mg/dL Critically high 74-106 [facility] Comment on above: Performed By: #### C VIJI GARCIA, LIPA ####[facility] [address] [place] [address]Dr. Tadeo Smyth Potassium [Moles/Vol] 3.5 mmol/L Normal 3.5-5.1 [facility] Comment on above: Performed By: #### C JOSE VIJI, LIPA ####[facility] [address]ht[address] [place] [address]Dr. Tadeo Smyth Protein [Mass/Vol] 6.7 g/dL Normal 6.4-8.2 [facility] Comment on above: Performed By: #### C JOSE VIJI, LIPA ####[facility] Bpswtxhais[address] [place] [address]Dr. Tadeo Smyth Sodium [Moles/Vol] 138 mmol/L Normal 136-145 [facility] Comment on above: Performed By: #### C JOSE VIJI, LIPA ####[facility] Qjdkkpbsyr[address] [place] [address]Dr. Tadeo Smyth Urea nitrogen [Mass/Vol] 11.0 mg/dL Normal 7.0-18.0 [facility] Comment on above: Performed By: #### C JOSE VIJI, LIPA ####[facility] Dsbrijfcax[address] [place] [address]Dr. Tadeo Smyth Urea nitrogen/Creatinine [Mass ratio] 14.1 mg/mg Normal [facility] Comment on above: Performed By: #### C JOSE VIJI, LIPA ####[facility] [address]xtug[address]oll[address] [place] [address]Dr. Tadeo Smyth STREPT SCREENon 02-02-2022 STREP SCREEN A Negative Normal NEGATIVE [facility] Comment on above: Performed By: #### G RASTCX, SSCRN ####[facility] [address]upntvu[address] [place] [address]Dr. Tadeo Smyth BASIC METABOLIC PANELon 08-05 Calcium [Mass/Vol] 8.4 mg/dL Low 8.6-10.3 [facility] Comment on above: Order Comment: No: D o not add to previous draw Performed By: #### 3 216, 73909 #### [facility] [address] [place] [address], [place] Chloride [Moles/Vol] 108 mmol/L High 98-107 [facility] Comment on above: Order Comment: No: D o not add to previous draw Performed By: #### 3 005, 06826 #### [facility] [address] [place] [address], [place] CO2 [Moles/Vol] 26 mmol/L Normal 21-31 [facility] Comment on above: Order Comment: No: D o not add to previous draw Performed By: #### 3 677, 84988 #### [facility] [address] [place] [address], [place] Creatinine [Mass/Vol] 0.79 mg/dL Normal 0.60-1.20 [facility] Comment on above: Order Comment: No: D o not add to previous draw Performed By: #### 3 286, 20569 #### [facility] [address] [place] [address], [place] GFR/1.73 sq M predicted among blacks MDRD (S/P/Bld) [Vol rate/Area] mL/min/{1.73_m2} Normal >60 [facility] Comment on above: Order Comment: No: D o not add to previous draw Performed By: #### 3 852, 84815 #### [facility] [address] [place] [address], [place] GFR/1.73 sq M predicted among non-blacks MDRD (S/P/Bld) [Vol rate/Area] mL/min/{1.73_m2} Normal >60 [facility] Comment on above: Order Comment: No: D o not add to previous draw Performed By: #### 3 649, 62186 #### [facility] [address] [place] [address], [place] Glucose [Mass/Vol] 98 mg/dL Normal 70-100 [facility] Comment on above: Order Comment: No: D o not add to previous draw Performed By: #### 3 814, 17289 #### [facility] [address] [place] [address], [place] Potassium [Moles/Vol] 3.5 mmol/L Normal 3.5-5.1 [facility] Comment on above: Order Comment: No: D o not add to previous draw Performed By: #### 3 071, 28177 #### [facility] [address] [place] [address], [place] Sodium [Moles/Vol] 139 mmol/L Normal 136-145 [facility] Comment on above: Order Comment: No: D o not add to previous draw Performed By: #### 3 262, 93207 #### [facility] [address] [place] [address], [place] Urea nitrogen [Mass/Vol] 11 mg/dL Normal 7-25 [facility] Comment on above: Order Comment: No: D o not add to previous draw Performed By: #### 3 740, 09392 #### [facility] [address] [place] [address], [place] BLOOD STOOL GUAIACon 019 BLD STOOL GUAIAC Negative Normal NEGATIVE [facility] Comment on above: Order Comment: No: D o not add to previous draw Performed By: #### 3 690, 40524 #### [facility] [address] [place] [address], [place] MAGNESIUM BLOODon 08-16-2019 Magnesium [Mass/Vol] 2.0 mg/dL Normal 1.9-2.7 [facility] Comment on above: Order Comment: No: D o not add to previous draw Performed By: #### 3 821, 29084 #### [facility] *URINE CULTUREon 08-15-2019 Bacteria identified Cx Nom (U) Clinical Report: (D) Specimen/Source: URINE/MIDSTREAM Collected: 08/15/2019 20:40 Status: Final Last Updated: 08/17/2019 08:05 ISO (Final) Escherichia coli >100,000 Cfu/Ml ISOLATE: Escherichia coli RHONDA (mcg/ml) AMP./SULBAC (AMS) 16/8 Intermediate AMPICILLIN (AM) >16 Resistant AZTREONAM (AZM) <=1 Susceptible CEFAZOLIN (CZ) 2 Susceptible CEFTRIAXONE (TRAFFIC LIEUTENANT) <=0.5 Susceptible CIPROFLOXACIN (CIP) >2 Resistant ESBL (-/+) (ESBL) Negative GENTAMICIN (GM) <=1 Susceptible NITROFURANTOIN (FT) <=16 Susceptible PIP/TAZO (TZP) 4/4 Susceptible TOBRAMYCIN (TOB) 1 Susceptible TRIMETH/SULFA (SXT) >2/38 Resistant Normal [facility] Comment on above: Performed By: #### 3 6901, 09296 #### [facility] [address] BASIC METABOLIC PANELon 08-05 Calcium [Mass/Vol] 8.8 mg/dL Normal 8.6-10.3 [facility] Comment on above: Order Comment: No: D o not add to previous draw Performed By: #### 0 0071, 48922, 45773 #### [facility] [address] [place] [address], [facility] Chloride [Moles/Vol] 107 mmol/L Normal 98-107 [facility] Comment on above: Order Comment: No: D o not add to previous draw Performed By: #### 0 0071, 71428, 55800 #### [facility] [address] [place] [address], [facility] CO2 [Moles/Vol] 27 mmol/L Normal 21-31 [facility] Comment on above: Order Comment: No: D o not add to previous draw Performed By: #### 0 0071, 42163, 80094 #### [facility] [address] [place] [address], [facility] Creatinine [Mass/Vol] 0.99 mg/dL Normal 0.60-1.20 [facility] Comment on above: Order Comment: No: D o not add to previous draw Performed By: #### 0 0071, 44362, 27458 #### [facility] [address] [place] [address], [place] GFR/1.73 sq M predicted among blacks MDRD (S/P/Bld) [Vol rate/Area] mL/min/{1.73_m2} Normal >60 [facility] Comment on above: Order Comment: No: D o not add to previous draw Performed By: #### 0 0071, 20688, 04914 #### [facility] [address] [place] [address], [facility] GFR/1.73 sq M predicted among non-blacks MDRD (S/P/Bld) [Vol rate/Area] 59 ml/min/1.73sq m Abnormal >60 [facility] Comment on above: Order Comment: No: D o not add to previous draw Performed By: #### 0 0071, 57915, 95737 #### [facility] [address] [place] [address], [place] Glucose [Mass/Vol] 100 mg/dL Normal 70-100 [facility] Comment on above: Order Comment: No: D o not add to previous draw Performed By: #### 0 0071, 17653, 34659 #### [facility] [address] [place] [address], [place] Potassium [Moles/Vol] 3.6 mmol/L Normal 3.5-5.1 [facility] Comment on above: Order Comment: No: D o not add to previous draw Performed By: #### 0 0071, 54532, 86630 #### [facility] [address] [place] [address], [facility] Sodium [Moles/Vol] 140 mmol/L Normal 136-145 [facility] Comment on above: Order Comment: No: D o not add to previous draw Performed By: #### 0 0071, 33876, 72592 #### [facility] [address] [place] [address], [facility] Urea nitrogen [Mass/Vol] 9 mg/dL Normal 7-25 [facility] Comment on above: Order Comment: No: D o not add to previous draw Performed By: #### 0 0071, 67613, 56022 #### [facility] [address] [place] [address], [facility] LACTATE BLOODon 08-15-2019 Lactate [Moles/Vol] 0.8 mmol/L Normal 0.5-2.2 [facility] Comment on above: Order Comment: Yes: Add to Previous draw if able Performed By: #### 1 0054 #### [facility] [address] [place] [address], [facility] LMWH HEPARIN ASSAYon 019 LOW MOLECULAR WEIGHT HEPARIN 0.32 IU/mL Low 0.60-1.20 [facility] Comment on above: Order Comment: (draw [...] UFH and LMWH. Performed By: #### 3 9821, 04988 #### [facility] [address] [place] [address], [facility] MAGNESIUM BLOODon 08-15-2019 Magnesium [Mass/Vol] 1.7 mg/dL Low 1.9-2.7 [facility] Comment on above: Order Comment: No: D o not add to previous draw Performed By: #### 0 0071, 40273, 15506 #### [facility] [address] [place] [address], [facility] PHOSPHORUS BLOODon 9 Phosphate [Mass/Vol] 4.1 mg/dL Normal 2.5-5.0 [facility] Comment on above: Order Comment: No: D o not add to previous draw Performed By: #### 0 0071, 06214, 42969 #### [facility] [address] [place] [address], [facility] UGI WITH SMALL BOWELon 08-15 UGI WITH SMALL BOWEL [facility] [place] Department of Radiology [address] [place] [id number] Patient Name: CONSTANTINO CARDOSO : 1970 Sex: F Age: Race: White Pt. Location: [id number] Patient Status: O Ordered Date: 08/15/2019 10:45:00 [...] ischemia. Electronically signed by:Orestes Condon. Transcribed by: [email or web address], User Resident: Electronically Signed by: ORESTES CONDON @ 08/15/2019 04:13 PM Normal [facility] Comment on above: Order Comment: R/O O bstruction URINALYSIS REFLEXon 08-15-20 19 Appearance (U) SL CLOUDY Abnormal CLEAR [facility] Comment on above: Order Comment: No: D o not add to previous drawCriteria for reflexing a culture was met. Urine Culture and sensitivitywill be performed. Performed By: #### 3 5637, 99466 #### [facility] [address] [place] [address], [facility] Bilirubin [Mass/Vol] Negative Normal NEGATIVE [facility] Comment on above: Order Comment: No: D o not add to previous drawCriteria for reflexing a culture was met. Urine Culture and sensitivitywill be performed. Performed By: #### 3 6900, 63847 #### [facility] [address] [place] [address], [facility] BLOOD SMALL Abnormal NEGATIVE [facility] Comment on above: Order Comment: No: D o not add to previous drawCriteria for reflexing a culture was met. Urine Culture and sensitivitywill be performed. Performed By: #### 3 690, 27173 #### [facility] [address] [place] [address], [facility] Color (U) YELLOW Normal YELLOW [facility] Comment on above: Order Comment: No: D o not add to previous drawCriteria for reflexing a culture was met. Urine Culture and sensitivitywill be performed. Performed By: #### 3 690, 20587 #### [facility] [address] [place] [id number], [facility] EPIS OCC Normal FEW,OCC,NON E SEEN [facility] Comment on above: Order Comment: No: D o not add to previous drawCriteria for reflexing a culture was met. Urine Culture and sensitivitywill be performed. Performed By: #### 3 431, 84278 #### [facility] [address] [facility] [place] [address], [facility] Glucose [Mass/Vol] Negative Normal NEGATIVE [facility] Comment on above: Order Comment: No: D o not add to previous drawCriteria for reflexing a culture was met. Urine Culture and sensitivitywill be performed. Performed By: #### 3 690, 11038 #### [facility] [address] [place] [address], [place] HYALINE CASTS 6-10 Abnormal NONE SEEN [facility] Comment on above: Order Comment: No: D o not add to previous drawCriteria for reflexing a culture was met. Urine Culture and sensitivitywill be performed. Performed By: #### 3 619, 49952 #### [facility] [address] [place] [address], [place] KETONE Negative Normal NEGATIVE [facility] Comment on above: Order Comment: No: D o not add to previous drawCriteria for reflexing a culture was met. Urine Culture and sensitivitywill be performed. Performed By: #### 3 6471, 46761 #### [facility] [address] [place] [address], [facility] LEUK JONN MODERATE Abnormal NEGATIVE [facility] Comment on above: Order Comment: No: D o not add to previous drawCriteria for reflexing a culture was met. Urine Culture and sensitivitywill be performed. Performed By: #### 3 6901, 69772 #### [facility] [address] [place] [address], [facility] MUCUS THREADS FEW Abnormal NONE SEEN [facility] Comment on above: Order Comment: No: D o not add to previous drawCriteria for reflexing a culture was met. Urine Culture and sensitivitywill be performed. Performed By: #### 3 247, 33461 #### [facility] [address] [place] [address], [facility] Nitrite Ql (U) Negative Normal NEGATIVE [facility] Comment on above: Order Comment: No: D o not add to previous drawCriteria for reflexing a culture was met. Urine Culture and sensitivitywill be performed. Performed By: #### 3 261, 96596 #### [facility] [address] [place] [address], [facility] pH (Bld) 5.0 Normal 5.0-8.0 [facility] Comment on above: Order Comment: No: D o not add to previous drawCriteria for reflexing a culture was met. Urine Culture and sensitivitywill be performed. Performed By: #### 3 5661, 37412 #### [facility] [address] [place] [address], [place] Protein (U) [Mass/Vol] Negative Normal NEGATIVE [facility] Comment on above: Order Comment: No: D o not add to previous drawCriteria for reflexing a culture was met. Urine Culture and sensitivitywill be performed. Performed By: #### 3 6901, 22457 #### [facility] [address] [facility] RBC (U) [#/Vol] 6-10 Abnormal NONE SEEN [facility] Comment on above: Order Comment: No: D o not add to previous drawCriteria for reflexing a culture was met. Urine Culture and sensitivitywill be performed. Performed By: #### 3 6901, 03881 #### [facility] [address] SPEC GRAV 1.025 High 1.015-1.020 [facility] Comment on above: Order Comment: No: D o not add to previous drawCriteria for reflexing a culture was met. Urine Culture and sensitivitywill be performed. Performed By: #### 3 6901, 58673 #### [facility] [address] [facility] WBC UA 51-100 Abnormal NONE SEEN [facility] Comment on above: Order Comment: No: D o not add to previous drawCriteria for reflexing a culture was met. Urine Culture and sensitivitywill be performed. Performed By: #### 3 6901, 56133 #### [facility] [address] [facility] CBC COMPLETE BLOOD COUNTon 10-15-2018 Erythrocyte distribution width (RBC) [Ratio] 12.7 % Normal 11.5-15.0 [facility] Comment on above: Order Comment: No: D o not add to previous draw Performed By: #### 5 0608 #### [facility] [address] [facility] Hematocrit (Bld) [Volume fraction] 31.2 % Low 36.0-45.0 [facility] Comment on above: Order Comment: No: D o not add to previous draw Performed By: #### 5 0608 #### [facility] [address] [facility] [place] [address], [facility] Hemoglobin (Bld) [Mass/Vol] 9.8 g/dL Low 12.0-15.0 [facility] Comment on above: Order Comment: No: D o not add to previous draw Performed By: #### 5 0608 #### [facility] [address] [place] [id number], [facility] MCH (RBC) [Entitic mass] 29.1 pg Normal 27.0-33.0 [facility] Comment on above: Order Comment: No: D o not add to previous draw Performed By: #### 5 0608 #### [facility] [address] [facility] [place] [place] [address], [facility] MCHC (RBC) [Mass/Vol] 31.4 g/dL Low 32.0-35.0 [facility] Comment on above: Order Comment: No: D o not add to previous draw Performed By: #### 5 0608 #### [facility] [address] [facility] [place] [place] [address], [facility] MCV (RBC) [Entitic vol] 92.6 fL Normal 82.0-98.0 [facility] Comment on above: Order Comment: No: D o not add to previous draw Performed By: #### 5 0608 #### [facility] [address] [facility] [place] [address], [facility] Nucleated RBC/100 WBC (Bld) [Ratio] 0 % Normal 0-0 [facility] Comment on above: Order Comment: No: D o not add to previous draw Performed By: #### 5 0608 #### [facility] [address] [facility] [place] [place] [address], [facility] PLAT CNT 340 10*3/uL Normal 150-400 [facility] Comment on above: Order Comment: No: D o not add to previous draw Performed By: #### 5 0608 #### [facility] [address] [place] [address], [facility] RBC (Bld) [#/Vol] 3.37 10*6/uL Low 3.80-5.00 [facility] Comment on above: Order Comment: No: D o not add to previous draw Performed By: #### 5 0608 #### [facility] [address] [facility] [place] [place] [address], [facility] WBC (Bld) [#/Vol] 6.04 10*3/uL Normal 4.00-10.60 [facility] Comment on above: Order Comment: No: D o not add to previous draw Performed By: #### 5 0608 #### [facility] [address] [facility] PROTHROMBIN TIMEon 9 INR Coag (PPP) [Relative time] 1.09 {INR} Normal 0.91-1.16 [facility] Comment on above: Order Comment: No: [...] 1995;108:[id number]. Performed By: #### 5 6101 #### [facility] [address] [facility] [place] [place] [address], [facility] PT Coag (PPP) [Time] 14.1 s Normal 12.3-14.8 [facility] Comment on above: Order Comment: No: D o not add to previous draw Result Comment: ALL RESULTS MUST BE INTERPRETED WITH RESPECT TO BLOOD DRAWING ARTIFACT OR DILUTION ERROR OF ANTICOAGULANT AT THE TIME OF SAMPLING. Performed By: #### 5 6101 #### [id number] [place] [address] LIVER 08-14-2019 [facility] Department of Radiology [address] [place] [id number] Patient Name: CONSTANTINO CARDOSO : 1970 Sex: F Age: Race: White Pt. Location: [id number] Patient Status: O Ordered Date: 08/13/2019 8:30:00 [...] cholecystectomy. Electronically signed by:Orestes Condon. Transcribed by: [email or web address], User Resident: Electronically Signed by: ORESTES CONDON @ 08/14/2019 02:09 PM Normal [facility] Comment on above: Order Comment: R/O S tones BASIC METABOLIC PANELon 12-0 Calcium [Mass/Vol] 9.4 mg/dL Normal 8.6-10.3 [facility] Comment on above: Order Comment: No: D o not add to previous draw Performed By: #### 3 174, 08816 #### [facility] [address] [place] [address], [place] Chloride [Moles/Vol] 105 mmol/L Normal 98-107 [facility] Comment on above: Order Comment: No: D o not add to previous draw Performed By: #### 3 238, 19689 #### [facility] [address] [place] [address], [place] CO2 [Moles/Vol] 26 mmol/L Normal 21-31 [facility] Comment on above: Order Comment: No: D o not add to previous draw Performed By: #### 3 715, 58382 #### [facility] [address] [place] [address], [place] Creatinine [Mass/Vol] 1.03 mg/dL Normal 0.60-1.20 [facility] Comment on above: Order Comment: No: D o not add to previous draw Performed By: #### 3 633, 46285 #### [facility] [address] [place] [address], [place] GFR/1.73 sq M predicted among blacks MDRD (S/P/Bld) [Vol rate/Area] mL/min/{1.73_m2} Normal >60 [facility] Comment on above: Order Comment: No: D o not add to previous draw Performed By: #### 3 246, 38536 #### [facility] [address] [place] [address], [place] GFR/1.73 sq M predicted among non-blacks MDRD (S/P/Bld) [Vol rate/Area] 57 ml/min/1.73sq m Abnormal >60 [facility] Comment on above: Order Comment: No: D o not add to previous draw Performed By: #### 3 829, 10817 #### [facility] [address] [place] [address], [place] Glucose [Mass/Vol] 96 mg/dL Normal 70-100 [facility] Comment on above: Order Comment: No: D o not add to previous draw Performed By: #### 3 929, 82847 #### [facility] [address] [place] [address], [place] Potassium [Moles/Vol] 4.1 mmol/L Normal 3.5-5.1 [facility] Comment on above: Order Comment: No: D o not add to previous draw Performed By: #### 3 674, 31074 #### [facility] [address] [place] [address], [place] Sodium [Moles/Vol] 138 mmol/L Normal 136-145 [facility] Comment on above: Order Comment: No: D o not add to previous draw Performed By: #### 3 738, 62140 #### [facility] [address] [place] [address], [place] Urea nitrogen [Mass/Vol] 16 mg/dL Normal 7-25 [facility] Comment on above: Order Comment: No: D o not add to previous draw Performed By: #### 3 444, 97196 #### [facility] [address] [place] [address], [place] CBC W/DIFFon 08-13-2019 ABS BASOPHILS 0.0 10*3/uL Normal 0.0-0.2 [facility] Comment on above: Order Comment: No: D o not add to previous draw Performed By: #### 5 0103 #### [facility] [address] [place] [address], [facility] ABS IMM GRANS 0.0 10*3/uL Normal 0.0-0.2 [facility] Comment on above: Order Comment: No: D o not add to previous draw Performed By: #### 5 0103 #### [facility] [address] [facility] [place] [address], [facility] ABS NEUTROPHILS 4.0 10*3/uL Normal 1.6-7.6 [facility] Comment on above: Order Comment: No: D o not add to previous draw Performed By: #### 5 0103 #### [facility] [address] [place] [address], [facility] Basophils/100 WBC (Bld) 0.5 % Normal 0.0-1.0 [facility] Comment on above: Order Comment: No: D o not add to previous draw Performed By: #### 5 0103 #### [facility] [address] [place] [address], [facility] Eosinophils (Bld) [#/Vol] 0.2 10*3/uL Normal 0.0-0.5 [facility] Comment on above: Order Comment: No: D o not add to previous draw Performed By: #### 5 0103 #### [facility] [address] [place] [address], [facility] Eosinophils/100 WBC (Bld) 3.3 % Normal 0.0-6.0 [facility] Comment on above: Order Comment: No: D o not add to previous draw Performed By: #### 5 0103 #### [facility] [address] [facility] [place] [id number], [facility] Erythrocyte distribution width (RBC) [Ratio] 12.7 % Normal 11.5-15.0 [facility] Comment on above: Order Comment: No: D o not add to previous draw Performed By: #### 5 0103 #### [facility] [address] [facility] [place] [place] [address], [facility] Hematocrit (Bld) [Volume fraction] 33.4 % Low 36.0-45.0 [facility] Comment on above: Order Comment: No: D o not add to previous draw Performed By: #### 5 0103 #### [facility] [address] [place] [address], [facility] Hemoglobin (Bld) [Mass/Vol] 10.5 g/dL Low 12.0-15.0 [facility] Comment on above: Order Comment: No: D o not add to previous draw Performed By: #### 5 0103 #### [facility] [address] [place] [address], [facility] IMMATURE GRANS 0.2 % Normal 0.0-1.0 [facility] Comment on above: Order Comment: No: D o not add to previous draw Performed By: #### 5 0103 #### [facility] [address] [place] [address], [facility] Lymphocytes (Bld) [#/Vol] 1.8 10*3/uL Normal 1.2-4.0 [facility] Comment on above: Order Comment: No: D o not add to previous draw Performed By: #### 5 0103 #### [facility] [address] [place] [address], [facility] Lymphocytes/100 WBC (Bld) 28.2 % Normal 20.0-45.0 [facility] Comment on above: Order Comment: No: D o not add to previous draw Performed By: #### 5 0103 #### [facility] [address] [place] [id number], [facility] MCH (RBC) [Entitic mass] 28.9 pg Normal 27.0-33.0 [facility] Comment on above: Order Comment: No: D o not add to previous draw Performed By: #### 5 0103 #### [facility] [address] [place] [address], [facility] MCHC (RBC) [Mass/Vol] 31.4 g/dL Low 32.0-35.0 [facility] Comment on above: Order Comment: No: D o not add to previous draw Performed By: #### 5 0103 #### [facility] [address] [place] [address], [facility] MCV (RBC) [Entitic vol] 92.0 fL Normal 82.0-98.0 [facility] Comment on above: Order Comment: No: D o not add to previous draw Performed By: #### 5 0103 #### [facility] [address] [facility] [place] [address], [facility] Monocytes (Bld) [#/Vol] 0.4 10*3/uL Normal 0.1-1.0 [facility] Comment on above: Order Comment: No: D o not add to previous draw Performed By: #### 5 0103 #### [facility] [address] [place] [address], [facility] MONOS 6.2 % Normal 5.0-12.0 [facility] Comment on above: Order Comment: No: D o not add to previous draw Performed By: #### 5 0103 #### [facility] [address] [facility] [place] [address], [facility] Neutrophils/100 WBC (Bld) 61.6 % Normal 40.0-72.0 [facility] Comment on above: Order Comment: No: D o not add to previous draw Performed By: #### 5 0103 #### [facility] [address] [place] [address], [facility] Nucleated RBC/100 WBC (Bld) [Ratio] 0 % Normal 0-0 [facility] Comment on above: Order Comment: No: D o not add to previous draw Performed By: #### 5 0103 #### [facility] [address] [place] [address], [facility] PLAT CNT 382 10*3/uL Normal 150-400 [facility] Comment on above: Order Comment: No: D o not add to previous draw Performed By: #### 5 0103 #### [facility] [address] [place] [address], [facility] RBC (Bld) [#/Vol] 3.63 10*6/uL Low 3.80-5.00 [facility] Comment on above: Order Comment: No: D o not add to previous draw Performed By: #### 5 0103 #### [facility] [address] [place] [address], [facility] WBC (Bld) [#/Vol] 6.45 10*3/uL Normal 4.00-10.60 [facility] Comment on above: Order Comment: No: D o not add to previous draw Performed By: #### 5 0103 #### [facility] [address] [place] [id number], [facility] LIPASE BLOODon 08-13-2019 Lipase [Catalytic activity/Vol] 13 Units/L Normal 11-82 [facility] Comment on above: Performed By: #### [id number] #### [facility] [address] Vital Signs Date Time Vital Sign Value Performing Clinician Facility 07-22-2023 13:19-0500 Body height 170.[address] Work Phone: [facility] 07-22-2023 13:19-0500 Body weight 83.[address] Work Phone: [facility] 07-14-2023 11:40-0500 Diastolic blood pressure 95 mm[Hg] Marques Bradley MD Work Phone: [facility] 07-14-2023 11:40-0500 Heart rate 56 /min Marques Bradley MD Work Phone: [facility] 07-14-2023 11:40-0500 Respiratory rate 16 /min Marques Bradley MD Work Phone: [facility] 07-14-2023 11:40-0500 SaO2% (BldA) [Mass fraction] 97 % Marques Bradley MD Work Phone: [facility] 07-14-2023 11:40-0500 Systolic blood pressure 158 mm[Hg] Marques Bradley MD Work Phone: [facility] 07-14-2023 11:10-0500 Body temperature 97.2 [degF] Marques Bradley MD Work Phone: [facility] 07-14-2023 08:34-0500 Body height 170.2 cm Marques Bradley MD Work Phone: [facility] 07-14-2023 08:34-0500 Body weight 88 kg Marques Bradley MD Work Phone: [facility] 04-21-2023 09:30-0400 Body height 170.18 cm Renny Gan Other [employer] Other 04-21-2023 09:30-0400 Body mass index (BMI) [Ratio] 31.21 kg/m2 Renny Gan Other [employer] Other 04-21-2023 09:30-0400 Body weight 90.4 kg Renny Gan Other [employer] Other 04-21-2023 09:30-0400 Diastolic blood pressure 78 mm[Hg] Renny Gan Other [employer] Other 04-21-2023 09:30-0400 Systolic blood pressure 130 mm[Hg] Renny Gan Other [employer] Other 03-23-2023 07:33-0400 Diastolic blood pressure 80 mm[Hg] [address] [facility] Judi Youssef Work Phone: [facility] 03-23-2023 07:33-0400 Heart rate 81 /min [address] [facility] Judi Youssef Work Phone: [facility] 03-23-2023 07:33-0400 Respiratory rate 14 /min [address] [facility] Judi Youssef Work Phone: [facility] 03-23-2023 07:33-0400 SaO2% (BldA) [Mass fraction] 95 % [address] [facility] Judi Youssef Work Phone: [facility] 03-23-2023 07:33-0400 Systolic blood pressure 171 mm[Hg] [address] [facility] Judi Youssef Work Phone: [facility] 03-23-2023 06:20-0400 Body height 170.[address] [facility] Judi Youssef Work Phone: [facility] 03-23-2023 06:20-0400 Body temperature 97.4 [degF] [address] [facility] Judi oYussef Work Phone: [facility] 03-23-2023 06:20-0400 Body weight [address] [facility] Judi Youssef Work Phone: [facility] 02-19-2023 00:53-0400 Body temperature 96.98 [degF] Kaylinn Dokken [facility] 02-19-2023 00:53-0400 Diastolic blood pressure 99 mm[Hg] Kaylinn Dokken [facility] 02-19-2023 00:53-0400 Heart rate 75 /min Kaylinn Dokken [facility] 02-19-2023 00:53-0400 Respiratory rate 16 /min Kaylinn Dokken [facility] 02-19-2023 00:53-0400 SaO2% (BldA) [Mass fraction] 98 % Zabrina Patton [facility] 02-19-2023 00:53-0400 Systolic blood pressure 153 mm[Hg] Zabrina Patton [facility] 02-15-2023 10:33-0400 Diastolic blood pressure 89 mm[Hg] [address] [facility] Judi Mikael Work Phone: [facility] 02-15-2023 10:33-0400 SaO2% (BldA) [Mass fraction] 100 % [address] [facility] Judi Mikael Work Phone: [facility] 02-15-2023 10:33-0400 Systolic blood pressure 149 mm[Hg] [address] [facility] Judi Mikael Work Phone: [facility] 02-15-2023 10:00-0400 Heart rate 83 /min [address] [facility] Judi Mikael Work Phone: [facility] 02-15-2023 10:00-0400 Respiratory rate 16 /min [address] [facility] Judi Mikael Work Phone: [facility] 02-15-2023 08:06-0400 Body height 170.[address] [facility] Judi Mikael Work Phone: [facility] 02-15-2023 08:06-0400 Body temperature 97.6 [degF] [address] [facility] Judi Mikael Work Phone: [facility] 02-15-2023 08:06-0400 Body weight 89.[address] [facility] Judi Mikael Work Phone: [facility] 10-26-2022 08:03-0500 Diastolic blood pressure 87 mm[Hg] [address] [facility] Judi Mikael Work Phone: [facility] 10-26-2022 08:03-0500 Heart rate 70 /min [address] [facility] Judi Mikael Work Phone: [facility] 10-26-2022 08:03-0500 Respiratory rate 18 /min [address] [facility] Judi Ugaldemer Work Phone: [facility] 10-26-2022 08:03-0500 SaO2% (BldA) [Mass fraction] 98 % [address] [facility] Judi Ugaldemer Work Phone: [facility] 10-26-2022 08:03-0500 Systolic blood pressure 161 mm[Hg] [address] [facility] Judijose manuel Ugaldemer Work Phone: [facility] 10-26-2022 06:17-0500 Body height 170.[address] [facility] Judi Ugaldemer Work Phone: [facility] 10-26-2022 06:17-0500 Body temperature 97.2 [degF] [address] [facility] Judi Ugaldemer Work Phone: [facility] 10-26-2022 06:17-0500 Body weight 88.[address] [facility] Judi Ugaldemer Work Phone: [facility] 07-22-2022 14:34-0500 Diastolic blood pressure 83 mm[Hg] Ospina SALAM [facility] 07-22-2022 14:34-0500 Mean blood pressure 101 mm[Hg] Ospina SALAM [facility] 07-22-2022 14:34-0500 Systolic blood pressure 136 mm[Hg] Ospina SALAM [facility] 07-22-2022 14:30-0500 Blood Pressure Location Ospina SALAM [facility] 07-22-2022 14:30-0500 Diastolic blood pressure 89 mm[Hg] Ospina SALAM [facility] 07-22-2022 14:30-0500 Heart rate 62 /min Ospina SALAM [facility] 07-22-2022 14:30-0500 Respiratory rate 16 /min Ospina SALAM [facility] 07-22-2022 14:30-0500 SaO2% (BldA) [Mass fraction] 98 % Ospina SALAM [facility] 07-22-2022 14:30-0500 Systolic blood pressure 141 mm[Hg] Ospina SALAM [facility] 04-14-2022 14:50-0400 Blood Pressure Location Moniquejuan luis ReddyJimmy [facility] 04-14-2022 14:50-0400 Body temperature 97.16 [degF] Moniquejuan luis ReddyJimmy [facility] 04-14-2022 14:50-0400 Diastolic blood pressure 86 mm[Hg] Monique Jimmy [facility] 04-14-2022 14:50-0400 Heart rate 72 /min Monique Jimmy [facility] 04-14-2022 14:50-0400 SaO2% (BldA) [Mass fraction] 97 % Monique Jimmy [facility] 04-14-2022 14:50-0400 Systolic blood pressure 131 mm[Hg] Monique Jimmy [facility] 01-28-2022 13:36-0400 Blood Pressure Location Monique Jimmy [facility] 01-28-2022 13:36-0400 Body temperature 97.52 [degF] Monique Marquez [facility] 01-28-2022 13:36-0400 Diastolic blood pressure 85 mm[Hg] Monique Marquez [facility] 01-28-2022 13:36-0400 Heart rate 73 /min Monique Marquez [facility] 01-28-2022 13:36-0400 SaO2% (BldA) [Mass fraction] 96 % Monique Marquez [facility] 01-28-2022 13:36-0400 Systolic blood pressure 122 mm[Hg] Monique Marquez [facility] 01-11-2022 10:15-0400 Blood Pressure Location Ospina SALAM [facility] 01-11-2022 10:15-0400 Diastolic blood pressure 106 mm[Hg] Ospina SALAM [facility] 01-11-2022 10:15-0400 Heart rate 70 /min Ospina SALAM [facility] 01-11-2022 10:15-0400 Respiratory rate 28 /min Ospina SALAM [facility] 01-11-2022 10:15-0400 SaO2% (BldA) [Mass fraction] 99 % Ospina SALAM [facility] 01-11-2022 10:15-0400 Systolic blood pressure 137 mm[Hg] Ospina SALAM [facility] 01-11-2022 10:05-0400 Blood Pressure Location Ospina SALAM [facility] 01-11-2022 10:05-0400 Diastolic blood pressure 74 mm[Hg] Ospina SALAM [facility] 01-11-2022 10:05-0400 Heart rate 67 /min Ospina SALAM [facility] 01-11-2022 10:05-0400 Respiratory rate 14 /min Ospina SALAM [facility] 01-11-2022 10:05-0400 SaO2% (BldA) [Mass fraction] 97 % Ospina SALAM [facility] 01-11-2022 10:05-0400 Systolic blood pressure 128 mm[Hg] Ospina SALAM [facility] 01-11-2022 10:00-0400 Blood Pressure Location Ospina SALAM [facility] 01-11-2022 10:00-0400 Diastolic blood pressure 79 mm[Hg] Ospina SALAM [facility] 01-11-2022 10:00-0400 Heart rate 66 /min Ospina SALAM [facility] 01-11-2022 10:00-0400 Respiratory rate 16 /min Ospina SALAM [facility] 01-11-2022 10:00-0400 SaO2% (BldA) [Mass fraction] 98 % Ospina SALAM [facility] 01-11-2022 10:00-0400 Systolic blood pressure 134 mm[Hg] [employer] [facility] 01-11-2022 09:50-0400 Body temperature 97.52 [degF] Ospina [employer] [facility] 01-11-2022 09:45-0400 Respiratory rate 15 /min [employer] [facility] 01-11-2022 09:18-0400 Body temperature 97.34 [degF] Ospina [employer] [facility] 01-11-2022 09:18-0400 Respiratory rate 20 /min [employer] [facility] Encounters Encounter Date Encounter Type Care Provider Facility Start: 12-01-2023 ambulatory [facility] Ambulatory [facility] Start: 08-25-2023 End: 08-25-2023 ambulatory [facility] Facility:[facility] Start: 07-29-2023 Orders Only Evelyn Black RN Gen [facility] Surgery Comment on above: Gastroparesis (Prima ry Dx) Start: 07-22-2023 End: 07-22-2023 ambulatory MARQUES BRADLEY Facility:[facility] Start: 07-22-2023 Telephone encounter Evelyn Black RN General Surgery Start: 07-22-2023 End: 07-22-2023 Nutrition therapy Melissa Montalvo RD Work Phone: General Surgery Comment on above: Gastroparesis (Prima ry Dx); Malnutrition of moderate degree (HCC); Gastro-esophageal reflux disease without esophagitis; Overweight (BMI 25.0-29.9); Dietary counseling and surveillance Start: 07-22-2023 End: 07-22-2023 Telemedicine consultation with patient Melissa Montalvo RD Work Phone: [facility] Start: 07-14-2023 End: 07-14-2023 ambulatory MARQUES BRADLEY Facility:[facility] Start: 07-14-2023 End: 07-14-2023 Subsequent hospital visit by physician Marques Bradley MD Work Phone: Gastroenterology Comment on above: Dysphagia, unspecifi ed type [R13.10] Start: 07-13-2023 End: 07-13-2023 ambulatory MARQUES BRADLEY Facility:[facility] Start: 06-06-2023 End: 06-07-2023 ambulatory Samuel Estrella Facility:[facility] Start: 05-27-2023 Telephone encounter Evelyn Black RN General Surgery Comment on above: Results Start: 05-26-2023 End: 05-26-2023 ambulatory MARQUES BRADLEY Facility:[facility] Start: 05-25-2023 End: 05-25-2023 ambulatory JOEL ALEJANDRA Facility:[facility] Start: 05-25-2023 End: 05-25-2023 Nursing evaluation of patient and report Nurse [facility] 2 Work Phone: Gastroenterology Comment on above: Nausea Start: 05-16-2023 Orders Only Evelyn Black RN Gen eral Surgery Comment on above: Nausea (Primary Dx); Dysphagia, unspecified type Start: 05-06-2023 End: 05-07-2023 ambulatory MARQUES BRADLEY Facility:[facility] Start: 05-02-2023 Telephone encounter Evelyn Black RN General Surgery Start: 04-26-2023 Telephone encounter Evelyn Black RN General Surgery Start: 04-21-2023 End: 04-21-2023 ambulatory Renny Gan Other [employer] Other Start: 04-21-2023 Office outpatient vi sit 15 minutes Renny Gan [facility] Gastroenterology Start: 04-18-2023 Telephone encounter Evelyn Black RN General Surgery Comment on above: [facility] Start: 04-07-2023 Telephone encounter Guillermo Martinez DO Work Phone: Gastroenterology Comment on above: Appointment Start: 04-05-2023 End: 04-05-2023 ambulatory Imad Asaad Other [employer] Other Start: 04-05-2023 Telephone encounter Imad Asaad [facility] Start: 03-29-2023 ambulatory Facility:U Start: 03-26-2023 ambulatory Facility:[id number] Start: 03-26-2023 End: 03-31-2023 Evaluation and management of inpatient Renny Gan Facility:[facility] Start: 03-26-2023 ambulatory Facility:[id number] Start: 03-24-2023 End: 03-24-2023 ambulatory Imad Asaad Other [employer] Other Start: 03-24-2023 Telephone encounter Imad Asaad [facility] Start: 03-23-2023 End: 03-23-2023 Emergency department patient visit Judi Youssef Facility:[facility] Start: 03-23-2023 End: 03-23-2023 Emergency department patient visit [address] [facility] Judi Youssef Work Phone: [facility] Work Phone: Start: 03-22-2023 End: 03-22-2023 ambulatory Imad Asaad Other [employer] Other Start: 03-22-2023 Telephone encounter Imad Asaad [facility] Start: 03-09-2023 End: 03-09-2023 ambulatory Imad Asaad Other [employer] Other Start: 03-09-2023 Telephone encounter Imad Asaad [facility] Start: 03-01-2023 End: 03-01-2023 ambulatory Imad Asaad Other [employer] Other Start: 03-01-2023 Telephone encounter Imad Asaad [facility] Start: 02-19-2023 End: 02-19-2023 Emergency department patient visit Zabrina Patton Facility:[facility] Start: 02-19-2023 End: 02-19-2023 Emergency department patient visit Zabrina Patton [facility] Start: 02-15-2023 End: 02-15-2023 Emergency department patient visit [address] [facility] Judi Youssef Work Phone: [facility] Work Phone: Start: 11-30-2022 End: 12-01-2022 ambulatory JUDIJOSE MANUEL YOUSSEF Facility:[facility] Start: 11-27-2022 End: 11-28-2022 ambulatory JUDIJOSE MANUEL YOUSSEF Facility:[facility] Start: 11-26-2022 End: 11-26-2022 ambulatory Imad Asaad Other [employer] Other Start: 11-26-2022 Telephone encounter Imad Asaad [facility] Gastroenterology Start: 11-04-2022 End: 11-04-2022 ambulatory Judi Youssef Facility:[facility] Start: 11-04-2022 End: 11-04-2022 Admission to same day surgery center [address] [facility] Juid Youssef Work Phone: [facility] [place] Work Phone: Start: 11-04-2022 End: 11-04-[address] [facility] Judi Youssef Work Phone: [facility] Work Phone: Start: 11-01-2022 End: 11-02-2022 ambulatory JUDI YOUSSEF Facility:[facility] Start: 10-26-2022 End: 10-26-2022 Emergency department patient visit Judijose manuel Youssef Facility:[facility] Start: 10-26-2022 End: 10-26-2022 Emergency department patient visit [address] [facility] Judi Youssef Work Phone: [facility] Work Phone: Start: 09-23-2022 ambulatory Monique Enrique ty:[facility] Start: 09-21-2022 End: 09-21-2022 ambulatory JUDIJOSE MANUEL YOUSSEF Facility:[facility] Start: 09-18-2022 End: 09-18-2022 ambulatory BALTAZAR GEORGES . Facility:[facility] Start: 09-14-2022 End: 09-14-2022 ambulatory EUN WILSON . Facility:[facility] Start: 09-07-2022 End: 09-07-2022 ambulatory Imad Asaad Other [facility] Other Start: 09-07-2022 Telephone encounter Imad Asaad [facility] [employer] [employer] Start: 09-06-2022 End: 09-07-2022 ambulatory JUDI YOUSSEF Facility:[facility] Start: 08-20-2022 End: 08-20-2022 ambulatory BALTAZAR GEORGES . Facility:[facility] Start: 08-17-2022 End: 08-18-2022 ambulatory JUDI YOUSSEF Facility:[facility] Start: 08-11-2022 End: 08-12-2022 ambulatory JUDI YOUSSEF Facility:[facility] Start: 08-08-2022 End: 08-08-2022 ambulatory KATHRIN VANCE Facility:[facility] Start: 07-22-2022 End: 07-23-2022 ambulatory [facility] Facility:[facility] Start: 07-22-2022 End: 07-22-2022 Patient encounter procedure [facility] Start: 07-21-2022 End: 07-21-[address] NORA WINN Facility:[facility] Start: 07-15-2022 ambulatory JUDI YOUSSEF Facility: [facility] Start: 07-12-2022 Encounter for genera l adult medical examination without abnormal findings JUDI YOUSSEF [facility] Start: 07-08-2022 End: 07-09-2022 ambulatory JUDI [...] End: 04-29-2022 Lab Drop off Anai REAGAN [facility] Start: 04-14-2022 End: 04-14-2022 Patient encounter procedure Monique Marquez [facility] Start: 03-27-2022 End: 03-30-2022 Evaluation and management of inpatient SHAIKH Juan Luis DAVIS Facility:[facility] Start: 03-01-2022 End: 03-01-2022 Patient encounter procedure Monique Reddymetz [facility] Start: 02-02-2022 End: 02-02-2022 ambulatory BALTAZAR GEORGES . Facility:[facility] Start: 01-28-2022 End: 01-28-2022 Patient encounter procedure Monique Marquez [facility] Start: 01-11-2022 End: 01-11-2022 Patient encounter procedure Anai REAGAN [facility] Start: 12-24-2021 End: 12-24-2021 Patient encounter procedure JHOANA MELGOZA [facility] Start: 08-13-2019 End: 08-16-2019 Evaluation and management of inpatient LEONA MORTENSEN Facility:[facility] Procedures Date Procedure Procedure Detail Performing Clinician Start: 07-14-2023 Esophagoscp rig transoral hypopharynx crv esoph Evelyn Black RN Start: 05-25-2023 Esophageal motility study w/interp&rpt Evelyn Black RN Start: 03-23-2023 Computed tomography of abdomen and pelvis with contrast [address] [facility] Judi Youssef Work Phone: Start: 02-15-2023 Computed tomography of abdomen and pelvis with contrast [address] [facility] Judi Youssef Work Phone: Start: 11-04-2022 CT of small intestine [address] [facility] Judi Youssef Work Phone: Start: 10-26-2022 Computed tomography of abdomen and pelvis with contrast [address] [facility] Judi Youssef Work Phone: Start: 01-11-2022 Esophagogastroduodenoscopy Anai REAGAN Start: 05-13-2021 Esophagogastroduodenoscopy JHOANA Vázquez Start: 09-30-2020 Esophagogastroduodenoscopy JHOANA Vázquez Start: 03-13-2020 Colonoscopy JHOANA MELGOZA Start: 01-30-2020 Esophagogastroduodenoscopy JHOANA Vázquez Start: 08-15-2019 FLUOROSCOPY OF UPPER GI AND SMALL BOWEL USING OTHER CONTRAST ORESTES OCNDON Start: 05-17-2019 Colonoscopy JHOANA MELGOZA Start: 05-17-2019 Esophagogastroduodenoscopy JHOANA Vázquez Start: 03-02-2019 Hernia surgical mesh (physical object) JHOANA MELGOZA Comment on above: Dr. Mortensen in [place]. Hernia repair JHOANA MELGOZA Hysterectomy JHOANA MELGOZA Plan of Treatment Date Care Activity Detail Author Start: 05-06-2023 Covid-19 Vaccine ( season) Covid-19 Vaccine () [facility] Start: 05-06-2023 Influenza vaccination [facility] Start: 09-05-2022 DEPRESSION ASSESSMENT DEPRESSION ASS ESSMENT [facility] Start: 01-01-2022 COVID-19 VACCINE (4 - Pfizer series) COVID-19 VACCINE (4 - Pfizer series) [facility] Start: 2020 SHINGRIX VACCINE (1 of 2) SHINGRIX VACCINE (1 of 2) [facility] Start: 2015 COLOGUARD (FIT-DNA) COLOGUARD (FIT-D NA) [facility] Start: 2015 Colonoscopy COLONOSCOPY [facility] Start: 2015 COLORECTAL CANCER SCREENING COLORECTAL CANCER SCREENING [facility] Start: [address] COLONOGRAPHY [facility] Start: 2015 DIABETES SCREEN DIABETES SCREEN [facility] Start: 2015 Diabetes Screening Diabetes Screenin g [facility] Start: 2015 FECAL OCCULT BLOOD FECAL OCCULT BLOO D [facility] Start: 2015 Lipid 1996 panel - S cristine or Plasma Lipid Screening [facility] Start: 2015 LIPID SCREEN LIPID SCREEN [facility] Start: 2015 SIGMOIDOSCOPY SIGMOIDOSCOPY [facility] Start: 2010 Mammography [facility] Start: 2000 HPV TESTING HPV TESTING [facility] Start: 1991 PAP TESTING PAP TESTING [facility] Start: 1989 Urine microalbumin profile [facility] Start: 1988 HEPATITIS C SCREENING HEPATITIS C SC REENING [facility] Start: 1988 HIV SCREENING HIV SCREENING [facility] Start: 1970 COVID-19 VACCINE (#1) COVID-19 VACCI NE (#1) [facility] Start: 1970 HEPATITIS B (1 of 3 - 3-dose series) HEPATITIS B (1 of 3 - 3-dose series) [facility] Start: 1970 Hepatitis B Vaccine (1 of 3 - 3-dose series) Hepatitis B Vaccine (1 of 3 - 3-dose series) [facility] End: 07-29-2024 EGD - THERAPEUTIC, EUS, OR TUBE INTERVENTIONS EGD - THERAPEUTIC, EUS, OR TUBE INTERVENTIONS Endoscopy Routine Gastroparesis 1 Occurrences starting 07/29/2023 until 07/29/2024 [facility] Work Phone: Comment on above: 1 Occurrences starti ng 07/29/2023 until 07/29/2024 End: 05-16-2024 Esophageal motility study w/interp&rpt MANOMETRY ESOPHAGEAL Endoscopy Routine Nausea 1 Occurrences starting 05/16/2023 until 05/16/2024 [facility] Work Phone: Comment on above: 1 Occurrences starti ng 05/16/2023 until 05/16/2024 Esophageal motility study w/interp&rpt MANOMETRY ESOPHAGEAL Endoscopy Routine Nausea 05/25/2023 [facility] Work Phone: End: 06-14-2024 Gastric emptying imaging study NM GASTRIC EMPTYING SOLID Radiology Routine Nausea 1 Occurrences starting 05/16/2023 until 06/14/2024 [facility] Work Phone: Comment on above: 1 Occurrences starti ng 05/16/2023 until 06/14/2024 Patient Education [facility] Work Phone: Patient referral [facility] Work Phone: SURGICAL PATHOLOGY [facility] Work Phone: Comment on above: Release Upon Orderin g for 1 Occurrences starting 07/14/2023, 1 completed [facility] Immunizations Immunization Date Immunization Notes Care Provider Jamal kelly 06-09-2022 influenza virus vaccine, unspecified formulation Nurse 2 Work Phone: [facility] 03-18-2022 SARS-CoV-2 mRNA (buctiljitmd-psll-jbz jett) vaccine Anai REAGAN [facility] 11-06-2021 SARS-CoV-2 (COVID-19 ) mRNA BNT-162b2 vax Ania REAGAN [facility] 05-06-2021 influenza virus vaccine, unspecified formulation JHOANA MELGOZA [facility] 02-26-2021 SARS-CoV-2 (COVID-19 ) mRNA BNT-162b2 vax JHOANA MELGOZA [facility] 02-05-2021 SARS-CoV-2 (COVID-19 ) mRNA BNT-162b2 vax [address]ai RE[address]AN [facility] Comment on above: Result Comment: 2021: [id number] NEGATED: Highlighted row has not occurred!04-14-2022 influenza virus vaccine, unspecified formulation Monique Marquez [facility] Payers Date Payer Category Payer Unknown ROSA ISELAANTONY MARTINEZ SS PPO [id number] 2022-Present [phone] [address] [place] [address] PPO [id number] 2018 Private Health Insurance [id number] 2018 Private Health Insurance [facility] [employer] [id number] 2018-Present [phone] [address] [place] [address] HMO [id number] 1970 Unknown [id number] 1970 Unknown [id number] 1970 Unknown [id number] 1970 Unknown [id number] 1970 Unknown [id number] 1970 Unknown [id number] 1970 Unknown [id number] .593 1970 Unknown [id number] 2.16.840.1.402915.3.579.2 .593 1970 Unknown [id number] 2.16.840.1.820275.3.579.2 .593 1970 Unknown [id number] 2.16.840.1.963601.3.579.2 .593 1970 Unknown [id number] 2.16.840.1.041151.3.579.2 .593 1970 Unknown [id number] 2.16.840.1.370848.3.579.2 .593 1970 Unknown [id number] 2.16.840.1.037136.3.579.2 .593 1970 Unknown [id number] 2.16.840.1.492426.3.579.2 .593 1970 Unknown [id number] 2.16.840.1.042876.3.579.2 .593 1970 Unknown [id number] 2.16.840.1.618453.3.579.2 .593 1970 Unknown [id number] 2.16.840.1.978164.3.579.2 .593 1970 Unknown [id number] 2.16.840.1.511673.3.579.2 .593 1970 Unknown [id number] 2.16.840.1.292561.3.579.2 .593 1970 Unknown [id number] 2.16.840.1.455853.3.579.2 .593 1970 Unknown [id number] 2.16.840.1.238097.3.579.2 .593 1970 Unknown [id number] 2.16.840.1.512582.3.579.2 .356 1970 Unknown [id number] 2.16.840.1.759178.3.579.2 .356 1970 Unknown [id number] 2.16.840.1.110076.3.579.2 .727 1970 Unknown [id number] 2.16.840.1.747702.3.579.2 .727 1970 Unknown [id number] 2.16.840.1.227942.3.579.2 .727 1970 Unknown [id number] 2.16.840.1.761213.3.579.2 .727 1970 Unknown [id number] 2.16.840.1.081893.3.579.2 .1286 1970 Unknown [id number] 2.16.840.1.487345.3.579.2 .1286 1970 Unknown [id number] 2.16.840.1.816146.3.579.2 .1286 1970 Unknown [id number] 2.16.840.1.988154.3.579.2 .1286 1959 Medicaid [id number] 1959 Self-pay [id number] 1959 Unknown [id number] 1959 Unknown [id number] Medicare Medicare [id number] Unknown [id number] 2.16.840.1.668409.3.579.2 .531 Unknown [id number] 2.16.840.1.897727.3.579.2 .531 Unknown [id number] 2.16.840.1.761146.3.579.2 .531 Unknown [id number] 2.16.840.1.856791.3.579.2 .531 Unknown [id number] 2.16.840.1.480805.3.579.2 .531 Worker's Compensation Industrial Self Ins [facility] [id number] Social History Date Type Detail Facility Start: 12-03-2021 End: 05-06-2023 Tobacco smoking status Ex-smoker (finding) [facility] Start: 08-12-2020 End: 05-06-2023 Sex Assigned At Female [facility] Tobacco smoking status Never [facility] Start: 1970 Sex Assigned At Female [facility] End: 09-05-2011 History of tobacco use Current smoker [facility] Work Phone: End: 09-05-2011 History of tobacco use Cigarette Smoker [facility] Work Phone: Start: 04-28-2018 End: 05-06-2023 Tobacco use and exposure Smokeless tobacco non-user [facility] Work Phone: Start: 04-28-2018 End: 05-06-2023 Alcohol intake Current drinker of alcohol (finding) [facility] Start: 08-12-2020 End: 05-06-2023 History of Social function [facility] Start: 04-28-2018 End: 05-06-2023 Tobacco Comment still smokes [facility] Start: 04-28-2018 Alcohol Comment social [facility] Start: 1970 Sex Assigned At Not on file [facility] Start: 07-14-2023 Alcohol intake Ex-drinker (finding) [facility] Functional Status Date Assessment Result Facility 02-19-2023 Functional Status N/A [facility] 07-22-2022 Functional Status N/A [facility] 04-14-2022 Functional Status N/A [facility] Clinical Notes 12-02-2021 to 08-25-2023 Evelyn Black RN - 07/29/2023 11:17 AM ESTPatient InstructionsTelephone Encounter - Evelyn Black RN - 07/22/2023 3:[address] - 07/22/2023 1:15 PM EST Note Date & Type Note Facility 08-25-2023 Note HNO ID: [id number] Author: Ellis Mayberry DO Service: ? Author [...] Successful intubation technique: video laryngoscopy Devices used: Syncbak Endotracheal tube insertion site: oral Blade: Jake Blade size: #3 ETT size (mm): 7.0 Measured from: lips Measurement (cm): 22 Placement verified by: chest auscultation and capnometry Cormack-Lehane Classification: grade I - full view of glottis Number of attempts at approach: 1 Airway not difficult SIGNATURE: Ellis Mayberry DO PATIENT NAME: Constantino Cardoso DATE: August 25, 2023 TIME: 2:59 PM CSN: [id number] [facility] 08-25-2023 Note Q3 Patient Name: Constantino Cardoso Procedure Date: 08/25/2023 2:38 PM Date of : 1970 Admit Type: Outpatient Age: 53 Gender: Female Note Status: Finalized Attending MD: Marques Bradley MD, [id number] Procedure: Upper GI endoscopy Indications: Gastroparesis- for [...] the patient. Procedure Code(s): --- Professional --- 88190 Diagnosis Code(s): --- Professional --- K44.9 Z98.890 CPT copyright 2020 [employer]. All rights reserved. Attending Participation: I personally performed the entire procedure. Scope In: 2:59:10 PM Scope Out: 3:37:20 PM MD Marques Rainey MD 08/25/2023 3:41:00 PM This report has been signed electronically by Marques Bradley MD Number of Addenda: 0 Note Initiated On: 08/25/2023 2:38 PM [facility] 07-29-2023 Note HNO ID: [id number] Author: Evelyn Black RN Service: ? Author Type: Registered Nurse Type: Progress Notes Filed: 07/29/2023 11:18 AM Note Text: e [facility] 07-29-2023 History of Present illness Narrative e documented in this encounter [facility] 07-22-[address] - [...] High Protein, Atkins, Boost Glucose Control, Owyn, Fosters Breakfast Essentials Light Start mixed with Fairlife [...] calories, no carbonation, no caffeine. Protein juarez (cnjygkk9d, Isopure, Gatorade protein), electrolyte drinks (Gatorade or Powerade zero, sugar free liquid IV or Drip Drop), sugar free jello and sugar free popsicles are also acceptable. Nutrition Monitoring & Evaluation: increase PO intake >75% of estimated needs, weight check and patient update Need for Follow up: based on surgery status documented in this encounter [facility] 07-22-2023 Note HNO ID: [id number] Author: Melissa Montalvo RD Service: ? Author Type: Registered Dietitian Type: Progress Notes Filed: 07/22/2023 4:06 PM Note Text: [facility] Nutrition Therapy: Virtual Consult - Initial Assessment I have communicated my name and active licensure. The patient?s identity and physical location were verified at the time of this visit. Either the patient or their legal in store representative has been informed of the risks [...] High Protein, Atkins, Boost Glucose Control, Owyn, Fosters Breakfast Essentials Light Start mixed with Fairlife fat free or 1% milk. -Check www.bariatricfusion.com or www.[employer].com for additional options. Take small bites, eat slowly, chew food well, and always eat protein first. Separate eating and drinking by 30 min before and after. Aim for >64 oz water/day. Take small sips and avoid straws. Liquids should be sugar-free, no calories, no carbonation, no caffeine. 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 Union body weight: 159 lbs. 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 [facility] 07-22-2023 Miscellaneous Notes BMI SPECIALTY CARE COORDINATION TELEPHONE ENCOUNTER Pt was seen in clinic and an EGD was ordered and completed. Recommendation was a GPOEM. Will consult with surgeon next week regarding next POC for pt. Pt VU. documented in this encounter [facility] 07-22-2023 History of Present illness Narrative [facility] Nutrition Therapy: Virtual Consult - Initial Assessment I have communicated my name and active licensure. The patient s identity and physical location were verified at the time of this visit. Either the patient or their legal in store representative has been informed of the risks [...] High Protein, Atkins, Boost Glucose Control, Owyn, Fosters Breakfast Essentials Light Start mixed with Fairlife fat free or 1% milk. -Check www.bariatricfusion.com or www.[employer].com for additional options. Take small bites, eat slowly, chew food well, and always eat protein first. Separate eating and drinking by 30 min before and after. Aim for >64 oz water/day. Take small sips and avoid straws. Liquids should be sugar-free, no calories, no carbonation, no caffeine. 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 Union body weight: 159 lbs. 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 Procedure Code(s): --- Professional --- 46832 Diagnosis Code(s): --- Professional --- K44.9 K31.89 Z98.890 R10.13 CPT copyright 2020 [employer]. All rights reserved. Attending Participation: I personally performed the entire procedure. Scope In: 10:40:19 AM Scope Out: 10:50:37 AM MD Marques Rainey MD 07/14/2023 10:53:09 AM This report has been signed electronically by Marques Bradley MD Number of Addenda: 0 Note Initiated On: 07/14/2023 10:24 AM [facility] 07-14-2023 Nurse Note 1121: Dr. [...] In Department: GASTROENTEROLOGY documented in this encounter [facility] 07-13-2023 Note HNO ID: [id number] Author: Brennen Shaw, PhD Service: ? Author Type: Physician Type: Progress Notes Filed: 07/19/2023 10:07 AM Note Text: [facility]IORAL [facility] EVALUATION DATE OF SERVICE: July 13, 2023 TIME OF SERVICE: 2:10 PM-3:29 PM COST CENTER: O CPT CODE: - 75324 Brief Emotional/Behavioral Assessment with scoring/documentation - [id number] Virtual Psych Diagnostic Eval BILLING CODE: ENDO PSYL MAIN 73197/Marco DATE OF FIRST SERVICE THIS CYCLE: July 13, 2023 SESSION #: 1 BMI Surgical Pathway Visit type: Bariatric Surgeon Visit I have communicated my name and active licensure. The patient's identity and physical location were verified at the time of this visit. Either the patient or their legal in store representative has been informed of the risks and benefits of -- and alternatives to -- treatment through a remote evaluation and consents to proceed with the evaluation remotely. [facility] [employer] IDENTIFYING INFORMATION: Ms. Constantino Cardoso is a [...] the binge episod (more content not included)... [facility] 05-27-2023 Miscellaneous Notes BMI SPECIALTY CARE COORDINATION TELEPHONE ENCOUNTER Pt contacted today regarding testing ordered when she had a consult with Dr Bradley. Manometry was normal and her GES was severely delayed. Reviewed results and will discuss with if POP is the next plan of care. Will update pt. Pt agreed with plan. documented in this encounter [facility] 05-26-2023 Note HNO ID: [id number] Author: Nabil Bell RT(R) Service: Nuclear Medicine [...] 715 PATIENT DISCHARGED TO: Ambulatory patient, left MI department area. A Diagnostic radioactive procedure has taken place, with no further precautions necessary other than routine body substance precautions. More information regarding radiation safety can be found using this link: [email or web address] [email or web address] SIGNATURE: RT Charmaine(R) PATIENT NAME: Constantino Cardoso DATE: May 26, 2023 TIME: 7:17 AM PAGER/CONTACT #: [facility] 05-25-2023 Note HNO ID: [id number] Author: Pedro Gonzalez LPN Service: ? Author Type: LICENSED NURSE Type: Progress Notes Filed: 05/25/2023 4:15 PM Note Text: Name: Constantino Cardoso CCF#: [id number] Date: 05/25/2023 ESOPHAGEAL MANOMETRY TEST Indication: Nausea [...] the test without difficulty. .Pedro Gonzalez LPN [facility] 05-25-2023 History of Present illness Narrative Name: Constantino Cardoso CCF#: [id number] Date: 05/25/2023 ESOPHAGEAL MANOMETRY TEST Indication: Nausea [...] .Pedro Gonzalez LPN documented in this encounter [facility] 05-16-2023 Miscellaneous Notes BMI SPECIALTY CARE [...] a gastric bypass. documented in this encounter [facility] 09-01-2023 Note HNO ID: [id number] Author: Marques Bradley MD Service: ? Author [...] for internal providers or letter via the [employer] for external providers. Chief Complaint: dysphagia [...] Bradley MD Date: 05/12/2023 Time: 8:15 AM [facility] 05-02-2023 Miscellaneous Notes [facility] SPECIALTY CARE COORDINATION TELEPHONE ENCOUNTER Chief complaint & duration dysphagia. Type of procedure: hernia repair hiatal with Dr. MORTENSEN in [place] February of 2019. Sending OP notes Nursing assessment (subjective/objective) . pain in chest area and getting worse Went to [place] ED March 2023 who told her she needed a stent in her heart..but her c/o were difficulty swallowing and sent pt home and referred her to [facility] and was there in the hospital for [...] after records obtained documented in this encounter [facility] 04-26-2023 Miscellaneous Notes [facility] SPECIALTY CARE COORDINATION TELEPHONE ENCOUNTER Second attempt to contact this pt. Pt has upcoming information, and unable to complete any chart prep, history, symptoms, testing etc. LVM and call back number. documented in this encounter [facility] 04-21-2023 Evaluation note Encounter Date Diagnosis Assessment Notes Apr, Esophageal dysmotility (ICD-10 - K22.4) Apr, Esophageal spasm (ICD-10 - K22.4) Apr, Nausea & vomiting (ICD-10 - R11.2) Ashleynet reports that she still has nausea but no vomiting Patient reports that she is to see Dr. Strong at [facility] Patient is to start dicyclomine 20 mg 4 times daily sent to pharmcy today RTO 6 weeks Apr, Dysphagia (ICD-10 - R13.10) [facility] [employer] Other 08-14-2023 Miscellaneous Notes* Telephone Encounter - Evelyn Black RN - 04/18/2023 2:13 PM EDT BMI SPECIALTY CARE COORDINATION TELEPHONE ENCOUNTER Contacted pt regarding a referral from Dr Martinez's office. LVM and call back number. [facility] Miscellaneous Notes* Telephone Encounter - Yancy Lopez - 04/07/2023 1:15 PM EDT Referral rec'd [facility] Evaluation + Plan note Extracted from: Title:ED Note Author:Zabrian Patton DO Date :02/19/23 Right wrist sprain [...] pain, # 20 tab(s), Refills(s) 0, Pharmacy: [facility]/pharmacy #[id number], 170, cm, 02/19/23 0:56:00 EDT, Height/Length Dosing, 90.2, kg, 02/19/23 0:56:00 EDT, Weight Dosing XR Elbow 3+ Views Right XR Wrist 3+ Views Right [facility]06-17-2023 Hospital Discharge instructions Patient Education 02/19/2023 [...] are safe for you. General instructions Take ocva-lkd-skuscgm and prescription medicines only as told by [...] provider. Document Revised: 12/29/2020 Document Reviewed: 12/29/2020 [employer] Patient Education 2022 HistoryFile. Follow Up Care 02/19/2023 00:51:16 With:JUDI YOUSSEF Address: [address] [place] [address] [phone] Business (1) When:02/22/2023 Comments:Take the pain medication as prescribed as needed for pain. Please follow-up with your primary care doctor in the next 2 to 3 days for further evaluation management. Please return to the ED for any new or worsening symptoms or [facility]08-10-2022 Hospital Discharge instructions Patient Education 04/14/2022 [...] water added (diluted fruit juice). Eat bland, fzyf-po-lgykey foods in small amounts as you are able. These foods include bananas, applesauce, rice, lean meats, toast, and crackers. Avoid fluids that contain a lot of sugar or caffeine, such as energy drinks, sports drinks, and soda. Avoid alcohol. Avoid spicy or fatty foods. General instructions Take vovo-mkr-ihkemrd and prescription medicines only as told by your health care provider. Drink enough fluid to keep your urine pale yellow. Wash your hands often using soap and water. If soap and water are not available, use hand table assembler metal. Make sure that all people in your [...] eating and drinking to prevent dehydration. Take sjbe-xse-glpqwaq and prescription medicines only as told by [...] 08/22/2006 Document Revised: 12/14/2019 Document Reviewed: 01/30/2019 [employer] Patient Education 2020 HistoryFile. Follow Up Care 01/28/2022 13:58:23 With:Monique Marquez CNP Address: When:[address] [facility] 05-26-2022 Hospital Discharge instructions [...] drinks. ?Tomatoes and foods made with tomatoes. ?[place] or spicy foods. ?Chocolate and peppermint. Do not drink alcohol. General instructions Take zikc-ael-cqtdbfs and prescription medicines only as told by [...] 11/11/2004 Document Revised: 12/18/2018 Document Reviewed: 12/18/2018 [employer] Patient Education 2020 [employer] microcaps Follow Up Care 01/13/2022 12:36:01 With:Monique Marquez CNP Address: When:[address] [facility] 05-09-2022 Hospital Discharge instructions Patient Education 01/11/2022 09:56:58 Endoscopy, Care After Procedure [facility] Endoscopy Care After Procedure Please read the instructions outlined below and refer to this sheet in the next few weeks. These discharge instructions provide you with general information on caring for [facility] Your doctor may also give you specific [...] blood. Document Released: 04/05/2005 Document Re-Released: 02/13/2007 [employer] Patient Information [employer]. 01/11/2022 09:56:58 Pearce's Esophagus Pearce's Esophagus Pearce's [...] drinks. ?Tomatoes and foods made with tomatoes. ?[place] or spicy foods. ?Chocolate and peppermint. Do not drink alcohol. General instructions Take qxnc-mjn-yifomtp and prescription medicines only as told by [...] 11/11/2004 Document Revised: 12/18/2018 Document Reviewed: 12/18/2018 [employer] Patient Education 2020 HistoryFile. Follow Up Care 12/03/2021 15:32:26 With:Anai REAGAN Address: [address] [place] [address]. [address] [place] [address] Business (1) When:1 to 2 weeks Comments:Call for any problems. [facility]03-30-2022 Hospital Discharge instructions Follow Up Care 12/02/2021 10:32:32 With:JHOANA MELGOZA PA-C, URL Address: [place] [address] When: Unknown [facility] Evaluation + Plan note Future Appointments Appointment Date:01/11/2022 09:40:00 AM Scheduled Provider: Location:[facility] Appointment Type:Surgery FT [facility] Evaluation + Plan note Future Appointments Appointment Date:04/14/2022 03:00:00 PM Scheduled Provider:Monique Marquez CNP Location:[facility]ive [facility] Appointment Type:[facility] Follow Up Future Scheduled Tests Radiology* NM Gastric Emptying Study 01/28/22 [facility] Evaluation + Plan note Future Appointments Appointment Date:04/14/2022 03:00:00 PM Scheduled Provider:Monique Marquez CNP Location:[facility]ive [facility] Appointment Type:[facility] App[facility]ments Appointment Date:04/20/2022 12:00:00 PM Scheduled Provider: Location:.[facility] Appointment Type:US Abdominal/Pelvis () Appointment Date:06/02/2022 09:45:00 AM Scheduled Provider:Anai REAGAN MD Location:[facility]ive [facility] Appointment Type:[facility] Follow Up Future Scheduled Tests Laboratory* Fecal WBC Lactoferrin 04/14/22 * Giardia lamblia, Direct Detection EIA 04/14/22 * O & P Exam, Routine 04/14/22 * Clostridium difficile by PCR 04/14/22 * Enteric Panel by PCR 04/14/22 * CBC w/ Auto Diff 04/14/22 * Comprehensive Metabolic Panel 04/14/22 Radiology* US Abdomen Complete 04/20/22 [facility] Evaluation + Plan note Future Appointments Appointment Date:06/02/2022 09:45:00 AM Scheduled Provider:Anai REAGAN MD Location:[facility] Health Appointment Type:[facility] Follow Up Diagnostic Tests Pending * O & P Exam, Routine 04/29/22 * Giardia lamblia, Direct Detection EIA 04/29/22 [facility] assessment information available [facility] Work Phone: Evaluation [facility]No [facility] Other Evaluation note* Diagnosis Nausea- Primary Nausea alone Dysphagia, unspecified type documented in this encounter [facility] note* Diagnosis Nausea Nausea alone documented in this encounter [facility] note* Diagnosis Dysphagia, unspecified type Gastroparesis History of Ramiro fundoplication Personal history of surgery to other organs documented in this encounter [facility] note* Diagnosis Gastroparesis- Primary Malnutrition of moderate degree (HCC) Malnutrition of moderate degree Gastro-esophageal reflux disease without esophagitis Esophageal reflux Overweight (BMI 25.0-29.9) Overweight Dietary counseling and surveillance Dietary surveillance and counseling documented in this encounter [facility] note* Diagnosis Gastroparesis- Primary documented in this encounter [facility] general Narrative - Reported* Type Description Date Medical History mitral valve prolapse Medical History gallstones Medical History Acid reflux Medical History Hiatal Hernia Medical History headache Surgical History hysterectomy Surgical History cholecystectomy Surgical History hiatal hernia repair Hospitalization History see above Hospitalization History kindey infections hospit alized x3 [facility] Other Hospital course Narrative No data available for this section [facility] Hospital Discharge instructions No data available for this section [facility] Additional Instructions Follow-up with your primary care doctor Return to ED if develop worsening [facility] Work Phone: Hospital Discharge instructions Additional Instructions If your symptoms return/worsen or you develop any further concerns or symptoms please see your doctor or return to the emergency department immediately. Please be sure to continue follow-up with the safety scientist and with your scheduled EGD and further testing.[facility] Work Phone: Progress note No data available for this section [facility] for referral (narrative)* Diagnostic Procedure Only (Routine) - Authorized Specialty Diagnoses / Procedures [facility] Referred To Contact MOLECULAR & FUNCTIONAL IMAGING Diagnoses Nausea Procedures NM GASTRIC EMPTYING SOLID GASTRIC EMPTYING STUDY Marques Bradley MD [address] [place] [address] Molecular & Functional Imaging [address] [place] [address] Referral ID Status Reason Start Date Expiration Date Visits Requested Visits Authorized [id number] Authorized Auto-Generat ed Referral 05/16/2023 06/14/2024 1 1 * Outpatient Procedure (Routine) - Authorized Specialty Diagnoses / Procedures Referred By Eileen mueller Referred To Contact [facility] Diagnoses Nausea Procedures MANOMETRY ESOPHAGEAL ESOPHAGEAL MOTILITY STUDY W/INTERP&RPT Marques Bradley MD [address] [place] [address] [facility] [place] [address] [place] [id number] Referral ID Status Reason Start Date Expiration Date Visits Requested Visits Authorized [id number] Authorized Auto-Generat ed Referral 05/16/2023 05/16/2024 1 1 [facility] for referral (narrative)* Outpatient Procedure (Routine) - Closed Specialty Diagnoses / Procedures [facility] Referred To Contact [facility] Diagnoses Dysphagia, unspecified type Gastroparesis History of Ramiro fundoplication Procedures EGD - THERAPEUTIC, EUS, OR TUBE INTERVENTIONS ESOPHAGOGASTRODUODENOSCOPY TRANSORAL DIAGNOSTIC STOMACH SURGERY PROCEDURE UNLISTED Marques Bradley MD [address] [place] [address] [facility] [place] [address] [place] [id number] Referral ID Status Reason Start Date Expiration Date V isits Requested Visits Authorized [id number] Closed Auto-Generate d Referral 05/27/2023 05/27/2024 1 1 [facility] for referral (narrative)* Outpatient Procedure (Routine) - Authorized Specialty Diagnoses / Procedures Referred By Eileen mueller Referred To Contact [facility] Diagnoses Gastroparesis Procedures EGD - THERAPEUTIC, EUS, OR TUBE INTERVENTIONS ESOPHAGOGASTRODUODENOSC OPY TRANSORAL DIAGNOSTIC STOMACH SURGERY PROCEDURE UNLISTED Marques Bradley MD [address] [place] [address] [address] Referral ID Status Reason Start Date Expiration Date Visits Requested Visits Authorized [id number] Authorized Auto-Generat ed Referral 07/29/2024 1 1 [facility] for visit Narrative* Outpatient Procedure (Routine) - Closed Specialty Diagnoses / Procedures Referred By Eileen mueller Referred To Contact [facility] [place] Diagnoses Dysphagia, unspecified type Gastroparesis History of Ramiro fundoplication Procedures EGD - THERAPEUTIC, EUS, OR TUBE INTERVENTIONS ESOPHAGOGASTRODUODENOSCOPY TRANSORAL DIAGNOSTIC STOMACH SURGERY PROCEDURE UNLISTED Marques Bradley MD [address] [place] [address] [facility] [address] [place] [phone] Referral ID Status Reason Start Date Expiration Date V isits Requested Visits Authorized [id number] Closed Auto-Generate d Referral 05/27/2023 05/27/2024 1 1 [facility] Summary Purpose Family History No Family [...] 23 10:23am Hospital Course Note MR#: [id number] [facility] Pt. Name: Constantino Cardoso Admitted: 08/13/2019 [...] a 49-year-old female, who was transferred to [facility] from [facility] with acute abdominal pain. The pain has started on Tuesday while at work. 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 The pain feels similar to when she was here in April during her stay. During that time, she was told there was nothing left for Dr. Mortensen to do and she has been following up with GI specialist in [place]. She is actually due to have an EGD on August 22, 2019. She has been having nausea, but no vomit (more content not included)... Chief Complaint and Reason for Visit Chief Complaint stomach pain/hx marium Chief Complaint stomach pain/hx marium R10.9 K59.00 Chief Complaint abd pain stomach pian/vomiting Additional Source Comments INFORMATION SOURCE (unrecogn ized section and content) DATE CREATED AUTHOR 06/03/2020 [facility] DATE CREATED AUTHOR AUTHOR'S ORGANIZ ATION 01/17/2023 [facility] DATE CREATED AUTHOR AUTHOR'S ORGANIZ ATION 04/02/2023 [facility] DATE CREATED AUTHOR AUTHOR'S ORGANIZ ATION 05/16/2023 [facility] DATE CREATED AUTHOR AUTHOR'S ORGANIZ ATION 06/11/2023 [facility] DATE CREATED AUTHOR AUTHOR'S ORGANIZ ATION 08/26/2023 [facility] DATE CREATED AUTHOR AUTHOR'S ORGANIZ ATION 12/03/2023 [...] Attending Provider Active Judi Joan Mikael , [facility] [employer] Primary Care Provider Active Team Status: Inactive Member Role Status Dates Judi Youssef , [facility] [employer] Primary Care Provider Active Pete Thakkar DO Emergency Provider Active [employer] Professor Relationship Specialty Start Date End Date DomenicoJoel blanco PCP - General Family Medicine 04/26/18 Rafa Rangel [address] [place] [address] Referring General Surgery 04/26/18 [employer] Professor Relationship Specialty Start Date End Date DomenicoJoel blanco PCP - General Family Medicine 04/26/18 Raf[address] Rangel [address] [facility] [address] [place] [address] Referring General Surgery 04/26/18 [employer] Professor Relationship Specialty Start Date End Date DomenicoJoel blanco PCP - General Family Medicine 04/26/18 Rafa Rangel [address] [facility] [address] [place] [address] Referring General Surgery 04/26/18 [employer] Professor Relationship Specialty Start Date End Date DomenicoJoel blanco PCP - General Family Medicine 04/26/18 Raaf Rangel [address] [facility] [address] [place] [address] Referring General Surgery 04/26/18 [employer] Professor Relationship Specialty Start Date End Date Joel Alejandra PCP - General Family Medicine 04/26/18 Rafa Rangel [address] [place] [address] Referring General Surgery 04/26/18 [employer] Professor Relationship Specialty Start Date End Date Joel Alejandra PCP - General Family Medicine 04/26/18 Rafa Rangel [address] [place] [address] Referring General Surgery 04/26/18 [employer] Professor Relationship Specialty Start Date End Date Joel Alejandra PCP - General Family Medicine 04/26/18 Rafa Rangel [address] [place] [address] Referring General Surgery 04/26/18 [employer] Professor Relationship Specialty Start Date End Date Joel Alejandra PCP - General Family Medicine 04/26/18 Rafa Rangel [address] [place] [address] Referring General Surgery 04/26/18 [employer] Professor Relationship Specialty Start Date End Date Joel Alejandra PCP - General Family Medicine 04/26/18 Rafa Rangel [address] [phone] Referring General Surgery 04/26/18 [employer] Professor Relationship Specialty Start Date End Date Joel Aleajndra PCP - General Family Medicine 04/26/18 Rafa Rangel [address] [place] [phone] Referring General Surgery 04/26/18 [employer] Professor Relationship Specialty Start Date End Date Joel Alejandra PCP - General Family Medicine 04/26/18 Rafa Rangel [address] [place] [phone] Referring General Surgery 04/26/18 Goals (unrecognized section and content) Goals may be documented in a n alternate section REASON FOR VISIT (unrecogniz ed section and content) Reason Comments Appointment Reason Comments [facility] - Other Reason Onset Date Comments Procedure 05/25/2023 Manometry Esopha geal Specialty Diagnoses / Procedures Referred By Contsavanah t Referred To Contact [facility] Diagnoses Nausea Procedures MANOMETRY ESOPHAGEAL ESOPHAGEAL MOTILITY STUDY W/INTERP&RPT Marques Bradley MD [address] [place] [address] [facility] [address] [place] [address] Referral ID Status Reason Start Date Expiration Date V isits Requested Visits Authorized [id number] Closed Auto-Generate d Referral 05/16/2023 05/16/2024 1 1 Reason Comments Results Reason Comments Patient Education Assessment Source Comments (unrecognize d section and content) In the event this informatio n is protected by the Federal Confidentiality of Alcohol and Drug Abuse Patient Records regulations: The Federal rules restrict any use of the information to criminally investigate or prosecute any alcohol or drug abuse patient.[facility] the event this information is protected by the Federal Confidentiality of Alcohol and Drug Abuse Patient Records regulations: The Federal rules restrict any use of the information to criminally investigate or prosecute any alcohol or drug abuse patient.[facility] the event this information is protected by the Federal Confidentiality of Alcohol and Drug Abuse Patient Records regulations: The Federal rules restrict any use of the information to criminally investigate or prosecute any alcohol or drug abuse patient.[facility] the event this information is protected by the Federal Confidentiality of Alcohol and Drug Abuse Patient Records regulations: The Federal rules restrict any use of the information to criminally investigate or prosecute any alcohol or drug abuse patient.[facility] the event this information is protected by the Federal Confidentiality of Alcohol and Drug Abuse Patient Records regulations: The Federal rules restrict any use of the information to criminally investigate or prosecute any alcohol or drug abuse patient.[facility] the event this information is protected by the Federal Confidentiality of Alcohol and Drug Abuse Patient Records regulations: The Federal rules restrict any use of the information to criminally investigate or prosecute any alcohol or drug abuse patient.[facility] the event this information is protected by the Federal Confidentiality of Alcohol and Drug Abuse Patient Records regulations: The Federal rules restrict any use of the information to criminally investigate or prosecute any alcohol or drug abuse patient.[facility] the event this information is protected by the Federal Confidentiality of Alcohol and Drug Abuse Patient Records regulations: The Federal rules restrict any use of the information to criminally investigate or prosecute any alcohol or drug abuse patient.[facility] the event this information is protected by the Federal Confidentiality of Alcohol and Drug Abuse Patient Records regulations: The Federal rules restrict any use of the information to criminally investigate or prosecute any alcohol or drug abuse patient.[facility] the event this information is protected by the Federal Confidentiality of Alcohol and Drug Abuse Patient Records regulations: The Federal rules restrict any use of the information to criminally investigate or prosecute any alcohol or drug abuse patient.[facility] the event this information is protected by the Federal Confidentiality of Alcohol and Drug Abuse Patient Records regulations: The Federal rules restrict any use of the information to criminally investigate or prosecute any alcohol or drug abuse patient.[facility] Hospital[facility] the event this information is protected by the Federal Confidentiality of Alcohol and Drug Abuse Patient Records regulations: The Federal rules restrict any use of the information to criminally investigate or prosecute any alcohol or drug abuse patient.[facility] FOR RECORDS PERTAINING TO PATIENTS WHO [...] BE BASED ON THE PRIMARY CLINICAL RECORDS. [facility]. provides no warranty or guarantee of the accuracy or completeness of information in this document.
== END 2024-01-06 11:19 | disposition home or self-care (01) ==
LOC: US 11:18
PROVIDERS: PCP Nurse Practitioner Family; Visit Provider Nurse Practitioner Family
DX: R00.2 Palpitations (principal); N39.0 Urinary tract infection, site not specified
CPT/HCPCS: 76770; 93242

== ENCOUNTER 2024-01-11 11:24 | Outpatient (REF) | payer BC, SELFPAY ==
[2024-01-11 14:46] LABS: Influenza Virus A Antigen Negative; Influenza Virus B Antigen Negative; Internal Control Within Normal Limits
[2024-01-11 15:46] LABS: SARS-CoV-2 NAA NOT DETECTED (NOT DETECTE)
== END 2024-01-11 11:25 | disposition home or self-care (01) ==
LOC: LAB 11:24
PROVIDERS: PCP Nurse Practitioner Family; Visit Provider Nurse Practitioner Family
DX: J06.9 Acute upper respiratory infection, unspecified (principal)
CPT/HCPCS: 87502; 87635; 87804

== ENCOUNTER 2024-01-24 13:10 | Outpatient (OUT) | payer BC, SELFPAY ==
--- OUTSIDE RECORDS SUMMARY | 2024-01-24 13:22 | XMS_ITS | CCD ---
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 Name Role Phone LEONA MORTENSEN Admitting Unavailable LEONA MORTENSEN Attending Unavailable KEVIN HERRERA Primary Care Unavailable KEVIN HERRERA Referring Unavailable MA Procedure Practitioner Unavailab ORESTES Cruz Surgeon Unavailable JUDI YOUSSEF Primary Care Physician [phone] DONI Youssef Primary Care Provider DO Conner Griffith Emergency Provider [phone] Jennie Ayon Unavailable MD Jennie Ayon Attending Provider DR JOHNATHAN RUDOLPH Attending Unavailibis RUDOLPH, DR JOHNATHAN Botello Consulting Unavailibis RUDOLPH, DR JOHNATHAN Botello Admitting UnavailJUDI Duran Primary Care Unavailable JUDI YOUSSEF Primary Care Unavailable GARETH Larson, DR GR Attending Unavailable GARETH Larson, DR GR Consulting Unavailable GARETH Larson, DR GR Admitting Unavailable ASHLEE APPLE Consulting Unavailable JUDI YOUSSEF Admitting Unavailable JUDI YOUSSEF Primary Care Unavailable JUDI YOUSSEF Attending Unavailable KATHRIN VANCE Admitting Unavailable JUDI YOUSSEF Primary Care Unavailable KWAME, DR CASSANDRA Chopra Consulting Unavailable KATHRIN VANCE Attending Unavailable ISAAK Larson, DR BROWN Consulting Unavailable KATHRIN VANCE Consulting Unavailable PA, DR NORA Hairston Attending Unavailable PA, DR NORA Hairston Consulting Unavailable JUDI YOUSSEF Primary Care Unavailable PA, DR NORA Hairston Admitting Unavailable GUILLERMO ALLEN Consulting Unavailable SHAIKH Juan Luis DAVIS Admitting Unavailable JUDI YOUSSEF Primary Care Unavailable ALEXIA .DR GUILLERMO Consulting Unavaila SHAIKH Juan Luis Grant Attending Unavailable DR RUSH FALCON Consulting Unavailable BALTAZAR OAKES Consulting Unavailable SHAIKH Juan Luis DAVIS Consulting Unavailable CASSNADRA URBINA Unavailable FAB ., BALTAZAR Admitting Unavailable [...] Attending Unavailable MIKAEL, JUDI Primary Care Unavailable CUHNG WINN Consulting Unavailable PA, DR NORA Hairston [...] Primary Care Unavailable JUDI YOUSSEF Consulting Unavailable Mikael POCKET MARKER-C Judi Joan Primary Care Provider [phone] Gladis DO Conner Ferreira Emergency Provider [phone] DO Pete Thakkar Emergency Provider [facility] Primary Care Provider Rafa Rangel Unavailable Renny Gan Unavailable [phone] Mikael, Judi Jaon Primary Care Unavailable Gladis, Conner M Admitting Unavailable Gladis, Conner M Attending Unavailable Mikael, Judi Joan Primary Care Unavailable Asaad, Imad Admitting Unavailable Asaad, Imad Attending Unavailable Renny Gan Consulting Unavailabl e [facility], Judi Joan Primary Care Unavailable Deann Montalvo Attending Unavailable Alahmad, Alaa Admitting Unavailable Mikael, Judi Joan Primary Care Unavailable Gladis, Conner M Admitting Unavailable Gladis, Conner M Attending Unavailable Mikael, Judi Joan Primary Care Unavailable Pete Thakkar A Admitting Unavailable Pete Thakkar Attending Unavailable Samuel Estrella Attending Unavailable Monique Marquez Attending Unavailable Anai REAGAN Attending Unavailable Zabrina Patton Attending Unavailable MARQUES BRADLEY Referring Unavailable PAVLOCK, [facility] Primary Care Unavailable PAVLOCK, [facility] Primary Care Unavailable KROH, MARQUES Patel Referring Unavailable KROH, MARQUES Patel Attending Unavailable IMER CHERRY Referring Unavailable PAVLOCK, [facility] Primary Care Unavailable PAVLOCK, [facility] Primary Care Unavailable KROH, MARQUES D Referring Unavailable KAITLYN TORRES Attending Unavailable KROH, MARQUES Patel Referring Unavailable PAVLOCK, [facility] Primary Care Unavailable MELISSA MONTALVO Attending Unavailable KROH, MARQUES D Referring Unavailable PAVLOCK, [facility] Primary Care Unavailable SLY HEART Attending Unavailable KROHMARQUES Referring Unavailable PAVLOCK, [facility] Primary Care Unavailable BRENNEN SHAW Attending Unavailable Allergies Allergy Classification Reported Allergen(s) Allergy Type Date of Onset Reaction(s) Facility (5 sources) cyclobenzaprine; Translations: [CYCLOBENZAPRINE] Drug Allergy 04-28-20 18 Swelling of Lip/Tongue/Thr oat [facility] Repository (6 sources) Penicillins Drug allergy (disorder) 09-02-20 15 Rash [facility] Repository (20 sources) cyclobenzaprine; Translations: [cyclobenzaprine] Drug Allergy 04-28-20 18 Pharyngeal swelling (finding), Swelling [facility] (20 sources) Penicillin; Translations: [penicillin] Drug Allergy 04-28-20 18 Swelling (morphologic abnormality), Swelling [facility] (8 sources) penicillAMINE Drug Allergy rash [facility] Other (2 sources) cyclobenzaprine Drug Allergy 03-23-20 16 [facility] Repository (1 source) traMADol Drug Allergy [facility] Repository (1 source) traMADol Drug Allergy [facility] Repository (1 source) cyclobenzaprine Drug Allergy 03-23-20 23 [facility] Repository (1 source) Penicillins Drug allergy (disorder) 03-23-20 23 [facility] Repository Medications Current Medications Medication Drug Class(es) [...] # 120 cap(s), Refills(s) 11, Pharmacy: [facility]/pharmacy #[id number], 170, cm, 05/05/21 14:15:00 EDT, Height/Length Dosing, 83.1, kg, 05/05/21 14:15:00 EDT, Weight Dosing Start Date: 05/05/21 Stop Date: 04/30/22 Status: Ordered Start: 09-20-2020 take 2 capsules by m outh four times daily Bentyl 10 mg Cap 20 mg = 2 cap(s), Oral, QID, # 20 cap(s), Refills(s) 0, Pharmacy: [facility]/pharmacy #[id number], 170, cm, 09/20/20 [...] # 90 tab(s), Refills(s) 0, Pharmacy: [facility]/pharmacy #[id number], 170, cm, 01/28/22 [...] # 20 tab(s), Refills(s) 0, Pharmacy: [facility]/pharmacy #[id number], 170, cm, 02/19/23 [...] # 90 cap(s), Refills(s) 1, Pharmacy: [facility]/pharmacy #[id number], 170, cm, 04/14/22 [...] # 90 cap(s), Refills(s) 3, Pharmacy: [facility]/pharmacy #[id number], 170, cm, 01/11/22 9:17:00 EDT, Height/Length Dosing, 83, kg, 01/11/22 9:17:00 EDT, Weight Dosing Start Date: 01/11/22 Status: Ordered omeprazole 40 mg Cap-DR (1 source) Start: 2 End: 2 take 1 capsule by mouth once daily omeprazole 40 mg Cap-DR 40 mg = 1 cap(s), Oral, Daily, X 90 day(s), # 90 cap(s), Refills(s) 0, Pharmacy: [facility]/pharmacy #[id number], 170, cm, 01/28/22 [...] by mouth twice daily. polyethylene glycol 3350 85774 mg powder for oral solution (1 source) Osmotic Laxative Start: 3 Polyethylene Glycol 3350 (Miralax) 17 gram Powder In Packet Active 17 GM PO Daily February 15, 2023 12:00am sucralfate 1000 mg oral tablet (7 sources) Aluminum Complex Start: 3 take 1 tablet by mouth every six hours Sucralfate (Carafate) 1 gram tablet Active 1 GM PO Q6H 56 February 15, 2023 12:00am Start: 02-27-2019 End: [...] # 12 tab(s), Refills(s) 0, Pharmacy: [facility]/pharmacy #[id number], 170, cm, 09/20/20 16:03:00 EST, Height/Length Dosing, 87.5, kg, 09/20/20 16:03:00 EST, Weight Dosing Start Date: 09/20/20 Status: Ordered Completed/Discontinued Medications Medication Drug Class(es) Dates Sig (Normalized) Sig (Original) acetaminophen 325 mg / HYDROcodone bitartrate 5 mg oral tablet (6 sources) Opioid Agonist Start: 06-21-2019 End: 02-15-2023 take 1 tablet by mouth every six hours Hydrocodone-Acetami nophen ([place]) 5-325 mg Tablet Discontinued 1 TAB PO Q6H June 21, 2019 12:00am February 15, 2023 9:46am Start: 11-12-2018 End: 01-30-2019 take 1 tablet by mouth every four to six hours Hydrocodone-Acetaminophen ([place]) 5-325 mg tablet Discontinued 1 TAB PO [...] # 120 tab(s), Refills(s) 0, Pharmacy: [facility]/pharmacy #[id number], 170, cm, 07/22/22 [...] 05-10-2019 Chronic Other aftercare (1 source) Other skilled nursing (current) drug therapy; Translations: [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 Author Type: Anesthesiologist Type: Anesthesia Postprocedure Evaluation Filed: 08/25/2023 5:35 PM Note Text: POST ANESTHESIA EVALUATION NOTE : 1970 Procedure Summary Date: 08/25/23 Room / Location: Gastroenterology Anesthesia Start: 1444 Anesthesia Stop: 155 Procedure: EGD - THERAPEUTIC, EUS, OR TUBE INTERVENTIONS Diagnosis: Gastroparesis (OTHER) Scheduled Providers: Marques Bradley MD; Carlota Jeffrey MD; Deyanira, Vanessa, MUSIC INDUSTRY INTERNSHIP.VALUER Responsible Provider: Carlota Jeffrey MD Anesthesia Type: [...] August 25, 2023 TIME: 5:35 PM CSN: [id number] Normal [facility] ANES PRE-OPon 08-25-2023 ANES PRE-OP HNO ID: [id number] Author: Carlota Jeffrey MD Service: ? Author [...] August 25, 2023 TIME: 11:46 AM CSN: [id number] Normal [facility] HISTORY PHYSICALon HISTORY PHYSICAL HNO ID: [id number] Author: Gavi Bourgeois MD Service: General Surgery [...] DATE: August 25, 2023 TIME: 6:57 AM [facility] NURSING PROGon 08-25-2023 NURSING PROG HNO ID: [id number] Author: Melody Walter RN Service: Nursing Author [...] None Electronically Signed By: Melody Walter RN [facility] NURSING PROG HNO ID: [id number] Author: Pamela Osuna RN Service: ? Author [...] By: Pamela Navarro RN In Department: GASTROENTEROLOGY [facility] Magda 07-22-2023 SHEILA Telephone ([facility]) CONSTANTINO CARDOSO ([id number]) 1970 F Date Time Provider Department 07/22/23 [...] Encounter Status:Closed by EVELYN BLACK on 07/22/23 [facility] ANES POSTPROC EVALon 023 ANES POSTPROC EVAL HNO ID: [id number] Author: Sly Heart MD Service: ? Author [...] July 14, 2023 TIME: 12:26 PM CSN: [id number] Normal [facility] ANES PRE-OPon 07-14-2023 ANES PRE-OP HNO ID: [id number] Author: Sly Heart MD Service: ? Author Type: Anesthesiologist Type: Anesthesia Preprocedure Evaluation Filed: 07/14/2023 9:19 AM Note Text: ANESTHESIOLOGY DAY OF SURGERY NOTE : 1970 Procedure Information Date/Time: 07/14/23929 Scheduled providers: Marques Bradley MD; Amanda Bernard APRN.VALUER; Sly Heart MD Procedure: EGD - THERAPEUTIC, [...] none. Vitals Value Taken Time BP 137/87 07/14/23 0834 Pulse 66 07/14/23833 Resp Temp 36.4 ?C [...] July 14, 2023 TIME: 9:11 AM CSN: [id number] Normal [facility] EGD - THERAPEUTIC, EUS, OR T UBE INTERVENTIONSon 07-14-2023 [facility] HISTORY PHYSICALon HISTORY PHYSICAL HNO ID: [id number] Author: Raúl Quintero MD Service: General Surgery [...] medications for this visit. 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 Mehrdad Heart paged : Patient Constantino Cardoso in post bed 10: Complaining of 10/10 abdominal pain (gas), mild nausea. Any further orders? Thanks! Mari Spaulding MERCHANT MILLER Normal [facility] NURSING PROG HNO ID: [id number] Author: Mónica Spaulding RN Service: Nursing Author [...] Signed By: Mónica Spaulding RN BSN Normal [facility] NURSING PROG HNO ID: [id number] Author: Candace Jaramillo RN Service: ? Author [...] Candace Jaramillo RN In Department: GASTROENTEROLOGY Normal [facility] SURGICAL PATHOLOGYon 023 ADDENDUM 1: Normal [facility] Comment on above: Order Comment: Speci men Type: TISSUE SPECIMENOrdering Facility: [facility] Address: [address] [place] [address] Result Comment: Give n the background of chronic gastritis a Helicobacter pylori immunostain was performed on block A and is negative for Helicobacter pylori organisms. AEB 07/20/2023 Laboratory Developed Test (LDT) Disclaimer: Performance characteristics of immunohistochemical, immunofluorescent and chromogenic in-situ hybridization tests have been determined by the performing laboratory within [facility]???s Orestes Li Pathology and Laboratory [facility] [place] ([facility], [facility], [facility], [facility], [facility], [facility], or [facility]) in a [...] at 9:30 AM Performed By: #### S ####[facility] LABCLIA [id number] [place] [address] [place] CASE REPORT Normal [facility] Comment on above: Order Comment: Speci men Type: TISSUE SPECIMENOrdering Facility: [facility] Address: [address] [place] [address] Result Comment: Surg [facility] Pathology Report Case: [id number] Authorizing Provider: Marques Bradley MD Collected: 07/14/2023 10:42 AM Ordering Location: Gastroenterology Received: 07/14/2023 07:34 PM Pathologist: Marilou Zacarias MD Specimen: STOMACH BIOPSY, R/O H.Pylori Performed By: #### S ####[facility] LABCLIA [id number] [address] [place] DIAGNOSIS COMMENT Immunohistochemical stain for Helicobacter pylori is pending and will be reported as an addendum. Normal [facility] Comment on above: Order Comment: Speci men Type: TISSUE SPECIMENOrdering Facility: [facility] Address: [address] [place] [address] Performed By: #### S ####[facility] LABCLIA [id number] [address] [place] FINAL DIAGNOSIS Normal [facility] Comment on above: Order Comment: Speci men Type: TISSUE SPECIMENOrdering Facility: [facility] Address: [address] [place] [address] Result Comment: Velma scott, biopsy: - Chronic inactive gastritis. See comment. AEB/dkclementina 07/18/2023 Performed By: #### S ####[facility] LABCLIA [id number] [place] [address] [place] FINAL PERFORMING LAB Normal [facility] Comment on above: Order Comment: Speci men Type: TISSUE SPECIMENOrdering Facility: [facility] Address: [address] [place] [address] Result Comment: Diag nostic interpretation performed at [facility], [facility] [place] [address] CLIA# [id number] Classified Advertising Manager: Maurisio Ritchie M.D. Performed By: #### S ####[facility] LABCLIA [id number] [address] [place] GROSS DESCRIPTION [facility] Comment on above: Order Comment: Speci men Type: TISSUE SPECIMENOrdering Facility: [facility] Address: [address] [place] [address] Result Comment: A. S TOMACH BIOPSY Received in formalin are two pieces of hager, soft tissue aggregating to 0.5 x 0.2 x 0.2 cm. Totally submitted in one cassette. Two Gross examination performed at [facility], [address] [place] [address] July 14, 2023 11:10 PM Performed By: #### S ####[facility] LABCLIA [id number] [address] [place] Lipase Levelon 06-06-2023 Lipase [Catalytic activity/Vol] 33 U/L Normal 13-[address] [facility] Comment on above: Performed By: #### 2 [id number] ####[facility] [address] [place] [address] [facility] CONSTANT[facility] CARDOSO ([id number]) 1970 F Date Time Provider Department 05/27/23 EVELYN BLCAK During your visit today, we recorded the following information about you: HamEvelyn stearns RN 05/27/2023 9:45 AM Signed BMI SPECIALTY [...] Status:Closed by EVELYN BLACK on 05/27/23 Normal [facility] NM GASTRIC EMPTYING SOLIDon 05-26-2023 NM GASTRIC EMPTYING SOLID * * *Final Report* * * DATE OF EXAM: May 26 2023 11:11AM Jorge L 0017 - NM GASTRIC EMPTYING SOLID / [...] RATE OF GASTRIC EMPTYING OF SOLID MEAL. Control Operator: MELINDA Transcribe Date/Time: May 26 2023 11:18A Dictated by : SILVANO WELSH MD This examination was interpreted and the report reviewed and electronically signed by: SILVANO WELSH MD on May 26 2023 11:18AM EST [id number] Normal [facility] CNNURSEon 05-25-2023 CNNURSE Nurse Visit (GASTMN) CONSTANTINO CARDOSO ([id number]) 1970 F Date Time Provider Department 05/25/23 8:30 AM NURSE GI LAB 2 GASTMN During your visit today, we recorded the following information about you: Pedro Gonzalez LPN 05/25/2023 4:15 PM Signed Name: Constantino Cardoso [facility]#: [id number] Date: 05/25/2023 ESOPHAGEAL MANOMETRY TEST Indication: Nausea [...] .Pedro Gonzalez LPN Referring Provider: MARQUES BRADLEY [[id number]] Allergies As of Date: 05/25/2023 Noted Allergy Reaction FLEXERIL (CYCLOBENZAPRINE) 04/28/2018 7 - Swelling PENICILLIN 04/28/2018 7 - Swelling Date Reviewed: 05/06/2023 Reviewed by: Judy Michaels MA - Fully Assessed Reason for Visit: Procedure [88] Cmt: Manometry Esophageal Visit Diagnosis:Nausea [R11.0] Order(s):MANOMETRY ESOPHAGEAL [95345QVV] Order #: [id number] Prescriptions as of 05/25/2023 - dicyclomine (BENTYL) [...] Encounter Status:Closed by PEDRO GONZALEZ on 05/25/23 [facility] Magda 05-16-2023 CNPN Telephone (GENBMI) CONSTANTINO CARDOSO ([id number]) 1970 F Date Time Provider Department 05/16/23 EVELYN BLACK During your visit today, we recorded the following information about you: Evelyn Black, VICKY 05/16/2023 12:10 PM Signed BMI SPECIALTY CARE [...] Encounter Status:Closed by EVELYN BLACK on 05/16/23 [facility] Yuko 05-06-2023 CNOV Office Visit (GENBMI ) CONSTANTINO CARDOSO ([id number]) 1970 F Date Time Provider Department 05/06/23 [...] for internal providers or letter via the [employer] for external providers. Chief Complaint: [...] Time: 8:15 AM Referring Provider: IMER CHERRY [[id number]] Allergies As of Date: 05/06/2023 Noted Allergy Reaction (more content not included)... Normal [facility] CNPNon 05-02-2023 CNPN Telephone (GENBMI) CONSTANTINO CARDOSO ([id number]) 1970 F Date Time Provider Department 05/02/23 EVELYN BLACKI During your visit today, we recorded the following information about you: Evelyn Black, RN 05/04/2023 1:55 PM Addendum BMI SPECIALTY CARE COORDINATION TELEPHONE ENCOUNTER Chief complaint AND duration dysphagia. Type of procedure: hernia repair hiatal with Dr. MORTENSEN in [place] February of 2019. Sending OP notes Nursing assessment (subjective/objective) . pain in chest area and getting worse, hard to breathe c/o nausea and oral intolerance, using miralax for BM Went to [facility] ED March 2023 who told her she needed a stent in her heart..but her c/o were difficulty swallowing and sent pt home and referred her to [facility] and was admitted for almost a week [...] HHR a year later @ OSH in [place] Recommendation: appt after records obtained, encouraged small [...] Encounter Status:Closed by EVELYN BLACK on 05/02/[address] [facility] CNPN Telephone (GENBMI) CONSTANTINO CARDOSO ([id number]) 1970 F Date Time Provider Department 04/26/23 EVELYN BLACK GENI During your visit today, we recorded the following information about you: Evelyn Black RN 04/26/2023 2:01 PM Signed BMI SPECIALTY [...] Encounter Status:Closed by EVELYN BLACK on 04/26/[address] [facility] CNPN Telephone (GENBMI) CONSTANTINO CARDOSO ([id number]) 1970 F Date Time Provider Department 04/18/23 EVELYN BLACK GENBMI During your visit today, we recorded the following information about you: Evelyn lBack, RN 04/18/2023 2:17 PM Signed BMI SPECIALTY CARE COORDINATION TELEPHONE ENCOUNTER Contacted pt regarding a referral from Dr Martinez's office. LVM and call back number. 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 [2564] Prescriptions as of 04/18/2023 - ciprofloxacin HCl [...] by EVELYN BLACK on 04/18/23 [facility] Magda 04-07-2023 CNPN Telephone (GASTSP) CONSTANTINO CARDOSO ([id number]) 1970 F Date Time Provider Department 04/07/23 GUILLERMO MARTINEZ [facility] During your visit today, we recorded [...] Encounter Status:Closed by YANCY LOPEZ on 04/07/23 [facility] NM gastric emptying studyon 03-31-2023 NM gastric emptying study [facility] [place] [address] [place] [address] Nuclear Medicine Report Signed Patient: Constantino Cardoso MR#: [id number] : 1970 Acct:[id number] Age/Sex: 52 / F ADM Date: 03/26/23 Loc: Room: [address] [place] [address] Type: ADM IN Attending Dr: Deann Montalvo [...] Samuel Stone M.D.03/31/2023 10:03 AM Dictation Location: [place] [address] Transcribed By: [facility] 03/31/23 1003 Dictated By: Samuel Stone DO 03/31/23 0956 Signed By: 03/31/23 1003 [facility] Comprehensive Metabolic Pane miranda 03-29-2023 Albumin [Mass/Vol] 3.8 g/dL Normal 3.5-5.7 [facility] Comment on above: Performed By: #### C STELLA, CMP #### [facility] [address] [place] [address] [place] Albumin/Globulin [Mass ratio] 1.4 {ratio} Normal [facility] Comment on above: Performed By: #### C STELLA, CMP #### [facility] [address] [place] [address] [place] ALP [Catalytic activity/Vol] 102 U/L Normal 34-104 [facility] Comment on above: Performed By: #### C BCNO, CMP #### [facility] [address] [place] [id number] [place] ALT [Catalytic activity/Vol] 10 U/L Normal 7-52 [facility] Comment on above: Performed By: #### C BCNO, CMP #### [facility] [address] [place] [address] [place] Anion gap [Moles/Vol] 10.4 mmol/L Normal 6.0-15.0 [facility] Comment on above: Performed By: #### C BCNO, CMP #### [facility] [address] [place] [address] [place] AST [Catalytic activity/Vol] 14 U/L Normal 13-39 [facility] Comment on above: Performed By: #### C BCNO, CMP #### [facility] [address] [place] [address] [place] Bilirubin [Mass/Vol] 0.5 mg/dL Normal 0.3-1.0 [facility] Comment on above: Performed By: #### C BCNO, CMP #### [facility] [address] [place] [address] [place] Calcium [Mass/Vol] 9.0 mg/dL Normal 8.6-10.3 [facility] Comment on above: Performed By: #### C BCNO, CMP #### [facility] [address] [place] [address] [place] Chloride [Moles/Vol] 103 mmol/L Normal 98-107 [facility] Comment on above: Performed By: #### C BCNO, CMP #### [facility] [address] [place] [id number] [place] CO2 [Moles/Vol] 28.4 mmol/L Normal 21.0-31.0 [facility] Comment on above: Performed By: #### C BCNO, CMP #### [facility] [address] [place] [id number] [place] Creatinine [Mass/Vol] 0.67 mg/dL Normal 0.60-1.20 [facility] Comment on above: Performed By: #### C BCNO, CMP #### [facility] [address] [place] [id number] [place] Creatinine Clr Calc Pharmacy 106.18 Normal [facility] Comment on above: Result Comment: PERF ORMED BY: [place] [address] PATHOLOGIST AUTO HAULER ROOSEVELT KEYES M.D. Performed By: #### C STELLA, CMP #### [place] [address] [place] GFR/1.73 sq M.predicted MDRD (S/P/Bld) [Vol rate/Area] mL/min/{1.73_m2} [facility] Comment on above: Performed By: #### C STELLA, CMP #### [place] [address] [place] Globulin (S) [Mass/Vol] 2.7 g/dL [facility] Comment on above: Performed By: #### C STELLA, CMP #### [address] Glucose [Mass/Vol] 96 mg/dL Normal 70-100 [facility] Comment on above: Result Comment: [place] Glucose Reference Range is dependent on time and content of last meal. Glucose of more than 200 mg/dL in a nonstressed, ambulatory subject supports the diagnosis of Diabetes Mellitus. ADA recommended reference range Performed By: #### C STELLA, CMP #### [place] [address] [place] Potassium [Moles/Vol] 3.8 mmol/L Normal 3.5-5.1 [facility] Comment on above: Performed By: #### C STELLA, CMP #### [place] [address] [place] Protein [Mass/Vol] 6.5 g/dL Normal 6.4-8.9 [facility] Comment on above: Performed By: #### C STELLA, CMP #### [place] [address] [place] Sodium [Moles/Vol] 138 mmol/L Normal 136-145 [facility] Comment on above: Performed By: #### C STELLA, CMP #### [place] [address] [place] Urea nitrogen [Mass/Vol] 8 mg/dL Normal 7-25 [facility] Comment on above: Performed By: #### C BCNO, [facility] #### [place] [address] [place] [id number] [facility] [place] esophagus ugion 3 [place] esophagus ugi [facility] [address] [place] [address] [place] [id number] Fluoroscopy Report Signed Patient: Constantino Cardoso MR#: [id number] : 1970 Acct:[id number] Age/Sex: 52 / F ADM Date: 03/26/23 Loc: Room: [address] [place] [address] Type: ADM IN Attending Dr: Deann Montalvo MD Copies to: MD Deann Blue MD Ordering Provider: Renny Gan MD Date of Service: 03/29/23 FL/FL esophagus ugi: NAUSEA DOUBLE CONTRAST UPPER GI SERIES CLINICAL HISTORY: Nausea vomiting. History of Ramiro fundoplication. COMPARISON: None TECHNIQUE: Double contrast upper GI series was performed. Cumulative Air Kerma in mGy: 305.03 mGy FINDINGS: Scrip Clerk image demonstrates no acute findings. The esophagus [...] Bateman Jr., D.O.03/29/2023 1:23 PM Dictation Location: [place] [address] Transcribed By: [facility] 03/29/23 1323 Dictated By: Tiburcio Bateman Jr, DO 03/29/23 1317 Signed By: 03/29/23 1323 Normal [facility] Hemogram CBC Without Diffon 03-29-2023 Erythrocyte distribution width (RBC) [Ratio] 13.4 % Normal 11.9-15.3 [facility] Comment on above: Performed By: #### C BCTED, CMP #### [place] [address] Hematocrit (Bld) [Volume fraction] 35.4 % Normal 34.0-46.4 [facility] Comment on above: Performed By: #### C BCTED, CMP #### [address] Hemoglobin (Bld) [Mass/Vol] 12.0 g/dL Normal 11.8-15.4 [facility] Comment on above: Performed By: #### C BCTED, CMP #### [address] MCH (RBC) [Entitic mass] 29.2 pg Normal 24.7-34.3 [facility] Comment on above: Performed By: #### C BCTED, CMP #### [address] MCV (RBC) [Entitic vol] 86.0 fL Normal 80-100 [facility] Comment on above: Performed By: #### C BCTED, CMP #### [address] Mean Corpuscular HGB Conc 33.9 g/dL Normal 32.0-35.0 [facility] Comment on above: Performed By: #### C BCTED, CMP #### [address] Platelet mean volume (Bld) [Entitic vol] 7.6 fL Normal 6.3-10.7 [facility] Comment on above: Result Comment: PERF ORMED BY: [place] [address] PATHOLOGIST [employer]O HAULER ROOSEVELT KEYES M.D. Performed By: #### C STELLA, CMP #### [address] [address] [place] Platelets (Bld) [#/Vol] 288 10*3/uL Normal 150-450 [facility] Comment on above: Performed By: #### C BCNO, CMP #### [facility] [address] RBC (Bld) [#/Vol] 4.11 10*6/uL Normal 3.60-5.00 [facility] Comment on above: Performed By: #### C BCNO, CMP #### [facility] [address] WBC (Bld) [#/Vol] 6.5 10*3/uL Normal 3.8-11.6 [facility] Comment on above: Performed By: #### C BCNO, CMP #### [facility] [address] [place] [address] XR abdomen min 2Von 03-28-20 XR abdomen min 2V [facility] [address] [place] [address] [place] [address] XRay Report Signed Patient: Constantino Cardoso MR#: [id number] : 1970 Acct:[id number] Age/Sex: 52 / F ADM Date: 03/26/23 Loc: Room: [address] [place] [address] Type: ADM IN Attending Dr: Deann Montalvo [...] seen. Impression dictated by: Tiburcio Bateman Jr., D.ONeo03/28/2023 12:24 PM Dictation Location: [place] [address] Transcribed By: [facility] 03/28/23 1224 Dictated By: Tiburcio Bateman Jr, DO 03/28/23 1223 Signed By: 03/28/23 1224 Normal [facility] Complete Blood Count Auto Di ffon 03-27-2023 Basophils (Bld) [#/Vol] 0.0 10*3/uL Normal 0.0-0.2 [facility] Comment on above: Result Comment: PERF ORMED BY: [place] [address] PATHOLOGIST AUTO HAULER ROOSEVELT KEYES M.D. Performed By: #### C BC #### [address] Basophils/100 WBC (Bld) 0.5 % Normal . [facility] Comment on above: Performed By: #### C BC #### [address] Eosinophils (Bld) [#/Vol] 0.2 10*3/uL Normal 0.0-0.45 [facility] Comment on above: Performed By: #### C BC #### [address] Eosinophils/100 WBC (Bld) 4.7 % Normal . [facility] Comment on above: Performed By: #### C BC #### [address] Erythrocyte distribution width (RBC) [Ratio] 13.6 % Normal 11.9-15.3 [facility] Comment on above: Performed By: #### C BC #### [address] Hematocrit (Bld) [Volume fraction] 34.1 % Normal 34.0-46.4 [facility] Comment on above: Performed By: #### C BC #### [address] Hemoglobin (Bld) [Mass/Vol] 11.4 g/dL Low 11.8-15.4 [facility] Comment on above: Performed By: #### C BC #### [place] [id number] [place] Lymphocytes (Bld) [#/Vol] 1.3 10*3/uL Normal 1.00-4.8 [facility] Comment on above: Performed By: #### C BC #### [address] Lymphocytes/100 WBC (Bld) 32.8 % Normal . [facility] Comment on above: Performed By: #### C BC #### [address] MCH (RBC) [Entitic mass] 28.9 pg Normal 24.7-34.3 [facility] Comment on above: Performed By: #### C BC #### [address] MCV (RBC) [Entitic vol] 86.0 fL Normal 80-100 [facility] Comment on above: Performed By: #### C BC #### [address] Mean Corpuscular HGB Conc 33.6 g/dL Normal 32.0-35.0 [facility] Comment on above: Performed By: #### C BC #### [address] Monocytes (Bld) [#/Vol] 0.3 10*3/uL Normal 0.0-0.8 [facility] Comment on above: Performed By: #### C BC #### [address] Monocytes/100 WBC (Bld) 7.7 % Normal . [facility] Comment on above: Performed By: #### C BC #### [address] Neutrophils (Bld) [#/Vol] 2.1 10*3/uL Normal 1.8-7.7 [facility] Comment on above: Performed By: #### C BC #### [address] Neutrophils/100 WBC (Bld) 54.3 % Normal . [facility] Comment on above: Performed By: #### C BC #### [place] [address] NRBC% 0.1 /100{WBC} Normal 0-0.5 [facility] Comment on above: Performed By: #### C BC #### [place] [address] Platelet mean volume (Bld) [Entitic vol] 7.8 fL Normal 6.3-10.7 [facility] Comment on above: Performed By: #### C BC #### [address] Platelets (Bld) [#/Vol] 291 10*3/uL Normal 150-450 [facility] Comment on above: Performed By: #### C BC #### [address] RBC (Bld) [#/Vol] 3.97 10*6/uL Normal 3.60-5.00 [facility] Comment on above: Performed By: #### C BC #### [address] WBC (Bld) [#/Vol] 3.9 10*3/uL Normal 3.8-11.6 [facility] Comment on above: Performed By: #### C BC #### [address] Comprehensive Metabolic Pane miranda 03-27-2023 Albumin [Mass/Vol] 3.5 g/dL Normal 3.5-5.7 [facility] Comment on above: Performed By: #### H EPATIC, CBC, BMP, LIPASE #### [address] Albumin/Globulin [Mass ratio] 1.4 {ratio} Normal [facility] Comment on above: Performed By: #### H EPATIC, CBC, BMP, LIPASE #### [address] ALP [Catalytic activity/Vol] 91 U/L Normal 34-104 [facility] Comment on above: Performed By: #### H EPATIC, CBC, BMP, LIPASE #### [address] ALT [Catalytic activity/Vol] 10 U/L Normal 7-52 [facility] Comment on above: Performed By: #### H EPATIC, CBC, BMP, LIPASE #### [address] Anion gap [Moles/Vol] 6.9 mmol/L Normal 6.0-15.0 [facility] Comment on above: Performed By: #### H EPATIC, CBC, BMP, LIPASE #### [address] AST [Catalytic activity/Vol] 13 U/L Normal 13-39 [facility] Comment on above: Performed By: #### H EPATIC, CBC, BMP, LIPASE #### [address] Bilirubin [Mass/Vol] 0.5 mg/dL Normal 0.3-1.0 [facility] Comment on above: Performed By: #### H EPATIC, CBC, BMP, LIPASE #### [address] Calcium [Mass/Vol] 8.6 mg/dL Normal 8.6-10.3 [facility] Comment on above: Performed By: #### H EPATIC, CBC, BMP, LIPASE #### [address] Chloride [Moles/Vol] 109 mmol/L High 98-107 [facility] Comment on above: Performed By: #### H EPATIC, CBC, BMP, LIPASE #### [address] CO2 [Moles/Vol] 28.9 mmol/L Normal 21.0-31.0 [facility] Comment on above: Performed By: #### H EPATIC, CBC, BMP, LIPASE #### [address] Creatinine [Mass/Vol] 0.72 mg/dL Normal 0.60-1.20 [facility] Comment on above: Performed By: #### H EPATIC, CBC, BMP, LIPASE #### [address] Creatinine Clr Calc Pharmacy 97.02 [facility] Comment on above: Performed By: #### H EPATIC, CBC, BMP, LIPASE #### [address] GFR/1.73 sq M.predicted MDRD (S/P/Bld) [Vol rate/Area] mL/min/{1.73_m2} [facility] Comment on above: Performed By: #### H EPATIC, CBC, BMP, LIPASE #### [address] Globulin (S) [Mass/Vol] 2.5 g/dL [facility] Comment on above: Performed By: #### H EPATIC, CBC, BMP, LIPASE #### [address] Glucose [Mass/Vol] 104 mg/dL High 70-100 [facility] Comment on above: Result Comment: [place] Glucose Reference Range is dependent on time and content of last meal. Glucose of more than 200 mg/dL in a nonstressed, ambulatory subject supports the diagnosis of Diabetes Mellitus. ADA recommended reference range Performed By: #### H EPATIC, CBC, BMP, LIPASE #### [address] Potassium [Moles/Vol] 3.8 mmol/L Normal 3.5-5.1 [facility] Comment on above: Performed By: #### H EPATIC, CBC, BMP, LIPASE #### [address] Protein [Mass/Vol] 6.0 g/dL Low 6.4-8.9 [facility] Comment on above: Performed By: #### H EPATIC, CBC, BMP, LIPASE #### [address] [place] [address] [facility] Sodium [Moles/Vol] 141 mmol/L Normal 136-145 [facility] Comment on above: Performed By: #### H EPATIC, CBC, BMP, LIPASE #### [place] [address] [place] [id number] [facility] Urea nitrogen [Mass/Vol] 10 mg/dL Normal 7-25 [facility] Comment on above: Performed By: #### H EPATIC, CBC, BMP, LIPASE #### [place] [address] [place] [id number] [facility] Lipaseon 03-27-2023 Lipase [Catalytic activity/Vol] 14.0 U/L Normal 11.0-82.0 [facility] Comment on above: Result Comment: PERF ORMED BY: [place] [address] PATHOLOGIST AUTO HAULER ROOSEVELT KEYES M.D. Performed By: #### H EPATIC, CBC, BMP, LIPASE #### [place] [id number] [facility] Magnesiumon 03-27-2023 Magnesium [Mass/Vol] 1.8 mg/dL Low 1.9-2.7 [facility] Comment on above: Performed By: #### H EPATIC, CBC, BMP, LIPASE #### [place] [id number] [facility] CT angio abdomen pelvison CT angio abdomen pelvis [facility] [address] [place] [address] [place] [address] CT Scan Report Signed Patient: Constantino Cardoso MR#: [id number] : 1970 Acct:[id number] Age/Sex: 52 / F ADM Date: 03/26/23 Loc: Room: [address] [place] [address] Type: ADM IN Attending Dr: Raf Steward [...] M.D.03/26/2023 9:41 AM Dictation Location: [place] [address] Transcribed By: [facility] 03/26/23940 Dictated By: Nora Benites II, MD 03/26/23 0935 Signed By: 03/26/2341 [facility] CT angio cheston 03-26-2023 CT angio chest [facility] [address] [place] [address] [place] [address] CT Scan Report Signed Patient: Constantino Cardoso MR#: [id number] : 1970 Acct:[id number] Age/Sex: 52 / F ADM Date: 03/26/23 Loc: Room: [address] [place] [address] Type: ADM IN Attending Dr: Raf Steward [...] M.D.03/26/2023 9:34 AM Dictation Location: [place] [address] Transcribed By: [facility] 03/26/23933 Dictated By: Nora Benites II, MD 03/26/23929 Signed By: 03/26/23933 [facility] Comprehensive Metabolic Pane miranda 03-26-2023 Albumin [Mass/Vol] 3.8 g/dL Normal 3.5-5.7 [facility] Comment on above: Performed By: #### P ORS #### [facility] [address] [place] [address] Albumin/Globulin [Mass ratio] 1.6 {ratio} Normal [facility] Comment on above: Performed By: #### P ORS #### [address] ALP [Catalytic activity/Vol] 105 U/L High 34-104 [facility] Comment on above: Performed By: #### P ORS #### [address] ALT [Catalytic activity/Vol] 11 U/L Normal 7-52 [facility] Comment on above: Performed By: #### P ORS #### [address] Anion gap [Moles/Vol] 9.7 mmol/L Normal 6.0-15.0 [facility] Comment on above: Performed By: #### P ORS #### [address] AST [Catalytic activity/Vol] 14 U/L Normal 13-39 [facility] Comment on above: Performed By: #### P ORS #### [address] Bilirubin [Mass/Vol] 0.4 mg/dL Normal 0.3-1.0 [facility] Comment on above: Performed By: #### P ORS #### [address] Calcium [Mass/Vol] 8.6 mg/dL Normal 8.6-10.3 [facility] Comment on above: Performed By: #### P ORS #### [address] Chloride [Moles/Vol] 107 mmol/L Normal 98-107 [facility] Comment on above: Performed By: #### P ORS #### [address] CO2 [Moles/Vol] 25.3 mmol/L Normal 21.0-31.0 [facility] Comment on above: Performed By: #### P ORS #### [place] [address] Creatinine [Mass/Vol] 0.76 mg/dL Normal 0.60-1.20 [facility] Comment on above: Performed By: #### P ORS #### [place] [address] [place] [address] [place] Creatinine Clr Calc Pharmacy 92.46 [facility] Comment on above: Performed By: #### P ORS #### [address] GFR/1.73 sq M.predicted MDRD (S/P/Bld) [Vol rate/Area] mL/min/{1.73_m2} [facility] Comment on above: Performed By: #### P ORS #### [address] Globulin (S) [Mass/Vol] 2.4 g/dL [facility] Comment on above: Performed By: #### P ORS #### [address] Glucose [Mass/Vol] 122 mg/dL High 70-100 [facility] Comment on above: Result Comment: [facility] Glucose Reference Range is dependent on time and content of last meal. Glucose of more than 200 mg/dL in a nonstressed, ambulatory subject supports the diagnosis of Diabetes Mellitus. ADA recommended reference range Performed By: #### P ORS #### [address] Potassium [Moles/Vol] 4.0 mmol/L Normal 3.5-5.1 [facility] Comment on above: Performed By: #### P ORS #### [address] Protein [Mass/Vol] 6.2 g/dL Low 6.4-8.9 [facility] Comment on above: Performed By: #### P ORS #### [place] [id number] [place] Sodium [Moles/Vol] 138 mmol/L Normal 136-145 [facility] Comment on above: Performed By: #### P ORS #### [address] Urea nitrogen [Mass/Vol] 12 mg/dL Normal 7-25 [facility] Comment on above: Performed By: #### P ORS #### [address] Drug Screen,Urineon 03-26-20 23 Amphetamine Screen,Urine Negative Normal Negative [facility] Comment on above: Performed By: #### H EPATIC, CBC, BMP, LIPASE #### [address] Barbiturate Screen,Urine Negative Normal Negative [facility] Comment on above: Performed By: #### H EPATIC, CBC, BMP, LIPASE #### [address] Benzodiazepines Screen,Urine Negative Normal Negative [facility] Comment on above: Performed By: #### H EPATIC, CBC, BMP, LIPASE #### [address] Cannabinoid Screen,Urine Negative Normal Negative [facility] Comment on above: Result Comment: Thes e are unconfirmed results and should not be used for legal purposes. Drug Cut-Off Concentration: AMPH 1000 ng/mL HAWA 200 ng/mL ELSA 200 ng/mL COCM 300 ng/mL OP 300 ng/mL PCP 25 ng/mL THC 20 ng/mL PERFORMED BY: [place] [address] PATHOLOGIST AUTO HAULER ROOSEVELT KEYES M.D. Performed By: #### H EPATIC, CBC, BMP, LIPASE #### [address] Cocaine Screen,Urine Negative Normal Negative [facility] Comment on above: Performed By: #### H EPATIC, CBC, BMP, LIPASE #### [address] Opiate Screen,Urine Positive High Negative [facility] Comment on above: Performed By: #### H EPATIC, CBC, BMP, LIPASE #### [facility] [address] Phencyclidine Screen,Urine Negative Normal Negative [facility] Comment on above: Performed By: #### H EPATIC, CBC, BMP, LIPASE #### [facility] [address] [place] [id number] [facility] echo transthoracicon [facility] echo transthoracic [facility] [address] [place] [address] [place] [address] Echocardiogram Signed Patient: Constantino Cardoso MR#: [id number] : 1970 Acct:[id number] Age/Sex: 52 / F ADM Date: 03/26/23 Loc: Room: [address] [place] [address] Type: ADM IN Attending Dr: Raf Steward MD Ordering Provider: Ron Fair MD Date of Service: 03/26/23 [facility] transthoracic: chest pain Copies to: MD Holly Lieberman MD, [facility] BSA: 1.9 m2 BP: 155/86 mmHg [...] MV dec slope: 265.5 cm/sec2 Transcribed By: [facility] Performed At: 03/26/23 0909 Signed By: Holly Castro MD, [facility] 03/26/23 1148 Normal [facility] Hepatic Panelon 03-26-2023 Bilirubin,Indirect 0.3 mg/dL Normal [facility] Comment on above: Performed By: #### P ORS #### [address] Bilirubin.indirect [Mass/Vol] 0.10 mg/dL Normal 0.03-0.18 [facility] Comment on above: Performed By: #### P ORS #### [facility] [address] [place] [address] Lactic Acidon 03-26-2023 Lactate [Moles/Vol] 0.5 mmol/L Normal 0.5-2.2 [facility] Comment on above: Result Comment: PERF ORMED BY: [place] [address] PATHOLOGIST AUTO HAULER ROOSEVELT KEYES M.D. Performed By: #### L ACTIC, HEPATIC, LIPASE, CMP, HS TROP, MG #### [facility] [address] [place] [address] Lipaseon 03-26-2023 Lipase [Catalytic activity/Vol] 8.0 U/L Low 11.0-82.0 [facility] Comment on above: Result Comment: PERF ORMED BY: [place] [address] PATHOLOGIST [employer]O HAULER ROOSEVELT KEYES M.D. Performed By: #### P ORS #### [facility] [address] [place] [address] Magnesiumon 03-26-2023 Magnesium [Mass/Vol] 1.8 mg/dL Low 1.9-2.7 [facility] Comment on above: Performed By: #### P ORS #### [place] [address] [place] [address] [place] Porphyrins,Stoolon 3 Porphyrins,Stool Normal [facility] Comment on above: Result Comment: See report. Scanned copy available in EMR. PERFORMED BY: [place] [address] PATHOLOGIST AUTO HAULER ROOSEVELT KEYES M.D. Performed By: #### P ORS #### [facility] [address] [place] [address] Troponin I High Sensitivityo n 03-26-2023 Troponin I High Sensitivity 13.8 pg/mL Normal 0.0-15.0 [facility] Comment on above: Result Comment: PERF ORMED BY: [place] [address] PATHOLOGIST [employer] HAULER ROOSEVELT KEYES M.D. Performed By: #### H EPATIC, CBC, BMP, LIPASE #### [address] Troponin I High Sensitivity 14.1 pg/mL Normal 0.0-15.0 [facility] Comment on above: Result Comment: PERF ORMED BY: [place] [address] PATHOLOGIST [employer] HAULER ROOSEVELT KEYES M.D. Performed By: #### P ORS #### [facility] [address] [place] [address] Alanine aminotransferase [En zymatic activity/volume] in Serum or PlasmaOrdered By: Pete Thakkar on 03-23-2023 ALT [Catalytic activity/Vol] 11 U/L 7-52 [facility] Albumin [Mass/volume] in Ser um or Plasma by Bromocresol green (BCG) dye binding methoOrdered By: Pete Thakkar on 03-23-2023 Albumin BCG dye [Mass/Vol] 4.1 g/dL 3.5-5.7 [facility] Alkaline phosphatase [Enzyma tic activity/volume] in Serum or PlasmaOrdered By: Pete Thakkar on 03-23-2023 ALP [Catalytic activity/Vol] 115 U/L 34-104 [facility] Aspartate aminotransferase [ Enzymatic activity/volume] in Serum or PlasmaOrdered By: Pete Thakkar on 03-23-2023 AST [Catalytic activity/Vol] 15 U/L 13-39 [facility] Automated erythrocytes count in urine sediment (number/area)Ordered By: Pete Thakkar on 03-23-2023 RBC Auto (Urine sed) [#/Area] 0-1 [HPF] 0-4 [facility] Automated leukocytes count i n urine sediment (number/area)Ordered By: Pete Thakkar on 03-23-2023 WBC Auto (Urine sed) [#/Area] 0-1 [HPF] 0-4 [facility] Basic Metabolic Panelon 03-05 Anion gap [Moles/Vol] 10.1 mmol/L Normal 6.0-15.0 [facility] Comment on above: Performed By: #### H EPATIC, CBC, BMP, LIPASE #### [facility] [address] [place] [address] [place] Calcium [Mass/Vol] 9.0 mg/dL Normal 8.6-10.3 [facility] Comment on above: Performed By: #### H EPATIC, CBC, BMP, LIPASE #### [facility] [address] [place] [address] [place] Chloride [Moles/Vol] 111 mmol/L High 98-107 [facility] Comment on above: Performed By: #### H EPATIC, CBC, BMP, LIPASE #### [facility] [address] [place] [id number] [place] CO2 [Moles/Vol] 24.5 mmol/L Normal 21.0-31.0 [facility] Comment on above: Performed By: #### H EPATIC, CBC, BMP, LIPASE #### [facility] [address] [place] [phone] [place] Creatinine [Mass/Vol] 0.72 mg/dL Normal 0.60-1.20 [facility] Comment on above: Performed By: #### H EPATIC, CBC, BMP, LIPASE #### [facility] [address] Creatinine Clr Calc Pharmacy 105.27 [facility] Comment on above: Performed By: #### H EPATIC, CBC, BMP, LIPASE #### [place] [address] GFR/1.73 sq M.predicted MDRD (S/P/Bld) [Vol rate/Area] mL/min/{1.73_m2} [facility] Comment on above: Performed By: #### H EPATIC, CBC, BMP, LIPASE #### [place] [address] Glucose [Mass/Vol] 79 mg/dL Normal 70-100 [facility] Comment on above: Result Comment: [facility] Glucose Reference Range is dependent on time and content of last meal. Glucose of more than 200 mg/dL in a nonstressed, ambulatory subject supports the diagnosis of Diabetes Mellitus. ADA recommended reference range Performed By: #### H EPATIC, CBC, BMP, LIPASE #### [address] Potassium [Moles/Vol] 3.6 mmol/L Normal 3.5-5.1 [facility] Comment on above: Performed By: #### H EPATIC, CBC, BMP, LIPASE #### [address] Sodium [Moles/Vol] 142 mmol/L Normal 136-145 [facility] Comment on above: Performed By: #### H EPATIC, CBC, BMP, LIPASE #### [facility] [address] Urea nitrogen [Mass/Vol] 24 mg/dL Normal 7-25 [facility] Comment on above: Performed By: #### H EPATIC, CBC, BMP, LIPASE #### [facility] [address] Basophils Auto (Bld) [#/Vol] Ordered By: Pete Thakkar on 03-23-2023 Basophils (Bld) [#/Vol] 0.1 10*3/uL 0.0-0.2 [facility] Basophils/100 WBC Auto (Bld) Ordered By: Pete Thakkar on 03-23-2023 Basophils/100 WBC (Bld) 1.0 % . [facility] Bilirubin Test strip Ql (U)O rdered By: Pete Thakkar on 03-23-2023 Bilirubin Ql (U) Negative Negative [facility] Bilirubin.direct [Mass/volum e] in Serum or PlasmaOrdered By: Pete Thakkar on 03-23-2023 Bilirubin.direct [Mass/Vol] 0.10 mg/dL 0.03-0.18 [facility] Bilirubin.total [Mass/volume ] in Serum or PlasmaOrdered By: Pete Thakkar on 03-23-2023 Bilirubin [Mass/Vol] 0.3 mg/dL 0.3-1.0 [facility] CT abdomen pelvis w conon CT abdomen pelvis w con [facility] [address] CT Scan Report Signed Patient: Constantino Cardoso MR#: [id number] : 1970 Acct:[id number] Age/Sex: 52 / F ADM Date: 03/23/23 Loc: ER Room: Type: [facility] ER Attending Dr: Copies to: Pete [...] Columba Domínguez M.D.03/23/2023 7:47 AM Dictation Location: [place] [address] Transcribed By: [facility] 03/23/23 0747 Dictated By: Columba Domínguez MD 03/23/23 0742 Signed By: 03/23/2347 Normal [facility] Calcium [Mass/volume] in Ser um or PlasmaOrdered By: Pete Thakkar on 03-23-2023 Calcium [Mass/Vol] 9.0 mg/dL 8.6-10.3 [facility] Carbon dioxide, total [Moles /volume] in Serum or PlasmaOrdered By: Pete Thakkar on 03-23-2023 CO2 [Moles/Vol] 24.5 mmol/L 21.0-31.0 [facility] Chloride [Moles/volume] in S cristine or PlasmaOrdered By: Pete Thakkar on 03-23-2023 Chloride [Moles/Vol] 111 mmol/L 98-107 [facility] Color Auto (U)Ordered By: Shoaib Thakkar on 03-23-2023 Color (U) Yellow Yellow [facility] Complete Blood Count Auto Di ffon 03-23-2023 Basophils (Bld) [#/Vol] 0.1 10*3/uL Normal 0.0-0.2 [facility] Comment on above: Result Comment: PERF ORMED BY: [place] [address] PATHOLOGIST AUTO HAULER ROOSEVELT KEYES M.D. Performed By: #### H EPATIC, CBC, BMP, LIPASE #### [address] Basophils/100 WBC (Bld) 1.0 % Normal . [facility] Comment on above: Performed By: #### H EPATIC, CBC, BMP, LIPASE #### [address] Eosinophils (Bld) [#/Vol] 0.3 10*3/uL Normal 0.0-0.45 [facility] Comment on above: Performed By: #### H EPATIC, CBC, BMP, LIPASE #### [address] Eosinophils/100 WBC (Bld) 5.0 % Normal . [facility] Comment on above: Performed By: #### H EPATIC, CBC, BMP, LIPASE #### [address] Erythrocyte distribution width (RBC) [Ratio] 13.6 % Normal 11.9-15.3 [facility] Comment on above: Performed By: #### H EPATIC, CBC, BMP, LIPASE #### [address] Hematocrit (Bld) [Volume fraction] 35.7 % Normal 34.0-46.4 [facility] Comment on above: Performed By: #### H EPATIC, CBC, BMP, LIPASE #### [address] Hemoglobin (Bld) [Mass/Vol] 12.0 g/dL Normal 11.8-15.4 [facility] Comment on above: Performed By: #### H EPATIC, CBC, BMP, LIPASE #### [address] Lymphocytes (Bld) [#/Vol] 2.3 10*3/uL Normal 1.00-4.8 [facility] Comment on above: Performed By: #### H EPATIC, CBC, BMP, LIPASE #### [address] Lymphocytes/100 WBC (Bld) 36.1 % Normal . [facility] Comment on above: Performed By: #### H EPATIC, CBC, BMP, LIPASE #### [address] MCH (RBC) [Entitic mass] 29.2 pg Normal 24.7-34.3 [facility] Comment on above: Performed By: #### H EPATIC, CBC, BMP, LIPASE #### [address] MCV (RBC) [Entitic vol] 86.7 fL Normal 80-100 [facility] Comment on above: Performed By: #### H EPATIC, CBC, BMP, LIPASE #### [address] Mean Corpuscular HGB Conc 33.7 g/dL Normal 32.0-35.0 [facility] Comment on above: Performed By: #### H EPATIC, CBC, BMP, LIPASE #### [address] Monocytes (Bld) [#/Vol] 0.5 10*3/uL Normal 0.0-0.8 [facility] Comment on above: Performed By: #### H EPATIC, CBC, BMP, LIPASE #### [address] Monocytes/100 WBC (Bld) 16.44 % Normal 0.00-20.00 [facility] Comment on above: Performed By: #### H EPATIC, CBC, BMP, LIPASE #### [address] Monocytes/100 WBC (Bld) 7.7 % Normal . [facility] Comment on above: Performed By: #### H EPATIC, CBC, BMP, LIPASE #### [address] Neutrophils (Bld) [#/Vol] 3.2 10*3/uL Normal 1.8-7.7 [facility] Comment on above: Performed By: #### H EPATIC, CBC, BMP, LIPASE #### [address] Neutrophils/100 WBC (Bld) 50.2 % Normal . [facility] Comment on above: Performed By: #### H EPATIC, CBC, BMP, LIPASE #### [address] NRBC% 0.1 /100{WBC} Normal 0-0.5 [facility] Comment on above: Performed By: #### H EPATIC, CBC, BMP, LIPASE #### [address] Platelet mean volume (Bld) [Entitic vol] 7.6 fL Normal 6.3-10.7 [facility] Comment on above: Performed By: #### H EPATIC, CBC, BMP, LIPASE #### [address] Platelets (Bld) [#/Vol] 357 10*3/uL Normal 150-450 [facility] Comment on above: Performed By: #### H EPATIC, CBC, BMP, LIPASE #### [address] RBC (Bld) [#/Vol] 4.12 10*6/uL Normal 3.60-5.00 [facility] Comment on above: Performed By: #### H EPATIC, CBC, BMP, LIPASE #### [address] WBC (Bld) [#/Vol] 6.3 10*3/uL Normal 3.8-11.6 [facility] Comment on above: Performed By: #### H EPATIC, CBC, BMP, LIPASE #### [address] Creatinine [Mass/volume] in Serum or PlasmaOrdered By: Pete Thakkar on 03-23-2023 Creatinine [Mass/Vol] 0.72 mg/dL 0.60-1.20 [facility] Dipstick and Microscopicon 0 03-23-2023 Appearance (U) Clear Normal Clear [facility] Comment on above: Order Comment: Name Collection Type:: Clean-Voided Midstream Performed By: #### P ORS #### [facility] [address] [place] [address] [place] Bacteria,Urine 1+ High None Seen [facility] Comment on above: Order Comment: Name Collection Type:: Clean-Voided Midstream Performed By: #### P ORS #### [facility] [address] [place] [address] [place] Bilirubin,Urine Negative Normal Negative [facility] Comment on above: Order Comment: Name Collection Type:: Clean-Voided Midstream Performed By: #### P ORS #### [facility] [address] [place] [address] [place] Color (U) Yellow Normal Yellow [facility] Comment on above: Order Comment: Name Collection Type:: Clean-Voided Midstream Performed By: #### P ORS #### [facility] [address] [place] [address] [place] Glucose Ql (U) Normal Normal Normal [facility] Comment on above: Order Comment: Name Collection Type:: Clean-Voided Midstream Performed By: #### P ORS #### [facility] [address] [place] [address] [place] Hyaline Casts,Urine None Seen Normal 0-8 [facility] Comment on above: Order Comment: Name Collection Type:: Clean-Voided Midstream Result Comment: PERF ORMED BY: [facility] [address] [place] [address] PATHOLOGIST AUTO HAULER ROOSEVELT KEYES M.D. Performed By: #### P ORS #### [facility] [address] [place] [address] [place] Ketones Ql (U) Negative Normal Negative [facility] Comment on above: Order Comment: Name Collection Type:: Clean-Voided Midstream Performed By: #### P ORS #### [address] Leukocyte esterase Test strip Ql (U) Negative Normal Negative [facility] Comment on above: Order Comment: Name Collection Type:: Clean-Voided Midstream Performed By: #### P ORS #### [address] Nitrite,Urine Negative Normal Negative [facility] Comment on above: Order Comment: Name Collection Type:: Clean-Voided Midstream Performed By: #### P ORS #### [address] Occult Blood,Urine Trace High Negative [facility] Comment on above: Order Comment: Name Collection Type:: Clean-Voided Midstream Result Comment: PERF ORMED BY: [place] [address] PATHOLOGIST AUTO HAULER ROOSEVELT KEYES M.D. Performed By: #### P ORS #### [address] pH (U) 5.0 [pH] Normal 5.0-9.0 [facility] Comment on above: Order Comment: Name Collection Type:: Clean-Voided Midstream Performed By: #### P ORS #### [address] Protein,Urine Negative Normal Negative [facility] Comment on above: Order Comment: Name Collection Type:: Clean-Voided Midstream Performed By: #### P ORS #### [address] RBC LM.HPF (Urine sed) [#/Area] 0 /[HPF] Normal 0-4 [facility] Comment on above: Order Comment: Name Collection Type:: Clean-Voided Midstream Performed By: #### P ORS #### [address] Specificy [place],Urine 1.048 High 1.001-1.030 [facility] Comment on above: Order Comment: Name Collection Type:: Clean-Voided Midstream Performed By: #### P ORS #### [place] [address] Squamous Epithelial Cell,Urine None Seen Normal 0-2 [facility] Comment on above: Order Comment: Name Collection Type:: Clean-Voided Midstream Performed By: #### P ORS #### [facility] [address] Urobilinogen,Urine Normal Normal Normal [facility] Comment on above: Order Comment: Name Collection Type:: Clean-Voided Midstream Performed By: #### P ORS #### [facility] [address] WBC LM.HPF (Urine sed) [#/Area] 0 /[HPF] Normal 0-4 [facility] Comment on above: Order Comment: Name Collection Type:: Clean-Voided Midstream Performed By: #### P ORS #### [facility] [address] [place] [address] Eosinophils Auto (Bld) [#/Vo l]Ordered By: Pete Thakkar on 03-23-2023 Eosinophils (Bld) [#/Vol] 0.3 10*3/uL 0.0-0.45 [facility] Eosinophils/100 WBC Auto (Bl d)Ordered By: Pete Thakkar on 03-23-2023 Eosinophils/100 WBC (Bld) 5.0 % . [facility] Erythrocyte distribution wid th Auto (RBC) [Ratio]Ordered By: Pete Thakkar on 03-23-2023 Erythrocyte distribution width (RBC) [Ratio] 13.6 % 11.9-15.3 [facility] Globulin Calc (S) [Mass/Vol] Ordered By: Pete Thakkar on 03-23-2023 Globulin (S) [Mass/Vol] 2.9 g/dL [facility] Glucose [Mass/volume] in Ser um or PlasmaOrdered [...] [Volume fraction] 35.7 % 34.0-46.4 [facility] Hemoglobin [Mass/volume] in BloodOrdered By: Pete Thakkar on 03-23-2023 Hemoglobin (Bld) [Mass/Vol] 12.0 g/dL 11.8-15.4 [facility] Hepatic Panelon 03-23-2023 Albumin [Mass/Vol] 4.1 g/dL Normal 3.5-5.7 [facility] Comment on above: Performed By: #### H EPATIC, CBC, BMP, LIPASE #### [facility] [address] Albumin/Globulin [Mass ratio] 1.4 {ratio} Normal [facility] Comment on above: Performed By: #### H EPATIC, CBC, BMP, LIPASE #### [facility] [address] ALP [Catalytic activity/Vol] 115 U/L High 34-104 [facility] Comment on above: Performed By: #### H EPATIC, CBC, BMP, LIPASE #### [facility] [address] ALT [Catalytic activity/Vol] 11 U/L Normal 7-52 [facility] Comment on above: Performed By: #### H EPATIC, CBC, BMP, LIPASE #### [facility] [address] AST [Catalytic activity/Vol] 15 U/L Normal 13-39 [facility] Comment on above: Performed By: #### H EPATIC, CBC, BMP, LIPASE #### [facility] [address] [place] [address] [place] Bilirubin [Mass/Vol] 0.3 mg/dL Normal 0.3-1.0 [facility] Comment on above: Performed By: #### H EPATIC, CBC, BMP, LIPASE #### [facility] [address] [place] [address] [place] Bilirubin,Indirect 0.2 mg/dL Normal [facility] Comment on above: Performed By: #### H EPATIC, CBC, BMP, LIPASE #### [address] Bilirubin.indirect [Mass/Vol] 0.10 mg/dL Normal 0.03-0.18 [facility] Comment on above: Performed By: #### H EPATIC, CBC, BMP, LIPASE #### [address] Globulin (S) [Mass/Vol] 2.9 g/dL Normal [facility] Comment on above: Performed By: #### H EPATIC, CBC, BMP, LIPASE #### [address] Protein [Mass/Vol] 7.0 g/dL Normal 6.4-8.9 [facility] Comment on above: Performed By: #### H EPATIC, CBC, BMP, LIPASE #### [address] Ketones Auto test strip (U) [Mass/Vol]Ordered By: Pete Thakkar on 03-23-2023 Ketones (U) [Mass/Vol] Negative Negative [facility] Laboratory - UrinalysisOrder ed By: Pete Thakkar on 03-23-2023 Hyaline casts LM Ql (Urine sed) None seen [LPF] 0-8 [facility] Leukocytes [#/volume] correc jun for nucleated erythrocytes in Blood by Automated counOrdered By: Pete Thakkar on 03-23-2023 WBC corrected for nucl RBC Auto (Bld) [#/Vol] 6.3 10*3/uL 3.8-11.6 [facility] Lipaseon 03-23-2023 Lipase [Catalytic activity/Vol] 32.0 U/L Normal 11.0-82.0 [facility] Comment on above: Result Comment: PERF ORMED BY: [place] [address] PATHOLOGIST AUTO HAULER ROOSEVELT KEYES M.D. Performed By: #### H EPATIC, CBC, BMP, LIPASE #### [address] [place] [address] [facility] Lipase [Enzymatic activity/v olume] in Serum or PlasmaOrdered By: Pete Thakkar on 03-23-2023 Lipase [Catalytic activity/Vol] 32.0 U/L 11.0-82.0 [facility] Lymphocytes Auto (Bld) [#/Vo l]Ordered By: Pete Thakkar on 03-23-2023 Lymphocytes (Bld) [#/Vol] 2.3 10*3/uL 1.00-4.8 [facility] Lymphocytes/100 WBC Auto (Bl d)Ordered By: Pete Thakkar on 03-23-2023 Lymphocytes/100 WBC (Bld) 36.1 % . [facility] MCH Auto (RBC) [Entitic mass ]Ordered By: Pete Thakkar on 03-23-2023 MCH (RBC) [Entitic mass] 29.2 pg 24.7-34.3 [facility] MCHC Auto (RBC) [Mass/Vol]Or dered By: Pete Thakkar on 03-23-2023 MCHC (RBC) [Mass/Vol] 33.7 g/dL 32.0-35.0 [facility] MCV Auto (RBC) [Entitic vol] Ordered By: Pete Thakkar on 03-23-2023 MCV (RBC) [Entitic vol] 86.7 fL 80-100 [facility] Monocyte distribution width [Entitic volume] in Blood by AutomatedOrdered By: Pete Thakkar on 03-23-2023 Monocyte distribution width Auto (Bld) [Entitic vol] 16.44 % 0.00-20.00 [facility] Monocytes Auto (Bld) [#/Vol] Ordered By: Pete Thakkar on 03-23-2023 Monocytes (Bld) [#/Vol] 0.5 10*3/uL 0.0-0.8 [facility] Monocytes/100 WBC Auto (Bld) Ordered By: Pete Thakkar on 03-23-2023 Monocytes/100 WBC (Bld) 7.7 % . [facility] Neutrophils Auto (Bld) [#/Vo l]Ordered By: Pete Thakkar on 03-23-2023 Neutrophils (Bld) [#/Vol] 3.2 10*3/uL 1.8-7.7 [facility] Neutrophils/100 WBC Auto (Bl d)Ordered By: Pete Thakkar on 03-23-2023 Neutrophils/100 WBC (Bld) 50.2 % . [facility] Nitrite Test strip Ql (U)Ord ered By: Pete Thakkar on 03-23-2023 Nitrite Ql (U) Negative Negative [facility] No Panel InformationOrdered By: Pete Thakkar on 03-23-2023 Estimated GFR (CKD-EPI) > 60.0 mL/Min [facility] Creatinine Clearance (Chem 105.27 [facility] Nucleated erythrocytes [Pres ence] in Blood by Automated countOrdered By: Pete Thakkar on 03-23-2023 Nucleated RBC Auto Ql (Bld) 0.1 /100{WBC} 0-0.5 [facility] Platelet mean volume Auto (B ld) [Entitic vol]Ordered By: Pete Thakkar on 03-23-2023 Platelet mean volume (Bld) [Entitic vol] 7.6 fL 6.3-10.7 [facility] Platelets Auto (Bld) [#/Vol] Ordered By: Pete Thakkar on 03-23-2023 Platelets (Bld) [#/Vol] 357 10*3/uL 150-450 [facility] Potassium [Moles/volume] in Serum or PlasmaOrdered By: Pete Thakkar on 03-23-2023 Potassium [Moles/Vol] 3.6 mmol/L 3.5-5.1 [facility] Protein Auto test strip (U) [Mass/Vol]Ordered By: Pete Thakkar on 03-23-2023 Protein (U) [Mass/Vol] Negative Negative [facility] Protein [Mass/volume] in Ser um or PlasmaOrdered By: Pete Thakkar on 03-23-2023 Protein [Mass/Vol] 7.0 g/dL 6.4-8.9 [facility] RBC Auto (Bld) [#/Vol]Ordere d By: Pete Thakkar on 03-23-2023 RBC (Bld) [#/Vol] 4.12 10*6/uL 3.60-5.00 [facility] Serum or plasma albumin/glob ulin mass ratioOrdered By: Pete Thakkar on 03-23-2023 Albumin/Globulin [Mass ratio] 1.4 {ratio} [facility] Serum or plasma anion gap de terminationOrdered By: Pete Thakkar on 03-23-2023 Anion gap [Moles/Vol] 10.1 mmol/L 6.0-15.0 [facility] Serum or plasma non-glucuron idated bilirubin measurement (mass/volume)Ordered By: Pete Thakkar on 03-23-2023 Bilirubin.indirect [Mass/Vol] 0.2 mg/dL [facility] Sodium [Moles/volume] in Ser um or PlasmaOrdered By: Pete Thakkar on 03-23-2023 Sodium [Moles/Vol] 142 mmol/L 136-145 [facility] Specific gravity Auto test s trip (U) [Rel density]Ordered By: Pete Thakkar on 03-23-2023 Specific gravity (U) [Rel density] 1.048 1.001-1.030 [facility] Squamous epithelial cells de tection in urine sediment by light microscopyOrdered By: Pete Thakkar on 03-23-2023 Epithelial cells.squamous LM Ql (Urine sed) None seen [HPF] 0-2 [facility] Troponin I High Sensitivityo n 03-23-2023 Troponin I High Sensitivity 12.2 pg/mL Normal 0.0-15.0 [facility] Comment on above: Result Comment: PERF ORMED BY: [place] [address] PATHOLOGIST AUTO HAULER ROOSEVELT KEYES M.D. Performed By: #### H S TROP #### [address] Troponin I.cardiac [Mass/vol ume] in Serum or Plasma by Detection limit <= 0.01 ng/Ordered By: Pete Thakkar on 03-23-2023 Troponin I.cardiac DL <= 0.01 ng/mL [Mass/Vol] 12.2 pg/mL 0.0-15.0 [facility] Urea nitrogen [Mass/volume] in Serum or PlasmaOrdered By: Pete Thakkar on 03-23-2023 Urea nitrogen [Mass/Vol] 24 mg/dL 7-25 [facility] Urine bacteria detection by automated methodOrdered By: Pete Thakkar on 03-23-2023 Bacteria Auto Ql (U) 1+ None Seen [facility] Urine clarity by refractomet ry automatedOrdered By: Pete Thakkar on 03-23-2023 Clarity Refractometry automated (U) Clear Clear [facility] Urine glucose measurement by automated test strip (mass/volume)Ordered By: Pete Thakkar on 03-23-2023 Glucose Auto test strip (U) [Mass/Vol] Normal mg/dL Normal [facility] Urine hemoglobin detection b y automated test stripOrdered By: Pete Thakkar on 03-23-2023 Hemoglobin Auto test strip Ql (U) Trace Negative [facility] Urine leukocyte esterase det ection by automated test stripOrdered By: Pete Thakkar on 03-23-2023 Leukocyte esterase Auto test strip Ql (U) Negative Negative [facility] Urobilinogen Auto test strip (U) [Mass/Vol]Ordered By: Pete Thakkar on 03-23-2023 Urobilinogen (U) [Mass/Vol] Normal mg/dL Normal [facility] WBC Auto (Bld) [#/Vol]Ordere d By: Pete Thakkar on 03-23-2023 WBC (Bld) [#/Vol] 6.3 10*3/uL 3.8-11.6 [facility] pH Auto test strip (U)Ordere d By: Pete Thakkar on 03-23-2023 pH (U) 5.0 [pH] 5.0-9.0 [facility] Discharge Instructionson Discharge Instructions [id number]#[id number]:127 [facility] Comment on above: Other Comment: wrong folder Prescriptions/Work Noteson 0 03-03-2023 Prescriptions/Work Notes [id number]#[id number]:127 [facility] Consent for Treatmenton 02-03 Consent for Treatment [id number]#1.00CD:127 [facility] Discharge Instructionson Discharge Instructions [id number]#[id number]:[address] [facility] ED Clinical Summaryon 2022 ED Clinical Summary (Inserted Image. Kristin ble to display) [place] [id number] ED Clinical Summary Person Information Name: CONSTANTINO CADROSO/New_Case Age: 52 Years : 1970 Sex: Female Language: Greenlandic PCP: JUDI YOUSSEF CNP Marital Status: Phone: [phone] MRN: Visit Id: Visit Reason: Wrist pain-swelling; [...] 02/19/2023 01:41:18 02/19/2023 01:41:18 ADDRESS: [address] [facility] [id number] PHYS DOC NOTES: MEDICAL INFORMATION: Prescriptions Given: New Medications [id number], [address], [place] [phone], [phone] naproxen (Naprosyn 500 mg Tab) 1 Tablets [...] With: Address: When: JUDI YOUSSEF [address] [place] [phone] Business (1) In 3 days 02/22/2023 Comments: Take the pain medication as prescribed as needed for pain. Please follow-up with your primary care doctor in the next 2 to 3 days for further evaluation management. Please return to the ED for any new or worsening symptoms or DIAGNOSIS: Right wrist sprain Normal [facility] ED Note-Physicianon 02-20-20 ED Note-Physician Basic Information Time Seen: Zabrina Patton DO 02/19/2023 00:51 Chief Complaint states fell yesterday injuring right wrist. was seen at [facility] splint in place. states pain radiating up the arm. taking motrin and tylenol History of Present Illness Patient is a 52-year-old female with past medical history of hypertension gastroparesis presenting to the ED for evaluation of right arm pain. Patient had a fall yesterday was seen at [facility] had x-rays and was told it was [...] and Complexity of Problems Differential Diagnosis: [] [facility] Data External documents reviewed: [] My EKG [...] and elbow are obtained. Patient is given [place] in the ED for pain. X-rays do [...] # 20 tab(s), Refills(s) 0, Pharmacy: [id number], 170, cm, 02/19/23 0:56:00 EDT, Height/Length Dosing, 90.2, kg, 02/19/23 0:56:00 EDT, Weight Dosing XR Elbow 3+ Views Right XR Wrist 3+ Views Right Medications Administered Given [place] 5/325 Tab, 1 tab(s), Oral Disposition Plan Discharge Prescription List Prescriptions Naprosyn 500 mg Tab, 500 mg= 1 tab(s), Oral, BID, PRN Follow-up With When Contact Information JUDI YOUSSEF In 3 days 02/22/2023 EDT [address] [place] [address]- [phone] Business (1) Additional Instructions: Take the pain [...] (03/02/2019), Cholecystectomy, Hernia repair, Hysterectomy. Medications Inpatient [place] 5/325 Tab, 1 tab(s), Oral, Once Home albuterol HFA 90 mcg/inh MDI, 2 pu (more content not included)... Normal [facility] Comment on above: Result Comment: Elec tronically Signed By: Zabrina Patton DO\.br\Date and Time Signed: 06/17/23 01:23 EDT ED Patient Education Noteon 02-19-2023 [...] safe for you. General instructions ? Take [id number] and prescription medicines only as told by [...] (more content not included)... Normal [facility] ED Patient Summaryon 023 ED Patient Summary (Inserted Image. Kristin ble to display) [address] [address] Patient Discharge Instructions Person Information Name: CONSTANTINO CARDOSO Age: 52 Years Arrival Date: 02/19/2023 00:48:45 Discharge Diagnosis: Right wrist sprain Primary Care Physician: JUDI YOUSSEF CNP Provider Information Primary Provider: Zabrina Patton DO Advanced Roll Contour Grinder:None The exam and treatment you received in the Emergency Department were for an urgent problem and are not intended as complete care. It is important that you follow up with a doctor, nurse practitioner, or physician?s city carrier assistant for ongoing care. If your symptoms [...] When: JUDI YOUSSEF [address] [place] [phone] Business (1) In 3 days 02/22/2023 Comments: [...] opioids can be used to help relieve yjoefqfn-[id number] pain and are often prescribed following a [...] (more content not included)... Normal [facility] XR Elbow 3+ Views Righton XR [...] na DAP = na Normal [facility] XR Wrist 3+ Views Righton XR [...] na DAP = na Normal [facility] Activated partial thrombopla stin time (aPTT) in platelet poor plasma by coagulation aOrdered By: Conner Griffith on 02-15-2023 aPTT Coag (PPP) [Time] 37.0 s 25.1-36.5 [facility] Alanine aminotransferase [En zymatic activity/volume] in Serum or PlasmaOrdered By: Conner Griffith on 02-15-2023 ALT [Catalytic activity/Vol] 13 U/L 7-52 [facility] Albumin [Mass/volume] in Ser um or Plasma by Bromocresol green (BCG) dye binding methoOrdered By: Conner Griffith on 02-15-2023 Albumin BCG dye [Mass/Vol] 4.3 g/dL 3.5-5.7 [facility] Alkaline phosphatase [Enzyma tic activity/volume] in Serum or PlasmaOrdered By: Conner Griffith on 02-15-2023 ALP [Catalytic activity/Vol] 124 U/L 34-104 [facility] Aspartate aminotransferase [ Enzymatic activity/volume] in Serum or PlasmaOrdered By: Conner Griffith on 02-15-2023 AST [Catalytic activity/Vol] 15 U/L 13-39 [facility] Basic Metabolic Panelon 02-03 Anion gap [Moles/Vol] 12.6 mmol/L Normal 6.0-15.0 [facility] Comment on above: Performed By: #### H EPATIC, CBC, BMP, LIPASE #### [facility] [address] Calcium [Mass/Vol] 9.3 mg/dL Normal 8.6-10.3 [facility] Comment on above: Performed By: #### H EPATIC, CBC, BMP, LIPASE #### [facility] [address] Chloride [Moles/Vol] 106 mmol/L Normal 98-107 [facility] Comment on above: Performed By: #### H EPATIC, CBC, BMP, LIPASE #### [place] [address] CO2 [Moles/Vol] 25.3 mmol/L Normal 21.0-31.0 [facility] Comment on above: Performed By: #### H EPATIC, CBC, BMP, LIPASE #### [place] [address] Creatinine [Mass/Vol] 0.77 mg/dL Normal 0.60-1.20 [facility] Comment on above: Performed By: #### H EPATIC, CBC, BMP, LIPASE #### [place] [address] [place] Creatinine Clr Calc Pharmacy 98.01 [facility] Comment on above: Performed By: #### H EPATIC, CBC, BMP, LIPASE #### [place] [address] [place] GFR/1.73 sq M.predicted MDRD (S/P/Bld) [Vol rate/Area] mL/min/{1.73_m2} [facility] Comment on above: Performed By: #### H EPATIC, CBC, BMP, LIPASE #### [address] Glucose [Mass/Vol] 94 mg/dL Normal 70-100 [facility] Comment on above: Result Comment: [place] Glucose Reference Range is dependent on time and content of last meal. Glucose of more than 200 mg/dL in a nonstressed, ambulatory subject supports the diagnosis of Diabetes Mellitus. ADA recommended reference range Performed By: #### H EPATIC, CBC, BMP, LIPASE #### [address] Potassium [Moles/Vol] 3.9 mmol/L Normal 3.5-5.1 [facility] Comment on above: Performed By: #### H EPATIC, CBC, BMP, LIPASE #### [place] [address] Sodium [Moles/Vol] 140 mmol/L Normal 136-145 [facility] Comment on above: Performed By: #### H EPATIC, CBC, BMP, LIPASE #### [facility] [address] [place] [address] [place] Urea nitrogen [Mass/Vol] 14 mg/dL Normal 7-25 [facility] Comment on above: Performed By: #### H EPATIC, CBC, BMP, LIPASE #### [facility] [address] [place] [address] [place] Basophils Auto (Bld) [#/Vol] Ordered By: Conner Griffith on 02-15-2023 Basophils (Bld) [#/Vol] 0.0 10*3/uL 0.0-0.2 [facility] Basophils/100 WBC Auto (Bld) Ordered By: Conner Griffith on 02-15-2023 Basophils/100 WBC (Bld) 0.6 % . [facility] Bilirubin.direct [Mass/volum e] in Serum or PlasmaOrdered By: Conner Griffith on 02-15-2023 Bilirubin.direct [Mass/Vol] 0.00 mg/dL 0.03-0.18 [facility] Comment on above: If the DBIL is less than 0.1, IBIL is not able to becalculated. Bilirubin.total [Mass/volume ] in Serum or PlasmaOrdered By: Conner Griffith on 02-15-2023 Bilirubin [Mass/Vol] 0.4 mg/dL 0.3-1.0 [facility] CT abdomen pelvis w conon CT abdomen pelvis w [facility] [address] [place] [address] CT Scan Report Signed Patient: Constantino Cardoso MR#: [id number] : 1970 Acct:[id number] Age/Sex: 52 / F ADM Date: 02/15/23 Loc: ER Room: Type: [facility] ER Attending Dr: Copies to: Conner [...] Columba Domínguez M.D.02/15/2023 9:56 AM Dictation Location: [place] [address] Transcribed By: [facility] 02/15/23 0956 Dictated By: Columba Domínguez MD 02/15/23 0943 Signed By: 02/15/23955 [facility] Calcium [Mass/volume] in Ser um or PlasmaOrdered By: Conner Griffith on 02-15-2023 Calcium [Mass/Vol] 9.3 mg/dL 8.6-10.3 [facility] Carbon dioxide, total [Moles /volume] in Serum or PlasmaOrdered By: Conner Griffith on 02-15-2023 CO2 [Moles/Vol] 25.3 mmol/L 21.0-31.0 [facility] Chloride [Moles/volume] in S cristine or PlasmaOrdered By: Conner Griffith on 02-15-2023 Chloride [Moles/Vol] 106 mmol/L 98-107 [facility] Complete Blood Count Auto Di ffon 02-15-2023 Basophils (Bld) [#/Vol] 0.0 10*3/uL Normal 0.0-0.2 [facility] Comment on above: Result Comment: PERF ORMED BY: [place] [address] PATHOLOGIST AUTO HAULER ROOSEVELT KEYES M.D. Performed By: #### P ORS #### [address] Basophils/100 WBC (Bld) 0.6 % Normal . [facility] Comment on above: Performed By: #### P ORS #### [address] Eosinophils (Bld) [#/Vol] 0.2 10*3/uL Normal 0.0-0.45 [facility] Comment on above: Performed By: #### P ORS #### [address] Eosinophils/100 WBC (Bld) 4.0 % Normal . [facility] Comment on above: Performed By: #### P ORS #### [address] Erythrocyte distribution width (RBC) [Ratio] 13.5 % Normal 11.9-15.3 [facility] Comment on above: Performed By: #### P ORS #### [address] Hematocrit (Bld) [Volume fraction] 38.4 % Normal 34.0-46.4 [facility] Comment on above: Performed By: #### P ORS #### [address] Hemoglobin (Bld) [Mass/Vol] 13.0 g/dL Normal 11.8-15.4 [facility] Comment on above: Performed By: #### P ORS #### [address] Lymphocytes (Bld) [#/Vol] 1.8 10*3/uL Normal 1.00-4.8 [facility] Comment on above: Performed By: #### P ORS #### [address] Lymphocytes/100 WBC (Bld) 33.8 % Normal . [facility] Comment on above: Performed By: #### P ORS #### [address] MCH (RBC) [Entitic mass] 29.4 pg Normal 24.7-34.3 [facility] Comment on above: Performed By: #### P ORS #### [address] MCV (RBC) [Entitic vol] 86.8 fL Normal 80-100 [facility] Comment on above: Performed By: #### P ORS #### [address] Mean Corpuscular HGB Conc 33.8 g/dL Normal 32.0-35.0 [facility] Comment on above: Performed By: #### P ORS #### [address] Monocytes (Bld) [#/Vol] 0.3 10*3/uL Normal 0.0-0.8 [facility] Comment on above: Performed By: #### P ORS #### [address] Monocytes/100 WBC (Bld) 18.21 % Normal 0.00-20.00 [facility] Comment on above: Performed By: #### P ORS #### [address] Monocytes/100 WBC (Bld) 4.8 % Normal . [facility] Comment on above: Performed By: #### P ORS #### [facility] [address] [place] [address] [place] Neutrophils (Bld) [#/Vol] 3.0 10*3/uL Normal 1.8-7.7 [facility] Comment on above: Performed By: #### P ORS #### [address] Neutrophils/100 WBC (Bld) 56.8 % Normal . [facility] Comment on above: Performed By: #### P ORS #### [address] NRBC% 0.2 /100{WBC} Normal 0-0.5 [facility] Comment on above: Performed By: #### P ORS #### [address] Platelet mean volume (Bld) [Entitic vol] 7.3 fL Normal 6.3-10.7 [facility] Comment on above: Performed By: #### P ORS #### [address] Platelets (Bld) [#/Vol] 385 10*3/uL Normal 150-450 [facility] Comment on above: Performed By: #### P ORS #### [address] RBC (Bld) [#/Vol] 4.43 10*6/uL Normal 3.60-5.00 [facility] Comment on above: Performed By: #### P ORS #### [address] WBC (Bld) [#/Vol] 5.2 10*3/uL Normal 3.8-11.6 [facility] Comment on above: Performed By: #### P ORS #### [address] Creatinine [Mass/volume] in Serum or PlasmaOrdered By: Conner Griffith on 02-15-2023 Creatinine [Mass/Vol] 0.77 mg/dL 0.60-1.20 [facility] Eosinophils Auto (Bld) [#/Vo l]Ordered By: Conner Griffith on 02-15-2023 Eosinophils (Bld) [#/Vol] 0.2 10*3/uL 0.0-0.45 [facility] Eosinophils/100 WBC Auto (Bl d)Ordered By: Conner Griffith on 02-15-2023 Eosinophils/100 WBC (Bld) 4.0 % . [facility] Erythrocyte distribution wid th Auto (RBC) [Ratio]Ordered By: Conner Griffith on 02-15-2023 Erythrocyte distribution width (RBC) [Ratio] 13.5 % 11.9-15.3 [facility] Globulin Calc (S) [Mass/Vol] Ordered By: Conner Griffith on 02-15-2023 Globulin (S) [Mass/Vol] 3.0 g/dL [facility] Glucose [Mass/volume] in Ser um or PlasmaOrdered [...] [Volume fraction] 38.4 % 34.0-46.4 [facility] Hemoglobin [Mass/volume] in BloodOrdered By: Conner Griffith on 02-15-2023 Hemoglobin (Bld) [Mass/Vol] 13.0 g/dL 11.8-15.4 [facility] Hepatic Panelon 02-15-2023 Albumin [Mass/Vol] 4.3 g/dL Normal 3.5-5.7 [facility] Comment on above: Performed By: #### P ORS #### [address] Albumin/Globulin [Mass ratio] 1.4 {ratio} Normal [facility] Comment on above: Performed By: #### P ORS #### [address] ALP [Catalytic activity/Vol] 124 U/L High 34-104 [facility] Comment on above: Performed By: #### P ORS #### [address] ALT [Catalytic activity/Vol] 13 U/L Normal 7-52 [facility] Comment on above: Performed By: #### P ORS #### [address] AST [Catalytic activity/Vol] 15 U/L Normal 13-39 [facility] Comment on above: Performed By: #### P ORS #### [address] Bilirubin [Mass/Vol] 0.4 mg/dL Normal 0.3-1.0 [facility] Comment on above: Performed By: #### P ORS #### [address] Bilirubin,Indirect 0.4 mg/dL Normal [facility] Comment on above: Performed By: #### P ORS #### [address] Bilirubin.indirect [Mass/Vol] 0.00 mg/dL Low 0.03-0.18 [facility] Comment on above: Result Comment: If t he DBIL is less than 0.1, IBIL is not able to be calculated. Performed By: #### P ORS #### [address] Globulin (S) [Mass/Vol] 3.0 g/dL Normal [facility] Comment on above: Performed By: #### P ORS #### [address] Protein [Mass/Vol] 7.3 g/dL Normal 6.4-8.9 [facility] Comment on above: Performed By: #### P ORS #### [address] Laboratory - CoagulationOrde red By: Conner Griffith on 02-15-2023 PT Coag (PPP) [Time] 11.7 s 9.0-12.9 [facility] Leukocytes [#/volume] correc jun for nucleated erythrocytes in Blood by Automated counOrdered By: Conner Griffith on 02-15-2023 WBC corrected for nucl RBC Auto (Bld) [#/Vol] 5.2 10*3/uL 3.8-11.6 [facility] Lipaseon 02-15-2023 Lipase [Catalytic activity/Vol] 19.0 U/L Normal 11.0-82.0 [facility] Comment on above: Result Comment: PERF ORMED BY: [place] [address] PATHOLOGIST AUTO HAULER ROOSEVELT KEYES M.D. Performed By: #### H EPATIC, CBC, BMP, LIPASE #### [address] Lipase [Enzymatic activity/v olume] in Serum or PlasmaOrdered By: Conner Griffith on 02-15-2023 Lipase [Catalytic activity/Vol] 19.0 U/L 11.0-82.0 [facility] Lymphocytes Auto (Bld) [#/Vo l]Ordered By: Conner Griffith on 02-15-2023 Lymphocytes (Bld) [#/Vol] 1.8 10*3/uL 1.00-4.8 [facility] Lymphocytes/100 WBC Auto (Bl d)Ordered By: Conner Griffith on 02-15-2023 Lymphocytes/100 WBC (Bld) 33.8 % . [facility] MCH Auto (RBC) [Entitic mass ]Ordered By: Conner Griffith on 02-15-2023 MCH (RBC) [Entitic mass] 29.4 pg 24.7-34.3 [facility] MCHC Auto (RBC) [Mass/Vol]Or dered By: Conner Griffith on 02-15-2023 MCHC (RBC) [Mass/Vol] 33.8 g/dL 32.0-35.0 [facility] MCV Auto (RBC) [Entitic vol] Ordered By: Conner Griffith on 02-15-2023 MCV (RBC) [Entitic vol] 86.8 fL 80-100 [facility] Monocyte distribution width [Entitic volume] in Blood by AutomatedOrdered By: Conner Griffith on 02-15-2023 Monocyte distribution width Auto (Bld) [Entitic vol] 18.21 % 0.00-20.00 [facility] Monocytes Auto (Bld) [#/Vol] Ordered By: Conner Griffith on 02-15-2023 Monocytes (Bld) [#/Vol] 0.3 10*3/uL 0.0-0.8 [facility] Monocytes/100 WBC Auto (Bld) Ordered By: Conner Griffith on 02-15-2023 Monocytes/100 WBC (Bld) 4.8 % . [facility] Neutrophils Auto (Bld) [#/Vo l]Ordered By: Conner Griffith on 02-15-2023 Neutrophils (Bld) [#/Vol] 3.0 10*3/uL 1.8-7.7 [facility] Neutrophils/100 WBC Auto (Bl d)Ordered By: Conner Griffith on 02-15-2023 Neutrophils/100 WBC (Bld) 56.8 % . [facility] No Panel InformationOrdered By: Conner Griffith on 02-15-2023 Estimated GFR (CKD-EPI) > 60.0 mL/Min [facility] Creatinine Clearance (Chem 98.01 [facility] Nucleated erythrocytes [Pres ence] in Blood by Automated countOrdered By: Conner Griffith on 02-15-2023 Nucleated RBC Auto Ql (Bld) 0.2 /100{WBC} 0-0.5 [facility] Partial Thromboplastin Timeo n 02-15-2023 aPTT Coag (Bld) [Time] 37.0 s High 25.1-36.5 [facility] Comment on above: Result Comment: PERF ORMED BY: [place] [address] PATHOLOGIST AUTO HAULER ROOSEVELT KEYES M.D. Performed By: #### P ORS #### [address] Platelet mean volume Auto (B ld) [Entitic vol]Ordered By: Conner Griffith on 02-15-2023 Platelet mean volume (Bld) [Entitic vol] 7.3 fL 6.3-10.7 [facility] Platelet poor plasma interna tional normalized ratio (INR) by coagulation assay (relatOrdered By: Conner Griffith on 02-15-2023 INR Coag (PPP) [Relative time] 1.0 {INR} [facility] Comment on above: INR Therapeutic Rang e [...] (Bld) [#/Vol] 385 10*3/uL 150-450 [facility] Potassium [Moles/volume] in Serum or PlasmaOrdered By: Conner Griffith on 02-15-2023 Potassium [Moles/Vol] 3.9 mmol/L 3.5-5.1 [facility] Protein [Mass/volume] in Ser um or PlasmaOrdered By: Conner Griffith on 02-15-2023 Protein [Mass/Vol] 7.3 g/dL 6.4-8.9 [facility] Prothrombin Time INRon 02-15 INR Coag (PPP) [Relative time] 1.0 {INR} Normal [facility] Comment on above: Result Comment: INR Therapeutic [...] 4.5 Performed By: #### P ORS #### [place] [id number] [facility] PT Coag (PPP) [Time] 11.7 s Normal 9.0-12.9 [facility] Comment on above: Performed By: #### P ORS #### [place] [address] RBC Auto (Bld) [#/Vol]Ordere d By: Conner Griffith on 02-15-2023 RBC (Bld) [#/Vol] 4.43 10*6/uL 3.60-5.00 [facility] Serum or plasma albumin/glob ulin mass ratioOrdered By: Conner Griffith on 02-15-2023 Albumin/Globulin [Mass ratio] 1.4 {ratio} [facility] Serum or plasma anion gap de terminationOrdered By: Conner Griffith on 02-15-2023 Anion gap [Moles/Vol] 12.6 mmol/L 6.0-15.0 [facility] Serum or plasma non-glucuron idated bilirubin measurement (mass/volume)Ordered By: Conner Griffith on 02-15-2023 Bilirubin.indirect [Mass/Vol] 0.4 mg/dL [facility] Sodium [Moles/volume] in Ser um or PlasmaOrdered By: Conner Griffith on 02-15-2023 Sodium [Moles/Vol] 140 mmol/L 136-145 [facility] Urea nitrogen [Mass/volume] in Serum or PlasmaOrdered By: Conner Griffith on 02-15-2023 Urea nitrogen [Mass/Vol] 14 mg/dL 7-25 [facility] WBC Auto (Bld) [#/Vol]Ordere d By: Conner Griffith on 02-15-2023 WBC (Bld) [#/Vol] 5.2 10*3/uL 3.8-11.6 [facility] MG MAMM SCREEN 3D MACARIO CADon 11-30-2022 MG MAMM SCREEN 3D MACARIO CAD Normal [facility] ER URINE PROFILEon 3 Bilirubin Ql (U) Negative Normal NEGATIVE [facility] Comment on above: Performed By: #### E RUR ####[facility] [address] [place] [address]Dr. Tadeo Smyth Clarity (U) CLEAR Normal CLEAR [facility] Comment on above: Performed By: #### E RUR ####[facility] N[address] [place], [place] [address]Dr. Margotnicole Haja Color (U) YELLOW Normal YELLOW [facility] Comment on above: Performed By: #### E RUR ####[facility] [address] [place], [place] [address]Dr. Tadeo Smyth ERUAHD A micrscopic examina tion will be performed if indicated. Normal [facility] Comment on above: Performed By: #### E RUR ####[facility] [address] [place], [place] [address]Dr. Tadeo Smyth Glucose Ql (U) Negative Normal NEGATIVE [facility] Comment on above: Performed By: #### E RUR ####[facility] [address] [place], [place] [address]Dr. Tadeo Smyth Hemoglobin Ql (U) TRACE-INTACT Abnormal NEGATIVE [facility] Comment on above: Performed By: #### E RUR ####[facility] Gwk[address]gu[address] [place], [place] [address]Dr. Tadeo Smyth Ketones Ql (U) Negative Normal NEGATIVE [facility] Comment on above: Performed By: #### E RUR ####[facility] X[address] [place], [place] [address]Dr. Tadeo Smyth LEUKOCYTES Negative Normal NEGATIVE [facility] Comment on above: Performed By: #### E RUR ####[facility] [address] [place], [place] [address]Dr. Tadeo Smyth Nitrite Ql (U) Negative Normal NEGATIVE [facility] Comment on above: Performed By: #### E RUR ####[facility] [address] [place], [place] [address]Dr. Tadeo Smyth pH (U) 6.0 [pH] Normal 5-9 [facility] Comment on above: Performed By: #### E RUR ####[facility] Ad[address]yr[address]ef[address] [place], [place] [address]Dr. Tadeo Smyth SPEC GRAVITY >=1.030 Abnormal 1.005-<=1.0 25 [facility] Comment on above: Performed By: #### E RUR ####[facility] Ngpeeenbzu[address] [place] [address]Dr. Tadeo Smyth UA PROTEIN Negative Normal NEGATIVE/ TRACE [facility] Comment on above: Performed By: #### E RUR ####[facility] Ped[address]atzo[address] [place], [place] [address]Dr. Tadeo Smyth UR MICRO IND NOT INDICATED Normal [facility] Comment on above: Performed By: #### E RUR ####[facility] [address]xl[address] [place] [address]Dr. Tadeo Smyth Urobilinogen Qn (U) 0.2 {Benito'U}/dL Normal 0.2 - 1. 0 [facility] Comment on above: Performed By: #### E RUR ####[facility] J[address]fsmaabm[address] [place], [place] [address]Dr. Tadeo Smyth XR ABD FLAT UP_PA Kasey 11-28 XR ABD FLAT UP_PA CH Normal [facility] AMYLASEon 11-27-2022 Amylase [Catalytic activity/Vol] 63 U/L Normal 25-115 [facility] Comment on above: Performed By: #### L VIJI HALL, CMP ####[facility] [address] [place], [place] [address]Dr. Tadeo Smyth CBC AUTO DIFFon 11-27-2022 BASO # 0.0 103/ul Normal 0.0-0.1 [facility] Comment on above: Performed By: #### C BC ####[facility] P[address]ot[address] [place], [place] [address]Dr. Tadeo Smyth Basophils/100 WBC (Bld) 0.4 % Normal 0.2-2.0 [facility] Comment on above: Performed By: #### C BC ####[facility] [address]qr[address] [place], [place] [address]Dr. Tadeo Smyth EO # 0.2 103/ul Normal 0.0-0.7 [facility] Comment on above: Performed By: #### C BC ####[facility] U[address]otgdev[address] [place] [id number]. Tadeo Smyth Eosinophils/100 WBC (Bld) 2.8 % Normal 0.9-7.0 [facility] Comment on above: Performed By: #### C BC ####[facility] I[address]mpyakxf[address] [place] [address]Dr. Tadeo Smyth Erythrocyte distribution width (RBC) [Ratio] 13.2 % Normal 11.0-15.0 [facility] Comment on above: Performed By: #### C BC ####[facility] X[address] [place], [place] [address]Dr. Tadeo Smyth Hematocrit (Bld) [Volume fraction] 42.6 % Normal 36.0-48.0 [facility] Comment on above: Performed By: #### C BC ####[facility] It[address]ss[address] [place], [place] [address]Dr. Tadeo Smyth Hemoglobin (Bld) [Mass/Vol] 13.6 g/dL Normal 12.0-16.0 [facility] Comment on above: Performed By: #### C BC ####[facility] M[address]nhaw[address] [place], [place] [address]Dr. Tadeo Smyth IG # 0.02 10e3/ul Normal 0.00-0.03 [facility] Comment on above: Performed By: #### C BC ####[facility] Puruvngjin[address]2 [place] [address]Dr. Tadeo Smyth IG % 0.3 % Normal 0.0-0.5 [facility] Comment on above: Performed By: #### C BC ####[facility] Sl[address]fprhom[address] [place], [place] [address]Dr. Tadeo Smyth LYMPH # 2.2 103/ul Normal 1.2-3.8 [facility] Comment on above: Performed By: #### C BC ####[facility] [address] [place], [place] [address]Dr. Tadeo Smyth Lymphocytes/100 WBC (Bld) 32.1 % Normal 20.5-60.0 [facility] Comment on above: Performed By: #### C BC ####[facility] Izxnw[address]ow[address] [place] [id number]. Tadeo Smyth MANUAL DIFF REQ NO Normal [facility] Comment on above: Performed By: #### C BC ####[facility] Ekdwiplszb6[address] [place] [id number]. Tadeo Smyth MCH (RBC) [Entitic mass] 29.6 pg Normal 26.7-34.0 [facility] Comment on above: Performed By: #### C BC ####[facility] Q[address]wcshyez[address] [place], [place] [address]Dr. Tadeo Smyth MCHC (RBC) [Mass/Vol] 31.9 g/dL Normal 29.9-35.2 [facility] Comment on above: Performed By: #### C BC ####[facility] [address] [place], [place] [address]Dr. Tadeo Smyth MCV (RBC) [Entitic vol] 92.6 fL Normal 81.0-99.0 [facility] Comment on above: Performed By: #### C BC ####[facility] [address]xd[address] [place], [place] [address]Dr. Tadeo Smyth MONO # 0.2 103/ul Critically low 0.3-0.8 [facility] Comment on above: Performed By: #### C BC ####[facility] U[address]meupclz[address] [place], [place] [address]Dr. Tadeo Haja Monocytes/100 WBC (Bld) 3.2 % Normal 1.7-12.0 [facility] Comment on above: Performed By: #### C BC ####[facility] Sz[address]eb[address]ww[address] [place], [place] [address]Dr. Tadeo Smyth NEUT # 4.2 103/ul Normal 1.4-6.5 [facility] Comment on above: Performed By: #### C BC ####[facility] G[address]znaxec[address] [place], [place] [address]Dr. Tadeo Haja Neutrophils/100 WBC (Bld) 61.2 % Normal 43.0-75.0 [facility] Comment on above: Performed By: #### C BC ####[facility] W[address]jqwrk6[address] [place] [phone]. Tadeo Smyth Platelet mean volume (Bld) [Entitic vol] 9.0 fL Critically low 9.5-13.5 [facility] Comment on above: Performed By: #### C BC ####[facility] Z[address]myfbffr2196 [place] [phone]. Tadeo Smyth PLT 392 103/ul Normal 150-450 [facility] Comment on above: Performed By: #### C BC ####[facility] Qnislcoplr3782 [place] [phone]. Tadeo Smyth RBC 4.60 106/ul Normal 4.20-5.40 [facility] Comment on above: Performed By: #### C BC ####[facility] Gwvrurjaxt24[address] [place] [address]Dr. Tadeo Smyth WBC 6.9 103/ul Normal 4.0-11.0 [facility] Comment on above: Performed By: #### C BC ####[facility] [address] [place], [place] [address]Dr. Tadeo Smyth LIPASEon 11-27-2022 Lipase [Catalytic activity/Vol] 100.0 U/L Normal 73.0-393.0 [facility] Comment on above: Performed By: #### L VIJI HALL, CMP ####[facility] [address]qbgso[address] [place] [address]Dr. Tadeo Smyth PROF 14(COMP METB)on 023 Albumin [Mass/Vol] 3.5 g/dL Normal 3.4-5.0 [facility] Comment on above: Performed By: #### L VIJI HALL, CMP ####[facility] Onxmxv[address]ub[address] [place], [place] [address]Dr. Tadeo Smyth Albumin/Globulin [Mass ratio] 0.9 {ratio} Normal [facility] Comment on above: Performed By: #### L ISABEL VIJI, CMP ####[facility] H[address]ixfnsm[address] [place] [address]Dr. Tadeo Smyth ALP [Catalytic activity/Vol] 166 U/L Critically high 46-116 [facility] Comment on above: Performed By: #### L IPA VIJI, CMP ####[facility] Siflntogfu[address] [place] [address]Dr. Tadeo Smyth ALT [Catalytic activity/Vol] 25 U/L Normal 14-59 [facility] Comment on above: Performed By: #### L IPA VIJI, CMP ####[facility] Jhkxruiwvq4614 [place] [address]Dr. Tadeo Smyth Anion gap [Moles/Vol] 12.4 mmol/L Normal Th e [facility] Comment on above: Performed By: #### L IPA VIJI, CMP ####[facility] [address]wfcneejq[address] [place], [place] [address]Dr. Tadeo Smyth AST [Catalytic activity/Vol] 18 U/L Normal 15-37 [facility] Comment on above: Performed By: #### L IPA VIJI, CMP ####[facility] [address] [place], [place] [address]Dr. Tadeo Smyth Bilirubin [Mass/Vol] 0.3 mg/dL Normal 0.2-1.0 [facility] Comment on above: Performed By: #### L IPA VIJI, CMP ####[facility] [address]fogr[address] [place], [place] [address]Dr. Tadeo Smyth Calcium [Mass/Vol] 9.1 mg/dL Normal 8.5-10.1 [facility] Comment on above: Performed By: #### L IPA VIJI, CMP ####[facility] X[address]ctv[address]kh[address] [place], [place] [address]Dr. Tadeo Smyth Chloride [Moles/Vol] 104 mmol/L Normal 98-107 [facility] Comment on above: Performed By: #### L IPA VIJI, CMP ####[facility] [address]nc[address] [place], [place] [address]Dr. Tadeo Smyth CO2 [Moles/Vol] 25.0 mmol/L Normal 21.0-32.0 [facility] Comment on above: Performed By: #### L IPA VIJI, CMP ####[facility] [address] [place], [place] [address]Dr. Tadeo Smyth Creatinine [Mass/Vol] 0.87 mg/dL Normal 0.55-1.02 [facility] Comment on above: Performed By: #### L VIJI HALL, CMP ####[facility] [address] [place] [address]Dr. Tadeo Smyth EGFR-AF SWISS >60 Normal >=60 [facility] Comment on above: Performed By: #### L VIJI HALL, CMP ####[facility] Gqcngefqoj[address] [place] [address]Dr. Tadeo Smyth EGFR-NON AF SWISS >60 Normal >=60 [facility] Comment on above: Performed By: #### L VIJI HALL, CMP ####[facility] [address]ytzlpttct[address] [place] [address]Dr. Tadeo Smyth Globulin (S) [Mass/Vol] 3.9 g/dL Normal [facility] Comment on above: Performed By: #### L VIJI HALL, CMP ####[facility] Nqolhdytgz6828 [place] [address]Dr. Tadeo Smyth Glucose [Mass/Vol] 169 mg/dL Critically high 74-106 [facility] Comment on above: Performed By: #### L VIJI HALL, CMP ####[facility] R[address]wwusyaho[address]62 [place] [address]Dr. Tadeo Smyth Potassium [Moles/Vol] 3.4 mmol/L Critically low 3.5-5.1 [facility] Comment on above: Performed By: #### L VIJI HALL, CMP ####[facility] Oflksjzjgj4435 [place] [address]Dr. Tadeo Smyth Protein [Mass/Vol] 7.4 g/dL Normal 6.4-8.2 [facility] Comment on above: Performed By: #### L VIJI HALL, CMP ####[facility] Rvshotjgia1132 [place] [address]Dr. Tadeo Smyth Sodium [Moles/Vol] 138 mmol/L Normal 136-145 [facility] Comment on above: Performed By: #### L VIJI HALL, CMP ####[facility] Etrtckzxkz8910 [place], [place] [address]Wx. Tadeo Smyth Urea nitrogen [Mass/Vol] 23.0 mg/dL Critically high 7.0-18.0 [facility] Comment on above: Performed By: #### L VIJI HALL, CMP ####[facility] Jmwuxccpsf1717 [place], [place] [address]Qw. Tadeo Smyth Urea nitrogen/Creatinine [Mass ratio] 26.4 mg/mg Normal [facility] Comment on above: Performed By: #### L VIJI HALL, CMP ####[facility] Ldlcigbktv1110 [place], [place] [address]Gs. T[address] CT enterographyon 11-04-2022 CT enterography [facility] [place] [address] CT Scan Report Signed Patient: Constantino Cardoso MR#: [id number] : 1970 Acct:[id number] Age/Sex: 52 / F ADM Date: 11/04/22 Loc: CT Room: Type: [facility] Attending Dr: Jennie Ayno MD Copies to: Jennie Ayon MD Ordering [...] Bateman Jr., D.O.11/04/2022 11:17 AM Dictation Location: [place] [address] Transcribed By: [facility] 11/04/22 111 Dictated By: Tiburcio Bateman Jr, DO 11/04/22 1112 Signed By: 11/04/22 1117 Normal [facility] AMYLASEon 11-02-2022 Amylase [Catalytic activity/Vol] 40 U/L Normal 25-115 [facility] Comment on above: Performed By: #### L IPA, MG, CMP, VIJI ####[facility] Ygbixjnpon6702 [place] [address]Dr. Tadeo Smyth CBC AUTO DIFFon 11-02-2022 BASO # 0.0 103/ul Normal 0.0-0.1 [facility] Comment on above: Performed By: #### C BC ####[facility] Nttqvmtgpa4381 [place] [address]Dr. Tadeo Smyth Basophils/100 WBC (Bld) 0.5 % Normal 0.2-2.0 [facility] Comment on above: Performed By: #### C BC ####[facility] Mbocuhglyb0055 [place] [address]Dr. Tadeo Smyth EO # 0.1 103/ul Normal 0.0-0.7 [facility] Comment on above: Performed By: #### C BC ####[facility] Xwatiryfmn7967 [place] [address]Dr. Tadeo Smyth Eosinophils/100 WBC (Bld) 2.8 % Normal 0.9-7.0 [facility] Comment on above: Performed By: #### C BC ####[facility] Xiwkkrvppy7114 [place] [address]Dr. Tadeo Smyth Erythrocyte distribution width (RBC) [Ratio] 13.3 % Normal 11.0-15.0 [facility] Comment on above: Performed By: #### C BC ####[facility] Rzbsgjxogb8753 [place] [address]Dr. Tadeo Smyth Hematocrit (Bld) [Volume fraction] 35.6 % Critically low 36.0-48.0 [facility] Comment on above: Performed By: #### C BC ####[facility] Pooammynjb8397 [place] [address]Dr. Tadeo Smyth Hemoglobin (Bld) [Mass/Vol] 11.3 g/dL Critically low 12.0-16.0 [facility] Comment on above: Performed By: #### C BC ####[facility] Fcnrckgtgy[address] [place], [place] [address]Dr. Tadeo Smyth IG # 0.01 10e3/ul Normal 0.00-0.03 [facility] Comment on above: Performed By: #### C BC ####[facility] Uuxbqhsqmj66[address] [place], [place] [address]Dr. Tadeo Smyth IG % 0.2 % Normal 0.0-0.5 [facility] Comment on above: Performed By: #### C BC ####[facility] Xbojuzzpnr9[address] [place], [place] [address]Dr. Tadeo Haja LYMPH # 1.5 103/ul Normal 1.2-3.8 [facility] Comment on above: Performed By: #### C BC ####[facility] Osjukkkcbi69[address] [place], [place] [address]Dr. Tadeo Haja Lymphocytes/100 WBC (Bld) 34.9 % Normal 20.5-60.0 [facility] Comment on above: Performed By: #### C BC ####[facility] Eyodamtmxk9[address] [place], [place] [address]Dr. Margotnicole Smyth MANUAL DIFF REQ NO Normal [facility] Comment on above: Performed By: #### C BC ####[facility] Bccsxhcmlf7[address] [place], [place] [address]Dr. Tadeo Smyth MCH (RBC) [Entitic mass] 28.8 pg Normal 26.7-34.0 [facility] Comment on above: Performed By: #### C BC ####[facility] Yrerzsrfze1117 [place] [address]Dr. Tadeo Smyth MCHC (RBC) [Mass/Vol] 31.7 g/dL Normal 29.9-35.2 [facility] Comment on above: Performed By: #### C BC ####[facility] Xsplhgjlsq5428 [place] [address]Dr. Tadeo Smyth MCV (RBC) [Entitic vol] 90.8 fL Normal 81.0-99.0 [facility] Comment on above: Performed By: #### C BC ####[facility] Shheyoiapp[address] [place], [place] [address]DrNeo Tadeo Smyth MONO # 0.3 103/ul Normal 0.3-0.8 [facility] Comment on above: Performed By: #### C BC ####[facility] Admrxprzqg679[address] [place], [place] [address]Dr. Tadeo Smyth Monocytes/100 WBC (Bld) 6.9 % Normal 1.7-12.0 [facility] Comment on above: Performed By: #### C BC ####[facility] Cqgekbbotk09[address] [place], [place] [address]Dr. Tadeo Smyth NEUT # 2.4 103/ul Normal 1.4-6.5 [facility] Comment on above: Performed By: #### C BC ####[facility] Kgzljjkasc[address] [place], [place] [address]Dr. Tadeo Haja Neutrophils/100 WBC (Bld) 54.7 % Normal 43.0-75.0 [facility] Comment on above: Performed By: #### C BC ####[facility] Wcnsqiiqio47[address] [place], [place] [address]DrNeo Tadeo Smyth Platelet mean volume (Bld) [Entitic vol] 8.9 fL Critically low 9.5-13.5 [facility] Comment on above: Performed By: #### C BC ####[facility] Opjaoyvumt4698 [place] [id number]. Tadeo Smyth PLT 316 103/ul Normal 150-450 [facility] Comment on above: Performed By: #### C BC ####[facility] Wqgswlqoti1632 [place] [address]Dr. Tadeo Smyth RBC 3.92 106/ul Critically low 4.20-5.40 [facility] Comment on above: Performed By: #### C BC ####[facility] Aerbdilksu1668 [place] [address]Dr. Tadeo Smyth WBC 4.4 103/ul Normal 4.0-11.0 [facility] Comment on above: Performed By: #### C BC ####[facility] Qotpglhfea35[address] [place], [place] [address]Dr. Tadeo Smyth H PYLORI ANTIBODY IGGon 10-07 H. PYLORI IGG ABS 0.12 Index Value Normal 0.00-0.79 [facility] Comment on above: Result Comment: Nega tive <0.80 Equivocal 0.80 - 0.89 Positive >0.89 Performed By: #### H PYLLC ####[facility] Sicswdqvil36[address] [place], [place] [address]Dr. Tadeo Smyth LIPASEon 11-02-2022 Lipase [Catalytic activity/Vol] 58.0 U/L Critically low 73.0-393.0 [facility] Comment on above: Performed By: #### L IPA, MG, CMP, VIJI ####[facility] Ljvdegqcmq8[address] [place], [place] [address]Dr. Tadeo Smyth MAGNESIUMon 11-02-2022 Magnesium [Mass/Vol] 1.8 mg/dL Normal 1.8-2.4 [facility] Comment on above: Performed By: #### L IPA, MG, CMP, VIJI ####[facility] Hareackujg33[address] [place], [place] [address]DrNeo Tadeo Smyth PROF 14(COMP METB)on 023 Albumin [Mass/Vol] 3.2 g/dL Critically low 3.4-5.0 [facility] Comment on above: Performed By: #### L IPA, MG, CMP, VIJI ####[facility] Ofvwghouhi4972 [place] [address]Dr. Tadeo Smyth Albumin/Globulin [Mass ratio] 1.0 {ratio} Normal [facility] Comment on above: Performed By: #### L IPA, MG, CMP, VIJI ####[facility] Ybjsbzokmb4085 [place] [address]Dr. Tadeo Smyth ALP [Catalytic activity/Vol] 138 U/L Critically high 46-116 [facility] Comment on above: Performed By: #### L IPA, MG, CMP, VIJI ####[facility] Ygzuziijay9[address] [place], [place] [address]Dr. Tadeo Smyth ALT [Catalytic activity/Vol] 22 U/L Normal 14-59 [facility] Comment on above: Performed By: #### L IPA, MG, CMP, VIJI ####[facility] Ycpoqdtzjv9[address] [place], [place] [address]Dr. Tdaeo Smyth Anion gap [Moles/Vol] 10.0 mmol/L Normal [facility] Comment on above: Performed By: #### L IPA, MG, CMP, VIJI ####[facility] Zsvoaiyogy5[address] [place], [place] [address]Dr. Tadeo Smyth AST [Catalytic activity/Vol] 18 U/L Normal 15-37 [facility] Comment on above: Performed By: #### L IPA, MG, CMP, VIJI ####[facility] Vqyrqokahb[address] [place], [place] [address]Dr. Tadeo Smyth Bilirubin [Mass/Vol] 0.5 mg/dL Normal 0.2-1.0 [facility] Comment on above: Performed By: #### L IPA, MG, CMP, VIJI ####[facility] Inipvamsnf6740[address] [place], [place] [address]Dr. Tadeo Smyth Calcium [Mass/Vol] 8.9 mg/dL Normal 8.5-10.1 [facility] Comment on above: Performed By: #### L IPA, MG, CMP, VIJI ####[facility] Kmgmpcdtfu7[address] [place], [place] [address]Dr. Tadeo Smyth Chloride [Moles/Vol] 107 mmol/L Normal 98-107 [facility] Comment on above: Performed By: #### L IPA, MG, CMP, VIJI ####[facility] Nxmhcqcmtk2913 [place] [address]Dr. Tadeo Smyth CO2 [Moles/Vol] 28.8 mmol/L Normal 21.0-32.0 [facility] Comment on above: Performed By: #### L IPA, MG, CMP, VIJI ####[facility] Loteyhpkor8307 [place] [address]Dr. Tadeo Smyth Creatinine [Mass/Vol] 0.74 mg/dL Normal 0.55-1.02 [facility] Comment on above: Performed By: #### L IPA, MG, CMP, VIJI ####[facility] Kwptfwlzvi[address] [place], [place] [address]Dr. Tadeo Smyth EGFR-AF SWISS >60 Normal >=60 [facility] Comment on above: Performed By: #### L IPA, MG, CMP, VIJI ####[facility] Rvahakywec9[address] [place], [place] [address]Dr. Tadeo Smyth EGFR-NON AF SWISS >60 Normal >=60 [facility] Comment on above: Performed By: #### L IPA, MG, CMP, VIJI ####[facility] Yrkwjkyefl192[address] [place], [place] [address]Dr. Tadeo Smyth Globulin (S) [Mass/Vol] 3.3 g/dL Normal [facility] Comment on above: Performed By: #### L IPA, MG, CMP, VIJI ####[facility] Egkoffxpsy7319 [place] [address]Dr. Tadeo Smyth Glucose [Mass/Vol] 96 mg/dL Normal 74-106 [facility] Comment on above: Performed By: #### L IPA, MG, CMP, VIJI ####[facility] Oxerhzxldc1850 [place] [address]Dr. Tadeo Smyth Potassium [Moles/Vol] 3.8 mmol/L Normal 3.5-5.1 [facility] Comment on above: Performed By: #### L IPA, MG, CMP, VIJI ####[facility] Tflglwhpaz3708 [place] [address]Dr. Tadeo Smyth Protein [Mass/Vol] 6.5 g/dL Normal 6.4-8.2 [facility] Comment on above: Performed By: #### L IPA, MG, CMP, VIJI ####[facility] Outivjiasn7524 [place] [address]Dr. Tadeo Smyth Sodium [Moles/Vol] 142 mmol/L Normal 136-145 [facility] Comment on above: Performed By: #### L IPA, MG, CMP, VIJI ####[facility] Jefhnefban9770 [place] [address]Dr. Tadeo Smyth Urea nitrogen [Mass/Vol] 8.0 mg/dL Normal 7.0-18.0 [facility] Comment on above: Performed By: #### L IPA, MG, CMP, VIJI ####[facility] Lglwmjvhrn[address] [place], [place] [address]Dr. Tadeo Smyth Urea nitrogen/Creatinine [Mass ratio] 10.8 mg/mg Normal [facility] Comment on above: Performed By: #### L IPA, MG, CMP, VIJI ####[facility] Xyqnjwtrcr[address] [place], [place] [address]Dr. Tadeo Smyth AMMONIAon 11-01-2022 Ammonia (P) [Moles/Vol] 18 umol/L Normal 11-32 [facility] Comment on above: Performed By: #### A MM ####[facility] Ixynosahvw[address] [place], [place] [address]Dr. Tadeo Smyth AMYLASEon 11-01-2022 Amylase [Catalytic activity/Vol] 43 U/L Normal 25-115 [facility] Comment on above: Performed By: #### M G, VIJI, LIPA, CMP ####[facility] Zdmmtdxers14[address] [place], [place] [address]Dr. Tadeo Smyth CBC AUTO DIFFon 11-01-2022 BASO # 0.0 103/ul Normal 0.0-0.1 [facility] Comment on above: Performed By: #### C BC ####[facility] Omcrtekvin3277 [place] [address]Dr. Tadeo Smyth Basophils/100 WBC (Bld) 0.6 % Normal 0.2-2.0 [facility] Comment on above: Performed By: #### C BC ####[facility] Lwdhywynsh20[address] [place], [place] [address]Dr. Tadeo Smyth EO # 0.1 103/ul Normal 0.0-0.7 [facility] Comment on above: Performed By: #### C BC ####[facility] Apsjectrmv17[address] [place], [place] [address]Dr. Tadeo Smyth Eosinophils/100 WBC (Bld) 1.5 % Normal 0.9-7.0 [facility] Comment on above: Performed By: #### C BC ####[facility] Upxvvdjoja[address] [place], [place] [address]Dr. Tadeo Smyth Erythrocyte distribution width (RBC) [Ratio] 13.5 % Normal 11.0-15.0 [facility] Comment on above: Performed By: #### C BC ####[facility] Ipcaisruxd64[address] [place], [place] [address]Dr. Tadeo Smyth Hematocrit (Bld) [Volume fraction] 37.7 % Normal 36.0-48.0 [facility] Comment on above: Performed By: #### C BC ####[facility] Uuabzffuoe24[address] [place], [place] [address]Dr. Tadeo Smyth Hemoglobin (Bld) [Mass/Vol] 12.5 g/dL Normal 12.0-16.0 [facility] Comment on above: Performed By: #### C BC ####[facility] Pzeofncuqr22[address] [place], [place] [address]Dr. Tadeo Smyth IG # 0.02 10e3/ul Normal 0.00-0.03 [facility] Comment on above: Performed By: #### C BC ####[facility] Vzarkklggt8[address] [place], [place] [address]Dr. Tadeo Smyth IG % 0.4 % Normal 0.0-0.5 [facility] Comment on above: Performed By: #### C BC ####[facility] Gvlduwhfsv7599 [place] [id number]. Tadeo Haja LYMPH # 1.3 103/ul Normal 1.2-3.8 [facility] Comment on above: Performed By: #### C BC ####[facility] Henmnzagfp6901 [place] [address]Dr. Tadeo Haja Lymphocytes/100 WBC (Bld) 23.9 % Normal 20.5-60.0 [facility] Comment on above: Performed By: #### C BC ####[facility] Adbwyxwulr7795 [place] [address]Dr. Margotnicole Smyth MANUAL DIFF REQ NO Normal [facility] Comment on above: Performed By: #### C BC ####[facility] Vcuxawgrxx6532 [place] [address]Dr. Tadeo Haja MCH (RBC) [Entitic mass] 29.8 pg Normal 26.7-34.0 [facility] Comment on above: Performed By: #### C BC ####[facility] Ijgrxalwcw7296 [place] [address]Dr. Tadeo Haja MCHC (RBC) [Mass/Vol] 33.2 g/dL Normal 29.9-35.2 [facility] Comment on above: Performed By: #### C BC ####[facility] Xgiukzokbl1064 [place] [address]Dr. Tadeo Haja MCV (RBC) [Entitic vol] 89.8 fL Normal 81.0-99.0 [facility] Comment on above: Performed By: #### C BC ####[facility] Zmwdwazvmi6384 [place] [address]Dr. Margotnicole Smyth MONO # 0.3 103/ul Normal 0.3-0.8 [facility] Comment on above: Performed By: #### C BC ####[facility] Oeigbkxofn9933 [place] [address]Dr. Tadeo Haja Monocytes/100 WBC (Bld) 5.2 % Normal 1.7-12.0 [facility] Comment on above: Performed By: #### C BC ####[facility] Pkxtdykdto6824 [place] [address]Dr. Tadeo Smyth NEUT # 3.6 103/ul Normal 1.4-6.5 [facility] Comment on above: Performed By: #### C BC ####[facility] Nbmqrelxhr8900 [place] [address]Dr. Tadeo Smyth Neutrophils/100 WBC (Bld) 68.4 % Normal 43.0-75.0 [facility] Comment on above: Performed By: #### C BC ####[facility] Bpseeeddqa0283 [place] [address]Dr. Tadeo Smyth Platelet mean volume (Bld) [Entitic vol] 9.0 fL Critically low 9.5-13.5 [facility] Comment on above: Performed By: #### C BC ####[facility] Reibdbrjrg8588 [place] [address]Dr. Tadeo Smyth PLT 356 103/ul Normal 150-450 [facility] Comment on above: Performed By: #### C BC ####[facility] Ssocniwtza[address] [place], [place] [address]Dr. Tadeo Smyth RBC 4.20 106/ul Normal 4.20-5.40 [facility] Comment on above: Performed By: #### C BC ####[facility] Nmktqbydnb[address] [place], [place] [address]Dr. Tadeo Smyth WBC 5.2 103/ul Normal 4.0-11.0 [facility] Comment on above: Performed By: #### C BC ####[facility] Ptaxlecwpt0670 [place] [address]Dr. Tadeo Smy[address] CT ABD/PELV W CONon 11-01-19 CT ABD/PELV W CON Normal [facility] CULTURE BLOODon 11-01-2022 Microscopic examination of blood, culture Culture Observations: NO GROWTH AT 5 DAYS. Isolate 1 BC_BA_NA Normal [facility] Comment on above: Performed By: #### B LDCX2 ####[facility] Kocwwygkzd4981 [place] [address]Dr. Tadeo Smyth Performed By: #### B LDCX1 ####[facility] Pscaodqkco0479 [place] [id number]. Tadeo Smyth CULTURE URINEon 11-01-2022 CULTURE URINE Culture Observations : LIGHT GROWTH OF MIXED GENITAL SINTIA. NO POTENTIAL PATHOGENS SEEN. Normal [facility] Comment on above: Performed By: #### U RCX ####[facility] Nbrklnvtmt5867 [place] [id number]. Tadeo Smyth Covid-19 PCR (CVDTB)on 10-07 SARS-CoV-2 (COVID-19) RNA CHEN+probe Ql (Unsp spec) Not detected Normal NOT DETECTED [facility] Comment on above: Result Comment: When diagnostic [...] for this test is supported by the [employer] of [employer] and Human Service's declaration that [...] be used). Performed By: #### C VDTBH ####[facility] Xmcvjggiac8605 [place] [address]Dr. Tadeo Smyth LACTATE/LACTIC ACIDon 2022 Lactate [Moles/Vol] 0.7 mmol/L Normal 0.4-1.9 [facility] Comment on above: Performed By: #### L ACT ####[facility] [address]pebejmpwb[address] [place], [place] [address]Dr. Tadeo Smyth LIPASEon 11-01-2022 Lipase [Catalytic activity/Vol] 58.0 U/L Critically low 73.0-393.0 [facility] Comment on above: Performed By: #### M G, VIJI, LIPA, CMP ####[facility] Vouotcuqvx3854 [place] [address]Dr. Tadeo Smyth MAGNESIUMon 11-01-2022 Magnesium [Mass/Vol] 2.0 mg/dL Normal 1.8-2.4 [facility] Comment on above: Performed By: #### M Ayan, VIJI, LIPA, CMP ####[facility] Gtbskavgsw0530 [place] [address]Dr. Tadeo Smyth PROF 14(COMP METB)on 023 Albumin [Mass/Vol] 3.6 g/dL Normal 3.4-5.0 [facility] Comment on above: Performed By: #### Clementina Botello, VIJI, LIPA, CMP ####[facility] Hpmnhynzca0004 [place] [address]Dr. Tadeo Smyth Albumin/Globulin [Mass ratio] 1.0 {ratio} Normal [facility] Comment on above: Performed By: #### Clementina Botello, VIJI, LIPA, CMP ####[facility] Jvuvmcpjgn2419 [place] [address]Dr. Tadeo Smyth ALP [Catalytic activity/Vol] 164 U/L Critically high 46-116 [facility] Comment on above: Performed By: #### M Ayan, VIJI, LIPA, CMP ####[facility] Tjiuroglrp3015 [place] [address]Dr. Tadeo Smyth ALT [Catalytic activity/Vol] 22 U/L Normal 14-59 [facility] Comment on above: Performed By: #### M Ayan, VIJI, LIPA, CMP ####[facility] Odljaojsay3816 [place] [address]Dr. Tadeo Smyth Anion gap [Moles/Vol] 11.5 mmol/L Normal [facility] Comment on above: Performed By: #### M Ayan, VIJI, LIPA, CMP ####[facility] Yoaazmhulf5186 [place] [address]Dr. Tadeo Smyth AST [Catalytic activity/Vol] 17 U/L Normal 15-37 [facility] Comment on above: Performed By: #### M G, VIJI, LIPA, CMP ####[facility] Tekhypfoyp7013 [place] [address]Dr. Tadeo Smyth Bilirubin [Mass/Vol] 0.4 mg/dL Normal 0.2-1.0 [facility] Comment on above: Performed By: #### M G, VIJI, LIPA, CMP ####[facility] Haskcsajyo9819 [place] [address]Dr. Tadeo Smyth Calcium [Mass/Vol] 9.1 mg/dL Normal 8.5-10.1 [facility] Comment on above: Performed By: #### M G, VIJI, LIPA, CMP ####[facility] Iovekhyjbh[address] [place], [place] [address]Dr. Tadeo Smyth Chloride [Moles/Vol] 105 mmol/L Normal 98-107 [facility] Comment on above: Performed By: #### M G, VIJI, LIPA, CMP ####[facility] Hxzgeiilnk14[address] [place], [place] [address]Dr. Tadeo Smyth CO2 [Moles/Vol] 27.6 mmol/L Normal 21.0-32.0 [facility] Comment on above: Performed By: #### M G, VIJI, LIPA, CMP ####[facility] Togjohkgqk[address] [place], [place] [address]Dr. Tadeo Smyth Creatinine [Mass/Vol] 0.72 mg/dL Normal 0.55-1.02 [facility] Comment on above: Performed By: #### M G, VIJI, LIPA, CMP ####[facility] Bebfbmjshb[address] [place], [place] [address]Dr. Tadeo Smyth EGFR-AF SWISS >60 Normal >=60 [facility] Comment on above: Performed By: #### M G, VIJI, LIPA, CMP ####[facility] Muagssgcmb[address] [place], [place] [address]Dr. Tadeo Smyth EGFR-NON AF SWISS >60 Normal >=60 [facility] Comment on above: Performed By: #### M G, VIJI, LIPA, CMP ####[facility] Nbymkmzbup8[address] [place], [place] [address]Dr. Tadeo Smyth Globulin (S) [Mass/Vol] 3.6 g/dL Normal [facility] Comment on above: Performed By: #### M Ayan, VIJI, LIPA, CMP ####[facility] Ngkqdcneia9352 [place] [address]Dr. Tadeo Smyth Glucose [Mass/Vol] 100 mg/dL Normal 74-106 [facility] Comment on above: Performed By: #### M Ayan, VIJI, LIPA, CMP ####[facility] Epmaeeafji8942 [place] [address]Dr. Tadeo Smyth Potassium [Moles/Vol] 4.1 mmol/L Normal 3.5-5.1 [facility] Comment on above: Performed By: #### M Ayan, VIJI, LIPA, CMP ####[facility] Ddajlwusvx7500 [place] [address]Dr. Tadeo Smyth Protein [Mass/Vol] 7.2 g/dL Normal 6.4-8.2 [facility] Comment on above: Performed By: #### M Ayan, VIJI, LIPA, CMP ####[facility] Rqvsdxkoid4600 [place] [address]Dr. Tadeo Smyth Sodium [Moles/Vol] 140 mmol/L Normal 136-145 [facility] Comment on above: Performed By: #### M Ayan, VIJI, LIPA, CMP ####[facility] Zngsgkdhhf2803 [place] [address]Dr. Tadeo Smyth Urea nitrogen [Mass/Vol] 15.0 mg/dL Normal 7.0-18.0 [facility] Comment on above: Performed By: #### M Ayan, VIJI, LIPA, CMP ####[facility] Rawcslwykw6563 [place] [address]Dr. Tadeo Smyth Urea nitrogen/Creatinine [Mass ratio] 20.8 mg/mg Normal [facility] Comment on above: Performed By: #### M G, VIJI, LIPA, CMP ####[facility] Yruadfulut0639 [place] [address]Dr. Tadeo Smyth UA RANDOM W/MICROSCOPICon BACTERIA TRACE Abnormal NONE SEEN [facility] Comment on above: Performed By: #### U AMIC ####[facility] [address]btwzlcgxq[address] [place], [place] [address]Dr. Tadeo Smyth Bilirubin Ql (U) Negative Normal NEGATIVE [facility] Comment on above: Performed By: #### U AMIC ####[facility] Srtixqnfmw7831 [place] [address]Dr. Tadeo Smyth CAST NONE SEEN Normal NONE SEEN [facility] Comment on above: Performed By: #### U AMIC ####[facility] Jbjbnjcyuy[address] [place], [place] [address]Dr. Tadeo Smyth Clarity (U) CLEAR Normal CLEAR [facility] Comment on above: Performed By: #### U AMIC ####[facility] [id number] [place], [place] [address]Dr. Tadeo Smyth Color (U) LT. YELLOW Normal YELLOW [facility] Comment on above: Performed By: #### U AMIC ####[facility] [id number] [place], [place] [address]Dr. Tadeo Smyth Crystals LM Nom (Urine sed) NONE SEEN Normal NONE SEEN [facility] Comment on above: Performed By: #### U AMIC ####[facility] [id number] [place], [place] [address]Dr. Tadeo Smyth Epithelial cells LM Ql (Urine sed) RARE Normal NONE SEEN /RARE [facility] Comment on above: Performed By: #### U AMIC ####[facility] [address] [place], [place] [address]Dr. Tadeo Smyth Glucose Ql (U) Negative Normal NEGATIVE [facility] Comment on above: Performed By: #### U AMIC ####[facility] [id number] [place], [place] [address]Dr. Tadeo Smyth Hemoglobin Ql (U) TRACE-LYSED Abnormal NEGATIVE [facility] Comment on above: Performed By: #### U AMIC ####[facility] Llobqimnij[address] [place], [place] [address]Dr. Tadeo Smyth Ketones Ql (U) Negative Normal NEGATIVE [facility] Comment on above: Performed By: #### U AMIC ####[facility] [address] [place] [address]Dr. Tadeo Smyth LEUKOCYTES Negative Normal NEGATIVE [facility] Comment on above: Performed By: #### U AMIC ####[facility] [address] [place] [address]Dr. Tadeo Smyth MUCOUS NONE SEEN Normal NONE SEEN [facility] Comment on above: Performed By: #### U AMIC ####[facility] Z[address]ias[address] [place], [place] [address]Dr. Tadeo Smyth Nitrite Ql (U) Negative Normal NEGATIVE [facility] Comment on above: Performed By: #### U AMIC ####[facility] Ig[address] [place], [place] [address]Dr. Tadeo Smyth pH (U) 6.0 [pH] Normal 5-9 [facility] Comment on above: Performed By: #### U AMIC ####[facility] [id number] [place], [place] [address]Dr. Tadeo Smyth RBC 0-2 Normal 0-2 [facility] Comment on above: Performed By: #### U AMIC ####[facility] Ukvloedswv[address] [place], [place] [address]Dr. Tadeo Smyth SPEC GRAVITY 1.010 Normal 1.005-<=1.0 [facility] Comment on above: Performed By: #### U AMIC ####[facility] T[address]em[address] [place], [place] [address]Dr. Tadeo Smyth UA PROTEIN Negative Normal NEGATIVE/ TRACE [facility] Comment on above: Performed By: #### U AMIC ####[facility] [address]wjacu[address] [place], [place] [address]Dr. Tadeo Smyth Urobilinogen Qn (U) 0.2 {Benito'U}/dL Normal 0.2 - 1. 0 [facility] Comment on above: Performed By: #### U AMIC ####[facility] Tpt[address] [place], [place] [address]Dr. Margotnicole Smyth WBC 0-2 Abnormal NONE SEEN [facility] Comment on above: Performed By: #### U [facility] ####[facility] [address] [place] [address]DrNeo Smyth Activated partial thrombopla stin time (aPTT) in platelet poor plasma by coagulation aOrdered By: Conner Griffith on 10-26-2022 aPTT Coag (PPP) [Time] 30.8 s 25.1-36.5 [facility] Albumin [Mass/volume] in Ser um or PlasmaOrdered By: Conner Griffith on 10-26-2022 Albumin [Mass/Vol] 3.6 g/dL 3.2-5.5 [facility] Automated erythrocytes count in urine sediment (number/area)Ordered By: Conner Griffith on 10-26-2022 RBC Auto (Urine sed) [#/Area] 0-1 [HPF] 0-4 [facility] Automated leukocytes count i n urine sediment (number/area)Ordered By: Conner Griffith on 10-26-2022 WBC Auto (Urine sed) [#/Area] None seen [HPF] 0-4 [facility] Basophils Auto (Bld) [#/Vol] Ordered By: Conner Griffith on 10-26-2022 Basophils (Bld) [#/Vol] 0.0 10*3/uL 0.0-0.2 [facility] Basophils/100 WBC Auto (Bld) Ordered By: Conner Griffith on 10-26-2022 Basophils/100 WBC (Bld) 0.6 % . [facility] Bilirubin Test strip Ql (U)O rdered By: Conner Griffith on 10-26-2022 Bilirubin Ql (U) Negative Negative [facility] CT abdomen pelvis w conon CT abdomen pelvis w con [facility] [place] [address] CT Scan Report Signed Patient: Constantino Cardoso MR#: [id number] : 1970 Acct:[id number] Age/Sex: 52 / F ADM Date: 10/26/22 Loc: ER Room: Type: [facility] ER Attending Dr: Copies to: Conner Griffith DO Ordering Provider: Conner M Gladis, DO Date of Service: 10/26/22 CT/CT abdomen [...] Columba Domínguez M.D.10/26/2022 7:46 AM Dictation Location: [place] [address] Transcribed By: [facility] 10/26/22745 Dictated By: Columba Domínguez MD 10/26/22 0738 Signed By: 10/26/22745 [facility] Color Auto (U)Ordered By: Kevin Griffith on 10-26-2022 Color (U) Yellow Yellow [facility] Complete Blood Count Auto Di ffon 10-26-2022 Basophils (Bld) [#/Vol] 0.0 10*3/uL Normal 0.0-0.2 [facility] Comment on above: Result Comment: PERF ORMED BY: [place] [address] PATHOLOGIST AUTO HAULER ROOSEVELT KEYES M.D. Performed By: #### H EPATIC, CBC, BMP, LIPASE #### [address] Basophils/100 WBC (Bld) 0.6 % Normal . [facility] Comment on above: Performed By: #### H EPATIC, CBC, BMP, LIPASE #### [address] Eosinophils (Bld) [#/Vol] 0.2 10*3/uL Normal 0.0-0.45 [facility] Comment on above: Performed By: #### H EPATIC, CBC, BMP, LIPASE #### [facility] [address] [place] [address] Eosinophils/100 WBC (Bld) 3.3 % Normal . [facility] Comment on above: Performed By: #### H EPATIC, CBC, BMP, LIPASE #### [facility] [address] [place] [address] Erythrocyte distribution width (RBC) [Ratio] 14.5 % Normal 11.9-15.3 [facility] Comment on above: Performed By: #### H EPATIC, CBC, BMP, LIPASE #### [facility] [address] [place] [address] Hematocrit (Bld) [Volume fraction] 36.7 % Normal 34.0-46.4 [facility] Comment on above: Performed By: #### H EPATIC, CBC, BMP, LIPASE #### [facility] [address] [place] [address] Hemoglobin (Bld) [Mass/Vol] 12.1 g/dL Normal 11.8-15.4 [facility] Comment on above: Performed By: #### H EPATIC, CBC, BMP, LIPASE #### [address] Lymphocytes (Bld) [#/Vol] 1.9 10*3/uL Normal 1.00-4.8 [facility] Comment on above: Performed By: #### H EPATIC, CBC, BMP, LIPASE #### [address] Lymphocytes/100 WBC (Bld) 29.7 % Normal . [facility] Comment on above: Performed By: #### H EPATIC, CBC, BMP, LIPASE #### [address] MCH (RBC) [Entitic mass] 29.3 pg Normal 24.7-34.3 [facility] Comment on above: Performed By: #### H EPATIC, CBC, BMP, LIPASE #### [address] MCV (RBC) [Entitic vol] 88.5 fL Normal 80-100 [facility] Comment on above: Performed By: #### H EPATIC, CBC, BMP, LIPASE #### [address] Mean Corpuscular HGB Conc 33.1 g/dL Normal 32.0-35.0 [facility] Comment on above: Performed By: #### H EPATIC, CBC, BMP, LIPASE #### [address] Monocytes (Bld) [#/Vol] 0.4 10*3/uL Normal 0.0-0.8 [facility] Comment on above: Performed By: #### H EPATIC, CBC, BMP, LIPASE #### [address] Monocytes/100 WBC (Bld) 16.27 % Normal 0.00-20.00 [facility] Comment on above: Performed By: #### H EPATIC, CBC, BMP, LIPASE #### [address] Monocytes/100 WBC (Bld) 7.1 % Normal . [facility] Comment on above: Performed By: #### H EPATIC, CBC, BMP, LIPASE #### [address] Neutrophils (Bld) [#/Vol] 3.7 10*3/uL Normal 1.8-7.7 [facility] Comment on above: Performed By: #### H EPATIC, CBC, BMP, LIPASE #### [address] Neutrophils/100 WBC (Bld) 59.3 % Normal . [facility] Comment on above: Performed By: #### H EPATIC, CBC, BMP, LIPASE #### [address] NRBC% 0.3 /100{WBC} Normal 0-0.5 [facility] Comment on above: Performed By: #### H EPATIC, CBC, BMP, LIPASE #### [address] Platelet mean volume (Bld) [Entitic vol] 7.5 fL Normal 6.3-10.7 [facility] Comment on above: Performed By: #### H EPATIC, CBC, BMP, LIPASE #### [address] Platelets (Bld) [#/Vol] 379 10*3/uL Normal 150-450 [facility] Comment on above: Performed By: #### H EPATIC, CBC, BMP, LIPASE #### [place] [address] [place] RBC (Bld) [#/Vol] 4.14 10*6/uL Normal 3.60-5.00 [facility] Comment on above: Performed By: #### H EPATIC, CBC, BMP, LIPASE #### [place] [address] [place] WBC (Bld) [#/Vol] 6.3 10*3/uL Normal 3.8-11.6 [facility] Comment on above: Performed By: #### H EPATIC, CBC, BMP, LIPASE #### [facility] [address] [place] [address] Comprehensive Metabolic Pane miranda 10-26-2022 Albumin [Mass/Vol] 3.6 g/dL Normal 3.2-5.5 [facility] Comment on above: Performed By: #### H EPATIC, CBC, BMP, LIPASE #### [address] Albumin/Globulin [Mass ratio] 1.1 {ratio} Normal [facility] Comment on above: Performed By: #### H EPATIC, CBC, BMP, LIPASE #### [address] ALP [Catalytic activity/Vol] 121 U/L High 32-92 [facility] Comment on above: Performed By: #### H EPATIC, CBC, BMP, LIPASE #### [address] ALT [Catalytic activity/Vol] 18 U/L Normal 10-60 [facility] Comment on above: Performed By: #### H EPATIC, CBC, BMP, LIPASE #### [address] Anion gap [Moles/Vol] 11.3 mmol/L Normal 6.0-15.0 [facility] Comment on above: Performed By: #### H EPATIC, CBC, BMP, LIPASE #### [address] AST [Catalytic activity/Vol] 19 U/L Normal 10-42 [facility] Comment on above: Performed By: #### H EPATIC, CBC, BMP, LIPASE #### [address] Bilirubin [Mass/Vol] 0.4 mg/dL Normal 0.3-1.2 [facility] Comment on above: Performed By: #### H EPATIC, CBC, BMP, LIPASE #### [address] [address] [place] Calcium [Mass/Vol] 8.9 mg/dL Normal 8.2-10.2 [facility] Comment on above: Performed By: #### H EPATIC, CBC, BMP, LIPASE #### [facility] [address] Chloride [Moles/Vol] 108 mmol/L Normal 95-114 [facility] Comment on above: Performed By: #### H EPATIC, CBC, BMP, LIPASE #### [facility] [address] [place] [address] CO2 [Moles/Vol] 25.1 mmol/L Normal 22.0-30.0 [facility] Comment on above: Performed By: #### H EPATIC, CBC, BMP, LIPASE #### [address] Creatinine [Mass/Vol] 0.81 mg/dL Normal 0.44-1.03 [facility] Comment on above: Performed By: #### H EPATIC, CBC, BMP, LIPASE #### [facility] [address] [place] [address] Creatinine Clr Calc Pharmacy 93.01 [facility] Comment on above: Performed By: #### H EPATIC, CBC, BMP, LIPASE #### [facility] [address] [place] [address] Estimated GFR ( Roberto > 60 [facility] Comment on above: Result Comment: GFR estimated reference range: According to KDOQI guidelines, <60 ml/min/1.73m2 is sufficient to diagnose a patient with chronic kidney disease. Performed By: #### H EPATIC, CBC, BMP, LIPASE #### [facility] [address] [place] [address] Estimated GFR (Non- Am > 60 [facility] Comment on above: Performed By: #### H EPATIC, CBC, BMP, LIPASE #### [facility] [address] [place] [address] Globulin (S) [Mass/Vol] 3.2 g/dL [facility] Comment on above: Performed By: #### H EPATIC, CBC, BMP, LIPASE #### [facility] [address] [place] [address] [place] Glucose [Mass/Vol] 95 mg/dL Normal 70-100 [facility] Comment on above: Result Comment: [place] Glucose Reference Range is dependent on time and content of last meal. Glucose of more than 200 mg/dL in a nonstressed, ambulatory subject supports the diagnosis of Diabetes Mellitus. ADA recommended reference range Performed By: #### H EPATIC, CBC, BMP, LIPASE #### [facility] [address] Potassium [Moles/Vol] 3.4 mmol/L Low 3.5-5.1 [facility] Comment on above: Performed By: #### H EPATIC, CBC, BMP, LIPASE #### [address] Protein [Mass/Vol] 6.8 g/dL Normal 6.1-7.9 [facility] Comment on above: Performed By: #### H EPATIC, CBC, BMP, LIPASE #### [address] Sodium [Moles/Vol] 141 mmol/L Normal 136-146 [facility] Comment on above: Performed By: #### H EPATIC, CBC, BMP, LIPASE #### [facility] [address] [place] [address] [place] Urea nitrogen [Mass/Vol] 18 mg/dL Normal 9-23 [facility] Comment on above: Performed By: #### H EPATIC, CBC, BMP, LIPASE #### [facility] [address] [place] [address] [place] Creatinine and Glomerular fi ltration rate.predicted panel (S/P/Bld)Ordered By: Conner Griffith on 10-26-2022 Creatinine [Mass/Vol] 0.81 mg/dL 0.44-1.03 [facility] Dipstick and Microscopicon 0 10-26-2022 Appearance (U) Clear Normal Clear [facility] Comment on above: Order Comment: Name Collection Type:: Clean-Voided Midstream Performed By: #### H EPATIC, CBC, BMP, LIPASE #### [address] Bacteria,Urine None Seen Normal None Seen [facility] Comment on above: Order Comment: Name Collection Type:: Clean-Voided Midstream Performed By: #### H EPATIC, CBC, BMP, LIPASE #### [address] Bilirubin,Urine Negative Normal Negative [facility] Comment on above: Order Comment: Name Collection Type:: Clean-Voided Midstream Performed By: #### H EPATIC, CBC, BMP, LIPASE #### [address] Color (U) Yellow Normal Yellow [facility] Comment on above: Order Comment: Name Collection Type:: Clean-Voided Midstream Performed By: #### H EPATIC, CBC, BMP, LIPASE #### [address] Glucose Ql (U) Normal Normal Normal [facility] Comment on above: Order Comment: Name Collection Type:: Clean-Voided Midstream Performed By: #### H EPATIC, CBC, BMP, LIPASE #### [address] Hyaline Casts,Urine None Seen Normal 0-8 [facility] Comment on above: Order Comment: Name Collection Type:: Clean-Voided Midstream Result Comment: PERF ORMED BY: [place] [address] PATHOLOGIST AUTO HAULER ROOSEVELT KEYES M.D. Performed By: #### H EPATIC, CBC, BMP, LIPASE #### [address] Ketones Ql (U) Negative Normal Negative [facility] Comment on above: Order Comment: Name Collection Type:: Clean-Voided Midstream Performed By: #### H EPATIC, CBC, BMP, LIPASE #### [address] Leukocyte esterase Test strip Ql (U) 1+ High Negative [facility] Comment on above: Order Comment: Name Collection Type:: Clean-Voided Midstream Performed By: #### H EPATIC, CBC, BMP, LIPASE #### [address] Nitrite,Urine Negative Normal Negative [facility] Comment on above: Order Comment: Name Collection Type:: Clean-Voided Midstream Performed By: #### H EPATIC, CBC, BMP, LIPASE #### [address] Occult Blood,Urine Negative Normal Negative [facility] Comment on above: Order Comment: Name Collection Type:: Clean-Voided Midstream Result Comment: PERF ORMED BY: [place] [address] PATHOLOGIST AUTO HAULER ROOSEVELT KEYES M.D. Performed By: #### H EPATIC, CBC, BMP, LIPASE #### [address] pH (U) 6.5 [pH] Normal 5.0-9.0 [facility] Comment on above: Order Comment: Name Collection Type:: Clean-Voided Midstream Performed By: #### H EPATIC, CBC, BMP, LIPASE #### [address] Protein,Urine Negative Normal Negative [facility] Comment on above: Order Comment: Name Collection Type:: Clean-Voided Midstream Performed By: #### H EPATIC, CBC, BMP, LIPASE #### [address] RBC LM.HPF (Urine sed) [#/Area] 0 /[HPF] Normal 0-4 [facility] Comment on above: Order Comment: Name Collection Type:: Clean-Voided Midstream Performed By: #### H EPATIC, CBC, BMP, LIPASE #### [address] Specificy [place],Urine 1.019 Normal 1.001-1.030 [facility] Comment on above: Order Comment: Name Collection Type:: Clean-Voided Midstream Performed By: #### H EPATIC, CBC, BMP, LIPASE #### [facility] [address] [place] [address] Squamous Epithelial Cell,Urine 1-2 Normal 0-2 [facility] Comment on above: Order Comment: Name Collection Type:: Clean-Voided Midstream Performed By: #### H EPATIC, CBC, BMP, LIPASE #### [facility] [address] [place] [address] Urobilinogen,Urine Normal Normal Normal [facility] Comment on above: Order Comment: Name Collection Type:: Clean-Voided Midstream Performed By: #### H EPATIC, CBC, BMP, LIPASE #### [facility] [address] [place] [address] WBC,Urine None Seen Normal 0-4 [facility] Comment on above: Order Comment: Name Collection Type:: Clean-Voided Midstream Performed By: #### H EPATIC, CBC, BMP, LIPASE #### [facility] [address] [place] [address] Eosinophils Auto (Bld) [#/Vo l]Ordered By: Conner Griffith on 10-26-2022 Eosinophils (Bld) [#/Vol] 0.2 10*3/uL 0.0-0.45 [facility] Eosinophils/100 WBC Auto (Bl d)Ordered By: Conner Griffith on 10-26-2022 Eosinophils/100 WBC (Bld) 3.3 % . [facility] Erythrocyte distribution wid th Auto (RBC) [Ratio]Ordered By: Conner Griffith on 10-26-2022 Erythrocyte distribution width (RBC) [Ratio] 14.5 % 11.9-15.3 [facility] Estimated glomerular filtrat ion rate (GFR) non- AmericanOrdered By: Conner Griffith on 10-26-2022 GFR/1.73 sq M.predicted among non-blacks MDRD (S/P/Bld) [Vol rate/Area] > 60 mL/Min [facility] Globulin Calc (S) [Mass/Vol] Ordered By: Conner Griffith on 10-26-2022 Globulin (S) [Mass/Vol] 3.2 g/dL [facility] Hematocrit Auto (Bld) [Volum e fraction]Ordered By: Conner Griffith on 10-26-2022 Hematocrit (Bld) [Volume fraction] 36.7 % 34.0-46.4 [facility] Hemoglobin [Mass/volume] in BloodOrdered By: Conner Griffith on 10-26-2022 Hemoglobin (Bld) [Mass/Vol] 12.1 g/dL 11.8-15.4 [facility] Ketones Auto test strip (U) [Mass/Vol]Ordered By: Conner Griffith on 10-26-2022 Ketones (U) [Mass/Vol] Negative Negative [facility] Laboratory - Chemistry and C hemistry - challengeOrdered By: Conner Griffith on 10-26-2022 Lipase [Catalytic activity/Vol] 37.0 U/L 22-51 [facility] Laboratory - CoagulationOrde red By: Conner Griffith on 10-26-2022 PT Coag (PPP) [Time] 10.6 s 9.0-12.9 [facility] Laboratory - UrinalysisOrder ed By: Conner Griffith on 10-26-2022 Hyaline casts LM Ql (Urine sed) None seen [LPF] 0-8 [facility] Lactic Acidon 10-26-2022 Lactate [Moles/Vol] 1.0 mmol/L Normal 0.5-2.2 [facility] Comment on above: Result Comment: PERF ORMED BY: [place] [address] PATHOLOGIST AUTO HAULER ROOSEVELT KEYES M.D. Performed By: #### H EPATIC, CBC, BMP, LIPASE #### [address] Leukocytes [#/volume] correc jun for nucleated erythrocytes in Blood by Automated counOrdered By: Conner Griffith on 10-26-2022 WBC corrected for nucl RBC Auto (Bld) [#/Vol] 6.3 10*3/uL 3.8-11.6 [facility] Lipaseon 10-26-2022 Lipase [Catalytic activity/Vol] 37.0 U/L Normal 22-51 [facility] Comment on above: Result Comment: PERF ORMED BY: [facility] [address] [place] [address] PATHOLOGIST AUTO HAULER ROOSEVELT KEYES M.D. Performed By: #### H EPATIC, CBC, BMP, LIPASE #### [place] [address] Lymphocytes Auto (Bld) [#/Vo l]Ordered By: Conner Griffith on 10-26-2022 Lymphocytes (Bld) [#/Vol] 1.9 10*3/uL 1.00-4.8 [facility] Lymphocytes/100 WBC Auto (Bl d)Ordered By: Conner Griffith on 10-26-2022 Lymphocytes/100 WBC (Bld) 29.7 % . [facility] MCH Auto (RBC) [Entitic mass ]Ordered By: Conner Griffith on 10-26-2022 MCH (RBC) [Entitic mass] 29.3 pg 24.7-34.3 [facility] MCHC Auto (RBC) [Mass/Vol]Or dered By: Conner Griffith on 10-26-2022 MCHC (RBC) [Mass/Vol] 33.1 g/dL 32.0-35.0 [facility] MCV Auto (RBC) [Entitic vol] Ordered By: Conner Griffith on 10-26-2022 MCV (RBC) [Entitic vol] 88.5 fL 80-100 [facility] Monocyte distribution width [Entitic volume] in Blood by AutomatedOrdered By: Conner Griffith on 10-26-2022 Monocyte distribution width Auto (Bld) [Entitic vol] 16.27 % 0.00-20.00 [facility] Monocytes Auto (Bld) [#/Vol] Ordered By: Conner Griffith on 10-26-2022 Monocytes (Bld) [#/Vol] 0.4 10*3/uL 0.0-0.8 [facility] Monocytes/100 WBC Auto (Bld) Ordered By: Conner Griffith on 10-26-2022 Monocytes/100 WBC (Bld) 7.1 % . [facility] Neutrophils Auto (Bld) [#/Vo l]Ordered By: Conner Griffith on 10-26-2022 Neutrophils (Bld) [#/Vol] 3.7 10*3/uL 1.8-7.7 [facility] Neutrophils/100 WBC Auto (Bl d)Ordered By: Conner Griffith on 10-26-2022 Neutrophils/100 WBC (Bld) 59.3 % . [facility] Nitrite Test strip Ql (U)Ord ered By: Conner Griffith on 10-26-2022 Nitrite Ql (U) Negative Negative [facility] No Panel InformationOrdered By: Conner Griffith on 10-26-2022 Estimated GFR () > 60 mL/Min [facility] Comment on above: GFR estimated refere nce range: According to KDOQI guidelines, <60 ml/min/1.73m2 is sufficient to diagnose a patient with chronic kidney disease. Pharmacy Creatinine Clearance (Chem 93.01 [facility] Nucleated erythrocytes [Pres ence] in Blood by Automated countOrdered By: Conner Griffith on 10-26-2022 Nucleated RBC Auto Ql (Bld) 0.3 /100{WBC} 0-0.5 [facility] Partial Thromboplastin Timeo n 10-26-2022 aPTT Coag (Bld) [Time] 30.8 s Normal 25.1-36.5 [facility] Comment on above: Result Comment: PERF ORMED BY: [place] [address] PATHOLOGIST AUTO HAULER ROOSEVELT KEYES M.D. Performed By: #### H EPATIC, CBC, BMP, LIPASE #### [address] Platelet mean volume Auto (B ld) [Entitic vol]Ordered By: Conner Griffith on 10-26-2022 Platelet mean volume (Bld) [Entitic vol] 7.5 fL 6.3-10.7 [facility] Platelet poor plasma interna tional normalized ratio (INR) by coagulation assay (relatOrdered By: Conner Griffith on 10-26-2022 INR Coag (PPP) [Relative time] 0.9 {INR} [facility] Comment on above: INR Therapeutic Rang e [...] (Bld) [#/Vol] 379 10*3/uL 150-450 [facility] Protein Auto test strip (U) [Mass/Vol]Ordered By: Conner Griffith on 10-26-2022 Protein (U) [Mass/Vol] Negative Negative [facility] Protein [Mass/volume] in Ser um or PlasmaOrdered By: Conner Griffith on 10-26-2022 Protein [Mass/Vol] 6.8 g/dL 6.1-7.9 [facility] Prothrombin Time INRon 10-26 INR Coag (PPP) [Relative time] 0.9 {INR} Normal [facility] Comment on above: Result Comment: INR Therapeutic [...] #### H EPATIC, CBC, BMP, LIPASE #### [facility] [address] PT Coag (PPP) [Time] 10.6 s Normal 9.0-12.9 [facility] Comment on above: Performed By: #### H EPATIC, CBC, BMP, LIPASE #### [facility] [address] RBC Auto (Bld) [#/Vol]Ordere d By: Conner Griffith on 10-26-2022 RBC (Bld) [#/Vol] 4.14 10*6/uL 3.60-5.00 [facility] Serum or plasma alanine cooley otransferase measurement without P-5'-P (enzymatic activiOrdered By: Conner Griffith on 10-26-2022 ALT No additional P-5'-P [Catalytic activity/Vol] 18 U/L 10-60 [facility] Serum or plasma albumin/glob ulin mass ratioOrdered By: Conner Griffith on 10-26-2022 Albumin/Globulin [Mass ratio] 1.1 {ratio} [facility] Serum or plasma alkaline augustin sphatase measurement (enzymatic activity/volume)Ordered By: Conner Griffith on 10-26-2022 ALP [Catalytic activity/Vol] 121 U/L 32-92 [facility] Serum or plasma anion gap de terminationOrdered By: Conner Griffith on 10-26-2022 Anion gap [Moles/Vol] 11.3 mmol/L 6.0-15.0 [facility] Serum or plasma aspartate am inotransferase measurement (enzymatic activity/volume)Ordered By: Conner Griffith on 10-26-2022 AST [Catalytic activity/Vol] 19 U/L 10-42 [facility] Serum or plasma calcium julee urement (mass/volume)Ordered By: Conner Griffith on 10-26-2022 Calcium [Mass/Vol] 8.9 mg/dL 8.2-10.2 [facility] Serum or plasma chloride julio surement (moles/volume)Ordered By: Conner Griffith on 10-26-2022 Chloride [Moles/Vol] 108 mmol/L 95-114 [facility] Serum or plasma glucose julee [...] on 10-26-2022 Potassium [Moles/Vol] 3.4 mmol/L 3.5-5.1 [facility] Serum or plasma sodium measu rement (moles/volume)Ordered By: Conner Griffith on 10-26-2022 Sodium [Moles/Vol] 141 mmol/L 136-146 [facility] Serum or plasma total biliru bin measurement (mass/volume)Ordered By: Conner Griffith on 10-26-2022 Bilirubin [Mass/Vol] 0.4 mg/dL 0.3-1.2 [facility] Serum or plasma total carbon dioxide measurement (moles/volume)Ordered By: Conner Griffith on 10-26-2022 CO2 [Moles/Vol] 25.1 mmol/L 22.0-30.0 [facility] Serum or plasma urea nitroge n measurement (mass/volume)Ordered By: Conner Griffith on 10-26-2022 Urea nitrogen [Mass/Vol] 18 mg/dL 9-23 [facility] Specific gravity Auto test s trip (U) [Rel density]Ordered By: Conner Griffith on 10-26-2022 Specific gravity (U) [Rel density] 1.019 1.001-1.030 [facility] Squamous epithelial cells de tection in urine sediment by light microscopyOrdered By: Conner Griffith on 10-26-2022 Epithelial cells.squamous LM Ql (Urine sed) 1-2 [HPF] 0-2 [facility] Urine bacteria detection by automated methodOrdered By: Conner Griffith on 10-26-2022 Bacteria Auto Ql (U) None seen None Seen [facility] Urine clarity by refractomet ry automatedOrdered By: Conner Griffith on 10-26-2022 Clarity Refractometry automated (U) Clear Clear [facility] Urine glucose measurement by automated test strip (mass/volume)Ordered By: Conner Grififth on 10-26-2022 Glucose Auto test strip (U) [Mass/Vol] Normal mg/dL Normal [facility] Urine hemoglobin detection b y automated test stripOrdered By: Conner Griffith on 10-26-2022 Hemoglobin Auto test strip Ql (U) Negative Negative [facility] Urine lactic acid measuremen tOrdered By: Conner Griffith on 10-26-2022 Lactate (U) [Moles/Vol] 1.0 mmol/L 0.5-2.2 [facility] Urine leukocyte esterase det ection by automated test stripOrdered By: Conner Griffith on 10-26-2022 Leukocyte esterase Auto test strip Ql (U) 1+ Negative [facility] Urobilinogen Auto test strip (U) [Mass/Vol]Ordered By: Conner Griffith on 10-26-2022 Urobilinogen (U) [Mass/Vol] Normal mg/dL Normal [facility] WBC Auto (Bld) [#/Vol]Ordere d By: Conner Griffith on 10-26-2022 WBC (Bld) [#/Vol] 6.3 10*3/uL 3.8-11.6 [facility] pH Auto test strip (U)Ordere d By: Conner Griffith on 10-26-2022 pH (U) 6.5 [pH] 5.0-9.0 [facility] Auth for Release of Medical Recordson 10-25-2022 Auth for Release of Medical Records [id number]#[id number]:[address] [facility] CBC AUTO DIFFon 09-21-2022 BASO # 0.0 103/ul Normal 0.0-0.1 [facility] Comment on above: Performed By: #### C BC ####[facility] Ifujenjkul[address] [place], [place] [address]Dr. Tadeo Smyth Basophils/100 WBC (Bld) 0.4 % Normal 0.2-2.0 [facility] Comment on above: Performed By: #### C BC ####[facility] [address]icjtr[address] [place] [address]Dr. Tadeo Smyth EO # 0.1 103/ul Normal 0.0-0.7 [facility] Comment on above: Performed By: #### C BC ####[facility] Vnzbeumhdy[address] [place] [address]Dr. Tadeo Smyth Eosinophils/100 WBC (Bld) 1.8 % Normal 0.9-7.0 [facility] Comment on above: Performed By: #### C BC ####[facility] Mjftfjurcg50[address] [place] [address]Dr. Tadeo Smyth Erythrocyte distribution width (RBC) [Ratio] 13.8 % Normal 11.0-15.0 [facility] Comment on above: Performed By: #### C BC ####[facility] Qkiojoxzbe469[address] [place], [place] [address]Dr. Tadeo Smyth Hematocrit (Bld) [Volume fraction] 41.0 % Normal 36.0-48.0 [facility] Comment on above: Performed By: #### C BC ####[facility] Canymsxtqe597[address] [place], [place] [address]Dr. Tadeo Smyth Hemoglobin (Bld) [Mass/Vol] 13.3 g/dL Normal 12.0-16.0 [facility] Comment on above: Performed By: #### C BC ####[facility] Lztuygirkf750[address] [place], [place] [address]Dr. Tadeo Smyth IG # 0.01 10e3/ul Normal 0.00-0.03 [facility] Comment on above: Performed By: #### C BC ####[facility] Vjlcstefdd0725[address] [place], [place] [address]Dr. Tadeo Smyth IG % 0.1 % Normal 0.0-0.5 [facility] Comment on above: Performed By: #### C BC ####[facility] Hfiiyrecws2665[address] [place], [place] [address]Dr. Tadeo Smyth LYMPH # 1.7 103/ul Normal 1.2-3.8 [facility] Comment on above: Performed By: #### C BC ####[facility] Bimovavvmk264[address] [place], [place] [address]Dr. Tadeo Smyth Lymphocytes/100 WBC (Bld) 24.8 % Normal 20.5-60.0 [facility] Comment on above: Performed By: #### C BC ####[facility] Wevdybrhbv4334[address] [place], [place] [address]Dr. Tadeo Smyth MANUAL DIFF REQ NO Normal [facility] Comment on above: Performed By: #### C BC ####[facility] Nkkzkvomcr5[address] [place] [id number]. Tadeo Haja MCH (RBC) [Entitic mass] 29.0 pg Normal 26.7-34.0 [facility] Comment on above: Performed By: #### C BC ####[facility] Efagccnxrw5751 [place] [id number]. Tadeo Haja MCHC (RBC) [Mass/Vol] 32.4 g/dL Normal 29.9-35.2 [facility] Comment on above: Performed By: #### C BC ####[facility] Cqvhufikly3654 [place] [id number]. Margotnicole Smyth MCV (RBC) [Entitic vol] 89.3 fL Normal 81.0-99.0 [facility] Comment on above: Performed By: #### C BC ####[facility] Xasusnjomj99[address] [place], [place] [address]Dr. Tadeo Smyth MONO # 0.5 103/ul Normal 0.3-0.8 [facility] Comment on above: Performed By: #### C BC ####[facility] Dvkqnwlnrv7258[address] [place], [place] [address]Dr. Margotnicole Smyth Monocytes/100 WBC (Bld) 6.9 % Normal 1.7-12.0 [facility] Comment on above: Performed By: #### C BC ####[facility] Beycbiirek0108[address] [place], [place] [address]Dr. Tadeo Smyth NEUT # 4.5 103/ul Normal 1.4-6.5 [facility] Comment on above: Performed By: #### C BC ####[facility] Pbqsdvokuj6[address] [place], [place] [address]Dr. Tadeo Smyth Neutrophils/100 WBC (Bld) 66.0 % Normal 43.0-75.0 [facility] Comment on above: Performed By: #### C BC ####[facility] Cchlavsupf12[address] [place], [place] [address]Dr. Tadeo Smyth Platelet mean volume (Bld) [Entitic vol] 8.8 fL Critically low 9.5-13.5 [facility] Comment on above: Performed By: #### C BC ####[facility] Ihdcjqbfcr0[address] [place] [address]Dr. Tadeo Haja PLT 384 103/ul Normal 150-450 [facility] Comment on above: Performed By: #### C BC ####[facility] Owanqetmdy5501 [place] [phone]. Tadeo Smyth RBC 4.59 106/ul Normal 4.20-5.40 [facility] Comment on above: Performed By: #### C BC ####[facility] Htpgppuaan4345 [place] [phone]. Tadeo Haja WBC 6.8 103/ul Normal 4.0-11.0 [facility] Comment on above: Performed By: #### C BC ####[facility] Fqsbrrvujg9404[address] [place], [place] [address]Dr. Tadeo Smyth PROF CHEM 8 (BAS METB)on Anion gap [Moles/Vol] 13.8 mmol/L Normal [facility] Comment on above: Performed By: #### B MP ####[facility] Kmpgcmwlhu25[address] [place], [place] [address]Dr. Tadeo Smyth Calcium [Mass/Vol] 9.6 mg/dL Normal 8.5-10.1 [facility] Comment on above: Performed By: #### B MP ####[facility] Ivcaqgdizf6745[address] [place], [place] [address]Dr. Tadeo Smyth Chloride [Moles/Vol] 106 mmol/L Normal 98-107 [facility] Comment on above: Performed By: #### B MP ####[facility] Ukjsryxnhz166[address] [place], [place] [address]Dr. Tadeo Smyth CO2 [Moles/Vol] 25.9 mmol/L Normal 21.0-32.0 [facility] Comment on above: Performed By: #### B MP ####[facility] Zqkvnjthor269[address] [place], [place] [address]Dr. Tadeo Smyth Creatinine [Mass/Vol] 0.92 mg/dL Normal 0.55-1.02 [facility] Comment on above: Performed By: #### B MP ####[facility] Yigaqphqid55[address] [place] [address]Dr. Margotnicole Haja EGFR-AF SWISS >60 Normal >=60 [facility] Comment on above: Performed By: #### B MP ####[facility] Jkauaduwtk6[address] [place] [address]Dr. Margotnicole Haja EGFR-NON AF SWISS >60 Normal >=60 [facility] Comment on above: Performed By: #### B MP ####[facility] Zebjfvzkpp6271 [place] [address]Dr. Tadeo Smyth Glucose [Mass/Vol] 98 mg/dL Normal 74-106 [facility] Comment on above: Performed By: #### B MP ####[facility] Oiiaxgoxzx2016[address] [place], [place] [address]Dr. Tadeo Smyth Potassium [Moles/Vol] 3.7 mmol/L Normal 3.5-5.1 [facility] Comment on above: Performed By: #### B MP ####[facility] Vdwzgbdicq6778[address] [place], [place] [address]Dr. Tadeo Smyth Sodium [Moles/Vol] 142 mmol/L Normal 136-145 [facility] Comment on above: Performed By: #### B MP ####[facility] Ykkvxjqywl112[address] [place], [place] [address]Dr. Tadeo Smyth Urea nitrogen [Mass/Vol] 19.0 mg/dL Critically high 7.0-18.0 [facility] Comment on above: Performed By: #### B MP ####[facility] Nxjqguzrir5807[address] [place], [place] [address]Dr. Tadeo Smyth Urea nitrogen/Creatinine [Mass ratio] 20.7 mg/mg Normal [facility] Comment on above: Performed By: #### B MP ####[facility] Tamzvocspl185[address] [place], [place] [address]Dr. Tadeo Smyth XR KUB 1 VIEWon 09-21-2022 XR KUB 1 VIEW Normal [facility] Lab Reportson 09-20-2022 Lab Reports [id number]#[id number]:[address] [facility] RAD - CT Reporton 09-20-2022 RAD - CT Report [id number]#1.00CD:[address] [facility] RAD - MISCon 09-20-2022 RAD - MISC [id number]#1.00CD:[address] [facility] AMYLASEon 09-18-2022 Amylase [Catalytic activity/Vol] 58 U/L Normal 25-115 [facility] Comment on above: Performed By: #### L IPA, CMP, VIJI ####[facility] Klqlkgzthr4623[address] [place], [place] [address]Dr. Tadeo Smyth CBC AUTO DIFFon 09-18-2022 BASO # 0.0 103/ul Normal 0.0-0.1 [facility] Comment on above: Performed By: #### C BC ####[facility] Zpvnfbbikw2654[address] [place], [place] [address]Dr. Tadeo Smyth Basophils/100 WBC (Bld) 0.3 % Normal 0.2-2.0 [facility] Comment on above: Performed By: #### C BC ####[facility] Aeqteovosa3433[address] [place], [place] [address]Dr. Tadeo Smyth EO # 0.1 103/ul Normal 0.0-0.7 [facility] Comment on above: Performed By: #### C BC ####[facility] Ljzkesgpam5[address] [place], [place] [address]Dr. Tadeo Smyth Eosinophils/100 WBC (Bld) 1.8 % Normal 0.9-7.0 [facility] Comment on above: Performed By: #### C BC ####[facility] Gufuvucmqp4413[address] [place], [place] [address]Dr. Tadeo Smyth Erythrocyte distribution width (RBC) [Ratio] 13.7 % Normal 11.0-15.0 [facility] Comment on above: Performed By: #### C BC ####[facility] Doazpdmtwi7737[address] [place], [place] [address]Dr. Margotnicole Smyth Hematocrit (Bld) [Volume fraction] 37.4 % Normal 36.0-48.0 [facility] Comment on above: Performed By: #### C BC ####[facility] Uneexqaqqx[address] [place] [address]Dr. Margotnicole Smyth Hemoglobin (Bld) [Mass/Vol] 12.3 g/dL Normal 12.0-16.0 [facility] Comment on above: Performed By: #### C BC ####[facility] Japnuljdpa60[address] [place] [address]Dr. Tadeo Smyth IG # 0.02 10e3/ul Normal 0.00-0.03 [facility] Comment on above: Performed By: #### C BC ####[facility] Zuaruhvewn2[address] [place] [address]Dr. Tadeo Smyth IG % 0.3 % Normal 0.0-0.5 [facility] Comment on above: Performed By: #### C BC ####[facility] Bafmvrbgbw6964[address] [place], [place] [address]Dr. Tadeo Smyth LYMPH # 2.2 103/ul Normal 1.2-3.8 [facility] Comment on above: Performed By: #### C BC ####[facility] Fseyqxcdmw7501[address] [place], [place] [address]Dr. Tadeo Smyth Lymphocytes/100 WBC (Bld) 29.3 % Normal 20.5-60.0 [facility] Comment on above: Performed By: #### C BC ####[facility] Jakhqldekq8217[address] [place], [place] [address]DrNeo Smyth MANUAL DIFF REQ NO Normal [facility] Comment on above: Performed By: #### C BC ####[facility] Tlqjtmoewt2016[address] [place], [place] [address]Dr. Tadeo Smyth MCH (RBC) [Entitic mass] 29.0 pg Normal 26.7-34.0 [facility] Comment on above: Performed By: #### C BC ####[facility] Tlreyxcdkx8025[address] [place], [place] [address]Dr. Tadeo Smyth MCHC (RBC) [Mass/Vol] 32.9 g/dL Normal 29.9-35.2 [facility] Comment on above: Performed By: #### C BC ####[facility] Wugdpshcbi45[address] [place] [address]Dr. Tadeo Smyth MCV (RBC) [Entitic vol] 88.2 fL Normal 81.0-99.0 [facility] Comment on above: Performed By: #### C BC ####[facility] Kunlehxrzj0422[address] [place], [place] [address]Dr. Tadeo Smyth MONO # 0.5 103/ul Normal 0.3-0.8 [facility] Comment on above: Performed By: #### C BC ####[facility] Tdytvjszlg2422[address] [place], [place] [address]Dr. Tadeo Smyth Monocytes/100 WBC (Bld) 6.4 % Normal 1.7-12.0 [facility] Comment on above: Performed By: #### C BC ####[facility] Sjopdynpln3570[address] [place], [place] [address]Dr. Tadeo Smyth NEUT # 4.7 103/ul Normal 1.4-6.5 [facility] Comment on above: Performed By: #### C BC ####[facility] Ylnperpheu1113[address] [place], [place] [address]Dr. Tadeo Smyth Neutrophils/100 WBC (Bld) 61.9 % Normal 43.0-75.0 [facility] Comment on above: Performed By: #### C BC ####[facility] Rudearovcd357[address] [place], [place] [address]Dr. Tadeo Smyth Platelet mean volume (Bld) [Entitic vol] 9.0 fL Critically low 9.5-13.5 [facility] Comment on above: Performed By: #### C BC ####[facility] Xvitsxngwz4429[address] [place], [place] [address]Dr. Tadeo Smyth PLT 395 103/ul Normal 150-450 [facility] Comment on above: Performed By: #### C BC ####[facility] Rmlmtzleya8256[address] [place], [place] [address]Dr. Tadeo Smyth RBC 4.24 106/ul Normal 4.20-5.40 [facility] Comment on above: Performed By: #### C BC ####[facility] Pwnmtxqdlo4329[address] [place], [place] [address]Dr. Tadeo Smyth WBC 7.6 103/ul Normal 4.0-11.0 [facility] Comment on above: Performed By: #### C BC ####[facility] Lznwsnuvnx4438[address] [place], [place] [address]Dr. Tadeo Smyth CT ABD/PELV W CONon 09-18-[address] ABD/PELV W CON Normal [facility] ER URINE PROFILEon 3 Bilirubin Ql (U) SMALL Abnormal NEGATIVE [facility] Comment on above: Performed By: #### SANDRO MERCHANTRO ####[facility] Xhcqwotkqa6039[address] [place], [place] [address]Dr. Tadeo Smyth Clarity (U) CLEAR Normal CLEAR [facility] Comment on above: Performed By: #### KAROL MERCHANT ####[facility] Sigolqqtab5504[address] [place], [place] [address]Dr. Tadeo Haja Color (U) DK. YELLOW Normal YELLOW [facility] Comment on above: Performed By: #### KAROL MERCHANT ####[facility] Wcfwzvlfeq234[address] [place], [place] [address]Dr. Margotnicole Smyth ERUAHD A micrscopic examina tion will be performed if indicated. Normal [facility] Comment on above: Performed By: #### KAROL MERCHANT ####[facility] Wjohegzrqp9[address] [place], [place] [address]Dr. Tadeo Smyth Glucose Ql (U) Negative Normal NEGATIVE [facility] Comment on above: Performed By: #### KAROL MERCHANT ####[facility] Kdphpjqgzs559[address] [place], [place] [address]Dr. Margotnicole Haja Hemoglobin Ql (U) SMALL Abnormal NEGATIVE [facility] Comment on above: Performed By: #### SANDRO MERCHANTRO ####[facility] Pfwwdolljm7990[address] [place], [place] [address]Dr. Tadeo Smyth Ketones Ql (U) Negative Normal NEGATIVE [facility] Comment on above: Performed By: #### KAROL MERCHANT ####[facility] Xinsofqlvg9999[address] [place], [place] [address]Dr. Tadeo Smyth LEUKOCYTES Negative Normal NEGATIVE [facility] Comment on above: Performed By: #### SANDRO MERCHANTRO ####[facility] Qwolynjnbj[address] [place] [address]Dr. Tadeo Smyth Nitrite Ql (U) Negative Normal NEGATIVE [facility] Comment on above: Performed By: #### SANDRO MERCHANTRO ####[facility] Aimosnrlag7888[address] [place], [place] [address]Dr. Tadeo Smyth pH (U) 5.5 [pH] Normal 5-9 [facility] Comment on above: Performed By: #### SANDRO MERCHANTRO ####[facility] Nxjcwxbofy77[address] [place], [place] [address]Dr. Tadeo Smyth SPEC GRAVITY >=1.030 Abnormal 1.005-<=1.0 25 [facility] Comment on above: Performed By: #### SANDRO MERCHANTRO ####[facility] Xctyxeeciw8[address] [place], [place] [address]Dr. Tadeo Smyth UA PROTEIN TRACE Normal NEGATIVE/ TRACE [facility] Comment on above: Performed By: #### SANDRO MERCHANTRO ####[facility] Qiilgkcvuv8409[address] [place], [place] [address]Dr. Tadeo Smyth UR MICRO IND INDICATED Normal [facility] Comment on above: Performed By: #### SANDRO MERCHANTRO ####[facility] Pkwxjneqgf8[address] [place], [place] [address]Dr. Tadeo Smyth Urobilinogen Qn (U) 0.2 {Benito'U}/dL Normal 0.2 - 1. 0 [facility] Comment on above: Performed By: #### SANDRO MERCHANTRO ####[facility] Laaumrkkdd4816[address] [place], [place] [address]Dr. Tadeo Smyth LACTATE/LACTIC ACIDon 2022 Lactate [Moles/Vol] 1.1 mmol/L Normal 0.4-1.9 [facility] Comment on above: Performed By: #### L ACT ####[facility] Twsvhvckwj[address] [place] [address]Dr. Tadeo Smyth LIPASEon 09-18-2022 Lipase [Catalytic activity/Vol] 75.0 U/L Normal 73.0-393.0 [facility] Comment on above: Performed By: #### L IPA, CMP, VIJI ####[facility] Nvwpsplufu76[address] [place] [address]Dr. Tadeo Smyth PROF 14(COMP METB)on 023 Albumin [Mass/Vol] 3.4 g/dL Normal 3.4-5.0 [facility] Comment on above: Performed By: #### L IPA, CMP, VIJI ####[facility] Loiwtplpwb[address] [place], [place] [address]Dr. Tadeo Smyth Albumin/Globulin [Mass ratio] 0.9 {ratio} Normal [facility] Comment on above: Performed By: #### L IPA, CMP, VIJI ####[facility] Dcyvrszkgt1884[address] [place], [place] [address]Dr. Tadeo Smyth ALP [Catalytic activity/Vol] 164 U/L Critically high 46-116 [facility] Comment on above: Performed By: #### L IPA, CMP, VIJI ####[facility] Uklucyzxsw9053 [place] [address]Dr. Tadeo Smyth ALT [Catalytic activity/Vol] 29 U/L Normal 14-59 [facility] Comment on above: Performed By: #### L IPA, CMP, VIJI ####[facility] Msqlimxzoc1281 [place] [address]Dr. Tadeo Smyth Anion gap [Moles/Vol] 12.3 mmol/L Normal [facility] Comment on above: Performed By: #### L IPA, CMP, VIJI ####[facility] Sspajyzthq0395 [place] [address]Dr. Tadeo Smyth AST [Catalytic activity/Vol] 30 U/L Normal 15-37 [facility] Comment on above: Performed By: #### L IPA, CMP, VIJI ####[facility] Pvdczmulvy4961 [place] [address]Dr. Tadeo Smyth Bilirubin [Mass/Vol] 0.3 mg/dL Normal 0.2-1.0 [facility] Comment on above: Performed By: #### L IPA, CMP, VIJI ####[facility] Mhqebystdz5101[address] [place], [place] [address]Dr. Tadeo Smyth Calcium [Mass/Vol] 8.9 mg/dL Normal 8.5-10.1 [facility] Comment on above: Performed By: #### L IPA, CMP, VIJI ####[facility] Eicjeqeeul366[address] [place], [place] [address]Dr. Tadeo Smyth Chloride [Moles/Vol] 103 mmol/L Normal 98-107 [facility] Comment on above: Performed By: #### L IPA, CMP, VIJI ####[facility] Ulpxesxobv9984[address] [place], [place] [address]Dr. Tadeo Smyth CO2 [Moles/Vol] 27.8 mmol/L Normal 21.0-32.0 [facility] Comment on above: Performed By: #### L IPA, CMP, VIJI ####[facility] Nmnmhdjqcj27[address] [place], [place] [address]Dr. Tadeo Smyth Creatinine [Mass/Vol] 0.89 mg/dL Normal 0.55-1.02 [facility] Comment on above: Performed By: #### L IPA, CMP, VIJI ####[facility] Vfycbpqpwf[address] [place], [place] [address]Dr. Tadeo Smyth EGFR-AF SWISS >60 Normal >=60 [facility] Comment on above: Performed By: #### L IPA, CMP, VIJI ####[facility] Dkcdvutxfe65[address] [place], [place] [address]Dr. Tadeo Smyth EGFR-NON AF SWISS >60 Normal >=60 [facility] Comment on above: Performed By: #### L IPA, CMP, VIJI ####[facility] Yyhgyagevj086[address] [place], [place] [address]Dr. Tadeo Smyth Globulin (S) [Mass/Vol] 3.9 g/dL Normal [facility] Comment on above: Performed By: #### L IPA CMP, VIJI ####[facility] Jjxvtirmoy27[address] [place] [address]Dr. Tadeo Smyth Glucose [Mass/Vol] 96 mg/dL Normal 74-106 [facility] Comment on above: Performed By: #### L IPA CMP, VIJI ####[facility] Mcexfvnwlo7920 [place] [address]Dr. Tadeo Smyth Potassium [Moles/Vol] 4.1 mmol/L Normal 3.5-5.1 [facility] Comment on above: Performed By: #### L IPA CMP, VIJI ####[facility] Zobnwqcfzp4444 [place] [address]Dr. Tadeo Smyth Protein [Mass/Vol] 7.3 g/dL Normal 6.4-8.2 [facility] Comment on above: Performed By: #### L ISABEL CMP, VIJI ####[facility] Ankvrmttta7984 [place] [address]Dr. Tadeo Smyth Sodium [Moles/Vol] 139 mmol/L Normal 136-145 [facility] Comment on above: Performed By: #### L IPA CMP, VIJI ####[facility] Oxjfgrjogz6468 [place] [address]Dr. Tadeo Smyth Urea nitrogen [Mass/Vol] 19.0 mg/dL Critically high 7.0-18.0 [facility] Comment on above: Performed By: #### L IPA CMP, VIJI ####[facility] Jqwwoaqvja95[address] [place] [address]Dr. Tadeo Smyth Urea nitrogen/Creatinine [Mass ratio] 21.3 mg/mg Normal [facility] Comment on above: Performed By: #### L IPA CMP, VIJI ####[facility] Zpyifsakog10[address] [place] [address]Dr. Tadeo Smyth URINE MICROSCOPIC ONLYon BACTERIA TRACE Abnormal NONE SEEN [facility] Comment on above: Performed By: #### KAROL MERCHANT ####[facility] Xlcicgxuet[address] [place], [place] [address]Dr. Tadeo Smyth Bacteria identified Cx Nom (U) NOT INDICATED Normal [facility] Comment on above: Performed By: #### KAROL MERCHANT ####[facility] Fiebzqwtuk5[address] [place], [place] [address]Dr. Tadeo Smyth CAST NONE SEEN Normal NONE SEEN [facility] Comment on above: Performed By: #### KAROL MERCHANT ####[facility] Njelykuiji94[address] [place], [place] [address]Dr. Tadeo Smyth Crystals LM Nom (Urine sed) SEEN Abnormal NONE SEEN [facility] Comment on above: Performed By: #### KAROL MERCHANT ####[facility] Oswxjeorll4235[address] [place], [place] [address]Dr. Tadeo Smyth Epithelial cells LM Ql (Urine sed) RARE Normal NONE SEEN /RARE [facility] Comment on above: Performed By: #### KAROL MERCHANT ####[facility] Xdqfenlgqv5736[address] [place], [place] [address]Dr. Tadeo Smyth MUCOUS TRACE Abnormal NONE SEEN [facility] Comment on above: Performed By: #### KAROL MERCHANT ####[facility] Jnmfoqlnhf8980[address] [place], [place] [address]Dr. Tadeo Smyth RBC 0-2 Normal 0-2 [facility] Comment on above: Performed By: #### KAROL MERCHANT ####[facility] Utupcxosom[address] [place], [place] [address]Dr. Tadeo Smyth WBC 0-2 Abnormal NONE SEEN [facility] Comment on above: Performed By: #### SANDRO MERCHANTRO ####[facility] Kiaqrhcark[address] [place], [place] [address]Dr. Tadeo Smyth CBC AUTO DIFFon 09-14-2022 BASO # 0.0 103/ul Normal 0.0-0.1 [facility] Comment on above: Performed By: #### C BC ####[facility] Owsrhnpvqw[address] [place], [place] [address]Dr. Tadeo Smyth Basophils/100 WBC (Bld) 0.3 % Normal 0.2-2.0 [facility] Comment on above: Performed By: #### C BC ####[facility] Cnyzrcmgqn[address] [place], [place] [address]Dr. Tadeo Smyth EO # 0.2 103/ul Normal 0.0-0.7 [facility] Comment on above: Performed By: #### C BC ####[facility] Xzjxpyahtj60[address] [place], [place] [address]Dr. Tadeo Smyth Eosinophils/100 WBC (Bld) 1.1 % Normal 0.9-7.0 [facility] Comment on above: Performed By: #### C BC ####[facility] Tbuqmnqlyv4038[address] [place], [place] [address]Dr. Tadeo Smyth Erythrocyte distribution width (RBC) [Ratio] 13.7 % Normal 11.0-15.0 [facility] Comment on above: Performed By: #### C BC ####[facility] Skilwsvoan05[address] [place], [place] [address]Dr. Tadeo Smyth Hematocrit (Bld) [Volume fraction] 41.3 % Normal 36.0-48.0 [facility] Comment on above: Performed By: #### C BC ####[facility] Utsacsppeq609[address] [place], [place] [address]Dr. Tadeo Smyth Hemoglobin (Bld) [Mass/Vol] 13.6 g/dL Normal 12.0-16.0 [facility] Comment on above: Performed By: #### C BC ####[facility] Rfhqyioajm4428[address] [place], [place] [address]Dr. Tadeo Smyth IG # 0.05 10e3/ul Critically high 0.00-0.03 [facility] Comment on above: Performed By: #### C BC ####[facility] Xkljoiziua8517[address] [place], [place] [address]Dr. Tadeo Smyth IG % 0.4 % Normal 0.0-0.5 [facility] Comment on above: Performed By: #### C BC ####[facility] Pfxmvslrso4745[address] [place], [place] [address]DrNeo Smyth LYMPH # 2.2 103/ul Normal 1.2-3.8 [facility] Comment on above: Performed By: #### C BC ####[facility] Qxzcrtljoq0256 [place] [address]DrNeo Smyth Lymphocytes/100 WBC (Bld) 16.3 % Critically low 20.5-60.0 [facility] Comment on above: Performed By: #### C BC ####[facility] Ricoumihrj2855[address] [place], [place] [address]DrNeo Smyth MANUAL DIFF REQ NO Normal [facility] Comment on above: Performed By: #### C BC ####[facility] Untcdhmuet618[address] [place], [place] [address]DrNeo Smyth MCH (RBC) [Entitic mass] 28.9 pg Normal 26.7-34.0 [facility] Comment on above: Performed By: #### C BC ####[facility] Tezewldxcc9429[address] [place], [place] [address]DrNeo Smyth MCHC (RBC) [Mass/Vol] 32.9 g/dL Normal 29.9-35.2 [facility] Comment on above: Performed By: #### C BC ####[facility] Njfzbpfssk9[address] [place], [place] [address]DrNeo Smyth MCV (RBC) [Entitic vol] 87.9 fL Normal 81.0-99.0 [facility] Comment on above: Performed By: #### C BC ####[facility] Fdhudgfvur5134[address] [place], [place] [address]DrNeo Smyth MONO # 0.7 103/ul Normal 0.3-0.8 [facility] Comment on above: Performed By: #### C BC ####[facility] Iievhkzdce2780[address] [place], [place] [address]DrNeo Smyth Monocytes/100 WBC (Bld) 5.1 % Normal 1.7-12.0 [facility] Comment on above: Performed By: #### C BC ####[facility] Zxkrgxczni7477[address] [place], [place] [address]DrNeo Smyth NEUT # 10.3 103/ul Critically high 1.4-6.5 [facility] Comment on above: Performed By: #### C BC ####[facility] Rbfbfpiqcr3482 [place] [address]Dr. Tadeo Smyth Neutrophils/100 WBC (Bld) 76.8 % Critically high 43.0-75.0 [facility] Comment on above: Performed By: #### C BC ####[facility] Asokkaefqk9856 [place] [address]Dr. Tadeo Smyth Platelet mean volume (Bld) [Entitic vol] 8.8 fL Critically low 9.5-13.5 [facility] Comment on above: Performed By: #### C BC ####[facility] Wmhepjicwe5460[address] [place], [place] [address]Dr. Tadeo Haja PLT 438 103/ul Normal 150-450 [facility] Comment on above: Performed By: #### C BC ####[facility] Gkkfanneok8808[address] [place], [place] [address]Dr. Tadeo Smyth RBC 4.70 106/ul Normal 4.20-5.40 [facility] Comment on above: Performed By: #### C BC ####[facility] Yicdnuvpbr667[address] [place], [place] [address]Dr. Tadeo Smyth WBC 13.4 103/ul Critically high 4.0-11.0 [facility] Comment on above: Performed By: #### C BC ####[facility] Algknznaiw6416[address] [place], [place] [address]Dr. Tadeo Haja ER URINE PROFILEon 3 Bilirubin Ql (U) Negative Normal NEGATIVE [facility] Comment on above: Performed By: #### SANDRO MERCHANTRO ####[facility] Tiwhuddhud8925[address] [place], [place] [address]DrNeo Smyth Clarity (U) CLEAR Normal CLEAR [facility] Comment on above: Performed By: #### RANDI MERCHANTICRO ####[facility] Lqznbhxeoq7168 [place] [address]DrNeo Smyth Color (U) LT. YELLOW Normal YELLOW [facility] Comment on above: Performed By: #### RANDI MERCHANTICRO ####[facility] Aodtbpdvxn8230 [place] [address]Dr. Tadeo ENG A micrscopic examina tion will be performed if indicated. Normal [facility] Comment on above: Performed By: #### Matthew FRANCISCO UMICRO ####[facility] Urhhdxpjis6780 [place] [address]Dr. Tadeo Smyth Glucose Ql (U) Negative Normal NEGATIVE [facility] Comment on above: Performed By: #### Matthew FRANCISCO UMICRO ####[facility] Lwuhfvjsuq248[address] [place], [place] [address]Dr. Tadeo Smyth Hemoglobin Ql (U) TRACE-INTACT Abnormal NEGATIVE [facility] Comment on above: Performed By: #### Matthew FRANCISCO UMICRO ####[facility] Rinafwxktu4369[address] [place], [place] [address]Dr. Tadeo Smyth Ketones Ql (U) Negative Normal NEGATIVE [facility] Comment on above: Performed By: #### RANDI MERCHANTICRO ####[facility] Yrrvqrymyg9627[address] [place], [place] [address]Dr. Tadeo Smyth LEUKOCYTES Negative Normal NEGATIVE [facility] Comment on above: Performed By: #### Matthew FRANCISCO UMICRO ####[facility] Yacwuugjbu5536[address] [place], [place] [address]Dr. Tadeo Smyth Nitrite Ql (U) Negative Normal NEGATIVE [facility] Comment on above: Performed By: #### Matthew FRANCISCO UMICRO ####[facility] Cjlshvkpgz46[address] [place], [place] [address]Dr. Tadeo Smyth pH (U) 6.5 [pH] Normal 5-9 [facility] Comment on above: Performed By: #### SANDRO MERCHANTRO ####[facility] Zqkkunehfr4310 [place] [address]Dr. Tadeo Smyth SPEC GRAVITY 1.020 Normal 1.005-<=1.0 25 [facility] Comment on above: Performed By: #### SANDRO MERCHANTRO ####[facility] Mafuscwlyu7161 [place] [address]Dr. Tadeo Smyth UA PROTEIN Negative Normal NEGATIVE/ TRACE [facility] Comment on above: Performed By: #### KAROL MERCHANT ####[facility] Iysnfypdsc9395 [place] [address]Dr. Tadeo Smyth UR MICRO IND INDICATED Normal [facility] Comment on above: Performed By: #### KAROL MERCHANT ####[facility] Eezbjslfnw2922 [place] [address]Dr. Tadeo Smyth Urobilinogen Qn (U) 0.2 {Benito'U}/dL Normal 0.2 - 1. 0 [facility] Comment on above: Performed By: #### KAROL MERCHANT ####[facility] Usqviqjven4798 [place] [address]Dr. Tadeo Smyth LIPASEon 09-14-2022 Lipase [Catalytic activity/Vol] 117.0 U/L Normal 73.0-393.0 [facility] Comment on above: Performed By: #### H STROPN, CMP, LIPA ####[facility] Isektzlimw3527 [place] [address]Dr. Tadeo Smyth PROF 14(COMP METB)on 023 Albumin [Mass/Vol] 3.5 g/dL Normal 3.4-5.0 [facility] Comment on above: Performed By: #### H STROPN, CMP, LIPA ####[facility] Uyycefbvaq3142 [place] [address]Dr. Tadeo Smyth Albumin/Globulin [Mass ratio] 0.8 {ratio} Normal [facility] Comment on above: Performed By: #### H STROPN, CMP, LIPA ####[facility] Bmwliawkiu7954 [place] [address]Dr. Tadeo Smyth ALP [Catalytic activity/Vol] 180 U/L Critically high 46-116 [facility] Comment on above: Performed By: #### H STROPN, CMP, LIPA ####[facility] Zjdvdakvtr0626 [place] [address]Dr. Tadeo Smyth ALT [Catalytic activity/Vol] 25 U/L Normal 14-59 [facility] Comment on above: Performed By: #### H STROPN, CMP, LIPA ####[facility] Aakydqnqar4862 [place] [address]Dr. Tadeo Smyth Anion gap [Moles/Vol] 14.4 mmol/L Normal Th e [facility] Comment on above: Performed By: #### H STROPN, CMP, LIPA ####[facility] Bvtydyopyo0366 [place] [address]Dr. Tadeo Smyth AST [Catalytic activity/Vol] 14 U/L Critically low 15-37 [facility] Comment on above: Performed By: #### H STROPN, CMP, LIPA ####[facility] Allxxsnhwv0405 [place] [address]Dr. Tadeo Smyth Bilirubin [Mass/Vol] 0.2 mg/dL Normal 0.2-1.0 [facility] Comment on above: Performed By: #### H STROPN, CMP, LIPA ####[facility] Skmcpvyfzv[address] [place], [place] [address]Dr. Tadeo Smyth Calcium [Mass/Vol] 9.4 mg/dL Normal 8.5-10.1 [facility] Comment on above: Performed By: #### H STROPN, CMP, LIPA ####[facility] Wsexrvbgvt3157 [place] [address]Dr. Tadeo Smyth Chloride [Moles/Vol] 107 mmol/L Normal 98-107 [facility] Comment on above: Performed By: #### H STROPN, CMP, LIPA ####[facility] Gvsbazrsxx4912 [place] [address]Dr. Tadeo Smyth CO2 [Moles/Vol] 23.9 mmol/L Normal 21.0-32.0 [facility] Comment on above: Performed By: #### H STROPN, CMP, LIPA ####[facility] Vutztwjjwf2537 [place] [address]Dr. Tadeo Smyth Creatinine [Mass/Vol] 0.91 mg/dL Normal 0.55-1.02 [facility] Comment on above: Performed By: #### H STROPN, CMP, LIPA ####[facility] Qngonbzmsy5072 [place] [address]Dr. Tadeo Smyth EGFR-AF SWISS >60 Normal >=60 [facility] Comment on above: Performed By: #### H STROPN, CMP, LIPA ####[facility] Bbavtkyilo3258 [place] [address]Dr. Tadeo Smyth EGFR-NON AF SWISS >60 Normal >=60 [facility] Comment on above: Performed By: #### H STROPN, CMP, LIPA ####[facility] Ridrptixji1896 [place] [address]Dr. Tadeo Smyth Globulin (S) [Mass/Vol] 4.2 g/dL Normal [facility] Comment on above: Performed By: #### H STROPN, CMP, LIPA ####[facility] Ahlswlibsb2369 [place] [address]Dr. Margotnicole Haja Glucose [Mass/Vol] 101 mg/dL Normal 74-106 [facility] Comment on above: Performed By: #### H STROPN, CMP, LIPA ####[facility] Gzmsykudqp0125 [place] [address]Dr. Tadeo Smyth Potassium [Moles/Vol] 3.3 mmol/L Critically low 3.5-5.1 [facility] Comment on above: Performed By: #### H STROPN, CMP, LIPA ####[facility] Ncphqbqcbr0116 [place] [address]Dr. Tadeo Smyth Protein [Mass/Vol] 7.7 g/dL Normal 6.4-8.2 [facility] Comment on above: Performed By: #### H STROPN, CMP, LIPA ####[facility] Lqcsbsdeqc8153 [place] [address]Dr. Tadeo Smyth Sodium [Moles/Vol] 142 mmol/L Normal 136-145 [facility] Comment on above: Performed By: #### H STROPN, CMP, LIPA ####[facility] Hcjjzufzwh7078 [place] [address]Dr. Tadeo Smyth Urea nitrogen [Mass/Vol] 17.0 mg/dL Normal 7.0-18.0 [facility] Comment on above: Performed By: #### H DIANN FIGUEROA, LIPA ####[facility] Uoimmhezik3048 [place] [address]Dr. Tadeo Haja Urea nitrogen/Creatinine [Mass ratio] 18.7 mg/mg Normal [facility] Comment on above: Performed By: #### H DIANN FIGUEROA, LIPA ####[facility] Otijojuxvm8749 [place] [address]Dr. Tadeo Smyth TROPONIN, HIGH SENSITIVITYon 09-14-2022 HSTROP 46.6 pg/mL Normal 4.0-51.3 [facility] Comment on above: Result Comment: CUT- OFF POINTS HAVE BEEN ESTABLISHED BASED ON THE FOURTH UNIVERSAL DEFINITIONS OF MYOCARDIALINFARCTION. THE UPPER REFERENCE LIMIT (URL) OF TROPONIN, DEFINED THE 99TH PERCENTILE OFcTnI DISTRIBUTION IN A REFERENCE POPULATION, HAS BEEN CONFIRMED THE DECISION THRESHOLDFOR [place] DIAGNOSIS. Performed By: #### H DIANN FIGUEROA, LIPA ####[facility] Cyodmffflx4[address] [place] [address]Dr. Tadeo Haja URINE MICROSCOPIC ONLYon BACTERIA NONE SEEN Normal NONE SEEN [facility] Comment on above: Performed By: #### SANDRO MERCHANTRO ####[facility] Wsrqbwprkb4281 [place] [address]Dr. Tadeo Smyth Bacteria identified Cx Nom (U) NOT INDICATED Normal [facility] Comment on above: Performed By: #### Matthew FRANCISCO UMICRO ####[facility] Rgsuwxpgzg9075 [place] [address]Dr. Tadeo Smyth CAST NONE SEEN Normal NONE SEEN [facility] Comment on above: Performed By: #### SANDRO MERCHANTRO ####[facility] Tebhxmdbxf0988 [place] [address]Dr. Tadeo Smyth Crystals LM Nom (Urine sed) NONE SEEN Normal NONE SEEN [facility] Comment on above: Performed By: #### SANDRO MERCHANTRO ####[facility] Vbjkhcapjw2342 [place] [address]Dr. Tadeo Smyth Epithelial cells LM Ql (Urine sed) FEW Abnormal NONE SEEN /RARE [facility] Comment on above: Performed By: #### KAROL MERCHANT ####[facility] Xpztpwrttb9497 [place] [address]Dr. Tadeo Smyth MUCOUS MODERATE Abnormal NONE SEEN [facility] Comment on above: Performed By: #### KAROL MERCHANT ####[facility] Rcyzxsgcax5324 [place] [id number]. Tadeo Smyth RBC 0-2 Normal 0-2 [facility] Comment on above: Performed By: #### KAROL MERCHANT ####[facility] Ynpruqnjan4719 [place] [address]Dr. Tadeo Smyth WBC NONE SEEN Normal NONE SEEN [facility] Comment on above: Performed By: #### KAROL MERCHANT ####[facility] Wousoewdiq3154 [place] [address]Dr. Tadeo Smyth XR ABD FLAT UP_PA Kasey 09-14 XR ABD FLAT UP_PA CH Normal [facility] VC COMP CONSULTATIONon 09-06 VC COMP CONSULTATION Normal [facility] VC VENOUS REFLUX MACARIO LMTon 0 09-06-2022 VC VENOUS REFLUX MACARIO LMT Normal [facility] XR KUB 1 VIEWon 08-18-2022 XR KUB 1 VIEW Normal [facility] US RUBENS DOP LEG RTon 08-11-20 US RUBENS DOP LEG RT Normal [facility] Provider Letteron 08-10-2022 Provider Letter (Inserted Image. Kristin ble to display) August 10, 2022 CONSTANTINO CARDOSO [address] [place] [address] CONSTANTINO CARDOSO 1970 Dear Constantino, We have been trying to reach you with no success. It is important that you return our call regarding your referral. Thank you for your prompt attention to this matter. Sincerely, [facility] Normal [facility] AMYLASEon 08-08-2022 Amylase [Catalytic activity/Vol] 64 U/L Normal 25-115 [facility] Comment on above: Performed By: #### C MP, VIJI, LIPA, CMADM ####[facility] Hoivdwlsia4132 [place] [address]Dr. Tadeo Smyth CARDIAC NORA ADMITon 022 CK [Catalytic activity/Vol] 127 U/L Normal 26-192 [facility] Comment on above: Performed By: #### C MP, VIJI, LIPA, CMADM ####[facility] Wuifkziqer2952 [place] [address]Dr. Tadeo Haja CK.MB [Mass/Vol] 1.71 ng/mL Normal <=3.60 [facility] Comment on above: Performed By: #### C MP, VIJI, LIPA, CMADM ####[facility] Xguxjebqjd6760 [place] [address]Dr. Tadeo Smyth HSTROP 36.7 pg/mL Normal 4.0-51.3 [facility] Comment on above: Result Comment: CUT- OFF POINTS HAVE BEEN ESTABLISHED BASED ON THE FOURTH UNIVERSAL DEFINITIONS OF MYOCARDIALINFARCTION. THE UPPER REFERENCE LIMIT (URL) OF TROPONIN, DEFINED THE 99TH PERCENTILE OFcTnI DISTRIBUTION IN A REFERENCE POPULATION, HAS BEEN CONFIRMED THE DECISION THRESHOLDFOR [place] DIAGNOSIS. Performed By: #### C MP, VIJI, LIPA, CMADM ####[facility] Trnnoszhto8386 [place] [address]Dr. Tadeo Haja AAKASH 23 ng/mL Normal 9-82 [facility] Comment on above: Performed By: #### C MP, VIJI, LIPA, CMADM ####[facility] Axveyvtzsx7961 [place] [address]Dr. Tadeo Haja CBC AUTO DIFFon 08-08-2022 BASO # 0.0 103/ul Normal 0.0-0.1 [facility] Comment on above: Performed By: #### C BC ####[facility] Wztutuqnxa3807 [place] [address]Dr. Margotnicole Smyth Basophils/100 WBC (Bld) 0.4 % Normal 0.2-2.0 [facility] Comment on above: Performed By: #### C BC ####[facility] Glxzginaxb2713 [place] [address]Dr. Tadeo Smyth EO # 0.1 103/ul Normal 0.0-0.7 [facility] Comment on above: Performed By: #### C BC ####[facility] Rvwpdvckmg5[address] [place], [place] [address]Dr. Tadeo Smyth Eosinophils/100 WBC (Bld) 1.5 % Normal 0.9-7.0 [facility] Comment on above: Performed By: #### C BC ####[facility] Grjksfzdkq6739[address] [place], [place] [address]Dr. Tadeo Smyth Erythrocyte distribution width (RBC) [Ratio] 13.5 % Normal 11.0-15.0 [facility] Comment on above: Performed By: #### C BC ####[facility] Fcnltygpms0713[address] [place], [place] [address]Dr. Tadeo Smyth Hematocrit (Bld) [Volume fraction] 37.0 % Normal 36.0-48.0 [facility] Comment on above: Performed By: #### C BC ####[facility] Emzfuqfley37[address] [place], [place] [address]Dr. Tadeo Smyth Hemoglobin (Bld) [Mass/Vol] 12.0 g/dL Normal 12.0-16.0 [facility] Comment on above: Performed By: #### C BC ####[facility] Etrakijvfr9[address] [place], [place] [address]Dr. Tadeo Smyth IG # 0.02 10e3/ul Normal 0.00-0.03 [facility] Comment on above: Performed By: #### C BC ####[facility] Ckzgskmgqe4639[address] [place], [place] [address]Dr. Tadeo Smyth IG % 0.3 % Normal 0.0-0.5 [facility] Comment on above: Performed By: #### C BC ####[facility] Hjfxiikteb11[address] [place], [place] [address]Dr. Margotnicole Smyth LYMPH # 2.0 103/ul Normal 1.2-3.8 [facility] Comment on above: Performed By: #### C BC ####[facility] Feayyndsex4023 [place] [phone]. Tadeo Haja Lymphocytes/100 WBC (Bld) 27.9 % Normal 20.5-60.0 [facility] Comment on above: Performed By: #### C BC ####[facility] Rjpzszdenn0340 [place] [phone]. Tadeo Haja MANUAL DIFF REQ NO Normal [facility] Comment on above: Performed By: #### C BC ####[facility] Xzruvrctfq5954 [place] [address]Dr. Tadeo Haja MCH (RBC) [Entitic mass] 28.9 pg Normal 26.7-34.0 [facility] Comment on above: Performed By: #### C BC ####[facility] Hsgknnqomr9583 [place] [address]Dr. Tadeo Haja MCHC (RBC) [Mass/Vol] 32.4 g/dL Normal 29.9-35.2 [facility] Comment on above: Performed By: #### C BC ####[facility] Jvkwxfwuws1898 [place] [address]Dr. Margotnicole Smyth MCV (RBC) [Entitic vol] 89.2 fL Normal 81.0-99.0 [facility] Comment on above: Performed By: #### C BC ####[facility] Eijzmiigbl64[address] [place], [place] [address]Dr. Tadeo Smyth MONO # 0.5 103/ul Normal 0.3-0.8 [facility] Comment on above: Performed By: #### C BC ####[facility] Hqoovkzpzf0319 [place] [address]Dr. Margotnicole Smyth Monocytes/100 WBC (Bld) 6.7 % Normal 1.7-12.0 [facility] Comment on above: Performed By: #### C BC ####[facility] Xmkfocarrt0423[address] [place], [place] [address]Dr. Tadeo Smyth NEUT # 4.5 103/ul Normal 1.4-6.5 [facility] Comment on above: Performed By: #### C BC ####[facility] Vbncbjpfyv4432 [place] [address]Dr. Tadeo Smyth Neutrophils/100 WBC (Bld) 63.2 % Normal 43.0-75.0 [facility] Comment on above: Performed By: #### C BC ####[facility] Dpfkgbbpml9074 [place] [address]Dr. Tadeo Smyth Platelet mean volume (Bld) [Entitic vol] 9.0 fL Critically low 9.5-13.5 [facility] Comment on above: Performed By: #### C BC ####[facility] Wxtsdkspnt8[address] [place], [place] [address]Dr. Tadeo Smyth PLT 382 103/ul Normal 150-450 [facility] Comment on above: Performed By: #### C BC ####[facility] Ldubhjkqtu776[address] [place], [place] [address]Dr. Tadeo Smyth RBC 4.15 106/ul Critically low 4.20-5.40 [facility] Comment on above: Performed By: #### C BC ####[facility] Hmashndbbi68[address] [place], [place] [address]Dr. Tadeo Smyth WBC 7.1 103/ul Normal 4.0-11.0 [facility] Comment on above: Performed By: #### C BC ####[facility] Ldwqmgnsvu535[address] [place], [place] [address]Dr. Tadeo Smyth CT ABD/PELV W CONon 08-08-[address] ABD/PELV W CON Normal [facility] ER URINE PROFILEon 2 Bilirubin Ql (U) Negative Normal NEGATIVE [facility] Comment on above: Performed By: #### SANDRO MERCHANTRO ####[facility] Jrujnjrqkr7784[address] [place], [place] [address]Dr. Margotnicole Smyth Clarity (U) CLEAR Normal CLEAR [facility] Comment on above: Performed By: #### SANDRO MERCHANTRO ####[facility] Gedhgjyqwd12[address] [place], [place] [address]Dr. Margotnicole Smyth Color (U) YELLOW Normal YELLOW [facility] Comment on above: Performed By: #### SANDRO MERCHANTRO ####[facility] Fzvnkriyan6062 [place] [address]Dr. Tadeo CAMARGOD A micrscopic examina tion will be performed if indicated. Normal [facility] Comment on above: Performed By: #### KAROL MERCHANT ####[facility] Xpbxnnpxzq8852 [place] [address]Dr. Tadeo Smyth Glucose Ql (U) Negative Normal NEGATIVE [facility] Comment on above: Performed By: #### KAROL MERCHANT ####[facility] Yuqvgasklt5237[address] [place], [place] [address]Dr. Tadeo Smyth Hemoglobin Ql (U) TRACE-LYSED Abnormal NEGATIVE [facility] Comment on above: Performed By: #### KAROL MERCHANT ####[facility] Ijkbypgfgm1900 [place] [address]Dr. Tadeo Smyth Ketones Ql (U) TRACE Abnormal NEGATIVE [facility] Comment on above: Performed By: #### KAROL MERCHANT ####[facility] Obfcqnniey15[address] [place], [place] [address]Dr. Tadeo Smyth LEUKOCYTES Negative Normal NEGATIVE [facility] Comment on above: Performed By: #### KAROL MERCHANT ####[facility] Puijqqzpxe7[address] [place], [place] [address]Dr. Tadeo Smyth Nitrite Ql (U) Negative Normal NEGATIVE [facility] Comment on above: Performed By: #### KAROL MERCHANT ####[facility] Bdoqjegeku788[address] [place], [place] [address]Dr. Tadeo Smyth pH (U) 6.0 [pH] Normal 5-9 [facility] Comment on above: Performed By: #### KAROL MERCHANT ####[facility] Skicomzxru94[address] [place], [place] [address]Dr. Tadeo Smyth SPEC GRAVITY >=1.030 Abnormal 1.005-<=1.0 25 [facility] Comment on above: Performed By: #### KAROL MERCHANT ####[facility] Vhonjskjfi[address] [place], [place] [address]Dr. Tadeo Smyth UA PROTEIN TRACE Normal NEGATIVE/ TRACE [facility] Comment on above: Performed By: #### KAROL MERCHANT ####[facility] Npcrifjfzu6178 [place] [address]Dr. Tadeo Smyth UR MICRO IND INDICATED Normal [facility] Comment on above: Performed By: #### SANDRO MERCHANTRO ####[facility] Bqgewxcfkv4128 [place] [address]Dr. Tadeo Smyth Urobilinogen Qn (U) 0.2 {Benito'U}/dL Normal 0.2 - 1. 0 [facility] Comment on above: Performed By: #### KAROL MERCHANT ####[facility] Copirrzlqw49[address] [place], [place] [address]Dr. Tadeo Smyth LACTATE/LACTIC ACIDon 2021 Lactate [Moles/Vol] 1.3 mmol/L Normal 0.4-1.9 [facility] Comment on above: Performed By: #### L ACT ####[facility] Dqdspdzxfb[address] [place], [place] [address]Dr. Tadeo Smyth LIPASEon 08-08-2022 Lipase [Catalytic activity/Vol] 120.0 U/L Normal 73.0-393.0 [facility] Comment on above: Performed By: #### C MP, VIJI, LIPA, CMADM ####[facility] Xqixwhxlfl[address] [place], [place] [address]Dr. Tadeo Smyth PROF 14(COMP METB)on 022 Albumin [Mass/Vol] 3.8 g/dL Normal 3.4-5.0 [facility] Comment on above: Performed By: #### C MP, VIJI, LIPA, CMADM ####[facility] Akrcjbroih4[address] [place], [place] [address]Dr. Tadeo Smyth Albumin/Globulin [Mass ratio] 1.1 {ratio} Normal [facility] Comment on above: Performed By: #### C MP, VIJI, LIPA, CMADM ####[facility] Duqcndxlwl[address] [place] [address]Dr. Tadeo Smyth ALP [Catalytic activity/Vol] 145 U/L Critically high 46-116 [facility] Comment on above: Performed By: #### C MP, VIJI, LIPA, CMADM ####[facility] Ognhjprvez[address] [place] [address]Dr. Tadeo Smyth ALT [Catalytic activity/Vol] 30 U/L Normal 14-59 [facility] Comment on above: Performed By: #### C MP, VIJI, LIPA, CMADM ####[facility] Nnpxfqrndq35[address] [place] [address]Dr. Tadeo Smyth Anion gap [Moles/Vol] 11.5 mmol/L Normal [facility] Comment on above: Performed By: #### C MP, VIJI, LIPA, CMADM ####[facility] Ihoolwvdnc0194 [place] [address]Dr. Tadeo Smyth AST [Catalytic activity/Vol] 17 U/L Normal 15-37 [facility] Comment on above: Performed By: #### C MP, VIJI, LIPA, CMADM ####[facility] Llsplomdvw6227 [place] [address]Dr. Tadeo Smyth Bilirubin [Mass/Vol] 0.1 mg/dL Critically low 0.2-1.0 [facility] Comment on above: Performed By: #### C MP, VIJI, LIPA, CMADM ####[facility] Igifxwfzvk4965 [place] [address]Dr. Tadeo Smyth Calcium [Mass/Vol] 8.9 mg/dL Normal 8.5-10.1 [facility] Comment on above: Performed By: #### C MP, VIJI, LIPA, CMADM ####[facility] Nbewhugsff[address] [place] [address]Dr. Tadeo Smyth Chloride [Moles/Vol] 104 mmol/L Normal 98-107 [facility] Comment on above: Performed By: #### C MP, VIJI, LIPA, CMADM ####[facility] Cpjfdoochh24[address] [place] [address]Dr. Tadeo Smyth CO2 [Moles/Vol] 27.2 mmol/L Normal 21.0-32.0 [facility] Comment on above: Performed By: #### C MP, VIJI, LIPA, CMADM ####[facility] Exwsbpzrye96[address] [place] [address]Dr. Tadeo Smyth Creatinine [Mass/Vol] 0.90 mg/dL Normal 0.55-1.02 [facility] Comment on above: Performed By: #### C MP, VIJI, LIPA, CMADM ####[facility] Qucgjrkvaf8549 [place] [address]Dr. Tadeo Smyth EGFR-AF SWISS >60 Normal >=60 [facility] Comment on above: Performed By: #### C MP, VIJI, LIPA, CMADM ####[facility] Ylysgmevex6583 [place] [address]Dr. Tadeo Smyth EGFR-NON AF SWISS >60 Normal >=60 [facility] Comment on above: Performed By: #### C MP, VIJI, LIPA, CMADM ####[facility] Equuwnzezi20[address] [place], [place] [address]Dr. Tadeo Smyth Globulin (S) [Mass/Vol] 3.5 g/dL Normal [facility] Comment on above: Performed By: #### C MP, VIJI, LIPA, CMADM ####[facility] Qwwxngohcy1797 [place] [address]Dr. Tadeo Smyth Glucose [Mass/Vol] 98 mg/dL Normal 74-106 [facility] Comment on above: Performed By: #### C MP, VIJI, LIPA, CMADM ####[facility] Epdztmevxu3185 [place] [address]Dr. Tadeo Smyth Potassium [Moles/Vol] 3.7 mmol/L Normal 3.5-5.1 [facility] Comment on above: Performed By: #### C MP, VIJI, LIPA, CMADM ####[facility] Otjkbgqxyz6115 [place] [address]Dr. Tadeo Smyth Protein [Mass/Vol] 7.3 g/dL Normal 6.4-8.2 [facility] Comment on above: Performed By: #### C MP, VIJI, LIPA, CMADM ####[facility] Dfygirsimf7578 [place] [address]Dr. Tadeo Smyth Sodium [Moles/Vol] 139 mmol/L Normal 136-145 [facility] Comment on above: Performed By: #### C MP, VIJI, LIPA, CMADM ####[facility] Lsqrfjdtnp0318 [place] [address]Dr. Tadeo Smyth Urea nitrogen [Mass/Vol] 25.0 mg/dL Critically high 7.0-18.0 [facility] Comment on above: Performed By: #### C MP, VIJI, LIPA, CMADM ####[facility] Yodwskcfpf7629 [place] [address]Dr. Tadeo Smyth Urea nitrogen/Creatinine [Mass ratio] 27.8 mg/mg Normal [facility] Comment on above: Performed By: #### C MP, VIJI, LIPA, CMADM ####[facility] Ckakdrhale5[address] [place] [address]Dr. Tadeo Smyth URINE MICROSCOPIC ONLYon BACTERIA NONE SEEN Normal NONE SEEN [facility] Comment on above: Performed By: #### SANDRO MERCHANTRO ####[facility] [address]zxdrxhtfz[address] [place], [place] [address]Dr. Tadeo Smyth Bacteria identified Cx Nom (U) NOT INDICATED Normal [facility] Comment on above: Performed By: #### Matthew FRANCISCO UMICRO ####[facility] Rinzxalacb8476 [place] [address]Dr. Tadeo Smyth CAST NONE SEEN Normal NONE SEEN [facility] Comment on above: Performed By: #### Matthew FRANCISCO UMICRO ####[facility] Sdqjtytfhj3559 [place] [address]Dr. Tadeo Smyth Crystals LM Nom (Urine sed) NONE SEEN Normal NONE SEEN [facility] Comment on above: Performed By: #### Matthew FRANCISCO UMICRO ####[facility] Uzqzpqlshp3698 [place] [address]Dr. Tadeo Smyth Epithelial cells LM Ql (Urine sed) FEW Abnormal NONE SEEN /RARE [facility] Comment on above: Performed By: #### E NOLAN UMICRO ####[facility] Zdeylkrbyq5590 [place], [place] [address]Ox. Tadeo Smyth MUCOUS NONE SEEN Normal NONE SEEN [facility] Comment on above: Performed By: #### Matthew FRANCISCO UMICRO ####[facility] Fivedlcrcv3222 [place], [place] [address]Dm. Tadeo Smyth RBC 2-5 Abnormal 0-2 [facility] Comment on above: Performed By: #### Matthew FRANCISCO UMICRO ####[facility] Fguvauswex5158 [place], [place] [address]Am. Tadeo Smyth WBC NONE SEEN Normal NONE SEEN [facility] Comment on above: Performed By: #### SANDRO MERCHANTRO ####[facility] Nlgqgffzqp4914 [place], [place] [address]Qj. Tadeo Smyth Gastroenterology Office/Clin ic Noteon 07-24-2022 [...] Nunez to record this visit. JOSE FRANCISCO lab specialist and provider reviewed before signing. JOSE [...] (more content not included)... Normal [facility] Comment on above: Result Comment: Elec tronically Signed By: Agata Nunes\.br\Date and Time Signed: 07/22/22 16:25 EST\.br\Electronically Co-Signed By: Anai REAGAN MD\.br\Date and Time Co-Signed: 07/24/22 15:06 EST AMYLASEon 07-21-2022 Amylase [Catalytic activity/Vol] 49 U/L Normal 25-115 [facility] Comment on above: Performed By: #### L ISABEL, VIJI, CMP ####[facility] Vwnkivpefj1048 [place] [address]Dr. Tadeo Haja CBC AUTO DIFFon 07-21-2022 BASO # 0.0 103/ul Normal 0.0-0.1 [facility] Comment on above: Performed By: #### C BC ####[facility] Bppxnlnkzx[address] [place], [place] [address]Dr. Tadeo Smyth Basophils/100 WBC (Bld) 0.6 % Normal 0.2-2.0 [facility] Comment on above: Performed By: #### C BC ####[facility] Lbdqepydan85[address] [place], [place] [address]Dr. Tadeo Smyth EO # 0.2 103/ul Normal 0.0-0.7 [facility] Comment on above: Performed By: #### C BC ####[facility] Gkdbmjnrar1060[address] [place], [place] [address]Dr. Tadeo Smyth Eosinophils/100 WBC (Bld) 3.1 % Normal 0.9-7.0 [facility] Comment on above: Performed By: #### C BC ####[facility] Ippezxfofl[address] [place], [place] [address]Dr. Tadeo Smyth Erythrocyte distribution width (RBC) [Ratio] 13.2 % Normal 11.0-15.0 [facility] Comment on above: Performed By: #### C BC ####[facility] Uvfnawmsly16[address] [place], [place] [address]Dr. Tadeo Smyth Hematocrit (Bld) [Volume fraction] 35.7 % Critically low 36.0-48.0 [facility] Comment on above: Performed By: #### C BC ####[facility] Cjynccmfxq17[address] [place], [place] [address]Dr. Tadeo Smyth Hemoglobin (Bld) [Mass/Vol] 11.6 g/dL Critically low 12.0-16.0 [facility] Comment on above: Performed By: #### C BC ####[facility] Mylfzcbtmr0384 [place] [id number]. Tadeo Smyth IG # 0.01 10e3/ul Normal 0.00-0.03 [facility] Comment on above: Performed By: #### C BC ####[facility] Egxgbzrpbx1488 [place] [id number]. Tadeo Smyth IG % 0.2 % Normal 0.0-0.5 [facility] Comment on above: Performed By: #### C BC ####[facility] Tufgxvgeqi3049 [place] [address]Dr. Tadeo Smyth LYMPH # 1.9 103/ul Normal 1.2-3.8 [facility] Comment on above: Performed By: #### C BC ####[facility] Qfrlnruvuo8628 [place] [address]Dr. Margotnicole Smyth Lymphocytes/100 WBC (Bld) 34.8 % Normal 20.5-60.0 [facility] Comment on above: Performed By: #### C BC ####[facility] Auximaodqa2756 [place] [address]Dr. Tadeo Smyth MANUAL DIFF REQ NO Normal [facility] Comment on above: Performed By: #### C BC ####[facility] Yfwcujpvbw[address] [place], [place] [address]Dr. Tadeo Smyth MCH (RBC) [Entitic mass] 29.1 pg Normal 26.7-34.0 [facility] Comment on above: Performed By: #### C BC ####[facility] Fdauahrswl[address] [place], [place] [address]Dr. Tadeo Smyth MCHC (RBC) [Mass/Vol] 32.5 g/dL Normal 29.9-35.2 [facility] Comment on above: Performed By: #### C BC ####[facility] Gncsdkdxvr[address] [place], [place] [address]Dr. Tadeo Smyth MCV (RBC) [Entitic vol] 89.7 fL Normal 81.0-99.0 [facility] Comment on above: Performed By: #### C BC ####[facility] Hnmiejjgbk8588 [place] [id number]. Tadeo Smyth MONO # 0.3 103/ul Normal 0.3-0.8 [facility] Comment on above: Performed By: #### C BC ####[facility] Qmsczijoke0624 [place] [phone]. Tadeo Smyth Monocytes/100 WBC (Bld) 6.1 % Normal 1.7-12.0 [facility] Comment on above: Performed By: #### C BC ####[facility] Pvutebsulx9583 [place] [id number]. Tadeo Smyth NEUT # 3.0 103/ul Normal 1.4-6.5 [facility] Comment on above: Performed By: #### C BC ####[facility] Hpsnwpbfdt364[address] [place], [place] [address]Dr. Tadeo Smyth Neutrophils/100 WBC (Bld) 55.2 % Normal 43.0-75.0 [facility] Comment on above: Performed By: #### C BC ####[facility] Eiesuebfev2054 [place] [address]Dr. Tadeo Smyth Platelet mean volume (Bld) [Entitic vol] 9.0 fL Critically low 9.5-13.5 [facility] Comment on above: Performed By: #### C BC ####[facility] Qibejjhkdz8233 [place] [id number]. Tadeo Smyth PLT 358 103/ul Normal 150-450 [facility] Comment on above: Performed By: #### C BC ####[facility] Agzxisurtq7[address] [place], [place] [address]Dr. Tadeo Smyth RBC 3.98 106/ul Critically low 4.20-5.40 [facility] Comment on above: Performed By: #### C BC ####[facility] Cwamluvkly3192 [place] [address]Dr. Tadeo Smyth WBC 5.4 103/ul Normal 4.0-11.0 [facility] Comment on above: Performed By: #### C BC ####[facility] Mnvbmqkodf6136 [place] [address]Dr. Tadeo Smyth LIPASEon 07-21-2022 Lipase [Catalytic activity/Vol] 54.0 U/L Critically low 73.0-393.0 [facility] Comment on above: Performed By: #### L VIJI HALL, CMP ####[facility] Pihjmziqdn7605 [place] [address]Dr. Tadeo Smyth PROF 14(COMP METB)on 022 Albumin [Mass/Vol] 3.5 g/dL Normal 3.4-5.0 [facility] Comment on above: Performed By: #### L ISABEL VIJI, CMP ####[facility] Ifjiqjarib00[address] [place], [place] [address]Dr. Tadeo Smyth Albumin/Globulin [Mass ratio] 0.9 {ratio} Normal [facility] Comment on above: Performed By: #### L VIJI HALL, CMP ####[facility] Ctgcemuigi54[address] [place], [place] [address]Dr. Tadeo Smyth ALP [Catalytic activity/Vol] 127 U/L Critically high 46-116 [facility] Comment on above: Performed By: #### L VIJI HALL, CMP ####[facility] Ouakwhhehx84[address] [place], [place] [address]Dr. Tadeo Smyth ALT [Catalytic activity/Vol] 16 U/L Normal 14-59 [facility] Comment on above: Performed By: #### L ISABEL VIJI, CMP ####[facility] Tnpyzrdlwa468[address] [place], [place] [address]Dr. Tadeo Smyth Anion gap [Moles/Vol] 10.6 mmol/L Normal [facility] Comment on above: Performed By: #### L ISABEL VIJI, CMP ####[facility] Czixongogy10[address] [place], [place] [address]Dr. Tadeo Smyth AST [Catalytic activity/Vol] 16 U/L Normal 15-37 [facility] Comment on above: Performed By: #### L IPA VIJI, CMP ####[facility] Nwaikwloev47[address] [place], [place] [address]Dr. Tadeo Smyth Bilirubin [Mass/Vol] 0.3 mg/dL Normal 0.2-1.0 [facility] Comment on above: Performed By: #### L VIJI HALL, CMP ####[facility] Lyttxrnerl56[address] [place], [place] [address]Dr. Tadeo Smyth Calcium [Mass/Vol] 9.1 mg/dL Normal 8.5-10.1 [facility] Comment on above: Performed By: #### L VIJI HALL, CMP ####[facility] Lwvzrfifer3416[address] [place], [place] [address]Dr. Tadeo Smyth Chloride [Moles/Vol] 104 mmol/L Normal 98-107 [facility] Comment on above: Performed By: #### L VIJI HALL, CMP ####[facility] Deoezquwxs[address] [place], [place] [address]Dr. Tadeo Smyth CO2 [Moles/Vol] 28.0 mmol/L Normal 21.0-32.0 [facility] Comment on above: Performed By: #### L VIJI HALL, CMP ####[facility] Obkokdpvcn9[address] [place], [place] [address]Dr. Tadeo Smyth Creatinine [Mass/Vol] 0.96 mg/dL Normal 0.55-1.02 [facility] Comment on above: Performed By: #### L VIJI HALL, CMP ####[facility] Gzezmfhfmj[address] [place], [place] [address]Dr. Tadeo Smyth EGFR-AF SWISS >60 Normal >=60 [facility] Comment on above: Performed By: #### L VIJI HALL, CMP ####[facility] Blfyyrmhgx85[address] [place], [place] [address]Dr. Tadeo Smyth EGFR-NON AF SWISS >60 Normal >=60 [facility] Comment on above: Performed By: #### L VIJI HALL, CMP ####[facility] Fwkfqwesgh[address] [place], [place] [address]Dr. Tadeo Smyth Globulin (S) [Mass/Vol] 3.8 g/dL Normal [facility] Comment on above: Performed By: #### L VIJI HALL, CMP ####[facility] Dvbyegantb40[address] [place], [place] [address]Dr. Tadeo Smyth Glucose [Mass/Vol] 93 mg/dL Normal 74-106 [facility] Comment on above: Performed By: #### L VIJI HALL, CMP ####[facility] Qvdcxxlbox8764 [place] [address]Dr. Tadeo Smyth Potassium [Moles/Vol] 3.6 mmol/L Normal 3.5-5.1 [facility] Comment on above: Performed By: #### L VIJI HALL, CMP ####[facility] Pwvbyhsoor1210 [place] [address]Dr. Tadeo Smyth Protein [Mass/Vol] 7.3 g/dL Normal 6.4-8.2 [facility] Comment on above: Performed By: #### L VIJI HALL, CMP ####[facility] Sfifzkkthu7992 [place] [address]Dr. Tadeo Smyth Sodium [Moles/Vol] 139 mmol/L Normal 136-145 [facility] Comment on above: Performed By: #### L VIJI HALL, CMP ####[facility] Phhtqnikwo2622 [place] [address]Dr. Tadeo Smyth Urea nitrogen [Mass/Vol] 16.0 mg/dL Normal 7.0-18.0 [facility] Comment on above: Performed By: #### L VIJI HALL, CMP ####[facility] Gmnznabvfy9367 [place] [address]Dr. Tadeo Smyth Urea nitrogen/Creatinine [Mass ratio] 16.7 mg/mg Normal [facility] Comment on above: Performed By: #### L VIJI HALL, CMP ####[facility] Pbujgizdhj8797 [place] [address]Dr. Tadeo Smyth XR ABD FLAT UP_PA Kasey 07-21 XR ABD FLAT UP_PA CH Normal [facility] CULTURE URINEon 07-10-2022 CULTURE URINE Normal [facility] Comment on above: Performed By: #### U RCX ####[facility] Auiafgfxss7971 [place] [address]Dr. Margotnicole Smyth INSULINon 11-04-2022 Insulin 15.9 uIU/mL Normal 2.6-24.9 [facility] Comment on above: Performed By: #### I NSULIN ####[facility] Ojvodoixod9247 [place] [address]Dr. Tadeo Smyth CBC AUTO DIFFon 07-08-2022 BASO # 0.0 103/ul Normal 0.0-0.1 [facility] Comment on above: Performed By: #### C BC ####[facility] Gsjbfadtmz06[address] [place], [place] [address]Dr. Margotnicole Smyth Basophils/100 WBC (Bld) 0.6 % Normal 0.2-2.0 [facility] Comment on above: Performed By: #### C BC ####[facility] Qarxzttzmx35[address] [place], [place] [address]Dr. Tadeo Smyth EO # 0.2 103/ul Normal 0.0-0.7 [facility] Comment on above: Performed By: #### C BC ####[facility] Snyliailht9[address] [place], [place] [address]Dr. Tadeo Haja Eosinophils/100 WBC (Bld) 3.4 % Normal 0.9-7.0 [facility] Comment on above: Performed By: #### C BC ####[facility] Mhfinfpoil9[address] [place], [place] [address]Dr. Tadeo Smyth Erythrocyte distribution width (RBC) [Ratio] 13.1 % Normal 11.0-15.0 [facility] Comment on above: Performed By: #### C BC ####[facility] Fnniboudya8407[address] [place], [place] [address]Dr. Tadeo Smyth Hematocrit (Bld) [Volume fraction] 42.4 % Normal 36.0-48.0 [facility] Comment on above: Performed By: #### C BC ####[facility] Uklztmfzka932[address] [place], [place] [address]Dr. Tadeo Smyth Hemoglobin (Bld) [Mass/Vol] 13.7 g/dL Normal 12.0-16.0 [facility] Comment on above: Performed By: #### C BC ####[facility] Mlmlmcontk9641 [place] [address]Dr. Margotnicole Smyth IG # 0.01 10e3/ul Normal 0.00-0.03 [facility] Comment on above: Performed By: #### C BC ####[facility] Ikxguimvcj5[address] [place], [place] [address]DrNeo Smyth IG % 0.2 % Normal 0.0-0.5 [facility] Comment on above: Performed By: #### C BC ####[facility] Fkevcbkjvv9[address] [place], [place] [address]DrNeo Smyth LYMPH # 2.1 103/ul Normal 1.2-3.8 [facility] Comment on above: Performed By: #### C BC ####[facility] Hrbwtrckuy10[address] [place], [place] [address]DrNeo Smyth Lymphocytes/100 WBC (Bld) 41.2 % Normal 20.5-60.0 [facility] Comment on above: Performed By: #### C BC ####[facility] Epcpsyrmjc65[address] [place], [place] [address]DrNeo Margotnicole Smyth MANUAL DIFF REQ NO Normal [facility] Comment on above: Performed By: #### C BC ####[facility] Zkpaqzvkkg094[address] [place], [place] [address]DrNeo Margotnicole Smyth MCH (RBC) [Entitic mass] 28.8 pg Normal 26.7-34.0 [facility] Comment on above: Performed By: #### C BC ####[facility] Umakdncucn16[address] [place], [place] [address]DrNeo Margotnicole Smyth MCHC (RBC) [Mass/Vol] 32.3 g/dL Normal 29.9-35.2 [facility] Comment on above: Performed By: #### C BC ####[facility] Xkbtyjxnge234[address] [place], [place] [address]DrNeo Smyth MCV (RBC) [Entitic vol] 89.3 fL Normal 81.0-99.0 [facility] Comment on above: Performed By: #### C BC ####[facility] Xddgwqouwe[address] [place], [place] [address]DrNeo Smyth MONO # 0.4 103/ul Normal 0.3-0.8 [facility] Comment on above: Performed By: #### C BC ####[facility] Tgylvlhjud0487 [place] [id number]. Tadeo Smyth Monocytes/100 WBC (Bld) 8.1 % Normal 1.7-12.0 [facility] Comment on above: Performed By: #### C BC ####[facility] Lyqemlprse8890 [place] [address]Dr. Tadeo Smyth NEUT # 2.4 103/ul Normal 1.4-6.5 [facility] Comment on above: Performed By: #### C BC ####[facility] Xewzirqesv6252 [place] [address]Dr. Tadeo Smyth Neutrophils/100 WBC (Bld) 46.5 % Normal 43.0-75.0 [facility] Comment on above: Performed By: #### C BC ####[facility] Tgfskevuny1194 [place] [address]Dr. Tadeo Smyth Platelet mean volume (Bld) [Entitic vol] 9.3 fL Critically low 9.5-13.5 [facility] Comment on above: Performed By: #### C BC ####[facility] Cjrclfgqzw0405 [place] [address]Dr. Tadeo Smyth PLT 443 103/ul Normal 150-450 [facility] Comment on above: Performed By: #### C BC ####[facility] Wfpnbdzugd1503 [place] [id number]. Tadeo Smyth RBC 4.75 106/ul Normal 4.20-5.40 [facility] Comment on above: Performed By: #### C BC ####[facility] Jkzzerqxuw0906 [place] [id number]. Tadeo Smyth WBC 5.1 103/ul Normal 4.0-11.0 [facility] Comment on above: Performed By: #### C BC ####[facility] Luxshocluw[address] [place], [place] [address]Dr. Tadeo Smyth FREE THYROXINE INDEX T7on FTI 2.91 Normal 1.30-4.50 [facility] Comment on above: Performed By: #### T 7, LIPID, TSH, CMP ####[facility] Dezdcbnrdy1133 [place] [address]Dr. Tadeo Smyth T3U 31.0 % Normal 30.0-39.0 [facility] Comment on above: Performed By: #### T 7, LIPID, TSH, CMP ####[facility] Veohqdbsmc9382 [place] [address]Dr. Tadeo Smyth T4 [Mass/Vol] 9.40 ug/dL Normal 4.80-13.90 [facility] Comment on above: Performed By: #### T 7, LIPID, TSH, CMP ####[facility] Ohwcmzleqg3408 [place] [address]Dr. Tadeo Smyth GLYCOHEMOGLOBIN A1Con 2021 ADA RECOMMENDATION SEE BELOW Normal [facility] Comment on above: Result Comment: ADA RECOMMENDED LIMIT 4.0 - 6.0 ADA THERAPEUTIC TARGET < 7.0 ACTION SUGGESTED > 7.0 Performed By: #### A 1C ####[facility] Yksuocuiie[address] [place], [place] [address]Dr. Tadeo Smyth Glucose [Mass/Vol] 120 mg/dL Normal [facility] Comment on above: Performed By: #### A 1C ####[facility] Arsldltiyd9895 [place] [address]Dr. Tadeo Smyth HbA1c (Bld) [Mass fraction] 5.8 % Normal 4.5-6.2 [facility] Comment on above: Performed By: #### A 1C ####[facility] Hfjvrfklkl8498 [place] [address]Dr. Tadeo Smyth IRONon 07-08-2022 Iron [Mass/Vol] 59.0 ug/dL Normal 50.0-170.0 [facility] Comment on above: Performed By: #### I KEEGAN ####[facility] Ubdzviptqj3370 [place] [address]Dr. Tadeo Smyth LIPID PROFILEon 07-08-2022 CHOL-HDL RATIO NORM SEE BELOW Normal [facility] Comment on above: Result Comment: 3.3 - 4.4 LOW RISK 4.4 - 7.1 AVERAGE RISK 7.1 - 11.0 MODERATE RISK >11.0 HIGH RISK Performed By: #### T 7, LIPID, TSH, CMP ####[facility] Bjqgjkzdxy6859 [place], [place] [address]Tf. Tadeo Smyth Cholesterol [Mass/Vol] 227 mg/dL Critically high <=200 [facility] Comment on above: Performed By: #### T 7, LIPID, TSH, CMP ####[facility] [id number] [place] [id number]. Margotlan Smyth Cholesterol in HDL [Mass/Vol] 67 mg/dL Critically high 40-60 [facility] Comment on above: Performed By: #### T 7, LIPID, TSH, CMP ####[facility] [id number] [place] [id number]. Tadeo Smyth Cholesterol in LDL [Mass/Vol] 139.0 mg/dL Normal [facility] Comment on above: Performed By: #### T 7, LIPID, TSH, CMP ####[facility] [id number] [place] [id number]. Tadeo Smyth Cholesterol.total/Cho lesterol in HDL [Mass ratio] 3.4 {ratio} Normal [facility] Comment on above: Performed By: #### T 7, LIPID, TSH, CMP ####[facility] Zovtzrljuw8[address] [place] [phone]. Margotlan Smyth HDL NORMAL > or = 60 mg/dl - LO W CARDIOVASCULAR RISK <40 mg/dl - HIGH CARDIOVASCULAR RISK Normal [facility] Comment on above: Performed By: #### T 7, LIPID, TSH, CMP ####[facility] Gliisvhbiy59[address] [place] [phone]. Margotlan Smyth LDL CALC NORMAL SEE BELOW Normal [facility] Comment on above: Result Comment: <100 mg/dl OPTIMAL 100 - 129 mg/dl NEAR OR ABOVE OPTIMAL 130 - 159 mg/dl BORDERLINE HIGH 160 - 189 mg/dl HIGH >190 mg/dl VERY HIGH Performed By: #### T 7, LIPID, TSH, CMP ####[facility] Qqaqzfszbo8715 [place] [phone]. Tadeo Smyth Triglyceride [Mass/Vol] 105 mg/dL Normal <=150 [facility] Comment on above: Performed By: #### T 7, LIPID, TSH, CMP ####[facility] Tuymasgzuy23[address] [place] [phone]. Tadeo Smyth VLDL CALC 21.0 mg/dL Normal [facility] Comment on above: Performed By: #### T 7, LIPID, TSH, CMP ####[facility] Nqlfumdula3175 [place] [phone]. Tadeo Smyth OCC BLD IMMUNO SCREENon OCCULT BLOOD Negative Normal NEGATIVE [facility] Comment on above: Performed By: #### O BSCRN ####[facility] Fqhhkmmduz[address] [place] [address]Dr. Tadeo Smyth PROF 14(COMP METB)on 022 Albumin [Mass/Vol] 3.7 g/dL Normal 3.4-5.0 [facility] Comment on above: Performed By: #### T 7, LIPID, TSH, CMP ####[facility] Rrouaatpey14[address] [place] [address]Dr. Tadoe Smyth Albumin/Globulin [Mass ratio] 0.8 {ratio} Normal [facility] Comment on above: Performed By: #### T 7, LIPID, TSH, CMP ####[facility] Cmuauigild[address] [place] [address]Dr. Tadeo Smyth ALP [Catalytic activity/Vol] 141 U/L Critically high 46-116 [facility] Comment on above: Performed By: #### T 7, LIPID, TSH, CMP ####[facility] Nskqrbmzxd2918 [place] [phone]. Tadeo Smyth ALT [Catalytic activity/Vol] 23 U/L Normal 14-59 [facility] Comment on above: Performed By: #### T 7, LIPID, TSH, CMP ####[facility] Jgdcbradgh5986 [place] [phone]. Tadeo Smyth Anion gap [Moles/Vol] 9.8 mmol/L Normal [facility] Comment on above: Performed By: #### T 7, LIPID, TSH, CMP ####[facility] Gcvzrbtxed8398 [place] [address]Dr. Tadeo Smyth AST [Catalytic activity/Vol] 13 U/L Critically low 15-37 [facility] Comment on above: Performed By: #### T 7, LIPID, TSH, CMP ####[facility] Jxzyhtswnp[address] [place], [place] [address]Dr. Tadeo Smyth Bilirubin [Mass/Vol] 0.4 mg/dL Normal 0.2-1.0 [facility] Comment on above: Performed By: #### T 7, LIPID, TSH, CMP ####[facility] Qpvcsfhvse[address] [place], [place] [address]Dr. Tadeo Smyth Calcium [Mass/Vol] 10.2 mg/dL Critically high 8.5-10.1 [facility] Comment on above: Performed By: #### T 7, LIPID, TSH, CMP ####[facility] Srjsbionep[address] [place], [place] [address]Dr. Tadeo Smyth Chloride [Moles/Vol] 101 mmol/L Normal 98-107 [facility] Comment on above: Performed By: #### T 7, LIPID, TSH, CMP ####[facility] Kpmjtonbha[address] [place], [place] [address]Dr. Tadeo Smyth CO2 [Moles/Vol] 32.8 mmol/L Critically high 21.0-32.0 [facility] Comment on above: Performed By: #### T 7, LIPID, TSH, CMP ####[facility] Vtcouzubvz[address] [place], [place] [address]Dr. Tadeo Smyth Creatinine [Mass/Vol] 0.92 mg/dL Normal 0.55-1.02 [facility] Comment on above: Performed By: #### T 7, LIPID, TSH, CMP ####[facility] Jsqoaxtjkr69[address] [place], [place] [address]Dr. Tadeo Smyth EGFR-AF SWISS >60 Normal >=60 [facility] Comment on above: Performed By: #### T 7, LIPID, TSH, CMP ####[facility] Jbzypzkctn2173 [place] [phone]. Tadeo Smyth EGFR-NON AF SWISS >60 Normal >=60 [facility] Comment on above: Performed By: #### T 7, LIPID, TSH, CMP ####[facility] Exxagrmvlf6426 [place] [address]Dr. Tadeo Smyth Globulin (S) [Mass/Vol] 4.8 g/dL Normal [facility] Comment on above: Performed By: #### T 7, LIPID, TSH, CMP ####[facility] Rndlcgznqm1465 [place] [address]Dr. Tadeo Smyth Glucose [Mass/Vol] 114 mg/dL Critically high 74-106 [facility] Comment on above: Performed By: #### T 7, LIPID, TSH, CMP ####[facility] Mbmhpkqygh2034 [place] [address]Dr. Tadeo Smyth Potassium [Moles/Vol] 3.6 mmol/L Normal 3.5-5.1 [facility] Comment on above: Performed By: #### T 7, LIPID, TSH, CMP ####[facility] Bjdckdlmja8515 [place] [address]Dr. Tadeo Smyth Protein [Mass/Vol] 8.5 g/dL Critically high 6.4-8.2 [facility] Comment on above: Performed By: #### T 7, LIPID, TSH, CMP ####[facility] Nviiwlcnxg9382 [place] [address]Dr. Tadeo Smyth Sodium [Moles/Vol] 140 mmol/L Normal 136-145 [facility] Comment on above: Performed By: #### T 7, LIPID, TSH, CMP ####[facility] Qkzqovlxux5040 [place] [address]Dr. Tadeo Smyth Urea nitrogen [Mass/Vol] 23.0 mg/dL Critically high 7.0-18.0 [facility] Comment on above: Performed By: #### T 7, LIPID, TSH, CMP ####[facility] Aodllfbdxm4727 [place] [address]Dr. Yilan Smyth Urea nitrogen/Creatinine [Mass ratio] 25.0 mg/mg Normal [facility] Comment on above: Performed By: #### T 7, LIPID, TSH, CMP ####[facility] Zuzrgqkkbk9238 [place] [phone]. Margotnicole Smyth TSHon 07-08-2022 TSH 3.748 uIU/mL Critically high 0.358-3.740 [facility] Comment on above: Performed By: #### T 7, LIPID, TSH, CMP ####[facility] Emrgptnbaa0825 [place] [phone]. Tadeo Smyth UA RANDOM W/MICROSCOPICon BACTERIA TRACE Abnormal NONE SEEN [facility] Comment on above: Performed By: #### U AMIC ####[facility] Kukfidacei93[address] [place] [address]Dr. Tadeo Smyth Bilirubin Ql (U) Negative Normal NEGATIVE [facility] Comment on above: Performed By: #### U AMIC ####[facility] Htbxiuyngk[address] [place], [place] [address]Dr. Tadeo Smyth CAST NONE SEEN Normal NONE SEEN [facility] Comment on above: Performed By: #### U AMIC ####[facility] Hmtdvqtitu4[address] [place], [place] [address]Dr. Tadeo Smyth Clarity (U) CLEAR Normal CLEAR [facility] Comment on above: Performed By: #### U AMIC ####[facility] Rngoavffyd0074 [place] [address]Dr. Tadeo Smyth Color (U) YELLOW Normal YELLOW [facility] Comment on above: Performed By: #### U AMIC ####[facility] Svjgricebb9990 [place] [address]Dr. Tadeo Smyth Crystals LM Nom (Urine sed) NONE SEEN Normal NONE SEEN [facility] Comment on above: Performed By: #### U AMIC ####[facility] Opiprmfooa6670 [place] [address]Dr. Tadeo Smyth Epithelial cells LM Ql (Urine sed) FEW Abnormal NONE SEEN /RARE [facility] Comment on above: Performed By: #### U AMIC ####[facility] Amhagoywbj4286 [place] [address]Dr. Tadeo Smyth Glucose Ql (U) Negative Normal NEGATIVE [facility] Comment on above: Performed By: #### U AMIC ####[facility] Vqcbfmznrg3132 [place] [address]Dr. Margotnicole Smyth Hemoglobin Ql (U) SMALL Abnormal NEGATIVE [facility] Comment on above: Performed By: #### U AMIC ####[facility] Eawbjebcub7[address] [place], [place] [address]Dr. Tadeo Smyth Ketones Ql (U) TRACE Abnormal NEGATIVE [facility] Comment on above: Performed By: #### U AMIC ####[facility] Kmmeeghztp[address] [place], [place] [address]Dr. Tadeo Smyth LEUKOCYTES TRACE Abnormal NEGATIVE [facility] Comment on above: Performed By: #### U AMIC ####[facility] Xstasdlwsz12[address] [place], [place] [address]Dr. Tadeo Smyth MUCOUS NONE SEEN Normal NONE SEEN [facility] Comment on above: Performed By: #### U AMIC ####[facility] Dfhotzvfvo36[address] [place], [place] [address]Dr. Tadeo Smyth Nitrite Ql (U) Negative Normal NEGATIVE [facility] Comment on above: Performed By: #### U AMIC ####[facility] Lwoybincdt78[address] [place], [place] [address]Dr. Tadeo Smyth pH (U) 6.5 [pH] Normal 5-9 [facility] Comment on above: Performed By: #### U AMIC ####[facility] Owdzdkkcpb00[address] [place], [place] [address]Dr. Tdaeo Smyth RBC 5-10 Abnormal 0-2 [facility] Comment on above: Performed By: #### U AMIC ####[facility] Jbgruponaa37[address] [place], [place] [address]Dr. Tadeo Smyth SPEC GRAVITY 1.020 Normal 1.005-<=1.0 25 [facility] Comment on above: Performed By: #### U AMIC ####[facility] Oateyjlhxq1004 [place] [phone]. Tadeo Smyth UA PROTEIN 30 mg/dl Abnormal NEGATIVE/ TRACE [facility] Comment on above: Performed By: #### U AMIC ####[facility] Krzyegclgs3654 [place], [place] [address]Tx. Tadeo Smyth Urobilinogen Qn (U) 0.2 {Benito'U}/dL Normal 0.2 - 1. 0 [facility] Comment on above: Performed By: #### U AMIC ####[facility] Klfeycjqhh2078 [place] [phone]. Tadeo Smyth WBC 2-5 Abnormal NONE SEEN [facility] Comment on above: Performed By: #### U AMIC ####[facility] Etkynfxwdf6239 [place] [address]Dr. Tadeo Smyth Covid-19 PCR (CVDTBH)on 06-07 SARS-CoV-2 (COVID-19) RNA CHEN+probe Ql (Unsp spec) Not detected Normal NOT DETECTED [facility] Comment on above: Result Comment: When diagnostic [...] for this test is supported by the [employer] of [employer] and [employer] Service's declaration that [...] be used). Performed By: #### C VDTBH ####[facility] Envuewmrgc1513 [place] [phone]. Tadeo Smyth CULTURE URINEon 06-09-2022 CULTURE URINE Normal [facility] Comment on above: Performed By: #### U RCX ####[facility] Vkgxsxrosb[address] [place], [place] [address]Dr. Margotnicole Smyth GI PANEL (PCR)on 06-07-2022 Adenovirus F 40/41 Not detected Normal NOT DETECTED [facility] Comment on above: Performed By: #### G IPANEL ####[facility] Byafhzbtxs8[address] [place], [place] [address]Dr. Tadeo Smyth Astrovirus Not detected Normal NOT DETECTED [facility] Comment on above: Performed By: #### G IPANEL ####[facility] Cmwoblxwso18[address] [place], [place] [address]Dr. Tadeo Smyth C. Diff toxin A/B Not detected Normal NOT DETECTED [facility] Comment on above: Performed By: #### G IPANEL ####[facility] Gorekamqvr4198[address] [place], [place] [address]Dr. Tadeo Smyth Campylobacter Not detected Normal NOT DETECTED [facility] Comment on above: Performed By: #### G IPANEL ####[facility] Ciosxnznyl12[address] [place], [place] [address]Dr. Margotnicole Smyth Cryptosporidium Not detected Normal NOT DETECTED [facility] Comment on above: Performed By: #### G IPANEL ####[facility] Ytozhmplyp65[address] [place], [place] [address]Dr. Margotnicole Smyth Cyclos. Cayetanensis Not detected Normal NOT DETECTED [facility] Comment on above: Performed By: #### G IPANEL ####[facility] Nltbbvkwbc3912[address] [place], [place] [address]Dr. Margotnicole Smyth E. Coli O157 Not Applicable Normal Not Applicable [facility] Comment on above: Performed By: #### G IPANEL ####[facility] Ikdxouqjvr7138[address] [place], [place] [address]Dr. Margotnicole Smyth E. histolytica Not detected Normal NOT DETECTED [facility] Comment on above: Performed By: #### G IPANEL ####[facility] Mroksqxsna088[address] [place], [place] [address]Dr. Tadeo Smyth EAEC Not detected Normal NOT DETECTED [facility] Comment on above: Performed By: #### G IPANEL ####[facility] Fpfpqenvor0215 [place] [address]Dr. Tadeo Smyth EIEC Not detected Normal NOT DETECTED [facility] Comment on above: Performed By: #### G IPANEL ####[facility] Pcxtvviwdu3742 [place] [address]Dr. Tadeo Smyth EPEC Not detected Normal NOT DETECTED [facility] Comment on above: Performed By: #### G IPANEL ####[facility] Vfenkuffva706[address] [place], [place] [address]Dr. Tadeo Smyth ETEC Not detected Normal NOT DETECTED [facility] Comment on above: Performed By: #### G IPANEL ####[facility] Zbaskvchgh48[address] [place], [place] [address]Dr. Tadeo Smyth G. Lamblia Not detected Normal NOT DETECTED [facility] Comment on above: Performed By: #### G IPANEL ####[facility] Twoalfoxgs417[address] [place], [place] [address]Dr. Tadeo [facility] CONTROLS PASSED Normal [facility] Comment on above: Performed By: #### G IPANEL ####[facility] Grmladbpul17[address] [place], [place] [address]Dr. Tadeo [facility] HEADER GI PANEL BACTERIA Normal T [facility] Comment on above: Performed By: #### G IPANEL ####[facility] Hcjpsczbpe1066[address] [place], [place] [address]Dr. Tadeo [facility] ECOLI GI PANEL DIARRHEAGEN IC E.COLI / SHIGELLA Normal [facility] Comment on above: Performed By: #### G IPANEL ####[facility] Lktjxbbbib25[address] [place], [place] [address]Dr. [facility] INFO SEE BELOW Normal [facility] Comment on above: Result Comment: EAEC - Enteroaggregative E. Coli EPEC- Enteropathogenic E. Coli ETEC- Enterotoxigenic E. Coli lt/st STEC- Shigella-like toxin-producing E. Coli stx1/stx2 EIEC- Shigella/Enteroinvasive E. Coli Performed By: #### G IPANEL ####[facility] Gzllzmjiai29[address] [place], [place] [address]Dr. Margotnicole Smyth GIPNLHD PARASITES GI PANEL PARASITES Normal [facility] Comment on above: Performed By: #### G IPANEL ####[facility] Dagdepbzcb040[address] [place], [place] [address]Dr. Margotnicole Smyth GIPNLHD VIRUS GI PANEL VIRUSES Normal [facility] Comment on above: Performed By: #### G IPANEL ####[facility] Oxxtoenkys1858[address] [place], [place] [address]Dr. Margotnicole Smyth Norovirus GI/GII Not detected Normal NOT DETECTED [facility] Comment on above: Performed By: #### G IPANEL ####[facility] Gzdntarfgc2412[address] [place], [place] [address]Dr. Tadeo Smyth P. Shigelloides Not detected Normal NOT DETECTED [facility] Comment on above: Performed By: #### G IPANEL ####[facility] Knzpyckbec826[address] [place], [place] [address]Dr. Margotnicole Smyth Rotavirus A Not detected Normal NOT DETECTED [facility] Comment on above: Performed By: #### G IPANEL ####[facility] Cjvfmswdat836[address] [place], [place] [address]Dr. Tadeo Smyth Salmonella Not detected Normal NOT DETECTED [facility] Comment on above: Performed By: #### G IPANEL ####[facility] Wqocjpjevk3565[address] [place], [place] [address]Dr. Tadeo Smyth Sapovirus Not detected Normal NOT DETECTED [facility] Comment on above: Performed By: #### G IPANEL ####[facility] Bydgpdkvxl0717[address] [place], [place] [address]Dr. Tadeo Smyth STEC Not detected Normal NOT DETECTED [facility] Comment on above: Performed By: #### G IPANEL ####[facility] Yaykharsty7355[address] [place], [place] [address]Dr. Tadeo Smyth Vibrio Not detected Normal NOT DETECTED [facility] Comment on above: Performed By: #### G IPANEL ####[facility] Wfdghlhnyj4034[address] [place], [place] [address]Dr. Tadeo Smyth Vibrio Cholera Not detected Normal NOT DETECTED [facility] Comment on above: Performed By: #### G IPANEL ####[facility] Gdiodhhheq108[address] [place], [place] [address]Dr. Tadeo Smyth Y. Enterocolitica Not detected Normal NOT DETECTED [facility] Comment on above: Performed By: #### G IPANEL ####[facility] Lmtnjdhput83[address] [place], [place] [address]Dr. Tadeo Smyth AMYLASEon 06-06-2022 Amylase [Catalytic activity/Vol] 61 U/L Normal 25-115 [facility] Comment on above: Performed By: #### A MY, LIPA ####[facility] Gafnofkdwa712[address] [place], [place] [address]Dr. Tadeo Smyth CBC AUTO DIFFon 06-06-2022 BASO # 0.0 103/ul Normal 0.0-0.1 [facility] Comment on above: Performed By: #### C BC ####[facility] Dzatdwmudx9916[address] [place], [place] [address]Dr. Tadeo Smyth Basophils/100 WBC (Bld) 0.5 % Normal 0.2-2.0 [facility] Comment on above: Performed By: #### C BC ####[facility] Hgnjysbqgr9560[address] [place], [place] [address]Dr. Tadeo Smyth EO # 0.2 103/ul Normal 0.0-0.7 [facility] Comment on above: Performed By: #### C BC ####[facility] Krkgqlappw787[address] [place], [place] [address]Dr. Tadeo Smyth Eosinophils/100 WBC (Bld) 3.4 % Normal 0.9-7.0 [facility] Comment on above: Performed By: #### C BC ####[facility] Rbivapaofh3617[address] [place], [place] [address]Dr. Tadeo Smyth Erythrocyte distribution width (RBC) [Ratio] 13.2 % Normal 11.0-15.0 [facility] Comment on above: Performed By: #### C BC ####[facility] Tawhemcjei23[address] [place], [place] [address]Dr. Tadeo Smyth Hematocrit (Bld) [Volume fraction] 38.3 % Normal 36.0-48.0 [facility] Comment on above: Performed By: #### C BC ####[facility] Jqtxuxmall5642 [place] [address]DrNeo Tadeo Smyth Hemoglobin (Bld) [Mass/Vol] 12.0 g/dL Normal 12.0-16.0 [facility] Comment on above: Performed By: #### C BC ####[facility] Xpmpoqhbba15[address] [place], [place] [address]DrNeo Tadeo Smyth IG # 0.01 10e3/ul Normal 0.00-0.03 [facility] Comment on above: Performed By: #### C BC ####[facility] Ozmrcljefh5212[address] [place], [place] [address]DrNeo Tadeo Smyth IG % 0.2 % Normal 0.0-0.5 [facility] Comment on above: Performed By: #### C BC ####[facility] Xaartsjxdt1120[address] [place], [place] [address]DrNeo Tadeo Smyth LYMPH # 1.7 103/ul Normal 1.2-3.8 [facility] Comment on above: Performed By: #### C BC ####[facility] Nmvsnhycpz4828[address] [place], [place] [address]DrNeo Tadeo Smyth Lymphocytes/100 WBC (Bld) 28.1 % Normal 20.5-60.0 [facility] Comment on above: Performed By: #### C BC ####[facility] Nuhtlksezv8018[address] [place], [place] [address]DrNeo Margotnicole Smyth MANUAL DIFF REQ NO Normal [facility] Comment on above: Performed By: #### C BC ####[facility] Ktvemtzffr5414[address] [place], [place] [address]DrNeo Tadeo Smyth MCH (RBC) [Entitic mass] 28.5 pg Normal 26.7-34.0 [facility] Comment on above: Performed By: #### C BC ####[facility] Svsdzfclfj834[address] [place], [place] [address]DrNeo Margotnicole Smyth MCHC (RBC) [Mass/Vol] 31.3 g/dL Normal 29.9-35.2 [facility] Comment on above: Performed By: #### C BC ####[facility] Nxpwdndnfz9389 [place] [address]DrNeo Smyth MCV (RBC) [Entitic vol] 91.0 fL Normal 81.0-99.0 [facility] Comment on above: Performed By: #### C BC ####[facility] Ifmmgknxti8139[address] [place], [place] [address]DrNeo Smyth MONO # 0.4 103/ul Normal 0.3-0.8 [facility] Comment on above: Performed By: #### C BC ####[facility] Mggbccknsm4867[address] [place], [place] [address]DrNeo Smyth Monocytes/100 WBC (Bld) 7.1 % Normal 1.7-12.0 [facility] Comment on above: Performed By: #### C BC ####[facility] Ixvviqmmnw32[address] [place], [place] [address]DrNeo Smyth NEUT # 3.6 103/ul Normal 1.4-6.5 [facility] Comment on above: Performed By: #### C BC ####[facility] Ohpuncqrhu27[address] [place], [place] [address]DrNeo Smyth Neutrophils/100 WBC (Bld) 60.7 % Normal 43.0-75.0 [facility] Comment on above: Performed By: #### C BC ####[facility] Yyzyzgcadm2665[address] [place], [place] [address]DrNeo Smyth Platelet mean volume (Bld) [Entitic vol] 8.9 fL Critically low 9.5-13.5 [facility] Comment on above: Performed By: #### C BC ####[facility] Qrskgktxis8239[address] [place], [place] [address]DrNeo Smyth PLT 374 103/ul Normal 150-450 [facility] Comment on above: Performed By: #### C BC ####[facility] Tatrheijpc3774[address] [place], [place] [address]DrNeo Smyth RBC 4.21 106/ul Normal 4.20-5.40 [facility] Comment on above: Performed By: #### C BC ####[facility] Xuzsvlyzar08[address] [place], [place] [address]Dr. Tadeo Smyth WBC 5.9 103/ul Normal 4.0-11.0 [facility] Comment on above: Performed By: #### C BC ####[facility] Wdjghxxosm[address] [place], [place] [address]Dr. Tadeo Smyth CT ABD/PELV W CONon 06-06-[address] ABD/PELV W CON Normal [facility] ER URINE PROFILEon 2 Bilirubin Ql (U) Negative Normal NEGATIVE [facility] Comment on above: Performed By: #### KAROL MERCHANT ####[facility] Iqoiqvrtuz5074[address] [place], [place] [address]Dr. Tadeo Smyth Clarity (U) CLOUDY Abnormal CLEAR [facility] Comment on above: Performed By: #### KAROL MERCHANT ####[facility] Vaswygmwck8044[address] [place], [place] [address]Dr. Tadeo Smyth Color (U) LT. YELLOW Normal YELLOW [facility] Comment on above: Performed By: #### KAROL MERCHANT ####[facility] Zaqxozrxfi2[address] [place], [place] [address]Dr. Tadeo CAMARGOD A micrscopic examina tion will be performed if indicated. Normal [facility] Comment on above: Performed By: #### KAROL MERCHANT ####[facility] Itnflqmmxk5375[address] [place], [place] [address]Dr. Tadeo Smyth Glucose Ql (U) Negative Normal NEGATIVE [facility] Comment on above: Performed By: #### KAROL MERCHANT ####[facility] Fnwhuumbce7[address] [place], [place] [address]Dr. Tadeo Smyth Hemoglobin Ql (U) TRACE-INTACT Abnormal NEGATIVE [facility] Comment on above: Performed By: #### KAROL MERCHANT ####[facility] Uzsexucmmd05[address] [place], [place] [address]Dr. Tadeo Smyth Ketones Ql (U) Negative Normal NEGATIVE [facility] Comment on above: Performed By: #### SANDRO MERCHANTRO ####[facility] Gbkzgqkhzu59[address] [place], [place] [address]Dr. Tadeo Smyth LEUKOCYTES SMALL Abnormal NEGATIVE [facility] Comment on above: Performed By: #### SANDRO MERCHANTRO ####[facility] Fscvkozsmi1723 [place] [address]Dr. Tadeo Smyth Nitrite Ql (U) Negative Normal NEGATIVE [facility] Comment on above: Performed By: #### SANDRO MERCHANTRO ####[facility] Yrtzwtnrqr[address]25[address] [place], [place] [address]Dr. Tadeo Smyth pH (U) 6.0 [pH] Normal 5-9 [facility] Comment on above: Performed By: #### SANDRO MERCHANTRO ####[facility] Bnzyredege76[address] [place], [place] [address]Dr. Tadeo Smyth SPEC GRAVITY 1.020 Normal 1.005-<=1.0 25 [facility] Comment on above: Performed By: #### SANDRO MERCHANTRO ####[facility] Dbuvekexda206[address] [place], [place] [address]Dr. Tadeo Smyth UA PROTEIN Negative Normal NEGATIVE/ TRACE [facility] Comment on above: Performed By: #### SANDRO MERCHANTRO ####[facility] Smraamgggo[address] [place], [place] [address]Dr. Tadeo Smyth UR MICRO IND INDICATED Normal [facility] Comment on above: Performed By: #### SANDRO MERCHANTRO ####[facility] Bcykwjgvkq[address] [place], [place] [address]Dr. Tadeo Smyth Urobilinogen Qn (U) 0.2 {Benito'U}/dL Normal 0.2 - 1. 0 [facility] Comment on above: Performed By: #### SANDRO MERCHANTRO ####[facility] Mrasxanuoc[address] [place], [place] [address]Dr. Tadeo Smyth LIPASEon 10-02-2022 Lipase [Catalytic activity/Vol] 100.0 U/L Normal 73.0-393.0 [facility] Comment on above: Performed By: #### A MYFLACOA ####[facility] [address]nsrvwu[address] [place] [address]Dr. Tadeo Smyth PROF 14(COMP METB)on 022 Albumin [Mass/Vol] 3.3 g/dL Critically low 3.4-5.0 [facility] Comment on above: Performed By: #### C MP ####[facility] Rnnpnfugba06[address] [place], [place] [address]Dr. Tadeo Smyth Albumin/Globulin [Mass ratio] 0.9 {ratio} Normal [facility] Comment on above: Performed By: #### C MP ####[facility] Gtjibtrjqg85[address] [place], [place] [address]Dr. Tadeo Smyth ALP [Catalytic activity/Vol] 140 U/L Critically high 46-116 [facility] Comment on above: Performed By: #### C MP ####[facility] Vnpyrhwlzy1354[address] [place], [place] [address]Dr. Tadeo Smyth ALT [Catalytic activity/Vol] 23 U/L Normal 14-59 [facility] Comment on above: Performed By: #### C MP ####[facility] Wvxjntughd02[address] [place], [place] [address]Dr. Tadeo Smyth Anion gap [Moles/Vol] 11.6 mmol/L Normal [facility] Comment on above: Performed By: #### C MP ####[facility] Tkwfmqosyy7960[address] [place], [place] [address]Dr. Tadeo Smyth AST [Catalytic activity/Vol] 18 U/L Normal 15-37 [facility] Comment on above: Performed By: #### C MP ####[facility] Brjzrxcepl6649[address] [place], [place] [address]Dr. Tadeo Smyth Bilirubin [Mass/Vol] 0.2 mg/dL Normal 0.2-1.0 [facility] Comment on above: Performed By: #### C MP ####[facility] Qflqgrmkab6837[address] [place], [place] [address]Dr. Tadeo Smyth Calcium [Mass/Vol] 8.8 mg/dL Normal 8.5-10.1 [facility] Comment on above: Performed By: #### C MP ####[facility] Seaklgwnui[address] [place] [address]Dr. Tadeo Smyth Chloride [Moles/Vol] 109 mmol/L Critically high 98-107 [facility] Comment on above: Performed By: #### C MP ####[facility] Jomofoqwrq05[address] [place] [address]Dr. Tadeo Smyth CO2 [Moles/Vol] 26.3 mmol/L Normal 21.0-32.0 [facility] Comment on above: Performed By: #### C MP ####[facility] Pjukogptia9[address] [place], [place] [address]Dr. Tadeo Smyth Creatinine [Mass/Vol] 0.81 mg/dL Normal 0.55-1.02 [facility] Comment on above: Performed By: #### C MP ####[facility] Egzogdwthc993[address] [place], [place] [address]Dr. Tadeo Smyth EGFR-AF SWISS >60 Normal >=60 [facility] Comment on above: Performed By: #### C MP ####[facility] Wpchtdkcid6809[address] [place], [place] [address]Dr. Tadeo Smyth EGFR-NON AF SWISS >60 Normal >=60 [facility] Comment on above: Performed By: #### C MP ####[facility] Dfckdkhjnx104[address] [place], [place] [address]Dr. Tadeo Smyth Globulin (S) [Mass/Vol] 3.7 g/dL Normal [facility] Comment on above: Performed By: #### C MP ####[facility] Qakcjacrfr7940[address] [place], [place] [address]Dr. Tadeo Haja Glucose [Mass/Vol] 90 mg/dL Normal 74-106 [facility] Comment on above: Performed By: #### C MP ####[facility] Dmzxuujrzz5088[address] [place], [place] [address]Dr. Tadeo Smyth Potassium [Moles/Vol] 3.9 mmol/L Normal 3.5-5.1 [facility] Comment on above: Performed By: #### C MP ####[facility] Jbtmbraxvb28[address] [place] [address]Dr. Tadeo Smyth Protein [Mass/Vol] 7.0 g/dL Normal 6.4-8.2 [facility] Comment on above: Performed By: #### C MP ####[facility] Atqguxnnka9936[address] [place], [place] [address]Dr. Margotnicole Smyth Sodium [Moles/Vol] 143 mmol/L Normal 136-145 [facility] Comment on above: Performed By: #### C MP ####[facility] Tiyblyqjxr7190[address] [place], [place] [address]Dr. Tadeo Smyth Urea nitrogen [Mass/Vol] 12.0 mg/dL Normal 7.0-18.0 [facility] Comment on above: Performed By: #### C MP ####[facility] Xfczebdytg8899[address] [place], [place] [address]Dr. Tadeo Smyth Urea nitrogen/Creatinine [Mass ratio] 14.8 mg/mg Normal [facility] Comment on above: Performed By: #### C MP ####[facility] Rcltirvcfz750[address] [place], [place] [address]Dr. Tadeo Smyth URINE MICROSCOPIC ONLYon BACTERIA LARGE Abnormal NONE SEEN [facility] Comment on above: Performed By: #### SANDRO MERCHANTRO ####[facility] Yufltwqvpl8348[address] [place], [place] [address]Dr. Tadeo Smyth Bacteria identified Cx Nom (U) INDICATED Normal [facility] Comment on above: Performed By: #### Matthew FRANCISCO UMICRO ####[facility] Qylcsmcnzv418[address] [place], [place] [address]Dr. Tadeo Smyth CAST NONE SEEN Normal NONE SEEN [facility] Comment on above: Performed By: #### RANDI MERCHANTICRO ####[facility] Fmkksxviwv2636[address] [place], [place] [address]Dr. Tadeo Smyth Crystals LM Nom (Urine sed) NONE SEEN Normal NONE SEEN [facility] Comment on above: Performed By: #### SANDRO MERCHANTRO ####[facility] Ldczgxexbh18[address] [place] [address]Dr. Tadeo Smyth Epithelial cells LM Ql (Urine sed) RARE Normal NONE SEEN /RARE [facility] Comment on above: Performed By: #### KAROL MERCHANT ####[facility] Azjslnytym5[address] [place] [address]Dr. Margotnicole Smyth MUCOUS TRACE Abnormal NONE SEEN [facility] Comment on above: Performed By: #### SANDRO MERCHANTRO ####[facility] Vzwpxzddnv7940[address] [place], [place] [address]Dr. Tadeo Smyth RBC 0-2 Normal 0-2 [facility] Comment on above: Performed By: #### SANDRO MERCHANTRO ####[facility] Fzhwrshaqm225[address] [place], [place] [address]Dr. Tadeo Haja WBC 2-5 Abnormal NONE SEEN [facility] Comment on above: Performed By: #### KAROL MERCHANT ####[facility] Icwdbfzihx035[address] [place], [place] [address]Dr. Tadeo Haja AMYLASEon 06-04-2022 Amylase [Catalytic activity/Vol] 61 U/L Normal 25-115 [facility] Comment on above: Performed By: #### A MY, CMP, LIPA ####[facility] Pgmnschlqn617[address] [place], [place] [address]Dr. Margotnicole Smyth CBC AUTO DIFFon 06-04-2022 BASO # 0.0 103/ul Normal 0.0-0.1 [facility] Comment on above: Performed By: #### C BC ####[facility] Upojoqghpl030[address] [place], [place] [address]Dr. Tadeo Smyth Basophils/100 WBC (Bld) 0.5 % Normal 0.2-2.0 [facility] Comment on above: Performed By: #### C BC ####[facility] Irzyqldzsa5255[address] [place], [place] [address]Dr. Tadeo Smyth EO # 0.3 103/ul Normal 0.0-0.7 [facility] Comment on above: Performed By: #### C BC ####[facility] Akeifibmpp5[address] [place] [id number]. Tadeo Smyth Eosinophils/100 WBC (Bld) 4.7 % Normal 0.9-7.0 [facility] Comment on above: Performed By: #### C BC ####[facility] Pryhxqjvfc6835 [place] [address]Dr. Tadeo Smyth Erythrocyte distribution width (RBC) [Ratio] 13.2 % Normal 11.0-15.0 [facility] Comment on above: Performed By: #### C BC ####[facility] Llzdxtfqiz570[address] [place], [place] [address]Dr. Tadeo Smyth Hematocrit (Bld) [Volume fraction] 36.9 % Normal 36.0-48.0 [facility] Comment on above: Performed By: #### C BC ####[facility] Waawuxbzyr1557[address] [place], [place] [address]Dr. Tadeo Smyth Hemoglobin (Bld) [Mass/Vol] 11.9 g/dL Critically low 12.0-16.0 [facility] Comment on above: Performed By: #### C BC ####[facility] Pgfhkujaem2033[address] [place], [place] [address]Dr. Tadeo Smyth IG # 0.01 10e3/ul Normal 0.00-0.03 [facility] Comment on above: Performed By: #### C BC ####[facility] Znkncezobj0044[address] [place], [place] [address]Dr. Tadeo Smyth IG % 0.2 % Normal 0.0-0.5 [facility] Comment on above: Performed By: #### C BC ####[facility] Djnrbjzabe6116[address] [place], [place] [address]Dr. Tadeo Smyth LYMPH # 2.3 103/ul Normal 1.2-3.8 [facility] Comment on above: Performed By: #### C BC ####[facility] Azlegwwxvj4037[address] [place], [place] [address]Dr. Tadeo Smyth Lymphocytes/100 WBC (Bld) 37.3 % Normal 20.5-60.0 [facility] Comment on above: Performed By: #### C BC ####[facility] Vaacxeolyk[address] [place] [phone]. Tadeo Smyth MANUAL DIFF REQ NO Normal [facility] Comment on above: Performed By: #### C BC ####[facility] Rvorvntdkp5481 [place] [phone]. Tadeo Haja MCH (RBC) [Entitic mass] 29.0 pg Normal 26.7-34.0 [facility] Comment on above: Performed By: #### C BC ####[facility] Suhjewzwei[address] [place], [place] [address]Dr. Tadeo Haja MCHC (RBC) [Mass/Vol] 32.2 g/dL Normal 29.9-35.2 [facility] Comment on above: Performed By: #### C BC ####[facility] Ogsmmspvzk605[address] [place], [place] [address]Dr. Tadeo Smyth MCV (RBC) [Entitic vol] 90.0 fL Normal 81.0-99.0 [facility] Comment on above: Performed By: #### C BC ####[facility] Yqcpgjgmhu805[address] [place], [place] [address]Dr. Tadeo Haja MONO # 0.4 103/ul Normal 0.3-0.8 [facility] Comment on above: Performed By: #### C BC ####[facility] Qdckcwlonk5426[address] [place], [place] [address]Dr. Tadeo Smyth Monocytes/100 WBC (Bld) 6.8 % Normal 1.7-12.0 [facility] Comment on above: Performed By: #### C BC ####[facility] Tfskgajiej0214[address] [place], [place] [address]Dr. Tadeo Smyth NEUT # 3.2 103/ul Normal 1.4-6.5 [facility] Comment on above: Performed By: #### C BC ####[facility] Euuggsmqhy8654[address] [place], [place] [address]Dr. Tadeo Smyth Neutrophils/100 WBC (Bld) 50.5 % Normal 43.0-75.0 [facility] Comment on above: Performed By: #### C BC ####[facility] Cxrvdpulfm6018 [place] [address]Dr. Margotnicole Haja Platelet mean volume (Bld) [Entitic vol] 8.9 fL Critically low 9.5-13.5 [facility] Comment on above: Performed By: #### C BC ####[facility] Ahkfljtsse32[address] [place] [address]Dr. Margotnicole Haja PLT 387 103/ul Normal 150-450 [facility] Comment on above: Performed By: #### C BC ####[facility] Cfmljfwujq6532 [place] [address]Dr. Tadeo Smyth RBC 4.10 106/ul Critically low 4.20-5.40 [facility] Comment on above: Performed By: #### C BC ####[facility] Ygkrqfrzht1844 [place] [address]Dr. Tadeo Smyth WBC 6.2 103/ul Normal 4.0-11.0 [facility] Comment on above: Performed By: #### C BC ####[facility] Lulxenxjtt397[address] [place], [place] [address]Dr. Tadeo Smyth CT ABD/PELV W CONon 06-04-[address] ABD/PELV W CON Normal [facility] ER URINE PROFILEon 2 Bilirubin Ql (U) Negative Normal NEGATIVE [facility] Comment on above: Performed By: #### SANDRO MERCHANTRO ####[facility] Opfpoymzrf9020[address] [place], [place] [address]Dr. Tadeo Smyth Clarity (U) CLEAR Normal CLEAR [facility] Comment on above: Performed By: #### SANDRO MERCHANTRO ####[facility] Szvcsddegy6[address] [place] [address]Dr. Tadeo Smyth Color (U) LT. YELLOW Normal YELLOW [facility] Comment on above: Performed By: #### SANDRO MERCHANTRO ####[facility] Slurppnjap[address] [place] [address]DrNeo Smyth ERUAHD A micrscopic examina tion will be performed if indicated. Normal [facility] Comment on above: Performed By: #### SANDRO MERCHANTRO ####[facility] Izhlfpwqzo1040 [place] [address]Dr. Tadeo Smyth Glucose Ql (U) Negative Normal NEGATIVE [facility] Comment on above: Performed By: #### SANDRO MERCHANTRO ####[facility] Svifblwkin3507 [place] [address]Dr. Tadeo Smyth Hemoglobin Ql (U) TRACE-INTACT Abnormal NEGATIVE [facility] Comment on above: Performed By: #### SANDRO MERCHANTRO ####[facility] Ovddxwmspl6723[address] [place], [place] [address]Dr. Tadeo Symth Ketones Ql (U) Negative Normal NEGATIVE [facility] Comment on above: Performed By: #### SANDRO MERCHANTRO ####[facility] Wtkcqykhqo84[address] [place], [place] [address]Dr. Tadeo Smyth LEUKOCYTES Negative Normal NEGATIVE [facility] Comment on above: Performed By: #### SANDRO MERCHANTRO ####[facility] Dwmxqbhdps7911[address] [place], [place] [address]Dr. Tadeo Smyth Nitrite Ql (U) Negative Normal NEGATIVE [facility] Comment on above: Performed By: #### SANDRO MERCHANTRO ####[facility] Bfbhgzymbm[address] [place], [place] [address]Dr. Tadeo Smyth pH (U) 6.5 [pH] Normal 5-9 [facility] Comment on above: Performed By: #### SANDRO MERCHANTRO ####[facility] Nldkdgrwni[address] [place], [place] [address]Dr. Tadeo Smyth SPEC GRAVITY 1.015 Normal 1.005-<=1.0 25 [facility] Comment on above: Performed By: #### SANDRO MERCHANTRO ####[facility] Xfrkdnedvx69[address] [place] [address]Dr. Tadeo Smyth UA PROTEIN Negative Normal NEGATIVE/ TRACE [facility] Comment on above: Performed By: #### SANDRO MERCHANTRO ####[facility] Eflzmkpxgx83[address] [place] [address]Dr. Tadeo Smyth UR MICRO IND INDICATED Normal [facility] Comment on above: Performed By: #### KAROL MERCHANT ####[facility] Rlwfufqjxn5802 [place] [address]Dr. Tadeo Smyth Urobilinogen Qn (U) 0.2 {Benito'U}/dL Normal 0.2 - 1. 0 [facility] Comment on above: Performed By: #### KAROL MERCHANT ####[facility] Xoysvlekvi[address] [place], [place] [address]Dr. Tadeo Smyth LIPASEon 06-04-2022 Lipase [Catalytic activity/Vol] 81.0 U/L Normal 73.0-393.0 [facility] Comment on above: Performed By: #### A MY, CMP, LIPA ####[facility] Qbiskoqftp8867[address] [place], [place] [address]Dr. Tadeo Smyth PROF 14(COMP METB)on 022 Albumin [Mass/Vol] 3.6 g/dL Normal 3.4-5.0 [facility] Comment on above: Performed By: #### A MY, CMP, LIPA ####[facility] Orvlbwffmf9[address] [place], [place] [address]Dr. Tadeo Smyth Albumin/Globulin [Mass ratio] 1.0 {ratio} Normal [facility] Comment on above: Performed By: #### A MY, CMP, LIPA ####[facility] Lnxzugpmxr202[address] [place], [place] [address]Dr. Tadeo Smyth ALP [Catalytic activity/Vol] 150 U/L Critically high 46-116 [facility] Comment on above: Performed By: #### A MY, CMP, LIPA ####[facility] Xmukggnill60[address] [place] [address]Dr. Tadeo Smyth ALT [Catalytic activity/Vol] 23 U/L Normal 14-59 [facility] Comment on above: Performed By: #### A MY, CMP, LIPA ####[facility] Rkiybkugmp1752 [place] [address]Dr. Tadeo Smyth Anion gap [Moles/Vol] 13.2 mmol/L Normal [facility] Comment on above: Performed By: #### A MY, CMP, LIPA ####[facility] Knhkqsjfnu5108 [place] [address]Dr. Tadeo Smyth AST [Catalytic activity/Vol] 12 U/L Critically low 15-37 [facility] Comment on above: Performed By: #### A MY, CMP, LIPA ####[facility] Pkxmgnqfyd0338 [place] [address]Dr. Tadeo Smyth Bilirubin [Mass/Vol] 0.1 mg/dL Critically low 0.2-1.0 [facility] Comment on above: Performed By: #### A MY, CMP, LIPA ####[facility] Rxgwxntygg3337 [place] [address]Dr. Tadeo Smyth Calcium [Mass/Vol] 9.0 mg/dL Normal 8.5-10.1 [facility] Comment on above: Performed By: #### A MY, CMP, LIPA ####[facility] Lcdufludkn32[address] [place] [address]Dr. Tadeo Smyth Chloride [Moles/Vol] 104 mmol/L Normal 98-107 [facility] Comment on above: Performed By: #### A MY, CMP, LIPA ####[facility] Fwsehxciro9447 [place] [address]Dr. Tadeo Smyth CO2 [Moles/Vol] 26.6 mmol/L Normal 21.0-32.0 [facility] Comment on above: Performed By: #### A MY, CMP, LIPA ####[facility] Ityaczbfsj5210 [place] [address]Dr. Tadeo Smyth Creatinine [Mass/Vol] 0.97 mg/dL Normal 0.55-1.02 [facility] Comment on above: Performed By: #### A MY, CMP, LIPA ####[facility] Sgivmflgjd5[address] [place] [address]Dr. Tadeo Smyth EGFR-AF SWISS >60 Normal >=60 [facility] Comment on above: Performed By: #### A MY, CMP, LIPA ####[facility] Igfdryogsa4066 [place] [address]Dr. Tadeo Smyth EGFR-NON AF SWISS 60 mL/min/1.73m2 Normal >=60 [facility] Comment on above: Performed By: #### A MY, CMP, LIPA ####[facility] Tkdotvskzk2947 [place] [address]Dr. Tadeo Smyth Globulin (S) [Mass/Vol] 3.7 g/dL Normal [facility] Comment on above: Performed By: #### A MY, CMP, LIPA ####[facility] Dybyrwxaoo4615 [place] [address]Dr. Tadeo Smyth Glucose [Mass/Vol] 109 mg/dL Critically high 74-106 [facility] Comment on above: Performed By: #### A MY, CMP, LIPA ####[facility] Zokomchtga6637 [place] [address]Dr. Tadeo Smyth Potassium [Moles/Vol] 3.8 mmol/L Normal 3.5-5.1 [facility] Comment on above: Performed By: #### A MY, CMP, LIPA ####[facility] Oriqycchmc9[address] [place], [place] [address]Dr. Tadeo Smyth Protein [Mass/Vol] 7.3 g/dL Normal 6.4-8.2 [facility] Comment on above: Performed By: #### A MY, CMP, LIPA ####[facility] Nrakbtahik3938 [place] [address]Dr. Tadeo Smyth Sodium [Moles/Vol] 140 mmol/L Normal 136-145 [facility] Comment on above: Performed By: #### A MY, CMP, LIPA ####[facility] Nympamvpug9969 [place] [address]Dr. Tadeo Smyth Urea nitrogen [Mass/Vol] 21.0 mg/dL Critically high 7.0-18.0 [facility] Comment on above: Performed By: #### A MY, CMP, LIPA ####[facility] Tibsexcbau07[address] [place], [place] [address]Dr. Yilan Smyth Urea nitrogen/Creatinine [Mass ratio] 21.6 mg/mg Normal [facility] Comment on above: Performed By: #### A MY, CMP, LIPA ####[facility] Scqeoslchb5521 [place] [address]Dr. Tadeo Smyth URINE MICROSCOPIC ONLYon BACTERIA NONE SEEN Normal NONE SEEN [facility] Comment on above: Performed By: #### Matthew FRANCISCO UMICRO ####[facility] Fwwvwgbhgf668[address] [place] [address]Dr. Tadeo Smyth Bacteria identified Cx Nom (U) NOT INDICATED Normal [facility] Comment on above: Performed By: #### Matthew FRANCISCO UMICRO ####[facility] Jacbjonpdq44[address] [place], [place] [address]Dr. Tadeo Smyth CAST NONE SEEN Normal NONE SEEN [facility] Comment on above: Performed By: #### RANDI MERCHANTICRO ####[facility] Tkbezrzdnq35[address] [place], [place] [address]Dr. Tadeo Smyth Crystals LM Nom (Urine sed) NONE SEEN Normal NONE SEEN [facility] Comment on above: Performed By: #### Matthew FRANCISCO UMICRO ####[facility] Hvsvqysbkz7347[address] [place], [place] [address]Dr. Tadeo Smyth Epithelial cells LM Ql (Urine sed) FEW Abnormal NONE SEEN /RARE [facility] Comment on above: Performed By: #### Matthew FRANCISCO UMICRO ####[facility] Lgfhcbudlg294[address] [place], [place] [address]Dr. Tadeo Smyth MUCOUS NONE SEEN Normal NONE SEEN [facility] Comment on above: Performed By: #### Matthew FRANCISCO UMICRO ####[facility] Svnykcmbqu12[address] [place], [place] [address]Dr. Tadeo Smyth RBC 0-2 Normal 0-2 [facility] Comment on above: Performed By: #### Matthew FRANCISCO UMICRO ####[facility] Ihfyivhqea3826 [place] [address]Dr. Tadeo Smyth WBC NONE SEEN Normal NONE SEEN [facility] Comment on above: Performed By: #### Matthew KAROL FRANCISCO ####[facility] Okjfbmtpfh3518 [place] [phone]. Margotnicole Smyth MICRO OTHER TESTSOrdered By: Guillermo Rocha on 04-29-2022 Fecal WBC Lactoferrin Negative (04/29/22 8:00 AM) Normal Negative [facility] Man Sero CULTURE URINEon 03-31-2022 CULTURE URINE Normal [facility] Comment on above: Performed By: #### U RCX ####[facility] Xxgzexbbpq0191 [place] [address]Dr. Margotnicole Smyth CBC AUTO DIFFon 03-30-2022 BASO # 0.0 103/ul Normal 0.0-0.1 [facility] Comment on above: Performed By: #### C BC ####[facility] Opcrzdrnhc45[address] [place], [place] [address]Dr. Tadeo Smyth Basophils/100 WBC (Bld) 0.4 % Normal 0.2-2.0 [facility] Comment on above: Performed By: #### C BC ####[facility] Saexhyhmwr647[address] [place], [place] [address]Dr. aTdeo Smyth EO # 0.3 103/ul Normal 0.0-0.7 [facility] Comment on above: Performed By: #### C BC ####[facility] Xomjgwsyfl8940[address] [place], [place] [address]Dr. Tadeo Smyth Eosinophils/100 WBC (Bld) 5.1 % Normal 0.9-7.0 [facility] Comment on above: Performed By: #### C BC ####[facility] Yhcvnepxqw[address] [place], [place] [address]Dr. Margotnicole Smyth Erythrocyte distribution width (RBC) [Ratio] 12.8 % Normal 11.0-15.0 [facility] Comment on above: Performed By: #### C BC ####[facility] Suwodhdufx4[address] [place], [place] [address]Dr. Tadeo Smyth Hematocrit (Bld) [Volume fraction] 36.4 % Normal 36.0-48.0 [facility] Comment on above: Performed By: #### C BC ####[facility] Finazqsrgz0399 [place] [phone]. Tadeo Smyth Hemoglobin (Bld) [Mass/Vol] 12.0 g/dL Normal 12.0-16.0 [facility] Comment on above: Performed By: #### C BC ####[facility] Xbulgcjgnh2017 [place] [phone]. Tadeo Smyth IG # 0.02 10e3/ul Normal 0.00-0.03 [facility] Comment on above: Performed By: #### C BC ####[facility] Xshcegmofv4109 [place] [address]Dr. Tadeo Smyth IG % 0.4 % Normal 0.0-0.5 [facility] Comment on above: Performed By: #### C BC ####[facility] Pzzkrggais8223 [place] [address]Dr. Tadeo Smyth LYMPH # 1.4 103/ul Normal 1.2-3.8 [facility] Comment on above: Performed By: #### C BC ####[facility] Wflmreobtp9598 [place] [address]Dr. Tadeo Smyth Lymphocytes/100 WBC (Bld) 25.5 % Normal 20.5-60.0 [facility] Comment on above: Performed By: #### C BC ####[facility] Ezivjdobml6193 [place] [address]Dr. Tadeo Smyth MANUAL DIFF REQ NO Normal [facility] Comment on above: Performed By: #### C BC ####[facility] V[address]akizpfqe[address] [place], [place] [address]Dr. Tadeo Smyth MCH (RBC) [Entitic mass] 29.1 pg Normal 26.7-34.0 [facility] Comment on above: Performed By: #### C BC ####[facility] Gglgoedxue[address] [place], [place] [address]Dr. Tadeo Smyth MCHC (RBC) [Mass/Vol] 33.0 g/dL Normal 29.9-35.2 [facility] Comment on above: Performed By: #### C BC ####[facility] Crfhmvbdqo0294 [place] [phone]. Tadeo Smyth MCV (RBC) [Entitic vol] 88.3 fL Normal 81.0-99.0 [facility] Comment on above: Performed By: #### C BC ####[facility] Rfxmrettld7079 [place] [phone]. Tadeo Smyth MONO # 0.4 103/ul Normal 0.3-0.8 [facility] Comment on above: Performed By: #### C BC ####[facility] Dlyzwtgyuq5770 [place] [phone]. Tadeo Smyth Monocytes/100 WBC (Bld) 7.1 % Normal 1.7-12.0 [facility] Comment on above: Performed By: #### C BC ####[facility] Kwkbdwdjcr7758 [place] [phone]. Tadeo Smyth NEUT # 3.4 103/ul Normal 1.4-6.5 [facility] Comment on above: Performed By: #### C BC ####[facility] Vjsvanxhpy64[address] [place], [place] [address]Dr. Tadeo Smyth Neutrophils/100 WBC (Bld) 61.5 % Normal 43.0-75.0 [facility] Comment on above: Performed By: #### C BC ####[facility] Bqdlkdoobo0874 [place] [id number]. Tadeo Smyth Platelet mean volume (Bld) [Entitic vol] 8.8 fL Critically low 9.5-13.5 [facility] Comment on above: Performed By: #### C BC ####[facility] Oqepkwoaji9697 [place] [id number]. Tadeo Smyth PLT 324 103/ul Normal 150-450 [facility] Comment on above: Performed By: #### C BC ####[facility] Puusjpxwps7438 [place] [phone]. Tadeo Smyth RBC 4.12 106/ul Critically low 4.20-5.40 [facility] Comment on above: Performed By: #### C BC ####[facility] Anbsxetxfh4[address] [place] [address]Dr. Tadeo Smyth WBC 5.5 103/ul Normal 4.0-11.0 [facility] Comment on above: Performed By: #### C BC ####[facility] Gibvffvlca4787 [place] [address]Dr. Tadeo Smyth PROF 14(COMP METB)on 022 Albumin [Mass/Vol] 3.1 g/dL Critically low 3.4-5.0 [facility] Comment on above: Performed By: #### C MP ####[facility] Kuewkfucuz3045 [place] [address]Dr. Tadeo Smyth Albumin/Globulin [Mass ratio] 0.9 {ratio} Normal [facility] Comment on above: Performed By: #### C MP ####[facility] Wtzsjzcutr[address] [place], [place] [address]Dr. Tadeo Smyth ALP [Catalytic activity/Vol] 119 U/L Critically high 46-116 [facility] Comment on above: Performed By: #### C MP ####[facility] Loalpsvyzx95[address] [place], [place] [address]Dr. Tadeo Smyth ALT [Catalytic activity/Vol] 17 U/L Normal 14-59 [facility] Comment on above: Performed By: #### C MP ####[facility] Rppjimhkiu138[address] [place], [place] [address]Dr. Tadeo Smyth Anion gap [Moles/Vol] 12.0 mmol/L Normal [facility] Comment on above: Performed By: #### C MP ####[facility] Ckjnxsfmmc4529[address] [place], [place] [address]Dr. Tadeo Smyth AST [Catalytic activity/Vol] 16 U/L Normal 15-37 [facility] Comment on above: Performed By: #### C MP ####[facility] Clnvpwfuyg7774[address] [place], [place] [address]Dr. Tadeo Smyth Bilirubin [Mass/Vol] 0.4 mg/dL Normal 0.2-1.0 [facility] Comment on above: Performed By: #### C MP ####[facility] Ibxmybhmby5942 [place] [address]Dr. Tadeo Smyth Calcium [Mass/Vol] 8.9 mg/dL Normal 8.5-10.1 [facility] Comment on above: Performed By: #### C MP ####[facility] Tkxnpqxrnw7162 [place] [address]Dr. Tadeo Smyth Chloride [Moles/Vol] 107 mmol/L Normal 98-107 [facility] Comment on above: Performed By: #### C MP ####[facility] Ipfmlejwee887[address] [place], [place] [address]Dr. Tadeo Smyth CO2 [Moles/Vol] 26.9 mmol/L Normal 21.0-32.0 [facility] Comment on above: Performed By: #### C MP ####[facility] Shtlyylilk6635[address] [place], [place] [address]Dr. Tadeo Smyth Creatinine [Mass/Vol] 0.82 mg/dL Normal 0.55-1.02 [facility] Comment on above: Performed By: #### C MP ####[facility] Pcijmskkau1344[address] [place], [place] [address]Dr. Tadeo Smyth EGFR-AF SWISS >60 Normal >=60 [facility] Comment on above: Performed By: #### C MP ####[facility] Ptxungwbbn2948[address] [place], [place] [address]Dr. Tadeo Smyth EGFR-NON AF SWISS >60 Normal >=60 [facility] Comment on above: Performed By: #### C MP ####[facility] Qhhbvhvzcg3930[address] [place], [place] [address]Dr. Tadeo Smyth Globulin (S) [Mass/Vol] 3.5 g/dL Normal [facility] Comment on above: Performed By: #### C MP ####[facility] Rjkmsrpgnc14[address] [place], [place] [address]Dr. Tadeo Haja Glucose [Mass/Vol] 104 mg/dL Normal 74-106 [facility] Comment on above: Performed By: #### C MP ####[facility] Birzghqama8937[address] [place], [place] [address]Dr. Tadeo Smyth Potassium [Moles/Vol] 3.9 mmol/L Normal 3.5-5.1 [facility] Comment on above: Performed By: #### C MP ####[facility] Clehykwbqh4796[address] [place], [place] [address]Dr. Tadeo Smyht Protein [Mass/Vol] 6.6 g/dL Normal 6.4-8.2 [facility] Comment on above: Performed By: #### C MP ####[facility] Nrnahhqplq0957[address] [place], [place] [address]Dr. Tadeo Smyth Sodium [Moles/Vol] 142 mmol/L Normal 136-145 [facility] Comment on above: Performed By: #### C MP ####[facility] Cfmkmuyyud298868 [address] [place], [place] [address]Dr. Tadeo Smyth Urea nitrogen [Mass/Vol] 5.0 mg/dL Critically low 7.0-18.0 [facility] Comment on above: Performed By: #### C MP ####[facility] Ifvdipcvuc5780[address] [place], [place] [address]Dr. Tadeo Smyth Urea nitrogen/Creatinine [Mass ratio] 6.1 mg/mg Normal [facility] Comment on above: Performed By: #### C MP ####[facility] Vbtzxcaccg565[address] [place], [place] [address]Dr. Tadeo Smyth CBC AUTO DIFFon 03-29-2022 BASO # 0.0 103/ul Normal 0.0-0.1 [facility] Comment on above: Performed By: #### C BC ####[facility] Yckjyauyjx7[address] [place], [place] [address]Dr. Tadeo Smyth Basophils/100 WBC (Bld) 0.4 % Normal 0.2-2.0 [facility] Comment on above: Performed By: #### C BC ####[facility] Wlxeepodip769[address] [place], [place] [address]Dr. Tadeo Smyth EO # 0.2 103/ul Normal 0.0-0.7 [facility] Comment on above: Performed By: #### C BC ####[facility] Jbpkzsynwj313868 [address] [place], [place] [address]Dr. Tadeo Smyth Eosinophils/100 WBC (Bld) 4.3 % Normal 0.9-7.0 [facility] Comment on above: Performed By: #### C BC ####[facility] Uhpggqrzrs6609 [place] [address]Dr. Tadeo Smyth Erythrocyte distribution width (RBC) [Ratio] 12.9 % Normal 11.0-15.0 [facility] Comment on above: Performed By: #### C BC ####[facility] Chtjrqrqhg547[address] [place], [place] [address]Dr. Tadeo Smyth Hematocrit (Bld) [Volume fraction] 33.8 % Critically low 36.0-48.0 [facility] Comment on above: Performed By: #### C BC ####[facility] Yfqjycbffg1677[address] [place], [place] [address]Dr. Tadeo Smyth Hemoglobin (Bld) [Mass/Vol] 11.1 g/dL Critically low 12.0-16.0 [facility] Comment on above: Performed By: #### C BC ####[facility] Efqetbjuew3890[address] [place], [place] [address]Dr. Tadeo Smyth IG # 0.01 10e3/ul Normal 0.00-0.03 [facility] Comment on above: Performed By: #### C BC ####[facility] Yzftutywqs7580[address] [place], [place] [address]Dr. Tadeo Smyth IG % 0.2 % Normal 0.0-0.5 [facility] Comment on above: Performed By: #### C BC ####[facility] Npvlzklhhq032[address] [place], [place] [address]Dr. Tadeo Smyth LYMPH # 1.5 103/ul Normal 1.2-3.8 [facility] Comment on above: Performed By: #### C BC ####[facility] Ugnoqbzyaw3686[address] [place], [place] [address]Dr. Tadeo Smyth Lymphocytes/100 WBC (Bld) 29.9 % Normal 20.5-60.0 [facility] Comment on above: Performed By: #### C BC ####[facility] Xyijclirlt686968 [address] [place], [place] [address]Dr. Tadeo Smyth MANUAL DIFF REQ NO Normal [facility] Comment on above: Performed By: #### C BC ####[facility] Agiiufdxrx6092 [place] [address]Dr. Tadeo Smyth MCH (RBC) [Entitic mass] 29.3 pg Normal 26.7-34.0 [facility] Comment on above: Performed By: #### C BC ####[facility] Krqusiveij890[address] [place], [place] [address]Dr. Tadeo Smyth MCHC (RBC) [Mass/Vol] 32.8 g/dL Normal 29.9-35.2 [facility] Comment on above: Performed By: #### C BC ####[facility] Byyvmwomov0139[address] [place], [place] [address]Dr. Tadeo Smyth MCV (RBC) [Entitic vol] 89.2 fL Normal 81.0-99.0 [facility] Comment on above: Performed By: #### C BC ####[facility] Eatsnjituw080[address] [place], [place] [address]Dr. Tadeo Smyth MONO # 0.4 103/ul Normal 0.3-0.8 [facility] Comment on above: Performed By: #### C BC ####[facility] Ozsnyqtkgg9904[address] [place], [place] [address]Dr. Tadeo Smyth Monocytes/100 WBC (Bld) 7.8 % Normal 1.7-12.0 [facility] Comment on above: Performed By: #### C BC ####[facility] Arxwxdhboi2354[address] [place], [place] [address]DrNeo Smyth NEUT # 2.8 103/ul Normal 1.4-6.5 [facility] Comment on above: Performed By: #### C BC ####[facility] Dmasvoxlnt9537[address] [place], [place] [address]DrNeo Smyth Neutrophils/100 WBC (Bld) 57.4 % Normal 43.0-75.0 [facility] Comment on above: Performed By: #### C BC ####[facility] Nifyeawdda3320[address] [place], [place] [address]DrNeo Smyth Platelet mean volume (Bld) [Entitic vol] 8.9 fL Critically low 9.5-13.5 [facility] Comment on above: Performed By: #### C BC ####[facility] Kxnjwsicjd9331 [place] [address]Dr. Tadeo Smyth PLT 314 103/ul Normal 150-450 [facility] Comment on above: Performed By: #### C BC ####[facility] Nbcuzbqgpk0259 [place] [address]Dr. Tadeo Smyth RBC 3.79 106/ul Critically low 4.20-5.40 [facility] Comment on above: Performed By: #### C BC ####[facility] Rfkxknyjde9609 [place] [address]Dr. Tadeo Smyth WBC 4.9 103/ul Normal 4.0-11.0 [facility] Comment on above: Performed By: #### C BC ####[facility] Xnkimmvvic7307[address] [place], [place] [address]DrNeo Smyth PROF 14(COMP METB)on 022 Albumin [Mass/Vol] 2.8 g/dL Critically low 3.4-5.0 [facility] Comment on above: Performed By: #### C MP ####[facility] Eeneivutbw5031 [place] [address]Dr. Tadeo Smyth Albumin/Globulin [Mass ratio] 0.8 {ratio} Normal [facility] Comment on above: Performed By: #### C MP ####[facility] Twpzmzedas8807 [place] [address]DrNeo Smyth ALP [Catalytic activity/Vol] 117 U/L Critically high 46-116 [facility] Comment on above: Performed By: #### C MP ####[facility] Htilhtgdvl2977 [place] [address]DrNeo Smyth ALT [Catalytic activity/Vol] 13 U/L Critically low 14-59 [facility] Comment on above: Performed By: #### C MP ####[facility] Gfqexnkxgd963[address] [place], [place] [address]Dr. Tadeo Smyth Anion gap [Moles/Vol] 8.7 mmol/L Normal [facility] Comment on above: Performed By: #### C MP ####[facility] Vfftlffnka6689[address] [place], [place] [address]Dr. Tadeo Smyth AST [Catalytic activity/Vol] 12 U/L Critically low 15-37 [facility] Comment on above: Performed By: #### C MP ####[facility] Dqqiusfjpx9636[address] [place], [place] [address]Dr. Tadeo Haja Bilirubin [Mass/Vol] 0.4 mg/dL Normal 0.2-1.0 [facility] Comment on above: Performed By: #### C MP ####[facility] Xaboybakod622[address] [place], [place] [address]Dr. Tadeo Haja Calcium [Mass/Vol] 8.5 mg/dL Normal 8.5-10.1 [facility] Comment on above: Performed By: #### C MP ####[facility] Bwkmehwirs5[address] [place], [place] [address]Dr. Tadeo Haja Chloride [Moles/Vol] 108 mmol/L Critically high 98-107 [facility] Comment on above: Performed By: #### C MP ####[facility] Urnfnmumam4425[address] [place], [place] [address]Dr. Tadeo Haja CO2 [Moles/Vol] 28.0 mmol/L Normal 21.0-32.0 [facility] Comment on above: Performed By: #### C MP ####[facility] Xnnsvbscms2125[address] [place], [place] [address]Dr. Tadeo Haja Creatinine [Mass/Vol] 0.74 mg/dL Normal 0.55-1.02 [facility] Comment on above: Performed By: #### C MP ####[facility] Gkbyvrxpab3880[address] [place], [place] [address]Dr. Tadeo Haja EGFR-AF SWISS >60 Normal >=60 [facility] Comment on above: Performed By: #### C MP ####[facility] Pfjeslbosm695[address] [place], [place] [address]Dr. Tadeo Smyth EGFR-NON AF SWISS >60 Normal >=60 [facility] Comment on above: Performed By: #### C MP ####[facility] Yjspgluxst6417 [place] [address]Dr. Tadeo Smyth Globulin (S) [Mass/Vol] 3.4 g/dL Normal [facility] Comment on above: Performed By: #### C MP ####[facility] Bkpkbcuxxp3892 [place] [address]Dr. Tadeo Haja Glucose [Mass/Vol] 107 mg/dL Critically high 74-106 [facility] Comment on above: Performed By: #### C MP ####[facility] Aleziplipn3650 [place] [address]Dr. Tadeo Smyth Potassium [Moles/Vol] 3.7 mmol/L Normal 3.5-5.1 [facility] Comment on above: Performed By: #### C MP ####[facility] Watjhwswdw5807 [place] [address]Dr. Margotnicole Haja Protein [Mass/Vol] 6.2 g/dL Critically low 6.4-8.2 [facility] Comment on above: Performed By: #### C MP ####[facility] Omnwxtmsyf0909 [place] [address]Dr. Tadeo Haja Sodium [Moles/Vol] 141 mmol/L Normal 136-145 [facility] Comment on above: Performed By: #### C MP ####[facility] Sgqcyctjoh2166 [place] [address]Dr. Margotnicole Haja Urea nitrogen [Mass/Vol] 7.0 mg/dL Normal 7.0-18.0 [facility] Comment on above: Performed By: #### C MP ####[facility] Nbayqttgwa5347 [place] [address]Dr. Margotnicole Haja Urea nitrogen/Creatinine [Mass ratio] 9.5 mg/mg Normal [facility] Comment on above: Performed By: #### C MP ####[facility] Jbhpvokiqg4879 [place] [address]Dr. Tadeo Smyth XR KUB 1 VIEWon 03-29-2022 XR KUB 1 VIEW Normal [facility] CBC AUTO DIFFon 03-28-2022 BASO # 0.0 103/ul Normal 0.0-0.1 [facility] Comment on above: Performed By: #### C BC ####[facility] Ofqoelvtqe3589 [place] [address]Dr. Tadeo Smyth Basophils/100 WBC (Bld) 0.7 % Normal 0.2-2.0 [facility] Comment on above: Performed By: #### C BC ####[facility] Nrsezdyfoq7318[address] [place], [place] [address]Dr. Tadeo Haja EO # 0.2 103/ul Normal 0.0-0.7 [facility] Comment on above: Performed By: #### C BC ####[facility] Vdegudxsnd3148[address] [place], [place] [address]Dr. Tadeo Haja Eosinophils/100 WBC (Bld) 3.3 % Normal 0.9-7.0 [facility] Comment on above: Performed By: #### C BC ####[facility] Iqdnpmlebn4858[address] [place], [place] [address]Dr. Tadeo Smyth Erythrocyte distribution width (RBC) [Ratio] 13.2 % Normal 11.0-15.0 [facility] Comment on above: Performed By: #### C BC ####[facility] Aywbccpzyz9984[address] [place], [place] [address]Dr. Tadeo Smyth Hematocrit (Bld) [Volume fraction] 34.2 % Critically low 36.0-48.0 [facility] Comment on above: Performed By: #### C BC ####[facility] Jbrweohrer808[address] [place], [place] [address]Dr. Tadeo Smyth Hemoglobin (Bld) [Mass/Vol] 10.8 g/dL Critically low 12.0-16.0 [facility] Comment on above: Performed By: #### C BC ####[facility] Jilglgxkiz2298[address] [place], [place] [address]Dr. Tadeo Smyth IG # 0.01 10e3/ul Normal 0.00-0.03 [facility] Comment on above: Performed By: #### C BC ####[facility] Upwycmoril4203 [place] [phone]. Tadeo Smyth IG % 0.2 % Normal 0.0-0.5 [facility] Comment on above: Performed By: #### C BC ####[facility] Vdfphtlwkn7707 [place] [phone]. Tadeo Smyth LYMPH # 1.3 103/ul Normal 1.2-3.8 [facility] Comment on above: Performed By: #### C BC ####[facility] Lxlvkqjyow3678 [place] [phone]. Tadeo Haja Lymphocytes/100 WBC (Bld) 28.4 % Normal 20.5-60.0 [facility] Comment on above: Performed By: #### C BC ####[facility] Ncqruzdvng8269 [place] [address]Dr. Tadeo Smyth MANUAL DIFF REQ NO Normal [facility] Comment on above: Performed By: #### C BC ####[facility] Ahlnelzkmi7266 [place] [address]Dr. Tadeo Smyth MCH (RBC) [Entitic mass] 28.3 pg Normal 26.7-34.0 [facility] Comment on above: Performed By: #### C BC ####[facility] Nqnpnirgeb2258 [place] [address]Dr. Tadeo Smyth MCHC (RBC) [Mass/Vol] 31.6 g/dL Normal 29.9-35.2 [facility] Comment on above: Performed By: #### C BC ####[facility] Ancfxdzcib2477 [place] [phone]. Tadeo Smyth MCV (RBC) [Entitic vol] 89.5 fL Normal 81.0-99.0 [facility] Comment on above: Performed By: #### C BC ####[facility] Guzapenifh529[address] [place], [place] [address]Dr. Tadeo Haja MONO # 0.3 103/ul Normal 0.3-0.8 [facility] Comment on above: Performed By: #### C BC ####[facility] Rqtsdpoxxz8696 [place] [phone]. Tadeo Smyth Monocytes/100 WBC (Bld) 5.5 % Normal 1.7-12.0 [facility] Comment on above: Performed By: #### C BC ####[facility] Dplfcgpfky6621 [place] [phone]. Tadeo Smyth NEUT # 2.8 103/ul Normal 1.4-6.5 [facility] Comment on above: Performed By: #### C BC ####[facility] Khindiwmqr1105 [place] [address]Dr. Tadeo Smyth Neutrophils/100 WBC (Bld) 61.9 % Normal 43.0-75.0 [facility] Comment on above: Performed By: #### C BC ####[facility] Tblebgstzt5591 [place] [address]Dr. Tadeo Smyth Platelet mean volume (Bld) [Entitic vol] 9.1 fL Critically low 9.5-13.5 [facility] Comment on above: Performed By: #### C BC ####[facility] Aglxawonpe2293 [place] [address]Dr. Tadeo Smyth PLT 327 103/ul Normal 150-450 [facility] Comment on above: Performed By: #### C BC ####[facility] Hbkhelftfi0935 [place] [address]Dr. Tadeo Smyth RBC 3.82 106/ul Critically low 4.20-5.40 [facility] Comment on above: Performed By: #### C BC ####[facility] Pzlwcjspvp5530 [place] [address]Dr. Tadeo Smyth WBC 4.5 103/ul Normal 4.0-11.0 [facility] Comment on above: Performed By: #### C BC ####[facility] Hqcoqtovjw2107 [place] [address]Dr. Tadeo Smyth POINT OF CARE GLUCOSEon 07-2 Glucose [Mass/Vol] 84 mg/dL Normal 74-106 [facility] Comment on above: Performed By: #### P OCGLUC ####[facility] Gqmpidjefw236[address] [place], [place] [address]Dr. Tadeo Smyth PROF 14(COMP METB)on 022 Albumin [Mass/Vol] 2.9 g/dL Critically low 3.4-5.0 [facility] Comment on above: Performed By: #### C MP ####[facility] Icdsxyjhri2933[address] [place], [place] [address]Dr. Tadeo Smyth Albumin/Globulin [Mass ratio] 0.9 {ratio} Normal [facility] Comment on above: Performed By: #### C MP ####[facility] Tezmtzyghc180[address] [place], [place] [address]Dr. Tadeo Smyth ALP [Catalytic activity/Vol] 119 U/L Critically high 46-116 [facility] Comment on above: Performed By: #### C MP ####[facility] Gabhbvdiic0075[address] [place], [place] [address]Dr. Tadeo Smyth ALT [Catalytic activity/Vol] 15 U/L Normal 14-59 [facility] Comment on above: Performed By: #### C MP ####[facility] Qkjcgnzcyi376[address] [place], [place] [address]Dr. Tadeo Smyth Anion gap [Moles/Vol] 7.9 mmol/L Normal [facility] Comment on above: Performed By: #### C MP ####[facility] Ukxmjwitns799[address] [place], [place] [address]Dr. Tadeo Smyth AST [Catalytic activity/Vol] 11 U/L Critically low 15-37 [facility] Comment on above: Performed By: #### C MP ####[facility] Yzhpyhpxpe1397[address] [place], [place] [address]Dr. Tadeo Smyth Bilirubin [Mass/Vol] 0.4 mg/dL Normal 0.2-1.0 [facility] Comment on above: Performed By: #### C MP ####[facility] Zkfylneevh9633[address] [place], [place] [address]Dr. Tadeo Smyth Calcium [Mass/Vol] 8.7 mg/dL Normal 8.5-10.1 [facility] Comment on above: Performed By: #### C MP ####[facility] Ssfazothla1164 [place] [phone]. Tadeo Smyth Chloride [Moles/Vol] 109 mmol/L Critically high 98-107 [facility] Comment on above: Performed By: #### C MP ####[facility] Gpgdorcoie9234 [place] [address]Dr. Tadeo Smyth CO2 [Moles/Vol] 27.9 mmol/L Normal 21.0-32.0 [facility] Comment on above: Performed By: #### C MP ####[facility] Tecnvbujzy1853 [place] [address]Dr. Tadeo Haja Creatinine [Mass/Vol] 0.75 mg/dL Normal 0.55-1.02 [facility] Comment on above: Performed By: #### C MP ####[facility] Mdnnolyvmo2644 [place] [address]Dr. Tadeo Haja EGFR-AF SWISS >60 Normal >=60 [facility] Comment on above: Performed By: #### C MP ####[facility] Ipdvzvmcus1495 [place] [address]Dr. Tadeo Haja EGFR-NON AF SWISS >60 Normal >=60 [facility] Comment on above: Performed By: #### C MP ####[facility] Kfyxteqonk0621 [place] [address]Dr. Tadeo Haja Globulin (S) [Mass/Vol] 3.3 g/dL Normal [facility] Comment on above: Performed By: #### C MP ####[facility] Rqrxdaycwr5038 [place] [address]Dr. Tadeo Haja Glucose [Mass/Vol] 95 mg/dL Normal 74-106 [facility] Comment on above: Performed By: #### C MP ####[facility] Nnsudifbpc[address] [place], [place] [address]Dr. Tadeo Smyth Potassium [Moles/Vol] 3.8 mmol/L Normal 3.5-5.1 [facility] Comment on above: Performed By: #### C MP ####[facility] Zmrzbcycwy9337[address] [place], [place] [address]Dr. Tadeo Smyth Protein [Mass/Vol] 6.2 g/dL Critically low 6.4-8.2 [facility] Comment on above: Performed By: #### C MP ####[facility] Vzysidqwtd8[address] [place], [place] [address]Dr. Tadeo Smyth Sodium [Moles/Vol] 141 mmol/L Normal 136-145 [facility] Comment on above: Performed By: #### C MP ####[facility] Pkwtyndgkr8269[address] [place], [place] [address]Dr. Tadeo Smyth Urea nitrogen [Mass/Vol] 8.0 mg/dL Normal 7.0-18.0 [facility] Comment on above: Performed By: #### C MP ####[facility] Cizcwtgqad2294[address] [place], [place] [address]Dr. Tadeo Smyth Urea nitrogen/Creatinine [Mass ratio] 10.7 mg/mg Normal [facility] Comment on above: Performed By: #### C MP ####[facility] Bpyshygotb5564[address] [place], [place] [address]Dr. Tadeo Smyth UA (CLEAN/CATCH) EMBOSSER OPERATOR/MICRO I F IND.on 03-28-2022 Bilirubin Ql (U) Negative Normal NEGATIVE [facility] Comment on above: Performed By: #### U MARE ICRO ####[facility] Xrhvajecun173[address] [place], [place] [address]Dr. Tadeo Smyth Clarity (U) SL CLOUDY Abnormal CLEAR [facility] Comment on above: Performed By: #### U RANDI GARVEYICRO ####[facility] Rchcofsrgg05[address] [place], [place] [address]Dr. Tadeo Smyth Color (U) LT. YELLOW Normal YELLOW [facility] Comment on above: Performed By: #### U MARE UMICRO ####[facility] [address]ptvfhiazp[address] [place] [id number]. Tadeo Smyth Glucose Ql (U) Negative Normal NEGATIVE [facility] Comment on above: Performed By: #### U MARE UMICRO ####[facility] Mmrgxsgddg[address] [place], [place] [address]Dr. Tadeo Smyth Hemoglobin Ql (U) TRACE-INTACT Abnormal NEGATIVE [facility] Comment on above: Performed By: #### U ACSBLANE, UMICRO ####[facility] Esuiwjftur[address] [place] [address]Dr. Tadeo Smyth Ketones Ql (U) TRACE Abnormal NEGATIVE [facility] Comment on above: Performed By: #### U ACSIND, UMICRO ####[facility] Pbasmhcfsd9136 [place] [address]Dr. Tadeo Smyth LEUKOCYTES Negative Normal NEGATIVE [facility] Comment on above: Performed By: #### U ACSIND, UMICRO ####[facility] Lrgflysiwg3[address] [place] [address]Dr. aTdeo Smyth Nitrite Ql (U) Negative Normal NEGATIVE [facility] Comment on above: Performed By: #### U ACSBLANE, UMICRO ####[facility] Vekqtzduoh8[address] [place], [place] [address]Dr. Tadeo Smyth pH (U) 6.5 [pH] Normal 5-9 [facility] Comment on above: Performed By: #### U ACSBLANE, ICRO ####[facility] Qcvbquwvkn332[address] [place], [place] [address]Dr. Tadeo Smyth SPEC GRAVITY 1.015 Normal 1.005-<=1.0 25 [facility] Comment on above: Performed By: #### U ACSBLANE, UMICRO ####[facility] Gcsvzxosfw[address] [place], [place] [address]Dr. Tadeo Smyth UA PROTEIN Negative Normal NEGATIVE/ TRACE [facility] Comment on above: Performed By: #### U ACSBLANE, UMICRO ####[facility] Djwazumvld4[address] [place], [place] [address]Dr. Tadeo Smyth UR MICRO IND INDICATED Normal [facility] Comment on above: Performed By: #### U ACSBLANE, UMICRO ####[facility] Txaleqnnyi48[address] [place], [place] [address]Dr. Tadeo Smyth Urobilinogen Qn (U) 0.2 {Benito'U}/dL Normal 0.2 - 1. 0 [facility] Comment on above: Performed By: #### U ACSBLANE, UMICRO ####[facility] Ddpkasgjgh6971 [place] [address]Dr. Tadeo Smyth URINE MICROSCOPIC ONLYon BACTERIA MODERATE Abnormal NONE SEEN [facility] Comment on above: Performed By: #### U ACSBLANE, UMICRO ####[facility] Jgxjjcuugb7426 [place] [address]Dr. Tadeo Smyth Bacteria identified Cx Nom (U) INDICATED Normal [facility] Comment on above: Performed By: #### U ACSBLANE, UMICRO ####[facility] Ftjwykhetr8424 [place] [address]Dr. Tadeo Smyth CAST NONE SEEN Normal NONE SEEN [facility] Comment on above: Performed By: #### U ACSBLANE, UMICRO ####[facility] Itvjbiamuo7268 [place] [address]Dr. Tadeo Smyth Crystals LM Nom (Urine sed) NONE SEEN Normal NONE SEEN [facility] Comment on above: Performed By: #### U ACSBLANE UMICRO ####[facility] Iulpobrnqp6432 [place] [address]Dr. Tadeo Smyth Epithelial cells LM Ql (Urine sed) RARE Normal NONE SEEN /RARE [facility] Comment on above: Performed By: #### U ACSBLANE, UMICRO ####[facility] Dowskxupbk8388 [place] [address]Dr. Tadeo Smyth MUCOUS NONE SEEN Normal NONE SEEN [facility] Comment on above: Performed By: #### U ACSBLANE UMICRO ####[facility] Fmcmwbgimg2049 [place] [address]Dr. Tadeo Smyth RBC NONE SEEN Abnormal 0-2 [facility] Comment on above: Performed By: #### U ACSBLANE UMICRO ####[facility] Rfkphrmtmy90[address] [place], [place] [address]Dr. Tadeo Smyth WBC 2-5 Abnormal NONE SEEN [facility] Comment on above: Performed By: #### U ACSBLANE UMICRO ####[facility] Kckgyavbzo70[address] [place], [place] [address]Dr. Tadeo Smyth XR ABD FLAT UP_PA Kasey 03-28 XR ABD FLAT UP_PA CH Normal [facility] CBC AUTO DIFFon 03-27-2022 BASO # 0.0 103/ul Normal 0.0-0.1 [facility] Comment on above: Performed By: #### C BC ####[facility] Sfiqmpyfyb6[address] [place] [address]Dr. Tadeo Smyth Basophils/100 WBC (Bld) 0.5 % Normal 0.2-2.0 [facility] Comment on above: Performed By: #### C BC ####[facility] Pgjseiluwf3561 [place] [address]Dr. Tadeo Smyth EO # 0.2 103/ul Normal 0.0-0.7 [facility] Comment on above: Performed By: #### C BC ####[facility] Vnidolbfsy8055 [place] [address]Dr. Tadeo Smyth Eosinophils/100 WBC (Bld) 3.2 % Normal 0.9-7.0 [facility] Comment on above: Performed By: #### C BC ####[facility] Xdnavpcvag511[address] [place], [place] [address]Dr. Tadeo Smyth Erythrocyte distribution width (RBC) [Ratio] 13.1 % Normal 11.0-15.0 [facility] Comment on above: Performed By: #### C BC ####[facility] Rignrdcaat2484 [place] [address]Dr. Tadeo Smyth Hematocrit (Bld) [Volume fraction] 34.8 % Critically low 36.0-48.0 [facility] Comment on above: Performed By: #### C BC ####[facility] Sywbkgkquo3635 [place] [address]Dr. Tadeo Smyth Hemoglobin (Bld) [Mass/Vol] 11.3 g/dL Critically low 12.0-16.0 [facility] Comment on above: Performed By: #### C BC ####[facility] Nddcblwhug305[address] [place], [place] [address]Dr. Tadeo Smyth IG # 0.01 10e3/ul Normal 0.00-0.03 [facility] Comment on above: Performed By: #### C BC ####[facility] Tsyuwmcyym7756 [place] [address]DrNeo Tadeo Smyth IG % 0.2 % Normal 0.0-0.5 [facility] Comment on above: Performed By: #### C BC ####[facility] Upkstplfga28[address] [place], [place] [address]DrNeo Tadeo Haja LYMPH # 1.6 103/ul Normal 1.2-3.8 [facility] Comment on above: Performed By: #### C BC ####[facility] Zuofjitjjz6666[address] [place], [place] [address]DrNeo Tadeo Haja Lymphocytes/100 WBC (Bld) 29.1 % Normal 20.5-60.0 [facility] Comment on above: Performed By: #### C BC ####[facility] Hjadxktend9939[address] [place], [place] [address]DrNeo Tadeo Haja MANUAL DIFF REQ NO Normal [facility] Comment on above: Performed By: #### C BC ####[facility] Hjmyhctsgs1996[address] [place], [place] [address]DrNeo Tadeo Smyth MCH (RBC) [Entitic mass] 29.1 pg Normal 26.7-34.0 [facility] Comment on above: Performed By: #### C BC ####[facility] Yxdiavamnt4597[address] [place], [place] [address]DrNeo Tadeo Smyth MCHC (RBC) [Mass/Vol] 32.5 g/dL Normal 29.9-35.2 [facility] Comment on above: Performed By: #### C BC ####[facility] Qoviczlalo748[address] [place], [place] [address]DrNeo Tadeo Haja MCV (RBC) [Entitic vol] 89.7 fL Normal 81.0-99.0 [facility] Comment on above: Performed By: #### C BC ####[facility] Ddyuvqefvp376[address] [place], [place] [address]DrNeo Smyth MONO # 0.3 103/ul Normal 0.3-0.8 [facility] Comment on above: Performed By: #### C BC ####[facility] Ueooamtyxn0672 [place] [id number]. Tadeo Smyth Monocytes/100 WBC (Bld) 5.7 % Normal 1.7-12.0 [facility] Comment on above: Performed By: #### C BC ####[facility] Tonowwxmmd6247 [place] [id number]. Tadeo Smyth NEUT # 3.5 103/ul Normal 1.4-6.5 [facility] Comment on above: Performed By: #### C BC ####[facility] Ypsjmnfajp0953 [place] [phone]. Tadeo Smyth Neutrophils/100 WBC (Bld) 61.3 % Normal 43.0-75.0 [facility] Comment on above: Performed By: #### C BC ####[facility] Cjnvkhsxvk9571 [place] [address]Dr. Tadeo Smyth Platelet mean volume (Bld) [Entitic vol] 9.1 fL Critically low 9.5-13.5 [facility] Comment on above: Performed By: #### C BC ####[facility] Zzlafvlebr0068 [place] [address]Dr. Tadeo Smyth PLT 355 103/ul Normal 150-450 [facility] Comment on above: Performed By: #### C BC ####[facility] Ludblbayoh3871 [place] [id number]. Tadeo Smyth RBC 3.88 106/ul Critically low 4.20-5.40 [facility] Comment on above: Performed By: #### C BC ####[facility] Tdufbsqhbf3004 [place] [phone]. Tadeo Smyth WBC 5.6 103/ul Normal 4.0-11.0 [facility] Comment on above: Performed By: #### C BC ####[facility] Dntlualngs7749 [place] [phone]. Tadeo Smyth CT ABD/PELV W CONon 03-27-[address] ABD/PELV W CON Normal [facility] CT ABD/PELVIS WO CONon 03-27 CT ABD/PELVIS WO CON Normal [facility] SARS-CoV-2 (COVID-19) RNA CHEN+probe Ql (Unsp spec) Not detected Normal NOT DETECTED [facility] Comment on above: Result Comment: When diagnostic [...] for this test is supported by the [employer] of Health and Human Service's declaration that [...] be used). Performed By: #### C VDTB ####[facility] Veilqxnkgv27[address] [place], [place] [address]Dr. Tadeo Smyth ER URINE PROFILEon Bilirubin Ql (U) Negative Normal NEGATIVE [facility] Comment on above: Performed By: #### E NOLAN PREGU ####[facility] Jtexnffirc362168 [address] [place], [place] [address]Dr. Tadeo Smyth Clarity (U) CLEAR Normal CLEAR [facility] Comment on above: Performed By: #### E NOLAN PREGU ####[facility] Jxrjrycxnv0[address] [place], [place] [address]Dr. Tadeo Smyth Color (U) LT. YELLOW Normal YELLOW [facility] Comment on above: Performed By: #### E SARAH BETHR, PREGU ####[facility] Knnoeuykfu564[address] [place], [place] [address]Dr. Tadeo Smyth ERUAHD A micrscopic examina tion will be performed if indicated. Normal [facility] Comment on above: Performed By: #### E RUR, PREGU ####[facility] Jdypsvmcix0864[address] [place], [place] [address]Dr. Tadeo Smyth Glucose Ql (U) Negative Normal NEGATIVE [facility] Comment on above: Performed By: #### E RUR, PREGU ####[facility] Qafqtxltlh9060[address] [place], [place] [address]Dr. Tadeo Smyth Hemoglobin Ql (U) SMALL Abnormal NEGATIVE [facility] Comment on above: Performed By: #### E RUR, PREGU ####[facility] Cnwbmrpefn36[address] [place], [place] [address]Dr. Tadeo Smyth Ketones Ql (U) TRACE Abnormal NEGATIVE [facility] Comment on above: Performed By: #### E RUR, PREGU ####[facility] Jplooojbmw4075[address] [place], [place] [address]Dr. Tadeo Smyth LEUKOCYTES Negative Normal NEGATIVE [facility] Comment on above: Performed By: #### Matthew RUR, PREGU ####[facility] Xzrktbzixz9935[address] [place], [place] [address]Dr. Tadeo Smyth Nitrite Ql (U) Negative Normal NEGATIVE [facility] Comment on above: Performed By: #### Matthew RUR, PREGU ####[facility] Obwdxlbfgs16[address] [place], [place] [address]Dr. Tadeo Smyth pH (U) 6.0 [pH] Normal 5-9 [facility] Comment on above: Performed By: #### E RUR, PREGU ####[facility] Amjobcstmk812[address] [place], [place] [address]Dr. Tadeo Smyth SPEC GRAVITY >=1.030 Abnormal 1.005-<=1.0 25 [facility] Comment on above: Performed By: #### E RUR, PREGU ####[facility] Zqjstfuodq39[address] [place], [place] [address]Dr. Tadeo Smyth UA PROTEIN Negative Normal NEGATIVE/ TRACE [facility] Comment on above: Performed By: #### Matthew RUR, PREGU ####[facility] Cgfeyzrytt1468 [place] [address]Dr. Tadeo Smyth UR MICRO IND NOT INDICATED Normal [facility] Comment on above: Performed By: #### E RUR, PREGU ####[facility] Wyxnysdyhx7443 [place] [address]Dr. Tadeo Smyth Urobilinogen Qn (U) 0.2 {Benito'U}/dL Normal 0.2 - 1. 0 [facility] Comment on above: Performed By: #### E RUR, PREGU ####[facility] Sktvcejaej2680 [place] [address]Dr. Tadeo Smyth LIPASEon 03-27-2022 Lipase [Catalytic activity/Vol] 126.0 U/L Normal 73.0-393.0 [facility] Comment on above: Performed By: #### L IPA, CMP ####[facility] Dvsjvfifws8525[address] [place], [place] [address]Dr. Tadeo Smyth URon 03-27-2022 , QUAL Negative Normal NEGATIVE [facility] Comment on above: Performed By: #### Matthew RUR, PREGU ####[facility] Uukwzzqcnx2890 [place] [address]Dr. Tadeo Smyth PROF 14(COMP METB)on 022 Albumin [Mass/Vol] 3.6 g/dL Normal 3.4-5.0 [facility] Comment on above: Performed By: #### L IPA, CMP ####[facility] Sulbgcszoj3498 [place] [address]Dr. Tadeo Smyth Albumin/Globulin [Mass ratio] 1.1 {ratio} Normal [facility] Comment on above: Performed By: #### L IPA, CMP ####[facility] Tmfbgulyim2076 [place] [address]Dr. Tadeo Smyth ALP [Catalytic activity/Vol] 139 U/L Critically high 46-116 [facility] Comment on above: Performed By: #### L IPA, CMP ####[facility] Mcyooicysc2522 [place] [address]Dr. Tadeo Smyth ALT [Catalytic activity/Vol] 18 U/L Normal 14-59 [facility] Comment on above: Performed By: #### L IPA, CMP ####[facility] Hjipxkmzuw1908 [place] [address]Dr. Tadeo Smyth Anion gap [Moles/Vol] 10.7 mmol/L Normal Th e [facility] Comment on above: Performed By: #### L IPA, CMP ####[facility] Ebshyetuww4177[address] [place], [place] [address]Dr. Tadeo Smyth AST [Catalytic activity/Vol] 11 U/L Critically low 15-37 [facility] Comment on above: Performed By: #### L IPA, CMP ####[facility] Gmyoegapud4514[address] [place], [place] [address]Dr. Tadeo Smyth Bilirubin [Mass/Vol] 0.2 mg/dL Normal 0.2-1.0 [facility] Comment on above: Performed By: #### L IPA, CMP ####[facility] Epzcyqzqss660[address] [place], [place] [address]Dr. Tadeo Smyth Calcium [Mass/Vol] 9.0 mg/dL Normal 8.5-10.1 [facility] Comment on above: Performed By: #### L IPA, CMP ####[facility] Jzbrwavykv578[address] [place], [place] [address]Dr. Tadeo Smyth Chloride [Moles/Vol] 106 mmol/L Normal 98-107 [facility] Comment on above: Performed By: #### L IPA, CMP ####[facility] Grpiuxapxz4475[address] [place], [place] [address]Dr. Margotnicole Smyth CO2 [Moles/Vol] 26.9 mmol/L Normal 21.0-32.0 [facility] Comment on above: Performed By: #### L IPA, CMP ####[facility] Rpeifaukul37[address] [place], [place] [address]Dr. Tadeo Smyth Creatinine [Mass/Vol] 0.84 mg/dL Normal 0.55-1.02 [facility] Comment on above: Performed By: #### L IPA, CMP ####[facility] Vihzihalqq6070[address] [place], [place] [address]Dr. Yinicole Smyth EGFR-AF SWISS >60 Normal >=60 [facility] Comment on above: Performed By: #### L IPA, CMP ####[facility] Lsoszqfjam2818 [place] [address]Dr. Tadeo Smyth EGFR-NON AF SWISS >60 Normal >=60 [facility] Comment on above: Performed By: #### L IPA, CMP ####[facility] Fpudkhvoqs0677 [place] [phone]. Tadeo Smyth Globulin (S) [Mass/Vol] 3.4 g/dL Normal [facility] Comment on above: Performed By: #### L IPA, CMP ####[facility] Rvlubnmfyn4427[address] [place], [place] [address]Dr. Tadeo Smyth Glucose [Mass/Vol] 96 mg/dL Normal 74-106 [facility] Comment on above: Performed By: #### L IPA, CMP ####[facility] Lddglwwlqr848[address] [place], [place] [address]Dr. Tadeo Smyth Potassium [Moles/Vol] 3.6 mmol/L Normal 3.5-5.1 [facility] Comment on above: Performed By: #### L IPA, CMP ####[facility] Zmmnqsjcwo55[address] [place], [place] [address]Dr. Tadeo Smyth Protein [Mass/Vol] 7.0 g/dL Normal 6.4-8.2 [facility] Comment on above: Performed By: #### L IPA, CMP ####[facility] Zftrjdbhgd40[address] [place], [place] [address]Dr. Tadeo Smyth Sodium [Moles/Vol] 140 mmol/L Normal 136-145 [facility] Comment on above: Performed By: #### L IPA, CMP ####[facility] Bewdhqhcwd9098[address] [place], [place] [address]Dr. Tadeo Smyth Urea nitrogen [Mass/Vol] 23.0 mg/dL Critically high 7.0-18.0 [facility] Comment on above: Performed By: #### L IPA, CMP ####[facility] Ihfzxlvpkp4280[address] [place], [place] [address]Dr. Tadeo Smyth Urea nitrogen/Creatinine [Mass ratio] 27.4 mg/mg Normal [facility] Comment on above: Performed By: #### L IPA, CMP ####[facility] Xjaczhkhnb601[address] [place], [place] [address]Dr. Tadeo Smyth GROUP A STREP CULTUREon S. pyogenes Ag Ql (Unsp spec) Normal [facility] Comment on above: Performed By: #### G RASTCX, SSCRN ####[facility] Feqrzozinb0423[address] [place], [place] [address]Dr. Tadeo Smyth AMYLASEon 02-02-2022 Amylase [Catalytic activity/Vol] 37 U/L Normal 25-115 [facility] Comment on above: Performed By: #### C MP, VIJI, LIPA ####[facility] Mstwbatydq8611[address] [place], [place] [address]Dr. Tadeo Smyth CBC AUTO DIFFon 02-02-2022 BASO # 0.0 103/ul Normal 0.0-0.1 [facility] Comment on above: Performed By: #### C BC ####[facility] Hdwqtxqdlv2218[address] [place], [place] [address]Dr. Tadeo Smyth Basophils/100 WBC (Bld) 0.2 % Normal 0.2-2.0 [facility] Comment on above: Performed By: #### C BC ####[facility] Suychsuvtu2799[address] [place], [place] [address]Dr. Tadeo Smyth EO # 0.0 103/ul Normal 0.0-0.7 [facility] Comment on above: Performed By: #### C BC ####[facility] Vlpyxyrnhw9815[address] [place], [place] [address]Dr. Tadeo Smyth Eosinophils/100 WBC (Bld) 0.2 % Critically low 0.9-7.0 [facility] Comment on above: Performed By: #### C BC ####[facility] Uszccpwpmg369[address] [place], [place] [address]Dr. Tadeo Smyth Erythrocyte distribution width (RBC) [Ratio] 13.4 % Normal 11.0-15.0 [facility] Comment on above: Performed By: #### C BC ####[facility] Rohcsldcrx3307 [place] [address]Dr. Tadeo Smyth Hematocrit (Bld) [Volume fraction] 36.8 % Normal 36.0-48.0 [facility] Comment on above: Performed By: #### C BC ####[facility] Qariqlxnqb0637 [place] [address]Dr. Tadeo Smyth Hemoglobin (Bld) [Mass/Vol] 11.6 g/dL Critically low 12.0-16.0 [facility] Comment on above: Performed By: #### C BC ####[facility] Vtuesjhnds806[address] [place], [place] [address]Dr. Tadeo Smyth IG # 0.08 10e3/ul Critically high 0.00-0.03 [facility] Comment on above: Performed By: #### C BC ####[facility] Fnaqzcymrd2[address] [place], [place] [address]Dr. Tadeo Smyth IG % 0.6 % Critically high 0.0-0.5 [facility] Comment on above: Performed By: #### C BC ####[facility] Ktcdmkjvld924[address] [place], [place] [address]Dr. Tadeo Smyth LYMPH # 0.9 103/ul Critically low 1.2-3.8 [facility] Comment on above: Performed By: #### C BC ####[facility] Mydvrsauzj9713[address] [place], [place] [address]Dr. Tadeo Smyth Lymphocytes/100 WBC (Bld) 6.9 % Critically low 20.5-60.0 [facility] Comment on above: Performed By: #### C BC ####[facility] Afxuqulrdz825[address] [place], [place] [address]Dr. Tadeo Smyth MANUAL DIFF REQ NO Normal [facility] Comment on above: Performed By: #### C BC ####[facility] Exmjxtuvrp1846[address] [place], [place] [address]Dr. Tadeo Smyth MCH (RBC) [Entitic mass] 28.9 pg Normal 26.7-34.0 [facility] Comment on above: Performed By: #### C BC ####[facility] Thxyabbrfb1119 [place] [phone]. Tadeo Smyth MCHC (RBC) [Mass/Vol] 31.5 g/dL Normal 29.9-35.2 [facility] Comment on above: Performed By: #### C BC ####[facility] Kmfgbxpmzo7649 [place] [phone]. Margotnicole Smyth MCV (RBC) [Entitic vol] 91.8 fL Normal 81.0-99.0 [facility] Comment on above: Performed By: #### C BC ####[facility] Vtqymyldah[address] [place], [place] [address]Dr. Margotnicole Haja MONO # 0.9 103/ul Critically high 0.3-0.8 [facility] Comment on above: Performed By: #### C BC ####[facility] Bxajvgirrw8835[address] [place], [place] [address]Dr. Tadeo Smyth Monocytes/100 WBC (Bld) 6.9 % Normal 1.7-12.0 [facility] Comment on above: Performed By: #### C BC ####[facility] Vpttlgmmlw9255[address] [place], [place] [address]Dr. Margotnicole Smyth NEUT # 11.6 103/ul Critically high 1.4-6.5 [facility] Comment on above: Performed By: #### C BC ####[facility] Ewdzigluyk634[address] [place], [place] [address]Dr. Tadeo Smyth Neutrophils/100 WBC (Bld) 85.2 % Critically high 43.0-75.0 [facility] Comment on above: Performed By: #### C BC ####[facility] Veaedsuynd[address] [place], [place] [address]Dr. Tadeo Smyth Platelet mean volume (Bld) [Entitic vol] 8.9 fL Critically low 9.5-13.5 [facility] Comment on above: Performed By: #### C BC ####[facility] Lyqkfrzjhy511[address] [place], [place] [address]Dr. Tadeo Smyth PLT 331 103/ul Normal 150-450 [facility] Comment on above: Performed By: #### C BC ####[facility] Yyaroqexnj7733 [place], [place] [address]Hs. Tadeo Smyth RBC 4.01 106/ul Critically low 4.20-5.40 [facility] Comment on above: Performed By: #### C BC ####[facility] Cnimogoevx0316 [place], [place] [address]Cf. Tadeo Smyth WBC 13.7 103/ul Critically high 4.0-11.0 [facility] Comment on above: Performed By: #### C BC ####[facility] Jnmvuvjefj4376 [place], [place] [address]On. Tadeo Smyth Covid-19 PCR (CVDTBH)on 01-05 SARS-CoV-2 (COVID-19) RNA CHEN+probe Ql (Unsp spec) Not detected Normal NOT DETECTED [facility] Comment on above: Result Comment: When diagnostic [...] for this test is supported by the [employer] of [employer] and Human Service's declaration that [...] be used). Performed By: #### C VDTBH ####[facility] Qzyuzredkd9087 [place] [phone]. Tadeo Smyth LIPASEon 02-02-2022 Lipase [Catalytic activity/Vol] 33.0 U/L Critically low 73.0-393.0 [facility] Comment on above: Performed By: #### C VIJI GARCIA, LIPA ####[facility] Ykqociklnd4114 [place] [address]Dr. Tadeo Smyth MONOon 02-02-2022 Monocytes (Bld) [#/Vol] Negative Normal NEGATIVE [facility] Comment on above: Performed By: #### M JESSICA ####[facility] Lfcohtyojm7657 [place] [address]Dr. Tadeo Smyth PROF 14(COMP METB)on 022 Albumin [Mass/Vol] 3.1 g/dL Critically low 3.4-5.0 [facility] Comment on above: Performed By: #### C MP, VIJI, LIPA ####[facility] Hwjyarbhza5083 [place] [address]Dr. Tadeo Smyth Albumin/Globulin [Mass ratio] 0.9 {ratio} Normal [facility] Comment on above: Performed By: #### C MP, VIJI, LIPA ####[facility] Zlxutlryol0722 [place] [address]Dr. Tadeo Smyth ALP [Catalytic activity/Vol] 131 U/L Critically high 46-116 [facility] Comment on above: Performed By: #### C MP, VIJI, LIPA ####[facility] Dswegfzyij8184 [place] [address]Dr. Tadeo Smyth ALT [Catalytic activity/Vol] 25 U/L Normal 14-59 [facility] Comment on above: Performed By: #### C MP, VIJI, LIPA ####[facility] Yphdnxjdqj9327 [place] [address]Dr. Tadeo Smyth Anion gap [Moles/Vol] 10.0 mmol/L Normal [facility] Comment on above: Performed By: #### C MP, VIJI, LIPA ####[facility] Qkcanpmjsw8491 [place] [address]Dr. Tadeo Smyth AST [Catalytic activity/Vol] 19 U/L Normal 15-37 [facility] Comment on above: Performed By: #### C MP, VIJI, LIPA ####[facility] Jlvrbnnupc1075 [place] [address]Dr. Tadeo Smyth Bilirubin [Mass/Vol] 0.6 mg/dL Normal 0.2-1.0 [facility] Comment on above: Performed By: #### C MP, VIJI, LIPA ####[facility] [id number] [place] [address]Dr. Tadeo Smyth Calcium [Mass/Vol] 8.2 mg/dL Critically low 8.5-10.1 Th e [facility] Comment on above: Performed By: #### C MP, VIJI, LIPA ####[facility] [address] [place], [place] [address]Dr. Tadeo Smyth Chloride [Moles/Vol] 106 mmol/L Normal 98-107 [facility] Comment on above: Performed By: #### C MP VIJI, LIPA ####[facility] Geuapj[address] [place], [place] [address]Dr. Tadeo Smyth CO2 [Moles/Vol] 25.5 mmol/L Normal 21.0-32.0 [facility] Comment on above: Performed By: #### C MP VIJI, LIPA ####[facility] Fdbt[address]ocf[address] [place], [place] [address]Dr. Tadeo Smyth Creatinine [Mass/Vol] 0.78 mg/dL Normal 0.55-1.02 [facility] Comment on above: Performed By: #### C MP VIJI, LIPA ####[facility] [address]cc[address] [place], [place] [address]Dr. Tadeo Smyth EGFR-AF SWISS >60 Normal >=60 [facility] Comment on above: Performed By: #### C MP, VIJI, LIPA ####[facility] [address] [place], [place] [address]Dr. Tadeo Smyth EGFR-NON AF SWISS >60 Normal >=60 [facility] Comment on above: Performed By: #### C MP, VIJI, LIPA ####[facility] K[address] [place], [place] [address]Dr. Tadeo Smyth Globulin (S) [Mass/Vol] 3.6 g/dL Normal [facility] Comment on above: Performed By: #### C MP, VIJI, LIPA ####[facility] Zqllt[address] [place], [place] [address]Dr. Tdaeo Smyth Glucose [Mass/Vol] 110 mg/dL Critically high 74-106 T [facility] Comment on above: Performed By: #### C MP, VIJI, LIPA ####[facility] [address] [place] [address]Dr. Tadeo Smyth Potassium [Moles/Vol] 3.5 mmol/L Normal 3.5-5.1 [facility] Comment on above: Performed By: #### C MP, VIJI, LIPA ####[facility] [address] [place] [address]Dr. Tadeo Smyth Protein [Mass/Vol] 6.7 g/dL Normal 6.4-8.2 [facility] Comment on above: Performed By: #### C MP, VIJI, LIPA ####[facility] [address] [place] [address]Dr. Tadeo Smyth Sodium [Moles/Vol] 138 mmol/L Normal 136-145 [facility] Comment on above: Performed By: #### C MP, VIJI, LIPA ####[facility] [address]qn[address] [place] [address]Dr. Tadeo Smyth Urea nitrogen [Mass/Vol] 11.0 mg/dL Normal 7.0-18.0 [facility] Comment on above: Performed By: #### C MP, VIJI, LIPA ####[facility] [address]cmes[address] [place] [address]Dr. Tadeo Smyth Urea nitrogen/Creatinine [Mass ratio] 14.1 mg/mg Normal [facility] Comment on above: Performed By: #### C MP, VIJI, LIPA ####[facility] [address]viti[address] [place] [address]Dr. Tadeo Smyth STREPT SCREENon 02-02-2022 STREP SCREEN A Negative Normal NEGATIVE [facility] Comment on above: Performed By: #### G RASTCX, SSCRN ####[facility] [address]ft[address]grnad[address] [place] [address]Dr. Tadeo Smyth BASIC METABOLIC PANELon 08-05 Calcium [Mass/Vol] 8.4 mg/dL Low 8.6-10.3 [facility] Comment on above: Order Comment: No: D o not add to previous draw Performed By: #### 3 528, 78008 #### [facility] [address] [place] [address], [place] Chloride [Moles/Vol] 108 mmol/L High 98-107 [facility] Comment on above: Order Comment: No: D o not add to previous draw Performed By: #### 3 887, 26747 #### [facility] [address] [place] [address], [place] CO2 [Moles/Vol] 26 mmol/L Normal 21-31 [facility] Comment on above: Order Comment: No: D o not add to previous draw Performed By: #### 3 900, 26952 #### [facility] [address] [place] [address], [place] Creatinine [Mass/Vol] 0.79 mg/dL Normal 0.60-1.20 [facility] Comment on above: Order Comment: No: D o not add to previous draw Performed By: #### 3 583, 12175 #### [facility] [address] [place] [address], [place] GFR/1.73 sq M predicted among blacks MDRD (S/P/Bld) [Vol rate/Area] mL/min/{1.73_m2} Normal >60 [facility] Comment on above: Order Comment: No: D o not add to previous draw Performed By: #### 3 753, 69059 #### [facility] [address] [place] [address], [place] GFR/1.73 sq M predicted among non-blacks MDRD (S/P/Bld) [Vol rate/Area] mL/min/{1.73_m2} Normal >60 [facility] Comment on above: Order Comment: No: D o not add to previous draw Performed By: #### 3 028, 04609 #### [facility] [address] [place] [address], [place] Glucose [Mass/Vol] 98 mg/dL Normal 70-100 [facility] Comment on above: Order Comment: No: D o not add to previous draw Performed By: #### 3 690, 94365 #### [facility] [address] [place] [address], [place] Potassium [Moles/Vol] 3.5 mmol/L Normal 3.5-5.1 [facility] Comment on above: Order Comment: No: D o not add to previous draw Performed By: #### 3 690, 51012 #### [facility] [address] [place] [address], [place] Sodium [Moles/Vol] 139 mmol/L Normal 136-145 [facility] Comment on above: Order Comment: No: D o not add to previous draw Performed By: #### 3 690, 55149 #### [facility] [address] [place] [address], [place] Urea nitrogen [Mass/Vol] 11 mg/dL Normal 7-25 [facility] Comment on above: Order Comment: No: D o not add to previous draw Performed By: #### 3 690, 01522 #### [facility] [address] [place] [address], [place] BLOOD STOOL GUAIACon 019 BLD STOOL GUAIAC Negative Normal NEGATIVE [facility] Comment on above: Order Comment: No: D o not add to previous draw Performed By: #### 3 690, 94503 #### [facility] [address] [place] [address], [place] MAGNESIUM BLOODon 08-16-2019 Magnesium [Mass/Vol] 2.0 mg/dL Normal 1.9-2.7 [facility] Comment on above: Order Comment: No: D o not add to previous draw Performed By: #### 3 617, 01480 #### [facility] [address] *URINE CULTUREon 08-15-2019 Bacteria identified Cx Nom (U) Clinical Report: (D) Specimen/Source: URINE/MIDSTREAM Collected: 08/15/2019 20:40 Status: Final Last Updated: 08/17/2019 08:05 ISO (Final) Escherichia coli >100,000 Cfu/Ml ISOLATE: Escherichia coli RHONDA (mcg/ml) AMP./SULBAC (AMS) 16/8 Intermediate AMPICILLIN (AM) >16 Resistant AZTREONAM (AZM) <=1 Susceptible CEFAZOLIN (CZ) 2 Susceptible CEFTRIAXONE (WELL FLOW OPERATOR) <=0.5 Susceptible CIPROFLOXACIN (CIP) >2 Resistant ESBL (-/+) (ESBL) Negative GENTAMICIN (GM) <=1 Susceptible NITROFURANTOIN (FT) <=16 Susceptible PIP/TAZO (TZP) 4/4 Susceptible TOBRAMYCIN (TOB) 1 Susceptible TRIMETH/SULFA (SXT) >2/38 Resistant Normal [facility] Comment on above: Performed By: #### 3 6901, 53506 #### [facility] [address] BASIC METABOLIC PANELon 08-05 Calcium [Mass/Vol] 8.8 mg/dL Normal 8.6-10.3 [facility] Comment on above: Order Comment: No: D o not add to previous draw Performed By: #### 0 0071, 97328, 06615 #### [facility] [address] [place] [address], [facility] Chloride [Moles/Vol] 107 mmol/L Normal 98-107 [facility] Comment on above: Order Comment: No: D o not add to previous draw Performed By: #### 0 0071, 61586, 27109 #### [facility] [address] [place] [address], [facility] CO2 [Moles/Vol] 27 mmol/L Normal 21-31 [facility] Comment on above: Order Comment: No: D o not add to previous draw Performed By: #### 0 0071, 42745, 07176 #### [facility] [address] [place] [address], [place] Creatinine [Mass/Vol] 0.99 mg/dL Normal 0.60-1.20 [facility] Comment on above: Order Comment: No: D o not add to previous draw Performed By: #### 0 0071, 72091, 39363 #### [facility] [address] [place] [address], [place] GFR/1.73 sq M predicted among blacks MDRD (S/P/Bld) [Vol rate/Area] mL/min/{1.73_m2} Normal >60 [facility] Comment on above: Order Comment: No: D o not add to previous draw Performed By: #### 0 0071, 94122, 07256 #### [facility] [address] [place] [address], [facility] GFR/1.73 sq M predicted among non-blacks MDRD (S/P/Bld) [Vol rate/Area] 59 ml/min/1.73sq m Abnormal >60 [facility] Comment on above: Order Comment: No: D o not add to previous draw Performed By: #### 0 0071, 47402, 18669 #### [facility] [address] [place] [address], [place] Glucose [Mass/Vol] 100 mg/dL Normal 70-100 [facility] Comment on above: Order Comment: No: D o not add to previous draw Performed By: #### 0 0071, 76650, 37363 #### [facility] [address] [place] [address], [place] Potassium [Moles/Vol] 3.6 mmol/L Normal 3.5-5.1 [facility] Comment on above: Order Comment: No: D o not add to previous draw Performed By: #### 0 0071, 49704, 89364 #### [facility] [address] [place] [address], [facility] Sodium [Moles/Vol] 140 mmol/L Normal 136-145 [facility] Comment on above: Order Comment: No: D o not add to previous draw Performed By: #### 0 0071, 68742, 33724 #### [facility] [address] [place] [address], [facility] Urea nitrogen [Mass/Vol] 9 mg/dL Normal 7-25 [facility] Comment on above: Order Comment: No: D o not add to previous draw Performed By: #### 0 0071, 18506, 70181 #### [facility] [address] [place] [address], [facility] LACTATE BLOODon 08-15-2019 Lactate [Moles/Vol] 0.8 mmol/L Normal 0.5-2.2 [facility] Comment on above: Order Comment: Yes: Add to Previous draw if able Performed By: #### 1 0054 #### [facility] [address] LMWH HEPARIN ASSAYon 019 LOW MOLECULAR WEIGHT HEPARIN 0.32 IU/mL Low 0.60-1.20 [facility] Comment on above: Order Comment: (draw 4 [...] UFH and LMWH. Performed By: #### 3 6901, 06480 #### [facility] [address] [facility] [place] [address], [facility] MAGNESIUM BLOODon 08-15-2019 Magnesium [Mass/Vol] 1.7 mg/dL Low 1.9-2.7 [facility] Comment on above: Order Comment: No: D o not add to previous draw Performed By: #### 0 0071, 58717, 36090 #### [facility] [address] [place] [address], [facility] PHOSPHORUS BLOODon 9 Phosphate [Mass/Vol] 4.1 mg/dL Normal 2.5-5.0 [facility] Comment on above: Order Comment: No: D o not add to previous draw Performed By: #### 0 0071, 18144, 85371 #### [facility] [address] UGI WITH SMALL BOWELon 08-15 UGI WITH SMALL BOWEL [facility] Department of Radiology [address] [place] [phone] Patient Name: CONSTANTINO CARDOSO : 1970 Sex: F Age: Race: White Pt. Location: [id number] Patient Status: O Ordered Date: 08/15/2019 10:45:00 [...] ischemia. Electronically signed by:Orestes Condon. Transcribed by: [email or web address], User Resident: Electronically Signed by: ORESTES CONDON @ 08/15/2019 04:13 PM Normal [facility] Comment on above: Order Comment: R/O O bstruction URINALYSIS REFLEXon 08-15-20 19 Appearance (U) SL CLOUDY Abnormal CLEAR [facility] Comment on above: Order Comment: No: D o not add to previous drawCriteria for reflexing a culture was met. Urine Culture and sensitivitywill be performed. Performed By: #### 3 7232, 20189 #### [facility] [address] [place] [address], [facility] Bilirubin [Mass/Vol] Negative Normal NEGATIVE [facility] Comment on above: Order Comment: No: D o not add to previous drawCriteria for reflexing a culture was met. Urine Culture and sensitivitywill be performed. Performed By: #### 3 225, 16902 #### [facility] [address] [place] [address], [facility] BLOOD SMALL Abnormal NEGATIVE [facility] Comment on above: Order Comment: No: D o not add to previous drawCriteria for reflexing a culture was met. Urine Culture and sensitivitywill be performed. Performed By: #### 3 6900, 45598 #### [facility] [address] [place] [id number], [facility] Color (U) YELLOW Normal YELLOW [facility] Comment on above: Order Comment: No: D o not add to previous drawCriteria for reflexing a culture was met. Urine Culture and sensitivitywill be performed. Performed By: #### 3 825, 59676 #### [facility] [address] [place] [address], [facility] EPIS OCC Normal FEW,OCC,NON E SEEN [facility] Comment on above: Order Comment: No: D o not add to previous drawCriteria for reflexing a culture was met. Urine Culture and sensitivitywill be performed. Performed By: #### 3 540, 81443 #### [facility] [address] [facility] [place] [address], [facility] Glucose [Mass/Vol] Negative Normal NEGATIVE [facility] Comment on above: Order Comment: No: D o not add to previous drawCriteria for reflexing a culture was met. Urine Culture and sensitivitywill be performed. Performed By: #### 3 773, 59602 #### [facility] [address] [place] [address], [facility] HYALINE CASTS 6-10 Abnormal NONE SEEN [facility] Comment on above: Order Comment: No: D o not add to previous drawCriteria for reflexing a culture was met. Urine Culture and sensitivitywill be performed. Performed By: #### 3 426, 56440 #### [facility] [address] [place] [id number], [facility] KETONE Negative Normal NEGATIVE [facility] Comment on above: Order Comment: No: D o not add to previous drawCriteria for reflexing a culture was met. Urine Culture and sensitivitywill be performed. Performed By: #### 3 6901, 96159 #### [facility] [address] [place] [address], [place] LEUK JONN MODERATE Abnormal NEGATIVE [facility] Comment on above: Order Comment: No: D o not add to previous drawCriteria for reflexing a culture was met. Urine Culture and sensitivitywill be performed. Performed By: #### 3 6901, 17769 #### [facility] [address] [place] [address], [facility] MUCUS THREADS FEW Abnormal NONE SEEN [facility] Comment on above: Order Comment: No: D o not add to previous drawCriteria for reflexing a culture was met. Urine Culture and sensitivitywill be performed. Performed By: #### 3 6901, 49423 #### [facility] [address] [place] [address], [place] Nitrite Ql (U) Negative Normal NEGATIVE [facility] Comment on above: Order Comment: No: D o not add to previous drawCriteria for reflexing a culture was met. Urine Culture and sensitivitywill be performed. Performed By: #### 3 6901, 16751 #### [facility] [address] [place] [address], [facility] pH (Bld) 5.0 Normal 5.0-8.0 [facility] Comment on above: Order Comment: No: D o not add to previous drawCriteria for reflexing a culture was met. Urine Culture and sensitivitywill be performed. Performed By: #### 3 6901, 11854 #### [facility] [address] [place] [address], [place] Protein (U) [Mass/Vol] Negative Normal NEGATIVE [facility] Comment on above: Order Comment: No: D o not add to previous drawCriteria for reflexing a culture was met. Urine Culture and sensitivitywill be performed. Performed By: #### 3 6901, 85152 #### [facility] [address] [facility]. [address] RBC (U) [#/Vol] 6-10 Abnormal NONE SEEN [facility] Comment on above: Order Comment: No: D o not add to previous drawCriteria for reflexing a culture was met. Urine Culture and sensitivitywill be performed. Performed By: #### 3 6901, 27985 #### [facility] [address] SPEC GRAV 1.025 High 1.015-1.020 [facility] Comment on above: Order Comment: No: D o not add to previous drawCriteria for reflexing a culture was met. Urine Culture and sensitivitywill be performed. Performed By: #### 3 6901, 98664 #### [facility] [address] WBC UA 51-100 Abnormal NONE SEEN [facility] Comment on above: Order Comment: No: D o not add to previous drawCriteria for reflexing a culture was met. Urine Culture and sensitivitywill be performed. Performed By: #### 3 6901, 27043 #### [facility] [address] CBC COMPLETE BLOOD COUNTon 10-15-2018 Erythrocyte distribution width (RBC) [Ratio] 12.7 % Normal 11.5-15.0 [facility] Comment on above: Order Comment: No: D o not add to previous draw Performed By: #### 5 0608 #### [facility] [address] Hematocrit (Bld) [Volume fraction] 31.2 % Low 36.0-45.0 [facility] Comment on above: Order Comment: No: D o not add to previous draw Performed By: #### 5 0608 #### [facility] [address] [place] [address], [facility] Hemoglobin (Bld) [Mass/Vol] 9.8 g/dL Low 12.0-15.0 [facility] Comment on above: Order Comment: No: D o not add to previous draw Performed By: #### 5 0608 #### [facility] [address] [place] [address], [facility] MCH (RBC) [Entitic mass] 29.1 pg Normal 27.0-33.0 [facility] Comment on above: Order Comment: No: D o not add to previous draw Performed By: #### 5 0608 #### [facility] [address] [place] [address], [facility] MCHC (RBC) [Mass/Vol] 31.4 g/dL Low 32.0-35.0 [facility] Comment on above: Order Comment: No: D o not add to previous draw Performed By: #### 5 0608 #### [facility] [address] [facility] [place] [address], [facility] MCV (RBC) [Entitic vol] 92.6 fL Normal 82.0-98.0 [facility] Comment on above: Order Comment: No: D o not add to previous draw Performed By: #### 5 0608 #### [facility] [address] [place] [address], [facility] Nucleated RBC/100 WBC (Bld) [Ratio] 0 % Normal 0-0 [facility] Comment on above: Order Comment: No: D o not add to previous draw Performed By: #### 5 0608 #### [facility] [address] [facility] [place] [address], [facility] PLAT CNT 340 10*3/uL Normal 150-400 [facility] Comment on above: Order Comment: No: D o not add to previous draw Performed By: #### 5 0608 #### [facility] [address] RBC (Bld) [#/Vol] 3.37 10*6/uL Low 3.80-5.00 [facility] Comment on above: Order Comment: No: D o not add to previous draw Performed By: #### 5 0608 #### [facility] [address] WBC (Bld) [#/Vol] 6.04 10*3/uL Normal 4.00-10.60 [facility] Comment on above: Order Comment: No: D o not add to previous draw Performed By: #### 5 0608 #### [facility] [address] PROTHROMBIN TIMEon 12 9 INR Coag (PPP) [Relative time] 1.09 {INR} Normal 0.91-1.16 [facility] Comment on above: Order Comment: No: [...] 1995;108:231S-246S. Performed By: #### 5 6101 #### [facility] [address] PT Coag (PPP) [Time] 14.1 s Normal 12.3-14.8 [facility] Comment on above: Order Comment: No: D o not add to previous draw Result Comment: ALL RESULTS MUST BE INTERPRETED WITH RESPECT TO BLOOD DRAWING ARTIFACT OR DILUTION ERROR OF ANTICOAGULANT AT THE TIME OF SAMPLING. Performed By: #### 5 6101 #### [address] [place] [address], [facility] LIVER 08-14-2019 [facility] Department of Radiology [address] [place] [phone] Patient Name: CONSTANTINO CARDOSO : 1970 Sex: F Age: Race: White Pt. Location: [id number] Patient Status: O Ordered Date: 08/13/2019 8:30:00 [...] cholecystectomy. Electronically signed by:Orestes Condon. Transcribed by: [email or web address], User Resident: Electronically Signed by: ORESTES CONDON @ 08/14/2019 02:09 PM Normal [facility] Comment on above: Order Comment: R/O S tones BASIC METABOLIC PANELon 12-0 Calcium [Mass/Vol] 9.4 mg/dL Normal 8.6-10.3 [facility] Comment on above: Order Comment: No: D o not add to previous draw Performed By: #### 3 982, 68966 #### [facility] [address] [place] [address], [facility] Chloride [Moles/Vol] 105 mmol/L Normal 98-107 [facility] Comment on above: Order Comment: No: D o not add to previous draw Performed By: #### 3 862, 83831 #### [facility] [address] [place] [address], [place] CO2 [Moles/Vol] 26 mmol/L Normal 21-31 [facility] Comment on above: Order Comment: No: D o not add to previous draw Performed By: #### 3 047, 40833 #### [facility] [address] [place] [address], [place] Creatinine [Mass/Vol] 1.03 mg/dL Normal 0.60-1.20 [facility] Comment on above: Order Comment: No: D o not add to previous draw Performed By: #### 3 2156, 89454 #### [facility] [address] [place] [address], [place] GFR/1.73 sq M predicted among blacks MDRD (S/P/Bld) [Vol rate/Area] mL/min/{1.73_m2} Normal >60 [facility] Comment on above: Order Comment: No: D o not add to previous draw Performed By: #### 3 099, 10963 #### [facility] [address] [place] [address], [place] GFR/1.73 sq M predicted among non-blacks MDRD (S/P/Bld) [Vol rate/Area] 57 ml/min/1.73sq m Abnormal >60 [facility] Comment on above: Order Comment: No: D o not add to previous draw Performed By: #### 3 930, 68430 #### [facility] [address] [place] [address], [place] Glucose [Mass/Vol] 96 mg/dL Normal 70-100 [facility] Comment on above: Order Comment: No: D o not add to previous draw Performed By: #### 3 462, 74401 #### [facility] [address] [place] [address], [place] Potassium [Moles/Vol] 4.1 mmol/L Normal 3.5-5.1 [facility] Comment on above: Order Comment: No: D o not add to previous draw Performed By: #### 3 604, 28984 #### [facility] [address] [place] [address], [place] Sodium [Moles/Vol] 138 mmol/L Normal 136-145 [facility] Comment on above: Order Comment: No: D o not add to previous draw Performed By: #### 3 [id number], [id number] #### [facility] [address] [place] [address], [place] Urea nitrogen [Mass/Vol] 16 mg/dL Normal 7-25 [facility] Comment on above: Order Comment: No: D o not add to previous draw Performed By: #### 3 [id number] #### [facility] [address] [place] [address], [place] CBC W/DIFFon 08-13-2019 ABS BASOPHILS 0.0 10*3/uL Normal 0.0-0.2 [facility] Comment on above: Order Comment: No: D o not add to previous draw Performed By: #### 5 0103 #### [facility] [address] [place] [address], [facility] ABS IMM GRANS 0.0 10*3/uL Normal 0.0-0.2 [facility] Comment on above: Order Comment: No: D o not add to previous draw Performed By: #### 5 0103 #### [facility] [address] [place] [address], [facility] ABS NEUTROPHILS 4.0 10*3/uL Normal 1.6-7.6 [facility] Comment on above: Order Comment: No: D o not add to previous draw Performed By: #### 5 0103 #### [facility] [address] [place] [id number], [facility] Basophils/100 WBC (Bld) 0.5 % Normal 0.0-1.0 [facility] Comment on above: Order Comment: No: D o not add to previous draw Performed By: #### 5 0103 #### [facility] [address] [facility] [place] [address], [facility] Eosinophils (Bld) [#/Vol] 0.2 10*3/uL Normal 0.0-0.5 [facility] Comment on above: Order Comment: No: D o not add to previous draw Performed By: #### 5 0103 #### [facility] [address] [place] [address], [facility] Eosinophils/100 WBC (Bld) 3.3 % Normal 0.0-6.0 [facility] Comment on above: Order Comment: No: D o not add to previous draw Performed By: #### 5 0103 #### [facility] [address] [place] [id number], [facility] Erythrocyte distribution width (RBC) [Ratio] 12.7 % Normal 11.5-15.0 [facility] Comment on above: Order Comment: No: D o not add to previous draw Performed By: #### 5 0103 #### [facility] [address] [facility] [place] [address], [facility] Hematocrit (Bld) [Volume fraction] 33.4 % Low 36.0-45.0 [facility] Comment on above: Order Comment: No: D o not add to previous draw Performed By: #### 5 0103 #### [facility] [address] [facility] [place] [address], [facility] Hemoglobin (Bld) [Mass/Vol] 10.5 g/dL Low 12.0-15.0 [facility] Comment on above: Order Comment: No: D o not add to previous draw Performed By: #### 5 3 #### [facility] [address] [facility] [place] [address], [facility] IMMATURE GRANS 0.2 % Normal 0.0-1.0 [facility] Comment on above: Order Comment: No: D o not add to previous draw Performed By: #### 5 3 #### [facility] [address] [facility] [place] [address], [facility] Lymphocytes (Bld) [#/Vol] 1.8 10*3/uL Normal 1.2-4.0 [facility] Comment on above: Order Comment: No: D o not add to previous draw Performed By: #### 5 3 #### [facility] [address] [facility] [place] [address], [facility] Lymphocytes/100 WBC (Bld) 28.2 % Normal 20.0-45.0 [facility] Comment on above: Order Comment: No: D o not add to previous draw Performed By: #### 5 0103 #### [facility] [address] [place] [address], [facility] MCH (RBC) [Entitic mass] 28.9 pg Normal 27.0-33.0 [facility] Comment on above: Order Comment: No: D o not add to previous draw Performed By: #### 5 0103 #### [facility] [address] [facility] [place] [address], [facility] MCHC (RBC) [Mass/Vol] 31.4 g/dL Low 32.0-35.0 [facility] Comment on above: Order Comment: No: D o not add to previous draw Performed By: #### 5 0103 #### [facility] [address] [place] [address], [facility] MCV (RBC) [Entitic vol] 92.0 fL Normal 82.0-98.0 [facility] Comment on above: Order Comment: No: D o not add to previous draw Performed By: #### 5 3 #### [facility] [address] [facility] [place] [address], [facility] Monocytes (Bld) [#/Vol] 0.4 10*3/uL Normal 0.1-1.0 [facility] Comment on above: Order Comment: No: D o not add to previous draw Performed By: #### 5 0103 #### [facility] [address] [facility] [place] [address], [facility] MONOS 6.2 % Normal 5.0-12.0 [facility] Comment on above: Order Comment: No: D o not add to previous draw Performed By: #### 5 0103 #### [facility] [address] [facility] [place] [address], [facility] Neutrophils/100 WBC (Bld) 61.6 % Normal 40.0-72.0 [facility] Comment on above: Order Comment: No: D o not add to previous draw Performed By: #### 5 3 #### [facility] [address] [place] [id number], [facility] Nucleated RBC/100 WBC (Bld) [Ratio] 0 % Normal 0-0 [facility] Comment on above: Order Comment: No: D o not add to previous draw Performed By: #### 5 0103 #### [facility] [address] [place] [address], [facility] PLAT CNT 382 10*3/uL Normal 150-400 [facility] Comment on above: Order Comment: No: D o not add to previous draw Performed By: #### 5 0103 #### [facility] [address] [place] [address], [facility] RBC (Bld) [#/Vol] 3.63 10*6/uL Low 3.80-5.00 [facility] Comment on above: Order Comment: No: D o not add to previous draw Performed By: #### 5 0103 #### [facility] [address] [place] [address], [facility] WBC (Bld) [#/Vol] 6.45 10*3/uL Normal 4.00-10.60 [facility] Comment on above: Order Comment: No: D o not add to previous draw Performed By: #### 5 0103 #### [facility] [address] [facility] [address], [facility] LIPASE BLOODon 08-13-2019 Lipase [Catalytic activity/Vol] 13 Units/L Normal 11-82 [facility] Comment on above: Performed By: #### 3 [id number], [id number] #### [facility] [address] [facility]. [address] Vital Signs Date Time Vital Sign Value Performing Clinician Facility 07-22-2023 13:19-0500 Body height 170.[address] Work Phone: [facility] 07-22-2023 13:19-0500 Body weight 83.[address] Work Phone: [facility] 07-14-2023 11:40-0500 Diastolic blood pressure 95 mm[Hg] Marques Bradley MD Work Phone: [facility] 07-14-2023 11:40-0500 Heart rate 56 /min Marques Bradley MD Work Phone: [facility] 07-14-2023 11:40-0500 Respiratory rate 16 /min Marques Bradley MD Work Phone: [facility] 07-14-2023 11:40-0500 SaO2% (BldA) [Mass fraction] 97 % Marques Bradley MD Work Phone: [facility] 07-14-2023 11:40-0500 Systolic blood pressure 158 mm[Hg] Marques Bradley MD Work Phone: [facility] 07-14-2023 11:10-0500 Body temperature 97.2 [degF] Marques Bradley MD Work Phone: [facility] 07-14-2023 08:34-0500 Body height 170.2 cm Marques Bradley MD Work Phone: [facility] 07-14-2023 08:34-0500 Body weight 88 kg Marques Bradley MD Work Phone: [facility] 04-21-2023 09:30-0400 Body height 170.18 cm Renny Gan Other [employer] Other 04-21-2023 09:30-0400 Body mass index (BMI) [Ratio] 31.21 kg/m2 Renny Gan Other [employer] Other 04-21-2023 09:30-0400 Body weight 90.4 kg Renny Gan Other [employer] Other 04-21-2023 09:30-0400 Diastolic blood pressure 78 mm[Hg] Renny Gan Other [employer] Other 04-21-2023 09:30-0400 Systolic blood pressure 130 mm[Hg] Renny Gan Other [facility] [employer] Other 03-23-2023 07:33-0400 Diastolic blood pressure 80 mm[Hg] POCKET [employer] Judi Mikael Work Phone: [facility] 03-23-2023 07:33-0400 Heart rate 81 /min [employer] Judi Mikael Work Phone: [facility] 03-23-2023 07:33-0400 Respiratory rate 14 /min [employer] Judi Mikael Work Phone: [facility] 03-23-2023 07:33-0400 SaO2% (BldA) [Mass fraction] 95 % [employer] Judi Mikael Work Phone: [facility] 03-23-2023 07:33-0400 Systolic blood pressure 171 mm[Hg] P[employer]C Judi Mikael Work Phone: [facility] 03-23-2023 06:20-0400 Body height 170.18 cm P[employer]C Judijose manuel Ugaldemer Work Phone: [facility] 03-23-2023 06:20-0400 Body temperature 97.4 [degF] P[employer]C Judi Mikael Work Phone: [facility] 03-23-2023 06:20-0400 Body weight 90 kg [employer]C Judi Mikael Work Phone: [facility] 02-19-2023 00:53-0400 Body temperature 96.98 [degF] Kaylinn Dokken [facility] 02-19-2023 00:53-0400 Diastolic blood pressure 99 mm[Hg] Kaylinn Dokken [facility] 02-19-2023 00:53-0400 Heart rate 75 /min Kaylinn Dokken [facility] 02-19-2023 00:53-0400 Respiratory rate 16 /min Kaylinn Dokken [facility] 02-19-2023 00:53-0400 SaO2% (BldA) [Mass fraction] 98 % Zabrina Patton [facility] 02-19-2023 00:53-0400 Systolic blood pressure 153 mm[Hg] Zabrina Santanaen [facility] 02-15-2023 10:33-0400 Diastolic blood pressure 89 mm[Hg] P[employer]C Judi Mikael Work Phone: [facility] 02-15-2023 10:33-0400 SaO2% (BldA) [Mass fraction] 100 % P[employer]C Judi Mikael Work Phone: [facility] 02-15-2023 10:33-0400 Systolic blood pressure 149 mm[Hg] POCK[employer]ER[employer]C Judi Mikael Work Phone: [facility] 02-15-2023 10:00-0400 Heart rate 83 /min P[employer] Judi Mikael Work Phone: [facility] 02-15-2023 10:00-0400 Respiratory rate 16 /min P[employer] Judi Mikael Work Phone: [facility] 02-15-2023 08:06-0400 Body height 170.18 cm POCK[employer] MARKER[employer]C Judi Mikael Work Phone: [facility] 02-15-2023 08:06-0400 Body temperature 97.6 [degF] P[employer]ER[employer]C Judi Mikael Work Phone: [facility] 02-15-2023 08:06-0400 Body weight 89.2 kg POCK[employer] MARKER[employer]C Judi Mikael Work Phone: [facility] 10-26-2022 08:03-0500 Diastolic blood pressure 87 mm[Hg] P[employer]C Judi Mikael Work Phone: [facility] 10-26-2022 08:03-0500 Heart rate 70 /min [employer] Judijose manuel Ugaldemer Work Phone: [facility] 10-26-2022 08:03-0500 Respiratory rate 18 /min [employer] Judijose manuel Ugaldemer Work Phone: [facility] 10-26-2022 08:03-0500 SaO2% (BldA) [Mass fraction] 98 % P[employer]C Judijose manuel Ugaldemer Work Phone: [facility] 10-26-2022 08:03-0500 Systolic blood pressure 161 mm[Hg] POCK[employer]ER[employer]C Judijose manuel Ugaldemer Work Phone: [facility] 10-26-2022 06:17-0500 Body height 170.18 cm POCKET MARKER[employer]C Judijose manuel Ugaldemer Work Phone: [facility] 10-26-2022 06:17-0500 Body temperature 97.2 [degF] P[employer]C Judi Ugaldemer Work Phone: [facility] 10-26-2022 06:17-0500 Body weight 88.9 kg POCKET MARKER-C Judi Ugaldemer Work Phone: [facility] 07-22-2022 14:34-0500 Diastolic blood pressure 83 mm[Hg] Ospina SALAM [facility] 07-22-2022 14:34-0500 Mean blood pressure 101 mm[Hg] Ospina SALAM [facility] 07-22-2022 14:34-0500 Systolic blood pressure 136 mm[Hg] Ospina SALAM [facility] 07-22-2022 14:30-0500 Blood Pressure Location Ospina SALAM [facility] 07-22-2022 14:30-0500 Diastolic blood pressure 89 mm[Hg] Ospina SALAM [facility] 07-22-2022 14:30-0500 Heart rate 62 /min Ospina SALAM [facility] 07-22-2022 14:30-0500 Respiratory rate 16 /min Ospina SALAM [facility] 07-22-2022 14:30-0500 SaO2% (BldA) [Mass fraction] 98 % Ospina SALAM [facility] 07-22-2022 14:30-0500 Systolic blood pressure 141 mm[Hg] Ospina SALAM [facility] 04-14-2022 14:50-0400 Blood Pressure Location Moniquejuan luis ReddyJimmy [facility] 04-14-2022 14:50-0400 Body temperature 97.16 [degF] Monique Jimmy [facility] 04-14-2022 14:50-0400 Diastolic blood pressure 86 mm[Hg] Monique Jimmy [facility] 04-14-2022 14:50-0400 Heart rate 72 /min Moniquejuan luis ReddyJimmy [facility] 04-14-2022 14:50-0400 SaO2% (BldA) [Mass fraction] 97 % Monique Jimmy [facility] 04-14-2022 14:50-0400 Systolic blood pressure 131 mm[Hg] Monique Jimmy [facility] 01-28-2022 13:36-0400 Blood Pressure Location Monique Jimmy [facility] 01-28-2022 13:36-0400 Body temperature 97.52 [degF] Monique Marquez [facility] 01-28-2022 13:36-0400 Diastolic blood pressure 85 mm[Hg] Monique Marquez [facility] 01-28-2022 13:36-0400 Heart rate 73 /min Monique Marquez [facility] 01-28-2022 13:36-0400 SaO2% (BldA) [Mass fraction] 96 % Monique Marquez [facility] 01-28-2022 13:36-0400 Systolic blood pressure 122 mm[Hg] Monique Marquez [facility] 01-11-2022 10:15-0400 Blood Pressure Location Ospinanoemi [employer] [facility] 01-11-2022 10:15-0400 Diastolic blood pressure 106 mm[Hg] Ospina SALAM [facility] 01-11-2022 10:15-0400 Heart rate 70 /min Ospina SALAM [facility] 01-11-2022 10:15-0400 Respiratory rate 28 /min Ospina SALAM [facility] 01-11-2022 10:15-0400 SaO2% (BldA) [Mass fraction] 99 % Ospina SALAM [facility] 01-11-2022 10:15-0400 Systolic blood pressure 137 mm[Hg] Ospina SALAM [facility] 01-11-2022 10:05-0400 Blood Pressure Location Ospina SALAM [facility] 01-11-2022 10:05-0400 Diastolic blood pressure 74 mm[Hg] Ospina SALAM [facility] 01-11-2022 10:05-0400 Heart rate 67 /min Ospina SALAM [facility] 01-11-2022 10:05-0400 Respiratory rate 14 /min Ospina SALAM [facility] 01-11-2022 10:05-0400 SaO2% (BldA) [Mass fraction] 97 % Ospnia SALAM [facility] 01-11-2022 10:05-0400 Systolic blood pressure 128 mm[Hg] Ospina SALAM [facility] 01-11-2022 10:00-0400 Blood Pressure Location Ospina SALAM [facility] 01-11-2022 10:00-0400 Diastolic blood pressure 79 mm[Hg] Ospina SALAM [facility] 01-11-2022 10:00-0400 Heart rate 66 /min Ospina SALAM [facility] 01-11-2022 10:00-0400 Respiratory rate 16 /min Ospina SALAM [facility] 01-11-2022 10:00-0400 SaO2% (BldA) [Mass fraction] 98 % Ospina SALAM [facility] 01-11-2022 10:00-0400 Systolic blood pressure 134 mm[Hg] Ospina SALAM [facility] 01-11-2022 09:50-0400 Body temperature 97.52 [degF] Ospina SALAM [facility] 01-11-2022 09:45-0400 Respiratory rate 15 /min Ospina SALAM [facility] 01-11-2022 09:18-0400 Body temperature 97.34 [degF] Ospina SALAM [facility] 01-11-2022 09:18-0400 Respiratory rate 20 /min Ospina SALAM [facility] Encounters Encounter Date Encounter Type Care Provider Facility Start: 12-01-2023 ambulatory [facility] Start: 08-25-2023 End: 08-25-2023 ambulatory [facility] Facility:[facility] Start: 07-29-2023 Orders Only Evelyn Black RN Gen era Surgery Comment on above: Gastroparesis (Prima ry Dx) Start: 07-22-2023 End: 07-22-2023 ambulatory MARQUES BRADLEY Facility:[facility] Start: 07-22-2023 Telephone encounter Evelyn Black RN General Surgery Start: 07-22-2023 End: 07-22-2023 Nutrition therapy Melissa Montalvo RD Work Phone: General Surgery Comment on above: Gastroparesis (Prima ry Dx); Malnutrition of moderate degree (HCC); Gastro-esophageal reflux disease without esophagitis; Overweight (BMI 25.0-29.9); Dietary counseling and surveillance Start: 07-22-2023 End: 07-22-2023 Telemedicine consultation with patient Melissa Montalvo RD Work Phone: [facility] Start: 07-14-2023 End: 07-14-2023 ambulatory MARQUES BRADLEY Facility:[facility] Start: 07-14-2023 End: 07-14-2023 Subsequent hospital visit by physician Marques Bradley MD Work Phone: Gastroenterology Comment on above: Dysphagia, unspecifi ed type [R13.10] Start: 07-13-2023 End: 07-13-2023 ambulatory MARQUES BRADLEY Facility:[facility] Start: 06-06-2023 End: 06-07-2023 ambulatory [facility] Facility:[facility] Start: 05-27-2023 Telephone encounter Evelyn Black RN General Surgery Comment on above: Results Start: 05-26-2023 End: 05-26-2023 ambulatory MARQUES BRADLEY Facility:[facility] Start: 05-25-2023 End: 05-25-2023 ambulatory JOEL PANCHAL [facility] Facility:[facility] Start: 05-25-2023 End: 05-25-2023 Nursing evaluation of patient and report Nurse [facility] 2 Work Phone: Gastroenterology Comment on above: Nausea Start: 05-16-2023 Orders Only Evelyn Black RN Gen eral Surgery Comment on above: Nausea (Primary Dx); Dysphagia, unspecified type Start: 05-06-2023 End: 05-07-2023 ambulatory MARQUES BRADLEY Facility:[facility] Start: 05-02-2023 Telephone encounter Evelyn Black RN General Surgery Start: 04-26-2023 Telephone encounter Evelyn Black RN General Surgery Start: 04-21-2023 End: 04-21-2023 ambulatory Renny Gan Other [employer] Other Start: 04-21-2023 Office outpatient vi sit 15 minutes Renny Gan [facility] Gastroenterology Start: 04-18-2023 Telephone encounter Evelyn Black RN General Surgery 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 Start: 04-07-2023 Telephone encounter Guillermo Martinez DO Work Phone: Gastroenterology Comment on above: Appointment Start: 04-05-2023 End: 04-05-2023 ambulatory Imad Asaad Other [employer] Other Start: 04-05-2023 Telephone encounter Imad Asaad [facility] Start: 03-29-2023 ambulatory Facility:U Start: 03-26-2023 ambulatory Facility:[id number] Start: 03-26-2023 End: 03-31-2023 Evaluation and management of inpatient Renny Gan Facility:[facility] Start: 03-26-2023 ambulatory Facility:[id number] Start: 03-24-2023 End: 03-24-2023 ambulatory Imad Asaad Other [employer] Other Start: 03-24-2023 Telephone encounter Imad Asaad [facility] Start: 03-23-2023 End: 03-23-2023 Emergency department patient visit Judi Youssef Facility:[facility] Start: 03-23-2023 End: 03-23-2023 Emergency department patient visit POCKET MARKER[employer]C Judi Youssef Work Phone: [place] Work Phone: Start: 03-22-2023 End: 03-22-2023 ambulatory Imad Asaad Other [employer] Other Start: 03-22-2023 Telephone encounter Imad Asaad [facility] Start: 03-09-2023 End: 03-09-2023 ambulatory Imad Asaad Other [employer] Other Start: 03-09-2023 Telephone encounter Imad Asaad [facility] Start: 03-01-2023 End: 03-01-2023 ambulatory Imad Asaad Other [employer] Other Start: 03-01-2023 Telephone encounter Imad Asaad [facility] Start: 02-19-2023 End: 02-19-2023 Emergency department patient visit Zabrina Patton Facility:[facility] Start: 02-19-2023 End: 02-19-2023 Emergency department patient visit Zabrina Patton [facility] Start: 02-15-2023 End: 02-15-2023 Emergency department patient visit POCKET MARKER-C Judijose manuel Youssef Work Phone: [place] Work Phone: Start: 11-30-2022 End: 12-01-2022 ambulatory JUDIJOSE MANUEL UGALDEMER Facility:[facility] Start: 11-27-2022 End: 11-28-2022 ambulatory JUDIJOSE MANUEL UGALDEMER Facility:[facility] Start: 11-26-2022 End: 11-26-2022 ambulatory Imad Asaad Other [employer] Other Start: 11-26-2022 Telephone encounter Imad Asaad [facility] Start: 11-04-2022 End: 11-04-2022 ambulatory Judijose manuel Youssef Facility:[facility] Start: 11-04-2022 End: 11-04-2022 Admission to same day surgery center P[employer]C Judi Youssef Work Phone: [place] [place] Work Phone: Start: 11-04-2022 End: 11-04-2022 ambulatory POCKET MARKER-C Judijose manuel Youssef Work Phone: [place] Work Phone: Start: 11-01-2022 End: 11-02-2022 ambulatory JUDIJOSE MANUEL YOUSSEF Facility:[facility] Start: 10-26-2022 End: 10-26-2022 Emergency department patient visit Judijose manuel Youssef Facility:[facility] Start: 10-26-2022 End: 10-26-2022 Emergency department patient visit POCKET MARKER-C Judijose manuel Youssef Work Phone: [facility] Work Phone: Start: 09-23-2022 ambulatory Monique Abbasii ty:[facility] Start: 09-21-2022 End: 09-21-2022 ambulatory JUDIJOSE MANUEL YOUSSEF Facility:[facility] Start: 09-18-2022 End: 09-18-2022 ambulatory BALTAZAR GEORGES . Facility:[facility] Start: 09-14-2022 End: 09-14-2022 ambulatory EUN WILSON . Facility:[facility] Start: 09-07-2022 End: 09-07-2022 ambulatory Imad Asaad Other [employer] Other Start: 09-07-2022 Telephone encounter Imad Asaad [facility] Start: 09-06-2022 End: 09-07-2022 ambulatory JUDI YOUSSEF Facility:[facility] Start: 08-20-2022 End: 08-20-2022 ambulatory BALTAZAR GEORGES . Facility:[facility] Start: 08-17-2022 End: 08-18-2022 ambulatory JUDI YOUSSEF Facility:[facility] Start: 08-11-2022 End: 08-12-2022 ambulatory JUDI YOUSSEF Facility:[facility] Start: 08-08-2022 End: 08-08-2022 ambulatory KATHRIN VANCE Facility:[facility] Start: 07-22-2022 End: 07-23-2022 ambulatory Ospina [facility] Facility:[facility] Start: 07-22-2022 End: 07-22-2022 Patient encounter procedure [facility] Start: 07-21-2022 End: 07-21-[address] NORA WINN Facility:[facility] Start: 07-15-2022 ambulatory JUDI YOUSSEF Facility: [facility] Start: 07-12-2022 Encounter for genera l adult medical examination without abnormal findings JUDI YOUSSEF [facility] Start: 07-08-2022 End: 07-09-2022 ambulatory JUDI [...] End: 04-29-2022 Lab Drop off Anai REAGAN [facility] Start: 04-14-2022 End: 04-14-2022 Patient encounter procedure Monique Marquez [facility] Start: 03-27-2022 End: 03-30-2022 Evaluation and management of inpatient SHAIKH Juan Luis DAVIS Facility:[facility] Start: 03-01-2022 End: 03-01-2022 Patient encounter procedure Monique Marquez [facility] [facility] Start: 02-02-2022 End: 02-02-2022 ambulatory BALTAZAR GEORGES . Facility:[facility] Start: 01-28-2022 End: 01-28-2022 Patient encounter procedure Monique Marquez [facility] Start: 01-11-2022 End: 01-11-2022 Patient encounter procedure Anai REAGAN [facility] Start: 12-24-2021 End: 12-24-2021 Patient encounter procedure JHOANA MELGOZA [facility] Start: 08-13-2019 End: 08-16-2019 Evaluation and management of inpatient LEONA MORTENSEN Facility:[facility] Procedures Date Procedure Procedure Detail Performing Clinician Start: 07-14-2023 Esophagoscp rig transoral hypopharynx crv esoph Evelyn Black RN Start: 05-25-2023 Esophageal motility study w/interp&rpt Evelyn Black RN Start: 03-23-2023 Computed tomography of abdomen and pelvis with contrast [employer] Judi Youssef Work Phone: Start: 02-15-2023 Computed tomography of abdomen and pelvis with contrast [employer] Judi Youssef Work Phone: Start: 11-04-2022 CT of small intestine [employer] Judi Youssef Work Phone: Start: 10-26-2022 Computed tomography of abdomen and pelvis with contrast [employer] Judi Youssef Work Phone: Start: 01-11-2022 Esophagogastroduodenoscopy Anai REAGAN Start: 05-13-2021 Esophagogastroduodenoscopy JHOANA Vázquez Start: 09-30-2020 Esophagogastroduodenoscopy JHOANA Vázquez Start: 03-13-2020 Colonoscopy JHOANA MELGOZA Start: 01-30-2020 Esophagogastroduodenoscopy JHOANA PULIDO Y Start: 08-15-2019 FLUOROSCOPY OF UPPER GI AND SMALL BOWEL USING OTHER CONTRAST ORESTES CONDON Start: 05-17-2019 Colonoscopy JHOANA MELGOZA Start: 05-17-2019 Esophagogastroduodenoscopy JHOANA Vázquez Start: 03-02-2019 Hernia surgical mesh (physical object) JHOANA MELGOZA Comment on above: Dr. Mortensen in [place]. Hernia repair JHOANA MELGOZA Hysterectomy JHOANA MELGOZA Plan of Treatment Date Care Activity Detail Author Start: 05-06-2023 Covid-19 Vaccine ( season) Covid-19 Vaccine ( season) [facility] Start: 05-06-2023 Influenza vaccination [facility] Start: 09-05-2022 DEPRESSION ASSESSMENT DEPRESSION ASS ESSMENT [facility] Start: 01-01-2022 COVID-19 VACCINE (4 - Pfizer series) COVID-19 VACCINE (4 - Pfizer series) [facility] Start: 2020 SHINGRIX VACCINE (1 of 2) SHINGRIX VACCINE (1 of 2) [facility] Start: 2015 COLOGUARD (FIT-DNA) COLOGUARD (FIT-D NA) [facility] Start: 2015 Colonoscopy COLONOSCOPY [facility] Start: 2015 COLORECTAL CANCER SCREENING COLORECTAL CANCER SCREENING [facility] Start: [address] COLONOGRAPHY [facility] Start: 2015 DIABETES SCREEN DIABETES SCREEN [facility] Start: 2015 Diabetes Screening Diabetes Screenin g [facility] Start: 2015 FECAL OCCULT BLOOD FECAL OCCULT BLOO D [facility] Start: 2015 Lipid 1996 panel - S cristine or Plasma Lipid Screening [facility] Start: 2015 LIPID SCREEN LIPID SCREEN [facility] Start: 2015 SIGMOIDOSCOPY SIGMOIDOSCOPY [facility] Start: 2010 Mammography [facility] Start: 2000 HPV TESTING HPV TESTING [facility] Start: 1991 PAP TESTING PAP TESTING [facility] Start: 1989 Urine microalbumin profile [facility] Start: 1988 HEPATITIS C SCREENING HEPATITIS C SC REENING [facility] Start: 1988 HIV SCREENING HIV SCREENING [facility] Start: 1970 COVID-19 VACCINE (#1) COVID-19 VACCI NE (#1) [facility] Start: 1970 HEPATITIS B (1 of 3 - 3-dose series) HEPATITIS B (1 of 3 - 3-dose series) [facility] Start: 1970 Hepatitis B Vaccine (1 of 3 - 3-dose series) Hepatitis B Vaccine (1 of 3 - 3-dose series) [facility] End: 07-29-2024 EGD - THERAPEUTIC, EUS, OR TUBE INTERVENTIONS EGD - THERAPEUTIC, EUS, OR TUBE INTERVENTIONS Endoscopy Routine Gastroparesis 1 Occurrences starting 07/29/2023 until 07/29/[address] [facility] Work Phone: Comment on above: 1 Occurrences starti ng 07/29/2023 until 07/29/2024 End: 05-16-2024 Esophageal motility study w/interp&rpt MANOMETRY ESOPHAGEAL Endoscopy Routine Nausea 1 Occurrences starting 05/16/2023 until 05/16/[address] [facility] Work Phone: Comment on above: 1 Occurrences starti ng 05/16/2023 until 05/16/2024 Esophageal motility study w/interp&rpt MANOMETRY ESOPHAGEAL Endoscopy Routine Nausea 05/25/[address] [facility] Work Phone: End: 06-14-2024 Gastric emptying imaging study NM GASTRIC EMPTYING SOLID Radiology Routine Nausea 1 Occurrences starting 05/16/2023 until 06/14/[address] [facility] Work Phone: Comment on above: 1 Occurrences starti ng 05/16/2023 until 06/14/2024 Patient Education [facility] Work Phone: Patient referral [facility] Work Phone: SURGICAL PATHOLOGY [facility] Work Phone: Comment on above: Release Upon Orderin g for 1 Occurrences starting 07/14/2023, 1 completed [facility] Immunizations Immunization Date Immunization Notes Care Provider Jamal kelyl 06-09-2022 influenza virus vaccine, unspecified formulation Nurse 2 Work Phone: [facility] 03-18-2022 SARS-CoV-2 mRNA (oelzokzclsm-qbgq-yra jett) vaccine [facility] 11-06-2021 SARS-CoV-2 (COVID-19 ) mRNA BNT-162b2 vax [facility] 05-06-2021 influenza virus vaccine, unspecified formulation JHOANA MELGOZA [facility] 02-26-2021 SARS-CoV-2 (COVID-19 ) mRNA BNT-162b2 vax JHOANA MELGOZA [facility] 02-05-2021 SARS-CoV-2 (COVID-19 ) mRNA BNT-162b2 vax Anai REAGAN [facility] Comment on above: Result Comment: 2021: [id number] NEGATED: Highlighted row has not occurred!04-14-2022 influenza virus vaccine, unspecified formulation Monique Marquez [facility] Payers Date Payer Category Payer Unknown ROSA ISELAANTONY MARTINEZ SS PPO [id number] 2022-Present [phone] [address] [place] [address] PPO [id number] 2018 Private Health Insurance [id number] 2018 Private Health Insurance [facility] CHOICE PLUS [id number] 2018-Present [phone] [address] [place] [address] HMO [id number] 1970 Unknown [id number] 2.16.840.1.590605.3.579.2 .647 1970 Unknown [id number] 2.16.840.1.607321.3.579.2 .593 1970 Unknown [id number] 2.16.840.1.751988.3.579.2 .593 1970 Unknown [id number] 2.16.840.1.000381.3.579.2 .593 1970 Unknown [id number] 2.16.840.1.132470.3.579.2 .593 1970 Unknown [id number] 2.16.840.1.277431.3.579.2 .593 1970 Unknown [id number] 2.16.840.1.632563.3.579.2 .593 1970 Unknown [id number] 2.16.840.1.650490.3.579.2 .593 1970 Unknown [id number] 2.16.840.1.956017.3.579.2 .593 1970 Unknown [id number] 2.16.840.1.198445.3.579.2 .593 1970 Unknown [id number] 2.16.840.1.534656.3.579.2 .593 1970 Unknown [id number] 2.16.840.1.538781.3.579.2 .593 1970 Unknown [id number] 2.16.840.1.246908.3.579.2 .593 1970 Unknown [id number] 2.16.840.1.361164.3.579.2 .593 1970 Unknown [id number] 2.16.840.1.372893.3.579.2 .593 1970 Unknown [id number] 2.16.840.1.663260.3.579.2 .593 1970 Unknown [id number] 2.16.840.1.140104.3.579.2 .593 1970 Unknown [id number] 2.16.840.1.707494.3.579.2 .593 1970 Unknown [id number] 2.16.840.1.410211.3.579.2 .593 1970 Unknown [id number] 2.16.840.1.540040.3.579.2 .593 1970 Unknown [id number] 2.16.840.1.248193.3.579.2 .593 1970 Unknown [id number] 2.16.840.1.891178.3.579.2 .356 1970 Unknown [id number] 2.16.840.1.145838.3.579.2 .356 1970 Unknown [id number] 2.16.840.1.236829.3.579.2 .727 1970 Unknown [id number] 2.16.840.1.192170.3.579.2 .727 1970 Unknown [id number] 2.16.840.1.186293.3.579.2 .727 1970 Unknown [id number] 2.16.840.1.122424.3.579.2 .727 1970 Unknown [id number] 2.16.840.1.285569.3.579.2 .1286 1970 Unknown [id number] 2.16.840.1.349936.3.579.2 .1286 1970 Unknown [id number] 2.16.840.1.341679.3.579.2 .1286 1970 Unknown [id number] 2.16.840.1.723038.3.579.2 .1286 1959 Medicaid [id number] 1959 Self-pay [id number] 1959 Unknown [id number] 1959 Unknown [id number] Medicare Medicare [id number] Unknown [id number] 2.16.840.1.420244.3.579.2 .531 Unknown [id number] 2.16.840.1.223720.3.579.2 .531 Unknown [id number] 2.16.840.1.797733.3.579.2 .531 Unknown [id number] 2.16.840.1.801324.3.579.2 .531 Unknown [id number] 2.16.840.1.509793.3.579.2 .531 Worker's Compensation Industrial Self Ins [facility] [id number] Social History Date Type Detail Facility Start: 12-03-2021 End: 05-06-2023 Tobacco smoking status Ex-smoker (finding) [facility] Start: 08-12-2020 End: 05-06-2023 Sex Assigned At Female [facility] Tobacco smoking status Never [facility] Start: 1970 Sex Assigned At Female [facility] End: 09-05-2011 History of tobacco use Current smoker [facility] Work Phone: End: 09-05-2011 History of tobacco use Cigarette Smoker [facility] Work Phone: Start: 04-28-2018 End: 05-06-2023 Tobacco use and exposure Smokeless tobacco non-user [facility] Work Phone: Start: 04-28-2018 End: 05-06-2023 Alcohol intake Current drinker of alcohol (finding) [facility] Start: 08-12-2020 End: 05-06-2023 History of Social function [facility] Start: 04-28-2018 End: 05-06-2023 Tobacco Comment still smokes [facility] Start: 04-28-2018 Alcohol Comment social [facility] Start: 1970 Sex Assigned At Not on file [facility] Start: 07-14-2023 Alcohol intake Ex-drinker (finding) [facility] Functional Status Date Assessment Result Facility 02-19-2023 Functional Status N/A [facility] 07-22-2022 Functional Status N/A [facility] 04-14-2022 Functional Status N/A [facility] Clinical Notes 12-02-2021 to 08-25-2023 Evelyn Black, VICKY - 07/29/2023 11:17 AM ESTPatient InstructionsTelephone Encounter - Evelyn Black RN - 07/22/2023 3:02 PM ESTSommer Melissa, RD - 07/22/2023 1:15 PM EST Note Date & Type Note Facility 08-25-2023 Note HNO ID: [id number] Author: Ellis Mayberry DO Service: ? Author [...] August 25, 2023 TIME: 2:59 PM CSN: [id number] [facility] 08-25-2023 Note Q3 Patient Name: Constantino Cardoso Procedure Date: 08/25/2023 2:38 PM Date of : 1970 Admit Type: Outpatient Age: 53 Gender: Female Note Status: Finalized Attending MD: Marques Bradley MD, [id number] Procedure: Upper GI endoscopy Indications: Gastroparesis- for [...] the patient. Procedure Code(s): --- Professional --- 34669 Diagnosis Code(s): --- Professional --- K44.9 Z98.890 CPT copyright 2020 [employer] [place] [employer]. All rights reserved. Attending Participation: I personally performed the entire procedure. Scope In: 2:59:10 PM Scope Out: 3:37:20 PM MD Marques Rainey MD 08/25/2023 3:41:00 PM This report has been signed electronically by Marques Bradley MD Number of Addenda: 0 Note Initiated On: 08/25/2023 2:38 PM [facility] 07-29-2023 Note HNO ID: [id number] Author: Evelyn Black RN Service: ? Author Type: Registered Nurse Type: Progress Notes Filed: 07/29/2023 11:18 AM Note Text: e [facility] 07-29-2023 History of Present illness Narrative e documented in this encounter [facility] 07-22-[address] - [...] High Protein, Atkins, Boost Glucose Control, Owyn, Cassatt Breakfast Essentials Light Start mixed with Fairlife fat free or 1% milk. -Check www.bariatricfusion.com or www.unKids Movie.com for additional options. Take small bites, eat slowly, chew food well, and always eat protein first. Separate eating and drinking by 30 min before and after. Aim for >64 oz water/day. Take small sips and avoid straws. Liquids should be sugar-free, no calories, no carbonation, no caffeine. Protein juarez (adarbeh0e, Isopure, Gatorade protein), electrolyte drinks (Gatorade or Powerade zero, sugar free liquid IV or Drip Drop), sugar free jello and sugar free popsicles are also acceptable. Nutrition Monitoring & Evaluation: increase PO intake >75% of estimated needs, weight check and patient update Need for Follow up: based on surgery status documented in this encounter [facility] 07-22-2023 Note HNO ID: [id number] Author: Melissa Montalvo RD Service: ? Author Type: Registered Dietitian Type: Progress Notes Filed: 07/22/2023 4:06 PM Note Text: [facility] Nutrition Therapy: Virtual Consult - Initial Assessment I have communicated my name and active licensure. The patient?s identity and physical location were verified at the time of this visit. Either the patient or their legal claims customer service representative has been informed of the risks [...] High Protein, Atkins, Boost Glucose Control, Owyn, Cassatt Breakfast Essentials Light Start mixed with Fairlife fat free or 1% milk. -Check www.bariatricfusion.com or www.Tuolar.com.com for additional options. Take small bites, eat slowly, chew food well, and always eat protein first. Separate eating and drinking by 30 min before and after. Aim for >64 oz water/day. Take small sips and avoid straws. Liquids should be sugar-free, no calories, no carbonation, no caffeine. 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 Harvey body weight: 159 lbs. 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 [facility] 07-22-2023 Miscellaneous Notes BMI SPECIALTY CARE COORDINATION TELEPHONE ENCOUNTER Pt was seen in clinic and an EGD was ordered and completed. Recommendation was a GPOEM. Will consult with surgeon next week regarding next POC for pt. Pt VU. documented in this encounter [facility] 07-22-2023 History of Present illness Narrative [facility] Nutrition Therapy: Virtual Consult - Initial Assessment I have communicated my name and active licensure. The patient s identity and physical location were verified at the time of this visit. Either the patient or their legal claims customer service representative has been informed of the risks [...] High Protein, Atkins, Boost Glucose Control, Owyn, Cassatt Breakfast Essentials Light Start mixed with Fairlife fat free or 1% milk. -Check www.bariatricfusion.com or www.unRecruiting Sports Networkry.com for additional options. Take small bites, eat slowly, chew food well, and always eat protein first. Separate eating and drinking by 30 min before and after. Aim for >64 oz water/day. Take small sips and avoid straws. Liquids should be sugar-free, no calories, no carbonation, no caffeine. 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 Harvey body weight: 159 lbs. 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 Procedure Code(s): --- Professional --- 03177 Diagnosis Code(s): --- Professional --- K44.9 K31.89 Z98.890 R10.13 CPT copyright 2020 [employer] [place] [employer]. All rights reserved. Attending Participation: I personally performed the entire procedure. Scope In: 10:40:19 AM Scope Out: 10:50:37 AM MD Marques Rainey MD 07/14/2023 10:53:09 AM This report has been signed electronically by Marques Bradley MD Number of Addenda: 0 Note Initiated On: 07/14/2023 10:24 AM [facility] 07-14-2023 Nurse Note 1121: Dr. Mehrdad [...] Department: GASTROENTEROLOGY documented in this encounter [facility] 07-13-2023 Note HNO ID: [id number] Author: Brennen Shaw, PhD Service: ? Author Type: Physician Type: Progress Notes Filed: 07/19/2023 10:07 AM Note Text: [facility] BARIATRIC SURGERY BEHAVIORAL HEALTH EVALUATION DATE OF SERVICE: July 13, 2023 TIME OF SERVICE: 2:10 PM-3:29 PM COST CENTER: O CPT CODE: - 98051 Brief Emotional/Behavioral Assessment with scoring/documentation - [id number] Virtual Psych Diagnostic Eval BILLING CODE: ENDO PSYL MAIN 49713/Marco DATE OF FIRST SERVICE THIS CYCLE: July 13, 2023 SESSION #: 1 BMI Surgical Pathway Visit type: Bariatric Surgeon Visit I have communicated my name and active licensure. The patient's identity and physical location were verified at the time of this visit. Either the patient or their legal claims customer service representative has been informed of the risks and benefits of -- and alternatives to -- treatment through a remote evaluation and consents to proceed with the evaluation remotely. [facility] sciencebite IDENTIFYING INFORMATION: Ms. Constantino Cardoso is a [...] other people who have undergone the procedure (long-term Specific areas of understanding that should be [...] the binge episod (more content not included)... [facility] 05-27-2023 Miscellaneous Notes BMI SPECIALTY CARE COORDINATION TELEPHONE ENCOUNTER Pt contacted today regarding testing ordered when she had a consult with Dr Bradley. Manometry was normal and her GES was severely delayed. Reviewed results and will discuss with if POP is the next plan of care. Will update pt. Pt agreed with plan. documented in this encounter [facility] 05-26-2023 Note HNO ID: [id number] Author: Nabil Bell RT(R) Service: Nuclear Medicine [...] 715 PATIENT DISCHARGED TO: Ambulatory patient, left [place] department area. A Diagnostic radioactive procedure has taken place, with no further precautions necessary other than routine body substance precautions. More information regarding radiation safety can be found using this link: [email or web address] SIGNATURE: RT Charmaine(R) PATIENT NAME: Constantino Cardoso DATE: May 26, 2023 TIME: 7:17 AM PAGER/CONTACT #: [facility] 05-25-2023 Note HNO ID: [id number] Author: Pedro Gonzalez LPN Service: ? Author Type: LICENSED NURSE Type: Progress Notes Filed: 05/25/2023 4:15 PM Note Text: Name: Constantino Cardoso CCF#: [id number] Date: 05/25/2023 ESOPHAGEAL MANOMETRY TEST Indication: Nausea [...] the test without difficulty. .Pedro Gonzalez LPN [facility] 05-25-2023 History of Present illness Narrative Name: Constantino Cardoso CCF#: [id number] Date: 05/25/2023 ESOPHAGEAL MANOMETRY TEST Indication: Nausea [...] Gonzalez LPN documented in this encounter [facility] 05-16-2023 Miscellaneous Notes BMI SPECIALTY CARE [...] gastric bypass. documented in this encounter [facility] 05-06-2023 Note HNO ID: [id number] Author: Marques Bradley MD Service: ? Author [...] for internal providers or letter via the [employer] Postal Service for external providers. Chief Complaint: [...] Bradley MD Date: 05/12/2023 Time: 8:15 AM [facility] 05-02-2023 Miscellaneous Notes [facility] SPECIALTY CARE COORDINATION TELEPHONE ENCOUNTER Chief complaint & duration dysphagia. Type of procedure: hernia repair hiatal with Dr. MORTENSEN in [place] February of 2019. Sending OP notes Nursing assessment (subjective/objective) . pain in chest area and getting worse Went to [facility] ED March 2023 who told her she needed a stent in her heart..but her c/o were difficulty swallowing and sent pt home and referred her to [facility] and was there in the hospital for [...] records obtained documented in this encounter [facility] 04-26-2023 Miscellaneous Notes [facility] SPECIALTY CARE COORDINATION TELEPHONE ENCOUNTER Second attempt to contact this pt. Pt has upcoming information, and unable to complete any chart prep, history, symptoms, testing etc. LVM and call back number. documented in this encounter [facility] 04-21-2023 Evaluation note Encounter Date Diagnosis Assessment Notes Apr, Esophageal dysmotility (ICD-10 - K22.4) Apr, Esophageal spasm (ICD-10 - K22.4) Apr, Nausea & vomiting (ICD-10 - R11.2) Alec reports that she still has nausea but no vomiting Patient reports that she is to see Dr. Strong at [facility] Patient is to start dicyclomine 20 mg 4 times daily sent to pharm today RTO 6 weeks Apr, Dysphagia (ICD-10 - R13.10) [employer] Other 08-14-2023 Miscellaneous Notes* Telephone Encounter - Evelyn Black RN - 04/18/2023 2:13 PM EDT BMI SPECIALTY CARE COORDINATION TELEPHONE ENCOUNTER Contacted pt regarding a referral from Dr Martinez's office. LVM and call back number. [facility] Miscellaneous Notes* Telephone Encounter - Yancy Lopez - 04/07/2023 1:15 PM EDT Referral [facility]'d [facility] Evaluation + Plan note Extracted from: [...] # 20 tab(s), Refills(s) 0, Pharmacy: [facility]/pharmacy #[id number], 170, cm, 02/19/23 0:56:00 EDT, Height/Length Dosing, 90.2, kg, 02/19/23 0:56:00 EDT, Weight Dosing XR Elbow 3+ Views Right XR Wrist 3+ Views Right [facility]2023 Hospital Discharge instructions Patient Education 02/19/2023 01:41:18 [...] are safe for you. General instructions Take ajry-dhs-umrhyls and prescription medicines only as told by [...] provider. Document Revised: 12/29/2020 Document Reviewed: 12/29/2020 [employer] Patient Education 2022 [employer]. Follow Up Care 02/19/2023 00:51:16 With:JUDI YOUSSEF Address: [facility] [place] [address]- [phone] Business (1) When:02/22/2023 Comments:Take the pain medication as prescribed as needed for pain. Please follow-up with your primary care doctor in the next 2 to 3 days for further evaluation management. Please return to the ED for any new or worsening symptoms or [facility]08-10-2022 Hospital Discharge instructions Patient Education 04/14/2022 15:31:37 [...] water added (diluted fruit juice). Eat bland, dycm-ex-culrxu foods in small amounts as you are able. These foods include bananas, applesauce, rice, lean meats, toast, and crackers. Avoid fluids that contain a lot of sugar or caffeine, such as energy drinks, sports drinks, and soda. Avoid alcohol. Avoid spicy or fatty foods. General instructions Take anew-fyg-kwtydin and prescription medicines only as told by your health care provider. Drink enough fluid to keep your urine pale yellow. Wash your hands often using soap and water. If soap and water are not available, use hand embroiderer hand. Make sure that all people in your [...] eating and drinking to prevent dehydration. Take vvib-fqq-rolapyi and prescription medicines only as told by [...] 08/22/2006 Document Revised: 12/14/2019 Document Reviewed: 01/30/2019 [employer] Patient Education 2019 [employer]. Follow Up Care 01/28/2022 13:58:23 With:Monique Marquez CNP Address: When:[address] [facility] 05-26-2022 Hospital Discharge instructions [...] drinks. ?Tomatoes and foods made with tomatoes. ?[place] or spicy foods. ?Chocolate and peppermint. Do not drink alcohol. General instructions Take kwgq-deh-gnvhrkn and prescription medicines only as told by [...] 11/11/2004 Document Revised: 12/18/2018 Document Reviewed: 12/18/2018 [employer] Patient Education 2020 [employer]. Follow Up Care 01/13/2022 12:36:01 With:Monique Marquez CNP Address: When:[address] [facility] 05-09-2022 Hospital Discharge instructions Patient Education 01/11/2022 09:56:58 Endoscopy, Care After Procedure [facility] (CUST[facility]) Endoscopy Care After Procedure Please read the instructions outlined below and refer to this sheet in the next few weeks. These discharge instructions provide you with general information on caring for [facility] Your doctor may also give you [...] blood. Document Released: 04/05/2005 Document Re-Released: 02/13/2007 [email or web address] Patient Information 2010 [employer]. 01/11/2022 09:56:58 Pearce's Esophagus Pearce's Esophagus Pearce's [...] drinks. ?Tomatoes and foods made with tomatoes. ?[place] or spicy foods. ?Chocolate and peppermint. Do not drink alcohol. General instructions Take ccyw-lmw-drxplzf and prescription medicines only as told by [...] 11/11/2004 Document Revised: 12/18/2018 Document Reviewed: 12/18/2018 [employer] Patient Education 2020 [employer]. Follow Up Care 12/03/2021 15:32:26 With:Anai REAGAN Address: [address] [place] [address]. [address] [place] [address] Business (1) When:1 to 2 weeks Comments:Call for any problems. [facility]03-30-2022 Hospital Discharge instructions Follow Up Care 12/02/2021 10:32:32 With:JHOANA MELGOZA PA-C, URL Address: [address] [place] [address] When: Unknown [facility] Evaluation + Plan note Future Appointments Appointment Date:01/11/2022 09:40:00 AM Scheduled Provider: Location:[facility] Services Appointment Type:Surgery FT [facility] Evaluation + Plan note Future Appointments Appointment Date:04/14/2022 03:00:00 PM Scheduled Provider:Monique Marquez CNP Location:[facility] Digestive [facility] Appointment Type:[facility] Follow Up Future Scheduled Tests Radiology* NM Gastric Emptying Study 01/28/22 [facility] Evaluation + Plan note Future Appointments Appointment Date:04/14/2022 03:00:00 PM Scheduled Provider:Monique Marquez CNP Location:[facility] Appointment Type:[facility] Future Appointments Appointment Date:04/20/2022 12:00:00 PM Scheduled Provider: [facility] Type:US Abdominal/Pelvis () Appointment Date:06/02/2022 09:45:00 AM Scheduled Provider:Anai REAGAN MD Location:[facility] Digestive [facility] Appointment Type:[facility] Follow Up Future Scheduled Tests Laboratory* Fecal WBC Lactoferrin 04/14/22 * Giardia lamblia, Direct Detection EIA 04/14/22 * O & P Exam, Routine 04/14/22 * Clostridium difficile by PCR 04/14/22 * Enteric Panel by PCR 04/14/22 * CBC w/ Auto Diff 04/14/22 * Comprehensive Metabolic Panel 04/14/22 Radiology* US Abdomen Complete 04/20/22 [facility] Evaluation + Plan note Future Appointments Appointment Date:06/02/2022 09:45:00 AM Scheduled Provider:Anai REAGAN MD Location:[facility] Appointment Type:[facility] Follow Up Diagnostic Tests Pending * O & P Exam, Routine 04/29/22 * Giardia lamblia, Direct Detection EIA 04/29/22 [facility] noteNo assessment information available [facility] Work Phone: Evaluation noteNo InformationNortSt. Christopher's [facility] for [facility] [employer] Other Evaluation note* Diagnosis Nausea- Primary Nausea alone Dysphagia, unspecified type documented in this encounter [facility] note* Diagnosis Nausea Nausea alone documented in this encounter [facility] note* Diagnosis Dysphagia, unspecified type Gastroparesis History of Ramiro fundoplication Personal history of surgery to other organs documented in this encounter [facility] note* Diagnosis Gastroparesis- Primary Malnutrition of moderate degree (HCC) Malnutrition of moderate degree Gastro-esophageal reflux disease without esophagitis Esophageal reflux Overweight (BMI 25.0-29.9) Overweight Dietary counseling and surveillance Dietary surveillance and counseling documented in this encounter [facility] note* Diagnosis Gastroparesis- Primary documented in this encounter [facility] general Narrative - Reported* Type Description Date Medical History mitral valve prolapse Medical History gallstones Medical History Acid reflux Medical History Hiatal Hernia Medical History headache Surgical History hysterectomy Surgical History cholecystectomy Surgical History hiatal hernia repair Hospitalization History see above Hospitalization History kindey infections hospit alized x3 [facility] [employer] Other Hospital course Narrative No data available for this section [facility] Discharge instructions No data available for this section [facility] Additional Instructions Follow-up with your primary care doctor Return to ED if develop worsening symptoms or concerns[facility] Work Phone: Hospital Discharge instructions Additional Instructions If your symptoms return/worsen or you develop any further concerns or symptoms please see your doctor or return to the emergency department immediately. Please be sure to continue follow-up with the fan engine engineer and with your scheduled EGD and further testing.[facility] Work Phone: Progress note No data available for this section [facility] for referral (narrative)* Diagnostic Procedure Only (Routine) - Authorized Specialty Diagnoses / Procedures [facility] Referred To Contact MOLECULAR & FUNCTIONAL IMAGING Diagnoses Nausea Procedures NM GASTRIC EMPTYING SOLID GASTRIC EMPTYING STUDY Marques Bradley MD [address] [place] [address] Molecular & Functional Imaging [address] [place] [address] Referral ID Status Reason Start Date Expiration Date Visits Requested Visits Authorized [id number] Authorized Auto-Generat ed Referral 05/16/2023 06/14/2024 1 1 * Outpatient Procedure (Routine) - Authorized Specialty Diagnoses / Procedures Referred By [facility] Referred To Contact [facility] Diagnoses Nausea Procedures MANOMETRY ESOPHAGEAL ESOPHAGEAL MOTILITY STUDY W/INTERP&RPT Marques Bradley MD [address] [place] [address] [facility] [address] [place] [address] Referral ID Status Reason Start Date Expiration Date Visits Requested Visits Authorized [id number] Authorized Auto-Generat ed Referral 05/16/2023 05/16/2024 1 1 [facility] for referral (narrative)* Outpatient Procedure (Routine) - Closed Specialty Diagnoses / Procedures Referred By [facility] Referred To Contact [facility] Diagnoses Dysphagia, unspecified type Gastroparesis History of Ramiro fundoplication Procedures EGD - THERAPEUTIC, EUS, OR TUBE INTERVENTIONS ESOPHAGOGASTRODUODENOSCOPY TRANSORAL DIAGNOSTIC STOMACH SURGERY PROCEDURE UNLISTED Marques Bradley MD [address] [place] [address] [facility] [place] [address] [place] [address] Referral ID Status Reason Start Date Expiration Date V isits Requested Visits Authorized [id number] Closed Auto-Generate d Referral 05/27/2023 05/27/2024 1 1 [facility] for referral (narrative)* Outpatient Procedure (Routine) - Authorized Specialty Diagnoses / Procedures Referred By Eileen mueller Referred To Contact [facility] Diagnoses Gastroparesis Procedures EGD - THERAPEUTIC, EUS, OR TUBE INTERVENTIONS ESOPHAGOGASTRODUODENOSC OPY TRANSORAL DIAGNOSTIC STOMACH SURGERY PROCEDURE UNLISTED Marques Bradley MD [address] [place] [address] [address] Referral ID Status Reason Start Date Expiration Date Visits Requested Visits Authorized [id number] Authorized Auto-Generat ed Referral 3 07/29/2024 1 1 [facility] for visit Narrative* Outpatient Procedure (Routine) - Closed Specialty Diagnoses / Procedures Referred By Eileen mueller Referred To Contact [facility] Diagnoses Dysphagia, unspecified type Gastroparesis History of Ramiro fundoplication Procedures EGD - THERAPEUTIC, EUS, OR TUBE INTERVENTIONS ESOPHAGOGASTRODUODENOSCOPY TRANSORAL DIAGNOSTIC STOMACH SURGERY PROCEDURE UNLISTED Marques Bradley MD [address] [place] [address] [address] Referral ID Status Reason Start Date Expiration Date V isits Requested Visits Authorized [id number] Closed Auto-Generate d Referral 05/27/2023 05/27/2024 1 1 [facility] Summary Purpose Family History No Family [...] 23 10:23am Hospital Course Note MR#: [id number] [facility] Pt. Name: Constantino Cardoso Admitted: [...] transferred to [facility] from [facility] with acute abdominal pain. The pain has started on Tuesday while at work. 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 The pain feels similar to when she was here in April during her stay. During that time, she was told there was nothing left for Dr. Mortensen to do and she has been following up with GI specialist in [place]. She is actually due to have an EGD on August 22, 2019. She has been having nausea, but no vomit (more content not included)... Chief Complaint and Reason for Visit Chief Complaint stomach pain/hx marium Chief Complaint stomach pain/hx marium R10.9 K59.00 Chief Complaint abd pain stomach pian/vomiting Additional Source Comments INFORMATION SOURCE (unrecogn ized section and content) DATE CREATED AUTHOR 06/03/2020 [facility] DATE CREATED AUTHOR AUTHOR'S ORGANIZ ATION 01/17/2023 [facility] DATE CREATED AUTHOR AUTHOR'S ORGANIZ ATION 04/02/2023 [facility] DATE CREATED AUTHOR AUTHOR'S ORGANIZ ATION 05/16/2023 [facility] DATE CREATED AUTHOR AUTHOR'S ORGANIZ ATION 06/11/2023 [facility] DATE CREATED AUTHOR AUTHOR'S ORGANIZ ATION 08/26/2023 [facility] DATE CREATED AUTHOR AUTHOR'S ORGANIZ ATION 12/03/2023 [facility] Care Team (unrecognized sect ion and content) Team Status: Inactive Member Role Status Dates DONI Stovall Primary Care Provider Active Conner Griffith DO Emergency Provider Active Team Status: Active Member Role Status Dates DONI Stovall Primary Care Provider Active Team Status: Inactive Member Role Status Dates Jennie Ayon MD Attending Provider Active Judi Youssef NP-C Primary Care Provider Active Team Status: Inactive Member Role Status Dates Judi Youssef NP-C Primary Care Provider Active Pete Thakkar DO Emergency Provider Active 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 Specialty Start Date End Date Joel Alejandra PCP - General Family Medicine 04/26/18 Rafa Rangel [address] [place] [phone] Referring General Surgery 04/26/18 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 Specialty Start Date End Date Joel Alejandra PCP - General Family Medicine 04/26/18 Rafa Rangel [address] [place] [address] Referring General Surgery 04/26/18 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 Specialty Start Date End Date Joel Alejandra PCP - General Family Medicine 04/26/18 Rafa Rangel [address] [place] [phone] Referring General Surgery 04/26/18 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 Specialty Start Date End Date DomenicoJoel blanco PCP - General Family Medicine 04/26/18 Rafa Rangel [address] [place] [address] Referring General Surgery 04/26/18 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 Specialty Start Date End Date Joel Alejandra PCP - General Family Medicine 04/26/18 Rafa Rangel [address] [facility] [address] [place] [address] Referring General Surgery 04/26/18 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 Specialty Start Date End Date DomenicoJoel blanco PCP - General Family Medicine 04/26/18 Rafa Rangel [address] [place] [address] [address] [place] [address] Referring General Surgery 04/26/18 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 Specialty Start Date End Date Ny Joel Onel PCP - General Family Medicine 04/26/18 Rafa Rangel [address] [place] [address] [address] [place] [address] Referring General Surgery 04/26/18 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 Specialty Start Date End Date DomenicobellaJoel PCP - General Family Medicine 04/26/18 Rafa Rangel [address] [place] [address] [address] [place] [address] Referring General Surgery 04/26/18 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 Specialty Start Date End Date DomenicoJoel blanco Onel PCP - General Family Medicine 04/26/18 Rafa Rangel [address] [place] [phone] Referring General Surgery 04/26/18 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 Specialty Start Date End Date Joel Alejandra PCP - General Family Medicine 04/26/[address] [place] [phone] Referring General Surgery 04/26/18 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 Specialty Start Date End Date Joel Alejandra PCP - General Family Medicine 04/26/[address] [place] [phone] Referring General Surgery 04/26/18 Goals (unrecognized section and content) Goals may be documented in a n alternate section REASON FOR VISIT (unrecogniz ed section and content) Reason Comments 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 - Other Reason Onset Date Comments Procedure 05/25/2023 Manometry Esopha geal Specialty Diagnoses / Procedures Referred By Contac t Referred To Contact [facility] Diagnoses Nausea Procedures MANOMETRY ESOPHAGEAL ESOPHAGEAL MOTILITY STUDY W/INTERP&RPT Marques Bradley MD [address] [place] [address] [facility] [place] [address] [place] [address] Referral ID Status Reason Start Date Expiration Date V isits Requested Visits Authorized [id number] Closed Auto-Generate d Referral 05/16/2023 05/16/2024 1 1 Reason Comments Results Reason Comments Patient Education Assessment Source Comments (unrecognize d section and content) In the event this informatio n is protected by the Federal Confidentiality of Alcohol and Drug Abuse Patient Records regulations: The Federal rules restrict any use of the information to criminally investigate or prosecute any alcohol or drug abuse patient.[facility] the event this information is protected by the Federal Confidentiality of Alcohol and Drug Abuse Patient Records regulations: The Federal rules restrict any use of the information to criminally investigate or prosecute any alcohol or drug abuse patient.[facility] the event this information is protected by the Federal Confidentiality of Alcohol and Drug Abuse Patient Records regulations: The Federal rules restrict any use of the information to criminally investigate or prosecute any alcohol or drug abuse patient.[facility] the event this information is protected by the Federal Confidentiality of Alcohol and Drug Abuse Patient Records regulations: The Federal rules restrict any use of the information to criminally investigate or prosecute any alcohol or drug abuse patient.[facility] the event this information is protected by the Federal Confidentiality of Alcohol and Drug Abuse Patient Records regulations: The Federal rules restrict any use of the information to criminally investigate or prosecute any alcohol or drug abuse patient.[facility] the event this information is protected by the Federal Confidentiality of Alcohol and Drug Abuse Patient Records regulations: The Federal rules restrict any use of the information to criminally investigate or prosecute any alcohol or drug abuse patient.[facility] Hospital[facility] the event this information is protected by the Federal Confidentiality of Alcohol and Drug Abuse Patient Records regulations: The Federal rules restrict any use of the information to criminally investigate or prosecute any alcohol or drug abuse patient.[facility] the event this information is protected by the Federal Confidentiality of Alcohol and Drug Abuse Patient Records regulations: The Federal rules restrict any use of the information to criminally investigate or prosecute any alcohol or drug abuse patient.[facility] Hospital[facility] the event this information is protected by the Federal Confidentiality of Alcohol and Drug Abuse Patient Records regulations: The Federal rules restrict any use of the information to criminally investigate or prosecute any alcohol or drug abuse patient.[facility] the event this information is protected by the Federal Confidentiality of Alcohol and Drug Abuse Patient Records regulations: The Federal rules restrict any use of the information to criminally investigate or prosecute any alcohol or drug abuse patient.[facility] Hospital[facility] the event this information is protected by the Federal Confidentiality of Alcohol and Drug Abuse Patient Records regulations: The Federal rules restrict any use of the information to criminally investigate or prosecute any alcohol or drug abuse patient.[facility] Hospital[facility] the event this information is protected by the Federal Confidentiality of Alcohol and Drug Abuse Patient Records regulations: The Federal rules restrict any use of the information to criminally investigate or prosecute any alcohol or drug abuse patient.[facility] FOR RECORDS PERTAINING TO PATIENTS WHO [...] BE BASED ON THE PRIMARY CLINICAL RECORDS. [facility] Center[facility]. provides no warranty or guarantee of the accuracy or completeness of information in this document.
[2024-01-24 13:41] LABS: Bilirubin Urine NEGATIVE (NEGATIVE); Blood Urine NEGATIVE (NEGATIVE); Clarity Urine CLEAR (CLEAR); Color Urine LT. YELLOW (YELLOW); Glucose Urine UA NEGATIVE (NEGATIVE); Ketones Urine NEGATIVE (NEGATIVE); Leukocyte Esterase Urine TRACE (NEGATIVE); Nitrite Urine NEGATIVE (NEGATIVE); Protein Urine NEGATIVE (NEG/TRACE); Urobilinogen Urine 0.2 EU/dL (0.2-1.0); pH Urine 6.5 (5.0-9.0)
[2024-01-24 14:18] LABS: Bacteria Urine NONE SEEN #/HPF (NONE SEEN); Cast Seen? NONE SEEN #/LPF (NONE SEEN); Crystals Seen? None Seen #/HPF (None Seen); Mucus Urine NONE SEEN (NONE SEEN); RBC Urine 0-2 #/HPF (0-2); Squamous Epithelial Cell Urine FEW #/LPF (NONE/RARE); WBC Urine 0-2 #/HPF (NONE SEEN)
== END 2024-01-24 13:11 | disposition home or self-care (01) ==
LOC: LAB 13:10
PROVIDERS: PCP Nurse Practitioner Family; Visit Provider Nurse Practitioner Family
DX: N39.0 Urinary tract infection, site not specified (principal)
CPT/HCPCS: 81001; 87086

== ENCOUNTER 2024-03-13 06:39 | Outpatient (OUT) | payer BC, SELFPAY ==
--- NOTE | 2024-03-13 09:02 | MM_ITS ---
Patient Name: CONSTANTINO CARDOSO MR#: [id number] : 1970 Exam Date: 03/13/2024 Ordering Doctor: STEPHANIE YOUSSEF CNP RADIOLOGY REPORT PROCEDURE: MM TOMOSYNTHESIS SCREENING BI COMPARISON: MG MAMM SCREEN 3D [place] CAD, 11/18/2021. MG MAMM SCREEN 3D [place] CAD, 11/30/2022. INDICATIONS: Screening Calculator Name NCI Breast Cancer Risk Assessment Tool 5 Year Breast Cancer Risk 0.90% Lifetime Breast Cancer Risk 7.30% Personal Breast Cancer No Personal Ovarian Cancer No Treatments None Family Cancers Aunt-maternal with breast cancer at age ~55; Cousin-maternal with ovarian cancer at age 17; Father with unknown cancer at age 87; Grandfather-maternal with colon cancer at age ~84. LOCATION: [facility] BREAST COMPOSITION: There are scattered areas of fibroglandular density. FINDINGS: DIAGNOSTIC CATEGORY 1--NEGATIVE. NO CHANGE FROM COMPARISON ASSESSMENT. RIGHT BREAST: No significant suspicious finding. LEFT BREAST: No significant suspicious finding. RECOMMENDATIONS: ROUTINE MAMMOGRAM AND CLINICAL EVALUATION IN 12 MONTHS. PLEASE NOTE: A NORMAL MAMMOGRAM DOES NOT EXCLUDE THE POSSIBILITY OF BREAST CANCER. A CLINICALLY SUSPICIOUS PALPABLE LUMP SHOULD BE BIOPSIED. Dictated by: Isaac Corrigan MD on 03/13/2024 at 09:57 Approved by: Isaac Corrigan MD on 03/13/2024 at 10:22
== END 2024-03-13 06:40 | disposition home or self-care (01) ==
LOC: MAMMO 06:39
PROVIDERS: PCP Nurse Practitioner Family; Visit Provider Nurse Practitioner Family
DX: Z12.31 Encounter for screening mammogram for malignant neoplasm of breast (principal); Z80.3 Family history of malignant neoplasm of breast; Z80.41 Family history of malignant neoplasm of ovary; Z80.0 Family history of malignant neoplasm of digestive organs; Z80.9 Family history of malignant neoplasm, unspecified
CPT/HCPCS: 77063; 77067

== ENCOUNTER 2024-03-13 06:40 | Outpatient (OUT) | payer BC, SELFPAY ==
--- NOTE | 2024-03-13 06:54 | CA_ITS ---
Patient Name: CONSTANTINO CARDOSO MR#: [id number] : 1970 Exam Date: 03/13/2024 Ordering Doctor: EDISON KINCAID ECHOCARDIOGRAM REPORT PROCEDURE: CA ECHO DOPPLER COMPLETE INDICATIONS: CA COMPARISON: None. DESCRIPTION: COMPLETE ECHOCARDIOGRAM Real-time transthoracic echocardiography with 2D, M-mode, spectral and color flow Doppler performed. QUALITY: Technical quality was good. LEFT VENTRICLE: Normal chamber size. Normal left ventricular wall thickness. LV EF: Global left ventricular systolic function is normal. Calculated left ventricular ejection fraction is 66%. No wall motion abnormalities. DIASTOLIC: Normal diastolic function. ATRIAL SEPTUM: Inadequately seen. LEFT ATRIUM: Normal chamber size. RIGHT ATRIUM: Normal chamber size. RIGHT VENTRICLE: Normal chamber size. Normal right ventricular systolic function. TRICUSPID VALVE: Normal mobility and thickness. No stenosis with mild regurgitation. Mild pulmonary hypertension. RVSP 44mmHg MITRAL VALVE: Normal mobility and thickness. No evidence of mitral valve stenosis. There is no mitral annular calcification. Trivial mitral regurgitation. AORTIC VALVE: Normal trileaflet appearance. No visible sclerosis. Normal leaflet mobility. No evidence of aortic valve stenosis. No aortic regurgitation. AORTIC ROOT: Normal diameter and appearance. PULMONIC VALVE: Normal thickness and mobility. No stenosis. Mild regurgitation. PERICARDIUM: Minimal pericardial effusion. IVC: Collapses with inspirations. Mild dilatation measuring 2.3cm. CONCLUSION: 1. Global left ventricular systolic function is normal; visually estimated ejection fraction is 60 to 65% 2. Normal right ventricular size and systolic function 3. Normal diastolic function 4. The left atrium is normal in size 5. Mild tricuspid regurgitation 6. Mildly elevated right ventricular systolic pressure; RVSP 54 mmHg 7. Mild pulmonic regurgitation 8. Minimal pericardial effusion Adult Echocardiography Procedure Report Left Ventricle LVEDD (3.7 - 5.6 cm): 4.47 cm LVESD (2.2 - 4.0 cm): 2.72 cm LVIVS thickness (0.6 - 1.2 cm): 0.96 cm LVPW thickness (0.5 - 1.0 cm): 0.95 cm e': 0.10 m/s E - e': 8.31 LVOT Max Gradient: 1.98 mm[Hg] LVOT Area (cm2): 0.70 m/s Peak Velocity (LVOT): 0.70 m/s Mean Velocity (LVOT): 0.48 m/s LVOT Diameter 2.28 cm Left Ventricular Ejection Fraction: 65.86 % Left Atrium LA Volume Index (2D A2C): 37.14 ml/m2 Left Atrium Systolic Dimension: 3.36 cm Mitral Valve MV E to A Ratio: 1.67 MV Max Gradient: MV Mean Gradient: Mitral Valve A-Wave Peak Velocity: 0.48 m/s Mitral Valve E-Wave Peak Velocity: 0.79 m/s Cardiovascular Orifice Area: Right Ventricle RV Internal Diastolic Dimension: 3.04 cm Aorta AO Root Diam: 3.22 cm Ascending Ao Diam: 3.06 cm Aortic Valve AoV Area (Peak Isidoro): 2.83 cm2, 2.83 cm2 AoV Area (VTI): 2.89 cm2, 2.89 cm2 Deceleration [place]: Pressure Half-Time: Peak Velocity(Antegrade Flow): 1.01 m/s Peak Gradient(Antegrade Flow): 4.09 mm[Hg] Mean Velocity(Antegrade Flow): 0.69 m/s Mean Gradient(Antegrade Flow): 2.17 mm[Hg] Velocity Time Integral: 28.96 cm Tricuspid Valve Peak Velocity (Regurgitant Flow): 2.35 m/s, 2.84 m/s, 2.98 m/s Peak Velocity: Pulmonic Valve Mean Gradient: Mean Velocity: Peak Velocity: 0.64 m/s Peak Gradient: 1.68 mm[Hg], 1.57 mm[Hg] Right Atrium Right Atrium Systolic Pressure: 36.13 ml, 36.13 ml Dictated by: Alexandro Tracy M.D. on 03/14/2024 at 10:09 Approved by: Alexandro Tracy M.D. on 03/14/2024 at 10:15
[2024-03-13 06:58] LABS: Hemoglobin 11.7 g/dL (12.0-16.0)
--- NOTE | 2024-03-13 08:56 | RT_ITS ---
[facility] Test Date: 2024-03-13 Pat Name: CONSTANTINO CARDOSO Department: Room: - Gender: Female [employer] Supervisor: Richard Hawkins RRT : 1970 Requested By: [id number] Order Number: [id number] Reading MD: Wenceslao Merritt Interpretive Statements Pulmonary function testing was completed according to ATS criteria. Findings were considered accurate and reproducible, with exception of DLCO which only one trial due to equipment issues. No bronchodilator was administered due to normal spirometric values. No lung volumes were ordered. Spirometry: -FEV1/FVC: Normal @ 84% -FEV1: Normal @ 86% -FVC: Low normal @ 80% Diffusion capacity: -DLCO: Normal @ 83% when corrected for Hb 11.7g/dL Flow-volume loop: -Normal variant 'knee shape' Impressions: -Technically normal testing, though spirometry trends towards mild restriction. If asthma remains in the differential, may consider methacholine challenge testing. If there is concern about interstitial lung disease or other restrictive disorders, consider lung volumes. Clinical correlation required. Electronically Signed On 03-13-2024 12:52:52 EDT by Wenceslao Merritt
== END 2024-03-13 06:41 | disposition home or self-care (01) ==
LOC: CARD 06:41
PROVIDERS: PCP Nurse Practitioner Family; Visit Provider Internal Medicine Cardiovascular Disease
DX: Z12.31 Encounter for screening mammogram for malignant neoplasm of breast (principal); Z80.3 Family history of malignant neoplasm of breast; Z80.41 Family history of malignant neoplasm of ovary; Z80.0 Family history of malignant neoplasm of digestive organs; Z80.9 Family history of malignant neoplasm, unspecified; R06.09 Other forms of dyspnea
CPT/HCPCS: 36415; 77063; 77067; 85018; 93306; 94010; 94729

== ENCOUNTER 2024-04-06 07:56 | Outpatient (OUT) | payer BC, SELFPAY ==
--- OUTSIDE RECORDS SUMMARY | 2024-04-06 08:06 | XMS_ITS | CCD ---
Author Organization [facility] Care Team Providers Care Merchandise Distributor Name Role Phone LEONA MORTENSEN Admitting Unavailable LEONA MORTENSEN Attending Unavailable KEVIN HERRERA Primary Care Unavailable KEVIN HERRERA Referring Unavailable [place] Procedure Practitioner Unavailab ORESTES Cruz Surgeon Unavailable JUDI YOUSSEF Primary Care Physician DONI Youssef Primary Care Provider DO Conner Griffith Emergency Provider [phone] Jennie Ayon Unavailable MD Jennie Ayon Attending [...] Unavailable JUDI YOUSSEF Primary Care Unavailable DR CASSANDRA PUENTE V [...] Primary Care Unavailable MIKAEL, JUDI Consulting Unavailable Mikael CATERING CHEF-C Judi Joan Primary Care Provider DO Conner Griffith M Emergency Provider DO Bijan Pete A Emergency Provider [facility] Primary Care Provider [phone] Rafa Rangel Unavailable Renny Gan Unavailable Mikael, Judi Joan Primary Care Unavailable Gladis, Conner M Admitting Unavailable Gladis, Conner M Attending Unavailable Mikael, Judi Joan Primary Care Unavailable Asaad, Imad Admitting Unavailable Asaad, Imad Attending Unavailable Renny Gan Consulting Unavailabl e [facility], Judi Joan Primary Care Unavailable Deann Montalvo Attending Unavailable Alahmad, Alaa Admitting Unavailable Mikael, Judi Joan Primary Care Unavailable Gladis, Conner M Admitting Unavailable Gladis, Conner M Attending Unavailable Mikael, Judi Joan Primary Care Unavailable Keister, Pete A Admitting Unavailable Keister, Pete A Attending Unavailable KROHMARQUES D Referring Unavailable PAVLOCK[facility] Primary Care Unavailable PAVLOCK, [facility] Primary Care Unavailable KROH, MARQUES D Referring Unavailable KROH, MARQUES Patel Attending Unavailable PLESCIA IMER Referring Unavailable PAVLOCK, [facility] Primary Care Unavailable PAVLOCK, [facility] Primary Care Unavailable KROH, MARQUES D Referring Unavailable KAITLYN TORRES Attending Unavailable KROH, MARQUES D Referring Unavailable PAVLOCK, [facility] Primary Care Unavailable KATIAMELISSA VALLECILLO Attending Unavailable KROH, MARQUES D Referring Unavailable PAVLOCK, [facility] Primary Care Unavailable SLYPARTHAR ADENael Attending Unavailable KROH, MARQUES D Referring Unavailable PAVLOCK, [facility] Primary Care Unavailable BRENNEN SHAW Attending Unavailable Orzech, Yolanda X Attending Unavailable Orzech, Yolanda X Admitting Unavailable EDISON KINCAID Attending Unavailable EDISON KINCAID Attending Unavailable Orzech, Yolanda X Attending Unavailable Orzech, Yolanda X Attending Unavailable Orzech, Yolanda X Admitting Unavailable Samuel Estrella Attending Unavailable Allergies Allergy Classification Reported Allergen(s) Allergy Type Date of Onset Reaction(s) Facility (6 sources) cyclobenzaprine; Translations: [CYCLOBENZAPRINE] Drug Allergy 04-28-20 18 Swelling of Lip/Tongue/Thr oat [facility] (7 sources) Penicillins; Translations: [PENICILLINS] Drug allergy (disorder) 09-02-20 15 Rash [facility] (20 sources) cyclobenzaprine; Translations: [cyclobenzaprine] Drug Allergy 04-28-20 18 Pharyngeal swelling (finding), Swelling [facility] (20 sources) Penicillin; Translations: [penicillin] Drug Allergy 04-28-20 18 Swelling (morphologic abnormality), Swelling [facility] (8 sources) penicillAMINE Drug Allergy rash [employer] Other (2 sources) cyclobenzaprine Drug Allergy 03-23-20 16 [facility] Repository (1 source) traMADol Drug Allergy [facility] (1 source) traMADol Drug Allergy [facility] (1 source) cyclobenzaprine Drug Allergy 03-23-20 23 [facility] Repository (1 source) Penicillins Drug allergy (disorder) 03-23-20 23 [facility] Rep[facility] Medications Current Medications Medication Drug Class(es) Dates Sig (Normalized) Sig (Original) acetaminophen 325 mg oral tablet (10 sources) Start: 01-16-2020 take 1 tablet by mouth every four hours as needed for pain Tylenol 325 mg Tab 325 mg = 1 tab(s), Oral, q4hr, PRN Pain, Refills(s) 0 Start Date: 01/16/20 Status: Ordered acetaminophen 325 mg / butalbital 50 mg / caffeine 40 mg oral tablet (10 sources) Barbiturate, Central Nervous System Stimulant, Methylxanthine Start: 07-22-2020 take 1 tablet by mouth every twelve hours as needed for headache APAP/butalbital/c affeine 325 mg-50 mg-40 mg Tab 1 tab(s), Oral, q12hr as needed for headache, Refill(s) 0, as needed Start Date: 07/22/20 Status: Ordered albuterol HFA 90 mcg/inh MDI (10 sources) Start: 01-14-2020 take 2 puff(s) by inhalation every four hours as needed for wheezing albuterol HFA 90 mcg/inh MDI 2 puff(s), Inhalation, q4hr as needed for Shortness of breath or wheezing, Refill(s) 0 Start Date: 01/14/20 Status: Ordered azithromycin 250 mg oral tablet (2 sources) Macrolide Antimicrobial Start: 02-16-2024 azithromycin 250 mg Tab 250 mg, Oral, As Directed, # 6 tab(s), Refills(s) 0 Start Date: 02/16/24 Status: Ordered dicyclomine hydrochloride 10 mg oral [...] day(s), # 120 cap(s), Refills(s) 11, Pharmacy: [facility]/pharmacy #[id number], 170, cm, 05/05/21 14:15:00 EDT, Height/Length Dosing, 83.1, kg, 05/05/21 14:15:00 EDT, Weight Dosing Start Date: 05/05/21 Stop Date: 04/30/22 Status: Ordered Start: 09-20-2020 take 2 capsules by m outh four times daily Bentyl 10 mg Cap 20 mg = 2 cap(s), Oral, QID, # 20 cap(s), Refills(s) 0, Pharmacy: [facility]/pharmacy #[id number], 170, cm, 09/20/20 16:03:00 EST, Height/Length [...] by mouth before meals and at bedtime. estradiol 0.1 mg/ml vaginal cream (2 sources) Estrogen Start: 02-16-2024 Estrace 0.1 mg/g Cream 1 gm, Vaginal, As Directed, 42.5 gm, Refill(s) 3, Apply pea-sized amount around urethra every night x 3 weeks, then 2 times weekly for maintenance, [facility]/pharmacy #[id number], 170, cm, 02/16/24 9:10:00 EDT, Height/Length Dosing, 81.7, kg, 02/16/24 9:10:00 EDT, Weight Dosing Start Date: 02/16/24 Status: Ordered famotidine 20 mg oral tablet (9 sources) Histamine-2 Receptor Antagonist Start: 01-28-2022 End: 04-28-2022 take 1 tablet by mouth once daily at bedtime Pepcid 20 mg Tab 20 mg = 1 tab(s), Oral, Once a day (at bedtime), X 90 day(s), # 90 tab(s), Refills(s) 0, Pharmacy: [facility]/pharmacy #[id number], 170, cm, 01/28/22 13:40:00 EDT, Height/Length Dosing, 84.5, kg, 01/28/22 13:40:00 EDT, Weight Dosing Start Date: 01/28/22 Stop Date: 04/28/22 Status: Ordered Start: 02-27-2019 End: 06-21-2019 take 1 tablet by mouth twice daily Famotidine (Pepcid) 20 mg tablet Discontinued 20 MG PO Twice daily 60 February 27, 2019 12:00am June 21, 2019 1:42pm Start: 03-28-2018 End: 05-09-2018 take 1 tablet by mouth twice daily Famotidine (Pepcid) 20 mg tablet Discontinued 20 MG PO Twice daily 30 March 28, 2018 12:00am May 09, 2018 12:01am metoclopramide 10 mg oral tablet (20 sources) Dopamine-2 Receptor Antagonist Start: 04-13-2018 take 1 tablet by mouth three times daily Reglan 10 mg Tab 10 mg = 1 tab(s), Oral, TID, # 120 tab(s), Refills(s) 0, Pharmacy: [facility]/pharmacy #[id number], 170, cm, 04/13/21 15:38:00 EDT, Height/Length Dosing, 84.4, kg, 04/13/21 15:38:00 EDT, Weight Dosing Start Date: 04/13/21 Status: Ordered Start: 04-13-2018 take 1 tablet by ana th four times daily Reglan 10 mg Tab 10 mg = 1 tab(s), Oral, QID, # 120 tab(s), Refills(s) 0, Pharmacy: [facility]/pharmacy #[id number], 170, cm, 07/22/22 14:33:00 EST, Height/Length [...] MG PO Q6H March 23, 2023 12:00am naproxen 500 mg oral tablet (7 sources) Nonsteroidal Anti-inflammatory Drug Start: 02-19-2023 take 1 tablet by mouth twice daily as needed for pain Naprosyn 500 mg Tab 500 mg = 1 tab(s), Oral, BID, PRN for pain, # 20 tab(s), Refills(s) 0, Pharmacy: [facility]/pharmacy #[id number], 170, cm, 02/19/23 0:56:00 EDT, Height/Length [...] day(s), # 90 cap(s), Refills(s) 1, Pharmacy: [facility]/pharmacy #[id number], 170, cm, 04/14/22 14:53:00 EDT, Height/Length [...] Daily, # 90 cap(s), Refills(s) 3, Pharmacy: [facility]/pharmacy #[id number], 170, cm, 01/11/22 9:17:00 EDT, Height/Length Dosing, 83, kg, 01/11/22 9:17:00 EDT, Weight Dosing Start Date: 01/11/22 Status: Ordered omeprazole 40 mg Cap-DR (1 source) Start: 2 End: 2 take 1 capsule by mouth once daily omeprazole 40 mg Cap-DR 40 mg = 1 cap(s), Oral, Daily, X 90 day(s), # 90 cap(s), Refills(s) 0, Pharmacy: [facility]/pharmacy #[id number], 170, cm, 01/28/22 13:40:00 EDT, Height/Length [...] by mouth twice daily. polyethylene glycol 3350 60656 mg powder for oral solution (1 source) [...] 8:47pm Symbicort 160/4.5 inhalation aerosol with adapter (10 sources) Start: 01-14-2020 take 2 puff(s) by inhalation twice daily Symbicort 160/4.5 inhalation aerosol with adapter 2 puff(s), Inhalation, BID, Asthma Start Date: 01/14/20 Status: Ordered venlafaxine (8 sources) Serotonin and Norepinephrine Reuptake Inhibitor Venlafaxine HCl ER Active Vitamin D (2 sources) Start: 06-13-2024 Vitamin D International_Un it, Oral, qWeek, Refills(s) 0 Start Date: 02/16/24 Status: Ordered Zofran ODT 4 mg Tab-Dis (10 sources) Start: 09-20-2020 take 1 tablet by mouth every six hours as needed for nausea Zofran ODT 4 mg Tab-Dis 4 mg = 1 tab(s), Oral, q6hr, PRN Nausea/Vomiting, # 12 tab(s), Refills(s) 0, Pharmacy: [facility]/pharmacy #[id number], 170, cm, 09/20/20 16:03:00 EST, Height/Length Dosing, 87.5, kg, 09/20/20 16:03:00 EST, Weight Dosing Start Date: 09/20/20 Status: Ordered Completed/Discontinued Medications Medication Drug Class(es) Dates Sig (Normalized) Sig (Original) acetaminophen 325 mg / HYDROcodone bitartrate 5 mg oral tablet (6 sources) Opioid Agonist Start: 06-21-2019 End: 02-15-2023 take 1 tablet by mouth every six hours Hydrocodone-Acetami nophen (Carlyle) 5-325 mg Tablet Discontinued 1 TAB PO Q6H June 21, 2019 12:00am February 15, 2023 9:46am Start: 11-12-2018 End: 01-30-2019 take 1 tablet by mouth every four to six hours Hydrocodone-Acetaminophen (Carlyle) 5-325 mg tablet Discontinued 1 TAB PO [...] 30, 2019 12:00am February 25, 2019 6:46pm metroNIDAZOLE 500 mg oral tablet (12 sources) [...] meal/food ondansetron 4 mg disintegrating oral tablet (19 sources) Serotonin-3 Receptor Antagonist Start: 02-15-2023 End: [...] obstruction or gangrene] Onset: 04-28-2018 01-08-2020 Episodic Abdominal pain (20 sources) Epigastric pain; Translations: [...] [Unspecified asthma, uncomplicated] Chronic Biliary tract disease (10 sources) Gallstone 01-08-2020 Episodic Calculus of urinary tract (10 sources) Kidney stone 05-10-2019 Episodic Cardiac dysrhythmias (4 sources) Palpitations; Translations: [Tachycardia, unspecified] Onset: 02-15-2024 Episodic Coagulation and hemorrhagic disorders (2 sources) Von Willebrand's disease; Translations: [VON WILLEBRAND DISEASE] Onset: 02-04-2022 Chronic Epilepsy; convulsions (10 sources) Seizure 07-10-2020 Episodic Esophageal disorders (20 sources) Pearce's esophagus; Translations: [Pearce's esophagus without dysplasia] Onset: 01-11-2022 Chronic Essential hypertension (13 sources) Hypertensive disorder; Translations: [Essential (primary) hypertension] Onset: 11-30-2022 01-22-2020 Chronic Fluid and electrolyte disorders (3 sources) Dehydration; Translations: [Hypokalemia] Onset: 04-07-2022 Episodic Genitourinary symptoms and ill-defined conditions (20 sources) History of urinary tract infection; Translations: [Proteinuria] Onset: 11-30-2022 02-24-2021 Episodic Headache; including migraine (11 sources) Migraine; Translations: [Migraine, unspecified, not intractable, without status migrainosus] Onset: 04-07-2022 05-10-2019 Chronic Heart valve disorders (11 sources) Mitral valve prolapse; Translations: [Nonrheumatic mitral (valve) prolapse] Onset: 11-04-2022 09-08-2019 Chronic Miscellaneous mental health disorders (1 source) Psychological and behavioral factors associated with disorders or diseases classified elsewhere; Translations: [Psychological factors affecting medical condition] Onset: 07-13-2023 Chronic Nausea and vomiting (20 sources) Nausea and vomiting; Translations: [Nausea with vomiting, unspecified] Onset: 01-28-2022 Episodic Noninfectious gastroenteritis (2 sources) Noninfective gastroenteritis and colitis, unspecified; Translations: [NONINFECTIVE GE AND COLITIS UNS] Onset: 06-08-2022 Episodic Nutritional deficiencies (1 source) Malnutrition (calorie); Translations: [Moderate protein-calorie malnutrition] 07-22-2023 Chronic Osteoarthritis (10 sources) Arthritis 05-10-2019 Chronic Other aftercare (1 source) Other medical terminologist (current) drug therapy; Translations: [OTH PEDIATRIC ALLERGIST CURRENT DRUG THERAPY] Onset: 11-30-2022 Episodic Other diseases of bladder and urethra (11 sources) Traumatic urethral stricture; 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, female] Onset: 02-16-2024 02-24-2021 Episodic Other disorders of stomach and duodenum (17 sources) Gastroparesis syndrome; Translations: [Gastroparesis] Onset: 04-14-2022 05-26-2021 Episodic Other disorders of stomach and duodenum (2 sources) Gastroparesis; Translations: [Gastroparesis] Onset: 03-26-2023 Episodic Other gastrointestinal disorders (10 sources) Diarrhea 05-26-2021 Episodic Other gastrointestinal disorders (11 sources) Heartburn; Translations: [Heartburn] Onset: 04-14-2022 07-10-2020 Episodic Other gastrointestinal disorders (1 source) Digestive system finding; Translations: [Other specified symptoms and signs involving the digestive system and abdomen] Onset: 04-14-2022 Episodic Other gastrointestinal disorders (6 sources) Irregular bowel habits 04-14-2022 Episodic Other gastrointestinal disorders (11 sources) Constipation; Translations: [Constipation, unspecified] 09-20-2022 Episodic Other gastrointestinal disorders (8 sources) Esophageal dysphagia; Translations: [Dysphagia, unspecified] Episodic Other gastrointestinal disorders (3 sources) Dark stools 09-20-2022 Episodic Other gastrointestinal disorders (3 sources) Hard stool 09-20-2022 Episodic Other gastrointestinal disorders [...] injuries and conditions due to external causes (10 sources) Bezoar 05-26-2021 Episodic Other injuries and conditions due to external causes (1 source) Foreign body in digestive tract; Translations: [Foreign body in stomach, sequela] Onset: 01-28-2022 Episodic Other injuries and conditions due to external causes (9 sources) Foreign body in stomach; Translations: [Foreign body in stomach, initial encounter] Onset: 07-22-2022 01-28-2022 Episodic Other lower respiratory disease (2 sources) Other forms of dyspnea; Translations: [Other forms of dyspnea] Onset: 02-15-2024 Episodic Other nervous system disorders (1 source) [...] Chronic Other nutritional; endocrine; and metabolic disorders (11 sources) Body mass index 25-29 - overweight; Translations: [Overweight] 10-18-2019 Episodic Other nutritional; endocrine; and metabolic disorders (2 sources) Overweight; Translations: [Overweight] Onset: 02-15-2024 Episodic Other screening for suspected conditions (not mental disorders or infectious disease) (4 sources) Encounter for screening mammogram for malignant neoplasm of breast; Translations: [ENC SCR MAMMO MALIG NEOPLASM BREAST] Onset: 11-30-2022 Episodic Residual codes; unclassified (2 sources) Obstructive sleep apnea (adult) (pediatric); Translations: [Obstructive sleep apnea (adult) (pediatric)] Onset: 02-15-2024 Chronic Residual codes; unclassified (1 source) Family history [...] of mental health and substance abuse codes (3 sources) Personal history of nicotine dependence; Translations: [PERSONAL HISTORY OF NICOTINE DEPEND] Onset: 11-30-2022 Episodic Spondylosis; intervertebral disc disorders; other back problems (3 sources) Backache 09-20-2022 Episodic Sprains and strains (12 [...] Translations: [LOW BACK PAIN, UNSPECIFIED] Onset: 04-07-2022 Unclassified (2 sources) Asymptomatic microscopic hematuria 02-16-2024 Urinary tract infections (5 sources) Urinary tract infectious disease; Translations: [Urinary tract infection, site not specified] Onset: 04-07-2022 06-21-2019 Episodic Past or Other Problems Problem Classification Problem Date Documented Da te Episodic/Chronic Bacterial infection; unspecified site (1 source) Unspecified [...] OBST UNS TO CAU] Onset: 03-27-2022 Episodic Other connective tissue disease (4 sources) [...] Test Name Value Interpretation Reference Range Facility Reminderson 03-23-2024 Reminders Reminders From: Ani Jackson To: EU - Administrative; Sent: 02/16/2024 09:54:18 EDT Show up: 03/05/2024 09:54:00 EDT Subject: Ambulatory Reminder Due Date/Time: 05/20/2024 09:54:00 EDT Reminder/Recall Patient needs scheduled for a 3 month f/u with AO in [place], due back mid May. [facility] FOR PATIENT TO CALL AND SCHEDULE APPT Normal [facility] Office Visiton 03-19-2024 Follow-up visit [id number] Arielle Cardoso 1970 F Date Provider Department Center 03/19/2024 [id number] KINACID MICHAEL [facility] Family History Problem Relation Age of Onset Heart attack Father Family Status - Relation Status Age at Father Level of Service:32059 [place] OFFICE/OUTPATIENT ESTABLISHED MOD MDM 30 MIN [facility] Coding Summary.on 02-25-2024 Coding Summary. [id number]+PG hlYWQ+P Z8RUJFrJ51npJBnqX6fQ6OILNmU YwdwRZGADTmAZvMjctJaNE1yjRP jZXJu IC8+KQ6qBLQqPrnbbXDzf6L1yJQ 0A67mnc5jQYgpwCG4FWMgZfLwro wfr9pnvOn2TAzgMrbcMqWr OYLbcJ44ZFI8kP82Nq99uZIepWV kv1uddMc8VcTeFOUyIGG3qOqzXA ghc6OlIRFjU64ouWVky9J7 WWVupIrcoBMtKrFfpLO5lO6oCMj iwxihh8yoqwptAuz9jz97gNOtn1 J6eDI2D4RgsxR0ANOsgHMv UdubuPYFfA0rpcydi0whvaawJyX wRQDkPGo9XSb0PSQbtHliYiSlTE 89JCD6XWGezkXnW4AxKEHp iPxzRaS9t0L6Om7FP8LUFwafF8M NTUFSWTwvdGQ+ZA60ew04P2WjBt qvHhv3DDOjHRC7mQH2vI7k EZRoAJqmt1A1oAY5O7NtefBblu2 pv1gbQLZzZJcvL28hwJQew3K4FV BegTD0HHZgiHryYaRoaN74 Oyc+SKPekHfop6GaXsxqk8ldq0l stHg9TfrbEQKwprUadKxmXFM8z2 VyTu6kDSAxhPI3bUU0nG1l ZiSuZkY3ZFhsX000LxYomPZpNpf rR87qV6PnlJE+SXDhXnh1RUZbkS xvSY2vV0RqZCQlkyonwVRl eWahMH8bQEMyxalcGYXkhF2lHWW oG4k7IiUcCgW1VIasU0TuZHZjqt tfQs54eX4sTuKvGpE4KAtf C2RtttI9CSOsyLLkQTzgLOX9E38 bc5I7EBFtIEIcTYU2uTY5pF8vmU lnbjogbGVmdDsgdmVydGlj WXszUOggQ093JMLhrKdxOqRwSVp uZyBEYXRlOiAgMDYvMjIvMjAyND wvdGQ+EMNpHNO4vSmcWYRj kFQqJHyhLw8ocVyikRkgPJ3bZMM knjrzQGFxeI2vTDOgmGIoaEeqXD 3iXGKmyadba579NuPoGVY8 KBQxkNFaZ3PriY4fGcGeQVBwZQU eW7WqlTUcFRlvR570UZyoBzG3PV PazjZzX9GwSSNfzTqdQmL2 x7Z6Uy5Mv5LkwvsmH4ZyqCAuKcR nFoqrPSe7Q4SwHjhkiMI+PC90YW OmLO54GCk7TVL4kCgvHPxq EGJaW0LorJ5gLmAwDBWsJKByXbm +PHRhYmxlIHdpZHRoPScxMDAlJy KiaJhnFQ0uJm1dFYHrSSSe zDqgdOCiXnVnf9euUYYfSDnjZD5 rcXcvK0PcdBZ1YYXvs8t3Lp10Q9 0zZ7RjdWP+ENJjbMM7jCJ9 zM6eWaWtJdF4HDuhX845DfBnsYL oPodjq8fsh8vfbJg2NdN7EHXici TwtCoxFQQ7u1WwWn29Q36z IHdpZHRoPSIxNSUiIHZhbGlnbj0 vuG2iDu3+GXCwyXY6zCM5mP5xYe EgFeC6WPtpF892BfNpwOMv Yatpp8cdj2aqkUw1WkFrBRAwlvX lvOidKTZ4w0DwUo75J0FnoWhll9 AaMtu2lo35kWWro5A3sBK4 Y5MbMGLbnwmbuTVfgOuzIA4lLAC colniXPWixA1gPHOgU9v0MqVxQx J3KKyaS2SidaW5HDHtxGHt VCTrpUTKpV7maicho3cmpupbDxS cGQHcNMs8WPh5IHEvmJatYiAlQT G2AxC4AXU6vPRlwN1bmPvi aiyebS4zKan+HHQ3sHSemCMKOJ2 lOjwvdGQ+SCJbWQX8hIjsQItnPP OgvB9yNDLlQ0n7XrPhZpX4 DSwvD6PkdkN6ZHKwdSQxEAEfoBC FkM4ncozbi8hskekeWqDxKKWfNN w5ZSr5HONccPznIaTdNXZ7 YxQ5PST9wIJskM4bxBjyjmgbqN5 wOyc+IdggaQppADT0LYh5W1KwQj h5ASGovLntUF6mjCTuTFqs Lr2gxKampDuoEJ0bGFKfeadfc98 9JtDyx8pdWQZefDCuAQanZSU0J6 2za0K0RTVvXWDlSAT6lLG1 pN8tzLbpxqtvcRUbnAlbqbCpmOv fZMczOUntK721RABciUyrOfNhKU u8J4PbIex3VDAtgCjoOK1j iDMvRNzjXa5hkXjkyCbcGY8kQGG ugjdev231DkCtw1skBVCfbOBtSN rxBAY1S66nd2V6LAXeKTJg HWV5pVA3oB2zpLmqiirinDVxgZg cqkZufPofHDfmJDdyG597RJMnuL twXbLcdMd5I4TbIri3LKUm rTwbTM8ohTKuGJtmMj9voNpstHi nOH0dMQBzhyeui414MtTga1asQD QhnCZzTChkOCZ4G62xp8I2 GSKpHHNjAAY8tIU1xA4kvWgojtp gbGVmdDsgdmVydGljYWwtYWxpZ2 46IHRvcDsnPlBhdGllbnQg SBpmCSv9M0NiDstbvNS+NR68HIN nEO53hIDsmYYxk1vcdSm3DsLjBK LdZXF7aJfxZIhrs4UeTJNs C60kzHEvx7W2QDQujSoqdFCrEuN osEC7wB0tHUfqhlfmm1xwyaklUd ohv5qdny37xO71Q50sDRko FGCqGKMgPPVoCMYomOzuro6tpP1 wIi8+ABQoyGP7gUY7lE7aWVIjDt T2QHfyZ095XeSrsJOvPeiy h7fia2hkrGw3LgN2PBKrttRshBo uPCU0j5FrSw66U53eOYxuJFHpKO BgNGRrKBDxoMruzd3ydA4t Ii8+GVRrkQQ8xHL2zM9lUrMzDkT 0SMcwE809LtPsvAAvBuazU90yK9 JvdXA+BBPbRvg4VXOugRee DE8xoSMxMAhzEi8gHUS0KtBrDaY pXVntI9HhIBBputcfczjtsRY4DM DbIZUdeT40Ei5ebMtmXVQc cHUHoK2bcfszb4wxfsfhXwKhPLU lYVw3BAt7WWQzuInjXyUqAVQ1Mq S0EVY3cGMjxR5yhQpniscz uM1nS1KrGWSfqlgvLj49mI3zKuI nSmW1DAefPqm+Q9EVGIflKLBMGE rHUS9WDVPBBY57LY71fIOp b3C9rKR6J1QzJPRmtawxzbeqzPR 7EJUdWGFbeD64oQWfCUyaPu8mg3 G0s169NFUmNTUhiL27Gv8o tTjqFBGbpPVTaK0notnpd5ervlt aIqFbFZTzMXl8XPb5KWOrwDnyGe ThXEY0OpY6NLO0mGLhlA7w dUotdwrkfC8hNdc+MDkvMjMvMTk 3MDwvdGQ+AXTkNUO5fGedSXwvZC GjzM4cYYAkU8m4MnQkPbV9 MXojM4JcZVGuazbpYk66oS2aBjK aEzG8XLwbF6TspwR2EZMwtRZfYG kpQOA9F68ma2V3BWPdHYVr TJW7nKA4cW1oiBmpstlosBSqoYv cuyEuwKozDQghFYogB752ATTrvW klAdXxSLpkWOOjDA62VJ48 rKNos9Y5pIY2X2FyLUCkjgxblyt niAK2YXUiIQMlkW53tXIgUDwmEw 7aa5Z9l386UMAvCPNqnL31 Js8csZtiIETmmCHLlO0mbvkkv9u gwiorEpQaNWRvCKc1OYt6ZSHixK lzKzIjTLO3BsM7RVP2kSBt sT0gaEmdimphcX7kHme+RmVtYWx hST66ZC92jRJuq7F7eMT5D0QlPY JsuierjdqpzCF8IIBoIDFp fS37aZZwEOnkUo7ll2B1g566LSB gWVMctL21Ug1csGgmSBRvjRGIoP 5izmwdx0ayxwzxFpItDJVu GWh7GYi8QFXayUuqOfDaYXX3YjZ 8TES2zOFnpO6itReizosbfL0wQp c+LAAgRBUqs2Iew1QwPE46 UN36J8VlCchkeZGulKE+PHRhYmx lIHdpZHRoPScxMDAlJyBzdHlsZT 0zJw6eVYUjIKOshMdgyCWr SiLgv3aqNXEvWAdnHO6drJztF1Z isJL1LSYkx0i4Yz42C74kR2AhrM A+TEWqvDC1nGA8yH9dHwKs IiU0BIjuS264QeWcgURmHwedp0q pc7hiqEv3ShTaDZYvavYymDxqPF P2q0ZaFj95I66sGJoxYJCf LZIfMYRvJMNapAtvzy4tnB0tMe7 +OHHvjPY5uVL4rZ1kNbJlRrM8VX rwM103QxNseBVxKrbnP79r J5QqqQM+ZBUmTey4GPQlcXzzHL8 cxAAwAFewLc1xYKM9QvFlPpZoAX wgZ9QgWIKrlgbsybkfsVF6 QPIeFSOobX24Fs8dzDkrYw8oWYC dREY9MJNnvYHgA3XrxM5kGxUyWK RhKPVxO2RrgJVgGSijO523 HGirUlE0HZUqhpTuX8CwITWvmGr wRcH0u0Y4Fs5BeOaswNSpJM0fDi EdFYr1L0AdXfi1QFLrjMzg WD1mwULnQQhtAr7yoGldrZhuAH9 gQRRycelth628OnTwz1jkZOAhzO PgSYsbBHD6I61pj4X9ZHLq KPAePGG0oZV8lZ6isBtvusqjbNO bhIsppeTgwXslWQddURzjK131SG VtnWibRkMNUmz1A9PcSmg7 EYRaxEkeEE2rqIGgTIxgXc6vkSp atKleSH2lRRFdlmilk213WdCwk4 zsWJMzrDIdRWvlKZE7B17p x6E0TGCrSIHjODR6jYR9pA4hxSy nbjogbGVmdDsgdmVydGljYWwtYW yhS951PTNctOcgHt2AVfk9 F3WqGwq9LOQtvOtlIJ3qqODcVCx cUs2qqDlgcMpqYR3mPOEhnawhu1 83YbSwa1ncYWGgjGHyDVwo MAM2V38so3M2DIWaOUVhPLE0pEG 0xU0epMlkjbndwNAvcIdxkvYsnW jyHIczBOpsC295EJRowNek PlBheWVyOjwvdGQ+VA24rs59A8W eGdeoClx2ETBrVUV7rGW2kL9yUV AiHZzrk4D4gZP7Z1FyhtVx mt3zx5fzHLDyG (more content not included)... Normal [facility] Patient Educationon 02-21-20 Patient Education Obstetrics and Gynec ology Urinary Tract Infection, Adult A urinary tract infection (UTI) is an infection of any part of the urinary tract. The urinary tract includes the kidneys, ureters, bladder, and urethra. These organs make, store, and get rid of urine in the body. An upper UTI affects the ureters and kidneys. A lower UTI affects the bladder and urethra. What are the causes? Most urinary tract infections are caused by bacteria in your genital area around your urethra, where urine leaves your body. These bacteria grow and cause inflammation of your urinary tract. What increases the risk? You are more likely to develop this condition if: ? You have a urinary catheter that stays in place. ? You are not able to control when you urinate or have a bowel movement (incontinence). ? You are female and you: ? Use a spermicide or diaphragm for control. ? Have low estrogen levels. ? Are . ? You have certain genes that increase your risk. ? You are sexually active. ? You take antibiotic medicines. ? You have a condition that causes your flow of urine to slow down, such as: ? An enlarged prostate, if you are male. ? Blockage in your urethra. ? A kidney stone. ? A nerve condition that affects your bladder control (neurogenic bladder). ? Not getting enough to drink, or not urinating often. ? You have certain medical conditions, such as: ? Diabetes. ? A weak disease-fighting system (immunesystem). ? Sickle cell disease. ? Gout. ? Spinal cord injury. What are the signs or symptoms? Symptoms of this condition include: ? Needing to urinate right away (urgency). ? Frequent urination. This may include small amounts of urine each time you urinate. ? Pain or burning with urination. ? Blood in the urine. ? Urine that smells bad or unusual. ? Trouble urinating. ? Cloudy urine. ? Vaginal discharge, if you are female. ? Pain in the abdomen or the lower back. You may also have: ? Vomiting or a decreased appetite. ? Confusion. ? Irritability or tiredness. ? A fever or chills. ? Diarrhea. The first symptom in older adults may be confusion. In some cases, they may not have any symptoms until the infection has worsened. How is this diagnosed? This condition is diagnosed based on your medical history and a physical exam. You may also have other tests, including: ? Urine tests. ? Blood tests. ? Tests for STIs (sexually transmitted infections). If you have had more than one UTI, a cystoscopy or imaging studies may be done to determine the cause of the infections. How is this treated? Treatment for this condition includes: ? Antibiotic medicine. ? Ydtg-yym-uiqqilr medicines to treat discomfort. ? Drinking enough water to stay hydrated. If you have frequent infections or have other conditions such as a kidney stone, you may need to see a health care provider who specializes in the urinary tract (urologist). In rare cases, urinary tract infections can cause sepsis. Sepsis is a life-threatening condition that occurs when the body responds to an infection. Sepsis is treated in the hospital with IV antibiotics, fluids, and other medicines. Follow these instructions at home: Medicines ? Take yynm-kqg-ysjwocr and prescription medicines only as told by your health care provider. ? If you were prescribed an antibiotic medicine, take it as told by your health care provider. Do not stop using the antibiotic even if you start to feel better. General instructions ? Make sure you: ? Empty your bladder often and completely. Do not hold urine for long periods of time. ? Empty your bladder after sex. ? Wipe from front to back after urinating or having a bowel movement if you are female. Use each tissue only one time when you wipe. ? Drink enough fluid to keep your urine pale yellow. ? Keep all follow-up visits. This is important. Contact a health care provider if: ? Your symptoms do not get better after 1?2 days. ? Your symptoms go away and then return. Get help right away if: ? You have severe pain in your back or your lower abdomen. ? You have a fever or chills. ? You have nausea or vomiting. Summary ? A urinary tract infection (UTI) is an infection of any part of the urinary tract, which includes the kidneys, ureters, bladder, and urethra. ? Most urinary tract infections are caused by bacteria in your genital area. ? Treatment for this condition often includes antibiotic medicines. ? If you were prescribed an antibiotic medicine, take it as told by your health care provider. Do not stop using the antibiotic even if you start to feel better. ? Keep all follow-up visits. This is important. This information is not intended to replace advice given to you by your health care provider. Make sure you discuss any questions you have with your health care provider. Document Revised: 04/03/2021 Document Revie (more content not included)... Normal [facility] Urology Office/Clinic Noteon 02-21-2024 Urology Office/Clinic Note Chief Complaint Recurrent UTI's HPI Staff Former [facility] Pt is here for recurrent UTI's Last OV 02/24/21 Previous DX; Hx of UTI, urethral stricture, Proteinuria Has had UTI since October Bactrim for sure she knows they used from PCP Has UD by K[facility] 11/06/20 B&BSQ 20 PVR 49 Dysuria: yes off and on since October Incomplete bladder emptying: denies Hematuria: denies visible blood ( Small on UA today) Frequency: 2-3x nightly Urgency: yes Nocturia: couple times nightly Stream: denies hesitation Leaking: sometimes Post void dripping: yes Wearing pads/ Depends: wears pad daily changes 2-3x daily Urge incontinence: yes Stress incontinence: yes Incontinence without Sensory Awareness: denies Abdominal pain: sometimes since October Flank pain: left side pain sometimes radiates right side... Started in October also Sexual complaints: pain with intercourse History of Present Illness I have reviewed and verified the staff HPI to be accurate for this encounter. Portions of this record may have been created with voice recognition artificial intelligence software, specifically [employer]ocket (PRIMP), [employer] and or [employer]. Substitutions may have occurred due to the inherent limitations of voice recognition and artificial intelligence software. Review of Systems PHQ Score Initial Depression Screen Score: 0 SCORE Physical Exam Vitals & Measurements T: 36.5 ?C(Temporal Artery) HR: 78(Peripheral) BP: 128/84 HT: 67 in HT: 170 cm WT: 81.7 kg WT: 179.74 lb BMI: 28.27 General: Well developed, well nourished, in no acute distress. Genitourinary: Flank Pain: none. Bladder: nonpalpable. 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 Recurrent UTI (N39.0: Urinary tract infection, site not specified) UCX: 06/08/2023- >100k E. coli, pansensitive 11/03/2023- >100k E. coli, resistant to ampicillin, Unasyn, cefazolin, ceftazidime, Rocephin, Cipro, Levaquin 11/23/2023- 50-60k group B strep, resistant to tetracycline 01/02/2024- >100k Enterococcus faecalis, resistant to Cipro, gentamicin, Levaquin, tetracycline most recent UTI: since Oct UA in office today not suspicious for UTI current UTI symptoms no UTI frequency every 1-2 mos UTIs started worsening in the past 6-12 mos Prior to that averaged UTIs very rarely pt's typical UTI sx include- dysuria, low back pin hx stones no immunosuppressed no post-menopausal/hysterectom y yes complete hysterectomy at age 29 proper hygiene habits: wipes front to back every time yes avoids baths/hot tubs yes 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 Aim for at least 2L daily. General bladder health reviewed and pt education provided. Bladder irritant list provided for pt to review. 2) Ensure bladder emptying fully. PVR today 29 . Discussed double void maneuvers (encouraged to lean forward, apply gentle pressure on the bladder, and standing then sitting again). 3) We discussed that there is evidence that herbal supplements may help - cranberry, probiotics, and d-mannose. R US 01/06/2024 - negative We will start pt on topical estrogen cream. Reasoning, side effects, risks/benefits discussed. Rx sent to pharmacy. Pt advised to contact our office w all future UTI sx so we can monitor urine cx results, treat appropriately (may require extended course abx), and monitor frequency of infections. Pt advised if develops fever, severe flank pain, vomiting - needs to go to ER. If continues to get breakthrough UTIs, we will consider repeat UD. -f/u 3 mos for recheck 2. Asymptomatic microscopic hematuria (R31.21: Asymptomatic microscopic hematuria) UA today with small blood, negative for leukocytes, nitrites. Denies ever having episode of gross hematuria. Former smoker, quit in 2012 Discussed potential etiologies and implications of hematuria with patient. These include: trauma (recent catheterization, etc), Tumor (renal, urothelial, prostatic, urethral, etc), infection/inflammation (UTI, cystitis, recent catheterization, interstitial cystitis, radiation), stones, period/menses (pseudohematuria), obstructive uropathy (urolithiasis, stricture, etc), nephritis (glomeurlonephritis, Alport's syndrome, Mckenzie's IgA nephropathy, interstitial nephritis, etc), Tuberculosis, thrombosis (renal vein thrombosis, renal infarct, pseudoaneurysm, etc) and hematologic (bleeding disorders, anticoagulation, sickle cells disease, etc) Urologic malignancy is more common in patients with gross hematuria (23%) than in patient with microscopic hematuria (5%). In adults with microscopic hematuria, the initial evaluation fails to identify an etiology in 43% of patients. Approximately 1-3% of these patients eventually develop a urologic malignancy. In adults with gross hematuria, the initial evaluation fails to identify an etiology in 8% of patients. (more content not included)... Normal [facility] Comment on above: Result Comment: Elec tronically Signed By: RUDY Lou APRN, [place] X\.br\Date and Time Signed: 02/21/24 23:19 EDT C Urineon 02-18-2024 Bacteria identified Cx Nom (U) Microbiology PROCEDURE: Urine Culture [R1] SOURCE: U CleanCatch BODY SITE: COLLECTED DATE/TIME: 02/16/2024 10:01 EDT RECEIVED DATE/TIME: 02/16/2024 14:33 EDT START DATE/TIME: 02/16/2024 14:33 EDT FREE TEXT SOURCE: RUDY Lou APRN, Orzech AIRLINE COUNTER AGENT, AIRFRAME AND POWER PLANT MECHANIC-C, Yolanda X Yolanda X FINAL REPORTS Final Report [] Verified Date/Time: 02/18/2024 08:52 EDT 25,000 cfu/ml Streptococcus agalactiae (Group B) Presumptive isolated. Penicillin is the drug of choice for Beta Hemolytic Streptococci Isolates. Routine susceptibility testing on Beta Hemolytic Streptococcus isolates is no longer performed. Susceptibilities will continue to be performed on Isolates from sterile body fluids and serious wound infections. 3,000 cfu/ml Mixed skin contaminants Performing Locations R1: This test was performed at: [facility], [address] [place] [address], [address]- , , [facility] Comment on above: Performed By: #### 2 [id number] #### [facility] [address] [place] [address] Lab Reportson 02-17-2024 Lab Reports [id number]#1.00TIFF [facility] Lab Reports [id number]#1.00TIFF [facility] Lab Reports [id number]#1.00TIFF [facility] Lab Reports [id number]#1.00TIFF [facility] RAD - Ultrasound Reporton RAD - Ultrasound Report [id number]#1.00TIFF [facility] Screenson 02-17-2024 Screens [id number]#1.00TIFF Normal [facility] URINALYSISOrdered By: SYSTEM SYSTEM on 02-16-2024 Bilirubin Ql (U) Negative Normal Negativemg/ dL [facility] [place] Auto SS Clarity (U) Clear (02/16/24 10:01 AM) Normal Clear [facility] UA Auto SS Color (U) Light-Yellow 1 (02/16/24 10:01 AM) Normal Yellow [facility] UA Auto SS Comment on above: Interpretive Data: M icroscopic readings are only performed on those samples that meet specific criteria set forth by [facility]. Epithelial cells.squamous Auto (Urine sed) [#/Area] 0-2 graded/HPF Invalid Interpretation Code [facility] UA Auto SS Glucose Ql (U) Negative Normal Negativemg/ dL [facility] UA Auto SS Hemoglobin Auto test strip (U) [Mass/Vol] 1+ mg/dL Invalid Interpretation Code Negativemg/ dL [facility] UA Auto SS Ketones Auto test strip Ql (U) Negative Normal Negativemg/ dL [facility] UA Auto SS Leukocyte esterase Auto test strip Ql (U) 75 Morgan/uL Morgan/uL Invalid Interpretation Code NegativeLeu /uL [facility] UA Auto SS Mucus Auto Ql (U) Trace graded/LPF Normal Negati vegra ded/LPF [facility] UA Auto SS Nitrite Auto test strip Ql (U) Negative Normal Negativemg/ dL [facility] UA Auto SS pH (U) 5.5 *NA* (02/16/24 10:01 AM) Invalid Interpretation Code 5.0 - 9.0 [facility] UA Auto SS Protein Ql (U) Negative Normal Negativemg/ dL [facility] UA Auto SS RBC Ql (U) 0-3 graded/HPF Normal 0-3graded/H PF [facility] UA Auto SS Specific gravity (U) [Rel density] 1.021 *NA* (02/16/24 10:01 AM) Invalid Interpretation Code 1.005 - 1.030 [facility] UA Auto SS Urobilinogen (U) [Mass/Vol] Negative Normal Negativemg/ dL [facility] UA Auto SS WBC Auto (Urine sed) [#/Area] 0-5 graded/HPF Normal 0-5graded/H PF [facility] UA Auto SS URINALYSISOrdered By: Kimberly Santos on 02-16-2024 UA Spec Desc Clean Catch (02/16/24 10:01 AM) Normal [facility] [place] Auto SS Urinalysis with Microon 02-03 Bilirubin Ql (U) Negative Normal Negative [facility] Comment on above: Performed By: #### 4 [id number] #### [facility] [address] [place] [address] Clarity (U) Clear Normal Clear [facility] Comment on above: Performed By: #### 4 [id number] #### [facility] [address] [place] [address] Color (U) Light-Yellow Normal Yellow [facility] Comment on above: Result Comment: Micr oscopic readings are only performed on those samples that meet specific criteria set forth by [facility]. Performed By: #### 4 [id number] #### [facility] [address] [place] [address] Epithelial cells.squamous Auto (Urine sed) [#/Area] 0-2 Invalid Interpretation Code [facility] Comment on above: Performed By: #### 4 [id number] #### [facility] [address] [place] [address] Glucose Ql (U) Negative Normal Negative [facility] Comment on above: Performed By: #### 4 [id number] #### [facility] [address] [place] [address] Hemoglobin Auto test strip (U) [Mass/Vol] 1+ mg/dL Abnormal Negative [facility] Comment on above: Performed By: #### 4 [id number] #### [facility] [address] [place] [address] Ketones Auto test strip Ql (U) Negative Normal Negative [facility] Comment on above: Performed By: #### 4 [id number] #### [facility] [address] [place] [address] Leukocyte esterase Auto test strip Ql (U) 75 Morgan/uL Abnormal Negative [facility] Comment on above: Performed By: #### 4 [id number] #### [facility] [address] [place] [address] Mucus Auto Ql (U) Trace Normal Negative [facility] Comment on above: Performed By: #### 4 [id number] #### [facility] [address] [place] [address] Nitrite Auto test strip Ql (U) Negative Normal Negative [facility] Comment on above: Performed By: #### 4 [id number] #### [facility] [address] [place] [address] pH (U) 5.5 [pH] Invalid Interpretation Code 5.0-9.0 [facility] Comment on above: Performed By: #### 4 [id number] #### [facility] [address] [place] [address] Protein Ql (U) Negative Normal Negative [facility] Comment on above: Performed By: #### 4 [id number] #### [facility] [address] [place] [address] RBC Ql (U) 0-3 Normal 0-3 [facility] Comment on above: Performed By: #### 4 [id number] #### [facility] [address] [place] [address] Specific gravity (U) [Rel density] 1.021 Invalid Interpretation Code 1.005-1.030 [facility] Comment on above: Performed By: #### 4 [id number] #### [facility] [address] [place] [address] Urobilinogen (U) [Mass/Vol] Negative Normal Negative [facility] Comment on above: Performed By: #### 4 [id number] #### [facility] [address] [place] [address] WBC Auto (Urine sed) [#/Area] 0-5 Normal 0-5 [facility] Comment on above: Performed By: #### 4 [id number] #### [facility] [address] [place] [address] Type of Urine collection method Clean Catch Normal [facility] Comment on above: Performed By: #### 4 [id number] #### [facility] [address] [place] [address] Office Visiton 02-15-2024 Follow-up visit [id number] Arielle Cardoso 1970 F Date Provider Department Center 02/15/2024 78888-HKHRLIEDISON KINCAID MICHAEL [facility] Family History Problem Relation Age of Onset Heart attack Father Family Status - Relation Status Age at Father Level of Service:37907 [place] OFFICE/OUTPATIENT NEW MODERATE MDM 45 MINUTES Normal [facility] ANES POSTPROC EVALon 023 ANES POSTPROC EVAL HNO ID: [id number] Author: Carlota Jeffrey MD Service: ? Author Type: Anesthesiologist Type: Anesthesia Postprocedure Evaluation Filed: 08/25/2023 5:35 PM Note Text: POST ANESTHESIA EVALUATION NOTE : 1970 Procedure Summary Date: 08/25/23 Room / Location: Gastroenterology Anesthesia Start: 1444 Anesthesia Stop: 1552 Procedure: EGD - THERAPEUTIC, EUS, OR TUBE INTERVENTIONS Diagnosis: Gastroparesis (OTHER) Scheduled Providers: Maqrues Bradley MD; Carlota Jeffrey MD; Vanessa Mcmillan APRN.CATHODE MAKER Responsible Provider: Carlota Jeffrey MD Anesthesia Type: [...] August 25, 2023 TIME: 5:35 PM CSN: [id number] Normal [facility] ANES PRE-OPon 08-25-2023 ANES PRE-OP HNO ID: [id number] Author: Carlota Jeffrey MD Service: ? Author [...] August 25, 2023 TIME: 11:46 AM CSN: [id number] Normal [facility] HISTORY PHYSICALon HISTORY PHYSICAL HNO ID: [id number] Author: Gavi Bourgeois MD Service: General Surgery [...] DATE: August 25, 2023 TIME: 6:57 AM [facility] NURSING PROGon 08-25-2023 NURSING PROG HNO ID: [id number] Author: Melody Walter RN Service: Nursing Author [...] None Electronically Signed By: Melody Walter RN Normal [facility] NURSING PROG HNO ID: [id number] Author: Truhan Melanie, Pamela, RN Service: ? Author Type: Registered Nurse [...] By: Pamela Navarro RN In Department: [facility]GEN[facility] CONSTANTINO CARDOSO ([id number]) 1970 F Date Time Provider Department 07/22/23 EVELYN BLACK GENBMI During your visit today, we recorded the following information about you: Evelyn Black RN 07/22/2023 3:03 PM Signed BMI SPECIALTY [...] Status:Closed by EVELYN BLACK on 07/22/23 Normal [facility] ANES POSTPROC EVALon 023 ANES POSTPROC EVAL HNO ID: [id number] Author: Sly Carter MD Service: ? Author [...] Scheduled Providers: Marques Bradley MD; Amanda Bernard APRN.CATHODE MAKER; Sly Carter MD Responsible Provider: Sly Carter [...] July 14, 2023 TIME: 12:26 PM CSN: [id number] Normal [facility] ANES PRE-OPon 07-14-2023 ANES PRE-OP HNO ID: [id number] Author: Sly Carter MD Service: ? Author Type: Anesthesiologist Type: Anesthesia Preprocedure Evaluation Filed: 07/14/2023 9:19 AM Note Text: ANESTHESIOLOGY DAY OF SURGERY NOTE : 1970 Procedure Information Date/Time: 07/14/23929 Scheduled providers: Marques Bradley MD; Amanda Bernard APRN.CATHODE MAKER; Sly Carter MD Procedure: EGD - THERAPEUTIC, [...] Time BP 137/87 07/14/23 0834 Pulse 66 07/14/23 0834 Resp Temp 36.4 ?C (97.5 ?F) 07/14/2334 SpO2 97 % 07/14/23833 Outpatient Medications as [...] July 14, 2023 TIME: 9:11 AM CSN: [id number] Normal [facility] EGD - THERAPEUTIC, EUS, OR T UBE INTERVENTIONSon 07-14-2023 [facility] HISTORY PHYSICALon 3 HISTORY PHYSICAL HNO ID: [id number] Author: Raúl Quintero MD Service: General Surgery [...] medications for this visit. 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 Mehrdad Carter paged : Patient Constantino Cardoso in post bed 10: Complaining of 10/10 abdominal pain (gas), mild nausea. Any further orders? Thanks! Mari Spaulding RN BSN [facility] NURSING PROG HNO ID: [id number] Author: Mónica Spaulding RN Service: Nursing Author [...] Electronically Signed By: Mónica Spaulding RN BSN [facility] NURSING PROG HNO ID: [id number] Author: Candace Jaramillo RN Service: ? Author [...] Candace Jaramillo RN In Department: GASTROENTEROLOGY Normal [facility] SURGICAL PATHOLOGYon 023 ADDENDUM 1: [facility] Comment on above: Order Comment: Speci men Type: TISSUE SPECIMENOrdering Facility: [facility] Address: [address] [place] [address] Result Comment: Give n the background of chronic gastritis a Helicobacter pylori immunostain was performed on block A and is negative for Helicobacter pylori organisms. AEB 07/20/2023 Laboratory Developed Test (LDT) Disclaimer: Performance characteristics of immunohistochemical, immunofluorescent and chromogenic in-situ hybridization tests have been determined by the performing laboratory within [facility]???s [facility] ([facility], [facility], [facility], [facility], [facility], [facility], or [facility]) in a manner consistent with CLIA [...] at 9:30 AM Performed By: #### S ####[facility] LABCLIA [id number] [place] [address] [place] CASE REPORT Normal [facility] Comment on above: Order Comment: Speci men Type: TISSUE SPECIMENOrdering Facility: [facility] Address: [address] [place] [address] Result Comment: Surg [facility] Pathology Report Case: [id number] Authorizing Provider: Marques Bradley MD Collected: 07/14/2023 10:42 AM Ordering Location: Gastroenterology Received: 07/14/2023 07:34 PM Pathologist: Marilou Zacarias MD Specimen: STOMACH BIOPSY, R/O H.Pylori Performed By: #### S ####[facility] LABCLIA [id number] [address] [place] DIAGNOSIS COMMENT Immunohistochemical stain for Helicobacter pylori is pending and will be reported as an addendum. Normal [facility] Comment on above: Order Comment: Speci men Type: TISSUE SPECIMENOrdering Facility: [facility] Address: [address] [place] [address] Performed By: #### S ####[facility] LABCLIA [id number] [address] [place] FINAL DIAGNOSIS Normal [facility] Comment on above: Order Comment: Speci men Type: TISSUE SPECIMENOrdering Facility: [facility] Address: [address] [place] [address] Result Comment: Velma james, biopsy: - Chronic inactive gastritis. See comment. AEB/dkm 07/18/2023 Performed By: #### S ####[facility] LABCLIA [id number] [address] [place] FINAL PERFORMING LAB Normal [facility] Comment on above: Order Comment: Speci men Type: TISSUE SPECIMENOrdering Facility: [facility] Address: [address] [place] [address] Result Comment: Diag nostic interpretation performed at [facility], [facility] [place] [address] CLIA# [id number] Sound Installation Worker: Maurisio Ritchie M.D. Performed By: #### S ####[facility] LABCLIA [id number] [address] [place] GROSS DESCRIPTION Normal [facility] Comment on above: Order Comment: Speci men Type: TISSUE SPECIMENOrdering Facility: [facility] Address: [address] [place] [address] Result Comment: Velma JAMES BIOPSY Received in formalin are two pieces of hager, soft tissue aggregating to 0.5 x 0.2 x 0.2 cm. Totally submitted in one cassette. Two Gross examination performed at [facility], [address] [place] [address] KK July 14, 2023 11:10 PM Performed By: #### S ####[facility] LABCLIA [id number] [place] [address] [place] Lipase Levelon 06-06-2023 Lipase [Catalytic activity/Vol] 33 U/L Normal 13-58 [facility] Comment on above: Performed By: #### [id number] #### [facility] [address] [place] [address] Magda 05-27-2023 CNPN Telephone (GENBMI) CONSTANTINO CARDOSO ([id number]) 1970 F Date Time Provider Department 05/27/23 EVELYN BLACK [facility] During your visit today, we recorded [...] Status:Closed by EVELYN BLACK on 05/27/23 Normal [facility] NM GASTRIC EMPTYING SOLIDon 05-26-2023 NM GASTRIC EMPTYING SOLID * * *Final Report* * * DATE OF EXAM: May 26 2023 11:11AM [facility] 0017 - NM GASTRIC EMPTYING SOLID / [...] RATE OF GASTRIC EMPTYING OF SOLID MEAL. Folder Seamer Automatic: MELINDA Transcribe Date/Time: May 26 2023 11:18A Dictated by : SILVANO WELSH MD This examination was interpreted and the report reviewed and electronically signed by: SILVANO WELSH MD on May 26 2023 11:18AM EST [id number] Normal [facility] CNNURSEon 05-25-2023 CNNURSE Nurse Visit (GASTMN) CONSTANTINO CARDOSO ([id number]) 1970 F Date Time Provider Department 05/25/23 8:30 AM NURSE GI LAB 2 GASTMN During your visit today, we recorded the following information about you: Pedro Gonzalez LPN 05/25/2023 4:15 PM Signed Name: Constantino Cardoso CCF#: [id number] Date: 05/25/2023 ESOPHAGEAL MANOMETRY TEST Indication: Nausea [...] .Pedro Gonzalez LPN Referring Provider: MARQUES BRADLEY [[id number]] Allergies As of Date: 05/25/2023 Noted Allergy Reaction FLEXERIL (CYCLOBENZAPRINE) 04/28/2018 7 - Swelling PENICILLIN 04/28/2018 7 - Swelling Date Reviewed: 05/06/2023 Reviewed by: Judy Michaels MA - Fully Assessed Reason for Visit: Procedure [88] Cmt: Manometry Esophageal Visit Diagnosis:Nausea [R11.0] Order(s):MANOMETRY ESOPHAGEAL [23706JDE] Order #: [id number] Prescriptions as of 05/25/2023 - dicyclomine (BENTYL) [...] Encounter Status:Closed by PEDRO GONZALEZ on 05/25/23 [facility] CNPN Telephone (GENBMI) ARIELLE CARDOSOCHRIS ([id number]) 1970 F Date Time Provider Department 05/16/23 EVELYN BLACK GENBMI During your visit today, [...] Encounter Status:Closed by EVELYN BLACK on 05/16/23 [facility] CNOVon 05-06-2023 CNOV Office Visit (GENBMI ) CONSTANTINO CARDOSO ([id number]) 1970 F Date Time Provider Department 05/06/23 8:50 AM MARQUES BRADLEY GENBMI During your visit today, we recorded [...] Surgical Endoscopy Consultation May 06, 2023 Constantino Maury 52 year old This consult was requested by Guillermo Carbajal and my final recommendations will be communicated to the requesting health care provider by way of the shared medical record for internal providers or letter via the [employer] for external providers. Chief Complaint: [...] Time: 8:15 AM Referring Provider: IMER CHERRY [[id number]] Allergies As of Date: 05/06/2023 Noted Allergy Reaction (more content not included)... Normal [facility] CONSTANTINO CARDOSO ([id number]) 1970 F Date Time Provider Department 05/02/23 EVELYN BLACK During your visit today, we recorded the following information about you: Evelyn Black, RN 05/04/2023 1:55 PM Addendum BMI SPECIALTY CARE COORDINATION TELEPHONE ENCOUNTER Chief complaint AND duration dysphagia. Type of procedure: hernia repair hiatal with Dr. MORTENSEN in [place] February of 2019. Sending OP notes Nursing assessment (subjective/objective) . pain in chest area and getting worse, hard to breathe c/o nausea and oral intolerance, using miralax for BM Went to [place] ED March 2023 who told her she needed a stent in her heart..but her c/o were difficulty swallowing and sent pt home and referred her to [facility] and was admitted for almost a [...] HHR a year later @ OSH in [place] Recommendation: appt after records obtained, encouraged small [...] Encounter Status:Closed by EVELYN BLACK on 05/02/23 [facility] Magda 04-26-2023 REJIN Telephone (Whisher) CONSTANTINO [id number]) 1970 F Date Time Provider Department 04/26/23 EVELYN BLACKI During your visit today, we [...] obesity (HCC) [E66.01] 04/28/2018 Encounter Status:Closed by EEVLYN BLACK on 04/26/23 [facility] 04-18-2023 CNPN Telephone (GENBMI) CONSTANTINO CARDOSO ([id number]) 1970 F Date Time Provider Department 04/18/23 EVELYN BLACK During your visit today, we [...] Ma - Fully Assessed 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 [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] Prescriptions as of 04/18/2023 [...] Encounter Status:Closed by EVELYN BLACK on 04/18/23 [facility]-07-2023 [facility]STSP[facility] CONSTANTINO CARDOSO ([id number]) 1970 F Date Time Provider Department 04/07/23 GUILLERMO MARTINEZ [facility] During your visit today, we recorded the following information about you: Yancy Lopez 04/07/2023 1:16 PM Signed Referral rec'Jett Chisholm 04/11/2023 1:01 PM Signed Records are in [...] Encounter Status:Closed by YANCY LOPEZ on 04/07/23 [facility] NM gastric emptying studyon 03-31-2023 NM gastric emptying study [facility] [place] [address] Nuclear Medicine Report Signed Patient: Constantino Cardoso MR#: [id number] : 1970 Acct:[id number] Age/Sex: 52 / F ADM Date: 03/26/23 Loc: Room: [address] [place] [address] Type: ADM IN Attending Dr: Deann Montalvo [...] Samuel Stone M.D.03/31/2023 10:03 AM Dictation Location: [place] [address] Transcribed By: [facility] 03/31/23 100 Dictated By: Samuel Stone DO 03/31/23 0956 Signed By: 03/31/23 1003 [facility] Comprehensive Metabolic Pane miranda 03-29-2023 Albumin [Mass/Vol] 3.8 g/dL Normal 3.5-5.7 [facility] Comment on above: Performed By: #### C STELLA, CMP #### [facility] [address] Albumin/Globulin [Mass ratio] 1.4 {ratio} Normal [facility] Comment on above: Performed By: #### C BCNO, CMP #### [facility] [address] ALP [Catalytic activity/Vol] 102 U/L Normal 34-104 [facility] Comment on above: Performed By: #### C BCNO, CMP #### [facility] [address] ALT [Catalytic activity/Vol] 10 U/L Normal 7-52 [facility] Comment on above: Performed By: #### C BCTED, CMP #### [facility] [address] Anion gap [Moles/Vol] 10.4 mmol/L Normal 6.0-15.0 [facility] Comment on above: Performed By: #### C BCNO, CMP #### [facility] [address] AST [Catalytic activity/Vol] 14 U/L Normal 13-39 [facility] Comment on above: Performed By: #### C BCTED, CMP #### [facility] [address] [place] [address] [place] Bilirubin [Mass/Vol] 0.5 mg/dL Normal 0.3-1.0 [facility] Comment on above: Performed By: #### C BCNO, CMP #### [facility] [address] [place] [address] [place] Calcium [Mass/Vol] 9.0 mg/dL Normal 8.6-10.3 [facility] Comment on above: Performed By: #### C BCNO, CMP #### [facility] [address] [place] [id number] [place] Chloride [Moles/Vol] 103 mmol/L Normal 98-107 [facility] Comment on above: Performed By: #### C BCNO, CMP #### [facility] [address] CO2 [Moles/Vol] 28.4 mmol/L Normal 21.0-31.0 [facility] Comment on above: Performed By: #### C STELLA, CMP #### [facility] [address] Creatinine [Mass/Vol] 0.67 mg/dL Normal 0.60-1.20 [facility] Comment on above: Performed By: #### C STELLA, CMP #### [address] Creatinine Clr Calc Pharmacy 106.18 [facility] Comment on above: Result Comment: PERF ORMED BY: [place] [address] PATHOLOGIST INSTRUCTIONAL SUPPORT SPECIALIST ROOSEVELT KEYES M.D. Performed By: #### C STELLA, CMP #### [address] GFR/1.73 sq M.predicted MDRD (S/P/Bld) [Vol rate/Area] mL/min/{1.73_m2} [facility] Comment on above: Performed By: #### C STELLA, CMP #### [address] Globulin (S) [Mass/Vol] 2.7 g/dL [facility] Comment on above: Performed By: #### C STELLA, CMP #### [address] Glucose [Mass/Vol] 96 mg/dL Normal 70-100 [facility] Comment on above: Result Comment: [place] Glucose Reference Range is dependent on time and content of last meal. Glucose of more than 200 mg/dL in a nonstressed, ambulatory subject supports the diagnosis of Diabetes Mellitus. ADA recommended reference range Performed By: #### C STELLA, CMP #### [address] Potassium [Moles/Vol] 3.8 mmol/L Normal 3.5-5.1 [facility] Comment on above: Performed By: #### C BCNO, CMP #### [facility] [address] Protein [Mass/Vol] 6.5 g/dL Normal 6.4-8.9 [facility] Comment on above: Performed By: #### C BCNO, CMP #### [facility] [address] Sodium [Moles/Vol] 138 mmol/L Normal 136-145 [facility] Comment on above: Performed By: #### C BCNO, CMP #### [facility] [address] Urea nitrogen [Mass/Vol] 8 mg/dL Normal 7-25 [facility] Comment on above: Performed By: #### C BCNO, CMP #### [facility] [address] [place] esophagus ugion 3 [place] esophagus ugi [facility] Main [place] [address] [place] [address] Fluoroscopy Report Signed Patient: Constantino Cardoso MR#: [id number] : 1970 Acct:[id number] Age/Sex: 52 / F ADM Date: 03/26/23 Loc: Room: [address] [place] [address] Type: ADM IN Attending Dr: Deann Montalvo MD Copies to: MD Deann Blue MD Ordering Provider: Renny Gan MD Date of Service: 03/29/23 FL/FL esophagus ugi: NAUSEA DOUBLE CONTRAST UPPER GI SERIES CLINICAL HISTORY: Nausea vomiting. History of Ramiro fundoplication. COMPARISON: None TECHNIQUE: Double contrast upper GI series was performed. Cumulative Air Kerma in mGy: 305.03 mGy FINDINGS: Patient Attendant image demonstrates no acute findings. The esophagus [...] Bateman Jr., D.O.03/29/2023 1:23 PM Dictation Location: [place] [address] Transcribed By: [facility] 03/29/23 1323 Dictated By: Tiburcio Bateman Jr, DO 03/29/23 1317 Signed By: 03/29/23 1323 Normal [facility] Hemogram CBC Without Diffon 03-29-2023 Erythrocyte distribution width (RBC) [Ratio] 13.4 % Normal 11.9-15.3 [facility] Comment on above: Performed By: #### C STELLA, CMP #### [address] Hematocrit (Bld) [Volume fraction] 35.4 % Normal 34.0-46.4 [facility] Comment on above: Performed By: #### C STELLA, CMP #### [address] Hemoglobin (Bld) [Mass/Vol] 12.0 g/dL Normal 11.8-15.4 [facility] Comment on above: Performed By: #### C STELLA, CMP #### [address] MCH (RBC) [Entitic mass] 29.2 pg Normal 24.7-34.3 [facility] Comment on above: Performed By: #### C STELLA, CMP #### [facility] [address] MCV (RBC) [Entitic vol] 86.0 fL Normal 80-100 [facility] Comment on above: Performed By: #### C STELLA, CMP #### [facility] [address] Mean Corpuscular HGB Conc 33.9 g/dL Normal 32.0-35.0 [facility] Comment on above: Performed By: #### C STELLA, CMP #### [address] Platelet mean volume (Bld) [Entitic vol] 7.6 fL Normal 6.3-10.7 [facility] Comment on above: Result Comment: PERF ORMED BY: [place] [address] PATHOLOGIST INSTRUCTIONAL SUPPORT SPECIALIST ROOSEVELT KEYES M.D. Performed By: #### C STELLA, CMP #### [address] Platelets (Bld) [#/Vol] 288 10*3/uL Normal 150-450 [facility] Comment on above: Performed By: #### C STELLA, CMP #### [address] RBC (Bld) [#/Vol] 4.11 10*6/uL Normal 3.60-5.00 [facility] Comment on above: Performed By: #### C STELLA, CMP #### [address] WBC (Bld) [#/Vol] 6.5 10*3/uL Normal 3.8-11.6 [facility] Comment on above: Performed By: #### C STELLA, CMP #### [place] [address] [place] XR abdomen min 2Von 03-28-20 23 XR abdomen min 2V [facility] Main [place] [address] [place] [address] XRay Report Signed Patient: Constantino Cardoso MR#: [id number] : 1970 Acct:[id number] Age/Sex: 52 / F ADM Date: 03/26/23 Loc: Room: [address] [place] [address] Type: ADM IN Attending Dr: Deann Montalvo [...] Bateman Jr., D.ONeo03/28/2023 12:24 PM Dictation Location: [place] [address] Transcribed By: [facility] 03/28/23 1224 Dictated By: Tiburcio Bateman Jr, DO 03/28/23 1223 Signed By: 03/28/23 1224 Normal [facility] Complete Blood Count Auto Di ffon 03-27-2023 Basophils (Bld) [#/Vol] 0.0 10*3/uL Normal 0.0-0.2 [facility] Comment on above: Result Comment: PERF ORMED BY: [place] [address] PATHOLOGIST INSTRUCTIONAL SUPPORT SPECIALIST ROOSEVELT KEYES M.D. Performed By: #### C BC #### [place] [address] [place] Basophils/100 WBC (Bld) 0.5 % Normal . [facility] Comment on above: Performed By: #### C BC #### [place] [address] [place] Eosinophils (Bld) [#/Vol] 0.2 10*3/uL Normal 0.0-0.45 [facility] Comment on above: Performed By: #### C BC #### [place] [address] [place] Eosinophils/100 WBC (Bld) 4.7 % Normal . [facility] Comment on above: Performed By: #### C BC #### [address] [place] [address] [place] Erythrocyte distribution width (RBC) [Ratio] 13.6 % Normal 11.9-15.3 [facility] Comment on above: Performed By: #### C BC #### [address] Hematocrit (Bld) [Volume fraction] 34.1 % Normal 34.0-46.4 [facility] Comment on above: Performed By: #### C BC #### [address] Hemoglobin (Bld) [Mass/Vol] 11.4 g/dL Low 11.8-15.4 [facility] Comment on above: Performed By: #### C BC #### [address] Lymphocytes (Bld) [#/Vol] 1.3 10*3/uL Normal 1.00-4.8 [facility] Comment on above: Performed By: #### C BC #### [address] Lymphocytes/100 WBC (Bld) 32.8 % Normal . [facility] Comment on above: Performed By: #### C BC #### [address] MCH (RBC) [Entitic mass] 28.9 pg Normal 24.7-34.3 [facility] Comment on above: Performed By: #### C BC #### [address] MCV (RBC) [Entitic vol] 86.0 fL Normal 80-100 [facility] Comment on above: Performed By: #### C BC #### [address] Mean Corpuscular HGB Conc 33.6 g/dL Normal 32.0-35.0 [facility] Comment on above: Performed By: #### C BC #### [address] Monocytes (Bld) [#/Vol] 0.3 10*3/uL Normal 0.0-0.8 [facility] Comment on above: Performed By: #### C BC #### [facility] [address] Monocytes/100 WBC (Bld) 7.7 % Normal . [facility] Comment on above: Performed By: #### C BC #### [facility] [address] Neutrophils (Bld) [#/Vol] 2.1 10*3/uL Normal 1.8-7.7 [facility] Comment on above: Performed By: #### C BC #### [facility] [address] Neutrophils/100 WBC (Bld) 54.3 % Normal . [facility] Comment on above: Performed By: #### C BC #### [facility] [address] NRBC% 0.1 /100{WBC} Normal 0-0.5 [facility] Comment on above: Performed By: #### C BC #### [facility] [address] Platelet mean volume (Bld) [Entitic vol] 7.8 fL Normal 6.3-10.7 [facility] Comment on above: Performed By: #### C BC #### [facility] [address] [place] [address] [place] Platelets (Bld) [#/Vol] 291 10*3/uL Normal 150-450 [facility] Comment on above: Performed By: #### C BC #### [facility] [address] [place] [address] [place] RBC (Bld) [#/Vol] 3.97 10*6/uL Normal 3.60-5.00 [facility] Comment on above: Performed By: #### C BC #### [facility] [address] WBC (Bld) [#/Vol] 3.9 10*3/uL Normal 3.8-11.6 [facility] Comment on above: Performed By: #### C BC #### [facility] [address] Comprehensive Metabolic Pane miranda 03-27-2023 Albumin [Mass/Vol] 3.5 g/dL Normal 3.5-5.7 [facility] Comment on above: Performed By: #### H EPATIC, CBC, BMP, LIPASE #### [facility] [address] Albumin/Globulin [Mass ratio] 1.4 {ratio} Normal [facility] Comment on above: Performed By: #### H EPATIC, CBC, BMP, LIPASE #### [address] ALP [Catalytic activity/Vol] 91 U/L Normal 34-104 [facility] Comment on above: Performed By: #### H EPATIC, CBC, BMP, LIPASE #### [address] ALT [Catalytic activity/Vol] 10 U/L Normal 7-52 [facility] Comment on above: Performed By: #### H EPATIC, CBC, BMP, LIPASE #### [address] Anion gap [Moles/Vol] 6.9 mmol/L Normal 6.0-15.0 [facility] Comment on above: Performed By: #### H EPATIC, CBC, BMP, LIPASE #### [address] AST [Catalytic activity/Vol] 13 U/L Normal 13-39 [facility] Comment on above: Performed By: #### H EPATIC, CBC, BMP, LIPASE #### [address] Bilirubin [Mass/Vol] 0.5 mg/dL Normal 0.3-1.0 [facility] Comment on above: Performed By: #### H EPATIC, CBC, BMP, LIPASE #### [address] Calcium [Mass/Vol] 8.6 mg/dL Normal 8.6-10.3 [facility] Comment on above: Performed By: #### H EPATIC, CBC, BMP, LIPASE #### [facility] [address] [place] [address] Chloride [Moles/Vol] 109 mmol/L High 98-107 [facility] Comment on above: Performed By: #### H EPATIC, CBC, BMP, LIPASE #### [address] CO2 [Moles/Vol] 28.9 mmol/L Normal 21.0-31.0 [facility] Comment on above: Performed By: #### H EPATIC, CBC, BMP, LIPASE #### [address] Creatinine [Mass/Vol] 0.72 mg/dL Normal 0.60-1.20 [facility] Comment on above: Performed By: #### H EPATIC, CBC, BMP, LIPASE #### [address] Creatinine Clr Calc Pharmacy 97.02 [facility] Comment on above: Performed By: #### H EPATIC, CBC, BMP, LIPASE #### [address] GFR/1.73 sq M.predicted MDRD (S/P/Bld) [Vol rate/Area] mL/min/{1.73_m2} [facility] Comment on above: Performed By: #### H EPATIC, CBC, BMP, LIPASE #### [address] Globulin (S) [Mass/Vol] 2.5 g/dL [facility] Comment on above: Performed By: #### H EPATIC, CBC, BMP, LIPASE #### [address] Glucose [Mass/Vol] 104 mg/dL High 70-100 [facility] Comment on above: Result Comment: [facility] Glucose Reference Range is dependent on time and content of last meal. Glucose of more than 200 mg/dL in a nonstressed, ambulatory subject supports the diagnosis of Diabetes Mellitus. ADA recommended reference range Performed By: #### H EPATIC, CBC, BMP, LIPASE #### [address] Potassium [Moles/Vol] 3.8 mmol/L Normal 3.5-5.1 [facility] Comment on above: Performed By: #### H EPATIC, CBC, BMP, LIPASE #### [address] Protein [Mass/Vol] 6.0 g/dL Low 6.4-8.9 [facility] Comment on above: Performed By: #### H EPATIC, CBC, BMP, LIPASE #### [address] Sodium [Moles/Vol] 141 mmol/L Normal 136-145 [facility] Comment on above: Performed By: #### H EPATIC, CBC, BMP, LIPASE #### [address] Urea nitrogen [Mass/Vol] 10 mg/dL Normal 7-25 [facility] Comment on above: Performed By: #### H EPATIC, CBC, BMP, LIPASE #### [address] Lipaseon 03-27-2023 Lipase [Catalytic activity/Vol] 14.0 U/L Normal 11.0-82.0 [facility] Comment on above: Result Comment: PERF ORMED BY: [place] [address] PATHOLOGIST INSTRUCTIONAL SUPPORT SPECIALIST ROOSEVELT KEYES M.D. Performed By: #### H EPATIC, CBC, BMP, LIPASE #### [address] Magnesiumon 03-27-2023 Magnesium [Mass/Vol] 1.8 mg/dL Low 1.9-2.7 [facility] Comment on above: Performed By: #### H EPATIC, CBC, BMP, LIPASE #### [place] [address] [place] [address] [facility] [address] angio abdomen pelvison CT angio abdomen pelvis [facility] [place] [address] [place] [id number] Scan Report Signed Patient: Constantino Cardoso MR#: [id number] : 1970 Acct:[id number] Age/Sex: 52 / F ADM Date: 03/26/23 Loc: Room: [address] [place] [address] Type: ADM IN Attending Dr: Raf Steward [...] Nora Benites M.D.03/26/2023 9:41 AM Dictation Location: [place] [address] Transcribed By: [facility] 03/26/23940 Dictated By: Nora Benites II, MD 03/26/2335 Signed By: 03/26/23940 [facility] CT angio cheston 03-26-2023 CT angio chest [facility] Main [place] [address] [place] [address] CT Scan Report Signed Patient: Constantino Cardoso MR#: [id number] : 1970 Acct:[id number] Age/Sex: 52 / F ADM Date: 03/26/23 Loc: Room: [address] [place] [address] Type: ADM IN Attending Dr: Raf Steward [...] Nora Benites M.D.03/26/2023 9:34 AM Dictation Location: [place] [address] Transcribed By: [facility] 03/26/23933 Dictated By: Nora Benites II, MD 03/26/23929 Signed By: 03/26/23933 [facility] Comprehensive Metabolic Pane miranda 03-26-2023 Albumin [Mass/Vol] 3.8 g/dL Normal 3.5-5.7 [facility] Comment on above: Performed By: #### P ORS #### [address] Albumin/Globulin [Mass ratio] 1.6 {ratio} [facility] Comment on above: Performed By: #### P ORS #### [address] ALP [Catalytic activity/Vol] 105 U/L High 34-104 [facility] Comment on above: Performed By: #### P ORS #### [address] ALT [Catalytic activity/Vol] 11 U/L Normal 7-52 [facility] Comment on above: Performed By: #### P ORS #### [address] Anion gap [Moles/Vol] 9.7 mmol/L Normal 6.0-15.0 [facility] Comment on above: Performed By: #### P ORS #### [address] AST [Catalytic activity/Vol] 14 U/L Normal 13-39 [facility] Comment on above: Performed By: #### P ORS #### [address] Bilirubin [Mass/Vol] 0.4 mg/dL Normal 0.3-1.0 [facility] Comment on above: Performed By: #### P ORS #### [facility] [address] Calcium [Mass/Vol] 8.6 mg/dL Normal 8.6-10.3 [facility] Comment on above: Performed By: #### P ORS #### [facility] [address] Chloride [Moles/Vol] 107 mmol/L Normal 98-107 [facility] Comment on above: Performed By: #### P ORS #### [facility] [address] CO2 [Moles/Vol] 25.3 mmol/L Normal 21.0-31.0 [facility] Comment on above: Performed By: #### P ORS #### [facility] [address] Creatinine [Mass/Vol] 0.76 mg/dL Normal 0.60-1.20 [facility] Comment on above: Performed By: #### P ORS #### [facility] [address] Creatinine Clr Calc Pharmacy 92.46 [facility] Comment on above: Performed By: #### P ORS #### [address] GFR/1.73 sq M.predicted MDRD (S/P/Bld) [Vol rate/Area] mL/min/{1.73_m2} [facility] Comment on above: Performed By: #### P ORS #### [facility] [address] [place] [address] [place] Globulin (S) [Mass/Vol] 2.4 g/dL [facility] Comment on above: Performed By: #### P ORS #### [facility] [address] Glucose [Mass/Vol] 122 mg/dL High 70-100 [facility] Comment on above: Result Comment: [facility] Glucose Reference Range is dependent on time and content of last meal. Glucose of more than 200 mg/dL in a nonstressed, ambulatory subject supports the diagnosis of Diabetes Mellitus. ADA recommended reference range Performed By: #### P ORS #### [address] Potassium [Moles/Vol] 4.0 mmol/L Normal 3.5-5.1 [facility] Comment on above: Performed By: #### P ORS #### [address] Protein [Mass/Vol] 6.2 g/dL Low 6.4-8.9 [facility] Comment on above: Performed By: #### P ORS #### [address] Sodium [Moles/Vol] 138 mmol/L Normal 136-145 [facility] Comment on above: Performed By: #### P ORS #### [address] Urea nitrogen [Mass/Vol] 12 mg/dL Normal 7-25 [facility] Comment on above: Performed By: #### P ORS #### [address] Drug Screen,Urineon 03-26-20 23 Amphetamine Screen,Urine Negative Normal Negative [facility] Comment on above: Performed By: #### H EPATIC, CBC, BMP, LIPASE #### [address] Barbiturate Screen,Urine Negative Normal Negative [facility] Comment on above: Performed By: #### H EPATIC, CBC, BMP, LIPASE #### [place] [address] [place] Benzodiazepines Screen,Urine Negative Normal Negative [facility] Comment on above: Performed By: #### H EPATIC, CBC, BMP, LIPASE #### [address] Cannabinoid Screen,Urine Negative Normal Negative [facility] Comment on above: Result Comment: Thes e are unconfirmed results and should not be used for legal purposes. Drug Cut-Off Concentration: AMPH 1000 ng/mL HAWA 200 ng/mL ELSA 200 ng/mL COCM 300 ng/mL OP 300 ng/mL PCP 25 ng/mL THC 20 ng/mL PERFORMED BY: [place] [address] PATHOLOGIST INSTRUCTIONAL SUPPORT SPECIALIST ROOSEVELT KEYES M.D. Performed By: #### H EPATIC, CBC, BMP, LIPASE #### [address] Cocaine Screen,Urine Negative Normal Negative [facility] Comment on above: Performed By: #### H EPATIC, CBC, BMP, LIPASE #### [address] Opiate Screen,Urine Positive High Negative [facility] Comment on above: Performed By: #### H EPATIC, CBC, BMP, LIPASE #### [address] Phencyclidine Screen,Urine Negative Normal Negative [facility] Comment on above: Performed By: #### H EPATIC, CBC, BMP, LIPASE #### [address] ECH echo transthoracicon ECH echo transthoracic [facility] Main [place] [address] [place] [address] Echocardiogram Signed Patient: Constantino Cardoso MR#: [id number] : 1970 Acct:[id number] Age/Sex: 52 / F ADM Date: 03/26/23 Loc: Room: [address] [place] [address] Type: ADM IN Attending Dr: Raf Steward MD Ordering Provider: Ron Fair MD Date of Service: 03/26/23 ECH/ECH echo transthoracic: chest pain Copies to: MD Holly Lieberman MD, [facility] BSA: 1.9 m2 BP: 155/86 mmHg HR: [...] 03/26/23 0909 Signed By: Holly Castro MD, [facility] 03/26/23 1148 Normal [facility] Hepatic Panelon 03-26-2023 Bilirubin,Indirect 0.3 mg/dL Normal [facility] Comment on above: Performed By: #### P ORS #### [facility] [address] Bilirubin.indirect [Mass/Vol] 0.10 mg/dL Normal 0.03-0.18 [facility] Comment on above: Performed By: #### P ORS #### [facility] [address] Lactic Acidon 03-26-2023 Lactate [Moles/Vol] 0.5 mmol/L Normal 0.5-2.2 [facility] Comment on above: Result Comment: PERF ORMED BY: [facility] [address] [place] [address] PATHOLOGIST INSTRUCTIONAL SUPPORT SPECIALIST ROOSEVELT KEYES M.D. Performed By: #### L ACTIC, HEPATIC, LIPASE, CMP, HS TROP, MG #### [facility] [address] [place] [address] Lipaseon 03-26-2023 Lipase [Catalytic activity/Vol] 8.0 U/L Low 11.0-82.0 [facility] Comment on above: Result Comment: PERF ORMED BY: [place] [address] PATHOLOGIST INSTRUCTIONAL SUPPORT SPECIALIST ROOSEVELT KEYES M.D. Performed By: #### P ORS #### [address] Magnesiumon 03-26-2023 Magnesium [Mass/Vol] 1.8 mg/dL Low 1.9-2.7 [facility] Comment on above: Performed By: #### P ORS #### [address] Porphyrins,Stoolon 3 Porphyrins,Stool Normal [facility] Comment on above: Result Comment: See report. Scanned copy available in EMR. PERFORMED BY: [place] [address] PATHOLOGIST INSTRUCTIONAL SUPPORT SPECIALIST ROOSEVELT KEYES M.D. Performed By: #### P ORS #### [address] Troponin I High Sensitivityo n 03-26-2023 Troponin I High Sensitivity 13.8 pg/mL Normal 0.0-15.0 [facility] Comment on above: Result Comment: PERF ORMED BY: [place] [address] PATHOLOGIST INSTRUCTIONAL SUPPORT SPECIALIST ROOSEVELT KEYES M.D. Performed By: #### H EPATIC, CBC, BMP, LIPASE #### [facility] [address] [place] [address] Troponin I High Sensitivity 14.1 pg/mL Normal 0.0-15.0 [facility] Comment on above: Result Comment: PERF ORMED BY: [place] [address] PATHOLOGIST INSTRUCTIONAL SUPPORT SPECIALIST ROOSEVELT KEYES M.D. Performed By: #### P ORS #### [place] [id number] [facility] Alanine aminotransferase [En zymatic activity/volume] in Serum or PlasmaOrdered By: Pete Thakkar on 03-23-2023 ALT [Catalytic activity/Vol] 11 U/L 7-52 [facility] Albumin [Mass/volume] in Ser um or Plasma by Bromocresol green (BCG) dye binding methoOrdered By: Pete Thakkar on 03-23-2023 Albumin BCG dye [Mass/Vol] 4.1 g/dL 3.5-5.7 [facility] Alkaline phosphatase [Enzyma tic activity/volume] in Serum or PlasmaOrdered By: Pete Thakkar on 03-23-2023 ALP [Catalytic activity/Vol] 115 U/L 34-104 [facility] Aspartate aminotransferase [ Enzymatic activity/volume] in Serum or PlasmaOrdered By: Pete Thakkar on 03-23-2023 AST [Catalytic activity/Vol] 15 U/L 13-39 [facility] Automated erythrocytes count in urine sediment (number/area)Ordered By: Pete Thakkar on 03-23-2023 RBC Auto (Urine sed) [#/Area] 0-1 [HPF] 0-4 [facility] Automated leukocytes count i n urine sediment (number/area)Ordered By: Pete Thakkar on 03-23-2023 WBC Auto (Urine sed) [#/Area] 0-1 [HPF] 0-4 [facility] Basic Metabolic Panelon 03-05 Anion gap [Moles/Vol] 10.1 mmol/L Normal 6.0-15.0 [facility] Comment on above: Performed By: #### H EPATIC, CBC, BMP, LIPASE #### [place] [id number] [facility] Calcium [Mass/Vol] 9.0 mg/dL Normal 8.6-10.3 [facility] Comment on above: Performed By: #### H EPATIC, CBC, BMP, LIPASE #### [facility] [address] [place] [address] [place] Chloride [Moles/Vol] 111 mmol/L High 98-107 [facility] Comment on above: Performed By: #### H EPATIC, CBC, BMP, LIPASE #### [facility] [address] CO2 [Moles/Vol] 24.5 mmol/L Normal 21.0-31.0 [facility] Comment on above: Performed By: #### H EPATIC, CBC, BMP, LIPASE #### [facility] [address] Creatinine [Mass/Vol] 0.72 mg/dL Normal 0.60-1.20 [facility] Comment on above: Performed By: #### H EPATIC, CBC, BMP, LIPASE #### [facility] [address] Creatinine Clr Calc Pharmacy 105.27 [facility] Comment on above: Performed By: #### H EPATIC, CBC, BMP, LIPASE #### [place] [address] [place] GFR/1.73 sq M.predicted MDRD (S/P/Bld) [Vol rate/Area] mL/min/{1.73_m2} [facility] Comment on above: Performed By: #### H EPATIC, CBC, BMP, LIPASE #### [address] Glucose [Mass/Vol] 79 mg/dL Normal 70-100 [facility] Comment on above: Result Comment: [facility] Glucose Reference Range is dependent on time and content of last meal. Glucose of more than 200 mg/dL in a nonstressed, ambulatory subject supports the diagnosis of Diabetes Mellitus. ADA recommended reference range Performed By: #### H EPATIC, CBC, BMP, LIPASE #### [facility] [address] Potassium [Moles/Vol] 3.6 mmol/L Normal 3.5-5.1 [facility] Comment on above: Performed By: #### H EPATIC, CBC, BMP, LIPASE #### [facility] [address] [place] [id number] [facility] Sodium [Moles/Vol] 142 mmol/L Normal 136-145 [facility] Comment on above: Performed By: #### H EPATIC, CBC, BMP, LIPASE #### [facility] [address] [place] [address] [place] Urea nitrogen [Mass/Vol] 24 mg/dL Normal 7-25 [facility] Comment on above: Performed By: #### H EPATIC, CBC, BMP, LIPASE #### [facility] [address] Basophils Auto (Bld) [#/Vol] Ordered By: Pete Thakkar on 03-23-2023 Basophils (Bld) [#/Vol] 0.1 10*3/uL 0.0-0.2 [facility] Basophils/100 WBC Auto (Bld) Ordered By: Pete Thakkar on 03-23-2023 Basophils/100 WBC (Bld) 1.0 % . [facility] Bilirubin Test strip Ql (U)O rdered By: Pete Thakkar on 03-23-2023 Bilirubin Ql (U) Negative Negative [facility] Bilirubin.direct [Mass/volum e] in Serum or PlasmaOrdered By: Pete Thakkar on 03-23-2023 Bilirubin.direct [Mass/Vol] 0.10 mg/dL 0.03-0.18 [facility] Bilirubin.total [Mass/volume ] in Serum or PlasmaOrdered By: Pete Thakkar on 03-23-2023 Bilirubin [Mass/Vol] 0.3 mg/dL 0.3-1.[address] [facility] [address] abdomen pelvis w conon CT abdomen pelvis w con [facility] Main [place] [address] [place] [address] CT Scan Report Signed Patient: Constantino Cardoso MR#: [id number] : 1970 Acct:[id number] Age/Sex: 52 / F ADM Date: 03/23/23 Loc: ER Room: Type: [facility] ER Attending Dr: Copies to: Pete [...] M.D.03/23/2023 7:47 AM Dictation Location: [place] [address] Transcribed By: ANDREA 03/23/2347 Dictated By: Columba Domínguez MD 03/23/23 0742 Signed By: 03/23/2347 [facility] Calcium [Mass/volume] in Ser um or PlasmaOrdered By: Pete Thakkar on 03-23-2023 Calcium [Mass/Vol] 9.0 mg/dL 8.6-10.3 [facility] Carbon dioxide, total [Moles /volume] in Serum or PlasmaOrdered By: Pete Thakkar on 03-23-2023 CO2 [Moles/Vol] 24.5 mmol/L 21.0-31.0 [facility] Chloride [Moles/volume] in S cristine or PlasmaOrdered By: Pete Thakkar on 03-23-2023 Chloride [Moles/Vol] 111 mmol/L 98-107 [facility] Color Auto (U)Ordered By: Shoaib Thakkar on 03-23-2023 Color (U) Yellow Yellow [facility] Complete Blood Count Auto Di ffon 03-23-2023 Basophils (Bld) [#/Vol] 0.1 10*3/uL Normal 0.0-0.2 [facility] Comment on above: Result Comment: PERF ORMED BY: [place] [address] PATHOLOGIST INSTRUCTIONAL SUPPORT SPECIALIST ROOSEVELT KEYES M.D. Performed By: #### H EPATIC, CBC, BMP, LIPASE #### [address] Basophils/100 WBC (Bld) 1.0 % Normal . [facility] Comment on above: Performed By: #### H EPATIC, CBC, BMP, LIPASE #### [address] Eosinophils (Bld) [#/Vol] 0.3 10*3/uL Normal 0.0-0.45 [facility] Comment on above: Performed By: #### H EPATIC, CBC, BMP, LIPASE #### [place] [address] [place] Eosinophils/100 WBC (Bld) 5.0 % Normal . [facility] Comment on above: Performed By: #### H EPATIC, CBC, BMP, LIPASE #### [place] [address] [place] Erythrocyte distribution width (RBC) [Ratio] 13.6 % Normal 11.9-15.3 [facility] Comment on above: Performed By: #### H EPATIC, CBC, BMP, LIPASE #### [address] Hematocrit (Bld) [Volume fraction] 35.7 % Normal 34.0-46.4 [facility] Comment on above: Performed By: #### H EPATIC, CBC, BMP, LIPASE #### [address] Hemoglobin (Bld) [Mass/Vol] 12.0 g/dL Normal 11.8-15.4 [facility] Comment on above: Performed By: #### H EPATIC, CBC, BMP, LIPASE #### [address] Lymphocytes (Bld) [#/Vol] 2.3 10*3/uL Normal 1.00-4.8 [facility] Comment on above: Performed By: #### H EPATIC, CBC, BMP, LIPASE #### [address] Lymphocytes/100 WBC (Bld) 36.1 % Normal . [facility] Comment on above: Performed By: #### H EPATIC, CBC, BMP, LIPASE #### [address] MCH (RBC) [Entitic mass] 29.2 pg Normal 24.7-34.3 [facility] Comment on above: Performed By: #### H EPATIC, CBC, BMP, LIPASE #### [address] MCV (RBC) [Entitic vol] 86.7 fL Normal 80-100 [facility] Comment on above: Performed By: #### H EPATIC, CBC, BMP, LIPASE #### [address] Mean Corpuscular HGB Conc 33.7 g/dL Normal 32.0-35.0 [facility] Comment on above: Performed By: #### H EPATIC, CBC, BMP, LIPASE #### [address] Monocytes (Bld) [#/Vol] 0.5 10*3/uL Normal 0.0-0.8 [facility] Comment on above: Performed By: #### H EPATIC, CBC, BMP, LIPASE #### [address] Monocytes/100 WBC (Bld) 16.44 % Normal 0.00-20.00 [facility] Comment on above: Performed By: #### H EPATIC, CBC, BMP, LIPASE #### [address] Monocytes/100 WBC (Bld) 7.7 % Normal . [facility] Comment on above: Performed By: #### H EPATIC, CBC, BMP, LIPASE #### [address] Neutrophils (Bld) [#/Vol] 3.2 10*3/uL Normal 1.8-7.7 [facility] Comment on above: Performed By: #### H EPATIC, CBC, BMP, LIPASE #### [address] Neutrophils/100 WBC (Bld) 50.2 % Normal . [facility] Comment on above: Performed By: #### H EPATIC, CBC, BMP, LIPASE #### [address] NRBC% 0.1 /100{WBC} Normal 0-0.5 [facility] Comment on above: Performed By: #### H EPATIC, CBC, BMP, LIPASE #### [address] Platelet mean volume (Bld) [Entitic vol] 7.6 fL Normal 6.3-10.7 [facility] Comment on above: Performed By: #### H EPATIC, CBC, BMP, LIPASE #### [address] Platelets (Bld) [#/Vol] 357 10*3/uL Normal 150-450 [facility] Comment on above: Performed By: #### H EPATIC, CBC, BMP, LIPASE #### [place] [address] [place] [address] [place] RBC (Bld) [#/Vol] 4.12 10*6/uL Normal 3.60-5.00 [facility] Comment on above: Performed By: #### H EPATIC, CBC, BMP, LIPASE #### [facility] [address] WBC (Bld) [#/Vol] 6.3 10*3/uL Normal 3.8-11.6 [facility] Comment on above: Performed By: #### H EPATIC, CBC, BMP, LIPASE #### [facility] [address] Creatinine [Mass/volume] in Serum or PlasmaOrdered By: Pete Thakkar on 03-23-2023 Creatinine [Mass/Vol] 0.72 mg/dL 0.60-1.20 [facility] Dipstick and Microscopicon 0 03-23-2023 Appearance (U) Clear Normal Clear [facility] Comment on above: Order Comment: Name Collection Type:: Clean-Voided Midstream Performed By: #### P ORS #### [facility] [address] [place] [address] [place] Bacteria,Urine 1+ High None Seen [facility] Comment on above: Order Comment: Name Collection Type:: Clean-Voided Midstream Performed By: #### P ORS #### [facility] [address] [place] [address] [place] Bilirubin,Urine Negative Normal Negative [facility] Comment on above: Order Comment: Name Collection Type:: Clean-Voided Midstream Performed By: #### P ORS #### [facility] [address] [place] [address] [place] Color (U) Yellow Normal Yellow [facility] Comment on above: Order Comment: Name Collection Type:: Clean-Voided Midstream Performed By: #### P ORS #### [facility] [address] [place] [address] [place] Glucose Ql (U) Normal Normal Normal [facility] Comment on above: Order Comment: Name Collection Type:: Clean-Voided Midstream Performed By: #### P ORS #### [facility] [address] [place] [address] [place] Hyaline Casts,Urine None Seen Normal 0-8 [facility] Comment on above: Order Comment: Name Collection Type:: Clean-Voided Midstream Result Comment: PERF ORMED BY: [place] [address] PATHOLOGIST INSTRUCTIONAL SUPPORT SPECIALIST ROOSEVELT KEYES M.D. Performed By: #### P ORS #### [address] Ketones Ql (U) Negative Normal Negative [facility] Comment on above: Order Comment: Name Collection Type:: Clean-Voided Midstream Performed By: #### P ORS #### [address] Leukocyte esterase Test strip Ql (U) Negative Normal Negative [facility] Comment on above: Order Comment: Name Collection Type:: Clean-Voided Midstream Performed By: #### P ORS #### [place] [address] [place] Nitrite,Urine Negative Normal Negative [facility] Comment on above: Order Comment: Name Collection Type:: Clean-Voided Midstream Performed By: #### P ORS #### [address] Occult Blood,Urine Trace High Negative [facility] Comment on above: Order Comment: Name Collection Type:: Clean-Voided Midstream Result Comment: PERF ORMED BY: [place] [address] PATHOLOGIST INSTRUCTIONAL SUPPORT SPECIALIST ROOSEVELT KEYES M.D. Performed By: #### P ORS #### [place] [address] [place] pH (U) 5.0 [pH] Normal 5.0-9.0 [facility] Comment on above: Order Comment: Name Collection Type:: Clean-Voided Midstream Performed By: #### P ORS #### [place] [address] [place] Protein,Urine Negative Normal Negative [facility] Comment on above: Order Comment: Name Collection Type:: Clean-Voided Midstream Performed By: #### P ORS #### [address] RBC LM.HPF (Urine sed) [#/Area] 0 /[HPF] Normal 0-4 [facility] Comment on above: Order Comment: Name Collection Type:: Clean-Voided Midstream Performed By: #### P ORS #### [address] Specificy [place],Urine 1.048 High 1.001-1.030 [facility] Comment on above: Order Comment: Name Collection Type:: Clean-Voided Midstream Performed By: #### P ORS #### [address] Squamous Epithelial Cell,Urine None Seen Normal 0-2 [facility] Comment on above: Order Comment: Name Collection Type:: Clean-Voided Midstream Performed By: #### P ORS #### [address] Urobilinogen,Urine Normal Normal Normal [facility] Comment on above: Order Comment: Name Collection Type:: Clean-Voided Midstream Performed By: #### P ORS #### [address] WBC LM.HPF (Urine sed) [#/Area] 0 /[HPF] Normal 0-4 [facility] Comment on above: Order Comment: Name Collection Type:: Clean-Voided Midstream Performed By: #### P ORS #### [place] [address] [place] Eosinophils Auto (Bld) [#/Vo l]Ordered By: Pete Thakkar on 03-23-2023 Eosinophils (Bld) [#/Vol] 0.3 10*3/uL 0.0-0.45 [facility] Eosinophils/100 WBC Auto (Bl d)Ordered By: Pete Thakkar on 03-23-2023 Eosinophils/100 WBC (Bld) 5.0 % . [facility] Erythrocyte distribution wid th Auto (RBC) [Ratio]Ordered By: Pete Thakkar on 03-23-2023 Erythrocyte distribution width (RBC) [Ratio] 13.6 % 11.9-15.3 [facility] Globulin Calc (S) [Mass/Vol] Ordered By: Pete Thakkar on 03-23-2023 Globulin (S) [Mass/Vol] 2.9 g/dL [facility] Glucose [Mass/volume] in Ser um or PlasmaOrdered By: Pete Thakkar on 03-23-2023 Glucose [Mass/Vol] 79 mg/dL 70-100 [facility] Comment on above: ADA recommended refe rence rangeRandom Glucose Reference Range is dependent on time and content of last meal. Glucose of more than 200 mg/dL in a nonstressed, ambulatory subject supports the diagnosis of Diabetes Mellitus. Hematocrit Auto (Bld) [Volum e fraction]Ordered By: Pete Thakkar on 03-23-2023 Hematocrit (Bld) [Volume fraction] 35.7 % 34.0-46.4 [facility] Hemoglobin [Mass/volume] in BloodOrdered By: Pete Thakkar on 03-23-2023 Hemoglobin (Bld) [Mass/Vol] 12.0 g/dL 11.8-15.4 [facility] Hepatic Panelon 03-23-2023 Albumin [Mass/Vol] 4.1 g/dL Normal 3.5-5.7 [facility] Comment on above: Performed By: #### H EPATIC, CBC, BMP, LIPASE #### [facility] [address] Albumin/Globulin [Mass ratio] 1.4 {ratio} Normal [facility] Comment on above: Performed By: #### H EPATIC, CBC, BMP, LIPASE #### [facility] [address] [place] [id number] [place] ALP [Catalytic activity/Vol] 115 U/L High 34-104 [facility] Comment on above: Performed By: #### H EPATIC, CBC, BMP, LIPASE #### [facility] [address] [place] [id number] [facility] ALT [Catalytic activity/Vol] 11 U/L Normal 7-52 [facility] Comment on above: Performed By: #### H EPATIC, CBC, BMP, LIPASE #### [facility] [address] AST [Catalytic activity/Vol] 15 U/L Normal 13-39 [facility] Comment on above: Performed By: #### H EPATIC, CBC, BMP, LIPASE #### [facility] [address] Bilirubin [Mass/Vol] 0.3 mg/dL Normal 0.3-1.0 [facility] Comment on above: Performed By: #### H EPATIC, CBC, BMP, LIPASE #### [facility] [address] Bilirubin,Indirect 0.2 mg/dL Normal [facility] Comment on above: Performed By: #### H EPATIC, CBC, BMP, LIPASE #### [address] Bilirubin.indirect [Mass/Vol] 0.10 mg/dL Normal 0.03-0.18 [facility] Comment on above: Performed By: #### H EPATIC, CBC, BMP, LIPASE #### [facility] [address] Globulin (S) [Mass/Vol] 2.9 g/dL Normal [facility] Comment on above: Performed By: #### H EPATIC, CBC, BMP, LIPASE #### [address] Protein [Mass/Vol] 7.0 g/dL Normal 6.4-8.9 [facility] Comment on above: Performed By: #### H EPATIC, CBC, BMP, LIPASE #### [address] Ketones Auto test strip (U) [Mass/Vol]Ordered By: Pete Thakkar on 03-23-2023 Ketones (U) [Mass/Vol] Negative Negative [facility] - UrinalysisOrder ed By: Pete Thakkar on 03-23-2023 Hyaline casts LM Ql (Urine sed) None seen [LPF] 0-8 [facility] Leukocytes [#/volume] correc jun for nucleated erythrocytes in Blood by Automated counOrdered By: Pete Thakkar on 03-23-2023 WBC corrected for nucl RBC Auto (Bld) [#/Vol] 6.3 10*3/uL 3.8-11.6 [facility] Lipaseon 03-23-2023 Lipase [Catalytic activity/Vol] 32.0 U/L Normal 11.0-82.0 [facility] Comment on above: Result Comment: PERF ORMED BY: [facility] [address] [place] [address] PATHOLOGIST INSTRUCTIONAL SUPPORT SPECIALIST ROOSEVELT KEYES M.D. Performed By: #### H EPATIC, CBC, BMP, LIPASE #### [address] Lipase [Enzymatic activity/v olume] in Serum or PlasmaOrdered By: Pete Thakkar on 03-23-2023 Lipase [Catalytic activity/Vol] 32.0 U/L 11.0-82.0 [facility] Lymphocytes Auto (Bld) [#/Vo l]Ordered By: Pete Thakkar on 03-23-2023 Lymphocytes (Bld) [#/Vol] 2.3 10*3/uL 1.00-4.8 [facility] Lymphocytes/100 WBC Auto (Bl d)Ordered By: Pete Thakkar on 03-23-2023 Lymphocytes/100 WBC (Bld) 36.1 % . [facility] MCH Auto (RBC) [Entitic mass ]Ordered By: Pete Thakkar on 03-23-2023 MCH (RBC) [Entitic mass] 29.2 pg 24.7-34.3 [facility] MCHC Auto (RBC) [Mass/Vol]Or dered By: Pete Thakkar on 03-23-2023 MCHC (RBC) [Mass/Vol] 33.7 g/dL 32.0-35.0 [facility] MCV Auto (RBC) [Entitic vol] Ordered By: Pete Thakkar on 03-23-2023 MCV (RBC) [Entitic vol] 86.7 fL 80-100 [facility] Monocyte distribution width [Entitic volume] in Blood by AutomatedOrdered By: Pete Thakkar on 03-23-2023 Monocyte distribution width Auto (Bld) [Entitic vol] 16.44 % 0.00-20.00 [facility] Monocytes Auto (Bld) [#/Vol] Ordered By: Pete Thakkar on 03-23-2023 Monocytes (Bld) [#/Vol] 0.5 10*3/uL 0.0-0.8 [facility] Monocytes/100 WBC Auto (Bld) Ordered By: Pete Thakkar on 03-23-2023 Monocytes/100 WBC (Bld) 7.7 % . [facility] Neutrophils Auto (Bld) [#/Vo l]Ordered By: Pete Thakkar on 03-23-2023 Neutrophils (Bld) [#/Vol] 3.2 10*3/uL 1.8-7.7 [facility] Neutrophils/100 WBC Auto (Bl d)Ordered By: Pete Thakkar on 03-23-2023 Neutrophils/100 WBC (Bld) 50.2 % . [facility] Nitrite Test strip Ql (U)Ord ered By: Pete Thakkar on 03-23-2023 Nitrite Ql (U) Negative Negative [facility] No Panel InformationOrdered By: Pete Thakkar on 03-23-2023 Estimated GFR (CKD-EPI) > 60.0 mL/Min [facility] Creatinine Clearance (Chem 105.27 [facility] Nucleated erythrocytes [Pres ence] in Blood by Automated countOrdered By: Pete Thakkar on 03-23-2023 Nucleated RBC Auto Ql (Bld) 0.1 /100{WBC} 0-0.5 [facility] Platelet mean volume Auto (B ld) [Entitic vol]Ordered By: Pete Thakkar on 03-23-2023 Platelet mean volume (Bld) [Entitic vol] 7.6 fL 6.3-10.7 [facility] Platelets Auto (Bld) [#/Vol] Ordered By: Pete Thakkar on 03-23-2023 Platelets (Bld) [#/Vol] 357 10*3/uL 150-450 [facility] Potassium [Moles/volume] in Serum or PlasmaOrdered By: Pete Thakkar on 03-23-2023 Potassium [Moles/Vol] 3.6 mmol/L 3.5-5.1 [facility] Protein Auto test strip (U) [Mass/Vol]Ordered By: Pete Thakkar on 03-23-2023 Protein (U) [Mass/Vol] Negative Negative [facility] Protein [Mass/volume] in Ser um or PlasmaOrdered By: Pete Thakkar on 03-23-2023 Protein [Mass/Vol] 7.0 g/dL 6.4-8.9 [facility] RBC Auto (Bld) [#/Vol]Ordere d By: Pete Thakkar on 03-23-2023 RBC (Bld) [#/Vol] 4.12 10*6/uL 3.60-5.00 [facility] Serum or plasma albumin/glob ulin mass ratioOrdered By: Pete Thakkar on 03-23-2023 Albumin/Globulin [Mass ratio] 1.4 {ratio} [facility] Serum or plasma anion gap de terminationOrdered By: Pete Thakkar on 03-23-2023 Anion gap [Moles/Vol] 10.1 mmol/L 6.0-15.0 [facility] Serum or plasma non-glucuron idated bilirubin measurement (mass/volume)Ordered By: Pete Thakkar on 03-23-2023 Bilirubin.indirect [Mass/Vol] 0.2 mg/dL [facility] Sodium [Moles/volume] in Ser um or PlasmaOrdered By: Pete Thakkar on 03-23-2023 Sodium [Moles/Vol] 142 mmol/L 136-145 [facility] Specific gravity Auto test s trip (U) [Rel density]Ordered By: Pete Thakkar on 03-23-2023 Specific gravity (U) [Rel density] 1.048 1.001-1.030 [facility] Squamous epithelial cells de tection in urine sediment by light microscopyOrdered By: Pete Thakkar on 03-23-2023 Epithelial cells.squamous LM Ql (Urine sed) None seen [HPF] 0-2 [facility] Troponin I High Sensitivityo n 03-23-2023 Troponin I High Sensitivity 12.2 pg/mL Normal 0.0-15.0 [facility] Comment on above: Result Comment: PERF ORMED BY: [facility] [address] [place] [address] PATHOLOGIST INSTRUCTIONAL SUPPORT SPECIALIST ROOSEVELT KEYES M.D. Performed By: #### H S TROP #### [address] Troponin I.cardiac [Mass/vol ume] in Serum or Plasma by Detection limit <= 0.01 ng/Ordered By: Pete Thakkar on 03-23-2023 Troponin I.cardiac DL <= 0.01 ng/mL [Mass/Vol] 12.2 pg/mL 0.0-15.0 [facility] Urea nitrogen [Mass/volume] in Serum or PlasmaOrdered By: Pete Thakkar on 03-23-2023 Urea nitrogen [Mass/Vol] 24 mg/dL 03-29 [facility] Urine bacteria detection by automated methodOrdered By: Pete Thakkar on 03-23-2023 Bacteria Auto Ql (U) 1+ None Seen [facility] Urine clarity by refractomet ry automatedOrdered By: Pete Thakkar on 03-23-2023 Clarity Refractometry automated (U) Clear Clear [facility] Urine glucose measurement by automated test strip (mass/volume)Ordered By: Pete Thakkar on 03-23-2023 Glucose Auto test strip (U) [Mass/Vol] Normal mg/dL Normal [facility] Urine hemoglobin detection b y automated test stripOrdered By: Pete Thakkar on 03-23-2023 Hemoglobin Auto test strip Ql (U) Trace Negative [facility] Urine leukocyte esterase det ection by automated test stripOrdered By: Pete Thakkar on 03-23-2023 Leukocyte esterase Auto test strip Ql (U) Negative Negative [facility] Urobilinogen Auto test strip (U) [Mass/Vol]Ordered By: Pete Thakkar on 03-23-2023 Urobilinogen (U) [Mass/Vol] Normal mg/dL Normal [facility] WBC Auto (Bld) [#/Vol]Ordere d By: Pete Thakkar on 03-23-2023 WBC (Bld) [#/Vol] 6.3 10*3/uL 3.8-11.6 [facility] pH Auto test strip (U)Ordere d By: Pete Thakkar on 03-23-2023 pH (U) 5.0 [pH] 5.0-9.0 [facility] Activated partial thrombopla stin time (aPTT) in platelet poor plasma by coagulation aOrdered By: Conner Griffith on 02-15-2023 aPTT Coag (PPP) [Time] 37.0 s 25.1-36.5 [facility] Alanine aminotransferase [En zymatic activity/volume] in Serum or PlasmaOrdered By: Conner Griffith on 02-15-2023 ALT [Catalytic activity/Vol] 13 U/L 7-52 [facility] Albumin [Mass/volume] in Ser um or Plasma by Bromocresol green (BCG) dye binding methoOrdered By: Conner Griffith on 02-15-2023 Albumin BCG dye [Mass/Vol] 4.3 g/dL 3.5-5.7 [facility] Alkaline phosphatase [Enzyma tic activity/volume] in Serum or PlasmaOrdered By: Conner Griffith on 02-15-2023 ALP [Catalytic activity/Vol] 124 U/L 34-104 [facility] Aspartate aminotransferase [ Enzymatic activity/volume] in Serum or PlasmaOrdered By: Conner Griffith on 02-15-2023 AST [Catalytic activity/Vol] 15 U/L 13-39 [facility] Basic Metabolic Panelon 02-03 Anion gap [Moles/Vol] 12.6 mmol/L Normal 6.0-15.0 [facility] Comment on above: Performed By: #### H EPATIC, CBC, BMP, LIPASE #### [facility] [address] Calcium [Mass/Vol] 9.3 mg/dL Normal 8.6-10.3 [facility] Comment on above: Performed By: #### H EPATIC, CBC, BMP, LIPASE #### [facility] [address] Chloride [Moles/Vol] 106 mmol/L Normal 98-107 [facility] Comment on above: Performed By: #### H EPATIC, CBC, BMP, LIPASE #### [facility] [address] [place] [address] [place] CO2 [Moles/Vol] 25.3 mmol/L Normal 21.0-31.0 [facility] Comment on above: Performed By: #### H EPATIC, CBC, BMP, LIPASE #### [facility] [address] Creatinine [Mass/Vol] 0.77 mg/dL Normal 0.60-1.20 [facility] Comment on above: Performed By: #### H EPATIC, CBC, BMP, LIPASE #### [facility] [address] [place] [address] [place] Creatinine Clr Calc Pharmacy 98.01 [facility] Comment on above: Performed By: #### H EPATIC, CBC, BMP, LIPASE #### [facility] [address] [place] [address] [place] GFR/1.73 sq M.predicted MDRD (S/P/Bld) [Vol rate/Area] mL/min/{1.73_m2} [facility] Comment on above: Performed By: #### H EPATIC, CBC, BMP, LIPASE #### [address] Glucose [Mass/Vol] 94 mg/dL Normal 70-100 [facility] Comment on above: Result Comment: [facility] Glucose Reference Range is dependent on time and content of last meal. Glucose of more than 200 mg/dL in a nonstressed, ambulatory subject supports the diagnosis of Diabetes Mellitus. ADA recommended reference range Performed By: #### H EPATIC, CBC, BMP, LIPASE #### [facility] [address] Potassium [Moles/Vol] 3.9 mmol/L Normal 3.5-5.1 [facility] Comment on above: Performed By: #### H EPATIC, CBC, BMP, LIPASE #### [facility] [address] [place] [address] [place] Sodium [Moles/Vol] 140 mmol/L Normal 136-145 [facility] Comment on above: Performed By: #### H EPATIC, CBC, BMP, LIPASE #### [facility] [address] Urea nitrogen [Mass/Vol] 14 mg/dL Normal 7-25 [facility] Comment on above: Performed By: #### H EPATIC, CBC, BMP, LIPASE #### [facility] [address] Basophils Auto (Bld) [#/Vol] Ordered By: Conner Griffith on 02-15-2023 Basophils (Bld) [#/Vol] 0.0 10*3/uL 0.0-0.2 [facility] Basophils/100 WBC Auto (Bld) Ordered By: Conner Griffith on 02-15-2023 Basophils/100 WBC (Bld) 0.6 % . [facility] Bilirubin.direct [Mass/volum e] in Serum or PlasmaOrdered By: Conner Griffith on 02-15-2023 Bilirubin.direct [Mass/Vol] 0.00 mg/dL 0.03-0.18 [facility] Comment on above: If the DBIL is less than 0.1, IBIL is not able to becalculated. Bilirubin.total [Mass/volume ] in Serum or PlasmaOrdered By: Conner Griffith on 02-15-2023 Bilirubin [Mass/Vol] 0.4 mg/dL 0.3-1.[address] [facility] [address] abdomen pelvis w conon CT abdomen pelvis w con [facility] Main [place] [address] [place] [address] CT Scan Report Signed Patient: Constantino Cardoso MR#: [id number] : 1970 Acct:[id number] Age/Sex: 52 / F ADM Date: 02/15/23 Loc: ER Room: Type: [facility] ER Attending Dr: Copies to: Conner [...] Columba Domínguez M.D.02/15/2023 9:56 AM Dictation Location: [place] [address] Transcribed By: [facility] 02/15/23 0956 Dictated By: Columba Domínguez MD 02/15/23 0943 Signed By: 02/15/23 0956 Normal [facility] Calcium [Mass/volume] in Ser um or PlasmaOrdered By: Conner Griffith on 02-15-2023 Calcium [Mass/Vol] 9.3 mg/dL 8.6-10.3 [facility] Carbon dioxide, total [Moles /volume] in Serum or PlasmaOrdered By: Conner Griffith on 02-15-2023 CO2 [Moles/Vol] 25.3 mmol/L 21.0-31.0 [facility] Chloride [Moles/volume] in S cristine or PlasmaOrdered By: Conner Griffith on 02-15-2023 Chloride [Moles/Vol] 106 mmol/L 98-107 [facility] Complete Blood Count Auto Di ffon 02-15-2023 Basophils (Bld) [#/Vol] 0.0 10*3/uL Normal 0.0-0.2 [facility] Comment on above: Result Comment: PERF ORMED BY: [place] [address] PATHOLOGIST INSTRUCTIONAL SUPPORT SPECIALIST ROOSEVELT KEYES M.D. Performed By: #### P ORS #### [address] Basophils/100 WBC (Bld) 0.6 % Normal . [facility] Comment on above: Performed By: #### P ORS #### [address] Eosinophils (Bld) [#/Vol] 0.2 10*3/uL Normal 0.0-0.45 [facility] Comment on above: Performed By: #### P ORS #### [address] Eosinophils/100 WBC (Bld) 4.0 % Normal . [facility] Comment on above: Performed By: #### P ORS #### [address] Erythrocyte distribution width (RBC) [Ratio] 13.5 % Normal 11.9-15.3 [facility] Comment on above: Performed By: #### P ORS #### [address] Hematocrit (Bld) [Volume fraction] 38.4 % Normal 34.0-46.4 [facility] Comment on above: Performed By: #### P ORS #### [address] Hemoglobin (Bld) [Mass/Vol] 13.0 g/dL Normal 11.8-15.4 [facility] Comment on above: Performed By: #### P ORS #### [place] [id number] [place] Lymphocytes (Bld) [#/Vol] 1.8 10*3/uL Normal 1.00-4.8 [facility] Comment on above: Performed By: #### P ORS #### [address] Lymphocytes/100 WBC (Bld) 33.8 % Normal . [facility] Comment on above: Performed By: #### P ORS #### [address] MCH (RBC) [Entitic mass] 29.4 pg Normal 24.7-34.3 [facility] Comment on above: Performed By: #### P ORS #### [address] MCV (RBC) [Entitic vol] 86.8 fL Normal 80-100 [facility] Comment on above: Performed By: #### P ORS #### [address] Mean Corpuscular HGB Conc 33.8 g/dL Normal 32.0-35.0 [facility] Comment on above: Performed By: #### P ORS #### [address] Monocytes (Bld) [#/Vol] 0.3 10*3/uL Normal 0.0-0.8 [facility] Comment on above: Performed By: #### P ORS #### [address] Monocytes/100 WBC (Bld) 18.21 % Normal 0.00-20.00 [facility] Comment on above: Performed By: #### P ORS #### [address] Monocytes/100 WBC (Bld) 4.8 % Normal . [facility] Comment on above: Performed By: #### P ORS #### [address] Neutrophils (Bld) [#/Vol] 3.0 10*3/uL Normal 1.8-7.7 [facility] Comment on above: Performed By: #### P ORS #### [address] Neutrophils/100 WBC (Bld) 56.8 % Normal . [facility] Comment on above: Performed By: #### P ORS #### [facility] [address] NRBC% 0.2 /100{WBC} Normal 0-0.5 [facility] Comment on above: Performed By: #### P ORS #### [address] Platelet mean volume (Bld) [Entitic vol] 7.3 fL Normal 6.3-10.7 [facility] Comment on above: Performed By: #### P ORS #### [facility] [address] [place] [address] Platelets (Bld) [#/Vol] 385 10*3/uL Normal 150-450 [facility] Comment on above: Performed By: #### P ORS #### [address] RBC (Bld) [#/Vol] 4.43 10*6/uL Normal 3.60-5.00 [facility] Comment on above: Performed By: #### P ORS #### [facility] [address] [place] [address] [place] WBC (Bld) [#/Vol] 5.2 10*3/uL Normal 3.8-11.6 [facility] Comment on above: Performed By: #### P ORS #### [place] [address] [place] Creatinine [Mass/volume] in Serum or PlasmaOrdered By: Conner Griffith on 02-15-2023 Creatinine [Mass/Vol] 0.77 mg/dL 0.60-1.20 [facility] Eosinophils Auto (Bld) [#/Vo l]Ordered By: Conner Griffith on 02-15-2023 Eosinophils (Bld) [#/Vol] 0.2 10*3/uL 0.0-0.45 [facility] Eosinophils/100 WBC Auto (Bl d)Ordered By: Conner Griffith on 02-15-2023 Eosinophils/100 WBC (Bld) 4.0 % . [facility] Erythrocyte distribution wid th Auto (RBC) [Ratio]Ordered By: Conner Griffith on 02-15-2023 Erythrocyte distribution width (RBC) [Ratio] 13.5 % 11.9-15.3 [facility] Globulin Calc (S) [Mass/Vol] Ordered By: Conner Griffith on 02-15-2023 Globulin (S) [Mass/Vol] 3.0 g/dL [facility] Glucose [Mass/volume] in Ser um or PlasmaOrdered By: Conner Griffith on 02-15-2023 Glucose [Mass/Vol] 94 mg/dL 70-100 [facility] Comment on above: ADA recommended refe rence rangeRandom Glucose Reference Range is dependent on time and content of last meal. Glucose of more than 200 mg/dL in a nonstressed, ambulatory subject supports the diagnosis of Diabetes Mellitus. Hematocrit Auto (Bld) [Volum e fraction]Ordered By: Conner Griffith on 02-15-2023 Hematocrit (Bld) [Volume fraction] 38.4 % 34.0-46.4 [facility] Hemoglobin [Mass/volume] in BloodOrdered By: Conner Griffith on 02-15-2023 Hemoglobin (Bld) [Mass/Vol] 13.0 g/dL 11.8-15.4 [facility] Hepatic Panelon 02-15-2023 Albumin [Mass/Vol] 4.3 g/dL Normal 3.5-5.7 [facility] Comment on above: Performed By: #### P ORS #### [facility] [address] [place] [address] [place] Albumin/Globulin [Mass ratio] 1.4 {ratio} Normal [facility] Comment on above: Performed By: #### P ORS #### [facility] [address] [place] [id number] [place] ALP [Catalytic activity/Vol] 124 U/L High 34-104 [facility] Comment on above: Performed By: #### P ORS #### [address] ALT [Catalytic activity/Vol] 13 U/L Normal 7-52 [facility] Comment on above: Performed By: #### P ORS #### [address] AST [Catalytic activity/Vol] 15 U/L Normal 13-39 [facility] Comment on above: Performed By: #### P ORS #### [address] Bilirubin [Mass/Vol] 0.4 mg/dL Normal 0.3-1.0 [facility] Comment on above: Performed By: #### P ORS #### [address] Bilirubin,Indirect 0.4 mg/dL Normal [facility] Comment on above: Performed By: #### P ORS #### [address] Bilirubin.indirect [Mass/Vol] 0.00 mg/dL Low 0.03-0.18 [facility] Comment on above: Result Comment: If t he DBIL is less than 0.1, IBIL is not able to be calculated. Performed By: #### P ORS #### [address] Globulin (S) [Mass/Vol] 3.0 g/dL Normal [facility] Comment on above: Performed By: #### P ORS #### [address] Protein [Mass/Vol] 7.3 g/dL Normal 6.4-8.9 [facility] Comment on above: Performed By: #### P ORS #### [address] Laboratory - CoagulationOrde red By: Conner Griffith on 02-15-2023 PT Coag (PPP) [Time] 11.7 s 9.0-12.9 [facility] Leukocytes [#/volume] correc jun for nucleated erythrocytes in Blood by Automated counOrdered By: Conner Griffith on 02-15-2023 WBC corrected for nucl RBC Auto (Bld) [#/Vol] 5.2 10*3/uL 3.8-11.6 [facility] Lipaseon 02-15-2023 Lipase [Catalytic activity/Vol] 19.0 U/L Normal 11.0-82.0 [facility] Comment on above: Result Comment: PERF ORMED BY: [place] [address] PATHOLOGIST INSTRUCTIONAL SUPPORT SPECIALIST ROOSEVELT KEYES M.D. Performed By: #### H EPATIC, CBC, BMP, LIPASE #### [address] Lipase [Enzymatic activity/v olume] in Serum or PlasmaOrdered By: Conner Griffith on 02-15-2023 Lipase [Catalytic activity/Vol] 19.0 U/L 11.0-82.0 [facility] Lymphocytes Auto (Bld) [#/Vo l]Ordered By: Conner Griffith on 02-15-2023 Lymphocytes (Bld) [#/Vol] 1.8 10*3/uL 1.00-4.8 [facility] Lymphocytes/100 WBC Auto (Bl d)Ordered By: Conner Griffith on 02-15-2023 Lymphocytes/100 WBC (Bld) 33.8 % . [facility] MCH Auto (RBC) [Entitic mass ]Ordered By: Conner Griffith on 02-15-2023 MCH (RBC) [Entitic mass] 29.4 pg 24.7-34.3 [facility] MCHC Auto (RBC) [Mass/Vol]Or dered By: Conner Griffith on 02-15-2023 MCHC (RBC) [Mass/Vol] 33.8 g/dL 32.0-35.0 [facility] MCV Auto (RBC) [Entitic vol] Ordered By: Conner Griffith on 02-15-2023 MCV (RBC) [Entitic vol] 86.8 fL 80-100 [facility] Monocyte distribution width [Entitic volume] in Blood by AutomatedOrdered By: Conner Griffith on 02-15-2023 Monocyte distribution width Auto (Bld) [Entitic vol] 18.21 % 0.00-20.00 [facility] Monocytes Auto (Bld) [#/Vol] Ordered By: Conner Griffith on 02-15-2023 Monocytes (Bld) [#/Vol] 0.3 10*3/uL 0.0-0.8 [facility] Monocytes/100 WBC Auto (Bld) Ordered By: Conner Griffith on 02-15-2023 Monocytes/100 WBC (Bld) 4.8 % . [facility] Neutrophils Auto (Bld) [#/Vo l]Ordered By: Conner Griffith on 02-15-2023 Neutrophils (Bld) [#/Vol] 3.0 10*3/uL 1.8-7.7 [facility] Neutrophils/100 WBC Auto (Bl d)Ordered By: Conner Griffith on 02-15-2023 Neutrophils/100 WBC (Bld) 56.8 % . [facility] No Panel InformationOrdered By: Conner Griffith on 02-15-2023 Estimated GFR (CKD-EPI) > 60.0 mL/Min [facility] Creatinine Clearance (Chem 98.01 [facility] Nucleated erythrocytes [Pres ence] in Blood by Automated countOrdered By: Conner Griffith on 02-15-2023 Nucleated RBC Auto Ql (Bld) 0.2 /100{WBC} 0-0.5 [facility] Partial Thromboplastin Timeo n 02-15-2023 aPTT Coag (Bld) [Time] 37.0 s High 25.1-36.5 [facility] Comment on above: Result Comment: PERF ORMED BY: [place] [address] PATHOLOGIST INSTRUCTIONAL SUPPORT SPECIALIST ROOSEVELT KEYES M.D. Performed By: #### P ORS #### [address] Platelet mean volume Auto (B ld) [Entitic vol]Ordered By: Conner Griffith on 02-15-2023 Platelet mean volume (Bld) [Entitic vol] 7.3 fL 6.3-10.7 [facility] Platelet poor plasma interna tional normalized ratio (INR) by coagulation assay (relatOrdered By: Conner Griffith on 02-15-2023 INR Coag (PPP) [Relative time] 1.0 {INR} [facility] Comment on above: INR Therapeutic Rang [...] 02-15-2023 Platelets (Bld) [#/Vol] 385 10*3/uL 150-450 [facility] Potassium [Moles/volume] in Serum or PlasmaOrdered By: Conner Griffith on 02-15-2023 Potassium [Moles/Vol] 3.9 mmol/L 3.5-5.1 [facility] Protein [Mass/volume] in Ser um or PlasmaOrdered By: Conner Griffith on 02-15-2023 Protein [Mass/Vol] 7.3 g/dL 6.4-8.9 [facility] Prothrombin Time INRon 02-15 INR Coag (PPP) [Relative time] 1.0 {INR} Normal [facility] Comment on above: Result Comment: INR [...] 4.5 Performed By: #### P ORS #### [facility] [address] PT Coag (PPP) [Time] 11.7 s Normal 9.0-12.9 [facility] Comment on above: Performed By: #### P ORS #### [facility] [address] RBC Auto (Bld) [#/Vol]Ordere d By: Conner Griffith on 02-15-2023 RBC (Bld) [#/Vol] 4.43 10*6/uL 3.60-5.00 [facility] Serum or plasma albumin/glob ulin mass ratioOrdered By: Conner Griffith on 02-15-2023 Albumin/Globulin [Mass ratio] 1.4 {ratio} [facility] Serum or plasma anion gap de terminationOrdered By: Conner Griffith on 02-15-2023 Anion gap [Moles/Vol] 12.6 mmol/L 6.0-15.0 [facility] Serum or plasma non-glucuron idated bilirubin measurement (mass/volume)Ordered By: Conner Griffith on 02-15-2023 Bilirubin.indirect [Mass/Vol] 0.4 mg/dL [facility] Sodium [Moles/volume] in Ser um or PlasmaOrdered By: Conner Griffith on 02-15-2023 Sodium [Moles/Vol] 140 mmol/L 136-145 [facility] Urea nitrogen [Mass/volume] in Serum or PlasmaOrdered By: Conner Griffith on 02-15-2023 Urea nitrogen [Mass/Vol] 14 mg/dL 7-25 [facility] WBC Auto (Bld) [#/Vol]Ordere d By: Conner Griffith on 02-15-2023 WBC (Bld) [#/Vol] 5.2 10*3/uL 3.8-11.6 [facility] MG MAMM SCREEN 3D MACARIO CADon 11-30-2022 MG MAMM SCREEN 3D MACARIO CAD Normal [facility] ER URINE PROFILEon 3 Bilirubin Ql (U) Negative Normal NEGATIVE [facility] Comment on above: Performed By: #### E RUR ####[facility] [address] [place] [address]DrNeo Smyth Clarity (U) CLEAR Normal CLEAR [facility] Comment on above: Performed By: #### E RUR ####[facility] [address] [place] [address]Dr. Tadeo Smyth Color (U) YELLOW Normal YELLOW [facility] Comment on above: Performed By: #### E RUR ####[facility] [address] [place], [place] [address]Dr. Tadeo ENG A micrscopic examina tion will be performed if indicated. Normal [facility] Comment on above: Performed By: #### E RUR ####[facility] [address] [place], [place] [address]Dr. Tadeo Smyth Glucose Ql (U) Negative Normal NEGATIVE [facility] Comment on above: Performed By: #### E RUR ####[facility] [address] [place], [place] [address]Dr. Tadeo Smyth Hemoglobin Ql (U) TRACE-INTACT Abnormal NEGATIVE [facility] Comment on above: Performed By: #### E RUR ####[facility] [address] [place], [place] [address]Dr. Tadeo Smyth Ketones Ql (U) Negative Normal NEGATIVE [facility] Comment on above: Performed By: #### E RUR ####[facility] [address] [place], [place] [address]Dr. Tadeo Smyth LEUKOCYTES Negative Normal NEGATIVE [facility] Comment on above: Performed By: #### E RUR ####[facility] [address] [place], [place] [address]Dr. Tadeo Smyth Nitrite Ql (U) Negative Normal NEGATIVE [facility] Comment on above: Performed By: #### E RUR ####[facility] [address] [place], [place] [address]Dr. Tadeo Smyth pH (U) 6.0 [pH] Normal 5-9 [facility] Comment on above: Performed By: #### E RUR ####[facility] [address] [place], [place] [address]Dr. Tadeo Smyth SPEC GRAVITY >=1.030 Abnormal 1.005-<=1.0 25 [facility] Comment on above: Performed By: #### E RUR ####[facility] [address] [place], [place] [address]Dr. Tadeo Smyth UA PROTEIN Negative Normal NEGATIVE/ TRACE [facility] Comment on above: Performed By: #### E RUR ####[facility] [address] [place], [place] [address]Dr. Tadeo Smyth UR MICRO IND NOT INDICATED Normal [facility] Comment on above: Performed By: #### E RUR ####[facility] [address] [place], [place] [address]Dr. Tadeo Smyth Urobilinogen Qn (U) 0.2 {Benito'U}/dL Normal 0.2 - 1. 0 [facility] Comment on above: Performed By: #### E RUR ####[facility] [address] [place], [place] [address]Dr. Tadeo Smyth XR ABD FLAT UP_PA Kasey 11-28 XR ABD FLAT UP_PA CH Normal [facility] AMYLASEon 11-27-2022 Amylase [Catalytic activity/Vol] 63 U/L Normal 25-115 [facility] Comment on above: Performed By: #### L IPA, VIJI, CMP ####[facility] [address] [place], [place] [address]Dr. Tadeo Smyth CBC AUTO DIFFon 11-27-2022 BASO # 0.0 103/ul Normal 0.0-0.1 [facility] Comment on above: Performed By: #### C BC ####[facility] [address] [place], [place] [address]Dr. Tadeo Smyth Basophils/100 WBC (Bld) 0.4 % Normal 0.2-2.0 [facility] Comment on above: Performed By: #### C BC ####[facility] [address] [place], [place] [address]Dr. Tadeo Smyth EO # 0.2 103/ul Normal 0.0-0.7 [facility] Comment on above: Performed By: #### C BC ####[facility] [address] [place], [place] [address]Dr. Tadeo Smyth Eosinophils/100 WBC (Bld) 2.8 % Normal 0.9-7.0 [facility] Comment on above: Performed By: #### C BC ####[facility] [address] [place], [place] [address]Dr. Tadeo Smyth Erythrocyte distribution width (RBC) [Ratio] 13.2 % Normal 11.0-15.0 [facility] Comment on above: Performed By: #### C BC ####[facility] [address] [place], [place] [address]Dr. Tadeo Smyth Hematocrit (Bld) [Volume fraction] 42.6 % Normal 36.0-48.0 [facility] Comment on above: Performed By: #### C BC ####[facility] [address] [place], [place] [address]Dr. Tadeo Smyth Hemoglobin (Bld) [Mass/Vol] 13.6 g/dL Normal 12.0-16.0 [facility] [facility] Comment on above: Performed By: #### C BC ####[facility] Bxgsnibsib[address] [place], [place] [address]Dr. Tadeo Smyth IG # 0.02 10e3/ul Normal 0.00-0.03 [facility] Comment on above: Performed By: #### C BC ####[facility] Tkctycfdty[address] [place], [place] [address]Dr. Tadeo Smyth IG % 0.3 % Normal 0.0-0.5 [facility] Comment on above: Performed By: #### C BC ####[facility] Czsjcqdayb[address] [place], [place] [address]Dr. Tadeo Smyth LYMPH # 2.2 103/ul Normal 1.2-3.8 [facility] Comment on above: Performed By: #### C BC ####[facility] Lgwcvhsddb64[address] [place], [place] [address]Dr. Tadeo Smyth Lymphocytes/100 WBC (Bld) 32.1 % Normal 20.5-60.0 [facility] Comment on above: Performed By: #### C BC ####[facility] Mrvibpzunu[address] [place], [place] [address]Dr. Tadeo Smyth MANUAL DIFF REQ NO Normal [facility] Comment on above: Performed By: #### C BC ####[facility] M[address]cvap[address] [place] [id number]. Tadeo Haja MCH (RBC) [Entitic mass] 29.6 pg Normal 26.7-34.0 [facility] Comment on above: Performed By: #### C BC ####[facility] Jlpokdukfo45[address] [place] [address]Dr. Tadeo Haja MCHC (RBC) [Mass/Vol] 31.9 g/dL Normal 29.9-35.2 [facility] Comment on above: Performed By: #### C BC ####[facility] Fhuqowbetp58[address] [place] [address]Dr. Margotnicole Smyth MCV (RBC) [Entitic vol] 92.6 fL Normal 81.0-99.0 [facility] Comment on above: Performed By: #### C BC ####[facility] Rtoovpohog[address] [place], [place] [address]Dr. Tadeo Smyth MONO # 0.2 103/ul Critically low 0.3-0.8 [facility] Comment on above: Performed By: #### C BC ####[facility] Ccjxvhptup3[address] [place], [place] [address]Dr. Tadeo Smyth Monocytes/100 WBC (Bld) 3.2 % Normal 1.7-12.0 [facility] Comment on above: Performed By: #### C BC ####[facility] Aqikgxtirb1914[address] [place], [place] [address]Dr. Tadeo Smyth NEUT # 4.2 103/ul Normal 1.4-6.5 [facility] Comment on above: Performed By: #### C BC ####[facility] Emhlkxvsik[address] [place], [place] [address]Dr. Tadeo Smyth Neutrophils/100 WBC (Bld) 61.2 % Normal 43.0-75.0 [facility] Comment on above: Performed By: #### C BC ####[facility] Siynlubuzo[address] [place], [place] [address]Dr. Tadeo Smyth Platelet mean volume (Bld) [Entitic vol] 9.0 fL Critically low 9.5-13.5 [facility] Comment on above: Performed By: #### C BC ####[facility] [address]bp[address] [place] [address]Dr. Tadeo Smtyh PLT 392 103/ul Normal 150-450 [facility] Comment on above: Performed By: #### C BC ####[facility] Auwoflzkwc7[address] [place] [address]Dr. Margotnicole Haja RBC 4.60 106/ul Normal 4.20-5.40 [facility] Comment on above: Performed By: #### C BC ####[facility] Zceiqepspp400[address] [place] [address]Dr. Tadeo Smyth WBC 6.9 103/ul Normal 4.0-11.0 [facility] Comment on above: Performed By: #### C BC ####[facility] Watitxqces049[address] [place], [place] [address]Dr. Tadeo Smyth LIPASEon 11-27-2022 Lipase [Catalytic activity/Vol] 100.0 U/L Normal 73.0-393.0 [facility] Comment on above: Performed By: #### L VIJI HALL, CMP ####[facility] Rjxumseubd7[address] [place], [place] [address]Dr. Tadeo Smyth PROF 14(COMP METB)on 023 Albumin [Mass/Vol] 3.5 g/dL Normal 3.4-5.0 [facility] Comment on above: Performed By: #### L ISABEL VIJI, CMP ####[facility] Oqnrgqabne4[address] [place], [place] [address]Dr. Tadeo Smyth Albumin/Globulin [Mass ratio] 0.9 {ratio} Normal [facility] Comment on above: Performed By: #### L IPA VIJI, CMP ####[facility] Ocdsomytnl0[address] [place], [place] [address]Dr. Tadeo Smyth ALP [Catalytic activity/Vol] 166 U/L Critically high 46-116 [facility] Comment on above: Performed By: #### L IPA VIJI, CMP ####[facility] Rxpypuqbmw8035[address] [place], [place] [address]Dr. Tadeo Smyth ALT [Catalytic activity/Vol] 25 U/L Normal 14-59 [facility] Comment on above: Performed By: #### L VIJI HALL, CMP ####[facility] Tjvbzmvojf[address] [place] [address]Dr. Tadeo Smyth Anion gap [Moles/Vol] 12.4 mmol/L Normal [facility] Comment on above: Performed By: #### L VIJI HALL, CMP ####[facility] Nciqwfhpzq44[address] [place] [address]Dr. Tadeo Smyth AST [Catalytic activity/Vol] 18 U/L Normal 15-37 [facility] Comment on above: Performed By: #### L VIJI HALL, CMP ####[facility] Ndhtwqtjeh[address] [place], [place] [address]Dr. Tadeo Smyth Bilirubin [Mass/Vol] 0.3 mg/dL Normal 0.2-1.0 [facility] Comment on above: Performed By: #### L VIJI HALL, CMP ####[facility] Qplkleluux[address] [place], [place] [address]Dr. Tadeo Smyth Calcium [Mass/Vol] 9.1 mg/dL Normal 8.5-10.1 [facility] Comment on above: Performed By: #### L VIJI HALL, CMP ####[facility] Ckecqoctxo22[address] [place], [place] [address]Dr. Tadeo Smyth Chloride [Moles/Vol] 104 mmol/L Normal 98-107 [facility] Comment on above: Performed By: #### L VIJI HALL, CMP ####[facility] Tsbmektrwm380[address] [place], [place] [address]Dr. Tadeo Smyth CO2 [Moles/Vol] 25.0 mmol/L Normal 21.0-32.0 [facility] Comment on above: Performed By: #### L VIJI HALL, CMP ####[facility] Tzdpvpssll[address] [place], [place] [address]Dr. Tadeo Smyth Creatinine [Mass/Vol] 0.87 mg/dL Normal 0.55-1.02 [facility] Comment on above: Performed By: #### L VIJI HALL, CMP ####[facility] Dlkbkolskr75[address] [place] [address]Dr. Tadeo Smyth EGFR-AF SRI LANKAN >60 Normal >=60 [facility] Comment on above: Performed By: #### L VIJI HALL, CMP ####[facility] Lkmbvzjjgu2[address] [place] [address]Dr. Tadeo Smyth EGFR-NON AF SRI LANKAN >60 Normal >=60 [facility] Comment on above: Performed By: #### L VIJI HALL, CMP ####[facility] Ktnpamhnoa9[address] [place] [address]Dr. Tadeo Smyth Globulin (S) [Mass/Vol] 3.9 g/dL Normal [facility] Comment on above: Performed By: #### L VIJI HALL, CMP ####[facility] Wwtjcuohdx8220 [place] [address]Dr. Tadeo Smyth Glucose [Mass/Vol] 169 mg/dL Critically high 74-106 [facility] Comment on above: Performed By: #### L VIJI HALL, CMP ####[facility] Pyqngnudew4[address] [place], [place] [address]Dr. Tadeo Smyth Potassium [Moles/Vol] 3.4 mmol/L Critically low 3.5-5.1 [facility] Comment on above: Performed By: #### L VIJI HALL, CMP ####[facility] [address]wnjtxt20[address] [place] [address]Dr. Tadeo Smyth Protein [Mass/Vol] 7.4 g/dL Normal 6.4-8.2 [facility] Comment on above: Performed By: #### L VIJI HALL, CMP ####[facility] Hmtwczwdir58[address] [place] [address]Dr. Tadeo Smyth Sodium [Moles/Vol] 138 mmol/L Normal 136-145 [facility] Comment on above: Performed By: #### L VIJI HALL, CMP ####[facility] Rjayhifbjk4332 [place] [address]Dr. Tadeo Smyth Urea nitrogen [Mass/Vol] 23.0 mg/dL Critically high 7.0-18.0 [facility] Comment on above: Performed By: #### L VIJI HALL, CMP ####[facility] Cncaoerqcp9804 [place], [place] [address]Lr. Tadeo Smyth Urea nitrogen/Creatinine [Mass ratio] 26.4 mg/mg Normal [facility] Comment on above: Performed By: #### L VIJI HALL, CMP ####[facility] Rcshmrsldb0891 [place], [place] [address]Ej. Tade[address] Smy[address] CT enterographyon 11-04-2022 CT enterography [facility] [place] [address] CT Scan Report Signed Patient: Constantino Cardoso MR#: [id number] : 1970 Acct:[id number] Age/Sex: 52 / F ADM Date: 11/04/22 Loc: CT Room: Type: [facility] Attending Dr: Jennie Ayon MD Copies [...] Bateman Jr., D.O.11/04/2022 11:17 AM Dictation Location: [place] [address] Transcribed By: [facility] 11/04/22 111 Dictated By: Tiburcio Bateman Jr, DO 11/04/22 1112 Signed By: 11/04/22 1117 Normal [facility] AMYLASEon 11-02-2022 Amylase [Catalytic activity/Vol] 40 U/L Normal 25-115 [facility] Comment on above: Performed By: #### L IPA, MG, CMP, VIJI ####[facility] Zkwjwqpsfc90[address] [place] [address]Dr. Tadeo Smyth CBC AUTO DIFFon 11-02-2022 BASO # 0.0 103/ul Normal 0.0-0.1 [facility] Comment on above: Performed By: #### C BC ####[facility] Mmqjylmrke32[address] [place], [place] [address]Dr. Tadeo Smyth Basophils/100 WBC (Bld) 0.5 % Normal 0.2-2.0 [facility] Comment on above: Performed By: #### C BC ####[facility] Xdlwigtzvh26[address] [place], [place] [address]Dr. Tadeo Smyth EO # 0.1 103/ul Normal 0.0-0.7 [facility] Comment on above: Performed By: #### C BC ####[facility] Kzutvbxokp8[address] [place], [place] [address]Dr. Tadeo Smyth Eosinophils/100 WBC (Bld) 2.8 % Normal 0.9-7.0 [facility] Comment on above: Performed By: #### C BC ####[facility] Totrgelywi8674[address] [place], [place] [address]Dr. Tadeo Smyth Erythrocyte distribution width (RBC) [Ratio] 13.3 % Normal 11.0-15.0 [facility] Comment on above: Performed By: #### C BC ####[facility] Pklrhrxclu7[address] [place] [address]Dr. Tadeo Smyth Hematocrit (Bld) [Volume fraction] 35.6 % Critically low 36.0-48.0 [facility] Comment on above: Performed By: #### C BC ####[facility] Wibpeoawhy7[address] [place] [address]Dr. Tadeo Haja Hemoglobin (Bld) [Mass/Vol] 11.3 g/dL Critically low 12.0-16.0 [facility] Comment on above: Performed By: #### C BC ####[facility] Siyzgcdpkj54[address] [place] [address]Dr. Tadeo Smyth IG # 0.01 10e3/ul Normal 0.00-0.03 [facility] Comment on above: Performed By: #### C BC ####[facility] Wjraktyyqr9[address] [place], [place] [address]Dr. Tadeo Smyth IG % 0.2 % Normal 0.0-0.5 [facility] Comment on above: Performed By: #### C BC ####[facility] Cguhlvqwjl16[address] [place], [place] [address]Dr. Tadeo Smyth LYMPH # 1.5 103/ul Normal 1.2-3.8 [facility] Comment on above: Performed By: #### C BC ####[facility] Ewjrvuxvvw6[address] [place], [place] [address]Dr. Tadeo Smyth Lymphocytes/100 WBC (Bld) 34.9 % Normal 20.5-60.0 [facility] Comment on above: Performed By: #### C BC ####[facility] Wvhkewitgt[address] [place], [place] [address]Dr. Tadeo Smyth MANUAL DIFF REQ NO Normal [facility] Comment on above: Performed By: #### C BC ####[facility] Taakpumdtl6[address] [place], [place] [address]Dr. Margotnicole Smyth MCH (RBC) [Entitic mass] 28.8 pg Normal 26.7-34.0 [facility] Comment on above: Performed By: #### C BC ####[facility] Y[address]be[address] [place] [address]Lz. Tadeo Smyth MCHC (RBC) [Mass/Vol] 31.7 g/dL Normal 29.9-35.2 [facility] Comment on above: Performed By: #### C BC ####[facility] Dzkbvmnjax12[address] [place] [address]Dr. Tadeo Smyth MCV (RBC) [Entitic vol] 90.8 fL Normal 81.0-99.0 [facility] Comment on above: Performed By: #### C BC ####[facility] Qzwbwqanel8484 [place] [address]Dr. Tadeo Haja MONO # 0.3 103/ul Normal 0.3-0.8 [facility] Comment on above: Performed By: #### C BC ####[facility] Ruupkwkrbv8342 [place] [address]Dr. Margotnicole Smyth Monocytes/100 WBC (Bld) 6.9 % Normal 1.7-12.0 [facility] Comment on above: Performed By: #### C BC ####[facility] Xbyxqxaqje6[address] [place], [place] [address]Dr. Tadeo Smyth NEUT # 2.4 103/ul Normal 1.4-6.5 [facility] Comment on above: Performed By: #### C BC ####[facility] Lljjhowpas0237 [place] [address]Dr. Tadeo Haja Neutrophils/100 WBC (Bld) 54.7 % Normal 43.0-75.0 [facility] Comment on above: Performed By: #### C BC ####[facility] Takgtkoyma5112 [place] [address]Dr. Tadeo Smyth Platelet mean volume (Bld) [Entitic vol] 8.9 fL Critically low 9.5-13.5 [facility] Comment on above: Performed By: #### C BC ####[facility] Hefuhlwowk4203 [place] [address]Dr. Tadeo Haja PLT 316 103/ul Normal 150-450 [facility] Comment on above: Performed By: #### C BC ####[facility] Elkjnvphmg1297 [place] [address]Dr. Tadeo Smyth RBC 3.92 106/ul Critically low 4.20-5.40 [facility] Comment on above: Performed By: #### C BC ####[facility] Fxkdkarkam4498 [place] [address]Dr. Tadeo Smyth WBC 4.4 103/ul Normal 4.0-11.0 [facility] Comment on above: Performed By: #### C BC ####[facility] Rkjzrdlhpg14[address] [place] [address]Dr. Tadeo Smyth H PYLORI ANTIBODY IGGon 10-07 H. PYLORI IGG ABS 0.12 Index Value Normal 0.00-0.79 [facility] Comment on above: Result Comment: Nega tive <0.80 Equivocal 0.80 - 0.89 Positive >0.89 Performed By: #### H PYLLC ####[facility] Lzuvoeoduk[address] [place], [place] [address]Dr. Tadeo Smyth LIPASEon 11-02-2022 Lipase [Catalytic activity/Vol] 58.0 U/L Critically low 73.0-393.0 [facility] Comment on above: Performed By: #### L IPA, MG, CMP, VIJI ####[facility] Spnmefkvms5[address] [place], [place] [address]Dr. Tadeo Smyth MAGNESIUMon 11-02-2022 Magnesium [Mass/Vol] 1.8 mg/dL Normal 1.8-2.4 [facility] Comment on above: Performed By: #### L IPA, MG, CMP, VIJI ####[facility] Qfvvwojdqj9[address] [place], [place] [address]Dr. Tadeo Smyth PROF 14(COMP METB)on 023 Albumin [Mass/Vol] 3.2 g/dL Critically low 3.4-5.0 [facility] [place] Comment on above: Performed By: #### L IPA, MG, CMP, VIJI ####[facility] Awycdfjlje[address] [place], [place] [address]Dr. Tadeo Smyth Albumin/Globulin [Mass ratio] 1.0 {ratio} Normal [facility] Comment on above: Performed By: #### L IPA, MG, CMP, VIJI ####[facility] Ghkjvwxltm2032 [place] [address]Dr. Tadeo Smyth ALP [Catalytic activity/Vol] 138 U/L Critically high 46-116 [facility] Comment on above: Performed By: #### L IPA, MG, CMP, VIJI ####[facility] Zomjhkxnqm9249 [place] [address]Dr. Tadeo Smyth ALT [Catalytic activity/Vol] 22 U/L Normal 14-59 [facility] Comment on above: Performed By: #### L IPA, MG, CMP, VIJI ####[facility] Xvkhugkkrq[address] [place], [place] [address]Dr. Tadeo Smyth Anion gap [Moles/Vol] 10.0 mmol/L Normal [facility] Comment on above: Performed By: #### L IPA, MG, CMP, VIJI ####[facility] Nruntuokhl028[address] [place], [place] [address]Dr. Tadeo Smyth AST [Catalytic activity/Vol] 18 U/L Normal 15-37 [facility] Comment on above: Performed By: #### L IPA, MG, CMP, VIJI ####[facility] Xaygnnnslw87[address] [place], [place] [address]Dr. Tadeo Smyth Bilirubin [Mass/Vol] 0.5 mg/dL Normal 0.2-1.0 [facility] Comment on above: Performed By: #### L IPA, MG, CMP, VIJI ####[facility] Oinsfyaiqv18[address] [place], [place] [address]Dr. Tadeo Smyth Calcium [Mass/Vol] 8.9 mg/dL Normal 8.5-10.1 [facility] Comment on above: Performed By: #### L IPA, MG, CMP, VIJI ####[facility] Bpvswrmcjy22[address] [place], [place] [address]Dr. Tadeo Smyth Chloride [Moles/Vol] 107 mmol/L Normal 98-107 [facility] Comment on above: Performed By: #### L IPA, MG, CMP, VIJI ####[facility] Qszggqjjgf14[address] [place], [place] [address]Dr. Tadeo Smyth CO2 [Moles/Vol] 28.8 mmol/L Normal 21.0-32.0 [facility] Comment on above: Performed By: #### L IPA, MG, CMP, VIJI ####[facility] Hwxikgidoy3283 [place] [address]Dr. Tadeo Smyth Creatinine [Mass/Vol] 0.74 mg/dL Normal 0.55-1.02 [facility] Comment on above: Performed By: #### L IPA, MG, CMP, VIJI ####[facility] Wszsigxwhn5337 [place] [address]Dr. Tadeo Smyth EGFR-AF SRI LANKAN >60 Normal >=60 [facility] Comment on above: Performed By: #### L IPA, MG, CMP, VIJI ####[facility] Ckdwbnlhwe6907 [place] [address]Dr. Tadeo Smyth EGFR-NON AF SRI LANKAN >60 Normal >=60 [facility] Comment on above: Performed By: #### L IPA, MG, CMP, VIJI ####[facility] Nsbiwwpbgt88[address] [place], [place] [address]Dr. Tadeo Smyth Globulin (S) [Mass/Vol] 3.3 g/dL Normal [facility] Comment on above: Performed By: #### L IPA, MG, CMP, VIJI ####[facility] Uqyqufwxyp2104 [place] [address]Dr. Tadeo Smyth Glucose [Mass/Vol] 96 mg/dL Normal 74-106 [facility] Comment on above: Performed By: #### L IPA, MG, CMP, VIJI ####[facility] Sopzlukiag07[address] [place] [address]Dr. Tadeo Smyth Potassium [Moles/Vol] 3.8 mmol/L Normal 3.5-5.1 [facility] Comment on above: Performed By: #### L IPA, MG, CMP, VIJI ####[facility] Nxoevkmhxn5385 [place] [address]Dr. Tadeo Smyth Protein [Mass/Vol] 6.5 g/dL Normal 6.4-8.2 [facility] Comment on above: Performed By: #### L IPA, MG, CMP, VIJI ####[facility] Rjbvjhcmdc6367 [place] [address]Dr. Tadeo Smyth Sodium [Moles/Vol] 142 mmol/L Normal 136-145 [facility] Comment on above: Performed By: #### L IPA, MG, CMP, VIJI ####[facility] Cpmxmtvxwl101[address] [place], [place] [address]Dr. Tadeo Smyth Urea nitrogen [Mass/Vol] 8.0 mg/dL Normal 7.0-18.0 [facility] Comment on above: Performed By: #### L IPA, MG, CMP, VIJI ####[facility] Ggckfdoqll040[address] [place], [place] [address]Dr. Tadeo Smyth Urea nitrogen/Creatinine [Mass ratio] 10.8 mg/mg Normal [facility] Comment on above: Performed By: #### L IPA, MG, CMP, VIJI ####[facility] Qewirndezf[address] [place], [place] [address]Dr. Tadeo Smyth AMMONIAon 11-01-2022 Ammonia (P) [Moles/Vol] 18 umol/L Normal 11-32 [facility] Comment on above: Performed By: #### A MM ####[facility] Ojwenfzech063[address] [place], [place] [address]Dr. Tadeo Smyth AMYLASEon 11-01-2022 Amylase [Catalytic activity/Vol] 43 U/L Normal 25-115 [facility] Comment on above: Performed By: #### M G, VIJI, LIPA, CMP ####[facility] Ektofolozf[address] [place], [place] [address]Dr. Tadeo Smyth CBC AUTO DIFFon 11-01-2022 BASO # 0.0 103/ul Normal 0.0-0.1 [facility] Comment on above: Performed By: #### C BC ####[facility] Amnszoqrdx5[address] [place], [place] [address]Dr. Tadeo Smyth Basophils/100 WBC (Bld) 0.6 % Normal 0.2-2.0 [facility] Comment on above: Performed By: #### C BC ####[facility] Zlvzrrkelr4500 [place] [address]Dr. Tadeo Smyth EO # 0.1 103/ul Normal 0.0-0.7 [facility] Comment on above: Performed By: #### C BC ####[facility] Tfqwqgfiok1991 [place] [address]Dr. Tadeo Smyth Eosinophils/100 WBC (Bld) 1.5 % Normal 0.9-7.0 [facility] Comment on above: Performed By: #### C BC ####[facility] Nxunuzavgo12[address] [place], [place] [address]Dr. Tadeo Smyth Erythrocyte distribution width (RBC) [Ratio] 13.5 % Normal 11.0-15.0 [facility] Comment on above: Performed By: #### C BC ####[facility] Ddlgtwcfet3667[address] [place], [place] [address]Dr. Tadeo Smyth Hematocrit (Bld) [Volume fraction] 37.7 % Normal 36.0-48.0 [facility] Comment on above: Performed By: #### C BC ####[facility] Tcjarpkcgd8542[address] [place], [place] [address]Dr. Tadeo Smyth Hemoglobin (Bld) [Mass/Vol] 12.5 g/dL Normal 12.0-16.0 [facility] Comment on above: Performed By: #### C BC ####[facility] Z[address]ugqdhorl[address] [place], [place] [address]Dr. Tadeo Smyth IG # 0.02 10e3/ul Normal 0.00-0.03 [facility] Comment on above: Performed By: #### C BC ####[facility] Nocynztejv20[address] [place], [place] [address]Dr. Tadeo Smyth IG % 0.4 % Normal 0.0-0.5 [facility] Comment on above: Performed By: #### C BC ####[facility] Oyyhesolje38[address] [place], [place] [address]Dr. Tadeo Smyth LYMPH # 1.3 103/ul Normal 1.2-3.8 [facility] Comment on above: Performed By: #### C BC ####[facility] Kiwpfzvhiz[address] [place] [address]Dr. Tadeo Smyth Lymphocytes/100 WBC (Bld) 23.9 % Normal 20.5-60.0 [facility] Comment on above: Performed By: #### C BC ####[facility] Esdcydfuxz7119 [place] [address]Dr. Tadeo Smyth MANUAL DIFF REQ NO Normal [facility] Comment on above: Performed By: #### C BC ####[facility] Ujihqsyehs5331 [place] [address]Dr. Tadeo Haja MCH (RBC) [Entitic mass] 29.8 pg Normal 26.7-34.0 [facility] Comment on above: Performed By: #### C BC ####[facility] Rrdlzrijug[address] [place] [address]Dr. Tadeo Smyth MCHC (RBC) [Mass/Vol] 33.2 g/dL Normal 29.9-35.2 [facility] Comment on above: Performed By: #### C BC ####[facility] Yqxlirdnoy1892 [place] [address]Dr. Tadeo Smyth MCV (RBC) [Entitic vol] 89.8 fL Normal 81.0-99.0 [facility] Comment on above: Performed By: #### C BC ####[facility] Qbskywbvnt5647 [place] [address]Dr. Tadeo Haja MONO # 0.3 103/ul Normal 0.3-0.8 [facility] Comment on above: Performed By: #### C BC ####[facility] Dhljbtazfj3658 [place] [address]Dr. Tadeo Haja Monocytes/100 WBC (Bld) 5.2 % Normal 1.7-12.0 [facility] Comment on above: Performed By: #### C BC ####[facility] Jtqniemeca1874 [place] [address]Dr. Tadeo Haja NEUT # 3.6 103/ul Normal 1.4-6.5 [facility] Comment on above: Performed By: #### C BC ####[facility] Ekpbntpqei7253 [place] [address]Dr. Tadeo Smyth Neutrophils/100 WBC (Bld) 68.4 % Normal 43.0-75.0 [facility] Comment on above: Performed By: #### C BC ####[facility] Wlkfuuvyjg9296 [place] [address]Dr. Tadeo Smyth Platelet mean volume (Bld) [Entitic vol] 9.0 fL Critically low 9.5-13.5 [facility] Comment on above: Performed By: #### C BC ####[facility] Ulturgwokx9878 [place] [address]Dr. Tadeo Smyth PLT 356 103/ul Normal 150-450 [facility] Comment on above: Performed By: #### C BC ####[facility] Soxnmmsjso65[address] [place], [place] [address]Dr. Tadeo Smyth RBC 4.20 106/ul Normal 4.20-5.40 [facility] Comment on above: Performed By: #### C BC ####[facility] Epdxrqtvwg96[address] [place], [place] [address]Dr. Tadeo Smyth WBC 5.2 103/ul Normal 4.0-11.0 [facility] Comment on above: Performed By: #### C BC ####[facility] Nhmzfehkyj12[address] [place], [place] [address]Dr. Tadeo Smyth CT ABD/PELV W CONon 11-01-[address] ABD/PELV W CON Normal [facility] CULTURE BLOODon 11-01-2022 Microscopic examination of blood, culture Culture Observations: NO GROWTH AT 5 DAYS. Isolate 1 BC_BA_NA Normal [facility] Comment on above: Performed By: #### B LDCX2 ####[facility] Jmopoonlmg8[address] [place], [place] [address]Dr. Tadeo Smyth Performed By: #### B LDCX1 ####[facility] Cctsbssiyy427[address] [place], [place] [address]Dr. Tadeo Smyth CULTURE URINEon 11-01-2022 CULTURE URINE Culture Observations : LIGHT GROWTH OF MIXED GENITAL SINTIA. NO POTENTIAL PATHOGENS SEEN. Normal [facility] Comment on above: Performed By: #### U RCX ####[facility] Gzauutysbz99[address] [place], [place] [address]Dr. Tadeo Smyth Covid-19 PCR ([facility])on 10-07 SARS-CoV-2 (COVID-19) RNA CHEN+probe Ql (Unsp spec) Not detected Normal NOT DETECTED [facility] Comment on above: Result Comment: When [...] for this test is supported by the Radiation Control Specialist of Health and Human Service's declaration that [...] be used). Performed By: #### C VDTBH ####[facility] Frdtagqoin12[address] [place], [place] [address]Dr. Tadeo Smyth LACTATE/LACTIC ACIDon 2022 Lactate [Moles/Vol] 0.7 mmol/L Normal 0.4-1.9 [facility] Comment on above: Performed By: #### L ACT ####[facility] [id number] [place], [place] [address]Dr. Tadeo Smyth LIPASEon 11-01-2022 Lipase [Catalytic activity/Vol] 58.0 U/L Critically low 73.0-393.0 [facility] Comment on above: Performed By: #### M G, VIJI, LIPA, CMP ####[facility] [id number] [place], [place] [address]Dr. Tadeo Smyth MAGNESIUMon 11-01-2022 Magnesium [Mass/Vol] 2.0 mg/dL Normal 1.8-2.4 [facility] Comment on above: Performed By: #### M Ayan, VIJI, LIPA, CMP ####[facility] [address]ret[address]xjjp[address] [place] [address]Dr. Tadeo Smyth PROF 14(COMP METB)on 023 Albumin [Mass/Vol] 3.6 g/dL Normal 3.4-5.0 [facility] Comment on above: Performed By: #### M Ayan, VIJI, LIPA, CMP ####[facility] [address]th[address] [place], [place] [address]Dr. Tadeo Smyth Albumin/Globulin [Mass ratio] 1.0 {ratio} Normal [facility] Comment on above: Performed By: #### M Ayan, VIJI, LIPA, CMP ####[facility] [address] [place], [place] [address]Dr. Tadeo Smyth ALP [Catalytic activity/Vol] 164 U/L Critically high 46-116 [facility] Comment on above: Performed By: #### Hanna Botello, VIJI, LIPA, CMP ####[facility] [address] [place], [place] [address]Dr. Tadeo Smyth ALT [Catalytic activity/Vol] 22 U/L Normal 14-59 [facility] Comment on above: Performed By: #### M Ayan, VIJI, LIPA, CMP ####[facility] [address]wmrxmlmc[address] [place] [address]Dr. Tadeo Smyth Anion gap [Moles/Vol] 11.5 mmol/L Normal [facility] Comment on above: Performed By: #### M Ayan, VIJI, LIPA, CMP ####[facility] Ulunscfalm[address] [place] [address]Dr. Tadeo Smyth AST [Catalytic activity/Vol] 17 U/L Normal 15-37 [facility] Comment on above: Performed By: #### M G, VIJI, LIPA, CMP ####[facility] Pzqibilurv[address] [place] [address]Dr. Tadeo Smyth Bilirubin [Mass/Vol] 0.4 mg/dL Normal 0.2-1.0 [facility] Comment on above: Performed By: #### M G, VIJI, LIPA, CMP ####[facility] R[address]asnjfs[address] [place] [address]Dr. Tadeo Smyth Calcium [Mass/Vol] 9.1 mg/dL Normal 8.5-10.1 [facility] Comment on above: Performed By: #### M G, VIJI, LIPA, CMP ####[facility] Rmaevacpfc[address] [place] [address]Dr. Tadeo Smyth Chloride [Moles/Vol] 105 mmol/L Normal 98-107 [facility] Comment on above: Performed By: #### M G, VIJI, LIPA, CMP ####[facility] [address] [place], [place] [address]Dr. Tadeo Smyth CO2 [Moles/Vol] 27.6 mmol/L Normal 21.0-32.0 [facility] Comment on above: Performed By: #### M G, VIJI, LIPA, CMP ####[facility] Imeewarify[address] [place], [place] [address]Dr. Tadeo Smyth Creatinine [Mass/Vol] 0.72 mg/dL Normal 0.55-1.02 [facility] Comment on above: Performed By: #### M Ayan, VIJI, LIPA, CMP ####[facility] [address] [place], [place] [address]Dr. Tadeo Smyth EGFR-AF SRI LANKAN >60 Normal >=60 [facility] Comment on above: Performed By: #### M G, VIJI, LIPA, CMP ####[facility] [address]ie[address]kgv[address] [place], [place] [address]Dr. Tadeo Smyth EGFR-NON AF SRI LANKAN >60 Normal >=60 [facility] Comment on above: Performed By: #### M G, VIJI, LIPA, CMP ####[facility] [address]raubdzg[address] [place], [place] [address]Dr. Tadeo Smyth Globulin (S) [Mass/Vol] 3.6 g/dL Normal [facility] Comment on above: Performed By: #### M G, VIJI, LIPA, CMP ####[facility] Eq[address]ioqkznf[address] [place] [address]Dr. Tadeo Smyth Glucose [Mass/Vol] 100 mg/dL Normal 74-106 [facility] Comment on above: Performed By: #### M G, VIJI, LIPA, CMP ####[facility] Tyrjgspvda[address] [place] [address]Dr. Tadeo Smyth Potassium [Moles/Vol] 4.1 mmol/L Normal 3.5-5.1 [facility] Comment on above: Performed By: #### M G, VIJI, LIPA, CMP ####[facility] Tstcecwrie[address] [place] [address]Dr. Tadeo Smyth Protein [Mass/Vol] 7.2 g/dL Normal 6.4-8.2 [facility] Comment on above: Performed By: #### M G, VIJI, LIPA, CMP ####[facility] Eifmlmmrdz[address] [place] [address]Dr. Tadeo Smyth Sodium [Moles/Vol] 140 mmol/L Normal 136-145 [facility] Comment on above: Performed By: #### M G, VIJI, LIPA, CMP ####[facility] Mccxbqidiu[address] [place] [address]Dr. Tadeo Smyth Urea nitrogen [Mass/Vol] 15.0 mg/dL Normal 7.0-18.0 [facility] Comment on above: Performed By: #### M G, VIJI, LIPA, CMP ####[facility] Cmxqhdxhtt[address] [place] [address]Dr. Tadeo Smyth Urea nitrogen/Creatinine [Mass ratio] 20.8 mg/mg Normal [facility] Comment on above: Performed By: #### M G, VIJI, LIPA, CMP ####[facility] Nfnvuocipj[address] [place] [address]Dr. Tadeo Smyth UA RANDOM W/MICROSCOPICon BACTERIA TRACE Abnormal NONE SEEN [facility] Comment on above: Performed By: #### U AMIC ####[facility] Wu[address]ocrgs[address] [place] [address]Dr. Tadeo Smyth Bilirubin Ql (U) Negative Normal NEGATIVE [facility] Comment on above: Performed By: #### U AMIC ####[facility] [address] [place], [place] [address]Dr. Tadeo Smyth CAST NONE SEEN Normal NONE SEEN [facility] Comment on above: Performed By: #### U AMIC ####[facility] Ggskizdlzq[address] [place] [address]Dr. Tadeo Smyth Clarity (U) CLEAR Normal CLEAR [facility] Comment on above: Performed By: #### U AMIC ####[facility] [address] [place], [place] [address]Dr. Tadeo Smyth Color (U) LT. YELLOW Normal YELLOW [facility] Comment on above: Performed By: #### U AMIC ####[facility] [address]abwha[address] [place], [place] [address]Dr. Tadeo Smyth Crystals LM Nom (Urine sed) NONE SEEN Normal NONE SEEN [facility] Comment on above: Performed By: #### U AMIC ####[facility] Pbuaomedbv[address] [place], [place] [address]Dr. Tadeo Smyth Epithelial cells LM Ql (Urine sed) RARE Normal NONE SEEN /RARE [facility] Comment on above: Performed By: #### U AMIC ####[facility] [address]zpxubb[address] [place], [place] [address]Dr. Tadeo Smyth Glucose Ql (U) Negative Normal NEGATIVE [facility] Comment on above: Performed By: #### U AMIC ####[facility] M[address]hxeleyj[address] [place], [place] [address]Dr. Tadeo Smyth Hemoglobin Ql (U) TRACE-LYSED Abnormal NEGATIVE [facility] Comment on above: Performed By: #### U AMIC ####[facility] Hcidavykdm[address] [place], [place] [address]Dr. Tadeo Smyth Ketones Ql (U) Negative Normal NEGATIVE [facility] Comment on above: Performed By: #### U AMIC ####[facility] M[address]wodeusx[address] [place], [place] [address]Dr. Tadeo Smyth LEUKOCYTES Negative Normal NEGATIVE [facility] Comment on above: Performed By: #### U AMIC ####[facility] J[address]pfvklmu[address] [place] [address]Dr. Margotnicole Haja MUCOUS NONE SEEN Normal NONE SEEN [facility] Comment on above: Performed By: #### U AMIC ####[facility] Empjgotpvm[address] [place] [address]Dr. Tadeo Smyth Nitrite Ql (U) Negative Normal NEGATIVE [facility] Comment on above: Performed By: #### U AMIC ####[facility] T[address]un[address]zq[address] [place] [address]Dr. Tadeo Smyth pH (U) 6.0 [pH] Normal 5-9 [facility] Comment on above: Performed By: #### U AMIC ####[facility] [address] [place], [place] [address]Dr. Tadeo Smyth RBC 0-2 Normal 0-2 [facility] Comment on above: Performed By: #### U AMIC ####[facility] [address]af[address]wg[address] [place], [place] [address]Dr. Tadeo Smyth SPEC GRAVITY 1.010 Normal 1.005-<=1.0 25 [facility] Comment on above: Performed By: #### U AMIC ####[facility] [address] [place], [place] [address]Dr. Tadeo Smyth UA PROTEIN Negative Normal NEGATIVE/ TRACE [facility] Comment on above: Performed By: #### U AMIC ####[facility] Xx[address]cp[address] [place], [place] [address]Dr. Tadeo Smyth Urobilinogen Qn (U) 0.2 {Benito'U}/dL Normal 0.2 - 1. 0 [facility] Comment on above: Performed By: #### U AMIC ####[facility] U[address] [place], [place] [address]Dr. Tadeo Smyth WBC 0-2 Abnormal NONE SEEN [facility] Comment on above: Performed By: #### U AMIC ####[facility] Rxavlejkzt[address] [place], [place] [address]Dr. Tadeo Smyth Activated partial thrombopla stin time (aPTT) in platelet poor plasma by coagulation aOrdered By: Conner Griffith on 10-26-2022 aPTT Coag (PPP) [Time] 30.8 s 25.1-36.5 [facility] Albumin [Mass/volume] in Ser um or PlasmaOrdered By: Conner Griffith on 10-26-2022 Albumin [Mass/Vol] 3.6 g/dL 3.2-5.5 [facility] Automated erythrocytes count in urine sediment (number/area)Ordered By: Conner Griffith on 10-26-2022 RBC Auto (Urine sed) [#/Area] 0-1 [HPF] 0-4 [facility] Automated leukocytes count i n urine sediment (number/area)Ordered By: Conner Griffith on 10-26-2022 WBC Auto (Urine sed) [#/Area] None seen [HPF] 0-4 [facility] Basophils Auto (Bld) [#/Vol] Ordered By: Conner Griffith on 10-26-2022 Basophils (Bld) [#/Vol] 0.0 10*3/uL 0.0-0.2 [facility] Basophils/100 WBC Auto (Bld) Ordered By: Conner Griffith on 10-26-2022 Basophils/100 WBC (Bld) 0.6 % . [facility] Bilirubin Test strip Ql (U)O rdered By: Conner Griffith on 10-26-2022 Bilirubin Ql (U) Negative Negative [facility] abdomen pelvis w conon CT abdomen pelvis w con [facility] [place] [address] CT Scan Report Signed Patient: Constantino Cardoso MR#: [id number] : 1970 Acct:[id number] Age/Sex: 52 / F ADM Date: 10/26/22 Loc: ER Room: Type: [facility] ER Attending Dr: Copies to: Conner [...] M.D.10/26/2022 7:46 AM Dictation Location: [place] [address] Transcribed By: [facility] 10/26/22 0746 Dictated By: Columba Domínguez MD 10/26/22 0738 Signed By: 10/26/22 0746 Normal [facility] Color Auto (U)Ordered By: Kevin Griffith on 10-26-2022 Color (U) Yellow Yellow [facility] Complete Blood Count Auto Di ffon 10-26-2022 Basophils (Bld) [#/Vol] 0.0 10*3/uL Normal 0.0-0.2 [facility] Comment on above: Result Comment: PERF ORMED BY: [place] [address] PATHOLOGIST INSTRUCTIONAL SUPPORT SPECIALIST ROOSEVELT KEYES M.D. Performed By: #### H EPATIC, CBC, BMP, LIPASE #### [address] Basophils/100 WBC (Bld) 0.6 % Normal . [facility] Comment on above: Performed By: #### H EPATIC, CBC, BMP, LIPASE #### [address] Eosinophils (Bld) [#/Vol] 0.2 10*3/uL Normal 0.0-0.45 [facility] Comment on above: Performed By: #### H EPATIC, CBC, BMP, LIPASE #### [address] Eosinophils/100 WBC (Bld) 3.3 % Normal . [facility] Comment on above: Performed By: #### H EPATIC, CBC, BMP, LIPASE #### [address] Erythrocyte distribution width (RBC) [Ratio] 14.5 % Normal 11.9-15.3 [facility] Comment on above: Performed By: #### H EPATIC, CBC, BMP, LIPASE #### [address] Hematocrit (Bld) [Volume fraction] 36.7 % Normal 34.0-46.4 [facility] Comment on above: Performed By: #### H EPATIC, CBC, BMP, LIPASE #### [address] Hemoglobin (Bld) [Mass/Vol] 12.1 g/dL Normal 11.8-15.4 [facility] Comment on above: Performed By: #### H EPATIC, CBC, BMP, LIPASE #### [address] Lymphocytes (Bld) [#/Vol] 1.9 10*3/uL Normal 1.00-4.8 [facility] Comment on above: Performed By: #### H EPATIC, CBC, BMP, LIPASE #### [address] Lymphocytes/100 WBC (Bld) 29.7 % Normal . [facility] Comment on above: Performed By: #### H EPATIC, CBC, BMP, LIPASE #### [address] MCH (RBC) [Entitic mass] 29.3 pg Normal 24.7-34.3 [facility] Comment on above: Performed By: #### H EPATIC, CBC, BMP, LIPASE #### [address] MCV (RBC) [Entitic vol] 88.5 fL Normal 80-100 [facility] Comment on above: Performed By: #### H EPATIC, CBC, BMP, LIPASE #### [address] Mean Corpuscular HGB Conc 33.1 g/dL Normal 32.0-35.0 [facility] Comment on above: Performed By: #### H EPATIC, CBC, BMP, LIPASE #### [address] Monocytes (Bld) [#/Vol] 0.4 10*3/uL Normal 0.0-0.8 [facility] Comment on above: Performed By: #### H EPATIC, CBC, BMP, LIPASE #### [address] Monocytes/100 WBC (Bld) 16.27 % Normal 0.00-20.00 [facility] Comment on above: Performed By: #### H EPATIC, CBC, BMP, LIPASE #### [address] Monocytes/100 WBC (Bld) 7.1 % Normal . [facility] Comment on above: Performed By: #### H EPATIC, CBC, BMP, LIPASE #### [facility] [address] [place] [address] Neutrophils (Bld) [#/Vol] 3.7 10*3/uL Normal 1.8-7.7 [facility] Comment on above: Performed By: #### H EPATIC, CBC, BMP, LIPASE #### [address] Neutrophils/100 WBC (Bld) 59.3 % Normal . [facility] Comment on above: Performed By: #### H EPATIC, CBC, BMP, LIPASE #### [address] NRBC% 0.3 /100{WBC} Normal 0-0.5 [facility] Comment on above: Performed By: #### H EPATIC, CBC, BMP, LIPASE #### [address] Platelet mean volume (Bld) [Entitic vol] 7.5 fL Normal 6.3-10.7 [facility] Comment on above: Performed By: #### H EPATIC, CBC, BMP, LIPASE #### [address] Platelets (Bld) [#/Vol] 379 10*3/uL Normal 150-450 [facility] Comment on above: Performed By: #### H EPATIC, CBC, BMP, LIPASE #### [address] RBC (Bld) [#/Vol] 4.14 10*6/uL Normal 3.60-5.00 [facility] Comment on above: Performed By: #### H EPATIC, CBC, BMP, LIPASE #### [address] WBC (Bld) [#/Vol] 6.3 10*3/uL Normal 3.8-11.6 [facility] Comment on above: Performed By: #### H EPATIC, CBC, BMP, LIPASE #### [address] Comprehensive Metabolic Pane miranda 10-26-2022 Albumin [Mass/Vol] 3.6 g/dL Normal 3.2-5.5 [facility] Comment on above: Performed By: #### H EPATIC, CBC, BMP, LIPASE #### [facility] [address] Albumin/Globulin [Mass ratio] 1.1 {ratio} Normal [facility] Comment on above: Performed By: #### H EPATIC, CBC, BMP, LIPASE #### [facility] [address] ALP [Catalytic activity/Vol] 121 U/L High 32-92 [facility] Comment on above: Performed By: #### H EPATIC, CBC, BMP, LIPASE #### [facility] [address] ALT [Catalytic activity/Vol] 18 U/L Normal 10-60 [facility] Comment on above: Performed By: #### H EPATIC, CBC, BMP, LIPASE #### [facility] [address] Anion gap [Moles/Vol] 11.3 mmol/L Normal 6.0-15.0 [facility] Comment on above: Performed By: #### H EPATIC, CBC, BMP, LIPASE #### [address] AST [Catalytic activity/Vol] 19 U/L Normal 10-42 [facility] Comment on above: Performed By: #### H EPATIC, CBC, BMP, LIPASE #### [facility] [address] [place] [address] [place] Bilirubin [Mass/Vol] 0.4 mg/dL Normal 0.3-1.2 [facility] Comment on above: Performed By: #### H EPATIC, CBC, BMP, LIPASE #### [facility] [address] Calcium [Mass/Vol] 8.9 mg/dL Normal 8.2-10.2 [facility] Comment on above: Performed By: #### H EPATIC, CBC, BMP, LIPASE #### [facility] [address] Chloride [Moles/Vol] 108 mmol/L Normal 95-114 [facility] Comment on above: Performed By: #### H EPATIC, CBC, BMP, LIPASE #### [facility] [address] CO2 [Moles/Vol] 25.1 mmol/L Normal 22.0-30.0 [facility] Comment on above: Performed By: #### H EPATIC, CBC, BMP, LIPASE #### [address] Creatinine [Mass/Vol] 0.81 mg/dL Normal 0.44-1.03 [facility] Comment on above: Performed By: #### H EPATIC, CBC, BMP, LIPASE #### [facility] [address] [place] [address] Creatinine Clr Calc Pharmacy 93.01 [facility] Comment on above: Performed By: #### H EPATIC, CBC, BMP, LIPASE #### [address] Estimated GFR ( Roberto > 60 [facility] Comment on above: Result Comment: GFR estimated reference range: According to KDOQI guidelines, <60 ml/min/1.73m2 is sufficient to diagnose a patient with chronic kidney disease. Performed By: #### H EPATIC, CBC, BMP, LIPASE #### [facility] [address] [place] [address] Estimated GFR (Non- Am > 60 [facility] Comment on above: Performed By: #### H EPATIC, CBC, BMP, LIPASE #### [facility] [address] [place] [address] Globulin (S) [Mass/Vol] 3.2 g/dL [facility] Comment on above: Performed By: #### H EPATIC, CBC, BMP, LIPASE #### [facility] [address] Glucose [Mass/Vol] 95 mg/dL Normal 70-100 [facility] Comment on above: Result Comment: [place] Glucose Reference Range is dependent on time and content of last meal. Glucose of more than 200 mg/dL in a nonstressed, ambulatory subject supports the diagnosis of Diabetes Mellitus. ADA recommended reference range Performed By: #### H EPATIC, CBC, BMP, LIPASE #### [facility] [address] Potassium [Moles/Vol] 3.4 mmol/L Low 3.5-5.1 [facility] Comment on above: Performed By: #### H EPATIC, CBC, BMP, LIPASE #### [facility] [address] Protein [Mass/Vol] 6.8 g/dL Normal 6.1-7.9 [facility] Comment on above: Performed By: #### H EPATIC, CBC, BMP, LIPASE #### [facility] [address] Sodium [Moles/Vol] 141 mmol/L Normal 136-146 [facility] Comment on above: Performed By: #### H EPATIC, CBC, BMP, LIPASE #### [facility] [address] Urea nitrogen [Mass/Vol] 18 mg/dL Normal 9-23 [facility] Comment on above: Performed By: #### H EPATIC, CBC, BMP, LIPASE #### [facility] [address] Creatinine and Glomerular fi ltration rate.predicted panel (S/P/Bld)Ordered By: Conner Griffith on 10-26-2022 Creatinine [Mass/Vol] 0.81 mg/dL 0.44-1.03 [facility] Dipstick and Microscopicon 0 10-26-2022 Appearance (U) Clear Normal Clear [facility] Comment on above: Order Comment: Name Collection Type:: Clean-Voided Midstream Performed By: #### H EPATIC, CBC, BMP, LIPASE #### [facility] [address] Bacteria,Urine None Seen Normal None Seen [facility] Comment on above: Order Comment: Name Collection Type:: Clean-Voided Midstream Performed By: #### H EPATIC, CBC, BMP, LIPASE #### [facility] [address] [place] [address] Bilirubin,Urine Negative Normal Negative [facility] Comment on above: Order Comment: Name Collection Type:: Clean-Voided Midstream Performed By: #### H EPATIC, CBC, BMP, LIPASE #### [address] Color (U) Yellow Normal Yellow [facility] Comment on above: Order Comment: Name Collection Type:: Clean-Voided Midstream Performed By: #### H EPATIC, CBC, BMP, LIPASE #### [address] Glucose Ql (U) Normal Normal Normal [facility] Comment on above: Order Comment: Name Collection Type:: Clean-Voided Midstream Performed By: #### H EPATIC, CBC, BMP, LIPASE #### [address] Hyaline Casts,Urine None Seen Normal 0-8 [facility] Comment on above: Order Comment: Name Collection Type:: Clean-Voided Midstream Result Comment: PERF ORMED BY: [place] [address] PATHOLOGIST INSTRUCTIONAL SUPPORT SPECIALIST ROOSEVELT KEYES M.D. Performed By: #### H EPATIC, CBC, BMP, LIPASE #### [address] Ketones Ql (U) Negative Normal Negative [facility] Comment on above: Order Comment: Name Collection Type:: Clean-Voided Midstream Performed By: #### H EPATIC, CBC, BMP, LIPASE #### [address] Leukocyte esterase Test strip Ql (U) 1+ High Negative [facility] Comment on above: Order Comment: Name Collection Type:: Clean-Voided Midstream Performed By: #### H EPATIC, CBC, BMP, LIPASE #### [address] Nitrite,Urine Negative Normal Negative [facility] Comment on above: Order Comment: Name Collection Type:: Clean-Voided Midstream Performed By: #### H EPATIC, CBC, BMP, LIPASE #### [address] Occult Blood,Urine Negative Normal Negative [facility] Comment on above: Order Comment: Name Collection Type:: Clean-Voided Midstream Result Comment: PERF ORMED BY: [place] [address] PATHOLOGIST INSTRUCTIONAL SUPPORT SPECIALIST ROOSEVELT KEYES M.D. Performed By: #### H EPATIC, CBC, BMP, LIPASE #### [address] pH (U) 6.5 [pH] Normal 5.0-9.0 [facility] Comment on above: Order Comment: Name Collection Type:: Clean-Voided Midstream Performed By: #### H EPATIC, CBC, BMP, LIPASE #### [address] Protein,Urine Negative Normal Negative [facility] Comment on above: Order Comment: Name Collection Type:: Clean-Voided Midstream Performed By: #### H EPATIC, CBC, BMP, LIPASE #### [address] RBC LM.HPF (Urine sed) [#/Area] 0 /[HPF] Normal 0-4 [facility] Comment on above: Order Comment: Name Collection Type:: Clean-Voided Midstream Performed By: #### H EPATIC, CBC, BMP, LIPASE #### [address] Specificy [place],Urine 1.019 Normal 1.001-1.030 [facility] Comment on above: Order Comment: Name Collection Type:: Clean-Voided Midstream Performed By: #### H EPATIC, CBC, BMP, LIPASE #### [address] Squamous Epithelial Cell,Urine 1-2 Normal 0-2 [facility] Comment on above: Order Comment: Name Collection Type:: Clean-Voided Midstream Performed By: #### H EPATIC, CBC, BMP, LIPASE #### [facility] [address] Urobilinogen,Urine Normal Normal Normal [facility] Comment on above: Order Comment: Name Collection Type:: Clean-Voided Midstream Performed By: #### H EPATIC, CBC, BMP, LIPASE #### [facility] [address] WBC,Urine None Seen Normal 0-4 [facility] Comment on above: Order Comment: Name Collection Type:: Clean-Voided Midstream Performed By: #### H EPATIC, CBC, BMP, LIPASE #### [facility] [address] [place] [address] Eosinophils Auto (Bld) [#/Vo l]Ordered By: Conner Griffith on 10-26-2022 Eosinophils (Bld) [#/Vol] 0.2 10*3/uL 0.0-0.45 [facility] Eosinophils/100 WBC Auto (Bl d)Ordered By: Conner Griffith on 10-26-2022 Eosinophils/100 WBC (Bld) 3.3 % . [facility] Erythrocyte distribution wid th Auto (RBC) [Ratio]Ordered By: Conner Griffith on 10-26-2022 Erythrocyte distribution width (RBC) [Ratio] 14.5 % 11.9-15.3 [facility] Estimated glomerular filtrat ion rate (GFR) non- AmericanOrdered By: Conner Griffith on 10-26-2022 GFR/1.73 sq M.predicted among non-blacks MDRD (S/P/Bld) [Vol rate/Area] > 60 mL/Min [facility] Globulin Calc (S) [Mass/Vol] Ordered By: Conner Griffith on 10-26-2022 Globulin (S) [Mass/Vol] 3.2 g/dL [facility] Hematocrit Auto (Bld) [Volum e fraction]Ordered By: Conner Griffith on 10-26-2022 Hematocrit (Bld) [Volume fraction] 36.7 % 34.0-46.4 [facility] Hemoglobin [Mass/volume] in BloodOrdered By: Conner Griffith on 10-26-2022 Hemoglobin (Bld) [Mass/Vol] 12.1 g/dL 11.8-15.4 [facility] Ketones Auto test strip (U) [Mass/Vol]Ordered By: Conner Griffith on 10-26-2022 Ketones (U) [Mass/Vol] Negative Negative [facility] - Chemistry and C hemistry - challengeOrdered By: Conner Griffith on 10-26-2022 Lipase [Catalytic activity/Vol] 37.0 U/L [facility] - CoagulationOrde red By: Conner Griffith on 10-26-2022 PT Coag (PPP) [Time] 10.6 s 9.0-12.9 [facility] - UrinalysisOrder ed By: Conner Griffith on 10-26-2022 Hyaline casts LM Ql (Urine sed) None seen [LPF] 0-8 [facility] Lactic Acidon 10-26-2022 Lactate [Moles/Vol] 1.0 mmol/L Normal 0.5-2.2 [facility] Comment on above: Result Comment: PERF ORMED BY: [place] [address] PATHOLOGIST INSTRUCTIONAL SUPPORT SPECIALIST ROOSEVELT KEYES M.D. Performed By: #### H EPATIC, CBC, BMP, LIPASE #### [place] [address] [place] Leukocytes [#/volume] correc jun for nucleated erythrocytes in Blood by Automated counOrdered By: Conner Griffith on 10-26-2022 WBC corrected for nucl RBC Auto (Bld) [#/Vol] 6.3 10*3/uL 3.8-11.6 [facility] Lipaseon 10-26-2022 Lipase [Catalytic activity/Vol] 37.0 U/L Normal [facility] Comment on above: Result Comment: PERF ORMED BY: [place] [address] PATHOLOGIST INSTRUCTIONAL SUPPORT SPECIALIST ROOSEVELT KEYES M.D. Performed By: #### H EPATIC, CBC, BMP, LIPASE #### [address] Lymphocytes Auto (Bld) [#/Vo l]Ordered By: Conner Griffith on 10-26-2022 Lymphocytes (Bld) [#/Vol] 1.9 10*3/uL 1.00-4.8 [facility] Lymphocytes/100 WBC Auto (Bl d)Ordered By: Conner Griffith on 10-26-2022 Lymphocytes/100 WBC (Bld) 29.7 % . [facility] MCH Auto (RBC) [Entitic mass ]Ordered By: Conner Griffith on 10-26-2022 MCH (RBC) [Entitic mass] 29.3 pg 24.7-34.3 [facility] MCHC Auto (RBC) [Mass/Vol]Or dered By: Conner Griffith on 10-26-2022 MCHC (RBC) [Mass/Vol] 33.1 g/dL 32.0-35.0 [facility] MCV Auto (RBC) [Entitic vol] Ordered By: Conner Griffith on 10-26-2022 MCV (RBC) [Entitic vol] 88.5 fL 80-100 [facility] Monocyte distribution width [Entitic volume] in Blood by AutomatedOrdered By: Conner Griffith on 10-26-2022 Monocyte distribution width Auto (Bld) [Entitic vol] 16.27 % 0.00-20.00 [facility] Monocytes Auto (Bld) [#/Vol] Ordered By: Conner Griffith on 10-26-2022 Monocytes (Bld) [#/Vol] 0.4 10*3/uL 0.0-0.8 [facility] Monocytes/100 WBC Auto (Bld) Ordered By: Conner Griffith on 10-26-2022 Monocytes/100 WBC (Bld) 7.1 % . [facility] Neutrophils Auto (Bld) [#/Vo l]Ordered By: Conner Griffith on 10-26-2022 Neutrophils (Bld) [#/Vol] 3.7 10*3/uL 1.8-7.7 [facility] Neutrophils/100 WBC Auto (Bl d)Ordered By: Conner Griffith on 10-26-2022 Neutrophils/100 WBC (Bld) 59.3 % . [facility] Nitrite Test strip Ql (U)Ord ered By: Conner Griffith on 10-26-2022 Nitrite Ql (U) Negative Negative [facility] No Panel InformationOrdered By: Conner Griffith on 10-26-2022 Estimated GFR () > 60 mL/Min [facility] Comment on above: GFR estimated refere nce range: According to KDOQI guidelines, <60 ml/min/1.73m2 is sufficient to diagnose a patient with chronic kidney disease. Pharmacy Creatinine Clearance (Chem 93.01 [facility] Nucleated erythrocytes [Pres ence] in Blood by Automated countOrdered By: Conner Griffith on 10-26-2022 Nucleated RBC Auto Ql (Bld) 0.3 /100{WBC} 0-0.5 [facility] Partial Thromboplastin Timeo n 10-26-2022 aPTT Coag (Bld) [Time] 30.8 s Normal 25.1-36.5 [facility] Comment on above: Result Comment: PERF ORMED BY: [place] [address] PATHOLOGIST INSTRUCTIONAL SUPPORT SPECIALIST ROOSEVELT KEYES M.D. Performed By: #### H EPATIC, CBC, BMP, LIPASE #### [address] Platelet mean volume Auto (B ld) [Entitic vol]Ordered By: Conner Griffith on 10-26-2022 Platelet mean volume (Bld) [Entitic vol] 7.5 fL 6.3-10.7 [facility] Platelet poor plasma interna tional normalized ratio (INR) by coagulation assay (relatOrdered By: Conner Griffith on 10-26-2022 INR Coag (PPP) [Relative time] 0.9 {INR} [facility] Comment on above: INR Therapeutic Rang [...] 10-26-2022 Platelets (Bld) [#/Vol] 379 10*3/uL 150-450 [facility] Protein Auto test strip (U) [Mass/Vol]Ordered By: Conner Griffith on 10-26-2022 Protein (U) [Mass/Vol] Negative Negative [facility] Protein [Mass/volume] in Ser um or PlasmaOrdered By: Conner Griffith on 10-26-2022 Protein [Mass/Vol] 6.8 g/dL 6.1-7.9 [facility] Prothrombin Time INRon 10-26 INR Coag (PPP) [Relative time] 0.9 {INR} Normal [facility] Comment on above: Result Comment: INR [...] #### H EPATIC, CBC, BMP, LIPASE #### [facility] [address] [place] [address] [place] PT Coag (PPP) [Time] 10.6 s Normal 9.0-12.9 [facility] Comment on above: Performed By: #### H EPATIC, CBC, BMP, LIPASE #### [facility] [address] [place] [address] [place] RBC Auto (Bld) [#/Vol]Ordere d By: Conner Griffith on 10-26-2022 RBC (Bld) [#/Vol] 4.14 10*6/uL 3.60-5.00 [facility] Serum or plasma alanine cooley otransferase measurement without P-5'-P (enzymatic activiOrdered By: Conner Griffith on 10-26-2022 ALT No additional P-5'-P [Catalytic activity/Vol] 18 U/L 10-60 [facility] Serum or plasma albumin/glob ulin mass ratioOrdered By: Conner Griffith on 10-26-2022 Albumin/Globulin [Mass ratio] 1.1 {ratio} [facility] Serum or plasma alkaline augustin sphatase measurement (enzymatic activity/volume)Ordered By: Conner Griffith on 10-26-2022 ALP [Catalytic activity/Vol] 121 U/L 32-92 [facility] Serum or plasma anion gap de terminationOrdered By: Conner Griffith on 10-26-2022 Anion gap [Moles/Vol] 11.3 mmol/L 6.0-15.0 [facility] Serum or plasma aspartate am inotransferase measurement (enzymatic activity/volume)Ordered By: Conner Griffith on 10-26-2022 AST [Catalytic activity/Vol] 19 U/L 10-42 [facility] Serum or plasma calcium julee urement (mass/volume)Ordered By: Conner Griffith on 10-26-2022 Calcium [Mass/Vol] 8.9 mg/dL 8.2-10.2 [facility] Serum or plasma chloride julio surement (moles/volume)Ordered By: Conner Griffith on 10-26-2022 Chloride [Moles/Vol] 108 mmol/L 95-114 [facility] Serum or plasma glucose julee urement (mass/volume)Ordered By: Conner Griffith on 10-26-2022 Glucose [Mass/Vol] 95 mg/dL 70-100 [facility] Comment on above: ADA recommended refe rence rangeRandom Glucose Reference Range is dependent on time and content of last meal. Glucose of more than 200 mg/dL in a nonstressed, ambulatory subject supports the diagnosis of Diabetes Mellitus. Serum or plasma potassium me asurement (moles/volume)Ordered By: Conner Griffith on 10-26-2022 Potassium [Moles/Vol] 3.4 mmol/L 3.5-5.1 [facility] Serum or plasma sodium measu rement (moles/volume)Ordered By: Conner Griffith on 10-26-2022 Sodium [Moles/Vol] 141 mmol/L 136-146 [facility] Serum or plasma total biliru bin measurement (mass/volume)Ordered By: Conner Griffith on 10-26-2022 Bilirubin [Mass/Vol] 0.4 mg/dL 0.3-1.2 [facility] Serum or plasma total carbon dioxide measurement (moles/volume)Ordered By: Conner Griffith on 10-26-2022 CO2 [Moles/Vol] 25.1 mmol/L 22.0-30.0 [facility] Serum or plasma urea nitroge n measurement (mass/volume)Ordered By: oCnner Griffith on 10-26-2022 Urea nitrogen [Mass/Vol] 18 mg/dL 9- [facility] Specific gravity Auto test s trip (U) [Rel density]Ordered By: Conner Griffith on 10-26-2022 Specific gravity (U) [Rel density] 1.019 1.001-1.030 [facility] Squamous epithelial cells de tection in urine sediment by light microscopyOrdered By: Conner Griffith on 10-26-2022 Epithelial cells.squamous LM Ql (Urine sed) 1-2 [HPF] 0-2 [facility] Urine bacteria detection by automated methodOrdered By: Conner Griffith on 10-26-2022 Bacteria Auto Ql (U) None seen None Seen [facility] Urine clarity by refractomet ry automatedOrdered By: Conner Griffith on 10-26-2022 Clarity Refractometry automated (U) Clear Clear [facility] Urine glucose measurement by automated test strip (mass/volume)Ordered By: Conner Griffith on 10-26-2022 Glucose Auto test strip (U) [Mass/Vol] Normal mg/dL Normal [facility] Urine hemoglobin detection b y automated test stripOrdered By: Conner Griffith on 10-26-2022 Hemoglobin Auto test strip Ql (U) Negative Negative [facility] Urine lactic acid measuremen tOrdered By: Conner Griffith on 10-26-2022 Lactate (U) [Moles/Vol] 1.0 mmol/L 0.5-2.2 [facility] Urine leukocyte esterase det ection by automated test stripOrdered By: Conner Griffith on 10-26-2022 Leukocyte esterase Auto test strip Ql (U) 1+ Negative [facility] Urobilinogen Auto test strip (U) [Mass/Vol]Ordered By: Conner Griffith on 10-26-2022 Urobilinogen (U) [Mass/Vol] Normal mg/dL Normal [facility] WBC Auto (Bld) [#/Vol]Ordere d By: Conner Griffith on 10-26-2022 WBC (Bld) [#/Vol] 6.3 10*3/uL 3.8-11.6 [facility] pH Auto test strip (U)Ordere d By: Conner Griffith on 10-26-2022 pH (U) 6.5 [pH] 5.0-9.0 [facility] CBC AUTO DIFFon 09-21-2022 BASO # 0.0 103/ul Normal 0.0-0.1 [facility] Comment on above: Performed By: #### C BC ####[facility] [address] [place], [place] [address]Dr. Tadeo Smyth Basophils/100 WBC (Bld) 0.4 % Normal 0.2-2.0 [facility] Comment on above: Performed By: #### C BC ####[facility] [address] [place], [place] [address]DrNeo Smyth EO # 0.1 103/ul Normal 0.0-0.7 [facility] Comment on above: Performed By: #### C BC ####[facility] Razirwhucs[address] [place], [place] [address]Dr. Tadeo Smyth Eosinophils/100 WBC (Bld) 1.8 % Normal 0.9-7.0 [facility] Comment on above: Performed By: #### C BC ####[facility] [address] [place], [place] [address]DrNeo Smyth Erythrocyte distribution width (RBC) [Ratio] 13.8 % Normal 11.0-15.0 [facility] Comment on above: Performed By: #### C BC ####[facility] [address] [place], [place] [address]DrNeo Smyth Hematocrit (Bld) [Volume fraction] 41.0 % Normal 36.0-48.0 [facility] Comment on above: Performed By: #### C BC ####[facility] [address] [place] [address]DrNeo Smyth Hemoglobin (Bld) [Mass/Vol] 13.3 g/dL Normal 12.0-16.0 [facility] Comment on above: Performed By: #### C BC ####[facility] [address] [place], [place] [address]DrNeo Smyth IG # 0.01 10e3/ul Normal 0.00-0.03 [facility] Comment on above: Performed By: #### C BC ####[facility] [address] [place], [place] [address]DrNeo Smyth IG % 0.1 % Normal 0.0-0.5 [facility] Comment on above: Performed By: #### C BC ####[facility] Cl[address] [place], [place] [address]DrNeo Smyth LYMPH # 1.7 103/ul Normal 1.2-3.8 [facility] Comment on above: Performed By: #### C BC ####[facility] [address] [place], [place] [address]DrNeo Smyth Lymphocytes/100 WBC (Bld) 24.8 % Normal 20.5-60.0 [facility] Comment on above: Performed By: #### C BC ####[facility] [address] [place], [place] [address]DrNeo Smyth MANUAL DIFF REQ NO Normal [facility] Comment on above: Performed By: #### C BC ####[facility] [address] [place], [place] [address]DrNeo Smyth MCH (RBC) [Entitic mass] 29.0 pg Normal 26.7-34.0 [facility] Comment on above: Performed By: #### C BC ####[facility] [address] [place], [place] [address]DrNeo Smyth MCHC (RBC) [Mass/Vol] 32.4 g/dL Normal 29.9-35.2 [facility] Comment on above: Performed By: #### C BC ####[facility] [address] [place] [address]DrNeo Smyth MCV (RBC) [Entitic vol] 89.3 fL Normal 81.0-99.0 [facility] Comment on above: Performed By: #### C BC ####[facility] [address] [place] [address]DrNeo Smyth MONO # 0.5 103/ul Normal 0.3-0.8 [facility] Comment on above: Performed By: #### C BC ####[facility] [address] [place] [address]DrNeo Smyth Monocytes/100 WBC (Bld) 6.9 % Normal 1.7-12.0 [facility] Comment on above: Performed By: #### C BC ####[facility] [address] [place], [place] [address]DrNeo Smyth NEUT # 4.5 103/ul Normal 1.4-6.5 [facility] Comment on above: Performed By: #### C BC ####[facility] [address] [place], [place] [address]DrNeo Smyth Neutrophils/100 WBC (Bld) 66.0 % Normal 43.0-75.0 [facility] Comment on above: Performed By: #### C BC ####[facility] [address]sb[address] [place], [place] [address]DrNeo Smyth Platelet mean volume (Bld) [Entitic vol] 8.8 fL Critically low 9.5-13.5 [facility] Comment on above: Performed By: #### C BC ####[facility] [address]ws[address] [place], [place] [address]DrNeo Smyth PLT 384 103/ul Normal 150-450 [facility] Comment on above: Performed By: #### C BC ####[facility] [address] [place] [id number] Smyth RBC 4.59 106/ul Normal 4.20-5.40 [facility] Comment on above: Performed By: #### C BC ####[facility] [address] [place] [address]Dr. Tadeo Smyth WBC 6.8 103/ul Normal 4.0-11.0 [facility] Comment on above: Performed By: #### C BC ####[facility] [address] [place] [address]DrNeo Smyth PROF CHEM 8 (BAS METB)on Anion gap [Moles/Vol] 13.8 mmol/L Normal [facility] Comment on above: Performed By: #### B MP ####[facility] [address] [place], [place] [address]DrNeo Smyth Calcium [Mass/Vol] 9.6 mg/dL Normal 8.5-10.1 [facility] Comment on above: Performed By: #### B MP ####[facility] [address]aw[address] [place], [place] [address]DrNeo Smyth Chloride [Moles/Vol] 106 mmol/L Normal 98-107 [facility] Comment on above: Performed By: #### B MP ####[facility] [address] [place], [place] [address]DrNeo Smyth CO2 [Moles/Vol] 25.9 mmol/L Normal 21.0-32.0 [facility] Comment on above: Performed By: #### B MP ####[facility] Y[address] [place], [place] [address]DrNeo Smyth Creatinine [Mass/Vol] 0.92 mg/dL Normal 0.55-1.02 [facility] Comment on above: Performed By: #### B MP ####[facility] [address] [place] [address]DrNeo Smyth EGFR-AF SRI LANKAN >60 Normal >=60 [facility] Comment on above: Performed By: #### B MP ####[facility] [address] [place] [address]Dr. Tadeo Smyth EGFR-NON AF SRI LANKAN >60 Normal >=60 [facility] Comment on above: Performed By: #### B MP ####[facility] [address] [place] [address]Dr. Tadeo Smyth Glucose [Mass/Vol] 98 mg/dL Normal 74-106 [facility] Comment on above: Performed By: #### B MP ####[facility] [address] [place] [address]Dr. Tadeo Smyth Potassium [Moles/Vol] 3.7 mmol/L Normal 3.5-5.1 [facility] Comment on above: Performed By: #### B MP ####[facility] [address] [place] [address]Dr. Tadeo Smyth Sodium [Moles/Vol] 142 mmol/L Normal 136-145 [facility] Comment on above: Performed By: #### B MP ####[facility] [address] [place], [place] [address]Dr. Tadeo Haja Urea nitrogen [Mass/Vol] 19.0 mg/dL Critically high 7.0-18.0 [facility] Comment on above: Performed By: #### B MP ####[facility] [address] [place], [place] [address]Dr. Tadeo Smyth Urea nitrogen/Creatinine [Mass ratio] 20.7 mg/mg Normal [facility] Comment on above: Performed By: #### B MP ####[facility] I[address] [place], [place] [address]Dr. Tadeo Haja XR KUB 1 VIEWon 09-21-2022 XR KUB 1 VIEW Normal [facility] AMYLASEon 09-18-2022 Amylase [Catalytic activity/Vol] 58 U/L Normal 25-115 [facility] Comment on above: Performed By: #### L IPA, CMP, VIJI ####[facility] [address] [place], [place] [address]Dr. Tadeo Haja CBC AUTO DIFFon 09-18-2022 BASO # 0.0 103/ul Normal 0.0-0.1 [facility] Comment on above: Performed By: #### C BC ####[facility] [address] [place] [id number]. Tadeo Smyth Basophils/100 WBC (Bld) 0.3 % Normal 0.2-2.0 [facility] Comment on above: Performed By: #### C BC ####[facility] [address] [place] [id number]. Tadeo Smyth EO # 0.1 103/ul Normal 0.0-0.7 [facility] Comment on above: Performed By: #### C BC ####[facility] [address] [place] [address]Dr. Tadeo Smyth Eosinophils/100 WBC (Bld) 1.8 % Normal 0.9-7.0 [facility] Comment on above: Performed By: #### C BC ####[facility] [address] [place], [place] [address]Dr. Tadeo Smyth Erythrocyte distribution width (RBC) [Ratio] 13.7 % Normal 11.0-15.0 [facility] Comment on above: Performed By: #### C BC ####[facility] [address]xn[address] [place], [place] [address]Dr. Tadeo Smyth Hematocrit (Bld) [Volume fraction] 37.4 % Normal 36.0-48.0 [facility] Comment on above: Performed By: #### C BC ####[facility] [address] [place], [place] [id number]. Tadeo Smyth Hemoglobin (Bld) [Mass/Vol] 12.3 g/dL Normal 12.0-16.0 [facility] Comment on above: Performed By: #### C BC ####[facility] [address] [place] [id number]. Tadeo Smyth IG # 0.02 10e3/ul Normal 0.00-0.03 [facility] Comment on above: Performed By: #### C BC ####[facility] [address] [place] [address]Dr. Tadeo Smyth IG % 0.3 % Normal 0.0-0.5 [facility] Comment on above: Performed By: #### C BC ####[facility] [address] [place] [id number]. Tadeo Haja LYMPH # 2.2 103/ul Normal 1.2-3.8 [facility] Comment on above: Performed By: #### C BC ####[facility] [address]we[address] [place] [id number]. Tadeo Haja Lymphocytes/100 WBC (Bld) 29.3 % Normal 20.5-60.0 [facility] Comment on above: Performed By: #### C BC ####[facility] [address] [place] [address]Dr. Tadeo Haja MANUAL DIFF REQ NO Normal [facility] Comment on above: Performed By: #### C BC ####[facility] [address] [place] [address]Dr. Tadeo Haja MCH (RBC) [Entitic mass] 29.0 pg Normal 26.7-34.0 [facility] Comment on above: Performed By: #### C BC ####[facility] [address] [place], [place] [address]Dr. Tadeo Smyth MCHC (RBC) [Mass/Vol] 32.9 g/dL Normal 29.9-35.2 [facility] Comment on above: Performed By: #### C BC ####[facility] [address]nex[address] [place] [address]Dr. Tadeo Haja MCV (RBC) [Entitic vol] 88.2 fL Normal 81.0-99.0 [facility] Comment on above: Performed By: #### C BC ####[facility] [address] [place] [address]Dr. Tadeo Haja MONO # 0.5 103/ul Normal 0.3-0.8 [facility] Comment on above: Performed By: #### C BC ####[facility] [address] [place] [address]Dr. Tadeo Haja Monocytes/100 WBC (Bld) 6.4 % Normal 1.7-12.0 [facility] Comment on above: Performed By: #### C BC ####[facility] [address] [place] [id number]. Tadeo Smyth NEUT # 4.7 103/ul Normal 1.4-6.5 [facility] Comment on above: Performed By: #### C BC ####[facility] [address] [place] [address]Dr. Tadeo Smyth Neutrophils/100 WBC (Bld) 61.9 % Normal 43.0-75.0 [facility] Comment on above: Performed By: #### C BC ####[facility] [address] [place] [address]Dr. Tadeo Smyth Platelet mean volume (Bld) [Entitic vol] 9.0 fL Critically low 9.5-13.5 [facility] Comment on above: Performed By: #### C BC ####[facility] [address] [place] [address]Dr. Tadeo Smyth PLT 395 103/ul Normal 150-450 [facility] Comment on above: Performed By: #### C BC ####[facility] [address] [place], [place] [address]Dr. Tadeo Smyth RBC 4.24 106/ul Normal 4.20-5.40 [facility] Comment on above: Performed By: #### C BC ####[facility] Kr[address]mpocj[address] [place], [place] [address]Dr. Tadeo Smyth WBC 7.6 103/ul Normal 4.0-11.0 [facility] Comment on above: Performed By: #### C BC ####[facility] [address] [place], [place] [address]Dr. Tadeo Smyth CT ABD/PELV W CONon 09-18-[address] ABD/PELV W CON Normal [facility] ER URINE PROFILEon 3 Bilirubin Ql (U) SMALL Abnormal NEGATIVE [facility] Comment on above: Performed By: #### KAROL MERCHANT ####[facility] [address] [place] [address]Dr. Margotnicole Smyth Clarity (U) CLEAR Normal CLEAR [facility] Comment on above: Performed By: #### KAROL MERCHANT ####[facility] [address] [place] [address]Dr. Tadeo Smyth Color (U) DK. YELLOW Normal YELLOW [facility] Comment on above: Performed By: #### SANDRO MERCHANTRO ####[facility] [address] [place] [address]Dr. Tadeo Smyth ERUAHD A micrscopic examina tion will be performed if indicated. Normal [facility] Comment on above: Performed By: #### SANDRO MERCHANTRO ####[facility] [address] [place], [place] [address]Dr. Tadeo Smyth Glucose Ql (U) Negative Normal NEGATIVE [facility] Comment on above: Performed By: #### SANDRO MERCHANTRO ####[facility] I[address]ch[address]usa[address] [place], [place] [address]Dr. Tadeo Smyth Hemoglobin Ql (U) SMALL Abnormal NEGATIVE [facility] Comment on above: Performed By: #### SANRDO MERCHANTRO ####[facility] Keir[address]usg[address] [place], [place] [address]Dr. Tadeo Smyth Ketones Ql (U) Negative Normal NEGATIVE [facility] Comment on above: Performed By: #### SANDRO MERCHANTRO ####[facility] T[address]lptjios[address] [place], [place] [address]Dr. Tadeo Smyth LEUKOCYTES Negative Normal NEGATIVE [facility] Comment on above: Performed By: #### SANDRO MERCHANTRO ####[facility] To[address]hi[address] [place], [place] [address]Dr. Tadeo Smyth Nitrite Ql (U) Negative Normal NEGATIVE [facility] Comment on above: Performed By: #### SANDRO MERCHANTRO ####[facility] Gr[address]rz[address] [place], [place] [address]Dr. Tadeo Smyth pH (U) 5.5 [pH] Normal 5-9 [facility] Comment on above: Performed By: #### SANDRO MERCHANTRO ####[facility] [address] [place], [place] [address]Dr. Tadeo Smyth SPEC GRAVITY >=1.030 Abnormal 1.005-<=1.0 25 [facility] Comment on above: Performed By: #### KAROL MERCHANT ####[facility] [address] [place] [address]Dr. Tadeo Smyth UA PROTEIN TRACE Normal NEGATIVE/ TRACE [facility] Comment on above: Performed By: #### KAROL MERCHANT ####[facility] [address] [place] [address]Dr. Tadeo Smyth UR MICRO IND INDICATED Normal [facility] Comment on above: Performed By: #### KAROL MERCHANT ####[facility] [address]hs[address] [place], [place] [address]Dr. Tadeo Smyth Urobilinogen Qn (U) 0.2 {Benito'U}/dL Normal 0.2 - 1. 0 [facility] Comment on above: Performed By: #### KAROL MERCHANT ####[facility] Hut[address]ulfqz[address] [place], [place] [address]Dr. Tadeo Smyth LACTATE/LACTIC ACIDon 2022 Lactate [Moles/Vol] 1.1 mmol/L Normal 0.4-1.9 [facility] Comment on above: Performed By: #### L ACT ####[facility] [address] [place], [place] [address]Dr. Tadeo Smyth LIPASEon 09-18-2022 Lipase [Catalytic activity/Vol] 75.0 U/L Normal 73.0-393.0 [facility] Comment on above: Performed By: #### L IPA, CMP, VIJI ####[facility] [address]nwf[address] [place], [place] [address]Dr. Tadeo Smyth PROF 14(COMP METB)on 023 Albumin [Mass/Vol] 3.4 g/dL Normal 3.4-5.0 [facility] Comment on above: Performed By: #### L IPA, CMP, VIJI ####[facility] [address]vc[address]uw[address] [place], [place] [address]Dr. Tadeo Smyth Albumin/Globulin [Mass ratio] 0.9 {ratio} Normal [facility] Comment on above: Performed By: #### L IPA, CMP, VIJI ####[facility] [address] [place] [address]Dr. Tadeo Smyth ALP [Catalytic activity/Vol] 164 U/L Critically high 46-116 [facility] Comment on above: Performed By: #### L IPA, CMP, VIJI ####[facility] [address] [place] [address]Dr. Tadeo Smyth ALT [Catalytic activity/Vol] 29 U/L Normal 14-59 [facility] Comment on above: Performed By: #### L IPA, CMP, VIJI ####[facility] [address]fw[address] [place], [place] [address]Dr. Tadeo Smyth Anion gap [Moles/Vol] 12.3 mmol/L Normal [facility] Comment on above: Performed By: #### L IPA, CMP, VIJI ####[facility] [address]uscqx[address] [place], [place] [address]Dr. Tadeo Smyth AST [Catalytic activity/Vol] 30 U/L Normal 15-37 [facility] Comment on above: Performed By: #### L IPA, CMP, VIJI ####[facility] [address]zoht[address] [place], [place] [address]Dr. Tadeo Smyth Bilirubin [Mass/Vol] 0.3 mg/dL Normal 0.2-1.0 [facility] Comment on above: Performed By: #### L IPA, CMP, VIJI ####[facility] [address]gtz[address] [place], [place] [address]Dr. Tadeo Smyth Calcium [Mass/Vol] 8.9 mg/dL Normal 8.5-10.1 [facility] Comment on above: Performed By: #### L IPA, CMP, VIJI ####[facility] [facility] [address] [place], [place] [address]Dr. Tadeo Smyth Chloride [Moles/Vol] 103 mmol/L Normal 98-107 [facility] Comment on above: Performed By: #### L IPA, CMP, VIJI ####[facility] Garxpavswr[address] [place], [place] [address]Dr. Tadeo Smyth CO2 [Moles/Vol] 27.8 mmol/L Normal 21.0-32.0 [facility] Comment on above: Performed By: #### L IPA CMP, VIJI ####[facility] [address]xvwexs[address] [place] [address]Dr. Tadeo Smyth Creatinine [Mass/Vol] 0.89 mg/dL Normal 0.55-1.02 [facility] Comment on above: Performed By: #### L IPA CMP, VIJI ####[facility] Ofymawrzxl[address] [place] [address]Dr. Tadeo Smyth EGFR-AF SRI LANKAN >60 Normal >=60 [facility] Comment on above: Performed By: #### L IPA CMP, VIJI ####[facility] Kpkchaafkd[address] [place] [address]Dr. Tadeo Smyth EGFR-NON AF SRI LANKAN >60 Normal >=60 [facility] Comment on above: Performed By: #### L IPA CMP, VIJI ####[facility] Piirmmztkh[address] [place] [address]Dr. Tadeo Smyth Globulin (S) [Mass/Vol] 3.9 g/dL Normal [facility] Comment on above: Performed By: #### L IPA CMP, VIJI ####[facility] Wmsdmxswmq[address] [place] [address]Dr. Tadeo Smyth Glucose [Mass/Vol] 96 mg/dL Normal 74-106 [facility] Comment on above: Performed By: #### L IPA CMP, VIJI ####[facility] Hxsndvcflw50[address] [place] [address]Dr. Tadeo Smyth Potassium [Moles/Vol] 4.1 mmol/L Normal 3.5-5.1 [facility] Comment on above: Performed By: #### L IPA CMP, VIJI ####[facility] Xxfmevbdax[address] [place] [address]Dr. Tadeo Symth Protein [Mass/Vol] 7.3 g/dL Normal 6.4-8.2 [facility] Comment on above: Performed By: #### L IPA, CMP, VIJI ####[facility] Qnfbtyrffr12[address] [place] [address]Dr. Tadeo Smyth Sodium [Moles/Vol] 139 mmol/L Normal 136-145 [facility] Comment on above: Performed By: #### L DIANN HALL, VIJI ####[facility] Yey[address]suorq[address] [place] [address]Dr. Tadeo Smyth Urea nitrogen [Mass/Vol] 19.0 mg/dL Critically high 7.0-18.0 [facility] Comment on above: Performed By: #### L DIANN HALL, VIJI ####[facility] Nugvpawzti[address] [place] [address]Dr. Tadeo Smyth Urea nitrogen/Creatinine [Mass ratio] 21.3 mg/mg Normal [facility] Comment on above: Performed By: #### L DIANN HALL, VIJI ####[facility] [address]bp[address]aw[address] [place], [place] [address]Dr. Tadeo Smyth URINE MICROSCOPIC ONLYon BACTERIA TRACE Abnormal NONE SEEN [facility] Comment on above: Performed By: #### Matthew FRANCISCO UMICRO ####[facility] Vxuoecnolu[address] [place], [place] [address]Dr. Tadeo Smyth Bacteria identified Cx Nom (U) NOT INDICATED Normal [facility] Comment on above: Performed By: #### Matthew FRANCISCO UMICRO ####[facility] Spyqzstgyv[address] [place] [address]Dr. Tadeo Smyth CAST NONE SEEN Normal NONE SEEN [facility] Comment on above: Performed By: #### Matthew FRANCISCO UMICRO ####[facility] Vojviwshxo04[address] [place], [place] [address]Dr. Tadeo Smyth Crystals LM Nom (Urine sed) SEEN Abnormal NONE SEEN [facility] Comment on above: Performed By: #### Matthew FRANCISCO UMICRO ####[facility] Hvuopiwifs4[address] [place], [place] [address]Dr. Tadeo Smyth Epithelial cells LM Ql (Urine sed) RARE Normal NONE SEEN /RARE [facility] Comment on above: Performed By: #### Matthew FRANCISCO UMICRO ####[facility] Ppwifvdfuh6507 [place] [address]Dr. Tadeo Smyth MUCOUS TRACE Abnormal NONE SEEN [facility] Comment on above: Performed By: #### KAROL MERCHANT ####[facility] Mgbzwxvtkd035[address] [place] [address]Dr. Tadeo Smyth RBC 0-2 Normal 0-2 [facility] Comment on above: Performed By: #### KAROL MERCHANT ####[facility] Osjydthyuf[address] [place], [place] [id number]. Tadeo Smyth WBC 0-2 Abnormal NONE SEEN [facility] Comment on above: Performed By: #### KAROL MERCHANT ####[facility] Jnseossevm[address] [place], [place] [address]Dr. Tadeo Smyth CBC AUTO DIFFon 09-14-2022 BASO # 0.0 103/ul Normal 0.0-0.1 [facility] Comment on above: Performed By: #### C BC ####[facility] Vazxvyonwp[address] [place], [place] [address]Dr. Tadeo Smyth Basophils/100 WBC (Bld) 0.3 % Normal 0.2-2.0 [facility] Comment on above: Performed By: #### C BC ####[facility] Dtfgsiigav16[address] [place], [place] [address]Dr. Tadeo Smyth EO # 0.2 103/ul Normal 0.0-0.7 [facility] Comment on above: Performed By: #### C BC ####[facility] Cmenwgljyk[address] [place], [place] [address]Dr. Tadeo Smyth Eosinophils/100 WBC (Bld) 1.1 % Normal 0.9-7.0 [facility] Comment on above: Performed By: #### C BC ####[facility] Iemdezvezc4[address] [place], [place] [address]Dr. Tadeo Smyth Erythrocyte distribution width (RBC) [Ratio] 13.7 % Normal 11.0-15.0 [facility] Comment on above: Performed By: #### C BC ####[facility] [address]sphimepam[address] [place], [place] [address]Dr. Tadeo Smyth Hematocrit (Bld) [Volume fraction] 41.3 % Normal 36.0-48.0 [facility] Comment on above: Performed By: #### C BC ####[facility] Rdwpxkyfmw2387 [place] [address]Dr. Tadeo Smyth Hemoglobin (Bld) [Mass/Vol] 13.6 g/dL Normal 12.0-16.0 [facility] Comment on above: Performed By: #### C BC ####[facility] Poxnlbgmjk6984 [place] [address]Dr. Tadeo Smyth IG # 0.05 10e3/ul Critically high 0.00-0.03 [facility] Comment on above: Performed By: #### C BC ####[facility] Riobvjghny2832 [place] [address]Dr. Tadeo Smyth IG % 0.4 % Normal 0.0-0.5 [facility] Comment on above: Performed By: #### C BC ####[facility] Svdqvekkld4[address] [place] [address]Dr. Tadeo Smyth LYMPH # 2.2 103/ul Normal 1.2-3.8 [facility] Comment on above: Performed By: #### C BC ####[facility] Dlqhpcmgfo3944 [place] [address]DrNeo Smyth Lymphocytes/100 WBC (Bld) 16.3 % Critically low 20.5-60.0 [facility] Comment on above: Performed By: #### C BC ####[facility] Odokijqknr3154 [place] [address]DrNeo Smyth MANUAL DIFF REQ NO Normal [facility] Comment on above: Performed By: #### C BC ####[facility] Htsvkcbzjm[address] [place], [place] [address]DrNeo Smyth MCH (RBC) [Entitic mass] 28.9 pg Normal 26.7-34.0 [facility] Comment on above: Performed By: #### C BC ####[facility] Aooyuazamd14[address] [place], [place] [address]Dr. Tadeo Smyth MCHC (RBC) [Mass/Vol] 32.9 g/dL Normal 29.9-35.2 [facility] Comment on above: Performed By: #### C BC ####[facility] Mlruhrczsa60[address] [place] [id number]. Tadeo Smyth MCV (RBC) [Entitic vol] 87.9 fL Normal 81.0-99.0 [facility] Comment on above: Performed By: #### C BC ####[facility] Typkrghhpa[address] [place], [place] [phone] Frostnicole Haja MONO # 0.7 103/ul Normal 0.3-0.8 [facility] Comment on above: Performed By: #### C BC ####[facility] Womjsqdphn8[address] [place], [place] [address]Dr. Margotnicole Smyth Monocytes/100 WBC (Bld) 5.1 % Normal 1.7-12.0 [facility] Comment on above: Performed By: #### C BC ####[facility] Ejopsmgwmx14[address] [place], [place] [address]Dr. Margotnicole Haja NEUT # 10.3 103/ul Critically high 1.4-6.5 [facility] Comment on above: Performed By: #### C BC ####[facility] Qqmmurvpwp99[address] [place], [place] [phone]. Tadeo Haja Neutrophils/100 WBC (Bld) 76.8 % Critically high 43.0-75.0 [facility] Comment on above: Performed By: #### C BC ####[facility] Zytxqsvktv[address] [place], [place] [phone]. Tadeo Haja Platelet mean volume (Bld) [Entitic vol] 8.8 fL Critically low 9.5-13.5 [facility] Comment on above: Performed By: #### C BC ####[facility] Fdtbialabt[address] [place], [place] [id number] Frostnicole Haja PLT 438 103/ul Normal 150-450 [facility] Comment on above: Performed By: #### C BC ####[facility] Hcfbcmuqjx[address] [place], [place] [address]Dr. Tadeo Smyth RBC 4.70 106/ul Normal 4.20-5.40 [facility] Comment on above: Performed By: #### C BC ####[facility] Cskawuejat54[address] [place], [place] [address]Dr. Tadeo Smyth WBC 13.4 103/ul Critically high 4.0-11.0 [facility] Comment on above: Performed By: #### C BC ####[facility] Tikmsujlrn85[address] [place], [place] [address]Dr. Tadeo Haja ER URINE PROFILEon 3 Bilirubin Ql (U) Negative Normal NEGATIVE [facility] Comment on above: Performed By: #### KAROL MERCHANT ####[facility] Xkxbthrwcu[address] [place], [place] [address]Dr. Tadeo Smyth Clarity (U) CLEAR Normal CLEAR [facility] Comment on above: Performed By: #### KAROL MERCHANT ####[facility] Rewztoaqxf8824[address] [place], [place] [address]Dr. Tadeo Smyth Color (U) LT. YELLOW Normal YELLOW [facility] Comment on above: Performed By: #### KAROL MERCHANT ####[facility] Ltdgphbbgp528[address] [place], [place] [address]Dr. Tadeo CAMARGOD A micrscopic examina tion will be performed if indicated. Normal [facility] Comment on above: Performed By: #### KAROL MERCHANT ####[facility] Ghcakolrlo[address] [place], [place] [address]Dr. Tadeo Smyth Glucose Ql (U) Negative Normal NEGATIVE [facility] Comment on above: Performed By: #### SANDRO MERCHANTRO ####[facility] Vokdhtcxhf8[address] [place], [place] [address]Dr. Tadeo Smyth Hemoglobin Ql (U) TRACE-INTACT Abnormal NEGATIVE [facility] Comment on above: Performed By: #### SANDRO MERCHANTRO ####[facility] Ffdxdjzlvy7[address] [place], [place] [address]Dr. Tadeo Smyth Ketones Ql (U) Negative Normal NEGATIVE [facility] Comment on above: Performed By: #### SANDRO MERCHANTRO ####[facility] Lgjnusvhrf[address] [place], [place] [address]Dr. Tadeo Smyth LEUKOCYTES Negative Normal NEGATIVE [facility] Comment on above: Performed By: #### SANDRO MERCHANTRO ####[facility] Gexdsbbxev[address] [place] [address]Dr. Tadeo Smyth Nitrite Ql (U) Negative Normal NEGATIVE [facility] Comment on above: Performed By: #### SANDRO MERCHANTRO ####[facility] Lxyzflmyww9342 [place] [address]Dr. Tadeo Smyth pH (U) 6.5 [pH] Normal 5-9 [facility] Comment on above: Performed By: #### SANDRO MERCHANTRO ####[facility] Yfxcnjmnrb[address] [place], [place] [address]Dr. Tadeo Smyth SPEC GRAVITY 1.020 Normal 1.005-<=1.0 25 [facility] Comment on above: Performed By: #### SANDRO MERCHANTRO ####[facility] Askdhtiuwe6[address] [place], [place] [address]Dr. Tadeo Smyth UA PROTEIN Negative Normal NEGATIVE/ TRACE [facility] Comment on above: Performed By: #### SANDRO MERCHANTRO ####[facility] Gwiiiykfpv65[address] [place], [place] [address]Dr. Tadeo Smyth UR MICRO IND INDICATED Normal [facility] Comment on above: Performed By: #### SANDRO MERCHANTRO ####[facility] Ixhsqjhwxw[address] [place], [place] [address]Dr. Tadeo Smyth Urobilinogen Qn (U) 0.2 {Benito'U}/dL Normal 0.2 - 1. 0 [facility] Comment on above: Performed By: #### SANDRO MERCHANTRO ####[facility] Ocfwgqgvjx[address] [place], [place] [address]Dr. Tadeo Smyth LIPASEon 09-14-2022 Lipase [Catalytic activity/Vol] 117.0 U/L Normal 73.0-393.0 [facility] Comment on above: Performed By: #### H STROPN, CMP, LIPA ####[facility] Fvzqzbipwg[address] [place] [address]Dr. Tadeo Smyth PROF 14(COMP METB)on 023 Albumin [Mass/Vol] 3.5 g/dL Normal 3.4-5.0 [facility] Comment on above: Performed By: #### H STROPN, CMP, LIPA ####[facility] Ztrhycjuqe9361 [place] [address]Dr. Tadeo Smyth Albumin/Globulin [Mass ratio] 0.8 {ratio} Normal [facility] Comment on above: Performed By: #### H STROPN, CMP, LIPA ####[facility] Szahmufqpz88[address] [place] [address]Dr. Tadeo Smyth ALP [Catalytic activity/Vol] 180 U/L Critically high 46-116 [facility] Comment on above: Performed By: #### H STROPN, CMP, LIPA ####[facility] Afxqohjvwx6[address] [place] [address]Dr. Tadeo Smyth ALT [Catalytic activity/Vol] 25 U/L Normal 14-59 [facility] Comment on above: Performed By: #### H STROPN, CMP, LIPA ####[facility] Mfnusnpuqj036[address] [place] [address]Dr. Tadeo Smyth Anion gap [Moles/Vol] 14.4 mmol/L Normal [facility] Comment on above: Performed By: #### H STROPN, CMP, LIPA ####[facility] Xmfhdbfwxv5187 [place] [address]Dr. Tadeo Smyth AST [Catalytic activity/Vol] 14 U/L Critically low 15-37 [facility] Comment on above: Performed By: #### H STROPN, CMP, LIPA ####[facility] Hvedacrbtq3083 [place] [address]Dr. Tadeo Smyth Bilirubin [Mass/Vol] 0.2 mg/dL Normal 0.2-1.0 [facility] Comment on above: Performed By: #### H STROPN, CMP, LIPA ####[facility] Iixturudjv0539 [place] [address]Dr. Tadeo Smyth Calcium [Mass/Vol] 9.4 mg/dL Normal 8.5-10.1 [facility] Comment on above: Performed By: #### H STROPN, CMP, LIPA ####[facility] Zznumcdjbb6921 [place] [address]Dr. Tadeo Smyth Chloride [Moles/Vol] 107 mmol/L Normal 98-107 [facility] Comment on above: Performed By: #### H STROPN, CMP, LIPA ####[facility] Qeuebrwqgg4216 [place] [address]Dr. Tadeo Smyth CO2 [Moles/Vol] 23.9 mmol/L Normal 21.0-32.0 [facility] Comment on above: Performed By: #### H STROPN, CMP, LIPA ####[facility] Sjlbndbuco15[address] [place] [address]Dr. Tadeo Smyth Creatinine [Mass/Vol] 0.91 mg/dL Normal 0.55-1.02 [facility] Comment on above: Performed By: #### H STROPN, CMP, LIPA ####[facility] Fuqunmnlhh[address] [place], [place] [address]Dr. Tadeo Smyth EGFR-AF SRI LANKAN >60 Normal >=60 [facility] Comment on above: Performed By: #### H STROPN, CMP, LIPA ####[facility] Aoxzwjtscx2234 [place] [address]Dr. Tadeo Smyth EGFR-NON AF SRI LANKAN >60 Normal >=60 [facility] Comment on above: Performed By: #### H STROPN, CMP, LIPA ####[facility] Xrdcuwlhvm9278 [place] [address]Dr. Tadeo Smyth Globulin (S) [Mass/Vol] 4.2 g/dL Normal [facility] Comment on above: Performed By: #### H STROPN, CMP, LIPA ####[facility] Ycccoafwtr8500 [place] [address]Dr. Tadeo Smyth Glucose [Mass/Vol] 101 mg/dL Normal 74-106 [facility] Comment on above: Performed By: #### H STROPN, CMP, LIPA ####[facility] Hzchgwwrqt0710 [place] [address]Dr. Tadeo Smyth Potassium [Moles/Vol] 3.3 mmol/L Critically low 3.5-5.1 [facility] Comment on above: Performed By: #### H STROPN, CMP, LIPA ####[facility] Kfgkpqlcff7602 [place] [address]Dr. Tadeo Smyth Protein [Mass/Vol] 7.7 g/dL Normal 6.4-8.2 [facility] Comment on above: Performed By: #### H STROPN, CMP, LIPA ####[facility] Lntdteohdk1461 [place] [address]Dr. Tadeo Smyth Sodium [Moles/Vol] 142 mmol/L Normal 136-145 [facility] Comment on above: Performed By: #### H STROPN, CMP, LIPA ####[facility] Ildhfrsjak5021 [place] [address]Dr. Tadeo Smyth Urea nitrogen [Mass/Vol] 17.0 mg/dL Normal 7.0-18.0 [facility] Comment on above: Performed By: #### H STROPN, CMP, LIPA ####[facility] Rxmmjlkmfz1072 [place] [address]Dr. Tadeo Smyth Urea nitrogen/Creatinine [Mass ratio] 18.7 mg/mg Normal [facility] Comment on above: Performed By: #### H STROPN, CMP, LIPA ####[facility] Umkplcyijf2[address] [place] [address]Dr. Tadeo Smyth TROPONIN, HIGH SENSITIVITYon 09-14-2022 HSTROP 46.6 pg/mL Normal 4.0-51.3 [facility] Comment on above: Result Comment: CUT- OFF POINTS HAVE BEEN ESTABLISHED BASED ON THE FOURTH UNIVERSAL DEFINITIONS OF MYOCARDIALINFARCTION. THE UPPER REFERENCE LIMIT (URL) OF TROPONIN, DEFINED THE 99TH PERCENTILE OFcTnI DISTRIBUTION IN A REFERENCE POPULATION, HAS BEEN CONFIRMED THE DECISION THRESHOLDFOR MT DIAGNOSIS. Performed By: #### H STROPN, CMP, LIPA ####[facility] Chilfpljze[address] [place] [address]Dr. Tadeo Smyth URINE MICROSCOPIC ONLYon BACTERIA NONE SEEN Normal NONE SEEN [facility] Comment on above: Performed By: #### Matthew FRANCISCO UMICRO ####[facility] Iqnzmxunks6736 [place] [address]Dr. Tadeo Smyth Bacteria identified Cx Nom (U) NOT INDICATED Normal [facility] Comment on above: Performed By: #### Matthew FRANCISCO UMICRO ####[facility] Ifmsmocobc9541 [place] [address]Dr. Tadeo Smyth CAST NONE SEEN Normal NONE SEEN [facility] Comment on above: Performed By: #### Matthew FRANCISCO UMICRO ####[facility] Xneplqabyg7[address] [place], [place] [address]Dr. Tadeo Smyth Crystals LM Nom (Urine sed) NONE SEEN Normal NONE SEEN [facility] Comment on above: Performed By: #### Matthew FRANCISCO UMICRO ####[facility] Yzacikohrc[address] [place], [place] [address]Dr. Tadeo Smyth Epithelial cells LM Ql (Urine sed) FEW Abnormal NONE SEEN /RARE [facility] Comment on above: Performed By: #### Matthew FRANCISCO UMICRO ####[facility] Etbvhrwqsb87[address] [place], [place] [address]Dr. Tadeo Smyth MUCOUS MODERATE Abnormal NONE SEEN [facility] Comment on above: Performed By: #### Matthew FRANCISCO UMICRO ####[facility] Vhjqvstpnh[address] [place], [place] [address]Dr. Tadeo Smyth RBC 0-2 Normal 0-2 [facility] Comment on above: Performed By: #### Matthew FRANCISCO UMICRO ####[facility] Xxgrzymipb853[address] [place], [place] [address]Dr. Tadeo Smyth WBC NONE SEEN Normal NONE SEEN [facility] Comment on above: Performed By: #### Matthew FRANCISCO UMICRO ####[facility] Aaymqxzesc33[address] [place], [place] [address]Dr. Tadeo Smyth XR ABD FLAT UP_PA Kasey 09-14 XR ABD FLAT UP_PA CH Normal [facility] VC COMP CONSULTATIONon 09-06 VC COMP CONSULTATION Normal [facility] VC VENOUS REFLUX MACARIO LMTon 0 09-06-2022 VC VENOUS REFLUX MACARIO LMT Normal [facility] XR KUB 1 VIEWon 08-18-2022 XR KUB 1 VIEW Normal [facility] US RUBENS DOP LEG RTon 08-11-20 22 US RUBENS DOP LEG RT Normal [facility] AMYLASEon 08-08-2022 Amylase [Catalytic activity/Vol] 64 U/L Normal 25-115 [facility] Comment on above: Performed By: #### C MP, VIJI, LIPA, CMADM ####[facility] Tdnnzpejeo94[address] [place] [address]Dr. Tadeo Smyth CARDIAC NORA ADMITon 022 CK [Catalytic activity/Vol] 127 U/L Normal 26-192 [facility] Comment on above: Performed By: #### C MP, VIJI, LIPA, CMADM ####[facility] Nngbddkewl1185 [place] [address]Dr. Tadeo Smyth CK.MB [Mass/Vol] 1.71 ng/mL Normal <=3.60 [facility] Comment on above: Performed By: #### C MP, VIJI, LIPA, CMADM ####[facility] Kneeadxudz[address] [place] [address]Dr. Tadeo Smyth HSTROP 36.7 pg/mL Normal 4.0-51.3 [facility] Comment on above: Result Comment: CUT- OFF POINTS HAVE BEEN ESTABLISHED BASED ON THE FOURTH UNIVERSAL DEFINITIONS OF MYOCARDIALINFARCTION. THE UPPER REFERENCE LIMIT (URL) OF TROPONIN, DEFINED THE 99TH PERCENTILE OFcTnI DISTRIBUTION IN A REFERENCE POPULATION, HAS BEEN CONFIRMED THE DECISION THRESHOLDFOR MT DIAGNOSIS. Performed By: #### C MP, VIJI, LIPA, CMADM ####[facility] Fpidsawtdo2372 [place] [address]Dr. Tadeo Smyth AAKASH 23 ng/mL Normal 9-82 [facility] Comment on above: Performed By: #### C MP, VIJI, LIPA, CMADM ####[facility] Oejixurake16[address] [place] [address]Dr. Margotnicole Smyth CBC AUTO DIFFon 08-08-2022 BASO # 0.0 103/ul Normal 0.0-0.1 [facility] Comment on above: Performed By: #### C BC ####[facility] R[address]vaxwtvro[address] [place], [place] [address]Dr. Tadeo Smyth Basophils/100 WBC (Bld) 0.4 % Normal 0.2-2.0 [facility] Comment on above: Performed By: #### C BC ####[facility] Oseijrynff6[address] [place], [place] [address]Dr. Tadeo Smyth EO # 0.1 103/ul Normal 0.0-0.7 [facility] Comment on above: Performed By: #### C BC ####[facility] Duayzvmeco519[address] [place], [place] [address]Dr. Tadeo Smyth Eosinophils/100 WBC (Bld) 1.5 % Normal 0.9-7.0 [facility] Comment on above: Performed By: #### C BC ####[facility] Vtjcdgncle2[address] [place], [place] [address]Dr. Tadeo Smyth Erythrocyte distribution width (RBC) [Ratio] 13.5 % Normal 11.0-15.0 [facility] Comment on above: Performed By: #### C BC ####[facility] Zorfphjdot9317[address] [place], [place] [address]Dr. Tadeo Smyth Hematocrit (Bld) [Volume fraction] 37.0 % Normal 36.0-48.0 [facility] Comment on above: Performed By: #### C BC ####[facility] Qsjtynqfyx[address] [place], [place] [address]Dr. Tadeo Smyth Hemoglobin (Bld) [Mass/Vol] 12.0 g/dL Normal 12.0-16.0 [facility] Comment on above: Performed By: #### C BC ####[facility] Gsrybvwtea56[address] [place], [place] [address]Dr. Tadeo Smyth IG # 0.02 10e3/ul Normal 0.00-0.03 [facility] Comment on above: Performed By: #### C BC ####[facility] Jxxnvgjqcf4276 [place] [address]DrNeo Smyth IG % 0.3 % Normal 0.0-0.5 [facility] Comment on above: Performed By: #### C BC ####[facility] Kqaphjzbcj[address] [place], [place] [address]DrNeo Tadeo Smyth LYMPH # 2.0 103/ul Normal 1.2-3.8 [facility] Comment on above: Performed By: #### C BC ####[facility] Oyrkxgxfjg33[address] [place], [place] [address]DrNeo Tadeo Smyth Lymphocytes/100 WBC (Bld) 27.9 % Normal 20.5-60.0 [facility] Comment on above: Performed By: #### C BC ####[facility] Wajbfivxoy88[address] [place], [place] [address]DrNeo Tadeo Smyth MANUAL DIFF REQ NO Normal [facility] Comment on above: Performed By: #### C BC ####[facility] Oyewrgfubq13[address] [place], [place] [address]DrNeo Tadeo Smyth MCH (RBC) [Entitic mass] 28.9 pg Normal 26.7-34.0 [facility] Comment on above: Performed By: #### C BC ####[facility] Icxciilnpv9[address] [place], [place] [address]DrNeo Tadeo Smyth MCHC (RBC) [Mass/Vol] 32.4 g/dL Normal 29.9-35.2 [facility] Comment on above: Performed By: #### C BC ####[facility] Puvcxtqxau[address] [place], [place] [address]DrNeo Tadeo Smyth MCV (RBC) [Entitic vol] 89.2 fL Normal 81.0-99.0 [facility] Comment on above: Performed By: #### C BC ####[facility] Efmffamzwe[address] [place], [place] [address]DrNeo Tadeo Haja MONO # 0.5 103/ul Normal 0.3-0.8 [facility] Comment on above: Performed By: #### C BC ####[facility] Wvbvhtzewf54[address] [place] [id number]. Tadeo Smyth Monocytes/100 WBC (Bld) 6.7 % Normal 1.7-12.0 [facility] Comment on above: Performed By: #### C BC ####[facility] Uwbokyfhtv45[address] [place] [address]Dr. Tadeo Smyth NEUT # 4.5 103/ul Normal 1.4-6.5 [facility] Comment on above: Performed By: #### C BC ####[facility] Wqvqmttghl3515 [place] [address]Dr. Tadeo Smyth Neutrophils/100 WBC (Bld) 63.2 % Normal 43.0-75.0 [facility] Comment on above: Performed By: #### C BC ####[facility] Busnhvaesj4992 [place] [address]Dr. Tadeo Smyth Platelet mean volume (Bld) [Entitic vol] 9.0 fL Critically low 9.5-13.5 [facility] Comment on above: Performed By: #### C BC ####[facility] Fbaltltibz23[address] [place] [address]Dr. Tadeo Smyth PLT 382 103/ul Normal 150-450 [facility] Comment on above: Performed By: #### C BC ####[facility] Fqmervdfxw4357 [place] [address]Dr. Tadeo Smyth RBC 4.15 106/ul Critically low 4.20-5.40 [facility] Comment on above: Performed By: #### C BC ####[facility] Devrgkowqn9161 [place] [address]Dr. Tadeo mSyth WBC 7.1 103/ul Normal 4.0-11.0 [facility] Comment on above: Performed By: #### C BC ####[facility] Cfcwomcgdy6[address] [place] [id number]. Tadeo Smyth CT ABD/PELV W CONon 08-08-[address] ABD/PELV W CON Normal [facility] ER URINE PROFILEon 2 Bilirubin Ql (U) Negative Normal NEGATIVE [facility] Comment on above: Performed By: #### SANDRO MERCHANTRO ####[facility] Xspwmcoxwu[address] [place], [place] [address]Dr. Margotnicole Smyth Clarity (U) CLEAR Normal CLEAR [facility] Comment on above: Performed By: #### SANDRO MERCHANTRO ####[facility] Yymdljyxaz[address] [place], [place] [address]Dr. Tadeo Smyth Color (U) YELLOW Normal YELLOW [facility] Comment on above: Performed By: #### SANDRO MERCHANTRO ####[facility] Mqqdhgkxug[address] [place], [place] [address]Dr. Tadeo Smyth ERUAHD A micrscopic examina tion will be performed if indicated. Normal [facility] Comment on above: Performed By: #### SANDRO MERCHANTRO ####[facility] Qjanzkfgjx[address] [place], [place] [address]Dr. Tadeo Smyth Glucose Ql (U) Negative Normal NEGATIVE [facility] Comment on above: Performed By: #### SANDRO MERCHANTRO ####[facility] Rbbqonhdxl9[address] [place], [place] [address]Dr. Tadeo Smyth Hemoglobin Ql (U) TRACE-LYSED Abnormal NEGATIVE [facility] Comment on above: Performed By: #### SANDRO MERCHANTRO ####[facility] Hcudaebjet45[address] [place], [place] [address]Dr. Tadeo Smyth Ketones Ql (U) TRACE Abnormal NEGATIVE [facility] Comment on above: Performed By: #### SANDRO MERCHANTRO ####[facility] Nhvlzqyuzs[address] [place], [place] [address]Dr. Tadeo Smyth LEUKOCYTES Negative Normal NEGATIVE [facility] Comment on above: Performed By: #### SANDRO MERCHANTRO ####[facility] Xwsrtddtqt64[address] [place], [place] [address]Dr. Tadeo Smyth Nitrite Ql (U) Negative Normal NEGATIVE [facility] Comment on above: Performed By: #### KAROL MERCHANT ####[facility] Twmvxuaxpg[address] [place] [address]Dr. Tadeo Smyth pH (U) 6.0 [pH] Normal 5-9 [facility] Comment on above: Performed By: #### KAROL MERCHANT ####[facility] Lqrnistkjp48[address] [place] [address]Dr. Tadeo Smyth SPEC GRAVITY >=1.030 Abnormal 1.005-<=1.0 25 [facility] Comment on above: Performed By: #### SANDRO MERCHANTRO ####[facility] Tulzselpwa[address] [place], [place] [address]Dr. Tadeo Smyth UA PROTEIN TRACE Normal NEGATIVE/ TRACE [facility] Comment on above: Performed By: #### KAROL MERCHANT ####[facility] Vonguqtduy4024[address] [place], [place] [address]Dr. Tadeo Smyth UR MICRO IND INDICATED Normal [facility] Comment on above: Performed By: #### KAROL MERCHANT ####[facility] Cgvvahuvmk6[address] [place], [place] [address]Dr. Tadeo Smyth Urobilinogen Qn (U) 0.2 {Benito'U}/dL Normal 0.2 - 1. 0 [facility] Comment on above: Performed By: #### SANDRO MERCHANTRO ####[facility] Urrtmmqhto38[address] [place], [place] [address]Dr. Tadeo Smyth LACTATE/LACTIC ACIDon 2021 Lactate [Moles/Vol] 1.3 mmol/L Normal 0.4-1.9 [facility] Comment on above: Performed By: #### L ACT ####[facility] Fuclnkepbw[address] [place], [place] [address]Dr. Tadeo Smyth LIPASEon 08-08-2022 Lipase [Catalytic activity/Vol] 120.0 U/L Normal 73.0-393.0 [facility] Comment on above: Performed By: #### C MP, VIJI, LIPA, CMADM ####[facility] Knrcgvoekq0[address] [place], [place] [address]Dr. Tadeo Smyth PROF 14(COMP METB)on 022 Albumin [Mass/Vol] 3.8 g/dL Normal 3.4-5.0 [facility] Comment on above: Performed By: #### C MP, VIJI, LIPA, CMADM ####[facility] Tjoeczhrrg[address] [place] [address]Dr. Tadeo Smyth Albumin/Globulin [Mass ratio] 1.1 {ratio} Normal [facility] Comment on above: Performed By: #### C MP, VIJI, LIPA, CMADM ####[facility] Wkfrrgwxms30[address] [place] [address]Dr. Tadeo Smyth ALP [Catalytic activity/Vol] 145 U/L Critically high 46-116 [facility] Comment on above: Performed By: #### C MP, VIJI, LIPA, CMADM ####[facility] Npuozzjwxr[address]367 [place] [address]Dr. Tadeo Smyth ALT [Catalytic activity/Vol] 30 U/L Normal 14-59 [facility] Comment on above: Performed By: #### C MP, VIJI, LIPA, CMADM ####[facility] Xbgjpktjoo62[address] [place] [address]Dr. Tadeo Smyth Anion gap [Moles/Vol] 11.5 mmol/L Normal [facility] Comment on above: Performed By: #### C MP, VIJI, LIPA, CMADM ####[facility] Swcrcevlhf29[address] [place] [address]Dr. Tadeo Smyth AST [Catalytic activity/Vol] 17 U/L Normal 15-37 [facility] Comment on above: Performed By: #### C MP, VIJI, LIPA, CMADM ####[facility] Hhkbxuwjxd1576 [place] [address]Dr. Tadeo Smyth Bilirubin [Mass/Vol] 0.1 mg/dL Critically low 0.2-1.0 [facility] Comment on above: Performed By: #### C MP, VIJI, LIPA, CMADM ####[facility] Myinrlhobu[address] [place] [address]Dr. Tadeo Smyth Calcium [Mass/Vol] 8.9 mg/dL Normal 8.5-10.1 [facility] Comment on above: Performed By: #### C MP, VIJI, LIPA, CMADM ####[facility] Cbusmqbgoi3[address] [place] [address]Dr. Tadeo Smyth Chloride [Moles/Vol] 104 mmol/L Normal 98-107 [facility] Comment on above: Performed By: #### C MP, VIJI, LIPA, CMADM ####[facility] Skidxmwkjo6[address] [place] [address]Dr. Tadeo Smyth CO2 [Moles/Vol] 27.2 mmol/L Normal 21.0-32.0 [facility] Comment on above: Performed By: #### C MP, VIJI, LIPA, CMADM ####[facility] Dcxisjzpqh5[address] [place] [address]Dr. Tadeo Smyth Creatinine [Mass/Vol] 0.90 mg/dL Normal 0.55-1.02 [facility] Comment on above: Performed By: #### C MP, VIJI, LIPA, CMADM ####[facility] Zrebwfzsax6[address] [place], [place] [address]Dr. Tadeo Smyth EGFR-AF SRI LANKAN >60 Normal >=60 [facility] Comment on above: Performed By: #### C MP, VIJI, LIPA, CMADM ####[facility] Rcexdxjitq15[address] [place] [address]Dr. Tadeo Smyth EGFR-NON AF SRI LANKAN >60 Normal >=60 [facility] Comment on above: Performed By: #### C MP, VIJI, LIPA, CMADM ####[facility] Efuobrhmbd4562 [place] [address]Dr. Tadeo Smyth Globulin (S) [Mass/Vol] 3.5 g/dL Normal [facility] Comment on above: Performed By: #### C MP, VIJI, LIPA, CMADM ####[facility] Szsbojyecl[address] [place] [address]Dr. Tadeo Smyth Glucose [Mass/Vol] 98 mg/dL Normal 74-106 [facility] Comment on above: Performed By: #### C MP, VIJI, LIPA, CMADM ####[facility] Cprictziim4444 [place] [address]Dr. Tadeo Smyth Potassium [Moles/Vol] 3.7 mmol/L Normal 3.5-5.1 [facility] Comment on above: Performed By: #### C MP, VIJI, LIPA, CMADM ####[facility] Vveqiccwbp7761 [place] [address]Dr. Tadeo Smyth Protein [Mass/Vol] 7.3 g/dL Normal 6.4-8.2 [facility] Comment on above: Performed By: #### C MP, VIJI, LIPA, CMADM ####[facility] Xlyksxbbuq33[address] [place] [address]Dr. Tadeo Smyth Sodium [Moles/Vol] 139 mmol/L Normal 136-145 [facility] Comment on above: Performed By: #### C MP, VIJI, LIPA, CMADM ####[facility] Uapvijsmzu5214 [place] [address]Dr. Tadeo Smyth Urea nitrogen [Mass/Vol] 25.0 mg/dL Critically high 7.0-18.0 [facility] Comment on above: Performed By: #### C MP, VIJI, LIPA, CMADM ####[facility] Dqhbpscfdg3352 [place] [address]Dr. Tadeo Smyth Urea nitrogen/Creatinine [Mass ratio] 27.8 mg/mg Normal [facility] Comment on above: Performed By: #### C MP, VIJI, LIPA, CMADM ####[facility] Ujiknutqlg[address] [place] [address]Dr. Tadeo Smyth URINE MICROSCOPIC ONLYon BACTERIA NONE SEEN Normal NONE SEEN [facility] Comment on above: Performed By: #### KAROL MERCHANT ####[facility] Hypfvjgwmm89[address] [place] [address]Dr. Tadeo Smyth Bacteria identified Cx Nom (U) NOT INDICATED Normal [facility] Comment on above: Performed By: #### KAROL MERCHANT ####[facility] Hvovegxlxe8058 [place] [address]Dr. Margotnicole Smyth CAST NONE SEEN Normal NONE SEEN [facility] Comment on above: Performed By: #### KAROL MERCHANT ####[facility] Zyxopebuxs3305 [place] [address]Dr. Tadeo Smyth Crystals LM Nom (Urine sed) NONE SEEN Normal NONE SEEN [facility] Comment on above: Performed By: #### SANDRO MERCHANTRO ####[facility] Qwcntwxqut0094 [place] [address]Dr. Tadeo Smyth Epithelial cells LM Ql (Urine sed) FEW Abnormal NONE SEEN /RARE [facility] Comment on above: Performed By: #### KAROL MERCHANT ####[facility] Pepvdteiat3300 [place] [address]Dr. Margotnicole Smyth MUCOUS NONE SEEN Normal NONE SEEN [facility] Comment on above: Performed By: #### KAROL MERCHANT ####[facility] Qpbqupihfb[address] [place], [place] [address]Dr. Tadeo Smyth RBC 2-5 Abnormal 0-2 [facility] Comment on above: Performed By: #### KAROL MERCHANT ####[facility] Mdpygmwkog[address] [place], [place] [address]Dr. Tadeo Smyth WBC NONE SEEN Normal NONE SEEN [facility] Comment on above: Performed By: #### KAROL MERCHANT ####[facility] Iggavvtaqj3[address] [place], [place] [address]Dr. Tadeo Smyth AMYLASEon 07-21-2022 Amylase [Catalytic activity/Vol] 49 U/L Normal 25-115 [facility] Comment on above: Performed By: #### L IPA, VIJI, CMP ####[facility] Wjqcjbmqgi15[address] [place], [place] [address]Dr. Tadeo Smyth CBC AUTO DIFFon 07-21-2022 BASO # 0.0 103/ul Normal 0.0-0.1 [facility] Comment on above: Performed By: #### C BC ####[facility] Bhbjigsjbh36[address] [place], [place] [address]Dr. Tadeo Smyth Basophils/100 WBC (Bld) 0.6 % Normal 0.2-2.0 [facility] Comment on above: Performed By: #### C BC ####[facility] Eqorlcefyz35[address] [place] [address]Dr. Tadeo Smyth EO # 0.2 103/ul Normal 0.0-0.7 [facility] Comment on above: Performed By: #### C BC ####[facility] Hsxcmojlwt9714 [place] [address]Dr. Tadeo Smyth Eosinophils/100 WBC (Bld) 3.1 % Normal 0.9-7.0 [facility] Comment on above: Performed By: #### C BC ####[facility] Kqlgpjtjwg9[address] [place] [address]Dr. Tadeo Smyth Erythrocyte distribution width (RBC) [Ratio] 13.2 % Normal 11.0-15.0 [facility] Comment on above: Performed By: #### C BC ####[facility] Lrjyxpkjaf6126 [place] [address]Dr. Tadeo Smyth Hematocrit (Bld) [Volume fraction] 35.7 % Critically low 36.0-48.0 [facility] Comment on above: Performed By: #### C BC ####[facility] Nfcqknfvng3733 [place] [address]Dr. Tadeo Smyth Hemoglobin (Bld) [Mass/Vol] 11.6 g/dL Critically low 12.0-16.0 [facility] Comment on above: Performed By: #### C BC ####[facility] Fhiaksydrn[address] [place] [address]Dr. Tadeo Smyth IG # 0.01 10e3/ul Normal 0.00-0.03 [facility] Comment on above: Performed By: #### C BC ####[facility] Evoxjsnhde7524 [place] [address]Dr. Tadeo Smyth IG % 0.2 % Normal 0.0-0.5 [facility] Comment on above: Performed By: #### C BC ####[facility] Mbsmrqsrbp73[address] [place] [address]Dr. Tadeo Haja LYMPH # 1.9 103/ul Normal 1.2-3.8 [facility] Comment on above: Performed By: #### C BC ####[facility] Bttgwduyqy30[address] [place] [address]Dr. Margotnicole Smyth Lymphocytes/100 WBC (Bld) 34.8 % Normal 20.5-60.0 [facility] Comment on above: Performed By: #### C BC ####[facility] Oqphytiswj8383 [place] [address]Dr. Tadeo Smyth MANUAL DIFF REQ NO Normal [facility] Comment on above: Performed By: #### C BC ####[facility] Mhjxfwzhwo8403 [place] [address]Dr. Tadeo Haja MCH (RBC) [Entitic mass] 29.1 pg Normal 26.7-34.0 [facility] Comment on above: Performed By: #### C BC ####[facility] Cdorjkigjl[address] [place], [place] [address]Dr. Tadeo Haja MCHC (RBC) [Mass/Vol] 32.5 g/dL Normal 29.9-35.2 [facility] Comment on above: Performed By: #### C BC ####[facility] Ujqlfabqcd[address] [place] [address]Dr. Margotnicole Smyth MCV (RBC) [Entitic vol] 89.7 fL Normal 81.0-99.0 [facility] Comment on above: Performed By: #### C BC ####[facility] Dwfuexjjhi6836 [place] [address]Dr. Tadeo Smyth MONO # 0.3 103/ul Normal 0.3-0.8 [facility] Comment on above: Performed By: #### C BC ####[facility] K[address]mlqgverp[address] [place], [place] [address]Dr. Tadeo Smyth Monocytes/100 WBC (Bld) 6.1 % Normal 1.7-12.0 [facility] Comment on above: Performed By: #### C BC ####[facility] Vqyjgihemo97[address] [place] [address]Dr. Tadeo Smyth NEUT # 3.0 103/ul Normal 1.4-6.5 [facility] Comment on above: Performed By: #### C BC ####[facility] Dzkohxwoya4160 [place] [address]Dr. Tadeo Smyth Neutrophils/100 WBC (Bld) 55.2 % Normal 43.0-75.0 [facility] Comment on above: Performed By: #### C BC ####[facility] Zruvbsffdt9277 [place] [address]Dr. Tadeo Smyth Platelet mean volume (Bld) [Entitic vol] 9.0 fL Critically low 9.5-13.5 [facility] Comment on above: Performed By: #### C BC ####[facility] Xbktbpdptw4703 [place] [address]Dr. Tadeo Smyth PLT 358 103/ul Normal 150-450 [facility] Comment on above: Performed By: #### C BC ####[facility] Uebrbthsfc6804 [place] [address]Dr. Tadeo Smyth RBC 3.98 106/ul Critically low 4.20-5.40 [facility] Comment on above: Performed By: #### C BC ####[facility] Wjkvvjgtbh0638 [place] [address]Dr. Tadeo Smyth WBC 5.4 103/ul Normal 4.0-11.0 [facility] Comment on above: Performed By: #### C BC ####[facility] Nbycdokwbt1894 [place] [address]Dr. Tadeo Smyth LIPASEon 07-21-2022 Lipase [Catalytic activity/Vol] 54.0 U/L Critically low 73.0-393.0 [facility] Comment on above: Performed By: #### L VIJI HALL, CMP ####[facility] Ejbpnjbcaa4239 [place] [address]Dr. Margotnicole Smyth PROF 14(COMP METB)on Albumin [Mass/Vol] 3.5 g/dL Normal 3.4-5.0 [facility] Comment on above: Performed By: #### L IPA VIJI, CMP ####[facility] Rkcbhwvhvm9519 [place] [address]Dr. Tadeo Smyth Albumin/Globulin [Mass ratio] 0.9 {ratio} Normal [facility] Comment on above: Performed By: #### L IPA VIJI, CMP ####[facility] Eufoagasrn4138 [place] [address]Dr. Tadeo Smyth ALP [Catalytic activity/Vol] 127 U/L Critically high 46-116 [facility] Comment on above: Performed By: #### L IPA VIJI, CMP ####[facility] Yakzoivdiz3473 [place] [address]Dr. Tadeo Smyth ALT [Catalytic activity/Vol] 16 U/L Normal 14-59 [facility] Comment on above: Performed By: #### L ISABEL VIJI, CMP ####[facility] Xmrvbslsto4767 [place] [address]Dr. Tadeo Smyth Anion gap [Moles/Vol] 10.6 mmol/L Normal [facility] Comment on above: Performed By: #### L ISABEL VIJI, CMP ####[facility] Wqhvrisabh[address] [place], [place] [address]Dr. Tadeo Smyth AST [Catalytic activity/Vol] 16 U/L Normal 15-37 [facility] Comment on above: Performed By: #### L ISABEL VIJI, CMP ####[facility] Fuzkyfxrfh6143 [place] [address]Dr. Tadeo Smyth Bilirubin [Mass/Vol] 0.3 mg/dL Normal 0.2-1.0 [facility] Comment on above: Performed By: #### L ISABEL VIJI, CMP ####[facility] Uoptirnxnx0827 [place] [address]Dr. Tadeo Smyth Calcium [Mass/Vol] 9.1 mg/dL Normal 8.5-10.1 [facility] Comment on above: Performed By: #### L IPA VIJI, CMP ####[facility] Yegndrkdon5212 [place] [address]Dr. Tadeo Smyth Chloride [Moles/Vol] 104 mmol/L Normal 98-107 [facility] Comment on above: Performed By: #### L VIJI HALL, CMP ####[facility] Fqbsebeqfq0461 [place] [address]Dr. Tadeo Smyth CO2 [Moles/Vol] 28.0 mmol/L Normal 21.0-32.0 [facility] Comment on above: Performed By: #### L VIJI HALL, CMP ####[facility] Fatvlkyyrb9190 [place] [address]Dr. Tadeo Smyth Creatinine [Mass/Vol] 0.96 mg/dL Normal 0.55-1.02 [facility] Comment on above: Performed By: #### L VIJI HALL, CMP ####[facility] Tstsigwqyw[address] [place], [place] [address]Dr. Tadeo Smyth EGFR-AF SRI LANKAN >60 Normal >=60 [facility] Comment on above: Performed By: #### L VIJI HALL, CMP ####[facility] Biujygilrk75[address] [place], [place] [address]Dr. Tadeo Smyth EGFR-NON AF SRI LANKAN >60 Normal >=60 [facility] Comment on above: Performed By: #### L VIJI HALL, CMP ####[facility] Uvrtjrkbyq5725[address] [place], [place] [address]Dr. Tadeo Smyth Globulin (S) [Mass/Vol] 3.8 g/dL Normal [facility] Comment on above: Performed By: #### L VIJI HALL, CMP ####[facility] Xugochuakw1303[address] [place], [place] [address]Dr. Tadeo Smyth Glucose [Mass/Vol] 93 mg/dL Normal 74-106 [facility] Comment on above: Performed By: #### L VIJI HALL, CMP ####[facility] Lvdnwoziwh1589[address] [place], [place] [address]Dr. Tadeo Smyth Potassium [Moles/Vol] 3.6 mmol/L Normal 3.5-5.1 [facility] Comment on above: Performed By: #### L VIJI HALL, CMP ####[facility] Jizzaoooli[address] [place], [place] [address]Dr. Tadeo Smyth Protein [Mass/Vol] 7.3 g/dL Normal 6.4-8.2 [facility] Comment on above: Performed By: #### L VIJI HALL, CMP ####[facility] Lqyujmqdsb3436 [place] [address]Dr. Tadeo Smyth Sodium [Moles/Vol] 139 mmol/L Normal 136-145 [facility] Comment on above: Performed By: #### L VIJI HALL, CMP ####[facility] Sxhexrkqqk4194[address] [place], [place] [address]Dr. Tadeo Haja Urea nitrogen [Mass/Vol] 16.0 mg/dL Normal 7.0-18.0 [facility] Comment on above: Performed By: #### L VIJI HALL, CMP ####[facility] Jeyhsmcyxw60[address] [place], [place] [address]Dr. Margotnicole Smyth Urea nitrogen/Creatinine [Mass ratio] 16.7 mg/mg Normal [facility] Comment on above: Performed By: #### L VIJI HALL, CMP ####[facility] Ijdbcccjyq1922[address] [place], [place] [address]Dr. Tadeo Smyth XR ABD FLAT UP_PA Kasey 07-21 XR ABD FLAT UP_PA CH Normal [facility] CULTURE URINEon 07-10-2022 CULTURE URINE Normal [facility] Comment on above: Performed By: #### U RCX ####[facility] Lamamnvuda29[address] [place], [place] [address]Dr. Tadeo Haja INSULINon 07-09-2022 Insulin 15.9 uIU/mL Normal 2.6-24.9 [facility] Comment on above: Performed By: #### I NSULIN ####[facility] Dqrarlxypt431[address] [place], [place] [address]Dr. Tadeo Haja CBC AUTO DIFFon 07-08-2022 BASO # 0.0 103/ul Normal 0.0-0.1 [facility] Comment on above: Performed By: #### C BC ####[facility] Cruxcpubcp8[address] [place], [place] [address]Dr. Margotnicole Smyth Basophils/100 WBC (Bld) 0.6 % Normal 0.2-2.0 [facility] Comment on above: Performed By: #### C BC ####[facility] Ftjiluifvb6983[address] [place], [place] [address]Dr. Tadeo Smyth EO # 0.2 103/ul Normal 0.0-0.7 [facility] Comment on above: Performed By: #### C BC ####[facility] Pnwwcyobot0744[address] [place], [place] [address]Dr. Tadeo Smyth Eosinophils/100 WBC (Bld) 3.4 % Normal 0.9-7.0 [facility] Comment on above: Performed By: #### C BC ####[facility] Mriufntouy6096[address] [place], [place] [address]Dr. Tadeo Smyth Erythrocyte distribution width (RBC) [Ratio] 13.1 % Normal 11.0-15.0 [facility] Comment on above: Performed By: #### C BC ####[facility] Kxbqkplgaz7714[address] [place], [place] [address]Dr. Tadeo Smyth Hematocrit (Bld) [Volume fraction] 42.4 % Normal 36.0-48.0 [facility] Comment on above: Performed By: #### C BC ####[facility] Vcwlvrkbbs6007[address] [place], [place] [address]Dr. Margotnicole Smyth Hemoglobin (Bld) [Mass/Vol] 13.7 g/dL Normal 12.0-16.0 [facility] Comment on above: Performed By: #### C BC ####[facility] Bclefpuhjq9729[address] [place], [place] [address]Dr. Tadeo Smyth IG # 0.01 10e3/ul Normal 0.00-0.03 [facility] Comment on above: Performed By: #### C BC ####[facility] Bgzuatkzwx5784[address] [place], [place] [address]Dr. Tadeo Smyth IG % 0.2 % Normal 0.0-0.5 [facility] Comment on above: Performed By: #### C BC ####[facility] Nmzhusfbrs5[address] [place], [place] [address]Dr. Tadeo Smyth LYMPH # 2.1 103/ul Normal 1.2-3.8 [facility] Comment on above: Performed By: #### C BC ####[facility] Bmiyshcvsc6063 [place] [address]Dr. Tadeo Smyth Lymphocytes/100 WBC (Bld) 41.2 % Normal 20.5-60.0 [facility] Comment on above: Performed By: #### C BC ####[facility] Qkmsssuawf2907 [place] [address]Dr. Tadeo Smyth MANUAL DIFF REQ NO Normal [facility] Comment on above: Performed By: #### C BC ####[facility] Sjslbhsscb3178 [place] [address]Dr. Tadeo Smyth MCH (RBC) [Entitic mass] 28.8 pg Normal 26.7-34.0 [facility] Comment on above: Performed By: #### C BC ####[facility] Gbhocidsms9202[address] [place], [place] [address]Dr. Tadeo Smyth MCHC (RBC) [Mass/Vol] 32.3 g/dL Normal 29.9-35.2 [facility] Comment on above: Performed By: #### C BC ####[facility] Gmqntrksev6[address] [place], [place] [address]DrNeo Symth MCV (RBC) [Entitic vol] 89.3 fL Normal 81.0-99.0 [facility] Comment on above: Performed By: #### C BC ####[facility] Exmqrgnvyw66[address] [place], [place] [address]Dr. Tadeo Smyth MONO # 0.4 103/ul Normal 0.3-0.8 [facility] Comment on above: Performed By: #### C BC ####[facility] Tpmowkiiqi6922[address] [place], [place] [address]Dr. Tadeo Smyth Monocytes/100 WBC (Bld) 8.1 % Normal 1.7-12.0 [facility] Comment on above: Performed By: #### C BC ####[facility] Ikymqeiugq0123[address] [place], [place] [address]DrNeo Smyth NEUT # 2.4 103/ul Normal 1.4-6.5 [facility] Comment on above: Performed By: #### C BC ####[facility] Ktheudlujo7001 [place] [address]Dr. Tadeo Smyth Neutrophils/100 WBC (Bld) 46.5 % Normal 43.0-75.0 [facility] Comment on above: Performed By: #### C BC ####[facility] Gkavparupn3591 [place] [id number]. Tadeo Smyth Platelet mean volume (Bld) [Entitic vol] 9.3 fL Critically low 9.5-13.5 [facility] Comment on above: Performed By: #### C BC ####[facility] Qvnxqmjwcz1830 [place] [address]Dr. Tadeo Smyth PLT 443 103/ul Normal 150-450 [facility] Comment on above: Performed By: #### C BC ####[facility] Juchmmyhsm9997 [place] [address]Dr. Tadeo Smyth RBC 4.75 106/ul Normal 4.20-5.40 [facility] Comment on above: Performed By: #### C BC ####[facility] Rmgbmrddte[address] [place], [place] [id number]. Tadeo Smyth WBC 5.1 103/ul Normal 4.0-11.0 [facility] Comment on above: Performed By: #### C BC ####[facility] Jlzpuazmqs5491 [place] [id number]. Tadeo Smyth FREE THYROXINE INDEX T7on FTI 2.91 Normal 1.30-4.50 [facility] Comment on above: Performed By: #### T 7, LIPID, TSH, CMP ####[facility] Khcandvfrp2794 [place] [id number]. Tadeo Smyth T3U 31.0 % Normal 30.0-39.0 [facility] Comment on above: Performed By: #### T 7, LIPID, TSH, CMP ####[facility] Qvojlfxfli3581 [place] [id number]. Tadeo Smyth T4 [Mass/Vol] 9.40 ug/dL Normal 4.80-13.90 [facility] Comment on above: Performed By: #### T 7, LIPID, TSH, CMP ####[facility] Xxxebwxxzs4012 [place] [address]Dr. Tadeo Smyth GLYCOHEMOGLOBIN A1Con 2021 ADA RECOMMENDATION SEE BELOW Normal [facility] Comment on above: Result Comment: ADA RECOMMENDED LIMIT 4.0 - 6.0 ADA THERAPEUTIC TARGET < 7.0 ACTION SUGGESTED > 7.0 Performed By: #### A 1C ####[facility] Sflfidikee[address] [place], [place] [address]Dr. Tadeo Smyth Glucose [Mass/Vol] 120 mg/dL Normal [facility] Comment on above: Performed By: #### A 1C ####[facility] Cmayadrboh9[address] [place], [place] [address]Dr. Tadeo Smyth HbA1c (Bld) [Mass fraction] 5.8 % Normal 4.5-6.2 [facility] Comment on above: Performed By: #### A 1C ####[facility] Gaavdgldtc[address] [place], [place] [address]Dr. Tadeo Smyth IRONon 07-08-2022 Iron [Mass/Vol] 59.0 ug/dL Normal 50.0-170.0 [facility] Comment on above: Performed By: #### I KEEGAN ####[facility] Hsqyowwefo[address] [place], [place] [address]Dr. Tadeo Smyth LIPID PROFILEon 07-08-2022 CHOL-HDL RATIO NORM SEE BELOW Normal [facility] Comment on above: Result Comment: 3.3 - 4.4 LOW RISK 4.4 - 7.1 AVERAGE RISK 7.1 - 11.0 MODERATE RISK >11.0 HIGH RISK Performed By: #### T 7, LIPID, TSH, CMP ####[facility] Doeabontzb[address] [place], [place] [address]Dr. Tadeo Smyth Cholesterol [Mass/Vol] 227 mg/dL Critically high <=200 [facility] Comment on above: Performed By: #### T 7, LIPID, TSH, CMP ####[facility] Ylox[address] [place], [place] [address]Dr. Tadeo Smyth Cholesterol in HDL [Mass/Vol] 67 mg/dL Critically high 40-60 [facility] Comment on above: Performed By: #### T 7, LIPID, TSH, CMP ####[facility] [address] [place] [id number]. Tadeo Smyth Cholesterol in LDL [Mass/Vol] 139.0 mg/dL Normal [facility] Comment on above: Performed By: #### T 7, LIPID, TSH, CMP ####[facility] [address]xyrt[address] [place] [id number]. Tadeo Smyth Cholesterol.total/Cho lesterol in HDL [Mass ratio] 3.4 {ratio} Normal [facility] Comment on above: Performed By: #### T 7, LIPID, TSH, CMP ####[facility] [address] [place] [address]Dr. Tadeo Smyth HDL NORMAL > or = 60 mg/dl - LO W CARDIOVASCULAR RISK <40 mg/dl - HIGH CARDIOVASCULAR RISK Normal [facility] Comment on above: Performed By: #### T 7, LIPID, TSH, CMP ####[facility] [address]yl[address] [place] [id number]. Tadeo Smyth LDL CALC NORMAL SEE BELOW Normal [facility] Comment on above: Result Comment: <100 mg/dl OPTIMAL 100 - 129 mg/dl NEAR OR ABOVE OPTIMAL 130 - 159 mg/dl BORDERLINE HIGH 160 - 189 mg/dl HIGH >190 mg/dl VERY HIGH Performed By: #### T 7, LIPID, TSH, CMP ####[facility] [address]fffx[address]fx[address] [place] [id number]. Tadeo Smyth Triglyceride [Mass/Vol] 105 mg/dL Normal <=150 [facility] Comment on above: Performed By: #### T 7, LIPID, TSH, CMP ####[facility] Y[address]ib[address]uzepg[address] [place] [id number]. Tadeo Smyth VLDL CALC 21.0 mg/dL Normal [facility] Comment on above: Performed By: #### T 7, LIPID, TSH, CMP ####[facility] Ifynjvhftb[address] [place] [id number]. Tadeo Smyth OCC BLD IMMUNO SCREENon 11-0 OCCULT BLOOD Negative Normal NEGATIVE [facility] Comment on above: Performed By: #### O BSCRN ####[facility] Ort[address] [place] [address]Dr. Tadeo Smyth PROF 14(COMP METB)on 022 Albumin [Mass/Vol] 3.7 g/dL Normal 3.4-5.0 [facility] Comment on above: Performed By: #### T 7, LIPID, TSH, CMP ####[facility] P[address]uspm[address]xv[address] [place] [address]Dr. Tadeo Smyth Albumin/Globulin [Mass ratio] 0.8 {ratio} Normal [facility] Comment on above: Performed By: #### T 7, LIPID, TSH, CMP ####[facility] Ec[address]herfa[address] [place] [address]Dr. Tadeo Smyth ALP [Catalytic activity/Vol] 141 U/L Critically high 46-116 [facility] Comment on above: Performed By: #### T 7, LIPID, TSH, CMP ####[facility] Nojblyzhye[address] [place] [address]Dr. Tadeo Smyth ALT [Catalytic activity/Vol] 23 U/L Normal 14-59 [facility] Comment on above: Performed By: #### T 7, LIPID, TSH, CMP ####[facility] Fuwcfxofcj[address] [place] [address]Dr. Tadeo Smyth Anion gap [Moles/Vol] 9.8 mmol/L Normal [facility] Comment on above: Performed By: #### T 7, LIPID, TSH, CMP ####[facility] Z[address]jjphofc[address] [place] [address]Dr. Tadeo Smyth AST [Catalytic activity/Vol] 13 U/L Critically low 15-37 [facility] Comment on above: Performed By: #### T 7, LIPID, TSH, CMP ####[facility] Smvwuutyjd[address] [place] [address]Dr. Tadeo Smyth Bilirubin [Mass/Vol] 0.4 mg/dL Normal 0.2-1.0 [facility] Comment on above: Performed By: #### T 7, LIPID, TSH, CMP ####[facility] Xqzihzovvu[address] [place], [place] [address]Dr. Tadeo Smyth Calcium [Mass/Vol] 10.2 mg/dL Critically high 8.5-10.1 [facility] Comment on above: Performed By: #### T 7, LIPID, TSH, CMP ####[facility] Xrifpgxrue13[address] [place], [place] [address]Dr. Tadeo Smyth Chloride [Moles/Vol] 101 mmol/L Normal 98-107 [facility] Comment on above: Performed By: #### T 7, LIPID, TSH, CMP ####[facility] Vsgqwubnou[address] [place], [place] [address]Dr. Tadeo Smyth CO2 [Moles/Vol] 32.8 mmol/L Critically high 21.0-32.0 [facility] Comment on above: Performed By: #### T 7, LIPID, TSH, CMP ####[facility] Wvpggfvtua[address] [place], [place] [address]Dr. Tadeo Smyth Creatinine [Mass/Vol] 0.92 mg/dL Normal 0.55-1.02 [facility] Comment on above: Performed By: #### T 7, LIPID, TSH, CMP ####[facility] Brmixzwyyg13[address] [place], [place] [address]Dr. Tadeo Smyth EGFR-AF SRI LANKAN >60 Normal >=60 [facility] Comment on above: Performed By: #### T 7, LIPID, TSH, CMP ####[facility] Tnhudiaizc[address] [place], [place] [address]Dr. Tadeo Smyth EGFR-NON AF SRI LANKAN >60 Normal >=60 [facility] Comment on above: Performed By: #### T 7, LIPID, TSH, CMP ####[facility] Qaqpiysbll24[address] [place], [place] [address]Dr. Tadeo Smyth Globulin (S) [Mass/Vol] 4.8 g/dL Normal [facility] Comment on above: Performed By: #### T 7, LIPID, TSH, CMP ####[facility] Kcspccdjsb[address] [place] [address]Dr. Tadeo Smyth Glucose [Mass/Vol] 114 mg/dL Critically high 74-106 [facility] Comment on above: Performed By: #### T 7, LIPID, TSH, CMP ####[facility] Yurjlxcsnt[address] [place] [address]Dr. Tadeo Smyth Potassium [Moles/Vol] 3.6 mmol/L Normal 3.5-5.1 [facility] Comment on above: Performed By: #### T 7, LIPID, TSH, CMP ####[facility] Uktpqxdqhp39[address] [place] [address]Dr. Tadeo Smyth Protein [Mass/Vol] 8.5 g/dL Critically high 6.4-8.2 [facility] Comment on above: Performed By: #### T 7, LIPID, TSH, CMP ####[facility] Avvtmzmsrz6127[address] [place], [place] [address]Dr. Tadeo Smyth Sodium [Moles/Vol] 140 mmol/L Normal 136-145 [facility] Comment on above: Performed By: #### T 7, LIPID, TSH, CMP ####[facility] Heerqgxarx0045[address] [place], [place] [address]Dr. Tadeo Smyth Urea nitrogen [Mass/Vol] 23.0 mg/dL Critically high 7.0-18.0 [facility] Comment on above: Performed By: #### T 7, LIPID, TSH, CMP ####[facility] Yvbtlubfxw[address] [place], [place] [address]Dr. Margotnicole Smyth Urea nitrogen/Creatinine [Mass ratio] 25.0 mg/mg Normal [facility] Comment on above: Performed By: #### T 7, LIPID, TSH, CMP ####[facility] Ggtmrnykqd[address] [place], [place] [address]Dr. Margotnicole Smyth TSHon 07-08-2022 TSH 3.748 uIU/mL Critically high 0.358-3.740 [facility] Comment on above: Performed By: #### T 7, LIPID, TSH, CMP ####[facility] Txdjuhfatn[address] [place], [place] [address]Dr. Tadeo Smyth UA RANDOM W/MICROSCOPICon BACTERIA TRACE Abnormal NONE SEEN [facility] Comment on above: Performed By: #### U AMIC ####[facility] Jcbdsyzzaj55[address] [place], [place] [address]Dr. Tadeo Smyth Bilirubin Ql (U) Negative Normal NEGATIVE [facility] Comment on above: Performed By: #### U AMIC ####[facility] Eptwnnusuo22[address] [place], [place] [address]Dr. Tadeo Smyth CAST NONE SEEN Normal NONE SEEN [facility] Comment on above: Performed By: #### U AMIC ####[facility] Sdtorddcbp24[address] [place], [place] [address]Dr. Tadeo Smyth Clarity (U) CLEAR Normal CLEAR [facility] Comment on above: Performed By: #### U AMIC ####[facility] Iyhixwfvcy[address] [place], [place] [address]Dr. Tadeo Smyth Color (U) YELLOW Normal YELLOW [facility] Comment on above: Performed By: #### U AMIC ####[facility] Hhqgcbmksm[address] [place], [place] [address]Dr. Tadeo Smyth Crystals LM Nom (Urine sed) NONE SEEN Normal NONE SEEN [facility] Comment on above: Performed By: #### U AMIC ####[facility] Alflvevyru[address] [place], [place] [address]Dr. Tadeo Smyth Epithelial cells LM Ql (Urine sed) FEW Abnormal NONE SEEN /RARE [facility] Comment on above: Performed By: #### U AMIC ####[facility] Atqldxohbh[address] [place], [place] [address]Dr. Tadeo Smyth Glucose Ql (U) Negative Normal NEGATIVE [facility] Comment on above: Performed By: #### U AMIC ####[facility] Okvsyprgei4[address] [place], [place] [address]Dr. Tadeo Smyth Hemoglobin Ql (U) SMALL Abnormal NEGATIVE [facility] Comment on above: Performed By: #### U AMIC ####[facility] Ghbiwiirqn[address] [place], [place] [address]Dr. Tadeo Smyth Ketones Ql (U) TRACE Abnormal NEGATIVE [facility] Comment on above: Performed By: #### U AMIC ####[facility] Bfzzwfkqfg[address] [place] [address]Dr. Tadeo Smyth LEUKOCYTES TRACE Abnormal NEGATIVE [facility] Comment on above: Performed By: #### U AMIC ####[facility] K[address]oaopuq[address] [place] [address]Dr. Tadeo Smyth MUCOUS NONE SEEN Normal NONE SEEN [facility] Comment on above: Performed By: #### U AMIC ####[facility] N[address]clseyife[address] [place] [address]Dr. Tadeo Smyth Nitrite Ql (U) Negative Normal NEGATIVE [facility] Comment on above: Performed By: #### U AMIC ####[facility] Pqyzcgzors[address] [place] [address]Dr. Tadeo Smyth pH (U) 6.5 [pH] Normal 5-9 [facility] Comment on above: Performed By: #### U AMIC ####[facility] Ihggskaxvo[address] [place], [place] [address]Dr. Tadeo Smyth RBC 5-10 Abnormal 0-2 [facility] Comment on above: Performed By: #### U AMIC ####[facility] Innolsyymu[address] [place], [place] [address]Dr. Tadeo Smyth SPEC GRAVITY 1.020 Normal 1.005-<=1.0 25 [facility] Comment on above: Performed By: #### U AMIC ####[facility] Xemmplfmea85[address] [place], [place] [address]Dr. Tadeo Smyth UA PROTEIN 30 mg/dl Abnormal NEGATIVE/ TRACE [facility] Comment on above: Performed By: #### U AMIC ####[facility] Xbcmehseer24[address] [place], [place] [address]Dr. Tadeo Smyth Urobilinogen Qn (U) 0.2 {Benito'U}/dL Normal 0.2 - 1. 0 [facility] Comment on above: Performed By: #### U AMIC ####[facility] Zqckweiisq414[address] [place], [place] [address]Dr. Tadeo Smyth WBC 2-5 Abnormal NONE SEEN [facility] Comment on above: Performed By: #### U AMIC ####[facility] Dcukumipty68[address] [place], [place] [address]Dr. Tadeo Smyth Covid-19 PCR (CVDTB)on 06-07 SARS-CoV-2 (COVID-19) RNA CHEN+probe Ql (Unsp spec) Not detected Normal NOT DETECTED [facility] Comment on above: Result Comment: When [...] for this test is supported by the Radiation Control Specialist of Health and Human Service's declaration that [...] be used). Performed By: #### C VDTBH ####[facility] Cjafumoxij38[address] [place], [place] [address]Dr. Tadeo Smyth CULTURE URINEon 06-09-2022 CULTURE URINE Normal [facility] Comment on above: Performed By: #### U RCX ####[facility] Jfmzuuhdhq5907[address] [place], [place] [address]Dr. Tadeo Smyth GI PANEL (PCR)on 06-07-2022 Adenovirus F 40/41 Not detected Normal NOT DETECTED [facility] Comment on above: Performed By: #### G IPANEL ####[facility] Mpbeerfbvv[address] [place], [place] [id number]. Tadeo Smyth Astrovirus Not detected Normal NOT DETECTED [facility] Comment on above: Performed By: #### G IPANEL ####[facility] Ajetxpueil41[address] [place], [place] [address]Dr. Margotnicole Smyth C. Diff toxin A/B Not detected Normal NOT DETECTED [facility] Comment on above: Performed By: #### G IPANEL ####[facility] Qqnahzwrmp[address] [place], [place] [address]Dr. Margotnicole Smyth Campylobacter Not detected Normal NOT DETECTED [facility] Comment on above: Performed By: #### G IPANEL ####[facility] Jaffzsulet[address] [place], [place] [address]Dr. Margotnicole Smyth Cryptosporidium Not detected Normal NOT DETECTED [facility] Comment on above: Performed By: #### G IPANEL ####[facility] Hmpglabaal36[address] [place], [place] [address]Dr. Tadeo Smyth Cyclos. Cayetanensis Not detected Normal NOT DETECTED [facility] Comment on above: Performed By: #### G IPANEL ####[facility] Ptnujezccy37[address] [place], [place] [address]Dr. Tadeo Smyth E. Coli O157 Not Applicable Normal Not Applicable [facility] Comment on above: Performed By: #### G IPANEL ####[facility] Mrgybmlcio8085[address] [place], [place] [address]Dr. Tadeo Smyth E. histolytica Not detected Normal NOT DETECTED [facility] Comment on above: Performed By: #### G IPANEL ####[facility] Vxjpvtnuah55[address] [place], [place] [address]Dr. Margotnicole Smyth EAEC Not detected Normal NOT DETECTED [facility] Comment on above: Performed By: #### G IPANEL ####[facility] Ibzwqrbbuk60[address] [place], [place] [address]Dr. Margotnicole Smyth EIEC Not detected Normal NOT DETECTED [facility] Comment on above: Performed By: #### G IPANEL ####[facility] Ruropnedlz9207[address] [place], [place] [address]Dr. Tadeo Smyth EPEC Not detected Normal NOT DETECTED [facility] Comment on above: Performed By: #### G IPANEL ####[facility] Amjznbjvil[address] [place], [place] [address]Dr. Tadeo Smyth ETEC Not detected Normal NOT DETECTED [facility] Comment on above: Performed By: #### G IPANEL ####[facility] Rwobccaarg[address] [place] [address]Dr. Tadeo Smyth G. Lamblia Not detected Normal NOT DETECTED [facility] Comment on above: Performed By: #### G IPANEL ####[facility] Xfrfvjwsqs59[address] [place] [id number]. Tadeo Smyth GIPANEL CONTROLS PASSED Normal [facility] Comment on above: Performed By: #### G IPANEL ####[facility] Dqfbhrhitn01[address] [place] [address]Dr. Tadeo MEZANL ARRON HEADER GI PANEL BACTERIA Normal T [facility] Comment on above: Performed By: #### G IPANEL ####[facility] Baoldkbfhd[address] [place], [place] [address]Dr. Tadeo CACERESHD ECOLI GI PANEL DIARRHEAGEN IC E.COLI / SHIGELLA Normal [facility] Comment on above: Performed By: #### G IPANEL ####[facility] Xjuurwccqm[address] [place], [place] [address]Dr. Margotnicole Haja GIPNLHD INFO SEE BELOW Normal [facility] Comment on above: Result Comment: EAEC - Enteroaggregative E. Coli EPEC- Enteropathogenic E. Coli ETEC- Enterotoxigenic E. Coli lt/st STEC- Shigella-like toxin-producing E. Coli stx1/stx2 EIEC- Shigella/Enteroinvasive E. Coli Performed By: #### G IPANEL ####[facility] Qduizyhhdu8811[address] [place], [place] [address]Dr. Tadeo Smyth GIPNLHD PARASITES GI PANEL PARASITES Normal [facility] Comment on above: Performed By: #### G IPANEL ####[facility] Jjgduxbgcp8059[address] [place], [place] [address]Dr. Tadeo Smyth GIPNLHD VIRUS GI PANEL VIRUSES Normal [facility] Comment on above: Performed By: #### G IPANEL ####[facility] Ehctoalbtu6404[address] [place], [place] [address]Dr. Tadeo Smyth Norovirus GI/GII Not detected Normal NOT DETECTED [facility] Comment on above: Performed By: #### G IPANEL ####[facility] Pnwvpypzzw95[address] [place], [place] [address]Dr. Tadeo Smyth P. Shigelloides Not detected Normal NOT DETECTED [facility] Comment on above: Performed By: #### G IPANEL ####[facility] Tbhwjntmqw8117[address] [place], [place] [address]Dr. Tadeo Smyth Rotavirus A Not detected Normal NOT DETECTED [facility] Comment on above: Performed By: #### G IPANEL ####[facility] Dygobmbsfk[address] [place], [place] [address]Dr. Tadeo Smyth Salmonella Not detected Normal NOT DETECTED [facility] Comment on above: Performed By: #### G IPANEL ####[facility] Nwlshdemsi[address] [place], [place] [address]Dr. Tadeo Smyth Sapovirus Not detected Normal NOT DETECTED [facility] Comment on above: Performed By: #### G IPANEL ####[facility] Veknpjuonj16[address] [place], [place] [address]Dr. Tadeo Smyth STEC Not detected Normal NOT DETECTED [facility] Comment on above: Performed By: #### G IPANEL ####[facility] Plwpfikiww7917[address] [place], [place] [address]Dr. Tadeo Smyth Vibrio Not detected Normal NOT DETECTED [facility] Comment on above: Performed By: #### G IPANEL ####[facility] Hllbrjoxdf64[address] [place], [place] [address]Dr. Tadeo Smyth Vibrio Cholera Not detected Normal NOT DETECTED [facility] Comment on above: Performed By: #### G IPANEL ####[facility] Yhlmwyzluv4[address] [place], [place] [address]Dr. Tadeo Smyth Y. Enterocolitica Not detected Normal NOT DETECTED [facility] Comment on above: Performed By: #### G IPANEL ####[facility] Iqxypliaxl6[address] [place], [place] [address]Dr. Tadeo Smyth AMYLASEon 06-06-2022 Amylase [Catalytic activity/Vol] 61 U/L Normal 25-115 [facility] Comment on above: Performed By: #### A TANYA KEITH ####[facility] [address]ribf[address] [place] [address]Dr. Tadeo Smyth CBC AUTO DIFFon 06-06-2022 BASO # 0.0 103/ul Normal 0.0-0.1 [facility] Comment on above: Performed By: #### C BC ####[facility] Uzovbkdwjb8066[address] [place], [place] [address]Dr. Tadeo Smyth Basophils/100 WBC (Bld) 0.5 % Normal 0.2-2.0 [facility] Comment on above: Performed By: #### C BC ####[facility] Mepczzeado14[address] [place], [place] [address]Dr. Tadeo Smyth EO # 0.2 103/ul Normal 0.0-0.7 [facility] Comment on above: Performed By: #### C BC ####[facility] Tsrsjuqazs[address] [place], [place] [address]Dr. Tadeo Smyth Eosinophils/100 WBC (Bld) 3.4 % Normal 0.9-7.0 [facility] Comment on above: Performed By: #### C BC ####[facility] Lbbhpjzbwd2452[address] [place], [place] [address]Dr. Margotnicole Smyth Erythrocyte distribution width (RBC) [Ratio] 13.2 % Normal 11.0-15.0 [facility] Comment on above: Performed By: #### C BC ####[facility] Qwevufcleo6833[address] [place], [place] [address]Dr. Tadeo Smyth Hematocrit (Bld) [Volume fraction] 38.3 % Normal 36.0-48.0 [facility] Comment on above: Performed By: #### C BC ####[facility] Idcpmsqvnr19[address] [place], [place] [address]Dr. Tadeo Smyth Hemoglobin (Bld) [Mass/Vol] 12.0 g/dL Normal 12.0-16.0 [facility] Comment on above: Performed By: #### C BC ####[facility] Pekiwyjapc62[address] [place], [place] [address]Dr. Tadeo Smyth IG # 0.01 10e3/ul Normal 0.00-0.03 [facility] Comment on above: Performed By: #### C BC ####[facility] Dwlwnqvcct9[address] [place] [address]DrNeo Tadeo Smyth IG % 0.2 % Normal 0.0-0.5 [facility] Comment on above: Performed By: #### C BC ####[facility] Upakoobpax8766[address] [place], [place] [address]DrNeo Tadeo Haja LYMPH # 1.7 103/ul Normal 1.2-3.8 [facility] Comment on above: Performed By: #### C BC ####[facility] Ofksjrlqou60[address] [place], [place] [address]DrNeo Margotnicole Smyth Lymphocytes/100 WBC (Bld) 28.1 % Normal 20.5-60.0 [facility] Comment on above: Performed By: #### C BC ####[facility] Lmkcujienq33[address] [place], [place] [address]DrNeo Margotnicole Smyth MANUAL DIFF REQ NO Normal [facility] Comment on above: Performed By: #### C BC ####[facility] Cfmwzskdst[address] [place], [place] [address]DrNeo Tadeo Haja MCH (RBC) [Entitic mass] 28.5 pg Normal 26.7-34.0 [facility] Comment on above: Performed By: #### C BC ####[facility] Yltggaoicx[address] [place], [place] [address]DrNeo Tadeo Haja MCHC (RBC) [Mass/Vol] 31.3 g/dL Normal 29.9-35.2 [facility] Comment on above: Performed By: #### C BC ####[facility] Inybcpjbay[address] [place], [place] [address]DrNeo aMrgotnicole Smyth MCV (RBC) [Entitic vol] 91.0 fL Normal 81.0-99.0 [facility] Comment on above: Performed By: #### C BC ####[facility] Vrpideueqc[address] [place], [place] [address]DrNeo Smyth MONO # 0.4 103/ul Normal 0.3-0.8 [facility] Comment on above: Performed By: #### C BC ####[facility] Nzw[address]xfmxkx18[address] [place] [id number]. Tadeo Smyth Monocytes/100 WBC (Bld) 7.1 % Normal 1.7-12.0 [facility] Comment on above: Performed By: #### C BC ####[facility] Mqplrochkx8[address] [place] [id number]. Tadeo Smyth NEUT # 3.6 103/ul Normal 1.4-6.5 [facility] Comment on above: Performed By: #### C BC ####[facility] Dkqtijqpmt75[address] [place] [id number]. Tadeo Smyth Neutrophils/100 WBC (Bld) 60.7 % Normal 43.0-75.0 [facility] Comment on above: Performed By: #### C BC ####[facility] F[address]kbztuyqe[address] [place] [address]Dr. Tadeo Smyth Platelet mean volume (Bld) [Entitic vol] 8.9 fL Critically low 9.5-13.5 [facility] Comment on above: Performed By: #### C BC ####[facility] Eptprhweqa74[address] [place] [id number]. Tadeo Smyth PLT 374 103/ul Normal 150-450 [facility] Comment on above: Performed By: #### C BC ####[facility] Orkjwluatd17[address] [place] [id number]. Tadeo Smyth RBC 4.21 106/ul Normal 4.20-5.40 [facility] Comment on above: Performed By: #### C BC ####[facility] Cktpqjldob90[address] [place] [id number]. Tadeo Smyth WBC 5.9 103/ul Normal 4.0-11.0 [facility] Comment on above: Performed By: #### C BC ####[facility] Njjsneivtt[address] [place] [id number]. Tadeo Smyth CT ABD/PELV W CONon 06-06-[address] ABD/PELV W CON Normal [facility] ER URINE PROFILEon 2 Bilirubin Ql (U) Negative Normal NEGATIVE [facility] Comment on above: Performed By: #### SANDRO MERCHANTRO ####[facility] Ukqffjtyuu[address] [place], [place] [address]Dr. Tadeo Smyth Clarity (U) CLOUDY Abnormal CLEAR [facility] Comment on above: Performed By: #### RANDI MERCHANTICRO ####[facility] Bvacubnupq[address] [place], [place] [address]Dr. Tadeo Smyth Color (U) LT. YELLOW Normal YELLOW [facility] Comment on above: Performed By: #### SANDRO MERCHANTRO ####[facility] Itvwyntlxp[address] [place], [place] [address]Dr. Tadeo CAMARGOD A micrscopic examina tion will be performed if indicated. Normal [facility] Comment on above: Performed By: #### SANDRO MERCHANTRO ####[facility] Tnmwvonfpg[address] [place], [place] [address]Dr. Tadeo Smyth Glucose Ql (U) Negative Normal NEGATIVE [facility] Comment on above: Performed By: #### SANDRO MERCHANTRO ####[facility] Twofpysgjq4[address] [place], [place] [address]Dr. Tadeo Smyth Hemoglobin Ql (U) TRACE-INTACT Abnormal NEGATIVE [facility] Comment on above: Performed By: #### SANDRO MERCHANTRO ####[facility] Anakgsibxb7[address] [place], [place] [address]Dr. Tadeo Smyth Ketones Ql (U) Negative Normal NEGATIVE [facility] Comment on above: Performed By: #### RANDI MERCHANTICRO ####[facility] Ntbktftlvl7[address] [place], [place] [address]Dr. Tadeo Smyth LEUKOCYTES SMALL Abnormal NEGATIVE [facility] Comment on above: Performed By: #### RANDI MERCHANTICRO ####[facility] Jkfxnvilnv7[address] [place], [place] [address]Dr. Tadeo Smyth Nitrite Ql (U) Negative Normal NEGATIVE [facility] Comment on above: Performed By: #### SANDRO MERCHANTRO ####[facility] Tasvggtfeo[address] [place] [address]Dr. Tadeo Smyth pH (U) 6.0 [pH] Normal 5-9 [facility] Comment on above: Performed By: #### SANDRO MERCHANTRO ####[facility] G[address]ixwepipm[address] [place] [address]Dr. Tadeo Smyth SPEC GRAVITY 1.020 Normal 1.005-<=1.0 25 [facility] Comment on above: Performed By: #### [facility] ####[facility] Gvrgydljfg[address] [place] [address]Dr. Tadeo Smyth UA PROTEIN Negative Normal NEGATIVE/ TRACE [facility] Comment on above: Performed By: #### Matthew FRANCISCO CHINEDURO ####[facility] Injnrvbhly[address] [place], [place] [address]Dr. Tadeo Smyth UR MICRO IND INDICATED Normal [facility] Comment on above: Performed By: #### [facility] ####[facility] Dsujoiyops[address] [place], [place] [address]Dr. Tadeo Smyth Urobilinogen Qn (U) 0.2 {Benito'U}/dL Normal 0.2 - 1. 0 [facility] Comment on above: Performed By: #### Matthew FRANCISCO CHINEDURO ####[facility] Djsubqxoaw[address] [place], [place] [address]Dr. Tadeo Smyth LIPASEon 06-06-2022 Lipase [Catalytic activity/Vol] 100.0 U/L Normal 73.0-393.0 [facility] Comment on above: Performed By: #### A MY, LIPA ####[facility] Pfascxwirt[address] [place], [place] [address]Dr. Tadeo Smyth PROF 14(COMP METB)on 022 Albumin [Mass/Vol] 3.3 g/dL Critically low 3.4-5.0 [facility] Comment on above: Performed By: #### C MP ####[facility] Dtcxndkisx[address] [place], [place] [address]Dr. Tadeo Smyth Albumin/Globulin [Mass ratio] 0.9 {ratio} Normal [facility] Comment on above: Performed By: #### C MP ####[facility] [address]wxbbh[address] [place] [address]Dr. Tadeo Haja ALP [Catalytic activity/Vol] 140 U/L Critically high 46-116 [facility] Comment on above: Performed By: #### C MP ####[facility] Nmoekifili[address] [place] [address]Dr. Tadeo Haja ALT [Catalytic activity/Vol] 23 U/L Normal 14-59 [facility] Comment on above: Performed By: #### C MP ####[facility] Dhvvlyrgda[address] [place] [address]Dr. Tadeo Smyth Anion gap [Moles/Vol] 11.6 mmol/L Normal [facility] Comment on above: Performed By: #### C MP ####[facility] Pmgyxmjcub[address] [place], [place] [address]Dr. Tadeo Haja AST [Catalytic activity/Vol] 18 U/L Normal 15-37 [facility] Comment on above: Performed By: #### C MP ####[facility] Jhnrmfztwn[address] [place], [place] [address]Dr. Tadeo Smyth Bilirubin [Mass/Vol] 0.2 mg/dL Normal 0.2-1.0 [facility] Comment on above: Performed By: #### C MP ####[facility] Osbmwkgwva[address] [place] [address]Dr. Tadeo Smyth Calcium [Mass/Vol] 8.8 mg/dL Normal 8.5-10.1 [facility] Comment on above: Performed By: #### C MP ####[facility] Nacwycokzh[address] [place] [address]Dr. Tadeo Smyth Chloride [Moles/Vol] 109 mmol/L Critically high 98-107 [facility] Comment on above: Performed By: #### C MP ####[facility] Nraegxtnxy[address] [place] [address]Dr. Tadeo Smyth CO2 [Moles/Vol] 26.3 mmol/L Normal 21.0-32.0 [facility] Comment on above: Performed By: #### C MP ####[facility] Nosishjhqu[address] [place] [address]Dr. Tadeo Smyth Creatinine [Mass/Vol] 0.81 mg/dL Normal 0.55-1.02 [facility] Comment on above: Performed By: #### C MP ####[facility] Bkvzfgchng[address] [place] [address]Dr. Tadeo Haja EGFR-AF SRI LANKAN >60 Normal >=60 [facility] Comment on above: Performed By: #### C MP ####[facility] Puabklzywc[address] [place] [address]Dr. Tadeo Haja EGFR-NON AF SRI LANKAN >60 Normal >=60 [facility] Comment on above: Performed By: #### C MP ####[facility] Gbdxecbsvg[address] [place], [place] [address]Dr. Tadeo Haja Globulin (S) [Mass/Vol] 3.7 g/dL Normal [facility] Comment on above: Performed By: #### C MP ####[facility] Unkshfesap4[address] [place], [place] [address]Dr. Tadeo Haja Glucose [Mass/Vol] 90 mg/dL Normal 74-106 [facility] Comment on above: Performed By: #### C MP ####[facility] Hpldefudxz[address] [place], [place] [address]Dr. Tadeo Smyth Potassium [Moles/Vol] 3.9 mmol/L Normal 3.5-5.1 [facility] Comment on above: Performed By: #### C MP ####[facility] Norbhipzmi2818[address] [place], [place] [address]Dr. Tadeo Smyth Protein [Mass/Vol] 7.0 g/dL Normal 6.4-8.2 [facility] Comment on above: Performed By: #### C MP ####[facility] Fafryfpzxn4[address] [place], [place] [address]Dr. Tadeo Smyth Sodium [Moles/Vol] 143 mmol/L Normal 136-145 [facility] Comment on above: Performed By: #### C MP ####[facility] Wkvpsludjn24[address] [place] [address]Dr. Tadeo Smyth Urea nitrogen [Mass/Vol] 12.0 mg/dL Normal 7.0-18.0 [facility] Comment on above: Performed By: #### C MP ####[facility] Olslhyexwk[address] [place] [address]Dr. Tadeo Smyth Urea nitrogen/Creatinine [Mass ratio] 14.8 mg/mg Normal [facility] Comment on above: Performed By: #### C MP ####[facility] Qdkzxqunhi05[address] [place] [address]Dr. Tadeo Smyth URINE MICROSCOPIC ONLYon BACTERIA LARGE Abnormal NONE SEEN [facility] Comment on above: Performed By: #### SANDRO MERCHANTRO ####[facility] Euhsmtobtd[address] [place], [place] [address]Dr. Tadeo Smyth Bacteria identified Cx Nom (U) INDICATED Normal [facility] Comment on above: Performed By: #### SANDRO MERCHANTRO ####[facility] Dflyfawhuf[address] [place] [address]Dr. Tadeo Smyth CAST NONE SEEN Normal NONE SEEN [facility] Comment on above: Performed By: #### SANDRO MERCHANTRO ####[facility] Xbgimjfkbs4[address] [place], [place] [address]Dr. Tadeo Smyth Crystals LM Nom (Urine sed) NONE SEEN Normal NONE SEEN [facility] Comment on above: Performed By: #### SANDRO MERCHANTRO ####[facility] Vljzrwpssg[address] [place], [place] [address]Dr. Tadeo Smyth Epithelial cells LM Ql (Urine sed) RARE Normal NONE SEEN /RARE [facility] Comment on above: Performed By: #### SANDRO MERCHANTRO ####[facility] Fyxrwdarcc49[address] [place] [address]Dr. Tadeo Smyth MUCOUS TRACE Abnormal NONE SEEN [facility] Comment on above: Performed By: #### SANDRO MERCHANTRO ####[facility] Aabzfcympp[address] [place] [address]Dr. Tadeo Smyth RBC 0-2 Normal 0-2 [facility] Comment on above: Performed By: #### KAROL MERCHANT ####[facility] Btfcghnflj027[address] [place] [address]Dr. Tadeo Smyth WBC 2-5 Abnormal NONE SEEN [facility] Comment on above: Performed By: #### KAROL MERCHANT ####[facility] Vjxcacmkgd[address] [place], [place] [address]Dr. Tadeo Smyth AMYLASEon 06-04-2022 Amylase [Catalytic activity/Vol] 61 U/L Normal 25-115 [facility] Comment on above: Performed By: #### A MY, CMP, LIPA ####[facility] Wxonxizcfn04[address] [place], [place] [address]Dr. Tadeo Smyth CBC AUTO DIFFon 06-04-2022 BASO # 0.0 103/ul Normal 0.0-0.1 [facility] Comment on above: Performed By: #### C BC ####[facility] Fhywfwmilm647[address] [place], [place] [address]Dr. Tadeo Smyth Basophils/100 WBC (Bld) 0.5 % Normal 0.2-2.0 [facility] Comment on above: Performed By: #### C BC ####[facility] Apfnwiqqvl0317[address] [place], [place] [address]Dr. Tadeo Smyth EO # 0.3 103/ul Normal 0.0-0.7 [facility] Comment on above: Performed By: #### C BC ####[facility] Tnukvhowon7[address] [place], [place] [address]Dr. Tadeo Smyth Eosinophils/100 WBC (Bld) 4.7 % Normal 0.9-7.0 [facility] Comment on above: Performed By: #### C BC ####[facility] Sfvgoselra4087[address] [place], [place] [address]Dr. Tadeo Smyth Erythrocyte distribution width (RBC) [Ratio] 13.2 % Normal 11.0-15.0 [facility] Comment on above: Performed By: #### C BC ####[facility] Jsixopkrgh9[address] [place] [address]Dr. Tadeo Smyth Hematocrit (Bld) [Volume fraction] 36.9 % Normal 36.0-48.0 [facility] Comment on above: Performed By: #### C BC ####[facility] Xwaetnocdn[address] [place] [address]Dr. Tadeo Haja Hemoglobin (Bld) [Mass/Vol] 11.9 g/dL Critically low 12.0-16.0 [facility] Comment on above: Performed By: #### C BC ####[facility] Nwqrdqymvn22[address] [place] [address]Dr. Tadeo Smyth IG # 0.01 10e3/ul Normal 0.00-0.03 [facility] Comment on above: Performed By: #### C BC ####[facility] Vusafocyak8[address] [place], [place] [address]Dr. Tadeo Smyth IG % 0.2 % Normal 0.0-0.5 [facility] Comment on above: Performed By: #### C BC ####[facility] Lrbkhbalpy0[address] [place], [place] [address]Dr. Tadeo Smyth LYMPH # 2.3 103/ul Normal 1.2-3.8 [facility] Comment on above: Performed By: #### C BC ####[facility] Vwuumqywji01[address] [place], [place] [address]Dr. Tadeo Smyth Lymphocytes/100 WBC (Bld) 37.3 % Normal 20.5-60.0 [facility] Comment on above: Performed By: #### C BC ####[facility] Hgbpnuukdm3287[address] [place], [place] [address]Dr. Tadeo Smyth MANUAL DIFF REQ NO Normal [facility] Comment on above: Performed By: #### C BC ####[facility] Lvdtlsxcap44[address] [place], [place] [address]Dr. Tadeo Smyth MCH (RBC) [Entitic mass] 29.0 pg Normal 26.7-34.0 [facility] Comment on above: Performed By: #### C BC ####[facility] [address]uktvjkt[address] [place] [address]Dr. Tadeo Smyth MCHC (RBC) [Mass/Vol] 32.2 g/dL Normal 29.9-35.2 [facility] Comment on above: Performed By: #### C BC ####[facility] Ycsxjmoaxk60[address] [place] [address]Dr. Tadeo Smyth MCV (RBC) [Entitic vol] 90.0 fL Normal 81.0-99.0 [facility] Comment on above: Performed By: #### C BC ####[facility] Rjsiettsfs[address] [place] [address]Dr. Tadeo Haja MONO # 0.4 103/ul Normal 0.3-0.8 [facility] Comment on above: Performed By: #### C BC ####[facility] Onnoyazraa[address] [place], [place] [address]Dr. Margotnicole Smyth Monocytes/100 WBC (Bld) 6.8 % Normal 1.7-12.0 [facility] Comment on above: Performed By: #### C BC ####[facility] Gngzrmkdfu8169[address] [place], [place] [address]Dr. Tadeo Smyth NEUT # 3.2 103/ul Normal 1.4-6.5 [facility] Comment on above: Performed By: #### C BC ####[facility] Lhiwxunbfs[address] [place], [place] [address]Dr. Tadeo Smyth Neutrophils/100 WBC (Bld) 50.5 % Normal 43.0-75.0 [facility] Comment on above: Performed By: #### C BC ####[facility] Ltohmqmkif[address] [place], [place] [id number]. Tadeo Smyth Platelet mean volume (Bld) [Entitic vol] 8.9 fL Critically low 9.5-13.5 [facility] Comment on above: Performed By: #### C BC ####[facility] Nbwmcwiqjq16[address] [place], [place] [address]Dr. Tadeo Haja PLT 387 103/ul Normal 150-450 [facility] Comment on above: Performed By: #### C BC ####[facility] Ibhbimqkjk6344 [place] [address]Dr. Tadeo Smyth RBC 4.10 106/ul Critically low 4.20-5.40 [facility] Comment on above: Performed By: #### C BC ####[facility] Xrfdzlotqt6[address] [place], [place] [address]Dr. Tadeo Smyth WBC 6.2 103/ul Normal 4.0-11.0 [facility] Comment on above: Performed By: #### C BC ####[facility] Jzadzhacwl12[address] [place], [place] [address]Dr. Tadeo Smyth CT ABD/PELV W CONon 06-04-[address] ABD/PELV W CON Normal [facility] ER URINE PROFILEon 2 Bilirubin Ql (U) Negative Normal NEGATIVE [facility] Comment on above: Performed By: #### SANDRO MERCHANTRO ####[facility] Oiilfnmgdi96[address] [place], [place] [address]Dr. Tadeo Smyth Clarity (U) CLEAR Normal CLEAR [facility] Comment on above: Performed By: #### KAROL MERCHANT ####[facility] Mzqhhuihmi[address] [place], [place] [address]Dr. Tadeo Smyth Color (U) LT. YELLOW Normal YELLOW [facility] Comment on above: Performed By: #### KAROL MECRHANT ####[facility] Syirxzwgjq[address] [place], [place] [address]Dr. Tadeo Smyth ERUAHD A micrscopic examina tion will be performed if indicated. Normal [facility] Comment on above: Performed By: #### KAROL MERCHANT ####[facility] Rgyfeppdwu44[address] [place], [place] [address]Dr. Tadeo Smyth Glucose Ql (U) Negative Normal NEGATIVE [facility] Comment on above: Performed By: #### SANDRO MERCHANTRO ####[facility] Waqfjfpfem[address] [place], [place] [address]Dr. Tadeo Smyth Hemoglobin Ql (U) TRACE-INTACT Abnormal NEGATIVE [facility] Comment on above: Performed By: #### SANDRO MERCHANTRO ####[facility] Fngctzykum[address] [place] [address]Dr. Tadeo Smyth Ketones Ql (U) Negative Normal NEGATIVE [facility] Comment on above: Performed By: #### KAROL MERCHANT ####[facility] Lkwmidwjmv9[address] [place] [address]Dr. Tadeo Smyth LEUKOCYTES Negative Normal NEGATIVE [facility] Comment on above: Performed By: #### KAROL MERCHANT ####[facility] Zlvbzqcxpg2913 [place] [address]Dr. Tadeo Smyth Nitrite Ql (U) Negative Normal NEGATIVE [facility] Comment on above: Performed By: #### KAROL MERCHATN ####[facility] Vxgrbdmtfq7486 [place] [address]Dr. Tadeo Smyth pH (U) 6.5 [pH] Normal 5-9 [facility] Comment on above: Performed By: #### KAROL MERCHANT ####[facility] Oqqpxdzomx11[address] [place], [place] [address]Dr. Tadeo Smyth SPEC GRAVITY 1.015 Normal 1.005-<=1.0 25 [facility] Comment on above: Performed By: #### KAROL MERCHANT ####[facility] Jfulzyfybj8[address] [place], [place] [address]Dr. Tadeo Smyth UA PROTEIN Negative Normal NEGATIVE/ TRACE [facility] Comment on above: Performed By: #### KAROL MERCHANT ####[facility] Oyxjehnajy8[address] [place], [place] [address]Dr. Tadeo Smyth UR MICRO IND INDICATED Normal [facility] Comment on above: Performed By: #### SANDRO MERCHANTRO ####[facility] Gncgoochre[address] [place], [place] [address]Dr. Tadeo Smyth Urobilinogen Qn (U) 0.2 {Benito'U}/dL Normal 0.2 - 1. 0 [facility] Comment on above: Performed By: #### KAROL MERCHANT ####[facility] Egtozbrtyr8[address] [place], [place] [address]Dr. Tadeo Smyth LIPASEon 06-04-2022 Lipase [Catalytic activity/Vol] 81.0 U/L Normal 73.0-393.0 [facility] Comment on above: Performed By: #### A MY, CMP, LIPA ####[facility] Ajjsmyxygo8[address] [place] [address]Dr. Tadeo Smyth PROF 14(COMP METB)on 022 Albumin [Mass/Vol] 3.6 g/dL Normal 3.4-5.0 [facility] Comment on above: Performed By: #### A MY, CMP, LIPA ####[facility] Hfrvxieyia8[address] [place] [address]Dr. Tadeo Smyth Albumin/Globulin [Mass ratio] 1.0 {ratio} Normal [facility] Comment on above: Performed By: #### A MY, CMP, LIPA ####[facility] Kzkzonjypt02[address] [place] [address]Dr. Tadeo Smyth ALP [Catalytic activity/Vol] 150 U/L Critically high 46-116 [facility] Comment on above: Performed By: #### A MY, CMP, LIPA ####[facility] Ojnojwpnkh9[address] [place] [address]Dr. Tadeo Smyth ALT [Catalytic activity/Vol] 23 U/L Normal 14-59 [facility] Comment on above: Performed By: #### A MY, CMP, LIPA ####[facility] Mucbqixrew75[address] [place] [address]Dr. Tadeo Smyth Anion gap [Moles/Vol] 13.2 mmol/L Normal [facility] Comment on above: Performed By: #### A MY, CMP, LIPA ####[facility] Kpmscjelul5791 [place] [address]Dr. Tadeo Smyth AST [Catalytic activity/Vol] 12 U/L Critically low 15-37 [facility] Comment on above: Performed By: #### A MY, CMP, LIPA ####[facility] Evvwxqdogs8081 [place] [address]Dr. Tadeo Smyth Bilirubin [Mass/Vol] 0.1 mg/dL Critically low 0.2-1.0 [facility] Comment on above: Performed By: #### A MY, CMP, LIPA ####[facility] Qvsciwksjn9792 [place] [address]Dr. Tadeo Smyth Calcium [Mass/Vol] 9.0 mg/dL Normal 8.5-10.1 [facility] Comment on above: Performed By: #### A MY, CMP, LIPA ####[facility] Ppnwevkhqf9[address] [place] [address]Dr. Tadeo Smyth Chloride [Moles/Vol] 104 mmol/L Normal 98-107 [facility] Comment on above: Performed By: #### A MY, CMP, LIPA ####[facility] Rcxwfvyruu[address] [place], [place] [address]Dr. Tadeo Smyth CO2 [Moles/Vol] 26.6 mmol/L Normal 21.0-32.0 [facility] Comment on above: Performed By: #### A MY, CMP, LIPA ####[facility] Ugzorsfufh22[address] [place], [place] [address]Dr. Tadeo Smyth Creatinine [Mass/Vol] 0.97 mg/dL Normal 0.55-1.02 [facility] Comment on above: Performed By: #### A MY, CMP, LIPA ####[facility] Xmdxbzeztl3[address] [place] [address]Dr. Tadeo Smyth EGFR-AF SRI LANKAN >60 Normal >=60 [facility] Comment on above: Performed By: #### A MY, CMP, LIPA ####[facility] Dubjsihxgq9814 [place] [address]Dr. Tadeo Smyth EGFR-NON AF SRI LANKAN 60 mL/min/1.73m2 Normal >=60 [facility] Comment on above: Performed By: #### A MY, CMP, LIPA ####[facility] Mihqkurvnh77[address] [place] [address]Dr. Tadeo Smyth Globulin (S) [Mass/Vol] 3.7 g/dL Normal [facility] Comment on above: Performed By: #### A MY, CMP, LIPA ####[facility] Pljvgktduq6827 [place] [address]Dr. Tadeo Smyth Glucose [Mass/Vol] 109 mg/dL Critically high 74-106 [facility] Comment on above: Performed By: #### A MY, CMP, LIPA ####[facility] Iyiutlxvkh9810 [place] [address]Dr. Tadeo Smyth Potassium [Moles/Vol] 3.8 mmol/L Normal 3.5-5.1 [facility] Comment on above: Performed By: #### A MY, CMP, LIPA ####[facility] Qanyjwjmnp4553 [place] [address]Dr. Tadeo Smyth Protein [Mass/Vol] 7.3 g/dL Normal 6.4-8.2 [facility] Comment on above: Performed By: #### A MY, CMP, LIPA ####[facility] Bdytmcfvof8623 [place] [address]Dr. Tadeo Smyth Sodium [Moles/Vol] 140 mmol/L Normal 136-145 [facility] Comment on above: Performed By: #### A MY, CMP, LIPA ####[facility] Immgopinjc[address] [place] [address]Dr. Tadeo Smyth Urea nitrogen [Mass/Vol] 21.0 mg/dL Critically high 7.0-18.0 [facility] Comment on above: Performed By: #### A MY, CMP, LIPA ####[facility] Vvgucofpiq0355 [place] [address]Dr. Tadeo Smyth Urea nitrogen/Creatinine [Mass ratio] 21.6 mg/mg Normal [facility] Comment on above: Performed By: #### A MY, CMP, LIPA ####[facility] Qmucjyjdku5087 [place] [address]Dr. Tadeo Smyth URINE MICROSCOPIC ONLYon BACTERIA NONE SEEN Normal NONE SEEN [facility] Comment on above: Performed By: #### E RUR UMICRO ####[facility] Bcmjojohiu[address] [place] [address]Dr. Tadeo Smyth Bacteria identified Cx Nom (U) NOT INDICATED Normal [facility] Comment on above: Performed By: #### E RUR, UMICRO ####[facility] Hfobhlxpng9499 [place] [address]Dr. Tadeo Smyth CAST NONE SEEN Normal NONE SEEN [facility] Comment on above: Performed By: #### E RUR, UMICRO ####[facility] Mtdtymsnfs0389 [place] [address]Dr. Tadeo Smyth Crystals LM Nom (Urine sed) NONE SEEN Normal NONE SEEN [facility] Comment on above: Performed By: #### E RUR, UMICRO ####[facility] Kiuakirjkz5[address] [place] [address]Dr. Tadeo Smyth Epithelial cells LM Ql (Urine sed) FEW Abnormal NONE SEEN /RARE [facility] Comment on above: Performed By: #### E RUR, UMICRO ####[facility] Ijzedjxqqj8225 [place] [address]Dr. Tadeo Smyth MUCOUS NONE SEEN Normal NONE SEEN [facility] Comment on above: Performed By: #### E RUYovanny UMICRO ####[facility] Ylhjbsrubj88[address] [place], [place] [address]Dr. Tadeo Smyth RBC 0-2 Normal 0-2 [facility] Comment on above: Performed By: #### E RUR, UMICRO ####[facility] Graignnovd0333 [place] [address]Dr. Tadeo Smyth WBC NONE SEEN Normal NONE SEEN [facility] Comment on above: Performed By: #### E RUYovanny, UMICRO ####[facility] [address]mjpyegvmo[address] [place], [place] [address]Dr. Tadeo Smyth MICRO OTHER TESTSOrdered By: Guillermo Rocha on 04-29-2022 Fecal WBC Lactoferrin Negative (04/29/22 8:00 AM) Normal Negative [facility] [place] CULTURE URINEon 03-31-2022 CULTURE URINE Normal [facility] Comment on above: Performed By: #### U RCX ####[facility] Gggllhlexa[address] [place], [place] [address]Dr. Tadeo Smyth CBC AUTO DIFFon 03-30-2022 BASO # 0.0 103/ul Normal 0.0-0.1 [facility] Comment on above: Performed By: #### C BC ####[facility] Urusblavsx4[address] [place], [place] [address]Dr. Tadeo Haja Basophils/100 WBC (Bld) 0.4 % Normal 0.2-2.0 [facility] Comment on above: Performed By: #### C BC ####[facility] Zorhqqtjwo7[address] [place], [place] [address]Dr. Tadeo Smyth EO # 0.3 103/ul Normal 0.0-0.7 [facility] Comment on above: Performed By: #### C BC ####[facility] Svxsrqkuog349[address] [place], [place] [address]Dr. Tadeo Smyth Eosinophils/100 WBC (Bld) 5.1 % Normal 0.9-7.0 [facility] Comment on above: Performed By: #### C BC ####[facility] Xsrfockxus6674[address] [place], [place] [address]Dr. Margotnicole Smyth Erythrocyte distribution width (RBC) [Ratio] 12.8 % Normal 11.0-15.0 [facility] Comment on above: Performed By: #### C BC ####[facility] Yyyepbmrbg20[address] [place], [place] [address]Dr. Tadeo Smyth Hematocrit (Bld) [Volume fraction] 36.4 % Normal 36.0-48.0 [facility] Comment on above: Performed By: #### C BC ####[facility] Vhydpwrosu8739[address] [place], [place] [address]Dr. Margotnicole Smyth Hemoglobin (Bld) [Mass/Vol] 12.0 g/dL Normal 12.0-16.0 [facility] Comment on above: Performed By: #### C BC ####[facility] Gmwlnpigyn14[address] [place], [place] [address]Dr. Tadeo Smyth IG # 0.02 10e3/ul Normal 0.00-0.03 [facility] Comment on above: Performed By: #### C BC ####[facility] Lugnjkniru0163 [place] [address]Dr. Margotnicole Smyth IG % 0.4 % Normal 0.0-0.5 [facility] Comment on above: Performed By: #### C BC ####[facility] Azgudrvreb[address] [place], [place] [address]Dr. Tadeo Smyth LYMPH # 1.4 103/ul Normal 1.2-3.8 [facility] Comment on above: Performed By: #### C BC ####[facility] Ootcscjikw69[address] [place], [place] [address]DrNeo Smyth Lymphocytes/100 WBC (Bld) 25.5 % Normal 20.5-60.0 [facility] Comment on above: Performed By: #### C BC ####[facility] Dwhxefyexy74[address] [place], [place] [address]Dr. Tadeo Smyth MANUAL DIFF REQ NO Normal [facility] Comment on above: Performed By: #### C BC ####[facility] Bbnasdinat01[address] [place], [place] [address]Dr. Tadeo Haja MCH (RBC) [Entitic mass] 29.1 pg Normal 26.7-34.0 [facility] Comment on above: Performed By: #### C BC ####[facility] Sfxtxdeljs98[address] [place], [place] [address]Dr. Tadeo Haja MCHC (RBC) [Mass/Vol] 33.0 g/dL Normal 29.9-35.2 [facility] Comment on above: Performed By: #### C BC ####[facility] Ebxkwwzpwm42[address] [place], [place] [address]DrNeo Smyth MCV (RBC) [Entitic vol] 88.3 fL Normal 81.0-99.0 [facility] Comment on above: Performed By: #### C BC ####[facility] Dtsqufbjat67[address] [place], [place] [address]DrNeo Smyth MONO # 0.4 103/ul Normal 0.3-0.8 [facility] Comment on above: Performed By: #### C BC ####[facility] Ntkmesnxkx70[address] [place], [place] [address]Dr. Tadeo Smyth Monocytes/100 WBC (Bld) 7.1 % Normal 1.7-12.0 [facility] Comment on above: Performed By: #### C BC ####[facility] Yjfcgjblgn[address]76 [place] [address]Dr. Tadeo Smyth NEUT # 3.4 103/ul Normal 1.4-6.5 [facility] Comment on above: Performed By: #### C BC ####[facility] Tgxcbjggcx9974 [place] [address]Dr. Tadeo Smyth Neutrophils/100 WBC (Bld) 61.5 % Normal 43.0-75.0 [facility] Comment on above: Performed By: #### C BC ####[facility] Ufmcswrpnu2633 [place] [address]Dr. Tadeo Smyth Platelet mean volume (Bld) [Entitic vol] 8.8 fL Critically low 9.5-13.5 [facility] Comment on above: Performed By: #### C BC ####[facility] Pxrvevexev0844 [place] [address]Dr. Tadeo Smyth PLT 324 103/ul Normal 150-450 [facility] Comment on above: Performed By: #### C BC ####[facility] [address] [place] [address]Dr. Tadeo Smyth RBC 4.12 106/ul Critically low 4.20-5.40 [facility] Comment on above: Performed By: #### C BC ####[facility] Pkpuxyyudh[address] [place] [address]Dr. Tadeo Smyth WBC 5.5 103/ul Normal 4.0-11.0 [facility] Comment on above: Performed By: #### C BC ####[facility] Qmphdztmhs63[address] [place] [address]DrNeo Smyth PROF 14(COMP METB)on 022 Albumin [Mass/Vol] 3.1 g/dL Critically low 3.4-5.0 [facility] [place] Comment on above: Performed By: #### C MP ####[facility] Hlzywndttq6[address] [place] [address]Dr. Tadeo Haja Albumin/Globulin [Mass ratio] 0.9 {ratio} Normal [facility] Comment on above: Performed By: #### C MP ####[facility] Mfimzjyode[address] [place], [place] [address]Dr. Tadeo Smyth ALP [Catalytic activity/Vol] 119 U/L Critically high 46-116 [facility] Comment on above: Performed By: #### C MP ####[facility] Zfefuhexfu36[address] [place], [place] [address]Dr. Tadeo Smyth ALT [Catalytic activity/Vol] 17 U/L Normal 14-59 [facility] Comment on above: Performed By: #### C MP ####[facility] Oqyrxzvmoz18[address] [place], [place] [address]Dr. Tadeo Smyth Anion gap [Moles/Vol] 12.0 mmol/L Normal [facility] Comment on above: Performed By: #### C MP ####[facility] Yvplkhggzy35[address] [place], [place] [address]Dr. Tadeo Smyth AST [Catalytic activity/Vol] 16 U/L Normal 15-37 [facility] Comment on above: Performed By: #### C MP ####[facility] Zubjxkfyuj99[address] [place], [place] [address]Dr. Tadeo Smyth Bilirubin [Mass/Vol] 0.4 mg/dL Normal 0.2-1.0 [facility] Comment on above: Performed By: #### C MP ####[facility] Ypqhfhflxg05[address] [place], [place] [address]Dr. Tadeo Smyth Calcium [Mass/Vol] 8.9 mg/dL Normal 8.5-10.1 [facility] Comment on above: Performed By: #### C MP ####[facility] Vxdneuftwb058[address] [place], [place] [address]Dr. Tadeo Smyth Chloride [Moles/Vol] 107 mmol/L Normal 98-107 [facility] Comment on above: Performed By: #### C MP ####[facility] Xmimivtmoi265[address] [place], [place] [address]Dr. Tadeo Smyth CO2 [Moles/Vol] 26.9 mmol/L Normal 21.0-32.0 [facility] Comment on above: Performed By: #### C MP ####[facility] Kpponpmuiu[address] [place] [address]Dr. Tadeo Smyth Creatinine [Mass/Vol] 0.82 mg/dL Normal 0.55-1.02 [facility] Comment on above: Performed By: #### C MP ####[facility] Rxdwyfuvtw4[address] [place] [address]Dr. Tadeo Smyth EGFR-AF SRI LANKAN >60 Normal >=60 [facility] Comment on above: Performed By: #### C MP ####[facility] Kuohmuopha[address] [place] [address]Dr. Tadeo Haja EGFR-NON AF SRI LANKAN >60 Normal >=60 [facility] Comment on above: Performed By: #### C MP ####[facility] Kfnotugzjc9734[address] [place], [place] [address]Dr. Tadeo Haja Globulin (S) [Mass/Vol] 3.5 g/dL Normal [facility] Comment on above: Performed By: #### C MP ####[facility] Ywjysdeqqz2935[address] [place], [place] [address]Dr. Tadeo Haja Glucose [Mass/Vol] 104 mg/dL Normal 74-106 [facility] Comment on above: Performed By: #### C MP ####[facility] Obecgdurpq1067[address] [place], [place] [address]Dr. Tadeo Haja Potassium [Moles/Vol] 3.9 mmol/L Normal 3.5-5.1 [facility] Comment on above: Performed By: #### C MP ####[facility] Hqqmyvrhoo5[address] [place], [place] [address]Dr. Tadeo Haja Protein [Mass/Vol] 6.6 g/dL Normal 6.4-8.2 [facility] Comment on above: Performed By: #### C MP ####[facility] Qhgxbdmhey480[address] [place], [place] [address]Dr. Tadeo Haja Sodium [Moles/Vol] 142 mmol/L Normal 136-145 [facility] Comment on above: Performed By: #### C MP ####[facility] L[address]bmcjdamb[address] [place] [address]Dr. Tadeo Haja Urea nitrogen [Mass/Vol] 5.0 mg/dL Critically low 7.0-18.0 [facility] Comment on above: Performed By: #### C MP ####[facility] Rxgrcpgdgc0975[address] [place], [place] [address]Dr. Tadeo Smyth Urea nitrogen/Creatinine [Mass ratio] 6.1 mg/mg Normal [facility] Comment on above: Performed By: #### C MP ####[facility] Fldenhncue176[address] [place], [place] [address]Dr. Margotnicole Smyth CBC AUTO DIFFon 03-29-2022 BASO # 0.0 103/ul Normal 0.0-0.1 [facility] Comment on above: Performed By: #### C BC ####[facility] Mqoructvee1148[address] [place], [place] [address]Dr. Tadeo Smyth Basophils/100 WBC (Bld) 0.4 % Normal 0.2-2.0 [facility] Comment on above: Performed By: #### C BC ####[facility] Ypgzdirjxu5784[address] [place], [place] [address]Dr. Margotnicole Smyth EO # 0.2 103/ul Normal 0.0-0.7 [facility] Comment on above: Performed By: #### C BC ####[facility] Kepydagbcn657[address] [place], [place] [address]Dr. Tadeo Smyth Eosinophils/100 WBC (Bld) 4.3 % Normal 0.9-7.0 [facility] Comment on above: Performed By: #### C BC ####[facility] Qakgzbflrx113[address] [place], [place] [address]Dr. Margotnicole Smyth Erythrocyte distribution width (RBC) [Ratio] 12.9 % Normal 11.0-15.0 [facility] Comment on above: Performed By: #### C BC ####[facility] Dcsyfdfedg9[address] [place], [place] [address]Dr. Tadeo Smyth Hematocrit (Bld) [Volume fraction] 33.8 % Critically low 36.0-48.0 [facility] Comment on above: Performed By: #### C BC ####[facility] F[address]udklfrng[address] [place] [address]DrNeo Smyth Hemoglobin (Bld) [Mass/Vol] 11.1 g/dL Critically low 12.0-16.0 [facility] Comment on above: Performed By: #### C BC ####[facility] Asafhebqup9425[address] [place], [place] [address]DrNeo Smyth IG # 0.01 10e3/ul Normal 0.00-0.03 [facility] Comment on above: Performed By: #### C BC ####[facility] Xzhvzqoxfx36[address] [place], [place] [address]DrNeo Smyth IG % 0.2 % Normal 0.0-0.5 [facility] Comment on above: Performed By: #### C BC ####[facility] Lquseghiss6764[address] [place], [place] [address]DrNeo Smyth LYMPH # 1.5 103/ul Normal 1.2-3.8 [facility] Comment on above: Performed By: #### C BC ####[facility] Gmpqwhywms308[address] [place], [place] [address]DrNeo Smyth Lymphocytes/100 WBC (Bld) 29.9 % Normal 20.5-60.0 [facility] Comment on above: Performed By: #### C BC ####[facility] Vsrzxryqha075[address] [place], [place] [address]DrNeo Smyth MANUAL DIFF REQ NO Normal [facility] Comment on above: Performed By: #### C BC ####[facility] Euq[address]vaqdq7[address] [place] [address]DrNeo Smyth MCH (RBC) [Entitic mass] 29.3 pg Normal 26.7-34.0 [facility] Comment on above: Performed By: #### C BC ####[facility] Ifyeuejprn36[address] [place] [address]DrNeo Smyth MCHC (RBC) [Mass/Vol] 32.8 g/dL Normal 29.9-35.2 [facility] Comment on above: Performed By: #### C BC ####[facility] Cepvrpkqzr[address] [place] [address]Dr. Tadeo Haja MCV (RBC) [Entitic vol] 89.2 fL Normal 81.0-99.0 [facility] Comment on above: Performed By: #### C BC ####[facility] Ausgbsevpm8[address] [place] [address]DrNeo Frostnicole Haja MONO # 0.4 103/ul Normal 0.3-0.8 [facility] Comment on above: Performed By: #### C BC ####[facility] Rxyomdyseq20[address] [place] [address]Dr. Tadeo Smyth Monocytes/100 WBC (Bld) 7.8 % Normal 1.7-12.0 [facility] Comment on above: Performed By: #### C BC ####[facility] Wrrzceqkwu65[address] [place], [place] [address]Dr. Margotnicole Haja NEUT # 2.8 103/ul Normal 1.4-6.5 [facility] Comment on above: Performed By: #### C BC ####[facility] Hakfjuhjzz9[address] [place], [place] [address]Dr. Margotnicole Smyth Neutrophils/100 WBC (Bld) 57.4 % Normal 43.0-75.0 [facility] Comment on above: Performed By: #### C BC ####[facility] Chvenlqsdz[address] [place] [address]Dr. Tadeo Smyth Platelet mean volume (Bld) [Entitic vol] 8.9 fL Critically low 9.5-13.5 [facility] Comment on above: Performed By: #### C BC ####[facility] Vezstdbrdb7[address] [place], [place] [address]Dr. Tadeo Smyth PLT 314 103/ul Normal 150-450 [facility] Comment on above: Performed By: #### C BC ####[facility] X[address]dswriry[address] [place] [address]Dr. Tadeo Smyth RBC 3.79 106/ul Critically low 4.20-5.40 [facility] Comment on above: Performed By: #### C BC ####[facility] Nchwoqvfnk6[address] [place] [address]Dr. Tadeo Smyth WBC 4.9 103/ul Normal 4.0-11.0 [facility] Comment on above: Performed By: #### C BC ####[facility] H[address]amvyljwi70[address] [place] [address]DrNeo Smyth PROF 14(COMP METB)on 022 Albumin [Mass/Vol] 2.8 g/dL Critically low 3.4-5.0 [facility] [place] Comment on above: Performed By: #### C MP ####[facility] Yycfttxfka[address] [place] [address]Dr. Tadeo Smyth Albumin/Globulin [Mass ratio] 0.8 {ratio} Normal [facility] Comment on above: Performed By: #### C MP ####[facility] Ykgkjjhacq44[address] [place], [place] [address]Dr. Tadeo Smyth ALP [Catalytic activity/Vol] 117 U/L Critically high 46-116 [facility] Comment on above: Performed By: #### C MP ####[facility] Fdhpgcfcrq7[address] [place] [address]Dr. Tadeo Smyth ALT [Catalytic activity/Vol] 13 U/L Critically low 14-59 [facility] Comment on above: Performed By: #### C MP ####[facility] Byywkbqvsu59[address] [place] [address]Dr. Tadeo Smyth Anion gap [Moles/Vol] 8.7 mmol/L Normal [facility] Comment on above: Performed By: #### C MP ####[facility] Kghvgysazd3019 [place] [address]Dr. Tadeo Smyth AST [Catalytic activity/Vol] 12 U/L Critically low 15-37 [facility] Comment on above: Performed By: #### C MP ####[facility] Kkcjxcutdr8[address] [place] [address]Dr. Tadeo Smyth Bilirubin [Mass/Vol] 0.4 mg/dL Normal 0.2-1.0 [facility] Comment on above: Performed By: #### C MP ####[facility] Mlmdolkczz8167 [place] [address]Dr. Tadeo Smyth Calcium [Mass/Vol] 8.5 mg/dL Normal 8.5-10.1 [facility] Comment on above: Performed By: #### C MP ####[facility] Bnzvltclly39[address] [place] [address]Dr. Tadeo Smyth Chloride [Moles/Vol] 108 mmol/L Critically high 98-107 [facility] Comment on above: Performed By: #### C MP ####[facility] Fkpcwqrknb55[address] [place], [place] [address]Dr. Tadeo Smyth CO2 [Moles/Vol] 28.0 mmol/L Normal 21.0-32.0 [facility] Comment on above: Performed By: #### C MP ####[facility] Fzohxtwclm35[address] [place], [place] [address]Dr. Tadeo Smyth Creatinine [Mass/Vol] 0.74 mg/dL Normal 0.55-1.02 [facility] Comment on above: Performed By: #### C MP ####[facility] Iktfjubcmo59[address] [place], [place] [address]Dr. Tadeo Smyth EGFR-AF SRI LANKAN >60 Normal >=60 [facility] Comment on above: Performed By: #### C MP ####[facility] Arxrdjiqcz0829[address] [place], [place] [address]Dr. Tadeo Smyth EGFR-NON AF SRI LANKAN >60 Normal >=60 [facility] Comment on above: Performed By: #### C MP ####[facility] Mehzinekoz[address] [place] [address]Dr. Tadeo Smyth Globulin (S) [Mass/Vol] 3.4 g/dL Normal [facility] Comment on above: Performed By: #### C MP ####[facility] Nrrhmyqmic5[address] [place] [address]Dr. Tadeo Smyth Glucose [Mass/Vol] 107 mg/dL Critically high 74-106 [facility] Comment on above: Performed By: #### C MP ####[facility] Fyugjcewvr56[address] [place] [address]Dr. Tadeo Smyth Potassium [Moles/Vol] 3.7 mmol/L Normal 3.5-5.1 [facility] Comment on above: Performed By: #### C MP ####[facility] Yxummefvys5421 [place] [address]Dr. Tadeo Smyth Protein [Mass/Vol] 6.2 g/dL Critically low 6.4-8.2 [facility] [place] Comment on above: Performed By: #### C MP ####[facility] Wgzcphgfqu0664[address] [place], [place] [address]Dr. Tadeo Smyth Sodium [Moles/Vol] 141 mmol/L Normal 136-145 [facility] Comment on above: Performed By: #### C MP ####[facility] Wrwmijlqfz8206[address] [place], [place] [address]Dr. Tadeo Smyth Urea nitrogen [Mass/Vol] 7.0 mg/dL Normal 7.0-18.0 [facility] Comment on above: Performed By: #### C MP ####[facility] Cwtomovqcj8532[address] [place], [place] [address]Dr. Tadeo Smyth Urea nitrogen/Creatinine [Mass ratio] 9.5 mg/mg Normal [facility] Comment on above: Performed By: #### C MP ####[facility] Gkhwyeytec8456[address] [place], [place] [address]Dr. Tadeo Smyth XR KUB 1 VIEWon 03-29-2022 XR KUB 1 VIEW Normal [facility] CBC AUTO DIFFon 03-28-2022 BASO # 0.0 103/ul Normal 0.0-0.1 [facility] Comment on above: Performed By: #### C BC ####[facility] Pkrolqrxga2765[address] [place], [place] [address]Dr. Tadeo Smyth Basophils/100 WBC (Bld) 0.7 % Normal 0.2-2.0 [facility] Comment on above: Performed By: #### C BC ####[facility] Smkpjoaclz[address] [place], [place] [address]Dr. Tadeo Smyth EO # 0.2 103/ul Normal 0.0-0.7 [facility] Comment on above: Performed By: #### C BC ####[facility] Jevdzcczxi3[address] [place] [address]Dr. Tadeo Haja Eosinophils/100 WBC (Bld) 3.3 % Normal 0.9-7.0 [facility] Comment on above: Performed By: #### C BC ####[facility] Qfnokdsjhy0002[address] [place], [place] [address]Dr. Tadeo Smyth Erythrocyte distribution width (RBC) [Ratio] 13.2 % Normal 11.0-15.0 [facility] Comment on above: Performed By: #### C BC ####[facility] Ufwetyqyfw1537[address] [place], [place] [address]Dr. Margotnicole Smyth Hematocrit (Bld) [Volume fraction] 34.2 % Critically low 36.0-48.0 [facility] Comment on above: Performed By: #### C BC ####[facility] Iudcvjljkr490[address] [place], [place] [address]Dr. Tadeo Smyth Hemoglobin (Bld) [Mass/Vol] 10.8 g/dL Critically low 12.0-16.0 [facility] Comment on above: Performed By: #### C BC ####[facility] Kylipjrmmf4456[address] [place], [place] [address]Dr. Tadeo Smyth IG # 0.01 10e3/ul Normal 0.00-0.03 [facility] Comment on above: Performed By: #### C BC ####[facility] Udapjeuqfj5486[address] [place], [place] [address]Dr. Tadeo Smyth IG % 0.2 % Normal 0.0-0.5 [facility] Comment on above: Performed By: #### C BC ####[facility] Vnqrzorfhn9611[address] [place], [place] [address]Dr. Tadeo Smyth LYMPH # 1.3 103/ul Normal 1.2-3.8 [facility] Comment on above: Performed By: #### C BC ####[facility] Peycjunbdl932[address] [place], [place] [address]Dr. Tadeo Smyth Lymphocytes/100 WBC (Bld) 28.4 % Normal 20.5-60.0 [facility] Comment on above: Performed By: #### C BC ####[facility] Pxkvisofxo08[address] [place] [address]DrNeo Smyth MANUAL DIFF REQ NO Normal [facility] Comment on above: Performed By: #### C BC ####[facility] Nbuyuvighz0031 [place] [address]DrNeo Smyth MCH (RBC) [Entitic mass] 28.3 pg Normal 26.7-34.0 [facility] Comment on above: Performed By: #### C BC ####[facility] Yjhdzfanqn4416[address] [place], [place] [address]DrNeo Smyth MCHC (RBC) [Mass/Vol] 31.6 g/dL Normal 29.9-35.2 [facility] Comment on above: Performed By: #### C BC ####[facility] Wweblhmnwt7209[address] [place], [place] [address]DrNeo Smyth MCV (RBC) [Entitic vol] 89.5 fL Normal 81.0-99.0 [facility] Comment on above: Performed By: #### C BC ####[facility] Poujlwvqxk601[address] [place], [place] [address]DrNeo Smyth MONO # 0.3 103/ul Normal 0.3-0.8 [facility] Comment on above: Performed By: #### C BC ####[facility] Wtzakrfamx833[address] [place], [place] [address]DrNeo Smyth Monocytes/100 WBC (Bld) 5.5 % Normal 1.7-12.0 [facility] Comment on above: Performed By: #### C BC ####[facility] Ddxdokycjk173[address] [place], [place] [address]DrNeo Smyth NEUT # 2.8 103/ul Normal 1.4-6.5 [facility] Comment on above: Performed By: #### C BC ####[facility] Gwybzfwvmr3301[address] [place], [place] [address]Dr. Tadeo Smyth Neutrophils/100 WBC (Bld) 61.9 % Normal 43.0-75.0 [facility] Comment on above: Performed By: #### C BC ####[facility] Lemcnkuamo28[address] [place] [address] Tadeo Haja Platelet mean volume (Bld) [Entitic vol] 9.1 fL Critically low 9.5-13.5 [facility] Comment on above: Performed By: #### C BC ####[facility] Dspzdflcao4043[address] [place], [place] [address]DrNeo Frostnicole Haja PLT 327 103/ul Normal 150-450 [facility] Comment on above: Performed By: #### C BC ####[facility] Kjjpcdkbnk74[address] [place], [place] [address]DrNeo Frostnicole Haja RBC 3.82 106/ul Critically low 4.20-5.40 [facility] Comment on above: Performed By: #### C BC ####[facility] Dnksevrvod3279[address] [place], [place] [address]DrNeo Smyth WBC 4.5 103/ul Normal 4.0-11.0 [facility] Comment on above: Performed By: #### C BC ####[facility] Odzkvsugit8302[address] [place], [place] [address]Dr. Tadeo Smyth POINT OF CARE GLUCOSEon 03-06 Glucose [Mass/Vol] 84 mg/dL Normal 74-106 [facility] Comment on above: Performed By: #### P OCGLUC ####[facility] Zbzmojvepw7182[address] [place], [place] [address]DrNeo Smyth PROF 14(COMP METB)on 022 Albumin [Mass/Vol] 2.9 g/dL Critically low 3.4-5.0 [facility] [place] Comment on above: Performed By: #### C MP ####[facility] Tbnhmvdmov6498[address] [place], [place] [address]DrNeo Smyth Albumin/Globulin [Mass ratio] 0.9 {ratio} Normal [facility] Comment on above: Performed By: #### C MP ####[facility] K[address]ssziobps[address] [place] [address]Dr. Tadeo Smyth ALP [Catalytic activity/Vol] 119 U/L Critically high 46-116 [facility] Comment on above: Performed By: #### C MP ####[facility] Tqtacfagla8513[address] [place], [place] [address]Dr. Tadeo Haja ALT [Catalytic activity/Vol] 15 U/L Normal 14-59 [facility] Comment on above: Performed By: #### C MP ####[facility] Ujapudmthw264[address] [place], [place] [address]Dr. Tadeo Haja Anion gap [Moles/Vol] 7.9 mmol/L Normal [facility] Comment on above: Performed By: #### C MP ####[facility] Nwxijrsbnz4519[address] [place], [place] [address]Dr. Tadeo Haja AST [Catalytic activity/Vol] 11 U/L Critically low 15-37 [facility] Comment on above: Performed By: #### C MP ####[facility] Caaukzbvcr2772[address] [place], [place] [address]Dr. Tadeo Haja Bilirubin [Mass/Vol] 0.4 mg/dL Normal 0.2-1.0 [facility] Comment on above: Performed By: #### C MP ####[facility] Lvbvvxvmvi2917[address] [place], [place] [address]Dr. Margotnicole Smyth Calcium [Mass/Vol] 8.7 mg/dL Normal 8.5-10.1 [facility] Comment on above: Performed By: #### C MP ####[facility] Yvcsokejin4325[address] [place], [place] [address]Dr. Margotnicole Smyth Chloride [Moles/Vol] 109 mmol/L Critically high 98-107 [facility] Comment on above: Performed By: #### C MP ####[facility] Qzddzkrqwr5665[address] [place], [place] [address]Dr. Tadeo Smyth CO2 [Moles/Vol] 27.9 mmol/L Normal 21.0-32.0 [facility] Comment on above: Performed By: #### C MP ####[facility] Lwljpggmve2374[address] [place], [place] [address]Dr. Tadeo Smyth Creatinine [Mass/Vol] 0.75 mg/dL Normal 0.55-1.02 [facility] Comment on above: Performed By: #### C MP ####[facility] Vjhfzpcmez5[address] [place] [address]Dr. Tadeo Smyth EGFR-AF SRI LANKAN >60 Normal >=60 [facility] Comment on above: Performed By: #### C MP ####[facility] Ecsqvnmacj49[address] [place] [address]Dr. Tadeo Smyth EGFR-NON AF SRI LANKAN >60 Normal >=60 [facility] Comment on above: Performed By: #### C MP ####[facility] Bltbwzqara2267[address] [place], [place] [address]Dr. Tadeo Haja Globulin (S) [Mass/Vol] 3.3 g/dL Normal [facility] Comment on above: Performed By: #### C MP ####[facility] Tnyafzuxti9675[address] [place], [place] [address]Dr. Tadeo Haja Glucose [Mass/Vol] 95 mg/dL Normal 74-106 [facility] Comment on above: Performed By: #### C MP ####[facility] Pfldgjyava5074[address] [place], [place] [address]Dr. Tadeo Haja Potassium [Moles/Vol] 3.8 mmol/L Normal 3.5-5.1 [facility] Comment on above: Performed By: #### C MP ####[facility] Fuzewrjxse7[address] [place], [place] [address]Dr. Tadeo Haja Protein [Mass/Vol] 6.2 g/dL Critically low 6.4-8.2 [facility] [place] Comment on above: Performed By: #### C MP ####[facility] Hdtnnzfiqs6845[address] [place], [place] [address]Dr. Tadeo Smyth Sodium [Moles/Vol] 141 mmol/L Normal 136-145 [facility] Comment on above: Performed By: #### C MP ####[facility] Grbjooqaau1356[address] [place], [place] [address]Dr. Tadeo Haja Urea nitrogen [Mass/Vol] 8.0 mg/dL Normal 7.0-18.0 [facility] Comment on above: Performed By: #### C MP ####[facility] Cpnurwbjdz4911[address] [place], [place] [address]Dr. Tadeo Smyth Urea nitrogen/Creatinine [Mass ratio] 10.7 mg/mg Normal [facility] Comment on above: Performed By: #### C MP ####[facility] Tfycujaynx24[address] [place], [place] [address]Dr. Tadeo Smyth UA (CLEAN/CATCH) BARREL INSPECTOR TIGHT/MICRO I F IND.on 03-28-2022 Bilirubin Ql (U) Negative Normal NEGATIVE [facility] Comment on above: Performed By: #### U ACSBLANE ICRO ####[facility] Wgqnhgarhs6099[address] [place], [place] [address]Dr. Tadeo Smyth Clarity (U) SL CLOUDY Abnormal CLEAR [facility] Comment on above: Performed By: #### U ACSBLANE ICRO ####[facility] Bsjsqweids9218[address] [place], [place] [address]Dr. Tadeo Smyth Color (U) LT. YELLOW Normal YELLOW [facility] Comment on above: Performed By: #### U ACSBLANE ICRO ####[facility] Htwzqlnnaq[address] [place], [place] [address]Dr. Tadeo Smyth Glucose Ql (U) Negative Normal NEGATIVE [facility] Comment on above: Performed By: #### U ACSBLANE, UMICRO ####[facility] Ttjgerawih[address] [place], [place] [address]Dr. Tadeo Smyth Hemoglobin Ql (U) TRACE-INTACT Abnormal NEGATIVE [facility] Comment on above: Performed By: #### U ACSBLANE, UMICRO ####[facility] Dlfdsqzaoi32[address] [place], [place] [address]Dr. Tadeo Smyth Ketones Ql (U) TRACE Abnormal NEGATIVE [facility] Comment on above: Performed By: #### U ACSIND, UMICRO ####[facility] Vtmanvkjyg4[address] [place], [place] [address]Dr. Tadeo Smyth LEUKOCYTES Negative Normal NEGATIVE [facility] Comment on above: Performed By: #### U ACSBLANE, UMICRO ####[facility] Uhjtpmkauz64[address] [place] [address]Dr. Tadeo Smyth Nitrite Ql (U) Negative Normal NEGATIVE [facility] Comment on above: Performed By: #### U MARE UMICRO ####[facility] Xwacjxtexg2220 [place] [address]Dr. Tadeo Smyth pH (U) 6.5 [pH] Normal 5-9 [facility] Comment on above: Performed By: #### U MARE UMICRO ####[facility] Qnllfottlk0517 [place] [address]Dr. Tadeo Smyth SPEC GRAVITY 1.015 Normal 1.005-<=1.[address] [place] [address] Comment on above: Performed By: #### U MARE UMICRO ####[facility] Bfowphibeq[address] [place] [address]Dr. Tadeo Smyth UA PROTEIN Negative Normal NEGATIVE/ TRACE [facility] Comment on above: Performed By: #### U MARE UMICRO ####[facility] Mdiwjbyndv[address] [place] [address]Dr. Tadeo Haja UR MICRO IND INDICATED Normal [facility] [facility] Comment on above: Performed By: #### U MARE UMICRO ####[facility] Vtukjvlkwv[address] [place] [address]Dr. Tadeo Haja Urobilinogen Qn (U) 0.2 {Benito'U}/dL Normal 0.2 - 1. 0 [facility] Comment on above: Performed By: #### U MARE UMICRO ####[facility] Kklwwghykv[address] [place] [address]Dr. Tadeo Haja URINE MICROSCOPIC ONLYon BACTERIA MODERATE Abnormal NONE SEEN [facility] Comment on above: Performed By: #### U MARE UMICRO ####[facility] Dcjjedojoj[address] [place] [address]Dr. Margotnicole Smyth Bacteria identified Cx Nom (U) INDICATED Normal [facility] Comment on above: Performed By: #### U MARE UMICRO ####[facility] Epwgifytyp5[address] [place] [address]Dr. Tadeo Smyth CAST NONE SEEN Normal NONE SEEN [facility] Comment on above: Performed By: #### SANDRO CARMICHAELRO ####[facility] Uyoxmdipdz[address] [place] [address]Dr. Margotnicole Smyth Crystals LM Nom (Urine sed) NONE SEEN Normal NONE SEEN [facility] Comment on above: Performed By: #### Rosita GARVEY ICRO ####[facility] Ouyrjuijaf[address] [place] [address]Dr. Tadeo Smyth Epithelial cells LM Ql (Urine sed) RARE Normal NONE SEEN /RARE [facility] Comment on above: Performed By: #### Rosita GARVEY ICRO ####[facility] Cinswluhpc06[address] [place] [address]Dr. Tadeo Smyth MUCOUS NONE SEEN Normal NONE SEEN [facility] Comment on above: Performed By: #### Rosita GARVEY CHINEDURO ####[facility] Saeojnqini[address] [place] [address]Dr. Margotincole Smyth RBC NONE SEEN Abnormal 0-2 [facility] Comment on above: Performed By: #### Rosita GARVEY CHINEDURO ####[facility] Cllvefchen[address] [place], [place] [address]Dr. Margotnicole Smyth WBC 2-5 Abnormal NONE SEEN [facility] Comment on above: Performed By: #### [facility] ####[facility] Mnkfasceuh[address] [place], [place] [address]Dr. Margotnicole Smyth XR ABD FLAT UP_PA Kasey 03-28 XR ABD FLAT UP_PA CH Normal [facility] CBC AUTO DIFFon 03-27-2022 BASO # 0.0 103/ul Normal 0.0-0.1 [facility] Comment on above: Performed By: #### C BC ####[facility] Pxyebgihnt[address] [place], [place] [address]Dr. Tadeo Smyth Basophils/100 WBC (Bld) 0.5 % Normal 0.2-2.0 [facility] Comment on above: Performed By: #### C BC ####[facility] Ilqtjywiia9[address] [place] [address]Dr. Tadeo Smyth EO # 0.2 103/ul Normal 0.0-0.7 [facility] Comment on above: Performed By: #### C BC ####[facility] Kawaemkwuu[address] [place] [address]Dr. Tadeo Smyth Eosinophils/100 WBC (Bld) 3.2 % Normal 0.9-7.0 [facility] Comment on above: Performed By: #### C BC ####[facility] Qhjncammlf[address] [place], [place] [address]Dr. Tadeo Smyth Erythrocyte distribution width (RBC) [Ratio] 13.1 % Normal 11.0-15.0 [facility] Comment on above: Performed By: #### C BC ####[facility] Ssggtjyabs34[address] [place], [place] [address]Dr. Tadeo Smyth Hematocrit (Bld) [Volume fraction] 34.8 % Critically low 36.0-48.0 [facility] Comment on above: Performed By: #### C BC ####[facility] Wzbgszvnop8[address] [place], [place] [address]Dr. Tadeo Smyth Hemoglobin (Bld) [Mass/Vol] 11.3 g/dL Critically low 12.0-16.0 [facility] Comment on above: Performed By: #### C BC ####[facility] Ckxlqgrmqa[address] [place], [place] [address]Dr. Tadeo Smyth IG # 0.01 10e3/ul Normal 0.00-0.03 [facility] Comment on above: Performed By: #### C BC ####[facility] Azszuuguor[address] [place], [place] [address]Dr. Tadeo Smyth IG % 0.2 % Normal 0.0-0.5 [facility] Comment on above: Performed By: #### C BC ####[facility] Dcplrefeph[address] [place], [place] [address]Dr. Tadeo Smyth LYMPH # 1.6 103/ul Normal 1.2-3.8 [facility] Comment on above: Performed By: #### C BC ####[facility] Qoopisesux79[address] [place] [address]Dr. Tadeo Smyth Lymphocytes/100 WBC (Bld) 29.1 % Normal 20.5-60.0 [facility] Comment on above: Performed By: #### C BC ####[facility] Rghlmlkpsf07[address] [place] [address]Dr. Tadeo Haja MANUAL DIFF REQ NO Normal [facility] Comment on above: Performed By: #### C BC ####[facility] Rxdgezoqjh[address] [place], [place] [id number]. Tadeo Haja MCH (RBC) [Entitic mass] 29.1 pg Normal 26.7-34.0 [facility] Comment on above: Performed By: #### C BC ####[facility] Cdckxugmhy67[address] [place], [place] [address]Dr. Tadeo Haja MCHC (RBC) [Mass/Vol] 32.5 g/dL Normal 29.9-35.2 [facility] Comment on above: Performed By: #### C BC ####[facility] Zaaegbxoml3918[address] [place], [place] [address]Dr. Tadeo Haja MCV (RBC) [Entitic vol] 89.7 fL Normal 81.0-99.0 [facility] Comment on above: Performed By: #### C BC ####[facility] Sklegxppud0646[address] [place], [place] [address]Dr. Tadeo Haja MONO # 0.3 103/ul Normal 0.3-0.8 [facility] Comment on above: Performed By: #### C BC ####[facility] Nycrhkucgg7972[address] [place], [place] [address]Dr. Tadeo Haja Monocytes/100 WBC (Bld) 5.7 % Normal 1.7-12.0 [facility] Comment on above: Performed By: #### C BC ####[facility] Kywbprqpyz022[address] [place], [place] [address]Dr. Tadeo Smyth NEUT # 3.5 103/ul Normal 1.4-6.5 [facility] Comment on above: Performed By: #### C BC ####[facility] Hcmrqzvbvs9397 [place], [place] [address]Pr. Tadeo Smyth Neutrophils/100 WBC (Bld) 61.3 % Normal 43.0-75.0 [facility] Comment on above: Performed By: #### C BC ####[facility] Jeaoodfrhg3567 [place], [place] [address]Sy. Tadeo Smyth Platelet mean volume (Bld) [Entitic vol] 9.1 fL Critically low 9.5-13.5 [facility] Comment on above: Performed By: #### C BC ####[facility] Euorowiynx3773 [place], [place] [address]Uo. Tadeo Smyth PLT 355 103/ul Normal 150-450 [facility] Comment on above: Performed By: #### C BC ####[facility] Hlxxjvxvoh49[address] [place] [address]Dr. Tadeo Smyth RBC 3.88 106/ul Critically low 4.20-5.40 [facility] Comment on above: Performed By: #### C BC ####[facility] Pjfqkpqupc6903 [place], [place] [address]Vm. Tadeo Smyth WBC 5.6 103/ul Normal 4.0-11.0 [facility] Comment on above: Performed By: #### C BC ####[facility] Eogbkiciip[address] [place] [id number]. Tadeo Smyth CT ABD/PELV W CONon 03-27-20 CT ABD/PELV W CON Normal [facility] CT ABD/PELVIS WO CONon 03-27 CT ABD/PELVIS WO CON Normal [facility]on 03-06 SARS-CoV-2 (COVID-19) RNA CHEN+probe Ql (Unsp spec) Not detected Normal NOT DETECTED [facility] Comment on above: Result Comment: When [...] for this test is supported by the [place] of Health and Human Service's declaration that [...] be used). Performed By: #### C VDTB ####[facility] Whoblkwgie4[address] [place], [place] [address]Dr. Tadeo Smyth ER URINE PROFILEon 2 Bilirubin Ql (U) Negative Normal NEGATIVE [facility] Comment on above: Performed By: #### E RUR, PREGU ####[facility] Ygersaeuve4324[address] [place], [place] [address]Dr. Tadeo Smyth Clarity (U) CLEAR Normal CLEAR [facility] Comment on above: Performed By: #### E RUR, PREGU ####[facility] Bizlqlwvzn4156[address] [place], [place] [address]Dr. Tadeo Smyth Color (U) LT. YELLOW Normal YELLOW [facility] Comment on above: Performed By: #### E RUR, PREGU ####[facility] Khtjpyztrg87[address] [place], [place] [address]Dr. Tadeo Smyth ERUAHD A micrscopic examina tion will be performed if indicated. Normal [facility] Comment on above: Performed By: #### E RUR, PREGU ####[facility] Kciosnjbda7168[address] [place], [place] [address]Dr. Tadeo Smyth Glucose Ql (U) Negative Normal NEGATIVE [facility] Comment on above: Performed By: #### E RUR, PREGU ####[facility] Scrlgyioxd5254[address] [place], [place] [address]Dr. Tadeo Smyth Hemoglobin Ql (U) SMALL Abnormal NEGATIVE [facility] Comment on above: Performed By: #### E RUR, PREGU ####[facility] Addgsymrrj9367 [place] [address]Dr. Tadeo Smyth Ketones Ql (U) TRACE Abnormal NEGATIVE [facility] Comment on above: Performed By: #### E RUR, PREGU ####[facility] Pavizyyufj6[address] [place], [place] [address]Dr. Tadeo Smtyh LEUKOCYTES Negative Normal NEGATIVE [facility] Comment on above: Performed By: #### Matthew RUR, PREGU ####[facility] Gfbynvnuno8078[address] [place], [place] [address]Dr. Tadeo Smyth Nitrite Ql (U) Negative Normal NEGATIVE [facility] Comment on above: Performed By: #### Matthew RUR, PREGU ####[facility] Nxirykvjnv3822[address] [place], [place] [address]Dr. Tadeo Smyth pH (U) 6.0 [pH] Normal 5-9 [facility] Comment on above: Performed By: #### Matthew BURLESONR, PREGU ####[facility] Gxwyezypfj049[address] [place], [place] [address]Dr. Tadeo Smyth SPEC GRAVITY >=1.030 Abnormal 1.005-<=1.0 25 [facility] Comment on above: Performed By: #### Matthew FRANCISCO, PREGU ####[facility] Fhyefahkqe34[address] [place], [place] [address]Dr. Tadeo Smyth UA PROTEIN Negative Normal NEGATIVE/ TRACE [facility] Comment on above: Performed By: #### Matthew RUR, PREGU ####[facility] Fpnngrtmnw7[address] [place], [place] [address]Dr. Tadeo Smyth UR MICRO IND NOT INDICATED Normal [facility] Comment on above: Performed By: #### Matthew RUR, PREGU ####[facility] Vryoofdeyp7127[address] [place], [place] [address]Dr. Tadeo Smyth Urobilinogen Qn (U) 0.2 {Benito'U}/dL Normal 0.2 - 1. 0 [facility] Comment on above: Performed By: #### Matthew RUR, PREGU ####[facility] Gdnksgqkxz89[address] [place], [place] [address]Dr. Tadeo Smyth LIPASEon 03-27-2022 Lipase [Catalytic activity/Vol] 126.0 U/L Normal 73.0-393.0 [facility] Comment on above: Performed By: #### L IPA, CMP ####[facility] Bghbqpbiec04[address] [place] [address]Dr. Tadeo Smyth URon 03-27-2022 , QUAL Negative Normal NEGATIVE [facility] Comment on above: Performed By: #### E RUR, PREGU ####[facility] Uenhkyquyg8[address] [place] [address]Dr. Tadeo Smyth PROF 14(COMP METB)on 022 Albumin [Mass/Vol] 3.6 g/dL Normal 3.4-5.0 [facility] Comment on above: Performed By: #### L IPA, CMP ####[facility] Efzwakdfio9984[address] [place], [place] [address]Dr. Tadeo Smyth Albumin/Globulin [Mass ratio] 1.1 {ratio} Normal [facility] Comment on above: Performed By: #### L IPA, CMP ####[facility] Qljvfttguq5630 [place] [address]Dr. Tadeo Smyth ALP [Catalytic activity/Vol] 139 U/L Critically high 46-116 [facility] Comment on above: Performed By: #### L IPA, CMP ####[facility] Wnxwczhvjn1426 [place] [address]Dr. Tadeo Smyth ALT [Catalytic activity/Vol] 18 U/L Normal 14-59 [facility] Comment on above: Performed By: #### L IPA, CMP ####[facility] Xejidchsom7792 [place] [address]Dr. Tadeo Smyth Anion gap [Moles/Vol] 10.7 mmol/L Normal [facility] Comment on above: Performed By: #### L IPA, CMP ####[facility] Oqwfbtwdld6738 [place] [address]Dr. Tadeo Smyth AST [Catalytic activity/Vol] 11 U/L Critically low 15-37 [facility] Comment on above: Performed By: #### L IPA, CMP ####[facility] Qqlppxaxte77[address] [place], [place] [address]Dr. Tadeo Smyth Bilirubin [Mass/Vol] 0.2 mg/dL Normal 0.2-1.0 [facility] Comment on above: Performed By: #### L IPA, CMP ####[facility] Hqhbgkpddd774[address] [place], [place] [address]Dr. Tadeo Smyth Calcium [Mass/Vol] 9.0 mg/dL Normal 8.5-10.1 [facility] Comment on above: Performed By: #### L IPA, CMP ####[facility] Ofppxmgjwm8058[address] [place], [place] [address]Dr. Tadeo Smyth Chloride [Moles/Vol] 106 mmol/L Normal 98-107 [facility] Comment on above: Performed By: #### L IPA, CMP ####[facility] Vtvznkqnfp1869[address] [place], [place] [address]Dr. Tadeo Smyth CO2 [Moles/Vol] 26.9 mmol/L Normal 21.0-32.0 [facility] Comment on above: Performed By: #### L IPA, CMP ####[facility] Szeycyhuad[address] [place], [place] [address]Dr. Tadeo Smyth Creatinine [Mass/Vol] 0.84 mg/dL Normal 0.55-1.02 [facility] Comment on above: Performed By: #### L IPA, CMP ####[facility] Vshyvsbxkx2[address] [place], [place] [address]Dr. Tadeo Smyth EGFR-AF SRI LANKAN >60 Normal >=60 [facility] Comment on above: Performed By: #### L IPA, CMP ####[facility] Ijafgvwaag35[address] [place], [place] [address]Dr. Tadeo Smyth EGFR-NON AF SRI LANKAN >60 Normal >=60 [facility] Comment on above: Performed By: #### L IPA, CMP ####[facility] Fdmpdgewhp075[address] [place], [place] [address]Dr. Tadeo Smyth Globulin (S) [Mass/Vol] 3.4 g/dL Normal [facility] Comment on above: Performed By: #### L IPA, CMP ####[facility] Nwvvnvuljl7719 [place] [address]Dr. Tadeo Smyth Glucose [Mass/Vol] 96 mg/dL Normal 74-106 [facility] Comment on above: Performed By: #### L IPA, CMP ####[facility] Aoyrrhbdhb5186 [place] [address]Dr. Tadeo Smyth Potassium [Moles/Vol] 3.6 mmol/L Normal 3.5-5.1 [facility] Comment on above: Performed By: #### L IPA, CMP ####[facility] Qjitsiahdb7[address] [place], [place] [address]Dr. Tadeo Smyth Protein [Mass/Vol] 7.0 g/dL Normal 6.4-8.2 [facility] Comment on above: Performed By: #### L IPA, CMP ####[facility] Zxrtsywdyy35[address] [place], [place] [address]Dr. Margotnicole Smyth Sodium [Moles/Vol] 140 mmol/L Normal 136-145 [facility] Comment on above: Performed By: #### L IPA, CMP ####[facility] Dfqelmbdwj[address] [place], [place] [address]Dr. Tadeo Smyth Urea nitrogen [Mass/Vol] 23.0 mg/dL Critically high 7.0-18.0 [facility] Comment on above: Performed By: #### L IPA, CMP ####[facility] Frympyrudf3054[address] [place], [place] [address]Dr. Margotnicole Haja Urea nitrogen/Creatinine [Mass ratio] 27.4 mg/mg Normal [facility] Comment on above: Performed By: #### L IPA, CMP ####[facility] Mnplzfdatl42[address] [place], [place] [address]Dr. Tadeo Smyth GROUP A STREP CULTUREon S. pyogenes Ag Ql (Unsp spec) Normal [facility] Comment on above: Performed By: #### G RASTCX, SSCRN ####[facility] Lmeggsocoa[address] [place], [place] [address]Dr. Margotnicole Haja AMYLASEon 02-02-2022 Amylase [Catalytic activity/Vol] 37 U/L Normal 25-115 [facility] Comment on above: Performed By: #### C MP, KEITH HALLMAN ####[facility] Iygbtpvxet62[address] [place] [address]Dr. Tadeo Smyth CBC AUTO DIFFon 02-02-2022 BASO # 0.0 103/ul Normal 0.0-0.1 [facility] Comment on above: Performed By: #### C BC ####[facility] Mcvzhxxkbw5249[address] [place], [place] [address]Dr. Tadeo Haja Basophils/100 WBC (Bld) 0.2 % Normal 0.2-2.0 [facility] Comment on above: Performed By: #### C BC ####[facility] Gjfgedoqkv997[address] [place], [place] [address]Dr. Tadeo Smyth EO # 0.0 103/ul Normal 0.0-0.7 [facility] Comment on above: Performed By: #### C BC ####[facility] Bpwythnhbc[address] [place], [place] [address]Dr. Tadeo Smyth Eosinophils/100 WBC (Bld) 0.2 % Critically low 0.9-7.0 [facility] Comment on above: Performed By: #### C BC ####[facility] Pzdsyrblzs[address] [place], [place] [address]Dr. Tadeo Smyth Erythrocyte distribution width (RBC) [Ratio] 13.4 % Normal 11.0-15.0 [facility] Comment on above: Performed By: #### C BC ####[facility] Dqnwueicxn[address] [place], [place] [address]Dr. Tadeo Smyth Hematocrit (Bld) [Volume fraction] 36.8 % Normal 36.0-48.0 [facility] Comment on above: Performed By: #### C BC ####[facility] Tlqlukczga[address] [place], [place] [address]Dr. Tadeo Smyth Hemoglobin (Bld) [Mass/Vol] 11.6 g/dL Critically low 12.0-16.0 [facility] Comment on above: Performed By: #### C BC ####[facility] C[address]ikhbmrh[address] [place] [address]Dr. Tadeo Smyth IG # 0.08 10e3/ul Critically high 0.00-0.03 [facility] Comment on above: Performed By: #### C BC ####[facility] Pxzrxwskgx7813 [place] [address]Dr. Tadeo Smyth IG % 0.6 % Critically high 0.0-0.5 [facility] Comment on above: Performed By: #### C BC ####[facility] Qgqgybyjgv6414 [place] [address]Dr. Tadeo Haja LYMPH # 0.9 103/ul Critically low 1.2-3.8 [facility] Comment on above: Performed By: #### C BC ####[facility] Cfdwauetsq3747 [place] [address]Dr. Tadeo Smyth Lymphocytes/100 WBC (Bld) 6.9 % Critically low 20.5-60.0 [facility] Comment on above: Performed By: #### C BC ####[facility] Ombnbnvzri[address] [place], [place] [address]Dr. Margotnicole Smyth MANUAL DIFF REQ NO Normal [facility] Comment on above: Performed By: #### C BC ####[facility] Ulmxhcvixb4618 [place] [address]Dr. Tadeo Smyth MCH (RBC) [Entitic mass] 28.9 pg Normal 26.7-34.0 [facility] Comment on above: Performed By: #### C BC ####[facility] Cbjkhrjpct3271 [place] [address]Dr. Tadeo Haja MCHC (RBC) [Mass/Vol] 31.5 g/dL Normal 29.9-35.2 [facility] Comment on above: Performed By: #### C BC ####[facility] Rjhxqvsjlp07[address] [place], [place] [address]DrNeo Tadeo Haja MCV (RBC) [Entitic vol] 91.8 fL Normal 81.0-99.0 [facility] Comment on above: Performed By: #### C BC ####[facility] Fvjkceevyx8[address] [place] [address]Dr. Tadeo Smyth MONO # 0.9 103/ul Critically high 0.3-0.8 [facility] Comment on above: Performed By: #### C BC ####[facility] Uxwqgwxepi7346 [place] [address]Dr. Tadeo Smyth Monocytes/100 WBC (Bld) 6.9 % Normal 1.7-12.0 [facility] Comment on above: Performed By: #### C BC ####[facility] Yumibzueye67[address] [place] [address]Dr. Tadeo Smyth NEUT # 11.6 103/ul Critically high 1.4-6.5 [facility] Comment on above: Performed By: #### C BC ####[facility] Kaxsgkxavj4[address] [place] [address]Dr. Tadeo Smyth Neutrophils/100 WBC (Bld) 85.2 % Critically high 43.0-75.0 [facility] Comment on above: Performed By: #### C BC ####[facility] Gnknrgmnrs8744 [place] [address]Dr. Tadeo Smyth Platelet mean volume (Bld) [Entitic vol] 8.9 fL Critically low 9.5-13.5 [facility] Comment on above: Performed By: #### C BC ####[facility] Nqzfpgtpnj1561 [place] [address]Dr. Tadeo Smyth PLT 331 103/ul Normal 150-450 [facility] Comment on above: Performed By: #### C BC ####[facility] Ouisgvwprp15[address] [place] [address]Dr. Tadeo Smyth RBC 4.01 106/ul Critically low 4.20-5.40 [facility] Comment on above: Performed By: #### C BC ####[facility] Yzyafjlbap60[address] [place] [address]Dr. Tadeo Smyth WBC 13.7 103/ul Critically high 4.0-11.0 [facility] Comment on above: Performed By: #### C BC ####[facility] Ilrsztaswa7[address] [place], [place] [address]Dr. Tadeo Smyth Covid-19 PCR (CVDTBH)on 01-05 SARS-CoV-2 (COVID-19) RNA CHEN+probe Ql (Unsp spec) Not detected Normal NOT DETECTED [facility] Comment on above: Result Comment: When [...] for this test is supported by the [employer] of Health and Human Service's declaration that [...] be used). Performed By: #### C VDTBH ####[facility] Dsculeojqa[address] [place] [address]Dr. Tadeo [facility] LIPASEon 02-02-2022 Lipase [Catalytic activity/Vol] 33.0 U/L Critically low 73.0-393.0 [facility] Comment on above: Performed By: #### C VIJI GARCIA LIPA ####[facility] Qvcisfmxcq3370 [place] [address]Dr. Tadeo Smyth MONOon 02-02-2022 Monocytes (Bld) [#/Vol] Negative Normal NEGATIVE [facility] Comment on above: Performed By: #### M JESSICA ####[facility] Yszvwxhhar[address] [place], [place] [address]Dr. Tadeo Smyth PROF 14(COMP METB)on 022 Albumin [Mass/Vol] 3.1 g/dL Critically low 3.4-5.0 [facility] [place] Comment on above: Performed By: #### C VIJI GARCIA, LIPA ####[facility] Cgdtiflbgz2446 [place] [address]Dr. Tadeo Smyth Albumin/Globulin [Mass ratio] 0.9 {ratio} Normal [facility] Comment on above: Performed By: #### C MP, VIJI, LIPA ####[facility] Psghryrkcn[address] [place] [address]Dr. Tadeo Haja ALP [Catalytic activity/Vol] 131 U/L Critically high 46-116 [facility] Comment on above: Performed By: #### C MP, VIJI, LIPA ####[facility] Nfuzvqeofa0575 [place] [address]Dr. Margotnicole Smyth ALT [Catalytic activity/Vol] 25 U/L Normal 14-59 [facility] Comment on above: Performed By: #### C MP, VIJI, LIPA ####[facility] Tfemrndweq1552 [place] [address]Dr. Tadeo Smyth Anion gap [Moles/Vol] 10.0 mmol/L Normal [facility] Comment on above: Performed By: #### C MP, VIJI, LIPA ####[facility] Ywporjicai4198 [place] [address]Dr. Margotnicole Smyth AST [Catalytic activity/Vol] 19 U/L Normal 15-37 [facility] Comment on above: Performed By: #### C MP, VIJI, LIPA ####[facility] Myydpotize0377 [place] [address]Dr. Tadeo Smyth Bilirubin [Mass/Vol] 0.6 mg/dL Normal 0.2-1.0 [facility] Comment on above: Performed By: #### C MP, VIJI, LIPA ####[facility] Jvhjyaziog1532 [place] [address]Dr. Tadeo Smyth Calcium [Mass/Vol] 8.2 mg/dL Critically low 8.5-10.1 [facility] Comment on above: Performed By: #### C MP, VIJI, LIPA ####[facility] Wuairqqbnq[address] [place], [place] [address]Dr. Tadeo Smyth Chloride [Moles/Vol] 106 mmol/L Normal 98-107 [facility] Comment on above: Performed By: #### C MP, VIJI, LIPA ####[facility] Nxnrdgdsxz6002 [place] [address]Dr. Tadeo Haja CO2 [Moles/Vol] 25.5 mmol/L Normal 21.0-32.0 [facility] Comment on above: Performed By: #### C MP, VIJI, LIPA ####[facility] Sorhduzyjd[address] [place] [address]Dr. Tadeo Haja Creatinine [Mass/Vol] 0.78 mg/dL Normal 0.55-1.02 [facility] Comment on above: Performed By: #### C MP, VIJI, LIPA ####[facility] Rchnkklwug[address] [place] [address]Dr. Tadeo Haja EGFR-AF SRI LANKAN >60 Normal >=60 [facility] Comment on above: Performed By: #### C MP, VIJI, LIPA ####[facility] Hpayzuwhmg7485 [place] [address]Dr. Tadeo Haja EGFR-NON AF SRI LANKAN >60 Normal >=60 [facility] Comment on above: Performed By: #### C MP, VIJI, LIPA ####[facility] Kguobgceek[address] [place] [address]Dr. Tadeo Smyth Globulin (S) [Mass/Vol] 3.6 g/dL Normal [facility] Comment on above: Performed By: #### C MP, VIJI, LIPA ####[facility] Fojmrsxfir8[address] [place] [address]Dr. Margotnicole Haja Glucose [Mass/Vol] 110 mg/dL Critically high 74-106 [facility] Comment on above: Performed By: #### C MP, VIJI, LIPA ####[facility] Uhoeuscugr9[address] [place] [address]Dr. Tadeo Smyth Potassium [Moles/Vol] 3.5 mmol/L Normal 3.5-5.1 [facility] Comment on above: Performed By: #### C MP, VIJI, LIPA ####[facility] Xchlbvzrlb3750 [place] [address]Dr. Tadeo Smyth Protein [Mass/Vol] 6.7 g/dL Normal 6.4-8.2 [facility] Comment on above: Performed By: #### C VIJI GARCIA LIPA ####[facility] Rxgkgrrvdc8484 [place] [address]Dr. Tadeo Smyth Sodium [Moles/Vol] 138 mmol/L Normal 136-145 [facility] Comment on above: Performed By: #### C VIJI GARCIA, LIPA ####[facility] Ytjwnfmwia1117 [place] [address]Dr. Tadeo Smyth Urea nitrogen [Mass/Vol] 11.0 mg/dL Normal 7.0-18.0 [facility] Comment on above: Performed By: #### C VIJI GARCIA, LIPA ####[facility] Pznrxhhspf08[address] [place] [address]Dr. Tadeo Smyth Urea nitrogen/Creatinine [Mass ratio] 14.1 mg/mg Normal [facility] Comment on above: Performed By: #### C VIJI GARCIA, LIPA ####[facility] [address] [place] [address]Dr. Tadeo Smyth STREPT SCREENon 02-02-2022 STREP SCREEN A Negative Normal NEGATIVE [facility] Comment on above: Performed By: #### G RASTCX, SSCRN ####[facility] [address] [place] [address]Dr. Tadeo Smyth BASIC METABOLIC PANELon 08-05 Calcium [Mass/Vol] 8.4 mg/dL Low 8.6-10.3 [facility] Comment on above: Order Comment: No: D o not add to previous draw Performed By: #### 3 2501, 42333 #### [facility] [address] [facility] [place] [address], [facility] Chloride [Moles/Vol] 108 mmol/L High 98-107 [facility] Comment on above: Order Comment: No: D o not add to previous draw Performed By: #### 3 2681, 74266 #### [facility] [address] [place] [address], [place] CO2 [Moles/Vol] 26 mmol/L Normal 21-31 [facility] Comment on above: Order Comment: No: D o not add to previous draw Performed By: #### 3 497, 59825 #### [facility] [address] [place] [address], [place] Creatinine [Mass/Vol] 0.79 mg/dL Normal 0.60-1.20 [facility] Comment on above: Order Comment: No: D o not add to previous draw Performed By: #### 3 693, 30992 #### [facility] [address] [place] [address], [place] GFR/1.73 sq M predicted among blacks MDRD (S/P/Bld) [Vol rate/Area] mL/min/{1.73_m2} Normal >60 [facility] Comment on above: Order Comment: No: D o not add to previous draw Performed By: #### 3 084, 52734 #### [facility] [address] [place] [address], [place] GFR/1.73 sq M predicted among non-blacks MDRD (S/P/Bld) [Vol rate/Area] mL/min/{1.73_m2} Normal >60 [facility] Comment on above: Order Comment: No: D o not add to previous draw Performed By: #### 3 843, 55112 #### [facility] [address] [place] [address], [place] Glucose [Mass/Vol] 98 mg/dL Normal 70-100 [facility] Comment on above: Order Comment: No: D o not add to previous draw Performed By: #### 3 , 39614 #### [facility] [address] [place] [address], [place] Potassium [Moles/Vol] 3.5 mmol/L Normal 3.5-5.1 [facility] Comment on above: Order Comment: No: D o not add to previous draw Performed By: #### 3 6901, 51459 #### [facility] [address] Sodium [Moles/Vol] 139 mmol/L Normal 136-145 [facility] Comment on above: Order Comment: No: D o not add to previous draw Performed By: #### 3 690, 20320 #### [facility] [address] Urea nitrogen [Mass/Vol] 11 mg/dL Normal 7-25 [facility] Comment on above: Order Comment: No: D o not add to previous draw Performed By: #### 3 6901, 87116 #### [facility] [address] [facility] [address] BLOOD STOOL GUAIACon 019 BLD STOOL GUAIAC Negative Normal NEGATIVE [facility] Comment on above: Order Comment: No: D o not add to previous draw Performed By: #### 3 6901, 22445 #### [facility] [address] [facility] [address] MAGNESIUM BLOODon 08-16-2019 Magnesium [Mass/Vol] 2.0 mg/dL Normal 1.9-2.7 [facility] Comment on above: Order Comment: No: D o not add to previous draw Performed By: #### 3 6901, 45141 #### [facility] [address] [facility]. [address] *URINE CULTUREon 08-15-2019 Bacteria identified Cx Nom (U) Clinical Report: (D) Specimen/Source: URINE/MIDSTREAM Collected: 08/15/2019 20:40 Status: Final Last Updated: 08/17/2019 08:05 ISO (Final) Escherichia coli >100,000 Cfu/Ml ISOLATE: Escherichia coli RHONDA (mcg/ml) AMP./SULBAC (AMS) 16/8 Intermediate AMPICILLIN (AM) >16 Resistant AZTREONAM (AZM) <=1 Susceptible CEFAZOLIN (CZ) 2 Susceptible CEFTRIAXONE (SPORTS BOOKMAKER) <=0.5 Susceptible CIPROFLOXACIN (CIP) >2 Resistant ESBL (-/+) (ESBL) Negative GENTAMICIN (GM) <=1 Susceptible NITROFURANTOIN (FT) <=16 Susceptible PIP/TAZO (TZP) 4/4 Susceptible TOBRAMYCIN (TOB) 1 Susceptible TRIMETH/SULFA (SXT) >2/38 Resistant Normal [facility] Comment on above: Performed By: #### 3 6901, 73073 #### [facility] [address] [place] [address], [facility] BASIC METABOLIC PANELon 12- Calcium [Mass/Vol] 8.8 mg/dL Normal 8.6-10.3 [facility] Comment on above: Order Comment: No: D o not add to previous draw Performed By: #### 0 0071, 27376, 30157 #### [facility] [address] [facility] [place] [address], [facility] Chloride [Moles/Vol] 107 mmol/L Normal 98-107 [facility] Comment on above: Order Comment: No: D o not add to previous draw Performed By: #### 0 0071, 61092, 31302 #### [facility] [address] [place] [address], [facility] CO2 [Moles/Vol] 27 mmol/L Normal 21-31 [facility] Comment on above: Order Comment: No: D o not add to previous draw Performed By: #### 0 0071, 11415, 18732 #### [facility] [address] [place] [address], [facility] Creatinine [Mass/Vol] 0.99 mg/dL Normal 0.60-1.20 [facility] Comment on above: Order Comment: No: D o not add to previous draw Performed By: #### 0 0071, 24103, 33525 #### [facility] [address] [place] [address], [place] GFR/1.73 sq M predicted among blacks MDRD (S/P/Bld) [Vol rate/Area] mL/min/{1.73_m2} Normal >60 [facility] Comment on above: Order Comment: No: D o not add to previous draw Performed By: #### 0 0071, 04426, 81515 #### [facility] [address] [place] [address], [place] GFR/1.73 sq M predicted among non-blacks MDRD (S/P/Bld) [Vol rate/Area] 59 ml/min/1.73sq m Abnormal >60 [facility] Comment on above: Order Comment: No: D o not add to previous draw Performed By: #### 0 0071, 14944, 88290 #### [facility] [address] [place] [address], [place] Glucose [Mass/Vol] 100 mg/dL Normal 70-100 [facility] Comment on above: Order Comment: No: D o not add to previous draw Performed By: #### 0 0071, 10169, 60505 #### [facility] [address] [place] [address], [place] Potassium [Moles/Vol] 3.6 mmol/L Normal 3.5-5.1 [facility] Comment on above: Order Comment: No: D o not add to previous draw Performed By: #### 0 0071, 95085, 30255 #### [facility] [address] [place] [address], [place] Sodium [Moles/Vol] 140 mmol/L Normal 136-145 [facility] Comment on above: Order Comment: No: D o not add to previous draw Performed By: #### 0 0071, 41602, 39217 #### [facility] [address] [place] [address], [place] Urea nitrogen [Mass/Vol] 9 mg/dL Normal 7-25 [facility] Comment on above: Order Comment: No: D o not add to previous draw Performed By: #### 0 0071, 48099, 35314 #### [facility] [address] [place] [address], [facility] LACTATE BLOODon 08-15-2019 Lactate [Moles/Vol] 0.8 mmol/L Normal 0.5-2.2 [facility] Comment on above: Order Comment: Yes: Add to Previous draw if able Performed By: #### 1 0054 #### [facility] [address] [place] [address], [facility] LMWH HEPARIN ASSAYon 019 LOW MOLECULAR WEIGHT HEPARIN 0.32 IU/mL Low 0.60-1.20 [facility] Comment on above: Order Comment: (draw [...] and LMWH. Performed By: #### 3 6901, 05255 #### [facility] [address] [place] [address], [facility] MAGNESIUM BLOODon 08-15-2019 Magnesium [Mass/Vol] 1.7 mg/dL Low 1.9-2.7 [facility] Comment on above: Order Comment: No: D o not add to previous draw Performed By: #### 0 0071, 59265, 06224 #### [facility] [address] [place] [address], [facility] PHOSPHORUS BLOODon 9 Phosphate [Mass/Vol] 4.1 mg/dL Normal 2.5-5.0 [facility] Comment on above: Order Comment: No: D o not add to previous draw Performed By: #### 0 0071, 45965, 08495 #### [address] UGI WITH SMALL BOWELon 08-15 UGI WITH SMALL BOWEL [facility] Department of Radiology [address] [place] [id number] Patient Name: CONSTANTINO CARDOSO : 1970 Sex: F Age: Race: White Pt. Location: [id number] Patient Status: O Ordered Date: 08/15/2019 10:45:00 [...] ischemia. Electronically signed by:Orestes Condon. Transcribed by: [email or web address], User Resident: Electronically Signed by: ORESTES CONDON @ 08/15/2019 04:13 PM Normal [facility] Comment on above: Order Comment: R/O O bstruction URINALYSIS REFLEXon 08-15-20 19 Appearance (U) SL CLOUDY Abnormal CLEAR [facility] Comment on above: Order Comment: No: D o not add to previous drawCriteria for reflexing a culture was met. Urine Culture and sensitivitywill be performed. Performed By: #### 3 9471, 37366 #### [facility] [address] [facility] [place] [address], [facility] Bilirubin [Mass/Vol] Negative Normal NEGATIVE [facility] Comment on above: Order Comment: No: D o not add to previous drawCriteria for reflexing a culture was met. Urine Culture and sensitivitywill be performed. Performed By: #### 3 2041, 54302 #### [facility] [address] [place] [address], [place] BLOOD SMALL Abnormal NEGATIVE [facility] Comment on above: Order Comment: No: D o not add to previous drawCriteria for reflexing a culture was met. Urine Culture and sensitivitywill be performed. Performed By: #### 3 2291, 87427 #### [facility] [address] [place] [address], [place] Color (U) YELLOW Normal YELLOW [facility] Comment on above: Order Comment: No: D o not add to previous drawCriteria for reflexing a culture was met. Urine Culture and sensitivitywill be performed. Performed By: #### 3 6901, 09283 #### [facility] [address] [place] [address], [facility] EPIS OCC Normal FEW,OCC,NON E SEEN [facility] Comment on above: Order Comment: No: D o not add to previous drawCriteria for reflexing a culture was met. Urine Culture and sensitivitywill be performed. Performed By: #### 3 6901, 61907 #### [facility] [address] [place] [address], [facility] Glucose [Mass/Vol] Negative Normal NEGATIVE [facility] Comment on above: Order Comment: No: D o not add to previous drawCriteria for reflexing a culture was met. Urine Culture and sensitivitywill be performed. Performed By: #### 3 7721, 71273 #### [facility] [address] [place] [address], [place] HYALINE CASTS 6-10 Abnormal NONE SEEN [facility] Comment on above: Order Comment: No: D o not add to previous drawCriteria for reflexing a culture was met. Urine Culture and sensitivitywill be performed. Performed By: #### 3 4221, 81603 #### [facility] [address] [place] [address], [facility] KETONE Negative Normal NEGATIVE [facility] Comment on above: Order Comment: No: D o not add to previous drawCriteria for reflexing a culture was met. Urine Culture and sensitivitywill be performed. Performed By: #### 3 6901, 57394 #### [facility] [address] [place] [address], [place] LEUK JONN MODERATE Abnormal NEGATIVE [facility] Comment on above: Order Comment: No: D o not add to previous drawCriteria for reflexing a culture was met. Urine Culture and sensitivitywill be performed. Performed By: #### 3 690, 28737 #### [facility] [address] [place] [address], [facility] MUCUS THREADS FEW Abnormal NONE SEEN [facility] Comment on above: Order Comment: No: D o not add to previous drawCriteria for reflexing a culture was met. Urine Culture and sensitivitywill be performed. Performed By: #### 3 690, 53425 #### [facility] [address] [place] [address], [place] Nitrite Ql (U) Negative Normal NEGATIVE [facility] Comment on above: Order Comment: No: D o not add to previous drawCriteria for reflexing a culture was met. Urine Culture and sensitivitywill be performed. Performed By: #### 3 690, 85110 #### [facility] [address] [place] [address], [facility] pH (Bld) 5.0 Normal 5.0-8.0 [facility] Comment on above: Order Comment: No: D o not add to previous drawCriteria for reflexing a culture was met. Urine Culture and sensitivitywill be performed. Performed By: #### 3 064, 52328 #### [facility] [address] [place] [address], [facility] Protein (U) [Mass/Vol] Negative Normal NEGATIVE [facility] Comment on above: Order Comment: No: D o not add to previous drawCriteria for reflexing a culture was met. Urine Culture and sensitivitywill be performed. Performed By: #### 3 6901, 50483 #### [facility] [address] [place] [address], [facility] RBC (U) [#/Vol] 6-10 Abnormal NONE SEEN [facility] Comment on above: Order Comment: No: D o not add to previous drawCriteria for reflexing a culture was met. Urine Culture and sensitivitywill be performed. Performed By: #### 3 5061, 05314 #### [facility] [address] [facility] [place] [address] SPEC GRAV 1.025 High 1.015-1.020 [facility] Comment on above: Order Comment: No: D o not add to previous drawCriteria for reflexing a culture was met. Urine Culture and sensitivitywill be performed. Performed By: #### 3 6901, 47476 #### [facility] [address] [facility] [place] [address], [facility] WBC UA 51-100 Abnormal NONE SEEN [facility] Comment on above: Order Comment: No: D o not add to previous drawCriteria for reflexing a culture was met. Urine Culture and sensitivitywill be performed. Performed By: #### 3 6901, 45030 #### [facility] [address] CBC COMPLETE BLOOD COUNTon 10-15-2018 Erythrocyte distribution width (RBC) [Ratio] 12.7 % Normal 11.5-15.0 [facility] Comment on above: Order Comment: No: D o not add to previous draw Performed By: #### 5 0608 #### [facility] [address] [facility] [address] Hematocrit (Bld) [Volume fraction] 31.2 % Low 36.0-45.0 [facility] Comment on above: Order Comment: No: D o not add to previous draw Performed By: #### 5 0608 #### [facility] [address] [facility] [place] [address], [facility] Hemoglobin (Bld) [Mass/Vol] 9.8 g/dL Low 12.0-15.0 [facility] Comment on above: Order Comment: No: D o not add to previous draw Performed By: #### 5 0608 #### [facility] [address] [place] [address], [facility] MCH (RBC) [Entitic mass] 29.1 pg Normal 27.0-33.0 [facility] Comment on above: Order Comment: No: D o not add to previous draw Performed By: #### 5 0608 #### [facility] [address] [place] [address], [facility] MCHC (RBC) [Mass/Vol] 31.4 g/dL Low 32.0-35.0 [facility] Comment on above: Order Comment: No: D o not add to previous draw Performed By: #### 5 0608 #### [facility] [address] [place] [address], [facility] MCV (RBC) [Entitic vol] 92.6 fL Normal 82.0-98.0 [facility] Comment on above: Order Comment: No: D o not add to previous draw Performed By: #### 5 0608 #### [facility] [address] [place] [address], [facility] Nucleated RBC/100 WBC (Bld) [Ratio] 0 % Normal 0-0 [facility] Comment on above: Order Comment: No: D o not add to previous draw Performed By: #### 5 0608 #### [facility] [address] [facility] [place] [address], [facility] PLAT CNT 340 10*3/uL Normal 150-400 [facility] Comment on above: Order Comment: No: D o not add to previous draw Performed By: #### 5 0608 #### [facility] [address] [place] [address], [facility] RBC (Bld) [#/Vol] 3.37 10*6/uL Low 3.80-5.00 [facility] Comment on above: Order Comment: No: D o not add to previous draw Performed By: #### 5 0608 #### [facility] [address] [place] [address], [facility] WBC (Bld) [#/Vol] 6.04 10*3/uL Normal 4.00-10.60 [facility] Comment on above: Order Comment: No: D o not add to previous draw Performed By: #### 5 0608 #### [address] PROTHROMBIN TIMEon 9 INR Coag (PPP) [Relative time] 1.09 {INR} Normal 0.91-1.16 [facility] Comment on above: Order Comment: No: [...] 1995;108:231S-246S. Performed By: #### 5 6101 #### [address] PT Coag (PPP) [Time] 14.1 s Normal 12.3-14.8 [facility] Comment on above: Order Comment: No: D o not add to previous draw Result Comment: ALL RESULTS MUST BE INTERPRETED WITH RESPECT TO BLOOD DRAWING ARTIFACT OR DILUTION ERROR OF ANTICOAGULANT AT THE TIME OF SAMPLING. Performed By: #### 5 6101 #### [address] US LIVER 08-14-2019 [facility] Department of Radiology [address] [place] [address] Patient Name: CONSTANTINO CARDOSO : 1970 Sex: F Age: Race: White Pt. Location: [id number] Patient Status: O Ordered Date: 08/13/2019 8:30:00 [...] cholecystectomy. Electronically signed by:Orestes Condon. Transcribed by: [email or web address], User Resident: Electronically Signed by: ORESTES CONDON @ 08/14/2019 02:09 PM Normal [facility] Comment on above: Order Comment: R/O S tones BASIC METABOLIC PANELon 12-0 Calcium [Mass/Vol] 9.4 mg/dL Normal 8.6-10.3 [facility] Comment on above: Order Comment: No: D o not add to previous draw Performed By: #### 3 300, 18313 #### [facility] [address] [place] [address], [place] Chloride [Moles/Vol] 105 mmol/L Normal 98-107 [facility] Comment on above: Order Comment: No: D o not add to previous draw Performed By: #### 3 180, 71616 #### [facility] [address] [place] [address], [place] CO2 [Moles/Vol] 26 mmol/L Normal 21-31 [facility] Comment on above: Order Comment: No: D o not add to previous draw Performed By: #### 3 089, 88176 #### [facility] [address] [place] [address], [place] Creatinine [Mass/Vol] 1.03 mg/dL Normal 0.60-1.20 [facility] Comment on above: Order Comment: No: D o not add to previous draw Performed By: #### 3 581, 80013 #### [facility] [address] [place] [address], [place] GFR/1.73 sq M predicted among blacks MDRD (S/P/Bld) [Vol rate/Area] mL/min/{1.73_m2} Normal >60 [facility] Comment on above: Order Comment: No: D o not add to previous draw Performed By: #### 3 136, 84184 #### [facility] [address] [place] [address], [place] GFR/1.73 sq M predicted among non-blacks MDRD (S/P/Bld) [Vol rate/Area] 57 ml/min/1.73sq m Abnormal >60 [facility] Comment on above: Order Comment: No: D o not add to previous draw Performed By: #### 3 562, 27361 #### [facility] [address] [place] [address], [facility] Glucose [Mass/Vol] 96 mg/dL Normal 70-100 [facility] Comment on above: Order Comment: No: D o not add to previous draw Performed By: #### 3 690, 80305 #### [facility] [address] [place] [address], [facility] Potassium [Moles/Vol] 4.1 mmol/L Normal 3.5-5.1 [facility] Comment on above: Order Comment: No: D o not add to previous draw Performed By: #### 3 690, 76375 #### [facility] [address] [place] [address], [facility] Sodium [Moles/Vol] 138 mmol/L Normal 136-145 [facility] Comment on above: Order Comment: No: D o not add to previous draw Performed By: #### 3 808, 64117 #### [facility] [address] [place] [address], [facility] Urea nitrogen [Mass/Vol] 16 mg/dL Normal 7-25 [facility] Comment on above: Order Comment: No: D o not add to previous draw Performed By: #### 3 690, 21075 #### [facility] [address] [facility]. [address] CBC W/DIFFon 08-13-2019 ABS BASOPHILS 0.0 10*3/uL Normal 0.0-0.2 [facility] Comment on above: Order Comment: No: D o not add to previous draw Performed By: #### 5 0103 #### [facility] [address] [place] [address], [facility] ABS IMM GRANS 0.0 10*3/uL Normal 0.0-0.2 [facility] Comment on above: Order Comment: No: D o not add to previous draw Performed By: #### 5 0103 #### [facility] [address] [place] [address], [facility] ABS NEUTROPHILS 4.0 10*3/uL Normal 1.6-7.6 [facility] Comment on above: Order Comment: No: D o not add to previous draw Performed By: #### 5 0103 #### [facility] [address] [place] [address], [facility] Basophils/100 WBC (Bld) 0.5 % Normal 0.0-1.0 [facility] Comment on above: Order Comment: No: D o not add to previous draw Performed By: #### 5 0103 #### [facility] [address] [place] [address], [facility] Eosinophils (Bld) [#/Vol] 0.2 10*3/uL Normal 0.0-0.5 [facility] Comment on above: Order Comment: No: D o not add to previous draw Performed By: #### 5 0103 #### [facility] [address] [place] [address], [facility] Eosinophils/100 WBC (Bld) 3.3 % Normal 0.0-6.0 [facility] Comment on above: Order Comment: No: D o not add to previous draw Performed By: #### 5 3 #### [facility] [address] [place] [address], [facility] Erythrocyte distribution width (RBC) [Ratio] 12.7 % Normal 11.5-15.0 [facility] Comment on above: Order Comment: No: D o not add to previous draw Performed By: #### 5 0103 #### [facility] [address] [place] [address], [facility] Hematocrit (Bld) [Volume fraction] 33.4 % Low 36.0-45.0 [facility] Comment on above: Order Comment: No: D o not add to previous draw Performed By: #### 5 0103 #### [facility] [address] [place] [address], [facility] Hemoglobin (Bld) [Mass/Vol] 10.5 g/dL Low 12.0-15.0 [facility] Comment on above: Order Comment: No: D o not add to previous draw Performed By: #### 5 0103 #### [facility] [address] [place] [address], [facility] IMMATURE GRANS 0.2 % Normal 0.0-1.0 [facility] Comment on above: Order Comment: No: D o not add to previous draw Performed By: #### 5 0103 #### [facility] [address] [facility] [place] [address], [facility] Lymphocytes (Bld) [#/Vol] 1.8 10*3/uL Normal 1.2-4.0 [facility] Comment on above: Order Comment: No: D o not add to previous draw Performed By: #### 5 0103 #### [facility] [address] [facility] [place] [address], [facility] Lymphocytes/100 WBC (Bld) 28.2 % Normal 20.0-45.0 [facility] Comment on above: Order Comment: No: D o not add to previous draw Performed By: #### 5 3 #### [facility] [address] [facility] [place] [address], [facility] MCH (RBC) [Entitic mass] 28.9 pg Normal 27.0-33.0 [facility] Comment on above: Order Comment: No: D o not add to previous draw Performed By: #### 5 [id number] #### [facility] [address] [facility] [place] [id number], [facility] MCHC (RBC) [Mass/Vol] 31.4 g/dL Low 32.0-35.0 [facility] Comment on above: Order Comment: No: D o not add to previous draw Performed By: #### 5 3 #### [facility] [address] [place] [address], [facility] MCV (RBC) [Entitic vol] 92.0 fL Normal 82.0-98.0 [facility] Comment on above: Order Comment: No: D o not add to previous draw Performed By: #### 5 0103 #### [facility] [address] [place] [id number], [facility] Monocytes (Bld) [#/Vol] 0.4 10*3/uL Normal 0.1-1.0 [facility] Comment on above: Order Comment: No: D o not add to previous draw Performed By: #### 5 0103 #### [facility] [address] [facility] [place] [address], [facility] MONOS 6.2 % Normal 5.0-12.0 [facility] Comment on above: Order Comment: No: D o not add to previous draw Performed By: #### 5 3 #### [facility] [address] [facility] [facility] [place] [address], [facility] Neutrophils/100 WBC (Bld) 61.6 % Normal 40.0-72.0 [facility] Comment on above: Order Comment: No: D o not add to previous draw Performed By: #### 5 3 #### [facility] [address] [facility] [place] [address], [facility] Nucleated RBC/100 WBC (Bld) [Ratio] 0 % Normal 0-0 [facility] Comment on above: Order Comment: No: D o not add to previous draw Performed By: #### 5 0103 #### [facility] [address] [facility] [place] [address], [facility] PLAT CNT 382 10*3/uL Normal 150-400 [facility] Comment on above: Order Comment: No: D o not add to previous draw Performed By: #### 5 3 #### [facility] [address] [place] [address], [facility] RBC (Bld) [#/Vol] 3.63 10*6/uL Low 3.80-5.00 [facility] Comment on above: Order Comment: No: D o not add to previous draw Performed By: #### 5 0103 #### [facility] [address] [place] [address], [facility] WBC (Bld) [#/Vol] 6.45 10*3/uL Normal 4.00-10.60 [facility] Comment on above: Order Comment: No: D o not add to previous draw Performed By: #### 5 0103 #### [facility] [address] [place] [address], [facility] LIPASE BLOODon 08-13-2019 Lipase [Catalytic activity/Vol] 13 Units/L Normal 11-82 [facility] Comment on above: Performed By: #### 3 [id number], [id number] #### [facility] [address] Vital Signs Date Time Vital Sign Value Performing Clinician Facility 02-16-2024 09:03-0400 Blood Pressure Location Yolanda Orzech [facility] 02-16-2024 09:03-0400 Body temperature 97.7 [degF] Yolanda Orzech [facility] 02-16-2024 09:03-0400 Diastolic blood pressure 84 mm[Hg] Yolanda Orzech [facility] 02-16-2024 09:03-0400 Heart rate 78 /min Yolanda Orzech [facility] 02-16-2024 09:03-0400 Systolic blood pressure 128 mm[Hg] Yolanda Orzech [facility] 07-22-2023 13:19-0500 Body height 170.[address] Work Phone: [facility] 07-22-2023 13:19-0500 Body weight 83.[address] Work Phone: [facility] 07-14-2023 11:40-0500 Diastolic blood pressure 95 mm[Hg] Marques Bradley MD Work Phone: [facility] 07-14-2023 11:40-0500 Heart rate 56 /min Marques Bradley MD Work Phone: [facility] 07-14-2023 11:40-0500 Respiratory rate 16 /min Marques Bradley MD Work Phone: [facility] 07-14-2023 11:40-0500 SaO2% (BldA) [Mass fraction] 97 % Marques Bradley MD Work Phone: [facility] 07-14-2023 11:40-0500 Systolic blood pressure 158 mm[Hg] Marques Bradley MD Work Phone: [facility] 07-14-2023 11:10-0500 Body temperature 97.2 [degF] Marques Bradley MD Work Phone: [facility] 07-14-2023 08:34-0500 Body height 170.2 cm Marques Bradley MD Work Phone: [facility] 07-14-2023 08:34-0500 Body weight 88 kg Marques Bradley MD Work Phone: [facility] 04-21-2023 09:30-0400 Body height 170.18 cm Renny Gan Other [employer] Other 04-21-2023 09:30-0400 Body mass index (BMI) [Ratio] 31.21 kg/m2 Renny Gan Other [employer] Other 04-21-2023 09:30-0400 Body weight 90.4 kg Renny Gan Other [employer] Other 04-21-2023 09:30-0400 Diastolic blood pressure 78 mm[Hg] Renny Gan Other [facility] [employer] Other 04-21-2023 09:30-0400 Systolic blood pressure 130 mm[Hg] Renny Gan Other [facility] [employer] Other 03-23-2023 07:33-0400 Diastolic blood pressure 80 mm[Hg] [employer] Judi Mikael Work Phone: [facility] 03-23-2023 07:33-0400 Heart rate 81 /min [employer] Judi Mikael Work Phone: [facility] 03-23-2023 07:33-0400 Respiratory rate 14 /min [employer] Judi Mikael Work Phone: [facility] 03-23-2023 07:33-0400 SaO2% (BldA) [Mass fraction] 95 % [employer] Judi Mikael Work Phone: [facility] 03-23-2023 07:33-0400 Systolic blood pressure 171 mm[Hg] [employer] Judi Mikael Work Phone: [facility] 03-23-2023 06:20-0400 Body height 170.18 cm [employer] Judi Mikael Work Phone: [facility] 03-23-2023 06:20-0400 Body temperature 97.4 [degF] [employer] Judi Mikael Work Phone: [facility] 03-23-2023 06:20-0400 Body weight 90 kg [employer] Judi Mikael Work Phone: [facility] 02-19-2023 00:53-0400 Body temperature 96.98 [degF] Zabrina Patton [facility] 02-19-2023 00:53-0400 Diastolic blood pressure 99 mm[Hg] Isabellan Dokken [facility] 02-19-2023 00:53-0400 Heart rate 75 /min Franklinylinn Dokken [facility] 02-19-2023 00:53-0400 Respiratory rate 16 /min Isabellan Dokken [facility] 02-19-2023 00:53-0400 SaO2% (BldA) [Mass fraction] 98 % Zabrina Dokken [facility] 02-19-2023 00:53-0400 Systolic blood pressure 153 mm[Hg] Krhisinn Dokken [facility] 02-15-2023 10:33-0400 Diastolic blood pressure 89 mm[Hg] [employer] Judi Mikael Work Phone: [facility] 02-15-2023 10:33-0400 SaO2% (BldA) [Mass fraction] 100 % [employer] Judi Mikael Work Phone: [facility] 02-15-2023 10:33-0400 Systolic blood pressure 149 mm[Hg] [employer] Judi Mikael Work Phone: [facility] 02-15-2023 10:00-0400 Heart rate 83 /min [employer] Judi Mikael Work Phone: [facility] 02-15-2023 10:00-0400 Respiratory rate 16 /min [employer] Judi Mikael Work Phone: [facility] 02-15-2023 08:06-0400 Body height 170.18 cm [employer] Judi Mikael Work Phone: [facility] 02-15-2023 08:06-0400 Body temperature 97.6 [degF] [employer] Judi Mikael Work Phone: [facility] 02-15-2023 08:06-0400 Body weight 89.2 kg [employer] Judi Mikael Work Phone: [facility] 10-26-2022 08:03-0500 Diastolic blood pressure 87 mm[Hg] [employer] Judi Mikael Work Phone: [facility] 10-26-2022 08:03-0500 Heart rate 70 /min [employer] Judi Mikael Work Phone: [facility] 10-26-2022 08:03-0500 Respiratory rate 18 /min [employer] Judi Mikael Work Phone: [facility] 10-26-2022 08:03-0500 SaO2% (BldA) [Mass fraction] 98 % [employer] Judi Mikael Work Phone: [facility] 10-26-2022 08:03-0500 Systolic blood pressure 161 mm[Hg] [employer] Judi Mikael Work Phone: [facility] 10-26-2022 06:17-0500 Body height 170.18 cm [employer] Judi Mikael Work Phone: [facility] 10-26-2022 06:17-0500 Body temperature 97.2 [degF] [employer] Judi Mikael Work Phone: [facility] 10-26-2022 06:17-0500 Body weight 88.9 kg [employer] Judi Mikael Work Phone: [facility] 07-22-2022 14:34-0500 Diastolic blood pressure 83 mm[Hg] Ospina SALAM [facility] 07-22-2022 14:34-0500 Mean blood pressure 101 mm[Hg] Ospina SALAM [facility] 07-22-2022 14:34-0500 Systolic blood pressure 136 mm[Hg] Ospina SALAM [facility] 07-22-2022 14:30-0500 Blood Pressure Location Ospina SALAM [facility] 07-22-2022 14:30-0500 Diastolic blood pressure 89 mm[Hg] Ospina SALAM [facility] 07-22-2022 14:30-0500 Heart rate 62 /min Ospina SALAM [facility] 07-22-2022 14:30-0500 Respiratory rate 16 /min Ospina SALAM [facility] 07-22-2022 14:30-0500 SaO2% (BldA) [Mass fraction] 98 % Ospina SALAM [facility] 07-22-2022 14:30-0500 Systolic blood pressure 141 mm[Hg] Ospina SALAM [facility] 04-14-2022 14:50-0400 Blood Pressure Location Moniquejuan luis ReddyJimmy [facility] 04-14-2022 14:50-0400 Body temperature 97.16 [degF] Monique Jimmy [facility] 04-14-2022 14:50-0400 Diastolic blood pressure 86 mm[Hg] Monique Jimmy [facility] 04-14-2022 14:50-0400 Heart rate 72 /min Monique Jimmy [facility] 04-14-2022 14:50-0400 SaO2% (BldA) [Mass fraction] 97 % Monique Jimmy [facility] 04-14-2022 14:50-0400 Systolic blood pressure 131 mm[Hg] Moniquejuan luis ReddyJimmy [facility] 01-28-2022 13:36-0400 Blood Pressure Location Moniquejuan luis ReddyJimmy [facility] 01-28-2022 13:36-0400 Body temperature 97.52 [degF] Moniquejuan luis ReddyJimmy [facility] 01-28-2022 13:36-0400 Diastolic blood pressure 85 mm[Hg] Moniquejuan luis ReddyJimmy [facility] 01-28-2022 13:36-0400 Heart rate 73 /min Monique Reddymetz [facility] 01-28-2022 13:36-0400 SaO2% (BldA) [Mass fraction] 96 % Monique Reddymetz [facility] 01-28-2022 13:36-0400 Systolic blood pressure 122 mm[Hg] Moniquejuan luis ReddyJimmy [facility] 01-11-2022 10:15-0400 Blood Pressure Location Ospina SALAM [facility] [...] (BldA) [Mass fraction] 97 % Ospina SALAM [facility] Date Encounter Type Care Provider Facility Start: 03-19-2024 End: 03-19-2024 ambulatory [facility] Start: 02-16-2024 End: 02-16-2024 ambulatory Yolanda X Orzech [place] [place]: 02-16-2024 End: 02-16-2024 Lab Drop off Yolanda X Orzech [facility] Start: 02-16-2024 End: 02-16-2024 ambulatory Yolanda X Orzech [facility] Start: 02-16-2024 End: 02-16-2024 Patient encounter procedure Yolanda X Orzech [facility] Start: 02-15-2024 End: 02-15-2024 ambulatory [facility] Start: 12-01-2023 ambulatory [facility] Start: 08-25-2023 End: 08-25-2023 ambulatory [facility] Facility:[facility] Start: 07-29-2023 Orders Only Evelyn Black RN Gen eral Surgery Comment on above: Gastroparesis (Prima ry Dx) Start: 07-22-2023 End: 07-22-2023 ambulatory MARQUES BRADLEY Facility:[facility] Start: 07-22-2023 Telephone encounter Evelyn Black RN General Surgery Start: 07-22-2023 End: 07-22-2023 Nutrition therapy Melissa Montalvo RD Work Phone: General Surgery Comment on above: Gastroparesis (Prima ry Dx); Malnutrition of moderate degree (HCC); Gastro-esophageal reflux disease without esophagitis; Overweight (BMI 25.0-29.9); Dietary counseling and surveillance Start: 07-22-2023 End: 07-22-2023 Telemedicine consultation with patient Melissa Katia ALBRECHT Work Phone: [facility] Start: 07-14-2023 End: 07-14-2023 ambulatory MARQUES BARDLEY Facility:[facility] Start: 07-14-2023 End: 07-14-2023 Subsequent hospital visit by physician Marques Bradley MD Work Phone: Gastroenterology Comment on above: Dysphagia, unspecifi ed type [R13.10] Start: 07-13-2023 End: 07-13-2023 ambulatory MARQUES BRADLEY Facility:[facility] Start: 06-06-2023 End: 06-06-2023 ambulatory Samuel Sameer [place] Start: 05-27-2023 Telephone encounter Evelyn Black RN General Surgery Comment on above: Results Start: 05-26-2023 End: 05-26-2023 ambulatory MARQUES BRADLEY Facility:[facility] Start: 05-25-2023 End: 05-25-2023 ambulatory [facility] Facility:[facility] Start: 05-25-2023 End: 05-25-2023 Nursing evaluation of patient and report Nurse Gi Lab 2 Work Phone: Gastroenterology Comment on above: Nausea Start: 05-16-2023 Orders Only Evelyn Black RN Gen eral Surgery Comment on above: Nausea (Primary Dx); Dysphagia, unspecified type Start: 05-06-2023 End: 05-07-2023 ambulatory MARQUES BRADLEY Facility:[facility] Start: 05-02-2023 Telephone encounter Evelyn Black RN General Surgery Start: 04-26-2023 Telephone encounter Evelyn Black RN General Surgery Start: 04-21-2023 End: 04-21-2023 ambulatory Renny Gan Other [employer] Other Start: 04-21-2023 Office outpatient vi sit 15 minutes Renny Gan [facility] Start: 04-18-2023 Telephone encounter Evelyn Black RN General Surgery Comment on above: [employer] Start: 04-07-2023 Telephone encounter Guillermo Martinez DO Work Phone: Gastroenterology Comment on above: Appointment Start: 04-05-2023 End: 04-05-2023 ambulatory Imad Asaad Other [employer] Other Start: 04-05-2023 Telephone encounter Imad Asaad [facility] Start: 03-29-2023 ambulatory Facility:[facility] Start: 03-26-2023 ambulatory Facility:[id number] Start: 03-26-2023 End: 03-31-2023 Evaluation and management of inpatient Renny Gan Facility:[facility] Start: 03-26-2023 ambulatory Facility:[id number] Start: 03-24-2023 End: 03-24-2023 ambulatory Imad Asaad Other [employer] Other Start: 03-24-2023 Telephone encounter Imad Asaad [facility] Start: 03-23-2023 End: 03-23-2023 Emergency department patient visit Judi Youssef Facility:[facility] Start: 03-23-2023 End: 03-23-2023 Emergency department patient visit [employer] Judi Youssef Work Phone: [facility] Work Phone: Start: 03-22-2023 End: 03-22-2023 ambulatory Imad Asaad Other [employer] Other Start: 03-22-2023 Telephone encounter Imad Asaad [facility] Start: 03-09-2023 End: 03-09-2023 ambulatory Imad Asaad Other [employer] Other Start: 03-09-2023 Telephone encounter Imad Asaad [facility] Start: 03-01-2023 End: 03-01-2023 ambulatory Imad Asaad Other [employer] Other Start: 03-01-2023 Telephone encounter Imad Asaad [facility] Start: 02-19-2023 End: 02-19-2023 Emergency department patient visit Zabrina Patton [facility] Start: 02-15-2023 End: 02-15-2023 Emergency department patient visit [employer] Judi Youssef Work Phone: [facility] Work Phone: Start: 11-30-2022 End: 12-01-2022 ambulatory JUDIMATTY COLLIERMER Facility:[facility] Start: 11-27-2022 End: 11-28-2022 ambulatory JUDI MIKAEL Facility:[facility] Start: 11-26-2022 End: 11-26-2022 ambulatory Imad Asaad Other [employer] Other Start: 11-26-2022 Telephone encounter Imad Asaad [facility] Start: 11-04-2022 End: 11-04-2022 ambulatory Judi Youssef Facility:[facility] Start: 11-04-2022 End: 11-04-2022 Admission to same day surgery center [employer] Judi Youssef Work Phone: [facility] [place] Work Phone: Start: 11-04-2022 End: 11-04-2022 ambulatory [employer] Judi Youssef Work Phone: [facility] Work Phone: Start: 11-01-2022 End: 11-02-2022 ambulatory JUDI YOUSSEF Facility:[facility] Start: 10-26-2022 End: 10-26-2022 Emergency department patient visit Judi Youssef Facility:[facility] Start: 10-26-2022 End: 10-26-2022 Emergency department patient visit [employer] Judi Youssef Work Phone: [facility] Work Phone: Start: 09-21-2022 End: 09-21-2022 ambulatory JUDI MIKAEL Facility:[facility] Start: 09-18-2022 End: 09-18-2022 ambulatory BALTAZAR GEORGES . Facility:[facility] Start: 09-14-2022 End: 09-14-2022 ambulatory EUN WILSON . Facility:[facility] Start: 09-07-2022 End: 09-07-2022 ambulatory Imad Asaad Other [facility] Other Start: 09-07-2022 Telephone encounter Imad Asaad [facility] Start: 09-06-2022 End: 09-07-2022 ambulatory JUDI MIKAEL Facility:[facility] Start: 08-20-2022 End: 08-20-2022 ambulatory BALTAZAR GEORGES . Facility:[facility] Start: 08-17-2022 End: 08-18-2022 ambulatory JUDI YOUSSEF Facility:[facility] Start: 08-11-2022 End: 08-12-2022 ambulatory JUDI YOUSSEF Facility:[facility] Start: 08-08-2022 End: 08-08-2022 ambulatory KATHRIN VANCE Facility:[facility] Start: 07-22-2022 End: 07-22-2022 Patient encounter procedure Anai LORNAGUSTAVO [facility] Start: 07-21-2022 End: 07-21-[address] NORA WINN Facility:[facility] Start: 07-15-2022 ambulatory JUDI COLLIERMER Facility: [facility] Start: 07-12-2022 Encounter for genera l adult medical examination without abnormal findings JUDI YOUSSEF [facility] Start: 07-08-2022 End: 07-09-2022 ambulatory JUDI COLLIERMER Facility:[facility] Start: 07-08-2022 End: 07-09-2022 Encounter for general adult medical examination without abnormal findings JUDI COLLIERMER Facility:[facility] Start: 07-05-2022 End: 07-05-[address] JOHNATHAN RUDOLPH Facility:[facility] Start: 06-07-2022 End: 06-07-2022 ambulatory BALTAZAR GEORGES . Facility:[facility] Start: 06-06-2022 End: 06-06-2022 ambulatory BALTAZAR GEORGES . Facility:[facility] Start: 06-04-2022 End: 06-04-[address] NORA WINN Facility:[facility] Start: 04-29-2022 End: 04-29-2022 Lab Drop off Anai REAGAN [facility] Start: 04-14-2022 End: 04-14-2022 Patient encounter procedure Monique Marquez [facility] Start: 03-27-2022 End: 03-30-2022 Evaluation and management of inpatient SHAIKH Juan Luis DAVIS Facility:[facility] Start: 03-01-2022 End: 03-01-2022 Patient encounter procedure Monique Marquez [facility] Start: 02-02-2022 End: 02-02-2022 ambulatory BALTAZAR GEORGES . Facility:[facility] Start: 01-28-2022 End: 01-28-2022 Patient encounter procedure Monique Marquez [facility] Start: 01-11-2022 End: 01-11-2022 Patient encounter procedure Ospina MERARY [facility] Start: 12-24-2021 End: 12-24-2021 Patient encounter procedure JHOANA MELGOZA [facility] Start: 08-13-2019 End: 08-16-2019 Evaluation and management of inpatient LEONA MORTENSEN Facility:[facility] Procedures Date Procedure Procedure Detail Performing Clinician Start: 07-14-2023 Esophagoscp rig transoral hypopharynx crv esoph Evelyn Black RN Start: 05-25-2023 Esophageal motility study w/interp&rpt Evelyn Black RN Start: 03-23-2023 Computed tomography of abdomen and pelvis with contrast [employer] Judi Mikael Work Phone: Start: 02-15-2023 Computed tomography of abdomen and pelvis with contrast [employer] Judi Mikael Work Phone: Start: 11-04-2022 CT of small intestine [employer] Judi Mikael Work Phone: Start: 10-26-2022 Computed tomography of abdomen and pelvis with contrast [employer] Judi Mikael Work Phone: Start: 01-11-2022 Esophagogastroduodenoscopy Anai ROTHMANGUSTAVO Start: 05-13-2021 Esophagogastroduodenoscopy JHOANA Vázquez Start: 09-30-2020 Esophagogastroduodenoscopy JHOANA Vázquez Start: 03-13-2020 Colonoscopy JHOANA MELGOZA Start: 01-30-2020 Esophagogastroduodenoscopy JHOANA Vázquez Start: 08-15-2019 FLUOROSCOPY OF UPPER GI AND SMALL BOWEL USING OTHER CONTRAST ORESTES CONDON Start: 05-17-2019 Colonoscopy JHOANA MELGOZA Start: 05-17-2019 Esophagogastroduodenoscopy JHOANA Vázquez Start: 03-02-2019 Hernia surgical mesh (physical object) JHOANA MELGOZA Comment on above: Dr. Mortensen in [place]. Hernia repair JHOANA MELGOZA Hysterectomy JHOANA MELGOZA Plan of Treatment Date Care Activity Detail Author Start: 05-06-2023 Covid-19 Vaccine () Covid-19 Vaccine () [facility] Start: 05-06-2023 Influenza vaccination C [facility] Start: 09-05-2022 DEPRESSION ASSESSMENT DEPRESSION ASS ESSMENT [facility] Start: 01-01-2022 COVID-19 VACCINE (4 - Pfizer series) COVID-19 VACCINE (4 - Pfizer series) [facility] Start: 2020 SHINGRIX VACCINE (1 of 2) SHINGRIX VACCINE (1 of 2) [facility] Start: 2015 COLOGUARD (FIT-DNA) COLOGUARD (FIT-D NA) [facility] Start: 2015 Colonoscopy COLONOSCOPY [facility] Start: 2015 COLORECTAL CANCER SCREENING COLORECTAL CANCER SCREENING [facility] Start: [address] COLONOGRAPHY [facility] Start: 2015 DIABETES SCREEN DIABETES SCREEN [facility] Start: 2015 Diabetes Screening Diabetes Screenin g [facility] Start: 2015 FECAL OCCULT BLOOD FECAL OCCULT BLOO D [facility] Start: 2015 Lipid 1996 panel - S cristine or Plasma Lipid Screening [facility] Start: 2015 LIPID SCREEN LIPID SCREEN [facility] Start: 2015 SIG[facility]OS[facility] Start: 2010 Mammography [facility] Start: 2000 HPV TESTING HPV TESTING [facility] Start: 1991 PAP TESTING PAP TESTING [facility] Start: 1989 Urine microalbumin profile [facility] Start: 1988 HEPATITIS C SCREENING HEPATITIS C SC REENING [facility] Start: 1988 HIV SCREENING HIV SCREENING [facility] Start: 1970 COVID-19 VACCINE (#1) COVID-19 VACCI NE (#1) [facility] Start: 1970 HEPATITIS B (1 of 3 - 3-dose series) HEPATITIS B (1 of 3 - 3-dose series) [facility] Start: 1970 Hepatitis B Vaccine (1 of 3 - 3-dose series) Hepatitis B Vaccine (1 of 3 - 3-dose series) [facility] End: 07-29-2024 EGD - THERAPEUTIC, EUS, OR TUBE INTERVENTIONS EGD - THERAPEUTIC, EUS, OR TUBE INTERVENTIONS Endoscopy Routine Gastroparesis 1 Occurrences starting 07/29/2023 until 07/29/2024 [facility] Work Phone: Comment on above: 1 Occurrences starti ng 07/29/2023 until 07/29/2024 End: 05-16-2024 Esophageal motility study w/interp&rpt MANOMETRY ESOPHAGEAL Endoscopy Routine Nausea 1 Occurrences starting 05/16/2023 until 05/16/2024 [facility] Work Phone: Comment on above: 1 Occurrences starti ng 05/16/2023 until 05/16/2024 Esophageal motility study w/interp&rpt MANOMETRY ESOPHAGEAL Endoscopy Routine Nausea 05/25/2023 [facility] Work Phone: End: 06-14-2024 Gastric emptying imaging study NM GASTRIC EMPTYING SOLID Radiology Routine Nausea 1 Occurrences starting 05/16/2023 until 06/14/2024 [facility] Work Phone: Comment on above: 1 Occurrences starti ng 05/16/2023 until 06/14/2024 Patient Education [facility] Work Phone: Patient referral [facility] Work Phone: SURGICAL PATHOLOGY [facility] Work Phone: Comment on above: Release Upon Orderin g for 1 Occurrences starting 07/14/2023, 1 completed [facility] Immunizations Immunization Date Immunization Notes Care Provider Jamal robinsadi 06-15-2022 SARS-CoV-2 (COVID-19 ) [id number] Yolanda Lou [facility] 06-09-2022 influenza virus vaccine, unspecified formulation Nurse 2 Work Phone: [facility] 03-18-2022 SARS-CoV-2 mRNA (vhhhjefdmfa-doyl-vql jett) vaccine Ospina SALAM [facility] 11-06-2021 SARS-CoV-2 (COVID-19 ) mRNA BNT-162b2 vax Ospina [employer] [facility] 05-06-2021 influenza virus vaccine, unspecified formulation JHOANA MELGOZA [facility] 02-26-2021 SARS-CoV-2 (COVID-19 ) mRNA BNT-162b2 vax JHOANA MELGOZA [facility] 02-05-2021 SARS-CoV-2 (COVID-19 ) mRNA BNT-162b2 vax Ospina SALAM [facility] Comment on above: Result Comment: 2021: [id number] NEGATED: Highlighted row has not occurred!04-14-2022 influenza virus vaccine, unspecified formulation Monique Marquez [facility] Payers Date Payer Category Payer Unknown RINA MARTINEZ SS PPO [id number] 2022-Present [phone] [address] [place] [address] PPO [id number] 2018 Private Health Insurance [id number] 2018 Private Health Insurance [facility] CHO[facility] [id number] 2018-Present [phone] [address] [place] [address] HMO [id number] 1970 Unknown [id number] 2.16.840.1.200910.3.579.2 .647 1970 Unknown [id number] 2.16.840.1.786662.3.579.2 .593 1970 Unknown [id number] 2.16.840.1.523261.3.579.2 .593 1970 Unknown [id number] 2.16.840.1.070028.3.579.2 .593 1970 Unknown [id number] 2.16.840.1.288105.3.579.2 .593 1970 Unknown [id number] 2.16.840.1.720419.3.579.2 .593 1970 Unknown [id number] 2.16.840.1.555305.3.579.2 .593 1970 Unknown [id number] 2.16.840.1.264645.3.579.2 .593 1970 Unknown [id number] 2.16.840.1.825098.3.579.2 .593 1970 Unknown [id number] 2.16.840.1.487239.3.579.2 .593 1970 Unknown [id number] 2.16.840.1.866801.3.579.2 .593 1970 Unknown [id number] 2.16.840.1.290160.3.579.2 .593 1970 Unknown [id number] 2.16.840.1.731008.3.579.2 .593 1970 Unknown [id number] 2.16.840.1.437811.3.579.2 .593 1970 Unknown [id number] 2.16.840.1.983295.3.579.2 .593 1970 Unknown [id number] 2.16.840.1.949488.3.579.2 .593 1970 Unknown [id number] 2.16.840.1.602485.3.579.2 .593 1970 Unknown [id number] 2.16.840.1.331762.3.579.2 .593 1970 Unknown [id number] 2.16.840.1.756401.3.579.2 .593 1970 Unknown [id number] 2.16.840.1.283914.3.579.2 .593 1970 Unknown [id number] 2.16.840.1.224133.3.579.2 .593 1970 Unknown [id number] 2.16.840.1.968288.3.579.2 .356 1970 Unknown [id number] 2.16.840.1.716164.3.579.2 .356 1970 Unknown [id number] 2.16.840.1.403122.3.579.2 .1286 1970 Unknown [id number] 2.16.840.1.432201.3.579.2 .1286 1970 Unknown [id number] 2.16.840.1.375293.3.579.2 .1286 1970 Unknown [id number] 2.16.840.1.684171.3.579.2 .1286 1970 Unknown [id number] 2.16.840.1.843353.3.579.2 .727 1970 Unknown [id number] 2.16.840.1.751791.3.579.2 .727 1970 Unknown [id number] 2.16.840.1.948924.3.579.2 .727 1959 Medicaid [id number] 1959 Self-pay [id number] 1959 Unknown [id number] 1959 Unknown [id number] Medicare Medicare [id number] Unknown [id number] 2.16.840.1.095884.3.579.2 .531 Unknown [id number] 2.16.840.1.018954.3.579.2 .531 Unknown [id number] 2.16.840.1.888292.3.579.2 .531 Unknown [id number] 2.16.840.1.435430.3.579.2 .531 Unknown [id number] 2.16.840.1.359063.3.579.2 .531 Worker's Compensation Industrial [employer] Ins [facility] [id number] Social History Date Type Detail Facility Start: 12-03-2021 End: 02-16-2024 Tobacco smoking status Ex-smoker (finding) [facility] Start: 08-12-2020 End: 05-06-2023 Sex Assigned At Female [facility] Tobacco smoking status Never [facility] Start: 1970 Sex Assigned At Female F [facility] End: 09-05-2011 History of tobacco use Current smoker [facility] Work Phone: End: 09-05-2011 History of tobacco use Cigarette Smoker [facility] Work Phone: Start: 04-28-2018 End: 05-06-2023 Tobacco use and exposure Smokeless tobacco non-user [facility] Work Phone: Start: 04-28-2018 End: 05-06-2023 Alcohol intake Current drinker of alcohol (finding) [facility] Start: 08-12-2020 End: 05-06-2023 History of Social function [facility] Start: 04-28-2018 End: 05-06-2023 Tobacco Comment still smokes [facility] Start: 04-28-[address] [facility] Start: 1970 Sex Assigned At Not on file C [facility] Start: 07-14-2023 Alcohol intake Ex-drinker (finding) [facility] Functional Status Date Assessment Result Facility 02-16-2024 Functional Status N/A [facility] 02-19-2023 Functional Status N/A [facility] 07-22-2022 Functional Status N/A [facility] 04-14-2022 Functional Status N/A [facility] Clinical Notes 12-02-2021 to 03-19-2024 Evelyn Black RN - 07/29/2023 11:17 AM ESTPatient InstructionsTelephone Encounter - Evelyn Black RN - 07/22/2023 3:[address] - 07/22/2023 1:15 PM EST Note Date & Type Note Facility 03-19-2024 Note [facility] Note Reason for cardiology visit: Patient here for follow up echo and PFT's. Chief Complaint: Palpitation HPI: Constantino Cardoso is a 53 y.o. female who is here today for follow-up visit after she was started on Toprol XL 50 mg daily. She states that the palpitation and shortness of breath are better but she still has palpitation and when she checks her blood pressure it is on the high side but her pulse is usually in the 70s. She denies any chest discomfort at rest or with exertion. Her exertional dyspnea is better. She has been wearing CPAP during the night. She denies orthopnea or paroxysmal nocturnal dyspnea or dizziness or legs edema. She brought her blood pressure log with her and her systolic blood pressure appears in the 140s however the diastolic blood pressure is in the high 80s to 90s. She states that she follows low-salt diet Review of systems All systems were reviewed and they were negative except for the positive findings noted above in the history Past Medical History She has a past medical history of Abnormal ECG, Arrhythmia, Heart valve disease, Mitral valve prolapse, and NSVT (nonsustained ventricular tachycardia) (CMS/HCC). Surgical History She has a past surgical history that includes Hernia repair; Cholecystectomy; Hysterectomy; and Abdominal surgery. Social History She reports that she has quit smoking. Her smoking use included cigarettes. She has never used smokeless tobacco. She reports current alcohol use. No history on file for drug use. Family History Family History Problem Relation Name Age of Onset Heart attack Father Allergies Cyclobenzaprine and Penicillins Medications Current Outpatient Medications: cholecalciferol, vitamin D3, 50 mcg (2,000 unit) capsule, Use 1 capsule in the mouth or throat 1 (one) time each day., Disp: , Rfl: metoprolol succinate XL (Toprol-XL) 50 mg 24 hr tablet, Take 1 tablet (50 mg) by mouth in the morning. Do not crush or chew., Disp: 30 tablet, Rfl: 11 sertraline (Zoloft) 50 mg tablet, Take 50 mg by mouth in the morning., Disp: , Rfl: Last Recorded Vitals Visit Vitals Smoking Status Former Physical Examination: GENERAL: alert and oriented x3, well developed, in no acute distress. HEAD: atraumatic, normocephalic. EYES: TOMI, EOMI. NECK: trachea midline, no JVD present, no carotid bruits present. CARDIAC: S1, S2 present. RRR. No murmur, rubs, or gallops. RESPIRATORY: CTAB, no increased effort of breathing, no rales, rhonchi, or wheezing. ABDOMEN: soft, nontender, nondistended. EXTREMITIES: no lower extremity edema, peripheral pulses are 2+ bilaterally. No rash/skin discoloration present. NEURO: strength/sensation equal and symmetric in bilateral upper and lower extremities. PSYCH: appropriate mood, affect, and judgement. Labs: CBC: Lab Results Component Value Date WBC 6.04 08/14/2019 RBC 6-10 (A) 08/15/2019 HGB 9.8 (L) 08/14/2019 HCT 31.2 (L) 08/14/2019 MCV 92.6 08/14/2019 RDW 12.7 08/14/2019 PLT 340 08/14/2019 PT/INR Lab Results Component Value Date PT 14.1 08/14/2019 INR 1.09 08/14/2019 BMP: Lab Results Component Value Date BUN 11 08/16/2019 EGFR >60 08/16/2019 EGFR >60 08/16/2019 GLU 98 08/16/2019 LFTs: Lab Results Component Value Date BILITOT 0.5 04/30/2019 BILIDIR 0.1 04/30/2019 ALKPHOS 91 04/30/2019 AST 14 04/30/2019 ALT 14 04/30/2019 ALBUMIN 3.8 04/30/2019 PROT 6.3 04/30/2019 Lipids: No results found for: CHOL No results found for: HDL No results found for: LDLCALC No results found for: TRIG No components found for: CHOLHDL TREV: No results found for: TSH HBA1c: No results found for: HGBA1C BNP: No results found for: BNP Last Images: EKG 11/27/2023 showed sinus bradycardia, otherwise normal EKG EKG 06/06/2023 showed normal sinus rhythm, normal EKG 5-day Holter monitor 01/06/2024 Echo 03/13/2024 Pulmonary function test 03/13/2024 Assessment and Plan: Palpitations, Holter monitor showed only sinus tachycardia, it could represent POTS .Her monitor showed 1 event of ventricular run recorded at 12:53 AM and I think it is due to vasovagal reaction and going to junctional rhythm resulting in ventricular escape rhythm probably due to sleep apnea. She is on Toprol-XL she is doing better Dyspnea on exertion, echo showed normal left ventricle systolic and diastolic function without significant valvular heart disease. Her PFT did not show significant pulmonary etiology. Probably due to uncontrolled hypertension History of mitral valve prolapse per patient report not noted on current echo, she has mild mitral rotation Hypertension, systolic blood pressure appears to be relatively well-controlled on Toprol-XL diastolic blood pressure still elevated Sleep apnea, has been back on CPAP Overweight, BMI 28 kg/m???, she lost about 40 to 50 pounds due to hiatal hernia and acid r (more content not included)... [facility] 02-16-2024 Evaluation + Plan note Diagnostic Tests PendingUrine Culture 02/16/24 [facility] 02-15-2024 Note [facility] Note Reason for cardiology consult: New patient here to establish care. Ref from Judi Youssef CNP for racing heart . Chief complaint: Palpitation and dyspnea on exertion HPI: Constantino Cardoso is a 53 y.o. female without prior cardiac history For mitral valve prolapse. States that she had in the past hypertension and she was on medication however she had frequent drop in her blood pressure therefore medications were discontinued. She denies history of hyperlipidemia or diabetes mellitus. She is a former smoker. Patient states that for the last few months she has been having episodes of palpitations particularly when she is up and doing something and the sometimes she has to sit to calm down. There is she feels little dizzy with that. The patient has significant dyspnea on exertion anyway. She never been evaluated by pulmonary. She is not on inhalers. She states that sometimes the palpitation occurs even if she is sitting down. She feels so tired with any activities and she thinks because her heart rate is. She denies any syncope. She denies chest discomfort at rest or with exertion. She denies orthopnea or paroxysmal nocturnal dyspnea however she snores and stops breathing during the night and that she had sleep study which showed sleep apnea. She has not been using the CPAP because she works for long hours. She denies legs edema or leg discomfort on exertion. She states that her blood pressure has been on the high side and sometimes it goes up to 200. She used to be heavier about 225 however she lost 40 to 50 pounds due to hiatal hernia and acid reflux. She used to smoke 2 packs/day for about 20 years however she quit in 2012. She drinks 1 cup of coffee a day and she drinks a lot of water. She does not drink any alcohol. She denies illicit drug ROS: All systems were reviewed and they were negative except for the positive findings noted above in the history. Past Medical History She has a past medical history of Abnormal ECG, Arrhythmia, Heart valve disease, Mitral valve prolapse, and NSVT (nonsustained ventricular tachycardia) (CMS/HCC). Surgical History She has a past surgical history that includes Hernia repair; Cholecystectomy; Hysterectomy; and Abdominal surgery. Social History She reports that she has quit smoking. Her smoking use included cigarettes. She has never used smokeless tobacco. She reports current alcohol use. No history on file for drug use. Family History Family History Problem Relation Name Age of Onset Heart attack Father Allergies Cyclobenzaprine and Penicillins Medications Current Outpatient Medications: cholecalciferol, vitamin D3, 50 mcg (2,000 unit) capsule, Use 1 capsule in the mouth or throat 1 (one) time each day., Disp: , Rfl: sertraline (Zoloft) 50 mg tablet, Take 50 mg by mouth in the morning., Disp: , Rfl: metoprolol succinate XL (Toprol-XL) 50 mg 24 hr tablet, Take 1 tablet (50 mg) by mouth in the morning. Do not crush or chew., Disp: 30 tablet, Rfl: 11 Last Recorded Vitals Visit Vitals BP (!) 146/94 (BP Location: Left arm, Patient Position: Standing) Pulse 58 Ht 1.702 m (5' 7 ) Wt 80.3 kg (177 lb) SpO2 97% BMI 27.72 kg/m??? Smoking Status Former BSA 1.95 m??? Physical Examination: GENERAL: alert and oriented x3, well developed, in no acute distress. HEAD: atraumatic, normocephalic. EYES: TOMI, EOMI. NECK: trachea midline, no JVD present, no carotid bruits present. CARDIAC: S1, S2 present. RRR. No murmur, rubs, or gallops. RESPIRATORY: CTAB, no increased effort of breathing, no rales, rhonchi, or wheezing. ABDOMEN: soft, nontender, nondistended. EXTREMITIES: no lower extremity edema, peripheral pulses are 2+ bilaterally. No rash/skin discoloration present. NEURO: strength/sensation equal and symmetric in bilateral upper and lower extremities. PSYCH: appropriate mood, affect, and judgement. Labs: Labs from 01/02/2024 White blood count 4.7, hemoglobin 12.5, hematocrit 39.1, platelets 327 Sodium 136, potassium 3.5, BUN 16, creatinine 0.86, GFR above 60, glucose 137, HbA1c 5.8% Calcium 9.5 AST 17, ALT 24, alk phos 153, total protein 7.3, total bilirubin 0.6 Triglyceride 80, cholesterol 194, LDL 102, HDL 76 Vitamin D 7.5 TSH 1.6, free T46.2, free T32.6 CBC: Lab Results Component Value Date WBC 6.04 08/14/2019 RBC 6-10 (A) 08/15/2019 HGB 9.8 (L) 08/14/2019 HCT 31.2 (L) 08/14/2019 MCV 92.6 08/14/2019 RDW 12.7 08/14/2019 PLT 340 08/14/2019 PT/INR Lab Results Component Value Date PT 14.1 08/14/2019 INR 1.09 08/14/2019 BMP: Lab Results Component Value Date BUN 11 08/16/2019 EGFR >60 08/16/2019 EGFR >60 08/16/2019 GLU 98 08/16/2019 LFTs: Lab Results Component Value Date BILITOT 0.5 04/30/2019 BILIDIR 0.1 04/30/2019 ALKPHOS 91 04/30/2019 AST 14 04/30/2019 ALT 14 04/30/2019 ALBUMIN 3.8 04/30/2019 PROT 6.3 08/ (more content not included)... [facility] 08-25-2023 Note HNO ID: [id number] Author: Ellis Mayberry DO Service: ? Author [...] August 25, 2023 TIME: 2:59 PM CSN: [id number] [facility] 08-25-2023 Note Q3 Patient Name: Constantino Cardoso Procedure Date: 08/25/2023 2:38 PM Date of : 1970 Admit Type: Outpatient Age: 53 Gender: Female Note Status: Finalized Attending MD: Marques Bradley MD, [id number] Procedure: Upper GI endoscopy Indications: Gastroparesis- for [...] the patient. Procedure Code(s): --- Professional --- 64044 Diagnosis Code(s): --- Professional --- K44.9 Z98.890 CPT copyright 2020 [employer]. All rights reserved. Attending Participation: I personally performed the entire procedure. Scope In: 2:59:10 PM Scope Out: 3:37:20 PM MD Marques Rainey MD 08/25/2023 3:41:00 PM This report has been signed electronically by Marques Bradley MD Number of Addenda: 0 Note Initiated On: 08/25/2023 2:38 PM [facility] 07-29-2023 Note HNO ID: [id number] Author: Evelyn Black RN Service: ? Author Type: Registered Nurse Type: Progress Notes Filed: 07/29/2023 11:18 AM Note Text: e [facility] 07-29-2023 History of Present illness Narrative e documented in this encounter [facility] 07-22-[address] - [...] High Protein, Atkins, Boost Glucose Control, Owyn, [place] Breakfast Essentials Light Start mixed with Fairlife [...] calories, no carbonation, no caffeine. Protein juarez ([id number], Isopure, Gatorade protein), electrolyte drinks (Gatorade or Powerade zero, sugar free liquid IV or Drip Drop), sugar free jello and sugar free popsicles are also acceptable. Nutrition Monitoring & Evaluation: increase PO intake >75% of estimated needs, weight check and patient update Need for Follow up: based on surgery status documented in this encounter [facility] 07-22-2023 Note HNO ID: [id number] Author: Melissa Montalvo RD Service: ? Author Type: Registered Dietitian Type: Progress Notes Filed: 07/22/2023 4:06 PM Note Text: [facility] Nutrition Therapy: Virtual Consult - Initial Assessment I have communicated my name and active licensure. The patient?s identity and physical location were verified at the time of this visit. Either the patient or their legal inbound call center representative has been informed of the risks [...] High Protein, Atkins, Boost Glucose Control, Owyn, [place] Breakfast Essentials Light Start mixed with Fairlife fat free or 1% milk. -Check www.bariatricfusion.com or www.Evalve.com for additional options. Take small bites, eat slowly, chew food well, and always eat protein first. Separate eating and drinking by 30 min before and after. Aim for >64 oz water/day. Take small sips and avoid straws. Liquids should be sugar-free, no calories, no carbonation, no caffeine. 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 Gamaliel body weight: 159 lbs. 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 [facility] 07-22-2023 Miscellaneous Notes BMI SPECIALTY CARE COORDINATION TELEPHONE ENCOUNTER Pt was seen in clinic and an EGD was ordered and completed. Recommendation was a GPOEM. Will consult with surgeon next week regarding next POC for pt. Pt VU. documented in this encounter [facility] 07-22-2023 History of Present illness Narrative [facility] Nutrition Therapy: Virtual Consult - Initial Assessment I have communicated my name and active licensure. The patient s identity and physical location were verified at the time of this visit. Either the patient or their legal inbound call center representative has been informed of the risks [...] High Protein, Atkins, Boost Glucose Control, Owyn, [place] Breakfast Essentials Light Start mixed with Fairlife [...] calories, no carbonation, no caffeine. 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 Gamaliel body weight: 159 lbs. 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 Procedure Code(s): --- Professional --- 80686 Diagnosis Code(s): --- Professional --- K44.9 K31.89 Z98.890 R10.13 CPT copyright 2020 [employer]. All rights reserved. Attending Participation: I personally performed the entire procedure. Scope In: 10:40:19 AM Scope Out: 10:50:37 AM MD Marques Rainey MD 07/14/2023 10:53:09 AM This report has been signed electronically by Marques Bradley MD Number of Addenda: 0 Note Initiated On: 07/14/2023 10:24 AM [facility] 07-14-2023 Nurse Note 1121: Dr. Mehrdad Carter paged : Patient Constantino Cardoso in post bed 10: Complaining of 10 abdominal pain (gas), mild nausea. Any further orders? Thanks! Mari Spaulding [employer] [facility]B[employer] PATIENT EDUCATION NOTE TOPIC: GI PROCEDURES: [...] In Department: GASTROENTEROLOGY documented in this encounter [facility] 07-13-2023 Note HNO ID: [id number] Author: Brennen Shaw, PhD Service: ? Author Type: Physician Type: Progress Notes Filed: 07/19/2023 10:07 AM Note Text: [facility] EVALUATION DATE OF SERVICE: July 13, 2023 TIME OF SERVICE: 2:10 PM-3:29 PM COST CENTER: O CPT CODE: - 26912 Brief Emotional/Behavioral Assessment with scoring/documentation - [id number] Virtual Psych Diagnostic Eval BILLING CODE: ENDO PSYL MAIN 96456/Marco DATE OF FIRST SERVICE THIS CYCLE: July 13, 2023 SESSION #: 1 BMI Surgical Pathway Visit type: Bariatric Surgeon Visit I have communicated my name and active licensure. The patient's identity and physical location were verified at the time of this visit. Either the patient or their legal inbound call center representative has been informed of the risks [...] other people who have undergone the procedure (assisted Specific areas of understanding that should be [...] the binge episod (more content not included)... [facility] 05-27-2023 Miscellaneous Notes BMI SPECIALTY CARE COORDINATION TELEPHONE ENCOUNTER Pt contacted today regarding testing ordered when she had a consult with Dr Bradley. Manometry was normal and her GES was severely delayed. Reviewed results and will discuss with if POP is the next plan of care. Will update pt. Pt agreed with plan. documented in this encounter [facility] 05-26-2023 Note HNO ID: [id number] Author: Nabil Bell RT(R) Service: Nuclear Medicine [...] 715 PATIENT DISCHARGED TO: Ambulatory patient, left [place] department area. A Diagnostic radioactive procedure has taken place, with no further precautions necessary other than routine body substance precautions. More information regarding radiation safety can be found using this link: [email or web address] SIGNATURE: RT Charmaine(R) PATIENT NAME: Constantino Cardoso DATE: May 26, 2023 TIME: 7:17 AM PAGER/CONTACT #: [facility] 05-25-2023 Note HNO ID: [id number] Author: Pedro Gonzalez LPN Service: ? Author Type: LICENSED NURSE Type: Progress Notes Filed: 05/25/2023 4:15 PM Note Text: Name: Constantino Cardoso [facility]#: [id number] Date: 05/25/2023 ESOPHAGEAL MANOMETRY TEST Indication: Nausea [...] the test without difficulty. .Pedro Gonzalez LPN [facility] 05-25-2023 History of Present illness Narrative Name: Constantino Cardoso [facility]#: [id number] Date: 05/25/2023 ESOPHAGEAL MANOMETRY TEST Indication: Nausea [...] .Pedro Gonzalez LPN documented in this encounter [facility] 05-16-2023 Miscellaneous Notes BMI SPECIALTY CARE COORDINATION [...] a gastric bypass. documented in this encounter [facility] 05-06-2023 Note HNO ID: [id number] Author: Marques Bradley MD Service: ? Author [...] for internal providers or letter via the [employer] Service for external providers. Chief Complaint: [...] s/p RYGB 2017 , hiatal hernia repair 2019 reuiring EGD [...] Bradley MD Date: 05/12/2023 Time: 8:15 AM [facility] 05-02-2023 Miscellaneous Notes [facility] SPECIALTY CARE COORDINATION TELEPHONE ENCOUNTER Chief complaint & duration dysphagia. Type of procedure: hernia repair hiatal with Dr. MORTENSEN in [place] February of 2019. Sending OP notes Nursing assessment (subjective/objective) . pain in chest area and getting worse Went to [place] ED March 2023 who told her she needed a stent in her heart..but her c/o were difficulty swallowing and sent pt home and referred her to [facility] and was there in the hospital [...] after records obtained documented in this encounter [facility] 04-26-2023 Miscellaneous Notes [facility] SPECIALTY CARE COORDINATION TELEPHONE ENCOUNTER Second attempt to contact this pt. Pt has upcoming information, and unable to complete any chart prep, history, symptoms, testing etc. LVM and call back number. documented in this encounter [facility] 04-21-2023 Evaluation note Encounter Date Diagnosis [...] 20 mg 4 times daily sent to [facility] today RTO 6 weeks Apr, Dysphagia (ICD-10 - R13.10) [employer] Other 08-14-2023 Miscellaneous Notes* Telephone Encounter - Evelyn Black RN - 04/18/2023 2:13 PM EDT [facility] SPECIALTY CARE COORDINATION TELEPHONE ENCOUNTER Contacted pt regarding a referral from Dr Martinez's office. LVM and call back number. [facility] Miscellaneous Notes* Telephone Encounter - Yancy Lopez - 04/07/2023 1:15 PM EDT Referral rec'd [facility] Evaluation + Plan note Extracted from: [...] pain, # 20 tab(s), Refills(s) 0, Pharmacy: [facility]/pharmacy #[id number], 170, cm, 02/19/23 0:56:00 EDT, Height/Length [...] are safe for you. General instructions Take lihp-krp-etctsun and prescription medicines only as told by [...] provider. Document Revised: 12/29/2020 Document Reviewed: 12/29/2020 [employer] Patient Education 2022 [employer]. Follow Up Care 02/19/2023 00:51:16 With:JUDI YOUSSEF Address: [address] [place] [phone] Business (1) When:02/22/2023 Comments:Take the pain medication [...] water added (diluted fruit juice). Eat bland, roma-uy-niqlvi foods in small amounts as you are able. These foods include bananas, applesauce, rice, lean meats, toast, and crackers. Avoid fluids that contain a lot of sugar or caffeine, such as energy drinks, sports drinks, and soda. Avoid alcohol. Avoid spicy or fatty foods. General instructions Take mtlv-bjc-chatzvj and prescription medicines only as told by your health care provider. Drink enough fluid to keep your urine pale yellow. Wash your hands often using soap and water. If soap and water are not available, use hand restorer lace and textiles. Make sure that all people in your [...] eating and drinking to prevent dehydration. Take xzii-jot-xckjbxi and prescription medicines only as told by [...] 08/22/2006 Document Revised: 12/14/2019 Document Reviewed: 01/30/2019 [employer] Patient Education 2019 [employer] Follow Up Care 01/28/2022 13:58:23 With:Monique Marquez CNP Address: When:3 months [facility] 05-26-2022 Hospital Discharge [...] drinks. ?Tomatoes and foods made with tomatoes. ?Cundiyo or spicy foods. ?Chocolate and peppermint. Do not drink alcohol. General instructions Take wcnm-cjo-ntcjnry and prescription medicines only as told by [...] 11/11/2004 Document Revised: 12/18/2018 Document Reviewed: 12/18/2018 [employer] Patient Education 2020 [employer]send. Follow Up Care 01/13/2022 12:36:01 With:Monique Marquez CNP Address: When:3 months [facility] 05-09-2022 Hospital Discharge instructions Patient Education 01/11/2022 09:56:58 Endoscopy, Care After Procedure [facility] Endoscopy Care After Procedure Please read the instructions outlined below and refer to this sheet in the next few weeks. These discharge instructions provide you with general information on caring for yourself after you leave thespital. Your doctor may also give you specific [...] blood. Document Released: 04/05/2005 Document Re-Released: 02/13/2007 [employer] Patient Information Envia Lá. 01/11/2022 09:56:58 Pearce's Esophagus Pearce's Esophagus Pearce's [...] drinks. ?Tomatoes and foods made with tomatoes. ?Cundiyo or spicy foods. ?Chocolate and peppermint. Do not drink alcohol. General instructions Take rcuq-bjm-evmsamx and prescription medicines only as told by [...] 11/11/2004 Document Revised: 12/18/2018 Document Reviewed: 12/18/2018 [employer] Patient Education 2020 [employer]send. Follow Up Care 12/03/2021 15:32:26 With:Anai REAGAN Address: [address] [place] [address] Business (1) When:1 to 2 weeks Comments:Call for any problems. [facility]03-30-2022 Hospital Discharge instructions Follow Up Care 12/02/2021 10:32:32 With:ABAD SWARTZ, JHOANA Castro, URL Address: [address] [place] [address] When: Unknown [facility] Evaluation + Plan note Future Appointments Appointment Date:01/11/2022 09:40:00 AM Scheduled Provider: Location:[facility] Appointment Type:Surgery [facility] Evaluation + Plan note Future Appointments Appointment Date:04/14/2022 03:00:00 PM Scheduled Provider:Monique Marquez CNP Location:[facility] Appointment Type:[facility] Follow Up Future Scheduled Tests Radiology* NM Gastric Emptying Study 01/28/22 [facility] Evaluation + Plan note Future Appointments Appointment Date:04/14/2022 03:00:00 PM Scheduled Provider:Monique Marquez CNP Location:[facility] Appointment Type:[facility] Future Appointments Appointment Date:04/20/2022 12:00:00 PM Scheduled Provider: [facility] Type:US Abdominal/Pelvis () Appointment Date:06/02/2022 09:45:00 AM Scheduled Provider:Anai REAGAN MD Location:[facility] Appointment Type:[facility] Follow Up Future Scheduled Tests Laboratory* Fecal WBC Lactoferrin 04/14/22 * Giardia lamblia, Direct Detection EIA 04/14/22 * O & P Exam, Routine 04/14/22 * Clostridium difficile by PCR 04/14/22 * Enteric Panel by PCR 04/14/22 * CBC w/ Auto Diff 04/14/22 * Comprehensive Metabolic Panel 04/14/22 Radiology* US Abdomen Complete 04/20/22 [facility] Evaluation + Plan note Future Appointments Appointment Date:06/02/2022 09:45:00 AM Scheduled Provider:Anai REAGAN MD Location:[facility] Appointment Type:[facility] Follow Up Diagnostic Tests Pending * O & P Exam, Routine 04/29/22 * Giardia lamblia, Direct Detection EIA 04/29/22 [facility] note[facility] assessment information [facility] Work Phone: Evaluation noteNo InformationNojohn j. [facility] Other Evaluation note* Diagnosis Nausea- Primary Nausea alone Dysphagia, unspecified type documented in this encounter [facility] note* Diagnosis Nausea Nausea alone documented in this encounter [facility] note* Diagnosis Dysphagia, unspecified type Gastroparesis History of Ramiro fundoplication Personal history of surgery to other organs documented in this encounter [facility] note* Diagnosis Gastroparesis- Primary Malnutrition of moderate degree (HCC) Malnutrition of moderate degree Gastro-esophageal reflux disease without esophagitis Esophageal reflux Overweight (BMI 25.0-29.9) Overweight Dietary counseling and surveillance Dietary surveillance and counseling documented in this encounter [facility] note* Diagnosis Gastroparesis- Primary documented in this encounter [facility] general Narrative - Reported* Type Description Date Medical History mitral valve prolapse Medical History gallstones Medical History Acid reflux Medical History Hiatal Hernia Medical History headache Surgical History hysterectomy Surgical History cholecystectomy Surgical History hiatal hernia repair Hospitalization History see above Hospitalization History kindey infections hospit alized x3 [facility] Other Hospital course Narrative No data available for this section [facility] Discharge instructions No data available for this section [facility] Additional Instructions Follow-up with your primary care doctor Return to ED if develop worsening symptoms or [facility] Work Phone: Hospital Discharge instructions Additional Instructions If your symptoms return/worsen or you develop any further concerns or symptoms please see your doctor or return to the emergency department immediately. Please be sure to continue follow-up with the bessemer regulator and with your scheduled EGD and further testing.[facility] Work Phone: Progress note No data available for this section [facility] (narrative)* Diagnostic Procedure Only (Routine) - Authorized Specialty Diagnoses / Procedures Referred By Contac t Referred To Contact MOLECULAR & FUNCTIONAL IMAGING Diagnoses Nausea Procedures NM GASTRIC EMPTYING SOLID [place]STRIC [place] [address] [place] [id number] Molecular [facility] Functional [facility] [address] [place] [address] Referral ID Status Reason Start Date Expiration Date Visits Requested Visits Authorized [id number] Authorized Auto-Generat ed Referral 05/16/2023 06/14/2024 1 1 * Outpatient Procedure (Routine) - Authorized Specialty Diagnoses / Procedures Referred By Contac t Referred To Contact [facility] Diagnoses Nausea Procedures MANOMETRY ESOPHAGEAL ESOPHAGEAL MOTILITY STUDY W/INTERP&RPT Marques Bradley MD [address] [place] [address] [facility] [address] [place] [address] Referral ID Status Reason Start Date Expiration Date Visits Requested Visits Authorized [id number] Authorized Auto-Generat ed Referral 05/16/2023 05/16/[address] [facility] for referral (narrative)* Outpatient Procedure (Routine) - Closed Specialty Diagnoses / Procedures Referred By Eileen mueller Referred To Contact [facility] Diagnoses Dysphagia, unspecified type Gastroparesis History of Ramiro fundoplication Procedures EGD - THERAPEUTIC, EUS, OR TUBE INTERVENTIONS ESOPHAGOGASTRODUODENOSCOPY TRANSORAL DIAGNOSTIC STOMACH SURGERY PROCEDURE UNLISTED Marques Bradley MD [address] [place] [address] [facility] [address] [place] [address] Referral ID Status Reason Start Date Expiration Date V isits Requested Visits Authorized [id number] Closed Auto-Generate d Referral 05/27/2023 05/27/[address] [facility] for referral (narrative)* Outpatient Procedure (Routine) - Authorized Specialty Diagnoses / Procedures Referred By Eileen mueller Referred To Contact [facility] Diagnoses Gastroparesis Procedures EGD - THERAPEUTIC, EUS, OR TUBE INTERVENTIONS ESOPHAGOGASTRODUODENOSC OPY TRANSORAL DIAGNOSTIC STOMACH SURGERY PROCEDURE UNLISTED Marques Bradley MD [address] [place] [address] [facility] [address] [place] [address] Referral ID Status Reason Start Date Expiration Date Visits Requested Visits Authorized [id number] Authorized Auto-Generat ed Referral 3 07/29/[address] [facility] for visit Narrative* Outpatient Procedure (Routine) - Closed Specialty Diagnoses / Procedures Referred By Eileen mueller Referred To Contact [facility] Diagnoses Dysphagia, unspecified type Gastroparesis History of Ramiro fundoplication Procedures EGD - THERAPEUTIC, EUS, OR TUBE INTERVENTIONS ESOPHAGOGASTRODUODENOSCOPY TRANSORAL DIAGNOSTIC STOMACH SURGERY PROCEDURE UNLISTED Marques Bradley MD [address] [place] [address] [facility] [address] [place] [address] Referral ID Status Reason Start Date Expiration Date V isits Requested Visits Authorized [id number] Closed Auto-Generate d Referral 05/27/2023 05/27/2024 1 1 [facility] Summary Purpose Family History No Family History Records Found Relationship Condition Age at Onset Recorded Date/T daniel father Myocardial infarction Unknown Malignant neoplasm Unknown sister Seizure Unknown Hypertension Unknown Advance Directives No Advanced Directives Records Found Advance Directive Response Recorded Date/ Time Advance Directives No November 23, 018 9:23am Advance Directive Response Recorded Date/ Time Advance Directives No November 23 018 10:23am Hospital Course Note MR#: [id number] [facility] Pt. Name: Constantino Cardoso Admitted: 08/13/2019 [...] a 49-year-old female, who was transferred to [facility] from [facility] with acute abdominal pain. The pain has started on Tuesday while at work. 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 The pain feels similar to when she was here in April during her stay. During that time, she was told there was nothing left for Dr. Mortensen to do and she has been following up with GI specialist in [place]. She is actually due to have an [...] CREATED AUTHOR 06/03/2020 [facility] DATE CREATED AUTHOR AUTHOR'S ORGANIZ ATION 01/17/2023 [facility] DATE CREATED AUTHOR AUTHOR'S ORGANIZ ATION 04/02/2023 [facility] DATE CREATED AUTHOR AUTHOR'S ORGANIZ ATION 05/16/2023 [facility] DATE CREATED AUTHOR AUTHOR'S ORGANIZ ATION 08/26/2023 [facility] DATE CREATED AUTHOR AUTHOR'S ORGANIZ ATION 12/03/2023 [facility] DATE CREATED AUTHOR AUTHOR'S ORGANIZ ATION 02/17/2024 [facility] DATE CREATED AUTHOR AUTHOR'S ORGANIZ ATION 02/19/[address] [facility] DATE CREATED AUTHOR AUTHOR'S ORGANIZ ATION 02/26/[address] [facility] DATE CREATED AUTHOR AUTHOR'S ORGANIZ ATION 03/23/2024 [facility] DATE CREATED AUTHOR AUTHOR'S ORGANIZ ATION 03/26/2024 [facility] Care Team (unrecognized sect ion and content) Team Status: Inactive Member Role Status Dates Judi Youssef CATERING CHEF-C Primary Care Provider Active Conner Griffith DO Emergency Provider Active Team Status: Active Member Role Status Dates Judi Youssef NP-C Primary Care Provider Active Team Status: Inactive Member Role Status Dates Jennie Ayon MD Attending Provider Active Judi Youssef NP-C Primary Care Provider Active Team Status: Inactive Member Role Status Dates Judi Youssef CATERING CHEF-C Primary Care Provider Active Pete Thakkar DO Emergency Provider Active Merchandise Distributor Relationship Specialty Start Date End Date Joel Alejandra Onel PCP - General Family Medicine 04/26/18 Rafa Rangel Nelly [address] [address] Referring General Surgery 04/26/18 Merchandise Distributor Relationship Specialty Start Date End Date Ny Joel Onel PCP - General Family Medicine 04/26/18 Rafa Rangel [address] [place] [address] Referring General Surgery 04/26/18 Merchandise Distributor Relationship Specialty Start Date End Date DomenicoJoel blanco Onel PCP - General Family Medicine 04/26/18 Rafa Rangel [address] [place] [address] Referring General Surgery 04/26/18 Merchandise Distributor Relationship Specialty Start Date End Date Joel Alejandra PCP - General Family Medicine 04/26/18 Rafa Rangel [address] [place], [place] [address] [place] [address] Referring General Surgery 04/26/18 Merchandise Distributor Relationship Specialty Start Date End Date Joel Alejandra PCP - General Family Medicine 04/26/18 Raf[address]angel [address] [place] [address] Referring General Surgery 04/26/18 Merchandise Distributor Relationship Specialty Start Date End Date Joel Alejandra PCP - General Family Medicine 04/26/18 Rafa Rangel [address] [place] [address] Referring General Surgery 04/26/18 Merchandise Distributor Relationship Specialty Start Date End Date Joel Alejandra PCP - General Family Medicine 04/26/18 Rafa Rangel [address] [place] [address] [address] [place] [address] Referring General Surgery 04/26/18 Merchandise Distributor Relationship Specialty Start Date End Date DomenicoJoel blanco PCP - General Family Medicine 04/26/18 Rafa Rangel [address] [place] [address] [address] [place] [address] Referring General Surgery 04/26/18 Merchandise Distributor Relationship Specialty Start Date End Date Ny Joel Onel PCP - General Family Medicine 04/26/18 Rafa Rangel [address] [place] [address] [address] [place] [address] Referring General Surgery 04/26/18 Merchandise Distributor Relationship Specialty Start Date End Date Joel Alejandra PCP - General Family Medicine 04/26/18 Rafa Rangel [address] [place] [address] [address] [place] [address] Referring General Surgery 04/26/18 Merchandise Distributor Relationship Specialty Start Date End Date Domenicobella Joel Onel PCP - General Family Medicine 04/26/18 Rafa Rangel [address] [address] Referring General Surgery 04/26/18 Goals (unrecognized section and content) Goals may be documented in a n alternate section REASON FOR VISIT (unrecogniz ed section and content) Reason Comments Appointment Reason Comments Cable Rigger - Other Reason Onset Date Comments Procedure 05/25/2023 Manometry Esopha geal Specialty Diagnoses / Procedures Referred By Contac t Referred To Contact [facility] Diagnoses Nausea Procedures MANOMETRY ESOPHAGEAL ESOPHAGEAL MOTILITY STUDY W/INTERP&RPT Marques Bradley MD [address] [place] [address] [facility] [address] [place] [address] Referral ID Status Reason Start Date Expiration Date V isits Requested Visits Authorized [id number] Closed Auto-Generate d Referral 05/16/2023 05/16/2024 1 1 Reason Comments Results Reason Comments Patient Education Assessment Source Comments (unrecognize d section and content) In the event this informatio n is protected by the Federal Confidentiality of Alcohol and Drug Abuse Patient Records regulations: The Federal rules restrict any use of the information to criminally investigate or prosecute any alcohol or drug abuse patient.[facility] the event this information is protected by the Federal Confidentiality of Alcohol and Drug Abuse Patient Records regulations: The Federal rules restrict any use of the information to criminally investigate or prosecute any alcohol or drug abuse patient.[facility] the event this information is protected by the Federal Confidentiality of Alcohol and Drug Abuse Patient Records regulations: The Federal rules restrict any use of the information to criminally investigate or prosecute any alcohol or drug abuse patient.[facility] the event this information is protected by the Federal Confidentiality of Alcohol and Drug Abuse Patient Records regulations: The Federal rules restrict any use of the information to criminally investigate or prosecute any alcohol or drug abuse patient.[facility] the event this information is protected by the Federal Confidentiality of Alcohol and Drug Abuse Patient Records regulations: The Federal rules restrict any use of the information to criminally investigate or prosecute any alcohol or drug abuse patient.[facility] the event this information is protected by the Federal Confidentiality of Alcohol and Drug Abuse Patient Records regulations: The Federal rules restrict any use of the information to criminally investigate or prosecute any alcohol or drug abuse patient.[facility] the event this information is protected by the Federal Confidentiality of Alcohol and Drug Abuse Patient Records regulations: The Federal rules restrict any use of the information to criminally investigate or prosecute any alcohol or drug abuse patient.[facility] Hospital[facility] the event this information is protected by the Federal Confidentiality of Alcohol and Drug Abuse Patient Records regulations: The Federal rules restrict any use of the information to criminally investigate or prosecute any alcohol or drug abuse patient.[facility] the event this information is protected by the Federal Confidentiality of Alcohol and Drug Abuse Patient Records regulations: The Federal rules restrict any use of the information to criminally investigate or prosecute any alcohol or drug abuse patient.[facility] HospitalIn the event this information is protected by the Federal Confidentiality of Alcohol and Drug Abuse Patient Records regulations: The Federal rules restrict any use of the information to criminally investigate or prosecute any alcohol or drug abuse patient.[facility] HospitalIn the event this information is protected by the Federal Confidentiality of Alcohol and Drug Abuse Patient Records regulations: The Federal rules restrict any use of the information to criminally investigate or prosecute any alcohol or drug abuse patient.[facility] HospitalIn the event this information is protected by the Federal Confidentiality of Alcohol and Drug Abuse Patient Records regulations: The Federal rules restrict any use of the information to criminally investigate or prosecute any alcohol or drug abuse patient.[facility] FOR RECORDS PERTAINING TO PATIENTS WHO [...] BE BASED ON THE PRIMARY CLINICAL RECORDS. [facility]. provides no warranty or guarantee of the accuracy or completeness of information in this document.
[2024-04-06 09:05] LABS: Anion Gap 10.7; Calcium 9.2 mg/dL (8.5-10.1); Carbon Dioxide 29.1 mmol/L (21.0-32.0); Chloride 106 mmol/L (98-107); Estimated GFR (African America >60 (>=60); Estimated GFR (Non-African Ame >60 (>=60); Glucose 93 mg/dL (74-106); Potassium 3.8 mmol/L (3.5-5.1); Sodium 142 mmol/L (136-145)
== END 2024-04-06 07:57 | disposition home or self-care (01) ==
LOC: LAB 07:57
PROVIDERS: PCP Nurse Practitioner Family; Visit Provider Internal Medicine Cardiovascular Disease
DX: I10 Essential (primary) hypertension (principal)
CPT/HCPCS: 36415; 80048

== ENCOUNTER 2024-04-13 14:13 | Emergency (ER) | payer BC, SELFPAY ==
[2024-04-13 14:29] VITALS: BP 162/88; PULSE 56; TEMP 36.5; O2SAT 99; BMI 27.7
--- NOTE | 2024-04-13 14:34 | ECG_ITS ---
[facility] Test Date: 2024-04-13 Pat Name: CONSTANTINO CARDOSO Department: Room: - Gender: Female Verification Rep: : 1970 Requested By: STEPHANIE YOUSSEF Order Number: [id number] Reading MD: SU GARLAND Measurements Intervals [place] Rate: 50 P: 54 UT: 160 QRS: 39 QRSD: 102 T: 54 QT: 484 QTc: 457 Interpretive Statements 1100 Sinus rhythm 8304 Long QTc interval 9150 abnormal ECG Compared to ECG 11/27/2023 14:34:20 Sinus bradycardia no longer present Electronically Signed On 04-13-2024 18:34:01 EDT by SU GARLAND
--- OUTSIDE RECORDS SUMMARY | 2024-04-13 14:46 | XMS_ITS | CCD ---
Author Organization [facility] Care Team Providers Care Physical Science Technician Name Role Phone LEONA MORTENSEN Admitting Unavailable LEONA MORTENSEN Attending Unavailable KEVIN HERRERA Primary Care Unavailable KEVIN HERRERA Referring Unavailable [place] Procedure Practitioner Unavailab ORESTES Cruz Surgeon Unavailable JUDI YUOSSEF Primary Care Physician [phone] DONI Youssef Primary Care Provider DO Conner Griffith Emergency Provider [phone] Jennie Ayon Unavailable MD Jennie Ayon Attending [...] Care Unavailable MIKAEL, JUDI Consulting Unavailable Mikael GILL BOX FIXER-C Judi Joan Primary Care Provider DO Conner Griffith M Emergency Provider DO Bijan Pete A Emergency Provider [facility] Primary [facility] Provider Rafa Rangel Unavailable [phone] Renny Gan Unavailable Mikael, Judi Joan Primary Care Unavailable Gladis, Conner M Admitting Unavailable Gladis, Conner M Attending Unavailable Mikael, Judi Joan Primary Care Unavailable Asaad, Imad Admitting Unavailable Asaad, Imad Attending Unavailable Renny Gan Consulting Unavailabl e [facility], Judi Joan Primary Care Unavailable Deann Montalvo Attending Unavailable Alahmad, Alaa Admitting Unavailable Mikael, Judi Joan Primary Care Unavailable Gladis, Conner M Admitting Unavailable Gladis, Conner M Attending Unavailable Mikael, Judi Joan Primary Care Unavailable Keister, Pete A Admitting Unavailable Keister, Pete A Attending Unavailable KROHMARQUES D Referring Unavailable [facility] Primary Care Unavailable [facility] Primary Care Unavailable KROH, MARQUES D Referring Unavailable KROH, MARQUES Patel Attending Unavailable PLESCIA IMER Referring Unavailable [facility] Primary Care Unavailable [facility] Primary Care Unavailable KROH, MARQUES D Referring Unavailable KAITLYN TORRES Attending Unavailable KROH, MARQUES Patel Referring Unavailable [facility] Primary Care Unavailable KATIAMELISSA VALLECILLO Attending Unavailable KROH, MARQUES D Referring Unavailable [facility] Primary Care Unavailable SLYPARTHAR ADEL Attending Unavailable KROHMARQUES D Referring Unavailable [facility] Primary Care Unavailable BRENNEN SHAW Attending Unavailable Orzech, Yolanda X Attending Unavailable Orzech, Yolanda X Admitting Unavailable EDISON KINCAID Attending Unavailable EDISON KINCAID Attending Unavailable Orzech, Yolanda X Attending Unavailable Orzech, Yolanda X Attending Unavailable Orzech, Yolanda X Admitting Unavailable Orzech, Yolanda X Attending Unavailable Samuel Estrella Attending Unavailable Allergies Allergy Classification Reported Allergen(s) Allergy Type Date of Onset Reaction(s) Facility (6 sources) cyclobenzaprine; Translations: [CYCLOBENZAPRINE] Drug Allergy 04-28-20 18 Swelling of Lip/Tongue/Thr oat [facility] Repository (7 sources) Penicillins; Translations: [PENICILLINS] Drug allergy (disorder) 09-02-20 15 Rash [facility]ository (20 sources) cyclobenzaprine; Translations: [cyclobenzaprine] Drug Allergy 04-28-20 18 Pharyngeal swelling (finding), Swelling [facility] (20 sources) Penicillin; Translations: [penicillin] Drug Allergy 04-28-20 18 Swelling (morphologic abnormality), Swelling [facility] (8 sources) penicillAMINE Drug Allergy rash [employer] Other (2 sources) cyclobenzaprine Drug Allergy 03-23-20 16 The [facility] Repository (1 source) traMADol Drug Allergy The [facility] Repository (1 source) traMADol Drug Allergy The [facility] Repository (1 source) cyclobenzaprine Drug Allergy 03-23-20 23 [facility] Repository (1 source) Penicillins Drug allergy (disorder) 03-23-20 23 [facility] Repository Medications Current Medications Medication Drug Class(es) [...] day(s), # 120 cap(s), Refills(s) 11, Pharmacy: [facility]/pharmacy #[id number], 170, cm, 05/05/21 14:15:00 EDT, Height/Length Dosing, 83.1, kg, 05/05/21 14:15:00 EDT, Weight Dosing Start Date: 05/05/21 Stop Date: 04/30/22 Status: Ordered Start: 09-20-2020 take 2 capsules by m outh four times daily Bentyl 10 mg Cap 20 mg = 2 cap(s), Oral, QID, # 20 cap(s), Refills(s) 0, Pharmacy: [facility]/pharmacy #[id number], 170, cm, 09/20/20 16:03:00 EST, [...] weeks, then 2 times weekly for maintenance, [facility]/pharmacy #[id number], 170, cm, 02/16/24 9:10:00 EDT, Height/Length [...] day(s), # 90 tab(s), Refills(s) 0, Pharmacy: [facility]/pharmacy #[id number], 170, cm, 01/28/22 13:40:00 EDT, [...] TID, # 120 tab(s), Refills(s) 0, Pharmacy: [facility]/pharmacy #[id number], 170, cm, 04/13/21 15:38:00 EDT, Height/Length Dosing, 84.4, kg, 04/13/21 15:38:00 EDT, Weight Dosing Start Date: 04/13/21 Status: Ordered Start: 04-13-2018 take 1 tablet by ana th four times daily Reglan 10 mg Tab 10 mg = 1 tab(s), Oral, QID, # 120 tab(s), Refills(s) 0, Pharmacy: [facility]/pharmacy #[id number], 170, cm, 07/22/22 14:33:00 EST, [...] pain, # 20 tab(s), Refills(s) 0, Pharmacy: [facility]/pharmacy #[id number], 170, cm, 02/19/23 0:56:00 EDT, [...] day(s), # 90 cap(s), Refills(s) 1, Pharmacy: [facility]/pharmacy #[id number], 170, cm, 04/14/22 14:53:00 EDT, [...] Daily, # 90 cap(s), Refills(s) 3, Pharmacy: [facility]/pharmacy #[id number], 170, cm, 01/11/22 9:17:00 EDT, Height/Length Dosing, 83, kg, 01/11/22 9:17:00 EDT, Weight Dosing Start Date: 01/11/22 Status: Ordered omeprazole 40 mg Cap-DR (1 source) Start: 2 End: 2 take 1 capsule by mouth once daily omeprazole 40 mg Cap-DR 40 mg = 1 cap(s), Oral, Daily, X 90 day(s), # 90 cap(s), Refills(s) 0, Pharmacy: [facility]/pharmacy #[id number], 170, cm, 01/28/22 13:40:00 EDT, [...] by mouth twice daily. polyethylene glycol 3350 63454 mg powder for oral solution (1 source) [...] ER Active Vitamin D (2 sources) Start: 02-16-2024 Vitamin D International_Un it, Oral, qWeek, Refills(s) 0 Start Date: 02/16/24 Status: Ordered Zofran ODT 4 mg Tab-Dis (10 sources) Start: 09-20-2020 take 1 tablet by mouth every six hours as needed for nausea Zofran ODT 4 mg Tab-Dis 4 mg = 1 tab(s), Oral, q6hr, PRN Nausea/Vomiting, # 12 tab(s), Refills(s) 0, Pharmacy: [facility]/pharmacy #[id number], 170, cm, 09/20/20 16:03:00 EST, Height/Length Dosing, 87.5, kg, 09/20/20 16:03:00 EST, Weight Dosing Start Date: 09/20/20 Status: Ordered Completed/Discontinued Medications Medication Drug Class(es) Dates Sig (Normalized) Sig (Original) acetaminophen 325 mg / HYDROcodone bitartrate 5 mg oral tablet (6 sources) Opioid Agonist Start: 06-21-2019 End: 02-15-2023 take 1 tablet by mouth every six hours Hydrocodone-Acetami nophen ([place]) 5-325 mg Tablet Discontinued 1 TAB PO Q6H June 21, 2019 12:00am February 15, 2023 9:46am Start: 11-12-2018 End: 01-30-2019 take 1 tablet by mouth every four to six hours Hydrocodone-Acetaminophen ([place]) 5-325 mg tablet Discontinued 1 TAB PO [...] 05-10-2019 Chronic Other aftercare (1 source) Other long-term (current) drug therapy; Translations: [OTH UNDERCOATER CURRENT DRUG THERAPY] Onset: 11-30-2022 Episodic Other [...] Name Value Interpretation Reference Range Facility Reminderson 04-09-2024 Reminders Reminders From: Ani Jackson To: EU - Administrative; Sent: 02/16/2024 09:54:18 EDT Show up: 03/05/2024 09:54:00 EDT Subject: Ambulatory Reminder Due Date/Time: 05/20/2024 09:54:00 EDT Reminder/Recall Patient needs scheduled for a 3 month f/u with AO in [place], due back mid May. M FOR PATIENT TO CALL AND SCHEDULE APPT Pt called back and scheduled appt. Barbie [facility] Office Visiton 03-19-2024 Follow-up visit [id number] Marly Cardoso 1970 F Date Provider Department Center 03/19/2024 [id number] KINCAID MICHAEL Macario [facility] Family History Problem Relation Age of Onset Heart attack Father Family Status - Relation Status Age at Father Level of Service:51606 [place] OFFICE/OUTPATIENT ESTABLISHED MOD MDM 30 MIN Normal [facility] Coding Summary.on 02-25-2024 Coding Summary. JWHNVuft30YPl3rPd+PG hlYWQ+P C0RWCJsR81cmMGvxA2xI1UWERoS XrfeFSIACPwIGmPvliHdYM3jdRF jZXJu IC8+HA8pNZMcEuhgsHGej1M1hAC 3O59fym2zMCulbDK3ZDGvAgJxxl nfo8qwrBl0YGwyDpbcCfOn DYEmpB13BRQ9dB07Lb66mLGxdOT ky2ayoZm4XhAuDYEcDIB9lUkrIT ejb2PrKDMnU16ehBJqf4C0 IHMreXzxeKEhKdZylGI3wN2eWBo ninhin2kcszabHpl4fh24nBZlr3 A0eCT8U1UwwrX8YEZtbLOg NoqfdVUQoN2nvvlgn4lualrxSqO oJBYsHWz7JWi8PUZypPxrXmHwKY 04SJT9YUDyxqJwL4BfCJJb fWowAfU4t5Z0Co1ET2TEHhdtH0B NTUFSWTwvdGQ+ZX81po02B5AoDn kwQfj8HDWbMRL4mJN5xU4i DBHmZXocx8L1kHY8E3YtivAxil7 wl9gdWYZtFHnbX52xqTIsm4N0UY UuuEA7GGBfjLyjMhQucL10 Oyc+QNWbrKpun3LfTglym6cew9x xjOa2SuxiDDGdclVhbDobXCA5a5 CuCb5qONBouYK7nBF0nF1b NtNvKeQ4RCfrQ694KqXdcBLfKcn aY09oZ5EqbQR+KQNdKmn1MMPztE mvID6oV0XiVLZgcmmowYWg gKnbYI5fIRSxbpzbJRMbqV8fDOB iG8p5ZzRfOuC9WUscG0VyIECxvc ybSq22nO9zSaItNfM3XHag I0HkxuW5MTWoiROgMBaqUQQ6J48 as5B7FEPjUQSlFQZ4eJL1oF0bsR lnbjogbGVmdDsgdmVydGlj PUqpUJhgR476HYZsfNewDrLzIIa uZyBEYXRlOiAgMDYvMjIvMjAyND wvdGQ+CLNlJVF8eKqmZVFq iFVgDUedJh2dhHraxJqsWT5dUQV lmvxtSCVtkO2xTFPisWYnwCkcQJ 1oUXEaormzn621KaNoZPR2 LGEhwJUvV8NtdO3uWkDuZZGoXIV jB8QwtRVqVKxdQ564EGvbJaB6UW WxevDrS7DoKAZmmXweXqQ9 j8H0Hv7Vy4ZhsjctI2UrwIUcNkP xHzwzKDv8T1SrOwxkoJE+PC90YW BmWU41ZWz7ZVI8vCufCUwx LQXuS0BiwO0kLuGyRAAaNHDhBvf +PHRhYmxlIHdpZHRoPScxMDAlJy PzxOevHX3fUg1cQJTtHNNs gHllmJEyGdUet9fnVLTlFMdjGK2 usXpnN7JnlDJ9NJLxs1o6Vl18G7 5kV4AzjQR+FCIpqUB1bGC1 mO4eFbCiJzB3HKbyN555RnEydTK bFatjl6wuf1vdaZk4CqN0RBPwhe JgiOfmGRO6q1DbYq55Y24n IHdpZHRoPSIxNSUiIHZhbGlnbj0 neS5pWh3+JODxfUP5dBU5hT8wBk MyYrK5SHvsC050WeAtbHQw Npayo3pgo7ipiOt1TlDuGIIfpcP whRjnWSY2x2PuDv09O5XvaNozf8 HtUwn5nl83pPStc2H5yAX8 S4DbJQPkwifevRTwdWikJT7dMAK sbvmoWHCnrC5wUAWbD1c5JmZrAw N1NFzcN2XllpI4APKmsHEm HRGtnVVNqJ3qorpxw0nquxamWpF iDIAeGOt0FZn1XYJxtUhrXwTnSS Z9FxP7QEZ9rHDxoR0wfVsl uustlH4nHmv+KWD7xFKqqYYOCB3 lOjwvdGQ+EKWmYOF2wMymRMmqPB OdjZ9tUNQdQ0q0GsAdMdD6 DIteB6EpokG9VFYxxJHvOIMcnNN QoR4ynbgsz6nlbvxlMxOvSVSsLH i0BOr0OJKisNpqKsEuIZJ2 YcI7SVI7sIWinK0wvAxudhterZ1 wOyc+NmqloHouJKP6MAj2H5EuVr b9OFXxoPoiZI5hoRPwTDpx Nf9ueGmozKksAT3hRAIaispsf16 4KsWkk7msHJTmwKEaCZzsYYU4M7 3sv7C8MIFoOYMaKYH2eHU0 oN9phMqkrjvrrRJwzOnnfuIjqLw iQTkhKBbeJ880RXOwhKxbHxYvGX v6W6EuVgj8KHAlwUkcKN3k dFFfMQinTe5fhXijkMfuEF6wZRD tfwgdk244GfPlx5fyNBIwiFIfER lrCRF5I65qg0F9ZNOmBRHk ZFZ7bXR8dF6gsQnbrjgvySTinGs eyePqhBogZJtzTLdeO894QLQwsJ rdCpYooWl9G8LiDsq4ZDVo oGplYK8zdMUdQLxbUf4ndGsfkVs bUJ0aBXOfxxayb089EnShk9zwKH QoaMLxWCffNOV3A17hr1V3 VQPmTICvOAD1eUD4rC5qkAvpgtu gbGVmdDsgdmVydGljYWwtYWxpZ2 46IHRvcDsnPlBhdGllbnQg AEdbKOh1B6BpHjsciEY+DS70RZQ bXI28xFPbwPByw9lyzTg2EnGnDI ZwOHZ7sXfyVTdac6PdOHBr L40fxXPwf9Y1NEMalQxnsYCuVsA byWB0iV8tVBbxvyouq9aanuufRa uyy1zihp32yG08F62bJTuo IJNqFYKfNVKwJEXefQqpke7lpQ0 wIi8+WHRymJW6oDQ0jT0oZSEqPc T6ZGmrG181IoYjbIUoUuou k4ejy3rmrEc4RkV9VGAobdJalCs pZWW3l9RvRd97D71lVFhpTKTmKR PpGJZkEYJheQexcw3ngZ3l Ii8+UJPcwNW5oBK9oC3hEoGrWpE 6MQvjF720NuJnbBDzYajiQ71hC0 JvdXA+BAZtNso8AMCflAme VC6jaOJhTItoVt9jBXF2XtQkBzB iNJjbZ3QuOVWllmyedprbbMA8YO BvYIYfnW93Kb7hxTnuSDTk tIKKmU6rnejkk4ovjuvwBhKfXWA qAMv8MOd2NJZywFuqOkBmFKB1Vj A1WVQ8kTAioI3deDtiqjpp iW4lY8QkATNozfdyYh08zF0lNhZ cWfU4AFdyOto+Q0DNWJutIFZCVV hZPL4MAGIHQG20MV14eULa q3R5qJZ2Q1XiVDIlouirstsqtJY 4RTOaGPBqoW22qQTdCXkwRj2yf8 C0q670IFSjOYYmjR18Fu1q oInwAMTqjUYVfZ9mqwwya4iviiw xMcBoLGSpEUa7OQs2PSMfrWeyGg GwKOP3RzO1OTO6wGAjbE3s pUfndatxxY5wJgg+MDkvMjMvMTk 3MDwvdGQ+TETaJWT8yKrvBQoiAB IxlC9gFBMxW9f9JyJgYnD2 HWilC7FpFFUlezolXl97gY1fAvO mOfS8HGbkD4LxkyM2ZFLylZYxQJ vyLRQ8X91su7T8POQpMHDw MQA9hNA7gG8acJgspflnnNKyzEn ymuYdwQfrEJjfGAakP229TYFrdH eiXrFjSUxvAYIhRT75GY01 zWCgk5X0bMB5Q0UrMLZpvnbtswg zkFP4KPFlPBElvN87gEYpPCfgAg 5ak8B9j383WLQaNPAijB30 Hs6miIshPVSvvTAAhP2ppxxxi5p qgmglHiWzOSZuYMx2DIn9EPGalV svBqNuZAD3LjK1ILI6qZBi pD3bkUynspmtmG0lPwv+RmVtYWx mMR13FC79aEKek4O9fBU0P9CmPK DbazggwqmytVA1UTKcBGFx iM27uLAjTLfbXv2xz2G0i458RBV lXKEieE14Qz0jbXrwMTSgwCZCqY 6pmodae3bunkbgDfVtGRVs YNf8RBp3MOXduQdlRcEgUKD6OkW 7NHI3oFXljZ2opCditurgpR4qMw c+IQPnFTXtz8Mqn1PfWC08 ZJ40P9OwNgsuzOVsrVM+PHRhYmx lIHdpZHRoPScxMDAlJyBzdHlsZT 9oHi9qEGHyAJKgwHgqiUQo HkMyv0buHTSuMNrnRJ3ggKqiJ9R ruUH9ITXsn6k5Wu33W26nN2ReyF A+CZXikUS9zYF7uC6gTdDv DnZ9TMtdF291VjUugGFlClrjw2w gl4ublGg1OgKwAFBbvsVfvYevFD Y5v2LvJk18L91dBQoqTTVh BFWjBJRrROYzeDcdxq1xuT9vBb3 +JITcgDQ7tJH7xW1tUkPtKjC1WQ egJ478MuCgbKWwTjqxT54t W4KehWP+LXPnWky6AYTamSsuSM2 rvSLcCZukPn3uENP5ThCzIaIqMF cwR8WlITMpdzscmdeyoKL6 QOKcUAZrfJ73Th4ikUffYg6mJYK uTDG6LXXdyMKxW6StzV5qKeKgDI NyFPIsE4YizSYoZJbuP362 MJzzZrW9WTDxwzZvC8IwJKEayVf yXqY0e9C3Ph8FeUveoWCiGD0jRx KdNNi8K7HyTpq2XMRomWpi WS9ctABvYQgtNk4bbUybaVfoRE2 iDMGtksjqn840IlZtn3prHIZimW KoQEkyLSE5G29mc4V2SXPz UWJhEFU3oPJ6kU9grMhhmgldiIZ vsTjqlzIfcEqqZPlaVWhaT008VW EidLpbQiUPHbt3O3OcVvh3 CPProMlfBY5icSEiZDbsXs0ezWu oaKthZX3bTGBotfxsy879CbScq0 chWWFluVKqWSahTNI2V88w m5K9VFBtWTTlOHM6lLE2cR9mwBc nbjogbGVmdDsgdmVydGljYWwtYW rhN104SETiaXcrQm8HGfo6 D0HbQte4JVIfdDadXM2ecHYxWNz vFq0vyRhafKpjYT9wCKMsgnhet1 25VvYvb8ofHPVjsGPgXYws KHD9X26qb5X7GXXwTDMgLSU0eQU 8nI5roPhsivogaQYhiKyluqObbC dqYAkdKMbdR534UKFwkRwx PlBheWVyOjwvdGQ+OU34uq23K2H ySmorHgo0KOUcFHW1hPR0kR7xKS SpDUysp5X2iHX3D5QotfUi mc3cd9giVEStU (more content not included)... Normal [facility] Patient Educationon 02-21-20 Patient Education Obstetrics and [...] this condition includes: ? Antibiotic medicine. ? Sdsz-zid-ztxbvmq medicines to treat discomfort. ? Drinking enough [...] these instructions at home: Medicines ? Take ygel-ysb-qsrhsnp and prescription medicines only as told by [...] Document Revie (more content not included)... Normal [facility] Urology Office/Clinic Noteon 02-21-2024 Urology Office/Clinic Note [...] with voice recognition artificial intelligence software, specifically FreshOffice, Moments.me and or Dragon Ambient Experience. Substitutions may have occurred due to the [...] yes avoids baths/hot tubs yes avoids scented [employer] products yes urinates after sexual activity yes [...] help - cranberry, probiotics, and d-mannose. R 01/06/2024 - negative We will start pt [...] of patients. (more content not included)... Normal [facility] Comment on above: Result Comment: Elec tronically Signed By: RUDY Lou APRN, Yolanda Tejada\.br\Date and Time Signed: 02/21/24 23:19 EDT C Urineon 02-18-2024 Bacteria identified Cx Nom (U) Microbiology PROCEDURE: Urine Culture [R1] SOURCE: U CleanCatch BODY SITE: COLLECTED DATE/TIME: 02/16/2024 10:01 EDT RECEIVED DATE/TIME: 02/16/2024 14:33 EDT START DATE/TIME: 02/16/2024 14:33 EDT FREE TEXT SOURCE: Dasha DORAN, HOWIE-Paula, Dasha DORAN, HOWIE-C, Yolanda X Yolanda X FINAL REPORTS Final [...] Locations R1: This test was performed at: [facility], [address] [place] [address], [id number] , , [facility] Comment on above: Performed By: #### 2 [id number] #### [facility] [address] [place] [address] Lab Reportson 02-17-2024 Lab Reports [id number]#1.00TIFF [facility] Lab Reports [id number]#1.00TIFF [facility] Lab Reports [id number]#1.00TIFF [facility] Lab Reports [id number]#1.00TIFF [facility] RAD - Ultrasound Reporton RAD - Ultrasound Report [id number]#1.00TIFF [facility] Screenson 02-17-2024 Screens [id number]#1.00TIFF [facility] URINALYSISOrdered By: SYSTEM SYSTEM on 02-16-2024 Bilirubin Ql (U) Negative Normal Negativemg/ dL [facility] UA Auto SS Clarity (U) Clear (02/16/24 10:01 AM) Normal Clear [facility] UA Auto SS Color (U) Light-Yellow 1 (02/16/24 10:01 AM) Normal Yellow [facility] UA Auto SS Comment on above: Interpretive Data: M icroscopic readings are only performed on those samples that meet specific criteria set forth by [facility]. Epithelial cells.squamous Auto (Urine sed) [#/Area] 0-2 graded/HPF Invalid Interpretation Code FT UA Auto SS Glucose Ql (U) Negative Normal Negativemg/ dL FT UA Auto SS Hemoglobin Auto test strip (U) [Mass/Vol] 1+ mg/dL Invalid Interpretation Code Negativemg/ dL [facility] UA Auto SS Ketones Auto test strip Ql (U) Negative Normal Negativemg/ dL FT UA Auto SS Leukocyte esterase Auto test strip Ql (U) 75 Morgan/uL Morgan/uL Invalid Interpretation Code NegativeLeu /uL FT UA Auto SS Mucus Auto Ql (U) Trace graded/LPF Normal Negati vegra ded/LPF FT UA Auto SS Nitrite Auto test strip [...] AM) Invalid Interpretation Code 1.005 - 1.030 [facility] UA Auto SS Urobilinogen (U) [Mass/Vol] Negative Normal Negativemg/ dL [facility] UA Auto SS WBC Auto (Urine sed) [#/Area] 0-5 graded/HPF Normal 0-5graded/H PF FT UA Auto SS URINALYSISOrdered By: Kimberly Santos on 02-16-2024 UA Spec Desc Clean Catch (02/16/24 10:01 AM) Normal [facility] UA Auto SS Urinalysis with Microon 02-03 Bilirubin Ql (U) Negative Normal Negative [facility] Comment on above: Performed By: #### 4 [id number] #### [facility] [address] [place] [address] Clarity (U) Clear Normal Clear [facility] Comment on above: Performed By: #### 4 [id number] #### [facility] [address] [place] [address] Color (U) Light-Yellow Normal Yellow [facility] Comment on above: Result Comment: Micr oscopic readings are only performed on those samples that meet specific criteria set forth by [facility]. Performed By: #### 4 [id number] #### [facility] [address] [place] [address] Epithelial cells.squamous Auto (Urine sed) [#/Area] 0-2 Invalid Interpretation Code [facility] Comment on above: Performed By: #### 4 [id number] #### [facility] [address] [place] [address] Glucose Ql (U) Negative Normal Negative [facility] Comment on above: Performed By: #### 4 [id number] #### [facility] [address] [place] [address] Hemoglobin Auto test strip (U) [Mass/Vol] 1+ mg/dL Abnormal Negative [facility] Comment on above: Performed By: #### 4 [id number] #### [facility] [address] [place] [id number] Ketones Auto test strip Ql (U) Negative Normal Negative [facility] Comment on above: Performed By: #### 4 [id number] #### [facility] [address] [place] [address] Leukocyte esterase Auto test strip Ql (U) 75 Morgan/uL Abnormal Negative [facility] Comment on above: Performed By: #### 4 [id number] #### [facility] [address] [place] [address] Mucus Auto Ql (U) Trace Normal Negative [facility] Comment on above: Performed By: #### 4 [id number] #### [facility] [address] [place] [address] Nitrite Auto test strip Ql (U) Negative Normal Negative [facility] Comment on above: Performed By: #### 4 [id number] #### [facility] [address] [place] [address] pH (U) 5.5 [pH] Invalid Interpretation Code 5.0-9.0 [facility] Comment on above: Performed By: #### 4 [id number] #### [facility] [address] [place] [address] Protein Ql (U) Negative Normal Negative [facility] Comment on above: Performed By: #### 4 [id number] #### [facility] [address] [place] [address] RBC Ql (U) 0-3 Normal 0-3 [facility] Comment on above: Performed By: #### 4 [id number] #### [facility] [address] [place] [address] Specific gravity (U) [Rel density] 1.021 Invalid Interpretation Code 1.005-1.030 [facility] Comment on above: Performed By: #### 4 [id number] #### [facility] [address] [place] [id number] Urobilinogen (U) [Mass/Vol] Negative Normal Negative [facility] Comment on above: Performed By: #### [id number] #### [facility] [address] [place] [address] WBC Auto (Urine sed) [#/Area] 0-5 Normal 0-5 [facility] Comment on above: Performed By: #### 4 [id number] #### [facility] [address] [place] [id number] Type of Urine collection method Clean Catch Normal [facility] Comment on above: Performed By: #### 4 [id number] #### [facility] [address] [place] [id number] Office Visiton 02-15-2024 Follow-up visit [id number] Marly Cardoso 1970 F Date Provider Department Center 02/15/2024 60126-OECRBREDISON YING [facility] Family History Problem Relation Age of Onset Heart attack Father Family Status - Relation Status Age at Father Level of Service:64618 MI OFFICE/OUTPATIENT NEW MODERATE MDM 45 MINUTES Normal [facility] ANES POSTPROC EVALon 023 ANES POSTPROC EVAL HNO ID: [id number] Author: Carlota Jeffrey MD Service: ? Author Type: Anesthesiologist Type: Anesthesia Postprocedure Evaluation Filed: 08/25/2023 5:35 PM Note Text: POST ANESTHESIA EVALUATION NOTE : 1970 Procedure Summary Date: 08/25/23 Room / Location: Gastroenterology Anesthesia Start: 1444 Anesthesia Stop: 1552 Procedure: EGD - THERAPEUTIC, EUS, OR TUBE INTERVENTIONS Diagnosis: Gastroparesis (OTHER) Scheduled Providers: Marques Bradley MD; Carlota Jeffrey MD; Vanessa Mcmillan APRN.CHANNEL ACCOUNT MANAGER Responsible Provider: Carlota Jeffrey MD Anesthesia [...] August 25, 2023 TIME: 5:35 PM CSN: [id number] Normal [facility] ANES PRE-OPon 08-25-2023 ANES PRE-OP HNO ID: [id number] Author: Carlota Jeffrey MD Service: ? Author [...] August 25, 2023 TIME: 11:46 AM CSN: [id number] Normal [facility] HISTORY PHYSICALon HISTORY PHYSICAL HNO ID: [id number] Author: Gavi Bourgeois MD Service: General Surgery [...] DATE: August 25, 2023 TIME: 6:57 AM [facility] NURSING PROGon 08-25-2023 NURSING PROG HNO ID: [id number] Author: Melody Walter RN Service: Nursing Author [...] REFERRAL (RECOMMENDATION): None Electronically Signed By: Melody Waletr RN [facility] NURSING PROG HNO ID: [id number] Author: Pamela Osuna RN Service: ? Author [...] Pamela Navarro RN In Department: GASTROENTEROLOGY Normal [facility] 07-22-2023 CNPN Telephone (GENBMI) CONSTANTINO CARDOSO ([id number]) 1970 F Date Time Provider Department 07/22/23 [...] Encounter Status:Closed by EVELYN BLACK on 07/22/23 [facility] ANES POSTPROC EVALon 023 ANES POSTPROC EVAL HNO ID: [id number] Author: Sly Carter MD Service: ? Author [...] Scheduled Providers: Marques Bradley MD; Amanda Bernard APRN.CHANNEL ACCOUNT MANAGER; Sly Carter MD Responsible Provider: Sly [...] July 14, 2023 TIME: 12:26 PM CSN: [id number] Normal [facility] ANES PRE-OPon 07-14-2023 ANES PRE-OP HNO ID: [id number] Author: Sly Carter MD Service: ? Author Type: Anesthesiologist Type: Anesthesia Preprocedure Evaluation Filed: 07/14/2023 9:19 AM Note Text: ANESTHESIOLOGY DAY OF SURGERY NOTE : 1970 Procedure Information Date/Time: 07/14/23929 Scheduled providers: Marques Bradley MD; Amanda Bernard APRN.CHANNEL ACCOUNT MANAGER; Sly Carter MD Procedure: EGD - [...] none. Vitals Value Taken Time BP 137/87 11/09/23 0834 Pulse 66 07/14/23833 Resp Temp 36.4 [...] July 14, 2023 TIME: 9:11 AM CSN: [id number] Normal [facility] EGD - THERAPEUTIC, EUS, OR T UBE INTERVENTIONSon 07-14-2023 [facility] HISTORY PHYSICALon 3 HISTORY PHYSICAL HNO ID: [id number] Author: Raúl Quintero MD Service: General Surgery [...] medications for this visit. REVIEW OF SYSTEMS: TIE HACKER: Negative for CVA, Negative for TIA Respiratory: [...] July 14, 2023 TIME: 9:40 AM Normal [facility] NURSING PROGon 07-14-2023 NURSING PROG HNO ID: [id number] Author: Mónica Spaulding RN Service: Nursing Author Type: Registered Nurse Type: Nursing Progress Note Filed: 07/14/2023 11:21 AM Note Text: 1121: Dr. Mehrdad Carter paged : Patient Constantino Cardoso in post bed 10: Complaining of 10/10 abdominal pain (gas), mild nausea. Any further orders? Thanks! Mari Spaulding RN BSN Normal [facility] NURSING PROG HNO ID: [id number] Author: Mónica Spaulding RN Service: Nursing Author [...] Electronically Signed By: Mónica Spaulding RN BSN [facility] NURSING PROG HNO ID: [id number] Author: Candace Jaramillo RN Service: ? Author [...] AFFECTING LEARNING: None Electronically Signed By: Candace Jaarmillo RN In Department: GASTROENTEROLOGY Normal [facility] SURGICAL PATHOLOGYon 023 ADDENDUM 1: [facility] Comment on above: Order Comment: Speci men Type: TISSUE SPECIMENOrdering Facility: [facility] Address: [address], [place] [address] Result Comment: Give n the background of chronic gastritis a Helicobacter pylori immunostain was performed on block A and is negative for Helicobacter pylori organisms. AEB 07/20/2023 Laboratory Developed Test (LDT) Disclaimer: Performance characteristics of immunohistochemical, immunofluorescent and chromogenic in-situ hybridization tests have been determined by the performing laboratory within [facility]???s [facility] Pathology and Laboratory Medicine [place] ([facility], [facility], [facility], [facility], [facility], [facility], or [facility]) in a manner consistent with CLIA requirements. [...] AM Performed By: #### S ####[facility] LABIA [id number] [address] CASE REPORT Normal [facility] Comment on above: Order Comment: Speci men Type: TISSUE SPECIMENOrdering Facility: [facility] Address: [address] [place] [address] Result Comment: Surg [facility] Pathology Report Case: [id number] Authorizing Provider: Marques Bradley MD Collected: 07/14/2023 10:42 AM Ordering Location: Gastroenterology Received: 07/14/2023 07:34 PM Pathologist: Marilou Zacarias MD Specimen: STOMACH BIOPSY, R/O H.Pylori Performed By: #### S ####[facility] LABIA [id number] [address] OF [place] DIAGNOSIS COMMENT Immunohistochemical stain for Helicobacter pylori is pending and will be reported as an addendum. Normal [facility] Comment on above: Order Comment: Speci men Type: TISSUE SPECIMENOrdering Facility: [facility] Address: [address] [place] [address] Performed By: #### S ####[facility] LABCLIA [id number] [place] [address] [place] FINAL DIAGNOSIS Normal [facility] Comment on above: Order Comment: Speci men Type: TISSUE SPECIMENOrdering Facility: [facility] Address: [address] [place] [address] Result Comment: Velma james, biopsy: - Chronic inactive gastritis. See comment. AEB/dkm 07/18/2023 Performed By: #### S ####[facility] LABCLIA [id number] [address] [place] FINAL PERFORMING LAB Normal [facility] Comment on above: Order Comment: Speci men Type: TISSUE SPECIMENOrdering Facility: [facility] Address: [address] [place] [address] Result Comment: Diag nostic interpretation performed at [facility], [address] [place] [address] CLIA# [id number] Direct Sales Consultant: Maurisio Ritchie M.D. Performed By: #### S ####[facility] LABIA [id number] [address] [place] GROSS DESCRIPTION Normal [facility] Comment on above: Order Comment: Speci men Type: TISSUE SPECIMENOrdering Facility: [facility] Address: [address] [place] [address] Result Comment: [place]. Maria C JAMES BIOPSY Received in formalin are two pieces of hager, soft tissue aggregating to 0.5 x 0.2 x 0.2 cm. Totally submitted in one cassette. Two Gross examination performed at [facility], [address] [place] [address] July 14, 2023 11:10 PM Performed By: #### S ####[facility] LABCLIA [id number] [place] [address] [place] Lipase Levelon 06-06-2023 Lipase [Catalytic activity/Vol] 33 U/L Normal 13-58 [facility] Comment on above: Performed By: #### 2 [id number] #### [facility] [address] [address] REJIAlayna 05-27-2023 CNPN Telephone (GENBMI) CONSTANTINO CARDOSO ([id number]) 1970 F Date Time Provider Department 05/27/23 [facility] During your visit today, we recorded [...] obesity (HCC) [E66.01] 04/28/2018 Encounter Status:Closed by ASHLEEDOUGEVELYN Billy on 05/27/23 [facility] NM GASTRIC EMPTYING SOLIDon 05-26-2023 NM GASTRIC EMPTYING SOLID * * *Final Report* * * DATE OF EXAM: May 26 2023 11:11AM [facility] 0017 - NM GASTRIC EMPTYING SOLID / [...] RATE OF GASTRIC EMPTYING OF SOLID MEAL. Head Banquet Waiter/Waitress: MELINDA Transcribe Date/Time: May 26 2023 11:18A Dictated by : SILVANO WELSH MD This examination was interpreted and the report reviewed and electronically signed by: SILVANO WELSH MD on May 26 2023 11:18AM EST [id number] [facility] CNNURSEon 05-25-2023 CNNURSE Nurse Visit (GASTMN) CONSTANTINO CARDOSO ([id number]) 1970 F Date Time Provider Department 05/25/23 8:30 AM NURSE GI LAB 2 GASTMN During your visit today, we recorded the following information about you: Pedro Gonzalez LPN 05/25/2023 4:15 PM Signed Name: Constantino Cardoso CCF#: [id number] Date: 05/25/2023 ESOPHAGEAL MANOMETRY TEST Indication: Nausea [...] .Pedro Gonzalez LPN Referring Provider: MARQUES BRADLEY [[id number]] Allergies As of Date: 05/25/2023 Noted Allergy Reaction FLEXERIL (CYCLOBENZAPRINE) 04/28/2018 7 - Swelling PENICILLIN 04/28/2018 7 - Swelling Date Reviewed: 05/06/2023 Reviewed by: Judy Michaels MA - Fully Assessed Reason for Visit: Procedure [88] Cmt: Manometry Esophageal Visit Diagnosis:Nausea [R11.0] Order(s):MANOMETRY ESOPHAGEAL [02707QRN] Order #: [id number] Prescriptions as of 05/25/2023 - dicyclomine (BENTYL) [...] Encounter Status:Closed by PEDRO GONZALEZ on 05/25/23 [facility] Tele[facility] (GENBMI) CONSTANTINO CARDOSO ([id number]) 1970 F Date Time Provider Department 05/16/23 [...] Encounter Status:Closed by EVELYN BLACK on 05/16/23 [facility] CNOVon 05-06-2023 CNOV Office Visit (GENBMI ) CONSTANTINO CARDOSO ([id number]) 1970 F Date Time Provider Department 05/06/23 [...] for internal providers or letter via the [employer] for external providers. Chief Complaint: [...] Time: 8:15 AM Referring Provider: IMER CHERRY [[id number]] Allergies As of Date: 05/06/2023 Noted Allergy Reaction (more content not included)... Normal [facility] CONSTANTINO CARDOSO ([id number]) 1970 F Date Time Provider Department 05/02/23 EVELYN BLACK During your visit today, we recorded the following information about you: Evelyn Black, RN 05/04/2023 1:55 PM Addendum BMI SPECIALTY CARE COORDINATION TELEPHONE ENCOUNTER Chief complaint AND duration dysphagia. Type of procedure: hernia repair hiatal with Dr. MORTENSEN in [place] February of 2019. Sending OP notes Nursing assessment (subjective/objective) . pain in chest area and getting worse, hard to breathe c/o nausea and oral intolerance, using miralax for BM Went to [place] ED March 2023 who told her she needed a stent in her heart..but her c/o were difficulty swallowing and sent pt home and referred her to [facility] and was admitted for almost a [...] ago. Saw Dr Fab rosenbaum surgery in 2017 where a RYGB with HHR was recommended. Pt never returned and had HHR a year later @ OSH in [place] Recommendation: appt after records obtained, encouraged small [...] Encounter Status:Closed by EVELYN BLACK on 05/02/23 [facility] Magda 04-26-2023 REJIN Telephone ([facility]) CONSTANTINO CARDOSO ([id number]) 1970 F Date Time Provider Department 04/26/23 EVELYN BLACK During your visit today, we [...] Encounter Status:Closed by EVELYN BLACK on 04/26/23 [facility] 04-18-2023 CNPN Telephone (GENBMI) CONSTANTINO CARDOSO ([id number]) 1970 F Date Time Provider Department 04/18/23 [...] Ma - Fully Assessed Reason for Visit: Web Marketing Intern - Other [3602] Prescriptions as of 04/18/2023 [...] Encounter Status:Closed by EVELYN BLACK on 04/18/23 [facility] (GASTSP) CONSTANTINO CARDOSO ([id number]) 1970 F Date Time Provider Department 04/07/23 GUILLERMO MARTINEZ [facility] During your visit today, we recorded [...] Encounter Status:Closed by YANCY LOPEZ on 04/07/23 [facility] NM gastric emptying studyon 03-31-2023 NM gastric emptying study [facility] [place] [address] Nuclear Medicine Report Signed Patient: Constantino Cardoso MR#: [id number] : 1970 Acct:[id number] Age/Sex: 52 / F ADM Date: 03/26/23 Loc: Room: [address] [place] [address] Type: ADM IN Attending Dr: Deann Montalvo [...] Samuel Stone M.D.03/31/2023 10:03 AM Dictation Location: [place] [address] Transcribed By: [facility] 03/31/23 100 Dictated By: Samuel Stone DO 03/31/23 0956 Signed By: 03/31/[address] [facility] Comprehensive Metabolic Pane miranda 03-29-2023 Albumin [Mass/Vol] 3.8 g/dL Normal 3.5-5.7 [facility] Comment on above: Performed By: #### C STELLA, CMP #### [address] Albumin/Globulin [Mass ratio] 1.4 {ratio} Normal [facility] Comment on above: Performed By: #### C STELLA, CMP #### [facility] [address] ALP [Catalytic activity/Vol] 102 U/L Normal 34-104 [facility] Comment on above: Performed By: #### C STELLA, CMP #### [address] ALT [Catalytic activity/Vol] 10 U/L Normal 7-52 [facility] Comment on above: Performed By: #### C STELLA, CMP #### [address] Anion gap [Moles/Vol] 10.4 mmol/L Normal 6.0-15.0 [facility] Comment on above: Performed By: #### C STELLA, CMP #### [address] AST [Catalytic activity/Vol] 14 U/L Normal 13-39 [facility] Comment on above: Performed By: #### C STELLA, CMP #### [address] Bilirubin [Mass/Vol] 0.5 mg/dL Normal 0.3-1.0 [facility] Comment on above: Performed By: #### C STELLA, CMP #### [address] Calcium [Mass/Vol] 9.0 mg/dL Normal 8.6-10.3 [facility] Comment on above: Performed By: #### C BCNO, CMP #### [address] Chloride [Moles/Vol] 103 mmol/L Normal 98-107 [facility] Comment on above: Performed By: #### C STELLA, CMP #### [facility] [address] CO2 [Moles/Vol] 28.4 mmol/L Normal 21.0-31.0 [facility] Comment on above: Performed By: #### C BCTED, CMP #### [facility] [address] Creatinine [Mass/Vol] 0.67 mg/dL Normal 0.60-1.20 [facility] Comment on above: Performed By: #### C STELLA, CMP #### [facility] [address] Creatinine Clr Calc Pharmacy 106.[address] [facility] Comment on above: Result Comment: PERF ORMED BY: [place] [address] PATHOLOGIST REGULATOR OPERATOR ROOSEVELT KEYES M.D. Performed By: #### C STELLA, CMP #### [facility] [address] GFR/1.73 sq M.predicted MDRD (S/P/Bld) [Vol rate/Area] mL/min/{1.73_m2} [facility] Comment on above: Performed By: #### C STELLA, CMP #### [facility] [address] Globulin (S) [Mass/Vol] 2.7 g/dL [facility] Comment on above: Performed By: #### C BCTED, CMP #### [facility] [address] Glucose [Mass/Vol] 96 mg/dL Normal 70-100 [facility] Comment on above: Result Comment: [place] Glucose Reference Range is dependent on time and content of last meal. Glucose of more than 200 mg/dL in a nonstressed, ambulatory subject supports the diagnosis of Diabetes Mellitus. ADA recommended reference range Performed By: #### C BCTED, CMP #### [facility] [address] Potassium [Moles/Vol] 3.8 mmol/L Normal 3.5-5.1 [facility] Comment on above: Performed By: #### C BCNO, CMP #### [facility] [address] Protein [Mass/Vol] 6.5 g/dL Normal 6.4-8.9 [facility] Comment on above: Performed By: #### C BCNO, CMP #### [facility] [address] Sodium [Moles/Vol] 138 mmol/L Normal 136-145 [facility] Comment on above: Performed By: #### C BCNO, CMP #### [facility] [address] Urea nitrogen [Mass/Vol] 8 mg/dL Normal 7-25 [facility] Comment on above: Performed By: #### C USAMANO, CMP #### [address] [place] esophagus ugion 3 [place] esophagus ugi [facility] [place] [address] [place] [address] Fluoroscopy Report Signed Patient: Constantino Cardoso MR#: [id number] : 1970 Acct:[id number] Age/Sex: 52 / F ADM Date: 03/26/23 Loc: Room: [address] [place] [address] Type: ADM IN Attending Dr: Deann Montalvo MD Copies to: MD Deann Blue MD Ordering Provider: Renny Gan MD Date of Service: 03/29/23 FL/FL esophagus ugi: NAUSEA DOUBLE CONTRAST UPPER GI SERIES CLINICAL HISTORY: Nausea vomiting. History of Ramiro fundoplication. COMPARISON: None TECHNIQUE: Double contrast upper GI series was performed. Cumulative Air Kerma in mGy: 305.03 mGy FINDINGS: Hose Handler image demonstrates no acute findings. The esophagus [...] Bateman Jr., D.O.03/29/2023 1:23 PM Dictation Location: [place] [address] Transcribed By: [facility] 03/29/23 1323 Dictated By: Tiburcio Bateman Jr, DO 03/29/23 1317 Signed By: 03/29/23 1323 Normal [facility] Hemogram CBC Without Diffon 03-29-2023 Erythrocyte distribution width (RBC) [Ratio] 13.4 % Normal 11.9-15.3 [facility] Comment on above: Performed By: #### C BCNO, CMP #### [facility] [address] Hematocrit (Bld) [Volume fraction] 35.4 % Normal 34.0-46.4 [facility] Comment on above: Performed By: #### C BCNO, CMP #### [facility] [address] [place] [address] [place] Hemoglobin (Bld) [Mass/Vol] 12.0 g/dL Normal 11.8-15.4 [facility] Comment on above: Performed By: #### C BCNO, CMP #### [facility] [address] [place] [id number] [place] MCH (RBC) [Entitic mass] 29.2 pg Normal 24.7-34.3 [facility] Comment on above: Performed By: #### C BCNO, CMP #### [facility] [address] [place] [id number] [place] MCV (RBC) [Entitic vol] 86.0 fL Normal 80-100 [facility] Comment on above: Performed By: #### C BCNO, CMP #### [facility] [address] Mean Corpuscular HGB Conc 33.9 g/dL Normal 32.0-35.0 [facility] Comment on above: Performed By: #### C BCNO, CMP #### [facility] [address] [place] [address] [place] Platelet mean volume (Bld) [Entitic vol] 7.6 fL Normal 6.3-10.7 [facility] Comment on above: Result Comment: PERF ORMED BY: [place] [address] PATHOLOGIST REGULATOR OPERATOR ROOSEVELT KEYES M.D. Performed By: #### C BCTED, CMP #### [facility] [address] Platelets (Bld) [#/Vol] 288 10*3/uL Normal 150-450 [facility] Comment on above: Performed By: #### C BCTED, CMP #### [facility] [address] [place] [address] [place] RBC (Bld) [#/Vol] 4.11 10*6/uL Normal 3.60-5.00 [facility] Comment on above: Performed By: #### C BCNO, CMP #### [facility] [address] [place] [address] [place] WBC (Bld) [#/Vol] 6.5 10*3/uL Normal 3.8-11.6 [facility] Comment on above: Performed By: #### C BCNO, CMP #### [facility] [address] [place] [address] [place] XR abdomen min 2Von 03-28-20 23 XR abdomen min 2V [facility] [place] [address] [place] [address] XRay Report Signed Patient: Constantino Cardoso MR#: [id number] : 1970 Acct:[id number] Age/Sex: 52 / F ADM Date: 03/26/23 Loc: Room: 6C0373-9 Type: ADM IN Attending Dr: Deann Montalvo [...] seen. Impression dictated by: Tiburcio Bateman Jr., Jorge.ONeo03/28/2023 12:24 PM Dictation Location: [place] [address] Transcribed By: [facility] 03/28/23 1224 Dictated By: Tiburcio Bateman Jr, DO 03/28/23 1223 Signed By: 03/28/23 1224 Normal [facility] Complete Blood Count Auto Di ffon 03-27-2023 Basophils (Bld) [#/Vol] 0.0 10*3/uL Normal 0.0-0.2 [facility] Comment on above: Result Comment: PERF ORMED BY: [place] [address] PATHOLOGIST REGULATOR OPERATOR ROOSEVELT KEYES M.D. Performed By: #### C BC #### [facility] [address] [place] [address] [place] Basophils/100 WBC (Bld) 0.5 % Normal . [facility] Comment on above: Performed By: #### C BC #### [facility] [address] [place] [address] [place] Eosinophils (Bld) [#/Vol] 0.2 10*3/uL Normal 0.0-0.45 [facility] Comment on above: Performed By: #### C BC #### [facility] [address] [place] [address] [place] Eosinophils/100 WBC (Bld) 4.7 % Normal . [facility] Comment on above: Performed By: #### C BC #### [facility] [address] Erythrocyte distribution width (RBC) [Ratio] 13.6 % Normal 11.9-15.3 [facility] Comment on above: Performed By: #### C BC #### [facility] [address] Hematocrit (Bld) [Volume fraction] 34.1 % Normal 34.0-46.4 [facility] Comment on above: Performed By: #### C BC #### [address] Hemoglobin (Bld) [Mass/Vol] 11.4 g/dL Low 11.8-15.4 [facility] Comment on above: Performed By: #### C BC #### [address] Lymphocytes (Bld) [#/Vol] 1.3 10*3/uL Normal 1.00-4.8 [facility] Comment on above: Performed By: #### C BC #### [address] Lymphocytes/100 WBC (Bld) 32.8 % Normal . [facility] Comment on above: Performed By: #### C BC #### [address] MCH (RBC) [Entitic mass] 28.9 pg Normal 24.7-34.3 [facility] Comment on above: Performed By: #### C BC #### [address] MCV (RBC) [Entitic vol] 86.0 fL Normal 80-100 [facility] Comment on above: Performed By: #### C BC #### [address] Mean Corpuscular HGB Conc 33.6 g/dL Normal 32.0-35.0 [facility] Comment on above: Performed By: #### C BC #### [address] Monocytes (Bld) [#/Vol] 0.3 10*3/uL Normal 0.0-0.8 [facility] Comment on above: Performed By: #### C BC #### [facility] [address] Monocytes/100 WBC (Bld) 7.7 % Normal . [facility] Comment on above: Performed By: #### C BC #### [facility] [address] Neutrophils (Bld) [#/Vol] 2.1 10*3/uL Normal 1.8-7.7 [facility] Comment on above: Performed By: #### C BC #### [address] Neutrophils/100 WBC (Bld) 54.3 % Normal . [facility] Comment on above: Performed By: #### C BC #### [address] NRBC% 0.1 /100{WBC} Normal 0-0.5 [facility] Comment on above: Performed By: #### C BC #### [address] Platelet mean volume (Bld) [Entitic vol] 7.8 fL Normal 6.3-10.7 [facility] Comment on above: Performed By: #### C BC #### [place] [address] [place] Platelets (Bld) [#/Vol] 291 10*3/uL Normal 150-450 [facility] Comment on above: Performed By: #### C BC #### [facility] [address] RBC (Bld) [#/Vol] 3.97 10*6/uL Normal 3.60-5.00 [facility] Comment on above: Performed By: #### C BC #### [address] WBC (Bld) [#/Vol] 3.9 10*3/uL Normal 3.8-11.6 [facility] Comment on above: Performed By: #### C BC #### [facility] [address] [place] [address] Comprehensive Metabolic Pane miranda 03-27-2023 Albumin [Mass/Vol] 3.5 g/dL Normal 3.5-5.7 [facility] Comment on above: Performed By: #### H EPATIC, CBC, BMP, LIPASE #### [address] Albumin/Globulin [Mass ratio] 1.4 {ratio} Normal [facility] Comment on above: Performed By: #### H EPATIC, CBC, BMP, LIPASE #### [address] ALP [Catalytic activity/Vol] 91 U/L Normal 34-104 [facility] Comment on above: Performed By: #### H EPATIC, CBC, BMP, LIPASE #### [address] ALT [Catalytic activity/Vol] 10 U/L Normal 7-52 [facility] Comment on above: Performed By: #### H EPATIC, CBC, BMP, LIPASE #### [address] Anion gap [Moles/Vol] 6.9 mmol/L Normal 6.0-15.0 [facility] Comment on above: Performed By: #### H EPATIC, CBC, BMP, LIPASE #### [address] AST [Catalytic activity/Vol] 13 U/L Normal 13-39 [facility] Comment on above: Performed By: #### H EPATIC, CBC, BMP, LIPASE #### [address] Bilirubin [Mass/Vol] 0.5 mg/dL Normal 0.3-1.0 [facility] Comment on above: Performed By: #### H EPATIC, CBC, BMP, LIPASE #### [address] [address] [place] Calcium [Mass/Vol] 8.6 mg/dL Normal 8.6-10.3 [facility] Comment on above: Performed By: #### H EPATIC, CBC, BMP, LIPASE #### [facility] [address] Chloride [Moles/Vol] 109 mmol/L High 98-107 [facility] Comment on above: Performed By: #### H EPATIC, CBC, BMP, LIPASE #### [facility] [address] CO2 [Moles/Vol] 28.9 mmol/L Normal 21.0-31.0 [facility] Comment on above: Performed By: #### H EPATIC, CBC, BMP, LIPASE #### [address] Creatinine [Mass/Vol] 0.72 mg/dL Normal 0.60-1.20 [facility] Comment on above: Performed By: #### H EPATIC, CBC, BMP, LIPASE #### [facility] [address] [place] [address] Creatinine Clr Calc Pharmacy 97.[address] [facility] Comment on above: Performed By: #### H EPATIC, CBC, BMP, LIPASE #### [address] GFR/1.73 sq M.predicted MDRD (S/P/Bld) [Vol rate/Area] mL/min/{1.73_m2} [facility] Comment on above: Performed By: #### H EPATIC, CBC, BMP, LIPASE #### [facility] [address] [place] [address] Globulin (S) [Mass/Vol] 2.5 g/dL [facility] Comment on above: Performed By: #### H EPATIC, CBC, BMP, LIPASE #### [facility] [address] [place] [address] Glucose [Mass/Vol] 104 mg/dL High 70-100 [facility] Comment on above: Result Comment: [facility] Glucose Reference Range is dependent on time and content of last meal. Glucose of more than 200 mg/dL in a nonstressed, ambulatory subject supports the diagnosis of Diabetes Mellitus. ADA recommended reference range Performed By: #### H EPATIC, CBC, BMP, LIPASE #### [facility] [address] Potassium [Moles/Vol] 3.8 mmol/L Normal 3.5-5.1 [facility] Comment on above: Performed By: #### H EPATIC, CBC, BMP, LIPASE #### [facility] [address] Protein [Mass/Vol] 6.0 g/dL Low 6.4-8.9 [facility] Comment on above: Performed By: #### H EPATIC, CBC, BMP, LIPASE #### [address] Sodium [Moles/Vol] 141 mmol/L Normal 136-145 [facility] Comment on above: Performed By: #### H EPATIC, CBC, BMP, LIPASE #### [place] [address] [place] Urea nitrogen [Mass/Vol] 10 mg/dL Normal 7-25 [facility] Comment on above: Performed By: #### H EPATIC, CBC, BMP, LIPASE #### [address] Lipaseon 03-27-2023 Lipase [Catalytic activity/Vol] 14.0 U/L Normal 11.0-82.0 [facility] Comment on above: Result Comment: PERF ORMED BY: [place] [address] PATHOLOGIST REGULATOR OPERATOR ROOSEVELT KEYES M.D. Performed By: #### H EPATIC, CBC, BMP, LIPASE #### [address] Magnesiumon 03-27-2023 Magnesium [Mass/Vol] 1.8 mg/dL Low 1.9-2.7 [facility] Comment on above: Performed By: #### H EPATIC, CBC, BMP, LIPASE #### [facility] [address] [place] [id number] [facility] CT angio abdomen pelvison CT angio abdomen pelvis [facility] [place] [address] [place] [address] CT Scan Report Signed Patient: Constantino Cardoso MR#: [id number] : 1970 Acct:[id number] Age/Sex: 52 / F ADM Date: 03/26/23 Loc: Room: [address] [place] [address] Type: ADM IN Attending Dr: Raf Steward [...] Nora Benites M.D.03/26/2023 9:41 AM Dictation Location: [place] [address] Transcribed By: [facility] 03/26/23940 Dictated By: Nora Benites II, MD 03/26/2335 Signed By: 03/26/[address] [facility] CT angio cheston 03-26-2023 CT angio chest [facility] [place] [address] [place] [address] CT Scan Report Signed Patient: Constantino Cardoso MR#: [id number] : 1970 Acct:[id number] Age/Sex: 52 / F ADM Date: 03/26/23 Loc: Room: [address] [place] [address] Type: ADM IN Attending Dr: Raf Steward [...] Nora Benites M.D.03/26/2023 9:34 AM Dictation Location: [facility] Transcribed By: [facility] 03/26/23933 Dictated By: Nora Benites II, MD 03/26/23929 Signed By: 03/26/[address] [facility] Comprehensive Metabolic Pane miranda 03-26-2023 Albumin [Mass/Vol] 3.8 g/dL Normal 3.5-5.7 [facility] Comment on above: Performed By: #### P ORS #### [address] Albumin/Globulin [Mass ratio] 1.6 {ratio} [facility] Comment on above: Performed By: #### P ORS #### [address] ALP [Catalytic activity/Vol] 105 U/L High 34-104 [facility] Comment on above: Performed By: #### P ORS #### [facility] [address] [place] [address] ALT [Catalytic activity/Vol] 11 U/L Normal 7-52 [facility] Comment on above: Performed By: #### P ORS #### [address] Anion gap [Moles/Vol] 9.7 mmol/L Normal 6.0-15.0 [facility] Comment on above: Performed By: #### P ORS #### [address] AST [Catalytic activity/Vol] 14 U/L Normal 13-39 [facility] Comment on above: Performed By: #### P ORS #### [address] Bilirubin [Mass/Vol] 0.4 mg/dL Normal 0.3-1.0 [facility] Comment on above: Performed By: #### P ORS #### [address] Calcium [Mass/Vol] 8.6 mg/dL Normal 8.6-10.3 [facility] Comment on above: Performed By: #### P ORS #### [address] Chloride [Moles/Vol] 107 mmol/L Normal 98-107 [facility] Comment on above: Performed By: #### P ORS #### [address] CO2 [Moles/Vol] 25.3 mmol/L Normal 21.0-31.0 [facility] Comment on above: Performed By: #### P ORS #### [address] Creatinine [Mass/Vol] 0.76 mg/dL Normal 0.60-1.20 [facility] Comment on above: Performed By: #### P ORS #### [address] Creatinine Clr Calc Pharmacy 92.[address] [facility] Comment on above: Performed By: #### P ORS #### [address] GFR/1.73 sq M.predicted MDRD (S/P/Bld) [Vol rate/Area] mL/min/{1.73_m2} [facility] Comment on above: Performed By: #### P ORS #### [address] Globulin (S) [Mass/Vol] 2.4 g/dL [facility] Comment on above: Performed By: #### P ORS #### [address] Glucose [Mass/Vol] 122 mg/dL High 70-100 [facility] Comment on above: Result Comment: [place] Glucose Reference Range is dependent on time and content of last meal. Glucose of more than 200 mg/dL in a nonstressed, ambulatory subject supports the diagnosis of Diabetes Mellitus. ADA recommended reference range Performed By: #### P ORS #### [address] Potassium [Moles/Vol] 4.0 mmol/L Normal 3.5-5.1 [facility] Comment on above: Performed By: #### P ORS #### [address] Protein [Mass/Vol] 6.2 g/dL Low 6.4-8.9 [facility] Comment on above: Performed By: #### P ORS #### [address] Sodium [Moles/Vol] 138 mmol/L Normal 136-145 [facility] Comment on above: Performed By: #### P ORS #### [address] Urea nitrogen [Mass/Vol] 12 mg/dL Normal 7-25 [facility] Comment on above: Performed By: #### P ORS #### [place] [address] [place] Drug Screen,Urineon 03-26-20 23 Amphetamine Screen,Urine Negative Normal Negative [facility] Comment on above: Performed By: #### H EPATIC, CBC, BMP, LIPASE #### [place] [address] [place] Barbiturate Screen,Urine Negative Normal Negative [facility] Comment on above: Performed By: #### H EPATIC, CBC, BMP, LIPASE #### [place] [address] [place] Benzodiazepines Screen,Urine Negative Normal Negative [facility] Comment on above: Performed By: #### H EPATIC, CBC, BMP, LIPASE #### [address] Cannabinoid Screen,Urine Negative Normal Negative [facility] Comment on above: Result Comment: Thes e are unconfirmed results and should not be used for legal purposes. Drug Cut-Off Concentration: AMPH 1000 ng/mL HAWA 200 ng/mL ELSA 200 ng/mL COCM 300 ng/mL OP 300 ng/mL PCP 25 ng/mL THC 20 ng/mL PERFORMED BY: [place] [address] PATHOLOGIST REGULATOR OPERATOR ROOSEVELT KEYES M.D. Performed By: #### H EPATIC, CBC, BMP, LIPASE #### [address] Cocaine Screen,Urine Negative Normal Negative [facility] Comment on above: Performed By: #### H EPATIC, CBC, BMP, LIPASE #### [address] Opiate Screen,Urine Positive High Negative [facility] Comment on above: Performed By: #### H EPATIC, CBC, BMP, LIPASE #### [address] Phencyclidine Screen,Urine Negative Normal Negative [facility] Comment on above: Performed By: #### H EPATIC, CBC, BMP, LIPASE #### [address] ECH echo transthoracicon ECH echo transthoracic [facility] [place] [address] [place] [address] Echocardiogram Signed Patient: Constantino Cardoso MR#: [id number] : 1970 Acct:[id number] Age/Sex: 52 / F ADM Date: 03/26/23 Loc: Room: [address] [place] [address] Type: ADM IN Attending Dr: Raf Steward MD Ordering Provider: Ron Fair MD Date of Service: 03/26/23 ECH/ECH echo transthoracic: chest pain Copies to: MD Holly Lieberman MD, [facility] BSA: 1.9 m2 BP: 155/86 [...] 03/26/23 0909 Signed By: Holly Castro MD, [facility] 03/26/23 1148 Normal [facility] Hepatic Panelon 03-26-2023 Bilirubin,Indirect 0.3 mg/dL Normal [facility] Comment on above: Performed By: #### P ORS #### [facility] [address] Bilirubin.indirect [Mass/Vol] 0.10 mg/dL Normal 0.03-0.18 [facility] Comment on above: Performed By: #### P ORS #### [facility] [address] Lactic Acidon 03-26-2023 Lactate [Moles/Vol] 0.5 mmol/L Normal 0.5-2.2 [facility] Comment on above: Result Comment: PERF ORMED BY: [place] [address] PATHOLOGIST REGULATOR OPERATOR ROOSEVELT KEYES M.D. Performed By: #### L ACTIC, HEPATIC, LIPASE, CMP, HS TROP, MG #### [address] Lipaseon 03-26-2023 Lipase [Catalytic activity/Vol] 8.0 U/L Low 11.0-82.0 [facility] Comment on above: Result Comment: PERF ORMED BY: [place] [address] PATHOLOGIST REGULATOR OPERATOR ROOSEVELT KEYES M.D. Performed By: #### P ORS #### [address] Magnesiumon 03-26-2023 Magnesium [Mass/Vol] 1.8 mg/dL Low 1.9-2.7 [facility] Comment on above: Performed By: #### P ORS #### [address] Porphyrins,Stoolon 3 Porphyrins,Stool Normal [facility] Comment on above: Result Comment: See report. Scanned copy available in EMR. PERFORMED BY: [place] [address] PATHOLOGIST REGULATOR OPERATOR ROOSEVELT KEYES M.D. Performed By: #### P ORS #### [address] Troponin I High Sensitivityo n 03-26-2023 Troponin I High Sensitivity 13.8 pg/mL Normal 0.0-15.0 [facility] Comment on above: Result Comment: PERF ORMED BY: [place] [address] PATHOLOGIST REGULATOR OPERATOR ROOSEVELT KEYES M.D. Performed By: #### H EPATIC, CBC, BMP, LIPASE #### [address] Troponin I High Sensitivity 14.1 pg/mL Normal 0.0-15.0 [facility] Comment on above: Result Comment: PERF ORMED BY: [place] [address] PATHOLOGIST REGULATOR OPERATOR ROOSEVELT KEYES M.D. Performed By: #### P ORS #### [facility] [address] [place] [id number] [facility] Alanine aminotransferase [En zymatic activity/volume] in Serum or PlasmaOrdered By: Pete Thakkar on 03-23-2023 ALT [Catalytic activity/Vol] 11 U/L 7-52 [facility] Albumin [Mass/volume] in Ser um or Plasma by Bromocresol green (BCG) dye binding methoOrdered By: Pete Thakkar on 03-23-2023 Albumin BCG dye [Mass/Vol] 4.1 g/dL 3.5-5.7 [facility] Alkaline phosphatase [Enzyma tic activity/volume] in Serum or PlasmaOrdered By: Pete Thakkar on 03-23-2023 ALP [Catalytic activity/Vol] 115 U/L 34-104 [facility] Aspartate aminotransferase [ Enzymatic activity/volume] in Serum or PlasmaOrdered By: Pete Thakkar on 03-23-2023 AST [Catalytic activity/Vol] 15 U/L 13-39 [facility] Automated erythrocytes count in urine sediment (number/area)Ordered By: Pete Thakkar on 03-23-2023 RBC Auto (Urine sed) [#/Area] 0-1 [HPF] 0-4 [facility] Automated leukocytes count i n urine sediment (number/area)Ordered By: Pete Thakkar on 03-23-2023 WBC Auto (Urine sed) [#/Area] 0-1 [HPF] 0-4 [facility] Basic Metabolic Panelon 03-05 Anion gap [Moles/Vol] 10.1 mmol/L Normal 6.0-15.0 [facility] Comment on above: Performed By: #### H EPATIC, CBC, BMP, LIPASE #### [facility] [address] [place] [id number] [facility] Calcium [Mass/Vol] 9.0 mg/dL Normal 8.6-10.3 [facility] Comment on above: Performed By: #### H EPATIC, CBC, BMP, LIPASE #### [facility] [address] [place] [address] [place] Chloride [Moles/Vol] 111 mmol/L High 98-107 [facility] Comment on above: Performed By: #### H EPATIC, CBC, BMP, LIPASE #### [facility] [address] CO2 [Moles/Vol] 24.5 mmol/L Normal 21.0-31.0 [facility] Comment on above: Performed By: #### H EPATIC, CBC, BMP, LIPASE #### [facility] [address] Creatinine [Mass/Vol] 0.72 mg/dL Normal 0.60-1.20 [facility] Comment on above: Performed By: #### H EPATIC, CBC, BMP, LIPASE #### [facility] [address] Creatinine Clr Calc Pharmacy 105.[address] [facility] Comment on above: Performed By: #### H EPATIC, CBC, BMP, LIPASE #### [facility] [address] [place] [address] [place] GFR/1.73 sq M.predicted MDRD (S/P/Bld) [Vol rate/Area] mL/min/{1.73_m2} [facility] Comment on above: Performed By: #### H EPATIC, CBC, BMP, LIPASE #### [facility] [address] Glucose [Mass/Vol] 79 mg/dL Normal 70-100 [facility] Comment on above: Result Comment: [place] Glucose Reference Range is dependent on time and content of last meal. Glucose of more than 200 mg/dL in a nonstressed, ambulatory subject supports the diagnosis of Diabetes Mellitus. ADA recommended reference range Performed By: #### H EPATIC, CBC, BMP, LIPASE #### [facility] [address] Potassium [Moles/Vol] 3.6 mmol/L Normal 3.5-5.1 [facility] Comment on above: Performed By: #### H EPATIC, CBC, BMP, LIPASE #### [facility] [address] Sodium [Moles/Vol] 142 mmol/L Normal 136-145 [facility] Comment on above: Performed By: #### H EPATIC, CBC, BMP, LIPASE #### [facility] [address] [place] [address] [place] Urea nitrogen [Mass/Vol] 24 mg/dL Normal 7-25 [facility] Comment on above: Performed By: #### H EPATIC, CBC, BMP, LIPASE #### [facility] [address] [place] [address] [place] Basophils Auto (Bld) [#/Vol] Ordered By: Pete Thakkar on 03-23-2023 Basophils (Bld) [#/Vol] 0.1 10*3/uL 0.0-0.2 [facility] Basophils/100 WBC Auto (Bld) Ordered By: Pete Thakkar on 03-23-2023 Basophils/100 WBC (Bld) 1.0 % . [facility] Bilirubin Test strip Ql (U)O rdered By: Pete Thakkar on 03-23-2023 Bilirubin Ql (U) Negative Negative [facility] Bilirubin.direct [Mass/volum e] in Serum or PlasmaOrdered By: Pete Thakkar on 03-23-2023 Bilirubin.direct [Mass/Vol] 0.10 mg/dL 0.03-0.18 [facility] Bilirubin.total [Mass/volume ] in Serum or PlasmaOrdered By: Pete Thakkar on 03-23-2023 Bilirubin [Mass/Vol] 0.3 mg/dL 0.3-1.[address] [facility] [address] abdomen pelvis w conon CT abdomen pelvis w con [facility] [address] [place] [address] [place] [address] CT Scan Report Signed Patient: Constantino Cardoso MR#: [id number] : 1970 Acct:[id number] Age/Sex: 52 / F ADM Date: 03/23/23 Loc: ER Room: Type: [facility] ER Attending Dr: Copies to: Pete [...] Columba Domínguez M.D.03/23/2023 7:47 AM Dictation Location: [place] [address] Transcribed By: [facility] 03/23/23746 Dictated By: Columba Domínguez MD 03/23/2342 Signed By: 03/23/[address] [facility] Calcium [Mass/volume] in Ser um or PlasmaOrdered By: Pete Thakkar on 03-23-2023 Calcium [Mass/Vol] 9.0 mg/dL 8.6-10.3 [facility] Carbon dioxide, total [Moles /volume] in Serum or PlasmaOrdered By: Pete Thakkar on 03-23-2023 CO2 [Moles/Vol] 24.5 mmol/L 21.0-31.0 [facility] Chloride [Moles/volume] in S cristine or PlasmaOrdered By: Pete Thakkar on 03-23-2023 Chloride [Moles/Vol] 111 mmol/L 98-107 [facility] Color Auto (U)Ordered By: Shoaib Thakkar on 03-23-2023 Color (U) Yellow Yellow [facility] Complete Blood Count Auto Di ffon 03-23-2023 Basophils (Bld) [#/Vol] 0.1 10*3/uL Normal 0.0-0.2 [facility] Comment on above: Result Comment: PERF ORMED BY: [place] [address] PATHOLOGIST REGULATOR OPERATOR ROOSEVELT KEYES M.D. Performed By: #### H EPATIC, CBC, BMP, LIPASE #### [facility] [address] Basophils/100 WBC (Bld) 1.0 % Normal . [facility] Comment on above: Performed By: #### H EPATIC, CBC, BMP, LIPASE #### [facility] [address] Eosinophils (Bld) [#/Vol] 0.3 10*3/uL Normal 0.0-0.45 [facility] Comment on above: Performed By: #### H EPATIC, CBC, BMP, LIPASE #### [facility] [address] [place] [address] [place] Eosinophils/100 WBC (Bld) 5.0 % Normal . [facility] Comment on above: Performed By: #### H EPATIC, CBC, BMP, LIPASE #### [facility] [address] Erythrocyte distribution width (RBC) [Ratio] 13.6 % Normal 11.9-15.3 [facility] Comment on above: Performed By: #### H EPATIC, CBC, BMP, LIPASE #### [address] Hematocrit (Bld) [Volume fraction] 35.7 % Normal 34.0-46.4 [facility] Comment on above: Performed By: #### H EPATIC, CBC, BMP, LIPASE #### [address] Hemoglobin (Bld) [Mass/Vol] 12.0 g/dL Normal 11.8-15.4 [facility] Comment on above: Performed By: #### H EPATIC, CBC, BMP, LIPASE #### [address] Lymphocytes (Bld) [#/Vol] 2.3 10*3/uL Normal 1.00-4.8 [facility] Comment on above: Performed By: #### H EPATIC, CBC, BMP, LIPASE #### [address] Lymphocytes/100 WBC (Bld) 36.1 % Normal . [facility] Comment on above: Performed By: #### H EPATIC, CBC, BMP, LIPASE #### [address] MCH (RBC) [Entitic mass] 29.2 pg Normal 24.7-34.3 [facility] Comment on above: Performed By: #### H EPATIC, CBC, BMP, LIPASE #### [address] MCV (RBC) [Entitic vol] 86.7 fL Normal 80-100 [facility] Comment on above: Performed By: #### H EPATIC, CBC, BMP, LIPASE #### [address] Mean Corpuscular HGB Conc 33.7 g/dL Normal 32.0-35.0 [facility] Comment on above: Performed By: #### H EPATIC, CBC, BMP, LIPASE #### [address] Monocytes (Bld) [#/Vol] 0.5 10*3/uL Normal 0.0-0.8 [facility] Comment on above: Performed By: #### H EPATIC, CBC, BMP, LIPASE #### [facility] [address] Monocytes/100 WBC (Bld) 16.44 % Normal 0.00-20.00 [facility] Comment on above: Performed By: #### H EPATIC, CBC, BMP, LIPASE #### [address] Monocytes/100 WBC (Bld) 7.7 % Normal . [facility] Comment on above: Performed By: #### H EPATIC, CBC, BMP, LIPASE #### [address] Neutrophils (Bld) [#/Vol] 3.2 10*3/uL Normal 1.8-7.7 [facility] Comment on above: Performed By: #### H EPATIC, CBC, BMP, LIPASE #### [address] Neutrophils/100 WBC (Bld) 50.2 % Normal . [facility] Comment on above: Performed By: #### H EPATIC, CBC, BMP, LIPASE #### [address] NRBC% 0.1 /100{WBC} Normal 0-0.5 [facility] Comment on above: Performed By: #### H EPATIC, CBC, BMP, LIPASE #### [facility] [address] [place] [address] Platelet mean volume (Bld) [Entitic vol] 7.6 fL Normal 6.3-10.7 [facility] Comment on above: Performed By: #### H EPATIC, CBC, BMP, LIPASE #### [facility] [address] [place] [address] Platelets (Bld) [#/Vol] 357 10*3/uL Normal 150-450 [facility] Comment on above: Performed By: #### H EPATIC, CBC, BMP, LIPASE #### [facility] [address] RBC (Bld) [#/Vol] 4.12 10*6/uL Normal 3.60-5.00 [facility] Comment on above: Performed By: #### H EPATIC, CBC, BMP, LIPASE #### [facility] [address] WBC (Bld) [#/Vol] 6.3 10*3/uL Normal 3.8-11.6 [facility] Comment on above: Performed By: #### H EPATIC, CBC, BMP, LIPASE #### [facility] [address] Creatinine [Mass/volume] in Serum or PlasmaOrdered By: Pete Thakkar on 03-23-2023 Creatinine [Mass/Vol] 0.72 mg/dL 0.60-1.20 [facility] Dipstick and Microscopicon 0 03-23-2023 Appearance (U) Clear Normal Clear [facility] Comment on above: Order Comment: Name Collection Type:: Clean-Voided Midstream Performed By: #### P ORS #### [facility] [address] [place] [address] Bacteria,Urine 1+ High None Seen [facility] Comment on above: Order Comment: Name Collection Type:: Clean-Voided Midstream Performed By: #### P ORS #### [facility] [address] [place] [address] [place] Bilirubin,Urine Negative Normal Negative [facility] Comment on above: Order Comment: Name Collection Type:: Clean-Voided Midstream Performed By: #### P ORS #### [facility] [address] [place] [address] [place] Color (U) Yellow Normal Yellow [facility] Comment on above: Order Comment: Name Collection Type:: Clean-Voided Midstream Performed By: #### P ORS #### [facility] [address] [place] [address] [place] Glucose Ql (U) Normal Normal Normal [facility] Comment on above: Order Comment: Name Collection Type:: Clean-Voided Midstream Performed By: #### P ORS #### [facility] [address] [place] [address] [place] Hyaline Casts,Urine None Seen Normal 0-8 [facility] Comment on above: Order Comment: Name Collection Type:: Clean-Voided Midstream Result Comment: PERF ORMED BY: [place] [address] PATHOLOGIST REGULATOR OPERATOR ROOSEVELT KEYES M.D. Performed By: #### P ORS #### [address] Ketones Ql (U) Negative Normal Negative [facility] Comment on above: Order Comment: Name Collection Type:: Clean-Voided Midstream Performed By: #### P ORS #### [address] Leukocyte esterase Test strip Ql (U) Negative Normal Negative [facility] Comment on above: Order Comment: Name Collection Type:: Clean-Voided Midstream Performed By: #### P ORS #### [place] [address] [place] Nitrite,Urine Negative Normal Negative [facility] Comment on above: Order Comment: Name Collection Type:: Clean-Voided Midstream Performed By: #### P ORS #### [address] Occult Blood,Urine Trace High Negative [facility] [facility] Comment on above: Order Comment: Name Collection Type:: Clean-Voided Midstream Result Comment: PERF ORMED BY: [facility] [address] [place] [address] PATHOLOGIST REGULATOR OPERATOR ROOSEVELT KEYES M.D. Performed By: #### P ORS #### [address] pH (U) 5.0 [pH] Normal 5.0-9.0 [facility] Comment on above: Order Comment: Name Collection Type:: Clean-Voided Midstream Performed By: #### P ORS #### [address] Protein,Urine Negative Normal Negative [facility] Comment on above: Order Comment: Name Collection Type:: Clean-Voided Midstream Performed By: #### P ORS #### [address] RBC LM.HPF (Urine sed) [#/Area] 0 /[HPF] Normal 0-4 [facility] Comment on above: Order Comment: Name Collection Type:: Clean-Voided Midstream Performed By: #### P ORS #### [address] Specificy [place],Urine 1.048 High 1.001-1.030 [facility] Comment on above: Order Comment: Name Collection Type:: Clean-Voided Midstream Performed By: #### P ORS #### [address] Squamous Epithelial Cell,Urine None Seen Normal 0-2 [facility] Comment on above: Order Comment: Name Collection Type:: Clean-Voided Midstream Performed By: #### P ORS #### [address] Urobilinogen,Urine Normal Normal Normal [facility] Comment on above: Order Comment: Name Collection Type:: Clean-Voided Midstream Performed By: #### P ORS #### [address] WBC LM.HPF (Urine sed) [#/Area] 0 /[HPF] Normal 0-4 [facility] Comment on above: Order Comment: Name Collection Type:: Clean-Voided Midstream Performed By: #### P ORS #### [place] [address] [place] Eosinophils Auto (Bld) [#/Vo l]Ordered By: Pete Thakkar on 03-23-2023 Eosinophils (Bld) [#/Vol] 0.3 10*3/uL 0.0-0.45 [facility] Eosinophils/100 WBC Auto (Bl d)Ordered By: Pete Thakkar on 03-23-2023 Eosinophils/100 WBC (Bld) 5.0 % . [facility] Erythrocyte distribution wid th Auto (RBC) [Ratio]Ordered By: Pete Thakkar on 03-23-2023 Erythrocyte distribution width (RBC) [Ratio] 13.6 % 11.9-15.3 [facility] Globulin Calc (S) [Mass/Vol] Ordered By: Pete Thakkar on 03-23-2023 Globulin (S) [Mass/Vol] 2.9 g/dL [facility] Glucose [Mass/volume] in Ser um or PlasmaOrdered By: Pete Thakkar on 03-23-2023 Glucose [Mass/Vol] 79 mg/dL 70-100 [facility] Comment on above: ADA recommended refe rence rangeRandom Glucose Reference Range is dependent on time and content of last meal. Glucose of more than 200 mg/dL in a nonstressed, ambulatory subject supports the diagnosis of Diabetes Mellitus. Hematocrit Auto (Bld) [Volum e fraction]Ordered By: Pete Thakkar on 03-23-2023 Hematocrit (Bld) [Volume fraction] 35.7 % 34.0-46.4 [facility] Hemoglobin [Mass/volume] in BloodOrdered By: Pete Thakkar on 03-23-2023 Hemoglobin (Bld) [Mass/Vol] 12.0 g/dL 11.8-15.4 [facility] Hepatic Panelon 03-23-2023 Albumin [Mass/Vol] 4.1 g/dL Normal 3.5-5.7 [facility] Comment on above: Performed By: #### H EPATIC, CBC, BMP, LIPASE #### [facility] [address] Albumin/Globulin [Mass ratio] 1.4 {ratio} Normal [facility] Comment on above: Performed By: #### H EPATIC, CBC, BMP, LIPASE #### [facility] [address] ALP [Catalytic activity/Vol] 115 U/L High 34-104 [facility] Comment on above: Performed By: #### H EPATIC, CBC, BMP, LIPASE #### [facility] [address] ALT [Catalytic activity/Vol] 11 U/L Normal 7-52 [facility] Comment on above: Performed By: #### H EPATIC, CBC, BMP, LIPASE #### [facility] [address] AST [Catalytic activity/Vol] 15 U/L Normal 13-39 [facility] Comment on above: Performed By: #### H EPATIC, CBC, BMP, LIPASE #### [address] Bilirubin [Mass/Vol] 0.3 mg/dL Normal 0.3-1.0 [facility] Comment on above: Performed By: #### H EPATIC, CBC, BMP, LIPASE #### [address] Bilirubin,Indirect 0.2 mg/dL Normal [facility] Comment on above: Performed By: #### H EPATIC, CBC, BMP, LIPASE #### [address] Bilirubin.indirect [Mass/Vol] 0.10 mg/dL Normal 0.03-0.18 [facility] Comment on above: Performed By: #### H EPATIC, CBC, BMP, LIPASE #### [address] Globulin (S) [Mass/Vol] 2.9 g/dL Normal [facility] Comment on above: Performed By: #### H EPATIC, CBC, BMP, LIPASE #### [address] Protein [Mass/Vol] 7.0 g/dL Normal 6.4-8.9 [facility] Comment on above: Performed By: #### H EPATIC, CBC, BMP, LIPASE #### [address] Ketones Auto test strip (U) [Mass/Vol]Ordered By: Pete Thakkar on 03-23-2023 Ketones (U) [Mass/Vol] Negative Negative [facility] Laboratory - UrinalysisOrder ed By: Pete Thakkar on 03-23-2023 Hyaline casts LM Ql (Urine sed) None seen [LPF] 0-8 [facility] Leukocytes [#/volume] correc jun for nucleated erythrocytes in Blood by Automated counOrdered By: Pete Thakkar on 03-23-2023 WBC corrected for nucl RBC Auto (Bld) [#/Vol] 6.3 10*3/uL 3.8-11.6 [facility] Lipaseon 03-23-2023 Lipase [Catalytic activity/Vol] 32.0 U/L Normal 11.0-82.0 [facility] Comment on above: Result Comment: PERF ORMED BY: [place] [address] PATHOLOGIST REGULATOR OPERATOR ROOSEVELT KEYES M.D. Performed By: #### H EPATIC, CBC, BMP, LIPASE #### [address] Lipase [Enzymatic activity/v olume] in Serum or PlasmaOrdered By: Pete Thakkar on 03-23-2023 Lipase [Catalytic activity/Vol] 32.0 U/L 11.0-82.0 [facility] Lymphocytes Auto (Bld) [#/Vo l]Ordered By: Pete Thakkar on 03-23-2023 Lymphocytes (Bld) [#/Vol] 2.3 10*3/uL 1.00-4.8 [facility] Lymphocytes/100 WBC Auto (Bl d)Ordered By: Pete Thakkar on 03-23-2023 Lymphocytes/100 WBC (Bld) 36.1 % . [facility] MCH Auto (RBC) [Entitic mass ]Ordered By: Pete Thakkar on 03-23-2023 MCH (RBC) [Entitic mass] 29.2 pg 24.7-34.3 [facility] MCHC Auto (RBC) [Mass/Vol]Or dered By: Pete Thakkar on 03-23-2023 MCHC (RBC) [Mass/Vol] 33.7 g/dL 32.0-35.0 [facility] MCV Auto (RBC) [Entitic vol] Ordered By: Pete Thakkar on 03-23-2023 MCV (RBC) [Entitic vol] 86.7 fL 80-100 [facility] Monocyte distribution width [Entitic volume] in Blood by AutomatedOrdered By: Pete Thakkar on 03-23-2023 Monocyte distribution width Auto (Bld) [Entitic vol] 16.44 % 0.00-20.00 [facility] Monocytes Auto (Bld) [#/Vol] Ordered By: Pete Thakkar on 03-23-2023 Monocytes (Bld) [#/Vol] 0.5 10*3/uL 0.0-0.8 [facility] Monocytes/100 WBC Auto (Bld) Ordered By: Pete Thakkar on 03-23-2023 Monocytes/100 WBC (Bld) 7.7 % . [facility] Neutrophils Auto (Bld) [#/Vo l]Ordered By: Pete Thakkar on 03-23-2023 Neutrophils (Bld) [#/Vol] 3.2 10*3/uL 1.8-7.7 [facility] Neutrophils/100 WBC Auto (Bl d)Ordered By: Pete Thakkar on 03-23-2023 Neutrophils/100 WBC (Bld) 50.2 % . [facility] Nitrite Test strip Ql (U)Ord ered By: Pete Thakkar on 03-23-2023 Nitrite Ql (U) Negative Negative [facility] No Panel InformationOrdered By: Pete Thakkar on 03-23-2023 Estimated GFR (CKD-EPI) > 60.0 mL/Min [facility] Creatinine Clearance (Chem 105.27 [facility] Nucleated erythrocytes [Pres ence] in Blood by Automated countOrdered By: Pete Thakkar on 03-23-2023 Nucleated RBC Auto Ql (Bld) 0.1 /100{WBC} 0-0.5 [facility] Platelet mean volume Auto (B ld) [Entitic vol]Ordered By: Pete Thakkar on 03-23-2023 Platelet mean volume (Bld) [Entitic vol] 7.6 fL 6.3-10.7 [facility] Platelets Auto (Bld) [#/Vol] Ordered By: Pete Thakkar on 03-23-2023 Platelets (Bld) [#/Vol] 357 10*3/uL 150-450 [facility] Potassium [Moles/volume] in Serum or PlasmaOrdered By: Pete Thakkar on 03-23-2023 Potassium [Moles/Vol] 3.6 mmol/L 3.5-5.1 [facility] Protein Auto test strip (U) [Mass/Vol]Ordered By: Pete Thakkar on 03-23-2023 Protein (U) [Mass/Vol] Negative Negative [facility] Protein [Mass/volume] in Ser um or PlasmaOrdered By: Pete Thakkar on 03-23-2023 Protein [Mass/Vol] 7.0 g/dL 6.4-8.9 [facility] RBC Auto (Bld) [#/Vol]Ordere d By: Pete Thakkar on 03-23-2023 RBC (Bld) [#/Vol] 4.12 10*6/uL 3.60-5.00 [facility] Serum or plasma albumin/glob ulin mass ratioOrdered By: Pete Thakkar on 03-23-2023 Albumin/Globulin [Mass ratio] 1.4 {ratio} [facility] Serum or plasma anion gap de terminationOrdered By: Pete Thakkar on 03-23-2023 Anion gap [Moles/Vol] 10.1 mmol/L 6.0-15.0 [facility] Serum or plasma non-glucuron idated bilirubin measurement (mass/volume)Ordered By: Pete Thakkar on 03-23-2023 Bilirubin.indirect [Mass/Vol] 0.2 mg/dL [facility] Sodium [Moles/volume] in Ser um or PlasmaOrdered By: Pete Thakkar on 03-23-2023 Sodium [Moles/Vol] 142 mmol/L 136-145 [facility] Specific gravity Auto test s trip (U) [Rel density]Ordered By: Pete Thakkar on 03-23-2023 Specific gravity (U) [Rel density] 1.048 1.001-1.030 [facility] Squamous epithelial cells de tection in urine sediment by light microscopyOrdered By: Pete Thakkar on 03-23-2023 Epithelial cells.squamous LM Ql (Urine sed) None seen [HPF] 0-2 [facility] Troponin I High Sensitivityo n 03-23-2023 Troponin I High Sensitivity 12.2 pg/mL Normal 0.0-15.0 [facility] Comment on above: Result Comment: PERF ORMED BY: [place] [address] PATHOLOGIST REGULATOR OPERATOR ROOSEVELT KEYES M.D. Performed By: #### H S TROP #### [address] Troponin I.cardiac [Mass/vol ume] in Serum or Plasma by Detection limit <= 0.01 ng/Ordered By: Pete Thakkar on 03-23-2023 Troponin I.cardiac DL <= 0.01 ng/mL [Mass/Vol] 12.2 pg/mL 0.0-15.0 [facility] Urea nitrogen [Mass/volume] in Serum or PlasmaOrdered By: Pete Thakkar on 03-23-2023 Urea nitrogen [Mass/Vol] 24 mg/dL 7-25 [facility] Urine bacteria detection by automated methodOrdered By: Pete Thakkar on 03-23-2023 Bacteria Auto Ql (U) 1+ None Seen [facility] Urine clarity by refractomet ry automatedOrdered By: Pete Thakkar on 03-23-2023 Clarity Refractometry automated (U) Clear Clear [facility] Urine glucose measurement by automated test strip (mass/volume)Ordered By: Pete Thakkar on 03-23-2023 Glucose Auto test strip (U) [Mass/Vol] Normal mg/dL Normal [facility] Urine hemoglobin detection b y automated test stripOrdered By: Pete Thakkar on 03-23-2023 Hemoglobin Auto test strip Ql (U) Trace Negative [facility] Urine leukocyte esterase det ection by automated test stripOrdered By: Pete Thakkar on 03-23-2023 Leukocyte esterase Auto test strip Ql (U) Negative Negative [facility] Urobilinogen Auto test strip (U) [Mass/Vol]Ordered By: Pete Thakkar on 03-23-2023 Urobilinogen (U) [Mass/Vol] Normal mg/dL Normal [facility] WBC Auto (Bld) [#/Vol]Ordere d By: Pete Thakkar on 03-23-2023 WBC (Bld) [#/Vol] 6.3 10*3/uL 3.8-11.6 [facility] pH Auto test strip (U)Ordere d By: Pete Thakkar on 03-23-2023 pH (U) 5.0 [pH] 5.0-9.0 [facility] Activated partial thrombopla stin time (aPTT) in platelet poor plasma by coagulation aOrdered By: Conner Griffith on 02-15-2023 aPTT Coag (PPP) [Time] 37.0 s 25.1-36.5 [facility] Alanine aminotransferase [En zymatic activity/volume] in Serum or PlasmaOrdered By: Conner Griffith on 02-15-2023 ALT [Catalytic activity/Vol] 13 U/L 7-52 [facility] Albumin [Mass/volume] in Ser um or Plasma by Bromocresol green (BCG) dye binding methoOrdered By: Conner Griffith on 02-15-2023 Albumin BCG dye [Mass/Vol] 4.3 g/dL 3.5-5.7 [facility] Alkaline phosphatase [Enzyma tic activity/volume] in Serum or PlasmaOrdered By: Conner Griffith on 02-15-2023 ALP [Catalytic activity/Vol] 124 U/L 34-104 [facility] Aspartate aminotransferase [ Enzymatic activity/volume] in Serum or PlasmaOrdered By: Conner Griffith on 02-15-2023 AST [Catalytic activity/Vol] 15 U/L 13-39 [facility] Basic Metabolic Panelon 02-03 Anion gap [Moles/Vol] 12.6 mmol/L Normal 6.0-15.0 [facility] Comment on above: Performed By: #### H EPATIC, CBC, BMP, LIPASE #### [facility] [address] [place] [address] [place] Calcium [Mass/Vol] 9.3 mg/dL Normal 8.6-10.3 [facility] Comment on above: Performed By: #### H EPATIC, CBC, BMP, LIPASE #### [facility] [address] [place] [address] [place] Chloride [Moles/Vol] 106 mmol/L Normal 98-107 [facility] Comment on above: Performed By: #### H EPATIC, CBC, BMP, LIPASE #### [facility] [address] [place] [address] [place] CO2 [Moles/Vol] 25.3 mmol/L Normal 21.0-31.0 [facility] Comment on above: Performed By: #### H EPATIC, CBC, BMP, LIPASE #### [facility] [address] Creatinine [Mass/Vol] 0.77 mg/dL Normal 0.60-1.20 [facility] Comment on above: Performed By: #### H EPATIC, CBC, BMP, LIPASE #### [facility] [address] [place] [address] [place] Creatinine Clr Calc Pharmacy 98.[address] [facility] Comment on above: Performed By: #### H EPATIC, CBC, BMP, LIPASE #### [facility] [address] [place] [address] [place] GFR/1.73 sq M.predicted MDRD (S/P/Bld) [Vol rate/Area] mL/min/{1.73_m2} [facility] Comment on above: Performed By: #### H EPATIC, CBC, BMP, LIPASE #### [address] Glucose [Mass/Vol] 94 mg/dL Normal 70-100 [facility] Comment on above: Result Comment: [place] Glucose Reference Range is dependent on time and content of last meal. Glucose of more than 200 mg/dL in a nonstressed, ambulatory subject supports the diagnosis of Diabetes Mellitus. ADA recommended reference range Performed By: #### H EPATIC, CBC, BMP, LIPASE #### [facility] [address] [place] [address] [place] Potassium [Moles/Vol] 3.9 mmol/L Normal 3.5-5.1 [facility] Comment on above: Performed By: #### H EPATIC, CBC, BMP, LIPASE #### [facility] [address] [place] [address] [place] Sodium [Moles/Vol] 140 mmol/L Normal 136-145 [facility] Comment on above: Performed By: #### H EPATIC, CBC, BMP, LIPASE #### [facility] [address] [place] [address] [place] Urea nitrogen [Mass/Vol] 14 mg/dL Normal 7-25 [facility] Comment on above: Performed By: #### H EPATIC, CBC, BMP, LIPASE #### [facility] [address] [place] [address] [place] Basophils Auto (Bld) [#/Vol] Ordered By: Conner Griffith on 02-15-2023 Basophils (Bld) [#/Vol] 0.0 10*3/uL 0.0-0.2 [facility] Basophils/100 WBC Auto (Bld) Ordered By: Conner Griffith on 02-15-2023 Basophils/100 WBC (Bld) 0.6 % . [facility] Bilirubin.direct [Mass/volum e] in Serum or PlasmaOrdered By: Conner Griffith on 02-15-2023 Bilirubin.direct [Mass/Vol] 0.00 mg/dL 0.03-0.18 [facility] Comment on above: If the DBIL is less than 0.1, IBIL is not able to becalculated. Bilirubin.total [Mass/volume ] in Serum or PlasmaOrdered By: Conner Griffith on 02-15-2023 Bilirubin [Mass/Vol] 0.4 mg/dL 0.3-1.[address] [facility] [address] abdomen pelvis w conon CT abdomen pelvis w con [facility] [place] [address] [place] [address] CT Scan Report Signed Patient: Constantino Cardoso MR#: [id number] : 1970 Acct:[id number] Age/Sex: 52 / F ADM Date: 02/15/23 Loc: ER Room: Type: [facility] ER Attending Dr: Copies to: Conner [...] Columba Domínguez M.D.02/15/2023 9:56 AM Dictation Location: [place] [address] Transcribed By: [facility] 02/15/23 0956 Dictated By: Columba Domínguez MD 02/15/23 0943 Signed By: 02/15/23 0956 Normal [facility] Calcium [Mass/volume] in Ser um or PlasmaOrdered By: Conner Griffith on 02-15-2023 Calcium [Mass/Vol] 9.3 mg/dL 8.6-10.3 [facility] Carbon dioxide, total [Moles /volume] in Serum or PlasmaOrdered By: Conner Griffith on 02-15-2023 CO2 [Moles/Vol] 25.3 mmol/L 21.0-31.0 [facility] Chloride [Moles/volume] in S cristine or PlasmaOrdered By: Conner Griffith on 02-15-2023 Chloride [Moles/Vol] 106 mmol/L 98-107 [facility] Complete Blood Count Auto Di ffon 02-15-2023 Basophils (Bld) [#/Vol] 0.0 10*3/uL Normal 0.0-0.2 [facility] Comment on above: Result Comment: PERF ORMED BY: [place] [address] PATHOLOGIST REGULATOR OPERATOR ROOSEVELT KEYES M.D. Performed By: #### P ORS #### [address] Basophils/100 WBC (Bld) 0.6 % Normal . [facility] Comment on above: Performed By: #### P ORS #### [facility] [address] [place] [address] Eosinophils (Bld) [#/Vol] 0.2 10*3/uL Normal 0.0-0.45 [facility] Comment on above: Performed By: #### P ORS #### [facility] [address] [place] [address] Eosinophils/100 WBC (Bld) 4.0 % Normal . [facility] Comment on above: Performed By: #### P ORS #### [address] Erythrocyte distribution width (RBC) [Ratio] 13.5 % Normal 11.9-15.3 [facility] Comment on above: Performed By: #### P ORS #### [address] Hematocrit (Bld) [Volume fraction] 38.4 % Normal 34.0-46.4 [facility] Comment on above: Performed By: #### P ORS #### [address] Hemoglobin (Bld) [Mass/Vol] 13.0 g/dL Normal 11.8-15.4 [facility] Comment on above: Performed By: #### P ORS #### [address] Lymphocytes (Bld) [#/Vol] 1.8 10*3/uL Normal 1.00-4.8 [facility] Comment on above: Performed By: #### P ORS #### [address] Lymphocytes/100 WBC (Bld) 33.8 % Normal . [facility] Comment on above: Performed By: #### P ORS #### [address] MCH (RBC) [Entitic mass] 29.4 pg Normal 24.7-34.3 [facility] Comment on above: Performed By: #### P ORS #### [address] MCV (RBC) [Entitic vol] 86.8 fL Normal 80-100 [facility] Comment on above: Performed By: #### P ORS #### [address] Mean Corpuscular HGB Conc 33.8 g/dL Normal 32.0-35.0 [facility] Comment on above: Performed By: #### P ORS #### [address] Monocytes (Bld) [#/Vol] 0.3 10*3/uL Normal 0.0-0.8 [facility] Comment on above: Performed By: #### P ORS #### [address] Monocytes/100 WBC (Bld) 18.21 % Normal 0.00-20.00 [facility] Comment on above: Performed By: #### P ORS #### [address] Monocytes/100 WBC (Bld) 4.8 % Normal . [facility] Comment on above: Performed By: #### P ORS #### [address] Neutrophils (Bld) [#/Vol] 3.0 10*3/uL Normal 1.8-7.7 [facility] Comment on above: Performed By: #### P ORS #### [address] Neutrophils/100 WBC (Bld) 56.8 % Normal . [facility] Comment on above: Performed By: #### P ORS #### [facility] [address] [place] [address] NRBC% 0.2 /100{WBC} Normal 0-0.5 [facility] Comment on above: Performed By: #### P ORS #### [address] Platelet mean volume (Bld) [Entitic vol] 7.3 fL Normal 6.3-10.7 [facility] Comment on above: Performed By: #### P ORS #### [facility] [address] [place] [address] Platelets (Bld) [#/Vol] 385 10*3/uL Normal 150-450 [facility] Comment on above: Performed By: #### P ORS #### [address] RBC (Bld) [#/Vol] 4.43 10*6/uL Normal 3.60-5.00 [facility] Comment on above: Performed By: #### P ORS #### [facility] [address] [place] [address] WBC (Bld) [#/Vol] 5.2 10*3/uL Normal 3.8-11.6 [facility] Comment on above: Performed By: #### P ORS #### [address] Creatinine [Mass/volume] in Serum or PlasmaOrdered By: Conner Griffith on 02-15-2023 Creatinine [Mass/Vol] 0.77 mg/dL 0.60-1.20 [facility] Eosinophils Auto (Bld) [#/Vo l]Ordered By: Conner Griffith on 02-15-2023 Eosinophils (Bld) [#/Vol] 0.2 10*3/uL 0.0-0.45 [facility] Eosinophils/100 WBC Auto (Bl d)Ordered By: Conner Griffith on 02-15-2023 Eosinophils/100 WBC (Bld) 4.0 % . [facility] Erythrocyte distribution wid th Auto (RBC) [Ratio]Ordered By: Conner Griffith on 02-15-2023 Erythrocyte distribution width (RBC) [Ratio] 13.5 % 11.9-15.3 [facility] Globulin Calc (S) [Mass/Vol] Ordered By: Conner Griffith on 02-15-2023 Globulin (S) [Mass/Vol] 3.0 g/dL [facility] Glucose [Mass/volume] in Ser um or PlasmaOrdered By: Conner Griffith on 02-15-2023 Glucose [Mass/Vol] 94 mg/dL 70-100 [facility] Comment on above: ADA recommended refe rence rangeRandom Glucose Reference Range is dependent on time and content of last meal. Glucose of more than 200 mg/dL in a nonstressed, ambulatory subject supports the diagnosis of Diabetes Mellitus. Hematocrit Auto (Bld) [Volum e fraction]Ordered By: Conner Griffith on 02-15-2023 Hematocrit (Bld) [Volume fraction] 38.4 % 34.0-46.4 [facility] Hemoglobin [Mass/volume] in BloodOrdered By: Conner Griffith on 02-15-2023 Hemoglobin (Bld) [Mass/Vol] 13.0 g/dL 11.8-15.4 [facility] Hepatic Panelon 02-15-2023 Albumin [Mass/Vol] 4.3 g/dL Normal 3.5-5.7 [facility] Comment on above: Performed By: #### P ORS #### [facility] [address] [place] [address] [place] Albumin/Globulin [Mass ratio] 1.4 {ratio} Normal [facility] Comment on above: Performed By: #### P ORS #### [facility] [address] [place] [address] [place] ALP [Catalytic activity/Vol] 124 U/L High 34-104 [facility] Comment on above: Performed By: #### P ORS #### [facility] [address] [place] [address] ALT [Catalytic activity/Vol] 13 U/L Normal 7-52 [facility] Comment on above: Performed By: #### P ORS #### [address] AST [Catalytic activity/Vol] 15 U/L Normal 13-39 [facility] Comment on above: Performed By: #### P ORS #### [address] Bilirubin [Mass/Vol] 0.4 mg/dL Normal 0.3-1.0 [facility] Comment on above: Performed By: #### P ORS #### [address] Bilirubin,Indirect 0.4 mg/dL Normal [facility] Comment on above: Performed By: #### P ORS #### [address] Bilirubin.indirect [Mass/Vol] 0.00 mg/dL Low 0.03-0.18 [facility] Comment on above: Result Comment: If t he DBIL is less than 0.1, IBIL is not able to be calculated. Performed By: #### P ORS #### [address] Globulin (S) [Mass/Vol] 3.0 g/dL Normal [facility] Comment on above: Performed By: #### P ORS #### [address] Protein [Mass/Vol] 7.3 g/dL Normal 6.4-8.9 [facility] Comment on above: Performed By: #### P ORS #### [address] Laboratory - CoagulationOrde red By: Conner Griffith on 02-15-2023 PT Coag (PPP) [Time] 11.7 s 9.0-12.9 [facility] Leukocytes [#/volume] correc jun for nucleated erythrocytes in Blood by Automated counOrdered By: Conner Griffith on 02-15-2023 WBC corrected for nucl RBC Auto (Bld) [#/Vol] 5.2 10*3/uL 3.8-11.6 [facility] Lipaseon 02-15-2023 Lipase [Catalytic activity/Vol] 19.0 U/L Normal 11.0-82.0 [facility] Comment on above: Result Comment: PERF ORMED BY: [facility] [address] [place] [address] PATHOLOGIST REGULATOR OPERATOR ROOSEVELT KEYES M.D. Performed By: #### H EPATIC, CBC, BMP, LIPASE #### [address] Lipase [Enzymatic activity/v olume] in Serum or PlasmaOrdered By: Conner Griffith on 02-15-2023 Lipase [Catalytic activity/Vol] 19.0 U/L 11.0-82.0 [facility] Lymphocytes Auto (Bld) [#/Vo l]Ordered By: Conner Griffith on 02-15-2023 Lymphocytes (Bld) [#/Vol] 1.8 10*3/uL 1.00-4.8 [facility] Lymphocytes/100 WBC Auto (Bl d)Ordered By: Conner Griffith on 02-15-2023 Lymphocytes/100 WBC (Bld) 33.8 % . [facility] MCH Auto (RBC) [Entitic mass ]Ordered By: Conner Griffith on 02-15-2023 MCH (RBC) [Entitic mass] 29.4 pg 24.7-34.3 [facility] MCHC Auto (RBC) [Mass/Vol]Or dered By: Conner Griffith on 02-15-2023 MCHC (RBC) [Mass/Vol] 33.8 g/dL 32.0-35.0 [facility] [place] [facility] MCV Auto (RBC) [Entitic vol] Ordered By: Conner Griffith on 02-15-2023 MCV (RBC) [Entitic vol] 86.8 fL 80-100 [facility] Monocyte distribution width [Entitic volume] in Blood by AutomatedOrdered By: Conner Griffith on 02-15-2023 Monocyte distribution width Auto (Bld) [Entitic vol] 18.21 % 0.00-20.00 [facility] Monocytes Auto (Bld) [#/Vol] Ordered By: Conner Griffith on 02-15-2023 Monocytes (Bld) [#/Vol] 0.3 10*3/uL 0.0-0.8 [facility] Monocytes/100 WBC Auto (Bld) Ordered By: Conner Griffith on 02-15-2023 Monocytes/100 WBC (Bld) 4.8 % . [facility] Neutrophils Auto (Bld) [#/Vo l]Ordered By: Conner Griffith on 02-15-2023 Neutrophils (Bld) [#/Vol] 3.0 10*3/uL 1.8-7.7 [facility] Neutrophils/100 WBC Auto (Bl d)Ordered By: Conner Griffith on 02-15-2023 Neutrophils/100 WBC (Bld) 56.8 % . [facility] No Panel InformationOrdered By: Conner Griffith on 02-15-2023 Estimated GFR (CKD-EPI) > 60.0 mL/Min [facility] Creatinine Clearance (Chem 98.01 [facility] Nucleated erythrocytes [Pres ence] in Blood by Automated countOrdered By: Conner Griffith on 02-15-2023 Nucleated RBC Auto Ql (Bld) 0.2 /100{WBC} 0-0.5 [facility] Partial Thromboplastin Timeo n 02-15-2023 aPTT Coag (Bld) [Time] 37.0 s High 25.1-36.5 [facility] Comment on above: Result Comment: PERF ORMED BY: [place] [address] PATHOLOGIST REGULATOR OPERATOR ROOSEVELT KEYES M.D. Performed By: #### P ORS #### [address] Platelet mean volume Auto (B ld) [Entitic vol]Ordered By: Conner Griffith on 02-15-2023 Platelet mean volume (Bld) [Entitic vol] 7.3 fL 6.3-10.7 [facility] Platelet poor plasma interna tional normalized ratio (INR) by coagulation assay (relatOrdered By: Conner Griffith on 02-15-2023 INR Coag (PPP) [Relative time] 1.0 {INR} [facility] Comment on above: INR Therapeutic Rang e [...] 02-15-2023 Platelets (Bld) [#/Vol] 385 10*3/uL 150-450 [facility] Potassium [Moles/volume] in Serum or PlasmaOrdered By: Conner Griffith on 02-15-2023 Potassium [Moles/Vol] 3.9 mmol/L 3.5-5.1 [facility] Protein [Mass/volume] in Ser um or PlasmaOrdered By: Conner Griffith on 02-15-2023 Protein [Mass/Vol] 7.3 g/dL 6.4-8.9 [facility] Prothrombin Time INRon 02-15 INR Coag (PPP) [Relative time] 1.0 {INR} Normal [facility] Comment on above: Result Comment: INR Therapeutic [...] 4.5 Performed By: #### P ORS #### [address] PT Coag (PPP) [Time] 11.7 s Normal 9.0-12.9 [facility] Comment on above: Performed By: #### P ORS #### [facility] [address] [place] [id number] [facility] RBC Auto (Bld) [#/Vol]Ordere d By: Conner Griffith on 02-15-2023 RBC (Bld) [#/Vol] 4.43 10*6/uL 3.60-5.00 [facility] Serum or plasma albumin/glob ulin mass ratioOrdered By: Conner Griffith on 02-15-2023 Albumin/Globulin [Mass ratio] 1.4 {ratio} [facility] Serum or plasma anion gap de terminationOrdered By: Conner Griffith on 02-15-2023 Anion gap [Moles/Vol] 12.6 mmol/L 6.0-15.0 [facility] Serum or plasma non-glucuron idated bilirubin measurement (mass/volume)Ordered By: Conner Griffith on 02-15-2023 Bilirubin.indirect [Mass/Vol] 0.4 mg/dL [facility] Sodium [Moles/volume] in Ser um or PlasmaOrdered By: Conner Griffith on 02-15-2023 Sodium [Moles/Vol] 140 mmol/L 136-145 [facility] Urea nitrogen [Mass/volume] in Serum or PlasmaOrdered By: Conner Griffith on 02-15-2023 Urea nitrogen [Mass/Vol] 14 mg/dL 7-25 [facility] WBC Auto (Bld) [#/Vol]Ordere d By: Conner Griffith on 02-15-2023 WBC (Bld) [#/Vol] 5.2 10*3/uL 3.8-11.6 [facility] MG MAMM SCREEN 3D MACARIO CADon 11-30-2022 MG MAMM SCREEN 3D MACARIO CAD Normal [facility] ER URINE PROFILEon 3 Bilirubin Ql (U) Negative Normal NEGATIVE [facility] Comment on above: Performed By: #### E RUR ####[facility] [address] [place] [address]DrNeo Tadeo Haja Clarity (U) CLEAR Normal CLEAR [facility] Comment on above: Performed By: #### E RUR ####[facility] [address] [place], [place] [address]Dr. Margotnicole Smyth Color (U) YELLOW Normal YELLOW [facility] Comment on above: Performed By: #### E RUR ####[facility] Spnlheapwk[address] [place], [place] [address]Dr. Tadeo PANAHD A micrscopic examina tion will be performed if indicated. Normal [facility] Comment on above: Performed By: #### E RUR ####[facility] Bxqklmnyeq[address] [place], [place] [address]Dr. Margotnicole Haja Glucose Ql (U) Negative Normal NEGATIVE [facility] Comment on above: Performed By: #### E RUR ####[facility] [address] [place], [place] [address]Dr. Tadeo Smyth Hemoglobin Ql (U) TRACE-INTACT Abnormal NEGATIVE [facility] Comment on above: Performed By: #### E RUR ####[facility] [address] [place], [place] [address]Dr. Tadeo Smyth Ketones Ql (U) Negative Normal NEGATIVE [facility] Comment on above: Performed By: #### E RUR ####[facility] Fxvmkvxnco[address] [place], [place] [address]Dr. Tadeo Smyth LEUKOCYTES Negative Normal NEGATIVE [facility] Comment on above: Performed By: #### E RUR ####[facility] [address] [place], [place] [address]Dr. Tadeo Smyth Nitrite Ql (U) Negative Normal NEGATIVE [facility] Comment on above: Performed By: #### E RUR ####[facility] Wcjrxntsww[address] [place], [place] [address]Dr. Tadeo Smyth pH (U) 6.0 [pH] Normal 5-9 [facility] Comment on above: Performed By: #### E RUR ####[facility] [address] [place], [place] [address]Dr. Tadeo Smyth SPEC GRAVITY >=1.030 Abnormal 1.005-<=1.0 25 [facility] Comment on above: Performed By: #### E RUR ####[facility] [address] [place] [address]Dr. Margotnicole Smyth UA PROTEIN Negative Normal NEGATIVE/ TRACE [facility] Comment on above: Performed By: #### E RUR ####[facility] Rskqaovyya[address] [place], [place] [address]Dr. Tadeo Smyth UR MICRO IND NOT INDICATED Normal [facility] Comment on above: Performed By: #### E RUR ####[facility] Fdliuscqmg[address] [place], [place] [address]Dr. Tadeo Haja Urobilinogen Qn (U) 0.2 {Benito'U}/dL Normal 0.2 - 1. 0 [facility] Comment on above: Performed By: #### E RUR ####[facility] V[address]ht[address] [place], [place] [address]Dr. Margotnicole Smyth XR ABD FLAT UP_PA Kasey 11-28 XR ABD FLAT UP_PA CH Normal [facility] AMYLASEon 11-27-2022 Amylase [Catalytic activity/Vol] 63 U/L Normal 25-115 [facility] Comment on above: Performed By: #### L IPA, VIJI, CMP ####[facility] [address]vewx[address]hyx[address] [place], [place] [address]Dr. Tadeo Haja CBC AUTO DIFFon 11-27-2022 BASO # 0.0 103/ul Normal 0.0-0.1 [facility] Comment on above: Performed By: #### C BC ####[facility] [address]bs[address] [place], [place] [address]Dr. Tadeo Smyth Basophils/100 WBC (Bld) 0.4 % Normal 0.2-2.0 [facility] Comment on above: Performed By: #### C BC ####[facility] Yjgoabsldj[address] [place], [place] [address]Dr. Tadeo Smyth EO # 0.2 103/ul Normal 0.0-0.7 [facility] Comment on above: Performed By: #### C BC ####[facility] Fmmuuxojat[address] [place], [place] [address]Dr. Tadeo Smyth Eosinophils/100 WBC (Bld) 2.8 % Normal 0.9-7.0 [facility] Comment on above: Performed By: #### C BC ####[facility] [address] [place] [address]Dr. Tadeo Smyth Erythrocyte distribution width (RBC) [Ratio] 13.2 % Normal 11.0-15.0 [facility] Comment on above: Performed By: #### C BC ####[facility] Txvnjqplxq[address] [place], [place] [address]Dr. Tadeo Smyth Hematocrit (Bld) [Volume fraction] 42.6 % Normal 36.0-48.0 [facility] Comment on above: Performed By: #### C BC ####[facility] Lkvgfkcpkc[address] [place], [place] [address]Dr. Tadeo Smyth Hemoglobin (Bld) [Mass/Vol] 13.6 g/dL Normal 12.0-16.0 [facility] Comment on above: Performed By: #### C BC ####[facility] Zfmudrhaji[address] [place], [place] [address]Dr. Tadeo Smyth IG # 0.02 10e3/ul Normal 0.00-0.03 [facility] Comment on above: Performed By: #### C BC ####[facility] Ekbfwrbevd[address] [place], [place] [address]Dr. Tadeo Smyth IG % 0.3 % Normal 0.0-0.5 [facility] Comment on above: Performed By: #### C BC ####[facility] Sqfvoubcum[address] [place], [place] [address]Dr. Tadeo Smyth LYMPH # 2.2 103/ul Normal 1.2-3.8 [facility] Comment on above: Performed By: #### C BC ####[facility] X[address]jeszfbnk[address] [place], [place] [address]Dr. Tadeo Smyth Lymphocytes/100 WBC (Bld) 32.1 % Normal 20.5-60.0 [facility] Comment on above: Performed By: #### C BC ####[facility] [address]ft[address]lqkvq[address] [place], [place] [address]Dr. Tadeo Smyth MANUAL DIFF REQ NO Normal [facility] Comment on above: Performed By: #### C BC ####[facility] [address] [place] [id number]. Tadeo Haja MCH (RBC) [Entitic mass] 29.6 pg Normal 26.7-34.0 [facility] Comment on above: Performed By: #### C BC ####[facility] [address] [place] [address]Dr. Tadeo Haja MCHC (RBC) [Mass/Vol] 31.9 g/dL Normal 29.9-35.2 [facility] Comment on above: Performed By: #### C BC ####[facility] [address] [place] [address]Dr. Tadeo Smyth MCV (RBC) [Entitic vol] 92.6 fL Normal 81.0-99.0 [facility] Comment on above: Performed By: #### C BC ####[facility] Ayeuz[address]ebm[address] [place], [place] [address]Dr. Tadeo Smyth MONO # 0.2 103/ul Critically low 0.3-0.8 [facility] Comment on above: Performed By: #### C BC ####[facility] Unfrswaeyw[address] [place], [place] [address]Dr. Tadeo Smyth Monocytes/100 WBC (Bld) 3.2 % Normal 1.7-12.0 [facility] Comment on above: Performed By: #### C BC ####[facility] [address] [place], [place] [address]DrNeo Smyth NEUT # 4.2 103/ul Normal 1.4-6.5 [facility] Comment on above: Performed By: #### C BC ####[facility] Z[address]ixv[address] [place], [place] [address]DrNeo Smyth Neutrophils/100 WBC (Bld) 61.2 % Normal 43.0-75.0 [facility] Comment on above: Performed By: #### C BC ####[facility] Hqmxnwcyql[address] [place], [place] [address]DrNeo Smyth Platelet mean volume (Bld) [Entitic vol] 9.0 fL Critically low 9.5-13.5 [facility] Comment on above: Performed By: #### C BC ####[facility] [address] [place] [address]Dr. Tadeo Smyth PLT 392 103/ul Normal 150-450 [facility] Comment on above: Performed By: #### C BC ####[facility] [address] [place] [address]Dr. Tadeo Smyth RBC 4.60 106/ul Normal 4.20-5.40 [facility] Comment on above: Performed By: #### C BC ####[facility] [address] [place] [address]Dr. Tadeo Smyth WBC 6.9 103/ul Normal 4.0-11.0 [facility] Comment on above: Performed By: #### C BC ####[facility] J[address]lyijahk[address] [place], [place] [address]Dr. Tadeo Smyth LIPASEon 11-27-2022 Lipase [Catalytic activity/Vol] 100.0 U/L Normal 73.0-393.0 [facility] Comment on above: Performed By: #### L VIJI HALL, CMP ####[facility] Z[address]zcvowjj[address] [place], [place] [address]Dr. Tadeo Smyth PROF 14(COMP METB)on 023 Albumin [Mass/Vol] 3.5 g/dL Normal 3.4-5.0 [facility] Comment on above: Performed By: #### L VIJI HALL, CMP ####[facility] [address] [place] [address]Dr. Tadeo Smyth Albumin/Globulin [Mass ratio] 0.9 {ratio} Normal [facility] Comment on above: Performed By: #### L VIJI HALL, CMP ####[facility] Vjs[address]cshtn[address] [place], [place] [address]Dr. Tadeo Smyth ALP [Catalytic activity/Vol] 166 U/L Critically high 46-116 [facility] Comment on above: Performed By: #### L VIJI HALL, CMP ####[facility] [address] [place], [place] [id number]. Tadeo Smyth ALT [Catalytic activity/Vol] 25 U/L Normal 14-59 [facility] Comment on above: Performed By: #### L VIJI HALL, CMP ####[facility] [address] [place] [address]Dr. Tadeo Smyth Anion gap [Moles/Vol] 12.4 mmol/L Normal Th e [facility] Comment on above: Performed By: #### L VIJI HALL, CMP ####[facility] [address] [place] [address]Dr. Tadeo Smyth AST [Catalytic activity/Vol] 18 U/L Normal 15-37 [facility] Comment on above: Performed By: #### L VIJI HALL, CMP ####[facility] [address]recxckxk[address] [place], [place] [address]Dr. Tadeo Smyth Bilirubin [Mass/Vol] 0.3 mg/dL Normal 0.2-1.0 [facility] Comment on above: Performed By: #### L VIJI HALL, CMP ####[facility] Inujchj[address]vy[address] [place], [place] [address]Dr. Tadeo Smyth Calcium [Mass/Vol] 9.1 mg/dL Normal 8.5-10.1 [facility] Comment on above: Performed By: #### L VIJI HALL, CMP ####[facility] Ifzonvvqep[address] [place], [place] [address]Dr. Tadeo Smyth Chloride [Moles/Vol] 104 mmol/L Normal 98-107 [facility] Comment on above: Performed By: #### L VIJI HALL, CMP ####[facility] Jqs[address]qecnu[address] [place], [place] [address]Dr. Tadeo Smyth CO2 [Moles/Vol] 25.0 mmol/L Normal 21.0-32.0 [facility] Comment on above: Performed By: #### L VIJI HALL, CMP ####[facility] Ycjouq[address] [place], [place] [address]Dr. Tadeo Smyth Creatinine [Mass/Vol] 0.87 mg/dL Normal 0.55-1.02 [facility] Comment on above: Performed By: #### L VIJI HALL, CMP ####[facility] [address] [place] [address]Dr. Tadeo Smyth EGFR-AF LUXEMBOURGER >60 Normal >=60 [facility] Comment on above: Performed By: #### L VIJI HALL, CMP ####[facility] [address] [place] [address]Dr. Tadeo Smyth EGFR-NON AF LUXEMBOURGER >60 Normal >=60 [facility] Comment on above: Performed By: #### L VIJI HALL, CMP ####[facility] [address] [place] [address]Dr. Tadeo Smyth Globulin (S) [Mass/Vol] 3.9 g/dL Normal [facility] Comment on above: Performed By: #### L VIJI HALL, CMP ####[facility] [address] [place], [place] [address]Dr. Tadeo Smyth Glucose [Mass/Vol] 169 mg/dL Critically high 74-106 [facility] Comment on above: Performed By: #### L VIJI HALL, CMP ####[facility] [address]jxxmpun[address] [place], [place] [address]Dr. Tadeo Smyth Potassium [Moles/Vol] 3.4 mmol/L Critically low 3.5-5.1 [facility] Comment on above: Performed By: #### L VIJI HALL, CMP ####[facility] Te[address]onpt[address] [place], [place] [address]Dr. Tadeo Smyth Protein [Mass/Vol] 7.4 g/dL Normal 6.4-8.2 The [facility] Comment on above: Performed By: #### L VIJI HALL, CMP ####[facility] [address]mfbw[address] [place], [place] [address]Dr. Tadeo Smyth Sodium [Moles/Vol] 138 mmol/L Normal 136-145 [facility] Comment on above: Performed By: #### L VIJI HALL, CMP ####[facility] [address] [place], [place] [address]Dr. Tadeo Smyth Urea nitrogen [Mass/Vol] 23.0 mg/dL Critically high 7.0-18.0 [facility] Comment on above: Performed By: #### L VIJI HALL, CMP ####[facility] [address] [place], [place] [address]Ur. Tadeo Smyth Urea nitrogen/Creatinine [Mass ratio] 26.4 mg/mg Normal [facility] Comment on above: Performed By: #### L ISABEL, VIJI, CMP ####[facility] [address] [place], [place] [address]Kr. Tadeo Smyth CT enterographyon 11-04-2022 CT enterography [facility] [address] CT Scan Report Signed Patient: Constantino Cardoso MR#: [id number] : 1970 Acct:[id number] Age/Sex: 52 / F ADM Date: 11/04/22 Loc: CT Room: Type: [facility] Attending Dr: Jennie Ayon MD Copies [...] Bateman Jr., D.O.11/04/2022 11:17 AM Dictation Location: [place] [address] Transcribed By: [facility] 11/04/22 111 Dictated By: Tiburcio Bateman Jr, DO 11/04/22 1112 Signed By: 11/04/22 1117 Normal [facility] AMYLASEon 11-02-2022 Amylase [Catalytic activity/Vol] 40 U/L Normal 25-115 [facility] Comment on above: Performed By: #### L IPA, MG, CMP, VIJI ####[facility] [address] [place] [address]Dr. Tadeo Smyth CBC AUTO DIFFon 11-02-2022 BASO # 0.0 103/ul Normal 0.0-0.1 [facility] Comment on above: Performed By: #### C BC ####[facility] [address] [place] [address]Dr. Tadeo Smyth Basophils/100 WBC (Bld) 0.5 % Normal 0.2-2.0 The [facility] Comment on above: Performed By: #### C BC ####[facility] [address] [place] [address]Dr. Tadeo Smyth EO # 0.1 103/ul Normal 0.0-0.7 The [facility] Comment on above: Performed By: #### C BC ####[facility] [address] [place] [address]Dr. Tadeo Smyth Eosinophils/100 WBC (Bld) 2.8 % Normal 0.9-7.0 The [facility] Comment on above: Performed By: #### C BC ####[facility] [address]yra[address] [place], [place] [address]Dr. Tadeo Smyth Erythrocyte distribution width (RBC) [Ratio] 13.3 % Normal 11.0-15.0 The [facility] Comment on above: Performed By: #### C BC ####[facility] [address] [place] [address]Dr. Tadeo Smyth Hematocrit (Bld) [Volume fraction] 35.6 % Critically low 36.0-48.0 [facility] Comment on above: Performed By: #### C BC ####[facility] [address] [place], [place] [address]Dr. Margotnicole Smyth Hemoglobin (Bld) [Mass/Vol] 11.3 g/dL Critically low 12.0-16.0 [facility] Comment on above: Performed By: #### C BC ####[facility] Ttr[address] [place], [place] [address]Dr. Tadeo Smyth IG # 0.01 10e3/ul Normal 0.00-0.03 [facility] Comment on above: Performed By: #### C BC ####[facility] [address] [place], [place] [address]Dr. Tadeo Smyth IG % 0.2 % Normal 0.0-0.5 The [facility] Comment on above: Performed By: #### C BC ####[facility] [address] [place], [place] [address]Dr. Margotnicole Smyth LYMPH # 1.5 103/ul Normal 1.2-3.8 The [facility] Comment on above: Performed By: #### C BC ####[facility] [address] [place], [place] [address]DrNeo Smyth Lymphocytes/100 WBC (Bld) 34.9 % Normal 20.5-60.0 The [facility] Comment on above: Performed By: #### C BC ####[facility] [address] [place] [place], [place] [address]DrNeo Smyth MANUAL DIFF REQ NO Normal The [facility] Comment on above: Performed By: #### C BC ####[facility] [address]qnnazwso[address] [place], [place] [address]DrNeo Smyth MCH (RBC) [Entitic mass] 28.8 pg Normal 26.7-34.0 The [facility] Comment on above: Performed By: #### C BC ####[facility] [address] [place] [id number]. Tadeo Haja MCHC (RBC) [Mass/Vol] 31.7 g/dL Normal 29.9-35.2 The [facility] Comment on above: Performed By: #### C BC ####[facility] [address]vsrs[address] [place] [id number]. Tadeo Smyth MCV (RBC) [Entitic vol] 90.8 fL Normal 81.0-99.0 The [facility] Comment on above: Performed By: #### C BC ####[facility] Krbtefqspp[address] [place], [place] [address]Dr. Tadeo Smyth MONO # 0.3 103/ul Normal 0.3-0.8 The [facility] Comment on above: Performed By: #### C BC ####[facility] Ygkcipiebr[address] [place], [place] [address]Dr. Tadeo Smyth Monocytes/100 WBC (Bld) 6.9 % Normal 1.7-12.0 The [facility] Comment on above: Performed By: #### C BC ####[facility] Wlqpufzjmz[address] [place], [place] [address]Dr. Tadeo Smyth NEUT # 2.4 103/ul Normal 1.4-6.5 The [facility] Comment on above: Performed By: #### C BC ####[facility] Btyfomxxdt[address] [place], [place] [address]Dr. Tadeo Smyth Neutrophils/100 WBC (Bld) 54.7 % Normal 43.0-75.0 The [facility] Comment on above: Performed By: #### C BC ####[facility] [address]zeqemykio[address] [place], [place] [address]Dr. Tadeo Smyth Platelet mean volume (Bld) [Entitic vol] 8.9 fL Critically low 9.5-13.5 The [facility] Comment on above: Performed By: #### C BC ####[facility] Gnetrezsyx[address] [place], [place] [address]Dr. Tadeo Smyth PLT 316 103/ul Normal 150-450 The [facility] Comment on above: Performed By: #### C BC ####[facility] [address] [place] [address]Dr. Tadeo Smyth RBC 3.92 106/ul Critically low 4.20-5.40 [facility] Comment on above: Performed By: #### C BC ####[facility] [address]kgppq[address] [place] [address]Dr. Tadeo Smyth WBC 4.4 103/ul Normal 4.0-11.0 [facility] Comment on above: Performed By: #### C BC ####[facility] [address] [place] [address]Dr. Tadeo Smyth H PYLORI ANTIBODY IGGon 10-07 H. PYLORI IGG ABS 0.12 Index Value Normal 0.00-0.79 [facility] Comment on above: Result Comment: Nega tive <0.80 Equivocal 0.80 - 0.89 Positive >0.89 Performed By: #### H PYLLC ####[facility] Nkxpveeugi[address] [place], [place] [address]Dr. Tadeo Smyth LIPASEon 11-02-2022 Lipase [Catalytic activity/Vol] 58.0 U/L Critically low 73.0-393.0 [facility] Comment on above: Performed By: #### L IPA, MG, CMP, VIJI ####[facility] Woflelqxzx[address] [place], [place] [address]Dr. Tadeo Smyth MAGNESIUMon 11-02-2022 Magnesium [Mass/Vol] 1.8 mg/dL Normal 1.8-2.4 [facility] Comment on above: Performed By: #### L IPA, MG, CMP, VIJI ####[facility] Bupfzeakdr[address] [place], [place] [address]Dr. Margotnicole Smyth PROF 14(COMP METB)on 023 Albumin [Mass/Vol] 3.2 g/dL Critically low 3.4-5.0 Th e [facility] Comment on above: Performed By: #### L IPA, MG, CMP, VIJI ####[facility] Sroapymiqm[address] [place], [place] [address]Dr. Tadeo Smyth Albumin/Globulin [Mass ratio] 1.0 {ratio} Normal [facility] Comment on above: Performed By: #### L IPA, MG, CMP, VIJI ####[facility] [address] [place] [address]Dr. Tadeo Smyth ALP [Catalytic activity/Vol] 138 U/L Critically high 46-116 [facility] Comment on above: Performed By: #### L IPA, MG, CMP, VIJI ####[facility] Fojkhhtevb[address] [place], [place] [address]Dr. aTdeo Smyth ALT [Catalytic activity/Vol] 22 U/L Normal 14-59 The [facility] Comment on above: Performed By: #### L IPA, MG, CMP, VIJI ####[facility] Aupeiikjvb[address] [place], [place] [address]Dr. Tadeo Smyth Anion gap [Moles/Vol] 10.0 mmol/L Normal [facility] Comment on above: Performed By: #### L IPA, MG, CMP, VIJI ####[facility] Grakxzsrvy[address] [place], [place] [address]Dr. Tadeo Smyth AST [Catalytic activity/Vol] 18 U/L Normal 15-37 The [facility] Comment on above: Performed By: #### L IPA, MG, CMP, VIJI ####[facility] Jjqciyomri[address] [place], [place] [address]Dr. Tadeo Smyth Bilirubin [Mass/Vol] 0.5 mg/dL Normal 0.2-1.0 [facility] Comment on above: Performed By: #### L IPA, MG, CMP, VIJI ####[facility] Rbkzmjvp[address] [place], [place] [address]Dr. Tadeo Smyth Calcium [Mass/Vol] 8.9 mg/dL Normal 8.5-10.1 The [facility] Comment on above: Performed By: #### L IPA, MG, CMP, VIJI ####[facility] Ktnaohhell[address] [place], [place] [address]Dr. Tadeo Smyth Chloride [Moles/Vol] 107 mmol/L Normal 98-107 The [facility] Comment on above: Performed By: #### L IPA, MG, CMP, VIJI ####[facility] [address] [place] [id number]. Tadeo Smyth CO2 [Moles/Vol] 28.8 mmol/L Normal 21.0-32.0 The [facility] Comment on above: Performed By: #### L IPA, MG, CMP, VIJI ####[facility] [address]dsarm[address] [place] [address]Dr. Tadeo Smyth Creatinine [Mass/Vol] 0.74 mg/dL Normal 0.55-1.02 The [facility] Comment on above: Performed By: #### L IPA, MG, CMP, VIJI ####[facility] [address] [place] [address]Dr. Tadeo Smyth EGFR-AF LUXEMBOURGER >60 Normal >=60 The [facility] Comment on above: Performed By: #### L IPA, MG, CMP, VIJI ####[facility] [address]ntf[address] [place] [address]Dr. Margotnicole Haja EGFR-NON AF LUXEMBOURGER >60 Normal >=60 The [facility] Comment on above: Performed By: #### L IPA, MG, CMP, VIJI ####[facility] [address]knv[address] [place] [address]Dr. Tadeo Smyth Globulin (S) [Mass/Vol] 3.3 g/dL Normal The [facility] Comment on above: Performed By: #### L IPA, MG, CMP, VIJI ####[facility] [address] [place] [address]Dr. Margotnicole Haja Glucose [Mass/Vol] 96 mg/dL Normal 74-106 The [facility] Comment on above: Performed By: #### L IPA, MG, CMP, VIJI ####[facility] [address]ysz[address] [place] [address]Dr. Tadeo Smyth Potassium [Moles/Vol] 3.8 mmol/L Normal 3.5-5.1 The [facility] Comment on above: Performed By: #### L IPA, MG, CMP, VIJI ####[facility] [address]ro[address] [place] [address]Dr. Margotnicole Smyth Protein [Mass/Vol] 6.5 g/dL Normal 6.4-8.2 [facility] Comment on above: Performed By: #### L IPA, MG, CMP, VIJI ####[facility] Pnhgbkcozz[address] [place], [place] [address]Dr. Tadeo Smyth Sodium [Moles/Vol] 142 mmol/L Normal 136-145 The [facility] Comment on above: Performed By: #### L IPA, MG, CMP, VIJI ####[facility] Frdzonliya[address] [place], [place] [address]Dr. Tadeo Smyth Urea nitrogen [Mass/Vol] 8.0 mg/dL Normal 7.0-18.0 The [facility] Comment on above: Performed By: #### L IPA, MG, CMP, VIJI ####[facility] Dvhyvdulqv[address] [place], [place] [address]Dr. Tadeo Smyth Urea nitrogen/Creatinine [Mass ratio] 10.8 mg/mg Normal The [facility] Comment on above: Performed By: #### L IPA, MG, CMP, VIJI ####[facility] Egtpqldyrt[address] [place], [place] [address]Dr. Tadeo Smyth AMMONIAon 11-01-2022 Ammonia (P) [Moles/Vol] 18 umol/L Normal 11-32 The [facility] Comment on above: Performed By: #### A MM ####[facility] Ixtzktvemt[address] [place], [place] [address]Dr. Tadeo Smyth AMYLASEon 11-01-2022 Amylase [Catalytic activity/Vol] 43 U/L Normal 25-115 The [facility] Comment on above: Performed By: #### M G, VIJI, LIPA, CMP ####[facility] Ketxswnagg[address] [place], [place] [address]Dr. Tadeo Smyth CBC AUTO DIFFon 11-01-2022 BASO # 0.0 103/ul Normal 0.0-0.1 The [facility] Comment on above: Performed By: #### C BC ####[facility] Hwbzqffgku[address] [place], [place] [address]Dr. Tadeo Smyth Basophils/100 WBC (Bld) 0.6 % Normal 0.2-2.0 The [facility] Comment on above: Performed By: #### C BC ####[facility] [address]xfxndp[address] [place] [id number]. Tadeo Smyth EO # 0.1 103/ul Normal 0.0-0.7 The [facility] Comment on above: Performed By: #### C BC ####[facility] [address] [place] [address]Dr. Tadeo Smyth Eosinophils/100 WBC (Bld) 1.5 % Normal 0.9-7.0 The [facility] Comment on above: Performed By: #### C BC ####[facility] Sawnjcsdgv[address] [place], [place] [address]Dr. Tadeo Smyth Erythrocyte distribution width (RBC) [Ratio] 13.5 % Normal 11.0-15.0 [facility] Comment on above: Performed By: #### C BC ####[facility] Qmehquieex[address] [place], [place] [address]Dr. Tadeo Smyth Hematocrit (Bld) [Volume fraction] 37.7 % Normal 36.0-48.0 [facility] Comment on above: Performed By: #### C BC ####[facility] Sbcyuutrro[address] [place], [place] [address]Dr. Tadeo Smyth Hemoglobin (Bld) [Mass/Vol] 12.5 g/dL Normal 12.0-16.0 The [facility] Comment on above: Performed By: #### C BC ####[facility] Jrsdbtrkow[address] [place], [place] [address]Dr. Tadeo Smyth IG # 0.02 10e3/ul Normal 0.00-0.03 The [facility] Comment on above: Performed By: #### C BC ####[facility] Rodnneyvlv[address] [place], [place] [address]Dr. Tadeo Smyth IG % 0.4 % Normal 0.0-0.5 The [facility] Comment on above: Performed By: #### C BC ####[facility] Ctlhrxngcp[address] [place], [place] [address]Dr. Tadeo Smyth LYMPH # 1.3 103/ul Normal 1.2-3.8 The [facility] Comment on above: Performed By: #### C BC ####[facility] Qvrqagbkkk[address] [place] [id number]. Margotnicole Smyth Lymphocytes/100 WBC (Bld) 23.9 % Normal 20.5-60.0 [facility] Comment on above: Performed By: #### C BC ####[facility] V[address]xvfbmx[address] [place] [id number]. Tadeo Smyth MANUAL DIFF REQ NO Normal The [facility] Comment on above: Performed By: #### C BC ####[facility] Mhevkkvvnd[address] [place] [id number]. Tadeo Smyth MCH (RBC) [Entitic mass] 29.8 pg Normal 26.7-34.0 [facility] Comment on above: Performed By: #### C BC ####[facility] Zxzurxfqqb[address] [place], [place] [address]Dr. Tadeo Smyth MCHC (RBC) [Mass/Vol] 33.2 g/dL Normal 29.9-35.2 The [facility] Comment on above: Performed By: #### C BC ####[facility] Xpvglmsbfl[address] [place], [place] [address]Dr. Tadeo Smyth MCV (RBC) [Entitic vol] 89.8 fL Normal 81.0-99.0 [facility] Comment on above: Performed By: #### C BC ####[facility] Mtxjczyvdr[address] [place], [place] [address]Dr. Tadeo Smyth MONO # 0.3 103/ul Normal 0.3-0.8 The [facility] Comment on above: Performed By: #### C BC ####[facility] Eyvlelsjtp25[address] [place], [place] [address]Dr. Tadeo Smyth Monocytes/100 WBC (Bld) 5.2 % Normal 1.7-12.0 The [facility] Comment on above: Performed By: #### C BC ####[facility] Ogcxucfmln[address] [place], [place] [address]Dr. Tadeo Smyth NEUT # 3.6 103/ul Normal 1.4-6.5 The [facility] Comment on above: Performed By: #### C BC ####[facility] [address]vngs[address] [place] [id number]. Tadeo Smyth Neutrophils/100 WBC (Bld) 68.4 % Normal 43.0-75.0 [facility] Comment on above: Performed By: #### C BC ####[facility] T[address]scz[address] [place] [address]Dr. Tadeo Smyth Platelet mean volume (Bld) [Entitic vol] 9.0 fL Critically low 9.5-13.5 [facility] Comment on above: Performed By: #### C BC ####[facility] Ttpnmchqwq[address] [place], [place] [address]Dr. Tadeo Smyth PLT 356 103/ul Normal 150-450 The [facility] Comment on above: Performed By: #### C BC ####[facility] Hoqjstlxii24[address] [place], [place] [address]Dr. Tadeo Smyth RBC 4.20 106/ul Normal 4.20-5.40 The [facility] Comment on above: Performed By: #### C BC ####[facility] Suypguuskb[address] [place], [place] [address]Dr. Tadeo Smyth WBC 5.2 103/ul Normal 4.0-11.0 The [facility] Comment on above: Performed By: #### C BC ####[facility] Phtfuagase[address] [place], [place] [address]Dr. Tadeo Smyth CT ABD/PELV W CONon 11-01-[address] ABD/PELV W CON Normal The [facility] CULTURE BLOODon 11-01-2022 Microscopic examination of blood, culture Culture Observations: NO GROWTH AT 5 DAYS. Isolate 1 BC_BA_NA Normal The [facility] Comment on above: Performed By: #### B LDCX2 ####[facility] Zkwlaopqvi[address] [place], [place] [address]Dr. Tadeo Smyth Performed By: #### B LDCX1 ####[facility] Solhqgayyi[address] [place], [place] [address]Dr. Tadeo Smyth CULTURE URINEon 11-01-2022 CULTURE URINE Culture Observations : LIGHT GROWTH OF MIXED GENITAL SINTIA. NO POTENTIAL PATHOGENS SEEN. Normal The [facility] Comment on above: Performed By: #### U RCX ####[facility] Hppgczpnla8[address] [place], [place] [address]Dr. Tadeo Smyth Covid-19 PCR ([facility])on 10-07 SARS-CoV-2 (COVID-19) RNA CHEN+probe Ql (Unsp spec) Not detected Normal NOT DETECTED The [facility] Comment on above: Result Comment: When diagnostic [...] for this test is supported by the [employer] of Health and Human Service's declaration that [...] be used). Performed By: #### C VDTBH ####[facility] Dvyelvzqpu[address] [place], [place] [address]Dr. Tadeo Haja LACTATE/LACTIC ACIDon 2022 Lactate [Moles/Vol] 0.7 mmol/L Normal 0.4-1.9 The [facility] Comment on above: Performed By: #### L ACT ####[facility] Vcncqwkuwu[address] [place], [place] [address]Dr. Tadeo Haja LIPASEon 11-01-2022 Lipase [Catalytic activity/Vol] 58.0 U/L Critically low 73.0-393.0 [facility] Comment on above: Performed By: #### M G, VIJI, LIPA, CMP ####[facility] Oicvtcmiup[address] [place], [place] [address]Dr. Tadeo Smyth MAGNESIUMon 11-01-2022 Magnesium [Mass/Vol] 2.0 mg/dL Normal 1.8-2.4 [facility] Comment on above: Performed By: #### M Ayan, VIJI, LIPA, CMP ####[facility] [address]phdt[address] [place] [address]Dr. Tadeo Smyth PROF 14(COMP METB)on 023 Albumin [Mass/Vol] 3.6 g/dL Normal 3.4-5.0 [facility] Comment on above: Performed By: #### M G, VIJI, LIPA, CMP ####[facility] [address]qiygrc[address] [place] [address]Dr. Tadeo Smyth Albumin/Globulin [Mass ratio] 1.0 {ratio} Normal [facility] Comment on above: Performed By: #### M G, VIJI, LIPA, CMP ####[facility] [address]zb[address]uf[address] [place] [address]Dr. Tadeo Smyth ALP [Catalytic activity/Vol] 164 U/L Critically high 46-116 [facility] Comment on above: Performed By: #### M Ayan, VIJI, LIPA, CMP ####[facility] [address]aejpnwyyk[address] [place], [place] [address]Dr. Tadeo Smyth ALT [Catalytic activity/Vol] 22 U/L Normal 14-59 [facility] Comment on above: Performed By: #### M G, VIJI, LIPA, CMP ####[facility] [address]kwq[address]myyp[address] [place] [address]Dr. Tadeo Smyth Anion gap [Moles/Vol] 11.5 mmol/L Normal [facility] Comment on above: Performed By: #### M G, VIJI, LIPA, CMP ####[facility] Mjpctvxfuc[address] [place], [place] [address]Dr. Tadeo Smyth AST [Catalytic activity/Vol] 17 U/L Normal 15-37 [facility] Comment on above: Performed By: #### M G, VIJI, LIPA, CMP ####[facility] [address]xw[address]ys[address] [place] [address]Dr. Tadeo Smyth Bilirubin [Mass/Vol] 0.4 mg/dL Normal 0.2-1.0 The [facility] Comment on above: Performed By: #### M Ayan, FLACO HALLMANA, CMP ####[facility] X[address]fcaufsk[address] [place] [address]Dr. Tadeo Smyth Calcium [Mass/Vol] 9.1 mg/dL Normal 8.5-10.1 The [facility] Comment on above: Performed By: #### M VIJI Botello LIPA, CMP ####[facility] Kjnmetxzuf[address] [place], [place] [address]Dr. Tadeo Smyth Chloride [Moles/Vol] 105 mmol/L Normal 98-107 The [facility] Comment on above: Performed By: #### VIIJ White LIPA, CMP ####[facility] Qbnmdbzcge[address] [place], [place] [address]Dr. Tadeo Smyth CO2 [Moles/Vol] 27.6 mmol/L Normal 21.0-32.0 The [facility] Comment on above: Performed By: #### VIJI Wihte LIPA, CMP ####[facility] Vhxosywtva[address] [place], [place] [address]Dr. Tadeo Smyth Creatinine [Mass/Vol] 0.72 mg/dL Normal 0.55-1.02 The [facility] Comment on above: Performed By: #### M VIJI Botello LIPA, CMP ####[facility] Unnatqanan[address] [place], [place] [address]Dr. Tadeo Smyth EGFR-AF LUXEMBOURGER >60 Normal >=60 The [facility] Comment on above: Performed By: #### M Ayan, VIJI, LIPA, CMP ####[facility] Somnrlunim[address] [place], [place] [address]Dr. Tadeo Smyth EGFR-NON AF LUXEMBOURGER >60 Normal >=60 The [facility] Comment on above: Performed By: #### M Ayan, VIJI, LIPA, CMP ####[facility] [address]kctazkkfp[address] [place], [place] [address]Dr. Tadeo Smyth Globulin (S) [Mass/Vol] 3.6 g/dL Normal The [facility] Comment on above: Performed By: #### M Ayan, VIJI LIPA, CMP ####[facility] [address]xdxqasorn[address] [place] [address]Dr. Tadeo Smyth Glucose [Mass/Vol] 100 mg/dL Normal 74-106 The [facility] Comment on above: Performed By: #### M G, VIJI, LIPA, CMP ####[facility] Rbxvaenwvj[address] [place] [address]Dr. Tadeo Smyth Potassium [Moles/Vol] 4.1 mmol/L Normal 3.5-5.1 The [facility] Comment on above: Performed By: #### M G, VIJI, LIPA, CMP ####[facility] [address]bomopbznq[address] [place] [address]Dr. Margotnicole Smyth Protein [Mass/Vol] 7.2 g/dL Normal 6.4-8.2 The [facility] Comment on above: Performed By: #### M G, VIJI, LIPA, CMP ####[facility] Qcumiaxzoz[address] [place] [address]Dr. Tadeo Smyth Sodium [Moles/Vol] 140 mmol/L Normal 136-145 The [facility] Comment on above: Performed By: #### M G, VIJI, LIPA, CMP ####[facility] Bkvfsirppi[address] [place], [place] [address]Dr. Tadeo Smyth Urea nitrogen [Mass/Vol] 15.0 mg/dL Normal 7.0-18.0 The [facility] Comment on above: Performed By: #### M G, VIJI, LIPA, CMP ####[facility] [address]zfwuvfgpc[address] [place] [address]Dr. Margotnicole Haja Urea nitrogen/Creatinine [Mass ratio] 20.8 mg/mg Normal The [facility] Comment on above: Performed By: #### M G, VIJI, LIPA, CMP ####[facility] [address]seccmlwj[address] [place] [address]Dr. Tadeo Smyth UA RANDOM W/MICROSCOPICon BACTERIA TRACE Abnormal NONE SEEN The [facility] Comment on above: Performed By: #### U AMIC ####[facility] [address]elbgvp[address] [place] [address]Dr. Tadeo Smyth Bilirubin Ql (U) Negative Normal NEGATIVE The [facility] Comment on above: Performed By: #### U AMIC ####[facility] Evhoeoofbe[address] [place], [place] [address]Dr. Tadeo Smyth CAST NONE SEEN Normal NONE SEEN The [facility] Comment on above: Performed By: #### U AMIC ####[facility] Gagsfjkufe[address] [place], [place] [address]Dr. Tadeo Smyth Clarity (U) CLEAR Normal CLEAR The [facility] Comment on above: Performed By: #### U AMIC ####[facility] Gxoivnhlho[address] [place], [place] [address]Dr. Tadeo Smyth Color (U) LT. YELLOW Normal YELLOW The [facility] Comment on above: Performed By: #### U AMIC ####[facility] Zpbyyogxtf[address] [place], [place] [address]Dr. Tadeo Smyth Crystals LM Nom (Urine sed) NONE SEEN Normal NONE SEEN The [facility] Comment on above: Performed By: #### U AMIC ####[facility] Hhiiztuzov[address] [place], [place] [address]Dr. Tadeo Smyth Epithelial cells LM Ql (Urine sed) RARE Normal NONE SEEN /RARE The [facility] Comment on above: Performed By: #### U AMIC ####[facility] [address]vnuvynmox[address] [place], [place] [address]Dr. Tadeo Smyth Glucose Ql (U) Negative Normal NEGATIVE The [facility] Comment on above: Performed By: #### U AMIC ####[facility] Jfolkqyuhd[address] [place], [place] [address]Dr. Tadeo Smyth Hemoglobin Ql (U) TRACE-LYSED Abnormal NEGATIVE The [facility] Comment on above: Performed By: #### U AMIC ####[facility] [address]seifqsivn[address] [place], [place] [address]Dr. Tadeo Smyth Ketones Ql (U) Negative Normal NEGATIVE The [facility] Comment on above: Performed By: #### U AMIC ####[facility] Yypeebtsmm[address] [place], [place] [address]Dr. Tadeo Smyth LEUKOCYTES Negative Normal NEGATIVE The [facility] Comment on above: Performed By: #### U AMIC ####[facility] [address]cr[address] [place] [address]Dr. Margotnicole Haja MUCOUS NONE SEEN Normal NONE SEEN The [facility] Comment on above: Performed By: #### U AMIC ####[facility] [address]pirxdtuxv[address] [place] [address]Dr. Tadeo Smyth Nitrite Ql (U) Negative Normal NEGATIVE The [facility] Comment on above: Performed By: #### U AMIC ####[facility] [id number] [place] [address]Dr. Tadeo Smyth pH (U) 6.0 [pH] Normal 5-9 The [facility] Comment on above: Performed By: #### U AMIC ####[facility] [address] [place], [place] [address]Dr. Tadeo Smyth RBC 0-2 Normal 0-2 The [facility] Comment on above: Performed By: #### U AMIC ####[facility] [address] [place], [place] [address]Dr. Tadeo Smyth SPEC GRAVITY 1.010 Normal 1.005-<=1.0 25 The [facility] Comment on above: Performed By: #### U AMIC ####[facility] [address] [place], [place] [address]Dr. Tadeo Smyth UA PROTEIN Negative Normal NEGATIVE/ TRACE The [facility] Comment on above: Performed By: #### U AMIC ####[facility] [address] [place], [place] [address]Dr. Tadeo Smyth Urobilinogen Qn (U) 0.2 {Benito'U}/dL Normal 0.2 - 1. 0 The [facility] Comment on above: Performed By: #### U AMIC ####[facility] [address] [place], [place] [address]Dr. Tadeo Smyth WBC 0-2 Abnormal NONE SEEN The [facility] Comment on above: Performed By: #### U AMIC ####[facility] [address] [place], [place] [address]Dr. Tadeo Smyth Activated partial thrombopla stin time (aPTT) in platelet poor plasma by coagulation aOrdered By: Conner Griffith on 10-26-2022 aPTT Coag (PPP) [Time] 30.8 s 25.1-36.5 [facility] Albumin [Mass/volume] in Ser um or PlasmaOrdered By: Conner Griffith on 10-26-2022 Albumin [Mass/Vol] 3.6 g/dL 3.2-5.5 [facility] Automated erythrocytes count in urine sediment (number/area)Ordered By: Conner Griffith on 10-26-2022 RBC Auto (Urine sed) [#/Area] 0-1 [HPF] 0-4 [facility] Automated leukocytes count i n urine sediment (number/area)Ordered By: Conner Griffith on 10-26-2022 WBC Auto (Urine sed) [#/Area] None seen [HPF] 0-4 [facility] Basophils Auto (Bld) [#/Vol] Ordered By: Conner Griffith on 10-26-2022 Basophils (Bld) [#/Vol] 0.0 10*3/uL 0.0-0.2 [facility] Basophils/100 WBC Auto (Bld) Ordered By: Conner Griffith on 10-26-2022 Basophils/100 WBC (Bld) 0.6 % . [facility] Bilirubin Test strip Ql (U)O rdered By: Conner Griffith on 10-26-2022 Bilirubin Ql (U) Negative Negative [facility] CT abdomen pelvis w conon CT abdomen pelvis w con [facility] [place] [address] CT Scan Report Signed Patient: Constantino Cardoso MR#: [id number] : 1970 Acct:[id number] Age/Sex: 52 / F ADM Date: 10/26/22 Loc: ER Room: Type: [facility] ER Attending Dr: Copies to: Conner [...] Columba Domínguez M.D.10/26/2022 7:46 AM Dictation Location: [place] [address] Transcribed By: [facility] 10/26/22 0746 Dictated By: Columba Domínguez MD 10/26/22 0738 Signed By: 10/26/22 07 Normal [facility] Color Auto (U)Ordered By: Kevin Griffith on 10-26-2022 Color (U) Yellow Yellow [facility] Complete Blood Count Auto Di ffon 10-26-2022 Basophils (Bld) [#/Vol] 0.0 10*3/uL Normal 0.0-0.2 [facility] Comment on above: Result Comment: PERF ORMED BY: [place] [address] PATHOLOGIST REGULATOR OPERATOR ROOSEVELT KEYES M.D. Performed By: #### H EPATIC, CBC, BMP, LIPASE #### [address] Basophils/100 WBC (Bld) 0.6 % Normal . [facility] Comment on above: Performed By: #### H EPATIC, CBC, BMP, LIPASE #### [address] Eosinophils (Bld) [#/Vol] 0.2 10*3/uL Normal 0.0-0.45 [facility] Comment on above: Performed By: #### H EPATIC, CBC, BMP, LIPASE #### [address] Eosinophils/100 WBC (Bld) 3.3 % Normal . [facility] Comment on above: Performed By: #### H EPATIC, CBC, BMP, LIPASE #### [address] Erythrocyte distribution width (RBC) [Ratio] 14.5 % Normal 11.9-15.3 [facility] Comment on above: Performed By: #### H EPATIC, CBC, BMP, LIPASE #### [address] Hematocrit (Bld) [Volume fraction] 36.7 % Normal 34.0-46.4 [facility] Comment on above: Performed By: #### H EPATIC, CBC, BMP, LIPASE #### [address] Hemoglobin (Bld) [Mass/Vol] 12.1 g/dL Normal 11.8-15.4 [facility] Comment on above: Performed By: #### H EPATIC, CBC, BMP, LIPASE #### [address] Lymphocytes (Bld) [#/Vol] 1.9 10*3/uL Normal 1.00-4.8 [facility] Comment on above: Performed By: #### H EPATIC, CBC, BMP, LIPASE #### [address] Lymphocytes/100 WBC (Bld) 29.7 % Normal . [facility] Comment on above: Performed By: #### H EPATIC, CBC, BMP, LIPASE #### [address] MCH (RBC) [Entitic mass] 29.3 pg Normal 24.7-34.3 [facility] Comment on above: Performed By: #### H EPATIC, CBC, BMP, LIPASE #### [address] MCV (RBC) [Entitic vol] 88.5 fL Normal 80-100 [facility] Comment on above: Performed By: #### H EPATIC, CBC, BMP, LIPASE #### [address] Mean Corpuscular HGB Conc 33.1 g/dL Normal 32.0-35.0 [facility] Comment on above: Performed By: #### H EPATIC, CBC, BMP, LIPASE #### [address] Monocytes (Bld) [#/Vol] 0.4 10*3/uL Normal 0.0-0.8 [facility] Comment on above: Performed By: #### H EPATIC, CBC, BMP, LIPASE #### [address] Monocytes/100 WBC (Bld) 16.27 % Normal 0.00-20.00 [facility] Comment on above: Performed By: #### H EPATIC, CBC, BMP, LIPASE #### [address] Monocytes/100 WBC (Bld) 7.1 % Normal . [facility] Comment on above: Performed By: #### H EPATIC, CBC, BMP, LIPASE #### [address] Neutrophils (Bld) [#/Vol] 3.7 10*3/uL Normal 1.8-7.7 [facility] Comment on above: Performed By: #### H EPATIC, CBC, BMP, LIPASE #### [address] Neutrophils/100 WBC (Bld) 59.3 % Normal . [facility] Comment on above: Performed By: #### H EPATIC, CBC, BMP, LIPASE #### [address] NRBC% 0.3 /100{WBC} Normal 0-0.5 [facility] Comment on above: Performed By: #### H EPATIC, CBC, BMP, LIPASE #### [address] Platelet mean volume (Bld) [Entitic vol] 7.5 fL Normal 6.3-10.7 [facility] Comment on above: Performed By: #### H EPATIC, CBC, BMP, LIPASE #### [address] Platelets (Bld) [#/Vol] 379 10*3/uL Normal 150-450 [facility] Comment on above: Performed By: #### H EPATIC, CBC, BMP, LIPASE #### [address] RBC (Bld) [#/Vol] 4.14 10*6/uL Normal 3.60-5.00 [facility] Comment on above: Performed By: #### H EPATIC, CBC, BMP, LIPASE #### [address] WBC (Bld) [#/Vol] 6.3 10*3/uL Normal 3.8-11.6 [facility] Comment on above: Performed By: #### H EPATIC, CBC, BMP, LIPASE #### [address] [place] [address] [place] Comprehensive Metabolic Pane miranda 10-26-2022 Albumin [Mass/Vol] 3.6 g/dL Normal 3.2-5.5 [facility] Comment on above: Performed By: #### H EPATIC, CBC, BMP, LIPASE #### [facility] [address] Albumin/Globulin [Mass ratio] 1.1 {ratio} Normal [facility] Comment on above: Performed By: #### H EPATIC, CBC, BMP, LIPASE #### [facility] [address] [place] [address] ALP [Catalytic activity/Vol] 121 U/L High 32-92 [facility] Comment on above: Performed By: #### H EPATIC, CBC, BMP, LIPASE #### [facility] [address] [place] [address] ALT [Catalytic activity/Vol] 18 U/L Normal 10-60 [facility] Comment on above: Performed By: #### H EPATIC, CBC, BMP, LIPASE #### [facility] [address] [place] [address] Anion gap [Moles/Vol] 11.3 mmol/L Normal 6.0-15.0 [facility] Comment on above: Performed By: #### H EPATIC, CBC, BMP, LIPASE #### [facility] [address] [place] [address] AST [Catalytic activity/Vol] 19 U/L Normal 10-42 [facility] Comment on above: Performed By: #### H EPATIC, CBC, BMP, LIPASE #### [facility] [address] [place] [address] Bilirubin [Mass/Vol] 0.4 mg/dL Normal 0.3-1.2 [facility] Comment on above: Performed By: #### H EPATIC, CBC, BMP, LIPASE #### [facility] [address] [place] [address] Calcium [Mass/Vol] 8.9 mg/dL Normal 8.2-10.2 [facility] Comment on above: Performed By: #### H EPATIC, CBC, BMP, LIPASE #### [address] Chloride [Moles/Vol] 108 mmol/L Normal 95-114 [facility] Comment on above: Performed By: #### H EPATIC, CBC, BMP, LIPASE #### [address] CO2 [Moles/Vol] 25.1 mmol/L Normal 22.0-30.0 [facility] Comment on above: Performed By: #### H EPATIC, CBC, BMP, LIPASE #### [address] Creatinine [Mass/Vol] 0.81 mg/dL Normal 0.44-1.03 [facility] Comment on above: Performed By: #### H EPATIC, CBC, BMP, LIPASE #### [address] Creatinine Clr Calc Pharmacy 93.[address] [facility] Comment on above: Performed By: #### H EPATIC, CBC, BMP, LIPASE #### [address] Estimated GFR ( Roberto > [address] [facility] Comment on above: Result Comment: GFR estimated reference range: According to KDOQI guidelines, <60 ml/min/1.73m2 is sufficient to diagnose a patient with chronic kidney disease. Performed By: #### H EPATIC, CBC, BMP, LIPASE #### [address] Estimated GFR (Non- Am > [address] [facility] Comment on above: Performed By: #### H EPATIC, CBC, BMP, LIPASE #### [address] Globulin (S) [Mass/Vol] 3.2 g/dL [facility] Comment on above: Performed By: #### H EPATIC, CBC, BMP, LIPASE #### [address] Glucose [Mass/Vol] 95 mg/dL Normal 70-100 [facility] Comment on above: Result Comment: [facility] Glucose Reference Range is dependent on time and content of last meal. Glucose of more than 200 mg/dL in a nonstressed, ambulatory subject supports the diagnosis of Diabetes Mellitus. ADA recommended reference range Performed By: #### H EPATIC, CBC, BMP, LIPASE #### [facility] [address] Potassium [Moles/Vol] 3.4 mmol/L Low 3.5-5.1 [facility] Comment on above: Performed By: #### H EPATIC, CBC, BMP, LIPASE #### [address] Protein [Mass/Vol] 6.8 g/dL Normal 6.1-7.9 [facility] Comment on above: Performed By: #### H EPATIC, CBC, BMP, LIPASE #### [address] Sodium [Moles/Vol] 141 mmol/L Normal 136-146 [facility] Comment on above: Performed By: #### H EPATIC, CBC, BMP, LIPASE #### [address] Urea nitrogen [Mass/Vol] 18 mg/dL Normal 9-23 [facility] Comment on above: Performed By: #### H EPATIC, CBC, BMP, LIPASE #### [place] [address] [place] Creatinine and Glomerular fi ltration rate.predicted panel (S/P/Bld)Ordered By: Conner Griffith on 10-26-2022 Creatinine [Mass/Vol] 0.81 mg/dL 0.44-1.03 [facility] Dipstick and Microscopicon 0 10-26-2022 Appearance (U) Clear Normal Clear [facility] Comment on above: Order Comment: Name Collection Type:: Clean-Voided Midstream Performed By: #### H EPATIC, CBC, BMP, LIPASE #### [place] [address] [place] Bacteria,Urine None Seen Normal None Seen [facility] Comment on above: Order Comment: Name Collection Type:: Clean-Voided Midstream Performed By: #### H EPATIC, CBC, BMP, LIPASE #### [facility] [address] [place] [address] [place] Bilirubin,Urine Negative Normal Negative [facility] Comment on above: Order Comment: Name Collection Type:: Clean-Voided Midstream Performed By: #### H EPATIC, CBC, BMP, LIPASE #### [facility] [address] [place] [address] Color (U) Yellow Normal Yellow [facility] Comment on above: Order Comment: Name Collection Type:: Clean-Voided Midstream Performed By: #### H EPATIC, CBC, BMP, LIPASE #### [facility] [address] [place] [address] Glucose Ql (U) Normal Normal Normal [facility] Comment on above: Order Comment: Name Collection Type:: Clean-Voided Midstream Performed By: #### H EPATIC, CBC, BMP, LIPASE #### [facility] [address] [place] [address] Hyaline Casts,Urine None Seen Normal 0-8 [facility] Comment on above: Order Comment: Name Collection Type:: Clean-Voided Midstream Result Comment: PERF ORMED BY: [place] [address] PATHOLOGIST REGULATOR OPERATOR ROOSEVELT KEYES M.D. Performed By: #### H EPATIC, CBC, BMP, LIPASE #### [facility] [address] [place] [address] [place] Ketones Ql (U) Negative Normal Negative [facility] Comment on above: Order Comment: Name Collection Type:: Clean-Voided Midstream Performed By: #### H EPATIC, CBC, BMP, LIPASE #### [facility] [address] [place] [address] [place] Leukocyte esterase Test strip Ql (U) 1+ High Negative [facility] Comment on above: Order Comment: Name Collection Type:: Clean-Voided Midstream Performed By: #### H EPATIC, CBC, BMP, LIPASE #### [address] Nitrite,Urine Negative Normal Negative [facility] Comment on above: Order Comment: Name Collection Type:: Clean-Voided Midstream Performed By: #### H EPATIC, CBC, BMP, LIPASE #### [address] Occult Blood,Urine Negative Normal Negative [facility] Comment on above: Order Comment: Name Collection Type:: Clean-Voided Midstream Result Comment: PERF ORMED BY: [place] [address] PATHOLOGIST REGULATOR OPERATOR ROOSEVELT KEYES M.D. Performed By: #### H EPATIC, CBC, BMP, LIPASE #### [address] pH (U) 6.5 [pH] Normal 5.0-9.0 [facility] Comment on above: Order Comment: Name Collection Type:: Clean-Voided Midstream Performed By: #### H EPATIC, CBC, BMP, LIPASE #### [address] Protein,Urine Negative Normal Negative [facility] Comment on above: Order Comment: Name Collection Type:: Clean-Voided Midstream Performed By: #### H EPATIC, CBC, BMP, LIPASE #### [address] RBC LM.HPF (Urine sed) [#/Area] 0 /[HPF] Normal 0-4 [facility] Comment on above: Order Comment: Name Collection Type:: Clean-Voided Midstream Performed By: #### H EPATIC, CBC, BMP, LIPASE #### [address] Specificy [place],Urine 1.019 Normal 1.001-1.030 [facility] Comment on above: Order Comment: Name Collection Type:: Clean-Voided Midstream Performed By: #### H EPATIC, CBC, BMP, LIPASE #### [address] [place] [address] [place] Squamous Epithelial Cell,Urine 1-2 Normal 0-2 [facility] Comment on above: Order Comment: Name Collection Type:: Clean-Voided Midstream Performed By: #### H EPATIC, CBC, BMP, LIPASE #### [facility] [address] Urobilinogen,Urine Normal Normal Normal [facility] Comment on above: Order Comment: Name Collection Type:: Clean-Voided Midstream Performed By: #### H EPATIC, CBC, BMP, LIPASE #### [facility] [address] WBC,Urine None Seen Normal 0-4 [facility] Comment on above: Order Comment: Name Collection Type:: Clean-Voided Midstream Performed By: #### H EPATIC, CBC, BMP, LIPASE #### [facility] [address] [place] [address] Eosinophils Auto (Bld) [#/Vo l]Ordered By: Conner Griffith on 10-26-2022 Eosinophils (Bld) [#/Vol] 0.2 10*3/uL 0.0-0.45 [facility] Eosinophils/100 WBC Auto (Bl d)Ordered By: Conner Griffith on 10-26-2022 Eosinophils/100 WBC (Bld) 3.3 % . [facility] Erythrocyte distribution wid th Auto (RBC) [Ratio]Ordered By: Conner Griffith on 10-26-2022 Erythrocyte distribution width (RBC) [Ratio] 14.5 % 11.9-15.3 [facility] Estimated glomerular filtrat ion rate (GFR) non- AmericanOrdered By: Conner Griffith on 10-26-2022 GFR/1.73 sq M.predicted among non-blacks MDRD (S/P/Bld) [Vol rate/Area] > 60 mL/Min [facility] Globulin Calc (S) [Mass/Vol] Ordered By: Conner Griffith on 10-26-2022 Globulin (S) [Mass/Vol] 3.2 g/dL [facility] Hematocrit Auto (Bld) [Volum e fraction]Ordered By: Conner Griffith on 10-26-2022 Hematocrit (Bld) [Volume fraction] 36.7 % 34.0-46.4 [facility] Hemoglobin [Mass/volume] in BloodOrdered By: Conner Griffith on 10-26-2022 Hemoglobin (Bld) [Mass/Vol] 12.1 g/dL 11.8-15.4 [facility] Ketones Auto test strip (U) [Mass/Vol]Ordered By: Conner Griffith on 10-26-2022 Ketones (U) [Mass/Vol] Negative Negative [facility] Laboratory - Chemistry and C hemistry - challengeOrdered By: Conner Griffith on 10-26-2022 Lipase [Catalytic activity/Vol] 37.0 U/L [facility] Laboratory - CoagulationOrde red By: Conner Griffith on 10-26-2022 PT Coag (PPP) [Time] 10.6 s 9.0-12.9 [facility] - UrinalysisOrder ed By: Conner Griffith on 10-26-2022 Hyaline casts LM Ql (Urine sed) None seen [LPF] 0-8 [facility] Lactic Acidon 10-26-2022 Lactate [Moles/Vol] 1.0 mmol/L Normal 0.5-2.2 [facility] Comment on above: Result Comment: PERF ORMED BY: [place] [address] PATHOLOGIST REGULATOR OPERATOR ROOSEVELT KEYES M.D. Performed By: #### H EPATIC, CBC, BMP, LIPASE #### [address] Leukocytes [#/volume] correc jun for nucleated erythrocytes in Blood by Automated counOrdered By: Conner Grfifith on 10-26-2022 WBC corrected for nucl RBC Auto (Bld) [#/Vol] 6.3 10*3/uL 3.8-11.6 [facility] Lipaseon 10-26-2022 Lipase [Catalytic activity/Vol] 37.0 U/L Normal [facility] Comment on above: Result Comment: PERF ORMED BY: [address] [place] [address] PATHOLOGIST REGULATOR OPERATOR ROOSEVELT KEYES M.D. Performed By: #### H EPATIC, CBC, BMP, LIPASE #### [facility] [address] Lymphocytes Auto (Bld) [#/Vo l]Ordered By: Conner Griffith on 10-26-2022 Lymphocytes (Bld) [#/Vol] 1.9 10*3/uL 1.00-4.8 [facility] Lymphocytes/100 WBC Auto (Bl d)Ordered By: Conner Griffith on 10-26-2022 Lymphocytes/100 WBC (Bld) 29.7 % . [facility] MCH Auto (RBC) [Entitic mass ]Ordered By: Conner Griffith on 10-26-2022 MCH (RBC) [Entitic mass] 29.3 pg 24.7-34.3 [facility] MCHC Auto (RBC) [Mass/Vol]Or dered By: Conner Griffith on 10-26-2022 MCHC (RBC) [Mass/Vol] 33.1 g/dL 32.0-35.0 [facility] MCV Auto (RBC) [Entitic vol] Ordered By: Conner Griffith on 10-26-2022 MCV (RBC) [Entitic vol] 88.5 fL 80-100 [facility] Monocyte distribution width [Entitic volume] in Blood by AutomatedOrdered By: Conner Griffith on 10-26-2022 Monocyte distribution width Auto (Bld) [Entitic vol] 16.27 % 0.00-20.00 [facility] Monocytes Auto (Bld) [#/Vol] Ordered By: Conner Griffith on 10-26-2022 Monocytes (Bld) [#/Vol] 0.4 10*3/uL 0.0-0.8 [facility] Monocytes/100 WBC Auto (Bld) Ordered By: Conner Griffith on 10-26-2022 Monocytes/100 WBC (Bld) 7.1 % . [facility] Neutrophils Auto (Bld) [#/Vo l]Ordered By: Conner Griffith on 10-26-2022 Neutrophils (Bld) [#/Vol] 3.7 10*3/uL 1.8-7.7 [facility] Neutrophils/100 WBC Auto (Bl d)Ordered By: Conner Griffith on 10-26-2022 Neutrophils/100 WBC (Bld) 59.3 % . [facility] Nitrite Test strip Ql (U)Ord ered By: Conner Griffith on 10-26-2022 Nitrite Ql (U) Negative Negative [facility] No Panel InformationOrdered By: Conner Griffith on 10-26-2022 Estimated GFR () > 60 mL/Min [facility] Comment on above: GFR estimated refere nce range: According to KDOQI guidelines, <60 ml/min/1.73m2 is sufficient to diagnose a patient with chronic kidney disease. Pharmacy Creatinine Clearance (Chem 93.01 [facility] Nucleated erythrocytes [Pres ence] in Blood by Automated countOrdered By: Conner Griffith on 10-26-2022 Nucleated RBC Auto Ql (Bld) 0.3 /100{WBC} 0-0.5 [facility] Partial Thromboplastin Timeo n 10-26-2022 aPTT Coag (Bld) [Time] 30.8 s Normal 25.1-36.5 [facility] Comment on above: Result Comment: PERF ORMED BY: [place] [address] PATHOLOGIST REGULATOR OPERATOR ROOSEVELT KEYES M.D. Performed By: #### H EPATIC, CBC, BMP, LIPASE #### [address] Platelet mean volume Auto (B ld) [Entitic vol]Ordered By: Conner Griffith on 10-26-2022 Platelet mean volume (Bld) [Entitic vol] 7.5 fL 6.3-10.7 [facility] Platelet poor plasma interna tional normalized ratio (INR) by coagulation assay (relatOrdered By: Conner Griffith on 10-26-2022 INR Coag (PPP) [Relative time] 0.9 {INR} [facility] Comment on above: INR Therapeutic Rang e [...] 10-26-2022 Platelets (Bld) [#/Vol] 379 10*3/uL 150-450 [facility] Protein Auto test strip (U) [Mass/Vol]Ordered By: Conner Griffith on 10-26-2022 Protein (U) [Mass/Vol] Negative Negative [facility] Protein [Mass/volume] in Ser um or PlasmaOrdered By: Conner Griffith on 10-26-2022 Protein [Mass/Vol] 6.8 g/dL 6.1-7.9 [facility] Prothrombin Time INRon 10-26 INR Coag (PPP) [Relative time] 0.9 {INR} Normal [facility] Comment on above: Result Comment: INR Therapeutic [...] #### H EPATIC, CBC, BMP, LIPASE #### [facility] [address] [place] [address] [place] PT Coag (PPP) [Time] 10.6 s Normal 9.0-12.9 [facility] Comment on above: Performed By: #### H EPATIC, CBC, BMP, LIPASE #### [facility] [address] [place] [address] [place] RBC Auto (Bld) [#/Vol]Ordere d By: Conner Griffith on 10-26-2022 RBC (Bld) [#/Vol] 4.14 10*6/uL 3.60-5.00 [facility] Serum or plasma alanine cooley otransferase measurement without P-5'-P (enzymatic activiOrdered By: Conner Griffith on 10-26-2022 ALT No additional P-5'-P [Catalytic activity/Vol] 18 U/L 10-60 [facility] Serum or plasma albumin/glob ulin mass ratioOrdered By: Conner Griffith on 10-26-2022 Albumin/Globulin [Mass ratio] 1.1 {ratio} [facility] Serum or plasma alkaline augustin sphatase measurement (enzymatic activity/volume)Ordered By: Conner Griffith on 10-26-2022 ALP [Catalytic activity/Vol] 121 U/L 32-92 [facility] Serum or plasma anion gap de terminationOrdered By: Conner Griffith on 10-26-2022 Anion gap [Moles/Vol] 11.3 mmol/L 6.0-15.0 [facility] Serum or plasma aspartate am inotransferase measurement (enzymatic activity/volume)Ordered By: Conner Griffith on 10-26-2022 AST [Catalytic activity/Vol] 19 U/L 10-42 [facility] Serum or plasma calcium julee urement (mass/volume)Ordered By: Conner Griffith on 10-26-2022 Calcium [Mass/Vol] 8.9 mg/dL 8.2-10.2 [facility] Serum or plasma chloride julio surement (moles/volume)Ordered By: Conner Griffith on 10-26-2022 Chloride [Moles/Vol] 108 mmol/L 95-114 [facility] Serum or plasma glucose julee urement (mass/volume)Ordered By: Conner Griffith on 10-26-2022 Glucose [Mass/Vol] 95 mg/dL 70-100 [facility] Comment on above: ADA recommended refe rence rangeRandom Glucose Reference Range is dependent on time and content of last meal. Glucose of more than 200 mg/dL in a nonstressed, ambulatory subject supports the diagnosis of Diabetes Mellitus. Serum or plasma potassium me asurement (moles/volume)Ordered By: Conner Griffith on 10-26-2022 Potassium [Moles/Vol] 3.4 mmol/L 3.5-5.1 [facility] Serum or plasma sodium measu rement (moles/volume)Ordered By: Conner Griffith on 10-26-2022 Sodium [Moles/Vol] 141 mmol/L 136-146 [facility] Serum or plasma total biliru bin measurement (mass/volume)Ordered By: Conner Griffith on 10-26-2022 Bilirubin [Mass/Vol] 0.4 mg/dL 0.3-1.2 [facility] Serum or plasma total carbon dioxide measurement (moles/volume)Ordered By: Conner Griffith on 10-26-2022 CO2 [Moles/Vol] 25.1 mmol/L 22.0-30.0 [facility] Serum or plasma urea nitroge n measurement (mass/volume)Ordered By: Conner Griffith on 10-26-2022 Urea nitrogen [Mass/Vol] 18 mg/dL 9-23 [facility] Specific gravity Auto test s trip (U) [Rel density]Ordered By: Conner Griffith on 10-26-2022 Specific gravity (U) [Rel density] 1.019 1.001-1.030 [facility] Squamous epithelial cells de tection in urine sediment by light microscopyOrdered By: Conner Griffith on 10-26-2022 Epithelial cells.squamous LM Ql (Urine sed) 1-2 [HPF] 0-2 [facility] Urine bacteria detection by automated methodOrdered By: Conner Griffith on 10-26-2022 Bacteria Auto Ql (U) None seen None Seen [facility] Urine clarity by refractomet ry automatedOrdered By: Conner Griffith on 10-26-2022 Clarity Refractometry automated (U) Clear Clear [facility] Urine glucose measurement by automated test strip (mass/volume)Ordered By: Conner Griffith on 10-26-2022 Glucose Auto test strip (U) [Mass/Vol] Normal mg/dL Normal [facility] Urine hemoglobin detection b y automated test stripOrdered By: Conner Griffith on 10-26-2022 Hemoglobin Auto test strip Ql (U) Negative Negative [facility] Urine lactic acid measuremen tOrdered By: Conner Griffith on 10-26-2022 Lactate (U) [Moles/Vol] 1.0 mmol/L 0.5-2.2 [facility] Urine leukocyte esterase det ection by automated test stripOrdered By: Connerchristelle Griffith on 10-26-2022 Leukocyte esterase Auto test strip Ql (U) 1+ Negative [facility] Urobilinogen Auto test strip (U) [Mass/Vol]Ordered By: Conner Griffith on 10-26-2022 Urobilinogen (U) [Mass/Vol] Normal mg/dL Normal [facility] WBC Auto (Bld) [#/Vol]Ordere d By: Conner Griffith on 10-26-2022 WBC (Bld) [#/Vol] 6.3 10*3/uL 3.8-11.6 [facility] pH Auto test strip (U)Ordere d By: Conner Griffith on 10-26-2022 pH (U) 6.5 [pH] 5.0-9.0 [facility] CBC AUTO DIFFon 09-21-2022 BASO # 0.0 103/ul Normal 0.0-0.1 [facility] Comment on above: Performed By: #### C BC ####[facility] Uskgxqqxoq[address] [place], [place] [address]Dr. Tadeo Smyth Basophils/100 WBC (Bld) 0.4 % Normal 0.2-2.0 The [facility] Comment on above: Performed By: #### C BC ####[facility] Plvefsiegv[address] [place], [place] [address]Dr. Tadeo Haja EO # 0.1 103/ul Normal 0.0-0.7 The [facility] Comment on above: Performed By: #### C BC ####[facility] Pldadfakq[address] [place], [place] [address]Dr. Tadeo Smyth Eosinophils/100 WBC (Bld) 1.8 % Normal 0.9-7.0 The [facility] Comment on above: Performed By: #### C BC ####[facility] Vvhdnjltes[address] [place], [place] [address]Dr. Margotnicole Smyth Erythrocyte distribution width (RBC) [Ratio] 13.8 % Normal 11.0-15.0 The [facility] Comment on above: Performed By: #### C BC ####[facility] [address]ib[address] [place], [place] [id number]. Tadeo Smyth Hematocrit (Bld) [Volume fraction] 41.0 % Normal 36.0-48.0 The [facility] Comment on above: Performed By: #### C BC ####[facility] [address] [place] [address]Dr. Tadeo Smyth Hemoglobin (Bld) [Mass/Vol] 13.3 g/dL Normal 12.0-16.0 The [facility] Comment on above: Performed By: #### C BC ####[facility] Pxplrfrqtr[address] [place], [place] [address]Dr. Tadeo Smyth IG # 0.01 10e3/ul Normal 0.00-0.03 The [facility] Comment on above: Performed By: #### C BC ####[facility] Ayuicpbegl[address] [place], [place] [address]Dr. Tadeo Smyth IG % 0.1 % Normal 0.0-0.5 The [facility] Comment on above: Performed By: #### C BC ####[facility] Hkhqbrnjhu[address] [place], [place] [address]Dr. Tadeo Smyth LYMPH # 1.7 103/ul Normal 1.2-3.8 The [facility] Comment on above: Performed By: #### C BC ####[facility] [address] [place] [address]Dr. Tadeo Smyth Lymphocytes/100 WBC (Bld) 24.8 % Normal 20.5-60.0 The [facility] Comment on above: Performed By: #### C BC ####[facility] [address] [place] [address]DrNeo Smyth MANUAL DIFF REQ NO Normal The [facility] Comment on above: Performed By: #### C BC ####[facility] Aqiperlxop[address] [place], [place] [address]DrNeo Smyth MCH (RBC) [Entitic mass] 29.0 pg Normal 26.7-34.0 The [facility] Comment on above: Performed By: #### C BC ####[facility] Qcsaaafvwb[address] [place], [place] [address]Dr. Tadeo Smyth MCHC (RBC) [Mass/Vol] 32.4 g/dL Normal 29.9-35.2 The [facility] Comment on above: Performed By: #### C BC ####[facility] [address] [place] [id number] Smyth MCV (RBC) [Entitic vol] 89.3 fL Normal 81.0-99.0 The [facility] Comment on above: Performed By: #### C BC ####[facility] Jxgfiqluln[address] [place], [place] [address]DrNeo Smyth MONO # 0.5 103/ul Normal 0.3-0.8 The [facility] Comment on above: Performed By: #### C BC ####[facility] Zhaybtntmt[address] [place], [place] [address]DrNeo Smyth Monocytes/100 WBC (Bld) 6.9 % Normal 1.7-12.0 The [facility] Comment on above: Performed By: #### C BC ####[facility] Hbnfdlqyex[address] [place], [place] [address]Dr. Tadeo Smyth NEUT # 4.5 103/ul Normal 1.4-6.5 The [facility] Comment on above: Performed By: #### C BC ####[facility] Fyuxnjthxb[address] [place], [place] [address]DrNeo Smyth Neutrophils/100 WBC (Bld) 66.0 % Normal 43.0-75.0 The [facility] Comment on above: Performed By: #### C BC ####[facility] Tuyrfgmgtc[address] [place], [place] [address]DrNeo Smyth Platelet mean volume (Bld) [Entitic vol] 8.8 fL Critically low 9.5-13.5 The [facility] Comment on above: Performed By: #### C BC ####[facility] Ghgnfopprj216[address] [place], [place] [address]Dr. Tadeo Smyth PLT 384 103/ul Normal 150-450 The [facility] Comment on above: Performed By: #### C BC ####[facility] Ysiwqtilde[address] [place], [place] [id number] Smyth RBC 4.59 106/ul Normal 4.20-5.40 The [facility] Comment on above: Performed By: #### C BC ####[facility] [address] [place] [address]Dr. Margotnicole Haja WBC 6.8 103/ul Normal 4.0-11.0 The [facility] Comment on above: Performed By: #### C BC ####[facility] Qcjyfldnkp[address] [place], [place] [address]Dr. Tadeo Smyth PROF CHEM 8 (BAS METB)on Anion gap [Moles/Vol] 13.8 mmol/L Normal Th e [facility] Comment on above: Performed By: #### B MP ####[facility] Pppglerstq[address] [place], [place] [address]Dr. Tadeo Smyth Calcium [Mass/Vol] 9.6 mg/dL Normal 8.5-10.1 The [facility] Comment on above: Performed By: #### B MP ####[facility] Pgztjwisri[address] [place], [place] [address]Dr. Tadeo Smyth Chloride [Moles/Vol] 106 mmol/L Normal 98-107 The [facility] Comment on above: Performed By: #### B MP ####[facility] Fkiantrchb[address] [place], [place] [address]Dr. Tadeo Smyth CO2 [Moles/Vol] 25.9 mmol/L Normal 21.0-32.0 The [facility] Comment on above: Performed By: #### B MP ####[facility] Vjjljfupqc[address] [place], [place] [address]Dr. Tadeo Smyth Creatinine [Mass/Vol] 0.92 mg/dL Normal 0.55-1.02 The [facility] Comment on above: Performed By: #### B MP ####[facility] Qvtggcntxq7464[address] [place], [place] [address]Dr. Tadeo Smyth EGFR-AF LUXEMBOURGER >60 Normal >=60 The [facility] Comment on above: Performed By: #### B MP ####[facility] Bnjsabffvj[address] [place], [place] [address]Dr. Tadeo Smyth EGFR-NON AF LUXEMBOURGER >60 Normal >=60 The [facility] Comment on above: Performed By: #### B MP ####[facility] [address]ys[address] [place] [address]Dr. Tadeo Smyth Glucose [Mass/Vol] 98 mg/dL Normal 74-106 The [facility] Comment on above: Performed By: #### B MP ####[facility] [address] [place] [address]Dr. Tadeo Smyth Potassium [Moles/Vol] 3.7 mmol/L Normal 3.5-5.1 The [facility] Comment on above: Performed By: #### B MP ####[facility] Zhchtaxivx[address]25[address] [place], [place] [address]Dr. Tadeo Smyth Sodium [Moles/Vol] 142 mmol/L Normal 136-145 The [facility] Comment on above: Performed By: #### B MP ####[facility] Gvlhpvsvih[address] [place], [place] [address]Dr. Tadeo Smyth Urea nitrogen [Mass/Vol] 19.0 mg/dL Critically high 7.0-18.0 [facility] Comment on above: Performed By: #### B MP ####[facility] Qxqtihcqpe[address] [place], [place] [address]Dr. Tadeo Smyth Urea nitrogen/Creatinine [Mass ratio] 20.7 mg/mg Normal The [facility] Comment on above: Performed By: #### B MP ####[facility] Jeklxrucqs[address] [place], [place] [address]Dr. Tadeo Smyth XR KUB 1 VIEWon 09-21-2022 XR KUB 1 VIEW Normal The [facility] AMYLASEon 09-18-2022 Amylase [Catalytic activity/Vol] 58 U/L Normal 25-115 The [facility] Comment on above: Performed By: #### L IPA, CMP, VIJI ####[facility] [address] [place] [address]Dr. Tadeo Smyth CBC AUTO DIFFon 09-18-2022 BASO # 0.0 103/ul Normal 0.0-0.1 The [facility] Comment on above: Performed By: #### C BC ####[facility] [address] [place] [id number]. Tadeo Smyth Basophils/100 WBC (Bld) 0.3 % Normal 0.2-2.0 The [facility] Comment on above: Performed By: #### C BC ####[facility] [address]wwhjx[address] [place], [place] [id number]. Tadeo Smyth EO # 0.1 103/ul Normal 0.0-0.7 The [facility] Comment on above: Performed By: #### C BC ####[facility] Rzftlupnas[address] [place], [place] [address]Dr. Tadeo Smyth Eosinophils/100 WBC (Bld) 1.8 % Normal 0.9-7.0 The [facility] Comment on above: Performed By: #### C BC ####[facility] Xusnpgqsvk[address] [place], [place] [address]Dr. Tadeo Smyth Erythrocyte distribution width (RBC) [Ratio] 13.7 % Normal 11.0-15.0 [facility] Comment on above: Performed By: #### C BC ####[facility] Yyvetprvbi[address] [place], [place] [address]Dr. Tadeo Smyth Hematocrit (Bld) [Volume fraction] 37.4 % Normal 36.0-48.0 [facility] Comment on above: Performed By: #### C BC ####[facility] [address]ixmgrjybh[address] [place], [place] [address]Dr. Tadeo Smyth Hemoglobin (Bld) [Mass/Vol] 12.3 g/dL Normal 12.0-16.0 The [facility] Comment on above: Performed By: #### C BC ####[facility] Bujkaivgrb[address] [place], [place] [address]Dr. Tadeo Smyth IG # 0.02 10e3/ul Normal 0.00-0.03 The [facility] Comment on above: Performed By: #### C BC ####[facility] Mljijuwgwk[address] [place], [place] [address]Dr. Tadeo Smyth IG % 0.3 % Normal 0.0-0.5 The [facility] Comment on above: Performed By: #### C BC ####[facility] [address]rrhov[address] [place] [id number]. Tadeo Smyth LYMPH # 2.2 103/ul Normal 1.2-3.8 The [facility] Comment on above: Performed By: #### C BC ####[facility] X[address]abqms[address] [place] [id number]. Tadeo Haja Lymphocytes/100 WBC (Bld) 29.3 % Normal 20.5-60.0 The [facility] Comment on above: Performed By: #### C BC ####[facility] [address]vurq[address] [place] [address]Dr. Margotnicole Smyth MANUAL DIFF REQ NO Normal [facility] Comment on above: Performed By: #### C BC ####[facility] Mcfitbavze[address] [place], [place] [address]Dr. Tadeo Haja MCH (RBC) [Entitic mass] 29.0 pg Normal 26.7-34.0 [facility] Comment on above: Performed By: #### C BC ####[facility] Cdexutgtlw[address] [place], [place] [address]Dr. Tadeo Smyth MCHC (RBC) [Mass/Vol] 32.9 g/dL Normal 29.9-35.2 The [facility] Comment on above: Performed By: #### C BC ####[facility] [address] [place] [id number]. Tadeo Haja MCV (RBC) [Entitic vol] 88.2 fL Normal 81.0-99.0 The [facility] Comment on above: Performed By: #### C BC ####[facility] [address] [place], [place] [id number]. Tadeo Haja MONO # 0.5 103/ul Normal 0.3-0.8 The [facility] Comment on above: Performed By: #### C BC ####[facility] [address]csna[address] [place] [id number]. Tadeo Haja Monocytes/100 WBC (Bld) 6.4 % Normal 1.7-12.0 The [facility] Comment on above: Performed By: #### C BC ####[facility] [address] [place] [id number]. Tadeo Smyth NEUT # 4.7 103/ul Normal 1.4-6.5 The [facility] Comment on above: Performed By: #### C BC ####[facility] [address] [place] [id number]. Tadeo Smyth Neutrophils/100 WBC (Bld) 61.9 % Normal 43.0-75.0 The [facility] Comment on above: Performed By: #### C BC ####[facility] [address] [place] [address]Dr. Tadeo Smyth Platelet mean volume (Bld) [Entitic vol] 9.0 fL Critically low 9.5-13.5 [facility] Comment on above: Performed By: #### C BC ####[facility] [address]sm[address] [place] [address]Dr. Tadeo Smyth PLT 395 103/ul Normal 150-450 The [facility] Comment on above: Performed By: #### C BC ####[facility] [address]nwrwwti[address] [place], [place] [address]Dr. Tadeo Smyth RBC 4.24 106/ul Normal 4.20-5.40 The [facility] Comment on above: Performed By: #### C BC ####[facility] Elzmkvvtcn[address] [place], [place] [address]Dr. Tadeo Smyth WBC 7.6 103/ul Normal 4.0-11.0 The [facility] Comment on above: Performed By: #### C BC ####[facility] Psbkwsbtmb[address] [place], [place] [id number]. Tadeo Smyth CT ABD/PELV W CONon 09-18-[address] ABD/PELV W CON Normal The [facility] ER URINE PROFILEon 3 Bilirubin Ql (U) SMALL Abnormal NEGATIVE The [facility] Comment on above: Performed By: #### E NOLAN UMCHINEDURO ####[facility] [address] [place] [address]Dr. Tadeo Smyth Clarity (U) CLEAR Normal CLEAR The [facility] Comment on above: Performed By: #### RANDI MERCHANTICRO ####[facility] [address]suqa[address] [place] [address]Dr. Tadeo Smyth Color (U) DK. YELLOW Normal YELLOW The [facility] Comment on above: Performed By: #### SANDRO MERCHANTRO ####[facility] Zuwrtylupg[address] [place], [place] [address]Dr. Tadeo Smyth ERUAHD A micrscopic examina tion will be performed if indicated. Normal The [facility] Comment on above: Performed By: #### SANDRO MERCHANTRO ####[facility] Ukdybqjtqa[address] [place], [place] [address]Dr. Tadeo Smyth Glucose Ql (U) Negative Normal NEGATIVE The [facility] Comment on above: Performed By: #### SANDRO MERCHANTRO ####[facility] Qdetfkvzwb[address] [place], [place] [address]Dr. Tadeo Smyth Hemoglobin Ql (U) SMALL Abnormal NEGATIVE [facility] Comment on above: Performed By: #### SANDRO MERCHANTRO ####[facility] Gvnyszpclm[address] [place], [place] [address]Dr. Tadeo Smyth Ketones Ql (U) Negative Normal NEGATIVE [facility] Comment on above: Performed By: #### SANDRO MERCHANTRO ####[facility] Uwnvdoamut[address] [place], [place] [address]Dr. Tadeo Smyth LEUKOCYTES Negative Normal NEGATIVE The [facility] Comment on above: Performed By: #### SANDRO MERCHANTRO ####[facility] Kjdnzdtsru[address] [place], [place] [address]Dr. Tadeo Smyth Nitrite Ql (U) Negative Normal NEGATIVE The [facility] Comment on above: Performed By: #### SANDRO MERCHANTRO ####[facility] Gqnjynqwyi[address] [place], [place] [address]Dr. Tadeo Smyth pH (U) 5.5 [pH] Normal 5-9 The [facility] Comment on above: Performed By: #### SANDRO MERCHANTRO ####[facility] Syekciptkl[address] [place], [place] [address]Dr. Tadeo Smyth SPEC GRAVITY >=1.030 Abnormal 1.005-<=1.0 25 The [facility] Comment on above: Performed By: #### KAROL MERCHANT ####[facility] [address]pc[address] [place] [address]Dr. Tadeo Smyth UA PROTEIN TRACE Normal NEGATIVE/ TRACE The [facility] Comment on above: Performed By: #### KAROL MERCHANT ####[facility] [address]mt[address] [place] [address]Dr. Tadeo Smyth UR MICRO IND INDICATED Normal The [facility] Comment on above: Performed By: #### KAROL MERCHANT ####[facility] [address]vciflgo[address] [place], [place] [address]Dr. Tadeo Smyth Urobilinogen Qn (U) 0.2 {Benito'U}/dL Normal 0.2 - 1. 0 The [facility] Comment on above: Performed By: #### KAROL MERCHANT ####[facility] [address]oofrpyozh[address] [place], [place] [address]Dr. Tadeo Smyth LACTATE/LACTIC ACIDon 2022 Lactate [Moles/Vol] 1.1 mmol/L Normal 0.4-1.9 The [facility] Comment on above: Performed By: #### L ACT ####[facility] [address]vhifowgyu[address] [place], [place] [address]Dr. Tadeo Smyth LIPASEon 09-18-2022 Lipase [Catalytic activity/Vol] 75.0 U/L Normal 73.0-393.0 The [facility] Comment on above: Performed By: #### L IPA, CMP, VIJI ####[facility] Xcnztnehnf[address] [place], [place] [address]Dr. Tadeo Smyth PROF 14(COMP METB)on 023 Albumin [Mass/Vol] 3.4 g/dL Normal 3.4-5.0 The [facility] Comment on above: Performed By: #### L IPA, CMP, VIJI ####[facility] Pdwclxvlnn[address] [place], [place] [address]Dr. Tadeo Smyth Albumin/Globulin [Mass ratio] 0.9 {ratio} Normal [facility] Comment on above: Performed By: #### L IPA, CMP, VIJI ####[facility] [address]mbase[address] [place] [address]Dr. Tadeo Smyth ALP [Catalytic activity/Vol] 164 U/L Critically high 46-116 [facility] Comment on above: Performed By: #### L IPA, CMP, VIJI ####[facility] [address]ig[address] [place] [address]Dr. Tadeo Smyth ALT [Catalytic activity/Vol] 29 U/L Normal 14-59 The [facility] Comment on above: Performed By: #### L IPA, CMP, VIJI ####[facility] [address] [place] [address]Dr. Margotnicole Haja Anion gap [Moles/Vol] 12.3 mmol/L Normal [facility] Comment on above: Performed By: #### L IPA, CMP, VIJI ####[facility] [address]gnelxnqm[address] [place], [place] [address]Dr. Tadeo Smyth AST [Catalytic activity/Vol] 30 U/L Normal 15-37 [facility] Comment on above: Performed By: #### L IPA, CMP, VIJI ####[facility] [address]nzpdfl[address] [place] [address]Dr. Tadeo Haja Bilirubin [Mass/Vol] 0.3 mg/dL Normal 0.2-1.0 [facility] Comment on above: Performed By: #### L IPA, CMP, VIJI ####[facility] [address]kv[address] [place] [address]Dr. Tadeo Haja Calcium [Mass/Vol] 8.9 mg/dL Normal 8.5-10.1 The [facility] Comment on above: Performed By: #### L IPA, CMP, VIJI ####[facility] [address]unghb[address] [place] [address]Dr. Margotnicole Smyth Chloride [Moles/Vol] 103 mmol/L Normal 98-107 The [facility] Comment on above: Performed By: #### L IPA, CMP, VIJI ####[facility] [address]sc[address] [place] [id number]. Tadeo Smyth CO2 [Moles/Vol] 27.8 mmol/L Normal 21.0-32.0 The [facility] Comment on above: Performed By: #### L IPA CMP, VIJI ####[facility] [address]xlb[address] [place] [address]Dr. Tadeo Smyth Creatinine [Mass/Vol] 0.89 mg/dL Normal 0.55-1.02 The [facility] Comment on above: Performed By: #### L IPA CMP, VIJI ####[facility] [address]rgcwueaf[address] [place] [address]Dr. Tadeo Smyth EGFR-AF LUXEMBOURGER >60 Normal >=60 The [facility] Comment on above: Performed By: #### L IPA CMP, VIJI ####[facility] Xvkmsckhbs[address] [place] [address]Dr. Tadeo Smyth EGFR-NON AF LUXEMBOURGER >60 Normal >=60 The [facility] Comment on above: Performed By: #### L IPA CMP, VIJI ####[facility] Vbvswwxqhr[address] [place] [address]Dr. Tadeo Smyth Globulin (S) [Mass/Vol] 3.9 g/dL Normal The [facility] Comment on above: Performed By: #### L IPA CMP, VIJI ####[facility] Zfwrjndaud[address] [place] [address]Dr. Tadeo Smyth Glucose [Mass/Vol] 96 mg/dL Normal 74-106 The [facility] Comment on above: Performed By: #### L IPA, CMP, VIJI ####[facility] Surnflnakl[address] [place], [place] [address]Dr. Tadeo Smyth Potassium [Moles/Vol] 4.1 mmol/L Normal 3.5-5.1 The [facility] Comment on above: Performed By: #### L IPA, CMP, VIJI ####[facility] Ntafwetjmi[address] [place] [address]Dr. Tadeo Smyth Protein [Mass/Vol] 7.3 g/dL Normal 6.4-8.2 The [facility] Comment on above: Performed By: #### L IPA, CMP, VIJI ####[facility] Ncgborbzjj[address] [place] [address]Dr. Margotnicole Smyth Sodium [Moles/Vol] 139 mmol/L Normal 136-145 The [facility] Comment on above: Performed By: #### L IPA, CMP, VIJI ####[facility] Qmjciwhbgi35[address] [place] [address]Dr. Tadeo Smyth Urea nitrogen [Mass/Vol] 19.0 mg/dL Critically high 7.0-18.0 The [facility] Comment on above: Performed By: #### L IPA, CMP, VIJI ####[facility] [address]ghbcwwlfw[address] [place], [place] [address]Dr. Margotnicole Haja Urea nitrogen/Creatinine [Mass ratio] 21.3 mg/mg Normal The [facility] Comment on above: Performed By: #### L IPA CMP, VIJI ####[facility] Gtoppekojo[address] [place], [place] [address]Dr. Tadeo Smyth URINE MICROSCOPIC ONLYon BACTERIA TRACE Abnormal NONE SEEN The [facility] Comment on above: Performed By: #### Matthew FRANCISCO UMICRO ####[facility] Hdxequdfbi[address] [place], [place] [address]Dr. Tadeo Smyth Bacteria identified Cx Nom (U) NOT INDICATED Normal The [facility] Comment on above: Performed By: #### Matthew FRANCISCO UMICRO ####[facility] Xoaykosiaw[address] [place], [place] [address]Dr. Tadeo Smyth CAST NONE SEEN Normal NONE SEEN The [facility] Comment on above: Performed By: #### Matthew FRANCISCO UMICRO ####[facility] Gdywjmlygy[address] [place], [place] [address]Dr. Tadeo Smyth Crystals LM Nom (Urine sed) SEEN Abnormal NONE SEEN The [facility] Comment on above: Performed By: #### Matthew FRANCISCO UMICRO ####[facility] Fswblbthak[address] [place] [address]Dr. Tadeo Smyth Epithelial cells LM Ql (Urine sed) RARE Normal NONE SEEN /RARE The [facility] Comment on above: Performed By: #### KAROL MERCHANT ####[facility] Drneuexokh6[address] [place] [id number]. Tadeo Smyth MUCOUS TRACE Abnormal NONE SEEN The [facility] Comment on above: Performed By: #### KAROL MERCHANT ####[facility] Znnudgbxrd4035 [place] [id number]. Tadeo Smyth RBC 0-2 Normal 0-2 The [facility] Comment on above: Performed By: #### KAROL MERCHANT ####[facility] Etkvbzbwxy7684 [place] [id number]. Tadeo Smyth WBC 0-2 Abnormal NONE SEEN The [facility] Comment on above: Performed By: #### KAROL MERCHANT ####[facility] Qbypcvrtje16[address] [place] [address]Dr. Tadeo Smyth CBC AUTO DIFFon 09-14-2022 BASO # 0.0 103/ul Normal 0.0-0.1 The [facility] Comment on above: Performed By: #### C BC ####[facility] Rdnssahrfw[address] [place], [place] [address]Dr. Tadeo Smyth Basophils/100 WBC (Bld) 0.3 % Normal 0.2-2.0 The [facility] Comment on above: Performed By: #### C BC ####[facility] Gyssmoqacn[address] [place], [place] [address]Dr. Tadeo Smyth EO # 0.2 103/ul Normal 0.0-0.7 The [facility] Comment on above: Performed By: #### C BC ####[facility] Qsafbnuagd[address] [place], [place] [id number]. Tadeo Smyth Eosinophils/100 WBC (Bld) 1.1 % Normal 0.9-7.0 The [facility] Comment on above: Performed By: #### C BC ####[facility] Rewdchkban[address] [place] [address]Dr. Tadeo Smyth Erythrocyte distribution width (RBC) [Ratio] 13.7 % Normal 11.0-15.0 The [facility] Comment on above: Performed By: #### C BC ####[facility] Vhftbjgsjv[address] [place] [address]Dr. Tadeo Smyth Hematocrit (Bld) [Volume fraction] 41.3 % Normal 36.0-48.0 The [facility] Comment on above: Performed By: #### C BC ####[facility] Equaemrtwz[address] [place] [address]Dr. Tadeo Smyth Hemoglobin (Bld) [Mass/Vol] 13.6 g/dL Normal 12.0-16.0 The [facility] Comment on above: Performed By: #### C BC ####[facility] Cpdtcefpbg[address] [place], [place] [address]Dr. Tadeo Smyth IG # 0.05 10e3/ul Critically high 0.00-0.03 [facility] Comment on above: Performed By: #### C BC ####[facility] Elknmqkvks[address] [place], [place] [address]Dr. Tadeo Smyth IG % 0.4 % Normal 0.0-0.5 [facility] Comment on above: Performed By: #### C BC ####[facility] Quuududimm[address] [place], [place] [address]Dr. Tadeo Smyth LYMPH # 2.2 103/ul Normal 1.2-3.8 The [facility] Comment on above: Performed By: #### C BC ####[facility] Hnrlcpzyub[address] [place], [place] [address]Dr. Tadeo Smyth Lymphocytes/100 WBC (Bld) 16.3 % Critically low 20.5-60.0 The [facility] Comment on above: Performed By: #### C BC ####[facility] Wkjrphwenz[address] [place], [place] [address]Dr. Tadeo Smyth MANUAL DIFF REQ NO Normal The [facility] Comment on above: Performed By: #### C BC ####[facility] Bouhdjcrdx[address] [place], [place] [address]Dr. Tadeo Smyth MCH (RBC) [Entitic mass] 28.9 pg Normal 26.7-34.0 The [facility] Comment on above: Performed By: #### C BC ####[facility] Cstuzrqrbp90[address] [place] [id number]. Tadeo Smyth MCHC (RBC) [Mass/Vol] 32.9 g/dL Normal 29.9-35.2 The [facility] Comment on above: Performed By: #### C BC ####[facility] Hbyezkziet76[address] [place] [id number]. Tadeo Smyth MCV (RBC) [Entitic vol] 87.9 fL Normal 81.0-99.0 The [facility] Comment on above: Performed By: #### C BC ####[facility] Agdzyiyihw49[address] [place] [id number]. Tadeo Smyth MONO # 0.7 103/ul Normal 0.3-0.8 The [facility] Comment on above: Performed By: #### C BC ####[facility] Glsrwppvjh0638 [place] [id number]. Margotnicole Smyth Monocytes/100 WBC (Bld) 5.1 % Normal 1.7-12.0 The [facility] Comment on above: Performed By: #### C BC ####[facility] Hlgpaixcer65[address] [place] [id number]. Tadeo Smyth NEUT # 10.3 103/ul Critically high 1.4-6.5 The [facility] Comment on above: Performed By: #### C BC ####[facility] Vwqcfejvjy36[address] [place] [id number]. Margotnicole Smyth Neutrophils/100 WBC (Bld) 76.8 % Critically high 43.0-75.0 The [facility] Comment on above: Performed By: #### C BC ####[facility] Scnnlhvsfj[address] [place] [id number]. Tadeo Smyth Platelet mean volume (Bld) [Entitic vol] 8.8 fL Critically low 9.5-13.5 The [facility] Comment on above: Performed By: #### C BC ####[facility] Edgsmvecvh69[address] [place] [id number]. Tadeo Smyth PLT 438 103/ul Normal 150-450 The [facility] Comment on above: Performed By: #### C BC ####[facility] Aabmtonaju[address] [place] [id number]. Tadeo Smyth RBC 4.70 106/ul Normal 4.20-5.40 The [facility] Comment on above: Performed By: #### C BC ####[facility] Woerfkpjzt38[address] [place] [address]Dr. Tadeo Smyth WBC 13.4 103/ul Critically high 4.0-11.0 The [facility] Comment on above: Performed By: #### C BC ####[facility] Btsysolmii[address] [place] [address]Dr. Tadeo Haja ER URINE PROFILEon 3 Bilirubin Ql (U) Negative Normal NEGATIVE The [facility] Comment on above: Performed By: #### KAROL MERCHANT ####[facility] Yoerlusxkd98[address] [place] [address]Dr. Tadeo Smyth Clarity (U) CLEAR Normal CLEAR The [facility] Comment on above: Performed By: #### KAROL MERCHANT ####[facility] Nilfyzamdr[address] [place], [place] [address]Dr. Tadeo Haja Color (U) LT. YELLOW Normal YELLOW The [facility] Comment on above: Performed By: #### KAROL MERCHANT ####[facility] Pvgjbfhdvk[address] [place], [place] [address]Dr. Tadeo Smyth ERUAHD A micrscopic examina tion will be performed if indicated. Normal The [facility] Comment on above: Performed By: #### KAROL MERCHANT ####[facility] Uigjhxzpse[address] [place] [address]Dr. Margotnicole Smyth Glucose Ql (U) Negative Normal NEGATIVE The [facility] Comment on above: Performed By: #### KAROL MERCHANT ####[facility] Ryosbbhbbz[address] [place], [place] [address]Dr. Tadeo Haja Hemoglobin Ql (U) TRACE-INTACT Abnormal NEGATIVE The [facility] Comment on above: Performed By: #### KAROL MERCHANT ####[facility] Yzzpuyfizh[address] [place], [place] [address]Dr. Tadeo Smyth Ketones Ql (U) Negative Normal NEGATIVE The [facility] Comment on above: Performed By: #### SANDRO MERCHANTRO ####[facility] Ekznsgwgsa39[address] [place] [address]Dr. Tadeo Smyth LEUKOCYTES Negative Normal NEGATIVE [facility] Comment on above: Performed By: #### RANDI MERCHANTICRO ####[facility] Dlmopirhdw364[address] [place] [address]Dr. Margotnicole Haja Nitrite Ql (U) Negative Normal NEGATIVE The [facility] Comment on above: Performed By: #### SANDRO MERCHANTRO ####[facility] Gsfarxiffh[address] [place], [place] [address]Dr. Tadeo Smyth pH (U) 6.5 [pH] Normal 5-9 [facility] Comment on above: Performed By: #### SANDRO MERCHANTRO ####[facility] [address]eyqthwxbw[address] [place], [place] [address]Dr. Tadeo Smyth SPEC GRAVITY 1.020 Normal 1.005-<=1.0 25 [facility] Comment on above: Performed By: #### SANDRO MERCHANTRO ####[facility] Afaeftlfeq[address] [place], [place] [address]Dr. Tadeo Smyth UA PROTEIN Negative Normal NEGATIVE/ TRACE The [facility] Comment on above: Performed By: #### SANDRO MERCHANTRO ####[facility] Xfrfcesogr[address] [place], [place] [address]Dr. Tadeo Smyth UR MICRO IND INDICATED Normal The [facility] Comment on above: Performed By: #### SANDRO MERCHANTRO ####[facility] Smkoadgyuh[address] [place], [place] [address]Dr. Tadeo Smyth Urobilinogen Qn (U) 0.2 {Benito'U}/dL Normal 0.2 - 1. 0 [facility] Comment on above: Performed By: #### SANDRO MERCHANTRO ####[facility] Htnnzdkrfz[address] [place], [place] [address]Dr. Tadeo Smyth LIPASEon 09-14-2022 Lipase [Catalytic activity/Vol] 117.0 U/L Normal 73.0-393.0 [facility] Comment on above: Performed By: #### H STROPN, CMP, LIPA ####[facility] Tfwscenrlz[address] [place] [address]Dr. Tadeo Smyth PROF 14(COMP METB)on 023 Albumin [Mass/Vol] 3.5 g/dL Normal 3.4-5.0 [facility] Comment on above: Performed By: #### H STROPN, CMP, LIPA ####[facility] Wvaqmptrpi9[address] [place] [address]Dr. Tadeo Smyth Albumin/Globulin [Mass ratio] 0.8 {ratio} Normal [facility] Comment on above: Performed By: #### H STROPN, CMP, LIPA ####[facility] Xhguhrbokv[address] [place] [address]Dr. Tadeo Smyth ALP [Catalytic activity/Vol] 180 U/L Critically high 46-116 [facility] Comment on above: Performed By: #### H STROPN, CMP, LIPA ####[facility] Cqrqyapbku79[address] [place] [address]Dr. Tadeo Smyth ALT [Catalytic activity/Vol] 25 U/L Normal 14-59 [facility] Comment on above: Performed By: #### H STROPN, CMP, LIPA ####[facility] Eioftfhpei26[address] [place] [address]Dr. Tadeo Smyth Anion gap [Moles/Vol] 14.4 mmol/L Normal [facility] Comment on above: Performed By: #### H STROPN, CMP, LIPA ####[facility] Hdhpseitig3241 [place] [address]Dr. Tadeo Smyth AST [Catalytic activity/Vol] 14 U/L Critically low 15-37 [facility] Comment on above: Performed By: #### H STROPN, CMP, LIPA ####[facility] Zsggxddkxq2146 [place] [address]Dr. Tadeo Smyth Bilirubin [Mass/Vol] 0.2 mg/dL Normal 0.2-1.0 [facility] Comment on above: Performed By: #### H STROPN, CMP, LIPA ####[facility] Omzxwhhlfz0[address] [place] [address]Dr. Tadeo Smyth Calcium [Mass/Vol] 9.4 mg/dL Normal 8.5-10.1 The [facility] Comment on above: Performed By: #### H STROPN, CMP, LIPA ####[facility] Odrsqyxlci3[address] [place] [address]Dr. Tadeo Smyth Chloride [Moles/Vol] 107 mmol/L Normal 98-107 The [facility] Comment on above: Performed By: #### H STROPN, CMP, LIPA ####[facility] Zzcsrjqbwr[address] [place], [place] [address]Dr. Tadeo Smyth CO2 [Moles/Vol] 23.9 mmol/L Normal 21.0-32.0 The [facility] Comment on above: Performed By: #### H STROPN, CMP, LIPA ####[facility] Uqwqgaxcqd[address] [place], [place] [address]Dr. Tadeo Smyth Creatinine [Mass/Vol] 0.91 mg/dL Normal 0.55-1.02 The [facility] Comment on above: Performed By: #### H STROPN, CMP, LIPA ####[facility] [address]sjwluufio[address] [place], [place] [address]Dr. Tadeo Smyth EGFR-AF LUXEMBOURGER >60 Normal >=60 The [facility] Comment on above: Performed By: #### H STROPN, CMP, LIPA ####[facility] Pmjnkgvgpp[address] [place] [address]Dr. Tadeo Smyth EGFR-NON AF LUXEMBOURGER >60 Normal >=60 The [facility] Comment on above: Performed By: #### H STROPN, CMP, LIPA ####[facility] [address]vwivyffyr[address] [place], [place] [address]Dr. Tadeo Smyth Globulin (S) [Mass/Vol] 4.2 g/dL Normal The [facility] Comment on above: Performed By: #### H STROPN, CMP, LIPA ####[facility] Trschacegv[address] [place] [address]Dr. Tadeo Smyth Glucose [Mass/Vol] 101 mg/dL Normal 74-106 The [facility] Comment on above: Performed By: #### H STROPN, CMP, LIPA ####[facility] Kkewrawgsh[address] [place] [address]Dr. Tadeo Smyth Potassium [Moles/Vol] 3.3 mmol/L Critically low 3.5-5.1 The [facility] Comment on above: Performed By: #### H STROPN, CMP, LIPA ####[facility] Ptmvsuoofl62[address] [place] [address]Dr. Tadeo Smyth Protein [Mass/Vol] 7.7 g/dL Normal 6.4-8.2 The [facility] Comment on above: Performed By: #### H STROPN, CMP, LIPA ####[facility] Jyppckjbkx35[address] [place] [address]Dr. Tadeo Smyth Sodium [Moles/Vol] 142 mmol/L Normal 136-145 The [facility] Comment on above: Performed By: #### H STROPN, CMP, LIPA ####[facility] Gzcifcfzto95[address] [place] [address]Dr. Tadeo Smyth Urea nitrogen [Mass/Vol] 17.0 mg/dL Normal 7.0-18.0 The [facility] Comment on above: Performed By: #### H STROPN, CMP, LIPA ####[facility] Cqhlwazody20[address] [place] [address]Dr. Tadeo Smyth Urea nitrogen/Creatinine [Mass ratio] 18.7 mg/mg Normal The [facility] Comment on above: Performed By: #### H STROPN, CMP, LIPA ####[facility] Amjkwcccor[address] [place] [address]Dr. Tadeo Smyth TROPONIN, HIGH SENSITIVITYon 09-14-2022 HSTROP 46.6 pg/mL Normal 4.0-51.3 The [facility] Comment on above: Result Comment: CUT- OFF POINTS HAVE BEEN ESTABLISHED BASED ON THE FOURTH UNIVERSAL DEFINITIONS OF MYOCARDIALINFARCTION. THE UPPER REFERENCE LIMIT (URL) OF TROPONIN, DEFINED THE 99TH PERCENTILE OFcTnI DISTRIBUTION IN A REFERENCE POPULATION, HAS BEEN CONFIRMED THE DECISION THRESHOLDFOR ID DIAGNOSIS. Performed By: #### H STROPN, CMP, LIPA ####[facility] Nhhvybqdbt[address] [place] [address]Dr. Tadeo Smyth URINE MICROSCOPIC ONLYon BACTERIA NONE SEEN Normal NONE SEEN The [facility] Comment on above: Performed By: #### E RUR, UMICRO ####[facility] Icwxwklbap[address] [place] [address]Dr. Tadeo Smyth Bacteria identified Cx Nom (U) NOT INDICATED Normal The [facility] Comment on above: Performed By: #### E RUR, UMICRO ####[facility] [address]wvnnsdqml[address] [place], [place] [address]Dr. Tadeo Smyth CAST NONE SEEN Normal NONE SEEN The [facility] Comment on above: Performed By: #### E RUR, UMICRO ####[facility] Hlpsbqobpd[address] [place], [place] [address]Dr. Tadeo Smyth Crystals LM Nom (Urine sed) NONE SEEN Normal NONE SEEN The [facility] Comment on above: Performed By: #### E RUR, UMICRO ####[facility] Blvaqjszcl[address] [place], [place] [address]Dr. Tadeo Smyth Epithelial cells LM Ql (Urine sed) FEW Abnormal NONE SEEN /RARE The [facility] Comment on above: Performed By: #### E RUR, UMICRO ####[facility] [address]vcxqlfelw[address] [place], [place] [address]Dr. Tadeo Smyth MUCOUS MODERATE Abnormal NONE SEEN The [facility] Comment on above: Performed By: #### E RUR, UMICRO ####[facility] [address]hadfasnqa[address] [place], [place] [address]Dr. Tadeo Smyth RBC 0-2 Normal 0-2 The [facility] Comment on above: Performed By: #### E RUR, UMICRO ####[facility] [address]scwmdqksr[address] [place], [place] [address]Dr. Tadeo Smyth WBC NONE SEEN Normal NONE SEEN The [facility] Comment on above: Performed By: #### E RUR, UMICRO ####[facility] Rqxiuspqgh7258 [place] [id number]. Tadeo Smyth XR ABD FLAT UP_PA Kasey 09-14 XR ABD FLAT UP_PA CH Normal The [facility] VC COMP CONSULTATIONon 09-06 VC COMP CONSULTATION Normal The [facility] VC VENOUS REFLUX MACARIO LMTon 0 09-06-2022 VC VENOUS REFLUX MACARIO LMT Normal The [facility] XR KUB 1 VIEWon 08-18-2022 XR KUB 1 VIEW Normal The [facility] US RUBENS DOP LEG RTon 08-11-20 US RUBENS DOP LEG RT Normal The [facility] AMYLASEon 08-08-2022 Amylase [Catalytic activity/Vol] 64 U/L Normal 25-115 The [facility] Comment on above: Performed By: #### C MP, VIJI, LIPA, CMADM ####[facility] Wsfzceiszj[address] [place] [address]Dr. Tadeo Smyth CARDIAC NORA ADMITon 022 CK [Catalytic activity/Vol] 127 U/L Normal 26-192 The [facility] Comment on above: Performed By: #### C MP, VIJI, LIPA, CMADM ####[facility] Btpgwylfvm60[address] [place] [address]Dr. Tadeo Smyth CK.MB [Mass/Vol] 1.71 ng/mL Normal <=3.60 The [facility] Comment on above: Performed By: #### C MP, VIJI, LIPA, CMADM ####[facility] [address]emsrbjdd[address] [place] [address]Dr. Tadeo Smyth HSTROP 36.7 pg/mL Normal 4.0-51.3 The [facility] Comment on above: Result Comment: CUT- OFF POINTS HAVE BEEN ESTABLISHED BASED ON THE FOURTH UNIVERSAL DEFINITIONS OF MYOCARDIALINFARCTION. THE UPPER REFERENCE LIMIT (URL) OF TROPONIN, DEFINED THE 99TH PERCENTILE OFcTnI DISTRIBUTION IN A REFERENCE POPULATION, HAS BEEN CONFIRMED THE DECISION THRESHOLDFOR ID DIAGNOSIS. Performed By: #### C MP, VIJI, LIPA, CMADM ####[facility] Gjxunduwbb[address] [place] [address]Dr. Tadeo Smyth AAKASH 23 ng/mL Normal 9-82 The [facility] Comment on above: Performed By: #### C MP, VIJI, LIPA, CMADM ####[facility] Nzvntmtmkk4[address] [place] [address]Dr. Tadeo Haja CBC AUTO DIFFon 08-08-2022 BASO # 0.0 103/ul Normal 0.0-0.1 The [facility] Comment on above: Performed By: #### C BC ####[facility] Hvrueiupkx[address] [place], [place] [address]Dr. Tadeo Smyth Basophils/100 WBC (Bld) 0.4 % Normal 0.2-2.0 The [facility] Comment on above: Performed By: #### C BC ####[facility] Urfqmvwoxf[address] [place], [place] [address]Dr. Tadeo Smyth EO # 0.1 103/ul Normal 0.0-0.7 The [facility] Comment on above: Performed By: #### C BC ####[facility] [address]vsyjnfua[address] [place], [place] [address]Dr. Margotnicole Smyth Eosinophils/100 WBC (Bld) 1.5 % Normal 0.9-7.0 The [facility] Comment on above: Performed By: #### C BC ####[facility] Jdcptceywo[address] [place], [place] [address]Dr. Tadeo Haja Erythrocyte distribution width (RBC) [Ratio] 13.5 % Normal 11.0-15.0 The [facility] Comment on above: Performed By: #### C BC ####[facility] [address]vpbd[address]fbt[address] [place], [place] [address]Dr. Tadeo Smyth Hematocrit (Bld) [Volume fraction] 37.0 % Normal 36.0-48.0 The [facility] Comment on above: Performed By: #### C BC ####[facility] [address]ovfskvlk[address] [place], [place] [address]Dr. Tadeo Smyth Hemoglobin (Bld) [Mass/Vol] 12.0 g/dL Normal 12.0-16.0 The [facility] Comment on above: Performed By: #### C BC ####[facility] Vdtrqlloel[address] [place] [address]Dr. Tadeo Smyth IG # 0.02 10e3/ul Normal 0.00-0.03 The [facility] Comment on above: Performed By: #### C BC ####[facility] Qkbopczfrq[address] [place] [address]Dr. Tadeo Smyth IG % 0.3 % Normal 0.0-0.5 [facility] Comment on above: Performed By: #### C BC ####[facility] Vddjntokxp[address] [place], [place] [address]DrNeo Smyth LYMPH # 2.0 103/ul Normal 1.2-3.8 The [facility] Comment on above: Performed By: #### C BC ####[facility] Rbrqbwxosf[address] [place], [place] [address]DrNeo Smyth Lymphocytes/100 WBC (Bld) 27.9 % Normal 20.5-60.0 [facility] Comment on above: Performed By: #### C BC ####[facility] Yywcrgwfzl[address] [place], [place] [address]DrNeo Smyth MANUAL DIFF REQ NO Normal The [facility] Comment on above: Performed By: #### C BC ####[facility] Lbjbltbdtx525[address] [place], [place] [address]DrNeo Smyth MCH (RBC) [Entitic mass] 28.9 pg Normal 26.7-34.0 [facility] Comment on above: Performed By: #### C BC ####[facility] Gvscwfwrjk[address] [place], [place] [address]DrNeo Smyth MCHC (RBC) [Mass/Vol] 32.4 g/dL Normal 29.9-35.2 The [facility] Comment on above: Performed By: #### C BC ####[facility] Hudohqolcd6[address] [place], [place] [address]DrNeo Smyth MCV (RBC) [Entitic vol] 89.2 fL Normal 81.0-99.0 The [facility] Comment on above: Performed By: #### C BC ####[facility] Fduepntcgs24[address] [place], [place] [address]DrNeo Smyth MONO # 0.5 103/ul Normal 0.3-0.8 The [facility] Comment on above: Performed By: #### C BC ####[facility] [address]ddjran[address] [place] [address]Dr. Tadeo Smyth Monocytes/100 WBC (Bld) 6.7 % Normal 1.7-12.0 The [facility] Comment on above: Performed By: #### C BC ####[facility] Rbzyhwaync38[address] [place] [address]Dr. Tadeo Smyth NEUT # 4.5 103/ul Normal 1.4-6.5 The [facility] Comment on above: Performed By: #### C BC ####[facility] Gkibkiyilb98[address] [place], [place] [address]Dr. Tadeo Smyth Neutrophils/100 WBC (Bld) 63.2 % Normal 43.0-75.0 The [facility] Comment on above: Performed By: #### C BC ####[facility] Yzvlmlemhd030[address] [place], [place] [address]Dr. Tadeo Smyth Platelet mean volume (Bld) [Entitic vol] 9.0 fL Critically low 9.5-13.5 The [facility] Comment on above: Performed By: #### C BC ####[facility] Wpiohmbbtg[address] [place], [place] [address]Dr. Tadeo Smyth PLT 382 103/ul Normal 150-450 The [facility] Comment on above: Performed By: #### C BC ####[facility] Qduzdfnnck9[address] [place], [place] [id number]. Tadeo Smyth RBC 4.15 106/ul Critically low 4.20-5.40 The [facility] Comment on above: Performed By: #### C BC ####[facility] Aqdvnuiqfs2499[address] [place], [place] [address]Dr. Tadeo Smyth WBC 7.1 103/ul Normal 4.0-11.0 The [facility] Comment on above: Performed By: #### C BC ####[facility] Wcdxzvzvpo105[address] [place], [place] [address]Dr. Tadeo Smyth CT ABD/PELV W CONon 08-08-[address] ABD/PELV W CON Normal The [facility] ER URINE PROFILEon 2 Bilirubin Ql (U) Negative Normal NEGATIVE The [facility] Comment on above: Performed By: #### KAROL MERCHANT ####[facility] Eqoyfpkitz3868[address] [place], [place] [address]Dr. Tadeo Smyth Clarity (U) CLEAR Normal CLEAR The [facility] Comment on above: Performed By: #### KAROL MERCHANT ####[facility] Zxkmddppuw628[address] [place], [place] [address]Dr. Tadeo Smyth Color (U) YELLOW Normal YELLOW The [facility] Comment on above: Performed By: #### KAROL MERCHANT ####[facility] Buapnmkqnd412[address] [place], [place] [address]Dr. Tadeo Smyth ERUAHD A micrscopic examina tion will be performed if indicated. Normal The [facility] Comment on above: Performed By: #### KAROL MERCHANT ####[facility] Uxxfrncoyx619[address] [place], [place] [address]Dr. Tadeo Smyth Glucose Ql (U) Negative Normal NEGATIVE The [facility] Comment on above: Performed By: #### KAROL MERCHANT ####[facility] Vhlgbhjjse[address] [place], [place] [address]Dr. Tadeo Smyth Hemoglobin Ql (U) TRACE-LYSED Abnormal NEGATIVE The [facility] Comment on above: Performed By: #### KAROL MERCHANT ####[facility] Cizeztjbpf184[address] [place], [place] [address]Dr. Tadeo Smyth Ketones Ql (U) TRACE Abnormal NEGATIVE The [facility] Comment on above: Performed By: #### KAROL MERCHANT ####[facility] Ptvtriqotq650[address] [place], [place] [address]Dr. Tadeo Smyth LEUKOCYTES Negative Normal NEGATIVE The [facility] Comment on above: Performed By: #### KAROL MERCHANT ####[facility] Nwuaxgjvjv207[address] [place], [place] [address]Dr. Tadeo Smyth Nitrite Ql (U) Negative Normal NEGATIVE The [facility] Comment on above: Performed By: #### SANDRO MERCHANTRO ####[facility] Ompkafacla[address] [place] [address]Dr. Tadeo Smyth pH (U) 6.0 [pH] Normal 5-9 [facility] Comment on above: Performed By: #### SANDRO MERCHANTRO ####[facility] Vsjouaqabt[address] [place] [address]Dr. Tadeo Smyth SPEC GRAVITY >=1.030 Abnormal 1.005-<=1.0 25 [facility] Comment on above: Performed By: #### SANDRO MERCHANTRO ####[facility] Wvnedyqlmd76[address] [place] [address]Dr. Tadeo Smyth UA PROTEIN TRACE Normal NEGATIVE/ TRACE The [facility] Comment on above: Performed By: #### SANDRO MERCHANTRO ####[facility] Yxuhmhjyxg[address] [place], [place] [address]Dr. Tadeo Smyth UR MICRO IND INDICATED Normal The [facility] Comment on above: Performed By: #### SANDRO MERCHANTRO ####[facility] Aftygdgpve4055[address] [place], [place] [address]Dr. Tadeo Smyth Urobilinogen Qn (U) 0.2 {Benito'U}/dL Normal 0.2 - 1. 0 [facility] Comment on above: Performed By: #### SANDRO MERCHANTRO ####[facility] E[address]pvjvpwz[address] [place] [address]Dr. Tadeo Smyth LACTATE/LACTIC ACIDon 2021 Lactate [Moles/Vol] 1.3 mmol/L Normal 0.4-1.9 The [facility] Comment on above: Performed By: #### L ACT ####[facility] Gbrmafacrl[address] [place], [place] [address]Dr. Tadeo Smyth LIPASEon 08-08-2022 Lipase [Catalytic activity/Vol] 120.0 U/L Normal 73.0-393.0 [facility] Comment on above: Performed By: #### C MP, VIJI, LIPA, CMADM ####[facility] Jrribjecoi[address] [place] [address]Dr. Tadeo Smyth PROF 14(COMP METB)on 022 Albumin [Mass/Vol] 3.8 g/dL Normal 3.4-5.0 [facility] Comment on above: Performed By: #### C MP, VIJI, LIPA, CMADM ####[facility] Owjzcdautg20[address] [place] [address]Dr. Tadeo Smyth Albumin/Globulin [Mass ratio] 1.1 {ratio} Normal [facility] Comment on above: Performed By: #### C MP, VIJI, LIPA, CMADM ####[facility] Esgzyaaeom3[address] [place] [address]Dr. Tadeo Smyth ALP [Catalytic activity/Vol] 145 U/L Critically high 46-116 [facility] Comment on above: Performed By: #### C MP, VIJI, LIPA, CMADM ####[facility] Zfmhbtfvru44[address] [place] [address]Dr. Tadeo Smyth ALT [Catalytic activity/Vol] 30 U/L Normal 14-59 [facility] Comment on above: Performed By: #### C MP, VIJI, LIPA, CMADM ####[facility] Jmmzrwhyvh9[address] [place] [address]Dr. Tadeo Smyth Anion gap [Moles/Vol] 11.5 mmol/L Normal [facility] Comment on above: Performed By: #### C MP, VIJI, LIPA, CMADM ####[facility] Penygliuyw[address] [place] [address]Dr. Tadeo Smyth AST [Catalytic activity/Vol] 17 U/L Normal 15-37 [facility] Comment on above: Performed By: #### C MP, VIJI, LIPA, CMADM ####[facility] Rcrlfdkabv01[address] [place] [address]Dr. Tadeo Smyth Bilirubin [Mass/Vol] 0.1 mg/dL Critically low 0.2-1.0 [facility] Comment on above: Performed By: #### C MP, VIJI, LIPA, CMADM ####[facility] Siulbqgpzk[address] [place] [address]Dr. Tadeo Smyth Calcium [Mass/Vol] 8.9 mg/dL Normal 8.5-10.1 The [facility] Comment on above: Performed By: #### C MP, VIJI, LIPA, CMADM ####[facility] Vkrxhlnrlx28[address] [place] [address]Dr. Tadeo Smyth Chloride [Moles/Vol] 104 mmol/L Normal 98-107 The [facility] Comment on above: Performed By: #### C MP, VIJI, LIPA, CMADM ####[facility] Xsusrmyamn[address] [place] [address]Dr. Tadeo Smyth CO2 [Moles/Vol] 27.2 mmol/L Normal 21.0-32.0 The [facility] Comment on above: Performed By: #### C MP, VIJI, LIPA, CMADM ####[facility] Rqroyunvub[address] [place], [place] [address]Dr. Tadeo Smyth Creatinine [Mass/Vol] 0.90 mg/dL Normal 0.55-1.02 The [facility] Comment on above: Performed By: #### C MP, VIJI, LIPA, CMADM ####[facility] Gkotkzlpph[address] [place], [place] [address]Dr. Tadeo Smyth EGFR-AF LUXEMBOURGER >60 Normal >=60 The [facility] Comment on above: Performed By: #### C MP, VIJI, LIPA, CMADM ####[facility] Cyngtuctmd[address] [place], [place] [address]Dr. Tadeo Smyth EGFR-NON AF LUXEMBOURGER >60 Normal >=60 The [facility] Comment on above: Performed By: #### C MP, VIJI, LIPA, CMADM ####[facility] W[address]csqzvjgw[address] [place], [place] [address]Dr. Tadeo Smyth Globulin (S) [Mass/Vol] 3.5 g/dL Normal The [facility] Comment on above: Performed By: #### C MP, VIJI, LIPA, CMADM ####[facility] [address]qebzguwip[address] [place] [address]Dr. Tadeo Smyth Glucose [Mass/Vol] 98 mg/dL Normal 74-106 The [facility] Comment on above: Performed By: #### C MP, VIJI, LIPA, CMADM ####[facility] Rjtfycuhet45[address] [place] [address]Dr. Tadeo Smyth Potassium [Moles/Vol] 3.7 mmol/L Normal 3.5-5.1 The [facility] Comment on above: Performed By: #### C MP, VIJI, LIPA, CMADM ####[facility] Otawqjwnqg34[address] [place] [address]Dr. Tadeo Smyth Protein [Mass/Vol] 7.3 g/dL Normal 6.4-8.2 The [facility] Comment on above: Performed By: #### C MP, VIJI, LIPA, CMADM ####[facility] Ndmfdzjkvw29[address] [place] [address]Dr. Tadeo Smyth Sodium [Moles/Vol] 139 mmol/L Normal 136-145 The [facility] Comment on above: Performed By: #### C MP, VIJI, LIPA, CMADM ####[facility] Aulafztmfo[address] [place] [address]Dr. Tadeo Smyth Urea nitrogen [Mass/Vol] 25.0 mg/dL Critically high 7.0-18.0 The [facility] Comment on above: Performed By: #### C MP, VIJI, LIPA, CMADM ####[facility] Pnfohinaam[address] [place] [address]Dr. Tadeo Smyth Urea nitrogen/Creatinine [Mass ratio] 27.8 mg/mg Normal The [facility] Comment on above: Performed By: #### C MP, VIJI, LIPA, CMADM ####[facility] Efswkhfrbe[address] [place] [address]Dr. Tadeo Smyth URINE MICROSCOPIC ONLYon BACTERIA NONE SEEN Normal NONE SEEN The [facility] Comment on above: Performed By: #### KAROL MERCHANT ####[facility] Aqodjhjtub230[address] [place] [address]Dr. Tadeo Smyth Bacteria identified Cx Nom (U) NOT INDICATED Normal The [facility] Comment on above: Performed By: #### Matthew FRANCISCO UMICRO ####[facility] Krxuhwpshx98[address] [place] [address]Dr. Margotnicole Smyth CAST NONE SEEN Normal NONE SEEN The [facility] Comment on above: Performed By: #### Matthew FRANCISCO UMICRO ####[facility] Nloxjjdzsx0698 [place] [address]Dr. Tadeo Smyth Crystals LM Nom (Urine sed) NONE SEEN Normal NONE SEEN The [facility] Comment on above: Performed By: #### Matthew FRANCISCO UMICRO ####[facility] Ktlccaatfh48[address] [place] [address]Dr. Tadeo Smyth Epithelial cells LM Ql (Urine sed) FEW Abnormal NONE SEEN /RARE The [facility] Comment on above: Performed By: #### Matthew FRANCISCO UMICRO ####[facility] Nayskztqcq12[address] [place], [place] [address]Dr. Margotnicole Smyth MUCOUS NONE SEEN Normal NONE SEEN The [facility] Comment on above: Performed By: #### Matthew FRANCISCO ICRO ####[facility] Zwjzxlzmrs[address] [place], [place] [address]Dr. Tadeo Smyth RBC 2-5 Abnormal 0-2 The [facility] Comment on above: Performed By: #### Matthew FRANCISCO ICRO ####[facility] Rtcqwnqgfo[address] [place], [place] [address]Dr. Tadeo Smyth WBC NONE SEEN Normal NONE SEEN The [facility] Comment on above: Performed By: #### Matthew FRANCISCO ICRO ####[facility] Pndvhtwlce[address] [place], [place] [address]Dr. Tadeo Smyth AMYLASEon 07-21-2022 Amylase [Catalytic activity/Vol] 49 U/L Normal 25-115 The [facility] Comment on above: Performed By: #### L IPA, VIJI, CMP ####[facility] Oyhdcytwqv[address] [place], [place] [address]Dr. Tadeo Smyth CBC AUTO DIFFon 07-21-2022 BASO # 0.0 103/ul Normal 0.0-0.1 [facility] Comment on above: Performed By: #### C BC ####[facility] Dgyhwlqywn4098 [place] [id number]. Tadeo Smyth Basophils/100 WBC (Bld) 0.6 % Normal 0.2-2.0 The [facility] Comment on above: Performed By: #### C BC ####[facility] [address]pxxlhrtwe[address] [place], [place] [address]Dr. Tadeo Smyth EO # 0.2 103/ul Normal 0.0-0.7 The [facility] Comment on above: Performed By: #### C BC ####[facility] Gwnxsxzsov65[address] [place], [place] [address]Dr. Tadeo Smyth Eosinophils/100 WBC (Bld) 3.1 % Normal 0.9-7.0 The [facility] Comment on above: Performed By: #### C BC ####[facility] Yhfcmrsmpk475[address] [place], [place] [address]Dr. Tadeo Smyth Erythrocyte distribution width (RBC) [Ratio] 13.2 % Normal 11.0-15.0 The [facility] Comment on above: Performed By: #### C BC ####[facility] Tvutpnkdzw07[address] [place], [place] [address]Dr. Tadeo Smyth Hematocrit (Bld) [Volume fraction] 35.7 % Critically low 36.0-48.0 [facility] Comment on above: Performed By: #### C BC ####[facility] Tonloiinra8[address] [place], [place] [address]Dr. Tadeo Smyth Hemoglobin (Bld) [Mass/Vol] 11.6 g/dL Critically low 12.0-16.0 The [facility] Comment on above: Performed By: #### C BC ####[facility] Lduuxpvqhj72[address] [place], [place] [address]Dr. Tadeo Smyth IG # 0.01 10e3/ul Normal 0.00-0.03 The [facility] Comment on above: Performed By: #### C BC ####[facility] Rxgbykqfti0833[address] [place], [place] [address]Dr. Tadeo Smyth IG % 0.2 % Normal 0.0-0.5 The [facility] Comment on above: Performed By: #### C BC ####[facility] Udsbzaoxpr2320 [place] [id number]. Tadeo Smyth LYMPH # 1.9 103/ul Normal 1.2-3.8 The [facility] Comment on above: Performed By: #### C BC ####[facility] Vxnvbegobr7764 [place] [id number]. Tadeo Smyth Lymphocytes/100 WBC (Bld) 34.8 % Normal 20.5-60.0 The [facility] Comment on above: Performed By: #### C BC ####[facility] Egfxyiemlh9526 [place] [address]Dr. Tadeo Smyth MANUAL DIFF REQ NO Normal The [facility] Comment on above: Performed By: #### C BC ####[facility] Wkfaknirjj[address] [place], [place] [address]Dr. Tadeo Smyth MCH (RBC) [Entitic mass] 29.1 pg Normal 26.7-34.0 The [facility] Comment on above: Performed By: #### C BC ####[facility] Owsftqzvlz[address] [place], [place] [id number]. Tadeo Smyth MCHC (RBC) [Mass/Vol] 32.5 g/dL Normal 29.9-35.2 The [facility] Comment on above: Performed By: #### C BC ####[facility] Hxesuxomhw0301 [place] [id number]. Tadeo Smyth MCV (RBC) [Entitic vol] 89.7 fL Normal 81.0-99.0 The [facility] Comment on above: Performed By: #### C BC ####[facility] Drwkhltmpz[address] [place], [place] [address]Dr. Tadeo Smyth MONO # 0.3 103/ul Normal 0.3-0.8 The [facility] Comment on above: Performed By: #### C BC ####[facility] Eudcjvlouf[address] [place], [place] [address]Dr. Tadeo Smyth Monocytes/100 WBC (Bld) 6.1 % Normal 1.7-12.0 The [facility] Comment on above: Performed By: #### C BC ####[facility] Lbdahvbeud[address] [place] [id number]. Tadeo Smyth NEUT # 3.0 103/ul Normal 1.4-6.5 The [facility] Comment on above: Performed By: #### C BC ####[facility] Preqnquahn0460 [place] [id number]. Tadeo Smyth Neutrophils/100 WBC (Bld) 55.2 % Normal 43.0-75.0 The [facility] Comment on above: Performed By: #### C BC ####[facility] Cwdpmppscl9516 [place] [id number]. Tadeo Smyth Platelet mean volume (Bld) [Entitic vol] 9.0 fL Critically low 9.5-13.5 The [facility] Comment on above: Performed By: #### C BC ####[facility] Wbrvtcffkg3225 [place] [id number]. Tadeo Smyth PLT 358 103/ul Normal 150-450 The [facility] Comment on above: Performed By: #### C BC ####[facility] Xkvlxekrii[address] [place] [id number]. Tadeo Smyth RBC 3.98 106/ul Critically low 4.20-5.40 The [facility] Comment on above: Performed By: #### C BC ####[facility] Gbpncwofoo5934 [place] [id number]. Tadeo Smyth WBC 5.4 103/ul Normal 4.0-11.0 The [facility] Comment on above: Performed By: #### C BC ####[facility] Bvfuswgccb5450 [place] [id number]. Tadeo Smyth LIPASEon 07-21-2022 Lipase [Catalytic activity/Vol] 54.0 U/L Critically low 73.0-393.0 The [facility] Comment on above: Performed By: #### L ISABEL, VIJI, CMP ####[facility] Eqxqwlwkaf69[address] [place] [address]Dr. Margotnicole Smyth PROF 14(COMP METB)on 022 Albumin [Mass/Vol] 3.5 g/dL Normal 3.4-5.0 [facility] Comment on above: Performed By: #### L IPA VIJI, CMP ####[facility] Wrkwcuijtb4349 [place] [address]Dr. Tadeo Smyth Albumin/Globulin [Mass ratio] 0.9 {ratio} Normal [facility] Comment on above: Performed By: #### L IPA VIJI, CMP ####[facility] Avhrymmtvs9874 [place] [address]Dr. Tadeo Smyth ALP [Catalytic activity/Vol] 127 U/L Critically high 46-116 [facility] Comment on above: Performed By: #### L IPA VIJI, CMP ####[facility] Yxuboumenb[address] [place], [place] [address]Dr. Tadeo Smyth ALT [Catalytic activity/Vol] 16 U/L Normal 14-59 [facility] Comment on above: Performed By: #### L IPA VIJI, CMP ####[facility] Tzeuowrvrt[address] [place], [place] [address]Dr. Tadeo Smyth Anion gap [Moles/Vol] 10.6 mmol/L Normal [facility] Comment on above: Performed By: #### L ISABEL VIJI, CMP ####[facility] Gexhggptns[address] [place], [place] [address]Dr. Tadeo Smyth AST [Catalytic activity/Vol] 16 U/L Normal 15-37 [facility] Comment on above: Performed By: #### L ISABEL VIJI, CMP ####[facility] Apeaxqqjob[address] [place], [place] [address]Dr. Tadeo Smyth Bilirubin [Mass/Vol] 0.3 mg/dL Normal 0.2-1.0 [facility] Comment on above: Performed By: #### L IPA VIJI, CMP ####[facility] Srxnykbroy[address] [place], [place] [address]Dr. Tadeo Smyth Calcium [Mass/Vol] 9.1 mg/dL Normal 8.5-10.1 [facility] Comment on above: Performed By: #### L IPA VIJI, CMP ####[facility] Pwmhotikkg[address] [place], [place] [address]Dr. Tadeo Smyth Chloride [Moles/Vol] 104 mmol/L Normal 98-107 The [facility] Comment on above: Performed By: #### L VIJI HALL, CMP ####[facility] Qxutrijaec9152 [place] [address]Dr. Tadeo Smyth CO2 [Moles/Vol] 28.0 mmol/L Normal 21.0-32.0 The [facility] Comment on above: Performed By: #### L VIJI HALL, CMP ####[facility] Txmuauynkq5985 [place] [address]Dr. Tadeo Smyth Creatinine [Mass/Vol] 0.96 mg/dL Normal 0.55-1.02 The [facility] Comment on above: Performed By: #### L VIJI HALL, CMP ####[facility] Itcpoqjvoq14[address] [place] [address]Dr. Tadeo Smyth EGFR-AF LUXEMBOURGER >60 Normal >=60 The [facility] Comment on above: Performed By: #### L VIJI HALL, CMP ####[facility] Ycdbkeyhtf[address] [place], [place] [address]Dr. Tadeo Smyth EGFR-NON AF LUXEMBOURGER >60 Normal >=60 The [facility] Comment on above: Performed By: #### L VIJI HALL, CMP ####[facility] Rlfbbccnaa5293 [place] [address]Dr. Tadeo Smyth Globulin (S) [Mass/Vol] 3.8 g/dL Normal The [facility] Comment on above: Performed By: #### L VIJI HALL, CMP ####[facility] Alcagkcuaz[address] [place] [address]Dr. Tadeo Smyth Glucose [Mass/Vol] 93 mg/dL Normal 74-106 The [facility] Comment on above: Performed By: #### L VIJI HALL, CMP ####[facility] Hjfipwqsqr8513 [place] [address]Dr. Tadeo Smyth Potassium [Moles/Vol] 3.6 mmol/L Normal 3.5-5.1 The [facility] Comment on above: Performed By: #### L VIJI HALL, CMP ####[facility] Ihfiphvyuy[address] [place], [place] [address]Dr. Tadeo Smyth Protein [Mass/Vol] 7.3 g/dL Normal 6.4-8.2 The [facility] Comment on above: Performed By: #### L VIJI HALL, CMP ####[facility] Yzufvrrmbb[address] [place], [place] [address]Dr. Tadeo Smyth Sodium [Moles/Vol] 139 mmol/L Normal 136-145 The [facility] Comment on above: Performed By: #### L VIJI HALL, CMP ####[facility] Snpzpxuizo[address] [place], [place] [address]Dr. Tadeo Smyth Urea nitrogen [Mass/Vol] 16.0 mg/dL Normal 7.0-18.0 The [facility] Comment on above: Performed By: #### L VIJI HALL, CMP ####[facility] Wipaoadtli[address] [place], [place] [address]Dr. Tadeo Smyth Urea nitrogen/Creatinine [Mass ratio] 16.7 mg/mg Normal The [facility] Comment on above: Performed By: #### L VIJI HALL, CMP ####[facility] Teopkngfkf[address] [place], [place] [address]Dr. Tadeo Smyth XR ABD FLAT UP_PA Kasey 07-21 XR ABD FLAT UP_PA CH Normal The [facility] CULTURE URINEon 07-10-2022 CULTURE URINE Normal The [facility] Comment on above: Performed By: #### U RCX ####[facility] Rpcszotmfn[address] [place], [place] [address]Dr. Tadeo Smyth INSULINon 07-09-2022 Insulin 15.9 uIU/mL Normal 2.6-24.9 The [facility] Comment on above: Performed By: #### I NSULIN ####[facility] Ywkuzcweaw[address] [place], [place] [address]Dr. Tadeo Smyth CBC AUTO DIFFon 07-08-2022 BASO # 0.0 103/ul Normal 0.0-0.1 The [facility] Comment on above: Performed By: #### C BC ####[facility] Ztnydpbqpo[address] [place], [place] [address]Dr. Tadeo Smyth Basophils/100 WBC (Bld) 0.6 % Normal 0.2-2.0 The [facility] Comment on above: Performed By: #### C BC ####[facility] Oqnaolmzz[address] [place], [place] [address]Dr. Tadeo Smyth EO # 0.2 103/ul Normal 0.0-0.7 The [facility] Comment on above: Performed By: #### C BC ####[facility] Rfldordncc[address] [place], [place] [address]Dr. Tadeo Smyth Eosinophils/100 WBC (Bld) 3.4 % Normal 0.9-7.0 The [facility] Comment on above: Performed By: #### C BC ####[facility] Fhhmcblttf[address] [place], [place] [address]Dr. Tadeo Smyth Erythrocyte distribution width (RBC) [Ratio] 13.1 % Normal 11.0-15.0 The [facility] Comment on above: Performed By: #### C BC ####[facility] Bngiawyd[address] [place], [place] [address]Dr. Tadeo Smyth Hematocrit (Bld) [Volume fraction] 42.4 % Normal 36.0-48.0 The [facility] Comment on above: Performed By: #### C BC ####[facility] Yplgmehhxr[address] [place], [place] [address]Dr. Tadeo Smyth Hemoglobin (Bld) [Mass/Vol] 13.7 g/dL Normal 12.0-16.0 The [facility] Comment on above: Performed By: #### C BC ####[facility] Beltylmlpl[address] [place], [place] [address]Dr. Tadeo Smyth IG # 0.01 10e3/ul Normal 0.00-0.03 The [facility] Comment on above: Performed By: #### C BC ####[facility] Tjdtpsmron[address] [place], [place] [address]Dr. Tadeo Smyth IG % 0.2 % Normal 0.0-0.5 The [facility] Comment on above: Performed By: #### C BC ####[facility] Bhzrshaxgb[address] [place], [place] [address]Dr. Tadeo Smyth LYMPH # 2.1 103/ul Normal 1.2-3.8 The [facility] Comment on above: Performed By: #### C BC ####[facility] [address] [place] [address]Dr. Margotnicole Smyth Lymphocytes/100 WBC (Bld) 41.2 % Normal 20.5-60.0 The [facility] Comment on above: Performed By: #### C BC ####[facility] [address]fdzxtj[address] [place] [address]Dr. Tadeo Smyth MANUAL DIFF REQ NO Normal The [facility] Comment on above: Performed By: #### C BC ####[facility] Qjdqyiekft[address] [place] [address]Dr. Tadeo Smyth MCH (RBC) [Entitic mass] 28.8 pg Normal 26.7-34.0 The [facility] Comment on above: Performed By: #### C BC ####[facility] Nxrfdwulzw[address] [place] [address]Dr. Margotnicole Smyth MCHC (RBC) [Mass/Vol] 32.3 g/dL Normal 29.9-35.2 The [facility] Comment on above: Performed By: #### C BC ####[facility] [address]ccybstdwp[address] [place] [address]Dr. Tadeo Smyth MCV (RBC) [Entitic vol] 89.3 fL Normal 81.0-99.0 The [facility] Comment on above: Performed By: #### C BC ####[facility] Zd[address]ozocir[address] [place] [address]Dr. Tadeo Smyth MONO # 0.4 103/ul Normal 0.3-0.8 The [facility] Comment on above: Performed By: #### C BC ####[facility] Iir[address]lotdei[address] [place] [address]Dr. Tadeo Smyth Monocytes/100 WBC (Bld) 8.1 % Normal 1.7-12.0 The [facility] Comment on above: Performed By: #### C BC ####[facility] [address]qflkenytv[address] [place] [address]Dr. Tadeo Smyth NEUT # 2.4 103/ul Normal 1.4-6.5 The [facility] Comment on above: Performed By: #### C BC ####[facility] Eyegxkfsoy[address] [place] [id number]. Tadeo Smyth Neutrophils/100 WBC (Bld) 46.5 % Normal 43.0-75.0 The [facility] Comment on above: Performed By: #### C BC ####[facility] Ryeiuqovyl[address] [place] [address]Dr. Tadeo Smyth Platelet mean volume (Bld) [Entitic vol] 9.3 fL Critically low 9.5-13.5 The [facility] Comment on above: Performed By: #### C BC ####[facility] Ifenwmpthw[address] [place] [address]Dr. Tadeo Smyth PLT 443 103/ul Normal 150-450 The [facility] Comment on above: Performed By: #### C BC ####[facility] Jwjkotplml[address] [place] [address]Dr. Tadeo Smyth RBC 4.75 106/ul Normal 4.20-5.40 The [facility] Comment on above: Performed By: #### C BC ####[facility] Bxwlodprhu[address] [place], [place] [address]Dr. Tadeo Smyth WBC 5.1 103/ul Normal 4.0-11.0 The [facility] Comment on above: Performed By: #### C BC ####[facility] Zyezcmediw[address] [place] [id number]. Tadeo Smyth FREE THYROXINE INDEX T7on FTI 2.91 Normal 1.30-4.50 The [facility] Comment on above: Performed By: #### T 7, LIPID, TSH, CMP ####[facility] Lnmevxhifp[address] [place] [address]Dr. Tadeo Smyth T3U 31.0 % Normal 30.0-39.0 The [facility] Comment on above: Performed By: #### T 7, LIPID, TSH, CMP ####[facility] Rmfzzdotyh[address] [place] [address]Dr. Tadeo Smyth T4 [Mass/Vol] 9.40 ug/dL Normal 4.80-13.90 [facility] Comment on above: Performed By: #### T 7, LIPID, TSH, CMP ####[facility] Bdhcymalqn[address] [place] [address]Dr. Tadeo Smyth GLYCOHEMOGLOBIN A1Con 2021 ADA RECOMMENDATION SEE BELOW Normal The [facility] Comment on above: Result Comment: ADA RECOMMENDED LIMIT 4.0 - 6.0 ADA THERAPEUTIC TARGET < 7.0 ACTION SUGGESTED > 7.0 Performed By: #### A 1C ####[facility] Nlsgbbokgn[address] [place], [place] [address]Dr. Tadeo Smyth Glucose [Mass/Vol] 120 mg/dL Normal The [facility] Comment on above: Performed By: #### A 1C ####[facility] Xnuehxhmat[address] [place], [place] [address]Dr. Tadeo Smyth HbA1c (Bld) [Mass fraction] 5.8 % Normal 4.5-6.2 The [facility] Comment on above: Performed By: #### A 1C ####[facility] Uamqcuzafr[address] [place], [place] [address]Dr. Tadeo Smyth IRONon 07-08-2022 Iron [Mass/Vol] 59.0 ug/dL Normal 50.0-170.0 The [facility] Comment on above: Performed By: #### I KEEGAN ####[facility] Hyzrrlhxva[address] [place], [place] [address]Dr. Tadeo Smyth LIPID PROFILEon 07-08-2022 CHOL-HDL RATIO NORM SEE BELOW Normal The [facility] Comment on above: Result Comment: 3.3 - 4.4 LOW RISK 4.4 - 7.1 AVERAGE RISK 7.1 - 11.0 MODERATE RISK >11.0 HIGH RISK Performed By: #### T 7, LIPID, TSH, CMP ####[facility] [address]hrwzmyvy[address] [place] [address]Dr. Tadeo Smyth Cholesterol [Mass/Vol] 227 mg/dL Critically high <=200 The [facility] Comment on above: Performed By: #### T 7, LIPID, TSH, CMP ####[facility] [address]msnfbdwsi[address] [place] [id number]. Tadeo Smyth Cholesterol in HDL [Mass/Vol] 67 mg/dL Critically high 40-60 The [facility] Comment on above: Performed By: #### T 7, LIPID, TSH, CMP ####[facility] Hyszencfcl[address] [place] [id number]. Tadeo Smyth Cholesterol in LDL [Mass/Vol] 139.0 mg/dL Normal The [facility] Comment on above: Performed By: #### T 7, LIPID, TSH, CMP ####[facility] Gkdzjdbuxy[address] [place] [id number]. Tadeo Smyth Cholesterol.total/Cho lesterol in HDL [Mass ratio] 3.4 {ratio} Normal The [facility] Comment on above: Performed By: #### T 7, LIPID, TSH, CMP ####[facility] Kwidkgxprn[address] [place] [address]Dr. Tadeo Smyth HDL NORMAL > or = 60 mg/dl - LO W CARDIOVASCULAR RISK <40 mg/dl - HIGH CARDIOVASCULAR RISK Normal The [facility] Comment on above: Performed By: #### T 7, LIPID, TSH, CMP ####[facility] Tgslxuhibd[address] [place] [address]Dr. Tadeo Smyth LDL CALC NORMAL SEE BELOW Normal [facility] Comment on above: Result Comment: <100 mg/dl OPTIMAL 100 - 129 mg/dl NEAR OR ABOVE OPTIMAL 130 - 159 mg/dl BORDERLINE HIGH 160 - 189 mg/dl HIGH >190 mg/dl VERY HIGH Performed By: #### T 7, LIPID, TSH, CMP ####[facility] Cmcbftsert[address] [place] [id number]. Tadeo Smyth Triglyceride [Mass/Vol] 105 mg/dL Normal <=150 The [facility] Comment on above: Performed By: #### T 7, LIPID, TSH, CMP ####[facility] Igmkrjwwrw[address] [place] [id number]. Tadeo Smyth VLDL CALC 21.0 mg/dL Normal The [facility] Comment on above: Performed By: #### T 7, LIPID, TSH, CMP ####[facility] Johyndojgp12[address] [place] [address]Dr. Tadeo Smyth OCC BLD IMMUNO SCREENon OCCULT BLOOD Negative Normal NEGATIVE [facility] Comment on above: Performed By: #### O BSCRN ####[facility] Mpcmtkycdo40[address] [place] [address]Dr. Tadeo Smyth PROF 14(COMP METB)on 022 Albumin [Mass/Vol] 3.7 g/dL Normal 3.4-5.0 [facility] Comment on above: Performed By: #### T 7, LIPID, TSH, CMP ####[facility] Rtqqzziofg4[address] [place] [address]Dr. Tadeo Smyth Albumin/Globulin [Mass ratio] 0.8 {ratio} Normal [facility] Comment on above: Performed By: #### T 7, LIPID, TSH, CMP ####[facility] Jjhniwehuo[address] [place] [address]Dr. Tadeo Smyth ALP [Catalytic activity/Vol] 141 U/L Critically high 46-116 [facility] Comment on above: Performed By: #### T 7, LIPID, TSH, CMP ####[facility] Gwnticjcbr[address] [place] [address]Dr. Tadeo Smyth ALT [Catalytic activity/Vol] 23 U/L Normal 14-59 [facility] Comment on above: Performed By: #### T 7, LIPID, TSH, CMP ####[facility] Zajirczqcd[address] [place] [address]Dr. Tadeo Smyth Anion gap [Moles/Vol] 9.8 mmol/L Normal The [facility] Comment on above: Performed By: #### T 7, LIPID, TSH, CMP ####[facility] Qmrrywmpiz[address] [place] [address]Dr. Tadeo Smyth AST [Catalytic activity/Vol] 13 U/L Critically low 15-37 [facility] Comment on above: Performed By: #### T 7, LIPID, TSH, CMP ####[facility] Zyimxxvvxd30[address] [place] [address]Dr. Tadeo Smyth Bilirubin [Mass/Vol] 0.4 mg/dL Normal 0.2-1.0 [facility] Comment on above: Performed By: #### T 7, LIPID, TSH, CMP ####[facility] Hksblhycyn[address] [place], [place] [address]Dr. Tadeo Smyth Calcium [Mass/Vol] 10.2 mg/dL Critically high 8.5-10.1 [facility] Comment on above: Performed By: #### T 7, LIPID, TSH, CMP ####[facility] Vebbfetagu[address] [place], [place] [address]Dr. Tadeo Smyth Chloride [Moles/Vol] 101 mmol/L Normal 98-107 The [facility] Comment on above: Performed By: #### T 7, LIPID, TSH, CMP ####[facility] Dxuduvphce[address] [place], [place] [address]Dr. Tadeo Smyth CO2 [Moles/Vol] 32.8 mmol/L Critically high 21.0-32.0 The [facility] Comment on above: Performed By: #### T 7, LIPID, TSH, CMP ####[facility] Bqfruojmsn[address] [place], [place] [address]Dr. Tadeo Smyth Creatinine [Mass/Vol] 0.92 mg/dL Normal 0.55-1.02 [facility] Comment on above: Performed By: #### T 7, LIPID, TSH, CMP ####[facility] Dsdldtymyl[address] [place], [place] [address]Dr. Tadeo Smyth EGFR-AF LUXEMBOURGER >60 Normal >=60 The [facility] Comment on above: Performed By: #### T 7, LIPID, TSH, CMP ####[facility] Aqfnlrchrl[address] [place], [place] [address]Dr. Tadeo Smyth EGFR-NON AF LUXEMBOURGER >60 Normal >=60 The [facility] Comment on above: Performed By: #### T 7, LIPID, TSH, CMP ####[facility] Qlfesivzut[address] [place], [place] [address]Dr. Tadeo Smyth Globulin (S) [Mass/Vol] 4.8 g/dL Normal The [facility] Comment on above: Performed By: #### T 7, LIPID, TSH, CMP ####[facility] Zspbfscurt[address] [place] [address]Dr. Tadeo Smyth Glucose [Mass/Vol] 114 mg/dL Critically high 74-106 [facility] Comment on above: Performed By: #### T 7, LIPID, TSH, CMP ####[facility] Gdfrpfwbgf64[address] [place] [address]Dr. Tadeo Smyth Potassium [Moles/Vol] 3.6 mmol/L Normal 3.5-5.1 [facility] Comment on above: Performed By: #### T 7, LIPID, TSH, CMP ####[facility] Sayutolptj65[address] [place] [address]Dr. Tadeo Smyth Protein [Mass/Vol] 8.5 g/dL Critically high 6.4-8.2 [facility] Comment on above: Performed By: #### T 7, LIPID, TSH, CMP ####[facility] Savgegdwvs[address] [place], [place] [address]Dr. Tadeo Smyth Sodium [Moles/Vol] 140 mmol/L Normal 136-145 [facility] Comment on above: Performed By: #### T 7, LIPID, TSH, CMP ####[facility] Jmszodmrex[address] [place] [address]Dr. Tadeo Smyth Urea nitrogen [Mass/Vol] 23.0 mg/dL Critically high 7.0-18.0 [facility] Comment on above: Performed By: #### T 7, LIPID, TSH, CMP ####[facility] [address]kmxegipf[address] [place], [place] [address]Dr. Tadeo Smyth Urea nitrogen/Creatinine [Mass ratio] 25.0 mg/mg Normal [facility] Comment on above: Performed By: #### T 7, LIPID, TSH, CMP ####[facility] Occcmstkuf[address] [place] [address]Dr. Tadeo Smyth TSHon 07-08-2022 TSH 3.748 uIU/mL Critically high 0.358-3.740 [facility] Comment on above: Performed By: #### T 7, LIPID, TSH, CMP ####[facility] Vjptflqjzz25[address] [place] [address]Dr. Tadeo Smyth UA RANDOM W/MICROSCOPICon BACTERIA TRACE Abnormal NONE SEEN The [facility] Comment on above: Performed By: #### U AMIC ####[facility] Fgychlypuo[address] [place] [address]Dr. Tadeo Smyth Bilirubin Ql (U) Negative Normal NEGATIVE The [facility] Comment on above: Performed By: #### U AMIC ####[facility] Grduvtpxix[address] [place] [address]Dr. Tadeo Smyth CAST NONE SEEN Normal NONE SEEN The [facility] Comment on above: Performed By: #### U AMIC ####[facility] Rxhwywcdbl[address] [place], [place] [address]Dr. Tadeo Smyth Clarity (U) CLEAR Normal CLEAR The [facility] Comment on above: Performed By: #### U AMIC ####[facility] Gdncmslrro[address] [place], [place] [address]Dr. Tadeo Smyth Color (U) YELLOW Normal YELLOW The [facility] Comment on above: Performed By: #### U AMIC ####[facility] Brusobwjsy[address] [place], [place] [address]Dr. Tadeo Smyth Crystals LM Nom (Urine sed) NONE SEEN Normal NONE SEEN The [facility] Comment on above: Performed By: #### U AMIC ####[facility] Hzpuhzotqp[address] [place], [place] [address]Dr. Tadeo Smyth Epithelial cells LM Ql (Urine sed) FEW Abnormal NONE SEEN /RARE The [facility] Comment on above: Performed By: #### U AMIC ####[facility] Zdvxcqpbxo[address] [place], [place] [address]Dr. Tadeo Smyth Glucose Ql (U) Negative Normal NEGATIVE The [facility] Comment on above: Performed By: #### U AMIC ####[facility] Morepszlks[address] [place], [place] [address]Dr. Tadeo Smyth Hemoglobin Ql (U) SMALL Abnormal NEGATIVE The [facility] Comment on above: Performed By: #### U AMIC ####[facility] Rtkfscfxhf9015 [place] [address]Dr. Tadeo Smyth Ketones Ql (U) TRACE Abnormal NEGATIVE The [facility] Comment on above: Performed By: #### U AMIC ####[facility] Xlmcdqupcq[address] [place], [place] [address]Dr. Tadeo Smyth LEUKOCYTES TRACE Abnormal NEGATIVE The [facility] Comment on above: Performed By: #### U AMIC ####[facility] Neefdpqojb16[address] [place] [address]Dr. Tadeo Smyth MUCOUS NONE SEEN Normal NONE SEEN The [facility] Comment on above: Performed By: #### U AMIC ####[facility] Ahkbugvcbm[address] [place], [place] [address]Dr. Tadeo Smyth Nitrite Ql (U) Negative Normal NEGATIVE The [facility] Comment on above: Performed By: #### U AMIC ####[facility] Kdzrjvlsmb4587 [place] [address]Dr. Tadeo Smyth pH (U) 6.5 [pH] Normal 5-9 The [facility] Comment on above: Performed By: #### U AMIC ####[facility] Mpbbfgvyaq[address] [place], [place] [address]Dr. Tadeo Smyth RBC 5-10 Abnormal 0-2 The [facility] Comment on above: Performed By: #### U AMIC ####[facility] Gjhioecnnv[address] [place] [address]Dr. Tadeo Smyth SPEC GRAVITY 1.020 Normal 1.005-<=1.0 25 The [facility] Comment on above: Performed By: #### U AMIC ####[facility] Cqphihixjv[address] [place], [place] [address]Dr. Tadeo Smyth UA PROTEIN 30 mg/dl Abnormal NEGATIVE/ TRACE The [facility] Comment on above: Performed By: #### U AMIC ####[facility] Mzsuwuqsdt[address] [place], [place] [address]Dr. Tadeo Smyth Urobilinogen Qn (U) 0.2 {Benito'U}/dL Normal 0.2 - 1. 0 The [facility] Comment on above: Performed By: #### U AMIC ####[facility] Zymgofsigf3[address] [place] [id number]. Tadeo Smyth WBC 2-5 Abnormal NONE SEEN The [facility] Comment on above: Performed By: #### U AMIC ####[facility] Umanmufjbq[address] [place], [place] [id number]. Tadeo Smyth Covid-19 PCR (CVDTBH)on 06-07 SARS-CoV-2 (COVID-19) RNA CHEN+probe Ql (Unsp spec) Not detected Normal NOT DETECTED The [facility] Comment on above: Result Comment: When diagnostic [...] for this test is supported by the [place] of [employer] and Human Service's declaration that [...] be used). Performed By: #### C VDTBH ####[facility] Gvrpllumpq[address] [place], [place] [address]Dr. Tadeo Smyth CULTURE URINEon 06-09-2022 CULTURE URINE Normal The [facility] Comment on above: Performed By: #### U RCX ####[facility] Woefezlvlc34[address] [place] [id number]. Tadeo Smyth GI PANEL (PCR)on 06-07-2022 Adenovirus F 40/41 Not detected Normal NOT DETECTED The [facility] Comment on above: Performed By: #### G IPANEL ####[facility] Oiq[address]jgpxls[address] [place], [place] [address]Dr. Tadeo Smyth Astrovirus Not detected Normal NOT DETECTED The [facility] Comment on above: Performed By: #### G IPANEL ####[facility] Zhdblemvjm[address] [place], [place] [address]Dr. Tadeo Smyth C. Diff toxin A/B Not detected Normal NOT DETECTED The [facility] Comment on above: Performed By: #### G IPANEL ####[facility] Ydidlnkwzd[address] [place], [place] [address]Dr. Tadeo Smyth Campylobacter Not detected Normal NOT DETECTED The [facility] Comment on above: Performed By: #### G IPANEL ####[facility] Bfvuvskeeo[address] [place], [place] [address]Dr. Tadeo Smyth Cryptosporidium Not detected Normal NOT DETECTED The [facility] Comment on above: Performed By: #### G IPANEL ####[facility] Htpkdmkxoz[address] [place], [place] [address]Dr. Tadeo Smyth Cyclos. Cayetanensis Not detected Normal NOT DETECTED The [facility] Comment on above: Performed By: #### G IPANEL ####[facility] Zpcsvzvxfw[address] [place], [place] [address]Dr. Tadeo Smyth E. Coli O157 Not Applicable Normal Not Applicable The [facility] Comment on above: Performed By: #### G IPANEL ####[facility] Igzsecqmfl[address] [place], [place] [address]Dr. Tadeo Smyth E. histolytica Not detected Normal NOT DETECTED The [facility] Comment on above: Performed By: #### G IPANEL ####[facility] Bdtthjlzku[address] [place], [place] [address]Dr. Tadeo Smyth EAEC Not detected Normal NOT DETECTED The [facility] Comment on above: Performed By: #### G IPANEL ####[facility] Lmrcgxggba[address] [place], [place] [address]Dr. Tadeo Smyth EIEC Not detected Normal NOT DETECTED The [facility] Comment on above: Performed By: #### G IPANEL ####[facility] Isyriyjwup[address] [place], [place] [address]Dr. Tadeo Smyth EPEC Not detected Normal NOT DETECTED The [facility] Comment on above: Performed By: #### G IPANEL ####[facility] Oahasmtsql9[address] [place] [address]Dr. Tadeo Smyth ETEC Not detected Normal NOT DETECTED The [facility] Comment on above: Performed By: #### G IPANEL ####[facility] Ukkys[address]ias[address] [place], [place] [id number]. Tadeo Smyth G. Lamblia Not detected Normal NOT DETECTED The [facility] Comment on above: Performed By: #### G IPANEL ####[facility] Rkifbtwbuy9680 [place] [address]Dr. Tadeo MEZAANEL CONTROLS PASSED Normal The [facility] Comment on above: Performed By: #### G IPANEL ####[facility] Jymoepcovz[address] [place], [place] [address]Dr. Tadeo CACERES ARRON HEADER GI PANEL BACTERIA Normal T [facility] Comment on above: Performed By: #### G IPANEL ####[facility] [address] [place], [place] [address]Dr. Tadeo CACERESHD ECOLI GI PANEL DIARRHEAGEN IC E.COLI / SHIGELLA Normal The [facility] Comment on above: Performed By: #### G IPANEL ####[facility] Igystcccgr[address] [place], [place] [address]Dr. Tadeo BANEGAS INFO SEE BELOW Normal The [facility] Comment on above: Result Comment: EAEC - Enteroaggregative E. Coli EPEC- Enteropathogenic E. Coli ETEC- Enterotoxigenic E. Coli lt/st STEC- Shigella-like toxin-producing E. Coli stx1/stx2 EIEC- Shigella/Enteroinvasive E. Coli Performed By: #### G IPANEL ####[facility] Xovvomawcb[address] [place], [place] [id number]. Tadeo MEZANLHD PARASITES GI PANEL PARASITES Normal The [facility] Comment on above: Performed By: #### G IPANEL ####[facility] Dygfufnhvs7860[address] [place], [place] [address]Dr. Tadeo CACERESHD VIRUS GI PANEL VIRUSES Normal The [facility] Comment on above: Performed By: #### G IPANEL ####[facility] Wjegkutyzf[address] [place], [place] [address]Dr. Tadeo Smyth Norovirus GI/GII Not detected Normal NOT DETECTED The [facility] Comment on above: Performed By: #### G IPANEL ####[facility] Nvddxpmnej4832[address] [place], [place] [address]Dr. Tadeo Smyth P. Shigelloides Not detected Normal NOT DETECTED The [facility] Comment on above: Performed By: #### G IPANEL ####[facility] Sdiuiqdryt12[address] [place], [place] [address]Dr. Tadeo Smyth Rotavirus A Not detected Normal NOT DETECTED The [facility] Comment on above: Performed By: #### G IPANEL ####[facility] Izjfzwjbdq547[address] [place], [place] [address]Dr. Margotnicole Smyth Salmonella Not detected Normal NOT DETECTED The [facility] Comment on above: Performed By: #### G IPANEL ####[facility] Rasxplndax270[address] [place], [place] [address]Dr. Tadeo Smyth Sapovirus Not detected Normal NOT DETECTED The [facility] Comment on above: Performed By: #### G IPANEL ####[facility] Jjxhwhqydc[address] [place], [place] [address]Dr. Tadeo Smyth STEC Not detected Normal NOT DETECTED The [facility] Comment on above: Performed By: #### G IPANEL ####[facility] Lwcpysyzly175[address] [place], [place] [address]Dr. Tadeo Smyth Vibrio Not detected Normal NOT DETECTED The [facility] Comment on above: Performed By: #### G IPANEL ####[facility] Ccfhgyarre[address] [place], [place] [address]Dr. Tadeo Smyth Vibrio Cholera Not detected Normal NOT DETECTED The [facility] Comment on above: Performed By: #### G IPANEL ####[facility] Xyvwnwkaff2529[address] [place], [place] [address]Dr. Tadeo Smyth Y. Enterocolitica Not detected Normal NOT DETECTED The [facility] Comment on above: Performed By: #### G IPANEL ####[facility] Zqnwtltuon337[address] [place], [place] [address]Dr. Tadeo Smyth AMYLASEon 06-06-2022 Amylase [Catalytic activity/Vol] 61 U/L Normal 25-115 The [facility] Comment on above: Performed By: #### A TANYA LIPA ####[facility] [address]mpx[address] [place] [address]Dr. Tadeo Haja CBC AUTO DIFFon 06-06-2022 BASO # 0.0 103/ul Normal 0.0-0.1 The [facility] Comment on above: Performed By: #### C BC ####[facility] Jguqcyephp2533[address] [place], [place] [address]Dr. Tadeo Smyth Basophils/100 WBC (Bld) 0.5 % Normal 0.2-2.0 The [facility] Comment on above: Performed By: #### C BC ####[facility] Ohffpeamym[address]28[address] [place], [place] [address]Dr. Tadeo Smyth EO # 0.2 103/ul Normal 0.0-0.7 The [facility] Comment on above: Performed By: #### C BC ####[facility] Hnlfnzrpnp8950[address] [place], [place] [address]Dr. Tadeo Smyth Eosinophils/100 WBC (Bld) 3.4 % Normal 0.9-7.0 The [facility] Comment on above: Performed By: #### C BC ####[facility] Eqwatoecod803[address] [place], [place] [address]Dr. Margotnicole Haja Erythrocyte distribution width (RBC) [Ratio] 13.2 % Normal 11.0-15.0 The [facility] Comment on above: Performed By: #### C BC ####[facility] Myeelekyiz[address] [place], [place] [address]Dr. Tadeo Smyth Hematocrit (Bld) [Volume fraction] 38.3 % Normal 36.0-48.0 The [facility] Comment on above: Performed By: #### C BC ####[facility] Lttvytxmqv8999[address] [place], [place] [address]Dr. Tadeo Smyth Hemoglobin (Bld) [Mass/Vol] 12.0 g/dL Normal 12.0-16.0 The [facility] Comment on above: Performed By: #### C BC ####[facility] Cvsahfoihi[address] [place], [place] [id number]. Tadeo Smyth IG # 0.01 10e3/ul Normal 0.00-0.03 [facility] Comment on above: Performed By: #### C BC ####[facility] Bqczugdmvc[address] [place] [address]Dr. Tadeo Smyth IG % 0.2 % Normal 0.0-0.5 [facility] Comment on above: Performed By: #### C BC ####[facility] Mwcllcjcqh[address] [place] [address]DrNeo Smyth LYMPH # 1.7 103/ul Normal 1.2-3.8 The [facility] Comment on above: Performed By: #### C BC ####[facility] Ffdcnfejjx1455[address] [place], [place] [address]DrNeo Smyth Lymphocytes/100 WBC (Bld) 28.1 % Normal 20.5-60.0 The [facility] Comment on above: Performed By: #### C BC ####[facility] Hnzqigtzag0532[address] [place], [place] [address]DrNeo Smyth MANUAL DIFF REQ NO Normal [facility] Comment on above: Performed By: #### C BC ####[facility] Aytvhuxuyh325[address] [place], [place] [address]DrNeo Smyth MCH (RBC) [Entitic mass] 28.5 pg Normal 26.7-34.0 [facility] Comment on above: Performed By: #### C BC ####[facility] Gvjwygzajl[address] [place], [place] [address]DrNeo Smyth MCHC (RBC) [Mass/Vol] 31.3 g/dL Normal 29.9-35.2 The [facility] Comment on above: Performed By: #### C BC ####[facility] Uhxfmarmkz[address] [place], [place] [address]DrNeo Smyth MCV (RBC) [Entitic vol] 91.0 fL Normal 81.0-99.0 The [facility] Comment on above: Performed By: #### C BC ####[facility] Ldutbktyrw[address] [place], [place] [address]DrNeo Smyth MONO # 0.4 103/ul Normal 0.3-0.8 The [facility] Comment on above: Performed By: #### C BC ####[facility] Liuifhcyoh9[address] [place] [id number]. Tadeo Smyth Monocytes/100 WBC (Bld) 7.1 % Normal 1.7-12.0 The [facility] Comment on above: Performed By: #### C BC ####[facility] Prvhxmcecv[address] [place] [id number]. Tadeo Smyth NEUT # 3.6 103/ul Normal 1.4-6.5 The [facility] Comment on above: Performed By: #### C BC ####[facility] Ebnnlobryw[address] [place] [address]Dr. Tadeo Smyth Neutrophils/100 WBC (Bld) 60.7 % Normal 43.0-75.0 The [facility] Comment on above: Performed By: #### C BC ####[facility] Tmlqxoadhe2912[address] [place], [place] [address]Dr. Tadeo Smyth Platelet mean volume (Bld) [Entitic vol] 8.9 fL Critically low 9.5-13.5 The [facility] Comment on above: Performed By: #### C BC ####[facility] [address]emiqr[address] [place] [address]Dr. Tadeo Smyth PLT 374 103/ul Normal 150-450 The [facility] Comment on above: Performed By: #### C BC ####[facility] Dcdhsjzcsi2[address] [place] [id number]. Tadeo Smyth RBC 4.21 106/ul Normal 4.20-5.40 The [facility] Comment on above: Performed By: #### C BC ####[facility] Cxzuuxvgaf6[address] [place] [id number]. Tadeo Smyth WBC 5.9 103/ul Normal 4.0-11.0 The [facility] Comment on above: Performed By: #### C BC ####[facility] Orqbfondvo[address] [place] [id number]. Tadeo Smyth CT ABD/PELV W CONon 06-06-[address] ABD/PELV W CON Normal The [facility] ER URINE PROFILEon 2 Bilirubin Ql (U) Negative Normal NEGATIVE The [facility] Comment on above: Performed By: #### KAROL MERCHANT ####[facility] Glxtkwafdl[address] [place] [address]Dr. Tadeo Smyth Clarity (U) CLOUDY Abnormal CLEAR The [facility] Comment on above: Performed By: #### KAROL MERCHANT ####[facility] Hyyjbbqlgt[address] [place], [place] [address]Dr. Tadeo Smyth Color (U) LT. YELLOW Normal YELLOW The [facility] Comment on above: Performed By: #### KAROL MERCHANT ####[facility] Peftebvwvm24[address] [place], [place] [address]Dr. Tadeo Smyth ERUAHD A micrscopic examina tion will be performed if indicated. Normal The [facility] Comment on above: Performed By: #### KAROL MERCHANT ####[facility] Wcqifqbbmr[address] [place], [place] [address]Dr. Tadeo Smyth Glucose Ql (U) Negative Normal NEGATIVE The [facility] Comment on above: Performed By: #### KAROL MERCHANT ####[facility] Lagkadmzez4416[address] [place], [place] [address]Dr. Tadeo Smyth Hemoglobin Ql (U) TRACE-INTACT Abnormal NEGATIVE The [facility] Comment on above: Performed By: #### KAROL MERCHANT ####[facility] Jfkscdqots[address] [place], [place] [address]Dr. Tadeo Smyth Ketones Ql (U) Negative Normal NEGATIVE The [facility] Comment on above: Performed By: #### KAROL MERCHANT ####[facility] Rrpstookmd01[address] [place], [place] [address]Dr. Tadeo Smyth LEUKOCYTES SMALL Abnormal NEGATIVE The [facility] Comment on above: Performed By: #### KAROL MERCHANT ####[facility] Nvgpsrkjna4349[address] [place], [place] [address]Dr. Tadeo Smyth Nitrite Ql (U) Negative Normal NEGATIVE [facility] Comment on above: Performed By: #### RANDI MERCHANTICRO ####[facility] Pmcdyjlseo[address] [place] [address]Dr. Tadeo Smyth pH (U) 6.0 [pH] Normal 5-9 [facility] Comment on above: Performed By: #### RANDI MERCHANTICRO ####[facility] Uwevhtojnw[address] [place] [address]Dr. Tadeo Smyth SPEC GRAVITY 1.020 Normal 1.005-<=1.0 25 [facility] Comment on above: Performed By: #### Matthew FRANCISCO ICRO ####[facility] Mhrwapijct[address] [place] [address]Dr. Tadeo Smyth UA PROTEIN Negative Normal NEGATIVE/ TRACE [facility] Comment on above: Performed By: #### SANDRO MERCHANTRO ####[facility] Bgilnfdrer[address] [place], [place] [address]Dr. Tadeo Smyth UR MICRO IND INDICATED Normal [facility] Comment on above: Performed By: #### Matthew FRANCISCO CHINEDURO ####[facility] Hxumlwddix[address] [place] [address]Dr. Tadeo Smyth Urobilinogen Qn (U) 0.2 {Benito'U}/dL Normal 0.2 - 1. 0 [facility] Comment on above: Performed By: #### SANDRO MERCHANTRO ####[facility] [address]gtsrhh[address] [place] [address]Dr. Tadeo Smyth LIPASEon 06-06-2022 Lipase [Catalytic activity/Vol] 100.0 U/L Normal 73.0-393.0 [facility] Comment on above: Performed By: #### A MY, LIPA ####[facility] Chrqrxdwkm024[address] [place], [place] [address]Dr. Tadeo Smyth PROF 14(COMP METB)on 022 Albumin [Mass/Vol] 3.3 g/dL Critically low 3.4-5.0 Th [facility] Comment on above: Performed By: #### C MP ####[facility] Foygmoenxs[address] [place] [address]Dr. Tadeo Haja Albumin/Globulin [Mass ratio] 0.9 {ratio} Normal [facility] Comment on above: Performed By: #### C MP ####[facility] Olmpppazfd[address] [place] [address]Dr. Tadeo Smyth ALP [Catalytic activity/Vol] 140 U/L Critically high 46-116 The [facility] Comment on above: Performed By: #### C MP ####[facility] Jigvfuiqzf[address] [place], [place] [address]Dr. Tadeo Smyth ALT [Catalytic activity/Vol] 23 U/L Normal 14-59 [facility] Comment on above: Performed By: #### C MP ####[facility] Igovprmyul0130[address] [place], [place] [address]Dr. Tadeo Smyth Anion gap [Moles/Vol] 11.6 mmol/L Normal [facility] Comment on above: Performed By: #### C MP ####[facility] Zmjjkfcysv5189[address] [place], [place] [address]Dr. Margotnicole Smyth AST [Catalytic activity/Vol] 18 U/L Normal 15-37 [facility] Comment on above: Performed By: #### C MP ####[facility] Dizurnbkxe847[address] [place], [place] [address]Dr. Tadeo Smyth Bilirubin [Mass/Vol] 0.2 mg/dL Normal 0.2-1.0 The [facility] Comment on above: Performed By: #### C MP ####[facility] Rvxxdhblao775[address] [place], [place] [address]Dr. Tadeo Smyth Calcium [Mass/Vol] 8.8 mg/dL Normal 8.5-10.1 The [facility] Comment on above: Performed By: #### C MP ####[facility] Njyxyajkja834[address] [place], [place] [address]Dr. Tadeo Smyth Chloride [Moles/Vol] 109 mmol/L Critically high 98-107 The [facility] Comment on above: Performed By: #### C MP ####[facility] Rlnxmfjcua2668[address] [place], [place] [address]Dr. Tadeo Smyth CO2 [Moles/Vol] 26.3 mmol/L Normal 21.0-32.0 The [facility] Comment on above: Performed By: #### C MP ####[facility] Ioreroahwl[address] [place] [address]Dr. Tadeo Haja Creatinine [Mass/Vol] 0.81 mg/dL Normal 0.55-1.02 The [facility] Comment on above: Performed By: #### C MP ####[facility] Viazodyqrm[address] [place] [address]Dr. Tadeo Haja EGFR-AF LUXEMBOURGER >60 Normal >=60 The [facility] Comment on above: Performed By: #### C MP ####[facility] Paslgrirvg[address] [place], [place] [address]Dr. Margotnicole Haja EGFR-NON AF LUXEMBOURGER >60 Normal >=60 The [facility] Comment on above: Performed By: #### C MP ####[facility] Gzrdvpojhq067[address] [place], [place] [address]Dr. Margotnicole Smyth Globulin (S) [Mass/Vol] 3.7 g/dL Normal The [facility] Comment on above: Performed By: #### C MP ####[facility] Quweyfmefe159[address] [place], [place] [address]Dr. Margotnicole Haja Glucose [Mass/Vol] 90 mg/dL Normal 74-106 The [facility] Comment on above: Performed By: #### C MP ####[facility] Kevlvjfhzf[address] [place], [place] [address]Dr. Tadeo Smyth Potassium [Moles/Vol] 3.9 mmol/L Normal 3.5-5.1 The [facility] Comment on above: Performed By: #### C MP ####[facility] Fxhsvoxesi[address]25[address] [place], [place] [address]Dr. Tadeo Smyth Protein [Mass/Vol] 7.0 g/dL Normal 6.4-8.2 The [facility] Comment on above: Performed By: #### C MP ####[facility] Ojvguqaflz[address] [place], [place] [address]Dr. Tadeo Smyth Sodium [Moles/Vol] 143 mmol/L Normal 136-145 The [facility] Comment on above: Performed By: #### C MP ####[facility] Pejwalgmwz488[address] [place], [place] [address]Dr. Tadeo Smyth Urea nitrogen [Mass/Vol] 12.0 mg/dL Normal 7.0-18.0 [facility] Comment on above: Performed By: #### C MP ####[facility] Nmngvacjiv[address]14[address] [place], [place] [address]Dr. Tadeo Smyth Urea nitrogen/Creatinine [Mass ratio] 14.8 mg/mg Normal The [facility] Comment on above: Performed By: #### C MP ####[facility] Qoetzmswvm[address]45[address] [place], [place] [address]Dr. Tadeo Smyth URINE MICROSCOPIC ONLYon BACTERIA LARGE Abnormal NONE SEEN [facility] Comment on above: Performed By: #### Matthew FRANCISCO UMICRO ####[facility] Ldiyxlatfv8379[address] [place], [place] [address]Dr. Tadeo Smyth Bacteria identified Cx Nom (U) INDICATED Normal The [facility] Comment on above: Performed By: #### Matthew FRANCISCO UMICRO ####[facility] Lpmocrkudy[address] [place], [place] [address]Dr. Tadeo Smyth CAST NONE SEEN Normal NONE SEEN The [facility] Comment on above: Performed By: #### Matthew FRANCISCO UMICRO ####[facility] Wcnejdzmtq726[address] [place], [place] [address]Dr. Tadeo Smyth Crystals LM Nom (Urine sed) NONE SEEN Normal NONE SEEN The [facility] Comment on above: Performed By: #### Matthew FRANCISCO UMICRO ####[facility] Xpwwgskudz084[address] [place], [place] [address]Dr. Tadeo Smyth Epithelial cells LM Ql (Urine sed) RARE Normal NONE SEEN /RARE The [facility] Comment on above: Performed By: #### Matthew FRANCISCO UMICRO ####[facility] Xvbrtgpoai165[address] [place], [place] [address]Dr. Tadeo Smyth MUCOUS TRACE Abnormal NONE SEEN The [facility] Comment on above: Performed By: #### KAROL MERCHANT ####[facility] Yxxvjcovqf[address] [place] [id number]. Tadeo Smyth RBC 0-2 Normal 0-2 The [facility] Comment on above: Performed By: #### KAROL MERCHANT ####[facility] Uhnqdswetl9[address] [place] [id number]. Tadeo Smyth WBC 2-5 Abnormal NONE SEEN The [facility] Comment on above: Performed By: #### KAROL MERCHANT ####[facility] Acvdcistbl2816 [place] [id number]. Tadeo Smyth AMYLASEon 06-04-2022 Amylase [Catalytic activity/Vol] 61 U/L Normal 25-115 The [facility] Comment on above: Performed By: #### A MY, CMP, LIPA ####[facility] Tkbuzlsnzi[address] [place], [place] [address]Dr. Tadeo Smyth CBC AUTO DIFFon 06-04-2022 BASO # 0.0 103/ul Normal 0.0-0.1 [facility] Comment on above: Performed By: #### C BC ####[facility] Gdszzxkvde027[address] [place], [place] [address]Dr. Tadeo Smyth Basophils/100 WBC (Bld) 0.5 % Normal 0.2-2.0 [facility] Comment on above: Performed By: #### C BC ####[facility] Refbhjsaqy028[address] [place], [place] [address]Dr. Tadeo Smyth EO # 0.3 103/ul Normal 0.0-0.7 The [facility] Comment on above: Performed By: #### C BC ####[facility] Rglxzhmysu0770[address] [place], [place] [address]Dr. Tadeo Smyth Eosinophils/100 WBC (Bld) 4.7 % Normal 0.9-7.0 The [facility] Comment on above: Performed By: #### C BC ####[facility] Grkayesxlm529[address] [place], [place] [address]Dr. Tadeo Smyth Erythrocyte distribution width (RBC) [Ratio] 13.2 % Normal 11.0-15.0 The [facility] Comment on above: Performed By: #### C BC ####[facility] Fvavcchnew[address] [place] [address]Dr. Tadeo Smyth Hematocrit (Bld) [Volume fraction] 36.9 % Normal 36.0-48.0 [facility] Comment on above: Performed By: #### C BC ####[facility] Ezeqrwewdt23[address] [place], [place] [address]Dr. Tadeo Smyth Hemoglobin (Bld) [Mass/Vol] 11.9 g/dL Critically low 12.0-16.0 [facility] Comment on above: Performed By: #### C BC ####[facility] Eqeaiqlbrm8820[address] [place], [place] [address]Dr. Margotnicole Smyth IG # 0.01 10e3/ul Normal 0.00-0.03 [facility] Comment on above: Performed By: #### C BC ####[facility] Ajxvhwqiwi9699[address] [place], [place] [address]Dr. Margotnicole Smyth IG % 0.2 % Normal 0.0-0.5 [facility] Comment on above: Performed By: #### C BC ####[facility] Pfhrubycvs[address] [place], [place] [address]Dr. Tadeo Haja LYMPH # 2.3 103/ul Normal 1.2-3.8 [facility] Comment on above: Performed By: #### C BC ####[facility] Lboptrntvm517[address] [place], [place] [address]DrNeo Margotnicole Smyth Lymphocytes/100 WBC (Bld) 37.3 % Normal 20.5-60.0 The [facility] Comment on above: Performed By: #### C BC ####[facility] Qeidcediud769[address] [place], [place] [address]Dr. Margotnicole Smyth MANUAL DIFF REQ NO Normal The [facility] Comment on above: Performed By: #### C BC ####[facility] Bppppujkfk075[address] [place], [place] [address]DrNeo Smyth MCH (RBC) [Entitic mass] 29.0 pg Normal 26.7-34.0 The [facility] Comment on above: Performed By: #### C BC ####[facility] Tegiflhtpd[address] [place] [id number]. Tadeo Haja MCHC (RBC) [Mass/Vol] 32.2 g/dL Normal 29.9-35.2 The [facility] Comment on above: Performed By: #### C BC ####[facility] Rdkrgrkqiy15[address] [place] [id number]. Tadeo Smyth MCV (RBC) [Entitic vol] 90.0 fL Normal 81.0-99.0 The [facility] Comment on above: Performed By: #### C BC ####[facility] Ondgdljcfq338[address] [place], [place] [address]Dr. Tadeo Smyth MONO # 0.4 103/ul Normal 0.3-0.8 The [facility] Comment on above: Performed By: #### C BC ####[facility] Ofsmprkezz416[address] [place], [place] [address]Dr. Tadeo Smyth Monocytes/100 WBC (Bld) 6.8 % Normal 1.7-12.0 The [facility] Comment on above: Performed By: #### C BC ####[facility] Lscqfwloih386[address] [place], [place] [address]Dr. Tadeo Smyth NEUT # 3.2 103/ul Normal 1.4-6.5 The [facility] Comment on above: Performed By: #### C BC ####[facility] Kriamtochq[address] [place], [place] [address]Dr. Tadeo Smyth Neutrophils/100 WBC (Bld) 50.5 % Normal 43.0-75.0 The [facility] Comment on above: Performed By: #### C BC ####[facility] Hhoudrkcdu[address] [place], [place] [address]Dr. Tadeo Smyth Platelet mean volume (Bld) [Entitic vol] 8.9 fL Critically low 9.5-13.5 The [facility] Comment on above: Performed By: #### C BC ####[facility] Pjsxftgfxn[address] [place], [place] [address]Dr. Tadeo Smyth PLT 387 103/ul Normal 150-450 The [facility] Comment on above: Performed By: #### C BC ####The [facility] [address] [place] [address]Dr. Tadeo Smyth RBC 4.10 106/ul Critically low 4.20-5.40 The [facility] Comment on above: Performed By: #### C BC ####[facility] Adbgrbrf[address] [place] [address]Dr. Tadeo Smyth WBC 6.2 103/ul Normal 4.0-11.0 [facility] Comment on above: Performed By: #### C BC ####[facility] Podgnbhzxy[address] [place], [place] [address]Dr. Tadeo Smyth CT ABD/PELV W CONon 06-04-[address] ABD/PELV W CON Normal The [facility] ER URINE PROFILEon 2 Bilirubin Ql (U) Negative Normal NEGATIVE The [facility] Comment on above: Performed By: #### SANDRO MERCHANTRO ####[facility] Kxvbshbmub[address] [place], [place] [address]Dr. Tadeo Smyth Clarity (U) CLEAR Normal CLEAR The [facility] Comment on above: Performed By: #### SANDRO MERCHANTRO ####[facility] Hgfhvluyhc[address] [place], [place] [address]Dr. Tadeo Smyth Color (U) LT. YELLOW Normal YELLOW The [facility] Comment on above: Performed By: #### RANDI MERCHANTICRO ####[facility] Rcuweflrdz[address] [place], [place] [address]Dr. Tadeo Smyth ERUAHD A micrscopic examina tion will be performed if indicated. Normal The [facility] Comment on above: Performed By: #### Matthew FRANCISCO UMICRO ####[facility] Afejipqfct[address] [place], [place] [address]Dr. Tadeo Smyth Glucose Ql (U) Negative Normal NEGATIVE The [facility] Comment on above: Performed By: #### Matthew FRANCISCO UMICRO ####[facility] Jhwnjmhlmc[address] [place], [place] [address]Dr. Tadeo Smyth Hemoglobin Ql (U) TRACE-INTACT Abnormal NEGATIVE The [facility] Comment on above: Performed By: #### SANDRO MERCHANTRO ####[facility] [address]xh[address] [place] [address]Dr. Tadeo Smyth Ketones Ql (U) Negative Normal NEGATIVE The [facility] Comment on above: Performed By: #### SANDRO MERCHANTRO ####[facility] Harkwohfqj[address] [place] [address]Dr. Margotnicole Haja LEUKOCYTES Negative Normal NEGATIVE The [facility] Comment on above: Performed By: #### SANDRO MERCHANTRO ####[facility] Hcomncphwb[address] [place], [place] [address]Dr. Tadeo Symth Nitrite Ql (U) Negative Normal NEGATIVE The [facility] Comment on above: Performed By: #### SANDRO MERCHANTRO ####[facility] Cggxgdnbff[address] [place], [place] [address]Dr. Tadeo Smyth pH (U) 6.5 [pH] Normal 5-9 [facility] Comment on above: Performed By: #### SANDRO MERCHANTRO ####[facility] Ehpcuogctw[address] [place], [place] [address]Dr. Tadeo Smyth SPEC GRAVITY 1.015 Normal 1.005-<=1.0 25 [facility] Comment on above: Performed By: #### SANDRO MERCHANTRO ####[facility] Ttdmgmwkhn[address] [place], [place] [address]Dr. Tadeo Smyth UA PROTEIN Negative Normal NEGATIVE/ TRACE The [facility] Comment on above: Performed By: #### KAROL MERCHANT ####[facility] Mpuoktvbur7[address] [place], [place] [address]Dr. Tadeo Smyth UR MICRO IND INDICATED Normal The [facility] Comment on above: Performed By: #### SANDRO MERCHANTRO ####[facility] Roiqqtvrjw[address] [place], [place] [address]Dr. Tadeo Smyth Urobilinogen Qn (U) 0.2 {Benito'U}/dL Normal 0.2 - 1. 0 [facility] Comment on above: Performed By: #### E RUR, UMICRO ####[facility] [address]kt[address] [place] [address]Dr. Tadeo Smyth LIPASEon 06-04-2022 Lipase [Catalytic activity/Vol] 81.0 U/L Normal 73.0-393.0 [facility] Comment on above: Performed By: #### A MY, CMP, LIPA ####[facility] V[address]jmnwq[address] [place] [address]Dr. Tadeo Smyth PROF 14(COMP METB)on 022 Albumin [Mass/Vol] 3.6 g/dL Normal 3.4-5.0 [facility] Comment on above: Performed By: #### A MY, CMP, LIPA ####[facility] Joezlyyzkr[address] [place] [address]Dr. Tadeo Smyth Albumin/Globulin [Mass ratio] 1.0 {ratio} Normal [facility] Comment on above: Performed By: #### A MY, CMP, LIPA ####[facility] Ytlhliqxri[address] [place] [address]Dr. Tadeo Smyth ALP [Catalytic activity/Vol] 150 U/L Critically high 46-116 [facility] Comment on above: Performed By: #### A MY, CMP, LIPA ####[facility] Ozqirnfans[address] [place] [address]Dr. Tadeo Smyth ALT [Catalytic activity/Vol] 23 U/L Normal 14-59 [facility] Comment on above: Performed By: #### A MY, CMP, LIPA ####[facility] Rwehfotbfo[address] [place] [address]Dr. Tadeo Smyth Anion gap [Moles/Vol] 13.2 mmol/L Normal [facility] Comment on above: Performed By: #### A MY, CMP, LIPA ####[facility] Ajqmadlbux[address] [place] [address]Dr. Tadeo Smyth AST [Catalytic activity/Vol] 12 U/L Critically low 15-37 [facility] Comment on above: Performed By: #### A MY, CMP, LIPA ####[facility] Pmcvlkbbtg[address] [place] [address]Dr. Tadeo Smyth Bilirubin [Mass/Vol] 0.1 mg/dL Critically low 0.2-1.0 The [facility] Comment on above: Performed By: #### A MY, CMP, LIPA ####[facility] Zpdkbogngt[address] [place] [address]Dr. Tadeo Smyth Calcium [Mass/Vol] 9.0 mg/dL Normal 8.5-10.1 The [facility] Comment on above: Performed By: #### A MY, CMP, LIPA ####[facility] Bpedbfpuqm[address] [place], [place] [address]Dr. Tadeo Smyth Chloride [Moles/Vol] 104 mmol/L Normal 98-107 The [facility] Comment on above: Performed By: #### A MY, CMP, LIPA ####[facility] Mqonjdglgf[address] [place], [place] [address]Dr. Tadeo Smyth CO2 [Moles/Vol] 26.6 mmol/L Normal 21.0-32.0 The [facility] Comment on above: Performed By: #### A MY, CMP, LIPA ####[facility] Jamrqnrgfl[address] [place], [place] [address]Dr. Tadeo Smyth Creatinine [Mass/Vol] 0.97 mg/dL Normal 0.55-1.02 The [facility] Comment on above: Performed By: #### A MY, CMP, LIPA ####[facility] [address]pmkksmchl[address] [place], [place] [address]Dr. Tadeo Smyth EGFR-AF LUXEMBOURGER >60 Normal >=60 The [facility] Comment on above: Performed By: #### A MY, CMP, LIPA ####[facility] X[address]xtjxhb[address] [place] [address]Dr. Tadeo Smyth EGFR-NON AF LUXEMBOURGER 60 mL/min/1.73m2 Normal >=60 The [facility] Comment on above: Performed By: #### A MY, CMP, LIPA ####[facility] Nehybrtzyl[address] [place] [address]Dr. Tadeo Smyth Globulin (S) [Mass/Vol] 3.7 g/dL Normal The [facility] Comment on above: Performed By: #### A MY, CMP, LIPA ####[facility] Mvemthmmmc[address] [place] [address]Dr. Tadeo Smyth Glucose [Mass/Vol] 109 mg/dL Critically high 74-[address] [facility] Comment on above: Performed By: #### A MY, CMP, LIPA ####[facility] Qwsqwszfgj[address] [place] [address]Dr. Tadeo Smyth Potassium [Moles/Vol] 3.8 mmol/L Normal 3.5-5.1 [facility] Comment on above: Performed By: #### A MY, CMP, LIPA ####[facility] Dkgjonmgvz[address] [place] [address]Dr. Tadeo Smyth Protein [Mass/Vol] 7.3 g/dL Normal 6.4-8.2 The [facility] Comment on above: Performed By: #### A MY, CMP, LIPA ####[facility] [address]mogftagzp[address] [place], [place] [address]Dr. Tadeo Smyth Sodium [Moles/Vol] 140 mmol/L Normal 136-145 [facility] Comment on above: Performed By: #### A MY, CMP, LIPA ####[facility] [address]yzpbqgbj[address] [place] [address]Dr. Tadeo Smyth Urea nitrogen [Mass/Vol] 21.0 mg/dL Critically high 7.0-18.0 [facility] Comment on above: Performed By: #### A MY, CMP, LIPA ####[facility] [address]pxjxu[address] [place] [address]Dr. Tadeo Smyth Urea nitrogen/Creatinine [Mass ratio] 21.6 mg/mg Normal The [facility] Comment on above: Performed By: #### A MY, CMP, LIPA ####[facility] [address]xnvxgis[address] [place] [address]Dr. Tadeo Smyth URINE MICROSCOPIC ONLYon BACTERIA NONE SEEN Normal NONE SEEN The [facility] Comment on above: Performed By: #### KAROL MERCHANT ####[facility] [address]mrws[address] [place] [address]Dr. Tadeo Smyth Bacteria identified Cx Nom (U) NOT INDICATED Normal The [facility] Comment on above: Performed By: #### RANDI MERCHANTICRO ####[facility] [address]uuye[address] [place] [address]Dr. Tadeo Smyth CAST NONE SEEN Normal NONE SEEN The [facility] Comment on above: Performed By: #### Matthew FRANCISCO UMICRO ####[facility] [address]exoalipfa[address] [place] [address]Dr. Tadeo Smyth Crystals LM Nom (Urine sed) NONE SEEN Normal NONE SEEN The [facility] Comment on above: Performed By: #### RANDI MERCHANTICRO ####[facility] [address]wiceej[address] [place] [address]Dr. Tadeo Smyth Epithelial cells LM Ql (Urine sed) FEW Abnormal NONE SEEN /RARE The [facility] Comment on above: Performed By: #### Matthew FRANCISCO UMICRO ####[facility] Rmurrdsapr[address] [place] [address]Dr. Tadeo Smyth MUCOUS NONE SEEN Normal NONE SEEN The [facility] Comment on above: Performed By: #### Matthew FRANCISCO UMICRO ####[facility] Sdevraamcz[address] [place] [address]Dr. Tadeo Smyth RBC 0-2 Normal 0-2 The [facility] Comment on above: Performed By: #### Matthew FRANCISCO UMICRO ####[facility] Gdbirveiaz[address] [place] [address]Dr. Tadeo Smyth WBC NONE SEEN Normal NONE SEEN The [facility] Comment on above: Performed By: #### Matthew FRANCISCO UMICRO ####[facility] [address]jfwbct[address] [place] [address]Dr. Tadeo Smyth MICRO OTHER TESTSOrdered By: Guillermo Rocha on 04-29-2022 Fecal WBC Lactoferrin Negative (04/29/22 8:00 AM) Normal Negative [facility] [place] Sero CULTURE URINEon 03-31-2022 CULTURE URINE Normal The [facility] Comment on above: Performed By: #### U RCX ####[facility] Cymxyeislr[address] [place] [address]Dr. Tadeo Haja CBC AUTO DIFFon 03-30-2022 BASO # 0.0 103/ul Normal 0.0-0.1 The [facility] Comment on above: Performed By: #### C BC ####[facility] X[address]fbqz[address] [place], [place] [id number]. Margotnicole Smyth Basophils/100 WBC (Bld) 0.4 % Normal 0.2-2.0 The [facility] Comment on above: Performed By: #### C BC ####[facility] Qxbsqnwgtb[address] [place], [place] [address]Dr. Tadeo Haja EO # 0.3 103/ul Normal 0.0-0.7 The [facility] Comment on above: Performed By: #### C BC ####[facility] Aibiyexwzs[address] [place], [place] [address]Dr. Margotnicole Smyth Eosinophils/100 WBC (Bld) 5.1 % Normal 0.9-7.0 The [facility] Comment on above: Performed By: #### C BC ####[facility] Xsekmzdvmb7[address] [place], [place] [address]Dr. Margotnicole Smyth Erythrocyte distribution width (RBC) [Ratio] 12.8 % Normal 11.0-15.0 The [facility] Comment on above: Performed By: #### C BC ####[facility] Yssrsyiwyr[address] [place], [place] [address]Dr. Margotnicole Smyth Hematocrit (Bld) [Volume fraction] 36.4 % Normal 36.0-48.0 The [facility] Comment on above: Performed By: #### C BC ####[facility] Rldchhdbgt[address] [place], [place] [address]Dr. Margotnicole Smyth Hemoglobin (Bld) [Mass/Vol] 12.0 g/dL Normal 12.0-16.0 The [facility] Comment on above: Performed By: #### C BC ####[facility] Llersrmlwp[address] [place], [place] [address]Dr. Tadeo Smyth IG # 0.02 10e3/ul Normal 0.00-0.03 The [facility] Comment on above: Performed By: #### C BC ####[facility] Zxkchwbqrr[address] [place] [id number]. Tadeo Smyth IG % 0.4 % Normal 0.0-0.5 The [facility] Comment on above: Performed By: #### C BC ####[facility] Asxhytkuoy[address] [place] [id number]. Tadeo Smyth LYMPH # 1.4 103/ul Normal 1.2-3.8 The [facility] Comment on above: Performed By: #### C BC ####[facility] [address]taqftx[address] [place], [place] [address]Dr. Tadeo Smyth Lymphocytes/100 WBC (Bld) 25.5 % Normal 20.5-60.0 [facility] Comment on above: Performed By: #### C BC ####[facility] Ogvpdpqwrt[address] [place], [place] [address]Dr. Tadeo Smyth MANUAL DIFF REQ NO Normal The [facility] Comment on above: Performed By: #### C BC ####[facility] [address]osjnr[address] [place], [place] [address]Dr. Tadeo Smyth MCH (RBC) [Entitic mass] 29.1 pg Normal 26.7-34.0 The [facility] Comment on above: Performed By: #### C BC ####[facility] Ifceutaria[address] [place], [place] [address]Dr. Tadeo Smyth MCHC (RBC) [Mass/Vol] 33.0 g/dL Normal 29.9-35.2 The [facility] Comment on above: Performed By: #### C BC ####[facility] [address]jmezuow[address] [place], [place] [address]Dr. Tadeo Smyth MCV (RBC) [Entitic vol] 88.3 fL Normal 81.0-99.0 The [facility] Comment on above: Performed By: #### C BC ####[facility] Eztsenkueb[address] [place] [address]Dr. Tadeo Smyth MONO # 0.4 103/ul Normal 0.3-0.8 The [facility] Comment on above: Performed By: #### C BC ####[facility] Fpvodbimmz66[address] [place] [id number]. Tadeo Smyth Monocytes/100 WBC (Bld) 7.1 % Normal 1.7-12.0 The [facility] Comment on above: Performed By: #### C BC ####[facility] Iioqcjxchj[address] [place] [id number]. Tadeo Smyth NEUT # 3.4 103/ul Normal 1.4-6.5 [facility] Comment on above: Performed By: #### C BC ####[facility] Kyolielxwa[address] [place] [id number]. Tadeo Smyth Neutrophils/100 WBC (Bld) 61.5 % Normal 43.0-75.0 [facility] Comment on above: Performed By: #### C BC ####[facility] Etllemmwih[address] [place] [address]Dr. Tadeo Smyth Platelet mean volume (Bld) [Entitic vol] 8.8 fL Critically low 9.5-13.5 [facility] Comment on above: Performed By: #### C BC ####[facility] Itpbkfhpmj4[address] [place] [address]Dr. Tadeo Smyth PLT 324 103/ul Normal 150-450 [facility] Comment on above: Performed By: #### C BC ####[facility] Cpdscwqxcn66[address] [place] [address]Dr. Tadeo Smyth RBC 4.12 106/ul Critically low 4.20-5.40 The [facility] Comment on above: Performed By: #### C BC ####[facility] Xjltistskb[address]67 [place] [address]Dr. Tadeo Smyth WBC 5.5 103/ul Normal 4.0-11.0 [facility] Comment on above: Performed By: #### C BC ####[facility] Bczjocaljz8[address] [place] [address]Dr. Margotnicole Smyth PROF 14(COMP METB)on 022 Albumin [Mass/Vol] 3.1 g/dL Critically low 3.4-5.0 [facility] Comment on above: Performed By: #### C MP ####[facility] Izofqinzsr66[address] [place] [address]Dr. Tadeo Haja Albumin/Globulin [Mass ratio] 0.9 {ratio} Normal [facility] Comment on above: Performed By: #### C MP ####[facility] Nmjcfcjxjg0684 [place] [id number]. Tadeo Haja ALP [Catalytic activity/Vol] 119 U/L Critically high 46-116 The [facility] Comment on above: Performed By: #### C MP ####[facility] Tscasxggnj8[address] [place] [address]Dr. Tadeo Haja ALT [Catalytic activity/Vol] 17 U/L Normal 14-59 [facility] Comment on above: Performed By: #### C MP ####[facility] [address]zklrlmomf[address] [place], [place] [address]Dr. Tadeo Smyth Anion gap [Moles/Vol] 12.0 mmol/L Normal [facility] Comment on above: Performed By: #### C MP ####[facility] Ngwtvknmwp[address] [place], [place] [address]Dr. Tadeo Haja AST [Catalytic activity/Vol] 16 U/L Normal 15-37 [facility] Comment on above: Performed By: #### C MP ####[facility] Oawuroyajc[address] [place], [place] [address]Dr. Margotnicole Haja Bilirubin [Mass/Vol] 0.4 mg/dL Normal 0.2-1.0 The [facility] Comment on above: Performed By: #### C MP ####[facility] Uqdwtjsuub[address] [place], [place] [address]Dr. Tadeo Smyth Calcium [Mass/Vol] 8.9 mg/dL Normal 8.5-10.1 The [facility] Comment on above: Performed By: #### C MP ####[facility] Hptlaeniqf[address] [place], [place] [address]Dr. Tadeo Smyth Chloride [Moles/Vol] 107 mmol/L Normal 98-107 The [facility] Comment on above: Performed By: #### C MP ####[facility] Kpubroojze027[address] [place], [place] [address]Dr. Tadeo Smyth CO2 [Moles/Vol] 26.9 mmol/L Normal 21.0-32.0 The [facility] Comment on above: Performed By: #### C MP ####[facility] Oohxyixgnj[address] [place], [place] [address]Dr. Tadeo Haja Creatinine [Mass/Vol] 0.82 mg/dL Normal 0.55-1.02 The [facility] Comment on above: Performed By: #### C MP ####[facility] Nrpbopuyit[address] [place], [place] [address]Dr. Tadeo Haja EGFR-AF LUXEMBOURGER >60 Normal >=60 The [facility] Comment on above: Performed By: #### C MP ####[facility] Ssfynttrgg[address] [place], [place] [address]Dr. Tadeo Haja EGFR-NON AF LUXEMBOURGER >60 Normal >=60 The [facility] Comment on above: Performed By: #### C MP ####[facility] Jvtyyjhsbf[address] [place], [place] [address]Dr. Tadeo Haja Globulin (S) [Mass/Vol] 3.5 g/dL Normal The [facility] Comment on above: Performed By: #### C MP ####[facility] Jovbogmvug[address] [place], [place] [address]Dr. Tadeo Haja Glucose [Mass/Vol] 104 mg/dL Normal 74-106 The [facility] Comment on above: Performed By: #### C MP ####[facility] Zfrmgpdkcw[address] [place], [place] [address]Dr. Tadeo Haja Potassium [Moles/Vol] 3.9 mmol/L Normal 3.5-5.1 The [facility] Comment on above: Performed By: #### C MP ####[facility] Ugscssjynb[address]38[address] [place], [place] [address]Dr. Margotnicole Haja Protein [Mass/Vol] 6.6 g/dL Normal 6.4-8.2 The [facility] Comment on above: Performed By: #### C MP ####[facility] Pbllndrfsr8[address] [place], [place] [address]Dr. Tadeo Haja Sodium [Moles/Vol] 142 mmol/L Normal 136-145 The [facility] Comment on above: Performed By: #### C MP ####[facility] Gorbiqdsae[address] [place], [place] [address]Dr. Tadeo Smyth Urea nitrogen [Mass/Vol] 5.0 mg/dL Critically low 7.0-18.0 The [facility] Comment on above: Performed By: #### C MP ####[facility] Ydlbvodxed[address] [place], [place] [address]Dr. Tadeo Haja Urea nitrogen/Creatinine [Mass ratio] 6.1 mg/mg Normal The [facility] Comment on above: Performed By: #### C MP ####[facility] Egtiqozyyh[address] [place], [place] [address]Dr. Tadeo Haja CBC AUTO DIFFon 03-29-2022 BASO # 0.0 103/ul Normal 0.0-0.1 [facility] Comment on above: Performed By: #### C BC ####[facility] Rwhgsofitf[address] [place], [place] [address]Dr. Tadeo Haja Basophils/100 WBC (Bld) 0.4 % Normal 0.2-2.0 The [facility] Comment on above: Performed By: #### C BC ####[facility] Hliqhprufu[address] [place], [place] [address]Dr. Tadeo Haja EO # 0.2 103/ul Normal 0.0-0.7 The [facility] Comment on above: Performed By: #### C BC ####[facility] Wgnszaxbqm[address] [place], [place] [address]Dr. Tadeo Haja Eosinophils/100 WBC (Bld) 4.3 % Normal 0.9-7.0 The [facility] Comment on above: Performed By: #### C BC ####[facility] Anjysmiuca[address] [place], [place] [address]Dr. Tadeo Haja Erythrocyte distribution width (RBC) [Ratio] 12.9 % Normal 11.0-15.0 The [facility] Comment on above: Performed By: #### C BC ####[facility] Zffwsowkdl[address] [place], [place] [address]Dr. Tadeo Smyth Hematocrit (Bld) [Volume fraction] 33.8 % Critically low 36.0-48.0 The [facility] Comment on above: Performed By: #### C BC ####[facility] Kqhafstvny[address] [place] [address]Dr. Tadeo Smyth Hemoglobin (Bld) [Mass/Vol] 11.1 g/dL Critically low 12.0-16.0 The [facility] Comment on above: Performed By: #### C BC ####[facility] Cphjwsaesg[address] [place], [place] [address]Dr. Tadeo Smyth IG # 0.01 10e3/ul Normal 0.00-0.03 The [facility] Comment on above: Performed By: #### C BC ####[facility] Ohiygpwmmt6[address] [place] [address]Dr. Tadeo Smyth IG % 0.2 % Normal 0.0-0.5 The [facility] Comment on above: Performed By: #### C BC ####[facility] Uoqsyykzfl[address] [place], [place] [address]Dr. Tadeo Smyth LYMPH # 1.5 103/ul Normal 1.2-3.8 The [facility] Comment on above: Performed By: #### C BC ####[facility] Cpkcysrlgm[address] [place], [place] [address]DrNeo Smyth Lymphocytes/100 WBC (Bld) 29.9 % Normal 20.5-60.0 The [facility] Comment on above: Performed By: #### C BC ####[facility] Mlwgndegmi[address] [place], [place] [address]DrNeo Smyth MANUAL DIFF REQ NO Normal The [facility] Comment on above: Performed By: #### C BC ####[facility] Wfvlelglwv[address] [place], [place] [address]Dr. Tadeo Smyth MCH (RBC) [Entitic mass] 29.3 pg Normal 26.7-34.0 The [facility] Comment on above: Performed By: #### C BC ####[facility] Olsyzkptuo[address] [place], [place] [address]Dr. Tadeo Smyth MCHC (RBC) [Mass/Vol] 32.8 g/dL Normal 29.9-35.2 The [facility] Comment on above: Performed By: #### C BC ####[facility] [address]frmf[address]rx[address] [place] [address]DrNeo Frostnicole Haja MCV (RBC) [Entitic vol] 89.2 fL Normal 81.0-99.0 The [facility] Comment on above: Performed By: #### C BC ####[facility] Pahbvwyszs[address] [place], [place] [address]DrNeo Smyth MONO # 0.4 103/ul Normal 0.3-0.8 The [facility] Comment on above: Performed By: #### C BC ####[facility] Ffwyepxxyu149[address] [place], [place] [address]DrNeo Smyth Monocytes/100 WBC (Bld) 7.8 % Normal 1.7-12.0 The [facility] Comment on above: Performed By: #### C BC ####[facility] Sshfcpetik659[address] [place], [place] [address]Dr. Tadeo Smyth NEUT # 2.8 103/ul Normal 1.4-6.5 The [facility] Comment on above: Performed By: #### C BC ####[facility] Tmauxicmtw8[address] [place], [place] [address]DrNeo Smyth Neutrophils/100 WBC (Bld) 57.4 % Normal 43.0-75.0 The [facility] Comment on above: Performed By: #### C BC ####[facility] Eeoeqafeis[address] [place], [place] [address]DrNeo Smyth Platelet mean volume (Bld) [Entitic vol] 8.9 fL Critically low 9.5-13.5 The [facility] Comment on above: Performed By: #### C BC ####[facility] Qgnrooqxww33[address] [place], [place] [address]DrNeo Smyth PLT 314 103/ul Normal 150-450 The [facility] Comment on above: Performed By: #### C BC ####[facility] Awdidaykqm850[address] [place], [place] [address]DrNeo Smyth RBC 3.79 106/ul Critically low 4.20-5.40 The [facility] Comment on above: Performed By: #### C BC ####[facility] Klrnxrvvqz[address] [place] [address]Dr. Tadeo Smyth WBC 4.9 103/ul Normal 4.0-11.0 [facility] Comment on above: Performed By: #### C BC ####[facility] Xseqdlwarp25[address] [place] [address]DrNeo Smyth PROF 14(COMP METB)on 022 Albumin [Mass/Vol] 2.8 g/dL Critically low 3.4-5.0 e [facility] Comment on above: Performed By: #### C MP ####[facility] Mdkdankquo9[address] [place] [address]Dr. Tadeo Smyth Albumin/Globulin [Mass ratio] 0.8 {ratio} Normal [facility] Comment on above: Performed By: #### C MP ####[facility] Ibvdygnopm812[address] [place], [place] [address]Dr. Tadeo Smyth ALP [Catalytic activity/Vol] 117 U/L Critically high 46-116 [facility] Comment on above: Performed By: #### C MP ####[facility] Nnludctabr38[address] [place], [place] [address]Dr. Tadeo Smyth ALT [Catalytic activity/Vol] 13 U/L Critically low 14-59 [facility] Comment on above: Performed By: #### C MP ####[facility] Wwyklxqqea79[address] [place], [place] [address]DrNeo Smyth Anion gap [Moles/Vol] 8.7 mmol/L Normal [facility] Comment on above: Performed By: #### C MP ####[facility] Qrnnopqpoy8733[address] [place], [place] [address]DrNeo Smyth AST [Catalytic activity/Vol] 12 U/L Critically low 15-37 The [facility] Comment on above: Performed By: #### C MP ####[facility] Ktyifwpceh5049[address] [place], [place] [address]DrNeo Smyth Bilirubin [Mass/Vol] 0.4 mg/dL Normal 0.2-1.0 The [facility] Comment on above: Performed By: #### C MP ####[facility] Kegqiqomnh067[address] [place], [place] [address]Dr. Tadeo Smyth Calcium [Mass/Vol] 8.5 mg/dL Normal 8.5-10.1 [facility] Comment on above: Performed By: #### C MP ####[facility] Gianytjsov6665[address] [place], [place] [address]Dr. Tadeo Smyth Chloride [Moles/Vol] 108 mmol/L Critically high 98-107 [facility] Comment on above: Performed By: #### C MP ####[facility] Lludsdgewo924[address] [place], [place] [address]Dr. Tadeo Smyth CO2 [Moles/Vol] 28.0 mmol/L Normal 21.0-32.0 [facility] Comment on above: Performed By: #### C MP ####[facility] Nkkpfmistp3215[address] [place], [place] [address]Dr. Tadeo Smyth Creatinine [Mass/Vol] 0.74 mg/dL Normal 0.55-1.02 The [facility] Comment on above: Performed By: #### C MP ####[facility] Blmmcxnqyk25217[address] [place], [place] [address]Dr. Tadeo Haja EGFR-AF LUXEMBOURGER >60 Normal >=60 The [facility] Comment on above: Performed By: #### C MP ####[facility] Tdvjfryeho9450[address] [place], [place] [address]Dr. Tadeo Haja EGFR-NON AF LUXEMBOURGER >60 Normal >=60 The [facility] Comment on above: Performed By: #### C MP ####[facility] Kckrofkufj2501[address] [place], [place] [address]Dr. Margotnicole Smyth Globulin (S) [Mass/Vol] 3.4 g/dL Normal The [facility] Comment on above: Performed By: #### C MP ####[facility] Etwhspzeyb559[address] [place], [place] [address]Dr. Tadeo Smyth Glucose [Mass/Vol] 107 mg/dL Critically high 74-[address] [facility] Comment on above: Performed By: #### C MP ####[facility] Qgcngfefzj15[address] [place] [address]Dr. Tadeo Smyth Potassium [Moles/Vol] 3.7 mmol/L Normal 3.5-5.1 [facility] Comment on above: Performed By: #### C MP ####[facility] Xmlxatshsa319[address] [place], [place] [address]Dr. Tadeo Smyth Protein [Mass/Vol] 6.2 g/dL Critically low 6.4-8.2 Th [facility] Comment on above: Performed By: #### C MP ####[facility] Ftumvlsotv450[address] [place], [place] [address]Dr. Tadeo Smyth Sodium [Moles/Vol] 141 mmol/L Normal 136-145 [facility] Comment on above: Performed By: #### C MP ####[facility] Qhchnlyphp6435[address] [place], [place] [address]Dr. Tadeo Haja Urea nitrogen [Mass/Vol] 7.0 mg/dL Normal 7.0-18.0 [facility] Comment on above: Performed By: #### C MP ####[facility] Csrhfqmuld674[address] [place], [place] [address]Dr. Tadeo Smyth Urea nitrogen/Creatinine [Mass ratio] 9.5 mg/mg Normal [facility] Comment on above: Performed By: #### C MP ####[facility] Qkdxosfqci0216[address] [place], [place] [address]Dr. Tadeo Haja XR KUB 1 VIEWon 03-29-2022 XR KUB 1 VIEW Normal [facility] CBC AUTO DIFFon 03-28-2022 BASO # 0.0 103/ul Normal 0.0-0.1 The [facility] Comment on above: Performed By: #### C BC ####[facility] Rvahmiicih769[address] [place], [place] [address]Dr. Tadeo Haja Basophils/100 WBC (Bld) 0.7 % Normal 0.2-2.0 [facility] Comment on above: Performed By: #### C BC ####[facility] Lqrelrfmyd6[address] [place] [id number]. Tadeo Smyth EO # 0.2 103/ul Normal 0.0-0.7 The [facility] Comment on above: Performed By: #### C BC ####[facility] Xkwdykkfht72[address] [place] [address]Dr. Tadeo Smyth Eosinophils/100 WBC (Bld) 3.3 % Normal 0.9-7.0 The [facility] Comment on above: Performed By: #### C BC ####[facility] Ecwdphumfq45[address] [place] [address]Dr. Tadeo Smyth Erythrocyte distribution width (RBC) [Ratio] 13.2 % Normal 11.0-15.0 The [facility] Comment on above: Performed By: #### C BC ####[facility] Ajlaijvdyw169[address] [place], [place] [address]Dr. Tadeo Smyth Hematocrit (Bld) [Volume fraction] 34.2 % Critically low 36.0-48.0 The [facility] Comment on above: Performed By: #### C BC ####[facility] Vgjbupgcxi2[address] [place], [place] [address]Dr. Tadeo Smyth Hemoglobin (Bld) [Mass/Vol] 10.8 g/dL Critically low 12.0-16.0 The [facility] Comment on above: Performed By: #### C BC ####[facility] Y[address]cle[address] [place] [address]Dr. Tadeo Smyth IG # 0.01 10e3/ul Normal 0.00-0.03 The [facility] Comment on above: Performed By: #### C BC ####[facility] Rhreeynwcj7[address] [place] [address]Dr. Tadeo Smyth IG % 0.2 % Normal 0.0-0.5 The [facility] Comment on above: Performed By: #### C BC ####[facility] Mtauumntuu32[address] [place], [place] [address]Dr. Tadeo Smyth LYMPH # 1.3 103/ul Normal 1.2-3.8 The [facility] Comment on above: Performed By: #### C BC ####[facility] Obpqlxlfsg67[address] [place] [id number]. Tadeo Haja Lymphocytes/100 WBC (Bld) 28.4 % Normal 20.5-60.0 The [facility] Comment on above: Performed By: #### C BC ####[facility] S[address]tleqjd[address] [place] [address]Dr. Tadeo Haja MANUAL DIFF REQ NO Normal The [facility] Comment on above: Performed By: #### C BC ####[facility] Kvrsmygsiw70[address] [place] [address]Dr. Tadeo Haja MCH (RBC) [Entitic mass] 28.3 pg Normal 26.7-34.0 The [facility] Comment on above: Performed By: #### C BC ####[facility] Paepgkiwvc114[address] [place], [place] [address]Dr. Tadeo Haja MCHC (RBC) [Mass/Vol] 31.6 g/dL Normal 29.9-35.2 The [facility] Comment on above: Performed By: #### C BC ####[facility] Tnwzumqhvd[address] [place], [place] [address]Dr. Margotnicole Smyth MCV (RBC) [Entitic vol] 89.5 fL Normal 81.0-99.0 The [facility] Comment on above: Performed By: #### C BC ####[facility] Eoyikcvmsk384[address] [place], [place] [address]Dr. Tadeo Smyth MONO # 0.3 103/ul Normal 0.3-0.8 The [facility] Comment on above: Performed By: #### C BC ####[facility] [address]mgrjwiyso[address] [place] [address]Dr. Margotnicole Smyth Monocytes/100 WBC (Bld) 5.5 % Normal 1.7-12.0 The [facility] Comment on above: Performed By: #### C BC ####[facility] Bjgcjcqxng335[address] [place], [place] [address]Dr. Tadeo Smyth NEUT # 2.8 103/ul Normal 1.4-6.5 The [facility] Comment on above: Performed By: #### C BC ####[facility] Uuindcabzb88[address] [place] [id number]. Tadeo Smyth Neutrophils/100 WBC (Bld) 61.9 % Normal 43.0-75.0 [facility] Comment on above: Performed By: #### C BC ####[facility] Zkgyfkcoie92[address] [place] [address]Dr. Tadeo Smyth Platelet mean volume (Bld) [Entitic vol] 9.1 fL Critically low 9.5-13.5 The [facility] Comment on above: Performed By: #### C BC ####[facility] Sjqxfrkzml7399 [place] [id number]. Tadeo Smyth PLT 327 103/ul Normal 150-450 The [facility] Comment on above: Performed By: #### C BC ####[facility] Jjbvlbniae18[address] [place] [address]Dr. Tadeo Haja RBC 3.82 106/ul Critically low 4.20-5.40 [facility] Comment on above: Performed By: #### C BC ####[facility] Cfzgtugcqi8516 [place] [address]Dr. Tadeo Smyth WBC 4.5 103/ul Normal 4.0-11.0 [facility] Comment on above: Performed By: #### C BC ####[facility] Vgaejqnfak[address] [place], [place] [address]Dr. Tadeo Haja POINT OF CARE GLUCOSEon 03-06 Glucose [Mass/Vol] 84 mg/dL Normal 74-106 [facility] Comment on above: Performed By: #### P OCGLUC ####[facility] Sgopciqktb[address] [place], [place] [address]Dr. Margotnicole Smyth PROF 14(COMP METB)on 022 Albumin [Mass/Vol] 2.9 g/dL Critically low 3.4-5.0 [facility] Comment on above: Performed By: #### C MP ####[facility] [address]xqqcgzmj[address] [place], [place] [id number]. Tadeo Smyth Albumin/Globulin [Mass ratio] 0.9 {ratio} Normal The [facility] Comment on above: Performed By: #### C MP ####[facility] [address]vflwdvjsu4[address] [place] [id number]. Tadeo Smyth ALP [Catalytic activity/Vol] 119 U/L Critically high 46-116 The [facility] Comment on above: Performed By: #### C MP ####[facility] Yhpjauafzf6627 [place] [id number]. Tadeo Smyth ALT [Catalytic activity/Vol] 15 U/L Normal 14-59 The [facility] Comment on above: Performed By: #### C MP ####[facility] Ffkggufkzy91[address] [place] [address]Dr. Tadeo Smyth Anion gap [Moles/Vol] 7.9 mmol/L Normal [facility] Comment on above: Performed By: #### C MP ####[facility] Vmkusotvxh0391 [place] [address]Dr. Tadeo Smyth AST [Catalytic activity/Vol] 11 U/L Critically low 15-37 The [facility] Comment on above: Performed By: #### C MP ####[facility] Hiooieqvxm88[address] [place] [address]Dr. Tadeo Smyth Bilirubin [Mass/Vol] 0.4 mg/dL Normal 0.2-1.0 The [facility] Comment on above: Performed By: #### C MP ####[facility] [address]ouutqfww33[address] [place] [address]Dr. Tadeo Smyth Calcium [Mass/Vol] 8.7 mg/dL Normal 8.5-10.1 The [facility] Comment on above: Performed By: #### C MP ####[facility] Rqgcjacpqx7468 [place] [address]Dr. Tadeo Smyth Chloride [Moles/Vol] 109 mmol/L Critically high 98-107 The [facility] Comment on above: Performed By: #### C MP ####[facility] Nzhbpdnwlr8583 [place] [address]Dr. Tadeo Smyth CO2 [Moles/Vol] 27.9 mmol/L Normal 21.0-32.0 The [facility] Comment on above: Performed By: #### C MP ####[facility] Eotxuprfwi8214 [place] [address]Dr. Tadeo Smyth Creatinine [Mass/Vol] 0.75 mg/dL Normal 0.55-1.02 The [facility] Comment on above: Performed By: #### C MP ####[facility] Rkoxvpymhv45[address] [place] [address]Dr. Tadeo Smyth EGFR-AF LUXEMBOURGER >60 Normal >=60 The [facility] Comment on above: Performed By: #### C MP ####[facility] Lrdmbfaumd25[address] [place] [address]Dr. Tadeo Haja EGFR-NON AF LUXEMBOURGER >60 Normal >=60 [facility] Comment on above: Performed By: #### C MP ####[facility] Effnureqzc056[address] [place], [place] [address]Dr. Tadeo Haja Globulin (S) [Mass/Vol] 3.3 g/dL Normal [facility] Comment on above: Performed By: #### C MP ####[facility] Ntdvaqinho040[address] [place], [place] [address]Dr. Tadeo Haja Glucose [Mass/Vol] 95 mg/dL Normal 74-106 The [facility] Comment on above: Performed By: #### C MP ####[facility] Ddorkwyody0027[address] [place], [place] [address]Dr. Tadeo Haja Potassium [Moles/Vol] 3.8 mmol/L Normal 3.5-5.1 [facility] Comment on above: Performed By: #### C MP ####[facility] Yfcwjpjdrz[address]11[address] [place], [place] [address]Dr. Tadeo Haja Protein [Mass/Vol] 6.2 g/dL Critically low 6.4-8.2 Th e [facility] Comment on above: Performed By: #### C MP ####[facility] Qcdvsnrygb818[address] [place], [place] [address]Dr. Tadeo Haja Sodium [Moles/Vol] 141 mmol/L Normal 136-145 The [facility] Comment on above: Performed By: #### C MP ####[facility] Iyppezaxuf5414[address] [place], [place] [address]Dr. Tadeo Smyth Urea nitrogen [Mass/Vol] 8.0 mg/dL Normal 7.0-18.0 The [facility] Comment on above: Performed By: #### C MP ####[facility] Ncemonntbm1539[address] [place], [place] [address]Dr. Tadeo Smyth Urea nitrogen/Creatinine [Mass ratio] 10.7 mg/mg Normal The [facility] Comment on above: Performed By: #### C MP ####[facility] Djhdycjbak417[address] [place], [place] [address]Dr. Tadeo Smyth UA (CLEAN/CATCH) TIE HACKER/MICRO I F IND.on 03-28-2022 Bilirubin Ql (U) Negative Normal NEGATIVE The [facility] Comment on above: Performed By: #### U MARE ICRO ####[facility] Iqfufadtra033[address] [place], [place] [address]Dr. Tadeo Smyth Clarity (U) SL CLOUDY Abnormal CLEAR The [facility] Comment on above: Performed By: #### U MARE ICRO ####[facility] Ugmiylfqdq727[address] [place], [place] [address]Dr. Tadeo Smyth Color (U) LT. YELLOW Normal YELLOW The [facility] Comment on above: Performed By: #### U MARE ICRO ####[facility] Fgxieatkaa83[address] [place], [place] [address]Dr. Tadeo Smyth Glucose Ql (U) Negative Normal NEGATIVE The [facility] Comment on above: Performed By: #### U MARE ICRO ####[facility] Zmizwjxhss[address] [place], [place] [address]Dr. Tadeo Smyth Hemoglobin Ql (U) TRACE-INTACT Abnormal NEGATIVE The [facility] Comment on above: Performed By: #### U MARE ICRO ####[facility] Rxnpucvzne98[address] [place], [place] [address]Dr. Tadeo Smyth Ketones Ql (U) TRACE Abnormal NEGATIVE The [facility] Comment on above: Performed By: #### U ACSBLANE UMICRO ####[facility] Unwacvfqcb527[address] [place], [place] [address]Dr. Tadeo Smyth LEUKOCYTES Negative Normal NEGATIVE The [facility] Comment on above: Performed By: #### U ACSIND, UMICRO ####[facility] Kwdalyvins[address] [place] [address]Dr. Tadeo Smyth Nitrite Ql (U) Negative Normal NEGATIVE The [facility] Comment on above: Performed By: #### U ACSIND, UMICRO ####[facility] Avkjmciknc3597 [place] [address]Dr. Tadeo Smyth pH (U) 6.5 [pH] Normal 5-9 [facility] Comment on above: Performed By: #### U ACSBLANE, UMICRO ####[facility] Dlgqnxtydm7914 [place] [address]Dr. Tadeo Smyth SPEC GRAVITY 1.015 Normal 1.005-<=1.0 25 [facility] Comment on above: Performed By: #### U ACSBLANE, UMICRO ####[facility] Bsrurmploy[address] [place] [address]Dr. Tadeo Smyth UA PROTEIN Negative Normal NEGATIVE/ TRACE The [facility] Comment on above: Performed By: #### U ACSBLANE, UMICRO ####[facility] Fclpxwziyk50[address] [place] [address]Dr. Tadeo Smyth UR MICRO IND INDICATED Normal The [facility] Comment on above: Performed By: #### U ACSBLANE, UMICRO ####[facility] Fphubgeguc84[address] [place] [address]Dr. Tadeo Smyth Urobilinogen Qn (U) 0.2 {Benito'U}/dL Normal 0.2 - 1. 0 [facility] Comment on above: Performed By: #### U ACSBLANE, UMICRO ####[facility] Fcwzjazpdb5835 [place] [address]Dr. Tadeo Smyth URINE MICROSCOPIC ONLYon BACTERIA MODERATE Abnormal NONE SEEN The [facility] Comment on above: Performed By: #### U ACSIND, UMICRO ####[facility] Zocqxuwazs50[address] [place] [address]Dr. Tadeo Smyth Bacteria identified Cx Nom (U) INDICATED Normal The [facility] Comment on above: Performed By: #### U MARE UMICRO ####[facility] Sypvvsxwbm23[address] [place] [address]Dr. Tadeo Smyth CAST NONE SEEN Normal NONE SEEN The [facility] Comment on above: Performed By: #### U MARE UMICRO ####[facility] Zmvocnpowr9274 [place] [address]Dr. Tadeo Smyth Crystals LM Nom (Urine sed) NONE SEEN Normal NONE SEEN The [facility] Comment on above: Performed By: #### Rosita GARVEY ICRO ####[facility] Atkaqnvzgf[address] [place] [address]Dr. Tadeo Smyth Epithelial cells LM Ql (Urine sed) RARE Normal NONE SEEN /RARE The [facility] Comment on above: Performed By: #### Rosita GARVEY ICRO ####[facility] Lclpxzamez05[address] [place] [address]Dr. Tadeo Smyth MUCOUS NONE SEEN Normal NONE SEEN The [facility] Comment on above: Performed By: #### Rosita GARVEY ICRO ####[facility] Bglkwjifhj54[address] [place] [address]Dr. Tadeo Smyth RBC NONE SEEN Abnormal 0-2 The [facility] Comment on above: Performed By: #### Rosita GARVEY ICRO ####[facility] Suqgdhbuaf4376 [place] [address]Dr. Tadeo Smyth WBC 2-5 Abnormal NONE SEEN The [facility] Comment on above: Performed By: #### [facility] ####[facility] Tcztrxqtsy70[address] [place] [address]Dr. Tadeo Smyth XR ABD FLAT UP_PA Kasey 03-28 XR ABD FLAT UP_PA CH Normal The [facility] CBC AUTO DIFFon 03-27-2022 BASO # 0.0 103/ul Normal 0.0-0.1 The [facility] Comment on above: Performed By: #### C BC ####[facility] Xeidbgumzc0051 [place] [address]Dr. Tadeo Smyth Basophils/100 WBC (Bld) 0.5 % Normal 0.2-2.0 The [facility] Comment on above: Performed By: #### C BC ####[facility] Bzktnyyawl77[address] [place] [address]Dr. Tadeo Smyth EO # 0.2 103/ul Normal 0.0-0.7 The [facility] Comment on above: Performed By: #### C BC ####[facility] Untnvbodwm7[address] [place], [place] [address]Dr. Margotnicole Smyth Eosinophils/100 WBC (Bld) 3.2 % Normal 0.9-7.0 [facility] Comment on above: Performed By: #### C BC ####[facility] Uabbtoofum8[address] [place], [place] [address]Dr. Margotnicole Smyth Erythrocyte distribution width (RBC) [Ratio] 13.1 % Normal 11.0-15.0 [facility] Comment on above: Performed By: #### C BC ####[facility] Mumwxxonmc544[address] [place], [place] [address]Dr. Margotnicole Smyth Hematocrit (Bld) [Volume fraction] 34.8 % Critically low 36.0-48.0 [facility] Comment on above: Performed By: #### C BC ####[facility] Wmipydgdop[address] [place], [place] [address]Dr. Tadeo Smyth Hemoglobin (Bld) [Mass/Vol] 11.3 g/dL Critically low 12.0-16.0 The [facility] Comment on above: Performed By: #### C BC ####[facility] Bduzmqujoi89[address] [place], [place] [address]Dr. Margotnicole Smyth IG # 0.01 10e3/ul Normal 0.00-0.03 The [facility] Comment on above: Performed By: #### C BC ####[facility] Yitnsoglyx223[address] [place], [place] [address]Dr. Tadeo Smyth IG % 0.2 % Normal 0.0-0.5 The [facility] Comment on above: Performed By: #### C BC ####[facility] Egzungzdzc[address] [place], [place] [address]DrNeo Smyth LYMPH # 1.6 103/ul Normal 1.2-3.8 The [facility] Comment on above: Performed By: #### C BC ####[facility] Luotcyizup[address] [place] [address]Dr. Margotnicole Smyth Lymphocytes/100 WBC (Bld) 29.1 % Normal 20.5-60.0 [facility] Comment on above: Performed By: #### C BC ####[facility] [address] [place] [address]Dr. Tadeo Smyth MANUAL DIFF REQ NO Normal The [facility] Comment on above: Performed By: #### C BC ####[facility] [address]kk[address] [place] [address]Dr. Tadeo Smyth MCH (RBC) [Entitic mass] 29.1 pg Normal 26.7-34.0 The [facility] Comment on above: Performed By: #### C BC ####[facility] Bpqjrnnxcm[address] [place], [place] [address]Dr. Tadeo Smyth MCHC (RBC) [Mass/Vol] 32.5 g/dL Normal 29.9-35.2 The [facility] Comment on above: Performed By: #### C BC ####[facility] Ezgbfkswwi[address] [place], [place] [address]Dr. Tadeo Smyth MCV (RBC) [Entitic vol] 89.7 fL Normal 81.0-99.0 The [facility] Comment on above: Performed By: #### C BC ####[facility] Uwucjx[address]zvi[address] [place], [place] [address]Dr. Tadeo Smyth MONO # 0.3 103/ul Normal 0.3-0.8 The [facility] Comment on above: Performed By: #### C BC ####[facility] Hgummhvrud[address] [place], [place] [address]Dr. Tadeo Smyth Monocytes/100 WBC (Bld) 5.7 % Normal 1.7-12.0 The [facility] Comment on above: Performed By: #### C BC ####[facility] U[address] [place], [place] [id number] Smyth NEUT # 3.5 103/ul Normal 1.4-6.5 The [facility] Comment on above: Performed By: #### C BC ####[facility] [address]zxqjfrlvf[address] [place], [place] [address]Li. Tadeo Smyth Neutrophils/100 WBC (Bld) 61.3 % Normal 43.0-75.0 [facility] Comment on above: Performed By: #### C BC ####[facility] Umohclbotr26[address] [place], [place] [address]Sm. Tadeo Smyth Platelet mean volume (Bld) [Entitic vol] 9.1 fL Critically low 9.5-13.5 [facility] Comment on above: Performed By: #### C BC ####[facility] [address] [place] [id number]. Tadeo Smyth PLT 355 103/ul Normal 150-450 The [facility] Comment on above: Performed By: #### C BC ####[facility] Hcuhrvtdsk[address] [place] [id number]. Tadeo Smyth RBC 3.88 106/ul Critically low 4.20-5.40 [facility] Comment on above: Performed By: #### C BC ####[facility] Xyvvzlseeb4743 [place], [place] [address]Qb. Tadeo Smyth WBC 5.6 103/ul Normal 4.0-11.0 The [facility] Comment on above: Performed By: #### C BC ####[facility] Jjwuxfoxwl63[address] [place], [place] [address]We. Tadeo Smyth CT ABD/PELV W CONon 03-27-20 CT ABD/PELV W CON Normal The [facility] CT ABD/PELVIS WO CONon 03-27 CT ABD/PELVIS WO CON Normal The [facility] Covid-19 PCR ([facility])on 03-06 SARS-CoV-2 (COVID-19) RNA CHEN+probe Ql (Unsp spec) Not detected Normal NOT DETECTED The [facility] Comment on above: Result Comment: When diagnostic [...] for this test is supported by the [place] of Health and Human Service's declaration that [...] be used). Performed By: #### C VDTB ####[facility] Bovtwfdhgg[address] [place], [place] [address]Dr. Tadeo Smyth ER URINE PROFILEon 2 Bilirubin Ql (U) Negative Normal NEGATIVE The [facility] Comment on above: Performed By: #### Matthew BURLESONR, PREGU ####[facility] Fskocfcmap[address] [place], [place] [address]Dr. Tadeo Smyth Clarity (U) CLEAR Normal CLEAR The [facility] Comment on above: Performed By: #### Matthew BURLESONR, PREGU ####[facility] Bhraynklpe[address] [place], [place] [address]Dr. Tadeo Smyth Color (U) LT. YELLOW Normal YELLOW The [facility] Comment on above: Performed By: #### E RUR, PREGU ####[facility] Dpgtdhbjfv[address] [place], [place] [address]Dr. Tadeo Smyth ERUAHD A micrscopic examina tion will be performed if indicated. Normal The [facility] Comment on above: Performed By: #### E RUR, PREGU ####[facility] Fsydjmbycr[address] [place], [place] [address]Dr. Tadeo Smyth Glucose Ql (U) Negative Normal NEGATIVE The [facility] Comment on above: Performed By: #### E RUR, PREGU ####[facility] Kuaxsfsbik[address] [place], [place] [address]Dr. Tadeo Smyth Hemoglobin Ql (U) SMALL Abnormal NEGATIVE The [facility] Comment on above: Performed By: #### E RUR, PREGU ####[facility] [address]vfygtqw[address] [place] [address]Dr. Tadeo Smyth Ketones Ql (U) TRACE Abnormal NEGATIVE The [facility] Comment on above: Performed By: #### E RUR, PREGU ####[facility] Lygrrqpubr[address] [place], [place] [address]Dr. Tadeo Smyth LEUKOCYTES Negative Normal NEGATIVE The [facility] Comment on above: Performed By: #### E RUR, PREGU ####[facility] Jmltgvuoxv[address]23[address] [place], [place] [address]Dr. Tadeo Smyth Nitrite Ql (U) Negative Normal NEGATIVE The [facility] Comment on above: Performed By: #### E RUR, PREGU ####[facility] Fwxcihtzuc[address] [place], [place] [address]Dr. Margotnicole Smyth pH (U) 6.0 [pH] Normal 5-9 The [facility] Comment on above: Performed By: #### Matthew RUR, PREGU ####[facility] Fzrvuubjxc[address] [place], [place] [address]Dr. Margotnicole Smyth SPEC GRAVITY >=1.030 Abnormal 1.005-<=1.0 25 The [facility] Comment on above: Performed By: #### Matthew BURLESONR, PREGU ####[facility] Egxbbbgwiy[address] [place], [place] [address]Dr. Tadeo Smyth UA PROTEIN Negative Normal NEGATIVE/ TRACE The [facility] Comment on above: Performed By: #### E RUR, PREGU ####[facility] Ovuejdszdx[address] [place], [place] [address]Dr. Tadeo Smyth UR MICRO IND NOT INDICATED Normal The [facility] Comment on above: Performed By: #### E RUR, PREGU ####[facility] U[address]fjgafz[address] [place], [place] [address]Dr. Tadeo Smyth Urobilinogen Qn (U) 0.2 {Benito'U}/dL Normal 0.2 - 1. 0 [facility] Comment on above: Performed By: #### Matthew RUR, PREGU ####[facility] [address]vm[address]qwsmg[address] [place] [id number]. Tadeo Smyth LIPASEon 03-27-2022 Lipase [Catalytic activity/Vol] 126.0 U/L Normal 73.0-393.0 [facility] Comment on above: Performed By: #### L IPA, CMP ####[facility] [address]moj[address] [place] [id number]. Tadeo Smyth URon 03-27-2022 , QUAL Negative Normal NEGATIVE [facility] Comment on above: Performed By: #### E RUR, PREGU ####[facility] [address]zmcril[address] [place] [address]Dr. Tadeo Smyth PROF 14(COMP METB)on 022 Albumin [Mass/Vol] 3.6 g/dL Normal 3.4-5.0 [facility] Comment on above: Performed By: #### L IPA, CMP ####[facility] [address]vymx[address] [place] [address]Dr. Tadeo Smyth Albumin/Globulin [Mass ratio] 1.1 {ratio} Normal [facility] Comment on above: Performed By: #### L IPA, CMP ####[facility] [address]btxevlilb[address] [place] [address]Dr. Tadeo Smyth ALP [Catalytic activity/Vol] 139 U/L Critically high 46-116 [facility] Comment on above: Performed By: #### L IPA, CMP ####[facility] Awujvkynrn[address] [place] [address]Dr. Tadeo Smyth ALT [Catalytic activity/Vol] 18 U/L Normal 14-59 [facility] Comment on above: Performed By: #### L IPA, CMP ####[facility] Zwsnubxnkm[address] [place] [address]Dr. Tadeo Smyth Anion gap [Moles/Vol] 10.7 mmol/L Normal [facility] Comment on above: Performed By: #### L IPA, CMP ####[facility] Dhlegfcyus[address] [place] [address]Dr. Tadeo Smyth AST [Catalytic activity/Vol] 11 U/L Critically low 15-37 The [facility] Comment on above: Performed By: #### L IPA, CMP ####[facility] [address]umtpxllri[address] [place], [place] [address]Dr. Margotnicole Smyth Bilirubin [Mass/Vol] 0.2 mg/dL Normal 0.2-1.0 The [facility] Comment on above: Performed By: #### L IPA, CMP ####[facility] Ghqxjynjut[address] [place], [place] [address]Dr. Margotnicole Smyth Calcium [Mass/Vol] 9.0 mg/dL Normal 8.5-10.1 The [facility] Comment on above: Performed By: #### L IPA, CMP ####[facility] [address]exfjqkq[address] [place], [place] [address]Dr. Tadeo Smyth Chloride [Moles/Vol] 106 mmol/L Normal 98-107 The [facility] Comment on above: Performed By: #### L IPA, CMP ####[facility] Zbgogyizao[address] [place], [place] [address]Dr. Tadeo Smyth CO2 [Moles/Vol] 26.9 mmol/L Normal 21.0-32.0 The [facility] Comment on above: Performed By: #### L IPA, CMP ####[facility] Voyoqozjsf[address] [place], [place] [address]Dr. Tadeo Smyth Creatinine [Mass/Vol] 0.84 mg/dL Normal 0.55-1.02 The [facility] Comment on above: Performed By: #### L IPA, CMP ####[facility] Hvzvcnjikg[address] [place], [place] [address]Dr. Margotnicole Haja EGFR-AF LUXEMBOURGER >60 Normal >=60 The [facility] Comment on above: Performed By: #### L IPA, CMP ####[facility] Qwozbiluwt[address] [place], [place] [address]Dr. Tadeo Smyth EGFR-NON AF LUXEMBOURGER >60 Normal >=60 The [facility] Comment on above: Performed By: #### L IPA, CMP ####[facility] Sbglinbzyf[address] [place], [place] [address]Dr. Tadeo Smyth Globulin (S) [Mass/Vol] 3.4 g/dL Normal The [facility] Comment on above: Performed By: #### L IPA, CMP ####[facility] Irasjptmwd[address] [place], [place] [address]Dr. Tadeo Smyth Glucose [Mass/Vol] 96 mg/dL Normal 74-106 The [facility] Comment on above: Performed By: #### L IPA, CMP ####[facility] Pkwofoiqpk[address] [place], [place] [address]Dr. Tadeo Smyth Potassium [Moles/Vol] 3.6 mmol/L Normal 3.5-5.1 The [facility] Comment on above: Performed By: #### L IPA, CMP ####[facility] Pjsbtdrbtq[address] [place], [place] [address]Dr. Tadeo Smyth Protein [Mass/Vol] 7.0 g/dL Normal 6.4-8.2 The [facility] Comment on above: Performed By: #### L IPA, CMP ####[facility] Xuryrfxyik[address] [place], [place] [address]Dr. Tadeo Smyth Sodium [Moles/Vol] 140 mmol/L Normal 136-145 The [facility] Comment on above: Performed By: #### L IPA, CMP ####[facility] Jhcwlrdqjh[address] [place], [place] [address]Dr. Tadeo Smyth Urea nitrogen [Mass/Vol] 23.0 mg/dL Critically high 7.0-18.0 [facility] Comment on above: Performed By: #### L IPA, CMP ####[facility] Rfasxzityr[address] [place], [place] [address]Dr. Tadeo Smyth Urea nitrogen/Creatinine [Mass ratio] 27.4 mg/mg Normal The [facility] Comment on above: Performed By: #### L IPA, CMP ####[facility] Rkbcvzgday340[address] [place], [place] [address]Dr. Tadeo Smyth GROUP A STREP CULTUREon S. pyogenes Ag Ql (Unsp spec) Normal The [facility] Comment on above: Performed By: #### G RASTCX, SSCRN ####[facility] Ccfnakhfty[address] [place], [place] [address]Dr. Tadeo Smyth AMYLASEon 02-02-2022 Amylase [Catalytic activity/Vol] 37 U/L Normal 25-115 The [facility] Comment on above: Performed By: #### C MP, FLACO HALLMANA ####[facility] [address]nfpgso[address] [place] [address]Dr. Tadeo Smyth CBC AUTO DIFFon 02-02-2022 BASO # 0.0 103/ul Normal 0.0-0.1 The [facility] Comment on above: Performed By: #### C BC ####[facility] Kpwlpkocqb[address] [place], [place] [address]Dr. Tadeo Smyth Basophils/100 WBC (Bld) 0.2 % Normal 0.2-2.0 The [facility] Comment on above: Performed By: #### C BC ####[facility] Oyemaeuvcm[address] [place], [place] [address]Dr. Tadeo Smyth EO # 0.0 103/ul Normal 0.0-0.7 The [facility] Comment on above: Performed By: #### C BC ####[facility] R[address]xmkgzjfa[address] [place], [place] [address]Dr. Tadeo Smyth Eosinophils/100 WBC (Bld) 0.2 % Critically low 0.9-7.0 [facility] Comment on above: Performed By: #### C BC ####[facility] [address]vhvarqw[address] [place], [place] [address]Dr. Tadeo Smyth Erythrocyte distribution width (RBC) [Ratio] 13.4 % Normal 11.0-15.0 The [facility] Comment on above: Performed By: #### C BC ####[facility] Nhisqlknjo[address] [place], [place] [address]Dr. Tadeo Smyth Hematocrit (Bld) [Volume fraction] 36.8 % Normal 36.0-48.0 The [facility] Comment on above: Performed By: #### C BC ####[facility] [address]kyemdapiw[address] [place], [place] [address]Dr. Tadeo Smyth Hemoglobin (Bld) [Mass/Vol] 11.6 g/dL Critically low 12.0-16.0 The [facility] Comment on above: Performed By: #### C BC ####[facility] [address] [place] [id number]. Tadeo Smyth IG # 0.08 10e3/ul Critically high 0.00-0.03 [facility] Comment on above: Performed By: #### C BC ####[facility] [address]wpqh[address] [place] [address]Dr. Tadeo Smyth IG % 0.6 % Critically high 0.0-0.5 [facility] Comment on above: Performed By: #### C BC ####[facility] [address]dsap[address] [place] [address]Dr. Tadeo Smyth LYMPH # 0.9 103/ul Critically low 1.2-3.8 [facility] Comment on above: Performed By: #### C BC ####[facility] [address]ho[address] [place], [place] [address]Dr. Margotnicole Smyth Lymphocytes/100 WBC (Bld) 6.9 % Critically low 20.5-60.0 [facility] Comment on above: Performed By: #### C BC ####[facility] [address]fqct[address]wxv[address] [place] [address]Dr. Tadeo Smyth MANUAL DIFF REQ NO Normal [facility] Comment on above: Performed By: #### C BC ####[facility] [address]fznvru[address] [place] [address]Dr. Tadeo Smyth MCH (RBC) [Entitic mass] 28.9 pg Normal 26.7-34.0 [facility] Comment on above: Performed By: #### C BC ####[facility] [address]qwffx[address] [place], [place] [address]Dr. Tadeo Smyth MCHC (RBC) [Mass/Vol] 31.5 g/dL Normal 29.9-35.2 The [facility] Comment on above: Performed By: #### C BC ####[facility] [address]nglyhyvno[address] [place] [address]Dr. Tadeo Smyth MCV (RBC) [Entitic vol] 91.8 fL Normal 81.0-99.0 [facility] Comment on above: Performed By: #### C BC ####[facility] [address]obuqghb[address] [place] [address]Dr. Tadeo Smyth MONO # 0.9 103/ul Critically high 0.3-0.8 The [facility] Comment on above: Performed By: #### C BC ####[facility] S[address]vbdefcl[address] [place] [id number]. Tadeo Smyth Monocytes/100 WBC (Bld) 6.9 % Normal 1.7-12.0 The [facility] Comment on above: Performed By: #### C BC ####[facility] Abbgwwikgo[address] [place] [id number]. Tadeo Smyth NEUT # 11.6 103/ul Critically high 1.4-6.5 The [facility] Comment on above: Performed By: #### C BC ####[facility] [address]fujdhs[address] [place] [address]Dr. Tadeo Smyth Neutrophils/100 WBC (Bld) 85.2 % Critically high 43.0-75.0 The [facility] Comment on above: Performed By: #### C BC ####[facility] [address]sujjymzem[address] [place] [address]Dr. Tadeo Smyth Platelet mean volume (Bld) [Entitic vol] 8.9 fL Critically low 9.5-13.5 The [facility] Comment on above: Performed By: #### C BC ####[facility] Kadfgitxnh[address] [place], [place] [address]Dr. Tadeo Smyth PLT 331 103/ul Normal 150-450 The [facility] Comment on above: Performed By: #### C BC ####[facility] Q[address]pn[address] [place], [place] [address]Dr. Tadeo Smyth RBC 4.01 106/ul Critically low 4.20-5.40 The [facility] Comment on above: Performed By: #### C BC ####[facility] [address]vls[address] [place], [place] [address]Dr. Tadeo Smyth WBC 13.7 103/ul Critically high 4.0-11.0 The [facility] Comment on above: Performed By: #### C BC ####[facility] [address]qi[address]dujr[address] [place] [id number]. Tadeo Smyth Covid-19 PCR (CVDTBH)on 01-05 SARS-CoV-2 (COVID-19) RNA CHEN+probe Ql (Unsp spec) Not detected Normal NOT DETECTED The [facility] Comment on above: Result Comment: When diagnostic [...] for this test is supported by the [employer] of Health and Human Service's declaration that [...] be used). Performed By: #### C VDTBH ####[facility] [address]ff[address]dwimks[address] [place] [address]Dr. Tadeo Smyth LIPASEon 02-02-2022 Lipase [Catalytic activity/Vol] 33.0 U/L Critically low 73.0-393.0 The [facility] Comment on above: Performed By: #### C MP, VIJI, LIPA ####[facility] [address]wxpjize[address] [place] [id number]. Tadeo Smyth MONOon 02-02-2022 Monocytes (Bld) [#/Vol] Negative Normal NEGATIVE The [facility] Comment on above: Performed By: #### M JESSICA ####[facility] [address]puocczmw[address] [place] [address]Dr. Tadeo Smyth PROF 14(COMP METB)on 022 Albumin [Mass/Vol] 3.1 g/dL Critically low 3.4-5.0 Th e [facility] Comment on above: Performed By: #### C MP, VIJI, LIPA ####[facility] Eblooqkavx[address] [place] [address]Dr. Tadeo Haja Albumin/Globulin [Mass ratio] 0.9 {ratio} Normal [facility] Comment on above: Performed By: #### C MP, VIJI, LIPA ####[facility] Nnqneqepja[address] [place] [address]Dr. Tadeo Haja ALP [Catalytic activity/Vol] 131 U/L Critically high 46-116 [facility] Comment on above: Performed By: #### C MP, VIJI, LIPA ####[facility] Sdxcjbtmfz[address] [place], [place] [address]Dr. Margotnicole Smyth ALT [Catalytic activity/Vol] 25 U/L Normal 14-59 [facility] Comment on above: Performed By: #### C MP, VIJI, LIPA ####[facility] Kimvfngzgw[address] [place], [place] [address]Dr. Tadeo Smyth Anion gap [Moles/Vol] 10.0 mmol/L Normal [facility] Comment on above: Performed By: #### C MP, VIJI, LIPA ####[facility] Qntosqjekn[address] [place], [place] [address]Dr. Margotnicole Smyth AST [Catalytic activity/Vol] 19 U/L Normal 15-37 [facility] Comment on above: Performed By: #### C MP, VIJI, LIPA ####[facility] [address]uawnphvdv[address] [place], [place] [address]Dr. Tadeo Smyth Bilirubin [Mass/Vol] 0.6 mg/dL Normal 0.2-1.0 [facility] Comment on above: Performed By: #### C MP, VIJI, LIPA ####[facility] Xxvprddmlu[address] [place], [place] [address]Dr. Tadeo Smyth Calcium [Mass/Vol] 8.2 mg/dL Critically low 8.5-10.1 [facility] Comment on above: Performed By: #### C MP, VIJI, LIPA ####[facility] Kkixajgtij[address] [place], [place] [address]Dr. Tadeo Smyth Chloride [Moles/Vol] 106 mmol/L Normal 98-107 The [facility] Comment on above: Performed By: #### C VIJI GARCIA LIPA ####[facility] [address]qnb[address]qgi[address] [place] [address]Dr. Tadeo Smyth CO2 [Moles/Vol] 25.5 mmol/L Normal 21.0-32.0 The [facility] Comment on above: Performed By: #### C VIJI GARCIA LIPA ####[facility] [address]ycvl[address] [place] [address]Dr. Tadeo Smyth Creatinine [Mass/Vol] 0.78 mg/dL Normal 0.55-1.02 The [facility] Comment on above: Performed By: #### C VIJI GARCIA LIPA ####[facility] [address]em[address] [place] [address]Dr. Tadeo Smyth EGFR-AF LUXEMBOURGER >60 Normal >=60 The [facility] Comment on above: Performed By: #### C VIJI GARCIA LIPA ####[facility] [address]tkernypkn[address] [place] [address]Dr. Tadeo Smyth EGFR-NON AF LUXEMBOURGER >60 Normal >=60 [facility] Comment on above: Performed By: #### C VIJI GARCIA LIPA ####[facility] [address]pucxueaio[address] [place] [address]Dr. Tadeo Smyth Globulin (S) [Mass/Vol] 3.6 g/dL Normal The [facility] Comment on above: Performed By: #### C VIJI GARCIA LIPA ####[facility] [address]fwbvchjg[address] [place] [address]Dr. Tadeo Smyth Glucose [Mass/Vol] 110 mg/dL Critically high 74-[address] [facility] Comment on above: Performed By: #### C VIJI GARCIA LIPA ####[facility] Iiqwfstopg[address] [place] [address]Dr. Tadeo Smyth Potassium [Moles/Vol] 3.5 mmol/L Normal 3.5-5.1 The [facility] Comment on above: Performed By: #### C VIJI GARCIA LIPA ####[facility] [address]qvpucmb[address] [place] [address]Dr. Tadeo Smyth Protein [Mass/Vol] 6.7 g/dL Normal 6.4-8.2 The [facility] Comment on above: Performed By: #### C MP, VIJI, LIPA ####[facility] [address]swss[address]dzwn[address] [place] [address]Dr. Tadeo Smyth Sodium [Moles/Vol] 138 mmol/L Normal 136-145 The [facility] Comment on above: Performed By: #### C MP, VIJI, LIPA ####[facility] [address]ypqoiqive[address] [place] [address]Dr. Tadeo Smyth Urea nitrogen [Mass/Vol] 11.0 mg/dL Normal 7.0-18.0 The [facility] Comment on above: Performed By: #### C MP, VIJI, LIPA ####[facility] [address]klguotm[address] [place] [address]Dr. Tadeo Smyth Urea nitrogen/Creatinine [Mass ratio] 14.1 mg/mg Normal [facility] Comment on above: Performed By: #### C MP, VIJI, LIPA ####[facility] [address]pyb[address] [place] [address]Dr. Tadeo Smyth STREPT SCREENon 02-02-2022 STREP SCREEN A Negative Normal NEGATIVE [facility] Comment on above: Performed By: #### G RASTCX, SSCRN ####[facility] [address]hibibe[address] [place] [address]Dr. Tadeo Smyth BASIC METABOLIC PANELon 08-05 Calcium [Mass/Vol] 8.4 mg/dL Low 8.6-10.3 The [facility] Comment on above: Order Comment: No: D o not add to previous draw Performed By: #### 3 7999, [address] #### [facility] [address] [place] [address], [facility] Chloride [Moles/Vol] 108 mmol/L High 98-107 [facility] [facility] Comment on [facility]: Order Comment: No: D o not add to previous draw Performed By: #### 3 9054, 07934 #### [facility] [address] [place] [address], [place] CO2 [Moles/Vol] 26 mmol/L Normal 21-31 [facility] Comment on above: Order Comment: No: D o not add to previous draw Performed By: #### 3 078, 96784 #### [facility] [address] [place] [address], [place] Creatinine [Mass/Vol] 0.79 mg/dL Normal 0.60-1.20 [facility] Comment on above: Order Comment: No: D o not add to previous draw Performed By: #### 3 350, 16748 #### [facility] [address] [place] [address], [place] GFR/1.73 sq M predicted among blacks MDRD (S/P/Bld) [Vol rate/Area] mL/min/{1.73_m2} Normal >60 [facility] Comment on above: Order Comment: No: D o not add to previous draw Performed By: #### 3 607, 96561 #### [facility] [address] [place] [address], [place] GFR/1.73 sq M predicted among non-blacks MDRD (S/P/Bld) [Vol rate/Area] mL/min/{1.73_m2} Normal >60 [facility] Comment on above: Order Comment: No: D o not add to previous draw Performed By: #### 3 050, 61608 #### [facility] [address] [place] [address], [place] Glucose [Mass/Vol] 98 mg/dL Normal 70-100 [facility] Comment on above: Order Comment: No: D o not add to previous draw Performed By: #### 3 939, 56076 #### [facility] [address] [place] [address], [place] Potassium [Moles/Vol] 3.5 mmol/L Normal 3.5-5.1 [facility] Comment on above: Order Comment: No: D o not add to previous draw Performed By: #### 3 6901, 57483 #### [facility] [address] [place] [address], [facility] Sodium [Moles/Vol] 139 mmol/L Normal 136-145 [facility] Comment on above: Order Comment: No: D o not add to previous draw Performed By: #### 3 6901, 52826 #### [facility] [address] [place] [address], [facility] Urea nitrogen [Mass/Vol] 11 mg/dL Normal 7-25 [facility] Comment on above: Order Comment: No: D o not add to previous draw Performed By: #### 3 6901, 89228 #### [facility] [address] [facility] [address], [facility] BLOOD STOOL GUAIACon 019 BLD STOOL GUAIAC Negative Normal NEGATIVE [facility] Comment on above: Order Comment: No: D o not add to previous draw Performed By: #### 3 6901, 47078 #### [facility] [address] [facility] [place] [address], [facility] MAGNESIUM BLOODon 08-16-2019 Magnesium [Mass/Vol] 2.0 mg/dL Normal 1.9-2.7 [facility] Comment on above: Order Comment: No: D o not add to previous draw Performed By: #### 3 6901, 61413 #### [facility] [address] [facility] [address] *URINE CULTUREon 08-15-2019 Bacteria identified Cx Nom (U) Clinical Report: (D) Specimen/Source: URINE/MIDSTREAM Collected: 08/15/2019 20:40 Status: Final Last Updated: 08/17/2019 08:05 ISO (Final) Escherichia coli >100,000 Cfu/Ml ISOLATE: Escherichia coli RHONDA (mcg/ml) AMP./SULBAC (AMS) 16/8 Intermediate AMPICILLIN (AM) >16 Resistant AZTREONAM (AZM) <=1 Susceptible CEFAZOLIN (CZ) 2 Susceptible CEFTRIAXONE (PUBLIC HEALTH NURSE) <=0.5 Susceptible CIPROFLOXACIN (CIP) >2 Resistant ESBL (-/+) (ESBL) Negative GENTAMICIN (GM) <=1 Susceptible NITROFURANTOIN (FT) <=16 Susceptible PIP/TAZO (TZP) 4/4 Susceptible TOBRAMYCIN (TOB) 1 Susceptible TRIMETH/SULFA (SXT) >2/38 Resistant Normal [facility] Comment on above: Performed By: #### 3 6901, 77351 #### [facility] [address] BASIC METABOLIC PANELon 12- Calcium [Mass/Vol] 8.8 mg/dL Normal 8.6-10.3 [facility] Comment on above: Order Comment: No: D o not add to previous draw Performed By: #### 0 0071, 11174, 68987 #### [facility] [address] [place] [address], [facility] Chloride [Moles/Vol] 107 mmol/L Normal 98-107 [facility] Comment on above: Order Comment: No: D o not add to previous draw Performed By: #### 0 0071, 78754, 10956 #### [facility] [address] [place] [address], [facility] CO2 [Moles/Vol] 27 mmol/L Normal 21-31 [facility] Comment on above: Order Comment: No: D o not add to previous draw Performed By: #### 0 0071, 88193, 49220 #### [facility] [address] [place] [address], [facility] Creatinine [Mass/Vol] 0.99 mg/dL Normal 0.60-1.20 [facility] Comment on above: Order Comment: No: D o not add to previous draw Performed By: #### 0 0071, 53666, 93160 #### [facility] [address] [place] [address], [place] GFR/1.73 sq M predicted among blacks MDRD (S/P/Bld) [Vol rate/Area] mL/min/{1.73_m2} Normal >60 [facility] Comment on above: Order Comment: No: D o not add to previous draw Performed By: #### 0 0071, 81950, 99099 #### [facility] [address] [place] [address], [place] GFR/1.73 sq M predicted among non-blacks MDRD (S/P/Bld) [Vol rate/Area] 59 ml/min/1.73sq m Abnormal >60 [facility] Comment on above: Order Comment: No: D o not add to previous draw Performed By: #### 0 0071, 92369, 13617 #### [facility] [address] [place] [address], [place] Glucose [Mass/Vol] 100 mg/dL Normal 70-100 [facility] Comment on above: Order Comment: No: D o not add to previous draw Performed By: #### 0 0071, 11489, 48210 #### [facility] [address] [place] [address], [place] Potassium [Moles/Vol] 3.6 mmol/L Normal 3.5-5.1 [facility] Comment on above: Order Comment: No: D o not add to previous draw Performed By: #### 0 0071, 81777, 22214 #### [facility] [address] [place] [address], [place] Sodium [Moles/Vol] 140 mmol/L Normal 136-145 [facility] Comment on above: Order Comment: No: D o not add to previous draw Performed By: #### 0 0071, 14292, 34136 #### [facility] [address] [place] [address], [place] Urea nitrogen [Mass/Vol] 9 mg/dL Normal 7-25 [facility] Comment on above: Order Comment: No: D o not add to previous draw Performed By: #### 0 0071, 86294, 00854 #### [facility] [address] [place] [address], [facility] LACTATE BLOODon 08-15-2019 Lactate [Moles/Vol] 0.8 mmol/L Normal 0.5-2.2 [facility] Comment on above: Order Comment: Yes: Add to Previous draw if able Performed By: #### 1 0054 #### [facility] [address] [place] [address], [facility] LMWH HEPARIN ASSAYon 019 LOW MOLECULAR WEIGHT HEPARIN 0.32 IU/mL Low 0.60-1.20 [facility] Comment on above: Order Comment: (draw [...] and LMWH. Performed By: #### 3 6901, 62813 #### [facility] [address] [place] [address], [facility] MAGNESIUM BLOODon 08-15-2019 Magnesium [Mass/Vol] 1.7 mg/dL Low 1.9-2.7 [facility] Comment on above: Order Comment: No: D o not add to previous draw Performed By: #### 0 0071, 44227, 73273 #### [facility] [address] [place] [address], [facility] PHOSPHORUS BLOODon 9 Phosphate [Mass/Vol] 4.1 mg/dL Normal 2.5-5.0 [facility] Comment on above: Order Comment: No: D o not add to previous draw Performed By: #### 0 0071, 63734, 52021 #### [facility] [address] [place] [address], [facility] UGI WITH SMALL BOWELon 08-15 UGI WITH SMALL BOWEL [facility] Department of Radiology [address] [place] [id number] Patient Name: CONSTANTINO CARDOSO : 1970 Sex: F Age: Race: White Pt. Location: [id number] Patient Status: O Ordered Date: 08/15/2019 10:45:00 [...] ischemia. Electronically signed by:Orestes Condon. Transcribed by: [email or web address], User Resident: Electronically Signed by: ORESTES CONDON @ 08/15/2019 04:13 PM Normal [facility] Comment on above: Order Comment: R/O O bstruction URINALYSIS REFLEXon 08-15-20 19 Appearance (U) SL CLOUDY Abnormal CLEAR [facility] Comment on above: Order Comment: No: D o not add to previous drawCriteria for reflexing a culture was met. Urine Culture and sensitivitywill be performed. Performed By: #### 3 1361, 41904 #### [facility] [address] [facility]. [address] Bilirubin [Mass/Vol] Negative Normal NEGATIVE [facility] Comment on above: Order Comment: No: D o not add to previous drawCriteria for reflexing a culture was met. Urine Culture and sensitivitywill be performed. Performed By: #### 3 4711, 26000 #### [facility] [address] [place] [address], [facility] BLOOD SMALL Abnormal NEGATIVE [facility] Comment on above: Order Comment: No: D o not add to previous drawCriteria for reflexing a culture was met. Urine Culture and sensitivitywill be performed. Performed By: #### 3 1651, 95421 #### [facility] [address] [place] [address], [facility] Color (U) YELLOW Normal YELLOW [facility] Comment on above: Order Comment: No: D o not add to previous drawCriteria for reflexing a culture was met. Urine Culture and sensitivitywill be performed. Performed By: #### 3 9251, 52407 #### [facility] [address] [place] [address], [facility] EPIS OCC Normal FEW,OCC,NON E SEEN [facility] Comment on above: Order Comment: No: D o not add to previous drawCriteria for reflexing a culture was met. Urine Culture and sensitivitywill be performed. Performed By: #### 3 6091, 64155 #### [facility] [address] [facility] [address], [facility] Glucose [Mass/Vol] Negative Normal NEGATIVE [facility] Comment on above: Order Comment: No: D o not add to previous drawCriteria for reflexing a culture was met. Urine Culture and sensitivitywill be performed. Performed By: #### 3 5771, 43989 #### [facility] [address] [facility] [address], [facility] HYALINE CASTS 6-10 Abnormal NONE SEEN [facility] Comment on above: Order Comment: No: D o not add to previous drawCriteria for reflexing a culture was met. Urine Culture and sensitivitywill be performed. Performed By: #### 3 9271, 93678 #### [facility] [address] [place] [address], [facility] KETONE Negative Normal NEGATIVE [facility] Comment on above: Order Comment: No: D o not add to previous drawCriteria for reflexing a culture was met. Urine Culture and sensitivitywill be performed. Performed By: #### 3 6901, 08203 #### [facility] [address] [place] [address], [place] LEUK JONN MODERATE Abnormal NEGATIVE [facility] Comment on above: Order Comment: No: D o not add to previous drawCriteria for reflexing a culture was met. Urine Culture and sensitivitywill be performed. Performed By: #### 3 9191, 42923 #### [facility] [address] [place] [address], [facility] MUCUS THREADS FEW Abnormal NONE SEEN [facility] Comment on above: Order Comment: No: D o not add to previous drawCriteria for reflexing a culture was met. Urine Culture and sensitivitywill be performed. Performed By: #### 3 6901, 07351 #### [facility] [address] [place] [address], [place] Nitrite Ql (U) Negative Normal NEGATIVE [facility] Comment on above: Order Comment: No: D o not add to previous drawCriteria for reflexing a culture was met. Urine Culture and sensitivitywill be performed. Performed By: #### 3 3391, 30104 #### [facility] [address] [place] [address], [facility] pH (Bld) 5.0 Normal 5.0-8.0 [facility] Comment on above: Order Comment: No: D o not add to previous drawCriteria for reflexing a culture was met. Urine Culture and sensitivitywill be performed. Performed By: #### 3 5321, 36380 #### [facility] [address] [place] [address], [place] Protein (U) [Mass/Vol] Negative Normal NEGATIVE [facility] Comment on above: Order Comment: No: D o not add to previous drawCriteria for reflexing a culture was met. Urine Culture and sensitivitywill be performed. Performed By: #### 3 6901, 78416 #### [facility] [address] [place] [address], [place] RBC (U) [#/Vol] 6-10 Abnormal NONE SEEN [facility] Comment on above: Order Comment: No: D o not add to previous drawCriteria for reflexing a culture was met. Urine Culture and sensitivitywill be performed. Performed By: #### 3 6901, 07281 #### [facility] [address] SPEC GRAV 1.025 High 1.015-1.020 [facility] Comment on above: Order Comment: No: D o not add to previous drawCriteria for reflexing a culture was met. Urine Culture and sensitivitywill be performed. Performed By: #### 3 6901, 12581 #### [facility] [address] WBC UA 51-100 Abnormal NONE SEEN [facility] Comment on above: Order Comment: No: D o not add to previous drawCriteria for reflexing a culture was met. Urine Culture and sensitivitywill be performed. Performed By: #### 3 6901, 49230 #### [facility] [address] CBC COMPLETE BLOOD COUNTon 10-15-2018 Erythrocyte distribution width (RBC) [Ratio] 12.7 % Normal 11.5-15.0 [facility] Comment on above: Order Comment: No: D o not add to previous draw Performed By: #### 5 0608 #### [facility] [address] [facility] [address] Hematocrit (Bld) [Volume fraction] 31.2 % Low 36.0-45.0 [facility] Comment on above: Order Comment: No: D o not add to previous draw Performed By: #### 5 0608 #### [facility] [address] [place] [address], [facility] Hemoglobin (Bld) [Mass/Vol] 9.8 g/dL Low 12.0-15.0 [facility] Comment on above: Order Comment: No: D o not add to previous draw Performed By: #### 5 0608 #### [facility] [address] [place] [address], [facility] MCH (RBC) [Entitic mass] 29.1 pg Normal 27.0-33.0 [facility] Comment on above: Order Comment: No: D o not add to previous draw Performed By: #### 5 0608 #### [facility] [address] [facility]. [address] MCHC (RBC) [Mass/Vol] 31.4 g/dL Low 32.0-35.0 [facility] Comment on above: Order Comment: No: D o not add to previous draw Performed By: #### 5 0608 #### [facility] [address] MCV (RBC) [Entitic vol] 92.6 fL Normal 82.0-98.0 [facility] Comment on above: Order Comment: No: D o not add to previous draw Performed By: #### 5 0608 #### [facility] [address] Nucleated RBC/100 WBC (Bld) [Ratio] 0 % Normal 0-0 [facility] Comment on above: Order Comment: No: D o not add to previous draw Performed By: #### 5 0608 #### [facility] [address] [place] [address], [facility] PLAT CNT 340 10*3/uL Normal 150-400 [facility] Comment on above: Order Comment: No: D o not add to previous draw Performed By: #### 5 0608 #### [facility] [address] [facility] [place] [address], [facility] RBC (Bld) [#/Vol] 3.37 10*6/uL Low 3.80-5.00 [facility] Comment on above: Order Comment: No: D o not add to previous draw Performed By: #### 5 0608 #### [facility] [address] [place] [address], [facility] WBC (Bld) [#/Vol] 6.04 10*3/uL Normal 4.00-10.60 [facility] Comment on above: Order Comment: No: D o not add to previous draw Performed By: #### 5 0608 #### [facility] [address] PROTHROMBIN TIMEon 9 INR Coag (PPP) [Relative time] 1.09 {INR} Normal 0.91-1.16 [facility] Comment on above: Order Comment: No: [...] 1995;108:[id number]. Performed By: #### 5 6101 #### [facility] [address] PT Coag (PPP) [Time] 14.1 s Normal 12.3-14.8 [facility] Comment on above: Order Comment: No: D o not add to previous draw Result Comment: ALL RESULTS MUST BE INTERPRETED WITH RESPECT TO BLOOD DRAWING ARTIFACT OR DILUTION ERROR OF ANTICOAGULANT AT THE TIME OF SAMPLING. Performed By: #### 5 6101 #### [facility] [address] [place] [address], [facility] US LIVERon 08-14-2019 US LIVER [facility] Department of Radiology [address] [place] [id number] Patient Name: CONSTANTINO CARDOSO : 1970 Sex: F Age: Race: White Pt. Location: [address] [place] [address] Patient Status: O Ordered Date: 08/13/2019 8:30:00 [...] cholecystectomy. Electronically signed by:Orestes Condon. Transcribed by: [email or web address], User Resident: Electronically Signed by: ORESTES CONDON @ 08/14/2019 02:09 PM Normal [facility] Comment on above: Order Comment: R/O S tones BASIC METABOLIC PANELon 12-0 Calcium [Mass/Vol] 9.4 mg/dL Normal 8.6-10.3 [facility] Comment on above: Order Comment: No: D o not add to previous draw Performed By: #### 3 064, 38317 #### [facility] [address] [place] [address], [place] Chloride [Moles/Vol] 105 mmol/L Normal 98-107 [facility] Comment on above: Order Comment: No: D o not add to previous draw Performed By: #### 3 921, 81944 #### [facility] [address] [place] [address], [place] CO2 [Moles/Vol] 26 mmol/L Normal 21-31 [facility] Comment on above: Order Comment: No: D o not add to previous draw Performed By: #### 3 660, 18986 #### [facility] [address] [place] [address], [place] Creatinine [Mass/Vol] 1.03 mg/dL Normal 0.60-1.20 [facility] Comment on above: Order Comment: No: D o not add to previous draw Performed By: #### 3 209, 32643 #### [facility] [address] [place] [address], [place] GFR/1.73 sq M predicted among blacks MDRD (S/P/Bld) [Vol rate/Area] mL/min/{1.73_m2} Normal >60 [facility] Comment on above: Order Comment: No: D o not add to previous draw Performed By: #### 3 275, 55018 #### [facility] [address] [place] [address], [place] GFR/1.73 sq M predicted among non-blacks MDRD (S/P/Bld) [Vol rate/Area] 57 ml/min/1.73sq m Abnormal >60 [facility] Comment on above: Order Comment: No: D o not add to previous draw Performed By: #### 3 376, 75446 #### [facility] [address] [place] [address], [facility] Glucose [Mass/Vol] 96 mg/dL Normal 70-100 [facility] Comment on above: Order Comment: No: D o not add to previous draw Performed By: #### 3 875, 43145 #### [facility] [address] [place] [address], [facility] Potassium [Moles/Vol] 4.1 mmol/L Normal 3.5-5.1 [facility] Comment on above: Order Comment: No: D o not add to previous draw Performed By: #### 3 918, 59872 #### [facility] [address] [place] [id number], [facility] Sodium [Moles/Vol] 138 mmol/L Normal 136-145 [facility] Comment on above: Order Comment: No: D o not add to previous draw Performed By: #### 3 805, 36048 #### [facility] [address] [facility] [address], [facility] Urea nitrogen [Mass/Vol] 16 mg/dL Normal 7-25 [facility] Comment on above: Order Comment: No: D o not add to previous draw Performed By: #### 3 976, 63485 #### [facility] [address] [facility] [place] [address], [facility] CBC W/DIFFon 08-13-2019 ABS BASOPHILS 0.0 10*3/uL Normal 0.0-0.2 [facility] Comment on above: Order Comment: No: D o not add to previous draw Performed By: #### 5 0103 #### [facility] [address] [place] [address], [facility] ABS IMM GRANS 0.0 10*3/uL Normal 0.0-0.2 [facility] Comment on above: Order Comment: No: D o not add to previous draw Performed By: #### 5 0103 #### [facility] [address] [place] [address], [facility] ABS NEUTROPHILS 4.0 10*3/uL Normal 1.6-7.6 [facility] Comment on above: Order Comment: No: D o not add to previous draw Performed By: #### 5 0103 #### [facility] [address] [place] [address], [facility] Basophils/100 WBC (Bld) 0.5 % Normal 0.0-1.0 [facility] Comment on above: Order Comment: No: D o not add to previous draw Performed By: #### 5 0103 #### [facility] [address] [place] [address], [facility] Eosinophils (Bld) [#/Vol] 0.2 10*3/uL Normal 0.0-0.5 [facility] Comment on above: Order Comment: No: D o not add to previous draw Performed By: #### 5 0103 #### [facility] [address] [place] [address], [facility] Eosinophils/100 WBC (Bld) 3.3 % Normal 0.0-6.0 [facility] Comment on above: Order Comment: No: D o not add to previous draw Performed By: #### 5 3 #### [facility] [address] [place] [id number], [facility] Erythrocyte distribution width (RBC) [Ratio] 12.7 % Normal 11.5-15.0 [facility] Comment on above: Order Comment: No: D o not add to previous draw Performed By: #### 5 0103 #### [facility] [address] [place] [id number], [facility] Hematocrit (Bld) [Volume fraction] 33.4 % Low 36.0-45.0 [facility] Comment on above: Order Comment: No: D o not add to previous draw Performed By: #### 5 0103 #### [facility] [address] [facility] [place] [address], [facility] Hemoglobin (Bld) [Mass/Vol] 10.5 g/dL Low 12.0-15.0 [facility] Comment on above: Order Comment: No: D o not add to previous draw Performed By: #### 5 0103 #### [facility] [address] [facility] [place] [address], [facility] IMMATURE GRANS 0.2 % Normal 0.0-1.0 [facility] Comment on above: Order Comment: No: D o not add to previous draw Performed By: #### 5 3 #### [facility] [address] [place] [address], [facility] Lymphocytes (Bld) [#/Vol] 1.8 10*3/uL Normal 1.2-4.0 [facility] Comment on above: Order Comment: No: D o not add to previous draw Performed By: #### 5 3 #### [facility] [address] [place] [address], [facility] Lymphocytes/100 WBC (Bld) 28.2 % Normal 20.0-45.0 [facility] Comment on above: Order Comment: No: D o not add to previous draw Performed By: #### 5 3 #### [facility] [address] [place] [address], [facility] MCH (RBC) [Entitic mass] 28.9 pg Normal 27.0-33.0 [facility] Comment on above: Order Comment: No: D o not add to previous draw Performed By: #### 5 0103 #### [facility] [address] [place] [address], [facility] [facility] MCHC (RBC) [Mass/Vol] 31.4 g/dL Low 32.0-35.0 [facility] Comment on above: Order Comment: No: D o not add to previous draw Performed By: #### 5 3 #### [facility] [address] [place] [address], [facility] MCV (RBC) [Entitic vol] 92.0 fL Normal 82.0-98.0 [facility] Comment on above: Order Comment: No: D o not add to previous draw Performed By: #### 5 0103 #### [facility] [address] [place] [address], [facility] Monocytes (Bld) [#/Vol] 0.4 10*3/uL Normal 0.1-1.0 [facility] Comment on above: Order Comment: No: D o not add to previous draw Performed By: #### 5 0103 #### [facility] [address] [place] [id number], [facility] MONOS 6.2 % Normal 5.0-12.0 [facility] Comment on above: Order Comment: No: D o not add to previous draw Performed By: #### 5 0103 #### [facility] [address] [place] [address], [facility] Neutrophils/100 WBC (Bld) 61.6 % Normal 40.0-72.0 [facility] Comment on above: Order Comment: No: D o not add to previous draw Performed By: #### 5 0103 #### [facility] [address] [place] [id number], [facility] Nucleated RBC/100 WBC (Bld) [Ratio] 0 % Normal 0-0 [facility] Comment on above: Order Comment: No: D o not add to previous draw Performed By: #### 5 0103 #### [facility] [address] [place] [address], [place] PLAT CNT 382 10*3/uL Normal 150-400 [facility] Comment on above: Order Comment: No: D o not add to previous draw Performed By: #### 5 0103 #### [facility] [address] RBC (Bld) [#/Vol] 3.63 10*6/uL Low 3.80-5.00 [facility] Comment on above: Order Comment: No: D o not add to previous draw Performed By: #### 5 0103 #### [facility] [address] [place] [id number], [facility] WBC (Bld) [#/Vol] 6.45 10*3/uL Normal 4.00-10.60 [facility] Comment on above: Order Comment: No: D o not add to previous draw Performed By: #### 5 0103 #### [facility] [address] [place] [address], [facility] LIPASE BLOODon 08-13-2019 Lipase [Catalytic activity/Vol] 13 Units/L Normal 11-82 [facility] Comment on above: Performed By: #### 3 [id number], [id number] #### [facility] [address] [facility] [address] Vital Signs Date Time Vital Sign Value Performing Clinician Facility 02-16-2024 09:03-0400 Blood Pressure Location [employer] [facility] 02-16-2024 09:03-0400 Body temperature 97.7 [degF] [employer] [facility] 02-16-2024 09:03-0400 Diastolic blood pressure 84 mm[Hg] [employer] [facility] 02-16-2024 09:03-0400 Heart rate 78 /min [employer] [facility] 02-16-2024 09:03-0400 Systolic blood pressure 128 mm[Hg] Appreciation [employer] [facility] 07-22-2023 13:19-0500 Body height 170.[address] Work Phone: [facility] 07-22-2023 13:19-0500 Body weight 83.[address] Work Phone: [facility] 07-14-2023 11:40-0500 Diastolic blood pressure 95 mm[Hg] Marques Bradley MD Work Phone: [facility] 07-14-2023 11:40-0500 Heart rate 56 /min Marques Bradley MD Work Phone: [facility] 07-14-2023 11:40-0500 Respiratory rate 16 /min Marques Bradley MD Work Phone: [facility] 07-14-2023 11:40-0500 SaO2% (BldA) [Mass fraction] 97 % Marques Bradley MD Work Phone: [facility] 07-14-2023 11:40-0500 Systolic blood pressure 158 mm[Hg] Marques Bradley MD Work Phone: [facility] 07-14-2023 11:10-0500 Body temperature 97.2 [degF] Marques Bradley MD Work Phone: [facility] 07-14-2023 08:34-0500 Body height 170.2 cm Marques Bradley MD Work Phone: [facility] 07-14-2023 08:34-0500 Body weight 88 kg Marques Bradley MD Work Phone: [facility] 04-21-2023 09:30-0400 Body height 170.18 cm Renny Gan Other [employer] Other 04-21-2023 09:30-0400 Body mass index (BMI) [Ratio] 31.21 kg/m2 Renny Gan Other [employer] Other 04-21-2023 09:30-0400 Body weight 90.4 kg Renny Gan Other [facility] [employer] Other 04-21-2023 09:30-0400 Diastolic blood pressure 78 mm[Hg] Renny Gan Other [facility] [employer] Other 04-21-2023 09:30-0400 Systolic blood pressure 130 mm[Hg] Renny Gan Other [facility] [employer] Other 03-23-2023 07:33-0400 Diastolic blood pressure 80 mm[Hg] [employer] Judi Mikael Work Phone: [facility] 03-23-2023 07:33-0400 Heart rate 81 /min [employer] Judi Mikael Work Phone: [facility] 03-23-2023 07:33-0400 Respiratory rate 14 /min [employer] Judi Mikael Work Phone: [facility] 03-23-2023 07:33-0400 SaO2% (BldA) [Mass fraction] 95 % [employer] Judi Mikael Work Phone: [facility] 03-23-2023 07:33-0400 Systolic blood pressure 171 mm[Hg] [employer] Judi Mikael Work Phone: [facility] 03-23-2023 06:20-0400 Body height 170.18 cm [employer] Judi Mikael Work Phone: [facility] 03-23-2023 06:20-0400 Body temperature 97.4 [degF] [employer] Judi Mikael Work Phone: [facility] 03-23-2023 06:20-0400 Body weight 90 kg [employer] Judi Mikael Work Phone: [facility] 02-19-2023 00:53-0400 Body temperature 96.98 [degF] Zabrina Patton [facility] 02-19-2023 00:53-0400 Diastolic blood pressure 99 mm[Hg] Kaylinn Dokken [facility] 02-19-2023 00:53-0400 Heart rate 75 /min Kaylinn Dokken [facility] 02-19-2023 00:53-0400 Respiratory rate 16 /min Franklinylinn Dokken [facility] 02-19-2023 00:53-0400 SaO2% (BldA) [Mass fraction] 98 % Khrisinn Dokken [facility] 02-19-2023 00:53-0400 Systolic blood pressure 153 mm[Hg] Khrisinn Dokken [facility] 02-15-2023 10:33-0400 Diastolic blood pressure 89 mm[Hg] [employer] Judi Mikael Work Phone: [facility] 02-15-2023 10:33-0400 SaO2% (BldA) [Mass fraction] 100 % [employer] Judi Mikael Work Phone: [facility] 02-15-2023 10:33-0400 Systolic blood pressure 149 mm[Hg] [employer] Judi Mikael Work Phone: [facility] 02-15-2023 10:00-0400 Heart rate 83 /min [employer] Judi Mikael Work Phone: [facility] 02-15-2023 10:00-0400 Respiratory rate 16 /min [employer] Judi Mikael Work Phone: [facility] 02-15-2023 08:06-0400 Body height 170.18 cm [employer] Judi Mikael Work Phone: [facility] 02-15-2023 08:06-0400 Body temperature 97.6 [degF] [employer] Judi Mikael Work Phone: [facility] 02-15-2023 08:06-0400 Body weight 89.2 kg [employer] Judijose manuel Ugaldemer Work Phone: [facility] 10-26-2022 08:03-0500 Diastolic blood pressure 87 mm[Hg] [employer] Judi Mikael Work Phone: [facility] 10-26-2022 08:03-0500 Heart rate 70 /min [employer] Judi Mikael Work Phone: [facility] 10-26-2022 08:03-0500 Respiratory rate 18 /min [employer] Judi Mikael Work Phone: [facility] 10-26-2022 08:03-0500 SaO2% (BldA) [Mass fraction] 98 % [employer] Judi Ugaldemer Work Phone: [facility] 10-26-2022 08:03-0500 Systolic blood pressure 161 mm[Hg] [employer] Judijose manuel Ugaldemer Work Phone: [facility] 10-26-2022 06:17-0500 Body height 170.18 cm [employer] Judijose manuel Ugaldemer Work Phone: [facility] 10-26-2022 06:17-0500 Body temperature 97.2 [degF] [employer] Judi Ugaldemer Work Phone: [facility] 10-26-2022 06:17-0500 Body weight 88.9 kg [employer] Judijose manuel Ugaldemer Work Phone: [facility] 07-22-2022 14:34-0500 Diastolic blood pressure 83 mm[Hg] Ospina SALAM [facility] 07-22-2022 14:34-0500 Mean blood pressure 101 mm[Hg] Ospina SALAM [facility] 07-22-2022 14:34-0500 Systolic blood pressure 136 mm[Hg] Ospina SALAM [facility] 07-22-2022 14:30-0500 Blood Pressure Location Ospina SALAM [facility] 07-22-2022 14:30-0500 Diastolic blood pressure 89 mm[Hg] Ospina SALAM [facility] 07-22-2022 14:30-0500 Heart rate 62 /min Ospina SALAM [facility] 07-22-2022 14:30-0500 Respiratory rate 16 /min Ospina SALAM [facility] 07-22-2022 14:30-0500 SaO2% (BldA) [Mass fraction] 98 % Ospina SALAM [facility] 07-22-2022 14:30-0500 Systolic blood pressure 141 mm[Hg] Ospina SALAM [facility] 04-14-2022 14:50-0400 Blood Pressure Location Monique Marquez [facility] 04-14-2022 14:50-0400 Body temperature 97.16 [degF] Monique Reddymetz [facility] 04-14-2022 14:50-0400 Diastolic blood pressure 86 mm[Hg] Monique Reddymetz [facility] 04-14-2022 14:50-0400 Heart rate 72 /min Monique Reddymetz [facility] 04-14-2022 14:50-0400 SaO2% (BldA) [Mass fraction] 97 % Monique Marquez [facility] 04-14-2022 14:50-0400 Systolic blood pressure 131 mm[Hg] Monique Reddymetz [facility] 01-28-2022 13:36-0400 Blood Pressure Location Moniquejuan luis Marquez [facility] 01-28-2022 13:36-0400 Body temperature 97.52 [degF] Monique Marquez [facility] 01-28-2022 13:36-0400 Diastolic blood pressure 85 mm[Hg] Monique Marquez [facility] 01-28-2022 13:36-0400 Heart rate 73 /min Monique Marquez [facility] 01-28-2022 13:36-0400 SaO2% (BldA) [Mass fraction] 96 % Monique Marquez [facility] 01-28-2022 13:36-0400 Systolic blood pressure 122 mm[Hg] Monique Reddymetz [facility] 01-11-2022 10:15-0400 Blood Pressure Location Ospina SALAM [facility] 01-11-2022 10:15-0400 Diastolic blood pressure 106 mm[Hg] Ospina SALAM [facility] 01-11-2022 10:15-0400 Heart rate 70 /min Ospina SALAM [facility] 01-11-2022 10:15-0400 Respiratory rate 28 /min Ospina SALAM [facility] 01-11-2022 10:15-0400 SaO2% (BldA) [Mass fraction] 99 % Ospina SALAM [facility] 01-11-2022 10:15-0400 Systolic blood pressure 137 mm[Hg] Ospina SALAM [facility] 01-11-2022 10:05-0400 Blood Pressure Location Ospina SALAM [facility] 01-11-2022 10:05-0400 Diastolic blood pressure 74 mm[Hg] Ospina SALAM [facility] 01-11-2022 10:05-0400 Heart rate 67 /min Ospina SALAM [facility] 01-11-2022 10:05-0400 Respiratory rate 14 /min Ospina SALAM [facility] 01-11-2022 10:05-0400 SaO2% (BldA) [Mass fraction] 97 % Ospina SALAM [facility] 01-11-2022 10:05-0400 Systolic blood pressure 128 mm[Hg] Ospina SALAM [facility] 01-11-2022 10:00-0400 Blood Pressure Location Ospina SALAM [facility] 01-11-2022 10:00-0400 Diastolic blood pressure 79 mm[Hg] Ospina SALAM [facility] 01-11-2022 10:00-0400 Heart rate 66 /min Ospina SALAM [facility] 01-11-2022 10:00-0400 Respiratory rate 16 /min Ospina SALAM [facility] 01-11-2022 10:00-0400 SaO2% (BldA) [Mass fraction] 98 % Ospina SALAM [facility] 01-11-2022 10:00-0400 Systolic blood pressure 134 mm[Hg] Ospina SALAM [facility] 01-11-2022 09:50-0400 Body temperature 97.52 [degF] Ospina SALAM [facility] 01-11-2022 09:45-0400 Respiratory rate 15 /min Ospina SALAM [facility] 01-11-2022 09:18-0400 Body temperature 97.34 [degF] Ospina SALAM [facility] 01-11-2022 09:18-0400 Respiratory rate 20 /min [facility] SALAM [facility] Encounters Encounter Date Encounter Type Care Provider Facility Start: 05-10-2024 ambulatory Yolanda X Orzech Facilit y:[facility]LEN[facility] Start: 03-19-2024 End: 03-19-2024 ambulatory [facility] Start: 02-16-2024 End: 02-16-2024 ambulatory Yolanda X Orzech Facility:[facility] Start: 02-16-2024 End: 02-16-2024 Lab Drop off Yolanda X Orzech [facility] Start: 02-16-2024 End: 02-16-2024 ambulatory Yolanda X Orzech Facility:[facility] Start: 02-16-2024 End: 02-16-2024 Patient encounter procedure Yolanda X Orzech [facility] Start: 02-15-2024 End: 02-15-2024 ambulatory [facility] Start: 12-01-2023 ambulatory [facility] Start: 08-25-2023 End: 08-25-2023 ambulatory [facility] Facility:[facility] Start: 07-29-2023 Orders Only Evelyn Black RN Gen eral Surgery Comment on above: Gastroparesis (Prima ry Dx) Start: 07-22-2023 End: 07-22-2023 ambulatory MARQUES BRADLEY Facility:[facility] Start: 07-22-2023 Telephone encounter Evelyn Black RN General Surgery Start: 07-22-2023 End: 07-22-2023 Nutrition therapy Melissa Montalvo RD Work Phone: General Surgery Comment on above: Gastroparesis (Prima ry Dx); Malnutrition of moderate degree (HCC); Gastro-esophageal reflux disease without esophagitis; Overweight (BMI 25.0-29.9); Dietary counseling and surveillance Start: 07-22-2023 End: 07-22-2023 Telemedicine consultation with patient Melissa Montalvo RD Work Phone: [facility] Start: 07-14-2023 End: 07-14-2023 ambulatory MARQUES BRADLEY Facility:[facility] Start: 07-14-2023 End: 07-14-2023 Subsequent hospital visit by physician Marques Bradley MD Work Phone: Gastroenterology Comment on above: Dysphagia, unspecifi ed type [R13.10] Start: 07-13-2023 End: 07-13-2023 ambulatory MARQUES BRADLEY Facility:[facility] Start: 06-06-2023 End: 06-06-2023 ambulatory Samuel Estrella Facility:[facility] Start: 05-27-2023 Telephone encounter Evelyn Black RN General Surgery Comment on above: Results Start: 05-26-2023 End: 05-26-2023 ambulatory MARQUES BRADLEY Facility:[facility] Start: 05-25-2023 End: 05-25-2023 ambulatory [facility] Facility:[facility] Start: 05-25-2023 End: 05-25-2023 Nursing evaluation of patient and report Nurse Gi [facility] 2 Work Phone: Gastroenterology Comment on above: Nausea Start: 05-16-2023 Orders Only Evelyn Black RN Gen eral Surgery Comment on above: Nausea (Primary Dx); Dysphagia, unspecified type Start: 05-06-2023 End: 05-07-2023 ambulatory MARQUES BRADLEY Facility:[facility] Start: 05-02-2023 Telephone encounter Evelyn Black RN General Surgery Start: 04-26-2023 Telephone encounter Evelyn Black RN General Surgery Start: 04-21-2023 End: 04-21-2023 ambulatory Renny Gan Other [employer] Other Start: 04-21-2023 Office outpatient vi sit 15 minutes Renny Gan [facility] G[facility] Start: 04-18-2023 Telephone encounter Evelyn Black RN General Surgery 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 Start: 04-07-2023 Telephone encounter Guillermo Martinez DO Work Phone: Gastroenterology Comment on above: Appointment Start: 04-05-2023 End: 04-05-2023 ambulatory Imad Asaad Other [employer] Other Start: 04-05-2023 Telephone encounter Imad Asaad [facility] Gastroenterology Start: 03-29-2023 ambulatory Facility:U Start: 03-26-2023 ambulatory Facility:[id number] Start: 03-26-2023 End: 03-31-2023 Evaluation and management of inpatient Renny Gan Facility:[facility] Start: 03-26-2023 ambulatory Facility:[id number] Start: 03-24-2023 End: 03-24-2023 ambulatory Imad Asaad Other [employer] Other Start: 03-24-2023 Telephone encounter Imad Asaad [facility] Start: 03-23-2023 End: 03-23-2023 Emergency department patient visit Judi Joan Mikael Facility:[facility] Start: 03-23-2023 End: 03-23-2023 Emergency department patient visit [employer] Judi Youssef Work Phone: [facility] Work Phone: Start: 03-22-2023 End: 03-22-2023 ambulatory Imad Asaad Other [employer] Other Start: 03-22-2023 Telephone encounter Imad Asaad [facility] Start: 03-09-2023 End: 03-09-2023 ambulatory Imad Asaad Other [employer] Other Start: 03-09-2023 Telephone encounter Imad Asaad [facility] Start: 03-01-2023 End: 03-01-2023 ambulatory Imad Asaad Other [employer] Other Start: 03-01-2023 Telephone encounter Imad Asaad [facility] Start: 02-19-2023 End: 02-19-2023 Emergency department patient visit Zabrina Patton [facility] Start: 02-15-2023 End: 02-15-2023 Emergency department patient visit [employer] Judi Youssef Work Phone: [facility] Work Phone: Start: 11-30-2022 End: 12-01-2022 ambulatory JUDI MIKAEL Facility:[facility] Start: 11-27-2022 End: 11-28-2022 ambulatory JUDI YOUSSEF Facility:[facility] Start: 11-26-2022 End: 11-26-2022 ambulatory Imad Asaad Other [employer] Other Start: 11-26-2022 Telephone encounter Imad Asaad [facility] Start: 11-04-2022 End: 11-04-2022 ambulatory Judi Joan Mikael Facility:[facility] Start: 11-04-2022 End: 11-04-2022 Admission to same day surgery center [employer] Judi Youssef Work Phone: [facility] [place] Work Phone: Start: 11-04-2022 End: 11-04-2022 ambulatory [employer] Judi Youssef Work Phone: [facility] Work Phone: Start: 11-01-2022 End: 11-02-2022 ambulatory JUDIJOSE MANUEL UGALDEMER Facility:[facility] Start: 10-26-2022 End: 10-26-2022 Emergency department patient visit Judi Joan Mikael Facility:[facility] Start: 10-26-2022 End: 10-26-2022 Emergency department patient visit [employer] Judi Youssef Work Phone: [facility] Work Phone: Start: 09-21-2022 End: 09-21-2022 ambulatory JUDI YOUSSEF Facility:[facility] Start: 09-18-2022 End: 09-18-2022 ambulatory BALTAZAR GEORGES . Facility:[facility] Start: 09-14-2022 End: 09-14-2022 ambulatory EUN WILSON . Facility:[facility] Start: 09-07-2022 End: 09-07-2022 ambulatory Imad Asaad Other [employer] Other Start: 09-07-2022 Telephone encounter Imad Asaad [facility] [employer] [facility] Start: 09-06-2022 End: 09-07-2022 ambulatory JUDI YOUSSEF Facility:[facility] Start: 08-20-2022 End: 08-20-2022 ambulatory BALTAZAR GEORGES . Facility:[facility] Start: 08-17-2022 End: 08-18-2022 ambulatory JUDI YOUSSEF Facility:[facility] Start: 08-11-2022 End: 08-12-2022 ambulatory JUDI MIKAEL Facility:[facility] Start: 08-08-2022 End: 08-08-2022 ambulatory KATHRIN VANCE Facility:[facility] Start: 07-22-2022 End: 07-22-2022 Patient encounter procedure Ospinanoemi REAGAN [facility] Start: 07-21-2022 End: 07-21-[address] NORA WINN Facility:[facility] Start: 07-15-2022 ambulatory JUDI YOUSESF Facility: [facility] Start: 07-12-2022 Encounter for genera l adult medical examination without abnormal findings JUDI MIKAEL [facility] Start: 07-08-2022 End: 07-09-2022 ambulatory JUDI [...] 04-29-2022 End: 04-29-2022 Lab Drop off Anai LORNAGUSTAVO [facility] Start: 04-14-2022 End: 04-14-2022 Patient encounter procedure Monique Marquez [facility] Start: 03-27-2022 End: 03-30-2022 Evaluation and management of inpatient SHAIKH Juan Luis DAVIS Facility:[facility] Start: 03-01-2022 End: 03-01-2022 Patient encounter procedure Monique Marquez [facility] Start: 02-02-2022 End: 02-02-2022 ambulatory BALTAZAR GEORGES . Facility: Start: 01-28-2022 End: 01-28-2022 Patient encounter procedure Monique Marquez [facility] Start: 01-11-2022 End: 01-11-2022 Patient encounter procedure Anai REAGAN [facility] Start: 12-24-2021 End: 12-24-2021 Patient encounter procedure JHOANA MELGOZA [facility] Start: 08-13-2019 End: 08-16-2019 Evaluation and management of inpatient LEONA MORTENSEN Facility:[facility] Procedures Date Procedure Procedure Detail Performing Clinician Start: 07-14-2023 Esophagoscp rig transoral hypopharynx crv esoph Evelyn Black RN Start: 05-25-2023 Esophageal motility study w/interp&rpt Evelyn Black RN Start: 03-23-2023 Computed tomography of abdomen and pelvis with contrast [employer] Judi Mikael Work Phone: Start: 02-15-2023 Computed tomography of abdomen and pelvis with contrast [employer] Judi Mikael Work Phone: Start: 11-04-2022 CT of small intestine [employer] Judi Mikael Work Phone: Start: 10-26-2022 Computed tomography of abdomen and pelvis with contrast [employer] Judi Mikael Work Phone: Start: 01-11-2022 Esophagogastroduodenoscopy Anai MERARY Start: 05-13-2021 Esophagogastroduodenoscopy JHOANA Vázquez Start: 09-30-2020 Esophagogastroduodenoscopy JHOANA Vázquez Start: 03-13-2020 Colonoscopy JHOANA MELGOZA Start: 01-30-2020 Esophagogastroduodenoscopy JHOANA Vázquez Start: 08-15-2019 FLUOROSCOPY OF UPPER GI AND SMALL BOWEL USING OTHER CONTRAST ORESTES CONDON Start: 05-17-2019 Colonoscopy JHOANA MELGOZA Start: 05-17-2019 Esophagogastroduodenoscopy JHOANA Vázquez Start: 03-02-2019 Hernia surgical mesh (physical object) JHOANA MELGOZA Comment on above: Dr. Mortensen in [place]. Hernia repair JHOANA MELGOZA Hysterectomy JHOANA MELGOZA Plan of Treatment Date Care Activity Detail Author Start: 05-06-2023 Covid-19 Vaccine () Covid-19 Vaccine () [facility] Start: 05-06-2023 Influenza vaccination [facility] Start: 09-05-2022 DEPRESSION ASSESSMENT DEPRESSION ASS ESSMENT [facility] Start: 01-01-2022 COVID-19 VACCINE (4 - Pfizer series) COVID-19 VACCINE (4 - Pfizer series) [facility] Start: 2020 SHINGRIX VACCINE (1 of 2) SHINGRIX VACCINE (1 of 2) [facility] Start: 2015 COLOGUARD (FIT-DNA) COLOGUARD (FIT-D NA) [facility] Start: 2015 Colonoscopy COLONOSCOPY [facility] Start: 2015 COLORECTAL CANCER SCREENING COLORECTAL CANCER SCREENING [facility] Start: [address] COLONOGRAPHY [facility] Start: 2015 DIABETES SCREEN DIABETES SCREEN [facility] Start: 2015 Diabetes Screening Diabetes Screenin g [facility] Start: 2015 FECAL OCCULT BLOOD FECAL OCCULT BLOO D [facility] Start: 2015 Lipid 1996 panel - S cristine or Plasma Lipid Screening [facility] Start: 2015 LIPID SCREEN LIPID SCREEN [facility] Start: 2015 SIGMOIDOSCOPY SIGMOIDOSCOPY [facility] Start: 2010 Mammography [facility] Start: 2000 HPV TESTING HPV TESTING [facility] Start: 1991 PAP TESTING PAP TESTING [facility] Start: 1989 Urine microalbumin profile [facility] Start: 1988 HEPATITIS C SCREENING HEPATITIS C SC REENING [facility] Start: 1988 HIV SCREENING HIV SCREENING [facility] Start: 1970 COVID-19 VACCINE (#1) COVID-19 VACCI NE (#1) [facility] Start: 1970 HEPATITIS B (1 of 3 - 3-dose series) HEPATITIS B (1 of 3 - 3-dose series) [facility] Start: 1970 Hepatitis B Vaccine (1 of 3 - 3-dose series) Hepatitis B Vaccine (1 of 3 - 3-dose series) [facility] End: 07-29-2024 EGD - THERAPEUTIC, EUS, OR TUBE INTERVENTIONS EGD - THERAPEUTIC, EUS, OR TUBE INTERVENTIONS Endoscopy Routine Gastroparesis 1 Occurrences starting 07/29/2023 until 07/29/2024 [facility] Work Phone: Comment on above: 1 Occurrences starti ng 07/29/2023 until 07/29/2024 End: 05-16-2024 Esophageal motility study w/interp&rpt MANOMETRY ESOPHAGEAL Endoscopy Routine Nausea 1 Occurrences starting 05/16/2023 until 05/16/2024 [facility] Work Phone: Comment on above: 1 Occurrences starti ng 05/16/2023 until 05/16/2024 Esophageal motility study w/interp&rpt MANOMETRY ESOPHAGEAL Endoscopy Routine Nausea 05/25/2023 [facility] Work Phone: End: 06-14-2024 Gastric emptying imaging study NM GASTRIC EMPTYING SOLID Radiology Routine Nausea 1 Occurrences starting 05/16/2023 until 06/14/2024 [facility] Work Phone: Comment on above: 1 Occurrences starti ng 05/16/2023 until 06/14/2024 Patient Education [facility] Work Phone: Patient referral [facility] Work Phone: SURGICAL PATHOLOGY [facility] Work Phone: Comment on above: Release Upon Aliein g for 1 Occurrences starting 07/14/2023, 1 completed [facility] Immunizations Immunization Date Immunization Notes Care Provider Jamal jackson 06-15-2022 SARS-CoV-2 (COVID-19 ) [id number] Yolanda Myronapryl [facility] 06-09-2022 influenza virus vaccine, unspecified formulation Nurse 2 Work Phone: [facility] 03-18-2022 SARS-CoV-2 mRNA (ofrdtixsnvg-ovkh-cxw jett) vaccine Ospina SALAM [facility] 11-06-2021 SARS-CoV-2 (COVID-19 ) mRNA BNT-162b2 vax Ospina SALAM [facility] 05-06-2021 influenza virus vaccine, unspecified formulation JHOANA MELGOZA [facility] 02-26-2021 SARS-CoV-2 (COVID-19 ) mRNA BNT-162b2 vax JHOANA MELGOZA [facility] 02-05-2021 SARS-CoV-2 (COVID-19 ) mRNA BNT-162b2 vax Ospina SALAM [facility] Comment on above: Result Comment: 2021: [id number] NEGATED: Highlighted row has not occurred!04-14-2022 influenza virus vaccine, unspecified formulation Monique Marquez [facility] Payers Date Payer Category Payer Unknown RINA CASTRO PPO [id number] 2022-Present [phone] [address] [place] [address] PPO [id number] 2018 Private Health Insurance [id number] 2018 Private Health Insurance [facility] CHOICE PLUS [id number] 2018-Present [phone] [address] [place] [address] HMO [id number] 1970 Unknown [id number] 2.16.840.1.924661.3.579.2 .647 1970 Unknown [id number] 2.16.840.1.461839.3.579.2 .593 1970 Unknown [id number] 2.16.840.1.487470.3.579.2 .593 1970 Unknown [id number] 2.16.840.1.095174.3.579.2 .593 1970 Unknown [id number] 2.16.840.1.522587.3.579.2 .593 1970 Unknown [id number] 2.16.840.1.146286.3.579.2 .593 1970 Unknown [id number] 2.16.840.1.709475.3.579.2 .593 1970 Unknown [id number] 2.16.840.1.712138.3.579.2 .593 1970 Unknown [id number] 2.16.840.1.817735.3.579.2 .593 1970 Unknown [id number] 2.16.840.1.084967.3.579.2 .593 1970 Unknown [id number] 2.16.840.1.050421.3.579.2 .593 1970 Unknown [id number] 2.16.840.1.998427.3.579.2 .593 1970 Unknown [id number] 2.16.840.1.709030.3.579.2 .593 1970 Unknown [id number] 2.16.840.1.735429.3.579.2 .593 1970 Unknown [id number] 2.16.840.1.504350.3.579.2 .593 1970 Unknown [id number] 2.16.840.1.900128.3.579.2 .593 1970 Unknown [id number] 2.16.840.1.443285.3.579.2 .593 1970 Unknown [id number] 2.16.840.1.538689.3.579.2 .593 1970 Unknown [id number] 2.16.840.1.701270.3.579.2 .593 1970 Unknown [id number] 2.16.840.1.444552.3.579.2 .593 1970 Unknown [id number] 2.16.840.1.378349.3.579.2 .593 1970 Unknown [id number] 2.16.840.1.193143.3.579.2 .356 1970 Unknown [id number] 2.16.840.1.863961.3.579.2 .356 1970 Unknown [id number] 2.16.840.1.094880.3.579.2 .1286 1970 Unknown [id number] 2.16.840.1.765574.3.579.2 .1286 1970 Unknown [id number] 2.16.840.1.128970.3.579.2 .1286 1970 Unknown [id number] 2.16.840.1.273996.3.579.2 .1286 1970 Unknown [id number] 2.16.840.1.848514.3.579.2 .727 1970 Unknown [id number] 2.16.840.1.345965.3.579.2 .727 1970 Unknown [id number] 2.16.840.1.332440.3.579.2 .727 1970 Unknown [id number] 2.16.840.1.688342.3.579.2 .727 1959 Medicaid [id number] 1959 Self-pay [id number] 1959 Unknown [id number] 1959 Unknown [id number] Medicare Medicare [id number] Unknown [id number] 2.16.840.1.613883.3.579.2 .531 Unknown [id number] 2.16.840.1.160820.3.579.2 .531 Unknown [id number] 2.16.840.1.836039.3.579.2 .531 Unknown [id number] 2.16.840.1.777107.3.579.2 .531 Unknown [id number] 2.16.840.1.340753.3.579.2 .531 Worker's Compensation Industrial Self Ins [facility] [id number] Social History Date Type Detail Facility Start: 12-03-2021 End: 02-16-2024 Tobacco smoking status Ex-smoker (finding) [facility] Start: 08-12-2020 End: 05-06-2023 Sex Assigned At Female [facility] Tobacco smoking status Never [facility] Start: 1970 Sex Assigned At Female [facility] End: 09-05-2011 History of tobacco use Current smoker [facility] Work Phone: End: 09-05-2011 History of tobacco use Cigarette Smoker [facility] Work Phone: Start: 04-28-2018 End: 05-06-2023 Tobacco use and exposure Smokeless tobacco non-user [facility] Work Phone: Start: 04-28-2018 End: 05-06-2023 Alcohol intake Current drinker of alcohol (finding) [facility] Start: 08-12-2020 End: 05-06-2023 History of Social function [facility] Start: 04-28-2018 End: 05-06-2023 Tobacco Comment still smokes [facility] Start: 04-28-2018 Alcohol Comment social [facility] Start: 1970 Sex Assigned At Not on file [facility] Start: 07-14-2023 Alcohol intake Ex-drinker (finding) [facility] Functional Status Date Assessment Result Facility 02-16-2024 Functional Status N/A [facility] 02-19-2023 Functional Status N/A [facility] 07-22-2022 Functional Status N/A [facility] 04-14-2022 Functional Status N/A [facility] Clinical Notes 12-02-2021 to 03-19-2024 Evleyn Black RN - 07/29/2023 11:17 AM ESTPatient InstructionsTelephone Encounter - Evelyn Black RN - 07/22/2023 3:[address] - 07/22/2023 1:15 PM EST Note Date & Type Note Facility 03-19-2024 Note [facility] Note Reason for cardiology [...] and acid r (more content not included)... [facility] 02-16-2024 Evaluation + Plan note Diagnostic Tests PendingUrine Culture 02/16/24 [facility] 02-15-2024 Note [facility] Note Reason for cardiology [...] PROT 6.3 08/ (more content not included)... [facility] 08-25-2023 Note HNO ID: [id number] Author: Ellis Mayberry, DO Service: ? Author [...] Successful intubation technique: video laryngoscopy Devices used: Rodriguze Endotracheal tube insertion site: oral Blade: Jake Blade size: #3 ETT size (mm): 7.0 Measured from: lips Measurement (cm): 22 Placement verified by: chest auscultation and capnometry Cormack-Lehane Classification: grade I - full view of glottis Number of attempts at approach: 1 Airway not difficult SIGNATURE: Ellis Mayberry DO PATIENT NAME: Constantino Cardoso DATE: August 25, 2023 TIME: 2:59 PM CSN: [id number] [facility] 08-25-2023 Note Q3 Patient Name: Constantino Cardoso Procedure Date: 08/25/2023 2:38 PM Date of : 1970 Admit Type: Outpatient Age: 53 Gender: Female Note Status: Finalized Attending MD: Marques Bradley MD, [id number] Procedure: Upper GI endoscopy Indications: Gastroparesis- for [...] the patient. Procedure Code(s): --- Professional --- 59003 Diagnosis Code(s): --- Professional --- K44.9 Z98.890 CPT copyright 2020 [employer]. All rights reserved. Attending Participation: I personally performed the entire procedure. Scope In: 2:59:10 PM Scope Out: 3:37:20 PM MD Marques Rainey MD 08/25/2023 3:41:00 PM This report has been signed electronically by Marques Bradley MD Number of Addenda: 0 Note Initiated On: 08/25/2023 2:38 PM [facility] 07-29-2023 Note HNO ID: [id number] Author: Evelyn Black RN Service: ? Author Type: Registered Nurse Type: Progress Notes Filed: 07/29/2023 11:18 AM Note Text: e [facility] 07-29-2023 History of Present illness Narrative e documented in this encounter [facility] 07-22-[address] [...] High Protein, Atkins, Boost Glucose Control, Owyn, [place] Breakfast Essentials Light Start mixed with Fairlife [...] calories, no carbonation, no caffeine. Protein juarez (gfaluth4t, Isopure, Gatorade protein), electrolyte drinks (Gatorade or Powerade zero, sugar free liquid IV or Drip Drop), sugar free jello and sugar free popsicles are also acceptable. Nutrition Monitoring & Evaluation: increase PO intake >75% of estimated needs, weight check and patient update Need for Follow up: based on surgery status documented in this encounter [facility] 07-22-2023 Note HNO ID: [id number] Author: Melissa Montalvo RD Service: ? Author Type: Registered Dietitian Type: Progress Notes Filed: 07/22/2023 4:06 PM Note Text: [facility] Nutrition Therapy: Virtual Consult - Initial Assessment I have communicated my name and active licensure. The patient?s identity and physical location were verified at the time of this visit. Either the patient or their legal client care representative has been informed of the risks [...] High Protein, Atkins, Boost Glucose Control, Owyn, [place] Breakfast Essentials Light Start mixed with Fairlife fat free or 1% milk. -Check www.bariatricfusion.com or www.unHaivision.com for additional options. Take small bites, eat slowly, chew food well, and always eat protein first. Separate eating and drinking by 30 min before and after. Aim for >64 oz water/day. Take small sips and avoid straws. Liquids should be sugar-free, no calories, no carbonation, no caffeine. 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 Breda body weight: 159 lbs. 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 [facility] 07-22-2023 Miscellaneous Notes BMI SPECIALTY CARE COORDINATION TELEPHONE ENCOUNTER Pt was seen in clinic and an EGD was ordered and completed. Recommendation was a GPOEM. Will consult with surgeon next week regarding next POC for pt. Pt VU. documented in this encounter [facility] 07-22-2023 History of Present illness Narrative [facility] Nutrition Therapy: Virtual Consult - Initial Assessment I have communicated my name and active licensure. The patient s identity and physical location were verified at the time of this visit. Either the patient or their legal client care representative has been informed of the risks [...] High Protein, Atkins, Boost Glucose Control, Owyn, [place] Breakfast Essentials Light Start mixed with Fairlife fat free or 1% milk. -Check www.bariatricfusion.com or www.unMaxpanda SaaS Softwarery.com for additional options. Take small bites, eat slowly, chew food well, and always eat protein first. Separate eating and drinking by 30 min before and after. Aim for >64 oz water/day. Take small sips and avoid straws. Liquids should be sugar-free, no calories, no carbonation, no caffeine. 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 Breda body weight: 159 lbs. 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 Procedure Code(s): --- Professional --- 47426 Diagnosis Code(s): --- Professional --- K44.9 K31.89 Z98.890 R10.13 CPT copyright 2020 [employer]. All rights reserved. Attending Participation: I personally performed the entire procedure. Scope In: 10:40:19 AM Scope Out: 10:50:37 AM MD Marques Rainey MD 07/14/2023 10:53:09 AM This report has been signed electronically by Marques Bradley MD Number of Addenda: 0 Note Initiated On: 07/14/2023 10:24 AM [facility] 07-14-2023 Nurse Note 1121: Dr. Mehrdad Carter [...] GASTROENTEROLOGY documented in this encounter [facility] 07-13-2023 Note HNO ID: [id number] Author: Brennen Shaw, PhD Service: ? Author Type: Physician Type: Progress Notes Filed: 07/19/2023 10:07 AM Note Text: [facility] BARIATRIC SURGERY BEHAVIORAL HEALTH EVALUATION DATE OF SERVICE: July 13, 2023 TIME OF SERVICE: 2:10 PM-3:29 PM COST CENTER: [facility] CPT CODE: - 07238 Brief Emotional/Behavioral Assessment with scoring/documentation - [id number] Virtual Psych Diagnostic Eval BILLING CODE: ENDO PSYL MAIN 20409/Marco DATE OF FIRST SERVICE THIS CYCLE: July 13, 2023 SESSION #: 1 BMI Surgical Pathway Visit type: Bariatric Surgeon Visit I have communicated my name and active licensure. The patient's identity and physical location were verified at the time of this visit. Either the patient or their legal client care representative has been informed of the risks and benefits of -- and alternatives to -- treatment through a remote evaluation and consents to proceed with the evaluation remotely. Zoom for [facility] IDENTIFYING INFORMATION: Ms. Constantino Cardoso is a [...] other people who have undergone the procedure (usp Specific areas of understanding that should be [...] the binge episod (more content not included)... [facility] 05-27-2023 Miscellaneous Notes BMI SPECIALTY CARE COORDINATION TELEPHONE ENCOUNTER Pt contacted today regarding testing ordered when she had a consult with Dr Bradley. Manometry was normal and her GES was severely delayed. Reviewed results and will discuss with if POP is the next plan of care. Will update pt. Pt agreed with plan. documented in this encounter [facility] 05-26-2023 Note HNO ID: [id number] Author: Nabil Bell RT(R) Service: Nuclear Medicine [...] safety can be found using this link: [email or web address] [email or web address] %[email or web address]-%20Diagnostic%20Nuclear%20Medicine %20Procedures.pdf SIGNATURE: RT Charmaine(R) PATIENT NAME: Constantino Cardoso DATE: May 26, 2023 TIME: 7:17 AM PAGER/CONTACT #: [facility] 05-25-2023 Note HNO ID: [id number] Author: Pedro Gonzalez LPN Service: ? Author Type: LICENSED NURSE Type: Progress Notes Filed: 05/25/2023 4:15 PM Note Text: Name: Constantino Cardoso [facility]#: [id number] Date: 05/25/2023 ESOPHAGEAL MANOMETRY TEST Indication: Nausea [...] the test without difficulty. .Pedro Gonzalez LPN [facility] 05-25-2023 History of Present illness Narrative Name: Constantino Cardoso [facility]#: [id number] Date: 05/25/2023 ESOPHAGEAL MANOMETRY TEST Indication: Nausea [...] LPN documented in this encounter [facility] 05-16-2023 Miscellaneous Notes BMI SPECIALTY [...] bypass. documented in this encounter [facility] 05-06-2023 Note HNO ID: [id number] Author: Marques Bradley MD Service: ? Author [...] for internal providers or letter via the [employer] for external providers. Chief Complaint: [...] patient's care with the resident. Signature: Marques Braldey MD Date: 05/12/2023 Time: 8:15 AM [facility] 05-02-2023 Miscellaneous Notes BMI SPECIALTY CARE COORDINATION TELEPHONE ENCOUNTER Chief complaint & duration dysphagia. Type of procedure: hernia repair hiatal with Dr. MORTENSEN in [place] February of 2019. Sending OP notes Nursing assessment (subjective/objective) . pain in chest area and getting worse Went to [place] ED March 2023 who told her she needed a stent in her heart..but her c/o were difficulty swallowing and sent pt home and referred her to [facility] and was there in the hospital for [...] obtained documented in this encounter [facility] 04-26-2023 Miscellaneous Notes [facility] SPECIALTY CARE COORDINATION TELEPHONE ENCOUNTER Second attempt to contact this pt. Pt has upcoming information, and unable to complete any chart prep, history, symptoms, testing etc. LVM and call back number. documented in this encounter [facility] 04-21-2023 Evaluation note Encounter Date Diagnosis Assessment Notes Apr, Esophageal dysmotility (ICD-10 - K22.4) Apr, Esophageal spasm (ICD-10 - K22.4) Apr, Nausea & vomiting (ICD-10 - R11.2) Patinet reports that she still has nausea but no vomiting Patient reports that she is to see Dr. Strong at [facility] Patient is to start dicyclomine 20 mg 4 times daily sent to [facility] today RTO 6 weeks Apr, Dysphagia (ICD-10 - R13.10) [employer] Other 08-14-2023 Miscellaneous Notes* Telephone Encounter - Evelyn Black RN - 04/18/2023 2:13 PM EDT [facility] SPECIALTY CARE COORDINATION TELEPHONE ENCOUNTER Contacted pt regarding a referral from Dr Martinez's office. LVM and call back number. [facility] Miscellaneous Notes* Telephone Encounter - Yancy Lopez - 04/07/2023 1:15 PM EDT Referral rec'd [facility] Evaluation + Plan note Extracted [...] pain, # 20 tab(s), Refills(s) 0, Pharmacy: [facility]/pharmacy #[id number], 170, cm, 02/19/23 0:56:00 EDT, Height/Length Dosing, 90.2, kg, 02/19/23 0:56:00 EDT, Weight Dosing XR Elbow 3+ Views Right XR Wrist 3+ Views Right [facility]06-17-2023 Hospital Discharge instructions Patient Education 02/19/2023 [...] are safe for you. General instructions Take wart-wss-txubqkn and prescription medicines only as told by [...] provider. Document Revised: 12/29/2020 Document Reviewed: 12/29/2020 [email or web address] Patient Education 2022 [employer]. Follow Up Care 02/19/2023 00:51:16 With:JUDI YOUSSEF Address: [address] [place] [address]- [phone] Business (1) When:02/22/2023 Comments:Take the pain medication as prescribed as needed for pain. Please follow-up with your primary care doctor in the next 2 to 3 days for further evaluation management. Please return to the ED for any new or worsening symptoms or [facility]08-10-2022 Hospital Discharge instructions Patient Education 04/14/2022 [...] water added (diluted fruit juice). Eat bland, xyoh-tj-yqebsp foods in small amounts as you are able. These foods include bananas, applesauce, rice, lean meats, toast, and crackers. Avoid fluids that contain a lot of sugar or caffeine, such as energy drinks, sports drinks, and soda. Avoid alcohol. Avoid spicy or fatty foods. General instructions Take llsw-cyw-tcrumwo and prescription medicines only as told by your health care provider. Drink enough fluid to keep your urine pale yellow. Wash your hands often using soap and water. If soap and water are not available, use hand mixing tank operator. Make sure that all people in your [...] eating and drinking to prevent dehydration. Take jubd-xxi-xtpflcc and prescription medicines only as told by [...] 08/22/2006 Document Revised: 12/14/2019 Document Reviewed: 01/30/2019 [email or web address] Patient Education 2020 [email or web address] Follow Up Care 01/28/2022 13:58:23 With:Monique Marquez CNP Address: When:3 months [facility] 05-26-2022 Hospital Discharge instructions [...] drinks. ?Tomatoes and foods made with tomatoes. ?[place] or spicy foods. ?Chocolate and peppermint. Do not drink alcohol. General instructions Take vycf-ngv-mygioby and prescription medicines only as told by [...] 11/11/2004 Document Revised: 12/18/2018 Document Reviewed: 12/18/2018 [email or web address] Patient Education 2019 [employer]. Follow Up Care 01/13/2022 12:36:01 With:Monique Marquez CNP Address: When:3 months [facility] 05-09-2022 Hospital Discharge instructions Patient Education 01/11/2022 09:56:58 Endoscopy, Care After Procedure [facility] Endoscopy Care After Procedure Please read the instructions outlined below and refer to this sheet in the next few weeks. These discharge instructions provide you with general information on caring for [facility] Your doctor may also give you specific [...] blood. Document Released: 04/05/2005 Document Re-Released: 02/13/2007 [facility] [place] Patient Information 2010 [employer]. 01/11/2022 09:56:58 Pearce's Esophagus Pearce's Esophagus Pearce's [...] drinks. ?Tomatoes and foods made with tomatoes. ?[place] or spicy foods. ?Chocolate and peppermint. Do not drink alcohol. General instructions Take ljtb-ixx-[id number] and prescription medicines only as told by [...] 11/11/2004 Document Revised: 12/18/2018 Document Reviewed: 12/18/2018 [email or web address] Patient Education [employer]. Follow Up Care 12/03/2021 15:32:26 With:Anai REAGAN Address: [address] [place] [address] Business (1) When:1 to 2 weeks Comments:Call for any problems. [facility]03-[facility]-2022 Hospital Discharge instructions Follow Up Care 12/02/2021 10:32:32 With:JHOANA MELGOZA PA-C, URL Address: [address] [place] [address] When: Unknown [facility] Evaluation + Plan note Future Appointments Appointment Date:01/11/2022 09:40:00 AM Scheduled Provider: Location:[facility] Appointment Type:Surgery [facility] Evaluation + Plan note Future Appointments Appointment Date:04/14/2022 03:00:00 PM Scheduled Provider:Monique Marquez CNP Location:[facility] Appointment Type:[facility] Follow Up Future Scheduled Tests Radiology* NM Gastric Emptying Study 01/28/22 [facility] Evaluation + Plan note Future Appointments Appointment Date:04/14/2022 03:00:00 PM Scheduled Provider:Monique Marquez CNP Location:[facility] Dig[facility]ive [facility] Appointment Type:[facility] Future Appointments Appointment Date:04/20/2022 12:00:00 PM Scheduled Provider: Location:[facility] Appointment Type:US Abdominal/Pelvis () Appointment Date:06/02/2022 09:45:00 AM Scheduled Provider:Anai REAGAN MD Location:[facility] Digestive [facility] Appointment Type[facility] Follow Up Future Scheduled Tests Laboratory* Fecal WBC Lactoferrin 04/14/22 * Giardia lamblia, Direct Detection EIA 04/14/22 * O & P Exam, Routine 04/14/22 * Clostridium difficile by PCR 04/14/22 * Enteric Panel by PCR 04/14/22 * CBC w/ Auto Diff 04/14/22 * Comprehensive Metabolic Panel 04/14/22 Radiology* US Abdomen Complete 04/20/22 [facility] Evaluation + Plan note Future Appointments Appointment Date:06/02/2022 09:45:00 AM Scheduled Provider:Anai REAGAN MD Location:[facility] Appointment Type:[facility] Follow Up Diagnostic Tests Pending * O & P Exam, Routine 04/29/22 * Giardia lamblia, Direct Detection EIA 04/29/22 [facility] information [facility] Work Phone: Evaluation noteNo InformationNort Penneo Other Evaluation note* Diagnosis Nausea- Primary Nausea alone Dysphagia, unspecified type documented in this encounter [facility] note* Diagnosis Nausea Nausea alone documented in this encounter [facility] note* Diagnosis Dysphagia, unspecified type Gastroparesis History of Ramiro fundoplication Personal history of surgery to other organs documented in this encounter [facility] note* Diagnosis Gastroparesis- Primary Malnutrition of moderate degree (HCC) Malnutrition of moderate degree Gastro-esophageal reflux disease without esophagitis Esophageal reflux Overweight (BMI 25.0-29.9) Overweight Dietary counseling and surveillance Dietary surveillance and counseling [facility] Diagnosis Gastroparesis- Primary documented in this encounter [facility] general Narrative - Reported* Type Description Date Medical History mitral valve prolapse Medical History gallstones Medical History Acid reflux Medical History Hiatal Hernia Medical History headache Surgical History hysterectomy Surgical History cholecystectomy Surgical History hiatal hernia repair Hospitalization History see above Hospitalization History kindey infections hospit alized x3 [employer] Other Hospital course Narrative No data available for this section [facility] Discharge instructions No data available for this section [facility] Additional Instructions Follow-up with your primary care doctor Return to ED if develop worsening symptoms [facility] Work Phone: Hospital Discharge instructions Additional Instructions If your symptoms return/worsen or you develop any further concerns or symptoms please see your doctor or return to the emergency department immediately. Please be sure to continue follow-up with the proposal review analyst and with your scheduled EGD and further testing.[facility] Work Phone: Progress note No data available for this section [facility] (n[facility]ative)* Diagnostic Procedure Only (Routine) - Authorized Specialty Diagnoses / Procedures Referred By Eileen mueller Referred To Contact MOLECULAR & FUNCTIONAL IMAGING Diagnoses Nausea Procedures NM GASTRIC EMPTYING SOLID GASTRIC EMPTYING STUDY Marques Bradley MD [address] [place] [address] Molecular & Functional Imaging [address] [place] [address] Referral ID Status Reason Start Date Expiration Date Visits Requested Visits Authorized [id number] Authorized Auto-Generat ed Referral 05/16/2023 06/14/2024 1 1 * Outpatient Procedure (Routine) - Authorized Specialty Diagnoses / Procedures Referred By Eileen mueller Referred To Contact [facility] Diagnoses Nausea Procedures MANOMETRY ESOPHAGEAL ESOPHAGEAL MOTILITY STUDY W/INTERP&RPT Marques Bradley MD [address] [place] [address] [facility] [address] [place] [address] Referral ID Status Reason Start Date Expiration Date Visits Requested Visits Authorized [id number] Authorized Auto-Generat ed Referral 05/16/2023 05/16/2024 1 1 [facility] for referral (narrative)* Outpatient Procedure (Routine) - Closed Specialty Diagnoses / Procedures Referred By Contac t Referred To Contact [facility] Diagnoses Dysphagia, unspecified type Gastroparesis History of Ramiro fundoplication Procedures EGD - THERAPEUTIC, EUS, OR TUBE INTERVENTIONS ESOPHAGOGASTRODUODENOSCOPY TRANSORAL DIAGNOSTIC STOMACH SURGERY PROCEDURE UNLISTED Marques Bradley MD [address] [place] [address] [address] Referral ID Status Reason Start Date Expiration Date V isits Requested Visits Authorized [id number] Closed Auto-Generate d Referral 05/27/2023 05/27/2024 1 1 [facility] for referral (narrative)* Outpatient Procedure (Routine) - Authorized Specialty Diagnoses / Procedures Referred By Contac t Referred To Contact [facility] [place] Diagnoses Gastroparesis Procedures EGD - THERAPEUTIC, EUS, OR TUBE INTERVENTIONS ESOPHAGOGASTRODUODENOSC OPY TRANSORAL DIAGNOSTIC STOMACH SURGERY PROCEDURE UNLISTED Marques Bradley MD [address] [place] [address] [facility] [address] [place] [address] Referral ID Status Reason Start Date Expiration Date Visits Requested Visits Authorized [id number] Authorized Auto-Generat ed Referral 3 07/29/2024 1 1 [facility] for visit Narrative* Outpatient Procedure (Routine) - Closed Specialty Diagnoses / Procedures Referred By Contac t Referred To Contact [facility] Diagnoses Dysphagia, unspecified type Gastroparesis History of Ramiro fundoplication Procedures EGD - THERAPEUTIC, EUS, OR TUBE INTERVENTIONS ESOPHAGOGASTRODUODENOSCOPY TRANSORAL DIAGNOSTIC STOMACH SURGERY PROCEDURE UNLISTED Marques Bradley MD [address] [place] [address] [facility] [address] [place] [address] Referral ID Status Reason Start Date Expiration Date V isits Requested Visits Authorized [id number] Closed Auto-Generate d Referral 05/27/2023 05/27/2024 1 1 [facility] Summary Purpose Family History No [...] 018 10:23am Hospital Course Note MR#: [id number] [facility] Pt. Name: Constantino Cardoso Admitted: 08/13/2019 [...] a 49-year-old female, who was transferred to [facility] from [facility] with acute abdominal pain. The pain has started on Tuesday while at work. 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 The pain feels similar to when she was here in April during her stay. During that time, she was told there was nothing left for Dr. Mortensen to do and she has been following up with GI specialist in [place]. She is actually due to have an EGD on August 22, 2019. She has been having nausea, but no vomit (more content not included)... Chief Complaint and Reason for Visit Chief Complaint stomach pain/hx marium Chief Complaint stomach pain/hx marium R10.9 K59.00 Chief Complaint abd pain stomach pian/vomiting Additional Source Comments INFORMATION SOURCE (unrecogn ized section and content) DATE CREATED AUTHOR 06/03/2020 [facility] DATE CREATED AUTHOR AUTHOR'S ORGANIZ ATION 01/17/2023 [facility] DATE CREATED AUTHOR AUTHOR'S ORGANIZ ATION 04/02/2023 [facility] DATE CREATED AUTHOR AUTHOR'S ORGANIZ ATION 05/16/2023 [facility] DATE CREATED AUTHOR AUTHOR'S ORGANIZ ATION 08/26/2023 [facility] DATE CREATED AUTHOR AUTHOR'S ORGANIZ ATION 12/03/2023 [facility] DATE CREATED AUTHOR AUTHOR'S ORGANIZ ATION 02/17/2024 [facility] DATE CREATED AUTHOR AUTHOR'S ORGANIZ ATION 02/19/2024 [facility] DATE CREATED AUTHOR AUTHOR'S ORGANIZ ATION 03/23/2024 [facility] DATE CREATED AUTHOR AUTHOR'S ORGANIZ ATION 04/10/2024 [facility] Care Team (unrecognized sect ion and content) Team Status: Inactive Member Role Status Dates Judi Youssef GILL BOX FIXER-C Primary Care Provider Active Conner Griffith DO Emergency Provider Active Team Status: Active Member Role Status Dates Judi Youssef GILL BOX FIXER-C Primary Care Provider Active Team Status: Inactive Member Role Status Dates Jennie Ayon MD Attending Provider Active Judi Youssef GILL BOX FIXER-C Primary Care Provider Active Team Status: Inactive Member Role Status Dates Judi Youssef GILL BOX FIXER-C Primary Care Provider Active Pete Thakkar DO Emergency Provider Active Physical Science Technician Relationship Specialty Start Date End Date Joel Alejandra PCP - General Family Medicine 04/26/18 Rafa Rangel [address] [place] [phone] Referring General Surgery 04/26/18 Physical Science Technician Relationship Specialty Start Date End Date Joel Alejandra PCP - General Family Medicine 04/26/18 Rafa Rangel [address] [place] [address] Referring General Surgery 04/26/18 Physical Science Technician Relationship Specialty Start Date End Date Joel Alejandra PCP - General Family Medicine 04/26/18 Rafa Rangel [address] [place] [address] Referring General Surgery 04/26/18 Physical Science Technician Relationship Specialty Start Date End Date Joel Alejandra PCP - General Family Medicine 04/26/18 Rafa Rangel [address] [place] [address] Referring General Surgery 04/26/18 Physical Science Technician Relationship Specialty Start Date End Date Joel Alejandra PCP - General Family Medicine 04/26/18 Rafa Rangel [address] [place] [address] Referring General Surgery 04/26/18 Physical Science Technician Relationship Specialty Start Date End Date Joel Alejandra PCP - General Family Medicine 04/26/18 Rafa Rangel [address] [place] [phone] Referring General Surgery 04/26/18 Physical Science Technician Relationship Specialty Start Date End Date DomenicoJoel blanco Ansley PCP - General Family Medicine 04/26/[address] [place] [address] [address] [place] [address] Referring General Surgery 04/26/18 Physical Science Technician Relationship Specialty Start Date End Date Joel Alejandra PCP - General Family Medicine 04/26/18 Raf[address] R[address] [place] [address] [address] [place] [phone] Referring General Surgery 04/26/18 Physical Science Technician Relationship Specialty Start Date End Date Joel Alejandra PCP - General Family Medicine 04/26/[address] [place] [address] [address] [place] [phone] Referring General Surgery 04/26/18 Physical Science Technician Relationship Specialty Start Date End Date Joel Alejandra PCP - General Family Medicine 04/26/18 Raf[address] R[address] [place] [address] [address] [place] [address] Referring General Surgery 04/26/18 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 [place] Diagnoses Nausea Procedures MANOMETRY ESOPHAGEAL ESOPHAGEAL MOTILITY STUDY W/INTERP&RPT Marques Bradley MD [address] [place] [address] [place] [id number] Referral ID Status Reason Start Date Expiration Date V isits Requested Visits Authorized [id number] Closed Auto-Generate d Referral 05/16/2023 05/16/2024 1 [...] any alcohol or drug abuse patient.[facility] the event this information is protected by the Federal Confidentiality of Alcohol and Drug Abuse Patient Records regulations: The Federal rules restrict any use of the information to criminally investigate or prosecute any alcohol or drug abuse patient.[facility] Center[facility] the event this information is protected by the Federal Confidentiality of Alcohol and Drug Abuse Patient Records regulations: The Federal rules restrict any use of the information to criminally investigate or prosecute any alcohol or drug abuse patient.[facility] Center[facility] the event this information is protected by the Federal Confidentiality of Alcohol and Drug Abuse Patient Records regulations: The Federal rules restrict any use of the information to criminally investigate or prosecute any alcohol or drug abuse patient.[facility] Center[facility] the event this information is protected by the Federal Confidentiality of Alcohol and Drug Abuse Patient Records regulations: The Federal rules restrict any use of the information to criminally investigate or prosecute any alcohol or drug abuse patient.[facility] Center[facility] the event this information is protected by the Federal Confidentiality of Alcohol and Drug Abuse Patient Records regulations: The Federal rules restrict any use of the information to criminally investigate or prosecute any alcohol or drug abuse patient.[facility] Center[facility] the event this information is protected by the Federal Confidentiality of Alcohol and Drug Abuse Patient Records regulations: The Federal rules restrict any use of the information to criminally investigate or prosecute any alcohol or drug abuse patient.[facility] Center[facility] the event this information is protected by the Federal Confidentiality of Alcohol and Drug Abuse Patient Records regulations: The Federal rules restrict any use of the information to criminally investigate or prosecute any alcohol or drug abuse patient.[facility] CenterIn the event this information is protected by the Federal Confidentiality of Alcohol and Drug Abuse Patient Records regulations: The Federal rules restrict any use of the information to criminally investigate or prosecute any alcohol or drug abuse patient.[facility] CenterIn the event this information is protected by the Federal Confidentiality of Alcohol and Drug Abuse Patient Records regulations: The Federal rules restrict any use of the information to criminally investigate or prosecute any alcohol or drug abuse patient.[facility] CenterIn the event this information is protected by the Federal Confidentiality of Alcohol and Drug Abuse Patient Records regulations: The Federal rules restrict any use of the information to criminally investigate or prosecute any alcohol or drug abuse patient.[facility] CenterIn the event this information is protected by the Federal Confidentiality of Alcohol and Drug Abuse Patient Records regulations: The Federal rules restrict any use of the information to criminally investigate or prosecute any alcohol or drug abuse patient.[facility] FOR RECORDS PERTAINING TO PATIENTS [...] BE BASED ON THE PRIMARY CLINICAL RECORDS. [facility]. provides no warranty or guarantee of the accuracy or completeness of information in this document.
--- NOTE | 2024-04-13 14:47 | CT_ITS ---
[address] [address] Patient Name: CONSTANTINO CARDOSO MRN: [id number] date: 1970 Sex: F Assigned Patient Location: ER Current Patient Location: Accession/Order Number: [id number] Exam Date: 04/13/2024 14:43 Report Date: 04/13/2024 15:30 At the request of: VIJI WOOTEN Procedure: CT abdomen pelvis wo con EXAMINATION: CT abdomen pelvis wo con HISTORY: abdominal pain COMPARISON: CT abdomen pelvis 12/15/2023 TECHNIQUE: Axial, Coronal, and Sagittal images were obtained without and/or with IV contrast as indicated by examination type. Dose reduction techniques were achieved by using automated exposure control and/or adjustment of mA and/or kV according to patient size and/or use of iterative reconstruction technique. FINDINGS: LUNG BASES: No visible pulmonary or pleural disease. LIVER: No enlargement, atrophy, suspicious density, or significant focal lesion. BILIARY: Cholecystectomy. PANCREAS: No lesion, fluid collection, or abnormal duct dilatation. SPLEEN: No enlargement or focal lesion. ADRENALS: No mass or enlargement. KIDNEYS: No mass, obstruction, or calcification. BOWEL/MESENTERY: Prior gastric surgery. Fluid filled distal loops of small bowel and fluid levels throughout the colon. No visible mass, obstruction, or bowel wall thickening. AORTA/VASCULAR: No aneurysm or dissection. RETROPERITONEUM: No mass or adenopathy. LYMPH NODES: No adenopathy. URINARY BLADDER: No visible focal wall thickening, lesion, or calculus. PELVIC ORGANS: Hysterectomy. ABDOMINAL WALL: No mass or hernia. BONES: No bony lesion or fracture. OTHER: Negative. CT/CT abdomen pelvis wo con IMPRESSION: 1. Fluid-filled loops of small and large bowel without obstruction or appreciable inflammatory changes. Possible mild enteritis. Electronically authenticated by: RUSH FALCON Date: 04/13/2024 15:30
[2024-04-13 14:49] LABS: Basophils Absolute Auto 0.1 10^3/uL (0.0-0.1); Basophils Percent Auto 0.7 % (0.2-2.0); Eosinophils Absolute Auto 0.3 10^3/uL (0.0-0.7); Eosinophils Percent Auto 3.4 % (0.9-7.0); Hematocrit 37.2 % (36.0-48.0); Hemoglobin 11.9 g/dL (12.0-16.0); Immature Granulocytes Abs Auto 0.01 10^3/uL (0.00-0.03); Immature Granulocytes Pct Auto 0.1 % (0.0-0.5); Lymphocytes Absolute Auto 3.1 10^3/uL (1.2-3.8); Lymphocytes Percent Auto 39.8 % (20.5-60.0); Mean Corpuscular Hemoglobin 29.7 pg (26.7-34.0); Mean Corpuscular Volume 92.8 fL (81.0-99.0); Mean Platelet Volume 9.1 fL (9.5-13.5); Monocytes Absolute Auto 0.7 10^3/uL (0.3-0.8); Monocytes Percent Auto 8.7 % (1.7-12.0); Neutrophils Absolute Auto 3.6 10^3/uL (1.4-6.5); Neutrophils Percent Auto 47.3 % (43.0-75.0); Platelet Count 353 10^3/uL (150-450); Red Blood Count 4.01 10^6/uL (4.20-5.40); Red Cell Distribution Width 13.2 % (11.0-15.0); White Blood Count 7.7 10^3/uL (4.0-11.0)
[2024-04-13] MEDS: KETOROLAC TROMETHAMINE 30 MG/ML VIAL IVP (14:55)
[2024-04-13] MEDS: 0.9 % SODIUM CHLORIDE 1,000 ML 999 ML IV (14:55)
[2024-04-13] MEDS: ONDANSETRON PF 4 MG/2 ML VIAL IV (14:55)
[2024-04-13 14:56] LABS: Bilirubin Urine NEGATIVE (NEGATIVE); Blood Urine TRACE-I (NEGATIVE); Clarity Urine CLEAR (CLEAR); Color Urine LT. YELLOW (YELLOW); Glucose Urine UA NEGATIVE (NEGATIVE); Ketones Urine NEGATIVE (NEGATIVE); Leukocyte Esterase Urine NEGATIVE (NEGATIVE); Nitrite Urine NEGATIVE (NEGATIVE); Protein Urine NEGATIVE (NEG/TRACE); Urobilinogen Urine 0.2 EU/dL (0.2-1.0); pH Urine 5.5 (5.0-9.0)
[2024-04-13 15:11] LABS: Alanine Aminotransferase 28 U/L (14-59); Albumin Level 3.6 g/dL (3.4-5.0); Alkaline Phosphatase 143 U/L (46-116); Aspartate Amino Transferase 19 U/L (15-37); BUN Creatinine Ratio 16.1; Bilirubin Total 0.5 mg/dL (0.2-1.0); Calcium 9.3 mg/dL (8.5-10.1); Carbon Dioxide 26.5 mmol/L (21.0-32.0); Chloride 104 mmol/L (98-107); Estimated GFR (African America >60 (>=60); Estimated GFR (Non-African Ame >60 (>=60); Globulin 3.6 g/dL; Glucose 106 mg/dL (74-106); Potassium 3.5 mmol/L (3.5-5.1); Sodium 141 mmol/L (136-145); Total Protein 7.2 g/dL (6.4-8.2); Troponin I High Sensitivity 28.4 pg/mL (4.0-51.3)
[2024-04-13 15:16] LABS: Urine Microscopic Indicated YES
[2024-04-13 15:20] VITALS: PULSE 50
[2024-04-13 15:25] LABS: Bacteria Urine NONE SEEN #/HPF (NONE SEEN); Cast Seen? NONE SEEN #/LPF (NONE SEEN); Crystals Seen? None Seen #/HPF (None Seen); Mucus Urine NONE SEEN (NONE SEEN); RBC Urine 0-2 #/HPF (0-2); Squamous Epithelial Cell Urine RARE #/LPF (NONE/RARE); Urine Culture Indicated NO; WBC Urine NONE SEEN #/HPF (NONE SEEN)
--- NOTE | 2024-04-13 15:42 | ED_ITS ---
HPI - Abdominal Pain General Chief Complaint: Abdominal Pain Stated Complaint: ABDOMINAL PAIN, NAUSEA Time Seen by Provider: 04/13/24 14:19 Source: patient Mode of arrival: walk-in Limitations: no limitations History of Present Illness HPI narrative: 53-year-old chief complaint of abdominal pain. Patient states she has had lower abdominal pain for the last several weeks. She states she has had loose stools at home. She has a history of bowel obstruction in the past. She has been nauseous but not vomiting. Patient does not appear toxic she is afebrile. She denies a history of fever or chills. Have a history of gastroparesis. She had multiple abdominal surgeries including total abdominal hysterectomy and cholecystectomy patient has diffuse abdominal tenderness bowel sounds are active to all 4 quadrants Related Data Home Medications ?Medication ?Instructions ?Recorded ?Confirmed dicyclomine 20 mg tablet 20 mg PO QID 11/27/23 04/13/24 pantoprazole 40 mg tablet,delayed 40 mg PO DAILY 12/15/23 04/13/24 release promethazine 25 mg tablet 25 mg PO Q6H PRN nausea and 12/15/23 04/13/24 vomiting cholecalciferol (vitamin D3) 50 50 mcg PO DAILY 04/13/24 04/13/24 mcg (2,000 unit) capsule lisinopril 10 mg tablet 10 mg PO DAILY 04/13/24 04/13/24 metoprolol succinate 50 mg 50 mg PO DAILY 04/13/24 04/13/24 tablet,extended release 24 hr sertraline 50 mg tablet 50 mg PO DAILY 04/13/24 04/13/24 Previous Rx's ?Medication ?Instructions ?Recorded dicyclomine 20 mg tablet 20 mg PO TID PRN abdominal pain 04/13/24 #20 tabs ondansetron 4 mg disintegrating 4 mg PO Q8H PRN nausea and 04/13/24 tablet vomiting 3 days #10 tabs Allergies Allergy/AdvReac Type Severity Reaction Status Date / Time cyclobenzaprine Allergy Severe Anaphylaxis Verified 12/15/23 05:20 [From Flexeril] Penicillins Allergy Intermediate Hives Verified 12/15/23 05:20 Review of Systems ROS Narrative All Systems are negative except as noted/marked.All systems reviewed and otherwise negative PFSH PFS Medical History (Updated 04/13/24 @ 15:40 by Aicha Medley) Partial obstruction of small intestine ?K56.600 - Partial intestinal obstruction, unspecified as to cause (ICD-10) Constipation ?K59.00 - Constipation, unspecified (ICD-10) Ileus ?K56.7 - Ileus, unspecified (ICD-10) Nausea and vomiting ?R11.2 - Nausea with vomiting, unspecified (ICD-10) GERD (gastroesophageal reflux disease) ?K21.9 - Gastro-esophageal reflux disease without esophagitis (ICD-10) Elevated troponin ?R77.8 - Other specified abnormalities of plasma proteins (ICD-10) Chronic upper abdominal pain ?R10.10 - Upper abdominal pain, unspecified (ICD-10) ?G89.29 - Other chronic pain (ICD-10) Epigastric abdominal pain ?R10.13 - Epigastric pain (ICD-10) Abdominal pain, chronic, generalized ?R10.84 - Generalized abdominal pain (ICD-10) ?G89.29 - Other chronic pain (ICD-10) Headache, migraine ?G43.909 - Migraine, unspecified, not intractable, without status migrainosus (ICD-10) Gastroparesis ?K31.84 - Gastroparesis (ICD-10) Mitral valve disorder ?I05.9 - Rheumatic mitral valve disease, unspecified (ICD-10) Surgical History 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 ?K95.89 - Other complications of other bariatric procedure (ICD-10) ?K22.4 - Dyskinesia of esophagus (ICD-10) History of hernia surgery ?Z98.890 - Other specified postprocedural states (ICD-10) ?Z87.19 - Personal history of other diseases of the digestive system (ICD-10) FH: cholecystectomy ?Z83.79 - Family history of other diseases of the digestive system (ICD-10) H/O: hysterectomy ?Z90.710 - Acquired absence of both cervix and uterus (ICD-10) Family History Father Family history of myocardial infarction Family history of cancer Grandmother Family history of diabetes mellitus Family history of stroke Sister Family history of hypertension Social History Within the past year, how often did you have a drink containing alcohol: never Within the past year, how many standard drinks containing alcohol did you have on a typical day: 1 or 2 Within the past year, how often did you have six or more drinks on one occasion: never Total score: 0 Score interpretation: A score less than 3 is consistent with normal alcohol consumption. 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 Known occupational exposures/hazards: No Highest level of school completed/degree received: high school graduate Do you want help with school or training: No Are you now , , , , never or living with a partner: In a typical week, how many times do you talk on the telephone with family, friends, or neighbors: 3 or more times per week How often do you get together with friends or relatives: 3 or more times per week How often do you attend latter day or congregation services: never Do you belong to any clubs or organizations such as latter day groups unions, [employer] or athletic groups, or school groups: no Total score: 2 Score interpretation: A score of greater than or equal to 2 indicates the lowest level of social isolation. Little interest or pleasure in doing things: not at all Feeling down, depressed, or hopeless: not at all Feel stressed/tense/nervous/anxious/difficulty sleeping: not at all Due to disability, difficulty making decisions: No Do you think of yourself as: straight/heterosexual Gender Identity: female Exam Narrative Exam Narrative: All Systems are negative except as noted/marked.All systems reviewed and otherwise negative Nurses note and vital signs reviewed and patient is not hypoxic. General: The patient appears uncomfortable, nontoxic Skin: Warm, dry, no pallor noted. There is no rash noted. Head: Normocephalic, atraumatic Eye: Normal conjunctiva, no drainage, EOMI. PERRL Ears, Nose, Mouth, and Throat: oral mucosa is moist. Nares patent. Mouth without vesicles. Ear canals patent. Tm's without Erythema Cardiovascular: Regular Rate and Rhythm Respiratory: Patient is in no distress, no accessory muscle use, lungs are clear to auscultation, no wheezing, rales or rhonchi Back: non-tender, no CVA tenderness bilaterally to percussion. GI: Normal bowel sounds, no tenderness to palpation, no masses appreciated. No rebound, guarding, or rigidity noted. Musculoskeletal: The patient has no evidence of calf tenderness, no pitting edema, symmetrical pulses noted bilaterally Neurological: A&O x4, normal speech Psychiatric: Cooperative Constitutional Vital Signs, click to edit/add: Last Vital Signs Temp 97.7 F 04/13/24 14:29 Pulse 56 L 04/13/24 14:29 Resp 18 04/13/24 14:29 BP 162/88 H 04/13/24 14:29 Pulse Ox 99 04/13/24 14:29 O2 Del Method Room Air 04/13/24 14:29 Course Vital Signs Vital signs: Vital Signs Temperature 97.7 F 04/13/24 14:29 Pulse Rate 56 L 04/13/24 14:29 Respiratory Rate 18 04/13/24 14:29 Blood Pressure 162/88 H 04/13/24 14:29 Pulse Oximetry 99 04/13/24 14:29 Oxygen Delivery Method Room Air 04/13/24 14:29 Temperature 97.7 F 04/13/24 14:29 Pulse Rate 56 L 04/13/24 14:29 Respiratory Rate 18 04/13/24 14:29 Blood Pressure 162/88 H 04/13/24 14:29 Pulse Oximetry 99 04/13/24 14:29 Oxygen Delivery Method Room Air 04/13/24 14:29 MDM - Abdominal Pain Differential Diagnosis Differential diagnosis: Likely abdominal pain, constipation, diverticulitis, gastroenteritis and small bowel obstruction Medical Records Attestation: I reviewed the patient's medical records. Medical records narrative: 53-year-old chief complaint of abdominal pain. Patient states she has had lower abdominal pain for the last several weeks. She states she has had loose stools at home. She has a history of bowel obstruction in the past. She has been nauseous but not vomiting. Patient does not appear toxic she is afebrile. She denies a history of fever or chills. Have a history of gastroparesis. Upon arrival to the emergency room IV was established patient was given IV fluids Zofran and Toradol. CBC CMP urinalysis reviewed and unremarkable. CT scan of the abdomen and pelvis were performed and showed small leuk bowels no acute bowel obstruction. Patient will be discharged home diagnosis of enteritis. She has had no nausea or vomiting here. Patient told to continue with clear liquid diet at home. Follow-up with her primary care physician. She will be given a prescription for Zofran and Bentyl. Patient verbalized understanding agrees with plan of care Lab Data Attestation: I reviewed the patient's lab results. Labs: Lab Results 04/13/24 04/13/24 Range/Units 14:26 14:36 WBC 7.7 (4.0-11.0) 10^3/uL RBC 4.01 L (4.20-5.40) 10^6/uL Hgb 11.9 L (12.0-16.0) g/dL Hct 37.2 (36.0-48.0) % MCV 92.8 (81.0-99.0) fL MCH 29.7 (26.7-34.0) pg MCHC 32.0 (29.9-35.2) g/dL RDW 13.2 (11.0-15.0) % Plt Count 353 (150-450) 10^3/uL MPV 9.1 L (9.5-13.5) fL Neut % (Auto) 47.3 (43.0-75.0) % Lymph % (Auto) 39.8 (20.5-60.0) % [place] % (Auto) 8.7 (1.7-12.0) % Eos % (Auto) 3.4 (0.9-7.0) % Baso % (Auto) 0.7 (0.2-2.0) % Neut # (Auto) 3.6 (1.4-6.5) 10^3/uL Lymph # (Auto) 3.1 (1.2-3.8) 10^3/uL [place] # (Auto) 0.7 (0.3-0.8) 10^3/uL Eos # (Auto) 0.3 (0.0-0.7) 10^3/uL Baso # (Auto) 0.1 (0.0-0.1) 10^3/uL Abs Immat Gran (auto) 0.01 (0.00-0.03) 10^3/uL Imm/Tot Granulo (auto) 0.1 (0.0-0.5) % Sodium 141 (136-145) mmol/L Potassium 3.5 (3.5-5.1) mmol/L Chloride 104 (98-107) mmol/L Carbon Dioxide 26.5 (21.0-32.0) mmol/L Anion Gap 14.0 BUN 14.0 (7.0-18.0) mg/dL Creatinine 0.87 (0.55-1.02) mg/dL Est GFR ( Amer) >60 (>=60) Est GFR (Non-Af Amer) >60 (>=60) BUN/Creatinine Ratio 16.1 Glucose 106 (74-106) mg/dL Lactate 1.0 (0.4-2.0) mmol/L Calcium 9.3 (8.5-10.1) mg/dL Total Bilirubin 0.5 (0.2-1.0) mg/dL AST 19 (15-37) U/L ALT 28 (14-59) U/L Alkaline Phosphatase 143 H (46-116) U/L Troponin I High Sens 28.4 (4.0-51.3) pg/mL Total Protein 7.2 (6.4-8.2) g/dL Albumin 3.6 (3.4-5.0) g/dL Globulin 3.6 g/dL Albumin/Globulin Ratio 1.0 Lipase 39.0 (16.0-77.0) U/L Urine Color Lt. yellow (YELLOW) Urine Clarity Clear (CLEAR) Urine pH 5.5 (5.0-9.0) Ur Specific [place] 1.020 (1.005-1.025) Urine Protein Negative (NEG/TRACE) mg/dL Urine Glucose (UA) Negative (NEGATIVE) mg/dL Urine Ketones Negative (NEGATIVE) mg/dL Urine Occult Blood Trace-i (NEGATIVE) Urine Nitrite Negative (NEGATIVE) Urine Bilirubin Negative (NEGATIVE) Urine Urobilinogen 0.2 (0.2-1.0) EU/dL Ur Leukocyte Esterase Negative (NEGATIVE) Urine RBC 0-2 (0-2) #/HPF Urine WBC None seen (NONE SEEN) #/HPF Ur Squamous Epith Cells Rare (NONE/RARE) #/LPF Urine Crystals None seen (None Seen) #/HPF Urine Bacteria None seen (NONE SEEN) #/HPF Urine Casts None seen (NONE SEEN) #/LPF Urine Mucus None seen (NONE SEEN) Ur Culture Indicated? No Imaging Data CT scan - abdomen: Radiologist's impression: ITS Impressions Abdomen/Pelvis CT 04/13/24 14:47 IMPRESSION: 1. Fluid-filled loops of small and large bowel without obstruction or appreciable inflammatory changes. Possible mild enteritis. Electronically authenticated by: RUSH FALCON Date: 04/13/2024 15:30 ECG Data Interpretation: 1458 sinus bradycardia with a rate of 50 bpm, AK interval 160 ms QRS duration 102 ms, no ST elevation depression, no STEMI Discharge Plan Discharge Stand Alone Forms: Portal Instructions Chief Complaint: Abdominal Pain Clinical Impression: Enteritis Patient Disposition: Home, Self-Care Time of Disposition Decision: 15:39 Condition: Good Prescriptions / Home Meds: New dicyclomine 20 mg tablet 20 mg PO TID PRN (Reason: abdominal pain) Qty: 20 0RF ondansetron 4 mg tablet,disintegrating 4 mg PO Q8H PRN (Reason: nausea and vomiting) 3 Days Qty: 10 0RF No Action pantoprazole 40 mg tablet,delayed release (DR/EC) 40 mg PO DAILY promethazine 25 mg tablet 25 mg PO Q6H PRN (Reason: nausea and vomiting) lisinopril 10 mg tablet 10 mg PO DAILY metoprolol succinate 50 mg tablet extended release 24 hr 50 mg PO DAILY sertraline 50 mg tablet 50 mg PO DAILY cholecalciferol (vitamin D3) 50 mcg (2,000 unit) capsule 50 mcg PO DAILY dicyclomine 20 mg tablet 20 mg PO QID Print Language: Ug[place] Instructions: Enteritis (ED) Referrals: STEPHANIE YOUSSEF [Primary Care Provider] - 1 week
[2024-04-13] MEDS: MORPHINE SULFATE 2 MG/ML SYRINGE IV (16:14)
[2024-04-13 16:21] VITALS: BP 137/77; PULSE 52; O2SAT 98
== END 2024-04-13 16:22 | disposition home or self-care (01) ==
PROVIDERS: Physician Assistant; Emergency Provider Emergency Medicine; PCP Nurse Practitioner Family
DX: K52.9 Noninfective gastroenteritis and colitis, unspecified (principal); Z90.710 Acquired absence of both cervix and uterus; Z90.49 Acquired absence of other specified parts of digestive tract; Z87.891 Personal history of nicotine dependence
CPT/HCPCS: 36415; 74176; 80053; 81001; 83605; 83690; 84484; 85025; 93005; 99285; J1885; J2270; J2405

== ENCOUNTER 2024-06-01 21:35 | Emergency (ER) | payer BC, SELFPAY ==
[2024-06-01 21:41] VITALS: BP 173/87; PULSE 62; TEMP 36.5; O2SAT 99; BMI 28.2
--- OUTSIDE RECORDS SUMMARY | 2024-06-01 21:41 | XMS_ITS | CCD ---
Author Organization [facility] Care Team Providers Care Keel Press Operator Name Role Phone LEONA MORTENSEN Admitting Unavailable LEONA MORTENSEN Attending Unavailable KEVIN HERRERA Primary Care Unavailable KEVIN HERRERA Referring Unavailable AR Procedure Practitioner Unavailab ORESTES Cruz Surgeon Unavailable JUDI YOUSSEF Primary Care Physician DONI Youssef Primary Care Provider [phone] DO Conner Griffith Emergency Provider Jennie Ayon Unavailable MD Jennie Ayon Attending Provider [phone] JOHNATHAN RUDOLPH Attending Unavailibis RUDOLPH, DR [...] Admitting Unavailable GUILLERMO ALLEN Consulting Unavailable SHAIKH Juna Luis DAVIS Admitting Unavailable JUDI YOUSSEF Primary [...] CHUNG WINN Consulting Unavailable PA, DR NORA Hairtson Attending Unavailable PA, DR NORA Hairston Consulting [...] Care Unavailable JUDI YOUSSEF Consulting Unavailable LINDA Youssef-C Judi Joan Primary Care Provider Gladis DO Prieto Hanna Emergency Provider [phone] RigobertoDO Pete coates Emergency Provider [phone] [facility], [facility] Primary Care Provider [phone] Rafa Rangel Unavailable Renny Omalley Unavailable MARQUES BRADLEY Referring Unavailable [facility] Primary Care Unavailable [facility] Primary Care Unavailable KROH, MARQUES Patel Referring Unavailable KROH, MARQUES Patel Attending Unavailable IMER CHERRY Referring Unavailable [facility] Primary Care Unavailable [facility] Primary Care Unavailable KROH, MARQUES Patel Referring Unavailable KAITLYN TORRES Attending Unavailable KROH, MARQUES Patel Referring Unavailable [facility] Primary Care Unavailable MELISSA MNOTALVO Attending Unavailable KROH, MARQUES Patel Referring Unavailable [facility] Primary Care Unavailable SLYSLY Attending Unavailable KROH, MARQUES Patel Referring Unavailable [facility] Primary Care Unavailable BRENNEN SHAW Attending Unavailable Orzech, Yolanda X Attending Unavailable Orzech, Yolanda X Admitting Unavailable Orzech, Yolanda X Attending Unavailable Orzech, Yolanda X Admitting Unavailable Orzech, Yolanda X Attending Unavailable Samuel Estrella Attending Unavailable Orzech, Yolanda X Attending Unavailable LINDA Youssef-Paula Franco Primary Care Provider MD Jennie Ayon Attending Provider [phone] EDISON KINCAID Attending Unavailable EDISON KINCAID Attending Unavailable EDISON KINCAID Attending Unavailable Judi Youssef Primary Care Unavailable Asaad, Imad Attending Unavailable Asaad, Imad Admitting Unavailable Allergies Allergy Classification Reported Allergen(s) Allergy Type Date of Onset Reaction(s) Facility (8 sources) cyclobenzaprine; Translations: [CYCLOBENZAPRINE] Drug Allergy 8 Swelling of Lip/Tongue/Thro at, Swelling of Lip/Tongue/Thro at, throat swelling [facility] Repository (9 sources) Penicillins; Translations: [PENICILLINS] Drug allergy (disorder) 12-29-201 5 Rash [facility] Repository (20 sources) cyclobenzaprine; Translations: [cyclobenzaprine] Drug Allergy 8 Pharyngeal swelling (finding), Swelling [facility] (20 sources) Penicillin; Translations: [penicillin] Drug Allergy 8 Swelling (morphologic abnormality), Swelling [facility] (10 sources) penicillAMINE Drug Allergy 4 [facility] (2 sources) cyclobenzaprine Drug Allergy 6 [facility] Repository (1 source) traMADol Drug Allergy [facility] Repository (1 source) traMADol Drug Allergy [facility] Repository (1 source) cyclobenzaprine Drug Allergy [address] [facility] Repository (1 source) penicillAMINE Drug Allergy [address] [place] [address] Repository (1 source) Penicillins Drug allergy (disorder) [address] [facility] Repository Medications Current Medications Medication Drug [...] every twelve hours as needed for headache APAP/butalbital/caf feine 325 mg-50 mg-40 mg Tab 1 tab(s), [...] Refills(s) 0 Start Date: 02/16/24 Status: Ordered cholecalciferol 0.05 mg oral capsule (1 source) Vitamin D Start: 05-01-2024 take 50 ug by mouth once daily Cholecalciferol (Vitamin D3) Active 50 MCG PO Daily May 01, 2024 12:00am estradiol 0.1 mg/ml vaginal cream (2 sources) Estrogen Start: 02-16-2024 Estrace 0.1 mg/g Cream 1 gm, Vaginal, As Directed, 42.5 gm, Refill(s) 3, Apply pea-sized amount around urethra every night x 3 weeks, then 2 times weekly for maintenance, [facility]/pharmacy #[id number], 170, cm, 02/16/24 9:10:00 EDT, Height/Length Dosing, 81.7, kg, 02/16/24 9:10:00 EDT, Weight Dosing Start Date: 02/16/24 Status: Ordered famotidine 20 mg oral tablet (13 sources) Histamine-2 Receptor Antagonist Start: 01-28-2022 End: 04-28-2022 take 1 tablet by mouth once daily at bedtime Pepcid 20 mg Tab 20 mg = 1 tab(s), Oral, Once a day (at bedtime), X 90 day(s), # 90 tab(s), Refills(s) 0, Pharmacy: [facility]/pharmacy #[id number], 170, cm, 01/28/22 [...] Discontinued 20 MG PO Twice daily 30 42 March 28, 2018 12:00am May 09, 2018 12:01am hyoscyamine sulfate 0.125 mg oral tablet (1 source) Start: 05-01-2024 take 0.125 mg by mouth once daily Hyoscyamine Sulfate Active 0.125 MG PO Daily May 01, 2024 12:00am lisinopril 10 mg oral tablet (1 source) Angiotensin Converting Enzyme Inhibitor Start: 05-01-2024 take 10 mg by mouth once daily Lisinopril Active 10 MG PO Daily May 01, 2024 12:00am 24 hr metoprolol succinate 50 mg extended release oral tablet (1 source) beta-Adrenergic Serena Start: 05-01-2024 take 50 mg by mouth once daily Metoprolol Succinate Active 50 MG PO Daily May 01, 2024 12:00am naproxen 500 mg oral tablet (11 sources) Nonsteroidal Anti-inflammatory Drug Start: 02-19-2023 take 500 mg by mouth twice daily Naproxen Active 500 MG PO Twice daily March 23, 2023 12:00am Start: 06-21-2019 End: 02-15-2023 take 1 capsule by mouth twice daily Naproxen Sodium (Aleve) 220 mg Capsule Discontinued 220 MG PO Twice daily June 21, 2019 12:00am February 15, 2023 9:46am omeprazole 20 mg Cap-DR (1 source) Start: 01-11-2022 take 1 capsule by mouth once daily omeprazole 20 mg Cap-DR 20 mg = 1 cap(s), Oral, Daily, # 90 cap(s), Refills(s) 3, Pharmacy: [facility]/pharmacy #[id number], 170, cm, 01/11/22 9:17:00 EDT, Height/Length Dosing, 83, kg, 01/11/22 9:17:00 EDT, Weight Dosing Start Date: 01/11/22 Status: Ordered omeprazole 40 mg Cap-DR (1 source) Start: 01-28-2022 End: 04-28-2022 take 1 capsule by mouth once daily omeprazole 40 mg Cap-DR 40 mg = 1 cap(s), Oral, Daily, X 90 day(s), # 90 cap(s), Refills(s) 0, Pharmacy: [facility]/pharmacy #[id number], 170, cm, 01/28/22 13:40:00 EDT, Height/Length Dosing, 84.5, kg, 01/28/22 13:40:00 EDT, Weight Dosing Start Date: 01/28/22 Stop Date: 04/28/22 Status: Ordered pantoprazole 40 mg delayed release oral tablet (20 sources) Proton Pump Inhibitor Start: 05-11-2024 take 40 mg by mouth once daily Pantoprazole Active 40 MG PO Daily 56 56 May 11, 2024 12:00am Start: 02-15-2023 End: 05-01-2024 take 40 mg by mouth once daily Pantoprazole Discontinu ed 40 MG PO Daily March 30, 2023 12:00am May 01, 2024 9:31am Start: 04-13-2018 End: 02-25-2019 take 40 mg by mouth twice daily Pantoprazole Discontin ued 40 MG PO Twice daily November 12, 2018 1:00am February 25, 2019 6:46pm Start: 04-05-2018 End: 04-13-2018 take 1 tablet by mouth once daily Pantoprazole (Protonix) 40 mg Tablet,Delayed Release (Dr/Ec) Discontinued 40 MG PO Daily April 05, 2018 12:00am April 13, 2018 11:34am sertraline 50 mg oral tablet (1 source) Serotonin Reuptake Inhibitor Start: 05-01-2024 take 50 mg by mouth once daily Sertraline Active 50 MG PO Daily May 01, 2024 12:00am Symbicort 160/4.5 inhalation aerosol with adapter (10 sources) Start: 01-14-2020 take 2 puff(s) by inhalation twice daily Symbicort 160/4.5 inhalation aerosol with adapter 2 puff(s), Inhalation, BID, Asthma Start Date: 01/14/20 Status: Ordered venlafaxine (8 sources) Serotonin and Norepinephrine Reuptake Inhibitor Venlafaxine HCl ER Active Zofran ODT 4 mg Tab-Dis (10 sources) Start: 09-20-2020 take 1 tablet by mouth every six hours as needed for nausea Zofran ODT 4 mg Tab-Dis 4 mg = 1 tab(s), Oral, q6hr, PRN Nausea/Vomiting, # 12 tab(s), Refills(s) 0, Pharmacy: [facility]/pharmacy #[id number], 170, cm, 09/20/20 16:03:00 EST, Height/Length Dosing, 87.5, kg, 09/20/20 16:03:00 EST, Weight Dosing Start Date: 09/20/20 Status: Ordered Completed/Discontinued Medications Medication Drug Class(es) Dates Sig (Normalized) Sig (Original) acetaminophen 325 mg / HYDROcodone bitartrate 5 mg oral tablet (10 sources) Opioid Agonist Start: 06-21-2019 End: 02-15-2023 take 1 tablet by mouth every six hours Hydrocodone-Acetami nophen ([place]) 5-325 mg Tablet Discontinued 1 TAB PO Q6H June 21, 2019 12:00am February 15, 2023 9:46am Start: 11-12-2018 End: 01-30-2019 take 1 tablet by mouth every four to six hours Hydrocodone-Acetaminophen ([place]) 5-325 mg tablet Discontinued 1 TAB PO EVERY 4-6 HOURS 10 3 November 12, 2018 January 30, 2019 9:43am Albuterol (5 sources) beta2-Adrenergic Agonist Start: 10-07-2018 End: 11-12-2018 [...] formoterol fumarate 0.0045 mg/actuat metered dose inhaler (5 sources) Corticosteroid, beta2-Adrenergic Agonist Start: 11-12-2018 End: 02-25-2019 take 1 puff(s) by inhalation twice daily Budesonide-Formoterol (Symbicort) 160-4.5 mcg/actuation Hfa Aerosol Inhaler Discontinued 2 PUFF INHALATION Twice daily November 12, 2018 1:00am February 25, 2019 6:46pm ciprofloxacin 500 mg oral tablet (12 sources) Quinolone Antimicrobial Start: 01-24-2018 ciprofloxacin HCl (CIPRO) 500 mg tablet dexlansoprazole 60 mg delayed release oral capsule (5 sources) Proton Pump Inhibitor Start: 02-25-2019 End: 06-21-2019 take 60 mg by mouth once daily Dexlansoprazole Discontinued 60 MG PO Daily February 25, 2019 12:00am June 21, 2019 1:42pm dicyclomine hydrochloride 10 mg oral capsule (20 sources) Anticholinergic Start: 02-15-2023 End: 05-01-2024 take 10 mg by mouth four times daily Dicyclomine Discontinued 10 MG PO Four times daily February 15, 2023 12:00am May 01, 2024 9:31am Start: 02-15-2023 End: 03-23-2023 take 10 mg by mouth three times daily Dicyclomine Discontinued 10 MG PO Three times daily February 15, 2023 12:00am March 23, 2023 6:41am Start: 05-05-2021 End: 04-30-2022 take 1 capsule by mouth four times daily Bentyl 10 mg Cap 10 mg = 1 cap(s), Oral, QID, X 30 day(s), # 120 cap(s), Refills(s) 11, Pharmacy: [facility]/pharmacy #[id number], 170, cm, 05/05/21 14:15:00 EDT, Height/Length Dosing, 83.1, kg, 05/05/21 14:15:00 EDT, Weight Dosing Start Date: 05/05/21 Stop Date: 04/30/22 Status: Ordered Start: 09-20-2020 take 2 capsules by m out four times daily Bentyl 10 mg Cap 20 mg = 2 cap(s), Oral, QID, # 20 cap(s), Refills(s) 0, Pharmacy: [facility]/pharmacy #[id number], 170, cm, 09/20/20 [...] by mouth before meals and at bedtime. doxycycline hyclate 100 mg oral tablet (5 sources) Tetracycline-cla ss Drug Start: 11-13-19 End: 01-31-20 take 100 mg by mouth twice daily Doxycycline Hyclate Discontinued 100 MG PO Twice daily 24 06November 12, 2018 1:00am January 30, 2019 9:43am hydroCHLOROthiazide 25 mg / triamterene 37.5 mg oral capsule (13 sources) Potassium-sparin g Diuretic, Thiazide Diuretic Start: 01-31-20 End: 02-16-20 take 1 tablet by mouth once daily Triamterene-Hydrochl orothiazid Discontinued 1 TAB PO Daily January 30, 2019 12:00am February 15, 2023 9:47am take 1 tablet by ana th every twenty-four hours Triamterene-HCTZ 37.5-25 MG 1 tablet in the morning Orally Once a day for 30 day(s) Active ibuprofen 800 mg oral tablet (5 sources) Nonsteroidal Anti-inflammatory Drug Start: 02-09-2019 End: 02-27-2019 take 800 mg by mouth three times daily Ibuprofen Discontinued 800 MG PO Three times daily February 09, 2019 12:00am February 27, 2019 3:49pm lidocaine hydrochloride 20 mg/ml mucous membrane topical solution (12 sources) Antiarrhythmic, Amide Local Anesthetic Start: 04-24-2018 LIDOCAINE VISCOUS 2 % solution losartan potassium 100 mg oral tablet (5 sources) Angiotensin 2 Receptor Serena Start: 11-12-2018 End: 02-15-2023 take 100 mg by mouth once daily Losartan Discontinued 100 MG PO Daily November 12, 2018 1:00am February 15, 2023 9:46am meclizine hydrochloride 25 mg oral tablet (5 sources) Antiemetic Start: 10-07-2018 End: 11-12-2018 take 25 mg by mouth three times daily Meclizine Discontinued 25 MG PO Three times daily October 07, 2018 1:00am November 12, 2018 4:42pm meloxicam 15 mg oral tablet (5 sources) Nonsteroidal Anti-inflammatory Drug Start: 01-30-2019 End: 02-25-2019 take 15 mg by mouth once daily Meloxicam Discontinued 15 MG PO Daily January 30, 2019 12:00am February 25, 2019 6:46pm metoclopramide 10 mg oral tablet (20 sources) Dopamine-2 Receptor Antagonist Start: 04-13-2018 End: 04-26-2024 take 1 tablet by mouth every six hours Metoclopramide Hcl (Reglan) 10 mg Tablet Discontinued 10 MG PO Q6H March 23, 2023 12:00am April 26, 2024 8:28am Start: 04-13-2018 take 1 tablet by ana three times daily Reglan 10 mg Tab 10 mg = 1 tab(s), Oral, TID, # 120 tab(s), Refills(s) 0, Pharmacy: [facility]/pharmacy #[id number], 170, cm, 04/13/21 15:38:00 EDT, Height/Length Dosing, 84.4, kg, 04/13/21 15:38:00 EDT, Weight Dosing Start Date: 04/13/21 Status: Ordered Start: 04-13-2018 take 1 tablet by [facility] four times daily Reglan 10 mg Tab 10 mg = 1 tab(s), Oral, QID, # 120 tab(s), Refills(s) 0, Pharmacy: [facility]/pharmacy #[id number], 170, cm, 07/22/22 14:33:00 EST, Height/Length Dosing, 86.6, kg, 07/22/22 14:33:00 EST, Weight Dosing Start Date: 07/22/22 Status: Ordered Start: 04-13-2018 Reglan 10 MG 1 tablet daily as needed Orally once a day for 30 days Apr, Active metroNIDAZOLE 500 mg oral tablet (12 sources) Nitroimidazole Antimicrobial Start: 01-24-2018 metroNIDAZOLE (FLAGYL) 500 mg tablet nitrofurantoin, macrocrystals 25 mg / nitrofurantoin, monohydrate 75 mg oral capsule (5 sources) Nitrofuran Antibacterial Start: 06-21-2019 End: 02-15-2023 take 1 capsule by mouth twice daily at mealtime Nitrofurantoin Monohyd/M-Cryst (Macrobid) 100 mg capsule Discontinued 100 MG PO Twice daily 14 June 21, 2019 12:00am February 15, 2023 9:46am must administer with a meal/food omeprazole 40 mg delayed release oral capsule (20 sources) Proton Pump Inhibitor Start: 02-15-2023 End: 03-31-2023 take 40 mg by mouth once daily Omeprazole Discontinued 40 MG PO Daily February 15, 2023 12:00am March 31, 2023 5:11pm Start: 01-28-2022 End: 10-16-2022 take 1 capsule by mouth once daily omeprazole 40 mg Cap-DR 40 mg = 1 cap(s), Oral, Daily, X 90 day(s), # 90 cap(s), Refills(s) 1, Pharmacy: [facility]/pharmacy #[id number], 170, cm, 04/14/22 14:53:00 EDT, Height/Length Dosing, 87, kg, 04/14/22 14:53:00 EDT, Weight Dosing Start Date: 04/19/22 Stop Date: 10/16/22 Status: Ordered Start: 03-24-2018 End: 04-13-2018 take 20 mg by mouth once daily Omeprazole Discontinued 20 MG PO Daily March 24, 2018 12:00am April 13, 2018 11:33am Comment on above: Take 40 mg by mouth once daily. ondansetron 4 mg disintegrating oral tablet (20 sources) Serotonin-3 Receptor Antagonist Start: 3 End: 3 take 4 mg by mouth once daily [...] very 8 hours as needed for nausea/vomiting. OXcarbazepine 300 mg oral tablet (20 sources) Anti-epileptic Agent Start: 023 End: 024 take 300 mg by mouth once daily at bedtime Oxcarbazepine Discontinued 300 MG PO Daily at bedtime March 23, 2023 12:00am April 26, 2024 8:29am Start: 02-15-2023 End: 04-26-2024 take 1 tablet by mouth once daily in the morning, then take 2 tablets by mouth in the evening Oxcarbazepine Discontinued 150 MG PO Every morning February 15, 2023 12:00am April 26, 2024 8:29am take 1 tablet po in am and 2 tablet po in the evening take 1 tablet by ana th twice daily OXcarbazepine (TRILEPTAL) 150 mg tablet Take 150 mg by mouth twice daily. 0 Active Comment on above: Take 150 mg by mouth twice daily. polyethylene glycol 3350 69754 mg powder for oral solution (3 sources) Osmotic Laxative Start: End: Polyethylene Glycol 3350 (Miralax) 17 gram Powder In Packet Discontinued 17 GM PO Daily February 15, 2023 12:00am May 11, 2024 8:09am predniSONE 20 mg oral tablet (5 sources) Start: End: take 40 mg by mouth once daily in the morning Prednisone Discontinued 40 MG PO Every morning 10 October 07, 2018 1:00am November 12, 2018 4:42pm administer with food or milk promethazine hydrochloride 25 mg oral tablet (20 sources) Phenothiazine Start: End: take 25 mg by mouth every four to six hours Promethazine Discontinued 25 MG PO EVERY 4-6 HOURS October 26, 2022 1:00am February 15, 2023 9:46am pyridostigmine bromide 60 mg oral tablet (2 sources) Start: End: take 60 mg by mouth twice daily Pyridostigmine [place] Discontinued 60 MG PO Twice daily 60 March 31, 2023 12:00am May 01, 2024 9:31am sucralfate 1000 mg oral tablet (13 sources) Aluminum Complex Start: End: take 1 tablet by mouth every six hours Sucralfate (Carafate) 1 gram tablet Discontinued 1 GM PO Q6H 56 14 February 15, 2023 12:00am May 01, 2024 9:31am Start: 02-27-2019 End: 06-21-2019 take 1 tablet [...] 05, 2018 12:00am October 07, 2018 8:47pm traMADol hydrochloride 50 mg oral tablet (5 sources) Opioid Agonist Start: 02-27-2019 End: 06-21-2019 take 50 mg by mouth every four to six hours Tramadol Discontinued 50 MG PO EVERY 4-6 HOURS 20 February 27, 2019 12:00am June 21, 2019 1:45pm Vitamin D (4 sources) Start: 04-26-2024 End: 05-01-2024 vitamin d Discontinued PO April 26, 2024 12:00am May 01, 2024 9:30am Start: 04-26-2024 vitamin d Acti ve PO April 26, 2024 12:00am Start: 02-16-2024 Vitamin D Inte rnational_Unit, Oral, qWeek, Refills(s) 0 Start Date: 02/16/24 Status: Ordered Problems Active Problems Problem Classification Problem Date [...] sources) Kidney stone 05-10-2019 Episodic Cardiac dysrhythmias (6 sources) Palpitations; Translations: [Palpitations] Onset: 02-15-2024 Episodic Coagulation and hemorrhagic disorders (2 sources) Von Willebrand's disease; Translations: [VON WIL[place]BR[place] DISEASE] Onset: 02-04-2022 Chronic Epilepsy; convulsions (10 sources) Seizure 07-10-2020 Episodic Esophageal disorders (20 sources) Pearce's esophagus; Translations: [Pearce's esophagus without dysplasia] Onset: 01-11-2022 Chronic Essential hypertension (15 sources) Hypertensive disorder; Translations: [Essential (primary) hypertension] [...] mitral (valve) prolapse] Onset: 11-04-2022 09-08-2019 Chronic Intestinal obstruction without hernia (7 sources) Partial intestinal obstruction, unspecified as to cause; Translations: [Small bowel obstruction] Onset: 03-27-2022 Episodic Miscellaneous mental health disorders (1 source) Psychological [...] Other long-term (current) drug therapy; Translations: [OTH LONG-TERM CURRENT DRUG THERAPY] Onset: 11-30-2022 Episodic Other diseases of bladder and urethra (11 sources) Traumatic urethral stricture; 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, female] Onset: 02-16-2024 02-24-2021 Episodic Other disorders of stomach and duodenum (19 sources) Gastroparesis syndrome; Translations: [Gastroparesis] Onset: 04-14-2022 05-26-2021 Episodic Other disorders of stomach and duodenum (1 source) Gastroparesis; Translations: [Gastroparesis] Onset: 08-25-2023 Episodic Other gastrointestinal disorders (10 sources) Diarrhea [...] Translations: [Dysphagia, unspecified] Episodic Other gastrointestinal disorders (5 sources) Constipation, unspecified; Translations: [CONSTIPATION UNSPECIFIED] Onset: 08-17-2022 Episodic Other gastrointestinal disorders (3 sources) Dark stools 09-20-2022 Episodic Other gastrointestinal disorders (3 sources) Hard stool 09-20-2022 Episodic Other gastrointestinal disorders (5 sources) Dysphagia, unspecified; Translations: [Dysphagia, unspecified] Onset: 05-06-2023 Episodic Other gastrointestinal disorders (6 sources) Dysphagia; Translations: [Dysphagia, unspecified] 05-16-2023 Episodic Other gastrointestinal disorders (2 sources) Disorder of abdomen; Translations: [Peritoneal adhesions (postprocedural) (postinfection)] 04-26-2024 Episodic Other gastrointestinal disorders (2 sources) Peritoneal adhesions (postprocedural) (postinfection); Translations: [Peritoneal adhesions (postoperative) (postinfection)] 04-26-2024 Episodic Other injuries and conditions due to [...] Episodic Other lower respiratory disease (2 sources) Shortness of breath; Translations: [Shortness of Breath] Onset: 05-14-2024 Episodic Other lower respiratory disease (2 sources) [...] Chronic Other nutritional; endocrine; and metabolic disorders (2 sources) Obesity; Translations: [Obesity, unspecified] 08-17-2023 Chronic Other nutritional; endocrine; and metabolic disorders (11 sources) Body mass index 25-29 - overweight; Translations: [Overweight] 10-18-2019 Episodic Other nutritional; endocrine; and metabolic disorders (2 sources) Overweight; Translations: [Overweight] Onset: 02-15-2024 Episodic Other screening for suspected conditions (not mental disorders or infectious disease) (6 sources) Encounter for screening mammogram for malignant neoplasm of breast; Translations: [Raised cardiac enzyme or marker] Onset: 11-30-2022 Episodic Residual codes; unclassified (2 [...] TRACT] Onset: 11-30-2022 Episodic Residual codes; unclassified (2 sources) Other specified postprocedural states; Translations: [OTH SPECIFIED POSTPROCEDURAL STATES] Onset: 04-07-2022 Episodic Residual codes; unclassified (1 source) History of fundoplication; Translations: [Other specified postprocedural states] 07-14-2023 Episodic Residual codes; unclassified (1 source) Pain, unspecified; Translations: [Pain, unspecified] Onset: 12-01-2023 Episodic Residual codes; unclassified (2 sources) History of hernia repair; Translations: [Other specified postprocedural states] 08-17-2023 Episodic Screening and history of mental health and substance abuse codes (3 sources) Personal history of nicotine dependence; Translations: [PERSONAL HISTORY OF NICOTINE DEPEND] Onset: 11-30-2022 Episodic Spondylosis; intervertebral disc disorders; other back problems (3 sources) Backache 09-20-2022 Episodic Sprains and strains (14 sources) Low back strain; Translations: [Strain of [...] Asymptomatic microscopic hematuria 02-16-2024 Urinary tract infections (7 sources) Urinary tract infectious disease; Translations: [Urinary [...] W/OTHER HOT FLUIDS INITIAL] Onset: 08-23-2022 Episodic Other connective tissue disease (4 sources) Pain in right lower leg; Translations: [PAIN IN RIGHT LOWER LEG] Onset: 09-06-2022 Episodic Other gastrointestinal disorders (4 sources) Diarrhea, unspecified; Translations: [DIARRHEA UNSPECIFIED] Onset: 06-07-2022 Episodic Other upper respiratory infections (4 sources) [...] Test Name Value Interpretation Reference Range Facility Office Visiton 05-14-2024 Follow-up visit [id number] Marly Cardoso 1970 F Date Provider Department Center 05/14/2024 [id number] KINCAID MICHAEL [facility] Family History Problem Relation Age of Onset Heart attack Father Family Status - Relation Status Age at Father Level of Service:57804 [place] OFFICE/OUTPATIENT ESTABLISHED MOD MDM 30 MIN Reason for Visit and Comments: Hypertension [581197] - Patient here for 2 mo follow up. She was started on lisinopril 10mg daily at last visit. She presented to the ED last month for abdominal pain. EKG was done and showed bradycardia. Palpitations [845581] - Not as bad, still has them Shortness of Breath [] - Improving Normal [facility] [place] 05-11-2024 L Specimen: [id number] Received: 05/11/24 Status: XAVI Francis Num: [id number] Spec Type: Surgical Subm Dr: Jennie Ayon MD Tissues: A GASTRIC FOR HP (GASTRIC R/O H PYLORI) B Esophagus Biopsy (ESOPHAGUS BX R/O BARRETTS) Procedures: HE/4, Gross/Micro L4/2, H PYLORI Age/ Patient Sex Location Account Attending Physician Constantino Cardoso 53/F [id number] Jennie Ayon MD SPEC NUM: [id number] RECD: 05/11/24 STATUS: XAVI FRACNIS NUM: [id number] HAYDEN: 05/11/[address]: Jennie Ayon MD ENTERED: 05/11/[address] [facility] [address]: SPEC TYPE: Surgical DEPT: S ENTERED BY: [id number] RECV BY: [id number] ORDERED: HE/4, Gross/Micro L4/2, H PYLORI ORDERED: HE/4, Gross/Micro L4/2, H PYLORI Supplemental Report Addendum 2 Entered: 05/18/24 Supplemental to add CPT code of immunostain: A, CPT: 83925 Addendum Signed (signature on file) Robby Smyth MD 05/18/241707 Addendum 1 Entered: 05/18/24 Supplemental for findings of H. pylori immunostain: A, -H. pylori immunostain with appropriate control is negative for identified Helicobacter organism or infection Specimen: [id number] Received: 05/11/24 Status: XAVI Francis Num: [id number] Spec Type: Surgical Subm Dr: Jennie Ayon MD Tissues: A GASTRIC FOR HP (GASTRIC R/O H PYLORI) B Esophagus Biopsy (ESOPHAGUS BX R/O BARRETTS) Procedures: HE/4, Gross/Micro L4/2, H PYLORI Patient: Constantino Cardoso [id number] (Continued) Specimen: [id number] Received: 05/11/24 (Continued) Supplemental Report (Continued) Signed (signature on file) Robby Smyth MD 05/17/24 1326 Specimen: [id number] Received: 05/11/24 Status: XAVI Francis Num: [id number] Spec Type: Surgical Subm Dr: Jennie Ayon MD Tissues: A GASTRIC FOR HP (GASTRIC R/O H PYLORI) B Esophagus Biopsy (ESOPHAGUS BX R/O BARRETTS) Procedures: HE/4, Gross/Micro L4/2, H PYLORI Patient: Constantino Cardoso [id number] (Continued) Specimen: [id number] Received: 05/11/24 (Continued) Supplemental Report (Continued) Addendum Signed (signature on file) Robby Smyth MD 05/18/24 1703 Pathological Diagnosis A, gastric biopsy: -Antral and oxyntic mucosa with superimposed changes of mild chronic reactive gastropathy and minor inactive chronic gastritis, including occasionally admixed eosinophils in deeper stroma without other specific changes -Pending H. pylori immunostain to follow B, esophagus biopsy: -Squamocolumnar mucosa with mild features of chronic GERD, including occasionally admixed eosinophils in lamina propria, otherwise without glandular dysplasia or any other specific histo morphological changes observed Clinical Information Dysphagia Gross Description Part A is received in formalin with the patient's name and gastric and consists of 2 hager soft tissue fragment ranging in size from 0.2 and 0.3 cm. The specimen is entirely submitted in cassette A1. Part B is received in formalin with the patient's name and esophagus and consists of 3 hager-white soft tissue fragment ranging in size from 0.2 to 0.3 cm. The specimen is entirely submitted in cassette B1. Microscopic Description Microscopic examinations are performed supporting the above interpretation Specimen: [id number] Received: 05/11/24 Status: XAVI Francis Num: [id number] Spec Type: Surgical Subm Dr: Jennie Ayon MD Tissues: A GASTRIC FOR HP (GASTRIC R/O H PYLORI) B Esophagus Biopsy (ESOPHAGUS BX R/O BARRETTS) Procedures: HE/4, Gross/Micro L4/2, H PYLORI Patient: Constantino Cardoso [id number] (Continued) Specimen: [id number] Received: 05/11/24-1431 (Continued) Signed (signature on file) Robby Smyth MD 05/17/24 1326 Specimen: [id number] Rece (more content not included)... Normal [facility] Reminderson 04-09-2024 Reminders Reminders From: Ani Jackson To: EU - Administrative; Sent: 02/16/2024 09:54:18 EDT Show up: 03/05/2024 09:54:00 EDT Subject: Ambulatory Reminder Due Date/Time: 05/20/2024 09:54:00 EDT Reminder/Recall Patient needs scheduled for a 3 month f/u with AO in [facility] due back mid May. [facility] FOR PATIENT TO CALL AND SCHEDULE APPT Pt called back and scheduled appt. [facility] Office Visiton 03-19-2024 Follow-up visit [id number] Marly Cardoso 1970 F Date Provider Department Center 03/19/2024 80538-BBYVLCEDISON KINCAID Family History Problem Relation Age of Onset Heart attack Father Family Status - Relation Status Age at Father Level of Service:02384 AR OFFICE/OUTPATIENT ESTABLISHED MOD MDM 30 MIN Normal [facility] Coding Summary.on 02-25-2024 Coding Summary. JBQCQfqb90OHa8oXz+PG hlYWQ+P J5YOWPyC36cxVOadL3jB5ELIDzT KocpVRNJIOfKMzIygkKyAD6wbIV jZXJu IC8+ZK9aMDWlHdljhDEcg1X1uPP 8F04dti5tSGnqhNU5FXRwUqDtkg tna2frkQi8XTeyUlknOnFe FNJuhJ80RAF3xM18Ki58mGWcwIU ws2gipEf9WsObLXAbFGQ0sVanLS wlu5SfRONyK13ivYDdv6Q5 BPFsiOluyERfIjPovTQ3tW2rNQb hnnvwb6zuzzspBqt3co83uNHwi5 Z7uPM8X0OcbnP7WZQbcPLe KzlyqJTTdX6znyznd5maocbbPmT sDTWzMKn8OJf9AJKdeBqyKfOuAZ 87SCK4OIUjqnHcG2RxHTCb sWxdRyI4v2T5Xw7VM1SWUtkdA2U NTUFSWTwvdGQ+BL78kg28O4FpQi vmFci8FVMfBZM9zJP9vS7l QCSeECvix9L4nQH3I0VcwcIzze3 mf0jkQOBlHNgkE31jvMAve0M7PO OlwCX2UPLndAzgXcRmmP04 Oyc+XOOonLulq9JcWtehu6udz8b eeDz0KccxXAVeevQcaMcaDAQ1v8 UrPz1gWDIkmFF3aMC4dC8c WaMuDiC9BMzwA904NcUbmVKnQjj nF26lD4DdwTG+GHGoZev8AXAcgM ciHH1hN3XqPVVivdliiKLz vIucTZ3lMGDlynkjTDRejI2mPRI nQ0x5PhLjKnV4WHplG9ClSYSqmi ahGp44uY0uLqWpZjJ5LFom O2CjcvQ4YJKfhRAxGFnkWMX9P97 bj6F7DOSeCJDtNNF1dMD0bB6kjQ lnbjogbGVmdDsgdmVydGlj PFgdPQamG255YJAqySqvJeKkCKl uZyBEYXRlOiAgMDYvMjIvMjAyND wvdGQ+XCMyDNT7yUedOWUo kRZyDCjvKa3yuOxhmYkjXN7gSUI daimoBXIcaP8lHEJebRZqdApjNT 4qULSmbszsb993OqBdQAG3 MADewBXkF1UktE4eBlTtKGYdMSC wD7BirARiJOsrI620YMfuHyY1HJ XpvtBvD5ZjIHVuiLmhCcR4 i2Y8Qb6Sb0BojsdhH8FyaEHhTsJ lYkvdSTe1E6CgShvnhYX+PC90YW ZdHV22BBg6YVY5iFjuNQpj PVVrE3ZanQ0bKlNoYSNdHDDqUpj +PHRhYmxlIHdpZHRoPScxMDAlJy GqbSbuOH4sDx6tDTTbIRCm nPfihQXzKpIte5etPTAhEPupIP2 urMemK9JgqAL1PPHmn9f9No30U9 2fJ4LatRF+JJFqpIR3aMG1 qJ1jJkLyYoT6EDjjS181LaSanNO oPirxa2aho4kadRz0WkV8MPMjpj MvxPosICE4h5YvMl59M83k IHdpZHRoPSIxNSUiIHZhbGlnbj0 vmN2yBu2+YPTefII6mVV0zR3uVg TpKkS6GJzhX560IxRbdVFd Qptwx2any3feoQm8PgDbBJUppbS eiPcqQJP8o7JzZj13H4QlnAbfr8 WySgd2wl06tZBbk3K2oXX9 G3WuMIYehgotmKIbkMeaTT2dQYQ uvojsEUIqqK0cNIUtC0p6IoKiSv C2NYyvC5XfaeN1JIGzxNEr STZyqYMQjM4qsmlfo5rylckmQfV rHTVuJCq3KMc8KKKdsKxaSoXwCV G0DiS5IBR5hJJuxR0zeWqz pjwdpP9dNwu+BDO2oWGdkNXRQS1 lOjwvdGQ+DVPqODK6qTnoNYjfUG YasO3vISHnX9j4IyLuUjJ5 WVivS8NizkD7IEMrpGBpAOLjmXM OnZ2unvkmy7zmydnuDeSxDZFhKH w1GYk4GQSfgEsgFkAsBAF3 UnI2KBD3qOFkqX5hoXyqoyjnrP8 wOyc+UwdiwUsiUIR0ASx9W1ZaDi k1TELsvYvyED1stZArVGfi So4ftLblaWwzGP3sLVJowoswe28 9YuMaf5clMVEkfZAuWHvuKZF6W9 2ih5H9ZGGhTWQuSMP1iZL4 lA2nmOkiycyokVDubRmptjOlnGo kAXnzJZjaQ611UGJuiLosBtSoJD l6P9ZaKcg9CWBqeKvbDH7e mOYoKVvuTi7vkSgwqDcxVU5sNMQ efntyz751FdPmk1orJPBmzMKxKG mhWXS8Z45cx6U6VADtTIFb CJM5dTK3eB1ogGqodyyuoSMvrHg vmlXomAakRUjiVPkvP002XZJvbJ gjWuBjwNs7T3JaKrj5FDKl aSttOR7pgGKuBZxvOa2ehHamtBh vYM0aYTBsejmws351UwIhg5dbYG LrlTPzSDtmZQU8Z76op5S5 IJDhJOIcPRK5gKW0iE2kuUqrxbz gbGVmdDsgdmVydGljYWwtYWxpZ2 46IHRvcDsnPlBhdGllbnQg PBwfYQf7T1PrZfcxbSI+VG47NSY oBS26sVQweWFlu2gwmIh5MyJlXU CqWEH0fIxkBGcqp4XkPUQs U09ckYAbg6X2ETSvgUdvgQAoZwR qzFB3tP6tVLyocafje9yeiizoKy hva5kncc94fM30H94qIPzx UOAhRYUbWHJnBTNejPseqz2fqV1 wIi8+WXRqdYA4nGC0bE8aVITgFq D8KAhrI877OdZtkTZiVmnz g8tvz5ifoNm1WjN9XZOtnbIrfWj pHUV0e5YmLe57L60fYQcoYSAgPN XlNYZyNLRbiDrdpn0zvE4e Ii8+WENafJZ6oRE2cC5yKiHuPqY 5DMlyO304WhXagHRoCzinA31wF0 JvdXA+QOByDzw3GSQfnPzh DB7ykZTmRXchYr7eUHS7PhVvYdW fCEtiC9IwJWXqgwdzysnskUU2XL TwDEPmqQ16Sf8sbPnsFTFo zFLYzP7givdzs9kvvzsxCbSqVGA qZGl0ISt8NUEhiCwtIrOePFL1Wo Q4ZYH5nHOtxL4vdEmjpwlh cY4vQ0BeAWVuigfkOv58sD2rRmT fJcA1NBfpKfv+Z3IPINrbBKLKNW tYLQ1IVVAIXR05KS93eMRh a9V3aGQ6A1AfLPDgcryovpvdgJA 1JTGoFDHrrU17fFFoPZlbXp2ue0 Y1g760EJGeUDAfoA17To1d kPmnXDLjqSRPyG2oawapy3aizlg kGvWxIXXbJWq7SXf2DMIolEzqKt YgPVV5EvT8BOL5gLBplS7k cUusegipfV1kXgt+MDkvMjMvMTk 3MDwvdGQ+WNKlEJH0pJnuBUtzLT JqoQ2bXFLzM0t6NiKvEkI0 AXbsQ0NhKSBrthwkJd55aY1zNjS bHrT9ZZqdC0RqjoG3PPFesDUoXM zyFMJ7Y84wo6G2HRTeEQHx RQT5rTT0rX7bnKdxiouiqDIvoSc ktaUdyXpsENirKPdjL859YKZvyP yhHwIeRUihLSImLO56CI61 eMZmn6B9bVP2D0MjNZNeydcfpuh muNC9EZZnSKVufR12eZJnIPjjEe 1ga5T9w200TBXyBLOmwL25 Gy1mmXwzZCZxsUJVuC9dubkzn9r eeawfOaJoIBEtZSn3YMe2MIOxeA vcGlAiUPB1YmQ2SJB7gWAd uJ4xmHryhufblA2lDxg+RmVtYWx iKZ54IF93fCLez4V3zRN5T3IpVA TipcgmgkuzgIW0QEOhOOPi tK18yQUhYSalOg7rq7U1u659GYL bMDIwlG54Aq1alMdpQIEcjXMDjL 1qkiqax8pejgozFjTbKIAr DWz6ZFk5GDEkiRqjLqHpIIB8ZnC 3SKI9vJTuzD8rrErdywzyjO1pQw c+RDWxNVSnp9Gaa5FqBA04 RB40U2FvXnazjOVdhGD+PHRhYmx lIHdpZHRoPScxMDAlJyBzdHlsZT 8yHh4hZOLcFJLizOpvaHLl XgIre3ldYONtNAynTW2dsTkoW4I euIK7HNAhi3v2Xf87A70uK0VioG A+ZTJtdQF3iOK5pP4jZnIx XfF6VGajS042GuMswRJfXrqkv3c az6gozKi4EbIsIQYlpjZtdPuxQB T8q6NkYb46S17mVKotDTXc LNHfJTDpCMGyjTdfuq9qpU2qUt0 +XRUcnXU3vNZ2lP9vDwBfXjZ9BQ kmW794HoXtvIAwCvocS11p M1ZpbIO+EMIqQgn2MMLxqRjpCV2 xzBTsUOivBg8kGIH6JlOwChGwUR myK0LqRYKskdemktaygXV1 GXKaEUIrkI93Fo8vkTlvYs7yZYJ pIJO8BHNqyILgW7BnsD8gBxUeAV HpHWQpJ1YjhNUfWBkuA049 WNlnQcO8CJNofhLvS1JtOLTkzRu gOqQ0l2Q7Wl9GwOxgrMSuTM1sNi ZjZWx7Y7DgReu8ZZRmvXkt WW5kmYKaNZenAd3hgJzxaPioKS9 qOXLqvhlpr008BrUng5cqIIGmkQ LlFOzaHDS4Y92yf7X8WEBd LXIsMQJ1pFI1qX5vdZkgiqfnyHJ myAnscfAwxAlkZJloNChaC606DQ ThgRzzTeFYZyn4Q9AbYuj0 KLFduCjjXM5osOXnYVgbMk4boYd cdMvbCG2tAJGwgggpw793JkChw1 yhHMRdzZVjNIenXDA0C88q s5N1MRGuWVPvHQT2vLV9qG8smWw nbjogbGVmdDsgdmVydGljYWwtYW iyI939HDXxqOokAz6HOob8 S4OeKoi0ATQsrRkeNP5uySQzYEt vDd2clLfstHedPL2oWMQzkrfxs0 06QqHol3ycAQJyjXEzAVlb GTR1C04hz7J3ZFVzVYYdYDH7mON 1iV5jnWyfrdyzqRKrjSyypeWieQ xmEYprDTlfR764LFDfyMih PlBheWVyOjwvdGQ+PW93gr73G9G hKilmOpx0SGVpQNA7rFI2dM3yFT PbTNhfl0J2fOQ7R2FgdoUi mt7oa4lyZWSaA (more content not included)... Normal [facility] Patient Educationon 02-21-20 Patient Education Obstetrics and [...] this condition includes: ? Antibiotic medicine. ? Taqh-bng-dfgevid medicines to treat discomfort. ? Drinking enough [...] these instructions at home: Medicines ? Take qseo-srh-jwjupei and prescription medicines only as told by [...] Revie (more content not included)... Normal [facility] Urology Office/Clinic Noteon 02-21-2024 Urology Office/Clinic Note [...] with voice recognition artificial intelligence software, specifically [employer] and or [employer] Substitutions may have occurred due to the [...] yes avoids baths/hot tubs yes avoids scented DEVELOPMENT [employer] products yes urinates after sexual activity yes [...] of gross hematuria. Former smoker, quit in 2013 Discussed potential etiologies and implications of hematuria [...] of patients. (more content not included)... [facility] Comment on above: Result Comment: Elec tronically Signed By: RUDY Lou APRN, [place] X\.br\Date and Time Signed: 02/21/24 23:19 EDT C Urineon 02-18-2024 Bacteria identified Cx Nom (U) Microbiology PROCEDURE: Urine Culture [R1] SOURCE: U CleanCatch BODY SITE: COLLECTED DATE/TIME: 02/16/2024 10:01 EDT RECEIVED DATE/TIME: 02/16/2024 14:33 EDT START DATE/TIME: 02/16/2024 14:33 EDT FREE TEXT SOURCE: RUDY Lou APRN, RUDY Lou APRN, Yolanda Guerrero X FINAL REPORTS Final Report [] Verified [...] Locations R1: This test was performed at: [facility], [address] [place] [address], [address]- , [place], [facility] Comment on above: Performed By: #### 2 [id number] #### [facility] [address] [place] [address] Lab Reportson 02-17-2024 Lab Reports [id number]#1.00TIFF [facility] Lab Reports [id number]#1.00TIFF Normal [facility] Lab Reports [id number]#1.00TIFF Normal [facility] Lab Reports [id number]#1.00TIFF [facility] RAD - Ultrasound Reporton RAD - Ultrasound Report [id number]#1.00TIFF [facility] Screenson 02-17-2024 Screens [id number]#1.00TIFF [facility] URINALYSISOrdered By: SYSTEM SYSTEM on 02-16-2024 Bilirubin Ql (U) Negative Normal Negativemg/ dL [facility] [place] Auto SS Clarity (U) Clear (02/16/24 10:01 AM) Normal Clear [facility] [place] Auto SS Color (U) Light-Yellow 1 (02/16/24 10:01 AM) Normal Yellow [facility] Auto SS Comment on above: Interpretive Data: M icroscopic readings are only performed on those samples that meet specific criteria set forth by [facility]. Epithelial cells.squamous Auto (Urine sed) [#/Area] 0-2 graded/HPF Invalid Interpretation Code [facility] Auto SS Glucose Ql (U) Negative Normal Negativemg/ dL [facility]A Auto SS Hemoglobin Auto test strip [...] Desc Clean Catch (02/16/24 10:01 AM) Normal [facility] UA Auto SS Urinalysis with Microon 02-03 Bilirubin Ql (U) Negative Normal Negative [facility] Comment on above: Performed By: #### 4 [id number] #### [facility] [address] [place] [address] Clarity (U) Clear Normal Clear [facility] Comment on above: Performed By: #### 4 [id number] #### [facility] [address] [place] [address] Color (U) Light-Yellow Normal Yellow [facility] Comment on above: Result Comment: Micr oscopic readings are only performed on those samples that meet specific criteria set forth by [facility]. Performed By: #### 4 [id number] #### [facility] [address] [place] [address] Epithelial cells.squamous Auto (Urine sed) [#/Area] 0-2 Invalid Interpretation Code [facility] Comment on above: Performed By: #### 4 [id number] #### [facility] [address] [place] [address] Glucose Ql (U) Negative Normal Negative [facility] Comment on above: Performed By: #### 4 [id number] #### [facility] [address] [place] [address] Hemoglobin Auto test strip (U) [Mass/Vol] 1+ mg/dL Abnormal Negative [facility] Comment on above: Performed By: #### 4 [id number] #### [facility] [address] [place] [address] Ketones Auto test strip Ql (U) Negative Normal Negative [facility] Comment on above: Performed By: #### 4 [id number] #### [facility] [address] [place] [address] Leukocyte esterase Auto test strip Ql (U) 75 Morgan/uL Abnormal Negative [facility] Comment on above: Performed By: #### 4 [id number] #### [facility] [address] [place] [address] Mucus Auto Ql (U) Trace Normal Negative [facility] Comment on above: Performed By: #### 4 [id number] #### [facility] [address] [place] [address] Nitrite Auto test strip Ql (U) Negative Normal Negative [facility] Comment on above: Performed By: #### 4 [id number] #### [facility] [address] [place] [address] pH (U) 5.5 [pH] Invalid Interpretation Code 5.0-9.0 [facility] Comment on above: Performed By: #### 4 [id number] #### [facility] [address] [place] [address] Protein Ql (U) Negative Normal Negative [facility] Comment on above: Performed By: #### 4 [id number] #### [facility] [address] [place] [address] RBC Ql (U) 0-3 Normal 0-3 [facility] Comment on above: Performed By: #### 4 [id number] #### [facility] [address] [place] [address] Specific gravity (U) [Rel density] 1.021 Invalid Interpretation Code 1.005-1.030 [facility] Comment on above: Performed By: #### 4 [id number] #### [facility] [address] [place] [address] Urobilinogen (U) [Mass/Vol] Negative Normal Negative [facility] Comment on above: Performed By: #### 4 [id number] #### [facility] [address] [place] [address] WBC Auto (Urine sed) [#/Area] 0-5 Normal 0-5 [facility] Comment on above: Performed By: #### 4 [id number] #### [facility] [address] [place] [address] Type of Urine collection method Clean Catch [facility] Comment on above: Performed By: #### 4 [id number] #### [facility] [address] [place] [address] Office Visiton 02-15-2024 Follow-up visit [id number] Marly Cardoso 1970 F Date Provider Department Center 02/15/2024 16119-AUPNBREDISON KINCAID MICHA[facility] Family History Problem Relation Age of Onset Heart attack Father Family Status - Relation Status Age at Father Level of Service:42583 AR OFFICE/OUTPATIENT NEW MODERATE MDM 45 MINUTES Normal [facility] ANES POSTPROC EVALon 023 ANES POSTPROC EVAL HNO ID: [id number] Author: Carlota Jeffrey MD Service: ? 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 Author [...] August 25, 2023 TIME: 11:46 AM CSN: [id number] [facility] HISTORY PHYSICALon 3 HISTORY PHYSICAL HNO ID: [id number] Author: Gavi Bourgeois MD Service: General Surgery [...] DATE: August 25, 2023 TIME: 6:[address] [facility] NURSING PROGon 08-25-2023 NURSING PROG HNO ID: [id number] Author: Melody Walter RN Service: Nursing Author [...] Electronically Signed By: Melody Walter RN [facility] NURSING PROG HNO ID: [id number] Author: Pamela Osuna RN Service: ? Author [...] Pamela Navarro RN In Department: GASTROENTEROLOGY [facility] Magda 07-22-2023 CNPN Telephone (GENBMI) CONSTANTINO CARDOSO ([id number]) 1970 F Date Time Provider Department 07/22/23 [...] Status:Closed by EVELYN BLACK on 07/22/[address] [facility] ANES POSTPROC EVALon 023 ANES POSTPROC EVAL HNO ID: [id number] Author: Sly Carter MD Service: ? Author Type: Anesthesiologist Type: Anesthesia Postprocedure Evaluation Filed: 07/14/2023 12:26 PM Note Text: POST ANESTHESIA EVALUATION NOTE : 1970 Procedure Summary Date: 07/14/23 Room / Location: Gastroenterology Anesthesia Start: 1031 Anesthesia Stop: 1111 Procedure: EGD - THERAPEUTIC, EUS, OR TUBE INTERVENTIONS Diagnosis: Dysphagia, unspecified type Gastroparesis History of Pricilla fundoplication (Epigastric abdominal pain) Scheduled Providers: Marques Bradley MD; Amanda Bernard APRN.DAIRY MACHINE OPERATOR FARMWORKER; Sly Carter MD Responsible Provider: Sly Carter [...] July 14, 2023 TIME: 12:26 PM CSN: [id number] [facility] ANES PRE-OPon 07-14-2023 ANES PRE-OP HNO ID: [id number] Author: Sly Carter MD Service: ? Author Type: Anesthesiologist Type: Anesthesia Preprocedure Evaluation Filed: 07/14/2023 9:19 AM Note Text: ANESTHESIOLOGY DAY OF SURGERY NOTE : 1970 Procedure Information Date/Time: 07/14/23929 Scheduled providers: Marques Bradley MD; Amanda Bernard APRN.DAIRY MACHINE OPERATOR FARMWORKER; Sly Carter MD Procedure: EGD - THERAPEUTIC, [...] July 14, 2023 TIME: 9:11 AM CSN: [id number] [facility] EGD - THERAPEUTIC, EUS, OR T UBE INTERVENTIONSon 07-14-2023 [facility] HISTORY PHYSICALon HISTORY PHYSICAL HNO ID: [id number] Author: Raúl Quintero MD Service: General Surgery [...] medications for this visit. REVIEW OF SYSTEMS: EXHAUST TENDER: Negative for CVA, Negative for TIA Respiratory: [...] July 14, 2023 TIME: 9:[address] [facility] NURSING PROGon 07-14-2023 NURSING PROG HNO ID: [id number] Author: Mónica Spaulding RN Service: Nursing Author Type: Registered Nurse Type: Nursing Progress Note Filed: 07/14/2023 11:21 AM Note Text: 1121: Dr. Mehrdad Carter paged : Patient Constantino Cardoso in post bed 10: Complaining of 10/10 abdominal pain (gas), mild nausea. Any further orders? Thanks! Mari Spaulding RN BSN [facility] NURSING PROG HNO ID: [id number] Author: Mónica Spaulding RN Service: Nursing Author [...] Signed By: Mónica Spaulding RN BSN [facility] NURSING PROG HNO ID: [id number] Author: Candace Jaramillo RN Service: ? Author [...] Candace Jaramillo RN In Department: GASTROENTEROLOGY [facility] SURGICAL PATHOLOGYon 023 ADDENDUM 1: [facility] Comment on above: Order Comment: Speci men Type: TISSUE SPECIMENOrdering Facility: [facility] Address: [address] [place] [address] Result Comment: Give n the background of chronic gastritis a Helicobacter pylori immunostain was performed on block A and is negative for Helicobacter pylori organisms. AEB 07/20/2023 Laboratory Developed Test (LDT) Disclaimer: Performance characteristics of immunohistochemical, immunofluorescent and chromogenic in-situ hybridization tests have been determined by the performing laboratory within [facility]???s [facility] Laboratory Medicine Shock ([facility], [facility], [facility], [facility], [facility], [facility], or [facility]) in a manner consistent with CLIA [...] at 9:30 AM Performed By: #### S ####[facility] LABCLIA [id number] [place] [address] [place] CASE REPORT Normal [facility] Comment on above: Order Comment: Speci men Type: TISSUE SPECIMENOrdering Facility: [facility] Address: [address] [place] [address] Result Comment: [facility] Pathology Report Case: [id number] Authorizing Provider: Marques Bradley MD Collected: 07/14/2023 10:42 AM Ordering Location: Gastroenterology Received: 07/14/2023 07:34 PM Pathologist: Marilou Zacarias MD Specimen: STOMACH BIOPSY, R/O H.Pylori Performed By: #### S ####[facility] LABIA [id number] [address] [place] DIAGNOSIS COMMENT Immunohistochemical stain for Helicobacter pylori is pending and will be reported as an addendum. Normal [facility] Comment on above: Order Comment: Speci men Type: TISSUE SPECIMENOrdering Facility: [facility] Address: [address] [place] [address] Performed By: #### S ####[facility] LABIA [id number] [address] STATES OF [facility] FINAL DIAGNOSIS Normal [facility] Comment on above: Order Comment: Speci men Type: TISSUE SPECIMENOrdering Facility: [facility] Address: [address] [place] [address] Result Comment: Velma scott, biopsy: - Chronic inactive gastritis. See comment. AEB/dkm 07/18/2023 Performed By: #### S ####[facility] LABCLIA [id number] [address] [place] FINAL PERFORMING LAB Normal [facility] Comment on above: Order Comment: Speci men Type: TISSUE SPECIMENOrdering Facility: [facility] Address: [address] [place] [address] Result Comment: Diag nostic interpretation performed at [facility], [address] [place] [address] CLIA# [id number] [employer] Operator: Maurisio Ritchie M.D. Performed By: #### S ####[facility] LABCLIA [id number] [address] OF [facility] GROSS DESCRIPTION Normal [facility] Comment on above: Order Comment: Speci men Type: TISSUE SPECIMENOrdering Facility: [facility] Address: [address] [place] [address] Result Comment: A. S TOMACH BIOPSY Received in formalin are two pieces of hager, soft tissue aggregating to 0.5 x 0.2 x 0.2 cm. Totally submitted in one cassette. Two Gross examination performed at [facility], [address] [place] [address] KK July 14, 2023 11:10 PM Performed By: #### S ####[facility] LABCLIA [id number] [address] [place] Lipase Levelon 06-06-2023 Lipase [Catalytic activity/Vol] 33 U/L Normal 13-58 [facility] Comment on above: Performed By: #### [id number] #### [facility] [address] [place] [address] CNPAlayna 05-27-2023 CNPN Telephone ([employer]) CONSTANTINO CARDOSO ([id number]) 1970 F Date Time Provider Department 05/27/[facility] During your visit today, we recorded [...] Status:Closed by EVELYN BLACK on 05/27/23 Normal [facility] GASTRIC EMPTYING SOLIDon 05-26-2023 NM GASTRIC EMPTYING SOLID * * *Final Report* * * DATE OF EXAM: May 26 2023 11:11AM [facility] 0017 - [place] GASTRIC EMPTYING SOLID [...] RATE OF GASTRIC EMPTYING OF SOLID MEAL. Central Office Operator: MELINDA Transcribe Date/Time: May 26 2023 11:18A Dictated by : SILVANO WELSH MD This examination was interpreted and the report reviewed and electronically signed by: SILVANO WELSH MD on May 26 2023 11:18AM EST [id number] Normal [facility] CNNURSEon 05-25-2023 CNNURSE Nurse Visit (GASTMN) CONSTANTINO CARDOSO ([id number]) 1970 F Date Time Provider Department 05/25/23 8:30 AM NURSE GI LAB 2 GASTMN During your visit today, we recorded the following information about you: Pedro Gonzalez LPN 05/25/2023 4:15 PM Signed Name: Constantino Cardoso PSYCHIATRIC#: [id number] Date: 05/25/2023 ESOPHAGEAL MANOMETRY TEST Indication: Nausea [...] .Pedro Gonzalez LPN Referring Provider: MARQUES BRADLEY [[id number]] Allergies As of Date: 05/25/2023 Noted Allergy Reaction FLEXERIL (CYCLOBENZAPRINE) 04/28/2018 7 - Swelling PENICILLIN 04/28/2018 7 - Swelling Date Reviewed: 05/06/2023 Reviewed by: Judy Michaels MA - Fully Assessed Reason for Visit: Procedure [88] Cmt: Manometry Esophageal Visit Diagnosis:Nausea [R11.0] Order(s):MANOMETRY ESOPHAGEAL [77044JOA] Order #: [id number] Prescriptions as of 05/25/2023 - dicyclomine (BENTYL) [...] Encounter Status:Closed by PEDRO GONZALEZ on 05/25/23 [facility] Magda 05-16-2023 SHEILA Telephone ([employer]) CONSTANTINO CARDOSO ([id number]) 1970 F Date Time Provider Department 05/16/23 [...] Encounter Status:Closed by EVELYN BLACK on 05/16/[address] [facility] CNOVon 05-06-2023 CNOV Office Visit (GENBMI ) CONSTANTINO CARDOSO ([id number]) 1970 F Date Time Provider Department 05/06/23 [...] for internal providers or letter via the [employer] Postal Service for external providers. Chief Complaint: [...] Time: 8:15 AM Referring Provider: IMER CHERRY [[id number]] Allergies As of Date: 05/06/2023 Noted Allergy Reaction (more content not included)... Normal [facility] Magda 05-02-2023 CNPN Telephone (GENBMI) CONSTANTINO CARDOSO ([id number]) 1970 F Date Time Provider Department 05/02/23 EVELYN BLACK GENSONJAI During your visit today, we recorded the following information about you: Evelyn Black, RN 05/04/2023 1:55 PM Addendum BMI SPECIALTY CARE COORDINATION TELEPHONE ENCOUNTER Chief complaint AND duration dysphagia. Type of procedure: hernia repair hiatal with Dr. MORTENSEN in [place] February of 2019. Sending OP notes Nursing assessment (subjective/objective) . pain in chest area and getting worse, hard to breathe c/o nausea and oral intolerance, using miralax for BM Went to [facility] March 2023 who told her she needed a stent in her heart..but her c/o were difficulty swallowing and sent pt home and referred her to [facility] and was admitted for almost a week March 29 EGD [place] 26th with balloon dilation it has lasted about [...] HHR a year later @ OSH in [place] Recommendation: appt after records obtained, encouraged small [...] Encounter Status:Closed by EVELYN BLACK on 05/02/23 [facility] CONSTANTINO CARDOSO ([id number]) 1970 F Date Time Provider Department 04/26/23 [...] Status:Closed by [facility] Tele[facility] (GENBMI) CONSTANTINO CARDOSO ([id number]) 1970 F Date Time Provider Department 04/18/23 [...] Ma - Fully Assessed 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 Visit: 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 Albumin [Mass/volume] in Ser um or Plasma by Bromocresol green (BCG) dye binding methoOrdered By: Pete Thakkar on 03-23-2023 Albumin BCG dye [Mass/Vol] 4.1 g/dL 3.5-5.[address] [facility] Alkaline phosphatase [Enzyma tic activity/volume] in Serum or PlasmaOrdered By: Pete Thakkar on 03-23-2023 ALP [Catalytic activity/Vol] 115 U/L 34-[address] [facility] Aspartate aminotransferase [ Enzymatic activity/volume] in Serum or PlasmaOrdered By: Pete Thakkar on 03-23-2023 AST [Catalytic activity/Vol] 15 U/L 13-[address] [facility] Automated erythrocytes count in urine sediment (number/area)Ordered By: Pete Thakkar on 03-23-2023 RBC Auto (Urine sed) [#/Area] 0-1 [HPF] 0-[address] [facility] Automated leukocytes count i n urine sediment (number/area)Ordered By: Pete Thakkar on 03-23-2023 WBC Auto (Urine sed) [#/Area] 0-1 [HPF] 0-[address] [facility] Basophils Auto (Bld) [#/Vol] Ordered By: Pete Thakkar on 03-23-2023 Basophils (Bld) [#/Vol] 0.1 10*3/uL 0.0-0.[address] [facility] Basophils/100 WBC Auto (Bld) Ordered By: Pete Thakkar on 03-23-2023 Basophils/100 WBC (Bld) 1.0 % . [facility] Bilirubin Test strip Ql (U)O rdered By: Pete Thakkar on 03-23-2023 Bilirubin Ql (U) Negative Negative [facility] Bilirubin.direct [Mass/volum e] in Serum or PlasmaOrdered By: Pete Thakkar on 03-23-2023 Bilirubin.direct [Mass/Vol] 0.10 mg/dL 0.03-0.[address] [facility] Bilirubin.total [Mass/volume ] in Serum or PlasmaOrdered By: Pete Thakkar on 03-23-2023 Bilirubin [Mass/Vol] 0.3 mg/dL 0.3-1.0 [facility] Calcium [Mass/volume] in Ser um or PlasmaOrdered By: Pete Thakkar on 03-23-2023 Calcium [Mass/Vol] 9.0 mg/dL 8.6-10.3 [facility] Carbon dioxide, total [Moles /volume] in Serum or PlasmaOrdered By: Pete Thakkar on 03-23-2023 CO2 [Moles/Vol] 24.5 mmol/L 21.0-31.0 [facility] Chloride [Moles/volume] in S cristine or PlasmaOrdered By: Pete Thakkar on 03-23-2023 Chloride [Moles/Vol] 111 mmol/L 98-107 [facility] Color Auto (U)Ordered By: Shoaib Thakkar on 03-23-2023 Color (U) Yellow Yellow [facility] Creatinine [Mass/volume] in Serum or PlasmaOrdered By: Pete Thakkar on 03-23-2023 Creatinine [Mass/Vol] 0.72 mg/dL 0.60-1.20 [facility] Eosinophils Auto (Bld) [#/Vo l]Ordered By: Pete Thakkar on 03-23-2023 Eosinophils (Bld) [#/Vol] 0.3 10*3/uL 0.0-0.[address] [facility] Eosinophils/100 WBC Auto (Bl d)Ordered By: Pete Thakkar on 03-23-2023 Eosinophils/100 WBC (Bld) 5.0 % . [facility] Erythrocyte distribution wid th Auto (RBC) [Ratio]Ordered By: Pete Thakkar on 03-23-2023 Erythrocyte distribution width (RBC) [Ratio] 13.6 % 11.9-15.[address] [facility] Globulin Calc (S) [Mass/Vol] Ordered By: Pete Thakkar on 03-23-2023 Globulin (S) [Mass/Vol] 2.9 g/dL [facility] Glucose [Mass/volume] in Ser um or PlasmaOrdered By: Pete Thakkar on 03-23-2023 Glucose [Mass/Vol] 79 mg/dL 70-100 [facility] Comment on above: ADA recommended refe rence rangeRandom Glucose Reference Range is dependent on time and content of last meal. Glucose of more than 200 mg/dL in a nonstressed, ambulatory subject supports the diagnosis of Diabetes Mellitus. Hematocrit Auto (Bld) [Volum e fraction]Ordered By: Pete Thakkar on 03-23-2023 Hematocrit (Bld) [Volume fraction] 35.7 % 34.0-46.[address] [facility] Hemoglobin [Mass/volume] in BloodOrdered By: Pete Thakkar on 03-23-2023 Hemoglobin (Bld) [Mass/Vol] 12.0 g/dL 11.8-15.[address] [facility] Ketones Auto test strip (U) [Mass/Vol]Ordered By: Pete Thakkar on 03-23-2023 Ketones (U) [Mass/Vol] Negative Negative [facility] Laboratory - UrinalysisOrder ed By: Pete Thakkar on 03-23-2023 Hyaline casts LM Ql (Urine sed) None seen [LPF] 0-[address] [facility] Leukocytes [#/volume] correc jun for nucleated erythrocytes in Blood by Automated counOrdered By: Pete Thakkar on 03-23-2023 WBC corrected for nucl RBC Auto (Bld) [#/Vol] 6.3 10*3/uL 3.8-11.[address] [facility] Lipase [Enzymatic activity/v olume] in Serum or PlasmaOrdered By: Pete Thakkar on 03-23-2023 Lipase [Catalytic activity/Vol] 32.0 U/L 11.0-82.[address] [facility] Lymphocytes Auto (Bld) [#/Vo l]Ordered By: Pete Thakkar on 03-23-2023 Lymphocytes (Bld) [#/Vol] 2.3 10*3/uL 1.00-4.[address] [facility] Lymphocytes/100 WBC Auto (Bl d)Ordered By: Pete Thakkar on 03-23-2023 Lymphocytes/100 WBC (Bld) 36.1 % . [facility] MCH Auto (RBC) [Entitic mass ]Ordered By: Pete Thakkar on 03-23-2023 MCH (RBC) [Entitic mass] 29.2 pg 24.7-34.[address] [facility] MCHC Auto (RBC) [Mass/Vol]Or dered By: Pete Thakkar on 03-23-2023 MCHC (RBC) [Mass/Vol] 33.7 g/dL 32.0-35.0 [facility] MCV Auto (RBC) [Entitic vol] Ordered By: Pete Thakkar on 03-23-2023 MCV (RBC) [Entitic vol] 86.7 fL 80-[address] [facility] Monocyte distribution width [Entitic volume] in Blood by AutomatedOrdered By: Pete Thakkar on 03-23-2023 Monocyte distribution width Auto (Bld) [Entitic vol] 16.44 % 0.00-20.[address] [facility] Monocytes Auto (Bld) [#/Vol] Ordered By: Pete Thakkar on 03-23-2023 Monocytes (Bld) [#/Vol] 0.5 10*3/uL 0.0-0.[address] [facility] Monocytes/100 WBC Auto (Bld) Ordered By: Pete Thakkar on 03-23-2023 Monocytes/100 WBC (Bld) 7.7 % . [facility] Neutrophils Auto (Bld) [#/Vo l]Ordered By: Pete Thakkar on 03-23-2023 Neutrophils (Bld) [#/Vol] 3.2 10*3/uL 1.8-7.[address] [facility] Neutrophils/100 WBC Auto (Bl d)Ordered By: Pete Thakkar on 03-23-2023 Neutrophils/100 WBC (Bld) 50.2 % . [facility] Nitrite Test strip Ql (U)Ord ered By: Pete Thakkar on 03-23-2023 Nitrite Ql (U) Negative Negative [facility] No Panel InformationOrdered By: Pete Thakkar on 03-23-2023 Estimated GFR (CKD-EPI) > 60.0 mL/Min [facility] Creatinine Clearance (Chem 105.[address] [facility] Nucleated erythrocytes [Pres ence] in Blood by Automated countOrdered By: Pete Thakkar on 03-23-2023 Nucleated RBC Auto Ql (Bld) 0.1 /100{WBC} 0-0.[address] [facility] Platelet mean volume Auto (B ld) [Entitic vol]Ordered By: Pete Thakkar on 03-23-2023 Platelet mean volume (Bld) [Entitic vol] 7.6 fL 6.3-10.[address] [facility] Platelets Auto (Bld) [#/Vol] Ordered By: Pete Thakkar on 03-23-2023 Platelets (Bld) [#/Vol] 357 10*3/uL 150-[address] [facility] Potassium [Moles/volume] in Serum or PlasmaOrdered By: Pete Thakkar on 03-23-2023 Potassium [Moles/Vol] 3.6 mmol/L 3.5-5.1 [facility] Protein Auto test strip (U) [Mass/Vol]Ordered By: Pete Thakkar on 03-23-2023 Protein (U) [Mass/Vol] Negative Negative [facility] Protein [Mass/volume] in Ser um or PlasmaOrdered By: Pete Thakkar on 03-23-2023 Protein [Mass/Vol] 7.0 g/dL 6.4-8.9 [facility] RBC Auto (Bld) [#/Vol]Ordere d By: Pete Thakkar on 03-23-2023 RBC (Bld) [#/Vol] 4.12 10*6/uL 3.60-5.00 [facility] Serum or plasma albumin/glob ulin mass ratioOrdered By: Pete Thakkar on 03-23-2023 Albumin/Globulin [Mass ratio] 1.4 {ratio} [facility] Serum or plasma anion gap de terminationOrdered By: Pete Thakkar on 03-23-2023 Anion gap [Moles/Vol] 10.1 mmol/L 6.0-15.0 [facility] Serum or plasma non-glucuron idated bilirubin measurement (mass/volume)Ordered By: Pete Thakkar on 03-23-2023 Bilirubin.indirect [Mass/Vol] 0.2 mg/dL [facility] Sodium [Moles/volume] in Ser um or PlasmaOrdered By: Pete Thakkar on 03-23-2023 Sodium [Moles/Vol] 142 mmol/L 136-145 [facility] Specific gravity Auto test s trip (U) [Rel density]Ordered By: Pete Thakkar on 03-23-2023 Specific gravity (U) [Rel density] 1.048 1.001-1.[address] [facility] Squamous epithelial cells de tection in urine sediment by light microscopyOrdered By: Pete Thakkar on 03-23-2023 Epithelial cells.squamous LM Ql (Urine sed) None seen [HPF] 0-[address] [facility] Troponin I.cardiac [Mass/vol ume] in Serum or Plasma by Detection limit <= 0.01 ng/Ordered By: Pete Thakkar on 03-23-2023 Troponin I.cardiac DL <= 0.01 ng/mL [Mass/Vol] 12.2 pg/mL 0.0-15.[address] [facility] Urea nitrogen [Mass/volume] in Serum or PlasmaOrdered By: Pete Thakkar on 03-23-2023 Urea nitrogen [Mass/Vol] 24 mg/dL 7-[address] [facility] Urine bacteria detection by automated methodOrdered By: Pete Thakkar on 03-23-2023 Bacteria Auto Ql (U) 1+ None Seen [facility] Urine clarity by refractomet ry automatedOrdered By: Pete Thakkar on 03-23-2023 Clarity Refractometry automated (U) Clear Clear [facility] Urine glucose measurement by automated test strip (mass/volume)Ordered By: Pete Thakkar on 03-23-2023 Glucose Auto test strip (U) [Mass/Vol] Normal mg/dL Normal [facility] Urine hemoglobin detection b y automated test stripOrdered By: Pete Thakkar on 03-23-2023 Hemoglobin Auto test strip Ql (U) Trace Negative [facility] Urine leukocyte esterase det ection by automated test stripOrdered By: Pete Thakkar on 03-23-2023 Leukocyte esterase Auto test strip Ql (U) Negative Negative [facility] Urobilinogen Auto test strip (U) [Mass/Vol]Ordered By: Pete Thakkar on 03-23-2023 Urobilinogen (U) [Mass/Vol] Normal mg/dL Normal [facility] WBC Auto (Bld) [#/Vol]Ordere d By: Pete Thakkar on 03-23-2023 WBC (Bld) [#/Vol] 6.3 10*3/uL 3.8-11.6 [facility] pH Auto test strip (U)Ordere d By: Pete Thakkar on 03-23-2023 pH (U) 5.0 [pH] 5.0-9.[address] [facility] Activated partial thrombopla stin time (aPTT) in platelet poor plasma by coagulation aOrdered By: Conner Griffith on 02-15-2023 aPTT Coag (PPP) [Time] 37.0 s 25.1-36.[address] [facility] Alanine aminotransferase [En zymatic activity/volume] in Serum or PlasmaOrdered By: Conner Griffith on 02-15-2023 ALT [Catalytic activity/Vol] 13 U/L 7-[address] [facility] Albumin [Mass/volume] in Ser um or Plasma by Bromocresol green (BCG) dye binding methoOrdered By: Conner Griffith on 02-15-2023 Albumin BCG dye [Mass/Vol] 4.3 g/dL 3.5-5.[address] [facility] Alkaline phosphatase [Enzyma tic activity/volume] in Serum or PlasmaOrdered By: Conner Griffith on 02-15-2023 ALP [Catalytic activity/Vol] 124 U/L 34-[address] [facility] Aspartate aminotransferase [ Enzymatic activity/volume] in Serum or PlasmaOrdered By: Conner Griffith on 02-15-2023 AST [Catalytic activity/Vol] 15 U/L 13-[address] [facility] Basophils Auto (Bld) [#/Vol] Ordered By: Conner Griffith on 02-15-2023 Basophils (Bld) [#/Vol] 0.0 10*3/uL 0.0-0.[address] [facility] Basophils/100 WBC Auto (Bld) Ordered By: Conner Griffith on 02-15-2023 Basophils/100 WBC (Bld) 0.6 % . [facility] Bilirubin.direct [Mass/volum e] in Serum or PlasmaOrdered By: Conenr Griffith on 02-15-2023 Bilirubin.direct [Mass/Vol] 0.00 mg/dL 0.03-0.[address] [facility] Comment on above: If the DBIL is less than 0.1, IBIL is not able to becalculated. Bilirubin.total [Mass/volume ] in Serum or PlasmaOrdered By: Conner Griffith on 02-15-2023 Bilirubin [Mass/Vol] 0.4 mg/dL 0.3-1.0 [facility] Calcium [Mass/volume] in Ser um or PlasmaOrdered By: Conner Griffith on 02-15-2023 Calcium [Mass/Vol] 9.3 mg/dL 8.6-10.3 [facility] Carbon dioxide, total [Moles /volume] in Serum or PlasmaOrdered By: Conner Griffith on 02-15-2023 CO2 [Moles/Vol] 25.3 mmol/L 21.0-31.0 [facility] Chloride [Moles/volume] in S cristine or PlasmaOrdered By: Conner Griffith on 02-15-2023 Chloride [Moles/Vol] 106 mmol/L 98-107 [facility] Creatinine [Mass/volume] in Serum or PlasmaOrdered By: Conner Griffith on 02-15-2023 Creatinine [Mass/Vol] 0.77 mg/dL 0.60-1.20 [facility] Eosinophils Auto (Bld) [#/Vo l]Ordered By: Conner Griffith on 02-15-2023 Eosinophils (Bld) [#/Vol] 0.2 10*3/uL 0.0-0.[address] [facility] Eosinophils/100 WBC Auto (Bl d)Ordered By: Conner Griffith on 02-15-2023 Eosinophils/100 WBC (Bld) 4.0 % . [facility] Erythrocyte distribution wid th Auto (RBC) [Ratio]Ordered By: Conner Griffith on 02-15-2023 Erythrocyte distribution width (RBC) [Ratio] 13.5 % 11.9-15.[address] [facility] Globulin Calc (S) [Mass/Vol] Ordered By: Conner Griffith on 02-15-2023 Globulin (S) [Mass/Vol] 3.0 g/dL [facility] Glucose [Mass/volume] in Ser um or PlasmaOrdered By: Conner Griffith on 02-15-2023 Glucose [Mass/Vol] 94 mg/dL 70-100 [facility] Comment on above: ADA recommended refe rence rangeRandom Glucose Reference Range is dependent on time and content of last meal. Glucose of more than 200 mg/dL in a nonstressed, ambulatory subject supports the diagnosis of Diabetes Mellitus. Hematocrit Auto (Bld) [Volum e fraction]Ordered By: Conner Griffith on 02-15-2023 Hematocrit (Bld) [Volume fraction] 38.4 % 34.0-46.[address] [facility] Hemoglobin [Mass/volume] in BloodOrdered By: Conner Griffith on 02-15-2023 Hemoglobin (Bld) [Mass/Vol] 13.0 g/dL 11.8-15.[address] [facility] Laboratory - CoagulationOrde red By: Conner Griffith on 02-15-2023 PT Coag (PPP) [Time] 11.7 s 9.0-12.9 [facility] Leukocytes [#/volume] correc jun for nucleated erythrocytes in Blood by Automated counOrdered By: Conner Griffith on 02-15-2023 WBC corrected for nucl RBC Auto (Bld) [#/Vol] 5.2 10*3/uL 3.8-11.[address] [facility] Lipase [Enzymatic activity/v olume] in Serum or PlasmaOrdered By: Conner Griffith on 02-15-2023 Lipase [Catalytic activity/Vol] 19.0 U/L 11.0-82.[address] [facility] Lymphocytes Auto (Bld) [#/Vo l]Ordered By: Conner Griffith on 02-15-2023 Lymphocytes (Bld) [#/Vol] 1.8 10*3/uL 1.00-4.[address] [facility] Lymphocytes/100 WBC Auto (Bl d)Ordered By: Conner Griffith on 02-15-2023 Lymphocytes/100 WBC (Bld) 33.8 % . [facility] MCH Auto (RBC) [Entitic mass ]Ordered By: Conner Griffith on 02-15-2023 MCH (RBC) [Entitic mass] 29.4 pg 24.7-34.[address] [facility] MCHC Auto (RBC) [Mass/Vol]Or dered By: Conner Griffith on 02-15-2023 MCHC (RBC) [Mass/Vol] 33.8 g/dL 32.0-35.0 [facility] MCV Auto (RBC) [Entitic vol] Ordered By: Conner Griffith on 02-15-2023 MCV (RBC) [Entitic vol] 86.8 fL 80-[address] [facility] Monocyte distribution width [Entitic volume] in Blood by AutomatedOrdered By: Conner Griffith on 02-15-2023 Monocyte distribution width Auto (Bld) [Entitic vol] 18.21 % 0.00-20.[address] [facility] Monocytes Auto (Bld) [#/Vol] Ordered By: Conner Griffith on 02-15-2023 Monocytes (Bld) [#/Vol] 0.3 10*3/uL 0.0-0.[address] [facility] Monocytes/100 WBC Auto (Bld) Ordered By: Conner Griffith on 02-15-2023 Monocytes/100 WBC (Bld) 4.8 % . [facility] Neutrophils Auto (Bld) [#/Vo l]Ordered By: Conner Griffith on 02-15-2023 Neutrophils (Bld) [#/Vol] 3.0 10*3/uL 1.8-7.[address] [facility] Neutrophils/100 WBC Auto (Bl d)Ordered By: Conner Griffith on 02-15-2023 Neutrophils/100 WBC (Bld) 56.8 % . [facility] No Panel InformationOrdered By: Conner Griffith on 02-15-2023 Estimated GFR (CKD-EPI) > 60.0 mL/Min [facility] Creatinine Clearance (Chem 98.[address] [facility] Nucleated erythrocytes [Pres ence] in Blood by Automated countOrdered By: Conner Griffith on 02-15-2023 Nucleated RBC Auto Ql (Bld) 0.2 /100{WBC} 0-0.[address] [facility] Platelet mean volume Auto (B ld) [Entitic vol]Ordered By: Conner Griffith on 02-15-2023 Platelet mean volume (Bld) [Entitic vol] 7.3 fL 6.3-10.[address] [facility] Platelet poor plasma interna tional normalized ratio (INR) by coagulation assay (relatOrdered By: Conner Girffith on 02-15-2023 INR Coag (PPP) [Relative time] 1.0 {INR} [facility] Comment on above: INR Therapeutic Rang [...] (Bld) [#/Vol] 385 10*3/uL 150-[address] [facility] Potassium [Moles/volume] in Serum or PlasmaOrdered By: Conner Griffith on 02-15-2023 Potassium [Moles/Vol] 3.9 mmol/L 3.5-5.1 [facility] Protein [Mass/volume] in Ser um or PlasmaOrdered By: Conner Griffith on 02-15-2023 Protein [Mass/Vol] 7.3 g/dL 6.4-8.9 [facility] RBC Auto (Bld) [#/Vol]Ordere d By: Conner Griffith on 02-15-2023 RBC (Bld) [#/Vol] 4.43 10*6/uL 3.60-5.00 [facility] Serum or plasma albumin/glob ulin mass ratioOrdered By: Conner Griffith on 02-15-2023 Albumin/Globulin [Mass ratio] 1.4 {ratio} [facility] Serum or plasma anion gap de terminationOrdered By: Conner Griffith on 02-15-2023 Anion gap [Moles/Vol] 12.6 mmol/L 6.0-15.0 [facility] Serum or plasma non-glucuron idated bilirubin measurement (mass/volume)Ordered By: Conner Griffith on 02-15-2023 Bilirubin.indirect [Mass/Vol] 0.4 mg/dL [facility] Sodium [Moles/volume] in Ser um or PlasmaOrdered By: Conner Griffith on 02-15-2023 Sodium [Moles/Vol] 140 mmol/L 136-145 [facility] Urea nitrogen [Mass/volume] in Serum or PlasmaOrdered By: Conner Griffith on 02-15-2023 Urea nitrogen [Mass/Vol] 14 mg/dL 7-[address] [facility] WBC Auto (Bld) [#/Vol]Ordere d By: Conner Griffith on 02-15-2023 WBC (Bld) [#/Vol] 5.2 10*3/uL 3.8-11.6 [facility] MG MAMM SCREEN 3D MACARIO CADon 11-30-2022 MG MAMM SCREEN 3D MACARIO CAD Normal [facility] ER URINE PROFILEon Bilirubin Ql (U) Negative Normal NEGATIVE [facility] Comment on above: Performed By: #### E RUR ####[facility] [id number] [place], [place] [address]Dr. Tadeo Smyth Clarity (U) CLEAR Normal CLEAR [facility] Comment on above: Performed By: #### E RUR ####[facility] [id number] [place], [place] [address]Dr. Tadeo Smyth Color (U) YELLOW Normal YELLOW [facility] Comment on above: Performed By: #### E RUR ####[facility] [id number] [place], [place] [address]Dr. Tadeo Smyth ERUAHD A micrscopic examina tion will be performed if indicated. Normal [facility] Comment on above: Performed By: #### E RUR ####[facility] [id number] [place], [place] [address]Dr. Tadeo Smyth Glucose Ql (U) Negative Normal NEGATIVE [facility] Comment on above: Performed By: #### E RUR ####[facility] [id number] [place], [place] [address]Dr. Tadeo Smyth Hemoglobin Ql (U) TRACE-INTACT Abnormal NEGATIVE [facility] Comment on above: Performed By: #### E RUR ####[facility] Xtahufrqvk[address] [place] [address]Dr. Tadeo Smyth Ketones Ql (U) Negative Normal NEGATIVE [facility] Comment on above: Performed By: #### E RUR ####[facility] Dlmaeimpxc25[address] [place] [address]Dr. Tadeo Smyth LEUKOCYTES Negative Normal NEGATIVE [facility] Comment on above: Performed By: #### E RUR ####[facility] Adcdsqolet[address] [place], [place] [address]Dr. Tadeo Smyth Nitrite Ql (U) Negative Normal NEGATIVE [facility] Comment on above: Performed By: #### E RUR ####[facility] Hjviqyqovt[address] [place], [place] [address]Dr. Tadeo Smyth pH (U) 6.0 [pH] Normal 5-9 [facility] Comment on above: Performed By: #### E RUR ####[facility] Ufuihszjxi67[address] [place], [place] [address]Dr. Tadeo Smyth SPEC GRAVITY >=1.030 Abnormal 1.005-<=1.0 25 [facility] Comment on above: Performed By: #### E RUR ####[facility] Fwbpflbemd[address] [place], [place] [address]Dr. Tadeo Smyth UA PROTEIN Negative Normal NEGATIVE/ TRACE [facility] Comment on above: Performed By: #### E RUR ####[facility] Jjxlraujjt187[address] [place], [place] [address]Dr. Tadeo Smyth UR MICRO IND NOT INDICATED Normal [facility] Comment on above: Performed By: #### E RUR ####[facility] Lgikabvzjl108[address] [place], [place] [address]Dr. Tadeo Smyth Urobilinogen Qn (U) 0.2 {Benito'U}/dL Normal 0.2 - 1. 0 [facility] Comment on above: Performed By: #### E RUR ####[facility] Diizkcnffh3536[address] [place], [place] [address]Dr. Tadeo Haja XR ABD FLAT UP_PA Kasey 11-28 XR ABD FLAT UP_PA CH Normal [facility] AMYLASEon 11-27-2022 Amylase [Catalytic activity/Vol] 63 U/L Normal 25-115 [facility] Comment on above: Performed By: #### L ISABEL, VIJI, CMP ####[facility] Hknrdrtuxw[address] [place] [address]Dr. Tadeo Haja CBC AUTO DIFFon 11-27-2022 BASO # 0.0 103/ul Normal 0.0-0.1 [facility] Comment on above: Performed By: #### C BC ####[facility] Pyzxfhplrr8968[address] [place], [place] [address]Dr. Tadeo Smyth Basophils/100 WBC (Bld) 0.4 % Normal 0.2-2.0 [facility] Comment on above: Performed By: #### C BC ####[facility] Xuecjitrzu0280[address] [place], [place] [address]Dr. Tadeo Smyth EO # 0.2 103/ul Normal 0.0-0.7 [facility] Comment on above: Performed By: #### C BC ####[facility] Giqfokvatf8620[address] [place], [place] [address]Dr. Tadeo Smyth Eosinophils/100 WBC (Bld) 2.8 % Normal 0.9-7.0 [facility] Comment on above: Performed By: #### C BC ####[facility] Uezqhckxhm4654[address] [place], [place] [address]Dr. Tadeo Smyth Erythrocyte distribution width (RBC) [Ratio] 13.2 % Normal 11.0-15.0 [facility] Comment on above: Performed By: #### C BC ####[facility] Cjmaviasqa4640[address] [place], [place] [address]Dr. Tadeo Smyth Hematocrit (Bld) [Volume fraction] 42.6 % Normal 36.0-48.0 [facility] Comment on above: Performed By: #### C BC ####[facility] Tguodnykgu67[address] [place], [place] [address]Dr. Tadeo Smyth Hemoglobin (Bld) [Mass/Vol] 13.6 g/dL Normal 12.0-16.0 [facility] Comment on above: Performed By: #### C BC ####[facility] Jjiecsgbzq75[address] [place] [id number]. Tadeo Smyth IG # 0.02 10e3/ul Normal 0.00-0.03 [facility] Comment on above: Performed By: #### C BC ####[facility] Qsduyruzcc8168 [place] [id number]. Tadeo Smyth IG % 0.3 % Normal 0.0-0.5 [facility] Comment on above: Performed By: #### C BC ####[facility] Ryhmcbiezw1512 [place] [address]Dr. Tadeo Smyth LYMPH # 2.2 103/ul Normal 1.2-3.8 [facility] Comment on above: Performed By: #### C BC ####[facility] Qnqydjqozs5639 [place] [address]Dr. Tadeo Smyth Lymphocytes/100 WBC (Bld) 32.1 % Normal 20.5-60.0 [facility] Comment on above: Performed By: #### C BC ####[facility] Xgmljxbnzz9583 [place] [address]DrNeo Smyth MANUAL DIFF REQ NO Normal [facility] Comment on above: Performed By: #### C BC ####[facility] Zpxumavnqg9[address] [place] [address]Dr. Margotnicole Smyth MCH (RBC) [Entitic mass] 29.6 pg Normal 26.7-34.0 [facility] Comment on above: Performed By: #### C BC ####[facility] Ycqxcdyayw9574[address] [place], [place] [address]Dr. Margotnicole Smyth MCHC (RBC) [Mass/Vol] 31.9 g/dL Normal 29.9-35.2 [facility] Comment on above: Performed By: #### C BC ####[facility] Gkjmeoubzw8044 [place] [id number]. Tadeo Smyth MCV (RBC) [Entitic vol] 92.6 fL Normal 81.0-99.0 [facility] Comment on above: Performed By: #### C BC ####[facility] Ecguaoqofr4980 [place] [id number]. Tadeo Smyth MONO # 0.2 103/ul Critically low 0.3-0.8 [facility] Comment on above: Performed By: #### C BC ####[facility] Xruczbeebk4119 [place] [id number]. Tadeo Smyth Monocytes/100 WBC (Bld) 3.2 % Normal 1.7-12.0 [facility] Comment on above: Performed By: #### C BC ####[facility] Ushtdwlloo4143 [place] [id number]. Tadeo Smyth NEUT # 4.2 103/ul Normal 1.4-6.5 [facility] Comment on above: Performed By: #### C BC ####[facility] Tqrvngkmro198[address] [place], [place] [address]Dr. Tadeo Smyth Neutrophils/100 WBC (Bld) 61.2 % Normal 43.0-75.0 [facility] Comment on above: Performed By: #### C BC ####[facility] Sjfdypvqpp4870[address] [place], [place] [address]Dr. Tadeo Smyth Platelet mean volume (Bld) [Entitic vol] 9.0 fL Critically low 9.5-13.5 [facility] Comment on above: Performed By: #### C BC ####[facility] Bdnwbrxybn8812[address] [place], [place] [address]Dr. Tadeo Smyth PLT 392 103/ul Normal 150-450 [facility] Comment on above: Performed By: #### C BC ####[facility] Wpdhthkgxc[address] [place], [place] [address]Dr. Tadeo Smyth RBC 4.60 106/ul Normal 4.20-5.40 [facility] Comment on above: Performed By: #### C BC ####[facility] Vsosqunfcw[address] [place], [place] [address]Dr. Tadeo Smyth WBC 6.9 103/ul Normal 4.0-11.0 [facility] Comment on above: Performed By: #### C BC ####[facility] Biaiumaftg[address] [place] [address]Dr. Tadeo Smyth LIPASEon 11-27-2022 Lipase [Catalytic activity/Vol] 100.0 U/L Normal 73.0-393.0 [facility] Comment on above: Performed By: #### L VIJI HALL, CMP ####[facility] Tifzxsxjtl03[address] [place] [address]Dr. Tadeo Smyth PROF 14(COMP METB)on 023 Albumin [Mass/Vol] 3.5 g/dL Normal 3.4-5.0 [facility] Comment on above: Performed By: #### L VIJI HALL, CMP ####[facility] Hmbnswmwpk19[address] [place] [address]Dr. Tadeo Smyth Albumin/Globulin [Mass ratio] 0.9 {ratio} Normal [facility] Comment on above: Performed By: #### L VIJI HALL, CMP ####[facility] Qlpjbiuvso1629[address] [place], [place] [address]Dr. Tadeo Smyth ALP [Catalytic activity/Vol] 166 U/L Critically high 46-116 [facility] Comment on above: Performed By: #### L VIJI HALL, CMP ####[facility] Gkuubuxaba2107[address] [place], [place] [address]Dr. Tadeo Smyth ALT [Catalytic activity/Vol] 25 U/L Normal 14-59 [facility] Comment on above: Performed By: #### L VIJI HALL, CMP ####[facility] Cqkukbqrsw03[address] [place] [address]Dr. Tadeo Smyth Anion gap [Moles/Vol] 12.4 mmol/L Normal [facility] Comment on above: Performed By: #### L VIJI HALL, CMP ####[facility] Skganyjwvx3539 [place] [address]Dr. Tadeo Smyth AST [Catalytic activity/Vol] 18 U/L Normal 15-37 [facility] Comment on above: Performed By: #### L VIJI HALL, CMP ####[facility] Ppkjtfrgrt3534[address] [place], [place] [address]Dr. Tadeo Smyth Bilirubin [Mass/Vol] 0.3 mg/dL Normal 0.2-1.0 [facility] Comment on above: Performed By: #### L VIJI HALL, CMP ####[facility] Wtruauwqyz4035[address] [place], [place] [address]Dr. Tadeo Smyth Calcium [Mass/Vol] 9.1 mg/dL Normal 8.5-10.1 [facility] Comment on above: Performed By: #### L VIJI HALL, CMP ####[facility] Owrusnpsti8915[address] [place], [place] [address]Dr. Tadeo Smyth Chloride [Moles/Vol] 104 mmol/L Normal 98-107 [facility] Comment on above: Performed By: #### L VIJI HALL, CMP ####[facility] Vwuakdivwa340[address] [place], [place] [address]Dr. Tadeo Smyth CO2 [Moles/Vol] 25.0 mmol/L Normal 21.0-32.0 [facility] Comment on above: Performed By: #### L VIJI HALL, CMP ####[facility] Tazsznydxv5739[address] [place], [place] [address]Dr. Tadeo Smyth Creatinine [Mass/Vol] 0.87 mg/dL Normal 0.55-1.02 [facility] Comment on above: Performed By: #### L VIJI HALL, CMP ####[facility] Kxrdpibkog[address] [place], [place] [address]Dr. Tadeo Smyth EGFR-AF EGYPTIAN >60 Normal >=60 [facility] Comment on above: Performed By: #### L VIJI HALL, CMP ####[facility] Xlgrdeqllw8960[address] [place], [place] [address]Dr. Tadeo Smyth EGFR-NON AF EGYPTIAN >60 Normal >=60 [facility] Comment on above: Performed By: #### L VIJI AHLL, CMP ####[facility] Uwiopuurhi4723[address] [place], [place] [address]Dr. Tadeo Smyth Globulin (S) [Mass/Vol] 3.9 g/dL Normal [facility] Comment on above: Performed By: #### L VIJI HALL, CMP ####[facility] Tgbgkabmne2372 [place] [address]Dr. Tadeo Smyth Glucose [Mass/Vol] 169 mg/dL Critically high 74-106 [facility] Comment on above: Performed By: #### L IPA, VIJI, CMP ####[facility] Cksqwcjchc1[address] [place] [address]Dr. Tadeo Smyth Potassium [Moles/Vol] 3.4 mmol/L Critically low 3.5-5.1 [facility] Comment on above: Performed By: #### L IPA, VIJI, CMP ####[facility] Fduudpzpfk5988[address] [place], [place] [address]Dr. Tadeo Smyth Protein [Mass/Vol] 7.4 g/dL Normal 6.4-8.2 [facility] Comment on above: Performed By: #### L IPA, VIJI, CMP ####[facility] Rikrodvzdz8[address] [place], [place] [address]Dr. Tadeo Smyth Sodium [Moles/Vol] 138 mmol/L Normal 136-145 [facility] Comment on above: Performed By: #### L IPA, VIJI, CMP ####[facility] Acgdvekpms9664[address] [place], [place] [address]Dr. Tadeo Smyth Urea nitrogen [Mass/Vol] 23.0 mg/dL Critically high 7.0-18.0 [facility] Comment on above: Performed By: #### L IPA, VIJI, CMP ####[facility] Cnmipyktbh5585[address] [place], [place] [address]Dr. Tadeo Smyth Urea nitrogen/Creatinine [Mass ratio] 26.4 mg/mg Normal [facility] Comment on above: Performed By: #### L IPA, VIJI, CMP ####[facility] Vloxeeeihb2364[address] [place], [place] [address]Dr. Tadeo Smyth AMYLASEon 11-02-2022 Amylase [Catalytic activity/Vol] 40 U/L Normal 25-115 [facility] Comment on above: Performed By: #### L IPA, MG, CMP, VIJI ####[facility] Oimdhrirwn0980[address] [place], [place] [address]Dr. Tadeo Smyth CBC AUTO DIFFon 11-02-2022 BASO # 0.0 103/ul Normal 0.0-0.1 [facility] Comment on above: Performed By: #### C BC ####[facility] Ivkookrtzt7820 [place] [address]DrNeo Smyth Basophils/100 WBC (Bld) 0.5 % Normal 0.2-2.0 [facility] Comment on above: Performed By: #### C BC ####[facility] Hadbrqgudu408[address] [place], [place] [address]DrNeo Smyth EO # 0.1 103/ul Normal 0.0-0.7 [facility] Comment on above: Performed By: #### C BC ####[facility] Zbxztuucyq04[address] [place], [place] [address]DrNeo Smyth Eosinophils/100 WBC (Bld) 2.8 % Normal 0.9-7.0 [facility] Comment on above: Performed By: #### C BC ####[facility] Xtcqbysneb9427[address] [place], [place] [address]Dr. Tadeo Smyth Erythrocyte distribution width (RBC) [Ratio] 13.3 % Normal 11.0-15.0 [facility] Comment on above: Performed By: #### C BC ####[facility] Wxdsajkuld7134[address] [place], [place] [address]DrNeo Smyth Hematocrit (Bld) [Volume fraction] 35.6 % Critically low 36.0-48.0 [facility] Comment on above: Performed By: #### C BC ####[facility] Pmggjgsqat6[address] [place], [place] [address]DrNeo Smyth Hemoglobin (Bld) [Mass/Vol] 11.3 g/dL Critically low 12.0-16.0 [facility] Comment on above: Performed By: #### C BC ####[facility] Udtwvnxyom[address] [place], [place] [address]DrNeo Smyth IG # 0.01 10e3/ul Normal 0.00-0.03 [facility] Comment on above: Performed By: #### C BC ####[facility] Zyczuixuyp2422[address] [place], [place] [address]Dr. Tadeo Smyth IG % 0.2 % Normal 0.0-0.5 [facility] Comment on above: Performed By: #### C BC ####[facility] Yilgpmuoim3213 [place] [address]DrNeo Smyth LYMPH # 1.5 103/ul Normal 1.2-3.8 [facility] Comment on above: Performed By: #### C BC ####[facility] Hlsyqlvtqb6804 [place] [address]DrNeo Smyth Lymphocytes/100 WBC (Bld) 34.9 % Normal 20.5-60.0 [facility] Comment on above: Performed By: #### C BC ####[facility] Owofhszmof646[address] [place], [place] [address]DrNeo Smyth MANUAL DIFF REQ NO Normal [facility] Comment on above: Performed By: #### C BC ####[facility] Gyspcpnisk7234 [place] [address]DrNeo Smyth MCH (RBC) [Entitic mass] 28.8 pg Normal 26.7-34.0 [facility] Comment on above: Performed By: #### C BC ####[facility] Ztdgpbsdzl69027[address] [place], [place] [address]DrNeo Smyth MCHC (RBC) [Mass/Vol] 31.7 g/dL Normal 29.9-35.2 [facility] Comment on above: Performed By: #### C BC ####[facility] Mimtmqrosg8117[address] [place], [place] [address]DrNeo Smyth MCV (RBC) [Entitic vol] 90.8 fL Normal 81.0-99.0 [facility] Comment on above: Performed By: #### C BC ####[facility] Vghiqnhsbh8332[address] [place], [place] [address]DrNeo Smyth MONO # 0.3 103/ul Normal 0.3-0.8 [facility] Comment on above: Performed By: #### C BC ####[facility] Mjiakvmcjd3287[address] [place], [place] [address]DrNeo Smyth Monocytes/100 WBC (Bld) 6.9 % Normal 1.7-12.0 [facility] Comment on above: Performed By: #### C BC ####[facility] Hlzmmmfkra14[address] [place] [address]Dr. Tadeo Smyth NEUT # 2.4 103/ul Normal 1.4-6.5 [facility] Comment on above: Performed By: #### C BC ####[facility] Enctizjche17[address] [place] [address]Dr. Tadeo Smyth Neutrophils/100 WBC (Bld) 54.7 % Normal 43.0-75.0 [facility] Comment on above: Performed By: #### C BC ####[facility] Laektimppr6114[address] [place], [place] [address]Dr. Tadeo Smyth Platelet mean volume (Bld) [Entitic vol] 8.9 fL Critically low 9.5-13.5 [facility] Comment on above: Performed By: #### C BC ####[facility] Rkstlxfrwb6727[address] [place], [place] [address]Dr. Tadeo Smyth PLT 316 103/ul Normal 150-450 [facility] Comment on above: Performed By: #### C BC ####[facility] Rmiurcalpy[address] [place], [place] [address]Dr. Tadeo Smyth RBC 3.92 106/ul Critically low 4.20-5.40 [facility] Comment on above: Performed By: #### C BC ####[facility] Gxqzgfkdtq27[address] [place], [place] [address]Dr. Tadeo Smyth WBC 4.4 103/ul Normal 4.0-11.0 [facility] Comment on above: Performed By: #### C BC ####[facility] Ohonjlyynr24[address] [place], [place] [address]Dr. Tadeo Smyth H PYLORI ANTIBODY IGGon - H. PYLORI IGG ABS 0.12 Index Value Normal 0.00-0.79 [facility] Comment on above: Result Comment: Nega tive <0.80 Equivocal 0.80 - 0.89 Positive >0.89 Performed By: #### H PYLLC ####[facility] Xxblwyphot2844 [place] [address]Dr. Tadeo Smyth LIPASEon 11-02-2022 Lipase [Catalytic activity/Vol] 58.0 U/L Critically low 73.0-393.0 [facility] Comment on above: Performed By: #### L IPA, MG, CMP, VIJI ####[facility] Dpdiuvuxup4582 [place] [address]Dr. Tadeo Smyth MAGNESIUMon 11-02-2022 Magnesium [Mass/Vol] 1.8 mg/dL Normal 1.8-2.4 [facility] Comment on above: Performed By: #### L IPA, MG, CMP, VIJI ####[facility] Blivvazrcv0[address] [place] [address]Dr. Tadeo Smyth PROF 14(COMP METB)on 023 Albumin [Mass/Vol] 3.2 g/dL Critically low 3.4-5.0 [facility] Comment on above: Performed By: #### L IPA, MG, CMP, VIJI ####[facility] Znabivkyqk2368 [place] [address]Dr. Tadeo Smyth Albumin/Globulin [Mass ratio] 1.0 {ratio} Normal [facility] Comment on above: Performed By: #### L IPA, MG, CMP, VIJI ####[facility] Ddofkoqrpg7974 [place] [address]Dr. Tadeo Smyth ALP [Catalytic activity/Vol] 138 U/L Critically high 46-116 [facility] Comment on above: Performed By: #### L IPA, MG, CMP, VIJI ####[facility] Aieotptpxp0053 [place] [address]Dr. Tadeo Smyth ALT [Catalytic activity/Vol] 22 U/L Normal 14-59 [facility] Comment on above: Performed By: #### L IPA, MG, CMP, VIJI ####[facility] Gsfszdhudw9678 [place] [address]Dr. Tadeo Smyth Anion gap [Moles/Vol] 10.0 mmol/L Normal [facility] Comment on above: Performed By: #### L IPA, MG, CMP, VIJI ####[facility] Ixglglsiqp6496 [place] [address]Dr. Tadeo Smyth AST [Catalytic activity/Vol] 18 U/L Normal 15-37 [facility] Comment on above: Performed By: #### L IPA, MG, CMP, VIJI ####[facility] Wtjeyuzsep0976 [place] [address]Dr. Tadeo Smyth Bilirubin [Mass/Vol] 0.5 mg/dL Normal 0.2-1.0 [facility] Comment on above: Performed By: #### L IPA, MG, CMP, VIJI ####[facility] Awfnknyceq6535[address] [place], [place] [address]Dr. Tadeo Smyth Calcium [Mass/Vol] 8.9 mg/dL Normal 8.5-10.1 [facility] Comment on above: Performed By: #### L IPA, MG, CMP, VIJI ####[facility] Jrngqwnyum[address] [place], [place] [address]Dr. Tadeo Smyth Chloride [Moles/Vol] 107 mmol/L Normal 98-107 [facility] Comment on above: Performed By: #### L IPA, MG, CMP, VIJI ####[facility] Damtjrqiir87[address] [place], [place] [address]Dr. Tadeo Smyth CO2 [Moles/Vol] 28.8 mmol/L Normal 21.0-32.0 [facility] Comment on above: Performed By: #### L IPA, MG, CMP, VIJI ####[facility] Rjpoituwtg25[address] [place], [place] [address]Dr. Tadeo Smyth Creatinine [Mass/Vol] 0.74 mg/dL Normal 0.55-1.02 [facility] Comment on above: Performed By: #### L IPA, MG, CMP, VIJI ####[facility] Nasmboksww[address] [place], [place] [address]Dr. Tadeo Smyth EGFR-AF EGYPTIAN >60 Normal >=60 [facility] Comment on above: Performed By: #### L IPA, MG, CMP, VIJI ####[facility] Avmiewhyck[address] [place], [place] [address]Dr. Tadeo Smyth EGFR-NON AF EGYPTIAN >60 Normal >=60 [facility] Comment on above: Performed By: #### L IPA, MG, CMP, VIJI ####[facility] Xkkuinloxe7626 [place] [address]Dr. Tadeo Smyth Globulin (S) [Mass/Vol] 3.3 g/dL Normal [facility] Comment on above: Performed By: #### L IPA, MG, CMP, VIJI ####[facility] Kkdcamcuhs44[address] [place] [address]Dr. Tadeo Smyth Glucose [Mass/Vol] 96 mg/dL Normal 74-106 [facility] Comment on above: Performed By: #### L IPA, MG, CMP, VIJI ####[facility] Iiockmzfui3835 [place] [address]Dr. Tadeo Smyth Potassium [Moles/Vol] 3.8 mmol/L Normal 3.5-5.1 [facility] Comment on above: Performed By: #### L IPA, MG, CMP, VIJI ####[facility] Xiwbcrouth[address] [place], [place] [address]Dr. Tadeo Smyth Protein [Mass/Vol] 6.5 g/dL Normal 6.4-8.2 [facility] Comment on above: Performed By: #### L IPA, MG, CMP, VIJI ####[facility] [address] [place] [address]Dr. Tadeo Smyth Sodium [Moles/Vol] 142 mmol/L Normal 136-145 [facility] Comment on above: Performed By: #### L IPA, MG, CMP, VIJI ####[facility] Oxugweyxed[address] [place] [address]Dr. Tadeo Smyth Urea nitrogen [Mass/Vol] 8.0 mg/dL Normal 7.0-18.0 [facility] Comment on above: Performed By: #### L IPA, MG, CMP, VIJI ####[facility] Cvsmniqexk[address] [place] [address]Dr. Tadeo Smyth Urea nitrogen/Creatinine [Mass ratio] 10.8 mg/mg Normal [facility] Comment on above: Performed By: #### L IPA, MG, CMP, VIJI ####[facility] Honyomefyu[address] [place] [address]Dr. Tadeo Smyth AMMONIAon 11-01-2022 Ammonia (P) [Moles/Vol] 18 umol/L Normal 11-32 [facility] Comment on above: Performed By: #### A MM ####[facility] Zatdsxenay[address] [place], [place] [address]Dr. Tadeo Haja AMYLASEon 11-01-2022 Amylase [Catalytic activity/Vol] 43 U/L Normal 25-115 [facility] Comment on above: Performed By: #### M G, VIJI, LIPA, CMP ####[facility] Ukujithrdu[address] [place], [place] [address]Dr. Margotnicole Smyth CBC AUTO DIFFon 11-01-2022 BASO # 0.0 103/ul Normal 0.0-0.1 [facility] Comment on above: Performed By: #### C BC ####[facility] Nxfgzvxui[address] [place], [place] [address]Dr. Tadeo Smyth Basophils/100 WBC (Bld) 0.6 % Normal 0.2-2.0 [facility] Comment on above: Performed By: #### C BC ####[facility] Pjnxjyarpo[address] [place], [place] [address]Dr. Tadeo Smyth EO # 0.1 103/ul Normal 0.0-0.7 [facility] Comment on above: Performed By: #### C BC ####[facility] Mrbpsdfolj369[address] [place], [place] [address]Dr. Tadeo Smyth Eosinophils/100 WBC (Bld) 1.5 % Normal 0.9-7.0 [facility] Comment on above: Performed By: #### C BC ####[facility] Yhshvfdlnz4[address] [place], [place] [address]Dr. Tadeo Smyth Erythrocyte distribution width (RBC) [Ratio] 13.5 % Normal 11.0-15.0 [facility] Comment on above: Performed By: #### C BC ####[facility] Isgtahlmbo[address] [place], [place] [address]Dr. Tadeo Smyth Hematocrit (Bld) [Volume fraction] 37.7 % Normal 36.0-48.0 [facility] Comment on above: Performed By: #### C BC ####[facility] Pggmkxtcwu[address] [place] [address]Dr. Margotnicole Smyth Hemoglobin (Bld) [Mass/Vol] 12.5 g/dL Normal 12.0-16.0 [facility] Comment on above: Performed By: #### C BC ####[facility] Xyqcgmmvtt[address] [place], [place] [address]Dr. Tadeo Smyth IG # 0.02 10e3/ul Normal 0.00-0.03 [facility] Comment on above: Performed By: #### C BC ####[facility] Ljncyrwvum[address] [place], [place] [address]Dr. Tadeo Smyth IG % 0.4 % Normal 0.0-0.5 [facility] Comment on above: Performed By: #### C BC ####[facility] Xuuzvcrrdi3[address] [place], [place] [address]Dr. Tadeo Smyth LYMPH # 1.3 103/ul Normal 1.2-3.8 [facility] Comment on above: Performed By: #### C BC ####[facility] Ynzrndjfvw[address] [place], [place] [address]Dr. Tadeo Smyth Lymphocytes/100 WBC (Bld) 23.9 % Normal 20.5-60.0 [facility] Comment on above: Performed By: #### C BC ####[facility] Wdxyoyiblk13[address] [place], [place] [address]Dr. Tadeo Smyth MANUAL DIFF REQ NO Normal [facility] Comment on above: Performed By: #### C BC ####[facility] Ntkfndkmow[address] [place], [place] [address]Dr. Tadeo Smyth MCH (RBC) [Entitic mass] 29.8 pg Normal 26.7-34.0 [facility] Comment on above: Performed By: #### C BC ####[facility] Ovqaczwnhf[address] [place], [place] [address]Dr. Tadeo Smyth MCHC (RBC) [Mass/Vol] 33.2 g/dL Normal 29.9-35.2 [facility] Comment on above: Performed By: #### C BC ####[facility] Bzfhgcpinu[address] [place] [address]DrNeo Smyth MCV (RBC) [Entitic vol] 89.8 fL Normal 81.0-99.0 [facility] Comment on above: Performed By: #### C BC ####[facility] Gtihksadqa[address] [place], [place] [address]DrNeo Smyth MONO # 0.3 103/ul Normal 0.3-0.8 [facility] Comment on above: Performed By: #### C BC ####[facility] Riexngxuyh[address] [place], [place] [address]DrNeo Smyth Monocytes/100 WBC (Bld) 5.2 % Normal 1.7-12.0 [facility] Comment on above: Performed By: #### C BC ####[facility] Hnifkrlxpf[address] [place], [place] [address]DrNeo Smyth NEUT # 3.6 103/ul Normal 1.4-6.5 [facility] Comment on above: Performed By: #### C BC ####[facility] Psiijfucxw[address] [place], [place] [address]DrNeo Smyth Neutrophils/100 WBC (Bld) 68.4 % Normal 43.0-75.0 [facility] Comment on above: Performed By: #### C BC ####[facility] Uoyiacxben[address] [place], [place] [address]DrNeo Smyth Platelet mean volume (Bld) [Entitic vol] 9.0 fL Critically low 9.5-13.5 [facility] Comment on above: Performed By: #### C BC ####[facility] Oapfgwtfxh[address] [place], [place] [address]DrNeo Smyth PLT 356 103/ul Normal 150-450 [facility] Comment on above: Performed By: #### C BC ####[facility] Eymdxmvkgq3513[address] [place], [place] [address]DrNeo Smyth RBC 4.20 106/ul Normal 4.20-5.40 [facility] Comment on above: Performed By: #### C BC ####[facility] [address]hk[address] [place] [address]Dr. Tadeo Smyth WBC 5.2 103/ul Normal 4.0-11.0 [facility] Comment on above: Performed By: #### C BC ####[facility] Nwwcp[address]vcx[address] [place] [address]Dr. Tadeo Smy[address] CT ABD/PELV W CONon 11-01-[address] ABD/PELV W CON Normal [facility] CULTURE BLOODon 11-01-2022 Microscopic examination of blood, culture Culture Observations: NO GROWTH AT 5 DAYS. Isolate 1 BC_BA_NA Normal [facility] Comment on above: Performed By: #### B LDCX2 ####[facility] Z[address]xexqsy[address] [place], [place] [address]Dr. Tadeo Smyth Performed By: #### B LDCX1 ####[facility] Hfqbrwvuie[address] [place], [place] [address]Dr. Tadeo Smyth CULTURE URINEon 11-01-2022 CULTURE URINE Culture Observations : LIGHT GROWTH OF MIXED GENITAL SINTIA. NO POTENTIAL PATHOGENS SEEN. Normal [facility] Comment on above: Performed By: #### U RCX ####[facility] C[address]qisefmio[address] [place], [place] [address]Dr. Tadeo Smyth Covid-19 PCR (CVDTB)on 10-07 SARS-CoV-2 (COVID-19) RNA CHEN+probe Ql (Unsp spec) Not detected Normal NOT DETECTED [facility] Comment on above: Result Comment: When [...] for this test is supported by the [place] of Health and Human Service's declaration that [...] be used). Performed By: #### C VDTBH ####[facility] Lnfxzewrgd[address] [place], [place] [address]Dr. Tadeo Smyth LACTATE/LACTIC ACIDon 2022 Lactate [Moles/Vol] 0.7 mmol/L Normal 0.4-1.9 [facility] Comment on above: Performed By: #### L ACT ####[facility] Qbesouaaob[address] [place], [place] [address]Dr. Tadeo Smyth LIPASEon 11-01-2022 Lipase [Catalytic activity/Vol] 58.0 U/L Critically low 73.0-393.0 [facility] Comment on above: Performed By: #### M VIJI Botello, LIPA, CMP ####[facility] Orqtlvugst[address] [place], [place] [address]Dr. Tadeo Smyth MAGNESIUMon 11-01-2022 Magnesium [Mass/Vol] 2.0 mg/dL Normal 1.8-2.4 [facility] Comment on above: Performed By: #### M Ayan VIJI, LIPA, CMP ####[facility] Pbwqeuajms[address] [place], [place] [address]Dr. Tadeo Smyth PROF 14(COMP METB)on 023 Albumin [Mass/Vol] 3.6 g/dL Normal 3.4-5.0 [facility] Comment on above: Performed By: #### M Ayan VIJI, LIPA, CMP ####[facility] Tqro[address] [place], [place] [address]Dr. Tadeo Smyth Albumin/Globulin [Mass ratio] 1.0 {ratio} Normal [facility] Comment on above: Performed By: #### M Ayan VIJI, LIPA, CMP ####[facility] Jxreftaiwd[address] [place], [place] [address]Dr. Tadeo Smyth ALP [Catalytic activity/Vol] 164 U/L Critically high 46-116 [facility] Comment on above: Performed By: #### M Ayan, VIJI, LIPA, CMP ####[facility] Ybicimspyh[address] [place] [address]Dr. Tadeo Smyth ALT [Catalytic activity/Vol] 22 U/L Normal 14-59 [facility] Comment on above: Performed By: #### Hanna Botello, VIJI, LIPA, CMP ####[facility] Hzoimdneap[address] [place] [address]Dr. Tadeo Smyth Anion gap [Moles/Vol] 11.5 mmol/L Normal Th e [facility] Comment on above: Performed By: #### Hanna Botello, VIJI, LIPA, CMP ####[facility] Uzyfxctnmz[address] [place] [address]Dr. Tadeo Smyth AST [Catalytic activity/Vol] 17 U/L Normal 15-37 [facility] Comment on above: Performed By: #### Hanna Botello, VIJI, LIPA, CMP ####[facility] Jnmsbpqudf[address] [place] [address]Dr. Tadeo Smyth Bilirubin [Mass/Vol] 0.4 mg/dL Normal 0.2-1.0 [facility] Comment on above: Performed By: #### Hanna Botello, VIJI, LIPA, CMP ####[facility] Wmxingiqjx[address] [place] [address]Dr. Tadeo Smyth Calcium [Mass/Vol] 9.1 mg/dL Normal 8.5-10.1 [facility] Comment on above: Performed By: #### Hanna Botello, VIJI, LIPA, CMP ####[facility] Entemyhaqc[address] [place] [address]Dr. Tadeo Smyth Chloride [Moles/Vol] 105 mmol/L Normal 98-107 [facility] Comment on above: Performed By: #### Hanna Botello, VIJI, LIPA, CMP ####[facility] Hkvtbcyejs20[address] [place] [address]Dr. Tadeo Smyth CO2 [Moles/Vol] 27.6 mmol/L Normal 21.0-32.0 [facility] Comment on above: Performed By: #### M G, VIJI, LIPA, CMP ####[facility] Tywavllwqk[address] [place] [address]Dr. Tadeo Smyth Creatinine [Mass/Vol] 0.72 mg/dL Normal 0.55-1.02 [facility] Comment on above: Performed By: #### M G, VIJI, LIPA, CMP ####[facility] T[address]zslvbyfe[address] [place] [address]Dr. Tadeo Smyth EGFR-AF EGYPTIAN >60 Normal >=60 [facility] Comment on above: Performed By: #### M G, VIJI, LIPA, CMP ####[facility] Qdqrixxvso[address] [place], [place] [address]Dr. Tadeo Smyth EGFR-NON AF EGYPTIAN >60 Normal >=60 [facility] Comment on above: Performed By: #### M G, VIJI, LIPA, CMP ####[facility] Tluinlcttw[address] [place], [place] [address]Dr. Tadeo Smyth Globulin (S) [Mass/Vol] 3.6 g/dL Normal [facility] Comment on above: Performed By: #### M G, VIJI, LIPA, CMP ####[facility] Cocmokvmxz[address] [place], [place] [address]Dr. Tadeo Smyth Glucose [Mass/Vol] 100 mg/dL Normal 74-106 [facility] Comment on above: Performed By: #### M G, VIJI, LIPA, CMP ####[facility] Qcoszmnclq3[address] [place], [place] [address]Dr. Tadeo Smyth Potassium [Moles/Vol] 4.1 mmol/L Normal 3.5-5.1 [facility] Comment on above: Performed By: #### M G, VIJI, LIPA, CMP ####[facility] Ksxceabyie[address] [place], [place] [address]Dr. Tadeo Smyth Protein [Mass/Vol] 7.2 g/dL Normal 6.4-8.2 [facility] Comment on above: Performed By: #### M G, VIJI, LIPA, CMP ####[facility] Mkmnerstnl[address] [place] [address]Dr. Tadeo Smyth Sodium [Moles/Vol] 140 mmol/L Normal 136-145 [facility] Comment on above: Performed By: #### VIJI White LIPA, CMP ####[facility] Yztensdgcb[address] [place] [address]Dr. Tadeo Smyth Urea nitrogen [Mass/Vol] 15.0 mg/dL Normal 7.0-18.0 [facility] Comment on above: Performed By: #### VIJI White LIPA, CMP ####[facility] Ukrwsmncdp19[address] [place] [address]Dr. Tadeo Smyth Urea nitrogen/Creatinine [Mass ratio] 20.8 mg/mg Normal [facility] Comment on above: Performed By: #### VIJI White LIPA, CMP ####[facility] Zrepprbtuc[address] [place], [place] [address]Dr. Tadeo Smyth UA RANDOM W/MICROSCOPICon BACTERIA TRACE Abnormal NONE SEEN [facility] Comment on above: Performed By: #### U AMIC ####[facility] Qzdekxhvfn[address] [place], [place] [address]Dr. Tadeo Smyth Bilirubin Ql (U) Negative Normal NEGATIVE [facility] Comment on above: Performed By: #### U AMIC ####[facility] Pjvviovcfp[address] [place] [address]Dr. Tadeo Smyth CAST NONE SEEN Normal NONE SEEN [facility] Comment on above: Performed By: #### U AMIC ####[facility] Lsabekjqix[address] [place] [address]Dr. Tadeo Smyth Clarity (U) CLEAR Normal CLEAR [facility] Comment on above: Performed By: #### U AMIC ####[facility] Putjksjadd[address] [place], [place] [address]Dr. Tadeo Smyth Color (U) LT. YELLOW Normal YELLOW [facility] Comment on above: Performed By: #### U AMIC ####[facility] Einpsapnpu[address] [place], [place] [address]Dr. Tadeo Smyth Crystals LM Nom (Urine sed) NONE SEEN Normal NONE SEEN [facility] Comment on above: Performed By: #### U AMIC ####[facility] Gzsisrgvlu4[address] [place], [place] [address]Dr. Tadeo Smyth Epithelial cells LM Ql (Urine sed) RARE Normal NONE SEEN /RARE [facility] Comment on above: Performed By: #### U AMIC ####[facility] Qcruwwozsg[address] [place], [place] [address]Dr. Tadeo Smyth Glucose Ql (U) Negative Normal NEGATIVE [facility] Comment on above: Performed By: #### U AMIC ####[facility] Avxvddbpfy[address] [place], [place] [address]Dr. Tadeo Smyth Hemoglobin Ql (U) TRACE-LYSED Abnormal NEGATIVE [facility] Comment on above: Performed By: #### U AMIC ####[facility] Vdfaqgbuei4[address] [place], [place] [address]Dr. Tadeo Smyth Ketones Ql (U) Negative Normal NEGATIVE [facility] Comment on above: Performed By: #### U AMIC ####[facility] Uujgopwaim[address] [place], [place] [address]Dr. Tadeo Smyth LEUKOCYTES Negative Normal NEGATIVE [facility] Comment on above: Performed By: #### U AMIC ####[facility] Hvrijnzsoc[address] [place], [place] [address]Dr. Tadeo Smyth MUCOUS NONE SEEN Normal NONE SEEN [facility] Comment on above: Performed By: #### U AMIC ####[facility] Dpwyeawzte[address] [place], [place] [address]Dr. Tadeo Smyth Nitrite Ql (U) Negative Normal NEGATIVE [facility] Comment on above: Performed By: #### U AMIC ####[facility] Utwhfvnoae[address] [place], [place] [address]Dr. Tadeo Smyth pH (U) 6.0 [pH] Normal 5-9 [facility] Comment on above: Performed By: #### U AMIC ####[facility] [address]rzyrlfjq[address] [place], [place] [address]Dr. Tadeo Smyth RBC 0-2 Normal 0-2 [facility] Comment on above: Performed By: #### U AMIC ####[facility] Vgvizkcjjr[address] [place] [id number]. Margotnicole Haja SPEC GRAVITY 1.010 Normal 1.005-<=1.0 25 [facility] Comment on above: Performed By: #### U AMIC ####[facility] Medzmsvfws28[address] [place] [id number]. Tadeo Smyth UA PROTEIN Negative Normal NEGATIVE/ TRACE [facility] Comment on above: Performed By: #### U AMIC ####[facility] [address]uneklwi[address] [place] [id number]. Tadeo Smyth Urobilinogen Qn (U) 0.2 {Benito'U}/dL Normal 0.2 - 1. 0 [facility] Comment on above: Performed By: #### U AMIC ####[facility] Lstnxgxkdm14[address] [place] [address]Dr. Tadeo Smyth WBC 0-2 Abnormal NONE SEEN [facility] Comment on above: Performed By: #### U AMIC ####[facility] Ndgsnufluf[address] [place] [id number]. Tadeo Smyth Activated partial thrombopla stin time (aPTT) in platelet poor plasma by coagulation aOrdered By: Conner Griffith on 10-26-2022 aPTT Coag (PPP) [Time] 30.8 s 25.1-36.[address] [facility] Albumin [Mass/volume] in Ser um or PlasmaOrdered By: Conner Griffith on 10-26-2022 Albumin [Mass/Vol] 3.6 g/dL 3.2-5.5 [facility] Automated erythrocytes count in urine sediment (number/area)Ordered By: Conner Griffith on 10-26-2022 RBC Auto (Urine sed) [#/Area] 0-1 [HPF] 0-[address] [facility] Automated leukocytes count i n urine sediment (number/area)Ordered By: Conner Griffith on 10-26-2022 WBC Auto (Urine sed) [#/Area] None seen [HPF] 0-[address] [facility] Basophils Auto (Bld) [#/Vol] Ordered By: Conner Griffith on 10-26-2022 Basophils (Bld) [#/Vol] 0.0 10*3/uL 0.0-0.[address] [facility] Basophils/100 WBC Auto (Bld) Ordered By: Conner Griffith on 10-26-2022 Basophils/100 WBC (Bld) 0.6 % . [facility] Bilirubin Test strip Ql (U)O rdered By: Conner Griffith on 10-26-2022 Bilirubin Ql (U) Negative Negative [facility] Color Auto (U)Ordered By: Kevin Griffith on 10-26-2022 Color (U) Yellow Yellow [facility] Creatinine and Glomerular fi ltration rate.predicted panel (S/P/Bld)Ordered By: Conner Griffith on 10-26-2022 Creatinine [Mass/Vol] 0.81 mg/dL 0.44-1.03 [facility] Eosinophils Auto (Bld) [#/Vo l]Ordered By: Conner Griffith on 10-26-2022 Eosinophils (Bld) [#/Vol] 0.2 10*3/uL 0.0-0.[address] [facility] Eosinophils/100 WBC Auto (Bl d)Ordered By: Conner Griffith on 10-26-2022 Eosinophils/100 WBC (Bld) 3.3 % . [facility] Erythrocyte distribution wid th Auto (RBC) [Ratio]Ordered By: Conner Griffith on 10-26-2022 Erythrocyte distribution width (RBC) [Ratio] 14.5 % 11.9-15.[address] [facility] Estimated glomerular filtrat ion rate (GFR) non- AmericanOrdered By: Conner Griffith on 10-26-2022 GFR/1.73 sq M.predicted among non-blacks MDRD (S/P/Bld) [Vol rate/Area] > 60 mL/Min [facility] Globulin Calc (S) [Mass/Vol] Ordered By: Conner Griffith on 10-26-2022 Globulin (S) [Mass/Vol] 3.2 g/dL [facility] Hematocrit Auto (Bld) [Volum e fraction]Ordered By: Conner Griffith on 10-26-2022 Hematocrit (Bld) [Volume fraction] 36.7 % 34.0-46.[address] [facility] Hemoglobin [Mass/volume] in BloodOrdered By: Conner Griffith on 10-26-2022 Hemoglobin (Bld) [Mass/Vol] 12.1 g/dL 11.8-15.[address] [facility] Ketones Auto test strip (U) [Mass/Vol]Ordered By: Conner Griffith on 10-26-2022 Ketones (U) [Mass/Vol] Negative Negative [facility] Laboratory - Chemistry and C hemistry - challengeOrdered By: Conner Griffith on 10-26-2022 Lipase [Catalytic activity/Vol] 37.0 U/L 22-[address] [facility] Laboratory - CoagulationOrde red By: Conner Griffith on 10-26-2022 PT Coag (PPP) [Time] 10.6 s 9.0-12.9 [facility] - UrinalysisOrder ed By: Conner Griffith on 10-26-2022 Hyaline casts LM Ql (Urine sed) None seen [LPF] 0-[address] [facility] Leukocytes [#/volume] correc jun for nucleated erythrocytes in Blood by Automated counOrdered By: Conner Griffith on 10-26-2022 WBC corrected for nucl RBC Auto (Bld) [#/Vol] 6.3 10*3/uL 3.8-11.[address] [facility] Lymphocytes Auto (Bld) [#/Vo l]Ordered By: Conner Griffith on 10-26-2022 Lymphocytes (Bld) [#/Vol] 1.9 10*3/uL 1.00-4.[address] [facility] Lymphocytes/100 WBC Auto (Bl d)Ordered By: Conner Griffith on 10-26-2022 Lymphocytes/100 WBC (Bld) 29.7 % . [facility] MCH Auto (RBC) [Entitic mass ]Ordered By: Conner Griffith on 10-26-2022 MCH (RBC) [Entitic mass] 29.3 pg 24.7-34.[address] [facility] MCHC Auto (RBC) [Mass/Vol]Or dered By: Conner Griffith on 10-26-2022 MCHC (RBC) [Mass/Vol] 33.1 g/dL 32.0-35.0 [facility] MCV Auto (RBC) [Entitic vol] Ordered By: Conner Griffith on 10-26-2022 MCV (RBC) [Entitic vol] 88.5 fL 80-[address] [facility] Monocyte distribution width [Entitic volume] in Blood by AutomatedOrdered By: Conner Griffith on 10-26-2022 Monocyte distribution width Auto (Bld) [Entitic vol] 16.27 % 0.00-20.[address] [facility] Monocytes Auto (Bld) [#/Vol] Ordered By: Conner Griffith on 10-26-2022 Monocytes (Bld) [#/Vol] 0.4 10*3/uL 0.0-0.[address] [facility] Monocytes/100 WBC Auto (Bld) Ordered By: Conner Griffith on 10-26-2022 Monocytes/100 WBC (Bld) 7.1 % . [facility] Neutrophils Auto (Bld) [#/Vo l]Ordered By: Conner Griffith on 10-26-2022 Neutrophils (Bld) [#/Vol] 3.7 10*3/uL 1.8-7.[address] [facility] Neutrophils/100 WBC Auto (Bl d)Ordered By: Conner Griffith on 10-26-2022 Neutrophils/100 WBC (Bld) 59.3 % . [facility] Nitrite Test strip Ql (U)Ord ered By: Conner Griffith on 10-26-2022 Nitrite Ql (U) Negative Negative [facility] No Panel InformationOrdered By: Conner Griffith on 10-26-2022 Estimated GFR () > 60 mL/Min [facility] Comment on above: GFR estimated refere nce range: According to KDOQI guidelines, <60 ml/min/1.73m2 is sufficient to diagnose a patient with chronic kidney disease. Pharmacy Creatinine Clearance (Chem 93.[address] [facility] Nucleated erythrocytes [Pres ence] in Blood by Automated countOrdered By: Conner Griffith on 10-26-2022 Nucleated RBC Auto Ql (Bld) 0.3 /100{WBC} 0-0.[address] [facility] Platelet mean volume Auto (B ld) [Entitic vol]Ordered By: Conner Griffith on 10-26-2022 Platelet mean volume (Bld) [Entitic vol] 7.5 fL 6.3-10.[address] [facility] Platelet poor plasma interna tional normalized ratio (INR) by coagulation assay (relatOrdered By: Conner Griffith on 10-26-2022 INR Coag (PPP) [Relative time] 0.9 {INR} [facility] Comment on above: INR Therapeutic Rang [...] (Bld) [#/Vol] 379 10*3/uL 150-[address] [facility] Protein Auto test strip (U) [Mass/Vol]Ordered By: Conner Griffith on 10-26-2022 Protein (U) [Mass/Vol] Negative Negative [facility] Protein [Mass/volume] in Ser um or PlasmaOrdered By: Conner Griffith on 10-26-2022 Protein [Mass/Vol] 6.8 g/dL 6.1-7.9 [facility] RBC Auto (Bld) [#/Vol]Ordere d By: Conner Griffith on 10-26-2022 RBC (Bld) [#/Vol] 4.14 10*6/uL 3.60-5.00 [facility] Serum or plasma alanine cooley otransferase measurement without P-5'-P (enzymatic activiOrdered By: Conner Griffith on 10-26-2022 ALT No additional P-5'-P [Catalytic activity/Vol] 18 U/L 10-[address] [facility] Serum or plasma albumin/glob ulin mass ratioOrdered By: Conner Griffith on 10-26-2022 Albumin/Globulin [Mass ratio] 1.1 {ratio} [facility] Serum or plasma alkaline augustin sphatase measurement (enzymatic activity/volume)Ordered By: Conner Griffith on 10-26-2022 ALP [Catalytic activity/Vol] 121 U/L 32-[address] [facility] Serum or plasma anion gap de terminationOrdered By: Conner Griffith on 10-26-2022 Anion gap [Moles/Vol] 11.3 mmol/L 6.0-15.0 [facility] Serum or plasma aspartate am inotransferase measurement (enzymatic activity/volume)Ordered By: Conner Griffith on 10-26-2022 AST [Catalytic activity/Vol] 19 U/L 10-[address] [facility] Serum or plasma calcium julee urement (mass/volume)Ordered By: Conner Griffith on 10-26-2022 Calcium [Mass/Vol] 8.9 mg/dL 8.2-10.2 [facility] Serum or plasma chloride julio surement (moles/volume)Ordered By: Conner Griffith on 10-26-2022 Chloride [Moles/Vol] 108 mmol/L 95-114 [facility] Serum or plasma glucose julee urement (mass/volume)Ordered By: Conner Griffith on 10-26-2022 Glucose [Mass/Vol] 95 mg/dL 70-100 [facility] Comment on above: ADA recommended refe rence rangeRandom Glucose Reference Range is dependent on time and content of last meal. Glucose of more than 200 mg/dL in a nonstressed, ambulatory subject supports the diagnosis of Diabetes Mellitus. Serum or plasma potassium me asurement (moles/volume)Ordered By: Conner Griffith on 10-26-2022 Potassium [Moles/Vol] 3.4 mmol/L 3.5-5.1 [facility] Serum or plasma sodium measu rement (moles/volume)Ordered By: Conner Griffith on 10-26-2022 Sodium [Moles/Vol] 141 mmol/L 136-146 [facility] Serum or plasma total biliru bin measurement (mass/volume)Ordered By: Conner Griffith on 10-26-2022 Bilirubin [Mass/Vol] 0.4 mg/dL 0.3-1.2 [facility] Serum or plasma total carbon dioxide measurement (moles/volume)Ordered By: Conner Griffith on 10-26-2022 CO2 [Moles/Vol] 25.1 mmol/L 22.0-30.0 [facility] Serum or plasma urea nitroge n measurement (mass/volume)Ordered By: Conner Griffith on 10-26-2022 Urea nitrogen [Mass/Vol] 18 mg/dL 9-[address] [facility] Specific gravity Auto test s trip (U) [Rel density]Ordered By: Conner Griffith on 10-26-2022 Specific gravity (U) [Rel density] 1.019 1.001-1.[address] [facility] Squamous epithelial cells de tection in urine sediment by light microscopyOrdered By: Conner Griffith on 10-26-2022 Epithelial cells.squamous LM Ql (Urine sed) 1-2 [HPF] 0-[address] [facility] Urine bacteria detection by automated methodOrdered By: Conner Griffith on 10-26-2022 Bacteria Auto Ql (U) None seen None Seen [facility] Urine clarity by refractomet ry automatedOrdered By: Conner Griffith on 10-26-2022 Clarity Refractometry automated (U) Clear Clear [facility] Urine glucose measurement by automated test strip (mass/volume)Ordered By: Conner Griffith on 10-26-2022 Glucose Auto test strip (U) [Mass/Vol] Normal mg/dL Normal [facility] Urine hemoglobin detection b y automated test stripOrdered By: Conner Griffith on 10-26-2022 Hemoglobin Auto test strip Ql (U) Negative Negative [facility] Urine lactic acid measuremen tOrdered By: Conner Griffith on 10-26-2022 Lactate (U) [Moles/Vol] 1.0 mmol/L 0.5-2.[address] [facility] Urine leukocyte esterase det ection by automated test stripOrdered By: Conner Griffith on 10-26-2022 Leukocyte esterase Auto test strip Ql (U) 1+ Negative [facility] Urobilinogen Auto test strip (U) [Mass/Vol]Ordered By: Connre Griffith on 10-26-2022 Urobilinogen (U) [Mass/Vol] Normal mg/dL Normal [facility] WBC Auto (Bld) [#/Vol]Ordere d By: Conner Griffith on 10-26-2022 WBC (Bld) [#/Vol] 6.3 10*3/uL 3.8-11.6 [facility] pH Auto test strip (U)Ordere d By: Conner Griffith on 10-26-2022 pH (U) 6.5 [pH] 5.0-9.[address] [facility] CBC AUTO DIFFon 09-21-2022 BASO # 0.0 103/ul Normal 0.0-0.1 [facility] Comment on above: Performed By: #### C BC ####[facility] [address] [place] [address]Dr. Tadeo Smyth Basophils/100 WBC (Bld) 0.4 % Normal 0.2-2.0 [facility] Comment on above: Performed By: #### C BC ####[facility] [address] [place], [place] [address]Dr. Tadeo Smyth EO # 0.1 103/ul Normal 0.0-0.7 [facility] Comment on above: Performed By: #### C BC ####[facility] [address] [place] [address]Dr. Tadeo Smyth Eosinophils/100 WBC (Bld) 1.8 % Normal 0.9-7.0 [facility] Comment on above: Performed By: #### C BC ####[facility] Xwt[address] [place], [place] [address]Dr. Tadeo Smyth Erythrocyte distribution width (RBC) [Ratio] 13.8 % Normal 11.0-15.0 [facility] Comment on above: Performed By: #### C BC ####[facility] W[address] [place], [place] [address]Dr. Tadeo Smyth Hematocrit (Bld) [Volume fraction] 41.0 % Normal 36.0-48.0 [facility] Comment on above: Performed By: #### C BC ####[facility] [address]poph[address]be[address] [place], [place] [address]Dr. Tadeo Smyth Hemoglobin (Bld) [Mass/Vol] 13.3 g/dL Normal 12.0-16.0 [facility] Comment on above: Performed By: #### C BC ####[facility] [address] [place] [address]Dr. Tadeo Smyth IG # 0.01 10e3/ul Normal 0.00-0.03 [facility] Comment on above: Performed By: #### C BC ####[facility] [address] [place] [address]Dr. Tadeo Smyth IG % 0.1 % Normal 0.0-0.5 [facility] Comment on above: Performed By: #### C BC ####[facility] [address] [place] [address]Dr. Tadeo Smyth LYMPH # 1.7 103/ul Normal 1.2-3.8 [facility] Comment on above: Performed By: #### C BC ####[facility] Wk[address]urtnen[address] [place], [place] [address]Dr. Tadeo Smyth Lymphocytes/100 WBC (Bld) 24.8 % Normal 20.5-60.0 [facility] Comment on above: Performed By: #### C BC ####[facility] [address] [place] [address]Dr. Tadeo Smyth MANUAL DIFF REQ NO Normal [facility] Comment on above: Performed By: #### C BC ####[facility] Dhylzadofk[address] [place], [place] [address]Dr. Tadeo Smyth MCH (RBC) [Entitic mass] 29.0 pg Normal 26.7-34.0 [facility] Comment on above: Performed By: #### C BC ####[facility] Rsysanlpiu[address] [place], [place] [address]Dr. Tadeo Smyth MCHC (RBC) [Mass/Vol] 32.4 g/dL Normal 29.9-35.2 [facility] Comment on above: Performed By: #### C BC ####[facility] Zqkatuylmu[address] [place], [place] [address]Dr. Tadeo Smyth MCV (RBC) [Entitic vol] 89.3 fL Normal 81.0-99.0 [facility] Comment on above: Performed By: #### C BC ####[facility] [address] [place] [id number]. Tadeo Smyth MONO # 0.5 103/ul Normal 0.3-0.8 [facility] Comment on above: Performed By: #### C BC ####[facility] Luvxwjxdef[address] [place] [id number]. Tadeo Smyth Monocytes/100 WBC (Bld) 6.9 % Normal 1.7-12.0 [facility] Comment on above: Performed By: #### C BC ####[facility] Mdsgrcguum[address] [place] [id number]. Tadeo Smyth NEUT # 4.5 103/ul Normal 1.4-6.5 [facility] Comment on above: Performed By: #### C BC ####[facility] Gdkboeurac[address] [place], [place] [address]Dr. Tadeo Smyth Neutrophils/100 WBC (Bld) 66.0 % Normal 43.0-75.0 [facility] Comment on above: Performed By: #### C BC ####[facility] Eednfjbhdt[address] [place], [place] [address]Dr. Tadeo Smyth Platelet mean volume (Bld) [Entitic vol] 8.8 fL Critically low 9.5-13.5 [facility] Comment on above: Performed By: #### C BC ####[facility] [address] [place] [address]Dr. Tadeo Smyth PLT 384 103/ul Normal 150-450 [facility] Comment on above: Performed By: #### C BC ####[facility] I[address] [place], [place] [address]Dr. Tadeo Smyth RBC 4.59 106/ul Normal 4.20-5.40 [facility] Comment on above: Performed By: #### C BC ####[facility] Utv[address]pupgs[address] [place] [address]Dr. Tadeo Smyth WBC 6.8 103/ul Normal 4.0-11.0 [facility] Comment on above: Performed By: #### C BC ####[facility] Ckbyaqzdum[address] [place] [address]Dr. Margotnicole Smyth PROF CHEM 8 (BAS METB)on Anion gap [Moles/Vol] 13.8 mmol/L Normal [facility] Comment on above: Performed By: #### B MP ####[facility] Xsiecrseyo[address] [place], [place] [address]Dr. Tadeo Smyth Calcium [Mass/Vol] 9.6 mg/dL Normal 8.5-10.1 [facility] Comment on above: Performed By: #### B MP ####[facility] Yxtsxceelb[address] [place], [place] [address]Dr. Tadeo Smyth Chloride [Moles/Vol] 106 mmol/L Normal 98-107 [facility] Comment on above: Performed By: #### B MP ####[facility] Hfycvkyvzb[address] [place], [place] [address]Dr. Tadeo Smyth CO2 [Moles/Vol] 25.9 mmol/L Normal 21.0-32.0 [facility] Comment on above: Performed By: #### B MP ####[facility] Eyzlcmrkno[address] [place], [place] [address]Dr. Tadeo Smyth Creatinine [Mass/Vol] 0.92 mg/dL Normal 0.55-1.02 [facility] Comment on above: Performed By: #### B MP ####[facility] Gvyaaajzze[address] [place], [place] [address]Dr. Tadeo Smyth EGFR-AF EGYPTIAN >60 Normal >=60 [facility] Comment on above: Performed By: #### B MP ####[facility] Gkvpswevdu[address] [place], [place] [address]Dr. Tadeo Smyth EGFR-NON AF EGYPTIAN >60 Normal >=60 [facility] Comment on above: Performed By: #### B MP ####[facility] Ezklobmsdt[address] [place], [place] [address]Dr. Tadeo Smyth Glucose [Mass/Vol] 98 mg/dL Normal 74-106 [facility] Comment on above: Performed By: #### B MP ####[facility] Fihlryrxwm[address] [place], [place] [address]Dr. Tadeo Smyth Potassium [Moles/Vol] 3.7 mmol/L Normal 3.5-5.1 [facility] Comment on above: Performed By: #### B MP ####[facility] I[address]ukqpu[address] [place] [address]Dr. Tadeo Smyth Sodium [Moles/Vol] 142 mmol/L Normal 136-145 [facility] Comment on above: Performed By: #### B MP ####[facility] Yuvkpmolhu[address] [place], [place] [address]Dr. Tadeo Smyth Urea nitrogen [Mass/Vol] 19.0 mg/dL Critically high 7.0-18.0 [facility] Comment on above: Performed By: #### B MP ####[facility] Ngqbircdwn[address] [place], [place] [address]Dr. Tadeo Smyth Urea nitrogen/Creatinine [Mass ratio] 20.7 mg/mg Normal [facility] Comment on above: Performed By: #### B MP ####[facility] Hfnvfrpnfd[address] [place], [place] [address]Dr. Tadeo Smyth XR KUB 1 VIEWon 09-21-2022 XR KUB 1 VIEW Normal [facility] AMYLASEon 09-18-2022 Amylase [Catalytic activity/Vol] 58 U/L Normal 25-115 [facility] Comment on above: Performed By: #### L IPA, CMP, VIJI ####[facility] Nlarfpefbz[address] [place], [place] [address]Dr. Tadeo Smyth CBC AUTO DIFFon 09-18-2022 BASO # 0.0 103/ul Normal 0.0-0.1 [facility] Comment on above: Performed By: #### C BC ####[facility] Cshcteishk3[address] [place], [place] [address]Dr. Tadeo Smyth Basophils/100 WBC (Bld) 0.3 % Normal 0.2-2.0 [facility] Comment on above: Performed By: #### C BC ####[facility] Gqtqiglbur[address] [place], [place] [address]Dr. Tadeo Smyth EO # 0.1 103/ul Normal 0.0-0.7 [facility] Comment on above: Performed By: #### C BC ####[facility] Fdrxxoyjwf[address] [place] [address]Dr. Tadeo Smyth Eosinophils/100 WBC (Bld) 1.8 % Normal 0.9-7.0 [facility] Comment on above: Performed By: #### C BC ####[facility] Eqqfiuniur[address] [place], [place] [address]Dr. Tadeo Smyth Erythrocyte distribution width (RBC) [Ratio] 13.7 % Normal 11.0-15.0 [facility] Comment on above: Performed By: #### C BC ####[facility] Cmxjfdsndv[address] [place], [place] [address]Dr. Tadeo Smyth Hematocrit (Bld) [Volume fraction] 37.4 % Normal 36.0-48.0 [facility] Comment on above: Performed By: #### C BC ####[facility] Xkebkqnxzp[address] [place], [place] [address]Dr. Tadeo Smyth Hemoglobin (Bld) [Mass/Vol] 12.3 g/dL Normal 12.0-16.0 [facility] Comment on above: Performed By: #### C BC ####[facility] Jyywtrqfor[address] [place], [place] [address]Dr. Tadeo Smyth IG # 0.02 10e3/ul Normal 0.00-0.03 [facility] Comment on above: Performed By: #### C BC ####[facility] Cqov[address]gmum[address] [place], [place] [address]Dr. Tadeo Smyth IG % 0.3 % Normal 0.0-0.5 [facility] Comment on above: Performed By: #### C BC ####[facility] Pwhgrzrntw[address] [place], [place] [address]Dr. Tadeo Smyth LYMPH # 2.2 103/ul Normal 1.2-3.8 [facility] Comment on above: Performed By: #### C BC ####[facility] Ifdvdwwjgt[address] [place], [place] [address]Dr. Tadeo Haja Lymphocytes/100 WBC (Bld) 29.3 % Normal 20.5-60.0 [facility] Comment on above: Performed By: #### C BC ####[facility] [address]ks[address]vrolg[address] [place] [address]Dr. Tadeo Smyth MANUAL DIFF REQ NO Normal [facility] Comment on above: Performed By: #### C BC ####[facility] Uqgfmcxzee65[address] [place] [id number]. Tadeo Smyth MCH (RBC) [Entitic mass] 29.0 pg Normal 26.7-34.0 [facility] Comment on above: Performed By: #### C BC ####[facility] Wfpgnvfdba5532 [place] [address]Dr. Tadeo Smyth MCHC (RBC) [Mass/Vol] 32.9 g/dL Normal 29.9-35.2 [facility] Comment on above: Performed By: #### C BC ####[facility] Agyoclorpi[address] [place], [place] [address]Dr. Tadeo Smyth MCV (RBC) [Entitic vol] 88.2 fL Normal 81.0-99.0 [facility] Comment on above: Performed By: #### C BC ####[facility] Fyblgjiaul[address] [place], [place] [address]Dr. Tadeo Smyth MONO # 0.5 103/ul Normal 0.3-0.8 [facility] Comment on above: Performed By: #### C BC ####[facility] Reeqaojtqy6[address] [place], [place] [address]Dr. Tadeo Smyth Monocytes/100 WBC (Bld) 6.4 % Normal 1.7-12.0 [facility] Comment on above: Performed By: #### C BC ####[facility] Xw[address]ggbrwl[address] [place], [place] [address]DrNeo Smyth NEUT # 4.7 103/ul Normal 1.4-6.5 [facility] Comment on above: Performed By: #### C BC ####[facility] Lwgvbmkbcj[address] [place], [place] [address]DrNeo Smyth Neutrophils/100 WBC (Bld) 61.9 % Normal 43.0-75.0 [facility] Comment on above: Performed By: #### C BC ####[facility] Fa[address]zqoxdo[address] [place] [address]Dr. Tadeo Smyth Platelet mean volume (Bld) [Entitic vol] 9.0 fL Critically low 9.5-13.5 [facility] Comment on above: Performed By: #### C BC ####[facility] Iq[address]jjmeqd[address] [place] [address]Dr. Tadeo Smyth PLT 395 103/ul Normal 150-450 [facility] Comment on above: Performed By: #### C BC ####[facility] Jznfiffwma[address] [place], [place] [address]Dr. Tadeo Smyth RBC 4.24 106/ul Normal 4.20-5.40 [facility] Comment on above: Performed By: #### C BC ####[facility] Weuyuuvsab[address] [place], [place] [address]Dr. Tadeo Smyth WBC 7.6 103/ul Normal 4.0-11.0 [facility] Comment on above: Performed By: #### C BC ####[facility] Vhvtoogjpo[address] [place], [place] [address]Dr. Tadeo S[address] CT ABD/PELV W CONon 09-18-[address] ABD/PELV W CON Normal [facility] ER URINE PROFILEon 3 Bilirubin Ql (U) SMALL Abnormal NEGATIVE [facility] Comment on above: Performed By: #### SANDRO MERCHANTRO ####[facility] [address] [place] [address]Dr. Tadeo Smyth Clarity (U) CLEAR Normal CLEAR [facility] Comment on above: Performed By: #### SANDRO MERCHANTRO ####[facility] [address] [place], [place] [address]DrNeo Smyth Color (U) DK. YELLOW Normal YELLOW [facility] Comment on above: Performed By: #### SANDRO MERCHANTRO ####[facility] Zsojdmgiey[address] [place] [address]Dr. Yilan Smyth ERUAHD A micrscopic examina tion will be performed if indicated. Normal [facility] Comment on above: Performed By: #### SANDRO MERCHANTRO ####[facility] T[address]ztwtlzer[address] [place], [place] [address]Dr. Tadeo Smyth Glucose Ql (U) Negative Normal NEGATIVE [facility] Comment on above: Performed By: #### Matthew FRANCISCO UMICRO ####[facility] [address]fbnjmguge[address] [place], [place] [address]Dr. Margotnicole Smyth Hemoglobin Ql (U) SMALL Abnormal NEGATIVE [facility] Comment on above: Performed By: #### Matthew FRANCISCO UMICRO ####[facility] [address]klq[address] [place], [place] [address]Dr. Tadeo Smyth Ketones Ql (U) Negative Normal NEGATIVE [facility] Comment on above: Performed By: #### Matthew FRANCISCO UMICRO ####[facility] [address]acffkr[address] [place], [place] [address]Dr. Tadeo Smyth LEUKOCYTES Negative Normal NEGATIVE [facility] Comment on above: Performed By: #### Matthew FRANCISCO UMICRO ####[facility] Kanogewdlw[address] [place], [place] [address]Dr. Margotnicole Smyth Nitrite Ql (U) Negative Normal NEGATIVE [facility] Comment on above: Performed By: #### SANDRO MERCHANTRO ####[facility] Wqltvpzbhb[address] [place], [place] [address]Dr. Margotnicole Haja pH (U) 5.5 [pH] Normal 5-9 The [facility] Comment on above: Performed By: #### Matthew FRANCISCO UMICRO ####[facility] Bmenodusll[address] [place], [place] [address]Dr. Tadeo Smyth SPEC GRAVITY >=1.030 Abnormal 1.005-<=1.0 25 The [facility] Comment on above: Performed By: #### Matthew FRANCISCO UMICRO ####[facility] Twpbiytdnq[address] [place], [place] [address]Dr. Tadeo Smyth UA PROTEIN TRACE Normal NEGATIVE/ TRACE The [facility] Comment on above: Performed By: #### SANDRO MERCHANTRO ####[facility] [address]efrseiqjx[address] [place] [address]Dr. Tadeo Smyth UR MICRO IND INDICATED Normal The [facility] Comment on above: Performed By: #### SANDRO MERCHANTRO ####[facility] Ehnlhjhxea73[address] [place] [address]Dr. Tadeo Smyth Urobilinogen Qn (U) 0.2 {Benito'U}/dL Normal 0.2 - 1. 0 The [facility] Comment on above: Performed By: #### Matthew FRANCISCO CHINEDURO ####[facility] Oyararmrew34[address] [place] [address]Dr. Tadeo Smyth LACTATE/LACTIC ACIDon 2022 Lactate [Moles/Vol] 1.1 mmol/L Normal 0.4-1.9 The [facility] Comment on above: Performed By: #### L ACT ####[facility] Kwyrmtnape[address] [place], [place] [address]Dr. Margotnicole Haja LIPASEon 09-18-2022 Lipase [Catalytic activity/Vol] 75.0 U/L Normal 73.0-393.0 The [facility] Comment on above: Performed By: #### L IPA, CMP, VIJI ####[facility] Yvfufqwrvp[address] [place], [place] [address]Dr. Tadeo Smyth PROF 14(COMP METB)on 023 Albumin [Mass/Vol] 3.4 g/dL Normal 3.4-5.0 The [facility] Comment on above: Performed By: #### L IPA, CMP, VIJI ####[facility] Ygcpmxmwfu9027[address] [place], [place] [address]Dr. Margotnicole Smyth Albumin/Globulin [Mass ratio] 0.9 {ratio} Normal The [facility] Comment on above: Performed By: #### L IPA, CMP, VIJI ####[facility] Owxcawvctl[address] [place] [address]Dr. Tadeo Haja ALP [Catalytic activity/Vol] 164 U/L Critically high 46-116 The [facility] Comment on above: Performed By: #### L IPA, CMP, VIJI ####[facility] Uxatkupxcd6833 [place] [address]Dr. Tadeo Smyth ALT [Catalytic activity/Vol] 29 U/L Normal 14-59 The [facility] Comment on above: Performed By: #### L IPA, CMP, VIJI ####[facility] Uihfmwtnqu6086 [place] [address]Dr. Tadeo Smyth Anion gap [Moles/Vol] 12.3 mmol/L Normal Th e [facility] Comment on above: Performed By: #### L IPA, CMP, VIJI ####[facility] Itmtrxwwas6965 [place] [address]Dr. Tadeo Smyth AST [Catalytic activity/Vol] 30 U/L Normal 15-37 The [facility] Comment on above: Performed By: #### L IPA, CMP, VIJI ####[facility] Rltpdixwck84[address] [place], [place] [address]Dr. Tadeo Smyth Bilirubin [Mass/Vol] 0.3 mg/dL Normal 0.2-1.0 The [facility] Comment on above: Performed By: #### L IPA, CMP, VIJI ####[facility] Raoqoyuczi28[address] [place], [place] [address]Dr. Tadeo Smyth Calcium [Mass/Vol] 8.9 mg/dL Normal 8.5-10.1 [facility] Comment on above: Performed By: #### L IPA, CMP, VIJI ####[facility] Mqpfkrjqxv5[address] [place], [place] [address]Dr. Tadeo Smyth Chloride [Moles/Vol] 103 mmol/L Normal 98-107 The [facility] Comment on above: Performed By: #### L IPA, CMP, VIJI ####[facility] Xqvysulvkt9852 [place] [address]Dr. Tadeo Smyth CO2 [Moles/Vol] 27.8 mmol/L Normal 21.0-32.0 The [facility] Comment on above: Performed By: #### L IPA, CMP, VIJI ####[facility] Pgllqrirrw2030 [place] [address]Dr. Margotnicole Smyth Creatinine [Mass/Vol] 0.89 mg/dL Normal 0.55-1.02 The [facility] Comment on above: Performed By: #### L IPA, CMP, VIJI ####[facility] Gbqrshdsve2941 [place] [address]Dr. Tadeo Smyth EGFR-AF EGYPTIAN >60 Normal >=60 The [facility] Comment on above: Performed By: #### L IPA, CMP, VIJI ####[facility] Nqpoidiigw1609 [place] [address]Dr. Tadeo Smyth EGFR-NON AF EGYPTIAN >60 Normal >=60 The [facility] Comment on above: Performed By: #### L IPA, CMP, VIJI ####[facility] Vkecvzlctx7337 [place] [address]Dr. Tadeo Smyth Globulin (S) [Mass/Vol] 3.9 g/dL Normal The [facility] Comment on above: Performed By: #### L IPA, CMP, VIJI ####[facility] Vthskgnuca[address] [place], [place] [address]Dr. Tadeo Smyth Glucose [Mass/Vol] 96 mg/dL Normal 74-106 The [facility] Comment on above: Performed By: #### L IPA, CMP, VIJI ####[facility] Sfrpzrxisq[address] [place], [place] [address]Dr. Tadeo Smyth Potassium [Moles/Vol] 4.1 mmol/L Normal 3.5-5.1 The [facility] Comment on above: Performed By: #### L IPA, CMP, VIJI ####[facility] Yilgyrwfsn5838 [place] [address]Dr. Tadeo Smyth Protein [Mass/Vol] 7.3 g/dL Normal 6.4-8.2 The [facility] Comment on above: Performed By: #### L IPA, CMP, VIJI ####[facility] Wukwnhuixw[address] [place], [place] [address]Dr. Tadeo Smyth Sodium [Moles/Vol] 139 mmol/L Normal 136-145 The [facility] Comment on above: Performed By: #### L IPA, CMP, VIJI ####[facility] Hthknytoau6[address] [place], [place] [address]Dr. Tadeo Smyth Urea nitrogen [Mass/Vol] 19.0 mg/dL Critically high 7.0-18.0 The [facility] Comment on above: Performed By: #### L DIANN HALL, VIJI ####[facility] Knkiblcpds3835 [place] [address]Dr. Tadeo Smyth Urea nitrogen/Creatinine [Mass ratio] 21.3 mg/mg Normal The [facility] Comment on above: Performed By: #### L DIANN HALL, VIJI ####[facility] Zwtyedjsvu7450 [place] [address]Dr. Tadeo Smyth URINE MICROSCOPIC ONLYon BACTERIA TRACE Abnormal NONE SEEN The [facility] Comment on above: Performed By: #### SANDRO MERCHANTRO ####[facility] Hdwfqkrvtd[address] [place], [place] [address]Dr. Tadeo Smyth Bacteria identified Cx Nom (U) NOT INDICATED Normal The [facility] Comment on above: Performed By: #### Matthew FRANCISCO UMICRO ####[facility] Aixvhshxey[address] [place], [place] [address]Dr. Tadeo Smyth CAST NONE SEEN Normal NONE SEEN The [facility] Comment on above: Performed By: #### Matthew FRANCISCO UMICRO ####[facility] Aulhwzxqzl6[address] [place], [place] [address]Dr. Tadeo Smyth Crystals LM Nom (Urine sed) SEEN Abnormal NONE SEEN The [facility] Comment on above: Performed By: #### Matthew FRANCISCO UMICRO ####[facility] Btrvbzqkex85[address] [place] [address]Dr. Tadeo Smyth Epithelial cells LM Ql (Urine sed) RARE Normal NONE SEEN /RARE The [facility] Comment on above: Performed By: #### Matthew FRANCISCO UMICRO ####[facility] Rkzchajfie9019 [place] [address]Dr. Tadeo Smyth MUCOUS TRACE Abnormal NONE SEEN The [facility] Comment on above: Performed By: #### Matthew FRANCISCO UMICRO ####[facility] Ljdczurina1030 [place] [address]Dr. Tadeo Smyth RBC 0-2 Normal 0-2 The [facility] Comment on above: Performed By: #### KAROL MERCHANT ####[facility] Anvvhnlqry2245 [place] [id number]. Tadeo Haja WBC 0-2 Abnormal NONE SEEN The [facility] Comment on above: Performed By: #### E KAROL FRANCISCO ####[facility] Vkkvtcrrmm1759 [place] [id number]. Tadeo Smyth CBC AUTO DIFFon 09-14-2022 BASO # 0.0 103/ul Normal 0.0-0.1 [facility] Comment on above: Performed By: #### C BC ####[facility] Pfqzyxajgo8365 [place] [id number]. Tadeo Smyth Basophils/100 WBC (Bld) 0.3 % Normal 0.2-2.0 [facility] Comment on above: Performed By: #### C BC ####[facility] Dhezbghgrj[address] [place], [place] [address]Dr. Tadeo Smyth EO # 0.2 103/ul Normal 0.0-0.7 [facility] Comment on above: Performed By: #### C BC ####[facility] Sufvoocutf34[address] [place], [place] [address]Dr. Tadeo Smyth Eosinophils/100 WBC (Bld) 1.1 % Normal 0.9-7.0 [facility] Comment on above: Performed By: #### C BC ####[facility] Tfpahnomma[address] [place], [place] [address]Dr. Tadeo Smyth Erythrocyte distribution width (RBC) [Ratio] 13.7 % Normal 11.0-15.0 [facility] Comment on above: Performed By: #### C BC ####[facility] Dnjkqspxqm[address] [place], [place] [address]Dr. Tadeo Smyth Hematocrit (Bld) [Volume fraction] 41.3 % Normal 36.0-48.0 [facility] Comment on above: Performed By: #### C BC ####[facility] Wbpihdzync[address] [place], [place] [address]Dr. Tadeo Smyth Hemoglobin (Bld) [Mass/Vol] 13.6 g/dL Normal 12.0-16.0 [facility] Comment on above: Performed By: #### C BC ####[facility] Gunuqcfgyc[address]64 [place] [address]Dr. Tadeo Smyth IG # 0.05 10e3/ul Critically high 0.00-0.03 [facility] Comment on above: Performed By: #### C BC ####[facility] Mcyotlzgdc5378 [place] [address]Dr. Margotnicole Smyth IG % 0.4 % Normal 0.0-0.5 [facility] Comment on above: Performed By: #### C BC ####[facility] Whtzesxutd[address] [place], [place] [address]Dr. Tadeo Smyth LYMPH # 2.2 103/ul Normal 1.2-3.8 The [facility] Comment on above: Performed By: #### C BC ####[facility] Epfyyayxmb4646[address] [place], [place] [address]Dr. Tadeo Smyth Lymphocytes/100 WBC (Bld) 16.3 % Critically low 20.5-60.0 [facility] Comment on above: Performed By: #### C BC ####[facility] Egzdjuvdcw[address] [place], [place] [address]Dr. Margotnicole Smyth MANUAL DIFF REQ NO Normal [facility] Comment on above: Performed By: #### C BC ####[facility] Qxykhopvdd6449 [place] [address]Dr. Margotnicole Smyth MCH (RBC) [Entitic mass] 28.9 pg Normal 26.7-34.0 [facility] Comment on above: Performed By: #### C BC ####[facility] Vxtsvxfxmz8257[address] [place], [place] [address]Dr. Tadeo Haja MCHC (RBC) [Mass/Vol] 32.9 g/dL Normal 29.9-35.2 The [facility] Comment on above: Performed By: #### C BC ####[facility] Uzeafguhht[address] [place], [place] [address]Dr. Tadeo Smyth MCV (RBC) [Entitic vol] 87.9 fL Normal 81.0-99.0 [facility] Comment on above: Performed By: #### C BC ####[facility] Rkwpounppd8050 [place] [id number]. Tadeo Smyth MONO # 0.7 103/ul Normal 0.3-0.8 The [facility] Comment on above: Performed By: #### C BC ####[facility] Izhxkkqjkf9495 [place] [id number]. Tadeo Smyth Monocytes/100 WBC (Bld) 5.1 % Normal 1.7-12.0 [facility] Comment on above: Performed By: #### C BC ####[facility] Qovzhadhjm2756 [place] [address]Dr. Tadeo Smyth NEUT # 10.3 103/ul Critically high 1.4-6.5 [facility] Comment on above: Performed By: #### C BC ####[facility] Ccoxqupfdc[address] [place], [place] [address]Dr. Tadeo Smyth Neutrophils/100 WBC (Bld) 76.8 % Critically high 43.0-75.0 [facility] Comment on above: Performed By: #### C BC ####[facility] Eok[address]ziqawv[address] [place], [place] [address]Dr. Tadeo Smyth Platelet mean volume (Bld) [Entitic vol] 8.8 fL Critically low 9.5-13.5 [facility] Comment on above: Performed By: #### C BC ####[facility] Ejicovcjao7041 [place] [id number]. Tadeo Smyth PLT 438 103/ul Normal 150-450 The [facility] Comment on above: Performed By: #### C BC ####[facility] Vcyudjcafu[address] [place], [place] [address]Dr. Tadeo Smyth RBC 4.70 106/ul Normal 4.20-5.40 The [facility] Comment on above: Performed By: #### C BC ####[facility] Wseburicrx0559 [place] [id number]. Tadeo Smyth WBC 13.4 103/ul Critically high 4.0-11.0 The [facility] Comment on above: Performed By: #### C BC ####[facility] Swvlqvhlov4966 [place] [address]Dr. Tadeo Smyth ER URINE PROFILEon 3 Bilirubin Ql (U) Negative Normal NEGATIVE The [facility] Comment on above: Performed By: #### SANDRO MERCHANTRO ####[facility] Hlojfqakki0522 [place] [address]Dr. Margotnicole Haja Clarity (U) CLEAR Normal CLEAR The [facility] Comment on above: Performed By: #### RANDI MERCHANTICRO ####[facility] Jvmvoxmdaq[address] [place], [place] [address]Dr. Tadeo Smyth Color (U) LT. YELLOW Normal YELLOW The [facility] Comment on above: Performed By: #### SANDRO MERCHANTRO ####[facility] Qhexfmulrp0639[address] [place], [place] [address]Dr. Tadeo Smyth ERUAHD A micrscopic examina tion will be performed if indicated. Normal The [facility] Comment on above: Performed By: #### SANDRO MERCHANTRO ####[facility] Liuhehtjaf[address] [place], [place] [address]Dr. Tadeo Smyth Glucose Ql (U) Negative Normal NEGATIVE The [facility] Comment on above: Performed By: #### Matthew FRANCISCO UMICRO ####[facility] Xcrmwfhijg[address] [place], [place] [address]Dr. Tadeo Smyth Hemoglobin Ql (U) TRACE-INTACT Abnormal NEGATIVE The [facility] Comment on above: Performed By: #### Matthew FRANCISCO UMICRO ####[facility] Sx[address]fld[address] [place], [place] [address]Dr. Tadeo Smyth Ketones Ql (U) Negative Normal NEGATIVE The [facility] Comment on above: Performed By: #### SANDRO MERCHANTRO ####[facility] Cdrbepcxmp7[address] [place], [place] [address]Dr. Tadeo Smyth LEUKOCYTES Negative Normal NEGATIVE The [facility] Comment on above: Performed By: #### SANDRO MERCHANTRO ####[facility] Nurrnkbano[address] [place], [place] [address]Dr. Tadeo Smyth Nitrite Ql (U) Negative Normal NEGATIVE The [facility] Comment on above: Performed By: #### KAROL MERCHANT ####[facility] Wzdtvejowz2425 [place] [address]Dr. Tadeo Smyth pH (U) 6.5 [pH] Normal 5-9 The [facility] Comment on above: Performed By: #### KAROL MERCHANT ####[facility] Syxlbafwly53[address] [place] [address]Dr. Tadeo Smyth SPEC GRAVITY 1.020 Normal 1.005-<=1.0 25 [facility] Comment on above: Performed By: #### KAROL MERCHANT ####[facility] Rfvyqpslsq8270 [place] [address]Dr. Tadeo Smyth UA PROTEIN Negative Normal NEGATIVE/ TRACE The [facility] Comment on above: Performed By: #### KAROL MERCHANT ####[facility] Tcrhixepqn[address] [place], [place] [address]Dr. Tadeo Smyth UR MICRO IND INDICATED Normal The [facility] Comment on above: Performed By: #### KAROL MERCHANT ####[facility] Ymjurczece[address] [place], [place] [address]Dr. Tadeo Smyth Urobilinogen Qn (U) 0.2 {Benito'U}/dL Normal 0.2 - 1. 0 The [facility] Comment on above: Performed By: #### KAROL MERCHANT ####[facility] Arftwfduyk3602 [place] [address]Dr. Tadeo Smyth LIPASEon 09-14-2022 Lipase [Catalytic activity/Vol] 117.0 U/L Normal 73.0-393.0 The [facility] Comment on above: Performed By: #### H STROPN, CMP, LIPA ####[facility] Bglehomdqr5170 [place] [address]DrNeo Smyth PROF 14(COMP METB)on 023 Albumin [Mass/Vol] 3.5 g/dL Normal 3.4-5.0 The [facility] Comment on above: Performed By: #### H STROPN, CMP, LIPA ####[facility] Jqomreloxn3633 [place] [address]Dr. Tadeo Smyth Albumin/Globulin [Mass ratio] 0.8 {ratio} Normal [facility] Comment on above: Performed By: #### H STROPN, CMP, LIPA ####[facility] Vboalksehh0801 [place] [address]Dr. Tadeo Smyth ALP [Catalytic activity/Vol] 180 U/L Critically high 46-116 [facility] Comment on above: Performed By: #### H STROPN, CMP, LIPA ####[facility] Utfqxlpfee9124 [place] [address]Dr. Margotnicole Smyth ALT [Catalytic activity/Vol] 25 U/L Normal 14-59 [facility] Comment on above: Performed By: #### H STROPN, CMP, LIPA ####[facility] Qmyxnubdbw[address] [place], [place] [address]Dr. Margotnicole Smyth Anion gap [Moles/Vol] 14.4 mmol/L Normal [facility] Comment on above: Performed By: #### H STROPN, CMP, LIPA ####[facility] Tvvifiwaus[address] [place], [place] [address]Dr. Tadeo Smyth AST [Catalytic activity/Vol] 14 U/L Critically low 15-37 [facility] Comment on above: Performed By: #### H STROPN, CMP, LIPA ####[facility] Fhrmumjgbe0[address] [place], [place] [address]Dr. Tadeo Smyth Bilirubin [Mass/Vol] 0.2 mg/dL Normal 0.2-1.0 [facility] Comment on above: Performed By: #### H STROPN, CMP, LIPA ####[facility] Vunqqtmbdp16[address] [place], [place] [address]Dr. Margotnicole Smyth Calcium [Mass/Vol] 9.4 mg/dL Normal 8.5-10.1 [facility] Comment on above: Performed By: #### H STROPN, CMP, LIPA ####[facility] Zedxjgpmpe4461 [place] [address]Dr. Tadeo Smyth Chloride [Moles/Vol] 107 mmol/L Normal 98-107 The [facility] Comment on above: Performed By: #### H STROPN, CMP, LIPA ####[facility] Qorwbidiss6[address] [place], [place] [address]Dr. Tadeo Smyth CO2 [Moles/Vol] 23.9 mmol/L Normal 21.0-32.0 The [facility] Comment on above: Performed By: #### H STROPN, CMP, LIPA ####[facility] Pjhphuwdlm[address] [place], [place] [address]Dr. Tadeo Smyth Creatinine [Mass/Vol] 0.91 mg/dL Normal 0.55-1.02 The [facility] Comment on above: Performed By: #### H STROPN, CMP, LIPA ####[facility] Hrynmtwtuk[address] [place], [place] [address]Dr. Tadeo Smyth EGFR-AF EGYPTIAN >60 Normal >=60 The [facility] Comment on above: Performed By: #### H STROPN, CMP, LIPA ####[facility] Tagzgnvlxa[address] [place], [place] [address]Dr. Tadeo Smyth EGFR-NON AF EGYPTIAN >60 Normal >=60 The [facility] Comment on above: Performed By: #### H STROPN, CMP, LIPA ####[facility] Rfirdonqpo87[address] [place], [place] [address]Dr. Tadeo Smyth Globulin (S) [Mass/Vol] 4.2 g/dL Normal The [facility] Comment on above: Performed By: #### H STROPN, CMP, LIPA ####[facility] [address]alsuiuvkv[address] [place], [place] [address]Dr. Tadeo Smyth Glucose [Mass/Vol] 101 mg/dL Normal 74-106 The [facility] Comment on above: Performed By: #### H STROPN, CMP, LIPA ####[facility] Zfhhczepfk[address] [place], [place] [address]Dr. Tadeo Smyth Potassium [Moles/Vol] 3.3 mmol/L Critically low 3.5-5.1 The [facility] Comment on above: Performed By: #### H STROPN, CMP, LIPA ####[facility] Jyiujhdowy0259 [place] [address]Dr. Tadeo Smyth Protein [Mass/Vol] 7.7 g/dL Normal 6.4-8.2 The [facility] Comment on above: Performed By: #### H STROPN, CMP, LIPA ####[facility] Jfrwamhpvz3256 [place] [address]Dr. Tadeo Smyth Sodium [Moles/Vol] 142 mmol/L Normal 136-145 The [facility] Comment on above: Performed By: #### H STROPN, CMP, LIPA ####[facility] Ivegfigvrw9408 [place] [address]Dr. Tadeo Smyth Urea nitrogen [Mass/Vol] 17.0 mg/dL Normal 7.0-18.0 [facility] Comment on above: Performed By: #### H STROPN, CMP, LIPA ####[facility] Kenpiupxym9949 [place] [address]Dr. Tadeo Smyth Urea nitrogen/Creatinine [Mass ratio] 18.7 mg/mg Normal The [facility] Comment on above: Performed By: #### H STROPN, CMP, LIPA ####[facility] [id number] [place] [address]Dr. Tadeo Smyth TROPONIN, HIGH SENSITIVITYon 09-14-2022 HSTROP 46.6 pg/mL Normal 4.0-51.3 [facility] Comment on above: Result Comment: CUT- OFF POINTS HAVE BEEN ESTABLISHED BASED ON THE FOURTH UNIVERSAL DEFINITIONS OF MYOCARDIALINFARCTION. THE UPPER REFERENCE LIMIT (URL) OF TROPONIN, DEFINED THE 99TH PERCENTILE OFcTnI DISTRIBUTION IN A REFERENCE POPULATION, HAS BEEN CONFIRMED THE DECISION THRESHOLDFOR MA DIAGNOSIS. Performed By: #### H STROPN, CMP, LIPA ####[facility] Mijftsbyrr[address] [place] [address]Dr. Tadeo Smyth URINE MICROSCOPIC ONLYon BACTERIA NONE SEEN Normal NONE SEEN The [facility] Comment on above: Performed By: #### KAROL MERCHANT ####[facility] Mwfasnigkw69[address] [place] [address]Dr. Tadeo Smyth Bacteria identified Cx Nom (U) NOT INDICATED Normal [facility] Comment on above: Performed By: #### SANDRO MERCHANTRO ####[facility] Nyltgyhcgv[address] [place] [address]Dr. Tadeo Smyth CAST NONE SEEN Normal NONE SEEN The [facility] Comment on above: Performed By: #### SANDRO MERCHANTRO ####[facility] Rlmxryqblq1723 [place] [address]Dr. Tadeo Smyth Crystals LM Nom (Urine sed) NONE SEEN Normal NONE SEEN The [facility] Comment on above: Performed By: #### SANDRO MERCHANTRO ####[facility] Ekxqzsb[address] [place], [place] [address]Dr. Tadeo Smyth Epithelial cells LM Ql (Urine sed) FEW Abnormal NONE SEEN /RARE The [facility] Comment on above: Performed By: #### SANDRO MERCHANTRO ####[facility] Ncby[address]tr[address] [place], [place] [address]Dr. Tadeo Smyth MUCOUS MODERATE Abnormal NONE SEEN The [facility] Comment on above: Performed By: #### SANDRO MERCHANTRO ####[facility] Byzowtfzhm[address] [place], [place] [address]Dr. Tadeo Smyth RBC 0-2 Normal 0-2 [facility] Comment on above: Performed By: #### SANDRO MERCHANTRO ####[facility] Hweawcjgtc[address] [place], [place] [address]Dr. Tadeo Smyth WBC NONE SEEN Normal NONE SEEN The [facility] Comment on above: Performed By: #### SANDRO MERCHANTRO ####[facility] Buqrnbehed[address] [place], [place] [address]Dr. Tadeo Smyth XR ABD FLAT UP_PA Kasey 09-14 XR ABD FLAT UP_PA CH Normal The [facility] VC COMP CONSULTATIONon 09-06 VC COMP CONSULTATION Normal [facility] VC VENOUS REFLUX MACARIO LMTon 0 09-06-2022 VC VENOUS REFLUX MACARIO LMT Normal [facility] XR KUB 1 VIEWon 08-18-2022 XR KUB 1 VIEW Normal [facility] US RUBENS DOP LEG RTon 08-11-20 22 US RUBENS DOP LEG RT Normal [facility] AMYLASEon 08-08-2022 Amylase [Catalytic activity/Vol] 64 U/L Normal 25-115 [facility] Comment on above: Performed By: #### C MP, VIJI, LIPA, CMADM ####[facility] Xdbwmswqrs75[address] [place] [address]Dr. Tadeo Smyth CARDIAC NORA ADMITon 022 CK [Catalytic activity/Vol] 127 U/L Normal 26-192 [facility] Comment on above: Performed By: #### C MP, VIJI, LIPA, CMADM ####[facility] Zzsbuuvfry20[address] [place] [address]Dr. Tadeo Smyth CK.MB [Mass/Vol] 1.71 ng/mL Normal <=3.60 [facility] Comment on above: Performed By: #### C MP, VIJI, LIPA, CMADM ####[facility] Ptxbmkxpox22[address] [place] [address]Dr. Tadeo Smyth HSTROP 36.7 pg/mL Normal 4.0-51.3 [facility] Comment on above: Result Comment: CUT- OFF POINTS HAVE BEEN ESTABLISHED BASED ON THE FOURTH UNIVERSAL DEFINITIONS OF MYOCARDIALINFARCTION. THE UPPER REFERENCE LIMIT (URL) OF TROPONIN, DEFINED THE 99TH PERCENTILE OFcTnI DISTRIBUTION IN A REFERENCE POPULATION, HAS BEEN CONFIRMED THE DECISION THRESHOLDFOR [place] DIAGNOSIS. Performed By: #### C MP, VIJI, LIPA, CMADM ####[facility] Zrqecsgfoj13[address] [place] [address]Dr. Tadeo Smyth AAKASH 23 ng/mL Normal 9-82 [facility] Comment on above: Performed By: #### C MP, VIJI, LIPA, CMADM ####[facility] Kgpekdzord[address] [place] [address]Dr. Tadeo Smyth CBC AUTO DIFFon 08-08-2022 BASO # 0.0 103/ul Normal 0.0-0.1 [facility] Comment on above: Performed By: #### C BC ####[facility] Ubqclbrwtq27[address] [place] [id number]. Tadeo Smyth Basophils/100 WBC (Bld) 0.4 % Normal 0.2-2.0 [facility] Comment on above: Performed By: #### C BC ####[facility] Xkicwninlc7466 [place] [phone]. Tadeo Smyth EO # 0.1 103/ul Normal 0.0-0.7 [facility] Comment on above: Performed By: #### C BC ####[facility] Jxafkfkbej[address] [place], [place] [address]Dr. Tadeo Smyth Eosinophils/100 WBC (Bld) 1.5 % Normal 0.9-7.0 [facility] Comment on above: Performed By: #### C BC ####[facility] Tovavnksmg[address] [place], [place] [address]Dr. Tadeo Smyth Erythrocyte distribution width (RBC) [Ratio] 13.5 % Normal 11.0-15.0 [facility] Comment on above: Performed By: #### C BC ####[facility] Mluomyebuf[address] [place], [place] [address]Dr. Tadeo Smyth Hematocrit (Bld) [Volume fraction] 37.0 % Normal 36.0-48.0 [facility] Comment on above: Performed By: #### C BC ####[facility] Qxkvdxzpkr8431 [place] [phone]. Tadeo Smyth Hemoglobin (Bld) [Mass/Vol] 12.0 g/dL Normal 12.0-16.0 [facility] Comment on above: Performed By: #### C BC ####[facility] Jqvirpodio85[address] [place] [address]Dr. Tadeo Smyth IG # 0.02 10e3/ul Normal 0.00-0.03 [facility] Comment on above: Performed By: #### C BC ####[facility] Tuc[address] [place], [place] [address]Dr. Tadeo Smyth IG % 0.3 % Normal 0.0-0.5 [facility] Comment on above: Performed By: #### C BC ####[facility] Mlrwrcfuap7520 [place] [phone]. Tadeo Smyth LYMPH # 2.0 103/ul Normal 1.2-3.8 [facility] Comment on above: Performed By: #### C BC ####[facility] Wcrvypfaog1626 [place] [phone]. Tadeo Smyth Lymphocytes/100 WBC (Bld) 27.9 % Normal 20.5-60.0 [facility] Comment on above: Performed By: #### C BC ####[facility] Vzbuaejkrw3237 [place] [phone]. Tadeo Haja MANUAL DIFF REQ NO Normal [facility] Comment on above: Performed By: #### C BC ####[facility] Reeepkwrjz9439 [place] [phone]. Tadeo Haja MCH (RBC) [Entitic mass] 28.9 pg Normal 26.7-34.0 [facility] Comment on above: Performed By: #### C BC ####[facility] Qwapkghabl1196 [place] [phone]. Tadeo Smyth MCHC (RBC) [Mass/Vol] 32.4 g/dL Normal 29.9-35.2 [facility] Comment on above: Performed By: #### C BC ####[facility] Ohiitrgpfx7271 [place] [phone]. Tadeo Haja MCV (RBC) [Entitic vol] 89.2 fL Normal 81.0-99.0 [facility] Comment on above: Performed By: #### C BC ####[facility] Rxkoepdqdg0293 [place] [phone]. Tadeo Haja MONO # 0.5 103/ul Normal 0.3-0.8 [facility] Comment on above: Performed By: #### C BC ####[facility] Buegigbvxa5322 [place] [phone]. Tadeo Haja Monocytes/100 WBC (Bld) 6.7 % Normal 1.7-12.0 [facility] Comment on above: Performed By: #### C BC ####[facility] Bpemgooiyv2293 [place] [phone]. Tadeo Smyth NEUT # 4.5 103/ul Normal 1.4-6.5 [facility] Comment on above: Performed By: #### C BC ####[facility] Uxsxejxhoh7541 [place] [phone]. Tadeo Smyth Neutrophils/100 WBC (Bld) 63.2 % Normal 43.0-75.0 [facility] Comment on above: Performed By: #### C BC ####[facility] Frcbyxcwjz5284 [place] [address]Dr. Tadoe Smyth Platelet mean volume (Bld) [Entitic vol] 9.0 fL Critically low 9.5-13.5 [facility] Comment on above: Performed By: #### C BC ####[facility] Uscsajfdzo8813 [place] [address]Dr. Tadeo Smyth PLT 382 103/ul Normal 150-450 [facility] Comment on above: Performed By: #### C BC ####[facility] Rdaunmtvgk[address] [place], [place] [address]Dr. Tadeo Smyth RBC 4.15 106/ul Critically low 4.20-5.40 [facility] Comment on above: Performed By: #### C BC ####[facility] Rdpjwcjcua1253 [place] [address]Dr. Tadeo Smyth WBC 7.1 103/ul Normal 4.0-11.0 [facility] Comment on above: Performed By: #### C BC ####[facility] Djonxrpqzm7[address] [place], [place] [address]Dr. Tadeo Smy[address] CT ABD/PELV W CONon 08-08-[address] ABD/PELV W CON Normal [facility] ER URINE PROFILEon 2 Bilirubin Ql (U) Negative Normal NEGATIVE [facility] Comment on above: Performed By: #### E KAROL FRANCISCO ####[facility] Ypslfemxzu4495 [place] [address]Dr. Tadeo Smyth Clarity (U) CLEAR Normal CLEAR [facility] Comment on above: Performed By: #### E SARAH BETHR, UMICRO ####[facility] Kntjmtedmc[address] [place], [place] [address]Dr. Tadeo Smyth Color (U) YELLOW Normal YELLOW The [facility] Comment on above: Performed By: #### SANDRO MERCHANTRO ####[facility] Cbtmpeyotp[address] [place], [place] [address]Dr. Tadeo Smyth ERUAHD A micrscopic examina tion will be performed if indicated. Normal [facility] Comment on above: Performed By: #### SANDRO MERCHANTRO ####[facility] Lltaxupngf[address] [place], [place] [address]Dr. Tadeo Smyth Glucose Ql (U) Negative Normal NEGATIVE [facility] Comment on above: Performed By: #### SANDRO MERCHANTRO ####[facility] Zfrilguwqm[address] [place], [place] [address]Dr. Tadeo Smyth Hemoglobin Ql (U) TRACE-LYSED Abnormal NEGATIVE The [facility] Comment on above: Performed By: #### SANDRO MERCHANTRO ####[facility] Sgeqidwoby[address] [place], [place] [address]Dr. Tadeo Smyth Ketones Ql (U) TRACE Abnormal NEGATIVE The [facility] Comment on above: Performed By: #### SANDRO MERCHANTRO ####[facility] Ndweogjrhs[address] [place], [place] [address]Dr. Tadeo Smyth LEUKOCYTES Negative Normal NEGATIVE The [facility] Comment on above: Performed By: #### SANDRO MERCHANTRO ####[facility] Tfeslibsxh24[address] [place], [place] [address]Dr. Tadeo Smyth Nitrite Ql (U) Negative Normal NEGATIVE [facility] Comment on above: Performed By: #### SANDRO MERCHANTRO ####[facility] Obdpozzoho[address] [place], [place] [address]Dr. Tadeo Smyth pH (U) 6.0 [pH] Normal 5-9 [facility] Comment on above: Performed By: #### SANDRO MERCHANTRO ####[facility] Ryjvqjyija[address] [place], [place] [address]Dr. Tadeo Smyth SPEC GRAVITY >=1.030 Abnormal 1.005-<=1.0 25 [facility] Comment on above: Performed By: #### KAROL MERCHANT ####[facility] Fmjogivuya9[address] [place] [address]Dr. Tadeo Smyth UA PROTEIN TRACE Normal NEGATIVE/ TRACE [facility] Comment on above: Performed By: #### KAROL MERCHANT ####[facility] Wjbsimjadv5961 [place] [address]Dr. Tadeo Smyth UR MICRO IND INDICATED Normal [facility] Comment on above: Performed By: #### KAROL MERCHANT ####[facility] Ymirwwrquw8424 [place] [address]Dr. Tadeo Smyth Urobilinogen Qn (U) 0.2 {Benito'U}/dL Normal 0.2 - 1. 0 [facility] Comment on above: Performed By: #### KAROL MERCHANT ####[facility] Mpuqthkqml8266 [place] [address]Dr. Tadeo Smyth LACTATE/LACTIC ACIDon 2021 Lactate [Moles/Vol] 1.3 mmol/L Normal 0.4-1.9 [facility] Comment on above: Performed By: #### L ACT ####[facility] Avfnwwhhap[address] [place], [place] [address]Dr. Tadeo Smyht LIPASEon 08-08-2022 Lipase [Catalytic activity/Vol] 120.0 U/L Normal 73.0-393.0 [facility] Comment on above: Performed By: #### C MP, VIJI, LIPA, CMADM ####[facility] Vuwcoryjoj9864 [place] [address]Dr. Tadeo Smyth PROF 14(COMP METB)on 022 Albumin [Mass/Vol] 3.8 g/dL Normal 3.4-5.0 [facility] Comment on above: Performed By: #### C MP, VIJI, LIPA, CMADM ####[facility] Nzftgpufyj[address] [place], [place] [address]Dr. Tadeo Smyth Albumin/Globulin [Mass ratio] 1.1 {ratio} Normal [facility] Comment on above: Performed By: #### C MP, VIJI, LIPA, CMADM ####[facility] Fcwewqshpv6658 [place] [address]Dr. Tadeo Smyth ALP [Catalytic activity/Vol] 145 U/L Critically high 46-116 [facility] Comment on above: Performed By: #### C MP, VIJI, LIPA, CMADM ####[facility] Omcdwyshsr1745 [place] [address]Dr. Tadeo Smyth ALT [Catalytic activity/Vol] 30 U/L Normal 14-59 [facility] Comment on above: Performed By: #### C MP, VIJI, LIPA, CMADM ####[facility] Iexdynqcjs1159 [place] [address]Dr. Tadeo Smyth Anion gap [Moles/Vol] 11.5 mmol/L Normal [facility] Comment on above: Performed By: #### C MP, VIJI, LIPA, CMADM ####[facility] Kddurkiusc0024 [place] [address]Dr. Tadeo Smyth AST [Catalytic activity/Vol] 17 U/L Normal 15-37 [facility] Comment on above: Performed By: #### C MP, VIJI, LIPA, CMADM ####[facility] Uuwraocvfl3242 [place] [address]Dr. Margotnicole Smyth Bilirubin [Mass/Vol] 0.1 mg/dL Critically low 0.2-1.0 [facility] Comment on above: Performed By: #### C MP, VIJI, LIPA, CMADM ####[facility] Aisvnggdag2100 [place] [address]Dr. Margotnicole Smyth Calcium [Mass/Vol] 8.9 mg/dL Normal 8.5-10.1 [facility] Comment on above: Performed By: #### C MP, VIJI, LIPA, CMADM ####[facility] Bjybyybuco4349 [place] [address]Dr. Tadeo Smyht Chloride [Moles/Vol] 104 mmol/L Normal 98-107 [facility] Comment on above: Performed By: #### C MP, VIJI, LIPA, CMADM ####[facility] Ffbbisryue6236 [place] [address]Dr. Tadeo Smyth CO2 [Moles/Vol] 27.2 mmol/L Normal 21.0-32.0 [facility] Comment on above: Performed By: #### C MP, VIJI, LIPA, CMADM ####[facility] [address]tiy[address] [place], [place] [address]Dr. Tadeo Smyth Creatinine [Mass/Vol] 0.90 mg/dL Normal 0.55-1.02 [facility] Comment on above: Performed By: #### C MP, VIJI, LIPA, CMADM ####[facility] Ptbqmfdign[address] [place], [place] [address]Dr. Tadeo Smyth EGFR-AF EGYPTIAN >60 Normal >=60 [facility] Comment on above: Performed By: #### C MP, VIJI, LIPA, CMADM ####[facility] Vhhwwtcmvm[address] [place], [place] [address]Dr. Tadeo Smyth EGFR-NON AF EGYPTIAN >60 Normal >=60 [facility] Comment on above: Performed By: #### C MP, VIJI, LIPA, CMADM ####[facility] Yzhlfnsnfk0878 [place] [address]Dr. Tadeo Smyth Globulin (S) [Mass/Vol] 3.5 g/dL Normal [facility] Comment on above: Performed By: #### C MP, VIJI, LIPA, CMADM ####[facility] Sqspcfllyn2475 [place] [address]Dr. Tadeo Smyth Glucose [Mass/Vol] 98 mg/dL Normal 74-106 [facility] Comment on above: Performed By: #### C MP, VIJI, LIPA, CMADM ####[facility] Sufxajwybi[address] [place], [place] [address]Dr. Tadeo Smyth Potassium [Moles/Vol] 3.7 mmol/L Normal 3.5-5.1 [facility] Comment on above: Performed By: #### C MP, VIJI, LIPA, CMADM ####[facility] Zeclxbjdzh4067 [place] [address]Dr. Tadeo Smyth Protein [Mass/Vol] 7.3 g/dL Normal 6.4-8.2 [facility] Comment on above: Performed By: #### C MP, VIJI, LIPA, CMADM ####[facility] Bfpiqrcsgw5[address] [place] [address]Dr. Margotnicole Haja Sodium [Moles/Vol] 139 mmol/L Normal 136-145 [facility] Comment on above: Performed By: #### C MP, VIJI, LIPA, CMADM ####[facility] Wrsvzwyqfd0211 [place] [address]Dr. Tadeo Smyth Urea nitrogen [Mass/Vol] 25.0 mg/dL Critically high 7.0-18.0 [facility] Comment on above: Performed By: #### C MP, VIJI, LIPA, CMADM ####[facility] Byihjodikg0947 [place] [address]Dr. Tadeo Smyth Urea nitrogen/Creatinine [Mass ratio] 27.8 mg/mg Normal [facility] Comment on above: Performed By: #### C MP, VIJI, LIPA, CMADM ####[facility] Gugpdanrap59[address] [place] [address]Dr. Tadeo Haja URINE MICROSCOPIC ONLYon BACTERIA NONE SEEN Normal NONE SEEN [facility] Comment on above: Performed By: #### KAROL MERCHANT ####[facility] Qfcfwrxvrr9445 [place] [address]Dr. Tadeo Smyth Bacteria identified Cx Nom (U) NOT INDICATED Normal [facility] Comment on above: Performed By: #### SANDRO MERCHANTRO ####[facility] Bhegsopgki5987 [place] [address]Dr. Tadeo Smyth CAST NONE SEEN Normal NONE SEEN [facility] Comment on above: Performed By: #### SANDRO MERCHANTRO ####[facility] Vzivkkaxev2204 [place] [address]Dr. Tadeo Smyth Crystals LM Nom (Urine sed) NONE SEEN Normal NONE SEEN [facility] Comment on above: Performed By: #### Matthew FRANCISCO UMICRO ####[facility] Tzmoblddxe9151 [place] [phone]. Tadeo Smyth Epithelial cells LM Ql (Urine sed) FEW Abnormal NONE SEEN /RARE [facility] Comment on above: Performed By: #### Matthew FRANCISCO UMICRO ####[facility] Kulafyvdzi9786 [place] [phone]. Tadeo Smyth MUCOUS NONE SEEN Normal NONE SEEN [facility] Comment on above: Performed By: #### Matthew FRANCISCO UMICRO ####[facility] Fuhfbwjeuu3671 [place] [phone]. Tadeo Smyth RBC 2-5 Abnormal 0-2 [facility] Comment on above: Performed By: #### RANDI MERCHANTICRO ####[facility] Rzsrksejrz8373 [place] [address]Dr. Tadeo Smyth WBC NONE SEEN Normal NONE SEEN [facility] Comment on above: Performed By: #### RANDI MERCHANTICRO ####[facility] Lsfrefwjpo7286 [place] [phone]. Tadeo Smyth AMYLASEon 07-21-2022 Amylase [Catalytic activity/Vol] 49 U/L Normal 25-115 [facility] Comment on above: Performed By: #### L IPA, VIJI, CMP ####[facility] Mqaplcusza0001 [place] [address]Dr. Tadeo Smyth CBC AUTO DIFFon 07-21-2022 BASO # 0.0 103/ul Normal 0.0-0.1 [facility] Comment on above: Performed By: #### C BC ####[facility] Rfucdbvihz7207 [place] [phone]. Tadeo Smyth Basophils/100 WBC (Bld) 0.6 % Normal 0.2-2.0 [facility] Comment on above: Performed By: #### C BC ####[facility] Spgklpisfd4481 [place] [address]Dr. Tadeo Smyth EO # 0.2 103/ul Normal 0.0-0.7 [facility] Comment on above: Performed By: #### C BC ####[facility] Ozhjvfzcwg1713 [place] [address]Dr. Tadeo Smyth Eosinophils/100 WBC (Bld) 3.1 % Normal 0.9-7.0 [facility] Comment on above: Performed By: #### C BC ####[facility] Xtwvrcnyuj[address] [place], [place] [address]Dr. Tadeo Smyth Erythrocyte distribution width (RBC) [Ratio] 13.2 % Normal 11.0-15.0 [facility] Comment on above: Performed By: #### C BC ####[facility] [address]jpzqnmz[address] [place], [place] [address]Dr. Tadeo Smyth Hematocrit (Bld) [Volume fraction] 35.7 % Critically low 36.0-48.0 [facility] Comment on above: Performed By: #### C BC ####[facility] Ufgyqighai[address] [place], [place] [address]Dr. Tadeo Smyth Hemoglobin (Bld) [Mass/Vol] 11.6 g/dL Critically low 12.0-16.0 The [facility] Comment on above: Performed By: #### C BC ####[facility] Fsbczuemxi[address] [place], [place] [address]Dr. Tadeo Smyth IG # 0.01 10e3/ul Normal 0.00-0.03 The [facility] Comment on above: Performed By: #### C BC ####[facility] Kmvnacjytd[address] [place], [place] [address]Dr. Tadeo Smyth IG % 0.2 % Normal 0.0-0.5 The [facility] Comment on above: Performed By: #### C BC ####[facility] Lthmxaagow09[address] [place], [place] [address]Dr. Tadeo Smyth LYMPH # 1.9 103/ul Normal 1.2-3.8 The [facility] Comment on above: Performed By: #### C BC ####[facility] Bbunqcrxmb3[address] [place], [place] [address]Dr. Tadeo Smyth Lymphocytes/100 WBC (Bld) 34.8 % Normal 20.5-60.0 [facility] Comment on above: Performed By: #### C BC ####[facility] Gbvfxzixpz2[address] [place] [address]Dr. Tadeo Smyth MANUAL DIFF REQ NO Normal The [facility] Comment on above: Performed By: #### C BC ####[facility] Qerivqbjrr5798 [place] [address]Dr. Tadeo Smyth MCH (RBC) [Entitic mass] 29.1 pg Normal 26.7-34.0 [facility] Comment on above: Performed By: #### C BC ####[facility] Eusfgvcgfq6[address] [place], [place] [address]Dr. Tadeo Smyth MCHC (RBC) [Mass/Vol] 32.5 g/dL Normal 29.9-35.2 The [facility] Comment on above: Performed By: #### C BC ####[facility] Ypkascrbnv[address] [place], [place] [address]Dr. Tadeo Smyth MCV (RBC) [Entitic vol] 89.7 fL Normal 81.0-99.0 [facility] Comment on above: Performed By: #### C BC ####[facility] Gzhujvasdx7247[address] [place], [place] [address]Dr. Tadeo Smyth MONO # 0.3 103/ul Normal 0.3-0.8 The [facility] Comment on above: Performed By: #### C BC ####[facility] Tksilnfyfa5706[address] [place], [place] [address]Dr. Tadeo Smyth Monocytes/100 WBC (Bld) 6.1 % Normal 1.7-12.0 The [facility] Comment on above: Performed By: #### C BC ####[facility] Fzpzosdzej174[address] [place], [place] [address]DrNeo Smyth NEUT # 3.0 103/ul Normal 1.4-6.5 The [facility] Comment on above: Performed By: #### C BC ####[facility] Timzdrwlgk8149[address] [place], [place] [address]DrNeo Smyth Neutrophils/100 WBC (Bld) 55.2 % Normal 43.0-75.0 [facility] Comment on above: Performed By: #### C BC ####[facility] Uqnvikmnfr8488 [place] [address]Dr. Tadeo Smyth Platelet mean volume (Bld) [Entitic vol] 9.0 fL Critically low 9.5-13.5 [facility] Comment on above: Performed By: #### C BC ####[facility] Rkpxagysfk8033 [place] [address]Dr. Tadeo Haja PLT 358 103/ul Normal 150-450 The [facility] Comment on above: Performed By: #### C BC ####[facility] Ijulvwmjtj3071 [place] [address]Dr. Tadeo Haja RBC 3.98 106/ul Critically low 4.20-5.40 The [facility] Comment on above: Performed By: #### C BC ####[facility] Uyukyfyejk498[address] [place], [place] [address]Dr. Tadeo Haja WBC 5.4 103/ul Normal 4.0-11.0 The [facility] Comment on above: Performed By: #### C BC ####[facility] Dpecnnxcst8438 [place] [address]Dr. Margotnicole Smyth LIPASEon 07-21-2022 Lipase [Catalytic activity/Vol] 54.0 U/L Critically low 73.0-393.0 [facility] Comment on above: Performed By: #### L VIJI HALL CMP ####[facility] Qefyesoxmh765[address] [place], [place] [address]Dr. Tadeo Smyth PROF 14(COMP METB)on 022 Albumin [Mass/Vol] 3.5 g/dL Normal 3.4-5.0 The [facility] Comment on above: Performed By: #### L VIJI HALL CMP ####[facility] Tmzdoexkcu06[address] [place], [place] [address]Dr. Margotnicole Smyth Albumin/Globulin [Mass ratio] 0.9 {ratio} Normal The [facility] Comment on above: Performed By: #### L VIJI HALL CMP ####[facility] Jjazjnzbro2859 [place] [address]Dr. Tadeo Smyth ALP [Catalytic activity/Vol] 127 U/L Critically high 46-116 The [facility] Comment on above: Performed By: #### L VIJI HALL, CMP ####[facility] Jolwlfbzok2447 [place] [address]Dr. Tadeo Smyth ALT [Catalytic activity/Vol] 16 U/L Normal 14-59 The [facility] Comment on above: Performed By: #### L VIJI HALL, CMP ####[facility] Hhiuiuoywc3418 [place] [address]Dr. Tadeo Smyth Anion gap [Moles/Vol] 10.6 mmol/L Normal Th e [facility] Comment on above: Performed By: #### L VIJI HALL, CMP ####[facility] Bemoipvemb1612 [place] [address]Dr. Tadeo Smyth AST [Catalytic activity/Vol] 16 U/L Normal 15-37 [facility] Comment on above: Performed By: #### L VIJI HALL, CMP ####[facility] Vzbbspqmtc2563 [place] [address]Dr. Tadeo Smyth Bilirubin [Mass/Vol] 0.3 mg/dL Normal 0.2-1.0 The [facility] Comment on above: Performed By: #### L VIJI HALL, CMP ####[facility] Ugfxnhxtym5913 [place] [address]Dr. Tadeo Smyth Calcium [Mass/Vol] 9.1 mg/dL Normal 8.5-10.1 The [facility] Comment on above: Performed By: #### L VIJI HALL, CMP ####[facility] Pnsdspaguv7075 [place] [address]Dr. Tadeo Smtyh Chloride [Moles/Vol] 104 mmol/L Normal 98-107 The [facility] Comment on above: Performed By: #### L VIJI HALL, CMP ####[facility] Xkemuozxxs9603 [place] [address]Dr. Tadeo Smyth CO2 [Moles/Vol] 28.0 mmol/L Normal 21.0-32.0 The [facility] Comment on above: Performed By: #### L VIJI HALL, CMP ####[facility] Pqwdbjztio2696 [place] [address]Dr. Tadeo Smyth Creatinine [Mass/Vol] 0.96 mg/dL Normal 0.55-1.02 The [facility] Comment on above: Performed By: #### L ISABEL VIJI, CMP ####[facility] Znervlefvr5483 [place] [address]Dr. Tadeo Smyth EGFR-AF EGYPTIAN >60 Normal >=60 The [facility] Comment on above: Performed By: #### L ISABEL VIJI, CMP ####[facility] Twlrhlxrbz8973 [place] [address]Dr. Tadeo Smyth EGFR-NON AF EGYPTIAN >60 Normal >=60 The [facility] Comment on above: Performed By: #### L ISABEL VIJI, CMP ####[facility] Pnlqgfdpmj1175[address] [place], [place] [address]Dr. Tadeo Haja Globulin (S) [Mass/Vol] 3.8 g/dL Normal The [facility] Comment on above: Performed By: #### L ISABEL VIJI, CMP ####[facility] Pyujukfpfb4855[address] [place], [place] [address]Dr. Tadeo Smyth Glucose [Mass/Vol] 93 mg/dL Normal 74-106 The [facility] Comment on above: Performed By: #### L ISABEL VIJI, CMP ####[facility] Ymtwmyhovx85[address] [place], [place] [address]Dr. Tadeo Smyth Potassium [Moles/Vol] 3.6 mmol/L Normal 3.5-5.1 The [facility] Comment on above: Performed By: #### L ISABEL VIJI, CMP ####[facility] Baypexsfqu8[address] [place], [place] [address]Dr. Tadeo Smyth Protein [Mass/Vol] 7.3 g/dL Normal 6.4-8.2 The [facility] Comment on above: Performed By: #### L ISABEL VIJI, CMP ####[facility] Nzmraqxoou[address] [place], [place] [address]Dr. Tadeo Smyth Sodium [Moles/Vol] 139 mmol/L Normal 136-145 The [facility] Comment on above: Performed By: #### L VIJI HALL, CMP ####[facility] Mmquzcpcen0272 [place] [address]Dr. Tadeo Smyth Urea nitrogen [Mass/Vol] 16.0 mg/dL Normal 7.0-18.0 The [facility] Comment on above: Performed By: #### L IPA VIJI, CMP ####[facility] Bnhqufclxd4382 [place] [address]Dr. Tadeo Haja Urea nitrogen/Creatinine [Mass ratio] 16.7 mg/mg Normal The [facility] Comment on above: Performed By: #### L VIJI HALL, CMP ####[facility] Trpiesyobr24[address] [place], [place] [address]Dr. Tadeo Haja XR ABD FLAT UP_PA Kasey 07-21 XR ABD FLAT UP_PA CH Normal The [facility] CULTURE URINEon 07-10-2022 CULTURE URINE Normal The [facility] Comment on above: Performed By: #### U RCX ####[facility] Opalehzdxc5822[address] [place], [place] [address]Dr. Tadeo Haja INSULINon 07-09-2022 Insulin 15.9 uIU/mL Normal 2.6-24.9 The [facility] Comment on above: Performed By: #### I NSULIN ####[facility] Iogghbcqsb0932[address] [place], [place] [address]Dr. Tadeo Haja CBC AUTO DIFFon 07-08-2022 BASO # 0.0 103/ul Normal 0.0-0.1 The [facility] Comment on above: Performed By: #### C BC ####[facility] Qfhaecypaj958[address] [place], [place] [address]Dr. Tadeo Haja Basophils/100 WBC (Bld) 0.6 % Normal 0.2-2.0 The [facility] Comment on above: Performed By: #### C BC ####[facility] Thivbhucgl767[address] [place], [place] [address]Dr. Tadeo Smyth EO # 0.2 103/ul Normal 0.0-0.7 The [facility] Comment on above: Performed By: #### C BC ####[facility] Whdkjodjsu7289 [place] [id number]. Tadeo Smyth Eosinophils/100 WBC (Bld) 3.4 % Normal 0.9-7.0 The [facility] Comment on above: Performed By: #### C BC ####[facility] Kmmnyppkgo4661 [place] [phone]. Tadeo Smyth Erythrocyte distribution width (RBC) [Ratio] 13.1 % Normal 11.0-15.0 The [facility] Comment on above: Performed By: #### C BC ####[facility] Yoxivomtur[address] [place], [place] [address]Dr. Tadeo Smyth Hematocrit (Bld) [Volume fraction] 42.4 % Normal 36.0-48.0 The [facility] Comment on above: Performed By: #### C BC ####[facility] Rihlnebepf3233[address] [place], [place] [address]Dr. Tadeo Smyth Hemoglobin (Bld) [Mass/Vol] 13.7 g/dL Normal 12.0-16.0 The [facility] Comment on above: Performed By: #### C BC ####[facility] Icdiaaqvhr646[address] [place], [place] [address]Dr. Tadeo Smyth IG # 0.01 10e3/ul Normal 0.00-0.03 [facility] Comment on above: Performed By: #### C BC ####[facility] Pulhkdmnkb1765 [place] [address]Dr. Tadeo Smyth IG % 0.2 % Normal 0.0-0.5 [facility] Comment on above: Performed By: #### C BC ####[facility] Fjnqljawyk25[address] [place], [place] [address]Dr. Tadeo Smyth LYMPH # 2.1 103/ul Normal 1.2-3.8 The [facility] Comment on above: Performed By: #### C BC ####[facility] Boavnpypyg2194[address] [place], [place] [address]Dr. Tadeo Smyth Lymphocytes/100 WBC (Bld) 41.2 % Normal 20.5-60.0 [facility] Comment on above: Performed By: #### C BC ####[facility] Ivxcowpzhe7166 [place] [id number]. Tadeo Smyth MANUAL DIFF REQ NO Normal The [facility] Comment on above: Performed By: #### C BC ####[facility] Brjgylrzgq0751 [place] [phone]. Tadeo Smyth MCH (RBC) [Entitic mass] 28.8 pg Normal 26.7-34.0 [facility] Comment on above: Performed By: #### C BC ####[facility] Jjrgvxyaif3[address] [place], [place] [address]Dr. Tadeo Smyth MCHC (RBC) [Mass/Vol] 32.3 g/dL Normal 29.9-35.2 [facility] Comment on above: Performed By: #### C BC ####[facility] Odcaprnoio7216[address] [place], [place] [address]Dr. Tadeo Smyth MCV (RBC) [Entitic vol] 89.3 fL Normal 81.0-99.0 [facility] Comment on above: Performed By: #### C BC ####[facility] Fuxaqceukf[address] [place], [place] [address]Dr. Tadeo Smyth MONO # 0.4 103/ul Normal 0.3-0.8 [facility] Comment on above: Performed By: #### C BC ####[facility] Egbkminnam36[address] [place], [place] [address]Dr. Tadeo Haja Monocytes/100 WBC (Bld) 8.1 % Normal 1.7-12.0 The [facility] Comment on above: Performed By: #### C BC ####[facility] Hxbphcbime107[address] [place], [place] [address]Dr. Tadeo Smyth NEUT # 2.4 103/ul Normal 1.4-6.5 [facility] Comment on above: Performed By: #### C BC ####[facility] Kkvuxbjjon023[address] [place], [place] [address]Dr. Tadeo Smyth Neutrophils/100 WBC (Bld) 46.5 % Normal 43.0-75.0 [facility] Comment on above: Performed By: #### C BC ####[facility] Minrjcikeq9494 [place] [phone]. Tadeo Smyth Platelet mean volume (Bld) [Entitic vol] 9.3 fL Critically low 9.5-13.5 [facility] Comment on above: Performed By: #### C BC ####[facility] Pbdxlrsyos7419 [place], [place] [address]Gq. Tadeo Smyth PLT 443 103/ul Normal 150-450 [facility] Comment on above: Performed By: #### C BC ####[facility] Uwkuyxicnt5032 [place] [phone]. Tadeo Smyth RBC 4.75 106/ul Normal 4.20-5.40 [facility] Comment on above: Performed By: #### C BC ####[facility] Rmrfbetlfa5268 [place] [phone]. Tadeo Smyth WBC 5.1 103/ul Normal 4.0-11.0 The [facility] Comment on above: Performed By: #### C BC ####[facility] Kvcvpzexdr9110 [place] [phone]. Tadeo Smyth FREE THYROXINE INDEX T7on FTI 2.91 Normal 1.30-4.50 [facility] Comment on above: Performed By: #### T 7, LIPID, TSH, CMP ####[facility] Nrppbkbdel7064 [place] [phone]. Tadeo Smyth T3U 31.0 % Normal 30.0-39.0 [facility] Comment on above: Performed By: #### T 7, LIPID, TSH, CMP ####[facility] Qzrwxzklvy9931 [place] [phone]. Tadeo Smyth T4 [Mass/Vol] 9.40 ug/dL Normal 4.80-13.90 [facility] Comment on above: Performed By: #### T 7, LIPID, TSH, CMP ####[facility] Oiffyuwvmx1208 [place] [phone]. Tadeo Smyth GLYCOHEMOGLOBIN A1Con 2021 ADA RECOMMENDATION SEE BELOW Normal The [facility] Comment on above: Result Comment: ADA RECOMMENDED LIMIT 4.0 - 6.0 ADA THERAPEUTIC TARGET < 7.0 ACTION SUGGESTED > 7.0 Performed By: #### A 1C ####[facility] Pqnecmwhrb5997 [place] [address]Dr. Tadeo Smyth Glucose [Mass/Vol] 120 mg/dL Normal [facility] Comment on above: Performed By: #### A 1C ####[facility] Ytfydepmlt[address] [place], [place] [address]Dr. Tadeo Smyth HbA1c (Bld) [Mass fraction] 5.8 % Normal 4.5-6.2 The [facility] Comment on above: Performed By: #### A 1C ####[facility] Nhcgzjqclc00[address] [place], [place] [address]Dr. Tadeo Smyth IRONon 07-08-2022 Iron [Mass/Vol] 59.0 ug/dL Normal 50.0-170.0 [facility] Comment on above: Performed By: #### I KEEGAN ####[facility] Oluddeiwws2[address] [place], [place] [address]Dr. Tadeo Smyth LIPID PROFILEon 07-08-2022 CHOL-HDL RATIO NORM SEE BELOW Normal The [facility] Comment on above: Result Comment: 3.3 - 4.4 LOW RISK 4.4 - 7.1 AVERAGE RISK 7.1 - 11.0 MODERATE RISK >11.0 HIGH RISK Performed By: #### T 7, LIPID, TSH, CMP ####[facility] Bejsdwrslm74[address] [place], [place] [address]Dr. Tadeo Smyth Cholesterol [Mass/Vol] 227 mg/dL Critically high <=200 The [facility] Comment on above: Performed By: #### T 7, LIPID, TSH, CMP ####[facility] Xsamoqjlks[address] [place], [place] [address]Dr. Tadeo Smyth Cholesterol in HDL [Mass/Vol] 67 mg/dL Critically high 40-60 The [facility] Comment on above: Performed By: #### T 7, LIPID, TSH, CMP ####[facility] Hrdzlqnwkr[address] [place], [place] [address]Dr. Tadeo Smyth Cholesterol in LDL [Mass/Vol] 139.0 mg/dL Normal The [facility] Comment on above: Performed By: #### T 7, LIPID, TSH, CMP ####[facility] Hjxcahuwos5241 [place] [address]Dr. Tadeo Smyth Cholesterol.total/Cho lesterol in HDL [Mass ratio] 3.4 {ratio} Normal [facility] Comment on above: Performed By: #### T 7, LIPID, TSH, CMP ####[facility] Ocnwpmslxb5[address] [place] [address]Dr. Tadeo Smyth HDL NORMAL > or = 60 mg/dl - LO W CARDIOVASCULAR RISK <40 mg/dl - HIGH CARDIOVASCULAR RISK Normal [facility] Comment on above: Performed By: #### T 7, LIPID, TSH, CMP ####[facility] Jzcntuiezv2042 [place] [address]Dr. Tadeo Smyth LDL CALC NORMAL SEE BELOW Normal [facility] Comment on above: Result Comment: <100 mg/dl OPTIMAL 100 - 129 mg/dl NEAR OR ABOVE OPTIMAL 130 - 159 mg/dl BORDERLINE HIGH 160 - 189 mg/dl HIGH >190 mg/dl VERY HIGH Performed By: #### T 7, LIPID, TSH, CMP ####[facility] Lqpdoxzjjo1865 [place] [address]Dr. Tadeo Smyth Triglyceride [Mass/Vol] 105 mg/dL Normal <=150 [facility] Comment on above: Performed By: #### T 7, LIPID, TSH, CMP ####[facility] Alpzfmgrhe5081 [place] [phone]. Tadeo Smyth VLDL CALC 21.0 mg/dL Normal The [facility] Comment on above: Performed By: #### T 7, LIPID, TSH, CMP ####[facility] Cbwvavkkwj5641 [place] [phone]. Tadeo Smyth OCC BLD IMMUNO SCREENon OCCULT BLOOD Negative Normal NEGATIVE [facility] Comment on above: Performed By: #### O BSCRN ####[facility] Tajpmdkbwb6533 [place] [phone]. Tadeo Smyth PROF 14(COMP METB)on 022 Albumin [Mass/Vol] 3.7 g/dL Normal 3.4-5.0 [facility] Comment on above: Performed By: #### T 7, LIPID, TSH, CMP ####[facility] Pdgbzxatnh9636 [place] [address]Dr. Tadeo Smyth Albumin/Globulin [Mass ratio] 0.8 {ratio} Normal [facility] Comment on above: Performed By: #### T 7, LIPID, TSH, CMP ####[facility] Qyztlsxmiq13[address] [place], [place] [address]Dr. Margotnicole Smyth ALP [Catalytic activity/Vol] 141 U/L Critically high 46-116 [facility] Comment on above: Performed By: #### T 7, LIPID, TSH, CMP ####[facility] Qmhybslgup6680[address] [place], [place] [address]Dr. Tadeo Smyth ALT [Catalytic activity/Vol] 23 U/L Normal 14-59 [facility] Comment on above: Performed By: #### T 7, LIPID, TSH, CMP ####[facility] Zacfuqdzei06[address] [place], [place] [address]Dr. Tadeo Smyth Anion gap [Moles/Vol] 9.8 mmol/L Normal [facility] Comment on above: Performed By: #### T 7, LIPID, TSH, CMP ####[facility] Okabpqjzgi47[address] [place], [place] [address]Dr. Margotnicole Smyth AST [Catalytic activity/Vol] 13 U/L Critically low 15-37 [facility] Comment on above: Performed By: #### T 7, LIPID, TSH, CMP ####[facility] Eawlygzeby3[address] [place], [place] [address]Dr. Tadeo Smyth Bilirubin [Mass/Vol] 0.4 mg/dL Normal 0.2-1.0 [facility] Comment on above: Performed By: #### T 7, LIPID, TSH, CMP ####[facility] Sqjnmqxwff387[address] [place], [place] [address]Dr. Tadeo Smyth Calcium [Mass/Vol] 10.2 mg/dL Critically high 8.5-10.1 [facility] Comment on above: Performed By: #### T 7, LIPID, TSH, CMP ####[facility] Vtxmnkhbgy2447 [place] [address]Dr. Tadeo Smyth Chloride [Moles/Vol] 101 mmol/L Normal 98-107 [facility] Comment on above: Performed By: #### T 7, LIPID, TSH, CMP ####[facility] Kleftxztub7813 [place] [address]Dr. Tadeo Smyth CO2 [Moles/Vol] 32.8 mmol/L Critically high 21.0-32.0 [facility] Comment on above: Performed By: #### T 7, LIPID, TSH, CMP ####[facility] Bpoicebzpf[address] [place], [place] [address]Dr. Tadeo Smyth Creatinine [Mass/Vol] 0.92 mg/dL Normal 0.55-1.02 [facility] Comment on above: Performed By: #### T 7, LIPID, TSH, CMP ####[facility] Cirnvjrrti8[address] [place], [place] [address]Dr. Tadeo Smyth EGFR-AF EGYPTIAN >60 Normal >=60 [facility] Comment on above: Performed By: #### T 7, LIPID, TSH, CMP ####[facility] Tfcxpxmmof[address] [place], [place] [address]Dr. Tadeo Smyth EGFR-NON AF EGYPTIAN >60 Normal >=60 [facility] Comment on above: Performed By: #### T 7, LIPID, TSH, CMP ####[facility] [address]hdqliybqd[address] [place], [place] [address]Dr. Tadeo Smyth Globulin (S) [Mass/Vol] 4.8 g/dL Normal [facility] Comment on above: Performed By: #### T 7, LIPID, TSH, CMP ####[facility] Bquizkfqev[address] [place], [place] [address]Dr. Tadeo Smyth Glucose [Mass/Vol] 114 mg/dL Critically high 74-106 [facility] Comment on above: Performed By: #### T 7, LIPID, TSH, CMP ####[facility] Yhrprzrdqy[address] [place], [place] [address]Dr. Tadeo Smyth Potassium [Moles/Vol] 3.6 mmol/L Normal 3.5-5.1 [facility] Comment on above: Performed By: #### T 7, LIPID, TSH, CMP ####[facility] [address] [place] [address]Dr. Tadeo Smyth Protein [Mass/Vol] 8.5 g/dL Critically high 6.4-8.2 [facility] Comment on above: Performed By: #### T 7, LIPID, TSH, CMP ####[facility] Eunmzfzdtr8[address] [place], [place] [address]Dr. Tadeo Smyth Sodium [Moles/Vol] 140 mmol/L Normal 136-145 [facility] Comment on above: Performed By: #### T 7, LIPID, TSH, CMP ####[facility] Htwpziynjd[address] [place] [address]Dr. Tadeo Smyth Urea nitrogen [Mass/Vol] 23.0 mg/dL Critically high 7.0-18.0 [facility] Comment on above: Performed By: #### T 7, LIPID, TSH, CMP ####[facility] Ytzcuwicfl[address] [place], [place] [address]Dr. Tadeo Smyth Urea nitrogen/Creatinine [Mass ratio] 25.0 mg/mg Normal [facility] Comment on above: Performed By: #### T 7, LIPID, TSH, CMP ####[facility] Fp[address]elqi[address] [place] [address]Dr. Tadeo Smyth TSHon 07-08-2022 TSH 3.748 uIU/mL Critically high 0.358-3.740 [facility] Comment on above: Performed By: #### T 7, LIPID, TSH, CMP ####[facility] Hilpsgmtuy88[address] [place], [place] [address]Dr. Tadeo Smyth UA RANDOM W/MICROSCOPICon BACTERIA TRACE Abnormal NONE SEEN The [facility] Comment on above: Performed By: #### U AMIC ####[facility] Dmmxgfcyqb[address] [place] [address]Dr. Tadeo Smyth Bilirubin Ql (U) Negative Normal NEGATIVE [facility] Comment on above: Performed By: #### U AMIC ####[facility] Gnvryqrwfn35[address] [place] [address]Dr. Tadeo Smyth CAST NONE SEEN Normal NONE SEEN [facility] Comment on above: Performed By: #### U AMIC ####[facility] Orjoqvizmq12[address] [place] [address]Dr. Tadeo Smyth Clarity (U) CLEAR Normal CLEAR [facility] Comment on above: Performed By: #### U AMIC ####[facility] Ginbhcjebz[address]361 [place] [address]Dr. Tadeo Smyth Color (U) YELLOW Normal YELLOW [facility] Comment on above: Performed By: #### U AMIC ####[facility] Xzwbedhajg96[address] [place], [place] [address]Dr. Tadeo Smyth Crystals LM Nom (Urine sed) NONE SEEN Normal NONE SEEN [facility] Comment on above: Performed By: #### U AMIC ####[facility] Ovkhbpfonf[address] [place], [place] [address]Dr. Tadeo Smyth Epithelial cells LM Ql (Urine sed) FEW Abnormal NONE SEEN /RARE [facility] Comment on above: Performed By: #### U AMIC ####[facility] Wichsttebe40[address] [place], [place] [address]Dr. Tadeo Smyth Glucose Ql (U) Negative Normal NEGATIVE [facility] Comment on above: Performed By: #### U AMIC ####[facility] Vzjrwycnef4[address] [place], [place] [address]Dr. Tadeo Smyth Hemoglobin Ql (U) SMALL Abnormal NEGATIVE [facility] Comment on above: Performed By: #### U AMIC ####[facility] Eucmbdeqyw4724[address] [place], [place] [address]Dr. Tadeo Smyth Ketones Ql (U) TRACE Abnormal NEGATIVE [facility] Comment on above: Performed By: #### U AMIC ####[facility] Xsucvetuyd3[address] [place] [address]Dr. Tadeo Smyth LEUKOCYTES TRACE Abnormal NEGATIVE [facility] Comment on above: Performed By: #### U AMIC ####[facility] Ozmhvmgfjh2927[address] [place], [place] [address]Dr. Tadeo Smyth MUCOUS NONE SEEN Normal NONE SEEN [facility] Comment on above: Performed By: #### U AMIC ####[facility] Pvvimmvczj7378 [place] [address]Dr. Tadeo Smyth Nitrite Ql (U) Negative Normal NEGATIVE [facility] Comment on above: Performed By: #### U AMIC ####[facility] Hvdgfpdqso45[address] [place] [address]Dr. Tadeo Smyth pH (U) 6.5 [pH] Normal 5-9 [facility] Comment on above: Performed By: #### U AMIC ####[facility] Ywtmmenbnr6[address] [place], [place] [address]Dr. Tadeo Haja RBC 5-10 Abnormal 0-2 [facility] Comment on above: Performed By: #### U AMIC ####[facility] Fiwzuooynb4[address] [place], [place] [address]Dr. Tadeo Smyth SPEC GRAVITY 1.020 Normal 1.005-<=1.0 25 [facility] Comment on above: Performed By: #### U AMIC ####[facility] Ifxncdituy016[address] [place], [place] [address]Dr. Margotnicole Smyth UA PROTEIN 30 mg/dl Abnormal NEGATIVE/ TRACE [facility] Comment on above: Performed By: #### U AMIC ####[facility] Yqhahareiq62[address] [place] [address]Dr. Tadeo Smyth Urobilinogen Qn (U) 0.2 {Benito'U}/dL Normal 0.2 - 1. 0 [facility] Comment on above: Performed By: #### U AMIC ####[facility] Vktvxpgxju6787[address] [place], [place] [address]Dr. Tadeo Smyth WBC 2-5 Abnormal NONE SEEN [facility] Comment on above: Performed By: #### U AMIC ####[facility] Oqzvjzxgtf68[address] [place], [place] [address]Dr. Tadeo Haja Covid-19 PCR ([facility])on 06-07 SARS-CoV-2 (COVID-19) RNA CHEN+probe Ql (Unsp spec) Not detected Normal NOT DETECTED The [facility] Comment on above: Result Comment: When [...] for this test is supported by the [employer] of Health and Human Service's declaration that [...] be used). Performed By: #### C VDTBH ####[facility] Pgmfzexbws6[address] [place], [place] [address]Dr. Tadeo Smyth CULTURE URINEon 06-09-2022 CULTURE URINE Normal [facility] Comment on above: Performed By: #### U RCX ####[facility] Zlzydycfol65[address] [place], [place] [address]DrNeo Smyth GI PANEL (PCR)on 06-07-2022 Adenovirus F 40/41 Not detected Normal NOT DETECTED [facility] Comment on above: Performed By: #### G IPANEL ####[facility] Torjwwpbey9725[address] [place], [place] [address]Dr. Tadeo Smyth Astrovirus Not detected Normal NOT DETECTED [facility] Comment on above: Performed By: #### G IPANEL ####[facility] Vqpmmiueqw9[address] [place], [place] [address]DrNeo Smyth C. Diff toxin A/B Not detected Normal NOT DETECTED [facility] Comment on above: Performed By: #### G IPANEL ####[facility] Putsdwgjqe9848[address] [place], [place] [address]Dr. Tadeo Smyth Campylobacter Not detected Normal NOT DETECTED [facility] Comment on above: Performed By: #### G IPANEL ####[facility] Ywwrjtjmdm4127[address] [place], [place] [address]Dr. Tadeo Smyth Cryptosporidium Not detected Normal NOT DETECTED [facility] Comment on above: Performed By: #### G IPANEL ####[facility] F[address]vqj[address] [place], [place] [address]Dr. Tadeo Smyth Cyclos. Cayetanensis Not detected Normal NOT DETECTED The [facility] Comment on above: Performed By: #### G IPANEL ####[facility] Fxnnleamnl[address] [place], [place] [address]Dr. Tadeo Smyth E. Coli O157 Not Applicable Normal Not Applicable [facility] Comment on above: Performed By: #### G IPANEL ####[facility] Mbrykspptf7[address] [place], [place] [address]Dr. Tadeo Smyth E. histolytica Not detected Normal NOT DETECTED [facility] Comment on above: Performed By: #### G IPANEL ####[facility] Cqmstzjknc[address] [place], [place] [address]Dr. Tadeo Smyth EAEC Not detected Normal NOT DETECTED [facility] Comment on above: Performed By: #### G IPANEL ####[facility] Uvbqvokear9[address] [place], [place] [address]Dr. Tadeo Smyth EIEC Not detected Normal NOT DETECTED [facility] Comment on above: Performed By: #### G IPANEL ####[facility] Cnmqfnmapv8237[address] [place], [place] [address]Dr. Tadeo Smyth EPEC Not detected Normal NOT DETECTED [facility] Comment on above: Performed By: #### G IPANEL ####[facility] Dtalwlzdgf9[address] [place], [place] [address]Dr. Tadeo Smyth ETEC Not detected Normal NOT DETECTED [facility] Comment on above: Performed By: #### G IPANEL ####[facility] Ojzrbyjozf[address] [place], [place] [address]Dr. Margotnicole Smyth G. Lamblia Not detected Normal NOT DETECTED The [facility] Comment on above: Performed By: #### G IPANEL ####[facility] [address] [place] [id number]. Margotnicole Haja MEZAANEL CONTROLS PASSED Normal [facility] Comment on above: Performed By: #### G IPANEL ####[facility] Ijropitrbj[address] [place], [place] [address]Dr. Tdaeo MEZA ARRON HEADER GI PANEL BACTERIA Normal T [facility] Comment on above: Performed By: #### G IPANEL ####[facility] Dxk[address]quk2264 [place] [id number]. Tadeo CACERESHD ECOLI GI PANEL DIARRHEAGEN IC E.COLI / SHIGELLA Normal [facility] Comment on above: Performed By: #### G IPANEL ####[facility] Gydiqfqijl[address] [place], [place] [address]Dr. Margotnicole Haja CACERESHD INFO SEE BELOW Normal [facility] Comment on above: Result Comment: EAEC - Enteroaggregative E. Coli EPEC- Enteropathogenic E. Coli ETEC- Enterotoxigenic E. Coli lt/st STEC- Shigella-like toxin-producing E. Coli stx1/stx2 EIEC- Shigella/Enteroinvasive E. Coli Performed By: #### G IPANEL ####[facility] Vmpqimoooj4[address] [place], [place] [address]Dr. Margotnicole Haja GIPNLHD PARASITES GI PANEL PARASITES Normal [facility] Comment on above: Performed By: #### G IPANEL ####[facility] Qtbktpshzk[address] [place], [place] [address]Dr. Tadeo MEZANLHD VIRUS GI PANEL VIRUSES Normal The [facility] Comment on above: Performed By: #### G IPANEL ####[facility] Hacmtlovaj[address] [place], [place] [address]Dr. Tadeo Smyth Norovirus GI/GII Not detected Normal NOT DETECTED The [facility] Comment on above: Performed By: #### G IPANEL ####[facility] Fuubpegdmi[address] [place], [place] [address]Dr. Tadeo Smyth P. Shigelloides Not detected Normal NOT DETECTED The [facility] Comment on above: Performed By: #### G IPANEL ####[facility] Ewcmfzdnnh213[address] [place], [place] [address]Dr. Tadeo Smyth Rotavirus A Not detected Normal NOT DETECTED [facility] Comment on above: Performed By: #### G IPANEL ####[facility] Ehexduvpfu[address] [place], [place] [address]Dr. Tadeo Smyth Salmonella Not detected Normal NOT DETECTED [facility] Comment on above: Performed By: #### G IPANEL ####[facility] Nkwxspbcri[address] [place], [place] [address]Dr. Tadeo Smyth Sapovirus Not detected Normal NOT DETECTED [facility] Comment on above: Performed By: #### G IPANEL ####[facility] Swuusozdie9[address] [place], [place] [address]Dr. Tadeo Smyth STEC Not detected Normal NOT DETECTED [facility] Comment on above: Performed By: #### G IPANEL ####[facility] Hoivhxovyr5564[address] [place], [place] [address]Dr. Tadeo Smyth Vibrio Not detected Normal NOT DETECTED [facility] Comment on above: Performed By: #### G IPANEL ####[facility] Lwtoaukbqk[address] [place], [place] [address]Dr. Tadeo Smyth Vibrio Cholera Not detected Normal NOT DETECTED [facility] Comment on above: Performed By: #### G IPANEL ####[facility] Yxwouvrqeh[address] [place], [place] [address]Dr. Tadeo Smyth Y. Enterocolitica Not detected Normal NOT DETECTED [facility] Comment on above: Performed By: #### G IPANEL ####[facility] Tpjfzipkwf[address] [place], [place] [address]Dr. Tadeo Smyth AMYLASEon 06-06-2022 Amylase [Catalytic activity/Vol] 61 U/L Normal 25-115 [facility] Comment on above: Performed By: #### A MY, LIPA ####[facility] Hbgahftjvy[address] [place], [place] [address]Dr. Tadeo Smyth CBC AUTO DIFFon 06-06-2022 BASO # 0.0 103/ul Normal 0.0-0.1 [facility] Comment on above: Performed By: #### C BC ####[facility] Iqkdf[address]jwqj67[address] [place] [id number]. Tadeo Smyth Basophils/100 WBC (Bld) 0.5 % Normal 0.2-2.0 [facility] Comment on above: Performed By: #### C BC ####[facility] Yskqiysdus7241 [place] [phone]. Tadeo Smyth EO # 0.2 103/ul Normal 0.0-0.7 [facility] Comment on above: Performed By: #### C BC ####[facility] Hvhuxjlctn[address] [place], [place] [address]Dr. Tadeo Smyth Eosinophils/100 WBC (Bld) 3.4 % Normal 0.9-7.0 [facility] Comment on above: Performed By: #### C BC ####[facility] Krqwohycsa[address] [place], [place] [address]Dr. Tadeo Smyth Erythrocyte distribution width (RBC) [Ratio] 13.2 % Normal 11.0-15.0 [facility] Comment on above: Performed By: #### C BC ####[facility] I[address]jtirjx[address] [place], [place] [address]Dr. Tadeo Smyth Hematocrit (Bld) [Volume fraction] 38.3 % Normal 36.0-48.0 [facility] Comment on above: Performed By: #### C BC ####[facility] Sjxqahoxjm4073 [place] [phone]. Tadeo Smyth Hemoglobin (Bld) [Mass/Vol] 12.0 g/dL Normal 12.0-16.0 [facility] Comment on above: Performed By: #### C BC ####[facility] Ksqaaarivz8971 [place] [phone]. Tadeo Smyth IG # 0.01 10e3/ul Normal 0.00-0.03 [facility] Comment on above: Performed By: #### C BC ####[facility] O[address]ucnxohre[address] [place], [place] [address]Dr. Tadeo Smyth IG % 0.2 % Normal 0.0-0.5 [facility] Comment on above: Performed By: #### C BC ####[facility] Xjyiiioyma3199 [place] [phone]. Tadeo Smyth LYMPH # 1.7 103/ul Normal 1.2-3.8 [facility] Comment on above: Performed By: #### C BC ####[facility] Yhgebxdxtf3371 [place] [phone]. Tadeo Smyth Lymphocytes/100 WBC (Bld) 28.1 % Normal 20.5-60.0 [facility] Comment on above: Performed By: #### C BC ####[facility] O[address]keu0030 [place] [phone]. Tadeo Haja MANUAL DIFF REQ NO Normal [facility] Comment on above: Performed By: #### C BC ####[facility] Cfkvxfvrpz4863 [place] [phone]. Tadeo Smyth MCH (RBC) [Entitic mass] 28.5 pg Normal 26.7-34.0 [facility] Comment on above: Performed By: #### C BC ####[facility] Dqrfqsijqr4109 [place] [phone]. Tadeo Smyth MCHC (RBC) [Mass/Vol] 31.3 g/dL Normal 29.9-35.2 [facility] Comment on above: Performed By: #### C BC ####[facility] Jzqfmfooyz9842 [place] [phone]. Tadeo Smyth MCV (RBC) [Entitic vol] 91.0 fL Normal 81.0-99.0 [facility] Comment on above: Performed By: #### C BC ####[facility] Kziehhcnnm37[address] [place] [phone]. Tadeo Smyth MONO # 0.4 103/ul Normal 0.3-0.8 [facility] Comment on above: Performed By: #### C BC ####[facility] Svolngpcly8189 [place] [phone]. Tadeo Haja Monocytes/100 WBC (Bld) 7.1 % Normal 1.7-12.0 [facility] Comment on above: Performed By: #### C BC ####[facility] Dqrjdqnzpy3525 [place] [phone]. Tadeo Smyth NEUT # 3.6 103/ul Normal 1.4-6.5 [facility] Comment on above: Performed By: #### C BC ####[facility] Dqnzgaqlnm0345 [place] [address]Dr. Tadeo Smyth Neutrophils/100 WBC (Bld) 60.7 % Normal 43.0-75.0 [facility] Comment on above: Performed By: #### C BC ####[facility] Oqsywywzks2454 [place] [address]Dr. Tadeo Smyth Platelet mean volume (Bld) [Entitic vol] 8.9 fL Critically low 9.5-13.5 [facility] Comment on above: Performed By: #### C BC ####[facility] C[address]jvbkomb[address] [place] [address]Dr. Tadeo Smyth PLT 374 103/ul Normal 150-450 [facility] Comment on above: Performed By: #### C BC ####[facility] K[address]ufasjdo[address] [place], [place] [address]Dr. Tadeo Smyth RBC 4.21 106/ul Normal 4.20-5.40 [facility] Comment on above: Performed By: #### C BC ####[facility] Iseliwmxrg7[address] [place] [address]Dr. Tadeo Smyth WBC 5.9 103/ul Normal 4.0-11.0 [facility] Comment on above: Performed By: #### C BC ####[facility] Dgmdpadbck[address] [place], [place] [address]Dr. Tadeo Smyth CT ABD/PELV W CONon 06-06-[address] ABD/PELV W CON Normal [facility] ER URINE PROFILEon 2 Bilirubin Ql (U) Negative Normal NEGATIVE [facility] Comment on above: Performed By: #### E KAROL FRANCISCO ####[facility] Acmhnjjhis[address] [place] [address]Dr. Tadeo Smyth Clarity (U) CLOUDY Abnormal CLEAR [facility] Comment on above: Performed By: #### E NOLAN, UMICRO ####[facility] J[address]wambzpq[address] [place], [place] [address]Dr. Tadeo Smyth Color (U) LT. YELLOW Normal YELLOW [facility] Comment on above: Performed By: #### SANDRO MERCHANTRO ####[facility] Xzkteoqikf45[address] [place] [address]Dr. Tadeo Smyth ERUAHD A micrscopic examina tion will be performed if indicated. Normal [facility] Comment on above: Performed By: #### SANDRO MERCHANTRO ####[facility] Gijiundaes[address] [place], [place] [address]Dr. Tadeo Smyth Glucose Ql (U) Negative Normal NEGATIVE [facility] Comment on above: Performed By: #### Matthew FRANCISCO ICRO ####[facility] Imatopqeqn18[address] [place], [place] [address]Dr. Tadeo Smyth Hemoglobin Ql (U) TRACE-INTACT Abnormal NEGATIVE The [facility] Comment on above: Performed By: #### Matthew FRANCISCO ICRO ####[facility] Onxymbqqgd65[address] [place], [place] [address]Dr. Tadeo Smyth Ketones Ql (U) Negative Normal NEGATIVE [facility] Comment on above: Performed By: #### SANDRO MERCHANTRO ####[facility] Jtnpnuldcv[address] [place], [place] [address]Dr. Tadeo Smyth LEUKOCYTES SMALL Abnormal NEGATIVE [facility] Comment on above: Performed By: #### SANDRO MERCHANTRO ####[facility] [address]izdcxwcti[address] [place], [place] [address]Dr. Tadeo Smyth Nitrite Ql (U) Negative Normal NEGATIVE [facility] Comment on above: Performed By: #### SANDRO MERCHANTRO ####[facility] [address]hrhfnesp[address] [place] [address]Dr. Tadeo Smyth pH (U) 6.0 [pH] Normal 5-9 [facility] Comment on above: Performed By: #### SANDRO MERCHANTRO ####[facility] Etshyurxcb[address] [place], [place] [address]Dr. Tadeo Smyth SPEC GRAVITY 1.020 Normal 1.005-<=1.0 25 [facility] Comment on above: Performed By: #### KAROL MERCHANT ####[facility] Uktnvekcqx[address] [place] [address]Dr. Tadeo Smyth UA PROTEIN Negative Normal NEGATIVE/ TRACE [facility] Comment on above: Performed By: #### KAROL MERCHANT ####[facility] Jebchpwyzr8[address] [place] [address]Dr. Tadeo Smyth UR MICRO IND INDICATED Normal [facility] Comment on above: Performed By: #### KAROL MERCHANT ####[facility] Frferdgbfe1070[address] [place], [place] [address]Dr. Tadeo Smyth Urobilinogen Qn (U) 0.2 {Benito'U}/dL Normal 0.2 - 1. 0 [facility] Comment on above: Performed By: #### KAROL MERCHANT ####[facility] Hrkkwlbask[address] [place], [place] [address]Dr. Tadeo Smyth LIPASEon 06-06-2022 Lipase [Catalytic activity/Vol] 100.0 U/L Normal 73.0-393.0 [facility] Comment on above: Performed By: #### A MY, LIPA ####[facility] Lxeoljbsus8[address] [place], [place] [address]DrNeo Smyth PROF 14(COMP METB)on 022 Albumin [Mass/Vol] 3.3 g/dL Critically low 3.4-5.0 [facility] Comment on above: Performed By: #### C MP ####[facility] Knwyrvmmqb4634[address] [place], [place] [address]DrNeo Smyth Albumin/Globulin [Mass ratio] 0.9 {ratio} Normal [facility] Comment on above: Performed By: #### C MP ####[facility] Mwxkyelixx[address] [place], [place] [address]Dr. Tadeo Smyth ALP [Catalytic activity/Vol] 140 U/L Critically high 46-116 [facility] Comment on above: Performed By: #### C MP ####[facility] Hyaivwuodp7163 [place] [id number]. Tadeo Smyth ALT [Catalytic activity/Vol] 23 U/L Normal 14-59 [facility] Comment on above: Performed By: #### C MP ####[facility] Aoljqtwhjc6746 [place] [id number]. Tadeo Smyth Anion gap [Moles/Vol] 11.6 mmol/L Normal Th [facility] Comment on above: Performed By: #### C MP ####[facility] Xkhkbksixz5610 [place] [id number]. Tadeo Smyth AST [Catalytic activity/Vol] 18 U/L Normal 15-37 [facility] Comment on above: Performed By: #### C MP ####[facility] Lrxmptpmbu6605[address] [place], [place] [address]Dr. Tadeo Smyth Bilirubin [Mass/Vol] 0.2 mg/dL Normal 0.2-1.0 [facility] Comment on above: Performed By: #### C MP ####[facility] Eretrddlyk8[address] [place], [place] [address]Dr. Tadeo Smyth Calcium [Mass/Vol] 8.8 mg/dL Normal 8.5-10.1 [facility] Comment on above: Performed By: #### C MP ####[facility] Dbmbfxdxux2974[address] [place], [place] [address]Dr. Tadeo Smyth Chloride [Moles/Vol] 109 mmol/L Critically high 98-107 [facility] Comment on above: Performed By: #### C MP ####[facility] Juruhmldfp[address] [place], [place] [address]Dr. Tadeo Smyth CO2 [Moles/Vol] 26.3 mmol/L Normal 21.0-32.0 [facility] Comment on above: Performed By: #### C MP ####[facility] Nsvenbqatl[address] [place], [place] [address]Dr. Tadeo Smyth Creatinine [Mass/Vol] 0.81 mg/dL Normal 0.55-1.02 [facility] Comment on above: Performed By: #### C MP ####[facility] Pzxywhwpqc6656 [place] [phone]. Tadeo Smyth EGFR-AF EGYPTIAN >60 Normal >=60 [facility] Comment on above: Performed By: #### C MP ####[facility] Raisvdtado1132 [place] [address]Dr. Tadeo Smyth EGFR-NON AF EGYPTIAN >60 Normal >=60 [facility] Comment on above: Performed By: #### C MP ####[facility] Kaxgfnxazg1397 [place] [address]Dr. Tadeo Smyth Globulin (S) [Mass/Vol] 3.7 g/dL Normal [facility] Comment on above: Performed By: #### C MP ####[facility] Svuuzquads2289[address] [place], [place] [address]Dr. Tadeo Smyth Glucose [Mass/Vol] 90 mg/dL Normal 74-106 [facility] Comment on above: Performed By: #### C MP ####[facility] Nirbsgiifl5211[address] [place], [place] [address]Dr. Tadeo Smyth Potassium [Moles/Vol] 3.9 mmol/L Normal 3.5-5.1 [facility] Comment on above: Performed By: #### C MP ####[facility] Wcntzgfaek8711[address] [place], [place] [address]Dr. Tadeo Smyth Protein [Mass/Vol] 7.0 g/dL Normal 6.4-8.2 [facility] Comment on above: Performed By: #### C MP ####[facility] Lexbncqvkg8644 [place] [address]Dr. Tadeo Smyth Sodium [Moles/Vol] 143 mmol/L Normal 136-145 [facility] Comment on above: Performed By: #### C MP ####[facility] Dxafxhksay1830[address] [place], [place] [address]Dr. Tadeo Smyth Urea nitrogen [Mass/Vol] 12.0 mg/dL Normal 7.0-18.0 [facility] Comment on above: Performed By: #### C MP ####[facility] Rjsczobpyg[address] [place], [place] [address]Dr. Tadeo Smyth Urea nitrogen/Creatinine [Mass ratio] 14.8 mg/mg Normal [facility] Comment on above: Performed By: #### C MP ####[facility] Lnotnymrai3140[address] [place], [place] [address]Dr. Tadeo Smyth URINE MICROSCOPIC ONLYon BACTERIA LARGE Abnormal NONE SEEN [facility] Comment on above: Performed By: #### RANDI MERCHANTICRO ####[facility] Yjatwpdcyd904[address] [place], [place] [address]Dr. Tadeo Smyth Bacteria identified Cx Nom (U) INDICATED Normal [facility] Comment on above: Performed By: #### SANDRO MERCHANTRO ####[facility] Hlbzqnxnda7622[address] [place], [place] [address]Dr. Tadeo Smyth CAST NONE SEEN Normal NONE SEEN [facility] Comment on above: Performed By: #### SANDRO MERCHANTRO ####[facility] Ubzsdjkinb6880[address] [place], [place] [address]Dr. Tadeo Smyth Crystals LM Nom (Urine sed) NONE SEEN Normal NONE SEEN [facility] Comment on above: Performed By: #### SANDRO MERCHANTRO ####[facility] Sbnytmsbha6536[address] [place], [place] [address]Dr. Tadeo Smyth Epithelial cells LM Ql (Urine sed) RARE Normal NONE SEEN /RARE [facility] Comment on above: Performed By: #### RANDI MERCHANTICRO ####[facility] Ymiebpqxxe406[address] [place], [place] [address]Dr. Tadeo Smyth MUCOUS TRACE Abnormal NONE SEEN [facility] Comment on above: Performed By: #### Matthew FRANCISCO UMICRO ####[facility] Buucwbmhyv[address] [place], [place] [address]Dr. Tadeo Smyth RBC 0-2 Normal 0-2 [facility] Comment on above: Performed By: #### Matthew FRANCISCO UMICRO ####[facility] Sxrhlaocen[address] [place], [place] [address]Dr. Tadeo Smyth WBC 2-5 Abnormal NONE SEEN [facility] Comment on above: Performed By: #### E RUR, UMICRO ####[facility] Dvitimpony0527 [place] [id number]. Tadeo Haja AMYLASEon 06-04-2022 Amylase [Catalytic activity/Vol] 61 U/L Normal 25-115 [facility] Comment on above: Performed By: #### A MY, CMP, LIPA ####[facility] Yjbrwkptzg1820 [place] [address]Dr. Tadeo Haja CBC AUTO DIFFon 06-04-2022 BASO # 0.0 103/ul Normal 0.0-0.1 [facility] Comment on above: Performed By: #### C BC ####[facility] Ihrmiluedi8413[address] [place], [place] [address]Dr. Tadeo Smyth Basophils/100 WBC (Bld) 0.5 % Normal 0.2-2.0 [facility] Comment on above: Performed By: #### C BC ####[facility] Sqgsqqcrwt0614[address] [place], [place] [address]Dr. Tadeo Smyth EO # 0.3 103/ul Normal 0.0-0.7 [facility] Comment on above: Performed By: #### C BC ####[facility] Rkyosisljn1679[address] [place], [place] [address]Dr. Tadeo Smyth Eosinophils/100 WBC (Bld) 4.7 % Normal 0.9-7.0 [facility] Comment on above: Performed By: #### C BC ####[facility] Enimpfotjn9759[address] [place], [place] [address]Dr. Tadeo Smyth Erythrocyte distribution width (RBC) [Ratio] 13.2 % Normal 11.0-15.0 [facility] Comment on above: Performed By: #### C BC ####[facility] Gfletntuyv5485[address] [place], [place] [address]Dr. Tadeo Smyth Hematocrit (Bld) [Volume fraction] 36.9 % Normal 36.0-48.0 [facility] Comment on above: Performed By: #### C BC ####[facility] Sihhhxkysj8425[address] [place], [place] [address]Dr. Tadeo Smyth Hemoglobin (Bld) [Mass/Vol] 11.9 g/dL Critically low 12.0-16.0 [facility] Comment on above: Performed By: #### C BC ####[facility] Qpghypwmys7491 [place] [address]DrNeo Tadeo Smyth IG # 0.01 10e3/ul Normal 0.00-0.03 [facility] Comment on above: Performed By: #### C BC ####[facility] Ibgwnimure0615 [place] [address]DrNeo Tadeo Haja IG % 0.2 % Normal 0.0-0.5 [facility] Comment on above: Performed By: #### C BC ####[facility] Fqjtyylfrz[address] [place], [place] [address]DrNeo Tadeo Haja LYMPH # 2.3 103/ul Normal 1.2-3.8 [facility] Comment on above: Performed By: #### C BC ####[facility] Qfnpgcoldo5740[address] [place], [place] [address]DrNeo Margotnicole Smyth Lymphocytes/100 WBC (Bld) 37.3 % Normal 20.5-60.0 [facility] Comment on above: Performed By: #### C BC ####[facility] Dphfseldgk9[address] [place], [place] [address]DrNeo Tadeo Haja MANUAL DIFF REQ NO Normal [facility] Comment on above: Performed By: #### C BC ####[facility] Nufgphnlma0[address] [place], [place] [address]DrNeo Tadeo Smyth MCH (RBC) [Entitic mass] 29.0 pg Normal 26.7-34.0 [facility] Comment on above: Performed By: #### C BC ####[facility] Plxqyhywkf9974[address] [place], [place] [address]DrNeo Tadeo Haja MCHC (RBC) [Mass/Vol] 32.2 g/dL Normal 29.9-35.2 [facility] Comment on above: Performed By: #### C BC ####[facility] Hwhxzpqzjx4004[address] [place], [place] [address]DrNeo Margotnicole Smyth MCV (RBC) [Entitic vol] 90.0 fL Normal 81.0-99.0 [facility] Comment on above: Performed By: #### C BC ####[facility] Twwgwtjhdm4[address] [place] [address]DrNeo Frostnicole Haja MONO # 0.4 103/ul Normal 0.3-0.8 [facility] Comment on above: Performed By: #### C BC ####[facility] Qddeocqumf6652 [place] [address]DrNeo Smyth Monocytes/100 WBC (Bld) 6.8 % Normal 1.7-12.0 [facility] Comment on above: Performed By: #### C BC ####[facility] Iklaldxcid044[address] [place], [place] [address]DrNeo Smyth NEUT # 3.2 103/ul Normal 1.4-6.5 [facility] Comment on above: Performed By: #### C BC ####[facility] Fnfzopakzl159[address] [place], [place] [address]DrNeo Smyth Neutrophils/100 WBC (Bld) 50.5 % Normal 43.0-75.0 [facility] Comment on above: Performed By: #### C BC ####[facility] Vqjrwqtxnl4978[address] [place], [place] [address]DrNeo Smyth Platelet mean volume (Bld) [Entitic vol] 8.9 fL Critically low 9.5-13.5 [facility] Comment on above: Performed By: #### C BC ####[facility] Nmdjagxmtq026[address] [place], [place] [address]Dr. Tadeo Smyth PLT 387 103/ul Normal 150-450 [facility] Comment on above: Performed By: #### C BC ####[facility] Xgxbrqfxry[address] [place], [place] [address]DrNeo Smyth RBC 4.10 106/ul Critically low 4.20-5.40 [facility] Comment on above: Performed By: #### C BC ####[facility] Czgxssvfxd54[address] [place], [place] [address]DrNeo Smyth WBC 6.2 103/ul Normal 4.0-11.0 [facility] Comment on above: Performed By: #### C BC ####[facility] Cicitfxcaf178[address] [place], [place] [address]Dr. Tadeo S[address] CT ABD/PELV W CONon 06-04-[address] ABD/PELV W CON Normal [facility] ER URINE PROFILEon 2 Bilirubin Ql (U) Negative Normal NEGATIVE [facility] Comment on above: Performed By: #### KAROL MERCHANT ####[facility] Iohamnyzwn16[address] [place], [place] [address]Dr. Tadeo Smyth Clarity (U) CLEAR Normal CLEAR [facility] Comment on above: Performed By: #### KAROL MERCHANT ####[facility] Ziqxmnuotu29[address] [place], [place] [address]Dr. Tadeo Smyth Color (U) LT. YELLOW Normal YELLOW [facility] Comment on above: Performed By: #### KAROL MERCHANT ####[facility] Kzotzprswp9986[address] [place], [place] [address]Dr. Tadeo Smyth ERUAHD A micrscopic examina tion will be performed if indicated. Normal [facility] Comment on above: Performed By: #### KAROL MERCHANT ####[facility] Pgmnzvrewz4[address] [place], [place] [address]Dr. Tadeo Smyth Glucose Ql (U) Negative Normal NEGATIVE [facility] Comment on above: Performed By: #### KAROL MERCHANT ####[facility] Cusvoxfyps[address] [place], [place] [address]Dr. Tadeo Smyth Hemoglobin Ql (U) TRACE-INTACT Abnormal NEGATIVE [facility] Comment on above: Performed By: #### KAROL MERCHANT ####[facility] Eqrgwbryzm8940[address] [place], [place] [address]Dr. Tadeo Smyth Ketones Ql (U) Negative Normal NEGATIVE [facility] Comment on above: Performed By: #### KAROL MERCHANT ####[facility] Mugixxyaze[address] [place], [place] [address]Dr. Tadeo Smyth LEUKOCYTES Negative Normal NEGATIVE [facility] Comment on above: Performed By: #### Matthew FRANCISCO UMICRO ####[facility] Exidnkgojn3592 [place] [address]Dr. Tadeo Smyth Nitrite Ql (U) Negative Normal NEGATIVE [facility] Comment on above: Performed By: #### Matthew FRANCISCO UMICRO ####[facility] Kvlhghmgvo0730 [place] [address]Dr. Tadeo Smyth pH (U) 6.5 [pH] Normal 5-9 [facility] Comment on above: Performed By: #### RANDI MERCHANTICRO ####[facility] Eejikixtcz6136 [place] [address]Dr. Tadeo Smyth SPEC GRAVITY 1.015 Normal 1.005-<=1.0 25 [facility] Comment on above: Performed By: #### Matthew FRANCISCO UMICRO ####[facility] Tvucsykhnv[address] [place], [place] [address]Dr. Tadeo Smyth UA PROTEIN Negative Normal NEGATIVE/ TRACE [facility] Comment on above: Performed By: #### RANDI MERCHANTICRO ####[facility] Ylyrbkycei4[address] [place], [place] [address]Dr. Tadeo Smyth UR MICRO IND INDICATED Normal [facility] Comment on above: Performed By: #### RANDI MERCHANTICRO ####[facility] Kpyuhdjcks1769 [place] [address]Dr. Tadeo Smyth Urobilinogen Qn (U) 0.2 {Benito'U}/dL Normal 0.2 - 1. 0 [facility] Comment on above: Performed By: #### Matthew FRANCISCO UMICRO ####[facility] Nzxyimvdxb[address] [place], [place] [address]Dr. Tadeo Smyth LIPASEon 06-04-2022 Lipase [Catalytic activity/Vol] 81.0 U/L Normal 73.0-393.0 [facility] Comment on above: Performed By: #### A MY, CMP, LIPA ####[facility] Mvamgiqmuz78[address] [place] [address]Dr. Tadeo Smyth PROF 14(COMP METB)on 022 Albumin [Mass/Vol] 3.6 g/dL Normal 3.4-5.0 [facility] Comment on above: Performed By: #### A MY, CMP, LIPA ####[facility] Skuamgkzkp7[address] [place] [address]Dr. Tadeo Smyth Albumin/Globulin [Mass ratio] 1.0 {ratio} Normal [facility] Comment on above: Performed By: #### A MY, CMP, LIPA ####[facility] Wbwjzhfdqr3261 [place] [address]Dr. Tadeo Smyth ALP [Catalytic activity/Vol] 150 U/L Critically high 46-116 [facility] Comment on above: Performed By: #### A MY, CMP, LIPA ####[facility] Btauifnqko0076 [place] [address]Dr. Tadeo Smyth ALT [Catalytic activity/Vol] 23 U/L Normal 14-59 [facility] Comment on above: Performed By: #### A MY, CMP, LIPA ####[facility] Zspzksdqao8845 [place] [address]Dr. Tadeo Smyth Anion gap [Moles/Vol] 13.2 mmol/L Normal [facility] Comment on above: Performed By: #### A MY, CMP, LIPA ####[facility] Elgdqgiiqd6882 [place] [address]Dr. Tadeo Smyth AST [Catalytic activity/Vol] 12 U/L Critically low 15-37 [facility] Comment on above: Performed By: #### A MY, CMP, LIPA ####[facility] Ryvgxxmbqi4975 [place] [address]Dr. Tadeo Smyth Bilirubin [Mass/Vol] 0.1 mg/dL Critically low 0.2-1.0 [facility] Comment on above: Performed By: #### A MY, CMP, LIPA ####[facility] Jmzkxtjknq[address] [place], [place] [address]Dr. Tadeo Smyth Calcium [Mass/Vol] 9.0 mg/dL Normal 8.5-10.1 [facility] Comment on above: Performed By: #### A MY, CMP, LIPA ####[facility] Ujosfkalmr7993 [place] [address]Dr. Tadeo Smyth Chloride [Moles/Vol] 104 mmol/L Normal 98-107 [facility] Comment on above: Performed By: #### A MY, CMP, LIPA ####[facility] Irftbraoep4341 [place] [address]Dr. Tadeo Smyth CO2 [Moles/Vol] 26.6 mmol/L Normal 21.0-32.0 [facility] Comment on above: Performed By: #### A MY, CMP, LIPA ####[facility] Pblxcatawq849[address] [place], [place] [address]Dr. Tadeo Smyth Creatinine [Mass/Vol] 0.97 mg/dL Normal 0.55-1.02 [facility] Comment on above: Performed By: #### A MY, CMP, LIPA ####[facility] Uzbssddfyw13[address] [place], [place] [address]Dr. Tadeo Smyth EGFR-AF EGYPTIAN >60 Normal >=60 [facility] Comment on above: Performed By: #### A MY, CMP, LIPA ####[facility] Ebwnoyxmti14[address] [place], [place] [address]Dr. Tadeo Smyth EGFR-NON AF EGYPTIAN 60 mL/min/1.73m2 Normal >=60 [facility] Comment on above: Performed By: #### A MY, CMP, LIPA ####[facility] Gudtsylsqk8469[address] [place], [place] [address]Dr. Tadeo Smyth Globulin (S) [Mass/Vol] 3.7 g/dL Normal [facility] Comment on above: Performed By: #### A MY, CMP, LIPA ####[facility] Kafoffwxfs[address] [place], [place] [address]Dr. Tadeo Smyht Glucose [Mass/Vol] 109 mg/dL Critically high 74-106 [facility] Comment on above: Performed By: #### A MY, CMP, LIPA ####[facility] Zzlaygzyap9256[address] [place], [place] [address]Dr. Tadeo Smyth Potassium [Moles/Vol] 3.8 mmol/L Normal 3.5-5.1 [facility] Comment on above: Performed By: #### A MY, CMP, LIPA ####[facility] Heyjpcrnst3[address] [place] [address]Dr. Tadeo Smyth Protein [Mass/Vol] 7.3 g/dL Normal 6.4-8.2 [facility] Comment on above: Performed By: #### A MY, CMP, LIPA ####[facility] Gveodqhhda8417 [place] [address]Dr. Tadeo Smyth Sodium [Moles/Vol] 140 mmol/L Normal 136-145 [facility] Comment on above: Performed By: #### A MY, CMP, LIPA ####[facility] Xlbnlsznei[address] [place], [place] [address]Dr. Tadeo Smyth Urea nitrogen [Mass/Vol] 21.0 mg/dL Critically high 7.0-18.0 [facility] Comment on above: Performed By: #### A MY, CMP, LIPA ####[facility] Aqvzcjfahn[address] [place], [place] [address]Dr. Tadeo Smyth Urea nitrogen/Creatinine [Mass ratio] 21.6 mg/mg Normal [facility] Comment on above: Performed By: #### A MY, CMP, LIPA ####[facility] Knaovkhmtr[address] [place] [address]Dr. Tadeo Smyth URINE MICROSCOPIC ONLYon BACTERIA NONE SEEN Normal NONE SEEN [facility] Comment on above: Performed By: #### SANDRO MERCHANTRO ####[facility] Avhtuddbuq6365 [place] [address]Dr. Tadeo Smyth Bacteria identified Cx Nom (U) NOT INDICATED Normal [facility] Comment on above: Performed By: #### SANDRO MERCHANTRO ####[facility] [facility] [address] [place] [address]Dr. Tadeo Smyth CAST NONE SEEN Normal NONE SEEN [facility] Comment on above: Performed By: #### SANDRO MERCHANTRO ####[facility] Gtppkjmxhd8[address] [place] [address]Dr. Tadeo Smyth Crystals LM Nom (Urine sed) NONE SEEN Normal NONE SEEN [facility] Comment on above: Performed By: #### KAROL MERCHANT ####[facility] Fvlfzreyib0104 [place] [address]Dr. Tadeo Smtyh Epithelial cells LM Ql (Urine sed) FEW Abnormal NONE SEEN /RARE [facility] Comment on above: Performed By: #### KAROL MERCHANT ####[facility] Mlcahgaglf[address] [place], [place] [address]Dr. Tadeo Smyth MUCOUS NONE SEEN Normal NONE SEEN [facility] Comment on above: Performed By: #### KAROL MERCHANT ####[facility] Fcruyypwso7987[address] [place], [place] [address]Dr. Tadeo Smyth RBC 0-2 Normal 0-2 [facility] Comment on above: Performed By: #### KAROL MERCHANT ####[facility] Gbwlnskude16[address] [place], [place] [address]Dr. Tadeo Smyth WBC NONE SEEN Normal NONE SEEN [facility] Comment on above: Performed By: #### KAROL MERCHANT ####[facility] Oibqjqmgnk9[address] [place], [place] [address]Dr. Tadeo Smyth MICRO OTHER TESTSOrdered By: Guillermo Rocha on 04-29-2022 Fecal WBC Lactoferrin Negative (04/29/22 8:00 AM) Normal Negative [facility] [place] CULTURE URINEon 03-31-2022 CULTURE URINE Normal [facility] Comment on above: Performed By: #### U RCX ####[facility] Gukaxsisxt40[address] [place], [place] [address]Dr. Tadeo Smyth CBC AUTO DIFFon 03-30-2022 BASO # 0.0 103/ul Normal 0.0-0.1 [facility] Comment on above: Performed By: #### C BC ####[facility] Iwbbfxfmsc9390[address] [place], [place] [address]Dr. Tadeo Smyth Basophils/100 WBC (Bld) 0.4 % Normal 0.2-2.0 [facility] Comment on above: Performed By: #### C BC ####[facility] Zabfkgkohy45[address] [place] [address]Dr. Tadeo Smyth EO # 0.3 103/ul Normal 0.0-0.7 [facility] Comment on above: Performed By: #### C BC ####[facility] Prlrrufwvg373[address] [place], [place] [address]Dr. Tadeo Smyth Eosinophils/100 WBC (Bld) 5.1 % Normal 0.9-7.0 [facility] Comment on above: Performed By: #### C BC ####[facility] Ysgpeoadfd8397[address] [place], [place] [address]Dr. Tadeo Smyth Erythrocyte distribution width (RBC) [Ratio] 12.8 % Normal 11.0-15.0 [facility] Comment on above: Performed By: #### C BC ####[facility] Sgnhxxgzxl224[address] [place], [place] [address]Dr. Margotnicole Smyth Hematocrit (Bld) [Volume fraction] 36.4 % Normal 36.0-48.0 [facility] Comment on above: Performed By: #### C BC ####[facility] Naqzxwroem69[address] [place], [place] [address]Dr. Tadeo Smyth Hemoglobin (Bld) [Mass/Vol] 12.0 g/dL Normal 12.0-16.0 [facility] Comment on above: Performed By: #### C BC ####[facility] Rsvpdqhzge6[address] [place], [place] [address]Dr. Margotnicole Smyth IG # 0.02 10e3/ul Normal 0.00-0.03 [facility] Comment on above: Performed By: #### C BC ####[facility] Ovzeuatodb0527[address] [place], [place] [address]Dr. Margotnicole Smyth IG % 0.4 % Normal 0.0-0.5 [facility] Comment on above: Performed By: #### C BC ####[facility] Zdfkuutknr2937[address] [place], [place] [address]Dr. Tadeo Smyth LYMPH # 1.4 103/ul Normal 1.2-3.8 [facility] Comment on above: Performed By: #### C BC ####[facility] Atzuziuyyw[address] [place] [id number]. Tadeo Smyth Lymphocytes/100 WBC (Bld) 25.5 % Normal 20.5-60.0 [facility] Comment on above: Performed By: #### C BC ####[facility] Kiupjnujkc7124 [place] [phone]. Tadeo Smyth MANUAL DIFF REQ NO Normal [facility] Comment on above: Performed By: #### C BC ####[facility] Mckoswhndz6891 [place] [phone]. Tadeo Smyth MCH (RBC) [Entitic mass] 29.1 pg Normal 26.7-34.0 [facility] Comment on above: Performed By: #### C BC ####[facility] Ksfrdayhdt67[address] [place], [place] [address]Dr. Tadeo Smyth MCHC (RBC) [Mass/Vol] 33.0 g/dL Normal 29.9-35.2 [facility] Comment on above: Performed By: #### C BC ####[facility] Reucfdfpol[address] [place], [place] [address]Dr. Tadeo Smyth MCV (RBC) [Entitic vol] 88.3 fL Normal 81.0-99.0 [facility] Comment on above: Performed By: #### C BC ####[facility] Azjmalnnnq6826[address] [place], [place] [address]Dr. Tadeo Smyth MONO # 0.4 103/ul Normal 0.3-0.8 [facility] Comment on above: Performed By: #### C BC ####[facility] C[address]qtsvrr[address] [place] [phone]. Tadeo Smyth Monocytes/100 WBC (Bld) 7.1 % Normal 1.7-12.0 [facility] Comment on above: Performed By: #### C BC ####[facility] Atsoyiddvm7[address] [place], [place] [address]Dr. Tadeo Smyth NEUT # 3.4 103/ul Normal 1.4-6.5 [facility] Comment on above: Performed By: #### C BC ####[facility] Ugumwjyone[address] [place] [phone]. Margotnicole Haja Neutrophils/100 WBC (Bld) 61.5 % Normal 43.0-75.0 [facility] Comment on above: Performed By: #### C BC ####[facility] Bjtqtwummq7291 [place] [phone]. Tadeo Smyth Platelet mean volume (Bld) [Entitic vol] 8.8 fL Critically low 9.5-13.5 [facility] Comment on above: Performed By: #### C BC ####[facility] Flxnnnjwuo38[address] [place] [address]Dr. Tadeo Smyth PLT 324 103/ul Normal 150-450 [facility] Comment on above: Performed By: #### C BC ####[facility] Zvaggnlqmc8273 [place] [phone]. Tadeo Smyth RBC 4.12 106/ul Critically low 4.20-5.40 [facility] Comment on above: Performed By: #### C BC ####[facility] Dwjcnelgrb0617 [place] [phone]. Tadeo Smyth WBC 5.5 103/ul Normal 4.0-11.0 [facility] Comment on above: Performed By: #### C BC ####[facility] Sefbdvuuqb2778 [place] [phone] Smyth PROF 14(COMP METB)on 022 Albumin [Mass/Vol] 3.1 g/dL Critically low 3.4-5.0 [facility] Comment on above: Performed By: #### C MP ####[facility] Zqieixxcog3114 [place] [phone] Smyth Albumin/Globulin [Mass ratio] 0.9 {ratio} Normal [facility] Comment on above: Performed By: #### C MP ####[facility] Ljpvnkprpa6374 [place] [phone] Smyth ALP [Catalytic activity/Vol] 119 U/L Critically high 46-116 [facility] Comment on above: Performed By: #### C MP ####[facility] Ukhjdraxib8588 [place] [phone]. Tadeo Smyth ALT [Catalytic activity/Vol] 17 U/L Normal 14-59 [facility] Comment on above: Performed By: #### C MP ####[facility] Fccvwhffjq8869 [place] [phone]. Tadeo Haja Anion gap [Moles/Vol] 12.0 mmol/L Normal Th e [facility] Comment on above: Performed By: #### C MP ####[facility] Oveifkqgqs6486 [place] [phone]. Tadeo Haja AST [Catalytic activity/Vol] 16 U/L Normal 15-37 [facility] Comment on above: Performed By: #### C MP ####[facility] Lpjmkortlx[address] [place], [place] [address]Dr. Tadeo Haja Bilirubin [Mass/Vol] 0.4 mg/dL Normal 0.2-1.0 [facility] Comment on above: Performed By: #### C MP ####[facility] Abfvrgqanc11[address] [place], [place] [address]Dr. Tadeo Haja Calcium [Mass/Vol] 8.9 mg/dL Normal 8.5-10.1 [facility] Comment on above: Performed By: #### C MP ####[facility] Ukoslnsyem[address] [place], [place] [address]Dr. Margotnicole Smyth Chloride [Moles/Vol] 107 mmol/L Normal 98-107 [facility] Comment on above: Performed By: #### C MP ####[facility] Iqhftsokdp0155 [place] [phone]. Tadeo Haja CO2 [Moles/Vol] 26.9 mmol/L Normal 21.0-32.0 [facility] Comment on above: Performed By: #### C MP ####[facility] Tptgmzzsfj116[address] [place], [place] [address]Dr. Tadeo Smyth Creatinine [Mass/Vol] 0.82 mg/dL Normal 0.55-1.02 [facility] Comment on above: Performed By: #### C MP ####[facility] Cgjvrbkulp[address] [place] [address]Dr. Tadeo Smyth EGFR-AF EGYPTIAN >60 Normal >=60 [facility] Comment on above: Performed By: #### C MP ####[facility] Cngqkudiuh3861 [place] [phone]. Tadeo Smyth EGFR-NON AF EGYPTIAN >60 Normal >=60 [facility] Comment on above: Performed By: #### C MP ####[facility] Lwxzkkzzqq8833 [place] [address]Dr. Tadeo Smyth Globulin (S) [Mass/Vol] 3.5 g/dL Normal [facility] Comment on above: Performed By: #### C MP ####[facility] Xyzuilyrwm7740[address] [place], [place] [address]Dr. Tadeo Smyth Glucose [Mass/Vol] 104 mg/dL Normal 74-106 [facility] Comment on above: Performed By: #### C MP ####[facility] Tcbksebzbj5367[address] [place], [place] [address]Dr. Tadeo Smyth Potassium [Moles/Vol] 3.9 mmol/L Normal 3.5-5.1 [facility] Comment on above: Performed By: #### C MP ####[facility] Ufxdufjlnx6394[address] [place], [place] [address]Dr. Tadeo Smyth Protein [Mass/Vol] 6.6 g/dL Normal 6.4-8.2 [facility] Comment on above: Performed By: #### C MP ####[facility] Ftdylgpwch1627 [place] [address]Dr. Tadeo Smyth Sodium [Moles/Vol] 142 mmol/L Normal 136-145 [facility] Comment on above: Performed By: #### C MP ####[facility] Gltjkdpqzi050[address] [place], [place] [address]Dr. Tadeo Smyth Urea nitrogen [Mass/Vol] 5.0 mg/dL Critically low 7.0-18.0 [facility] Comment on above: Performed By: #### C MP ####[facility] Vxltugngmc7684 [place] [phone]. Tadeo Smyth Urea nitrogen/Creatinine [Mass ratio] 6.1 mg/mg Normal [facility] Comment on above: Performed By: #### C MP ####[facility] Lzzhgvivvp3962 [place] [address]Dr. Tadeo Smyth CBC AUTO DIFFon 03-29-2022 BASO # 0.0 103/ul Normal 0.0-0.1 [facility] Comment on above: Performed By: #### C BC ####[facility] Wyzkvrqpql[address] [place], [place] [address]Dr. Tadeo Smyth Basophils/100 WBC (Bld) 0.4 % Normal 0.2-2.0 [facility] Comment on above: Performed By: #### C BC ####[facility] Ofqtpopmyj734[address] [place], [place] [address]Dr. Tadeo Smyht EO # 0.2 103/ul Normal 0.0-0.7 [facility] Comment on above: Performed By: #### C BC ####[facility] Snqagjdjek1844[address] [place], [place] [address]Dr. Tadeo Smyth Eosinophils/100 WBC (Bld) 4.3 % Normal 0.9-7.0 [facility] Comment on above: Performed By: #### C BC ####[facility] Lkzvvxybxi[address] [place], [place] [address]Dr. Tadeo Smyth Erythrocyte distribution width (RBC) [Ratio] 12.9 % Normal 11.0-15.0 [facility] Comment on above: Performed By: #### C BC ####[facility] I[address]zpzongm[address] [place], [place] [address]Dr. Tadeo Smyth Hematocrit (Bld) [Volume fraction] 33.8 % Critically low 36.0-48.0 [facility] Comment on above: Performed By: #### C BC ####[facility] Qalvyrbtrp[address] [place], [place] [address]Dr. Tadeo Smyth Hemoglobin (Bld) [Mass/Vol] 11.1 g/dL Critically low 12.0-16.0 [facility] Comment on above: Performed By: #### C BC ####[facility] Oscekbacjg5954 [place] [phone]. Tadeo Smyth IG # 0.01 10e3/ul Normal 0.00-0.03 [facility] Comment on above: Performed By: #### C BC ####[facility] Mavgffqlhi8391 [place] [phone]. Tadeo Smyth IG % 0.2 % Normal 0.0-0.5 [facility] Comment on above: Performed By: #### C BC ####[facility] Ohcxhjnuqo8020 [place] [address]Dr. Tadeo Smyth LYMPH # 1.5 103/ul Normal 1.2-3.8 [facility] Comment on above: Performed By: #### C BC ####[facility] Jrorgqcfmh4508 [place] [address]Dr. Tadeo Smyth Lymphocytes/100 WBC (Bld) 29.9 % Normal 20.5-60.0 [facility] Comment on above: Performed By: #### C BC ####[facility] Pduntysyhl7797 [place] [address]Dr. Tadeo Smyth MANUAL DIFF REQ NO Normal [facility] Comment on above: Performed By: #### C BC ####[facility] Qmwdfmzqdt3125[address] [place], [place] [address]Dr. Tadeo Smyth MCH (RBC) [Entitic mass] 29.3 pg Normal 26.7-34.0 [facility] Comment on above: Performed By: #### C BC ####[facility] Unbcxytljw9328[address] [place], [place] [address]Dr. Tadeo Smyth MCHC (RBC) [Mass/Vol] 32.8 g/dL Normal 29.9-35.2 [facility] Comment on above: Performed By: #### C BC ####[facility] Nppbflcrts3[address] [place], [place] [address]Dr. Tadeo Smyth MCV (RBC) [Entitic vol] 89.2 fL Normal 81.0-99.0 [facility] Comment on above: Performed By: #### C BC ####[facility] Ykaqybfqpq2833 [place] [phone]. Tadeo Smyth MONO # 0.4 103/ul Normal 0.3-0.8 [facility] Comment on above: Performed By: #### C BC ####[facility] Fsytpmbxyf5918 [place] [phone]. Tadeo Smyth Monocytes/100 WBC (Bld) 7.8 % Normal 1.7-12.0 [facility] Comment on above: Performed By: #### C BC ####[facility] Sshhwcrlln7026 [place] [phone]. Tadeo Smyth NEUT # 2.8 103/ul Normal 1.4-6.5 [facility] Comment on above: Performed By: #### C BC ####[facility] Furrsvvsxk6595[address] [place], [place] [address]Dr. Tadeo Smyth Neutrophils/100 WBC (Bld) 57.4 % Normal 43.0-75.0 [facility] Comment on above: Performed By: #### C BC ####[facility] Vwgceiljzk6618 [place] [address]Dr. Tadeo Smyth Platelet mean volume (Bld) [Entitic vol] 8.9 fL Critically low 9.5-13.5 [facility] Comment on above: Performed By: #### C BC ####[facility] Bshcvcsezt0386 [place] [phone]. Tadeo Smyth PLT 314 103/ul Normal 150-450 [facility] Comment on above: Performed By: #### C BC ####[facility] Iwqepjzpuk[address] [place], [place] [address]Dr. Tadeo Smyth RBC 3.79 106/ul Critically low 4.20-5.40 [facility] Comment on above: Performed By: #### C BC ####[facility] Mxpijvodfy[address] [place], [place] [address]Dr. Tadeo Smyth WBC 4.9 103/ul Normal 4.0-11.0 [facility] Comment on above: Performed By: #### C BC ####[facility] Weeejdzpwq1750 [place] [address]Dr. Tadeo Smyth PROF 14(COMP METB)on 022 Albumin [Mass/Vol] 2.8 g/dL Critically low 3.4-5.0 Th e [facility] Comment on above: Performed By: #### C MP ####[facility] Ykijgaufwh9340 [place] [address]Dr. Tadeo Smyth Albumin/Globulin [Mass ratio] 0.8 {ratio} Normal [facility] Comment on above: Performed By: #### C MP ####[facility] Udvqmosmoh5970 [place] [address]Dr. Tadeo Smyth ALP [Catalytic activity/Vol] 117 U/L Critically high 46-116 [facility] Comment on above: Performed By: #### C MP ####[facility] Slnniginpl95[address] [place], [place] [address]Dr. Tadeo mSyth ALT [Catalytic activity/Vol] 13 U/L Critically low 14-59 [facility] Comment on above: Performed By: #### C MP ####[facility] Ltgyflkukl643[address] [place], [place] [address]Dr. Tadeo Smyth Anion gap [Moles/Vol] 8.7 mmol/L Normal [facility] Comment on above: Performed By: #### C MP ####[facility] Gpbgpkywew86[address] [place], [place] [address]Dr. Tadeo Smyth AST [Catalytic activity/Vol] 12 U/L Critically low 15-37 [facility] Comment on above: Performed By: #### C MP ####[facility] Qghtqiyldv4116[address] [place], [place] [address]Dr. Tadeo Smyth Bilirubin [Mass/Vol] 0.4 mg/dL Normal 0.2-1.0 [facility] Comment on above: Performed By: #### C MP ####[facility] Ncghhrzdkv53[address] [place], [place] [address]Dr. Tadeo Smyth Calcium [Mass/Vol] 8.5 mg/dL Normal 8.5-10.1 [facility] Comment on above: Performed By: #### C MP ####[facility] Upfafazblg4968 [place] [phone]. Tadeo Haja Chloride [Moles/Vol] 108 mmol/L Critically high 98-107 [facility] Comment on above: Performed By: #### C MP ####[facility] Yryjidwoda2754 [place] [address]Dr. Tadeo Smyth CO2 [Moles/Vol] 28.0 mmol/L Normal 21.0-32.0 [facility] Comment on above: Performed By: #### C MP ####[facility] Tdowsjwadq8155 [place] [address]Dr. Tadeo Smyth Creatinine [Mass/Vol] 0.74 mg/dL Normal 0.55-1.02 [facility] Comment on above: Performed By: #### C MP ####[facility] Lgpvwxzcit1498 [place] [address]Dr. Tadeo Smyth EGFR-AF EGYPTIAN >60 Normal >=60 [facility] Comment on above: Performed By: #### C MP ####[facility] Hakjulabwl5090 [place] [address]Dr. Tadeo Smyth EGFR-NON AF EGYPTIAN >60 Normal >=60 [facility] Comment on above: Performed By: #### C MP ####[facility] Sunwsgmkew7362 [place] [address]Dr. Tadeo Smyth Globulin (S) [Mass/Vol] 3.4 g/dL Normal [facility] Comment on above: Performed By: #### C MP ####[facility] Tzrjtblnhz8218 [place] [address]Dr. Tadeo Smyth Glucose [Mass/Vol] 107 mg/dL Critically high 74-106 [facility] Comment on above: Performed By: #### C MP ####[facility] Hcwkqwruph5[address] [place], [place] [address]Dr. Tadeo Smyth Potassium [Moles/Vol] 3.7 mmol/L Normal 3.5-5.1 [facility] Comment on above: Performed By: #### C MP ####[facility] Hwgkbqcpry2129[address] [place], [place] [address]Dr. Tadeo Smyth Protein [Mass/Vol] 6.2 g/dL Critically low 6.4-8.2 Th e [facility] Comment on above: Performed By: #### C MP ####[facility] Trfkizrrjd9971 [place] [address]Dr. Tadeo Smyth Sodium [Moles/Vol] 141 mmol/L Normal 136-145 [facility] Comment on above: Performed By: #### C MP ####[facility] Prdusccnvy4167[address] [place], [place] [address]Dr. Tadeo Smyth Urea nitrogen [Mass/Vol] 7.0 mg/dL Normal 7.0-18.0 [facility] Comment on above: Performed By: #### C MP ####[facility] Nqjggxoxzt254[address] [place], [place] [address]Dr. Tadeo Smyth Urea nitrogen/Creatinine [Mass ratio] 9.5 mg/mg Normal [facility] Comment on above: Performed By: #### C MP ####[facility] Exvdfadbnf7074[address] [place], [place] [address]Dr. Tadeo Smyth XR KUB 1 VIEWon 03-29-2022 XR KUB 1 VIEW Normal [facility] CBC AUTO DIFFon 03-28-2022 BASO # 0.0 103/ul Normal 0.0-0.1 [facility] Comment on above: Performed By: #### C BC ####[facility] Uwqwsvqfji56[address] [place], [place] [address]Dr. Tadeo Haja Basophils/100 WBC (Bld) 0.7 % Normal 0.2-2.0 [facility] Comment on above: Performed By: #### C BC ####[facility] Otukckrzpg9[address] [place], [place] [address]Dr. Tadeo Smyth EO # 0.2 103/ul Normal 0.0-0.7 [facility] Comment on above: Performed By: #### C BC ####[facility] Hodhajuzna[address] [place], [place] [address]Dr. Tadeo Haja Eosinophils/100 WBC (Bld) 3.3 % Normal 0.9-7.0 [facility] Comment on above: Performed By: #### C BC ####[facility] Uidlruxozc6637 [place] [address]Dr. Tadeo Smyth Erythrocyte distribution width (RBC) [Ratio] 13.2 % Normal 11.0-15.0 [facility] [facility] Comment on above: Performed By: #### C BC ####[facility] Ueyqijxrgn[address] [place], [place] [address]Dr. Tadeo Smyth Hematocrit (Bld) [Volume fraction] 34.2 % Critically low 36.0-48.0 [facility] Comment on above: Performed By: #### C BC ####[facility] Rpsbykjnfe107[address] [place], [place] [address]Dr. Tadeo Smyth Hemoglobin (Bld) [Mass/Vol] 10.8 g/dL Critically low 12.0-16.0 [facility] Comment on above: Performed By: #### C BC ####[facility] Aijnrzzufw56[address] [place], [place] [address]Dr. Tadeo Smyth IG # 0.01 10e3/ul Normal 0.00-0.03 [facility] Comment on above: Performed By: #### C BC ####[facility] Olnlcwsfqi879[address] [place], [place] [address]Dr. Tadeo Smyth IG % 0.2 % Normal 0.0-0.5 [facility] Comment on above: Performed By: #### C BC ####[facility] Fkmsgkisdd26[address] [place], [place] [address]Dr. Tadeo Smyth LYMPH # 1.3 103/ul Normal 1.2-3.8 [facility] Comment on above: Performed By: #### C BC ####[facility] Fwbefdgfkx4[address] [place], [place] [address]Dr. Tadeo Smyth Lymphocytes/100 WBC (Bld) 28.4 % Normal 20.5-60.0 [facility] Comment on above: Performed By: #### C BC ####[facility] Jgylpvgqyy0567[address] [place], [place] [address]Dr. Tadeo Smyth MANUAL DIFF REQ NO Normal [facility] Comment on above: Performed By: #### C BC ####[facility] Fvuxqaylxx1132 [place] [id number]. Tadeo Smyth MCH (RBC) [Entitic mass] 28.3 pg Normal 26.7-34.0 [facility] Comment on above: Performed By: #### C BC ####[facility] Blzyhagtla8461 [place] [phone]. Tadeo Smyth MCHC (RBC) [Mass/Vol] 31.6 g/dL Normal 29.9-35.2 [facility] Comment on above: Performed By: #### C BC ####[facility] Eygtbhhrld5178 [place] [address]Dr. Margotnicole Smyth MCV (RBC) [Entitic vol] 89.5 fL Normal 81.0-99.0 [facility] Comment on above: Performed By: #### C BC ####[facility] Aduawuchkj314[address] [place], [place] [address]Dr. Tadeo Smyth MONO # 0.3 103/ul Normal 0.3-0.8 [facility] Comment on above: Performed By: #### C BC ####[facility] Plapjdrork8377[address] [place], [place] [address]Dr. Tadeo Smyth Monocytes/100 WBC (Bld) 5.5 % Normal 1.7-12.0 [facility] Comment on above: Performed By: #### C BC ####[facility] Uxnbuljzmm863[address] [place], [place] [address]Dr. Tadeo Smyth NEUT # 2.8 103/ul Normal 1.4-6.5 [facility] Comment on above: Performed By: #### C BC ####[facility] Olalvhkxdi8629[address] [place], [place] [address]Dr. Tadeo Smyth Neutrophils/100 WBC (Bld) 61.9 % Normal 43.0-75.0 [facility] Comment on above: Performed By: #### C BC ####[facility] Tgtlupvfdp3428 [place] [phone]. Tadeo Smyth Platelet mean volume (Bld) [Entitic vol] 9.1 fL Critically low 9.5-13.5 [facility] Comment on above: Performed By: #### C BC ####[facility] Csimxxbwjp5707 [place] [phone]. Tadeo Smyth PLT 327 103/ul Normal 150-450 [facility] Comment on above: Performed By: #### C BC ####[facility] Pnqgrwjnvo7873 [place] [phone]. Tadeo Smyth RBC 3.82 106/ul Critically low 4.20-5.40 [facility] Comment on above: Performed By: #### C BC ####[facility] Ajqgnfmjhh5528 [place] [phone]. Tadeo Smyth WBC 4.5 103/ul Normal 4.0-11.0 [facility] Comment on above: Performed By: #### C BC ####[facility] Onrizimevl6115 [place] [phone]. Tadeo Smyth POINT OF CARE GLUCOSEon 03-06 Glucose [Mass/Vol] 84 mg/dL Normal 74-106 [facility] Comment on above: Performed By: #### P OCGLUC ####[facility] Yvwcnuulkt9142 [place] [phone]. Tadeo Smyth PROF 14(COMP METB)on 022 Albumin [Mass/Vol] 2.9 g/dL Critically low 3.4-5.0 [facility] Comment on above: Performed By: #### C MP ####[facility] Gqwxuiavnf2395 [place] [phone]. Tadeo Smyth Albumin/Globulin [Mass ratio] 0.9 {ratio} Normal [facility] Comment on above: Performed By: #### C MP ####[facility] Tsxgdwzbhm1490 [place] [phone]. Tadeo Smyth ALP [Catalytic activity/Vol] 119 U/L Critically high 46-116 [facility] Comment on above: Performed By: #### C MP ####[facility] Vffyeedoyw3749 [place] [phone]. Tadeo Smyth ALT [Catalytic activity/Vol] 15 U/L Normal 14-59 [facility] Comment on above: Performed By: #### C MP ####[facility] Cmgdjksexk5694 [place] [phone]. Tadeo Smyth Anion gap [Moles/Vol] 7.9 mmol/L Normal [facility] Comment on above: Performed By: #### C MP ####[facility] Uocibskhsg4693 [place] [phone]. Tadeo Smyth AST [Catalytic activity/Vol] 11 U/L Critically low 15-37 [facility] Comment on above: Performed By: #### C MP ####[facility] Tneeydefpv3435 [place] [address]Dr. Tadeo Haja Bilirubin [Mass/Vol] 0.4 mg/dL Normal 0.2-1.0 [facility] Comment on above: Performed By: #### C MP ####[facility] Zngkuvpwle[address] [place], [place] [address]Dr. Tadeo Haja Calcium [Mass/Vol] 8.7 mg/dL Normal 8.5-10.1 [facility] Comment on above: Performed By: #### C MP ####[facility] Zemgwuernv39[address] [place], [place] [address]Dr. Tadeo Haja Chloride [Moles/Vol] 109 mmol/L Critically high 98-107 [facility] Comment on above: Performed By: #### C MP ####[facility] Bdbkgdruyg9607 [place] [address]Dr. Tadeo Haja CO2 [Moles/Vol] 27.9 mmol/L Normal 21.0-32.0 [facility] Comment on above: Performed By: #### C MP ####[facility] Qmiggycgiq8702 [place] [phone]. Tadeo Smyth Creatinine [Mass/Vol] 0.75 mg/dL Normal 0.55-1.02 [facility] Comment on above: Performed By: #### C MP ####[facility] Jspzqruinx3045 [place] [phone]. Tadeo Haja EGFR-AF EGYPTIAN >60 Normal >=60 [facility] Comment on above: Performed By: #### C MP ####[facility] Fwizryykxd2284 [place] [phone]. Tadeo Smyth EGFR-NON AF EGYPTIAN >60 Normal >=60 [facility] Comment on above: Performed By: #### C MP ####[facility] Mybjpwxyeb7238 [place], [place] [address]Pa. Tadeo Smyth Globulin (S) [Mass/Vol] 3.3 g/dL Normal [facility] Comment on above: Performed By: #### C MP ####[facility] Raqzamrhte6517 [place] [phone]. Tadeo Smyth Glucose [Mass/Vol] 95 mg/dL Normal 74-106 [facility] Comment on above: Performed By: #### C MP ####[facility] Vspipnnido5837 [place] [phone]. Tadeo Smyth Potassium [Moles/Vol] 3.8 mmol/L Normal 3.5-5.1 [facility] Comment on above: Performed By: #### C MP ####[facility] Rfrrrodhxq8533 [place] [phone]. Tadeo Smyth Protein [Mass/Vol] 6.2 g/dL Critically low 6.4-8.2 [facility] Comment on above: Performed By: #### C MP ####[facility] Kyptbtvksf0194 [place] [phone]. Tadeo Smyth Sodium [Moles/Vol] 141 mmol/L Normal 136-145 [facility] Comment on above: Performed By: #### C MP ####[facility] Pwsqbtxquh2623 [place] [phone]. Tadeo Smyth Urea nitrogen [Mass/Vol] 8.0 mg/dL Normal 7.0-18.0 [facility] Comment on above: Performed By: #### C MP ####[facility] Qegltivwpr0666 [place] [phone]. Tadeo Smyth Urea nitrogen/Creatinine [Mass ratio] 10.7 mg/mg Normal [facility] Comment on above: Performed By: #### C MP ####[facility] Gbjjhcszdc[address] [place], [place] [address]Dr. Tadeo Smyth UA (CLEAN/CATCH) EXHAUST TENDER/MICRO I F IND.on 03-28-2022 Bilirubin Ql (U) Negative Normal NEGATIVE The [facility] Comment on above: Performed By: #### U ACSBLANE, ICRO ####[facility] Aqetrupppj8306 [place] [address]Dr. Tadeo Smyth Clarity (U) SL CLOUDY Abnormal CLEAR [facility] Comment on above: Performed By: #### U ACSBLANE, ICRO ####[facility] Xcgrfhegrc[address] [place], [place] [address]Dr. Tadeo Smyth Color (U) LT. YELLOW Normal YELLOW [facility] Comment on above: Performed By: #### U ACSBLANE, ICRO ####[facility] Ldxlqjbxxw0[address] [place], [place] [address]Dr. Tadeo Smyth Glucose Ql (U) Negative Normal NEGATIVE The [facility] Comment on above: Performed By: #### U ACSBLANE, ICRO ####[facility] Ulivtosgmu4679[address] [place], [place] [address]Dr. Tadeo Smyth Hemoglobin Ql (U) TRACE-INTACT Abnormal NEGATIVE The [facility] Comment on above: Performed By: #### U ACSBLANE, ICRO ####[facility] Uhaiiimnkz6722[address] [place], [place] [address]Dr. Tadeo Smyth Ketones Ql (U) TRACE Abnormal NEGATIVE The [facility] Comment on above: Performed By: #### U ACSBLANE ICRO ####[facility] Roetardekg719[address] [place], [place] [address]Dr. Tadeo Smyth LEUKOCYTES Negative Normal NEGATIVE The [facility] Comment on above: Performed By: #### U ACSBLANE ICRO ####[facility] Cvcjcyfgew[address] [place], [place] [address]Dr. Tadeo Smyth Nitrite Ql (U) Negative Normal NEGATIVE The [facility] Comment on above: Performed By: #### U ACSBLANE, ICRO ####[facility] Egeoxfyqqd6607[address] [place], [place] [address]Dr. Tadeo Smyth pH (U) 6.5 [pH] Normal 5-9 [facility] Comment on above: Performed By: #### U MARE UMICRO ####[facility] Sfpgyunuls0089 [place] [address]Dr. Tadeo Smyth SPEC GRAVITY 1.015 Normal 1.005-<=1.0 25 [facility] Comment on above: Performed By: #### U MARE UMICRO ####[facility] Jfwbtwraly6859 [place] [address]Dr. Tadeo Smyth UA PROTEIN Negative Normal NEGATIVE/ TRACE [facility] Comment on above: Performed By: #### U MARE UMICRO ####[facility] Xncedfytru4[address] [place], [place] [address]Dr. Tadeo Smyth UR MICRO IND INDICATED Normal [facility] Comment on above: Performed By: #### U MARE ICRO ####[facility] Btikyzahbu064[address] [place], [place] [address]Dr. Tadeo Smyth Urobilinogen Qn (U) 0.2 {Benito'U}/dL Normal 0.2 - 1. 0 [facility] Comment on above: Performed By: #### U MARE UMICRO ####[facility] Clivxkdsyj15[address] [place], [place] [address]Dr. Tadeo Smyth URINE MICROSCOPIC ONLYon BACTERIA MODERATE Abnormal NONE SEEN The [facility] Comment on above: Performed By: #### U MARE UMICRO ####[facility] Bwsratyrhq4[address] [place], [place] [address]Dr. Tadeo Smyth Bacteria identified Cx Nom (U) INDICATED Normal [facility] Comment on above: Performed By: #### U MARE UMICRO ####[facility] Ilalsfwpgp6[address] [place], [place] [address]Dr. Tadeo Smyth CAST NONE SEEN Normal NONE SEEN The [facility] Comment on above: Performed By: #### U ACSBLANE UMICRO ####[facility] Nzafafrvyc3417 [place] [address]Dr. Tadeo Smyth Crystals LM Nom (Urine sed) NONE SEEN Normal NONE SEEN The [facility] Comment on above: Performed By: #### U ACSBLANE, UMICRO ####[facility] Sodtxuqybe5846 [place] [address]Dr. Tadeo Smyth Epithelial cells LM Ql (Urine sed) RARE Normal NONE SEEN /RARE [facility] Comment on above: Performed By: #### U ACSBLANE, UMICRO ####[facility] Mhytitoeyh8249 [place] [address]Dr. Tadeo Smyth MUCOUS NONE SEEN Normal NONE SEEN [facility] Comment on above: Performed By: #### U ACSBLANE, UMICRO ####[facility] Vgxzustmpn3417 [place] [address]Dr. Tadeo Smyth RBC NONE SEEN Abnormal 0-2 [facility] Comment on above: Performed By: #### U ACSBLANE, UMICRO ####[facility] Dytckzepcz6668 [place] [address]Dr. Tadeo Smyth WBC 2-5 Abnormal NONE SEEN The [facility] Comment on above: Performed By: #### U ACSBLANE, ICRO ####[facility] Vuavtcrhfm7209 [place] [address]Dr. Tadeo Smyth XR ABD FLAT UP_PA Kasey 03-28 XR ABD FLAT UP_PA CH Normal The [facility] CBC AUTO DIFFon 03-27-2022 BASO # 0.0 103/ul Normal 0.0-0.1 [facility] Comment on above: Performed By: #### C BC ####[facility] Lpgukbgqll9398 [place] [address]Dr. Tadeo Smyth Basophils/100 WBC (Bld) 0.5 % Normal 0.2-2.0 [facility] Comment on above: Performed By: #### C BC ####[facility] Dsjcydslgt2996 [place] [address]Dr. Tadeo Smyth EO # 0.2 103/ul Normal 0.0-0.7 [facility] Comment on above: Performed By: #### C BC ####[facility] Ibjkzyxrfv34[address] [place], [place] [address]Dr. Tadeo Smyth Eosinophils/100 WBC (Bld) 3.2 % Normal 0.9-7.0 [facility] Comment on above: Performed By: #### C BC ####[facility] Ngvejjtqpw4023 [place] [address]Dr. Tadeo Smyth Erythrocyte distribution width (RBC) [Ratio] 13.1 % Normal 11.0-15.0 [facility] Comment on above: Performed By: #### C BC ####[facility] Clziceqaob3955[address] [place], [place] [address]Dr. Tadeo Smyth Hematocrit (Bld) [Volume fraction] 34.8 % Critically low 36.0-48.0 [facility] Comment on above: Performed By: #### C BC ####[facility] Xcjzikqccv[address] [place], [place] [address]Dr. Tadeo Smyth Hemoglobin (Bld) [Mass/Vol] 11.3 g/dL Critically low 12.0-16.0 [facility] Comment on above: Performed By: #### C BC ####[facility] Ummszzjvak2594[address] [place], [place] [address]Dr. Tadeo Smyth IG # 0.01 10e3/ul Normal 0.00-0.03 [facility] Comment on above: Performed By: #### C BC ####[facility] Rzagsclhfy6656[address] [place], [place] [address]Dr. Tadeo Smyth IG % 0.2 % Normal 0.0-0.5 [facility] Comment on above: Performed By: #### C BC ####[facility] Fqhtbewacn682[address] [place], [place] [address]Dr. Tadeo Smyth LYMPH # 1.6 103/ul Normal 1.2-3.8 [facility] Comment on above: Performed By: #### C BC ####[facility] Sgiwqwgnth5610[address] [place], [place] [address]Dr. Tadeo Smyth Lymphocytes/100 WBC (Bld) 29.1 % Normal 20.5-60.0 [facility] Comment on above: Performed By: #### C BC ####[facility] Kaegpeufth22[address] [place], [place] [address]Dr. Tadeo Smyth MANUAL DIFF REQ NO Normal [facility] Comment on above: Performed By: #### C BC ####[facility] Ckvfgntopk6265 [place] [address]Dr. Tadeo Haja MCH (RBC) [Entitic mass] 29.1 pg Normal 26.7-34.0 [facility] Comment on above: Performed By: #### C BC ####[facility] Blerrgeuql313[address] [place], [place] [address]Dr. Tadeo Haja MCHC (RBC) [Mass/Vol] 32.5 g/dL Normal 29.9-35.2 [facility] Comment on above: Performed By: #### C BC ####[facility] Cxkgkxfudd6014[address] [place], [place] [address]Dr. Tadeo Smyth MCV (RBC) [Entitic vol] 89.7 fL Normal 81.0-99.0 [facility] Comment on above: Performed By: #### C BC ####[facility] Trnovimlvn37[address] [place], [place] [address]Dr. Tadeo Smyth MONO # 0.3 103/ul Normal 0.3-0.8 [facility] Comment on above: Performed By: #### C BC ####[facility] Wlphuztoci3557[address] [place], [place] [address]Dr. Tadeo Smyth Monocytes/100 WBC (Bld) 5.7 % Normal 1.7-12.0 [facility] Comment on above: Performed By: #### C BC ####[facility] Ajqwdkwntf2787[address] [place], [place] [address]DrNeo Smyth NEUT # 3.5 103/ul Normal 1.4-6.5 [facility] Comment on above: Performed By: #### C BC ####[facility] Lvqffleahb8177[address] [place], [place] [address]DrNeo Smyth Neutrophils/100 WBC (Bld) 61.3 % Normal 43.0-75.0 [facility] Comment on above: Performed By: #### C BC ####[facility] Xxmpybllof5449[address] [place], [place] [address]Dr. Tadeo Smyth Platelet mean volume (Bld) [Entitic vol] 9.1 fL Critically low 9.5-13.5 [facility] Comment on above: Performed By: #### C BC ####[facility] Xguifwaiuu7475 [place], [place] [address]Eq. Tadeo Smyth PLT 355 103/ul Normal 150-450 [facility] Comment on above: Performed By: #### C BC ####[facility] Scvugqwmyz2337 [place], [place] [address]Gw. Tadeo Smyth RBC 3.88 106/ul Critically low 4.20-5.40 [facility] Comment on above: Performed By: #### C BC ####[facility] Eshtdtzoir3058 [place], [place] [address]Ss. Tadeo Smyth WBC 5.6 103/ul Normal 4.0-11.0 [facility] Comment on above: Performed By: #### C BC ####[facility] Ukgnhsyrvm4820 [place], [place] [address]Pt. Tadeo Smyth CT ABD/PELV W CONon 03-27-20 CT ABD/PELV W CON Normal [facility] CT ABD/PELVIS WO CONon 03-27 CT ABD/PELVIS WO CON Normal [facility]-06 SARS-CoV-2 (COVID-19) RNA CHEN+probe Ql (Unsp spec) Not detected Normal NOT DETECTED The [facility] Comment on above: Result Comment: When [...] for this test is supported by the [employer] of Health and Human Service's declaration that [...] be used). Performed By: #### C VDTBH ####[facility] Rqkpxovfgm8[address] [place], [place] [address]Dr. Margotnicole Haja ER URINE PROFILEon 2 Bilirubin Ql (U) Negative Normal NEGATIVE [facility] Comment on above: Performed By: #### E RUR, PREGU ####[facility] Ohvhpbftgp368[address] [place], [place] [address]Dr. Tadeo Smyth Clarity (U) CLEAR Normal CLEAR [facility] Comment on above: Performed By: #### E RUR, PREGU ####[facility] Nwtpybvuyt08[address] [place], [place] [address]Dr. Tadeo mSyth Color (U) LT. YELLOW Normal YELLOW [facility] Comment on above: Performed By: #### E RUR, PREGU ####[facility] Yizkfcqmfm1556[address] [place], [place] [address]Dr. Tadeo Smyth ERUAHD A micrscopic examina tion will be performed if indicated. Normal [facility] Comment on above: Performed By: #### E RUR, PREGU ####[facility] Yurgtggtdw[address] [place], [place] [address]Dr. Tadeo Smyth Glucose Ql (U) Negative Normal NEGATIVE [facility] Comment on above: Performed By: #### Matthew RUR, PREGU ####[facility] Qmxjdlzuiu0320[address] [place], [place] [address]Dr. Tadeo Smyth Hemoglobin Ql (U) SMALL Abnormal NEGATIVE [facility] Comment on above: Performed By: #### E RUR, PREGU ####[facility] Jjdycolazo26[address] [place], [place] [address]Dr. Tadeo Smyth Ketones Ql (U) TRACE Abnormal NEGATIVE The [facility] Comment on above: Performed By: #### E RUR, PREGU ####[facility] Vkibswnfga3069[address] [place], [place] [address]Dr. Tadeo Smyth LEUKOCYTES Negative Normal NEGATIVE The [facility] Comment on above: Performed By: #### E RUR, PREGU ####[facility] Lqsgsjjvtp2541 [place] [address]Dr. Tadeo Smyth Nitrite Ql (U) Negative Normal NEGATIVE [facility] Comment on above: Performed By: #### E RUR, PREGU ####[facility] Kqasrbfpns3064 [place] [address]Dr. Tadeo Smyth pH (U) 6.0 [pH] Normal 5-9 [facility] [facility] Comment on above: Performed By: #### E RUR, PREGU ####[facility] Jiygfvevht[address] [place], [place] [address]Dr. Tadeo Smyth SPEC GRAVITY >=1.030 Abnormal 1.005-<=1.0 25 [facility] Comment on above: Performed By: #### E RUR, PREGU ####[facility] Ctnszfuxsu[address] [place], [place] [address]Dr. Margotnicole Smyth UA PROTEIN Negative Normal NEGATIVE/ TRACE [facility] Comment on above: Performed By: #### E RUR, PREGU ####[facility] Tctnzyisuu7[address] [place], [place] [address]Dr. Margotnicole Smyth UR MICRO IND NOT INDICATED Normal [facility] Comment on above: Performed By: #### E RUR, PREGU ####[facility] Jbntldeuqa26[address] [place], [place] [address]Dr. Margotnicole Smyth Urobilinogen Qn (U) 0.2 {Benito'U}/dL Normal 0.2 - 1. 0 [facility] Comment on above: Performed By: #### E RUR, PREGU ####[facility] Jkbdisujqt23[address] [place], [place] [address]Dr. Margotnicole Smyth LIPASEon 03-27-2022 Lipase [Catalytic activity/Vol] 126.0 U/L Normal 73.0-393.0 [facility] Comment on above: Performed By: #### L IPA, CMP ####[facility] Qlnxankzfv000[address] [place], [place] [address]Dr. Tadeo Smyth URon 03-27-2022 , QUAL Negative Normal NEGATIVE [facility] Comment on above: Performed By: #### E RUR, PREGU ####[facility] [address] [place] [address]Dr. Tadeo Smyth PROF 14(COMP METB)on 022 Albumin [Mass/Vol] 3.6 g/dL Normal 3.4-5.0 [facility] Comment on above: Performed By: #### L IPA, CMP ####[facility] Wukhdunxqn[address] [place], [place] [address]Dr. Tadeo Smyth Albumin/Globulin [Mass ratio] 1.1 {ratio} Normal [facility] Comment on above: Performed By: #### L IPA, CMP ####[facility] Ekpglmxzcj0935[address] [place], [place] [address]Dr. Tadeo Smyth ALP [Catalytic activity/Vol] 139 U/L Critically high 46-116 [facility] Comment on above: Performed By: #### L IPA, CMP ####[facility] Xxdvzievii00[address] [place], [place] [address]Dr. Tadeo Smyth ALT [Catalytic activity/Vol] 18 U/L Normal 14-59 [facility] Comment on above: Performed By: #### L IPA, CMP ####[facility] Oprbkumelk32[address] [place], [place] [address]Dr. Tadeo Smyth Anion gap [Moles/Vol] 10.7 mmol/L Normal [facility] Comment on above: Performed By: #### L IPA, CMP ####[facility] Ajnemwaivq3814[address] [place], [place] [address]Dr. Tadeo Smyth AST [Catalytic activity/Vol] 11 U/L Critically low 15-37 [facility] Comment on above: Performed By: #### L IPA, CMP ####[facility] Vkasbrqbki7540[address] [place], [place] [address]Dr. Tadeo Smyth Bilirubin [Mass/Vol] 0.2 mg/dL Normal 0.2-1.0 [facility] Comment on above: Performed By: #### L IPA, CMP ####[facility] Wauvngklqq7037[address] [place], [place] [address]Dr. Tadeo Smyth Calcium [Mass/Vol] 9.0 mg/dL Normal 8.5-10.1 [facility] Comment on above: Performed By: #### L IPA, CMP ####[facility] [address] [place] [address]Dr. Tadeo Smyth Chloride [Moles/Vol] 106 mmol/L Normal 98-107 [facility] Comment on above: Performed By: #### L IPA, CMP ####[facility] Rhhrduwqpm2[address] [place] [address]Dr. Tadeo Smyth CO2 [Moles/Vol] 26.9 mmol/L Normal 21.0-32.0 [facility] Comment on above: Performed By: #### L IPA, CMP ####[facility] Raqstxxzll01[address] [place], [place] [address]Dr. Tadeo Smyth Creatinine [Mass/Vol] 0.84 mg/dL Normal 0.55-1.02 [facility] Comment on above: Performed By: #### L IPA, CMP ####[facility] Cmkbstzyyf[address] [place], [place] [address]Dr. Tadeo Smyth EGFR-AF EGYPTIAN >60 Normal >=60 [facility] Comment on above: Performed By: #### L IPA, CMP ####[facility] Vnkukshhmf[address] [place], [place] [address]Dr. Tadeo Smyth EGFR-NON AF EGYPTIAN >60 Normal >=60 [facility] Comment on above: Performed By: #### L IPA, CMP ####[facility] Xlwtiabvhh3764[address] [place], [place] [address]Dr. Margotnicole Smyth Globulin (S) [Mass/Vol] 3.4 g/dL Normal [facility] Comment on above: Performed By: #### L IPA, CMP ####[facility] Oxhkdefdwj3355[address] [place], [place] [address]Dr. Margotnicole Haja Glucose [Mass/Vol] 96 mg/dL Normal 74-106 [facility] Comment on above: Performed By: #### L IPA, CMP ####[facility] Dmrgusemoy5196[address] [place], [place] [address]Dr. Tadeo Smyth Potassium [Moles/Vol] 3.6 mmol/L Normal 3.5-5.1 [facility] Comment on above: Performed By: #### L IPA, CMP ####[facility] Jktkeebdat[address]30[address] [place], [place] [address]Dr. Tadeo Smyth Protein [Mass/Vol] 7.0 g/dL Normal 6.4-8.2 [facility] Comment on above: Performed By: #### L IPA, CMP ####[facility] Xkffzbiplt8450[address] [place], [place] [address]Dr. Tadeo Smyth Sodium [Moles/Vol] 140 mmol/L Normal 136-145 [facility] Comment on above: Performed By: #### L IPA, CMP ####[facility] Rohvzouidp938[address] [place], [place] [address]Dr. Tadeo Smyth Urea nitrogen [Mass/Vol] 23.0 mg/dL Critically high 7.0-18.0 [facility] Comment on above: Performed By: #### L IPA, CMP ####[facility] Eqrbcajfsc[address] [place], [place] [address]Dr. Tadeo Smyth Urea nitrogen/Creatinine [Mass ratio] 27.4 mg/mg Normal [facility] Comment on above: Performed By: #### L IPA, CMP ####[facility] Epcufueruz6124[address] [place], [place] [address]Dr. Tadeo Haja GROUP A STREP CULTUREon S. pyogenes Ag Ql (Unsp spec) Normal [facility] Comment on above: Performed By: #### G RASTCX, SSCRN ####[facility] Mjkwwsmugt[address] [place], [place] [address]Dr. Tadeo Smyth AMYLASEon 02-02-2022 Amylase [Catalytic activity/Vol] 37 U/L Normal 25-115 [facility] Comment on above: Performed By: #### C MP, VIJI, LIPA ####[facility] Sqyrzanaxk4301[address] [place], [place] [address]Dr. Tadeo Smyth CBC AUTO DIFFon 02-02-2022 BASO # 0.0 103/ul Normal 0.0-0.1 [facility] Comment on above: Performed By: #### C BC ####[facility] F[address] [place] [address]Dr. Tadeo Smyth Basophils/100 WBC (Bld) 0.2 % Normal 0.2-2.0 [facility] Comment on above: Performed By: #### C BC ####[facility] Remvzpkxan7548[address] [place], [place] [address]Dr. Tadeo Smyth EO # 0.0 103/ul Normal 0.0-0.7 [facility] Comment on above: Performed By: #### C BC ####[facility] Cyiljzpnpi[address] [place], [place] [address]Dr. Tadeo Smyth Eosinophils/100 WBC (Bld) 0.2 % Critically low 0.9-7.0 [facility] Comment on above: Performed By: #### C BC ####[facility] Rmuvvjostd[address]255[address] [place], [place] [address]Dr. Tadeo Smyth Erythrocyte distribution width (RBC) [Ratio] 13.4 % Normal 11.0-15.0 [facility] Comment on above: Performed By: #### C BC ####[facility] Olvzygxpub[address] [place], [place] [address]Dr. Tadeo Smyth Hematocrit (Bld) [Volume fraction] 36.8 % Normal 36.0-48.0 [facility] Comment on above: Performed By: #### C BC ####[facility] Iijvtewbuv9466[address] [place], [place] [address]Dr. Tadeo Smyth Hemoglobin (Bld) [Mass/Vol] 11.6 g/dL Critically low 12.0-16.0 [facility] Comment on above: Performed By: #### C BC ####[facility] Wiibqcswod[address] [place], [place] [address]Dr. Tadeo Smyth IG # 0.08 10e3/ul Critically high 0.00-0.03 [facility] Comment on above: Performed By: #### C BC ####[facility] Muajegadti[address] [place], [place] [address]Dr. Margotnicole Smyth IG % 0.6 % Critically high 0.0-0.5 [facility] Comment on above: Performed By: #### C BC ####[facility] [address] [place] [address]Dr. Tadeo Haja LYMPH # 0.9 103/ul Critically low 1.2-3.8 [facility] Comment on above: Performed By: #### C BC ####[facility] I[address]qukowkx[address] [place] [address]Dr. Tadeo Smyth Lymphocytes/100 WBC (Bld) 6.9 % Critically low 20.5-60.0 [facility] Comment on above: Performed By: #### C BC ####[facility] [address] [place] [address]Dr. Tadeo Smyth MANUAL DIFF REQ NO Normal [facility] Comment on above: Performed By: #### C BC ####[facility] Lzqgqneibx[address] [place], [place] [address]Dr. Tadeo Smyth MCH (RBC) [Entitic mass] 28.9 pg Normal 26.7-34.0 [facility] Comment on above: Performed By: #### C BC ####[facility] Ndpcjkwxvy64[address] [place], [place] [address]Dr. Margotnicole Smyth MCHC (RBC) [Mass/Vol] 31.5 g/dL Normal 29.9-35.2 [facility] Comment on above: Performed By: #### C BC ####[facility] [address] [place] [address]Dr. Tadeo Smyth MCV (RBC) [Entitic vol] 91.8 fL Normal 81.0-99.0 [facility] Comment on above: Performed By: #### C BC ####[facility] [address] [place] [address]DrNeo Smyth MONO # 0.9 103/ul Critically high 0.3-0.8 [facility] Comment on above: Performed By: #### C BC ####[facility] [address] [place] [id number]. Tadeo Smyth Monocytes/100 WBC (Bld) 6.9 % Normal 1.7-12.0 [facility] Comment on above: Performed By: #### C BC ####[facility] [address] [place] [id number]. Tadeo Smyth NEUT # 11.6 103/ul Critically high 1.4-6.5 [facility] Comment on above: Performed By: #### C BC ####[facility] Upiv[address] [place] [id number]. Tadeo Smyth Neutrophils/100 WBC (Bld) 85.2 % Critically high 43.0-75.0 [facility] Comment on above: Performed By: #### C BC ####[facility] Upmfvtbpws[address] [place] [address]Dr. Tadeo Smyth Platelet mean volume (Bld) [Entitic vol] 8.9 fL Critically low 9.5-13.5 [facility] Comment on above: Performed By: #### C BC ####[facility] Jiv[address]ug[address] [place] [id number]. Tadeo Smyth PLT 331 103/ul Normal 150-450 [facility] Comment on above: Performed By: #### C BC ####[facility] Srmlnoubbu7[address] [place] [id number]. Tadeo Smyth RBC 4.01 106/ul Critically low 4.20-5.40 [facility] Comment on above: Performed By: #### C BC ####[facility] Iliyg[address]rbzu[address] [place] [address]Dr. Tadeo Smyth WBC 13.7 103/ul Critically high 4.0-11.0 [facility] Comment on above: Performed By: #### C BC ####[facility] Qzleslnfcv4068 [place] [id number]. Tadeo Smyth Covid-19 PCR ([facility])on 01-05 SARS-CoV-2 (COVID-19) RNA CHEN+probe Ql (Unsp spec) Not detected Normal NOT DETECTED The [facility] Comment on above: Result Comment: When [...] for this test is supported by the [place] of Health and Human Service's declaration that [...] be used). Performed By: #### C VDTBH ####[facility] Jtbkopslrl[address] [place], [place] [address]DrNeo Smyth LIPASEon 02-02-2022 Lipase [Catalytic activity/Vol] 33.0 U/L Critically low 73.0-393.0 [facility] Comment on above: Performed By: #### C MP VIJI, LIPA ####[facility] Nzyygblyav7[address] [place], [place] [address]Dr. Tadeo Smyth MONOon 02-02-2022 Monocytes (Bld) [#/Vol] Negative Normal NEGATIVE [facility] Comment on above: Performed By: #### M JESSICA ####[facility] Ygbgzxazfb[address] [place], [place] [address]DrNeo Smyth PROF 14(COMP METB)on 022 Albumin [Mass/Vol] 3.1 g/dL Critically low 3.4-5.0 Th e [facility] Comment on above: Performed By: #### C MP, VIJI, LIPA ####[facility] Mvtzmspzpm[address] [place], [place] [address]DrNeo Smyth Albumin/Globulin [Mass ratio] 0.9 {ratio} Normal [facility] Comment on above: Performed By: #### C MP, VIJI, LIPA ####[facility] Skinqntobi[address] [place] [address]DrNeo Smyth ALP [Catalytic activity/Vol] 131 U/L Critically high 46-116 [facility] Comment on above: Performed By: #### C VIJI GARCIA LIPA ####[facility] [address]ekhfqpbmb[address] [place] [address]Dr. Tadeo Smyth ALT [Catalytic activity/Vol] 25 U/L Normal 14-59 [facility] Comment on above: Performed By: #### C VIJI GARCIA LIPA ####[facility] Vfwr[address]uxqmn[address] [place] [address]Dr. Tadeo Smyth Anion gap [Moles/Vol] 10.0 mmol/L Normal Th [facility] Comment on above: Performed By: #### C VIJI GARCIA LIPA ####[facility] H[address]uckq[address] [place] [address]Dr. Tadeo Smyth AST [Catalytic activity/Vol] 19 U/L Normal 15-37 [facility] Comment on above: Performed By: #### C VIJI GARCIA LIPA ####[facility] Oucxjez[address] [place] [address]Dr. Tadeo Smyth Bilirubin [Mass/Vol] 0.6 mg/dL Normal 0.2-1.0 [facility] Comment on above: Performed By: #### C VIJI GARCIA LIPA ####[facility] Y[address]xzw[address] [place] [address]Dr. Tadeo Smyth Calcium [Mass/Vol] 8.2 mg/dL Critically low 8.5-10.1 [facility] Comment on above: Performed By: #### C VIJI GARCIA LIPA ####[facility] [address] [place] [address]Dr. Tadeo Smyth Chloride [Moles/Vol] 106 mmol/L Normal 98-107 The [facility] Comment on above: Performed By: #### C VIJI GARCIA LIPA ####[facility] Nqgbhrfofm4[address] [place] [address]Dr. Tadeo Smyth CO2 [Moles/Vol] 25.5 mmol/L Normal 21.0-32.0 [facility] Comment on above: Performed By: #### C VIJI GARCIA LIPA ####[facility] [address]ichfmpk[address] [place] [address]Dr. Tadeo Smyth Creatinine [Mass/Vol] 0.78 mg/dL Normal 0.55-1.02 [facility] Comment on above: Performed By: #### C MP, VIJI, LIPA ####[facility] Yushvdc[address] [place] [address]Dr. Tadeo Smyth EGFR-AF EGYPTIAN >60 Normal >=60 [facility] Comment on above: Performed By: #### C MP, VIJI, LIPA ####[facility] [address]bz[address]xto[address] [place] [address]Dr. Tadeo Smyth EGFR-NON AF EGYPTIAN >60 Normal >=60 [facility] Comment on above: Performed By: #### C MP, VIJI, LIPA ####[facility] Recfqbjolq[address] [place] [address]Dr. Tadeo Smyth Globulin (S) [Mass/Vol] 3.6 g/dL Normal [facility] Comment on above: Performed By: #### C MP, VIJI, LIPA ####[facility] Sz[address]uqccj[address] [place] [address]Dr. Tadeo Smyth Glucose [Mass/Vol] 110 mg/dL Critically high 74-106 [facility] Comment on above: Performed By: #### C MP, VIJI, LIPA ####[facility] Easekmhqds[address] [place] [address]Dr. Tadeo Smyth Potassium [Moles/Vol] 3.5 mmol/L Normal 3.5-5.1 The [facility] Comment on above: Performed By: #### C MP, VIJI, LIPA ####[facility] Fefdmxvgtp[address] [place] [address]Dr. Tadeo Smyth Protein [Mass/Vol] 6.7 g/dL Normal 6.4-8.2 The [facility] Comment on above: Performed By: #### C MP, VIJI, LIPA ####[facility] [address]qxtrtaaa[address] [place] [address]Dr. Tadeo Smyth Sodium [Moles/Vol] 138 mmol/L Normal 136-145 The [facility] Comment on above: Performed By: #### C MP, VIJI, LIPA ####[facility] Ilwobraeiv[address] [place] [address]Dr. Tadeo Smyth Urea nitrogen [Mass/Vol] 11.0 mg/dL Normal 7.0-18.0 [facility] Comment on above: Performed By: #### C MP, VIJI, LIPA ####[facility] Jsvvfnqrgf67[address] [place] [id number]. Tadeo Smyth Urea nitrogen/Creatinine [Mass ratio] 14.1 mg/mg Normal [facility] Comment on above: Performed By: #### C MP, VIJI, LIPA ####[facility] Hscjdz[address]hh[address] [place] [address]Dr. Tadeo Smyth STREPT SCREENon 02-02-2022 STREP SCREEN A Negative Normal NEGATIVE [facility] Comment on above: Performed By: #### G RASTCX, SSCRN ####[facility] Vx[address]qrt[address] [place] [address]Dr. Tadeo Smyth BASIC METABOLIC PANELon 08-05 Calcium [Mass/Vol] 8.4 mg/dL Low 8.6-10.3 [facility] Comment on above: Order Comment: No: D o not add to previous draw Performed By: #### 3 900, 11921 #### [facility] [address] [place] [address], [place] Chloride [Moles/Vol] 108 mmol/L High 98-107 [facility] Comment on above: Order Comment: No: D o not add to previous draw Performed By: #### 3 388, 04896 #### [facility] [address] [place] [address], [place] CO2 [Moles/Vol] 26 mmol/L Normal 21-31 [facility] Comment on above: Order Comment: No: D o not add to previous draw Performed By: #### 3 145, 99228 #### [facility] [address] [place] [address], [place] Creatinine [Mass/Vol] 0.79 mg/dL Normal 0.60-1.20 [facility] Comment on above: Order Comment: No: D o not add to previous draw Performed By: #### 3 261, 43782 #### [facility] [address] [place] [address], [place] GFR/1.73 sq M predicted among blacks MDRD (S/P/Bld) [Vol rate/Area] mL/min/{1.73_m2} Normal >60 [facility] Comment on above: Order Comment: No: D o not add to previous draw Performed By: #### 3 092, 06310 #### [facility] [address] [place] [address], [place] GFR/1.73 sq M predicted among non-blacks MDRD (S/P/Bld) [Vol rate/Area] mL/min/{1.73_m2} Normal >60 [facility] Comment on above: Order Comment: No: D o not add to previous draw Performed By: #### 3 450, 24571 #### [facility] [address] [place] [address], [place] Glucose [Mass/Vol] 98 mg/dL Normal 70-100 [facility] Comment on above: Order Comment: No: D o not add to previous draw Performed By: #### 3 161, 52146 #### [facility] [address] [place] [address], [place] Potassium [Moles/Vol] 3.5 mmol/L Normal 3.5-5.1 [facility] Comment on above: Order Comment: No: D o not add to previous draw Performed By: #### 3 171, 04920 #### [facility] [address] [place] [address], [place] Sodium [Moles/Vol] 139 mmol/L Normal 136-145 [facility] Comment on above: Order Comment: No: D o not add to previous draw Performed By: #### 3 6901, 95536 #### [facility] [address] Urea nitrogen [Mass/Vol] 11 mg/dL Normal 7-25 [facility] Comment on above: Order Comment: No: D o not add to previous draw Performed By: #### 3 6901, 15693 #### [facility] [address] [place] [address], [facility] BLOOD STOOL GUAIACon 019 BLD STOOL GUAIAC Negative Normal NEGATIVE [facility] Comment on above: Order Comment: No: D o not add to previous draw Performed By: #### 3 6901, 15972 #### [facility] [address] [facility] [address] MAGNESIUM BLOODon 08-16-2019 Magnesium [Mass/Vol] 2.0 mg/dL Normal 1.9-2.7 [facility] Comment on above: Order Comment: No: D o not add to previous draw Performed By: #### 3 6901, 99523 #### [facility] [address] [facility]. [address] *URINE CULTUREon 08-15-2019 Bacteria identified Cx Nom (U) Clinical Report: (D) Specimen/Source: URINE/MIDSTREAM Collected: 08/15/2019 20:40 Status: Final Last Updated: 08/17/2019 08:05 ISO (Final) Escherichia coli >100,000 Cfu/Ml ISOLATE: Escherichia coli RHONDA (mcg/ml) AMP./SULBAC (AMS) 16/8 Intermediate AMPICILLIN (AM) >16 Resistant AZTREONAM (AZM) <=1 Susceptible CEFAZOLIN (CZ) 2 Susceptible CEFTRIAXONE (WIRE CHIEF) <=0.5 Susceptible CIPROFLOXACIN (CIP) >2 Resistant ESBL (-/+) (ESBL) Negative GENTAMICIN (GM) <=1 Susceptible NITROFURANTOIN (FT) <=16 Susceptible PIP/TAZO (TZP) 4/4 Susceptible TOBRAMYCIN (TOB) 1 Susceptible TRIMETH/SULFA (SXT) >2/38 Resistant Normal [facility] Comment on above: Performed By: #### 3 6901, 06103 #### [facility] [address] [place] [address], [facility] BASIC METABOLIC PANELon 12-1 Calcium [Mass/Vol] 8.8 mg/dL Normal 8.6-10.3 [facility] Comment on above: Order Comment: No: D o not add to previous draw Performed By: #### 0 0071, 63280, 53218 #### [facility] [address] [place] [address], [facility] Chloride [Moles/Vol] 107 mmol/L Normal 98-107 [facility] Comment on above: Order Comment: No: D o not add to previous draw Performed By: #### 0 0071, 42090, 70425 #### [facility] [address] [place] [address], [facility] CO2 [Moles/Vol] 27 mmol/L Normal 21-31 [facility] Comment on above: Order Comment: No: D o not add to previous draw Performed By: #### 0 0071, 14720, 13093 #### [facility] [address] [place] [address], [facility] Creatinine [Mass/Vol] 0.99 mg/dL Normal 0.60-1.20 [facility] Comment on above: Order Comment: No: D o not add to previous draw Performed By: #### 0 0071, 60787, 54393 #### [facility] [address] [place] [address], [facility] GFR/1.73 sq M predicted among blacks MDRD (S/P/Bld) [Vol rate/Area] mL/min/{1.73_m2} Normal >60 [facility] Comment on above: Order Comment: No: D o not add to previous draw Performed By: #### 0 0071, [id number], [id number] #### [facility] [address] [place] [address], [facility] GFR/1.73 sq M predicted among non-blacks MDRD (S/P/Bld) [Vol rate/Area] 59 ml/min/1.73sq m Abnormal >60 [facility] Comment on above: Order Comment: No: D o not add to previous draw Performed By: #### 0 0071, 83673, 33445 #### [facility] [address] [place] [address], [facility] Glucose [Mass/Vol] 100 mg/dL Normal 70-100 [facility] Comment on above: Order Comment: No: D o not add to previous draw Performed By: #### 0 0071, 05336, 67374 #### [facility] [address] [place] [address], [place] Potassium [Moles/Vol] 3.6 mmol/L Normal 3.5-5.1 [facility] Comment on above: Order Comment: No: D o not add to previous draw Performed By: #### 0 0071, 79763, 08355 #### [facility] [address] [place] [address], [place] Sodium [Moles/Vol] 140 mmol/L Normal 136-145 [facility] Comment on above: Order Comment: No: D o not add to previous draw Performed By: #### 0 0071, 68142, 51540 #### [facility] [address] [place] [address], [place] Urea nitrogen [Mass/Vol] 9 mg/dL Normal 7-25 [facility] Comment on above: Order Comment: No: D o not add to previous draw Performed By: #### 0 0071, 67426, 93976 #### [facility] [address] [place] [address], [place] LACTATE BLOODon 08-15-2019 Lactate [Moles/Vol] 0.8 mmol/L Normal 0.5-2.2 [facility] Comment on above: Order Comment: Yes: Add to Previous draw if able Performed By: #### 1 0054 #### [facility] [address] LMWH HEPARIN ASSAYon 019 LOW MOLECULAR WEIGHT HEPARIN 0.32 IU/mL Low 0.60-1.20 [facility] Comment on above: Order Comment: (draw [...] and LMWH. Performed By: #### 3 6901, 86861 #### [facility] [address] [place] [address], [facility] MAGNESIUM BLOODon 08-15-2019 Magnesium [Mass/Vol] 1.7 mg/dL Low 1.9-2.7 [facility] Comment on above: Order Comment: No: D o not add to previous draw Performed By: #### 0 0071, 44509, 02476 #### [facility] [address] [place] [address], [facility] PHOSPHORUS BLOODon 9 Phosphate [Mass/Vol] 4.1 mg/dL Normal 2.5-5.0 [facility] Comment on above: Order Comment: No: D o not add to previous draw Performed By: #### 0 0071, 30017, 31077 #### [facility] [address] [place] [address], [facility] UGI WITH SMALL BOWELon 08-15 UGI WITH SMALL BOWEL [facility] Department of Radiology [address] [place] [address] Patient Name: CONSTANTINO CARDOSO : 1970 Sex: F Age: Race: White Pt. Location: [id number] Patient Status: O Ordered Date: 08/15/2019 10:45:00 [...] ischemia. Electronically signed by:Orestes Condon. Transcribed by: [email or web address], User Resident: Electronically Signed by: ORESTES CONDON @ 08/15/2019 04:13 PM Normal [facility] Comment on above: Order Comment: R/O O bstruction URINALYSIS REFLEXon 08-15-20 Appearance (U) SL CLOUDY Abnormal CLEAR [facility] Comment on above: Order Comment: No: D o not add to previous drawCriteria for reflexing a culture was met. Urine Culture and sensitivitywill be performed. Performed By: #### 3 3571, 07534 #### [facility] [address] [place] [address], [facility] Bilirubin [Mass/Vol] Negative Normal NEGATIVE [facility] Comment on above: Order Comment: No: D o not add to previous drawCriteria for reflexing a culture was met. Urine Culture and sensitivitywill be performed. Performed By: #### 3 3351, 56463 #### [facility] [address] [place] [address], [place] BLOOD SMALL Abnormal NEGATIVE [facility] Comment on above: Order Comment: No: D o not add to previous drawCriteria for reflexing a culture was met. Urine Culture and sensitivitywill be performed. Performed By: #### 3 4751, 04453 #### [facility] [address] [place] [address], [place] Color (U) YELLOW Normal YELLOW [facility] Comment on above: Order Comment: No: D o not add to previous drawCriteria for reflexing a culture was met. Urine Culture and sensitivitywill be performed. Performed By: #### 3 8071, 49204 #### [facility] [address] [place] [address], [place] EPIS OCC Normal FEW,OCC,NON E SEEN [facility] Comment on above: Order Comment: No: D o not add to previous drawCriteria for reflexing a culture was met. Urine Culture and sensitivitywill be performed. Performed By: #### 3 3151, 59814 #### [facility] [address] [place] [address], [facility] Glucose [Mass/Vol] Negative Normal NEGATIVE [facility] Comment on above: Order Comment: No: D o not add to previous drawCriteria for reflexing a culture was met. Urine Culture and sensitivitywill be performed. Performed By: #### 3 6901, 26937 #### [facility] [address] [place] [address], [facility] HYALINE CASTS 6-10 Abnormal NONE SEEN [facility] Comment on above: Order Comment: No: D o not add to previous drawCriteria for reflexing a culture was met. Urine Culture and sensitivitywill be performed. Performed By: #### 3 5061, 63200 #### [facility] [address] [place] [address], [facility] KETONE Negative Normal NEGATIVE [facility] Comment on above: Order Comment: No: D o not add to previous drawCriteria for reflexing a culture was met. Urine Culture and sensitivitywill be performed. Performed By: #### 3 0241, 36125 #### [facility] [address] [place] [address], [facility] LEUK JONN MODERATE Abnormal NEGATIVE [facility] Comment on above: Order Comment: No: D o not add to previous drawCriteria for reflexing a culture was met. Urine Culture and sensitivitywill be performed. Performed By: #### 3 6901, 13094 #### [facility] [address] [place] [address], [place] MUCUS THREADS FEW Abnormal NONE SEEN [facility] Comment on above: Order Comment: No: D o not add to previous drawCriteria for reflexing a culture was met. Urine Culture and sensitivitywill be performed. Performed By: #### 3 690, 84502 #### [facility] [address] [place] [address], [facility] Nitrite Ql (U) Negative Normal NEGATIVE [facility] Comment on above: Order Comment: No: D o not add to previous drawCriteria for reflexing a culture was met. Urine Culture and sensitivitywill be performed. Performed By: #### 3 690, 73880 #### [facility] [address] [place] [address], [facility] pH (Bld) 5.0 Normal 5.0-8.0 [facility] Comment on above: Order Comment: No: D o not add to previous drawCriteria for reflexing a culture was met. Urine Culture and sensitivitywill be performed. Performed By: #### 3 690, 00590 #### [facility] [address] [facility] [address] Protein (U) [Mass/Vol] Negative Normal NEGATIVE [facility] Comment on above: Order Comment: No: D o not add to previous drawCriteria for reflexing a culture was met. Urine Culture and sensitivitywill be performed. Performed By: #### 3 690, 90041 #### [facility] [address] [place] [address], [facility] RBC (U) [#/Vol] 6-10 Abnormal NONE SEEN [facility] Comment on above: Order Comment: No: D o not add to previous drawCriteria for reflexing a culture was met. Urine Culture and sensitivitywill be performed. Performed By: #### 3 690, 60512 #### [facility] [address] [facility] [place] [address], [facility] SPEC GRAV 1.025 High 1.015-1.020 [facility] Comment on above: Order Comment: No: D o not add to previous drawCriteria for reflexing a culture was met. Urine Culture and sensitivitywill be performed. Performed By: #### 3 6901, 03294 #### [facility] [address] [place] [address], [facility] WBC UA 51-100 Abnormal NONE SEEN [facility] Comment on above: Order Comment: No: D o not add to previous drawCriteria for reflexing a culture was met. Urine Culture and sensitivitywill be performed. Performed By: #### 3 4591, 61330 #### [facility] [address] [place] [address], [facility] CBC COMPLETE BLOOD COUNTon 10-15-2018 Erythrocyte distribution width (RBC) [Ratio] 12.7 % Normal 11.5-15.0 [facility] Comment on above: Order Comment: No: D o not add to previous draw Performed By: #### 5 0608 #### [facility] [address] Hematocrit (Bld) [Volume fraction] 31.2 % Low 36.0-45.0 [facility] Comment on above: Order Comment: No: D o not add to previous draw Performed By: #### 5 0608 #### [facility] [address] [facility] [place] [address], [facility] Hemoglobin (Bld) [Mass/Vol] 9.8 g/dL Low 12.0-15.0 [facility] Comment on above: Order Comment: No: D o not add to previous draw Performed By: #### 5 0608 #### [facility] [address] [place] [address], [facility] MCH (RBC) [Entitic mass] 29.1 pg Normal 27.0-33.0 [facility] Comment on above: Order Comment: No: D o not add to previous draw Performed By: #### 5 0608 #### [facility] [address] [place] [address], [facility] MCHC (RBC) [Mass/Vol] 31.4 g/dL Low 32.0-35.0 [facility] Comment on above: Order Comment: No: D o not add to previous draw Performed By: #### 5 0608 #### [facility] [address] [place] [address], [facility] MCV (RBC) [Entitic vol] 92.6 fL Normal 82.0-98.0 [facility] Comment on above: Order Comment: No: D o not add to previous draw Performed By: #### 5 0608 #### [facility] [address] [place] [address], [facility] Nucleated RBC/100 WBC (Bld) [Ratio] 0 % Normal 0-0 [facility] Comment on above: Order Comment: No: D o not add to previous draw Performed By: #### 5 0608 #### [facility] [address] [place] [address], [facility] PLAT CNT 340 10*3/uL Normal 150-400 [facility] Comment on above: Order Comment: No: D o not add to previous draw Performed By: #### 5 0608 #### [facility] [address] [place] [address], [facility] RBC (Bld) [#/Vol] 3.37 10*6/uL Low 3.80-5.00 [facility] Comment on above: Order Comment: No: D o not add to previous draw Performed By: #### 5 0608 #### [facility] [address] [facility] [place] [address], [facility] WBC (Bld) [#/Vol] 6.04 10*3/uL Normal 4.00-10.60 [facility] Comment on above: Order Comment: No: D o not add to previous draw Performed By: #### 5 0608 #### [facility] [address] [place] [address], [facility] PROTHROMBIN TIMEon 12-10-201 9 INR Coag (PPP) [Relative time] 1.09 {INR} Normal 0.91-1.16 [facility] Comment on above: Order Comment: No: [...] 1995;108:[id number]. Performed By: #### 5 6101 #### [address] PT Coag (PPP) [Time] 14.1 s Normal 12.3-14.8 [facility] Comment on above: Order Comment: No: D o not add to previous draw Result Comment: ALL RESULTS MUST BE INTERPRETED WITH RESPECT TO BLOOD DRAWING ARTIFACT OR DILUTION ERROR OF ANTICOAGULANT AT THE TIME OF SAMPLING. Performed By: #### 5 6101 #### [address] 08-14-2019 [facility] Department of Radiology [address] [place] [id number] Patient Name: CONSTANTINO CARDOSO : 1970 Sex: F Age: Race: White Pt. Location: [address] [place] [address] Patient Status: O Ordered Date: 08/13/2019 8:30:00 [...] cholecystectomy. Electronically signed by:Orestes Condon. Transcribed by: [email or web address], User Resident: Electronically Signed by: ORESTES CONDON @ 08/14/2019 02:09 PM Normal [facility] Comment on above: Order Comment: R/O S tones BASIC METABOLIC PANELon 12-0 Calcium [Mass/Vol] 9.4 mg/dL Normal 8.6-10.3 [facility] Comment on above: Order Comment: No: D o not add to previous draw Performed By: #### 3 6901, 76922 #### [facility] [address] [place] [address], [facility] Chloride [Moles/Vol] 105 mmol/L Normal 98-107 [facility] Comment on above: Order Comment: No: D o not add to previous draw Performed By: #### 3 367, 27182 #### [facility] [address] [place] [address], [place] CO2 [Moles/Vol] 26 mmol/L Normal 21-31 [facility] Comment on above: Order Comment: No: D o not add to previous draw Performed By: #### 3 904, 64292 #### [facility] [address] [place] [address], [place] Creatinine [Mass/Vol] 1.03 mg/dL Normal 0.60-1.20 [facility] Comment on above: Order Comment: No: D o not add to previous draw Performed By: #### 3 246, 31704 #### [facility] [address] [place] [address], [place] GFR/1.73 sq M predicted among blacks MDRD (S/P/Bld) [Vol rate/Area] mL/min/{1.73_m2} Normal >60 [facility] Comment on above: Order Comment: No: D o not add to previous draw Performed By: #### 3 405, 53541 #### [facility] [address] [place] [address], [place] GFR/1.73 sq M predicted among non-blacks MDRD (S/P/Bld) [Vol rate/Area] 57 ml/min/1.73sq m Abnormal >60 [facility] Comment on above: Order Comment: No: D o not add to previous draw Performed By: #### 3 172, 21657 #### [facility] [address] [place] [address], [place] Glucose [Mass/Vol] 96 mg/dL Normal 70-100 [facility] Comment on above: Order Comment: No: D o not add to previous draw Performed By: #### 3 955, 35666 #### [facility] [address] [place] [address], [facility] Potassium [Moles/Vol] 4.1 mmol/L Normal 3.5-5.1 [facility] Comment on above: Order Comment: No: D o not add to previous draw Performed By: #### 3 6901, 65567 #### [facility] [address] [place] [address], [facility] Sodium [Moles/Vol] 138 mmol/L Normal 136-145 [facility] Comment on above: Order Comment: No: D o not add to previous draw Performed By: #### 3 690, 54770 #### [facility] [address] [place] [address], [facility] Urea nitrogen [Mass/Vol] 16 mg/dL Normal 7-25 [facility] Comment on above: Order Comment: No: D o not add to previous draw Performed By: #### 3 639, 33552 #### [facility] [address] [place] [address], [facility] CBC W/DIFFon 08-13-2019 ABS BASOPHILS 0.0 10*3/uL Normal 0.0-0.2 [facility] Comment on above: Order Comment: No: D o not add to previous draw Performed By: #### 5 0103 #### [facility] [address] [facility] [place] [address], [facility] ABS IMM GRANS 0.0 10*3/uL Normal 0.0-0.2 [facility] Comment on above: Order Comment: No: D o not add to previous draw Performed By: #### 5 0103 #### [facility] [address] [place] [address], [facility] ABS NEUTROPHILS 4.0 10*3/uL Normal 1.6-7.6 [facility] Comment on above: Order Comment: No: D o not add to previous draw Performed By: #### 5 0103 #### [facility] [address] [place] [id number], [facility] Basophils/100 WBC (Bld) 0.5 % Normal 0.0-1.0 [facility] Comment on above: Order Comment: No: D o not add to previous draw Performed By: #### 5 0103 #### [facility] [address] [place] [address], [facility] Eosinophils (Bld) [#/Vol] 0.2 10*3/uL Normal 0.0-0.5 [facility] Comment on above: Order Comment: No: D o not add to previous draw Performed By: #### 5 0103 #### [facility] [address] [place] [id number], [facility] Eosinophils/100 WBC (Bld) 3.3 % Normal 0.0-6.0 [facility] Comment on above: Order Comment: No: D o not add to previous draw Performed By: #### 5 0103 #### [facility] [address] [place] [address], [facility] Erythrocyte distribution width (RBC) [Ratio] 12.7 % Normal 11.5-15.0 [facility] Comment on above: Order Comment: No: D o not add to previous draw Performed By: #### 5 3 #### [facility] [address] [place] [address], [facility] Hematocrit (Bld) [Volume fraction] 33.4 % Low 36.0-45.0 [facility] Comment on above: Order Comment: No: D o not add to previous draw Performed By: #### 5 0103 #### [facility] [address] [place] [id number], [facility] Hemoglobin (Bld) [Mass/Vol] 10.5 g/dL Low 12.0-15.0 [facility] Comment on above: Order Comment: No: D o not add to previous draw Performed By: #### 5 0103 #### [facility] [address] [facility] IMMATURE GRANS 0.2 % Normal 0.0-1.0 [facility] Comment on above: Order Comment: No: D o not add to previous draw Performed By: #### 5 0103 #### [facility] [address] [place] [address], [facility] Lymphocytes (Bld) [#/Vol] 1.8 10*3/uL Normal 1.2-4.0 [facility] Comment on above: Order Comment: No: D o not add to previous draw Performed By: #### 5 0103 #### [facility] [address] [place] [address], [facility] Lymphocytes/100 WBC (Bld) 28.2 % Normal 20.0-45.0 [facility] Comment on above: Order Comment: No: D o not add to previous draw Performed By: #### 5 0103 #### [facility] [address] [place] [address], [facility] MCH (RBC) [Entitic mass] 28.9 pg Normal 27.0-33.0 [facility] Comment on above: Order Comment: No: D o not add to previous draw Performed By: #### 5 0103 #### [facility] [address] [facility] [place] [address], [facility] MCHC (RBC) [Mass/Vol] 31.4 g/dL Low 32.0-35.0 [facility] Comment on above: Order Comment: No: D o not add to previous draw Performed By: #### 5 0103 #### [facility] [address] [place] [address], [facility] MCV (RBC) [Entitic vol] 92.0 fL Normal 82.0-98.0 [facility] Comment on above: Order Comment: No: D o not add to previous draw Performed By: #### 5 0103 #### [facility] [address] [facility] [place] [address], [facility] Monocytes (Bld) [#/Vol] 0.4 10*3/uL Normal 0.1-1.0 [facility] Comment on above: Order Comment: No: D o not add to previous draw Performed By: #### 5 0103 #### [facility] [address] [place] [address], [place] MONOS 6.2 % Normal 5.0-12.0 [facility] Comment on above: Order Comment: No: D o not add to previous draw Performed By: #### 5 0103 #### [facility] [address] [place] [address], [place] Neutrophils/100 WBC (Bld) 61.6 % Normal 40.0-72.0 [facility] Comment on above: Order Comment: No: D o not add to previous draw Performed By: #### 5 0103 #### [facility] [address] [place] [address], [place] Nucleated RBC/100 WBC (Bld) [Ratio] 0 % Normal 0-0 [facility] Comment on above: Order Comment: No: D o not add to previous draw Performed By: #### 5 0103 #### [facility] [address] [place] [address], [place] PLAT CNT 382 10*3/uL Normal 150-400 [facility] Comment on above: Order Comment: No: D o not add to previous draw Performed By: #### 5 0103 #### [facility] [address] [place] [address], [place] RBC (Bld) [#/Vol] 3.63 10*6/uL Low 3.80-5.00 [facility] Comment on above: Order Comment: No: D o not add to previous draw Performed By: #### 5 0103 #### [facility] [address] [place] [address], [place] WBC (Bld) [#/Vol] 6.45 10*3/uL Normal 4.00-10.60 [facility] Comment on above: Order Comment: No: D o not add to previous draw Performed By: #### 5 0103 #### [facility] [address] [place] [address], [facility] LIPASE BLOODon 08-13-2019 Lipase [Catalytic activity/Vol] 13 Units/L Normal 11-82 [facility] Comment on above: Performed By: #### 3 6901, 52802 #### [facility] [address] Vital Signs Date Time Vital Sign Value Performing Clinician Facility 05-11-2024 10:50-0400 Diastolic blood pressure 80 mm[Hg] [employer] Judi Youssef Work Phone: [facility] 05-11-2024 10:50-0400 Heart rate 67 /min [employer] Judi Youssef Work Phone: [facility] 05-11-2024 10:50-0400 Respiratory rate 16 /min [employer] Judi Mikael Work Phone: [facility] 05-11-2024 10:50-0400 SaO2% (BldA) [Mass fraction] 100 % [employer] Judi Mikael Work Phone: [facility] 05-11-2024 10:50-0400 Systolic blood pressure 130 mm[Hg] [employer] Judi Ugaldemer Work Phone: [facility] 05-11-2024 08:23-0400 Body height 170.18 cm [employer] Judijose manuel Ugaldemer Work Phone: [facility] 05-11-2024 08:23-0400 Body weight 81.64 kg [employer] Judi Ugaldemer Work Phone: [facility] 04-26-2024 08:27-0400 Body height 170.18 cm [facility] 04-26-2024 08:27-0400 Body mass index (BMI) [Ratio] 28.5 kg/m2 [facility] 04-26-2024 08:27-0400 Body weight 82.55 kg [facility] 04-26-2024 08:27-0400 Diastolic blood pressure 82 mm[Hg] [facility] 04-26-2024 08:27-0400 Heart rate 59 /min [facility] 04-26-2024 08:27-0400 Systolic blood pressure 132 mm[Hg] [facility] 02-16-2024 09:03-0400 Blood Pressure Location Yolanda Or[facility] 02-16-2024 09:03-0400 Body temperature 97.7 [degF] Yolanda Orzech [facility] 02-16-2024 09:03-0400 Diastolic blood pressure 84 mm[Hg] Yolanda Orzech [facility] 02-16-2024 09:03-0400 Heart rate 78 /min Yolanda Orzech [facility] 02-16-2024 09:03-0400 Systolic blood pressure 128 mm[Hg] Yolanda Orzech [facility] 07-22-2023 13:19-0500 Body height 170.[address] Work Phone: [facility] 07-22-2023 13:19-0500 Body weight 83.[address] Work Phone: [facility] 07-14-2023 11:40-0500 Diastolic blood pressure 95 mm[Hg] Marques Bradley MD Work Phone: [facility] 07-14-2023 11:40-0500 Heart rate 56 /min Marques Bradley MD Work Phone: [facility] 07-14-2023 11:40-0500 Respiratory rate 16 /min Marques Bradley MD Work Phone: [facility] 07-14-2023 11:40-0500 SaO2% (BldA) [Mass fraction] 97 % Marques Bradley MD Work Phone: [facility] 07-14-2023 11:40-0500 Systolic blood pressure 158 mm[Hg] Marques Bradley MD Work Phone: [facility] 07-14-2023 11:10-0500 Body temperature 97.2 [degF] Marques Bradley MD Work Phone: [facility] 07-14-2023 08:34-0500 Body height 170.2 cm Marques Bradley MD Work Phone: [facility] 07-14-2023 08:34-0500 Body weight 88 kg Marques Bradley MD Work Phone: [facility] 04-21-2023 09:30-0400 Body height 170.18 cm Renny Omalley Other [employer] Other 04-21-2023 09:30-0400 Body mass index (BMI) [Ratio] 31.21 kg/m2 Renny Omalley Other [employer] Other 04-21-2023 09:30-0400 Body weight 90.4 kg Renny Omalley Other [employer] Other 04-21-2023 09:30-0400 Diastolic blood pressure 78 mm[Hg] Renny Omalley Other [employer] Other 04-21-2023 09:30-0400 Systolic blood pressure 130 mm[Hg] Renny Omalley Other [employer] Other 03-23-2023 07:33-0400 Diastolic blood pressure 80 mm[Hg] DONI Youssef Work Phone: [facility] 03-23-2023 07:33-0400 Heart rate 81 /min [employer] Judi Ugaldemer Work Phone: [facility] 03-23-2023 07:33-0400 Respiratory rate 14 /min [employer] Judi Ugaldemer Work Phone: [facility] 03-23-2023 07:33-0400 SaO2% (BldA) [Mass fraction] 95 % [employer] Judi Ugaldemer Work Phone: [facility] 03-23-2023 07:33-0400 Systolic blood pressure 171 mm[Hg] [employer] Judi Youssef Work Phone: [facility] 03-23-2023 06:20-0400 Body height 170.18 cm [employer] Judi Youssef Work Phone: [facility] 03-23-2023 06:20-0400 Body temperature 97.4 [degF] [employer] Judi Youssef Work Phone: [facility] 03-23-2023 06:20-0400 Body weight 90 kg [employer] Judi Youssef Work Phone: [facility] 02-19-2023 00:53-0400 Body temperature 96.98 [degF] Kaylinn Dokken [facility] 02-19-2023 00:53-0400 Diastolic blood pressure 99 mm[Hg] Kaylinn Dokken [facility] 02-19-2023 00:53-0400 Heart rate 75 /min Kaylinn Dokken [facility] 02-19-2023 00:53-0400 Respiratory rate 16 /min Kaylinn Dokken [facility] 02-19-2023 00:53-0400 SaO2% (BldA) [Mass fraction] 98 % Kaylinn Dokken [facility] 02-19-2023 00:53-0400 Systolic blood pressure 153 mm[Hg] Zabrina Patton [facility] 02-15-2023 10:33-0400 Diastolic blood pressure 89 mm[Hg] [employer] Judi Mikael Work Phone: [facility] 02-15-2023 10:33-0400 SaO2% (BldA) [Mass fraction] 100 % [employer] Judi Mikael Work Phone: [facility] 02-15-2023 10:33-0400 Systolic blood pressure 149 mm[Hg] [employer] Judi Mikael Work Phone: [facility] 02-15-2023 10:00-0400 Heart rate 83 /min [employer] Judi Mikael Work Phone: [facility] 02-15-2023 10:00-0400 Respiratory rate 16 /min [employer] Judi Mikael Work Phone: [facility] 02-15-2023 08:06-0400 Body height 170.18 cm [employer] Judi Mikael Work Phone: [facility] 02-15-2023 08:06-0400 Body temperature 97.6 [degF] [employer] Judi Mikael Work Phone: [facility] 02-15-2023 08:06-0400 Body weight 89.2 kg [employer] Judi Mikael Work Phone: [facility] 10-26-2022 08:03-0500 Diastolic blood pressure 87 mm[Hg] [employer] Judi Mikael Work Phone: [facility] 10-26-2022 08:03-0500 Heart rate 70 /min [employer] Judi Mikael Work Phone: [facility] 10-26-2022 08:03-0500 Respiratory rate 18 /min [employer] Judi Mikael Work Phone: [facility] 10-26-2022 08:03-0500 SaO2% (BldA) [Mass fraction] 98 % [employer] Judi Youssef Work Phone: [facility] 10-26-2022 08:03-0500 Systolic blood pressure 161 mm[Hg] [employer] Judi Youssef Work Phone: [facility] 10-26-2022 06:17-0500 Body height 170.18 cm [employer] Judi Youssef Work Phone: [facility] 10-26-2022 06:17-0500 Body temperature 97.2 [degF] [employer] Judi Youssef Work Phone: [facility] 10-26-2022 06:17-0500 Body weight 88.9 kg [employer] Judi Youssef Work Phone: [facility] 07-22-2022 14:34-0500 Diastolic blood pressure 83 mm[Hg] Ospina SALAM [facility] 07-22-2022 14:34-0500 Mean blood pressure 101 mm[Hg] Ospina SALAM [facility] 07-22-2022 14:34-0500 Systolic blood pressure 136 mm[Hg] Ospina SALAM [facility] 07-22-2022 14:30-0500 Blood Pressure Location Ospina SALAM [facility] 07-22-2022 14:30-0500 Diastolic blood pressure 89 mm[Hg] Ospina SALAM [facility] 07-22-2022 14:30-0500 Heart rate 62 /min Ospina SALAM [facility] 07-22-2022 14:30-0500 Respiratory rate 16 /min Ospina SALAM [facility] 07-22-2022 14:30-0500 SaO2% (BldA) [Mass fraction] 98 % Anai SALAM [facility] 07-22-2022 14:30-0500 Systolic blood pressure 141 mm[Hg] Anai ROTHMANAM [facility] 04-14-2022 14:50-0400 Blood Pressure Location Moniquejuan luis ReddyJimmy [facility] 04-14-2022 14:50-0400 Body temperature 97.16 [degF] Monique Jimmy [facility] 04-14-2022 14:50-0400 Diastolic blood pressure 86 mm[Hg] Monique Jimmy [facility] 04-14-2022 14:50-0400 Heart rate 72 /min Moniquejuan luis ReddyJimmy [facility] 04-14-2022 14:50-0400 SaO2% (BldA) [Mass fraction] 97 % Moniquejuan luis ReddyJimmy [facility] 04-14-2022 14:50-0400 Systolic blood pressure 131 mm[Hg] Monique Jimmy [facility] 01-28-2022 13:36-0400 Blood Pressure Location Monique Jimmy [facility] 01-28-2022 13:36-0400 Body temperature 97.52 [degF] Monique Jimmy [facility] 01-28-2022 13:36-0400 Diastolic blood pressure 85 mm[Hg] Monique Marquez [facility] 01-28-2022 13:36-0400 Heart rate 73 /min Monique Marquez [facility] 01-28-2022 13:36-0400 SaO2% (BldA) [Mass fraction] 96 % Monique Marquez [facility] 01-28-2022 13:36-0400 Systolic blood pressure 122 mm[Hg] Monique Marquez [facility] 01-11-2022 10:15-0400 Blood Pressure Location Ospina SALAM [facility] 01-11-2022 10:15-0400 Diastolic blood pressure 106 mm[Hg] Ospina SALAM [facility] 01-11-2022 10:15-0400 Heart rate 70 /min Ospina SALAM [facility] 01-11-2022 10:15-0400 Respiratory rate 28 /min Ospina SALAM [facility] 01-11-2022 10:15-0400 SaO2% (BldA) [Mass fraction] 99 % Ospina SALAM [facility] 01-11-2022 10:15-0400 Systolic blood pressure 137 mm[Hg] Ospina SALAM [facility] 01-11-2022 10:05-0400 Blood Pressure Location Ospina SALAM [facility] 01-11-2022 10:05-0400 Diastolic blood pressure 74 mm[Hg] Ospina SALAM [facility] 01-11-2022 10:05-0400 Heart rate 67 /min Ospina SALAM [facility] 01-11-2022 10:05-0400 Respiratory rate 14 /min Ospina SALAM [facility] 01-11-2022 10:05-0400 SaO2% (BldA) [Mass fraction] 97 % Ospina SALAM [facility] 01-11-2022 10:05-0400 Systolic blood pressure 128 mm[Hg] Ospina SALAM [facility] 01-11-2022 10:00-0400 Blood Pressure Location Ospina SALAM [facility] 01-11-2022 10:00-0400 Diastolic blood pressure 79 mm[Hg] Ospina SALAM [facility] 01-11-2022 10:00-0400 Heart rate 66 /min Ospina SALAM [facility] 01-11-2022 10:00-0400 Respiratory rate 16 /min Ospina SALAM [facility] 01-11-2022 10:00-0400 SaO2% (BldA) [Mass fraction] 98 % Ospina SALAM [facility] 01-11-2022 10:00-0400 Systolic blood pressure 134 mm[Hg] Ospina SALAM [facility] 01-11-2022 09:50-0400 Body temperature 97.52 [degF] Ospina SALAM [facility] 01-11-2022 09:45-0400 Respiratory rate 15 /min Ospina SALAM [facility] 01-11-2022 09:18-0400 Body temperature 97.34 [degF] Ospina SALAM [facility] 01-11-2022 09:18-0400 Respiratory rate 20 /min Ospina SALAM [facility] Encounters Encounter Date Encounter Type Care Provider Facility Start: 06-07-2024 ambulatory Magnolia Terrell [facility] [place] Start: 05-14-2024 End: 05-14-2024 ambulatory [facility] Start: 05-11-2024 Non-patient / Non-visit [employer] Cesia Youssef Work Phone: [facility] Work Phone: Start: 05-11-2024 End: 05-11-2024 Admission to same day surgery center [employer] Judi Youssef Work Phone: [facility] Work Phone: Start: 05-11-2024 End: 05-11-2024 ambulatory [employer] Judi Youssef Work Phone: [facility] Work Phone: Start: 04-26-2024 End: 04-26-2024 ambulatory [facility] Work Phone: Start: 04-26-2024 End: 04-26-2024 Patient encounter procedure [facility] Work Phone: Start: 03-19-2024 End: 03-19-2024 ambulatory [facility] Start: 02-16-2024 End: 02-16-2024 ambulatory Yolanda Lou [facility] Start: 02-16-2024 End: 02-16-2024 Lab Drop off Yolanda X Dasha [facility] Start: 02-16-2024 End: 02-16-2024 ambulatory Yolanda X Orzech Facility:[facility] Start: 02-16-2024 End: 02-16-2024 Patient encounter procedure Yolanda X Orapryl [facility] Start: 02-15-2024 End: 02-15-2024 ambulatory [facility] Start: 12-01-2023 ambulatory [facility] Start: 08-25-2023 End: 08-25-[address] [facility] Facility:[facility] Start: 07-29-2023 Orders Only Evelyn Black RN Gen [facility] Surgery Comment on above: Gastroparesis (Prima ry Dx) Start: 07-22-2023 End: 07-22-2023 ambulatory MARQUES BRADLEY Facility:[facility] Start: 07-22-2023 Telephone encounter Evelyn Black RN General Surgery Start: 07-22-2023 End: 07-22-2023 Nutrition therapy Melissa Montalvo RD Work Phone: General Surgery Comment on above: Gastroparesis (Prima ry Dx); Malnutrition of moderate degree (HCC); Gastro-esophageal reflux disease without esophagitis; Overweight (BMI 25.0-29.9); Dietary counseling and surveillance Start: 07-22-2023 End: 07-22-2023 Telemedicine consultation with patient Melissa Montalvo RD Work Phone: [facility] Start: 07-14-2023 End: 07-14-2023 ambulatory MARQUES BRADLEY Facility:[facility] Start: 07-14-2023 End: 07-14-2023 Subsequent hospital visit by physician Marques Bradley MD Work Phone: Gastroenterology Comment on above: Dysphagia, unspecifi ed type [R13.10] Start: 07-13-2023 End: 07-13-2023 ambulatory MARQUESWAQAS BRADLEY Facility:[facility] Start: 06-06-2023 End: 06-06-2023 ambulatory Samuel Estrella [facility] Start: 05-27-2023 Telephone encounter Evelyn Black RN General Surgery Comment on above: Results Start: 05-26-2023 End: 05-26-2023 ambulatory MARQUES BRADLEY Facility:[facility] Start: 05-25-2023 End: 05-25-2023 ambulatory JOEL PANCHAL [facility] Facility:[facility] Start: 05-25-2023 End: 05-25-2023 Nursing evaluation of patient and report Nurse Gi [facility] 2 Work Phone: Gastroenterology Comment on above: Nausea Start: 05-16-2023 Orders Only Evelyn Black RN Gen eral Surgery Comment on above: Nausea (Primary Dx); Dysphagia, unspecified type Start: 05-06-2023 End: 05-07-2023 ambulatory MARQUES Jorge QUINNMADAN Facility:[facility] Start: 05-02-2023 Telephone encounter Evelyn Black RN General Surgery Start: 04-26-2023 Telephone encounter Evelyn Black RN General Surgery Start: 04-21-2023 End: 04-21-2023 ambulatory Renny Omalley Other [employer] Other Start: 04-21-2023 Office outpatient vi sit 15 minutes Renny TOUSSAINT [facility] Start: 04-18-2023 Telephone encounter Evelyn Black RN General Surgery Comment on above: Clinical Support Associate - O ther Start: 04-07-2023 Telephone encounter Guillermo Martinez DO Work Phone: Gastroenterology Comment on above: Appointment Start: 04-05-2023 End: 04-05-2023 ambulatory Imad Asaad Other [employer] Other Start: 04-05-2023 Telephone encounter Imad Asaad [facility] Start: 03-29-2023 ambulatory Facility:[facility] Start: 03-26-2023 ambulatory Facility:[id number] Start: 03-26-2023 ambulatory Facility:[id number] Start: 03-24-2023 End: 03-24-2023 ambulatory Imad Asaad Other [employer] Other Start: 03-24-2023 Telephone encounter Imad Asaad [facility] Start: 03-23-2023 End: 03-23-2023 Emergency department patient visit [employer] Judi Youssef Work Phone: [facility] Work Phone: Start: 03-22-2023 End: 03-22-2023 ambulatory Imad Asaad Other [employer] Other Start: 03-22-2023 Telephone encounter Imad Asaad [facility] Start: 03-09-2023 End: 03-09-2023 ambulatory Imad Asaad Other [employer] Other Start: 03-09-2023 Telephone encounter Imad Asaad [facility] Start: 03-01-2023 End: 03-01-2023 ambulatory Imad Asaad Other [employer] Other Start: 03-01-2023 Telephone encounter Imad Asaad [facility] Start: 02-19-2023 End: 02-19-2023 Emergency department patient visit Zabrina Patton [facility] Start: 02-15-2023 End: 02-15-2023 Emergency department patient visit [employer] Judi Youssef Work Phone: [facility] Work Phone: Start: 11-30-2022 End: 12-01-2022 ambulatory JUDI YOUSSEF Facility:[facility] Start: 11-27-2022 End: 11-28-2022 ambulatory JUDI YOUSSEF Facility:[facility] Start: 11-26-2022 End: 11-26-2022 ambulatory Imad Asaad Other [employer] Other Start: 11-26-2022 Telephone encounter Imad Asaad [facility] Start: 11-04-2022 End: 11-04-2022 Admission to same day surgery center [employer] Judi Mikael Work Phone: [facility] [place] Work Phone: Start: 11-04-2022 End: 11-04-2022 ambulatory [employer] Judi Franco Mikael Work Phone: [facility] Work Phone: Start: 11-01-2022 End: 11-02-2022 ambulatory JUDI YOUSSEF Facility:[facility] Start: 10-26-2022 End: 10-26-2022 Emergency department patient visit [employer] Judi Youssef Work Phone: [facility] Work Phone: Start: 09-21-2022 End: 09-21-2022 ambulatory JUDI YOUSSEF Facility:[facility] Start: 09-18-2022 End: 09-18-2022 ambulatory BALTAZAR GEORGES . Facility:[facility] Start: 09-14-2022 End: 09-14-2022 ambulatory EUN WILSON . Facility:[facility] Start: 09-07-2022 End: 09-07-2022 ambulatory Imad Asaad Other [facility] [employer] Other Start: 09-07-2022 Telephone encounter Imad Asaad [facility] Start: 09-06-2022 End: 09-07-2022 ambulatory JUDI YOUSSEF Facility:[facility] Start: 08-20-2022 End: 08-20-2022 ambulatory BALTAZAR GEORGES . Facility:[facility] Start: 08-17-2022 End: 08-18-2022 ambulatory JUDI YOUSSEF Facility:[facility] Start: 08-11-2022 End: 08-12-2022 ambulatory JUDI YOUSSEF Facility:[facility] Start: 08-08-2022 End: 08-08-2022 ambulatory KATHRIN VANCE Facility:[facility] Start: 07-22-2022 End: 07-22-2022 Patient encounter procedure Anai MERARY [facility] Start: 07-21-2022 End: 07-21-[address] NORA WINN Facility:[facility] Start: 07-15-2022 ambulatory JUDI YOUSSEF Facility: [facility] Start: 07-12-2022 Encounter for genera l adult medical examination without abnormal findings JUDIJOSE MANUEL [facility]GALDE[facility] Start: 07-08-2022 End: 07-09-2022 ambulatory JUDI YOUSSEF Facility:[facility] Start: 07-08-2022 End: 07-09-2022 Encounter for general adult medical examination without abnormal findings JUDI YOUSSEF Facility:[facility] Start: 07-05-2022 End: 07-05-[address] JOHNATHAN RUDOLPH Facility:[facility] Start: 06-07-2022 End: 06-07-2022 ambulatory BALTAZAR GEORGES . Facility:[facility] Start: 06-06-2022 End: 06-06-2022 ambulatory BALTAZAR GEOGRES . Facility:[facility] Start: 06-04-2022 End: 06-04-[address] NORA WINN Facility:[facility] Start: 04-29-2022 End: 04-29-2022 Lab Drop off Anai MERARY [facility] Start: 04-14-2022 End: 04-14-2022 Patient encounter procedure Monique Marquez [facility] Start: 03-27-2022 End: 03-30-2022 Evaluation and management of inpatient SHAIKH Juan Luis DAVIS Facility:[facility] Start: 03-01-2022 End: 03-01-2022 Patient encounter procedure Monique Marquez [facility] Start: 02-02-2022 End: 02-02-2022 ambulatory BALTAZAR GEORGES . Facility:[facility] Start: 01-28-2022 End: 01-28-2022 Patient encounter procedure Monique Marquez [facility] Start: 01-11-2022 End: 01-11-2022 Patient encounter procedure Anai FORBES [facility] Start: 12-24-2021 End: 12-24-2021 Patient encounter procedure JHOANA MELGOZA [facility] Start: 08-13-2019 End: 08-16-2019 Evaluation and management of inpatient LEONA MORTENSEN Facility:[facility] Procedures Date Procedure Procedure Detail Performing Clinician Start: 05-11-2024 Esophagogastroduodenoscopy [employer] Judi morales Work Phone: Start: 07-14-2023 Esophagoscp rig transoral hypopharynx crv esoph Evelyn Black RN Start: 05-25-2023 Esophageal motility study w/interp&rpt Evelyn Black RN Start: 03-23-2023 Computed tomography of abdomen and pelvis with contrast [employer] Judi Youssef Work Phone: Start: 02-15-2023 Computed tomography of abdomen and pelvis with contrast [employer] Judijose manuel Yosusef Work Phone: Start: 11-04-2022 CT of small intestine [employer] Judi Mikael Work Phone: Start: 10-26-2022 Computed tomography of abdomen and pelvis with contrast [employer] Judi Mikael Work Phone: Start: 01-11-2022 Esophagogastroduodenoscopy Ospina LORNAAM Start: 05-13-2021 Esophagogastroduodenoscopy JHOANA Vázquez Start: 09-30-2020 Esophagogastroduodenoscopy JHOANA Vázquez Start: 03-13-2020 Colonoscopy JHOANA MELGOZA Start: 01-30-2020 Esophagogastroduodenoscopy JHOANA Vázquez Start: 08-15-2019 FLUOROSCOPY OF UPPER GI AND SMALL BOWEL USING OTHER CONTRAST ORESTES CONDON Start: 05-17-2019 Colonoscopy JHOANA MELGOZA Start: 05-17-2019 Esophagogastroduodenoscopy JHOANA Vázquez Start: 03-02-2019 Hernia surgical mesh (physical object) JHOANA MELGOZA Comment on above: Dr. Mortensen in [place]. Hernia repair JHOANA MELGOZA Hysterectomy JHOANA MELGOZA Plan of Treatment Date Care Activity Detail Author Start: 05-11-[address] [facility] Start: 05-06-2023 Covid-19 Vaccine ( season) Covid-19 Vaccine ( season) [facility] Start: 05-06-2023 Influenza vaccination C [facility] Start: 09-05-2022 DEPRESSION ASSESSMENT DEPRESSION ASS ESSMENT [facility] Start: 01-01-2022 COVID-19 VACCINE (4 - Pfizer series) COVID-19 VACCINE (4 - Pfizer series) [facility] Start: 2020 SHINGRIX VACCINE (1 of 2) SHINGRIX VACCINE (1 of 2) [facility] Start: 2015 COLOGUARD (FIT-DNA) COLOGUARD (FIT-D NA) [facility] Start: 2015 Colonoscopy COLONOSCOPY [facility] Start: 2015 COLORECTAL CANCER SCREENING COLORECTAL CANCER SCREENING [facility] Start: [address] COLONOGRAPHY [facility] Start: 2015 DIABETES SCREEN DIABETES SCREEN [facility] Start: 2015 Diabetes Screening Diabetes Screenin g [facility] Start: 2015 FECAL OCCULT BLOOD FECAL OCCULT BLOO D [facility] Start: 2015 Lipid 1996 panel - S cristine or Plasma Lipid Screening [facility] Start: 2015 LIPID SCREEN LIPID SCREEN [facility] Start: 2015 SIGMOIDOSCOPY SIGMOIDOSCOPY [facility] Start: 2010 Mammography [facility] Start: 2000 HPV TESTING HPV TESTING [facility] Start: 1991 PAP TESTING PAP TESTING [facility] Start: 1989 Urine microalbumin profile [facility] Start: 1988 HEPATITIS C SCREENING HEPATITIS C SC REENING [facility] Start: 1988 HIV SCREENING HIV SCREENING [facility] Start: 1970 COVID-19 VACCINE (#1) COVID-19 VACCI NE (#1) [facility] Start: 1970 HEPATITIS B (1 of 3 - 3-dose series) HEPATITIS B (1 of 3 - 3-dose series) [facility] Start: 1970 Hepatitis B Vaccine (1 of 3 - 3-dose series) Hepatitis B Vaccine (1 of 3 - 3-dose series) [facility] End: 07-29-2024 EGD - THERAPEUTIC, EUS, OR TUBE INTERVENTIONS EGD - THERAPEUTIC, EUS, OR TUBE INTERVENTIONS Endoscopy Routine Gastroparesis 1 Occurrences starting 07/29/2023 until 07/29/2024 [facility] Work Phone: Comment on above: 1 Occurrences starti ng 07/29/2023 until 07/29/2024 End: 05-16-2024 Esophageal motility study w/interp&rpt MANOMETRY ESOPHAGEAL Endoscopy Routine Nausea 1 Occurrences starting 05/16/2023 until 05/16/2024 [facility] Work Phone: Comment on above: 1 Occurrences starti ng 05/16/2023 until 05/16/2024 Esophageal motility study w/interp&rpt MANOMETRY ESOPHAGEAL Endoscopy Routine Nausea 05/25/2023 [facility] Work Phone: End: 06-14-2024 Gastric emptying imaging study NM GASTRIC EMPTYING SOLID Radiology Routine Nausea 1 Occurrences starting 05/16/2023 until 06/14/2024 [facility] Work Phone: Comment on above: 1 Occurrences starti ng 05/16/2023 until 06/14/[address] [facility] Work Phone: Patient referral [facility] Work Phone: SURGICAL PATHOLOGY [facility] Work Phone: Comment on above: Release Upon Aliein g for 1 Occurrences starting 07/14/2023, 1 completed [facility] Immunizations Immunization Date Immunization Notes Care Provider Jamal jackson 06-15-2022 SARS-CoV-2 (COVID-19 ) [id number] Yolanda Myronapryl [facility] 06-09-2022 influenza virus vaccine, unspecified formulation Nurse 2 Work Phone: [facility] 03-18-2022 SARS-CoV-2 mRNA ([id number] jett) vaccine Ospina SALAM [facility] 11-06-2021 SARS-CoV-2 (COVID-19 ) mRNA BNT-162b2 vax Ospina SALAM [facility] 05-06-2021 influenza virus vaccine, unspecified formulation JHOANA MELGOZA [facility] 02-26-2021 SARS-CoV-2 (COVID-19 ) mRNA BNT-162b2 vax JHOANA MELGOZA [facility] 02-05-2021 SARS-CoV-2 (COVID-19 ) mRNA BNT-162b2 vax Ospina SALAM [facility] Comment on above: Result Comment: 2021: [id number] NEGATED: Highlighted row has not occurred!04-14-2022 influenza virus vaccine, unspecified formulation Monique Marquez [facility] Payers Date Payer Category Payer Unknown [employer] PPO [id number] 2022-Present [phone] [address] [place] [address] PPO [id number] 2018 Private Health Insurance [id number] 2018 Private Health Insurance [facility] CHOICE PLUS [id number] 2018-Present [phone] [address] [place] [address] HMO [id number] .7.3.761029.315 1970 Unknown [id number] 2.16.840.1.928440.3.579.2 .647 1970 Unknown [id number] 2.16.840.1.367880.3.579.2 .593 1970 Unknown [id number] 2.16.840.1.014327.3.579.2 .593 1970 Unknown [id number] 2.16.840.1.789102.3.579.2 .593 1970 Unknown [id number] 2.16.840.1.252983.3.579.2 .593 1970 Unknown [id number] 2.16.840.1.177605.3.579.2 .593 1970 Unknown [id number] 2.16.840.1.379507.3.579.2 .593 1970 Unknown [id number] 2.16.840.1.721975.3.579.2 .593 1970 Unknown [id number] 2.16.840.1.782206.3.579.2 .593 1970 Unknown [id number] 2.16.840.1.876453.3.579.2 .593 1970 Unknown [id number] 2.16.840.1.779088.3.579.2 .593 1970 Unknown [id number] 2.16.840.1.479605.3.579.2 .593 1970 Unknown [id number] 2.16.840.1.603533.3.579.2 .593 1970 Unknown [id number] 2.16.840.1.042875.3.579.2 .593 1970 Unknown [id number] 2.16.840.1.773718.3.579.2 .593 1970 Unknown [id number] 2.16.840.1.405114.3.579.2 .593 1970 Unknown [id number] 2.16.840.1.311715.3.579.2 .593 1970 Unknown [id number] 2.16.840.1.679127.3.579.2 .593 1970 Unknown [id number] 2.16.840.1.793783.3.579.2 .593 1970 Unknown [id number] 2.16.840.1.009807.3.579.2 .593 1970 Unknown [id number] 2.16.840.1.757843.3.579.2 .593 1970 Unknown [id number] 2.16.840.1.397949.3.579.2 .356 1970 Unknown [id number] 2.16.840.1.715168.3.579.2 .356 1970 Unknown [id number] 2.16.840.1.163074.3.579.2 .1286 1970 Unknown [id number] 2.16.840.1.709596.3.579.2 .1286 1970 Unknown [id number] 2.16.840.1.557906.3.579.2 .1286 1970 Unknown [id number] 2.16.840.1.264164.3.579.2 .1286 1970 Unknown [id number] 2.16.840.1.056443.3.579.2 .727 1970 Unknown [id number] 2.16.840.1.807266.3.579.2 .727 1970 Unknown [id number] 2.16.840.1.370677.3.579.2 .727 1970 Unknown [id number] 2.16.840.1.578090.3.579.2 .727 1959 Medicaid [id number] 1959 Self-pay [id number] 1959 Unknown [id number] 1959 Unknown [id number] Medicare Medicare [id number] Medicare Medicare [id number] Unknown [id number] 2.16.840.1.394151.3.579.2 .531 Worker's Compensation [employer] Ins Misc [id number] Social History Date Type Detail Facility Start: 12-03-2021 End: 05-11-2024 Tobacco smoking status Ex-smoker (finding) [facility] Start: 08-12-2020 End: 05-06-2023 Sex Assigned At Female [facility] Tobacco smoking status Never [facility] Start: 1970 Sex Assigned At Female [facility] End: 09-05-2011 History of tobacco use Current smoker [facility] Work Phone: End: 09-05-2011 History of tobacco use Cigarette Smoker [facility] Work Phone: Start: 04-28-2018 End: 05-06-2023 Tobacco use and exposure Smokeless tobacco non-user [facility] Work Phone: Start: 04-28-2018 End: 05-06-2023 Alcohol intake Current drinker of alcohol (finding) [facility] Start: 08-12-2020 End: 05-06-2023 History of Social function [facility] Start: 04-28-2018 End: 05-06-2023 Tobacco Comment still smokes [facility] Start: 04-28-2018 Alcohol Comment social [facility] Start: 1970 Sex Assigned At Not on file [facility] Start: 07-14-2023 Alcohol intake Ex-drinker (finding) [facility] Goals Date Patient Goal Desired Activity /State Functional Status Date Assessment Result Facility 02-16-2024 Functional Status N/A [facility] [place] 02-19-2023 Functional Status N/A [facility] 07-22-2022 Functional Status N/A [facility] 04-14-2022 Functional Status N/A [facility] Clinical Notes 12-02-2021 to 05-14-2024 Note Date & Type Note Facility 05-14-2024 Note [facility] Note Reason for cardiology visit: Patient here for follow up echo and PFT's. Chief Complaint: Palpitation HPI: 05/14/2024 The patient is here today for follow-up visit. She states that she has been doing better. Her blood pressure at home has been better and most of the time in the range of 120/60-70. She has couple measurements which were little high. Also she states that her palpitation and shortness of breath are much better. She denies orthopnea or paroxysmal nocturnal dyspnea or dizziness or legs edema or leg discomfort on exertion. She denies any chest discomfort. 03/19/2024 Constantino Cardoso is a 53 y.o. female [...] past medical history of Abnormal ECG, Arrhythmia, Hypertension, and NSVT (nonsustained ventricular tachycardia) (CMS/FORMERLY [facility]). Surgical History She has a past surgical [...] vitamin D3, 50 mcg (2,000 unit) capsule, in the morning., Disp: , Rfl: lisinopril 10 mg tablet, Take 1 tablet (10 mg) by mouth in the morning., Disp: 30 tablet, Rfl: 11 metoprolol succinate XL (Toprol-XL) 50 mg 24 hr tablet, Take 1 tablet (50 mg) by mouth in the morning. Do not crush or chew., Disp: 30 tablet, Rfl: 11 pantoprazole (ProtoNix) 40 mg EC tablet, Take 40 mg by mouth before breakfast., Disp: , Rfl: sertraline (Zoloft) 50 mg tablet, Take 50 mg by mouth in the morning., Disp: , Rfl: Last Recorded Vitals Visit Vitals BP 130/88 (BP Location: Right arm, Patient Position: Sitting) Pulse 71 Ht 1.702 m (5' 7 ) Wt 83.9 kg (185 lb) SpO2 98% BMI 28.98 kg/m??? Smoking Status Former BSA 1.99 m??? Physical Examination: GENERAL: alert and oriented x3, well developed, in no acute distress. HEAD: atraumatic, normocephalic. EYES: TOMI, EOMI. NECK: trachea midline, no JVD present, no carotid bruits present. CARDIAC: S1, S2 present. RRR. No murmur, rubs, or gallops. RESPIRATORY: CTAB, no increased effort of breathing, no rales, rhonchi, or wheezing. ABDOMEN: soft, nontender, nondistended. EXTREMITIES: no lower extremity edema. No rash/skin discoloration present. NEURO: strength/sensation equal and symmetric in bilateral upper and lower extremities. PSYCH: appropriate mood, affect, and judgement. Labs: Labs 04/13/2024 white blood count 7.7, hemoglobin 11.9, hematocrit 37, platelets Sodium 141, potassium 3.5, BUN 14, creatinine 0.87, GFR above 60, glucose 106, calcium 9.3 Total bilirubin 0.5, AST 19, ALT 28, alk phos 143, 01/02/2024, HbA1c 5.8% Triglyceride 80, cholesterol 194, LDL 102, HDL 76 Vitamin D7.5 TSH 1.6 CBC: Lab Results Component Value Date WBC [...] 04/30/2019 ALBUMIN 3.8 04/30/2019 PROT 6.3 04/30/2019 Last Images: EKG 11/27/2023 showed sinus bradycardia, otherwise normal EKG EKG 06/06/2023 showed normal sinus rhythm, normal EKG 5-day Holter monitor 01/06/2024 Echo 03/13/2024 Pulmonary function test 03/13/2024 Assessment and Plan: Palpitations, Holter monitor showed only sinus tachycardia could represent POTS and 1 event of ventricular run recorded at 12:53 AM which I think is due to vasovagal r (more content not included)... [facility] 05-11-2024 Procedure note [facility] 04-26-2024 Evaluation note Authored April 26, 2024 9:26am 53-year-old female with hist ory of hiatal hernia s/p hiatal hernia repair ([place] )referred to the GI clinic for evaluation of recurrent episodes of bowel obstruction. Patient has been having recurrent episodes of partial bowel obstruction which usually resolve spontaneously with conservative management. Previous colonoscopies by Dr. Forbes were unremarkable as per patient. Constipation has been responsive to various bowel regimen. Patient reports recurrent dysphagia, patient states that she required EGD with dilation before Multiple previous CTs including CT enterography were unremarkable. - Will arrange for EGD - Patient was recommended to take tablespoon of Metamucil once daily if needed, avoid dehydration, Can add Miralax 17gm PO Qday and titrate up to twice or three times daily if needed. [facility] Work Phone: [phone] 698-579207-15-2024 [facility] Reason for cardiology [...] think it is due to vasovagal reaction going to junctional rhythm resulting in ventricular [...] on current echo, she has mild mitral regurgitation Hypertension, systolic blood pressure appears to be relatively well-controlled on Toprol-XL, diastolic blood pressure still elevated Sleep apnea, has been back on CPAP Overweight, BMI 28 kg/m???, she lost about 40 to 50 pounds due to hiatal hernia and acid (more content not included)...[facility] 02-16-2024 Evaluation + Plan note Diagnostic Tests Pending * Urine Culture 02/16/24 [facility]06-12-[facility] Reason for cardiology [...] valve prolapse, and NSVT (nonsustained ventricular tachycardia) (CMS/FORMERLY [facility]). Surgical History She has a past surgical [...] 04/30/2019 PROT 6.3 08/ (more content not included)...[facility] 08-25-2023 NoteHNO ID: [id number] Author: Ellis Mayberry DO Service: ? Author [...] Successful intubation technique: video laryngoscopy Devices used: [employer] Endotracheal tube insertion site: oral Blade: Jake Blade size: #3 ETT size (mm): 7.0 Measured from: lips Measurement (cm): 22 Placement verified by: chest auscultation and capnometry Cormack-Lehane Classification: grade I - full view of glottis Number of attempts at approach: 1 Airway not difficult SIGNATURE: Ellis Mayberry DO PATIENT NAME: Constantino Cardoso DATE: August 25, 2023 TIME: 2:59 PM [facility]N: [id number] Patient Name: Constantino Cardoso Procedure Date: 08/25/2023 2:38 PM Date of : 1970 Admit Type: Outpatient Age: 53 Gender: Female Note Status: Finalized Attending MD: Marques Bradley MD, [id number] Procedure: Upper GI endoscopy Indications: Gastroparesis- for [...] the patient. Procedure Code(s): --- Professional --- 99382 Diagnosis Code(s): --- Professional --- K44.9 Z98.890 CPT copyright 2020 [employer]. All rights reserved. Attending Participation: I personally performed the entire procedure. Scope In: 2:59:10 PM Scope Out: 3:37:20 PM MD Marques Rainey MD 08/25/2023 3:41:00 PM This report has been signed electronically by Marques Bradley MD Number of Addenda: 0 Note Initiated On: 08/25/2023 2:38 [facility]11-24-2023 Note HNO ID: [id number] Author: Evelyn Black RN Service: ? Author Type: Registered Nurse Type: Progress Notes Filed: 07/29/2023 11:18 AM Note Text: [facility]11-24-2023 History of Present illness Narrative* Evelyn Black RN - 07/29/2023 11:17 AM EST e documented [facility] this encounterM[facility]-17-[facility]23 Instructions* Patient Instructions* Melissa Montalvo RD - 07/22/2023 4:04 PM [...] High Protein, Atkins, Boost Glucose Control, Owyn, [place] Breakfast Essentials Light Start mixed with Fairlife fat free or 1% milk. -Check www.bariatricfusion.com or www.[employer].travelmob for additional options. Take small bites, eat slowly, chew food well, and always eat protein first. Separate eating and drinking by 30 min before and after. Aim for >64 oz water/day. Take small sips and avoid straws. Liquids should be sugar-free, no calories, no carbonation, no caffeine. Protein juarez (mhiqcet6j, Isopure, Gatorade protein), electrolyte drinks (Gatorade or Powerade zero, sugar free liquid IV or Drip Drop), sugar free jello and sugarfree popsicles are also acceptable. Nutrition Monitoring & Evaluation: increase PO intake >75% of estimated needs, weight check and patient update Need for Follow up: based on surgery status documented in this encounterMari[facility]11-17-2023 NoteHNO ID: [id number] Author: Melissa Montalvo RD Service: ? Author Type: Registered Dietitian Type: Progress Notes Filed: 07/22/2023 4:06 PM Note Text: [facility] Nutrition Therapy: Virtual Consult - Initial Assessment I have communicated my name and active licensure. The patient?s identity and physical location were verified at the time of this visit. Either the patient or their legal agency service representative has been informed of the [...] High Protein, Atkins, Boost Glucose Control, Owyn, [place] Breakfast Essentials Light Start mixed with Fairlife fat free or 1% milk. -Check www.bariatricfusion.com or www.[employer].travelmob for additional options. Take small bites, eat slowly, chew food well, and always eat protein first. Separate eating and drinking by 30 min before and after. Aim for >64 oz water/day. Take small sips and avoid straws. Liquids should be sugar-free, no calories, no carbonation, no caffeine. 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 [place] body weight: 159 lbs. 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 Recommendation was a GPOEM. Will consult with surgeon next week regarding next POC for pt. Pt VU. documented in this encounterM[facility]11-17-2023 History of Present illness Narrative* KatiaMelissa, RD - 07/22/2023 1:15 PM EST [facility] Nutrition Therapy: Virtual Consult - Initial Assessment I have communicated my name and active licensure. The patient s identity and physical location wereverified at the time of this visit. Either the patient or their legal agency service representative has been informed of the risks and benefits of -- and alternatives to -- treatment through a remote evaluation andconsents to proceed with the evaluation remotely. Nutrition [...] High Protein, Atkins, Boost Glucose Control, Owyn, [place] Breakfast Essentials Light Start mixed with Fairlife [...] calories, no carbonation, no caffeine. Protein juarez ([id number], Isopure, Gatorade protein), electrolyte drinks (Gatorade or Powerade zero, sugar free liquid IV or Drip Drop), sugar free jello and sugarfree popsicles are also acceptable. Nutrition Monitoring & [...] dysphagia, abdominal cramping, n/v with PO intake. Previousdiet attempts include n/a. Weight history significant for adult onset weight gain (maintains pjdyam192 lbs, highest 220 lbs in 2018). Greatest motivation for surgery includes relief of pain, health,and QOL. Diet recall indicates inconsistent intake with only 1 small meal and occasional snack. Patient is unable to tolerate most foods and complains of abdominal pain and diarrhea with PO intake. Foods are soft and low fiber with inadequate intake of protein. Patient would benefit from additional high protein shakes or snacks to help meet protein/energy needs. Fluid intake includes sufficient water and r egularly consumption of SSB and coffee. 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 [place] body weight: 159 lbs. 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 Procedure Code(s): --- Professional --- 37138 Diagnosis Code(s): --- Professional --- K44.9 K31.89 Z98.890 R10.13 CPT copyright 2020 [employer]. All rights reserved. Attending Participation: I personally performed the entire procedure. Scope In: 10:40:19 AM Scope Out: 10:50:37 AM MD Marques Rainey MD 07/14/2023 10:53:09 AM This report has been signed electronically by Marques Bradley MD Number of Addenda: 0 Note Initiated On: 07/14/2023 10:24 [facility]11-09-2023 Nurse Note* Mónica Spaulding RN - 07/14/2023 11:21 AM EST 1121: Dr. Mehrdad Carter paged : Patient Constantino Cardoso in post bed 10: Complaining of 10/10 abdominal pain (gas), mild nausea. Any further orders? Thanks! Mari Spaulding RN BSN * Mónica Spaulding RN - 07/14/2023 11:10 AM EST AMBULATORY PATIENT EDUCATION NOTE TOPIC: GI PROCEDURES: [...] / FAMILY RESPONSE: Verbalizes understanding of: WORSENING CONDITION- Signs and symptoms of aworsening condition that warrant a call to the physician FOLLOW-UP PLAN: Patient instructed to call with any further issues Recommend - Recommend continued instruction and follow up as directed Contact information given. SUPPLEMENTAL MATERIAL: Procedure Discharge Instructions REFERRAL (RECOMMENDATION): None Electronically Signed By: Mónica Spaulding RN BSN * Candace Jaramillo RN - 07/14/2023 8:33 AM EST PRE OP LEARNING ASSESSMENT PROCEDURE/SURGERY: GI PROCEDURES: [...] RN In Department: GASTROENTEROLOGY documented in this encounterMari[facility]11-08-2023 NoteHNO ID: [id number] Author: Brennen Shaw, PhD Service: ? Author Type: Physician Type: Progress Notes Filed: 07/19/2023 10:07 AM Note Text: [facility] EVALUATION DATE OF SERVICE: July 13, 2023 TIME OF SERVICE: 2:10 PM-3:29 PM COST CENTER: [facility] CPT CODE: - 68050 Brief Emotional/Behavioral Assessment with scoring/documentation - [id number] Virtual Psych Diagnostic Eval BILLING CODE: ENDO PSYL MAIN 17326/Marco DATE OF FIRST SERVICE THIS CYCLE: July 13, 2023 SESSION #: 1 BMI Surgical Pathway Visit type: Bariatric Surgeon Visit I have communicated my name and active licensure. The patient's identity and physical location were verified at the time of this visit. Either the patient or their legal agency service representative has been informed of the risks and benefits of -- and alternatives to -- treatment through a remote evaluation and consents to proceed with the evaluation remotely. Zoom for [facility] IDENTIFYING INFORMATION: Ms. Constantino Cardoso is [...] other people who have undergone the procedure (fci Specific areas of understanding that should be [...] during the binge episod (more content not included)...[facility]09-22-2023 Miscellaneous Notes* Telephone Encounter - Evelyn Black RN - 05/27/2023 9:42 AM EDT BMI SPECIALTY CARE COORDINATION TELEPHONE ENCOUNTER Pt contacted today regarding testing ordered when she had a consult with Dr Bradley. Manometry was normal and her GES was severely delayed. Reviewed results and will discuss with if POP is the next plan of care. Will update pt. Pt agreed with plan. documented in this encounterMarietta [facility] Clinic09-21-2023 NoteHNO ID: [id number] Author: Nabil Bell RT(R) Service: Nuclear Medicine [...] 715 PATIENT DISCHARGED TO: Ambulatory patient, left [place] department area. A Diagnostic radioactive procedure has taken place, with no further precautions necessary other than routine body substance precautions. More information regarding radiation safety can be found using this link: [email or web address] SIGNATURE: RT Charmaine(R) PATIENT NAME: Constantino Cardoso DATE: May 26, 2023 TIME: 7:17 AM PAGER/CONTACT #:[facility]09-20-2023 NoteHNO ID: [id number] Author: Pedro Gonzalez LPN Service: ? Author Type: LICENSED NURSE Type: Progress Notes Filed: 05/25/2023 4:15 PM Note Text: Name: Constantino Cardoso PSYCHIATRIC#: [id number] Date: 05/25/2023 ESOPHAGEAL MANOMETRY TEST Indication: Nausea [...] The patient tolerated the test without difficulty. .[facility] History of Present illness Narrative* Pedro Gonzalez LPN - 05/25/2023 3:55 PM EDT Name: Constantino Cardoso PSYCHIATRIC#: [id number] Date: 05/25/2023 ESOPHAGEAL MANOMETRY TEST Indication: Nausea [...] difficulty. .Pedro Gonzalez LPN documented in this encounterMarietta [facility] Clinic09-11-2023 Miscellaneous Notes* Telephone Encounter - Evelyn Black RN - 05/16/2023 12:00 PM EDT BMI SPECIALTY CARE COORDINATION TELEPHONE ENCOUNTER Pt. [...] after a gastric bypass. documented in this encounterMarietta [facility] Clinic09-01-2023 NoteHNO ID: [id number] Author: Marques Bradley MD Service: ? Author [...] for internal providers or letter via the [employer] Postal Service for external providers. Chief Complaint: [...] Marques Bradley MD Date: 05/12/2023 Time: 8:15 [facility]08-28-2023 Miscellaneous Notes* Telephone Encounter - Evelyn Black RN - 05/02/2023 9:12 AM EDT BMI SPECIALTY CARE COORDINATION TELEPHONE ENCOUNTER Chief complaint & duration dysphagia. Type of procedure: hernia repair hiatal with Dr. MORTENSEN in [place] February of 2019. Sending OP notes Nursing assessment (subjective/objective) . pain in chest area and getting worse Went to [facility] ED March 2023 who told her she needed a stent in her heart..but her c/o were difficulty swallowing and sent pt home and referred her to [facility] and was there in the hospital for [...] appt after records obtained documented in this encounterMari[facility]08-22-2023 Miscellaneous Notes* Telephone Encounter - Evelyn Black RN - 04/26/2023 2:00 PM EDT [facility] SPECIALTY CARE COORDINATION TELEPHONE ENCOUNTER Second attempt to contact this pt. Pt has upcoming information, and unable to complete any chart prep, history, symptoms, testing etc. LVM and call back number. documented in this encounterMarietta [facility] Clinic08-17-2023 Evaluation note* Encounter Date Diagnosis Assessment Notes Treatment Notes Treatment Clinical Notes Apr, Esophageal dysmotility (ICD-10 - K22.4) Apr, Esophageal spasm (ICD-10 - K22.4) Apr, Nausea & vomiting (ICD-10 - R11.2) Ashleynet reports that she still has nausea but no vomiting Patient reports that she is to see Dr. Strong [facility] Patient is to start dicyclomine 20 mg 4 times daily sent to [facility] today RTO 6 weeks Apr, Dysphagia (ICD-10 - R13.10) [employer] Other 08-14-2023 Miscellaneous Notes* Telephone Encounter - Evelyn Black RN - 04/18/2023 2:13 PM EDT [facility] SPECIALTY CARE COORDINATION TELEPHONE ENCOUNTER Contacted pt regarding a referral from Dr [facility] office. LVM and call back number. documented in this encounter[facility] Miscellaneous Notes* Telephone Encounter - Yancy Lopez - 04/07/2023 1:15 PM EDT Referral rec'd documented in this encounter[facility]06-17-2023 Evaluation + Plan note Extracted from: Title:ED Note Author:kaye Khristj Ibrahim Date :02/19/23 Right wrist sprain (S63.501A [...] pain, # 20 tab(s), Refills(s) 0, Pharmacy: [facility]/pharmacy #[id number], 170, cm, 02/19/23 0:56:00 EDT, Height/Length Dosing, 90.2, kg, 02/19/23 0:56:00 EDT, Weight Dosing XR Elbow 3+ Views Right XR Wrist 3+ Views Right [facility]06-17-2023 Hospital Discharge instructions Patient Education [...] are safe for you. General instructions Take lube-wpe-ljrjsmb and prescription medicines only as told by [...] provider. Document Revised: 12/29/2020 Document Reviewed: 12/29/2020 [employer] Patient Education 2022 [employer]. Follow Up Care 02/19/2023 00:51:16 With:JUDI YOUSSEF Address: [address] [place] [address]- [phone] Business (1) When:02/22/2023 Comments:Take the pain medication as prescribed as needed for pain. Please follow-up with your primary care doctor in the next 2 to 3 days for further evaluation management. Please return to the ED for any new or worsening symptoms or [facility]08-10-2022 Hospital Discharge instructions Patient Education [...] water added (diluted fruit juice). Eat bland, qfaf-pd-zohusd foods in small amounts as you are able. These foods include bananas, applesauce, rice, lean meats, toast, and crackers. Avoid fluids that contain a lot of sugar or caffeine, such as energy drinks, sports drinks, and soda. Avoid alcohol. Avoid spicy or fatty foods. General instructions Take trmn-fsp-tbvakrt and prescription medicines only as told by your health care provider. Drink enough fluid to keep your urine pale yellow. Wash your hands often using soap and water. If soap and water are not available, use hand joinery machinist. Make sure that all people in your [...] eating and drinking to prevent dehydration. Take snkd-hfb-gdqzads and prescription medicines only as told by [...] 08/22/2006 Document Revised: 12/14/2019 Document Reviewed: 01/30/2019 [employer] Patient Education 2019 [employer]. Follow Up Care 01/28/2022 13:58:23 With:Monique Maruqez CNP Address: When:3 months [facility] 05-26-2022 Hospital Discharge [...] drinks. ?Tomatoes and foods made with tomatoes. ?[place] or spicy foods. ?Chocolate and peppermint. Do not drink alcohol. General instructions Take cknj-awv-tauhelf and prescription medicines only as told by [...] 11/11/2004 Document Revised: 12/18/2018 Document Reviewed: 12/18/2018 [employer] Patient Education 2019 [employer]. Follow Up Care 01/13/2022 12:36:01 With:Monique Marquez CNP Address: When:3 months [facility] 05-09-2022 Hospital Discharge instructions Patient Education 01/11/2022 09:56:58 Endoscopy, Care After Procedure [facility] Care After Procedure Please read the instructions outlined below and refer to this sheet in the next few weeks. These discharge instructions provide you with general information on caring for yourself [facility]. Your doctor may also give you [...] 04/05/2005 Document Re-Released: 02/13/2007 ExitCare Patient Information 2009 [employer]. 01/11/2022 09:56:58 Pearce's Esophagus Pearce's Esophagus Pearce's [...] drinks. ?Tomatoes and foods made with tomatoes. ?[place] or spicy foods. ?Chocolate and peppermint. Do not drink alcohol. General instructions Take gmwb-pzr-rlzuqsh and prescription medicines only as told by [...] 11/11/2004 Document Revised: 12/18/2018 Document Reviewed: 12/18/2018 [employer] Patient Education 2020 [employer]. Follow Up Care 12/03/2021 15:32:26 With:Anai FORBES Address: [address] [place] [address] Business (1) When:1 to 2 weeks Comments:Call for any problems. [facility]03-30-2022 Hospital Discharge instructions Follow Up Care 12/02/2021 10:32:32 With:JHOANA MELGOZA PA-C, URL Address: [address] [place] [address] When: Unknown [facility] [place] Evaluation + Plan note Future Appointments Appointment Date:01/11/2022 09:40:00 AM Scheduled Provider: Location:[facility] Appointment Type:Surgery FT [facility] [place] Evaluation + Plan note Future Appointments Appointment Date:04/14/2022 03:00:00 PM Scheduled Provider:Monique Marquez CNP [place] App[facility] Type[facility] Follow Up Future Scheduled Tests Radiology* NM Gastric Emptying Study 01/28/22 [facility] Evaluation + Plan note Future Appointments Appointment Date:04/14/2022 03:00:00 PM Scheduled Provider:Monique Marquez CNP Location:[facility] Appointment Type:BAD [facility] Future Appointments Appointment Date:04/20/2022 12:00:00 PM Scheduled Provider: Location:.[facility] Appointment Type:US Abdominal/Pelvis () Appointment Date:06/02/2022 09:45:00 AM Scheduled Provider:Anai FORBES MD Location:[facility] Appointment Type:[facility] Follow Up Future Scheduled Tests Laboratory* Fecal WBC Lactoferrin 04/14/22 * Giardia lamblia, Direct Detection EIA 04/14/22 * O & P Exam, Routine 04/14/22 * Clostridium difficile by PCR 04/14/22 * Enteric Panel by PCR 04/14/22 * CBC w/ Auto Diff 04/14/22 * Comprehensive Metabolic Panel 04/14/22 Radiology* US Abdomen Complete 04/20/22 [facility] Evaluation + Plan note Future Appointments Appointment Date:06/02/2022 09:45:00 AM Scheduled Provider:Anai FORBES MD Location[place] Appointment Type:[facility] Follow Up Diagnostic Tests Pending * O & P Exam, Routine 04/29/22 * Giardia lamblia, Direct Detection EIA 04/29/22 [facility] note[facility] assessment information available [facility] Work Phone: Evaluation noteNo InformationNocox monett [employer] Other Evaluation note* Diagnosis Nausea- Primary Nausea alone Dysphagia, unspecified type documented in this encounter [facility] note* Diagnosis Nausea Nausea alone documented in this encounter [facility] note* Diagnosis Dysphagia, unspecified type Gastroparesis History of Pricilla fundoplication Personal history of surgery to other organs documented in this encounter [facility] note* Diagnosis Gastroparesis- Primary Malnutrition of moderate degree (HCC) Malnutrition of moderate degree Gastro-esophageal reflux disease without esophagitis Esophageal reflux Overweight (BMI 25.0-29.9) Overweight Dietary counseling and surveillance Dietary surveillance and counseling documented in this encounter [facility] note* Diagnosis Gastroparesis- Primary documented in this encounter [facility] note* Diagnosis Onset Date Resolution Status Abdominal adhesions acute Dysphagia acute Small bowel obstruction acut e [facility] Work Phone: History and physical note Author Jennie Ayon [facility] May 11, 2024 10:16am Note Date/Time May 11, 2024 10:16am [facility] [address] [place] [address] Gastroenterology H&P Signed Patient: Constantino Cardoso MR#: [id number] : 1970 Acct:[id number] Age/Sex: 53 / F Adm Date: 4 Loc: Room: Type: [facility] Attending Dr: Jennie Ayon MD Copies to: MD Judi Kamara CNP~ Date of Service: 05/11/2024 HISTORY & PHYSICAL: Patient's history with special attention to the cardiovascular, pulmonary systems and the current problem was reviewed with the patient immediately prior to the procedure. Present medications and doses reviewed in the EMR. Allergies and pertinent laboratory tests were also reviewedat this time in the EMR. The physical examination, as below, was then performed. Indication, assessment and HPI: 53-year-old female here for EGD for evaluation of dysphagia Family history of GI malignancy? No PHYSICAL EXAMINATION General appearance: NAD Skin: No jaundice Head: NC/AT Eyes: Anicteric Neck: Supple Lungs: Normal respiratory effort, no use of accessory muscles Abdomen: nondistended Neuro: Ox3. REVIEW OF SYSTEMS Constitutional: Denies malaise, fevers Cardiovascular: Denies chest pain, palpitations Respiratory: Denies shortness of breath, wheezing Gastrointestinal: As per HPI Genitourinary: Denies dysuria, polyuria Musculoskeletal: Denies joint swelling, joint stiffness Neurological: Denies confusion, numbness, tingling Endocrine: Denies fatigue Written informed consent obtained from the patient. Risks (including but not limited to perforation, infection, bloating, bleeding, need for emergent surgeryand loss of life), benefits and alternatives explained and questions answered. The patient verbalized understanding. Based on history patient is an appropriate candidate for the procedure. Jennie Ayon M.D. Documented By: Jennie Ayon MD 05/11/24 1015 Signed By: <Electronically signed by Jennie Ayon MD> 05/11/[address] [facility] Work Phone: History general Narrative - Reported* Type Description Date Medical History mitral valve prolapse Medical History gallstones Medical History Acid reflux Medical History Hiatal Hernia Medical History headache Surgical History hysterectomy Surgical History cholecystectomy Surgical History hiatal hernia repair Hospitalization History see above Hospitalization History kindey infections hospit alized x3 [employer] Other Hospital course Narrative No data available for this section [facility] Hospital Discharge instructions No data available for this section [facility] Additional Instructions Follow-up with your primary care doctor Return to ED if develop worsening symptoms or concernsSt. [facility] Work Phone: Hospital Discharge instructions Additional Instructions If your symptoms return/worsen or you develop any further concerns or symptoms please see your doctor or return to the emergency department immediately. 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 Work Phone: Hospital Discharge instructions Additional Instructions DISCHARGE INSTRUCTIONS FOR UPPER ENDOSCOPY WHAT TO EXPECT: - You may feel full, gassy or cramping after your procedure. In some cases, this may be from a few hours to a day. Walking may help relieve the discomfort. - Your throat may feel sore today from the scope that the doctor passed through your throat to visualize your stomach. Take a throat lozenge or suck on ice to ease the discomfort. - You may notice some streaks of blood in your sputum if the doctor has taken a biopsy. - You should begin to recover from anesthesia within 1 hour of the procedure, however may feel groggy for the next 24 hours. DO's AND DON'Ts: - Call your doctor right away if you have a hard abdomen, severe pain, vomiting or if you cough up large amounts of blood. - Call your doctor if you develop any rashes, hives or difficulty breathing. - If you take 81 mg aspirin for your heart it is safe to resume this medication. - If you take other blood thinner medications your doctor will instruct you when these can safely be resumed. - Do NOT drive for 24 hours. - Do NOT operate machinery such as power tools, [employer] mowers, snow blowers, sewing machines, etc. for 24 hours. - Avoid alcoholic beverages and drugs for allergies, nerves, or sleep. - Do NOT stay alone. Do NOT leave your child unattended. - Do NOT make important personal or business decisions or sign any legal documents. - Eat solid foods and drink liquids in smaller amounts than usual until normal appetite returns. If you should experience an upset stomach, liquids high in sugar content (soda, Michael-Aid, non-acid juices) are recommended. - Do NOT smoke. - Do take it easy today. You need not stay in bed, but avoid strenuous activities such as jogging or working out. FOLLOW UP & RECOMMENDATIONS: -Avoid NSAIDs. -Pantoprazole 40 mg daily -Notify the doctor if you have any problems. -Follow up with PCP. -Office number [phone]. [facility] Work Phone: Progress note No data available for this section [facility] for referral (narrative)* Diagnostic Procedure Only (Routine) - Authorized Specialty Diagnoses / Procedures Referred By Eileen t Referred To Contact MOLECULAR & FUNCTIONAL IMAGING Diagnoses Nausea Procedures NM GASTRIC EMPTYING SOLID GASTRIC EMPTYING STUDY Marques Bradley MD [address] [place] [address] Molecular & Functional Imaging [address] [phone] Referral ID Status Reason Start Date Expiration Date Visits Requested Visits Authorized [id number] Authorized Auto-Generat ed Referral 05/16/2023 06/14/2024 1 1 * Outpatient Procedure (Routine) - Authorized Specialty Diagnoses / Procedures [facility] Diagnoses Nausea Procedures MANOMETRY ESOPHAGEAL ESOPHAGEAL MOTILITY STUDY W/INTERP&RPT Marques Bradley MD [address] [place] [address] [address] [phone] Referral ID Status Reason Start Date Expiration Date Visits Requested Visits Authorized [id number] Authorized Auto-Generat ed Referral 05/16/2023 05/16/2024 1 1 [facility] for referral (narrative)* Outpatient Procedure (Routine) - Closed Specialty Diagnoses / Procedures [facility] To [facility] Diagnoses Dysphagia, unspecified type Gastroparesis History of Pricilla fundoplication Procedures EGD - THERAPEUTIC, EUS, OR TUBE INTERVENTIONS ESOPHAGOGASTRODUODENOSCOPY TRANSORAL DIAGNOSTIC STOMACH SURGERY PROCEDURE UNLISTED Marques Bradley MD [address] [place] [address] [address] Referral ID Status Reason Start Date Expiration Date V isits Requested Visits Authorized [id number] Closed Auto-Generate d Referral 05/27/2023 05/27/2024 1 1 [facility] for referral (narrative)* Outpatient Procedure (Routine) - Authorized Specialty Diagnoses / Procedures [facility] To [facility] Diagnoses Gastroparesis Procedures EGD - THERAPEUTIC, EUS, OR TUBE INTERVENTIONS ESOPHAGOGASTRODUODENOSC OPY TRANSORAL DIAGNOSTIC STOMACH SURGERY PROCEDURE UNLISTED Marques Bradley MD [address] [place] [address] [facility] [address] [place] [id number] Referral ID Status Reason Start Date Expiration Date Visits Requested Visits Authorized [id number] Authorized Auto-Generat ed Referral 3 07/29/2024 1 1 [facility] for visit Narrative* Outpatient Procedure (Routine) - Closed Specialty Diagnoses / Procedures Referred By Contac t Referred To Contact [facility] Diagnoses Dysphagia, unspecified type Gastroparesis History of Pricilla fundoplication Procedures EGD - THERAPEUTIC, EUS, OR TUBE INTERVENTIONS ESOPHAGOGASTRODUODENOSCOPY TRANSORAL DIAGNOSTIC STOMACH SURGERY PROCEDURE UNLISTED Marques Bradley MD [address] [place] [address] [facility] [address] [place] [address] Referral ID Status Reason Start Date Expiration Date V isits Requested Visits Authorized [id number] Closed Auto-Generate d Referral 05/27/2023 05/27/2024 1 1 [facility] Summary Purpose Family History No Family History Records Found Relationship Condition Age at Onset Recorded Date/T daniel father Myocardial infarction Unknown Malignant neoplasm Unknown sister Seizure Unknown Hypertension Unknown Relationship Condition Age at Onset Recorded Date/T daniel father Myocardial infarction Unknown Malignant neoplasm Unknown sister Seizure Unknown Hypertension Unknown father Malignant neoplasm Unknown Heart disease Unknown Unknown family member Unknown Relationship Condition Age at Onset Recorded Date/T daniel father Myocardial infarction Unknown Malignant neoplasm Unknown Heart disease Unknown sister Seizure Unknown Hypertension Unknown family member Unknown Advance Directives No Advanced Directives Records Found Advance Directive Response Recorded Date/ Time Advance Directives No November 23 9:23am Advance Directive Response Recorded Date/ Time Advance Directives No November 23 10:23am Hospital Course Note MR#: [id number] [facility] Pt. Name: Constantino Cardoso Admitted: 08/13/2019 [...] a 49-year-old female, who was transferred to [facility] from [facility] with acute abdominal pain. The pain has started on Tuesday while at work. 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 The pain feels similar to when she was here in April during her stay. During that time, she was told there was nothing left for Dr. Mortensen to do and she has been following up with GI specialist in [place]. She is actually due to have an EGD on August 22, 2019. She has been having nausea, but no vomit (more content not included)... Chief Complaint and Reason for Visit Chief Complaint stomach pain/hx marium Chief Complaint stomach pain/hx marium R10.9 K59.00 Chief Complaint abd pain stomach pian/vomiting Chief Complaint follow up to Small b owel obstruction Reason for Visit Abdominal adhesions Dysphagia Small bowel obstruction Chief Complaint follow up to Small b owel obstruction Dysphagia Dysphagia Reason for Visit Abdominal adhesions Dysphagia Small bowel obstruction Additional Source Comments INFORMATION SOURCE (unrecogn ized section and content) DATE CREATED AUTHOR 06/03/2020 [facility] DATE CREATED AUTHOR AUTHOR'S ORGANIZ ATION 01/17/[address] [facility] DATE CREATED AUTHOR AUTHOR'S ORGANIZ ATION 04/02/2023 [facility] DATE CREATED AUTHOR AUTHOR'S ORGANIZ ATION 08/26/[address] [facility] DATE CREATED AUTHOR AUTHOR'S ORGANIZ ATION 12/03/2023 [facility] DATE CREATED AUTHOR AUTHOR'S ORGANIZ ATION 02/17/2024 [facility] DATE CREATED AUTHOR AUTHOR'S ORGANIZ ATION 02/19/2024 [facility] DATE CREATED AUTHOR AUTHOR'S ORGANIZ ATION 04/10/2024 [facility] DATE CREATED AUTHOR AUTHOR'S ORGANIZ ATION 05/09/2024 [facility] DATE CREATED AUTHOR AUTHOR'S ORGANIZ ATION 05/14/2024 [facility] DATE CREATED AUTHOR AUTHOR'S ORGANIZ ATION 05/22/2024 [facility] Care Team (unrecognized sect ion and content) Team Status: Inactive Member Role Status Dates Judi Youssef , BUTCHER HELPER-C Primary Care Provider Active Conner Griffith DO Emergency Provider Active Team Status: Active Member Role Status Dates Judi Youssef BUTCHER HELPER-C Primary Care Provider Active Team Status: Inactive Member Role Status Dates Jennie Ayon MD Attending Provider Active Judi Youssef BUTCHER HELPER-C Primary Care Provider Active Team Status: Inactive Member Role Status Dates Judi Youssef BUTCHER HELPER-C Primary Care Provider Active Pete Thakkar DO Emergency Provider Active Keel Press 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 Relationship Specialty Start Date End Date DomenicoJoel blanco PCP - General Family Medicine 04/26/18 Rafa Rangel [address] [place] [phone] Referring General Surgery 04/26/18 [employer] Press Operator Relationship Specialty Start Date End Date DomenicoJoel blanco Onel PCP - General Family Medicine 04/26/18 Rafa Rangel [address] [place] [phone] Referring General Surgery 04/26/18 [employer] Press Operator Relationship Specialty Start Date End Date NyJoel Onel PCP - General Family Medicine 04/26/18 Rafa Rangel [address] [place] [phone] Referring General Surgery 04/26/18 [employer] Press Operator Relationship Specialty Start Date End Date Joel Alejandra PCP - General Family Medicine 04/26/18 Rafa Rangel [address] [place] [address] Referring General Surgery 04/26/18 [employer] Press Operator Relationship Specialty Start Date End Date NyJoel PCP - General Family Medicine 04/26/18 Rafa Rangel [address] [place] [phone] Referring General Surgery 04/26/18 [employer] Press Operator Relationship Specialty Start Date End Date Ny Joel Panchal PCP - General Family Medicine 04/26/18 Raf[address] Rangel [address] [place], [place] [address] [place] [phone] Referring General Surgery 04/26/18 [employer] Press Operator Relationship Specialty Start Date End Date NyJoel Onel PCP - General Family Medicine 04/26/18 Rafa Rangel [address] [place] [phone] Referring General Surgery 04/26/18 [employer] Press Operator Relationship Specialty Start Date End Date Joel Alejandra PCP - General Family Medicine 04/26/18 Rafa Rangel [address] [place] [phone] Referring General Surgery 04/26/18 [employer]el Press Operator Relationship Specialty Start Date End Date Joel Alejandra PCP - General Family Medicine 04/26/[address] [facility] [address] [place] [phone] Referring General Surgery 04/26/18 [employer]el Press Operator Relationship Specialty Start Date End Date Joel Alejandra PCP - General Family Medicine 04/26/[address] [facility] [address] [place] [phone] Referring General Surgery 04/26/18 [employer]el Press Operator Relationship Specialty Start Date End Date Joel Alejandra PCP - General Family Medicine 04/26/[address] [facility] [address] [place] [phone] Referring General Surgery 04/26/18 Team Status: Inactive Member Role Status Dates DONI Stovall Primary Care Provider Active Start: April 26, 2024 End: April 26, 2024 Jennie Ayon MD Attending Provider Active Start: April 26, 2024 End: April 26, 2024 Team Status: Inactive Member Role Status Dates DONI Stovall Primary Care Provider Active Start: May 11, 2024 End: May 11, 2024 Jennie Ayon MD Attending Provider Active Start: May 11, 2024 End: May 11, 2024 Team Status: Active Member Role Status Dates DONI Stovall Primary Care Provider Active Start: May 11, 2024 Jennie Ayon MD Attending Provider, Other Provider Active Start: May 11, 2024 Goals (unrecognized section and content) Goals may be documented in a n alternate section REASON FOR VISIT (unrecogniz ed section and content) Reason Comments Appointment Reason Comments Clinical Support Associate - Other Reason Onset Date Comments Procedure 05/25/2023 Manometry Esopha geal Specialty Diagnoses / Procedures Referred By Contac t Referred To Contact [facility] Diagnoses Nausea Procedures MANOMETRY ESOPHAGEAL ESOPHAGEAL MOTILITY STUDY W/INTERP&RPT Marques Bradley MD [address] [place] [address] [facility] [address] [place] [address] Referral ID Status Reason Start Date Expiration Date V isits Requested Visits Authorized [id number] Closed Auto-Generate d Referral 05/16/2023 05/16/2024 1 1 Reason Comments Results Reason Comments Patient Education Assessment Source Comments (unrecognize d section and content) In the event this informatio n is protected by the Federal Confidentiality of Alcohol and Drug Abuse Patient Records regulations: The Federal rules restrict any use of the information to criminally investigate or prosecute any alcohol or drug abuse patient.[facility] the event this information is protected by the Federal Confidentiality of Alcohol and Drug Abuse Patient Records regulations: The Federal rules restrict any use of the information to criminally investigate or prosecute any alcohol or drug abuse patient.[facility] the event this information is protected by the Federal Confidentiality of Alcohol and Drug Abuse Patient Records regulations: The Federal rules restrict any use of the information to criminally investigate or prosecute any alcohol or drug abuse patient.[facility] the event this information is protected by the Federal Confidentiality of Alcohol and Drug Abuse Patient Records regulations: The Federal rules restrict any use of the information to criminally investigate or prosecute any alcohol or drug abuse patient.[facility] the event this information is protected by the Federal Confidentiality of Alcohol and Drug Abuse Patient Records regulations: The Federal rules restrict any use of the information to criminally investigate or prosecute any alcohol or drug abuse patient.[facility] the event this information is protected by the Federal Confidentiality of Alcohol and Drug Abuse Patient Records regulations: The Federal rules restrict any use of the information to criminally investigate or prosecute any alcohol or drug abuse patient.[facility] the event this information is protected by the Federal Confidentiality of Alcohol and Drug Abuse Patient Records regulations: The Federal rules restrict any use of the information to criminally investigate or prosecute any alcohol or drug abuse patient.[facility] the event this information is protected by the Federal Confidentiality of Alcohol and Drug Abuse Patient Records regulations: The Federal rules restrict any use of the information to criminally investigate or prosecute any alcohol or drug abuse patient.[facility] Clinic[facility] the event this information is protected by the Federal Confidentiality of Alcohol and Drug Abuse Patient Records regulations: The Federal rules restrict any use of the information to criminally investigate or prosecute any alcohol or drug abuse patient.[facility] the event this information is protected by the Federal Confidentiality of Alcohol and Drug Abuse Patient Records regulations: The Federal rules restrict any use of the information to criminally investigate or prosecute any alcohol or drug abuse patient.[facility] the event this information is protected by the Federal Confidentiality of Alcohol and Drug Abuse Patient Records regulations: The Federal rules restrict any use of the information to criminally investigate or prosecute any alcohol or drug abuse patient.[facility] ClinicIn the event this information is protected by the Federal Confidentiality of Alcohol and Drug Abuse Patient Records regulations: The Federal rules restrict any use of the information to criminally investigate or prosecute any alcohol or drug abuse patient.[facility] FOR RECORDS PERTAINING TO PATIENTS WHO ARE [...] BE BASED ON THE PRIMARY CLINICAL RECORDS. [facility]. provides no warranty or guarantee of the accuracy or completeness of information in this document.
--- NOTE | 2024-06-01 21:57 | ED_ITS ---
HPI - Abdominal Pain General Chief Complaint: Abdominal Pain Stated Complaint: Abdominal Pain Time Seen by Provider: 06/01/24 21:54 Source: patient Mode of arrival: walk-in Limitations: no limitations History of Present Illness HPI narrative: patient presents complaining of abdominal pain. states pain present all day. No vomiting but is nauseated. no diarrhea or constipation. States past history of bowel obstruction. No fever Related Data Home Medications ?Medication ?Instructions ?Recorded ?Confirmed dicyclomine 20 mg tablet 20 mg PO QID 11/27/23 06/01/24 pantoprazole 40 mg tablet,delayed 40 mg PO DAILY 12/15/23 06/01/24 release cholecalciferol (vitamin D3) 50 50 mcg PO DAILY 04/13/24 06/01/24 mcg (2,000 unit) capsule lisinopril 10 mg tablet 10 mg PO DAILY 04/13/24 06/01/24 metoprolol succinate 50 mg 50 mg PO DAILY 04/13/24 06/01/24 tablet,extended release 24 hr sertraline 50 mg tablet 50 mg PO DAILY 04/13/24 06/01/24 Previous Rx's ?Medication ?Instructions ?Recorded ondansetron 4 mg disintegrating 4 mg PO Q8H PRN nausea and 04/13/24 tablet vomiting 3 days #10 tabs Allergies Allergy/AdvReac Type Severity Reaction Status Date / Time cyclobenzaprine Allergy Severe Anaphylaxis Verified 06/01/24 21:44 [From Flexeril] Penicillins Allergy Intermediate Hives Verified 06/01/24 21:44 Review of Systems ROS Status of ROS 10 or more systems reviewed and unremark able except as noted in history and below [facility] Medical History (Updated 06/02/24 @ 00:29 by Adithya Quiros MD) Partial obstruction of small intestine ?K56.600 - Partial intestinal obstruction, unspecified as to cause (ICD-10) Constipation ?K59.00 - Constipation, unspecified (ICD-10) Ileus ?K56.7 - Ileus, unspecified (ICD-10) Nausea and vomiting ?R11.2 - Nausea with vomiting, unspecified (ICD-10) GERD (gastroesophageal reflux disease) ?K21.9 - Gastro-esophageal reflux disease without esophagitis (ICD-10) Elevated troponin ?R77.8 - Other specified abnormalities of plasma proteins (ICD-10) Chronic upper abdominal pain ?R10.10 - Upper abdominal pain, unspecified (ICD-10) ?G89.29 - Other chronic pain (ICD-10) Epigastric abdominal pain ?R10.13 - Epigastric pain (ICD-10) Abdominal pain, chronic, generalized ?R10.84 - Generalized abdominal pain (ICD-10) ?G89.29 - Other chronic pain (ICD-10) Headache, migraine ?G43.909 - Migraine, unspecified, not intractable, without status migrainosus (ICD-10) Gastroparesis ?K31.84 - Gastroparesis (ICD-10) Mitral valve disorder ?I05.9 - Rheumatic mitral valve disease, unspecified (ICD-10) Surgical History 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 ?K95.89 - Other complications of other bariatric procedure (ICD-10) ?K22.4 - Dyskinesia of esophagus (ICD-10) History of hernia surgery ?Z98.890 - Other specified postprocedural states (ICD-10) ?Z87.19 - Personal history of other diseases of the digestive system (ICD-10) FH: cholecystectomy ?Z83.79 - Family history of other diseases of the digestive system (ICD-10) H/O: hysterectomy ?Z90.710 - Acquired absence of both cervix and uterus (ICD-10) Family History Father Family history of myocardial infarction Family history of cancer Grandmother Family history of diabetes mellitus Family history of stroke Sister Family history of hypertension Social History Within the past year, how often did you have a drink containing alcohol: never Within the past year, how many standard drinks containing alcohol did you have on a typical day: 1 or 2 Within the past year, how often did you have six or more drinks on one occasion: never Total score: 0 Score interpretation: A score less than 3 is consistent with normal alcohol consumption. 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 Known occupational exposures/hazards: No Highest level of school completed/degree received: high school graduate Do you want help with school or training: No Are you now , , , , never or living with a partner: In a typical week, how many times do you talk on the telephone with family, friends, or neighbors: 3 or more times per week How often do you get together with friends or relatives: 3 or more times per week How often do you attend orthodoxy or jain services: never Do you belong to any clubs or organizations such as orthodoxy groups unions, [employer] or athletic groups, or school groups: no Total score: 2 Score interpretation: A score of greater than or equal to 2 indicates the lowest level of social isolation. Little interest or pleasure in doing things: not at all Feeling down, depressed, or hopeless: not at all Feel stressed/tense/nervous/anxious/difficulty sleeping: not at all Due to disability, difficulty making decisions: No Do you think of yourself as: straight/heterosexual Gender Identity: female Exam Constitutional Vital Signs, click to edit/add: Last Vital Signs Temp 97.7 F 06/01/24 21:41 Pulse 62 06/01/24 21:41 Resp 16 06/01/24 21:41 BP 173/87 H 06/01/24 21:41 Pulse Ox 99 06/01/24 21:41 O2 Del Method Room Air 06/01/24 21:41 Common normals: no apparent distress, average body habitus, oriented x3, no limitations, healthy appearing, alert and well nourished [facility] Common normals: normocephalic and head/scalp atraumatic Eye Common normals: EOMs intact bilaterally and conjunctivae normal Respiratory Common normals: normal respiratory effort, no retractions, no use of accessory muscles and clear to auscultation bilaterally Cardio Common normals: regular rate, regular rhythm, S1 normal heart sound and S2 normal heart sound GI Common normals: Normal to inspection, nondistended, normoactive bowel sounds present and soft to palpation Other: gen. nonspecific mild-mod tenderness Neuro Common normals: oriented x3, CN's II-XII intact bilaterally, moves all extremities and no focal motor deficits Psych Appearance: grossly normal Course Vital Signs Vital signs: Vital Signs Temperature 97.7 F 06/01/24 21:41 Pulse Rate 62 06/01/24 21:41 Respiratory Rate 16 06/01/24 21:41 Blood Pressure 173/87 H 06/01/24 21:41 Pulse Oximetry 99 06/01/24 21:41 Oxygen Delivery Method Room Air 06/01/24 21:41 Temperature 97.7 F 06/01/24 21:41 Pulse Rate 62 06/01/24 21:41 Respiratory Rate 16 06/01/24 21:41 Blood Pressure 173/87 H 06/01/24 21:41 Pulse Oximetry 99 06/01/24 21:41 Oxygen Delivery Method Room Air 06/01/24 21:41 MDM - Abdominal Pain MDM Narrative Medical decision making narrative: patient presents with abdominal pain and nausea. States past history of bowel obstruction. mild nonspecific tenderness of her abdomen. CT without acute findings. Patient is feeling better after treatment in the department and discharged home Lab Data Labs: Lab Results 06/01/24 Range/Units 22:00 WBC 6.5 (4.0-11.0) 10^3/uL RBC 3.72 L (4.20-5.40) 10^6/uL Hgb 11.2 L (12.0-16.0) g/dL Hct 34.6 L (36.0-48.0) % MCV 93.0 (81.0-99.0) fL MCH 30.1 (26.7-34.0) pg MCHC 32.4 (29.9-35.2) g/dL RDW 13.1 (11.0-15.0) % Plt Count 334 (150-450) 10^3/uL MPV 9.3 L (9.5-13.5) fL Neut % (Auto) 65.7 (43.0-75.0) % Lymph % (Auto) 22.2 (20.5-60.0) % [place] % (Auto) 7.0 (1.7-12.0) % Eos % (Auto) 4.1 (0.9-7.0) % Baso % (Auto) 0.5 (0.2-2.0) % Neut # (Auto) 4.3 (1.4-6.5) 10^3/uL Lymph # (Auto) 1.5 (1.2-3.8) 10^3/uL [place] # (Auto) 0.5 (0.3-0.8) 10^3/uL Eos # (Auto) 0.3 (0.0-0.7) 10^3/uL Baso # (Auto) 0.0 (0.0-0.1) 10^3/uL Abs Immat Gran (auto) 0.03 (0.00-0.03) 10^3/uL Imm/Tot Granulo (auto) 0.5 (0.0-0.5) % Sodium 140 (136-145) mmol/L Potassium 3.7 (3.5-5.1) mmol/L Chloride 106 (98-107) mmol/L Carbon Dioxide 24.2 (21.0-32.0) mmol/L Anion Gap 13.5 BUN 27.0 H (7.0-18.0) mg/dL Creatinine 0.87 (0.55-1.02) mg/dL Est GFR ( Amer) >60 (>=60) Est GFR (Non-Af Amer) >60 (>=60) BUN/Creatinine Ratio 31.0 Glucose 83 (74-106) mg/dL Lactate 1.1 (0.4-2.0) mmol/L Calcium 8.4 L (8.5-10.1) mg/dL Total Bilirubin 0.4 (0.2-1.0) mg/dL AST 13 L (15-37) U/L ALT 19 (14-59) U/L Alkaline Phosphatase 145 H (46-116) U/L Troponin I High Sens 25.5 (4.0-51.3) pg/mL Total Protein 6.7 (6.4-8.2) g/dL Albumin 3.4 (3.4-5.0) g/dL Globulin 3.3 g/dL Albumin/Globulin Ratio 1.0 Lipase 42.0 (16.0-77.0) U/L Imaging Data Abdominal x-ray: Radiologist's impression: ITS Impressions Abdomen/Pelvis CT 06/01/24 22:00 IMPRESSION: 1. No specific etiology identified to explain the patient's abdominal pain. 2. Status post cholecystectomy with biliary prominence which is increased compared to the prior examinations. This could be further evaluated with MRI if clinically indicated. 3. Indeterminate right renal lesion measuring up to 2.3 x 1.8 cm, previously 2.1 x 1.3 cm on 12/15/2023. This could be further evaluated with a nonemergent outpatient ultrasound or contrast enhanced MRI examination to exclude malignancy. 3. Status post hysterectomy and suspected appendectomy as the appendix is not seen. Electronically authenticated by: Mariajose ALONSO Date: 06/01/2024 23:13 Discharge Plan Discharge Chief Complaint: Abdominal Pain Clinical Impression: Abdominal pain Patient Disposition: Home, Self-Care Prescriptions / Home Meds: No Action pantoprazole 40 mg tablet,delayed release (DR/EC) 40 mg PO DAILY lisinopril 10 mg tablet 10 mg PO DAILY metoprolol succinate 50 mg tablet extended release 24 hr 50 mg PO DAILY sertraline 50 mg tablet 50 mg PO DAILY cholecalciferol (vitamin D3) 50 mcg (2,000 unit) capsule 50 mcg PO DAILY ondansetron 4 mg tablet,disintegrating 4 mg PO Q8H PRN (Reason: nausea and vomiting) 3 Days Qty: 10 0RF dicyclomine 20 mg tablet 20 mg PO QID Print Language: Burundian Instructions: Abdominal Pain (ED) Additional Instructions: follow up with your doctor next week Referrals: STEPHANIE YOUSSEF [Primary Care Provider] - 1 week
--- NOTE | 2024-06-01 22:00 | CT_ITS ---
The [address] [address] Patient Name: CONSTANTINO CARDOSO MRN: [id number] date: 1970 Sex: F Assigned Patient Location: ER Current Patient Location: [facility] Accession/Order Number: [id number] Exam Date: 06/01/2024 22:21 Report Date: 06/01/2024 23:13 At the request of: KATHRIN VANCE Procedure: CT abdomen pelvis w con EXAM: CT abdomen pelvis w con HISTORY: abdominal pain COMPARISON: CT abdomen and pelvis examination dated 04/13/2024. CT abdomen and pelvis examination dated 03/25/2023. CT abdomen and pelvis examination dated 12/15/2023. TECHNIQUE: Axial CT images through the abdomen and pelvis were obtained after the intravenous administration of contrast. Coronal and sagittal reformats were obtained. Dose reduction techniques were achieved by using automated exposure control and/or adjustment of mA and/or kV according to patient size and/or use of iterative reconstruction technique. FINDINGS: There is mild bibasilar atelectasis and/or scarring. There is a stable, likely benign 2 mm nodule in the left lower lobe (series 3, image 21). There is a small hiatal hernia. There are postsurgical changes at the gastroesophageal junction. Abdomen: The liver and spleen enhance homogeneously without focal lesion. The patient is status post a cholecystectomy. There is biliary prominence which is increased compared to the prior examinations. There is an indeterminate right renal lesion measuring up to 2.3 x 1.8 cm that previously measured approximately 2.1 x 1.3 cm on 12/15/2023 (series 3, image 46). The pancreas, adrenal glands, and bowel loops are unremarkable. There is no mesenteric or retroperitoneal lymphadenopathy. The appendix is not seen. Pelvis: The bladder and rectum are unremarkable. There is no iliac or inguinal lymphadenopathy. The uterus is not seen. Bone windows show no aggressive osseous lesions. CT/CT abdomen pelvis w con IMPRESSION: 1. No specific etiology identified to explain the patient's abdominal pain. 2. Status post cholecystectomy with biliary prominence which is increased compared to the prior examinations. This could be further evaluated with MRI if clinically indicated. 3. Indeterminate right renal lesion measuring up to 2.3 x 1.8 cm, previously 2.1 x 1.3 cm on 12/15/2023. This could be further evaluated with a nonemergent outpatient ultrasound or contrast enhanced MRI examination to exclude malignancy. 3. Status post hysterectomy and suspected appendectomy as the appendix is not seen. Electronically authenticated by: Mariajose ALONSO Date: 06/01/2024 23:13
[2024-06-01] MEDS: FENTANYL CITRATE/PF 100 MCG/2 ML VIAL 50 MCG IV (22:14)
[2024-06-01] MEDS: ONDANSETRON PF 4 MG/2 ML VIAL IV (22:15)
[2024-06-01 22:27] LABS: Basophils Percent Auto 0.5 % (0.2-2.0); Eosinophils Absolute Auto 0.3 10^3/uL (0.0-0.7); Eosinophils Percent Auto 4.1 % (0.9-7.0); Hematocrit 34.6 % (36.0-48.0); Hemoglobin 11.2 g/dL (12.0-16.0); Immature Granulocytes Abs Auto 0.03 10^3/uL (0.00-0.03); Immature Granulocytes Pct Auto 0.5 % (0.0-0.5); Lymphocytes Absolute Auto 1.5 10^3/uL (1.2-3.8); Lymphocytes Percent Auto 22.2 % (20.5-60.0); Mean Corpuscular HGB Conc 32.4 g/dL (29.9-35.2); Mean Corpuscular Hemoglobin 30.1 pg (26.7-34.0); Mean Platelet Volume 9.3 fL (9.5-13.5); Monocytes Absolute Auto 0.5 10^3/uL (0.3-0.8); Neutrophils Absolute Auto 4.3 10^3/uL (1.4-6.5); Neutrophils Percent Auto 65.7 % (43.0-75.0); Platelet Count 334 10^3/uL (150-450); Red Blood Count 3.72 10^6/uL (4.20-5.40); Red Cell Distribution Width 13.1 % (11.0-15.0); White Blood Count 6.5 10^3/uL (4.0-11.0)
[2024-06-01 22:54] LABS: Alanine Aminotransferase 19 U/L (14-59); Albumin Level 3.4 g/dL (3.4-5.0); Alkaline Phosphatase 145 U/L (46-116); Anion Gap 13.5; Aspartate Amino Transferase 13 U/L (15-37); Bilirubin Total 0.4 mg/dL (0.2-1.0); Calcium 8.4 mg/dL (8.5-10.1); Carbon Dioxide 24.2 mmol/L (21.0-32.0); Chloride 106 mmol/L (98-107); Estimated GFR (African America >60 (>=60); Estimated GFR (Non-African Ame >60 (>=60); Globulin 3.3 g/dL; Glucose 83 mg/dL (74-106); Potassium 3.7 mmol/L (3.5-5.1); Sodium 140 mmol/L (136-145); Total Protein 6.7 g/dL (6.4-8.2); Troponin I High Sensitivity 25.5 pg/mL (4.0-51.3)
[2024-06-01 22:57] LABS: Lactate/Lactic Acid 1.1 mmol/L (0.4-2.0)
[2024-06-02] MEDS: KETOROLAC TROMETHAMINE 30 MG/ML VIAL IVP (00:34)
[2024-06-02] MEDS: PROMETHAZINE HCL 25 MG in 0.9 % SODIUM CHLORIDE 50 ML 204 MG IV (00:34)
[2024-06-02 00:58] VITALS: BP 153/99; PULSE 51; O2SAT 97
== END 2024-06-02 01:00 | disposition home or self-care (01) ==
PROVIDERS: Emergency Provider Internal Medicine; PCP Nurse Practitioner Family
DX: R10.9 Unspecified abdominal pain (principal); Z87.891 Personal history of nicotine dependence
CPT/HCPCS: 36415; 74177; 80053; 83605; 83690; 84484; 85025; 96365; 96375; 99284; J1885; J2250; J2405; J3010; Q9967

== ENCOUNTER 2024-06-24 01:15 | Emergency (ER) | payer OTHER, BC, SELFPAY ==
[2024-06-24 01:22] VITALS: BP 126/75; PULSE 62; TEMP 36.6; O2SAT 99; BMI 28.7
--- NOTE | 2024-06-24 01:27 | XR_ITS ---
The [address] [address] Patient Name: CONSTANTINO CRADOSO MRN: [id number] date: 1970 Sex: F Assigned Patient Location: ED.MAIN Current Patient Location: ER Accession/Order Number: [id number] Exam Date: 06/24/2024 01:30 Report Date: 06/24/2024 05:07 At the request of: ZEFERINO ARMAS Procedure: XR knee LT 3V HISTORY: Left knee pain after a fall. XR knee LT 3V: 06/24/2024 1:30 AM EDT COMPARISON: None. XR/XR knee LT 3V IMPRESSION: No fracture, dislocation, joint space narrowing or soft tissue swelling is seen. There is a moderate-sized suprapatellar joint effusion. There is a well-corticated ossicle at the tibial tubercle compatible with [place]-Schlatter's disease. Electronically authenticated by: MAILE HOUSER Date: 06/24/2024 05:07
--- NOTE | 2024-06-24 01:29 | ED_ITS ---
HPI HPI - Extremity Injury (Lower) General Chief Complaint: Extremity Injury, Lower Stated Complaint: Extremity Injury, Lower FALL Time Seen by Provider: 06/24/24 01:18 Source: patient Mode of arrival: walk-in History of Present Illness HPI Narrative: 54-year-old female presents for left knee pain. She tripped over a mattress and fell at work just before coming into the emergency department. She landed on the anterior left knee. No other injury was sustained. No pain in the hip or ankle. Related Data Home Medications ?Medication ?Instructions ?Recorded ?Confirmed dicyclomine 20 mg tablet 20 mg PO QID 11/27/23 06/01/24 pantoprazole 40 mg tablet,delayed 40 mg PO DAILY 12/15/23 06/01/24 release cholecalciferol (vitamin D3) 50 50 mcg PO DAILY 04/13/24 06/01/24 mcg (2,000 unit) capsule lisinopril 10 mg tablet 10 mg PO DAILY 04/13/24 06/01/24 metoprolol succinate 50 mg 50 mg PO DAILY 04/13/24 06/01/24 tablet,extended release 24 hr sertraline 50 mg tablet 50 mg PO DAILY 04/13/24 06/01/24 Previous Rx's ?Medication ?Instructions ?Recorded ondansetron 4 mg disintegrating 4 mg PO Q8H PRN nausea and 04/13/24 tablet vomiting 3 days #10 tabs ibuprofen 800 mg tablet 800 mg PO Q8H PRN pain #20 tabs 06/24/24 Allergies Allergy/AdvReac Type Severity Reaction Status Date / Time cyclobenzaprine (From Allergy Severe Anaphylaxis Verified 06/01/24 21:44 Flexeril) Penicillins Allergy Intermediate Hives Verified 06/01/24 21:44 Opioid HPI Opioid Management Most Recent Pain and Opioid Data: Last Pain Scale 10 06/01/24 22:14 06/01/24 Last ORT Total Score 0 11/27/23 09:50 11/27/23 Last ORT Risk Category Low Risk 11/27/23 09:50 11/27/23 Review of Systems ROS Narrative A ten point review of systems is negative except as noted above. PFSH PFS Medical History (Updated 06/24/24 @ 05:13 by Camilo Contreras MD) Partial obstruction of small intestine ?K56.600 - Partial intestinal obstruction, unspecified as to cause (ICD-10) Constipation ?K59.00 - Constipation, unspecified (ICD-10) Ileus ?K56.7 - Ileus, unspecified (ICD-10) Nausea and vomiting ?R11.2 - Nausea with vomiting, unspecified (ICD-10) GERD (gastroesophageal reflux disease) ?K21.9 - Gastro-esophageal reflux disease without esophagitis (ICD-10) Elevated troponin ?R77.8 - Other specified abnormalities of plasma proteins (ICD-10) Chronic upper abdominal pain ?R10.10 - Upper abdominal pain, unspecified (ICD-10) ?G89.29 - Other chronic pain (ICD-10) Epigastric abdominal pain ?R10.13 - Epigastric pain (ICD-10) Abdominal pain, chronic, generalized ?R10.84 - Generalized abdominal pain (ICD-10) ?G89.29 - Other chronic pain (ICD-10) Headache, migraine ?G43.909 - Migraine, unspecified, not intractable, without status migrainosus (ICD-10) Gastroparesis ?K31.84 - Gastroparesis (ICD-10) Mitral valve disorder ?I05.9 - Rheumatic mitral valve disease, unspecified (ICD-10) Surgical History 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 ?K95.89 - Other complications of other bariatric procedure (ICD-10) ?K22.4 - Dyskinesia of esophagus (ICD-10) History of hernia surgery ?Z98.890 - Other specified postprocedural states (ICD-10) ?Z87.19 - Personal history of other diseases of the digestive system (ICD-10) FH: cholecystectomy ?Z83.79 - Family history of other diseases of the digestive system (ICD-10) H/O: hysterectomy ?Z90.710 - Acquired absence of both cervix and uterus (ICD-10) Family History Father Family history of myocardial infarction Family history of cancer Grandmother Family history of diabetes mellitus Family history of stroke Sister Family history of hypertension Social History Within the past year, how often did you have a drink containing alcohol: never Within the past year, how many standard drinks containing alcohol did you have on a typical day: 1 or 2 Within the past year, how often did you have six or more drinks on one occasion: never Total score: 0 Score interpretation: A score less than 3 is consistent with normal alcohol consumption. 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 Known occupational exposures/hazards: No Highest level of school completed/degree received: high school graduate Do you want help with school or training: No Are you now , , , , never or living with a partner: In a typical week, how many times do you talk on the telephone with family, friends, or neighbors: 3 or more times per week How often do you get together with friends or relatives: 3 or more times per week How often do you attend yazidism or worship services: never Do you belong to any clubs or organizations such as yazidism groups unions, fraternal or athletic groups, or school groups: no Total score: 2 Score interpretation: A score of greater than or equal to 2 indicates the lowest level of social isolation. Little interest or pleasure in doing things: not at all Feeling down, depressed, or hopeless: not at all Feel stressed/tense/nervous/anxious/difficulty sleeping: not at all Due to disability, difficulty making decisions: No Do you think of yourself as: straight/heterosexual Gender Identity: female Exam Narrative Exam Narrative: Nurses note and vital signs reviewed and patient is not hypoxic. General: The patient appears in no apparent distress. Patient is resting comfortably on cart. Skin: Warm, dry, no pallor noted. There is no rash noted. Head: Normocephalic, atraumatic Eye: Normal conjunctiva, no drainage Ears, Nose, Mouth, and Throat: oral mucosa is moist. Nares patent. Cardiovascular: Regular Rate and Rhythm Respiratory: Patient is in no distress, no accessory muscle use Back: non-tender GI: Nontender Musculoskeletal: Left hip and ankle are nontender. She has some bruising and some tenderness on the anterior left knee. Knee has good range of motion. The knee joint is stable. Neurological: A&O, normal speech Psychiatric: Cooperative Constitutional Vital Signs, click to edit/add: Last Vital Signs Temp 97.8 F 06/24/24 01:22 Pulse 62 06/24/24 01:22 Resp 18 06/24/24 01:22 BP 126/75 06/24/24 01:22 Pulse Ox 99 06/24/24 01:22 O2 Del Method Room Air 06/24/24 01:22 Course Vital Signs Vital signs: Vital Signs Temperature 97.8 F 06/24/24 01:22 Pulse Rate 62 06/24/24 01:22 Respiratory Rate 18 06/24/24 01:22 Blood Pressure 126/75 06/24/24 01:22 Pulse Oximetry 99 06/24/24 01:22 Oxygen Delivery Method Room Air 06/24/24 01:22 Temperature 97.8 F 06/24/24 01:22 Pulse Rate 62 06/24/24 01:22 Respiratory Rate 18 06/24/24 01:22 Blood Pressure 126/75 06/24/24 01:22 Pulse Oximetry 99 06/24/24 01:22 Oxygen Delivery Method Room Air 06/24/24 01:22 MDM - Extremity Injury (Lower) MDM Narrative Medical decision making narrative: X-ray per radiologist shows no fractures but shows a suprapatellar effusion. Lew wrap applied, application checked by me and found to be appropriate, she is neurovascularly intact and an appointment was made for her to follow-up with orthopedics, July 02 at 10:30 AM. Findings are discussed with the patient. Differential Diagnosis Differential diagnosis: Likely other (Knee contusion, knee fracture, effusion) Imaging Data Left knee x-ray: Radiologist's impression: ITS Impressions Knee X-Ray 06/24/24 01:27 IMPRESSION: No fracture, dislocation, joint space narrowing or soft tissue swelling is seen. There is a moderate-sized suprapatellar joint effusion. There is a well-corticated ossicle at the tibial tubercle compatible with Van-Schlatter's disease. Electronically authenticated by: MAILE HOUSER Date: 06/24/2024 05:07 Discharge Plan Discharge Chief Complaint: Extremity Injury, Lower Clinical Impression: Contusion of left knee, Knee effusion, left Patient Disposition: Home, Self-Care Time of Disposition Decision: 05:13 Condition: Good Mode of Transportation: Private Vehicle Prescriptions / Home Meds: New ibuprofen 800 mg tablet 800 mg PO Q8H PRN (Reason: pain) Qty: 20 0RF No Action pantoprazole 40 mg tablet,delayed release (DR/EC) 40 mg PO DAILY lisinopril 10 mg tablet 10 mg PO DAILY metoprolol succinate 50 mg tablet extended release 24 hr 50 mg PO DAILY sertraline 50 mg tablet 50 mg PO DAILY cholecalciferol (vitamin D3) 50 mcg (2,000 unit) capsule 50 mcg PO DAILY ondansetron 4 mg tablet,disintegrating 4 mg PO Q8H PRN (Reason: nausea and vomiting) 3 Days Qty: 10 0RF dicyclomine 20 mg tablet 20 mg PO QID Print Language: Lithuanian Instructions: Contusion in Adults (ED) Referrals: STEPHANIE YOUSSEF [Primary Care Provider] - 1 week Samuel Harp MD [Physician] - 07/02/24 10:30 am
--- OUTSIDE RECORDS SUMMARY | 2024-06-24 01:30 | XMS_ITS | CCD ---
Author Organization [facility] Care Team Providers Care On Call Pharmacy Technician Name Role Phone LEONA MORTENSEN Admitting Unavailable LEONA MORTENSEN Attending Unavailable KEVIN HERRERA Primary Care Unavailable KEVIN HERRERA Referring Unavailable OK Procedure Practitioner Unavailab ORESTES Cruz Surgeon Unavailable JUDI YOUSSEF Primary Care Physician [phone] DONI Youssef Primary Care Provider DO Conner Griffith Emergency Provider Jennie Ayon Unavailable MD Jennie Ayon Attending Provider KLAUDIA, DR JOHNATHAN Botello Attending Unavailibis RUDOLPH, DR JOHNATHAN Botello Consulting Unavailibis RUDOLPH, DR JOHNATHAN Botello Admitting Unavailibis YOUSSEF, JUDI Primary Care Unavailable MIKAEL, JUDI Primary Care Unavailable GARETH Larson, DR GR Attending Unavailable GARETH ., DR GR Consulting Unavailable GARETH Larson, DR GR Admitting Unavailable ASHLEE APPLE Consulting Unavailable JUDI YOUSSEF Admitting Unavailable MIKAEL, JUDI Primary Care Unavailable JUDI YOUSSEF Attending Unavailable KATHRIN VANCE Admitting Unavailable MIKAEL, JUDI Primary Care Unavailable KWAME, DR CASSANDRA Chopra Consulting Unavailable KATHRIN VANCE Attending Kye Larson, DR BROWN Consulting Unavailable KATHRIN VANCE Consulting Unavailable PA, DR NORA Hairston Attending Unavailable PA, DR NORA Hairston Consulting Unavailable MIKAEL, JUDI Primary Care Unavailable PA, DR NORA Hairston Admitting Unavailable GUILLERMO ALLEN Consulting Unavailable SHAIKH Juan Luis DAVIS Admitting Unavailable MIKAEL, JUDI Primary Care Unavailable ALEXIA .DR GUILLERMO Consulting Unavaila SHAIKH Juan Luis Grant Attending Unavailable TERRIE, DR RUSH Hairston Consulting Unavailable BALTAZAR OAKES Consulting Unavailable SHAIKH [...] Unavailable PA, DR NORA Hairston Consulting Unavailable AP, DR NORA Hairston Admitting Unavailable MIKAEL, JUDI Primary Care Unavailable ORESTES VASQUEZ Consulting Unavailable MIKAEL, JUDI Admitting Unavailable MIKAEL, JUDI Primary Care Unavailable ZIEBMIMI, DR RUSH Hairston Consulting Unavailable MIKAEL, JUDI [...] Unavailable ZIEBER, DR RUSH Hairston Consulting Unavailable MIKALE, JUDI Attending Unavailable MIKAEL, JUDI Primary Care Unavailable MIKAEL, JUDI Consulting Unavailable MIKAEL, JUDI Admitting Unavailable KWAME, DR CASSANDRA Chopra Consulting Unavailable MIKAEL, JUDI Attending Unavailable MIKAEL, JUDI Primary Care Unavailable JUDI YOUSSEF Consulting Unavailable DONI Youssefela Joan Primary Care Provider [phone] Gladis Conner Hanna Emergency Provider DO Bijan Pete [place] Emergency Provider [facility], [facility] Primary Care Provider Rafa Rangel Unavailable [phone] Renny Omalley Unavailable KRMARQUES HAGER Referring Unavailable [facility], [facility] Primary Care Unavailable [facility], [facility] Primary Care Unavailable KROH, MARQUES Patel Referring Unavailable KROH, MARQUES Patel Attending Unavailable IMER CHERRY Referring [facility] Primary Care Unavailable PAV[facility], [facility] Primary Care Unavailable KROH, MARQUES D Referring Unavailable KAITLYN TORRES Attending Unavailable KROH, MARQUES Patel Referring Unavailable [facility], [facility] Primary Care Unavailable MELISSA MONTALVO Attending Unavailable KROH, MARQUES Patel Referring Unavailable [facility] Primary Care Unavailable SLY, SLY LE Attending Unavailable KROH, MARQUES Patel Referring Unavailable [facility] Primary Care Unavailable BRENNEN SHAW Attending Unavailable Orzech, Yolanda X Attending Unavailable Orzech, Yolanda X Admitting Unavailable Orzech, Yolanda X Attending Unavailable Orzech, Yolanda X Admitting Unavailable Orzech, Yolanda X Attending Unavailable Samuel Estrella Attending Unavailable LINDA Youssef-Paula Franco Primary Care Provider MD Nany Imleo Attending Provider [phone] EDISON KINCAID Attending Unavailable EDISON KINCAID Attending Unavailable EDISON KINCAID Attending Unavailable Orzech, Yolanda X Attending Unavailable Judi Youssef Primary Care Unavailable Asaad, Imad Admitting Unavailable Asaad, Imad Attending Unavailable Judi Youssef Primary Care Unavailable Asaad, Imad Admitting Unavailable Asaad, Imad Attending Unavailable Unallocated , [place] Provider Primary Care Provi christine Mikael BAKER, Judi Unavailable KULWANT HODGE Attending Unavailable KULWANT HODGE Referring Unavailable Allergies Allergy Classification Reported Allergen(s) Allergy Type Date of Onset Reaction(s) Facility (9 sources) cyclobenzaprine; Translations: [CYCLOBENZAPRINE] Drug Allergy 8 Swelling of Lip/Tongue/Thro at, Swelling of Lip/Tongue/Thro at, throat swelling [facility] Repository (10 sources) Penicillins; Translations: [PENICILLINS] Drug allergy (disorder) 5 Rash [facility] Repository (20 sources) cyclobenzaprine; Translations: [cyclobenzaprine] Drug Allergy 8 Pharyngeal swelling (finding), Swelling [facility] (20 sources) Penicillin; Translations: [penicillin] Drug Allergy 8 Swelling (morphologic abnormality), Swelling [facility] (11 sources) penicillAMINE Drug Allergy 4 rash [facility] (2 sources) cyclobenzaprine Drug Allergy 6 [facility] Rep[facility] (1 source) traMADol Drug Allergy [facility] (1 source) traMADol Drug Allergy [facility] Rep[facility] (1 source) cyclobenzaprine Drug Allergy 4 [facility] Repository (1 source) penicillAMINE Drug Allergy 4 [facility] Repository (1 source) Penicillins Drug allergy (disorder) 4 [facility] Repository (3 sources) penicillAMINE Drug Allergy 4 Rash [facility] (3 sources) Penicillins Drug Allergy 8 Rash, Swelling [facility] Medications Current Medications Medication Drug Class(es) Dates Sig (Normalized) Sig (Original) acetaminophen 325 mg oral tablet (11 sources) Start: 01-16-2020 take 1 tablet by mouth every four hours as needed for pain Tylenol 325 mg Tab 325 mg = 1 tab(s), Oral, q4hr, PRN Pain, Refills(s) 0 Start Date: 01/16/20 Status: Ordered acetaminophen 325 mg / butalbital 50 mg / caffeine 40 mg oral tablet (11 sources) Barbiturate, Central Nervous System Stimulant, Methylxanthine Start: 07-22-2020 take 1 tablet by mouth every twelve hours as needed for headache APAP/butalbital/caf feine 325 mg-50 mg-40 mg Tab 1 tab(s), Oral, q12hr as needed for headache, Refill(s) 0, as needed Start Date: 07/22/20 Status: Ordered albuterol HFA 90 mcg/inh MDI (11 sources) Start: 01-14-2020 take 2 puff(s) by inhalation every four hours as needed for wheezing albuterol HFA 90 mcg/inh MDI 2 puff(s), Inhalation, q4hr as needed for Shortness of breath or wheezing, Refill(s) 0 Start Date: 01/14/20 Status: Ordered azithromycin 250 mg oral tablet (3 sources) Macrolide Antimicrobial Start: 02-16-2024 azithromycin 250 mg Tab 250 mg, Oral, As Directed, # 6 tab(s), Refills(s) 0 Start Date: 02/16/24 Status: Ordered cholecalciferol 0.05 mg oral capsule (5 sources) Vitamin D Start: 05-01-2024 take 1 capsule by mouth once daily cholecalciferol (Vitamin D-3) 50 MCG (1999 UT) capsule Take 1 capsule by mouth Daily 05/01/2024 Active estradiol 0.1 mg/ml vaginal cream (3 sources) Estrogen Start: 02-16-2024 Estrace 0.1 mg/g Cream 1 gm, Vaginal, As Directed, 42.5 gm, Refill(s) 3, Apply pea-sized amount around urethra every night x 3 weeks, then 2 times weekly for maintenance, [facility]/pharmacy #[id number], 170, cm, 02/16/24 9:10:00 EDT, Height/Length Dosing, 81.7, kg, 02/16/24 9:10:00 EDT, Weight Dosing Start Date: 02/16/24 Status: Ordered famotidine 20 mg oral tablet (15 sources) Histamine-2 Receptor Antagonist Start: 01-28-2022 End: 04-28-2022 take 1 tablet by mouth once daily at bedtime Pepcid 20 mg Tab 20 mg = 1 tab(s), Oral, Once a day (at bedtime), X 90 day(s), # 90 tab(s), Refills(s) 0, Pharmacy: [facility]/pharmacy #[id number], 170, cm, 01/28/22 13:40:00 EDT, [...] 12:01am hyoscyamine sulfate 0.125 mg oral tablet (5 sources) Start: 05-01-2024 take 1 tablet by mouth every six hours as needed hyoscyamine (Anaspaz,Levsin) 0.125 MG tablet Take 1 tablet by mouth every 6 (six) hours if needed 05/01/2024 Active Start: 05-01-2024 take 0.125 mg by ana th once daily Hyoscyamine Sulfate Active 0.125 MG PO Daily May 01, 2024 12:00am lisinopril 10 mg oral tablet (5 sources) Angiotensin Converting Enzyme Inhibitor Start: 03-19-2024 End: 03-19-2025 take 1 tablet by mouth in the morning lisinopril 10 MG tablet Take 10 mg by mouth in the morning. 03/19/2024 03/19/2025 Active 24 hr metoprolol succinate 50 mg extended release oral tablet (5 sources) beta-Adrenergic Serena Start: 05-01-2024 take 50 mg by mouth once daily Metoprolol Succinate Active 50 MG PO Daily May 01, 2024 12:00am Start: 02-15-2024 End: 02-14-2025 take 1 tablet by mouth every twenty-four hours in the morning metoprolol succinate XL (Toprol-XL) 50 MG 24 hr tablet Take 50 mg by mouth in the morning. 02/15/2024 02/14/2025 Active naproxen 500 mg oral tablet (14 sources) Nonsteroidal Anti-inflammatory Drug Start: 02-19-2023 take [...] Daily, # 90 cap(s), Refills(s) 3, Pharmacy: [facility]/pharmacy #[id number], 170, cm, 01/11/22 9:17:00 EDT, Height/Length Dosing, 83, kg, 01/11/22 9:17:00 EDT, Weight Dosing Start Date: 01/11/22 Status: Ordered omeprazole 40 mg Cap-DR (1 source) Start: 01-28-2022 End: 04-28-2022 take 1 capsule by mouth once daily omeprazole 40 mg Cap-DR 40 mg = 1 cap(s), Oral, Daily, X 90 day(s), # 90 cap(s), Refills(s) 0, Pharmacy: [facility]/pharmacy #[id number], 170, cm, 01/28/22 13:40:00 EDT, Height/Length Dosing, 84.5, kg, 01/28/22 13:40:00 EDT, Weight Dosing Start Date: 01/28/22 Stop Date: 04/28/22 Status: Ordered pantoprazole 40 mg delayed release oral tablet (20 sources) Proton Pump Inhibitor Start: 02-15-2023 End: 05-16-2024 take 1 tablet by mouth before mealtime pantoprazole (ProtoNix) 40 MG EC tablet Take 40 mg by mouth in the morning. Take before meals. 08/25/2023 Active Start: 04-13-2018 End: 02-25-2019 take 40 mg by mouth twice daily Pantoprazole Discontin ued 40 MG PO Twice daily November 12, 2018 1:00am February 25, 2019 6:46pm Start: 04-05-2018 End: 04-13-2018 take 1 tablet by mouth once daily Pantoprazole (Protonix) 40 mg Tablet,Delayed Release (Dr/Ec) Discontinued 40 MG PO Daily April 05, 2018 12:00am April 13, 2018 11:34am sertraline 50 mg oral tablet (5 sources) Serotonin Reuptake Inhibitor Start: 01-29-2024 take 1 tablet by mouth in the morning sertraline (Zoloft) 50 MG tablet Take 50 mg by mouth in the morning. 01/29/2024 Active Symbicort 160/4.5 inhalation aerosol with adapter (11 sources) Start: 01-14-2020 take 2 puff(s) by inhalation twice daily Symbicort 160/4.5 inhalation aerosol with adapter 2 puff(s), Inhalation, BID, Asthma Start Date: 01/14/20 Status: Ordered venlafaxine (8 sources) Serotonin and Norepinephrine Reuptake Inhibitor Venlafaxine HCl ER Active Zofran ODT 4 mg Tab-Dis (11 sources) Start: 09-20-2020 take 1 tablet by mouth every six hours as needed for nausea Zofran ODT 4 mg Tab-Dis 4 mg = 1 tab(s), Oral, q6hr, PRN Nausea/Vomiting, # 12 tab(s), Refills(s) 0, Pharmacy: [facility]/pharmacy #[id number], 170, cm, 09/20/20 16:03:00 EST, Height/Length Dosing, 87.5, kg, 09/20/20 16:03:00 EST, Weight Dosing Start Date: 09/20/20 Status: Ordered Completed/Discontinued Medications Medication Drug Class(es) Dates Sig (Normalized) Sig (Original) acetaminophen 325 mg / HYDROcodone bitartrate 5 mg oral tablet (12 sources) Opioid Agonist Start: 06-21-2019 End: 02-15-2023 take 1 tablet by mouth every six hours Hydrocodone-Acetami nophen ([place]) 5-325 mg Tablet Discontinued 1 TAB PO Q6H June 21, 2019 12:00am February 15, 2023 9:46am Start: 11-12-2018 End: 01-30-2019 take 1 tablet by mouth every four to six hours Hydrocodone-Acetaminophen ([place]) 5-325 mg tablet Discontinued 1 TAB PO EVERY 4-6 HOURS 10 3 November 12, 2018 January 30, 2019 9:43am Albuterol (6 sources) beta2-Adrenergic Agonist Start: 10-07-2018 End: 11-12-2018 [...] formoterol fumarate 0.0045 mg/actuat metered dose inhaler (6 sources) Corticosteroid, beta2-Adrenergic Agonist Start: 11-12-2018 End: 02-25-2019 take 1 puff(s) by inhalation twice daily Budesonide-Formoterol (Symbicort) 160-4.5 mcg/actuation Hfa Aerosol Inhaler Discontinued 2 PUFF INHALATION Twice daily November 12, 2018 1:00am February 25, 2019 6:46pm ciprofloxacin 500 mg oral tablet (12 sources) Quinolone Antimicrobial Start: 01-24-2018 ciprofloxacin HCl (CIPRO) 500 mg tablet dexlansoprazole 60 mg delayed release oral capsule (6 sources) Proton Pump Inhibitor Start: 02-25-2019 End: [...] day(s), # 120 cap(s), Refills(s) 11, Pharmacy: [facility]/pharmacy #[id number], 170, cm, 05/05/21 14:15:00 EDT, Height/Length Dosing, 83.1, kg, 05/05/21 14:15:00 EDT, Weight Dosing Start Date: 05/05/21 Stop Date: 04/30/22 Status: Ordered Start: 09-20-2020 take 2 capsules by m outh four times daily Bentyl 10 mg Cap 20 mg = 2 cap(s), Oral, QID, # 20 cap(s), Refills(s) 0, Pharmacy: [facility]/pharmacy #[id number], 170, cm, 09/20/20 16:03:00 EST, Height/Length Dosing, 87.5, kg, 09/20/20 16:03:00 EST, Weight Dosing Start Date: 09/20/20 Status: Ordered take 1 tablet by ana th in the morning, then take 1 tablet by mouth in the evening, then take 1 tablet by mouth at bedtime dicyclomine (Bentyl) 20 MG tablet Take 1 tablet by mouth in the morning and 1 tablet in the evening and 1 tablet before bedtime. Active take 1 tablet by ana th every eight hours Dicyclomine HCl 20 MG 1 tablet Orally Three times a day Active Comment on above: Take 20 mg by mouth before meals and at bedtime. doxycycline hyclate 100 mg oral tablet (6 sources) Tetracycline-cla ss Drug Start: 11-13-19 End: 01-31-20 19 take 100 mg by mouth twice daily Doxycycline Hyclate Discontinued 100 MG PO Twice daily 24 06November 12, 2018 1:00am January 30, 2019 9:43am hydroCHLOROthiazide 25 mg / triamterene 37.5 mg oral capsule (14 sources) Potassium-sparin g Diuretic, Thiazide Diuretic Start: 01-31-20 End: 02-16-20 23 take 1 tablet by mouth once daily Triamterene-Hydrochl orothiazid Discontinued 1 TAB PO Daily January 30, 2019 12:00am February 15, 2023 9:47am take 1 tablet by ana th every twenty-four hours Triamterene-HCTZ 37.5-25 MG 1 tablet in the morning Orally Once a day for 30 day(s) Active ibuprofen 800 mg oral tablet (6 sources) Nonsteroidal Anti-inflammatory Drug Start: 02-09-2019 End: 02-27-2019 take 800 mg by mouth three times daily Ibuprofen Discontinued 800 MG PO Three times daily February 09, 2019 12:00am February 27, 2019 3:49pm lidocaine hydrochloride 20 mg/ml mucous membrane topical solution (12 sources) Antiarrhythmic, Amide Local Anesthetic Start: 04-24-2018 LIDOCAINE VISCOUS 2 % solution losartan potassium 100 mg oral tablet (6 sources) Angiotensin 2 Receptor Serena Start: 11-12-2018 End: 02-15-2023 take 100 mg by mouth once daily Losartan Discontinued 100 MG PO Daily November 12, 2018 1:00am February 15, 2023 9:46am meclizine hydrochloride 25 mg oral tablet (6 sources) Antiemetic Start: 10-07-2018 End: 11-12-2018 take 25 mg by mouth three times daily Meclizine Discontinued 25 MG PO Three times daily October 07, 2018 1:00am November 12, 2018 4:42pm meloxicam 15 mg oral tablet (6 sources) Nonsteroidal Anti-inflammatory Drug Start: 01-30-2019 End: [...] TID, # 120 tab(s), Refills(s) 0, Pharmacy: [facility]/pharmacy #[id number], 170, cm, 04/13/21 15:38:00 EDT, Height/Length Dosing, 84.4, kg, 04/13/21 15:38:00 EDT, Weight Dosing Start Date: 04/13/21 Status: Ordered Start: 04-13-2018 take 1 tablet by ana four times daily Reglan 10 mg Tab 10 mg = 1 tab(s), Oral, QID, # 120 tab(s), Refills(s) 0, Pharmacy: [facility]/pharmacy #[id number], 170, cm, 07/22/22 14:33:00 EST, [...] / nitrofurantoin, monohydrate 75 mg oral capsule (6 sources) Nitrofuran Antibacterial Start: 06-21-2019 End: 02-15-2023 [...] day(s), # 90 cap(s), Refills(s) 1, Pharmacy: [facility]/pharmacy #[id number], 170, cm, 04/14/22 14:53:00 EDT, [...] oral tablet (20 sources) Anti-epileptic Agent Start: End: take 300 mg by mouth once daily [...] by mouth twice daily. polyethylene glycol 3350 70324 mg powder for oral solution (4 sources) Osmotic Laxative Start: 023 End: Polyethylene Glycol 3350 (Miralax) 17 gram Powder In Packet Discontinued 17 GM PO Daily February 15, 2023 12:00am May 11, 2024 8:09am predniSONE 20 mg oral tablet (6 sources) Start: End: take 40 mg by mouth once daily in the morning Prednisone Discontinued 40 MG PO Every morning 10 October 07, 2018 1:00am November 12, 2018 4:42pm administer with food or milk promethazine hydrochloride 25 mg oral tablet (20 sources) Phenothiazine Start: End: take 25 mg by mouth every four to six hours Promethazine Discontinued 25 MG PO EVERY 4-6 HOURS 10 October 26, 2022 1:00am February 15, 2023 9:46am pyridostigmine bromide 60 mg oral tablet (3 sources) Start: End: take 60 mg by mouth twice daily Pyridostigmine [place] Discontinued 60 MG PO Twice daily 60 March 31, 2023 12:00am May 01, 2024 9:31am sucralfate 1000 mg oral tablet (16 sources) Aluminum Complex Start: End: take 1 [...] 8:47pm traMADol hydrochloride 50 mg oral tablet (6 sources) Opioid Agonist Start: 02-27-2019 End: 06-21-2019 take 50 mg by mouth every four to six hours Tramadol Discontinued 50 MG PO EVERY 4-6 HOURS 20 February 27, 2019 12:00am June 21, 2019 1:45pm Vitamin D (6 sources) Start: 04-26-2024 End: 05-01-2024 vitamin d [...] depressed mood] Onset: 07-13-2023 Chronic Administrative/social admission (3 sources) Patient encounter status; Translations: [Dietary counseling and surveillance] 07-22-2023 Episodic Asthma (8 sources) Reactive airway disease; Translations: [Unspecified asthma, uncomplicated] Chronic Biliary tract disease (11 sources) Gallstone 01-08-2020 Episodic Calculus of urinary tract (11 sources) Kidney stone 05-10-2019 Episodic Cardiac dysrhythmias (6 sources) Palpitations; Translations: [Palpitations] Onset: 02-15-2024 Episodic Coagulation and hemorrhagic disorders (2 sources) Von Willebrand's disease; Translations: [VON WIL[place]BRAND DISEASE] Onset: 02-04-2022 Chronic Epilepsy; convulsions (11 sources) Seizure 07-10-2020 Episodic Esophageal disorders (20 sources) Pearce's esophagus; Translations: [Pearce's esophagus without dysplasia] Onset: 01-11-2022 Chronic Essential hypertension (16 sources) Hypertensive disorder; Translations: [Essential (primary) hypertension] Onset: 11-30-2022 01-22-2020 Chronic Fluid and electrolyte disorders (3 sources) Dehydration; Translations: [Hypokalemia] Onset: 04-07-2022 Episodic Genitourinary symptoms and ill-defined conditions (1 source) Incontinence 02-21-2024 Chronic Genitourinary symptoms and ill-defined conditions (20 sources) History of urinary tract infection; Translations: [Proteinuria] Onset: 11-30-2022 02-24-2021 Episodic Headache; including migraine (12 sources) Migraine; Translations: [Migraine, unspecified, not intractable, without status migrainosus] Onset: 04-07-2022 05-10-2019 Chronic Heart valve disorders (12 sources) Mitral valve prolapse; Translations: [Nonrheumatic mitral (valve) prolapse] Onset: 11-04-2022 09-08-2019 Chronic Intestinal obstruction without hernia (9 sources) Partial intestinal obstruction, unspecified as to [...] Translations: [Moderate protein-calorie malnutrition] 07-22-2023 Chronic Osteoarthritis (11 sources) Arthritis 05-10-2019 Chronic Other aftercare (1 source) Other half-way (current) drug therapy; Translations: [OTH [facility] CURRENT DRUG THERAPY] Onset: 11-30-2022 Episodic Other diseases of bladder and urethra (12 sources) Traumatic urethral stricture; 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, female] Onset: 02-16-2024 02-24-2021 Episodic Other disorders of stomach and duodenum (20 sources) Gastroparesis syndrome; Translations: [Gastroparesis] Onset: 04-14-2022 05-26-2021 Episodic Other disorders of stomach and duodenum (1 source) Gastroparesis; Translations: [Gastroparesis] Onset: 08-25-2023 Episodic Other endocrine disorders (2 sources) Hypoglycemia; Translations: [Hypoglycemia, unspecified] 06-20-2024 Chronic Other gastrointestinal disorders (11 sources) Diarrhea 05-26-2021 Episodic Other gastrointestinal disorders (12 sources) Heartburn; Translations: [Heartburn] Onset: 04-14-2022 07-10-2020 Episodic Other gastrointestinal disorders (1 source) Digestive system finding; Translations: [Other specified symptoms and signs involving the digestive system and abdomen] Onset: 04-14-2022 Episodic Other gastrointestinal disorders (7 sources) Irregular bowel habits 04-14-2022 Episodic Other gastrointestinal disorders (12 sources) Constipation; Translations: [Constipation, unspecified] 09-20-2022 Episodic Other gastrointestinal disorders (8 sources) Esophageal dysphagia; Translations: [Dysphagia, unspecified] Episodic Other gastrointestinal disorders (5 sources) Constipation, unspecified; Translations: [CONSTIPATION UNSPECIFIED] Onset: 08-17-2022 Episodic Other gastrointestinal disorders (4 sources) Dark stools 09-20-2022 Episodic Other gastrointestinal disorders (4 sources) Hard stool 09-20-2022 Episodic Other gastrointestinal disorders (6 sources) Dysphagia, unspecified; Translations: [Dysphagia, unspecified] Onset: 05-06-2023 Episodic Other gastrointestinal disorders (8 sources) Dysphagia; Translations: [Dysphagia, unspecified] 05-16-2023 Episodic Other gastrointestinal disorders (3 sources) Disorder of abdomen; Translations: [Peritoneal adhesions (postprocedural) (postinfection)] 04-26-2024 Episodic Other gastrointestinal disorders (3 sources) Peritoneal adhesions (postprocedural) (postinfection); Translations: [Peritoneal adhesions (postoperative) (postinfection)] 04-26-2024 Episodic Other injuries and conditions due to external causes (11 sources) Bezoar 05-26-2021 Episodic Other injuries and conditions due to external causes (1 source) Foreign body in digestive tract; Translations: [Foreign body in stomach, sequela] Onset: 01-28-2022 Episodic Other injuries and conditions due to external causes (10 sources) Foreign body in stomach; Translations: [Foreign [...] Chronic Other nutritional; endocrine; and metabolic disorders (3 sources) Obesity; Translations: [Obesity, unspecified] 08-17-2023 Chronic Other nutritional; endocrine; and metabolic disorders (12 sources) Body mass index 25-29 - overweight; Translations: [Overweight] 10-18-2019 Episodic Other nutritional; endocrine; and metabolic disorders (2 sources) Overweight; Translations: [Overweight] Onset: 02-15-2024 Episodic Other screening for suspected conditions (not mental disorders or infectious disease) (7 sources) Encounter for screening mammogram for malignant [...] unspecified] Onset: 12-01-2023 Episodic Residual codes; unclassified (3 sources) History of hernia repair; Translations: [Other specified postprocedural states] 08-17-2023 Episodic Screening and history of mental health and substance abuse codes (3 sources) Personal history of nicotine dependence; Translations: [PERSONAL HISTORY OF NICOTINE DEPEND] Onset: 11-30-2022 Episodic Spondylosis; intervertebral disc disorders; other back problems (4 sources) Backache 09-20-2022 Episodic Sprains and strains (15 sources) Low back strain; Translations: [Strain of [...] [LOW BACK PAIN, UNSPECIFIED] Onset: 04-07-2022 Unclassified (3 sources) Asymptomatic microscopic hematuria 02-16-2024 Urinary tract infections (9 sources) Urinary tract infectious disease; Translations: [Urinary [...] Test Name Value Interpretation Reference Range Facility Glucose (Bld) [Mass/Vol]Orde red By: Beverly Clemons on 06-20-2024 Glucose Blood, POC 101 mg/dL [facility] - Hematology and Cell countson 06-20-2024 HbA1c (Bld) [Mass fraction] 5.8 % [facility] No Panel InformationOrdered By: Beverly Clemons on 06-20-2024 [facility] Office Visiton 05-14-2024 Follow-up visit [id number] Arielle Cardoso 1970 F Date Provider Department Center 05/14/2024 74237-BYTSOVEDISON KINCAID [facility] Family History Problem Relation Age of Onset Heart attack Father Family Status - Relation Status Age at Father Level of Service:04972 [place] OFFICE/OUTPATIENT ESTABLISHED MOD MDM 30 MIN Reason for Visit and Comments: Hypertension [410256] - Patient here for 2 mo follow up. She was started on lisinopril 10mg daily at last visit. She presented to the ED last month for abdominal pain. EKG was done and showed bradycardia. Palpitations [014790] - Not as bad, still has them Shortness of Breath [316113] - Improving Normal [facility] Maury 05-11-2024 L Specimen: [id number] Received: 05/11/24 Status: XAVI Francis Num: [id number] Spec Type: Surgical Subm Dr: Jennie Ayon MD Tissues: A GASTRIC FOR HP (GASTRIC R/O H PYLORI) B Esophagus Biopsy (ESOPHAGUS BX R/O BARRETTS) Procedures: HE/4, Gross/Micro L4/2, H PYLORI Age/ Patient Sex Location Account Attending Physician Constantino Cardoso 53/F [id number] Jennie Ayon MD SPEC NUM: [id number] RECD: 05/11/24 STATUS: XAVI FRANCIS NUM: [id number] HAYDEN: 05/11/24 [facility] DR: Jennie Ayon MD ENTERED: 05/11/[address] [facility] [address]: SPEC TYPE: Surgical DEPT: S ENTERED BY: [id number] RECV BY: [id number] ORDERED: HE/4, Gross/Micro L4/2, H PYLORI ORDERED: HE/4, Gross/Micro L4/2, H PYLORI Supplemental Report Addendum 2 Entered: 05/18/24 Supplemental to add CPT code of immunostain: A, CPT: 27721 Addendum Signed (signature on file) Robby Smyth MD 05/18/241707 Addendum 1 Entered: 05/18/24 Supplemental for findings of H. pylori immunostain: A, -H. pylori immunostain with appropriate control is negative for identified Helicobacter organism or infection Specimen: [id number] Received: 05/11/24 Status: XAVI Francis Num: [id number] Spec Type: Surgical Subm Dr: Jennie Ayon MD Tissues: A GASTRIC FOR HP (GASTRIC R/O H PYLORI) B Esophagus Biopsy (ESOPHAGUS BX R/O BARRETTS) Procedures: HE/4, Gross/Micro L4/2, H PYLORI Patient: Constantino Cardoso [id number] (Continued) Specimen: [id number] Received: 05/11/24 (Continued) Supplemental Report (Continued) Signed (signature on file) Robby Smyth MD 05/17/24 1326 Specimen: [id number] Received: 05/11/24 Status: XAVI Chua: [id number] Spec Type: Surgical Subm Dr: Jennie Ayon MD Tissues: A GASTRIC FOR HP (GASTRIC R/O H PYLORI) B Esophagus Biopsy (ESOPHAGUS BX R/O BARRETTS) Procedures: HE/4, Gross/Micro L4/2, H PYLORI Patient: Constantino Cardoso [id number] (Continued) Specimen: [id number] Received: 05/11/24 (Continued) Supplemental Report (Continued) Addendum [...] are performed supporting the above interpretation Specimen: [id number] Received: 05/11/24 Status: XAVI Larry Num: [id number] Spec Type: Surgical Subm Dr: Jennie Ayno MD Tissues: A GASTRIC FOR HP (GASTRIC R/O H PYLORI) B Esophagus Biopsy (ESOPHAGUS BX R/O BARRETTS) Procedures: HE/4, Gross/Micro L4/2, H PYLORI Patient: Constantino Cardoso [id number] (Continued) Specimen: [id number] Received: 05/11/24 (Continued) Signed (signature on file) Robby Smyth MD 05/17/24 1326 Specimen: [id number] Rece (more content not included)... Normal [facility] Reminderson 04-09-2024 Reminders Reminders From: Ani Jackson To: EU - Administrative; Sent: 02/16/2024 09:54:18 EDT Show up: 03/05/2024 09:54:00 EDT Subject: Ambulatory Reminder Due Date/Time: 05/20/2024 09:54:00 EDT Reminder/Recall Patient needs scheduled for a 3 month f/u with AO in [facility] due back mid May. [facility] FOR PATIENT TO CALL AND SCHEDULE APPT Pt called back and scheduled appt. Normal [facility] Office Visiton 03-19-2024 Follow-up visit [id number] Arielle Cardoso 1970 F Date Provider Department Center 03/19/2024 95165-HSDDONEDISON KINCAID Family History Problem Relation Age of Onset Heart attack Father Family Status - Relation Status Age at Father Level of Service:32916 [place] OFFICE/OUTPATIENT ESTABLISHED MOD MDM 30 MIN Normal [facility] Coding Summary.on 02-25-2024 Coding Summary. XHBCBisd92EDq0bHg+PG hlYWQ+P W8HZOWqO94efHCpaE2gW4ACRCfX ZgjpTEINRJjMUlSlqxHdNF5vsFD jZXJu IC8+QX6hAGZpJjfuwTIdx6W1mBD 5J37csb5xDGmcdPW0WUVwOzOcph pll3ltqKu6MYzjAcqtNuEj HBYcrE58SBP4yX67Re01lYEhvQO ca0ibgBr0DvAzMHPoTRU8iVcqIP sqm3BeZGLdB84mxPAxj5T9 AOHklChsbFJeIlDqvUF9lE1tINg evzuoo6zbvdliWvf8kx72pCPba1 Q2eOP1W2CsviA4DPRzbELy TetxgPNItY2nrvxjz4mlfbvqSwX nYQApQXb7KDx9GAZjfBurJkNySL 65WRT5JJPezkDxA7MrUPLu mVapCnC5l3J1Ot3SR3GPAvpoP7G NTUFSWTwvdGQ+YZ12pv80R2IwRb fnFrc0SNAeDMA3hEU1qJ2c AKUeUShxr9T4zTG1A5QmwsRsqw1 ze1nqUGJhNOthK17unXWls6L4BU LgwNL2BLNihZacHlLqeH66 Oyc+OQObgXifa4DlRuyff7eil8q ngDk3NmgoKIUyfwZbuMhtGIH7c5 BdJq8aFJOxnFW9wGL6uQ9n GkUrLbF5IEtzM628JqSkdGJnNkp iH98nR2GjvNC+LZNmMyo9MXAkuT pjNV9kL3FsOCWlfdqigOQx qZrvGC7oSBDtrxthGQVcnS9vNPX bK6k0ItEpLqM0YUogI7QvFLWqdm zyBk68wC0rTbHuKkF5SAyu L4LqwoI1VEBuxAKpTIezUJR1F54 mq8W3WIVaPUUqARW6wEM7oL1npL lnbjogbGVmdDsgdmVydGlj KUpiKMufA070XROonTrxEgBoFIi uZyBEYXRlOiAgMDYvMjIvMjAyND wvdGQ+CYSlWMU7lRlwBYWv rHFvAEmxFx3vqKrvoKwzHR8fJYT rtfrlXHDnpM0pWUHtgSRakVfsKZ 9lTODujyguf876WkXpTFM9 KGJwgNJnN4KisF4sQaBnTUSiAUI wN9UwvCLmLRwqX535DCciJvY3NE RnmlYbS4AwZQKchLyzWtE7 b7O2Yj0Ma5NtvzymS6PgjKYwRkO lMbhgLTf6X3TnNxjsnHF+PC90YW GmBC06JDc1NXJ3gNhxWNhx HUAqM2SlxD8cQfZlVSUhRKNjMwe +PHRhYmxlIHdpZHRoPScxMDAlJy JcqGwbTC6wTb8pDVXlUSJj bYgoiNGbQpUym3giDMEwCKfpYN1 ecHjrM2AbtAT6VBQdw6g4Gt00Q8 2mK6TbiAR+FXPwaML2dQG6 zS7dGuSgSeH0ATnnW597UlMhyGV zDvnpm8img8ggiBh3FpX4SAXhvy NtiYdsKOP9y0AfXp80F88w IHdpZHRoPSIxNSUiIHZhbGlnbj0 ekF3vSp7+KVYtnMJ5sED1rC3qSe CzZeH7MTmxF936TaShaVXr Wrlpj7zwh9cvdWh2PpSaAJJpscD olXweCEQ3o2RqRo07U5AwtNigt8 HvLhs0qi56bKFaf8B6oSK2 B9RwLAXzlvhzhHNfqBtuIR6bYBA qnpzgTIVnsG8iIIKoV5l6VpRmKq G0QTgwH1JsbuQ1NHLltQOr WMPprOEUpP3eygizo2wxhthsTiD xSQNfOTz1JBy8GEFsxBvmQfGaQW R8GvA1PPI5aPVbbU1eoGjb bhahvV7cQis+PFV4cBJypBUYPV9 lOjwvdGQ+ENToNWA8oCfhZJqtLA MniN6oJVEcC8z1SwUbOlH8 JDfaL0BfwnB2PRQrmBVsYLFdeOH VzX4quazyn0uykzvrIoPrSVWaID d9NCe1SNFtbYqxYiMxORQ0 ElQ9TTE6bMGwzD5qdBptfdycdL1 wOyc+BewruLrzHVR9PHh1V6DrRo a3YFNakWanWK3uoYOyPRsx Hq0bxIqzqDozXO1eDGYatawic25 0RrAqe7keYHXieOGyCCnqLBV3M8 9zl9U5JOSzTWUhEAT6oET6 oV1sjGeyioumvSYiuFyeieVurVm tZBurAPeoW085XOKkdMdjNeMqUH r7H7BaLzb2WFHuuMxhHN2a hRUfTQmsVs7cnBbypOkrQP2mEOA llxwup334UbNqs2ikZCBroJKmXX gnJCY2T82fz3V1ASWyYLUe WXZ1kLH6qS7jjMdlibuzgDIyfOr kxbYdzVyvNKrvWWvyT750LMUuwC wrBmCrsBp2T3OzMye4WPIg vVrcCO6jdWQtEAqfTp5zjTcrjYi cUS1iRTLsiklkf381YqRwd3fdDT HwrNNuBTvqKRL5W99do3W8 GMWhKXHoVJS3vDM1uV7alHduruh gbGVmdDsgdmVydGljYWwtYWxpZ2 46IHRvcDsnPlBhdGllbnQg OSmeBJd7L0RjBykzeCK+WL48LQR eLA09jNLbwGRaw4ywrVo2IhKjQW RuGDS1wMkpLJxou4UaFCJs Y17mbFVlt3G0EZLjkCazeBVfXaP egNE9rY2gXAqnlatgv2dvxsgmVk sdc5cknc91kM50E81oXGow PSTfTVFkIQYoPTOesRablg2cuB1 wIi8+OEChaLS6wOA7oM1qPIDmUa I6JIhcH441XcMjjDPpPedv w8hkf5kjeTe2GpL0LQSbkuZbcBo aXRJ1e6GwUi21Y42xWJszBAEpYH JxRLNyAITojBqyyw8rdA5p Ii8+CETcfVE4mKA3qF2cEtRvIaA 0AFnqW539KgMfsRFhHdweF71kE8 JvdXA+HVMyEth5WHDwcGpt MG5uoMWeVQxeGi6zWZL3KwNnOnX hZUxyB3JbGVZqritcvpwgvVO7EP NoHCUwgF19Nz9rmBvbUKIw fILOgB1ecgsmd4ujdlfpKaOfIGJ fBLv3ZUu1AEFseWuvAnUoLHW3Vd B4OIN7yHAuiP5edYsvbvli hD4nA1FyVLZbbuzaZe90kU5eFjO tZzV2AExaDpl+U1BALTjgPDYAHS rRMR5SEVUAZW68OJ32cOGl d4P3gVJ0G1EcMQIfkfprpgxqgMP 3HGEdTZEqkM98nWTjQYkxEx8wg3 V5p495QQEcOESzwO76Ok1w hGidPXCppGABnV8ghjpwf8dnskj iPxGiTWPgVFz0KQw8TMNzbIivEk RfUJJ4JlR4ART5zCLtnW8a dIwomvfplV7lBrb+MDkvMjMvMTk 3MDwvdGQ+SEXzCLN8yWbsAOqcVT JvcS0hMPVmY2u5WxMePyC7 IHqhP9XrLWUmhbstKv37pH2yOdQ lJpO9SUbaV0CftvO2CWRtjDYhNA vxKKW9K93dw5K2ISHgWEKz ISQ4fTH9fO8slOggwpyyjKLwkCm imhTewMljLUjqPNgtK121CKVqsK rsBnYkNNquITBeJO93EP23 yIGef1D0hLX1I9WeXDEepagopep hdSY7ANLfLOBuvL05gLQuUAysYx 7ci7U9u875GPMmARLsmC73 Br8gvIiuFRMgoQWBuZ2marlea2s blrvfOgSeKVIdVMn2LMz2NPSvyD jrUqKiNCS0KuL1KKO5vQYx sX8npBwexpfmcI8jFqf+RmVtYWx rUW66ZJ28aJIrc6G7vLZ5G3PvCF RygjytvimfoKW0RYIcEAOi xS69cVTvMKdeBu8gg7J7d473HQG nIYTpyF52Qh4tjRkrIZXslHHCqE 3ectpca1arccgrHvJtTXQl ROn8VWc8QFEbeRrjKoSfNJR1MmW 7BYV9dMKmgU0fwRtyvtzmcD2rBb c+GLXeWVNcr1Wsx6DdCZ35 SU70O6PpTbgjnZLagJG+PHRhYmx lIHdpZHRoPScxMDAlJyBzdHlsZT 6jBk9wSWNwLXZijYchmHZa GsLbs7bpOKNzBEgaQY1klDzrO8K iqJE0IPVkc0w4Qv15T53uW8CzcO A+KWKkhGQ7lCB0uX5lAhDf IkW6YPfcB065OtZneINnCwglo6p ab3wtqNt0HyVeKITzrpWkwGlqPZ F6p6WoJa51C10vJNloILEv YNPjHDEtLQPpdCppsc3tdN5uSc4 +HVPomJP2jES4tO6iUiBwLlA8UU otV040RvOnbRVxIevqP95p I5GkaOQ+MSCmCjt0RJPxxQgfCW4 dgGXwCPfmHx9cGQV0KmPyOlRzEH voZ0QbBJChceezlohirSG3 ZZFwXPJkiT82Aa5shSdaQk2bIIW fECX3IOMxrXSkV9BxpI9gSfVeIK QkENKhO7MibUErMZcrG127 HGlcThR1RZYoynBhR9MgLKZlkWs bKkV8l4W0Ay0DlRwlvDTtKQ3cXv ZvTJe0W0GgCin2IUQwiXye MI7hoLKmCBibMx4hiMcfbRolZA0 gDFPgcxisl312DgJce3zmJEZkbO RkSRjmIJI6A88kj6U6FXYe ZMEcUJD6yLJ6nK2znSgtrguhmKK gbIzhpyBjiGdvAMwmZZrsB558RM OluTjnChFOByu7X5ViFun3 QHCzyHbsOM0zbAXoRIteLq6pzZr fkDrmZH4eTKCbjluys390AlIes7 zrKCEnuCRdFUswCCG6W00k y0O7ZPWaVHDuSHH3uGO3sT4bnKq nbjogbGVmdDsgdmVydGljYWwtYW urF313WIHuqHfsHr4TTzw5 N3KzQqm6AXZyqSeaZO5hqSOpLUo iPm1gePwjkPfqVP1vAJBeuhwdx1 03PxGkk7ikLVBynLYyDWgf XVN9E39oe1Z8GZQkWFWxNZM7nFT 7vY4feBkmcylryCAzaIbekjFpsZ hmWTptCBhkU625GGKnxTff PlBheWVyOjwvdGQ+DZ25kb37M7X qLfmsCyy9ARMeENM9tJA1bB0qHV RcYTefj8K8hPF3Q1GnbtNe qf9dp9nwPBXkR (more content not included)... [facility] Patient Educationon 02-21-20 24 Patient Education Obstetrics and Gynec ology Urinary [...] this condition includes: ? Antibiotic medicine. ? Qlev-zys-ywsfqps medicines to treat discomfort. ? Drinking enough [...] these instructions at home: Medicines ? Take wqhz-oqa-mqpgefp and prescription medicines only as told by [...] health care provider. Document Revised: 04/03/2021 Document Revbeverly (more content not included)... Normal [facility] Urology Office/Clinic Noteon 02-21-2024 Urology Office/Clinic Note [...] with voice recognition artificial intelligence software, specifically Snippets, flatev and or Wel[employer]. Substitutions may have occurred due to the [...] Flank Pain: none. Bladder: nonpalpable. Assessment/Plan Former KAVEH pt, last OV 02/24/21 bbsq 20 1. [...] yes avoids baths/hot tubs yes avoids scented [employer] products yes urinates after sexual activity yes [...] 8% of patients. (more content not included)... [facility] Comment on above: Result Comment: Elec [...] Locations R1: This test was performed at: [facility], [address] [place] [address], [address] , , [facility] Comment on above: Performed By: #### 2 [id number] #### [facility] [address] [place] [address] Lab Reportson 02-17-2024 Lab Reports [id number]#1.00TIFF Normal [facility] Lab Reports [id number]#1.00TIFF Normal [facility] Lab Reports [id number]#1.00TIFF Normal [facility] Lab Reports [id number]#1.00TIFF Normal [facility] RAD - Ultrasound Reporton RAD - Ultrasound Report [id number]#1.00TIFF Normal [facility] Screenson 02-17-2024 Screens [id number]#1.00TIFF Normal [facility] URINALYSISOrdered By: SYSTEM SYSTEM on 02-16-2024 Bilirubin Ql (U) Negative Normal Negativemg/ dL [facility] UA Auto SS Clarity (U) Clear (02/16/24 10:01 AM) Normal Clear [facility] UA Auto SS Color (U) Light-Yellow 1 (02/16/24 10:01 AM) Normal Yellow [facility] UA Auto SS Comment on above: Interpretive Data: M icroscopic readings are only performed on those samples that meet specific criteria set forth by [facility]. Epithelial cells.squamous Auto (Urine sed) [#/Area] 0-2 graded/HPF Invalid Interpretation Code [facility] UA Auto SS Glucose Ql (U) Negative Normal Negativemg/ dL [facility] UA Auto SS Hemoglobin Auto test strip (U) [Mass/Vol] 1+ mg/dL Invalid Interpretation Code Negativemg/ dL [facility] UA Auto SS Ketones Auto test strip Ql (U) Negative Normal Negativemg/ dL [facility] UA Auto SS Leukocyte esterase Auto test strip Ql (U) 75 Morgan/uL Morgan/uL Invalid Interpretation Code NegativeLeu /uL [facility] UA Auto SS Mucus Auto Ql (U) Trace graded/LPF Normal Negati vegra ded/LPF [facility] UA Auto SS Nitrite Auto test strip Ql (U) Negative Normal Negativemg/ dL [facility] UA Auto SS pH (U) 5.5 *NA* (02/16/24 10:01 AM) Invalid Interpretation Code 5.0 - 9.0 [facility] UA Auto SS Protein Ql (U) Negative Normal Negativemg/ dL [facility] UA Auto SS RBC Ql (U) 0-3 graded/HPF Normal 0-3graded/H PF [facility] UA Auto SS Specific gravity (U) [Rel density] 1.021 *NA* (02/16/24 10:01 AM) Invalid Interpretation Code 1.005 - 1.030 [facility] UA Auto SS Urobilinogen (U) [Mass/Vol] Negative Normal Negativemg/ dL [facility] UA Auto SS WBC Auto (Urine sed) [#/Area] 0-5 graded/HPF Normal 0-5graded/H PF [facility] UA Auto SS URINALYSISOrdered By: Kimberly Santos on 02-16-2024 UA Spec Desc Clean Catch (02/16/24 10:01 AM) Normal [facility] UA Auto SS Urinalysis with Microon 02-03 Bilirubin Ql (U) Negative Normal Negative [facility] Comment on above: Performed By: #### 4 [id number] #### [facility] [address] [place] [address] Clarity (U) Clear Normal Clear [facility] Comment on above: Performed By: #### 4 [id number] #### [facility] [address] [id number] Color (U) Light-Yellow Normal Yellow [facility] Comment on above: Result Comment: Micr oscopic readings are only performed on those samples that meet specific criteria set forth by [facility]. Performed By: #### 4 [id number] #### [facility] [address] [id number] Epithelial cells.squamous Auto (Urine sed) [#/Area] 0-2 Invalid Interpretation Code [facility] Comment on above: Performed By: #### 4 [id number] #### [facility] [address] [place] [address] Glucose Ql (U) Negative Normal Negative [facility] Comment on above: Performed By: #### 4 [id number] #### [facility] [address] [place] [address] Hemoglobin Auto test strip (U) [Mass/Vol] 1+ mg/dL Abnormal Negative [facility] Comment on above: Performed By: #### 4 [id number] #### [facility] [address] [place] [address] Ketones Auto test strip Ql (U) Negative Normal Negative [facility] Comment on above: Performed By: #### 4 [id number] #### [facility] [address] [place] [address] Leukocyte esterase Auto test strip Ql (U) 75 Morgan/uL Abnormal Negative [facility] Comment on above: Performed By: #### 4 [id number] #### [facility] [address] [place] [address] Mucus Auto Ql (U) Trace Normal Negative [facility] Comment on above: Performed By: #### 4 [id number] #### [facility] [address] [place] [address] Nitrite Auto test strip Ql (U) Negative Normal Negative [facility] Comment on above: Performed By: #### 4 [id number] #### [facility] [address] [place] [address] pH (U) 5.5 [pH] Invalid Interpretation Code 5.0-9.[address] [facility] Comment on above: Performed By: #### 4 [id number] #### [facility] [address] [place] [address] Protein Ql (U) Negative Normal Negative [facility] Comment on above: Performed By: #### 4 [id number] #### [facility] [address] [place] [address] RBC Ql (U) 0-3 Normal 0-[address] [facility] Comment on above: Performed By: #### 4 [id number] #### [facility] [address] [place] [address] Specific gravity (U) [Rel density] 1.021 Invalid Interpretation Code 1.005-1.[address] [facility] Comment on above: Performed By: #### 4 [id number] #### [facility] [address] [place] [address] Urobilinogen (U) [Mass/Vol] Negative Normal Negative [facility] Comment on above: Performed By: #### 4 [id number] #### [facility] [address] [place] [address] WBC Auto (Urine sed) [#/Area] 0-5 Normal 0-[address] [facility] Comment on above: Performed By: #### 4 [id number] #### [facility] [address] [place] [address] Type of Urine collection method Clean Catch Normal [facility] Comment on above: Performed By: #### 4 [id number] #### [facility] [address] [place] [address] Office Visiton 02-15-2024 Follow-up visit [id number] Arielle Cardoso 1970 F Date Provider Department Center 02/15/2024 54911-YNETVWEDISON YING MICHAEL [facility] Family History Problem Relation Age of Onset Heart attack Father Family Status - Relation Status Age at Father Level of Service:44544 [place] OFFICE/OUTPATIENT NEW MODERATE MDM 45 MINUTES Normal [facility] ANES POSTPROC EVALon 023 ANES POSTPROC EVAL HNO ID: [id number] Author: Carlota Jeffrey MD Service: ? 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 ANES PRE-OPon 08-25-2023 ANES PRE-OP HNO ID: [id number] Author: Carlota Jeffrey MD Service: ? Author [...] August 25, 2023 TIME: 11:46 AM CSN: [id number] Normal [facility] HISTORY PHYSICALon HISTORY PHYSICAL HNO ID: [id number] Author: Gavi Bourgeois MD Service: General Surgery [...] DATE: August 25, 2023 TIME: 6:57 AM [facility] NURSING PROGon 08-25-2023 NURSING PROG HNO ID: [id number] Author: Melody Walter RN Service: Nursing Author [...] None Electronically Signed By: Melody Walter RN [facility] NURSING PROG HNO ID: [id number] Author: Pamela Osuna RN Service: ? Author [...] By: Pamela Navarro RN In Department: GASTROENTEROLOGY [facility] Magda 07-22-2023 [facility] Telephone ([employer]) CONSTANTINO CARDOSO ([id number]) 1970 F Date Time Provider Department 07/22/23 EVELYN BLACKBMJudith During your visit today, we recorded the [...] Encounter Status:Closed by EVELYN BLACK on 07/22/23 [facility] ANES POSTPROC EVALon 023 ANES POSTPROC EVAL HNO ID: [id number] Author: Sly Carter MD Service: ? Author [...] Marques Bradley MD; Amanda Bernard APRN.CRNA; Sly Carter MD Responsible Provider: Sly Carter [...] July 14, 2023 TIME: 12:26 PM CSN: [id number] Normal [facility] ANES PRE-OPon 07-14-2023 ANES PRE-OP HNO ID: [id number] Author: Sly Carter MD Service: ? Author Type: Anesthesiologist Type: Anesthesia Preprocedure Evaluation Filed: 07/14/2023 9:19 AM Note Text: ANESTHESIOLOGY DAY OF SURGERY NOTE : 1970 Procedure Information Date/Time: 07/14/23929 Scheduled providers: Marques Bradley MD; Amanda Bernard APRN.CRNA; Sly Carter MD Procedure: EGD - THERAPEUTIC, [...] 0834 Resp Temp 36.4 ?C (97.5 ?F) 07/14/23 0834 SpO2 97 % 07/14/2334 Outpatient Medications as of 07/14/2023 Medication Sig [...] July 14, 2023 TIME: 9:11 AM CSN: [id number] [facility] EGD - THERAPEUTIC, EUS, OR T UBE INTERVENTIONSon 07-14-2023 [facility] HISTORY PHYSICALon HISTORY PHYSICAL HNO ID: [id number] Author: Raúl Quintero MD Service: General Surgery [...] medications for this visit. REVIEW OF SYSTEMS: [employer] SUPPORT: Negative for CVA, Negative for TIA Respiratory: [...] 14, 2023 TIME: 9:[address] [facility] NURSING PROGon 07-14-2023 NURSING PROG HNO ID: [id number] Author: Mónica Spaulding RN Service: Nursing Author Type: Registered Nurse Type: Nursing Progress Note Filed: 07/14/2023 11:21 AM Note Text: 1121: Dr. Mehrdad Carter paged : Patient Constantino Cardoso in post bed 10: Complaining of 10/10 abdominal pain (gas), mild nausea. Any further orders? Thanks! Mari Spaulding RN BSN [facility] NURSING PROG HNO ID: [id number] Author: Mónica Spaulding RN Service: Nursing Author [...] By: Mónica Spaulding RN BSN [facility] NURSING PROG HNO ID: [id number] Author: Candace Jaramillo RN Service: ? Author [...] Candace Jaramillo RN In Department: GASTROENTEROLOGY [facility] SURGICAL PATHOLOGYon 023 ADDENDUM 1: [facility] Comment on above: Order Comment: Speci men Type: TISSUE SPECIMENOrdering Facility: [facility] Address: [address] [place] [address] Result Comment: Give n the background of chronic gastritis a Helicobacter pylori immunostain was performed on block A and is negative for Helicobacter pylori organisms. AEB 07/20/2023 Laboratory Developed Test (LDT) Disclaimer: Performance characteristics of immunohistochemical, immunofluorescent and chromogenic in-situ hybridization tests have been determined by the performing laboratory within [facility] [place] ([facility], [facility], [facility], [facility], [facility], [facility], or [facility]) in a manner consistent with CLIA [...] #### S ####[facility] LABCLIA [id number] [place] [address] [place] CASE REPORT [facility] Comment on above: Order Comment: Speci men Type: TISSUE SPECIMENOrdering Facility: [facility] Address: [address] [place] [address] Result Comment: Surg [facility] Pathology Report Case: [id number] Authorizing Provider: Marques Bradley MD Collected: 07/14/2023 10:42 AM Ordering Location: Gastroenterology Received: 07/14/2023 07:34 PM Pathologist: Marilou Zacarias MD Specimen: STOMACH BIOPSY, R/O H.Pylori Performed By: #### S ####[facility] LABCLIA [id number] [address] DIAGNOSIS COMMENT Immunohistochemical stain for Helicobacter pylori is pending and will be reported as an addendum. [facility] Comment on above: Order Comment: Speci men Type: TISSUE SPECIMENOrdering Facility: [facility] Address: [address] [place] [address] Performed By: #### S ####[facility] LABCLIA [id number] [facility] FINAL DIAGNOSIS Normal [facility] Comment on above: Order Comment: Speci men Type: TISSUE SPECIMENOrdering Facility: [facility] Address: [address] [place] [address] Result Comment: Velma scott, biopsy: - Chronic inactive gastritis. See comment. AEB/dkm 07/18/2023 Performed By: #### S ####[facility] LABCLIA [id number] [address] [place] FINAL PERFORMING LAB Normal [facility] Comment on above: Order Comment: Speci men Type: TISSUE SPECIMENOrdering Facility: [facility] Address: [address] [place] [address] Result Comment: Diag nostic interpretation performed at [place] [address] CLIA# [id number] Medical Representative: Maurisio Ritchie M.D. Performed By: #### S ####[facility] LABIA [id number] [address] [place] GROSS DESCRIPTION Normal [facility] Comment on above: Order Comment: Speci men Type: TISSUE SPECIMENOrdering Facility: [facility] Address: [address] [place] [address] Result Comment: A. S TOMACH BIOPSY Received in formalin are two pieces of hager, soft tissue aggregating to 0.5 x 0.2 x 0.2 cm. Totally submitted in one cassette. Two Gross examination performed at [address] July 14, 2023 11:10 PM Performed By: #### S ####[facility] LABIA [id number] [address] [place] Lipase Levelon 06-06-2023 Lipase [Catalytic activity/Vol] 33 U/L Normal 13-[address] [facility] Comment on above: Performed By: #### 2 [id number] #### [facility] [address] [place] [address] [facility] CONSTANTINO CARDOSO ([id number]) 1970 F Date Time Provider Department 05/27/23 HAMULAK, EVELYN C GENBMI During your visit today, we recorded [...] Status:Closed by EVELYN BLACK on 05/27/[address] [facility] NM GASTRIC EMPTYING SOLIDon 05-26-2023 [...] RATE OF GASTRIC EMPTYING OF SOLID MEAL. Marketing Proposal Specialist: PSCB Transcribe Date/Time: May 26 2023 11:18A Dictated by : SILVANO WELSH MD This examination was interpreted and the report reviewed and electronically signed by: SILVANO WELSH MD on May 26 2023 11:18AM EST [id number] Normal [facility] CNNURSEon 05-25-2023 CNNURSE Nurse Visit (GASTMN) CONSTANTINO CARDOSO ([id number]) 1970 F Date Time Provider Department 05/25/23 8:30 AM NURSE GI LAB 2 GASTMN During your visit today, we recorded the following information about you: Pedro Gonzalez LPN 05/25/2023 4:15 PM Signed Name: Constantino Cardoso CCF#: [id number] Date: 05/25/2023 ESOPHAGEAL MANOMETRY TEST Indication: Nausea [...] .Pedro Gonzalez LPN Referring Provider: MARQUES BRADLEY [[id number]] Allergies As of Date: 05/25/2023 Noted Allergy Reaction FLEXERIL (CYCLOBENZAPRINE) 04/28/2018 7 - Swelling PENICILLIN 04/28/2018 7 - Swelling Date Reviewed: 05/06/2023 Reviewed by: Judy Michaels MA - Fully Assessed Reason for Visit: Procedure [88] Cmt: Manometry Esophageal Visit Diagnosis:Nausea [R11.0] Order(s):MANOMETRY ESOPHAGEAL [12286ZBY] Order #: [id number] Prescriptions as of 05/25/2023 - dicyclomine (BENTYL) [...] Encounter Status:Closed by PEDRO GONZALEZ on 05/25/23 [facility] Magda 05-16-2023 CNPN Telephone (GENBMI) CONSTANTINO CARDOSO ([id number]) 1970 F Date Time Provider Department 05/16/23 [...] Encounter Status:Closed by EVELYN BLACK on 05/16/23 [facility] CNOVon 05-06-2023 CNOV Office Visit (GENBMI ) CONSTANTINO CARDOSO ([id number]) 1970 F Date Time Provider Department 05/06/23 [...] for internal providers or letter via the [employer] for external providers. Chief Complaint: [...] Time: 8:15 AM Referring Provider: IMER CHERRY [[id number]] Allergies As of Date: 05/06/2023 Noted Allergy Reaction (more content not included)... Normal [facility] CNPNon 05-02-2023 CNPN Telephone (GENBMI) CONSTANTINO CARDOSO ([id number]) 1970 F Date Time Provider Department 05/02/23 EVELYN BLACKI During your visit today, we recorded the following information about you: Evelyn Black, RN 05/04/2023 1:55 PM Addendum [facility] SPECIALTY CARE COORDINATION TELEPHONE ENCOUNTER Chief complaint AND duration dysphagia. Type of procedure: hernia repair hiatal with Dr. MORTENSEN in [place] February of 2019. Sending OP notes Nursing assessment (subjective/objective) . pain in chest area and getting worse, hard to breathe c/o nausea and oral intolerance, using miralax for BM Went to [place] ED March 2023 who told her she needed a stent in her heart..but her c/o were difficulty swallowing and sent pt home and referred her to [facility] and was admitted for almost a week [...] HHR a year later @ OSH in [place] Recommendation: appt after records obtained, encouraged small [...] Encounter Status:Closed by EVELYN BLACK on 05/02/23 [facility] Magda 04-26-2023 CNPN Telephone (GENBMI) CONSTANTINO CARDOSO ([id number]) 1970 F Date Time Provider Department 04/26/23 [...] Encounter Status:Closed by EVELYN BLACK on 04/26/23 [facility] 04-18-2023 CNPN Telephone (GENBMI) CONSTANTINO CARDOSO ([id number]) 1970 F Date Time Provider Department 04/18/23 EVELYN BLACK GENI During your visit today, we recorded the following information about you: Evelyn Black, VICKY 04/18/2023 2:17 PM Signed [facility] SPECIALTY CARE COORDINATION TELEPHONE ENCOUNTER Contacted pt regarding a referral from Dr Martinez's office. LVM and call back number. 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 Visit: 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 - Other [[id number]] Prescriptions as of 04/18/2023 [...] Encounter Status:Closed by EVELYN BLACK on 04/18/23 [facility] Magda 04-07-2023 CNPN Telephone (GASTSP) WALKERARIELLECHRIS ([id number]) 1970 F Date Time Provider Department 04/07/23 GUILLERMO MARTINEZ [facility] During your visit today, we recorded the following information about you: Yancy Lopez 04/07/2023 1:16 PM Signed Referral dorita'Jett Chisholm 04/11/2023 1:01 PM Signed Records are [...] by YANCY LOPEZ on 04/07/[address] [facility] Alanine aminotransferase [En zymatic activity/volume] in Serum or PlasmaOrdered By: Pete Thakkar on 03-23-2023 ALT [Catalytic activity/Vol] 11 U/L 7-52 [facility] Albumin [Mass/volume] in Ser um or Plasma by Bromocresol green (BCG) dye binding methoOrdered By: Pete Thakkar on 03-23-2023 Albumin BCG dye [Mass/Vol] 4.1 g/dL 3.5-5.7 [facility] Alkaline phosphatase [Enzyma tic activity/volume] in Serum or PlasmaOrdered By: Pete Thakkar on 03-23-2023 ALP [Catalytic activity/Vol] 115 U/L 34-104 [facility] Aspartate aminotransferase [ Enzymatic activity/volume] in Serum or PlasmaOrdered By: Pete Thakkar on 03-23-2023 AST [Catalytic activity/Vol] 15 U/L 13-39 [facility] Automated erythrocytes count in urine sediment (number/area)Ordered By: Pete Thakkar on 03-23-2023 RBC Auto (Urine sed) [#/Area] 0-1 [HPF] 0-4 [facility] Automated leukocytes count i n urine sediment (number/area)Ordered By: Pete Thakkar on 03-23-2023 WBC Auto (Urine sed) [#/Area] 0-1 [HPF] 0-4 [facility] Basophils Auto (Bld) [#/Vol] Ordered By: Pete Thakkar on 03-23-2023 Basophils (Bld) [#/Vol] 0.1 10*3/uL 0.0-0.2 [facility] Basophils/100 WBC Auto (Bld) Ordered By: Pete Thakkar on 03-23-2023 Basophils/100 WBC (Bld) 1.0 % . [facility] Bilirubin Test strip Ql (U)O rdered By: Pete Thakkar on 03-23-2023 Bilirubin Ql (U) Negative Negative [facility] Bilirubin.direct [Mass/volum e] in Serum or PlasmaOrdered By: Pete Thakkar on 03-23-2023 Bilirubin.direct [Mass/Vol] 0.10 mg/dL 0.03-0.18 [facility] Bilirubin.total [Mass/volume ] in Serum or PlasmaOrdered By: Pete Thakkar on 03-23-2023 Bilirubin [Mass/Vol] 0.3 mg/dL 0.3-1.0 [facility] Calcium [Mass/volume] in Ser um or PlasmaOrdered By: Pete Thakkar on 03-23-2023 Calcium [Mass/Vol] 9.0 mg/dL 8.6-10.3 [facility] Carbon dioxide, total [Moles /volume] in Serum or PlasmaOrdered By: Pete Thakkar on 03-23-2023 CO2 [Moles/Vol] 24.5 mmol/L 21.0-31.0 [facility] Chloride [Moles/volume] in S cristine or PlasmaOrdered By: Pete Thakkar on 03-23-2023 Chloride [Moles/Vol] 111 mmol/L 98-107 [facility] Color Auto (U)Ordered By: Shoaib Thakkar on 03-23-2023 Color (U) Yellow Yellow [facility] Creatinine [Mass/volume] in Serum or PlasmaOrdered By: Pete Thakkar on 03-23-2023 Creatinine [Mass/Vol] 0.72 mg/dL 0.60-1.20 [facility] Eosinophils Auto (Bld) [#/Vo l]Ordered By: Pete Thakkar on 03-23-2023 Eosinophils (Bld) [#/Vol] 0.3 10*3/uL 0.0-0.45 [facility] Eosinophils/100 WBC Auto (Bl d)Ordered By: Pete Thakkar on 03-23-2023 Eosinophils/100 WBC (Bld) 5.0 % . [facility] Erythrocyte distribution wid th Auto (RBC) [Ratio]Ordered By: Pete Thakkar on 03-23-2023 Erythrocyte distribution width (RBC) [Ratio] 13.6 % 11.9-15.3 [facility] Globulin Calc (S) [Mass/Vol] Ordered By: Pete Thakkar on 03-23-2023 Globulin (S) [Mass/Vol] 2.9 g/dL [facility] Glucose [Mass/volume] in Ser um or PlasmaOrdered By: Pete Thakkar on 03-23-2023 Glucose [Mass/Vol] 79 mg/dL 70-100 [facility] Comment on above: ADA recommended refe rence rangeRandom Glucose Reference Range is dependent on time and content of last meal. Glucose of more than 200 mg/dL in a nonstressed, ambulatory subject supports the diagnosis of Diabetes Mellitus. Hematocrit Auto (Bld) [Volum e fraction]Ordered By: Pete Thakkar on 03-23-2023 Hematocrit (Bld) [Volume fraction] 35.7 % 34.0-46.4 [facility] Hemoglobin [Mass/volume] in BloodOrdered By: Pete Thakkar on 03-23-2023 Hemoglobin (Bld) [Mass/Vol] 12.0 g/dL 11.8-15.4 [facility] Ketones Auto test strip (U) [Mass/Vol]Ordered By: Pete Thakkar on 03-23-2023 Ketones (U) [Mass/Vol] Negative Negative [facility] Laboratory - UrinalysisOrder ed By: Pete Thakkar on 03-23-2023 Hyaline casts LM Ql (Urine sed) None seen [LPF] 0-8 [facility] Leukocytes [#/volume] correc jun for nucleated erythrocytes in Blood by Automated counOrdered By: Pete Thakkar on 03-23-2023 WBC corrected for nucl RBC Auto (Bld) [#/Vol] 6.3 10*3/uL 3.8-11.6 [facility] Lipase [Enzymatic activity/v olume] in Serum or PlasmaOrdered By: Pete Thakkar on 03-23-2023 Lipase [Catalytic activity/Vol] 32.0 U/L 11.0-82.0 [facility] Lymphocytes Auto (Bld) [#/Vo l]Ordered By: Pete Thakkar on 03-23-2023 Lymphocytes (Bld) [#/Vol] 2.3 10*3/uL 1.00-4.8 [facility] Lymphocytes/100 WBC Auto (Bl d)Ordered By: Pete Thakkar on 03-23-2023 Lymphocytes/100 WBC (Bld) 36.1 % . [facility] MCH Auto (RBC) [Entitic mass ]Ordered By: Pete Thakkar on 03-23-2023 MCH (RBC) [Entitic mass] 29.2 pg 24.7-34.3 [facility] MCHC Auto (RBC) [Mass/Vol]Or dered By: Pete Thakkar on 03-23-2023 MCHC (RBC) [Mass/Vol] 33.7 g/dL 32.0-35.0 [facility] MCV Auto (RBC) [Entitic vol] Ordered By: Pete Thakkar on 03-23-2023 MCV (RBC) [Entitic vol] 86.7 fL 80-100 [facility] Monocyte distribution width [Entitic volume] in Blood by AutomatedOrdered By: Pete Thakkar on 03-23-2023 Monocyte distribution width Auto (Bld) [Entitic vol] 16.44 % 0.00-20.00 [facility] Monocytes Auto (Bld) [#/Vol] Ordered By: Pete Thakkar on 03-23-2023 Monocytes (Bld) [#/Vol] 0.5 10*3/uL 0.0-0.8 [facility] Monocytes/100 WBC Auto (Bld) Ordered By: Pete Thakkar on 03-23-2023 Monocytes/100 WBC (Bld) 7.7 % . [facility] Neutrophils Auto (Bld) [#/Vo l]Ordered By: Pete Thakkar on 03-23-2023 Neutrophils (Bld) [#/Vol] 3.2 10*3/uL 1.8-7.7 [facility] Neutrophils/100 WBC Auto (Bl d)Ordered By: Pete Thakkar on 03-23-2023 Neutrophils/100 WBC (Bld) 50.2 % . [facility] Nitrite Test strip Ql (U)Ord ered By: Pete Thakkar on 03-23-2023 Nitrite Ql (U) Negative Negative [facility] No Panel InformationOrdered By: Pete Thakkar on 03-23-2023 Estimated GFR (CKD-EPI) > 60.0 mL/Min [facility] Creatinine Clearance (Chem 105.27 [facility] Nucleated erythrocytes [Pres ence] in Blood by Automated countOrdered By: Pete Thakkar on 03-23-2023 Nucleated RBC Auto Ql (Bld) 0.1 /100{WBC} 0-0.5 [facility] Platelet mean volume Auto (B ld) [Entitic vol]Ordered By: Pete Thakkar on 03-23-2023 Platelet mean volume (Bld) [Entitic vol] 7.6 fL 6.3-10.7 [facility] Platelets Auto (Bld) [#/Vol] Ordered By: Pete Thakkar on 03-23-2023 Platelets (Bld) [#/Vol] 357 10*3/uL 150-450 [facility] Potassium [Moles/volume] in Serum or PlasmaOrdered By: Pete Thakkar on 03-23-2023 Potassium [Moles/Vol] 3.6 mmol/L 3.5-5.1 [facility] Protein Auto test strip (U) [Mass/Vol]Ordered By: Pete Thakkar on 03-23-2023 Protein (U) [Mass/Vol] Negative Negative [facility] Protein [Mass/volume] in Ser um or PlasmaOrdered By: Pete Thakkar on 03-23-2023 Protein [Mass/Vol] 7.0 g/dL 6.4-8.9 [facility] RBC Auto (Bld) [#/Vol]Ordere d By: Pete Thakkar on 03-23-2023 RBC (Bld) [#/Vol] 4.12 10*6/uL 3.60-5.00 [facility] Serum or plasma albumin/glob ulin mass ratioOrdered By: Pete Thakkar on 03-23-2023 Albumin/Globulin [Mass ratio] 1.4 {ratio} [facility] Serum or plasma anion gap de terminationOrdered By: Pete Thakkar on 03-23-2023 Anion gap [Moles/Vol] 10.1 mmol/L 6.0-15.0 [facility] Serum or plasma non-glucuron idated bilirubin measurement (mass/volume)Ordered By: Pete Thakkar on 03-23-2023 Bilirubin.indirect [Mass/Vol] 0.2 mg/dL [facility] Sodium [Moles/volume] in Ser um or PlasmaOrdered By: Pete Thakkar on 03-23-2023 Sodium [Moles/Vol] 142 mmol/L 136-145 [facility] Specific gravity Auto test s trip (U) [Rel density]Ordered By: Pete Thakkar on 03-23-2023 Specific gravity (U) [Rel density] 1.048 1.001-1.030 [facility] Squamous epithelial cells de tection in urine sediment by light microscopyOrdered By: Pete Thakkar on 03-23-2023 Epithelial cells.squamous LM Ql (Urine sed) None seen [HPF] 0-2 [facility] Troponin I.cardiac [Mass/vol ume] in Serum or Plasma by Detection limit <= 0.01 ng/Ordered By: Pete Thakkar on 03-23-2023 Troponin I.cardiac DL <= 0.01 ng/mL [Mass/Vol] 12.2 pg/mL 0.0-15.0 [facility] Urea nitrogen [Mass/volume] in Serum or PlasmaOrdered By: Pete Thakkar on 03-23-2023 Urea nitrogen [Mass/Vol] 24 mg/dL 7-25 [facility] Urine bacteria detection by automated methodOrdered By: Pete Thakkar on 03-23-2023 Bacteria Auto Ql (U) 1+ None Seen [facility] Urine clarity by refractomet ry automatedOrdered By: Pete Thakkar on 03-23-2023 Clarity Refractometry automated (U) Clear Clear [facility] Urine glucose measurement by automated test strip (mass/volume)Ordered By: Pete Thakkar on 03-23-2023 Glucose Auto test strip (U) [Mass/Vol] Normal mg/dL Normal [facility] Urine hemoglobin detection b y automated test stripOrdered By: Pete Thakkar on 03-23-2023 Hemoglobin Auto test strip Ql (U) Trace Negative [facility] Urine leukocyte esterase det ection by automated test stripOrdered By: Pete Thakkar on 03-23-2023 Leukocyte esterase Auto test strip Ql (U) Negative Negative [facility] Urobilinogen Auto test strip (U) [Mass/Vol]Ordered By: Pete Thakkar on 03-23-2023 Urobilinogen (U) [Mass/Vol] Normal mg/dL Normal [facility] WBC Auto (Bld) [#/Vol]Ordere d By: Pete Thakkar on 03-23-2023 WBC (Bld) [#/Vol] 6.3 10*3/uL 3.8-11.6 [facility] pH Auto test strip (U)Ordere d By: Pete Thakkar on 03-23-2023 pH (U) 5.0 [pH] 5.0-9.0 [facility] Activated partial thrombopla stin time (aPTT) in platelet poor plasma by coagulation aOrdered By: Conner Griffith on 02-15-2023 aPTT Coag (PPP) [Time] 37.0 s 25.1-36.5 [facility] Alanine aminotransferase [En zymatic activity/volume] in Serum or PlasmaOrdered By: Conner Griffith on 02-15-2023 ALT [Catalytic activity/Vol] 13 U/L 7-52 [facility] Albumin [Mass/volume] in Ser um or Plasma by Bromocresol green (BCG) dye binding methoOrdered By: Conner Griffith on 02-15-2023 Albumin BCG dye [Mass/Vol] 4.3 g/dL 3.5-5.7 [facility] Alkaline phosphatase [Enzyma tic activity/volume] in Serum or PlasmaOrdered By: Conner Griffith on 02-15-2023 ALP [Catalytic activity/Vol] 124 U/L 34-104 [facility] Aspartate aminotransferase [ Enzymatic activity/volume] in Serum or PlasmaOrdered By: Conner Griffith on 02-15-2023 AST [Catalytic activity/Vol] 15 U/L 13-39 [facility] Basophils Auto (Bld) [#/Vol] Ordered By: Conner Griffith on 02-15-2023 Basophils (Bld) [#/Vol] 0.0 10*3/uL 0.0-0.2 [facility] Basophils/100 WBC Auto (Bld) Ordered By: Conner Griffith on 02-15-2023 Basophils/100 WBC (Bld) 0.6 % . [facility] Bilirubin.direct [Mass/volum e] in Serum or PlasmaOrdered By: Conner Griffith on 02-15-2023 Bilirubin.direct [Mass/Vol] 0.00 mg/dL 0.03-0.18 [facility] Comment on above: If the DBIL is less than 0.1, IBIL is not able to becalculated. Bilirubin.total [Mass/volume ] in Serum or PlasmaOrdered By: Conner Griffith on 02-15-2023 Bilirubin [Mass/Vol] 0.4 mg/dL 0.3-1.0 [facility] Calcium [Mass/volume] in Ser um or PlasmaOrdered By: Conner Griffith on 02-15-2023 Calcium [Mass/Vol] 9.3 mg/dL 8.6-10.3 [facility] Carbon dioxide, total [Moles /volume] in Serum or PlasmaOrdered By: Conner Griffith on 02-15-2023 CO2 [Moles/Vol] 25.3 mmol/L 21.0-31.0 [facility] Chloride [Moles/volume] in S cristine or PlasmaOrdered By: Conner Griffith on 02-15-2023 Chloride [Moles/Vol] 106 mmol/L 98-107 [facility] Creatinine [Mass/volume] in Serum or PlasmaOrdered By: Conner Griffith on 02-15-2023 Creatinine [Mass/Vol] 0.77 mg/dL 0.60-1.20 [facility] Eosinophils Auto (Bld) [#/Vo l]Ordered By: Conner Griffith on 02-15-2023 Eosinophils (Bld) [#/Vol] 0.2 10*3/uL 0.0-0.45 [facility] Eosinophils/100 WBC Auto (Bl d)Ordered By: Conner Griffith on 02-15-2023 Eosinophils/100 WBC (Bld) 4.0 % . [facility] Erythrocyte distribution wid th Auto (RBC) [Ratio]Ordered By: Conner Grifftih on 02-15-2023 Erythrocyte distribution width (RBC) [Ratio] 13.5 % 11.9-15.3 [facility] Globulin Calc (S) [Mass/Vol] Ordered By: Conner Griffith on 02-15-2023 Globulin (S) [Mass/Vol] 3.0 g/dL [facility] Glucose [Mass/volume] in Ser um or PlasmaOrdered By: Conner Griffith on 02-15-2023 Glucose [Mass/Vol] 94 mg/dL 70-100 [facility] Comment on above: ADA recommended refe rence rangeRandom Glucose Reference Range is dependent on time and content of last meal. Glucose of more than 200 mg/dL in a nonstressed, ambulatory subject supports the diagnosis of Diabetes Mellitus. Hematocrit Auto (Bld) [Volum e fraction]Ordered By: Conner Griffith on 02-15-2023 Hematocrit (Bld) [Volume fraction] 38.4 % 34.0-46.4 [facility] Hemoglobin [Mass/volume] in BloodOrdered By: Conner Griffith on 02-15-2023 Hemoglobin (Bld) [Mass/Vol] 13.0 g/dL 11.8-15.4 [facility] Laboratory - CoagulationOrde red By: Conner Griffith on 02-15-2023 PT Coag (PPP) [Time] 11.7 s 9.0-12.9 [facility] Leukocytes [#/volume] correc jun for nucleated erythrocytes in Blood by Automated counOrdered By: Conner Griffith on 02-15-2023 WBC corrected for nucl RBC Auto (Bld) [#/Vol] 5.2 10*3/uL 3.8-11.6 [facility] Lipase [Enzymatic activity/v olume] in Serum or PlasmaOrdered By: Conner Griffith on 02-15-2023 Lipase [Catalytic activity/Vol] 19.0 U/L 11.0-82.0 [facility] Lymphocytes Auto (Bld) [#/Vo l]Ordered By: Conner Griffith on 02-15-2023 Lymphocytes (Bld) [#/Vol] 1.8 10*3/uL 1.00-4.8 [facility] Lymphocytes/100 WBC Auto (Bl d)Ordered By: Conner Griffith on 02-15-2023 Lymphocytes/100 WBC (Bld) 33.8 % . [facility] MCH Auto (RBC) [Entitic mass ]Ordered By: Conner Griffith on 02-15-2023 MCH (RBC) [Entitic mass] 29.4 pg 24.7-34.3 [facility] MCHC Auto (RBC) [Mass/Vol]Or dered By: Conner Griffith on 02-15-2023 MCHC (RBC) [Mass/Vol] 33.8 g/dL 32.0-35.0 [facility] MCV Auto (RBC) [Entitic vol] Ordered By: Conner Griffith on 02-15-2023 MCV (RBC) [Entitic vol] 86.8 fL 80-100 [facility] Monocyte distribution width [Entitic volume] in Blood by AutomatedOrdered By: Conner Griffith on 02-15-2023 Monocyte distribution width Auto (Bld) [Entitic vol] 18.21 % 0.00-20.00 [facility] Monocytes Auto (Bld) [#/Vol] Ordered By: Conner Griffith on 02-15-2023 Monocytes (Bld) [#/Vol] 0.3 10*3/uL 0.0-0.8 [facility] Monocytes/100 WBC Auto (Bld) Ordered By: Conner Griffith on 02-15-2023 Monocytes/100 WBC (Bld) 4.8 % . [facility] Neutrophils Auto (Bld) [#/Vo l]Ordered By: Conner Griffith on 02-15-2023 Neutrophils (Bld) [#/Vol] 3.0 10*3/uL 1.8-7.7 [facility] Neutrophils/100 WBC Auto (Bl d)Ordered By: Conner Griffith on 02-15-2023 Neutrophils/100 WBC (Bld) 56.8 % . [facility] No Panel InformationOrdered By: Conner Griffith on 02-15-2023 Estimated GFR (CKD-EPI) > 60.0 mL/Min [facility] Creatinine Clearance (Chem 98.01 [facility] Nucleated erythrocytes [Pres ence] in Blood by Automated countOrdered By: Conner Griffith on 02-15-2023 Nucleated RBC Auto Ql (Bld) 0.2 /100{WBC} 0-0.5 [facility] Platelet mean volume Auto (B ld) [Entitic vol]Ordered By: Conner Griffith on 02-15-2023 Platelet mean volume (Bld) [Entitic vol] 7.3 fL 6.3-10.7 [facility] [facility] Platelet poor plasma interna tional normalized ratio (INR) by coagulation assay (relatOrdered By: Conner Griffith on 02-15-2023 INR Coag (PPP) [Relative time] 1.0 {INR} [facility] Comment on above: INR Therapeutic Rang e [...] 02-15-2023 Platelets (Bld) [#/Vol] 385 10*3/uL 150-450 [facility] Potassium [Moles/volume] in Serum or PlasmaOrdered By: Conner Griffith on 02-15-2023 Potassium [Moles/Vol] 3.9 mmol/L 3.5-5.1 [facility] Protein [Mass/volume] in Ser um or PlasmaOrdered By: Conner Griffith on 02-15-2023 Protein [Mass/Vol] 7.3 g/dL 6.4-8.9 [facility] RBC Auto (Bld) [#/Vol]Ordere d By: Conner Griffith on 02-15-2023 RBC (Bld) [#/Vol] 4.43 10*6/uL 3.60-5.00 [facility] Serum or plasma albumin/glob ulin mass ratioOrdered By: Conner Griffith on 02-15-2023 Albumin/Globulin [Mass ratio] 1.4 {ratio} [facility] Serum or plasma anion gap de terminationOrdered By: Conner Griffith on 02-15-2023 Anion gap [Moles/Vol] 12.6 mmol/L 6.0-15.0 [facility] Serum or plasma non-glucuron idated bilirubin measurement (mass/volume)Ordered By: Conner Griffith on 02-15-2023 Bilirubin.indirect [Mass/Vol] 0.4 mg/dL [facility] Sodium [Moles/volume] in Ser um or PlasmaOrdered By: Conner Griffith on 02-15-2023 Sodium [Moles/Vol] 140 mmol/L 136-145 [facility] Urea nitrogen [Mass/volume] in Serum or PlasmaOrdered By: Conner Griffith on 02-15-2023 Urea nitrogen [Mass/Vol] 14 mg/dL 7- [facility] WBC Auto (Bld) [#/Vol]Ordere d By: Conner Griffith on 02-15-2023 WBC (Bld) [#/Vol] 5.2 10*3/uL 3.8-11.6 [facility] MG MAMM SCREEN 3D MACARIO CADon 11-30-2022 MG MAMM SCREEN 3D MACARIO CAD Normal [facility] ER URINE PROFILEon Bilirubin Ql (U) Negative Normal NEGATIVE [facility] Comment on above: Performed By: #### E RUR ####[facility] Vxexclxkil[address] [place], [place] [address]Dr. Tadeo Smyth Clarity (U) CLEAR Normal CLEAR [facility] Comment on above: Performed By: #### E RUR ####[facility] Mgdeubijfc[address] [place], [place] [address]Dr. Tadeo Smyth Color (U) YELLOW Normal YELLOW [facility] Comment on above: Performed By: #### E RUR ####[facility] Ancmsgzwez[address] [place], [place] [address]Dr. Tadeo Smyth ERUAHD A micrscopic examina tion will be performed if indicated. Normal [facility] Comment on above: Performed By: #### E RUR ####[facility] Fsnjxjvekc[address] [place], [place] [address]Dr. Tadeo Smyth Glucose Ql (U) Negative Normal NEGATIVE [facility] Comment on above: Performed By: #### E RUR ####[facility] Pksrrvjefe39[address] [place], [place] [address]Dr. Tadeo Smyth Hemoglobin Ql (U) TRACE-INTACT Abnormal NEGATIVE [facility] Comment on above: Performed By: #### E RUR ####[facility] Nvkbekzuyk6839[address] [place], [place] [address]Dr. Tadeo Smyth Ketones Ql (U) Negative Normal NEGATIVE [facility] Comment on above: Performed By: #### E RUR ####[facility] Ydcaylgsaa[address] [place], [place] [address]Dr. Tadeo Smyth LEUKOCYTES Negative Normal NEGATIVE [facility] Comment on above: Performed By: #### E RUR ####[facility] [address] [place] [address]Dr. Tadeo Smyth Nitrite Ql (U) Negative Normal NEGATIVE [facility] Comment on above: Performed By: #### E RUR ####[facility] Kanrtpxfwg22[address] [place] [address]Dr. Tadeo Smyth pH (U) 6.0 [pH] Normal 5-9 [facility] Comment on above: Performed By: #### E RUR ####[facility] Urolbxpnma[address]13[address] [place], [place] [address]Dr. Margotnicole Smyth SPEC GRAVITY >=1.030 Abnormal 1.005-<=1.0 25 [facility] Comment on above: Performed By: #### E RUR ####[facility] Lekearrfki23[address] [place], [place] [address]Dr. Tadeo Smyth UA PROTEIN Negative Normal NEGATIVE/ TRACE [facility] Comment on above: Performed By: #### E RUR ####[facility] Jhymjwpbjl[address] [place], [place] [address]Dr. Margotnicole Smyth UR MICRO IND NOT INDICATED Normal [facility] Comment on above: Performed By: #### E RUR ####[facility] Taetvmqadq1789[address] [place], [place] [address]Dr. Tadeo Smyth Urobilinogen Qn (U) 0.2 {Benito'U}/dL Normal 0.2 - 1. 0 [facility] Comment on above: Performed By: #### E RUR ####[facility] Tcxwomdibv[address] [place], [place] [address]Dr. Tadeo Smyth XR ABD FLAT UP_PA Kasey 11-28 XR ABD FLAT UP_PA CH Normal [facility] AMYLASEon 11-27-2022 Amylase [Catalytic activity/Vol] 63 U/L Normal 25-115 [facility] Comment on above: Performed By: #### L IPA, VIJI, CMP ####[facility] Wudotdfcdv8816[address] [place], [place] [address]Dr. Tadeo Smyth CBC AUTO DIFFon 11-27-2022 BASO # 0.0 103/ul Normal 0.0-0.1 [facility] Comment on above: Performed By: #### C BC ####[facility] Pzzouwbtld[address] [place], [place] [address]Dr. Tadeo Smyth Basophils/100 WBC (Bld) 0.4 % Normal 0.2-2.0 [facility] Comment on above: Performed By: #### C BC ####[facility] Dathihnqxf[address] [place], [place] [address]Dr. Tadeo Smyth EO # 0.2 103/ul Normal 0.0-0.7 [facility] Comment on above: Performed By: #### C BC ####[facility] Kwiqjrnafn2[address] [place], [place] [address]Dr. Tadeo Smyth Eosinophils/100 WBC (Bld) 2.8 % Normal 0.9-7.0 [facility] Comment on above: Performed By: #### C BC ####[facility] Hoksjnsefw7[address] [place], [place] [address]Dr. Tadeo Smyth Erythrocyte distribution width (RBC) [Ratio] 13.2 % Normal 11.0-15.0 [facility] Comment on above: Performed By: #### C BC ####[facility] Xyzeyavauc5[address] [place], [place] [address]Dr. Tadeo Smyth Hematocrit (Bld) [Volume fraction] 42.6 % Normal 36.0-48.0 [facility] Comment on above: Performed By: #### C BC ####[facility] Sbujnltpgr[address] [place], [place] [address]Dr. Tadeo Smyth Hemoglobin (Bld) [Mass/Vol] 13.6 g/dL Normal 12.0-16.0 [facility] Comment on above: Performed By: #### C BC ####[facility] Maznzifxli6[address] [place], [place] [address]Dr. Tadeo Smyth IG # 0.02 10e3/ul Normal 0.00-0.03 [facility] Comment on above: Performed By: #### C BC ####[facility] Y[address]tf[address] [place] [address]Dr. Tadeo Smyth IG % 0.3 % Normal 0.0-0.5 [facility] Comment on above: Performed By: #### C BC ####[facility] Rwmefqtvgm[address] [place] [address]DrNeo Smyth LYMPH # 2.2 103/ul Normal 1.2-3.8 [facility] Comment on above: Performed By: #### C BC ####[facility] Qxkmkqhqjs4[address] [place], [place] [address]DrNeo Smyth Lymphocytes/100 WBC (Bld) 32.1 % Normal 20.5-60.0 [facility] Comment on above: Performed By: #### C BC ####[facility] Fkiqnucysb3483[address] [place], [place] [address]DrNeo Smyth MANUAL DIFF REQ NO Normal [facility] Comment on above: Performed By: #### C BC ####[facility] Jtcutfluzy24[address] [place], [place] [address]DrNeo Smyth MCH (RBC) [Entitic mass] 29.6 pg Normal 26.7-34.0 [facility] Comment on above: Performed By: #### C BC ####[facility] Ymusthcass4427[address] [place], [place] [address]DrNeo Smyth MCHC (RBC) [Mass/Vol] 31.9 g/dL Normal 29.9-35.2 [facility] Comment on above: Performed By: #### C BC ####[facility] Uhaxqguspi9325[address] [place], [place] [address]DrNeo Smyth MCV (RBC) [Entitic vol] 92.6 fL Normal 81.0-99.0 [facility] Comment on above: Performed By: #### C BC ####[facility] Ifteisyyhj1442[address] [place], [place] [address]DrNeo Smyth MONO # 0.2 103/ul Critically low 0.3-0.8 [facility] Comment on above: Performed By: #### C BC ####[facility] Xqobqxoizn[address] [place], [place] [address]DrNeo Smyth Monocytes/100 WBC (Bld) 3.2 % Normal 1.7-12.0 [facility] Comment on above: Performed By: #### C BC ####[facility] J[address]akxk[address] [place] [address]Dr. Tadeo Smyth NEUT # 4.2 103/ul Normal 1.4-6.5 [facility] Comment on above: Performed By: #### C BC ####[facility] Hicilsimkv[address] [place] [address]Dr. Tadeo Smyth Neutrophils/100 WBC (Bld) 61.2 % Normal 43.0-75.0 [facility] Comment on above: Performed By: #### C BC ####[facility] Icjjctjswg[address] [place], [place] [address]Dr. Tadeo Smyth Platelet mean volume (Bld) [Entitic vol] 9.0 fL Critically low 9.5-13.5 [facility] Comment on above: Performed By: #### C BC ####[facility] Sitbvhfntp[address] [place], [place] [address]Dr. Tadeo Smyth PLT 392 103/ul Normal 150-450 [facility] Comment on above: Performed By: #### C BC ####[facility] Whurkocseo[address] [place], [place] [address]Dr. Tadeo Smyth RBC 4.60 106/ul Normal 4.20-5.40 [facility] Comment on above: Performed By: #### C BC ####[facility] Qszipcmlbi39[address] [place], [place] [address]Dr. Tadeo Smyth WBC 6.9 103/ul Normal 4.0-11.0 [facility] Comment on above: Performed By: #### C BC ####[facility] Hywqnxfeir[address] [place], [place] [address]Dr. Tadeo Smyth LIPASEon 11-27-2022 Lipase [Catalytic activity/Vol] 100.0 U/L Normal 73.0-393.0 [facility] Comment on above: Performed By: #### L IPA, VIJI, CMP ####[facility] Pxfgawdkeo[address] [place], [place] [address]Dr. Tadeo Smyth PROF 14(COMP METB)on 023 Albumin [Mass/Vol] 3.5 g/dL Normal 3.4-5.0 [facility] Comment on above: Performed By: #### L VIJI HALL, CMP ####[facility] S[address]uv[address] [place] [address]Dr. Tadeo Smyth Albumin/Globulin [Mass ratio] 0.9 {ratio} Normal [facility] Comment on above: Performed By: #### L VIJI HALL, CMP ####[facility] U[address]uz[address]ami[address] [place] [address]Dr. Tadeo Smyth ALP [Catalytic activity/Vol] 166 U/L Critically high 46-116 [facility] Comment on above: Performed By: #### L VIJI HALL, CMP ####[facility] [address]zzhka[address] [place] [address]Dr. Tadeo Smyth ALT [Catalytic activity/Vol] 25 U/L Normal 14-59 [facility] Comment on above: Performed By: #### L VIJI HALL, CMP ####[facility] Qnaxpqesji54[address] [place] [address]Dr. Tadeo Smyth Anion gap [Moles/Vol] 12.4 mmol/L Normal [facility] Comment on above: Performed By: #### L VIJI HALL, CMP ####[facility] Zeviyahzry[address] [place], [place] [address]Dr. Tadeo Smyth AST [Catalytic activity/Vol] 18 U/L Normal 15-37 [facility] Comment on above: Performed By: #### L VIJI HALL, CMP ####[facility] [address]smby[address] [place] [address]Dr. Tadeo Smyth Bilirubin [Mass/Vol] 0.3 mg/dL Normal 0.2-1.0 [facility] Comment on above: Performed By: #### L VIJI HALL, CMP ####[facility] W[address]xqif[address] [place] [address]Dr. Tadeo Smyth Calcium [Mass/Vol] 9.1 mg/dL Normal 8.5-10.1 [facility] Comment on above: Performed By: #### L IPAVIJI, CMP ####[facility] [address]cdb[address] [place] [address]Dr. Tadeo Smyth Chloride [Moles/Vol] 104 mmol/L Normal 98-107 [facility] Comment on above: Performed By: #### L IPA VIJI, CMP ####[facility] Pitupxooql4[address] [place] [address]Dr. Tadeo Smyth CO2 [Moles/Vol] 25.0 mmol/L Normal 21.0-32.0 [facility] Comment on above: Performed By: #### L IPA VIJI, CMP ####[facility] Ttwdjhugum[address] [place], [place] [address]Dr. Tadeo Smyth Creatinine [Mass/Vol] 0.87 mg/dL Normal 0.55-1.02 [facility] Comment on above: Performed By: #### L ISABEL VIJI, CMP ####[facility] Eetjqjwlma[address] [place], [place] [address]Dr. Tadeo Smyth EGFR-AF IRAQI >60 Normal >=60 [facility] Comment on above: Performed By: #### L ISABEL VIJI, CMP ####[facility] Dqairvaxwe[address]35[address] [place], [place] [address]Dr. Tadeo Smyth EGFR-NON AF IRAQI >60 Normal >=60 [facility] Comment on above: Performed By: #### L ISABEL VIJI, CMP ####[facility] Ufhpfxwqbl[address] [place], [place] [address]Dr. Tadeo Smyth Globulin (S) [Mass/Vol] 3.9 g/dL Normal [facility] Comment on above: Performed By: #### L IPA VIJI, CMP ####[facility] [address] [place] [address]Dr. Tadeo Smyth Glucose [Mass/Vol] 169 mg/dL Critically high 74-106 [facility] Comment on above: Performed By: #### L IPA VIJI, CMP ####[facility] Rkrqokcyeb2[address] [place] [address]Dr. Tdaeo Smyth Potassium [Moles/Vol] 3.4 mmol/L Critically low 3.5-5.1 [facility] Comment on above: Performed By: #### L IPA, VIJI, CMP ####[facility] Cdcdysmmvl5991 [place] [address]Dr. Tadeo Smyth Protein [Mass/Vol] 7.4 g/dL Normal 6.4-8.2 [facility] Comment on above: Performed By: #### L IPA, VIJI, CMP ####[facility] Jrremdxlux60[address] [place], [place] [address]Dr. Tadeo Smyth Sodium [Moles/Vol] 138 mmol/L Normal 136-145 [facility] Comment on above: Performed By: #### L IPA, VIJI, CMP ####[facility] Nhtoucvheg6[address] [place], [place] [address]Dr. Tadeo Smyth Urea nitrogen [Mass/Vol] 23.0 mg/dL Critically high 7.0-18.0 [facility] Comment on above: Performed By: #### L IPA VIJI, CMP ####[facility] Fhmbwzoqsw[address] [place], [place] [address]Dr. Tadeo Smyth Urea nitrogen/Creatinine [Mass ratio] 26.4 mg/mg Normal [facility] Comment on above: Performed By: #### L IPA VIJI, CMP ####[facility] Mxpnhuvkyy[address] [place], [place] [address]Dr. Tadeo Smyth AMYLASEon 11-02-2022 Amylase [Catalytic activity/Vol] 40 U/L Normal 25-115 [facility] Comment on above: Performed By: #### L IPA, MG, CMP, VIJI ####[facility] Tilvmcivoz4[address] [place], [place] [address]Dr. Tadeo Smyth CBC AUTO DIFFon 11-02-2022 BASO # 0.0 103/ul Normal 0.0-0.1 [facility] Comment on above: Performed By: #### C BC ####[facility] Jwqyuxnwxl[address] [place], [place] [address]Dr. Tadeo Smyth Basophils/100 WBC (Bld) 0.5 % Normal 0.2-2.0 [facility] Comment on above: Performed By: #### C BC ####[facility] [address]pxcp[address] [place] [id number]. Tadeo Smyth EO # 0.1 103/ul Normal 0.0-0.7 [facility] Comment on above: Performed By: #### C BC ####[facility] Rz[address]axawan[address] [place] [address]Dr. Tadeo Smyth Eosinophils/100 WBC (Bld) 2.8 % Normal 0.9-7.0 [facility] Comment on above: Performed By: #### C BC ####[facility] Aotzhgriwb[address] [place], [place] [address]Dr. Tadeo Smyth Erythrocyte distribution width (RBC) [Ratio] 13.3 % Normal 11.0-15.0 [facility] Comment on above: Performed By: #### C BC ####[facility] Edcotdgxht[address] [place], [place] [address]Dr. Tadeo Smyth Hematocrit (Bld) [Volume fraction] 35.6 % Critically low 36.0-48.0 [facility] Comment on above: Performed By: #### C BC ####[facility] Yptvtolryp[address] [place], [place] [address]Dr. Tadeo Smyth Hemoglobin (Bld) [Mass/Vol] 11.3 g/dL Critically low 12.0-16.0 [facility] Comment on above: Performed By: #### C BC ####[facility] Qmfftjeagl[address] [place], [place] [address]Dr. Tadeo Smyth IG # 0.01 10e3/ul Normal 0.00-0.03 [facility] Comment on above: Performed By: #### C BC ####[facility] Vhiupyhsae[address] [place], [place] [address]Dr. Tadeo Smyth IG % 0.2 % Normal 0.0-0.5 [facility] Comment on above: Performed By: #### C BC ####[facility] Bzmgjboipx8[address] [place], [place] [address]Dr. Tadeo Smyth LYMPH # 1.5 103/ul Normal 1.2-3.8 [facility] Comment on above: Performed By: #### C BC ####[facility] Njqxubpxid5[address] [place] [id number]. Tadeo Smyth Lymphocytes/100 WBC (Bld) 34.9 % Normal 20.5-60.0 [facility] Comment on above: Performed By: #### C BC ####[facility] Awzkxltito60[address] [place] [id number]. Tadeo Smyth MANUAL DIFF REQ NO Normal [facility] Comment on above: Performed By: #### C BC ####[facility] C[address]xmex[address] [place], [place] [id number]. Tadeo Haja MCH (RBC) [Entitic mass] 28.8 pg Normal 26.7-34.0 [facility] Comment on above: Performed By: #### C BC ####[facility] Fmxjzsqivc[address] [place], [place] [address]Dr. Tadeo Haja MCHC (RBC) [Mass/Vol] 31.7 g/dL Normal 29.9-35.2 [facility] Comment on above: Performed By: #### C BC ####[facility] Aq[address]ymc[address] [place] [id number]. Tadeo Smyth MCV (RBC) [Entitic vol] 90.8 fL Normal 81.0-99.0 [facility] Comment on above: Performed By: #### C BC ####[facility] Wkiwasfele[address] [place], [place] [address]Dr. Margotnicole Haja MONO # 0.3 103/ul Normal 0.3-0.8 [facility] Comment on above: Performed By: #### C BC ####[facility] Vzhpywpvro[address] [place], [place] [id number]. Margotnicloe Smyth Monocytes/100 WBC (Bld) 6.9 % Normal 1.7-12.0 [facility] Comment on above: Performed By: #### C BC ####[facility] C[address]vijrwxp[address] [place], [place] [id number]. Tadeo Smyth NEUT # 2.4 103/ul Normal 1.4-6.5 [facility] Comment on above: Performed By: #### C BC ####[facility] Q[address]lsnv4[address] [place] [address]Dr. Tadeo Smyth Neutrophils/100 WBC (Bld) 54.7 % Normal 43.0-75.0 [facility] Comment on above: Performed By: #### C BC ####[facility] Boxubgtwzf[address] [place] [address]Dr. Tadeo Smyth Platelet mean volume (Bld) [Entitic vol] 8.9 fL Critically low 9.5-13.5 [facility] Comment on above: Performed By: #### C BC ####[facility] Otzafbvmvk[address] [place] [address]Dr. Tadeo Smyth PLT 316 103/ul Normal 150-450 [facility] Comment on above: Performed By: #### C BC ####[facility] S[address]dlwsqntd[address] [place], [place] [address]Dr. Tadeo Smyth RBC 3.92 106/ul Critically low 4.20-5.40 [facility] Comment on above: Performed By: #### C BC ####[facility] Qqkzphpajn[address] [place], [place] [address]Dr. Tadeo Smyth WBC 4.4 103/ul Normal 4.0-11.0 [facility] Comment on above: Performed By: #### C BC ####[facility] Pcykhxdjhf[address] [place], [place] [address]Dr. Tadeo Smyth H PYLORI ANTIBODY IGGon 10-07 H. PYLORI IGG ABS 0.12 Index Value Normal 0.00-0.79 [facility] Comment on above: Result Comment: Nega tive <0.80 Equivocal 0.80 - 0.89 Positive >0.89 Performed By: #### H PYLLC ####[facility] Vinbrkrwwo8814[address] [place], [place] [address]Dr. Tadeo Smyth LIPASEon 11-02-2022 Lipase [Catalytic activity/Vol] 58.0 U/L Critically low 73.0-393.0 [facility] Comment on above: Performed By: #### L IPA, MG, CMP, VIJI ####[facility] Xsldhpvhad[address] [place] [address]Dr. Tadeo Smyth MAGNESIUMon 11-02-2022 Magnesium [Mass/Vol] 1.8 mg/dL Normal 1.8-2.4 [facility] Comment on above: Performed By: #### L IPA, MG, CMP, VIJI ####[facility] Ipylb[address]ww46[address] [place] [address]Dr. Tadeo Smyth PROF 14(COMP METB)on 023 Albumin [Mass/Vol] 3.2 g/dL Critically low 3.4-5.0 [facility] Comment on above: Performed By: #### L IPA, MG, CMP, VIJI ####[facility] Rcswvgscso[address] [place], [place] [address]Dr. Tadeo Smyth Albumin/Globulin [Mass ratio] 1.0 {ratio} Normal [facility] Comment on above: Performed By: #### L IPA, MG, CMP, VIJI ####[facility] Gmaqrkmvin[address] [place], [place] [address]Dr. Tadeo Smyth ALP [Catalytic activity/Vol] 138 U/L Critically high 46-116 [facility] Comment on above: Performed By: #### L IPA, MG, CMP, VIJI ####[facility] Mawdunsyxq[address] [place], [place] [address]Dr. Tadeo Smyth ALT [Catalytic activity/Vol] 22 U/L Normal 14-59 [facility] Comment on above: Performed By: #### L IPA, MG, CMP, VIJI ####[facility] Wbbkvguqxv[address] [place], [place] [address]Dr. Tadeo Smyth Anion gap [Moles/Vol] 10.0 mmol/L Normal [facility] Comment on above: Performed By: #### L IPA, MG, CMP, VIJI ####[facility] [address]zy[address]ucv[address] [place], [place] [address]Dr. Tadeo Smyth AST [Catalytic activity/Vol] 18 U/L Normal 15-37 [facility] Comment on above: Performed By: #### L IPA, MG, CMP, VIJI ####[facility] Feniyyd[address] [place], [place] [address]Dr. Tadeo Smyth Bilirubin [Mass/Vol] 0.5 mg/dL Normal 0.2-1.0 [facility] Comment on above: Performed By: #### L IPA, MG, CMP, VIJI ####[facility] [address] [place] [address]Dr. Tadeo Smyth Calcium [Mass/Vol] 8.9 mg/dL Normal 8.5-10.1 The [facility] Comment on above: Performed By: #### L IPA, MG, CMP, VIJI ####[facility] Zybjms[address] [place], [place] [address]Dr. Tadeo Smyth Chloride [Moles/Vol] 107 mmol/L Normal 98-107 The [facility] Comment on above: Performed By: #### L IPA, MG, CMP, VIJI ####[facility] Wcfadkwwnk[address] [place], [place] [address]Dr. Tadeo Smyth CO2 [Moles/Vol] 28.8 mmol/L Normal 21.0-32.0 The [facility] Comment on above: Performed By: #### L IPA, MG, CMP, VIJI ####[facility] Hdfr[address]lgyy[address] [place], [place] [address]Dr. Tadeo Smyth Creatinine [Mass/Vol] 0.74 mg/dL Normal 0.55-1.02 The [facility] Comment on above: Performed By: #### L IPA, MG, CMP, VIJI ####[facility] Gnhlfibfkc[address] [place], [place] [address]Dr. Tadeo Smyth EGFR-AF IRAQI >60 Normal >=60 The [facility] Comment on above: Performed By: #### L IPA, MG, CMP, VIJI ####[facility] Ocpbjvsybk[address] [place], [place] [address]Dr. Tadeo Smyth EGFR-NON AF IRAQI >60 Normal >=60 The [facility] Comment on above: Performed By: #### L IPA, MG, CMP, VIJI ####[facility] Uyufmedcte[address] [place], [place] [address]Dr. Tadeo Smyth Globulin (S) [Mass/Vol] 3.3 g/dL Normal The [facility] Comment on above: Performed By: #### L IPA, MG, CMP, VIJI ####[facility] [address]ntmt[address] [place] [address]Dr. Tadeo Smyth Glucose [Mass/Vol] 96 mg/dL Normal 74-106 The [facility] Comment on above: Performed By: #### L IPA, MG, CMP, VIJI ####[facility] [address] [place] [address]Dr. Tadeo Smyth Potassium [Moles/Vol] 3.8 mmol/L Normal 3.5-5.1 The [facility] Comment on above: Performed By: #### L IPA, MG, CMP, VIJI ####[facility] Pwyalopydb[address] [place], [place] [address]Dr. Tadeo Smyth Protein [Mass/Vol] 6.5 g/dL Normal 6.4-8.2 The [facility] Comment on above: Performed By: #### L IPA, MG, CMP, VIJI ####[facility] Uivjyvuuh[address] [place], [place] [address]Dr. Tadeo Smyth Sodium [Moles/Vol] 142 mmol/L Normal 136-145 The [facility] Comment on above: Performed By: #### L IPA, MG, CMP, VIJI ####[facility] Eqcvecthqy[address] [place], [place] [address]Dr. Tadeo Smyth Urea nitrogen [Mass/Vol] 8.0 mg/dL Normal 7.0-18.0 [facility] Comment on above: Performed By: #### L IPA, MG, CMP, VIJI ####[facility] Ivq[address] [place], [place] [address]Dr. Tadeo Smyth Urea nitrogen/Creatinine [Mass ratio] 10.8 mg/mg Normal [facility] Comment on above: Performed By: #### L IPA, MG, CMP, VIJI ####[facility] Bszqbxpyri[address] [place], [place] [address]Dr. Tadeo Smyth AMMONIAon 11-01-2022 Ammonia (P) [Moles/Vol] 18 umol/L Normal 11-32 [facility] Comment on above: Performed By: #### A MM ####[facility] [address] [place] [address]Dr. Tadeo Smyth AMYLASEon 11-01-2022 Amylase [Catalytic activity/Vol] 43 U/L Normal 25-115 The [facility] Comment on above: Performed By: #### M VIJI Botello LIPA, CMP ####[facility] O[address]aksoegn[address] [place], [place] [address]Dr. Tadeo Smyth CBC AUTO DIFFon 11-01-2022 BASO # 0.0 103/ul Normal 0.0-0.1 The [facility] Comment on above: Performed By: #### C BC ####[facility] Zondfmwxdf[address] [place], [place] [address]Dr. Margotnicole Smyth Basophils/100 WBC (Bld) 0.6 % Normal 0.2-2.0 The [facility] Comment on above: Performed By: #### C BC ####[facility] W[address] [place], [place] [address]Dr. Margotnicole Smyth EO # 0.1 103/ul Normal 0.0-0.7 The [facility] Comment on above: Performed By: #### C BC ####[facility] Spwef[address] [place], [place] [address]Dr. Tadeo Haja Eosinophils/100 WBC (Bld) 1.5 % Normal 0.9-7.0 The [facility] Comment on above: Performed By: #### C BC ####[facility] X[address] [place], [place] [address]Dr. Margotnicole Smyth Erythrocyte distribution width (RBC) [Ratio] 13.5 % Normal 11.0-15.0 The [facility] Comment on above: Performed By: #### C BC ####[facility] Cfaf[address]krso[address] [place], [place] [address]Dr. Margotnicole Smyth Hematocrit (Bld) [Volume fraction] 37.7 % Normal 36.0-48.0 The [facility] Comment on above: Performed By: #### C BC ####[facility] [address]xr[address] [place], [place] [address]Dr. Margotnicole Haja Hemoglobin (Bld) [Mass/Vol] 12.5 g/dL Normal 12.0-16.0 The [facility] Comment on above: Performed By: #### C BC ####[facility] [address]ci[address] [place] [address]Dr. Tadeo Haja IG # 0.02 10e3/ul Normal 0.00-0.03 [facility] Comment on above: Performed By: #### C BC ####[facility] [address] [place] [id number]. Tadeo Smyth IG % 0.4 % Normal 0.0-0.5 [facility] Comment on above: Performed By: #### C BC ####[facility] Aw[address] [place] [address]Dr. Tadeo Smyth LYMPH # 1.3 103/ul Normal 1.2-3.8 The [facility] Comment on above: Performed By: #### C BC ####[facility] Nqstxspyzm[address] [place] [address]Dr. Tadeo Smyth Lymphocytes/100 WBC (Bld) 23.9 % Normal 20.5-60.0 [facility] Comment on above: Performed By: #### C BC ####[facility] Wemfiplrhu[address] [place] [address]DrNeo Smyth MANUAL DIFF REQ NO Normal [facility] Comment on above: Performed By: #### C BC ####[facility] [address] [place] [address]Dr. Margotnicole Smyth MCH (RBC) [Entitic mass] 29.8 pg Normal 26.7-34.0 [facility] Comment on above: Performed By: #### C BC ####[facility] T[address]pc[address] [place], [place] [address]Dr. Margotnicole Smyth MCHC (RBC) [Mass/Vol] 33.2 g/dL Normal 29.9-35.2 The [facility] Comment on above: Performed By: #### C BC ####[facility] [address] [place] [phone]. Tadeo Smyth MCV (RBC) [Entitic vol] 89.8 fL Normal 81.0-99.0 [facility] Comment on above: Performed By: #### C BC ####[facility] [address] [place] [id number]. Tadeo Smyth MONO # 0.3 103/ul Normal 0.3-0.8 The [facility] Comment on above: Performed By: #### C BC ####[facility] [address]ravvue[address] [place] [phone]. Tadeo Smyth Monocytes/100 WBC (Bld) 5.2 % Normal 1.7-12.0 The [facility] Comment on above: Performed By: #### C BC ####[facility] [address] [place] [phone]. Tadeo Smyth NEUT # 3.6 103/ul Normal 1.4-6.5 The [facility] Comment on above: Performed By: #### C BC ####[facility] Oopferyaos[address] [place], [place] [address]Dr. Tadeo Smyth Neutrophils/100 WBC (Bld) 68.4 % Normal 43.0-75.0 The [facility] Comment on above: Performed By: #### C BC ####[facility] [address]qs[address]id[address] [place] [address]Dr. Tadeo Smyth Platelet mean volume (Bld) [Entitic vol] 9.0 fL Critically low 9.5-13.5 The [facility] Comment on above: Performed By: #### C BC ####[facility] [address] [place] [phone]. Tadeo Smyth PLT 356 103/ul Normal 150-450 The [facility] Comment on above: Performed By: #### C BC ####[facility] [address] [place], [place] [id number]. Tadeo Smyth RBC 4.20 106/ul Normal 4.20-5.40 The [facility] Comment on above: Performed By: #### C BC ####[facility] M[address] [place], [place] [id number]. Tadeo Smyth WBC 5.2 103/ul Normal 4.0-11.0 The [facility] Comment on above: Performed By: #### C BC ####[facility] [address] [place] [phone]. Tadeo Smyth CT ABD/PELV W CONon 11-01-19 CT ABD/PELV W CON Normal The [facility] CULTURE BLOODon 11-01-2022 Microscopic examination of blood, culture Culture Observations: NO GROWTH AT 5 DAYS. Isolate 1 BC_BA_NA Normal The [facility] Comment on above: Performed By: #### B LDCX2 ####[facility] [address] [place] [address]Dr. Tadeo Smyth Performed By: #### B LDCX1 ####[facility] [address]clso[address] [place] [address]Dr. Tadeo Smyth CULTURE URINEon 11-01-2022 CULTURE URINE Culture Observations : LIGHT GROWTH OF MIXED GENITAL SINTIA. NO POTENTIAL PATHOGENS SEEN. Normal The [facility] Comment on above: Performed By: #### U RCX ####[facility] [address]qssmv[address] [place] [address]Dr. Tadeo Smyth Covid-19 PCR (CVDTBH)on 10-07 SARS-CoV-2 (COVID-19) RNA CHEN+probe Ql (Unsp spec) Not detected Normal NOT DETECTED The [facility] Comment on above: Result Comment: When [...] for this test is supported by the Pale[employer] Professor of Health and Human Service's declaration that [...] be used). Performed By: #### C VDTBH ####[facility] [address]rcig[address] [place] [address]Dr. Tadeo Smyth LACTATE/LACTIC ACIDon 2022 Lactate [Moles/Vol] 0.7 mmol/L Normal 0.4-1.9 The [facility] Comment on above: Performed By: #### L ACT ####[facility] K[address]hrbpnd[address] [place] [address]Dr. Tadeo Smyth LIPASEon 11-01-2022 Lipase [Catalytic activity/Vol] 58.0 U/L Critically low 73.0-393.0 The [facility] Comment on above: Performed By: #### M Ayan, VIJI, LIPA, CMP ####[facility] [address] [place], [place] [address]Dr. Tadeo Smyth MAGNESIUMon 11-01-2022 Magnesium [Mass/Vol] 2.0 mg/dL Normal 1.8-2.4 The [facility] Comment on above: Performed By: #### M Ayan, VIJI, LIPA, CMP ####[facility] [address]ch[address]vb[address] [place], [place] [address]Dr. Tadeo Smyth PROF 14(COMP METB)on 023 Albumin [Mass/Vol] 3.6 g/dL Normal 3.4-5.0 [facility] Comment on above: Performed By: #### M G, VIJI, LIPA, CMP ####[facility] [address]zlqiz[address] [place], [place] [address]Dr. Tadeo Smyth Albumin/Globulin [Mass ratio] 1.0 {ratio} Normal The [facility] Comment on above: Performed By: #### M G, VIJI, LIPA, CMP ####[facility] S[address]wmbkbuuk[address] [place], [place] [address]Dr. Tadeo Smyth ALP [Catalytic activity/Vol] 164 U/L Critically high 46-116 The [facility] Comment on above: Performed By: #### M G, VIJI, LIPA, CMP ####[facility] L[address]ejxd[address] [place] [address]Dr. Tadeo Smyth ALT [Catalytic activity/Vol] 22 U/L Normal 14-59 The [facility] Comment on above: Performed By: #### M G, VIJI, LIPA, CMP ####[facility] [address]uficzm[address] [place] [address]Dr. Tadeo Smyth Anion gap [Moles/Vol] 11.5 mmol/L Normal Th e [facility] Comment on above: Performed By: #### M G, VIJI, LIPA, CMP ####[facility] K[address]wthbq[address] [place] [address]Dr. Tadeo Smyth AST [Catalytic activity/Vol] 17 U/L Normal 15-37 The [facility] Comment on above: Performed By: #### M G, VIJI, LIPA, CMP ####[facility] [address] [place], [place] [address]Dr. Tadeo Smyth Bilirubin [Mass/Vol] 0.4 mg/dL Normal 0.2-1.0 [facility] Comment on above: Performed By: #### M G, VIJI, LIPA, CMP ####[facility] Snjlnth[address] [place], [place] [address]Dr. Tadeo Smyth Calcium [Mass/Vol] 9.1 mg/dL Normal 8.5-10.1 [facility] Comment on above: Performed By: #### M Ayan, VIJI, LIPA, CMP ####[facility] R[address] [place], [place] [address]Dr. Tadeo Smyth Chloride [Moles/Vol] 105 mmol/L Normal 98-107 The [facility] Comment on above: Performed By: #### M G, VIJI, LIPA, CMP ####[facility] [address]rin[address] [place], [place] [address]Dr. Tadeo Smyth CO2 [Moles/Vol] 27.6 mmol/L Normal 21.0-32.0 The [facility] Comment on above: Performed By: #### M G, VIJI, LIPA, CMP ####[facility] Nbxhxxubat[address] [place], [place] [address]Dr. Tadeo Smyth Creatinine [Mass/Vol] 0.72 mg/dL Normal 0.55-1.02 The [facility] Comment on above: Performed By: #### M G, VIJI, LIPA, CMP ####[facility] [address]um[address] [place] [id number]. Tadeo Smyth EGFR-AF IRAQI >60 Normal >=60 The [facility] Comment on above: Performed By: #### M Ayan, VIJI, LIPA, CMP ####[facility] [address] [place] [phone]. Tadeo Smyth EGFR-NON AF IRAQI >60 Normal >=60 The [facility] Comment on above: Performed By: #### M Ayan, VIJI, LIPA, CMP ####[facility] E[address]pxpwsk[address] [place] [address]Dr. Tadeo Smyth Globulin (S) [Mass/Vol] 3.6 g/dL Normal The [facility] Comment on above: Performed By: #### M G, VIJI, LIPA, CMP ####[facility] [address]xczcua[address] [place] [address]Dr. Tadeo Smyth Glucose [Mass/Vol] 100 mg/dL Normal 74-106 The [facility] Comment on above: Performed By: #### M Ayan, VIJI, LIPA, CMP ####[facility] [address]uqwqh[address] [place] [address]Dr. Tadeo Smyth Potassium [Moles/Vol] 4.1 mmol/L Normal 3.5-5.1 The [facility] Comment on above: Performed By: #### M G, VIJI, LIPA, CMP ####[facility] Uubxzuyenj[address] [place] [address]Dr. Tadeo Smyth Protein [Mass/Vol] 7.2 g/dL Normal 6.4-8.2 The [facility] Comment on above: Performed By: #### M G, VIJI, LIPA, CMP ####[facility] [address]tgwfrfum[address] [place] [address]Dr. Tadeo Smyth Sodium [Moles/Vol] 140 mmol/L Normal 136-145 The [facility] Comment on above: Performed By: #### M G, VIJI, LIPA, CMP ####[facility] [address]zwlffx[address] [place] [address]Dr. aTdeo Smyth Urea nitrogen [Mass/Vol] 15.0 mg/dL Normal 7.0-18.0 The [facility] Comment on above: Performed By: #### M VIJI Botello LIPA, CMP ####[facility] [address]wxb[address] [place], [place] [address]Dr. Tadeo Smyth Urea nitrogen/Creatinine [Mass ratio] 20.8 mg/mg Normal The [facility] Comment on above: Performed By: #### VIJI White LIPA, CMP ####[facility] Z[address] [place], [place] [address]Dr. Tadeo Smyth UA RANDOM W/MICROSCOPICon BACTERIA TRACE Abnormal NONE SEEN The [facility] Comment on above: Performed By: #### U AMIC ####[facility] [address]qi[address] [place], [place] [address]Dr. Tadeo Smyth Bilirubin Ql (U) Negative Normal NEGATIVE The [facility] Comment on above: Performed By: #### U AMIC ####[facility] Olrfwcsekj[address] [place], [place] [address]Dr. Tadeo Smyth CAST NONE SEEN Normal NONE SEEN The [facility] Comment on above: Performed By: #### U AMIC ####[facility] Fanfxbcijd[address] [place], [place] [address]Dr. Tadeo Smyth Clarity (U) CLEAR Normal CLEAR The [facility] Comment on above: Performed By: #### U AMIC ####[facility] [address]rfkrrjvx[address] [place], [place] [address]Dr. Tadeo Smyth Color (U) LT. YELLOW Normal YELLOW The [facility] Comment on above: Performed By: #### U AMIC ####[facility] Fyydr[address]jmm[address] [place], [place] [address]Dr. Tadeo Smyth Crystals LM Nom (Urine sed) NONE SEEN Normal NONE SEEN The [facility] Comment on above: Performed By: #### U AMIC ####[facility] H[address]ffrgcfk[address] [place], [place] [address]Dr. Tadeo Smyth Epithelial cells LM Ql (Urine sed) RARE Normal NONE SEEN /RARE The [facility] Comment on above: Performed By: #### U AMIC ####[facility] I[address]kow[address] [place] [address]Dr. Tadeo Smyth Glucose Ql (U) Negative Normal NEGATIVE The [facility] Comment on above: Performed By: #### U AMIC ####[facility] Vjas[address]spuz[address] [place], [place] [address]Dr. Tadeo Smyth Hemoglobin Ql (U) TRACE-LYSED Abnormal NEGATIVE The [facility] Comment on above: Performed By: #### U AMIC ####[facility] Idwwowigkh[address] [place], [place] [address]Dr. Tadeo Smyth Ketones Ql (U) Negative Normal NEGATIVE The [facility] Comment on above: Performed By: #### U AMIC ####[facility] [address]sf[address] [place], [place] [address]Dr. Tadeo Smyth LEUKOCYTES Negative Normal NEGATIVE The [facility] Comment on above: Performed By: #### U AMIC ####[facility] Vnelopvvpk[address] [place], [place] [address]Dr. Tadeo Smyth MUCOUS NONE SEEN Normal NONE SEEN The [facility] Comment on above: Performed By: #### U AMIC ####[facility] Evopcfejyl[address] [place], [place] [address]Dr. Tadeo Smyth Nitrite Ql (U) Negative Normal NEGATIVE The [facility] Comment on above: Performed By: #### U AMIC ####[facility] Ezjettuzpg[address] [place], [place] [address]Dr. Tadeo Smyth pH (U) 6.0 [pH] Normal 5-9 The [facility] Comment on above: Performed By: #### U AMIC ####[facility] Qxumpvbflo[address] [place], [place] [address]Dr. Tadeo Smyth RBC 0-2 Normal 0-2 The [facility] Comment on above: Performed By: #### U AMIC ####[facility] X[address] [place], [place] [address]Dr. Tadeo Smyth SPEC GRAVITY 1.010 Normal 1.005-<=1.0 25 The [facility] Comment on above: Performed By: #### U AMIC ####[facility] [address]qmee[address] [place], [place] [address]Dr. Tadeo Smyth UA PROTEIN Negative Normal NEGATIVE/ TRACE The [facility] Comment on above: Performed By: #### U AMIC ####[facility] [address] [place] [phone]. Tadeo Smyth Urobilinogen Qn (U) 0.2 {Benito'U}/dL Normal 0.2 - 1. 0 The [facility] Comment on above: Performed By: #### U AMIC ####[facility] [address]xu[address] [place] [address]Dr. Tadeo Smyth WBC 0-2 Abnormal NONE SEEN The [facility] Comment on above: Performed By: #### U AMIC ####[facility] [address] [place] [address]Dr. Tadeo Smyth Activated partial thrombopla stin time (aPTT) in platelet poor plasma by coagulation aOrdered By: Conner Griffith on 10-26-2022 aPTT Coag (PPP) [Time] 30.8 s 25.1-36.5 [facility] Albumin [Mass/volume] in Ser um or PlasmaOrdered By: Conner Griffith on 10-26-2022 Albumin [Mass/Vol] 3.6 g/dL 3.2-5.5 [facility] Automated erythrocytes count in urine sediment (number/area)Ordered By: Conner Griffith on 10-26-2022 RBC Auto (Urine sed) [#/Area] 0-1 [HPF] 0-4 [facility] Automated leukocytes count i n urine sediment (number/area)Ordered By: Conner Griffith on 10-26-2022 WBC Auto (Urine sed) [#/Area] None seen [HPF] 0-4 [facility] Basophils Auto (Bld) [#/Vol] Ordered By: Conner Griffith on 10-26-2022 Basophils (Bld) [#/Vol] 0.0 10*3/uL 0.0-0.2 [facility] Basophils/100 WBC Auto (Bld) Ordered By: Conner Griffith on 10-26-2022 Basophils/100 WBC (Bld) 0.6 % . [facility] Bilirubin Test strip Ql (U)O rdered By: Conner Griffith on 10-26-2022 Bilirubin Ql (U) Negative Negative [facility] Color Auto (U)Ordered By: Kevin red Gladis on 10-26-2022 Color (U) Yellow Yellow [facility] Creatinine and Glomerular fi ltration rate.predicted panel (S/P/Bld)Ordered By: Conner Griffith on 10-26-2022 Creatinine [Mass/Vol] 0.81 mg/dL 0.44-1.03 [facility] Eosinophils Auto (Bld) [#/Vo l]Ordered By: Conner Griffith on 10-26-2022 Eosinophils (Bld) [#/Vol] 0.2 10*3/uL 0.0-0.45 [facility] Eosinophils/100 WBC Auto (Bl d)Ordered By: Conner Griffith on 10-26-2022 Eosinophils/100 WBC (Bld) 3.3 % . [facility] Erythrocyte distribution wid th Auto (RBC) [Ratio]Ordered By: Conner Griffith on 10-26-2022 Erythrocyte distribution width (RBC) [Ratio] 14.5 % 11.9-15.3 [facility] Estimated glomerular filtrat ion rate (GFR) non- AmericanOrdered By: Conner Griffith on 10-26-2022 GFR/1.73 sq M.predicted among non-blacks MDRD (S/P/Bld) [Vol rate/Area] > 60 mL/Min [facility] Globulin Calc (S) [Mass/Vol] Ordered By: Conner Griffith on 10-26-2022 Globulin (S) [Mass/Vol] 3.2 g/dL [facility] Hematocrit Auto (Bld) [Volum e fraction]Ordered By: Conner Griffith on 10-26-2022 Hematocrit (Bld) [Volume fraction] 36.7 % 34.0-46.4 [facility] Hemoglobin [Mass/volume] in BloodOrdered By: Conner Griffith on 10-26-2022 Hemoglobin (Bld) [Mass/Vol] 12.1 g/dL 11.8-15.4 [facility] Ketones Auto test strip (U) [Mass/Vol]Ordered By: Conner Griffith on 10-26-2022 Ketones (U) [Mass/Vol] Negative Negative [facility] Laboratory - Chemistry and C hemistry - challengeOrdered By: Conner Griffith on 10-26-2022 Lipase [Catalytic activity/Vol] 37.0 U/L 22-51 [facility] Laboratory - CoagulationOrde red By: Conner Griffith on 10-26-2022 PT Coag (PPP) [Time] 10.6 s 9.0-12.9 [facility] - UrinalysisOrder ed By: Conner Griffith on 10-26-2022 Hyaline casts LM Ql (Urine sed) None seen [LPF] 0-8 [facility] Leukocytes [#/volume] correc jun for nucleated erythrocytes in Blood by Automated counOrdered By: Conner Griffith on 10-26-2022 WBC corrected for nucl RBC Auto (Bld) [#/Vol] 6.3 10*3/uL 3.8-11.6 [facility] Lymphocytes Auto (Bld) [#/Vo l]Ordered By: Conner Griffith on 10-26-2022 Lymphocytes (Bld) [#/Vol] 1.9 10*3/uL 1.00-4.8 [facility] Lymphocytes/100 WBC Auto (Bl d)Ordered By: Conner Griffith on 10-26-2022 Lymphocytes/100 WBC (Bld) 29.7 % . [facility] MCH Auto (RBC) [Entitic mass ]Ordered By: Conner Griffith on 10-26-2022 MCH (RBC) [Entitic mass] 29.3 pg 24.7-34.3 [facility] MCHC Auto (RBC) [Mass/Vol]Or dered By: Conner Griffith on 10-26-2022 MCHC (RBC) [Mass/Vol] 33.1 g/dL 32.0-35.0 [facility] MCV Auto (RBC) [Entitic vol] Ordered By: Conner Griffith on 10-26-2022 MCV (RBC) [Entitic vol] 88.5 fL 80-100 [facility] Monocyte distribution width [Entitic volume] in Blood by AutomatedOrdered By: Conner Griffith on 10-26-2022 Monocyte distribution width Auto (Bld) [Entitic vol] 16.27 % 0.00-20.00 [facility] Monocytes Auto (Bld) [#/Vol] Ordered By: Conner Griffith on 10-26-2022 Monocytes (Bld) [#/Vol] 0.4 10*3/uL 0.0-0.8 [facility] Monocytes/100 WBC Auto (Bld) Ordered By: Conner Griffith on 10-26-2022 Monocytes/100 WBC (Bld) 7.1 % . [facility] Neutrophils Auto (Bld) [#/Vo l]Ordered By: Conner Griffith on 10-26-2022 Neutrophils (Bld) [#/Vol] 3.7 10*3/uL 1.8-7.7 [facility] Neutrophils/100 WBC Auto (Bl d)Ordered By: Conner Griffith on 10-26-2022 Neutrophils/100 WBC (Bld) 59.3 % . [facility] Nitrite Test strip Ql (U)Ord ered By: Conner Griffith on 10-26-2022 Nitrite Ql (U) Negative Negative [facility] No Panel InformationOrdered By: Conner Griffith on 10-26-2022 Estimated GFR () > 60 mL/Min [facility] Comment on above: GFR estimated refere nce range: According to KDOQI guidelines, <60 ml/min/1.73m2 is sufficient to diagnose a patient with chronic kidney disease. Pharmacy Creatinine Clearance (Chem 93.01 [facility] Nucleated erythrocytes [Pres ence] in Blood by Automated countOrdered By: Conner Griffith on 10-26-2022 Nucleated RBC Auto Ql (Bld) 0.3 /100{WBC} 0-0.5 [facility] Platelet mean volume Auto (B ld) [Entitic vol]Ordered By: Conner Griffith on 10-26-2022 Platelet mean volume (Bld) [Entitic vol] 7.5 fL 6.3-10.7 [facility] Platelet poor plasma interna tional normalized ratio (INR) by coagulation assay (relatOrdered By: Conner Griffith on 10-26-2022 INR Coag (PPP) [Relative time] 0.9 {INR} [facility] Comment on above: INR Therapeutic [...] 10-26-2022 Platelets (Bld) [#/Vol] 379 10*3/uL 150-450 [facility] Protein Auto test strip (U) [Mass/Vol]Ordered By: Conner Griffith on 10-26-2022 Protein (U) [Mass/Vol] Negative Negative [facility] Protein [Mass/volume] in Ser um or PlasmaOrdered By: Conner Griffith on 10-26-2022 Protein [Mass/Vol] 6.8 g/dL 6.1-7.9 [facility] RBC Auto (Bld) [#/Vol]Ordere d By: Conner Griffith on 10-26-2022 RBC (Bld) [#/Vol] 4.14 10*6/uL 3.60-5.00 [facility] Serum or plasma alanine cooley otransferase measurement without P-5'-P (enzymatic activiOrdered By: Conner Griffith on 10-26-2022 ALT No additional P-5'-P [Catalytic activity/Vol] 18 U/L 10-60 [facility] Serum or plasma albumin/glob ulin mass ratioOrdered By: Conner Griffith on 10-26-2022 Albumin/Globulin [Mass ratio] 1.1 {ratio} [facility] Serum or plasma alkaline augustin sphatase measurement (enzymatic activity/volume)Ordered By: Conner Griffith on 10-26-2022 ALP [Catalytic activity/Vol] 121 U/L 32-92 [facility] Serum or plasma anion gap de terminationOrdered By: Conner Griffith on 10-26-2022 Anion gap [Moles/Vol] 11.3 mmol/L 6.0-15.0 [facility] Serum or plasma aspartate am inotransferase measurement (enzymatic activity/volume)Ordered By: Conner Griffith on 10-26-2022 AST [Catalytic activity/Vol] 19 U/L 10-42 [facility] Serum or plasma calcium julee urement (mass/volume)Ordered By: Conner Griffith on 10-26-2022 Calcium [Mass/Vol] 8.9 mg/dL 8.2-10.2 [facility] Serum or plasma chloride julio surement (moles/volume)Ordered By: Conner Griffith on 10-26-2022 Chloride [Moles/Vol] 108 mmol/L 95-114 [facility] Serum or plasma glucose julee urement (mass/volume)Ordered By: Conner Griffith on 10-26-2022 Glucose [Mass/Vol] 95 mg/dL 70-100 [facility] Comment on above: ADA recommended refe rence rangeRandom Glucose Reference Range is dependent on time and content of last meal. Glucose of more than 200 mg/dL in a nonstressed, ambulatory subject supports the diagnosis of Diabetes Mellitus. Serum or plasma potassium me asurement (moles/volume)Ordered By: Conner Griffith on 10-26-2022 Potassium [Moles/Vol] 3.4 mmol/L 3.5-5.1 [facility] Serum or plasma sodium measu rement (moles/volume)Ordered By: oCnner Griffith on 10-26-2022 Sodium [Moles/Vol] 141 mmol/L 136-146 [facility] Serum or plasma total biliru bin measurement (mass/volume)Ordered By: Conner Griffith on 10-26-2022 Bilirubin [Mass/Vol] 0.4 mg/dL 0.3-1.2 [facility] Serum or plasma total carbon dioxide measurement (moles/volume)Ordered By: Conner Griffith on 10-26-2022 CO2 [Moles/Vol] 25.1 mmol/L 22.0-30.0 [facility] Serum or plasma urea nitroge n measurement (mass/volume)Ordered By: Conner Griffith on 10-26-2022 Urea nitrogen [Mass/Vol] 18 mg/dL 9-23 [facility] Specific gravity Auto test s trip (U) [Rel density]Ordered By: Conner Griffith on 10-26-2022 Specific gravity (U) [Rel density] 1.019 1.001-1.030 [facility] Squamous epithelial cells de tection in urine sediment by light microscopyOrdered By: Conner Griffith on 10-26-2022 Epithelial cells.squamous LM Ql (Urine sed) 1-2 [HPF] 0-2 [facility] Urine bacteria detection by automated methodOrdered By: Conner Griffith on 10-26-2022 Bacteria Auto Ql (U) None seen None Seen [facility] Urine clarity by refractomet ry automatedOrdered By: Conner Griffith on 10-26-2022 Clarity Refractometry automated (U) Clear Clear [facility] Urine glucose measurement by automated test strip (mass/volume)Ordered By: Conner Griffith on 10-26-2022 Glucose Auto test strip (U) [Mass/Vol] Normal mg/dL Normal [facility] Urine hemoglobin detection b y automated test stripOrdered By: Conner Griffith on 10-26-2022 Hemoglobin Auto test strip Ql (U) Negative Negative [facility] Urine lactic acid measuremen tOrdered By: Conner Griffith on 10-26-2022 Lactate (U) [Moles/Vol] 1.0 mmol/L 0.5-2.2 [facility] Urine leukocyte esterase det ection by automated test stripOrdered By: Conner Griffith on 10-26-2022 Leukocyte esterase Auto test strip Ql (U) 1+ Negative [facility] Urobilinogen Auto test strip (U) [Mass/Vol]Ordered By: Conner Griffith on 10-26-2022 Urobilinogen (U) [Mass/Vol] Normal mg/dL Normal [facility] WBC Auto (Bld) [#/Vol]Ordere d By: Conner Griffith on 10-26-2022 WBC (Bld) [#/Vol] 6.3 10*3/uL 3.8-11.6 [facility] pH Auto test strip (U)Ordere d By: Conner Griffith on 10-26-2022 pH (U) 6.5 [pH] 5.0-9.0 [facility] CBC AUTO DIFFon 09-21-2022 BASO # 0.0 103/ul Normal 0.0-0.1 [facility] Comment on above: Performed By: #### C BC ####[facility] [address] [place] [address]Dr. Tadeo Smyth Basophils/100 WBC (Bld) 0.4 % Normal 0.2-2.0 [facility] Comment on above: Performed By: #### C BC ####[facility] [address] [place], [place] [address]Dr. Tadeo Smyth EO # 0.1 103/ul Normal 0.0-0.7 [facility] Comment on above: Performed By: #### C BC ####[facility] [address] [place], [place] [address]Dr. Tadeo Smyth Eosinophils/100 WBC (Bld) 1.8 % Normal 0.9-7.0 [facility] Comment on above: Performed By: #### C BC ####[facility] I[address] [place], [place] [address]Dr. Tadeo Smyth Erythrocyte distribution width (RBC) [Ratio] 13.8 % Normal 11.0-15.0 [facility] Comment on above: Performed By: #### C BC ####[facility] [address] [place], [place] [address]Dr. Tadeo Smyth Hematocrit (Bld) [Volume fraction] 41.0 % Normal 36.0-48.0 [facility] Comment on above: Performed By: #### C BC ####[facility] [address] [place], [place] [address]Dr. Tadeo Smyth Hemoglobin (Bld) [Mass/Vol] 13.3 g/dL Normal 12.0-16.0 [facility] Comment on above: Performed By: #### C BC ####[facility] [address] [place], [place] [address]Dr. Tadeo Smyth IG # 0.01 10e3/ul Normal 0.00-0.03 [facility] Comment on above: Performed By: #### C BC ####[facility] K[address]se[address] [place], [place] [address]Dr. Tadeo Smyth IG % 0.1 % Normal 0.0-0.5 [facility] Comment on above: Performed By: #### C BC ####[facility] [address] [place] [address]DrNeo Smyth LYMPH # 1.7 103/ul Normal 1.2-3.8 [facility] Comment on above: Performed By: #### C BC ####[facility] [address] [place] [address]Dr. Tadeo Smyth Lymphocytes/100 WBC (Bld) 24.8 % Normal 20.5-60.0 [facility] Comment on above: Performed By: #### C BC ####[facility] [address] [place], [place] [address]DrNeo Smyth MANUAL DIFF REQ NO Normal [facility] Comment on above: Performed By: #### C BC ####[facility] [address] [place], [place] [address]DrNeo Smyth MCH (RBC) [Entitic mass] 29.0 pg Normal 26.7-34.0 [facility] Comment on above: Performed By: #### C BC ####[facility] [address] [place], [place] [address]DrNeo Smyth MCHC (RBC) [Mass/Vol] 32.4 g/dL Normal 29.9-35.2 [facility] Comment on above: Performed By: #### C BC ####[facility] [address] [place], [place] [address]DrNeo Smyth MCV (RBC) [Entitic vol] 89.3 fL Normal 81.0-99.0 [facility] Comment on above: Performed By: #### C BC ####[facility] [address] [place], [place] [address]DrNeo Smyth MONO # 0.5 103/ul Normal 0.3-0.8 [facility] Comment on above: Performed By: #### C BC ####[facility] [address] [place], [place] [address]DrNeo Smyth Monocytes/100 WBC (Bld) 6.9 % Normal 1.7-12.0 [facility] Comment on above: Performed By: #### C BC ####[facility] [address] [place] [address]Dr. Tadeo Smyth NEUT # 4.5 103/ul Normal 1.4-6.5 [facility] Comment on above: Performed By: #### C BC ####[facility] [address] [place] [address]DrNeo Smyth Neutrophils/100 WBC (Bld) 66.0 % Normal 43.0-75.0 [facility] Comment on above: Performed By: #### C BC ####[facility] [address] [place], [place] [address]DrNeo Smyth Platelet mean volume (Bld) [Entitic vol] 8.8 fL Critically low 9.5-13.5 [facility] Comment on above: Performed By: #### C BC ####[facility] Cqwme[address] [place], [place] [address]Dr. Tadeo Smyth PLT 384 103/ul Normal 150-450 [facility] Comment on above: Performed By: #### C BC ####[facility] X[address] [place], [place] [address]DrNeo Smyth RBC 4.59 106/ul Normal 4.20-5.40 [facility] Comment on above: Performed By: #### C BC ####[facility] Cf[address]uk[address] [place], [place] [address]DrNeo Smyth WBC 6.8 103/ul Normal 4.0-11.0 [facility] Comment on above: Performed By: #### C BC ####[facility] [address] [place], [place] [address]DrNeo Smyth PROF CHEM 8 (BAS METB)on Anion gap [Moles/Vol] 13.8 mmol/L Normal [facility] Comment on above: Performed By: #### B MP ####[facility] [address] [place], [place] [address]DrNeo Smyth Calcium [Mass/Vol] 9.6 mg/dL Normal 8.5-10.1 [facility] Comment on above: Performed By: #### B MP ####[facility] [address] [place] [address]Dr. Tadeo Smyth Chloride [Moles/Vol] 106 mmol/L Normal 98-107 [facility] Comment on above: Performed By: #### B MP ####[facility] [address] [place] [address]Dr. Tadeo Smyth CO2 [Moles/Vol] 25.9 mmol/L Normal 21.0-32.0 [facility] Comment on above: Performed By: #### B MP ####[facility] [address] [place], [place] [address]Dr. Tadeo Smyth Creatinine [Mass/Vol] 0.92 mg/dL Normal 0.55-1.02 [facility] Comment on above: Performed By: #### B MP ####[facility] Mg[address]cecj[address] [place], [place] [address]Dr. Tadeo Smyth EGFR-AF IRAQI >60 Normal >=60 [facility] Comment on above: Performed By: #### B MP ####[facility] [address] [place], [place] [address]Dr. Tadeo Smyth EGFR-NON AF IRAQI >60 Normal >=60 [facility] Comment on above: Performed By: #### B MP ####[facility] [address] [place], [place] [address]Dr. Tadeo Smyth Glucose [Mass/Vol] 98 mg/dL Normal 74-106 [facility] Comment on above: Performed By: #### B MP ####[facility] Wat[address] [place], [place] [address]Dr. Tadeo Smyth Potassium [Moles/Vol] 3.7 mmol/L Normal 3.5-5.1 [facility] Comment on above: Performed By: #### B MP ####[facility] I[address] [place], [place] [address]Dr. Tadeo Smyth Sodium [Moles/Vol] 142 mmol/L Normal 136-145 [facility] Comment on above: Performed By: #### B MP ####[facility] [address] [place] [address]Dr. Tadeo Smyth Urea nitrogen [Mass/Vol] 19.0 mg/dL Critically high 7.0-18.0 [facility] Comment on above: Performed By: #### B MP ####[facility] [address] [place] [address]Dr. Tadeo Smyth Urea nitrogen/Creatinine [Mass ratio] 20.7 mg/mg Normal [facility] Comment on above: Performed By: #### B MP ####[facility] [address] [place] [address]Dr. Tadeo Smyth XR KUB 1 VIEWon 09-21-2022 XR KUB 1 VIEW Normal [facility] AMYLASEon 09-18-2022 Amylase [Catalytic activity/Vol] 58 U/L Normal 25-115 [facility] Comment on above: Performed By: #### L IPA, CMP, VIJI ####[facility] [address] [place] [address]Dr. Tadeo Smyth CBC AUTO DIFFon 09-18-2022 BASO # 0.0 103/ul Normal 0.0-0.1 [facility] Comment on above: Performed By: #### C BC ####[facility] [address] [place] [address]Dr. Tadeo Haja Basophils/100 WBC (Bld) 0.3 % Normal 0.2-2.0 [facility] Comment on above: Performed By: #### C BC ####[facility] [address] [place] [address]Dr. Tadeo Smyth EO # 0.1 103/ul Normal 0.0-0.7 [facility] Comment on above: Performed By: #### C BC ####[facility] [address] [place] [address]Dr. Tadeo Haja Eosinophils/100 WBC (Bld) 1.8 % Normal 0.9-7.0 [facility] Comment on above: Performed By: #### C BC ####[facility] [address] [place] [address]Dr. Tadeo Smyth Erythrocyte distribution width (RBC) [Ratio] 13.7 % Normal 11.0-15.0 [facility] Comment on above: Performed By: #### C BC ####[facility] [address] [place], [place] [address]Dr. Tadeo Smyth Hematocrit (Bld) [Volume fraction] 37.4 % Normal 36.0-48.0 [facility] Comment on above: Performed By: #### C BC ####[facility] Addimb[address]le[address] [place], [place] [address]Dr. Tadeo Smyth Hemoglobin (Bld) [Mass/Vol] 12.3 g/dL Normal 12.0-16.0 [facility] Comment on above: Performed By: #### C BC ####[facility] C[address] [place], [place] [address]Dr. Tadeo Smyth IG # 0.02 10e3/ul Normal 0.00-0.03 [facility] Comment on above: Performed By: #### C BC ####[facility] [address] [place], [place] [address]Dr. Tadeo Smyth IG % 0.3 % Normal 0.0-0.5 [facility] Comment on above: Performed By: #### C BC ####[facility] [address] [place], [place] [address]Dr. Tadeo Smyth LYMPH # 2.2 103/ul Normal 1.2-3.8 [facility] Comment on above: Performed By: #### C BC ####[facility] [address]cs[address] [place], [place] [address]Dr. Tadeo Smyth Lymphocytes/100 WBC (Bld) 29.3 % Normal 20.5-60.0 [facility] Comment on above: Performed By: #### C BC ####[facility] [address]ycl[address] [place], [place] [address]Dr. Tadeo Smyth MANUAL DIFF REQ NO Normal [facility] Comment on above: Performed By: #### C BC ####[facility] [address] [place], [place] [id number]. Tadeo Smyth MCH (RBC) [Entitic mass] 29.0 pg Normal 26.7-34.0 [facility] Comment on above: Performed By: #### C BC ####[facility] [address] [place] [address]Dr. Tadeo Smyth MCHC (RBC) [Mass/Vol] 32.9 g/dL Normal 29.9-35.2 [facility] Comment on above: Performed By: #### C BC ####[facility] [address] [place] [address]Dr. Tadeo Smyth MCV (RBC) [Entitic vol] 88.2 fL Normal 81.0-99.0 [facility] Comment on above: Performed By: #### C BC ####[facility] [address] [place] [address]Dr. Tadeo Haja MONO # 0.5 103/ul Normal 0.3-0.8 [facility] Comment on above: Performed By: #### C BC ####[facility] [address] [place] [address]Dr. Tadeo Haja Monocytes/100 WBC (Bld) 6.4 % Normal 1.7-12.0 [facility] Comment on above: Performed By: #### C BC ####[facility] [address] [place] [address]Dr. Tadeo Smyth NEUT # 4.7 103/ul Normal 1.4-6.5 [facility] Comment on above: Performed By: #### C BC ####[facility] [address] [place], [place] [address]Dr. Tadeo Haja Neutrophils/100 WBC (Bld) 61.9 % Normal 43.0-75.0 [facility] Comment on above: Performed By: #### C BC ####[facility] [address] [place] [address]Dr. Tadeo Haja Platelet mean volume (Bld) [Entitic vol] 9.0 fL Critically low 9.5-13.5 [facility] Comment on above: Performed By: #### C BC ####[facility] [address] [place] [address]Dr. Tadeo Smyth PLT 395 103/ul Normal 150-450 [facility] Comment on above: Performed By: #### C BC ####[facility] [address] [place] [address]Dr. Tadeo Smyth RBC 4.24 106/ul Normal 4.20-5.40 [facility] Comment on above: Performed By: #### C BC ####[facility] [address] [place], [place] [address]Dr. Tadeo Smyth WBC 7.6 103/ul Normal 4.0-11.0 [facility] Comment on above: Performed By: #### C BC ####[facility] [address] [place], [place] [address]Dr. Tadeo Smy[address] CT ABD/PELV W CONon 09-18-[address] ABD/PELV W CON Normal [facility] ER URINE PROFILEon 3 Bilirubin Ql (U) SMALL Abnormal NEGATIVE [facility] Comment on above: Performed By: #### Matthew FRANCISCO UMICRO ####[facility] [address] [place], [place] [address]Dr. Tadeo Smyth Clarity (U) CLEAR Normal CLEAR [facility] Comment on above: Performed By: #### Matthew FRANCISCO UMICRO ####[facility] [address] [place], [place] [address]Dr. Tadeo Smyth Color (U) DK. YELLOW Normal YELLOW [facility] Comment on above: Performed By: #### Matthew FRANCISCO UMICRO ####[facility] [address] [place], [place] [address]Dr. Tadeo Smyth ERUAHD A micrscopic examina tion will be performed if indicated. Normal [facility] Comment on above: Performed By: #### RANDI MERCHANTICRO ####[facility] [address] [place] [address]Dr. Tadeo Smyth Glucose Ql (U) Negative Normal NEGATIVE [facility] Comment on above: Performed By: #### KAROL MERCHANT ####[facility] [address] [place] [address]Dr. Tadeo Smyth Hemoglobin Ql (U) SMALL Abnormal NEGATIVE [facility] Comment on above: Performed By: #### SANDRO MERCHANTRO ####[facility] [address] [place] [address]Dr. Tadeo Smyth Ketones Ql (U) Negative Normal NEGATIVE [facility] Comment on above: Performed By: #### SANDRO MERCHANTRO ####[facility] [address] [place], [place] [address]Dr. Tadeo Smyth LEUKOCYTES Negative Normal NEGATIVE [facility] Comment on above: Performed By: #### KAROL MERCHANT ####[facility] Ntxpdzriew[address] [place], [place] [address]Dr. Tadeo Smyth Nitrite Ql (U) Negative Normal NEGATIVE The [facility] Comment on above: Performed By: #### KAROL MERCHANT ####[facility] Twdfsmzyol[address] [place], [place] [address]Dr. Tadeo Smyth pH (U) 5.5 [pH] Normal 5-9 The [facility] Comment on above: Performed By: #### KAROL MERCHANT ####[facility] Rpomgrdney[address] [place], [place] [address]Dr. Tadeo Smyth SPEC GRAVITY >=1.030 Abnormal 1.005-<=1.0 25 [facility] Comment on above: Performed By: #### SANDRO MERCHANTRO ####[facility] Rvuzvhmnnr[address] [place], [place] [address]Dr. Tadeo Smyth UA PROTEIN TRACE Normal NEGATIVE/ TRACE The [facility] Comment on above: Performed By: #### SANDRO MERCHANTRO ####[facility] Memgahatdb[address] [place], [place] [address]Dr. Tadeo Smyth UR MICRO IND INDICATED Normal The [facility] Comment on above: Performed By: #### SANDRO MERCHANTRO ####[facility] Hpjbpfxxvd[address] [place], [place] [address]Dr. Tadeo Smyth Urobilinogen Qn (U) 0.2 {Benito'U}/dL Normal 0.2 - 1. 0 The [facility] Comment on above: Performed By: #### E KAROL FRANCISCO ####[facility] [address]vnhqj[address] [place] [address]Dr. Tadeo Smyth LACTATE/LACTIC ACIDon 2022 Lactate [Moles/Vol] 1.1 mmol/L Normal 0.4-1.9 The [facility] Comment on above: Performed By: #### L ACT ####[facility] Ngxiznbpex[address] [place], [place] [address]Dr. Tadeo Smyth LIPASEon 09-18-2022 Lipase [Catalytic activity/Vol] 75.0 U/L Normal 73.0-393.0 The [facility] Comment on above: Performed By: #### L IPA, CMP, VIJI ####[facility] Rgltswlosk[address] [place], [place] [address]Dr. Tadeo Smyth PROF 14(COMP METB)on 023 Albumin [Mass/Vol] 3.4 g/dL Normal 3.4-5.0 The [facility] Comment on above: Performed By: #### L IPA, CMP, VIJI ####[facility] Emeyktlaeu[address] [place], [place] [address]Dr. Tadeo Smyth Albumin/Globulin [Mass ratio] 0.9 {ratio} Normal The [facility] Comment on above: Performed By: #### L IPA, CMP, VIJI ####[facility] Gdauwaeixi[address] [place], [place] [address]Dr. Tadeo Smyth ALP [Catalytic activity/Vol] 164 U/L Critically high 46-116 The [facility] Comment on above: Performed By: #### L IPA, CMP, VIJI ####[facility] Igszhyimtf[address] [place], [place] [address]Dr. Tadeo Smyth ALT [Catalytic activity/Vol] 29 U/L Normal 14-59 The [facility] Comment on above: Performed By: #### L IPA, CMP, VIJI ####[facility] Pgvruoelrw[address] [place], [place] [address]Dr. Tadeo Smyth Anion gap [Moles/Vol] 12.3 mmol/L Normal Th e [facility] Comment on above: Performed By: #### L IPA, CMP, VIJI ####[facility] Jlgklvlkwm[address] [place] [address]Dr. Tadeo Smyth AST [Catalytic activity/Vol] 30 U/L Normal 15-37 The [facility] Comment on above: Performed By: #### L IPA, CMP, VIJI ####[facility] Lgesvkbatc[address] [place], [place] [address]Dr. Tadeo Smyth Bilirubin [Mass/Vol] 0.3 mg/dL Normal 0.2-1.0 The [facility] Comment on above: Performed By: #### L IPA CMP, VIJI ####[facility] Irzbskqodf[address] [place], [place] [address]Dr. Tadeo Smyth Calcium [Mass/Vol] 8.9 mg/dL Normal 8.5-10.1 The [facility] Comment on above: Performed By: #### L IPA CMP, VIJI ####[facility] Dbdvibmemh[address] [place], [place] [address]Dr. Tadeo Smyth Chloride [Moles/Vol] 103 mmol/L Normal 98-107 The [facility] Comment on above: Performed By: #### L IPA, CMP, VIJI ####[facility] Flalquhqoj[address] [place], [place] [address]Dr. Tadeo Smyth CO2 [Moles/Vol] 27.8 mmol/L Normal 21.0-32.0 The [facility] Comment on above: Performed By: #### L IPA, CMP, VIJI ####[facility] Owoiuqxhlx[address] [place], [place] [address]Dr. Tadeo Smyth Creatinine [Mass/Vol] 0.89 mg/dL Normal 0.55-1.02 The [facility] Comment on above: Performed By: #### L IPA, CMP, VIJI ####[facility] Xrupsojstp[address] [place], [place] [address]Dr. Tadeo Smyth EGFR-AF IRAQI >60 Normal >=60 The [facility] Comment on above: Performed By: #### L IPA, CMP, VIJI ####[facility] Tcybxvmpta[address] [place] [address]Dr. Tadeo Smyth EGFR-NON AF IRAQI >60 Normal >=60 The [facility] Comment on above: Performed By: #### L DIANN HALL, VIJI ####[facility] Znecdagumw5[address] [place] [address]Dr. Tadeo Smyth Globulin (S) [Mass/Vol] 3.9 g/dL Normal [facility] Comment on above: Performed By: #### L IPA CMP, VIJI ####[facility] Oawicutbyd[address] [place], [place] [address]Dr. Tadeo Smyth Glucose [Mass/Vol] 96 mg/dL Normal 74-106 The [facility] Comment on above: Performed By: #### L ISABEL CMP, VIJI ####[facility] Zwatrsjpno[address] [place], [place] [address]Dr. Tadeo Smyth Potassium [Moles/Vol] 4.1 mmol/L Normal 3.5-5.1 The [facility] Comment on above: Performed By: #### L ISABEL CMP, VIJI ####[facility] Rzijxajfuo[address] [place], [place] [address]Dr. Tadeo Smyth Protein [Mass/Vol] 7.3 g/dL Normal 6.4-8.2 The [facility] Comment on above: Performed By: #### L ISABEL CMP, VIJI ####[facility] Iypbkynupd[address] [place], [place] [address]Dr. Tadeo Smyth Sodium [Moles/Vol] 139 mmol/L Normal 136-145 The [facility] Comment on above: Performed By: #### L IPA CMP, VIJI ####[facility] Onunzrbpyf[address] [place], [place] [address]Dr. Tadeo Smyth Urea nitrogen [Mass/Vol] 19.0 mg/dL Critically high 7.0-18.0 The [facility] Comment on above: Performed By: #### L IPA CMP, VIJI ####[facility] Mnnjaddmlq[address] [place], [place] [address]Dr. Tadeo Smyth Urea nitrogen/Creatinine [Mass ratio] 21.3 mg/mg Normal The [facility] Comment on above: Performed By: #### L IPA CMP, VIJI ####[facility] Drsbrubnym[address] [place] [address]Dr. Tadeo Smyth URINE MICROSCOPIC ONLYon BACTERIA TRACE Abnormal NONE SEEN The [facility] Comment on above: Performed By: #### Matthew FRANCISCO UMICRO ####[facility] Ixzvgkjdua33[address] [place] [address]Dr. Tadeo Smyth Bacteria identified Cx Nom (U) NOT INDICATED Normal The [facility] Comment on above: Performed By: #### Matthew FRANCISCO UMICRO ####[facility] Tvuicorwqe45[address] [place] [address]Dr. Tadeo Smyth CAST NONE SEEN Normal NONE SEEN The [facility] Comment on above: Performed By: #### Matthew FRANCISCO UMICRO ####[facility] Jccinehkjp13[address] [place], [place] [address]Dr. Tadeo Smyth Crystals LM Nom (Urine sed) SEEN Abnormal NONE SEEN The [facility] Comment on above: Performed By: #### Matthew FRANCISCO UMICRO ####[facility] Mcsiajowua[address] [place], [place] [address]Dr. Tadeo Smyth Epithelial cells LM Ql (Urine sed) RARE Normal NONE SEEN /RARE The [facility] Comment on above: Performed By: #### Matthew FRANCISCO UMICRO ####[facility] Njvqxxdgge[address] [place], [place] [address]Dr. Tadeo Smyth MUCOUS TRACE Abnormal NONE SEEN The [facility] Comment on above: Performed By: #### SANDRO MERCHANTRO ####[facility] Yqkyoiynsg[address] [place], [place] [address]Dr. Tadeo Smyth RBC 0-2 Normal 0-2 The [facility] Comment on above: Performed By: #### SANDRO MERCHANTRO ####[facility] Oszjrusrus[address] [place], [place] [address]Dr. Tadeo Smyth WBC 0-2 Abnormal NONE SEEN The [facility] Comment on above: Performed By: #### SANDRO MERCHANTRO ####[facility] Oqjgbvozml[address] [place], [place] [address]Dr. Tadeo Smyth CBC AUTO DIFFon 09-14-2022 BASO # 0.0 103/ul Normal 0.0-0.1 The [facility] Comment on above: Performed By: #### C BC ####[facility] Nikcessqaq[address] [place] [id number]. Tadeo Haja Basophils/100 WBC (Bld) 0.3 % Normal 0.2-2.0 The [facility] Comment on above: Performed By: #### C BC ####[facility] Djnqsbuvmz[address] [place] [address]Dr. Tadeo Haja EO # 0.2 103/ul Normal 0.0-0.7 The [facility] Comment on above: Performed By: #### C BC ####[facility] Mqhkgufrzq[address] [place], [place] [address]Dr. Tadeo Haja Eosinophils/100 WBC (Bld) 1.1 % Normal 0.9-7.0 The [facility] Comment on above: Performed By: #### C BC ####[facility] Ufgvnpwhbr[address] [place], [place] [address]Dr. Tadeo Smyth Erythrocyte distribution width (RBC) [Ratio] 13.7 % Normal 11.0-15.0 The [facility] Comment on above: Performed By: #### C BC ####[facility] Ef[address]wo[address] [place], [place] [id number]. Tadeo Smyth Hematocrit (Bld) [Volume fraction] 41.3 % Normal 36.0-48.0 The [facility] Comment on above: Performed By: #### C BC ####[facility] [address]ibzunmcel[address] [place], [place] [id number]. Tadeo Smyth Hemoglobin (Bld) [Mass/Vol] 13.6 g/dL Normal 12.0-16.0 The [facility] Comment on above: Performed By: #### C BC ####[facility] Calnjzuaxg[address] [place] [address]Dr. Tadeo Smyth IG # 0.05 10e3/ul Critically high 0.00-0.03 The [facility] Comment on above: Performed By: #### C BC ####[facility] [address] [place] [id number]. Tadeo Smyth IG % 0.4 % Normal 0.0-0.5 The [facility] Comment on above: Performed By: #### C BC ####[facility] Gehsmhgavr[address] [place] [address]Dr. Tadeo Haja LYMPH # 2.2 103/ul Normal 1.2-3.8 The [facility] Comment on above: Performed By: #### C BC ####[facility] Ykbehrcpcq0625 [place] [address]Dr. Tadeo Haja Lymphocytes/100 WBC (Bld) 16.3 % Critically low 20.5-60.0 The [facility] Comment on above: Performed By: #### C BC ####[facility] Grmysewiuw[address] [place] [address]Dr. Margotnicole Smyth MANUAL DIFF REQ NO Normal The [facility] Comment on above: Performed By: #### C BC ####[facility] Oyqyofrmmw[address] [place] [address]Dr. Tadeo Smyth MCH (RBC) [Entitic mass] 28.9 pg Normal 26.7-34.0 The [facility] Comment on above: Performed By: #### C BC ####[facility] Ooveafkjyo[address] [place], [place] [address]Dr. Tadeo Smyth MCHC (RBC) [Mass/Vol] 32.9 g/dL Normal 29.9-35.2 The [facility] Comment on above: Performed By: #### C BC ####[facility] Zr[address]vpc[address] [place], [place] [address]Dr. Tadeo Haja MCV (RBC) [Entitic vol] 87.9 fL Normal 81.0-99.0 The [facility] Comment on above: Performed By: #### C BC ####[facility] Rxdof[address]gjf[address] [place], [place] [address]Dr. Tadeo Smyth MONO # 0.7 103/ul Normal 0.3-0.8 The [facility] Comment on above: Performed By: #### C BC ####[facility] Cvsjcajbuw32[address] [place] [address]Dr. Tadeo Smyth Monocytes/100 WBC (Bld) 5.1 % Normal 1.7-12.0 The [facility] Comment on above: Performed By: #### C BC ####[facility] Fzrjtuzdvw74[address] [place] [address]Dr. Tadeo Smyth NEUT # 10.3 103/ul Critically high 1.4-6.5 The [facility] Comment on above: Performed By: #### C BC ####[facility] Gnpzbbewsp5426 [place] [address]Dr. Tadeo Smyth Neutrophils/100 WBC (Bld) 76.8 % Critically high 43.0-75.0 The [facility] Comment on above: Performed By: #### C BC ####[facility] Zzfkpiqdyj38[address] [place] [address]Dr. Tadeo Smyth Platelet mean volume (Bld) [Entitic vol] 8.8 fL Critically low 9.5-13.5 The [facility] Comment on above: Performed By: #### C BC ####[facility] [address]qkvenjnf[address] [place], [place] [address]Dr. Tadeo Smyth PLT 438 103/ul Normal 150-450 The [facility] Comment on above: Performed By: #### C BC ####[facility] Qwif[address]otmq[address] [place], [place] [address]Dr. Tadeo Smyth RBC 4.70 106/ul Normal 4.20-5.40 The [facility] Comment on above: Performed By: #### C BC ####[facility] L[address]bwefhyl[address] [place], [place] [address]Dr. Tadeo Smyth WBC 13.4 103/ul Critically high 4.0-11.0 The [facility] Comment on above: Performed By: #### C BC ####[facility] [address] [place], [place] [address]Dr. Tadeo Smyth ER URINE PROFILEon 3 Bilirubin Ql (U) Negative Normal NEGATIVE The [facility] Comment on above: Performed By: #### E KAROL FRANCISCO ####[facility] Wnmkcpwfoz[address] [place], [place] [address]Dr. Tadeo Smyth Clarity (U) CLEAR Normal CLEAR The [facility] Comment on above: Performed By: #### SANDRO MERCHANTRO ####[facility] Wipgwadpnh[address] [place] [address]Dr. Tadeo Smyth Color (U) LT. YELLOW Normal YELLOW The [facility] Comment on above: Performed By: #### SANDRO MERCHANTRO ####[facility] Iezvhtjehb[address]46 [place] [address]Dr. Tadeo Smyth ERUAHD A micrscopic examina tion will be performed if indicated. Normal The [facility] Comment on above: Performed By: #### SANDRO MERCHANTRO ####[facility] Cpmyfblkvs3560 [place] [address]Dr. Tadeo Smyth Glucose Ql (U) Negative Normal NEGATIVE The [facility] Comment on above: Performed By: #### SANDRO MERCHANTRO ####[facility] Qgsztmptku6625 [place] [address]Dr. Tadeo Smyth Hemoglobin Ql (U) TRACE-INTACT Abnormal NEGATIVE [facility] Comment on above: Performed By: #### SANDRO MERCHANTRO ####[facility] Jwhswdsfhf[address] [place], [place] [address]Dr. Tadeo Smyth Ketones Ql (U) Negative Normal NEGATIVE The [facility] Comment on above: Performed By: #### SANDRO MERCHANTRO ####[facility] Bu[address]qdirle[address] [place] [address]Dr. Tadeo Smyth LEUKOCYTES Negative Normal NEGATIVE The [facility] Comment on above: Performed By: #### RANDI MERCHANTICRO ####[facility] Rxygipraut[address] [place] [address]Dr. Tadeo Smyth Nitrite Ql (U) Negative Normal NEGATIVE The [facility] Comment on above: Performed By: #### Matthew FRANCISCO UMICRO ####[facility] Qkuokhvqzj0081 [place] [address]Dr. Tadeo Smyth pH (U) 6.5 [pH] Normal 5-9 The [facility] Comment on above: Performed By: #### KAROL MERCHANT ####[facility] Heftvbnzqg[address] [place] [address]Dr. Tadeo Smyth SPEC GRAVITY 1.020 Normal 1.005-<=1.0 25 The [facility] Comment on above: Performed By: #### KAROL MERCHANT ####[facility] Hmsfh[address]au[address] [place] [address]Dr. Tadeo Smyth UA PROTEIN Negative Normal NEGATIVE/ TRACE The [facility] Comment on above: Performed By: #### KAROL MERCHANT ####[facility] Dzvhlchbeu[address] [place] [address]Dr. Tadeo Smyth UR MICRO IND INDICATED Normal The [facility] Comment on above: Performed By: #### KAROL MECRHANT ####[facility] Orstchghku[address] [place], [place] [address]Dr. Tadeo Smyth Urobilinogen Qn (U) 0.2 {Benito'U}/dL Normal 0.2 - 1. 0 [facility] Comment on above: Performed By: #### KAROL MERCHANT ####[facility] Yan[address] [place], [place] [address]Dr. Tadeo Smyth LIPASEon 09-14-2022 Lipase [Catalytic activity/Vol] 117.0 U/L Normal 73.0-393.0 The [facility] Comment on above: Performed By: #### H STROPN, CMP, LIPA ####[facility] F[address]lfhram[address] [place], [place] [address]Dr. Tadeo Smyth PROF 14(COMP METB)on 023 Albumin [Mass/Vol] 3.5 g/dL Normal 3.4-5.0 The [facility] Comment on above: Performed By: #### H STROPN, CMP, LIPA ####[facility] Vngaslnieb[address] [place], [place] [address]Dr. Tadeo Smyth Albumin/Globulin [Mass ratio] 0.8 {ratio} Normal The [facility] Comment on above: Performed By: #### H STROPN, CMP, LIPA ####[facility] Mcskhsunxt[address] [place] [address]Dr. Tadeo Smyth ALP [Catalytic activity/Vol] 180 U/L Critically high 46-116 The [facility] Comment on above: Performed By: #### H STROPN, CMP, LIPA ####[facility] Xyxejwzwvr59[address] [place] [address]Dr. Tadeo Smyth ALT [Catalytic activity/Vol] 25 U/L Normal 14-59 [facility] Comment on above: Performed By: #### H STROPN, CMP, LIPA ####[facility] Lvgszbwguc55[address] [place] [address]Dr. Tadeo Smyth Anion gap [Moles/Vol] 14.4 mmol/L Normal Th e [facility] Comment on above: Performed By: #### H STROPN, CMP, LIPA ####[facility] Xlwdsvqmef033[address] [place] [address]Dr. Tadeo Smyth AST [Catalytic activity/Vol] 14 U/L Critically low 15-37 [facility] Comment on above: Performed By: #### H STROPN, CMP, LIPA ####[facility] Isjkgdaptc57[address] [place] [address]Dr. Tadeo Smyth Bilirubin [Mass/Vol] 0.2 mg/dL Normal 0.2-1.0 [facility] Comment on above: Performed By: #### H STROPN, CMP, LIPA ####[facility] Tzxjwckijo28[address] [place] [address]Dr. Tadeo Smyth Calcium [Mass/Vol] 9.4 mg/dL Normal 8.5-10.1 The [facility] Comment on above: Performed By: #### H STROPN, CMP, LIPA ####[facility] Bbft[address]oyins[address] [place] [address]Dr. Tadeo Smyth Chloride [Moles/Vol] 107 mmol/L Normal 98-107 The [facility] Comment on above: Performed By: #### H STROPN, CMP, LIPA ####[facility] Pknyufvkzr15[address] [place] [address]Dr. Tadeo Smyth CO2 [Moles/Vol] 23.9 mmol/L Normal 21.0-32.0 [facility] Comment on above: Performed By: #### H STROPN, CMP, LIPA ####[facility] Vpsrflqxhu[address] [place] [address]Dr. Tadeo Smyth Creatinine [Mass/Vol] 0.91 mg/dL Normal 0.55-1.02 The [facility] Comment on above: Performed By: #### H STROPN, CMP, LIPA ####[facility] Qdmsvhlqhs7[address] [place] [address]Dr. Tadeo Smyth EGFR-AF IRAQI >60 Normal >=60 The [facility] Comment on above: Performed By: #### H STROPN, CMP, LIPA ####[facility] Vhtcvwspyt15[address] [place] [address]Dr. Tadeo Smyth EGFR-NON AF IRAQI >60 Normal >=60 The [facility] Comment on above: Performed By: #### H STROPN, CMP, LIPA ####[facility] [address]ri[address]zmmzf[address] [place], [place] [address]Dr. Tadeo Smyth Globulin (S) [Mass/Vol] 4.2 g/dL Normal The [facility] Comment on above: Performed By: #### H STROPN, CMP, LIPA ####[facility] Lyuh[address]dhei[address] [place], [place] [address]Dr. Tadeo Smyth Glucose [Mass/Vol] 101 mg/dL Normal 74-106 The [facility] Comment on above: Performed By: #### H STROPN, CMP, LIPA ####[facility] Zkvwtnkzoz5584 [place] [address]Dr. Tadeo Smyth Potassium [Moles/Vol] 3.3 mmol/L Critically low 3.5-5.1 The [facility] Comment on above: Performed By: #### H STROPN, CMP, LIPA ####[facility] Lwensynyyf[address] [place] [address]Dr. Tadeo Smyth Protein [Mass/Vol] 7.7 g/dL Normal 6.4-8.2 The [facility] Comment on above: Performed By: #### H STROPN, CMP, LIPA ####[facility] [address] [place] [id number]. Tadeo Smyth Sodium [Moles/Vol] 142 mmol/L Normal 136-145 The [facility] Comment on above: Performed By: #### H STROPN, CMP, LIPA ####[facility] [address]wniftllsq[address] [place] [id number]. Tadeo Smyth Urea nitrogen [Mass/Vol] 17.0 mg/dL Normal 7.0-18.0 The [facility] Comment on above: Performed By: #### H STROPN, CMP, LIPA ####[facility] Tgpzcrrnti5[address] [place] [id number]. Tadeo Smyth Urea nitrogen/Creatinine [Mass ratio] 18.7 mg/mg Normal The [facility] Comment on above: Performed By: #### H STROPN, CMP, LIPA ####[facility] Uoucxhybgb[address] [place] [address]Dr. Tadeo Smyth TROPONIN, HIGH SENSITIVITYon 09-14-2022 HSTROP 46.6 pg/mL Normal 4.0-51.3 The [facility] Comment on above: Result Comment: CUT- OFF POINTS HAVE BEEN ESTABLISHED BASED ON THE FOURTH UNIVERSAL DEFINITIONS OF MYOCARDIALINFARCTION. THE UPPER REFERENCE LIMIT (URL) OF TROPONIN, DEFINED THE 99TH PERCENTILE OFcTnI DISTRIBUTION IN A REFERENCE POPULATION, HAS BEEN CONFIRMED THE DECISION THRESHOLDFOR PA DIAGNOSIS. Performed By: #### H STROYAZMIN, CMP, LIPA ####[facility] [address]tmgl[address]xlpy24[address] [place] [address]Dr. Tadeo Haja URINE MICROSCOPIC ONLYon BACTERIA NONE SEEN Normal NONE SEEN The [facility] Comment on above: Performed By: #### E NOLAN UMICRO ####[facility] [address]tdsllm[address] [place] [address]Dr. Tadeo Haja Bacteria identified Cx Nom (U) NOT INDICATED Normal The [facility] Comment on above: Performed By: #### Matthew FRANCISCO UMICRO ####[facility] Ydjdpqcvln11[address] [place] [id number]. Margotnicole Smyth CAST NONE SEEN Normal NONE SEEN The [facility] Comment on above: Performed By: #### SANDRO MERCHANTRO ####[facility] Hsvogicifa[address] [place] [address]Dr. Margotnicole Smyth Crystals LM Nom (Urine sed) NONE SEEN Normal NONE SEEN The [facility] Comment on above: Performed By: #### Matthew FRANCISCO UMICRO ####[facility] [facility] [address] [place] [address]Dr. Tadeo Smyth Epithelial cells LM Ql (Urine sed) FEW Abnormal NONE SEEN /RARE [facility] Comment on above: Performed By: #### Matthew FRANCISCO UMICRO ####[facility] [address] [place] [address]Dr. Tadeo Smyth MUCOUS MODERATE Abnormal NONE SEEN [facility] Comment on above: Performed By: #### Matthew FRANCISCO UMCHINEDURO ####[facility] [address]mcvj[address] [place] [address]Dr. aTdeo Smyth RBC 0-2 Normal 0-2 [facility] Comment on above: Performed By: #### Matthew FRANCISCO UMICRO ####[facility] Unsa[address]ql[address] [place] [address]Dr. Tadeo Smyth WBC NONE SEEN Normal NONE SEEN [facility] Comment on above: Performed By: #### SANDRO MERCHANTRO ####[facility] [address]kvrq[address] [place] [address]Dr. Margotnicole Smyth XR ABD FLAT UP_PA Kasey 09-14 XR ABD FLAT UP_PA CH Normal [facility] VC COMP CONSULTATIONon 09-06 VC COMP CONSULTATION Normal [facility] VC VENOUS REFLUX MACARIO LMTon 0 09-06-2022 VC VENOUS REFLUX MACARIO LMT Normal [facility] XR KUB 1 VIEWon 08-18-2022 XR KUB 1 VIEW Normal [facility] US RUBENS DOP LEG RTon 08-11-20 US RUBENS DOP LEG RT Normal [facility] AMYLASEon 08-08-2022 Amylase [Catalytic activity/Vol] 64 U/L Normal 25-115 [facility] Comment on above: Performed By: #### C MP, VIJI, LIPA, CMADM ####[facility] [address] [place] [id number]. Tadeo Smyth CARDIAC NORA ADMITon 022 CK [Catalytic activity/Vol] 127 U/L Normal 26-192 [facility] Comment on above: Performed By: #### C MP, VIJI, LIPA, CMADM ####[facility] [address] [place] [address]Dr. Margotnicole Smyth CK.MB [Mass/Vol] 1.71 ng/mL Normal <=3.60 [facility] Comment on above: Performed By: #### C MP, VIJI, LIPA, CMADM ####[facility] G[address]drxun[address] [place] [address]Dr. Tadeo Haja HSTROP 36.7 pg/mL Normal 4.0-51.3 [facility] Comment on above: Result Comment: CUT- OFF POINTS HAVE BEEN ESTABLISHED BASED ON THE FOURTH UNIVERSAL DEFINITIONS OF MYOCARDIALINFARCTION. THE UPPER REFERENCE LIMIT (URL) OF TROPONIN, DEFINED THE 99TH PERCENTILE OFcTnI DISTRIBUTION IN A REFERENCE POPULATION, HAS BEEN CONFIRMED THE DECISION THRESHOLDFOR PA DIAGNOSIS. Performed By: #### C MP, VIJI, LIPA, CMADM ####[facility] Vwcodz[address]fe[address] [place] [address]Dr. Tadeo Haja AAKASH 23 ng/mL Normal 9-82 [facility] Comment on above: Performed By: #### C MP, VIJI, LIPA, CMADM ####[facility] Grmvhsvxtm[address] [place] [address]Dr. Tadeo Haja CBC AUTO DIFFon 08-08-2022 BASO # 0.0 103/ul Normal 0.0-0.1 [facility] Comment on above: Performed By: #### C BC ####[facility] Rgytbzlplj[address] [place] [address]Dr. Margotnicole Smyth Basophils/100 WBC (Bld) 0.4 % Normal 0.2-2.0 [facility] Comment on above: Performed By: #### C BC ####[facility] Lfwctysrwt[address] [place] [address]Dr. Tadeo Smyth EO # 0.1 103/ul Normal 0.0-0.7 [facility] Comment on above: Performed By: #### C BC ####[facility] V[address]bswsu[address] [place], [place] [address]Dr. Tadeo Smyth Eosinophils/100 WBC (Bld) 1.5 % Normal 0.9-7.0 [facility] Comment on above: Performed By: #### C BC ####[facility] M[address]ljvet[address] [place], [place] [address]Dr. Tadeo Smyth Erythrocyte distribution width (RBC) [Ratio] 13.5 % Normal 11.0-15.0 [facility] Comment on above: Performed By: #### C BC ####[facility] Sbjdhubyph[address] [place], [place] [address]Dr. Tadeo Smyth Hematocrit (Bld) [Volume fraction] 37.0 % Normal 36.0-48.0 [facility] Comment on above: Performed By: #### C BC ####[facility] Jweipkeqrz[address] [place], [place] [address]Dr. Tadeo Smyth Hemoglobin (Bld) [Mass/Vol] 12.0 g/dL Normal 12.0-16.0 [facility] Comment on above: Performed By: #### C BC ####[facility] Cweetwjyux[address] [place], [place] [address]Dr. Tadeo Smyth IG # 0.02 10e3/ul Normal 0.00-0.03 [facility] Comment on above: Performed By: #### C BC ####[facility] Wjjozwlvvd[address] [place], [place] [address]Dr. Tadeo Smyth IG % 0.3 % Normal 0.0-0.5 [facility] Comment on above: Performed By: #### C BC ####[facility] Smquliltpq[address] [place], [place] [address]Dr. Tadeo Smyth LYMPH # 2.0 103/ul Normal 1.2-3.8 [facility] Comment on above: Performed By: #### C BC ####[facility] Jhyfeptgjl[address] [place], [place] [address]Dr. Tadeo Smyth Lymphocytes/100 WBC (Bld) 27.9 % Normal 20.5-60.0 [facility] Comment on above: Performed By: #### C BC ####[facility] Ymnsevbbmc[address] [place] [address]DrNeo Smyth MANUAL DIFF REQ NO Normal [facility] Comment on above: Performed By: #### C BC ####[facility] [address]lcmdfhi[address] [place] [address]Dr. Tadeo Smyth MCH (RBC) [Entitic mass] 28.9 pg Normal 26.7-34.0 [facility] Comment on above: Performed By: #### C BC ####[facility] Lsqlkrbthc26[address] [place] [address]Dr. Tadeo Smyth MCHC (RBC) [Mass/Vol] 32.4 g/dL Normal 29.9-35.2 [facility] Comment on above: Performed By: #### C BC ####[facility] Nupvhtqibt[address] [place], [place] [address]Dr. Tadeo Smyth MCV (RBC) [Entitic vol] 89.2 fL Normal 81.0-99.0 [facility] Comment on above: Performed By: #### C BC ####[facility] Pmmuwllz[address] [place], [place] [address]DrNeo Smyth MONO # 0.5 103/ul Normal 0.3-0.8 [facility] Comment on above: Performed By: #### C BC ####[facility] Mzslhqkgqk[address] [place], [place] [address]Dr. Tadeo Smyth Monocytes/100 WBC (Bld) 6.7 % Normal 1.7-12.0 [facility] Comment on above: Performed By: #### C BC ####[facility] Fyg[address]ps[address] [place], [place] [address]DrNeo Smyth NEUT # 4.5 103/ul Normal 1.4-6.5 [facility] Comment on above: Performed By: #### C BC ####[facility] Npgpfnhfzj[address] [place], [place] [address]DrNeo Smyth Neutrophils/100 WBC (Bld) 63.2 % Normal 43.0-75.0 [facility] Comment on above: Performed By: #### C BC ####[facility] [address]wnjcrbjc[address] [place] [address]Dr. Tadeo Smyth Platelet mean volume (Bld) [Entitic vol] 9.0 fL Critically low 9.5-13.5 [facility] Comment on above: Performed By: #### C BC ####[facility] Gsqtaumhbw[address] [place] [address]Dr. Tadeo Smyth PLT 382 103/ul Normal 150-450 [facility] Comment on above: Performed By: #### C BC ####[facility] Jjrqwprofn[address] [place], [place] [address]Dr. Tadeo Smyth RBC 4.15 106/ul Critically low 4.20-5.40 [facility] Comment on above: Performed By: #### C BC ####[facility] Uykmcpzfkh[address] [place], [place] [address]Dr. Tadeo Smyth WBC 7.1 103/ul Normal 4.0-11.0 [facility] Comment on above: Performed By: #### C BC ####[facility] Scbokuicck[address] [place], [place] [address]Dr. Tadeo Smyth CT ABD/PELV W CONon 08-08-[address] ABD/PELV W CON Normal [facility] ER URINE PROFILEon 2 Bilirubin Ql (U) Negative Normal NEGATIVE [facility] Comment on above: Performed By: #### KAROL MERCHANT ####[facility] Buq[address] [place], [place] [address]Dr. Tadeo mSyth Clarity (U) CLEAR Normal CLEAR [facility] Comment on above: Performed By: #### SANDRO MERCHANTRO ####[facility] Onvdfnfzsg[address] [place], [place] [address]Dr. Tadeo Smyth Color (U) YELLOW Normal YELLOW [facility] Comment on above: Performed By: #### SANDRO MERCHANTRO ####[facility] Zakmrzdvkl[address] [place], [place] [address]Dr. Yilan Smyth ERUAHD A micrscopic examina tion will be performed if indicated. Normal [facility] Comment on above: Performed By: #### SANDRO MERCHANTRO ####[facility] Gmjwlbogcd[address] [place], [place] [address]Dr. Tadeo Smyth Glucose Ql (U) Negative Normal NEGATIVE [facility] Comment on above: Performed By: #### SANDRO MERCHANTRO ####[facility] Arrproajiq[address] [place], [place] [address]Dr. Margotnicole Haja Hemoglobin Ql (U) TRACE-LYSED Abnormal NEGATIVE [facility] Comment on above: Performed By: #### SANDRO MERCHANTRO ####[facility] Fvnqlidjmq[address] [place], [place] [address]Dr. Tadeo Smyth Ketones Ql (U) TRACE Abnormal NEGATIVE [facility] Comment on above: Performed By: #### SANDRO MERCHANTRO ####[facility] Revkndpocz[address] [place], [place] [address]Dr. Tadeo Smyth LEUKOCYTES Negative Normal NEGATIVE [facility] Comment on above: Performed By: #### SANDRO MERCHANTRO ####[facility] Flisufzxrv[address] [place], [place] [address]Dr. Tadeo Smyth Nitrite Ql (U) Negative Normal NEGATIVE [facility] Comment on above: Performed By: #### SANDRO MERCHANTRO ####[facility] Mitdbltbim[address] [place], [place] [address]Dr. Tadeo Smyth pH (U) 6.0 [pH] Normal 5-9 [facility] Comment on above: Performed By: #### SANDRO MERCHANTRO ####[facility] Mgwtgjyuzc[address] [place], [place] [address]Dr. Tadeo Smyth SPEC GRAVITY >=1.030 Abnormal 1.005-<=1.0 25 [facility] Comment on above: Performed By: #### SANDRO MERCHANTRO ####[facility] Znrzgrxhko[address] [place], [place] [address]Dr. Tadeo Smyth UA PROTEIN TRACE Normal NEGATIVE/ TRACE The [facility] Comment on above: Performed By: #### SANDRO MERCHANTRO ####[facility] V[address]ujvrd[address] [place] [address]Dr. Tadeo Smyth UR MICRO IND INDICATED Normal [facility] Comment on above: Performed By: #### SANDRO MERCHANTRO ####[facility] Rkkwpmbkcl75[address] [place] [address]Dr. Tadeo Smyth Urobilinogen Qn (U) 0.2 {Benito'U}/dL Normal 0.2 - 1. 0 [facility] Comment on above: Performed By: #### SANDRO MERCHANTRO ####[facility] [address]hekisba[address] [place] [address]Dr. Tadeo Smyth LACTATE/LACTIC ACIDon 2021 Lactate [Moles/Vol] 1.3 mmol/L Normal 0.4-1.9 [facility] Comment on above: Performed By: #### L ACT ####[facility] Fitnpcrkuy[address] [place], [place] [address]Dr. Tadeo Smyth LIPASEon 08-08-2022 Lipase [Catalytic activity/Vol] 120.0 U/L Normal 73.0-393.0 [facility] Comment on above: Performed By: #### C MP, VIJI, LIPA, CMADM ####[facility] Ct[address]qovs[address] [place] [address]Dr. Tadeo Smyth PROF 14(COMP METB)on 022 Albumin [Mass/Vol] 3.8 g/dL Normal 3.4-5.0 [facility] Comment on above: Performed By: #### C MP, VIJI, LIPA, CMADM ####[facility] W[address]imifv[address] [place] [address]Dr. Tadeo Smyth Albumin/Globulin [Mass ratio] 1.1 {ratio} Normal [facility] Comment on above: Performed By: #### C MP, VIJI, LIPA, CMADM ####[facility] Txi[address]nxrxj[address] [place] [address]Dr. Tadeo Smyth ALP [Catalytic activity/Vol] 145 U/L Critically high 46-116 [facility] Comment on above: Performed By: #### C MP, VIJI, LIPA, CMADM ####[facility] P[address]qbdszro54[address] [place] [address]Dr. Tadeo Smyth ALT [Catalytic activity/Vol] 30 U/L Normal 14-59 [facility] Comment on above: Performed By: #### C MP, VIJI, LIPA, CMADM ####[facility] V[address]rv[address]gu[address] [place] [address]Dr. Margotlan Smyth Anion gap [Moles/Vol] 11.5 mmol/L Normal Th e [facility] Comment on above: Performed By: #### C MP, VIJI, LIPA, CMADM ####[facility] Edrawcifjj[address] [place] [address]Dr. Tadeo Smyth AST [Catalytic activity/Vol] 17 U/L Normal 15-37 [facility] Comment on above: Performed By: #### C MP, VIJI, LIPA, CMADM ####[facility] Nfx[address]zzqadf[address] [place] [address]Dr. Margotlan Smyth Bilirubin [Mass/Vol] 0.1 mg/dL Critically low 0.2-1.0 [facility] Comment on above: Performed By: #### C MP, VIJI, LIPA, CMADM ####[facility] Yxqwxnpaur82[address] [place] [address]Dr. Margotlan Smyth Calcium [Mass/Vol] 8.9 mg/dL Normal 8.5-10.1 [facility] Comment on above: Performed By: #### C MP, VIJI, LIPA, CMADM ####[facility] Fyaduckmic[address] [place] [address]Dr. Margotlan Smyth Chloride [Moles/Vol] 104 mmol/L Normal 98-107 [facility] Comment on above: Performed By: #### C MP, VIJI, LIPA, CMADM ####[facility] Szpjipkoek[address] [place] [address]Dr. Margotlan Smyth CO2 [Moles/Vol] 27.2 mmol/L Normal 21.0-32.0 [facility] Comment on above: Performed By: #### C MP, VIJI, LIPA, CMADM ####[facility] Cjnsffdvaa6436 [place] [address]Dr. Tadeo Smyth Creatinine [Mass/Vol] 0.90 mg/dL Normal 0.55-1.02 [facility] Comment on above: Performed By: #### C MP, VIJI, LIPA, CMADM ####[facility] Ywuwwcgxkg[address] [place] [address]Dr. Tadeo Smyth EGFR-AF IRAQI >60 Normal >=60 [facility] Comment on above: Performed By: #### C MP, VIJI, LIPA, CMADM ####[facility] Fvvtjfzdtf[address] [place] [address]Dr. Tadeo Smyth EGFR-NON AF IRAQI >60 Normal >=60 [facility] Comment on above: Performed By: #### C MP, VIJI, LIPA, CMADM ####[facility] Bnsmetfvxx49[address] [place] [address]Dr. Tadeo Smyth Globulin (S) [Mass/Vol] 3.5 g/dL Normal [facility] Comment on above: Performed By: #### C MP, VIJI, LIPA, CMADM ####[facility] Ims[address]jemdd[address] [place], [place] [address]Dr. Tadeo Smyth Glucose [Mass/Vol] 98 mg/dL Normal 74-106 [facility] Comment on above: Performed By: #### C MP, VIJI, LIPA, CMADM ####[facility] C[address]ulzjcewp[address] [place] [address]Dr. Tadeo Smyth Potassium [Moles/Vol] 3.7 mmol/L Normal 3.5-5.1 [facility] Comment on above: Performed By: #### C MP, VIJI, LIPA, CMADM ####[facility] X[address]re[address] [place], [place] [address]Dr. Tadeo Smyth Protein [Mass/Vol] 7.3 g/dL Normal 6.4-8.2 [facility] Comment on above: Performed By: #### C MP, VIJI, LIPA, CMADM ####[facility] Iv[address] [place], [place] [address]Dr. Tadeo Smyth Sodium [Moles/Vol] 139 mmol/L Normal 136-145 [facility] Comment on above: Performed By: #### C VIJI GARCIA LIPA, CMAMARGARITO ####[facility] Pvbegsipyy37[address] [place] [address]Dr. Tadeo Smyth Urea nitrogen [Mass/Vol] 25.0 mg/dL Critically high 7.0-18.0 [facility] Comment on above: Performed By: #### C VIJI GARCIA LIPA, CMADM ####[facility] Neuwojgkdb74[address] [place] [address]Dr. Tadeo Smyth Urea nitrogen/Creatinine [Mass ratio] 27.8 mg/mg Normal [facility] Comment on above: Performed By: #### C VIJI GARCIA LIPA, CMAMARGARITO ####[facility] M[address]udpizak[address] [place] [address]Dr. Tadeo Smyth URINE MICROSCOPIC ONLYon BACTERIA NONE SEEN Normal NONE SEEN The [facility] Comment on above: Performed By: #### SANDRO MERCHANTRO ####[facility] Ezczypihky[address] [place] [address]Dr. Tadeo Smyth Bacteria identified Cx Nom (U) NOT INDICATED Normal [facility] Comment on above: Performed By: #### SANDRO MERCHANTRO ####[facility] Ulgrvmryli4[address] [place] [address]Dr. Tadeo Smyth CAST NONE SEEN Normal NONE SEEN The [facility] Comment on above: Performed By: #### SANDRO MERCHANTRO ####[facility] [address]cn[address]odmn[address] [place], [place] [address]Dr. Tadeo Smtyh Crystals LM Nom (Urine sed) NONE SEEN Normal NONE SEEN The [facility] Comment on above: Performed By: #### SANDRO MERCHANTRO ####[facility] Ghccajvnhg34[address] [place] [address]Dr. Tadeo Smyth Epithelial cells LM Ql (Urine sed) FEW Abnormal NONE SEEN /RARE The [facility] Comment on above: Performed By: #### SANDRO MERCHANTRO ####[facility] Hvtfiummtw5[address] [place] [address]Dr. Tadeo Smyth MUCOUS NONE SEEN Normal NONE SEEN The [facility] Comment on above: Performed By: #### KAROL MERCHANT ####[facility] Ctrwfxhein[address] [place] [address]Dr. Tadeo Smyth RBC 2-5 Abnormal 0-2 [facility] Comment on above: Performed By: #### KAROL MERCHANT ####[facility] Ikvtskkylt12[address] [place] [address]Dr. Tadeo Smyth WBC NONE SEEN Normal NONE SEEN The [facility] Comment on above: Performed By: #### KAROL MERCHANT ####[facility] [address] [place], [place] [address]Dr. Tadeo Smyth AMYLASEon 07-21-2022 Amylase [Catalytic activity/Vol] 49 U/L Normal 25-115 [facility] Comment on above: Performed By: #### L IPA VIJI, CMP ####[facility] [address]zqbmunp[address] [place], [place] [address]Dr. Tadeo Smyth CBC AUTO DIFFon 07-21-2022 BASO # 0.0 103/ul Normal 0.0-0.1 [facility] Comment on above: Performed By: #### C BC ####[facility] [address]ns[address]ugyh[address] [place], [place] [address]Dr. Tadeo Smyth Basophils/100 WBC (Bld) 0.6 % Normal 0.2-2.0 [facility] Comment on above: Performed By: #### C BC ####[facility] Xvpwqysnhq7[address] [place] [address]Dr. Tadeo Smyth EO # 0.2 103/ul Normal 0.0-0.7 [facility] Comment on above: Performed By: #### C BC ####[facility] V[address] [place], [place] [address]Dr. Tadeo Smyth Eosinophils/100 WBC (Bld) 3.1 % Normal 0.9-7.0 The [facility] Comment on above: Performed By: #### C BC ####[facility] [address]vtlruwwzd[address] [place], [place] [address]Dr. Tadeo Smyth Erythrocyte distribution width (RBC) [Ratio] 13.2 % Normal 11.0-15.0 [facility] Comment on above: Performed By: #### C BC ####[facility] Fmfdupzxod[address] [place], [place] [address]Dr. Tadeo Smyth Hematocrit (Bld) [Volume fraction] 35.7 % Critically low 36.0-48.0 The [facility] Comment on above: Performed By: #### C BC ####[facility] Txkmtisata[address] [place], [place] [address]Dr. Margotnicole Smyth Hemoglobin (Bld) [Mass/Vol] 11.6 g/dL Critically low 12.0-16.0 [facility] Comment on above: Performed By: #### C BC ####[facility] Oovemlgyny[address] [place], [place] [address]Dr. Tadeo Smyth IG # 0.01 10e3/ul Normal 0.00-0.03 [facility] Comment on above: Performed By: #### C BC ####[facility] X[address]es[address]kf[address] [place], [place] [address]Dr. Margotnicole Smyth IG % 0.2 % Normal 0.0-0.5 The [facility] Comment on above: Performed By: #### C BC ####[facility] A[address]rbnomyzq[address] [place], [place] [address]Dr. Tadeo Smyth LYMPH # 1.9 103/ul Normal 1.2-3.8 [facility] Comment on above: Performed By: #### C BC ####[facility] [address]efrxuxeku[address] [place], [place] [address]Dr. Tadeo Smyth Lymphocytes/100 WBC (Bld) 34.8 % Normal 20.5-60.0 [facility] Comment on above: Performed By: #### C BC ####[facility] [address]uaqi[address] [place], [place] [address]Dr. Tadeo Smyth MANUAL DIFF REQ NO Normal [facility] Comment on above: Performed By: #### C BC ####[facility] Vikmpgyxqn[address] [place], [place] [address]Dr. Tadeo Smyth MCH (RBC) [Entitic mass] 29.1 pg Normal 26.7-34.0 [facility] Comment on above: Performed By: #### C BC ####[facility] Trgisofxmi[address] [place] [address]Dr. Tadeo Smyth MCHC (RBC) [Mass/Vol] 32.5 g/dL Normal 29.9-35.2 [facility] Comment on above: Performed By: #### C BC ####[facility] Unlmqztesj[address] [place] [address]Dr. Tadeo Haja MCV (RBC) [Entitic vol] 89.7 fL Normal 81.0-99.0 [facility] Comment on above: Performed By: #### C BC ####[facility] Gqjunaxrav[address] [place] [address]Dr. Tadeo Haja MONO # 0.3 103/ul Normal 0.3-0.8 [facility] Comment on above: Performed By: #### C BC ####[facility] Qrygsppfqn[address] [place] [address]Dr. Margotnicole Smyth Monocytes/100 WBC (Bld) 6.1 % Normal 1.7-12.0 [facility] Comment on above: Performed By: #### C BC ####[facility] [address]xs[address] [place], [place] [address]Dr. Tadeo Smyth NEUT # 3.0 103/ul Normal 1.4-6.5 [facility] Comment on above: Performed By: #### C BC ####[facility] X[address]ukjgsf[address] [place] [address]Dr. Margotnicole Smyth Neutrophils/100 WBC (Bld) 55.2 % Normal 43.0-75.0 [facility] Comment on above: Performed By: #### C BC ####[facility] [address]uydmfwhn[address] [place] [address]Dr. Tadeo Smyth Platelet mean volume (Bld) [Entitic vol] 9.0 fL Critically low 9.5-13.5 [facility] Comment on above: Performed By: #### C BC ####[facility] [address] [place] [id number]. Tadeo Smyth PLT 358 103/ul Normal 150-450 [facility] Comment on above: Performed By: #### C BC ####[facility] [address] [place] [address]Dr. Tadeo Smyth RBC 3.98 106/ul Critically low 4.20-5.40 [facility] Comment on above: Performed By: #### C BC ####[facility] [address]utjstol[address] [place] [address]Dr. Tadeo Smyth WBC 5.4 103/ul Normal 4.0-11.0 [facility] Comment on above: Performed By: #### C BC ####[facility] Nwchzshxrj[address] [place] [address]Dr. Margotnicole Smyth LIPASEon 07-21-2022 Lipase [Catalytic activity/Vol] 54.0 U/L Critically low 73.0-393.0 [facility] Comment on above: Performed By: #### L VIJI HALL, CMP ####[facility] R[address]vtwhufay[address] [place] [address]Dr. Tadoe Smyth PROF 14(COMP METB)on 022 Albumin [Mass/Vol] 3.5 g/dL Normal 3.4-5.0 [facility] Comment on above: Performed By: #### L VIJI HALL, CMP ####[facility] Yaczezjvgb[address] [place] [address]Dr. Margotnicole Smyth Albumin/Globulin [Mass ratio] 0.9 {ratio} Normal [facility] Comment on above: Performed By: #### L ISABEL VIJI, CMP ####[facility] Zvudqabyor[address] [place] [address]Dr. Margotnicole Smyth ALP [Catalytic activity/Vol] 127 U/L Critically high 46-116 [facility] Comment on above: Performed By: #### L ISABEL VIJI, CMP ####[facility] Jfxsudyriy[address] [place] [address]Dr. Tadeo Smyth ALT [Catalytic activity/Vol] 16 U/L Normal 14-59 [facility] Comment on above: Performed By: #### L IPA VIJI, CMP ####[facility] Tdpwlowume[address] [place] [address]Dr. Tadeo Smyth Anion gap [Moles/Vol] 10.6 mmol/L Normal Th e [facility] Comment on above: Performed By: #### L IPA VIJI, CMP ####[facility] Aypurcmyqp8[address] [place] [address]Dr. Tadeo Smyth AST [Catalytic activity/Vol] 16 U/L Normal 15-37 [facility] Comment on above: Performed By: #### L IPA VIJI, CMP ####[facility] Qrsqdybw[address] [place], [place] [address]Dr. Tadeo Smyth Bilirubin [Mass/Vol] 0.3 mg/dL Normal 0.2-1.0 [facility] Comment on above: Performed By: #### L IPA VIJI, CMP ####[facility] Zojzttdc[address] [place], [place] [address]Dr. Tadeo Haja Calcium [Mass/Vol] 9.1 mg/dL Normal 8.5-10.1 [facility] Comment on above: Performed By: #### L IPA VIJI, CMP ####[facility] Yiaavqrhyo[address] [place], [place] [address]Dr. Tadeo Haja Chloride [Moles/Vol] 104 mmol/L Normal 98-107 [facility] Comment on above: Performed By: #### L IPA VIJI, CMP ####[facility] Nqxnwurdfa[address] [place], [place] [address]Dr. Tadeo Smyth CO2 [Moles/Vol] 28.0 mmol/L Normal 21.0-32.0 [facility] Comment on above: Performed By: #### L IPA VIJI, CMP ####[facility] Znxkuwlgup[address] [place], [place] [address]Dr. Tadeo Smyth Creatinine [Mass/Vol] 0.96 mg/dL Normal 0.55-1.02 [facility] Comment on above: Performed By: #### L IPA VIJI, CMP ####[facility] Osjdohincg[address] [place], [place] [address]Dr. Tadeo Smyth EGFR-AF IRAQI >60 Normal >=60 [facility] Comment on above: Performed By: #### L VIJI HALL, CMP ####[facility] Gsnabebwrv[address] [place] [address]Dr. Tadeo Smyth EGFR-NON AF IRAQI >60 Normal >=60 [facility] Comment on above: Performed By: #### L VIJI HALL, CMP ####[facility] Uowetmpocm[address] [place], [place] [address]Dr. Tadeo Smyth Globulin (S) [Mass/Vol] 3.8 g/dL Normal [facility] Comment on above: Performed By: #### L VIJI HALL, CMP ####[facility] Xftzeffrww[address] [place], [place] [address]Dr. Tadeo Smyth Glucose [Mass/Vol] 93 mg/dL Normal 74-106 [facility] Comment on above: Performed By: #### L VIJI HALL, CMP ####[facility] Udgaccwyvv[address] [place], [place] [address]Dr. Tadeo Smyth Potassium [Moles/Vol] 3.6 mmol/L Normal 3.5-5.1 [facility] Comment on above: Performed By: #### L VIJI HALL, CMP ####[facility] Puxneiyqbm[address] [place], [place] [address]Dr. Tadeo Smyth Protein [Mass/Vol] 7.3 g/dL Normal 6.4-8.2 [facility] Comment on above: Performed By: #### L VIJI HALL, CMP ####[facility] Erqrptutnl29[address] [place] [address]Dr. Tadeo Smyth Sodium [Moles/Vol] 139 mmol/L Normal 136-145 [facility] Comment on above: Performed By: #### L VIJI HALL, CMP ####[facility] Txfqiybpco[address] [place], [place] [address]Dr. Tadeo Smyth Urea nitrogen [Mass/Vol] 16.0 mg/dL Normal 7.0-18.0 [facility] Comment on above: Performed By: #### L VIJI HALL, CMP ####[facility] Ozorxwnbvx[address] [place] [address]Dr. Tadeo Smyth Urea nitrogen/Creatinine [Mass ratio] 16.7 mg/mg Normal [facility] Comment on above: Performed By: #### L VIJI HALL, CMP ####[facility] K[address]zklghsp[address] [place] [address]Dr. Tadeo Haja XR ABD FLAT UP_PA Kasey 07-21 XR ABD FLAT UP_PA CH Normal [facility] CULTURE URINEon 07-10-2022 CULTURE URINE Normal [facility] Comment on above: Performed By: #### U RCX ####[facility] Duvidwcldz[address] [place], [place] [address]Dr. Tadeo Smyth INSULINon 07-09-2022 Insulin 15.9 uIU/mL Normal 2.6-24.9 [facility] Comment on above: Performed By: #### I NSULIN ####[facility] Ykmldeanio[address] [place], [place] [address]Dr. Tadeo Smyth CBC AUTO DIFFon 07-08-2022 BASO # 0.0 103/ul Normal 0.0-0.1 [facility] Comment on above: Performed By: #### C BC ####[facility] Smnlhsefqd[address] [place], [place] [address]Dr. Tadeo Smyth Basophils/100 WBC (Bld) 0.6 % Normal 0.2-2.0 [facility] Comment on above: Performed By: #### C BC ####[facility] Izeyftoirl[address] [place], [place] [address]Dr. Tadeo Smyth EO # 0.2 103/ul Normal 0.0-0.7 [facility] Comment on above: Performed By: #### C BC ####[facility] Bfgwbjfyqd3[address] [place], [place] [address]Dr. Tadeo Smyth Eosinophils/100 WBC (Bld) 3.4 % Normal 0.9-7.0 [facility] Comment on above: Performed By: #### C BC ####[facility] Baxnqrhdto[address] [place], [place] [address]Dr. Tadeo Smyth Erythrocyte distribution width (RBC) [Ratio] 13.1 % Normal 11.0-15.0 [facility] Comment on above: Performed By: #### C BC ####[facility] Mwvjpbwzvm[address] [place] [address]DrNeo Smyth Hematocrit (Bld) [Volume fraction] 42.4 % Normal 36.0-48.0 [facility] Comment on above: Performed By: #### C BC ####[facility] Kvxf[address]pff[address] [place], [place] [address]DrNeo Smyth Hemoglobin (Bld) [Mass/Vol] 13.7 g/dL Normal 12.0-16.0 [facility] Comment on above: Performed By: #### C BC ####[facility] Bstushbjpl[address] [place], [place] [address]DrNeo Smyth IG # 0.01 10e3/ul Normal 0.00-0.03 [facility] Comment on above: Performed By: #### C BC ####[facility] Pntsywsrhv[address] [place], [place] [address]DrNeo Smyth IG % 0.2 % Normal 0.0-0.5 [facility] Comment on above: Performed By: #### C BC ####[facility] Drbtlzkfvl[address] [place], [place] [address]DrNeo Smyth LYMPH # 2.1 103/ul Normal 1.2-3.8 [facility] Comment on above: Performed By: #### C BC ####[facility] Hultdsvcxm[address] [place], [place] [address]DrNeo Smyth Lymphocytes/100 WBC (Bld) 41.2 % Normal 20.5-60.0 [facility] Comment on above: Performed By: #### C BC ####[facility] Uvyfrmfccg[address] [place], [place] [address]DrNeo Smyth MANUAL DIFF REQ NO Normal [facility] Comment on above: Performed By: #### C BC ####[facility] Jeovaecamn[address] [place], [place] [address]DrNeo Smyth MCH (RBC) [Entitic mass] 28.8 pg Normal 26.7-34.0 [facility] Comment on above: Performed By: #### C BC ####[facility] Zelzasymat4[address] [place] [address]Dr. Tadeo Smyth MCHC (RBC) [Mass/Vol] 32.3 g/dL Normal 29.9-35.2 [facility] Comment on above: Performed By: #### C BC ####[facility] Jnnqsaifsf6804 [place] [address]DrNeo Smyth MCV (RBC) [Entitic vol] 89.3 fL Normal 81.0-99.0 [facility] Comment on above: Performed By: #### C BC ####[facility] Aryasgxgbt[address] [place], [place] [address]DrNeo Smyth MONO # 0.4 103/ul Normal 0.3-0.8 [facility] Comment on above: Performed By: #### C BC ####[facility] Qmltqcqbuy[address] [place], [place] [address]DrNeo Smyth Monocytes/100 WBC (Bld) 8.1 % Normal 1.7-12.0 [facility] Comment on above: Performed By: #### C BC ####[facility] Ynmyvceehz[address] [place], [place] [address]DrNeo Smyth NEUT # 2.4 103/ul Normal 1.4-6.5 [facility] Comment on above: Performed By: #### C BC ####[facility] Esrhtxskte[address] [place], [place] [address]Dr. Tadeo Smyth Neutrophils/100 WBC (Bld) 46.5 % Normal 43.0-75.0 [facility] Comment on above: Performed By: #### C BC ####[facility] Ljnfou[address] [place], [place] [address]DrNeo Smyth Platelet mean volume (Bld) [Entitic vol] 9.3 fL Critically low 9.5-13.5 [facility] Comment on above: Performed By: #### C BC ####[facility] Dtzphcjcot[address] [place], [place] [address]Dr. Tadeo Smyth PLT 443 103/ul Normal 150-450 [facility] Comment on above: Performed By: #### C BC ####[facility] F[address]ym[address]zlx[address] [place] [id number]. Tadeo Smyth RBC 4.75 106/ul Normal 4.20-5.40 [facility] Comment on above: Performed By: #### C BC ####[facility] Tj[address]fffzh6751 [place] [id number]. Tadeo Smyth WBC 5.1 103/ul Normal 4.0-11.0 [facility] Comment on above: Performed By: #### C BC ####[facility] Rpjuotggsv2199 [place] [id number]. Tadeo Smyth FREE THYROXINE INDEX T7on FTI 2.91 Normal 1.30-4.50 [facility] Comment on above: Performed By: #### T 7, LIPID, TSH, CMP ####[facility] Rthlwtyq[address] [place], [place] [address]Dr. Tadeo Smyth T3U 31.0 % Normal 30.0-39.0 [facility] Comment on above: Performed By: #### T 7, LIPID, TSH, CMP ####[facility] Vuudgfdocb[address]906 [place] [id number]. Tadeo Smyth T4 [Mass/Vol] 9.40 ug/dL Normal 4.80-13.90 [facility] Comment on above: Performed By: #### T 7, LIPID, TSH, CMP ####[facility] [address]lfzf[address] [place] [address]Dr. Tadeo Smyth GLYCOHEMOGLOBIN A1Con 2021 ADA RECOMMENDATION SEE BELOW Normal [facility] Comment on above: Result Comment: ADA RECOMMENDED LIMIT 4.0 - 6.0 ADA THERAPEUTIC TARGET < 7.0 ACTION SUGGESTED > 7.0 Performed By: #### A 1C ####[facility] Qzrhnzdjnr[address] [place] [address]Dr. Tadeo Smyth Glucose [Mass/Vol] 120 mg/dL Normal [facility] Comment on above: Performed By: #### A 1C ####[facility] Dwjdcthtac3917 [place] [phone]. Tadeo Smyth HbA1c (Bld) [Mass fraction] 5.8 % Normal 4.5-6.2 [facility] Comment on above: Performed By: #### A 1C ####[facility] [address]zpquzqwb59[address] [place] [id number]. Tadeo Smyth IRONon 07-08-2022 Iron [Mass/Vol] 59.0 ug/dL Normal 50.0-170.0 [facility] Comment on above: Performed By: #### I KEEGAN ####[facility] Axtgkezcyz3496 [place] [phone]. Tadeo Smyth LIPID PROFILEon 07-08-2022 CHOL-HDL RATIO NORM SEE BELOW Normal [facility] Comment on above: Result Comment: 3.3 - 4.4 LOW RISK 4.4 - 7.1 AVERAGE RISK 7.1 - 11.0 MODERATE RISK >11.0 HIGH RISK Performed By: #### T 7, LIPID, TSH, CMP ####[facility] T[address]gsdyo8[address] [place] [phone]. Tadeo Smyth Cholesterol [Mass/Vol] 227 mg/dL Critically high <=200 [facility] Comment on above: Performed By: #### T 7, LIPID, TSH, CMP ####[facility] Qrvjjtswhf0521 [place] [phone]. Tadeo Smyth Cholesterol in HDL [Mass/Vol] 67 mg/dL Critically high 40-60 [facility] Comment on above: Performed By: #### T 7, LIPID, TSH, CMP ####[facility] V[address]rmuhj10[address] [place] [phone]. Tadeo Smyth Cholesterol in LDL [Mass/Vol] 139.0 mg/dL Normal [facility] Comment on above: Performed By: #### T 7, LIPID, TSH, CMP ####[facility] Itlhvzxgfh5991 [place] [phone]. Tadeo Smyth Cholesterol.total/Cho lesterol in HDL [Mass ratio] 3.4 {ratio} Normal [facility] Comment on above: Performed By: #### T 7, LIPID, TSH, CMP ####[facility] Ycjibjjzkr[address] [place] [address]Dr. Tadeo Smyth HDL NORMAL > or = 60 mg/dl - LO W CARDIOVASCULAR RISK <40 mg/dl - HIGH CARDIOVASCULAR RISK Normal [facility] Comment on above: Performed By: #### T 7, LIPID, TSH, CMP ####[facility] Sqqyegrghk68[address] [place] [address]Dr. Tadeo Smyth LDL CALC NORMAL SEE BELOW Normal [facility] Comment on above: Result Comment: <100 mg/dl OPTIMAL 100 - 129 mg/dl NEAR OR ABOVE OPTIMAL 130 - 159 mg/dl BORDERLINE HIGH 160 - 189 mg/dl HIGH >190 mg/dl VERY HIGH Performed By: #### T 7, LIPID, TSH, CMP ####[facility] Hupypvvrxg5774 [place] [address]Dr. Tadeo Smyth Triglyceride [Mass/Vol] 105 mg/dL Normal <=150 [facility] Comment on above: Performed By: #### T 7, LIPID, TSH, CMP ####[facility] Gu[address]cocqg[address] [place], [place] [address]Dr. Tadeo Smyth VLDL CALC 21.0 mg/dL Normal [facility] Comment on above: Performed By: #### T 7, LIPID, TSH, CMP ####[facility] T[address]ubjixl[address] [place] [address]Dr. Tadeo Smyth OCC BLD IMMUNO SCREENon OCCULT BLOOD Negative Normal NEGATIVE [facility] Comment on above: Performed By: #### O BSCRN ####[facility] Pfpbmrzmyx32[address] [place] [address]Dr. Tadeo Smyth PROF 14(COMP METB)on 022 Albumin [Mass/Vol] 3.7 g/dL Normal 3.4-5.0 [facility] Comment on above: Performed By: #### T 7, LIPID, TSH, CMP ####[facility] Olcojsolpc[address] [place] [address]Dr. Tadeo Smyth Albumin/Globulin [Mass ratio] 0.8 {ratio} Normal [facility] Comment on above: Performed By: #### T 7, LIPID, TSH, CMP ####[facility] Xmeznjpewj7254 [place] [address]Dr. Tadeo Smyth ALP [Catalytic activity/Vol] 141 U/L Critically high 46-116 [facility] Comment on above: Performed By: #### T 7, LIPID, TSH, CMP ####[facility] Pwoewyuyxs[address] [place] [address]Dr. Tadeo Smyth ALT [Catalytic activity/Vol] 23 U/L Normal 14-59 [facility] Comment on above: Performed By: #### T 7, LIPID, TSH, CMP ####[facility] Iqsormnxbb5587 [place] [address]Dr. Tadeo Smyth Anion gap [Moles/Vol] 9.8 mmol/L Normal [facility] Comment on above: Performed By: #### T 7, LIPID, TSH, CMP ####[facility] J[address]qhn[address] [place], [place] [address]Dr. Tadeo Smyth AST [Catalytic activity/Vol] 13 U/L Critically low 15-37 [facility] Comment on above: Performed By: #### T 7, LIPID, TSH, CMP ####[facility] Yws[address]nnyspa[address] [place], [place] [address]Dr. Tadeo Smyth Bilirubin [Mass/Vol] 0.4 mg/dL Normal 0.2-1.0 [facility] Comment on above: Performed By: #### T 7, LIPID, TSH, CMP ####[facility] Xtuegcwzsm[address] [place], [place] [address]Dr. Tadeo Smyth Calcium [Mass/Vol] 10.2 mg/dL Critically high 8.5-10.1 [facility] Comment on above: Performed By: #### T 7, LIPID, TSH, CMP ####[facility] Opmspqpoqs[address] [place], [place] [address]Dr. Tadeo Smyth Chloride [Moles/Vol] 101 mmol/L Normal 98-107 [facility] Comment on above: Performed By: #### T 7, LIPID, TSH, CMP ####[facility] [address]vjcevzyyl[address] [place], [place] [address]Dr. Tadeo Smyth CO2 [Moles/Vol] 32.8 mmol/L Critically high 21.0-32.0 [facility] Comment on above: Performed By: #### T 7, LIPID, TSH, CMP ####[facility] Abtekuztfj[address] [place] [address]Dr. Tadeo Smyth Creatinine [Mass/Vol] 0.92 mg/dL Normal 0.55-1.02 [facility] Comment on above: Performed By: #### T 7, LIPID, TSH, CMP ####[facility] Paicjbaknp[address] [place] [address]Dr. Tadeo Smyth EGFR-AF IRAQI >60 Normal >=60 [facility] Comment on above: Performed By: #### T 7, LIPID, TSH, CMP ####[facility] Djxoztuifh[address] [place] [address]Dr. Tadeo Smyth EGFR-NON AF IRAQI >60 Normal >=60 [facility] Comment on above: Performed By: #### T 7, LIPID, TSH, CMP ####[facility] Mphzbzxedr6136 [place] [address]Dr. Tadeo Smyth Globulin (S) [Mass/Vol] 4.8 g/dL Normal [facility] Comment on above: Performed By: #### T 7, LIPID, TSH, CMP ####[facility] Ltmzprdvlv[address] [place] [address]Dr. Margotnicole Symth Glucose [Mass/Vol] 114 mg/dL Critically high 74-106 [facility] Comment on above: Performed By: #### T 7, LIPID, TSH, CMP ####[facility] S[address]rqzlid[address] [place] [address]Dr. Tadeo Smyth Potassium [Moles/Vol] 3.6 mmol/L Normal 3.5-5.1 [facility] Comment on above: Performed By: #### T 7, LIPID, TSH, CMP ####[facility] Ruunytqwmh[address] [place] [address]Dr. Margotnicole Smyth Protein [Mass/Vol] 8.5 g/dL Critically high 6.4-8.2 [facility] Comment on above: Performed By: #### T 7, LIPID, TSH, CMP ####[facility] Aoxm[address]wcoa[address] [place] [address]Dr. Tadeo Smyth Sodium [Moles/Vol] 140 mmol/L Normal 136-145 [facility] Comment on above: Performed By: #### T 7, LIPID, TSH, CMP ####[facility] Irdetylgud[address] [place] [address]Dr. Tadeo Smyth Urea nitrogen [Mass/Vol] 23.0 mg/dL Critically high 7.0-18.0 [facility] Comment on above: Performed By: #### T 7, LIPID, TSH, CMP ####[facility] K[address]yy[address]hz[address] [place] [address]Dr. Tadeo Smyth Urea nitrogen/Creatinine [Mass ratio] 25.0 mg/mg Normal [facility] Comment on above: Performed By: #### T 7, LIPID, TSH, CMP ####[facility] [address]pxl[address] [place], [place] [address]Dr. Tadeo Smyth TSHon 07-08-2022 TSH 3.748 uIU/mL Critically high 0.358-3.740 [facility] Comment on above: Performed By: #### T 7, LIPID, TSH, CMP ####[facility] [address]feqezlbne[address] [place] [address]Dr. Tadeo Smyth UA RANDOM W/MICROSCOPICon BACTERIA TRACE Abnormal NONE SEEN [facility] Comment on above: Performed By: #### U AMIC ####[facility] Ymvnymlnlc[address] [place] [address]Dr. Tadeo Smyth Bilirubin Ql (U) Negative Normal NEGATIVE [facility] Comment on above: Performed By: #### U AMIC ####[facility] Yjhxhrqmyt38[address] [place] [address]Dr. Tadeo Smyth CAST NONE SEEN Normal NONE SEEN [facility] Comment on above: Performed By: #### U AMIC ####[facility] Bdrrlyqlml28[address] [place] [address]Dr. Tadeo Smyth Clarity (U) CLEAR Normal CLEAR [facility] Comment on above: Performed By: #### U AMIC ####[facility] Tadeynbkna[address] [place] [address]Dr. Tadeo Smyth Color (U) YELLOW Normal YELLOW [facility] Comment on above: Performed By: #### U AMIC ####[facility] Luyqcbzzzf34[address] [place] [phone]. Tadeo Smyth Crystals LM Nom (Urine sed) NONE SEEN Normal NONE SEEN [facility] Comment on above: Performed By: #### U AMIC ####[facility] Luvozoafwp54[address] [place] [address]Dr. Tadeo Smyth Epithelial cells LM Ql (Urine sed) FEW Abnormal NONE SEEN /RARE [facility] Comment on above: Performed By: #### U AMIC ####[facility] Byggsliqbo[address] [place] [address]Dr. Tadeo Smyth Glucose Ql (U) Negative Normal NEGATIVE [facility] Comment on above: Performed By: #### U AMIC ####[facility] Jemrwoplim[address] [place] [address]Dr. Tadeo Smyth Hemoglobin Ql (U) SMALL Abnormal NEGATIVE [facility] Comment on above: Performed By: #### U AMIC ####[facility] Xuqsxkpdhe[address] [place] [address]Dr. Tadeo Smyth Ketones Ql (U) TRACE Abnormal NEGATIVE [facility] Comment on above: Performed By: #### U AMIC ####[facility] Nggtyrcjaz37[address] [place] [address]Dr. Tadeo Smyth LEUKOCYTES TRACE Abnormal NEGATIVE [facility] Comment on above: Performed By: #### U AMIC ####[facility] Oooqiahyso[address] [place] [address]Dr. Tadeo Smyth MUCOUS NONE SEEN Normal NONE SEEN [facility] Comment on above: Performed By: #### U AMIC ####[facility] Izdxflpxgp3[address] [place] [address]Dr. Tadeo Smyth Nitrite Ql (U) Negative Normal NEGATIVE [facility] [facility] Comment on above: Performed By: #### U AMIC ####[facility] [address]xlrstrm[address] [place] [id number]. Tadeo Smyth pH (U) 6.5 [pH] Normal 5-9 The [facility] Comment on above: Performed By: #### U AMIC ####[facility] J[address]ldgrvlv[address] [place] [address]Dr. Tadeo Smyth RBC 5-10 Abnormal 0-2 The [facility] Comment on above: Performed By: #### U AMIC ####[facility] Kpcickivqn[address] [place] [id number]. Tadeo Smyth SPEC GRAVITY 1.020 Normal 1.005-<=1.0 25 [facility] Comment on above: Performed By: #### U AMIC ####[facility] [address]umeakmbaw[address] [place] [address]Dr. Tadeo Smyth UA PROTEIN 30 mg/dl Abnormal NEGATIVE/ TRACE The [facility] Comment on above: Performed By: #### U AMIC ####[facility] Eptuayhgev[address] [place] [address]Dr. Tadeo Smyth Urobilinogen Qn (U) 0.2 {Benito'U}/dL Normal 0.2 - 1. 0 The [facility] Comment on above: Performed By: #### U AMIC ####[facility] Usikvdehcd[address] [place] [address]Dr. Tadeo Smyth WBC 2-5 Abnormal NONE SEEN The [facility] Comment on above: Performed By: #### U AMIC ####[facility] Kzhoaprxzx[address] [place] [address]Dr. Tadeo Smyth [facility]07 SARS-CoV-2 (COVID-19) RNA CHEN+probe Ql (Unsp spec) Not detected Normal NOT DETECTED The [facility] Comment on above: Result Comment: When [...] for this test is supported by the Paleology Professor of Health and Human Service's declaration that [...] be used). Performed By: #### C VDTBH ####[facility] Cssjdmhkhw[address] [place], [place] [address]Dr. Tadeo Smyth CULTURE URINEon 06-09-2022 CULTURE URINE Normal The [facility] Comment on above: Performed By: #### U RCX ####[facility] Wooibtapdo[address] [place], [place] [address]Dr. Tadeo Smyth GI PANEL (PCR)on 06-07-2022 Adenovirus F 40/41 Not detected Normal NOT DETECTED The [facility] Comment on above: Performed By: #### G IPANEL ####[facility] Tycakontij[address] [place], [place] [address]Dr. Tadeo Smyth Astrovirus Not detected Normal NOT DETECTED The [facility] Comment on above: Performed By: #### G IPANEL ####[facility] Jwwqqngpra[address] [place], [place] [address]Dr. Tadeo Smyth C. Diff toxin A/B Not detected Normal NOT DETECTED The [facility] Comment on above: Performed By: #### G IPANEL ####[facility] Xqghmmvpoh[address] [place], [place] [address]Dr. Tadeo Smyth Campylobacter Not detected Normal NOT DETECTED The [facility] Comment on above: Performed By: #### G IPANEL ####[facility] Shlkwnpwrp[address] [place], [place] [address]Dr. Tadeo Smyth Cryptosporidium Not detected Normal NOT DETECTED The [facility] Comment on above: Performed By: #### G IPANEL ####[facility] Ioaqlmmjxt0[address] [place], [place] [address]Dr. Tadeo Smyth Cyclos. Cayetanensis Not detected Normal NOT DETECTED The [facility] Comment on above: Performed By: #### G IPANEL ####[facility] Fclxukqcnb29[address] [place], [place] [address]Dr. nicole [facility] E. Coli O157 Not Applicable Normal Not Applicable The [facility] Comment on above: Performed By: #### G IPANEL ####[facility] Uneiihtccc4[address] [place], [place] [address]Dr. Tadeo Smyth E. histolytica Not detected Normal NOT DETECTED The [facility] Comment on above: Performed By: #### G IPANEL ####[facility] Lqhsugadic66[address] [place], [place] [address]Dr. [facility] EAEC Not detected Normal NOT DETECTED The [facility] Comment on above: Performed By: #### G IPANEL ####[facility] Xizdjnfgnk[address] [place], [place] [address]Dr. [facility] EIEC Not detected Normal NOT DETECTED The [facility] Comment on above: Performed By: #### G IPANEL ####[facility] Bmkoznaptc4[address] [place], [place] [address]Dr. [facility] EPEC Not detected Normal NOT DETECTED The [facility] Comment on above: Performed By: #### G IPANEL ####[facility] Lwpnvmbiix[address] [place], [place] [address]Dr. nicole Smyth ETEC Not detected Normal NOT DETECTED The [facility] Comment on above: Performed By: #### G IPANEL ####[facility] Vkhnjsnzar[address] [place], [place] [address]Dr. Margotnicole Smyth G. Lamblia Not detected Normal NOT DETECTED The [facility] Comment on above: Performed By: #### G IPANEL ####[facility] Ogbtwdbnio99[address] [place], [place] [address]Dr. Tadeo Smyth GIPANEL CONTROLS PASSED Normal The [facility] Comment on above: Performed By: #### G IPANEL ####[facility] Vpgejgnwpa[address] [place], [place] [address]Dr. Tadeo Smyth GIPNL ARRON HEADER GI PANEL BACTERIA Normal T [facility] Comment on above: Performed By: #### G IPANEL ####[facility] Wnseddthpm364[address] [place] [address]Dr. Tadeo Smyth [facility] DIARRHEAGEN IC E.COLI / SHIGELLA Normal The [facility] Comment on above: Performed By: #### G IPANEL ####[facility] Czjnvmtovq7[address] [place] [address]Dr. Yinicole Smyth GIPNLHD INFO SEE BELOW Normal The [facility] Comment on above: Result Comment: EAEC - Enteroaggregative E. Coli EPEC- Enteropathogenic E. Coli ETEC- Enterotoxigenic E. Coli lt/st STEC- Shigella-like toxin-producing E. Coli stx1/stx2 EIEC- Shigella/Enteroinvasive E. Coli Performed By: #### G IPANEL ####[facility] Xrbxsqkyuh[address] [place], [place] [address]Dr. Tadeo Smyth GIPNLHD PARASITES GI PANEL PARASITES Normal The [facility] Comment on above: Performed By: #### G IPANEL ####[facility] Ywrjxitugv39[address] [place], [place] [address]Dr. Tadeo Smyth GIPNLHD VIRUS GI PANEL VIRUSES Normal The [facility] Comment on above: Performed By: #### G IPANEL ####[facility] Rpghzaenqh[address] [place], [place] [address]Dr. Tadeo Smyth Norovirus GI/GII Not detected Normal NOT DETECTED The [facility] Comment on above: Performed By: #### G IPANEL ####[facility] Xfawkjdznw[address] [place], [place] [address]Dr. Tadeo Smyth P. Shigelloides Not detected Normal NOT DETECTED The [facility] Comment on above: Performed By: #### G IPANEL ####[facility] Ymvdnrfbhr[address] [place], [place] [address]Dr. Tadeo Smyth Rotavirus A Not detected Normal NOT DETECTED The [facility] Comment on above: Performed By: #### G IPANEL ####[facility] Pluzuykloa[address] [place], [place] [address]Dr. Tadeo Smyth Salmonella Not detected Normal NOT DETECTED The [facility] Comment on above: Performed By: #### G IPANEL ####[facility] Polckkrkgc[address] [place], [place] [address]Dr. Tadeo Smyth Sapovirus Not detected Normal NOT DETECTED The [facility] Comment on above: Performed By: #### G IPANEL ####[facility] Ombsmvwyuf48[address] [place], [place] [address]Dr. Tadeo Smyth STEC Not detected Normal NOT DETECTED The [facility] Comment on above: Performed By: #### G IPANEL ####[facility] Dewqurrrjq3726[address] [place], [place] [address]Dr. Tadeo Smyth Vibrio Not detected Normal NOT DETECTED The [facility] Comment on above: Performed By: #### G IPANEL ####[facility] Qcaihpceop7[address] [place], [place] [address]Dr. Tadeo Smyth Vibrio Cholera Not detected Normal NOT DETECTED The [facility] Comment on above: Performed By: #### G IPANEL ####[facility] Nuccspajef[address] [place], [place] [address]Dr. Tadeo Smyth Y. Enterocolitica Not detected Normal NOT DETECTED The [facility] Comment on above: Performed By: #### G IPANEL ####[facility] Ztywvxlnif60[address] [place], [place] [address]Dr. Tadeo Smyth AMYLASEon 06-06-2022 Amylase [Catalytic activity/Vol] 61 U/L Normal 25-115 [facility] Comment on above: Performed By: #### A MY, LIPA ####[facility] Grfupgwjqf[address] [place], [place] [address]Dr. Tadeo Smyth CBC AUTO DIFFon 06-06-2022 BASO # 0.0 103/ul Normal 0.0-0.1 [facility] Comment on above: Performed By: #### C BC ####[facility] Dfwwqxovmw[address] [place], [place] [address]Dr. Tadeo Smyth Basophils/100 WBC (Bld) 0.5 % Normal 0.2-2.0 [facility] Comment on above: Performed By: #### C BC ####[facility] Hmbylsrngz[address] [place], [place] [address]Dr. Margotnicole Smyth EO # 0.2 103/ul Normal 0.0-0.7 [facility] Comment on above: Performed By: #### C BC ####[facility] Tfb[address]iblkj[address] [place] [address]Dr. Tadeo Smyth Eosinophils/100 WBC (Bld) 3.4 % Normal 0.9-7.0 [facility] Comment on above: Performed By: #### C BC ####[facility] Uslujuhemk[address] [place], [place] [address]Dr. Tadeo Smyth Erythrocyte distribution width (RBC) [Ratio] 13.2 % Normal 11.0-15.0 The [facility] Comment on above: Performed By: #### C BC ####[facility] Psjrgxllfh[address] [place], [place] [address]Dr. Tadeo Smyth Hematocrit (Bld) [Volume fraction] 38.3 % Normal 36.0-48.0 The [facility] Comment on above: Performed By: #### C BC ####[facility] Hkbtuaxkvq[address] [place], [place] [address]Dr. Tadeo Smyth Hemoglobin (Bld) [Mass/Vol] 12.0 g/dL Normal 12.0-16.0 The [facility] Comment on above: Performed By: #### C BC ####[facility] Cxxplooeqh[address] [place], [place] [address]Dr. Tadeo Smyth IG # 0.01 10e3/ul Normal 0.00-0.03 The [facility] Comment on above: Performed By: #### C BC ####[facility] Gdgfwuyqgp4318[address] [place], [place] [address]Dr. Tadeo Smyth IG % 0.2 % Normal 0.0-0.5 The [facility] Comment on above: Performed By: #### C BC ####[facility] Mljctlncds[address] [place], [place] [address]Dr. Tadeo Haja LYMPH # 1.7 103/ul Normal 1.2-3.8 The [facility] Comment on above: Performed By: #### C BC ####[facility] Tzcqktudwu[address] [place], [place] [address]Dr. Margotnicole Smyth Lymphocytes/100 WBC (Bld) 28.1 % Normal 20.5-60.0 [facility] Comment on above: Performed By: #### C BC ####[facility] Yf[address]rwdgrq[address] [place] [address]Dr. Tadeo Smyth MANUAL DIFF REQ NO Normal [facility] Comment on above: Performed By: #### C BC ####[facility] Iclqasngxw19[address] [place] [address]Dr. Tadeo Smyth MCH (RBC) [Entitic mass] 28.5 pg Normal 26.7-34.0 [facility] Comment on above: Performed By: #### C BC ####[facility] Bxmzgfxutd05[address] [place] [address]Dr. Tadeo Smyth MCHC (RBC) [Mass/Vol] 31.3 g/dL Normal 29.9-35.2 The [facility] Comment on above: Performed By: #### C BC ####[facility] Geoxvhqhld[address] [place], [place] [address]Dr. Tadeo Smyth MCV (RBC) [Entitic vol] 91.0 fL Normal 81.0-99.0 [facility] Comment on above: Performed By: #### C BC ####[facility] Dgfxjoqehb[address] [place], [place] [address]Dr. Tadeo Smyth MONO # 0.4 103/ul Normal 0.3-0.8 [facility] Comment on above: Performed By: #### C BC ####[facility] Keqfnvgbgm[address] [place], [place] [address]Dr. Tadeo Smyth Monocytes/100 WBC (Bld) 7.1 % Normal 1.7-12.0 The [facility] Comment on above: Performed By: #### C BC ####[facility] Tlzcqipuvv[address] [place], [place] [address]DrNeo Smyth NEUT # 3.6 103/ul Normal 1.4-6.5 The [facility] Comment on above: Performed By: #### C BC ####[facility] V[address]wknhurqk[address] [place], [place] [address]DrNeo Smyth Neutrophils/100 WBC (Bld) 60.7 % Normal 43.0-75.0 [facility] Comment on above: Performed By: #### C BC ####[facility] Rgtzhpvizk6104 [place] [address]Dr. Tadeo Smyth Platelet mean volume (Bld) [Entitic vol] 8.9 fL Critically low 9.5-13.5 [facility] Comment on above: Performed By: #### C BC ####[facility] Zwqikzwpvj97[address] [place] [address]Dr. Tadeo Smyth PLT 374 103/ul Normal 150-450 The [facility] Comment on above: Performed By: #### C BC ####[facility] Qaxtuqhkss[address] [place], [place] [address]Dr. Tadeo Smyth RBC 4.21 106/ul Normal 4.20-5.40 The [facility] Comment on above: Performed By: #### C BC ####[facility] Xmywjfamya4[address] [place], [place] [address]Dr. Tadeo Smyth WBC 5.9 103/ul Normal 4.0-11.0 The [facility] Comment on above: Performed By: #### C BC ####[facility] Atsoaioxsf[address]42[address] [place], [place] [address]Dr. Tadeo Smyth CT ABD/PELV W CONon 06-06-[address] ABD/PELV W CON Normal The [facility] ER URINE PROFILEon 2 Bilirubin Ql (U) Negative Normal NEGATIVE The [facility] Comment on above: Performed By: #### KAROL MERCHANT ####[facility] Oejcmcuuat[address] [place] [address]Dr. Tadeo Smyth Clarity (U) CLOUDY Abnormal CLEAR The [facility] Comment on above: Performed By: #### KAROL MERCHANT ####[facility] Smouqllojf[address] [place], [place] [address]Dr. Tadeo Smyth Color (U) LT. YELLOW Normal YELLOW The [facility] Comment on above: Performed By: #### KAROL MERCHANT ####[facility] Hizywlxyoc4[address] [place] [address]DrNeo ENG A micrscopic examina tion will be performed if indicated. Normal The [facility] Comment on above: Performed By: #### KAROL MERCHANT ####[facility] Kgzhyyfgts87[address] [place] [address]Dr. Tadeo Smyth Glucose Ql (U) Negative Normal NEGATIVE The [facility] Comment on above: Performed By: #### SANDRO MERCHANTRO ####[facility] Kphqidlrhy06[address] [place], [place] [address]Dr. Tadeo Smyth Hemoglobin Ql (U) TRACE-INTACT Abnormal NEGATIVE The [facility] Comment on above: Performed By: #### SANDRO MERCHANTRO ####[facility] Jmewimthog[address] [place], [place] [address]Dr. Tadeo Smyth Ketones Ql (U) Negative Normal NEGATIVE The [facility] Comment on above: Performed By: #### SANDRO MERCHANTRO ####[facility] Lsxbzfeluq[address] [place], [place] [address]Dr. Tadeo Smyth LEUKOCYTES SMALL Abnormal NEGATIVE The [facility] Comment on above: Performed By: #### SANDRO MERCHANTRO ####[facility] Noyrgjijly[address] [place], [place] [address]Dr. Tadeo Smyth Nitrite Ql (U) Negative Normal NEGATIVE The [facility] Comment on above: Performed By: #### SANDRO MERCHANTRO ####[facility] Xmixxwnozp[address] [place], [place] [address]Dr. Tadeo Smyth pH (U) 6.0 [pH] Normal 5-9 The [facility] Comment on above: Performed By: #### SANDRO MERCHANTRO ####[facility] Oudpbdtuae67[address] [place], [place] [address]Dr. Tadeo Smyth SPEC GRAVITY 1.020 Normal 1.005-<=1.0 25 The [facility] Comment on above: Performed By: #### SANDRO MERCHANTRO ####[facility] Urivuahhpv[address] [place] [address]Dr. Tadeo Smyth UA PROTEIN Negative Normal NEGATIVE/ TRACE The [facility] Comment on above: Performed By: #### KAROL MERCHANT ####[facility] Gxpnpghdjc37[address] [place] [address]Dr. Tadeo Smyth UR MICRO IND INDICATED Normal [facility] Comment on above: Performed By: #### KAROL MERCHANT ####[facility] Htetnshxqw16[address] [place] [address]Dr. Tadeo Smyth Urobilinogen Qn (U) 0.2 {Benito'U}/dL Normal 0.2 - 1. 0 [facility] Comment on above: Performed By: #### KAROL MERCHANT ####[facility] Drnobgmnzz[address] [place], [place] [address]Dr. Tadeo Smyth LIPASEon 06-06-2022 Lipase [Catalytic activity/Vol] 100.0 U/L Normal 73.0-393.0 [facility] Comment on above: Performed By: #### A MY, LIPA ####[facility] Hyavuudfit[address] [place], [place] [address]Dr. Tadeo Smyth PROF 14(COMP METB)on 022 Albumin [Mass/Vol] 3.3 g/dL Critically low 3.4-5.0 Th [facility] Comment on above: Performed By: #### C MP ####[facility] Zttqlddtod4[address] [place], [place] [address]Dr. Tadeo Smyth Albumin/Globulin [Mass ratio] 0.9 {ratio} Normal [facility] Comment on above: Performed By: #### C MP ####[facility] Cxhnkgnvkj0214[address] [place], [place] [address]Dr. Tadeo Smyht ALP [Catalytic activity/Vol] 140 U/L Critically high 46-116 The [facility] Comment on above: Performed By: #### C MP ####[facility] Mrkfxfzhsp[address] [place], [place] [address]Dr. Tadeo Smyth ALT [Catalytic activity/Vol] 23 U/L Normal 14-59 [facility] Comment on above: Performed By: #### C MP ####[facility] Qvrxxntgzh[address] [place], [place] [address]Dr. Tadeo Smyth Anion gap [Moles/Vol] 11.6 mmol/L Normal Th [facility] Comment on above: Performed By: #### C MP ####[facility] Etfyhlkgjo44[address] [place] [address]Dr. Tadeo Smyth AST [Catalytic activity/Vol] 18 U/L Normal 15-37 The [facility] Comment on above: Performed By: #### C MP ####[facility] Tjmoytwkvl[address] [place], [place] [address]Dr. Tadeo Smyth Bilirubin [Mass/Vol] 0.2 mg/dL Normal 0.2-1.0 [facility] Comment on above: Performed By: #### C MP ####[facility] Nqyzfxxvdr67[address] [place], [place] [address]Dr. Tadeo Haja Calcium [Mass/Vol] 8.8 mg/dL Normal 8.5-10.1 [facility] Comment on above: Performed By: #### C MP ####[facility] Xzwdezjfby[address] [place], [place] [address]Dr. Tadeo Haja Chloride [Moles/Vol] 109 mmol/L Critically high 98-107 The [facility] Comment on above: Performed By: #### C MP ####[facility] Iukjyclsax[address] [place], [place] [address]Dr. Tadeo Haja CO2 [Moles/Vol] 26.3 mmol/L Normal 21.0-32.0 [facility] Comment on above: Performed By: #### C MP ####[facility] Eqpfhnvruq[address] [place], [place] [address]Dr. Tadeo Haja Creatinine [Mass/Vol] 0.81 mg/dL Normal 0.55-1.02 The [facility] Comment on above: Performed By: #### C MP ####[facility] Aiptlfmtzv[address] [place], [place] [address]Dr. Margotnicole Haja EGFR-AF IRAQI >60 Normal >=60 The [facility] Comment on above: Performed By: #### C MP ####[facility] Vkqvrlghvj[address] [place], [place] [address]Dr. Tadeo Smyth EGFR-NON AF IRAQI >60 Normal >=60 The [facility] Comment on above: Performed By: #### C MP ####[facility] Ltwdkghlbb[address] [place] [address]Dr. Tadeo Smyth Globulin (S) [Mass/Vol] 3.7 g/dL Normal The [facility] Comment on above: Performed By: #### C MP ####[facility] Ehngmfsfpk[address] [place] [id number]. Tadeo Smyth Glucose [Mass/Vol] 90 mg/dL Normal 74-106 The [facility] Comment on above: Performed By: #### C MP ####[facility] Ptvejzpfez4[address] [place] [address]Dr. Tadeo Smyth Potassium [Moles/Vol] 3.9 mmol/L Normal 3.5-5.1 The [facility] Comment on above: Performed By: #### C MP ####[facility] Zyydmdkuvx[address] [place], [place] [address]Dr. Tadeo Smyth Protein [Mass/Vol] 7.0 g/dL Normal 6.4-8.2 The [facility] Comment on above: Performed By: #### C MP ####[facility] Uyjdowqqwe[address] [place], [place] [address]Dr. Tadeo Smyth Sodium [Moles/Vol] 143 mmol/L Normal 136-145 The [facility] Comment on above: Performed By: #### C MP ####[facility] Mzsqndfoyu[address] [place], [place] [address]Dr. Tadeo Smyth Urea nitrogen [Mass/Vol] 12.0 mg/dL Normal 7.0-18.0 The [facility] Comment on above: Performed By: #### C MP ####[facility] [address]he[address] [place] [id number]. Tadeo Smyth Urea nitrogen/Creatinine [Mass ratio] 14.8 mg/mg Normal The [facility] Comment on above: Performed By: #### C MP ####[facility] [address]fslzzwk[address] [place] [address]Dr. Tadeo Haja URINE MICROSCOPIC ONLYon BACTERIA LARGE Abnormal NONE SEEN The [facility] Comment on above: Performed By: #### SANDRO MERCHANTRO ####[facility] F[address]acqfxn[address] [place] [address]Dr. Tadeo Smyth Bacteria identified Cx Nom (U) INDICATED Normal The [facility] Comment on above: Performed By: #### SANDRO MERCHANTRO ####[facility] [address]oe[address]oy[address] [place] [address]Dr. Tadeo Smyth CAST NONE SEEN Normal NONE SEEN The [facility] Comment on above: Performed By: #### Matthew FRANCISCO UMICRO ####[facility] [address]ikybeaho[address] [place] [address]Dr. Tadeo Smyth Crystals LM Nom (Urine sed) NONE SEEN Normal NONE SEEN The [facility] Comment on above: Performed By: #### SANDRO MERCHANTRO ####[facility] Vatf[address]only[address] [place], [place] [address]Dr. Tadeo Smyth Epithelial cells LM Ql (Urine sed) RARE Normal NONE SEEN /RARE [facility] Comment on above: Performed By: #### Matthew FRANCISCO UMICRO ####[facility] Txbpviyaln[address] [place], [place] [address]Dr. Tadeo Smyth MUCOUS TRACE Abnormal NONE SEEN [facility] Comment on above: Performed By: #### SANDRO MERCHANTRO ####[facility] Nhjgjgyjqo[address] [place], [place] [address]Dr. Tadeo Smyth RBC 0-2 Normal 0-2 [facility] Comment on above: Performed By: #### SANDRO MERCHANTRO ####[facility] Cyszkmnbln[address] [place], [place] [address]Dr. Tadeo Smyth WBC 2-5 Abnormal NONE SEEN [facility] Comment on above: Performed By: #### SANDRO MERCHANTRO ####[facility] Ukfsvahdgd[address] [place], [place] [address]Dr. Tadeo Smyth AMYLASEon 06-04-2022 Amylase [Catalytic activity/Vol] 61 U/L Normal 25-115 [facility] Comment on above: Performed By: #### A MY, CMP, LIPA ####[facility] B[address]qqrqxlr[address] [place] [address]Dr. Tadeo Smyth CBC AUTO DIFFon 06-04-2022 BASO # 0.0 103/ul Normal 0.0-0.1 [facility] Comment on above: Performed By: #### C BC ####[facility] Cbszeejrvj[address] [place], [place] [address]Dr. Tadeo Haja Basophils/100 WBC (Bld) 0.5 % Normal 0.2-2.0 [facility] Comment on above: Performed By: #### C BC ####[facility] Waqcvoetel[address] [place], [place] [address]Dr. Tadeo Haja EO # 0.3 103/ul Normal 0.0-0.7 [facility] Comment on above: Performed By: #### C BC ####[facility] Ppdgmnjawi[address] [place], [place] [address]Dr. Margotnicole Smyth Eosinophils/100 WBC (Bld) 4.7 % Normal 0.9-7.0 [facility] Comment on above: Performed By: #### C BC ####[facility] Ovoorpfuoz[address] [place], [place] [address]Dr. Tadeo Msyth Erythrocyte distribution width (RBC) [Ratio] 13.2 % Normal 11.0-15.0 [facility] Comment on above: Performed By: #### C BC ####[facility] Lkemfgygqs[address] [place], [place] [address]Dr. Tadeo Smyth Hematocrit (Bld) [Volume fraction] 36.9 % Normal 36.0-48.0 [facility] Comment on above: Performed By: #### C BC ####[facility] Yrbsudwnwa[address] [place], [place] [address]Dr. Margotnicole Smyth Hemoglobin (Bld) [Mass/Vol] 11.9 g/dL Critically low 12.0-16.0 [facility] Comment on above: Performed By: #### C BC ####[facility] Pgkbvdxcku[address] [place], [place] [address]Dr. Tadeo Smyth IG # 0.01 10e3/ul Normal 0.00-0.03 [facility] Comment on above: Performed By: #### C BC ####[facility] [address]uk[address]ldf[address] [place] [id number]. Tadeo Smyth IG % 0.2 % Normal 0.0-0.5 [facility] Comment on above: Performed By: #### C BC ####[facility] Rxcgzkhvbu8177 [place] [id number]. Tadeo Smyth LYMPH # 2.3 103/ul Normal 1.2-3.8 [facility] Comment on above: Performed By: #### C BC ####[facility] Qxrfrvwhdv2172 [place] [id number]. Tadeo Smyth Lymphocytes/100 WBC (Bld) 37.3 % Normal 20.5-60.0 [facility] Comment on above: Performed By: #### C BC ####[facility] Lioeqrzybu[address] [place], [place] [address]Dr. Tadeo Smyth MANUAL DIFF REQ NO Normal [facility] Comment on above: Performed By: #### C BC ####[facility] Agibrhkfkk[address] [place], [place] [id number]. Tadeo Smyth MCH (RBC) [Entitic mass] 29.0 pg Normal 26.7-34.0 [facility] Comment on above: Performed By: #### C BC ####[facility] Mvij[address]wyuq[address] [place], [place] [id number]. Tadeo Smyth MCHC (RBC) [Mass/Vol] 32.2 g/dL Normal 29.9-35.2 [facility] Comment on above: Performed By: #### C BC ####[facility] Eujdjhpkvd[address] [place], [place] [id number]. Tadeo Smyth MCV (RBC) [Entitic vol] 90.0 fL Normal 81.0-99.0 [facility] Comment on above: Performed By: #### C BC ####[facility] Flgzvtmlph[address] [place], [place] [id number]. Tadeo Smyth MONO # 0.4 103/ul Normal 0.3-0.8 [facility] Comment on above: Performed By: #### C BC ####[facility] Kvnpesaxte7[address] [place] [id number]. Tadeo Smyth Monocytes/100 WBC (Bld) 6.8 % Normal 1.7-12.0 [facility] Comment on above: Performed By: #### C BC ####[facility] Cupzozzvjb3209 [place] [id number]. Tadeo Smyth NEUT # 3.2 103/ul Normal 1.4-6.5 [facility] Comment on above: Performed By: #### C BC ####[facility] Iqvxbxaetw9510 [place] [id number]. Tadeo Smyth Neutrophils/100 WBC (Bld) 50.5 % Normal 43.0-75.0 [facility] Comment on above: Performed By: #### C BC ####[facility] Kaugpopavb[address] [place] [address]Dr. Tadeo Smyth Platelet mean volume (Bld) [Entitic vol] 8.9 fL Critically low 9.5-13.5 [facility] Comment on above: Performed By: #### C BC ####[facility] Ipgmuiotjf9335 [place] [phone]. Tadeo Smyth PLT 387 103/ul Normal 150-450 [facility] Comment on above: Performed By: #### C BC ####[facility] Ojnlladivu2280 [place] [phone]. Tadeo Smyth RBC 4.10 106/ul Critically low 4.20-5.40 [facility] Comment on above: Performed By: #### C BC ####[facility] Odcxkcsfcz7321 [place] [id number]. Tadeo Smyth WBC 6.2 103/ul Normal 4.0-11.0 [facility] Comment on above: Performed By: #### C BC ####[facility] Qmylrzzfna[address] [place] [address]Dr. Tadeo Smy[address] CT ABD/PELV W CONon 06-04-[address] ABD/PELV W CON Normal [facility] ER URINE PROFILEon 2 Bilirubin Ql (U) Negative Normal NEGATIVE [facility] Comment on above: Performed By: #### SANDRO MERCHANTRO ####[facility] Wnolpdraba9475 [place] [address]Dr. Tadeo Smyth Clarity (U) CLEAR Normal CLEAR [facility] Comment on above: Performed By: #### SANDRO MERCHANTRO ####[facility] Yjlnygcvtw3555 [place] [address]Dr. Tadeo Smyth Color (U) LT. YELLOW Normal YELLOW [facility] Comment on above: Performed By: #### SANDRO MERCHANTRO ####[facility] Pnurnoycxw3172 [place] [address]Dr. Tadeo Smyth ERUAHD A micrscopic examina tion will be performed if indicated. Normal [facility] Comment on above: Performed By: #### SANDRO MERCHANTRO ####[facility] Oznfccpcfw[address] [place], [place] [address]Dr. Tadeo Smyth Glucose Ql (U) Negative Normal NEGATIVE [facility] Comment on above: Performed By: #### SANDRO MERCHANTRO ####[facility] Ucxtzwalpk4[address] [place], [place] [address]Dr. Tadeo Smyth Hemoglobin Ql (U) TRACE-INTACT Abnormal NEGATIVE [facility] Comment on above: Performed By: #### SANDRO MERCHANTRO ####[facility] Phnqtxstul77[address] [place] [address]Dr. Tadeo Smyth Ketones Ql (U) Negative Normal NEGATIVE [facility] Comment on above: Performed By: #### SANDRO MERCHANTRO ####[facility] Jnoahnwqib22[address] [place] [address]Dr. Tadeo Smyth LEUKOCYTES Negative Normal NEGATIVE [facility] Comment on above: Performed By: #### SANDRO MERCHANTRO ####[facility] Dlyctgmwib98[address] [place] [address]Dr. Tadeo Smyth Nitrite Ql (U) Negative Normal NEGATIVE [facility] Comment on above: Performed By: #### SANDRO MERCHANTRO ####[facility] Wnkrumavrw[address] [place], [place] [id number]. Tadeo Smyth pH (U) 6.5 [pH] Normal 5-9 [facility] Comment on above: Performed By: #### KAROL MERCHANT ####[facility] Xqjrtalfrt35[address] [place] [address]Dr. Tadeo Smyth SPEC GRAVITY 1.015 Normal 1.005-<=1.0 25 [facility] Comment on above: Performed By: #### KAROL MERCHANT ####[facility] Srdysqvttq5[address] [place] [address]Dr. Tadeo Smyth UA PROTEIN Negative Normal NEGATIVE/ TRACE [facility] Comment on above: Performed By: #### KAROL MERCHANT ####[facility] Wqwdxerklf[address] [place], [place] [address]Dr. Tadeo Smyth UR MICRO IND INDICATED Normal [facility] Comment on above: Performed By: #### KAROL MERCHANT ####[facility] Glzwjadxwo23[address] [place], [place] [address]Dr. Tadeo Smyth Urobilinogen Qn (U) 0.2 {Benito'U}/dL Normal 0.2 - 1. 0 [facility] Comment on above: Performed By: #### KAROL MERCHANT ####[facility] Vvujzcbvsg[address] [place], [place] [address]Dr. Tadeo Smyth LIPASEon 06-04-2022 Lipase [Catalytic activity/Vol] 81.0 U/L Normal 73.0-393.0 [facility] Comment on above: Performed By: #### A MY, CMP, LIPA ####[facility] Ttsextsxbq[address] [place], [place] [address]Dr. Tadeo Smyth PROF 14(COMP METB)on 022 Albumin [Mass/Vol] 3.6 g/dL Normal 3.4-5.0 [facility] Comment on above: Performed By: #### A MY, CMP, LIPA ####[facility] Fyrsbsbqga[address] [place], [place] [address]Dr. Tadeo Smyth Albumin/Globulin [Mass ratio] 1.0 {ratio} Normal [facility] Comment on above: Performed By: #### A MY, CMP, LIPA ####[facility] Mjeqnaiugm[address] [place] [address]Dr. Tadeo Smyth ALP [Catalytic activity/Vol] 150 U/L Critically high 46-116 [facility] Comment on above: Performed By: #### A MY, CMP, LIPA ####[facility] Lhwekrlmke[address] [place] [address]Dr. Tadeo Smyth ALT [Catalytic activity/Vol] 23 U/L Normal 14-59 [facility] Comment on above: Performed By: #### A MY, CMP, LIPA ####[facility] Mmkwqoapga[address] [place], [place] [address]Dr. Tadeo Smyth Anion gap [Moles/Vol] 13.2 mmol/L Normal [facility] Comment on above: Performed By: #### A MY, CMP, LIPA ####[facility] Ddbblllpfx[address] [place], [place] [address]Dr. Tadeo Smyth AST [Catalytic activity/Vol] 12 U/L Critically low 15-37 [facility] Comment on above: Performed By: #### A MY, CMP, LIPA ####[facility] Jheycmmkxc[address] [place], [place] [address]Dr. Tadeo Smyth Bilirubin [Mass/Vol] 0.1 mg/dL Critically low 0.2-1.0 [facility] Comment on above: Performed By: #### A MY, CMP, LIPA ####[facility] Mohfourywt[address] [place], [place] [address]Dr. Tadeo Smyth Calcium [Mass/Vol] 9.0 mg/dL Normal 8.5-10.1 [facility] Comment on above: Performed By: #### A MY, CMP, LIPA ####[facility] Yesuxlrxlk[address] [place], [place] [address]Dr. Tadeo Smyth Chloride [Moles/Vol] 104 mmol/L Normal 98-107 [facility] Comment on above: Performed By: #### A MY, CMP, LIPA ####[facility] Zoujjxktra[address] [place] [address]Dr. Tadeo Smyth CO2 [Moles/Vol] 26.6 mmol/L Normal 21.0-32.0 [facility] Comment on above: Performed By: #### A MY, CMP, LIPA ####[facility] C[address]xkofzss[address] [place] [address]Dr. Tadeo Smyth Creatinine [Mass/Vol] 0.97 mg/dL Normal 0.55-1.02 [facility] Comment on above: Performed By: #### A MY, CMP, LIPA ####[facility] Ivozarhqfl[address] [place], [place] [address]Dr. Tadeo Smyth EGFR-AF IRAQI >60 Normal >=60 [facility] Comment on above: Performed By: #### A MY, CMP, LIPA ####[facility] Brwefudnpv[address] [place], [place] [address]Dr. Tadeo Smyth EGFR-NON AF IRAQI 60 mL/min/1.73m2 Normal >=60 [facility] Comment on above: Performed By: #### A MY, CMP, LIPA ####[facility] Vmznurnwzm[address] [place], [place] [address]Dr. Tadeo Smyth Globulin (S) [Mass/Vol] 3.7 g/dL Normal [facility] Comment on above: Performed By: #### A MY, CMP, LIPA ####[facility] Lvuyqdihki[address] [place], [place] [address]Dr. Tadeo Smyth Glucose [Mass/Vol] 109 mg/dL Critically high 74-106 T [facility] Comment on above: Performed By: #### A MY, CMP, LIPA ####[facility] Axosnumapx[address] [place], [place] [address]Dr. Tadeo Smyth Potassium [Moles/Vol] 3.8 mmol/L Normal 3.5-5.1 [facility] Comment on above: Performed By: #### A MY, CMP, LIPA ####[facility] Iklqoapkas4[address] [place], [place] [address]Dr. Tadeo Smyth Protein [Mass/Vol] 7.3 g/dL Normal 6.4-8.2 [facility] Comment on above: Performed By: #### A MY, CMP, LIPA ####[facility] Xseiuoasrm[address] [place] [address]Dr. Tadeo Smyth Sodium [Moles/Vol] 140 mmol/L Normal 136-145 [facility] Comment on above: Performed By: #### A MY, CMP, LIPA ####[facility] Judaajvvjf4209 [place] [address]Dr. Tadeo Smyth Urea nitrogen [Mass/Vol] 21.0 mg/dL Critically high 7.0-18.0 [facility] Comment on above: Performed By: #### A MY, CMP, LIPA ####[facility] Prqpiohvwl[address] [place], [place] [address]Dr. Tadeo Smyth Urea nitrogen/Creatinine [Mass ratio] 21.6 mg/mg Normal [facility] Comment on above: Performed By: #### A MY, CMP, LIPA ####[facility] Sggibciogn[address] [place], [place] [address]Dr. Tadeo Smyth URINE MICROSCOPIC ONLYon BACTERIA NONE SEEN Normal NONE SEEN [facility] Comment on above: Performed By: #### SANDRO MERCHANTRO ####[facility] Tnvmujercy[address] [place], [place] [address]Dr. Tadeo Smyth Bacteria identified Cx Nom (U) NOT INDICATED Normal [facility] Comment on above: Performed By: #### SANDRO MERCHANTRO ####[facility] Fbuakecxzy[address] [place], [place] [address]Dr. Tadeo Smyth CAST NONE SEEN Normal NONE SEEN [facility] Comment on above: Performed By: #### Matthew FRANCISCO UMICRO ####[facility] Xnfywiggih[address] [place] [address]Dr. Tadeo Smyth Crystals LM Nom (Urine sed) NONE SEEN Normal NONE SEEN [facility] Comment on above: Performed By: #### Matthew FRANCISCO UMICRO ####[facility] Wipwygviod[address] [place] [address]Dr. Tadeo Smyth Epithelial cells LM Ql (Urine sed) FEW Abnormal NONE SEEN /RARE [facility] Comment on above: Performed By: #### E SANDRO FRANCISCORO ####[facility] Uxitnphhsx75[address] [place] [address]Dr. Tadeo Smyth MUCOUS NONE SEEN Normal NONE SEEN [facility] Comment on above: Performed By: #### E KAROL FRANCISCO ####[facility] Uvsuulstbz36[address] [place] [address]Dr. Tadeo Smyth RBC 0-2 Normal 0-2 [facility] Comment on above: Performed By: #### E KAROL FRANCISCO ####[facility] Vogeumvmvg[address] [place] [address]Dr. Tadeo Smyth WBC NONE SEEN Normal NONE SEEN [facility] Comment on above: Performed By: #### KAROL MERCHANT ####[facility] Gqmgueswli[address] [place] [address]Dr. Tadeo Smyth MICRO OTHER TESTSOrdered By: Guillermo Rocha on 04-29-2022 Fecal WBC Lactoferrin Negative (04/29/22 8:00 AM) Normal Negative [facility] [place] [facility] CULTURE URINEon 03-31-2022 CULTURE URINE Normal [facility] Comment on above: Performed By: #### U RCX ####[facility] Eznzbopvuu[address] [place], [place] [address]Dr. Tadeo Smyth CBC AUTO DIFFon 03-30-2022 BASO # 0.0 103/ul Normal 0.0-0.1 [facility] Comment on above: Performed By: #### C BC ####[facility] Yxblgtqlzt[address] [place], [place] [address]Dr. Tadeo Smyth Basophils/100 WBC (Bld) 0.4 % Normal 0.2-2.0 [facility] Comment on above: Performed By: #### C BC ####[facility] Setdcwejgw[address] [place], [place] [address]Dr. Tadeo Smyth EO # 0.3 103/ul Normal 0.0-0.7 [facility] Comment on above: Performed By: #### C BC ####[facility] Xwhuyqigrj[address] [place], [place] [address]Dr. Tadeo Smyth Eosinophils/100 WBC (Bld) 5.1 % Normal 0.9-7.0 [facility] Comment on above: Performed By: #### C BC ####[facility] Kqlctfqdkq360[address] [place] [address]Dr. Tadeo Smyth Erythrocyte distribution width (RBC) [Ratio] 12.8 % Normal 11.0-15.0 [facility] Comment on above: Performed By: #### C BC ####[facility] Ylbhwvrowv2593 [place] [address]Dr. Tadeo Smyth Hematocrit (Bld) [Volume fraction] 36.4 % Normal 36.0-48.0 [facility] Comment on above: Performed By: #### C BC ####[facility] Bipyorymcp48[address] [place] [address]Dr. Tadeo Smyth Hemoglobin (Bld) [Mass/Vol] 12.0 g/dL Normal 12.0-16.0 [facility] Comment on above: Performed By: #### C BC ####[facility] Knvichwncj[address] [place] [address]Dr. Tadeo Smyth IG # 0.02 10e3/ul Normal 0.00-0.03 [facility] Comment on above: Performed By: #### C BC ####[facility] Bofdsklrge5[address] [place] [address]Dr. Tadeo Smyth IG % 0.4 % Normal 0.0-0.5 [facility] Comment on above: Performed By: #### C BC ####[facility] F[address]onyegqp[address] [place] [address]Dr. Tadeo Smyth LYMPH # 1.4 103/ul Normal 1.2-3.8 [facility] Comment on above: Performed By: #### C BC ####[facility] Bxzpgmvckr2027 [place] [address]Dr. Tadeo Smyth Lymphocytes/100 WBC (Bld) 25.5 % Normal 20.5-60.0 [facility] Comment on above: Performed By: #### C BC ####[facility] Srypziqqit60[address] [place] [address]Dr. Tadeo Haja MANUAL DIFF REQ NO Normal [facility] Comment on above: Performed By: #### C BC ####[facility] Sbetfhfews2639 [place] [address]Dr. Tadeo Haja MCH (RBC) [Entitic mass] 29.1 pg Normal 26.7-34.0 [facility] Comment on above: Performed By: #### C BC ####[facility] Rxekzgwbid6687 [place] [address]Dr. Tadeo Haja MCHC (RBC) [Mass/Vol] 33.0 g/dL Normal 29.9-35.2 [facility] Comment on above: Performed By: #### C BC ####[facility] Ravahdmwom[address] [place], [place] [address]Dr. Margotnicole Smyth MCV (RBC) [Entitic vol] 88.3 fL Normal 81.0-99.0 [facility] Comment on above: Performed By: #### C BC ####[facility] Mhbiduajvr[address] [place], [place] [address]Dr. Tadeo Haja MONO # 0.4 103/ul Normal 0.3-0.8 [facility] Comment on above: Performed By: #### C BC ####[facility] Tmrepvpulk[address] [place], [place] [address]Dr. Margotnicole Smyth Monocytes/100 WBC (Bld) 7.1 % Normal 1.7-12.0 [facility] Comment on above: Performed By: #### C BC ####[facility] Bhpagmfzgx8[address] [place], [place] [address]Dr. Margotnicole Haja NEUT # 3.4 103/ul Normal 1.4-6.5 [facility] Comment on above: Performed By: #### C BC ####[facility] Qlhhzffyjh[address] [place], [place] [address]Dr. Margotnicole Smyth Neutrophils/100 WBC (Bld) 61.5 % Normal 43.0-75.0 [facility] Comment on above: Performed By: #### C BC ####[facility] [address]vhlqd[address] [place], [place] [id number]. Margotnicole Haja Platelet mean volume (Bld) [Entitic vol] 8.8 fL Critically low 9.5-13.5 [facility] Comment on above: Performed By: #### C BC ####[facility] Lrygewtwih4[address] [place] [address]Dr. Margotnicole Haja PLT 324 103/ul Normal 150-450 [facility] Comment on above: Performed By: #### C BC ####[facility] Jfghrtzrze280[address] [place] [address]Dr. Margotnicole Haja RBC 4.12 106/ul Critically low 4.20-5.40 [facility] Comment on above: Performed By: #### C BC ####[facility] Hjoyuhowhi[address] [place] [address]Dr. Margotnicole Haja WBC 5.5 103/ul Normal 4.0-11.0 [facility] Comment on above: Performed By: #### C BC ####[facility] Ozqfnezaig8414 [place] [address]Dr. Tadeo Smyth PROF 14(COMP METB)on 022 Albumin [Mass/Vol] 3.1 g/dL Critically low 3.4-5.0 [facility] Comment on above: Performed By: #### C MP ####[facility] Gydnlgbhtc79[address] [place] [address]Dr. Tadeo Smyth Albumin/Globulin [Mass ratio] 0.9 {ratio} Normal [facility] Comment on above: Performed By: #### C MP ####[facility] Hydncwqwbn77[address] [place] [address]Dr. Tadeo Smyth ALP [Catalytic activity/Vol] 119 U/L Critically high 46-116 [facility] Comment on above: Performed By: #### C MP ####[facility] Kxtmharkkx4251 [place] [address]Dr. Tadeo Smyth ALT [Catalytic activity/Vol] 17 U/L Normal 14-59 [facility] Comment on above: Performed By: #### C MP ####[facility] Bnydpbxwug4706 [place] [address]Dr. Tadeo Smyth Anion gap [Moles/Vol] 12.0 mmol/L Normal [facility] Comment on above: Performed By: #### C MP ####[facility] Eaqnjjwquj99[address] [place] [address]Dr. Tadeo Smyth AST [Catalytic activity/Vol] 16 U/L Normal 15-37 [facility] Comment on above: Performed By: #### C MP ####[facility] Mnmgbifkiv[address] [place], [place] [address]Dr. Tadeo Smyth Bilirubin [Mass/Vol] 0.4 mg/dL Normal 0.2-1.0 [facility] Comment on above: Performed By: #### C MP ####[facility] Vyiemsirda[address] [place], [place] [address]Dr. Tadeo Smyth Calcium [Mass/Vol] 8.9 mg/dL Normal 8.5-10.1 [facility] Comment on above: Performed By: #### C MP ####[facility] Wceyzzzlrf[address] [place], [place] [address]Dr. Tadeo Smyth Chloride [Moles/Vol] 107 mmol/L Normal 98-107 [facility] Comment on above: Performed By: #### C MP ####[facility] Viqnzkskac[address] [place], [place] [address]Dr. Tadeo Smyth CO2 [Moles/Vol] 26.9 mmol/L Normal 21.0-32.0 [facility] Comment on above: Performed By: #### C MP ####[facility] Hjasacmvhe[address] [place], [place] [address]Dr. Tadeo Smyth Creatinine [Mass/Vol] 0.82 mg/dL Normal 0.55-1.02 [facility] Comment on above: Performed By: #### C MP ####[facility] Ezftsdjfdt3724[address] [place], [place] [address]Dr. Tadeo Haja EGFR-AF IRAQI >60 Normal >=60 [facility] Comment on above: Performed By: #### C MP ####[facility] Ngxztzvqsz3[address] [place], [place] [address]Dr. Tadeo Haja EGFR-NON AF IRAQI >60 Normal >=60 [facility] Comment on above: Performed By: #### C MP ####[facility] Inc[address] [place] [address]Dr. Tadeo Smyth Globulin (S) [Mass/Vol] 3.5 g/dL Normal [facility] Comment on above: Performed By: #### C MP ####[facility] As[address]ucldll[address] [place] [address]Dr. Tadeo Smyth Glucose [Mass/Vol] 104 mg/dL Normal 74-106 [facility] Comment on above: Performed By: #### C MP ####[facility] Glpkzvsfyw24[address] [place] [address]Dr. Tadeo Smyth Potassium [Moles/Vol] 3.9 mmol/L Normal 3.5-5.1 [facility] Comment on above: Performed By: #### C MP ####[facility] Ljgwytfuvl[address] [place], [place] [address]Dr. Tadeo Smyth Protein [Mass/Vol] 6.6 g/dL Normal 6.4-8.2 [facility] Comment on above: Performed By: #### C MP ####[facility] Tafqkkhqgd0469[address] [place], [place] [address]Dr. Tadeo Smyth Sodium [Moles/Vol] 142 mmol/L Normal 136-145 [facility] Comment on above: Performed By: #### C MP ####[facility] Gtfpfdhdge9047[address] [place], [place] [address]Dr. Tadeo Smyth Urea nitrogen [Mass/Vol] 5.0 mg/dL Critically low 7.0-18.0 [facility] Comment on above: Performed By: #### C MP ####[facility] Rxtnkwvejk1525[address] [place], [place] [address]Dr. Tadeo Smyth Urea nitrogen/Creatinine [Mass ratio] 6.1 mg/mg Normal [facility] Comment on above: Performed By: #### C MP ####[facility] Twofdzfgwd9215[address] [place], [place] [address]Dr. Tadeo Haja CBC AUTO DIFFon 03-29-2022 BASO # 0.0 103/ul Normal 0.0-0.1 [facility] Comment on above: Performed By: #### C BC ####[facility] Zymqbynoej75[address] [place] [address]Dr. Tadeo Smyth Basophils/100 WBC (Bld) 0.4 % Normal 0.2-2.0 [facility] Comment on above: Performed By: #### C BC ####[facility] Algyhozpwy9514[address] [place], [place] [address]Dr. Tadeo Smyth EO # 0.2 103/ul Normal 0.0-0.7 [facility] Comment on above: Performed By: #### C BC ####[facility] Kuxlxjlmau1185[address] [place], [place] [address]Dr. Tadeo Smyth Eosinophils/100 WBC (Bld) 4.3 % Normal 0.9-7.0 [facility] Comment on above: Performed By: #### C BC ####[facility] Aoyvkclott1836[address] [place], [place] [address]Dr. Tadeo Smyth Erythrocyte distribution width (RBC) [Ratio] 12.9 % Normal 11.0-15.0 [facility] Comment on above: Performed By: #### C BC ####[facility] Sjvixqhrft68[address] [place], [place] [address]Dr. Tadeo Smyth Hematocrit (Bld) [Volume fraction] 33.8 % Critically low 36.0-48.0 [facility] Comment on above: Performed By: #### C BC ####[facility] Zjjrikqskc65[address] [place], [place] [address]Dr. Tadeo Smyth Hemoglobin (Bld) [Mass/Vol] 11.1 g/dL Critically low 12.0-16.0 [facility] Comment on above: Performed By: #### C BC ####[facility] Dfrwkxgkev[address] [place], [place] [address]Dr. Tadeo Smyth IG # 0.01 10e3/ul Normal 0.00-0.03 [facility] Comment on above: Performed By: #### C BC ####[facility] Lxapkoffjr8286[address] [place], [place] [address]DrNeo Smyth IG % 0.2 % Normal 0.0-0.5 [facility] Comment on above: Performed By: #### C BC ####[facility] Mreyrxmjkz69[address] [place] [address]DrNeo Smyth LYMPH # 1.5 103/ul Normal 1.2-3.8 [facility] Comment on above: Performed By: #### C BC ####[facility] Tujgewzgqn1745 [place] [address]DrNeo Smyth Lymphocytes/100 WBC (Bld) 29.9 % Normal 20.5-60.0 [facility] Comment on above: Performed By: #### C BC ####[facility] Wtqljtlolx4[address] [place], [place] [address]DrNeo Smyth MANUAL DIFF REQ NO Normal [facility] Comment on above: Performed By: #### C BC ####[facility] Mvwrglbrdv[address] [place], [place] [address]DrNeo Smyth MCH (RBC) [Entitic mass] 29.3 pg Normal 26.7-34.0 [facility] Comment on above: Performed By: #### C BC ####[facility] Ybbhylakbo85[address] [place], [place] [address]DrNeo Smyth MCHC (RBC) [Mass/Vol] 32.8 g/dL Normal 29.9-35.2 [facility] Comment on above: Performed By: #### C BC ####[facility] Zjknpghxku[address] [place], [place] [address]DrNeo Smyth MCV (RBC) [Entitic vol] 89.2 fL Normal 81.0-99.0 [facility] Comment on above: Performed By: #### C BC ####[facility] Kxpzseeepm9[address] [place], [place] [address]DrNeo Smyth MONO # 0.4 103/ul Normal 0.3-0.8 [facility] Comment on above: Performed By: #### C BC ####[facility] Mwbpffqcfd6116[address] [place], [place] [address]DrNeo Smyth Monocytes/100 WBC (Bld) 7.8 % Normal 1.7-12.0 [facility] Comment on above: Performed By: #### C BC ####[facility] Iqabfqmjwy9[address] [place] [address]Dr. Margotnicole Smyth NEUT # 2.8 103/ul Normal 1.4-6.5 [facility] Comment on above: Performed By: #### C BC ####[facility] Rvrbljdhlm4057 [place] [address]DrNeo Smyth Neutrophils/100 WBC (Bld) 57.4 % Normal 43.0-75.0 [facility] Comment on above: Performed By: #### C BC ####[facility] Iiftbhggut2133[address] [place], [place] [address]DrNeo Smyth Platelet mean volume (Bld) [Entitic vol] 8.9 fL Critically low 9.5-13.5 [facility] Comment on above: Performed By: #### C BC ####[facility] Kiquzrmokr[address] [place], [place] [address]DrNeo Smyth PLT 314 103/ul Normal 150-450 [facility] Comment on above: Performed By: #### C BC ####[facility] Gyztpjtghk0564[address] [place], [place] [address]DrNeo Smyth RBC 3.79 106/ul Critically low 4.20-5.40 [facility] Comment on above: Performed By: #### C BC ####[facility] Zrvjbwddqw364[address] [place], [place] [address]DrNeo Smyth WBC 4.9 103/ul Normal 4.0-11.0 [facility] Comment on above: Performed By: #### C BC ####[facility] Lowpssjfmo9411[address] [place], [place] [address]Dr. Tadeo Smyth PROF 14(COMP METB)on 022 Albumin [Mass/Vol] 2.8 g/dL Critically low 3.4-5.0 [facility] Comment on above: Performed By: #### C MP ####[facility] Wpjmffmsyi30[address] [place], [place] [address]DrNeo Smyth Albumin/Globulin [Mass ratio] 0.8 {ratio} Normal [facility] Comment on above: Performed By: #### C MP ####[facility] Dqyoioeyni43[address] [place] [address]Dr. Tadeo Smyth ALP [Catalytic activity/Vol] 117 U/L Critically high 46-116 [facility] Comment on above: Performed By: #### C MP ####[facility] Yrdcsahlbr52[address] [place], [place] [address]Dr. Tadeo Haja ALT [Catalytic activity/Vol] 13 U/L Critically low 14-59 [facility] Comment on above: Performed By: #### C MP ####[facility] Fxfhylbhor2212[address] [place], [place] [address]Dr. Tadeo Haja Anion gap [Moles/Vol] 8.7 mmol/L Normal [facility] Comment on above: Performed By: #### C MP ####[facility] Mfomolsjlk30[address] [place], [place] [address]Dr. Tadeo Haja AST [Catalytic activity/Vol] 12 U/L Critically low 15-37 [facility] Comment on above: Performed By: #### C MP ####[facility] Wdqznqsbeg6159[address] [place], [place] [address]Dr. Tadeo Haja Bilirubin [Mass/Vol] 0.4 mg/dL Normal 0.2-1.0 [facility] Comment on above: Performed By: #### C MP ####[facility] Iwwbpxhcou6952[address] [place], [place] [address]Dr. Tadeo Haja Calcium [Mass/Vol] 8.5 mg/dL Normal 8.5-10.1 [facility] Comment on above: Performed By: #### C MP ####[facility] Narmoiaadv[address] [place], [place] [address]Dr. Margotnicole Smyth Chloride [Moles/Vol] 108 mmol/L Critically high 98-107 [facility] Comment on above: Performed By: #### C MP ####[facility] Srqoivgvha06[address] [place], [place] [address]Dr. Margotnicole Smyth CO2 [Moles/Vol] 28.0 mmol/L Normal 21.0-32.0 [facility] Comment on above: Performed By: #### C MP ####[facility] Gibfdothmq29[address] [place] [address]Dr. Tadeo Haja Creatinine [Mass/Vol] 0.74 mg/dL Normal 0.55-1.02 [facility] Comment on above: Performed By: #### C MP ####[facility] Uidocghsdg4[address] [place] [address]Dr. Tadeo Haja EGFR-AF IRAQI >60 Normal >=60 [facility] Comment on above: Performed By: #### C MP ####[facility] Yuxfjzjmpj16[address] [place], [place] [address]Dr. Tadeo Haja EGFR-NON AF IRAQI >60 Normal >=60 [facility] Comment on above: Performed By: #### C MP ####[facility] Whctkaqden0616[address] [place], [place] [address]Dr. Tadeo Smyth Globulin (S) [Mass/Vol] 3.4 g/dL Normal [facility] Comment on above: Performed By: #### C MP ####[facility] Kfziywttfh3313[address] [place], [place] [address]Dr. Margotnicole Haja Glucose [Mass/Vol] 107 mg/dL Critically high 74-106 [facility] Comment on above: Performed By: #### C MP ####[facility] Diqqzfcsop[address] [place], [place] [address]Dr. Tadeo Smyth Potassium [Moles/Vol] 3.7 mmol/L Normal 3.5-5.1 [facility] Comment on above: Performed By: #### C MP ####[facility] Xwacywvecz[address] [place], [place] [address]Dr. Tadeo Smyth Protein [Mass/Vol] 6.2 g/dL Critically low 6.4-8.2 [facility] Comment on above: Performed By: #### C MP ####[facility] Dxzyinhvjh[address] [place], [place] [address]Dr. Tadeo Smyth Sodium [Moles/Vol] 141 mmol/L Normal 136-145 [facility] Comment on above: Performed By: #### C MP ####[facility] Gyjpwmuega3325[address] [place], [place] [address]Dr. Tadeo Smyth Urea nitrogen [Mass/Vol] 7.0 mg/dL Normal 7.0-18.0 [facility] Comment on above: Performed By: #### C MP ####[facility] Axjoaohvhd8267[address] [place], [place] [address]Dr. Tadeo Haja Urea nitrogen/Creatinine [Mass ratio] 9.5 mg/mg Normal [facility] Comment on above: Performed By: #### C MP ####[facility] Yafaftmlsw8546[address] [place], [place] [address]Dr. Tadeo Haja XR KUB 1 VIEWon 03-29-2022 XR KUB 1 VIEW Normal [facility] CBC AUTO DIFFon 03-28-2022 BASO # 0.0 103/ul Normal 0.0-0.1 [facility] Comment on above: Performed By: #### C BC ####[facility] Pabjvcqccc[address] [place], [place] [address]Dr. Margotnicole Haja Basophils/100 WBC (Bld) 0.7 % Normal 0.2-2.0 [facility] Comment on above: Performed By: #### C BC ####[facility] Rxsleqlucl3749[address] [place], [place] [address]Dr. Margotnicole Haja EO # 0.2 103/ul Normal 0.0-0.7 [facility] Comment on above: Performed By: #### C BC ####[facility] Pnuokxcqwx[address] [place], [place] [address]Dr. Tadeo Haja Eosinophils/100 WBC (Bld) 3.3 % Normal 0.9-7.0 [facility] Comment on above: Performed By: #### C BC ####[facility] Yrsezwymhx0799[address] [place], [place] [address]Dr. Tadeo Haja Erythrocyte distribution width (RBC) [Ratio] 13.2 % Normal 11.0-15.0 [facility] Comment on above: Performed By: #### C BC ####[facility] Mmdmmpgwbu[address] [place], [place] [address]Dr. Margotnicole Smyth Hematocrit (Bld) [Volume fraction] 34.2 % Critically low 36.0-48.0 [facility] Comment on above: Performed By: #### C BC ####[facility] Bsgpbxaadl[address] [place] [address]Dr. Tadeo Smyth Hemoglobin (Bld) [Mass/Vol] 10.8 g/dL Critically low 12.0-16.0 [facility] Comment on above: Performed By: #### C BC ####[facility] Dpxxqbiczv8793[address] [place], [place] [address]Dr. Tadeo Smyth IG # 0.01 10e3/ul Normal 0.00-0.03 [facility] Comment on above: Performed By: #### C BC ####[facility] Emtkwhuprv0093[address] [place], [place] [address]Dr. Tadeo Smyth IG % 0.2 % Normal 0.0-0.5 [facility] Comment on above: Performed By: #### C BC ####[facility] Koejbyfvhu24[address] [place], [place] [address]Dr. Tadeo Smyth LYMPH # 1.3 103/ul Normal 1.2-3.8 [facility] Comment on above: Performed By: #### C BC ####[facility] Fpvrfiswzt3262[address] [place], [place] [address]Dr. Tadeo Smyth Lymphocytes/100 WBC (Bld) 28.4 % Normal 20.5-60.0 [facility] Comment on above: Performed By: #### C BC ####[facility] Kfbrmcwuth[address] [place], [place] [address]DrNeo Smyth MANUAL DIFF REQ NO Normal [facility] Comment on above: Performed By: #### C BC ####[facility] Nierhbvrkx2119[address] [place], [place] [address]Dr. Tadeo Smyth MCH (RBC) [Entitic mass] 28.3 pg Normal 26.7-34.0 [facility] Comment on above: Performed By: #### C BC ####[facility] Iyltxjkrtq[address] [place], [place] [address]Dr. Tadeo Smyth MCHC (RBC) [Mass/Vol] 31.6 g/dL Normal 29.9-35.2 [facility] Comment on above: Performed By: #### C BC ####[facility] Trbejhvohy90[address] [place] [address]DrNeo Frostnicole Haja MCV (RBC) [Entitic vol] 89.5 fL Normal 81.0-99.0 [facility] Comment on above: Performed By: #### C BC ####[facility] Xchqvohvls[address] [place], [place] [address]DrNeo Smyth MONO # 0.3 103/ul Normal 0.3-0.8 [facility] Comment on above: Performed By: #### C BC ####[facility] Sdhbtdupri33[address] [place], [place] [address]DrNeo Smyth Monocytes/100 WBC (Bld) 5.5 % Normal 1.7-12.0 [facility] Comment on above: Performed By: #### C BC ####[facility] Iuxgcesmgo06[address] [place], [place] [address]DrNeo Smyth NEUT # 2.8 103/ul Normal 1.4-6.5 [facility] Comment on above: Performed By: #### C BC ####[facility] Hekozxsfkh2[address] [place], [place] [address]DrNeo Smyth Neutrophils/100 WBC (Bld) 61.9 % Normal 43.0-75.0 [facility] Comment on above: Performed By: #### C BC ####[facility] Tcucqddldy6[address] [place], [place] [address]DrNeo Smyth Platelet mean volume (Bld) [Entitic vol] 9.1 fL Critically low 9.5-13.5 [facility] Comment on above: Performed By: #### C BC ####[facility] Cilahkcrdd25[address] [place], [place] [address]DrNeo Smyth PLT 327 103/ul Normal 150-450 [facility] Comment on above: Performed By: #### C BC ####[facility] Ljaxhpgpgf[address] [place], [place] [address]DrNeo Smyth RBC 3.82 106/ul Critically low 4.20-5.40 [facility] Comment on above: Performed By: #### C BC ####[facility] Kemwerjpsl[address] [place] [address]Dr. Tadeo Smyth WBC 4.5 103/ul Normal 4.0-11.0 [facility] Comment on above: Performed By: #### C BC ####[facility] Cbtnprydep27[address] [place] [address]Dr. Tadeo Haja POINT OF CARE GLUCOSEon 03-06 Glucose [Mass/Vol] 84 mg/dL Normal 74-106 [facility] Comment on above: Performed By: #### P OCGLUC ####[facility] Oqlaxzqwox64[address] [place] [address]Dr. Tadeo Haja PROF 14(COMP METB)on 022 Albumin [Mass/Vol] 2.9 g/dL Critically low 3.4-5.0 [facility] Comment on above: Performed By: #### C MP ####[facility] Usvgynyvqg47[address] [place] [address]Dr. Tadeo Haja Albumin/Globulin [Mass ratio] 0.9 {ratio} Normal [facility] Comment on above: Performed By: #### C MP ####[facility] Huimhiwdkt[address] [place] [address]Dr. Tadeo Haja ALP [Catalytic activity/Vol] 119 U/L Critically high 46-116 [facility] Comment on above: Performed By: #### C MP ####[facility] Xgplkbmefr32[address] [place] [address]Dr. Tadeo Haja ALT [Catalytic activity/Vol] 15 U/L Normal 14-59 [facility] Comment on above: Performed By: #### C MP ####[facility] Azxrhsbsjl04[address] [place] [address]DrNeo Tadeo Haja Anion gap [Moles/Vol] 7.9 mmol/L Normal [facility] Comment on above: Performed By: #### C MP ####[facility] Zesiehdqrn99[address] [place] [address]Dr. Tadeo Smyth AST [Catalytic activity/Vol] 11 U/L Critically low 15-37 [facility] Comment on above: Performed By: #### C MP ####[facility] Yjpyrgbamh86[address] [place], [place] [address]Dr. Tadeo Smyth Bilirubin [Mass/Vol] 0.4 mg/dL Normal 0.2-1.0 [facility] Comment on above: Performed By: #### C MP ####[facility] Abxfdhqzsq030[address] [place], [place] [address]Dr. Margotnicole Haja Calcium [Mass/Vol] 8.7 mg/dL Normal 8.5-10.1 [facility] Comment on above: Performed By: #### C MP ####[facility] Fkflogljdp[address] [place], [place] [address]Dr. Tadeo Smyth Chloride [Moles/Vol] 109 mmol/L Critically high 98-107 [facility] Comment on above: Performed By: #### C MP ####[facility] Hhlwdabjnb8[address] [place], [place] [address]Dr. Tadeo Haja CO2 [Moles/Vol] 27.9 mmol/L Normal 21.0-32.0 [facility] Comment on above: Performed By: #### C MP ####[facility] Xrsfsklwyn64[address] [place], [place] [address]Dr. Margotnicole Haja Creatinine [Mass/Vol] 0.75 mg/dL Normal 0.55-1.02 [facility] Comment on above: Performed By: #### C MP ####[facility] Zesthptbcg[address] [place], [place] [address]Dr. Margotnicole Haja EGFR-AF IRAQI >60 Normal >=60 [facility] Comment on above: Performed By: #### C MP ####[facility] Tgsiqmfyfa[address] [place], [place] [address]Dr. Tadeo Smyth EGFR-NON AF IRAQI >60 Normal >=60 [facility] Comment on above: Performed By: #### C MP ####[facility] Cayaovxtxp[address] [place], [place] [address]Dr. Tadeo Smyth Globulin (S) [Mass/Vol] 3.3 g/dL Normal [facility] Comment on above: Performed By: #### C MP ####[facility] Aeptmhzzxf[address] [place] [address]Dr. Tadeo Smyth Glucose [Mass/Vol] 95 mg/dL Normal 74-106 [facility] Comment on above: Performed By: #### C MP ####[facility] Qiaxlwkvlr6668 [place] [address]Dr. Tadeo Smyth Potassium [Moles/Vol] 3.8 mmol/L Normal 3.5-5.1 [facility] Comment on above: Performed By: #### C MP ####[facility] Fiksfzcbmp11[address] [place] [address]Dr. Tadeo Smyth Protein [Mass/Vol] 6.2 g/dL Critically low 6.4-8.2 [facility] Comment on above: Performed By: #### C MP ####[facility] V[address]qkeqfixl[address] [place], [place] [address]Dr. Tadeo Smyth Sodium [Moles/Vol] 141 mmol/L Normal 136-145 [facility] Comment on above: Performed By: #### C MP ####[facility] Zgbzgldngo9[address] [place], [place] [address]Dr. Tadeo Smyth Urea nitrogen [Mass/Vol] 8.0 mg/dL Normal 7.0-18.0 [facility] Comment on above: Performed By: #### C MP ####[facility] Yfztacrlgx5[address] [place], [place] [address]Dr. Tadoe Smyth Urea nitrogen/Creatinine [Mass ratio] 10.7 mg/mg Normal [facility] Comment on above: Performed By: #### C MP ####[facility] Twewlrazxs[address] [place], [place] [address]Dr. Tadeo Smyth UA (CLEAN/CATCH) GROUND [employer] SUPPORT/MICRO I F IND.on 03-28-2022 Bilirubin Ql (U) Negative Normal NEGATIVE [facility] Comment on above: Performed By: #### U ACSIND, UMICRO ####[facility] Kapap[address]lj[address] [place], [place] [address]Dr. Tadeo Smyth Clarity (U) SL CLOUDY Abnormal CLEAR [facility] Comment on above: Performed By: #### U ACSBLANE, UMICRO ####[facility] [address]dnzt[address] [place] [address]Dr. Tadeo Smyth Color (U) LT. YELLOW Normal YELLOW The [facility] Comment on above: Performed By: #### U ACSBLANE, UMICRO ####[facility] Fkofdsffbu[address] [place] [address]Dr. Tadeo Smyth Glucose Ql (U) Negative Normal NEGATIVE The [facility] Comment on above: Performed By: #### U ACSBLANE, UMICRO ####[facility] Fzcwgeemqp87[address] [place] [address]Dr. Tadeo Smyth Hemoglobin Ql (U) TRACE-INTACT Abnormal NEGATIVE The [facility] Comment on above: Performed By: #### U ACSBLANE, UMICRO ####[facility] Rbfbyqiaqp37[address] [place] [address]Dr. Tadeo Smyth Ketones Ql (U) TRACE Abnormal NEGATIVE The [facility] Comment on above: Performed By: #### U ACSBLANE, ICRO ####[facility] Cdlosphl[address] [place], [place] [address]Dr. Tadeo Smyth LEUKOCYTES Negative Normal NEGATIVE The [facility] Comment on above: Performed By: #### U ACSBLANE, UMICRO ####[facility] Z[address] [place], [place] [address]Dr. Tadeo Smyth Nitrite Ql (U) Negative Normal NEGATIVE The [facility] Comment on above: Performed By: #### U ACSBLANE, UMICRO ####[facility] Yazzcylbxx[address] [place] [address]Dr. Tadeo Smyth pH (U) 6.5 [pH] Normal 5-9 [facility] Comment on above: Performed By: #### U ACSBLAEN, UMICRO ####[facility] Dennddhxgl[address] [place] [address]Dr. Tadeo Smyth SPEC GRAVITY 1.015 Normal 1.005-<=1.0 25 [facility] Comment on above: Performed By: #### U ACSBLANE, UMICRO ####[facility] Koc[address]rbhx[address] [place] [address]Dr. Tadeo Smyth UA PROTEIN Negative Normal NEGATIVE/ TRACE The [facility] Comment on above: Performed By: #### U ACSBLANE, UMICRO ####[facility] Xsltdhfimh4580 [place] [address]Dr. Tadeo Smyth UR MICRO IND INDICATED Normal The [facility] Comment on above: Performed By: #### U ACSBLANE, UMICRO ####[facility] Mefepxaqec3482 [place] [address]Dr. Tadeo Smyth Urobilinogen Qn (U) 0.2 {Benito'U}/dL Normal 0.2 - 1. 0 The [facility] Comment on above: Performed By: #### U ACSBLANE, UMICRO ####[facility] Mgzzalvgob57[address] [place] [address]Dr. Tadeo Smyth URINE MICROSCOPIC ONLYon BACTERIA MODERATE Abnormal NONE SEEN The [facility] Comment on above: Performed By: #### U ACSBLANE, UMICRO ####[facility] Vomhhxqhur35[address] [place] [address]Dr. Tadeo Smyth Bacteria identified Cx Nom (U) INDICATED Normal The [facility] Comment on above: Performed By: #### U ACSBLANE, UMICRO ####[facility] Xmopvauena74[address] [place] [address]Dr. Tadeo Smyth CAST NONE SEEN Normal NONE SEEN The [facility] Comment on above: Performed By: #### U ACSBLANE, UMICRO ####[facility] Emrazhhugn[address] [place] [address]Dr. Tadeo Smyth Crystals LM Nom (Urine sed) NONE SEEN Normal NONE SEEN The [facility] Comment on above: Performed By: #### U ACSBLNAE, UMICRO ####[facility] Tijwtysqvj3682 [place] [address]Dr. Tadeo Smyth Epithelial cells LM Ql (Urine sed) RARE Normal NONE SEEN /RARE The [facility] Comment on above: Performed By: #### U ACSBLANE, UMICRO ####[facility] Vkinlrvafh[address] [place] [address]Dr. Tadeo Smyth MUCOUS NONE SEEN Normal NONE SEEN The [facility] Comment on above: Performed By: #### U KAROL GARVEY ####[facility] Vdkhmmjcpr94[address] [place] [address]Dr. Tadeo Smyth RBC NONE SEEN Abnormal 0-2 The [facility] Comment on above: Performed By: #### U KAROL GARVEY ####[facility] Yuscrhbrko[address] [place] [address]Dr. Tadeo Smyth WBC 2-5 Abnormal NONE SEEN The [facility] Comment on above: Performed By: #### U KAROL AGRVEY ####[facility] Jcdgzfaddi8963 [place] [address]Dr. Tadeo Smyth XR ABD FLAT UP_PA Kasey 03-28 XR ABD FLAT UP_PA CH Normal The [facility] CBC AUTO DIFFon 03-27-2022 BASO # 0.0 103/ul Normal 0.0-0.1 The [facility] Comment on above: Performed By: #### C BC ####[facility] Mkrmglanic101[address] [place] [address]Dr. Margotnicole Smyth Basophils/100 WBC (Bld) 0.5 % Normal 0.2-2.0 The [facility] Comment on above: Performed By: #### C BC ####[facility] Lndjixoaqe8722 [place] [address]Dr. Tadeo Haja EO # 0.2 103/ul Normal 0.0-0.7 The [facility] Comment on above: Performed By: #### C BC ####[facility] Akhhfhhkoo4794 [place] [address]Dr. Tadeo Haja Eosinophils/100 WBC (Bld) 3.2 % Normal 0.9-7.0 The [facility] Comment on above: Performed By: #### C BC ####[facility] Dxmhqcwucg3576 [place] [address]Dr. Margotnicole Smyth Erythrocyte distribution width (RBC) [Ratio] 13.1 % Normal 11.0-15.0 The [facility] Comment on above: Performed By: #### C BC ####[facility] Xmerqsjkig6831 [place] [address]Dr. Tadeo Smyth Hematocrit (Bld) [Volume fraction] 34.8 % Critically low 36.0-48.0 [facility] Comment on above: Performed By: #### C BC ####[facility] Qpiwbtufot3741 [place] [address]DrNeo Tadeo Smyth Hemoglobin (Bld) [Mass/Vol] 11.3 g/dL Critically low 12.0-16.0 [facility] Comment on above: Performed By: #### C BC ####[facility] Gvvbprn[address] [place], [place] [address]Dr. Tadeo Smyth IG # 0.01 10e3/ul Normal 0.00-0.03 [facility] Comment on above: Performed By: #### C BC ####[facility] Udtviuaobu[address] [place], [place] [address]Dr. Margotnicole Smyth IG % 0.2 % Normal 0.0-0.5 [facility] Comment on above: Performed By: #### C BC ####[facility] Pcsypiiayk[address] [place], [place] [address]Dr. Tadeo Haja LYMPH # 1.6 103/ul Normal 1.2-3.8 [facility] Comment on above: Performed By: #### C BC ####[facility] Jwzkcrtpea[address] [place], [place] [address]DrNeo Margotnicole Smyth Lymphocytes/100 WBC (Bld) 29.1 % Normal 20.5-60.0 [facility] Comment on above: Performed By: #### C BC ####[facility] Tnrz[address]lsbk[address] [place], [place] [address]Dr. Margotnicole Smyth MANUAL DIFF REQ NO Normal The [facility] Comment on above: Performed By: #### C BC ####[facility] Pmgkuxelrs[address] [place], [place] [address]DrNeo Tadeo Haja MCH (RBC) [Entitic mass] 29.1 pg Normal 26.7-34.0 [facility] Comment on above: Performed By: #### C BC ####[facility] Exm[address] [place] [id number]. Tadeo Haja MCHC (RBC) [Mass/Vol] 32.5 g/dL Normal 29.9-35.2 [facility] Comment on above: Performed By: #### C BC ####[facility] Vzxqkaczrs8232 [place] [id number]. Tadeo Smyth MCV (RBC) [Entitic vol] 89.7 fL Normal 81.0-99.0 [facility] Comment on above: Performed By: #### C BC ####[facility] Wtdv[address]ys[address] [place], [place] [address]Dr. Tadeo Smyth MONO # 0.3 103/ul Normal 0.3-0.8 [facility] Comment on above: Performed By: #### C BC ####[facility] Tepszwxbyo[address] [place], [place] [address]Dr. Tadeo Smyth Monocytes/100 WBC (Bld) 5.7 % Normal 1.7-12.0 [facility] Comment on above: Performed By: #### C BC ####[facility] Hqvcwqkvxr[address] [place], [place] [address]Dr. Tadeo Smyth NEUT # 3.5 103/ul Normal 1.4-6.5 [facility] Comment on above: Performed By: #### C BC ####[facility] Myjyjsetbq[address] [place], [place] [address]Dr. Tadeo Smyth Neutrophils/100 WBC (Bld) 61.3 % Normal 43.0-75.0 [facility] Comment on above: Performed By: #### C BC ####[facility] Jpo[address]yd[address]ht[address] [place], [place] [address]Dr. Tadeo Smyth Platelet mean volume (Bld) [Entitic vol] 9.1 fL Critically low 9.5-13.5 [facility] Comment on above: Performed By: #### C BC ####[facility] Migdgjkkvo[address] [place], [place] [address]Dr. Tadeo Smyth PLT 355 103/ul Normal 150-450 [facility] Comment on above: Performed By: #### C BC ####[facility] Sevltwvonv7194 [place], [place] [address]Ok. Tadeo Smyth RBC 3.88 106/ul Critically low 4.20-5.40 [facility] Comment on above: Performed By: #### C BC ####[facility] Syagrekazr8047 [place], [place] [address]Lf. Tadeo Smyth WBC 5.6 103/ul Normal 4.0-11.0 [facility] Comment on above: Performed By: #### C BC ####[facility] Ajfucxihfx6156 [place], [place] [address]Jz. T[address] CT ABD/PELV W CONon 03-27-20 CT ABD/PELV W CON Normal The [facility] CT ABD/PELVIS WO CONon 03-27 CT ABD/PELVIS WO CON Normal [facility]06 SARS-CoV-2 (COVID-19) RNA CHEN+probe Ql (Unsp spec) Not detected Normal NOT DETECTED The [facility] Comment on above: Result Comment: When [...] for this test is supported by the [employer] Professor of Health and Human Service's declaration that [...] be used). Performed By: #### C VDTBH ####[facility] Lfafdktmvi7803 [place], [place] [address]Kn. Tadeo Smyth ER URINE PROFILEon 07-23-202 2 Bilirubin Ql (U) Negative Normal NEGATIVE The [facility] Comment on above: Performed By: #### E RUR, PREGU ####[facility] Mczewoqhsc[address] [place], [place] [address]Dr. Tadeo Smyth Clarity (U) CLEAR Normal CLEAR The [facility] Comment on above: Performed By: #### E RUR, PREGU ####[facility] Hpzxb[address]ynyj[address] [place], [place] [address]Dr. Tadeo Smyth Color (U) LT. YELLOW Normal YELLOW The [facility] Comment on above: Performed By: #### E RUR, PREGU ####[facility] Qkqdir[address]yo[address] [place], [place] [address]Dr. Tadeo Haja ERUAHD A micrscopic examina tion will be performed if indicated. Normal The [facility] Comment on above: Performed By: #### E RUR, PREGU ####[facility] [address]qsp[address] [place], [place] [address]Dr. Tadeo Smyth Glucose Ql (U) Negative Normal NEGATIVE The [facility] Comment on above: Performed By: #### E RUR, PREGU ####[facility] Wwtaq[address]km[address] [place], [place] [address]Dr. Tadeo Smyth Hemoglobin Ql (U) SMALL Abnormal NEGATIVE The [facility] Comment on above: Performed By: #### E RUR, PREGU ####[facility] Xedioputsg[address] [place], [place] [address]Dr. Tadeo Smyth Ketones Ql (U) TRACE Abnormal NEGATIVE The [facility] Comment on above: Performed By: #### E RUR, PREGU ####[facility] Zcbyraroak[address] [place], [place] [address]Dr. Tadeo Smyth LEUKOCYTES Negative Normal NEGATIVE The [facility] Comment on above: Performed By: #### E RUR, PREGU ####[facility] Mexdwtdiar[address] [place], [place] [address]Dr. Tadeo Smyth Nitrite Ql (U) Negative Normal NEGATIVE The [facility] Comment on above: Performed By: #### E RUR, PREGU ####[facility] Bjwg[address]frqx[address] [place], [place] [id number]. Margotnicole Smyth pH (U) 6.0 [pH] Normal 5-9 The [facility] Comment on above: Performed By: #### Matthew RUYovanny, PREGU ####[facility] Iq[address]zkr[address] [place] [address]Dr. Tadeo Smyth SPEC GRAVITY >=1.030 Abnormal 1.005-<=1.0 25 The [facility] Comment on above: Performed By: #### Matthew BURLESONR, PREGU ####[facility] Bkmswyfnbv39[address] [place] [address]Dr. Tadeo Smyth UA PROTEIN Negative Normal NEGATIVE/ TRACE The [facility] Comment on above: Performed By: #### Matthew FRANCISCO, PREGU ####[facility] Luzodlnmzn[address] [place], [place] [address]Dr. Tadeo Smyth UR MICRO IND NOT INDICATED Normal The [facility] Comment on above: Performed By: #### Matthew FRANCISCO, PREGU ####[facility] Cczncgltug[address] [place], [place] [address]Dr. Tadeo Smyth Urobilinogen Qn (U) 0.2 {Benito'U}/dL Normal 0.2 - 1. 0 The [facility] Comment on above: Performed By: #### Matthew FRANCISCO, PREGU ####[facility] H[address]rdhsnfw[address] [place], [place] [address]Dr. Margotnicole Smyth LIPASEon 03-27-2022 Lipase [Catalytic activity/Vol] 126.0 U/L Normal 73.0-393.0 The [facility] Comment on above: Performed By: #### L IPA, CMP ####[facility] R[address]axptzfqg[address] [place], [place] [address]Dr. Tadeo Smyth URon 03-27-2022 , QUAL Negative Normal NEGATIVE The [facility] Comment on above: Performed By: #### Matthew FRANCISCO, PREGU ####[facility] Zfmkiovlsr[address] [place], [place] [address]Dr. Tadeo Smyth PROF 14(COMP METB)on 022 Albumin [Mass/Vol] 3.6 g/dL Normal 3.4-5.0 The [facility] Comment on above: Performed By: #### L IPA, CMP ####[facility] Qiqkiopcoq1370 [place] [address]Dr. Tadeo Smyth Albumin/Globulin [Mass ratio] 1.1 {ratio} Normal [facility] Comment on above: Performed By: #### L IPA, CMP ####[facility] Dkjnlvjpzw8030 [place] [address]Dr. Tadeo Smyth ALP [Catalytic activity/Vol] 139 U/L Critically high 46-116 [facility] Comment on above: Performed By: #### L IPA, CMP ####[facility] Meqvkzyiyz3831 [place] [address]Dr. Tadeo Smyth ALT [Catalytic activity/Vol] 18 U/L Normal 14-59 [facility] Comment on above: Performed By: #### L IPA, CMP ####[facility] Awseefgmob4059 [place] [address]Dr. Tadeo Smyth Anion gap [Moles/Vol] 10.7 mmol/L Normal [facility] Comment on above: Performed By: #### L IPA, CMP ####[facility] Oswaqgovnp8229 [place] [address]Dr. Tadeo Smyth AST [Catalytic activity/Vol] 11 U/L Critically low 15-37 [facility] Comment on above: Performed By: #### L IPA, CMP ####[facility] Eyhkoxwvyp9343 [place] [address]Dr. Tadeo Smyth Bilirubin [Mass/Vol] 0.2 mg/dL Normal 0.2-1.0 [facility] Comment on above: Performed By: #### L IPA, CMP ####[facility] Tgawvjeicr7762 [place] [address]Dr. Tadeo Smyth Calcium [Mass/Vol] 9.0 mg/dL Normal 8.5-10.1 [facility] Comment on above: Performed By: #### L IPA, CMP ####[facility] Nhayiwcxqq6029 [place] [address]Dr. Tadeo Smyth Chloride [Moles/Vol] 106 mmol/L Normal 98-107 [facility] Comment on above: Performed By: #### L IPA, CMP ####[facility] Klzmvyrvrf9688 [place] [address]Dr. Tadeo Smyth CO2 [Moles/Vol] 26.9 mmol/L Normal 21.0-32.0 The [facility] Comment on above: Performed By: #### L IPA, CMP ####[facility] Idokhzufhp380[address] [place] [address]Dr. Tadeo Smyth Creatinine [Mass/Vol] 0.84 mg/dL Normal 0.55-1.02 The [facility] Comment on above: Performed By: #### L IPA, CMP ####[facility] [address]fwxypaw[address] [place], [place] [address]Dr. Tadeo Smyth EGFR-AF IRAQI >60 Normal >=60 The [facility] Comment on above: Performed By: #### L IPA, CMP ####[facility] [address]qopbtycl[address] [place], [place] [address]Dr. Tadeo Smyth EGFR-NON AF IRAQI >60 Normal >=60 The [facility] Comment on above: Performed By: #### L IPA, CMP ####[facility] Giveshshue[address] [place], [place] [address]Dr. Tadeo Smyth Globulin (S) [Mass/Vol] 3.4 g/dL Normal The [facility] Comment on above: Performed By: #### L IPA, CMP ####[facility] Lvzxqsozck[address] [place], [place] [address]Dr. Tadeo Smyth Glucose [Mass/Vol] 96 mg/dL Normal 74-106 [facility] Comment on above: Performed By: #### L IPA, CMP ####[facility] Zwdplouvlp[address] [place], [place] [address]Dr. Tadeo Smyth Potassium [Moles/Vol] 3.6 mmol/L Normal 3.5-5.1 [facility] Comment on above: Performed By: #### L IPA, CMP ####[facility] Xxcepgfukn[address] [place], [place] [address]Dr. Tadeo Smyth Protein [Mass/Vol] 7.0 g/dL Normal 6.4-8.2 The [facility] Comment on above: Performed By: #### L IPA, CMP ####[facility] Rwlejblcwo[address] [place], [place] [address]Dr. Margotnicole Haja Sodium [Moles/Vol] 140 mmol/L Normal 136-145 The [facility] Comment on above: Performed By: #### L IPA, CMP ####[facility] G[address]afkjjhy[address] [place], [place] [address]Dr. Margotnicole Haja Urea nitrogen [Mass/Vol] 23.0 mg/dL Critically high 7.0-18.0 The [facility] Comment on above: Performed By: #### L IPA, CMP ####[facility] Kinjqngion[address] [place], [place] [address]Dr. Tadeo Smyth Urea nitrogen/Creatinine [Mass ratio] 27.4 mg/mg Normal The [facility] Comment on above: Performed By: #### L IPA, CMP ####[facility] Vffvnpymnr[address] [place], [place] [address]Dr. Tadeo Smyth GROUP A STREP CULTUREon S. pyogenes Ag Ql (Unsp spec) Normal [facility] Comment on above: Performed By: #### G RASTCX, SSCRN ####[facility] Qbfedonukx[address] [place], [place] [address]Dr. Tadeo Haja AMYLASEon 02-02-2022 Amylase [Catalytic activity/Vol] 37 U/L Normal 25-115 [facility] Comment on above: Performed By: #### C MP, VIJI, LIPA ####[facility] Irytqyqxrg[address] [place], [place] [address]Dr. Tadeo Haja CBC AUTO DIFFon 02-02-2022 BASO # 0.0 103/ul Normal 0.0-0.1 The [facility] Comment on above: Performed By: #### C BC ####[facility] Vnsfbopufp[address] [place], [place] [address]Dr. Tadeo Smyth Basophils/100 WBC (Bld) 0.2 % Normal 0.2-2.0 The [facility] Comment on above: Performed By: #### C BC ####[facility] Ytgkircbaf5626 [place] [address]Dr. Tadeo Smyth EO # 0.0 103/ul Normal 0.0-0.7 [facility] Comment on above: Performed By: #### C BC ####[facility] Cdqqacltez[address] [place], [place] [address]Dr. Tadeo Smyth Eosinophils/100 WBC (Bld) 0.2 % Critically low 0.9-7.0 The [facility] Comment on above: Performed By: #### C BC ####[facility] Wvtfcxlzpi[address] [place], [place] [address]Dr. Tadeo Smyth Erythrocyte distribution width (RBC) [Ratio] 13.4 % Normal 11.0-15.0 The [facility] Comment on above: Performed By: #### C BC ####[facility] Faqiioegcc[address] [place], [place] [address]Dr. Tadeo Smyth Hematocrit (Bld) [Volume fraction] 36.8 % Normal 36.0-48.0 The [facility] Comment on above: Performed By: #### C BC ####[facility] Zcloabyatj[address] [place], [place] [address]Dr. Tadeo Smyth Hemoglobin (Bld) [Mass/Vol] 11.6 g/dL Critically low 12.0-16.0 The [facility] Comment on above: Performed By: #### C BC ####[facility] Duepwsdcgo[address] [place], [place] [address]Dr. Tadeo Smyth IG # 0.08 10e3/ul Critically high 0.00-0.03 [facility] Comment on above: Performed By: #### C BC ####[facility] Qodgikbxwf4386 [place] [address]Dr. Tadeo Smyth IG % 0.6 % Critically high 0.0-0.5 [facility] Comment on above: Performed By: #### C BC ####[facility] R[address]px[address]vkjcb[address] [place], [place] [address]Dr. Tadeo Smyth LYMPH # 0.9 103/ul Critically low 1.2-3.8 The [facility] Comment on above: Performed By: #### C BC ####[facility] Fykjneiaxd[address] [place] [id number]. Tadeo Smyth Lymphocytes/100 WBC (Bld) 6.9 % Critically low 20.5-60.0 The [facility] Comment on above: Performed By: #### C BC ####[facility] Zszxdyxrty0178 [place] [id number]. Tadeo Haja MANUAL DIFF REQ NO Normal [facility] Comment on above: Performed By: #### C BC ####[facility] Ysieoyrzan0934 [place] [address]Dr. Tadeo Haja MCH (RBC) [Entitic mass] 28.9 pg Normal 26.7-34.0 [facility] Comment on above: Performed By: #### C BC ####[facility] Syxfqghafs8385 [place] [address]Dr. Tadeo Haja MCHC (RBC) [Mass/Vol] 31.5 g/dL Normal 29.9-35.2 [facility] Comment on above: Performed By: #### C BC ####[facility] [address]eq[address]ulelbu[address] [place] [address]Dr. Tadeo Haja MCV (RBC) [Entitic vol] 91.8 fL Normal 81.0-99.0 [facility] Comment on above: Performed By: #### C BC ####[facility] Axrnimhhqt[address] [place], [place] [address]Dr. Margotnicole Haja MONO # 0.9 103/ul Critically high 0.3-0.8 [facility] Comment on above: Performed By: #### C BC ####[facility] Kilcvfanul6496 [place] [address]Dr. Tadeo Haja Monocytes/100 WBC (Bld) 6.9 % Normal 1.7-12.0 [facility] Comment on above: Performed By: #### C BC ####[facility] [address]ns[address]uezq[address] [place] [address]Dr. Tadeo Smyth NEUT # 11.6 103/ul Critically high 1.4-6.5 [facility] [facility] Comment on above: Performed By: #### C BC ####[facility] [address]sl[address] [place], [place] [address]Bk. Tadeo Smyth Neutrophils/100 WBC (Bld) 85.2 % Critically high 43.0-75.0 [facility] Comment on above: Performed By: #### C BC ####[facility] [address] [place], [place] [address]St. Tadeo Smyth Platelet mean volume (Bld) [Entitic vol] 8.9 fL Critically low 9.5-13.5 [facility] Comment on above: Performed By: #### C BC ####[facility] C[address] [place], [place] [address]Dm. Tadeo Smyth PLT 331 103/ul Normal 150-450 [facility] Comment on above: Performed By: #### C BC ####[facility] Juct[address]cll[address]40 [place], [place] [address]Iy. Tadeo Smyth RBC 4.01 106/ul Critically low 4.20-5.40 [facility] Comment on above: Performed By: #### C BC ####[facility] Djutvgwbex2264 [place], [place] [address]Ut. Tadeo Smyth WBC 13.7 103/ul Critically high 4.0-11.0 [facility] Comment on above: Performed By: #### C BC ####[facility] Tgswjzmjmy0465 [place], [place] [address]By. Tadeo Smyth [facility]05 SARS-CoV-2 (COVID-19) RNA CHEN+probe Ql (Unsp spec) Not detected Normal NOT DETECTED [facility] Comment on above: Result Comment: When [...] for this test is supported by the Pale[employer] Professor of Health and Human Service's declaration that [...] be used). Performed By: #### C VDTBH ####[facility] [address] [place] [address]Dr. Tadeo Smyth LIPASEon 02-02-2022 Lipase [Catalytic activity/Vol] 33.0 U/L Critically low 73.0-393.0 [facility] Comment on above: Performed By: #### C VIJI GARCIA LIPA ####[facility] [address] [place], [place] [address]Dr. Tadeo Smyth MONOon 02-02-2022 Monocytes (Bld) [#/Vol] Negative Normal NEGATIVE [facility] Comment on above: Performed By: #### M JESSICA ####[facility] Ed[address] [place], [place] [address]Dr. Tadeo Smyth PROF 14(COMP METB)on 022 Albumin [Mass/Vol] 3.1 g/dL Critically low 3.4-5.0 Th [facility] Comment on above: Performed By: #### C VIJI GARCIA, LIPA ####[facility] [address] [place] [address]Dr. Tadeo Smyth Albumin/Globulin [Mass ratio] 0.9 {ratio} Normal [facility] Comment on above: Performed By: #### C JOSE VIJI, LIPA ####[facility] [address] [place] [address]Dr. Tadeo Smyth ALP [Catalytic activity/Vol] 131 U/L Critically high 46-116 [facility] Comment on above: Performed By: #### C JOSE VIJI, LIPA ####[facility] [address] [place] [address]Dr. Tadeo Smyth ALT [Catalytic activity/Vol] 25 U/L Normal 14-59 [facility] Comment on above: Performed By: #### C VIJI GARCIA, LIPA ####[facility] [address] [place] [address]Dr. Tadeo Smyth Anion gap [Moles/Vol] 10.0 mmol/L Normal [facility] Comment on above: Performed By: #### C MP, VIJI, LIPA ####[facility] Qtnmrypson5834 [place] [address]Dr. Tadeo Smyth AST [Catalytic activity/Vol] 19 U/L Normal 15-37 [facility] Comment on above: Performed By: #### C MP, VIJI, LIPA ####[facility] [address] [place] [address]Dr. Tadeo Smyth Bilirubin [Mass/Vol] 0.6 mg/dL Normal 0.2-1.0 [facility] Comment on above: Performed By: #### C MP, VIJI, LIPA ####[facility] [address] [place], [place] [address]Dr. Tadeo Smyth Calcium [Mass/Vol] 8.2 mg/dL Critically low 8.5-10.1 [facility] Comment on above: Performed By: #### C MP, VIJI, LIPA ####[facility] [address] [place], [place] [address]Dr. Tadeo Smyth Chloride [Moles/Vol] 106 mmol/L Normal 98-107 [facility] [place] Comment on above: Performed By: #### C MP, VIJI, LIPA ####[facility] [address] [place], [place] [address]Dr. Tadeo Smyth CO2 [Moles/Vol] 25.5 mmol/L Normal 21.0-32.0 [facility] Comment on above: Performed By: #### C MP, VIJI, LIPA ####[facility] V[address] [place], [place] [address]Dr. Tadeo Smyth Creatinine [Mass/Vol] 0.78 mg/dL Normal 0.55-1.02 [facility] Comment on above: Performed By: #### C MP, VIJI, LIPA ####[facility] W[address] [place], [place] [address]Dr. Tadeo Smyth EGFR-AF IRAQI >60 Normal >=60 [facility] Comment on above: Performed By: #### C VIJI GARCIA, LIPA ####[facility] [address] [place] [address]Dr. Tadeo Smyth EGFR-NON AF IRAQI >60 Normal >=60 [facility] Comment on above: Performed By: #### C JOSE VIJI, LIPA ####[facility] [address] [place] [address]Dr. Tadeo Smyth Globulin (S) [Mass/Vol] 3.6 g/dL Normal [facility] Comment on above: Performed By: #### C VIJI GARCIA LIPA ####[facility] [address]ussx[address] [place] [address]Dr. Tadeo Smyth Glucose [Mass/Vol] 110 mg/dL Critically high 74-106 T [facility] Comment on above: Performed By: #### C VIJI GARCIA LIPA ####[facility] [address] [place] [address]Dr. Tadeo Smyth Potassium [Moles/Vol] 3.5 mmol/L Normal 3.5-5.1 [facility] Comment on above: Performed By: #### C VIJI GARCIA, LIPA ####[facility] [address] [place] [address]Dr. Tadeo Smyth Protein [Mass/Vol] 6.7 g/dL Normal 6.4-8.2 [facility] Comment on above: Performed By: #### C JOSE VIJI, LIPA ####[facility] [address] [place] [address]Dr. Tadeo Smyth Sodium [Moles/Vol] 138 mmol/L Normal 136-145 [facility] Comment on above: Performed By: #### C VIJI GARCIA, LIPA ####[facility] [address] [place] [address]Dr. Tadeo Smyth Urea nitrogen [Mass/Vol] 11.0 mg/dL Normal 7.0-18.0 [facility] Comment on above: Performed By: #### C JOSE VIJI, LIPA ####[facility] [address] [place], [place] [address]Wl. Tadeo Smyth Urea nitrogen/Creatinine [Mass ratio] 14.1 mg/mg Normal [facility] Comment on above: Performed By: #### C VIJI GARCIA, LIPA ####[facility] [address] [place], [place] [address]Sg. Tadeo Smyth STREPT SCREENon 02-02-2022 STREP SCREEN A Negative Normal NEGATIVE [facility] Comment on above: Performed By: #### G RASTCX, SSCRN ####[facility] [address] [place], [place] [address]Nc. Tadeo Smyth BASIC METABOLIC PANELon 08-05 Calcium [Mass/Vol] 8.4 mg/dL Low 8.6-10.3 [facility] Comment on above: Order Comment: No: D o not add to previous draw Performed By: #### 3 363, 14923 #### [facility] [address] [place] [address], [place] Chloride [Moles/Vol] 108 mmol/L High 98-107 [facility] Comment on above: Order Comment: No: D o not add to previous draw Performed By: #### 3 797, 17149 #### [facility] [address] [place] [address], [place] CO2 [Moles/Vol] 26 mmol/L Normal 21-31 [facility] Comment on above: Order Comment: No: D o not add to previous draw Performed By: #### 3 747, 23209 #### [facility] [address] [place] [address], [place] Creatinine [Mass/Vol] 0.79 mg/dL Normal 0.60-1.20 [facility] Comment on above: Order Comment: No: D o not add to previous draw Performed By: #### 3 838, 40221 #### [facility] [address] [place] [address], [place] GFR/1.73 sq M predicted among blacks MDRD (S/P/Bld) [Vol rate/Area] mL/min/{1.73_m2} Normal >60 [facility] Comment on above: Order Comment: No: D o not add to previous draw Performed By: #### 3 060, 83722 #### [facility] [address] [place] [address], [place] GFR/1.73 sq M predicted among non-blacks MDRD (S/P/Bld) [Vol rate/Area] mL/min/{1.73_m2} Normal >60 [facility] Comment on above: Order Comment: No: D o not add to previous draw Performed By: #### 3 898, 41445 #### [facility] [address] [place] [address], [place] Glucose [Mass/Vol] 98 mg/dL Normal 70-100 [facility] Comment on above: Order Comment: No: D o not add to previous draw Performed By: #### 3 912, 13424 #### [facility] [address] [place] [address], [place] Potassium [Moles/Vol] 3.5 mmol/L Normal 3.5-5.1 [facility] Comment on above: Order Comment: No: D o not add to previous draw Performed By: #### 3 156, 95250 #### [facility] [address] [place] [address], [place] Sodium [Moles/Vol] 139 mmol/L Normal 136-145 [facility] Comment on above: Order Comment: No: D o not add to previous draw Performed By: #### 3 783, 89025 #### [facility] [address] [place] [address], [place] Urea nitrogen [Mass/Vol] 11 mg/dL Normal 7-25 [facility] Comment on above: Order Comment: No: D o not add to previous draw Performed By: #### 3 557, 66489 #### [facility] [address] BLOOD STOOL GUAIACon 019 BLD STOOL GUAIAC Negative Normal NEGATIVE [facility] Comment on above: Order Comment: No: D o not add to previous draw Performed By: #### 3 1961, 62447 #### [facility] [address] [place] [address], [facility] MAGNESIUM BLOODon 08-16-2019 Magnesium [Mass/Vol] 2.0 mg/dL Normal 1.9-2.7 [facility] Comment on above: Order Comment: No: D o not add to previous draw Performed By: #### 3 4157, 39693 #### [facility] [address] [facility]. [address] *URINE CULTUREon 08-15-2019 Bacteria identified Cx Nom (U) Clinical Report: (D) Specimen/Source: URINE/MIDSTREAM Collected: 08/15/2019 20:40 Status: Final Last Updated: 08/17/2019 08:05 ISO (Final) Escherichia coli >100,000 Cfu/Ml ISOLATE: Escherichia coli RHONDA (mcg/ml) AMP./SULBAC (AMS) 16/8 Intermediate AMPICILLIN (AM) >16 Resistant AZTREONAM (AZM) <=1 Susceptible CEFAZOLIN (CZ) 2 Susceptible CEFTRIAXONE (SURGEON'S ASSISTANT) <=0.5 Susceptible CIPROFLOXACIN (CIP) >2 Resistant ESBL (-/+) (ESBL) Negative GENTAMICIN (GM) <=1 Susceptible NITROFURANTOIN (FT) <=16 Susceptible PIP/TAZO (TZP) 4/4 Susceptible TOBRAMYCIN (TOB) 1 Susceptible TRIMETH/SULFA (SXT) >2/38 Resistant Normal [facility] Comment on above: Performed By: #### 3 4456, 03228 #### [facility] [address] [place], [place] [id number] [place] [address] BASIC METABOLIC PANELon 08-05 Calcium [Mass/Vol] 8.8 mg/dL Normal 8.6-10.3 [facility] Comment on above: Order Comment: No: D o not add to previous draw Performed By: #### 0 0071, 91637, 38330 #### [facility] [address] [place] [address], [place] Chloride [Moles/Vol] 107 mmol/L Normal 98-107 [facility] Comment on above: Order Comment: No: D o not add to previous draw Performed By: #### 0 0071, 94207, 96723 #### [facility] [address] [place] [address], [place] CO2 [Moles/Vol] 27 mmol/L Normal 21-31 [facility] Comment on above: Order Comment: No: D o not add to previous draw Performed By: #### 0 0071, 95361, 31267 #### [facility] [address] [place] [address], [place] Creatinine [Mass/Vol] 0.99 mg/dL Normal 0.60-1.20 [facility] Comment on above: Order Comment: No: D o not add to previous draw Performed By: #### 0 0071, 47820, 30238 #### [facility] [address] [place] [address], [place] GFR/1.73 sq M predicted among blacks MDRD (S/P/Bld) [Vol rate/Area] mL/min/{1.73_m2} Normal >60 [facility] Comment on above: Order Comment: No: D o not add to previous draw Performed By: #### 0 0071, 45858, 14811 #### [facility] [address] [place] [address], [place] GFR/1.73 sq M predicted among non-blacks MDRD (S/P/Bld) [Vol rate/Area] 59 ml/min/1.73sq m Abnormal >60 [facility] Comment on above: Order Comment: No: D o not add to previous draw Performed By: #### 0 0071, 08715, 95916 #### [facility] [address] [place] [address], [place] Glucose [Mass/Vol] 100 mg/dL Normal 70-100 [facility] Comment on above: Order Comment: No: D o not add to previous draw Performed By: #### 0 0071, 91345, 81940 #### [facility] [address] [place] [address], [place] Potassium [Moles/Vol] 3.6 mmol/L Normal 3.5-5.1 [facility] Comment on above: Order Comment: No: D o not add to previous draw Performed By: #### 0 0071, 20682, 99329 #### [facility] [address] [place] [address], [place] Sodium [Moles/Vol] 140 mmol/L Normal 136-145 [facility] Comment on above: Order Comment: No: D o not add to previous draw Performed By: #### 0 0071, 56722, 58959 #### [facility] [address] [place] [address], [facility] Urea nitrogen [Mass/Vol] 9 mg/dL Normal 7-25 [facility] Comment on above: Order Comment: No: D o not add to previous draw Performed By: #### 0 0071, 01660, 14281 #### [facility] [address] [place] [address], [place] LACTATE BLOODon 08-15-2019 Lactate [Moles/Vol] 0.8 mmol/L Normal 0.5-2.2 [facility] Comment on above: Order Comment: Yes: Add to Previous draw if able Performed By: #### 1 0054 #### [facility] [address] [place] [address], [place] LMWH HEPARIN ASSAYon 019 LOW MOLECULAR WEIGHT HEPARIN 0.32 IU/mL Low 0.60-1.20 [facility] Comment on above: Order Comment: (draw [...] and LMWH. Performed By: #### 3 6901, 98852 #### [facility] [address] [facility]. [address] MAGNESIUM BLOODon 08-15-2019 Magnesium [Mass/Vol] 1.7 mg/dL Low 1.9-2.7 [facility] Comment on above: Order Comment: No: D o not add to previous draw Performed By: #### 0 0071, 70425, 29643 #### [facility] [address] [facility]. [address] PHOSPHORUS BLOODon 9 Phosphate [Mass/Vol] 4.1 mg/dL Normal 2.5-5.0 [facility] Comment on above: Order Comment: No: D o not add to previous draw Performed By: #### 0 0071, 26481, 82533 #### [facility] [address] [facility]. [address] UGI WITH SMALL BOWELon 08-15 UGI WITH SMALL BOWEL [facility] Department of Radiology [address] [place] [id number] Patient Name: CONSTANTINO CARDOSO : 1970 Sex: F Age: Race: White Pt. Location: [id number] Patient Status: O Ordered Date: 08/15/2019 10:45:00 [...] ischemia. Electronically signed by:Orestes Condon. Transcribed by: [email or web address], User Resident: Electronically Signed by: ORESTES CONDON @ 08/15/2019 04:13 PM Normal [facility] Comment on above: Order Comment: R/O O bstruction URINALYSIS REFLEXon 08-15-20 Appearance (U) SL CLOUDY Abnormal CLEAR [facility] Comment on above: Order Comment: No: D o not add to previous drawCriteria for reflexing a culture was met. Urine Culture and sensitivitywill be performed. Performed By: #### 3 8791, 94091 #### [facility] [address] [place] [address], [place] Bilirubin [Mass/Vol] Negative Normal NEGATIVE [facility] Comment on above: Order Comment: No: D o not add to previous drawCriteria for reflexing a culture was met. Urine Culture and sensitivitywill be performed. Performed By: #### 3 9241, 56469 #### [facility] [address] [place] [address], [place] BLOOD SMALL Abnormal NEGATIVE [facility] Comment on above: Order Comment: No: D o not add to previous drawCriteria for reflexing a culture was met. Urine Culture and sensitivitywill be performed. Performed By: #### 3 2491, 34247 #### [facility] [address] [place] [address], [place] Color (U) YELLOW Normal YELLOW [facility] Comment on above: Order Comment: No: D o not add to previous drawCriteria for reflexing a culture was met. Urine Culture and sensitivitywill be performed. Performed By: #### 3 0321, 48863 #### [facility] [address] [place] [address], [place] EPIS OCC Normal FEW,OCC,NON E SEEN [facility] Comment on above: Order Comment: No: D o not add to previous drawCriteria for reflexing a culture was met. Urine Culture and sensitivitywill be performed. Performed By: #### 3 1991, 13121 #### [facility] [address] [place] [address], [place] Glucose [Mass/Vol] Negative Normal NEGATIVE [facility] Comment on above: Order Comment: No: D o not add to previous drawCriteria for reflexing a culture was met. Urine Culture and sensitivitywill be performed. Performed By: #### 3 6781, 31394 #### [facility] [address] [place] [address], [facility] HYALINE CASTS 6-10 Abnormal NONE SEEN [facility] Comment on above: Order Comment: No: D o not add to previous drawCriteria for reflexing a culture was met. Urine Culture and sensitivitywill be performed. Performed By: #### 3 6901, 98517 #### [facility] [address] [place] [address], [facility] KETONE Negative Normal NEGATIVE [facility] Comment on above: Order Comment: No: D o not add to previous drawCriteria for reflexing a culture was met. Urine Culture and sensitivitywill be performed. Performed By: #### 3 0991, 03598 #### [facility] [address] [place] [address], [facility] LEUK JONN MODERATE Abnormal NEGATIVE [facility] Comment on above: Order Comment: No: D o not add to previous drawCriteria for reflexing a culture was met. Urine Culture and sensitivitywill be performed. Performed By: #### 3 8391, 04979 #### [facility] [address] [place] [address], [facility] MUCUS THREADS FEW Abnormal NONE SEEN [facility] Comment on above: Order Comment: No: D o not add to previous drawCriteria for reflexing a culture was met. Urine Culture and sensitivitywill be performed. Performed By: #### 3 6901, 24037 #### [facility] [address] [place] [address], [facility] Nitrite Ql (U) Negative Normal NEGATIVE [facility] Comment on above: Order Comment: No: D o not add to previous drawCriteria for reflexing a culture was met. Urine Culture and sensitivitywill be performed. Performed By: #### 3 690, 25394 #### [facility] [address] [facility] [place] [place] [address], [facility] pH (Bld) 5.0 Normal 5.0-8.0 [facility] Comment on above: Order Comment: No: D o not add to previous drawCriteria for reflexing a culture was met. Urine Culture and sensitivitywill be performed. Performed By: #### 3 690, 62801 #### [facility] [address] [facility] [place] [address], [facility] Protein (U) [Mass/Vol] Negative Normal NEGATIVE [facility] Comment on above: Order Comment: No: D o not add to previous drawCriteria for reflexing a culture was met. Urine Culture and sensitivitywill be performed. Performed By: #### 3 690, 39240 #### [facility] [address] [facility] [place] [address], [facility] RBC (U) [#/Vol] 6-10 Abnormal NONE SEEN [facility] Comment on above: Order Comment: No: D o not add to previous drawCriteria for reflexing a culture was met. Urine Culture and sensitivitywill be performed. Performed By: #### 3 690, 51927 #### [facility] [address] [facility]. [address] SPEC GRAV 1.025 High 1.015-1.020 [facility] Comment on above: Order Comment: No: D o not add to previous drawCriteria for reflexing a culture was met. Urine Culture and sensitivitywill be performed. Performed By: #### 3 690, 19662 #### [facility] [address] [facility] [place] [place] [address], [facility] WBC UA 51-100 Abnormal NONE SEEN [facility] Comment on above: Order Comment: No: D o not add to previous drawCriteria for reflexing a culture was met. Urine Culture and sensitivitywill be performed. Performed By: #### 3 6901, 57813 #### [facility] [address] CBC COMPLETE BLOOD COUNTon 10-15-2018 Erythrocyte distribution width (RBC) [Ratio] 12.7 % Normal 11.5-15.0 [facility] Comment on above: Order Comment: No: D o not add to previous draw Performed By: #### 5 0608 #### [facility] [address] [place] [address], [facility] Hematocrit (Bld) [Volume fraction] 31.2 % Low 36.0-45.0 [facility] Comment on above: Order Comment: No: D o not add to previous draw Performed By: #### 5 0608 #### [facility] [address] [place] [address], [facility] Hemoglobin (Bld) [Mass/Vol] 9.8 g/dL Low 12.0-15.0 [facility] Comment on above: Order Comment: No: D o not add to previous draw Performed By: #### 5 0608 #### [facility] [address] [place] [address], [facility] MCH (RBC) [Entitic mass] 29.1 pg Normal 27.0-33.0 [facility] Comment on above: Order Comment: No: D o not add to previous draw Performed By: #### 5 0608 #### [facility] [address] [place] [address], [facility] MCHC (RBC) [Mass/Vol] 31.4 g/dL Low 32.0-35.0 [facility] Comment on above: Order Comment: No: D o not add to previous draw Performed By: #### 5 0608 #### [facility] [address] [place] [id number], [facility] MCV (RBC) [Entitic vol] 92.6 fL Normal 82.0-98.0 [facility] Comment on above: Order Comment: No: D o not add to previous draw Performed By: #### 5 0608 #### [facility] [address] [place] [address], [facility] Nucleated RBC/100 WBC (Bld) [Ratio] 0 % Normal 0-0 [facility] Comment on above: Order Comment: No: D o not add to previous draw Performed By: #### 5 0608 #### [facility] [address] [place] [address], [facility] PLAT CNT 340 10*3/uL Normal 150-400 [facility] Comment on above: Order Comment: No: D o not add to previous draw Performed By: #### 5 0608 #### [facility] [address] [place] [address], [facility] RBC (Bld) [#/Vol] 3.37 10*6/uL Low 3.80-5.00 [facility] Comment on above: Order Comment: No: D o not add to previous draw Performed By: #### 5 0608 #### [facility] [address] [facility] [place] [address], [facility] WBC (Bld) [#/Vol] 6.04 10*3/uL Normal 4.00-10.60 [facility] Comment on above: Order Comment: No: D o not add to previous draw Performed By: #### 5 [id number] #### [facility] [address] [place] [address], [facility] PROTHROMBIN TIMEon 9 INR Coag (PPP) [Relative time] 1.09 {INR} Normal 0.91-1.16 [facility] Comment on above: Order Comment: [...] 1995;[id number]. Performed By: #### 5 6101 #### [address] PT Coag (PPP) [Time] 14.1 s Normal 12.3-14.8 [facility] Comment on above: Order Comment: No: D o not add to previous draw Result Comment: ALL RESULTS MUST BE INTERPRETED WITH RESPECT TO BLOOD DRAWING ARTIFACT OR DILUTION ERROR OF ANTICOAGULANT AT THE TIME OF SAMPLING. Performed By: #### 5 6101 #### [address] 08-14-2019 [facility] Department of Radiology [address] [place] [id number] Patient Name: CONSTANTINO CARDOSO : 1970 Sex: F Age: Race: White Pt. Location: [id number] Patient Status: O Ordered Date: 08/13/2019 8:30:00 [...] cholecystectomy. Electronically signed by:Orestes Condon. Transcribed by: [email or web address], User Resident: Electronically Signed by: ORESTES CONDON @ 08/14/2019 02:09 PM Normal [facility] Comment on above: Order Comment: R/O S tones BASIC METABOLIC PANELon 12-0 Calcium [Mass/Vol] 9.4 mg/dL Normal 8.6-10.3 [facility] Comment on above: Order Comment: No: D o not add to previous draw Performed By: #### 3 6311, [id number] #### [facility] [address] [place] [address], [place] Chloride [Moles/Vol] 105 mmol/L Normal 98-107 [facility] Comment on above: Order Comment: No: D o not add to previous draw Performed By: #### 3 6901, [id number] #### [facility] [address] [place] [address], [place] CO2 [Moles/Vol] 26 mmol/L Normal 21-31 [facility] Comment on above: Order Comment: No: D o not add to previous draw Performed By: #### 3 599, 22556 #### [facility] [address] [place] [address], [place] Creatinine [Mass/Vol] 1.03 mg/dL Normal 0.60-1.20 [facility] Comment on above: Order Comment: No: D o not add to previous draw Performed By: #### 3 836, 13872 #### [facility] [address] [place] [address], [place] GFR/1.73 sq M predicted among blacks MDRD (S/P/Bld) [Vol rate/Area] mL/min/{1.73_m2} Normal >60 [facility] Comment on above: Order Comment: No: D o not add to previous draw Performed By: #### 3 128, [id number] #### [facility] [address] [place] [address], [place] GFR/1.73 sq M predicted among non-blacks MDRD (S/P/Bld) [Vol rate/Area] 57 ml/min/1.73sq m Abnormal >60 [facility] Comment on above: Order Comment: No: D o not add to previous draw Performed By: #### 3 806, 70095 #### [facility] [address] [place] [address], [place] Glucose [Mass/Vol] 96 mg/dL Normal 70-100 [facility] Comment on above: Order Comment: No: D o not add to previous draw Performed By: #### 3 649, 69264 #### [facility] [address] [place] [address], [place] Potassium [Moles/Vol] 4.1 mmol/L Normal 3.5-5.1 [facility] Comment on above: Order Comment: No: D o not add to previous draw Performed By: #### 3 093, 81244 #### [facility] [address] [place] [address], [facility] Sodium [Moles/Vol] 138 mmol/L Normal 136-145 [facility] Comment on above: Order Comment: No: D o not add to previous draw Performed By: #### 3 6901, [id number] #### [facility] [address] [facility] [place] [address], [facility] Urea nitrogen [Mass/Vol] 16 mg/dL Normal 7-25 [facility] Comment on above: Order Comment: No: D o not add to previous draw Performed By: #### 3 6901, [id number] #### [facility] [address] [facility] [place] [address], [facility] CBC W/DIFFon 08-13-2019 ABS BASOPHILS 0.0 10*3/uL Normal 0.0-0.2 [facility] Comment on above: Order Comment: No: D o not add to previous draw Performed By: #### 5 0103 #### [facility] [address] [facility] [place] [address], [facility] ABS IMM GRANS 0.0 10*3/uL Normal 0.0-0.2 [facility] Comment on above: Order Comment: No: D o not add to previous draw Performed By: #### 5 0103 #### [facility] [address] [facility] [place] [address], [facility] ABS NEUTROPHILS 4.0 10*3/uL Normal 1.6-7.6 [facility] Comment on above: Order Comment: No: D o not add to previous draw Performed By: #### 5 0103 #### [facility] [address] [facility] [place] [address], [facility] Basophils/100 WBC (Bld) 0.5 % Normal 0.0-1.0 [facility] Comment on above: Order Comment: No: D o not add to previous draw Performed By: #### 5 0103 #### [facility] [address] [place] [address], [facility] Eosinophils (Bld) [#/Vol] 0.2 10*3/uL Normal 0.0-0.5 [facility] Comment on above: Order Comment: No: D o not add to previous draw Performed By: #### 5 0103 #### [facility] [address] [place] [address], [facility] Eosinophils/100 WBC (Bld) 3.3 % Normal 0.0-6.0 [facility] Comment on above: Order Comment: No: D o not add to previous draw Performed By: #### 5 0103 #### [facility] [address] Erythrocyte distribution width (RBC) [Ratio] 12.7 % Normal 11.5-15.0 [facility] Comment on above: Order Comment: No: D o not add to previous draw Performed By: #### 5 0103 #### [facility] [address] Hematocrit (Bld) [Volume fraction] 33.4 % Low 36.0-45.0 [facility] Comment on above: Order Comment: No: D o not add to previous draw Performed By: #### 5 0103 #### [facility] [address] Hemoglobin (Bld) [Mass/Vol] 10.5 g/dL Low 12.0-15.0 [facility] Comment on above: Order Comment: No: D o not add to previous draw Performed By: #### 5 0103 #### [facility] [address] [place] [address], [facility] IMMATURE GRANS 0.2 % Normal 0.0-1.0 [facility] Comment on above: Order Comment: No: D o not add to previous draw Performed By: #### 5 0103 #### [facility] [address] [place] [address], [facility] Lymphocytes (Bld) [#/Vol] 1.8 10*3/uL Normal 1.2-4.0 [facility] Comment on above: Order Comment: No: D o not add to previous draw Performed By: #### 5 0103 #### [facility] [address] [place] [address], [facility] Lymphocytes/100 WBC (Bld) 28.2 % Normal 20.0-45.0 [facility] Comment on above: Order Comment: No: D o not add to previous draw Performed By: #### 5 0103 #### [facility] [address] [place] [address], [facility] MCH (RBC) [Entitic mass] 28.9 pg Normal 27.0-33.0 [facility] Comment on above: Order Comment: No: D o not add to previous draw Performed By: #### 5 0103 #### [facility] [address] [place] [id number], [facility] MCHC (RBC) [Mass/Vol] 31.4 g/dL Low 32.0-35.0 [facility] Comment on above: Order Comment: No: D o not add to previous draw Performed By: #### 5 0103 #### [facility] [address] [place] [address], [facility] MCV (RBC) [Entitic vol] 92.0 fL Normal 82.0-98.0 [facility] Comment on above: Order Comment: No: D o not add to previous draw Performed By: #### 5 0103 #### [facility] [address] [place] [id number], [facility] Monocytes (Bld) [#/Vol] 0.4 10*3/uL Normal 0.1-1.0 [facility] Comment on above: Order Comment: No: D o not add to previous draw Performed By: #### 5 3 #### [facility] [address] [place] [id number], [place] MONOS 6.2 % Normal 5.0-12.0 [facility] Comment on above: Order Comment: No: D o not add to previous draw Performed By: #### 5 0103 #### [facility] [address] [place] [address], [facility] Neutrophils/100 WBC (Bld) 61.6 % Normal 40.0-72.0 [facility] Comment on above: Order Comment: No: D o not add to previous draw Performed By: #### 5 0103 #### [facility] [address] [place] [address], [facility] Nucleated RBC/100 WBC (Bld) [Ratio] 0 % Normal 0-0 [facility] Comment on above: Order Comment: No: D o not add to previous draw Performed By: #### 5 0103 #### [facility] [address] [place] [address], [facility] PLAT CNT 382 10*3/uL Normal 150-400 [facility] Comment on above: Order Comment: No: D o not add to previous draw Performed By: #### 5 0103 #### [facility] [address] [facility] [place] [place] [address], [facility] RBC (Bld) [#/Vol] 3.63 10*6/uL Low 3.80-5.00 [facility] Comment on above: Order Comment: No: D o not add to previous draw Performed By: #### 5 0103 #### [facility] [address] [place] [address], [facility] WBC (Bld) [#/Vol] 6.45 10*3/uL Normal 4.00-10.60 [facility] Comment on above: Order Comment: No: D o not add to previous draw Performed By: #### 5 0103 #### [facility] [address] [place] [address], [facility] LIPASE BLOODon 08-13-2019 Lipase [Catalytic activity/Vol] 13 Units/L Normal 11-82 [facility] Comment on above: Performed By: #### 3 0171 [id number] #### [facility] Valentine SLAUGHTER. [address] Vital Signs Date Time Vital Sign Value Performing Clinician Facility 06-20-2024 11:08-0400 Body height 170.2 cm Kulwant Hodge MD Work Phone: [facility] 06-20-2024 11:08-0400 Body mass index (BMI) [Ratio] 28.98 kg/m2 Kulwant Hodge MD Work Phone: [facility] 06-20-2024 11:08-0400 Body weight 83.92 kg Kulwant Hodge MD Work Phone: [facility] 06-20-2024 11:08-0400 Diastolic blood pressure 92 mm[Hg] Kulwant Hodge MD Work Phone: [facility] 06-20-2024 11:08-0400 Heart rate 62 /min Kulwant Hodge MD Work Phone: [facility] 06-20-2024 11:08-0400 Respiratory rate 16 /min Kulwant Hodge MD Work Phone: [facility] 06-20-2024 11:08-0400 Systolic blood pressure 140 mm[Hg] Kulwant Hodge MD Work Phone: [facility] 05-11-2024 10:50-0400 Diastolic blood pressure 80 mm[Hg] ANIMAL HUSBANDRY TECHNICIAN-C Judi Youssef Work Phone: [facility] 05-11-2024 10:50-0400 Heart rate 67 /min ANIMAL HUSBANDRY TECHNICIAN-Paula Youssef Work Phone: [facility] 05-11-2024 10:50-0400 Respiratory rate 16 /min ANIMAL HUSBANDRY TECHNICIAN-Paula Youssef Work Phone: [facility] 05-11-2024 10:50-0400 SaO2% (BldA) [Mass fraction] 100 % ANIMAL HUSBANDRY TECHNICIAN-C Judi Youssef Work Phone: [facility] 05-11-2024 10:50-0400 Systolic blood pressure 130 mm[Hg] ANIMAL HUSBANDRY TECHNICIAN-C Judi Youssef Work Phone: [facility] 05-11-2024 08:23-0400 Body height 170.18 cm ANIMAL HUSBANDRY TECHNICIAN-C Judi Youssef Work Phone: [facility] 05-11-2024 08:23-0400 Body weight 81.64 kg ANIMAL HUSBANDRY TECHNICIAN-C Judi Youssef Work Phone: [facility] 04-26-2024 08:27-0400 Body height 170.18 cm [facility] 04-26-2024 08:27-0400 Body mass index (BMI) [Ratio] 28.5 kg/m2 [facility] 04-26-2024 08:27-0400 Body weight 82.55 kg [facility] 04-26-2024 08:27-0400 Diastolic blood pressure 82 mm[Hg] [facility] 04-26-2024 08:27-0400 Heart rate 59 /min [facility] 04-26-2024 08:27-0400 Systolic blood pressure 132 mm[Hg] [facility] 02-16-2024 09:03-0400 Blood Pressure Location Yolanda Orzech [facility] 02-16-2024 09:03-0400 Body temperature 97.7 [degF] Yolanda Orzech [facility] 02-16-2024 09:03-0400 Diastolic blood pressure 84 mm[Hg] Yolanda Orzech [facility] 02-16-2024 09:03-0400 Heart rate 78 /min Yolanda Orzech [facility] 02-16-2024 09:03-0400 Systolic blood pressure 128 mm[Hg] Yolanda Orzech [facility] 07-22-2023 13:19-0500 Body height 170.[address] Work Phone: [facility] 07-22-2023 13:19-0500 Body weight 83.[address] Work Phone: [facility] 07-14-2023 11:40-0500 Diastolic blood pressure 95 mm[Hg] Marques Bradley MD Work Phone: [facility] 07-14-2023 11:40-0500 Heart rate 56 /min Marques Bradley MD Work Phone: [facility] 07-14-2023 11:40-0500 Respiratory rate 16 /min Marques Bradley MD Work Phone: [facility] 07-14-2023 11:40-0500 SaO2% (BldA) [Mass fraction] 97 % Marques Bradley MD Work Phone: [facility] 07-14-2023 11:40-0500 Systolic blood pressure 158 mm[Hg] Marques Bradley MD Work Phone: [facility] 07-14-2023 11:10-0500 Body temperature 97.2 [degF] Marques Bradley MD Work Phone: [facility] 07-14-2023 08:34-0500 Body height 170.2 cm Marques Bradley MD Work Phone: [facility] 07-14-2023 08:34-0500 Body weight 88 kg Marques Bradley MD Work Phone: [facility] 04-21-2023 09:30-0400 Body height 170.18 cm Renny Omalley Other [employer] Other 04-21-2023 09:30-0400 Body mass index (BMI) [Ratio] 31.21 kg/m2 Renny Omalley Other [employer] Other 04-21-2023 09:30-0400 Body weight 90.4 kg Renny Omalley Other [facility] [employer] Other 04-21-2023 09:30-0400 Diastolic blood pressure 78 mm[Hg] Renny Omalley Other [facility] Other 04-21-2023 09:30-0400 Systolic blood pressure 130 mm[Hg] Renny Omalley Other [facility] [employer] Other 03-23-2023 07:33-0400 Diastolic blood pressure 80 mm[Hg] ANIMAL HUSBANDRY TECHNICIAN-C Judi Ugaldemer Work Phone: [facility] 03-23-2023 07:33-0400 Heart rate 81 /min ANIMAL HUSBANDRY TECHNICIAN-C Judi Mikael Work Phone: [facility] 03-23-2023 07:33-0400 Respiratory rate 14 /min ANIMAL HUSBANDRY TECHNICIAN-C Judi Mikael Work Phone: [facility] 03-23-2023 07:33-0400 SaO2% (BldA) [Mass fraction] 95 % ANIMAL HUSBANDRY TECHNICIAN-C Judi Mikael Work Phone: [facility] 03-23-2023 07:33-0400 Systolic blood pressure 171 mm[Hg] ANIMAL HUSBANDRY TECHNICIAN-C Judi Mikael Work Phone: [facility] 03-23-2023 06:20-0400 Body height 170.18 cm ANIMAL HUSBANDRY TECHNICIAN-C Judi Mikael Work Phone: [facility] 03-23-2023 06:20-0400 Body temperature 97.4 [degF] ANIMAL HUSBANDRY TECHNICIAN-C Judi Mikael Work Phone: [facility] 03-23-2023 06:20-0400 Body weight 90 kg ANIMAL HUSBANDRY TECHNICIAN-C Judi Mikael Work Phone: [facility] 02-19-2023 00:53-0400 Body temperature 96.98 [degF] Khrisinn Dokken [facility] 02-19-2023 00:53-0400 Diastolic blood pressure 99 mm[Hg] Franklinylinn Dokken [facility] 02-19-2023 00:53-0400 Heart rate 75 /min Franklinylinn Dokken [facility] 02-19-2023 00:53-0400 Respiratory rate 16 /min Franklinylinn Dokken [facility] 02-19-2023 00:53-0400 SaO2% (BldA) [Mass fraction] 98 % Khrisinn Dokken [facility] 02-19-2023 00:53-0400 Systolic blood pressure 153 mm[Hg] Khrisinn Dokken [facility] 02-15-2023 10:33-0400 Diastolic blood pressure 89 mm[Hg] ANIMAL HUSBANDRY TECHNICIAN-C Judi Mikael Work Phone: [facility] 02-15-2023 10:33-0400 SaO2% (BldA) [Mass fraction] 100 % ANIMAL HUSBANDRY TECHNICIAN-C Judi Mikael Work Phone: [facility] 02-15-2023 10:33-0400 Systolic blood pressure 149 mm[Hg] ANIMAL HUSBANDRY TECHNICIAN-C Judi Mikael Work Phone: [facility] 02-15-2023 10:00-0400 Heart rate 83 /min ANIMAL HUSBANDRY TECHNICIAN-C Judi Mikael Work Phone: [facility] 02-15-2023 10:00-0400 Respiratory rate 16 /min ANIMAL HUSBANDRY TECHNICIAN-C Judi Mikael Work Phone: [facility] 02-15-2023 08:06-0400 Body height 170.18 cm ANIMAL HUSBANDRY TECHNICIAN-C Judi Mikael Work Phone: [facility] 02-15-2023 08:06-0400 Body temperature 97.6 [degF] ANIMAL HUSBANDRY TECHNICIAN-C Judi Mikael Work Phone: [facility] 02-15-2023 08:06-0400 Body weight 89.2 kg ANIMAL HUSBANDRY TECHNICIAN-C Judi Mikael Work Phone: [facility] 10-26-2022 08:03-0500 Diastolic blood pressure 87 mm[Hg] ANIMAL HUSBANDRY TECHNICIAN-C Judi Mikael Work Phone: [facility] 10-26-2022 08:03-0500 Heart rate 70 /min ANIMAL HUSBANDRY TECHNICIAN-C Judi Mikael Work Phone: [facility] 10-26-2022 08:03-0500 Respiratory rate 18 /min ANIMAL HUSBANDRY TECHNICIAN-C Judi Mikael Work Phone: [facility] 10-26-2022 08:03-0500 SaO2% (BldA) [Mass fraction] 98 % ANIMAL HUSBANDRY TECHNICIAN-C Judi Mikael Work Phone: [facility] 10-26-2022 08:03-0500 Systolic blood pressure 161 mm[Hg] ANIMAL HUSBANDRY TECHNICIAN-C Judi Mikael Work Phone: [facility] 10-26-2022 06:17-0500 Body height 170.18 cm ANIMAL HUSBANDRY TECHNICIAN-C Judi Mikael Work Phone: [facility] 10-26-2022 06:17-0500 Body temperature 97.2 [degF] ANIMAL HUSBANDRY TECHNICIAN-C Judi Mikael Work Phone: [facility] 10-26-2022 06:17-0500 Body weight 88.9 kg ANIMAL HUSBANDRY TECHNICIAN-C Judi Mikael Work Phone: [facility] 07-22-2022 14:34-0500 Diastolic blood pressure 83 mm[Hg] Ospina SALAM [facility] 07-22-2022 14:34-0500 Mean blood pressure 101 mm[Hg] Ospina SALAM [facility] 07-22-2022 14:34-0500 Systolic blood pressure 136 mm[Hg] Ospina SALAM [facility] 07-22-2022 14:30-0500 Blood Pressure Location Ospina SALAM [facility] 07-22-2022 14:30-0500 Diastolic blood pressure 89 mm[Hg] Ospina SALAM [facility] 07-22-2022 14:30-0500 Heart rate 62 /min Ospina SALAM [facility] 07-22-2022 14:30-0500 Respiratory rate 16 /min Ospina SALAM [facility] 07-22-2022 14:30-0500 SaO2% (BldA) [Mass fraction] 98 % Ospina SALAM [facility] 07-22-2022 14:30-0500 Systolic blood pressure 141 mm[Hg] Ospina SALAM [facility] 04-14-2022 14:50-0400 Blood Pressure Location Moniquejuan luis ReddyJimmy [facility] 04-14-2022 14:50-0400 Body temperature 97.16 [degF] Moniquejuan luis ReddyJimmy [facility] 04-14-2022 14:50-0400 Diastolic blood pressure 86 mm[Hg] Monique Jimmy [facility] 04-14-2022 14:50-0400 Heart rate 72 /min Moniquejuan luis ReddyJimmy [facility] 04-14-2022 14:50-0400 SaO2% (BldA) [Mass fraction] 97 % Monique Marquez [facility] 04-14-2022 14:50-0400 Systolic blood pressure 131 mm[Hg] Monique Marquez [facility] 01-28-2022 13:36-0400 Blood Pressure Location Monique Marquez [facility] 01-28-2022 13:36-0400 Body temperature 97.52 [degF] Monique Marquez [facility] 01-28-2022 13:36-0400 Diastolic blood pressure 85 mm[Hg] Monique Marquez [facility] 01-28-2022 13:36-0400 Heart rate 73 /min Monique Marquez [facility] 01-28-2022 13:36-0400 SaO2% (BldA) [Mass fraction] 96 % Monique Marquez [facility] 01-28-2022 13:36-0400 Systolic blood pressure 122 mm[Hg] Monique Castañedaz [facility] 01-11-2022 10:15-0400 Blood Pressure Location Ospina LORNAGUSTAVO [facility] 01-11-2022 10:15-0400 Diastolic blood pressure 106 mm[Hg] Ospina SALAM [facility] 01-11-2022 10:15-0400 Heart rate 70 /min Ospina SALAM [facility] 01-11-2022 10:15-0400 Respiratory rate 28 /min Ospina SALAM [facility] 01-11-2022 10:15-0400 SaO2% (BldA) [Mass fraction] 99 % Ospina SALAM [facility] 01-11-2022 10:15-0400 Systolic blood pressure 137 mm[Hg] Ospina SALAM [facility] 01-11-2022 10:05-0400 Blood Pressure Location Ospina SALAM [facility] 01-11-2022 10:05-0400 Diastolic blood pressure 74 mm[Hg] Ospina SALAM [facility] 01-11-2022 10:05-0400 Heart rate 67 /min Ospina SALAM [facility] 01-11-2022 10:05-0400 Respiratory rate 14 /min Ospina SALAM [facility] 01-11-2022 10:05-0400 SaO2% (BldA) [Mass fraction] 97 % Ospina SALAM [facility] 01-11-2022 10:05-0400 Systolic blood pressure 128 mm[Hg] Ospina SALAM [facility] 01-11-2022 10:00-0400 Blood Pressure Location Ospina SALAM [facility] 01-11-2022 10:00-0400 Diastolic blood pressure 79 mm[Hg] Ospina SALAM [facility] 01-11-2022 10:00-0400 Heart rate 66 /min Ospina SALAM [facility] 01-11-2022 10:00-0400 Respiratory rate 16 /min Ospina SALAM [facility] 01-11-2022 10:00-0400 SaO2% (BldA) [Mass fraction] 98 % Ospina SALAM [facility] 01-11-2022 10:00-0400 Systolic blood pressure 134 mm[Hg] Ospina SALAM [facility] 01-11-2022 09:50-0400 Body temperature 97.52 [degF] Ospina SALAM [facility] 01-11-2022 09:45-0400 Respiratory rate 15 /min Opsina SALAM [facility] 01-11-2022 09:18-0400 Body temperature 97.34 [degF] Ospina SALAM [facility] 01-11-2022 09:18-0400 Respiratory rate 20 /min Ospina SALAM [facility] Encounters Encounter Date Encounter Type Care Provider Facility Start: 06-20-2024 End: 06-20-2024 Bamboo flowsheet Kulwant Hodge MD Work Phone: [facility] Start: 06-20-2024 End: 06-20-2024 Bamboo flowsheet Kulwant Hodge MD Work Phone: [facility] Start: 06-20-2024 End: 06-20-2024 ambulatory KULWANT HODGE Not Available Start: 06-20-2024 End: 06-20-2024 Office outpatient new 45 minutes Kulwant Hodge MD Work Phone: [facility] ENDO[facility] Comment on above: Hypoglycemia (Primar y Dx); Encounter for dietary consultation Start: 06-19-2024 End: 06-19-2024 Patient encounter procedure ANIMAL HUSBANDRY TECHNICIAN-C Judi Youssef Work Phone: [facility]-XRay [facility] Work Phone: Start: 06-19-2024 End: 06-19-2024 ambulatory Judi Youssef Facility:[facility] Start: 06-07-2024 End: 06-07-2024 ambulatory Yolanda X Orzech Facility[facility] Start: 06-07-2024 End: 06-07-2024 Patient encounter procedure Yolanda X Orzech [facility] Urology [facility] Start: 05-14-2024 End: 05-14-2024 ambulatory [facility] Start: 05-11-2024 Non-patient / Non-visit ANIMAL HUSBANDRY TECHNICIAN-C Cesia Youssef Work Phone: [facility] Work Phone: Start: 05-11-2024 End: 05-11-2024 Admission to same day surgery center ANIMAL HUSBANDRY TECHNICIAN-C Judi Youssef Work Phone: [facility] Work Phone: Start: 05-11-2024 End: 05-11-2024 ambulatory ANIMAL HUSBANDRY TECHNICIAN-C Judi Youssef Work Phone: [facility] Work Phone: Start: 04-26-2024 End: 04-26-2024 ambulatory [facility] Work Phone: Start: 04-26-2024 End: 04-26-2024 Patient encounter procedure [facility] Work Phone: Start: 04-13-2024 Non-patient / Non-visit ANIMAL HUSBANDRY TECHNICIAN-C Cesia Youssef Work Phone: [facility] Work Phone: Start: 03-19-2024 End: 03-19-2024 ambulatory [facility] Start: 02-16-2024 End: 02-16-2024 ambulatory Yolanda X Orzech Facility[facility] Start: 02-16-2024 End: 02-16-2024 Lab Drop off Yolanda X Orzech [facility] Start: 02-16-2024 End: 02-16-2024 ambulatory Yolanda X Orzech Facility:[facility] Start: 02-16-2024 End: 02-16-2024 Patient encounter procedure Yolanda X Orzech [facility] Start: 02-15-2024 End: 02-15-2024 ambulatory [facility] Start: 12-01-2023 ambulatory [facility] Start: 08-25-2023 End: 08-25-2023 ambulatory [facility] Facility:[facility] Start: 07-29-2023 Orders Only Evelyn Black RN Gen eral Surgery Comment on above: Gastroparesis (Prima ry Dx) Start: 07-22-2023 End: 07-22-2023 ambulatory MARQUES BRADLEY Facility:[facility] Start: 07-22-2023 Telephone encounter Evelyn Black RN General Surgery Start: 07-22-2023 End: 07-22-2023 Nutrition therapy Melissa Montalvo RD Work Phone: General Surgery Comment on above: Gastroparesis (Prima ry Dx); Malnutrition of moderate degree (HCC); Gastro-esophageal reflux disease without esophagitis; Overweight (BMI 25.0-29.9); Dietary counseling and surveillance Start: 07-22-2023 End: 07-22-2023 Telemedicine consultation with patient Melissa Montalvo RD Work Phone: [facility] Start: 07-14-2023 End: 07-14-2023 ambulatory MARQUES BRADLEY Facility:[facility] Start: 07-14-2023 End: 07-14-2023 Subsequent hospital visit by physician Marques Bradley MD Work Phone: Gastroenterology Comment on above: Dysphagia, unspecifi ed type [R13.10] Start: 07-13-2023 End: 07-13-2023 ambulatory MARQUES BRADLEY Facility:[facility] Start: 06-06-2023 End: 06-06-2023 ambulatory Samuel Estrella Facility[facility] Start: 05-27-2023 Telephone encounter Evelyn Black RN General Surgery Comment on above: Results Start: 05-26-2023 End: 05-26-2023 ambulatory MARQUES BRADLEY Facility:[facility] Start: 05-25-2023 End: 05-25-2023 ambulatory JOEL PANCHAL [facility] Facility:[facility] Start: 05-25-2023 End: 05-25-2023 Nursing evaluation of patient and report Nurse Gi Lab 2 Work Phone: Gastroenterology Comment on above: Nausea Start: 05-16-2023 Orders Only Evelyn Black RN Gen eral Surgery Comment on above: Nausea (Primary Dx); Dysphagia, unspecified type Start: 05-06-2023 End: 05-07-2023 ambulatory MARQUES BRADLEY Facility:[facility] Start: 05-02-2023 Telephone encounter Evelyn Black RN General Surgery Start: 04-26-2023 Telephone encounter Evelyn Black RN General Surgery Start: 04-21-2023 End: 04-21-2023 ambulatory Renny Omalley Other [place] Other Start: 04-21-2023 Office outpatient vi sit 15 minutes Renny TOUSSAINT Gastroenterology Start: 04-18-2023 Telephone encounter Evelyn Black RN General Surgery Comment on above: 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 - O ther Start: 04-07-2023 Telephone encounter Guillermo Martinez DO Work Phone: Gastroenterology Comment on above: Appointment Start: 04-05-2023 End: 04-05-2023 ambulatory Imad Asaad Other [place] Other Start: 04-05-2023 Telephone encounter Imad Asaad [facility] Start: 03-29-2023 ambulatory Facility:[facility] Start: 03-26-2023 ambulatory Facility:[id number] Start: 03-26-2023 ambulatory Facility:9 [id number] Start: 03-24-2023 End: 03-24-2023 ambulatory Imad Asaad Other [place] Other Start: 03-24-2023 Telephone encounter Imad Asaad [facility] Start: 03-23-2023 End: 03-23-2023 Emergency department patient visit ANIMAL HUSBANDRY TECHNICIAN-Paula Youssef Work Phone: [facility]-Emergency Room Work Phone: Start: 03-22-2023 End: 03-22-2023 ambulatory Imad Asaad Other [place] Other Start: 03-22-2023 Telephone encounter Imad Asaad [facility] Start: 03-09-2023 End: 03-09-2023 ambulatory Imad Asaad Other [place] Other Start: 03-09-2023 Telephone encounter Imad Asaad [facility] Start: 03-01-2023 End: 03-01-2023 ambulatory Imad Asaad Other [place] Other Start: 03-01-2023 Telephone encounter Imad Asaad [facility] Start: 02-19-2023 End: 02-19-2023 Emergency department patient visit Zabrina Patton [facility] Start: 02-15-2023 End: 02-15-2023 Emergency department patient visit LINDA-Paula Youssef Work Phone: [facility]-Emergency [facility] Work Phone: Start: 11-30-2022 End: 12-01-2022 ambulatory JUDI YOUSSEF Facility:[facility] Start: 11-27-2022 End: 11-28-2022 ambulatory JUDI YOUSSEF Facility:[facility] Start: 11-26-2022 End: 11-26-2022 ambulatory Imad Asaad Other [place] Other Start: 11-26-2022 Telephone encounter Imad Asaad [facility] Start: 11-04-2022 End: 11-04-2022 Admission to same day surgery center ANIMAL HUSBANDRY TECHNICIAN-C Judi Youssef Work Phone: [facility]-CT Scan [facility] [place] Work Phone: Start: 11-04-2022 End: 11-04-2022 ambulatory ANIMAL HUSBANDRY TECHNICIAN-C Judi Youssef Work Phone: [facility] Work Phone: Start: 11-01-2022 End: 11-02-2022 ambulatory JUDI YOUSSEF Facility:[facility] Start: 10-26-2022 End: 10-26-2022 Emergency department patient visit ANIMAL HUSBANDRY TECHNICIAN-C Judi Youssef Work Phone: [facility]-Emergency Room Work Phone: Start: 09-21-2022 End: 09-21-2022 ambulatory JUDI YOUSSEF Facility:[facility] Start: 09-18-2022 End: 09-18-2022 ambulatory BALTAZAR GEORGES . Facility:[facility] Start: 09-14-2022 End: 09-14-2022 ambulatory EUN WILSON . Facility:[facility] Start: 09-07-2022 End: 09-07-2022 ambulatory Imad Asaad Other [place] Other Start: 09-07-2022 Telephone encounter Imad Asaad [facility] [employer] Operator Start: 09-06-2022 End: 09-07-2022 ambulatory JUDI MIKAEL Facility:[facility] Start: 08-20-2022 End: 08-20-2022 ambulatory BALTAZAR GEORGES . Facility:[facility] Start: 08-17-2022 End: 08-18-2022 ambulatory JUDI YOUSSEF Facility:[facility] Start: 08-11-2022 End: 08-12-2022 ambulatory JUDI YOUSSEF Facility:[facility] Start: 08-08-2022 End: 08-08-2022 ambulatory KATHRIN RAJIV Facility:[facility] Start: 07-22-2022 End: 07-22-2022 Patient encounter procedure Anai FORBES [facility] Start: 07-21-2022 End: 07-21-[address] NORA WINN Facility:[facility] Start: 07-15-2022 ambulatory JUDI YOUSSEF Facility: [facility] Start: 07-12-2022 Encounter for genera l adult medical examination without abnormal findings JUDI YOUSSEF [facility] Start: 07-08-2022 End: 07-09-2022 ambulatory JUDI [...] 04-29-2022 End: 04-29-2022 Lab Drop off Anai FORBES [facility] Start: 04-14-2022 End: 04-14-2022 Patient encounter procedure Monique Marquez [facility] Start: 03-27-2022 End: 03-30-2022 Evaluation and management of inpatient COLEYJuan Luis DAVIS Facility:[facility] Start: 03-01-2022 End: 03-01-2022 Patient encounter procedure Monique Marquez [facility] Start: 02-02-2022 End: 02-02-2022 ambulatory BALTAZAR GEORGES . Facility: Start: 01-28-2022 End: 01-28-2022 Patient encounter procedure Monique Marquez [facility] Start: 01-11-2022 End: 01-11-2022 Patient encounter procedure Anai FORBES [facility] Start: 12-24-2021 End: 12-24-2021 Patient encounter procedure JHOANA MELGOZA [facility] Start: 08-13-2019 End: 08-16-2019 Evaluation and management of inpatient LEONA MORTENSEN Facility:[facility] Procedures Date Procedure Procedure Detail Performing Clinician Start: 06-20-2024 Gluc bld gluc mntr dev cleared fda spec home use Kulwnat Hodge MD Work Phone: Start: 05-11-2024 Esophagogastroduodenoscopy ANIMAL HUSBANDRY TECHNICIAN-C Judi morales Work Phone: Start: 07-14-2023 Esophagoscp rig transoral hypopharynx crv esoph Evelyn Black RN Start: 05-25-2023 Esophageal motility study w/interp&rpt Evelyn Black RN Start: 03-23-2023 Computed tomography of abdomen and pelvis with contrast ANIMAL HUSBANDRY TECHNICIAN-Paula Youssef Work Phone: Start: 02-15-2023 Computed tomography of abdomen and pelvis with contrast ANIMAL HUSBANDRY TECHNICIAN-C Judi Youssef Work Phone: Start: 11-04-2022 CT of small intestine ANIMAL HUSBANDRY TECHNICIAN-C Judi Youssef Work Phone: Start: 10-26-2022 Computed tomography of abdomen and pelvis with contrast LINDA-C Judi Youssef Work Phone: Start: 01-11-2022 Esophagogastroduodenoscopy Anai FORBES Start: 05-13-2021 Esophagogastroduodenoscopy JHOANA PERR Y Start: 09-30-2020 Esophagogastroduodenoscopy JHOANA PERR Y Start: 03-13-2020 Colonoscopy Kulwant Hodge MD Work Phone: Start: 03-13-2020 Colonoscopy JHONAA MELGOZA Start: 01-30-2020 Esophagogastroduodenoscopy JHOANA BACAR Y Start: 08-15-2019 FLUOROSCOPY OF UPPER GI AND SMALL BOWEL USING OTHER CONTRAST ORESTES CONDON Start: 05-17-2019 Colonoscopy JHOANA MELGOZA Start: 05-17-2019 Esophagogastroduodenoscopy JHOANA PULIDO Y Start: 03-02-2019 Hernia surgical mesh (physical object) JHOANA MELGOZA Comment on above: Dr. Mortensen in [place]. Hernia repair JHOANA MELGOZA Hysterectomy JHOANA MELGOZA Plan of Treatment Date Care Activity Detail Author Start: 03-13-2030 Screening for malign ant neoplasm of colon [facility] Start: 07-13-2024 End: 07-13-2024 Patient encounter procedure 07/13/2024 11:10 AM EST Office Visit [facility] [address] [place] [id number] Kulwant Hodge MD [address] [place] [address] [facility] Start: 06-20-2024 End: 06-20-2025 Basic metabolic 1998 panel - Serum or Plasma Basic metabolic panel Lab Routine Hypoglycemia Expected: 06/20/2024 (Approximate), Expires: 06/20/2025 [facility] Comment on above: Expected: 06/20/2024 (Approximate), Expires: 06/20/2025 Start: 06-20-2024 End: 06-20-2025 C peptide [Mass/volume] in Serum or Plasma --fasting C PEPTIDE FASTING Lab Routine Hypoglycemia Expected: 06/20/2024 (Approximate), Expires: 06/20/2025 [facility] Work Phone: Comment on above: Expected: 06/20/2024 (Approximate), Expires: 06/20/2025 Start: 06-20-2024 End: 06-20-2025 Hepatic function 2000 panel - Serum or Plasma Hepatic function panel Lab Routine Hypoglycemia Expected: 06/20/2024 (Approximate), Expires: 06/20/2025 [facility] Comment on above: Expected: 06/20/2024 (Approximate), Expires: 06/20/2025 Start: 06-20-2024 End: 06-20-2025 Insulin, fasting Insulin, fasting Lab Routine Hypoglycemia Expected: 06/20/2024 (Approximate), Expires: 06/20/2025 [facility] Comment on above: Expected: 06/20/2024 (Approximate), Expires: 06/20/2025 Start: 06-20-2024 End: 06-20-2025 Insulin-like growth factor 2 Insulin-like growth factor 2 Lab Routine Hypoglycemia Expected: 06/20/2024 (Approximate), Expires: 06/20/2025 [facility] Comment on above: Expected: 06/20/2024 (Approximate), Expires: 06/20/2025 Start: 06-20-2024 End: 06-20-2025 Proinsulin Proinsulin Lab Routine Hypoglycemia Expected: 06/20/2024 (Approximate), Expires: 06/20/2025 [facility] Comment on above: Expected: 06/20/2024 (Approximate), Expires: 06/20/2025 Start: 05-11-2024 [facility] Start: 05-06-2024 Influenza vaccination Influenza Vacc ine (#1) [facility] Start: 05-06-2023 Covid-19 Vaccine ( season) Covid-19 Vaccine () [facility] Start: 05-06-[address] [facility] Start: 09-05-2022 DEPRESSION ASSESSMENT DEPRESSION ASS ESSMENT [facility] Start: 01-01-2022 COVID-19 VACCINE (4 - Pfizer series) COVID-19 VACCINE (4 - Pfizer series) [facility] Start: 2020 SHINGRIX VACCINE (1 of 2) SHINGRIX VACCINE (1 of 2) [facility] Start: 2015 COLOGUARD (FIT-DNA) COLOGUARD (FIT-D NA) [facility] Start: 2015 Colonoscopy COLONOSCOPY [facility] Start: 2015 COLORECTAL CANCER SCREENING COLORECTAL CANCER SCREENING [facility] Start: [address] COLONOGRAPHY [facility] Start: 2015 DIABETES SCREEN DIABETES SCREEN [facility] Start: 2015 Diabetes Screening Diabetes Screenin g [facility] Start: 2015 FECAL OCCULT BLOOD FECAL OCCULT BLOO D [facility] Start: 2015 Lipid 1996 panel - Serum or Plasma Lipid Screening [facility] Start: 2015 LIPID SCREEN LIPID SCREEN [facility] Start: 2015 SIGMOIDOSCOPY SIGMOIDOSCOPY [facility] Start: 2010 Mammography [facility] Start: 2010 Screening for malign ant neoplasm of breast Mammogram [facility] Start: 2000 HPV TESTING HPV TESTING [facility] Start: 2000 Screening for malign ant neoplasm of cervix [facility] Start: 1991 PAP TESTING PAP TESTING [facility] Start: 1991 Screening for malign ant neoplasm of cervix Pap Smear [facility] Start: 1989 Urine microalbumin profile [facility] Start: 1988 HEPATITIS C SCREENING HEPATITIS C SC REENING [facility] Start: 1988 HIV SCREENING HIV SCREENING [facility] Start: 1970 COVID-19 VACCINE (#1) COVID-19 VACCI NE (#1) [facility] Start: 1970 HEPATITIS B (1 of 3 - 3-dose series) HEPATITIS B (1 of 3 - 3-dose series) [facility] Start: 1970 Hepatitis B Vaccine (1 of 3 - 3-dose series) Hepatitis B Vaccine (1 of 3 - 3-dose series) [facility] Start: 1970 Screening for malign ant neoplasm of colon [facility] End: 07-29-2024 EGD - THERAPEUTIC, EUS, OR TUBE INTERVENTIONS EGD - THERAPEUTIC, EUS, OR TUBE INTERVENTIONS Endoscopy Routine Gastroparesis 1 Occurrences starting 07/29/2023 until 07/29/2024 [facility] Work Phone: Comment on above: 1 Occurrences starti ng 07/29/2023 until 07/29/2024 End: 05-16-2024 Esophageal motility study w/interp&rpt MANOMETRY ESOPHAGEAL Endoscopy Routine Nausea 1 Occurrences starting 05/16/2023 until 05/16/2024 [facility] Work Phone: Comment on above: 1 Occurrences starti ng 05/16/2023 until 05/16/2024 Esophageal motility study w/interp&rpt MANOMETRY ESOPHAGEAL Endoscopy Routine Nausea 05/25/2023 [facility] Work Phone: End: 06-14-2024 Gastric emptying imaging study NM GASTRIC EMPTYING SOLID Radiology Routine Nausea 1 Occurrences starting 05/16/2023 until 06/14/2024 [facility] Work Phone: Comment on above: 1 Occurrences starti ng 05/16/2023 until 06/14/[address] [facility] Work Phone: Patient referral [facility] Work Phone: SURGICAL PATHOLOGY [facility] Work Phone: Comment on above: Release Upon Orderin g for 1 Occurrences starting 07/14/2023, 1 completed [facility] Immunizations Immunization Date Immunization Notes Care Provider Jamal jackson 04-27-2024 zoster vaccine recombinant Kulwant Hodge MD Work Phone: [facility] 06-15-2022 SARS-CoV-2 (COVID-19 ) [id number] Yolanda Lou [facility] 06-09-2022 influenza, seasonal, injectable Kulwant Hodge MD Work Phone: [facility] 06-09-2022 influenza virus vaccine, unspecified formulation Nurse 2 Work Phone: [facility] 03-18-2022 SARS-CoV-2 mRNA (pspprpewukg-tlga-sij jett) vaccine Ospina SALAM [facility] 11-06-2021 SARS-CoV-2 (COVID-19 ) mRNA BNT-162b2 vax Ospina Petbrosia [facility] 05-06-2021 influenza virus vaccine, unspecified formulation JOHANA MELGOZA [facility] 02-26-2021 SARS-CoV-2 (COVID-19 ) mRNA BNT-162b2 vax JHOANA MELGOZA [facility] 02-05-2021 SARS-CoV-2 (COVID-19 ) mRNA BNT-162b2 vax [employer] [facility] Comment on above: Result Comment: 2021: [id number] NEGATED: Highlighted row has not occurred!04-14-2022 influenza virus vaccine, unspecified formulation Monique Jimmy [facility] Payers Date Payer Category Payer [facility] [id number] 2022 Unknown [employer] [employer] PPO [id number] 2022-Present [phone] [address] [place] [address] PPO [id number] 2018 Private Health Insurance [id number] 2018 Private Health Insurance [facility] CHOICE PLUS [id number] 2018-Present [phone] [address] [place] [address] HMO [id number] 1970 Unknown [id number] 2.16.840.1.775226.3.579.2 .647 1970 Unknown [id number] 2.16.840.1.242444.3.579.2 .593 1970 Unknown [id number] 2.16.840.1.193092.3.579.2 .593 1970 Unknown [id number] 2.16.840.1.514128.3.579.2 .593 1970 Unknown [id number] 2.16.840.1.155912.3.579.2 .593 1970 Unknown [id number] 2.16.840.1.471785.3.579.2 .593 1970 Unknown [id number] 2.16.840.1.303074.3.579.2 .593 1970 Unknown [id number] 2.16.840.1.838636.3.579.2 .593 1970 Unknown [id number] 2.16.840.1.207222.3.579.2 .593 1970 Unknown [id number] 2.16.840.1.859288.3.579.2 .593 1970 Unknown [id number] 2.16.840.1.155393.3.579.2 .593 1970 Unknown [id number] 2.16.840.1.879873.3.579.2 .593 1970 Unknown [id number] 2.16.840.1.066255.3.579.2 .593 1970 Unknown [id number] 2.16.840.1.058372.3.579.2 .593 1970 Unknown [id number] 2.16.840.1.745202.3.579.2 .593 1970 Unknown [id number] 2.16.840.1.871918.3.579.2 .593 1970 Unknown [id number] 2.16.840.1.444100.3.579.2 .593 1970 Unknown [id number] 2.16.840.1.639628.3.579.2 .593 1970 Unknown [id number] 2.16.840.1.689731.3.579.2 .593 1970 Unknown [id number] 2.16.840.1.456578.3.579.2 .593 1970 Unknown [id number] 2.16.840.1.284618.3.579.2 .593 1970 Unknown [id number] 2.16.840.1.627704.3.579.2 .356 1970 Unknown [id number] 2.16.840.1.907619.3.579.2 .356 1970 Unknown [id number] 2.16.840.1.353500.3.579.2 .1286 1970 Unknown [id number] 2.16.840.1.526018.3.579.2 .1286 1970 Unknown [id number] 2.16.840.1.235516.3.579.2 .1286 1970 Unknown [id number] 2.16.840.1.414224.3.579.2 .1286 1970 Unknown [id number] 2.16.840.1.214492.3.579.2 .727 1970 Unknown [id number] 2.16.840.1.177312.3.579.2 .727 1970 Unknown [id number] 2.16.840.1.277034.3.579.2 .727 1970 Unknown [id number] 2.16.840.1.039721.3.579.2 .727 1970 Unknown [id number] 2.16.840.1.987002.3.579.2 .1259 1959 Medicaid [id number] 1959 Self-pay [id number] 1959 Unknown [id number] 1959 Unknown [id number] Medicare Medicare [id number] Medicare Medicare [id number] Unknown [id number] 2.16.840.1.776763.3.579.2 .531 Unknown [id number] 2.16.840.1.592093.3.579.2 .531 Worker's Compensation [employer] Misc [id number] Social History Date Type Detail Facility Start: 12-03-2021 End: 05-11-2024 Tobacco smoking status Ex-smoker (finding) [facility] Start: 08-12-2020 End: 06-08-2024 Sex Assigned At Female [facility] 1970 Sex Assigned At Female [facility] End: 09-05-2011 History of tobacco use Current smoker [facility] Work Phone: End: 09-05-2011 History of tobacco use Cigarette Smoker [facility] Work Phone: Start: 04-28-2018 End: 05-06-2023 Tobacco use and exposure Smokeless tobacco non-user [facility] Work Phone: Start: 04-28-2018 End: 05-06-2023 Alcohol intake Current drinker of alcohol (finding) [facility] Start: 08-12-2020 End: 06-08-2024 History of Social function [facility] Start: 04-28-2018 End: 05-06-2023 Tobacco Comment still smokes [facility] Start: 04-28-2018 Alcohol [facility] Start: 1970 Sex Assigned At Not on file [facility] Start: 07-14-2023 Alcohol intake Ex-drinker (finding) [facility] Start: 06-08-2024 [facility] Goals Date Patient Goal Desired Activity /State Functional Status Date Assessment Result Facility 02-16-2024 Functional Status N/A [facility] 02-19-2023 Functional Status N/A [facility] 07-22-2022 Functional Status N/A [facility] 04-14-2022 Functional Status N/A [facility] Clinical Notes 12-02-2021 to 06-20-2024 Kulwant Hodge MD - 06/20/2024 10:50 AM EDT Note Date & Type Note Facility 06-20-2024 History of Present illness Narrative Constantino Cardoso is a 54 y.o. female Kulwant Hodge MD presents with chief complaint of Hypoglycemia (NEW) HPI: HPI: 06/2024 New patient sent from Judi Jerry CNP for episodes of hypoglycemia, A1c in our office 5.8 blood sugar 101, she tried to have gastric bypass but insurance does not approve, has history of hysterectomy, cholecystectomy, has wound left to her umbilicus, and more shaking anxiety when she has episodes I do not have meter or log book to confirm SUBJECTIVE: MEDICATIONS: Current Outpatient Medications Medication Instructions cholecalciferol (Vitamin D-3) 50 MCG (1999) capsule 1 capsule, Daily dicyclomine (Bentyl) 20 MG tablet 1 tablet, 3 times daily hyoscyamine (Anaspaz,Levsin) 0.125 MG tablet 1 tablet, Every 6 hours PRN lisinopril 10 mg, Daily RT metoprolol succinate XL (TOPROL-XL) 50 mg, Daily RT pantoprazole (PROTONIX) 40 mg, Daily before breakfast sertraline (ZOLOFT) 50 mg, Daily RT ALLERGIES: Allergies Allergen Reactions Cyclobenzaprine Swelling Other Reaction(s): Other, Swelling of Lip/Tongue/Throat, throat swelling Penicillins Rash and Swelling Penicillamine Rash Past Medical History: Diagnosis Date Acute diverticulitis Dyskinesia of esophagus History of hysterectomy Mitral valve prolapse Past Surgical History: Procedure Laterality Date GALLBLADDER HERNIA REPAIR HYSTERECTOMY REVIEW OF SYMPTOMS: 14 POINT OF SYSTEM REVIEWED AND NEGATIVE OBJECTIVE: Constitutional: Afebrile @ home; no weakness or night sweats SKIN: No change in skin color; no itching, rash or lesions; no hair loss; HEENT: No HAs or injury; no dizziness; No difficulty with vision; no eye pain, discharge or lesions; no hearing loss or difficulty; no nasal discharge, NECK: No pain, limitation of motion, lumps or swollen glands RESP: No cough, wheezing or difficulty breathing. No CP with breathing; CARDIO: No CP , SOB or fatigue, No edema, palpitations or dyspnea with exertion GI: No N/V/D or abd. pain; good appetite with no recent change. No heart burn, liver or gallbladder disease; no rectal bleeding or pain : No urinary pain , frequency or odor. MUSCULOSKELETAL: No muscle pain or cramps; no extremity weakness.No joint pain, stiffness, swelling or limitation of movement NEUROLOGY: No H/O seizures, stroke or fainting. No weakness, tremors. Hematology: No bleeding problems or excessive bruising ENDOCRINE: No increase in hunger, thirst or urination; admits compliance to medical management plan Feet: numbness tingling , ulcers or skin break Lab Results Component Value Date HGBA1C 5.8 06/20/2024 Lab Results Component Value Date GLU 101 06/20/2024 Visit Vitals BP (!) 140/92 Pulse 62 Resp 16 Ht 5' 7 Wt 185 lb BMI 28.98 kg/m Smoking Status Never BSA 1.99 m Physical Exam Constitutional: Appearance: Normal appearance. She is normal weight. HENT: Head: Normocephalic and atraumatic. Right Ear: External ear normal. Nose: Nose normal. Mouth/Throat: Pharynx: Oropharynx is clear. Eyes: Extraocular Movements: Extraocular movements intact. Pupils: Pupils are equal, round, and reactive to light. Cardiovascular: Rate and Rhythm: Normal rate and regular rhythm. Pulmonary: Effort: Pulmonary effort is normal. Abdominal: General: Abdomen is flat. Palpations: Abdomen is soft. Musculoskeletal: General: Normal range of motion. Skin: General: Skin is warm. Neurological: General: No focal deficit present. Mental Status: She is alert. Psychiatric: Mood and Affect: Mood normal. Behavior: Behavior normal. ASSESSMENT AND PLAN: Assessment/Plan Diagnoses and all orders for this visit: Hypoglycemia - POCT glucose manually resulted - POCT glycosylated hemoglobin (Hb A1C) docked device - C PEPTIDE FASTING; Future - Basic metabolic panel; Future - Hepatic function panel; Future - Insulin-like growth factor 2; Future - Proinsulin; Future - Insulin, fasting; Future I will check insulin, C-peptide, proinsulin rule out endogenous hyperinsulinemia, we will rule out secondary cause with hepatic function panel and IGF 2, I gave her two sample of Dexcom 7, and I told her to download the tomer. to able to do CGM for 20 days, and we will see her pattern when she comes next visit to the office. Meanwhile I recommend her to do small meals with a snack between to avoid hypoglycemia episodes. Encounter for dietary consultation Diet and exercise reviewed with the patient since Diet and exercise reviewed with the patient Follow up in about 3 weeks (around 07/11/2024). documented in this encounter [facility] 05-14-2024 Note [facility] Note Reason for cardiology [...] Arrhythmia, Hypertension, and NSVT (nonsustained ventricular tachycardia) (CMS/HCC). Surgical [...] to vasovagal r (more content not included)... [facility] 05-11-2024 Procedure note [facility] 04-26-2024 Evaluation note Authored April 26, 2024 [...] twice or three times daily if needed. [facility] Work Phone: [phone]) 945-989207-15-2024 [facility] Reason for [...] valve prolapse, and NSVT (nonsustained ventricular tachycardia) (CMS/[facility]). Surgical History She has a past surgical [...] hiatal hernia and acid (more content not included)...[facility] 02-16-2024 Evaluation + Plan note Diagnostic Tests Pending * Urine Culture 02/16/24 [facility]06-12-20[facility] [...] valve prolapse, and NSVT (nonsustained ventricular tachycardia) (CMS/[facility]). Surgical History She has a past surgical [...] 14 04/30/2019 ALBUMIN 3.8 04/30/2019 PROT 6.3 (more content not included)...[facility] 08-25-2023 NoteHNO ID: [id number] Author: Ellis Mayberry, DO Service: ? Author [...] Successful intubation technique: video laryngoscopy Devices used: AccelGolf Endotracheal tube insertion site: oral Blade: Jake Blade size: #3 ETT size (mm): 7.0 Measured from: lips Measurement (cm): 22 Placement verified by: chest auscultation and capnometry Cormack-Lehane Classification: grade I - full view of glottis Number of attempts at approach: 1 Airway not difficult SIGNATURE: Ellis Mayberry DO PATIENT NAME: Constantino Cardoso DATE: August 25, 2023 TIME: 2:59 PM CSN: [id number][facility] NoteQ[facility] Patient Name: Constantino Cardoso Procedure Date: 08/25/2023 2:38 PM Date of : 1970 Admit Type: Outpatient Age: 53 Gender: Female Note Status: Finalized Attending MD: Marques Bradley MD, [id number] Procedure: Upper GI endoscopy Indications: Gastroparesis- for [...] the patient. Procedure Code(s): --- Professional --- 99762 Diagnosis Code(s): --- Professional --- K44.9 Z98.890 CPT copyright 2020 [employer] [place]. All rights reserved. Attending Participation: I personally performed the entire procedure. Scope In: 2:59:10 PM Scope Out: 3:37:20 PM MD Marques Rainey MD 08/25/2023 3:41:00 PM This report has been signed electronically by Marques Bradley MD Number of Addenda: 0 Note Initiated On: 08/25/2023 2:38 [facility]11-24-2023 Note HNO ID: [id number] Author: Evelyn Black RN Service: ? Author Type: Registered Nurse Type: Progress Notes Filed: 07/29/2023 11:18 AM Note Text: [facility]11-24-2023 History of Present illness Narrative* Evelyn Black RN - 07/29/2023 11:17 AM EST e [facility] Instructions* Patient Instructions* Melissa Montalvo RD - [...] High Protein, Atkins, Boost Glucose Control, Owyn, [place] Breakfast Essentials Light Start mixed with Fairlife [...] calories, no carbonation, no caffeine. Protein juarez (lwkzrfo8h, Isopure, Gatorade protein), electrolyte drinks (Gatorade or Powerade zero, sugar free liquid IV or Drip Drop), sugar free jello and sugarfree popsicles are also acceptable. Nutrition Monitoring & Evaluation: increase PO intake >75% of estimated needs, weight check and patient update Need for Follow up: based on surgery status documented in this encounterChildren[facility]-2023 NoteHNO ID: [id number] Author: Melissa Montalvo RD Service: ? Author Type: Registered Dietitian Type: Progress Notes Filed: 07/22/2023 4:06 PM Note Text: [facility] Nutrition Therapy: Virtual Consult - Initial Assessment I have communicated my name and active licensure. The patient?s identity and physical location were verified at the time of this visit. Either the patient or their legal dairy supplies sales representative has been informed of the [...] High Protein, Atkins, Boost Glucose Control, Owyn, [place] Breakfast Essentials Light Start mixed with Fairlife [...] calories, no carbonation, no caffeine. 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 [place] body weight: 159 lbs. 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 07-22-2023 Miscellaneous Notes* Telephone Encounter - Evelyn Black RN - 07/22/2023 3:02 PM EST BMI SPECIALTY CARE COORDINATION TELEPHONE ENCOUNTER Pt was seen in clinic and an EGD was ordered and completed. Recommendation was a GPOEM. Will consult with surgeon next week regarding next POC for pt. Pt VU. documented in this encounterChildren[facility]-17-[facility]23 History of Present illness Narrative* Melissa Montalvo RD - 07/22/2023 1:15 PM EST [facility] Nutrition Therapy: Virtual Consult - Initial Assessment I have communicated my name and active licensure. The patient s identity and physical location wereverified at the time of this visit. Either the patient or their legal dairy supplies sales representative has been informed of the [...] High Protein, Atkins, Boost Glucose Control, Owyn, [place] Breakfast Essentials Light Start mixed with Fairlife fat free or 1% milk. -Check www.bariatricfusion.com or www.unNewsrepsry.com for additional options. Take small bites, eat slowly, chew food well, and always eat protein first. Separate eating and drinking by 30 min before and after. Aim for >64 oz water/day. Take small sips and avoid straws. Liquids should be sugar-free, no calories, no carbonation, no caffeine. Protein juarez (mgviqnl7l, Isopure, Gatorade protein), electrolyte drinks (Gatorade or [...] significant for adult onset weight gain (maintains [id number] lbs, highest 220 lbs in 2018). 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 [place] body weight: 159 lbs. 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 Procedure Code(s): --- Professional --- 57713 Diagnosis Code(s): --- Professional --- K44.9 K31.89 Z98.890 R10.13 CPT copyright 2020 [place] [employer]. All rights reserved. Attending Participation: I personally performed the entire procedure. Scope In: 10:40:19 AM Scope Out: 10:50:37 AM MD Marques Rainey MD 07/14/2023 10:53:09 AM This report has been signed electronically by Marques Bradley MD Number of Addenda: 0 Note Initiated On: 07/14/2023 10:24 [facility]11-09-2023 Nurse Note* Mónica Spaulding RN - 07/14/2023 [...] By: Mónica Spaulding RN BSN * Candace Jaramillo, VICKY - 07/14/2023 8:33 AM EST PRE OP [...] RN In Department: GASTROENTEROLOGY documented in this encounterChildren[facility]11-08-2023 NoteHNO ID: [id number] Author: Brennen Shaw, PhD Service: ? Author Type: Physician Type: Progress Notes Filed: 07/19/2023 10:07 AM Note Text: [facility] SURG[facility] BEHAVIORAL HEALTH EVALUATION DATE OF SERVICE: July 13, 2023 TIME OF SERVICE: 2:10 PM-3:29 PM COST CENTER: [facility] CPT CODE: - 63707 Brief Emotional/Behavioral Assessment with scoring/documentation - [id number] Virtual Psych Diagnostic Eval BILLING CODE: ENDO PSYL MAIN 51132/Marco DATE OF FIRST SERVICE THIS CYCLE: July 13, 2023 SESSION #: 1 BMI Surgical Pathway Visit type: Bariatric Surgeon Visit I have communicated my name and active licensure. The patient's identity and physical location were verified at the time of this visit. Either the patient or their legal dairy supplies sales representative has been informed of the risks and benefits of -- and alternatives to -- treatment through a remote evaluation and consents to proceed with the evaluation remotely. Zo for [facility] IDENTIFYING INFORMATION: Ms. Constantino Cardoso is a [...] during the binge episod (more content not included)...[facility] Miscellaneous Notes* Telephone Encounter - Evelyn Black [...] Pt agreed with plan. documented in this encounterChildren[facility]-21-2023 NoteHNO ID: [id number] Author: Nabil Bell RT(R) Service: Nuclear Medicine [...] safety can be found using this link: [email or web address] SIGNATURE: RT Charmaine(R) PATIENT NAME: Constantino Cardoso DATE: May 26, 2023 TIME: 7:17 AM PAGER/CONTACT #:[facility]09-20-2023 NoteHNO ID: [id number] Author: Pedro Gonzalez LPN Service: ? Author Type: LICENSED NURSE Type: Progress Notes Filed: 05/25/2023 4:15 PM Note Text: Name: Constantino Cardoso [facility]#: [id number] Date: 05/25/2023 ESOPHAGEAL MANOMETRY TEST Indication: Nausea [...] patient tolerated the test without difficulty. .[facility] History of Present illness Narrative* Pedro Gonzalez LPN - 05/25/2023 3:55 PM EDT Name: Constantino Cardoso [facility]#: [id number] Date: 05/25/2023 ESOPHAGEAL MANOMETRY TEST Indication: Nausea [...] difficulty. .Pedro Gonzalez LPN documented in this encounterChildren[facility]09-11-2023 Miscellaneous Notes* Telephone Encounter - Evelyn Black [...] after a gastric bypass. documented in this encounterChildren[facility]09-01-2023 NoteHNO ID: [id number] Author: Marques Bradley MD Service: ? Author [...] for internal providers or letter via the [employer] for external providers. Chief Complaint: [...] Marques Bradley MD Date: 05/12/2023 Time: 8:15 [facility]08-28-2023 Miscellaneous Notes* Telephone Encounter - Evelyn Black RN - 05/02/2023 9:[address] [facility] COORDINATION TELEPHONE ENCOUNTER Chief complaint & duration dysphagia. Type of procedure: hernia repair hiatal with Dr. MORTENSEN in [place] February of 2019. Sending OP notes Nursing assessment (subjective/objective) . pain in chest area and getting worse Went to [place] ED March 2023 who told her she needed a stent in her heart..but her c/o were difficulty swallowing and sent pt home and referred her to [facility] and was there in the hospital for [...] appt after records obtained documented in this encounterChildren[facility]08-22-2023 Miscellaneous Notes* Telephone Encounter - Evelyn Black RN - 04/26/2023 2:[address] [facility] COORDINATION TELEPHONE ENCOUNTER Second attempt to contact this pt. Pt has upcoming information, and unable to complete any chart prep, history, symptoms, testing etc. LVM and call back number. documented in this encounterChildren[facility]08-17-2023 Evaluation note* Encounter Date Diagnosis Assessment Notes Treatment Notes Treatment Clinical Notes Apr, Esophageal dysmotility (ICD-10 - K22.4) Apr, Esophageal spasm (ICD-10 - K22.4) Apr, Nausea & vomiting (ICD-10 - R11.2) Patinet reports that she still has nausea but no vomiting Patient reports that she is to see Dr. Strong at [facility] Patient is to start dicyclomine 20 mg 4 times daily sent to pharmcy today RTO 6 weeks Apr, Dysphagia (ICD-10 - R13.10) [employer] Other 08-14-2023 Miscellaneous Notes* Telephone Encounter - Evelyn Black RN - 04/18/2023 2:13 PM EDT BMI SPECIALTY CARE COORDINATION TELEPHONE ENCOUNTER Contacted pt regarding a referral from Dr Martinez's office. LVM and call back number. documented in this encounterChildren[facility]08-03-2023 Miscellaneous Notes* Telephone Encounter - Yancy Lopez - 04/07/2023 1:15 PM EDT Referral rec'd documented in this encounterChildren'[facility]06-17-2023 Evaluation + Plan note Extracted from: Title:ED [...] pain, # 20 tab(s), Refills(s) 0, Pharmacy: [facility]/pharmacy #[id number], 170, cm, 02/19/23 0:56:00 EDT, Height/Length Dosing, 90.2, kg, 02/19/23 0:56:00 EDT, Weight Dosing XR Elbow 3+ Views Right XR Wrist 3+ Views Right [facility]06-17-2023 Hospital Discharge instructions Patient Education [...] are safe for you. General instructions Take uyny-aos-iffrxkt and prescription medicines only as told by [...] provider. Document Revised: 12/29/2020 Document Reviewed: 12/29/2020 [employer] Patient Education 2022 [employer]. Follow Up Care 02/19/2023 00:51:16 With:JUDI YOUSSEF Address: [address] [place] [address] [phone] Business (1) When:02/22/2023 Comments:Take the pain medication as prescribed as needed for pain. Please follow-up with your primary care doctor in the next 2 to 3 days for further evaluation management. Please return to the ED for any new or worsening symptoms or [facility]08-10-2022 Hospital Discharge instructions Patient Education [...] water added (diluted fruit juice). Eat bland, nkzg-em-ifjgvo foods in small amounts as you are able. These foods include bananas, applesauce, rice, lean meats, toast, and crackers. Avoid fluids that contain a lot of sugar or caffeine, such as energy drinks, sports drinks, and soda. Avoid alcohol. Avoid spicy or fatty foods. General instructions Take pgyn-wjj-xeagrxm and prescription medicines only as told by your health care provider. Drink enough fluid to keep your urine pale yellow. Wash your hands often using soap and water. If soap and water are not available, use hand bench assembler. Make sure that all people in your [...] eating and drinking to prevent dehydration. Take reit-yur-uedxxcc and prescription medicines only as told by [...] 08/22/2006 Document Revised: 12/14/2019 Document Reviewed: 01/30/2019 [employer] Patient Education 2020 [employer]. Follow Up Care 01/28/2022 13:58:23 With:Monique Marquez CNP Address: When:3 months [facility] 05-26-2022 Hospital Discharge instructions Patient [...] drinks. ?Tomatoes and foods made with tomatoes. ?[place] or spicy foods. ?Chocolate and peppermint. Do not drink alcohol. General instructions Take ayzj-gzk-xxmllmz and prescription medicines only as told by [...] 11/11/2004 Document Revised: 12/18/2018 Document Reviewed: 12/18/2018 [employer] Patient Education 2020 [employer]. Follow Up Care 01/13/2022 12:36:01 With:Monique Marquez CNP Address: When:3 months [facility] 05-09-2022 Hospital Discharge instructions Patient Education 01/11/2022 09:56:58 Endoscopy, Care After Procedure [facility] Care After Procedure Please read the instructions outlined below and refer to this sheet in the next few weeks. These discharge instructions provide you with general information on caring [facility] Your doctor may also give you [...] blood. Document Released: 04/05/2005 Document Re-Released: 02/13/2007 [employer] Patient Information [employer]. 01/11/2022 09:56:58 Pearce's Esophagus Pearce's Esophagus Pearce's [...] drinks. ?Tomatoes and foods made with tomatoes. ?[place] or spicy foods. ?Chocolate and peppermint. Do not drink alcohol. General instructions Take rkpb-yhf-iwkquxq and prescription medicines only as told by [...] 11/11/2004 Document Revised: 12/18/2018 Document Reviewed: 12/18/2018 [employer] Patient Education 2020 [employer]. Follow Up Care 12/03/2021 15:32:26 With:Anai FORBES Address: [address] [place] [address] Business (1) When:1 to 2 weeks Comments:Call for any problems. [facility]03-30-2022 Hospital Discharge instructions Follow Up Care 12/02/2021 10:32:32 With:JHOANA MELGOZA PA-C, URL Address: [address] [place] [address] When: Unknown [facility] Evaluation + Plan note Future Appointments Appointment Date:01/11/2022 09:40:00 AM Scheduled Provider: Location:[facility] Surgical Services Appointment Type:Surgery FT [facility] Evaluation + Plan note Future Appointments Appointment Date:04/14/2022 03:00:00 PM Scheduled Provider:Monique Marquez CNP Location:[facility] Appointment Type:[facility] Follow Up Future Scheduled Tests Radiology* NM Gastric Emptying Study 01/28/22 [facility] Evaluation + Plan note Future Appointments Appointment Date:04/14/2022 03:00:00 PM Scheduled Provider:Monique Marquez CNP Location:[facility] Appointment Type:[facility] Follow Up [facility] Future Appointments Appointment Date:04/20/2022 12:00:00 PM Scheduled Provider: Location:.[facility] Appointment Type:US Abdominal/Pelvis () Appointment Date:06/02/2022 09:45:00 AM Scheduled Provider:Anai FORBES MD Location:[facility] Appointment Type:[facility] Follow Up Future Scheduled Tests Laboratory* Fecal WBC Lactoferrin 04/14/22 * Giardia lamblia, Direct Detection EIA 04/14/22 * O & P Exam, Routine 04/14/22 * Clostridium difficile by PCR 04/14/22 * Enteric Panel by PCR 04/14/22 * CBC w/ Auto Diff 04/14/22 * Comprehensive Metabolic Panel 04/14/22 Radiology* US Abdomen Complete 04/20/22 [facility] Evaluation + Plan note Future Appointments Appointment Date:06/02/2022 09:45:00 AM Scheduled Provider:Anai FORBES MD Location:[facility] Appointment Type:[facility] Follow Up Diagnostic Tests Pending * O & P Exam, Routine 04/29/22 * Giardia lamblia, Direct Detection EIA 04/29/22 [facility] noteNo assessment information available [facility] Work Phone: Evaluaysnl noteNo InformationNort [employer] Other Evaluation note* Diagnosis Nausea- Primary Nausea alone Dysphagia, unspecified type documented in this encounter [facility] note* Diagnosis Nausea Nausea alone documented in this encounter [facility] note* Diagnosis Dysphagia, unspecified type Gastroparesis History of Pricilla fundoplication Personal history of surgery to other organs documented in this encounter [facility] note* Diagnosis Gastroparesis- Primary Malnutrition of moderate degree (HCC) Malnutrition of moderate degree Gastro-esophageal reflux disease without esophagitis Esophageal reflux Overweight (BMI 25.0-29.9) Overweight Dietary counseling and surveillance Dietary surveillance and counseling documented in this encounter [facility] note* Diagnosis Gastroparesis- Primary documented in this encounter [facility] note* Diagnosis Onset Date Resolution Status Abdominal adhesions acute Dysphagia acute Small bowel obstruction acut e [facility] Work Phone: Evaluation note* Diagnosis Hypoglycemia- Primary Hypoglycemia, unspecified Encounter for dietary consultation documented in this encounter [facility] Healthcare[facility] and physical note Author Jennie Ayon [facility] May 11, 2024 10:16am Note Date/Time May 11, 2024 10:16am [facility] ENTER [address] [place] [address] Gastroenterology H&P Signed Patient: Constantino Cardoso MR#: [id number] : 1970 Acct:[id number] Age/Sex: 53 / F Adm Date: 4 Loc: Room: Type: [facility] Attending Dr: Jennie Ayon MD [...] signed by Jennie Ayon MD> 05/11/24 1016 [facility] Work Phone: History general Narrative - Reported* Type Description Date Medical History mitral valve prolapse Medical History gallstones Medical History Acid reflux Medical History Hiatal Hernia Medical History headache Surgical History hysterectomy Surgical History cholecystectomy Surgical History hiatal hernia repair Hospitalization History see above Hospitalization History kindey infections hospit alized x3 [facility] Other Hospital course Narrative No data available for this section [facility] Hospital Discharge instructions No data available for this section [facility] Additional Instructions Follow-up with your primary care doctor Return to ED if develop worsening symptoms or concerns[facility] Work Phone: Hospital Discharge instructions Additional Instructions If your symptoms return/worsen or you develop any further concerns or symptoms please see your doctor or return to the emergency department immediately. Please be sure to continue follow-up with the lining cementer and with your scheduled EGD and further testing.[facility] Work Phone: Hospital Discharge instructions Additional Instructions [...] NOT operate machinery such as power tools, lawn mowers, snow blowers, sewing machines, etc. for [...] problems. -Follow up with PCP. -Office number [phone]. [facility] Work Phone: Progress note No data available for this section [facility] for referral (narrative)* Diagnostic Procedure Only (Routine) - Authorized Specialty Diagnoses / Procedures Referred By Contac t Referred To Contact MOLECULAR & FUNCTIONAL IMAGING Diagnoses Nausea Procedures NM GASTRIC EMPTYING SOLID GASTRIC EMPTYING STUDY Marques Bradley MD [address] [place], [place] [id number] Molecular & Functional Imaging [address] [place] [address] Referral ID Status Reason Start Date Expiration Date Visits Requested Visits Authorized [id number] Authorized Auto-Generat ed Referral 05/16/2023 06/14/2024 1 1 * Outpatient Procedure (Routine) - Authorized Specialty Diagnoses / Procedures [facility]erred To Contact [facility] Diagnoses Nausea Procedures MANOMETRY ESOPHAGEAL ESOPHAGEAL MOTILITY STUDY W/INTERP&[place] [address] [place] [address] [facility] [address] [place] [address] Referral ID Status Reason Start Date Expiration Date Visits Requested Visits Authorized [id number] Authorized Auto-Generat ed Referral 05/16/2023 05/16/2024 1 1 [facility] for referral (narrative)* Outpatient Procedure (Routine) - Closed Specialty Diagnoses / Procedures [facility] Referred To Contact [facility] Diagnoses Dysphagia, unspecified type Gastroparesis History of Pricilla fundoplication Procedures EGD - THERAPEUTIC, EUS, OR TUBE INTERVENTIONS ESOPHAGOGASTRODUODENOSCOPY TRANSORAL DIAGNOSTIC STOMACH SURGERY PROCEDURE UNLISTED Marques Bradley MD [address] [place] [address] [address] Referral ID Status Reason Start Date Expiration Date V isits Requested Visits Authorized [id number] Closed Auto-Generate d Referral 05/27/2023 05/27/2024 1 1 [facility] for referral (narrative)* Outpatient Procedure (Routine) - Authorized Specialty Diagnoses / Procedures Referred By Contac Referred To Contact [facility] Diagnoses Gastroparesis Procedures EGD - THERAPEUTIC, EUS, OR TUBE INTERVENTIONS ESOPHAGOGASTRODUODENOSC OPY TRANSORAL DIAGNOSTIC STOMACH SURGERY PROCEDURE UNLISTED Marques Bradley MD [address] [place] [address] [address] Referral ID Status Reason Start Date Expiration Date Visits Requested Visits Authorized [id number] Authorized Auto-Generat ed Referral 07/29/2024 1 1 [facility] for visit Narrative* Outpatient Procedure (Routine) - Closed Specialty Diagnoses / Procedures [facility] Referred To Contact [facility] Diagnoses Dysphagia, unspecified type Gastroparesis History of Pricilla fundoplication Procedures EGD - THERAPEUTIC, EUS, OR TUBE INTERVENTIONS ESOPHAGOGASTRODUODENOSCOPY TRANSORAL DIAGNOSTIC STOMACH SURGERY PROCEDURE UNLISTED Marques Bradley MD [address] [place] [address] [facility] [address] [place] [address] Referral ID Status Reason Start Date Expiration Date V isits Requested Visits Authorized [id number] Closed Auto-Generate d Referral 05/27/2023 05/27/2024 1 1 [facility] Summary Purpose Family History No Family History [...] Date/ Time Advance Directives No November 23, 9:23am Advance Directive Response Recorded Date/ Time Advance Directives No November 23 018 10:23am Hospital Course Note MR#: [id number] [facility] Pt. Name: Constantino Cardoso Admitted: 08/13/2019 [...] a 49-year-old female, who was transferred to [facility] from [facility] with acute abdominal pain. The pain has started on Tuesday while at work. 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 The pain feels similar to when she was here in April during her stay. During that time, she was told there was nothing left for Dr. Mortensen to do and she has been following up with GI specialist in [place]. She is actually due to have an [...] to Small b owel obstruction Dysphagia Dysphagia r13.0 Reason for Visit Abdominal adhesions Dysphagia Small bowel obstruction Additional Source Comments INFORMATION SOURCE (unrecogn ized section and content) DATE CREATED AUTHOR 06/03/2020 [facility] DATE CREATED AUTHOR AUTHOR'S ORGANIZ ATION 01/17/2023 [facility] DATE CREATED AUTHOR AUTHOR'S ORGANIZ ATION 04/02/2023 [facility] DATE CREATED AUTHOR AUTHOR'S ORGANIZ ATION 08/26/2023 [facility] DATE CREATED AUTHOR AUTHOR'S ORGANIZ ATION 12/03/2023 [facility] DATE CREATED AUTHOR AUTHOR'S ORGANIZ ATION 02/17/2024 [facility] DATE CREATED AUTHOR AUTHOR'S ORGANIZ ATION 02/19/2024 [facility] DATE CREATED AUTHOR AUTHOR'S ORGANIZ ATION 04/10/[address] [facility] DATE CREATED AUTHOR AUTHOR'S ORGANIZ ATION 05/14/2024 [facility] DATE CREATED AUTHOR AUTHOR'S ORGANIZ ATION 06/09/[address] [facility] DATE CREATED AUTHOR AUTHOR'S ORGANIZ ATION 06/21/2024 [facility] DATE CREATED AUTHOR AUTHOR'S ORGANIZ ATION 06/22/2024 [facility] Special[facility] EPIC Care Team (unrecognized sect ion and content) Team Status: Active Member Role Status Dates Judi Youssef ANIMAL HUSBANDRY TECHNICIAN-C Primary Care Provider Active Team Status: Active Member Role Status Dates Judi Youssef ANIMAL HUSBANDRY TECHNICIAN-C Primary Care Provider Active Start: April 13, 2024 Juarez Cruz DO Attending Provider Active Sta rt: April 13, 2024 Team Status: Inactive Member Role Status Dates Judi Youssef NP-C Primary Care Provider Active Start: April 26, 2024 End: April 26, 2024 Jennie Ayon MD Attending Provider Active Start: April 26, 2024 End: April 26, 2024 Team Status: Inactive Member Role Status Dates Judi Youssef NP-C Primary Care Provider Active Start: May 11, 2024 End: May 11, 2024 Jennie Ayon MD Attending Provider Active Start: May 11, 2024 End: May 11, 2024 Team Status: Active Member Role Status Dates Judi Youssef NP-C Primary Care Provider Active Start: May 11, 2024 Jennie Ayon MD Attending Provider, Other Provider Active Start: May 11, 2024 Team Status: Inactive Member Role Status Dates Judi Youssef NP-C Primary Care Provider Active Start: June 19, 2024 End: June 19, 2024 Jennie Ayon MD Attending Provider Active Start: June 19, 2024 End: June 19, 2024 Team Status: Inactive Member Role Status Dates Judi Youssef NP-C Primary Care Provider Active Conner Griffith DO Emergency Provider Active Team Status: Inactive Member Role Status Dates Jennie Ayon MD Attending Provider Active Judi Youssef ANIMAL HUSBANDRY TECHNICIAN-C Primary Care Provider Active Team Status: Inactive Member Role Status Dates Judi Youssef ANIMAL HUSBANDRY TECHNICIAN-C Primary Care Provider Active Pete Thakkar DO Emergency Provider Active On Call Pharmacy Technician Relationship Specialty Start Date End Date Joel Alejandra PCP - General Family Medicine 04/26/18 Raf[address] R[address] [place] [address] [address] [place] [address] Referring General Surgery 04/26/18 On Call Pharmacy Technician Relationship Specialty Start Date End Date Joel Alejandra PCP - General Family Medicine 04/26/18 Rafa Rangel [address] [place] [address] [address] [place] [phone] Referring General Surgery 04/26/18 On Call Pharmacy Technician Relationship Specialty Start Date End Date Joel Alejandra PCP - General Family Medicine 04/26/18 Rafa Rangel [address] [facility] [address] [place] [phone] Referring General Surgery 04/26/18 On Call Pharmacy Technician Relationship Specialty Start Date End Date Joel Alejandra PCP - General Family Medicine 04/26/18 Rafa Rangel [address] [place] [address] [address] [place] [address] Referring General Surgery 04/26/18 On Call Pharmacy Technician Relationship Specialty Start Date End Date DomenicoJoel blanco PCP - General Family Medicine 04/26/18 Rafa Rangel [address] [place] [address] [address] [place] [address] Referring General Surgery 04/26/18 On Call Pharmacy Technician Relationship Specialty Start Date End Date Ny Joel Onel PCP - General Family Medicine 04/26/18 Rafa Rangel [address] [place] [address] [address] [place] [address] Referring General Surgery 04/26/18 On Call Pharmacy Technician Relationship Specialty Start Date End Date Joel Alejandra PCP - General Family Medicine 04/26/18 Rafa Rangel [address] [place] [address] [address] [place] [address] Referring General Surgery 04/26/18 On Call Pharmacy Technician Relationship Specialty Start Date End Date Domenicobella Joel Onel PCP - General Family Medicine 04/26/18 Rafa Rangel [address] [place] [address] [address] [place] [phone] Referring General Surgery 04/26/18 On Call Pharmacy Technician Relationship Specialty Start Date End Date Joel Alejandra PCP - General Family Medicine 04/26/18 Rafa Rangel [address] [place] [address] [address] [place] [phone] Referring General Surgery 04/26/18 On Call Pharmacy Technician Relationship Specialty Start Date End Date Joel Alejandra PCP - General Family Medicine 04/26/18 Rafa Rangel [address] [place] [address] [address] [place] [address] Referring General Surgery 04/26/18 On Call Pharmacy Technician Relationship Specialty Start Date End Date Joel Alejandra PCP - General Family Medicine 04/26/18 Rafa Rangel [address] [place] [phone] Referring General Surgery 04/26/18 On Call Pharmacy Technician Relationship Specialty Start Date End Date Unallocated, [place] [address] [place] [address] PCP - General 04/25/23 Judi Youssef MD [address] [place] [address] Referring Physician Family Medicine 04/25/23 On Call Pharmacy Technician Relationship Specialty Start Date End Date Unallocated, Miracle Jesus MD [address] [place] [address] PCP - General 04/25/23 Judi Youssef MD [address] [place] [address] Referring Physician Family Medicine 04/25/23 Goals (unrecognized section and content) Goals may be documented in a n alternate section REASON FOR VISIT (unrecogniz ed section and content) Reason Comments Appointment Reason Comments 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 - Other Reason Onset Date Comments Procedure 05/25/2023 Manometry Esopha geal Specialty Diagnoses / Procedures Referred By Contac t Referred To Contact [facility] Diagnoses Nausea Procedures MANOMETRY ESOPHAGEAL ESOPHAGEAL MOTILITY STUDY W/INTERP&RPT Marques Bradley MD [address] [place] [address] [place] [address] Referral ID Status Reason Start Date Expiration Date V isits Requested Visits Authorized [id number] Closed Auto-Generate d Referral 05/16/2023 05/16/2024 1 1 Reason Comments Results Reason Comments Patient Education Assessment Reason Comments Hypoglycemia NEW Source Comments (unrecognize d section and content) In the event this informatio n is protected by the Federal Confidentiality of Alcohol and Drug Abuse Patient Records regulations: The Federal rules restrict any use of the information to criminally investigate or prosecute any alcohol or drug abuse patient.[facility] the event this information is protected by the Federal Confidentiality of Alcohol and Drug Abuse Patient Records regulations: The Federal rules restrict any use of the information to criminally investigate or prosecute any alcohol or drug abuse patient.[facility] the event this information is protected by the Federal Confidentiality of Alcohol and Drug Abuse Patient Records regulations: The Federal rules restrict any use of the information to criminally investigate or prosecute any alcohol or drug abuse patient.[facility] the event this information is protected by the Federal Confidentiality of Alcohol and Drug Abuse Patient Records regulations: The Federal rules restrict any use of the information to criminally investigate or prosecute any alcohol or drug abuse patient.[facility] the event this information is protected by the Federal Confidentiality of Alcohol and Drug Abuse Patient Records regulations: The Federal rules restrict any use of the information to criminally investigate or prosecute any alcohol or drug abuse patient.[facility] the event this information is protected by the Federal Confidentiality of Alcohol and Drug Abuse Patient Records regulations: The Federal rules restrict any use of the information to criminally investigate or prosecute any alcohol or drug abuse patient.[facility] the event this information is protected by the Federal Confidentiality of Alcohol and Drug Abuse Patient Records regulations: The Federal rules restrict any use of the information to criminally investigate or prosecute any alcohol or drug abuse patient.[facility] the event this information is protected by the Federal Confidentiality of Alcohol and Drug Abuse Patient Records regulations: The Federal rules restrict any use of the information to criminally investigate or prosecute any alcohol or drug abuse patient.[facility] the event this information is protected by the Federal Confidentiality of Alcohol and Drug Abuse Patient Records regulations: The Federal rules restrict any use of the information to criminally investigate or prosecute any alcohol or drug abuse patient.[facility] the event this information is protected by the Federal Confidentiality of Alcohol and Drug Abuse Patient Records regulations: The Federal rules restrict any use of the information to criminally investigate or prosecute any alcohol or drug abuse patient.[facility] the event this information is protected by the Federal Confidentiality of Alcohol and Drug Abuse Patient Records regulations: The Federal rules restrict any use of the information to criminally investigate or prosecute any alcohol or drug abuse patient.[facility] the event this information is protected by the Federal Confidentiality of Alcohol and Drug Abuse Patient Records regulations: The Federal rules restrict any use of the information to criminally investigate or prosecute any alcohol or drug abuse patient.[facility] FOR RECORDS PERTAINING TO PATIENTS WHO ARE [...] BE BASED ON THE PRIMARY CLINICAL RECORDS. [facility] [employer] [facility]. provides no warranty or guarantee of the accuracy or completeness of information in this document.
[2024-06-24 05:53] VITALS: BP 149/88; PULSE 62; O2SAT 98
== END 2024-06-24 05:55 | disposition home or self-care (01) ==
PROVIDERS: Emergency Provider Emergency Medicine; PCP Nurse Practitioner Family
DX: S80.02XA Contusion of left knee, initial encounter (principal); M25.462 Effusion, left knee; W18.09XA Striking against other object with subsequent fall, initial encounter; Z87.891 Personal history of nicotine dependence
CPT/HCPCS: 73562; 99283

== ENCOUNTER 2024-07-09 08:32 | Outpatient (OUT) | payer BC, SELFPAY ==
--- NOTE | 2024-07-09 08:35 | MR_ITS ---
The [address] [address] Patient Name: CONSTANTINO CARDOSO MRN: [id number] date: 1970 Sex: F Assigned Patient Location: MRI Current Patient Location: MRI Accession/Order Number: [id number] Exam Date: 07/09/2024 08:50 Report Date: 07/09/2024 16:50 At the request of: FREDA HARDEN Procedure: MR knee LT wo con EXAM: MR knee LT wo con HISTORY: Acute Pain Of Left Knee. COMPARISON: 06/24/2024 TECHNIQUE: MRI images obtained with multiple sequences. MRI of the left knee without contrast. Sequences obtained by standard department protocol. FINDINGS: Anterior cruciate and posterior cruciate ligaments are intact. Medial collateral ligament and lateral supporting structures are intact. Medial meniscus is intact. Medial compartment articular cartilage is preserved. Lateral meniscus is intact. Lateral compartment articular cartilage is preserved. Extensor mechanism is intact. Bone marrow contusion of the inferior aspect of the patella. (Sagittal PD fat-sat image 9). Edema of the lateral aspect of Hoffa's fat pad, suggesting Hoffa's fat pad impingement. No knee joint effusion. No popliteal cyst. No significant subcutaneous soft tissue edema about the knee joint. No acute fractures. No popliteal cyst. MR/MR knee LT wo con IMPRESSION: 1. Bone marrow contusion of the inferior aspect of the patella. (Sagittal PD fat-sat image 9). 2. Edema of the lateral aspect of Hoffa's fat pad, suggesting Hoffa's fat pad impingement. 3. No knee joint effusion. 4. No acute fractures. Electronically authenticated by: ADDIS GANDHI Date: 07/09/2024 16:50
== END 2024-07-09 08:33 | disposition home or self-care (01) ==
LOC: MRI 08:32
PROVIDERS: PCP Nurse Practitioner Family; Visit Provider Physician Assistant
DX: M25.562 Pain in left knee (principal)
CPT/HCPCS: 73721

== ENCOUNTER 2024-08-28 04:01 | Emergency (ER) | payer BC, SELFPAY ==
[2024-08-28] VITALS (45 sets, daily range): BP systolic 140–193; BP diastolic 90–122; PULSE 68–89; TEMP 36.4–37.2; O2SAT 92–99; BMI 28.2
--- OUTSIDE RECORDS SUMMARY | 2024-08-28 04:07 | XMS_ITS | CCD ---
Author Organization [facility] ion [facility] Care Team Providers Care [employer] Name Role Phone LEONA MORTENSEN Admitting Unavailable LEONA MORTENSEN Attending Unavailable KEVIN HERRERA Primary Care Unavailable KEVIN HERRERA Referring Unavailable [place] Procedure Practitioner Unavailab ORESTES Cruz Surgeon Unavailable JUDI YOUSSEF Primary Care Physician DONI Youssef Primary Care Provider DO Conner Griffith Emergency Provider [phone] Jennie Ayon Unavailable MD Jennie Ayon Attending Provider [phone] JOHNATHAN RUDOLPH Attending Unavailibis RUDOLPH, [...] Unavailable JUDI YOUSSEF Primary Care Unavailable ALEXIA Larson, DR GUILLERMO Castro Consulting Unavaila SHAIKH Juan Luis Grant Attending [...] V Consulting Unavailable MIKAEL, JUDI Attending Unavailable MIKAELJUDI VALLECILLO Primary Care Unavailable JUDI YOUSSEF Consulting Unavailable LINDA Youssef-Paula Judi Joan Primary Care Provider [phone] DO Conner Griffith Emergency Provider DO Pete Thakkar Emergency Provider [phone] [facility], [facility] Primary Care Provider Rafa Rangel Unavailable [phone] Renny Omalley Unavailable MARQUES BRADLEY Referring Unavailable PAVLOCK, [facility] Primary Care Unavailable PAVLOCK, [facility] Primary Care Unavailable KROH, MARQUES Patel Referring Unavailable KROH, MARQUES Patel Attending Unavailable IMER CHERRY Referring Unavailable PAVLOCK, [facility] Primary Care Unavailable PAVLOCK, [facility] Primary Care Unavailable KROH, MARQUES Patel Referring Unavailable KAITLYN TORRES Attending Unavailable KROHMARQUES Referring Unavailable PAVLOCK, [facility] Primary Care Unavailable MELISSA MONTALVO Attending Unavailable KROH, MARQUES Patel Referring Unavailable PAVLOCK, [facility] Primary Care Unavailable SLY, SLY ADEL Attending Unavailable KROHMARQUES Referring Unavailable PAVLOCK, [facility] Primary Care Unavailable BRENNEN SHAW Attending Unavailable Orzech, Yolanda X Attending Unavailable Orzech, Yolanda X Admitting Unavailable Orzech, Yolanda X Attending Unavailable Orzech, Yolanda X Admitting Unavailable Orzech, Yolanda X Attending Unavailable Samuel Estrella Attending Unavailable LINDA Youssef-Paula Judi Joan Primary Care Provider [phone] MD Nany Imleo Attending Provider EDISON KINCAID Attending Unavailable EDISON KINCAID Attending Unavailable EDISON KINCAID Attending Unavailable Orzech, Yolanda X Attending Unavailable Judi Youssef Joan Primary Care Unavailable Asaad, Imad Admitting Unavailable Asaad, Imad Attending Unavailable Mikael, Judi Joan Primary Care Unavailable Asaad, Imad Admitting Unavailable Asaad, Imad Attending Unavailable Unallocated , Noms Provider Primary [facility] Judi Youssef MD Unavailable KULWANT HODGE Attending Unavailable KULWANT HODGE Referring Unavailable KULWANT HODGE Attending Unavailable No, Pcp Primary Care Provider Unavailibis e JUSTIN ULCERO Admitting Unavailable JUSTIN LUCERO Attending Unavailable NO, PCP Primary Care Unavailable Allergies Allergy Classification Reported Allergen(s) Allergy Type Date of Onset Reaction(s) Facility (9 sources) cyclobenzaprine; Translations: [CYCLOBENZAPRINE] Drug Allergy 04-28-20 18 Swelling of Lip/Tongue/Thr oat, Swelling of Lip/Tongue/Thr oat, throat swelling [facility] (10 sources) Penicillins; Translations: [PENICILLINS] Drug allergy (disorder) 09-02-20 15 Rash [facility] (20 sources) cyclobenzaprine; Translations: [cyclobenzaprine] Drug Allergy 04-28-20 18 Pharyngeal swelling (finding), Swelling, Other (See Comments) [facility] (20 sources) Penicillin; Translations: [penicillin] Drug Allergy 04-28-20 18 Swelling (morphologic abnormality), Swelling [facility] (11 sources) penicillAMINE Drug Allergy 04-26-20 24 rash [facility] (2 sources) cyclobenzaprine Drug Allergy 03-23-20 16 [facility] (1 source) traMADol Drug Allergy [facility] (1 source) traMADol Drug Allergy [facility] (1 source) cyclobenzaprine Drug Allergy 05-01-20 [facility] Rep[facility] (1 source) penicillAMINE Drug Allergy 05-01-20 24 [facility] (1 source) Penicillins Drug allergy (disorder) 05-01-20 24 [facility] (6 sources) penicillAMINE Drug Allergy 05-01-20 24 Rash [facility] (6 sources) Penicillins Drug Allergy 04-28-20 18 Rash, Swelling [facility] (1 source) Penicillins Propensity to adverse reactions to drug 04-28-20 18 Other (See Comments), Rash, Swelling [facility] Medications Current Medications Medication Drug Class(es) Dates Sig (Normalized) Sig (Original) acarbose 25 mg oral tablet (3 sources) alpha-Glucosidase Inhibitor Start: 07-13-2024 End: 07-13-2025 take 1 tablet by mouth twice daily acarbose (PRECOSE) 25 MG tablet Take 1 tablet by mouth 2 times daily 07/16/2024 Active acetaminophen 325 mg oral tablet (11 sources) [...] Status: Ordered cholecalciferol 0.05 mg oral capsule (9 sources) Vitamin D Start: 05-01-2024 take 1 capsule by mouth once daily vitamin D (VITAMIN D3) 50 MCG (1999 UT) CAPS capsule Take 1 capsule by mouth daily 05/01/2024 Active estradiol 0.1 mg/ml vaginal cream (3 sources) Estrogen Start: 02-16-2024 Estrace 0.1 mg/g Cream 1 gm, Vaginal, As Directed, 42.5 gm, Refill(s) 3, Apply pea-sized amount around urethra every night x 3 weeks, then 2 times weekly for maintenance, [id number], 170, cm, 02/16/24 9:10:00 EDT, Height/Length [...] day(s), # 90 tab(s), Refills(s) 0, Pharmacy: [id number], 170, cm, 01/28/22 13:40:00 [...] 12:01am hyoscyamine sulfate 0.125 mg oral tablet (9 sources) Start: 05-01-2024 take 1 tablet by mouth every six hours as needed hyoscyamine (Anaspaz,Levsin) 0.125 MG tablet Take 1 tablet by mouth every 6 (six) hours if needed 05/01/2024 Active Start: 05-01-2024 take 0.125 mg by ana th once daily Hyoscyamine Sulfate Active 0.125 MG PO Daily May 01, 2024 12:00am take 1 tablet by ana th every four hours as needed hyoscyamine (ANASPAZ;LEVSIN) 0.125 MG tablet Take 1 tablet by mouth every 4 hours as needed for Cramping Active 10 ml lidocaine hydrochloride 10 mg/ml injection (13 sources) Antiarrhythmic, Amide Local Anesthetic Start: 08-17-2024 End: 08-18-2024 take 1 dose intravenously once daily 1 mL, IntraDERmal, ONCE PRN, 1 dose, Starting on Tue08/17/24 at 1120, Until 08/18/24 at 1120, IV start, Pre-op (day of surgery) Start: 04-24-2018 LIDOCAINE VISC OUS 2 % solution lisinopril 10 mg oral tablet (9 sources) Angiotensin Converting Enzyme Inhibitor Start: 03-19-2024 End: 03-19-2025 take 1 tablet by mouth in the morning lisinopril 10 MG tablet Take 10 mg by mouth in the morning. 03/19/2024 03/19/2025 Active 24 hr metoprolol succinate 50 mg extended release oral tablet (9 sources) beta-Adrenergic Serena Start: 05-01-2024 take 50 [...] Daily, # 90 cap(s), Refills(s) 3, Pharmacy: [facility] #[id number], 170, cm, 01/11/22 9:17:00 EDT, Height/Length Dosing, 83, kg, 01/11/22 9:17:00 EDT, Weight Dosing Start Date: 01/11/22 Status: Ordered omeprazole 40 mg Cap-DR (1 source) Start: 01-28-2022 End: 04-28-2022 take 1 capsule by mouth once daily omeprazole 40 mg Cap-DR 40 mg = 1 cap(s), Oral, Daily, X 90 day(s), # 90 cap(s), Refills(s) 0, Pharmacy: [id number], 170, cm, 01/28/22 13:40:00 EDT, Height/Length Dosing, 84.5, kg, 01/28/22 13:40:00 EDT, Weight Dosing Start Date: 01/28/22 Stop Date: 04/28/22 Status: Ordered pantoprazole 40 mg delayed release oral tablet (20 sources) Proton Pump Inhibitor Start: 02-15-2023 End: 05-16-2024 take 1 tablet by mouth once daily pantoprazole (PROTONIX) 40 MG tablet Take 1 tablet by mouth daily 08/25/2023 Active Start: 04-13-2018 End: 02-25-2019 take [...] 2018 11:34am sertraline 50 mg oral tablet (9 sources) Serotonin Reuptake Inhibitor Start: 01-29-2024 take 1 tablet by mouth in the morning sertraline (Zoloft) 50 MG tablet Take 50 mg by mouth in the morning. 01/29/2024 Active 1000 ml sodium chloride 9 mg/ml injection (4 sources) Start: 08-17-2024 IntraVENous, a t 125 mL/hr, CONTINUOUS, Starting on Tue08/17/24 at 1145, Pre-op (day of surgery) Start: 08-17-2024 IntraVENous, a t 5-250 mL/hr, PRN, if patient receiving piggyback infusions and maintenance fluids are not ordered, Starting on Tue08/17/24 at 1120, For piggyback infusion, administer at same rate as piggyback for a total of 25 mL. Enter 25 mL into dose field and piggyback rate into rate field of order. If piggyback is infusing at a rate less than 100 mL/hr, enter 25 mL into dose field and 100 mL/hr into rate field of order., Pre-op (day of surgery) Start: 08-17-2024 5-40 mL, Intra VENous, EVERY 12 HOURS SCHEDULED (2 times per day), First dose on Tue08/17/24 at 1145, Until Discontinued, For Line Patency: Peripheral IV = 5 mL; Midline or Central Line = 10 mL/lumen. If following IV push medication, administer flush at same rate as the IV push. Flush volume is determined by type of infusion therapy being given. For non-viscous solutions use: Peripheral IV = 5 mL Midline or Central Line = 10 mL/lumen For viscous solutions (i.e. blood components, parenteral nutrition, contrast media, or after obtaining blood sample) use: Peripheral IV = 10 mL Midline or Central Line = 20 mL/lumen, Pre-op (day of surgery) Start: 08-17-2024 5-40 mL, Intra VENous, PRN, Starting on Tue08/17/24 at 1120, Until Discontinued, Line Care, After every IV line use, For Line Patency: Peripheral IV = 5 mL; Midline or Central Line = 10 mL/lumen. If following IV push medication, administer flush at same rate as the IV push. Flush volume is determined by type of infusion therapy being given. For non-viscous solutions use: Peripheral IV = 5 mL Midline or Central Line = 10 mL/lumen For viscous solutions (i.e. blood components, parenteral nutrition, contrast media, or after obtaining blood sample) use: Peripheral IV = 10 mL Midline or Central Line = 20 mL/lumen, Pre-op (day of surgery) Symbicort 160/4.5 inhalation aerosol with adapter (11 [...] Nausea/Vomiting, # 12 tab(s), Refills(s) 0, Pharmacy: [facility]/pharmacy #[id number], 170, cm, 09/20/20 16:03:00 EST, Height/Length Dosing, 87.5, kg, 09/20/20 16:03:00 EST, Weight Dosing Start Date: 09/20/20 Status: Ordered Completed/Discontinued Medications Medication Drug Class(es) Dates Sig (Normalized) Sig (Original) acetaminophen 325 mg / HYDROcodone bitartrate 5 mg oral tablet (12 sources) Opioid Agonist Start: 06-21-2019 End: 02-15-2023 take 1 tablet by mouth every six hours Hydrocodone-Acetami nophen (Aurora) 5-325 mg Tablet Discontinued 1 TAB PO Q6H June 21, 2019 12:00am February 15, 2023 9:46am Start: 11-12-2018 End: 01-30-2019 take 1 tablet by mouth every four to six hours Hydrocodone-Acetaminophen (Aurora) 5-325 mg tablet Discontinued 1 TAB PO [...] day(s), # 120 cap(s), Refills(s) 11, Pharmacy: [id number], 170, cm, 05/05/21 14:15:00 EDT, Height/Length Dosing, 83.1, kg, 05/05/21 14:15:00 EDT, Weight Dosing Start Date: 05/05/21 Stop Date: 04/30/22 Status: Ordered Start: 09-20-2020 take 2 capsules by m out four times daily Bentyl 10 mg Cap 20 mg = 2 cap(s), Oral, QID, # 20 cap(s), Refills(s) 0, Pharmacy: [facility] #[id number], 170, cm, 09/20/20 16:03:00 EST, Height/Length Dosing, 87.5, kg, 09/20/20 16:03:00 EST, Weight Dosing Start Date: 09/20/20 Status: Ordered dicyclomine (LISA TYL) 20 MG tablet Take 1 tablet by mouth Active take 1 tablet by ana th [...] 09, 2019 12:00am February 27, 2019 3:49pm losartan potassium 100 mg oral tablet (6 [...] TID, # 120 tab(s), Refills(s) 0, Pharmacy: [facility]/pharmacy #[id number], 170, cm, 04/13/21 15:38:00 EDT, Height/Length Dosing, 84.4, kg, 04/13/21 15:38:00 EDT, Weight Dosing Start Date: 04/13/21 Status: Ordered Start: 04-13-2018 take 1 tablet by [facility] four times daily Reglan 10 mg Tab 10 mg = 1 tab(s), Oral, QID, # 120 tab(s), Refills(s) 0, Pharmacy: [facility]/pharmacy #[id number], 170, cm, 07/22/22 14:33:00 [...] day(s), # 90 cap(s), Refills(s) 1, Pharmacy: [facility]/pharmacy #[id number], 170, cm, 04/14/22 14:53:00 [...] by mouth twice daily. 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, female] Onset: 02-16-2024 02-24-2021 Episodic Other disorders of stomach and duodenum (20 sources) Gastroparesis syndrome; Translations: [Gastroparesis] Onset: 04-14-2022 05-26-2021 Episodic Other disorders of stomach and duodenum (1 source) Gastroparesis; Translations: [Gastroparesis] Onset: 08-25-2023 Episodic Other endocrine disorders (4 sources) Hypoglycemia; Translations: [Hypoglycemia, unspecified] 06-20-2024 Chronic [...] unspecified] Onset: 05-06-2023 Episodic Other gastrointestinal disorders (11 sources) Dysphagia; Translations: [Dysphagia, unspecified] Onset: 08-15-2024 05-16-2023 Episodic Other gastrointestinal disorders (3 sources) Disorder of abdomen; Translations: [Peritoneal adhesions (postprocedural) (postinfection)] 04-26-2024 Episodic Other gastrointestinal disorders (3 sources) Peritoneal adhesions (postprocedural) (postinfection); Translations: [Peritoneal adhesions (postoperative) (postinfection)] 04-26-2024 Episodic Other gastrointestinal disorders (1 source) Other dysphagia; Translations: [Other dysphagia] Onset: 08-15-2024 Episodic Other injuries and conditions due to [...] Value Interpretation Reference Range Facility Glucose (Bld) [Mass/Vol]on 1 09-12-2023 Glucose Blood, POC 90 mg/dL [facility] - Hematology and Cell count[facility] 07-13-2024 HbA1c (Bld) [Mass fraction] 5.6 % [facility] No Panel Informationon 07-13 Interpretation and review of laboratory results Normal [facility] Glucose (Bld) [Mass/Vol]Orde red By: Beverly Clemons on 06-20-2024 Glucose Blood, POC 101 mg/dL [facility] Hematology and Cell countson 06-20-2024 HbA1c (Bld) [Mass fraction] 5.8 % [facility] No Panel InformationOrdered By: Beverly Clemons on 06-20-2024 [facility] Healthcare Office Visiton 05-14-2024 Follow-up visit [id number] Marly Cardoso 1970 F Date Provider Department Center 05/14/2024 [id number] KINCAID MICHAEL Macario [facility] Family History Problem Relation Age of Onset Heart attack Father Family Status - Relation Status Age at Father Level of Service:67024 [place] OFFICE/OUTPATIENT ESTABLISHED MOD MDM 30 MIN Reason for Visit and Comments: Hypertension [297140] - Patient here for 2 mo follow up. She was started on lisinopril 10mg daily at last visit. She presented to the ED last month for abdominal pain. EKG was done and showed bradycardia. Palpitations [531474] - Not as bad, still has them Shortness of Breath [933361] - Improving Normal [facility] Maury 05-11-2024 L Specimen: [id number] Received: 05/11/24 Status: XAVI Francis Num: [id number] Spec Type: Surgical Subm Dr: Jennie Ayon MD Tissues: A GASTRIC FOR HP (GASTRIC R/O H PYLORI) B Esophagus Biopsy (ESOPHAGUS BX R/O BARRETTS) Procedures: HE/4, Gross/Micro L4/2, H PYLORI Age/ Patient Sex Location Account Attending Physician Constantino Cardoso 53/F [id number] Jennie Ayon MD SPEC NUM: [id number] RECD: 05/11/24 STATUS: XAVI FRANCIS NUM: [id number] HAYDEN: 05/11/241 [facility] DR: Jennie Ayon MD ENTERED: 05/11/24 [facility] DR: SPEC TYPE: Surgical DEPT: S ENTERED BY: [id number] RECV BY: [id number] ORDERED: HE/4, Gross/Micro L4/2, H PYLORI ORDERED: HE/4, Gross/Micro L4/2, H PYLORI Supplemental Report Addendum 2 Entered: 05/18/24 Supplemental to add CPT code of immunostain: A, CPT: 06199 Addendum Signed (signature on file) Robby Smyth MD 05/18/241707 Addendum 1 Entered: 05/18/24 Supplemental for findings of H. pylori immunostain: A, -H. pylori immunostain with appropriate control is negative for identified Helicobacter organism or infection Specimen: [id number] Received: 05/11/24 Status: ALEXISBrit Francis Num: [id number] Spec Type: Surgical Subm Dr: Jennie Ayon MD Tissues: A GASTRIC FOR HP (GASTRIC R/O H PYLORI) B Esophagus Biopsy (ESOPHAGUS BX R/O BARRETTS) Procedures: HE/4, Gross/Micro L4/2, H PYLORI Patient: Constantino Cardoso [id number] (Continued) Specimen: [id number] Received: 05/11/24 (Continued) Supplemental Report (Continued) Signed (signature on file) Robby Smyth MD 05/17/24 1326 Specimen: [id number] Received: 05/11/24 Status: XAVI Francis Num: [id number] Spec Type: Surgical Subm Dr: Jennie Ayon MD Tissues: A GASTRIC FOR HP (GASTRIC R/O H PYLORI) B Esophagus Biopsy (ESOPHAGUS BX R/O BARRETTS) Procedures: HE/4, Gross/Micro L4/2, H PYLORI Patient: Constantino Cardoso [id number] (Continued) Specimen: [id number] Received: 05/11/24-1431 (Continued) Supplemental Report (Continued) Addendum Signed (signature on file) Donny-Nathan Smyth MD 05/18/24 1703 Pathological Diagnosis A, [...] are performed supporting the above interpretation Specimen: [id number] Received: 05/11/24 Status: XAVI Francis Num: [id number] Spec Type: Surgical Subm Dr: Jennie Ayon MD Tissues: A GASTRIC FOR HP (GASTRIC R/O H PYLORI) B Esophagus Biopsy (ESOPHAGUS BX R/O BARRETTS) Procedures: HE/4, Gross/Micro L4/2, H PYLORI Patient: Constantino Cardoso [id number] (Continued) Specimen: [id number] Received: 05/11/24 (Continued) Signed (signature on file) Robby Smyth MD 05/17/24 1326 Specimen: [id number] Rece (more content not included)... Normal [facility] Reminderson 04-09-2024 Reminders Reminders From: Ani Jackson To: EU - Administrative; Sent: 02/16/2024 09:54:18 EDT Show up: 03/05/2024 09:54:00 EDT Subject: Ambulatory Reminder Due Date/Time: 05/20/2024 09:54:00 EDT Reminder/Recall Patient needs scheduled for a 3 month f/u with [facility] in [place], due back mid May. LV FOR PATIENT TO CALL AND SCHEDULE APPT Pt called back and scheduled appt. Normal [facility] Office Visiton 03-19-2024 Follow-up visit [id number] Marly Cardoso 1970 F Date Provider Department Center 03/19/2024 [id number] KINCAID MICHAEL Mac[facility] Family History Problem Relation Age of Onset Heart attack Father Family Status - Relation Status Age at Father Level of Service:17120 [place] OFFICE/OUTPATIENT ESTABLISHED MOD MDM 30 MIN Normal [facility] Coding Summary.on 02-25-2024 Coding Summary. EZJUKdke02VYi1fOe+PG hlYWQ+P S2BVIRvC74dmAFfcL2lY1VSUIfO CbfcTQHBRRdCNnIxpjQqOA5ucOI jZXJu IC8+NZ0aBYZbVlhpkRWwl8N8cXN 4J34bhj2fHLemoOH4HNVdNzTjhh ljk2mmsXt2JIchAdppQkGy CLKemC12YLW6gF85Fz36eEQbzQI pw4ghlAf3HwOwLYSvAZD1gDynQL kxe1HaVOTsY28rpOEnx2C0 GRHmzZkovSKkMxOveTP6kI8aRKy fnokts2yldgryRcs1sg97jNHep3 S6pVD3Y9NuilE0ABRheRAr IaqlkQHLeT5khmits4okapzoTqV xDUNuQKm0MEd3NXErrVkxNpKwIF 85YFX4HZYicvIxE3JmXCHa qTpvJbT0l9R0Sn2LP3WHCtwiV1R NTUFSWTwvdGQ+DB03kp43K5SqWm luHss3THQfXXQ1tHI0qU5p VJQaPQezf1S5rJX9Y1OmvyWaor2 kt0ubDXDxJZlfQ18nfELoz0Q2DN DbtRR1WBBqoLtxIeWjdY31 Oyc+LQWrlKqxm5OjWvryc6fki7l oxGu3TavhGSQlqjSelMpeBGF2j6 AfGs6rHYWluDB4oRZ8aM9z LzKaGtG7SZcgG090JyQidPJbRdk lH74vZ3OvqEN+IVHmDjb3XSRvhN cwUP8qD4FySLCxwhdyfYBf nYdmZG7yBYFnlizhEHEmaZ5mABC aJ2f7BiPoYfV0VYkjG4MsEWOfdb mfLp16fZ0sVsAqKoD5AShv L3RjmjX7EXNgeORtALpaYTK1D59 tz7P8USXcITUvGXJ6iOE2pT2kxY lnbjogbGVmdDsgdmVydGlj DNazHTerS230PRKaiNvhVePkURh uZyBEYXRlOiAgMDYvMjIvMjAyND wvdGQ+ZHSaJBH4jEzbABJe nWVsEIycFf5itDcklWfsSG4zCUS zisehWZBijH6ePIWmkSAdhWcoOF 2rGIGszecxp504HfSjXUH9 PDDswPKrC8OgzO9rFjWwUOAhDNA fU4DbzRZtBEzhP391GKquLxH2BO SwljFdD3GaNHNgxRezJhP7 m4Q9Sj6Qa3ByezhaB8VyuZBtCjT yLxkxWXx2W3HmAgorpHM+PC90YW IhJQ01ERj4GDT9lHbmWGqv CNMkT4FfmK8lHsTpRUPlYDSsFmu +PHRhYmxlIHdpZHRoPScxMDAlJy ZrcQzbAK6xZl8bMPBlMGBw nKpdaETvOwHid4rcCBGoOYxaWJ6 wuHhtA0QheSB2QXPfs2e0Kx49W8 6xB2IkfLW+BUHdsRD4bXF5 eA7fLsDnFaI3HMemC222HaSowST pWhqri9krj8kwoYd1NbV1HLHatj ZkwEfaFZH9e7GnAj70T00r IHdpZHRoPSIxNSUiIHZhbGlnbj0 zzD9jVs7+ZYSntSF1pDP7nM6lZl DgGgF8FElfM961HsOieXPj Gchsy6slh9xfeYb8CyOlLGCaknO mkMijPUO4b7MbCc67Z5RlqCoaq1 EcXyc5fq21uQQds0U9tBK3 Y6VxLIFmqsjhhKUfjNsiZE8fNNC dgzpkVCYzkQ6kPTDtQ6h7HkDzAp F8ITkaV2ZoewA1DSUtlYAb WCEsqUTEcF1xdgujl8gzrojfBiV oOQLrVQo7QBh4CPJnyDwcGcFqPL G6PyQ3YPR3qMIsvF0lsYuc wtxqhG8kNss+QKF4zGWfhPBDRT2 lOjwvdGQ+PLRtGJO3oMqmMNinQW MjrN7xLUEcW5z8KvEnRqS8 FMkpI7CttpB8PRWiiYQlKYBopSO CmS0xryesi6wmbkdlMsZbQEIjES v4QUm4UACphNieMcEzEIS3 EbP4HRA4kJSkmH5asSdupajceW2 wOyc+TscviXhpUXA2PMr3N6GmBi e8DUMyrVssBX8miHCgQYuc Ln7ywRpgcGczKN1wPDCtegztu29 9WzCap5qmSUKwlRLfRHigAUE4Q6 1gu8N9ZPAsZYHtXAA5sWA5 rW5zvFilmougeWPbnYxpjjUheDr zZNqfZFoeX054WETxgHpsKfPtSR m9U5NvOio1HHMmlAwiLV8j oVExECqcZd0cbVpfwSwqSU1fSLD pibeux695KsPew0eiWODfiTViMT tcNWF7L77mc1S8LIXgEGKa OAW7wTM2uQ0ujGworymboJWbmIm zcqUysWtjQOieYKgxN078QRGuyD gvSpWiiNp6Z2MqEga8ZUGn dKerXC8taQEzMGorYa7zcDmcqZn aAM3bMNSidytwd770MgTgs1sdGT JllTUzVLgfDKL5L58zq8T7 LNMiAXRjILC0iNA2lJ2rkXeylec gbGVmdDsgdmVydGljYWwtYWxpZ2 46IHRvcDsnPlBhdGllbnQg UPcbJLg7L1MbGaptvAM+ZV51UUU aJT62gDIjbNUlo4hgiSi7MsIwIH LdJFK6gPeqESakj0VeQZKl V38ycHFob8M6UFKojKzhkQIbWbQ uzWW8sW8hHKyorlanm9lkpridOi ggo1iduu85uX60U41lOOko ZSAfMSMzUGKoFYDqlXssjf7hbL6 wIi8+NANrqLC1yZB1mE0rYZRsCr N0EBgqB308UlXosFWtJbjt p5rci3wccLk7BsV5MGZqshHvaQl gJHA9z5NzKb80K11yJAlzWCFxAK ViFDKpZEIfdJwxti5wzF0x Ii8+KCVczMT3oCS7mV3kXeKnAvL 2SNpbX350MeVotFKlVpoxO31aB1 JvdXA+UDPuGos9ZRDriYoy IW8kcVXpNFdpDn7uYLH5YfTiGoN fYYmkB0CcPCAeliqqsutouZR1AU VcTGBztX26Kq1tsAriMRIk vRKMjR2fjljpz8ldycxcHqVuCKE fTLy4IOj7NIOjyTjoEoLaEOJ0Br L8MSI6gIVyyM7weThquhvc qW9mE6AgDFBcpakjRy05bN4pPtT qVrH9YRunCzc+D3CCXZfwJOVPOQ yPOE2ZDALNER22AP10sYVj i1H9kDX4F0QtBWTatsbmhzxqxEH 9ABGgBCDrvU90aYPlBGboVf8an0 Q4t833ANFjIOJayM15Ko4k xQkxQVLstEOZkQ1vfpous7eizfx dBjQkFNTbVOy0YFt4HFCcxRqeEp PiFXO5FsQ1BVR6xVTdcL2n pUtxgaposK1jGgv+MDkvMjMvMTk 3MDwvdGQ+FJVzYLN6jVvxJMftAD DxiZ3gQHBwU3f4XyBhOpV6 QLkqO2BcPGKlgnklQh15vT0nFmU oRcF0HRhzT5PnwiT6EHLphXBcPM mqBOY4N61pq2T3MMHqRNDu SFC2nIN2tS1pzLvvrotjrUPcqHq qzgLeeQdtIIecCOlzM258XAVnqH jlSdAwLQlpHERkIL54HU26 aYQqx6W6sIP0O6GlRVOphwplihm ctDY8WFEeGNXnfQ22eLSjHQlxZz 7se3P8o196QTMwWFNgiA15 Mm7uaDanXYDwdLHJtJ5marjnh5t crkghGvNsOKLnMIl2RZx7WVBslH omSgPhNZT3QtA7MXL8cZUs xS9pkPrtesnrmS5fBjd+RmVtYWx pFR54YX94lQCyn2V4jBH0B2BsYO VwncvtavfgmMP2IEImQZYk yN89yOCaAPxyNn5bq6P8f205NIN pKUYcxK59Ax1diYqkDIGhbGOJwH 8dkjuns0vpormgPfWvGDRx EXh3LRe5RHDgrMliGgWhDCK9QiA 8GOC0wVPmdX6pqKecipywcG0sSf c+WFOyQHCuf4Ztq0KaDM17 SC81J6OdCtqyfQOlaGS+PHRhYmx lIHdpZHRoPScxMDAlJyBzdHlsZT 9qEo8zDKWoTZQqzRmkeOTk FoUis2pxLVBgFXgnNL5cfXhjS3M egPV8TTNyx0a7Gj07M62zY3PjyO A+YZEynCA4uQB6pT6nZkGz RiI2WYliV213XuJjcTFrXqkbo2d mx4fskSa8KnJrFYPjwiMdmTkrKL A7f3BfHu71L54vGQmwRFRi DDRgQAExVLUuxDcnwc9vtC6qLh5 +KNWhcQL6zGB9nI0wJoRbLeE2NU byJ114PsHboFVfZrlfH08e V2CvaWT+ZJKaRdu0DRPqsSubUS7 jnNGyKEwlCq9dSKO5ImJvByLcZM iqE6PaWSHehrlfiofwiVN4 GSQzBYBshZ97Hj8moGktPx4bDZA kUJP5DQDzvWUzW1NgvM6iPxBcQR LaMCAjU8LjzJFeJSzqS403 NBqsEtR4LRIjwsJtQ5JbBMIydMz vBoS7h3G5Ij9UqSvwkRZrLC3xKe LpFXc4Q3MsUfb9QINgvKpp YN3beOLsVSpuIe0jkAvakVkkXY3 cTIWyicaea787WpPdl5mtFCCwwM CsAPnrZFL4O36ex3I0DVRg TWRvGVQ6gON4cY3fuUhwgfyghPS weOpsorIypUccMSrmQEwrW358PD OcrJmzYeLHOmc6F7FiDec2 WWOfuMnuMK6csDKcINvhWa3yxXq luNwuYE1bVCIjwkgzo198FbTmv2 wlLAYjhWQgNTrcVQO2P62w i7O6RXFhQAEjHUE3dVT5xR3cwEt nbjogbGVmdDsgdmVydGljYWwtYW hcD916AKSbnIvzCz6QJfu1 Z9LbWzm8PNPqwQruHB9pnFAgFYq fXc3ozHieaPrgWK3yYVLoxqxrn2 47AvTao3vjFKCwpSXfBJxw VBK7O80de6D5ZPBnNPAvYFG7zKO 1qU1zlAkicbmynJNscNohrxMdaB cdPIuaVAmfJ073MGGctFwv PlBheWVyOjwvdGQ+MG87nu24R8A zIrkuNew0OXFcVUR9pZC9rO3yCN EqASbel4Z1vFY3I6MfjoOh om9sp7urHPOxX (more content not included)... Normal [facility] Patient Educationon 02-21-20 Patient Education Obstetrics [...] this condition includes: ? Antibiotic medicine. ? Pufb-whi-tqrqnkp medicines to treat discomfort. ? Drinking enough [...] these instructions at home: Medicines ? Take xfvk-vnr-lsudfdy and prescription medicines only as told by [...] Document Revie (more content not included)... Normal [facility] Urology Office/Clinic Noteon 02-21-2024 Urology Office/Clinic Note [...] with voice recognition artificial intelligence software, specifically Arecont Vision, Preedo and or BeehiveID. Substitutions may have occurred due to the [...] yes avoids baths/hot tubs yes avoids scented WORKERS' COMPENSATION MEDIATOR products yes urinates after sexual activity yes [...] of patients. (more content not included)... Normal [facility] Comment on above: Result Comment: Elec [...] Locations R1: This test was performed at: [facility], [address] [place] [address], [facility]- , , [facility] Comment on above: Performed By: #### 2 [id number] #### [facility] [address] [place] [address] Lab Reportson 02-17-2024 Lab Reports [id number]#1.00TIFF [facility] Lab Reports [id number]#1.00TIFF [facility] Lab Reports [id number]#1.00TIFF [facility] Lab Reports [id number]#1.00TIFF [facility] RAD - Ultrasound Reporton RAD - Ultrasound Report [id number]#1.00TIFF Normal [facility] Screenson 02-17-2024 Screens [id number]#1.00TIFF Normal [facility] URINALYSISOrdered By: SYSTEM SYSTEM on 02-16-2024 Bilirubin Ql (U) Negative Normal Negativemg/ dL [facility] UA Auto SS Clarity (U) Clear (02/16/24 10:01 AM) Normal Clear [facility] UA Auto SS Color (U) Light-Yellow 1 (02/16/24 10:01 AM) Normal Yellow [facility] UA Auto SS Comment on above: Interpretive Data: M icroscopic readings are only performed on those samples that meet specific criteria set forth by [facility]. Epithelial cells.squamous Auto (Urine sed) [#/Area] 0-2 graded/HPF Invalid Interpretation Code [facility] UA Auto SS Glucose Ql (U) Negative Normal Negativemg/ dL [facility] UA Auto SS Hemoglobin Auto test strip [...] Normal Negativemg/ dL [facility] UA Auto SS pH (U) 5.5 *NA* (02/16/24 10:01 AM) Invalid Interpretation Code 5.0 - 9.0 [facility] UA Auto SS Protein Ql (U) Negative Normal Negativemg/ dL [facility] UA Auto SS RBC Ql (U) 0-3 graded/HPF Normal 0-3graded/H PF [facility] UA Auto SS Specific gravity (U) [Rel density] 1.021 *NA* (02/16/24 10:01 AM) Invalid Interpretation Code 1.005 - 1.030 [facility] UA Auto SS Urobilinogen (U) [Mass/Vol] Negative Normal Negativemg/ dL [facility] UA Auto SS WBC Auto (Urine sed) [#/Area] 0-5 graded/HPF Normal 0-5graded/H PF [facility] UA Auto SS URINALYSISOrdered By: Kimberly Santos on 02-16-2024 UA Spec Desc Clean Catch (02/16/24 10:01 AM) Normal [facility] UA Auto SS Urinalysis with Microon 02-03 Bilirubin Ql (U) Negative Normal Negative [facility] Comment on above: Performed By: #### 4 [id number] #### [facility] [address] [place] [address] Clarity (U) Clear Normal Clear [facility] Comment on above: Performed By: #### 4 [id number] #### [facility] [address] [place] [address] Color (U) Light-Yellow Normal Yellow [facility] Comment on above: Result Comment: Micr oscopic readings are only performed on those samples that meet specific criteria set forth by [facility]. Performed By: #### 4 [id number] #### [facility] [address] [place] [address] Epithelial cells.squamous Auto (Urine sed) [#/Area] 0-2 Invalid Interpretation Code [facility] Comment on above: Performed By: #### 4 [id number] #### [facility] [address] [place] [address] Glucose Ql (U) Negative Normal Negative [facility] Comment on above: Performed By: #### 4 [id number] #### [facility] [address] [place] [address] Hemoglobin Auto test strip (U) [Mass/Vol] 1+ mg/dL Abnormal Negative [facility] Comment on above: Performed By: #### 4 [id number] #### [facility] [address] [place] [address] Ketones Auto test strip Ql (U) Negative Normal Negative [facility] Comment on above: Performed By: #### 4 [id number] #### [facility] [address] [place] [address] Leukocyte esterase Auto test strip Ql (U) 75 Morgan/uL Abnormal Negative [facility] Comment on above: Performed By: #### 4 [id number] #### [facility] [address] [place] [address] Mucus Auto Ql (U) Trace Normal Negative [facility] Comment on above: Performed By: #### 4 [id number] #### [facility] [address] [place] [address] Nitrite Auto test strip Ql (U) Negative Normal Negative [facility] Comment on above: Performed By: #### 4 [id number] #### [facility] [address] [place] [address] pH (U) 5.5 [pH] Invalid Interpretation Code 5.0-9.0 [facility] Comment on above: Performed By: #### 4 [id number] #### [facility] [address] [place] [address] Protein Ql (U) Negative Normal Negative [facility] Comment on above: Performed By: #### 4 [id number] #### [facility] [address] [place] [address]697 RBC Ql (U) 0-3 Normal 0-3 [facility] Comment on above: Performed By: #### 4 [id number] #### [facility] [address] [place] [address] Specific gravity (U) [Rel density] 1.021 Invalid Interpretation Code 1.005-1.030 [facility] Comment on above: Performed By: #### 4 [id number] #### [facility] [address] [place] [address] Urobilinogen (U) [Mass/Vol] Negative Normal Negative [facility] Comment on above: Performed By: #### 4 [id number] #### [facility] [address] [place] [address] WBC Auto (Urine sed) [#/Area] 0-5 Normal 0-5 [facility] Comment on above: Performed By: #### 4 [id number] #### [facility] [address] [place] [address] Type of Urine collection method Clean Catch Normal [facility] Comment on above: Performed By: #### 4 [id number] #### [facility] [address] [place] [address] Office Visiton 02-15-2024 Follow-up visit [id number] Marly Cardoso marytomás Yovanny 1970 F Date Provider Department Center 02/15/2024 [id number] LANDRYJAMES MICHAEL [facility] Family History Problem Relation Age of Onset Heart attack Father Family Status - Relation Status Age at Father Level of Service:09881 [place] OFFICE/OUTPATIENT NEW MODERATE MDM 45 MINUTES Normal [facility] ANES POSTPROC EVALon 023 ANES POSTPROC EVAL HNO ID: [id number] Author: Carlota Jeffrey MD Service: ? Author Type: Anesthesiologist Type: Anesthesia Postprocedure Evaluation Filed: 08/25/2023 5:35 PM Note Text: POST ANESTHESIA EVALUATION NOTE : 1970 Procedure Summary Date: 08/25/23 Room / Location: Gastroenterology Anesthesia Start: 1444 Anesthesia Stop: 155 Procedure: EGD - THERAPEUTIC, EUS, OR TUBE INTERVENTIONS Diagnosis: Gastroparesis (OTHER) Scheduled Providers: Marques Bradley MD; Carlota Jeffrey MD; Vanessa Mcmillan APRN.SYSTEMS DEVELOPMENT CONSULTANT Responsible Provider: Carlota Jeffrey MD Anesthesia Type: [...] August 25, 2023 TIME: 5:35 PM CSN: [id number] Normal [facility] ANES PRE-OPon 08-25-2023 ANES PRE-OP HNO ID: [id number] Author: Carlota Jeffrey MD Service: ? Author [...] August 25, 2023 TIME: 11:46 AM CSN: [id number] Normal [facility] HISTORY PHYSICALon 3 HISTORY PHYSICAL HNO ID: [id number] Author: Gavi Bourgeois MD Service: General Surgery [...] August 25, 2023 TIME: 6:57 AM Normal [facility] NURSING PROGon 08-25-2023 NURSING PROG HNO ID: [id number] Author: Melody Walter, RN Service: Nursing Author [...] None Electronically Signed By: Melody Walter RN [facility] NURSING PROG HNO ID: [id number] Author: Pamela Osuna RN Service: ? Author [...] By: Pamela Navarro RN [facility]N Telephone (GENBMI) CONSTANTINO CARDOSO ([id number]) 1970 F Date Time Provider Department 07/22/23 [...] Encounter Status:Closed by EVELYN BLACK on 07/22/23 [facility] ANES POSTPROC EVALon 023 ANES POSTPROC EVAL HNO ID: [id number] Author: Sly Carter MD Service: ? Author [...] Scheduled Providers: Marques Bradley MD; Amanda Bernard APRN.SYSTEMS DEVELOPMENT CONSULTANT; Sly Carter MD Responsible Provider: Sly Carter [...] PACU/ICU/floor team. Anesthesia Observations No Documentation SIGNATURE: lSy Carter MD PATIENT NAME: Constantino Cardoso DATE: July 14, 2023 TIME: 12:26 PM CSN: [id number] Normal [facility] ANES PRE-OPon 07-14-2023 ANES PRE-OP HNO ID: [id number] Author: Sly Carter MD Service: ? Author Type: Anesthesiologist Type: Anesthesia Preprocedure Evaluation Filed: 07/14/2023 9:19 AM Note Text: ANESTHESIOLOGY DAY OF SURGERY NOTE : 1970 Procedure Information Date/Time: 07/14/23929 Scheduled providers: Marques Bradley MD; Amanda Bernard APRN.SYSTEMS DEVELOPMENT CONSULTANT; Sly Carter MD Procedure: EGD - THERAPEUTIC, [...] July 14, 2023 TIME: 9:11 AM CSN: [id number] Normal [facility] EGD - THERAPEUTIC, EUS, OR T UBE INTERVENTIONSon 07-14-2023 [facility] HISTORY PHYSICALon 3 HISTORY PHYSICAL HNO ID: [id number] Author: Raúl Quintero MD Service: General Surgery [...] medications for this visit. REVIEW OF SYSTEMS: POULTRY HATCHERY MAN: Negative for CVA, Negative for TIA Respiratory: [...] DATE: July 14, 2023 TIME: 9:40 AM [facility] NURSING PROGon 07-14-2023 NURSING PROG HNO ID: [id number] Author: Mónica Spaulding RN Service: Nursing Author Type: Registered Nurse Type: Nursing Progress Note Filed: 07/14/2023 11:21 AM Note Text: 1121: Dr. Mehrdad Carter paged : Patient Constantino Cardoso in post bed 10: Complaining of 06/14 abdominal pain (gas), mild nausea. Any further orders? Thanks! Mari Spaulding RN BSN [facility] NURSING PROG HNO ID: [id number] Author: Mónica Spaulding RN Service: Nursing Author [...] Signed By: Mónica Spaulding RN BSN [facility] NURSING PROG HNO ID: [id number] Author: Candace Jaramillo RN Service: ? Author [...] Candace Jaramillo RN In Department: GASTROENTEROLOGY Normal [facility] SURGICAL PATHOLOGYon 023 ADDENDUM 1: Normal [facility] Comment on above: Order Comment: Speci men Type: TISSUE SPECIMENOrdering Facility: [facility] Address: [address] [place] [address] Result Comment: Give n the background of chronic gastritis a Helicobacter pylori immunostain was performed on block A and is negative for Helicobacter pylori organisms. AEB 07/20/2023 Laboratory Developed Test (LDT) Disclaimer: Performance characteristics of immunohistochemical, immunofluorescent and chromogenic in-situ hybridization tests have been determined by the performing laboratory within [facility]???s Orestes Amador [facility] Pathology and Laboratory Medicine [place] ([facility], [facility], [facility], [facility], [facility], [facility], or [facility]) in a manner consistent with [...] at 9:30 AM Performed By: #### S ####[facility] LABCLIA [id number] [place] [address] [place] CASE REPORT Normal [facility] Comment on above: Order Comment: Speci men Type: TISSUE SPECIMENOrdering Facility: [facility] Address: [address] [place] [address] Result Comment: Surg [facility] Pathology Report Case: [id number] Authorizing Provider: Marques Bradley MD Collected: 07/14/2023 10:42 AM Ordering Location: Gastroenterology Received: 07/14/2023 07:34 PM Pathologist: Marilou Zacarias MD Specimen: STOMACH BIOPSY, R/O H.Pylori Performed By: #### S ####[facility] LABCLIA [id number] [address] [place] DIAGNOSIS COMMENT Immunohistochemical stain for Helicobacter pylori is pending and will be reported as an addendum. Normal [facility] Comment on above: Order Comment: Speci men Type: TISSUE SPECIMENOrdering Facility: [facility] Address: [address] [place] [address] Performed By: #### S ####[facility] LABIA [id number] [address] OF [facility] FINAL DIAGNOSIS Normal [facility] Comment on above: Order Comment: Speci men Type: TISSUE SPECIMENOrdering Facility: [facility] Address: [address] [place] [address] Result Comment: Velma scott, biopsy: - Chronic inactive gastritis. See comment. AEB/dkm 07/18/2023 Performed By: #### S ####[facility] LABIA [id number] [address] FINAL PERFORMING LAB Normal [facility] Comment on above: Order Comment: Speci men Type: TISSUE SPECIMENOrdering Facility: [facility] Address: [address] [place] [address] Result Comment: Diag nostic interpretation performed at [facility], [address] [facility] [place] [address] CLIA# [id number] [employer] Manager: Maurisio Ritchie M.D. Performed By: #### S ####[facility] LABIA [id number] [address] [place] GROSS DESCRIPTION Normal [facility] Comment on above: Order Comment: Speci men Type: TISSUE SPECIMENOrdering Facility: [facility] Address: [address] [place] [address], [place] [address] Result Comment: A. Maria C TOMAPRIL BIOPSY Received in formalin are two pieces of hager, soft tissue aggregating to 0.5 x 0.2 x 0.2 cm. Totally submitted in one cassette. Two Gross examination performed at [facility], [address] [place] [id number] KK July 14, 2023 11:10 PM Performed By: #### S ####[facility] LABCLIA [id number] [address] [id number] [id number] [facility] Lipase Levelon 06-06-2023 Lipase [Catalytic activity/Vol] 33 U/L Normal 13-58 [facility] Comment on above: Performed By: #### 2 [id number] #### [facility] [address] [address] CNPNon 05-27-2023 CNPN Telephone (GENBMI) CONSTANTINO CARDOSO ([id number]) 1970 F Date Time Provider Department 05/27/23 EVELYN BLACK GENBMI During your visit today, [...] Encounter Status:Closed by EVELYN BLACK on 05/27/23 [facility] GASTRIC EMPTYING SOLIDon 05-26-2023 IN GASTRIC EMPTYING SOLID * * *Final Report* * * DATE OF EXAM: May 26 2023 11:11AM [place] [id number] - IN GASTRIC EMPTYING SOLID / PROCEDURE REASON: Nausea [...] RATE OF GASTRIC EMPTYING OF SOLID MEAL. Credit Card Specialist: MELINDA Transcribe Date/Time: May 26 2023 11:18A Dictated by : SILVANO WELSH MD This examination was interpreted and the report reviewed and electronically signed by: SILVANO WELSH MD on May 26 2023 11:18AM EST [id number] Normal [facility] CNNURSEon 05-25-2023 [facility] (GA[facility]N) CONSTANTINO CARDOSO ([id number]) 1970 F Date Time Provider Department 05/25/23 8:30 AM NURSE GI LAB 2 GASTID During your visit today, we recorded the following information about you: Pedro Gonzalez LPN 05/25/2023 4:15 PM Signed Name: Constantino Cardoso CCF#: [id number] Date: 05/25/2023 ESOPHAGEAL MANOMETRY TEST Indication: Nausea [...] .Pedro Gonzalez LPN Referring Provider: MARQUES BRADLEY [[id number]] Allergies As of Date: 05/25/2023 Noted Allergy Reaction FLEXERIL (CYCLOBENZAPRINE) 04/28/2018 7 - Swelling PENICILLIN 04/28/2018 7 - Swelling Date Reviewed: 05/06/2023 Reviewed by: Judy Michaels MA - Fully Assessed Reason for Visit: Procedure [88] Cmt: Manometry Esophageal Visit Diagnosis:Nausea [R11.0] Order(s):MANOMETRY ESOPHAGEAL [37109NKR] Order #: [id number] Prescriptions as of 05/25/2023 - dicyclomine (BENTYL) [...] Encounter Status:Closed by PEDRO GONZALEZ on 05/25/23 [facility] 05-16-2023 CNPN Telephone (GENBMI) CONSTANTINO CARDOSO ([id number]) 1970 F Date Time Provider Department 05/16/23 [...] Status:Closed by EVELYN BLACK on 05/16/23 [facility] CNOVon 05-06-2023 CNOV Office Visit (GENBMI ) CONSTANTINO CARDOSO ([id number]) 1970 F Date Time Provider Department 05/06/23 [...] for internal providers or letter via the [employer] for external providers. Chief Complaint: [...] Time: 8:15 AM Referring Provider: IMER CHERRY [[id number]] Allergies As of Date: 05/06/2023 Noted Allergy Reaction (more content not included)... [facility] CONSTANTINO CARDOSO ([id number]) 1970 F Date Time Provider Department 05/02/23 EVELYN BLACK During your visit today, we recorded the following information about you: Evelyn Black, RN 05/04/2023 1:55 PM Addendum BMI SPECIALTY CARE COORDINATION TELEPHONE ENCOUNTER Chief complaint AND duration dysphagia. Type of procedure: hernia repair hiatal with Dr. MORTENSEN in [place] February of 2019. Sending OP notes Nursing assessment (subjective/objective) . pain in chest area and getting worse, hard to breathe c/o nausea and oral intolerance, using miralax for BM Went to [place] ED March 2023 who told her she needed a stent in her heart..but her c/o were difficulty swallowing and sent pt home and referred her to [facility] and was admitted for almost a [...] HHR a year later @ OSH in [place] Recommendation: appt after records obtained, encouraged small [...] Encounter Status:Closed by EVELYN BLACK on 05/02/23 [facility] 04-26-2023 CNPN Telephone (GENBMI) CONSTANTINO CARDOSO ([id number]) 1970 F Date Time Provider Department 04/26/23 [...] Encounter Status:Closed by EVELYN BLACK on 04/26/23 [facility] 04-18-2023 CNPN Telephone (GENSolveDirect Service ManagementI) CONSTANTINO CARDOSO ([id number]) 1970 F Date Time Provider Department [facility] During your visit today, we recorded the following information about you: Evelyn Black, RN 04/18/2023 2:17 PM Signed BMI SPECIALTY CARE COORDINATION TELEPHONE ENCOUNTER Contacted pt regarding a referral from Dr Martinez's office. [facility] and call back number. 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 Visit: Baccarat Manager - Other [3602] Prescriptions as of 04/18/2023 [...] Encounter Status:Closed by EVELYN BLACK on 04/18/23 [facility] 04-07-2023 CNPN Telephone (GASTSP) CONSTANTINO CARDOSO ([id number]) 1970 F Date Time Provider Department 04/07/23 MARTINEZ, GUILLERMO S GASTSP During your visit today, we recorded the [...] Status:Closed by YANCY LOPEZ on 04/07/23 [facility] Alanine aminotransferase [En zymatic activity/volume] in Serum or PlasmaOrdered By: Pete Thakkar on 03-23-2023 ALT [Catalytic activity/Vol] 11 U/L 7-52 [facility] Albumin [Mass/volume] in Ser um or Plasma by Bromocresol green (BCG) dye binding methoOrdered By: Pete Thakkar on 03-23-2023 Albumin BCG dye [Mass/Vol] 4.1 g/dL 3.5-5.7 [facility] Alkaline phosphatase [Enzyma tic activity/volume] in Serum or PlasmaOrdered By: Pete Thakkar on 03-23-2023 ALP [Catalytic activity/Vol] 115 U/L 34-104 [facility] Aspartate aminotransferase [ Enzymatic activity/volume] in Serum or PlasmaOrdered By: Pete Thakkar on 03-23-2023 AST [Catalytic activity/Vol] 15 U/L 13-39 [facility] Automated erythrocytes count in urine sediment (number/area)Ordered By: Pete Thakkar on 03-23-2023 RBC Auto (Urine sed) [#/Area] 0-1 [HPF] 0-4 [facility] Automated leukocytes count i n urine sediment (number/area)Ordered By: Pete Thakkar on 03-23-2023 WBC Auto (Urine sed) [#/Area] 0-1 [HPF] 0-4 [facility] Basophils Auto (Bld) [#/Vol] Ordered By: Pete Thakkar on 03-23-2023 Basophils (Bld) [#/Vol] 0.1 10*3/uL 0.0-0.2 [facility] Basophils/100 WBC Auto (Bld) Ordered By: Pete Thakkar on 03-23-2023 Basophils/100 WBC (Bld) 1.0 % . [facility] Bilirubin Test strip Ql (U)O rdered By: Pete Thakkar on 03-23-2023 Bilirubin Ql (U) Negative Negative [facility] Bilirubin.direct [Mass/volum e] in Serum or PlasmaOrdered By: Pete Thakkar on 03-23-2023 Bilirubin.direct [Mass/Vol] 0.10 mg/dL 0.03-0.18 [facility] Bilirubin.total [Mass/volume ] in Serum or PlasmaOrdered By: Pete Thakkar on 03-23-2023 Bilirubin [Mass/Vol] 0.3 mg/dL 0.3-1.0 [facility] Calcium [Mass/volume] in Ser um or PlasmaOrdered By: Pete Thakkar on 03-23-2023 Calcium [Mass/Vol] 9.0 mg/dL 8.6-10.3 [facility] Carbon dioxide, total [Moles /volume] in Serum or PlasmaOrdered By: Pete Thakkar on 03-23-2023 CO2 [Moles/Vol] 24.5 mmol/L 21.0-31.0 [facility] Chloride [Moles/volume] in S cristine or PlasmaOrdered By: Pete Thakkar on 03-23-2023 Chloride [Moles/Vol] 111 mmol/L 98-107 [facility] Color Auto (U)Ordered By: Shoaib Thakkar on 03-23-2023 Color (U) Yellow Yellow [facility] Creatinine [Mass/volume] in Serum or PlasmaOrdered By: Pete Thakkar on 03-23-2023 Creatinine [Mass/Vol] 0.72 mg/dL 0.60-1.20 [facility] Eosinophils Auto (Bld) [#/Vo l]Ordered By: Pete Thakkar on 03-23-2023 Eosinophils (Bld) [#/Vol] 0.3 10*3/uL 0.0-0.45 [facility] Eosinophils/100 WBC Auto (Bl d)Ordered By: Pete Thakkar on 03-23-2023 Eosinophils/100 WBC (Bld) 5.0 % . [facility] Erythrocyte distribution wid th Auto (RBC) [Ratio]Ordered By: Pete Thakkar on 03-23-2023 Erythrocyte distribution width (RBC) [Ratio] 13.6 % 11.9-15.3 [facility] Globulin Calc (S) [Mass/Vol] Ordered By: Pete Thakkar on 03-23-2023 Globulin (S) [Mass/Vol] 2.9 g/dL [facility] Glucose [Mass/volume] in Ser um or PlasmaOrdered By: Pete Thakkar on 03-23-2023 Glucose [Mass/Vol] 79 mg/dL 70-100 [facility] Comment on above: ADA recommended refe rence rangeRandom Glucose Reference Range is dependent on time and content of last meal. Glucose of more than 200 mg/dL in a nonstressed, ambulatory subject supports the diagnosis of Diabetes Mellitus. Hematocrit Auto (Bld) [Volum e fraction]Ordered By: Pete Thakkar on 03-23-2023 Hematocrit (Bld) [Volume fraction] 35.7 % 34.0-46.4 [facility] Hemoglobin [Mass/volume] in BloodOrdered By: Pete Thakkar on 03-23-2023 Hemoglobin (Bld) [Mass/Vol] 12.0 g/dL 11.8-15.4 [facility] Ketones Auto test strip (U) [Mass/Vol]Ordered By: Pete Thakkar on 03-23-2023 Ketones (U) [Mass/Vol] Negative Negative [facility] Laboratory - UrinalysisOrder ed By: Pete Thakkar on 03-23-2023 Hyaline casts LM Ql (Urine sed) None seen [LPF] 0-8 [facility] Leukocytes [#/volume] correc jun for nucleated erythrocytes in Blood by Automated counOrdered By: Pete Thakkar on 03-23-2023 WBC corrected for nucl RBC Auto (Bld) [#/Vol] 6.3 10*3/uL 3.8-11.6 [facility] Lipase [Enzymatic activity/v olume] in Serum or PlasmaOrdered By: Pete Thakkar on 03-23-2023 Lipase [Catalytic activity/Vol] 32.0 U/L 11.0-82.0 [facility] Lymphocytes Auto (Bld) [#/Vo l]Ordered By: Pete Thakkar on 03-23-2023 Lymphocytes (Bld) [#/Vol] 2.3 10*3/uL 1.00-4.8 [facility] Lymphocytes/100 WBC Auto (Bl d)Ordered By: Pete Thakkar on 03-23-2023 Lymphocytes/100 WBC (Bld) 36.1 % . [facility] MCH Auto (RBC) [Entitic mass ]Ordered By: Pete Thakkar on 03-23-2023 MCH (RBC) [Entitic mass] 29.2 pg 24.7-34.3 [facility] MCHC Auto (RBC) [Mass/Vol]Or dered By: Pete Thakkar on 03-23-2023 MCHC (RBC) [Mass/Vol] 33.7 g/dL 32.0-35.0 [facility] MCV Auto (RBC) [Entitic vol] Ordered By: Pete Thakkar on 03-23-2023 MCV (RBC) [Entitic vol] 86.7 fL 80-100 [facility] Monocyte distribution width [Entitic volume] in Blood by AutomatedOrdered By: Pete Thakkar on 03-23-2023 Monocyte distribution width Auto (Bld) [Entitic vol] 16.44 % 0.00-20.00 [facility] Monocytes Auto (Bld) [#/Vol] Ordered By: Pete Thakkar on 03-23-2023 Monocytes (Bld) [#/Vol] 0.5 10*3/uL 0.0-0.8 [facility] Monocytes/100 WBC Auto (Bld) Ordered By: Ptee Thakkar on 03-23-2023 Monocytes/100 WBC (Bld) 7.7 % . [facility] Neutrophils Auto (Bld) [#/Vo l]Ordered By: Pete Thakkar on 03-23-2023 Neutrophils (Bld) [#/Vol] 3.2 10*3/uL 1.8-7.7 [facility] Neutrophils/100 WBC Auto (Bl d)Ordered By: Pete Thakkar on 03-23-2023 Neutrophils/100 WBC (Bld) 50.2 % . [facility] Nitrite Test strip Ql (U)Ord ered By: Pete Thakkar on 03-23-2023 Nitrite Ql (U) Negative Negative [facility] No Panel InformationOrdered By: Pete Thakkar on 03-23-2023 Estimated GFR (CKD-EPI) > 60.0 mL/Min [facility] Creatinine Clearance (Chem 105.27 [facility] Nucleated erythrocytes [Pres ence] in Blood by Automated countOrdered By: Pete Thakkar on 03-23-2023 Nucleated RBC Auto Ql (Bld) 0.1 /100{WBC} 0-0.5 [facility] Platelet mean volume Auto (B ld) [Entitic vol]Ordered By: Pete Thakkar on 03-23-2023 Platelet mean volume (Bld) [Entitic vol] 7.6 fL 6.3-10.7 [facility] Platelets Auto (Bld) [#/Vol] Ordered By: Pete Thakkar on 03-23-2023 Platelets (Bld) [#/Vol] 357 10*3/uL 150-450 [facility] Potassium [Moles/volume] in Serum or PlasmaOrdered By: Pete Thakkar on 03-23-2023 Potassium [Moles/Vol] 3.6 mmol/L 3.5-5.1 [facility] Protein Auto test strip (U) [Mass/Vol]Ordered By: Pete Thakkar on 03-23-2023 Protein (U) [Mass/Vol] Negative Negative [facility] Protein [Mass/volume] in Ser um or PlasmaOrdered By: Pete Thakkar on 03-23-2023 Protein [Mass/Vol] 7.0 g/dL 6.4-8.9 [facility] RBC Auto (Bld) [#/Vol]Ordere d By: Pete Thakkar on 03-23-2023 RBC (Bld) [#/Vol] 4.12 10*6/uL 3.60-5.00 [facility] Serum or plasma albumin/glob ulin mass ratioOrdered By: Pete Thakkar on 03-23-2023 Albumin/Globulin [Mass ratio] 1.4 {ratio} [facility] Serum or plasma anion gap de terminationOrdered By: Pete Thakkar on 03-23-2023 Anion gap [Moles/Vol] 10.1 mmol/L 6.0-15.0 [facility] Serum or plasma non-glucuron idated bilirubin measurement (mass/volume)Ordered By: Pete Thakkar on 03-23-2023 Bilirubin.indirect [Mass/Vol] 0.2 mg/dL [facility] Sodium [Moles/volume] in Ser um or PlasmaOrdered By: Pete Thakkar on 03-23-2023 Sodium [Moles/Vol] 142 mmol/L 136-145 [facility] Specific gravity Auto test s trip (U) [Rel density]Ordered By: Pete Thakkar on 03-23-2023 Specific gravity (U) [Rel density] 1.048 1.001-1.030 [facility] Squamous epithelial cells de tection in urine sediment by light microscopyOrdered By: Pete Thakkar 03-23-2023 Epithelial cells.squamous LM Ql (Urine sed) None seen [HPF] 0-2 [facility] Troponin I.cardiac [Mass/vol ume] in Serum or Plasma by Detection limit <= 0.01 ng/Ordered By: Pete Thakkar on 03-23-2023 Troponin I.cardiac DL <= 0.01 ng/mL [Mass/Vol] 12.2 pg/mL 0.0-15.0 [facility] Urea nitrogen [Mass/volume] in Serum or PlasmaOrdered By: Pete Thakkar on 07-19-2023 Urea nitrogen [Mass/Vol] 24 mg/dL 03-29 [facility] Urine bacteria detection by automated methodOrdered By: Pete Thakkar on 03-23-2023 Bacteria Auto Ql (U) 1+ None Seen [facility] Urine clarity by refractomet ry automatedOrdered By: Pete Thakkar on 03-23-2023 Clarity Refractometry automated (U) Clear Clear [facility] Urine glucose measurement by automated test strip (mass/volume)Ordered By: Pete Thakkar on 03-23-2023 Glucose Auto test strip (U) [Mass/Vol] Normal mg/dL Normal [facility] Urine hemoglobin detection b y automated test stripOrdered By: Pete Thakkar on 03-23-2023 Hemoglobin Auto test strip Ql (U) Trace Negative [facility] Urine leukocyte esterase det ection by automated test stripOrdered By: Pete Thakkar on 03-23-2023 Leukocyte esterase Auto test strip Ql (U) Negative Negative [facility] Urobilinogen Auto test strip (U) [Mass/Vol]Ordered By: Pete Thakkar on 03-23-2023 Urobilinogen (U) [Mass/Vol] Normal mg/dL Normal [facility] WBC Auto (Bld) [#/Vol]Ordere d By: Pete Thakkar on 03-23-2023 WBC (Bld) [#/Vol] 6.3 10*3/uL 3.8-11.6 [facility] pH Auto test strip (U)Ordere d By: Pete Thakkar on 03-23-2023 pH (U) 5.0 [pH] 5.0-9.0 [facility] Activated partial thrombopla stin time (aPTT) in platelet poor plasma by coagulation aOrdered By: Conner Griffith on 02-15-2023 aPTT Coag (PPP) [Time] 37.0 s 25.1-36.5 [facility] Alanine aminotransferase [En zymatic activity/volume] in Serum or PlasmaOrdered By: Conner Griffith on 02-15-2023 ALT [Catalytic activity/Vol] 13 U/L [facility] Albumin [Mass/volume] in Ser um or Plasma by Bromocresol green (BCG) dye binding methoOrdered By: Conner Griffith on 02-15-2023 Albumin BCG dye [Mass/Vol] 4.3 g/dL 3.5-5.7 [facility] Alkaline phosphatase [Enzyma tic activity/volume] in Serum or PlasmaOrdered By: Conner Griffith on 02-15-2023 ALP [Catalytic activity/Vol] 124 U/L 34-104 [facility] Aspartate aminotransferase [ Enzymatic activity/volume] in Serum or PlasmaOrdered By: Conner Griffith on 02-15-2023 AST [Catalytic activity/Vol] 15 U/L 13-39 [facility] Basophils Auto (Bld) [#/Vol] Ordered By: Conner Griffith on 02-15-2023 Basophils (Bld) [#/Vol] 0.0 10*3/uL 0.0-0.2 [facility] Basophils/100 WBC Auto (Bld) Ordered By: Conner Griffith on 02-15-2023 Basophils/100 WBC (Bld) 0.6 % . [facility] Bilirubin.direct [Mass/volum e] in Serum or PlasmaOrdered By: Conner Griffith on 02-15-2023 Bilirubin.direct [Mass/Vol] 0.00 mg/dL 0.03-0.18 [facility] Comment on above: If the DBIL is less than 0.1, IBIL is not able to becalculated. Bilirubin.total [Mass/volume ] in Serum or PlasmaOrdered By: Conner Griffith on 02-15-2023 Bilirubin [Mass/Vol] 0.4 mg/dL 0.3-1.0 [facility] Calcium [Mass/volume] in Ser um or PlasmaOrdered By: Conner Griffith on 02-15-2023 Calcium [Mass/Vol] 9.3 mg/dL 8.6-10.3 [facility] Carbon dioxide, total [Moles /volume] in Serum or PlasmaOrdered By: Conner Griffith on 02-15-2023 CO2 [Moles/Vol] 25.3 mmol/L 21.0-31.0 [facility] Chloride [Moles/volume] in S cristine or PlasmaOrdered By: Conner Griffith on 02-15-2023 Chloride [Moles/Vol] 106 mmol/L 98-107 [facility] Creatinine [Mass/volume] in Serum or PlasmaOrdered By: Conner Griffith on 02-15-2023 Creatinine [Mass/Vol] 0.77 mg/dL 0.60-1.20 [facility] Eosinophils Auto (Bld) [#/Vo l]Ordered By: Conner Griffith on 02-15-2023 Eosinophils (Bld) [#/Vol] 0.2 10*3/uL 0.0-0.45 [facility] Eosinophils/100 WBC Auto (Bl d)Ordered By: Conner Griffith on 02-15-2023 Eosinophils/100 WBC (Bld) 4.0 % . [facility] Erythrocyte distribution wid th Auto (RBC) [Ratio]Ordered By: Conner Griffith on 02-15-2023 Erythrocyte distribution width (RBC) [Ratio] 13.5 % 11.9-15.3 [facility] Globulin Calc (S) [Mass/Vol] Ordered By: Conner Griffith on 02-15-2023 Globulin (S) [Mass/Vol] 3.0 g/dL [facility] Glucose [Mass/volume] in Ser um or PlasmaOrdered By: Conner Griffith on 02-15-2023 Glucose [Mass/Vol] 94 mg/dL 70-100 [facility] Comment on above: ADA recommended refe rence rangeRandom Glucose Reference Range is dependent on time and content of last meal. Glucose of more than 200 mg/dL in a nonstressed, ambulatory subject supports the diagnosis of Diabetes Mellitus. Hematocrit Auto (Bld) [Volum e fraction]Ordered By: Conner Griffith on 02-15-2023 Hematocrit (Bld) [Volume fraction] 38.4 % 34.0-46.4 [facility] Hemoglobin [Mass/volume] in BloodOrdered By: Conner Griffith on 02-15-2023 Hemoglobin (Bld) [Mass/Vol] 13.0 g/dL 11.8-15.4 [facility] Laboratory - CoagulationOrde red By: Conner Griffith on 02-15-2023 PT Coag (PPP) [Time] 11.7 s 9.0-12.9 [facility] Leukocytes [#/volume] correc jun for nucleated erythrocytes in Blood by Automated counOrdered By: Conner Griffith on 02-15-2023 WBC corrected for nucl RBC Auto (Bld) [#/Vol] 5.2 10*3/uL 3.8-11.6 [facility] Lipase [Enzymatic activity/v olume] in Serum or PlasmaOrdered By: Conner Griffith on 02-15-2023 Lipase [Catalytic activity/Vol] 19.0 U/L 11.0-82.0 [facility] Lymphocytes Auto (Bld) [#/Vo l]Ordered By: Conner Griffith on 02-15-2023 Lymphocytes (Bld) [#/Vol] 1.8 10*3/uL 1.00-4.8 [facility] Lymphocytes/100 WBC Auto (Bl d)Ordered By: Conner Griffith on 02-15-2023 Lymphocytes/100 WBC (Bld) 33.8 % . [facility] MCH Auto (RBC) [Entitic mass ]Ordered By: Conner Griffith on 02-15-2023 MCH (RBC) [Entitic mass] 29.4 pg 24.7-34.3 [facility] MCHC Auto (RBC) [Mass/Vol]Or dered By: Conner Griffith on 02-15-2023 MCHC (RBC) [Mass/Vol] 33.8 g/dL 32.0-35.0 [facility] MCV Auto (RBC) [Entitic vol] Ordered By: Conner Griffith on 02-15-2023 MCV (RBC) [Entitic vol] 86.8 fL 80-100 [facility] Monocyte distribution width [Entitic volume] in Blood by AutomatedOrdered By: Conner Griffith on 02-15-2023 Monocyte distribution width Auto (Bld) [Entitic vol] 18.21 % 0.00-20.00 [facility] Monocytes Auto (Bld) [#/Vol] Ordered By: Conner Griffith on 02-15-2023 Monocytes (Bld) [#/Vol] 0.3 10*3/uL 0.0-0.8 [facility] Monocytes/100 WBC Auto (Bld) Ordered By: Conner Griffith on 02-15-2023 Monocytes/100 WBC (Bld) 4.8 % . [facility] Neutrophils Auto (Bld) [#/Vo l]Ordered By: Conner Griffith on 02-15-2023 Neutrophils (Bld) [#/Vol] 3.0 10*3/uL 1.8-7.7 [facility] Neutrophils/100 WBC Auto (Bl d)Ordered By: Conner Griffith on 02-15-2023 Neutrophils/100 WBC (Bld) 56.8 % . [facility] No Panel InformationOrdered By: Conner Griffith on 02-15-2023 Estimated GFR (CKD-EPI) > 60.0 mL/Min [facility] Creatinine Clearance (Chem 98.01 [facility] Nucleated erythrocytes [Pres ence] in Blood by Automated countOrdered By: Conner Griffith on 02-15-2023 Nucleated RBC Auto Ql (Bld) 0.2 /100{WBC} 0-0.5 [facility] Platelet mean volume Auto (B ld) [Entitic vol]Ordered By: Conner Griffith on 02-15-2023 Platelet mean volume (Bld) [Entitic vol] 7.3 fL 6.3-10.7 [facility] Platelet poor plasma interna tional normalized ratio (INR) by coagulation assay (relatOrdered By: Conner Griffith on 02-15-2023 INR Coag (PPP) [Relative time] 1.0 {INR} [facility] Comment on above: INR Therapeutic [...] 02-15-2023 Platelets (Bld) [#/Vol] 385 10*3/uL 150-450 [facility] Potassium [Moles/volume] in Serum or PlasmaOrdered By: Conner Griffith on 02-15-2023 Potassium [Moles/Vol] 3.9 mmol/L 3.5-5.1 [facility] Protein [Mass/volume] in Ser um or PlasmaOrdered By: Conner Griffith on 02-15-2023 Protein [Mass/Vol] 7.3 g/dL 6.4-8.9 [facility] RBC Auto (Bld) [#/Vol]Ordere d By: Conner Griffith on 02-15-2023 RBC (Bld) [#/Vol] 4.43 10*6/uL 3.60-5.00 [facility] Serum or plasma albumin/glob ulin mass ratioOrdered By: Conner Griffith on 02-15-2023 Albumin/Globulin [Mass ratio] 1.4 {ratio} [facility] Serum or plasma anion gap de terminationOrdered By: Conner Griffith on 02-15-2023 Anion gap [Moles/Vol] 12.6 mmol/L 6.0-15.0 [facility] Serum or plasma non-glucuron idated bilirubin measurement (mass/volume)Ordered By: Conner Griffith on 02-15-2023 Bilirubin.indirect [Mass/Vol] 0.4 mg/dL [facility] Sodium [Moles/volume] in Ser um or PlasmaOrdered By: Conner Griffith on 02-15-2023 Sodium [Moles/Vol] 140 mmol/L 136-145 [facility] Urea nitrogen [Mass/volume] in Serum or PlasmaOrdered By: Conner Griffith on 02-15-2023 Urea nitrogen [Mass/Vol] 14 mg/dL 7-25 [facility] WBC Auto (Bld) [#/Vol]Ordere d By: Conner Griffith on 02-15-2023 WBC (Bld) [#/Vol] 5.2 10*3/uL 3.8-11.6 [facility] MG MAMM SCREEN 3D MACARIO CADon 11-30-2022 MG MAMM SCREEN 3D MACARIO CAD Normal [facility] ER URINE PROFILEon 3 Bilirubin Ql (U) Negative Normal NEGATIVE [facility] Comment on above: Performed By: #### E RUR ####[facility] [address] [place], [place] [address]Dr. Tadeo Smyth Clarity (U) CLEAR Normal CLEAR [facility] Comment on above: Performed By: #### E RUR ####[facility] [address] [place], [place] [address]Dr. Tadeo Smyth Color (U) YELLOW Normal YELLOW [facility] Comment on above: Performed By: #### E RUR ####[facility] [address] [place], [place] [address]Dr. Tadeo Smyth ERUAHD A micrscopic examina tion will be performed if indicated. Normal [facility] Comment on above: Performed By: #### E RUR ####[facility] [address] [place], [place] [address]Dr. Margotnicole Haja Glucose Ql (U) Negative Normal NEGATIVE [facility] Comment on above: Performed By: #### E RUR ####[facility] M[address] [place], [place] [address]Dr. Tadeo Smyth Hemoglobin Ql (U) TRACE-INTACT Abnormal NEGATIVE [facility] Comment on above: Performed By: #### E RUR ####[facility] [address] [place], [place] [address]Dr. Tadeo Smyth Ketones Ql (U) Negative Normal NEGATIVE [facility] Comment on above: Performed By: #### E RUR ####[facility] [address] [place], [place] [address]Dr. Tadeo Smyth LEUKOCYTES Negative Normal NEGATIVE [facility] Comment on above: Performed By: #### E RUR ####[facility] [address] [place], [place] [address]Dr. Tadeo Smyth Nitrite Ql (U) Negative Normal NEGATIVE [facility] Comment on above: Performed By: #### E RUR ####[facility] [address] [place], [place] [address]Dr. Tadeo Smyth pH (U) 6.0 [pH] Normal 5-9 [facility] Comment on above: Performed By: #### E RUR ####[facility] [address] [place], [place] [address]Dr. Tadeo Smyth SPEC GRAVITY >=1.030 Abnormal 1.005-<=1.0 25 [facility] Comment on above: Performed By: #### E RUR ####[facility] [address] [place] [address]Dr. Tadeo Smyth UA PROTEIN Negative Normal NEGATIVE/ TRACE [facility] Comment on above: Performed By: #### E RUR ####[facility] [address] [place] [address]Dr. Tadeo Smyth UR MICRO IND NOT INDICATED Normal [facility] Comment on above: Performed By: #### E RUR ####[facility] [address] [place] [address]Dr. Tadeo Smyth Urobilinogen Qn (U) 0.2 {Benito'U}/dL Normal 0.2 - 1. 0 [facility] Comment on above: Performed By: #### E RUR ####[facility] [address] [place], [place] [address]Dr. Tadeo Smyth XR ABD FLAT UP_PA Kasey 11-28 XR ABD FLAT UP_PA CH Normal [facility] AMYLASEon 11-27-2022 Amylase [Catalytic activity/Vol] 63 U/L Normal 25-115 [facility] Comment on above: Performed By: #### L VIJI HALL, CMP ####[facility] [address] [place], [place] [address]Dr. Tadeo Smyth CBC AUTO DIFFon 11-27-2022 BASO # 0.0 103/ul Normal 0.0-0.1 [facility] Comment on above: Performed By: #### C BC ####[facility] [address] [place] [address]Dr. Tadeo Smyth Basophils/100 WBC (Bld) 0.4 % Normal 0.2-2.0 [facility] Comment on above: Performed By: #### C BC ####[facility] [address] [place] [address]Dr. Tadeo Smyth EO # 0.2 103/ul Normal 0.0-0.7 [facility] Comment on above: Performed By: #### C BC ####[facility] [address] [place] [id number]. Tadeo Smyth Eosinophils/100 WBC (Bld) 2.8 % Normal 0.9-7.0 [facility] Comment on above: Performed By: #### C BC ####[facility] [address] [place] [address]Dr. Tadeo Smyth Erythrocyte distribution width (RBC) [Ratio] 13.2 % Normal 11.0-15.0 [facility] Comment on above: Performed By: #### C BC ####[facility] [address] [place], [place] [address]Dr. Tadeo Smyth Hematocrit (Bld) [Volume fraction] 42.6 % Normal 36.0-48.0 [facility] Comment on above: Performed By: #### C BC ####[facility] [address] [place], [place] [address]Dr. Tadeo Smyth Hemoglobin (Bld) [Mass/Vol] 13.6 g/dL Normal 12.0-16.0 [facility] Comment on above: Performed By: #### C BC ####[facility] [address] [place], [place] [address]Dr. Tadeo Smyth IG # 0.02 10e3/ul Normal 0.00-0.03 [facility] Comment on above: Performed By: #### C BC ####[facility] [address] [place], [place] [address]Dr. Tadeo Smyth IG % 0.3 % Normal 0.0-0.5 [facility] Comment on above: Performed By: #### C BC ####[facility] [address] [place], [place] [address]Dr. Tadeo Smyth LYMPH # 2.2 103/ul Normal 1.2-3.8 [facility] Comment on above: Performed By: #### C BC ####[facility] [address] [place], [place] [address]Dr. Tadeo Smyth Lymphocytes/100 WBC (Bld) 32.1 % Normal 20.5-60.0 [facility] Comment on above: Performed By: #### C BC ####[facility] [address] [place] [id number]. Tadeo Smyth MANUAL DIFF REQ NO Normal [facility] Comment on above: Performed By: #### C BC ####[facility] [address] [place] [id number]. Tadeo Smyth MCH (RBC) [Entitic mass] 29.6 pg Normal 26.7-34.0 [facility] Comment on above: Performed By: #### C BC ####[facility] [address] [place] [address]Dr. Tadeo Smyth MCHC (RBC) [Mass/Vol] 31.9 g/dL Normal 29.9-35.2 [facility] Comment on above: Performed By: #### C BC ####[facility] [address] [place] [address]Dr. Tadeo Haja MCV (RBC) [Entitic vol] 92.6 fL Normal 81.0-99.0 [facility] Comment on above: Performed By: #### C BC ####[facility] [address] [place] [address]Dr. Tadeo Haja MONO # 0.2 103/ul Critically low 0.3-0.8 [facility] Comment on above: Performed By: #### C BC ####[facility] [address] [place], [place] [address]Dr. Margotnicole Smyth Monocytes/100 WBC (Bld) 3.2 % Normal 1.7-12.0 [facility] Comment on above: Performed By: #### C BC ####[facility] [address] [place] [id number]. Tadeo Smyth NEUT # 4.2 103/ul Normal 1.4-6.5 [facility] Comment on above: Performed By: #### C BC ####[facility] [address] [place] [address]Dr. Margotnicole Smyth Neutrophils/100 WBC (Bld) 61.2 % Normal 43.0-75.0 [facility] Comment on above: Performed By: #### C BC ####[facility] [address] [place] [id number]. Tadeo Smyth Platelet mean volume (Bld) [Entitic vol] 9.0 fL Critically low 9.5-13.5 [facility] Comment on above: Performed By: #### C BC ####[facility] [address] [place] [phone]. Tadeo Smyth PLT 392 103/ul Normal 150-450 [facility] Comment on above: Performed By: #### C BC ####[facility] [address] [place] [address]Dr. Tadeo Smyth RBC 4.60 106/ul Normal 4.20-5.40 [facility] Comment on above: Performed By: #### C BC ####[facility] [address] [place] [address]Dr. Tadeo Smyth WBC 6.9 103/ul Normal 4.0-11.0 [facility] Comment on above: Performed By: #### C BC ####[facility] [address] [place], [place] [address]Dr. Tadeo Smyth LIPASEon 11-27-2022 Lipase [Catalytic activity/Vol] 100.0 U/L Normal 73.0-393.0 [facility] Comment on above: Performed By: #### L VIJI HALL, CMP ####[facility] [address] [place] [address]Dr. Tadeo Smyth PROF 14(COMP METB)on 023 Albumin [Mass/Vol] 3.5 g/dL Normal 3.4-5.0 [facility] Comment on above: Performed By: #### L VIJI HALL, CMP ####[facility] [address] [place] [address]Dr. Tadeo Smyth Albumin/Globulin [Mass ratio] 0.9 {ratio} Normal [facility] Comment on above: Performed By: #### L VIJI HALL, CMP ####[facility] [address] [place] [address]Dr. Tadeo Smyth ALP [Catalytic activity/Vol] 166 U/L Critically high 46-116 [facility] Comment on above: Performed By: #### L IPA VIJI, CMP ####[facility] [address] [place] [address]Dr. Tadeo Smyth ALT [Catalytic activity/Vol] 25 U/L Normal 14-59 [facility] Comment on above: Performed By: #### L IPA VIJI, CMP ####[facility] [address] [place] [address]Dr. Tadeo Smyth Anion gap [Moles/Vol] 12.4 mmol/L Normal [facility] Comment on above: Performed By: #### L IPA VIJI, CMP ####[facility] [address]zqofwowvz4[address] [place] [address]Dr. Tadeo Smyth AST [Catalytic activity/Vol] 18 U/L Normal 15-37 [facility] Comment on above: Performed By: #### L IPA VIJI, CMP ####[facility] Szcgkcclvc[address] [place], [place] [address]Dr. Tadeo Smyth Bilirubin [Mass/Vol] 0.3 mg/dL Normal 0.2-1.0 [facility] Comment on above: Performed By: #### L IPA VIJI, CMP ####[facility] F[address]poi[address] [place], [place] [address]Dr. Tadeo Smyth Calcium [Mass/Vol] 9.1 mg/dL Normal 8.5-10.1 [facility] Comment on above: Performed By: #### L IPA VIJI, CMP ####[facility] Sjnjruxv[address] [place], [place] [address]Dr. Tadeo Smyth Chloride [Moles/Vol] 104 mmol/L Normal 98-107 [facility] Comment on above: Performed By: #### L IPA VIJI, CMP ####[facility] Cjblyeqiec[address] [place], [place] [address]Dr. Tadeo Smyth CO2 [Moles/Vol] 25.0 mmol/L Normal 21.0-32.0 [facility] Comment on above: Performed By: #### L IPA VIJI, CMP ####[facility] S[address]rwkx[address]rx[address] [place], [place] [address]Dr. Tadeo Smyth Creatinine [Mass/Vol] 0.87 mg/dL Normal 0.55-1.02 [facility] Comment on above: Performed By: #### L VIJI HALL, CMP ####[facility] Yobzrefs[address] [place] [address]Dr. Tadeo Smyth EGFR-AF HAITIAN >60 Normal >=60 [facility] Comment on above: Performed By: #### L VIJI HALL, CMP ####[facility] Lydvrwbxmw6559 [place] [address]Dr. Tadeo Smyth EGFR-NON AF HAITIAN >60 Normal >=60 [facility] Comment on above: Performed By: #### L VIJI HALL, CMP ####[facility] Gavtfptaxt4952 [place] [address]Dr. Tadeo Smyth Globulin (S) [Mass/Vol] 3.9 g/dL Normal [facility] Comment on above: Performed By: #### L VIJI HALL, CMP ####[facility] Ljeaddqtph6535 [place] [address]Dr. Tadeo Smyth Glucose [Mass/Vol] 169 mg/dL Critically high 74-106 T [facility] Comment on above: Performed By: #### L VIJI HALL, CMP ####[facility] Gofmemkdtc7[address] [place] [address]Dr. Tadeo Smyth Potassium [Moles/Vol] 3.4 mmol/L Critically low 3.5-5.1 [facility] Comment on above: Performed By: #### L VIJI HALL, CMP ####[facility] Jyinkwxfoh55[address] [place] [address]Dr. Tadeo Smyth Protein [Mass/Vol] 7.4 g/dL Normal 6.4-8.2 [facility] Comment on above: Performed By: #### L VIJI HALL, CMP ####[facility] Adyethshgr[address] [place] [address]Dr. Tadeo Smyth Sodium [Moles/Vol] 138 mmol/L Normal 136-145 [facility] Comment on above: Performed By: #### L VIJI HALL, CMP ####[facility] Wcanyftsqr4584 [place] [id number]. Tadeo Smyth Urea nitrogen [Mass/Vol] 23.0 mg/dL Critically high 7.0-18.0 [facility] Comment on above: Performed By: #### L IPA, VIJI, CMP ####[facility] Ychduwuwxv3509 [place] [address]Dr. Tadeo Haja Urea nitrogen/Creatinine [Mass ratio] 26.4 mg/mg Normal [facility] Comment on above: Performed By: #### L IPA, VIJI, CMP ####[facility] Hecdsocrvn7[address] [place] [address]Dr. Tadeo Haja AMYLASEon 11-02-2022 Amylase [Catalytic activity/Vol] 40 U/L Normal 25-115 [facility] Comment on above: Performed By: #### L IPA, MG, CMP, VIJI ####[facility] Sreglgiddy2[address] [place] [address]Dr. Tadeo Haja CBC AUTO DIFFon 11-02-2022 BASO # 0.0 103/ul Normal 0.0-0.1 [facility] Comment on above: Performed By: #### C BC ####[facility] Uqifxftjmk[address] [place], [place] [address]Dr. Margotnicole Smyth Basophils/100 WBC (Bld) 0.5 % Normal 0.2-2.0 [facility] Comment on above: Performed By: #### C BC ####[facility] Kajaxlwjvl8[address] [place], [place] [address]Dr. Tadeo Haja EO # 0.1 103/ul Normal 0.0-0.7 [facility] Comment on above: Performed By: #### C BC ####[facility] Gohygtbfbb398[address] [place], [place] [address]Dr. Tadeo Haja Eosinophils/100 WBC (Bld) 2.8 % Normal 0.9-7.0 [facility] Comment on above: Performed By: #### C BC ####[facility] Ihdtwnzghv45[address] [place], [place] [address]Dr. Tadeo Smyth Erythrocyte distribution width (RBC) [Ratio] 13.3 % Normal 11.0-15.0 [facility] Comment on above: Performed By: #### C BC ####[facility] Wlqovefmlr4022 [place] [address]Dr. Tadeo Smyth Hematocrit (Bld) [Volume fraction] 35.6 % Critically low 36.0-48.0 [facility] Comment on above: Performed By: #### C BC ####[facility] Ynryrdvsro124[address] [place], [place] [address]Dr. Tadeo Smyth Hemoglobin (Bld) [Mass/Vol] 11.3 g/dL Critically low 12.0-16.0 [facility] Comment on above: Performed By: #### C BC ####[facility] Hduuoknets[address] [place], [place] [address]Dr. Tadeo Smyth IG # 0.01 10e3/ul Normal 0.00-0.03 [facility] Comment on above: Performed By: #### C BC ####[facility] Xwzkljvamy[address] [place], [place] [address]Dr. Tadeo Smyth IG % 0.2 % Normal 0.0-0.5 [facility] Comment on above: Performed By: #### C BC ####[facility] Luhydyzwrx294[address] [place], [place] [address]Dr. Tadeo Smyth LYMPH # 1.5 103/ul Normal 1.2-3.8 [facility] Comment on above: Performed By: #### C BC ####[facility] Hauzbjpymj[address] [place], [place] [address]Dr. Tadeo Smyth Lymphocytes/100 WBC (Bld) 34.9 % Normal 20.5-60.0 [facility] Comment on above: Performed By: #### C BC ####[facility] Wqxsdigoyv308[address] [place], [place] [address]Dr. Tadeo Smyth MANUAL DIFF REQ NO Normal [facility] Comment on above: Performed By: #### C BC ####[facility] Jpvijhwjhp475[address] [place], [place] [address]Dr. Tadeo Smyth MCH (RBC) [Entitic mass] 28.8 pg Normal 26.7-34.0 [facility] Comment on above: Performed By: #### C BC ####[facility] Xzhlzbpags7329 [place] [id number]. Tadeo Haja MCHC (RBC) [Mass/Vol] 31.7 g/dL Normal 29.9-35.2 [facility] Comment on above: Performed By: #### C BC ####[facility] Spkcqzdgzh1505 [place] [phone]. Tadeo Smyth MCV (RBC) [Entitic vol] 90.8 fL Normal 81.0-99.0 [facility] Comment on above: Performed By: #### C BC ####[facility] Cmwqveakpi[address] [place], [place] [address]DrNeo Smyth MONO # 0.3 103/ul Normal 0.3-0.8 [facility] Comment on above: Performed By: #### C BC ####[facility] Mqiwmpkctu0769 [place] [address]Dr. Tadeo Smyth Monocytes/100 WBC (Bld) 6.9 % Normal 1.7-12.0 [facility] Comment on above: Performed By: #### C BC ####[facility] Jryyqydltq[address] [place], [place] [address]Dr. Tadeo Smyth NEUT # 2.4 103/ul Normal 1.4-6.5 [facility] Comment on above: Performed By: #### C BC ####[facility] Ehguadkuib007[address] [place], [place] [address]Dr. Tadeo Smyth Neutrophils/100 WBC (Bld) 54.7 % Normal 43.0-75.0 [facility] Comment on above: Performed By: #### C BC ####[facility] Ftbkfobxea[address] [place], [place] [id number] Smyth Platelet mean volume (Bld) [Entitic vol] 8.9 fL Critically low 9.5-13.5 [facility] Comment on above: Performed By: #### C BC ####[facility] Liqkkuhxtl[address] [place], [place] [address]Dr. Tadeo Smyth PLT 316 103/ul Normal 150-450 [facility] Comment on above: Performed By: #### C BC ####[facility] Yuodfwgspi4418 [place] [address]Dr. Tadeo Smyth RBC 3.92 106/ul Critically low 4.20-5.40 [facility] Comment on above: Performed By: #### C BC ####[facility] Elixpolefl[address] [place] [address]Dr. Tadeo Smyth WBC 4.4 103/ul Normal 4.0-11.0 [facility] Comment on above: Performed By: #### C BC ####[facility] Amlzrvqcsj9048 [place] [address]Dr. Tadeo Smyth H PYLORI ANTIBODY IGGon 10-07 H. PYLORI IGG ABS 0.12 Index Value Normal 0.00-0.79 [facility] Comment on above: Result Comment: Nega tive <0.80 Equivocal 0.80 - 0.89 Positive >0.89 Performed By: #### H PYLLC ####[facility] Dhknpzteks1174 [place] [address]Dr. Tadeo Smyth LIPASEon 11-02-2022 Lipase [Catalytic activity/Vol] 58.0 U/L Critically low 73.0-393.0 [facility] Comment on above: Performed By: #### L IPA, MG, CMP, VIJI ####[facility] Rzduvmqugy6627 [place] [address]Dr. Tadeo Smyth MAGNESIUMon 11-02-2022 Magnesium [Mass/Vol] 1.8 mg/dL Normal 1.8-2.4 [facility] Comment on above: Performed By: #### L IPA, MG, CMP, VIJI ####[facility] Wezhiiizsw6[address] [place] [address]Dr. Tadeo Smyth PROF 14(COMP METB)on 023 Albumin [Mass/Vol] 3.2 g/dL Critically low 3.4-5.0 [facility] Comment on above: Performed By: #### L IPA, MG, CMP, VIJI ####[facility] Lvbjeghzez8[address] [place], [place] [address]Dr. Tadeo Smyth Albumin/Globulin [Mass ratio] 1.0 {ratio} Normal [facility] Comment on above: Performed By: #### L IPA, MG, CMP, VIJI ####[facility] Ttxpgjpssy0767 [place] [address]Dr. Tadeo Smyth ALP [Catalytic activity/Vol] 138 U/L Critically high 46-116 [facility] Comment on above: Performed By: #### L IPA, MG, CMP, VIJI ####[facility] Glhxvvhkic1217 [place] [address]Dr. Tadeo Smyth ALT [Catalytic activity/Vol] 22 U/L Normal 14-59 [facility] Comment on above: Performed By: #### L IPA, MG, CMP, VIJI ####[facility] Npkejztrvy[address] [place], [place] [address]Dr. Tadeo Smyth Anion gap [Moles/Vol] 10.0 mmol/L Normal [facility] Comment on above: Performed By: #### L IPA, MG, CMP, VIJI ####[facility] Veztnycdms[address] [place], [place] [address]Dr. Margotnicole Smyth AST [Catalytic activity/Vol] 18 U/L Normal 15-37 [facility] Comment on above: Performed By: #### L IPA, MG, CMP, VIJI ####[facility] Hekeazmlbz[address] [place], [place] [address]Dr. Tadeo Smyth Bilirubin [Mass/Vol] 0.5 mg/dL Normal 0.2-1.0 [facility] Comment on above: Performed By: #### L IPA, MG, CMP, VIJI ####[facility] Dktmquwfce3[address] [place], [place] [address]Dr. Tadeo Smyth Calcium [Mass/Vol] 8.9 mg/dL Normal 8.5-10.1 [facility] Comment on above: Performed By: #### L IPA, MG, CMP, VIJI ####[facility] Klyssxdwob[address] [place], [place] [address]Dr. Tadeo Smyth Chloride [Moles/Vol] 107 mmol/L Normal 98-107 [facility] Comment on above: Performed By: #### L IPA, MG, CMP, VIJI ####[facility] Igkkqvpkee5[address] [place] [address]Dr. Tadeo Smyth CO2 [Moles/Vol] 28.8 mmol/L Normal 21.0-32.0 [facility] Comment on above: Performed By: #### L IPA, MG, CMP, VIJI ####[facility] Ochogzfoaf[address]87 [place] [address]Dr. Tadeo Smyth Creatinine [Mass/Vol] 0.74 mg/dL Normal 0.55-1.02 [facility] Comment on above: Performed By: #### L IPA, MG, CMP, VIJI ####[facility] Melvnpyvel22[address] [place], [place] [address]Dr. Tadeo Smyth EGFR-AF HAITIAN >60 Normal >=60 [facility] Comment on above: Performed By: #### L IPA, MG, CMP, VIJI ####[facility] Amkzlorexo217[address] [place], [place] [address]Dr. Tadeo Smyth EGFR-NON AF HAITIAN >60 Normal >=60 [facility] Comment on above: Performed By: #### L IPA, MG, CMP, VIJI ####[facility] Ardowqsfgr[address] [place], [place] [address]Dr. Tadeo Smyth Globulin (S) [Mass/Vol] 3.3 g/dL Normal [facility] Comment on above: Performed By: #### L IPA, MG, CMP, VIJI ####[facility] Npakyhfdee20[address] [place], [place] [address]Dr. Tadeo Smyth Glucose [Mass/Vol] 96 mg/dL Normal 74-106 [facility] Comment on above: Performed By: #### L IPA, MG, CMP, VIJI ####[facility] Xrclojgmvk[address] [place], [place] [address]Dr. Tadeo Smyth Potassium [Moles/Vol] 3.8 mmol/L Normal 3.5-5.1 [facility] Comment on above: Performed By: #### L IPA, MG, CMP, VIJI ####[facility] Tktigaxxjx[address]27[address] [place], [place] [address]Dr. Tadeo Smyth Protein [Mass/Vol] 6.5 g/dL Normal 6.4-8.2 [facility] Comment on above: Performed By: #### L IPA, MG, CMP, VIJI ####[facility] Qwxnhkrlxn2601 [place] [address]Dr. Tadeo Smyth Sodium [Moles/Vol] 142 mmol/L Normal 136-145 [facility] Comment on above: Performed By: #### L IPA, MG, CMP, VIJI ####[facility] Xpdnknncxi[address] [place], [place] [address]Dr. Tadeo Smyth Urea nitrogen [Mass/Vol] 8.0 mg/dL Normal 7.0-18.0 [facility] Comment on above: Performed By: #### L IPA, MG, CMP, VIJI ####[facility] Bjaudnshuw[address] [place], [place] [address]Dr. Tadeo Smyth Urea nitrogen/Creatinine [Mass ratio] 10.8 mg/mg Normal [facility] Comment on above: Performed By: #### L IPA, MG, CMP, VIJI ####[facility] Ikgydiazly[address] [place], [place] [address]Dr. Tadeo Smyth AMMONIAon 11-01-2022 Ammonia (P) [Moles/Vol] 18 umol/L Normal 11-32 [facility] Comment on above: Performed By: #### A MM ####[facility] Dmtzfekivv[address] [place], [place] [address]Dr. Tadeo Smyth AMYLASEon 11-01-2022 Amylase [Catalytic activity/Vol] 43 U/L Normal 25-115 [facility] Comment on above: Performed By: #### M G, VIJI, LIPA, CMP ####[facility] Oljndeehck[address] [place], [place] [address]Dr. Tadeo Smyth CBC AUTO DIFFon 11-01-2022 BASO # 0.0 103/ul Normal 0.0-0.1 [facility] Comment on above: Performed By: #### C BC ####[facility] Qsnwipgnrg5425[address] [place], [place] [address]Dr. Tadeo Smyth Basophils/100 WBC (Bld) 0.6 % Normal 0.2-2.0 [facility] Comment on above: Performed By: #### C BC ####[facility] Qhjsqucqvs9[address] [place], [place] [address]Dr. Tadeo Smyth EO # 0.1 103/ul Normal 0.0-0.7 [facility] Comment on above: Performed By: #### C BC ####[facility] Ljmpmcrmcp[address] [place], [place] [address]Dr. Tadeo Smyth Eosinophils/100 WBC (Bld) 1.5 % Normal 0.9-7.0 [facility] Comment on above: Performed By: #### C BC ####[facility] Grpigxquid[address] [place], [place] [address]Dr. Tadeo Smyth Erythrocyte distribution width (RBC) [Ratio] 13.5 % Normal 11.0-15.0 [facility] Comment on above: Performed By: #### C BC ####[facility] Oobpjllkvj[address] [place], [place] [address]Dr. Tadeo Smyth Hematocrit (Bld) [Volume fraction] 37.7 % Normal 36.0-48.0 [facility] Comment on above: Performed By: #### C BC ####[facility] Mkjjydutsz215[address] [place], [place] [address]Dr. Tadeo Smyth Hemoglobin (Bld) [Mass/Vol] 12.5 g/dL Normal 12.0-16.0 [facility] Comment on above: Performed By: #### C BC ####[facility] Hskckshkes8[address] [place], [place] [address]Dr. Tadeo Smyth IG # 0.02 10e3/ul Normal 0.00-0.03 [facility] Comment on above: Performed By: #### C BC ####[facility] Ggmoayvrdy[address] [place], [place] [address]Dr. Tadeo Smyth IG % 0.4 % Normal 0.0-0.5 [facility] Comment on above: Performed By: #### C BC ####[facility] Nxgysxrqxb01[address] [place], [place] [address]DrNeo Smyth LYMPH # 1.3 103/ul Normal 1.2-3.8 [facility] Comment on above: Performed By: #### C BC ####[facility] Zdeffqayfj01[address] [place] [address]Dr. Tadeo Smyth Lymphocytes/100 WBC (Bld) 23.9 % Normal 20.5-60.0 [facility] Comment on above: Performed By: #### C BC ####[facility] Vdprucjwlt4901 [place] [address]DrNeo Smyth MANUAL DIFF REQ NO Normal [facility] Comment on above: Performed By: #### C BC ####[facility] Ruszttynrl7152 [place] [address]DrNeo Smyth MCH (RBC) [Entitic mass] 29.8 pg Normal 26.7-34.0 [facility] Comment on above: Performed By: #### C BC ####[facility] Yqwmexdflg[address] [place], [place] [address]Dr. Tadeo Smyth MCHC (RBC) [Mass/Vol] 33.2 g/dL Normal 29.9-35.2 [facility] Comment on above: Performed By: #### C BC ####[facility] Pmymbfmmyh[address] [place], [place] [address]DrNeo Smyth MCV (RBC) [Entitic vol] 89.8 fL Normal 81.0-99.0 [facility] Comment on above: Performed By: #### C BC ####[facility] Vuhvtcbnwb054[address] [place], [place] [address]Dr. Tadeo Smyth MONO # 0.3 103/ul Normal 0.3-0.8 [facility] Comment on above: Performed By: #### C BC ####[facility] R[address]zkjfwst[address] [place], [place] [address]DrNeo Smyth Monocytes/100 WBC (Bld) 5.2 % Normal 1.7-12.0 [facility] Comment on above: Performed By: #### C BC ####[facility] J[address]udpsvrh8[address] [place], [place] [address]DrNeo Smyth NEUT # 3.6 103/ul Normal 1.4-6.5 [facility] Comment on above: Performed By: #### C BC ####[facility] Gnlbgvcncu6[address] [place] [address]Dr. Tadeo Smyth Neutrophils/100 WBC (Bld) 68.4 % Normal 43.0-75.0 [facility] Comment on above: Performed By: #### C BC ####[facility] Kghpairodr0636 [place] [address]Dr. Tadeo Smyth Platelet mean volume (Bld) [Entitic vol] 9.0 fL Critically low 9.5-13.5 [facility] Comment on above: Performed By: #### C BC ####[facility] Jgcwysampl[address] [place], [place] [address]Dr. Tadeo Smyth PLT 356 103/ul Normal 150-450 [facility] Comment on above: Performed By: #### C BC ####[facility] Bvcfmyxqfb216[address] [place], [place] [address]Dr. Tadeo Smyth RBC 4.20 106/ul Normal 4.20-5.40 [facility] Comment on above: Performed By: #### C BC ####[facility] Tvudokmiho16[address] [place], [place] [address]Dr. Tadeo Smyth WBC 5.2 103/ul Normal 4.0-11.0 [facility] Comment on above: Performed By: #### C BC ####[facility] Sjwxligqqv35[address] [place], [place] [address]Dr. Tadeo Smyth CT ABD/PELV W CONon 11-01-[address] ABD/PELV W CON Normal [facility] CULTURE BLOODon 11-01-2022 Microscopic examination of blood, culture Culture Observations: NO GROWTH AT 5 DAYS. Isolate 1 BC_BA_NA Normal [facility] Comment on above: Performed By: #### B LDCX2 ####[facility] T[address]ufykgfq11[address] [place], [place] [address]Dr. Tadeo Smyth Performed By: #### B LDCX1 ####[facility] Frurvzcabe[address] [place], [place] [address]Dr. Tadeo Smyth CULTURE URINEon 11-01-2022 CULTURE URINE Culture Observations : LIGHT GROWTH OF MIXED GENITAL SINTIA. NO POTENTIAL PATHOGENS SEEN. Normal [facility] Comment on above: Performed By: #### U RCX ####[facility] Wmwzruelcd[address] [place], [place] [address]Dr. Tadeo Smyth [facility]-19 [facility]07 SARS-CoV-2 (COVID-19) RNA CHEN+probe Ql (Unsp spec) Not detected Normal NOT DETECTED [facility] Comment on above: Result Comment: When [...] for this test is supported by the [place] of Health and Human Service's declaration that [...] be used). Performed By: #### C VDTBH ####[facility] U[address]jcqbql[address] [place], [place] [address]Dr. Tadeo Smyth LACTATE/LACTIC ACIDon 2022 Lactate [Moles/Vol] 0.7 mmol/L Normal 0.4-1.9 [facility] Comment on above: Performed By: #### L ACT ####[facility] Qplvwroimm[address] [place], [place] [address]Dr. Tadeo Smyth LIPASEon 11-01-2022 Lipase [Catalytic activity/Vol] 58.0 U/L Critically low 73.0-393.0 [facility] Comment on above: Performed By: #### M G, VIJI, LIPA, CMP ####[facility] [address]bi[address] [place], [place] [id number]. Tadeo Smyth MAGNESIUMon 11-01-2022 Magnesium [Mass/Vol] 2.0 mg/dL Normal 1.8-2.4 [facility] Comment on above: Performed By: #### M Ayan, VIJI, LIPA, CMP ####[facility] Ytolgairfb40[address] [place] [address]Dr. Tadeo Smyth PROF 14(COMP METB)on 023 Albumin [Mass/Vol] 3.6 g/dL Normal 3.4-5.0 [facility] Comment on above: Performed By: #### M G, VIJI, LIPA, CMP ####[facility] Rcvkroqfvi[address] [place] [address]Dr. Tadeo Smyth Albumin/Globulin [Mass ratio] 1.0 {ratio} Normal [facility] Comment on above: Performed By: #### M Ayan, VIJI, LIPA, CMP ####[facility] Pcbojxolyf74[address] [place] [address]Dr. Tadeo Smyth ALP [Catalytic activity/Vol] 164 U/L Critically high 46-116 [facility] Comment on above: Performed By: #### M Ayan, VIJI, LIPA, CMP ####[facility] Dtqprokaey23[address] [place] [address]Dr. Tadeo Smyth ALT [Catalytic activity/Vol] 22 U/L Normal 14-59 [facility] Comment on above: Performed By: #### M Ayan, VIJI, LIPA, CMP ####[facility] Pdtygqincq9874 [place] [address]Dr. Tadeo Smyth Anion gap [Moles/Vol] 11.5 mmol/L Normal [facility] Comment on above: Performed By: #### M G, VIJI, LIPA, CMP ####[facility] Ikgfrmghmw3271 [place] [address]Dr. Tadeo Smyth AST [Catalytic activity/Vol] 17 U/L Normal 15-37 [facility] Comment on above: Performed By: #### M G, VIJI, LIPA, CMP ####[facility] Maonnyrxma[address] [place] [address]Dr. Tadeo Smyth Bilirubin [Mass/Vol] 0.4 mg/dL Normal 0.2-1.0 [facility] Comment on above: Performed By: #### M Ayan, VIJI, LIPA, CMP ####[facility] Qzkmunaboe[address] [place] [address]Dr. Tadeo Smyth Calcium [Mass/Vol] 9.1 mg/dL Normal 8.5-10.1 [facility] Comment on above: Performed By: #### M Ayan, VIJI, LIPA, CMP ####[facility] [address]fpcsajhq[address] [place], [place] [address]Dr. Tadeo Smyth Chloride [Moles/Vol] 105 mmol/L Normal 98-107 [facility] Comment on above: Performed By: #### Hanna Botello, VIJI, LIPA, CMP ####[facility] Tjbvarhfnd[address] [place], [place] [address]Dr. Tadeo Smyth CO2 [Moles/Vol] 27.6 mmol/L Normal 21.0-32.0 [facility] Comment on above: Performed By: #### Hanna Botello, VIJI, LIPA, CMP ####[facility] Vjbhmgieru[address] [place], [place] [address]Dr. Tadeo Smyth Creatinine [Mass/Vol] 0.72 mg/dL Normal 0.55-1.02 [facility] Comment on above: Performed By: #### Hanna Botello, VIJI, LIPA, CMP ####[facility] Ktmucxjgdm[address] [place], [place] [address]Dr. Tadeo Smyth EGFR-AF HAITIAN >60 Normal >=60 [facility] Comment on above: Performed By: #### M Ayan, VIJI, LIPA, CMP ####[facility] Uivtftxuyo[address] [place], [place] [address]Dr. Tadeo Haja EGFR-NON AF HAITIAN >60 Normal >=60 [facility] Comment on above: Performed By: #### M G, VIJI, LIPA, CMP ####[facility] [address] [place] [address]Dr. Tadeo Smyth Globulin (S) [Mass/Vol] 3.6 g/dL Normal [facility] Comment on above: Performed By: #### M G, VIJI, LIPA, CMP ####[facility] [address] [place] [address]Dr. Tadeo Smyth Glucose [Mass/Vol] 100 mg/dL Normal 74-106 [facility] Comment on above: Performed By: #### M G, VIJI, LIPA, CMP ####[facility] Qxdxxevrya[address] [place] [address]Dr. Tadeo Smyth Potassium [Moles/Vol] 4.1 mmol/L Normal 3.5-5.1 [facility] Comment on above: Performed By: #### M G, VIJI, LIPA, CMP ####[facility] [address] [place] [address]Dr. Tadeo Smyth Protein [Mass/Vol] 7.2 g/dL Normal 6.4-8.2 [facility] Comment on above: Performed By: #### M G, VIJI, LIPA, CMP ####[facility] [address] [place] [address]Dr. Tadeo Smyth Sodium [Moles/Vol] 140 mmol/L Normal 136-145 [facility] Comment on above: Performed By: #### M G, VIJI, LIPA, CMP ####[facility] [address]rdvdkfh[address] [place] [address]Dr. Tadeo Smyht Urea nitrogen [Mass/Vol] 15.0 mg/dL Normal 7.0-18.0 [facility] Comment on above: Performed By: #### M G, VIJI, LIPA, CMP ####[facility] [address] [place] [address]Dr. Tadeo Smyth Urea nitrogen/Creatinine [Mass ratio] 20.8 mg/mg Normal [facility] Comment on above: Performed By: #### M G, VIJI, LIPA, CMP ####[facility] [address] [place] [address]Dr. Tadeo Smyth UA RANDOM W/MICROSCOPICon BACTERIA TRACE Abnormal NONE SEEN [facility] Comment on above: Performed By: #### U AMIC ####[facility] Hjgjxvjfou[address] [place] [address]Dr. Tdaeo Smyth Bilirubin Ql (U) Negative Normal NEGATIVE [facility] Comment on above: Performed By: #### U AMIC ####[facility] [address] [place], [place] [address]Dr. Tadeo Smyth CAST NONE SEEN Normal NONE SEEN [facility] Comment on above: Performed By: #### U AMIC ####[facility] [address]wnq[address] [place], [place] [address]Dr. Tadeo Smyth Clarity (U) CLEAR Normal CLEAR [facility] Comment on above: Performed By: #### U AMIC ####[facility] Cvreumzese[address] [place], [place] [address]Dr. Tadeo Smyth Color (U) LT. YELLOW Normal YELLOW [facility] Comment on above: Performed By: #### U AMIC ####[facility] [address]htj[address]cl[address] [place], [place] [address]Dr. Tadeo Smyth Crystals LM Nom (Urine sed) NONE SEEN Normal NONE SEEN [facility] Comment on above: Performed By: #### U AMIC ####[facility] Oqnzidfx[address] [place], [place] [address]Dr. Tadeo Smyth Epithelial cells LM Ql (Urine sed) RARE Normal NONE SEEN /RARE [facility] Comment on above: Performed By: #### U AMIC ####[facility] Owbdccdsco[address] [place], [place] [address]Dr. Tadeo Smyth Glucose Ql (U) Negative Normal NEGATIVE [facility] Comment on above: Performed By: #### U AMIC ####[facility] [address] [place], [place] [address]Dr. Tadeo Smyth Hemoglobin Ql (U) TRACE-LYSED Abnormal NEGATIVE [facility] Comment on above: Performed By: #### U AMIC ####[facility] Ncqfuvw[address] [place], [place] [address]Dr. Tadeo Smyth Ketones Ql (U) Negative Normal NEGATIVE [facility] Comment on above: Performed By: #### U AMIC ####[facility] Hncuwjxyvn[address] [place], [place] [address]Dr. Tadeo Smyth LEUKOCYTES Negative Normal NEGATIVE [facility] Comment on above: Performed By: #### U AMIC ####[facility] Cxhcuvfyiz19[address] [place] [address]Dr. Tadeo Smyth MUCOUS NONE SEEN Normal NONE SEEN [facility] Comment on above: Performed By: #### U AMIC ####[facility] W[address]yxwizas[address] [place] [address]Dr. Tadeo Haja Nitrite Ql (U) Negative Normal NEGATIVE [facility] Comment on above: Performed By: #### U AMIC ####[facility] Xznyytbrrx[address] [place] [address]Dr. Tadeo Smyth pH (U) 6.0 [pH] Normal 5-9 [facility] Comment on above: Performed By: #### U AMIC ####[facility] Dodotjnguo[address] [place], [place] [address]Dr. Margotnicole Smyth RBC 0-2 Normal 0-2 [facility] Comment on above: Performed By: #### U AMIC ####[facility] Uyktnrvtlr[address] [place], [place] [address]Dr. Tadeo Smyth SPEC GRAVITY 1.010 Normal 1.005-<=1.0 25 [facility] Comment on above: Performed By: #### U AMIC ####[facility] Lqviieyuwx[address] [place], [place] [address]Dr. Margotnicole Smyth UA PROTEIN Negative Normal NEGATIVE/ TRACE [facility] Comment on above: Performed By: #### U AMIC ####[facility] K[address]slsw[address] [place], [place] [address]Dr. Margotnicole Smyth Urobilinogen Qn (U) 0.2 {Benito'U}/dL Normal 0.2 - 1. 0 [facility] Comment on above: Performed By: #### U AMIC ####[facility] Z[address]iffquwp[address] [place] [address]Dr. Margotnicole Smyth WBC 0-2 Abnormal NONE SEEN [facility] Comment on above: Performed By: #### U AMIC ####[facility] [address] [place] [address]SeNeo Smyth Activated partial thrombopla stin time (aPTT) in platelet poor plasma by coagulation aOrdered By: Conner Griffith on 10-26-2022 aPTT Coag (PPP) [Time] 30.8 s 25.1-36.5 [facility] Albumin [Mass/volume] in Ser um or PlasmaOrdered By: Conner Griffith on 10-26-2022 Albumin [Mass/Vol] 3.6 g/dL 3.2-5.5 [facility] Automated erythrocytes count in urine sediment (number/area)Ordered By: Conner Griffith on 10-26-2022 RBC Auto (Urine sed) [#/Area] 0-1 [HPF] 0-4 [facility] Automated leukocytes count i n urine sediment (number/area)Ordered By: Conner Griffith on 10-26-2022 WBC Auto (Urine sed) [#/Area] None seen [HPF] 0-4 [facility] Basophils Auto (Bld) [#/Vol] Ordered By: Conner Griffith on 10-26-2022 Basophils (Bld) [#/Vol] 0.0 10*3/uL 0.0-0.2 [facility] Basophils/100 WBC Auto (Bld) Ordered By: Conner Griffith on 10-26-2022 Basophils/100 WBC (Bld) 0.6 % . [facility] Bilirubin Test strip Ql (U)O rdered By: Conner Griffith on 10-26-2022 Bilirubin Ql (U) Negative Negative [facility] Color Auto (U)Ordered By: Kevin Griffith on 10-26-2022 Color (U) Yellow Yellow [facility] Creatinine and Glomerular fi ltration rate.predicted panel (S/P/Bld)Ordered By: Conner Griffith on 10-26-2022 Creatinine [Mass/Vol] 0.81 mg/dL 0.44-1.03 [facility] Eosinophils Auto (Bld) [#/Vo l]Ordered By: Conner Griffith on 10-26-2022 Eosinophils (Bld) [#/Vol] 0.2 10*3/uL 0.0-0.45 [facility] Eosinophils/100 WBC Auto (Bl d)Ordered By: Conner Griffith on 10-26-2022 Eosinophils/100 WBC (Bld) 3.3 % . [facility] Erythrocyte distribution wid th Auto (RBC) [Ratio]Ordered By: Conner Griffith on 10-26-2022 Erythrocyte distribution width (RBC) [Ratio] 14.5 % 11.9-15.3 [facility] Estimated glomerular filtrat ion rate (GFR) non- AmericanOrdered By: Conner Griffith on 10-26-2022 GFR/1.73 sq M.predicted among non-blacks MDRD (S/P/Bld) [Vol rate/Area] > 60 mL/Min [facility] Globulin Calc (S) [Mass/Vol] Ordered By: Conner Griffith on 10-26-2022 Globulin (S) [Mass/Vol] 3.2 g/dL [facility] Hematocrit Auto (Bld) [Volum e fraction]Ordered By: Conner Griffith on 10-26-2022 Hematocrit (Bld) [Volume fraction] 36.7 % 34.0-46.4 [facility] Hemoglobin [Mass/volume] in BloodOrdered By: Conner Griffith on 10-26-2022 Hemoglobin (Bld) [Mass/Vol] 12.1 g/dL 11.8-15.4 [facility] Ketones Auto test strip (U) [Mass/Vol]Ordered By: Conner Griffith on 10-26-2022 Ketones (U) [Mass/Vol] Negative Negative [facility] Laboratory - Chemistry and C hemistry - challengeOrdered By: Conner Griffith on 10-26-2022 Lipase [Catalytic activity/Vol] 37.0 U/L 22-51 [facility] Laboratory - CoagulationOrde red By: Conner Griffith on 10-26-2022 PT Coag (PPP) [Time] 10.6 s 9.0-12.9 [facility] Laboratory - UrinalysisOrder ed By: Conner Griffith on 10-26-2022 Hyaline casts LM Ql (Urine sed) None seen [LPF] 0-8 [facility] Leukocytes [#/volume] correc jun for nucleated erythrocytes in Blood by Automated counOrdered By: Conner Griffith on 10-26-2022 WBC corrected for nucl RBC Auto (Bld) [#/Vol] 6.3 10*3/uL 3.8-11.6 [facility] Lymphocytes Auto (Bld) [#/Vo l]Ordered By: Conner Griffith on 10-26-2022 Lymphocytes (Bld) [#/Vol] 1.9 10*3/uL 1.00-4.8 [facility] Lymphocytes/100 WBC Auto (Bl d)Ordered By: Conner Griffith on 10-26-2022 Lymphocytes/100 WBC (Bld) 29.7 % . [facility] MCH Auto (RBC) [Entitic mass ]Ordered By: Conner Griffith on 10-26-2022 MCH (RBC) [Entitic mass] 29.3 pg 24.7-34.3 [facility] MCHC Auto (RBC) [Mass/Vol]Or dered By: Conner Griffith on 10-26-2022 MCHC (RBC) [Mass/Vol] 33.1 g/dL 32.0-35.0 [facility] MCV Auto (RBC) [Entitic vol] Ordered By: Conner Griffith on 10-26-2022 MCV (RBC) [Entitic vol] 88.5 fL 80-100 [facility] Monocyte distribution width [Entitic volume] in Blood by AutomatedOrdered By: Conner Griffith on 10-26-2022 Monocyte distribution width Auto (Bld) [Entitic vol] 16.27 % 0.00-20.00 [facility] Monocytes Auto (Bld) [#/Vol] Ordered By: Conner Griffith on 10-26-2022 Monocytes (Bld) [#/Vol] 0.4 10*3/uL 0.0-0.8 [facility] Monocytes/100 WBC Auto (Bld) Ordered By: Conner Griffith on 10-26-2022 Monocytes/100 WBC (Bld) 7.1 % . [facility] Neutrophils Auto (Bld) [#/Vo l]Ordered By: Conner Griffith on 10-26-2022 Neutrophils (Bld) [#/Vol] 3.7 10*3/uL 1.8-7.7 [facility] Neutrophils/100 WBC Auto (Bl d)Ordered By: Conner Griffith on 10-26-2022 Neutrophils/100 WBC (Bld) 59.3 % . [facility] Nitrite Test strip Ql (U)Ord ered By: Conner Griffith on 10-26-2022 Nitrite Ql (U) Negative Negative [facility] No Panel InformationOrdered By: Conner Griffith on 10-26-2022 Estimated GFR () > 60 mL/Min [facility] Comment on above: GFR estimated refere nce range: According to KDOQI guidelines, <60 ml/min/1.73m2 is sufficient to diagnose a patient with chronic kidney disease. Pharmacy Creatinine Clearance (Chem 93.01 [facility] Nucleated erythrocytes [Pres ence] in Blood by Automated countOrdered By: Conner Griffith on 10-26-2022 Nucleated RBC Auto Ql (Bld) 0.3 /100{WBC} 0-0.5 [facility] Platelet mean volume Auto (B ld) [Entitic vol]Ordered By: Conner Griffith on 10-26-2022 Platelet mean volume (Bld) [Entitic vol] 7.5 fL 6.3-10.7 [facility] Platelet poor plasma interna tional normalized ratio (INR) by coagulation assay (relatOrdered By: Conner Griffith on 10-26-2022 INR Coag (PPP) [Relative time] 0.9 {INR} [facility] Comment on above: INR Therapeutic [...] 10-26-2022 Platelets (Bld) [#/Vol] 379 10*3/uL 150-450 [facility] Protein Auto test strip (U) [Mass/Vol]Ordered By: Conner Griffith on 10-26-2022 Protein (U) [Mass/Vol] Negative Negative [facility] Protein [Mass/volume] in Ser um or PlasmaOrdered By: Conner Griffith on 10-26-2022 Protein [Mass/Vol] 6.8 g/dL 6.1-7.9 [facility] RBC Auto (Bld) [#/Vol]Ordere d By: Conner Griffith on 10-26-2022 RBC (Bld) [#/Vol] 4.14 10*6/uL 3.60-5.00 [facility] Serum or plasma alanine cooley otransferase measurement without P-5'-P (enzymatic activiOrdered By: Conner Griffith on 10-26-2022 ALT No additional P-5'-P [Catalytic activity/Vol] 18 U/L 10-60 [facility] Serum or plasma albumin/glob ulin mass ratioOrdered By: Conner Griffith on 10-26-2022 Albumin/Globulin [Mass ratio] 1.1 {ratio} [facility] Serum or plasma alkaline augustin sphatase measurement (enzymatic activity/volume)Ordered By: Conner Griffith on 10-26-2022 ALP [Catalytic activity/Vol] 121 U/L 32-92 [facility] Serum or plasma anion gap de terminationOrdered By: Conner Griffith on 10-26-2022 Anion gap [Moles/Vol] 11.3 mmol/L 6.0-15.0 [facility] Serum or plasma aspartate am inotransferase measurement (enzymatic activity/volume)Ordered By: Conner Griffith on 10-26-2022 AST [Catalytic activity/Vol] 19 U/L 10-42 [facility] Serum or plasma calcium julee urement (mass/volume)Ordered By: Conner Griffith on 10-26-2022 Calcium [Mass/Vol] 8.9 mg/dL 8.2-10.2 [facility] Serum or plasma chloride julio surement (moles/volume)Ordered By: Conner Griffith on 10-26-2022 Chloride [Moles/Vol] 108 mmol/L 95-114 [facility] Serum or plasma glucose julee urement (mass/volume)Ordered By: Conner Griffith on 10-26-2022 Glucose [Mass/Vol] 95 mg/dL 70-100 [facility] Comment on above: ADA recommended refe rence rangeRandom Glucose Reference Range is dependent on time and content of last meal. Glucose of more than 200 mg/dL in a nonstressed, ambulatory subject supports the diagnosis of Diabetes Mellitus. Serum or plasma potassium me asurement (moles/volume)Ordered By: Conner Griffith on 10-26-2022 Potassium [Moles/Vol] 3.4 mmol/L 3.5-5.1 [facility] Serum or plasma sodium measu rement (moles/volume)Ordered By: Conner Griffith on 10-26-2022 Sodium [Moles/Vol] 141 mmol/L 136-146 [facility] Serum or plasma total biliru bin measurement (mass/volume)Ordered By: Conner Griffith on 10-26-2022 Bilirubin [Mass/Vol] 0.4 mg/dL 0.3-1.2 [facility] Serum or plasma total carbon dioxide measurement (moles/volume)Ordered By: Conner Griffith on 10-26-2022 CO2 [Moles/Vol] 25.1 mmol/L 22.0-30.0 [facility] Serum or plasma urea nitroge n measurement (mass/volume)Ordered By: Conner Griffith on 10-26-2022 Urea nitrogen [Mass/Vol] 18 mg/dL 9-23 [facility] Specific gravity Auto test s trip (U) [Rel density]Ordered By: Conner Griffith on 10-26-2022 Specific gravity (U) [Rel density] 1.019 1.001-1.030 [facility] Squamous epithelial cells de tection in urine sediment by light microscopyOrdered By: Conner Griffith on 10-26-2022 Epithelial cells.squamous LM Ql (Urine sed) 1-2 [HPF] 0-2 [facility] Urine bacteria detection by automated methodOrdered By: Conner Griffith on 10-26-2022 Bacteria Auto Ql (U) None seen None Seen [facility] Urine clarity by refractomet ry automatedOrdered By: Conner Griffith on 10-26-2022 Clarity Refractometry automated (U) Clear Clear [facility] Urine glucose measurement by automated test strip (mass/volume)Ordered By: Conner Griffith on 10-26-2022 Glucose Auto test strip (U) [Mass/Vol] Normal mg/dL Normal [facility] Urine hemoglobin detection b y automated test stripOrdered By: Conner Griffith on 10-26-2022 Hemoglobin Auto test strip Ql (U) Negative Negative [facility] Urine lactic acid measuremen tOrdered By: Conner Griffith on 10-26-2022 Lactate (U) [Moles/Vol] 1.0 mmol/L 0.5-2.2 [facility] Urine leukocyte esterase det ection by automated test stripOrdered By: Conner Griffith on 10-26-2022 Leukocyte esterase Auto test strip Ql (U) 1+ Negative [facility] Urobilinogen Auto test strip (U) [Mass/Vol]Ordered By: Conner Griffith on 10-26-2022 Urobilinogen (U) [Mass/Vol] Normal mg/dL Normal [facility] WBC Auto (Bld) [#/Vol]Ordere d By: Conner Griffith on 10-26-2022 WBC (Bld) [#/Vol] 6.3 10*3/uL 3.8-11.6 [facility] pH Auto test strip (U)Ordere d By: Conner Griffith on 10-26-2022 pH (U) 6.5 [pH] 5.0-9.0 [facility] CBC AUTO DIFFon 09-21-2022 BASO # 0.0 103/ul Normal 0.0-0.1 [facility] Comment on above: Performed By: #### C BC ####[facility] [address] [place] [address]Dr. Tadeo Smyth Basophils/100 WBC (Bld) 0.4 % Normal 0.2-2.0 [facility] Comment on above: Performed By: #### C BC ####[facility] [address] [place] [address]Dr. Tadeo Smyth EO # 0.1 103/ul Normal 0.0-0.7 [facility] Comment on above: Performed By: #### C BC ####[facility] F[address]ogpqncxr[address] [place] [address]Dr. Tadeo Smyth Eosinophils/100 WBC (Bld) 1.8 % Normal 0.9-7.0 [facility] Comment on above: Performed By: #### C BC ####[facility] [address] [place], [place] [address]Dr. Tadeo Smyth Erythrocyte distribution width (RBC) [Ratio] 13.8 % Normal 11.0-15.0 [facility] Comment on above: Performed By: #### C BC ####[facility] [address] [place], [place] [address]Dr. Tadeo Smyth Hematocrit (Bld) [Volume fraction] 41.0 % Normal 36.0-48.0 [facility] Comment on above: Performed By: #### C BC ####[facility] X[address]propgxi[address] [place], [place] [address]Dr. Tadeo Smyth Hemoglobin (Bld) [Mass/Vol] 13.3 g/dL Normal 12.0-16.0 [facility] Comment on above: Performed By: #### C BC ####[facility] [address] [place], [place] [address]Dr. Tadeo Smyth IG # 0.01 10e3/ul Normal 0.00-0.03 [facility] Comment on above: Performed By: #### C BC ####[facility] [address] [place], [place] [address]Dr. Tadeo Smyth IG % 0.1 % Normal 0.0-0.5 [facility] Comment on above: Performed By: #### C BC ####[facility] [address] [place], [place] [address]Dr. Tadeo Smyth LYMPH # 1.7 103/ul Normal 1.2-3.8 [facility] Comment on above: Performed By: #### C BC ####[facility] [address] [place], [place] [address]Dr. Tadeo Smyth Lymphocytes/100 WBC (Bld) 24.8 % Normal 20.5-60.0 [facility] Comment on above: Performed By: #### C BC ####[facility] [address] [place] [address]Dr. Tadeo Smyth MANUAL DIFF REQ NO Normal [facility] Comment on above: Performed By: #### C BC ####[facility] Qcfxdaezrd[address] [place] [address]Dr. Tadeo Smyth MCH (RBC) [Entitic mass] 29.0 pg Normal 26.7-34.0 [facility] Comment on above: Performed By: #### C BC ####[facility] Telcfkrcir[address] [place] [address]Dr. Tadeo Smyth MCHC (RBC) [Mass/Vol] 32.4 g/dL Normal 29.9-35.2 [facility] Comment on above: Performed By: #### C BC ####[facility] [address]tw[address] [place] [address]Dr. Tadeo Haja MCV (RBC) [Entitic vol] 89.3 fL Normal 81.0-99.0 [facility] Comment on above: Performed By: #### C BC ####[facility] [address] [place], [place] [address]Dr. Tadeo Haja MONO # 0.5 103/ul Normal 0.3-0.8 [facility] Comment on above: Performed By: #### C BC ####[facility] Wh[address] [place], [place] [address]Dr. Margotnicole Smyth Monocytes/100 WBC (Bld) 6.9 % Normal 1.7-12.0 [facility] Comment on above: Performed By: #### C BC ####[facility] [address]ukfv[address] [place], [place] [address]Dr. Tadeo Haja NEUT # 4.5 103/ul Normal 1.4-6.5 [facility] Comment on above: Performed By: #### C BC ####[facility] [address]wewe[address] [place], [place] [address]Dr. Tadeo Smyth Neutrophils/100 WBC (Bld) 66.0 % Normal 43.0-75.0 [facility] Comment on above: Performed By: #### C BC ####[facility] L[address]fmz[address]mp[address] [place] [address]Dr. Tadeo Smyth Platelet mean volume (Bld) [Entitic vol] 8.8 fL Critically low 9.5-13.5 [facility] Comment on above: Performed By: #### C BC ####[facility] [address]sm[address] [place] [address]Dr. Tadeo Smyth PLT 384 103/ul Normal 150-450 [facility] Comment on above: Performed By: #### C BC ####[facility] [address] [place], [place] [address]Dr. Tadeo Smyth RBC 4.59 106/ul Normal 4.20-5.40 [facility] Comment on above: Performed By: #### C BC ####[facility] Z[address]xs[address] [place], [place] [address]Dr. Tadeo Smyth WBC 6.8 103/ul Normal 4.0-11.0 [facility] Comment on above: Performed By: #### C BC ####[facility] Ezscbyirwz[address] [place], [place] [address]Dr. Tadeo Smyth PROF CHEM 8 (BAS METB)on Anion gap [Moles/Vol] 13.8 mmol/L Normal [facility] Comment on above: Performed By: #### B MP ####[facility] [address]ot[address] [place], [place] [address]Dr. Tadeo Smyth Calcium [Mass/Vol] 9.6 mg/dL Normal 8.5-10.1 [facility] Comment on above: Performed By: #### B MP ####[facility] [address]orz[address] [place], [place] [address]Dr. Tadeo Smyth Chloride [Moles/Vol] 106 mmol/L Normal 98-107 [facility] Comment on above: Performed By: #### B MP ####[facility] [address] [place], [place] [address]Dr. Tadeo Smyth CO2 [Moles/Vol] 25.9 mmol/L Normal 21.0-32.0 [facility] Comment on above: Performed By: #### B MP ####[facility] [address] [place] [address]Dr. Tadeo Smyth Creatinine [Mass/Vol] 0.92 mg/dL Normal 0.55-1.02 [facility] Comment on above: Performed By: #### B MP ####[facility] [address] [place] [address]Dr. Tadeo Smyth EGFR-AF HAITIAN >60 Normal >=60 [facility] Comment on above: Performed By: #### B MP ####[facility] [address] [place], [place] [address]Dr. Tadeo Smyth EGFR-NON AF HAITIAN >60 Normal >=60 [facility] Comment on above: Performed By: #### B MP ####[facility] [address] [place], [place] [address]Dr. Tadeo Smyth Glucose [Mass/Vol] 98 mg/dL Normal 74-106 [facility] Comment on above: Performed By: #### B MP ####[facility] [address]wff[address]ued[address] [place], [place] [address]Dr. Tadeo Smyth Potassium [Moles/Vol] 3.7 mmol/L Normal 3.5-5.1 [facility] Comment on above: Performed By: #### B MP ####[facility] [address] [place], [place] [address]Dr. Tadeo Smyth Sodium [Moles/Vol] 142 mmol/L Normal 136-145 [facility] Comment on above: Performed By: #### B MP ####[facility] [address]ec[address] [place], [place] [address]Dr. Tadeo Smyth Urea nitrogen [Mass/Vol] 19.0 mg/dL Critically high 7.0-18.0 [facility] Comment on above: Performed By: #### B MP ####[facility] [address]clv[address] [place], [place] [address]Dr. Tadeo Smyth Urea nitrogen/Creatinine [Mass ratio] 20.7 mg/mg Normal [facility] Comment on above: Performed By: #### B MP ####[facility] Bebxivcxib[address] [place], [place] [address]Dr. Tadeo Smyth XR KUB 1 VIEWon 09-21-2022 XR KUB 1 VIEW Normal [facility] AMYLASEon 09-18-2022 Amylase [Catalytic activity/Vol] 58 U/L Normal 25-115 [facility] Comment on above: Performed By: #### L IPA, CMP, VIJI ####[facility] [address] [place] [address]Dr. Tadeo Haja CBC AUTO DIFFon 09-18-2022 BASO # 0.0 103/ul Normal 0.0-0.1 [facility] Comment on above: Performed By: #### C BC ####[facility] Zzwmhfojbq[address] [place] [address]Dr. Tadeo Smyth Basophils/100 WBC (Bld) 0.3 % Normal 0.2-2.0 [facility] Comment on above: Performed By: #### C BC ####[facility] Lmkxtdovyx[address] [place], [place] [address]Dr. Tadeo Smyth EO # 0.1 103/ul Normal 0.0-0.7 [facility] Comment on above: Performed By: #### C BC ####[facility] Mdilcbvkzw9[address] [place], [place] [address]Dr. Tadeo Smyth Eosinophils/100 WBC (Bld) 1.8 % Normal 0.9-7.0 [facility] Comment on above: Performed By: #### C BC ####[facility] Quzambpnzp[address] [place], [place] [address]Dr. Tadeo Smyth Erythrocyte distribution width (RBC) [Ratio] 13.7 % Normal 11.0-15.0 [facility] Comment on above: Performed By: #### C BC ####[facility] Dglrxrvons8[address] [place], [place] [address]Dr. Tadeo Smyth Hematocrit (Bld) [Volume fraction] 37.4 % Normal 36.0-48.0 [facility] Comment on above: Performed By: #### C BC ####[facility] Sxzcmaxwbd6[address] [place] [address]Dr. Tadeo Smyth Hemoglobin (Bld) [Mass/Vol] 12.3 g/dL Normal 12.0-16.0 [facility] Comment on above: Performed By: #### C BC ####[facility] Gpcrtxasdg46[address] [place] [address]Dr. Tadeo Smyth IG # 0.02 10e3/ul Normal 0.00-0.03 [facility] Comment on above: Performed By: #### C BC ####[facility] Ajehljrieb[address] [place] [address]Dr. Tadeo Smyth IG % 0.3 % Normal 0.0-0.5 [facility] Comment on above: Performed By: #### C BC ####[facility] Urtqshhtfb[address] [place], [place] [address]Dr. Tadeo Smyth LYMPH # 2.2 103/ul Normal 1.2-3.8 [facility] Comment on above: Performed By: #### C BC ####[facility] Lpqjotrkbk99[address] [place], [place] [address]Dr. Tadeo Smyth Lymphocytes/100 WBC (Bld) 29.3 % Normal 20.5-60.0 [facility] Comment on above: Performed By: #### C BC ####[facility] Abtphvpslw[address] [place], [place] [address]Dr. Tadeo Smyth MANUAL DIFF REQ NO Normal [facility] Comment on above: Performed By: #### C BC ####[facility] Ahouuifjoj029[address] [place] [address]Dr. Tadeo Smyth MCH (RBC) [Entitic mass] 29.0 pg Normal 26.7-34.0 [facility] Comment on above: Performed By: #### C BC ####[facility] Ftewmaqggp[address] [place], [place] [address]Dr. Tadeo Smyth MCHC (RBC) [Mass/Vol] 32.9 g/dL Normal 29.9-35.2 [facility] Comment on above: Performed By: #### C BC ####[facility] Eqmabshglv14[address] [place] [address]Dr. Tadeo Smyth MCV (RBC) [Entitic vol] 88.2 fL Normal 81.0-99.0 [facility] Comment on above: Performed By: #### C BC ####[facility] Zajgwbfvtp04[address] [place] [phone]. Tadeo Smyth MONO # 0.5 103/ul Normal 0.3-0.8 [facility] Comment on above: Performed By: #### C BC ####[facility] Uffukstqbi8[address] [place] [phone]. Tadeo Smyth Monocytes/100 WBC (Bld) 6.4 % Normal 1.7-12.0 [facility] Comment on above: Performed By: #### C BC ####[facility] Kwydksfvfy5[address] [place] [phone]. Tadeo Smyth NEUT # 4.7 103/ul Normal 1.4-6.5 [facility] Comment on above: Performed By: #### C BC ####[facility] Gxlowwaqme538[address] [place], [place] [address]Dr. Tadeo Smyth Neutrophils/100 WBC (Bld) 61.9 % Normal 43.0-75.0 [facility] Comment on above: Performed By: #### C BC ####[facility] Dhnlaydtkl[address] [place], [place] [address]Dr. Tadeo Smyth Platelet mean volume (Bld) [Entitic vol] 9.0 fL Critically low 9.5-13.5 [facility] Comment on above: Performed By: #### C BC ####[facility] Gimaltowsh2[address] [place] [phone]. Tadeo Smyth PLT 395 103/ul Normal 150-450 [facility] Comment on above: Performed By: #### C BC ####[facility] Ljfnkfufcr4293 [place] [phone]. Tadeo Smyth RBC 4.24 106/ul Normal 4.20-5.40 [facility] Comment on above: Performed By: #### C BC ####[facility] Usmwkocitv8231 [place] [phone]. Tadeo Smyth WBC 7.6 103/ul Normal 4.0-11.0 [facility] Comment on above: Performed By: #### C BC ####[facility] Gzqluvnaqb9[address] [place], [place] [address]Dr. Margotnicole Haja CT ABD/PELV W CONon 09-18-[address] ABD/PELV W CON Normal [facility] ER URINE PROFILEon 3 Bilirubin Ql (U) SMALL Abnormal NEGATIVE [facility] Comment on above: Performed By: #### Matthew FRANCISCO UMICRO ####[facility] Bitmemeohw710[address] [place], [place] [address]Dr. Tadeo Smyth Clarity (U) CLEAR Normal CLEAR [facility] Comment on above: Performed By: #### Matthew FRANCISCO UMICRO ####[facility] Dsrqdkcytw1857[address] [place], [place] [address]Dr. Tadeo Smyth Color (U) DK. YELLOW Normal YELLOW [facility] Comment on above: Performed By: #### Matthew FRANCISCO UMICRO ####[facility] Qyqnclzbgy8590[address] [place], [place] [address]Dr. Tadeo Smyth ERUAHD A micrscopic examina tion will be performed if indicated. Normal [facility] Comment on above: Performed By: #### Matthew FRANCISCO UMICRO ####[facility] Mtivmvqzmk709[address] [place], [place] [address]Dr. Tadeo Smyth Glucose Ql (U) Negative Normal NEGATIVE [facility] Comment on above: Performed By: #### Matthew FRANCISCO UMICRO ####[facility] Xeyuguhand6259[address] [place], [place] [address]Dr. Tadeo Smyth Hemoglobin Ql (U) SMALL Abnormal NEGATIVE [facility] Comment on above: Performed By: #### Matthew FRANCISCO UMICRO ####[facility] Pmwqrbhcoy525[address] [place], [place] [address]Dr. Tadeo Smyth Ketones Ql (U) Negative Normal NEGATIVE [facility] Comment on above: Performed By: #### Matthew FRANCISCO UMICRO ####[facility] Gpzzjzwwpp3215[address] [place], [place] [address]Dr. Tadeo Smyth LEUKOCYTES Negative Normal NEGATIVE [facility] Comment on above: Performed By: #### SANDRO MERCHANTRO ####[facility] Utucfmthuj36[address] [place] [address]Dr. Tadeo Smyth Nitrite Ql (U) Negative Normal NEGATIVE [facility] Comment on above: Performed By: #### SANDRO MERCHANTRO ####[facility] Fuhrblcafo48[address] [place] [address]Dr. Tadeo Smyth pH (U) 5.5 [pH] Normal 5-9 [facility] Comment on above: Performed By: #### KAROL MERCHANT ####[facility] Cpcpjoevzl69[address] [place] [address]Dr. Tadeo Smyth SPEC GRAVITY >=1.030 Abnormal 1.005-<=1.0 25 [facility] Comment on above: Performed By: #### SANDRO MERCHANTRO ####[facility] Mdttroixnf9767[address] [place], [place] [address]Dr. Tadeo Smyth UA PROTEIN TRACE Normal NEGATIVE/ TRACE [facility] Comment on above: Performed By: #### KAROL MERCHANT ####[facility] Bfoulzojnq607[address] [place], [place] [address]Dr. Tadeo Smyth UR MICRO IND INDICATED Normal [facility] Comment on above: Performed By: #### KAROL MERCHANT ####[facility] Rcqbhnqwzm[address] [place], [place] [address]Dr. Tadeo Smyth Urobilinogen Qn (U) 0.2 {Benito'U}/dL Normal 0.2 - 1. 0 [facility] Comment on above: Performed By: #### SANDRO MERCHANTRO ####[facility] Aogopuquei12[address] [place], [place] [address]Dr. Tadeo Smyth LACTATE/LACTIC ACIDon 2022 Lactate [Moles/Vol] 1.1 mmol/L Normal 0.4-1.9 [facility] Comment on above: Performed By: #### L ACT ####[facility] Tkiaawuqgr15[address] [place], [place] [address]Dr. Tadeo Smyth LIPASEon 09-18-2022 Lipase [Catalytic activity/Vol] 75.0 U/L Normal 73.0-393.0 [facility] Comment on above: Performed By: #### L IPA CMP, VIJI ####[facility] Kptnz[address]chik[address] [place] [address]Dr. Tadeo Smyth PROF 14(COMP METB)on 023 Albumin [Mass/Vol] 3.4 g/dL Normal 3.4-5.0 [facility] Comment on above: Performed By: #### L IPA CMP, VIJI ####[facility] Amzhlgvwan55[address] [place] [address]Dr. Tadeo Smyth Albumin/Globulin [Mass ratio] 0.9 {ratio} Normal [facility] Comment on above: Performed By: #### L IPA CMP, VIJI ####[facility] Ggaddaqaod[address] [place], [place] [address]Dr. Tadeo Smyth ALP [Catalytic activity/Vol] 164 U/L Critically high 46-116 [facility] Comment on above: Performed By: #### L IPA CMP, VIJI ####[facility] Rliuuayozb39[address] [place], [place] [address]Dr. Tadeo Smyth ALT [Catalytic activity/Vol] 29 U/L Normal 14-59 [facility] Comment on above: Performed By: #### L IPA CMP, VIJI ####[facility] Hhlrwiwgkl2149[address] [place], [place] [address]Dr. Tadeo Smyth Anion gap [Moles/Vol] 12.3 mmol/L Normal [facility] Comment on above: Performed By: #### L IPA CMP, VIJI ####[facility] Iwxgtsalul7958 [place] [address]Dr. Tadeo Smyth AST [Catalytic activity/Vol] 30 U/L Normal 15-37 [facility] Comment on above: Performed By: #### L IPA CMP, VIJI ####[facility] Qvygwtsuje6533[address] [place], [place] [address]Dr. Tadeo Smyth Bilirubin [Mass/Vol] 0.3 mg/dL Normal 0.2-1.0 [facility] Comment on above: Performed By: #### L IPA CMP, VIJI ####[facility] Rtrytooqrj7590 [place] [address]Dr. Tadeo Smyth Calcium [Mass/Vol] 8.9 mg/dL Normal 8.5-10.1 [facility] Comment on above: Performed By: #### L IPA, CMP, VIJI ####[facility] Ztnimajwxh3181 [place] [address]Dr. Tadeo Smyth Chloride [Moles/Vol] 103 mmol/L Normal 98-107 [facility] Comment on above: Performed By: #### L IPA, CMP, VIJI ####[facility] Gmbgndxjnz2589[address] [place], [place] [address]Dr. Tadeo Smyth CO2 [Moles/Vol] 27.8 mmol/L Normal 21.0-32.0 [facility] Comment on above: Performed By: #### L IPA, CMP, VIJI ####[facility] Petxyvwcnw16[address] [place], [place] [address]Dr. Tadeo Smyth Creatinine [Mass/Vol] 0.89 mg/dL Normal 0.55-1.02 [facility] Comment on above: Performed By: #### L IPA, CMP, VIJI ####[facility] Ezfrharbav7[address] [place], [place] [address]Dr. Tadeo Smyth EGFR-AF HAITIAN >60 Normal >=60 [facility] Comment on above: Performed By: #### L IPA, CMP, VIJI ####[facility] Ririncfwrz89[address] [place], [place] [address]Dr. Tadeo Smyth EGFR-NON AF HAITIAN >60 Normal >=60 [facility] Comment on above: Performed By: #### L IPA, CMP, VIJI ####[facility] Vcwadzehad[address] [place], [place] [address]Dr. Tadeo Smyth Globulin (S) [Mass/Vol] 3.9 g/dL Normal [facility] Comment on above: Performed By: #### L IPA, CMP, VIJI ####[facility] Wktgduqcmb[address]22[address] [place], [place] [address]Dr. Tadeo Smyth Glucose [Mass/Vol] 96 mg/dL Normal 74-106 [facility] Comment on above: Performed By: #### L IPA, CMP, VIJI ####[facility] Bpge[address]ytzn[address] [place] [address]Dr. Tadeo Smyth Potassium [Moles/Vol] 4.1 mmol/L Normal 3.5-5.1 [facility] Comment on above: Performed By: #### L IPA, CMP, VIJI ####[facility] Ysunyodfys[address] [place] [address]Dr. Tadeo Smyth Protein [Mass/Vol] 7.3 g/dL Normal 6.4-8.2 [facility] Comment on above: Performed By: #### L IPA, CMP, VIJI ####[facility] Kriznwjcbp2084 [place] [address]Dr. Tadeo Smyth Sodium [Moles/Vol] 139 mmol/L Normal 136-145 [facility] Comment on above: Performed By: #### L IPA, CMP, VIJI ####[facility] Lwldljbxhq[address] [place], [place] [address]Dr. Tadeo Smyth Urea nitrogen [Mass/Vol] 19.0 mg/dL Critically high 7.0-18.0 [facility] Comment on above: Performed By: #### L IPA, CMP, VIJI ####[facility] Gbnmhfpezy[address] [place], [place] [address]Dr. Tadeo Smyth Urea nitrogen/Creatinine [Mass ratio] 21.3 mg/mg Normal [facility] Comment on above: Performed By: #### L IPA, CMP, VIJI ####[facility] Fbfxqcdoxw[address] [place], [place] [address]Dr. Tadeo Smyth URINE MICROSCOPIC ONLYon BACTERIA TRACE Abnormal NONE SEEN [facility] Comment on above: Performed By: #### SANDRO MERCHANTRO ####[facility] Uavikzgruw[address] [place], [place] [address]Dr. Tadeo Smyth Bacteria identified Cx Nom (U) NOT INDICATED Normal [facility] Comment on above: Performed By: #### SANDRO MERCHANTRO ####[facility] Oharlforxj9174 [place] [address]Dr. Tadeo Smyth CAST NONE SEEN Normal NONE SEEN [facility] Comment on above: Performed By: #### SANDRO MERCHANTRO ####[facility] Gsodvlteeo97[address] [place] [address]Dr. Tadeo Smyth Crystals LM Nom (Urine sed) SEEN Abnormal NONE SEEN [facility] Comment on above: Performed By: #### SANDRO MERCHANTRO ####[facility] Pkpzsvgwbc0587 [place] [address]Dr. Tadeo Smyth Epithelial cells LM Ql (Urine sed) RARE Normal NONE SEEN /RARE [facility] Comment on above: Performed By: #### SANDRO MERCHANTRO ####[facility] Mjbbondrvw[address] [place], [place] [address]Dr. Tadeo Smyth MUCOUS TRACE Abnormal NONE SEEN [facility] Comment on above: Performed By: #### SANDRO MERCHANTRO ####[facility] Qudgfhayif76[address] [place], [place] [address]Dr. Tadeo Smyth RBC 0-2 Normal 0-2 [facility] Comment on above: Performed By: #### Matthew FRANCISCO CHINEDURO ####[facility] Qfunmxxhon232[address] [place], [place] [address]Dr. Tadeo Smyth WBC 0-2 Abnormal NONE SEEN [facility] Comment on above: Performed By: #### SANDRO MERCHANTRO ####[facility] Hrowiqcwjo343[address] [place], [place] [address]Dr. Tadeo Smyth CBC AUTO DIFFon 09-14-2022 BASO # 0.0 103/ul Normal 0.0-0.1 [facility] Comment on above: Performed By: #### C BC ####[facility] Mbyjpvcidd694[address] [place], [place] [address]Dr. Tadeo Smyth Basophils/100 WBC (Bld) 0.3 % Normal 0.2-2.0 [facility] Comment on above: Performed By: #### C BC ####[facility] Onsomojxoq614[address] [place], [place] [address]Dr. Tadeo Smyth EO # 0.2 103/ul Normal 0.0-0.7 [facility] Comment on above: Performed By: #### C BC ####[facility] Ytehjmriny024[address] [place] [phone]. Tadeo Smyth Eosinophils/100 WBC (Bld) 1.1 % Normal 0.9-7.0 [facility] Comment on above: Performed By: #### C BC ####[facility] Mjaqheypey5278 [place] [address]Dr. Tadeo Smyth Erythrocyte distribution width (RBC) [Ratio] 13.7 % Normal 11.0-15.0 [facility] Comment on above: Performed By: #### C BC ####[facility] Udsmearmix[address] [place], [place] [address]Dr. Tadeo Smyth Hematocrit (Bld) [Volume fraction] 41.3 % Normal 36.0-48.0 [facility] Comment on above: Performed By: #### C BC ####[facility] Mtdhuuisye0165[address] [place], [place] [address]Dr. Tadeo Smyth Hemoglobin (Bld) [Mass/Vol] 13.6 g/dL Normal 12.0-16.0 [facility] Comment on above: Performed By: #### C BC ####[facility] Gjbiuloaeg[address] [place], [place] [address]Dr. Tadeo Smyth IG # 0.05 10e3/ul Critically high 0.00-0.03 [facility] Comment on above: Performed By: #### C BC ####[facility] Skdezggqys915[address] [place], [place] [address]Dr. Tadeo Smyth IG % 0.4 % Normal 0.0-0.5 [facility] Comment on above: Performed By: #### C BC ####[facility] Ncfvnpzmbr8[address] [place], [place] [address]Dr. Tadeo Smyth LYMPH # 2.2 103/ul Normal 1.2-3.8 [facility] Comment on above: Performed By: #### C BC ####[facility] Zxyhuwrrgg9925[address] [place], [place] [address]Dr. Tadeo Smyth Lymphocytes/100 WBC (Bld) 16.3 % Critically low 20.5-60.0 [facility] Comment on above: Performed By: #### C BC ####[facility] Dlrgggwwnt[address] [place] [phone]. Tadeo Smyth MANUAL DIFF REQ NO Normal [facility] Comment on above: Performed By: #### C BC ####[facility] Tjekmklrgk8102 [place] [phone]. Tadeo Haja MCH (RBC) [Entitic mass] 28.9 pg Normal 26.7-34.0 [facility] Comment on above: Performed By: #### C BC ####[facility] Whopgtttxs5918 [place] [phone]. Tadeo Smyth MCHC (RBC) [Mass/Vol] 32.9 g/dL Normal 29.9-35.2 [facility] Comment on above: Performed By: #### C BC ####[facility] Nefzqswjiz8764[address] [place], [place] [address]Dr. Margotnicole Smyth MCV (RBC) [Entitic vol] 87.9 fL Normal 81.0-99.0 [facility] Comment on above: Performed By: #### C BC ####[facility] Qpntcszady277[address] [place], [place] [address]Dr. Tadeo Haja MONO # 0.7 103/ul Normal 0.3-0.8 [facility] Comment on above: Performed By: #### C BC ####[facility] Tbnzhptafk4228 [place] [address]Dr. Margotnicole Smyth Monocytes/100 WBC (Bld) 5.1 % Normal 1.7-12.0 [facility] Comment on above: Performed By: #### C BC ####[facility] Wqvqqtieqx[address] [place], [place] [address]Dr. Margotnicole Smyth NEUT # 10.3 103/ul Critically high 1.4-6.5 [facility] Comment on above: Performed By: #### C BC ####[facility] Ybjepvvdms[address] [place], [place] [address]Dr. Tadeo Smyth Neutrophils/100 WBC (Bld) 76.8 % Critically high 43.0-75.0 [facility] Comment on above: Performed By: #### C BC ####[facility] Dtnwrmpsmg2965 [place] [address]Dr. Margotnicole Haja Platelet mean volume (Bld) [Entitic vol] 8.8 fL Critically low 9.5-13.5 [facility] Comment on above: Performed By: #### C BC ####[facility] Wpqkzwfhoh[address] [place], [place] [address]Dr. Tadeo Haja PLT 438 103/ul Normal 150-450 [facility] Comment on above: Performed By: #### C BC ####[facility] Acvvufaxcw8925[address] [place], [place] [address]Dr. Margotnicole Haja RBC 4.70 106/ul Normal 4.20-5.40 [facility] Comment on above: Performed By: #### C BC ####[facility] Brnuxjpwpf5[address] [place], [place] [address]Dr. Tadeo Smyth WBC 13.4 103/ul Critically high 4.0-11.0 [facility] Comment on above: Performed By: #### C BC ####[facility] Cpnehfajxd9[address] [place], [place] [address]Dr. Tadeo Smyth ER URINE PROFILEon 3 Bilirubin Ql (U) Negative Normal NEGATIVE [facility] Comment on above: Performed By: #### KAROL MERCHANT ####[facility] Qpzfgbzhdg[address] [place], [place] [address]Dr. Tadeo Smyth Clarity (U) CLEAR Normal CLEAR [facility] Comment on above: Performed By: #### SANDRO MERCHANTRO ####[facility] Keewzgioei184[address] [place], [place] [address]Dr. Tadeo Smyth Color (U) LT. YELLOW Normal YELLOW [facility] Comment on above: Performed By: #### SANDRO MERCHANTRO ####[facility] Tlkgfyjsql9[address] [place], [place] [address]Dr. Tadeo Smyth ERUAHD A micrscopic examina tion will be performed if indicated. Normal [facility] Comment on above: Performed By: #### KAROL MERCHANT ####[facility] Btvbdtjhye12[address] [place] [address]Dr. Tadeo Smyth Glucose Ql (U) Negative Normal NEGATIVE [facility] Comment on above: Performed By: #### KAROL MERCHANT ####[facility] Dotxlfvgoa9[address] [place], [place] [address]Dr. Margotnicole Smyth Hemoglobin Ql (U) TRACE-INTACT Abnormal NEGATIVE [facility] Comment on above: Performed By: #### KAROL MERCHANT ####[facility] Jximjmhynk04[address] [place], [place] [address]Dr. Tadeo Smyth Ketones Ql (U) Negative Normal NEGATIVE [facility] Comment on above: Performed By: #### KAROL MERCHANT ####[facility] Vhqijvznln7[address] [place], [place] [address]Dr. Tadeo Smyth LEUKOCYTES Negative Normal NEGATIVE [facility] Comment on above: Performed By: #### KAROL MERCHANT ####[facility] Gdlqhhtbho234[address] [place], [place] [address]Dr. Margotnicole Haja Nitrite Ql (U) Negative Normal NEGATIVE [facility] Comment on above: Performed By: #### KAROL MERCHANT ####[facility] Piepkdbynq[address] [place], [place] [address]Dr. Tadeo Smyth pH (U) 6.5 [pH] Normal 5-9 [facility] Comment on above: Performed By: #### KAROL MERCHANT ####[facility] Wuiajusjlp[address] [place], [place] [address]Dr. Tadeo Smyth SPEC GRAVITY 1.020 Normal 1.005-<=1.0 25 [facility] Comment on above: Performed By: #### KAROL MERCHANT ####[facility] Enlwzghqom[address] [place], [place] [address]Dr. Tadeo Smyth UA PROTEIN Negative Normal NEGATIVE/ TRACE [facility] Comment on above: Performed By: #### KAROL MERCHANT ####[facility] Bzfwzeewlk[address] [place], [place] [address]Dr. Tadeo Smyth UR MICRO IND INDICATED Normal [facility] Comment on above: Performed By: #### RANDI MERCHANTICRO ####[facility] G[address]oudbtjpp70[address] [place] [address]Dr. Tadeo Smyth Urobilinogen Qn (U) 0.2 {Benito'U}/dL Normal 0.2 - 1. 0 [facility] Comment on above: Performed By: #### KAROL MERCHANT ####[facility] Occctmyjoy[address] [place] [address]Dr. Tadeo Smyth LIPASEon 09-14-2022 Lipase [Catalytic activity/Vol] 117.0 U/L Normal 73.0-393.0 [facility] Comment on above: Performed By: #### H STROPN, CMP, LIPA ####[facility] Jgatnceouw038[address] [place] [address]Dr. Tadeo Smyth PROF 14(COMP METB)on 023 Albumin [Mass/Vol] 3.5 g/dL Normal 3.4-5.0 [facility] Comment on above: Performed By: #### H STROPN, CMP, LIPA ####[facility] Mmaxmyganc2642 [place] [address]Dr. Tadeo Smyth Albumin/Globulin [Mass ratio] 0.8 {ratio} Normal [facility] Comment on above: Performed By: #### H STROPN, CMP, LIPA ####[facility] Rdfhddbjaw17[address] [place] [address]Dr. Tadeo Smyth ALP [Catalytic activity/Vol] 180 U/L Critically high 46-116 [facility] Comment on above: Performed By: #### H STROPN, CMP, LIPA ####[facility] [address] [place] [address]Dr. Tadeo Smyth ALT [Catalytic activity/Vol] 25 U/L Normal 14-59 [facility] Comment on above: Performed By: #### H STROPN, CMP, LIPA ####[facility] [address]so[address] [place] [address]Dr. Tadeo Smyth Anion gap [Moles/Vol] 14.4 mmol/L Normal [facility] Comment on above: Performed By: #### H STROPN, CMP, LIPA ####[facility] [address]we[address] [place] [address]Dr. Tadeo Smyth AST [Catalytic activity/Vol] 14 U/L Critically low 15-37 [facility] Comment on above: Performed By: #### H STROPN, CMP, LIPA ####[facility] T[address]fs[address] [place] [address]Dr. Tadeo Smyth Bilirubin [Mass/Vol] 0.2 mg/dL Normal 0.2-1.0 [facility] Comment on above: Performed By: #### H STROPN, CMP, LIPA ####[facility] Zsx[address]jes[address] [place], [place] [address]Dr. Tadeo Smyth Calcium [Mass/Vol] 9.4 mg/dL Normal 8.5-10.1 [facility] Comment on above: Performed By: #### H STROPN, CMP, LIPA ####[facility] [address] [place], [place] [address]Dr. Tadeo Smyth Chloride [Moles/Vol] 107 mmol/L Normal 98-107 [facility] Comment on above: Performed By: #### H STROPN, CMP, LIPA ####[facility] Ioq[address]cl[address] [place], [place] [address]Dr. Tadeo Smyth CO2 [Moles/Vol] 23.9 mmol/L Normal 21.0-32.0 [facility] Comment on above: Performed By: #### H STROPN, CMP, LIPA ####[facility] [address] [place], [place] [address]Dr. Tadeo Smyth Creatinine [Mass/Vol] 0.91 mg/dL Normal 0.55-1.02 [facility] Comment on above: Performed By: #### H STROPN, CMP, LIPA ####[facility] [address] [place] [address]Dr. Tadeo Smyth EGFR-AF HAITIAN >60 Normal >=60 [facility] Comment on above: Performed By: #### H STROPN, CMP, LIPA ####[facility] [address] [place] [id number]. Tadeo Smyth EGFR-NON AF HAITIAN >60 Normal >=60 [facility] Comment on above: Performed By: #### H STROPN, CMP, LIPA ####[facility] Th[address]muzsi[address] [place] [address]Dr. Tadeo Smyth Globulin (S) [Mass/Vol] 4.2 g/dL Normal [facility] Comment on above: Performed By: #### H STROPN, CMP, LIPA ####[facility] [address]upfh[address] [place] [address]Dr. Tadeo Smyth Glucose [Mass/Vol] 101 mg/dL Normal 74-106 [facility] Comment on above: Performed By: #### H STROPN, CMP, LIPA ####[facility] [address] [place] [address]Dr. Tadeo Smyth Potassium [Moles/Vol] 3.3 mmol/L Critically low 3.5-5.1 [facility] Comment on above: Performed By: #### H STROPN, CMP, LIPA ####[facility] [address]oon[address] [place] [address]Dr. Tadeo Smyth Protein [Mass/Vol] 7.7 g/dL Normal 6.4-8.2 [facility] Comment on above: Performed By: #### H STROPN, CMP, LIPA ####[facility] [address]rimz[address] [place] [address]Dr. Tadeo Smyth Sodium [Moles/Vol] 142 mmol/L Normal 136-145 [facility] Comment on above: Performed By: #### H STROPN, CMP, LIPA ####[facility] Tirketcqbd[address] [place] [address]Dr. Tadeo Smyth Urea nitrogen [Mass/Vol] 17.0 mg/dL Normal 7.0-18.0 [facility] Comment on above: Performed By: #### H STROPN, CMP, LIPA ####[facility] [address] [place] [address]Dr. Tadeo Smyth Urea nitrogen/Creatinine [Mass ratio] 18.7 mg/mg Normal [facility] Comment on above: Performed By: #### H STROYAZMIN CMP, LIPA ####[facility] [address] [place] [address]Dr. Tadeo Smyth TROPONIN, HIGH SENSITIVITYon 09-14-2022 HSTROP 46.6 pg/mL Normal 4.0-51.3 [facility] Comment on above: Result Comment: CUT- OFF POINTS HAVE BEEN ESTABLISHED BASED ON THE FOURTH UNIVERSAL DEFINITIONS OF MYOCARDIALINFARCTION. THE UPPER REFERENCE LIMIT (URL) OF TROPONIN, DEFINED THE 99TH PERCENTILE OFcTnI DISTRIBUTION IN A REFERENCE POPULATION, HAS BEEN CONFIRMED THE DECISION THRESHOLDFOR [place] DIAGNOSIS. Performed By: #### H HENRY CMP, LIPA ####[facility] [address] [place] [address]Dr. Tadeo Smyth URINE MICROSCOPIC ONLYon BACTERIA NONE SEEN Normal NONE SEEN [facility] Comment on above: Performed By: #### SANDRO MERCHANTRO ####[facility] W[address]wh[address]rze[address] [place], [place] [address]Dr. Tadeo Smyth Bacteria identified Cx Nom (U) NOT INDICATED Normal [facility] Comment on above: Performed By: #### SANDRO MERCHANTRO ####[facility] [address]jsdh[address] [place] [address]Dr. Tadeo Smyth CAST NONE SEEN Normal NONE SEEN [facility] Comment on above: Performed By: #### SANDRO MERCHANTRO ####[facility] V[address]xsedj[address] [place] [address]Dr. Tadeo Smtyh Crystals LM Nom (Urine sed) NONE SEEN Normal NONE SEEN [facility] Comment on above: Performed By: #### Matthew FRANCISCO UMICRO ####[facility] [address]qjmlcxk[address] [place] [address]Dr. Tadeo Smyth Epithelial cells LM Ql (Urine sed) FEW Abnormal NONE SEEN /RARE [facility] Comment on above: Performed By: #### Matthew FRANCISCO UMICRO ####[facility] Xsx[address]jaqh[address] [place] [address]Dr. Tadeo Smyth MUCOUS MODERATE Abnormal NONE SEEN [facility] Comment on above: Performed By: #### KAROL MERCHANT ####[facility] [address]trevr[address] [place] [id number]. Tadeo Smyth RBC 0-2 Normal 0-2 [facility] Comment on above: Performed By: #### KAROL MERCHANT ####[facility] [address] [place] [phone]. Tadeo Smyth WBC NONE SEEN Normal NONE SEEN [facility] Comment on above: Performed By: #### KAROL MERCHANT ####[facility] [address] [place] [address]Dr. Tadeo Smyth XR ABD FLAT UP_PA Kasey 09-14 XR ABD FLAT UP_PA CH Normal [facility] VC COMP CONSULTATIONon 09-06 VC COMP CONSULTATION Normal [facility] VC VENOUS REFLUX MACARIO LMTon 0 09-06-2022 VC VENOUS REFLUX MACARIO LMT Normal [facility] XR KUB 1 VIEWon 08-18-2022 XR KUB 1 VIEW Normal [facility] US RUBENS DOP LEG RTon 08-11-20 US RUBENS DOP LEG RT Normal [facility] AMYLASEon 08-08-2022 Amylase [Catalytic activity/Vol] 64 U/L Normal 25-115 [facility] Comment on above: Performed By: #### C MP, VIJI, LIPA, CMADM ####[facility] Bv[address]rqjcgn[address] [place] [address]Dr. Tadeo Smyth CARDIAC NORA ADMITon 022 CK [Catalytic activity/Vol] 127 U/L Normal 26-192 [facility] Comment on above: Performed By: #### C MP, VIJI, LIPA, CMADM ####[facility] Ocpedjocgp[address] [place] [address]Dr. Tadeo Smyth CK.MB [Mass/Vol] 1.71 ng/mL Normal <=3.60 [facility] Comment on above: Performed By: #### C MP, VIJI, LIPA, CMADM ####[facility] [address]jcecbs[address] [place] [address]Dr. Tadeo Smyth HSTROP 36.7 pg/mL Normal 4.0-51.3 [facility] Comment on above: Result Comment: CUT- OFF POINTS HAVE BEEN ESTABLISHED BASED ON THE FOURTH UNIVERSAL DEFINITIONS OF MYOCARDIALINFARCTION. THE UPPER REFERENCE LIMIT (URL) OF TROPONIN, DEFINED THE 99TH PERCENTILE OFcTnI DISTRIBUTION IN A REFERENCE POPULATION, HAS BEEN CONFIRMED THE DECISION THRESHOLDFOR [place] DIAGNOSIS. Performed By: #### C MP, VIJI, LIPA, CMADM ####[facility] Tr[address]oknsbm[address] [place] [address]Dr. Tadeo Smyth AAKASH 23 ng/mL Normal 9-82 [facility] Comment on above: Performed By: #### C MP, VIJI, LIPA, CMADM ####[facility] Snmu[address]ztt[address] [place], [place] [address]Dr. Tadeo Smyth CBC AUTO DIFFon 08-08-2022 BASO # 0.0 103/ul Normal 0.0-0.1 [facility] Comment on above: Performed By: #### C BC ####[facility] Nmnelxcxjn[address] [place], [place] [address]Dr. Tadeo Smyth Basophils/100 WBC (Bld) 0.4 % Normal 0.2-2.0 [facility] Comment on above: Performed By: #### C BC ####[facility] Hjxccbiy[address] [place], [place] [address]Dr. Tadeo Smyth EO # 0.1 103/ul Normal 0.0-0.7 [facility] Comment on above: Performed By: #### C BC ####[facility] Bnkgrwobdp[address] [place], [place] [address]Dr. Tadeo Smyth Eosinophils/100 WBC (Bld) 1.5 % Normal 0.9-7.0 [facility] Comment on above: Performed By: #### C BC ####[facility] Qrriysslea[address] [place], [place] [address]Dr. Tadeo Smyth Erythrocyte distribution width (RBC) [Ratio] 13.5 % Normal 11.0-15.0 [facility] Comment on above: Performed By: #### C BC ####[facility] Rpvufeosfz[address] [place] [address]Dr. Tadeo Smyth Hematocrit (Bld) [Volume fraction] 37.0 % Normal 36.0-48.0 [facility] Comment on above: Performed By: #### C BC ####[facility] Ktg[address]ljckki60[address] [place] [address]Dr. Tadeo Smyth Hemoglobin (Bld) [Mass/Vol] 12.0 g/dL Normal 12.0-16.0 [facility] Comment on above: Performed By: #### C BC ####[facility] Bwdkgctorc[address] [place], [place] [address]Dr. Tadeo Smyth IG # 0.02 10e3/ul Normal 0.00-0.03 [facility] Comment on above: Performed By: #### C BC ####[facility] Zzueuadcxz[address] [place], [place] [address]Dr. Tadeo Smyth IG % 0.3 % Normal 0.0-0.5 [facility] Comment on above: Performed By: #### C BC ####[facility] [address] [place], [place] [address]Dr. Tadeo Smyth LYMPH # 2.0 103/ul Normal 1.2-3.8 [facility] Comment on above: Performed By: #### C BC ####[facility] Omzfbtzmmr[address] [place], [place] [address]Dr. Tadeo Smyth Lymphocytes/100 WBC (Bld) 27.9 % Normal 20.5-60.0 [facility] Comment on above: Performed By: #### C BC ####[facility] [address]ecteegxbc[address] [place], [place] [address]Dr. Tadeo Smyth MANUAL DIFF REQ NO Normal [facility] Comment on above: Performed By: #### C BC ####[facility] Ishhoazcnt06[address] [place], [place] [address]DrNeo Smyth MCH (RBC) [Entitic mass] 28.9 pg Normal 26.7-34.0 [facility] Comment on above: Performed By: #### C BC ####[facility] Cyed[address]qzmry[address] [place], [place] [address]Dr. Tadeo Smyth MCHC (RBC) [Mass/Vol] 32.4 g/dL Normal 29.9-35.2 [facility] Comment on above: Performed By: #### C BC ####[facility] [address]awv[address] [place] [phone]. Tadeo Haja MCV (RBC) [Entitic vol] 89.2 fL Normal 81.0-99.0 [facility] Comment on above: Performed By: #### C BC ####[facility] Kxiubxkgvd[address] [place], [place] [address]DrNeo Smyth MONO # 0.5 103/ul Normal 0.3-0.8 [facility] Comment on above: Performed By: #### C BC ####[facility] Vovpijhrsi[address] [place], [place] [address]Dr. Tadeo Smyth Monocytes/100 WBC (Bld) 6.7 % Normal 1.7-12.0 [facility] Comment on above: Performed By: #### C BC ####[facility] Zjjsqpupqx[address] [place], [place] [address]Dr. Tadeo Smyth NEUT # 4.5 103/ul Normal 1.4-6.5 [facility] Comment on above: Performed By: #### C BC ####[facility] Cjmnxyhtxs[address] [place], [place] [address]Dr. Tadeo Smyth Neutrophils/100 WBC (Bld) 63.2 % Normal 43.0-75.0 [facility] Comment on above: Performed By: #### C BC ####[facility] [address]vrayqrmt8[address] [place], [place] [address]Dr. Tadeo Smyth Platelet mean volume (Bld) [Entitic vol] 9.0 fL Critically low 9.5-13.5 [facility] Comment on above: Performed By: #### C BC ####[facility] [address]qtxmtwgfc[address] [place], [place] [address]Dr. Tadeo Smyth PLT 382 103/ul Normal 150-450 [facility] Comment on above: Performed By: #### C BC ####[facility] [address] [place], [place] [address]Dr. Tadeo Smyth RBC 4.15 106/ul Critically low 4.20-5.40 [facility] Comment on above: Performed By: #### C BC ####[facility] Jndfxknzsp[address] [place], [place] [address]Dr. Tadeo Smyth WBC 7.1 103/ul Normal 4.0-11.0 [facility] Comment on above: Performed By: #### C BC ####[facility] Hfhaemhdid[address] [place], [place] [address]Dr. Tadeo Smyth CT ABD/PELV W CONon 08-08-[address] ABD/PELV W CON Normal [facility] ER URINE PROFILEon 2 Bilirubin Ql (U) Negative Normal NEGATIVE [facility] Comment on above: Performed By: #### SANDRO MERCHANTRO ####[facility] Fbzlvralwn[address] [place], [place] [address]Dr. Tadeo Smyth Clarity (U) CLEAR Normal CLEAR [facility] Comment on above: Performed By: #### KAROL MERCHANT ####[facility] [address]slgewir[address] [place], [place] [address]Dr. Tadeo Smyth Color (U) YELLOW Normal YELLOW [facility] Comment on above: Performed By: #### KAROL MERCHANT ####[facility] [address]tztxxixuy[address] [place], [place] [address]Dr. Tadeo Smyth ERUAHD A micrscopic examina tion will be performed if indicated. Normal [facility] Comment on above: Performed By: #### KAROL MERCHANT ####[facility] Hhieyrpbhn[address] [place], [place] [address]Dr. Tadeo Smyth Glucose Ql (U) Negative Normal NEGATIVE [facility] Comment on above: Performed By: #### KAROL MERCHANT ####[facility] Twxispekmp[address] [place], [place] [address]Dr. Tadeo Smyth Hemoglobin Ql (U) TRACE-LYSED Abnormal NEGATIVE [facility] Comment on above: Performed By: #### SANDRO MERCHANTRO ####[facility] R[address]rwjti[address] [place] [address]Dr. Tadeo Smyth Ketones Ql (U) TRACE Abnormal NEGATIVE [facility] Comment on above: Performed By: #### KAROL MERCHANT ####[facility] Rjiyxufizg[address] [place], [place] [address]Dr. Tadeo Smyth LEUKOCYTES Negative Normal NEGATIVE [facility] Comment on above: Performed By: #### KAROL MERCHANT ####[facility] Dbsdarahcx[address] [place], [place] [address]Dr. Tadeo Smyth Nitrite Ql (U) Negative Normal NEGATIVE [facility] Comment on above: Performed By: #### KAROL MERCHANT ####[facility] Crgiipplcq[address] [place], [place] [address]Dr. Tadeo Smyth pH (U) 6.0 [pH] Normal 5-9 [facility] Comment on above: Performed By: #### KAROL MERCHANT ####[facility] R[address]gkqbcex[address] [place], [place] [address]Dr. Tadeo Smyth SPEC GRAVITY >=1.030 Abnormal 1.005-<=1.0 25 [facility] Comment on above: Performed By: #### KAROL MERCHANT ####[facility] [address]nuvwk[address] [place], [place] [address]Dr. Tadeo Smyth UA PROTEIN TRACE Normal NEGATIVE/ TRACE [facility] Comment on above: Performed By: #### KAROL MERCHANT ####[facility] Xqjdzxjkfw[address] [place], [place] [address]Dr. Tadeo Smyth UR MICRO IND INDICATED Normal [facility] Comment on above: Performed By: #### KAROL MERCHANT ####[facility] Oitzverqch[address] [place], [place] [address]Dr. Tadeo Smyth Urobilinogen Qn (U) 0.2 {Benito'U}/dL Normal 0.2 - 1. 0 [facility] Comment on above: Performed By: #### KAROL MERCHANT ####[facility] Tyj[address]jdzvvt[address] [place], [place] [address]Dr. Tadeo Smyth LACTATE/LACTIC ACIDon 12-04- 2022 Lactate [Moles/Vol] 1.3 mmol/L Normal 0.4-1.9 [facility] Comment on above: Performed By: #### L ACT ####[facility] [address]hgziutu[address] [place] [address]Dr. Tadeo Smyth LIPASEon 08-08-2022 Lipase [Catalytic activity/Vol] 120.0 U/L Normal 73.0-393.0 [facility] Comment on above: Performed By: #### C MP, VIJI, LIPA, CMADM ####[facility] L[address]ywjruyu[address] [place] [address]Dr. Tadeo Smyth PROF 14(COMP METB)on 022 Albumin [Mass/Vol] 3.8 g/dL Normal 3.4-5.0 [facility] Comment on above: Performed By: #### C MP, VIJI, LIPA, CMADM ####[facility] Vhuwoze[address]ob[address] [place], [place] [address]Dr. Tadeo Smyth Albumin/Globulin [Mass ratio] 1.1 {ratio} Normal [facility] Comment on above: Performed By: #### C MP, VIJI, LIPA, CMADM ####[facility] Iaarmxsulg[address] [place], [place] [address]Dr. Tadeo Smyth ALP [Catalytic activity/Vol] 145 U/L Critically high 46-116 [facility] Comment on above: Performed By: #### C MP, VIJI, LIPA, CMADM ####[facility] Nifnghhwzv[address] [place] [address]Dr. Tadeo Smyth ALT [Catalytic activity/Vol] 30 U/L Normal 14-59 [facility] Comment on above: Performed By: #### C MP, VIJI, LIPA, CMADM ####[facility] Yuqzcafkjc4[address] [place] [address]Dr. Tadeo Smyth Anion gap [Moles/Vol] 11.5 mmol/L Normal [facility] Comment on above: Performed By: #### C MP, VIJI, LIPA, CMADM ####[facility] Wfjpjjupro4[address] [place] [address]Dr. Tadeo Smyth AST [Catalytic activity/Vol] 17 U/L Normal 15-37 [facility] Comment on above: Performed By: #### C MP, VIJI, LIPA, CMADM ####[facility] Ilcwjkearv39[address] [place] [address]Dr. Tadeo Smyth Bilirubin [Mass/Vol] 0.1 mg/dL Critically low 0.2-1.0 [facility] Comment on above: Performed By: #### C MP, VIJI, LIPA, CMADM ####[facility] [address]ims[address] [place] [address]Dr. Tadeo Smyth Calcium [Mass/Vol] 8.9 mg/dL Normal 8.5-10.1 [facility] Comment on above: Performed By: #### C MP, VIJI, LIPA, CMADM ####[facility] Zubssfmgnb18[address] [place] [address]Dr. Tadeo Smyth Chloride [Moles/Vol] 104 mmol/L Normal 98-107 [facility] Comment on above: Performed By: #### C MP, VIJI, LIPA, CMADM ####[facility] Xkjwontbrb14[address] [place] [address]Dr. Tadeo Smyth CO2 [Moles/Vol] 27.2 mmol/L Normal 21.0-32.0 [facility] Comment on above: Performed By: #### C MP, VIJI, LIPA, CMADM ####[facility] Yixjpxzkxm68[address] [place] [address]Dr. Tadeo Smyth Creatinine [Mass/Vol] 0.90 mg/dL Normal 0.55-1.02 [facility] Comment on above: Performed By: #### C MP, VIJI, LIPA, CMADM ####[facility] [address]apgmgq[address] [place], [place] [address]Dr. Tadeo Smyth EGFR-AF HAITIAN >60 Normal >=60 [facility] Comment on above: Performed By: #### C MP, VIJI, LIPA, CMADM ####[facility] H[address]rw[address]wmj[address] [place], [place] [address]Dr. Yilan Smyth EGFR-NON AF HAITIAN >60 Normal >=60 [facility] Comment on above: Performed By: #### C MP, VIJI, LIPA, CMADM ####[facility] Dsbtweugui[address] [place] [address]Dr. Tadeo Smyth Globulin (S) [Mass/Vol] 3.5 g/dL Normal [facility] Comment on above: Performed By: #### C MP, VJII, LIPA, CMADM ####[facility] Eunfxjwfow[address] [place] [address]Dr. Tadeo Smyth Glucose [Mass/Vol] 98 mg/dL Normal 74-106 [facility] Comment on above: Performed By: #### C MP, VIJI, LIPA, CMADM ####[facility] Wqpduvcaip[address] [place] [address]Dr. Tadeo Smyth Potassium [Moles/Vol] 3.7 mmol/L Normal 3.5-5.1 [facility] Comment on above: Performed By: #### C MP, VIJI, LIPA, CMADM ####[facility] Svrfkcssmy[address] [place] [address]Dr. Tadeo Smyth Protein [Mass/Vol] 7.3 g/dL Normal 6.4-8.2 [facility] Comment on above: Performed By: #### C MP, VIJI, LIPA, CMADM ####[facility] Jboebtygxc[address] [place] [address]Dr. Tadeo Smyth Sodium [Moles/Vol] 139 mmol/L Normal 136-145 [facility] Comment on above: Performed By: #### C MP, VIJI, LIPA, CMADM ####[facility] Yalieulckm[address] [place] [address]Dr. Tadeo Smyth Urea nitrogen [Mass/Vol] 25.0 mg/dL Critically high 7.0-18.0 [facility] Comment on above: Performed By: #### C MP, VIJI, LIPA, CMADM ####[facility] T[address]wrkqbtc67[address] [place] [address]Dr. Tadeo Smyth Urea nitrogen/Creatinine [Mass ratio] 27.8 mg/mg Normal [facility] Comment on above: Performed By: #### C MP, VIJI, LIPA, CMADM ####[facility] Vwjoangkgn[address] [place] [address]Dr. Tadeo Smyth URINE MICROSCOPIC ONLYon BACTERIA NONE SEEN Normal NONE SEEN [facility] Comment on above: Performed By: #### Matthew FRANCISCO, UMICRO ####[facility] E[address]ecz[address]vv[address] [place] [address]Dr. Tadeo Smyth Bacteria identified Cx Nom (U) NOT INDICATED Normal [facility] Comment on above: Performed By: #### Matthew FRANCISCO, UMICRO ####[facility] Cmplsbetyb[address] [place] [address]Dr. Tadeo Smyth CAST NONE SEEN Normal NONE SEEN [facility] Comment on above: Performed By: #### Matthew FRANCISCO UMICRO ####[facility] [address]rop[address] [place], [place] [address]Dr. Tadeo Smyth Crystals LM Nom (Urine sed) NONE SEEN Normal NONE SEEN [facility] Comment on above: Performed By: #### Matthew FRANCISCO UMICRO ####[facility] Z[address]wxhkpykn[address] [place], [place] [address]Dr. Tadeo Smyth Epithelial cells LM Ql (Urine sed) FEW Abnormal NONE SEEN /RARE [facility] Comment on above: Performed By: #### Matthew FRANCISCO UMICRO ####[facility] Cntjpqdwnt[address] [place], [place] [address]Dr. Tadeo Smyth MUCOUS NONE SEEN Normal NONE SEEN [facility] Comment on above: Performed By: #### Matthew FRANCISCO, UMICRO ####[facility] Gqjgcwkaga[address] [place] [address]Dr. Tadeo Smyth RBC 2-5 Abnormal 0-2 [facility] Comment on above: Performed By: #### Matthew FRANCISCO UMICRO ####[facility] B[address]aiwnwqu[address] [place] [address]Dr. Tadeo Smyth WBC NONE SEEN Normal NONE SEEN [facility] Comment on above: Performed By: #### Matthew FRANCISCO UMICRO ####[facility] Rnbpgkkjkz42[address] [place] [address]Dr. Tadeo Smyth AMYLASEon 07-21-2022 Amylase [Catalytic activity/Vol] 49 U/L Normal 25-115 [facility] Comment on above: Performed By: #### L VIJI HALL, CMP ####[facility] [address]xahcdq[address] [place], [place] [address]Dr. Tadeo Smyth CBC AUTO DIFFon 07-21-2022 BASO # 0.0 103/ul Normal 0.0-0.1 [facility] Comment on above: Performed By: #### C BC ####[facility] [address]vktbazu[address] [place], [place] [address]Dr. Tadeo Haja Basophils/100 WBC (Bld) 0.6 % Normal 0.2-2.0 [facility] Comment on above: Performed By: #### C BC ####[facility] [address]ps[address]tyl[address] [place], [place] [address]Dr. Tadeo Smyth EO # 0.2 103/ul Normal 0.0-0.7 [facility] Comment on above: Performed By: #### C BC ####[facility] X[address]spzjuph[address] [place], [place] [address]Dr. Tadeo Smyth Eosinophils/100 WBC (Bld) 3.1 % Normal 0.9-7.0 [facility] Comment on above: Performed By: #### C BC ####[facility] [address]wrixwqx[address] [place], [place] [address]Dr. Tadeo Smyth Erythrocyte distribution width (RBC) [Ratio] 13.2 % Normal 11.0-15.0 [facility] Comment on above: Performed By: #### C BC ####[facility] Wthtshdyxl[address] [place], [place] [address]Dr. Tadeo Smyth Hematocrit (Bld) [Volume fraction] 35.7 % Critically low 36.0-48.0 [facility] Comment on above: Performed By: #### C BC ####[facility] Offqzuidvs[address] [place], [place] [address]Dr. Tadeo Haja Hemoglobin (Bld) [Mass/Vol] 11.6 g/dL Critically low 12.0-16.0 [facility] Comment on above: Performed By: #### C BC ####[facility] [address]mq[address] [place] [address]Dr. Tadeo Smyth IG # 0.01 10e3/ul Normal 0.00-0.03 [facility] Comment on above: Performed By: #### C BC ####[facility] Hspxnsgupc7398 [place] [address]Dr. Tadeo Smyth IG % 0.2 % Normal 0.0-0.5 [facility] Comment on above: Performed By: #### C BC ####[facility] Zjcjrrrwyb[address] [place], [place] [address]Dr. Tadeo Smyth LYMPH # 1.9 103/ul Normal 1.2-3.8 [facility] Comment on above: Performed By: #### C BC ####[facility] Zhelmtnjma[address] [place], [place] [address]DrNeo Smyth Lymphocytes/100 WBC (Bld) 34.8 % Normal 20.5-60.0 [facility] Comment on above: Performed By: #### C BC ####[facility] Xlqolzlsnh77[address] [place] [address]DrNeo Smyth MANUAL DIFF REQ NO Normal [facility] Comment on above: Performed By: #### C BC ####[facility] Mzzneowfhq94[address] [place] [address]Dr. Tadeo Smyth MCH (RBC) [Entitic mass] 29.1 pg Normal 26.7-34.0 [facility] Comment on above: Performed By: #### C BC ####[facility] Xfvmrzayaw2290 [place] [address]Dr. Tadeo Smyth MCHC (RBC) [Mass/Vol] 32.5 g/dL Normal 29.9-35.2 [facility] Comment on above: Performed By: #### C BC ####[facility] Hgxgtganpv6253 [place] [address]Dr. Tadeo Smyth MCV (RBC) [Entitic vol] 89.7 fL Normal 81.0-99.0 [facility] Comment on above: Performed By: #### C BC ####[facility] Iwahpcahnh78[address] [place] [phone]. Tadeo Smyth MONO # 0.3 103/ul Normal 0.3-0.8 [facility] Comment on above: Performed By: #### C BC ####[facility] Odnhkvqcdk2595 [place] [phone]. Tadeo Smyth Monocytes/100 WBC (Bld) 6.1 % Normal 1.7-12.0 [facility] Comment on above: Performed By: #### C BC ####[facility] Zsfxmrmmgu4184 [place] [phone]. Tadeo Smyth NEUT # 3.0 103/ul Normal 1.4-6.5 [facility] Comment on above: Performed By: #### C BC ####[facility] Rvlbazhkph1250 [place] [address]Dr. Tadeo Smyth Neutrophils/100 WBC (Bld) 55.2 % Normal 43.0-75.0 [facility] Comment on above: Performed By: #### C BC ####[facility] Iaaxtldqfm9207 [place] [phone]. Tadeo Smyth Platelet mean volume (Bld) [Entitic vol] 9.0 fL Critically low 9.5-13.5 [facility] Comment on above: Performed By: #### C BC ####[facility] Pylktacvwu8351 [place] [address]Dr. Tadeo Smyth PLT 358 103/ul Normal 150-450 [facility] Comment on above: Performed By: #### C BC ####[facility] Yejpzvfbmh0250 [place] [phone]. Tadeo Smyth RBC 3.98 106/ul Critically low 4.20-5.40 [facility] Comment on above: Performed By: #### C BC ####[facility] Sdgcifgbbk1141 [place] [phone]. Tadeo Smyth WBC 5.4 103/ul Normal 4.0-11.0 [facility] Comment on above: Performed By: #### C BC ####[facility] Nqovixyjhm7653 [place] [address]Dr. Tadeo Smyth LIPASEon 07-21-2022 Lipase [Catalytic activity/Vol] 54.0 U/L Critically low 73.0-393.0 [facility] Comment on above: Performed By: #### L VIJI HALL, CMP ####[facility] Iwtzqnyarr8838 [place] [address]Dr. Tadeo Smyth PROF 14(COMP METB)on 022 Albumin [Mass/Vol] 3.5 g/dL Normal 3.4-5.0 [facility] Comment on above: Performed By: #### L VIJI HALL, CMP ####[facility] Devhgfvoiu[address] [place], [place] [address]Dr. Tadeo Smyth Albumin/Globulin [Mass ratio] 0.9 {ratio} Normal [facility] Comment on above: Performed By: #### L VIJI HALL, CMP ####[facility] Buujmzrmml[address] [place], [place] [address]Dr. Tadeo Smyth ALP [Catalytic activity/Vol] 127 U/L Critically high 46-116 [facility] Comment on above: Performed By: #### L VIJI HALL, CMP ####[facility] Lrsahezuoo10[address] [place], [place] [address]Dr. Tadeo Smyth ALT [Catalytic activity/Vol] 16 U/L Normal 14-59 [facility] Comment on above: Performed By: #### L VIJI HALL, CMP ####[facility] Clnbxzozmv1130 [place] [address]Dr. Tadeo Smyth Anion gap [Moles/Vol] 10.6 mmol/L Normal [facility] Comment on above: Performed By: #### L IVJI HALL, CMP ####[facility] Hghkvazrqg198[address] [place], [place] [address]Dr. Tadeo Smyth AST [Catalytic activity/Vol] 16 U/L Normal 15-37 [facility] Comment on above: Performed By: #### L VIJI HALL, CMP ####[facility] Ekejtfcmks924[address] [place], [place] [address]Dr. Tadeo Smyth Bilirubin [Mass/Vol] 0.3 mg/dL Normal 0.2-1.0 [facility] Comment on above: Performed By: #### L VIJI HALL, CMP ####[facility] Zdxjsmttjt0081 [place] [address]Dr. Tadeo Smyth Calcium [Mass/Vol] 9.1 mg/dL Normal 8.5-10.1 [facility] Comment on above: Performed By: #### L VIJI HALL, CMP ####[facility] Gdnokictxc264[address] [place], [place] [address]Dr. Tadeo Smyth Chloride [Moles/Vol] 104 mmol/L Normal 98-107 [facility] Comment on above: Performed By: #### L VIJI HALL, CMP ####[facility] Iedjsgpikd5624[address] [place], [place] [address]Dr. Tadeo Smyth CO2 [Moles/Vol] 28.0 mmol/L Normal 21.0-32.0 [facility] Comment on above: Performed By: #### L VIJI HALL, CMP ####[facility] Eeghuehqzd[address] [place], [place] [address]Dr. Tadeo Smyth Creatinine [Mass/Vol] 0.96 mg/dL Normal 0.55-1.02 [facility] Comment on above: Performed By: #### L VIJI HALL, CMP ####[facility] Ekfjbanzet5[address] [place], [place] [address]Dr. Tadeo Smyth EGFR-AF HAITIAN >60 Normal >=60 [facility] Comment on above: Performed By: #### L VIJI HALL, CMP ####[facility] Rljbzhjbie9751 [place] [address]Dr. Tadeo Smyth EGFR-NON AF HAITIAN >60 Normal >=60 [facility] Comment on above: Performed By: #### L VIJI HALL, CMP ####[facility] Bgtbkjorwu0424[address] [place], [place] [address]Dr. Tadeo Smyth Globulin (S) [Mass/Vol] 3.8 g/dL Normal [facility] Comment on above: Performed By: #### L VIJI HALL, CMP ####[facility] Eraxjmbodc3460 [place] [address]Dr. Tadeo Smyth Glucose [Mass/Vol] 93 mg/dL Normal 74-106 [facility] Comment on above: Performed By: #### L VIJI HALL, CMP ####[facility] Tuvcsjacne[address] [place] [address]Dr. Tadeo Smyth Potassium [Moles/Vol] 3.6 mmol/L Normal 3.5-5.1 [facility] Comment on above: Performed By: #### L VIJI HALL, CMP ####[facility] Rbqmlzuzee2248 [place] [address]Dr. Tadeo Smyth Protein [Mass/Vol] 7.3 g/dL Normal 6.4-8.2 [facility] Comment on above: Performed By: #### L VIJI HALL, CMP ####[facility] Bzglzifmcd[address] [place], [place] [address]Dr. Tadeo Smyth Sodium [Moles/Vol] 139 mmol/L Normal 136-145 [facility] Comment on above: Performed By: #### L VIJI HALL, CMP ####[facility] Hzxommbeya558[address] [place], [place] [address]Dr. Tadeo Smyth Urea nitrogen [Mass/Vol] 16.0 mg/dL Normal 7.0-18.0 [facility] Comment on above: Performed By: #### L VIJI HALL, CMP ####[facility] Nddwmmjxrs[address] [place], [place] [address]Dr. Tadeo Haja Urea nitrogen/Creatinine [Mass ratio] 16.7 mg/mg Normal [facility] Comment on above: Performed By: #### L VIJI HALL, CMP ####[facility] Wolsefxtuy[address] [place], [place] [address]Dr. Tadeo Smyth XR ABD FLAT UP_PA Kasey 07-21 XR ABD FLAT UP_PA CH Normal [facility] CULTURE URINEon 07-10-2022 CULTURE URINE Normal [facility] Comment on above: Performed By: #### U RCX ####[facility] Fqbbvzixhu42[address] [place], [place] [address]Dr. Tadeo Smyth INSULINon 07-09-2022 Insulin 15.9 uIU/mL Normal 2.6-24.9 [facility] Comment on above: Performed By: #### I NSULIN ####[facility] Fzvxipduzu5[address] [place] [address]Dr. Tadeo Smyth CBC AUTO DIFFon 07-08-2022 BASO # 0.0 103/ul Normal 0.0-0.1 [facility] Comment on above: Performed By: #### C BC ####[facility] Audtjbaadj326[address] [place], [place] [address]Dr. Tadeo Smyth Basophils/100 WBC (Bld) 0.6 % Normal 0.2-2.0 [facility] Comment on above: Performed By: #### C BC ####[facility] Glaetpwtjs[address] [place], [place] [address]Dr. Tadeo Smyth EO # 0.2 103/ul Normal 0.0-0.7 [facility] Comment on above: Performed By: #### C BC ####[facility] Uggkrpqrsp0125[address] [place], [place] [address]Dr. Tadeo Smyth Eosinophils/100 WBC (Bld) 3.4 % Normal 0.9-7.0 [facility] Comment on above: Performed By: #### C BC ####[facility] Bgzncfocve[address] [place], [place] [address]Dr. Tadeo Smyth Erythrocyte distribution width (RBC) [Ratio] 13.1 % Normal 11.0-15.0 [facility] Comment on above: Performed By: #### C BC ####[facility] Wqjnuuzgec[address] [place], [place] [address]Dr. Tadeo Smyth Hematocrit (Bld) [Volume fraction] 42.4 % Normal 36.0-48.0 [facility] Comment on above: Performed By: #### C BC ####[facility] Blblacspcg075[address] [place], [place] [address]Dr. Tadeo Smyth Hemoglobin (Bld) [Mass/Vol] 13.7 g/dL Normal 12.0-16.0 [facility] Comment on above: Performed By: #### C BC ####[facility] Lqaebofxcm2434 [place] [phone]. Tadeo Smyth IG # 0.01 10e3/ul Normal 0.00-0.03 [facility] Comment on above: Performed By: #### C BC ####[facility] Fxyhxpvwkj5075 [place] [phone]. Tadeo Smyth IG % 0.2 % Normal 0.0-0.5 [facility] Comment on above: Performed By: #### C BC ####[facility] Rqemciglrc7811 [place] [address]Dr. Tadeo Smyth LYMPH # 2.1 103/ul Normal 1.2-3.8 [facility] Comment on above: Performed By: #### C BC ####[facility] Vwmpgnhdcp8740 [place] [address]Dr. Margotnicole Smyth Lymphocytes/100 WBC (Bld) 41.2 % Normal 20.5-60.0 [facility] Comment on above: Performed By: #### C BC ####[facility] Nplpqewqnl7281 [place] [address]Dr. Tadeo Smyth MANUAL DIFF REQ NO Normal [facility] Comment on above: Performed By: #### C BC ####[facility] Kqxvstreil1140 [place] [address]Dr. Tdaeo Smyth MCH (RBC) [Entitic mass] 28.8 pg Normal 26.7-34.0 [facility] Comment on above: Performed By: #### C BC ####[facility] Pknbosujvz7257 [place] [address]Dr. Tadeo Smyth MCHC (RBC) [Mass/Vol] 32.3 g/dL Normal 29.9-35.2 [facility] Comment on above: Performed By: #### C BC ####[facility] Yrlomxalby4874 [place] [address]Dr. Tadeo Smyth MCV (RBC) [Entitic vol] 89.3 fL Normal 81.0-99.0 [facility] Comment on above: Performed By: #### C BC ####[facility] Tbpexiwlvk0948 [place] [phone]. Tadeo Smyth MONO # 0.4 103/ul Normal 0.3-0.8 [facility] Comment on above: Performed By: #### C BC ####[facility] Xelivcvdnp8799 [place] [phone]. Tadeo Smyth Monocytes/100 WBC (Bld) 8.1 % Normal 1.7-12.0 [facility] Comment on above: Performed By: #### C BC ####[facility] Kqkstmqgtq3546 [place] [phone]. Tadeo Smyth NEUT # 2.4 103/ul Normal 1.4-6.5 [facility] Comment on above: Performed By: #### C BC ####[facility] Mtbasehqme0823 [place] [address]Dr. Tadeo Smyth Neutrophils/100 WBC (Bld) 46.5 % Normal 43.0-75.0 [facility] Comment on above: Performed By: #### C BC ####[facility] Bzzubwqpgn5686 [place] [phone]. Tadeo Smyth Platelet mean volume (Bld) [Entitic vol] 9.3 fL Critically low 9.5-13.5 [facility] Comment on above: Performed By: #### C BC ####[facility] Qzezfwisjg2844 [place] [phone]. Tadeo Smyth PLT 443 103/ul Normal 150-450 [facility] Comment on above: Performed By: #### C BC ####[facility] Drlnnwiexu0062 [place] [phone]. Tadeo Smyth RBC 4.75 106/ul Normal 4.20-5.40 [facility] Comment on above: Performed By: #### C BC ####[facility] Hkuvexrjpy6312 [place] [phone]. Tadeo Smyth WBC 5.1 103/ul Normal 4.0-11.0 [facility] Comment on above: Performed By: #### C BC ####[facility] [address]wj[address] [place], [place] [address]Dr. Tadeo Smyth FREE THYROXINE INDEX T7on FTI 2.91 Normal 1.30-4.50 [facility] Comment on above: Performed By: #### T 7, LIPID, TSH, CMP ####[facility] Odrkmilrzi[address] [place] [phone]. Tadeo Smyth T3U 31.0 % Normal 30.0-39.0 [facility] Comment on above: Performed By: #### T 7, LIPID, TSH, CMP ####[facility] Ftgkuytpnn8481 [place] [phone]. Tadeo Smyth T4 [Mass/Vol] 9.40 ug/dL Normal 4.80-13.90 [facility] Comment on above: Performed By: #### T 7, LIPID, TSH, CMP ####[facility] Zsboymupmh5456 [place] [address]Dr. Tadeo Smyth GLYCOHEMOGLOBIN A1Con 2021 ADA RECOMMENDATION SEE BELOW Normal [facility] Comment on above: Result Comment: ADA RECOMMENDED LIMIT 4.0 - 6.0 ADA THERAPEUTIC TARGET < 7.0 ACTION SUGGESTED > 7.0 Performed By: #### A 1C ####[facility] Pjsxwtfncv3091 [place] [address]Dr. Tdaeo Smyth Glucose [Mass/Vol] 120 mg/dL Normal [facility] Comment on above: Performed By: #### A 1C ####[facility] Ddsgxwluuq2597 [place] [address]Dr. Tadeo Smyth HbA1c (Bld) [Mass fraction] 5.8 % Normal 4.5-6.2 [facility] Comment on above: Performed By: #### A 1C ####[facility] Fnkkhymtts8741 [place] [phone]. Tadeo Haja IRONon 07-08-2022 Iron [Mass/Vol] 59.0 ug/dL Normal 50.0-170.0 [facility] Comment on above: Performed By: #### I KEEGAN ####[facility] [address]hyfubaqv[address] [place], [place] [address]Dr. Tadeo Smyth LIPID PROFILEon 07-08-2022 CHOL-HDL RATIO NORM SEE BELOW Normal [facility] Comment on above: Result Comment: 3.3 - 4.4 LOW RISK 4.4 - 7.1 AVERAGE RISK 7.1 - 11.0 MODERATE RISK >11.0 HIGH RISK Performed By: #### T 7, LIPID, TSH, CMP ####[facility] Gxmvsyccae9422 [place] [phone]. Tadeo Smyth Cholesterol [Mass/Vol] 227 mg/dL Critically high <=200 [facility] Comment on above: Performed By: #### T 7, LIPID, TSH, CMP ####[facility] Tnqsnmdyfw8096 [place] [address]Dr. Tadeo Smyht Cholesterol in HDL [Mass/Vol] 67 mg/dL Critically high 40-60 [facility] Comment on above: Performed By: #### T 7, LIPID, TSH, CMP ####[facility] Ywypzlopss[address] [place], [place] [address]Dr. Tadeo Smyth Cholesterol in LDL [Mass/Vol] 139.0 mg/dL Normal [facility] Comment on above: Performed By: #### T 7, LIPID, TSH, CMP ####[facility] [address]hoohxp[address] [place], [place] [address]Dr. Tadeo Smyth Cholesterol.total/Cho lesterol in HDL [Mass ratio] 3.4 {ratio} Normal [facility] Comment on above: Performed By: #### T 7, LIPID, TSH, CMP ####[facility] Sgkzfzxklr5890 [place] [phone]. Tadeo Smyth HDL NORMAL > or = 60 mg/dl - LO W CARDIOVASCULAR RISK <40 mg/dl - HIGH CARDIOVASCULAR RISK Normal [facility] Comment on above: Performed By: #### T 7, LIPID, TSH, CMP ####[facility] Jwvcknrebl[address] [place], [place] [address]Dr. Tadeo Smyth LDL CALC NORMAL SEE BELOW Normal [facility] Comment on above: Result Comment: <100 mg/dl OPTIMAL 100 - 129 mg/dl NEAR OR ABOVE OPTIMAL 130 - 159 mg/dl BORDERLINE HIGH 160 - 189 mg/dl HIGH >190 mg/dl VERY HIGH Performed By: #### T 7, LIPID, TSH, CMP ####[facility] Khjvxxxovy5972 [place] [address]Dr. Tadeo Smyth Triglyceride [Mass/Vol] 105 mg/dL Normal <=150 [facility] Comment on above: Performed By: #### T 7, LIPID, TSH, CMP ####[facility] Ttsgghheqx2616 [place] [address]Dr. Tadeo Smyth VLDL CALC 21.0 mg/dL Normal [facility] Comment on above: Performed By: #### T 7, LIPID, TSH, CMP ####[facility] Bdrjrtconk[address] [place] [address]Dr. Tadeo Smyth OCC BLD IMMUNO SCREENon OCCULT BLOOD Negative Normal NEGATIVE [facility] Comment on above: Performed By: #### O BSCRN ####[facility] Ktqgdnvhtb6241 [place] [address]Dr. Tadeo Smyth PROF 14(COMP METB)on 022 Albumin [Mass/Vol] 3.7 g/dL Normal 3.4-5.0 [facility] Comment on above: Performed By: #### T 7, LIPID, TSH, CMP ####[facility] Vllqgkxank6022 [place] [address]Dr. Tadeo Smyth Albumin/Globulin [Mass ratio] 0.8 {ratio} Normal [facility] Comment on above: Performed By: #### T 7, LIPID, TSH, CMP ####[facility] Xujtoyfqwl6559 [place] [address]Dr. Tadeo Smyth ALP [Catalytic activity/Vol] 141 U/L Critically high 46-116 [facility] Comment on above: Performed By: #### T 7, LIPID, TSH, CMP ####[facility] Dwgjjhblzi1360 [place] [address]Dr. Tadeo Smyth ALT [Catalytic activity/Vol] 23 U/L Normal 14-59 [facility] Comment on above: Performed By: #### T 7, LIPID, TSH, CMP ####[facility] Ifjdjxhlfl4238 [place] [address]Dr. Tadeo Smyth Anion gap [Moles/Vol] 9.8 mmol/L Normal [facility] Comment on above: Performed By: #### T 7, LIPID, TSH, CMP ####[facility] Keullzyxqc365[address] [place], [place] [address]Dr. Tadeo Smyth AST [Catalytic activity/Vol] 13 U/L Critically low 15-37 [facility] Comment on above: Performed By: #### T 7, LIPID, TSH, CMP ####[facility] Knqlevqvsk[address] [place], [place] [address]Dr. Tadeo Smyth Bilirubin [Mass/Vol] 0.4 mg/dL Normal 0.2-1.0 [facility] Comment on above: Performed By: #### T 7, LIPID, TSH, CMP ####[facility] Ilraqqgncl[address] [place], [place] [address]Dr. Tadeo Smyth Calcium [Mass/Vol] 10.2 mg/dL Critically high 8.5-10.1 [facility] Comment on above: Performed By: #### T 7, LIPID, TSH, CMP ####[facility] Tpcqxgovxs[address] [place], [place] [address]Dr. Tadeo Smyth Chloride [Moles/Vol] 101 mmol/L Normal 98-107 [facility] Comment on above: Performed By: #### T 7, LIPID, TSH, CMP ####[facility] Cvuisdivsg[address] [place], [place] [address]Dr. Tadeo Smyth CO2 [Moles/Vol] 32.8 mmol/L Critically high 21.0-32.0 [facility] Comment on above: Performed By: #### T 7, LIPID, TSH, CMP ####[facility] Fuqbfpuula12[address] [place], [place] [address]Dr. Tadeo Smyth Creatinine [Mass/Vol] 0.92 mg/dL Normal 0.55-1.02 [facility] Comment on above: Performed By: #### T 7, LIPID, TSH, CMP ####[facility] Zazfzlaqoq[address] [place], [place] [address]Dr. Tadeo Smyth EGFR-AF HAITIAN >60 Normal >=60 [facility] Comment on above: Performed By: #### T 7, LIPID, TSH, CMP ####[facility] Skpfqvxdar5712 [place] [address]Dr. Tadeo Smyth EGFR-NON AF HAITIAN >60 Normal >=60 [facility] Comment on above: Performed By: #### T 7, LIPID, TSH, CMP ####[facility] Jgazsjdnkp2765 [place] [address]Dr. Tadeo Smyth Globulin (S) [Mass/Vol] 4.8 g/dL Normal [facility] Comment on above: Performed By: #### T 7, LIPID, TSH, CMP ####[facility] Etrmxzttde6878 [place] [address]Dr. Tadeo Smyth Glucose [Mass/Vol] 114 mg/dL Critically high 74-106 [facility] Comment on above: Performed By: #### T 7, LIPID, TSH, CMP ####[facility] Yyiicpsmez0582 [place] [address]Dr. Tadeo Smyth Potassium [Moles/Vol] 3.6 mmol/L Normal 3.5-5.1 [facility] Comment on above: Performed By: #### T 7, LIPID, TSH, CMP ####[facility] [address]tzwcqzyvr[address] [place], [place] [address]Dr. Tadeo Smyth Protein [Mass/Vol] 8.5 g/dL Critically high 6.4-8.2 [facility] Comment on above: Performed By: #### T 7, LIPID, TSH, CMP ####[facility] Bxlitswsts0751 [place] [address]Dr. Tadeo Smyth Sodium [Moles/Vol] 140 mmol/L Normal 136-145 [facility] Comment on above: Performed By: #### T 7, LIPID, TSH, CMP ####[facility] Zsuumzpqgp[address] [place], [place] [address]Dr. Tadeo Smyth Urea nitrogen [Mass/Vol] 23.0 mg/dL Critically high 7.0-18.0 [facility] Comment on above: Performed By: #### T 7, LIPID, TSH, CMP ####[facility] Aqqce[address]jan[address] [place], [place] [id number]. Tadeo Smyth Urea nitrogen/Creatinine [Mass ratio] 25.0 mg/mg Normal [facility] Comment on above: Performed By: #### T 7, LIPID, TSH, CMP ####[facility] Idjxsmpcxm8612 [place] [address]Dr. Tadeo Smyth TSHon 07-08-2022 TSH 3.748 uIU/mL Critically high 0.358-3.740 [facility] Comment on above: Performed By: #### T 7, LIPID, TSH, CMP ####[facility] Pxtglqipfu1510 [place] [address]Dr. Tadeo Smyth UA RANDOM W/MICROSCOPICon BACTERIA TRACE Abnormal NONE SEEN [facility] Comment on above: Performed By: #### U AMIC ####[facility] Hboqkonxlv[address] [place], [place] [address]Dr. Tadeo Smyth Bilirubin Ql (U) Negative Normal NEGATIVE [facility] Comment on above: Performed By: #### U AMIC ####[facility] Deatevoqli[address] [place], [place] [address]Dr. Tadeo Smyth CAST NONE SEEN Normal NONE SEEN [facility] Comment on above: Performed By: #### U AMIC ####[facility] [address]qlbdqkw[address] [place], [place] [address]Dr. Tadeo Smyth Clarity (U) CLEAR Normal CLEAR [facility] Comment on above: Performed By: #### U AMIC ####[facility] Geqpnfzcpt[address] [place], [place] [address]Dr. Tadeo Smyth Color (U) YELLOW Normal YELLOW [facility] Comment on above: Performed By: #### U AMIC ####[facility] Ojvxvaousg[address] [place], [place] [address]Dr. Tadeo Smyth Crystals LM Nom (Urine sed) NONE SEEN Normal NONE SEEN [facility] Comment on above: Performed By: #### U AMIC ####[facility] Aftgscofix[address] [place], [place] [address]Dr. Tadeo Smyth Epithelial cells LM Ql (Urine sed) FEW Abnormal NONE SEEN /RARE [facility] Comment on above: Performed By: #### U AMIC ####[facility] Jwvftqmuzq3667 [place] [address]Dr. Margotnicole Haja Glucose Ql (U) Negative Normal NEGATIVE [facility] Comment on above: Performed By: #### U AMIC ####[facility] Zbttzzsrkv1258 [place] [address]Dr. Tadeo Smyth Hemoglobin Ql (U) SMALL Abnormal NEGATIVE [facility] Comment on above: Performed By: #### U AMIC ####[facility] Owqvyzdduy[address] [place], [place] [address]Dr. Tadeo Smyth Ketones Ql (U) TRACE Abnormal NEGATIVE [facility] Comment on above: Performed By: #### U AMIC ####[facility] Hcjezwvydb512[address] [place], [place] [address]Dr. Tadeo Smyth LEUKOCYTES TRACE Abnormal NEGATIVE [facility] Comment on above: Performed By: #### U AMIC ####[facility] Jjhytqjltx[address] [place], [place] [address]Dr. Tadeo Smyth MUCOUS NONE SEEN Normal NONE SEEN [facility] Comment on above: Performed By: #### U AMIC ####[facility] Tkdpnqgmvp474[address] [place], [place] [address]Dr. Tadeo Smyth Nitrite Ql (U) Negative Normal NEGATIVE [facility] Comment on above: Performed By: #### U AMIC ####[facility] Odcnalxhky025[address] [place], [place] [address]Dr. Tadeo Smyth pH (U) 6.5 [pH] Normal 5-9 [facility] Comment on above: Performed By: #### U AMIC ####[facility] Jdtqicbuck8926[address] [place], [place] [address]Dr. Tadeo Smyth RBC 5-10 Abnormal 0-2 [facility] Comment on above: Performed By: #### U AMIC ####[facility] Duwxhdcmfm4935[address] [place], [place] [address]Dr. Tadeo Smyth SPEC GRAVITY 1.020 Normal 1.005-<=1.0 25 [facility] Comment on above: Performed By: #### U AMIC ####[facility] Bqceklgmpp0201 [place], [place] [address]Nk. Tadeo Smyth UA PROTEIN 30 mg/dl Abnormal NEGATIVE/ TRACE [facility] Comment on above: Performed By: #### U AMIC ####[facility] Gotzmzxtpe2705 [place], [place] [address]Tr. Tadeo Smyth Urobilinogen Qn (U) 0.2 {Benito'U}/dL Normal 0.2 - 1. 0 [facility] Comment on above: Performed By: #### U AMIC ####[facility] Dbrxcotsyj3404 [place], [place] [address]Zd. Tadeo Smyth WBC 2-5 Abnormal NONE SEEN [facility] Comment on above: Performed By: #### U AMIC ####[facility] Wdqxtfucsu8670 [place], [place] [address]Xf. Tadeo Smyth Covid-19 PCR (CVDTBH)on 06-07 SARS-CoV-2 (COVID-19) RNA CHEN+probe Ql (Unsp spec) Not detected Normal NOT DETECTED [facility] Comment on above: Result Comment: When [...] for this test is supported by the Master In Chan[employer] of Health and Human Service's declaration that [...] be used). Performed By: #### C VDTBH ####[facility] Xzpuxqsgqx3039 [place], [place] [address]Pk. Tadeo Smyth CULTURE URINEon 06-09-2022 CULTURE URINE Normal [facility] Comment on above: Performed By: #### U RCX ####[facility] Bqlrugoryn430[address] [place], [place] [address]Dr. Tadeo Smyth GI PANEL (PCR)on 06-07-2022 Adenovirus F 40/41 Not detected Normal NOT DETECTED [facility] Comment on above: Performed By: #### G IPANEL ####[facility] Mpwavekxbc7934[address] [place], [place] [address]Dr. Tadeo Smyth Astrovirus Not detected Normal NOT DETECTED [facility] Comment on above: Performed By: #### G IPANEL ####[facility] Xwnqygphsg2125[address] [place], [place] [address]Dr. Tadeo Smyth C. Diff toxin A/B Not detected Normal NOT DETECTED [facility] Comment on above: Performed By: #### G IPANEL ####[facility] Gpdsvxrqac7364[address] [place], [place] [address]Dr. Tadeo Smyth Campylobacter Not detected Normal NOT DETECTED [facility] Comment on above: Performed By: #### G IPANEL ####[facility] Epozpzpywe455[address] [place], [place] [address]Dr. Tadeo Smyth Cryptosporidium Not detected Normal NOT DETECTED [facility] Comment on above: Performed By: #### G IPANEL ####[facility] Oppktyevzl674[address] [place], [place] [address]Dr. Tadeo Smyth Cyclos. Cayetanensis Not detected Normal NOT DETECTED [facility] Comment on above: Performed By: #### G IPANEL ####[facility] Dtemfkgozs412[address] [place], [place] [address]Dr. Tadeo Smyth E. Coli O157 Not Applicable Normal Not Applicable [facility] Comment on above: Performed By: #### G IPANEL ####[facility] Hbxudzttym742[address] [place], [place] [address]Dr. Tadeo Smyth E. histolytica Not detected Normal NOT DETECTED [facility] Comment on above: Performed By: #### G IPANEL ####[facility] Gxwkycrxko4770[address] [place], [place] [address]Dr. Tadeo Smyth EAEC Not detected Normal NOT DETECTED [facility] Comment on above: Performed By: #### G IPANEL ####[facility] Mggqrbbjko8153 [place] [address]Dr. Tadeo Smyth EIEC Not detected Normal NOT DETECTED [facility] Comment on above: Performed By: #### G IPANEL ####[facility] Qwwexqzvjd1008 [place] [address]Dr. Tadeo Smyth EPEC Not detected Normal NOT DETECTED [facility] Comment on above: Performed By: #### G IPANEL ####[facility] Ksbozgfakw735[address] [place], [place] [address]Dr. Tadeo Smyth ETEC Not detected Normal NOT DETECTED [facility] Comment on above: Performed By: #### G IPANEL ####[facility] Casrzkiuwt033[address] [place], [place] [address]Dr. Tadeo Smyth G. Lamblia Not detected Normal NOT DETECTED [facility] Comment on above: Performed By: #### G IPANEL ####[facility] Eyuwlnfyxh199[address] [place], [place] [address]Dr. Tadeo Smyth [facility] CONTROLS PASSED Normal [facility] Comment on above: Performed By: #### G IPANEL ####[facility] Vhpjxxapan318[address] [place], [place] [address]Dr. Tadeo Smyth [facility] HEADER GI PANEL BACTERIA Normal T [facility] Comment on above: Performed By: #### G IPANEL ####[facility] Wkjvxxtklg0599[address] [place], [place] [address]Dr. Tadeo Smyth [facility] DIARRHEAGEN IC E.COLI / SHIGELLA Normal [facility] Comment on above: Performed By: #### G IPANEL ####[facility] Ifjjglcehl4860[address] [place], [place] [address]Dr. Tadeo [facility] HospitalNLHD INFO SEE BELOW Normal [facility] Comment on above: Result Comment: EAEC - Enteroaggregative E. Coli EPEC- Enteropathogenic E. Coli ETEC- Enterotoxigenic E. Coli lt/st STEC- Shigella-like toxin-producing E. Coli stx1/stx2 EIEC- Shigella/Enteroinvasive E. Coli Performed By: #### G IPANEL ####[facility] Ilydkexrri8897 [place] [address]Dr. Tadeo Smyth GIPNLHD PARASITES GI PANEL PARASITES Normal [facility] Comment on above: Performed By: #### G IPANEL ####[facility] Hnehhgvwbb7198 [place] [address]Dr. Tadeo Smyth GIPNLHD VIRUS GI PANEL VIRUSES Normal [facility] Comment on above: Performed By: #### G IPANEL ####[facility] Zbqpaiomlk159[address] [place], [place] [address]Dr. Tadeo Smyth Norovirus GI/GII Not detected Normal NOT DETECTED [facility] Comment on above: Performed By: #### G IPANEL ####[facility] Zkaxcdwdhy377[address] [place], [place] [address]Dr. Tadeo Smyth P. Shigelloides Not detected Normal NOT DETECTED [facility] Comment on above: Performed By: #### G IPANEL ####[facility] Tcguxdborf5095[address] [place], [place] [address]Dr. Tadeo Smyth Rotavirus A Not detected Normal NOT DETECTED [facility] Comment on above: Performed By: #### G IPANEL ####[facility] Oqggouucyv2705[address] [place], [place] [address]Dr. Margotnicole Smyth Salmonella Not detected Normal NOT DETECTED [facility] Comment on above: Performed By: #### G IPANEL ####[facility] Qfvjdxhkvg9309[address] [place], [place] [address]Dr. Margotnicole Smyth Sapovirus Not detected Normal NOT DETECTED [facility] Comment on above: Performed By: #### G IPANEL ####[facility] Ymqhmfjxvr5533[address] [place], [place] [address]Dr. Tadeo Smyth STEC Not detected Normal NOT DETECTED [facility] Comment on above: Performed By: #### G IPANEL ####[facility] Koppkjicqz9365[address] [place], [place] [address]Dr. Tadeo Smyth Vibrio Not detected Normal NOT DETECTED [facility] Comment on above: Performed By: #### G IPANEL ####[facility] Bokdqupkag875[address] [place], [place] [address]Dr. Tadeo Smyth Vibrio Cholera Not detected Normal NOT DETECTED [facility] Comment on above: Performed By: #### G IPANEL ####[facility] Bqfecbifps8411[address] [place], [place] [address]Dr. Tadeo Smyth Y. Enterocolitica Not detected Normal NOT DETECTED [facility] Comment on above: Performed By: #### G IPANEL ####[facility] Cqlpnxomks9827[address] [place], [place] [address]Dr. Tadeo Smyth AMYLASEon 06-06-2022 Amylase [Catalytic activity/Vol] 61 U/L Normal 25-115 [facility] Comment on above: Performed By: #### A KEITH MARTÍNEZ ####[facility] Jsfwiovaxq2200[address] [place], [place] [address]Dr. Tadeo Smyth CBC AUTO DIFFon 06-06-2022 BASO # 0.0 103/ul Normal 0.0-0.1 [facility] Comment on above: Performed By: #### C BC ####[facility] Evixhomssc055[address] [place], [place] [address]Dr. Tadeo Haja Basophils/100 WBC (Bld) 0.5 % Normal 0.2-2.0 [facility] Comment on above: Performed By: #### C BC ####[facility] Pvmymuerqq0785[address] [place], [place] [address]Dr. Tadeo Smyth EO # 0.2 103/ul Normal 0.0-0.7 [facility] Comment on above: Performed By: #### C BC ####[facility] Agalhanczq8929[address] [place], [place] [address]Dr. Tadeo Haja Eosinophils/100 WBC (Bld) 3.4 % Normal 0.9-7.0 [facility] Comment on above: Performed By: #### C BC ####[facility] Jiyzyyigke6614[address] [place], [place] [address]Dr. Tadeo Smyth Erythrocyte distribution width (RBC) [Ratio] 13.2 % Normal 11.0-15.0 [facility] Comment on above: Performed By: #### C BC ####[facility] Anfwqscujc[address] [place], [place] [address]Dr. Tadeo Smyth Hematocrit (Bld) [Volume fraction] 38.3 % Normal 36.0-48.0 [facility] Comment on above: Performed By: #### C BC ####[facility] Bxxamjqtjl4904 [place] [address]Dr. Tadeo Smyth Hemoglobin (Bld) [Mass/Vol] 12.0 g/dL Normal 12.0-16.0 [facility] Comment on above: Performed By: #### C BC ####[facility] Zgseltdyao6734[address] [place], [place] [address]Dr. Tadeo Smyth IG # 0.01 10e3/ul Normal 0.00-0.03 [facility] Comment on above: Performed By: #### C BC ####[facility] Ulfxjoosbj7879[address] [place], [place] [address]Dr. Tadeo Smyth IG % 0.2 % Normal 0.0-0.5 [facility] Comment on above: Performed By: #### C BC ####[facility] Fbuaefqouk4925[address] [place], [place] [address]Dr. Tadeo Smyth LYMPH # 1.7 103/ul Normal 1.2-3.8 [facility] Comment on above: Performed By: #### C BC ####[facility] Lrrvgrouwr0225 [place] [address]Dr. Tadeo Smyth Lymphocytes/100 WBC (Bld) 28.1 % Normal 20.5-60.0 [facility] Comment on above: Performed By: #### C BC ####[facility] Boaornmvyp0936 [place] [address]DrNeo Smyth MANUAL DIFF REQ NO Normal [facility] Comment on above: Performed By: #### C BC ####[facility] Barmrpkoae853[address] [place], [place] [address]DrNeo Smyth MCH (RBC) [Entitic mass] 28.5 pg Normal 26.7-34.0 [facility] Comment on above: Performed By: #### C BC ####[facility] Hofeqvwhxr039[address] [place], [place] [address]Dr. Tadeo Smyth MCHC (RBC) [Mass/Vol] 31.3 g/dL Normal 29.9-35.2 [facility] Comment on above: Performed By: #### C BC ####[facility] Xzzrldieys8095 [place] [id number] Smyth MCV (RBC) [Entitic vol] 91.0 fL Normal 81.0-99.0 [facility] Comment on above: Performed By: #### C BC ####[facility] Pxqyvoxoov286[address] [place], [place] [address]DrNeo Smyth MONO # 0.4 103/ul Normal 0.3-0.8 [facility] Comment on above: Performed By: #### C BC ####[facility] Hylqeczknj529[address] [place], [place] [address]DrNeo Smyth Monocytes/100 WBC (Bld) 7.1 % Normal 1.7-12.0 [facility] Comment on above: Performed By: #### C BC ####[facility] Cngcqmatjf2145[address] [place], [place] [address]DrNeo Smyth NEUT # 3.6 103/ul Normal 1.4-6.5 [facility] Comment on above: Performed By: #### C BC ####[facility] Sgmdtwtaog02[address] [place], [place] [address]DrNeo Smyth Neutrophils/100 WBC (Bld) 60.7 % Normal 43.0-75.0 [facility] Comment on above: Performed By: #### C BC ####[facility] Nnyutdqnhd25[address] [place], [place] [address]DrNeo Smyth Platelet mean volume (Bld) [Entitic vol] 8.9 fL Critically low 9.5-13.5 [facility] Comment on above: Performed By: #### C BC ####[facility] Xrzipspbir4801[address] [place], [place] [address]DrNeo Smyth PLT 374 103/ul Normal 150-450 [facility] Comment on above: Performed By: #### C BC ####[facility] Jpseifutcq888[address] [place], [place] [address]DrNeo Smyth RBC 4.21 106/ul Normal 4.20-5.40 [facility] Comment on above: Performed By: #### C BC ####[facility] Kqspowvqrx5259[address] [place], [place] [address]Dr. Tadeo Smyth WBC 5.9 103/ul Normal 4.0-11.0 [facility] Comment on above: Performed By: #### C BC ####[facility] Skdtxjyltx1959[address] [place], [place] [address]Dr. Tadeo Smyth CT ABD/PELV W CONon 06-06-[address] ABD/PELV W CON Normal [facility] ER URINE PROFILEon 2 Bilirubin Ql (U) Negative Normal NEGATIVE [facility] Comment on above: Performed By: #### SANDRO MERCHANTRO ####[facility] Zepnzykpje526[address] [place], [place] [address]Dr. Tadeo Smyth Clarity (U) CLOUDY Abnormal CLEAR [facility] Comment on above: Performed By: #### SANDRO MERCHANTRO ####[facility] Cnuuwlzdlp509[address] [place], [place] [address]Dr. Tadeo Smyth Color (U) LT. YELLOW Normal YELLOW [facility] Comment on above: Performed By: #### KAROL MERCHANT ####[facility] Vavmgvlsit4269[address] [place], [place] [address]Dr. Tadeo Smyth ERUAHD A micrscopic examina tion will be performed if indicated. Normal [facility] Comment on above: Performed By: #### SANDRO MERCHANTRO ####[facility] Esjnwswthj6723[address] [place], [place] [address]Dr. Tadeo Smyth Glucose Ql (U) Negative Normal NEGATIVE [facility] Comment on above: Performed By: #### SANDRO MERCHANTRO ####[facility] Tsrwmyqqrc828[address] [place], [place] [address]Dr. Tadeo Smyth Hemoglobin Ql (U) TRACE-INTACT Abnormal NEGATIVE [facility] Comment on above: Performed By: #### SANDRO MERCHANTRO ####[facility] Iwjiyfitvd1724 [place] [address]Dr. Tadeo Smyth Ketones Ql (U) Negative Normal NEGATIVE [facility] Comment on above: Performed By: #### KAROL MERCHANT ####[facility] Pmxcouxtjq7926 [place] [address]Dr. Tadeo Smyth LEUKOCYTES SMALL Abnormal NEGATIVE [facility] Comment on above: Performed By: #### KAROL MERCHANT ####[facility] Kkinyghgml7727[address] [place], [place] [address]Dr. Tadeo Smyth Nitrite Ql (U) Negative Normal NEGATIVE [facility] Comment on above: Performed By: #### KAROL MERCHANT ####[facility] Zqwdzavwlo346[address] [place], [place] [address]Dr. Tadeo Smyth pH (U) 6.0 [pH] Normal 5-9 [facility] Comment on above: Performed By: #### KAROL MERCHANT ####[facility] Tdeineypzr665[address] [place], [place] [address]Dr. Tadeo Smyth SPEC GRAVITY 1.020 Normal 1.005-<=1.0 25 [facility] Comment on above: Performed By: #### KAROL MERCHANT ####[facility] Tuvemjdycm9314[address] [place], [place] [address]Dr. Tadeo Smyth UA PROTEIN Negative Normal NEGATIVE/ TRACE [facility] Comment on above: Performed By: #### KAROL MERCHANT ####[facility] Jsvcubhaar4626[address] [place], [place] [address]Dr. Tadeo Smyth UR MICRO IND INDICATED Normal [facility] Comment on above: Performed By: #### KAROL MERCHANT ####[facility] Psrenoekwa912[address] [place], [place] [address]Dr. Tadeo Smyth Urobilinogen Qn (U) 0.2 {Benito'U}/dL Normal 0.2 - 1. 0 [facility] Comment on above: Performed By: #### KAROL MERCHANT ####[facility] Yfflibwdcn5439[address] [place], [place] [address]Dr. Tadeo Smyth LIPASEon 06-06-2022 Lipase [Catalytic activity/Vol] 100.0 U/L Normal 73.0-393.0 [facility] Comment on above: Performed By: #### A MY, LIPA ####[facility] Fiquhiiemu4046 [place] [address]Dr. Tadeo Smyth PROF 14(COMP METB)on 022 Albumin [Mass/Vol] 3.3 g/dL Critically low 3.4-5.0 [facility] Comment on above: Performed By: #### C MP ####[facility] Lyyjqmonqq5033 [place] [address]Dr. Tadeo Smyth Albumin/Globulin [Mass ratio] 0.9 {ratio} Normal [facility] Comment on above: Performed By: #### C MP ####[facility] Btfqqspgjp886[address] [place], [place] [address]Dr. Tadeo Smyth ALP [Catalytic activity/Vol] 140 U/L Critically high 46-116 [facility] Comment on above: Performed By: #### C MP ####[facility] Bjqnodahon639[address] [place], [place] [address]Dr. Tadeo Smyth ALT [Catalytic activity/Vol] 23 U/L Normal 14-59 [facility] Comment on above: Performed By: #### C MP ####[facility] Neuptdeflb4099[address] [place], [place] [address]Dr. Tadeo Smyth Anion gap [Moles/Vol] 11.6 mmol/L Normal [facility] Comment on above: Performed By: #### C MP ####[facility] Ekaelpsfwi7880[address] [place], [place] [address]Dr. Tadeo Smyth AST [Catalytic activity/Vol] 18 U/L Normal 15-37 [facility] Comment on above: Performed By: #### C MP ####[facility] Qsjxjdkthj[address] [place], [place] [address]Dr. Tadeo Smyth Bilirubin [Mass/Vol] 0.2 mg/dL Normal 0.2-1.0 [facility] Comment on above: Performed By: #### C MP ####[facility] Sgbllafxfg4641 [place] [address]Dr. Tadeo Smyth Calcium [Mass/Vol] 8.8 mg/dL Normal 8.5-10.1 [facility] Comment on above: Performed By: #### C MP ####[facility] Fgbrcssbjb1993 [place] [address]Dr. Tadeo Smyth Chloride [Moles/Vol] 109 mmol/L Critically high 98-107 [facility] Comment on above: Performed By: #### C MP ####[facility] Fibvsllpfc5620[address] [place], [place] [address]Dr. Tadeo Smyth CO2 [Moles/Vol] 26.3 mmol/L Normal 21.0-32.0 [facility] Comment on above: Performed By: #### C MP ####[facility] Oczdvpisgz1410[address] [place], [place] [address]Dr. Tadeo Smyth Creatinine [Mass/Vol] 0.81 mg/dL Normal 0.55-1.02 [facility] Comment on above: Performed By: #### C MP ####[facility] Ekiybytarv9212[address] [place], [place] [address]Dr. Tadeo Smyth EGFR-AF HAITIAN >60 Normal >=60 [facility] Comment on above: Performed By: #### C MP ####[facility] Ytzqticrsp090[address] [place], [place] [address]Dr. Tadeo Smyth EGFR-NON AF HAITIAN >60 Normal >=60 [facility] Comment on above: Performed By: #### C MP ####[facility] Jwdvkwwgpz1359[address] [place], [place] [address]Dr. Tadeo Smyth Globulin (S) [Mass/Vol] 3.7 g/dL Normal [facility] Comment on above: Performed By: #### C MP ####[facility] Vkwlxwtavw5712[address] [place], [place] [address]Dr. Tadeo Haja Glucose [Mass/Vol] 90 mg/dL Normal 74-106 [facility] Comment on above: Performed By: #### C MP ####[facility] Jyufdajagb25[address] [place], [place] [address]Dr. Tadeo Smyth Potassium [Moles/Vol] 3.9 mmol/L Normal 3.5-5.1 [facility] Comment on above: Performed By: #### C MP ####[facility] Ambhvenerq8779[address] [place], [place] [address]Dr. Tadeo Smyth Protein [Mass/Vol] 7.0 g/dL Normal 6.4-8.2 [facility] Comment on above: Performed By: #### C MP ####[facility] Tcmtaszxyb4540[address] [place], [place] [address]Dr. Tadeo Smyth Sodium [Moles/Vol] 143 mmol/L Normal 136-145 [facility] Comment on above: Performed By: #### C MP ####[facility] Jtxylvmejp5917[address] [place], [place] [address]Dr. Tadeo Smyth Urea nitrogen [Mass/Vol] 12.0 mg/dL Normal 7.0-18.0 [facility] Comment on above: Performed By: #### C MP ####[facility] Onkhmgulwv3579[address] [place], [place] [address]Dr. Tadeo Smyth Urea nitrogen/Creatinine [Mass ratio] 14.8 mg/mg Normal [facility] Comment on above: Performed By: #### C MP ####[facility] Zdwnwedmmw120[address] [place], [place] [address]Dr. Tadeo Smyth URINE MICROSCOPIC ONLYon BACTERIA LARGE Abnormal NONE SEEN [facility] Comment on above: Performed By: #### SANDRO MERCHANTRO ####[facility] Bmjaauwuql267[address] [place], [place] [address]Dr. Tadeo Smyth Bacteria identified Cx Nom (U) INDICATED Normal [facility] Comment on above: Performed By: #### Matthew FRANCISCO UMICRO ####[facility] Lxbkkmudjn74[address] [place], [place] [address]Dr. Tadeo Smyth CAST NONE SEEN Normal NONE SEEN [facility] Comment on above: Performed By: #### Matthew FRANCISCO UMICRO ####[facility] Ouunctngam2334[address] [place], [place] [address]Dr. Tadeo Smyth Crystals LM Nom (Urine sed) NONE SEEN Normal NONE SEEN [facility] Comment on above: Performed By: #### Matthew FRANCISCO UMICRO ####[facility] L[address]ubarqxi7438 [place] [address]Dr. Tadeo Smyth Epithelial cells LM Ql (Urine sed) RARE Normal NONE SEEN /RARE [facility] Comment on above: Performed By: #### Matthew FRANCISCO UMICRO ####[facility] Xuztclljdb7973 [place] [id number]. Tadeo Smyth MUCOUS TRACE Abnormal NONE SEEN [facility] Comment on above: Performed By: #### Matthew FRANCISCO UMICRO ####[facility] Lhgfklhurx9108 [place] [address]Dr. Tadeo Smyth RBC 0-2 Normal 0-2 [facility] Comment on above: Performed By: #### Matthew FRANCISCO ICRO ####[facility] Afmoeekxzk5727 [place] [address]Dr. Tadeo Smyth WBC 2-5 Abnormal NONE SEEN [facility] Comment on above: Performed By: #### Matthew FRANCISCO ICRO ####[facility] Ezozisgpvn1744 [place] [address]Dr. Tadeo Smyth AMYLASEon 06-04-2022 Amylase [Catalytic activity/Vol] 61 U/L Normal 25-115 [facility] Comment on above: Performed By: #### A MY, CMP, LIPA ####[facility] Sqmcvugzwe2324 [place] [address]Dr. Tadeo Smyth CBC AUTO DIFFon 06-04-2022 BASO # 0.0 103/ul Normal 0.0-0.1 [facility] Comment on above: Performed By: #### C BC ####[facility] Csykqicmxe3723 [place] [address]Dr. Tadeo Smyth Basophils/100 WBC (Bld) 0.5 % Normal 0.2-2.0 [facility] Comment on above: Performed By: #### C BC ####[facility] Nmmswgozvm[address] [place], [place] [address]Dr. Tadeo Smyth EO # 0.3 103/ul Normal 0.0-0.7 [facility] Comment on above: Performed By: #### C BC ####[facility] Hsdmnbvbtj9964 [place] [address]Dr. Tadeo Smyth Eosinophils/100 WBC (Bld) 4.7 % Normal 0.9-7.0 [facility] Comment on above: Performed By: #### C BC ####[facility] Hlcrwxkcbh0506 [place] [address]Dr. Tadeo Smyth Erythrocyte distribution width (RBC) [Ratio] 13.2 % Normal 11.0-15.0 [facility] Comment on above: Performed By: #### C BC ####[facility] Ucugjvjlwz[address] [place], [place] [address]Dr. Tadeo Smyth Hematocrit (Bld) [Volume fraction] 36.9 % Normal 36.0-48.0 [facility] Comment on above: Performed By: #### C BC ####[facility] Bjniergguw[address] [place], [place] [address]Dr. Tadeo Smyth Hemoglobin (Bld) [Mass/Vol] 11.9 g/dL Critically low 12.0-16.0 [facility] Comment on above: Performed By: #### C BC ####[facility] Wlsksoaace[address] [place], [place] [address]Dr. Tadeo Smyth IG # 0.01 10e3/ul Normal 0.00-0.03 [facility] Comment on above: Performed By: #### C BC ####[facility] Bathfkgcjr507[address] [place], [place] [address]Dr. Tadeo Smyth IG % 0.2 % Normal 0.0-0.5 [facility] Comment on above: Performed By: #### C BC ####[facility] Bcpjbmlzyo89[address] [place], [place] [address]Dr. Tadeo Smyth LYMPH # 2.3 103/ul Normal 1.2-3.8 [facility] Comment on above: Performed By: #### C BC ####[facility] Edmmycjvzq[address] [place], [place] [address]Dr. Tadeo Smyth Lymphocytes/100 WBC (Bld) 37.3 % Normal 20.5-60.0 [facility] Comment on above: Performed By: #### C BC ####[facility] Wioknjwdrg1161 [place] [address]Dr. Tadeo Smyth MANUAL DIFF REQ NO Normal [facility] Comment on above: Performed By: #### C BC ####[facility] Fterlezeml9518 [place] [phone]. Tadeo Smyth MCH (RBC) [Entitic mass] 29.0 pg Normal 26.7-34.0 [facility] Comment on above: Performed By: #### C BC ####[facility] Ffiweulzxi1870 [place] [address]Dr. Tadeo Smyth MCHC (RBC) [Mass/Vol] 32.2 g/dL Normal 29.9-35.2 [facility] Comment on above: Performed By: #### C BC ####[facility] Vzydpvrgto84[address] [place], [place] [address]Dr. Tadeo Smyth MCV (RBC) [Entitic vol] 90.0 fL Normal 81.0-99.0 [facility] Comment on above: Performed By: #### C BC ####[facility] Qyjwneqfim76[address] [place], [place] [address]Dr. Tadeo Smyth MONO # 0.4 103/ul Normal 0.3-0.8 [facility] Comment on above: Performed By: #### C BC ####[facility] Wudceplrid[address] [place], [place] [address]Dr. Tadeo Smyth Monocytes/100 WBC (Bld) 6.8 % Normal 1.7-12.0 [facility] Comment on above: Performed By: #### C BC ####[facility] Wrpdyxaxyk6[address] [place], [place] [address]Dr. Tadeo Smyth NEUT # 3.2 103/ul Normal 1.4-6.5 [facility] Comment on above: Performed By: #### C BC ####[facility] Hzgycrwndf59488[address] [place], [place] [address]Dr. Tadeo Smyth Neutrophils/100 WBC (Bld) 50.5 % Normal 43.0-75.0 [facility] Comment on above: Performed By: #### C BC ####[facility] Bceonyinqm9283 [place] [address]Dr. Tadeo Smyth Platelet mean volume (Bld) [Entitic vol] 8.9 fL Critically low 9.5-13.5 [facility] Comment on above: Performed By: #### C BC ####[facility] Ficjfmkpae8940 [place] [address]Dr. Tadeo Smyth PLT 387 103/ul Normal 150-450 [facility] Comment on above: Performed By: #### C BC ####[facility] Bixlmijxhv1707 [place] [address]Dr. Tadeo Smyth RBC 4.10 106/ul Critically low 4.20-5.40 [facility] Comment on above: Performed By: #### C BC ####[facility] Xaeodbqtef4374 [place] [address]Dr. Tadeo Smyth WBC 6.2 103/ul Normal 4.0-11.0 [facility] Comment on above: Performed By: #### C BC ####[facility] Bibnvpbson553[address] [place], [place] [address]Dr. Tadeo Smyth CT ABD/PELV W CONon 06-04-[address] ABD/PELV W CON Normal [facility] ER URINE PROFILEon 2 Bilirubin Ql (U) Negative Normal NEGATIVE [facility] Comment on above: Performed By: #### KAROL MERCHANT ####[facility] Lxelzrsdvb325[address] [place], [place] [address]DrNeo Smyth Clarity (U) CLEAR Normal CLEAR [facility] Comment on above: Performed By: #### SANDRO MERCHANTRO ####[facility] Mhfyfgcrja46[address] [place], [place] [address]DrNeo Smyth Color (U) LT. YELLOW Normal YELLOW [facility] Comment on above: Performed By: #### SANDRO MERCHANTRO ####[facility] Havbxqwwby4684 [place] [address]DrNeo ENG A micrscopic examina tion will be performed if indicated. Normal [facility] Comment on above: Performed By: #### SANDRO MERCHANTRO ####[facility] Nvraturnwh45[address] [place], [place] [address]Dr. Tadeo Smyth Glucose Ql (U) Negative Normal NEGATIVE [facility] Comment on above: Performed By: #### Matthew FRANCISCO UMICRO ####[facility] Ueqcegumog224[address] [place], [place] [address]Dr. Tadeo Haja Hemoglobin Ql (U) TRACE-INTACT Abnormal NEGATIVE [facility] Comment on above: Performed By: #### Matthew FRANCISCO UMICRO ####[facility] Xagygkkifr860[address] [place], [place] [address]Dr. Tadeo Smyth Ketones Ql (U) Negative Normal NEGATIVE [facility] Comment on above: Performed By: #### Matthew FRANCISCO UMICRO ####[facility] Fnqfiqukvg4101[address] [place], [place] [address]Dr. Tadeo Smyth LEUKOCYTES Negative Normal NEGATIVE [facility] Comment on above: Performed By: #### Matthew FRANCISCO UMICRO ####[facility] Oybirtveok50[address] [place], [place] [address]Dr. Tadeo Smyth Nitrite Ql (U) Negative Normal NEGATIVE [facility] Comment on above: Performed By: #### Matthew FRANCISCO UMICRO ####[facility] Qanzwpremj938[address] [place], [place] [address]Dr. Tadeo Smyth pH (U) 6.5 [pH] Normal 5-9 [facility] Comment on above: Performed By: #### Matthew FRANCISCO UMICRO ####[facility] Pojwsurawt17[address] [place], [place] [address]Dr. Tadeo Smyth SPEC GRAVITY 1.015 Normal 1.005-<=1.0 25 [facility] Comment on above: Performed By: #### Matthew FRANCISCO UMICRO ####[facility] Knkmzbpzzn214[address] [place], [place] [address]Dr. Tadeo Smyth UA PROTEIN Negative Normal NEGATIVE/ TRACE [facility] Comment on above: Performed By: #### E KAROL FRANCISCO ####[facility] Geeafzkkwa3421 [place] [address]Dr. Tadeo Smyth UR MICRO IND INDICATED Normal [facility] Comment on above: Performed By: #### E KAROL FRANCISCO ####[facility] Vsrekwpmec5983 [place] [address]Dr. Tadeo Smyth Urobilinogen Qn (U) 0.2 {Benito'U}/dL Normal 0.2 - 1. 0 [facility] Comment on above: Performed By: #### E KAROL FRANCISCO ####[facility] Rgydiapxqg6014 [place] [address]Dr. Tadeo Smyth LIPASEon 06-04-2022 Lipase [Catalytic activity/Vol] 81.0 U/L Normal 73.0-393.0 [facility] Comment on above: Performed By: #### A MY, CMP, LIPA ####[facility] Acqwhhnnpa8146 [place] [address]Dr. Tadeo Smyth PROF 14(COMP METB)on 022 Albumin [Mass/Vol] 3.6 g/dL Normal 3.4-5.0 [facility] Comment on above: Performed By: #### A MY, CMP, LIPA ####[facility] Bwgriwmoth93[address] [place], [place] [address]Dr. Tadeo Smyth Albumin/Globulin [Mass ratio] 1.0 {ratio} Normal [facility] Comment on above: Performed By: #### A MY, CMP, LIPA ####[facility] Qxvtbgrspn3607 [place] [address]Dr. Tadeo Smyth ALP [Catalytic activity/Vol] 150 U/L Critically high 46-116 [facility] Comment on above: Performed By: #### A MY, CMP, LIPA ####[facility] Vwqkyqebhv9201 [place] [address]Dr. Tadeo Smyth ALT [Catalytic activity/Vol] 23 U/L Normal 14-59 [facility] Comment on above: Performed By: #### A MY, CMP, LIPA ####[facility] Hfzksfnbke9850 [place] [address]Dr. Tadeo Smyth Anion gap [Moles/Vol] 13.2 mmol/L Normal [facility] Comment on above: Performed By: #### A MY, CMP, LIPA ####[facility] Zlxxgktqmz4293 [place] [address]Dr. Tadeo Smyth AST [Catalytic activity/Vol] 12 U/L Critically low 15-37 [facility] Comment on above: Performed By: #### A MY, CMP, LIPA ####[facility] Kjlifsqqwu1315[address] [place], [place] [address]Dr. Tadeo Smyth Bilirubin [Mass/Vol] 0.1 mg/dL Critically low 0.2-1.0 [facility] Comment on above: Performed By: #### A MY, CMP, LIPA ####[facility] Kvmkckdibw479[address] [place], [place] [address]Dr. Tadeo Smyth Calcium [Mass/Vol] 9.0 mg/dL Normal 8.5-10.1 [facility] Comment on above: Performed By: #### A MY, CMP, LIPA ####[facility] Ddebeihdpw[address] [place], [place] [address]Dr. Tadeo Smyth Chloride [Moles/Vol] 104 mmol/L Normal 98-107 [facility] Comment on above: Performed By: #### A MY, CMP, LIPA ####[facility] Npzmpcqlah[address] [place], [place] [address]Dr. Tadeo Smyth CO2 [Moles/Vol] 26.6 mmol/L Normal 21.0-32.0 [facility] Comment on above: Performed By: #### A MY, CMP, LIPA ####[facility] Fexnffdfkg97[address] [place], [place] [address]Dr. Tadeo Smyth Creatinine [Mass/Vol] 0.97 mg/dL Normal 0.55-1.02 [facility] Comment on above: Performed By: #### A MY, CMP, LIPA ####[facility] Rzdxztldgg[address] [place], [place] [address]Dr. Tadeo Smyth EGFR-AF HAITIAN >60 Normal >=60 [facility] Comment on above: Performed By: #### A MY, CMP, LIPA ####[facility] Slhoyoyagt0228 [place] [address]Dr. Tadeo Smyth EGFR-NON AF HAITIAN 60 mL/min/1.73m2 Normal >=60 [facility] Comment on above: Performed By: #### A MY, CMP, LIPA ####[facility] Iteprejuco5247 [place] [address]Dr. Tadeo Smyth Globulin (S) [Mass/Vol] 3.7 g/dL Normal [facility] Comment on above: Performed By: #### A MY, CMP, LIPA ####[facility] Vmpteifrlo9442 [place] [address]Dr. Tadeo Smyth Glucose [Mass/Vol] 109 mg/dL Critically high 74-106 T [facility] Comment on above: Performed By: #### A MY, CMP, LIPA ####[facility] Dvidklsqdk0786 [place] [address]Dr. Tadeo Smyth Potassium [Moles/Vol] 3.8 mmol/L Normal 3.5-5.1 [facility] Comment on above: Performed By: #### A MY, CMP, LIPA ####[facility] Yfprvkhxzt8413[address] [place], [place] [address]Dr. Tadeo Smyth Protein [Mass/Vol] 7.3 g/dL Normal 6.4-8.2 [facility] Comment on above: Performed By: #### A MY, CMP, LIPA ####[facility] Dzklxfnizq3507 [place] [address]Dr. Tadeo Smyth Sodium [Moles/Vol] 140 mmol/L Normal 136-145 [facility] Comment on above: Performed By: #### A MY, CMP, LIPA ####[facility] Jimrhiyklc9207 [place] [address]Dr. Tadeo Smyth Urea nitrogen [Mass/Vol] 21.0 mg/dL Critically high 7.0-18.0 [facility] Comment on above: Performed By: #### A MY, CMP, LIPA ####[facility] Iiworyclzv9411 [place] [address]Dr. Tadeo Smyth Urea nitrogen/Creatinine [Mass ratio] 21.6 mg/mg Normal [facility] Comment on above: Performed By: #### A MY, CMP, LIPA ####[facility] Deeevswwja658[address] [place], [place] [address]Dr. Tadeo Smyth URINE MICROSCOPIC ONLYon BACTERIA NONE SEEN Normal NONE SEEN [facility] Comment on above: Performed By: #### SANDRO MERCHANTRO ####[facility] Mvrmcrccxj[address] [place], [place] [address]Dr. Tadeo Smyth Bacteria identified Cx Nom (U) NOT INDICATED Normal [facility] Comment on above: Performed By: #### SANDRO MERCHANTRO ####[facility] Nhxxqkhmcm5826[address] [place], [place] [address]Dr. Tadeo Smyth CAST NONE SEEN Normal NONE SEEN [facility] Comment on above: Performed By: #### SANDRO MERCHANTRO ####[facility] Yvyyxywdjm3415[address] [place], [place] [address]Dr. Tadeo Smyth Crystals LM Nom (Urine sed) NONE SEEN Normal NONE SEEN [facility] Comment on above: Performed By: #### SANDRO MERCHANTRO ####[facility] Utodyugxzo2732[address] [place], [place] [address]Dr. Tadeo Smyth Epithelial cells LM Ql (Urine sed) FEW Abnormal NONE SEEN /RARE [facility] Comment on above: Performed By: #### SANDRO MERCHANTRO ####[facility] Xlgdjoljvt8738[address] [place], [place] [address]Dr. Tadeo Smyth MUCOUS NONE SEEN Normal NONE SEEN [facility] Comment on above: Performed By: #### RANDI MERCHANTICRO ####[facility] Vtyfvxfkqr9640[address] [place], [place] [address]Dr. Tadeo Smyth RBC 0-2 Normal 0-2 [facility] Comment on above: Performed By: #### Matthew FRANCISCO UMICRO ####[facility] Xtaqrxwrjj052[address] [place], [place] [address]Dr. Tadeo Smyth WBC NONE SEEN Normal NONE SEEN [facility] Comment on above: Performed By: #### E RUKAROL Hairston ####[facility] Iylsxghxdu0324 [place] [address]Dr. Tadeo Smyth MICRO OTHER TESTSOrdered By: Guillermo Rocha on 04-29-2022 Fecal WBC Lactoferrin Negative (04/29/22 8:00 AM) Normal Negative [facility] [place] CULTURE URINEon 03-31-2022 CULTURE URINE Normal [facility] Comment on above: Performed By: #### U RCX ####[facility] Sqpwplkxqs[address] [place], [place] [address]Dr. Tadeo Smyth CBC AUTO DIFFon 03-30-2022 BASO # 0.0 103/ul Normal 0.0-0.1 [facility] Comment on above: Performed By: #### C BC ####[facility] Nwztpsczny179[address] [place], [place] [address]Dr. Tadeo Smyth Basophils/100 WBC (Bld) 0.4 % Normal 0.2-2.0 [facility] Comment on above: Performed By: #### C BC ####[facility] Qmbelkvlkd9[address] [place], [place] [address]Dr. Tadeo Smyth EO # 0.3 103/ul Normal 0.0-0.7 [facility] Comment on above: Performed By: #### C BC ####[facility] Wzmksfsamk7[address] [place], [place] [address]Dr. Tadeo Smyth Eosinophils/100 WBC (Bld) 5.1 % Normal 0.9-7.0 [facility] Comment on above: Performed By: #### C BC ####[facility] Cdxtwxnrrc416[address] [place], [place] [address]Dr. Tadoe Smyth Erythrocyte distribution width (RBC) [Ratio] 12.8 % Normal 11.0-15.0 [facility] Comment on above: Performed By: #### C BC ####[facility] Fqczcghgek8[address] [place], [place] [address]Dr. Tadeo Smyth Hematocrit (Bld) [Volume fraction] 36.4 % Normal 36.0-48.0 [facility] Comment on above: Performed By: #### C BC ####[facility] Fpmifykfjp7557 [place] [phone]. Tadeo Smyth Hemoglobin (Bld) [Mass/Vol] 12.0 g/dL Normal 12.0-16.0 [facility] Comment on above: Performed By: #### C BC ####[facility] Mmlqximevv2737 [place] [id number]. Tadeo Smyth IG # 0.02 10e3/ul Normal 0.00-0.03 [facility] Comment on above: Performed By: #### C BC ####[facility] Ragkxnhkrw2428 [place] [address]Dr. Tadeo Smyth IG % 0.4 % Normal 0.0-0.5 [facility] Comment on above: Performed By: #### C BC ####[facility] Acibcrqeng2775[address] [place], [place] [address]Dr. Tadeo Smyth LYMPH # 1.4 103/ul Normal 1.2-3.8 [facility] Comment on above: Performed By: #### C BC ####[facility] Sjittljqlx2607 [place] [address]Dr. Tadeo Smyth Lymphocytes/100 WBC (Bld) 25.5 % Normal 20.5-60.0 [facility] Comment on above: Performed By: #### C BC ####[facility] Cgkewlhofl9965 [place] [address]Dr. Tadeo Smyth MANUAL DIFF REQ NO Normal [facility] Comment on above: Performed By: #### C BC ####[facility] Zpgxwvszvp[address] [place], [place] [address]Dr. Tadeo Smyth MCH (RBC) [Entitic mass] 29.1 pg Normal 26.7-34.0 [facility] Comment on above: Performed By: #### C BC ####[facility] Ybgzqfhhak0958 [place] [address]Dr. Tadeo Smyth MCHC (RBC) [Mass/Vol] 33.0 g/dL Normal 29.9-35.2 [facility] Comment on above: Performed By: #### C BC ####[facility] Aycyleiezj1820 [place] [id number]. Tadeo Smyth MCV (RBC) [Entitic vol] 88.3 fL Normal 81.0-99.0 [facility] Comment on above: Performed By: #### C BC ####[facility] Kpvhowvgjb3128 [place] [phone]. Tadeo Smyth MONO # 0.4 103/ul Normal 0.3-0.8 [facility] Comment on above: Performed By: #### C BC ####[facility] Oviihfompp59[address] [place], [place] [address]Dr. Tadeo Smyth Monocytes/100 WBC (Bld) 7.1 % Normal 1.7-12.0 [facility] Comment on above: Performed By: #### C BC ####[facility] Wzzuizqutc4439[address] [place], [place] [address]Dr. Tadeo Smyth NEUT # 3.4 103/ul Normal 1.4-6.5 [facility] Comment on above: Performed By: #### C BC ####[facility] Bbruvjaiic10[address] [place], [place] [address]Dr. Tadeo Smyth Neutrophils/100 WBC (Bld) 61.5 % Normal 43.0-75.0 [facility] Comment on above: Performed By: #### C BC ####[facility] Rfahtttaxv495[address] [place], [place] [address]Dr. Tadeo Smyth Platelet mean volume (Bld) [Entitic vol] 8.8 fL Critically low 9.5-13.5 [facility] Comment on above: Performed By: #### C BC ####[facility] Yhcmdmwkwd127[address] [place], [place] [address]Dr. Tadeo Smyth PLT 324 103/ul Normal 150-450 [facility] Comment on above: Performed By: #### C BC ####[facility] Nhmeybpnjg[address] [place], [place] [address]Dr. Tdaeo Smyth RBC 4.12 106/ul Critically low 4.20-5.40 [facility] Comment on above: Performed By: #### C BC ####[facility] Zlbgmaomho6027 [place] [address]Dr. Tadeo Smyth WBC 5.5 103/ul Normal 4.0-11.0 [facility] Comment on above: Performed By: #### C BC ####[facility] Wjeimgbhwf9864 [place] [address]Dr. Tadeo Smyth PROF 14(COMP METB)on 022 Albumin [Mass/Vol] 3.1 g/dL Critically low 3.4-5.0 [facility] Comment on above: Performed By: #### C MP ####[facility] Joeclulvem7313 [place] [address]Dr. Tadeo Smyth Albumin/Globulin [Mass ratio] 0.9 {ratio} Normal [facility] Comment on above: Performed By: #### C MP ####[facility] Dorjszncqq[address] [place], [place] [address]Dr. Tadeo Smyth ALP [Catalytic activity/Vol] 119 U/L Critically high 46-116 [facility] Comment on above: Performed By: #### C MP ####[facility] Dgfzqwxxzl5422 [place] [address]Dr. Tadeo Smyth ALT [Catalytic activity/Vol] 17 U/L Normal 14-59 [facility] Comment on above: Performed By: #### C MP ####[facility] Cnvpscjibl7053 [place] [address]Dr. Tadeo Smyth Anion gap [Moles/Vol] 12.0 mmol/L Normal [facility] Comment on above: Performed By: #### C MP ####[facility] Ntpegdgzug3037 [place] [address]Dr. Tadeo Smyth AST [Catalytic activity/Vol] 16 U/L Normal 15-37 [facility] Comment on above: Performed By: #### C MP ####[facility] Fdtdtasajo8167 [place] [address]Dr. Tadeo Smyth Bilirubin [Mass/Vol] 0.4 mg/dL Normal 0.2-1.0 [facility] Comment on above: Performed By: #### C MP ####[facility] Ofakvhrhhf7727 [place] [phone]. Tadeo Smyth Calcium [Mass/Vol] 8.9 mg/dL Normal 8.5-10.1 [facility] Comment on above: Performed By: #### C MP ####[facility] Aqvlcrfobv2748 [place] [address]Dr. Tadeo Smyth Chloride [Moles/Vol] 107 mmol/L Normal 98-107 [facility] Comment on above: Performed By: #### C MP ####[facility] Snmgzbvzih6194 [place] [address]Dr. Tadeo Smyth CO2 [Moles/Vol] 26.9 mmol/L Normal 21.0-32.0 [facility] Comment on above: Performed By: #### C MP ####[facility] Pwtigggjqy15[address] [place], [place] [address]Dr. Tadeo Smyth Creatinine [Mass/Vol] 0.82 mg/dL Normal 0.55-1.02 [facility] Comment on above: Performed By: #### C MP ####[facility] Iqqbuhjxgk3588 [place] [address]Dr. Tadeo Smyth EGFR-AF HAITIAN >60 Normal >=60 [facility] Comment on above: Performed By: #### C MP ####[facility] X[address]vjficmoc[address] [place], [place] [address]Dr. Tadeo Smyth EGFR-NON AF HAITIAN >60 Normal >=60 [facility] Comment on above: Performed By: #### C MP ####[facility] Pyfxqstqgp0040 [place] [address]Dr. Tadeo Smyth Globulin (S) [Mass/Vol] 3.5 g/dL Normal [facility] Comment on above: Performed By: #### C MP ####[facility] Zihfptdkbi[address] [place], [place] [address]Dr. Tadeo Haja Glucose [Mass/Vol] 104 mg/dL Normal 74-106 [facility] Comment on above: Performed By: #### C MP ####[facility] Kcsiwjabxo[address] [place], [place] [address]Dr. Tadeo Smyth Potassium [Moles/Vol] 3.9 mmol/L Normal 3.5-5.1 [facility] Comment on above: Performed By: #### C MP ####[facility] Ymdrztlnoy[address] [place], [place] [address]Dr. Tadeo Smyth Protein [Mass/Vol] 6.6 g/dL Normal 6.4-8.2 [facility] Comment on above: Performed By: #### C MP ####[facility] Dbfkblvtlc[address] [place], [place] [address]Dr. Tadeo Haja Sodium [Moles/Vol] 142 mmol/L Normal 136-145 [facility] Comment on above: Performed By: #### C MP ####[facility] Ciihhvznon[address] [place], [place] [address]Dr. Tadeo Haja Urea nitrogen [Mass/Vol] 5.0 mg/dL Critically low 7.0-18.0 [facility] Comment on above: Performed By: #### C MP ####[facility] T[address]njtkx[address] [place], [place] [address]Dr. Tadeo Haja Urea nitrogen/Creatinine [Mass ratio] 6.1 mg/mg Normal [facility] Comment on above: Performed By: #### C MP ####[facility] Hdrsecmmwq8[address] [place], [place] [address]Dr. Tadeo Haja CBC AUTO DIFFon 03-29-2022 BASO # 0.0 103/ul Normal 0.0-0.1 [facility] Comment on above: Performed By: #### C BC ####[facility] Mxpyyafwhx[address] [place], [place] [address]Dr. Tadeo Haja Basophils/100 WBC (Bld) 0.4 % Normal 0.2-2.0 [facility] Comment on above: Performed By: #### C BC ####[facility] Tzqeokgzmy5[address] [place], [place] [address]Dr. Tadeo Smyth EO # 0.2 103/ul Normal 0.0-0.7 [facility] Comment on above: Performed By: #### C BC ####[facility] Usffukhjwr[address] [place], [place] [address]Dr. Tadeo Smyth Eosinophils/100 WBC (Bld) 4.3 % Normal 0.9-7.0 [facility] Comment on above: Performed By: #### C BC ####[facility] Jueldlzclf27[address] [place], [place] [address]Dr. Tadeo Smyth Erythrocyte distribution width (RBC) [Ratio] 12.9 % Normal 11.0-15.0 [facility] Comment on above: Performed By: #### C BC ####[facility] Pkcjkpiexw24[address] [place], [place] [address]Dr. Tadeo Smyth Hematocrit (Bld) [Volume fraction] 33.8 % Critically low 36.0-48.0 [facility] Comment on above: Performed By: #### C BC ####[facility] Gwerglvvxx[address] [place], [place] [address]Dr. Tadeo Smyth Hemoglobin (Bld) [Mass/Vol] 11.1 g/dL Critically low 12.0-16.0 [facility] Comment on above: Performed By: #### C BC ####[facility] Assycpyhtg64[address] [place], [place] [address]Dr. Tadeo Smyth IG # 0.01 10e3/ul Normal 0.00-0.03 [facility] Comment on above: Performed By: #### C BC ####[facility] Qgqgvjxigf9[address] [place], [place] [address]Dr. Tadeo Smyth IG % 0.2 % Normal 0.0-0.5 [facility] Comment on above: Performed By: #### C BC ####[facility] Wspygggame6060[address] [place], [place] [address]Dr. Tadeo Smyth LYMPH # 1.5 103/ul Normal 1.2-3.8 [facility] Comment on above: Performed By: #### C BC ####[facility] Nokrfwyjig67[address] [place], [place] [address]Dr. Tadeo Smyth Lymphocytes/100 WBC (Bld) 29.9 % Normal 20.5-60.0 [facility] Comment on above: Performed By: #### C BC ####[facility] [address] [place] [address]Dr. Tadeo Smyth MANUAL DIFF REQ NO Normal [facility] Comment on above: Performed By: #### C BC ####[facility] Sgxbuuiaju3597 [place] [address]Dr. Tadeo Smyth MCH (RBC) [Entitic mass] 29.3 pg Normal 26.7-34.0 [facility] Comment on above: Performed By: #### C BC ####[facility] Hzcvsxizud9287 [place] [address]Dr. Tadeo Haja MCHC (RBC) [Mass/Vol] 32.8 g/dL Normal 29.9-35.2 [facility] Comment on above: Performed By: #### C BC ####[facility] Qeamnhbfpf4736 [place] [address]Dr. Tadeo Haja MCV (RBC) [Entitic vol] 89.2 fL Normal 81.0-99.0 [facility] Comment on above: Performed By: #### C BC ####[facility] Adzuraiftr0166 [place] [address]Dr. Tadeo Haja MONO # 0.4 103/ul Normal 0.3-0.8 [facility] Comment on above: Performed By: #### C BC ####[facility] Eobajpsxam2020 [place] [address]Dr. Margotnicole Smyth Monocytes/100 WBC (Bld) 7.8 % Normal 1.7-12.0 [facility] Comment on above: Performed By: #### C BC ####[facility] Gevvvxaztm5244 [place] [address]Dr. Margotnicole Haja NEUT # 2.8 103/ul Normal 1.4-6.5 [facility] Comment on above: Performed By: #### C BC ####[facility] Kjgusmmbgl3668 [place] [address]Dr. Tadeo Smyth Neutrophils/100 WBC (Bld) 57.4 % Normal 43.0-75.0 [facility] Comment on above: Performed By: #### C BC ####[facility] Gevelkteqw3496 [place] [address]Dr. Tadeo Haja Platelet mean volume (Bld) [Entitic vol] 8.9 fL Critically low 9.5-13.5 [facility] Comment on above: Performed By: #### C BC ####[facility] Itvshylrki3442 [place] [address]Dr. Margotnicole Haja PLT 314 103/ul Normal 150-450 [facility] Comment on above: Performed By: #### C BC ####[facility] Hldhxowcvt5130 [place] [address]Dr. Margotnicole Haja RBC 3.79 106/ul Critically low 4.20-5.40 [facility] Comment on above: Performed By: #### C BC ####[facility] Bvgugplitk8310[address] [place], [place] [address]Dr. Tadeo Smyth WBC 4.9 103/ul Normal 4.0-11.0 [facility] Comment on above: Performed By: #### C BC ####[facility] Bwqvpbkkgt[address] [place], [place] [address]Dr. Tadeo Smyth PROF 14(COMP METB)on 022 Albumin [Mass/Vol] 2.8 g/dL Critically low 3.4-5.0 [facility] Comment on above: Performed By: #### C MP ####[facility] Skgveegfgz029[address] [place], [place] [address]Dr. Tadeo Smyth Albumin/Globulin [Mass ratio] 0.8 {ratio} Normal [facility] Comment on above: Performed By: #### C MP ####[facility] Ltlhuwfnsc[address] [place], [place] [address]Dr. Tadeo Smyth ALP [Catalytic activity/Vol] 117 U/L Critically high 46-116 [facility] Comment on above: Performed By: #### C MP ####[facility] Obncabeteg[address] [place], [place] [address]Dr. Tadeo Smyth ALT [Catalytic activity/Vol] 13 U/L Critically low 14-59 [facility] Comment on above: Performed By: #### C MP ####[facility] Zxaiqgzwog924[address] [place], [place] [address]Dr. Tadeo Smyth Anion gap [Moles/Vol] 8.7 mmol/L Normal [facility] Comment on above: Performed By: #### C MP ####[facility] Yrwwlastlt8834[address] [place], [place] [address]Dr. Tadeo Smyth AST [Catalytic activity/Vol] 12 U/L Critically low 15-37 [facility] Comment on above: Performed By: #### C MP ####[facility] Sgfhttrrud5395[address] [place], [place] [address]Dr. Tadeo Haja Bilirubin [Mass/Vol] 0.4 mg/dL Normal 0.2-1.0 [facility] Comment on above: Performed By: #### C MP ####[facility] Wnutshkzmy212[address] [place], [place] [address]Dr. Tadeo Smyth Calcium [Mass/Vol] 8.5 mg/dL Normal 8.5-10.1 [facility] Comment on above: Performed By: #### C MP ####[facility] Rlyhjaogxm6734[address] [place], [place] [address]Dr. Tadeo Smyth Chloride [Moles/Vol] 108 mmol/L Critically high 98-107 [facility] Comment on above: Performed By: #### C MP ####[facility] Cuvdclacou2259[address] [place], [place] [address]Dr. Tadeo Smyth CO2 [Moles/Vol] 28.0 mmol/L Normal 21.0-32.0 [facility] Comment on above: Performed By: #### C MP ####[facility] Ptcyszibtv[address] [place], [place] [address]Dr. Tadeo Smyth Creatinine [Mass/Vol] 0.74 mg/dL Normal 0.55-1.02 [facility] Comment on above: Performed By: #### C MP ####[facility] Ztuofdjnrr[address] [place], [place] [address]Dr. Tadeo Smyth EGFR-AF HAITIAN >60 Normal >=60 [facility] Comment on above: Performed By: #### C MP ####[facility] Sidnjulnzn9715[address] [place], [place] [address]Dr. Tadeo Smyth EGFR-NON AF HAITIAN >60 Normal >=60 [facility] Comment on above: Performed By: #### C MP ####[facility] Sxwreizxlr0363 [place] [address]Dr. Tadeo Smyth Globulin (S) [Mass/Vol] 3.4 g/dL Normal [facility] Comment on above: Performed By: #### C MP ####[facility] Qvnpzmohmf8562 [place] [address]Dr. Tadeo Smyth Glucose [Mass/Vol] 107 mg/dL Critically high 74-106 T [facility] Comment on above: Performed By: #### C MP ####[facility] Rnanseowbn2777[address] [place], [place] [address]Dr. Tadeo Smyth Potassium [Moles/Vol] 3.7 mmol/L Normal 3.5-5.1 [facility] Comment on above: Performed By: #### C MP ####[facility] Psgmvdzljb0836[address] [place], [place] [address]Dr. Tadeo Smyth Protein [Mass/Vol] 6.2 g/dL Critically low 6.4-8.2 [facility] Comment on above: Performed By: #### C MP ####[facility] Qcxhhrtfpt36[address] [place], [place] [address]Dr. Tadeo Smyth Sodium [Moles/Vol] 141 mmol/L Normal 136-145 [facility] Comment on above: Performed By: #### C MP ####[facility] Gtwhpdnwak[address] [place], [place] [address]Dr. Tadeo Smyth Urea nitrogen [Mass/Vol] 7.0 mg/dL Normal 7.0-18.0 [facility] Comment on above: Performed By: #### C MP ####[facility] Uwfrjnrxbw365[address] [place], [place] [address]Dr. Tadeo Smyth Urea nitrogen/Creatinine [Mass ratio] 9.5 mg/mg Normal [facility] Comment on above: Performed By: #### C MP ####[facility] Nczakrlvaz3[address] [place], [place] [address]Dr. Tadeo Smyth XR KUB 1 VIEWon 03-29-2022 XR KUB 1 VIEW Normal [facility] CBC AUTO DIFFon 03-28-2022 BASO # 0.0 103/ul Normal 0.0-0.1 [facility] Comment on above: Performed By: #### C BC ####[facility] Tkozqvafzh4306 [place] [address]Dr. Margotnicole Smyth Basophils/100 WBC (Bld) 0.7 % Normal 0.2-2.0 [facility] Comment on above: Performed By: #### C BC ####[facility] Xaphffiyxk3657[address] [place], [place] [address]Dr. Tadeo Smyth EO # 0.2 103/ul Normal 0.0-0.7 [facility] Comment on above: Performed By: #### C BC ####[facility] Eahdvuoyhj6516[address] [place], [place] [address]Dr. Tadeo Smyth Eosinophils/100 WBC (Bld) 3.3 % Normal 0.9-7.0 [facility] Comment on above: Performed By: #### C BC ####[facility] Ednwqgsqcw212[address] [place], [place] [address]Dr. Tadeo Smyth Erythrocyte distribution width (RBC) [Ratio] 13.2 % Normal 11.0-15.0 [facility] Comment on above: Performed By: #### C BC ####[facility] Xykwfmrcrb7[address] [place], [place] [address]Dr. Tadeo Smyth Hematocrit (Bld) [Volume fraction] 34.2 % Critically low 36.0-48.0 [facility] Comment on above: Performed By: #### C BC ####[facility] Mpwkmlbnkp8511[address] [place], [place] [address]Dr. Tadeo Smyth Hemoglobin (Bld) [Mass/Vol] 10.8 g/dL Critically low 12.0-16.0 [facility] Comment on above: Performed By: #### C BC ####[facility] Mzcmugahaw6[address] [place], [place] [address]Dr. Tadeo Smyth IG # 0.01 10e3/ul Normal 0.00-0.03 [facility] Comment on above: Performed By: #### C BC ####[facility] Qejexsbjhu0918 [place] [id number]. Tadeo Smyth IG % 0.2 % Normal 0.0-0.5 [facility] Comment on above: Performed By: #### C BC ####[facility] Zkowruqnwj8105 [place] [id number]. Tadeo Smyth LYMPH # 1.3 103/ul Normal 1.2-3.8 [facility] Comment on above: Performed By: #### C BC ####[facility] Rxvftadozi8458 [place] [id number]. Tadeo Smyth Lymphocytes/100 WBC (Bld) 28.4 % Normal 20.5-60.0 [facility] Comment on above: Performed By: #### C BC ####[facility] Crffagozyy4210[address] [place], [place] [address]Dr. Tadeo Smyth MANUAL DIFF REQ NO Normal [facility] Comment on above: Performed By: #### C BC ####[facility] Rrpbbrbhwb08[address] [place], [place] [address]Dr. Tadeo Smyth MCH (RBC) [Entitic mass] 28.3 pg Normal 26.7-34.0 [facility] Comment on above: Performed By: #### C BC ####[facility] Gymahouqhj[address] [place], [place] [address]Dr. Tadeo Smyth MCHC (RBC) [Mass/Vol] 31.6 g/dL Normal 29.9-35.2 [facility] Comment on above: Performed By: #### C BC ####[facility] Gtzfkjbpsw[address] [place], [place] [address]Dr. Tadeo Smyth MCV (RBC) [Entitic vol] 89.5 fL Normal 81.0-99.0 [facility] Comment on above: Performed By: #### C BC ####[facility] Ximzrfhsqf[address] [place], [place] [address]Dr. Tadeo Smyth MONO # 0.3 103/ul Normal 0.3-0.8 [facility] Comment on above: Performed By: #### C BC ####[facility] Bawufleyec4095 [place] [phone]. Tadeo Smyth Monocytes/100 WBC (Bld) 5.5 % Normal 1.7-12.0 [facility] Comment on above: Performed By: #### C BC ####[facility] Efeahsautf5785 [place] [phone]. Tadeo Smyth NEUT # 2.8 103/ul Normal 1.4-6.5 [facility] Comment on above: Performed By: #### C BC ####[facility] Rfuurbtgbb4701 [place] [phone]. Tadeo Smyth Neutrophils/100 WBC (Bld) 61.9 % Normal 43.0-75.0 [facility] Comment on above: Performed By: #### C BC ####[facility] Fgmswarzzr1831 [place] [phone]. Tadeo Smyth Platelet mean volume (Bld) [Entitic vol] 9.1 fL Critically low 9.5-13.5 [facility] Comment on above: Performed By: #### C BC ####[facility] Ddpzbhghmz5789 [place] [phone]. Tadeo Smyth PLT 327 103/ul Normal 150-450 [facility] Comment on above: Performed By: #### C BC ####[facility] Jrdqwuytdx4901 [place] [phone]. Tadeo Smyth RBC 3.82 106/ul Critically low 4.20-5.40 [facility] Comment on above: Performed By: #### C BC ####[facility] Ltcwamqgzc3782 [place] [phone]. Tadeo Smyth WBC 4.5 103/ul Normal 4.0-11.0 [facility] Comment on above: Performed By: #### C BC ####[facility] Kdlanvtjsm7675 [place] [address]Dr. Tadeo Smyth POINT OF CARE GLUCOSEon 07-2 Glucose [Mass/Vol] 84 mg/dL Normal 74-106 [facility] Comment on above: Performed By: #### P OCGLUC ####[facility] Cyaoiuqlqj6120 [place] [address]Dr. Tadeo Smyth PROF 14(COMP METB)on 022 Albumin [Mass/Vol] 2.9 g/dL Critically low 3.4-5.0 [facility] Comment on above: Performed By: #### C MP ####[facility] Krjvvyswhl1910 [place] [address]Dr. Tadeo Smyth Albumin/Globulin [Mass ratio] 0.9 {ratio} Normal [facility] Comment on above: Performed By: #### C MP ####[facility] Fzipvzzjox[address] [place], [place] [address]Dr. Tadeo Smyth ALP [Catalytic activity/Vol] 119 U/L Critically high 46-116 [facility] Comment on above: Performed By: #### C MP ####[facility] Zrdlqaalvt60[address] [place], [place] [address]Dr. Tadeo Smyth ALT [Catalytic activity/Vol] 15 U/L Normal 14-59 [facility] Comment on above: Performed By: #### C MP ####[facility] Geniuqvmjk679[address] [place], [place] [address]Dr. Tadeo Smyth Anion gap [Moles/Vol] 7.9 mmol/L Normal [facility] Comment on above: Performed By: #### C MP ####[facility] Zkktuvgynu1620[address] [place], [place] [address]Dr. Tadeo Smyth AST [Catalytic activity/Vol] 11 U/L Critically low 15-37 [facility] Comment on above: Performed By: #### C MP ####[facility] Ecyomjzuee9[address] [place], [place] [address]Dr. Tadeo Smyth Bilirubin [Mass/Vol] 0.4 mg/dL Normal 0.2-1.0 [facility] Comment on above: Performed By: #### C MP ####[facility] Yyuwdjnynr[address] [place], [place] [address]Dr. Tadeo Smyth Calcium [Mass/Vol] 8.7 mg/dL Normal 8.5-10.1 [facility] Comment on above: Performed By: #### C MP ####[facility] Rgngyrmvct8532 [place] [address]Dr. Tadeo Smyth Chloride [Moles/Vol] 109 mmol/L Critically high 98-107 [facility] Comment on above: Performed By: #### C MP ####[facility] Cwkktnrwpq9199 [place] [address]Dr. Tadeo Smyth CO2 [Moles/Vol] 27.9 mmol/L Normal 21.0-32.0 [facility] Comment on above: Performed By: #### C MP ####[facility] Phcsxwadjd0698 [place] [address]Dr. Tadeo Smyth Creatinine [Mass/Vol] 0.75 mg/dL Normal 0.55-1.02 [facility] Comment on above: Performed By: #### C MP ####[facility] Zagjotfour9391 [place] [address]Dr. Tadeo Smyth EGFR-AF HAITIAN >60 Normal >=60 [facility] Comment on above: Performed By: #### C MP ####[facility] Gjzbukhdgh[address] [place], [place] [address]Dr. Tadeo Smyth EGFR-NON AF HAITIAN >60 Normal >=60 [facility] Comment on above: Performed By: #### C MP ####[facility] Gwhjgievdz[address] [place], [place] [address]Dr. Tadeo Smyth Globulin (S) [Mass/Vol] 3.3 g/dL Normal [facility] Comment on above: Performed By: #### C MP ####[facility] Xqxaxbvtdp7478 [place] [address]Dr. Tadeo Smyth Glucose [Mass/Vol] 95 mg/dL Normal 74-106 [facility] Comment on above: Performed By: #### C MP ####[facility] Gmzlsnxxiq[address] [place], [place] [address]Dr. Tadeo Smyth Potassium [Moles/Vol] 3.8 mmol/L Normal 3.5-5.1 [facility] Comment on above: Performed By: #### C MP ####[facility] Sluqiffmnf310[address] [place], [place] [address]Dr. Tadeo Smyth Protein [Mass/Vol] 6.2 g/dL Critically low 6.4-8.2 [facility] Comment on above: Performed By: #### C MP ####[facility] Zgyhqrzutx5852 [place] [address]Dr. Tadeo Smyth Sodium [Moles/Vol] 141 mmol/L Normal 136-145 [facility] Comment on above: Performed By: #### C MP ####[facility] Swezdbzzmw9580 [place] [address]Dr. Tadeo Smyth Urea nitrogen [Mass/Vol] 8.0 mg/dL Normal 7.0-18.0 [facility] Comment on above: Performed By: #### C MP ####[facility] Jpkzxmqvwx9201 [place] [address]Dr. Tadeo Smyth Urea nitrogen/Creatinine [Mass ratio] 10.7 mg/mg Normal [facility] Comment on above: Performed By: #### C MP ####[facility] Whatepsiau03[address] [place] [address]Dr. Tadeo Smyth UA (CLEAN/CATCH) POULTRY HATCHERY MAN/MICRO I F IND.on 03-28-2022 Bilirubin Ql (U) Negative Normal NEGATIVE [facility] Comment on above: Performed By: #### U RANDI GARVEYICRO ####[facility] Wwoximzwuk37[address] [place] [address]Dr. Tadeo Smyth Clarity (U) SL CLOUDY Abnormal CLEAR [facility] Comment on above: Performed By: #### U RANDI GARVEYICRO ####[facility] Gyiiedggpz7400 [place] [address]Dr. Tadeo Smyth Color (U) LT. YELLOW Normal YELLOW [facility] Comment on above: Performed By: #### U MARE UMICRO ####[facility] Bxtguqfugk7157 [place] [address]Dr. Tadeo Smyth Glucose Ql (U) Negative Normal NEGATIVE [facility] Comment on above: Performed By: #### U MARE UMICRO ####[facility] Etljcuwjkh[address] [place], [place] [address]Dr. Tadeo Smyth Hemoglobin Ql (U) TRACE-INTACT Abnormal NEGATIVE [facility] Comment on above: Performed By: #### U ACSBLANE, UMICRO ####[facility] Kiwbrhzwwh1254 [place] [address]Dr. Tadeo Smyth Ketones Ql (U) TRACE Abnormal NEGATIVE [facility] Comment on above: Performed By: #### U ACSBLANE, UMICRO ####[facility] Nqcsxicxzn5323 [place] [address]Dr. Tadeo Smyth LEUKOCYTES Negative Normal NEGATIVE [facility] Comment on above: Performed By: #### U ACSBLANE, UMICRO ####[facility] Vpniukcirq0753 [place] [address]Dr. Tadeo Smyth Nitrite Ql (U) Negative Normal NEGATIVE [facility] Comment on above: Performed By: #### U ACSBLANE, UMICRO ####[facility] Enoxssnszu1135 [place] [address]Dr. Tadeo Smyth pH (U) 6.5 [pH] Normal 5-9 [facility] Comment on above: Performed By: #### U ACSBLANE ICRO ####[facility] Prnopzdfge9769 [place] [address]Dr. Tadeo Smyth SPEC GRAVITY 1.015 Normal 1.005-<=1.0 25 [facility] Comment on above: Performed By: #### U ACSBLANE, ICRO ####[facility] Cuuuxszxia9527 [place] [address]Dr. Tadeo Smyth UA PROTEIN Negative Normal NEGATIVE/ TRACE [facility] Comment on above: Performed By: #### U ACSBLANE, UMICRO ####[facility] Jayapiyupb4772 [place] [address]Dr. Tadeo Smyth UR MICRO IND INDICATED Normal [facility] Comment on above: Performed By: #### U ACSIND, UMICRO ####[facility] Jovbrbslqx8755 [place] [address]Dr. Tadeo Smyth Urobilinogen Qn (U) 0.2 {Benito'U}/dL Normal 0.2 - 1. 0 [facility] Comment on above: Performed By: #### U ACSBLANE, UMICRO ####[facility] Hecxpywjvi1576 [place] [address]Dr. Tadeo Smyth URINE MICROSCOPIC ONLYon BACTERIA MODERATE Abnormal NONE SEEN [facility] Comment on above: Performed By: #### U ACSBLANE, UMICRO ####[facility] Nfgdgnzrii6490 [place] [address]Dr. Tadeo Smyth Bacteria identified Cx Nom (U) INDICATED Normal [facility] Comment on above: Performed By: #### U ACSBLANE, UMICRO ####[facility] Xdskmkuiht9048 [place] [address]Dr. Tadeo Smyth CAST NONE SEEN Normal NONE SEEN [facility] Comment on above: Performed By: #### U ACSBLANE, UMICRO ####[facility] C[address]uzyhrxx[address] [place], [place] [address]Dr. Tdaeo Smyth Crystals LM Nom (Urine sed) NONE SEEN Normal NONE SEEN [facility] Comment on above: Performed By: #### U ACSBLANE, UMICRO ####[facility] Hawccrxuoi54[address] [place], [place] [address]Dr. Tadeo Smyth Epithelial cells LM Ql (Urine sed) RARE Normal NONE SEEN /RARE [facility] Comment on above: Performed By: #### U ACSBLANE, UMICRO ####[facility] Lkaoeoepep[address] [place], [place] [address]Dr. Tadeo Smyth MUCOUS NONE SEEN Normal NONE SEEN [facility] Comment on above: Performed By: #### U ACSBLANE, UMICRO ####[facility] Ibtdzzpjst3079 [place] [address]Dr. Tadeo Smyth RBC NONE SEEN Abnormal 0-2 [facility] Comment on above: Performed By: #### U ACSBLANE, UMICRO ####[facility] Kunmrlxkoc4750 [place] [address]Dr. Tadeo Smyth WBC 2-5 Abnormal NONE SEEN [facility] Comment on above: Performed By: #### U ACSBLANE, UMICRO ####[facility] Tlxtbetwpf2309 [place] [address]Dr. Tadeo Smyth XR ABD FLAT UP_PA Kasey 03-28 XR ABD FLAT UP_PA CH Normal [facility] CBC AUTO DIFFon 03-27-2022 BASO # 0.0 103/ul Normal 0.0-0.1 [facility] Comment on above: Performed By: #### C BC ####[facility] Zbgmuonxtd1257 [place] [address]Dr. Tadeo Smyth Basophils/100 WBC (Bld) 0.5 % Normal 0.2-2.0 [facility] Comment on above: Performed By: #### C BC ####[facility] Stvvnmwuvs[address] [place], [place] [address]Dr. Tadeo Smyth EO # 0.2 103/ul Normal 0.0-0.7 [facility] Comment on above: Performed By: #### C BC ####[facility] Krbrlprouz97[address] [place], [place] [address]Dr. Tadeo Smyth Eosinophils/100 WBC (Bld) 3.2 % Normal 0.9-7.0 [facility] Comment on above: Performed By: #### C BC ####[facility] Z[address] [place], [place] [address]Dr. Tadeo mSyth Erythrocyte distribution width (RBC) [Ratio] 13.1 % Normal 11.0-15.0 [facility] Comment on above: Performed By: #### C BC ####[facility] Efacjggwte049[address] [place], [place] [address]Dr. Tadeo Smyth Hematocrit (Bld) [Volume fraction] 34.8 % Critically low 36.0-48.0 [facility] Comment on above: Performed By: #### C BC ####[facility] Yeyoxmfnud[address] [place], [place] [address]Dr. Tadeo Smyth Hemoglobin (Bld) [Mass/Vol] 11.3 g/dL Critically low 12.0-16.0 [facility] Comment on above: Performed By: #### C BC ####[facility] Autbapppwq78[address] [place], [place] [address]Dr. Tadeo Smyth IG # 0.01 10e3/ul Normal 0.00-0.03 [facility] Comment on above: Performed By: #### C BC ####[facility] Bosaspusht[address] [place] [address]Dr. Tadeo Smyth IG % 0.2 % Normal 0.0-0.5 [facility] Comment on above: Performed By: #### C BC ####[facility] Zkgswinsus3974 [place] [address]DrNeo Tadeo Haja LYMPH # 1.6 103/ul Normal 1.2-3.8 [facility] Comment on above: Performed By: #### C BC ####[facility] Lrkqmqhjew4447 [place] [address]DrNeo Margotnicole Smyth Lymphocytes/100 WBC (Bld) 29.1 % Normal 20.5-60.0 [facility] Comment on above: Performed By: #### C BC ####[facility] Qrmttrvpfg540[address] [place], [place] [address]DrNeo Tadeo Haja MANUAL DIFF REQ NO Normal [facility] Comment on above: Performed By: #### C BC ####[facility] Pnukdxlnwt1524[address] [place], [place] [address]DrNeo Tadeo Haja MCH (RBC) [Entitic mass] 29.1 pg Normal 26.7-34.0 [facility] Comment on above: Performed By: #### C BC ####[facility] Cwwbuagrci2491 [place] [address]DrNeo Tadeo Haja MCHC (RBC) [Mass/Vol] 32.5 g/dL Normal 29.9-35.2 [facility] Comment on above: Performed By: #### C BC ####[facility] Izhobbjttt[address] [place], [place] [address]DrNeo Smyth MCV (RBC) [Entitic vol] 89.7 fL Normal 81.0-99.0 [facility] Comment on above: Performed By: #### C BC ####[facility] Xzktcrtbvc[address] [place], [place] [address]DrNeo Smyth MONO # 0.3 103/ul Normal 0.3-0.8 [facility] Comment on above: Performed By: #### C BC ####[facility] Kcrxamilhs7193 [place] [address]Dr. Tadeo Smyth Monocytes/100 WBC (Bld) 5.7 % Normal 1.7-12.0 [facility] Comment on above: Performed By: #### C BC ####[facility] Wmanyafrmw9451 [place] [address]Dr. Tadeo Smyth NEUT # 3.5 103/ul Normal 1.4-6.5 [facility] Comment on above: Performed By: #### C BC ####[facility] Vsnzmbpucg1789 [place] [address]Dr. Tadeo Smyth Neutrophils/100 WBC (Bld) 61.3 % Normal 43.0-75.0 [facility] Comment on above: Performed By: #### C BC ####[facility] Xpwzxtazbq6934[address] [place], [place] [address]Dr. Tadeo Smyth Platelet mean volume (Bld) [Entitic vol] 9.1 fL Critically low 9.5-13.5 [facility] Comment on above: Performed By: #### C BC ####[facility] Ebdhmcssuo938[address] [place], [place] [address]Dr. Tadeo Smyth PLT 355 103/ul Normal 150-450 [facility] Comment on above: Performed By: #### C BC ####[facility] Mqdngrcben5871 [place] [address]Dr. Tadeo Smyth RBC 3.88 106/ul Critically low 4.20-5.40 [facility] Comment on above: Performed By: #### C BC ####[facility] Csglykljhl1332 [place] [address]Dr. Tadeo Smyth WBC 5.6 103/ul Normal 4.0-11.0 [facility] Comment on above: Performed By: #### C BC ####[facility] Dkwqjywxrj44[address] [place] [id number]. Tadeo Smyth CT ABD/PELV W CONon 07-23-[address] ABD/PELV W CON Normal [facility] CT ABD/PELVIS WO CONon 03-27 CT ABD/PELVIS WO CON Normal [facility] SARS-CoV-2 (COVID-19) RNA CHEN+probe Ql (Unsp spec) Not detected Normal NOT DETECTED [facility] Comment on above: Result Comment: When [...] for this test is supported by the [place] of Health and Human Service's declaration that [...] be used). Performed By: #### C VDTBH ####[facility] Iqgchfwtul095[address] [place], [place] [address]Dr. Tadeo Smyth ER URINE PROFILEon Bilirubin Ql (U) Negative Normal NEGATIVE [facility] Comment on above: Performed By: #### E SARAH BETHR, PREGU ####[facility] Kyauhvhaoo218[address] [place], [place] [address]Dr. Tadeo Smyth Clarity (U) CLEAR Normal CLEAR [facility] Comment on above: Performed By: #### E SARAH BETHR, PREGU ####[facility] Pwzwiyhris9[address] [place], [place] [address]Dr. Tadeo Smyth Color (U) LT. YELLOW Normal YELLOW [facility] Comment on above: Performed By: #### E RUR, PREGU ####[facility] Ejyzojdyst[address] [place], [place] [address]Dr. Tadeo ENG A micrscopic examina tion will be performed if indicated. Normal [facility] Comment on above: Performed By: #### E RUR, PREGU ####[facility] Vzkcvravnm4910[address] [place], [place] [address]Dr. Tadeo Smyth Glucose Ql (U) Negative Normal NEGATIVE [facility] Comment on above: Performed By: #### E RUR, PREGU ####[facility] Ftgedtqdpt25[address] [place], [place] [address]Dr. Margotnicole Haja Hemoglobin Ql (U) SMALL Abnormal NEGATIVE [facility] Comment on above: Performed By: #### E RUR, PREGU ####[facility] Htfenckafa89[address] [place], [place] [address]Dr. Tadeo Smyth Ketones Ql (U) TRACE Abnormal NEGATIVE [facility] Comment on above: Performed By: #### E RUR, PREGU ####[facility] Dxtnemkbhl388[address] [place], [place] [address]Dr. Tadeo Smyth LEUKOCYTES Negative Normal NEGATIVE [facility] Comment on above: Performed By: #### E RUR, PREGU ####[facility] Ziovtowrbt232[address] [place], [place] [address]Dr. Margotnicole Haja Nitrite Ql (U) Negative Normal NEGATIVE [facility] Comment on above: Performed By: #### E RUR, PREGU ####[facility] Nxxjlucoiq5423[address] [place], [place] [address]Dr. Tadeo Smyth pH (U) 6.0 [pH] Normal 5-9 [facility] Comment on above: Performed By: #### E RUR, PREGU ####[facility] Jpxtczvfey9[address] [place], [place] [address]Dr. Tadeo Smyth SPEC GRAVITY >=1.030 Abnormal 1.005-<=1.0 25 [facility] Comment on above: Performed By: #### E RUR, PREGU ####[facility] Ivqrvlfvwi113[address] [place], [place] [address]Dr. Tadeo Smyth UA PROTEIN Negative Normal NEGATIVE/ TRACE [facility] Comment on above: Performed By: #### E RUR, PREGU ####[facility] Eekszrakvu6382 [place] [address]Dr. Tadeo Smyth UR MICRO IND NOT INDICATED Normal [facility] Comment on above: Performed By: #### E RUR, PREGU ####[facility] Xxkbpmpert7682 [place] [address]Dr. Tadeo Smyth Urobilinogen Qn (U) 0.2 {Benito'U}/dL Normal 0.2 - 1. 0 [facility] Comment on above: Performed By: #### E RUR, PREGU ####[facility] Xiiwmltnjn7222 [place] [address]Dr. Tadeo Smyth LIPASEon 03-27-2022 Lipase [Catalytic activity/Vol] 126.0 U/L Normal 73.0-393.0 [facility] Comment on above: Performed By: #### L IPA, CMP ####[facility] Djoejcifom5423[address] [place], [place] [address]Dr. Tadeo Smyth URon 03-27-2022 , QUAL Negative Normal NEGATIVE [facility] Comment on above: Performed By: #### E RUR, PREGU ####[facility] Fsjommadcy5736[address] [place], [place] [address]Dr. Tadeo Smyth PROF 14(COMP METB)on 022 Albumin [Mass/Vol] 3.6 g/dL Normal 3.4-5.0 [facility] Comment on above: Performed By: #### L IPA, CMP ####[facility] Wvolqfxyyc380[address] [place], [place] [address]Dr. Tadeo Smyth Albumin/Globulin [Mass ratio] 1.1 {ratio} Normal [facility] Comment on above: Performed By: #### L IPA, CMP ####[facility] Xsdbpgcrhg1487[address] [place], [place] [address]Dr. Tadeo Smyth ALP [Catalytic activity/Vol] 139 U/L Critically high 46-116 [facility] Comment on above: Performed By: #### L IPA, CMP ####[facility] Zcljrrwbsk11[address] [place], [place] [address]Dr. Tadeo Smyth ALT [Catalytic activity/Vol] 18 U/L Normal 14-59 [facility] Comment on above: Performed By: #### L IPA, CMP ####[facility] Vwiovvptsl039[address] [place], [place] [address]Dr. Tadeo Smyth Anion gap [Moles/Vol] 10.7 mmol/L Normal [facility] Comment on above: Performed By: #### L IPA, CMP ####[facility] Xecvpljmlj357[address] [place], [place] [address]Dr. Tadeo Smyth AST [Catalytic activity/Vol] 11 U/L Critically low 15-37 [facility] Comment on above: Performed By: #### L IPA, CMP ####[facility] Ajivkurdtf105[address] [place], [place] [address]Dr. Tadeo Smyth Bilirubin [Mass/Vol] 0.2 mg/dL Normal 0.2-1.0 [facility] Comment on above: Performed By: #### L IPA, CMP ####[facility] Dfklqeulie1835[address] [place], [place] [address]Dr. Tadeo Smyth Calcium [Mass/Vol] 9.0 mg/dL Normal 8.5-10.1 [facility] Comment on above: Performed By: #### L IPA, CMP ####[facility] Oqlphjxhtp42[address] [place], [place] [address]Dr. Tadeo Smyth Chloride [Moles/Vol] 106 mmol/L Normal 98-107 [facility] Comment on above: Performed By: #### L IPA, CMP ####[facility] Cfcbkxalma712[address] [place], [place] [address]Dr. Tadeo Smyth CO2 [Moles/Vol] 26.9 mmol/L Normal 21.0-32.0 [facility] Comment on above: Performed By: #### L IPA, CMP ####[facility] Nepezymcdm736[address] [place], [place] [address]Dr. Tadeo Smyth Creatinine [Mass/Vol] 0.84 mg/dL Normal 0.55-1.02 [facility] Comment on above: Performed By: #### L IPA, CMP ####[facility] Pdgtabaium529[address] [place], [place] [address]Dr. Tadeo Haja EGFR-AF HAITIAN >60 Normal >=60 [facility] Comment on above: Performed By: #### L IPA, CMP ####[facility] Dqhifjjwai32[address] [place] [phone]. Tadeo Haja EGFR-NON AF HAITIAN >60 Normal >=60 [facility] Comment on above: Performed By: #### L IPA, CMP ####[facility] Vacujvxaxi4083 [place] [phone]. Tadeo Smyth Globulin (S) [Mass/Vol] 3.4 g/dL Normal [facility] Comment on above: Performed By: #### L IPA, CMP ####[facility] Agtkuwprnx849[address] [place], [place] [address]Dr. Tadeo Smyth Glucose [Mass/Vol] 96 mg/dL Normal 74-106 [facility] Comment on above: Performed By: #### L IPA, CMP ####[facility] Vmdtyckpcp307[address] [place], [place] [address]Dr. Tadeo Smyth Potassium [Moles/Vol] 3.6 mmol/L Normal 3.5-5.1 [facility] Comment on above: Performed By: #### L IPA, CMP ####[facility] Qlzyfetwjn0455[address] [place], [place] [address]Dr. Tadeo Smyth Protein [Mass/Vol] 7.0 g/dL Normal 6.4-8.2 [facility] Comment on above: Performed By: #### L IPA, CMP ####[facility] Ezurwofbvw8787[address] [place], [place] [address]Dr. Tadeo Smyth Sodium [Moles/Vol] 140 mmol/L Normal 136-145 [facility] Comment on above: Performed By: #### L IPA, CMP ####[facility] Ywugkrfjeh2972 [place] [address]Dr. Tadeo Smyth Urea nitrogen [Mass/Vol] 23.0 mg/dL Critically high 7.0-18.0 [facility] Comment on above: Performed By: #### L IPA, CMP ####[facility] Jwaoqmukbj5900[address] [place], [place] [address]Dr. Tadeo Smyth Urea nitrogen/Creatinine [Mass ratio] 27.4 mg/mg Normal [facility] Comment on above: Performed By: #### L IPA, CMP ####[facility] Zrkfxxgdtq176[address] [place], [place] [address]Dr. Tadeo Smyth GROUP A STREP CULTUREon 06-0 S. pyogenes Ag Ql (Unsp spec) Normal [facility] Comment on above: Performed By: #### G RASTCX, SSCRN ####[facility] Eugvhnvque466[address] [place], [place] [address]Dr. Tadeo Smyth AMYLASEon 02-02-2022 Amylase [Catalytic activity/Vol] 37 U/L Normal 25-115 [facility] Comment on above: Performed By: #### C MP, VIJI, LIPA ####[facility] Svczkglqwq36[address] [place], [place] [address]Dr. Tadeo Smyth CBC AUTO DIFFon 02-02-2022 BASO # 0.0 103/ul Normal 0.0-0.1 [facility] Comment on above: Performed By: #### C BC ####[facility] Qrcepcuhyu05[address] [place], [place] [address]Dr. Tadeo Smyth Basophils/100 WBC (Bld) 0.2 % Normal 0.2-2.0 [facility] Comment on above: Performed By: #### C BC ####[facility] Jmzeqxpntf716[address] [place], [place] [address]Dr. Tadeo Smyth EO # 0.0 103/ul Normal 0.0-0.7 [facility] Comment on above: Performed By: #### C BC ####[facility] Iwfbqufpfl713[address] [place], [place] [address]Dr. Tadeo Smyth Eosinophils/100 WBC (Bld) 0.2 % Critically low 0.9-7.0 [facility] Comment on above: Performed By: #### C BC ####[facility] Olikqyjjxf084[address] [place], [place] [address]Dr. Tadeo Smyth Erythrocyte distribution width (RBC) [Ratio] 13.4 % Normal 11.0-15.0 [facility] Comment on above: Performed By: #### C BC ####[facility] Osmvpwmdln3042 [place] [address]Dr. Tadeo Smyth Hematocrit (Bld) [Volume fraction] 36.8 % Normal 36.0-48.0 [facility] Comment on above: Performed By: #### C BC ####[facility] Jofeiavxah5484 [place] [address]Dr. Tadeo Smyth Hemoglobin (Bld) [Mass/Vol] 11.6 g/dL Critically low 12.0-16.0 [facility] Comment on above: Performed By: #### C BC ####[facility] Etiyatyhlo1669[address] [place], [place] [address]Dr. Tadeo Smyth IG # 0.08 10e3/ul Critically high 0.00-0.03 [facility] Comment on above: Performed By: #### C BC ####[facility] Acrlfukzcr3825[address] [place], [place] [address]DrNeo Tadeo Smyth IG % 0.6 % Critically high 0.0-0.5 [facility] Comment on above: Performed By: #### C BC ####[facility] Yucmwrwnzu[address] [place], [place] [address]DrNeo Tadeo Smyth LYMPH # 0.9 103/ul Critically low 1.2-3.8 [facility] Comment on above: Performed By: #### C BC ####[facility] Btqpvassee64[address] [place], [place] [address]DrNeo Tadeo Smyth Lymphocytes/100 WBC (Bld) 6.9 % Critically low 20.5-60.0 [facility] Comment on above: Performed By: #### C BC ####[facility] Khsuoeaukh14[address] [place], [place] [address]DrNeo Tadeo Smyth MANUAL DIFF REQ NO Normal [facility] Comment on above: Performed By: #### C BC ####[facility] Bivuyxbfka77[address] [place], [place] [address]DrNeo Tadeo Smyth MCH (RBC) [Entitic mass] 28.9 pg Normal 26.7-34.0 [facility] Comment on above: Performed By: #### C BC ####[facility] Lkiwsdopjf5514 [place] [id number]. Tadeo Haja MCHC (RBC) [Mass/Vol] 31.5 g/dL Normal 29.9-35.2 [facility] Comment on above: Performed By: #### C BC ####[facility] Eoiwbwslls3616 [place] [phone] Smyth MCV (RBC) [Entitic vol] 91.8 fL Normal 81.0-99.0 [facility] Comment on above: Performed By: #### C BC ####[facility] Mmgclpurae3267 [place] [phone]. Tadeo Smyth MONO # 0.9 103/ul Critically high 0.3-0.8 [facility] Comment on above: Performed By: #### C BC ####[facility] Ainbxvpjbx1287 [place] [address]Dr. Tadeo Smyth Monocytes/100 WBC (Bld) 6.9 % Normal 1.7-12.0 [facility] Comment on above: Performed By: #### C BC ####[facility] Ikrhkjvufj[address] [place], [place] [address]Dr. Tadeo Smyth NEUT # 11.6 103/ul Critically high 1.4-6.5 [facility] Comment on above: Performed By: #### C BC ####[facility] Stbstsygan[address] [place], [place] [address]DrNeo Smyth Neutrophils/100 WBC (Bld) 85.2 % Critically high 43.0-75.0 [facility] Comment on above: Performed By: #### C BC ####[facility] Pmncllgqwb2424 [place] [phone] Smyth Platelet mean volume (Bld) [Entitic vol] 8.9 fL Critically low 9.5-13.5 [facility] Comment on above: Performed By: #### C BC ####[facility] Uwzpneiltq5952 [place] [phone] Smyth PLT 331 103/ul Normal 150-450 [facility] Comment on above: Performed By: #### C BC ####[facility] B[address]hlrmknkr7585 [place], [place] [address]Al. Tadeo Smyth RBC 4.01 106/ul Critically low 4.20-5.40 [facility] Comment on above: Performed By: #### C BC ####[facility] Qpqatukgof9867 [place], [place] [address]On. Tadeo Smyth WBC 13.7 103/ul Critically high 4.0-11.0 [facility] Comment on above: Performed By: #### C BC ####[facility] Mmyprllsjm7406 [place], [place] [address]Gq. Tadeo Smyth Covid-19 PCR ([facility])on 01-05 SARS-CoV-2 (COVID-19) RNA CHEN+probe Ql (Unsp spec) Not detected Normal NOT DETECTED [facility] Comment on above: Result Comment: When [...] for this test is supported by the [place] of Health and Human Service's declaration that [...] be used). Performed By: #### C VDTBH ####[facility] Ufasmaaslo5063 [place], [place] [address]Nu. Tadeo Smyth LIPASEon 02-02-2022 Lipase [Catalytic activity/Vol] 33.0 U/L Critically low 73.0-393.0 [facility] Comment on above: Performed By: #### C VIJI GARCIA, LIPA ####[facility] Cyriavyxpb7349 [place] [address]Dr. Tadeo Smyth MONOon 02-02-2022 Monocytes (Bld) [#/Vol] Negative Normal NEGATIVE [facility] Comment on above: Performed By: #### M JESSICA ####[facility] Nvpmkijccw4702 [place] [address]Dr. Tadeo Smyth PROF 14(COMP METB)on 022 Albumin [Mass/Vol] 3.1 g/dL Critically low 3.4-5.0 [facility] Comment on above: Performed By: #### C MP, VIJI, LIPA ####[facility] Trsbctmtew1439 [place] [address]Dr. Tadeo Smyth Albumin/Globulin [Mass ratio] 0.9 {ratio} Normal [facility] Comment on above: Performed By: #### C MP, VIJI, LIPA ####[facility] Oyjbuwtxri0612 [place] [address]Dr. Tadeo Smyth ALP [Catalytic activity/Vol] 131 U/L Critically high 46-116 [facility] Comment on above: Performed By: #### C MP, VIJI, LIPA ####[facility] Jsenepqbed6387 [place] [address]Dr. Tadeo Smyth ALT [Catalytic activity/Vol] 25 U/L Normal 14-59 [facility] Comment on above: Performed By: #### C MP, VIJI, LIPA ####[facility] Uwbcqglhka1259 [place] [address]Dr. Tadeo Smyth Anion gap [Moles/Vol] 10.0 mmol/L Normal [facility] Comment on above: Performed By: #### C MP, VIJI, LIPA ####[facility] Xeacprkxyf2040 [place] [address]Dr. Tadeo Smyth AST [Catalytic activity/Vol] 19 U/L Normal 15-37 [facility] Comment on above: Performed By: #### C MP, VIJI, LIPA ####[facility] Vssvyiexdj8666 [place] [address]Dr. Tadeo Smyth Bilirubin [Mass/Vol] 0.6 mg/dL Normal 0.2-1.0 [facility] Comment on above: Performed By: #### C VIJI GARCIA LIPA ####[facility] Dlxwlvcflg1104 [place] [address]Dr. Tadeo Smyth Calcium [Mass/Vol] 8.2 mg/dL Critically low 8.5-10.1 [facility] Comment on above: Performed By: #### C JOSE VIJI, LIPA ####[facility] Aiatnntyqe2589 [place] [address]Dr. Tadeo Smyth Chloride [Moles/Vol] 106 mmol/L Normal 98-107 [facility] Comment on above: Performed By: #### C VIJI GARCIA LIPA ####[facility] Hnbpleisrv1906 [place] [address]Dr. Tadeo Smyth CO2 [Moles/Vol] 25.5 mmol/L Normal 21.0-32.0 [facility] Comment on above: Performed By: #### C JOSE VIJI, LIPA ####[facility] Oinntgzsgj4422 [place] [address]Dr. Tadeo Smyth Creatinine [Mass/Vol] 0.78 mg/dL Normal 0.55-1.02 [facility] Comment on above: Performed By: #### C VIJI GARCIA, LIPA ####[facility] Cdwuxlfgwv5093 [place] [address]Dr. Tadeo Smyth EGFR-AF HAITIAN >60 Normal >=60 [facility] Comment on above: Performed By: #### C JOSE VIJI, LIPA ####[facility] Stoepzguhb4[address] [place] [address]Dr. Tadeo Smyth EGFR-NON AF HAITIAN >60 Normal >=60 [facility] Comment on above: Performed By: #### C JOSE VIJI, LIPA ####[facility] Lxlsxmzshv8238 [place] [address]Dr. Tadeo Smyth Globulin (S) [Mass/Vol] 3.6 g/dL Normal [facility] Comment on above: Performed By: #### C JOSE VIJI, LIPA ####[facility] Vxcrqpjqcz4349 [place] [address]Dr. Tadeo Smyth Glucose [Mass/Vol] 110 mg/dL Critically high 74-106 [facility] Comment on above: Performed By: #### C MP, VIJI, LIPA ####[facility] Plgeuhwrgt3317 [place] [address]Dr. Tadeo Smyth Potassium [Moles/Vol] 3.5 mmol/L Normal 3.5-5.1 [facility] Comment on above: Performed By: #### C MP, VIJI, LIPA ####[facility] Uqqdffeqst9640 [place] [address]Dr. Tadeo Smyth Protein [Mass/Vol] 6.7 g/dL Normal 6.4-8.2 [facility] Comment on above: Performed By: #### C MP, VIJI, LIPA ####[facility] Mxglfvpjec1062 [place] [address]Dr. Tadeo Smyth Sodium [Moles/Vol] 138 mmol/L Normal 136-145 [facility] Comment on above: Performed By: #### C MP, VIJI, LIPA ####[facility] Gomrbikmwc[address] [place] [address]Dr. Tadeo Smyth Urea nitrogen [Mass/Vol] 11.0 mg/dL Normal 7.0-18.0 [facility] Comment on above: Performed By: #### C MP, VIJI, LIPA ####[facility] Cfmvlfyvdt4708 [place] [address]Dr. Tadeo Smyth Urea nitrogen/Creatinine [Mass ratio] 14.1 mg/mg Normal [facility] Comment on above: Performed By: #### C MP, VIJI, LIPA ####[facility] Emlrcfghrn5572 [place] [address]Dr. Tadeo Smyth STREPT SCREENon 02-02-2022 STREP SCREEN A Negative Normal NEGATIVE [facility] Comment on above: Performed By: #### G RASTCX, SSCRN ####[facility] Lrfpjglcvo84[address] [place] [address]Dr. Tadeo Smyth BASIC METABOLIC PANELon 08-05 Calcium [Mass/Vol] 8.4 mg/dL Low 8.6-10.3 [facility] Comment on above: Order Comment: No: D o not add to previous draw Performed By: #### 3 590, [address] #### [facility] [address] [place] [address], [place] Chloride [Moles/Vol] 108 mmol/L High 98-107 [facility] Comment on above: Order Comment: No: D o not add to previous draw Performed By: #### 3 801, 26996 #### [facility] [address] [place] [address], [place] CO2 [Moles/Vol] 26 mmol/L Normal 21-31 [facility] Comment on above: Order Comment: No: D o not add to previous draw Performed By: #### 3 163, 07746 #### [facility] [address] [place] [address], [place] Creatinine [Mass/Vol] 0.79 mg/dL Normal 0.60-1.20 [facility] Comment on above: Order Comment: No: D o not add to previous draw Performed By: #### 3 654, 70130 #### [facility] [address] [place] [address], [place] GFR/1.73 sq M predicted among blacks MDRD (S/P/Bld) [Vol rate/Area] mL/min/{1.73_m2} Normal >60 [facility] Comment on above: Order Comment: No: D o not add to previous draw Performed By: #### 3 048, 59078 #### [facility] [address] [place] [address], [place] GFR/1.73 sq M predicted among non-blacks MDRD (S/P/Bld) [Vol rate/Area] mL/min/{1.73_m2} Normal >60 [facility] Comment on above: Order Comment: No: D o not add to previous draw Performed By: #### 3 091, 53468 #### [facility] [address] [place] [address], [place] Glucose [Mass/Vol] 98 mg/dL Normal 70-100 [facility] Comment on above: Order Comment: No: D o not add to previous draw Performed By: #### 3 690, 88020 #### [facility] [address] [place] [address], [place] Potassium [Moles/Vol] 3.5 mmol/L Normal 3.5-5.1 [facility] Comment on above: Order Comment: No: D o not add to previous draw Performed By: #### 3 6900, 79765 #### [facility] [address] [place] [address], [place] Sodium [Moles/Vol] 139 mmol/L Normal 136-145 [facility] Comment on above: Order Comment: No: D o not add to previous draw Performed By: #### 3 6900, 71736 #### [facility] [address] [place] [address], [place] Urea nitrogen [Mass/Vol] 11 mg/dL Normal 7-25 [facility] Comment on above: Order Comment: No: D o not add to previous draw Performed By: #### 3 690, 78637 #### [facility] [address] [place] [address], [place] BLOOD STOOL GUAIACon 019 BLD STOOL GUAIAC Negative Normal NEGATIVE [facility] Comment on above: Order Comment: No: D o not add to previous draw Performed By: #### 3 690, 05573 #### [facility] [address] [place] [address], [place] MAGNESIUM BLOODon 08-16-2019 Magnesium [Mass/Vol] 2.0 mg/dL Normal 1.9-2.7 [facility] Comment on above: Order Comment: No: D o not add to previous draw Performed By: #### 3 563, 39964 #### [facility] [address] [facility]. [address] *URINE CULTUREon 08-15-2019 Bacteria identified Cx Nom (U) Clinical Report: (D) Specimen/Source: URINE/MIDSTREAM Collected: 08/15/2019 20:40 Status: Final Last Updated: 08/17/2019 08:05 ISO (Final) Escherichia coli >100,000 Cfu/Ml ISOLATE: Escherichia coli RHONDA (mcg/ml) AMP./SULBAC (AMS) 16/8 Intermediate AMPICILLIN (AM) >16 Resistant AZTREONAM (AZM) <=1 Susceptible CEFAZOLIN (CZ) 2 Susceptible CEFTRIAXONE (BUILDING MECHANIC) <=0.5 Susceptible CIPROFLOXACIN (CIP) >2 Resistant ESBL (-/+) (ESBL) Negative GENTAMICIN (GM) <=1 Susceptible NITROFURANTOIN (FT) <=16 Susceptible PIP/TAZO (TZP) 4/4 Susceptible TOBRAMYCIN (TOB) 1 Susceptible TRIMETH/SULFA (SXT) >2/38 Resistant Normal [facility] Comment on above: Performed By: #### 3 6901, 49321 #### [facility] [address] BASIC METABOLIC PANELon 08-05 Calcium [Mass/Vol] 8.8 mg/dL Normal 8.6-10.3 [facility] Comment on above: Order Comment: No: D o not add to previous draw Performed By: #### 0 0071, 34959, 52768 #### [facility] [address] [place] [address], [facility] Chloride [Moles/Vol] 107 mmol/L Normal 98-107 [facility] Comment on above: Order Comment: No: D o not add to previous draw Performed By: #### 0 0071, 61284, 38688 #### [facility] [address] [place] [address], [facility] CO2 [Moles/Vol] 27 mmol/L Normal 21-31 [facility] Comment on above: Order Comment: No: D o not add to previous draw Performed By: #### 0 0071, 14653, 22093 #### [facility] [address] [place] [address], [place] Creatinine [Mass/Vol] 0.99 mg/dL Normal 0.60-1.20 [facility] Comment on above: Order Comment: No: D o not add to previous draw Performed By: #### 0 0071, 97433, 02064 #### [facility] [address] [place] [address], [place] GFR/1.73 sq M predicted among blacks MDRD (S/P/Bld) [Vol rate/Area] mL/min/{1.73_m2} Normal >60 [facility] Comment on above: Order Comment: No: D o not add to previous draw Performed By: #### 0 0071, 45183, 79359 #### [facility] [address] [place] [address], [place] GFR/1.73 sq M predicted among non-blacks MDRD (S/P/Bld) [Vol rate/Area] 59 ml/min/1.73sq m Abnormal >60 [facility] Comment on above: Order Comment: No: D o not add to previous draw Performed By: #### 0 0071, 48849, 05873 #### [facility] [address] [place] [address], [place] Glucose [Mass/Vol] 100 mg/dL Normal 70-100 [facility] Comment on above: Order Comment: No: D o not add to previous draw Performed By: #### 0 0071, 69469, 21806 #### [facility] [address] [place] [address], [place] Potassium [Moles/Vol] 3.6 mmol/L Normal 3.5-5.1 [facility] Comment on above: Order Comment: No: D o not add to previous draw Performed By: #### 0 0071, 86728, 87126 #### [facility] [address] [place] [address], [facility] Sodium [Moles/Vol] 140 mmol/L Normal 136-145 [facility] Comment on above: Order Comment: No: D o not add to previous draw Performed By: #### 0 0071, 68800, 52849 #### [facility] [address] [place] [address], [facility] Urea nitrogen [Mass/Vol] 9 mg/dL Normal 7-25 [facility] Comment on above: Order Comment: No: D o not add to previous draw Performed By: #### 0 0071, 98234, 91572 #### [facility] [address] [place] [address], [facility] LACTATE BLOODon 08-15-2019 Lactate [Moles/Vol] 0.8 mmol/L Normal 0.5-2.2 [facility] Comment on above: Order Comment: Yes: Add to Previous draw if able Performed By: #### 1 0054 #### [facility] [address] LMWH HEPARIN ASSAYon 019 LOW MOLECULAR WEIGHT HEPARIN 0.32 IU/mL Low 0.60-1.20 [facility] Comment on above: Order Comment: [...] and LMWH. Performed By: #### 3 6901, 07604 #### [facility] [address] [facility] [place] [address], [facility] MAGNESIUM BLOODon 08-15-2019 Magnesium [Mass/Vol] 1.7 mg/dL Low 1.9-2.7 [facility] Comment on above: Order Comment: No: D o not add to previous draw Performed By: #### 0 0071, 05653, 57885 #### [facility] [address] [place] [address], [facility] PHOSPHORUS BLOODon 9 Phosphate [Mass/Vol] 4.1 mg/dL Normal 2.5-5.0 [facility] Comment on above: Order Comment: No: D o not add to previous draw Performed By: #### 0 0071, 00616, 00403 #### [facility] [address] UGI WITH SMALL BOWELon 08-15 UGI WITH SMALL BOWEL [facility] Department of Radiology [address] [place] [id number] Patient Name: CONSTANTINO CARDOSO : 1970 Sex: F Age: Race: White Pt. Location: [id number] Patient Status: O Ordered Date: 08/15/2019 10:45:00 [...] ischemia. Electronically signed by:Orestes Condon. Transcribed by: [email or web address], User Resident: Electronically Signed by: ORESTES CONDON @ 08/15/2019 04:13 PM Normal [facility] Comment on above: Order Comment: R/O O bstruction URINALYSIS REFLEXon 08-15-20 19 Appearance (U) SL CLOUDY Abnormal CLEAR [facility] Comment on above: Order Comment: No: D o not add to previous drawCriteria for reflexing a culture was met. Urine Culture and sensitivitywill be performed. Performed By: #### 3 0416, 59473 #### [facility] [address] [place] [address], [facility] Bilirubin [Mass/Vol] Negative Normal NEGATIVE [facility] Comment on above: Order Comment: No: D o not add to previous drawCriteria for reflexing a culture was met. Urine Culture and sensitivitywill be performed. Performed By: #### 3 6900, 72000 #### [facility] [address] [place] [address], [facility] BLOOD SMALL Abnormal NEGATIVE [facility] Comment on above: Order Comment: No: D o not add to previous drawCriteria for reflexing a culture was met. Urine Culture and sensitivitywill be performed. Performed By: #### 3 6900, 06408 #### [facility] [address] [place] [address], [facility] Color (U) YELLOW Normal YELLOW [facility] Comment on above: Order Comment: No: D o not add to previous drawCriteria for reflexing a culture was met. Urine Culture and sensitivitywill be performed. Performed By: #### 3 6900, 11724 #### [facility] [address] [place] [address], [facility] EPIS OCC Normal FEW,OCC,NON E SEEN [facility] Comment on above: Order Comment: No: D o not add to previous drawCriteria for reflexing a culture was met. Urine Culture and sensitivitywill be performed. Performed By: #### 3 839, 31690 #### [facility] [address] [place] [address], [facility] Glucose [Mass/Vol] Negative Normal NEGATIVE [facility] Comment on above: Order Comment: No: D o not add to previous drawCriteria for reflexing a culture was met. Urine Culture and sensitivitywill be performed. Performed By: #### 3 629, 27120 #### [facility] [address] [place] [address], [facility] HYALINE CASTS 6-10 Abnormal NONE SEEN [facility] Comment on above: Order Comment: No: D o not add to previous drawCriteria for reflexing a culture was met. Urine Culture and sensitivitywill be performed. Performed By: #### 3 982, 11346 #### [facility] [address] [place] [address], [facility] KETONE Negative Normal NEGATIVE [facility] Comment on above: Order Comment: No: D o not add to previous drawCriteria for reflexing a culture was met. Urine Culture and sensitivitywill be performed. Performed By: #### 3 2951, 41320 #### [facility] [address] [place] [address], [place] LEUK JONN MODERATE Abnormal NEGATIVE [facility] Comment on above: Order Comment: No: D o not add to previous drawCriteria for reflexing a culture was met. Urine Culture and sensitivitywill be performed. Performed By: #### 3 8281, 37203 #### [facility] [address] [place] [address], [facility] MUCUS THREADS FEW Abnormal NONE SEEN [facility] Comment on above: Order Comment: No: D o not add to previous drawCriteria for reflexing a culture was met. Urine Culture and sensitivitywill be performed. Performed By: #### 3 914, 54569 #### [facility] [address] [place] [address], [facility] Nitrite Ql (U) Negative Normal NEGATIVE [facility] Comment on above: Order Comment: No: D o not add to previous drawCriteria for reflexing a culture was met. Urine Culture and sensitivitywill be performed. Performed By: #### 3 2041, 57241 #### [facility] [address] [place] [address], [facility] pH (Bld) 5.0 Normal 5.0-8.0 [facility] Comment on above: Order Comment: No: D o not add to previous drawCriteria for reflexing a culture was met. Urine Culture and sensitivitywill be performed. Performed By: #### 3 9121, 51979 #### [facility] [address] [place] [address], [place] Protein (U) [Mass/Vol] Negative Normal NEGATIVE [facility] Comment on above: Order Comment: No: D o not add to previous drawCriteria for reflexing a culture was met. Urine Culture and sensitivitywill be performed. Performed By: #### 3 6901, 27467 #### [facility] [address] [facility]. [address] RBC (U) [#/Vol] 6-10 Abnormal NONE SEEN [facility] Comment on above: Order Comment: No: D o not add to previous drawCriteria for reflexing a culture was met. Urine Culture and sensitivitywill be performed. Performed By: #### 3 6901, 81424 #### [facility] [address] SPEC GRAV 1.025 High 1.015-1.020 [facility] Comment on above: Order Comment: No: D o not add to previous drawCriteria for reflexing a culture was met. Urine Culture and sensitivitywill be performed. Performed By: #### 3 6901, 09389 #### [facility] [address] [facility]. [address] WBC UA 51-100 Abnormal NONE SEEN [facility] Comment on above: Order Comment: No: D o not add to previous drawCriteria for reflexing a culture was met. Urine Culture and sensitivitywill be performed. Performed By: #### 3 6901, 80051 #### [facility] [address] [facility]. [address] CBC COMPLETE BLOOD COUNTon 1 10-15-2018 Erythrocyte distribution width (RBC) [Ratio] 12.7 % Normal 11.5-15.0 [facility] Comment on above: Order Comment: No: D o not add to previous draw Performed By: #### 5 0608 #### [facility] [address] [facility]. [address] Hematocrit (Bld) [Volume fraction] 31.2 % Low 36.0-45.0 [facility] Comment on above: Order Comment: No: D o not add to previous draw Performed By: #### 5 0608 #### [facility] [address] [place] [address], [facility] Hemoglobin (Bld) [Mass/Vol] 9.8 g/dL Low 12.0-15.0 [facility] Comment on above: Order Comment: No: D o not add to previous draw Performed By: #### 5 0608 #### [facility] [address] [place] [id number], [facility] MCH (RBC) [Entitic mass] 29.1 pg Normal 27.0-33.0 [facility] Comment on above: Order Comment: No: D o not add to previous draw Performed By: #### 5 0608 #### [facility] [address] [place] [address], [facility] MCHC (RBC) [Mass/Vol] 31.4 g/dL Low 32.0-35.0 [facility] Comment on above: Order Comment: No: D o not add to previous draw Performed By: #### 5 0608 #### [facility] [address] [place] [address], [facility] MCV (RBC) [Entitic vol] 92.6 fL Normal 82.0-98.0 [facility] Comment on above: Order Comment: No: D o not add to previous draw Performed By: #### 5 0608 #### [facility] [address] [place] [address], [facility] Nucleated RBC/100 WBC (Bld) [Ratio] 0 % Normal 0-0 [facility] Comment on above: Order Comment: No: D o not add to previous draw Performed By: #### 5 0608 #### [facility] [address] [facility] [address], [facility] PLAT CNT 340 10*3/uL Normal 150-400 [facility] Comment on above: Order Comment: No: D o not add to previous draw Performed By: #### 5 0608 #### [facility] [address] RBC (Bld) [#/Vol] 3.37 10*6/uL Low 3.80-5.00 [facility] Comment on above: Order Comment: No: D o not add to previous draw Performed By: #### 5 0608 #### [facility] [address] [place] [address], [facility] WBC (Bld) [#/Vol] 6.04 10*3/uL Normal 4.00-10.60 [facility] Comment on above: Order Comment: No: D o not add to previous draw Performed By: #### 5 0608 #### [facility] [address] [facility]. [address] PROTHROMBIN TIMEon 12-10-201 9 INR Coag (PPP) [Relative time] 1.09 {INR} Normal 0.91-1.16 [facility] Comment on above: Order Comment: [...] 1995;108:[id number]-246S. Performed By: #### 5 6101 #### [facility] [place] [address], [facility] PT Coag (PPP) [Time] 14.1 s Normal 12.3-14.8 [facility] Comment on above: Order Comment: No: D o not add to previous draw Result Comment: ALL RESULTS MUST BE INTERPRETED WITH RESPECT TO BLOOD DRAWING ARTIFACT OR DILUTION ERROR OF ANTICOAGULANT AT THE TIME OF SAMPLING. Performed By: #### 5 6101 #### [address] [address], [facility] LIVER 08-14-2019 [facility] Department of Radiology [address] [place] [id number] Patient Name: CONSTANTINO CARDOSO : 1970 Sex: F Age: Race: White Pt. Location: [id number] Patient Status: O Ordered Date: 08/13/2019 8:30:00 [...] cholecystectomy. Electronically signed by:Orestes Condon. Transcribed by: [email or web address], User Resident: Electronically Signed by: ORESTES CONDON @ 08/14/2019 02:09 PM Normal [facility] Comment on above: Order Comment: R/O S tones BASIC METABOLIC PANELon 12-0 Calcium [Mass/Vol] 9.4 mg/dL Normal 8.6-10.3 [facility] Comment on above: Order Comment: No: D o not add to previous draw Performed By: #### 3 361, 89318 #### [facility] [address] [place] [address], [place] Chloride [Moles/Vol] 105 mmol/L Normal 98-107 [facility] Comment on above: Order Comment: No: D o not add to previous draw Performed By: #### 3 652, 76388 #### [facility] [address] [place] [address], [place] CO2 [Moles/Vol] 26 mmol/L Normal 21-31 [facility] Comment on above: Order Comment: No: D o not add to previous draw Performed By: #### 3 419, 18500 #### [facility] [address] [place] [address], [place] Creatinine [Mass/Vol] 1.03 mg/dL Normal 0.60-1.20 [facility] Comment on above: Order Comment: No: D o not add to previous draw Performed By: #### 3 118, 41650 #### [facility] [address] [place] [address], [place] GFR/1.73 sq M predicted among blacks MDRD (S/P/Bld) [Vol rate/Area] mL/min/{1.73_m2} Normal >60 [facility] Comment on above: Order Comment: No: D o not add to previous draw Performed By: #### 3 285, 05720 #### [facility] [address] [place] [address], [place] GFR/1.73 sq M predicted among non-blacks MDRD (S/P/Bld) [Vol rate/Area] 57 ml/min/1.73sq m Abnormal >60 [facility] Comment on above: Order Comment: No: D o not add to previous draw Performed By: #### 3 952, 23198 #### [facility] [address] [place] [address], [place] Glucose [Mass/Vol] 96 mg/dL Normal 70-100 [facility] Comment on above: Order Comment: No: D o not add to previous draw Performed By: #### 3 000, 43139 #### [facility] [address] [place] [address], [place] Potassium [Moles/Vol] 4.1 mmol/L Normal 3.5-5.1 [facility] Comment on above: Order Comment: No: D o not add to previous draw Performed By: #### 3 353, 97677 #### [facility] [address] [place] [address], [place] Sodium [Moles/Vol] 138 mmol/L Normal 136-145 [facility] Comment on above: Order Comment: No: D o not add to previous draw Performed By: #### 3 875, 67996 #### [facility] [address] [place] [address], [place] Urea nitrogen [Mass/Vol] 16 mg/dL Normal 7-25 [facility] Comment on above: Order Comment: No: D o not add to previous draw Performed By: #### 3 063, 32770 #### [facility] [address] CBC W/DIFFon 08-13-2019 ABS BASOPHILS 0.0 10*3/uL Normal 0.0-0.2 [facility] Comment on above: Order Comment: No: D o not add to previous draw Performed By: #### 5 0103 #### [facility] [address] [place] [address], [facility] ABS IMM GRANS 0.0 10*3/uL Normal 0.0-0.2 [facility] Comment on above: Order Comment: No: D o not add to previous draw Performed By: #### 5 0103 #### [facility] [address] [facility]. [address] ABS NEUTROPHILS 4.0 10*3/uL Normal 1.6-7.6 [facility] Comment on above: Order Comment: No: D o not add to previous draw Performed By: #### 5 0103 #### [facility] [address] [facility]. [address] Basophils/100 WBC (Bld) 0.5 % Normal 0.0-1.0 [facility] Comment on above: Order Comment: No: D o not add to previous draw Performed By: #### 5 0103 #### [facility] [address] [place] [address], [facility] Eosinophils (Bld) [#/Vol] 0.2 10*3/uL Normal 0.0-0.5 [facility] Comment on above: Order Comment: No: D o not add to previous draw Performed By: #### 5 0103 #### [facility] [address] [facility] [place] [address], [facility] Eosinophils/100 WBC (Bld) 3.3 % Normal 0.0-6.0 [facility] Comment on above: Order Comment: No: D o not add to previous draw Performed By: #### 5 0103 #### [facility] [address] [facility] [address], [facility] Erythrocyte distribution width (RBC) [Ratio] 12.7 % Normal 11.5-15.0 [facility] Comment on above: Order Comment: No: D o not add to previous draw Performed By: #### 5 0103 #### [facility] [address] [place] [address], [facility] Hematocrit (Bld) [Volume fraction] 33.4 % Low 36.0-45.0 [facility] Comment on above: Order Comment: No: D o not add to previous draw Performed By: #### 5 0103 #### [facility] [address] [place] [address], [facility] Hemoglobin (Bld) [Mass/Vol] 10.5 g/dL Low 12.0-15.0 [facility] Comment on above: Order Comment: No: D o not add to previous draw Performed By: #### 5 0103 #### [facility] [address] [place] [address], [facility] IMMATURE GRANS 0.2 % Normal 0.0-1.0 [facility] Comment on above: Order Comment: No: D o not add to previous draw Performed By: #### 5 0103 #### [facility] [address] [facility] [address], [facility] Lymphocytes (Bld) [#/Vol] 1.8 10*3/uL Normal 1.2-4.0 [facility] Comment on above: Order Comment: No: D o not add to previous draw Performed By: #### 5 0103 #### [facility] [address] [place] [address], [facility] Lymphocytes/100 WBC (Bld) 28.2 % Normal 20.0-45.0 [facility] Comment on above: Order Comment: No: D o not add to previous draw Performed By: #### [id number] #### [facility] [address] [place] [address], [facility] MCH (RBC) [Entitic mass] 28.9 pg Normal 27.0-33.0 [facility] Comment on above: Order Comment: No: D o not add to previous draw Performed By: #### [id number] #### [facility] [address] [place] [address], [facility] MCHC (RBC) [Mass/Vol] 31.4 g/dL Low 32.0-35.0 [facility] Comment on above: Order Comment: No: D o not add to previous draw Performed By: #### [id number] #### [facility] [address] [place] [id number], [facility] MCV (RBC) [Entitic vol] 92.0 fL Normal 82.0-98.0 [facility] Comment on above: Order Comment: No: D o not add to previous draw Performed By: #### [id number] #### [facility] [address] [place] [id number], [facility] Monocytes (Bld) [#/Vol] 0.4 10*3/uL Normal 0.1-1.0 [facility] Comment on above: Order Comment: No: D o not add to previous draw Performed By: #### [id number] #### [facility] [address] [place] [id number], [facility] MONOS 6.2 % Normal 5.0-12.0 [facility] Comment on above: Order Comment: No: D o not add to previous draw Performed By: #### [id number] #### [facility] [address] [place] [id number], [facility] Neutrophils/100 WBC (Bld) 61.6 % Normal 40.0-72.0 [facility] Comment on above: Order Comment: No: D o not add to previous draw Performed By: #### [id number] #### [facility] [address] [place] [id number], [facility] Nucleated RBC/100 WBC (Bld) [Ratio] 0 % Normal 0-0 [facility] Comment on above: Order Comment: No: D o not add to previous draw Performed By: #### [id number] #### [facility] [address] [place] [address], [facility] PLAT CNT 382 10*3/uL Normal 150-400 [facility] Comment on above: Order Comment: No: D o not add to previous draw Performed By: #### 5 [id number] #### [facility] [address] [place] [address], [facility] RBC (Bld) [#/Vol] 3.63 10*6/uL Low 3.80-5.00 [facility] Comment on above: Order Comment: No: D o not add to previous draw Performed By: #### [id number] #### [facility] [address] [facility] [place] [address], [facility] WBC (Bld) [#/Vol] 6.45 10*3/uL Normal 4.00-10.60 [facility] Comment on above: Order Comment: No: D o not add to previous draw Performed By: #### [id number] #### [facility] [address] [facility] LIPASE BLOODon 08-13-2019 Lipase [Catalytic activity/Vol] 13 Units/L Normal 11-82 [facility] Comment on above: Performed By: #### [id number], [id number] #### [facility] [address] Vital Signs Date Time Vital Sign Value Performing Clinician Facility 08-17-2024 13:40-0500 Body temperature 97.7 [degF] Justin Lucero MD Work Phone: [facility] 08-17-2024 13:40-0500 Diastolic blood pressure 89 mm[Hg] Justin Lucero MD Work Phone: [facility] 08-17-2024 13:40-0500 Heart rate 68 /min Justin [facility] MD [facility] 08-17-2024 13:40-0500 Respiratory rate 12 /min Justin Lucero MD Work Phone: [facility] 08-17-2024 13:40-0500 SaO2% (BldA) [Mass fraction] 99 % Justin Lucero MD Work Phone: [facility] 08-17-2024 13:40-0500 Systolic blood pressure 159 mm[Hg] Justin Lucero MD [facility] [employer] 08-17-2024 11:29-0500 Body height 170.2 cm Justin Lucero MD Work Phone: [facility] 08-17-2024 11:29-0500 Body mass index (BMI) [Ratio] 29.75 kg/m2 Justin Lucero MD Work Phone: [facility] 08-17-2024 11:29-0500 Body weight 86.18 kg Justin Lucero MD [facility] 07-13-2024 11:29-0500 Body height 170.2 cm Kulwant Hodge MD Work Phone: [facility] 07-13-2024 11:29-0500 Body mass index (BMI) [Ratio] 29.44 kg/m2 Kulwant Hodge MD Work Phone: [facility] 07-13-2024 11:29-0500 Body weight 85.28 kg Kulwant Hodge MD Work Phone: [facility] 07-13-2024 11:29-0500 Diastolic blood pressure 70 mm[Hg] Kulwant Hodge MD Work Phone: [facility] 07-13-2024 11:29-0500 Heart rate 68 /min Kulwant Hodge MD Work Phone: [facility] Comment on above: 02 SAT 96% 07-13-2024 11:29-0500 Respiratory rate 16 /min Kulwant Hodge MD Work Phone: [facility] 07-13-2024 11:29-0500 Systolic blood pressure 116 mm[Hg] Kulwant Hodge MD Work Phone: [facility] 06-20-2024 11:08-0400 Body height 170.2 cm Kulwant Hodge MD Work Phone: [facility] 06-20-2024 11:08-0400 Body mass index (BMI) [Ratio] 28.98 kg/m2 Kulwant Hodge MD Work Phone: [facility] 06-20-2024 11:08-0400 Body weight 83.92 kg Kulwant Hodge MD Work Phone: [facility] 06-20-2024 11:08-0400 Diastolic blood pressure 92 mm[Hg] Kulwant Hodge MD Work Phone: [facility] 06-20-2024 11:08-0400 Heart rate 62 /min Kulwant Hodge MD Work Phone: [facility] 06-20-2024 11:08-0400 Respiratory rate 16 /min Kulwant Hodge MD Work Phone: [facility] 06-20-2024 11:08-0400 Systolic blood pressure 140 mm[Hg] Kulwant Hodge MD Work Phone: [facility] 05-11-2024 10:50-0400 Diastolic blood pressure 80 mm[Hg] FRUIT DRYER-C Judi Youssef Work Phone: [facility] 05-11-2024 10:50-0400 Heart rate 67 /min [employer] Judi Youssef Work Phone: [facility] 05-11-2024 10:50-0400 Respiratory rate 16 /min [employer] Judi Youssef Work Phone: [facility] 05-11-2024 10:50-0400 SaO2% (BldA) [Mass fraction] 100 % [employer] Judi Youssef Work Phone: [facility] 05-11-2024 10:50-0400 Systolic blood pressure 130 mm[Hg] FRUIT DRYER-C Judi Youssef Work Phone: [facility] 05-11-2024 08:23-0400 Body height 170.18 cm [employer] Judi Youssef Work Phone: [facility] 05-11-2024 08:23-0400 Body weight 81.64 kg [employer] Judi Youssef Work Phone: [facility] 04-26-2024 08:27-0400 Body height 170.18 cm [facility] 04-26-2024 08:27-0400 Body mass index (BMI) [Ratio] 28.5 kg/m2 [facility] 04-26-2024 08:27-0400 Body weight 82.55 kg [facility] 04-26-2024 08:27-0400 Diastolic blood pressure 82 mm[Hg] [facility] 04-26-2024 08:27-0400 Heart rate 59 /min [facility] 04-26-2024 08:27-0400 Systolic blood pressure 132 mm[Hg] [facility] 02-16-2024 09:03-0400 Blood Pressure Location Yolanda Orzech [facility] 02-16-2024 09:03-0400 Body temperature 97.7 [degF] Yolanda Orzech [facility] 02-16-2024 09:03-0400 Diastolic blood pressure 84 mm[Hg] Yolanda Orzech [facility] 02-16-2024 09:03-0400 Heart rate 78 /min Yolanda Orzech [facility] 02-16-2024 09:03-0400 Systolic blood pressure 128 mm[Hg] Yolanda Lou [facility] 07-22-2023 13:19-0500 Body height 170.[address] Work Phone: [facility] 07-22-2023 13:19-0500 Body weight 83.[address] Work Phone: [facility] 07-14-2023 11:40-0500 Diastolic blood pressure 95 mm[Hg] Marques Bradley MD Work Phone: [facility] 07-14-2023 11:40-0500 Heart rate 56 /min Marques Bradley MD Work Phone: [facility] 07-14-2023 11:40-0500 Respiratory rate 16 /min Marques Bradley MD Work Phone: [facility] 07-14-2023 11:40-0500 SaO2% (BldA) [Mass fraction] 97 % Marques Bradley MD Work Phone: [facility] 07-14-2023 11:40-0500 Systolic blood pressure 158 mm[Hg] Marques Bradley MD Work Phone: [facility] 07-14-2023 11:10-0500 Body temperature 97.2 [degF] Marques Bradley MD Work Phone: [facility] 07-14-2023 08:34-0500 Body height 170.2 cm Marques Bradley MD Work Phone: [facility] 07-14-2023 08:34-0500 Body weight 88 kg Marques Bradley MD Work Phone: [facility] 04-21-2023 09:30-0400 Body height 170.18 cm Renny Omalley Other [employer] Other 04-21-2023 09:30-0400 Body mass index (BMI) [Ratio] 31.21 kg/m2 Renny Omalley Other [facility] [employer] Other 04-21-2023 09:30-0400 Body weight 90.4 kg Renny Omalley Other [employer] [facility] [employer] Other 04-21-2023 09:30-0400 Diastolic blood pressure 78 mm[Hg] Renny Omalley Other [facility] [employer] Other 04-21-2023 09:30-0400 Systolic blood pressure 130 mm[Hg] Renny Omalley Other [facility] [employer] Other 03-23-2023 07:33-0400 Diastolic blood pressure 80 mm[Hg] FR[employer]C Judijose manuel Ugaldemer Work Phone: [facility] 03-23-2023 07:33-0400 Heart rate 81 /min [employer] Judi Mikael Work Phone: [facility] 03-23-2023 07:33-0400 Respiratory rate 14 /min [employer] Judi Mikael Work Phone: [facility] 03-23-2023 07:33-0400 SaO2% (BldA) [Mass fraction] 95 % [employer] Judi Mikael Work Phone: [facility] 03-23-2023 07:33-0400 Systolic blood pressure 171 mm[Hg] FR[employer] DR[employer]ER-C Judi Mikael Work Phone: [facility] 03-23-2023 06:20-0400 Body height 170.18 cm [employer] Judi Mikael Work Phone: [facility] 03-23-2023 06:20-0400 Body temperature 97.4 [degF] FR[employer] DR[employer]ER-C Judi Mikael Work Phone: [facility] 03-23-2023 06:20-0400 Body weight 90 kg [employer] Judi Mikael Work Phone: [facility] 02-19-2023 00:53-0400 Body temperature 96.98 [degF] Kaylinn Dokken [facility] 02-19-2023 00:53-0400 Diastolic blood pressure 99 mm[Hg] Kaylinn Dokken [facility] 02-19-2023 00:53-0400 Heart rate 75 /min Kaylinn Dokken [facility] 02-19-2023 00:53-0400 Respiratory rate 16 /min Franklinylinn Dokken [facility] 02-19-2023 00:53-0400 SaO2% (BldA) [Mass fraction] 98 % Franklinylinn Dokken [facility] 02-19-2023 00:53-0400 Systolic blood pressure 153 mm[Hg] Franklinylinn Dokken [facility] 02-15-2023 10:33-0400 Diastolic blood pressure 89 mm[Hg] FRUIT DRYER-C Judi Mikael Work Phone: [facility] 02-15-2023 10:33-0400 SaO2% (BldA) [Mass fraction] 100 % [employer] Judi Mikael Work Phone: [facility] 02-15-2023 10:33-0400 Systolic blood pressure 149 mm[Hg] FRUIT DRYER-C Judi Mikael Work Phone: [facility] 02-15-2023 10:00-0400 Heart rate 83 /min [employer]C Judi Mikael Work Phone: [facility] 02-15-2023 10:00-0400 Respiratory rate 16 /min [employer] Judi Mikael Work Phone: [facility] 02-15-2023 08:06-0400 Body height 170.18 cm [employer] Judi Mikael Work Phone: [facility] 02-15-2023 08:06-0400 Body temperature 97.6 [degF] FR[employer] DR[employer]ER-C Judi Mikael Work Phone: [facility] 02-15-2023 08:06-0400 Body weight 89.2 kg [employer] Judi Mikael Work Phone: [facility] 10-26-2022 08:03-0500 Diastolic blood pressure 87 mm[Hg] FRUIT DRYER-C Judi Mikael Work Phone: [facility] 10-26-2022 08:03-0500 Heart rate 70 /min [employer] Judi Mikael Work Phone: [facility] 10-26-2022 08:03-0500 Respiratory rate 18 /min [employer] Judi Mikael Work Phone: [facility] 10-26-2022 08:03-0500 SaO2% (BldA) [Mass fraction] 98 % [employer]-C Judi Mikael Work Phone: [facility] 10-26-2022 08:03-0500 Systolic blood pressure 161 mm[Hg] FRUIT DRYER-C Judi Mikael Work Phone: [facility] 10-26-2022 06:17-0500 Body height 170.18 cm [employer]C Judi Mikael Work Phone: [facility] 10-26-2022 06:17-0500 Body temperature 97.2 [degF] FRUIT DRYER-C Judi Mikael Work Phone: [facility] 10-26-2022 06:17-0500 Body weight 88.9 kg [employer]-C Judi Mikael Work Phone: [facility] 07-22-2022 14:34-0500 Diastolic blood pressure 83 mm[Hg] Ospina SALAM [facility] 07-22-2022 14:34-0500 Mean blood pressure 101 mm[Hg] Ospina SALAM [facility] 07-22-2022 14:34-0500 Systolic blood pressure 136 mm[Hg] Ospina SALAM [facility] 07-22-2022 14:30-0500 Blood Pressure Location Ospina SALAM [facility] 07-22-2022 14:30-0500 Diastolic blood pressure 89 mm[Hg] Ospina SALAM [facility] 07-22-2022 14:30-0500 Heart rate 62 /min Ospina SALAM [facility] 07-22-2022 14:30-0500 Respiratory rate 16 /min Ospina SALAM [facility] 07-22-2022 14:30-0500 SaO2% (BldA) [Mass fraction] 98 % Ospina SALAM [facility] 07-22-2022 14:30-0500 Systolic blood pressure 141 mm[Hg] Ospina SALAM [facility] 04-14-2022 14:50-0400 Blood Pressure Location Moniquejuan luis ReddyJimmy [facility] 04-14-2022 14:50-0400 Body temperature 97.16 [degF] Monique Jimmy [facility] 04-14-2022 14:50-0400 Diastolic blood pressure 86 mm[Hg] Monique Jimmy [facility] 04-14-2022 14:50-0400 Heart rate 72 /min Monique Jimmy [facility] 04-14-2022 14:50-0400 SaO2% (BldA) [Mass fraction] 97 % Monique Castañedaz [facility] 04-14-2022 14:50-0400 Systolic blood pressure 131 mm[Hg] Moniquejuan luis Marquez [facility] 01-28-2022 13:36-0400 Blood Pressure Location Monique Marquez [facility] 01-28-2022 13:36-0400 Body temperature 97.52 [degF] Monique Marquez [facility] 01-28-2022 13:36-0400 Diastolic blood pressure 85 mm[Hg] Monique Marquez [facility] 01-28-2022 13:36-0400 Heart rate 73 /min Monique Marquez [facility] 01-28-2022 13:36-0400 SaO2% (BldA) [Mass fraction] 96 % Monique Marquez [facility] 01-28-2022 13:36-0400 Systolic blood pressure 122 mm[Hg] Monique Reddymetz [facility] 01-11-2022 10:15-0400 Blood Pressure Location Anai FORBES [facility] 01-11-2022 10:15-0400 Diastolic blood pressure 106 mm[Hg] Ospina SALAM [facility] 01-11-2022 10:15-0400 Heart rate 70 /min Ospina SALAM [facility] 01-11-2022 10:15-0400 Respiratory rate 28 /min Ospina SALAM [facility] 01-11-2022 10:15-0400 SaO2% (BldA) [Mass fraction] 99 % Ospina SALAM [facility] 01-11-2022 10:15-0400 Systolic blood pressure 137 mm[Hg] Ospina SALAM [facility] 01-11-2022 10:05-0400 Blood Pressure Location Ospina SALAM [facility] 01-11-2022 10:05-0400 Diastolic blood pressure 74 mm[Hg] Ospina SALAM [facility] 01-11-2022 10:05-0400 Heart rate 67 /min Ospina SALAM [facility] 01-11-2022 10:05-0400 Respiratory rate 14 /min Ospina SALAM [facility] 01-11-2022 10:05-0400 SaO2% (BldA) [Mass fraction] 97 % Ospina SALAM [facility] 01-11-2022 10:05-0400 Systolic blood pressure 128 mm[Hg] Ospina SALAM [facility] 01-11-2022 10:00-0400 Blood Pressure Location Ospina SALAM [facility] 05-09-2022 10:00-0400 Diastolic blood pressure 79 mm[Hg] Ospina SALAM [facility] 01-11-2022 10:00-0400 Heart rate 66 /min Ospina SALAM [facility] 01-11-2022 10:00-0400 Respiratory rate 16 /min Ospina SALAM [facility] 01-11-2022 10:00-0400 SaO2% (BldA) [Mass fraction] 98 % Ospina SALAM [facility] 01-11-2022 10:00-0400 Systolic blood pressure 134 mm[Hg] Ospina SALAM [facility] 01-11-2022 09:50-0400 Body temperature 97.52 [degF] Ospina SALAM [facility] 01-11-2022 09:45-0400 Respiratory rate 15 /min Ospina SALAM [facility] 01-11-2022 09:18-0400 Body temperature 97.34 [degF] Ospina SALAM [facility] 01-11-2022 09:18-0400 Respiratory rate 20 /min [facility] SALAM [facility] Encounters Encounter Date Encounter Type Care Provider Facility Start: 08-17-2024 End: 08-17-2024 ambulatory JUSTIN LUCERO [facility] Start: 08-17-2024 End: 08-17-2024 Subsequent hospital visit by physician Justin Lucero MD Work Phone: [facility] Comment on above: Other dysphagia (Apple alfonzo Dx) Start: 07-13-2024 End: 07-13-2024 Bamboo flowsheet Kulwant Hodge MD Work Phone: [facility] Start: 07-13-2024 End: 07-13-2024 Bamboo flowsheet Kulwant Hodge MD Work Phone: [facility] Start: 07-13-2024 End: 07-13-2024 Office outpatient visit 25 minutes Kulwant Hodge MD Work Phone: [facility] Comment on above: Hypoglycemia Start: 07-13-2024 End: 07-13-2024 ambulatory KULWANT HODGE Not Available Start: 06-20-2024 End: 06-20-2024 Bamboo flowsheet Kulwant Hodge MD Work Phone: [facility] Start: 06-20-2024 End: 06-20-2024 Bamboo flowsnidhi Hodge MD Work Phone: [facility] Start: 06-20-2024 End: 06-20-2024 ambulatory KULWANT HODGE Not Available Start: 06-20-2024 End: 06-20-2024 Office outpatient new 45 minutes Kulwant Hodge MD Work Phone: [facility] Comment on above: Hypoglycemia (Primar y Dx); Encounter for dietary consultation Start: 06-19-2024 End: 06-19-2024 Patient encounter procedure FRUIT DRYER-C Judi Youssef Work Phone: [facility] Work Phone: Start: 06-19-2024 End: 06-19-2024 ambulatory Judi Youssef Facility:[facility] Start: 06-07-2024 End: 06-07-2024 ambulatory Yolanda Lou Facility: [place] Start: 06-07-2024 End: 06-07-2024 Patient encounter procedure Yolanda Lou [facility] Start: 05-14-2024 End: 05-14-2024 ambulatory [facility] Start: 05-11-2024 Non-patient / Non-visit FRUIT DRYER-C Cesia Youssef Work Phone: [facility] Physician [facility] Gastroenterology Work Phone: Start: 05-11-2024 End: 05-11-2024 Admission to same day surgery center FRUIT DRYER-C Judi Youssef Work Phone: [facility] Work Phone: Start: 05-11-2024 End: 05-11-2024 ambulatory FRUIT DRYER-C Judi Youssef Work Phone: [facility] Work Phone: Start: 04-26-2024 End: 04-26-2024 ambulatory [facility] Work Phone: Start: 04-26-2024 End: 04-26-2024 Patient encounter procedure [facility] G[facility]enterology Work Phone: Start: 04-13-2024 Non-patient / Non-visit FRUIT DRYER-C Cesia Youssef Work Phone: [facility] Physician [facility] Work Phone: Start: 03-19-2024 End: 03-19-2024 ambulatory [facility] Start: 02-16-2024 End: 02-16-2024 ambulatory Yolanda X Orzech [facility] Start: 02-16-2024 End: 02-16-2024 Lab Drop off Yolanda X Orzech [facility] Start: 02-16-2024 End: 02-16-2024 ambulatory Yolanda X Orzech Facility: [place] Start: 02-16-2024 End: 02-16-2024 Patient encounter procedure Yolanda X Orzech [facility] Start: 02-15-2024 End: 02-15-2024 ambulatory [facility] Start: 12-01-2023 ambulatory [facility] Start: 08-25-2023 End: 08-25-2023 ambulatory [facility] Facility:[facility] Start: 07-29-2023 Orders Only Evelyn Black RN Gen eral Surgery Comment on above: Gastroparesis (Prima ry Dx) Start: 07-22-2023 End: 07-22-2023 ambulatory MARQUES BRADLEY Facility:[facility] Start: 07-22-2023 Telephone encounter Evelyn Black RN General Surgery Start: 07-22-2023 End: 07-22-2023 Nutrition therapy Melissa Montalvo RD Work Phone: General Surgery Comment on above: Gastroparesis (Prima ry Dx); Malnutrition of moderate degree (HCC); Gastro-esophageal reflux disease without esophagitis; Overweight (BMI 25.0-29.9); Dietary counseling and surveillance Start: 07-22-2023 End: 07-22-2023 Telemedicine consultation with patient Melissa Montalvo RD Work Phone: [facility] Start: 07-14-2023 End: 07-14-2023 ambulatory MARQUES BRADLEY Facility:[facility] Start: 07-14-2023 End: 07-14-2023 Subsequent hospital visit by physician Marques Bradley MD Work Phone: Gastroenterology Comment on above: Dysphagia, unspecifi ed type [R13.10] Start: 07-13-2023 End: 07-13-2023 ambulatory MARQUES BRADLEY Facility:[facility] Start: 06-06-2023 End: 06-06-2023 ambulatory Samuel Sameer [facility] Start: 05-27-2023 Telephone encounter Evelyn Black RN General Surgery Comment on above: Results Start: 05-26-2023 End: 05-26-2023 ambulatory MARQUES BRADLEY Facility:[facility] Start: 05-25-2023 End: 05-25-2023 ambulatory [facility] Facility:[facility] Start: 05-25-2023 End: 05-25-2023 Nursing evaluation of patient and report Nurse [facility] 2 Work Phone: Gastroenterology Comment on above: Nausea Start: 05-16-2023 Orders Only Evelyn Black RN Gen eral Surgery Comment on above: Nausea (Primary Dx); Dysphagia, unspecified type Start: 05-06-2023 End: 05-07-2023 ambulatory MARQUES BRADLEY Facility:[facility] Start: 05-02-2023 Telephone encounter Evelyn Black RN General Surgery Start: 04-26-2023 Telephone encounter Evelyn Black RN General Surgery Start: 04-21-2023 End: 04-21-2023 ambulatory Renny Omalley Other [employer] Other Start: 04-21-2023 Office outpatient vi sit 15 minutes Renny Omalley [facility] Start: 04-18-2023 Telephone encounter Evelyn Black RN General Surgery Comment on above: [employer]acc[employer] 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 Start: 04-07-2023 Telephone encounter Guillermo Martinez DO Work Phone: Gastroenterology Comment on above: Appointment Start: 04-05-2023 End: 04-05-2023 ambulatory Imad Asaad Other [employer] Other Start: 04-05-2023 Telephone encounter Imad Asaad [facility] Start: 03-29-2023 ambulatory Facility:U Start: 03-26-2023 ambulatory Facility:[id number] Start: 03-26-2023 ambulatory Facility:[id number] Start: 03-24-2023 End: 03-24-2023 ambulatory Imad Asaad Other [employer] Other Start: 03-24-2023 Telephone encounter Imad Asaad [facility] Start: 03-23-2023 End: 03-23-2023 Emergency department patient visit DONI Youssef Work Phone: [facility] Work Phone: Start: 03-22-2023 End: 03-22-2023 ambulatory Imad Asaad Other [employer] Other Start: 03-22-2023 Telephone encounter Imad Asaad [facility] Start: 03-09-2023 End: 03-09-2023 ambulatory Imad Asaad Other [employer] Other Start: 03-09-2023 Telephone encounter Imad Asaad [facility] Start: 03-01-2023 End: 03-01-2023 ambulatory Imad Asaad Other [employer] Other Start: 03-01-2023 Telephone encounter Imad Asaad [facility] Start: 02-19-2023 End: 02-19-2023 Emergency department patient visit Zabrina Patton [facility] Start: 02-15-2023 End: 02-15-2023 Emergency department patient visit FRUIT DRYER-C Judi Youssef Work Phone: [facility]-Emergency Room Work Phone: Start: 11-30-2022 End: 12-01-2022 ambulatory JUDI YOUSSEF Facility:H1 Start: 11-27-2022 End: 11-28-2022 ambulatory JUDI YOUSSEF Facility:H1 Start: 11-26-2022 End: 11-26-2022 ambulatory Imad Asaad Other [facility] [employer] Other Start: 11-26-2022 Telephone encounter Imad Asaad [facility] Start: 11-04-2022 End: 11-04-2022 Admission to same day surgery center [facility] Judi Youssef Work Phone: [facility]-CT Scan Main [place] Work Phone: Start: 11-04-2022 End: 11-04-2022 ambulatory FRUIT DRYER-C Judi Youssef Work Phone: [facility] Work Phone: Start: 11-01-2022 End: 11-02-2022 ambulatory JUDI YOUSSEF Facility:H1 Start: 10-26-2022 End: 10-26-2022 Emergency department patient visit FRUIT DRYER-C Judi Mikael Work Phone: [facility]-Emergency [facility] Work Phone: Start: 09-21-2022 End: 09-21-2022 ambulatory JUDI YOUSSEF Facility:H1 Start: 09-18-2022 End: 09-18-2022 ambulatory BALTAZAR GEORGES . Facility:H1 Start: 09-14-2022 End: 09-14-2022 ambulatory EUN WILSON . Facility:H1 Start: 09-07-2022 End: 09-07-2022 ambulatory Imad Nany Other [employer] Other Start: 09-07-2022 Telephone encounter Jennie Ayon [facility] Start: 09-06-2022 End: 09-07-2022 ambulatory JUDI YOUSSEF Facility:H1 Start: 08-20-2022 End: 08-20-2022 ambulatory BALTAZAR GEORGES . Facility:H1 Start: 08-17-2022 End: 08-18-2022 ambulatory JUDI YOUSSEF Facility:H1 Start: 08-11-2022 End: 08-12-2022 ambulatory JUDI YOUSSEF Facility:H1 Start: 08-08-2022 End: 08-08-2022 ambulatory KATHRIN VANCE Facility:H1 Start: 07-22-2022 End: 07-22-2022 Patient encounter procedure Ospina SALAM [facility] Start: 07-21-2022 End: 07-21-[address] NORA WINN Facility:H1 Start: 07-15-2022 ambulatory JUDI YOUSSEF Facility: H1 Start: 07-12-2022 Encounter for genera l adult medical examination without abnormal findings JUDI YOUSSEF [facility] Start: 07-08-2022 End: 07-09-2022 ambulatory JUDI [...] End: 04-29-2022 Lab Drop off Anai FORBES [facility] Start: 04-14-2022 End: 04-14-2022 Patient encounter procedure Monique Marquez [facility] Start: 03-27-2022 End: 03-30-2022 Evaluation and management of inpatient SHAIKH Juan Luis DAVIS Facility:H1 Start: 03-01-2022 End: 03-01-2022 Patient encounter procedure Monique Marquez [facility] Start: 02-02-2022 End: 02-02-2022 ambulatory BALTAZAR GEORGES . Facility:H1 Start: 01-28-2022 End: 01-28-2022 Patient encounter procedure Monique Marquez [facility] Start: 01-11-2022 End: 01-11-2022 Patient encounter procedure Anai FORBES [facility] Start: 12-24-2021 End: 12-24-2021 Patient encounter procedure JHOANA MELGOZA [facility] Start: 08-13-2019 End: 08-16-2019 Evaluation and management of inpatient LEONA MORTENSEN Facility:[facility] Procedures Date Procedure Procedure Detail Performing Clinician Start: 07-13-2024 Gluc bld gluc mntr dev cleared fda spec home use Kulwant Hodge MD Work Phone: Start: 06-20-2024 Gluc bld gluc mntr dev cleared fda spec home use Kulwant Hodge MD Work Phone: Start: 05-11-2024 Esophagogastroduodenoscopy FRUIT DRYER-C Judi C carmen Work Phone: Start: 07-14-2023 Esophagoscp rig transoral hypopharynx crv esoph Evelyn Black RN Start: 05-25-2023 Esophageal motility study w/interp&rpt Evelyn Black RN Start: 03-23-2023 Computed tomography of abdomen and pelvis with contrast [facility] Judi Mikael Work Phone: Start: 02-15-2023 Computed tomography of abdomen and pelvis with contrast [facility] Judi Mikael Work Phone: Start: 11-04-2022 CT of small intestine FRUIT DRYER-C Judi Mikael Work Phone: Start: 10-26-2022 Computed tomography of abdomen and pelvis with contrast FRUIT DRYER-C Judi Mikael Work Phone: Start: 01-11-2022 Esophagogastroduodenoscopy Anai FORBES Start: 05-13-2021 Esophagogastroduodenoscopy JHOANA PULIDO Y Start: 09-30-2020 Esophagogastroduodenoscopy JHOANA PULIDO Y Start: 03-13-2020 Colonoscopy Kulwant Hodge MD Work Phone: Start: 03-13-2020 Colonoscopy JHOANA MELGOZA Start: 01-30-2020 Esophagogastroduodenoscopy JHOANA PULIDO Y Start: 08-15-2019 FLUOROSCOPY OF UPPER GI AND SMALL BOWEL USING OTHER CONTRAST ORESTES CONDON Start: 05-17-2019 Colonoscopy JHOANA MELGOZA Start: 05-17-2019 Esophagogastroduodenoscopy JHOANA Vázquez Start: 03-02-2019 Hernia surgical mesh (physical object) JHOANA MELGOZA Comment on above: Dr. Mortensen in [place]. Hernia repair JHOANA MELGOZA Hysterectomy JHOANA MELGOZA Plan of Treatment Date Care Activity Detail Author Start: 03-13-2030 Screening for malignant neoplasm of colon [facility] Start: 11-29-2024 End: 11-29-2024 Patient encounter procedure 11/29/2024 11:00 AM EDT Office Visit [facility] [address] [place] [id number] Kulwant Hodge MD [address] [place] [address] [facility] Start: 08-17-2024 End: 08-17-2025 Radiologic exam swallow function contrast study FL MODIFIED BARIUM SWALLOW W VIDEO Imaging Routine Other dysphagia Expected: 08/17/2024, Expires: 08/17/2025 [facility] Comment on above: Expected: 08/17/2024, Expires: Start: 08-17-2024 End: 08-17-2024 Egd transoral biopsy single/multiple ESOPHAGOGASTRODUODENOSCOPY BIOPSY Other dysphagia 08/17/2024 12:58 PM [facility] Start: 07-13-2024 End: 07-13-2024 Patient encounter procedure [facility] Comment on above: Arrived Start: 06-22-2024 Shingles vaccine (2 of 2) Shingles vaccine (2 of 2) [facility] Start: 06-20-2024 End: 06-20-2025 Basic metabolic 1998 panel - Serum or Plasma Basic metabolic panel Lab Routine Hypoglycemia Expected: 06/20/2024 (Approximate), Expires: 06/20/2025 [facility] Comment on above: Expected: 06/20/2024 (Approximate), Expi res: 06/20/2025 Start: 06-20-2024 End: 06-20-2025 C peptide [Mass/volume] in Serum or Plasma --fasting C PEPTIDE FASTING Lab Routine Hypoglycemia Expected: 06/20/2024 (Approximate), Expires: 06/20/2025 [facility] Work Phone: Comment on above: Expected: 06/20/2024 (Approximate), Expi res: 06/20/2025 Start: 06-20-2024 End: 06-20-2025 Hepatic function 2000 panel - Serum or Plasma Hepatic function panel Lab Routine Hypoglycemia Expected: 06/20/2024 (Approximate), Expires: 06/20/2025 [facility] Comment on above: Expected: 06/20/2024 (Approximate), Expi res: 06/20/2025 Start: 06-20-2024 End: 06-20-2025 Insulin, fasting Insulin, fasting Lab Routine Hypoglycemia Expected: 06/20/2024 (Approximate), Expires: 06/20/2025 [facility] Comment on above: Expected: 06/20/2024 (Approximate), Expi res: 06/20/2025 Start: 06-20-2024 End: 06-20-2025 Insulin-like growth factor 2 Insulin-like growth factor 2 Lab Routine Hypoglycemia Expected: 06/20/2024 (Approximate), Expires: 06/20/2025 [facility] Comment on above: Expected: 06/20/2024 (Approximate), Expi res: 06/20/2025 Start: 06-20-2024 End: 06-20-2025 Proinsulin Proinsulin Lab Routine Hypoglycemia Expected: 06/20/2024 (Approximate), Expires: 06/20/2025 [facility] Comment on above: Expected: 06/20/2024 (Approximate), Expi res: 06/20/2025 Start: 05-11-2024 [facility] Start: 05-06-2024 COVID-19 Vaccine ( season) COVID-19 Vaccine ( season) [facility] Start: 05-06-2024 Influenza vaccination Influenza Vaccine (#1) [facility] Start: 04-05-2024 Influenza vaccination Flu vaccine (#1) [facility] Start: 05-06-2023 Covid-19 Vaccine ( season) Covid-19 Vaccine () [facility] Start: 05-06-2023 Influenza vaccination [facility] Start: 09-05-2022 DEPRESSION ASSESSMENT DEPRESSION ASSESSMENT [facility] Start: 01-01-2022 COVID-19 VACCINE (4 - Pfizer series) COVID-19 VACCINE (4 - Pfizer series) [facility] Start: 2020 SHINGRIX VACCINE (1 of 2) SHINGRIX VACCINE (1 of 2) [facility] Start: 2015 COLOGUARD (FIT-DNA) COLOGUARD (FIT-DNA) [facility] Start: 2015 Colonoscopy COLONOSCOPY [facility] Start: 2015 COLORECTAL CANCER SCREENING COLORECTAL CANCER SCREENING [facility] Start: [address] COLONOGRAPHY [facility] Start: 2015 DIABETES SCREEN DIABETES SCREEN [facility] Start: 2015 Diabetes Screening Diabetes Screening [facility] Start: 2015 FECAL OCCULT BLOOD FECAL OCCULT BLOOD [facility] Start: 2015 Lipid 1996 panel - Serum or Plasma Lipid Screening [facility] Start: 2015 LIPID SCREEN LIPID SCREEN [facility] Start: 2015 Screening for malignant neoplasm of colon [facility] Start: 2015 SIGMOIDOSCOPY SIGMOIDOSCOPY [facility] Start: 2010 Lipid panel Lipids [facility] Start: 2010 Mammography [facility] Start: 2010 Screening for malignant neoplasm of breast [facility] Start: 2005 Diabetes screen Diabetes screen [facility] Start: 2000 HPV TESTING HPV TESTING [facility] Start: 2000 Screening for malignant neoplasm of cervix [facility] Start: 1991 PAP TESTING PAP TESTING [facility] Start: 1991 Screening for malignant neoplasm of cervix Pap Smear [facility] Start: 1989 DTaP/Tdap/Td vaccine (1 - Tdap) DTaP/Tdap/Td vaccine (1 - Tdap) [facility] Start: 1989 Hepatitis B vaccine (1 of 3 - 19+ 3-dose series) Hepatitis B vaccine (1 of 3 - 19+ 3-dose series) [facility] Start: 1989 Urine microalbumin profile [facility] Start: 1988 HEPATITIS C SCREENING HEPATITIS C SCREENING [facility] Start: 1988 Hepatitis C screening Hepatitis C screen [facility] Start: 1988 HIV SCREENING HIV SCREENING [facility] Start: 1985 HIV screening HIV screen [facility] Start: 1982 Depression Screen Depression Screen [facility] Start: 1970 COVID-19 VACCINE (#1) COVID-19 VACCINE (#1) [facility] Start: 1970 HEPATITIS B (1 of 3 - 3-dose series) HEPATITIS B (1 of 3 - 3-dose series) [facility] Start: 1970 Hepatitis B Vaccine (1 of 3 - 3-dose series) Hepatitis B Vaccine (1 of 3 - 3-dose series) [facility] Start: 1970 Screening for malignant neoplasm of colon [facility] End: 07-29-2024 EGD - THERAPEUTIC, EUS, OR TUBE INTERVENTIONS EGD - THERAPEUTIC, EUS, OR TUBE INTERVENTIONS Endoscopy Routine Gastroparesis 1 Occurrences starting 07/29/2023 until 07/29/2024 [facility] Work Phone: Comment on above: 1 Occurrences starting 07/29/2023 until 07/29/2024 End: 05-16-2024 Esophageal motility study w/interp&rpt MANOMETRY ESOPHAGEAL Endoscopy Routine Nausea 1 Occurrences starting 05/16/2023 until 05/16/2024 [facility] Work Phone: Comment on above: 1 Occurrences starting 05/16/2023 until 05/16/2024 Esophageal motility study w/interp&rpt MANOMETRY ESOPHAGEAL Endoscopy Routine Nausea 05/25/2023 [facility] Work Phone: End: 06-14-2024 Gastric emptying imaging study NM GASTRIC EMPTYING SOLID Radiology Routine Nausea 1 Occurrences starting 05/16/2023 until 06/14/2024 [facility] Work Phone: Comment on above: 1 Occurrences starting 05/16/2023 until 06/14/2024 Oxygen therapy [Minimum Data Set] Initiate Oxygen Therapy Protocol Respiratory Care Routine As Needed until discontinued starting 08/17/2024 [facility] Work Phone: Comment on above: As Needed until discontinued starting Patient Education [facility] Work Phone: Patient referral [facility] Work Phone: SURGICAL PATHOLOGY [facility] Work Phone: Comment on above: Release Upon Ordering for 1 Occurrences starting 07/14/2023, 1 completed [facility] Immun[facility] Immunization Date Immunization Notes Care Provider [facility] 04-27-2024 zoster vaccine recombinant Kulwant Hodge MD Work Phone: [facility] 06-15-2022 SARS-CoV-2 (COVID-19 ) [id number] Yolanda Lou [facility] 06-09-2022 influenza, seasonal, injectable Kulwant Hodge MD Work Phone: [facility] 06-09-2022 influenza virus vaccine, unspecified formulation Nurse 2 Work Phone: [facility] 03-18-2022 SARS-CoV-2 mRNA (zdlsybpxnid-efss-awa jett) vaccine Ospina SALAM [facility] 11-06-2021 SARS-CoV-2 (COVID-19 ) mRNA BNT-162b2 vax Ospina SALAM [facility] 05-06-2021 influenza virus vaccine, unspecified formulation JHOANA MELGOZA [facility] 02-26-2021 SARS-CoV-2 (COVID-19 ) mRNA BNT-162b2 vax JHOANA MELGOZA [facility] 02-05-2021 SARS-CoV-2 (COVID-19 ) mRNA BNT-162b2 vax Anai FORBES [facility] Comment on above: Result Comment: 2021: [id number] NEGATED: Highlighted row has not occurred!04-14-2022 influenza virus vaccine, unspecified formulation Monique Marquez [facility] Payers Date Payer Category Payer [facility] [id number] 2022 Unknown RINA FLORESITA MARTINEZ SS PPO [id number] 2022-Present [phone] [address] [place] [address] PPO [id number] 2018 Private Health Insurance [id number] 2018 Private Health Insurance [facility] CHOICE PLUS [id number] 2018-Present [phone] [address] [place] [address] HMO [id number] 1970 Unknown [id number] 2.16.840.1.371143.3.579.2 .647 1970 Unknown [id number] 2.16.840.1.217963.3.579.2 .593 1970 Unknown [id number] 2.16.840.1.373193.3.579.2 .593 1970 Unknown [id number] 2.16.840.1.596392.3.579.2 .593 1970 Unknown [id number] 2.16.840.1.670883.3.579.2 .593 1970 Unknown [id number] 2.16.840.1.116488.3.579.2 .593 1970 Unknown [id number] 2.16.840.1.020925.3.579.2 .593 1970 Unknown [id number] 2.16.840.1.797325.3.579.2 .593 1970 Unknown [id number] 2.16.840.1.214297.3.579.2 .593 1970 Unknown [id number] 2.16.840.1.607936.3.579.2 .593 1970 Unknown [id number] 2.16.840.1.983648.3.579.2 .593 1970 Unknown [id number] 2.16.840.1.259709.3.579.2 .593 1970 Unknown [id number] 2.16.840.1.254554.3.579.2 .593 1970 Unknown [id number] 2.16.840.1.812626.3.579.2 .593 1970 Unknown [id number] 2.16.840.1.043271.3.579.2 .593 1970 Unknown [id number] 2.16.840.1.173639.3.579.2 .593 1970 Unknown [id number] 2.16.840.1.292093.3.579.2 .593 1970 Unknown [id number] 2.16.840.1.100102.3.579.2 .593 1970 Unknown [id number] 2.16.840.1.377482.3.579.2 .593 1970 Unknown [id number] 2.16.840.1.572065.3.579.2 .593 1970 Unknown [id number] 2.16.840.1.632529.3.579.2 .593 1970 Unknown [id number] 2.16.840.1.254450.3.579.2 .356 1970 Unknown [id number] 2.16.840.1.289879.3.579.2 .356 1970 Unknown [id number] 2.16.840.1.273623.3.579.2 .1286 1970 Unknown [id number] 2.16.840.1.286343.3.579.2 .1286 1970 Unknown [id number] 2.16.840.1.905856.3.579.2 .1286 1970 Unknown [id number] 2.16.840.1.242072.3.579.2 .1286 1970 Unknown [id number] 2.16.840.1.779559.3.579.2 .727 1970 Unknown [id number] 2.16.840.1.610308.3.579.2 .727 1970 Unknown [id number] 2.16.840.1.725076.3.579.2 .727 1970 Unknown [id number] 2.16.840.1.515115.3.579.2 .727 1970 Unknown [id number] 2.16.840.1.043195.3.579.2 .1259 1970 Unknown [id number] 2.16.840.1.374829.3.579.2 .1259 1970 Unknown [id number] 2.16.840.1.054650.3.579.2 .176 1959 Medicaid [id number] 1959 Self-pay [id number] 1959 Unknown [id number] 1959 Unknown [id number] Medicare Medicare [id number] Medicare Medicare [id number] Unknown [id number] 2.16.840.1.524490.3.579.2 .531 Unknown [id number] 2.16.840.1.472597.3.579.2 .531 Worker's Compensation [employer] Misc [id number] Social History Date Type Detail Facility Start: 12-03-2021 End: 08-15-2024 Tobacco smoking status Ex-smoker (finding) [facility] Start: 08-12-2020 End: 08-17-2024 Sex Assigned At Female [facility] Tobacco smoking status Never [facility] Start: 1970 Sex Assigned At Female [facility] End: 09-05-2011 History of tobacco use Current smoker [facility] Work Phone: End: 09-05-2011 History of tobacco use Cigarette Smoker [facility] Work Phone: Start: 04-28-2018 End: 08-15-2024 Tobacco use and exposure Smokeless tobacco non-user [facility] Work Phone: Start: 04-28-2018 End: 08-17-2024 Alcohol intake Current drinker of alcohol (finding) [facility] Start: 08-12-2020 End: 08-17-2024 History of Social function [facility] Start: 04-28-2018 End: 05-06-2023 Tobacco Comment still smokes [facility] Start: 04-28-2018 Alcohol Comment social [facility] Start: 1970 Sex Assigned At Not on file [facility] Start: 07-14-2023 Alcohol intake Ex-drinker (finding) [facility] Start: 06-08-2024 Tobacco smoking stat [facility] Never smoked tobacco [facility] Start: 07-13-2024 Alcoholic beverage intake Lifetime non-drinker (finding) [facility] Start: 08-15-2024 Alcohol Comment Rare [facility] Health Goals Date Patient Goal Desired Activity /State Functional Status Date Assessment Result Facility 02-16-2024 Functional Status N/A [facility] 02-19-2023 Functional Status N/A [facility] 07-22-2022 Functional Status N/A [facility] 04-14-2022 Functional Status N/A [facility] Clinical Notes 12-02-2021 to 08-17-2024 Discharge Puneet Hodge MD - 07/13/2024 11:10 AM Porsche Hodge MD - 06/20/2024 10:50 AM EDT Note Date & Type Note Facility 08-17-2024 Hospital Discharg e instructions Larisa Jean RN - 08/17/2024 1:26 PM EST Sedation or General Anesthesia, Adult Care After Refer to this sheet in the next 24 hours. These instructions provide you with information on caring for yourself after your procedure. Your caregiver may also give you more specific instructions. Your treatment has been planned according to current medical practices, but problems sometimes occur. Call your caregiver if you have any problems or questions after your procedure. HOME CARE INSTRUCTIONS Do not participate in any activities that require you to be alert or coordinated. Do not: Drive. Swim. Ride a bicycle. Operate heavy machinery. Cook. Use power tools. Climb ladders. Work at heights. Take a bath. Do not drink alcohol. Do not make any important decisions or sign legal documents. Stay with an adult. The first meal following your procedure should be light and small. Avoid solid foods if you feel sick to your stomach (nauseous) or if you throw up (vomit). Drink enough fluids to keep your urine clear or pale yellow. Only take your usual medicines or new medicines if your caregiver approves them. Only take [id number] or prescription medicines for pain, discomfort, or fever as directed by your caregiver. Keep all follow-up appointments as directed by your caregiver. SEEK IMMEDIATE MEDICAL CARE IF: You are not feeling normal or behaving normally after 24 hours. You have persistent nausea and vomiting. You are unable to drink fluids or eat food. You have difficulty urinating. You have difficulty breathing or speaking. You have blue or cummings skin. There is difficulty waking or you cannot be woken up. You have heavy bleeding, redness, or a lot of swelling where the sedative or anesthesia entered your skin (intravenous site). You have a rash. MAKE SURE YOU: Understand these instructions. Will watch your condition. Will get help right away if you are not doing well or get worse. Document Released: 08/22/2006 Document Revised: 02/20/2013 Document Reviewed: 12/20/2012 [facility] Patient Information 2013 [place] .EGD DISCHARGE INSTRUCTIONS Activity: Rest today. No driving, operating machinery, or making any important decisions today. May resume normal activity tomorrow. Diet: Following EGD eat slowly, chew food well, cut food into small pieces-Avoid greasy, spicy, crunchy foods X 48 hours. Call your Doctor if you have any of the following: -Passing blood rectally or vomiting blood (it may be red or black). -Persistent nausea/vomiting -Severe abdominal or chest pain not relieved with passing gas -Fever of 100 degrees or more -Redness or swelling at the IV site -Severe sore throat or neck pain documented in this encounter [facility] 07-13-2024 History of Presen t illness Narrative Constantino Cardoso is a 54 y.o. female No ref. provider found presents with chief complaint of Hypoglycemia HPI: IM :07/2024 Follow up Visit 07/13/2024, insulin 5.6 ( 2-24), pro insulin 4 (0-10), liver enzyme within normal limits, alkaline phosphatase mildly high 144 ( 44-121), and we gave her CGM 1 is working, and another does not, and she said had 1 time blood sugar in range 40 HPI: 06/2024 New patient sent from Judi [...] SUBJECTIVE: MEDICATIONS: Current Outpatient Medications Medication Instructions acarbose (PRECOSE) 25 mg, Oral, 2 times daily cholecalciferol (Vitamin D-3) 50 MCG (1999) capsule [...] break Lab Results Component Value Date HGBA1C 5.6 07/13/2024 HGBA1C 5.8 06/20/2024 Lab Results Component Value Date GLU 90 07/13/2024 GLU 90 06/29/2024 GLU 101 06/20/2024 Visit Vitals BP 116/70 Pulse 68 Comment: 02 SAT 96% Resp 16 Ht 5' 7 Wt 188 lb BMI 29.44 kg/m Smoking Status Former BSA 2.01 m Physical Exam Constitutional: Appearance: Normal appearance. [...] and all orders for this visit: Hypoglycemia Insulin proinsulin within normal limits, C-peptide not done, no endogenous hyperinsulinemia, I will start her on acarbose empiric treatment 25 mg twice a day before breakfast and dinner, and see how she is doing clinically, and we will see her in 3 months. Encounter for dietary consultation Diet and exercise reviewed with the patient since Diet and exercise reviewed with the patient Follow up in about 3 months (around 10/13/2024). documented in this encounter [facility] 06-20-2024 History of Presen t illness Narrative Constantino Cardoso is a 54 [...] weeks (around 07/11/2024). documented in this encounter [facility] 05-14-2024 Note [facility] Note Reason for cardiology [...] to vasovagal r (more content not included)... [facility] 05-11-2024 Procedure note [facility] 04-26-2024 Evaluation note Authored April 26, 2024 [...] twice or three times daily if needed. [facility] Work Phone: 1(645) 797-958207-15-2024 [facility] Reason for [...] valve prolapse, and NSVT (nonsustained ventricular tachycardia) ([facility]). Surgical History She has a past surgical [...] hiatal hernia and acid (more content not included)...[facility] 02-16-2024 Evaluation + Plan note Diagnostic Tests Pending * Urine Culture 02/16/24 [facility] Reason for [...] valve prolapse, and NSVT (nonsustained ventricular tachycardia) ([facility]). Surgical History She has a past surgical [...] 04/30/2019 PROT 6.3 08/ (more content not included)...[facility] 08-25-2023 NoteHNO ID: [id number] Author: Ellis Mayberry DO Service: ? Author Type: Resident Type: Anesthesia Procedure Notes Filed: 08/25/2023 2:59 PM Note Text: ANESTHESIOLOGY PROCEDURE NOTE Airway General Information Procedure Start Time/Medication Administration: 08/25/2023 2:54 PM Patient location during procedure: OR Timeout Performed Pre-procedure: timeout performed Consent Obtained: Yes Patient identity confirmed: arm band and patient Staffing Resident: Ellis Mabyerry DO Performed by: resident Indications and Patient [...] August 25, 2023 TIME: 2:59 PM CSN: [id number] Patient Name: Constantino Cardoso Procedure Date: 08/25/2023 2:38 PM Date of : 1970 Admit Type: Outpatient Age: 53 Gender: Female Note Status: Finalized Attending MD: Marques Bradley MD, [id number] Procedure: Upper GI endoscopy Indications: Gastroparesis- for [...] the patient. Procedure Code(s): --- Professional --- 45391 Diagnosis Code(s): --- Professional --- K44.9 Z98.890 CPT copyright 2020 [employer]. All rights reserved. Attending Participation: I personally performed the entire procedure. Scope In: 2:59:10 PM Scope Out: 3:37:20 PM MD Marques Rainey MD 08/25/2023 3:41:00 PM This report has been signed electronically by Marques Bradley MD Number of Addenda: 0 Note Initiated On: 08/25/2023 2:38 [facility]11-24-2023 Note HNO ID: [id number] Author: Evelyn Black RN Service: ? Author Type: Registered Nurse Type: Progress Notes Filed: 07/29/2023 11:18 AM Note Text: [facility]11-24-2023 History of Present illness Narrative* Evelyn Black, RN - 07/29/2023 11:17 AM EST e documented [facility]11-17-2023 Instructions* Patient Instructions* Melissa Montalvo RD - [...] High Protein, Atkins, Boost Glucose Control, Owyn, [place] Breakfast Essentials Light Start mixed with Fairlife fat free or 1% milk. -Check www.bariatricfusion.com or www.[facility].com for additional options. Take small bites, eat slowly, chew food well, and always eat protein first. Separate eating and drinking by 30 min before and after. Aim for >64 oz water/day. Take small sips and avoid straws. Liquids should be sugar-free, no calories, no carbonation, no caffeine. Protein juarez (jdvmakw2z, Isopure, Gatorade protein), electrolyte drinks (Gatorade or Powerade zero, sugar free liquid IV or Drip Drop), sugar free jello and sugarfree popsicles are also acceptable. Nutrition Monitoring & Evaluation: increase PO intake >75% of estimated needs, weight check and patient update Need for Follow up: based on surgery status documented in this encounterParkview Health11-17-2023 NoteHNO ID: [id number] Author: Melissa Montalvo RD Service: ? Author Type: Registered Dietitian Type: Progress Notes Filed: 07/22/2023 4:06 PM Note Text: [facility]: Virtual Consult - Initial Assessment I have communicated my name and active licensure. The patient?s identity and physical location were verified at the time of this visit. Either the patient or their legal mortician supplies sales representative has been informed of [...] High Protein, Atkins, Boost Glucose Control, Owyn, [place] Breakfast Essentials Light Start mixed with Fairlife [...] calories, no carbonation, no caffeine. 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 Otto body weight: 159 lbs. 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 Recommendation was a GPOEM. Will consult with surgeon next week regarding next POC for pt. Pt VU. documented in this encounterParkview Health11-17-2023 History of Present illness Narrative* Melissa Montalvo RD - 07/22/2023 1:15 PM EST [facility] Nutrition Therapy: Virtual Consult - Initial Assessment I have communicated my name and active licensure. The patient s identity and physical location wereverified at the time of this visit. Either the patient or their legal mortician supplies sales representative has been informed of [...] High Protein, Atkins, Boost Glucose Control, Owyn, [place] Breakfast Essentials Light Start mixed with Fairlife fat free or 1% milk. -Check www.bariatricfusion.com or www.[facility].Perpetuall for additional options. Take small bites, eat slowly, chew food well, and always eat protein first. Separate eating and drinking by 30 min before and after. Aim for >64 oz water/day. Take small sips and avoid straws. Liquids should be sugar-free, no calories, no carbonation, no caffeine. Protein juarez (tkcsnse3d, Isopure, Gatorade protein), electrolyte drinks (Gatorade or [...] significant for adult onset weight gain (maintains [id number] lbs, highest 220 lbs in 2018). 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 Otto body weight: 159 lbs. 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 Procedure Code(s): --- Professional --- 86300 Diagnosis Code(s): --- Professional --- K44.9 K31.89 Z98.890 R10.13 CPT copyright 2020 [employer]. All rights reserved. Attending Participation: I personally performed the entire procedure. Scope In: 10:40:19 AM Scope Out: 10:50:37 AM MD Marques Rainey MD 07/14/2023 10:53:09 AM This report has been signed electronically by Marques Bradley MD Number of Addenda: 0 Note Initiated On: 07/14/2023 10:24 [facility]11-09-2023 Nurse Note* Mónica Spaulding RN - [...] RN In Department: GASTROENTEROLOGY documented in this encounterParkview Health11-08-2023 NoteHNO ID: [id number] Author: Brennen Shaw, PhD Service: ? Author Type: Physician Type: Progress Notes Filed: 07/19/2023 10:07 AM Note Text: [facility] BARIATR[facility] SURGERY BEHAVIORAL HEALTH EVALUATION DATE OF SERVICE: July 13, 2023 TIME OF SERVICE: 2:10 PM-3:29 PM COST CENTER: 3[facility] CPT CODE: - 16839 Brief Emotional/Behavioral Assessment with scoring/documentation - [id number] Virtual Psych Diagnostic Eval BILLING CODE: ENDO PSYL MAIN 43081/Marco DATE OF FIRST SERVICE THIS CYCLE: July 13, 2023 SESSION #: 1 BMI Surgical Pathway Visit type: Bariatric Surgeon Visit I have communicated my name and active licensure. The patient's identity and physical location were verified at the time of this visit. Either the patient or their legal mortician supplies sales representative has been informed of [...] during the binge episod (more content not included)...[facility] Miscellaneous Notes* Telephone Encounter - Evelyn [...] Pt agreed with plan. documented in this encounterParkview Health09-21-2023 NoteHNO ID: [id number] Author: Nabil Bell RT(R) Service: Nuclear Medicine [...] 715 PATIENT DISCHARGED TO: Ambulatory patient, left IN department area. A Diagnostic radioactive procedure has taken place, with no further precautions necessary other than routine body substance precautions. More information regarding radiation safety can be found using this link: [email or web address] SIGNATURE: RT Charmaine(R) PATIENT NAME: Constantino Cardoso DATE: May 26, 2023 TIME: 7:17 AM PAGER/CONTACT #:[facility]09-20-[facility]23 NoteHNO ID: [id number] Author: Pedro Gonzalez LPN Service: ? Author Type: LICENSED NURSE Type: Progress Notes Filed: 05/25/2023 4:15 PM Note Text: Name: Constantino Cardoso [facility]#: [id number] Date: 05/25/2023 ESOPHAGEAL MANOMETRY TEST Indication: Nausea [...] patient tolerated the test without difficulty. .[facility] History of Present illness Narrative* Pedro Gonzalez LPN - 05/25/2023 3:55 PM EDT Name: Constantino Cardoso [facility]#: [id number] Date: 05/25/2023 ESOPHAGEAL MANOMETRY TEST Indication: Nausea [...] difficulty. .Pedro Gonzalez LPN documented in this encounterParkview Health09-11-2023 Miscellaneous Notes* Telephone Encounter - Evelyn Black [...] after a gastric bypass. documented in this encounterParkview Health09-01-2023 NoteHNO ID: [id number] Author: Marques rBadley MD Service: ? Author Type: Physician Type: [...] for internal providers or letter via the [employer] for external providers. Chief Complaint: [...] Marques Bradley MD Date: 05/12/2023 Time: 8:15 [facility]08-28-2023 Miscellaneous Notes* Telephone Encounter - Evelyn Black RN - 05/02/2023 9:12 AM EDT [facility] SPECIALTY CARE COORDINATION TELEPHONE ENCOUNTER Chief complaint & duration dysphagia. Type of procedure: hernia repair hiatal with Dr. MORTENSEN in [place] February of 2019. Sending OP notes Nursing assessment (subjective/objective) . pain in chest area and getting worse Went to [place] ED March 2023 who told her she needed a stent in her heart..but her c/o were difficulty swallowing and sent pt home and referred her to [facility] and was there in the hospital for [...] appt after records obtained documented in this encounterParkview Health08-22-2023 Miscellaneous Notes* Telephone Encounter - Evelyn Black RN - 04/26/2023 2:00 PM EDT [facility] SPECIALTY CARE COORDINATION TELEPHONE ENCOUNTER Second attempt to contact this pt. Pt has upcoming information, and unable to complete any chart prep, history, symptoms, testing etc. LVM and call back number. documented in this encounterParkview Health08-17-2023 Evaluation note* Encounter Date Diagnosis Assessment Notes Treatment Notes Treatment Clinical Notes Apr, Esophageal dysmotility (ICD-10 - K22.4) Apr, Esophageal spasm (ICD-10 - K22.4) Apr, Nausea & vomiting (ICD-10 - R11.2) Alec reports that she still has nausea but no vomiting Patient reports that she is to see Dr. Strong at [facility] Patient is to start dicyclomine 20 mg 4 times daily sent to [facility] today RTO 6 weeks Apr, Dysphagia (ICD-10 - R13.10) [facility] Other 08-14-2023 Miscellaneous Notes* Telephone Encounter - Evelyn Black RN - 04/18/2023 2:13 PM EDT BMI SPECIALTY CARE COORDINATION TELEPHONE ENCOUNTER Contacted pt regarding a referral from Dr Martinez's office. LVM and call back number. documented in this encounterParkview Health08-03-2023 Miscellaneous Notes* Telephone Encounter - Yanyc Lopez - 04/07/2023 1:15 PM EDT Referral rec'd documented in this encounterParkview Health06-17-2023 Evaluation + Plan note Extracted from: Title:ED [...] pain, # 20 tab(s), Refills(s) 0, Pharmacy: [id number], 170, cm, 02/19/23 0:56:00 EDT, Height/Length Dosing, 90.2, kg, 02/19/23 0:56:00 EDT, Weight Dosing XR Elbow 3+ Views Right XR Wrist 3+ Views Right [facility]06-17-2023 Hospital Discharge instructions Patient Education [...] are safe for you. General instructions Take wuoa-mwq-rnhqusz and prescription medicines only as told by [...] provider. Document Revised: 12/29/2020 Document Reviewed: 12/29/2020 [employer] Patient Education 2022 Art[employer] It. Follow Up Care 02/19/2023 00:51:16 With:JUDI YOUSSEF Address: [address] [place] [phone] Business (1) When:02/22/2023 Comments:Take the pain medication as prescribed as needed for pain. Please follow-up with your primary care doctor in the next 2 to 3 days for further evaluation management. Please return to the ED for any new or worsening symptoms or [facility]08-10-2022 Hospital Discharge instructions Patient Education [...] water added (diluted fruit juice). Eat bland, xsce-ot-ymvoxo foods in small amounts as you are able. These foods include bananas, applesauce, rice, lean meats, toast, and crackers. Avoid fluids that contain a lot of sugar or caffeine, such as energy drinks, sports drinks, and soda. Avoid alcohol. Avoid spicy or fatty foods. General instructions Take qpxg-dcp-bifcppm and prescription medicines only as told by your health care provider. Drink enough fluid to keep your urine pale yellow. Wash your hands often using soap and water. If soap and water are not available, use hand cabinet maker. Make sure that all people in [...] eating and drinking to prevent dehydration. Take fdmx-vkv-rfukfxz and prescription medicines only as told by [...] 08/22/2006 Document Revised: 12/14/2019 Document Reviewed: 01/30/2019 [employer] Patient Education 2019 Art[employer] It. Follow Up Care 01/28/2022 13:58:23 With:Monique Marquez CNP Address: When:3 months [facility] 05-26-2022 Hospital Discharge instructions [...] drinks. ?Tomatoes and foods made with tomatoes. ?[place] or spicy foods. ?Chocolate and peppermint. Do not drink alcohol. General instructions Take msyl-nca-sggytls and prescription medicines only as told by [...] 11/11/2004 Document Revised: 12/18/2018 Document Reviewed: 12/18/2018 [employer] Patient Education 2020 Art[employer] It. Follow Up Care 01/13/2022 12:36:01 With:Monique Marquez CNP Address: When:3 months [facility] 05-09-2022 Hospital Discharge instructions Patient Education 01/11/2022 09:56:58 Endoscopy, Care After Procedure [facility] Endoscopy Care After Procedure Please read [...] blood. Document Released: 04/05/2005 Document Re-Released: 02/13/2007 [employer] Patient Information enStage. 01/11/2022 09:56:58 Pearce's Esophagus Pearce's Esophagus Pearce's [...] drinks. ?Tomatoes and foods made with tomatoes. ?[place] or spicy foods. ?Chocolate and peppermint. Do not drink alcohol. General instructions Take ywyg-sho-lhffqmq and prescription medicines only as told by [...] 11/11/2004 Document Revised: 12/18/2018 Document Reviewed: 12/18/2018 [employer] Patient Education 2020 [employer] Follow Up Care 12/03/2021 15:32:26 With:Anai FORBES Address: [address] [place] [address] Business (1) When:1 to 2 weeks Comments:Call for any problems. [facility]03-30-2022 Hospital Discharge instructions Follow Up Care 12/02/2021 10:32:32 With:ABAD SWARTZ, JHOANA Castro, URL Address: [address] [place] [address] When: Unknown [facility] Evaluation + Plan note Future Appointments Appointment Date:01/11/2022 09:40:00 AM Scheduled Provider: Location:[facility] Appointment Type:Surgery FT [facility] Evaluation + Plan note Future Appointments Appointment Date:04/14/2022 03:00:00 PM Scheduled Provider:Monique Marquez CNP Location[facility] Appointment Type:[facility] Follow Up Future Scheduled Tests Radiology* NM Gastric Emptying Study 01/28/22 [facility] Evaluation + Plan note Future Appointments Appointment Date:04/14/2022 03:00:00 PM Scheduled Provider:Monique Marquez CNP Location:[facility] Appointment Type:[facility] Future Appointments Appointment Date:04/20/2022 12:00:00 PM Scheduled Provider: Location:.[facility] Appointment Type:US Abdominal/Pelvis (FT) Appointment Date:06/02/2022 09:45:00 AM Scheduled Provider:Anai FORBES MD Location:[facility] Appointment Type:[facility] Follow Up Future Scheduled Tests Laboratory* Fecal WBC Lactoferrin 04/14/22 * Giardia lamblia, Direct Detection EIA 04/14/22 * O & P Exam, Routine 04/14/22 * Clostridium difficile by PCR 04/14/22 * Enteric Panel by PCR 04/14/22 * CBC w/ Auto Diff 04/14/22 * Comprehensive Metabolic Panel 04/14/22 Radiology* US Abdomen Complete 04/20/22 [facility] Evaluation + Plan note Future Appointments Appointment Date:06/02/2022 09:45:00 AM Scheduled Provider:Anai FORBES MD Location:[facility] Appointment Type:[facility] Follow Up Diagnostic Tests Pending * O & P Exam, Routine 04/29/22 * Giardia lamblia, Direct Detection EIA 04/29/22 [facility] assessment information available [facility] Work Phone: Evaluation noteNo InformationNosullivan county memorial hospital OutSystems Other Evaluation note* Diagnosis Nausea- Primary Nausea alone Dysphagia, unspecified type documented in this encounter [facility]* Diagnosis Nausea Nausea alone [facility] this [facility]* Diagnosis Dysphagia, unspecified type Gastroparesis History of Pricilla fundoplication Personal history of surgery to other organs documented in this encounter [facility]* Diagnosis Gastroparesis- Primary Malnutrition of moderate degree (HCC) Malnutrition of moderate degree Gastro-esophageal reflux disease without esophagitis Esophageal reflux Overweight (BMI 25.0-29.9) Overweight Dietary counseling and surveillance Dietary surveillance and counseling documented in this encounter [facility]* Diagnosis Gastroparesis- Primary documented in this encounter [facility]* Diagnosis Onset Date Resolution Status Abdominal adhesions acute Dysphagia acute Small bowel obstruction acut e [facility] Work Phone: Evaluation note* Diagnosis Hypoglycemia- Primary Hypoglycemia, unspecified Encounter for dietary consultation [facility]* Diagnosis Hypoglycemia Hypoglycemia, unspecified [facility] this [facility]* Diagnosis Other dysphagia- Primary Other dysphagia documented in this encounter [facility] Renee Lo HealthHistory and physical note Author Jennie Ayon [facility] May 11, 2024 10:16am Note Date/Time May 11, 2024 10:16am [facility] [address] [place] [address] Gastroenterology H&P Signed Patient: Constantino Cardoso MR#: [id number] : 1970 Acct:[id number] Age/Sex: 53 / F Adm Date: 4 Loc: Room: Type: [facility] Attending Dr: Jennie Ayon MD [...] signed by Jennie Ayon MD> 05/11/[address] [facility] Work Phone: History general Narrative - Reported* Type Description Date Medical History mitral valve prolapse Medical History gallstones Medical History Acid reflux Medical History Hiatal Hernia Medical History headache Surgical History hysterectomy Surgical History cholecystectomy Surgical History hiatal hernia repair Hospitalization History see above Hospitalization History kindey infections hospit alized x3 [facility] Other Hospital course Narrative No data available for this section [facility] Discharge instructions No data available for this section [facility] Additional Instructions Follow-up with your primary care doctor Return to ED if develop worsening symptoms or concernsMer[facility] Work Phone: Hospital Discharge instructions Additional Instructions If your symptoms return/worsen or you develop any further concerns or symptoms please see your doctor or return to the emergency department immediately. Please be sure to continue follow-up with the customer supply coordinator and with your scheduled EGD and further testing.[facility] Work Phone: Hospital Discharge instructions [...] problems. -Follow up with PCP. -Office number [phone]. [facility] Work Phone: Progress note No data available for this section [facility] (narrative)* Diagnostic Procedure Only (Routine) - Authorized Specialty Diagnoses / Procedures Referred By Eileen mueller Referred To Contact [facility]LECULAR [facility] FUNCTIONAL IMAGING Diagnoses Nausea Procedures NM GASTRIC EMPTYING SOLID GASTRIC EMPTYING STUDY Marques Bradley MD [address] [place] [address] Molecular & Functional Imaging [address] [place] [address] Referral ID Status Reason Start Date Expiration Date Visits Requested Visits Authorized [id number] Authorized Auto-Generat ed Referral 05/16/2023 06/14/2024 1 1 * Outpatient Procedure (Routine) - Authorized Specialty Diagnoses / Procedures Referred By Eileen mueller Referred To Contact [facility] Diagnoses Nausea Procedures MANOMETRY ESOPHAGEAL ESOPHAGEAL MOTILITY STUDY W/INTERP&RPT Marques Bradley MD [address] [place] [address] [facility] [place] [address] [place] [address] Referral ID Status Reason Start Date Expiration Date Visits Requested Visits Authorized [id number] Authorized Auto-Generat ed Referral 05/16/2023 05/16/2024 1 1 [facility] for referral (narrative)* Outpatient Procedure (Routine) - Closed Specialty Diagnoses / Procedures Referred By Contac t Referred To Contact [facility] [place] Diagnoses Dysphagia, unspecified type Gastroparesis History of Pricilla fundoplication Procedures EGD - THERAPEUTIC, EUS, OR TUBE INTERVENTIONS ESOPHAGOGASTRODUODENOSCOPY TRANSORAL DIAGNOSTIC STOMACH SURGERY PROCEDURE UNLISTED Marques Bradley MD [address] [place] [address] [address] Referral ID Status Reason Start Date Expiration Date V isits Requested Visits Authorized [id number] Closed Auto-Generate d Referral 05/27/2023 05/27/2024 1 1 [facility] for referral (narrative)* Outpatient Procedure (Routine) - Authorized Specialty Diagnoses / Procedures Referred By Contac t Referred To Contact [facility] Diagnoses Gastroparesis Procedures EGD - THERAPEUTIC, EUS, OR TUBE INTERVENTIONS ESOPHAGOGASTRODUODENOSC OPY TRANSORAL DIAGNOSTIC STOMACH SURGERY PROCEDURE UNLISTED Marques Bradley MD [address] [place] [address] [address] Referral ID Status Reason Start Date Expiration Date Visits Requested Visits Authorized [id number] Authorized Auto-Generat ed Referral 3 07/29/2024 1 1 [facility] for visit Narrative* Outpatient Procedure (Routine) - Closed Specialty Diagnoses / Procedures Referred By Contac t Referred To Contact [facility] [place] Diagnoses Dysphagia, unspecified type Gastroparesis History of Pricilla fundoplication Procedures EGD - THERAPEUTIC, EUS, OR TUBE INTERVENTIONS ESOPHAGOGASTRODUODENOSCOPY TRANSORAL DIAGNOSTIC STOMACH SURGERY PROCEDURE UNLISTED Marques Bradley MD [address] [place] [address] [facility] [address] [place] [address] Referral ID Status Reason Start Date Expiration Date V isits Requested Visits Authorized [id number] Closed Auto-Generate d Referral 05/27/2023 05/27/2024 1 1 [facility] Summary Purpose Family History No Family History [...] Time Advance Directives No November 23, 018 10:23am Hospital Course Note MR#: [id number] I [facility] Pt. Name: Constantino Cardoso Admitted: 08/13/2019 [...] a 49-year-old female, who was transferred to [facility] from [facility] with acute abdominal pain. The pain has started on Tuesday while at work. 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 The pain feels similar to when she was here in April during her stay. During that time, she was told there was nothing left for Dr. Mortensen to do and she has been following up with GI specialist in [place]. She is actually due to have an [...] Visit Abdominal adhesions Dysphagia Small bowel obstruction Reason for Referral Specialty Diagnoses / Procedures Referred By Eileen mueller Referred To Contact Radiology Diagnoses Other dysphagia Procedures FL MODIFIED BARIUM SWALLOW W VIDEO Justin Lucero MD [address] [place] [address] Referral ID Status Reason Start Date Expiration Date Visits Re quested Visits Authorized [id number] Open 08/17/2024 08/17/2025 1 1 Additional Source Comments INFORMATION SOURCE (unrecogn ized section and content) DATE CREATED AUTHOR 06/03/2020 [facility] DATE CREATED AUTHOR AUTHOR'S ORGANIZ ATION 01/17/2023 [facility] DATE CREATED AUTHOR AUTHOR'S ORGANIZ ATION 04/02/2023 [facility] DATE CREATED AUTHOR AUTHOR'S ORGANIZ ATION 08/26/2023 [facility] DATE CREATED AUTHOR AUTHOR'S ORGANIZ ATION 12/03/2023 [facility] DATE CREATED AUTHOR AUTHOR'S ORGANIZ ATION 02/17/[address] [facility] DATE CREATED AUTHOR AUTHOR'S ORGANIZ ATION 02/19/2024 [facility] DATE CREATED AUTHOR AUTHOR'S ORGANIZ ATION 04/10/2024 [facility] DATE CREATED AUTHOR AUTHOR'S ORGANIZ ATION 05/14/2024 [facility] DATE CREATED AUTHOR AUTHOR'S ORGANIZ ATION 06/09/2024 [facility] DATE CREATED AUTHOR AUTHOR'S ORGANIZ ATION 06/21/2024 [facility] DATE CREATED AUTHOR AUTHOR'S ORGANIZ ATION 07/15/2024 [facility] DATE CREATED AUTHOR AUTHOR'S ORGANIZ ATION 08/19/2024 [facility] Care Team (unrecognized sect ion and content) Team Status: Active Member Role Status Dates Judi Youssef FRUIT [employer]YER-C Primary Care Provider Active Team Status: Active Member Role Status Dates Judi Youssef FRUIT DRYER-C Primary Care Provider Active Start: April 13, 2024 Juarez Cruz DO Attending Provider Active Sta rt: April 13, 2024 Team Status: Inactive Member Role Status Dates Judi Youssef FR[employer]YER-C Primary Care Provider Active Start: April 26, 2024 End: April 26, 2024 Jennie Ayon MD Attending Provider Active Start: April 26, 2024 End: April 26, 2024 Team Status: Inactive Member Role Status Dates Judi Youssef FR[employer]YER-C Primary Care Provider Active Start: May 11, 2024 End: May 11, 2024 Jennie Ayon MD Attending Provider Active Start: May 11, 2024 End: May 11, 2024 Team Status: Active Member Role Status Dates Judi Youssef FR[employer]ER-C Primary Care Provider Active Start: May 11, 2024 Jennie Ayon MD Attending Provider, Other Provider Active Start: May 11, 2024 Team Status: Inactive Member Role Status Dates Judi Youssef [employer]-C Primary Care Provider Active Start: June 19, 2024 End: June 19, 2024 Jennie Ayon MD Attending Provider Active Start: June 19, 2024 End: June 19, 2024 Team Status: Inactive Member Role Status Dates Judi Youssef FR[employer]ER-C Primary Care Provider Active Conner Griffith DO Emergency Provider Active Team Status: Inactive Member Role Status Dates Jennie Ayon MD Attending Provider Active Judi Youssef [employer]C Primary Care Provider Active Team Status: Inactive Member Role Status Dates Judi Youssef [employer]-C Primary Care Provider Active Pete Thakkar DO Emergency Provider Active [employer] Relationship Specialty Start Date End Date Joel Alejandra PCP - General Family Medicine 04/26/18 Rafa Rangel [address] [place] [phone] Referring General Surgery 04/26/18 [employer] Relationship Specialty Start Date End Date Joel Alejandra PCP - General Family Medicine 04/26/18 Rafa Rangel [address] [place] [phone] Referring General Surgery 04/26/18 [employer] Relationship Specialty Start Date End Date Joel Alejandra PCP - General Family Medicine 04/26/18 Rafa Rangel [address] [place] [phone] Referring General Surgery 04/26/18 [employer] Relationship Specialty Start Date End Date Joel Alejandra PCP - General Family Medicine 04/26/18 Rafa Rangel [address] [place] [address] [address] [place] [phone] Referring General Surgery 04/26/18 [employer] Relationship Specialty Start Date End Date Joel Alejandra PCP - General Family Medicine 04/26/18 Rafa Rangel [address] [facility] [address] [place] [phone] Referring General Surgery 04/26/18 [employer] Relationship Specialty Start Date End Date Joel Alejandra PCP - General Family Medicine 04/26/18 Rafa Rangel [address] [place] [address] Referring General Surgery 04/26/18 [employer] Relationship Specialty Start Date End Date Joel Alejandra PCP - General Family Medicine 04/26/18 Rafa Rangel [address] [place] [address] Referring General Surgery 04/26/18 [employer] Relationship Specialty Start Date End Date Joel Alejandra PCP - General Family Medicine 04/26/18 Rafa Rangel [address] [place] [address] Referring General Surgery 04/26/18 [employer] Relationship Specialty Start Date End Date Joel Alejandra PCP - General Family Medicine 04/26/18 Rafa Rangel [address] [place] [phone] Referring General Surgery 04/26/18 [employer] Relationship Specialty Start Date End Date Joel Alejandra PCP - General Family Medicine 04/26/18 Rafa Rangel [address] [place] [phone] Referring General Surgery 04/26/18 [employer] Relationship Specialty Start Date End Date Joel Alejandra PCP - General Family Medicine 04/26/18 Rafa Rangel [address] [place] [phone] Referring General Surgery 04/26/18 [employer] Relationship Specialty Start Date End Date Unallocated, Miracle Jesus MD [address] [place], [place] [address] [address] PCP - General 04/25/23 Judi Youssef MD [address] [place] [address] Referring Physician Family Medicine 04/25/23 [employer] Relationship Specialty Start Date End Date Unallocated, Miracle Jesus MD [address] [place], [place] [address] [address] PCP - General 04/25/23 Judi Youssef MD [address] [place] [address] Referring Physician Family Medicine 04/25/23 [employer] Relationship Specialty Start Date End Date Unallocated, Miracle Jesus MD [facility] [place] [address] PCP - General 04/25/23 Judi Youssef MD [address] [place] [address] Referring Physician Family Medicine 04/25/23 [employer] Relationship Specialty Start Date End Date Unallocated, Miracle Jesus MD [facility] [place] [address] PCP - General 04/25/23 Judi Youssef MD [facility] [place] [address] Referring Physician Family Medicine 04/25/23 [employer] Relationship Specialty Start Date End Date No, Pcp PCP - General 08/17/24 Goals (unrecognized section and content) Goals may be documented in a n alternate section REASON FOR VISIT (unrecogniz ed section and content) Reason Comments 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 Reason Onset Date Comments Procedure 05/25/2023 Manometry Esopha geal Specialty Diagnoses / Procedures Referred By Eileen mueller Referred To Contact DIGESTIVE DISEASE [place] Diagnoses Nausea Procedures MANOMETRY ESOPHAGEAL ESOPHAGEAL MOTILITY STUDY W/INTERP&RPT Marques Bradley MD [address] [place] [address] [place] [address] Referral ID Status Reason Start Date Expiration Date V isits Requested Visits Authorized [id number] Closed Auto-Generate d Referral 05/16/2023 05/16/2024 1 1 Reason Comments Results Reason Comments Patient Education Assessment Reason Comments Hypoglycemia NEW Reason Comments Hypoglycemia Specialty Diagnoses / Procedures Referred By Eileen mueller Referred To Contact Diagnoses Other dysphagia Other dysphagia [R13.19] Procedures WV EGD TRANSORAL BIOPSY SINGLE/MULTIPLE WV ESOPHAGOGASTRODUODENOSCOPY TRANSORAL DIAGNOSTIC WV EGD BALLOON DILATION ESOPHAGUS <30 MM DIAM ESOPHAGOGASTRODUODENOSCOPY BIOPSY Justin Lucero MD [address] [facility] [address] [place] [address] [facility] [address] [place] [address] Referral ID Status Reason Start Date Expiration Date Visits Re quested Visits Authorized [id number] 1 1 Source Comments (unrecognize d section and content) In the event this informatio n is protected by the Federal Confidentiality of Alcohol and Drug Abuse Patient Records regulations: The Federal rules restrict any use of the information to criminally investigate or prosecute any alcohol or drug abuse patient.[facility] the event this information is protected by the Federal Confidentiality of Alcohol and Drug Abuse Patient Records regulations: The Federal rules restrict any use of the information to criminally investigate or prosecute any alcohol or drug abuse patient.[facility] HealthIn the event this information is protected by the Federal Confidentiality of Alcohol and Drug Abuse Patient Records regulations: The Federal rules restrict any use of the information to criminally investigate or prosecute any alcohol or drug abuse patient.[facility] Health[facility] the event this information is protected by the Federal Confidentiality of Alcohol and Drug Abuse Patient Records regulations: The Federal rules restrict any use of the information to criminally investigate or prosecute any alcohol or drug abuse patient.[facility] HealthIn the event this information is protected by the Federal Confidentiality of Alcohol and Drug Abuse Patient Records regulations: The Federal rules restrict any use of the information to criminally investigate or prosecute any alcohol or drug abuse patient.[facility] HealthIn the event this information is protected by the Federal Confidentiality of Alcohol and Drug Abuse Patient Records regulations: The Federal rules restrict any use of the information to criminally investigate or prosecute any alcohol or drug abuse patient.[facility] HealthIn the event this information is protected by the Federal Confidentiality of Alcohol and Drug Abuse Patient Records regulations: The Federal rules restrict any use of the information to criminally investigate or prosecute any alcohol or drug abuse patient.[facility] HealthIn the event this information is protected by the Federal Confidentiality of Alcohol and Drug Abuse Patient Records regulations: The Federal rules restrict any use of the information to criminally investigate or prosecute any alcohol or drug abuse patient.[facility] HealthIn the event this information is protected by the Federal Confidentiality of Alcohol and Drug Abuse Patient Records regulations: The Federal rules restrict any use of the information to criminally investigate or prosecute any alcohol or drug abuse patient.[facility] HealthIn the event this information is protected by the Federal Confidentiality of Alcohol and Drug Abuse Patient Records regulations: The Federal rules restrict any use of the information to criminally investigate or prosecute any alcohol or drug abuse patient.[facility] HealthIn the event this information is protected by the Federal Confidentiality of Alcohol and Drug Abuse Patient Records regulations: The Federal rules restrict any use of the information to criminally investigate or prosecute any alcohol or drug abuse patient.[facility] HealthIn the event this information is protected by the Federal Confidentiality of Alcohol and Drug Abuse Patient Records regulations: The Federal rules restrict any use of the information to criminally investigate or prosecute any alcohol or drug abuse patient.[facility] Scheduled Active and Recently Administ ered Medications (unrecognized section and content) Medication Order 08/15/2024 08/16/2024 08/17/2024 sodium chloride flush 0.9 % injection 5-40 mL 5-40 mL, IntraVENous, EVERY 12 HOURS SCHEDULED (2 times per day), First dose on Tue08/17/24 at 1145, Until Discontinued, For Line Patency: Peripheral IV = 5 mL; Midline or Central Line = 10 mL/lumen. If following IV push medication, administer flush at same rate as the IV push. Flush volume is determined by type of infusion therapy being given. For non-viscous solutions use: Peripheral IV = 5 mL Midline or Central Line = 10 mL/lumen For viscous solutions (i.e. blood components, parenteral nutrition, contrast media, or after obtaining blood sample) use: Peripheral IV = 10 mL Midline or Central Line = 20 mL/lumen, Pre-op (day of surgery) 1145 (Due)2100 (Due) Continuous Medication Order 08/15/2024 08/16/2024 08/17/2024 0.9 % sodium chloride infusion IntraVENous, at 125 mL/hr, CONTINUOUS, Starting on Tue08/17/24 at 1145, Pre-op (day of surgery) 1202 (New Bag - Prov ider: Kianna Lawson RN)1258 (Rate/Dose Change - Provider: Chung Renee APRN - SYSTEMS DEVELOPMENT CONSULTANT) PRN Medication Order 08/15/2024 08/16/2024 08/17/2024 0.9 % sodium chloride infusion IntraVENous, at 5-250 mL/hr, PRN, if patient receiving piggyback infusions and maintenance fluids are not ordered, Starting on Tue08/17/24 at 1120, For piggyback infusion, administer at same rate as piggyback for a total of 25 mL. Enter 25 mL into dose field and piggyback rate into rate field of order. If piggyback is infusing at a rate less than 100 mL/hr, enter 25 mL into dose field and 100 mL/hr into rate field of order., Pre-op (day of surgery) lidocaine PF 1 % injection 1 mL 1 mL, IntraDERmal, ONCE PRN, 1 dose, Starting on Tue08/17/24 at 1120, Until 12/14/24 at 1120, IV start, Pre-op (day of surgery) sodium chloride flush 0.9 % injection 5-40 mL 5-40 mL, IntraVENous, PRN, Starting on Tue08/17/24 at 1120, Until Discontinued, Line Care, After every IV line use, For Line Patency: Peripheral IV = 5 mL; Midline or Central Line = 10 mL/lumen. If following IV push medication, administer flush at same rate as the IV push. Flush volume is determined by type of infusion therapy being given. For non-viscous solutions use: Peripheral IV = 5 mL Midline or Central Line = 10 mL/lumen For viscous solutions (i.e. blood components, parenteral nutrition, contrast media, or after obtaining blood sample) use: Peripheral IV = 10 mL Midline or Central Line = 20 mL/lumen, Pre-op (day of surgery) FOR RECORDS PERTAINING TO PATIENTS WHO ARE [...] BE BASED ON THE PRIMARY CLINICAL RECORDS. [employer] provides no warranty or guarantee of the accuracy or completeness of information in this document.
--- NOTE | 2024-08-28 04:16 | ECG_ITS ---
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
--- NOTE | 2024-08-28 04:16 | XR_ITS ---
The [address] [address] Patient Name: CONSTANTINO CARDOSO MRN: [id number] date: 1970 Sex: F Assigned Patient Location: ER Current Patient Location: ER Accession/Order Number: [id number] Exam Date: 08/28/2024 04:28 Report Date: 08/28/2024 05:27 At the request of: ZEFERINO ARMAS Procedure: XR chest 1V SINGLE VIEW CHEST: 08/28/2024 4:28 AM EST CLINICAL HISTORY:CP COMPARISONS: None. TECHNIQUE: Single frontal view of the chest, utilizing portable technique. Portable radiography should be considered a technically compromised study. Strongly consider dedicated PA and lateral chest radiographs, as clinically indicated. FINDINGS: LINES AND TUBES: Cardiac monitoring leads and wires overlie the patient. CARDIAC SILHOUETTE: Within normal limits. MEDIASTINAL AND HILAR CONTOUR: Within normal limits. PULMONARY PARENCHYMA AND PLEURA: No consolidation, edema, effusion, or pneumothorax. OSSEOUS STRUCTURES:Nothing significant. OTHER COMMENTS:None. XR/XR chest 1V IMPRESSION: No acute findings. This report was generated with voice recognition software. Effort has been made to ensure accuracy of this report, however, occasional wording errors may persist. Please contact our office with any questions. Electronically authenticated by: MIHAI DE LA FUENTE Date: 08/28/2024 05:27
--- NOTE | 2024-08-28 04:16 | ED.GENADUL1 ---
HPI HPI - General Adult General Chief complaint: Nausea/Vomiting/Diarrhea Stated complaint: VOMITING, HIGH BLOOD PRESSURE, ABDOMINAL PAIN Time Seen by Provider: 08/28/24 04:03 Source: patient Mode of arrival: walk-in Limitations: no limitations History of Present Illness HPI narrative: 54-year-old female presents for elevated blood pressure and nausea and back pain and chest pain. This started about 45 minutes before coming into the emergency department while she was at work. She had one of the nurses who works there checked her blood pressure and it was high so she came here. No fever cough or vomiting and she felt fine earlier in the night. She is on blood pressure medicine and has not missed any doses. Nothing out of the ordinary happened tonight. Related Data Home Medications ?Medication ?Instructions ?Recorded ?Confirmed dicyclomine 20 mg tablet 20 mg PO QID 11/27/23 08/28/24 pantoprazole 40 mg tablet,delayed 40 mg PO DAILY 12/15/23 08/28/24 release cholecalciferol (vitamin D3) 50 50 mcg PO DAILY 04/13/24 08/28/24 mcg (2,000 unit) capsule lisinopril 10 mg tablet 10 mg PO DAILY 04/13/24 08/28/24 metoprolol succinate 50 mg 50 mg PO DAILY 04/13/24 08/28/24 tablet,extended release 24 hr sertraline 50 mg tablet 50 mg PO DAILY 04/13/24 08/28/24 Previous Rx's ?Medication ?Instructions ?Recorded ondansetron 4 mg disintegrating 4 mg PO Q8H PRN nausea and 04/13/24 tablet vomiting 3 days #10 tabs ibuprofen 800 mg tablet 800 mg PO Q8H PRN pain #20 tabs 06/24/24 Allergies Allergy/AdvReac Type Severity Reaction Status Date / Time cyclobenzaprine (From Allergy Severe Anaphylaxis Verified 08/28/24 04:16 Flexeril) Penicillins Allergy Intermediate Hives Verified 08/28/24 04:16 Opioid HPI Opioid Management Most Recent Opioid Data: Last Pain Scale 10 08/28/24 05:31 08/28/24 Last ED Pain Assessment 08/28/24 04:30 Last MAR Pain Assessment 08/28/24 05:31 Last ORT Total Score 0 11/27/23 09:50 11/27/23 Last ORT Risk Category Low Risk 11/27/23 09:50 11/27/23 Review of Systems ROS Narrative A ten point review of systems is negative except as noted above. [facility] Medical History (Updated 08/28/24 @ 06:46 by Camilo Contreras MD) Partial obstruction of small intestine ?K56.600 - Partial intestinal obstruction, unspecified as to cause (ICD-10) Constipation ?K59.00 - Constipation, unspecified (ICD-10) Ileus ?K56.7 - Ileus, unspecified (ICD-10) Nausea and vomiting ?R11.2 - Nausea with vomiting, unspecified (ICD-10) GERD (gastroesophageal reflux disease) ?K21.9 - Gastro-esophageal reflux disease without esophagitis (ICD-10) Elevated troponin ?R77.8 - Other specified abnormalities of plasma proteins (ICD-10) Chronic upper abdominal pain ?R10.10 - Upper abdominal pain, unspecified (ICD-10) ?G89.29 - Other chronic pain (ICD-10) Epigastric abdominal pain ?R10.13 - Epigastric pain (ICD-10) Abdominal pain, chronic, generalized ?R10.84 - Generalized abdominal pain (ICD-10) ?G89.29 - Other chronic pain (ICD-10) Headache, migraine ?G43.909 - Migraine, unspecified, not intractable, without status migrainosus (ICD-10) Gastroparesis ?K31.84 - Gastroparesis (ICD-10) Mitral valve disorder ?I05.9 - Rheumatic mitral valve disease, unspecified (ICD-10) Surgical History 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 ?K95.89 - Other complications of other bariatric procedure (ICD-10) ?K22.4 - Dyskinesia of esophagus (ICD-10) History of hernia surgery ?Z98.890 - Other specified postprocedural states (ICD-10) ?Z87.19 - Personal history of other diseases of the digestive system (ICD-10) FH: cholecystectomy ?Z83.79 - Family history of other diseases of the digestive system (ICD-10) H/O: hysterectomy ?Z90.710 - Acquired absence of both cervix and uterus (ICD-10) Family History Father Family history of myocardial infarction Family history of cancer Grandmother Family history of diabetes mellitus Family history of stroke Sister Family history of hypertension Social History Within the past year, how often did you have a drink containing alcohol: never Within the past year, how many standard drinks containing alcohol did you have on a typical day: 1 or 2 Within the past year, how often did you have six or more drinks on one occasion: never Total score: 0 Score interpretation: A score less than 3 is consistent with normal alcohol consumption. 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 Known occupational exposures/hazards: No Highest level of school completed/degree received: high school graduate Do you want help with school or training: No Are you now , , , , never or living with a partner: In a typical week, how many times do you talk on the telephone with family, friends, or neighbors: 3 or more times per week How often do you get together with friends or relatives: 3 or more times per week How often do you attend taoism or yarsani services: never Do you belong to any clubs or organizations such as taoism groups unions, fraternal or athletic groups, or school groups: no Total score: 2 Score interpretation: A score of greater than or equal to 2 indicates the lowest level of social isolation. Little interest or pleasure in doing things: not at all Feeling down, depressed, or hopeless: not at all Feel stressed/tense/nervous/anxious/difficulty sleeping: not at all Due to disability, difficulty making decisions: No Do you think of yourself as: straight/heterosexual Gender Identity: female Exam Narrative Exam Narrative: Nurses note and vital signs reviewed and patient is not hypoxic. General: The patient appears well and in no apparent distress. Patient is resting comfortably on cart. Skin: Warm, dry, no pallor noted. There is no rash noted. Head: Normocephalic, atraumatic Eye: Normal conjunctiva, no drainage Ears, Nose, Mouth, and Throat: oral mucosa is moist. Nares patent. Cardiovascular: Regular Rate and Rhythm Respiratory: Patient is in no distress, no accessory muscle use, lungs are clear to auscultation, no wheezing, rales or rhonchi Back: non-tender GI: Soft and nontender Musculoskeletal: The patient has no evidence of calf tenderness, no pitting edema, symmetrical pulses noted bilaterally Neurological: A&O, normal speech Psychiatric: Cooperative Constitutional Vital Signs, click to edit/add: Last Vital Signs Temp 97.5 F L 08/28/24 04:06 Pulse 84 08/28/24 06:12 Resp 18 08/28/24 06:12 BP 170/110 H 08/28/24 06:12 Pulse Ox 95 08/28/24 06:12 O2 Del Method Room Air 08/28/24 06:12 Course Vital Signs Vital signs: Vital Signs Temperature 97.5 F L 08/28/24 04:06 Pulse Rate 82 08/28/24 04:06 Respiratory Rate 24 H 08/28/24 04:06 Blood Pressure 174/104 H 08/28/24 04:06 Pulse Oximetry 98 08/28/24 04:06 Temperature 97.5 F L 08/28/24 04:06 Pulse Rate 84 08/28/24 06:12 Respiratory Rate 18 08/28/24 06:12 Blood Pressure 170/110 H 08/28/24 06:12 Pulse Oximetry 95 08/28/24 06:12 Oxygen Delivery Method Room Air 08/28/24 06:12 Medical Decision Making MDM Narrative Medical decision making narrative: Abdominal x-rays indicate large bowel obstruction per radiologist. CAT scan is ordered and pending. NG tube was inserted and she was given IV hydralazine because of elevated blood pressure. The patient is signed out to Dr. Knox at change of shift. Differential Diagnosis Differential Diagnosis: Small bowel obstruction, large bowel obstruction, nonspecific abdominal reuben Lab Data Lab results reviewed: Yes I reviewed the patient's lab results Labs: Lab Results 08/28/24 Range/Units 04:23 WBC 8.4 (4.0-11.0) 10^3/uL RBC 4.00 L (4.20-5.40) 10^6/uL Hgb 11.9 L (12.0-16.0) g/dL Hct 36.8 (36.0-48.0) % MCV 92.0 (81.0-99.0) fL MCH 29.8 (26.7-34.0) pg MCHC 32.3 (29.9-35.2) g/dL RDW 13.0 (11.0-15.0) % Plt Count 372 (150-450) 10^3/uL MPV 9.0 L (9.5-13.5) fL Neut % (Auto) 63.5 (43.0-75.0) % Lymph % (Auto) 26.3 (20.5-60.0) % Tillman % (Auto) 6.3 (1.7-12.0) % Eos % (Auto) 3.4 (0.9-7.0) % Baso % (Auto) 0.4 (0.2-2.0) % Neut # (Auto) 5.3 (1.4-6.5) 10^3/uL Lymph # (Auto) 2.2 (1.2-3.8) 10^3/uL Tillman # (Auto) 0.5 (0.3-0.8) 10^3/uL Eos # (Auto) 0.3 (0.0-0.7) 10^3/uL Baso # (Auto) 0.0 (0.0-0.1) 10^3/uL Abs Immat Gran (auto) 0.01 (0.00-0.03) 10^3/uL Imm/Tot Granulo (auto) 0.1 (0.0-0.5) % Sodium 143 (136-145) mmol/L Potassium 3.9 (3.5-5.1) mmol/L Chloride 109 H (98-107) mmol/L Carbon Dioxide 24.9 (21.0-32.0) mmol/L Anion Gap 13.0 BUN 13.0 (7.0-18.0) mg/dL Creatinine 0.97 (0.55-1.02) mg/dL Est GFR ( Amer) >60 (>=60 mL/min/1.73m^2) Est GFR (Non-Af Amer) 60 (>=60 mL/min/1.73m^2) BUN/Creatinine Ratio 13.4 Glucose 99 (74-106) mg/dL Calcium 8.9 (8.5-10.1) mg/dL Troponin I High Sens 38.7 (4.0-51.3) pg/mL Imaging Data Abdominal x-ray: Radiologist's impression: ITS Impressions Chest X-Ray 08/28/24 04:16 IMPRESSION: No acute findings. This report was generated with voice recognition software. Effort has been made to ensure accuracy of this report, however, occasional wording errors may persist. Please contact our office with any questions. Electronically authenticated by: MIHAI DE LA FUENTE Date: 08/28/2024 05:27 Chest/Abdomen X-ray 08/28/24 04:48 IMPRESSION: Air and fluid distention of large bowel with air-fluid levels primarily involving cecum and transverse colon. There is air and stool seen extending rectosigmoid with tapering of large bowel distally. Correlate for distal rectal outlet obstruction versus a large bowel ileus with secretory fluid and diarrhea. CT abdomen and pelvis findings. Please correlate with available. Electronically authenticated by: MIHAI DE LA FUENTE Date: 08/28/2024 05:32 ECG Data Attestation: I personally reviewed and interpreted this ECG as follows: (EKG on my interpretation shows normal sinus rhythm with a rate of 84 no acute change) Discharge Plan Discharge Patient Disposition: Still a Patient
[2024-08-28 04:29] LABS: Basophils Percent Auto 0.4 % (0.2-2.0); Eosinophils Absolute Auto 0.3 10^3/uL (0.0-0.7); Eosinophils Percent Auto 3.4 % (0.9-7.0); Hematocrit 36.8 % (36.0-48.0); Hemoglobin 11.9 g/dL (12.0-16.0); Immature Granulocytes Abs Auto 0.01 10^3/uL (0.00-0.03); Immature Granulocytes Pct Auto 0.1 % (0.0-0.5); Lymphocytes Absolute Auto 2.2 10^3/uL (1.2-3.8); Lymphocytes Percent Auto 26.3 % (20.5-60.0); Mean Corpuscular HGB Conc 32.3 g/dL (29.9-35.2); Mean Corpuscular Hemoglobin 29.8 pg (26.7-34.0); Monocytes Absolute Auto 0.5 10^3/uL (0.3-0.8); Monocytes Percent Auto 6.3 % (1.7-12.0); Neutrophils Absolute Auto 5.3 10^3/uL (1.4-6.5); Neutrophils Percent Auto 63.5 % (43.0-75.0); Platelet Count 372 10^3/uL (150-450); White Blood Count 8.4 10^3/uL (4.0-11.0)
[2024-08-28] MEDS: ONDANSETRON PF 4 MG/2 ML VIAL IV ×2 (04:35→09:29)
[2024-08-28 04:48] LABS: BUN Creatinine Ratio 13.4; Calcium 8.9 mg/dL (8.5-10.1); Carbon Dioxide 24.9 mmol/L (21.0-32.0); Chloride 109 mmol/L (98-107); Estimated GFR (African America >60 (>=60 mL/min/1.73m^2); Estimated GFR (Non-African Ame 60 (>=60 mL/min/1.73m^2); Glucose 99 mg/dL (74-106); Potassium 3.9 mmol/L (3.5-5.1); Sodium 143 mmol/L (136-145); Troponin I High Sensitivity 38.7 pg/mL (4.0-51.3)
--- NOTE | 2024-08-28 04:48 | XR_ITS ---
The [address] [address] Patient Name: CONSTANTINO CARDOSO MRN: [id number] date: 1970 Sex: F Assigned Patient Location: ER Current Patient Location: ER Accession/Order Number: [id number] Exam Date: 08/28/2024 05:00 Report Date: 08/28/2024 05:32 At the request of: ZEFERINO ARMAS Procedure: XR acute abdomen series EXAM: XR acute abdomen series HISTORY: pain COMPARISON: None. TECHNIQUE: Frontal chest with supine and upright views of abdomen and pelvis. FINDINGS: Frontal chest demonstrates expanded and clear lungs. Well-defined pleural margins. Normal heart size and vasculature. Thoracic osseous structures are intact. Air and stool seen throughout large bowel from cecum to rectosigmoid. There is some air and fluid distention of large bowel particularly at cecum and transverse colon with air-fluid levels. There is a prominent stool distally at rectosigmoid. Findings favor large bowel ileus with some secretory fluid and diarrhea. Correlate symptomatically for distal outlet obstruction. There is some prominent distention of the cecum. No obvious colonic wall thickening or signs of colitis. Small bowel does not appear to be distended. No free air. No opaque calculi. No organomegaly. Right upper quadrant surgical clips likely from prior cholecystectomy. Correlate with surgical history. XR/XR acute abdomen series IMPRESSION: Air and fluid distention of large bowel with air-fluid levels primarily involving cecum and transverse colon. There is air and stool seen extending rectosigmoid with tapering of large bowel distally. Correlate for distal rectal outlet obstruction versus a large bowel ileus with secretory fluid and diarrhea. CT abdomen and pelvis findings. Please correlate with available. Electronically authenticated by: MIHAI DE LA FUENTE Date: 08/28/2024 05:32
[2024-08-28] MEDS: KETOROLAC TROMETHAMINE 30 MG/ML VIAL IVP (04:55)
--- NOTE | 2024-08-28 05:17 | CT_ITS ---
[address] [address] Patient Name: CONSTANTINO CARDOSO MRN: [id number] date: 1970 Sex: F Assigned Patient Location: ER Current Patient Location: ER Accession/Order Number: [id number] Exam Date: 08/28/2024 05:55 Report Date: 08/28/2024 07:52 At the request of: ZEFERINO ARMAS Procedure: CT abdomen pelvis w con EXAM: CT abdomen pelvis w con HISTORY: SBO. Vomiting, chest pain, dizziness. COMPARISON: CT abdomen/pelvis 06/01/2024. TECHNIQUE: Multiple axial CT images of the abdomen and pelvis were performed with IV contrast. 2D coronal and sagittal reformations were submitted for review. Dose reduction techniques were achieved by using automated exposure control and/or adjustment of mA and/or kV according to patient size and/or use of iterative reconstruction technique. FINDINGS: LUNGS: Mild bibasilar atelectasis. No pleural effusion is identified. ABDOMINAL AORTA: No aortic aneurysm identified. Visceral branches appear widely patent. LYMPH NODES: No retroperitoneal, mesenteric or pelvic lymphadenopathy. LIVER: Liver contour appears smooth. No focal liver parenchymal mass identified. BILIARY TREE AND GALLBLADDER: Biliary ductal dilatation may be related to postcholecystectomy state, grossly unchanged. PANCREAS: Normal in size without masses or ductal dilatation. No peripancreatic inflammatory changes. SPLEEN: Normal in size without focal lesions. ADRENAL GLANDS: Normal bilaterally, without nodules. KIDNEYS/URINARY BLADDER: Kidneys enhance in a symmetric fashion. Similar intermediate density lesion along the anterior midpole cortex of the right kidney measuring 2.1 cm. No KUB stones or hydronephrosis identified. The urinary bladder appears unremarkable. GASTROINTESTINAL TRACT: Gaseous distention of the colon is noted without transition point. No dilated small bowel loops. [id number] hiatal hernia. Esophagogastric tube tip terminates in the distal stomach. Prior appendectomy. PERITONEAL CAVITY AND SURFACES: No free fluid. No free intraperitoneal air. REPRODUCTIVE ORGANS: Prior hysterectomy. ABDOMINAL WALL: No abdominal hernias are seen. OSSEOUS STRUCTURES: No aggressive appearing osseous lesions. No compression fracture is identified. Convex right curvature of the lumbar spine with mild degenerative disc disease. CT/CT abdomen pelvis w con IMPRESSION: 1. Gaseous distention of the colon suggesting colonic ileus pattern. No transition point is noted. Continued clinical follow-up. 2. Enteric tube tip terminates in the distal stomach. Khnai-[id number]-opfoynno hiatal hernia. 3. Intermediate density lesion in the right renal cortex may correlate with a hemorrhagic/proteinaceous cyst. This could be further characterized with CT or MRI renal protocol. 4. Biliary ductal dilatation likely related to postcholecystectomy state. Recommend clinical correlation. Electronically authenticated by: MARQUES ROSEN Date: 08/28/2024 07:52
[2024-08-28] MEDS: MORPHINE SULFATE 4 MG/ML VIAL IV (05:31)
[2024-08-28] MEDS: BENZOCAINE 20% SPRAY 57 GM SPRAY CAN TOPICAL (05:49)
[2024-08-28] MEDS: HYDRALAZINE HCL 20 MG/ML VIAL 10 MG IVP (06:54)
[2024-08-28 08:27] LABS: Troponin I High Sensitivity 38.1 pg/mL (4.0-51.3)
[2024-08-28] MEDS: HYDROMORPHONE HCL 1 MG/ML CARTRIDGE IVP (09:29)
== END 2024-08-28 10:30 | disposition short-term general hospital (02) ==
PROVIDERS: Emergency Medicine; Emergency Provider Emergency Medicine Emergency Medical Services; PCP Nurse Practitioner Family
DX: R10.9 Unspecified abdominal pain (principal); R07.9 Chest pain, unspecified; I10 Essential (primary) hypertension; Z90.710 Acquired absence of both cervix and uterus; Z87.891 Personal history of nicotine dependence; R11.2 Nausea with vomiting, unspecified
CPT/HCPCS: 36415; 71045; 74022; 74177; 80048; 84484; 85025; 93005; 96374; 96375; 96376; 99285; J0360; J1171; J1885; J2270; J2405; Q9967

== ENCOUNTER 2024-08-31 13:48 | Outpatient (OUT) | payer BC, SELFPAY ==
--- OUTSIDE RECORDS SUMMARY | 2024-08-31 13:56 | XMS_ITS | CCD ---
Author Organization [facility] ion [facility] Care Team Providers Care Day Care Director Name Role Phone LEONA MORTENSEN Admitting Unavailable LEONA MORTENSEN Attending Unavailable KEVIN HERRERA Primary Care Unavailable KEVIN HERRERA Referring Unavailable [place] Procedure Practitioner Unavailab ORESTES Cruz Surgeon Unavailable JUDI YOUSSEF Primary Care Physician DONI Youssef Primary Care Provider DO Conner Griffith Emergency Provider Jennie Ayon Unavailable MD Jennie Ayon Attending Provider [phone] JOHNATHAN RUDOLPH Attending Unavailibis RUDOLPH, [...] Consulting Unavailable MIKAEL, JUDI Attending Unavailable MIKAEL, UJDI Primary Care Unavailable FAB ., BALTAZAR Consulting [...] LINDA Youssef-Paula Judi Joan Primary Care Provider DO Conner Griffith Emergency Provider DO Pete Thakkar Emergency Provider [facility] Primary Care Provider Rafa Rangel Unavailable [phone] Renny Omalley Unavailable [phone] MARQUES BRADLEY Referring Unavailable [facility] Primary Care Unavailable [facility] Primary Care Unavailable KROH, MARQUES Patel Referring Unavailable KROH, MARQUES Patel Attending Unavailable IMER CHERRY Referring Unavailable [facility] Primary Care Unavailable [facility] Primary Care Unavailable KROH, MARQUES Patel Referring Unavailable KAITLYN TORRES Attending Unavailable KROHMARQUES Referring Unavailable [facility] Primary Care Unavailable MELISSA MONTALVO Attending Unavailable KROH, MARQUES Patel Referring Unavailable [facility] Primary Care Unavailable SLY, SLY ADEL Attending Unavailable KROHMARQUES Referring Unavailable [facility] Primary Care Unavailable BRENNEN SHAW Attending Unavailable Orzech, Yolanda X Attending Unavailable Orzech, Yolanda X Admitting Unavailable Orzech, Yolanda X Attending Unavailable Orzech, Yolanda X Admitting Unavailable Orzech, Yolanda X Attending Unavailable Samuel Estrella Attending Unavailable LINDA Youssef-Paula Judi Joan Primary Care Provider MD Nany Imleo Attending Provider EDISON KINCAID Attending Unavailable EDISON KINCAID Attending Unavailable EDISON KINCAID Attending Unavailable Orzech, Yloanda X Attending Unavailable Judi Youssef Joan Primary Care Unavailable Asaad, Imad Admitting Unavailable Asaad, Imad Attending Unavailable Mikael, Judi Joan Primary Care Unavailable Asaad, Imad Admitting Unavailable Asaad, Imad Attending Unavailable Unallocated , [place] Provider Primary Care Provi [facility] Judi Youssef MD Unavailable KULWANT HODGE Attending Unavailable KULWANT HODGE Referring Unavailable KULWANT HODGE Attending Unavailable No, Pcp Primary Care Provider UnavailJUSTIN Jenkins Admitting Unavailable JUSTIN LUCERO Attending Unavailable NO, PCP Primary Care Unavailable Judi Disla APRN, CNP Primary Care Provide r OBDULIO JUSTICE Attending Unavailable JUDI YOUSSEF Primary Care Unavailable SERGE WILD Consulting Unavailable AVOBDULIO BANERJEE Admitting Unavailable AVASTHI OBDULIO Consulting Unavailable Allergies Allergy Classification Reported Allergen(s) Allergy Type Date of Onset Reaction(s) Facility (9 sources) cyclobenzaprine; Translations: [CYCLOBENZAPRINE] Drug Allergy 04-28-20 18 Swelling of Lip/Tongue/Thr oat, Swelling of Lip/Tongue/Thr oat, throat swelling [facility] Repository (10 sources) Penicillins; Translations: [PENICILLINS] Drug allergy (disorder) 09-02-20 15 Rash [facility] Repository (20 sources) cyclobenzaprine; Translations: [cyclobenzaprine] Drug Allergy 04-28-20 18 Pharyngeal swelling (finding), Swelling, Other (See Comments) [facility] (20 sources) Penicillin; Translations: [penicillin] Drug Allergy 04-28-20 18 Swelling (morphologic abnormality), Swelling [facility] (12 sources) penicillAMINE Drug Allergy 04-26-20 24 rash [facility] (2 sources) cyclobenzaprine Drug Allergy 03-23-20 16 [facility] Repository (1 source) traMADol Drug Allergy [facility] Rep[facility] (1 source) traMADol Drug Allergy [facility] Rep[facility] (1 source) cyclobenzaprine Drug Allergy 05-01-20 [facility] Repository (1 source) penicillAMINE Drug Allergy 05-01-20 24 [facility] Repository (1 source) Penicillins Drug allergy (disorder) 05-01-20 [facility] Repository (6 sources) penicillAMINE Drug Allergy 05-01-20 24 Rash [facility] (6 sources) Penicillins Drug Allergy 04-28-20 18 Rash, Swelling [facility] (2 sources) Penicillins Propensity to adverse reactions to drug 04-28-20 18 Other (See Comments), Rash, Swelling [facility] Medications Current Medications Medication Drug Class(es) Dates Sig (Normalized) Sig (Original) acarbose 25 mg oral tablet (4 sources) alpha-Glucosidas e Inhibitor Start: 07-13-2024 End: 07-13-2025 take 1 tablet by mouth twice daily acarbose (PRECOSE) 25 MG tablet Take 1 tablet by mouth 2 times daily 07/16/2024 Active Acetaminophen (12 sources) Start: 08-28-2024 acetaminophen (TYLENOL) tablet 650 mg Start: 01-16-2020 take 1 tablet by ana th every four hours as needed for pain Tylenol 325 mg Tab 325 mg = 1 tab(s), Oral, q4hr, PRN Pain, Refills(s) 0 Start Date: 01/16/20 Status: Ordered acetaminophen 325 mg / butalbital 50 mg / caffeine 40 mg oral tablet (11 sources) Barbiturate, Central Nervous System Stimulant, Methylxanthine Start: 07-22-2020 take 1 tablet by mouth every twelve hours as needed for headache APAP/butalbital/caffeine 325 mg-50 mg-40 mg Tab 1 tab(s), [...] Status: Ordered cholecalciferol 0.05 mg oral capsule (10 sources) Vitamin D Start: 05-01-2024 take 1 [...] weeks, then 2 times weekly for maintenance, [facility]/pharmacy #[id number], 170, cm, 02/16/24 9:10:00 [...] # 90 tab(s), Refills(s) 0, [id number], cm, 01/28/22 13:40:00 EDT, Height/Length [...] 12:01am hyoscyamine sulfate 0.125 mg oral tablet (10 sources) Start: 05-01-2024 take 1 tablet by mouth every six hours as needed hyoscyamine (Anaspaz,Levsin) 0.125 MG tablet Take 1 tablet by mouth every 6 (six) hours if needed 05/01/2024 Active Start: 08-27-2024 take 0.125 mg by ana th once daily Hyoscyamine Sulfate Active 0.125 MG PO Daily May 01, 2024 12:00am take 1 tablet by ana th every four hours as needed hyoscyamine (ANASPAZ;LEVSIN) 0.125 MG tablet Take 1 tablet by mouth every 4 hours as needed for Cramping Active 1 ml ketorolac tromethamine 30 mg/ml cartridge (2 sources) Nonsteroidal Anti-inflammatory Drug, Cyclooxygenase Inhibitor Start: 08-28-2024 End: 09-02-2024 30 mg, IntraVENous, EVERY 6 HOURS PRN, Starting on Tue08/28/24 at 2309, Until 09/02/24 at 2308, Pain Severe (7-10), Do not administer for more than 5 days. Start: 08-28-2024 End: 08-28-2024 30 mg, IntraVENous, ONCE, 1 dose, On Tue08/28/24 at 1800 labetalol hydrochloride 5 mg/ml injectable solution (1 source) beta-Adrenergic Serena Start: 08-28-2024 10 ml lidocaine hydrochloride 10 mg/ml injection (13 sources) Antiarrhythmic, Amide Local Anesthetic Start: 08-17-2024 End: 08-18-2024 take 1 dose intravenously once daily 1 mL, IntraDERmal, ONCE PRN, 1 dose, Starting on Tue08/17/24 at 1120, Until 08/18/24 at 1120, IV start, Pre-op (day of surgery) Start: 04-24-2018 LIDOCAINE VISC OUS 2 % solution 50 ml magnesium sulfate 40 mg/ml injection (1 source) Start: 08-28-2024 naproxen 500 mg oral tablet (14 sources) [...] Daily, # 90 cap(s), Refills(s) 3, Pharmacy: [facility]/pharmacy #[id number], 170, cm, 01/11/22 9:17:00 EDT, Height/Length Dosing, 83, kg, 01/11/22 9:17:00 EDT, Weight Dosing Start Date: 01/11/22 Status: Ordered omeprazole 40 mg Cap-DR (1 source) Start: 01-28-2022 End: 04-28-2022 take 1 capsule by mouth once daily omeprazole 40 mg Cap-DR 40 mg = 1 cap(s), Oral, Daily, X 90 day(s), # 90 cap(s), Refills(s) 0, Pharmacy: [facility]/pharmacy #[id number], 170, cm, 01/28/22 13:40:00 EDT, Height/Length Dosing, 84.5, kg, 01/28/22 13:40:00 EDT, Weight Dosing Start Date: 01/28/22 Stop Date: 04/28/22 Status: Ordered ondansetron (ZOFRAN-ODT) disintegrating tablet 4 mg (1 source) Start: 08-28-2024 ondansetron (ZOFRAN-ODT) disintegrating tablet 4 mg pantoprazole 40 mg delayed release oral tablet (20 sources) Proton Pump Inhibitor Start: 08-31-2024 take 40 mg by mouth once daily before breakfast 40 mg, Oral, DAILY BEFORE BREAKFAST, First dose on Tue08/31/24 at 0700, Until Discontinued, Do not crush or break. Start: 02-15-2023 End: 05-16-2024 take 1 tablet [...] 05, 2018 12:00am April 13, 2018 11:34am polyethylene glycol 3350 50575 mg powder for oral solution (8 sources) Osmotic Laxative Start: 08-30-2024 End: 09-19-2024 polyethylene glycol (GLYCOLAX) 17 GM/SCOOP powder Take 17 g by mouth daily for 20 days 116 g 2 08/30/2024 09/19/2024 Active Start: 08-28-2024 17 g, Oral, DA NINA, First dose on Tue08/29/24 at 1100, Until Discontinued, Stir and dissolve one packet of powder (17 g) in any 4 to 8 ounces of beverage (cold, hot or room temperature) then drink Start: 02-15-2023 End: 05-11-2024 Polyethylene Glycol 3350 (Mi ralax) 17 gram Powder In Packet Discontinued 17 GM PO Daily February 15, 2023 12:00am May 11, 2024 8:09am sennosides, prison 8.6 mg oral tablet (3 sources) Start: 08-30-2024 End: 09-14-2024 take 1 tablet by mouth once daily senna (SENOKOT) 8.6 MG tablet Take 1 tablet by mouth daily for 15 days 15 tablet 08/30/2024 09/14/2024 Active Start: 08-29-2024 End: 08-30-2024 take 1 tablet by mouth twice daily as needed for constipation senna (SENOKOT) 8.6 MG tablet Take 1 tablet by mouth 2 times daily as needed for Constipation 60 tablet 08/30/2024 08/30/2024 Discontinued Symbicort 160/4.5 inhalation aerosol with adapter (11 [...] Nausea/Vomiting, # 12 tab(s), Refills(s) 0, Pharmacy: [facility]/pharmacy #[id number], 170, cm, 09/20/20 16:03:00 EST, Height/Length Dosing, 87.5, kg, 09/20/20 16:03:00 EST, Weight Dosing Start Date: 09/20/20 Status: Ordered Completed/Discontinued Medications Medication Drug Class(es) Dates Sig (Normalized) Sig (Original) acetaminophen 325 mg / HYDROcodone bitartrate 5 mg oral tablet (12 sources) Opioid Agonist Start: 06-21-2019 End: 02-15-2023 take 1 tablet by mouth every six hours Hydrocodone-Acetami nophen ([place]) 5-325 mg Tablet Discontinued 1 TAB PO Q6H June 21, 2019 12:00am February 15, 2023 9:46am Start: 11-12-2018 End: 01-30-2019 take 1 tablet by mouth every four to six hours Hydrocodone-Acetaminophen ([place]) 5-325 mg tablet Discontinued 1 TAB PO [...] day(s), # 120 cap(s), Refills(s) 11, Pharmacy: [facility]/pharmacy #[id number], 170, cm, 05/05/21 14:15:00 EDT, Height/Length Dosing, 83.1, kg, 05/05/21 14:15:00 EDT, Weight Dosing Start Date: 05/05/21 Stop Date: 04/30/22 Status: Ordered Start: 09-20-2020 take 2 capsules by m out four times daily Bentyl 10 mg Cap 20 mg = 2 cap(s), Oral, QID, # 20 cap(s), Refills(s) 0, Pharmacy: [facility]/pharmacy #[id number], 170, cm, 09/20/20 16:03:00 [...] by mouth before meals and at bedtime. 1 ml diphenhydrAMINE hydrochloride 50 mg/ml cartridge (1 source) Histamine-1 Receptor Antagonist Start: 2023 End: 2023 25 mg, IntraVENous, ONCE, 1 dose, On Tue08/28/24 at 1145, IV Push at rate not to exceed 25 mg/min. docusate sodium 100 mg oral capsule (3 sources) Start: 2023 End: 2024 take 1 capsule by mouth once daily as needed for constipation docusate sodium (COLACE, DULCOLAX) 100 MG CAPS Take 100 mg by mouth daily as needed for Constipation (as needed for constipation) 30 capsule 1 08/30/2024 08/30/2024 Discontinued doxycycline hyclate 100 mg oral tablet (6 sources) Tetracycline-clas s Drug Start: 2018 End: 2018 take 100 mg by mouth twice daily Doxycycline Hyclate Discontinued 100 MG PO Twice daily 24 06November 12, 2018 1:00am January 30, 2019 9:43am 0.4 ml enoxaparin sodium 100 mg/ml prefilled syringe (1 source) Low Molecular Weight Heparin Start: 2023 inject 40 mg by subcutaneous injection once daily 40 mg, SubCUTAneous, DAILY, First dose on Tue08/28/24 at 1545, Until Discontinued, Indication of Use: Prophylaxis-DVT/PE , Administer by deep subCUTAneous injection with pt lying down. Alternate injection sites on abdominal wall. Do not rub site after injection. Check with provider prior to any invasive procedure. 250 ml glucose 50 mg/ml / sodium chloride 9 mg/ml injection (1 source) Start: 2023 End: 2023 IntraVENous, at 50 mL/hr, CONTINUOUS, Starting on Tue08/28/24 at 2245 hydroCHLOROthiazide 25 mg / triamterene 37.5 mg oral capsule (14 sources) Potassium-sparing Diuretic, Thiazide Diuretic Start: 2018 End: 2022 take 1 tablet by mouth once daily Triamterene-Hydroc hlorothiazid Discontinued 1 TAB PO Daily January 30, [...] 09, 2019 12:00am February 27, 2019 3:49pm lisinopril 10 mg oral tablet (11 sources) Angiotensin Converting Enzyme Inhibitor Start: 03-19-2024 End: 03-19-2025 take 10 mg by mouth once daily in the morning 10 mg, Oral, EVERY MORNING, First dose on Tue08/29/24 at 0900, Until Discontinued losartan potassium 100 mg oral tablet (6 [...] 30, 2019 12:00am February 25, 2019 6:46pm 2 ml metoclopramide 5 mg/ml prefilled syringe (20 sources) Dopamine-2 Receptor Antagonist Start: 08-28-2024 End: 08-28-2024 10 mg, IntraVENous, ONCE, 1 dose, On Tue08/28/24 at 1145, IV Push: Max 10 mg over 1-2 minutes. Start: 04-13-2018 End: 04-26-2024 take 1 tablet by mouth every six hours Metoclopramide Hcl (Reglan) 10 mg Tablet Discontinued 10 MG PO Q6H March 23, 2023 12:00am April 26, 2024 8:28am Start: 04-13-2018 take 1 tablet by ana th three times daily Reglan 10 mg Tab 10 mg = 1 tab(s), Oral, TID, # 120 tab(s), Refills(s) 0, Pharmacy: [facility]/pharmacy #[id number], 170, cm, 04/13/21 15:38:00 EDT, Height/Length Dosing, 84.4, kg, 04/13/21 15:38:00 EDT, Weight Dosing Start Date: 04/13/21 Status: Ordered Start: 04-13-2018 take 1 tablet by ana th four times daily Reglan 10 mg Tab 10 mg = 1 tab(s), Oral, QID, # 120 tab(s), Refills(s) 0, Pharmacy: [facility]/pharmacy #[id number], 170, cm, 07/22/22 14:33:00 EST, Height/Length Dosing, 86.6, kg, 07/22/22 14:33:00 EST, Weight Dosing Start Date: 07/22/22 Status: Ordered Start: 04-13-2018 Reglan 10 MG 1 tablet daily as needed Orally once a day for 30 days Apr, Active 24 hr metoprolol succinate 25 mg extended release oral tablet (11 sources) beta-Adrenergic Serena Start: 08-28-2024 take 50 mg by mouth once daily 50 mg, Oral, DAILY, First dose on Tue08/28/24 at 1545, Until Discontinued, Do not crush or chew. Start: 05-01-2024 take 50 mg by mouth once daily Metoprolol Succinate Active 50 MG PO Daily May 01, 2024 12:00am Start: 02-15-2024 End: 02-14-2025 take 1 tablet by mouth every twenty-four hours in the morning metoprolol succinate XL (Toprol-XL) 50 MG 24 hr tablet Take 50 mg by mouth in the morning. 02/15/2024 02/14/2025 Active metroNIDAZOLE 500 mg oral tablet (12 [...] day(s), # 90 cap(s), Refills(s) 1, Pharmacy: [facility]/pharmacy #[id number], 170, cm, 04/14/22 14:53:00 [...] Take 150 mg by mouth twice daily. pantoprazole (PROTONIX) 40 mg in sodium chloride (PF) 0.9 % 10 mL injection (1 source) Start: 08-29-2024 End: 08-30-2024 40 mg, IntraVENous, DAILY, First dose on Tue08/29/24 at 0900, Reconstitute with 10 mL 0.9 % sodium chloride and administer over at least 2 minutes. 100 ml potassium chloride 0.1 meq/ml injection (2 sources) Start: 08-29-2024 End: 08-29-2024 10 mEq, IntraVENous, EVERY HOUR, 2 doses, First dose on Tue08/29/24 at 0715, Last dose on Tue08/29/24 at 0815, at 100 mL/hr, Potassium chloride doses are limited to a maximum of six consecutive doses before reassessment of laboratory values is needed. Start: 08-28-2024 potassium chlo ride (KLOR-CON M) extended release tablet 40 mEq potassium chloride 40 mEq in dextrose 5 % 1,000 mL infusion (1 source) Start: 08-29-2024 End: 08-30-2024 IntraVENous, at 50 mL/hr, CONTINUOUS, Starting on Tue08/29/24 at 1245 predniSONE 20 mg oral tablet (6 sources) Start: 10-07-2018 End: 11-12-2018 take 40 mg by mouth once daily in the morning Prednisone Discontinued 40 MG PO Every morning 10 5 October 07, 2018 1:00am November 12, 2018 4:42pm administer with food or milk promethazine hydrochloride 25 mg oral tablet (20 sources) Phenothiazine Start: 03-24-2018 End: 02-15-2023 take 25 mg by mouth every four to six hours Promethazine Discontinued 25 MG PO EVERY 4-6 HOURS October 26, 2022 1:00am February 15, 2023 9:46am pyridostigmine bromide 60 mg oral tablet (3 sources) Start: 03-31-2023 End: 05-01-2024 take 60 mg by mouth twice daily Pyridostigmine [place] Discontinued 60 MG PO Twice daily 60 March 31, 2023 12:00am May 01, 2024 9:31am sertraline 50 mg oral tablet (11 sources) Serotonin Reuptake Inhibitor Start: 01-29-2024 take 50 mg by mouth once daily 50 mg, Oral, DAILY, First dose on Tue08/28/24 at 1545, Until Discontinued 5 ml sodium chloride 9 mg/ml injection (8 sources) Start: 08-28-2024 5-40 mL, IntraVENous, EVERY 12 HOURS SCHEDULED (2 times per day), First dose on Tue08/28/24 at 2100, Until Discontinued, For Line Patency: Peripheral IV [...] mL Midline or Central Line = 20 mL/lumen Start: 08-28-2024 End: 08-28-2024 IntraVENous, at 75 mL/hr, CO NTINUOUS, Starting on Tue08/28/24 at 1545 Start: 08-28-2024 5-40 mL, Intra VENous, PRN, Starting on Tue08/28/24 at 1516, Until Discontinued, Line Care, After every IV [...] mL Midline or Central Line = 20 mL/lumen Start: 08-17-2024 IntraVENous, a t 125 mL/hr, [...] = 20 mL/lumen, Pre-op (day of surgery) sucralfate 1000 mg oral tablet (16 sources) Aluminum Complex Start: 02-15-2023 End: 05-01-2024 take 1 tablet by mouth every [...] without dysplasia] Onset: 01-11-2022 Chronic Essential hypertension (18 sources) Hypertensive disorder; Translations: [Essential (primary) hypertension] Onset: 11-30-2022 01-22-2020 Chronic Fluid and electrolyte disorders (7 sources) Dehydration; Translations: [Hypokalemia] Onset: 04-07-2022 08-30-2024 Episodic Genitourinary symptoms and ill-defined conditions (1 [...] 11-04-2022 09-08-2019 Chronic Intestinal obstruction without hernia (13 sources) Partial intestinal obstruction, unspecified as to cause; Translations: [Small bowel obstruction] Onset: 03-27-2022 Episodic Miscellaneous mental health disorders (1 source) Psychological and behavioral factors associated with disorders or diseases classified elsewhere; Translations: [Psychological factors affecting medical condition] Onset: 07-13-2023 Chronic Mood disorders (2 sources) Major depressive disorder; Translations: [Major depressive disorder, single episode, unspecified] Onset: 08-29-2024 4 Chronic Nausea and vomiting (20 sources) Nausea [...] skilled nursing (current) drug therapy; Translations: [OTH CORRECTION CURRENT DRUG THERAPY] Onset: 11-30-2022 Episodic Other [...] unspecified] Onset: 05-06-2023 Episodic Other gastrointestinal disorders (12 sources) Dysphagia; Translations: [Dysphagia, unspecified] Onset: 08-15-2024 [...] Test Name Value Interpretation Reference Range Facility Basic Metab w/rfx MGon 08-30 Anion gap [Moles/Vol] 11 mmol/L Normal 9-16 [facility] Comment on above: Performed By: #### C DP, BMPX #### [facility] [employer] [address] [place] [address] Yarn Cleaner: Josef Rivera MD Calcium [Mass/Vol] 9.4 mg/dL Normal 8.6-10.4 [facility] Comment on above: Performed By: #### C DP, BMPX #### [place] [address] [employer]er: Josef Rivera MD Chloride [Moles/Vol] 105 mmol/L Normal 98-107 [facility] Comment on above: Performed By: #### C DP, BMPX #### [facility] [employer] [address] [place] [id number] Yarn Cleaner: Josef Rivera MD CO2 [Moles/Vol] 24 mmol/L Normal 20-31 [facility] Comment on above: Performed By: #### C DP, BMPX #### [facility] [employer] [address] [place] [id number] Yarn Cleaner: Josef Rivera MD Creatinine [Mass/Vol] 0.8 mg/dL Normal 0.6-0.9 [facility] Comment on above: Performed By: #### C DP, BMPX #### [facility] [employer] [address] [place] [address] Yarn Cleaner: Josef Rivera MD GFR/1.73 sq M.predicted among non-blacks MDRD (S/P/Bld) [Vol rate/Area] 88 mL/min/{1.73_m2} Normal >60 [facility] Comment on above: Result Comment: These results are not intended for use in patients <18 years of age. eGFR results are calculated without a race factor using the 2020 CKD-EPI equation. Careful clinical correlation is recommended, particularly when comparing to results calculated using previous equations. The CKD-EPI equation is less accurate in patients with extremes of muscle mass, extra-renal metabolism of creatine, excessive creatine ingestion, or following therapy that affects renal tubular secretion. Performed By: #### C DP, BMPX #### [facility] [address] [place] [address] Yarn Cleaner: Josef Rivera MD Glucose [Mass/Vol] 107 mg/dL High 74-99 [facility] Comment on above: Performed By: #### C DP, BMPX #### [facility] [employer] [address] [place] [id number] Yarn Cleaner: Josef Rivera MD Potassium [Moles/Vol] 3.8 mmol/L Normal 3.7-5.3 [facility] Comment on above: Performed By: #### C DP, BMPX #### [facility] [address] [place] [id number] Yarn Cleaner: Josef Rivera MD Sodium [Moles/Vol] 140 mmol/L Normal 136-145 [facility] Comment on above: Performed By: #### C DP, BMPX #### [facility] [address] [place] [id number] Yarn Cleaner: Josef Rivera MD Urea nitrogen [Mass/Vol] 5 mg/dL Low 6-20 [facility] Comment on above: Performed By: #### C DP, BMPX #### [facility] [address] [id number] Yarn Cleaner: Josef Rivera MD Basic Metabolic Panel w/ Ref galen to MGon 08-30-2024 Anion gap [Moles/Vol] 11 mmol/L 9 - 16 mmol/L [facility] Calcium [Mass/Vol] 9.4 mg/dL 8.6 - 10. 4 mg/dL [facility] Chloride [Moles/Vol] 105 mmol/L 98 - 10 7 mmol/L [facility] CO2 [Moles/Vol] 24 mmol/L 20 - 31 mmol/L [facility] Creatinine [Mass/Vol] 0.8 mg/dL 0.6 - 0.9 mg/dL [facility] Est, Glom Filt Rate 88 - PINF [facility] Comment on above: These results are not intended for use in patients <18 years of age. eGFR results are calculated without a race factor using the 2020 CKD-EPI equation. Careful clinical correlation is recommended, particularly when comparing to results calculated using previous equations. The CKD-EPI equation is less accurate in patients with extremes of muscle mass, extra-renal metabolism of creatine, excessive creatine ingestion, or following therapy that affects renal tubular secretion. Glucose [Mass/Vol] 107 mg/dL High 74 - 99 mg/dL [facility] Interpretation and review of laboratory results Abnormal [facility] Potassium [Moles/Vol] 3.8 mmol/L 3.7 - 5.3 mmol/L [facility] Sodium [Moles/Vol] 140 mmol/L 136 - 145 mmol/L [facility] Urea nitrogen [Mass/Vol] 5 mg/dL Low 6 - 20 mg/dL [facility] CBC with Auto Differentialon 08-30-2024 Basophils (Bld) [#/Vol] 0.03 10*3/uL [facility] Basophils/100 WBC (Bld) 1 % 0 - 2 % [facility] Eosinophils (Bld) [#/Vol] 0.27 10*3/uL [facility] Eosinophils/100 WBC (Bld) 5 % High 1 - 4 % [facility] Erythrocyte distribution width (RBC) [Ratio] 12.7 % 11.8 - 14.4 % [facility] Hematocrit (Bld) [Volume fraction] 37.4 % 36.3 - 47.1 % [facility] Hemoglobin (Bld) [Mass/Vol] 11.5 g/dL Low 11.9 - 15.1 g/dL [facility] Immature granulocytes (Bld) [#/Vol] [facility] Immature granulocytes/100 WBC (Bld) 0 % 0 [facility] Interpretation and review of laboratory results Abnormal [facility] Lymphocytes/100 WBC (Bld) 25 % 24 - 43 % [facility] Lymphocytes/100 WBC (Bld) 1.35 % [facility] MCH (RBC) [Entitic mass] 28.8 pg 25.2 - 33.5 pg [facility] MCHC (RBC) [Mass/Vol] 30.7 g/dL 28.4 - 34.8 g/dL [facility] MCV (RBC) [Entitic vol] 93.5 fL 82.6 - 102.9 fL [facility] Monocytes/100 WBC (Bld) 9 % 3 - 12 % [facility] Monocytes/100 WBC (Bld) 0.46 % [facility] Neutrophils/100 WBC (Bld) 60 % 36 - 65 % [facility] Nucleated RBC/100 WBC (Bld) [Ratio] 0.0 % 0.0 per 100 WBC [facility] Platelet mean volume (Bld) [Entitic vol] 9.1 fL 8.1 - 13.5 fL [facility] Platelets (Bld) [#/Vol] 321 10*3/uL [facility] RBC (Bld) [#/Vol] 4.00 10*6/uL 3.95 - 5.1 1 m/uL [facility] Segmented neutrophils/100 WBC (Bld) 3.27 % [facility] WBC other (Bld) [#/Vol] [facility].[address] [facility] CBC with Diffon 08-30-2024 Abs. Basophil 0.03 k/uL Normal 0.00-0.20 [facility] Comment on above: Performed By: #### C DP, BMPX #### [address] [address] Yarn Cleaner: Josef Rivera MD Abs.Imm.Granulocyte <0.03 Normal 0.00-0.30 [facility] Comment on above: Performed By: #### C DP, BMPX #### [address] [address] Yarn Cleaner: Josef Rivera MD Abs.Neutrophil (Seg) 3.27 k/uL Normal 1.50-8.10 [facility] Comment on above: Performed By: #### C DP, BMPX #### [address] [address] Yarn Cleaner: Josef Rivera MD Basophils/100 WBC (Bld) 1 % Normal 0-2 [facility] Comment on above: Performed By: #### C DP, BMPX #### [address] [address] Yarn Cleaner: Josef Rivera MD Eosinophils (Bld) [#/Vol] 0.27 10*3/uL Normal 0.00-0.44 [facility] Comment on above: Performed By: #### C DP, BMPX #### [address] [address] Yarn Cleaner: Josef Rivera MD Eosinophils/100 WBC (Bld) 5 % High 1-4 [facility] Comment on above: Performed By: #### C DP, BMPX #### [address] [address] Yarn Cleaner: Josef Rivera MD Erythrocyte distribution width (RBC) [Ratio] 12.7 % Normal 11.8-14.4 [facility] Comment on above: Performed By: #### C DP, BMPX #### [place] [address] Yarn Cleaner: Josef Rivera MD Hematocrit (Bld) [Volume fraction] 37.4 % Normal 36.3-47.1 [facility] Comment on above: Performed By: #### C DP, BMPX #### [place] [address] Yarn Cleaner: Josef Rivera MD Hemoglobin (Bld) [Mass/Vol] 11.5 g/dL Low 11.9-15.1 [facility] Comment on above: Performed By: #### C DP, BMPX #### [place] [address] Yarn Cleaner: Josef Rivera MD Immature granulocytes/100 WBC (Bld) 0 % Normal 0 [facility] Comment on above: Performed By: #### C DP, BMPX #### [place] [address] Yarn Cleaner: Josef Rivera MD Lymphocytes (Bld) [#/Vol] 1.35 10*3/uL Normal 1.10-3.70 [facility] Comment on above: Performed By: #### C DP, BMPX #### [place] [address] Yarn Cleaner: Josef Rivera MD Lymphocytes/100 WBC (Bld) 25 % Normal 24-43 [facility] Comment on above: Performed By: #### C DP, BMPX #### [place] [address] Yarn Cleaner: Josef Rivera MD MCH (RBC) [Entitic mass] 28.8 pg Normal 25.2-33.5 [facility] Comment on above: Performed By: #### C DP, BMPX #### [address] [address] Yarn Cleaner: Josef Rivera MD MCHC (RBC) [Mass/Vol] 30.7 g/dL Normal 28.4-34.8 [facility] Comment on above: Performed By: #### C DP, BMPX #### [address] [address] Yarn Cleaner: Josef Rivera MD MCV (RBC) [Entitic vol] 93.5 fL Normal 82.6-102.9 [facility] Comment on above: Performed By: #### C DP, BMPX #### [place] [address] Yarn Cleaner: Josef Rivera MD Monocytes (Bld) [#/Vol] 0.46 10*3/uL Normal 0.10-1.20 [facility] Comment on above: Performed By: #### C DP, BMPX #### [address] [address] Yarn Cleaner: Josef Rivera MD Monocytes/100 WBC (Bld) 9 % Normal 3-12 [facility] Comment on above: Performed By: #### C DP, BMPX #### [address] [address] Yarn Cleaner: Josef Rivera MD Neutrophil (Seg) 60 % Normal 36-65 [facility] Comment on above: Performed By: #### C DP, BMPX #### [address] [address] Yarn Cleaner: Josef Rivera MD NRBC Automated 0.0 per 100 WBC Normal 0.0 [facility] Comment on above: Performed By: #### C DP, BMPX #### [address] [address] Yarn Cleaner: Josef Rivera MD Platelet mean volume (Bld) [Entitic vol] 9.1 fL Normal 8.1-13.5 [facility] Comment on above: Performed By: #### C DP, BMPX #### [facility] [address] [place] [address] Yarn Cleaner: Josef Rivera MD Platelets (Bld) [#/Vol] 321 10*3/uL Normal 138-453 [facility] Comment on above: Performed By: #### C DP, BMPX #### [address] [id number] [place] [address] Yarn Cleaner: Josef Rivera MD RBC (Bld) [#/Vol] 4.00 10*6/uL Normal 3.95-5.11 [facility] Comment on above: Performed By: #### C DP, BMPX #### [address] [address] Yarn Cleaner: Josef Rivera MD WBC (Bld) [#/Vol] 5.4 10*3/uL Normal 3.5-11.3 [facility] Comment on above: Performed By: #### C DP, BMPX #### [address] [address] Yarn Cleaner: Josef Rivera MD Glucose,Whole Bloodon 2023 Glucose [Mass/Vol] 104 mg/dL Normal 65-105 [facility] Glucose [Mass/Vol] 120 mg/dL High 65-105 [facility] Glucose [Mass/Vol] 97 mg/dL Normal 65-105 [facility] POC Glucose Fingerstickon Glucose [Mass/Vol] 104 mg/dL 65 - 105 mg/dL [facility] Glucose [Mass/Vol] 120 mg/dL High 65 - 105 mg/dL [facility] Interpretation and review of laboratory results Abnormal [facility] Glucose [Mass/Vol] 97 mg/dL 65 - 105 mg/dL [facility] Basic Metab w/rfx MGon 08-29 Anion gap [Moles/Vol] 12 mmol/L Normal 9-16 [facility] Comment on above: Performed By: #### P HO, BMPX, CDP, MG #### [facility] [employer] [address] [place] [address] Yarn Cleaner: Josef Rivera MD Calcium [Mass/Vol] 8.9 mg/dL Normal 8.6-10.4 [facility] Comment on above: Performed By: #### P HO, BMPX, CDP, MG #### [facility] [employer] [address] [place] [address] Yarn Cleaner: Josef Rivera MD Chloride [Moles/Vol] 106 mmol/L Normal 98-107 [facility] Comment on above: Performed By: #### P HO, BMPX, CDP, MG #### [facility] [employer] [address] [place] [address] Yarn Cleaner: Josef Rivera MD CO2 [Moles/Vol] 22 mmol/L Normal 20-31 [facility] Comment on above: Performed By: #### P HO, BMPX, CDP, MG #### [facility] [address] [place] [address] Yarn Cleaner: Josef Rivera MD Creatinine [Mass/Vol] 0.7 mg/dL Normal 0.6-0.9 [facility] Comment on above: Performed By: #### P HO, BMPX, CDP, MG #### [facility] [employer] [address] [place] [address] Yarn Cleaner: Josef Rivera MD GFR/1.73 sq M.predicted among non-blacks MDRD (S/P/Bld) [Vol rate/Area] mL/min/{1.73_m2} Normal >60 [facility] Comment on above: Result Comment: These results are not intended for use in patients <18 years of age. eGFR results are calculated without a race factor using the 2020 CKD-EPI equation. Careful clinical correlation is recommended, particularly when comparing to results calculated using previous equations. The CKD-EPI equation is less accurate in patients with extremes of muscle mass, extra-renal metabolism of creatine, excessive creatine ingestion, or following therapy that affects renal tubular secretion. Performed By: #### P HO, BMPX, CDP, MG #### [facility] [employer] [address] [place] [address] Yarn Cleaner: Josef Rivera MD Glucose [Mass/Vol] 100 mg/dL High 74-99 [facility] Comment on above: Performed By: #### P HO, BMPX, CDP, MG #### [facility] [employer] [address] [place] [address] Yarn Cleaner: Josef Rivera MD Potassium [Moles/Vol] 3.4 mmol/L Low 3.7-5.3 [facility] Comment on above: Performed By: #### P HO, BMPX, CDP, MG #### [facility] [address] [place] [address] Yarn Cleaner: Josef Rivera MD Sodium [Moles/Vol] 140 mmol/L Normal 136-145 [facility] Comment on above: Performed By: #### P HO, BMPX, CDP, MG #### [facility] [employer] [address] [place] [address] Yarn Cleaner: Josef Rivera MD Urea nitrogen [Mass/Vol] 9 mg/dL Normal 6-20 [facility] Comment on above: Performed By: #### P HO, BMPX, CDP, MG #### [facility] [employer] [address] [place] [address] Yarn Cleaner: Josef Rivera MD Basic Metabolic Panel w/ Ref galen to MGon 08-29-2024 Anion gap [Moles/Vol] 12 mmol/L 9 - 16 mmol/L [facility] Calcium [Mass/Vol] 8.9 mg/dL 8.6 - 10. 4 mg/dL [facility] Chloride [Moles/Vol] 106 mmol/L 98 - 10 7 mmol/L [facility] CO2 [Moles/Vol] 22 mmol/L 20 - 31 mmol/L [facility] Creatinine [Mass/Vol] 0.7 mg/dL 0.6 - 0.9 mg/dL [facility] Est, Francisco Javier Crookst Rate - [facility] Comment on above: These results are not intended for use in patients <18 years of age. eGFR results are calculated without a race factor using the 2020 CKD-EPI equation. Careful clinical correlation is recommended, particularly when comparing to results calculated using previous equations. The CKD-EPI equation is less accurate in patients with extremes of muscle mass, extra-renal metabolism of creatine, excessive creatine ingestion, or following therapy that affects renal tubular secretion. Glucose [Mass/Vol] 100 mg/dL High 74 - 99 mg/dL [facility] Interpretation and review of laboratory results Abnormal [facility] Potassium [Moles/Vol] 3.4 mmol/L Low 3.7 - 5.3 mmol/L [facility] Sodium [Moles/Vol] 140 mmol/L 136 - 145 mmol/L [facility] Urea nitrogen [Mass/Vol] 9 mg/dL 6 - 20 mg/dL [facility] CBC with Auto Differentialon 08-29-2024 Basophils (Bld) [#/Vol] [facility] Basophils/100 WBC (Bld) 0 % 0 - 2 % [facility] Eosinophils (Bld) [#/Vol] 0.24 10*3/uL [facility] Eosinophils/100 WBC (Bld) 4 % 1 - 4 % [facility] Erythrocyte distribution width (RBC) [Ratio] 13.1 % 11.8 - 14.4 % [facility] Hematocrit (Bld) [Volume fraction] 35.8 % Low 36.3 - 47.1 % [facility] Hemoglobin (Bld) [Mass/Vol] 11.2 g/dL Low 11.9 - 15.1 g/dL [facility] Immature granulocytes (Bld) [#/Vol] [facility] Immature granulocytes/100 WBC (Bld) 0 % 0 [facility] Interpretation and review of laboratory results Abnormal [facility] Lymphocytes/100 WBC (Bld) 25 % 24 - 43 % [facility] Lymphocytes/100 WBC (Bld) 1.43 % [facility] MCH (RBC) [Entitic mass] 29.2 pg 25.2 - 33.5 pg [facility] MCHC (RBC) [Mass/Vol] 31.3 g/dL 28.4 - 34.8 g/dL [facility] MCV (RBC) [Entitic vol] 93.2 fL 82.6 - 102.9 fL [facility] Monocytes/100 WBC (Bld) 7 % 3 - 12 % [facility] Monocytes/100 WBC (Bld) 0.39 % [facility] Neutrophils/100 WBC (Bld) 63 % 36 - 65 % [facility] Nucleated RBC/100 WBC (Bld) [Ratio] 0.0 % 0.0 per 100 WBC [facility] Platelet mean volume (Bld) [Entitic vol] 9.2 fL 8.1 - 13.5 fL [facility] Platelets (Bld) [#/Vol] 318 10*3/uL [facility] RBC (Bld) [#/Vol] 3.84 10*6/uL Low 3.95 - 5.1 1 m/uL [facility] Segmented neutrophils/100 WBC (Bld) 3.62 % [facility] WBC other (Bld) [#/Vol] 5.7 [facility] CBC with Diffon 08-29-2024 Abs. Basophil <0.03 Normal 0.00-0.20 [facility] Comment on above: Performed By: #### P HO, BMPX, CDP, MG #### [facility] [place] [address] Yarn Cleaner: Josef Rivera MD Abs.Imm.Granulocyte <0.03 Normal 0.00-0.30 [facility] Comment on above: Performed By: #### P HO, BMPX, CDP, MG #### [facility] [employer] [address] [place] [address] Yarn Cleaner: Josef Rivera MD Abs.Neutrophil (Seg) 3.62 k/uL Normal 1.50-8.10 [facility] Comment on above: Performed By: #### P HO, BMPX, CDP, MG #### [facility] [employer] [address] [place] [address] Yarn Cleaner: Josef Rivera MD Basophils/100 WBC (Bld) 0 % Normal 0-2 [facility] Comment on above: Performed By: #### P HO, BMPX, CDP, MG #### [place] [address] Yarn Cleaner: Josef Rivera MD Eosinophils (Bld) [#/Vol] 0.24 10*3/uL Normal 0.00-0.44 [facility] Comment on above: Performed By: #### P HO, BMPX, CDP, MG #### [facility] [employer] [address] [place] [address] Yarn Cleaner: Josef Rivera MD Eosinophils/100 WBC (Bld) 4 % Normal 1-4 [facility] Comment on above: Performed By: #### P HO, BMPX, CDP, MG #### [facility] [employer] [address] [place] [address] Yarn Cleaner: Josef Rivera MD Erythrocyte distribution width (RBC) [Ratio] 13.1 % Normal 11.8-14.4 [facility] Comment on above: Performed By: #### P HO, BMPX, CDP, MG #### [facility] [employer] [address] [place] [address] Yarn Cleaner: Josef Rivera MD Hematocrit (Bld) [Volume fraction] 35.8 % Low 36.3-47.1 [facility] Comment on above: Performed By: #### P HO, BMPX, CDP, MG #### [facility] [employer] [address] [place] [address] Yarn Cleaner: Josef Rivera MD Hemoglobin (Bld) [Mass/Vol] 11.2 g/dL Low 11.9-15.1 [facility] Comment on above: Performed By: #### P HO, BMPX, CDP, MG #### [facility] [employer] [address] [place] [address] Yarn Cleaner: Josef Rivera MD Immature granulocytes/100 WBC (Bld) 0 % Normal 0 [facility] Comment on above: Performed By: #### P HO, BMPX, CDP, MG #### [facility] [employer] [address] [place] [address] Yarn Cleaner: Josef Rivera MD Lymphocytes (Bld) [#/Vol] 1.43 10*3/uL Normal 1.10-3.70 [facility] Comment on above: Performed By: #### P HO, BMPX, CDP, MG #### [facility] [employer] [address] [place] [address] Yarn Cleaner: Josef Rivera MD Lymphocytes/100 WBC (Bld) 25 % Normal 24-43 [facility] Comment on above: Performed By: #### P HO, BMPX, CDP, MG #### [facility] [address] [place] [address] Yarn Cleaner: Josef Rivera MD MCH (RBC) [Entitic mass] 29.2 pg Normal 25.2-33.5 [facility] Comment on above: Performed By: #### P HO, BMPX, CDP, MG #### [facility] [employer] [address] [place] [address] Yarn Cleaner: Josef Rivera MD MCHC (RBC) [Mass/Vol] 31.3 g/dL Normal 28.4-34.8 [facility] Comment on above: Performed By: #### P HO, BMPX, CDP, MG #### [address] [address] Yarn Cleaner: Josef Rivera MD MCV (RBC) [Entitic vol] 93.2 fL Normal 82.6-102.9 [facility] Comment on above: Performed By: #### P HO, BMPX, CDP, MG #### [address] [address] Yarn Cleaner: Josef Rivera MD Monocytes (Bld) [#/Vol] 0.39 10*3/uL Normal 0.10-1.20 [facility] Comment on above: Performed By: #### P HO, BMPX, CDP, MG #### [address] [address] Yarn Cleaner: Josef Rivera MD Monocytes/100 WBC (Bld) 7 % Normal 3-12 [facility] Comment on above: Performed By: #### P HO, BMPX, CDP, MG #### [address] [address] Yarn Cleaner: Josef Rivera MD Neutrophil (Seg) 63 % Normal 36-65 [facility] Comment on above: Performed By: #### P HO, BMPX, CDP, MG #### [address] [address] Yarn Cleaner: Josef Rivera MD NRBC Automated 0.0 per 100 WBC Normal 0.0 [facility] Comment on above: Performed By: #### P HO, BMPX, CDP, MG #### [facility] [employer] [address] [place] [address] Yarn Cleaner: Josef Rivera MD Platelet mean volume (Bld) [Entitic vol] 9.2 fL Normal 8.1-13.5 [facility] Comment on above: Performed By: #### P HO, BMPX, CDP, MG #### [facility] [address] [place] [address] Yarn Cleaner: Josef Rivera MD Platelets (Bld) [#/Vol] 318 10*3/uL Normal 138-453 [facility] Comment on above: Performed By: #### P HO, BMPX, CDP, MG #### [facility] [address] [place] [address] Yarn Cleaner: Josef Rivera MD RBC (Bld) [#/Vol] 3.84 10*6/uL Low 3.95-5.11 [facility] Comment on above: Performed By: #### P HO, BMPX, CDP, MG #### [facility] [address] [place] [address] Yarn Cleaner: Josef Rivera MD WBC (Bld) [#/Vol] 5.7 10*3/uL Normal 3.5-11.3 [facility] Comment on above: Performed By: #### P HO, BMPX, CDP, MG #### [facility] [employer] [facility] [place] [address] Yarn Cleaner: Josef Rivera MD Glucose,Whole Bloodon 2023 Glucose [Mass/Vol] 112 mg/dL High 65-105 [facility] Glucose [Mass/Vol] 114 mg/dL High 65-105 [facility] Glucose [Mass/Vol] 104 mg/dL Normal 65-105 [facility] Glucose [Mass/Vol] 106 mg/dL High 65-105 [facility] Magnesiumon 08-29-2024 Magnesium [Mass/Vol] 2.1 mg/dL 1.6 - 2 .6 mg/dL [facility] Magnesium [Mass/Vol] 2.1 mg/dL Normal 1.6-2.6 [facility] Comment on above: Performed By: #### P HO, BMPX, CDP, MG #### [facility] [address] [place], [place] [id number] Yarn Cleaner: Josef Rivera MD No Panel Informationon 08-29 [facility] POC Glucose Fingerstickon Glucose [Mass/Vol] 112 mg/dL High 65 - 105 mg/dL [facility] Interpretation and review of laboratory results Abnormal [facility] Glucose [Mass/Vol] 114 mg/dL High 65 - 105 mg/dL [facility] Interpretation and review of laboratory results Abnormal [facility] Glucose [Mass/Vol] 104 mg/dL 65 - 105 mg/dL [facility] Interpretation and review of laboratory results Abnormal [facility] Phosphoruson 08-29-2024 Phosphate [Mass/Vol] 4.0 mg/dL 2.5 - 4 .5 mg/dL [facility] Phosphorus, Inorg.on 08-29- 024 Phosphorus, Inorg. 4.0 mg/dL Normal 2.5-4.5 [facility] Comment on above: Performed By: #### P HO, BMPX, CDP, MG #### [facility] [address] [place], [place] [id number] Yarn Cleaner: Josef Rivera MD XR ABDOMEN (KUB) (SINGLE AP VIEW)on 08-29-2024 XR ABDOMEN (KUB) (SINGLE AP VIEW) EXAMINATION: ONE SUPINE XRAY VIEW(S) OF THE ABDOMEN 08/29/2024 7:06 am COMPARISON: 08/28/2024 HISTORY: ORDERING SYSTEM PROVIDED HISTORY: to rule out Large bowel obstruction TECHNOLOGIST PROVIDED HISTORY: to rule out Large bowel obstruction 54-year-old female; rule out large-bowel obstruction FINDINGS: Gas and stool in the rectal vault. Moderate gaseous distention of the rectal vault. Pelvic phleboliths. Mild stool burden. Psoas shadows symmetric in appearance. No abnormally dilated small bowel loops. NG tube distal tip overlying the right upper quadrant likely within the antrum of the stomach. laborer heading leads overlie the upper abdomen. Iliac wings and pubic rami grossly unremarkable in appearance. IMPRESSION: 1. Moderate gaseous distention of the rectal vault. Gas and stool in the rectal vault. 2. Mild stool burden. No abnormally dilated small bowel loops. 3. NG tube distal tip overlying the medial right upper quadrant likely in the antrum of the stomach. Interpreted by: Paco Richardson MD Signed by: Paco Richardson MD 08/29/24 Final result Normal [facility] XR Abdomen Single viewon 1. Moderate gaseous distention of the rectal vault. Gas and stool in the rectal vault. 2. Mild stool burden. No abnormally dilated small bowel loops. 3. NG tube distal tip overlying the medial right upper quadrant likely in the antrum of the stomach. [facility] EXAMINATION: ONE SUPINE XRAY VIEW(S) OF THE ABDOMEN 08/29/2024 7:06 am COMPARISON: 08/28/2024 HISTORY: ORDERING SYSTEM PROVIDED HISTORY: to rule out Large bowel obstruction TECHNOLOGIST PROVIDED HISTORY: to rule out Large bowel obstruction 54-year-old female; rule out large-bowel obstruction FINDINGS: Gas and stool in the rectal vault. Moderate gaseous distention of the rectal vault. Pelvic phleboliths. Mild stool burden. Psoas shadows symmetric in appearance. No abnormally dilated small bowel loops. NG tube distal tip overlying the right upper quadrant likely within the antrum of the stomach. laborer heading leads overlie the upper abdomen. Iliac wings and pubic rami grossly unremarkable in appearance. [facility] Paco Richardson MD - 08/29/2024 EXAMINATION: ONE SUPINE XRAY VIEW(S) OF THE ABDOMEN 08/29/2024 7:06 am COMPARISON: 08/28/2024 HISTORY: ORDERING SYSTEM PROVIDED HISTORY: to rule out Large bowel obstruction TECHNOLOGIST PROVIDED HISTORY: to rule out Large bowel obstruction 54-year-old female; rule out large-bowel obstruction FINDINGS: Gas and stool in the rectal vault. Moderate gaseous distention of the rectal vault. Pelvic phleboliths. Mild stool burden. Psoas shadows symmetric in appearance. No abnormally dilated small bowel loops. NG tube distal tip overlying the right upper quadrant likely within the antrum of the stomach. laborer heading leads overlie the upper abdomen. Iliac wings and pubic rami grossly unremarkable in appearance. IMPRESSION: 1. Moderate gaseous distention of the rectal vault. Gas and stool in the rectal vault. 2. Mild stool burden. No abnormally dilated small bowel loops. 3. NG tube distal tip overlying the medial right upper quadrant likely in the antrum of the stomach. [facility] Radiology Study observation (narrative) [facility] XR Abdomen Single viewOrdere d By: Paco Rihcardson on 08-29-2024 [facility] Work Phone: CBC with Auto Differentialon 08-28-2024 Basophils (Bld) [#/Vol] [facility] Basophils/100 WBC (Bld) 0 % 0 - 2 % [facility] Eosinophils (Bld) [#/Vol] 0.05 10*3/uL [facility] Eosinophils/100 WBC (Bld) 1 % 1 - 4 % [facility] Erythrocyte distribution width (RBC) [Ratio] 13.1 % 11.8 - 14.4 % [facility] Hematocrit (Bld) [Volume fraction] 37.2 % 36.3 - 47.1 % [facility] Hemoglobin (Bld) [Mass/Vol] 11.9 g/dL 11.9 - 15.1 g/dL [facility] Immature granulocytes (Bld) [#/Vol] 0.03 10*3/uL [facility] Immature granulocytes/100 WBC (Bld) 0 % 0 [facility] [facility] Interpretation and review of laboratory results Abnormal [facility] Lymphocytes/100 WBC (Bld) 11 % Low 24 - 43 % [facility] Lymphocytes/100 WBC (Bld) 0.99 % Low [facility] MCH (RBC) [Entitic mass] 29.5 pg 25.2 - 33.5 pg [facility] MCHC (RBC) [Mass/Vol] 32.0 g/dL 28.4 - 34.8 g/dL [facility] MCV (RBC) [Entitic vol] 92.3 fL 82.6 - 102.9 fL [facility] Monocytes/100 WBC (Bld) 5 % 3 - 12 % [facility] Monocytes/100 WBC (Bld) 0.40 % [facility] Neutrophils/100 WBC (Bld) 83 % High 36 - 65 % [facility] Nucleated RBC/100 WBC (Bld) [Ratio] 0.0 % 0.0 per 100 WBC [facility] Platelet mean volume (Bld) [Entitic vol] 9.2 fL 8.1 - 13.5 fL [facility] Platelets (Bld) [#/Vol] 359 10*3/uL [facility] RBC (Bld) [#/Vol] 4.03 10*6/uL 3.95 - 5.1 1 m/uL [facility] [employer] Segmented neutrophils/100 WBC (Bld) 7.44 % [facility] WBC other (Bld) [#/Vol] 8.9 [facility] CBC with Diffon 08-28-2024 Abs. Basophil <0.03 Normal 0.00-0.20 [facility] Comment on above: Performed By: #### C DP, BMPX #### [facility] [employer] [address] [place] [address] Yarn Cleaner: Josef Rivera MD Abs.Imm.Granulocyte 0.03 k/uL Normal 0.00-0.30 [facility] Comment on above: Performed By: #### C DP, BMPX #### [facility] [employer] [address] [place] [address] Yarn Cleaner: Josef Rivera MD Abs.Neutrophil (Seg) 7.44 k/uL Normal 1.50-8.10 [facility] Comment on above: Performed By: #### C DP, BMPX #### [facility] [employer] [address] [place] [address] Yarn Cleaner: Josef Rivera MD Basophils/100 WBC (Bld) 0 % Normal 0-2 [facility] Comment on above: Performed By: #### C DP, BMPX #### [address] [address] Yarn Cleaner: Josef Rivera MD Eosinophils (Bld) [#/Vol] 0.05 10*3/uL Normal 0.00-0.44 [facility] Comment on above: Performed By: #### C DP, BMPX #### [address] [address] Yarn Cleaner: Josef Rivera MD Eosinophils/100 WBC (Bld) 1 % Normal 1-4 [facility] Comment on above: Performed By: #### C DP, BMPX #### [address] [address] Yarn Cleaner: Josef Rivera MD Erythrocyte distribution width (RBC) [Ratio] 13.1 % Normal 11.8-14.4 [facility] Comment on above: Performed By: #### C DP, BMPX #### [address] [address] Yarn Cleaner: Josef Rivera MD Hematocrit (Bld) [Volume fraction] 37.2 % Normal 36.3-47.1 [facility] Comment on above: Performed By: #### C DP, BMPX #### [address] [address] Yarn Cleaner: Josef Rivera MD Hemoglobin (Bld) [Mass/Vol] 11.9 g/dL Normal 11.9-15.1 [facility] Comment on above: Performed By: #### C DP, BMPX #### [address] [address] Yarn Cleaner: Josef Rivera MD Immature granulocytes/100 WBC (Bld) 0 % Normal 0 [facility] Comment on above: Performed By: #### C DP, BMPX #### [facility] [employer] [address] [place] [address] Yarn Cleaner: Josef Rivera MD Lymphocytes (Bld) [#/Vol] 0.99 10*3/uL Low 1.10-3.70 [facility] Comment on above: Performed By: #### C DP, BMPX #### [address] [address] Yarn Cleaner: Josef Rivera MD Lymphocytes/100 WBC (Bld) 11 % Low 24-43 [facility] Comment on above: Performed By: #### C DP, BMPX #### [place] [address] Yarn Cleaner: Josef Rivera MD MCH (RBC) [Entitic mass] 29.5 pg Normal 25.2-33.5 [facility] Comment on above: Performed By: #### C DP, BMPX #### [place] [address] Yarn Cleaner: Josef Rivera MD MCHC (RBC) [Mass/Vol] 32.0 g/dL Normal 28.4-34.8 [facility] Comment on above: Performed By: #### C DP, BMPX #### [place] [address] Yarn Cleaner: Josef Rivera MD MCV (RBC) [Entitic vol] 92.3 fL Normal 82.6-102.9 [facility] Comment on above: Performed By: #### C DP, BMPX #### [place] [address] Yarn Cleaner: Josef Rivera MD Monocytes (Bld) [#/Vol] 0.40 10*3/uL Normal 0.10-1.20 [facility] Comment on above: Performed By: #### C DP, BMPX #### [place] [address] Yarn Cleaner: Josef Rivera MD Monocytes/100 WBC (Bld) 5 % Normal 3-12 [facility] Comment on above: Performed By: #### C DP, BMPX #### [address] [address] Yarn Cleaner: Josef Rivera MD Neutrophil (Seg) 83 % High 36-65 [facility] Comment on above: Performed By: #### C DP, BMPX #### [address] [address] Yarn Cleaner: Josef Rivera MD NRBC Automated 0.0 per 100 WBC Normal 0.0 [facility] Comment on above: Performed By: #### C DP, BMPX #### [address] [address] Yarn Cleaner: Josef Rivera MD Platelet mean volume (Bld) [Entitic vol] 9.2 fL Normal 8.1-13.5 [facility] Comment on above: Performed By: #### C DP, BMPX #### [address] [address] Yarn Cleaner: Josef Rivera MD Platelets (Bld) [#/Vol] 359 10*3/uL Normal 138-453 [facility] Comment on above: Performed By: #### C DP, BMPX #### [address] [address] Yarn Cleaner: Josef Rivera MD RBC (Bld) [#/Vol] 4.03 10*6/uL Normal 3.95-5.11 [facility] Comment on above: Performed By: #### C DP, BMPX #### [address] [address] Yarn Cleaner: Josef Rivera MD WBC (Bld) [#/Vol] 8.9 10*3/uL Normal 3.5-11.3 [facility] Comment on above: Performed By: #### C DP, BMPX #### [address] [address] Yarn Cleaner: Josef Rivera MD Comp Metabolic Profon 2023 Albumin [Mass/Vol] 4.2 g/dL Normal 3.5-5.2 [facility] Comment on above: Performed By: #### C DP, BMPX #### [facility] [address] [place] [address] Yarn Cleaner: Josef Rivera MD Albumin/Glob Ratio 1.4 Normal 1.0-2.5 [facility] Comment on above: Performed By: #### C DP, BMPX #### [address] [address] [employer]arn Cleaner: Josef Rivera MD Alkaline Phos 162 U/L High 35-104 [facility] Comment on above: Performed By: #### C DP, BMPX #### [address] [address] Yarn Cleaner: Josef Rivera MD ALT [Catalytic activity/Vol] 14 U/L Normal 10-35 [facility] Comment on above: Performed By: #### C DP, BMPX #### [address] [address] Yarn Cleaner: Josef Rivera MD Anion gap [Moles/Vol] 11 mmol/L Normal 9-16 [facility] Comment on above: Performed By: #### C DP, BMPX #### [address] [address] Yarn Cleaner: Josef Rivera MD AST [Catalytic activity/Vol] 23 U/L Normal 10-35 [facility] Comment on above: Performed By: #### C DP, BMPX #### [address] [address] Yarn Cleaner: Josef Rivera MD Bilirubin [Mass/Vol] 0.2 mg/dL Normal 0.0-1.2 [facility] Comment on above: Performed By: #### C DP, BMPX #### [address] [address] Yarn Cleaner: Josef Rivera MD Calcium [Mass/Vol] 9.4 mg/dL Normal 8.6-10.4 [facility] Comment on above: Performed By: #### C DP, BMPX #### [address] [address] Yarn Cleaner: Josef Rivera MD Chloride [Moles/Vol] 104 mmol/L Normal 98-107 [facility] Comment on above: Performed By: #### C DP, BMPX #### [address] [address] Yarn Cleaner: Josef Rivera MD CO2 [Moles/Vol] 23 mmol/L Normal 20-31 [facility] Comment on above: Performed By: #### C DP, BMPX #### [address] [address] [employer]arn Cleaner: Josef Rivera MD Creatinine [Mass/Vol] 0.7 mg/dL Normal 0.6-0.9 [facility] Comment on above: Performed By: #### C DP, BMPX #### [address] [address] Yarn Cleaner: Josef Rivera MD GFR/1.73 sq M.predicted among non-blacks MDRD (S/P/Bld) [Vol rate/Area] mL/min/{1.73_m2} Normal >60 [facility] Comment on above: Result Comment: These results are not intended for use in patients <18 years of age. eGFR results are calculated without a race factor using the 2020 CKD-EPI equation. Careful clinical correlation is recommended, particularly when comparing to results calculated using previous equations. The CKD-EPI equation is less accurate in patients with extremes of muscle mass, extra-renal metabolism of creatine, excessive creatine ingestion, or following therapy that affects renal tubular secretion. Performed By: #### C DP, BMPX #### [address] [address] Yarn Cleaner: Josef Rivera MD Glucose [Mass/Vol] 115 mg/dL High 74-99 [facility] Comment on above: Performed By: #### C DP, BMPX #### [address] [address] Yarn Cleaner: Josef Rivera MD Potassium [Moles/Vol] 4.3 mmol/L Normal 3.7-5.3 [facility] Comment on above: Performed By: #### C DP, BMPX #### [address] [address] [employer] Cleaner: Josef Rivera MD Protein [Mass/Vol] 7.1 g/dL Normal 6.6-8.7 [facility] Comment on above: Performed By: #### C DP, BMPX #### [address] [address] Yarn Cleaner: Josef Rivera MD Sodium [Moles/Vol] 138 mmol/L Normal 136-145 [facility] Comment on above: Performed By: #### C DP, BMPX #### [facility] [employer] [address] [place] [address] Yarn Cleaner: Josef Rivera MD Urea nitrogen [Mass/Vol] 9 mg/dL Normal 6-20 [facility] Comment on above: Performed By: #### C DP, BMPX #### [facility] [employer] [address] [place] [address] Yarn Cleaner: Josef Rivera MD [facility] Metabolic [facility] 08-28-2024 Albumin [Mass/Vol] 4.2 g/dL 3.5 - 5.2 g/dL [facility] Albumin/Globulin [Mass ratio] 1.4 {ratio} 1.0 - 2.5 [facility] ALP [Catalytic activity/Vol] 162 U/L High 35 - 104 U/L [facility] ALT [Catalytic activity/Vol] 14 U/L 10 - 35 U/L [facility] Anion gap [Moles/Vol] 11 mmol/L 9 - 16 mmol/L [facility] AST [Catalytic activity/Vol] 23 U/L 10 - 35 U/L [facility] Bilirubin [Mass/Vol] 0.2 mg/dL 0.0 - 1 .2 mg/dL [facility] Calcium [Mass/Vol] 9.4 mg/dL 8.6 - 10. 4 mg/dL [facility] Chloride [Moles/Vol] 104 mmol/L 98 - 10 7 mmol/L [facility] CO2 [Moles/Vol] 23 mmol/L 20 - 31 mmol/L [facility] Creatinine [Mass/Vol] 0.7 mg/dL 0.6 - 0.9 mg/dL [facility] Gray [facility] - [facility] Comment on above: These results are not intended for use in patients <18 years of age. eGFR results are calculated without a race factor using the 2020 CKD-EPI equation. Careful clinical correlation is recommended, particularly when comparing to results calculated using previous equations. The CKD-EPI equation is less accurate in patients with extremes of muscle mass, extra-renal metabolism of creatine, excessive creatine ingestion, or following therapy that affects renal tubular secretion. Glucose [Mass/Vol] 115 mg/dL High 74 - 99 mg/dL [facility] Interpretation and review of laboratory results Abnormal [facility] Potassium [Moles/Vol] 4.3 mmol/L 3.7 - 5.3 mmol/L [facility] Protein [Mass/Vol] 7.1 g/dL 6.6 - 8.7 g/dL [facility] Sodium [Moles/Vol] 138 mmol/L 136 - 145 mmol/L [facility] Urea nitrogen [Mass/Vol] 9 mg/dL 6 - 20 mg/dL [facility] Glucose,Whole Bloodon 2023 Glucose [Mass/Vol] 100 mg/dL Normal 65-105 [facility] Lactic Acidon 08-28-2024 Lactic Acid, Whole Blood 1.2 mmol/L 0.7 - 2.1 mmol/L [facility] Lactic Acid,Whole Bl 1.2 mmol/L Normal 0.7-2.1 [facility] Comment on above: Performed By: #### L ACTIC #### [employer] [facility] [address] [place] [address] Yarn Cleaner: Josef Rivera MD Magnesiumon 08-28-2024 Magnesium [Mass/Vol] 2.1 mg/dL 1.6 - 2 .6 mg/dL [facility] Magnesium [Mass/Vol] 2.1 mg/dL Normal 1.6-2.6 [facility] Comment on above: Performed By: #### C DP, BMPX #### [employer] [address] [place] [address] Yarn Cleaner: Josef Rivera MD POC Glucose Fingerstickon Glucose [Mass/Vol] 100 mg/dL 65 - 105 mg/dL [facility] XR ABDOMEN (KUB) (SINGLE AP VIEW)on 08-28-2024 XR ABDOMEN (KUB) (SINGLE AP VIEW) EXAMINATION: ONE SUPINE XRAY VIEW(S) OF THE ABDOMEN 08/28/2024 11:45 am COMPARISON: None. HISTORY: ORDERING SYSTEM PROVIDED HISTORY: to rule out large bowel obstruction TECHNOLOGIST PROVIDED HISTORY: to rule out large bowel obstruction FINDINGS: The bowel gas pattern is unremarkable, with gas noted in the colon. No significant small bowel gas. There are no abnormal calcifications. Contrast is noted in the bladder. There is a mild infiltrate noted in the left lower lobe, which could represent pneumonia. Bony structures appear normal. IMPRESSION: 1. Nonobstructive bowel gas pattern. 2. Mild left lower lobe infiltrate, which could represent pneumonia. Interpreted by: Rashaad Lopez MD Signed by: Rashaad Lopez MD 08/28/24 Final result Normal [facility] XR Abdomen Single viewon 1. Nonobstructive marium wel gas pattern. 2. Mild left lower lobe infiltrate, which could represent pneumonia. [facility] EXAMINATION: ONE SUPINE XRAY VIEW(S) OF THE ABDOMEN 08/28/2024 11:45 am COMPARISON: None. HISTORY: ORDERING SYSTEM PROVIDED HISTORY: to rule out large bowel obstruction TECHNOLOGIST PROVIDED HISTORY: to rule out large bowel obstruction FINDINGS: The bowel gas pattern is unremarkable, with gas noted in the colon. No significant small bowel gas. There are no abnormal calcifications. Contrast is noted in the bladder. There is a mild infiltrate noted in the left lower lobe, which could represent pneumonia. Bony structures appear normal. [facility] Rashaad Lopez MD - 08/28/2024 EXAMINATION: ONE SUPINE XRAY VIEW(S) OF THE ABDOMEN 08/28/2024 11:45 am COMPARISON: None. HISTORY: ORDERING SYSTEM PROVIDED HISTORY: to rule out large bowel obstruction TECHNOLOGIST PROVIDED HISTORY: to rule out large bowel obstruction FINDINGS: The bowel gas pattern is unremarkable, with gas noted in the colon. No significant small bowel gas. There are no abnormal calcifications. Contrast is noted in the bladder. There is a mild infiltrate noted in the left lower lobe, which could represent pneumonia. Bony structures appear normal. IMPRESSION: 1. Nonobstructive bowel gas pattern. 2. Mild left lower lobe infiltrate, which could represent pneumonia. [facility] Radiology Study observation (narrative) [facility] XR Abdomen Single viewOrdere d By: Rashaad Lopez on 08-28-2024 [facility] Work Phone: Glucose (Bld) [Mass/Vol]on 09-12-2023 Glucose Blood, POC 90 mg/dL [facility] - Hematology and Cell countson 07-13-2024 HbA1c (Bld) [Mass fraction] 5.6 % [facility] No Panel Informationon 07-13 Interpretation and review of laboratory results Normal [facility] Glucose (Bld) [Mass/Vol]Orde red By: Beverly Clemons on 06-20-2024 Glucose Blood, POC 101 mg/dL [facility] - Hematology and Cell countson 06-20-2024 HbA1c (Bld) [Mass fraction] 5.8 % [facility] No Panel InformationOrdered By: Beverly Clemons on 06-20-2024 [facility] Healthcare Office Visiton 05-14-2024 Follow-up visit [id number] Marly Cardoso 1970 F Date Provider Department Center 05/14/2024 [id number]-CYFHKYEDISON KINCAID CARD [facility] Family History Problem Relation Age of Onset Heart attack Father Family Status - Relation Status Age at Father Level of Service:03914 [place] OFFICE/OUTPATIENT ESTABLISHED MOD MDM 30 MIN Reason for Visit and Comments: Hypertension [740222] - Patient here for 2 mo follow up. She was started on lisinopril 10mg daily at last visit. She presented to the ED last month for abdominal pain. EKG was done and showed bradycardia. Palpitations [522308] - Not as bad, still has them Shortness of Breath [629322] - Improving Normal [facility] [place] 05-11-2024 L Specimen: [id number] Received: 05/11/24 Status: XAVI Francis Num: [id number] Spec Type: Surgical Subm Dr: Jennie Ayon MD Tissues: A GASTRIC FOR HP (GASTRIC R/O H PYLORI) B Esophagus Biopsy (ESOPHAGUS BX R/O BARRETTS) Procedures: HE/4, Gross/Micro L4/2, H PYLORI Age/ Patient Sex Location Account Attending Physician Constantino Cardoso 53/F [id number] Jennie Ayon MD SPEC NUM: [id number] RECD: 05/11/24 STATUS: XAVI FRANCIS NUM: [id number] HAYDEN: 05/11/[address]: Jennie Ayon MD ENTERED: 05/11/24 [facility] DR: SPEC TYPE: Surgical DEPT: S ENTERED BY: [id number] RECV BY: [id number] ORDERED: HE/4, Gross/Micro L4/2, H PYLORI ORDERED: HE/4, Gross/Micro L4/2, H PYLORI Supplemental Report Addendum 2 Entered: 05/18/24 Supplemental to add CPT code of immunostain: A, CPT: 42555 Addendum Signed (signature on file) Robby Smyth MD 05/18/241707 Addendum 1 Entered: 05/18/24 Supplemental for findings of H. pylori immunostain: A, -H. pylori immunostain with appropriate control is negative for identified Helicobacter organism or infection Specimen: [id number] Received: 05/11/24 Status: XAVI Larry Num: [id number] Spec Type: Surgical Subm Dr: Jennie Ayon MD Tissues: A GASTRIC FOR HP (GASTRIC R/O H PYLORI) B Esophagus Biopsy (ESOPHAGUS BX R/O BARRETTS) Procedures: HE/4, Gross/Micro L4/2, H PYLORI Patient: Constantino Cardoso [id number] (Continued) Specimen: [id number] Received: 05/11/24 (Continued) Supplemental Report (Continued) Signed (signature on file) Robby Smyth MD 05/17/24 1326 Specimen: [id number] Received: 05/11/24 Status: XAVI Larry Num: [id number] Spec Type: Surgical Subm Dr: Jennie Ayon MD Tissues: A GASTRIC FOR HP (GASTRIC R/O H PYLORI) B Esophagus Biopsy (ESOPHAGUS BX R/O BARRETTS) Procedures: HE/Zack, Gross/Micro L4/2, H PYLORI Patient: Constantino Cardoso [id number] (Continued) Specimen: [id number] Received: 05/11/24 (Continued) Supplemental Report (Continued) Addendum [...] are performed supporting the above interpretation Specimen: [id number] Received: 05/11/24 Status: XAVI Francis Num: [id number] Spec Type: Surgical Subm Dr: Jennie Ayon MD Tissues: A GASTRIC FOR HP (GASTRIC R/O H PYLORI) B Esophagus Biopsy (ESOPHAGUS BX R/O BARRETTS) Procedures: HE/4, Gross/Micro L4/2, H PYLORI Patient: Constantino Cardoso [id number] (Continued) Specimen: [id number] Received: 05/11/24-1431 (Continued) Signed (signature on file) Robby Smyth MD 05/17/24 1326 Specimen: [id number] Madeleine (more content not included)... Normal [facility] Reminderson 04-09-2024 Reminders Reminders From: Ani Jackson To: EU - Administrative; Sent: 02/16/2024 09:54:18 EDT Show up: 03/05/2024 09:54:00 EDT Subject: Ambulatory Reminder Due Date/Time: 05/20/2024 09:54:00 EDT Reminder/Recall Patient needs scheduled for a 3 month f/u with AO in [place], due back mid May. LVM FOR PATIENT TO CALL AND SCHEDULE APPT Pt called back and scheduled appt. Normal [facility] Office Visiton 03-19-2024 Follow-up visit [id number] Marly Cardoso Yovanny 1970 F Date Provider Department Center 03/19/2024 52154-KMRBHNEDISON KINCAID MICHAEL [facility] Family History Problem Relation Age of Onset Heart attack Father Family Status - Relation Status Age at Father Level of Service:58783 [place] OFFICE/OUTPATIENT ESTABLISHED MOD MDM 30 MIN Normal [facility] Coding Summary.on 02-25-2024 Coding Summary. JPPHRtum73EQl3hOd+PG hlYWQ +TV7TDHOhH51dzJUipA9oH3WD TElOSywgQVBQTElOSyIgbmFtZ N9mzLLxAWZi IC8+DR2aESHlKuglzFNil2J3x SU0Z08wze8uTHgkvLO5DNZbFc Onoeqto2nwtYk1EDrxRsxvLcM t NJQixJ28WBI5bN73Xr24uZSjf QUkv4yozPp3SbPdAZOuZKR6wK uyHWlmb1OoKBXgT61vpITmc1Z 6 JQDmzRmnfSRnRgPaqGG9bY6wE Dqtjydzv2vxkuzhYkk3pj05kB Tte3T5mWZ7Q0XvctI5EYGfjBQ g XgfguLGHqU5ezdwhp3vclnptE jNrGAQoFRr1GTx8RUKxtOlfFt FpMA35BLB4TPMerkIyU0EsTRV s eFufCtB3l0J7Sp3NO5JGOakiF 1VNTUFSWTwvdGQ+NO13ro47B4 JvYmkdQxk1RRVqZAV7dRG8kA5 n DUKyNUdcn8H5hQI2C8UyzgZfd e9ed5ddRCAlXCteE06gqZJba2 I1EXPljNS8PGPktXfjMlObnN5 3 Oyc+MZKokPqgm3KfCcruq5cxx 2msnEv7FuebCAOarrIpxHqtSC D8s8WgWw6eXGUbsFA1nQI4gK2 i ZcSrRbB0GKpsV164HeCxeLEbV omkC14pD1IrkFY+ATApAxz9MH WnnFkbXE0jA8KuBLViadykjEJ m qZmpKY3uYBGxlfjbMMSjyI3cB WXwI8u3GuFdGdD1MOkmR1KvHI JouywzMv80iG9gWpHeCdG7LSm u I1KswfW8KKFmiTMoCAedWHK4P 96hx5N8TVPpVISbQPD3oWW3bW 1hbGlnbjogbGVmdDsgdmVydGl j LCtsZNpuC271UMDruEuqNoOjB GluZyBEYXRlOiAgMDYvMjIvMj AyNDwvdGQ+SXPsYAK1eBdaIMI n nSDhXKveUj6mtZhczUnwOI8fT FPzfsicAFAesC6aBFBxfRTmuB vfWY9iKKCmkznnd717WlPyCVJ 0 AIAvsPIwJ4LrpG2rYoTrBTTvE GYrQ7JiySFtNArkC954CVnaRt R7ZQLvinAeL1AxRJFksWcaVjN 0 n4A6Va9Ex4MlfyuuZ0HdmPTjN hZwJrykUUh4Y6WhOxcqqHQ+PC 38JOIlLD42CQn4TRP3lAklMBw i VLEaL8VfiC0xTqZeMWKiXJSwX yc+PHRhYmxlIHdpZHRoPScxMD CuGbGlaHxnSU7dYs0lFWEpPXA v nAemfXCpOfUsc2biPXKcFBjnV P5gmKpfY6EbiLH9CAAuq0d5Pw 23Q65oZ6VbkLR+XUWmkZO1sQJ 0 uG4vYdYiTxR3TAyxB667FsIza AXfEppos1ixt0ktqPx5HuX8SM ZmgcOrwQziAFU5h7PaWe01U27 s IHdpZHRoPSIxNSUiIHZhbGlnb a4vsR9tOi1+HETfjJE6rMF5gL 5hXpTcSjU8HPctP276PxNnhFQ v Vtpeq7sfm4ornXd0SzSzYJVgr dYnkJbsGFI0s7WyNs39Y8OgoN jqy5EfAkx8at76yQMsk4B7wIC 9 U6QaHOVpdxsmfSSpyQzwIO3gD QUhtasfXKIozN7qIRZbL0e4Vk JaEmW1ZMeoY3NbmvQ4IHGmcNM g LICkyJYUeZ3wyelhk4iltjomO fExGVSuXCu1YMu7LVSgkOciJi KnCED9OuB5BGV4nMUydV4akJb n ttgxtU2eHab+PSS5lTQrzVTFL F4pTibynCH+HDDdAQL8xYeeQL vyABZeuK8uXWBhU7v5SyQjYgG 1 GLpnW7OihrL8QRKfsIVzVXGhh SSZyA9sizlkx2bzaascGkJyUY RlLPs2GNs8VTMfvEjdJoFzRJZ 0 QzI7QEX8rVRawU7orIphemwyj G9wOyc+WqzjdGzjWVW5LSm3W7 RrHdw9TXXybZbwRD3yhFUgVVl u Jn7xbImpkYnrPM1nEMFavkfcp 491QxZwc5cnCRLwgXQaFSpqIS V9U04xw7B5DFGpINEvDPQ1oTD 4 bL1tbHunymhmnDUryKutnwTrm KetDErhNIbiB833OKNifQmuAb FfNIv7C0UxGic9ITCbxUxbAI2 n zJMaVDdsGc3ggWydlXsmIY0oP WUnadmnq019QrMdc1ymOHUipZ EbGAlgRHD1X65ya8Y4ZTRyISB w NFY3vZY8rX1phIbpkjtfvHUkw DvaekWtwDxcGEcnLJjrH795VY YkmJejFjJkgMg9Q5EzTig1ASH z zQjiKE7auAOwAEemGr0awBnnf PjsOF3kUXRkyqshv101SpXvs1 hpFTLqcYVvYGxqXPO7V86jb6G 6 OLEzZSUxFLM2aAR2dL8aqTbyc jogbGVmdDsgdmVydGljYWwtYW bkL087VAHsjYsuYnMlhCgzurO g SOnsSQe3E8OoQnjhlWX+PC90Y LEsKL32gAXliUAmm6zjxDv3Ob RsRGQtPAZ6oSqfWJvol2MrQSR t T31wpKLto3P4BRRrkBdmxAMyJ vKwaBZ9zG4pGEmgaqjsr2yrhr yrPkixm0vzsi74yZ22I76fQSz p LZNeWCCuZQJvKHJjkFlkzk8fm G9wIi8+DFRukAU3pDB5sQ6cJM YtAuZ0CNasY485TjQtyCPqWvt j b1ckx9mvbBk5XaQ6YHJixhRka RbrZYP8f3CpWp43L67lKLrbZU DePGYtDZQvKWEneWgxvg1ytS4 w Ii8+KJNibLB1wPO0yG4zGrCeP dH7ABepH226IsJteEDvKlpoO8 5jE6MggZW+ZRNgSpv0TUJagQu s XQ2hxOBzFYxzLk8gNAV9OlQsN qMlLQvkB8DtCDDotmrsjtjakS C1BTZkEMDwqT05Rf4sfXgqEIT w aWIFtH7mucrui2iwvdjwLxWlS ICnAYz4UQn5NNTloLuiJqCtQQ O0NrK3WCH2yICpbJ2erWxnlqb g qQ5oV8VzZGEveotuXd71nA5mL vWaNwA9SMehCct+W4JHWMljAZ FNLNxSRD9PGZYBOP52LD69qKI g r9W6aQI1U3LsXRVfasggwtwfp OQ4NZTyHKSodW80iMUmXXygXx 7mr3J4f235FGGjVUTpaL25Yu9 u pVszUBNxmKVHrF2jfflpz5enr xtzEtXuVTBcXLp5HEu2EZEezQ dzBkBnKQJ2FdQ6WAD9kCJlrV0 h qBlnrkhmbW7fQgr+MDkvMjMvM Fx0RHedwGJ+XTNzUKV2iFntQN zdGIFttU4yHNBlI4k3GhJiIwQ 1 IUaeV9RxTEYcospnNl01gJ7bC yZpWlB1LEgzU4GwyrO5AHBxbQ MiSOwvSFM0N21rl0R6SUTaGOK w JSV3eMW1wB3hvOwuyzwdeTAnd EjuebFyaDpoAIjtBNmgE937PL PayKzdVsLeGCviLDMwYS04VV2 8 qQQlt8C4bUI1A5ZgRXSwcnbbf eozvUD8GLHrUBQbwN26fBKxLK hfUz4hm8W5n868NPPdQBSudK4 7 Pj0sjUvnYVMkgGSVoS7owtccv 8egmpcjNpYrRDNbAAz1TKt0CQ EjwHcjRlEfJUZ5ZmZ2IZV5fLL h xD1naLtjbbqmsI3jNix+RmVtY BwdUI03LG42fITul5S1bRJ6W1 MuDAZtrbbqmzjrjKS8FSBwQBJ w kF70uGWvCMutBh7vs2A8o353B WVaKAVzuX40Jw4rjTfiDTFfhL GNrC8fnbjkj6cqccmpKtHwFBB w ZLo4GSf6LRDarQvdGiFtREO5H rQ1MLO7eWXkyJ5egEjqfkusmG 9wOyc+KSDoIVYwf9Sel1SeBT3 0 FW30T1NlEhpfzVKukIL+PHRhY mxlIHdpZHRoPScxMDAlJyBzdH oqCH6nQg5cZHZuETYztLrqrVO l NsTmo9kbSUDrYLkyYN2krVdhO 2GkfIB1JKOud4n6Xk69I39fV1 JvdXA+UPDpwSX7kCG3nY4oGfA l XtD8RObkP300VaNbiNFgUoubk 9xly9bjfLl0IaDdPAGtseChoH zwAMF4x8WaEn70T10xGGilUGR o GRKdJQAcVLFqaWcahr3boL5qT i8+LRYgaIB7dVM9uQ3eCgSrRn P0BXjjM696JhGhhAFnBeroS58 s C6QjpEN+PHEwLxx9CPJvbSloU W9agMArTPitOh1iZLH5ZnWfJc TrZVjyL7VjRRBymfwmfqvbqXD 6 AMToOWNanU64Op4jqFsjOv2eY JZuRUO2FIQsjLTuQ5EtmA2wAh RzHCHaTIDhT7KtcPXeVKrhI06 6 YIhrBoC3KDTfuwQfZ2VzCGJtd CnuMlM2u4R5Yp8XrIxwmJQuRA 8aUcYqCFt2Q1XtMfk2NKOlaHg s TV9orQRwIKxuRn1asBjhqVzxB T0qYINsdayrs244EwFqo5hxZM XtaGXdHAhxLER8U42jo7J4DDL w SDLmGOO3zYH4rK4vxYhlwddlb GVmdDsgdmVydGljYWwtYWxpZ2 06AKIsmSviDvABBhk7C3KrEkj 0 BVLluChrGW0ccFIiQEoaCr7lc ZtenVugTS2zFVLturffm601Sl Thf5tzYFMqqASeGCrdFJY1H23 s z5O1GFGwVOKqMEP0tWS7sM6uf GlnbjogbGVmdDsgdmVydGljYW hfWChtC820RSJknGsqTi1GMna 8 K7CmMch8OMPfmLvjNU4yuAMdN VkrKq8xbWafwIeeQZ7oIEReyj cza750KqOrm5dpBZKjoWZxPIc t FXU7C16sn4G9ZWPmGZUcELV3a QV2dT5pdQweqabvvRPvwMlibq JtrYdiBMzfFOkpR525OSMrfSb n PlBheWVyOjwvdGQ+KZ30nl57L 5TkNtpzYui1JJNuFKH6vJW5zY 1lGEWfTBrhb3M1mVR8W7ZuauW l fd3vx5bmEJAlD (more content not included)... Normal [facility] Patient Educationon 02-21-20 Patient Education Obstetrics and [...] this condition includes: ? Antibiotic medicine. ? Cuic-jau-yqmvhsv medicines to treat discomfort. ? Drinking enough [...] these instructions at home: Medicines ? Take tlbx-rwf-uoirrwt and prescription medicines only as told by [...] Document Revie (more content not included)... Normal [facility] Urology Office/Clinic Noteon 02-21-2024 Urology Office/Clinic [...] with voice recognition artificial intelligence software, specifically [employer], [email or web address] and or [employer]. 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 (more content not included)... 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-C, [employer] MICROFILM DUPLICATING UNIT SUPERVISOR, FREELANCE WRITER-C, Yolanda X Yolanda X FINAL REPORTS Final [...] Locations R1: This test was performed at: [facility], [address] [place] [address], [address] [place] [address], [facility] Comment on above: Performed By: #### 2 [id number] #### [facility] Laboratory [address] [place] [address] Lab Reportson 02-17-2024 Lab Reports [id number]#1.00TIFF [facility] Lab Reports [id number]#1.00TIFF [facility] Lab Reports [id number]#1.00TIFF [facility] Lab Reports [id number]#1.00TIFF [facility] RAD - Ultrasound Reporton RAD - Ultrasound Report [id number]#1.00TIFF [facility] Screenson 02-17-2024 Screens [id number]#1.00TIFF Normal [facility] URINALYSISOrdered By: SYSTEM SYSTEM on 02-16-2024 Bilirubin Ql (U) Negative Normal Negativemg/ dL [facility] UA Auto SS Clarity (U) Clear (02/16/24 10:01 AM) Normal Clear [facility] UA Auto SS Color (U) Light-Yellow 1 (02/16/24 10:01 AM) Normal Yellow [facility] UA Auto SS Comment on above: Interpretive Data: M icroscopic readings are only performed on those samples that meet specific criteria set forth by [facility] Laboratory. Epithelial cells.squamous Auto (Urine sed) [#/Area] [...] Desc Clean Catch (02/16/24 10:01 AM) Normal [facility] UA Auto SS Urinalysis with Microon 06- Bilirubin Ql (U) Negative Normal Negative [facility] Comment on above: Performed By: #### 4 [id number] #### [facility] Laboratory [address] [place] [address] Clarity (U) Clear Normal Clear [facility] Comment on above: Performed By: #### 4 [id number] #### [facility] Laboratory [address] [place] [address] Color (U) Light-Yellow Normal Yellow [facility] Comment on above: Result Comment: Micr oscopic readings are only performed on those samples that meet specific criteria set forth by [facility] Laboratory. Performed By: #### 4 [id number] #### [facility] [address] [place] [address] Epithelial cells.squamous Auto (Urine sed) [#/Area] 0-2 Invalid Interpretation Code [facility] Comment on above: Performed By: #### 4 [id number] #### [facility] [address] [place] [address] Glucose Ql (U) Negative Normal Negative [facility] Comment on above: Performed By: #### 4 [id number] #### [facility] Laboratory [address] [place] [address] Hemoglobin Auto test strip (U) [Mass/Vol] 1+ mg/dL Abnormal Negative [facility] Comment on above: Performed By: #### 4 [id number] #### [facility] Laboratory [address] [place] [address] Ketones Auto test strip Ql (U) Negative Normal Negative [facility] Comment on above: Performed By: #### 4 [id number] #### [facility] [address] [place] [address] Leukocyte esterase Auto test strip Ql (U) 75 Morgan/uL Abnormal Negative [facility] Comment on above: Performed By: #### 4 [id number] #### [facility] [address] [place] [address] Mucus Auto Ql (U) Trace Normal Negative [facility] Comment on above: Performed By: #### 4 [id number] #### [facility] [address] [place] [address] Nitrite Auto test strip Ql (U) Negative Normal Negative [facility] Comment on above: Performed By: #### 4 [id number] #### [facility] [address] [place] [address] pH (U) 5.5 [pH] Invalid Interpretation Code 5.0-9.0 [facility] Comment on above: Performed By: #### 4 [id number] #### [facility] [address] [place] [address] Protein Ql (U) Negative Normal Negative [facility] Comment on above: Performed By: #### 4 [id number] #### [facility] [address] [place] [address] RBC Ql (U) 0-3 Normal 0-3 [facility] Comment on above: Performed By: #### 4 [id number] #### [facility] [address] [place] [address] Specific gravity (U) [Rel density] 1.021 Invalid Interpretation Code 1.005-1.030 [facility] Comment on above: Performed By: #### 4 [id number] #### [facility] Laboratory [address] [place] [address] Urobilinogen (U) [Mass/Vol] Negative Normal Negative [facility] Comment on above: Performed By: #### 4 [id number] #### [facility] Laboratory [address] [place] [address] WBC Auto (Urine sed) [#/Area] 0-5 Normal 0-5 [facility] Comment on above: Performed By: #### 4 [id number] #### [facility] Laboratory [address] [place] [address] Type of Urine collection method Clean Catch Normal [facility] Comment on above: Performed By: #### 4 [id number] #### [facility] Laboratory [address] [facility] [place] [address] Office Visiton 02-15-2024 Follow-up visit [id number] Marly Cardoso 1970 F Date Provider Department Center 02/15/2024 01812-YHLMECEDISON [facility] Family History Problem Relation Age of Onset Heart attack Father Family Status - Relation Status Age at Father Level of Service:19269 MI OFFICE/OUTPATIENT NEW MODERATE MDM 45 MINUTES Normal [facility] ANES POSTPROC EVALon 023 ANES POSTPROC EVAL HNO ID: [id number] Author: Carlota Jeffrey MD Service: ? Author Type: Anesthesiologist Type: Anesthesia Postprocedure Evaluation Filed: 08/25/2023 5:35 PM Note Text: POST ANESTHESIA EVALUATION NOTE : 1970 Procedure Summary Date: 08/25/23 Room / Location: Gastroenterology Anesthesia Start: 1444 Anesthesia Stop: 1552 Procedure: EGD - THERAPEUTIC, EUS, OR TUBE INTERVENTIONS Diagnosis: Gastroparesis (OTHER) Scheduled Providers: Marques Bradley MD; Carlota Jeffrey MD; Vanessa Mcmillan APRN.CIRCULATION DIRECTOR Responsible Provider: Carlota Jeffrey MD Anesthesia Type: [...] August 25, 2023 TIME: 5:35 PM CSN: [id number] Normal [facility] ANES PRE-OPon 08-25-2023 ANES PRE-OP HNO ID: [id number] Author: Carlota Jeffrey MD Service: ? Author [...] results: No results found for this basename: HCT,HEMATOCRIT,K,POTASSIU M Relevant Problems GI (+) Hiatal hernia Other [...] August 25, 2023 TIME: 11:46 AM CSN: [id number] Normal [facility] HISTORY PHYSICALon HISTORY PHYSICAL HNO ID: [id number] Author: Gavi Bourgeois MD Service: General Surgery Author Type: Fellow Type: HANDP Filed: 08/25/2023 2:35 PM Note Text: ----- Attestation signed by Marques Bradley MD at 08/26/2023 9:38 AM Attending Note I evaluated the patient and personally participated in the cottrell components. I agree with the resident's findings and plan as documented and have discussed the case and management of the patient's care with the resident. Signature: Marques Bradley MD Date: 08/26/2023 Time: 9:38 AM ----- ENDOSCOPY HISTORY AND PHYSICAL EXAMINATION SERVICE DATE: [...] August 25, 2023 TIME: 6:57 AM Normal [facility] NURSING PROGon 08-25-2023 NURSING PROG HNO ID: [id number] Author: Melody Walter, RN Service: Nursing Author [...] None Electronically Signed By: Melody Walter RN [facility] NURSING PROG HNO ID: [id number] Author: Pamela Osuna RN Service: ? Author [...] By: Pamela Navarro RN In Department: GASTROENTEROLOGY [facility] Magda 07-22-2023 CNPN Telephone (GENBMI) ----- CONSTANTINO CARDOSO ([id number]) 1970 F Date Time Provider Department 07/22/23 [...] Encounter Status:Closed by EVELYN BLACK on 07/22/23 [facility] ANES POSTPROC EVALon 023 ANES POSTPROC EVAL HNO ID: [id number] Author: Sly Carter MD Service: ? Author [...] Scheduled Providers: Marques Bradley MD; Amanda Bernard APRN.CIRCULATION DIRECTOR; Sly Carter MD Responsible Provider: Sly Carter [...] July 14, 2023 TIME: 12:26 PM CSN: [id number] Normal [facility] ANES PRE-OPon 07-14-2023 ANES PRE-OP HNO ID: [id number] Author: Sly Carter MD Service: ? Author Type: Anesthesiologist Type: Anesthesia Preprocedure Evaluation Filed: 07/14/2023 9:19 AM Note Text: ANESTHESIOLOGY DAY OF SURGERY NOTE : 1970 Procedure Information Date/Time: 07/14/23929 Scheduled providers: Marques Bradley MD; Amanda Bernard APRN.CIRCULATION DIRECTOR; Sly Carter MD Procedure: EGD - THERAPEUTIC, EUS, OR TUBE INTERVENTIONS Location: Gastroenterology Estimated body mass index is 30.38 kg/m? as calculated from the following: Height as of this encounter: 170.2 cm (5' 7 ). Weight as of this encounter: 88 kg (194 lb). Most recent hematocrit and potassium results: No results found for this basename: HCT,HEMATOCRIT,K,POTASSIU M Relevant Problems GI (+) Hiatal hernia I [...] July 14, 2023 TIME: 9:11 AM CSN: [id number] Normal [facility] EGD - THERAPEUTIC, EUS, OR T UBE INTERVENTIONSon 07-14-2023 [facility] HISTORY PHYSICALon HISTORY PHYSICAL HNO ID: [id number] Author: Raúl Quintero MD Service: General Surgery Author Type: Resident Type: HANDP Filed: 07/14/2023 9:41 AM Note Text: ----- Attestation signed by Marques Bradley MD at 08/05/2023 9:47 AM Attending Note I evaluated the patient and personally participated in the cottrell components. I agree with the resident's findings and plan as documented and have discussed the case and management of the patient's care with the resident. Signature: Marques Bradley MD Date: 08/05/2023 Time: 9:47 AM ----- ENDO HISTORY AND PHYSICAL EXAMINATION SERVICE DATE: [...] medications for this visit. 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 Mehrdad Carter paged : Fer Cardoso in post bed 10: Complaining of 10/10 abdominal pain (gas), mild nausea. Any further orders? Thanks! Mari Spaulding RN BSN [facility] ID: [id number] Author: Mónica Spaulding RN Service: Nursing Author Type: Registered Nurse Type: Nursing Progress Note Filed: 07/14/2023 11:19 AM Note Text: AMBULATORY PATIENT EDUCATION NOTE TOPIC: GI PROCEDURES: Esophagogastroduodenoscop y (EGD) with or without biopies based on [...] Instructions REFERRAL (RECOMMENDATION): None Electronically Signed By: VICKY Swanson [facility] ID: [id number] Author: Candace Jaramillo RN Service: ? Author [...] Candace Jaramillo RN In Department: GASTROENTEROLOGY Normal [facility] SURGICAL PATHOLOGYon 023 ADDENDUM 1: Normal [facility] Comment on above: Order Comment: Speci men Type: TISSUE SPECIMENOrdering Facility: [facility] Address: [address] [place] [address] Result Comment: Give n the background of chronic gastritis a Helicobacter pylori immunostain was performed on block A and is negative for Helicobacter pylori organisms. AEB 07/20/2023 Laboratory Developed Test (LDT) Disclaimer: Performance characteristics of immunohistochemical, immunofluorescent and chromogenic in-situ hybridization tests have been determined by the performing laboratory within [facility]???s [facility] Pathology and Laboratory Medicine Jal ([facility], [facility], [facility], [facility], [facility], [facility], or [facility]) in a manner consistent with CLIA requirements. [...] at 9:30 AM Performed By: #### S ####[facility] LABCLIA [id number] [place] [address] [place] CASE REPORT Normal [facility] Comment on above: Order Comment: Speci men Type: TISSUE SPECIMENOrdering Facility: [facility] Address: [address] [place] [address] Result Comment: [facility] Report Case: [id number] Authorizing Provider: Marques Bradley MD Collected: 07/14/2023 10:42 AM Ordering Location: Gastroenterology Received: 07/14/2023 07:34 PM Pathologist: Marilou Zacarias MD Specimen: STOMACH BIOPSY, R/O H.Pylori Performed By: #### S ####[facility] LABCLIA [id number] [place] [address] [place] DIAGNOSIS COMMENT Immunohistochemical stain for Helicobacter pylori is pending and will be reported as an addendum. Normal [facility] Comment on above: Order Comment: Speci men Type: TISSUE SPECIMENOrdering Facility: [facility] Address: [address] [place] [address] Performed By: #### S ####[facility] LABCLIA [id number] [address] OF [facility] FINAL DIAGNOSIS Normal [facility] Comment on above: Order Comment: Speci men Type: TISSUE SPECIMENOrdering Facility: [facility] Address: [address] [place] [address] Result Comment: Velma james, biopsy: - Chronic inactive gastritis. See comment. AEB/dkclementina 07/18/2023 Performed By: #### S ####[facility]CLIA [id number] [address] FINAL PERFORMING LAB Normal [facility] Comment on above: Order Comment: Speci men Type: TISSUE SPECIMENOrdering Facility: [facility] Address: [address] [place] [address] Result Comment: Diag nostic interpretation performed at [facility], [address] [place] [address] CLIA# [id number] Student Education Specialist: Maurisio Ritchie M.D. Performed By: #### S ####[facility] LABCLIA [id number] [address] OF [place] GROSS DESCRIPTION Normal [facility] Comment on above: Order Comment: Speci men Type: TISSUE SPECIMENOrdering Facility: [facility] Address: [address] [place] [address] Result Comment: Velma JAMES BIOPSY Received in formalin are two pieces of hager, soft tissue aggregating to 0.5 x 0.2 x 0.2 cm. Totally submitted in one cassette. Two Gross examination performed at [facility], [address] [place], [place] [address], [place] [address] KK July 14, 2023 11:10 PM Performed By: #### S ####[facility]CLIA [id number] Dexrex Gear BROD[place]FERNANDA [id number] [address] [place] Lipase Levelon 06-06-2023 Lipase [Catalytic activity/Vol] 33 U/L Normal 13-58 [facility] Comment on above: Performed By: #### 2 [id number] #### [facility] Laboratory [address] [place] [address] [facility] CNPN Telephone (GENBMI) ----- CONSTANTINO CARDOSO ([id number]) 1970 F Date Time Provider Department 05/27/23 [...] Encounter Status:Closed by EVELYN BLACK on 05/27/23 [facility] GASTRIC EMPTYING SOLIDon 05-26-2023 ME GASTRIC EMPTYING SOLID * * *Final Report* * * DATE OF EXAM: May 26 2023 11:11AM [facility] 0017 - ME GASTRIC EMPTYING SOLID / [...] RATE OF GASTRIC EMPTYING OF SOLID MEAL. Blood Bank Credit Clerk: PSCB Transcribe Date/Time: May 26 2023 11:18A Dictated by : SILVANO WELSH MD This examination was interpreted and the report reviewed and electronically signed by: SILVANO WELSH MD on May 26 2023 11:18AM EST [id number] Normal [facility] CNNURSEon 05-25-2023 CNNURSE Nurse Visit (GASTMN) ----- CONSTANTINO CARDOSO ([id number]) 1970 F Date Time Provider Department 05/25/23 8:30 AM NURSE GI LAB 2 GASTMN During your visit today, we recorded the following information about you: Pedro Gonzalez LPN 05/25/2023 4:15 PM Signed Name: Constantino Cardoso CCF#: [id number] Date: 05/25/2023 ESOPHAGEAL MANOMETRY TEST Indication: Nausea [...] .Pedro Gonzalez LPN Referring Provider: MARQUES BRADLEY [[id number]] Allergies As of Date: 05/25/2023 Noted Allergy Reaction FLEXERIL (CYCLOBENZAPRINE) 04/28/2018 7 - Swelling PENICILLIN 04/28/2018 7 - Swelling Date Reviewed: 05/06/2023 Reviewed by: Judy Michaels MA - Fully Assessed Reason for Visit: Procedure [88] Cmt: Manometry Esophageal Visit Diagnosis:Nausea [R11.0] Order(s):MANOMETRY ESOPHAGEAL [63999JWY] Order #: [id number] Prescriptions as of 05/25/2023 - dicyclomine (BENTYL) [...] Encounter Status:Closed by PEDRO GONZALEZ on 05/25/23 Normal [facility] CNPAlayna 05-16-2023 CNPN Telephone (GENBMI) ----- CONSTANTINO CARDOSO ([id number]) 1970 F Date Time Provider Department 05/16/23 [...] Encounter Status:Closed by EVELYN BLACK on 05/16/23 [facility] CNOVon 05-06-2023 CNOV Office Visit (GENBMI ) ----- CONSTANTINO CARDOSO ([id number]) 1970 F Date Time Provider Department 05/06/23 [...] for internal providers or letter via the [employer] for external providers. Chief Complaint: [...] Time: 8:15 AM Referring Provider: IMER CHERRY [[id number]] Allergies As of Date: 05/06/2023 Noted Allergy Reaction (more content not included)... Normal [facility] Magda 05-02-2023 CNPN Telephone ([employer]) ----- CONSTANTINO CARDOSO ([id number]) 1970 F Date Time Provider Department 05/02/23 EVELYN BLACK During your visit today, we recorded the following information about you: Evelyn Black, RN 05/04/2023 1:55 PM Addendum BMI SPECIALTY CARE COORDINATION TELEPHONE ENCOUNTER Chief complaint AND duration dysphagia. Type of procedure: hernia repair hiatal with Dr. MORTENSEN in [place] February of 2019. Sending OP notes Nursing assessment (subjective/objective) . pain in chest area and getting worse, hard to breathe c/o nausea and oral intolerance, using miralax for BM Went to [place] ED March 2023 who told her she needed a stent in her heart..but her c/o were difficulty swallowing and sent pt home and referred her to [facility] and was admitted for almost a [...] HHR a year later @ OSH in [place] Recommendation: appt after records obtained, encouraged small [...] EVELYN BLACK on 05/02/23 [facility] 04-26-2023 CNPN Telephone ([employer]) ----- CONSTANTINO CARDOSO ([id number]) 1970 F Date Time Provider Department 04/26/23 [...] Status:Closed by [facility] BL[facility] ([employer]) ----- CONSTANTINO CARDOSO ([id number]) 1970 F Date Time Provider Department 04/18/23 EVELYN BLACK [facility] During your visit today, we recorded [...] Ma - Fully Assessed 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 - Other [3602] Prescriptions as of 04/18/2023 [...] Status:Closed by EVELYN BLACK on 04/18/23 [facility] CNPN Tele[facility] (GASTSP) ----- CONSTANTINO CARDOSO ([id number]) 1970 F Date Time Provider Department 04/07/23 [...] Status:Closed by YANCY LOPEZ on 04/07/23 Normal [facility] Alanine aminotransferase [En zymatic activity/volume] in Serum or PlasmaOrdered By: Pete Thakkar on 03-23-2023 ALT [Catalytic activity/Vol] 11 U/L 7-52 [facility] Albumin [Mass/volume] in Ser um or Plasma by Bromocresol green (BCG) dye binding methoOrdered By: Pete Thakkar on 03-23-2023 Albumin BCG dye [Mass/Vol] 4.1 g/dL 3.5-5.7 [facility] Alkaline phosphatase [Enzyma tic activity/volume] in Serum or PlasmaOrdered By: Pete Thakkar on 03-23-2023 ALP [Catalytic activity/Vol] 115 U/L 34-104 [facility] Aspartate aminotransferase [ Enzymatic activity/volume] in Serum or PlasmaOrdered By: Pete Thakkar on 03-23-2023 AST [Catalytic activity/Vol] 15 U/L 13-39 [facility] Automated erythrocytes count in urine sediment (number/area)Ordered By: Pete Thakkar on 03-23-2023 RBC Auto (Urine sed) [#/Area] 0-1 [HPF] 0-4 [facility] Automated leukocytes count i n urine sediment (number/area)Ordered By: Pete Thakkar on 03-23-2023 WBC Auto (Urine sed) [#/Area] 0-1 [HPF] 0-4 [facility] Basophils Auto (Bld) [#/Vol] Ordered By: Pete Thakkar on 03-23-2023 Basophils (Bld) [#/Vol] 0.1 10*3/uL 0.0-0.2 [facility] Basophils/100 WBC Auto (Bld) Ordered By: Pete Thakkar on 03-23-2023 Basophils/100 WBC (Bld) 1.0 % . [facility] Bilirubin Test strip Ql (U)O rdered By: Pete Thakkar on 03-23-2023 Bilirubin Ql (U) Negative Negative [facility] Bilirubin.direct [Mass/volum e] in Serum or PlasmaOrdered By: Pete Thakkar on 03-23-2023 Bilirubin.direct [Mass/Vol] 0.10 mg/dL 0.03-0.18 [facility] Bilirubin.total [Mass/volume ] in Serum or PlasmaOrdered By: Pete Thakkar on 03-23-2023 Bilirubin [Mass/Vol] 0.3 mg/dL 0.3-1.0 [facility] Calcium [Mass/volume] in Ser um or PlasmaOrdered By: Pete Thakkar on 03-23-2023 Calcium [Mass/Vol] 9.0 mg/dL 8.6-10.3 [facility] Carbon dioxide, total [Moles /volume] in Serum or PlasmaOrdered By: Pete Thakkar on 03-23-2023 CO2 [Moles/Vol] 24.5 mmol/L 21.0-31.0 [facility] Chloride [Moles/volume] in S cristine or PlasmaOrdered By: Pete Thakkar on 03-23-2023 Chloride [Moles/Vol] 111 mmol/L 98-107 [facility] Color Auto (U)Ordered By: Shoaib Thakkar on 03-23-2023 Color (U) Yellow Yellow [facility] Creatinine [Mass/volume] in Serum or PlasmaOrdered By: Pete Thakkar on 03-23-2023 Creatinine [Mass/Vol] 0.72 mg/dL 0.60-1.20 [facility] Eosinophils Auto (Bld) [#/Vo l]Ordered By: Pete Thakkar on 03-23-2023 Eosinophils (Bld) [#/Vol] 0.3 10*3/uL 0.0-0.45 [facility] Eosinophils/100 WBC Auto (Bl d)Ordered By: Pete Thakkar on 03-23-2023 Eosinophils/100 WBC (Bld) 5.0 % . [facility] Erythrocyte distribution wid th Auto (RBC) [Ratio]Ordered By: Pete Thakkar on 03-23-2023 Erythrocyte distribution width (RBC) [Ratio] 13.6 % 11.9-15.3 [facility] Globulin Calc (S) [Mass/Vol] Ordered By: Pete Thakkar on 03-23-2023 Globulin (S) [Mass/Vol] 2.9 g/dL [facility] Glucose [Mass/volume] in Ser um or PlasmaOrdered By: Pete Thakkar on 03-23-2023 Glucose [Mass/Vol] 79 mg/dL 70-100 [facility] Comment on above: ADA recommended refe rence rangeRandom Glucose Reference Range is dependent on time and content of last meal. Glucose of more than 200 mg/dL in a nonstressed, ambulatory subject supports the diagnosis of Diabetes Mellitus. Hematocrit Auto (Bld) [Volum e fraction]Ordered By: Pete Thakkar on 03-23-2023 Hematocrit (Bld) [Volume fraction] 35.7 % 34.0-46.4 [facility] Hemoglobin [Mass/volume] in BloodOrdered By: Pete Thakkar on 03-23-2023 Hemoglobin (Bld) [Mass/Vol] 12.0 g/dL 11.8-15.4 [facility] Ketones Auto test strip (U) [Mass/Vol]Ordered By: Pete Thakkar on 03-23-2023 Ketones (U) [Mass/Vol] Negative Negative [facility] Laboratory - UrinalysisOrder ed By: Pete Thakkar on 03-23-2023 Hyaline casts LM Ql (Urine sed) None seen [LPF] 0-8 [facility] Leukocytes [#/volume] correc jun for nucleated erythrocytes in Blood by Automated counOrdered By: Pete Thakkar on 03-23-2023 WBC corrected for nucl RBC Auto (Bld) [#/Vol] 6.3 10*3/uL 3.8-11.6 [facility] Lipase [Enzymatic activity/v olume] in Serum or PlasmaOrdered By: Pete Thakkar on 03-23-2023 Lipase [Catalytic activity/Vol] 32.0 U/L 11.0-82.0 [facility] Lymphocytes Auto (Bld) [#/Vo l]Ordered By: Pete Thakkar on 03-23-2023 Lymphocytes (Bld) [#/Vol] 2.3 10*3/uL 1.00-4.8 [facility] Lymphocytes/100 WBC Auto (Bl d)Ordered By: Pete Thakkar on 03-23-2023 Lymphocytes/100 WBC (Bld) 36.1 % . [facility] MCH Auto (RBC) [Entitic mass ]Ordered By: Pete Thakkar on 03-23-2023 MCH (RBC) [Entitic mass] 29.2 pg 24.7-34.3 [facility] MCHC Auto (RBC) [Mass/Vol]Or dered By: Pete Thakkar on 03-23-2023 MCHC (RBC) [Mass/Vol] 33.7 g/dL 32.0-35.0 [facility] MCV Auto (RBC) [Entitic vol] Ordered By: Pete Thakkar on 03-23-2023 MCV (RBC) [Entitic vol] 86.7 fL 80-100 [facility] Monocyte distribution width [Entitic volume] in Blood by AutomatedOrdered By: Pete Thakkar on 03-23-2023 Monocyte distribution width Auto (Bld) [Entitic vol] 16.44 % 0.00-20.00 [facility] Monocytes Auto (Bld) [#/Vol] Ordered By: Pete Thakkar on 03-23-2023 Monocytes (Bld) [#/Vol] 0.5 10*3/uL 0.0-0.8 [facility] Monocytes/100 WBC Auto (Bld) Ordered By: Pete Thakkar on 03-23-2023 Monocytes/100 WBC (Bld) 7.7 % . [facility] Neutrophils Auto (Bld) [#/Vo l]Ordered By: Pete Thakkar on 03-23-2023 Neutrophils (Bld) [#/Vol] 3.2 10*3/uL 1.8-7.7 [facility] Neutrophils/100 WBC Auto (Bl d)Ordered By: Pete Thakkar on 03-23-2023 Neutrophils/100 WBC (Bld) 50.2 % . [facility] Nitrite Test strip Ql (U)Ord ered By: Pete Thakkar on 03-23-2023 Nitrite Ql (U) Negative Negative [facility] No Panel InformationOrdered By: Pete Thakkar on 03-23-2023 Estimated GFR (CKD-EPI) > 60.0 mL/Min [facility] Creatinine Clearance (Chem 105.27 [facility] Nucleated erythrocytes [Pres ence] in Blood by Automated countOrdered By: Pete Thakkar on 03-23-2023 Nucleated RBC Auto Ql (Bld) 0.1 /100{WBC} 0-0.5 [facility] Platelet mean volume Auto (B ld) [Entitic vol]Ordered By: Pete Thakkar on 03-23-2023 Platelet mean volume (Bld) [Entitic vol] 7.6 fL 6.3-10.7 [facility] Platelets Auto (Bld) [#/Vol] Ordered By: Pete Thakkar on 03-23-2023 Platelets (Bld) [#/Vol] 357 10*3/uL 150-450 [facility] Potassium [Moles/volume] in Serum or PlasmaOrdered By: Pete Thakkar on 03-23-2023 Potassium [Moles/Vol] 3.6 mmol/L 3.5-5.1 [facility] Protein Auto test strip (U) [Mass/Vol]Ordered By: Pete Thakkar on 03-23-2023 Protein (U) [Mass/Vol] Negative Negative [facility] Protein [Mass/volume] in Ser um or PlasmaOrdered By: Pete Thakkar on 03-23-2023 Protein [Mass/Vol] 7.0 g/dL 6.4-8.9 [facility] RBC Auto (Bld) [#/Vol]Ordere d By: Pete Thakkar on 03-23-2023 RBC (Bld) [#/Vol] 4.12 10*6/uL 3.60-5.00 [facility] Serum or plasma albumin/glob ulin mass ratioOrdered By: Pete Thakkar on 03-23-2023 Albumin/Globulin [Mass ratio] 1.4 {ratio} [facility] Serum or plasma anion gap de terminationOrdered By: Pete Thakkar on 03-23-2023 Anion gap [Moles/Vol] 10.1 mmol/L 6.0-15.0 [facility] Serum or plasma non-glucuron idated bilirubin measurement (mass/volume)Ordered By: Pete Thakkar on 03-23-2023 Bilirubin.indirect [Mass/Vol] 0.2 mg/dL [facility] Sodium [Moles/volume] in Ser um or PlasmaOrdered By: Pete Thakkar on 03-23-2023 Sodium [Moles/Vol] 142 mmol/L 136-145 [facility] Specific gravity Auto test s trip (U) [Rel density]Ordered By: Pete Thakkar on 03-23-2023 Specific gravity (U) [Rel density] 1.048 1.001-1.030 [facility] Squamous epithelial cells de tection in urine sediment by light microscopyOrdered By: Pete Thakkar on 03-23-2023 Epithelial cells.squamous LM Ql (Urine sed) None seen [HPF] 0-2 [facility] Troponin I.cardiac [Mass/vol ume] in Serum or Plasma by Detection limit <= 0.01 ng/Ordered By: Pete Thakkar on 03-23-2023 Troponin I.cardiac DL <= 0.01 ng/mL [Mass/Vol] 12.2 pg/mL 0.0-15.0 [facility] Urea nitrogen [Mass/volume] in Serum or PlasmaOrdered By: Pete Thakkar on 03-23-2023 Urea nitrogen [Mass/Vol] 24 mg/dL 7-25 [facility] Urine bacteria detection by automated methodOrdered By: Pete Thakkar on 03-23-2023 Bacteria Auto Ql (U) 1+ None Seen [facility] Urine clarity by refractomet ry automatedOrdered By: Pete Thakkar on 03-23-2023 Clarity Refractometry automated (U) Clear Clear [facility] Urine glucose measurement by automated test strip (mass/volume)Ordered By: Pete Thakkar on 03-23-2023 Glucose Auto test strip (U) [Mass/Vol] Normal mg/dL Normal [facility] Urine hemoglobin detection b y automated test stripOrdered By: Pete Thakkar on 03-23-2023 Hemoglobin Auto test strip Ql (U) Trace Negative [facility] Urine leukocyte esterase det ection by automated test stripOrdered By: Pete Thakkar on 03-23-2023 Leukocyte esterase Auto test strip Ql (U) Negative Negative [facility] Urobilinogen Auto test strip (U) [Mass/Vol]Ordered By: Pete Thakkar on 03-23-2023 Urobilinogen (U) [Mass/Vol] Normal mg/dL Normal [facility] WBC Auto (Bld) [#/Vol]Ordere d By: Pete Thakkar on 03-23-2023 WBC (Bld) [#/Vol] 6.3 10*3/uL 3.8-11.6 [facility] pH Auto test strip (U)Ordere d By: Pete Thakkar on 03-23-2023 pH (U) 5.0 [pH] 5.0-9.0 [facility] Activated partial thrombopla stin time (aPTT) in platelet poor plasma by coagulation aOrdered By: Conner Griffith on 02-15-2023 aPTT Coag (PPP) [Time] 37.0 s 25.1-36.5 [facility] Alanine aminotransferase [En zymatic activity/volume] in Serum or PlasmaOrdered By: Conner Griffith on 02-15-2023 ALT [Catalytic activity/Vol] 13 U/L 7-52 [facility] Albumin [Mass/volume] in Ser um or Plasma by Bromocresol green (BCG) dye binding methoOrdered By: Conner Griffith on 02-15-2023 Albumin BCG dye [Mass/Vol] 4.3 g/dL 3.5-5.7 [facility] Alkaline phosphatase [Enzyma tic activity/volume] in Serum or PlasmaOrdered By: Conner Griffith on 02-15-2023 ALP [Catalytic activity/Vol] 124 U/L 34-104 [facility] Aspartate aminotransferase [ Enzymatic activity/volume] in Serum or PlasmaOrdered By: Conner Griffith on 02-15-2023 AST [Catalytic activity/Vol] 15 U/L 13-39 [facility] Basophils Auto (Bld) [#/Vol] Ordered By: Conner Griffith on 02-15-2023 Basophils (Bld) [#/Vol] 0.0 10*3/uL 0.0-0.2 [facility] Basophils/100 WBC Auto (Bld) Ordered By: Conner Griffith on 02-15-2023 Basophils/100 WBC (Bld) 0.6 % . [facility] Bilirubin.direct [Mass/volum e] in Serum or PlasmaOrdered By: Conner Griffith on 02-15-2023 Bilirubin.direct [Mass/Vol] 0.00 mg/dL 0.03-0.18 [facility] Comment on above: If the DBIL is less than 0.1, IBIL is not able to becalculated. Bilirubin.total [Mass/volume ] in Serum or PlasmaOrdered By: Conner Griffith on 02-15-2023 Bilirubin [Mass/Vol] 0.4 mg/dL 0.3-1.0 [facility] Calcium [Mass/volume] in Ser um or PlasmaOrdered By: Conner Griffith on 02-15-2023 Calcium [Mass/Vol] 9.3 mg/dL 8.6-10.3 [facility] Carbon dioxide, total [Moles /volume] in Serum or PlasmaOrdered By: Conner Griffith on 02-15-2023 CO2 [Moles/Vol] 25.3 mmol/L 21.0-31.0 [facility] Chloride [Moles/volume] in S cristine or PlasmaOrdered By: Conner Griffith on 02-15-2023 Chloride [Moles/Vol] 106 mmol/L 98-107 [facility] Creatinine [Mass/volume] in Serum or PlasmaOrdered By: Conner Griffith on 02-15-2023 Creatinine [Mass/Vol] 0.77 mg/dL 0.60-1.20 [facility] Eosinophils Auto (Bld) [#/Vo l]Ordered By: Conner Griffith on 02-15-2023 Eosinophils (Bld) [#/Vol] 0.2 10*3/uL 0.0-0.45 [facility] Eosinophils/100 WBC Auto (Bl d)Ordered By: Conner Griffith on 02-15-2023 Eosinophils/100 WBC (Bld) 4.0 % . [facility] Erythrocyte distribution wid th Auto (RBC) [Ratio]Ordered By: Conner Griffith on 02-15-2023 Erythrocyte distribution width (RBC) [Ratio] 13.5 % 11.9-15.3 [facility] Globulin Calc (S) [Mass/Vol] Ordered By: Conner Griffith on 02-15-2023 Globulin (S) [Mass/Vol] 3.0 g/dL [facility] Glucose [Mass/volume] in Ser um or PlasmaOrdered By: Conner Griffith on 02-15-2023 Glucose [Mass/Vol] 94 mg/dL 70-100 [facility] Comment on above: ADA recommended refe rence rangeRandom Glucose Reference Range is dependent on time and content of last meal. Glucose of more than 200 mg/dL in a nonstressed, ambulatory subject supports the diagnosis of Diabetes Mellitus. Hematocrit Auto (Bld) [Volum e fraction]Ordered By: Conner Griffith on 02-15-2023 Hematocrit (Bld) [Volume fraction] 38.4 % 34.0-46.4 [facility] Hemoglobin [Mass/volume] in BloodOrdered By: Conner Griffith on 02-15-2023 Hemoglobin (Bld) [Mass/Vol] 13.0 g/dL 11.8-15.4 [facility] Laboratory - CoagulationOrde red By: Conner Griffith on 02-15-2023 PT Coag (PPP) [Time] 11.7 s 9.0-12.9 [facility] Leukocytes [#/volume] correc jun for nucleated erythrocytes in Blood by Automated counOrdered By: Conner Griffith on 02-15-2023 WBC corrected for nucl RBC Auto (Bld) [#/Vol] 5.2 10*3/uL 3.8-11.6 [facility] Lipase [Enzymatic activity/v olume] in Serum or PlasmaOrdered By: Conner Griffith on 02-15-2023 Lipase [Catalytic activity/Vol] 19.0 U/L 11.0-82.0 [facility] Lymphocytes Auto (Bld) [#/Vo l]Ordered By: Conner Griffith on 02-15-2023 Lymphocytes (Bld) [#/Vol] 1.8 10*3/uL 1.00-4.8 [facility] Lymphocytes/100 WBC Auto (Bl d)Ordered By: Conner Griffith on 02-15-2023 Lymphocytes/100 WBC (Bld) 33.8 % . [facility] MCH Auto (RBC) [Entitic mass ]Ordered By: Conner Griffith on 02-15-2023 MCH (RBC) [Entitic mass] 29.4 pg 24.7-34.3 [facility] MCHC Auto (RBC) [Mass/Vol]Or dered By: Conner Griffith on 02-15-2023 MCHC (RBC) [Mass/Vol] 33.8 g/dL 32.0-35.0 [facility] MCV Auto (RBC) [Entitic vol] Ordered By: Conner Griffith on 02-15-2023 MCV (RBC) [Entitic vol] 86.8 fL 80-100 [facility] Monocyte distribution width [Entitic volume] in Blood by AutomatedOrdered By: Conner Griffith on 02-15-2023 Monocyte distribution width Auto (Bld) [Entitic vol] 18.21 % 0.00-20.00 [facility] Monocytes Auto (Bld) [#/Vol] Ordered By: Conner Griffith on 02-15-2023 Monocytes (Bld) [#/Vol] 0.3 10*3/uL 0.0-0.8 [facility] Monocytes/100 WBC Auto (Bld) Ordered By: Conner Griffith on 02-15-2023 Monocytes/100 WBC (Bld) 4.8 % . [facility] Neutrophils Auto (Bld) [#/Vo l]Ordered By: Conner Griffith on 02-15-2023 Neutrophils (Bld) [#/Vol] 3.0 10*3/uL 1.8-7.7 [facility] Neutrophils/100 WBC Auto (Bl d)Ordered By: Conner Griffith on 02-15-2023 Neutrophils/100 WBC (Bld) 56.8 % . [facility] No Panel InformationOrdered By: Conner Griffith on 02-15-2023 Estimated GFR (CKD-EPI) > 60.0 mL/Min [facility] Creatinine Clearance (Chem 98.01 [facility] Nucleated erythrocytes [Pres ence] in Blood by Automated countOrdered By: Conner Griffith on 02-15-2023 Nucleated RBC Auto Ql (Bld) 0.2 /100{WBC} 0-0.5 [facility] Platelet mean volume Auto (B ld) [Entitic vol]Ordered By: Conner Griffith on 02-15-2023 Platelet mean volume (Bld) [Entitic vol] 7.3 fL 6.3-10.7 [facility] Platelet poor plasma interna tional normalized ratio (INR) by coagulation assay (relatOrdered By: Conner Griffith on 02-15-2023 INR Coag (PPP) [Relative time] 1.0 {INR} [facility] Comment on above: INR Therapeutic Rang [...] 02-15-2023 Platelets (Bld) [#/Vol] 385 10*3/uL 150-450 [facility] Potassium [Moles/volume] in Serum or PlasmaOrdered By: Conner Griffith on 02-15-2023 Potassium [Moles/Vol] 3.9 mmol/L 3.5-5.1 [facility] Protein [Mass/volume] in Ser um or PlasmaOrdered By: Conner Griffith on 02-15-2023 Protein [Mass/Vol] 7.3 g/dL 6.4-8.9 [facility] RBC Auto (Bld) [#/Vol]Ordere d By: Conner Griffith on 02-15-2023 RBC (Bld) [#/Vol] 4.43 10*6/uL 3.60-5.00 [facility] Serum or plasma albumin/glob ulin mass ratioOrdered By: Conner Griffith on 02-15-2023 Albumin/Globulin [Mass ratio] 1.4 {ratio} [facility] Serum or plasma anion gap de terminationOrdered By: Conner Griffith on 02-15-2023 Anion gap [Moles/Vol] 12.6 mmol/L 6.0-15.0 [facility] Serum or plasma non-glucuron idated bilirubin measurement (mass/volume)Ordered By: Conner Griffith on 02-15-2023 Bilirubin.indirect [Mass/Vol] 0.4 mg/dL [facility] Sodium [Moles/volume] in Ser um or PlasmaOrdered By: Conner Griffith on 02-15-2023 Sodium [Moles/Vol] 140 mmol/L 136-145 [facility] Urea nitrogen [Mass/volume] in Serum or PlasmaOrdered By: Conner Griffith on 02-15-2023 Urea nitrogen [Mass/Vol] 14 mg/dL 7-25 [facility] WBC Auto (Bld) [#/Vol]Ordere d By: Conner Griffith on 02-15-2023 WBC (Bld) [#/Vol] 5.2 10*3/uL 3.8-11.6 [facility] MG MAMM SCREEN 3D MACARIO CADon 11-30-2022 MG MAMM SCREEN 3D MACARIO CAD Normal [facility] ER URINE PROFILEon 3 Bilirubin Ql (U) Negative Normal NEGATIVE [facility] Comment on above: Performed By: #### E RUR ####[facility] [address] [place] [address]DrNeo Smyth Clarity (U) CLEAR Normal CLEAR [facility] Comment on above: Performed By: #### E RUR ####[facility] [address] [place] [address]DrNeo Smyth Color (U) YELLOW Normal YELLOW [facility] Comment on above: Performed By: #### E RUR ####[facility] [address] [place] [address]Dr. Tadeo ENG A micrscopic examina tion will be performed if indicated. Normal [facility] Comment on above: Performed By: #### E RUR ####[facility] [address] [place] [address]Dr. Tadeo Smyth Glucose Ql (U) Negative Normal NEGATIVE [facility] Comment on above: Performed By: #### E RUR ####[facility] [address] [place] [address]Dr. Tadeo Smyth Hemoglobin Ql (U) TRACE-INTACT Abnormal NEGATIVE [facility] Comment on above: Performed By: #### E RUR ####[facility] [address] [place], [place] [address]Dr. Tadeo Smyth Ketones Ql (U) Negative Normal NEGATIVE [facility] Comment on above: Performed By: #### E RUR ####[facility] [address] [place], [place] [address]Dr. Tadeo Smyth LEUKOCYTES Negative Normal NEGATIVE [facility] Comment on above: Performed By: #### E RUR ####[facility] [address] [place], [place] [address]Dr. Tadeo Smyth Nitrite Ql (U) Negative Normal NEGATIVE [facility] Comment on above: Performed By: #### E RUR ####[facility] [address] [place], [place] [address]Dr. Tadeo Smyth pH (U) 6.0 [pH] Normal 5-9 [facility] Comment on above: Performed By: #### E RUR ####[facility] [address] [place], [place] [address]Dr. Tadeo Smyth SPEC GRAVITY >=1.030 Abnormal 1.005-<=1.0 25 [facility] Comment on above: Performed By: #### E RUR ####[facility] [address] [place], [place] [address]Dr. Tadeo Smyth UA PROTEIN Negative Normal NEGATIVE/ TRACE [facility] Comment on above: Performed By: #### E RUR ####[facility] [address] [place] [address]Dr. Tadeo Smyth UR MICRO IND NOT INDICATED Normal [facility] Comment on above: Performed By: #### E RUR ####[facility] [address] [place] [address]Dr. Tadeo Smyth Urobilinogen Qn (U) 0.2 {Benito'U}/dL Normal 0.2 - 1. 0 [facility] Comment on above: Performed By: #### E RUR ####[facility] [address] [place], [place] [address]Dr. Tadeo Smyth XR ABD FLAT UP_PA Kasey 11-28 XR ABD FLAT UP_PA CH Normal [facility] AMYLASEon 11-27-2022 Amylase [Catalytic activity/Vol] 63 U/L Normal 25-115 [facility] Comment on above: Performed By: #### L IPA, VIJI, CMP ####[facility] [address] [place], [place] [address]Dr. Tadeo Smyth CBC AUTO DIFFon 11-27-2022 BASO # 0.0 103/ul Normal 0.0-0.1 [facility] Comment on above: Performed By: #### C BC ####[facility] [address] [place] [address]Dr. Margotnicole Smyth Basophils/100 WBC (Bld) 0.4 % Normal 0.2-2.0 [facility] Comment on above: Performed By: #### C BC ####[facility] [address] [place], [place] [address]Dr. Tadeo Smyth EO # 0.2 103/ul Normal 0.0-0.7 [facility] Comment on above: Performed By: #### C BC ####[facility] [address] [place] [address]Dr. Tadeo Smyth Eosinophils/100 WBC (Bld) 2.8 % Normal 0.9-7.0 [facility] Comment on above: Performed By: #### C BC ####[facility] [address] [place] [address]Dr. Tadeo Smyth Erythrocyte distribution width (RBC) [Ratio] 13.2 % Normal 11.0-15.0 [facility] Comment on above: Performed By: #### C BC ####[facility] [address] [place] [address]Dr. Tadeo Smyth Hematocrit (Bld) [Volume fraction] 42.6 % Normal 36.0-48.0 [facility] Comment on above: Performed By: #### C BC ####[facility] [address] [place], [place] [address]Dr. Tadeo Smyth Hemoglobin (Bld) [Mass/Vol] 13.6 g/dL Normal 12.0-16.0 [facility] Comment on above: Performed By: #### C BC ####[facility] [address] [place], [place] [address]Dr. Tadeo Smyth IG # 0.02 10e3/ul Normal 0.00-0.03 [facility] Comment on above: Performed By: #### C BC ####[facility] [address] [place], [place] [address]Dr. Tadeo Smyth IG % 0.3 % Normal 0.0-0.5 [facility] Comment on above: Performed By: #### C BC ####[facility] [address] [place], [place] [address]Dr. Tadeo Smyth LYMPH # 2.2 103/ul Normal 1.2-3.8 [facility] Comment on above: Performed By: #### C BC ####[facility] [address] [place], [place] [address]Dr. Tadeo Smyth Lymphocytes/100 WBC (Bld) 32.1 % Normal 20.5-60.0 [facility] Comment on above: Performed By: #### C BC ####[facility] [address] [place], [place] [address]Dr. Tadeo Smyth MANUAL DIFF REQ NO Normal [facility] Comment on above: Performed By: #### C BC ####[facility] [address] [place] [id number]. Tadeo Smyth MCH (RBC) [Entitic mass] 29.6 pg Normal 26.7-34.0 [facility] Comment on above: Performed By: #### C BC ####[facility] [address] [place] [address]Dr. Tadeo Smyth MCHC (RBC) [Mass/Vol] 31.9 g/dL Normal 29.9-35.2 [facility] Comment on above: Performed By: #### C BC ####[facility] [address] [place], [place] [id number]. Tadeo Smyth MCV (RBC) [Entitic vol] 92.6 fL Normal 81.0-99.0 [facility] Comment on above: Performed By: #### C BC ####[facility] [address] [place], [place] [address]Dr. Tadeo Haja MONO # 0.2 103/ul Critically low 0.3-0.8 [facility] Comment on above: Performed By: #### C BC ####[facility] [address] [place], [place] [address]Dr. Tadeo Smyth Monocytes/100 WBC (Bld) 3.2 % Normal 1.7-12.0 [facility] Comment on above: Performed By: #### C BC ####[facility] [address] [place], [place] [address]Dr. Tadeo Smyth NEUT # 4.2 103/ul Normal 1.4-6.5 [facility] Comment on above: Performed By: #### C BC ####[facility] [address] [place], [place] [address]Dr. Tadeo Haja Neutrophils/100 WBC (Bld) 61.2 % Normal 43.0-75.0 [facility] Comment on above: Performed By: #### C BC ####[facility] [address] [place], [place] [address]Dr. Tadeo Smyth Platelet mean volume (Bld) [Entitic vol] 9.0 fL Critically low 9.5-13.5 [facility] Comment on above: Performed By: #### C BC ####[facility] [address] [place] [id number]. Tadeo Smyth PLT 392 103/ul Normal 150-450 [facility] Comment on above: Performed By: #### C BC ####[facility] [address] [place] [id number]. Tadeo Smyth RBC 4.60 106/ul Normal 4.20-5.40 [facility] Comment on above: Performed By: #### C BC ####[facility] [address] [place] [id number]. Tadeo Smyth WBC 6.9 103/ul Normal 4.0-11.0 [facility] Comment on above: Performed By: #### C BC ####[facility] [address] [place] [address]Dr. Tadeo Smyth LIPASEon 11-27-2022 Lipase [Catalytic activity/Vol] 100.0 U/L Normal 73.0-393.0 [facility] Comment on above: Performed By: #### L IPA, VIJI, CMP ####[facility] [address] [place] [address]Dr. Tadeo Smyth PROF 14(COMP METB)on 023 Albumin [Mass/Vol] 3.5 g/dL Normal 3.4-5.0 [facility] Comment on above: Performed By: #### L IPA, VIJI, CMP ####[facility] [address] [place] [address]Dr. Tadeo Smyth Albumin/Globulin [Mass ratio] 0.9 {ratio} Normal [facility] Comment on above: Performed By: #### L IPA, VIJI, CMP ####[facility] Dsrvrxdpzr[address] [place] [address]Dr. Tadeo Smyth ALP [Catalytic activity/Vol] 166 U/L Critically high 46-116 [facility] Comment on above: Performed By: #### L IPA, VIJI, CMP ####[facility] Oohfmyefdf[address] [place] [address]Dr. Tadeo Smyth ALT [Catalytic activity/Vol] 25 U/L Normal 14-59 [facility] Comment on above: Performed By: #### L IPA VIJI, CMP ####[facility] Ohxkxpgjzv89[address] [place] [address]Dr. Tadeo Smyth Anion gap [Moles/Vol] 12.4 mmol/L Normal [facility] Comment on above: Performed By: #### L IPA VIJI, CMP ####[facility] Bulkoovajr[address] [place], [place] [address]Dr. Tadeo Smyth AST [Catalytic activity/Vol] 18 U/L Normal 15-37 [facility] Comment on above: Performed By: #### L IPA VIJI, CMP ####[facility] Hudkkigqka[address] [place], [place] [address]Dr. Tadeo Smyth Bilirubin [Mass/Vol] 0.3 mg/dL Normal 0.2-1.0 [facility] Comment on above: Performed By: #### L ISABEL VIJI, CMP ####[facility] Rtwnovuzhc[address] [place], [place] [address]Dr. Tadeo Smyth Calcium [Mass/Vol] 9.1 mg/dL Normal 8.5-10.1 [facility] Comment on above: Performed By: #### L ISABEL VIJI, CMP ####[facility] Hruxzkicsl96[address] [place], [place] [address]Dr. Tadeo Smyth Chloride [Moles/Vol] 104 mmol/L Normal 98-107 [facility] Comment on above: Performed By: #### L IPA VIJI, CMP ####[facility] Lzgqcxuwav9189[address] [place], [place] [address]Dr. Tadeo Smyth CO2 [Moles/Vol] 25.0 mmol/L Normal 21.0-32.0 [facility] Comment on above: Performed By: #### L IPA VIJI, CMP ####[facility] Fggjggwzez332[address] [place], [place] [address]Dr. Tadeo Smyth Creatinine [Mass/Vol] 0.87 mg/dL Normal 0.55-1.02 [facility] Comment on above: Performed By: #### L IPA VIJI, CMP ####[facility] Dcqpzpkytl[address] [place] [address]Dr. Tadeo Smyth EGFR-AF KOSOVAN >60 Normal >=60 [facility] Comment on above: Performed By: #### L VIJI HALL, CMP ####[facility] Khorlbrmty[address] [place] [address]Dr. Tadeo Smyth EGFR-NON AF KOSOVAN >60 Normal >=60 [facility] Comment on above: Performed By: #### L VIJI HALL, CMP ####[facility] Gxjfombcjn09[address] [place] [address]Dr. Tadeo Smyth Globulin (S) [Mass/Vol] 3.9 g/dL Normal [facility] Comment on above: Performed By: #### L VIJI HALL, CMP ####[facility] Yofismvmnd23[address] [place] [address]Dr. Tadeo Smyth Glucose [Mass/Vol] 169 mg/dL Critically high 74-106 [facility] Comment on above: Performed By: #### L VIJI HALL, CMP ####[facility] Wxiaxotcsx3136 [place] [address]Dr. Tadeo Smyth Potassium [Moles/Vol] 3.4 mmol/L Critically low 3.5-5.1 [facility] Comment on above: Performed By: #### L VIJI HALL, CMP ####[facility] Iypawhhpjz1683 [place] [address]Dr. Tadeo Smyth Protein [Mass/Vol] 7.4 g/dL Normal 6.4-8.2 [facility] Comment on above: Performed By: #### L VIJI HALL, CMP ####[facility] Nppxxyqmqt82[address] [place] [address]Dr. Tadeo Smyth Sodium [Moles/Vol] 138 mmol/L Normal 136-145 [facility] Comment on above: Performed By: #### L VIJI HALL, CMP ####[facility] Qgkffvquqq7271 [place] [address]Dr. Tadeo Smyth Urea nitrogen [Mass/Vol] 23.0 mg/dL Critically high 7.0-18.0 [facility] Comment on above: Performed By: #### L IPA, VIJI, CMP ####[facility] Jtbhubbmxq47[address] [place] [address]Dr. Tadeo Smyth Urea nitrogen/Creatinine [Mass ratio] 26.4 mg/mg Normal [facility] Comment on above: Performed By: #### L IPA, VIJI, CMP ####[facility] Lfenfzulnz65[address] [place] [address]Dr. Tadeo Haja AMYLASEon 11-02-2022 Amylase [Catalytic activity/Vol] 40 U/L Normal 25-115 [facility] Comment on above: Performed By: #### L IPA, MG, CMP, VIJI ####[facility] Ajpkslexzz4207[address] [place], [place] [address]Dr. Margotnicole Smyth CBC AUTO DIFFon 11-02-2022 BASO # 0.0 103/ul Normal 0.0-0.1 [facility] Comment on above: Performed By: #### C BC ####[facility] Zfrpzzkhjy[address] [place], [place] [address]Dr. Tadeo Smyth Basophils/100 WBC (Bld) 0.5 % Normal 0.2-2.0 [facility] Comment on above: Performed By: #### C BC ####[facility] Orywxaqkye7368[address] [place], [place] [address]Dr. Tadeo Smyth EO # 0.1 103/ul Normal 0.0-0.7 [facility] Comment on above: Performed By: #### C BC ####[facility] Fpxfkovaot3060[address] [place], [place] [address]Dr. Tadeo Smyth Eosinophils/100 WBC (Bld) 2.8 % Normal 0.9-7.0 [facility] Comment on above: Performed By: #### C BC ####[facility] Kncyssntiu1054[address] [place], [place] [address]Dr. Tadeo Smyth Erythrocyte distribution width (RBC) [Ratio] 13.3 % Normal 11.0-15.0 [facility] Comment on above: Performed By: #### C BC ####[facility] Jaibcterji3070[address] [place], [place] [address]Dr. Tadeo Smyth Hematocrit (Bld) [Volume fraction] 35.6 % Critically low 36.0-48.0 [facility] Comment on above: Performed By: #### C BC ####[facility] Scqvgbdbon7005 [place] [address]DrNeo Tadeo Smyth Hemoglobin (Bld) [Mass/Vol] 11.3 g/dL Critically low 12.0-16.0 [facility] Comment on above: Performed By: #### C BC ####[facility] Wacruzdiia37[address] [place], [place] [address]DrNeo Frostnicole Smyth IG # 0.01 10e3/ul Normal 0.00-0.03 [facility] Comment on above: Performed By: #### C BC ####[facility] Ypkgbaehkq656[address] [place], [place] [address]DrNeo Smyth IG % 0.2 % Normal 0.0-0.5 [facility] Comment on above: Performed By: #### C BC ####[facility] Kvxlxjptjy9850[address] [place], [place] [address]DrNeo Smyth LYMPH # 1.5 103/ul Normal 1.2-3.8 [facility] Comment on above: Performed By: #### C BC ####[facility] Nqhzvvhrmh[address] [place], [place] [address]DrNeo Margotnicole Smyth Lymphocytes/100 WBC (Bld) 34.9 % Normal 20.5-60.0 [facility] Comment on above: Performed By: #### C BC ####[facility] Dlhwdlpghh73[address] [place], [place] [address]DrNeo Margotnicole Smyth MANUAL DIFF REQ NO Normal [facility] Comment on above: Performed By: #### C BC ####[facility] Wynfnmnoqq0087[address] [place], [place] [address]DrNeo Smyth MCH (RBC) [Entitic mass] 28.8 pg Normal 26.7-34.0 [facility] Comment on above: Performed By: #### C BC ####[facility] Hajoqzgjgg2139[address] [place], [place] [address]DrNeo Smyth MCHC (RBC) [Mass/Vol] 31.7 g/dL Normal 29.9-35.2 [facility] Comment on above: Performed By: #### C BC ####[facility] Ofwgzigrjx4324 [place] [address]DrNeo Smyth MCV (RBC) [Entitic vol] 90.8 fL Normal 81.0-99.0 [facility] Comment on above: Performed By: #### C BC ####[facility] Dzdqjsakrs9004[address] [place], [place] [address]DrNeo Smyth MONO # 0.3 103/ul Normal 0.3-0.8 [facility] Comment on above: Performed By: #### C BC ####[facility] Sizfypbeks8357[address] [place], [place] [address]DrNeo Smyth Monocytes/100 WBC (Bld) 6.9 % Normal 1.7-12.0 [facility] Comment on above: Performed By: #### C BC ####[facility] Ovuofkywpv6739[address] [place], [place] [address]DrNeo Smyth NEUT # 2.4 103/ul Normal 1.4-6.5 [facility] Comment on above: Performed By: #### C BC ####[facility] Xfnvernimp8[address] [place], [place] [address]DrNeo Smyth Neutrophils/100 WBC (Bld) 54.7 % Normal 43.0-75.0 [facility] Comment on above: Performed By: #### C BC ####[facility] Qojdhvdpym1964[address] [place], [place] [address]DrNeo Smyth Platelet mean volume (Bld) [Entitic vol] 8.9 fL Critically low 9.5-13.5 [facility] Comment on above: Performed By: #### C BC ####[facility] Ckbhmyisrx76[address] [place], [place] [address]DrNeo Smyth PLT 316 103/ul Normal 150-450 [facility] Comment on above: Performed By: #### C BC ####[facility] Qtmcifvsbz5813[address] [place], [place] [address]DrNeo Smyth RBC 3.92 106/ul Critically low 4.20-5.40 [facility] Comment on above: Performed By: #### C BC ####[facility] Ijcbqnoknu83[address] [place] [address]Dr. Tadeo Smyth WBC 4.4 103/ul Normal 4.0-11.0 [facility] Comment on above: Performed By: #### C BC ####[facility] Igltdzvirc38[address] [place] [address]Dr. Tadeo Smyth H PYLORI ANTIBODY IGGon 10-07 H. PYLORI IGG ABS 0.12 Index Value Normal 0.00-0.79 [facility] Comment on above: Result Comment: Nega tive <0.80 Equivocal 0.80 - 0.89 Positive >0.89 Performed By: #### H PYLLC ####[facility] Whqvrjfoco90[address] [place] [address]Dr. Tadeo Smyth LIPASEon 11-02-2022 Lipase [Catalytic activity/Vol] 58.0 U/L Critically low 73.0-393.0 [facility] Comment on above: Performed By: #### L IPA, MG, CMP, VIJI ####[facility] Cfsfejpevy86[address] [place] [address]Dr. Tadeo Haja MAGNESIUMon 11-02-2022 Magnesium [Mass/Vol] 1.8 mg/dL Normal 1.8-2.4 [facility] Comment on above: Performed By: #### L IPA, MG, CMP, VIJI ####[facility] Btveabyaau4[address] [place] [address]Dr. Tadeo Haja PROF 14(COMP METB)on 023 Albumin [Mass/Vol] 3.2 g/dL Critically low 3.4-5.0 [facility] Comment on above: Performed By: #### L IPA, MG, CMP, VIJI ####[facility] Xzdktwsxhx59[address] [place] [address]Dr. Tadeo Smyth Albumin/Globulin [Mass ratio] 1.0 {ratio} Normal [facility] Comment on above: Performed By: #### L IPA, MG, CMP, VIJI ####[facility] Wdcxmokjgl033[address] [place] [address]Dr. Tadeo Smyth ALP [Catalytic activity/Vol] 138 U/L Critically high 46-116 [facility] Comment on above: Performed By: #### L IPA, MG, CMP, VIJI ####[facility] Rpyzgrgbhd[address] [place] [address]Dr. Tadeo Smyth ALT [Catalytic activity/Vol] 22 U/L Normal 14-59 [facility] Comment on above: Performed By: #### L IPA, MG, CMP, VIJI ####[facility] Xhtuyruoxa5695 [place] [address]Dr. Tadeo Smyth Anion gap [Moles/Vol] 10.0 mmol/L Normal [facility] Comment on above: Performed By: #### L IPA, MG, CMP, VIJI ####[facility] Wvwzwjwwml9067[address] [place], [place] [address]Dr. Tadeo Smyth AST [Catalytic activity/Vol] 18 U/L Normal 15-37 [facility] Comment on above: Performed By: #### L IPA, MG, CMP, VIJI ####[facility] Fknkpkyoes18[address] [place], [place] [address]Dr. Tadeo Smyth Bilirubin [Mass/Vol] 0.5 mg/dL Normal 0.2-1.0 [facility] Comment on above: Performed By: #### L IPA, MG, CMP, VIJI ####[facility] Qztnqqfihl49[address] [place], [place] [address]Dr. Tadeo Smyth Calcium [Mass/Vol] 8.9 mg/dL Normal 8.5-10.1 [facility] Comment on above: Performed By: #### L IPA, MG, CMP, VIJI ####[facility] Uqyqwayuvb7835[address] [place], [place] [address]Dr. Tadeo Smyth Chloride [Moles/Vol] 107 mmol/L Normal 98-107 [facility] Comment on above: Performed By: #### L IPA, MG, CMP, VIJI ####[facility] Muwltqhrta6[address] [place] [address]Dr. Tadeo Smyth CO2 [Moles/Vol] 28.8 mmol/L Normal 21.0-32.0 [facility] Comment on above: Performed By: #### L IPA, MG, CMP, VIJI ####[facility] Mnjhxwkvit0485 [place] [address]Dr. Tadeo Smyth Creatinine [Mass/Vol] 0.74 mg/dL Normal 0.55-1.02 [facility] Comment on above: Performed By: #### L IPA, MG, CMP, VIJI ####[facility] Lckgjklevj9[address] [place], [place] [address]Dr. Tadeo Smyth EGFR-AF KOSOVAN >60 Normal >=60 [facility] Comment on above: Performed By: #### L IPA, MG, CMP, VIJI ####[facility] Sdobniyrig549[address] [place], [place] [address]Dr. Tadeo Smyth EGFR-NON AF KOSOVAN >60 Normal >=60 [facility] Comment on above: Performed By: #### L IPA, MG, CMP, VIJI ####[facility] Tumivbepay0939[address] [place], [place] [address]Dr. Tadeo Smyth Globulin (S) [Mass/Vol] 3.3 g/dL Normal [facility] Comment on above: Performed By: #### L IPA, MG, CMP, VIJI ####[facility] Fkeeesofmq256[address] [place], [place] [address]Dr. Tadeo Smyth Glucose [Mass/Vol] 96 mg/dL Normal 74-106 [facility] Comment on above: Performed By: #### L IPA, MG, CMP, VIJI ####[facility] Ktkxwwitwz2126[address] [place], [place] [address]Dr. Tadeo Smyth Potassium [Moles/Vol] 3.8 mmol/L Normal 3.5-5.1 [facility] Comment on above: Performed By: #### L IPA, MG, CMP, VIJI ####[facility] Teymgyhvpm3732[address] [place], [place] [address]Dr. Margotnicole Smyth Protein [Mass/Vol] 6.5 g/dL Normal 6.4-8.2 [facility] Comment on above: Performed By: #### L IPA, MG, CMP, VIJI ####[facility] Hbkwfaichs7978 [place] [address]Dr. Tadeo Smyth Sodium [Moles/Vol] 142 mmol/L Normal 136-145 [facility] Comment on above: Performed By: #### L IPA, MG, CMP, VIJI ####[facility] Zxgknpqnck9665 [place] [address]Dr. Tadeo Smyth Urea nitrogen [Mass/Vol] 8.0 mg/dL Normal 7.0-18.0 [facility] Comment on above: Performed By: #### L IPA, MG, CMP, VIJI ####[facility] Vfowpnuawg8107[address] [place], [place] [address]Dr. Tadeo Smyth Urea nitrogen/Creatinine [Mass ratio] 10.8 mg/mg Normal [facility] Comment on above: Performed By: #### L IPA, MG, CMP, VIJI ####[facility] Tfianqwupy1620[address] [place], [place] [address]Dr. Tadeo Smyth AMMONIAon 11-01-2022 Ammonia (P) [Moles/Vol] 18 umol/L Normal 11-32 [facility] Comment on above: Performed By: #### A MM ####[facility] Jbbulshuye3810[address] [place], [place] [address]Dr. Tadeo Smyth AMYLASEon 11-01-2022 Amylase [Catalytic activity/Vol] 43 U/L Normal 25-115 [facility] Comment on above: Performed By: #### M G, VIJI, LIPA, CMP ####[facility] Czkvqfwrpq85[address] [place], [place] [address]Dr. Tadeo Smyth CBC AUTO DIFFon 11-01-2022 BASO # 0.0 103/ul Normal 0.0-0.1 [facility] Comment on above: Performed By: #### C BC ####[facility] Lwhkkgiytp3824[address] [place], [place] [address]Dr. Tadeo Smyth Basophils/100 WBC (Bld) 0.6 % Normal 0.2-2.0 [facility] Comment on above: Performed By: #### C BC ####[facility] Nnaxtvcqfw386[address] [place], [place] [address]Dr. Tadeo Smyth EO # 0.1 103/ul Normal 0.0-0.7 [facility] Comment on above: Performed By: #### C BC ####[facility] Unyhojqcvv6597 [place] [address]Dr. Tadeo Smyth Eosinophils/100 WBC (Bld) 1.5 % Normal 0.9-7.0 [facility] Comment on above: Performed By: #### C BC ####[facility] Igdcbcsufc4887[address] [place], [place] [address]Dr. Tadeo Smyth Erythrocyte distribution width (RBC) [Ratio] 13.5 % Normal 11.0-15.0 [facility] Comment on above: Performed By: #### C BC ####[facility] Vemtnxdoko435[address] [place], [place] [address]Dr. Tadeo Smyth Hematocrit (Bld) [Volume fraction] 37.7 % Normal 36.0-48.0 [facility] Comment on above: Performed By: #### C BC ####[facility] Gisgcvoffm012[address] [place], [place] [address]Dr. Tadeo Smyth Hemoglobin (Bld) [Mass/Vol] 12.5 g/dL Normal 12.0-16.0 [facility] Comment on above: Performed By: #### C BC ####[facility] Wbvyheafce8136[address] [place], [place] [address]Dr. Tadeo Smyth IG # 0.02 10e3/ul Normal 0.00-0.03 [facility] Comment on above: Performed By: #### C BC ####[facility] Pfbzfmdozs1538[address] [place], [place] [address]Dr. Tadeo Smyth IG % 0.4 % Normal 0.0-0.5 [facility] Comment on above: Performed By: #### C BC ####[facility] Jwgytduyws5375[address] [place], [place] [address]DrNeo Tadeo Haja LYMPH # 1.3 103/ul Normal 1.2-3.8 [facility] Comment on above: Performed By: #### C BC ####[facility] Krixqvviac7290[address] [place], [place] [address]Dr. Tadeo Smyth Lymphocytes/100 WBC (Bld) 23.9 % Normal 20.5-60.0 [facility] Comment on above: Performed By: #### C BC ####[facility] Brxbcjpjjr4[address] [place] [address]Dr. Tadeo Smyth MANUAL DIFF REQ NO Normal [facility] Comment on above: Performed By: #### C BC ####[facility] Kuhyuizjtf[address] [place] [address]Dr. Tadeo Smyth MCH (RBC) [Entitic mass] 29.8 pg Normal 26.7-34.0 [facility] Comment on above: Performed By: #### C BC ####[facility] Tjgvztdlog4108[address] [place], [place] [address]Dr. Tadeo Smyth MCHC (RBC) [Mass/Vol] 33.2 g/dL Normal 29.9-35.2 [facility] Comment on above: Performed By: #### C BC ####[facility] Okuruuvhoz6274[address] [place], [place] [address]Dr. Tadeo Smyth MCV (RBC) [Entitic vol] 89.8 fL Normal 81.0-99.0 [facility] Comment on above: Performed By: #### C BC ####[facility] Hiwlgimbki[address] [place], [place] [address]Dr. Tadeo Smyth MONO # 0.3 103/ul Normal 0.3-0.8 [facility] Comment on above: Performed By: #### C BC ####[facility] Tkpiunomfi4265[address] [place], [place] [address]Dr. Tadeo Smyth Monocytes/100 WBC (Bld) 5.2 % Normal 1.7-12.0 [facility] Comment on above: Performed By: #### C BC ####[facility] Wiuryuozbm5376[address] [place], [place] [address]Dr. Tadeo Smyth NEUT # 3.6 103/ul Normal 1.4-6.5 [facility] Comment on above: Performed By: #### C BC ####[facility] Qelpagnpzs3235[address] [place], [place] [address]Dr. Tadeo Smyth Neutrophils/100 WBC (Bld) 68.4 % Normal 43.0-75.0 [facility] Comment on above: Performed By: #### C BC ####[facility] Ixklptwrle024[address] [place] [address]Dr. Tadeo Smyth Platelet mean volume (Bld) [Entitic vol] 9.0 fL Critically low 9.5-13.5 [facility] Comment on above: Performed By: #### C BC ####[facility] Gnspcdpxni7096 [place] [address]Dr. Tadeo Smyth PLT 356 103/ul Normal 150-450 [facility] Comment on above: Performed By: #### C BC ####[facility] Fdmzynycjq589[address] [place], [place] [address]Dr. Tadeo Smyth RBC 4.20 106/ul Normal 4.20-5.40 [facility] Comment on above: Performed By: #### C BC ####[facility] Tsrdktnjvw04[address] [place], [place] [address]Dr. Tadeo Smyth WBC 5.2 103/ul Normal 4.0-11.0 [facility] Comment on above: Performed By: #### C BC ####[facility] Jljwhswsmx9[address] [place], [place] [address]Dr. Tadeo Smyth CT ABD/PELV W CONon 11-01-[address] ABD/PELV W CON Normal [facility] CULTURE BLOODon 11-01-2022 Microscopic examination of blood, culture Culture Observations: NO GROWTH AT 5 DAYS. Isolate 1 BC_BA_NA Normal [facility] Comment on above: Performed By: #### B LDCX2 ####[facility] Vwxvcpmems47[address] [place], [place] [address]Dr. Tadeo Smyth Performed By: #### B LDCX1 ####[facility] Kpjmyptsdr16[address] [place], [place] [address]Dr. Tadeo Smyth CULTURE URINEon 11-01-2022 CULTURE URINE Culture Observations : LIGHT GROWTH OF MIXED GENITAL SINTIA. NO POTENTIAL PATHOGENS SEEN. Normal [facility] Comment on above: Performed By: #### U RCX ####[facility] Zvxcylsaxv47[address] [place] [address]Dr. Tadeo Smyth Covid-19 PCR (CVDTB)on 10-07 SARS-CoV-2 (COVID-19) RNA CHEN+probe Ql (Unsp spec) Not detected Normal NOT DETECTED [facility] Comment on above: Result Comment: When [...] for this test is supported by the [employer] of [employer] and Human Service's declaration that [...] be used). Performed By: #### C VDTBH ####[facility] Bsxqfkjnqy4[address] [place], [place] [address]Dr. Tadeo Smyth LACTATE/LACTIC ACIDon 2022 Lactate [Moles/Vol] 0.7 mmol/L Normal 0.4-1.9 [facility] Comment on above: Performed By: #### L ACT ####[facility] Jtapscxdwn39[address] [place], [place] [address]Dr. Tadeo Smyth LIPASEon 11-01-2022 Lipase [Catalytic activity/Vol] 58.0 U/L Critically low 73.0-393.0 [facility] Comment on above: Performed By: #### M Ayan, VIJI, LIPA, CMP ####[facility] Sentwlnqpx[address] [place], [place] [address]Dr. Tadeo Smyth MAGNESIUMon 11-01-2022 Magnesium [Mass/Vol] 2.0 mg/dL Normal 1.8-2.4 [facility] Comment on above: Performed By: #### M VIJI Botello LIPA, CMP ####[facility] Asoueleece[address] [place] [address]Dr. Tadeo Smyth PROF 14(COMP METB)on 023 Albumin [Mass/Vol] 3.6 g/dL Normal 3.4-5.0 [facility] Comment on above: Performed By: #### M VJII Botello LIPA, CMP ####[facility] Dntnbwscep7964 [place] [address]Dr. Tadeo Smyth Albumin/Globulin [Mass ratio] 1.0 {ratio} Normal [facility] Comment on above: Performed By: #### M VIJI Botello LIPA, CMP ####[facility] Iocnoypqne[address] [place] [address]Dr. Tadeo Smyth ALP [Catalytic activity/Vol] 164 U/L Critically high 46-116 [facility] Comment on above: Performed By: #### VIJI White LIPA, CMP ####[facility] Jwwqgfcaim79[address] [place] [address]Dr. Tadeo Smyth ALT [Catalytic activity/Vol] 22 U/L Normal 14-59 [facility] Comment on above: Performed By: #### M VIJI Botello LIPA, CMP ####[facility] Drnrtvwxbm4498 [place] [address]Dr. Tadeo Smyth Anion gap [Moles/Vol] 11.5 mmol/L Normal [facility] Comment on above: Performed By: #### M VIJI Botello LIPA, CMP ####[facility] Fqlpsxsgik00[address] [place] [address]Dr. Tadeo Smyth AST [Catalytic activity/Vol] 17 U/L Normal 15-37 [facility] Comment on above: Performed By: #### M VIJI Botello LIPA, CMP ####[facility] Tsxpjsvesm5999 [place] [address]Dr. Tadeo Smyth Bilirubin [Mass/Vol] 0.4 mg/dL Normal 0.2-1.0 [facility] Comment on above: Performed By: #### M VIJI Botello LIPA, CMP ####[facility] Lwtdoofyko5[address] [place] [address]Dr. Tadeo Smyth Calcium [Mass/Vol] 9.1 mg/dL Normal 8.5-10.1 [facility] Comment on above: Performed By: #### M G, VIJI, LIPA, CMP ####[facility] Gdquwsdkdp04[address] [place] [address]Dr. Tadeo Smyth Chloride [Moles/Vol] 105 mmol/L Normal 98-107 [facility] Comment on above: Performed By: #### M G, VIJI, LIPA, CMP ####[facility] [address] [place] [address]Dr. Tadeo Smyth CO2 [Moles/Vol] 27.6 mmol/L Normal 21.0-32.0 [facility] Comment on above: Performed By: #### M G, VIJI, LIPA, CMP ####[facility] Uqbvuonyfc[address] [place] [address]Dr. Tadeo Smyth Creatinine [Mass/Vol] 0.72 mg/dL Normal 0.55-1.02 [facility] Comment on above: Performed By: #### M G, VIJI, LIPA, CMP ####[facility] Drksuxokri[address] [place], [place] [address]Dr. Tadeo Smyth EGFR-AF KOSOVAN >60 Normal >=60 [facility] Comment on above: Performed By: #### M G, VIJI, LIPA, CMP ####[facility] Zhctwsxevc[address] [place] [address]Dr. Tadeo Smyth EGFR-NON AF KOSOVAN >60 Normal >=60 [facility] Comment on above: Performed By: #### M G, VIJI, LIPA, CMP ####[facility] Darjikgqna[address] [place] [address]Dr. Tadeo Smyth Globulin (S) [Mass/Vol] 3.6 g/dL Normal [facility] Comment on above: Performed By: #### M G, VIJI, LIPA, CMP ####[facility] Orwpajjqwo[address] [place] [address]Dr. Tadeo Smyth Glucose [Mass/Vol] 100 mg/dL Normal 74-106 [facility] Comment on above: Performed By: #### M Ayan, VIJI, LIPA, CMP ####[facility] Unmr[address]drgpc[address] [place] [address]Dr. Tadeo Smyth Potassium [Moles/Vol] 4.1 mmol/L Normal 3.5-5.1 [facility] Comment on above: Performed By: #### M Ayan, VIJI, LIPA, CMP ####[facility] B[address]ugk[address] [place] [address]Dr. Tadeo Smyth Protein [Mass/Vol] 7.2 g/dL Normal 6.4-8.2 [facility] Comment on above: Performed By: #### M Ayan, VIJI, LIPA, CMP ####[facility] Rltvivfnsw[address] [place] [address]Dr. Tadeo Smyth Sodium [Moles/Vol] 140 mmol/L Normal 136-145 [facility] Comment on above: Performed By: #### M Ayan, VIJI, LIPA, CMP ####[facility] Juztexvovb[address] [place] [address]Dr. Tadeo Haja Urea nitrogen [Mass/Vol] 15.0 mg/dL Normal 7.0-18.0 [facility] Comment on above: Performed By: #### M Ayan, VIJI, LIPA, CMP ####[facility] Dhswcivebd[address] [place] [address]Dr. Margotnicole Haja Urea nitrogen/Creatinine [Mass ratio] 20.8 mg/mg Normal [facility] Comment on above: Performed By: #### M Ayan, VIJI, LIPA, CMP ####[facility] Ytczuzzyas[address] [place] [address]Dr. Margotnicole Haja UA RANDOM W/MICROSCOPICon BACTERIA TRACE Abnormal NONE SEEN [facility] Comment on above: Performed By: #### U AMIC ####[facility] Eetvxkfnzm[address] [place] [address]Dr. Tadeo Smyth Bilirubin Ql (U) Negative Normal NEGATIVE [facility] Comment on above: Performed By: #### U AMIC ####[facility] Mqnfjmgoyl[address] [place] [address]Dr. Tadeo Smyth CAST NONE SEEN Normal NONE SEEN [facility] Comment on above: Performed By: #### U AMIC ####[facility] Kqsclntjki[address] [place] [address]Dr. Tadeo Smyth Clarity (U) CLEAR Normal CLEAR [facility] Comment on above: Performed By: #### U AMIC ####[facility] Rtnyhsbjwv[address] [place] [address]Dr. Tadeo Smyth Color (U) LT. YELLOW Normal YELLOW [facility] Comment on above: Performed By: #### U AMIC ####[facility] Cconuthkfj[address] [place] [address]Dr. Tadeo Smyth Crystals LM Nom (Urine sed) NONE SEEN Normal NONE SEEN [facility] Comment on above: Performed By: #### U AMIC ####[facility] Ntapgatyac[address] [place], [place] [address]Dr. Tadeo Smyth Epithelial cells LM Ql (Urine sed) RARE Normal NONE SEEN /RARE [facility] Comment on above: Performed By: #### U AMIC ####[facility] Aueucixvna[address] [place], [place] [address]Dr. Tadeo Smyth Glucose Ql (U) Negative Normal NEGATIVE [facility] Comment on above: Performed By: #### U AMIC ####[facility] Xpiglrlimk[address] [place] [address]Dr. Tadeo Smyth Hemoglobin Ql (U) TRACE-LYSED Abnormal NEGATIVE [facility] Comment on above: Performed By: #### U AMIC ####[facility] Xsxgshnref[address] [place] [address]Dr. Tadeo Smyth Ketones Ql (U) Negative Normal NEGATIVE [facility] Comment on above: Performed By: #### U AMIC ####[facility] Cmihysasdd[address] [place] [address]Dr. Tadeo Smyth LEUKOCYTES Negative Normal NEGATIVE [facility] Comment on above: Performed By: #### U AMIC ####[facility] Z[address]seeztfg[address] [place] [id number]. Tadeo Smyth MUCOUS NONE SEEN Normal NONE SEEN [facility] Comment on above: Performed By: #### U AMIC ####[facility] Pgaeqtytiq[address] [place] [address]Dr. Tadeo Smyth Nitrite Ql (U) Negative Normal NEGATIVE [facility] Comment on above: Performed By: #### U AMIC ####[facility] Lgkpafxlfc[address] [place] [address]Dr. Margotnicole Smyth pH (U) 6.0 [pH] Normal 5-9 [facility] Comment on above: Performed By: #### U AMIC ####[facility] Rumjoouhlg[address] [place] [address]Dr. Tadeo Smyth RBC 0-2 Normal 0-2 [facility] Comment on above: Performed By: #### U AMIC ####[facility] Dfhxbcadpa[address] [place] [address]Dr. Tadeo Smyth SPEC GRAVITY 1.010 Normal 1.005-<=1.0 25 [facility] Comment on above: Performed By: #### U AMIC ####[facility] [address]meibjbke[address] [place], [place] [address]Dr. Tadeo Smyth UA PROTEIN Negative Normal NEGATIVE/ TRACE [facility] Comment on above: Performed By: #### U AMIC ####[facility] Ihswwmjqla4[address] [place] [address]Dr. Tadeo Smyth Urobilinogen Qn (U) 0.2 {Benito'U}/dL Normal 0.2 - 1. 0 [facility] Comment on above: Performed By: #### U AMIC ####[facility] [address]xckqfrt[address] [place], [place] [address]Dr. Tadeo Smyth WBC 0-2 Abnormal NONE SEEN [facility] Comment on above: Performed By: #### U AMIC ####[facility] [address]awc[address] [place] [address]Dr. Tadeo Smyth Activated partial thrombopla stin time (aPTT) in platelet poor plasma by coagulation aOrdered By: Conner Griffith on 10-26-2022 aPTT Coag (PPP) [Time] 30.8 s 25.1-36.5 [facility] Albumin [Mass/volume] in Ser um or PlasmaOrdered By: Conner Griffith on 10-26-2022 Albumin [Mass/Vol] 3.6 g/dL 3.2-5.5 [facility] Automated erythrocytes count in urine sediment (number/area)Ordered By: Conner Griffith on 10-26-2022 RBC Auto (Urine sed) [#/Area] 0-1 [HPF] 0-4 [facility] Automated leukocytes count i n urine sediment (number/area)Ordered By: Conner Griffith on 10-26-2022 WBC Auto (Urine sed) [#/Area] None seen [HPF] 0-4 [facility] Basophils Auto (Bld) [#/Vol] Ordered By: Conner Griffith on 10-26-2022 Basophils (Bld) [#/Vol] 0.0 10*3/uL 0.0-0.2 [facility] Basophils/100 WBC Auto (Bld) Ordered By: Conner Griffith on 10-26-2022 Basophils/100 WBC (Bld) 0.6 % . [facility] Bilirubin Test strip Ql (U)O rdered By: Conner Griffith on 10-26-2022 Bilirubin Ql (U) Negative Negative [facility] Color Auto (U)Ordered By: Kevin Griffith on 10-26-2022 Color (U) Yellow Yellow [facility] Creatinine and Glomerular fi ltration rate.predicted panel (S/P/Bld)Ordered By: Conner Griffith on 10-26-2022 Creatinine [Mass/Vol] 0.81 mg/dL 0.44-1.03 [facility] Eosinophils Auto (Bld) [#/Vo l]Ordered By: Conner Griffith on 10-26-2022 Eosinophils (Bld) [#/Vol] 0.2 10*3/uL 0.0-0.45 [facility] Eosinophils/100 WBC Auto (Bl d)Ordered By: Conner Griffith on 10-26-2022 Eosinophils/100 WBC (Bld) 3.3 % . [facility] Erythrocyte distribution wid th Auto (RBC) [Ratio]Ordered By: Conner Griffith on 10-26-2022 Erythrocyte distribution width (RBC) [Ratio] 14.5 % 11.9-15.3 [facility] Estimated glomerular filtrat ion rate (GFR) non- AmericanOrdered By: Conner Griffith on 10-26-2022 GFR/1.73 sq M.predicted among non-blacks MDRD (S/P/Bld) [Vol rate/Area] > 60 mL/Min [facility] Globulin Calc (S) [Mass/Vol] Ordered By: Conner Griffith on 10-26-2022 Globulin (S) [Mass/Vol] 3.2 g/dL [facility] Hematocrit Auto (Bld) [Volum e fraction]Ordered By: Conner Griffith on 10-26-2022 Hematocrit (Bld) [Volume fraction] 36.7 % 34.0-46.4 [facility] Hemoglobin [Mass/volume] in BloodOrdered By: Conner Griffith on 10-26-2022 Hemoglobin (Bld) [Mass/Vol] 12.1 g/dL 11.8-15.4 [facility] Ketones Auto test strip (U) [Mass/Vol]Ordered By: Conner Griffith on 10-26-2022 Ketones (U) [Mass/Vol] Negative Negative [facility] Laboratory - Chemistry and C hemistry - challengeOrdered By: Conner Griffith on 10-26-2022 Lipase [Catalytic activity/Vol] 37.0 U/L 22-51 [facility] - CoagulationOrde red By: Conner Griffith on 10-26-2022 PT Coag (PPP) [Time] 10.6 s 9.0-12.9 [facility] Laboratory - UrinalysisOrder ed By: Conner Griffith on 10-26-2022 Hyaline casts LM Ql (Urine sed) None seen [LPF] 0-8 [facility] Leukocytes [#/volume] correc jun for nucleated erythrocytes in Blood by Automated counOrdered By: Conner Griffith on 10-26-2022 WBC corrected for nucl RBC Auto (Bld) [#/Vol] 6.3 10*3/uL 3.8-11.6 [facility] Lymphocytes Auto (Bld) [#/Vo l]Ordered By: Conner Griffith on 10-26-2022 Lymphocytes (Bld) [#/Vol] 1.9 10*3/uL 1.00-4.8 [facility] Lymphocytes/100 WBC Auto (Bl d)Ordered By: Conner Griffith on 10-26-2022 Lymphocytes/100 WBC (Bld) 29.7 % . [facility] MCH Auto (RBC) [Entitic mass ]Ordered By: Conner Griffith on 10-26-2022 MCH (RBC) [Entitic mass] 29.3 pg 24.7-34.3 [facility] MCHC Auto (RBC) [Mass/Vol]Or dered By: Conner Griffith on 10-26-2022 MCHC (RBC) [Mass/Vol] 33.1 g/dL 32.0-35.0 [facility] MCV Auto (RBC) [Entitic vol] Ordered By: Conner Griffith on 10-26-2022 MCV (RBC) [Entitic vol] 88.5 fL 80-100 [facility] Monocyte distribution width [Entitic volume] in Blood by AutomatedOrdered By: Conner Griffith on 10-26-2022 Monocyte distribution width Auto (Bld) [Entitic vol] 16.27 % 0.00-20.00 [facility] Monocytes Auto (Bld) [#/Vol] Ordered By: Conner Griffith on 10-26-2022 Monocytes (Bld) [#/Vol] 0.4 10*3/uL 0.0-0.8 [facility] Monocytes/100 WBC Auto (Bld) Ordered By: Conner Griffith on 10-26-2022 Monocytes/100 WBC (Bld) 7.1 % . [facility] Neutrophils Auto (Bld) [#/Vo l]Ordered By: Conner Griffith on 10-26-2022 Neutrophils (Bld) [#/Vol] 3.7 10*3/uL 1.8-7.7 [facility] Neutrophils/100 WBC Auto (Bl d)Ordered By: Conner Griffith on 10-26-2022 Neutrophils/100 WBC (Bld) 59.3 % . [facility] Nitrite Test strip Ql (U)Ord ered By: Conner Griffith on 10-26-2022 Nitrite Ql (U) Negative Negative [facility] No Panel InformationOrdered By: Conner Griffith on 10-26-2022 Estimated GFR () > 60 mL/Min [facility] Comment on above: GFR estimated refere nce range: According to KDOQI guidelines, <60 ml/min/1.73m2 is sufficient to diagnose a patient with chronic kidney disease. Pharmacy Creatinine Clearance (Chem 93.01 [facility] Nucleated erythrocytes [Pres ence] in Blood by Automated countOrdered By: Conner Griffith on 10-26-2022 Nucleated RBC Auto Ql (Bld) 0.3 /100{WBC} 0-0.5 [facility] Platelet mean volume Auto (B ld) [Entitic vol]Ordered By: Conner Griffith on 10-26-2022 Platelet mean volume (Bld) [Entitic vol] 7.5 fL 6.3-10.7 [facility] Platelet poor plasma interna tional normalized ratio (INR) by coagulation assay (relatOrdered By: Conner Griffith on 10-26-2022 INR Coag (PPP) [Relative time] 0.9 {INR} [facility] Comment on above: INR Therapeutic Rang [...] 10-26-2022 Platelets (Bld) [#/Vol] 379 10*3/uL 150-450 [facility] Protein Auto test strip (U) [Mass/Vol]Ordered By: Conner Griffith on 10-26-2022 Protein (U) [Mass/Vol] Negative Negative [facility] Protein [Mass/volume] in Ser um or PlasmaOrdered By: Conner Griffith on 10-26-2022 Protein [Mass/Vol] 6.8 g/dL 6.1-7.9 [facility] RBC Auto (Bld) [#/Vol]Ordere d By: Conner Griffith on 10-26-2022 RBC (Bld) [#/Vol] 4.14 10*6/uL 3.60-5.00 [facility] Serum or plasma alanine cooley otransferase measurement without P-5'-P (enzymatic activiOrdered By: Conner Griffith on 10-26-2022 ALT No additional P-5'-P [Catalytic activity/Vol] 18 U/L 10-60 [facility] Serum or plasma albumin/glob ulin mass ratioOrdered By: Conner Griffith on 10-26-2022 Albumin/Globulin [Mass ratio] 1.1 {ratio} [facility] Serum or plasma alkaline augustin sphatase measurement (enzymatic activity/volume)Ordered By: Conner Griffith on 10-26-2022 ALP [Catalytic activity/Vol] 121 U/L 32-92 [facility] Serum or plasma anion gap de terminationOrdered By: Conner Griffith on 10-26-2022 Anion gap [Moles/Vol] 11.3 mmol/L 6.0-15.0 [facility] Serum or plasma aspartate am inotransferase measurement (enzymatic activity/volume)Ordered By: Conner Griffith on 10-26-2022 AST [Catalytic activity/Vol] 19 U/L 10-42 [facility] Serum or plasma calcium julee urement (mass/volume)Ordered By: Conner Griffith on 10-26-2022 Calcium [Mass/Vol] 8.9 mg/dL 8.2-10.2 [facility] Serum or plasma chloride julio surement (moles/volume)Ordered By: Conner Griffith on 10-26-2022 Chloride [Moles/Vol] 108 mmol/L 95-114 [facility] Serum or plasma glucose julee urement (mass/volume)Ordered By: Conner Griffith on 10-26-2022 Glucose [Mass/Vol] 95 mg/dL 70-100 [facility] Comment on above: ADA recommended refe rence rangeRandom Glucose Reference Range is dependent on time and content of last meal. Glucose of more than 200 mg/dL in a nonstressed, ambulatory subject supports the diagnosis of Diabetes Mellitus. Serum or plasma potassium me asurement (moles/volume)Ordered By: Conner Griffith on 10-26-2022 Potassium [Moles/Vol] 3.4 mmol/L 3.5-5.1 [facility] Serum or plasma sodium measu rement (moles/volume)Ordered By: Conner Griffith on 10-26-2022 Sodium [Moles/Vol] 141 mmol/L 136-146 [facility] Serum or plasma total biliru bin measurement (mass/volume)Ordered By: Conner Griffith on 10-26-2022 Bilirubin [Mass/Vol] 0.4 mg/dL 0.3-1.2 [facility] Serum or plasma total carbon dioxide measurement (moles/volume)Ordered By: Conner Griffith on 10-26-2022 CO2 [Moles/Vol] 25.1 mmol/L 22.0-30.0 [facility] Serum or plasma urea nitroge n measurement (mass/volume)Ordered By: Conner Griffith on 10-26-2022 Urea nitrogen [Mass/Vol] 18 mg/dL 9-23 [facility] Specific gravity Auto test s trip (U) [Rel density]Ordered By: Conner Griffith on 10-26-2022 Specific gravity (U) [Rel density] 1.019 1.001-1.030 [facility] Squamous epithelial cells de tection in urine sediment by light microscopyOrdered By: Conner Griffith on 10-26-2022 Epithelial cells.squamous LM Ql (Urine sed) 1-2 [HPF] 0-2 [facility] Urine bacteria detection by automated methodOrdered By: Conner Griffith on 10-26-2022 Bacteria Auto Ql (U) None seen None Seen [facility] Urine clarity by refractomet ry automatedOrdered By: Conner Griffith on 10-26-2022 Clarity Refractometry automated (U) Clear Clear [facility] Urine glucose measurement by automated test strip (mass/volume)Ordered By: Conner Griffith on 10-26-2022 Glucose Auto test strip (U) [Mass/Vol] Normal mg/dL Normal [facility] Urine hemoglobin detection b y automated test stripOrdered By: Conner Griffith on 10-26-2022 Hemoglobin Auto test strip Ql (U) Negative Negative [facility] Urine lactic acid measuremen tOrdered By: Conner Griffith on 10-26-2022 Lactate (U) [Moles/Vol] 1.0 mmol/L 0.5-2.2 [facility] Urine leukocyte esterase det ection by automated test stripOrdered By: Conner Griffith on 10-26-2022 Leukocyte esterase Auto test strip Ql (U) 1+ Negative [facility] Urobilinogen Auto test strip (U) [Mass/Vol]Ordered By: Conner Griffith on 10-26-2022 Urobilinogen (U) [Mass/Vol] Normal mg/dL Normal [facility] WBC Auto (Bld) [#/Vol]Ordere d By: Conner Griffith on 10-26-2022 WBC (Bld) [#/Vol] 6.3 10*3/uL 3.8-11.6 [facility] pH Auto test strip (U)Ordere d By: Conner Griffith on 10-26-2022 pH (U) 6.5 [pH] 5.0-9.0 [facility] CBC AUTO DIFFon 09-21-2022 BASO # 0.0 103/ul Normal 0.0-0.1 [facility] Comment on above: Performed By: #### C BC ####[facility] Ez[address]vxt[address] [place] [address]Dr. Tadeo Smyth Basophils/100 WBC (Bld) 0.4 % Normal 0.2-2.0 [facility] Comment on above: Performed By: #### C BC ####[facility] Zthcrdpewx9[address] [place] [id number]. Tadeo Smyth EO # 0.1 103/ul Normal 0.0-0.7 [facility] Comment on above: Performed By: #### C BC ####[facility] Feimgamywv0860 [place] [id number]. Tadeo Smyth Eosinophils/100 WBC (Bld) 1.8 % Normal 0.9-7.0 [facility] Comment on above: Performed By: #### C BC ####[facility] Usxkgldgmt[address] [place] [address]Dr. Tadeo Smyth Erythrocyte distribution width (RBC) [Ratio] 13.8 % Normal 11.0-15.0 [facility] Comment on above: Performed By: #### C BC ####[facility] [address]zznb[address] [place], [place] [address]Dr. Tadeo Smyth Hematocrit (Bld) [Volume fraction] 41.0 % Normal 36.0-48.0 [facility] Comment on above: Performed By: #### C BC ####[facility] [address]azrfj[address] [place], [place] [address]Dr. Tadeo Smyth Hemoglobin (Bld) [Mass/Vol] 13.3 g/dL Normal 12.0-16.0 [facility] Comment on above: Performed By: #### C BC ####[facility] Hbxtshoero[address] [place], [place] [address]Dr. Tadeo Smyth IG # 0.01 10e3/ul Normal 0.00-0.03 [facility] Comment on above: Performed By: #### C BC ####[facility] Ocnaibdqxr[address] [place], [place] [address]Dr. Tadeo Smyth IG % 0.1 % Normal 0.0-0.5 [facility] Comment on above: Performed By: #### C BC ####[facility] [address]xvjnoysox[address] [place], [place] [address]Dr. Tadeo Smyth LYMPH # 1.7 103/ul Normal 1.2-3.8 [facility] Comment on above: Performed By: #### C BC ####[facility] [address]tjcfnunkp[address] [place], [place] [address]Dr. Tadeo Smyth Lymphocytes/100 WBC (Bld) 24.8 % Normal 20.5-60.0 [facility] Comment on above: Performed By: #### C BC ####[facility] Ohwhkoiheg[address] [place], [place] [address]Dr. Tadeo Smyth MANUAL DIFF REQ NO Normal [facility] Comment on above: Performed By: #### C BC ####[facility] Cihjigmqwz020[address] [place] [id number]. Tadeo Smyth MCH (RBC) [Entitic mass] 29.0 pg Normal 26.7-34.0 [facility] Comment on above: Performed By: #### C BC ####[facility] P[address]ipvpqdsl[address] [place] [id number]. Tadeo Smyth MCHC (RBC) [Mass/Vol] 32.4 g/dL Normal 29.9-35.2 [facility] Comment on above: Performed By: #### C BC ####[facility] Izlhpmltge[address] [place] [address]Dr. Tadeo Haaj MCV (RBC) [Entitic vol] 89.3 fL Normal 81.0-99.0 [facility] Comment on above: Performed By: #### C BC ####[facility] Jrrydeqxae[address] [place], [place] [address]Dr. Tadeo Smyth MONO # 0.5 103/ul Normal 0.3-0.8 [facility] Comment on above: Performed By: #### C BC ####[facility] [address]egovzbmxh[address] [place], [place] [address]Dr. Margotnicole Smyth Monocytes/100 WBC (Bld) 6.9 % Normal 1.7-12.0 [facility] Comment on above: Performed By: #### C BC ####[facility] Jntel[address]mgw[address] [place], [place] [address]Dr. Tadeo Smyth NEUT # 4.5 103/ul Normal 1.4-6.5 [facility] Comment on above: Performed By: #### C BC ####[facility] [address] [place], [place] [address]Dr. Tadeo Smyth Neutrophils/100 WBC (Bld) 66.0 % Normal 43.0-75.0 [facility] Comment on above: Performed By: #### C BC ####[facility] [address]exvbxzqfz[address] [place], [place] [address]Dr. Tadeo Smyth Platelet mean volume (Bld) [Entitic vol] 8.8 fL Critically low 9.5-13.5 [facility] Comment on above: Performed By: #### C BC ####[facility] Bsoycfsivk[address] [place] [id number]. Tadeo Haja PLT 384 103/ul Normal 150-450 [facility] Comment on above: Performed By: #### C BC ####[facility] Nwlblyaqff8[address] [place] [id number]. Tadeo Smyth RBC 4.59 106/ul Normal 4.20-5.40 [facility] Comment on above: Performed By: #### C BC ####[facility] Cbcifjzxsw70[address] [place] [id number]. Tadeo Haja WBC 6.8 103/ul Normal 4.0-11.0 [facility] Comment on above: Performed By: #### C BC ####[facility] [address]ssknteami[address] [place] [address]Dr. Tadeo Smyth PROF CHEM 8 (BAS METB)on Anion gap [Moles/Vol] 13.8 mmol/L Normal [facility] Comment on above: Performed By: #### B MP ####[facility] Ayqcblmplh[address] [place] [id number]. Tadeo Smyth Calcium [Mass/Vol] 9.6 mg/dL Normal 8.5-10.1 [facility] Comment on above: Performed By: #### B MP ####[facility] Irtckhouwv4496 [place] [id number]. Tadeo Smyth Chloride [Moles/Vol] 106 mmol/L Normal 98-107 [facility] Comment on above: Performed By: #### B MP ####[facility] Apurhwefxf34[address] [place] [id number]. Tadeo Smyth CO2 [Moles/Vol] 25.9 mmol/L Normal 21.0-32.0 [facility] Comment on above: Performed By: #### B MP ####[facility] Vshkhvuzaf9[address] [place] [id number]. Tadeo Smyth Creatinine [Mass/Vol] 0.92 mg/dL Normal 0.55-1.02 [facility] Comment on above: Performed By: #### B MP ####[facility] Xlbtvqkozd[address] [place] [address]Dr. Tadeo Smyth EGFR-AF KOSOVAN >60 Normal >=60 [facility] Comment on above: Performed By: #### B MP ####[facility] Qsqyngonac6469 [place] [id number]. Tadeo Smyth EGFR-NON AF KOSOVAN >60 Normal >=60 [facility] Comment on above: Performed By: #### B MP ####[facility] Quwistiwnl[address] [place] [address]Dr. Margotnicole Haja Glucose [Mass/Vol] 98 mg/dL Normal 74-106 [facility] Comment on above: Performed By: #### B MP ####[facility] Vbyzfxpbgg[address] [place] [address]Dr. Tadeo Smyth Potassium [Moles/Vol] 3.7 mmol/L Normal 3.5-5.1 [facility] Comment on above: Performed By: #### B MP ####[facility] Vvwfbpowyy[address] [place] [address]Dr. Margotnicole Haja Sodium [Moles/Vol] 142 mmol/L Normal 136-145 [facility] Comment on above: Performed By: #### B MP ####[facility] Z[address]rd[address]jfj[address] [place] [address]Dr. Tadeo Smyth Urea nitrogen [Mass/Vol] 19.0 mg/dL Critically high 7.0-18.0 [facility] Comment on above: Performed By: #### B MP ####[facility] [address]ef[address]ff[address] [place] [address]Dr. Tadeo Smyth Urea nitrogen/Creatinine [Mass ratio] 20.7 mg/mg Normal [facility] Comment on above: Performed By: #### B MP ####[facility] Folfrnksop[address] [place] [address]Dr. Margotnicole Haja XR KUB 1 VIEWon 09-21-2022 XR KUB 1 VIEW Normal [facility] AMYLASEon 09-18-2022 Amylase [Catalytic activity/Vol] 58 U/L Normal 25-115 [facility] Comment on above: Performed By: #### L IPA, CMP, VIJI ####[facility] Jkfcvyeghe[address] [place], [place] [address]Dr. Tadeo Smyth CBC AUTO DIFFon 09-18-2022 BASO # 0.0 103/ul Normal 0.0-0.1 [facility] Comment on above: Performed By: #### C BC ####[facility] Ntmuigzmkf[address] [place], [place] [address]Dr. Tadeo Smyth Basophils/100 WBC (Bld) 0.3 % Normal 0.2-2.0 [facility] Comment on above: Performed By: #### C BC ####[facility] Iisuqpedil[address] [place], [place] [address]Dr. Tadeo Smyth EO # 0.1 103/ul Normal 0.0-0.7 [facility] Comment on above: Performed By: #### C BC ####[facility] Kgvhhidikq[address] [place], [place] [address]Dr. Tadeo Smyth Eosinophils/100 WBC (Bld) 1.8 % Normal 0.9-7.0 [facility] Comment on above: Performed By: #### C BC ####[facility] Hgzwwujcin[address] [place], [place] [address]Dr. Tadeo Smyth Erythrocyte distribution width (RBC) [Ratio] 13.7 % Normal 11.0-15.0 [facility] Comment on above: Performed By: #### C BC ####[facility] Zhjxnjagzk[address] [place], [place] [address]Dr. Tadeo Smyth Hematocrit (Bld) [Volume fraction] 37.4 % Normal 36.0-48.0 [facility] Comment on above: Performed By: #### C BC ####[facility] Oxqaaeqtki[address] [place], [place] [address]Dr. Tadeo Smyth Hemoglobin (Bld) [Mass/Vol] 12.3 g/dL Normal 12.0-16.0 [facility] Comment on above: Performed By: #### C BC ####[facility] Y[address]pnmwnx[address] [place] [id number]. Tadeo Smyth IG # 0.02 10e3/ul Normal 0.00-0.03 [facility] Comment on above: Performed By: #### C BC ####[facility] Oxtlmbqdtp[address] [place] [address]Dr. Tadeo Haja IG % 0.3 % Normal 0.0-0.5 [facility] Comment on above: Performed By: #### C BC ####[facility] Yocxvnzqkk[address] [place] [address]Dr. Tadeo Haja LYMPH # 2.2 103/ul Normal 1.2-3.8 [facility] Comment on above: Performed By: #### C BC ####[facility] Nentwjomwt[address] [place] [address]Dr. Margotnicole Smyth Lymphocytes/100 WBC (Bld) 29.3 % Normal 20.5-60.0 [facility] Comment on above: Performed By: #### C BC ####[facility] Mskflohkpb[address] [place] [address]Dr. Margotnicole Smyth MANUAL DIFF REQ NO Normal [facility] Comment on above: Performed By: #### C BC ####[facility] Gguwywcqoy[address] [place] [address]Dr. Tadeo Smyth MCH (RBC) [Entitic mass] 29.0 pg Normal 26.7-34.0 [facility] Comment on above: Performed By: #### C BC ####[facility] Uzwdjrtcso[address] [place] [address]Dr. Tadeo Smyth MCHC (RBC) [Mass/Vol] 32.9 g/dL Normal 29.9-35.2 [facility] Comment on above: Performed By: #### C BC ####[facility] Ahfaydtqml[address] [place] [address]Dr. Tadeo Smyth MCV (RBC) [Entitic vol] 88.2 fL Normal 81.0-99.0 [facility] Comment on above: Performed By: #### C BC ####[facility] Ffxnsbwgpz5[address] [place], [place] [address]Dr. Tadeo Smyth MONO # 0.5 103/ul Normal 0.3-0.8 [facility] Comment on above: Performed By: #### C BC ####[facility] Wgtxlfrjuo[address] [place] [address]Dr. Tadeo Smyth Monocytes/100 WBC (Bld) 6.4 % Normal 1.7-12.0 [facility] Comment on above: Performed By: #### C BC ####[facility] Ncjhcerfvd[address] [place] [address]Dr. Tadeo Smyth NEUT # 4.7 103/ul Normal 1.4-6.5 [facility] Comment on above: Performed By: #### C BC ####[facility] Rsvctavqhc04[address] [place] [address]Dr. Tadeo Smyth Neutrophils/100 WBC (Bld) 61.9 % Normal 43.0-75.0 [facility] Comment on above: Performed By: #### C BC ####[facility] Iytddxzjje[address] [place] [address]Dr. Tadeo Smyth Platelet mean volume (Bld) [Entitic vol] 9.0 fL Critically low 9.5-13.5 [facility] Comment on above: Performed By: #### C BC ####[facility] Gwxyntwagf[address] [place] [address]Dr. Tadeo Smyth PLT 395 103/ul Normal 150-450 [facility] Comment on above: Performed By: #### C BC ####[facility] Mgejkaphsg[address] [place] [address]Dr. Tadeo Smyth RBC 4.24 106/ul Normal 4.20-5.40 [facility] Comment on above: Performed By: #### C BC ####[facility] Hiyxoeujub[address] [place] [address]Dr. Tadeo Smyth WBC 7.6 103/ul Normal 4.0-11.0 [facility] Comment on above: Performed By: #### C BC ####[facility] Lftvekfwuj[address] [place] [address] Tade[address] CT ABD/PELV W CONon 09-18-[address] ABD/PELV W CON Normal [facility] ER URINE PROFILEon 3 Bilirubin Ql (U) SMALL Abnormal NEGATIVE [facility] Comment on above: Performed By: #### KAROL MERCHANT ####[facility] Aeyfodhdzk[address] [place] [address]Dr. Tadeo Smyth Clarity (U) CLEAR Normal CLEAR [facility] Comment on above: Performed By: #### KAROL MERCHANT ####[facility] Wsgpxyjgfa13[address] [place], [place] [address]Dr. Tadeo Smyth Color (U) DK. YELLOW Normal YELLOW [facility] Comment on above: Performed By: #### KAROL MERCHANT ####[facility] Eisnxfvsve[address] [place], [place] [address]Dr. Tadeo Smyth ERUAHD A micrscopic examina tion will be performed if indicated. Normal [facility] Comment on above: Performed By: #### KAROL MERCHANT ####[facility] Imxdntbsog7264[address] [place], [place] [address]Dr. Tadeo Smyth Glucose Ql (U) Negative Normal NEGATIVE [facility] Comment on above: Performed By: #### KAROL MERCHANT ####[facility] Yejzjjnram[address] [place], [place] [address]Dr. Tadeo Smyth Hemoglobin Ql (U) SMALL Abnormal NEGATIVE [facility] Comment on above: Performed By: #### KAROL MERCHANT ####[facility] Jpvuzobipp5632[address] [place], [place] [address]Dr. Tadeo Smyth Ketones Ql (U) Negative Normal NEGATIVE [facility] Comment on above: Performed By: #### KAROL MERCHANT ####[facility] Ieycozcaxd3875[address] [place], [place] [address]Dr. Tadeo Smyth LEUKOCYTES Negative Normal NEGATIVE [facility] Comment on above: Performed By: #### KAROL MERCHANT ####[facility] Gifqhsreuz4775[address] [place], [place] [address]Dr. Tadeo Smyth Nitrite Ql (U) Negative Normal NEGATIVE [facility] Comment on above: Performed By: #### SANDRO MERCHANTRO ####[facility] Rjulfjfial2[address] [place] [address]Dr. Tadeo Smyth pH (U) 5.5 [pH] Normal 5-9 [facility] Comment on above: Performed By: #### SANDRO MERCHANTRO ####[facility] Guvdbwvght33[address] [place] [address]Dr. Tadeo Smyth SPEC GRAVITY >=1.030 Abnormal 1.005-<=1.0 25 [facility] Comment on above: Performed By: #### SANDRO MERCHANTRO ####[facility] Nuqrvmjpis43[address] [place], [place] [address]Dr. Tadeo Smyth UA PROTEIN TRACE Normal NEGATIVE/ TRACE [facility] Comment on above: Performed By: #### KAROL MERCHANT ####[facility] Fcxvlcitrs62[address] [place], [place] [address]Dr. Tadeo Smyth UR MICRO IND INDICATED Normal [facility] Comment on above: Performed By: #### SANDRO MERCHANTRO ####[facility] Jswjuzevva0[address] [place], [place] [address]Dr. Tadeo Smyth Urobilinogen Qn (U) 0.2 {Benito'U}/dL Normal 0.2 - 1. 0 [facility] Comment on above: Performed By: #### SANDRO MERCHANTRO ####[facility] Phvbpjhubd64[address] [place], [place] [address]Dr. Tadeo Smyth LACTATE/LACTIC ACIDon 2022 Lactate [Moles/Vol] 1.1 mmol/L Normal 0.4-1.9 [facility] Comment on above: Performed By: #### L ACT ####[facility] Ipdszrhjeh[address] [place], [place] [address]Dr. Tadeo Smyth LIPASEon 09-18-2022 Lipase [Catalytic activity/Vol] 75.0 U/L Normal 73.0-393.0 [facility] Comment on above: Performed By: #### L IPA, CMP, VIJI ####[facility] Vjyicplpkn[address] [place] [address]Dr. Tadeo Smyth PROF 14(COMP METB)on 023 Albumin [Mass/Vol] 3.4 g/dL Normal 3.4-5.0 [facility] Comment on above: Performed By: #### L IPA, CMP, VIJI ####[facility] Dvmlhdkozw7[address] [place] [address]Dr. Tadeo Smyth Albumin/Globulin [Mass ratio] 0.9 {ratio} Normal [facility] Comment on above: Performed By: #### L IPA, CMP, VIJI ####[facility] Ccyrdckusu[address] [place] [address]Dr. Tadeo Smyth ALP [Catalytic activity/Vol] 164 U/L Critically high 46-116 [facility] Comment on above: Performed By: #### L IPA, CMP, VIJI ####[facility] Okecolqflm5[address] [place] [address]Dr. Tadeo Smyth ALT [Catalytic activity/Vol] 29 U/L Normal 14-59 [facility] Comment on above: Performed By: #### L IPA, CMP, VIJI ####[facility] Xizfdeipnc39[address] [place], [place] [address]Dr. Tadeo Smyth Anion gap [Moles/Vol] 12.3 mmol/L Normal [facility] Comment on above: Performed By: #### L IPA, CMP, VIJI ####[facility] Hsiagctzvv89[address] [place] [address]Dr. Tadeo Smyth AST [Catalytic activity/Vol] 30 U/L Normal 15-37 [facility] Comment on above: Performed By: #### L IPA, CMP, VIJI ####[facility] Ocvlqtfdez99[address] [place], [place] [address]Dr. Tadeo Smyth Bilirubin [Mass/Vol] 0.3 mg/dL Normal 0.2-1.0 [facility] Comment on above: Performed By: #### L IPA, CMP, VIJI ####[facility] Vvhvhpwexn9[address] [place] [address]Dr. Tadeo Smyth Calcium [Mass/Vol] 8.9 mg/dL Normal 8.5-10.1 [facility] Comment on above: Performed By: #### L IPA CMP, VIJI ####[facility] Bffigtjrma[address] [place] [address]Dr. Tadeo Smyth Chloride [Moles/Vol] 103 mmol/L Normal 98-107 [facility] Comment on above: Performed By: #### L IPA CMP, VIJI ####[facility] Mwhilfrdek5[address] [place], [place] [address]Dr. Tadeo Smyth CO2 [Moles/Vol] 27.8 mmol/L Normal 21.0-32.0 [facility] Comment on above: Performed By: #### L IPA CMP, VIJI ####[facility] Wpireharpk[address] [place], [place] [address]Dr. Tadeo Smyth Creatinine [Mass/Vol] 0.89 mg/dL Normal 0.55-1.02 [facility] Comment on above: Performed By: #### L IPA CMP, VIJI ####[facility] Nbehuitpaf5[address] [place], [place] [address]Dr. Tadeo Smyth EGFR-AF KOSOVAN >60 Normal >=60 [facility] Comment on above: Performed By: #### L IPA CMP, VIJI ####[facility] Xlakaltdpt404[address] [place], [place] [address]Dr. Tadeo Smyth EGFR-NON AF KOSOVAN >60 Normal >=60 [facility] Comment on above: Performed By: #### L IPA CMP, VIJI ####[facility] Bchmrghznn00[address] [place], [place] [address]Dr. Tadeo Smyth Globulin (S) [Mass/Vol] 3.9 g/dL Normal [facility] Comment on above: Performed By: #### L IPA CMP, VIJI ####[facility] Bijyichads8254[address] [place], [place] [address]Dr. Tadeo Smyth Glucose [Mass/Vol] 96 mg/dL Normal 74-106 [facility] Comment on above: Performed By: #### L IPA CMP, VIJI ####[facility] Uykhszzbms1345[address] [place], [place] [address]Dr. Tadeo Smyth Potassium [Moles/Vol] 4.1 mmol/L Normal 3.5-5.1 [facility] Comment on above: Performed By: #### L DIANN HALL, VIJI ####[facility] Fxbtcfnabw7[address] [place] [address]Dr. Tadeo Smyth Protein [Mass/Vol] 7.3 g/dL Normal 6.4-8.2 [facility] Comment on above: Performed By: #### L DIANN HALL, VIJI ####[facility] Bfenawgnsf59[address] [place] [address]Dr. Tadeo Smyth Sodium [Moles/Vol] 139 mmol/L Normal 136-145 [facility] Comment on above: Performed By: #### L DIANN HALL, VIJI ####[facility] Atavrwwtqp[address] [place] [address]Dr. Tadeo Smyth Urea nitrogen [Mass/Vol] 19.0 mg/dL Critically high 7.0-18.0 [facility] Comment on above: Performed By: #### L DIANN HALL, VIJI ####[facility] Pfewqzuxmt[address] [place] [address]Dr. Tadeo Smyth Urea nitrogen/Creatinine [Mass ratio] 21.3 mg/mg Normal [facility] Comment on above: Performed By: #### L DIANN HALL, VIJI ####[facility] Sxxhpbblwh40[address] [place] [address]Dr. Tadeo Smyth URINE MICROSCOPIC ONLYon BACTERIA TRACE Abnormal NONE SEEN [facility] Comment on above: Performed By: #### SANDRO MERCHANTRO ####[facility] Sszdhrfgvf24[address] [place] [address]Dr. Tadeo Smyth Bacteria identified Cx Nom (U) NOT INDICATED Normal [facility] Comment on above: Performed By: #### SANDRO MERCHANTRO ####[facility] Ndazwzrsuz0139 [place] [address]Dr. Tadeo Smyth CAST NONE SEEN Normal NONE SEEN [facility] Comment on above: Performed By: #### SANDRO MERCHANTRO ####[facility] Atvypgvriv75[address] [place] [address]Dr. Tadeo Smyth Crystals LM Nom (Urine sed) SEEN Abnormal NONE SEEN [facility] Comment on above: Performed By: #### KAROL MERHCANT ####[facility] Vxedxneuwi60[address] [place], [place] [address]Dr. Tadeo Smyth Epithelial cells LM Ql (Urine sed) RARE Normal NONE SEEN /RARE [facility] Comment on above: Performed By: #### KAROL MERCHANT ####[facility] Nxprrhpiuq2847[address] [place], [place] [address]Dr. Tadeo Smyth MUCOUS TRACE Abnormal NONE SEEN [facility] Comment on above: Performed By: #### KAROL MERCHANT ####[facility] Gibjqszgim6[address] [place], [place] [address]Dr. Tadeo Smyth RBC 0-2 Normal 0-2 [facility] Comment on above: Performed By: #### KAROL MERCHANT ####[facility] Rvsvbttktc8[address] [place], [place] [address]Dr. Tadeo Smyth WBC 0-2 Abnormal NONE SEEN [facility] Comment on above: Performed By: #### KAROL MERCHANT ####[facility] Qqenbrfhts[address] [place], [place] [address]Dr. Tadeo Smyth CBC AUTO DIFFon 09-14-2022 BASO # 0.0 103/ul Normal 0.0-0.1 [facility] Comment on above: Performed By: #### C BC ####[facility] Bhaxcmnhru9[address] [place], [place] [address]Dr. Tadeo Smyth Basophils/100 WBC (Bld) 0.3 % Normal 0.2-2.0 [facility] Comment on above: Performed By: #### C BC ####[facility] Xlnckihqrc5427[address] [place], [place] [address]Dr. Tadeo Smyth EO # 0.2 103/ul Normal 0.0-0.7 [facility] Comment on above: Performed By: #### C BC ####[facility] Ksmnpswbcm8020[address] [place], [place] [address]Dr. Tadeo Smyth Eosinophils/100 WBC (Bld) 1.1 % Normal 0.9-7.0 [facility] Comment on above: Performed By: #### C BC ####[facility] Hchdmziuld38[address] [place] [address]Dr. Tadeo Smyth Erythrocyte distribution width (RBC) [Ratio] 13.7 % Normal 11.0-15.0 [facility] Comment on above: Performed By: #### C BC ####[facility] Rsgxiljafo8[address] [place] [address]Dr. Tadeo Smyth Hematocrit (Bld) [Volume fraction] 41.3 % Normal 36.0-48.0 [facility] Comment on above: Performed By: #### C BC ####[facility] Rtdacgabzx9171 [place] [address]Dr. Tadeo Smyth Hemoglobin (Bld) [Mass/Vol] 13.6 g/dL Normal 12.0-16.0 [facility] Comment on above: Performed By: #### C BC ####[facility] Oronsjazxs5137[address] [place], [place] [address]Dr. Tadeo Smyth IG # 0.05 10e3/ul Critically high 0.00-0.[address] [facility] Comment on above: Performed By: #### C BC ####[facility] Nlxlcehedf8790[address] [place], [place] [address]Dr. Tadeo Smyth IG % 0.4 % Normal 0.0-0.5 [facility] Comment on above: Performed By: #### C BC ####[facility] Lyhmnonlfv5837[address] [place], [place] [address]Dr. Tadeo Smyth LYMPH # 2.2 103/ul Normal 1.2-3.8 [facility] Comment on above: Performed By: #### C BC ####[facility] Rukjlymtvz6811[address] [place], [place] [address]Dr. Tadeo Smyth Lymphocytes/100 WBC (Bld) 16.3 % Critically low 20.5-60.0 [facility] Comment on above: Performed By: #### C BC ####[facility] Auvndcrcrw18[address] [place] [address]Dr. Tadeo Haja MANUAL DIFF REQ NO Normal [facility] Comment on above: Performed By: #### C BC ####[facility] Ugvmrpydkw8[address] [place] [id number]. Tadeo Smyth MCH (RBC) [Entitic mass] 28.9 pg Normal 26.7-34.0 [facility] Comment on above: Performed By: #### C BC ####[facility] Amayyelbmu4404 [place] [address]Dr. Tadeo Haja MCHC (RBC) [Mass/Vol] 32.9 g/dL Normal 29.9-35.2 [facility] Comment on above: Performed By: #### C BC ####[facility] Vsgxycwqev684[address] [place], [place] [address]Dr. Tadeo Haja MCV (RBC) [Entitic vol] 87.9 fL Normal 81.0-99.0 [facility] Comment on above: Performed By: #### C BC ####[facility] Ntbvdekwpr35[address] [place], [place] [address]Dr. Tadeo Haja MONO # 0.7 103/ul Normal 0.3-0.8 [facility] Comment on above: Performed By: #### C BC ####[facility] Afboxcfhlh1596[address] [place], [place] [address]Dr. Tadeo Smyth Monocytes/100 WBC (Bld) 5.1 % Normal 1.7-12.0 [facility] Comment on above: Performed By: #### C BC ####[facility] Rdchkvvnow1210 [place] [address]Dr. Margotnicole Haja NEUT # 10.3 103/ul Critically high 1.4-6.5 [facility] Comment on above: Performed By: #### C BC ####[facility] Bfwljjejid2639[address] [place], [place] [address]Dr. Tadeo Smyth Neutrophils/100 WBC (Bld) 76.8 % Critically high 43.0-75.0 [facility] Comment on above: Performed By: #### C BC ####[facility] Fkwrhdlnlr9142 [place] [address]Dr. Tadeo Smyth Platelet mean volume (Bld) [Entitic vol] 8.8 fL Critically low 9.5-13.5 [facility] Comment on above: Performed By: #### C BC ####[facility] Qrelhowlwu4421 [place] [address]Dr. Tadeo Smyth PLT 438 103/ul Normal 150-450 [facility] Comment on above: Performed By: #### C BC ####[facility] Jfnleluucx5946 [place] [address]Dr. Tadeo Smyth RBC 4.70 106/ul Normal 4.20-5.40 [facility] Comment on above: Performed By: #### C BC ####[facility] Egujslesmm7396[address] [place], [place] [address]Dr. Tadeo Smyth WBC 13.4 103/ul Critically high 4.0-11.0 [facility] Comment on above: Performed By: #### C BC ####[facility] Mjikelzdyf6024[address] [place], [place] [address]Dr. Tadeo Smyth ER URINE PROFILEon 3 Bilirubin Ql (U) Negative Normal NEGATIVE [facility] Comment on above: Performed By: #### KAROL MERCHANT ####[facility] Hakkhknlob8646 [place] [address]Dr. Tadeo Smyth Clarity (U) CLEAR Normal CLEAR [facility] Comment on above: Performed By: #### SANDRO MERCHANTRO ####[facility] Nhchdztmhw6946 [place] [address]Dr. Tadeo Smyth Color (U) LT. YELLOW Normal YELLOW [facility] Comment on above: Performed By: #### SANDRO MERCHANTRO ####[facility] Oaoswypniq25[address] [place], [place] [address]Dr. Tadeo Smyth ERUAHD A micrscopic examina tion will be performed if indicated. Normal [facility] Comment on above: Performed By: #### SANDRO MERCHANTRO ####[facility] Dimckewerh334[address] [place], [place] [address]Dr. Tadeo Smyth Glucose Ql (U) Negative Normal NEGATIVE [facility] Comment on above: Performed By: #### Matthew FRANCISCO UMICRO ####[facility] Inginkgbvw7390[address] [place], [place] [address]Dr. Tadeo Smyth Hemoglobin Ql (U) TRACE-INTACT Abnormal NEGATIVE [facility] Comment on above: Performed By: #### Matthew FRANCISCO UMICRO ####[facility] Aeovkhglxs9928[address] [place], [place] [address]Dr. Tadeo Haja Ketones Ql (U) Negative Normal NEGATIVE [facility] Comment on above: Performed By: #### Matthew FRANCISCO UMICRO ####[facility] Borylluetp176[address] [place], [place] [address]Dr. Tadeo Smyth LEUKOCYTES Negative Normal NEGATIVE [facility] Comment on above: Performed By: #### Matthew FRANCISCO UMICRO ####[facility] Dvjecdutis3824[address] [place], [place] [address]Dr. Margotnicole Smyth Nitrite Ql (U) Negative Normal NEGATIVE [facility] Comment on above: Performed By: #### Matthew FRANCISCO UMICRO ####[facility] Dqolceiwhi4064[address] [place], [place] [address]Dr. Margotnicole Haja pH (U) 6.5 [pH] Normal 5-9 [facility] Comment on above: Performed By: #### Matthew FRANCISCO UMICRO ####[facility] Yabztxtiix12[address] [place], [place] [address]Dr. Tadeo Smyth SPEC GRAVITY 1.020 Normal 1.005-<=1.[address] [place] [address] Comment on above: Performed By: #### Matthew FRANCISCO UMICRO ####[facility] Zzvkxhbucr1325[address] [place], [place] [address]Dr. Tadeo Smyth UA PROTEIN Negative Normal NEGATIVE/ TRACE [facility] Comment on above: Performed By: #### Matthew FRANCISCO UMICRO ####[facility] Anzyxmbolo1825[address] [place], [place] [address]Dr. Tadeo Smyth UR MICRO IND INDICATED Normal [facility] Comment on above: Performed By: #### KAROL MERCHANT ####[facility] Kfhcavcony5120 [place] [address]Dr. Tadeo Smyth Urobilinogen Qn (U) 0.2 {Benito'U}/dL Normal 0.2 - 1. 0 [facility] Comment on above: Performed By: #### KAROL MERCHANT ####[facility] Vupsfoyktd3564 [place] [address]Dr. Tadeo Smyth LIPASEon 09-14-2022 Lipase [Catalytic activity/Vol] 117.0 U/L Normal 73.0-393.0 [facility] Comment on above: Performed By: #### H STROPN, CMP, LIPA ####[facility] Uejhwoodbw6223 [place] [address]Dr. Tadeo Smyth PROF 14(COMP METB)on 023 Albumin [Mass/Vol] 3.5 g/dL Normal 3.4-5.0 [facility] Comment on above: Performed By: #### H STROPN, CMP, LIPA ####[facility] Doruujmera044[address] [place] [address]Dr. Tadeo Smyth Albumin/Globulin [Mass ratio] 0.8 {ratio} Normal [facility] Comment on above: Performed By: #### H STROPN, CMP, LIPA ####[facility] Libainwkta1651 [place] [address]Dr. Tadeo Smyth ALP [Catalytic activity/Vol] 180 U/L Critically high 46-116 [facility] Comment on above: Performed By: #### H STROPN, CMP, LIPA ####[facility] Vuozlvhxco72[address] [place] [address]Dr. Tadeo Smyth ALT [Catalytic activity/Vol] 25 U/L Normal 14-59 [facility] Comment on above: Performed By: #### H STROPN, CMP, LIPA ####[facility] Cvheabxzri4209 [place] [address]Dr. Tadeo Smyth Anion gap [Moles/Vol] 14.4 mmol/L Normal [facility] Comment on above: Performed By: #### H STROPN, CMP, LIPA ####[facility] Pinkbjgznv[address] [place] [address]Dr. Tadeo Smyth AST [Catalytic activity/Vol] 14 U/L Critically low 15-37 [facility] Comment on above: Performed By: #### H STROPN, CMP, LIPA ####[facility] Dopfduqmnv[address] [place] [address]Dr. Tadeo Smyth Bilirubin [Mass/Vol] 0.2 mg/dL Normal 0.2-1.0 [facility] Comment on above: Performed By: #### H STROPN, CMP, LIPA ####[facility] Rrfstglspx46[address] [place] [address]Dr. Tadeo Smyth Calcium [Mass/Vol] 9.4 mg/dL Normal 8.5-10.1 [facility] Comment on above: Performed By: #### H STROPN, CMP, LIPA ####[facility] Xjoutrittl[address] [place] [address]Dr. Tadeo Smyth Chloride [Moles/Vol] 107 mmol/L Normal 98-107 [facility] Comment on above: Performed By: #### H STROPN, CMP, LIPA ####[facility] Thuazbjbdh[address] [place], [place] [address]Dr. Tadeo Smyth CO2 [Moles/Vol] 23.9 mmol/L Normal 21.0-32.0 [facility] Comment on above: Performed By: #### H STROPN, CMP, LIPA ####[facility] Xkwcafnwjg[address] [place], [place] [address]Dr. Tadeo Smyth Creatinine [Mass/Vol] 0.91 mg/dL Normal 0.55-1.02 [facility] Comment on above: Performed By: #### H STROPN, CMP, LIPA ####[facility] Bqtrmdsd[address] [place], [place] [address]Dr. Tadeo Smyth EGFR-AF KOSOVAN >60 Normal >=60 [facility] Comment on above: Performed By: #### H STROPN, CMP, LIPA ####[facility] Ndrilscxba4[address] [place] [address]Dr. Tadeo Smyth EGFR-NON AF KOSOVAN >60 Normal >=60 [facility] Comment on above: Performed By: #### H STROPN, CMP, LIPA ####[facility] Mlgqshgbyg30[address] [place] [address]Dr. Tadeo Smyth Globulin (S) [Mass/Vol] 4.2 g/dL Normal [facility] Comment on above: Performed By: #### H STROPN, CMP, LIPA ####[facility] Foyrnuijhl[address] [place] [address]Dr. Tadeo Smyth Glucose [Mass/Vol] 101 mg/dL Normal 74-106 [facility] Comment on above: Performed By: #### H STROPN, CMP, LIPA ####[facility] Brfbahhngu[address] [place] [address]Dr. Tadeo Smyth Potassium [Moles/Vol] 3.3 mmol/L Critically low 3.5-5.1 [facility] Comment on above: Performed By: #### H STROPN, CMP, LIPA ####[facility] Pnqoawxzil[address] [place] [address]Dr. Tadeo Smyth Protein [Mass/Vol] 7.7 g/dL Normal 6.4-8.2 [facility] Comment on above: Performed By: #### H STROPN, CMP, LIPA ####[facility] Oloqnwjtey[address] [place] [address]Dr. Tadeo Smyth Sodium [Moles/Vol] 142 mmol/L Normal 136-145 [facility] Comment on above: Performed By: #### H STROPN, CMP, LIPA ####[facility] Jvroitznmc[address] [place] [address]Dr. Tadeo Smyth Urea nitrogen [Mass/Vol] 17.0 mg/dL Normal 7.0-18.0 [facility] Comment on above: Performed By: #### H STROPN, CMP, LIPA ####[facility] Fmdwjbfenh5[address] [place] [address]Dr. Tadeo Smyth Urea nitrogen/Creatinine [Mass ratio] 18.7 mg/mg Normal [facility] Comment on above: Performed By: #### H STROPN, CMP, LIPA ####[facility] Becmkimerh[address] [place] [address]Dr. Tadeo Smyth TROPONIN, HIGH SENSITIVITYon 09-14-2022 HSTROP 46.6 pg/mL Normal 4.0-51.3 [facility] Comment on above: Result Comment: CUT- OFF POINTS HAVE BEEN ESTABLISHED BASED ON THE FOURTH UNIVERSAL DEFINITIONS OF MYOCARDIALINFARCTION. THE UPPER REFERENCE LIMIT (URL) OF TROPONIN, DEFINED THE 99TH PERCENTILE OFcTnI DISTRIBUTION IN A REFERENCE POPULATION, HAS BEEN CONFIRMED THE DECISION THRESHOLDFOR HI DIAGNOSIS. Performed By: #### H STROPN, CMP, LIPA ####[facility] Lynvbyqopd[address] [place] [address]Dr. Tadeo Smyth URINE MICROSCOPIC ONLYon BACTERIA NONE SEEN Normal NONE SEEN [facility] Comment on above: Performed By: #### Matthew FRANCISCO UMICRO ####[facility] Drytsiqmmc94[address] [place], [place] [address]Dr. Tadeo Smyth Bacteria identified Cx Nom (U) NOT INDICATED Normal [facility] Comment on above: Performed By: #### Matthew FRANCISCO UMICRO ####[facility] Uqgvismpfw[address] [place], [place] [address]Dr. Tadeo Smyth CAST NONE SEEN Normal NONE SEEN [facility] Comment on above: Performed By: #### Matthew FRANCISCO UMICRO ####[facility] Zcrzevulew7[address] [place], [place] [address]Dr. Tadeo Smyth Crystals LM Nom (Urine sed) NONE SEEN Normal NONE SEEN [facility] Comment on above: Performed By: #### Matthew RUYovanny UMICRO ####[facility] Ilxsgntakg228[address] [place], [place] [address]Dr. Tadeo Smyth Epithelial cells LM Ql (Urine sed) FEW Abnormal NONE SEEN /RARE [facility] Comment on above: Performed By: #### E RUYovanny UMICRO ####[facility] Jzdxkdvdem[address] [place], [place] [address]Dr. Tadeo Smyth MUCOUS MODERATE Abnormal NONE SEEN [facility] Comment on above: Performed By: #### E RUR, UMICRO ####[facility] Ixazowwdeo[address] [place] [id number]. Tadeo Smyth RBC 0-2 Normal 0-2 [facility] Comment on above: Performed By: #### KAROL MERCHANT ####[facility] Ppnldfknzs33[address] [place] [phone]. Tadeo Smyth WBC NONE SEEN Normal NONE SEEN [facility] Comment on above: Performed By: #### KAROL MERCHANT ####[facility] Meziuumahi101[address] [place] [phone]. Tadeo Smyth XR ABD FLAT UP_PA Kasey 09-14 XR ABD FLAT UP_PA CH Normal [facility] VC COMP CONSULTATIONon 09-06 VC COMP CONSULTATION Normal [facility] VC VENOUS REFLUX MACARIO LMTon 0 09-06-2022 VC VENOUS REFLUX MACARIO LMT Normal [facility] XR KUB 1 VIEWon 08-18-2022 XR KUB 1 VIEW Normal [facility] US RUBENS DOP LEG RTon 08-11-20 US RUBENS DOP LEG RT Normal The [facility] AMYLASEon 08-08-2022 Amylase [Catalytic activity/Vol] 64 U/L Normal 25-115 [facility] Comment on above: Performed By: #### C MP, VIJI, LIPA, CMADM ####[facility] Kczuembdco[address] [place] [address]Dr. Tadeo Smyth CARDIAC NORA ADMITon 022 CK [Catalytic activity/Vol] 127 U/L Normal 26-192 [facility] Comment on above: Performed By: #### C MP, VIJI, LIPA, CMADM ####[facility] Iulhlpylei37[address] [place] [phone]. Tadeo Smyth CK.MB [Mass/Vol] 1.71 ng/mL Normal <=3.60 [facility] Comment on above: Performed By: #### C MP, VIJI, LIPA, CMADM ####[facility] Bnuckmotpn49[address] [place] [phone]. Tadeo Smyth HSTROP 36.7 pg/mL Normal 4.0-51.3 [facility] Comment on above: Result Comment: CUT- OFF POINTS HAVE BEEN ESTABLISHED BASED ON THE FOURTH UNIVERSAL DEFINITIONS OF MYOCARDIALINFARCTION. THE UPPER REFERENCE LIMIT (URL) OF TROPONIN, DEFINED THE 99TH PERCENTILE OFcTnI DISTRIBUTION IN A REFERENCE POPULATION, HAS BEEN CONFIRMED THE DECISION THRESHOLDFOR HI DIAGNOSIS. Performed By: #### C MP, VIJI, LIPA, CMADM ####[facility] Nuxoyxqlsy[address] [place] [address]Dr. Tadeo Smyth AAKASH 23 ng/mL Normal 9-82 [facility] Comment on above: Performed By: #### C MP, VIJI, LIPA, CMADM ####[facility] Umytbtsjsj77[address] [place] [address]Dr. Tadeo Smyth CBC AUTO DIFFon 08-08-2022 BASO # 0.0 103/ul Normal 0.0-0.1 [facility] Comment on above: Performed By: #### C BC ####[facility] Qchmcgvtfn[address] [place], [place] [address]Dr. Tadeo Smyth Basophils/100 WBC (Bld) 0.4 % Normal 0.2-2.0 [facility] Comment on above: Performed By: #### C BC ####[facility] Utmbqxdgqd4[address] [place], [place] [address]Dr. Tadeo Smyth EO # 0.1 103/ul Normal 0.0-0.7 [facility] Comment on above: Performed By: #### C BC ####[facility] Fgwlhwejpf[address] [place], [place] [address]Dr. Tadeo Smyth Eosinophils/100 WBC (Bld) 1.5 % Normal 0.9-7.0 [facility] Comment on above: Performed By: #### C BC ####[facility] Onycpgdupb[address] [place], [place] [address]Dr. Tadeo Smyth Erythrocyte distribution width (RBC) [Ratio] 13.5 % Normal 11.0-15.0 [facility] Comment on above: Performed By: #### C BC ####[facility] Znkatxwass6560[address] [place], [place] [address]Dr. Tadeo Smyth Hematocrit (Bld) [Volume fraction] 37.0 % Normal 36.0-48.0 [facility] Comment on above: Performed By: #### C BC ####[facility] Otpozaxvzf8[address] [place] [address]DrNeo Tadeo Smyth Hemoglobin (Bld) [Mass/Vol] 12.0 g/dL Normal 12.0-16.0 [facility] Comment on above: Performed By: #### C BC ####[facility] Grcchjwxmy8[address] [place] [address]DrNeo Frostnicole Haja IG # 0.02 10e3/ul Normal 0.00-0.03 [facility] Comment on above: Performed By: #### C BC ####[facility] Plrxyyfgug[address] [place], [place] [address]DrNeo Margotnicole Smyth IG % 0.3 % Normal 0.0-0.5 [facility] Comment on above: Performed By: #### C BC ####[facility] Eqsojteluj[address] [place], [place] [address]DrNeo Margotnicole Smyth LYMPH # 2.0 103/ul Normal 1.2-3.8 [facility] Comment on above: Performed By: #### C BC ####[facility] Cjqunshwxf[address] [place], [place] [address]DrNeo Margotnicole Smyth Lymphocytes/100 WBC (Bld) 27.9 % Normal 20.5-60.0 [facility] Comment on above: Performed By: #### C BC ####[facility] Lbchbddqob[address] [place], [place] [address]DrNeo Smyth MANUAL DIFF REQ NO Normal [facility] Comment on above: Performed By: #### C BC ####[facility] Azadoyvhnp054[address] [place], [place] [address]DrNeo Smyth MCH (RBC) [Entitic mass] 28.9 pg Normal 26.7-34.0 [facility] Comment on above: Performed By: #### C BC ####[facility] Ovcxwcwybi64[address] [place], [place] [address]DrNeo Margotnicole Smyth MCHC (RBC) [Mass/Vol] 32.4 g/dL Normal 29.9-35.2 [facility] Comment on above: Performed By: #### C BC ####[facility] Pwrcqaxhjb2248 [place] [address]DrNeo Smyth MCV (RBC) [Entitic vol] 89.2 fL Normal 81.0-99.0 [facility] Comment on above: Performed By: #### C BC ####[facility] Aiiwhflmoh[address] [place], [place] [address]DrNeo Smyth MONO # 0.5 103/ul Normal 0.3-0.8 [facility] Comment on above: Performed By: #### C BC ####[facility] Kuiuqvqads[address] [place], [place] [address]DrNeo Smyth Monocytes/100 WBC (Bld) 6.7 % Normal 1.7-12.0 [facility] Comment on above: Performed By: #### C BC ####[facility] Fgeemfqcal94[address] [place], [place] [address]DrNeo Smyth NEUT # 4.5 103/ul Normal 1.4-6.5 [facility] Comment on above: Performed By: #### C BC ####[facility] Umbwkyebqx4324[address] [place], [place] [address]DrNeo Smyth Neutrophils/100 WBC (Bld) 63.2 % Normal 43.0-75.0 [facility] Comment on above: Performed By: #### C BC ####[facility] Mswukuvfpk4[address] [place], [place] [address]DrNeo Smyth Platelet mean volume (Bld) [Entitic vol] 9.0 fL Critically low 9.5-13.5 [facility] Comment on above: Performed By: #### C BC ####[facility] Yzfgbsgmpw317[address] [place], [place] [address]DrNeo Smyth PLT 382 103/ul Normal 150-450 [facility] Comment on above: Performed By: #### C BC ####[facility] Xpvkafzzrk0411[address] [place], [place] [address]DrNeo Smyth RBC 4.15 106/ul Critically low 4.20-5.40 [facility] Comment on above: Performed By: #### C BC ####[facility] Ceqbazsljx7020[address] [place], [place] [address]Dr. Margotnicole Haja WBC 7.1 103/ul Normal 4.0-11.0 [facility] Comment on above: Performed By: #### C BC ####[facility] Kznqxpikdo3177[address] [place], [place] [address]Dr. Tadeo Smyth CT ABD/PELV W CONon 08-08-[address] ABD/PELV W CON Normal The [facility] ER URINE PROFILEon 2 Bilirubin Ql (U) Negative Normal NEGATIVE [facility] Comment on above: Performed By: #### KAROL MERCHANT ####[facility] Ilvxfyltmx[address] [place], [place] [address]Dr. Tadeo Smyth Clarity (U) CLEAR Normal CLEAR [facility] Comment on above: Performed By: #### KAROL MERCHANT ####[facility] Fdphdhjxmp11[address] [place], [place] [address]Dr. Tadeo Smyth Color (U) YELLOW Normal YELLOW [facility] Comment on above: Performed By: #### KAROL MERCHANT ####[facility] Icsczyieok[address] [place], [place] [address]Dr. Tadeo Smyth ERUAHD A micrscopic examina tion will be performed if indicated. Normal [facility] Comment on above: Performed By: #### KAROL MERCHANT ####[facility] Kcmjeoopoy6840[address] [place], [place] [address]Dr. Tadeo Smyth Glucose Ql (U) Negative Normal NEGATIVE [facility] Comment on above: Performed By: #### KAROL MERCHANT ####[facility] Tdhpgzzbrt804[address] [place], [place] [address]Dr. Tadeo Smyth Hemoglobin Ql (U) TRACE-LYSED Abnormal NEGATIVE [facility] Comment on above: Performed By: #### KAROL MERCHANT ####[facility] Hnrvnizbyf99[address] [place], [place] [address]Dr. Tadeo Smyth Ketones Ql (U) TRACE Abnormal NEGATIVE [facility] Comment on above: Performed By: #### KAROL MERCHANT ####[facility] Jpsbqadqfh24[address] [place], [place] [address]Dr. Tadeo Smyth LEUKOCYTES Negative Normal NEGATIVE [facility] Comment on above: Performed By: #### SANDRO MERCHANTRO ####[facility] Phqgrntnbd47[address] [place] [address]Dr. Tadeo Smyth Nitrite Ql (U) Negative Normal NEGATIVE [facility] Comment on above: Performed By: #### SANRDO MERCHANTRO ####[facility] Lqcxyjpmtj[address] [place], [place] [address]Dr. Tadeo Smyth pH (U) 6.0 [pH] Normal 5-9 [facility] Comment on above: Performed By: #### KAROL MERCHANT ####[facility] Qzibrrxayz28[address] [place], [place] [address]Dr. Tadeo Smyth SPEC GRAVITY >=1.030 Abnormal 1.005-<=1.0 25 [facility] Comment on above: Performed By: #### SANDRO MERCHANTRO ####[facility] Pbkdfaxgpd47[address] [place], [place] [address]Dr. Tadeo Smyth UA PROTEIN TRACE Normal NEGATIVE/ TRACE [facility] Comment on above: Performed By: #### SANDRO MERCHANTRO ####[facility] Lygyxopklj32[address] [place], [place] [address]Dr. Tadeo Smyth UR MICRO IND INDICATED Normal [facility] Comment on above: Performed By: #### SANDRO MERCHANTRO ####[facility] Lhfrpkrwjx39[address] [place], [place] [address]Dr. Tadeo Smyth Urobilinogen Qn (U) 0.2 {Benito'U}/dL Normal 0.2 - 1. 0 [facility] Comment on above: Performed By: #### SANDRO MERCHANTRO ####[facility] Qdxohlstgv3[address] [place], [place] [address]Dr. Tadeo Smyth LACTATE/LACTIC ACIDon 2021 Lactate [Moles/Vol] 1.3 mmol/L Normal 0.4-1.9 [facility] Comment on above: Performed By: #### L ACT ####[facility] Zsixrmdbii99[address] [place] [address]Dr. Tadeo Smyth LIPASEon 08-08-2022 Lipase [Catalytic activity/Vol] 120.0 U/L Normal 73.0-393.0 [facility] Comment on above: Performed By: #### C MP, VIJI, LIPA, CMADM ####[facility] Gbgocomerq35[address] [place] [address]Dr. Tadeo Smyth PROF 14(COMP METB)on 022 Albumin [Mass/Vol] 3.8 g/dL Normal 3.4-5.0 [facility] Comment on above: Performed By: #### C MP, VIJI, LIPA, CMADM ####[facility] Nciognuysk36[address] [place] [address]Dr. Tadeo Smyth Albumin/Globulin [Mass ratio] 1.1 {ratio} Normal [facility] Comment on above: Performed By: #### C MP, VIJI, LIPA, CMADM ####[facility] Dcduzhwmwp38[address] [place] [address]Dr. Tadeo Smyth ALP [Catalytic activity/Vol] 145 U/L Critically high 46-116 [facility] Comment on above: Performed By: #### C MP, VIJI, LIPA, CMADM ####[facility] Imstxnhyzj6035 [place] [address]Dr. Tadeo Smyth ALT [Catalytic activity/Vol] 30 U/L Normal 14-59 [facility] Comment on above: Performed By: #### C MP, VIJI, LIPA, CMADM ####[facility] Qgdgzcdqnb7329 [place] [address]Dr. Tadeo Smyth Anion gap [Moles/Vol] 11.5 mmol/L Normal [facility] Comment on above: Performed By: #### C MP, VIJI, LIPA, CMADM ####[facility] Gnfbqytbss32[address] [place] [address]Dr. Tadeo Smyth AST [Catalytic activity/Vol] 17 U/L Normal 15-37 [facility] Comment on above: Performed By: #### C MP, VIJI, LIPA, CMADM ####[facility] Qoffzxpicm0053 [place] [address]Dr. Tadeo Smyth Bilirubin [Mass/Vol] 0.1 mg/dL Critically low 0.2-1.0 [facility] Comment on above: Performed By: #### C MP, VIJI, LIPA, CMADM ####[facility] Gmjjgkgqdo5[address] [place] [address]Dr. Tadeo Smyth Calcium [Mass/Vol] 8.9 mg/dL Normal 8.5-10.1 [facility] Comment on above: Performed By: #### C MP, VIJI, LIPA, CMADM ####[facility] Xrqlyrbqfk5[address] [place] [address]Dr. Tadeo Smyth Chloride [Moles/Vol] 104 mmol/L Normal 98-107 [facility] Comment on above: Performed By: #### C MP, VIJI, LIPA, CMADM ####[facility] Uevypkiaqs45[address] [place] [address]Dr. Tadeo Smyth CO2 [Moles/Vol] 27.2 mmol/L Normal 21.0-32.0 [facility] Comment on above: Performed By: #### C MP, VIJI, LIPA, CMADM ####[facility] Vzpcfpqetv3274 [place] [address]Dr. Tadeo Smyth Creatinine [Mass/Vol] 0.90 mg/dL Normal 0.55-1.02 [facility] Comment on above: Performed By: #### C MP, VIJI, LIPA, CMADM ####[facility] Iibbgvlmmr7[address] [place] [address]Dr. Tadeo Smyth EGFR-AF KOSOVAN >60 Normal >=60 [facility] Comment on above: Performed By: #### C MP, VIJI, LIPA, CMADM ####[facility] Bosugpibju3[address] [place] [address]Dr. Tadeo Smyth EGFR-NON AF KOSOVAN >60 Normal >=60 [facility] Comment on above: Performed By: #### C MP, VIJI, LIPA, CMADM ####[facility] Todpbkrwdh18[address] [place] [address]Dr. Tadeo Smyth Globulin (S) [Mass/Vol] 3.5 g/dL Normal [facility] Comment on above: Performed By: #### C MP, VIJI, LIPA, CMADM ####[facility] Yvfbzdytqh9[address] [place] [address]Dr. Margotlan Smyth Glucose [Mass/Vol] 98 mg/dL Normal 74-106 [facility] Comment on above: Performed By: #### C MP, VIJI, LIPA, CMADM ####[facility] Magzehsiwo[address] [place] [address]Dr. Tadeo Smyth Potassium [Moles/Vol] 3.7 mmol/L Normal 3.5-5.1 [facility] Comment on above: Performed By: #### C MP, VIJI, LIPA, CMADM ####[facility] Ymvbmeuxfi7032 [place] [address]Dr. Margotlan Smyth Protein [Mass/Vol] 7.3 g/dL Normal 6.4-8.2 [facility] Comment on above: Performed By: #### C MP, VIJI, LIPA, CMADM ####[facility] Guhlfqkkuu86[address] [place] [address]Dr. Margotlan Smyth Sodium [Moles/Vol] 139 mmol/L Normal 136-145 [facility] Comment on above: Performed By: #### C MP, VIJI, LIPA, CMADM ####[facility] Rrwuzfmvod1303 [place] [address]Dr. Margotlan Smyth Urea nitrogen [Mass/Vol] 25.0 mg/dL Critically high 7.0-18.0 [facility] Comment on above: Performed By: #### C MP, VIJI, LIPA, CMADM ####[facility] Wlcniwvnuu5[address] [place] [address]Dr. Tadeo Smyth Urea nitrogen/Creatinine [Mass ratio] 27.8 mg/mg Normal [facility] Comment on above: Performed By: #### C MP, VIJI, LIPA, CMADM ####[facility] Kzykennmwl[address] [place] [address]Dr. Tadeo Smyth URINE MICROSCOPIC ONLYon BACTERIA NONE SEEN Normal NONE SEEN [facility] Comment on above: Performed By: #### Matthew FRANCISCO, UMICRO ####[facility] Evmalqpehg[address] [place] [address]Dr. Tadeo Smyth Bacteria identified Cx Nom (U) NOT INDICATED Normal [facility] Comment on above: Performed By: #### Matthew FRANCISCO, UMICRO ####[facility] Lbzrancvmw5348 [place] [address]Dr. Tadeo Smyth CAST NONE SEEN Normal NONE SEEN [facility] Comment on above: Performed By: #### Matthew FRANCISCO UMICRO ####[facility] Quqrrgjnoj2[address] [place] [address]Dr. Tadeo Smyth Crystals LM Nom (Urine sed) NONE SEEN Normal NONE SEEN [facility] Comment on above: Performed By: #### Matthew FRANCISCO UMICRO ####[facility] Daebsyfbhj8307 [place] [address]Dr. Tadeo Smyth Epithelial cells LM Ql (Urine sed) FEW Abnormal NONE SEEN /RARE [facility] Comment on above: Performed By: #### Matthew FRANCISCO UMICRO ####[facility] Xcozticcdt2038 [place] [address]Dr. Tadeo Smyth MUCOUS NONE SEEN Normal NONE SEEN [facility] Comment on above: Performed By: #### Matthew FRANCISCO, UMICRO ####[facility] Zovohdiqak9294 [place] [address]Dr. Tadeo Smyth RBC 2-5 Abnormal 0-2 [facility] Comment on above: Performed By: #### Matthew FRANCISCO UMICRO ####[facility] Itivgbdziq9311 [place] [address]Dr. Tadeo Smyth WBC NONE SEEN Normal NONE SEEN [facility] Comment on above: Performed By: #### Matthew FRANCISCO UMICRO ####[facility] Hjzvskxqth0509 [place] [address]Dr. Tadeo Smyth AMYLASEon 07-21-2022 Amylase [Catalytic activity/Vol] 49 U/L Normal 25-115 [facility] Comment on above: Performed By: #### L ISABEL, VIJI, CMP ####[facility] Zzryxebnat[address] [place] [address]Dr. Tadeo Smyth CBC AUTO DIFFon 07-21-2022 BASO # 0.0 103/ul Normal 0.0-0.1 [facility] Comment on above: Performed By: #### C BC ####[facility] Itwszzmpyg38[address] [place] [address]Dr. Tadeo Haja Basophils/100 WBC (Bld) 0.6 % Normal 0.2-2.0 [facility] Comment on above: Performed By: #### C BC ####[facility] Rpxexkdeba[address] [place], [place] [address]Dr. Tadeo Smyth EO # 0.2 103/ul Normal 0.0-0.7 [facility] Comment on above: Performed By: #### C BC ####[facility] Uoutsguwii[address] [place], [place] [address]Dr. Tadeo Smyth Eosinophils/100 WBC (Bld) 3.1 % Normal 0.9-7.0 [facility] Comment on above: Performed By: #### C BC ####[facility] Lfnfwpidvl[address] [place], [place] [address]Dr. Tadeo Smyth Erythrocyte distribution width (RBC) [Ratio] 13.2 % Normal 11.0-15.0 [facility] Comment on above: Performed By: #### C BC ####[facility] [address]zmfgtfhe[address] [place], [place] [address]Dr. Tadeo Smyth Hematocrit (Bld) [Volume fraction] 35.7 % Critically low 36.0-48.0 [facility] Comment on above: Performed By: #### C BC ####[facility] Ypggdljshi[address] [place], [place] [address]Dr. Tadeo Haja Hemoglobin (Bld) [Mass/Vol] 11.6 g/dL Critically low 12.0-16.0 [facility] Comment on above: Performed By: #### C BC ####[facility] Jmalioujej[address] [place] [address]Dr. Tadeo Smyth IG # 0.01 10e3/ul Normal 0.00-0.03 [facility] Comment on above: Performed By: #### C BC ####[facility] Saboldltef[address] [place] [address]Dr. Tadeo Smyth IG % 0.2 % Normal 0.0-0.5 [facility] Comment on above: Performed By: #### C BC ####[facility] Pdiyuyyeip[address] [place] [address]Dr. Tadeo Smyth LYMPH # 1.9 103/ul Normal 1.2-3.8 [facility] Comment on above: Performed By: #### C BC ####[facility] Xhkpukltcs1322 [place] [address]DrNeo Smyth Lymphocytes/100 WBC (Bld) 34.8 % Normal 20.5-60.0 [facility] Comment on above: Performed By: #### C BC ####[facility] Vqwetoiilt3945 [place] [address]DrNeo Smyth MANUAL DIFF REQ NO Normal [facility] Comment on above: Performed By: #### C BC ####[facility] Vvvwgetmgw78[address] [place] [address]Dr. Tadeo Smyth MCH (RBC) [Entitic mass] 29.1 pg Normal 26.7-34.0 [facility] Comment on above: Performed By: #### C BC ####[facility] Ltmrbdwohd97[address] [place] [address]Dr. Tadeo Smyth MCHC (RBC) [Mass/Vol] 32.5 g/dL Normal 29.9-35.2 [facility] Comment on above: Performed By: #### C BC ####[facility] Unidkfojjc1816 [place] [address]Dr. Tadeo Smyth MCV (RBC) [Entitic vol] 89.7 fL Normal 81.0-99.0 [facility] Comment on above: Performed By: #### C BC ####[facility] Eitnhpxcel9094 [place] [id number]. aTdeo Smyth MONO # 0.3 103/ul Normal 0.3-0.8 [facility] Comment on above: Performed By: #### C BC ####[facility] Pamxrvwnnn5179 [place] [id number]. Tadeo Smyth Monocytes/100 WBC (Bld) 6.1 % Normal 1.7-12.0 [facility] Comment on above: Performed By: #### C BC ####[facility] Ojpljnaech0184 [place] [id number]. Tadeo Smyth NEUT # 3.0 103/ul Normal 1.4-6.5 [facility] Comment on above: Performed By: #### C BC ####[facility] Lwjkcqelhy0152 [place] [address]Dr. Tadeo Smyth Neutrophils/100 WBC (Bld) 55.2 % Normal 43.0-75.0 [facility] Comment on above: Performed By: #### C BC ####[facility] Bkmorhxmbr3704 [place] [phone]. Tadeo Smyth Platelet mean volume (Bld) [Entitic vol] 9.0 fL Critically low 9.5-13.5 [facility] Comment on above: Performed By: #### C BC ####[facility] Kftjlnopww9824 [place] [id number]. Tadeo Smyth PLT 358 103/ul Normal 150-450 [facility] Comment on above: Performed By: #### C BC ####[facility] Avomqjkvoe5919 [place] [phone]. Tadeo Smyth RBC 3.98 106/ul Critically low 4.20-5.40 [facility] Comment on above: Performed By: #### C BC ####[facility] Tmmlkrjvth7417 [place] [id number]. Tadeo Smyth WBC 5.4 103/ul Normal 4.0-11.0 [facility] Comment on above: Performed By: #### C BC ####[facility] Lmrvbolijv9612 [place] [address]Dr. Tadeo Smyth LIPASEon 07-21-2022 Lipase [Catalytic activity/Vol] 54.0 U/L Critically low 73.0-393.0 [facility] Comment on above: Performed By: #### L VIJI HALL, CMP ####[facility] Bbmgzogiju9597 [place] [address]Dr. Tadeo Smyth PROF 14(COMP METB)on 022 Albumin [Mass/Vol] 3.5 g/dL Normal 3.4-5.0 [facility] Comment on above: Performed By: #### L VIJI HALL, CMP ####[facility] Wwpmynkzjm0023[address] [place], [place] [address]Dr. Tadeo Smyth Albumin/Globulin [Mass ratio] 0.9 {ratio} Normal [facility] Comment on above: Performed By: #### L VIJI HALL, CMP ####[facility] Ydvsvxtgyd3[address] [place], [place] [address]Dr. Tadeo Smyth ALP [Catalytic activity/Vol] 127 U/L Critically high 46-116 [facility] Comment on above: Performed By: #### L VIJI HALL, CMP ####[facility] Mgxunzgcys5994[address] [place], [place] [address]Dr. Tadeo Smyth ALT [Catalytic activity/Vol] 16 U/L Normal 14-59 [facility] Comment on above: Performed By: #### L VIJI HALL, CMP ####[facility] Cbnooqrptc1122 [place] [address]Dr. Tadeo Smyth Anion gap [Moles/Vol] 10.6 mmol/L Normal [facility] Comment on above: Performed By: #### L VIJI HALL, CMP ####[facility] Cjhpypudqi29[address] [place], [place] [address]Dr. Tadeo Smyth AST [Catalytic activity/Vol] 16 U/L Normal 15-37 [facility] Comment on above: Performed By: #### L VIJI HALL, CMP ####[facility] Jyaijjuaod712[address] [place], [place] [address]Dr. Tadeo Smyth Bilirubin [Mass/Vol] 0.3 mg/dL Normal 0.2-1.0 [facility] Comment on above: Performed By: #### L VIJI HALL, CMP ####[facility] Glyulsjdob0834 [place] [address]Dr. Tadeo Smyth Calcium [Mass/Vol] 9.1 mg/dL Normal 8.5-10.1 [facility] Comment on above: Performed By: #### L VIJI HALL, CMP ####[facility] Aydqgjjrta679[address] [place], [place] [address]Dr. Tadeo Smyth Chloride [Moles/Vol] 104 mmol/L Normal 98-107 [facility] Comment on above: Performed By: #### L VIJI HALL, CMP ####[facility] Nboxxpufkw6468[address] [place], [place] [address]Dr. Tadeo Smyth CO2 [Moles/Vol] 28.0 mmol/L Normal 21.0-32.0 [facility] Comment on above: Performed By: #### L VIJI HALL, CMP ####[facility] Hwrwvtspld67[address] [place], [place] [address]Dr. Tadeo Smyth Creatinine [Mass/Vol] 0.96 mg/dL Normal 0.55-1.02 [facility] Comment on above: Performed By: #### L VIJI HALL, CMP ####[facility] Dawcsgyfin67[address] [place], [place] [address]Dr. Tadeo Smyth EGFR-AF KOSOVAN >60 Normal >=60 [facility] Comment on above: Performed By: #### L VIJI HALL, CMP ####[facility] Dguhgfolty25[address] [place], [place] [address]Dr. Tadeo Smyth EGFR-NON AF KOSOVAN >60 Normal >=60 [facility] Comment on above: Performed By: #### L VIJI HALL, CMP ####[facility] Erhiszbmrh366[address] [place], [place] [address]Dr. Tadeo Smyth Globulin (S) [Mass/Vol] 3.8 g/dL Normal [facility] Comment on above: Performed By: #### L VIJI HALL, CMP ####[facility] Apkselfnms7601 [place] [address]Dr. Tadeo Smyth Glucose [Mass/Vol] 93 mg/dL Normal 74-106 [facility] Comment on above: Performed By: #### L VIJI HALL, CMP ####[facility] Qohgfdpzxk7498 [place] [address]Dr. Tadeo Smyth Potassium [Moles/Vol] 3.6 mmol/L Normal 3.5-5.1 [facility] Comment on above: Performed By: #### L VIJI HALL, CMP ####[facility] Jtzhcljjou6401 [place] [address]Dr. Tadeo Smyth Protein [Mass/Vol] 7.3 g/dL Normal 6.4-8.2 [facility] Comment on above: Performed By: #### L VIJI HALL, CMP ####[facility] Aocisykdhm2231 [place] [address]Dr. Tadeo Haja Sodium [Moles/Vol] 139 mmol/L Normal 136-145 [facility] Comment on above: Performed By: #### L VIJI HALL, CMP ####[facility] Bnysdundio4073 [place] [address]Dr. Tadeo Haja Urea nitrogen [Mass/Vol] 16.0 mg/dL Normal 7.0-18.0 [facility] Comment on above: Performed By: #### L VIJI HALL, CMP ####[facility] Hivuqpbpcs8061 [place] [address]Dr. Tadeo Smyth Urea nitrogen/Creatinine [Mass ratio] 16.7 mg/mg Normal [facility] Comment on above: Performed By: #### L VIJI HALL, CMP ####[facility] Ziphfvcgyl4439 [place] [address]Dr. Tadeo Haja XR ABD FLAT UP_PA Kasey 07-21 XR ABD FLAT UP_PA CH Normal [facility] CULTURE URINEon 07-10-2022 CULTURE URINE Normal [facility] Comment on above: Performed By: #### U RCX ####[facility] Sasqltzujw2216 [place] [address]Dr. Tadeo Smyth INSULINon 07-09-2022 Insulin 15.9 uIU/mL Normal 2.6-24.9 [facility] Comment on above: Performed By: #### I NSULIN ####[facility] Cwuomykcxu6065 [place] [address]Dr. Tadeo Smyth CBC AUTO DIFFon 07-08-2022 BASO # 0.0 103/ul Normal 0.0-0.1 [facility] Comment on above: Performed By: #### C BC ####[facility] Lpwmqxiddv[address] [place], [place] [address]Dr. Tadeo Smyth Basophils/100 WBC (Bld) 0.6 % Normal 0.2-2.0 [facility] Comment on above: Performed By: #### C BC ####[facility] Eqojxdqqqi994[address] [place], [place] [address]Dr. Tadeo Smyth EO # 0.2 103/ul Normal 0.0-0.7 [facility] Comment on above: Performed By: #### C BC ####[facility] Tyqhqobkiw42[address] [place], [place] [address]Dr. Tadeo Smyth Eosinophils/100 WBC (Bld) 3.4 % Normal 0.9-7.0 [facility] Comment on above: Performed By: #### C BC ####[facility] Cbhxmguleb994[address] [place], [place] [address]Dr. Tadeo Smyth Erythrocyte distribution width (RBC) [Ratio] 13.1 % Normal 11.0-15.0 [facility] Comment on above: Performed By: #### C BC ####[facility] Rylswdiewp27[address] [place], [place] [address]Dr. Tadeo Smyth Hematocrit (Bld) [Volume fraction] 42.4 % Normal 36.0-48.0 [facility] Comment on above: Performed By: #### C BC ####[facility] Uunktwbamc[address] [place], [place] [address]Dr. Tadeo Smyth Hemoglobin (Bld) [Mass/Vol] 13.7 g/dL Normal 12.0-16.0 [facility] Comment on above: Performed By: #### C BC ####[facility] Yvvdpoqpcs6681 [place] [id number]. Tadeo Smyth IG # 0.01 10e3/ul Normal 0.00-0.03 [facility] Comment on above: Performed By: #### C BC ####[facility] Nuusetwydd1126 [place] [address]Dr. Tadeo Smyth IG % 0.2 % Normal 0.0-0.5 [facility] Comment on above: Performed By: #### C BC ####[facility] Qaajvhqrrd9458 [place] [address]Dr. Tadeo Smyth LYMPH # 2.1 103/ul Normal 1.2-3.8 [facility] Comment on above: Performed By: #### C BC ####[facility] Lvqgaqdszz1701 [place] [address]Dr. Tadeo Smyth Lymphocytes/100 WBC (Bld) 41.2 % Normal 20.5-60.0 [facility] Comment on above: Performed By: #### C BC ####[facility] Ucxantintb8825 [place] [address]Dr. Tadeo Smyth MANUAL DIFF REQ NO Normal [facility] Comment on above: Performed By: #### C BC ####[facility] Keqvgspqoc4818 [place] [phone]. Tadeo Smyth MCH (RBC) [Entitic mass] 28.8 pg Normal 26.7-34.0 [facility] Comment on above: Performed By: #### C BC ####[facility] Isgsfjatnp[address] [place], [place] [address]Dr. Tadeo Smyth MCHC (RBC) [Mass/Vol] 32.3 g/dL Normal 29.9-35.2 [facility] Comment on above: Performed By: #### C BC ####[facility] Huosmycijv5873 [place] [address]Dr. Tadeo Smyth MCV (RBC) [Entitic vol] 89.3 fL Normal 81.0-99.0 [facility] Comment on above: Performed By: #### C BC ####[facility] Dfpyiuwpby7615 [place] [address]Dr. Tadeo Smyth MONO # 0.4 103/ul Normal 0.3-0.8 [facility] Comment on above: Performed By: #### C BC ####[facility] Grctknztzg6306 [place] [address]Dr. Tadeo Smyth Monocytes/100 WBC (Bld) 8.1 % Normal 1.7-12.0 [facility] Comment on above: Performed By: #### C BC ####[facility] Ndquldcstq8133 [place] [address]Dr. Tadeo Smyth NEUT # 2.4 103/ul Normal 1.4-6.5 [facility] Comment on above: Performed By: #### C BC ####[facility] Qdlqfedjnl5303 [place] [address]Dr. Tadeo Smyth Neutrophils/100 WBC (Bld) 46.5 % Normal 43.0-75.0 [facility] Comment on above: Performed By: #### C BC ####[facility] Aivbsrnbkw1770 [place] [address]Dr. Tadeo Smyth Platelet mean volume (Bld) [Entitic vol] 9.3 fL Critically low 9.5-13.5 [facility] Comment on above: Performed By: #### C BC ####[facility] Idvlyvoobv1710 [place] [address]Dr. Tadeo Smyth PLT 443 103/ul Normal 150-450 [facility] Comment on above: Performed By: #### C BC ####[facility] Zkymgjbtcv3963 [place] [address]Dr. Tadeo Smyth RBC 4.75 106/ul Normal 4.20-5.40 [facility] Comment on above: Performed By: #### C BC ####[facility] Qkqejatmij5066 [place] [phone]. Tadeo Smyth WBC 5.1 103/ul Normal 4.0-11.0 [facility] Comment on above: Performed By: #### C BC ####[facility] Zbadxydzuw1596 [place] [id number]. Tadeo Smyth FREE THYROXINE INDEX T7on FTI 2.91 Normal 1.30-4.50 [facility] Comment on above: Performed By: #### T 7, LIPID, TSH, CMP ####[facility] Dvrfonbimt8608 [place] [phone]. Tadeo Smyth T3U 31.0 % Normal 30.0-39.0 [facility] Comment on above: Performed By: #### T 7, LIPID, TSH, CMP ####[facility] Wegrxrseam6037 [place] [phone]. Tadeo Smyth T4 [Mass/Vol] 9.40 ug/dL Normal 4.80-13.90 [facility] Comment on above: Performed By: #### T 7, LIPID, TSH, CMP ####[facility] Mfjdcrcmao9357 [place] [address]Dr. Tadeo Smyth GLYCOHEMOGLOBIN A1Con 2021 ADA RECOMMENDATION SEE BELOW Normal [facility] Comment on above: Result Comment: ADA RECOMMENDED LIMIT 4.0 - 6.0 ADA THERAPEUTIC TARGET < 7.0 ACTION SUGGESTED > 7.0 Performed By: #### A 1C ####[facility] Vmorlbrhmx[address] [place], [place] [address]Dr. Tadeo Smyth Glucose [Mass/Vol] 120 mg/dL Normal [facility] Comment on above: Performed By: #### A 1C ####[facility] Uvkgbpvtjz87[address] [place], [place] [address]Dr. Tadeo Smyth HbA1c (Bld) [Mass fraction] 5.8 % Normal 4.5-6.2 [facility] Comment on above: Performed By: #### A 1C ####[facility] Fwhjtckjqx5[address] [place], [place] [address]Dr. Tadeo Smyth IRONon 07-08-2022 Iron [Mass/Vol] 59.0 ug/dL Normal 50.0-170.0 [facility] Comment on above: Performed By: #### I KEEGAN ####[facility] Uotkxdqnvd77[address] [place], [place] [address]Dr. Tadeo Smyth LIPID PROFILEon 07-08-2022 CHOL-HDL RATIO NORM SEE BELOW Normal [facility] Comment on above: Result Comment: 3.3 - 4.4 LOW RISK 4.4 - 7.1 AVERAGE RISK 7.1 - 11.0 MODERATE RISK >11.0 HIGH RISK Performed By: #### T 7, LIPID, TSH, CMP ####[facility] Xovrtbmdwq8226 [place], [place] [address]Cn. Tadeo Smyth Cholesterol [Mass/Vol] 227 mg/dL Critically high <=200 [facility] Comment on above: Performed By: #### T 7, LIPID, TSH, CMP ####[facility] Ypkljivblu3838 [place] [id number]. Margotnicole Haja Cholesterol in HDL [Mass/Vol] 67 mg/dL Critically high 40-60 [facility] Comment on above: Performed By: #### T 7, LIPID, TSH, CMP ####[facility] Oqxfrpngra4605 [place] [phone]. Tadeo Smyth Cholesterol in LDL [Mass/Vol] 139.0 mg/dL Normal [facility] Comment on above: Performed By: #### T 7, LIPID, TSH, CMP ####[facility] Vbvvmeywvi3950 [place] [id number]. Margotnicole Haja Cholesterol.total/Cho lesterol in HDL [Mass ratio] 3.4 {ratio} Normal [facility] Comment on above: Performed By: #### T 7, LIPID, TSH, CMP ####[facility] Wingfiocoz4624 [place] [id number]. Margotnicole Smyth HDL NORMAL > or = 60 mg/dl - LO W CARDIOVASCULAR RISK <40 mg/dl - HIGH CARDIOVASCULAR RISK Normal [facility] Comment on above: Performed By: #### T 7, LIPID, TSH, CMP ####[facility] Ueulexpaig1449 [place] [phone]. Tadeo Smyth LDL CALC NORMAL SEE BELOW Normal [facility] Comment on above: Result Comment: <100 mg/dl OPTIMAL 100 - 129 mg/dl NEAR OR ABOVE OPTIMAL 130 - 159 mg/dl BORDERLINE HIGH 160 - 189 mg/dl HIGH >190 mg/dl VERY HIGH Performed By: #### T 7, LIPID, TSH, CMP ####[facility] Dshsxfeuty4959 [place] [address]Dr. Tadeo Smyth Triglyceride [Mass/Vol] 105 mg/dL Normal <=150 [facility] Comment on above: Performed By: #### T 7, LIPID, TSH, CMP ####[facility] Shvmkpkpei9537 [place] [address]Dr. Tadeo Smyth VLDL CALC 21.0 mg/dL Normal [facility] Comment on above: Performed By: #### T 7, LIPID, TSH, CMP ####[facility] Dvzkqfaebb1544 [place] [address]Dr. Tadeo Smyth OCC BLD IMMUNO SCREENon OCCULT BLOOD Negative Normal NEGATIVE [facility] Comment on above: Performed By: #### O BSCRN ####[facility] Dwayejddmt7462 [place] [address]Dr. Tadeo Smyth PROF 14(COMP METB)on 022 Albumin [Mass/Vol] 3.7 g/dL Normal 3.4-5.0 [facility] Comment on above: Performed By: #### T 7, LIPID, TSH, CMP ####[facility] Vmabrmnhfl5871 [place] [address]Dr. Tadeo Smyth Albumin/Globulin [Mass ratio] 0.8 {ratio} Normal [facility] Comment on above: Performed By: #### T 7, LIPID, TSH, CMP ####[facility] Kkhovvsumy4959 [place] [address]Dr. Tadeo Smyth ALP [Catalytic activity/Vol] 141 U/L Critically high 46-116 [facility] Comment on above: Performed By: #### T 7, LIPID, TSH, CMP ####[facility] Bkfkbeammz4526 [place] [address]Dr. Tadeo Smyth ALT [Catalytic activity/Vol] 23 U/L Normal 14-59 [facility] Comment on above: Performed By: #### T 7, LIPID, TSH, CMP ####[facility] Aogpruobkb8761 [place] [address]Dr. Tadeo Smyth Anion gap [Moles/Vol] 9.8 mmol/L Normal [facility] Comment on above: Performed By: #### T 7, LIPID, TSH, CMP ####[facility] Anutqypwaf[address] [place], [place] [address]Dr. Tadeo Smyth AST [Catalytic activity/Vol] 13 U/L Critically low 15-37 [facility] Comment on above: Performed By: #### T 7, LIPID, TSH, CMP ####[facility] Rbvpiplygl186[address] [place], [place] [address]Dr. Tadeo Smyth Bilirubin [Mass/Vol] 0.4 mg/dL Normal 0.2-1.0 [facility] Comment on above: Performed By: #### T 7, LIPID, TSH, CMP ####[facility] Jgjdomdwdn[address] [place], [place] [address]Dr. Tadeo Smyth Calcium [Mass/Vol] 10.2 mg/dL Critically high 8.5-10.1 [facility] Comment on above: Performed By: #### T 7, LIPID, TSH, CMP ####[facility] Rwimtvgnfr[address] [place], [place] [address]Dr. Tadeo Smyth Chloride [Moles/Vol] 101 mmol/L Normal 98-107 [facility] Comment on above: Performed By: #### T 7, LIPID, TSH, CMP ####[facility] Scptaghagp024[address] [place], [place] [address]Dr. Tadeo Smyth CO2 [Moles/Vol] 32.8 mmol/L Critically high 21.0-32.0 [facility] Comment on above: Performed By: #### T 7, LIPID, TSH, CMP ####[facility] Kbfnjojfxk446[address] [place], [place] [address]Dr. Tadeo Smyth Creatinine [Mass/Vol] 0.92 mg/dL Normal 0.55-1.02 [facility] Comment on above: Performed By: #### T 7, LIPID, TSH, CMP ####[facility] Hgqdqeaphg69[address] [place], [place] [address]Dr. Tadeo Smyth EGFR-AF KOSOVAN >60 Normal >=60 [facility] Comment on above: Performed By: #### T 7, LIPID, TSH, CMP ####[facility] Uuyzlxavju8162 [place] [address]Dr. Tadeo Smyth EGFR-NON AF KOSOVAN >60 Normal >=60 [facility] Comment on above: Performed By: #### T 7, LIPID, TSH, CMP ####[facility] Qflgiibiqi3643 [place] [address]Dr. Tadeo Smyth Globulin (S) [Mass/Vol] 4.8 g/dL Normal [facility] Comment on above: Performed By: #### T 7, LIPID, TSH, CMP ####[facility] Zffcqnctub757[address] [place], [place] [address]Dr. Tadeo Smyth Glucose [Mass/Vol] 114 mg/dL Critically high 74-106 [facility] Comment on above: Performed By: #### T 7, LIPID, TSH, CMP ####[facility] Csdniomsdv0[address] [place], [place] [address]Dr. Tadeo Smyth Potassium [Moles/Vol] 3.6 mmol/L Normal 3.5-5.1 [facility] Comment on above: Performed By: #### T 7, LIPID, TSH, CMP ####[facility] Wnwmisyltl7[address] [place], [place] [address]Dr. Tadeo Smyth Protein [Mass/Vol] 8.5 g/dL Critically high 6.4-8.2 [facility] Comment on above: Performed By: #### T 7, LIPID, TSH, CMP ####[facility] Zbtfxhcjnz74[address] [place], [place] [address]Dr. Tadeo Smyth Sodium [Moles/Vol] 140 mmol/L Normal 136-145 [facility] Comment on above: Performed By: #### T 7, LIPID, TSH, CMP ####[facility] Sorzukctdd1618 [place] [address]Dr. Tadeo Smyth Urea nitrogen [Mass/Vol] 23.0 mg/dL Critically high 7.0-18.0 [facility] Comment on above: Performed By: #### T 7, LIPID, TSH, CMP ####[facility] Iidvrhckwh8055 [place] [address]Dr. Tadeo Smyth Urea nitrogen/Creatinine [Mass ratio] 25.0 mg/mg Normal [facility] Comment on above: Performed By: #### T 7, LIPID, TSH, CMP ####[facility] Zgwolhfhuo8587 [place] [address]Dr. Tadeo Smyth TSHon 07-08-2022 TSH 3.748 uIU/mL Critically high 0.358-3.740 [facility] Comment on above: Performed By: #### T 7, LIPID, TSH, CMP ####[facility] Hglbqyqesc[address] [place], [place] [address]Dr. Tadeo Smyth UA RANDOM W/MICROSCOPICon BACTERIA TRACE Abnormal NONE SEEN [facility] Comment on above: Performed By: #### U AMIC ####[facility] Zbiaimljkr[address] [place], [place] [address]Dr. Tadeo Smyth Bilirubin Ql (U) Negative Normal NEGATIVE [facility] Comment on above: Performed By: #### U AMIC ####[facility] Qbnzgsoxox32[address] [place], [place] [address]Dr. Tadeo Smyth CAST NONE SEEN Normal NONE SEEN [facility] Comment on above: Performed By: #### U AMIC ####[facility] Vuytruqgpc8[address] [place], [place] [address]Dr. Tadeo Smyth Clarity (U) CLEAR Normal CLEAR [facility] Comment on above: Performed By: #### U AMIC ####[facility] Xwntjjuldm[address] [place], [place] [address]Dr. Tadeo Smyth Color (U) YELLOW Normal YELLOW [facility] Comment on above: Performed By: #### U AMIC ####[facility] Dnaktfqszh[address] [place], [place] [address]Dr. Tadeo Smyth Crystals LM Nom (Urine sed) NONE SEEN Normal NONE SEEN [facility] Comment on above: Performed By: #### U AMIC ####[facility] Jubxgurnvl[address] [place], [place] [address]Dr. Tadeo Smyth Epithelial cells LM Ql (Urine sed) FEW Abnormal NONE SEEN /RARE [facility] Comment on above: Performed By: #### U AMIC ####[facility] Vzxewrenha4991 [place] [address]Dr. Tadeo Smyth Glucose Ql (U) Negative Normal NEGATIVE [facility] Comment on above: Performed By: #### U AMIC ####[facility] Focsrjnxpl5311 [place] [address]Dr. Tadeo Smyth Hemoglobin Ql (U) SMALL Abnormal NEGATIVE The [facility] Comment on above: Performed By: #### U AMIC ####[facility] Rcofrlevap[address] [place] [address]Dr. Tadeo Smyth Ketones Ql (U) TRACE Abnormal NEGATIVE The [facility] Comment on above: Performed By: #### U AMIC ####[facility] Uncrizwqna[address] [place], [place] [address]Dr. Tadeo Smyth LEUKOCYTES TRACE Abnormal NEGATIVE [facility] Comment on above: Performed By: #### U AMIC ####[facility] Cklsbvilqq6[address] [place], [place] [address]Dr. Tadeo Smyth MUCOUS NONE SEEN Normal NONE SEEN [facility] Comment on above: Performed By: #### U AMIC ####[facility] Wbxinjzkeg[address] [place], [place] [address]Dr. Tadeo Smyth Nitrite Ql (U) Negative Normal NEGATIVE The [facility] Comment on above: Performed By: #### U AMIC ####[facility] Zyopfhkshi[address] [place] [address]Dr. Tadeo Smyth pH (U) 6.5 [pH] Normal 5-9 [facility] Comment on above: Performed By: #### U AMIC ####[facility] Qckrekpxca8736[address] [place], [place] [address]Dr. Tadeo Smyth RBC 5-10 Abnormal 0-2 [facility] Comment on above: Performed By: #### U AMIC ####[facility] Jonnjcveye[address] [place] [address]Dr. Tadeo Smyth SPEC GRAVITY 1.020 Normal 1.005-<=1.0 25 [facility] Comment on above: Performed By: #### U AMIC ####[facility] Pwohbezwye83[address] [place], [place] [address]Lb. Tadeo Smyth UA PROTEIN 30 mg/dl Abnormal NEGATIVE/ TRACE [facility] Comment on above: Performed By: #### U AMIC ####[facility] Sayzfgweox9531 [place], [place] [address]Zu. Tadeo Smyth Urobilinogen Qn (U) 0.2 {Benito'U}/dL Normal 0.2 - 1. 0 [facility] Comment on above: Performed By: #### U AMIC ####[facility] Jukjnfgvtb[address] [place] [address]Dr. nicole Smyth WBC 2-5 Abnormal NONE SEEN [facility] Comment on above: Performed By: #### U AMIC ####[facility] Epkkoyqrdn47[address] [place] [id number]. Tadeo Smyth Covid-19 PCR (CVDTB)on 06-07 SARS-CoV-2 (COVID-19) RNA CHEN+probe Ql (Unsp spec) Not detected Normal NOT DETECTED [facility] Comment on above: Result Comment: When [...] for this test is supported by the [employer] Teacher of [employer] and Human Service's declaration that [...] be used). Performed By: #### C VDTBH ####[facility] Sgprboivex5039[address] [place], [place] [address]Dr. Tadeo Smyth CULTURE URINEon 06-09-2022 CULTURE URINE Normal The [facility] Comment on above: Performed By: #### U RCX ####[facility] Vquajvjxnu4575[address] [place], [place] [address]Dr. Tadeo Smyth GI PANEL (PCR)on 06-07-2022 Adenovirus F 40/41 Not detected Normal NOT DETECTED [facility] Comment on above: Performed By: #### G IPANEL ####[facility] Ttajdkptnc027[address] [place], [place] [address]Dr. Margotnicole Smyth Astrovirus Not detected Normal NOT DETECTED [facility] Comment on above: Performed By: #### G IPANEL ####[facility] Wrtmjcicjk0701[address] [place], [place] [address]Dr. Margotnicole Smyth C. Diff toxin A/B Not detected Normal NOT DETECTED [facility] Comment on above: Performed By: #### G IPANEL ####[facility] Yognffruoj859[address] [place], [place] [address]Dr. Margotnicole Smyth Campylobacter Not detected Normal NOT DETECTED [facility] Comment on above: Performed By: #### G IPANEL ####[facility] Zfvpvznljh064[address] [place], [place] [address]Dr. Tadeo Smyth Cryptosporidium Not detected Normal NOT DETECTED [facility] Comment on above: Performed By: #### G IPANEL ####[facility] Zhqtlxmhxx3138[address] [place], [place] [address]Dr. Margotnicole Haja Cyclos. Cayetanensis Not detected Normal NOT DETECTED [facility] Comment on above: Performed By: #### G IPANEL ####[facility] Velswsdtxz0424[address] [place], [place] [address]Dr. Tadeo Smyth E. Coli O157 Not Applicable Normal Not Applicable [facility] Comment on above: Performed By: #### G IPANEL ####[facility] Aotxjlmufg287[address] [place], [place] [address]Dr. Margotnicole Smyth E. histolytica Not detected Normal NOT DETECTED [facility] Comment on above: Performed By: #### G IPANEL ####[facility] Ndfimfijho9968[address] [place], [place] [address]Dr. Tadeo Smyth EAEC Not detected Normal NOT DETECTED [facility] Comment on above: Performed By: #### G IPANEL ####[facility] Ndjecjcaup7933[address] [place], [place] [address]Dr. Tadeo Smyth EIEC Not detected Normal NOT DETECTED [facility] Comment on above: Performed By: #### G IPANEL ####[facility] Fklbfegjpz7388[address] [place], [place] [address]Dr. Tadeo Smyth EPEC Not detected Normal NOT DETECTED [facility] Comment on above: Performed By: #### G IPANEL ####[facility] Stzhxmdukd2646[address] [place], [place] [address]Dr. Tadeo Smyth ETEC Not detected Normal NOT DETECTED [facility] Comment on above: Performed By: #### G IPANEL ####[facility] Bygotrybfa230[address] [place], [place] [address]Dr. Margotnicole Smyht G. Lamblia Not detected Normal NOT DETECTED [facility] Comment on above: Performed By: #### G IPANEL ####[facility] Lbdnamited7024[address] [place], [place] [address]Dr. Margotnicole Smyth GIPANEL CONTROLS PASSED Normal The [facility] Comment on above: Performed By: #### G IPANEL ####[facility] Zaklumcgma6854[address] [place], [place] [address]Dr. Tadeo MEZANL ARRON HEADER GI PANEL BACTERIA Normal [facility] Comment on above: Performed By: #### G IPANEL ####[facility] Qgbvthrlig3359[address] [place], [place] [address]Dr. Margotnicole Smyth GIPNLHD ECOLI GI PANEL DIARRHEAGEN IC E.COLI / SHIGELLA Normal [facility] Comment on above: Performed By: #### G IPANEL ####[facility] Uckrqhfztg3930[address] [place], [place] [address]Dr. Margotnicole Smyth GIPNLHD INFO SEE BELOW Normal [facility] Comment on above: Result Comment: EAEC - Enteroaggregative E. Coli EPEC- Enteropathogenic E. Coli ETEC- Enterotoxigenic E. Coli lt/st STEC- Shigella-like toxin-producing E. Coli stx1/stx2 EIEC- Shigella/Enteroinvasive E. Coli Performed By: #### G IPANEL ####[facility] Rpwfbvctdo6707[address] [place], [place] [address]Dr. Tadeo Smyth GIPNLHD PARASITES GI PANEL PARASITES Normal [facility] Comment on above: Performed By: #### G IPANEL ####[facility] Qcvqttzpnr747[address] [place], [place] [address]Dr. Tadeo Smyth GIPNLHD VIRUS GI PANEL VIRUSES Normal The [facility] Comment on above: Performed By: #### G IPANEL ####[facility] Cyucayibww0698[address] [place], [place] [address]Dr. Tadeo Smyth Norovirus GI/GII Not detected Normal NOT DETECTED [facility] Comment on above: Performed By: #### G IPANEL ####[facility] Lpbeimiqot1094[address] [place], [place] [address]Dr. Tadeo Smyth P. Shigelloides Not detected Normal NOT DETECTED [facility] Comment on above: Performed By: #### G IPANEL ####[facility] Azszyeulkp3776[address] [place], [place] [address]Dr. Tadeo Smyth Rotavirus A Not detected Normal NOT DETECTED [facility] Comment on above: Performed By: #### G IPANEL ####[facility] Tshbatcnrg4198[address] [place], [place] [address]Dr. Margotnicole Smyth Salmonella Not detected Normal NOT DETECTED [facility] Comment on above: Performed By: #### G IPANEL ####[facility] Yvfdyawoha9985[address] [place], [place] [address]Dr. Tadeo Smyth Sapovirus Not detected Normal NOT DETECTED [facility] Comment on above: Performed By: #### G IPANEL ####[facility] Rwairftfpo4477[address] [place], [place] [address]Dr. Margotnicole Smyth STEC Not detected Normal NOT DETECTED [facility] Comment on above: Performed By: #### G IPANEL ####[facility] Fpyttljwon358[address] [place], [place] [address]Dr. Tadeo Smyth Vibrio Not detected Normal NOT DETECTED [facility] Comment on above: Performed By: #### G IPANEL ####[facility] Gmbdgplpeq8680[address] [place], [place] [address]Dr. Tadeo Smyth Vibrio Cholera Not detected Normal NOT DETECTED [facility] Comment on above: Performed By: #### G IPANEL ####[facility] Yptlwosieu4056[address] [place], [place] [address]Dr. Tadeo Smyth Y. Enterocolitica Not detected Normal NOT DETECTED [facility] Comment on above: Performed By: #### G IPANEL ####[facility] Nxjdejksjt9878[address] [place], [place] [address]Dr. Tadeo Smyth AMYLASEon 06-06-2022 Amylase [Catalytic activity/Vol] 61 U/L Normal 25-115 [facility] Comment on above: Performed By: #### A MY LIPA ####[facility] Reiwukumaz4606[address] [place], [place] [address]Dr. Tadeo Smyth CBC AUTO DIFFon 06-06-2022 BASO # 0.0 103/ul Normal 0.0-0.1 [facility] Comment on above: Performed By: #### C BC ####[facility] Jgixucwlkg4767[address] [place], [place] [address]Dr. Tadeo Smyth Basophils/100 WBC (Bld) 0.5 % Normal 0.2-2.0 [facility] Comment on above: Performed By: #### C BC ####[facility] Looymrugrr1246[address] [place], [place] [address]Dr. Tadeo Smyth EO # 0.2 103/ul Normal 0.0-0.7 [facility] Comment on above: Performed By: #### C BC ####[facility] Qauqwvkmft8006[address] [place], [place] [address]Dr. Tadeo Smyth Eosinophils/100 WBC (Bld) 3.4 % Normal 0.9-7.0 [facility] Comment on above: Performed By: #### C BC ####[facility] Sdgmmephet498[address] [place], [place] [address]Dr. Tadeo Smyth Erythrocyte distribution width (RBC) [Ratio] 13.2 % Normal 11.0-15.0 [facility] Comment on above: Performed By: #### C BC ####[facility] Djdyqeekoe[address] [place] [address]Dr. Tadeo Smyth Hematocrit (Bld) [Volume fraction] 38.3 % Normal 36.0-48.0 [facility] Comment on above: Performed By: #### C BC ####[facility] Ixczcuwdst2987 [place] [address]Dr. Margotnicole Smyth Hemoglobin (Bld) [Mass/Vol] 12.0 g/dL Normal 12.0-16.0 [facility] Comment on above: Performed By: #### C BC ####[facility] Fczswbmdbo3667[address] [place], [place] [address]Dr. Margotnicole Smyth IG # 0.01 10e3/ul Normal 0.00-0.03 [facility] Comment on above: Performed By: #### C BC ####[facility] Lnzolsktsq2529[address] [place], [place] [address]Dr. Tadeo Smyth IG % 0.2 % Normal 0.0-0.5 [facility] Comment on above: Performed By: #### C BC ####[facility] Vqktodaeqj4950[address] [place], [place] [address]Dr. Margotnicole Smyth LYMPH # 1.7 103/ul Normal 1.2-3.8 [facility] Comment on above: Performed By: #### C BC ####[facility] Cdextvwfrt1244[address] [place], [place] [address]Dr. Tadeo Smyth Lymphocytes/100 WBC (Bld) 28.1 % Normal 20.5-60.0 [facility] Comment on above: Performed By: #### C BC ####[facility] Ejgqevhmua1769[address] [place], [place] [address]Dr. Tadeo Smyth MANUAL DIFF REQ NO Normal [facility] Comment on above: Performed By: #### C BC ####[facility] Psnajbpgcl6334[address] [place], [place] [address]Dr. Tadeo Smyth MCH (RBC) [Entitic mass] 28.5 pg Normal 26.7-34.0 [facility] Comment on above: Performed By: #### C BC ####[facility] Kfpwzgvceh7096 [place] [id number]. Margotnicole Smyth MCHC (RBC) [Mass/Vol] 31.3 g/dL Normal 29.9-35.2 [facility] Comment on above: Performed By: #### C BC ####[facility] Ukqavmlylh[address] [place] [id number]. Tadeo Smyth MCV (RBC) [Entitic vol] 91.0 fL Normal 81.0-99.0 [facility] Comment on above: Performed By: #### C BC ####[facility] Arwgooztnj825[address] [place], [place] [address]Dr. Tadeo Smyth MONO # 0.4 103/ul Normal 0.3-0.8 [facility] Comment on above: Performed By: #### C BC ####[facility] Huiyognoda697[address] [place], [place] [address]Dr. Tadeo Smyth Monocytes/100 WBC (Bld) 7.1 % Normal 1.7-12.0 [facility] Comment on above: Performed By: #### C BC ####[facility] Hkngytgihy8430[address] [place], [place] [address]Dr. Tadeo Smyth NEUT # 3.6 103/ul Normal 1.4-6.5 [facility] Comment on above: Performed By: #### C BC ####[facility] Ewuiidpwiy1288[address] [place], [place] [address]Dr. Tadeo Smyth Neutrophils/100 WBC (Bld) 60.7 % Normal 43.0-75.0 [facility] Comment on above: Performed By: #### C BC ####[facility] Qmkxozoysq744[address] [place], [place] [address]Dr. Tadeo Smyth Platelet mean volume (Bld) [Entitic vol] 8.9 fL Critically low 9.5-13.5 [facility] Comment on above: Performed By: #### C BC ####[facility] Slsmydnvsm258[address] [place], [place] [address]Dr. Tadeo Smyth PLT 374 103/ul Normal 150-450 [facility] Comment on above: Performed By: #### C BC ####[facility] Obfwzswrrs01[address] [place] [address]Dr. Tadeo Smyth RBC 4.21 106/ul Normal 4.20-5.40 [facility] Comment on above: Performed By: #### C BC ####[facility] Ocdljzimtx5646 [place] [address]Dr. Tadeo Smyth WBC 5.9 103/ul Normal 4.0-11.0 [facility] Comment on above: Performed By: #### C BC ####[facility] Tzddbsvstr[address] [place] [address]Dr. Tadeo Haja CT ABD/PELV W CONon 06-06-[address] ABD/PELV W CON Normal [facility] ER URINE PROFILEon 2 Bilirubin Ql (U) Negative Normal NEGATIVE [facility] Comment on above: Performed By: #### SANDRO MERCHANTRO ####[facility] Ytpulznuvg0149[address] [place], [place] [address]Dr. Tadeo Smyth Clarity (U) CLOUDY Abnormal CLEAR [facility] Comment on above: Performed By: #### SANDRO MERCHANTRO ####[facility] Xnwnqznwdv6190[address] [place], [place] [address]Dr. Tadeo Smyth Color (U) LT. YELLOW Normal YELLOW [facility] Comment on above: Performed By: #### Matthew FRANCISCO UMICRO ####[facility] Voptpevwqd7459[address] [place], [place] [address]Dr. Tadeo Smyth ERUAHD A micrscopic examina tion will be performed if indicated. Normal [facility] Comment on above: Performed By: #### RANDI MERCHANTICRO ####[facility] Xihquwpqbi9404[address] [place], [place] [address]Dr. Tadeo Smyth Glucose Ql (U) Negative Normal NEGATIVE [facility] Comment on above: Performed By: #### RANDI MERCHANTICRO ####[facility] Mhriuxsfxx372[address] [place], [place] [address]Dr. Tadeo Smyth Hemoglobin Ql (U) TRACE-INTACT Abnormal NEGATIVE [facility] Comment on above: Performed By: #### SANDRO MERCHANTRO ####[facility] Cnrkyppaxh8[address] [place] [address]Dr. Tadeo Smyth Ketones Ql (U) Negative Normal NEGATIVE [facility] Comment on above: Performed By: #### SANDRO MERCHANTRO ####[facility] Iafccuftsv7054 [place] [address]Dr. Tadeo Smyth LEUKOCYTES SMALL Abnormal NEGATIVE [facility] Comment on above: Performed By: #### RANDI MERCHANTICRO ####[facility] Jxnokvfhja758[address] [place], [place] [address]Dr. Tadeo Smyth Nitrite Ql (U) Negative Normal NEGATIVE [facility] Comment on above: Performed By: #### SANDRO MERCHANTRO ####[facility] Mwxigyrvyc4746[address] [place], [place] [address]Dr. Tadeo Smyth pH (U) 6.0 [pH] Normal 5-9 [facility] Comment on above: Performed By: #### SANDRO MERCHANTRO ####[facility] Btccrzatbc4[address] [place], [place] [address]Dr. Tadeo Smyth SPEC GRAVITY 1.020 Normal 1.005-<=1.0 25 [facility] Comment on above: Performed By: #### SANDRO MERCHANTRO ####[facility] Qssdicevgx[address] [place], [place] [address]Dr. Tadeo Smyth UA PROTEIN Negative Normal NEGATIVE/ TRACE [facility] Comment on above: Performed By: #### SANDRO MERCHANTRO ####[facility] Fnjsbgjqcm212[address] [place], [place] [address]Dr. Tadeo Smyth UR MICRO IND INDICATED Normal [facility] Comment on above: Performed By: #### SANDRO MERCHANTRO ####[facility] Wetwiktelr2227[address] [place], [place] [address]Dr. Tadeo Smyth Urobilinogen Qn (U) 0.2 {Benito'U}/dL Normal 0.2 - 1. 0 [facility] Comment on above: Performed By: #### KAROL MERCHNAT ####[facility] Vwqceaprxf01[address] [place] [id number]. Tadeo Smyth LIPASEon 06-06-2022 Lipase [Catalytic activity/Vol] 100.0 U/L Normal 73.0-393.0 [facility] Comment on above: Performed By: #### A MY LIPA ####[facility] Mcudaagcve[address] [place] [address]Dr. Tadeo Smyth PROF 14(COMP METB)on 022 Albumin [Mass/Vol] 3.3 g/dL Critically low 3.4-5.0 [facility] Comment on above: Performed By: #### C MP ####[facility] Gqmqydylzc5[address] [place] [address]Dr. Tadeo Smyth Albumin/Globulin [Mass ratio] 0.9 {ratio} Normal [facility] Comment on above: Performed By: #### C MP ####[facility] Lhtpnrrxcg9485 [place] [address]Dr. Tadeo Smyth ALP [Catalytic activity/Vol] 140 U/L Critically high 46-116 [facility] Comment on above: Performed By: #### C MP ####[facility] Cmughilkyq028[address] [place] [address]Dr. Tadeo Smyth ALT [Catalytic activity/Vol] 23 U/L Normal 14-59 [facility] Comment on above: Performed By: #### C MP ####[facility] Evvzmipbbl77[address] [place] [address]Dr. Tadeo Smyth Anion gap [Moles/Vol] 11.6 mmol/L Normal [facility] Comment on above: Performed By: #### C MP ####[facility] Eqbxqrboau2289 [place] [address]Dr. Tadeo Smyth AST [Catalytic activity/Vol] 18 U/L Normal 15-37 [facility] Comment on above: Performed By: #### C MP ####[facility] Rdulmhovcw5721 [place] [address]Dr. Tadeo Smyth Bilirubin [Mass/Vol] 0.2 mg/dL Normal 0.2-1.0 [facility] Comment on above: Performed By: #### C MP ####[facility] Zcrtggfvbw5[address] [place] [address]Dr. Tadeo Smyth Calcium [Mass/Vol] 8.8 mg/dL Normal 8.5-10.1 [facility] Comment on above: Performed By: #### C MP ####[facility] Fvpslhalvi9759 [place] [address]Dr. Tadeo Smyth Chloride [Moles/Vol] 109 mmol/L Critically high 98-107 [facility] Comment on above: Performed By: #### C MP ####[facility] Jsksyttnyx4792 [place] [address]Dr. Tadeo Smyth CO2 [Moles/Vol] 26.3 mmol/L Normal 21.0-32.0 [facility] Comment on above: Performed By: #### C MP ####[facility] Pwhiysczks13[address] [place], [place] [address]Dr. Tadeo Smyth Creatinine [Mass/Vol] 0.81 mg/dL Normal 0.55-1.02 [facility] Comment on above: Performed By: #### C MP ####[facility] Pvjzmaepuu7974[address] [place], [place] [address]Dr. Tadeo Smyth EGFR-AF KOSOVAN >60 Normal >=60 [facility] Comment on above: Performed By: #### C MP ####[facility] Vdkitwtjbw26[address] [place] [address]Dr. Tadeo Smyth EGFR-NON AF KOSOVAN >60 Normal >=60 [facility] Comment on above: Performed By: #### C MP ####[facility] Vdrpuvfidg9738 [place] [address]Dr. Tadeo Smyth Globulin (S) [Mass/Vol] 3.7 g/dL Normal [facility] Comment on above: Performed By: #### C MP ####[facility] Npjqclawds5204 [place] [address]Dr. Tadeo Smyth Glucose [Mass/Vol] 90 mg/dL Normal 74-106 [facility] Comment on above: Performed By: #### C MP ####[facility] Jcfafpuxwy9828 [place] [address]Dr. Tadeo Smyth Potassium [Moles/Vol] 3.9 mmol/L Normal 3.5-5.1 [facility] Comment on above: Performed By: #### C MP ####[facility] Kzikmwfznk667[address] [place], [place] [address]Dr. Tadeo Smyth Protein [Mass/Vol] 7.0 g/dL Normal 6.4-8.2 [facility] Comment on above: Performed By: #### C MP ####[facility] Ivqiwkkouf6913[address] [place], [place] [address]Dr. Tadeo Smyth Sodium [Moles/Vol] 143 mmol/L Normal 136-145 [facility] Comment on above: Performed By: #### C MP ####[facility] Luieeigxii6475[address] [place], [place] [address]Dr. Tadeo Smyth Urea nitrogen [Mass/Vol] 12.0 mg/dL Normal 7.0-18.0 [facility] Comment on above: Performed By: #### C MP ####[facility] Judkavseje9298[address] [place], [place] [address]Dr. Tadeo Haja Urea nitrogen/Creatinine [Mass ratio] 14.8 mg/mg Normal [facility] Comment on above: Performed By: #### C MP ####[facility] Lsdfkiotus4168[address] [place], [place] [address]Dr. Tadeo Smyth URINE MICROSCOPIC ONLYon BACTERIA LARGE Abnormal NONE SEEN [facility] Comment on above: Performed By: #### SANDRO MERCHANTRO ####[facility] Huannnopsv9460[address] [place], [place] [address]Dr. Tadeo Smyth Bacteria identified Cx Nom (U) INDICATED Normal [facility] Comment on above: Performed By: #### KAROL MERCHANT ####[facility] Qdemwfpgpc0906[address] [place], [place] [address]Dr. Tadeo Smyth CAST NONE SEEN Normal NONE SEEN [facility] Comment on above: Performed By: #### KAROL MERCHANT ####[facility] Cnueocidnc7294 [place] [address]Dr. Tadeo Smyth Crystals LM Nom (Urine sed) NONE SEEN Normal NONE SEEN [facility] Comment on above: Performed By: #### KAROL MERCHANT ####[facility] Iclqrmnezw9722 [place] [address]Dr. Tadeo Smyth Epithelial cells LM Ql (Urine sed) RARE Normal NONE SEEN /RARE [facility] Comment on above: Performed By: #### KAROL MERCHANT ####[facility] Zfbnqfermx4389[address] [place], [place] [address]Dr. Tadeo Smyth MUCOUS TRACE Abnormal NONE SEEN [facility] Comment on above: Performed By: #### KAROL MERCHANT ####[facility] Bsbylghjwq0839[address] [place], [place] [address]Dr. Tadeo Smyth RBC 0-2 Normal 0-2 [facility] Comment on above: Performed By: #### KAROL MERCHANT ####[facility] Flpfbafelq3015[address] [place], [place] [address]Dr. Tadeo Smyth WBC 2-5 Abnormal NONE SEEN [facility] Comment on above: Performed By: #### KAROL MERCHANT ####[facility] Vpddijbzyk50[address] [place], [place] [address]Dr. Tadeo Smyth AMYLASEon 06-04-2022 Amylase [Catalytic activity/Vol] 61 U/L Normal 25-115 [facility] Comment on above: Performed By: #### A MY, CMP, LIPA ####[facility] Fmyljeglmy03[address] [place], [place] [address]Dr. Tadeo Smyth CBC AUTO DIFFon 06-04-2022 BASO # 0.0 103/ul Normal 0.0-0.1 [facility] Comment on above: Performed By: #### C BC ####[facility] Gxbjumaail9060[address] [place], [place] [address]Dr. Tadeo Smyth Basophils/100 WBC (Bld) 0.5 % Normal 0.2-2.0 [facility] Comment on above: Performed By: #### C BC ####[facility] Nzhuqqjuaq34[address] [place] [address]Dr. Tadeo Smyth EO # 0.3 103/ul Normal 0.0-0.7 [facility] Comment on above: Performed By: #### C BC ####[facility] Nptqgpvjhq[address] [place], [place] [address]Dr. Tadeo Smyth Eosinophils/100 WBC (Bld) 4.7 % Normal 0.9-7.0 [facility] Comment on above: Performed By: #### C BC ####[facility] Ykvwsrzimh8[address] [place], [place] [address]Dr. Tadeo Smyth Erythrocyte distribution width (RBC) [Ratio] 13.2 % Normal 11.0-15.0 [facility] Comment on above: Performed By: #### C BC ####[facility] Hrrfxhfqce8[address] [place], [place] [address]Dr. Tadeo Smyth Hematocrit (Bld) [Volume fraction] 36.9 % Normal 36.0-48.0 [facility] Comment on above: Performed By: #### C BC ####[facility] Wjlotrbkix86[address] [place], [place] [address]Dr. Tadeo Smyth Hemoglobin (Bld) [Mass/Vol] 11.9 g/dL Critically low 12.0-16.0 [facility] Comment on above: Performed By: #### C BC ####[facility] Pllztzfcsq38[address] [place], [place] [address]Dr. Tadeo Smyth IG # 0.01 10e3/ul Normal 0.00-0.03 [facility] Comment on above: Performed By: #### C BC ####[facility] Snuyowfsln[address] [place], [place] [address]Dr. Tadeo Smyth IG % 0.2 % Normal 0.0-0.5 [facility] Comment on above: Performed By: #### C BC ####[facility] Icpglegarp01[address] [place], [place] [address]Dr. Tadeo Smyth LYMPH # 2.3 103/ul Normal 1.2-3.8 [facility] Comment on above: Performed By: #### C BC ####[facility] Bxxrqvmsae7[address] [place] [address]Dr. Tadeo Haja Lymphocytes/100 WBC (Bld) 37.3 % Normal 20.5-60.0 [facility] Comment on above: Performed By: #### C BC ####[facility] Hbfzbigtuz2[address] [place] [address]Dr. Margotnicole Smyth MANUAL DIFF REQ NO Normal [facility] Comment on above: Performed By: #### C BC ####[facility] Ixcugmionv5591 [place] [address]Dr. Tadeo Haja MCH (RBC) [Entitic mass] 29.0 pg Normal 26.7-34.0 [facility] Comment on above: Performed By: #### C BC ####[facility] Gaqbmnexdm6525[address] [place], [place] [address]Dr. Tadeo Haja MCHC (RBC) [Mass/Vol] 32.2 g/dL Normal 29.9-35.2 [facility] Comment on above: Performed By: #### C BC ####[facility] Rgyoqqojrd3694[address] [place], [place] [address]Dr. Margotnicole Smyth MCV (RBC) [Entitic vol] 90.0 fL Normal 81.0-99.0 [facility] Comment on above: Performed By: #### C BC ####[facility] Nqqexulbgr1594[address] [place], [place] [address]Dr. Tadeo Smyth MONO # 0.4 103/ul Normal 0.3-0.8 [facility] Comment on above: Performed By: #### C BC ####[facility] Oldijahqal24[address] [place], [place] [address]Dr. Margotnicole Smyth Monocytes/100 WBC (Bld) 6.8 % Normal 1.7-12.0 [facility] Comment on above: Performed By: #### C BC ####[facility] Dabfdmdaxa5[address] [place], [place] [address]Dr. Tadeo Smyth NEUT # 3.2 103/ul Normal 1.4-6.5 [facility] Comment on above: Performed By: #### C BC ####[facility] Bjvfnhrkdl0521 [place] [address]Dr. Tadeo Smyth Neutrophils/100 WBC (Bld) 50.5 % Normal 43.0-75.0 [facility] Comment on above: Performed By: #### C BC ####[facility] Exyepnbqin4248 [place] [address]Dr. Tadeo Smyth Platelet mean volume (Bld) [Entitic vol] 8.9 fL Critically low 9.5-13.5 [facility] Comment on above: Performed By: #### C BC ####[facility] Enmjhlgvik39[address] [place], [place] [address]Dr. Tadeo Smyth PLT 387 103/ul Normal 150-450 [facility] Comment on above: Performed By: #### C BC ####[facility] Uyqwwntvuq7[address] [place], [place] [address]Dr. Tadeo Smyth RBC 4.10 106/ul Critically low 4.20-5.40 [facility] Comment on above: Performed By: #### C BC ####[facility] Hkjnrfeoxu56[address] [place], [place] [address]Dr. Tadeo Smyth WBC 6.2 103/ul Normal 4.0-11.0 [facility] Comment on above: Performed By: #### C BC ####[facility] Jmtsbucesf4065[address] [place], [place] [address]Dr. Tadeo Smyth CT ABD/PELV W CONon 06-04-[address] ABD/PELV W CON Normal The [facility] ER URINE PROFILEon 2 Bilirubin Ql (U) Negative Normal NEGATIVE [facility] Comment on above: Performed By: #### SANDRO MERCHANTRO ####[facility] Boaolohwxx[address] [place], [place] [address]Dr. Margotnicole Smyth Clarity (U) CLEAR Normal CLEAR [facility] Comment on above: Performed By: #### SANDRO MERCHANTRO ####[facility] Zjxhbohcwx0466 [place] [id number]. Margotnicole Smyth Color (U) LT. YELLOW Normal YELLOW [facility] Comment on above: Performed By: #### SANDRO MERCHANTRO ####[facility] Ncbjvjqwpl1431 [place] [address]Dr. Tadeo ENG A micrscopic examina tion will be performed if indicated. Normal [facility] Comment on above: Performed By: #### KAROL MERCHANT ####[facility] Illmsitvza7587 [place] [address]Dr. Tadeo Smyth Glucose Ql (U) Negative Normal NEGATIVE [facility] Comment on above: Performed By: #### SANDRO MERCHANTRO ####[facility] Uxcoarzppf5765 [place] [address]Dr. Tadeo Smyth Hemoglobin Ql (U) TRACE-INTACT Abnormal NEGATIVE [facility] Comment on above: Performed By: #### SANDRO MERCHANTRO ####[facility] Scihbsclcc7056 [place] [address]Dr. Tadeo Smyth Ketones Ql (U) Negative Normal NEGATIVE [facility] Comment on above: Performed By: #### KAROL MERCHANT ####[facility] Dasmmujyxp8320[address] [place], [place] [address]Dr. Tadeo Symth LEUKOCYTES Negative Normal NEGATIVE [facility] Comment on above: Performed By: #### KAROL MERCHANT ####[facility] Simedjaavf95[address] [place], [place] [address]Dr. Tadeo Smyth Nitrite Ql (U) Negative Normal NEGATIVE [facility] Comment on above: Performed By: #### KAROL MERCHANT ####[facility] Leztdycfjj3221 [place] [address]Dr. Tadeo Smyth pH (U) 6.5 [pH] Normal 5-9 [facility] Comment on above: Performed By: #### KAROL MERCHANT ####[facility] Sujsiphkwl6789[address] [place], [place] [address]Dr. Tadeo Smyth SPEC GRAVITY 1.015 Normal 1.005-<=1.0 25 [facility] Comment on above: Performed By: #### KAROL MERCHANT ####[facility] Zpttjhwqyl89[address] [place], [place] [address]Dr. Tadeo Smyth UA PROTEIN Negative Normal NEGATIVE/ TRACE [facility] Comment on above: Performed By: #### KAROL MERCHANT ####[facility] Mpofdluwig7345 [place] [address]Dr. Tadeo Smyth UR MICRO IND INDICATED Normal [facility] Comment on above: Performed By: #### KAROL MERCHANT ####[facility] Hxlamcvboy5577 [place] [address]Dr. Tadeo Smyth Urobilinogen Qn (U) 0.2 {Benito'U}/dL Normal 0.2 - 1. 0 [facility] Comment on above: Performed By: #### KAROL MERCHANT ####[facility] Bcsogkjynv59[address] [place] [address]Dr. Tadeo Smyth LIPASEon 06-04-2022 Lipase [Catalytic activity/Vol] 81.0 U/L Normal 73.0-393.0 [facility] Comment on above: Performed By: #### A MY, CMP, LIPA ####[facility] Maoptbqxvx1484 [place] [address]Dr. Tadeo Smyth PROF 14(COMP METB)on 022 Albumin [Mass/Vol] 3.6 g/dL Normal 3.4-5.0 [facility] Comment on above: Performed By: #### A MY, CMP, LIPA ####[facility] Fcyhrgzzga5849 [place] [address]Dr. Tadeo Smyth Albumin/Globulin [Mass ratio] 1.0 {ratio} Normal [facility] Comment on above: Performed By: #### A MY, CMP, LIPA ####[facility] Dmlfwjowod1570 [place] [address]Dr. Tadeo Smyth ALP [Catalytic activity/Vol] 150 U/L Critically high 46-116 [facility] Comment on above: Performed By: #### A MY, CMP, LIPA ####[facility] Nsdpxznmbs2095 [place] [address]Dr. Tadeo Smyth ALT [Catalytic activity/Vol] 23 U/L Normal 14-59 [facility] Comment on above: Performed By: #### A MY, CMP, LIPA ####[facility] Rlcxcmefiy0059 [place] [address]Dr. Tadeo Smyth Anion gap [Moles/Vol] 13.2 mmol/L Normal [facility] Comment on above: Performed By: #### A MY, CMP, LIPA ####[facility] Wfvzpmofys2362 [place] [address]Dr. Tadeo Smyth AST [Catalytic activity/Vol] 12 U/L Critically low 15-37 [facility] Comment on above: Performed By: #### A MY, CMP, LIPA ####[facility] Pcqtvpisrb[address] [place], [place] [address]Dr. Tadeo Smyth Bilirubin [Mass/Vol] 0.1 mg/dL Critically low 0.2-1.0 [facility] Comment on above: Performed By: #### A MY, CMP, LIPA ####[facility] Lrdhqeacjc0[address] [place], [place] [address]Dr. Tadeo Smyth Calcium [Mass/Vol] 9.0 mg/dL Normal 8.5-10.1 [facility] Comment on above: Performed By: #### A MY, CMP, LIPA ####[facility] Ehoaypjdna8881 [place] [address]Dr. Tadeo Smyth Chloride [Moles/Vol] 104 mmol/L Normal 98-107 [facility] Comment on above: Performed By: #### A MY, CMP, LIPA ####[facility] Tcxvbhjlto5314[address] [place], [place] [address]Dr. Tadeo Smyth CO2 [Moles/Vol] 26.6 mmol/L Normal 21.0-32.0 [facility] Comment on above: Performed By: #### A MY, CMP, LIPA ####[facility] Ixmlcnanit5092 [place] [address]Dr. Tadeo Smyth Creatinine [Mass/Vol] 0.97 mg/dL Normal 0.55-1.02 [facility] Comment on above: Performed By: #### A MY, CMP, LIPA ####[facility] Staumnfukm0218 [place] [id number]. Tadeo Smyth EGFR-AF KOSOVAN >60 Normal >=60 [facility] Comment on above: Performed By: #### A MY, CMP, LIPA ####[facility] Ymugtitymm6155 [place] [phone]. Tadeo Smyth EGFR-NON AF KOSOVAN 60 mL/min/1.73m2 Normal >=60 [facility] Comment on above: Performed By: #### A MY, CMP, LIPA ####[facility] Qmkvjyytrf2526 [place] [phone]. Tadeo Smyth Globulin (S) [Mass/Vol] 3.7 g/dL Normal [facility] Comment on above: Performed By: #### A MY, CMP, LIPA ####[facility] Hxltooqnln6140 [place] [address]Dr. Tadeo Smyth Glucose [Mass/Vol] 109 mg/dL Critically high 74-106 [facility] Comment on above: Performed By: #### A MY, CMP, LIPA ####[facility] Iukmmzivav1264 [place] [address]Dr. Tadeo Smyth Potassium [Moles/Vol] 3.8 mmol/L Normal 3.5-5.1 [facility] Comment on above: Performed By: #### A MY, CMP, LIPA ####[facility] Mmwpinkqam1858 [place] [address]Dr. Tadeo Smyth Protein [Mass/Vol] 7.3 g/dL Normal 6.4-8.2 [facility] Comment on above: Performed By: #### A MY, CMP, LIPA ####[facility] Luqolykbtf2282 [place] [address]Dr. Tadeo Smyth Sodium [Moles/Vol] 140 mmol/L Normal 136-145 [facility] Comment on above: Performed By: #### A MY, CMP, LIPA ####[facility] Gdqvfeafdk5080 [place] [address]Dr. Tadeo Smyth Urea nitrogen [Mass/Vol] 21.0 mg/dL Critically high 7.0-18.0 [facility] Comment on above: Performed By: #### A MY, CMP, LIPA ####[facility] Vjepbztyiq98[address] [place], [place] [address]Dr. Tadeo Smyth Urea nitrogen/Creatinine [Mass ratio] 21.6 mg/mg Normal [facility] Comment on above: Performed By: #### A MY, CMP, LIPA ####[facility] Mwwnplietp5[address] [place], [place] [address]Dr. Tadeo Smyth URINE MICROSCOPIC ONLYon BACTERIA NONE SEEN Normal NONE SEEN [facility] Comment on above: Performed By: #### Matthew FRANCISCO UMICRO ####[facility] Agwnxiwvgs6739[address] [place], [place] [address]Dr. Tadeo Smyth Bacteria identified Cx Nom (U) NOT INDICATED Normal [facility] Comment on above: Performed By: #### Matthew FRANCISCO UMICRO ####[facility] Mpkjbjcbwt5580[address] [place], [place] [address]Dr. Tadeo Smyth CAST NONE SEEN Normal NONE SEEN [facility] Comment on above: Performed By: #### Matthew FRANCISCO UMICRO ####[facility] Clvbxstbwl7310[address] [place], [place] [address]Dr. Tadeo Smyth Crystals LM Nom (Urine sed) NONE SEEN Normal NONE SEEN [facility] Comment on above: Performed By: #### E RUYovanny UMICRO ####[facility] Vdtyraksrb[address] [place], [place] [address]Dr. Tadeo Smyth Epithelial cells LM Ql (Urine sed) FEW Abnormal NONE SEEN /RARE [facility] Comment on above: Performed By: #### E RUYovanny UMICRO ####[facility] Lcqsimavlb207[address] [place], [place] [address]Dr. Tadeo Smyth MUCOUS NONE SEEN Normal NONE SEEN [facility] Comment on above: Performed By: #### E RUR UMICRO ####[facility] Ghlbratusn[address]35[address] [place], [place] [address]Dr. Tadeo Smyth RBC 0-2 Normal 0-2 [facility] Comment on above: Performed By: #### E RUR, UMICRO ####[facility] Cjopeivvgz8935 [place] [address]Dr. Tadeo Smyth WBC NONE SEEN Normal NONE SEEN [facility] Comment on above: Performed By: #### E KAROL FRANCISCO ####[facility] Fpedgijuwl5392 [place] [phone]. Margotnicole Smyth MICRO OTHER TESTSOrdered By: Guillermo Rocha on 04-29-2022 Fecal WBC Lactoferrin Negative (04/29/22 8:00 AM) Normal Negative [facility] Man Sero CULTURE URINEon 03-31-2022 CULTURE URINE Normal [facility] Comment on above: Performed By: #### U RCX ####[facility] Qngbxzetev4844[address] [place], [place] [address]Dr. Tadeo Haja CBC AUTO DIFFon 03-30-2022 BASO # 0.0 103/ul Normal 0.0-0.1 [facility] Comment on above: Performed By: #### C BC ####[facility] Ckiplvgkgj0313[address] [place], [place] [address]Dr. Margotnicole Smyth Basophils/100 WBC (Bld) 0.4 % Normal 0.2-2.0 [facility] Comment on above: Performed By: #### C BC ####[facility] Tltzgtkdqv0314[address] [place], [place] [address]Dr. Margotnicole Smyth EO # 0.3 103/ul Normal 0.0-0.7 [facility] Comment on above: Performed By: #### C BC ####[facility] Kikeokvviy[address] [place], [place] [address]Dr. Tadeo Smyth Eosinophils/100 WBC (Bld) 5.1 % Normal 0.9-7.0 [facility] Comment on above: Performed By: #### C BC ####[facility] Esaogxczvd2485[address] [place], [place] [address]Dr. Margotnicole Smyth Erythrocyte distribution width (RBC) [Ratio] 12.8 % Normal 11.0-15.0 [facility] Comment on above: Performed By: #### C BC ####[facility] Wmdcgkehuu9616 [place] [address]Dr. Tadeo Smyth Hematocrit (Bld) [Volume fraction] 36.4 % Normal 36.0-48.0 [facility] Comment on above: Performed By: #### C BC ####[facility] Vfaxvtkkut0707 [place] [address]Dr. Tadeo Haja Hemoglobin (Bld) [Mass/Vol] 12.0 g/dL Normal 12.0-16.0 [facility] Comment on above: Performed By: #### C BC ####[facility] Roohtytrrs1744 [place] [address]Dr. Tadeo Smyth IG # 0.02 10e3/ul Normal 0.00-0.03 [facility] Comment on above: Performed By: #### C BC ####[facility] Sjomikowwz2114[address] [place], [place] [address]Dr. Tadeo Smyth IG % 0.4 % Normal 0.0-0.5 [facility] Comment on above: Performed By: #### C BC ####[facility] Ooovwzdcnj4147[address] [place], [place] [address]Dr. Margotnicole Smyth LYMPH # 1.4 103/ul Normal 1.2-3.8 [facility] Comment on above: Performed By: #### C BC ####[facility] Secddzsqox7408 [place] [address]DrNeo Smyth Lymphocytes/100 WBC (Bld) 25.5 % Normal 20.5-60.0 [facility] Comment on above: Performed By: #### C BC ####[facility] Vgpddjvoba1574 [place] [address]DrNeo Margotnicole Smyth MANUAL DIFF REQ NO Normal [facility] Comment on above: Performed By: #### C BC ####[facility] Qjjfjygthf5081 [place] [phone] Smyth MCH (RBC) [Entitic mass] 29.1 pg Normal 26.7-34.0 [facility] Comment on above: Performed By: #### C BC ####[facility] Ygzoarumxl156[address] [place], [place] [address]Dr. Tadeo Haja MCHC (RBC) [Mass/Vol] 33.0 g/dL Normal 29.9-35.2 [facility] Comment on above: Performed By: #### C BC ####[facility] Uhpdzoahep3209 [place] [address]Dr. Tadeo Haja MCV (RBC) [Entitic vol] 88.3 fL Normal 81.0-99.0 [facility] Comment on above: Performed By: #### C BC ####[facility] Sfsypgbhui5548 [place] [address]Dr. Margotnicole Haja MONO # 0.4 103/ul Normal 0.3-0.8 [facility] Comment on above: Performed By: #### C BC ####[facility] Nghhkkszoo8616 [place] [address]Dr. Tadeo Smyth Monocytes/100 WBC (Bld) 7.1 % Normal 1.7-12.0 [facility] Comment on above: Performed By: #### C BC ####[facility] Dzabjlniup76[address] [place], [place] [address]Dr. Tadeo Smyth NEUT # 3.4 103/ul Normal 1.4-6.5 [facility] Comment on above: Performed By: #### C BC ####[facility] Cuikwokgrj6707 [place] [address]Dr. Margotnicole Smyth Neutrophils/100 WBC (Bld) 61.5 % Normal 43.0-75.0 [facility] Comment on above: Performed By: #### C BC ####[facility] Igvvsxlrzq4089 [place] [address]Dr. Tadeo Smyth Platelet mean volume (Bld) [Entitic vol] 8.8 fL Critically low 9.5-13.5 [facility] Comment on above: Performed By: #### C BC ####[facility] Yegicenfbe7892 [place] [address]Dr. Tadeo Smyth PLT 324 103/ul Normal 150-450 [facility] Comment on above: Performed By: #### C BC ####[facility] Ivvkjxsndy0150 [place] [address]Dr. Tadeo Smyth RBC 4.12 106/ul Critically low 4.20-5.40 [facility] Comment on above: Performed By: #### C BC ####[facility] Rsowjcfrbi7180 [place] [address]Dr. Tadeo Smyth WBC 5.5 103/ul Normal 4.0-11.0 [facility] Comment on above: Performed By: #### C BC ####[facility] Lhoywlqytp0285 [place] [address]Dr. Tadeo Smyth PROF 14(COMP METB)on 022 Albumin [Mass/Vol] 3.1 g/dL Critically low 3.4-5.[address] [facility] Comment on above: Performed By: #### C MP ####[facility] Aksychavdt1150 [place] [address]Dr. Tadeo Smyth Albumin/Globulin [Mass ratio] 0.9 {ratio} Normal [facility] Comment on above: Performed By: #### C MP ####[facility] Cbuitgocyp3730 [place] [address]Dr. Tadeo Smyth ALP [Catalytic activity/Vol] 119 U/L Critically high 46-116 [facility] Comment on above: Performed By: #### C MP ####[facility] Znqygnywjh7738 [place] [address]Dr. Tadeo Smyth ALT [Catalytic activity/Vol] 17 U/L Normal 14-59 [facility] Comment on above: Performed By: #### C MP ####[facility] Bmfftubedj8377 [place] [address]Dr. Tadeo Smyth Anion gap [Moles/Vol] 12.0 mmol/L Normal [facility] Comment on above: Performed By: #### C MP ####[facility] Reovnzfpxo5273 [place] [address]DrNeo Smyth AST [Catalytic activity/Vol] 16 U/L Normal 15-37 [facility] Comment on above: Performed By: #### C MP ####[facility] Tmimjdtpuy7173 [place] [address]Dr. Tadeo Smyth Bilirubin [Mass/Vol] 0.4 mg/dL Normal 0.2-1.0 [facility] Comment on above: Performed By: #### C MP ####[facility] Vndrktvqzg140[address] [place], [place] [address]Dr. Tadeo Smyth Calcium [Mass/Vol] 8.9 mg/dL Normal 8.5-10.1 [facility] Comment on above: Performed By: #### C MP ####[facility] Kkxxrikdfv883[address] [place], [place] [address]Dr. Tadeo Smyth Chloride [Moles/Vol] 107 mmol/L Normal 98-107 [facility] Comment on above: Performed By: #### C MP ####[facility] Fsesxjqvkw7570[address] [place], [place] [address]Dr. Tadeo Smyth CO2 [Moles/Vol] 26.9 mmol/L Normal 21.0-32.0 [facility] Comment on above: Performed By: #### C MP ####[facility] Jlbrrtvlyk5834[address] [place], [place] [address]Dr. Tadeo Smyth Creatinine [Mass/Vol] 0.82 mg/dL Normal 0.55-1.02 [facility] Comment on above: Performed By: #### C MP ####[facility] Slbqcccoba494[address] [place], [place] [address]Dr. Tadeo Smyth EGFR-AF KOSOVAN >60 Normal >=60 [facility] Comment on above: Performed By: #### C MP ####[facility] Rwsvlxplsc654[address] [place], [place] [address]Dr. Tadeo Haja EGFR-NON AF KOSOVAN >60 Normal >=60 [facility] Comment on above: Performed By: #### C MP ####[facility] Bzotusnmls10[address] [place], [place] [address]Dr. Tadeo Smyth Globulin (S) [Mass/Vol] 3.5 g/dL Normal [facility] Comment on above: Performed By: #### C MP ####[facility] Feneydvzxb6937[address] [place], [place] [address]Dr. Margotnicole Haja Glucose [Mass/Vol] 104 mg/dL Normal 74-106 [facility] Comment on above: Performed By: #### C MP ####[facility] Wcolwvhrgd5763 [place] [address]Dr. Tadeo Smyth Potassium [Moles/Vol] 3.9 mmol/L Normal 3.5-5.1 [facility] Comment on above: Performed By: #### C MP ####[facility] Ynmxfoxwxt1033[address] [place], [place] [address]Dr. Tadeo Smyth Protein [Mass/Vol] 6.6 g/dL Normal 6.4-8.2 [facility] Comment on above: Performed By: #### C MP ####[facility] Prcrjspvth7598[address] [place], [place] [address]Dr. Tadeo Smyth Sodium [Moles/Vol] 142 mmol/L Normal 136-145 [facility] Comment on above: Performed By: #### C MP ####[facility] Ycmmglbdad2775[address] [place], [place] [address]Dr. Tadeo Smyth Urea nitrogen [Mass/Vol] 5.0 mg/dL Critically low 7.0-18.0 [facility] Comment on above: Performed By: #### C MP ####[facility] Dqrljjcrao994[address] [place], [place] [address]Dr. Tadeo Smyth Urea nitrogen/Creatinine [Mass ratio] 6.1 mg/mg Normal [facility] Comment on above: Performed By: #### C MP ####[facility] Zjmkeztnft438[address] [place], [place] [address]Dr. Tadeo Smyth CBC AUTO DIFFon 03-29-2022 BASO # 0.0 103/ul Normal 0.0-0.1 [facility] Comment on above: Performed By: #### C BC ####[facility] Cffbvyoldf13[address] [place], [place] [address]Dr. Tadeo mSyth Basophils/100 WBC (Bld) 0.4 % Normal 0.2-2.0 [facility] Comment on above: Performed By: #### C BC ####[facility] Irmbsdaetl54[address] [place], [place] [address]Dr. Tadeo Smyth EO # 0.2 103/ul Normal 0.0-0.7 [facility] Comment on above: Performed By: #### C BC ####[facility] Oobrxejuds2861 [place] [address]Dr. Tadeo Haja Eosinophils/100 WBC (Bld) 4.3 % Normal 0.9-7.0 [facility] Comment on above: Performed By: #### C BC ####[facility] Jpaxxevesu22[address] [place], [place] [address]Dr. Tadeo Smyth Erythrocyte distribution width (RBC) [Ratio] 12.9 % Normal 11.0-15.0 [facility] Comment on above: Performed By: #### C BC ####[facility] Vjzzelalxi5[address] [place], [place] [address]Dr. Margotnicole Smyth Hematocrit (Bld) [Volume fraction] 33.8 % Critically low 36.0-48.0 [facility] Comment on above: Performed By: #### C BC ####[facility] Xbbmcvctnq4[address] [place], [place] [address]Dr. Tadeo Smyth Hemoglobin (Bld) [Mass/Vol] 11.1 g/dL Critically low 12.0-16.0 [facility] Comment on above: Performed By: #### C BC ####[facility] Qwtojesach64[address] [place], [place] [address]Dr. Tadeo Smyth IG # 0.01 10e3/ul Normal 0.00-0.03 [facility] Comment on above: Performed By: #### C BC ####[facility] Qoyzghlpwa9664[address] [place], [place] [address]Dr. Tadeo Smyth IG % 0.2 % Normal 0.0-0.5 [facility] Comment on above: Performed By: #### C BC ####[facility] Tfsuwnukml13[address] [place], [place] [address]DrNeo Smyth LYMPH # 1.5 103/ul Normal 1.2-3.8 [facility] Comment on above: Performed By: #### C BC ####[facility] Cpjdksiuhd090[address] [place], [place] [address]Dr. Tadeo Smyth Lymphocytes/100 WBC (Bld) 29.9 % Normal 20.5-60.0 [facility] Comment on above: Performed By: #### C BC ####[facility] Iywgsdersl00[address] [place] [address]DrNeo Smyth MANUAL DIFF REQ NO Normal [facility] Comment on above: Performed By: #### C BC ####[facility] Ngslrgcevr1748 [place] [address]Dr. Tadeo Smyth MCH (RBC) [Entitic mass] 29.3 pg Normal 26.7-34.0 [facility] Comment on above: Performed By: #### C BC ####[facility] Tuwodscjyz5[address] [place], [place] [address]Dr. Tadeo Smyth MCHC (RBC) [Mass/Vol] 32.8 g/dL Normal 29.9-35.2 [facility] Comment on above: Performed By: #### C BC ####[facility] Ljfwfvzyaz4418[address] [place], [place] [address]Dr. Tadeo Smyth MCV (RBC) [Entitic vol] 89.2 fL Normal 81.0-99.0 [facility] Comment on above: Performed By: #### C BC ####[facility] Shnzobreez2834[address] [place], [place] [address]DrNeo Smyth MONO # 0.4 103/ul Normal 0.3-0.8 [facility] Comment on above: Performed By: #### C BC ####[facility] Yfubnksply514[address] [place], [place] [address]Dr. Tadeo Smyth Monocytes/100 WBC (Bld) 7.8 % Normal 1.7-12.0 [facility] Comment on above: Performed By: #### C BC ####[facility] Swzvfyrvre5577[address] [place], [place] [address]DrNeo Smyth NEUT # 2.8 103/ul Normal 1.4-6.5 [facility] Comment on above: Performed By: #### C BC ####[facility] Erhsqtqtut[address] [place], [place] [address]DrNeo Smyth Neutrophils/100 WBC (Bld) 57.4 % Normal 43.0-75.0 [facility] Comment on above: Performed By: #### C BC ####[facility] Gsfewchpja8188 [place] [id number] Smyth Platelet mean volume (Bld) [Entitic vol] 8.9 fL Critically low 9.5-13.5 [facility] Comment on above: Performed By: #### C BC ####[facility] Uvlbtbxais3165 [place] [address]DrNeo Smyth PLT 314 103/ul Normal 150-450 [facility] Comment on above: Performed By: #### C BC ####[facility] Wwgxjirpie2916 [place] [address]DrNeo Smyth RBC 3.79 106/ul Critically low 4.20-5.40 [facility] Comment on above: Performed By: #### C BC ####[facility] Nolmskvqdc490[address] [place], [place] [address]DrNeo Smyth WBC 4.9 103/ul Normal 4.0-11.0 [facility] Comment on above: Performed By: #### C BC ####[facility] Hkqscglxcf8960[address] [place], [place] [address]Dr. Tadeo Smyth PROF 14(COMP METB)on 022 Albumin [Mass/Vol] 2.8 g/dL Critically low 3.4-5.0 [facility] Comment on above: Performed By: #### C MP ####[facility] Tvtsaizujd2794 [place] [address]DrNeo Smyth Albumin/Globulin [Mass ratio] 0.8 {ratio} Normal [facility] Comment on above: Performed By: #### C MP ####[facility] Ftezqpvzrn0928[address] [place], [place] [address]DrNeo Smyth ALP [Catalytic activity/Vol] 117 U/L Critically high 46-116 [facility] Comment on above: Performed By: #### C MP ####[facility] Wijryzgeoz5728[address] [place], [place] [address]Dr. Tadeo Smyth ALT [Catalytic activity/Vol] 13 U/L Critically low 14-59 [facility] Comment on above: Performed By: #### C MP ####[facility] Dxswmsprrx4368 [place] [address]Dr. Tadeo Haja Anion gap [Moles/Vol] 8.7 mmol/L Normal [facility] Comment on above: Performed By: #### C MP ####[facility] Nuuoalxmrk8860[address] [place], [place] [address]Dr. Tdaeo Haja AST [Catalytic activity/Vol] 12 U/L Critically low 15-37 [facility] Comment on above: Performed By: #### C MP ####[facility] Qitumfxrgp400[address] [place], [place] [address]Dr. Tadeo Smyth Bilirubin [Mass/Vol] 0.4 mg/dL Normal 0.2-1.0 [facility] Comment on above: Performed By: #### C MP ####[facility] Npxucviynj3389[address] [place], [place] [address]Dr. Tadeo Smyth Calcium [Mass/Vol] 8.5 mg/dL Normal 8.5-10.1 [facility] Comment on above: Performed By: #### C MP ####[facility] Uvklgtanez4629[address] [place], [place] [address]Dr. Tadeo Smyth Chloride [Moles/Vol] 108 mmol/L Critically high 98-107 [facility] Comment on above: Performed By: #### C MP ####[facility] Hfpvaybxcl395[address] [place], [place] [address]Dr. Tadeo Smyth CO2 [Moles/Vol] 28.0 mmol/L Normal 21.0-32.0 [facility] Comment on above: Performed By: #### C MP ####[facility] Wmteoytftn37[address] [place], [place] [address]Dr. Tadeo Smyth Creatinine [Mass/Vol] 0.74 mg/dL Normal 0.55-1.02 [facility] Comment on above: Performed By: #### C MP ####[facility] Zilvhdvruq[address] [place], [place] [address]Dr. Tadeo Smyth EGFR-AF KOSOVAN >60 Normal >=60 [facility] Comment on above: Performed By: #### C MP ####[facility] Nvzlasbpue9952 [place], [place] [address]Zq. Tadeo Smyth EGFR-NON AF KOSOVAN >60 Normal >=60 [facility] Comment on above: Performed By: #### C MP ####[facility] Sefdtboarr1993 [place], [place] [address]Io. Tadeo Smyth Globulin (S) [Mass/Vol] 3.4 g/dL Normal [facility] Comment on above: Performed By: #### C MP ####[facility] Pzgcoxdhkn8761 [place] [address]Dr. Tadeo Smyth Glucose [Mass/Vol] 107 mg/dL Critically high 74-106 [facility] Comment on above: Performed By: #### C MP ####[facility] Igwlbvaeav8361 [place] [address]Dr. Tadeo Smyth Potassium [Moles/Vol] 3.7 mmol/L Normal 3.5-5.1 [facility] Comment on above: Performed By: #### C MP ####[facility] Uzuckpikwb5705 [place] [phone]. Tadeo Smyth Protein [Mass/Vol] 6.2 g/dL Critically low 6.4-8.2 [facility] Comment on above: Performed By: #### C MP ####[facility] Fwjqzxftzl7691 [place] [address]Dr. Tadeo Smyth Sodium [Moles/Vol] 141 mmol/L Normal 136-145 [facility] Comment on above: Performed By: #### C MP ####[facility] Ifzavqgstp6405 [place] [address]Dr. Tadeo Smyth Urea nitrogen [Mass/Vol] 7.0 mg/dL Normal 7.0-18.0 [facility] Comment on above: Performed By: #### C MP ####[facility] Jeaaamjytm8964 [place] [phone]. Tadeo Haja Urea nitrogen/Creatinine [Mass ratio] 9.5 mg/mg Normal [facility] Comment on above: Performed By: #### C MP ####[facility] Caccyunqgs7874 [place] [address]Dr. Tadeo Smyth XR KUB 1 VIEWon 03-29-2022 XR KUB 1 VIEW Normal [facility] CBC AUTO DIFFon 03-28-2022 BASO # 0.0 103/ul Normal 0.0-0.1 [facility] Comment on above: Performed By: #### C BC ####[facility] Pfnvnvhkvy3820 [place] [address]Dr. Tadeo Haja Basophils/100 WBC (Bld) 0.7 % Normal 0.2-2.0 [facility] Comment on above: Performed By: #### C BC ####[facility] Milxpcoxpf37[address] [place], [place] [address]Dr. Tadeo Smyth EO # 0.2 103/ul Normal 0.0-0.7 [facility] Comment on above: Performed By: #### C BC ####[facility] Arjypxtxhv[address] [place], [place] [address]Dr. Tadeo Haja Eosinophils/100 WBC (Bld) 3.3 % Normal 0.9-7.0 [facility] Comment on above: Performed By: #### C BC ####[facility] Ycmfqcdebi99[address] [place], [place] [address]Dr. Tadeo Smyth Erythrocyte distribution width (RBC) [Ratio] 13.2 % Normal 11.0-15.0 [facility] Comment on above: Performed By: #### C BC ####[facility] Plchhfbxnr39[address] [place], [place] [address]Dr. Tadeo Smyth Hematocrit (Bld) [Volume fraction] 34.2 % Critically low 36.0-48.0 [facility] Comment on above: Performed By: #### C BC ####[facility] Pbcldoxmrl55[address] [place], [place] [address]Dr. Tadeo Smyth Hemoglobin (Bld) [Mass/Vol] 10.8 g/dL Critically low 12.0-16.0 [facility] Comment on above: Performed By: #### C BC ####[facility] Erqhandevt9351 [place] [id number]. Tadeo Smyth IG # 0.01 10e3/ul Normal 0.00-0.03 [facility] Comment on above: Performed By: #### C BC ####[facility] Aiftuwuneq6583 [place] [address]Dr. Tadeo Smyth IG % 0.2 % Normal 0.0-0.5 [facility] Comment on above: Performed By: #### C BC ####[facility] Cgoyjopsus5428 [place] [address]Dr. Tadeo Smyth LYMPH # 1.3 103/ul Normal 1.2-3.8 [facility] Comment on above: Performed By: #### C BC ####[facility] Uhmqeqfhal0707 [place] [address]Dr. Taedo Smyth Lymphocytes/100 WBC (Bld) 28.4 % Normal 20.5-60.0 [facility] Comment on above: Performed By: #### C BC ####[facility] Whctycjtss0432 [place] [address]Dr. Tadeo Smyth MANUAL DIFF REQ NO Normal [facility] Comment on above: Performed By: #### C BC ####[facility] Kwpjumzmvc2812 [place] [address]Dr. Tadeo Smyth MCH (RBC) [Entitic mass] 28.3 pg Normal 26.7-34.0 [facility] Comment on above: Performed By: #### C BC ####[facility] Xsaygqrrhh2859 [place] [address]Dr. Tadeo Smyth MCHC (RBC) [Mass/Vol] 31.6 g/dL Normal 29.9-35.2 [facility] Comment on above: Performed By: #### C BC ####[facility] Jspdcheoru4108 [place] [address]Dr. Tadeo Smyth MCV (RBC) [Entitic vol] 89.5 fL Normal 81.0-99.0 [facility] Comment on above: Performed By: #### C BC ####[facility] Vwapcgvnpj5535 [place] [id number]. Tadeo Smyth MONO # 0.3 103/ul Normal 0.3-0.8 [facility] Comment on above: Performed By: #### C BC ####[facility] Ecnvpxgdmi0436 [place] [phone]. Tadeo Smyth Monocytes/100 WBC (Bld) 5.5 % Normal 1.7-12.0 [facility] Comment on above: Performed By: #### C BC ####[facility] Wyqjrnsacg1388 [place] [address]Dr. Tadeo Smyth NEUT # 2.8 103/ul Normal 1.4-6.5 [facility] Comment on above: Performed By: #### C BC ####[facility] Inqqlidhzd0744 [place] [phone]. Tadeo Smyth Neutrophils/100 WBC (Bld) 61.9 % Normal 43.0-75.0 [facility] Comment on above: Performed By: #### C BC ####[facility] Kkupdglcnf8770 [place] [phone]. Tadeo Smyth Platelet mean volume (Bld) [Entitic vol] 9.1 fL Critically low 9.5-13.5 [facility] Comment on above: Performed By: #### C BC ####[facility] Icxoiylxiv5856 [place] [phone]. Tadeo Smyth PLT 327 103/ul Normal 150-450 [facility] Comment on above: Performed By: #### C BC ####[facility] Sdvfgretvv5107 [place] [address]Dr. Tadeo Smyth RBC 3.82 106/ul Critically low 4.20-5.40 [facility] Comment on above: Performed By: #### C BC ####[facility] Mhjlxdrghv4652 [place] [phone]. Tadeo Smyth WBC 4.5 103/ul Normal 4.0-11.0 [facility] Comment on above: Performed By: #### C BC ####[facility] Ihrdtlogti[address] [place], [place] [address]Dr. Tadeo Smyth POINT OF CARE GLUCOSEon 03-06 Glucose [Mass/Vol] 84 mg/dL Normal 74-106 [facility] Comment on above: Performed By: #### P OCGLUC ####[facility] Mrljtnmaom4126 [place] [address]Dr. Tadeo Smyth PROF 14(COMP METB)on 022 Albumin [Mass/Vol] 2.9 g/dL Critically low 3.4-5.[address] [facility] Comment on above: Performed By: #### C MP ####[facility] Fyreprlhgt7415 [place] [address]Dr. Tadeo Smyth Albumin/Globulin [Mass ratio] 0.9 {ratio} Normal [facility] Comment on above: Performed By: #### C MP ####[facility] Rdhlnbhfoz637[address] [place], [place] [address]Dr. Tadeo Smyth ALP [Catalytic activity/Vol] 119 U/L Critically high 46-116 [facility] Comment on above: Performed By: #### C MP ####[facility] Rhvdgfffmw1489 [place] [address]Dr. Tadeo Smyth ALT [Catalytic activity/Vol] 15 U/L Normal 14-59 [facility] Comment on above: Performed By: #### C MP ####[facility] Ucudkqexxp9123 [place] [address]Dr. Tadeo Smyth Anion gap [Moles/Vol] 7.9 mmol/L Normal [facility] Comment on above: Performed By: #### C MP ####[facility] Duezudrjcn1082 [place] [address]Dr. Tadeo Smyth AST [Catalytic activity/Vol] 11 U/L Critically low 15-37 [facility] Comment on above: Performed By: #### C MP ####[facility] Tcabbevuvv79[address] [place], [place] [address]Dr. Tadeo Smyth Bilirubin [Mass/Vol] 0.4 mg/dL Normal 0.2-1.0 [facility] Comment on above: Performed By: #### C MP ####[facility] Kfbkbbtcfp9877 [place] [phone]. Tadeo Smyth Calcium [Mass/Vol] 8.7 mg/dL Normal 8.5-10.1 [facility] Comment on above: Performed By: #### C MP ####[facility] Psgcgutovt3801 [place] [phone]. Tadeo Smyth Chloride [Moles/Vol] 109 mmol/L Critically high 98-107 [facility] Comment on above: Performed By: #### C MP ####[facility] Hdppfwsjau4098 [place] [address]Dr. Tadeo Smyth CO2 [Moles/Vol] 27.9 mmol/L Normal 21.0-32.0 [facility] Comment on above: Performed By: #### C MP ####[facility] Upcazenunx7453 [place] [address]Dr. Tadeo Smyth Creatinine [Mass/Vol] 0.75 mg/dL Normal 0.55-1.02 [facility] Comment on above: Performed By: #### C MP ####[facility] Mchsileqqk2770 [place] [address]Dr. Tadeo Smyth EGFR-AF KOSOVAN >60 Normal >=60 [facility] Comment on above: Performed By: #### C MP ####[facility] Xgbqziwcql6568 [place] [address]Dr. Tadeo Smyth EGFR-NON AF KOSOVAN >60 Normal >=60 [facility] Comment on above: Performed By: #### C MP ####[facility] Baqjoniftv5192 [place] [address]Dr. Tadeo Smyth Globulin (S) [Mass/Vol] 3.3 g/dL Normal [facility] Comment on above: Performed By: #### C MP ####[facility] Ihdbrnquya6180 [place] [address]Dr. Tadeo Smyth Glucose [Mass/Vol] 95 mg/dL Normal 74-106 [facility] Comment on above: Performed By: #### C MP ####[facility] Ahyuphvxsy14[address] [place], [place] [address]Dr. Tadeo Smyth Potassium [Moles/Vol] 3.8 mmol/L Normal 3.5-5.1 [facility] Comment on above: Performed By: #### C MP ####[facility] Ptuqxsdnha9825[address] [place], [place] [address]Dr. Tadeo Smyth Protein [Mass/Vol] 6.2 g/dL Critically low 6.4-8.2 [facility] Comment on above: Performed By: #### C MP ####[facility] Tnspqoxgdh097[address] [place], [place] [address]Dr. Tadeo Smyth Sodium [Moles/Vol] 141 mmol/L Normal 136-145 [facility] Comment on above: Performed By: #### C MP ####[facility] Bfpxkztrao284[address] [place], [place] [address]Dr. Tadeo Smyth Urea nitrogen [Mass/Vol] 8.0 mg/dL Normal 7.0-18.0 [facility] Comment on above: Performed By: #### C MP ####[facility] Iaiaheltuq6170[address] [place], [place] [address]Dr. Tadeo Smyth Urea nitrogen/Creatinine [Mass ratio] 10.7 mg/mg Normal [facility] Comment on above: Performed By: #### C MP ####[facility] Vlmecdtrca119[address] [place], [place] [address]Dr. 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 Tadeo Smyth Clarity (U) SL CLOUDY Abnormal CLEAR [facility] Comment on above: Performed By: #### U SANDRO GARVEYRO ####[facility] Imtoqzrttq0380 [place] [address]Dr. Tadeo Smyth Color (U) LT. YELLOW Normal YELLOW [facility] Comment on above: Performed By: #### U SANDRO GARVEYRO ####[facility] Hzrmhvuumh8124 [place] [address]Dr. Tadeo Smyth Glucose Ql (U) Negative Normal NEGATIVE [facility] Comment on above: Performed By: #### U ACSBLANE, UMICRO ####[facility] Yglkfuokra97[address] [place], [place] [address]Dr. Tadeo Smyth Hemoglobin Ql (U) TRACE-INTACT Abnormal NEGATIVE [facility] Comment on above: Performed By: #### U ACSBLANE, UMICRO ####[facility] Abmmebcaft5099[address] [place], [place] [address]Dr. Tadeo Smyth Ketones Ql (U) TRACE Abnormal NEGATIVE [facility] Comment on above: Performed By: #### U ACSBLANE UMICRO ####[facility] Svmpezggdi4235[address] [place], [place] [address]Dr. Tadeo Smyth LEUKOCYTES Negative Normal NEGATIVE [facility] Comment on above: Performed By: #### U ACSBLANE UMICRO ####[facility] Hvdjljmoyi148[address] [place], [place] [address]Dr. Tadeo Smyth Nitrite Ql (U) Negative Normal NEGATIVE [facility] Comment on above: Performed By: #### U ACSBLANE UMICRO ####[facility] Txtnpjqsvo4368[address] [place], [place] [address]Dr. Tadeo Smyth pH (U) 6.5 [pH] Normal 5-9 [facility] Comment on above: Performed By: #### U ACSBLANE UMICRO ####[facility] Bqhhulocux7630[address] [place], [place] [address]Dr. Tadeo Smyth SPEC GRAVITY 1.015 Normal 1.005-<=1.0 25 [facility] Comment on above: Performed By: #### U ACSBLANE UMICRO ####[facility] Imfxbvgatd159[address] [place], [place] [address]Dr. Tadeo Smyth UA PROTEIN Negative Normal NEGATIVE/ TRACE [facility] Comment on above: Performed By: #### U ACSBLANE, UMICRO ####[facility] Fugplvnorc95[address] [place], [place] [address]Dr. Tadeo Smyth UR MICRO IND INDICATED Normal [facility] Comment on above: Performed By: #### U ACSBLANE, UMICRO ####[facility] Kvuqtnnzvg9630 [place] [address]Dr. Margotnicole Smyth Urobilinogen Qn (U) 0.2 {Benito'U}/dL Normal 0.2 - 1. 0 [facility] Comment on above: Performed By: #### U ACSBLANE, UMICRO ####[facility] Fbzgqnflim8386 [place] [address]Dr. Tadeo Smyth URINE MICROSCOPIC ONLYon BACTERIA MODERATE Abnormal NONE SEEN [facility] Comment on above: Performed By: #### U ACSBLANE, UMICRO ####[facility] Xsmfwxfauo624[address] [place], [place] [address]Dr. Tadeo Smyth Bacteria identified Cx Nom (U) INDICATED Normal [facility] Comment on above: Performed By: #### U ACSBLANE, UMICRO ####[facility] Galstoarqz796[address] [place], [place] [address]Dr. Tadeo Smyth CAST NONE SEEN Normal NONE SEEN [facility] Comment on above: Performed By: #### U ACSBLANE, UMICRO ####[facility] Axrwjvbrxz4556[address] [place], [place] [address]Dr. Tadeo Smyth Crystals LM Nom (Urine sed) NONE SEEN Normal NONE SEEN [facility] Comment on above: Performed By: #### U ACSBLANE, UMICRO ####[facility] Nlkqwwfykd24[address] [place], [place] [address]Dr. Tadeo Smyth Epithelial cells LM Ql (Urine sed) RARE Normal NONE SEEN /RARE [facility] Comment on above: Performed By: #### U ACSBLANE, UMICRO ####[facility] Pybhqedavi05[address] [place], [place] [address]Dr. Tadeo Smyth MUCOUS NONE SEEN Normal NONE SEEN [facility] Comment on above: Performed By: #### U ACSIND, UMICRO ####[facility] Wxfskjstso3800 [place] [address]Dr. Tadeo Smyth RBC NONE SEEN Abnormal 0-2 [facility] Comment on above: Performed By: #### U ACSIND, UMICRO ####[facility] Rpaxcyrgdb2594 [place] [id number]. Tadeo Smyth WBC 2-5 Abnormal NONE SEEN [facility] Comment on above: Performed By: #### U KAROL GARVEY ####[facility] Jycscqmpjh0891 [place] [address]Dr. Tadeo Smyth XR ABD FLAT UP_PA Kasey 03-28 XR ABD FLAT UP_PA CH Normal [facility] CBC AUTO DIFFon 03-27-2022 BASO # 0.0 103/ul Normal 0.0-0.1 [facility] Comment on above: Performed By: #### C BC ####[facility] Gyjzhkwyjp7942 [place] [address]Dr. Tadeo Smyth Basophils/100 WBC (Bld) 0.5 % Normal 0.2-2.0 [facility] Comment on above: Performed By: #### C BC ####[facility] Jztnszyaev9526[address] [place], [place] [address]Dr. Tadeo Smyth EO # 0.2 103/ul Normal 0.0-0.7 [facility] Comment on above: Performed By: #### C BC ####[facility] Xszshwpann149[address] [place], [place] [address]Dr. Tadeo Smyth Eosinophils/100 WBC (Bld) 3.2 % Normal 0.9-7.0 [facility] Comment on above: Performed By: #### C BC ####[facility] Ynqjipbokl6640 [place] [address]Dr. Tadeo Smyth Erythrocyte distribution width (RBC) [Ratio] 13.1 % Normal 11.0-15.0 [facility] Comment on above: Performed By: #### C BC ####[facility] Fstocljguw559[address] [place], [place] [address]Dr. Tadeo Smyth Hematocrit (Bld) [Volume fraction] 34.8 % Critically low 36.0-48.0 [facility] Comment on above: Performed By: #### C BC ####[facility] Hzeaitksed27[address] [place], [place] [address]DrNeo Smyth Hemoglobin (Bld) [Mass/Vol] 11.3 g/dL Critically low 12.0-16.0 [facility] Comment on above: Performed By: #### C BC ####[facility] Bgpvuycvcr5131 [place] [address]DrNeo Smyth IG # 0.01 10e3/ul Normal 0.00-0.03 [facility] Comment on above: Performed By: #### C BC ####[facility] Anwtjxgifn4842 [place] [address]DrNeo Smyth IG % 0.2 % Normal 0.0-0.5 [facility] Comment on above: Performed By: #### C BC ####[facility] Cmlzkwdjdl[address] [place], [place] [address]DrNeo Smyth LYMPH # 1.6 103/ul Normal 1.2-3.8 [facility] Comment on above: Performed By: #### C BC ####[facility] Txbcpvkure24[address] [place], [place] [address]DrNeo Smyth Lymphocytes/100 WBC (Bld) 29.1 % Normal 20.5-60.0 [facility] Comment on above: Performed By: #### C BC ####[facility] Qblchtisuw36[address] [place], [place] [address]DrNeo Smyth MANUAL DIFF REQ NO Normal [facility] Comment on above: Performed By: #### C BC ####[facility] Grvmpebxqd0780 [place] [address]DrNeo Smyth MCH (RBC) [Entitic mass] 29.1 pg Normal 26.7-34.0 [facility] Comment on above: Performed By: #### C BC ####[facility] Mmsrxevxii[address] [place], [place] [address]DrNeo Smyth MCHC (RBC) [Mass/Vol] 32.5 g/dL Normal 29.9-35.2 [facility] Comment on above: Performed By: #### C BC ####[facility] Mgbpgcqjqk3[address] [place], [place] [address]DrNeo Smyth MCV (RBC) [Entitic vol] 89.7 fL Normal 81.0-99.0 [facility] Comment on above: Performed By: #### C BC ####[facility] Sdd[address]unxny[address] [place] [address]Dr. Tadeo Smyth MONO # 0.3 103/ul Normal 0.3-0.8 [facility] Comment on above: Performed By: #### C BC ####[facility] Egtqukxnps90[address] [place] [address]Dr. Tadeo Smyth Monocytes/100 WBC (Bld) 5.7 % Normal 1.7-12.0 [facility] Comment on above: Performed By: #### C BC ####[facility] Prsaifxvna[address] [place], [place] [address]Dr. Tadeo Smyth NEUT # 3.5 103/ul Normal 1.4-6.5 [facility] Comment on above: Performed By: #### C BC ####[facility] Nsaovdkumq99[address] [place], [place] [address]Dr. Tadeo Smyth Neutrophils/100 WBC (Bld) 61.3 % Normal 43.0-75.0 [facility] Comment on above: Performed By: #### C BC ####[facility] Kzjkximuuo[address] [place], [place] [address]Dr. Tadeo Smyth Platelet mean volume (Bld) [Entitic vol] 9.1 fL Critically low 9.5-13.5 [facility] Comment on above: Performed By: #### C BC ####[facility] Qnhczvknbu[address] [place], [place] [address]Dr. Tadeo Haja PLT 355 103/ul Normal 150-450 [facility] Comment on above: Performed By: #### C BC ####[facility] Cfqttttnsi[address] [place], [place] [address]Dr. Tadeo Haja RBC 3.88 106/ul Critically low 4.20-5.40 [facility] Comment on above: Performed By: #### C BC ####[facility] Jwhtfygrer[address] [place], [place] [address]Dr. Tadeo Haja WBC 5.6 103/ul Normal 4.0-11.0 [facility] Comment on above: Performed By: #### C BC ####[facility] Yggyxuvopv[address] [place] [address]Dr. Margotnicole Smyth CT ABD/PELV W CONon 03-27-20 CT ABD/PELV W CON Normal The [facility] CT ABD/PELVIS WO CONon 03-27 CT ABD/PELVIS WO CON Normal [facility] PCR ([facility]on [facility]-06 SARS-CoV-2 (COVID-19) RNA CHEN+probe Ql (Unsp spec) Not detected Normal NOT DETECTED [facility] Comment on above: Result Comment: When [...] for this test is supported by the [employer] of Health and Human Service's declaration that [...] be used). Performed By: #### C VDTBH ####[facility] Jzcmayrtpy[address] [place] [address]Dr. Tadeo Smyth ER URINE PROFILEon Bilirubin Ql (U) Negative Normal NEGATIVE The [facility] Comment on above: Performed By: #### E GUI FRANCISCOU ####[facility] Bgnorlpfzj12[address] [place], [place] [address]Dr. Tadeo Smyth Clarity (U) CLEAR Normal CLEAR [facility] Comment on above: Performed By: #### E NOLAN PREGU ####[facility] Ypuggzdvfx88[address] [place], [place] [address]Dr. Tadeo Smyth Color (U) LT. YELLOW Normal YELLOW [facility] Comment on above: Performed By: #### E RUR, PREGU ####[facility] Ejwmusqzhb75[address] [place] [address]Dr. Tadeo PANAHD A micrscopic examina tion will be performed if indicated. Normal [facility] Comment on above: Performed By: #### E RUR, PREGU ####[facility] Ykfeoyvwnm50[address] [place] [address]Dr. Tadeo Smtyh Glucose Ql (U) Negative Normal NEGATIVE The [facility] Comment on above: Performed By: #### E RUR, PREGU ####[facility] Bhrsoxhtwc2869[address] [place], [place] [address]Dr. Tadeo Smyth Hemoglobin Ql (U) SMALL Abnormal NEGATIVE The [facility] Comment on above: Performed By: #### E RUR, PREGU ####[facility] Jksxiimmbi136[address] [place], [place] [address]Dr. Tadeo Smyth Ketones Ql (U) TRACE Abnormal NEGATIVE [facility] Comment on above: Performed By: #### E RUR, PREGU ####[facility] Tjvaiywovu34[address] [place], [place] [address]Dr. Tadeo Smyth LEUKOCYTES Negative Normal NEGATIVE [facility] Comment on above: Performed By: #### E RUR, PREGU ####[facility] Dmyvewamaa13[address] [place] [address]Dr. Tadeo Smyth Nitrite Ql (U) Negative Normal NEGATIVE The [facility] Comment on above: Performed By: #### E RUR, PREGU ####[facility] Qemhwyjmft04[address] [place] [address]Dr. Tadeo Smyth pH (U) 6.0 [pH] Normal 5-9 [facility] Comment on above: Performed By: #### E RUR, PREGU ####[facility] Pmqgajmupj20[address] [place] [address]Dr. Tadeo Smyth SPEC GRAVITY >=1.030 Abnormal 1.005-<=1.0 25 [facility] Comment on above: Performed By: #### E RUR, PREGU ####[facility] Gylehdrubd8[address] [place] [address]Dr. Tadeo Smyth UA PROTEIN Negative Normal NEGATIVE/ TRACE [facility] Comment on above: Performed By: #### E RUR, PREGU ####[facility] Ozbmmdvlzp14[address] [place] [address]Dr. Tadeo Smyth UR MICRO IND NOT INDICATED Normal [facility] Comment on above: Performed By: #### E RUR, PREGU ####[facility] Fnmnvzbwdt83[address] [place] [address]Dr. Tadeo Smyth Urobilinogen Qn (U) 0.2 {Benito'U}/dL Normal 0.2 - 1. 0 [facility] Comment on above: Performed By: #### E RUR, PREGU ####[facility] Fjwntxnjwi1939[address] [place], [place] [address]Dr. Tadeo Smyth LIPASEon 03-27-2022 Lipase [Catalytic activity/Vol] 126.0 U/L Normal 73.0-393.0 [facility] Comment on above: Performed By: #### L IPA, CMP ####[facility] Yfzgidijei16[address] [place], [place] [address]Dr. Tadeo Smyth URon 03-27-2022 , QUAL Negative Normal NEGATIVE [facility] Comment on above: Performed By: #### E RUR, PREGU ####[facility] Atwdcwmhkp27[address] [place], [place] [address]Dr. Tadeo Smyth PROF 14(COMP METB)on 022 Albumin [Mass/Vol] 3.6 g/dL Normal 3.4-5.0 The [facility] Comment on above: Performed By: #### L IPA, CMP ####[facility] Aqzegfbdwz9811[address] [place], [place] [address]Dr. Tadeo Smyth Albumin/Globulin [Mass ratio] 1.1 {ratio} Normal [facility] Comment on above: Performed By: #### L IPA, CMP ####[facility] Qdbsacquts7[address] [place], [place] [address]Dr. Tadeo Smyth ALP [Catalytic activity/Vol] 139 U/L Critically high 46-116 [facility] Comment on above: Performed By: #### L IPA, CMP ####[facility] Xulizycazu6714[address] [place], [place] [address]Dr. Tadeo Smyth ALT [Catalytic activity/Vol] 18 U/L Normal 14-59 [facility] Comment on above: Performed By: #### L IPA, CMP ####[facility] Xtdqctmxua6190[address] [place], [place] [address]Dr. Tadeo Smyth Anion gap [Moles/Vol] 10.7 mmol/L Normal e [facility] Comment on above: Performed By: #### L IPA, CMP ####[facility] Hkbrrjaorr1520[address] [place], [place] [address]Dr. Tadeo Smyth AST [Catalytic activity/Vol] 11 U/L Critically low 15-37 [facility] Comment on above: Performed By: #### L IPA, CMP ####[facility] Qbjyqowzxy6536[address] [place], [place] [address]Dr. Tadeo Smyth Bilirubin [Mass/Vol] 0.2 mg/dL Normal 0.2-1.0 [facility] Comment on above: Performed By: #### L IPA, CMP ####[facility] Ftjhbgdwcw2335[address] [place], [place] [address]Dr. Tadeo Smyth Calcium [Mass/Vol] 9.0 mg/dL Normal 8.5-10.1 [facility] Comment on above: Performed By: #### L IPA, CMP ####[facility] Amrtqbtjpx1040[address] [place], [place] [address]Dr. Tadeo Smyth Chloride [Moles/Vol] 106 mmol/L Normal 98-107 [facility] Comment on above: Performed By: #### L IPA, CMP ####[facility] Aoekssdwmy4232[address] [place], [place] [address]Dr. Tadeo Smyth CO2 [Moles/Vol] 26.9 mmol/L Normal 21.0-32.0 [facility] Comment on above: Performed By: #### L IPA, CMP ####[facility] Lnutppsitr2953 [place] [address]Dr. Tadeo Smyth Creatinine [Mass/Vol] 0.84 mg/dL Normal 0.55-1.02 [facility] Comment on above: Performed By: #### L IPA, CMP ####[facility] Szgivoczae52[address] [place] [address]Dr. Tadeo Smyth EGFR-AF KOSOVAN >60 Normal >=60 The [facility] Comment on above: Performed By: #### L IPA, CMP ####[facility] Pagenierci[address] [place], [place] [address]Dr. Tadeo Smyth EGFR-NON AF KOSOVAN >60 Normal >=60 [facility] Comment on above: Performed By: #### L IPA, CMP ####[facility] Arzglwmiot5879[address] [place], [place] [address]Dr. Tadeo Smyth Globulin (S) [Mass/Vol] 3.4 g/dL Normal [facility] Comment on above: Performed By: #### L IPA, CMP ####[facility] Wgkebjefyi05[address] [place], [place] [address]Dr. Tadeo Smyth Glucose [Mass/Vol] 96 mg/dL Normal 74-106 [facility] Comment on above: Performed By: #### L IPA, CMP ####[facility] Zixgwnybpj494[address] [place], [place] [address]Dr. Tadeo Smyth Potassium [Moles/Vol] 3.6 mmol/L Normal 3.5-5.1 [facility] Comment on above: Performed By: #### L IPA, CMP ####[facility] Wviajgsmdi3404[address] [place], [place] [address]Dr. Tadeo Smyth Protein [Mass/Vol] 7.0 g/dL Normal 6.4-8.2 [facility] Comment on above: Performed By: #### L IPA, CMP ####[facility] Vvnjqmgrkt2884[address] [place], [place] [address]Dr. Tadeo Smyth Sodium [Moles/Vol] 140 mmol/L Normal 136-145 [facility] Comment on above: Performed By: #### L IPA, CMP ####[facility] Tfhkbigvpf7[address] [place] [address]Dr. Tadeo Smyth Urea nitrogen [Mass/Vol] 23.0 mg/dL Critically high 7.0-18.0 [facility] Comment on above: Performed By: #### L IPA, CMP ####[facility] Hnvlyezeie7522[address] [place], [place] [address]Dr. Margotnicole Smyth Urea nitrogen/Creatinine [Mass ratio] 27.4 mg/mg Normal [facility] Comment on above: Performed By: #### L IPA, CMP ####[facility] Cusrlmlysp7200[address] [place], [place] [address]Dr. Margotnicole Smyth GROUP A STREP CULTUREon S. pyogenes Ag Ql (Unsp spec) Normal [facility] Comment on above: Performed By: #### G RASTCX, SSCRN ####[facility] Omrknenvas89[address] [place], [place] [address]Dr. Margotnicole Smyth AMYLASEon 02-02-2022 Amylase [Catalytic activity/Vol] 37 U/L Normal 25-115 [facility] Comment on above: Performed By: #### C MP, VIJI, LIPA ####[facility] Glojilbioj70[address] [place], [place] [address]Dr. Tadeo Haja CBC AUTO DIFFon 02-02-2022 BASO # 0.0 103/ul Normal 0.0-0.1 [facility] Comment on above: Performed By: #### C BC ####[facility] Tmdfmkhqsl5614[address] [place], [place] [address]Dr. Tadeo Smyth Basophils/100 WBC (Bld) 0.2 % Normal 0.2-2.0 [facility] Comment on above: Performed By: #### C BC ####[facility] Llwwayrjvh6868[address] [place], [place] [address]Dr. Tadeo Smyth EO # 0.0 103/ul Normal 0.0-0.7 [facility] Comment on above: Performed By: #### C BC ####[facility] Nnddotldpe2214[address] [place], [place] [address]Dr. Tadeo Smyth Eosinophils/100 WBC (Bld) 0.2 % Critically low 0.9-7.0 [facility] Comment on above: Performed By: #### C BC ####[facility] Zmtypqdqbv5622 [place] [address]Dr. Tadeo Smyth Erythrocyte distribution width (RBC) [Ratio] 13.4 % Normal 11.0-15.0 [facility] Comment on above: Performed By: #### C BC ####[facility] Lvbdbmywqn5927 [place] [address]Dr. Margotnicole Haja Hematocrit (Bld) [Volume fraction] 36.8 % Normal 36.0-48.0 [facility] Comment on above: Performed By: #### C BC ####[facility] Pcdpqicacy[address] [place], [place] [address]Dr. Tadeo Smyth Hemoglobin (Bld) [Mass/Vol] 11.6 g/dL Critically low 12.0-16.0 [facility] Comment on above: Performed By: #### C BC ####[facility] Ypynzgdthc9736[address] [place], [place] [address]Dr. Margotnicole Haja IG # 0.08 10e3/ul Critically high 0.00-0.[address] [facility] Comment on above: Performed By: #### C BC ####[facility] Gectzmisoc[address] [place], [place] [address]Dr. Tadeo Smyth IG % 0.6 % Critically high 0.0-0.5 [facility] Comment on above: Performed By: #### C BC ####[facility] Njtmlgbcnk0280[address] [place], [place] [address]Dr. Tadeo Smyth LYMPH # 0.9 103/ul Critically low 1.2-3.8 [facility] Comment on above: Performed By: #### C BC ####[facility] Lzcpbqxzhi8879[address] [place], [place] [address]Dr. Tadeo Smyth Lymphocytes/100 WBC (Bld) 6.9 % Critically low 20.5-60.0 [facility] Comment on above: Performed By: #### C BC ####[facility] Vztbiprkwd087[address] [place], [place] [address]Dr. Tadeo Smyth MANUAL DIFF REQ NO Normal [facility] Comment on above: Performed By: #### C BC ####[facility] Fxyhhgklpp8186 [place] [address]Dr. Tadeo Smyth MCH (RBC) [Entitic mass] 28.9 pg Normal 26.7-34.0 [facility] Comment on above: Performed By: #### C BC ####[facility] Rqupdftqpa1209 [place] [address]Dr. Tadeo Smyth MCHC (RBC) [Mass/Vol] 31.5 g/dL Normal 29.9-35.2 [facility] Comment on above: Performed By: #### C BC ####[facility] Jxkttjbbox5[address] [place], [place] [address]DrNeo Smyth MCV (RBC) [Entitic vol] 91.8 fL Normal 81.0-99.0 [facility] Comment on above: Performed By: #### C BC ####[facility] Sjtvnttcet[address] [place], [place] [address]DrNeo Smyth MONO # 0.9 103/ul Critically high 0.3-0.8 [facility] Comment on above: Performed By: #### C BC ####[facility] Cxfqzlinwr229[address] [place], [place] [address]DrNeo Smyth Monocytes/100 WBC (Bld) 6.9 % Normal 1.7-12.0 [facility] Comment on above: Performed By: #### C BC ####[facility] Najqkhsori72[address] [place], [place] [address]DrNeo Smyth NEUT # 11.6 103/ul Critically high 1.4-6.5 [facility] Comment on above: Performed By: #### C BC ####[facility] Cddzvbrfpz840[address] [place], [place] [address]DrNeo Smyth Neutrophils/100 WBC (Bld) 85.2 % Critically high 43.0-75.0 [facility] Comment on above: Performed By: #### C BC ####[facility] Nnbznplgju6726[address] [place], [place] [address]DrNeo Smyth Platelet mean volume (Bld) [Entitic vol] 8.9 fL Critically low 9.5-13.5 [facility] Comment on above: Performed By: #### C BC ####[facility] Mmhqczrovy4825 [place], [place] [address]Jd. Tadeo Smyth PLT 331 103/ul Normal 150-450 [facility] Comment on above: Performed By: #### C BC ####[facility] Gdnrpqzwax9822 [place], [place] [address]Mc. Tadeo Smyth RBC 4.01 106/ul Critically low 4.20-5.40 [facility] Comment on above: Performed By: #### C BC ####[facility] Gkxsmxdmbu4454 [place], [place] [address]Wl. Tadeo Smyth WBC 13.7 103/ul Critically high 4.0-11.0 [facility] Comment on above: Performed By: #### C BC ####[facility] Agbnpjsygw2959 [place], [place] [address]Jc. Tadeo Smyth Covid-19 PCR ([facility])on 01-05 SARS-CoV-2 (COVID-19) RNA CHEN+probe Ql (Unsp spec) Not detected Normal NOT DETECTED [facility] Comment on above: Result Comment: When [...] for this test is supported by the [place] of Health and Human Service's declaration that [...] be used). Performed By: #### C VDTBH ####[facility] Dtembyfmrl9197 [place] [address]Dr. Tadeo Smyth LIPASEon 02-02-2022 Lipase [Catalytic activity/Vol] 33.0 U/L Critically low 73.0-393.0 [facility] Comment on above: Performed By: #### C MP, VIJI, LIPA ####[facility] Lzzprwzezv13[address] [place] [address]Dr. Tadeo Smyth MONOon 02-02-2022 Monocytes (Bld) [#/Vol] Negative Normal NEGATIVE [facility] Comment on above: Performed By: #### M JESSICA ####[facility] Vutjczfnmh10[address] [place] [address]Dr. Tadeo Smyth PROF 14(COMP METB)on 022 Albumin [Mass/Vol] 3.1 g/dL Critically low 3.4-5.[address] [facility] Comment on above: Performed By: #### C MP, VIJI, LIPA ####[facility] Zzectkpppk1410 [place] [address]Dr. Tadeo Smyth Albumin/Globulin [Mass ratio] 0.9 {ratio} Normal [facility] Comment on above: Performed By: #### C MP, VIJI, LIPA ####[facility] Kerepugwtt6599 [place] [address]Dr. Tadeo Smyth ALP [Catalytic activity/Vol] 131 U/L Critically high 46-116 [facility] Comment on above: Performed By: #### C MP, VIJI, LIPA ####[facility] Xxxltryskb3778 [place] [address]Dr. Tadeo Smyth ALT [Catalytic activity/Vol] 25 U/L Normal 14-59 [facility] Comment on above: Performed By: #### C MP, VIJI, LIPA ####[facility] Wdhipwqemb3360 [place] [address]Dr. Tadeo Smyth Anion gap [Moles/Vol] 10.0 mmol/L Normal [facility] Comment on above: Performed By: #### C MP, VIJI, LIPA ####[facility] Ossduamjgy9[address] [place] [address]Dr. Tadeo Smyth AST [Catalytic activity/Vol] 19 U/L Normal 15-37 [facility] Comment on above: Performed By: #### C MP, VIJI, LIPA ####[facility] Rsfrlddtic9772 [place] [address]Dr. Tadeo Smyth Bilirubin [Mass/Vol] 0.6 mg/dL Normal 0.2-1.0 [facility] Comment on above: Performed By: #### C MP, VIJI, LIPA ####[facility] Zbupeqeybw99[address] [place], [place] [address]Dr. Tadeo Smyth Calcium [Mass/Vol] 8.2 mg/dL Critically low 8.5-10.1 [facility] Comment on above: Performed By: #### C MP, VIJI, LIPA ####[facility] Rgplzruswa[address] [place], [place] [address]Dr. Tadeo Smyth Chloride [Moles/Vol] 106 mmol/L Normal 98-107 [facility] Comment on above: Performed By: #### C MP, VIJI, LIPA ####[facility] Nbippmjerw4573 [place] [address]Dr. Tadeo Smyth CO2 [Moles/Vol] 25.5 mmol/L Normal 21.0-32.0 [facility] Comment on above: Performed By: #### C MP, VIJI, LIPA ####[facility] Lwdxliqfgx22[address] [place], [place] [address]Dr. Tadeo Smyth Creatinine [Mass/Vol] 0.78 mg/dL Normal 0.55-1.02 [facility] Comment on above: Performed By: #### C MP, VIJI, LIPA ####[facility] Kerfbdwhda73[address] [place] [address]Dr. Tadeo Smyth EGFR-AF KOSOVAN >60 Normal >=60 [facility] Comment on above: Performed By: #### C MP, VIJI, LIPA ####[facility] Tnzxurnsil4771 [place] [address]Dr. Tadeo Smyth EGFR-NON AF KOSOVAN >60 Normal >=60 [facility] Comment on above: Performed By: #### C MP, VIJI, LIPA ####[facility] Otfpoolrlc6[address] [place] [address]Dr. Tadeo Smyth Globulin (S) [Mass/Vol] 3.6 g/dL Normal [facility] Comment on above: Performed By: #### C MP, VIJI, LIPA ####[facility] Upktlbelef3383 [place] [address]Dr. Tadeo Smyth Glucose [Mass/Vol] 110 mg/dL Critically high 74-106 [facility] Comment on above: Performed By: #### C MP, VIJI, LIPA ####[facility] Oqnilnmajm1425 [place] [address]Dr. Tadeo Smyth Potassium [Moles/Vol] 3.5 mmol/L Normal 3.5-5.1 [facility] Comment on above: Performed By: #### C MP, VIJI, LIPA ####[facility] Jqztefwxlx9[address] [place], [place] [address]Dr. Tadeo Smyth Protein [Mass/Vol] 6.7 g/dL Normal 6.4-8.2 [facility] Comment on above: Performed By: #### C MP, VIJI, LIPA ####[facility] Zujmieflbl[address] [place], [place] [address]Dr. Tadeo Smyth Sodium [Moles/Vol] 138 mmol/L Normal 136-145 [facility] Comment on above: Performed By: #### C MP, VIJI, LIPA ####[facility] Rqclyqudvh28[address] [place], [place] [address]Dr. Tadeo Smyth Urea nitrogen [Mass/Vol] 11.0 mg/dL Normal 7.0-18.0 [facility] Comment on above: Performed By: #### C MP, VIJI, LIPA ####[facility] Vrbdmbugrh7[address] [place], [place] [address]Dr. Tadeo Smyth Urea nitrogen/Creatinine [Mass ratio] 14.1 mg/mg Normal [facility] Comment on above: Performed By: #### C MP, VIJI, LIPA ####[facility] Mdrdgrfyti45[address] [place], [place] [address]Dr. Tadeo Symth STREPT SCREENon 02-02-2022 STREP SCREEN A Negative Normal NEGATIVE [facility] Comment on above: Performed By: #### G RASTCX, SSCRN ####[facility] Mgecsnltcb8196 [place], [place] [address]It. Tadeo Smyth BASIC METABOLIC PANELon 08-05 Calcium [Mass/Vol] 8.4 mg/dL Low 8.6-10.3 [facility] Comment on above: Order Comment: No: D o not add to previous draw Performed By: #### 3 966, 08601 #### [facility] [address] [place] [address], [place] Chloride [Moles/Vol] 108 mmol/L High 98-107 [facility] Comment on above: Order Comment: No: D o not add to previous draw Performed By: #### 3 853, [id number] #### [facility] [address] [place] [address], [place] CO2 [Moles/Vol] 26 mmol/L Normal 21-31 [facility] Comment on above: Order Comment: No: D o not add to previous draw Performed By: #### 3 904, 90684 #### [facility] [address] [place] [address], [place] Creatinine [Mass/Vol] 0.79 mg/dL Normal 0.60-1.20 [facility] Comment on above: Order Comment: No: D o not add to previous draw Performed By: #### 3 909, 98961 #### [facility] [address] [place] [address], [place] GFR/1.73 sq M predicted among blacks MDRD (S/P/Bld) [Vol rate/Area] mL/min/{1.73_m2} Normal >60 [facility] Comment on above: Order Comment: No: D o not add to previous draw Performed By: #### 3 674, 07713 #### [facility] [address] [place] [address], [facility] GFR/1.73 sq M predicted among non-blacks MDRD (S/P/Bld) [Vol rate/Area] mL/min/{1.73_m2} Normal >60 [facility] Comment on above: Order Comment: No: D o not add to previous draw Performed By: #### 3 756, 70492 #### [facility] [address] [place] [address], [place] Glucose [Mass/Vol] 98 mg/dL Normal 70-100 [facility] Comment on above: Order Comment: No: D o not add to previous draw Performed By: #### 3 6900, 37427 #### [facility] [address] [place] [address], [place] Potassium [Moles/Vol] 3.5 mmol/L Normal 3.5-5.1 [facility] Comment on above: Order Comment: No: D o not add to previous draw Performed By: #### 3 6900, 89168 #### [facility] [address] [place] [address], [place] Sodium [Moles/Vol] 139 mmol/L Normal 136-145 [facility] Comment on above: Order Comment: No: D o not add to previous draw Performed By: #### 3 722, 65783 #### [facility] [address] [place] [address], [place] Urea nitrogen [Mass/Vol] 11 mg/dL Normal 7-25 [facility] Comment on above: Order Comment: No: D o not add to previous draw Performed By: #### 3 563, 84491 #### [facility] [address] [place] [address], [place] BLOOD STOOL GUAIACon 12-2 019 BLD STOOL GUAIAC Negative Normal NEGATIVE [facility] Comment on above: Order Comment: No: D o not add to previous draw Performed By: #### 3 136, 57170 #### [facility] [address] [facility] [place] [address], [facility] MAGNESIUM BLOODon 08-16-2019 Magnesium [Mass/Vol] 2.0 mg/dL Normal 1.9-2.7 [facility] Comment on above: Order Comment: No: D o not add to previous draw Performed By: #### 3 6901, 29521 #### [facility] [address] [place], [place] [id number] [place] [address] *URINE CULTUREon 08-15-2019 Bacteria identified Cx Nom (U) Clinical Report: (D) Specimen/Source: URINE/MIDSTREAM Collected: 08/15/2019 20:40 Status: Final Last Updated: 08/17/2019 08:05 ISO (Final) Escherichia coli >100,000 Cfu/Ml ISOLATE: Escherichia coli RHONDA (mcg/ml) AMP./SULBAC (AMS) 16/8 Intermediate AMPICILLIN (AM) >16 Resistant AZTREONAM (AZM) <=1 Susceptible CEFAZOLIN (CZ) 2 Susceptible CEFTRIAXONE (WAREHOUSE PRODUCTION WORKER) <=0.5 Susceptible CIPROFLOXACIN (CIP) >2 Resistant ESBL (-/+) (ESBL) Negative GENTAMICIN (GM) <=1 Susceptible NITROFURANTOIN (FT) <=16 Susceptible PIP/TAZO (TZP) 4/4 Susceptible TOBRAMYCIN (TOB) 1 Susceptible TRIMETH/SULFA (SXT) >2/38 Resistant Normal [facility] Comment on above: Performed By: #### 3 6901, 79592 #### [facility] [address] [place], [place] [id number] [place] [address] BASIC METABOLIC PANELon 08-05 Calcium [Mass/Vol] 8.8 mg/dL Normal 8.6-10.3 [facility] Comment on above: Order Comment: No: D o not add to previous draw Performed By: #### 0 0071, 16381, 72605 #### [facility] [address] [facility] [place] [address], [facility] Chloride [Moles/Vol] 107 mmol/L Normal 98-107 [facility] Comment on above: Order Comment: No: D o not add to previous draw Performed By: #### 0 0071, 33969, 36030 #### [facility] [address] [place] [address], [place] CO2 [Moles/Vol] 27 mmol/L Normal 21-31 [facility] Comment on above: Order Comment: No: D o not add to previous draw Performed By: #### 0 0071, 80392, 49013 #### [facility] [address] [place] [address], [place] Creatinine [Mass/Vol] 0.99 mg/dL Normal 0.60-1.20 [facility] Comment on above: Order Comment: No: D o not add to previous draw Performed By: #### 0 0071, 80494, 00990 #### [facility] [address] [place] [address], [place] GFR/1.73 sq M predicted among blacks MDRD (S/P/Bld) [Vol rate/Area] mL/min/{1.73_m2} Normal >60 [facility] Comment on above: Order Comment: No: D o not add to previous draw Performed By: #### 0 0071, 33341, 67857 #### [facility] [address] [place] [address], [place] GFR/1.73 sq M predicted among non-blacks MDRD (S/P/Bld) [Vol rate/Area] 59 ml/min/1.73sq m Abnormal >60 [facility] Comment on above: Order Comment: No: D o not add to previous draw Performed By: #### 0 0071, 19479, 20686 #### [facility] [address] [place] [address], [place] Glucose [Mass/Vol] 100 mg/dL Normal 70-100 [facility] Comment on above: Order Comment: No: D o not add to previous draw Performed By: #### 0 0071, 91400, 61333 #### [facility] [address] [place] [id number], [facility] Potassium [Moles/Vol] 3.6 mmol/L Normal 3.5-5.1 [facility] Comment on above: Order Comment: No: D o not add to previous draw Performed By: #### 0 0071, 79042, 49605 #### [facility] [address] [place] [address], [facility] Sodium [Moles/Vol] 140 mmol/L Normal 136-145 [facility] Comment on above: Order Comment: No: D o not add to previous draw Performed By: #### 0 0071, 92618, 86345 #### [facility] [address] [place] [address], [facility] Urea nitrogen [Mass/Vol] 9 mg/dL Normal 7-25 [facility] Comment on above: Order Comment: No: D o not add to previous draw Performed By: #### 0 0071, 26807, 68574 #### [facility] [address] [place] [id number], [facility] LACTATE BLOODon 08-15-2019 Lactate [Moles/Vol] 0.8 mmol/L Normal 0.5-2.2 [facility] Comment on above: Order Comment: Yes: Add to Previous draw if able Performed By: #### 1 0054 #### [facility] [address] [place] [address], [facility] LMWH HEPARIN ASSAYon 019 LOW MOLECULAR WEIGHT HEPARIN 0.32 IU/mL Low 0.60-1.20 [facility] Comment on above: Order Comment: [...] and LMWH. Performed By: #### 3 6901, 45662 #### [facility] [address] MAGNESIUM BLOODon 08-15-2019 Magnesium [Mass/Vol] 1.7 mg/dL Low 1.9-2.7 [facility] Comment on above: Order Comment: No: D o not add to previous draw Performed By: #### 0 0071, 88982, 71239 #### [facility] [address] PHOSPHORUS BLOODon 9 Phosphate [Mass/Vol] 4.1 mg/dL Normal 2.5-5.0 [facility] Comment on above: Order Comment: No: D o not add to previous draw Performed By: #### 0 0071, 09162, 85626 #### [facility] [address] UGI WITH SMALL BOWELon 08-15 UGI WITH SMALL BOWEL [facility] Department of Radiology [address] [place] [id number] Patient Name: CONSTANTINO CARDOSO : 1970 Sex: F Age: Race: White Pt. Location: [id number] Patient Status: O Ordered Date: 08/15/2019 10:45:00 [...] ischemia. Electronically signed by:Orestes Condon. Transcribed by: [email or web address], User Resident: Electronically Signed by: ORESTES CONDON @ 08/15/2019 04:13 PM Normal [facility] Comment on above: Order Comment: R/O O bstruction URINALYSIS REFLEXon 08-15-20 19 Appearance (U) SL CLOUDY Abnormal CLEAR [facility] Comment on above: Order Comment: No: D o not add to previous drawCriteria for reflexing a culture was met. Urine Culture and sensitivitywill be performed. Performed By: #### 3 6900, 99034 #### [facility] [address] [place] [address], [place] Bilirubin [Mass/Vol] Negative Normal NEGATIVE [facility] Comment on above: Order Comment: No: D o not add to previous drawCriteria for reflexing a culture was met. Urine Culture and sensitivitywill be performed. Performed By: #### 3 690, 72498 #### [facility] [address] [place] [address], [place] BLOOD SMALL Abnormal NEGATIVE [facility] Comment on above: Order Comment: No: D o not add to previous drawCriteria for reflexing a culture was met. Urine Culture and sensitivitywill be performed. Performed By: #### 3 6900, 44975 #### [facility] [address] [place] [address], [facility] Color (U) YELLOW Normal YELLOW [facility] Comment on above: Order Comment: No: D o not add to previous drawCriteria for reflexing a culture was met. Urine Culture and sensitivitywill be performed. Performed By: #### 3 340, 89302 #### [facility] [address] [place] [address], [place] EPIS OCC Normal FEW,OCC,NON E SEEN [facility] Comment on above: Order Comment: No: D o not add to previous drawCriteria for reflexing a culture was met. Urine Culture and sensitivitywill be performed. Performed By: #### 3 295, 51198 #### [facility] [address] [place] [address], [place] Glucose [Mass/Vol] Negative Normal NEGATIVE [facility] Comment on above: Order Comment: No: D o not add to previous drawCriteria for reflexing a culture was met. Urine Culture and sensitivitywill be performed. Performed By: #### 3 741, 01288 #### [facility] [address] HYALINE CASTS 6-10 Abnormal NONE SEEN [facility] Comment on above: Order Comment: No: D o not add to previous drawCriteria for reflexing a culture was met. Urine Culture and sensitivitywill be performed. Performed By: #### 3 6901, 72093 #### [facility] [address] [place] [address], [facility] KETONE Negative Normal NEGATIVE [facility] Comment on above: Order Comment: No: D o not add to previous drawCriteria for reflexing a culture was met. Urine Culture and sensitivitywill be performed. Performed By: #### 3 6901, 72840 #### [facility] [address] [place] [address], [facility] LEUK JONN MODERATE Abnormal NEGATIVE [facility] Comment on above: Order Comment: No: D o not add to previous drawCriteria for reflexing a culture was met. Urine Culture and sensitivitywill be performed. Performed By: #### 3 3751, 68166 #### [facility] [address] [facility] MUCUS THREADS FEW Abnormal NONE SEEN [facility] Comment on above: Order Comment: No: D o not add to previous drawCriteria for reflexing a culture was met. Urine Culture and sensitivitywill be performed. Performed By: #### 3 7611, 54232 #### [facility] [address] [place] [address], [facility] Nitrite Ql (U) Negative Normal NEGATIVE [facility] Comment on above: Order Comment: No: D o not add to previous drawCriteria for reflexing a culture was met. Urine Culture and sensitivitywill be performed. Performed By: #### 3 6901, 07809 #### [facility] [address] [place] [address], [facility] pH (Bld) 5.0 Normal 5.0-8.0 [facility] Comment on above: Order Comment: No: D o not add to previous drawCriteria for reflexing a culture was met. Urine Culture and sensitivitywill be performed. Performed By: #### 3 6901, 96767 #### [facility] [address] [facility]. [address] Protein (U) [Mass/Vol] Negative Normal NEGATIVE [facility] Comment on above: Order Comment: No: D o not add to previous drawCriteria for reflexing a culture was met. Urine Culture and sensitivitywill be performed. Performed By: #### 3 690, 67811 #### [facility] [address] [facility]. [address] RBC (U) [#/Vol] 6-10 Abnormal NONE SEEN [facility] Comment on above: Order Comment: No: D o not add to previous drawCriteria for reflexing a culture was met. Urine Culture and sensitivitywill be performed. Performed By: #### 3 690, 12897 #### [facility] [address] SPEC GRAV 1.025 High 1.015-1.020 [facility] Comment on above: Order Comment: No: D o not add to previous drawCriteria for reflexing a culture was met. Urine Culture and sensitivitywill be performed. Performed By: #### 3 6901, 77429 #### [facility] [address] [facility]. [address] WBC UA 51-100 Abnormal NONE SEEN [facility] Comment on above: Order Comment: No: D o not add to previous drawCriteria for reflexing a culture was met. Urine Culture and sensitivitywill be performed. Performed By: #### 3 6901, 66602 #### [facility] [address] [facility]. [address] CBC COMPLETE BLOOD COUNTon 10-15-2018 Erythrocyte distribution width (RBC) [Ratio] 12.7 % Normal 11.5-15.0 [facility] Comment on above: Order Comment: No: D o not add to previous draw Performed By: #### 5 0608 #### [facility] [address] [place] [address], [facility] Hematocrit (Bld) [Volume fraction] 31.2 % Low 36.0-45.0 [facility] Comment on above: Order Comment: No: D o not add to previous draw Performed By: #### 5 0608 #### [facility] [address] [place] [id number], [facility] Hemoglobin (Bld) [Mass/Vol] 9.8 g/dL Low 12.0-15.0 [facility] Comment on above: Order Comment: No: D o not add to previous draw Performed By: #### 5 0608 #### [facility] [address] [place] [address], [facility] MCH (RBC) [Entitic mass] 29.1 pg Normal 27.0-33.0 [facility] Comment on above: Order Comment: No: D o not add to previous draw Performed By: #### 5 0608 #### [facility] [address] [place] [address], [facility] MCHC (RBC) [Mass/Vol] 31.4 g/dL Low 32.0-35.0 [facility] Comment on above: Order Comment: No: D o not add to previous draw Performed By: #### 5 0608 #### [facility] [address] [place] [address], [facility] MCV (RBC) [Entitic vol] 92.6 fL Normal 82.0-98.0 [facility] Comment on above: Order Comment: No: D o not add to previous draw Performed By: #### 5 0608 #### [facility] [address] [place] [address], [facility] Nucleated RBC/100 WBC (Bld) [Ratio] 0 % Normal 0-0 [facility] Comment on above: Order Comment: No: D o not add to previous draw Performed By: #### 5 0608 #### [facility] [address] [place] [address], [facility] PLAT CNT 340 10*3/uL Normal 150-400 [facility] Comment on above: Order Comment: No: D o not add to previous draw Performed By: #### 5 0608 #### [facility] [address] [place] [address], [facility] RBC (Bld) [#/Vol] 3.37 10*6/uL Low 3.80-5.00 [facility] Comment on above: Order Comment: No: D o not add to previous draw Performed By: #### 5 0608 #### [facility] [address] [place] [address], [facility] WBC (Bld) [#/Vol] 6.04 10*3/uL Normal 4.00-10.60 [facility] Comment on above: Order Comment: No: D o not add to previous draw Performed By: #### 5 0608 #### [facility] [address] PROTHROMBIN TIMEon 12-10-201 9 INR Coag (PPP) [Relative time] 1.09 {INR} Normal 0.91-1.16 [facility] Comment on above: Order Comment: [...] 1995;108:[id number]-246S. Performed By: #### 5 6101 #### [address] PT Coag (PPP) [Time] 14.1 s Normal 12.3-14.8 [facility] Comment on above: Order Comment: No: D o not add to previous draw Result Comment: ALL RESULTS MUST BE INTERPRETED WITH RESPECT TO BLOOD DRAWING ARTIFACT OR DILUTION ERROR OF ANTICOAGULANT AT THE TIME OF SAMPLING. Performed By: #### 5 6101 #### [address] 08-14-2019 [facility] Department of Radiology [address] [place] [id number] Patient Name: CONSTANTINO CARDOSO : 1970 Sex: F Age: Race: White Pt. Location: [id number] Patient Status: O Ordered Date: 08/13/2019 8:30:00 [...] cholecystectomy. Electronically signed by:Orestes Condon. Transcribed by: [email or web address], User Resident: Electronically Signed by: ORESTES CONDON @ 08/14/2019 02:09 PM Normal [facility] Comment on above: Order Comment: R/O S tones BASIC METABOLIC PANELon 12-0 Calcium [Mass/Vol] 9.4 mg/dL Normal 8.6-10.3 [facility] Comment on above: Order Comment: No: D o not add to previous draw Performed By: #### 3 5261, 21433 #### [facility] [address] [place] [address], [place] Chloride [Moles/Vol] 105 mmol/L Normal 98-107 [facility] Comment on above: Order Comment: No: D o not add to previous draw Performed By: #### 3 1571, 43729 #### [facility] [address] [place] [address], [place] CO2 [Moles/Vol] 26 mmol/L Normal 21-31 [facility] Comment on above: Order Comment: No: D o not add to previous draw Performed By: #### 3 0921, 36945 #### [facility] [address] [place] [address], [place] Creatinine [Mass/Vol] 1.03 mg/dL Normal 0.60-1.20 [facility] Comment on above: Order Comment: No: D o not add to previous draw Performed By: #### 3 004, 97995 #### [facility] [address] [place] [address], [place] GFR/1.73 sq M predicted among blacks MDRD (S/P/Bld) [Vol rate/Area] mL/min/{1.73_m2} Normal >60 [facility] Comment on above: Order Comment: No: D o not add to previous draw Performed By: #### 3 6900, 82641 #### [facility] [address] [place] [address], [place] GFR/1.73 sq M predicted among non-blacks MDRD (S/P/Bld) [Vol rate/Area] 57 ml/min/1.73sq m Abnormal >60 [facility] Comment on above: Order Comment: No: D o not add to previous draw Performed By: #### 3 755, 77315 #### [facility] [address] [place] [address], [place] Glucose [Mass/Vol] 96 mg/dL Normal 70-100 [facility] Comment on above: Order Comment: No: D o not add to previous draw Performed By: #### 3 149, 69521 #### [facility] [address] [place] [address], [place] Potassium [Moles/Vol] 4.1 mmol/L Normal 3.5-5.1 [facility] Comment on above: Order Comment: No: D o not add to previous draw Performed By: #### 3 752, 33725 #### [facility] [address] [place] [address], [place] Sodium [Moles/Vol] 138 mmol/L Normal 136-145 [facility] Comment on above: Order Comment: No: D o not add to previous draw Performed By: #### 3 816, 65042 #### [facility] [address] Urea nitrogen [Mass/Vol] 16 mg/dL Normal 7-25 [facility] Comment on above: Order Comment: No: D o not add to previous draw Performed By: #### 3 6901, 55410 #### [facility] [address] CBC W/DIFFon 08-13-2019 ABS BASOPHILS 0.0 10*3/uL Normal 0.0-0.2 [facility] Comment on above: Order Comment: No: D o not add to previous draw Performed By: #### 5 0103 #### [facility] [address] ABS IMM GRANS 0.0 10*3/uL Normal 0.0-0.2 [facility] Comment on above: Order Comment: No: D o not add to previous draw Performed By: #### 5 0103 #### [facility] [address] ABS NEUTROPHILS 4.0 10*3/uL Normal 1.6-7.6 [facility] Comment on above: Order Comment: No: D o not add to previous draw Performed By: #### 5 0103 #### [facility] [address] Basophils/100 WBC (Bld) 0.5 % Normal 0.0-1.0 [facility] Comment on above: Order Comment: No: D o not add to previous draw Performed By: #### 5 0103 #### [facility] [address] [place] [address], [facility] Eosinophils (Bld) [#/Vol] 0.2 10*3/uL Normal 0.0-0.5 [facility] Comment on above: Order Comment: No: D o not add to previous draw Performed By: #### 5 0103 #### [facility] [address] Eosinophils/100 WBC (Bld) 3.3 % Normal 0.0-6.0 [facility] Comment on above: Order Comment: No: D o not add to previous draw Performed By: #### 5 0103 #### [facility] [address] [place] [address], [facility] Erythrocyte distribution width (RBC) [Ratio] 12.7 % Normal 11.5-15.0 [facility] Comment on above: Order Comment: No: D o not add to previous draw Performed By: #### 5 0103 #### [facility] [address] [place] [address], [facility] Hematocrit (Bld) [Volume fraction] 33.4 % Low 36.0-45.0 [facility] Comment on above: Order Comment: No: D o not add to previous draw Performed By: #### 5 0103 #### [facility] [address] [place] [address], [facility] Hemoglobin (Bld) [Mass/Vol] 10.5 g/dL Low 12.0-15.0 [facility] Comment on above: Order Comment: No: D o not add to previous draw Performed By: #### 5 0103 #### [facility] [address] [place] [address], [facility] IMMATURE GRANS 0.2 % Normal 0.0-1.0 [facility] Comment on above: Order Comment: No: D o not add to previous draw Performed By: #### 5 0103 #### [facility] [address] [place] [id number], [facility] Lymphocytes (Bld) [#/Vol] 1.8 10*3/uL Normal 1.2-4.0 [facility] Comment on above: Order Comment: No: D o not add to previous draw Performed By: #### 5 3 #### [facility] [address] [place] [id number], [facility] Lymphocytes/100 WBC (Bld) 28.2 % Normal 20.0-45.0 [facility] Comment on above: Order Comment: No: D o not add to previous draw Performed By: #### 5 0103 #### [facility] [address] [place] [id number], [facility] MCH (RBC) [Entitic mass] 28.9 pg Normal 27.0-33.0 [facility] Comment on above: Order Comment: No: D o not add to previous draw Performed By: #### 5 0103 #### [facility] [address] [place] [address], [facility] MCHC (RBC) [Mass/Vol] 31.4 g/dL Low 32.0-35.0 [facility] Comment on above: Order Comment: No: D o not add to previous draw Performed By: #### 5 0103 #### [facility] [address] [place] [address], [facility] MCV (RBC) [Entitic vol] 92.0 fL Normal 82.0-98.0 [facility] Comment on above: Order Comment: No: D o not add to previous draw Performed By: #### 5 0103 #### [facility] [address] [place] [address], [facility] Monocytes (Bld) [#/Vol] 0.4 10*3/uL Normal 0.1-1.0 [facility] Comment on above: Order Comment: No: D o not add to previous draw Performed By: #### 5 0103 #### [facility] [address] [place] [address], [facility] MONOS 6.2 % Normal 5.0-12.0 [facility] Comment on above: Order Comment: No: D o not add to previous draw Performed By: #### 5 0103 #### [facility] [address] [place] [id number], [facility] Neutrophils/100 WBC (Bld) 61.6 % Normal 40.0-72.0 [facility] Comment on above: Order Comment: No: D o not add to previous draw Performed By: #### [id number] #### [facility] [address] [place] [address], [facility] Nucleated RBC/100 WBC (Bld) [Ratio] 0 % Normal 0-0 [facility] Comment on above: Order Comment: No: D o not add to previous draw Performed By: #### [id number] #### [facility] [address] [place] [address], [facility] PLAT CNT 382 10*3/uL Normal 150-400 [facility] Comment on above: Order Comment: No: D o not add to previous draw Performed By: #### [id number] #### [facility] [address] [place] [address], [facility] RBC (Bld) [#/Vol] 3.63 10*6/uL Low 3.80-5.00 [facility] Comment on above: Order Comment: No: D o not add to previous draw Performed By: #### [id number] #### [facility] [address] [place] [address], [facility] WBC (Bld) [#/Vol] 6.45 10*3/uL Normal 4.00-10.60 [facility] Comment on above: Order Comment: No: D o not add to previous draw Performed By: #### [id number] #### [facility] [address] [place] [address], [facility] LIPASE BLOODon 08-13-2019 Lipase [Catalytic activity/Vol] 13 Units/L Normal 11-82 [facility] Comment on above: Performed By: #### [id number] #### [facility] [address] [place] [address], [facility] Vital Signs Date Time Vital Sign Value Performing Clinician Facility 08-30-2024 07:25-0500 Body temperature 97.9 [degF] Pete Otto MD Work Phone: [facility] [employer] 08-30-2024 07:25-0500 Diastolic blood pressure 89 mm[Hg] Pete Otto MD Work Phone: [facility] [employer] 08-30-2024 07:25-0500 Heart rate 61 /min Pete Otto MD Work Phone: [facility] [employer] 08-30-2024 07:25-0500 Respiratory rate 16 /min Pete Otto MD Work Phone: [facility] [employer] 08-30-2024 07:25-0500 SaO2% (BldA) [Mass fraction] 96 % Pete Otto MD Work Phone: [facility] [employer] 08-30-2024 07:25-0500 Systolic blood pressure 144 mm[Hg] Pete Otto MD Work Phone: [facility] [employer] 08-28-2024 16:30-0500 Body height 170.2 cm Pete Otto MD Work Phone: [facility] [employer] 08-28-2024 16:30-0500 Body mass index (BMI) [Ratio] 28.82 kg/m2 Pete Otto MD Work Phone: [facility] [employer] 08-28-2024 16:30-0500 Body weight 83.5 kg Pete Otto MD Work Phone: [facility] [employer] 08-17-2024 13:40-0500 Body temperature 97.7 [degF] Justin Lucero MD Work Phone: [employer] 08-17-2024 13:40-0500 Diastolic blood pressure 89 mm[Hg] Justin Lucero MD Work Phone: [employer] 08-17-2024 13:40-0500 Heart rate 68 /min Justin Lucero MD Work Phone: [facility] [employer] 08-17-2024 13:40-0500 Respiratory rate 12 /min Justin [facility] MD [facility]: [facility] 08-17-2024 13:40-0500 SaO2% (BldA) [Mass fraction] 99 % Justin Lucero MD Work Phone: [facility] 08-17-2024 13:40-0500 Systolic blood pressure 159 mm[Hg] Justin Lucero MD Work Phone: [facility] [place] 08-17-2024 11:29-0500 Body height 170.2 cm Justin Lucero MD Work Phone: [facility] [employer] 08-17-2024 11:29-0500 Body mass index (BMI) [Ratio] 29.75 kg/m2 Justin Lucero MD Work Phone: [facility] [employer] [facility] [place] 08-17-2024 11:29-0500 Body weight 86.18 kg [facility] 07-13-2024 11:29-0500 Body height 170.2 cm Kulwant Hodge MD Work Phone: [facility] 07-13-2024 11:29-0500 Body mass index (BMI) [Ratio] 29.44 kg/m2 Kulwant Hodge MD Work Phone: [facility] 07-13-2024 11:29-0500 Body weight 85.28 kg Kulwant Hodge MD Work Phone: [facility] 07-13-2024 11:29-0500 Diastolic blood pressure 70 mm[Hg] Kulwant Hodge MD Work Phone: [facility] 07-13-2024 11:29-0500 Heart rate 68 /min Kulwant Hodge MD Work Phone: [facility] Comment on above: 02 SAT 96% 07-13-2024 11:29-0500 Respiratory rate 16 /min Kulwant Hodge MD Work Phone: [facility] 07-13-2024 11:29-0500 Systolic blood pressure 116 mm[Hg] Kulwant Hodge MD Work Phone: [facility] 06-20-2024 11:08-0400 Body height 170.2 cm Kulwant Hodge MD Work Phone: [facility] 06-20-2024 11:08-0400 Body mass index (BMI) [Ratio] 28.98 kg/m2 Kulwant Hodge MD Work Phone: [facility] 06-20-2024 11:08-0400 Body weight 83.92 kg Kulwant Hodge MD Work Phone: [facility] 06-20-2024 11:08-0400 Diastolic blood pressure 92 mm[Hg] Kulwant Hodge MD Work Phone: [facility] 06-20-2024 11:08-0400 Heart rate 62 /min Kulwant Hodge MD Work Phone: [facility] 06-20-2024 11:08-0400 Respiratory rate 16 /min Kulwant Hodge MD Work Phone: [facility] 06-20-2024 11:08-0400 Systolic blood pressure 140 mm[Hg] Kulwant Hodge MD Work Phone: [facility] 05-11-2024 10:50-0400 Diastolic blood pressure 80 mm[Hg] BOY'S ADVISER-C Judi Youssef Work Phone: [facility] 05-11-2024 10:50-0400 Heart rate 67 /min [employer] Judi Youssef Work Phone: [facility] 05-11-2024 10:50-0400 Respiratory rate 16 /min [employer]Y'S ADVISER-Paula Youssef Work Phone: [facility] 05-11-2024 10:50-0400 SaO2% (BldA) [Mass fraction] 100 % BOY'S ADVISER-Paula Youssef Work Phone: [facility] 05-11-2024 10:50-0400 Systolic blood pressure 130 mm[Hg] BOY'S ADVISER-C Judi Youssef Work Phone: [facility] 05-11-2024 08:23-0400 Body height 170.18 cm [employer]-C Judi Youssef Work Phone: [facility] 05-11-2024 08:23-0400 Body weight 81.64 kg [employer] ADVISER-C Judi Youssef Work Phone: [facility] 04-26-2024 08:27-0400 Body height 170.18 cm [facility] 04-26-2024 08:27-0400 Body mass index (BMI) [Ratio] 28.5 kg/m2 [facility] 04-26-2024 08:27-0400 Body weight 82.55 kg [facility] 04-26-2024 08:27-0400 Diastolic blood pressure 82 mm[Hg] [facility] 04-26-2024 08:27-0400 Heart rate 59 /min [facility] 04-26-2024 08:27-0400 Systolic blood pressure 132 mm[Hg] [facility] 02-16-2024 09:03-0400 Blood Pressure Location Yolanda Orzech [facility] 02-16-2024 09:03-0400 Body temperature 97.7 [degF] Yolanda Orzech [facility] 02-16-2024 09:03-0400 Diastolic blood pressure 84 mm[Hg] Yolanda Orzech [facility] 02-16-2024 09:03-0400 Heart rate 78 /min Yolanda Orzech [facility] 02-16-2024 09:03-0400 Systolic blood pressure 128 mm[Hg] Yolanda Orzech [facility] 07-22-2023 13:19-0500 Body height 170.[address] Work Phone: [facility] 07-22-2023 13:19-0500 Body weight 83.[address] Work Phone: [facility] 07-14-2023 11:40-0500 Diastolic blood pressure 95 mm[Hg] Marques Bradley MD Work Phone: [facility] 07-14-2023 11:40-0500 Heart rate 56 /min Marques Bradley MD Work Phone: [facility] 07-14-2023 11:40-0500 Respiratory rate 16 /min Marques Bradley MD Work Phone: [facility] 07-14-2023 11:40-0500 SaO2% (BldA) [Mass fraction] 97 % Marques Bradley MD Work Phone: [facility] 07-14-2023 11:40-0500 Systolic blood pressure 158 mm[Hg] Marques Bradley MD Work Phone: [facility] 07-14-2023 11:10-0500 Body temperature 97.2 [degF] Marques Bradley MD Work Phone: [facility] 07-14-2023 08:34-0500 Body height 170.2 cm Marques Bradley MD Work Phone: [facility] 07-14-2023 08:34-0500 Body weight 88 kg Marques Bradley MD Work Phone: [facility] 04-21-2023 09:30-0400 Body height 170.18 cm Renny Omalley Other [employer] Other 04-21-2023 09:30-0400 Body mass index (BMI) [Ratio] 31.21 kg/m2 Renny Omalley Other [employer] Other 04-21-2023 09:30-0400 Body weight 90.4 kg Renny Omalley Other [facility] [employer] Other 04-21-2023 09:30-0400 Diastolic blood pressure 78 mm[Hg] Renny Omalley Other [facility] [employer] Other 04-21-2023 09:30-0400 Systolic blood pressure 130 mm[Hg] Renny Omalley Other [facility] [employer] Other 03-23-2023 07:33-0400 Diastolic blood pressure 80 mm[Hg] BOY'S ADVISER-C Judi Mikael Work Phone: [facility] 03-23-2023 07:33-0400 Heart rate 81 /min [employer]C Judi Mikael Work Phone: [facility] 03-23-2023 07:33-0400 Respiratory rate 14 /min [employer] ADVIS[employer]-C Judi Mikael Work Phone: [facility] 03-23-2023 07:33-0400 SaO2% (BldA) [Mass fraction] 95 % [employer]Y'[employer] ADVISER-C Judi Mikael Work Phone: [facility] 03-23-2023 07:33-0400 Systolic blood pressure 171 mm[Hg] BOY'S ADVISER-C Judi Mikael Work Phone: [facility] 03-23-2023 06:20-0400 Body height 170.18 cm [employer]Y'[employer] ADVISER-C Judi Mikael Work Phone: [facility] 03-23-2023 06:20-0400 Body temperature 97.4 [degF] BOY'S ADVISER-C Judi Mikael Work Phone: [facility] 03-23-2023 06:20-0400 Body weight 90 kg [employer] ADVISER-C Judi Mikael Work Phone: [facility] 02-19-2023 00:53-0400 Body temperature 96.98 [degF] Kaylinn Dokken [facility] 02-19-2023 00:53-0400 Diastolic blood pressure 99 mm[Hg] Franklinylinn Dokken [facility] 02-19-2023 00:53-0400 Heart rate 75 /min Franklinylinn Dokken [facility] 02-19-2023 00:53-0400 Respiratory rate 16 /min Khrisinn Dokken [facility] 02-19-2023 00:53-0400 SaO2% (BldA) [Mass fraction] 98 % Khrisinn Dokken [facility] 02-19-2023 00:53-0400 Systolic blood pressure 153 mm[Hg] Khrisinn Dokken [facility] 02-15-2023 10:33-0400 Diastolic blood pressure 89 mm[Hg] BOY'S ADVISER-C Judi Mikael Work Phone: [facility] 02-15-2023 10:33-0400 SaO2% (BldA) [Mass fraction] 100 % BOY'S ADVISER-C Judi Mikael Work Phone: [facility] 02-15-2023 10:33-0400 Systolic blood pressure 149 mm[Hg] BOY'S ADVISER-C Judi Mikael Work Phone: [facility] 02-15-2023 10:00-0400 Heart rate 83 /min BOY'S ADVISER-C Judi Mikael Work Phone: [facility] 02-15-2023 10:00-0400 Respiratory rate 16 /min BOY'S ADVISER-C Judi Mikael Work Phone: [facility] 02-15-2023 08:06-0400 Body height 170.18 cm BOY'S ADVISER-C Judi Mikael Work Phone: [facility] 02-15-2023 08:06-0400 Body temperature 97.6 [degF] BOY'S ADVISER-C Judi Mikael Work Phone: [facility] 02-15-2023 08:06-0400 Body weight 89.2 kg BOY'S ADVISER-C Judi Mikael Work Phone: [facility] 10-26-2022 08:03-0500 Diastolic blood pressure 87 mm[Hg] BOY'S ADVISER-C Judi Mikael Work Phone: [facility] 10-26-2022 08:03-0500 Heart rate 70 /min BOY'S ADVISER-C Judi Mikael Work Phone: [facility] 10-26-2022 08:03-0500 Respiratory rate 18 /min BOY'S ADVISER-C Judi Mikael Work Phone: [facility] 10-26-2022 08:03-0500 SaO2% (BldA) [Mass fraction] 98 % BOY'S ADVISER-C Judi Mikael Work Phone: [facility] 10-26-2022 08:03-0500 Systolic blood pressure 161 mm[Hg] BOY'S ADVISER-C Judi Mikael Work Phone: [facility] 10-26-2022 06:17-0500 Body height 170.18 cm BOY'S ADVISER-C Judi Mikael Work Phone: [facility] 10-26-2022 06:17-0500 Body temperature 97.2 [degF] BOY'S ADVISER-C Judi Mikael Work Phone: [facility] 10-26-2022 06:17-0500 Body weight 88.9 kg BOY'S ADVISER-C Judi Mikael Work Phone: [facility] 07-22-2022 14:34-0500 Diastolic blood pressure 83 mm[Hg] Ospina SALAM [facility] 07-22-2022 14:34-0500 Mean blood pressure 101 mm[Hg] Ospina SALAM [facility] 07-22-2022 14:34-0500 Systolic blood pressure 136 mm[Hg] Ospina SALAM [facility] 07-22-2022 14:30-0500 Blood Pressure Location Ospina SALAM [facility] 07-22-2022 14:30-0500 Diastolic blood pressure 89 mm[Hg] Ospina SALAM [facility] 07-22-2022 14:30-0500 Heart rate 62 /min Ospina SALAM [facility] 07-22-2022 14:30-0500 Respiratory rate 16 /min Ospina SALAM [facility] 07-22-2022 14:30-0500 SaO2% (BldA) [Mass fraction] 98 % Ospina SALAM [facility] 07-22-2022 14:30-0500 Systolic blood pressure 141 mm[Hg] Opsina SALAM [facility] 04-14-2022 14:50-0400 Blood Pressure Location Moniquejuan luis ReddyJimmy [facility] 04-14-2022 14:50-0400 Body temperature 97.16 [degF] Moniquejuan luis ReddyJimmy [facility] 04-14-2022 14:50-0400 Diastolic blood pressure 86 mm[Hg] Monique Jimmy [facility] 04-14-2022 14:50-0400 Heart rate 72 /min Moniquejuan luis ReddyJimmy [facility] 04-14-2022 14:50-0400 SaO2% (BldA) [Mass fraction] 97 % Monique Marquez [facility] 04-14-2022 14:50-0400 Systolic blood pressure 131 mm[Hg] Moniquejuan luis ReddyJimmy [facility] 01-28-2022 13:36-0400 Blood Pressure Location Moniquejuan luis Marquez [facility] 01-28-2022 13:36-0400 Body temperature 97.52 [degF] Monique Reddymetz [facility] 01-28-2022 13:36-0400 Diastolic blood pressure 85 mm[Hg] Monique Castañedaz [facility] 01-28-2022 13:36-0400 Heart rate 73 /min Monique Marquez [facility] 01-28-2022 13:36-0400 SaO2% (BldA) [Mass fraction] 96 % Moniquejuan luis Casatñedaz [facility] 01-28-2022 13:36-0400 Systolic blood pressure 122 mm[Hg] Moniquejuan luis ReddyJimmy [facility] 01-11-2022 10:15-0400 Blood Pressure Location Ospina MemoirAM [facility] 01-11-2022 10:15-0400 Diastolic blood pressure 106 mm[Hg] Ospina SALAM [facility] 01-11-2022 10:15-0400 Heart rate 70 /min Ospina SALAM [facility] 01-11-2022 10:15-0400 Respiratory rate 28 /min Ospina SALAM [facility] 01-11-2022 10:15-0400 SaO2% (BldA) [Mass fraction] 99 % Ospina SALAM [facility] 01-11-2022 10:15-0400 Systolic blood pressure 137 mm[Hg] Ospina SALAM [facility] 01-11-2022 10:05-0400 Blood Pressure Location Ospina SALAM [facility] 01-11-2022 10:05-0400 Diastolic blood pressure 74 mm[Hg] Ospina SALAM [facility] 01-11-2022 10:05-0400 Heart rate 67 /min Ospina SALAM [facility] 01-11-2022 10:05-0400 Respiratory rate 14 /min Ospina SALAM [facility] 01-11-2022 10:05-0400 SaO2% (BldA) [Mass fraction] 97 % Ospina SALAM [facility] 01-11-2022 10:05-0400 Systolic blood pressure 128 mm[Hg] Ospina SALAM [facility] 01-11-2022 10:00-0400 Blood Pressure Location Ospina SALAM [facility] 01-11-2022 10:00-0400 Diastolic blood pressure 79 mm[Hg] Ospina SALAM [facility] 01-11-2022 10:00-0400 Heart rate 66 /min Ospina SALAM [facility] 01-11-2022 10:00-0400 Respiratory rate 16 /min Ospina SALAM [facility] 01-11-2022 10:00-0400 SaO2% (BldA) [Mass fraction] 98 % Ospina SALAM [facility] 01-11-2022 10:00-0400 Systolic blood pressure 134 mm[Hg] Ospina SALAM [facility] 01-11-2022 09:50-0400 Body temperature 97.52 [degF] Ospina SALAM [facility] 01-11-2022 09:45-0400 Respiratory rate 15 /min Ospina SALAM [facility] 01-11-2022 09:18-0400 Body temperature 97.34 [degF] Ospina SALAM [facility] 01-11-2022 09:18-0400 Respiratory rate 20 /min Ospina SALAM [facility] Encounters Encounter Date Encounter Type Care Provider Facility Start: 08-28-2024 End: 08-30-2024 Evaluation and management of inpatient Pete Otto MD Work Phone: [facility] Comment on above: Ileus (HCC) (Primary Dx); Generalized abdominal pain; Hypokalemia Start: 08-17-2024 End: 08-17-2024 ambulatory JUSTIN LUCERO [facility] Start: 08-17-2024 End: 08-17-2024 Subsequent hospital visit by physician Justin Lucero MD Work Phone: [facility] Comment on above: Other dysphagia (Apple alfonzo Dx) Start: 07-13-2024 End: 07-13-2024 Bamboo flowsheet Kulwant Hodge MD Work Phone: [facility] Start: 07-13-2024 End: 07-13-2024 Bamboo flowsnidhi Hodge MD Work Phone: [facility] Start: 07-13-2024 End: 07-13-2024 Office outpatient visit 25 minutes Kulawnt Hodge MD Work Phone: [facility] Comment on above: Hypoglycemia Start: 07-13-2024 End: 07-13-2024 ambulatory KULWANT HODGE Not Available Start: 06-20-2024 End: 06-20-2024 Bamboo flowsnidhi Hodge MD Work Phone: [facility] Start: 06-20-2024 End: 06-20-2024 Sil Hodge MD Work Phone: [facility] Start: 06-20-2024 End: 06-20-2024 ambulatory KULWANT HODGE Not Available Start: 06-20-2024 End: 06-20-2024 Office outpatient new 45 minutes Kulwant Hodge MD Work Phone: [facility] Comment on above: Hypoglycemia (Primar y Dx); Encounter for dietary consultation Start: 06-19-2024 End: 06-19-2024 Patient encounter procedure BOY'S ADVISER-C Judi Youssef Work Phone: [facility] Work Phone: Start: 06-19-2024 End: 06-19-2024 ambulatory Judi Youssef Facility:[facility] Start: 06-07-2024 End: 06-07-2024 ambulatory Yolanda Lou Facility:[facility] Start: 06-07-2024 End: 06-07-2024 Patient encounter procedure Yolanda X Jonesch [facility] Start: 05-14-2024 End: 05-14-2024 ambulatory [facility] Start: 05-11-2024 Non-patient / Non-visit BOY'S ADVISER-C Cesia Youssef Work Phone: [facility] Gastroenterology Work Phone: Start: 05-11-2024 End: 05-11-2024 Admission to same day surgery center BOY'S ADVISER-C Judi Youssef Work Phone: [facility] Work Phone: Start: 05-11-2024 End: 05-11-2024 ambulatory BOY'S ADVISER-C Judi Youssef Work Phone: [facility] Work Phone: Start: 04-26-2024 End: 04-26-2024 ambulatory [facility] Work Phone: Start: 04-26-2024 End: 04-26-2024 Patient encounter procedure [facility] Gastroenterology Work Phone: Start: 04-13-2024 Non-patient / Non-visit BOY'S ADVISER-C Cesia Youssef Work Phone: [facility] Phys[facility] Work Phone: Start: 03-19-2024 End: 03-19-2024 ambulatory [facility] Start: 02-16-2024 End: 02-16-2024 ambulatory Yolanda X Orzech Facility:[facility] Start: 02-16-2024 End: 02-16-2024 Lab Drop off Yolanda X Orzech [facility] Start: 02-16-2024 End: 02-16-2024 ambulatory Yolanda X Orzech Facility: [place] Start: 02-16-2024 End: 02-16-2024 Patient encounter procedure Yolanda X Orzech [facility] Start: 02-15-2024 End: 02-15-2024 ambulatory [facility] Start: 12-01-2023 ambulatory [facility] Ambulatory [facility] Start: 08-25-2023 End: 08-25-2023 ambulatory [facility] Facility:[facility] Start: 07-29-2023 Orders Only Evelyn Black RN Gen eral Surgery Comment on above: Gastroparesis (Prima ry Dx) Start: 07-22-2023 End: 07-22-2023 ambulatory MARQUES BRADLEY Facility:[facility] Start: 07-22-2023 Telephone encounter Evelyn Black RN General Surgery Start: 07-22-2023 End: 07-22-2023 Nutrition therapy Melissa Montalvo RD Work Phone: General Surgery Comment on above: Gastroparesis (Prima ry Dx); Malnutrition of moderate degree (HCC); Gastro-esophageal reflux disease without esophagitis; Overweight (BMI 25.0-29.9); Dietary counseling and surveillance Start: 07-22-2023 End: 07-22-2023 Telemedicine consultation with patient Melissa Katia ALBRECHT Work Phone: [facility] Start: 07-14-2023 End: 07-14-2023 ambulatory MARQUES BRADLEY Facility:[facility] Start: 07-14-2023 End: 07-14-2023 Subsequent hospital visit by physician Marques Bradley MD Work Phone: Gastroenterology Comment on above: Dysphagia, unspecifi ed type [R13.10] Start: 07-13-2023 End: 07-13-2023 ambulatory MARQUES BRADLEY Facility:[facility] Start: 06-06-2023 End: 06-06-2023 ambulatory [facility] Facility:[facility] Start: 05-27-2023 Telephone encounter Evelyn Black RN General Surgery Comment on above: Results Start: 05-26-2023 End: 05-26-2023 ambulatory MARQUES BRADLEY Facility:[facility] Start: 05-25-2023 End: 05-25-2023 ambulatory [facility] Facility:[facility] Start: 05-25-2023 End: 05-25-2023 Nursing evaluation of patient and report Nurse [facility] 2 Work Phone: Gastroenterology Comment on above: Nausea Start: 05-16-2023 Orders Only Evelyn Black RN Gen eral Surgery Comment on above: Nausea (Primary Dx); Dysphagia, unspecified type Start: 05-06-2023 End: 05-07-2023 ambulatory MARQUES BRADLEY Facility:[facility] Start: 05-02-2023 Telephone encounter Evelyn Black RN General Surgery Start: 04-26-2023 Telephone encounter Evelyn Black RN General Surgery Start: 04-21-2023 End: 04-21-2023 ambulatory Renny Omalley Other [employer] Other Start: 04-21-2023 Office outpatient vi sit 15 minutes Renny Omalley [facility] Start: 04-18-2023 Telephone encounter Evelyn Black RN General Surgery 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 Start: 04-07-2023 Telephone encounter Guillermo Martinez DO Work Phone: Gastroenterology Comment on above: Appointment Start: 04-05-2023 End: 04-05-2023 ambulatory Imad Asaad Other [employer] Other Start: 04-05-2023 Telephone encounter Imad Asaad [facility] Start: 03-29-2023 ambulatory Facility:U Start: 03-26-2023 ambulatory Facility:[id number] Start: 03-26-2023 ambulatory Facility:[id number] Start: 03-24-2023 End: 03-24-2023 ambulatory Imad Asaad Other [employer] Other Start: 03-24-2023 Telephone encounter Imad Asaad [facility] Start: 03-23-2023 End: 03-23-2023 Emergency department patient visit DONI Youssef Work Phone: [facility] Work Phone: Start: 03-22-2023 End: 03-22-2023 ambulatory Imad Asaad Other [employer] Other Start: 03-22-2023 Telephone encounter Imad Asaad [facility] Start: 03-09-2023 End: 03-09-2023 ambulatory Imad Asaad Other [employer] Other Start: 03-09-2023 Telephone encounter Imad Asaad [facility] Start: 03-01-2023 End: 03-01-2023 ambulatory Imad Asaad Other [employer] Other Start: 03-01-2023 Telephone encounter Imad Asaad [facility] Start: 02-19-2023 End: 02-19-2023 Emergency department patient visit Zabrina Patton [facility] Start: 02-15-2023 End: 02-15-2023 Emergency department patient visit [employer] Judi Youssef Work Phone: [facility] Work Phone: Start: 11-30-2022 End: 12-01-2022 ambulatory JUDIMATTY COLLIERMER Facility:H1 Start: 11-27-2022 End: 11-28-2022 ambulatory JUDI MIKAEL Facility:H1 Start: 11-26-2022 End: 11-26-2022 ambulatory Imad Asaad Other [employer] Other Start: 11-26-2022 Telephone encounter Imad Asaad [facility] Start: 11-04-2022 End: 11-04-2022 Admission to same day surgery center [employer] Judi Youssef Work Phone: [facility] [place] Work Phone: Start: 11-04-2022 End: 11-04-2022 ambulatory [employer] Judi Joan Mikael Work Phone: [facility] Work Phone: Start: 11-01-2022 End: 11-02-2022 ambulatory JUDI YOUSSEF Facility:H1 Start: 10-26-2022 End: 10-26-2022 Emergency department patient visit [employer] Judi Youssef Work Phone: [facility] Work Phone: Start: 09-21-2022 End: 09-21-2022 ambulatory JUDI YOUSSEF Facility:H1 Start: 09-18-2022 End: 09-18-2022 ambulatory BALTAZAR GEORGES . Facility:H1 Start: 09-14-2022 End: 09-14-2022 ambulatory EUN WILSON . Facility:H1 Start: 09-07-2022 End: 09-07-2022 ambulatory Jennie Ayon Other [place] [employer] Other Start: 09-07-2022 Telephone encounter Jennie Ayon [facility] Start: 09-06-2022 End: 09-07-2022 ambulatory JUDI YOUSSEF Facility:H1 Start: 08-20-2022 End: 08-20-2022 ambulatory BALTAZAR GEORGES . Facility:H1 Start: 08-17-2022 End: 08-18-2022 ambulatory JUDI YOUSSEF Facility:H1 Start: 08-11-2022 End: 08-12-2022 ambulatory JUDI YOUSSEF Facility:H1 Start: 08-08-2022 End: 08-08-2022 ambulatory KATHRIN VANCE Facility:H1 Start: 07-22-2022 End: 07-22-2022 Patient encounter procedure Anai FORBES [facility] Start: 07-21-2022 End: 07-21-[address] NORA WINN Facility:H1 Start: 07-15-2022 ambulatory JUDI YOUSSEF Facility: H1 Start: 07-12-2022 Encounter for genera l adult medical examination without abnormal findings JUDI [facility] Start: 07-08-2022 End: 07-09-2022 ambulatory JUDI [...] Start: 04-29-2022 End: 04-29-2022 Lab Drop off Ospinanoemi FORBES [facility] Start: 04-14-2022 End: 04-14-2022 Patient encounter procedure Monique Marquez [facility] Start: 03-27-2022 End: 03-30-2022 Evaluation and management of inpatient SHAIKH Juan Luis DAVIS Facility:H1 Start: 03-01-2022 End: 03-01-2022 Patient encounter procedure Monique Marquez [facility] Start: 02-02-2022 End: 02-02-2022 ambulatory BALTAZAR GEORGES . Facility:H1 Start: 01-28-2022 End: 01-28-2022 Patient encounter procedure Monique Marquez [facility] Start: 01-11-2022 End: 01-11-2022 Patient encounter procedure Anai FORBES [facility] Start: 12-24-2021 End: 12-24-2021 Patient encounter procedure JHOANA MELGOZA [facility] Start: 08-13-2019 End: 08-16-2019 Evaluation and management of inpatient LEONA MORTENSEN Facility:[facility] Procedures Date Procedure Procedure Detail Performing Clinician Start: 08-30-2024 Glucose blood reagent strip Obdulio Muro i, MD Work Phone: Start: 08-30-2024 Glucose blood reagent strip Obdulio Muro i, MD Work Phone: Start: 08-30-2024 BASIC METABOLIC PANEL W/ REFLEX TO MG FOR LOW K Amr Alexandria Mclaughlin MD Work Phone: Start: 08-30-2024 Blood count complete auto&auto difrntl wbc Chad Mclaughlin MD Work Phone: Start: 08-30-2024 Glucose blood reagent strip Obdulio Muro i, MD Work Phone: Start: 08-29-2024 Glucose blood reagent strip Obdulio Muro i, MD Work Phone: Start: 08-29-2024 Glucose blood reagent karl Muro i, MD Work Phone: Start: 08-29-2024 Glucose blood reagent karl Muro i, MD Work Phone: Start: 08-29-2024 Glucose blood reagent karl Muro i, MD Work Phone: Start: 08-29-2024 Radiologic exam abdomen 1 view Nena Nicole MD Work Phone: Start: 08-29-2024 Assay of magnesium Chad Mclaughlin MD Work Phone: Start: 08-29-2024 BASIC METABOLIC PANEL W/ REFLEX TO MG FOR LOW K Chad Mclaughlin MD Work Phone: Start: 08-28-2024 Glucose blood reagent strip Obdulio Muro i, MD Work Phone: Start: 08-28-2024 Assay of magnesium Chad Mclaughlin MD Work Phone: Start: 08-28-2024 End: 08-28-2024 Comprehensive metabolic panel Ventura Anaya MD Work Phone: Start: 08-28-2024 Radiologic exam abdomen 1 view Nena Nicole MD Work Phone: Start: 07-13-2024 Gluc bld gluc mntr dev cleared fda spec home use Kulwant Hodge MD Work Phone: Start: 06-20-2024 Gluc bld gluc mntr dev cleared fda spec home use Kulwant Hodge MD Work Phone: Start: 05-11-2024 Esophagogastroduodenoscopy [employer] Judi morales Work Phone: Start: 07-14-2023 Esophagoscp rig transoral hypopharynx crv esoph Evelyn Black RN Start: 05-25-2023 Esophageal motility study w/interp&rpt Evelyn Black RN Start: 03-23-2023 Computed tomography of abdomen and pelvis with contrast [employer] Judi Mikael Work Phone: Start: 02-15-2023 Computed tomography of abdomen and pelvis with contrast [employer] Judi Mikael Work Phone: Start: 11-04-2022 CT of small intestine [employer] Judi Mikael Work Phone: Start: 10-26-2022 Computed tomography of abdomen and pelvis with contrast [employer] Judi Mikael Work Phone: Start: 01-11-2022 Esophagogastroduodenoscopy Anai FORBES Start: 05-13-2021 Esophagogastroduodenoscopy JHOANA Vázquez Start: 09-30-2020 Esophagogastroduodenoscopy JHOANA Vázquez Start: 03-13-2020 Colonoscopy Kulwatn Hodge MD Work Phone: Start: 03-13-2020 Colonoscopy JHOANA MELGOZA Start: 01-30-2020 Esophagogastroduodenoscopy JHOANA Vázquez Start: 08-15-2019 FLUOROSCOPY OF UPPER GI AND SMALL BOWEL USING OTHER CONTRAST ORESTES CONDON Start: 05-17-2019 Colonoscopy JHOANA MELGOZA Start: 05-17-2019 Esophagogastroduodenoscopy JHOANA Vázquez Start: 03-02-2019 Hernia surgical mesh (physical object) JHOANA MELGOZA Comment on above: Dr. Mortensen in [place]. Hernia repair JHOANA MELGOZA Hysterectomy JHOANA MELGOZA Plan of Treatment Date Care Activity Detail Author Start: 03-13-2030 Screening for malignant neoplasm of colon [facility] Start: 11-29-2024 End: 11-29-2024 Patient encounter procedure 11/29/2024 11:00 AM EDT Office Visit [facility] [address] [place] [address] Kulwant Hodge MD [address] [place] [address] [facility] Start: 08-31-2024 End: 08-30-2025 Basic metabolic 2000 panel - Serum or Plasma Basic Metabolic Panel Lab Routine Ileus (HCC) Generalized abdominal pain Hypokalemia Expected: 08/31/2024, Expires: 08/30/2025 [employer] Comment on above: Expected: 08/31/2024, Expires: Start: 08-31-2024 End: 08-30-2025 Magnesium [Mass/volume] in Serum or Plasma Magnesium Lab Routine Ileus (HCC) Generalized abdominal pain Hypokalemia Expected: 08/31/2024, Expires: 08/30/2025 [employer] Comment on above: Expected: 08/31/2024, Expires: Start: 08-17-2024 End: 08-17-2025 Radiologic exam swallow function contrast study FL MODIFIED BARIUM SWALLOW W VIDEO Imaging Routine Other dysphagia Expected: 08/17/2024, Expires: 08/17/2025 [facility] Comment on above: Expected: 08/17/2024, Expires: Start: 08-17-2024 End: 08-17-2024 Egd transoral biopsy single/multiple ESOPHAGOGASTRODUODENOSCOPY BIOPSY Other dysphagia 08/17/2024 12:58 PM [facility] Start: 07-13-2024 End: 07-13-2024 Patient encounter procedure [facility] Comment on above: Arrived Start: 06-22-2024 Shingles vaccine (2 of 2) Shingles vaccine (2 of 2) [facility] Start: 06-20-2024 End: 06-20-2025 Basic metabolic 1998 panel - Serum or Plasma Basic metabolic panel Lab Routine Hypoglycemia Expected: 06/20/2024 (Approximate), Expires: 06/20/2025 [facility] Comment on above: Expected: 06/20/2024 (Approximate), Expi res: 06/20/2025 Start: 06-20-2024 End: 06-20-2025 C peptide [Mass/volume] in Serum or Plasma --fasting C PEPTIDE FASTING Lab Routine Hypoglycemia Expected: 06/20/2024 (Approximate), Expires: 06/20/2025 [facility] Work Phone: Comment on above: Expected: 06/20/2024 (Approximate), Expi res: 06/20/2025 Start: 06-20-2024 End: 06-20-2025 Hepatic function 2000 panel - Serum or Plasma Hepatic function panel Lab Routine Hypoglycemia Expected: 06/20/2024 (Approximate), Expires: 06/20/2025 [facility] Comment on above: Expected: 06/20/2024 (Approximate), Expi res: 06/20/2025 Start: 06-20-2024 End: 06-20-2025 Insulin, fasting Insulin, fasting Lab Routine Hypoglycemia Expected: 06/20/2024 (Approximate), Expires: 06/20/2025 [facility] Comment on above: Expected: 06/20/2024 (Approximate), Expi res: 06/20/2025 Start: 06-20-2024 End: 06-20-2025 Insulin-like growth factor 2 Insulin-like growth factor 2 Lab Routine Hypoglycemia Expected: 06/20/2024 (Approximate), Expires: 06/20/2025 [facility] Comment on above: Expected: 06/20/2024 (Approximate), Expi res: 06/20/2025 Start: 06-20-2024 End: 06-20-2025 Proinsulin Proinsulin Lab Routine Hypoglycemia Expected: 06/20/2024 (Approximate), Expires: 06/20/2025 [facility] Comment on above: Expected: 06/20/2024 (Approximate), Expi res: 06/20/2025 Start: 05-11-2024 [facility] Start: 05-06-2024 COVID-19 Vaccine ( season) COVID-19 Vaccine ( season) [facility] Start: 05-06-2024 Influenza vaccination Influenza Vaccine (#1) [facility] Start: 04-05-2024 Influenza vaccination Flu vaccine (#1) [facility] Start: 05-06-2023 Covid-19 Vaccine ( season) Covid-19 Vaccine ( season) [facility] Start: 05-06-2023 Influenza vaccination [facility] Start: 09-05-2022 DEPRESSION ASSESSMENT DEPRESSION ASSESSMENT [facility] Start: 01-01-2022 COVID-19 VACCINE (4 - Pfizer series) COVID-19 VACCINE (4 - Pfizer series) [facility] Start: 2020 SHINGRIX VACCINE (1 of 2) SHINGRIX VACCINE (1 of 2) [facility] Start: 2015 COLOGUARD (FIT-DNA) COLOGUARD (FIT-DNA) [facility] Start: 2015 Colonoscopy COLONOSCOPY [facility] Start: 2015 COLORECTAL CANCER SCREENING COLORECTAL CANCER SCREENING [facility] Start: [address] COLONOGRAPHY [facility] Start: 2015 DIABETES SCREEN DIABETES SCREEN [facility] Start: 2015 Diabetes Screening Diabetes Screening [facility] Start: 2015 FECAL OCCULT BLOOD FECAL OCCULT BLOOD [facility] Start: 2015 Lipid 1996 panel - Serum or Plasma Lipid Screening [facility] Start: 2015 LIPID SCREEN LIPID SCREEN [facility] Start: 2015 Screening for malignant neoplasm of colon [facility] Start: 2015 SIGMOIDOSCOPY SIGMOIDOSCOPY [facility] Start: 2010 Lipid panel Lipids [facility] Start: 2010 Mammography [facility] Start: 2010 Screening for malignant neoplasm of breast [facility] Start: 2005 Diabetes screen Diabetes screen [facility] Start: 2000 HPV TESTING HPV TESTING [facility] Start: 2000 Screening for malignant neoplasm of cervix [facility] Start: 1991 PAP TESTING PAP TESTING [facility] Start: 1991 Screening for malignant neoplasm of cervix Pap Smear [facility] Start: 1989 DTaP/Tdap/Td vaccine (1 - Tdap) DTaP/Tdap/Td vaccine (1 - Tdap) [facility] Start: 1989 Hepatitis B vaccine (1 of 3 - 19+ 3-dose series) Hepatitis B vaccine (1 of 3 - 19+ 3-dose series) [facility] Start: 1989 Urine microalbumin profile [facility] Start: 1988 HEPATITIS C SCREENING HEPATITIS C SCREENING [facility] Start: 1988 Hepatitis C screening Hepatitis C screen [facility] Start: 1988 HIV SCREENING HIV SCREENING [facility] Start: 1985 HIV screening HIV screen [facility] Start: 1982 Depression Monitoring Depression Monitoring [facility] Start: 1982 Depression Screen Depression Screen [facility] Start: 1970 COVID-19 VACCINE (#1) COVID-19 VACCINE (#1) [facility] Start: 1970 HEPATITIS B (1 of 3 - 3-dose series) HEPATITIS B (1 of 3 - 3-dose series) [facility] Start: 1970 Hepatitis B Vaccine (1 of 3 - 3-dose series) Hepatitis B Vaccine (1 of 3 - 3-dose series) [facility] Start: 1970 Screening for malignant neoplasm of colon [facility] End: 09-18-2024 Basic Metabolic Panel w/ Reflex to MG Basic Metabolic Panel w/ Reflex to MG Lab Routine Daily for 3 Weeks starting 08/29/2024 until 09/18/2024, 2 completed [employer] Comment on above: Daily for 3 Weeks starting 08/29/2024 un til 09/18/2024, 2 completed End: 09-18-2024 CBC W Auto Differential panel - Blood CBC with Auto Differential Lab Routine Daily for 3 Weeks starting 08/29/2024 until 09/18/2024, 2 completed [employer] Comment on above: Daily for 3 Weeks starting 08/29/2024 un til 09/18/2024, 2 completed End: 07-29-2024 EGD - THERAPEUTIC, EUS, OR TUBE INTERVENTIONS EGD - THERAPEUTIC, EUS, OR TUBE INTERVENTIONS Endoscopy Routine Gastroparesis 1 Occurrences starting 07/29/2023 until 07/29/2024 [facility] Work Phone: Comment on above: 1 Occurrences starting 07/29/2023 until 07/29/2024 End: 05-16-2024 Esophageal motility study w/interp&rpt MANOMETRY ESOPHAGEAL Endoscopy Routine Nausea 1 Occurrences starting 05/16/2023 until 05/16/2024 [facility] Work Phone: Comment on above: 1 Occurrences starting 05/16/2023 until 05/16/2024 Esophageal motility study w/interp&rpt MANOMETRY ESOPHAGEAL Endoscopy Routine Nausea 05/25/2023 [facility] Work Phone: End: 06-14-2024 Gastric emptying imaging study NM GASTRIC EMPTYING SOLID Radiology Routine Nausea 1 Occurrences starting 05/16/2023 until 06/14/2024 [facility] Work Phone: Comment on above: 1 Occurrences starting 05/16/2023 until 06/14/2024 Glucose [Mass/volume] in Serum or Plasma POCT glucose Point of Care Testing Routine 4X Daily until discontinued starting 08/28/2024 [employer] Comment on above: 4X Daily until discontinued starting Oxygen therapy [Minimum Data Set] Initiate Oxygen Therapy Protocol Respiratory Care Routine As Needed until discontinued starting 08/17/2024 [employer] Work Phone: Comment on above: As Needed until discontinued starting Oxygen therapy [Minimum Data Set] Initiate Oxygen Therapy Protocol Respiratory Care Routine As Needed until discontinued starting 08/28/2024 [facility] [employer] [facility] Work Phone: Comment on above: As Needed until discontinued starting Patient Education [facility] Work Phone: Patient referral [facility] Work Phone: SURGICAL PATHOLOGY [facility] Work Phone: Comment on above: Release Upon Ordering for 1 Occurrences starting 07/14/2023, 1 completed [facility] Immunizations Immunization Date Immunization Notes Care Provider [facility] 04-27-2024 zoster vaccine recombinant Kulwant Hodge MD Work Phone: [facility] 06-15-2022 SARS-CoV-2 (COVID-19 ) [id number] Yolanda Goldman [facility] 06-09-2022 influenza, seasonal, injectable Kulwant Hodge MD Work Phone: [facility] 06-09-2022 influenza virus vaccine, unspecified formulation Nurse 2 Work Phone: [facility] 03-18-2022 SARS-CoV-2 mRNA (qtdlctysysi-emoc-swm jett) vaccine Ospina SALAM [facility] 11-06-2021 SARS-CoV-2 (COVID-19 ) mRNA BNT-162b2 vax Ospina SALAM [facility] 05-06-2021 influenza virus vaccine, unspecified formulation JHOANA MELGOZA [facility] 02-26-2021 SARS-CoV-2 (COVID-19 ) mRNA BNT-162b2 vax JHOANA MELGOZA [facility] 02-05-2021 SARS-CoV-2 (COVID-19 ) mRNA BNT-162b2 vax Anai FORBES [facility] Comment on above: Result Comment: 2021: [id number] NEGATED: Highlighted row has not occurred!04-14-2022 influenza virus vaccine, unspecified formulation Monique Marquez [facility] Payers Date Payer Category Payer Blue Cross Blue Shield BCBS [id number] 2022 Unknown RINA MARTINEZ SS PPO [id number] 2022-Present [phone] [address] [place] [address] PPO [id number] 2018 Private Health Insurance [id number] 2018 Private Health Insurance [facility] CHOICE PLUS [id number] 2018-Present [phone] [address] [place] [address] HMO [id number] 1970 Unknown [id number] 2.16.840.1.699229.3.579.2 .647 1970 Unknown [id number] 2.16.840.1.821944.3.579.2 .593 1970 Unknown [id number] 2.16.840.1.705832.3.579.2 .593 1970 Unknown [id number] 2.16.840.1.410439.3.579.2 .593 1970 Unknown [id number] 2.16.840.1.010989.3.579.2 .593 1970 Unknown [id number] 2.16.840.1.937690.3.579.2 .593 1970 Unknown [id number] 2.16.840.1.672603.3.579.2 .593 1970 Unknown [id number] 2.16.840.1.707448.3.579.2 .593 1970 Unknown [id number] 2.16.840.1.506287.3.579.2 .593 1970 Unknown [id number] 2.16.840.1.590315.3.579.2 .593 1970 Unknown [id number] 2.16.840.1.026724.3.579.2 .593 1970 Unknown [id number] 2.16.840.1.257319.3.579.2 .593 1970 Unknown [id number] 2.16.840.1.714487.3.579.2 .593 1970 Unknown [id number] 2.16.840.1.678173.3.579.2 .593 1970 Unknown [id number] 2.16.840.1.829403.3.579.2 .593 1970 Unknown [id number] 2.16.840.1.476380.3.579.2 .593 1970 Unknown [id number] 2.16.840.1.401785.3.579.2 .593 1970 Unknown [id number] 2.16.840.1.168425.3.579.2 .593 1970 Unknown [id number] 2.16.840.1.860591.3.579.2 .593 1970 Unknown [id number] 2.16.840.1.506668.3.579.2 .593 1970 Unknown [id number] 2.16.840.1.240321.3.579.2 .593 1970 Unknown [id number] 2.16.840.1.092356.3.579.2 .356 1970 Unknown [id number] 2.16.840.1.196131.3.579.2 .356 1970 Unknown [id number] 2.16.840.1.618952.3.579.2 .1286 1970 Unknown [id number] 2.16.840.1.159740.3.579.2 .1286 1970 Unknown [id number] 2.16.840.1.800693.3.579.2 .1286 1970 Unknown [id number] 2.16.840.1.376875.3.579.2 .1286 1970 Unknown [id number] 2.16.840.1.409759.3.579.2 .727 1970 Unknown [id number] 2.16.840.1.001606.3.579.2 .727 1970 Unknown [id number] 2.16.840.1.919150.3.579.2 .727 1970 Unknown [id number] 2.16.840.1.090916.3.579.2 .727 1970 Unknown [id number] 2.16.840.1.627543.3.579.2 .1259 1970 Unknown [id number] 2.16.840.1.168649.3.579.2 .1259 1970 Unknown [id number] 2.16.840.1.662321.3.579.2 .176 1970 Unknown [id number] 2.16.840.1.563425.3.579.2 .175 1959 Medicaid [id number] 1959 Self-pay [id number] 1959 Unknown [id number] 1959 Unknown [id number] Medicare Medicare [id number] Medicare Medicare [id number] Unknown [id number] 2.16.840.1.389513.3.579.2 .531 Unknown [id number] 2.16.840.1.999161.3.579.2 .531 Worker's Compensation Industrial Self Ins [facility] [id number] Social History Date Type Detail Facility Start: 12-03-2021 End: 08-15-2024 Tobacco smoking status Ex-smoker (finding) [facility] Start: 08-12-2020 End: 08-28-2024 Sex Assigned At Female [facility] Tobacco smoking status Never [facility] Start: 1970 Sex Assigned At Female [facility] End: 09-05-2011 History of tobacco use Current smoker [facility] Work Phone: End: 09-05-2011 History of tobacco use Cigarette Smoker [facility] Work Phone: Start: 04-28-2018 End: 08-15-2024 Tobacco use and exposure Smokeless tobacco non-user [facility] Work Phone: Start: 04-28-2018 End: 08-28-2024 Alcohol intake Current drinker of alcohol (finding) [facility] Start: 08-12-2020 End: 08-28-2024 History of Social function [facility] Start: 04-28-2018 End: 05-06-2023 Tobacco Comment still smokes [facility] Start: 04-28-2018 Alcohol Comment social [facility] Start: 1970 Sex Assigned At Not on file [facility] Start: 07-14-2023 Alcohol intake Ex-drinker (finding) [facility] Start: 06-08-[address] [facility] Never smoked tobacco [facility] Start: 07-13-2024 Alcoholic beverage intake Lifetime non-drinker (finding) [facility] Start: 08-15-2024 Alcohol Comment Rare [employer] [facility] Has the [employer], [employer], [employer], or water [employer] threatened to shut off services in your home in past 12Mo No [employer] How often to you hav e a drink containing alcohol? Never [employer] (I/We) worried whevalerie er (my/our) food would run out before (I/we) got money to buy more. Never true [employer] Goals Date Patient Goal Desired Activity /State Functional Status Date Assessment Result Facility 02-16-2024 Functional Status N/A [facility] 02-19-2023 Functional Status N/A [facility] 07-22-2022 Functional Status N/A [facility] 04-14-2022 Functional Status N/A [facility] Clinical Notes 12-02-2021 to 08-30-2024 Jermain Renee RN - 08/30/2024 4:18 PM Serge Echeverria MD - 08/30/2024 6:45 AM Sumeet Garcia PT - 08/29/2024 10:11 AM Jose Juan Tolentino MD - 08/29/2024 6:40 AM ESTAttachments Note Date & Type Note Facility 08-30-2024 History of Present illness Narrative Discharge instructions given to pt, verbalized understanding, all questions answered, pt discharged home per ambulatory with discharge scripts. Images from the original note were not included. PROGRESS NOTE PATIENT NAME: Constantino Cardoso DATE: 08/30/2024 HD: # 2 DIAGNOSIS AND PLAN Large bowel obstruction vs ileus vs constipation Having bowel function. Patient clinically improved. Tolerating clear liquids. Advance to regular diet. General surgery signed off this time. Please contact with any further questions or concerns. Chief Complaint: I feel better SUBJECTIVE Patient seen and examined at bedside. No acute overnight events. Patient having bowel function. Denies nausea, vomiting. Tolerating clear liquids. Will advance to regular diet. OBJECTIVE VITALS: Vitals: 08/29/242008 BP: (!) 142/94 Pulse: 65 Resp: 18 Temp: 98.6 F (37 C) SpO2: 98% Physical Exam Vitals and nursing note reviewed. Constitutional: General: She is not in acute distress. Appearance: Normal appearance. HENT: Head: Normocephalic and atraumatic. Nose: Nose normal. Mouth/Throat: Mouth: Mucous membranes are moist. Pharynx: Oropharynx is clear. Eyes: Extraocular Movements: Extraocular movements intact. Cardiovascular: Rate and Rhythm: Normal rate and regular rhythm. Pulmonary: Effort: Pulmonary effort is normal. No respiratory distress. Breath sounds: No stridor. No wheezing. Abdominal: General: There is no distension. Palpations: Abdomen is soft. Tenderness: There is no abdominal tenderness. There is no guarding or rebound. Musculoskeletal: General: Normal range of motion. Cervical back: Normal range of motion. Skin: General: Skin is warm and dry. Neurological: General: No focal deficit present. Mental Status: She is alert and oriented to person, place, and time. I/O last 3 completed shifts: In: 2342.5 [P.O.:800; I.V.:1342.5; IV Piggyback:200] Out: 450 [Emesis/NG output:450] No intake/output data recorded. ] LAB: CBC: Recent Labs 08/28/24 1232 08/29/24 0453 08/30/24 0508 WBC 8.9 5.7 5.4 HGB 11.9 11.2* 11.5* HCT 37.2 35.8* 37.4 MCV 92.3 93.2 93.5 PLT 359 318 321 BMP: Recent Labs 08/28/24 1232 08/29/24 0453 08/30/24 0508 NA 138 140 140 K 4.3 3.4* 3.8 CL 104 106 105 CO2 24 BUN 9 9 5* CREATININE 0.7 0.7 0.8 GLUCOSE 115* 100* 107* RADIOLOGY: XR ABDOMEN (KUB) (SINGLE AP VIEW) Result Date: 08/29/2024 1. Moderate gaseous distention of the rectal vault. Gas and stool in the rectal vault. 2. Mild stool burden. No abnormally dilated small bowel loops. 3. NG tube distal tip overlying the medial right upper quadrant likely in the antrum of the stomach. XR ABDOMEN (KUB) (SINGLE AP VIEW) Result Date: 08/28/2024 1. Nonobstructive bowel gas pattern. 2. Mild left lower lobe infiltrate, which could represent pneumonia. Kaitlyn Romero DO 08/30/2024, 6:45 AM Attestation signed by Serge Wild MD I personally evaluated the patient and directed the medical decision making with Resident after the physical/radiologic exam and laboratory values were reviewed and confirmed. Serge Wild MD Physical Therapy Facility/Department: [facility] RENAL//MED SURG Physical Therapy Initial Assessment Name: Constantino Cardoso : 1970 Date of Service: 08/29/2024 Discharge Recommendations: No therapy recommended at discharge Patient Diagnosis(es): The encounter diagnosis was Ileus (HCC). Past Medical History: has a past medical history of Hypertension. Past Surgical History: has a past surgical history that includes Hysterectomy, total abdominal; hiatal hernia repair; Cholecystectomy; and Upper gastrointestinal endoscopy (N/A, 08/17/2024). Assessment Assessment: Demonstrates safe activity, no need for skilled PT, Please re-consult if there is change in mobility later on during her stay here. Pt educated that she can up be in the hallway, but has to get clearance from RN first. Pt acknowledges understanding. Decision Making: Low Complexity Requires PT Follow-Up: Yes Plan Physical Therapy Plan General Plan: Discharge with evaluation only Safety Devices Type of Devices: Call light within reach, Bed alarm in place, Left in bed, Nurse notified Restrictions Restrictions/Precautions Restrictions/Precautions: Fall Risk Activity Level: Up with Assist Position Activity Restriction Other Position/Activity Restrictions: NG tube to suction Subjective General Patient assessed for rehabilitation services?: Yes Additional Pertinent Hx: Pt presents with a chief complaint of abdominal pain and nausea and vomiting. Patient informs that she has had recurrent episodes of ileus -approximately around 5. This episode started with mild epigastric abdominal pain at home a week ago. Pain continued along with gradual worsening of abdominal distention. She did open her bowels 2 days ago - formed stool and small amount this morning. 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 She started feeling dizzy and also started to have nausea. She vomited 3 times this morning. She continues to feel nauseous but has not vomited any further. She continues to pass significant amount of flatus. CT scan at the outlying facility reported her surgery and she was transferred for surgical evaluation to [facility]. She had x-ray KUB and was removed by general surgery in the ER. She has been started on section through NG tube and enema. Patient denies experiencing fever, chest pain, shortness of breath, cough, cold, headache, neurological symptoms, urinary symptoms, abnormal genital discharge/bleeding. Referral Date : 08/29/24 Diagnosis: Intestinal obstruction Follows Commands: Within Functional Limits Subjective Subjective: OK per RN april to see the pt, she clamped NG tube for mobility training, NG back to suction after mobility. Social/Functional History Social/Functional History Lives With: Spouse Type of Home: House Home Layout: Two level, Able to Live on Main level with bedroom/bathroom Home Access: Stairs to enter with rails, Stairs to enter without rails Entrance Stairs - Number of Steps: 3 steps Bathroom Shower/Tub: Tub/Shower unit, Curtain Bathroom Toilet: Standard Bathroom Equipment: Hand-held shower Bathroom Accessibility: Accessible Home Equipment: None Has the patient had two or more falls in the past year or any fall with injury in the past year?: Yes (1 Month ago, no injureis) Prior Level of Assist for ADLs: Independent Prior Level of Assist for Homemaking: Independent Prior Level of Assist for Ambulation: Independent household ambulator, with or without device, Independent community ambulator, with or without device Prior Level of Assist for Transfers: Independent Active Glass Beveler: Yes Mode of Transportation: Car 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 [employer] Comments: Sleeps in a flat bed at home Additional Comments: Pt /spouse share all home making chores at home Vision/Hearing Vision Vision: Impaired Vision Exceptions: Wears glasses for reading Hearing Hearing: Within functional limits Cognition Orientation Overall Orientation Status: Within Functional Limits Cognition Overall Cognitive Status: WFL Objective Temp: 97.5 F (36.4 C) Pulse: 60 Heart Rate Source: Monitor Respirations: 18 SpO2: 97 % O2 Device: None (Room air) BP: (!) 145/78 MAP (Calculated): 100 BP Location: Right upper arm BP Method: Automatic Patient Position: Semi fowlers Observation/Palpation Observation: NG tube to suction AROM RLE (degrees) RLE AROM: WFL AROM LLE (degrees) LLE AROM : WFL Strength RLE Strength RLE: WFL Strength LLE Strength LLE: WFL Sensation Overall Sensation Status: WFL (Reports no numbness or tingling) Bed mobility Supine to Sit: Independent Sit to Supine: Independent Scooting: Independent Transfers Sit to Stand: Independent Stand to Sit: Independent Ambulation Surface: Level tile Device: No Device Assistance: Independent Quality of Gait: No gait deviation, no dizzyness, steady gait Distance: 300ft Balance Posture: Good Sitting - Static: Good Sitting - Dynamic: Good Standing - Static: Good Standing - Dynamic: Good;- OutComes Score AM-PAC - Mobility AM-PAC Basic Mobility - Inpatient How much help is needed turning from your back to your side while in a flat bed without using bedrails?: None How much help is needed moving from lying on your back to sitting on the side of a flat bed without using bedrails?: None How much help is needed moving to and from a bed to a chair?: None How much help is needed standing up from a chair using your arms?: None How much help is needed walking in hospital room?: None How much help is needed climbing 3-5 steps with a railing?: None AM-PAC Inpatient Mobility Raw Score : 24 AM-PAC Inpatient T-Scale Score : 61.14 Mobility Inpatient CMS 0-100% Score: 0 Mobility Inpatient CMS G-Code Modifier : CH Tinneti Score Goals Short Term Goals Time Frame for Short Term Goals: NA Education Patient Education Education Given To: Patient Education Provided: Role of Therapy;Plan of Care;Precautions Education Provided Comments: No need for skilled PT Education Method: Verbal Education Outcome: Verbalized understanding Therapy Time Individual Concurrent Group Co-treatment Time In 0900 Time Out 0926 Minutes 26 Timed Code Treatment Minutes: 10 Minutes Sumeet Mayberry PT Images from the original note were not included. [facility] Internal Medicine Teaching Residency Program Inpatient Daily Progress Note Patient: Constantino Cardoso Date of : 1970 Acct: [id number] Room: 0324/0324-01 Admit date: 08/28/2024 Today's date: 08/29/24 Number of days in the hospital: 1 SUBJECTIVE Admitting Diagnosis: Intestinal obstruction (HCC) CC: abdominal pain and nausea/vomiting Pt examined at bedside. Chart & results reviewed. Vital stable and afebrile Bowels opened in the ER yesterday NG in situ and on suction - small amount of drainage Overall feeling better but still having mild epigastric pain Labs normal except K 3.4 - replaced ROS: Constitutional: negative for chills, fevers, sweats Respiratory: negative for cough, dyspnea on exertion, hemoptysis, shortness of breath, wheezing Cardiovascular: negative for chest pain, chest pressure/discomfort, lower extremity edema, palpitations Gastrointestinal: negative for abdominal pain, constipation, diarrhea, nausea, vomiting Neurological: negative for dizziness, headache BRIEF HISTORY The patient is a pleasant 54 y.o. female with a PMHx significant for Multiple episodes of ileus Hysterectomy Cholecystectomy Hiatal hernia repair Hypertension Gastroparesis and dysphagia - G-POEM at [facility] in 08/27 Mitral valve prolapse GERD Migraines and severe obeisty - s/p [id number] 2018 presents with a chief complaint of abdominal pain and nausea and vomiting. Patient informs that she has had recurrent episodes of ileus -approximately around 5. This episode started with mild epigastric abdominal pain at home a week ago. Pain continued along with gradual worsening of abdominal distention. She did open her bowels 2 days ago - formed stool and small amount this morning. 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 She started feeling dizzy and also started to have nausea. She vomited 3 times this morning. She continues to feel nauseous but has not vomited any further. She continues to pass significant amount of flatus. CT scan at the outlying facility reported her surgery and she was transferred for surgical evaluation to [facility]. She had x-ray KUB and was removed by general surgery in the ER. She has been started on section through NG tube and enema. Patient denies experiencing fever, chest pain, shortness of breath, cough, cold, headache, neurological symptoms, urinary symptoms, abnormal genital discharge/bleeding. On my assessment, patient is generally stable but continues to complain of headache and ongoing nausea. Vitals are stable and has not opened her bowels yet. OBJECTIVE Vital Signs: BP 129/76 Pulse 66 Temp 98.4 F (36.9 C) (Oral) Resp 16 Ht 1.702 m (5' 7.01 ) Wt 83.5 kg (184 lb 1.4 oz) SpO2 95% BMI 28.82 kg/m Temp (24hrs), Av.4 F (36.9 C), Min:98.2 F (36.8 C), Max:98.5 F (36.9 C) In: 964.5 Out: - Physical Exam: Constitutional: This is a well developed, well nourished, 25-29.9 - Overweight 54 y.o. year old female who is alert, oriented, cooperative and in no apparent distress. Head:normocephalic and atraumatic. EENT: PERRLA. No conjunctival injections. Septum was midline, mucosa was without erythema, exudates or cobblestoning. No thrush was noted. Neck: Supple without thyromegaly. No elevated JVP. Trachea was midline. Respiratory: Chest was symmetrical without dullness to percussion. Breath sounds bilaterally were clear to auscultation. There were no wheezes, rhonchi or rales. There is no intercostal retraction or use of accessory muscles. No egophony noted. Cardiovascular: Regular without murmur, clicks, gallops or rubs. Abdomen: Slightly rounded and soft without organomegaly. No rebound, rigidity or guarding was appreciated. Lymphatic: No lymphadenopathy. Musculoskeletal: Normal curvature of the spine. No gross muscle weakness. Extremities: No lower extremity edema, ulcerations, tenderness, varicosities or erythema. Muscle size, tone and strength are normal. No involuntary movements are noted. Skin: Warm and dry. Good color, turgor and pigmentation. No lesions or scars. No cyanosis or clubbing Neurological/Psychiatric: The patient's general behavior, level of consciousness, thought content and emotional status is normal. Medications: Scheduled Medications: [Held by provider] metoprolol succinate 50 mg Oral Daily [Held by provider] lisinopril 10 mg Oral QAM [Held by provider] sertraline 50 mg Oral Daily sodium chloride flush 5-40 mL IntraVENous 2 times per day enoxaparin 40 mg SubCUTAneous Daily pantoprazole (PROTONIX) 40 mg in sodium chloride (PF) 0.9 % 10 mL injection 40 mg IntraVENous Daily Continuous Infusions: sodium chloride dextrose 5 % and 0.9 % NaCl 50 mL/hr at 08/29/24 0628 PRN Medicationslabetalol, 10 mg, Q6H PRN sodium chloride flush, 5-40 mL, PRN sodium chloride, , PRN potassium chloride, 40 mEq, PRN Or potassium alternative oral replacement, 40 mEq, PRN Or potassium chloride, 10 mEq, PRN magnesium sulfate, 2,000 mg, PRN ondansetron, 4 mg, Q8H PRN Or ondansetron, 4 mg, Q6H PRN polyethylene glycol, 17 g, Daily PRN acetaminophen, 650 mg, Q6H PRN Or acetaminophen, 650 mg, Q6H PRN ketorolac, 30 mg, Q6H PRN Diagnostic Labs: CBC: Recent Labs 08/28/24 1232 08/29/24 0453 WBC 8.9 5.7 RBC 4.03 3.84* HGB 11.9 11.2* HCT 37.2 35.8* MCV 92.3 93.2 RDW 13.1 13.1 PLT 359 318 BMP: Recent Labs 08/28/24 1232 08/29/24 0453 NA 138 140 K 4.3 3.4* CL 104 106 CO2 23 22 PHOS -- 4.0 BUN 9 9 CREATININE 0.7 0.7 BNP: No results for input(s): BNP in the last 72 hours. PT/INR: No results for input(s): PROTIME , INR in the last 72 hours. APTT: No results for input(s): APTT in the last 72 hours. CARDIAC ENZYMES: No results for input(s): CKMB , CKMBINDEX , TROPONINI in the last 72 hours. Invalid input(s): CKTOTAL;3 FASTING LIPID PANEL:No results found for: CHOL , HDL , TRIG LIVER PROFILE: Recent Labs 08/28/24 1232 AST 23 ALT 14 BILITOT 0.2 ALKPHOS 162* MICROBIOLOGY: No results found for: CULTURE Imaging: XR ABDOMEN (KUB) (SINGLE AP VIEW) Result Date: 08/28/2024 1. Nonobstructive bowel gas pattern. 2. Mild left lower lobe infiltrate, which could represent pneumonia. ASSESSMENT & PLAN ASSESSMENT / PLAN: IMPRESSION This is a 54 y.o. female with a PMHx significant for recurrent episodes of ileus who presented with abdominal pain/distention and nausea/vomiting and found to have ileus. Principal Problem: Intestinal obstruction (HCC) CT scan at [facility] -dilated large bowel with air-fluid level Transferred to [facility] -x-ray KUB: Nonobstructive bowel gas pattern, mild left lower lobe infiltrate WBC 8.9, Alk.p 162 - rest of labs unremarkable Reviewed by surgery and ER - no acute surgical intervention, and Suds enema Suggest CT abdo/pelvis with oral contrast if unable to have bowel movement Continue NG with suction and IV fluids Continue PRN anti-emetics Repeat enema and laxatives - glycolax and senokot-docusate PRN pain relief - Tylenol and Toradol - monitor kidney function Hypertension: Normally on lisinopril 10 mg daily - resume Latest BP 145/78 Hypokalemia: Potassium 3.4 Replaced Recheck with BMP tomorrow GERD: Continue protonix 40 mg daily - IV for now Switch to oral once not NPO anymore Depression: Continue sertraline 50 mg daily DVT ppx: Lovenox GI ppx: Protonix PT/OT/SW - not indicated Discharge Planning: Once ileus resolves Jose Juan Dhaliwal MD Internal Medicine Resident, PGY-1 [facility]; [place], [place] 08/29/2024, 6:54 AM Associated attestation - Obdulio Justice MD - 08/29/2024 3:40 PM EST Attending Physician Statement I have discussed the care of Constantino Cardoso, including pertinent history and exam findings, with the resident. I have seen and examined the patient and the cottrell elements of all parts of the encounter have been performed by me. I agree with the assessment, plan and orders as documented by the resident with additions . Please note that this chart was generated using voice recognition [employer] dictation software. Although every effort was made to ensure the accuracy of this automated supervisor chlorine liquefaction, some errors in supervisor chlorine liquefaction may have occurred. Images from the original note were not included. PROGRESS NOTE PATIENT NAME: Constantino Cardoso DATE: 08/29/2024 HD: # 1 DIAGNOSIS AND PLAN Large bowel obstruction vs ileus vs constipation Bowel movement after enema yesterday NG tube to low intermittent wall suction. 300 mL output over the last 24 hours. Patient clinically improved. Clamp NG tube and initiate clear liquids around tube. Recommend bowel regimen Chief Complaint: I feel better SUBJECTIVE Patient seen and examined at bedside. No acute overnight events. Patient had enema yesterday, and reports large bowel movement following enema. Denies abdominal pain, nausea, vomiting. 300 mL of output from NG tube over the last 24 hours. OBJECTIVE VITALS: Vitals: 08/29/24 0400 BP: Pulse: 66 Resp: Temp: SpO2: Physical Exam Vitals and nursing note reviewed. Constitutional: General: She is not in acute distress. Appearance: Normal appearance. HENT: Head: Normocephalic and atraumatic. Nose: Nose normal. Mouth/Throat: Mouth: Mucous membranes are moist. Pharynx: Oropharynx is clear. Eyes: Extraocular Movements: Extraocular movements intact. Cardiovascular: Rate and Rhythm: Normal rate and regular rhythm. Pulmonary: Effort: Pulmonary effort is normal. No respiratory distress. Breath sounds: No stridor. No wheezing. Abdominal: General: There is no distension. Palpations: Abdomen is soft. Tenderness: There is no abdominal tenderness. There is no guarding or rebound. Musculoskeletal: General: Normal range of motion. Cervical back: Normal range of motion. Skin: General: Skin is warm and dry. Neurological: General: No focal deficit present. Mental Status: She is alert and oriented to person, place, and time. I/O last 3 completed shifts: In: 964.5 [I.V.:964.5] Out: - I/O this shift: In: - Out: 300 [Emesis/NG output:300] ] LAB: CBC: Recent Labs 08/28/24 1232 08/29/24 0453 WBC 8.9 5.7 HGB 11.9 11.2* HCT 37.2 35.8* MCV 92.3 93.2 PLT 359 318 BMP: Recent Labs 08/28/24 1232 08/29/24 0453 NA 138 140 K 4.3 3.4* CL 104 106 CO2 23 22 BUN 9 9 CREATININE 0.7 0.7 GLUCOSE 115* 100* RADIOLOGY: XR ABDOMEN (KUB) (SINGLE AP VIEW) Result Date: 08/29/2024 1. Moderate gaseous distention of the rectal vault. Gas and stool in the rectal vault. 2. Mild stool burden. No abnormally dilated small bowel loops. 3. NG tube distal tip overlying the medial right upper quadrant likely in the antrum of the stomach. XR ABDOMEN (KUB) (SINGLE AP VIEW) Result Date: 08/28/2024 1. Nonobstructive bowel gas pattern. 2. Mild left lower lobe infiltrate, which could represent pneumonia. Kaitlyn Romero, 08/29/2024, 6:34 AM Attestation signed by Serge Wild MD I personally evaluated the patient and directed the medical decision making with Resident after the physical/radiologic exam and laboratory values were reviewed and confirmed. Labs stable, abd films OK. Consider trial liquids around tube. Serge Wild MD documented in this encounter [facility] 08-30-2024 Hospital Discharge instructions Sky Pearce MD - 08/30/2024 12:51 PM EST Please follow-up with your primary care provider within 5 to 7 days for continued care. Please use Colace, glycolax and senakot as advised, but stop taking once you are having regular bowel movements as it can cause further diarrhea. Please make sure you get your lab workup done including BMP and magnesium and follow up results with your PCP. If you have been given medication please take them as prescribed. Do not take more medication than recommended at any given time. If you begin to experience any symptoms such as chest pain shortness of breath nausea vomiting dizziness drowsiness abdominal pain loss of consciousness or any other symptoms you find concerning please return to the ED for follow-up evaluation. Please feel free return to the hospital if your symptoms worsen or any new concerning symptoms develop. Follow-up with your primary care physician as needed for all other the concerns. The following attachments cannot be sent through Care Everywhere.Bowel Obstruction ([place])documented in this encounter [facility] 08-17-2024 Hospital Discharge instructions Larisa Jean RN - 08/17/2024 1:26 [...] if your caregiver approves them. Only take enro-szf-ugesmgt or prescription medicines for pain, discomfort, or [...] 08/22/2006 Document Revised: 02/20/2013 Document Reviewed: 12/20/2012 ExitCare Patient Information 2013 [employer] .EGD DISCHARGE INSTRUCTIONS Activity: Rest today. No [...] or neck pain documented in this encounter [facility] 07-13-2024 History of Present illness Narrative Constantino Cardoso [...] months (around 10/13/2024). documented in this encounter [facility] 06-20-2024 History of Present illness Narrative Constantino [...] weeks (around 07/11/2024). documented in this encounter [facility] 05-14-2024 Note [facility] Note Reason for cardiology [...] to vasovagal r (more content not included)... [facility] 05-11-2024 Procedure note [facility] 04-26-2024 Evaluation note Authored April 26, [...] twice or three times daily if needed. [facility] Work Phone: [phone] 483-723707-15-2024 [facility] Reason for [...] hiatal hernia and acid (more content not included)...[facility] 02-16-2024 Evaluation + Plan note Diagnostic Tests Pending * Urine Culture 02/16/24 [facility] [...] valve prolapse, and NSVT (nonsustained ventricular tachycardia) ([facility] Surgical History She has a past surgical [...] 04/30/2019 PROT 6.3 08/ (more content not included)...[facility] 08-25-2023 NoteHNO ID: [id number] Author: Ellis Mayberry DO Service: ? Author [...] Successful intubation technique: video laryngoscopy Devices used: [employer] Endotracheal tube insertion site: oral Blade: Jake Blade size: #3 ETT size (mm): 7.0 Measured from: lips Measurement (cm): 22 Placement verified by: chest auscultation and capnometry Cormack-Lehane Classification: grade I - full view of glottis Number of attempts at approach: 1 Airway not difficult SIGNATURE: Ellis Mayberry DO PATIENT NAME: Constantino Cardoso DATE: August 25, 2023 TIME: 2:59 PM [facility]N: [id number] Patient Name: Constantino Cardoso Procedure Date: 08/25/2023 2:38 PM Date of : 1970 Admit Type: Outpatient Age: 53 Gender: Female Note Status: Finalized Attending MD: Marques Bradley MD, [id number] Procedure: Upper GI endoscopy Indications: Gastroparesis- for [...] the patient. Procedure Code(s): --- Professional --- 01787 Diagnosis Code(s): --- Professional --- K44.9 Z98.890 CPT copyright 2020 [employer]. All rights reserved. Attending Participation: I personally performed the entire procedure. Scope In: 2:59:10 PM Scope Out: 3:37:20 PM MD Marques Rainey MD 08/25/2023 3:41:00 PM This report has been signed electronically by Marques Bradley MD Number of Addenda: 0 Note Initiated On: 08/25/2023 2:38 [facility]11-24-2023 Note HNO ID: [id number] Author: Evelyn Black RN Service: ? Author Type: Registered Nurse Type: Progress Notes Filed: 07/29/2023 11:18 AM Note Text: [facility]11-24-2023 History of Present illness Narrative* Evelyn Black RN - 07/29/2023 11:17 AM EST [facility]* Patient Instructions* Melissa Montalvo RD - [...] High Protein, Atkins, Boost Glucose Control, Owyn, [place] Breakfast Essentials Light Start mixed with Fairlife [...] calories, no carbonation, no caffeine. Protein juarez ([id number], Isopure, Gatorade protein), electrolyte drinks (Gatorade or Powerade zero, sugar free liquid IV or Drip Drop), sugar free jello and sugarfree popsicles are also acceptable. Nutrition Monitoring & Evaluation: increase PO intake >75% of estimated needs, weight check and patient update Need for Follow up: based on surgery status documented in this encounterOhiohealth [facility] Center11-17-2023 NoteHNO ID: [id number] Author: Melissa Montalvo RD Service: ? Author Type: Registered Dietitian Type: Progress Notes Filed: 07/22/2023 4:06 PM Note Text: [facility] Nutrition Therapy: Virtual Consult - Initial Assessment I have communicated my name and active licensure. The patient?s identity and physical location were verified at the time of this visit. Either the patient or their legal nutrition representative has been informed of the risks [...] High Protein, Atkins, Boost Glucose Control, Owyn, [place] Breakfast Essentials Light Start mixed with Fairlife fat free or 1% milk. -Check www.bariatricfusion.com or www.[employer].com for additional options. Take small bites, eat slowly, chew food well, and always eat protein first. Separate eating and drinking by 30 min before and after. Aim for >64 oz water/day. Take small sips and avoid straws. Liquids should be sugar-free, no calories, no carbonation, no caffeine. 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 [place] body weight: 159 lbs. 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 Recommendation was a GPOEM. Will consult with surgeon next week regarding next POC for pt. Pt VU. documented in this encounterOhiohealth Grant Medical Center11-17-2023 History of Present illness Narrative* Melissa Montalvo RD - 07/22/2023 1:15 PM EST [facility] Nutrition Therapy: Virtual Consult - Initial Assessment I have communicated my name and active licensure. The patient s identity and physical location wereverified at the time of this visit. Either the patient or their legal nutrition representative has been informed of the risks [...] High Protein, Atkins, Boost Glucose Control, Owyn, [place] Breakfast Essentials Light Start mixed with Fairlife fat free or 1% milk. -Check www.bariatricfusion.com or www.[employer]s for additional options. Take small bites, eat slowly, chew food well, and always eat protein first. Separate eating and drinking by 30 min before and after. Aim for >64 oz water/day. Take small sips and avoid straws. Liquids should be sugar-free, no calories, no carbonation, no caffeine. Protein juarez (bqbwhil3h, Isopure, Gatorade protein), electrolyte drinks (Gatorade or [...] significant for adult onset weight gain (maintains ocscgh612 lbs, highest 220 lbs in 2018). 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 [place] body weight: 159 lbs. 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 Procedure Code(s): --- Professional --- 30155 Diagnosis Code(s): --- Professional --- K44.9 K31.89 Z98.890 R10.13 CPT copyright 2020 [employer]. All rights reserved. Attending Participation: I personally performed the entire procedure. Scope In: 10:40:19 AM Scope Out: 10:50:37 AM MD Marques Rainey MD 07/14/2023 10:53:09 AM This report has been signed electronically by Marques Bradley MD Number of Addenda: 0 Note Initiated On: 07/14/2023 10:24 [facility]11-09-2023 Nurse Note* Mónica Spaulding RN - 07/14/2023 [...] RN In Department: GASTROENTEROLOGY documented in this encounterOhiohealth Grant Medical Center11-08-2023 NoteHNO ID: [id number] Author: Shaw, Brennen, PhD Service: ? Author Type: Physician Type: Progress Notes Filed: 07/19/2023 10:07 AM Note Text: [facility] BARIATRIC SURGERY BEHAVIORAL HEALTH EVALUATION DATE OF SERVICE: July 13, 2023 TIME OF SERVICE: 2:10 PM-3:29 PM COST CENTER: 3BO CPT CODE: - 20206 Brief Emotional/Behavioral Assessment with scoring/documentation - [id number] Virtual Psych Diagnostic Eval BILLING CODE: ENDO PSYL MAIN 49182/Marco DATE OF FIRST SERVICE THIS CYCLE: July 13, 2023 SESSION #: 1 BMI Surgical Pathway Visit type: Bariatric Surgeon Visit I have communicated my name and active licensure. The patient's identity and physical location were verified at the time of this visit. Either the patient or their legal nutrition representative has been informed of the risks [...] other people who have undergone the procedure (detention Specific areas of understanding that should be [...] during the binge episod (more content not included)...[facility]09-22-2023 Miscellaneous Notes* Telephone Encounter - Evelyn [...] Pt agreed with plan. documented in this encounterOhiohealth Grant Medical Center09-21-2023 NoteHNO ID: [id number] Author: Nabil Bell RT(R) Service: Nuclear Medicine [...] May 26, 2023 TIME: 7:17 AM PAGER/CONTACT #:[facility]09-20-2023 NoteHNO ID: [id number] Author: Pedro Gonzalez LPN Service: ? Author Type: LICENSED NURSE Type: Progress Notes Filed: 05/25/2023 4:15 PM Note Text: Name: Constantino Cardoso CCF#: [id number] Date: 05/25/2023 ESOPHAGEAL MANOMETRY TEST Indication: Nausea [...] patient tolerated the test without difficulty. .[facility] History of Present illness Narrative* Pedro Gonzalez LPN - 05/25/2023 3:55 PM EDT Name: Constantino Cardoso F#: [id number] Date: 05/25/2023 ESOPHAGEAL MANOMETRY TEST Indication: Nausea [...] difficulty. .Pedro Gonzalez LPN documented in this encounterOhiohealth Grant Medical Center09-11-2023 Miscellaneous Notes* Telephone Encounter - Evelyn Black [...] after a gastric bypass. documented in this encounterOhiohealth Grant Medical Center09-01-2023 NoteHNO ID: [id number] Author: Marques Bradley MD Service: ? Author [...] for internal providers or letter via the [place] [employer] for external providers. Chief Complaint: [...] Marques Bradley MD Date: 05/12/2023 Time: 8:15 [facility]08-28-2023 Miscellaneous Notes* Telephone Encounter - Evelyn Black RN - 05/02/2023 9:12 AM EDT BMI SPECIALTY CARE COORDINATION TELEPHONE ENCOUNTER Chief complaint & duration dysphagia. Type of procedure: hernia repair hiatal with Dr. MORTENSEN in [place] February of 2019. Sending OP notes Nursing assessment (subjective/objective) . pain in chest area and getting worse Went to [place] ED March 2023 who told her she needed a stent in her heart..but her c/o were difficulty swallowing and sent pt home and referred her to [facility] and was there in the hospital [...] appt after records obtained documented in this encounterOhiohealth Grant Medical Center08-22-2023 Miscellaneous Notes* Telephone Encounter - Evelyn Black RN - 04/26/2023 2:00 PM EDT BMI SPECIALTY CARE COORDINATION TELEPHONE ENCOUNTER Second attempt to contact this pt. Pt has upcoming information, and unable to complete any chart prep, history, symptoms, testing etc. LVM and call back number. documented in this encounterOhiohealth Grant Medical Center08-17-2023 Evaluation note* Encounter Date Diagnosis Assessment Notes Treatment Notes Treatment Clinical Notes Apr, Esophageal dysmotility (ICD-10 - K22.4) Apr, Esophageal spasm (ICD-10 - K22.4) Apr, Nausea & vomiting (ICD-10 - R11.2) Pat[place] reports that she still has nausea but no vomiting Patient reports that she is to see Dr. Strong at [facility] Patient is to start dicyclomine 20 mg 4 times daily sent to [facility] today RTO 6 weeks Apr, Dysphagia (ICD-10 - R13.10) [employer] Other 08-14-2023 Miscellaneous Notes* Telephone Encounter - Evelyn Black RN - 04/18/2023 2:13 PM EDT BMI SPECIALTY CARE COORDINATION TELEPHONE ENCOUNTER Contacted pt regarding a referral from Dr Martinez's office. LVM and call back number. documented in this encounterOhiohealth Grant Medical Center08-03-2023 Miscellaneous Notes* Telephone Encounter - Yancy Lopez - 04/07/2023 1:15 PM EDT Referral rec'd documented in this encounterOhiohealth Grant Medical Center06-17-2023 Evaluation + Plan note Extracted [...] pain, # 20 tab(s), Refills(s) 0, Pharmacy: [facility]/pharmacy #[id number], 170, cm, 02/19/23 0:56:00 EDT, Height/Length Dosing, 90.2, kg, 02/19/23 0:56:00 EDT, Weight Dosing XR Elbow 3+ Views Right XR Wrist 3+ Views Right [facility]06-17-2023 Hospital Discharge instructions Patient Education [...] are safe for you. General instructions Take lfjr-eqy-njbvjif and prescription medicines only as told by [...] provider. Document Revised: 12/29/2020 Document Reviewed: 12/29/2020 [employer] Patient Education 2022 [employer]. Follow Up Care 02/19/2023 00:51:16 With:JUDI YOUSSEF Address: [address] [place] [address]- [phone] Business (1) When:02/22/2023 Comments:Take the pain medication as prescribed as needed for pain. Please follow-up with your primary care doctor in the next 2 to 3 days for further evaluation management. Please return to the ED for any new or worsening symptoms or [facility]08-10-2022 Hospital Discharge instructions Patient Education [...] water added (diluted fruit juice). Eat bland, kddy-gk-isviqw foods in small amounts as you are able. These foods include bananas, applesauce, rice, lean meats, toast, and crackers. Avoid fluids that contain a lot of sugar or caffeine, such as energy drinks, sports drinks, and soda. Avoid alcohol. Avoid spicy or fatty foods. General instructions Take wtpu-oxa-awovgnb and prescription medicines only as told by your health care provider. Drink enough fluid to keep your urine pale yellow. Wash your hands often using soap and water. If soap and water are not available, use hand charge auditor. Make sure that all people in your [...] eating and drinking to prevent dehydration. Take qvhv-pbp-wmxwpyo and prescription medicines only as told by [...] 08/22/2006 Document Revised: 12/14/2019 Document Reviewed: 01/30/2019 [employer] Patient Education 2020 [employer]. Follow Up Care 01/28/2022 13:58:23 With:Monique Marquez CNP Address: When:3 months [facility] 05-26-2022 Hospital Discharge [...] drinks. ?Tomatoes and foods made with tomatoes. ?[place] or spicy foods. ?Chocolate and peppermint. Do not drink alcohol. General instructions Take peil-mbv-nlpflyz and prescription medicines only as told by [...] 11/11/2004 Document Revised: 12/18/2018 Document Reviewed: 12/18/2018 [employer] Patient Education 2020 [employer]. Follow Up Care 01/13/2022 12:36:01 With:Monique Marquez CNP Address: When:3 months [facility] 05-09-2022 Hospital Discharge instructions Patient Education 01/11/2022 09:56:58 Endoscopy, Care After Procedure [facility] Endoscopy Care After Procedure Please read the instructions outlined below and refer to this sheet in the next few weeks. These discharge instructions provide you with general information on caring for [facility] Your doctor may also give you [...] blood. Document Released: 04/05/2005 Document Re-Released: 02/13/2007 [employer] Patient Information [employer]. 01/11/2022 09:56:58 Pearce's Esophagus Pearce's Esophagus Pearce's [...] drinks. ?Tomatoes and foods made with tomatoes. ?[place] or spicy foods. ?Chocolate and peppermint. Do not drink alcohol. General instructions Take ketb-ien-aivlrya and prescription medicines only as told by [...] 11/11/2004 Document Revised: 12/18/2018 Document Reviewed: 12/18/2018 [employer] Patient Education Peach. Follow Up Care 12/03/2021 15:32:26 With:Anai FORBES Address: [address] [place] [address] Business (1) When:1 to 2 weeks Comments:Call for any problems. [facility]03-30-2022 Hospital Discharge instructions Follow Up Care 12/02/2021 10:32:32 With:JHOANA MELGOZA PA-C, URL Address: [address] [place] [address] When: Unknown [facility] Evaluation + Plan note Future Appointments Appointment Date:01/11/2022 09:40:00 AM Scheduled Provider: Location:[facility] Surgical Services Appointment Type:Surgery FT [facility] Evaluation + Plan note Future Appointments Appointment Date:04/14/2022 03:00:00 PM Scheduled Provider:Monique Marquez CNP Location:[facility] Appointment Type:[facility] Follow Up Future Scheduled Tests Radiology* NM Gastric Emptying Study 01/28/22 [facility] Evaluation + Plan note Future Appointments Appointment Date:04/14/2022 03:00:00 PM Scheduled Provider:Monique Marquez CNP Location:[facility] Appointment Type:BAD Follow Up [facility] Future Appointments Appointment Date:04/20/2022 12:00:00 PM Scheduled Provider: Location:.[facility] Appointment Type:US Abdominal/Pelvis () Appointment Date:06/02/2022 09:45:00 AM Scheduled Provider:Anai FORBES MD Location:[facility]estive [facility] Appointment Type:[facility] Follow Up Future Scheduled Tests Laboratory* Fecal WBC Lactoferrin 04/14/22 * Giardia lamblia, Direct Detection EIA 04/14/22 * O & P Exam, Routine 04/14/22 * Clostridium difficile by PCR 04/14/22 * Enteric Panel by PCR 04/14/22 * CBC w/ Auto Diff 04/14/22 * Comprehensive Metabolic Panel 04/14/22 Radiology* US Abdomen Complete 04/20/22 [facility] Evaluation + Plan note Future Appointments Appointment Date:06/02/2022 09:45:00 AM Scheduled Provider:Anai FORBES MD Location:[facility] Appointment Type:[facility] Follow Up Diagnostic Tests Pending * O & P Exam, Routine 04/29/22 * Giardia lamblia, Direct Detection EIA 04/29/22 [facility] noteNo assessment information [facility] Work Phone: Evalufacaa noteNo InformationNonorthwest medical center [employer] Other Evaluation note* Diagnosis Nausea- Primary Nausea alone Dysphagia, unspecified type documented in this encounter [facility] note* Diagnosis Nausea Nausea alone documented in this encounter [facility] note* Diagnosis Dysphagia, unspecified type Gastroparesis History of Pricilla fundoplication Personal history of surgery to other organs documented in this encounter [facility] note* Diagnosis Gastroparesis- Primary Malnutrition of moderate degree (HCC) Malnutrition of moderate degree Gastro-esophageal reflux disease without esophagitis Esophageal reflux Overweight (BMI 25.0-29.9) Overweight Dietary counseling and surveillance Dietary surveillance and counseling documented in this encounter [facility] note* Diagnosis Gastroparesis- Primary documented in this encounter [facility] note* Diagnosis Onset Date Resolution Status Abdominal adhesions acute Dysphagia acute Small bowel obstruction acut e [facility] Work Phone: Evaluation note* Diagnosis Hypoglycemia- Primary Hypoglycemia, unspecified Encounter for dietary consultation documented [facility]* Diagnosis Hypoglycemia Hypoglycemia, unspecified documented in this encounter [facility]* Diagnosis Other dysphagia- Primary Other dysphagia documented in this encounter [facility]Evaluation note* Diagnosis Ileus (HCC)- Primary Paralytic ileus Ileus (HCC) Paralytic ileus Generalized abdominal pain Abdominal pain, generalized Hypokalemia Hypopotassemia Primary hypertension Unspecified essential hypertension Gastroesophageal reflux disease with esophagitis without hemorrhage Major depressive disorder Major depressive disorder, single episode, unspecified Hypokalemia Hypopotassemia Generalized abdominal pain Abdominal pain, generalized documented in this encounter [facility] HealthHistory and physical note Author Jennie Ayon [facility] May 11, 2024 10:16am Note Date/Time May 11, 2024 10:16am [facility] ENTER [address] [place] [address] Gastroenterology H&P Signed Patient: Constantino Cardoso MR#: [id number] : 1970 Acct:[id number] Age/Sex: 53 / F Adm Date: 4 Loc: Room: Type: [facility] Attending Dr: Jennie Ayon MD Copies to: [...] signed by Jennie Ayon MD> 05/11/24 1016 [facility] Work Phone: History general Narrative - Reported* Type Description Date Medical History mitral valve prolapse Medical History gallstones Medical History Acid reflux Medical History Hiatal Hernia Medical History headache Surgical History hysterectomy Surgical History cholecystectomy Surgical History hiatal hernia repair Hospitalization History see above Hospitalization History kindey infections hospit alized x3 [employer] Other Hospital course Narrative No data available for this section [facility] Hospital Discharge instructions No data available for this section [facility] Additional Instructions Follow-up with your primary care doctor Return to ED if develop worsening [facility] Work Phone: Hospital Discharge instructions Additional Instructions If your symptoms return/worsen or you develop any further concerns or symptoms please see your doctor or return to the emergency department immediately. Please be sure to continue follow-up with the delivery table operator and with your scheduled EGD and further testing.[facility] Work Phone: Hospital Discharge instructions Additional [...] problems. -Follow up with PCP. -Office number [phone]. [facility] Work Phone: Progress note No data available for this section [facility] Center[facility] for [facility] (narrative)* Diagnostic Procedure Only (Routine) - Authorized Specialty Diagnoses / Procedures Referred By Contac t Referred To Contact MOLECULAR & FUNCTIONAL IMAGING Diagnoses Nausea Procedures NM GASTRIC EMPTYING SOLID GASTRIC EMPTYING STUDY Marques Bradley MD [address] [place] [address] Molecular & Functional Imaging [address] [place] [address] Referral ID Status Reason Start Date Expiration Date Visits Requested Visits Authorized [id number] Authorized Auto-Generat ed Referral 05/16/2023 06/14/2024 1 1 * Outpatient Procedure (Routine) - Authorized Specialty Diagnoses / Procedures Referred By Eileen mueller Referred To Contact [facility] DISEASE [place] Diagnoses Nausea Procedures MANOMETRY ESOPHAGEAL ESOPHAGEAL MOTILITY STUDY W/INTERP&RPT Marques Bradley MD [address] [place] [address] [address] Referral ID Status Reason Start Date Expiration Date Visits Requested Visits Authorized [id number] Authorized Auto-Generat ed Referral 05/16/2023 05/16/2024 1 1 [facility] for referral (narrative)* Outpatient Procedure (Routine) - Closed Specialty Diagnoses / Procedures Referred By Eileen mueller Referred To Contact [facility] Diagnoses Dysphagia, unspecified type Gastroparesis History of Pricilla fundoplication Procedures EGD - THERAPEUTIC, EUS, OR TUBE INTERVENTIONS ESOPHAGOGASTRODUODENOSCOPY TRANSORAL DIAGNOSTIC STOMACH SURGERY PROCEDURE UNLISTED Marques Bradley MD [address] [place] [address] [address] Referral ID Status Reason Start Date Expiration Date V isits Requested Visits Authorized [id number] Closed Auto-Generate d Referral 05/27/2023 05/27/2024 1 1 [facility] for referral (narrative)* Outpatient Procedure (Routine) - Authorized Specialty Diagnoses / Procedures Referred By Eileen mueller Referred To [facility] Diagnoses Gastroparesis Procedures EGD - THERAPEUTIC, EUS, OR TUBE INTERVENTIONS ESOPHAGOGASTRODUODENOSC OPY TRANSORAL DIAGNOSTIC STOMACH SURGERY PROCEDURE UNLISTED Marques Bradley MD [address] [place] [address] [place] [address] Referral ID Status Reason Start Date Expiration Date Visits Requested Visits Authorized [id number] Authorized Auto-Generat ed Referral 3 07/29/2024 1 1 [facility] for visit Narrative* Outpatient Procedure (Routine) - Closed Specialty Diagnoses / Procedures Referred By Contac t Referred To Contact [facility] Diagnoses Dysphagia, unspecified type Gastroparesis History of Pricilla fundoplication Procedures EGD - THERAPEUTIC, EUS, OR TUBE INTERVENTIONS ESOPHAGOGASTRODUODENOSCOPY TRANSORAL DIAGNOSTIC STOMACH SURGERY PROCEDURE UNLISTED Marques Bradley MD [address] [place] [address] [address] Referral ID Status Reason Start Date Expiration Date V isits Requested Visits Authorized [id number] Closed Auto-Generate d Referral 05/27/2023 05/27/2024 1 1 [facility] Summary Purpose Family History No [...] Time Advance Directives No November 23 018 9:23am Advance Directive Response Recorded Date/ Time Advance Directives No November 23 018 10:23am Date Activated Date Inactivated Comments 08/28/2024 3:16 PM Hospital Course Note MR#: [id number] [facility] Pt. Name: Constantino Cardoso Admitted: [...] a 49-year-old female, who was transferred to [facility] from [facility] with acute abdominal pain. The pain has started on Tuesday while at work. 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 The pain feels similar to when she was here in April during her stay. During that time, she was told there was nothing left for Dr. Mortensen to do and she has been following up with GI specialist in [place]. She is actually due to have an [...] BARIUM SWALLOW W VIDEO Justin Lucero MD [address] [facility] [address] [place] [address] Referral ID Status Reason Start Date Expiration Date Visits Re quested Visits Authorized [id number] Open 08/17/2024 08/17/2025 1 1 Additional Source Comments INFORMATION SOURCE (unrecogn ized section and content) DATE CREATED AUTHOR 06/03/2020 Our [facility] DATE CREATED AUTHOR AUTHOR'S ORGANIZ ATION 01/17/2023 [facility] DATE CREATED AUTHOR AUTHOR'S ORGANIZ ATION 04/02/2023 [facility] DATE CREATED AUTHOR AUTHOR'S ORGANIZ ATION 08/26/2023 [facility] DATE CREATED AUTHOR AUTHOR'S ORGANIZ ATION 12/03/2023 [facility] DATE CREATED AUTHOR AUTHOR'S ORGANIZ ATION 02/17/2024 [facility] DATE CREATED AUTHOR AUTHOR'S ORGANIZ ATION 02/19/2024 [facility] DATE CREATED AUTHOR AUTHOR'S ORGANIZ ATION 04/10/2024 [facility] DATE CREATED AUTHOR AUTHOR'S ORGANIZ ATION 05/14/2024 [facility] DATE CREATED AUTHOR AUTHOR'S ORGANIZ ATION 06/09/2024 [facility] DATE CREATED AUTHOR AUTHOR'S ORGANIZ ATION 06/21/2024 [facility] DATE CREATED AUTHOR AUTHOR'S ORGANIZ ATION 07/15/2024 [facility] DATE CREATED AUTHOR AUTHOR'S ORGANIZ ATION 08/19/2024 [facility] DATE CREATED AUTHOR AUTHOR'S ORGANIZ ATION 08/30/2024 [facility] Care Team (unrecognized sect ion and content) Team Status: Active Member Role Status Dates Judi Youssef BOY'S ADVISER-C Primary Care Provider Active Team Status: Active Member Role Status Dates Judi Youssef BOY'S ADVISER-C Primary Care Provider Active Start: April 13, [...] Ayon MD Attending Provider Active Judi Youssef , BOY'S ADVISER-C Primary Care Provider Active Team Status: Inactive Member Role Status Dates Judi Youssef , BOY'S ADVISER-C Primary Care Provider Active Pete Thakkar DO Emergency Provider Active Day Care Director Relationship Specialty Start Date End Date DomenicoJoel blanco PCP - General Family Medicine 04/26/18 Rafa Rangel [address] [place] [address] Referring General Surgery 04/26/18 Day Care Director Relationship Specialty Start Date End Date DomenicoJoel blanco PCP - General Family Medicine 04/26/18 Rafa Rangel [address] [place] [address] Referring General Surgery 04/26/18 Day Care Director Relationship Specialty Start Date End Date Joel Alejandra PCP - General Family Medicine 04/26/18 Rafa Rangel [address] [place] [address] Referring General Surgery 04/26/18 Day Care Director Relationship Specialty Start Date End Date DomenicoJoel blanco Onel PCP - General Family Medicine 04/26/18 Rafa Rangel [address] [place] [address] Referring General Surgery 04/26/18 Day Care Director Relationship Specialty Start Date End Date Joel Alejandra PCP - General Family Medicine 04/26/18 Rafa Rangel [address] [place] [address] Referring General Surgery 04/26/18 Day Care Director Relationship Specialty Start Date End Date Joel Alejandra PCP - General Family Medicine 04/26/18 Rafa Rangel [address] [place] [address] [address] [place] [address] Referring General Surgery 04/26/18 Day Care Director Relationship Specialty Start Date End Date Joel Alejandra PCP - General Family Medicine 04/26/18 Rafa Rangle [address] [place] [address] [address] [place] [phone] Referring General Surgery 04/26/18 Day Care Director Relationship Specialty Start Date End Date Joel Alejandra PCP - General Family Medicine 04/26/18 Rafa Rangel [address] [facility] [address] [place] [phone] Referring General Surgery 04/26/18 Day Care Director Relationship Specialty Start Date End Date Joel Alejandra PCP - General Family Medicine 04/26/18 Rafa Rangel [address] [place] [address] [address] [place] [phone] Referring General Surgery 04/26/18 Day Care Director Relationship Specialty Start Date End Date Joel Alejandra PCP - General Family Medicine 04/26/18 Rafa Rangel [address] [place] [address] [address] [place] [phone] Referring General Surgery 04/26/18 Day Care Director Relationship Specialty Start Date End Date Joel Alejandra PCP - General Family Medicine 04/26/18 Rafa Rangel [address] [place] [phone] Referring General Surgery 04/26/18 Day Care Director Relationship Specialty Start Date End Date Unallocated, Miracle Jesus MD [address] [place] [phone] PCP - General 04/25/23 Judi Youssef MD [address] [place] [address] Referring Physician Family Medicine 04/25/23 Day Care Director Relationship Specialty Start Date End Date Unallocated, Miracle Jesus MD [address] [place] [phone] PCP - General 04/25/23 Judi Youssef MD [address] [phone] Referring Physician Family Medicine 04/25/23 Day Care Director Relationship Specialty Start Date End Date Unallocated, Miracle Jesus MD [address] [place] [id number] PCP - General 04/25/23 Judi Youssef MD [address] [place], [place] [phone] Referring Physician Family Medicine 04/25/23 Day Care Director Relationship Specialty Start Date End Date Unallocated, Miracle Jesus MD [address] [place] [phone] PCP - General 04/25/23 [place] [address] [place] [address] Referring Physician Family Medicine 04/25/23 Day Care Director Relationship Specialty Start Date End Date No, Pcp PCP - General 08/17/24 Day Care Director Relationship Specialty Start Date End Date Judi Youssef S, [employer] SUPERVISOR - SKILLS TRAINER [address] [place], [place] [phone] PCP - General 08/29/24 Goals (unrecognized section and content) Goals may be documented in a n alternate section REASON FOR VISIT (unrecogniz ed section and content) Reason Comments Appointment Reason Comments 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 - Other Reason Onset Date Comments Procedure 05/25/2023 Manometry Esopha geal Specialty Diagnoses / Procedures Referred By Contac t Referred To Contact [facility] Diagnoses Nausea Procedures MANOMETRY ESOPHAGEAL ESOPHAGEAL MOTILITY STUDY W/INTERP&RPT Marques Bradley MD [address] [place] [address] [facility] [address] [place] [address] Referral ID Status Reason Start Date Expiration Date V isits Requested Visits Authorized [id number] Closed Auto-Generate d Referral 05/16/2023 05/16/2024 1 1 Reason Comments Results Reason Comments Patient Education Assessment Reason Comments Hypoglycemia NEW Reason Comments Hypoglycemia Specialty Diagnoses / Procedures Referred By Contac t Referred To Contact Diagnoses Other dysphagia Other dysphagia [R13.19] Procedures MI EGD TRANSORAL BIOPSY SINGLE/MULTIPLE MI ESOPHAGOGASTRODUODENOSCOPY TRANSORAL DIAGNOSTIC MI EGD BALLOON DILATION ESOPHAGUS <30 MM DIAM ESOPHAGOGASTRODUODENOSCOPY BIOPSY Justin Lucero MD [address] [facility] [address] [place] [address] [facility] [address] [place] [address] Referral ID Status Reason Start Date Expiration Date Visits Re quested Visits Authorized [id number] 1 1 Reason Comments Abdominal Pain Specialty Diagnoses / Procedures Referred By Contac t Referred To Contact Diagnoses Ileus (HCC) Intestinal obstruction (HCC) Obdulio Justice MD [address] [address] [facility] [address] [place] [address] Referral ID Status Reason Start Date Expiration Date Visits Re quested Visits Authorized [id number] 1 1 Source Comments (unrecognize d section and content) In the event this informatio n is protected by the Federal Confidentiality of Alcohol and Drug Abuse Patient Records regulations: The Federal rules restrict any use of the information to criminally investigate or prosecute any alcohol or drug abuse patient.[facility] the event this information is protected by the Federal Confidentiality of Alcohol and Drug Abuse Patient Records regulations: The Federal rules restrict any use of the information to criminally investigate or prosecute any alcohol or drug abuse patient.[facility] Center[facility] the event this information is protected by the Federal Confidentiality of Alcohol and Drug Abuse Patient Records regulations: The Federal rules restrict any use of the information to criminally investigate or prosecute any alcohol or drug abuse patient.[facility] the event this information is protected by the Federal Confidentiality of Alcohol and Drug Abuse Patient Records regulations: The Federal rules restrict any use of the information to criminally investigate or prosecute any alcohol or drug abuse patient.[facility] the event this information is protected by the Federal Confidentiality of Alcohol and Drug Abuse Patient Records regulations: The Federal rules restrict any use of the information to criminally investigate or prosecute any alcohol or drug abuse patient.[facility] Center[facility] the event this information is protected by the Federal Confidentiality of Alcohol and Drug Abuse Patient Records regulations: The Federal rules restrict any use of the information to criminally investigate or prosecute any alcohol or drug abuse patient.[facility] Center[facility] the event this information is protected by the Federal Confidentiality of Alcohol and Drug Abuse Patient Records regulations: The Federal rules restrict any use of the information to criminally investigate or prosecute any alcohol or drug abuse patient.[facility] the event this information is protected by the Federal Confidentiality of Alcohol and Drug Abuse Patient Records regulations: The Federal rules restrict any use of the information to criminally investigate or prosecute any alcohol or drug abuse patient.[facility] Center[facility] the event this information is protected by the Federal Confidentiality of Alcohol and Drug Abuse Patient Records regulations: The Federal rules restrict any use of the information to criminally investigate or prosecute any alcohol or drug abuse patient.[facility] Center[facility] the event this information is protected by the Federal Confidentiality of Alcohol and Drug Abuse Patient Records regulations: The Federal rules restrict any use of the information to criminally investigate or prosecute any alcohol or drug abuse patient.[facility] Center[facility] the event this information is protected by the Federal Confidentiality of Alcohol and Drug Abuse Patient Records regulations: The Federal rules restrict any use of the information to criminally investigate or prosecute any alcohol or drug abuse patient.[facility] Center[facility] the event this information is protected by the Federal Confidentiality of Alcohol and Drug Abuse Patient Records regulations: The Federal rules restrict any use of the information to criminally investigate or prosecute any alcohol or drug abuse patient.[facility] Scheduled Active and Recently Administ ered Medications [...] Change - Provider: Chung Renee APRN - [facility]) PRN Medication Order 08/15/2024 08/16/2024 08/17/2024 0.9 [...] = 20 mL/lumen, Pre-op (day of surgery) Scheduled Medication Order 08/28/2024 08/29/2024 08/30/2024 diphenhydrAMINE (BENADRYL) injection 25 mg (COMPLETED) 25 mg, IntraVENous, ONCE, 1 dose, On Tue08/28/24 at 1145, IV Push at rate not to exceed 25 mg/min. 1211 (Given - Provider: Makayla Olson, VICKY) docusate sodium (COLACE) capsule 100 mg 100 mg, Oral, DAILY, First dose on Tue08/29/24 at 1100, Until Discontinued, Do not crush or break. 1156 (Given - Provider: Enedina Madden RN) 0942 (Given - Provider: Jermain Renee, RN) enoxaparin (LOVENOX) injection 40 mg 40 mg, SubCUTAneous, DAILY, First dose on Tue08/28/24 at 1545, Until Discontinued, Indication of Use: Prophylaxis-DVT/PE, Administer by deep subCUTAneous injection with pt lying down. Alternate injection sites on abdominal wall. Do not rub site after injection. Check with provider prior to any invasive procedure. 1638 (Given - Provider: Maine Espinoza RN) 0740 (Given - Provider: Enedina Madden RN) 0942 (Given - Provider: Jermain Renee, VICKY) ketorolac (TORADOL) injection 30 mg (COMPLETED) 30 mg, IntraVENous, ONCE, 1 dose, On Tue08/28/24 at 1800 1733 (Given - Provider: Maine Espinoza RN) lisinopril (PRINIVIL;ZESTRIL) tablet 10 mg 10 mg, Oral, EVERY MORNING, First dose on Tue08/29/24 at 0900, Until Discontinued 1516 (Held by provider - Provider: Chad Mclaughlin MD - Reason: Other - Comment: NPO) 0900 (Automatically Held)1041 (Unheld by provider - Provider: Bere Armstrong MD) 0942 (Given - Provider: Jermain Renee, VICKY) metoclopramide (REGLAN) injection 10 mg (COMPLETED) 10 mg, IntraVENous, ONCE, 1 dose, On Tue08/28/24 at 1145, IV Push: Max 10 mg over 1-2 minutes. 1210 (Given - Provider: Makayla Olson RN) metoprolol succinate (TOPROL XL) extended release tablet 50 mg 50 mg, Oral, DAILY, First dose on Tue08/28/24 at 1545, Until Discontinued, Do not crush or chew. 1516 (Held by provider - Provider: Chad Mclaughlin MD - Reason: Other - Comment: NPO)1545 (Automatically Held) 0900 (Automatically Held)2111 (Unheld by provider - Provider: Sky Pearce MD) 0942 (Given - Provider: Jermain Renee, VICKY) pantoprazole (PROTONIX) 40 mg in sodium chloride (PF) 0.9 % 10 mL injection (CANCELED) 40 mg, IntraVENous, DAILY, First dose on Tue08/29/24 at 0900, Reconstitute with 10 mL 0.9 % sodium chloride and administer over at least 2 minutes. 0740 (Given - Provider: Enedina Madden RN) 0926 (Not Given - Provider: Jermain Renee RN - Reason: Other - Comment: discontinued) pantoprazole (PROTONIX) tablet 40 mg 40 mg, Oral, DAILY BEFORE BREAKFAST, First dose on Tue08/31/24 at 0700, Until Discontinued, Do not crush or break. polyethylene glycol (GLYCOLAX) packet 17 g 17 g, Oral, DAILY, First dose on Tue08/29/24 at 1100, Until Discontinued, Stir and dissolve one packet of powder (17 g) in any 4 to 8 ounces of beverage (cold, hot or room temperature) then drink 1156 (Given - Provider: Enedina Madden RN) 0942 (Given - Provider: Jermain Renee, VICKY) potassium chloride 10 mEq/100 mL IVPB (Peripheral Line) (COMPLETED) 10 mEq, IntraVENous, EVERY HOUR, 2 doses, First dose on Tue08/29/24 at 0715, Last dose on Tue08/29/24 at 0815, at 100 mL/hr, Potassium chloride doses are limited to a maximum of six consecutive doses before reassessment of laboratory values is needed. 0744 (New Bag - Provider: Enedina Madden RN)0844 (Stopped - Provider: Enedina Madden RN)0848 (New Bag - Provider: Enedina Madden RN)0948 (Stopped - Provider: Enedina Madden RN) senna (SENOKOT) tablet 8.6 mg 8.6 mg (1 tablet), Oral, 2 TIMES DAILY, First dose on Tue08/29/24 at 1100, Until Discontinued 1156 (Given - Provider: Enedina Madden RN)2010 (Given - Provider: Cady Oconnor RN) 0942 (Given - Provider: Jermain Renee RN)2099 (Due) sertraline (ZOLOFT) tablet 50 mg 50 mg, Oral, DAILY, First dose on Tue08/28/24 at 1545, Until Discontinued 151 (Held by provider - Provider: Chad Mclaughlin MD - Reason: Other - Comment: NPO)1545 (Automatically Held) 0900 (Automatically Held)2110 (Unheld by provider - Provider: Sky Pearce MD) 0942 (Given - Provider: Jermain Renee RN) sodium chloride flush 0.9 % injection 5-40 mL 5-40 mL, IntraVENous, EVERY 12 HOURS SCHEDULED (2 times per day), First dose on Tue08/28/24 at 2100, Until Discontinued, For Line Patency: Peripheral IV [...] mL Midline or Central Line = 20 mL/lumen 2001 (Given - Provider: Brown Richard RN) 09 (Not Given - Provider: Enedina Madden RN - Reason: IV Fluid Infusing)1934 (Not Given - Provider: Cady Oconnor RN - Reason: IV Fluid Infusing) 0942 (Given - Provider: Jermain Renee RN)2099 (Due) Continuous Medication Order 08/28/2024 08/29/2024 08/30/2024 0.9 % sodium chloride infusion (CANCELED) IntraVENous, at 75 mL/hr, CONTINUOUS, Starting on Tue08/28/24 at 1545 1542 (New Bag - Provider: Maine Espinoza RN)1542 (Rate/Dose Verify - Provider: Brown Richard RN)1548 (Paused - Provider: Brown Richard RN)1552 (Restarted - Provider: Brown Richard RN)1554 (Paused - Provider: Brown Richard RN)1733 (Restarted - Provider: Brown Richard RN)2341 (Rate/Dose Verify - Provider: Brown Richard RN) 0610 (Rate/Dose Change - Provider: Brown Richard RN)0610 (Stopped - Provider: Brown Richard RN) dextrose 5 % and 0.9 % sodium chloride infusion (CANCELED) IntraVENous, at 50 mL/hr, CONTINUOUS, Starting on Tue08/28/24 at 2245 0611 (New Bag - Provider: Brown Richard RN)0628 (Rate/Dose Verify - Provider: Brown Richard RN)1405 (Stopped - Provider: Enedina Madden RN)1420 (Rate/Dose Verify - Provider: Enedina Madden RN)1723 (Rate/Dose Verify - Provider: Enedina Madden RN) potassium chloride 40 mEq in dextrose 5 % 1,000 mL infusion (CANCELED) IntraVENous, at 50 mL/hr, CONTINUOUS, Starting on Tue08/29/24 at 1245 1414 (New Bag - Provider: Enedina Madden RN) PRN Medication Order 08/28/2024 08/29/2024 08/30/2024 0.9 % sodium chloride infusion IntraVENous, at 5-250 mL/hr, PRN, if patient receiving piggyback infusions and maintenance fluids are not ordered, Starting on Tue08/28/24 at 1516, For piggyback infusion, administer at same rate as piggyback for a total of 25 mL. Enter 25 mL into dose field and piggyback rate into rate field of order. If piggyback is infusing at a rate less than 100 mL/hr, enter 25 mL into dose field and 100 mL/hr into rate field of order. acetaminophen (TYLENOL) suppository 650 mg(Linked Group 1) 650 mg, Rectal, EVERY 6 HOURS PRN, Starting on Tue08/28/24 at 1516, Until Discontinued, Pain Mild (1-3), Fever, For temp greater than 100.4 F (38 C), Administer if oral route cannot be used. acetaminophen (TYLENOL) tablet 650 mg(Linked Group 1) 650 mg, Oral, EVERY 6 HOURS PRN, Starting on Tue08/28/24 at 1516, Until Discontinued, Pain Mild (1-3), Fever, For temp greater than 100.4 F (38 C), Maximum dose of acetaminophen is 4000 mg from all sources in 24 hours. ketorolac (TORADOL) injection 30 mg 30 mg, IntraVENous, EVERY 6 HOURS PRN, Starting on Tue08/28/24 at 2309, Until 09/02/24 at 2308, Pain Severe (7-10), Do not administer for more than 5 days. 6333 (Given - Provider: Brown Richard RN) 2217 (Given - Provider: Enedina Madden RN)1419 (Given - Provider: Enedina Madden RN) labetalol (NORMODYNE;TRANDATE) injection 10 mg 10 mg, IntraVENous, EVERY 6 HOURS PRN, Starting on Tue08/28/24 at 1516, Until Discontinued, High Blood Pressure, Give If SBP > 160 magnesium sulfate 2000 mg in 50 mL IVPB premix 2,000 mg, IntraVENous, at 25 mL/hr, Administer over 2 Hours, PRN, Other, Magnesium Replacement, Starting on Tue08/28/24 at 1516, Mag Lab Replacement Action 1.4-1.6 mg/dL 2,000 mg Total Dose Given as 1,000 mg IVPB x 2 doses or 2,000 mg IVPB x 1 dose 1.0-1.3 mg/dL 4,000 mg Total Dose Given as 1,000 mg IVPB x 4 doses or 2,000 mg IVPB x 2 doses Less than 1.0 mg/dL CALL PHYSICIAN and give 4,000 mg Total Dose Given as 1,000 mg IVPB x 4 doses or 2,000 mg IVPB x 2 doses Infuse at 1,000 mg/hr Repeat Mag level 1 hour after final administration Protocol not for use in Patients with CrCl less than 30ml/min ondansetron (ZOFRAN) injection 4 mg(Linked Group 2) 4 mg, IntraVENous, EVERY 6 HOURS PRN, Starting on Tue08/28/24 at 1516, Until Discontinued, Nausea, Vomiting, Administer if oral route cannot be used. ondansetron (ZOFRAN-ODT) disintegrating tablet 4 mg(Linked Group 2) 4 mg, Oral, EVERY 8 HOURS PRN, Starting on Tue08/28/24 at 1516, Until Discontinued, Nausea, Vomiting polyethylene glycol (GLYCOLAX) packet 17 g 17 g, Oral, DAILY PRN, Starting on Tue08/28/24 at 1516, Until Discontinued, Constipation, First line therapy for constipation potassium bicarb-citric acid (EFFER-K) effervescent tablet 40 mEq(Linked Group 3) 40 mEq, Oral, PRN, Starting on Tue08/28/24 at 1516, Until Discontinued, Per Potassium Replacement Protocol, Administer as alternative if patient unable to tolerate oral tablet. K Lab Replacement Action 3.1 to 3.5 40 mEq ORAL x 1 Under 3.1 Refer to IV replacement protocol Recheck K level in AM. Protocol not for use in patients with CrCl less than 30 mL/min. Do not chew or crush. Dissolve flavored tablets completely in 3 to 4 ounces of cold water; unflavored tablets may be dissolved in 3 to 4 ounces of cold juice. Patient to sip slowly over a 5 to 10 minute period. May further dilute if GI adverse effects occur. potassium chloride (KLOR-CON M) extended release tablet 40 mEq(Linked Group 3) 40 mEq, Oral, PRN, Starting on Tue08/28/24 at 1516, Until Discontinued, Potassium Replacement, May give alternative linked oral order (ordered as effervescent, packet, or liquid solution) if patient unable to tolerate tablet. K Lab Replacement Action 3.1 to 3.5 40 mEq ORAL x 1 Under 3.1 Refer to IV replacement protocol Recheck K level in AM. Protocol not for use in patients with CrCl less than 30 mL/min. Do not crush, chew, or suck on tablet. Tablet may also be broken in half and each half swallowed separately. potassium chloride 10 mEq/100 mL IVPB (Peripheral Line)(Linked Group 3) 10 mEq, IntraVENous, PRN, Starting on Tue08/28/24 at 1516, Until Discontinued, at 100 mL/hr, Potassium Replacement, K Lab Replacement Action 2.7 to 3.0 10 mEq IVPB x 6 doses (60 mEq Total) Under 2.7 CALL PROVIDER and administer 10 mEq IVPB x 6 doses (60 mEq Total) Infuse at 10 mEq/hr. Repeat Potassium lab 1 hour after final administration. Protocol not for use in patients with CrCl less than 30 mL/min. sodium chloride flush 0.9 % injection 5-40 mL 5-40 mL, IntraVENous, PRN, Starting on Tue08/28/24 at 1516, Until Discontinued, Line Care, After every IV [...] mL Midline or Central Line = 20 mL/lumen 4473 (Given - Provider: Brown Richard RN) Linked Groups Order Group 1: acetaminophen (TYLENOL) tablet 650 mgJump to med 650 mg, Oral, EVERY 6 HOURS PRN, Starting on Tue08/28/24 at 1516, Until Discontinued, Pain Mild (1-3), Fever, For temp greater than 100.4 F (38 C), Maximum dose of acetaminophen is 4000 mg from all sources in 24 hours. Or acetaminophen (TYLENOL) suppository 650 mgJump to med 650 mg, Rectal, EVERY 6 HOURS PRN, Starting on Tue08/28/24 at 1516, Until Discontinued, Pain Mild (1-3), Fever, For temp greater than 100.4 F (38 C), Administer if oral route cannot be used. Group 2: ondansetron (ZOFRAN-ODT) disintegrating tablet 4 mgJump to med 4 mg, Oral, EVERY 8 HOURS PRN, Starting on Tue08/28/24 at 1516, Until Discontinued, Nausea, Vomiting Or ondansetron (ZOFRAN) injection 4 mgJump to med 4 mg, IntraVENous, EVERY 6 HOURS PRN, Starting on Tue08/28/24 at 1516, Until Discontinued, Nausea, Vomiting, Administer if oral route cannot be used. Group 3: potassium chloride (KLOR-CON M) extended release tablet 40 mEqJump to med 40 mEq, Oral, PRN, Starting on Tue08/28/24 at 1516, Until Discontinued, Potassium Replacement, May give alternative linked oral order (ordered as effervescent, packet, or liquid solution) if patient unable to tolerate tablet. K Lab Replacement Action 3.1 to 3.5 40 mEq ORAL x 1 Under 3.1 Refer to IV replacement protocol Recheck K level in AM. Protocol not for use in patients with CrCl less than 30 mL/min. Do not crush, chew, or suck on tablet. Tablet may also be broken in half and each half swallowed separately. Or potassium bicarb-citric acid (EFFER-K) effervescent tablet 40 mEqJump to med 40 mEq, Oral, PRN, Starting on Tue08/28/24 at 1516, Until Discontinued, Per Potassium Replacement Protocol, Administer as alternative if patient unable to tolerate oral tablet. K Lab Replacement Action 3.1 to 3.5 40 mEq ORAL x 1 Under 3.1 Refer to IV replacement protocol Recheck K level in AM. Protocol not for use in patients with CrCl less than 30 mL/min. Do not chew or crush. Dissolve flavored tablets completely in 3 to 4 ounces of cold water; unflavored tablets may be dissolved in 3 to 4 ounces of cold juice. Patient to sip slowly over a 5 to 10 minute period. May further dilute if GI adverse effects occur. Or potassium chloride 10 mEq/100 mL IVPB (Peripheral Line)Jump to med 10 mEq, IntraVENous, PRN, Starting on Tue08/28/24 at 1516, Until Discontinued, at 100 mL/hr, Potassium Replacement, K Lab Replacement Action 2.7 to 3.0 10 mEq IVPB x 6 doses (60 mEq Total) Under 2.7 CALL PROVIDER and administer 10 mEq IVPB x 6 doses (60 mEq Total) Infuse at 10 mEq/hr. Repeat Potassium lab 1 hour after final administration. Protocol not for use in patients with CrCl less than 30 mL/min. Ordered Prescriptions (unrec ognized section and content) Prescription Sig Dispensed Refills Start Date End Da te polyethylene glycol (GLYCOLAX) 17 GM/SCOOP powder Take 17 g by mouth daily for 20 days 116 g 2 08/30/2024 09/19/2024 senna (SENOKOT) 8.6 MG tablet Take 1 tablet by mouth daily for 15 days 15 tablet 08/30/2024 09/14/2024 docusate (COLACE, DULCOLAX) 100 MG CAPS Take 100 mg by mouth daily for 15 days 30 capsule 1 08/30/2024 09/14/2024 polyethylene glycol (GLYCOLAX) 17 GM/SCOOP powder Take 17 g by mouth daily for 20 days 116 g 2 08/30/2024 08/30/2024 senna (SENOKOT) 8.6 MG tablet Take 1 tablet by mouth 2 times daily as needed for Constipation 60 tablet 08/30/2024 08/30/2024 docusate sodium (COLACE, DULCOLAX) 100 MG CAPS Take 100 mg by mouth daily as needed for Constipation (as needed for constipation) 30 capsule 1 08/30/2024 08/30/2024 FOR RECORDS PERTAINING TO PATIENTS WHO ARE [...] BE BASED ON THE PRIMARY CLINICAL RECORDS. [employer] provides no warranty or guarantee of the accuracy or completeness of information in this document.
[2024-08-31 14:17] LABS: Anion Gap 14.5; BUN Creatinine Ratio 15.8; Calcium 9.4 mg/dL (8.5-10.1); Carbon Dioxide 26.9 mmol/L (21.0-32.0); Chloride 104 mmol/L (98-107); Estimated GFR (African America >60 (>=60 mL/min/1.73m^2); Estimated GFR (Non-African Ame >60 (>=60 mL/min/1.73m^2); Glucose 108 mg/dL (74-106); Magnesium 1.9 mg/dL (1.8-2.4); Potassium 4.4 mmol/L (3.5-5.1); Sodium 141 mmol/L (136-145)
== END 2024-08-31 13:49 | disposition home or self-care (01) ==
LOC: LAB 13:50
PROVIDERS: PCP Nurse Practitioner Family
DX: K56.7 Ileus, unspecified (principal); R10.84 Generalized abdominal pain; E87.6 Hypokalemia
CPT/HCPCS: 36415; 80048; 83735

== ENCOUNTER 2024-09-06 07:29 | Outpatient (OUT) | payer BC, SELFPAY ==
--- OUTSIDE RECORDS SUMMARY | 2024-09-06 07:34 | XMS_ITS | CCD ---
Author Organization [facility] ion [facility] Care Team Providers Care Community Life Director Name Role Phone LEONA MORTENSEN Admitting Unavailable LEONA MORTENSEN Attending Unavailable KEVIN HERRERA Primary Care Unavailable KEVIN HERRERA Referring Unavailable [place] Procedure Practitioner Unavailab ORESTES Cruz Surgeon Unavailable JUDI YOUSSEF Primary Care Physician DONI Youssef Primary Care Provider DO Conner Griffith Emergency Provider [phone] Jennie Ayon Unavailable MD Jennie Ayon Attending [...] Consulting Unavailable CASSANDRA URBINA Unavailable FAB ., ABLTAZAR Admitting Unavailable FAB ., BALTAZAR Attending Unavailable [...] Emergency Provider DO Pete Thakkar Emergency Provider [phone] [facility], [facility] Primary Care Provider Rafa Rangel Unavailable Renny Omalley Unavailable MARQUES BRADLEY Referring Unavailable [facility], [facility] Primary Care Unavailable PAV[facility], [facility] Primary Care Unavailable KROH, MARQUES Patel Referring Unavailable KROH, MARQUES Patel Attending Unavailable IMER CHERRY Referring Unavailable PAV[facility], [facility] Primary Care Unavailable PAV[facility], [facility] Primary Care Unavailable KROH, MARQUES Patel Referring Unavailable KAITLYN TORRES Attending Unavailable KROHMARQUES Referring Unavailable PAV[facility], [facility] Primary Care Unavailable MELISSA MONTALVO Attending Unavailable KROH, MARQUES Patel Referring Unavailable PAV[facility], [facility] Primary Care Unavailable SLY, SLY ADEL Attending Unavailable KROHMARQUES Referring Unavailable PAV[facility], [facility] Primary Care Unavailable BRNENEN SHAW Attending Unavailable Orzech, Yolanda X Attending Unavailable Orzech, Yolanda X Admitting Unavailable Orzech, Yolanda X Attending Unavailable Orzech, Yolanda X Admitting Unavailable Orzech, Yolanda X Attending Unavailable Samuel Estrella Attending Unavailable LINDA Youssef-Paula Judi Joan Primary Care Provider MD Nany Imleo Attending Provider [phone] EDISON KINCAID Attending Unavailable EDISON KINCAID Attending Unavailable EDISON KINCAID Attending Unavailable Orzech, Yolanda X Attending Unavailable Judi Youssef Joan Primary Care Unavailable Asaad, Imad Admitting Unavailable Asaad, Imad Attending Unavailable Mikael, Judi Joan Primary Care Unavailable Asaad, Imad Admitting Unavailable Asaad, Imad Attending Unavailable Unallocated , Noms Provider Primary Care Provi [facility] Judi Youssef MD Unavailable KULWANT HODGE Attending Unavailable KULWANT HODGE Referring Unavailable KULWANT HODGE Attending Unavailable No, Pcp Primary Care Provider UnavailJUSTIN Jenkins Admitting Unavailable JUSTIN LUCERO Attending Unavailable NO, PCP Primary Care Unavailable Judi Disla APRN, CNP Primary Care Provide r SERGE WILD Consulting Unavailable AVASTHI, OBDULIO Admitting Unavailable AVASTHI, OBDULIO Attending Unavailable JUDI YOUSSEF Primary Care Unavailable AVASTHI, OBDULIO Consulting Unavailable Allergies Allergy Classification Reported Allergen(s) Allergy Type Date of Onset Reaction(s) Facility (9 sources) cyclobenzaprine; Translations: [CYCLOBENZAPRINE] Drug Allergy 04-28-20 18 Swelling of Lip/Tongue/Thr oat, Swelling of Lip/Tongue/Thr oat, throat swelling [facility] Repository (10 sources) Penicillins; Translations: [PENICILLINS] Drug allergy (disorder) 09-02-20 15 Rash [facility] Repository (20 sources) cyclobenzaprine; Translations: [cyclobenzaprine] Drug Allergy 04-28-20 18 Pharyngeal swelling (finding), Swelling, Other (See Comments) [facility] (20 sources) Penicillin; Translations: [penicillin] Drug Allergy 04-28-20 18 Swelling (morphologic abnormality), Swelling [facility] (12 sources) penicillAMINE Drug Allergy 04-26-20 24 rash [facility] (2 sources) cyclobenzaprine Drug Allergy 03-23-20 16 [facility] (1 source) traMADol Drug Allergy [facility] (1 source) traMADol Drug Allergy [facility] (1 source) cyclobenzaprine Drug Allergy 05-01-20 [facility] Repository (1 source) penicillAMINE Drug Allergy 05-01-20 24 [facility] Repository (1 source) Penicillins Drug allergy (disorder) 05-01-20 [facility] Repository (6 sources) penicillAMINE Drug Allergy 05-01-20 24 Rash [facility] (6 sources) Penicillins Drug Allergy 04-28-20 18 Rash, Swelling [facility] (2 sources) Penicillins Propensity to adverse reactions to drug 04-28-20 18 Other (See Comments), Rash, Swelling [facility] Medications Current Medications Medication Drug Class(es) [...] day(s), # 90 tab(s), Refills(s) 0, [id number] 170, cm, 01/28/22 13:40:00 EDT, Height/Length [...] April 13, 2018 11:34am polyethylene glycol 3350 13068 mg powder for oral solution (8 sources) [...] 2023 12:00am May 11, 2024 8:09am sennosides, custodial 8.6 mg oral tablet (3 sources) Start: [...] tab(s), Refills(s) 0, Pharmacy: [facility]/pharmacy #[id number], 170, cm, 09/20/20 16:03:00 EST, Height/Length Dosing, 87.5, kg, 09/20/20 16:03:00 EST, Weight Dosing Start Date: 09/20/20 Status: Ordered Completed/Discontinued Medications Medication Drug Class(es) Dates Sig (Normalized) Sig (Original) acetaminophen 325 mg / HYDROcodone bitartrate 5 mg oral tablet (12 sources) Opioid Agonist Start: 06-21-2019 End: 02-15-2023 take 1 tablet by mouth every six hours Hydrocodone-Acetami nophen (Muir) 5-325 mg Tablet Discontinued 1 TAB PO Q6H June 21, 2019 12:00am February 15, 2023 9:46am Start: 11-12-2018 End: 01-30-2019 take 1 tablet by mouth every four to six hours Hydrocodone-Acetaminophen (Muir) 5-325 mg tablet Discontinued 1 TAB PO [...] 15, 2023 9:47am take 1 tablet by aan th every twenty-four hours Triamterene-HCTZ 37.5-25 MG [...] 60 mg by mouth twice daily Pyridostigmine Banks Discontinued 60 MG PO Twice daily 60 [...] Other correction (current) drug therapy; 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] Onset: 11-30-2022 Episodic Other [...] Anion gap [Moles/Vol] 11 mmol/L Normal 9-16 [facility] Comment on above: Performed By: #### P HO, BMPX, MG, CDP #### [facility] [address] [place] [address] Attic Blower: Josef Rivera MD Calcium [Mass/Vol] 9.4 mg/dL Normal 8.6-10.4 [facility] Comment on above: Performed By: #### P HO, BMPX, MG, CDP #### [facility] [address] [place] [address] Attic Blower: Josef Rivera MD Chloride [Moles/Vol] 105 mmol/L Normal 98-107 [facility] Comment on above: Performed By: #### P HO, BMPX, MG, CDP #### [facility] [address] [place] [address] Attic Blower: Josef Rivera MD CO2 [Moles/Vol] 24 mmol/L Normal 20-31 [facility] Comment on above: Performed By: #### P HO, BMPX, MG, CDP #### [facility] [address] [place] [address] Attic Blower: Josef Rivera MD Creatinine [Mass/Vol] 0.8 mg/dL Normal 0.6-0.9 [facility] Comment on above: Performed By: #### P HO, BMPX, MG, CDP #### [facility] [address] [place] [address] Attic Blower: Josef Rivera MD GFR/1.73 sq M.predicted among non-blacks MDRD (S/P/Bld) [Vol rate/Area] 88 mL/min/{1.73_m2} Normal >60 [facility] Comment on above: Result Comment: These [...] secretion. Performed By: #### P HO, BMPX, MG, CDP #### [facility] [address] [place] [address] Attic Blower: Josef Rivera MD Glucose [Mass/Vol] 107 mg/dL High 74-99 [facility] Comment on above: Performed By: #### P HO, BMPX, MG, CDP #### [facility] [address] [place] [address] 816[address] Attic Blower: Josef Rivera MD Potassium [Moles/Vol] 3.8 mmol/L Normal 3.7-5.3 [facility] Comment on above: Performed By: #### P HO, BMPX, MG, CDP #### [facility] [address] [place] [address] Attic Blower: Josef Rivera MD Sodium [Moles/Vol] 140 mmol/L Normal 136-145 [facility] Comment on above: Performed By: #### P HO, BMPX, MG, CDP #### [facility] [address] [place], [place] [address], [place] [address] Attic Blower: Josef Rivera MD Urea nitrogen [Mass/Vol] 5 mg/dL Low 6-20 [facility] Comment on above: Performed By: #### P HO, BMPX, MG, CDP #### [facility] [address] [place], [place] [id number] Attic Blower: Josef Rivera MD Basic Metabolic Panel w/ Ref galen to MGon 08-30-2024 Anion gap [Moles/Vol] 11 mmol/L 9 - 16 mmol/L [facility] Calcium [Mass/Vol] 9.4 mg/dL 8.6 - 10. 4 mg/dL [facility] Chloride [Moles/Vol] 105 mmol/L 98 - 10 7 mmol/L [facility] CO2 [Moles/Vol] 24 mmol/L 20 - 31 mmol/L [facility] Creatinine [Mass/Vol] 0.8 mg/dL 0.6 - 0.9 mg/dL [facility] Nexamp Est, Glom Filt Rate 88 - PINF [facility] Comment on above: These results are not [...] 107 mg/dL High 74 - 99 mg/dL [facility] Interpretation and review of laboratory results Abnormal [facility] Potassium [Moles/Vol] 3.8 mmol/L 3.7 - 5.3 mmol/L [facility] Sodium [Moles/Vol] 140 mmol/L 136 - 145 mmol/L [facility] Urea nitrogen [Mass/Vol] 5 mg/dL Low 6 - 20 mg/dL [facility] CBC with Auto Differentialon 08-30-2024 Basophils (Bld) [#/Vol] 0.03 10*3/uL [facility] Basophils/100 WBC (Bld) 1 % 0 - 2 % [facility] Eosinophils (Bld) [#/Vol] 0.27 10*3/uL [facility] Eosinophils/100 WBC (Bld) 5 % High 1 - 4 % [facility] Erythrocyte distribution width (RBC) [Ratio] 12.7 % 11.8 - 14.4 % [facility] Hematocrit (Bld) [Volume fraction] 37.4 % 36.3 - 47.1 % [facility] Hemoglobin (Bld) [Mass/Vol] 11.5 g/dL Low 11.9 - 15.1 g/dL [facility] Immature granulocytes (Bld) [#/Vol] [facility] Immature granulocytes/100 WBC (Bld) 0 % 0 [facility] Interpretation and review of laboratory results Abnormal [facility] Lymphocytes/100 WBC (Bld) 25 % 24 - 43 % [facility] Lymphocytes/100 WBC (Bld) 1.35 % [facility] MCH (RBC) [Entitic mass] 28.8 pg 25.2 - 33.5 pg [facility] MCHC (RBC) [Mass/Vol] 30.7 g/dL 28.4 - 34.8 g/dL [facility] MCV (RBC) [Entitic vol] 93.5 fL 82.6 - 102.9 fL [facility] Monocytes/100 WBC (Bld) 9 % 3 - 12 % [facility] Monocytes/100 WBC (Bld) 0.46 % [facility] Neutrophils/100 WBC (Bld) 60 % 36 - 65 % [facility] Nucleated RBC/100 WBC (Bld) [Ratio] 0.0 % 0.0 per 100 WBC [facility] Platelet mean volume (Bld) [Entitic vol] 9.1 fL 8.1 - 13.5 fL [facility] Platelets (Bld) [#/Vol] 321 10*3/uL [facility] RBC (Bld) [#/Vol] 4.00 10*6/uL 3.95 - 5.1 1 m/uL [facility] Segmented neutrophils/100 WBC (Bld) 3.27 % [facility] WBC other (Bld) [#/Vol] 5.4 [facility] CBC with Diffon 08-30-2024 Abs. Basophil 0.03 k/uL Normal 0.00-0.20 [facility] Comment on above: Performed By: #### P HO, BMPX, MG, CDP #### [facility] [address] [place] [address] Attic Blower: Josef Rivera MD Abs.Imm.Granulocyte <0.03 Normal 0.00-0.30 [facility] Comment on above: Performed By: #### P HO, BMPX, MG, CDP #### [facility] [address] [place] [address] Attic Blower: Josef Rivera MD Abs.Neutrophil (Seg) 3.27 k/uL Normal 1.50-8.10 [facility] Comment on above: Performed By: #### P HO, BMPX, MG, CDP #### [facility] [address] [place] [address] Attic Blower: Josef Rivera MD Basophils/100 WBC (Bld) 1 % Normal 0-2 [facility] Comment on above: Performed By: #### P HO, BMPX, MG, CDP #### [facility] [address] [place] [address]71 Attic Blower: Josef Rivera MD Eosinophils (Bld) [#/Vol] 0.27 10*3/uL Normal 0.00-0.44 [facility] Comment on above: Performed By: #### P HO, BMPX, MG, CDP #### [facility] [address] [place] [address] Attic Blower: Josef Rivera MD Eosinophils/100 WBC (Bld) 5 % High 1-4 [facility] Comment on above: Performed By: #### P HO, BMPX, MG, CDP #### [facility] [address] [place] [address]3417 Attic Blower: Josef Rivera MD Erythrocyte distribution width (RBC) [Ratio] 12.7 % Normal 11.8-14.4 [facility] Comment on above: Performed By: #### P HO, BMPX, MG, CDP #### [facility] [address] [place] [address]642 Attic Blower: Josef Rivera MD Hematocrit (Bld) [Volume fraction] 37.4 % Normal 36.3-47.1 [facility] Comment on above: Performed By: #### P HO, BMPX, MG, CDP #### [facility] [address] [place] [address] Attic Blower: Josef Rivera MD Hemoglobin (Bld) [Mass/Vol] 11.5 g/dL Low 11.9-15.1 [facility] Comment on above: Performed By: #### P HO, BMPX, MG, CDP #### [facility] [address] [place] [address] Attic Blower: Josef Rivera MD Immature granulocytes/100 WBC (Bld) 0 % Normal 0 [facility] Comment on above: Performed By: #### P HO, BMPX, MG, CDP #### [facility] [address] [place] [address]658 Attic Blower: Josef Rivera MD Lymphocytes (Bld) [#/Vol] 1.35 10*3/uL Normal 1.10-3.70 [facility] Comment on above: Performed By: #### P HO, BMPX, MG, CDP #### [facility] [address] [place] [address] Attic Blower: Josef Rivera MD Lymphocytes/100 WBC (Bld) 25 % Normal 24-43 [facility] Comment on above: Performed By: #### P HO, BMPX, MG, CDP #### [address] [address] Attic Blower: Josef Rivera MD MCH (RBC) [Entitic mass] 28.8 pg Normal 25.2-33.5 [facility] Comment on above: Performed By: #### P HO, BMPX, MG, CDP #### [address] [address] Attic Blower: Josef Rivera MD MCHC (RBC) [Mass/Vol] 30.7 g/dL Normal 28.4-34.8 [facility] Comment on above: Performed By: #### P HO, BMPX, MG, CDP #### [address] [address] Attic Blower: Josef Rivera MD MCV (RBC) [Entitic vol] 93.5 fL Normal 82.6-102.9 [facility] Comment on above: Performed By: #### P HO, BMPX, MG, CDP #### [address] [address] Attic Blower: Josef Rivera MD Monocytes (Bld) [#/Vol] 0.46 10*3/uL Normal 0.10-1.20 [facility] Comment on above: Performed By: #### P HO, BMPX, MG, CDP #### [facility] [address] [place] [address] Attic Blower: Josef Rivera MD Monocytes/100 WBC (Bld) 9 % Normal 3-12 [facility] Comment on above: Performed By: #### P HO, BMPX, MG, CDP #### [facility] [address] [place] [address] 19288 Attic Blower: Josef Rivera MD Neutrophil (Seg) 60 % Normal 36-65 [facility] Comment on above: Performed By: #### P HO, BMPX, MG, CDP #### [facility] [address] [place] [address]1986 Attic Blower: Josef Rivera MD NRBC Automated 0.0 per 100 WBC Normal 0.0 [facility] Comment on above: Performed By: #### P HO, BMPX, MG, CDP #### [facility] [address] [place] [address] 22378 Attic Blower: Josef Rivera MD Platelet mean volume (Bld) [Entitic vol] 9.1 fL Normal 8.1-13.5 [facility] Comment on above: Performed By: #### P HO, BMPX, MG, CDP #### [facility] [address] [place] [address] 9[address]01 Attic Blower: Josef Rivera MD Platelets (Bld) [#/Vol] 321 10*3/uL Normal 138-453 [facility] Comment on above: Performed By: #### P HO, BMPX, MG, CDP #### [facility] [address] [place] [address] Attic Blower: Josef Rivera MD RBC (Bld) [#/Vol] 4.00 10*6/uL Normal 3.95-5.11 [facility] Comment on above: Performed By: #### P HO, BMPX, MG, CDP #### [facility] [address] [place] [address]22 Attic Blower: Josef Rivera MD WBC (Bld) [#/Vol] 5.4 10*3/uL Normal 3.5-11.3 [facility] Comment on above: Performed By: #### P HO, BMPX, MG, CDP #### [facility] [address] [place] [address]66 Attic Blower: Josef Rivera MD Glucose,Whole Bloodon 2023 Glucose [Mass/Vol] 104 mg/dL Normal 65-105 [facility] Glucose [Mass/Vol] 120 mg/dL High 65-105 [facility] Glucose [Mass/Vol] 97 mg/dL Normal 65-105 [facility] POC Glucose Fingerstickon Glucose [Mass/Vol] 104 mg/dL 65 - 105 mg/dL [facility] Glucose [Mass/Vol] 120 mg/dL High 65 - 105 mg/dL [facility] Interpretation and review of laboratory results Abnormal [facility] Glucose [Mass/Vol] 97 mg/dL 65 - 105 mg/dL [facility] Basic Metab w/rfx MGon 08-29 Anion gap [Moles/Vol] 12 mmol/L Normal 9-16 [facility] Comment on above: Performed By: #### P HO, BMPX, MG, CDP #### [facility] [address] [place] [address]6725 Attic Blower: Josef Rivera MD Calcium [Mass/Vol] 8.9 mg/dL Normal 8.6-10.4 [facility] Comment on above: Performed By: #### P HO, BMPX, MG, CDP #### [facility] [address] [place] [address] 20782 Attic Blower: Josef Rivera MD Chloride [Moles/Vol] 106 mmol/L Normal 98-107 [facility] Comment on above: Performed By: #### P HO, BMPX, MG, CDP #### [facility] [address] [place] [address] [phone] Attic Blower: Josef Rivera MD CO2 [Moles/Vol] 22 mmol/L Normal 20-31 [facility] Comment on above: Performed By: #### P HO, BMPX, MG, CDP #### [facility] [address] [place] [address] [phone] Attic Blower: Josef Rivera MD Creatinine [Mass/Vol] 0.7 mg/dL Normal 0.6-0.9 [facility] Comment on above: Performed By: #### P HO, BMPX, MG, CDP #### [facility] [address] [place] [address] 35674 Attic Blower: Joesf Rivera MD GFR/1.73 sq M.predicted among non-blacks MDRD (S/P/Bld) [Vol rate/Area] mL/min/{1.73_m2} Normal >60 [facility] Comment on above: Result Comment: These [...] secretion. Performed By: #### P HO, BMPX, MG, CDP #### [facility] [address] [place] [address] Attic Blower: Josef Rivera MD Glucose [Mass/Vol] 100 mg/dL High 74-99 [facility] Comment on above: Performed By: #### P HO, BMPX, MG, CDP #### [facility] [address] [place] [address] 07455 Attic Blower: Josef Rivera MD Potassium [Moles/Vol] 3.4 mmol/L Low 3.7-5.3 [facility] Comment on above: Performed By: #### P HO, BMPX, MG, CDP #### [facility] [address] [place] [address] 27520 Attic Blower: Josef Rivera MD Sodium [Moles/Vol] 140 mmol/L Normal 136-145 [facility] Comment on above: Performed By: #### P HO, BMPX, MG, CDP #### [facility] [address] [place] [address] Attic Blower: Josef Rivera MD Urea nitrogen [Mass/Vol] 9 mg/dL Normal 6-20 [facility] Comment on above: Performed By: #### P HO, BMPX, MG, CDP #### [facility] [address] [place], [place] [phone] Attic Blower: Josef Rivera MD Basic Metabolic Panel w/ Ref galen to MGon 08-29-2024 Anion gap [Moles/Vol] 12 mmol/L 9 - 16 mmol/L [facility] Calcium [Mass/Vol] 8.9 mg/dL 8.6 - 10. 4 mg/dL [facility] Chloride [Moles/Vol] 106 mmol/L 98 - 10 7 mmol/L [facility] CO2 [Moles/Vol] 22 mmol/L 20 - 31 mmol/L [facility] Creatinine [Mass/Vol] 0.7 mg/dL 0.6 - 0.9 mg/dL [facility] Est, Glom Filt Rate - PINF [facility] Comment on above: These results are not [...] 100 mg/dL High 74 - 99 mg/dL [facility] Interpretation and review of laboratory results Abnormal [facility] Potassium [Moles/Vol] 3.4 mmol/L Low 3.7 - 5.3 mmol/L [facility] Sodium [Moles/Vol] 140 mmol/L 136 - 145 mmol/L [facility] Urea nitrogen [Mass/Vol] 9 mg/dL 6 - 20 mg/dL [facility] CBC with Auto Differentialon 08-29-2024 Basophils (Bld) [#/Vol] [facility] Basophils/100 WBC (Bld) 0 % 0 - 2 % [facility] Eosinophils (Bld) [#/Vol] 0.24 10*3/uL [facility] Eosinophils/100 WBC (Bld) 4 % 1 - 4 % [facility] Erythrocyte distribution width (RBC) [Ratio] 13.1 % 11.8 - 14.4 % [facility] Hematocrit (Bld) [Volume fraction] 35.8 % Low 36.3 - 47.1 % [facility] Hemoglobin (Bld) [Mass/Vol] 11.2 g/dL Low 11.9 - 15.1 g/dL [facility] Immature granulocytes (Bld) [#/Vol] [facility] Immature granulocytes/100 WBC (Bld) 0 % 0 [facility] Interpretation and review of laboratory results Abnormal [facility] Lymphocytes/100 WBC (Bld) 25 % 24 - 43 % [facility] Lymphocytes/100 WBC (Bld) 1.43 % [facility] MCH (RBC) [Entitic mass] 29.2 pg 25.2 - 33.5 pg [facility] MCHC (RBC) [Mass/Vol] 31.3 g/dL 28.4 - 34.8 g/dL [facility] MCV (RBC) [Entitic vol] 93.2 fL 82.6 - 102.9 fL [facility] Monocytes/100 WBC (Bld) 7 % 3 - 12 % [facility] Monocytes/100 WBC (Bld) 0.39 % [facility] Neutrophils/100 WBC (Bld) 63 % 36 - 65 % [facility] Nucleated RBC/100 WBC (Bld) [Ratio] 0.0 % 0.0 per 100 WBC [facility] Platelet mean volume (Bld) [Entitic vol] 9.2 fL 8.1 - 13.5 fL [facility] Platelets (Bld) [#/Vol] 318 10*3/uL [facility] RBC (Bld) [#/Vol] 3.84 10*6/uL Low 3.95 - 5.1 1 m/uL [facility] Segmented neutrophils/100 WBC (Bld) 3.62 % [facility] WBC other (Bld) [#/Vol] 5.7 [facility] CBC with Diffon 08-29-2024 Abs. Basophil <0.03 Normal 0.00-0.20 [facility] Comment on above: Performed By: #### P HO, BMPX, MG, CDP #### [facility] [address] [place] [phone] Attic Blower: Josef Rivera MD Abs.Imm.Granulocyte <0.03 Normal 0.00-0.30 [facility] Comment on above: Performed By: #### P HO, BMPX, MG, CDP #### [facility] [address] [place] [address] Attic Blower: Josef Rivera MD Abs.Neutrophil (Seg) 3.62 k/uL Normal 1.50-8.10 [facility] Comment on above: Performed By: #### P HO, BMPX, MG, CDP #### [facility] [address] [place] [address] Attic Blower: Josef Rivera MD Basophils/100 WBC (Bld) 0 % Normal 0-2 [facility] Comment on above: Performed By: #### P HO, BMPX, MG, CDP #### [facility] [address] [place] [address] Attic Blower: Josef Rivera MD Eosinophils (Bld) [#/Vol] 0.24 10*3/uL Normal 0.00-0.44 [facility] Comment on above: Performed By: #### P HO, BMPX, MG, CDP #### [facility] [address] [place] [address]7987 Attic Blower: Josef Rivera MD Eosinophils/100 WBC (Bld) 4 % Normal 1-4 [facility] Comment on above: Performed By: #### P HO, BMPX, MG, CDP #### [facility] [address] [place] [address] Attic Blower: Josef Rivera MD Erythrocyte distribution width (RBC) [Ratio] 13.1 % Normal 11.8-14.4 [facility] Comment on above: Performed By: #### P HO, BMPX, MG, CDP #### [facility] [address] [place] [address] Attic Blower: Josef Rivera MD Hematocrit (Bld) [Volume fraction] 35.8 % Low 36.3-47.1 [facility] Comment on above: Performed By: #### P HO, BMPX, MG, CDP #### [facility] [address] [place] [address] Attic Blower: Josef Rivera MD Hemoglobin (Bld) [Mass/Vol] 11.2 g/dL Low 11.9-15.1 [facility] Comment on above: Performed By: #### P HO, BMPX, MG, CDP #### [facility] [address] [place] [address] Attic Blower: Josef Rivera MD Immature granulocytes/100 WBC (Bld) 0 % Normal 0 [facility] Comment on above: Performed By: #### P HO, BMPX, MG, CDP #### [facility] [address] [place] [address] Attic Blower: Josef Rivera MD Lymphocytes (Bld) [#/Vol] 1.43 10*3/uL Normal 1.10-3.70 [facility] Comment on above: Performed By: #### P HO, BMPX, MG, CDP #### [facility] [address] [place] [address] Attic Blower: Josef Rivera MD Lymphocytes/100 WBC (Bld) 25 % Normal 24-43 [facility] Comment on above: Performed By: #### P HO, BMPX, MG, CDP #### [address] [address] Attic Blower: Josef Rivera MD MCH (RBC) [Entitic mass] 29.2 pg Normal 25.2-33.5 [facility] Comment on above: Performed By: #### P HO, BMPX, MG, CDP #### [address] [address] Attic Blower: Josef Rivera MD MCHC (RBC) [Mass/Vol] 31.3 g/dL Normal 28.4-34.8 [facility] Comment on above: Performed By: #### P HO, BMPX, MG, CDP #### [address] [address] Attic Blower: Josef Rivera MD MCV (RBC) [Entitic vol] 93.2 fL Normal 82.6-102.9 [facility] Comment on above: Performed By: #### P HO, BMPX, MG, CDP #### [address] [address] Attic Blower: Josef Rivera MD Monocytes (Bld) [#/Vol] 0.39 10*3/uL Normal 0.10-1.20 [facility] Comment on above: Performed By: #### P HO, BMPX, MG, CDP #### [address] [address] Attic Blower: Josef Rivera MD Monocytes/100 WBC (Bld) 7 % Normal 3-12 [facility] Comment on above: Performed By: #### P HO, BMPX, MG, CDP #### [address] [address] Attic Blower: Josef Rivera MD Neutrophil (Seg) 63 % Normal 36-65 [facility] Comment on above: Performed By: #### P HO, BMPX, MG, CDP #### [address] [address] Attic Blower: Josef Rivera MD NRBC Automated 0.0 per 100 WBC Normal 0.0 [facility] Comment on above: Performed By: #### P HO, BMPX, MG, CDP #### [address] [address] Attic Blower: Josef Rivera MD Platelet mean volume (Bld) [Entitic vol] 9.2 fL Normal 8.1-13.5 [facility] Comment on above: Performed By: #### P HO, BMPX, MG, CDP #### [address] [address] Attic Blower: Josef Rivera MD Platelets (Bld) [#/Vol] 318 10*3/uL Normal 138-453 [facility] Comment on above: Performed By: #### P HO, BMPX, MG, CDP #### [address] [address] Attic Blower: Josef Rivera MD RBC (Bld) [#/Vol] 3.84 10*6/uL Low 3.95-5.11 [facility] Comment on above: Performed By: #### P HO, BMPX, MG, CDP #### [address] [address] Attic Blower: Josef Rivera MD WBC (Bld) [#/Vol] 5.7 10*3/uL Normal 3.5-11.3 [facility] Comment on above: Performed By: #### P HO, BMPX, MG, CDP #### [address] [address] Attic Blower: Josef Rivera MD Glucose,Whole Bloodon 2023 Glucose [Mass/Vol] 112 mg/dL High 65-105 [facility] Glucose [Mass/Vol] 114 mg/dL High 65-105 [facility] Glucose [Mass/Vol] 104 mg/dL Normal 65-105 [facility] Glucose [Mass/Vol] 106 mg/dL High 65-105 [facility] Magnesiumon 08-29-2024 Magnesium [Mass/Vol] 2.1 mg/dL 1.6 - 2 .6 mg/dL [facility] Magnesium [Mass/Vol] 2.1 mg/dL Normal 1.6-2.6 [facility] Comment on above: Performed By: #### P HO, BMPX, MG, CDP #### [employer] [address] [place] [address] Attic Blower: Josef Rivera MD No Panel Informationon 08-29 [facility] POC Glucose Fingerstickon Glucose [Mass/Vol] 112 mg/dL High 65 - 105 mg/dL [facility] Interpretation and review of laboratory results Abnormal [facility] Glucose [Mass/Vol] 114 mg/dL High 65 - 105 mg/dL [facility] Interpretation and review of laboratory results Abnormal [facility] Glucose [Mass/Vol] 104 mg/dL 65 - 105 mg/dL [facility] Interpretation and review of laboratory results Abnormal [facility] Phosphoruson 08-29-2024 Phosphate [Mass/Vol] 4.0 mg/dL 2.5 - 4 .5 mg/dL [facility] Phosphorus, Inorg.on Phosphorus, Inorg. 4.0 mg/dL Normal 2.5-4.5 [facility] Comment on above: Performed By: #### P HO, BMPX, MG, CDP #### [employer] [address] [place] [address] Attic Blower: Josef Rivera MD XR ABDOMEN (KUB) (SINGLE [...] likely within the antrum of the stomach. risk specialist leads overlie the upper abdomen. Iliac wings [...] Paco Richardson MD 08/29/24 Final result Normal [facility] XR Abdomen Single viewon 1. Moderate gaseous distention of the rectal vault. Gas and stool in the rectal vault. 2. Mild stool burden. No abnormally dilated small bowel loops. 3. NG tube distal tip overlying the medial right upper quadrant likely in the antrum of the stomach. [facility] RIS CONSOLIDATED EXAMINATION: ONE SUPINE XRAY [...] likely within the antrum of the stomach. risk specialist leads overlie the upper abdomen. Iliac wings and pubic rami grossly unremarkable in appearance. [facility] RIS CONSOL[facility] Paco Richardson MD - [...] likely within the antrum of the stomach. risk specialist leads overlie the upper abdomen. Iliac wings and pubic rami grossly unremarkable in appearance. IMPRESSION: 1. Moderate gaseous distention of the rectal vault. Gas and stool in the rectal vault. 2. Mild stool burden. No abnormally dilated small bowel loops. 3. NG tube distal tip overlying the medial right upper quadrant likely in the antrum of the stomach. [facility] Radiology Study observation (narrative) [facility] XR Abdomen Single viewOrdere d By: Paco Richardson on 08-29-2024 [facility] Work Phone: CBC with Auto Differentialon 08-28-2024 Basophils (Bld) [#/Vol] [facility] Basophils/100 WBC (Bld) 0 % 0 - 2 % [facility] Eosinophils (Bld) [#/Vol] 0.05 10*3/uL [facility] Eosinophils/100 WBC (Bld) 1 % 1 - 4 % [facility] Erythrocyte distribution width (RBC) [Ratio] 13.1 % 11.8 - 14.4 % [facility] Hematocrit (Bld) [Volume fraction] 37.2 % 36.3 - 47.1 % [facility] Hemoglobin (Bld) [Mass/Vol] 11.9 g/dL 11.9 - 15.1 g/dL [facility] Immature granulocytes (Bld) [#/Vol] 0.03 10*3/uL [facility] Immature granulocytes/100 WBC (Bld) 0 % 0 [facility] Interpretation and review of laboratory results Abnormal [facility] Lymphocytes/100 WBC (Bld) 11 % Low 24 - 43 % [facility] Lymphocytes/100 WBC (Bld) 0.99 % Low [facility] MCH (RBC) [Entitic mass] 29.5 pg 25.2 - 33.5 pg [facility] MCHC (RBC) [Mass/Vol] 32.0 g/dL 28.4 - 34.8 g/dL [facility] MCV (RBC) [Entitic vol] 92.3 fL 82.6 - 102.9 fL [facility] Monocytes/100 WBC (Bld) 5 % 3 - 12 % [facility] Monocytes/100 WBC (Bld) 0.40 % [facility] Neutrophils/100 WBC (Bld) 83 % High 36 - 65 % [facility] Nucleated RBC/100 WBC (Bld) [Ratio] 0.0 % 0.0 per 100 WBC [facility] Platelet mean volume (Bld) [Entitic vol] 9.2 fL 8.1 - 13.5 fL [facility] Platelets (Bld) [#/Vol] 359 10*3/uL [facility] RBC (Bld) [#/Vol] 4.03 10*6/uL 3.95 - 5.1 1 m/uL [facility] Segmented neutrophils/100 WBC (Bld) 7.44 % [facility] WBC other (Bld) [#/Vol] 8.9 [facility] CBC with Diffon 08-28-2024 Abs. Basophil <0.03 Normal 0.00-0.20 [facility] Comment on above: Performed By: #### C P, CDP #### [employer] [facility] [place] [id number] Attic Blower: Josef Rivera MD Abs.Imm.Granulocyte 0.03 k/uL Normal 0.00-0.30 [facility] Comment on above: Performed By: #### C P, CDP #### [facility] [place] [id number] Attic Blower: Josef Rivera MD Abs.Neutrophil (Seg) 7.44 k/uL Normal 1.50-8.10 [facility] Comment on above: Performed By: #### C P, CDP #### [address] [address] Attic Blower: Josef Rivera MD Basophils/100 WBC (Bld) 0 % Normal 0-2 [facility] Comment on above: Performed By: #### C P, CDP #### [address] [address] Attic Blower: Josef Rivera MD Eosinophils (Bld) [#/Vol] 0.05 10*3/uL Normal 0.00-0.44 [facility] Comment on above: Performed By: #### C P, CDP #### [address] [address] Attic Blower: Josef Rivera MD Eosinophils/100 WBC (Bld) 1 % Normal 1-4 [facility] Comment on above: Performed By: #### C P, CDP #### [address] [address] Attic Blower: Josef Rivera MD Erythrocyte distribution width (RBC) [Ratio] 13.1 % Normal 11.8-14.4 [facility] Comment on above: Performed By: #### C P, CDP #### [address] [address] Attic Blower: Josef Rivera MD Hematocrit (Bld) [Volume fraction] 37.2 % Normal 36.3-47.1 [facility] Comment on above: Performed By: #### C P, CDP #### [address] [address] Attic Blower: Josef Rivera MD Hemoglobin (Bld) [Mass/Vol] 11.9 g/dL Normal 11.9-15.1 [facility] Comment on above: Performed By: #### C P, CDP #### [address] [address] Attic Blower: Josef Rivera MD Immature granulocytes/100 WBC (Bld) 0 % Normal 0 [facility] Comment on above: Performed By: #### C P, CDP #### [place] [address] Attic Blower: Josef Rivera MD Lymphocytes (Bld) [#/Vol] 0.99 10*3/uL Low 1.10-3.70 [facility] Comment on above: Performed By: #### C P, CDP #### [place] [address] Attic Blower: Josef Rivera MD Lymphocytes/100 WBC (Bld) 11 % Low 24-43 [facility] Comment on above: Performed By: #### C P, CDP #### [address] [address] Attic Blower: Josef Rivera MD MCH (RBC) [Entitic mass] 29.5 pg Normal 25.2-33.5 [facility] Comment on above: Performed By: #### C P, CDP #### [place] [address] Attic Blower: Josef Rivera MD MCHC (RBC) [Mass/Vol] 32.0 g/dL Normal 28.4-34.8 [facility] Comment on above: Performed By: #### C P, CDP #### [address] [address] Attic Blower: Josef Rivera MD MCV (RBC) [Entitic vol] 92.3 fL Normal 82.6-102.9 [facility] Comment on above: Performed By: #### C P, CDP #### [address] [address] Attic Blower: Josef Rivera MD Monocytes (Bld) [#/Vol] 0.40 10*3/uL Normal 0.10-1.20 [facility] Comment on above: Performed By: #### C P, CDP #### [address] [address] Attic Blower: Josef Rivera MD Monocytes/100 WBC (Bld) 5 % Normal 3-12 [facility] Comment on above: Performed By: #### C P, CDP #### [address] [address] Attic Blower: Josef Rivera MD Neutrophil (Seg) 83 % High 36-65 [facility] Comment on above: Performed By: #### C P, CDP #### [address] [address] Attic Blower: Josef Rivera MD NRBC Automated 0.0 per 100 WBC Normal 0.0 [facility] Comment on above: Performed By: #### C P, CDP #### [address] [address] Attic Blower: Josef Rivera MD Platelet mean volume (Bld) [Entitic vol] 9.2 fL Normal 8.1-13.5 [facility] Comment on above: Performed By: #### C P, CDP #### [address] [address] Attic Blower: Josef Rivera MD Platelets (Bld) [#/Vol] 359 10*3/uL Normal 138-453 [facility] Comment on above: Performed By: #### C P, CDP #### [address] [address] Attic Blower: Josef Rivera MD RBC (Bld) [#/Vol] 4.03 10*6/uL Normal 3.95-5.11 [facility] Comment on above: Performed By: #### C P, CDP #### [facility] [place] [address] Attic Blower: Josef Rivera MD WBC (Bld) [#/Vol] 8.9 10*3/uL Normal 3.5-11.3 [facility] Comment on above: Performed By: #### C P, CDP #### [facility] [address] [place] [address] Attic Blower: Josef Rivera MD Comp Metabolic Profon 2023 Albumin [Mass/Vol] 4.2 g/dL Normal 3.5-5.2 [facility] Comment on above: Performed By: #### P HO, BMPX, MG, CDP #### [facility] [address] [place] [address] Attic Blower: Josef Rivera MD Albumin/Glob Ratio 1.4 Normal 1.0-2.5 [facility] Comment on above: Performed By: #### P HO, BMPX, MG, CDP #### [facility] [address] [place] [address] Attic Blower: Josef Rivera MD Alkaline Phos 162 U/L High 35-104 [facility] Comment on above: Performed By: #### P HO, BMPX, MG, CDP #### [facility] [address] [place] [address] Attic Blower: Josef Rivera MD ALT [Catalytic activity/Vol] 14 U/L Normal 10-35 [facility] Comment on above: Performed By: #### P HO, BMPX, MG, CDP #### [facility] [address] [place] [address] Attic Blower: Josef Rivera MD Anion gap [Moles/Vol] 11 mmol/L Normal 9-16 [facility] Comment on above: Performed By: #### P HO, BMPX, MG, CDP #### [facility] [address] [place] [address] Attic Blower: Josef Rivera MD AST [Catalytic activity/Vol] 23 U/L Normal 10-35 [facility] Comment on above: Performed By: #### P HO, BMPX, MG, CDP #### [facility] [address] [place] [address] Attic Blower: Josef Rivera MD Bilirubin [Mass/Vol] 0.2 mg/dL Normal 0.0-1.2 [facility] Comment on above: Performed By: #### P HO, BMPX, MG, CDP #### [facility] [address] [place] [address] Attic Blower: Josef Rivera MD Calcium [Mass/Vol] 9.4 mg/dL Normal 8.6-10.4 [facility] Comment on above: Performed By: #### P HO, BMPX, MG, CDP #### [facility] [address] [place] [address] Attic Blower: Josef Rivera MD Chloride [Moles/Vol] 104 mmol/L Normal 98-107 [facility] Comment on above: Performed By: #### P HO, BMPX, MG, CDP #### [facility] [address] [place] [address] Attic Blower: Josef Rivera MD CO2 [Moles/Vol] 23 mmol/L Normal 20-31 [facility] Comment on above: Performed By: #### P HO, BMPX, MG, CDP #### [facility] [address] [place] [address] Attic Blower: Josef Rivera MD Creatinine [Mass/Vol] 0.7 mg/dL Normal 0.6-0.9 [facility] Comment on above: Performed By: #### P HO, BMPX, MG, CDP #### [facility] [address] [place] [address] Attic Blower: Josef Rivera MD GFR/1.73 sq M.predicted among non-blacks MDRD (S/P/Bld) [Vol rate/Area] mL/min/{1.73_m2} Normal >60 [facility] Comment on above: Result Comment: These [...] secretion. Performed By: #### P HO, BMPX, MG, CDP #### [facility] [address] [place] [address] Attic Blower: Josef Rivera MD Glucose [Mass/Vol] 115 mg/dL High 74-99 [facility] Comment on above: Performed By: #### P HO, BMPX, MG, CDP #### [facility] [address] [place] [address] Attic Blower: Josef Rivera MD Potassium [Moles/Vol] 4.3 mmol/L Normal 3.7-5.3 [facility] Comment on above: Performed By: #### P HO, BMPX, MG, CDP #### [facility] [address] [place] [address] Attic Blower: Josef Rivera MD Protein [Mass/Vol] 7.1 g/dL Normal 6.6-8.7 [facility] Comment on above: Performed By: #### P HO, BMPX, MG, CDP #### [facility] [address] [place] [address] Attic Blower: Josef Rivera MD Sodium [Moles/Vol] 138 mmol/L Normal 136-145 [facility] Comment on above: Performed By: #### P HO, BMPX, MG, CDP #### [facility] [address] [place], [place] [phone] Attic Blower: Josef Rivera MD Urea nitrogen [Mass/Vol] 9 mg/dL Normal 6-20 [facility] Comment on above: Performed By: #### P HO, BMPX, MG, CDP #### [facility] [address] [place], [place] [address] Attic Blower: Josef Rivera MD [facility] Metabolic [facility] 08-28-2024 Albumin [Mass/Vol] 4.2 g/dL 3.5 - 5.2 g/dL [facility] Albumin/Globulin [Mass ratio] 1.4 {ratio} 1.0 - 2.5 [facility] ALP [Catalytic activity/Vol] 162 U/L High 35 - 104 U/L [facility] ALT [Catalytic activity/Vol] 14 U/L 10 - 35 U/L [facility] Anion gap [Moles/Vol] 11 mmol/L 9 - 16 mmol/L [facility] AST [Catalytic activity/Vol] 23 U/L 10 - 35 U/L [facility] Bilirubin [Mass/Vol] 0.2 mg/dL 0.0 - 1 .2 mg/dL [facility] Calcium [Mass/Vol] 9.4 mg/dL 8.6 - 10. 4 mg/dL [facility] Chloride [Moles/Vol] 104 mmol/L 98 - 10 7 mmol/L [facility] CO2 [Moles/Vol] 23 mmol/L 20 - 31 mmol/L [facility] Creatinine [Mass/Vol] 0.7 mg/dL 0.6 - 0.9 mg/dL [facility] Est, Glom Filt Rate - PINF [facility] Comment on above: These results are not [...] 115 mg/dL High 74 - 99 mg/dL [facility] Interpretation and review of laboratory results Abnormal [facility] Potassium [Moles/Vol] 4.3 mmol/L 3.7 - 5.3 mmol/L [facility] Protein [Mass/Vol] 7.1 g/dL 6.6 - 8.7 g/dL [facility] Sodium [Moles/Vol] 138 mmol/L 136 - 145 mmol/L [facility] Urea nitrogen [Mass/Vol] 9 mg/dL 6 - 20 mg/dL [facility] Glucose,Whole Bloodon 2023 Glucose [Mass/Vol] 100 mg/dL Normal 65-105 [facility] Lactic Acidon 08-28-2024 Lactic Acid, Whole Blood 1.2 mmol/L 0.7 - 2.1 mmol/L [facility] Lactic Acid,Whole Bl 1.2 mmol/L Normal 0.7-2.1 [facility] Comment on above: Performed By: #### P HO, BMPX, MG, CDP #### [employer] [address] [place] [address] Attic Blower: Josef Rivera MD Magnesiumon 08-28-2024 Magnesium [Mass/Vol] 2.1 mg/dL 1.6 - 2 .6 mg/dL [facility] Magnesium [Mass/Vol] 2.1 mg/dL Normal 1.6-2.6 [facility] Comment on above: Performed By: #### M G #### [employer] [address] [place], [place] [id number] Attic Blower: Josef Rivera MD POC Glucose Fingerstickon Glucose [Mass/Vol] 100 mg/dL 65 - 105 mg/dL [facility] XR ABDOMEN (KUB) (SINGLE AP VIEW)on 08-28-2024 [...] Rashaad Lopez MD 08/28/24 Final result Normal [facility] XR Abdomen Single viewon 1. Nonobstructive marium wel gas pattern. 2. Mild left lower lobe infiltrate, which could represent pneumonia. [facility] RIS CONSOLIDATED EXAMINATION: ONE SUPINE XRAY [...] could represent pneumonia. Bony structures appear normal. [facility] RIS CONSOLIDATED Rashaad Lopez MD - 08/28/2024 EXAMINATION: [...] lower lobe infiltrate, which could represent pneumonia. [facility] Radiology Study observation (narrative) [facility] XR Abdomen Single viewOrdere d By: Rashaad Lopez on 08-28-2024 [facility] Work Phone: Glucose (Bld) [Mass/Vol]on 09-12-2023 Glucose Blood, POC 90 mg/dL [facility] - Hematology and Cell countson 07-13-2024 HbA1c (Bld) [Mass fraction] 5.6 % [facility] No Panel Informationon 07-13 Interpretation and review of laboratory results Normal [facility] Glucose (Bld) [Mass/Vol]Orde red By: Beverly Clemons on 06-20-2024 Glucose Blood, POC 101 mg/dL [facility] - Hematology and Cell countson 06-20-2024 HbA1c (Bld) [Mass fraction] 5.8 % [facility] No Panel InformationOrdered By: Beverly Clemons on 06-20-2024 [facility] Healthcare Office Visiton 05-14-2024 Follow-up visit [id number] Marly Cardoso 1970 F Date Provider Department Center 05/14/2024 [id number]-CACPGLEDISON KINCAID MICHAEL Macario [facility] Family History Problem Relation Age of Onset Heart attack Father Family Status - Relation Status Age at Father Level of Service:79894 [place] OFFICE/OUTPATIENT ESTABLISHED MOD MDM 30 MIN Reason for Visit and Comments: Hypertension [586510] - Patient here for 2 mo follow up. She was started on lisinopril 10mg daily at last visit. She presented to the ED last month for abdominal pain. EKG was done and showed bradycardia. Palpitations [] - Not as bad, still has them Shortness of Breath [] - Improving Normal [facility] [place] 05-11-2024 L Specimen: [id number] Received: 05/11/24 Status: SOUT Req Num: [id number] Spec Type: Surgical Subm Dr: Jennie Ayon MD Tissues: A GASTRIC FOR HP (GASTRIC R/O H PYLORI) B Esophagus Biopsy (ESOPHAGUS BX R/O BARRETTS) Procedures: HE/4, Gross/Micro L4/2, H PYLORI Age/ Patient Sex Location Account Attending Physician Constantino Cardoso 53/F [id number] Jennie Ayon MD SPEC NUM: [id number] RECD: 05/11/24 STATUS: XAVI FRANCIS NUM: [id number] [place]: 05/11/[address] [facility] [address]: Jennie Ayon MD ENTERED: 05/11/[address] [facility] [address]: SPEC TYPE: Surgical DEPT: S ENTERED BY: [id number] RECV BY: [id number] ORDERED: HE/4, Gross/Micro L4/2, H PYLORI ORDERED: HE/4, Gross/Micro L4/2, H PYLORI Supplemental Report Addendum 2 Entered: 05/18/24 Supplemental to add CPT code of immunostain: A, CPT: 67552 Addendum Signed (signature on file) Robby Smyth MD 05/18/241707 Addendum 1 Entered: 05/18/24 Supplemental for findings of H. pylori immunostain: A, -H. pylori immunostain with appropriate control is negative for identified Helicobacter organism or infection Specimen: [id number] Received: 05/11/24 Status: ALEXISBrit Francis Num: [id number] Spec Type: Surgical Subm Dr: Jennie Ayon MD Tissues: A GASTRIC FOR HP (GASTRIC R/O H PYLORI) B Esophagus Biopsy (ESOPHAGUS BX R/O BARRETTS) Procedures: JESUS/Zack, Gross/Micro L4/2, H PYLORI Patient: Constantino Cardoso Yovanny [id number] (Continued) Specimen: [id number] Received: 05/11/24 (Continued) Supplemental Report (Continued) Signed (signature on file) Robby Smyth MD 05/17/24 1326 Specimen: [id number] Received: 05/11/24 Status: XAVI Francis Num: [id number] Spec Type: Surgical Subm Dr: Jennie Ayon MD Tissues: A GASTRIC FOR HP (GASTRIC R/O H PYLORI) B Esophagus Biopsy (ESOPHAGUS BX R/O BARRETTS) Procedures: JESUS/Zack, Gross/Micro L4/2, H PYLORI Patient: Constantino Cardoso [id number] (Continued) Specimen: [id number] Received: 05/11/24-4278 (Continued) Supplemental Report (Continued) Addendum Signed (signature [...] are performed supporting the above interpretation Specimen: [id number] Received: 05/11/24 Status: XAVI Francis Num: [id number] Spec Type: Surgical Subm Dr: Jennie Ayon MD Tissues: A GASTRIC FOR HP (GASTRIC R/O H PYLORI) B Esophagus Biopsy (ESOPHAGUS BX R/O BARRETTS) Procedures: HE/4, Gross/Micro L4/2, H PYLORI Patient: MauryConstantino Hairston [id number] (Continued) Specimen: [id number] Received: 05/11/24 (Continued) Signed (signature on file) Robby Symth MD 05/17/24 1326 Specimen: [id number] Madeleine (more content not included)... Normal [facility] Reminderson 04-09-2024 Reminders Reminders From: Ani Jackson To: EU - Administrative; Sent: 02/16/2024 09:54:18 EDT Show up: 03/05/2024 09:54:00 EDT Subject: Ambulatory Reminder Due Date/Time: 05/20/2024 09:54:00 EDT Reminder/Recall Patient needs scheduled for a 3 month f/u with [facility] in [place], due back mid May. [facility] FOR PATIENT TO CALL AND SCHEDULE APPT Pt called back and scheduled appt. Normal [facility] Office Visiton 03-19-2024 Follow-up visit [id number] Mraly Cardoso 1970 F Date Provider Department Center 03/19/2024 [id number]-KDXDIYEDISON KINCAID Family History Problem Relation Age of Onset Heart attack Father Family Status - Relation Status Age at Father Level of Service:98557 [place] OFFICE/OUTPATIENT ESTABLISHED MOD MDM 30 MIN Normal [facility] Coding Summary.on 02-25-2024 Coding Summary. LHIMPmzb38LLb7gRd+PG hlYWQ +YH1KHDFsH01qsMSobH8lM1TV TElOSywgQVBQTElOSyIgbmFtZ M2wgNByTKTm IC8+JO0rTLDsUuqvwOHoq0Z9g VQ2E19oyk4iPWhzxTN5OEAiVt Xxujedi7masNb8COrhJmklUhP t LTJcoK10QCA1hW75Fd33wUXom NTis8kvnQp6CeLpHBQnDEP5kM fwMLlxh8AsQVBdJ33utQTsd4D 6 PTNfqRdasVThYpVlmEL1kN3eP Vkvlhcvt6zdhshcEul5nt97lG Wde8J8kHR6X4EgbyR0HNGhdEM g TyvggEHXhP4isxhew0cndvrvT kFlCIOuEKj3HRy9PDDnlXkqXo UnQD03IHH2WLWlnaAbI9KdFJB s pJkoXrQ4z1P8Km2FF2ODMuvpZ 1VNTUFSWTwvdGQ+WK22aj10A0 HcEksyWxp7JHYxIJR2iRU6zF6 n CUDoPIkla5Y9tQC6R4UctpRnj x1li6uaILPuJLuwH87dcSSld1 N6BNOhiWP4HSFvdNkcHdUgpZ0 3 Oyc+BKFnaQztm1FhNyaux4ceb 5bpmQh8ObcvXAPlqbLmkMplLI D4x1IqLn9vKUUtoHB6xED7vA0 i LrAoCtG5GLlxP718JkJvnGTaH ybgU91dI8QeiNG+JUQoYwf8CQ CueFlhTS1vB7DjYGHstgcodTX m aIopLR3yEJBedoizXDDdwG9vZ JCyX9w0YjJfKsD2LXelI4EbQE WyzkqtZr74xB5cRsJwElZ6BLu u N5HskmV6TYYecLCkAQasLNY8Z 85sa4H8CQWxGONyTEX0wGU5kI 1hbGlnbjogbGVmdDsgdmVydGl j SKtaPJxxI967WLNmeNyfEoHaU GluZyBEYXRlOiAgMDYvMjIvMj AyNDwvdGQ+LDKbHKS9vIplVSJ n hROkWJjfQe8okWgvbIfwFL5iL IIqapomSXIppL5mOJXqlGAueU tkDC4gEJOqnsetl736BsYtNRU 0 ACLcjSCkQ3GolF0cGfKfXXKnV JMzW9LhkVYfWGxxC687MNfuVa U8GNOtqtHqY3KeEALkaIggJbW 0 d6B4Pz2Dy7CbxevzH6KxjWZkI yDkMqpmRDi0G3DbOzrynRB+PC 22EYPbTY08CEv7CJA4pBarDIn i MDRjZ7UtwE7pLdXbRGGbEFAeG yc+PHRhYmxlIHdpZHRoPScxMD FzIiNzrVopDN2dWf2iQPMrAUP v tSjqiVXuEqWio8kqVHCqEAseE C5uyTvmY8OywXO0UKVup3g0Pn 66P64lE5RccYY+LDDwwRR6nAI 0 fK6jNmDtViA7WAajA219DwGlh BZsHprth5dgu9yadTt7PsM8YQ RtmeJzkGsjOMG4d1IgEt77G53 s IHdpZHRoPSIxNSUiIHZhbGlnb l4pkZ0qKz3+YSQdrCW7oQY1jZ 3gIuSqZrY6QKipN034KbNmfKF v Gbjev7tzp7oviJt4YdLuASMqf eStvMjyKXJ7i5XoEu92H5WcaV mnx2ExUjt2bl83rKAju4N6xWM 9 V0PwGDMljtjuyGGhtZlhCG4uS GLsprqiYKUoxW2zAMNeS6o2Nh HgLaR6AXeiW7YdzsO5IBFpvME g LKEujJBSiF2wchivl6uyeihtB vZgUMDrAEk6LCm8JQCfuSkxQp YvOKW5KtM4EFK8lDHkrM7raQv n qtslrH9vUbc+AWT4pSZcnHIZY Z9fKfjjdNC+FODrWUO0sJohCT auLGFgsW8iQNOsX4f3WgDxCiG 1 CKwcC8NthlT5AHHfwTDwPXXvk SXNdG1yifywf1xwcmqwAnAbSN DfPPu1SGe9FWOjaFqgNsYaYUA 0 DvD0NXH6nABefD1ykVtleknsp G9wOyc+PmzfmAwiBYC2ZZv3P7 GkKgd2FDMqgMhkWJ7uzVBuZBi u Pb7qdXznuTjoBV7oDFMldqgoa 726HoHxx2nuVTUglNQaPVhyUA A3G66ub1A9OKZoKQOrAHS4cXA 4 nI7wmCzoizusgKYezFihvfMlo JicGVrcCBrbH647AQStsYksDa MeATm7E3GhArm8XYAntSpaML9 n yDZqTJosYx0zzJzslLvoWA3xM NLvyfoui702InShv7hxRNQoiW ArKJemVMH6Y28fv4R7LUPfNCE w YNH7jYH7sM0lsOnqycoppSDcw XmbudKxqUqnVQmcUZwhS164IT KchAmyIoSoiGa7Y0ChHbk4TEM z qGkuBF1vvNMsAXzvIr5xtUymn YtwSQ7pFAJbjbjuc513IcFvc5 keZTYvsGIhRUwuZRE5O08sm5O 6 CCZjACPnQDY3hPV3rD0odRvrk jogbGVmdDsgdmVydGljYWwtYW lxU452MMDbvKmeAvFerHdzirA g VIldOAu1Z4CxRebmoTC+PC90Y AApRA67zQMzaQYld9pjpDx4Uv CdKUVlHSV2mTqlADast4XyIBJ t Z10lnTUhf1C4JQNioDtmsGErE bXhuOD1zZ5aGJzkuownx9hkgw czUtpge9rnoa17mD00Q58lRBd p YTEdUJYmPOUaTFIokNpyvg6ds G9wIi8+MLZraKM9gEF7gO0iYP NrZmU5QFkoO099JxXnpUJmYpk j k5yld3zwpUc2WiB4OYGvtxTkx XlaZJA7s1IoMk48J19nHKbfYM ErDXDcWJZdNAAiqVyjcs3jmN2 w Ii8+CLQkuPV6tIT9oP7rQwYnT mP7EFevN372CqIctGGwZorpJ7 2sN7GobYY+GILdOjn3QGTjcSa s EG0ydXGaCYryHi2nLJN0AkXtX cBpQEfxD9AiGMOmgqgrxalbhK V2NVNeGIHsgT82Ag8wqJluRVH w bQLVxE5lvegkw6omsmnyUfOmY CTfSIz6DXn9YGRpxTztGrQxFR Y6UzG3KXA2oHLpwG4ptXeegpj g tB4bK5JtEHFyaccdTw85sL8eG tTtDbI3PTadPwc+W7XEVLfsBE NBVGiETC3MXZMQQS42XB53hZE g w6Z1hKT7K0LrEGOsdggjawulf RA6FMOwMUThmL57zMMkTEthUw 8aw1G1p762QYSyHUTwpJ93Mn9 u fGsxQMGtdEPCcD1dgezrk8eks fizDbLfUYZwSCi1GVa5ZPUutN ifCaScAQU3XzA2QPZ1rHNqgV3 h mJtmlkhenJ7qRoh+MDkvMjMvM Tj2UMznzNM+ZOHiWXG6vFskMG mkLLVsiK2gVXLdL6e5SzYiPfX 1 ZVyiC1FqHDMqlbrrWm00dB3rF uJxPrU3SXwwX1BmhcQ9BZXjsX UkSAseIAC9Q62zr0Z6GPTgFHU w WFR3dNQ4uZ3pwNodredamWYvb RjhcxQfrBhiZXifLEiqA452ZF MgmDdbVwCmUZrqFLOmLA89JF3 8 gNKlw3B0mNJ3S4IqGPZnynlym sznuSX5OEArPSIhfF13rXTfAX bzVi7es2E2u171QGWaEQRcpN6 7 Fx2zxVgjKSPcwZIFwG4jvqfts 5coyjzrEzXgOJHtMBp2AEq2YS NzpCwrPtIqGRM0NcE0BBE8sXI h fY5ojJhnymuooM9oAxz+RmVtY PkuJN81BG07bAQwi3O1mDM7F6 KlFKNpcyukypmnbEO9ZSRsUER w eA94zVDaRYxdTj7qg0Y7r327O PDbQQXmrK66My3spLngVAUwcE WJlY8xmspnu3nzvvxaQxTcKBS w OWc5KXw2GCXqiNknUjGxEKF0K fN7BHT5rMFkpG4rhEkpvsnlbU 9wOyc+TLEtIIOqu0Ann0JjPM4 0 ZI82W6DxHzbnqRIybIF+PHRhY mxlIHdpZHRoPScxMDAlJyBzdH jiSP4oUg8pGXViFBLsyCxsyPS l QgKgb9frFSVzIVulTH4mlOmyJ 9JwrCO1DVSek8g5Pc45R28fE8 JvdXA+ADIwrPA7qVT9hT2gInE l JlX8NNjjY547TcWrjBKjHbbvv 2pmf6afgWa4CzDdCHFeimBkzC kfQQE1v5ZzZj44T00kZTxaDCW o TBUwTFKcAZSsgCxpxk6mjJ3eJ i8+SFYjkKK7pBT2cY7tHxMwQz L4OItqQ357PoVokQQhUpavJ38 s U7UciHQ+NURaRux7MOCviNndN E1yxEGaFZiuMp8bPDT6WuLpUr QmRBhdM6JmBRJwonbbinrldFE 6 PAKaZUEnbH42Hu1saHmqZv0qI QQkOUI7DBUjlCSaE8XnmR7oId PyAUZgNKOgJ4JalXXuKKpdY88 6 JDohQiG1SVJjkzHwU7YqZEQzs EfgEkQ8a0C6Os3HkQpliNWkGB 8uHaKiBCc4T2SqEvm8DXFycEc s DC0lgVJrCBrgQf6igGqkbOtwT C1lJTCsmohcn268ByQue8fuGG CtaUEjEWngUGL1E81py1T7VOK w SRXzXDR5hFX1gV3yuKwnkylwl GVmdDsgdmVydGljYWwtYWxpZ2 48ODHdsGbhIzJTAgi7Y1VzXzm 0 BFPveZfdIT1nkPYnOKuzWk9bb KkevZgdLK2nWFKdpeyrh723Oe Iae0ioBATauZYlAFzxGQF6P43 s f1U4UWRgIFPjZFD6aPX3hT5ut GlnbjogbGVmdDsgdmVydGljYW mpCNfsF929RCUqtFnzCc0HVfo 8 W7XhFjv9CLHsvSskMX4hqVQkF RodWg1xmEwchOyfEK4wRCIjcz tem065IpZrp1fjGRNmeWCmYNk t VSN0E00vd1T4PHFrKQKwQZL6g UL4hW3rrLfgsogbdWNhnPnybt BdcXvgFLamRGjiF547VRWkkHo n PlBheWVyOjwvdGQ+JA08hx63Q 3JkBnfyNlp6LNQzJTF5qCL9yV 4nKALrAQcdy4B7uVT1N0OiihE l kn2na0fwEAQtJ (more content not included)... Normal [facility] Patient Educationon 02-21-20 Patient Education [...] this condition includes: ? Antibiotic medicine. ? Sjjc-elf-wczcbcm medicines to treat discomfort. ? Drinking enough [...] these instructions at home: Medicines ? Take tmlc-ulk-lnkzplz and prescription medicines only as told by [...] Document Revie (more content not included)... Normal [facility] Urology Office/Clinic Noteon 02-21-2024 Urology [...] with voice recognition artificial intelligence software, specifically [email or web address], InstantQ and or Triggertrap. Substitutions may have occurred due to the [...] yes avoids baths/hot tubs yes avoids scented [employer] products yes urinates after sexual activity yes [...] of patients. (more content not included)... Normal [facility] Comment on above: Result Comment: [...] RUDY Lou APRN, RUDY Lou APRN, Yolanda Tejada Yolanda X FINAL REPORTS Final Report [] [...] Locations R1: This test was performed at: [facility], [address] [place] [address], [address]- , [place], [facility] Comment on above: Performed By: #### 2 [id number] #### [facility] [address] [place] [address] Lab Reportson 02-17-2024 Lab Reports [id number]#1.00TIFF [facility] Lab Reports [id number]#1.00TIFF Normal [facility] Lab Reports [id number]#1.00TIFF Normal [facility] Lab Reports [id number]#1.00TIFF Normal [facility] RAD - Ultrasound Reporton RAD - Ultrasound Report [id number]#1.00TIFF Normal [facility] Screenson 02-17-2024 Screens [id number]#1.00TIFF Normal [facility] URINALYSISOrdered By: SYSTEM SYSTEM on 02-16-2024 Bilirubin Ql (U) Negative Normal Negativemg/ dL [facility] UA Auto SS Clarity (U) Clear (02/16/24 10:01 AM) Normal Clear [facility] UA Auto SS Color (U) Light-Yellow 1 (02/16/24 10:01 AM) Normal Yellow [facility] UA Auto SS Comment on above: Interpretive Data: M icroscopic readings are only performed on those samples that meet specific criteria set forth by [facility]. Epithelial cells.squamous Auto (Urine [...] Protein Ql (U) Negative Normal Negativemg/ dL [facility] UA Auto SS RBC Ql (U) 0-3 graded/HPF Normal 0-3graded/H PF [facility] UA Auto SS Specific gravity (U) [Rel density] 1.021 *NA* (02/16/24 10:01 AM) Invalid Interpretation Code 1.005 - 1.030 [facility] UA Auto SS Urobilinogen (U) [Mass/Vol] Negative Normal Negativemg/ dL [facility] UA Auto SS WBC Auto (Urine sed) [#/Area] 0-5 graded/HPF Normal 0-5graded/H PF [facility] UA Auto SS URINALYSISOrdered By: Kimberly Santos on 02-16-2024 UA Spec Desc Clean Catch (02/16/24 10:01 AM) Normal [facility] UA Auto SS Urinalysis with Microon 02-03 Bilirubin Ql (U) Negative Normal Negative [facility] Comment on above: Performed By: #### 4 [id number] #### [facility] [address] [place] [address] Clarity (U) Clear Normal Clear [facility] Comment on above: Performed By: #### 4 [id number] #### [facility] [address] [place] [address] Color (U) Light-Yellow Normal Yellow [facility] Comment on above: Result Comment: Micr oscopic readings are only performed on those samples that meet specific criteria set forth by [facility]. Performed By: #### 4 [id number] #### [facility] [address] [place] [address] Epithelial cells.squamous Auto (Urine sed) [#/Area] 0-2 Invalid Interpretation Code [facility] Comment on above: Performed By: #### 4 [id number] #### [facility] [address] [place] [address] Glucose Ql (U) Negative Normal Negative [facility] Comment on above: Performed By: #### 4 [id number] #### [facility] [address] [place] [address] Hemoglobin Auto test strip (U) [Mass/Vol] 1+ mg/dL Abnormal Negative [facility] Comment on above: Performed By: #### 4 [id number] #### [facility] [address] [place] [address] Ketones Auto test strip Ql (U) Negative Normal Negative [facility] Comment on above: Performed By: #### 4 [id number] #### [facility] [address] [place] [address] Leukocyte esterase Auto test strip Ql (U) 75 Morgan/uL Abnormal Negative [facility] Comment on above: Performed By: #### 4 [id number] #### [facility] [address] [place] [address] Mucus Auto Ql (U) Trace Normal Negative [facility] Comment on above: Performed By: #### 4 [id number] #### [facility] [address] [place] [address] Nitrite Auto test strip Ql (U) Negative Normal Negative [facility] Comment on above: Performed By: #### 4 [id number] #### [facility] [address] [place] [address] pH (U) 5.5 [pH] Invalid Interpretation Code 5.0-9.0 [facility] Comment on above: Performed By: #### 4 [id number] #### [facility] [address] [place] [address] Protein Ql (U) Negative Normal Negative [facility] Comment on above: Performed By: #### 4 [id number] #### [facility] [address] [place] [address] RBC Ql (U) 0-3 Normal 0-3 [facility] Comment on above: Performed By: #### 4 [id number] #### [facility] [address] [place] [address] Specific gravity (U) [Rel density] 1.021 Invalid Interpretation Code 1.005-1.030 [facility] Comment on above: Performed By: #### 4 [id number] #### [facility] [address] [place] [address] Urobilinogen (U) [Mass/Vol] Negative Normal Negative [facility] Comment on above: Performed By: #### 4 [id number] #### [facility] [address] [place] [address] WBC Auto (Urine sed) [#/Area] 0-5 Normal 0-5 [facility] Comment on above: Performed By: #### 4 [id number] #### [facility] [address] [place] [address] Type of Urine collection method Clean Catch Normal [facility] Comment on above: Performed By: #### 4 [id number] #### [facility] [address] [place] [address] Office Visiton 02-15-2024 Follow-up visit [id number] Marly Cardoso 1970 F Date Provider Department Center 02/15/2024 [id number]-VXVSDAEDISON YING [facility] Amirah [facility] Family History Problem Relation Age of Onset Heart attack Father Family Status - Relation Status Age at Father Level of Service:69726 [place] OFFICE/OUTPATIENT NEW MODERATE MDM 45 MINUTES Normal [facility] ANES POSTPROC EVALon 023 ANES POSTPROC EVAL HNO ID: [id number] Author: Carlota Jeffrey MD Service: ? Author Type: Anesthesiologist Type: Anesthesia Postprocedure Evaluation Filed: 08/25/2023 5:35 PM Note Text: POST ANESTHESIA EVALUATION NOTE : 1970 Procedure Summary Date: 08/25/23 Room / Location: Gastroenterology Anesthesia Start: 1444 Anesthesia Stop: 1552 Procedure: EGD - THERAPEUTIC, EUS, OR TUBE INTERVENTIONS Diagnosis: Gastroparesis (OTHER) Scheduled Providers: Marques Bradley MD; aCrlota Jeffrey MD; Vanessa Mcmillan APRN.PACK OUT OPERATOR Responsible Provider: Carlota Jeffrey MD Anesthesia Type: [...] August 25, 2023 TIME: 5:35 PM CSN: [id number] Normal [facility] ANES PRE-OPon 08-25-2023 ANES PRE-OP HNO ID: [id number] Author: Carlota Jeffrey MD Service: ? Author [...] August 25, 2023 TIME: 11:46 AM CSN: [id number] Normal [facility] HISTORY PHYSICALon HISTORY PHYSICAL HNO ID: [id number] Author: Gavi Bourgeois MD Service: General Surgery [...] DATE: August 25, 2023 TIME: 6:57 AM [facility] NURSING PROGon 08-25-2023 NURSING PROG HNO ID: [id number] Author: Melody Walter, RN Service: Nursing Author [...] None Electronically Signed By: Melody Walter RN [facility] NURSING PROG HNO ID: [id number] Author: Pamela Osuna RN Service: ? Author [...] By: Pamela Navarro RN In Department: GASTROENTEROLOGY [facility] Magda 07-22-2023 [facility] [employer] ----- CONSTANTINO CARDOSO ([id number]) 1970 F Date Time Provider Department 07/22/23 [...] Status:Closed by EVELYN BLACK on 07/22/23 Normal [facility] ANES POSTPROC EVALon 023 ANES POSTPROC EVAL HNO ID: [id number] Author: Sly Carter MD Service: ? Author [...] Scheduled Providers: Marques Bradley MD; Amanda Bernard APRN.PACK OUT OPERATOR; Sly Carter MD Responsible Provider: Sly Carter [...] July 14, 2023 TIME: 12:26 PM CSN: [id number] Normal [facility] ANES PRE-OPon 07-14-2023 ANES PRE-OP HNO ID: [id number] Author: Sly Carter MD Service: ? Author [...] July 14, 2023 TIME: 9:11 AM CSN: [id number] Normal [facility] EGD - THERAPEUTIC, EUS, OR T UBE INTERVENTIONSon 07-14-2023 [facility] HISTORY PHYSICALon HISTORY PHYSICAL HNO ID: [id number] Author: Raúl Quintero MD Service: General Surgery [...] medications for this visit. 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 Mehrdad Carter paged : Patient Constantino Cardoso in post bed 10: Complaining of 10/10 abdominal pain (gas), mild nausea. Any further orders? Thanks! Mari Spaulding RN BSN Normal [facility] NURSING PROG HNO ID: [id number] Author: Mónica Spaulding RN Service: Nursing Author [...] Signed By: Mónica Spaulding RN BSN Normal [facility] NURSING PROG HNO ID: [id number] Author: Candace Jaramillo RN Service: ? Author [...] By: Candace Jaramillo RN In Department: GASTROENTEROLOGY [facility] SURGICAL PATHOLOGYon 023 ADDENDUM 1: [facility] Comment on above: Order Comment: Speci men Type: TISSUE SPECIMENOrdering Facility: [facility] Address: [address] [place] [address] Result Comment: Give n the background of chronic gastritis a Helicobacter pylori immunostain was performed on block A and is negative for Helicobacter pylori organisms. AEB 07/20/2023 Laboratory Developed Test (LDT) Disclaimer: Performance characteristics of immunohistochemical, immunofluorescent and chromogenic in-situ hybridization tests have been determined by the performing laboratory within [facility]???[facility] Pathology and Laboratory Medicine [place] ([facility], [facility], [facility], [facility], [facility], or [facility]) in a manner consistent with [...] at 9:30 AM Performed By: #### S ####[facility] [id number] [place] [address] [place] CASE REPORT Normal [facility] Comment on above: Order Comment: Speci men Type: TISSUE SPECIMENOrdering Facility: [facility] Address: [address] [place] [address] Result Comment: Surg [facility] Pathology Report Case: [id number] Authorizing Provider: Marques Bradley MD Collected: 07/14/2023 10:42 AM Ordering Location: Gastroenterology Received: 07/14/2023 07:34 PM Pathologist: Marilou Zacarias MD Specimen: STOMACH BIOPSY, R/O H.Pylori Performed By: #### S ####[facility] [id number] [address] OF [facility] DIAGNOSIS COMMENT Immunohistochemical stain for Helicobacter pylori is pending and will be reported as an addendum. Normal [facility] Comment on above: Order Comment: Speci men Type: TISSUE SPECIMENOrdering Facility: [facility] Address: [address] [place] [address] Performed By: #### S ####[facility] [id number] [address] OF [facility] FINAL DIAGNOSIS Normal [facility] Comment on above: Order Comment: Speci men Type: TISSUE SPECIMENOrdering Facility: [facility] Address: [address] [place] [address] Result Comment: Velma scott, biopsy: - Chronic inactive gastritis. See comment. AEB/dkclementina 07/18/2023 Performed By: #### S ####[facility] [id number] [address] [place] FINAL PERFORMING LAB Normal [facility] Comment on above: Order Comment: Speci men Type: TISSUE SPECIMENOrdering Facility: [facility] Address: [address] [place] [address] Result Comment: Diag nostic interpretation performed at [facility], [address] [place] [address] CLIA# [id number] Car Wiper: Maurisio Ritchie M.D. Performed By: #### S ####[facility] [id number] [address] [place] GROSS DESCRIPTION Normal [facility] Comment on above: Order Comment: Speci men Type: TISSUE SPECIMENOrdering Facility: [facility] Address: [address] [place] [address] Result Comment: A. S TOMACH BIOPSY Received in formalin are two pieces of hager, soft tissue aggregating to 0.5 x 0.2 x 0.2 cm. Totally submitted in one cassette. Two Gross examination performed at [address] July 14, 2023 11:10 PM Performed By: #### S ####[facility] [id number] [address] [place] Lipase Levelon 06-06-2023 Lipase [Catalytic activity/Vol] 33 U/L Normal 13-58 [facility] Comment on above: Performed By: #### 2 [id number] #### [facility] [address] [place] [address] [facility] 05-27-2023 CNPN Telephone (GENBMI) ----- CONSTANTINO CARDOSO ([id number]) 1970 F Date Time Provider Department 05/27/23 [...] EVELYN BLACK on 05/27/23 Normal [facility] GASTRIC EMPTYING SOLIDon 05-26-2023 [place] GASTRIC EMPTYING SOLID * * *Final Report* * * DATE OF EXAM: May 26 2023 11:11AM [facility] 0017 - [place] GASTRIC EMPTYING SOLID / PROCEDURE REASON: Nausea [...] RATE OF GASTRIC EMPTYING OF SOLID MEAL. [employer] Certified Network Associate: PSCB Transcribe Date/Time: May 26 2023 11:18A Dictated by : SILVANO WELSH MD This examination was interpreted and the report reviewed and electronically signed by: SILVANO WELSH MD on May 26 2023 11:18AM EST [id number] Normal [facility] CNNURSEon 05-25-2023 CNNURSE Nurse Visit (GASTMN) ----- CONSTANTINO CARDOSO ([id number]) 1970 F Date Time Provider Department 05/25/23 8:30 AM NURSE GI LAB 2 GASTMN During your visit today, we recorded the following information about you: Pedro Gonzalez LPN 05/25/2023 4:15 PM Signed Name: Constantino Cardoso [facility]#: [id number] Date: 05/25/2023 ESOPHAGEAL MANOMETRY TEST Indication: Nausea [...] .Pedro Gonzalez LPN Referring Provider: MARQUES BRADLEY [[id number]] Allergies As of Date: 05/25/2023 Noted Allergy Reaction FLEXERIL (CYCLOBENZAPRINE) 04/28/2018 7 - Swelling PENICILLIN 04/28/2018 7 - Swelling Date Reviewed: 05/06/2023 Reviewed by: Judy Michaels MA - Fully Assessed Reason for Visit: Procedure [88] Cmt: Manometry Esophageal Visit Diagnosis:Nausea [R11.0] Order(s):MANOMETRY ESOPHAGEAL [57269YFA] Order #: [id number] Prescriptions as of 05/25/2023 - dicyclomine (BENTYL) [...] Encounter Status:Closed by PEDRO GONZALEZ on 05/25/23 [facility] Magda 05-16-2023 CNPN Telephone (GENBMI) ----- CONSTANTINO CARDOSO ([id number]) 1970 F Date Time Provider Department 05/16/23 [...] Encounter Status:Closed by EVELYN BLACK on 05/16/23 [facility] CNOVon 05-06-2023 CNOV Office Visit (GENBMI ) ----- CONSTANTINO CARDOSO ([id number]) 1970 F Date Time Provider Department 05/06/23 8:50 AM MARQUES BRADLEY [facility] During your visit today, we recorded [...] for internal providers or letter via the [employer] for external providers. Chief Complaint: [...] Time: 8:15 AM Referring Provider: IMER CHERRY [[id number]] Allergies As of Date: 05/06/2023 Noted Allergy Reaction (more content not included)... Normal [facility] CNPNon 05-02-2023 CNPN Telephone (GENBMI) ----- CONSTANTINO CARDOSO ([id number]) 1970 F Date Time Provider Department 05/02/23 EVELYN BLACK GENBMI During your visit today, we recorded the following information about you: Evelyn Black, RN 05/04/2023 1:55 PM Addendum [facility] SPECIALTY CARE COORDINATION TELEPHONE ENCOUNTER Chief complaint AND duration dysphagia. Type of procedure: hernia repair hiatal with Dr. MORTENSEN in [place] February of 2019. Sending OP notes Nursing assessment (subjective/objective) . pain in chest area and getting worse, hard to breathe c/o nausea and oral intolerance, using miralax for BM Went to [place] ED March 2023 who told her she needed a stent in her heart..but her c/o were difficulty swallowing and sent pt home and referred her to [facility] and was admitted for almost a [...] HHR a year later @ OSH in [place] Recommendation: appt after records obtained, encouraged small [...] Encounter Status:Closed by EVELYN BLACK on 05/02/23 [facility] Magda 04-26-2023 CNPN Telephone (GENBMI) ----- CONSTANTINO CARDOSO ([id number]) 1970 F Date Time Provider Department 04/26/23 [...] Encounter Status:Closed by EVELYN BLACK on 04/26/23 [facility] 04-18-2023 CNPN Telephone (GENBMI) ----- CONSTANTINO CARDOSO ([id number]) 1970 F Date Time Provider Department 04/18/23 [facility] During your visit today, we recorded the [...] Ma - Fully Assessed Reason for Visit: [employer] - Other [4102] Prescriptions as of 04/18/2023 - ciprofloxacin HCl [...] Encounter Status:Closed by EVELYN BLACK on 04/18/23 [facility] 04-07-2023 CNPN Telephone (GASTSP) ----- CONSTANTINO CARDOSO ([id number]) 1970 F Date Time Provider Department 04/07/23 GUILLERMO MARTINEZ [facility] During your visit today, we [...] Status:Closed by YANCY LOPEZ on 04/07/23 Normal [facility] Alanine aminotransferase [En zymatic activity/volume] in Serum or PlasmaOrdered By: Pete Thakkar on 03-23-2023 ALT [Catalytic activity/Vol] 11 U/L 7-52 [facility] Albumin [Mass/volume] in Ser um or Plasma by Bromocresol green (BCG) dye binding methoOrdered By: Pete Thakkar on 03-23-2023 Albumin BCG dye [Mass/Vol] 4.1 g/dL 3.5-5.7 [facility] Alkaline phosphatase [Enzyma tic activity/volume] in Serum or PlasmaOrdered By: Pete Thakkar on 03-23-2023 ALP [Catalytic activity/Vol] 115 U/L 34-104 [facility] Aspartate aminotransferase [ Enzymatic activity/volume] in Serum or PlasmaOrdered By: Pete Thakkar on 03-23-2023 AST [Catalytic activity/Vol] 15 U/L 13-39 [facility] Automated erythrocytes count in urine sediment (number/area)Ordered By: Pete Thakkar on 03-23-2023 RBC Auto (Urine sed) [#/Area] 0-1 [HPF] 0-4 [facility] Automated leukocytes count i n urine sediment (number/area)Ordered By: Pete Thakkar on 03-23-2023 WBC Auto (Urine sed) [#/Area] 0-1 [HPF] 0-4 [facility] Basophils Auto (Bld) [#/Vol] Ordered By: Pete Thakkar on 03-23-2023 Basophils (Bld) [#/Vol] 0.1 10*3/uL 0.0-0.2 [facility] Basophils/100 WBC Auto (Bld) Ordered By: Pete Thakkar on 03-23-2023 Basophils/100 WBC (Bld) 1.0 % . [facility] Bilirubin Test strip Ql (U)O rdered By: Pete Thakkar on 03-23-2023 Bilirubin Ql (U) Negative Negative [facility] Bilirubin.direct [Mass/volum e] in Serum or PlasmaOrdered By: Pete Thakkar on 03-23-2023 Bilirubin.direct [Mass/Vol] 0.10 mg/dL 0.03-0.18 [facility] Bilirubin.total [Mass/volume ] in Serum or PlasmaOrdered By: Pete Thakkar on 03-23-2023 Bilirubin [Mass/Vol] 0.3 mg/dL 0.3-1.0 [facility] Calcium [Mass/volume] in Ser um or PlasmaOrdered By: Pete Thakkar on 03-23-2023 Calcium [Mass/Vol] 9.0 mg/dL 8.6-10.3 [facility] Carbon dioxide, total [Moles /volume] in Serum or PlasmaOrdered By: Pete Thakkar on 03-23-2023 CO2 [Moles/Vol] 24.5 mmol/L 21.0-31.0 [facility] Chloride [Moles/volume] in S cristine or PlasmaOrdered By: Pete Thakkar on 03-23-2023 Chloride [Moles/Vol] 111 mmol/L 98-107 [facility] Color Auto (U)Ordered By: Shoaib Thakkar on 03-23-2023 Color (U) Yellow Yellow [facility] Creatinine [Mass/volume] in Serum or PlasmaOrdered By: Pete Thakkar on 03-23-2023 Creatinine [Mass/Vol] 0.72 mg/dL 0.60-1.20 [facility] Eosinophils Auto (Bld) [#/Vo l]Ordered By: Pete Thakkar on 03-23-2023 Eosinophils (Bld) [#/Vol] 0.3 10*3/uL 0.0-0.45 [facility] Eosinophils/100 WBC Auto (Bl d)Ordered By: Pete Thakkar on 03-23-2023 Eosinophils/100 WBC (Bld) 5.0 % . [facility] Erythrocyte distribution wid th Auto (RBC) [Ratio]Ordered By: Pete Thakkar on 03-23-2023 Erythrocyte distribution width (RBC) [Ratio] 13.6 % 11.9-15.3 [facility] Globulin Calc (S) [Mass/Vol] Ordered By: Pete Thakkar on 03-23-2023 Globulin (S) [Mass/Vol] 2.9 g/dL [facility] Glucose [Mass/volume] in Ser um [...] [Volume fraction] 35.7 % 34.0-46.4 [facility] Hemoglobin [Mass/volume] in BloodOrdered By: Pete Thakkar on 03-23-2023 Hemoglobin (Bld) [Mass/Vol] 12.0 g/dL 11.8-15.4 [facility] Ketones Auto test strip (U) [Mass/Vol]Ordered By: Pete Thakkar on 03-23-2023 Ketones (U) [Mass/Vol] Negative Negative [facility] Laboratory - UrinalysisOrder ed By: Pete Thakkar on 03-23-2023 Hyaline casts LM Ql (Urine sed) None seen [LPF] 0-8 [facility] Leukocytes [#/volume] correc jun for nucleated erythrocytes in Blood by Automated counOrdered By: Pete Thakkar on 03-23-2023 WBC corrected for nucl RBC Auto (Bld) [#/Vol] 6.3 10*3/uL 3.8-11.6 [facility] Lipase [Enzymatic activity/v olume] in Serum or PlasmaOrdered By: Pete Thakkar on 03-23-2023 Lipase [Catalytic activity/Vol] 32.0 U/L 11.0-82.0 [facility] Lymphocytes Auto (Bld) [#/Vo l]Ordered By: Pete Thakkar on 03-23-2023 Lymphocytes (Bld) [#/Vol] 2.3 10*3/uL 1.00-4.8 [facility] Lymphocytes/100 WBC Auto (Bl d)Ordered By: Pete Thakkar on 03-23-2023 Lymphocytes/100 WBC (Bld) 36.1 % . [facility] MCH Auto (RBC) [Entitic mass ]Ordered By: Pete Thakkar on 03-23-2023 MCH (RBC) [Entitic mass] 29.2 pg 24.7-34.3 [facility] MCHC Auto (RBC) [Mass/Vol]Or dered By: Pete Tahkkar on 03-23-2023 MCHC (RBC) [Mass/Vol] 33.7 g/dL 32.0-35.0 [facility] MCV Auto (RBC) [Entitic vol] Ordered By: Pete Thakkar on 03-23-2023 MCV (RBC) [Entitic vol] 86.7 fL 80-100 [facility] Monocyte distribution width [Entitic volume] in Blood by AutomatedOrdered By: Pete Thakkar on 03-23-2023 Monocyte distribution width Auto (Bld) [Entitic vol] 16.44 % 0.00-20.00 [facility] Monocytes Auto (Bld) [#/Vol] Ordered By: Pete Thakkar on 03-23-2023 Monocytes (Bld) [#/Vol] 0.5 10*3/uL 0.0-0.8 [facility] Monocytes/100 WBC Auto (Bld) Ordered By: Pete Thakkar on 03-23-2023 Monocytes/100 WBC (Bld) 7.7 % . [facility] Neutrophils Auto (Bld) [#/Vo l]Ordered By: Pete Thakkar on 03-23-2023 Neutrophils (Bld) [#/Vol] 3.2 10*3/uL 1.8-7.7 [facility] Neutrophils/100 WBC Auto (Bl d)Ordered By: Pete Thakkar on 03-23-2023 Neutrophils/100 WBC (Bld) 50.2 % . [facility] Nitrite Test strip Ql (U)Ord ered By: Pete Thakkar on 03-23-2023 Nitrite Ql (U) Negative Negative [facility] No Panel InformationOrdered By: Pete Thakkar on 03-23-2023 Estimated GFR (CKD-EPI) > 60.0 mL/Min [facility] Creatinine Clearance (Chem 105.27 [facility] Nucleated erythrocytes [Pres ence] in Blood by Automated countOrdered By: Pete Thakkar on 03-23-2023 Nucleated RBC Auto Ql (Bld) 0.1 /100{WBC} 0-0.5 [facility] Platelet mean volume Auto (B ld) [Entitic vol]Ordered By: Pete Thakkar on 03-23-2023 Platelet mean volume (Bld) [Entitic vol] 7.6 fL 6.3-10.7 [facility] Platelets Auto (Bld) [#/Vol] Ordered By: Pete Thakkar on 03-23-2023 Platelets (Bld) [#/Vol] 357 10*3/uL 150-450 [facility] Potassium [Moles/volume] in Serum or PlasmaOrdered By: Pete Thakkar on 03-23-2023 Potassium [Moles/Vol] 3.6 mmol/L 3.5-5.1 [facility] Protein Auto test strip (U) [Mass/Vol]Ordered By: Pete Thakkar on 03-23-2023 Protein (U) [Mass/Vol] Negative Negative [facility] Protein [Mass/volume] in Ser um or PlasmaOrdered By: Pete Thakkar on 03-23-2023 Protein [Mass/Vol] 7.0 g/dL 6.4-8.9 [facility] RBC Auto (Bld) [#/Vol]Ordere d By: Pete Thakkar on 03-23-2023 RBC (Bld) [#/Vol] 4.12 10*6/uL 3.60-5.00 [facility] Serum or plasma albumin/glob ulin mass ratioOrdered By: Pete Thakkar on 03-23-2023 Albumin/Globulin [Mass ratio] 1.4 {ratio} [facility] Serum or plasma anion gap de terminationOrdered By: Pete Thakkar on 03-23-2023 Anion gap [Moles/Vol] 10.1 mmol/L 6.0-15.0 [facility] Serum or plasma non-glucuron idated bilirubin measurement (mass/volume)Ordered By: Pete Thakkar on 03-23-2023 Bilirubin.indirect [Mass/Vol] 0.2 mg/dL [facility] Sodium [Moles/volume] in Ser um or PlasmaOrdered By: Pete Thakkar on 03-23-2023 Sodium [Moles/Vol] 142 mmol/L 136-145 [facility] Specific gravity Auto test s trip (U) [Rel density]Ordered By: Pete Thakkar on 03-23-2023 Specific gravity (U) [Rel density] 1.048 1.001-1.030 [facility] Squamous epithelial cells de tection in urine sediment by light microscopyOrdered By: Pete Thakkar on 03-23-2023 Epithelial cells.squamous LM Ql (Urine sed) None seen [HPF] 0-2 [facility] Troponin I.cardiac [Mass/vol ume] in Serum or Plasma by Detection limit <= 0.01 ng/Ordered By: Pete Thakkar on 03-23-2023 Troponin I.cardiac DL <= 0.01 ng/mL [Mass/Vol] 12.2 pg/mL 0.0-15.0 [facility] Urea nitrogen [Mass/volume] in Serum or PlasmaOrdered By: Pete Thakkar on 03-23-2023 Urea nitrogen [Mass/Vol] 24 mg/dL 7-25 [facility] Urine bacteria detection by automated methodOrdered By: Pete Thakkar on 03-23-2023 Bacteria Auto Ql (U) 1+ None Seen [facility] Urine clarity by refractomet ry automatedOrdered By: Pete Thakkar on 03-23-2023 Clarity Refractometry automated (U) Clear Clear [facility] Urine glucose measurement by automated test strip (mass/volume)Ordered By: Pete Thakkar on 03-23-2023 Glucose Auto test strip (U) [Mass/Vol] Normal mg/dL Normal [facility] Urine hemoglobin detection b y automated test stripOrdered By: Pete Thakkar on 03-23-2023 Hemoglobin Auto test strip Ql (U) Trace Negative [facility] Urine leukocyte esterase det ection by automated test stripOrdered By: Pete Thakkar on 03-23-2023 Leukocyte esterase Auto test strip Ql (U) Negative Negative [facility] Urobilinogen Auto test strip (U) [Mass/Vol]Ordered By: Pete Thakkar on 03-23-2023 Urobilinogen (U) [Mass/Vol] Normal mg/dL Normal [facility] WBC Auto (Bld) [#/Vol]Ordere d By: Pete Thakkar on 03-23-2023 WBC (Bld) [#/Vol] 6.3 10*3/uL 3.8-11.6 [facility] pH Auto test strip (U)Ordere d By: Pete Thakkar on 03-23-2023 pH (U) 5.0 [pH] 5.0-9.0 [facility] Activated partial thrombopla stin time (aPTT) in platelet poor plasma by coagulation aOrdered By: Conner Griffith on 02-15-2023 aPTT Coag (PPP) [Time] 37.0 s 25.1-36.5 [facility] Alanine aminotransferase [En zymatic activity/volume] in Serum or PlasmaOrdered By: Conner Griffith on 02-15-2023 ALT [Catalytic activity/Vol] 13 U/L 7-52 [facility] Albumin [Mass/volume] in Ser um or Plasma by Bromocresol green (BCG) dye binding methoOrdered By: Conner Griffith on 02-15-2023 Albumin BCG dye [Mass/Vol] 4.3 g/dL 3.5-5.7 [facility] Alkaline phosphatase [Enzyma tic activity/volume] in Serum or PlasmaOrdered By: Conner Griffith on 02-15-2023 ALP [Catalytic activity/Vol] 124 U/L 34-104 [facility] Aspartate aminotransferase [ Enzymatic activity/volume] in Serum or PlasmaOrdered By: Conner Griffith on 02-15-2023 AST [Catalytic activity/Vol] 15 U/L 13-39 [facility] Basophils Auto (Bld) [#/Vol] Ordered By: Conner Griffith on 02-15-2023 Basophils (Bld) [#/Vol] 0.0 10*3/uL 0.0-0.2 [facility] Basophils/100 WBC Auto (Bld) Ordered By: Conner Griffith on 02-15-2023 Basophils/100 WBC (Bld) 0.6 % . [facility] Bilirubin.direct [Mass/volum e] in Serum or PlasmaOrdered By: Conner Griffith on 02-15-2023 Bilirubin.direct [Mass/Vol] 0.00 mg/dL 0.03-0.18 [facility] Comment on above: If the DBIL is less than 0.1, IBIL is not able to becalculated. Bilirubin.total [Mass/volume ] in Serum or PlasmaOrdered By: Conner Griffith on 02-15-2023 Bilirubin [Mass/Vol] 0.4 mg/dL 0.3-1.0 [facility] Calcium [Mass/volume] in Ser um or PlasmaOrdered By: Conner Griffith on 02-15-2023 Calcium [Mass/Vol] 9.3 mg/dL 8.6-10.3 [facility] Carbon dioxide, total [Moles /volume] in Serum or PlasmaOrdered By: Conner Griffith on 02-15-2023 CO2 [Moles/Vol] 25.3 mmol/L 21.0-31.0 [facility] Chloride [Moles/volume] in S cristine or PlasmaOrdered By: Conner Griffith on 02-15-2023 Chloride [Moles/Vol] 106 mmol/L 98-107 [facility] Creatinine [Mass/volume] in Serum or PlasmaOrdered By: Conner Griffith on 02-15-2023 Creatinine [Mass/Vol] 0.77 mg/dL 0.60-1.20 [facility] Eosinophils Auto (Bld) [#/Vo l]Ordered By: Conner Griffith on 02-15-2023 Eosinophils (Bld) [#/Vol] 0.2 10*3/uL 0.0-0.45 [facility] Eosinophils/100 WBC Auto (Bl d)Ordered By: Conner Griffith on 02-15-2023 Eosinophils/100 WBC (Bld) 4.0 % . [facility] Erythrocyte distribution wid th Auto (RBC) [Ratio]Ordered By: Conenr Griffith on 02-15-2023 Erythrocyte distribution width (RBC) [Ratio] 13.5 % 11.9-15.3 [facility] Globulin Calc (S) [Mass/Vol] Ordered By: Conner Griffith on 02-15-2023 Globulin (S) [Mass/Vol] 3.0 g/dL [facility] Glucose [Mass/volume] in Ser um [...] [Volume fraction] 38.4 % 34.0-46.4 [facility] Hemoglobin [Mass/volume] in BloodOrdered By: Conner Griffith on 02-15-2023 Hemoglobin (Bld) [Mass/Vol] 13.0 g/dL 11.8-15.4 [facility] Laboratory - CoagulationOrde red By: Conner Griffith on 02-15-2023 PT Coag (PPP) [Time] 11.7 s 9.0-12.9 [facility] Leukocytes [#/volume] correc jun for nucleated erythrocytes in Blood by Automated counOrdered By: Conner Griffith on 02-15-2023 WBC corrected for nucl RBC Auto (Bld) [#/Vol] 5.2 10*3/uL 3.8-11.6 [facility] Lipase [Enzymatic activity/v olume] in Serum or PlasmaOrdered By: Conner Griffith on 02-15-2023 Lipase [Catalytic activity/Vol] 19.0 U/L 11.0-82.0 [facility] Lymphocytes Auto (Bld) [#/Vo l]Ordered By: Conner Griffith on 02-15-2023 Lymphocytes (Bld) [#/Vol] 1.8 10*3/uL 1.00-4.8 [facility] Lymphocytes/100 WBC Auto (Bl d)Ordered By: Conner Griffith on 02-15-2023 Lymphocytes/100 WBC (Bld) 33.8 % . [facility] MCH Auto (RBC) [Entitic mass ]Ordered By: Conner Griffith on 02-15-2023 MCH (RBC) [Entitic mass] 29.4 pg 24.7-34.3 [facility] MCHC Auto (RBC) [Mass/Vol]Or dered By: Conner Griffith on 02-15-2023 MCHC (RBC) [Mass/Vol] 33.8 g/dL 32.0-35.0 [facility] MCV Auto (RBC) [Entitic vol] Ordered By: Conner Griffith on 02-15-2023 MCV (RBC) [Entitic vol] 86.8 fL 80-100 [facility] Monocyte distribution width [Entitic volume] in Blood by AutomatedOrdered By: Conner Griffith on 02-15-2023 Monocyte distribution width Auto (Bld) [Entitic vol] 18.21 % 0.00-20.00 [facility] Monocytes Auto (Bld) [#/Vol] Ordered By: Conner Griffith on 02-15-2023 Monocytes (Bld) [#/Vol] 0.3 10*3/uL 0.0-0.8 [facility] Monocytes/100 WBC Auto (Bld) Ordered By: Conner Griffith on 02-15-2023 Monocytes/100 WBC (Bld) 4.8 % . [facility] Neutrophils Auto (Bld) [#/Vo l]Ordered By: Conner Griffith on 02-15-2023 Neutrophils (Bld) [#/Vol] 3.0 10*3/uL 1.8-7.7 [facility] Neutrophils/100 WBC Auto (Bl d)Ordered By: Conner Griffith on 02-15-2023 Neutrophils/100 WBC (Bld) 56.8 % . [facility] No Panel InformationOrdered By: Conner Griffith on 02-15-2023 Estimated GFR (CKD-EPI) > 60.0 mL/Min [facility] Creatinine Clearance (Chem 98.01 [facility] Nucleated erythrocytes [Pres ence] in Blood by Automated countOrdered By: Conner Griffith on 02-15-2023 Nucleated RBC Auto Ql (Bld) 0.2 /100{WBC} 0-0.5 [facility] Platelet mean volume Auto (B ld) [Entitic vol]Ordered By: Conner Griffith on 02-15-2023 Platelet mean volume (Bld) [Entitic vol] 7.3 fL 6.3-10.7 [facility] Platelet poor plasma interna tional normalized ratio (INR) by coagulation assay (relatOrdered By: Conner Griffith on 02-15-2023 INR Coag (PPP) [Relative time] 1.0 {INR} [facility] Comment on above: INR [...] (Bld) [#/Vol] 385 10*3/uL 150-450 [facility] Potassium [Moles/volume] in Serum or PlasmaOrdered By: Conner Griffith on 02-15-2023 Potassium [Moles/Vol] 3.9 mmol/L 3.5-5.1 [facility] Protein [Mass/volume] in Ser um or PlasmaOrdered By: Conner Griffith on 02-15-2023 Protein [Mass/Vol] 7.3 g/dL 6.4-8.9 [facility] RBC Auto (Bld) [#/Vol]Ordere d By: Conner Griffith on 02-15-2023 RBC (Bld) [#/Vol] 4.43 10*6/uL 3.60-5.00 [facility] Serum or plasma albumin/glob ulin mass ratioOrdered By: Conner Griffith on 02-15-2023 Albumin/Globulin [Mass ratio] 1.4 {ratio} [facility] Serum or plasma anion gap de terminationOrdered By: Conner Griffith on 02-15-2023 Anion gap [Moles/Vol] 12.6 mmol/L 6.0-15.0 [facility] Serum or plasma non-glucuron idated bilirubin measurement (mass/volume)Ordered By: Conner Griffith on 02-15-2023 Bilirubin.indirect [Mass/Vol] 0.4 mg/dL [facility] Sodium [Moles/volume] in Ser um or PlasmaOrdered By: Conner Griffith on 02-15-2023 Sodium [Moles/Vol] 140 mmol/L 136-145 [facility] Urea nitrogen [Mass/volume] in Serum or PlasmaOrdered By: Conner Griffith on 02-15-2023 Urea nitrogen [Mass/Vol] 14 mg/dL 7-25 [facility] WBC Auto (Bld) [#/Vol]Ordere d By: Conner Griffith on 02-15-2023 WBC (Bld) [#/Vol] 5.2 10*3/uL 3.8-11.6 [facility] MG MAMM SCREEN 3D MACARIO CADon 11-30-2022 MG MAMM SCREEN 3D MACARIO CAD Normal [facility] ER URINE PROFILEon 3 Bilirubin Ql (U) Negative Normal NEGATIVE [facility] Comment on above: Performed By: #### E RUR ####[facility] [address] [place], [place] [address]Dr. Tadeo Smyth Clarity (U) CLEAR Normal CLEAR [facility] Comment on above: Performed By: #### E RUR ####[facility] [address] [place], [place] [address]Dr. Tadeo Smyth Color (U) YELLOW Normal YELLOW [facility] Comment on above: Performed By: #### E RUR ####[facility] [address] [place], [place] [address]Dr. Tadeo Smyth ERUAHD A micrscopic examina tion will be performed if indicated. Normal [facility] Comment on above: Performed By: #### E RUR ####[facility] [address] [place], [place] [address]Dr. Tadeo Smyth Glucose Ql (U) Negative Normal NEGATIVE [facility] Comment on above: Performed By: #### E RUR ####[facility] [address] [place], [place] [address]Dr. Tadeo Smtyh Hemoglobin Ql (U) TRACE-INTACT Abnormal NEGATIVE [facility] Comment on above: Performed By: #### E RUR ####[facility] [address] [place], [place] [address]Dr. Tadeo Smyth Ketones Ql (U) Negative Normal NEGATIVE [facility] Comment on above: Performed By: #### E RUR ####[facility] [address] [place], [place] [address]Dr. Tadeo Smyth LEUKOCYTES Negative Normal NEGATIVE [facility] Comment on above: Performed By: #### E RUR ####[facility] [address] [place], [place] [address]Dr. Tadeo Smyth Nitrite Ql (U) Negative Normal NEGATIVE [facility] Comment on above: Performed By: #### E RUR ####[facility] [address] [place] [address]Dr. Tadeo Smyth pH (U) 6.0 [pH] Normal 5-9 [facility] Comment on above: Performed By: #### E RUR ####[facility] [address] [place], [place] [address]Dr. Tadeo Smyth SPEC GRAVITY >=1.030 Abnormal 1.005-<=1.[address] [place] [address] Comment on above: Performed By: #### E RUR ####[facility] [address] [place], [place] [address]Dr. Tadeo Smyth UA PROTEIN Negative Normal NEGATIVE/ TRACE [facility] Comment on above: Performed By: #### E RUR ####[facility] [address] [place], [place] [address]Dr. Margotnicole Smyth UR MICRO IND NOT INDICATED Normal [facility] Comment on above: Performed By: #### E RUR ####[facility] [address] [place], [place] [address]Dr. Tadeo Smyth Urobilinogen Qn (U) 0.2 {Benito'U}/dL Normal 0.2 - 1. 0 [facility] Comment on above: Performed By: #### E RUR ####[facility] [address] [place], [place] [address]Dr. Tadeo Smyth XR ABD FLAT UP_PA Kasey 11-28 XR ABD FLAT UP_PA CH Normal [facility] AMYLASEon 11-27-2022 Amylase [Catalytic activity/Vol] 63 U/L Normal 25-115 [facility] Comment on above: Performed By: #### L IPA, VIJI, CMP ####[facility] [address] [place], [place] [address]Dr. Tadeo Smyth CBC AUTO DIFFon 11-27-2022 BASO # 0.0 103/ul Normal 0.0-0.1 [facility] Comment on above: Performed By: #### C BC ####[facility] [address] [place] [id number]. Tadeo Smyth Basophils/100 WBC (Bld) 0.4 % Normal 0.2-2.0 [facility] Comment on above: Performed By: #### C BC ####[facility] [address] [place] [id number]. Tadeo Smyth EO # 0.2 103/ul Normal 0.0-0.7 [facility] Comment on above: Performed By: #### C BC ####[facility] [address] [place], [place] [id number]. Tadeo Smyth Eosinophils/100 WBC (Bld) 2.8 % Normal 0.9-7.0 [facility] Comment on above: Performed By: #### C BC ####[facility] [address] [place], [place] [address]Dr. Tadeo Smyth Erythrocyte distribution width (RBC) [Ratio] 13.2 % Normal 11.0-15.0 [facility] Comment on above: Performed By: #### C BC ####[facility] W[address]af[address] [place], [place] [id number]. Tadeo Smyth Hematocrit (Bld) [Volume fraction] 42.6 % Normal 36.0-48.0 [facility] Comment on above: Performed By: #### C BC ####[facility] Biy[address] [place], [place] [id number]. Tadeo Smyth Hemoglobin (Bld) [Mass/Vol] 13.6 g/dL Normal 12.0-16.0 [facility] Comment on above: Performed By: #### C BC ####[facility] F[address]rrvkcqtf[address] [place] [id number]. Tadeo Smyth IG # 0.02 10e3/ul Normal 0.00-0.03 [facility] Comment on above: Performed By: #### C BC ####[facility] Sibomoitfm[address] [place], [place] [address]Dr. Tadeo Smyth IG % 0.3 % Normal 0.0-0.5 [facility] Comment on above: Performed By: #### C BC ####[facility] Ymfjspyxgm[address] [place], [place] [address]Yi. Tadeo Smyth LYMPH # 2.2 103/ul Normal 1.2-3.8 [facility] Comment on above: Performed By: #### C BC ####[facility] Pebxcc[address]qs2293 [place], [place] [address]Ma. Tadeo Smyth Lymphocytes/100 WBC (Bld) 32.1 % Normal 20.5-60.0 [facility] Comment on above: Performed By: #### C BC ####[facility] Nuttjudnea39[address] [place] [id number]. Tadeo Haja MANUAL DIFF REQ NO Normal [facility] Comment on above: Performed By: #### C BC ####[facility] Ixufoupwut8058 [place] [phone]. Tadeo Smyth MCH (RBC) [Entitic mass] 29.6 pg Normal 26.7-34.0 [facility] Comment on above: Performed By: #### C BC ####[facility] Gheelygbfs3688 [place] [phone]. Tadeo Smyth MCHC (RBC) [Mass/Vol] 31.9 g/dL Normal 29.9-35.2 [facility] Comment on above: Performed By: #### C BC ####[facility] Zvxfsamjty9251 [place] [phone]. Tadeo Smyth MCV (RBC) [Entitic vol] 92.6 fL Normal 81.0-99.0 [facility] Comment on above: Performed By: #### C BC ####[facility] Ewgzulqwsy7513 [place] [phone]. Tadeo Smyth MONO # 0.2 103/ul Critically low 0.3-0.8 The [facility] Comment on above: Performed By: #### C BC ####[facility] Fwalsnlnnl8878 [place] [phone]. Tadeo Smyth Monocytes/100 WBC (Bld) 3.2 % Normal 1.7-12.0 [facility] Comment on above: Performed By: #### C BC ####[facility] Gsqzwzspth1890 [place] [phone]. Tadeo Smyth NEUT # 4.2 103/ul Normal 1.4-6.5 [facility] Comment on above: Performed By: #### C BC ####[facility] Hoxyqfdpkb6513 [place] [phone]. Tadeo Smyth Neutrophils/100 WBC (Bld) 61.2 % Normal 43.0-75.0 [facility] Comment on above: Performed By: #### C BC ####[facility] Dvixpdusgn7325 [place] [phone]. Tadeo Smyth Platelet mean volume (Bld) [Entitic vol] 9.0 fL Critically low 9.5-13.5 [facility] Comment on above: Performed By: #### C BC ####[facility] Jjmqgksdew1585 [place] [phone]. Tadeo Smyth PLT 392 103/ul Normal 150-450 [facility] Comment on above: Performed By: #### C BC ####[facility] Hukzaxuxhz3725 [place] [phone]. Tadeo Smyth RBC 4.60 106/ul Normal 4.20-5.40 [facility] Comment on above: Performed By: #### C BC ####[facility] Mtqwojizrp4688 [place] [phone]. Tadeo Smyth WBC 6.9 103/ul Normal 4.0-11.0 [facility] Comment on above: Performed By: #### C BC ####[facility] Axrmuiafmo35[address] [place] [address]Dr. Tadeo Smyth LIPASEon 11-27-2022 Lipase [Catalytic activity/Vol] 100.0 U/L Normal 73.0-393.0 [facility] Comment on above: Performed By: #### L VIJI HALL, CMP ####[facility] Sshcfjyeal45[address] [place] [address]Dr. Margotnicole Smyth PROF 14(COMP METB)on 023 Albumin [Mass/Vol] 3.5 g/dL Normal 3.4-5.0 [facility] Comment on above: Performed By: #### L IPA VIJI, CMP ####[facility] Gurjhexjjv9[address] [place] [address]Dr. Tadeo Smyth Albumin/Globulin [Mass ratio] 0.9 {ratio} Normal [facility] Comment on above: Performed By: #### L IPA VIJI, CMP ####[facility] Adpngzwlyv7297 [place] [address]Dr. Tadeo Smyth ALP [Catalytic activity/Vol] 166 U/L Critically high 46-116 [facility] Comment on above: Performed By: #### L IPA VIJI, CMP ####[facility] Ndpvwnscmr[address] [place], [place] [address]Dr. Tadeo Smyth ALT [Catalytic activity/Vol] 25 U/L Normal 14-59 [facility] Comment on above: Performed By: #### L IPA VIJI, CMP ####[facility] Gzpfxijpfr[address] [place], [place] [address]Dr. Tadeo Smyth Anion gap [Moles/Vol] 12.4 mmol/L Normal [facility] Comment on above: Performed By: #### L IPA VIJI, CMP ####[facility] Vjiamnehvl[address] [place], [place] [address]Dr. Tadeo Smyth AST [Catalytic activity/Vol] 18 U/L Normal 15-37 [facility] Comment on above: Performed By: #### L IPA VIJI, CMP ####[facility] Inhkycknvl92[address] [place], [place] [address]Dr. Tadeo Smyth Bilirubin [Mass/Vol] 0.3 mg/dL Normal 0.2-1.0 [facility] Comment on above: Performed By: #### L IPA VIJI, CMP ####[facility] Sbzgdxlmck13[address] [place], [place] [address]Dr. Tadeo Smyth Calcium [Mass/Vol] 9.1 mg/dL Normal 8.5-10.1 [facility] Comment on above: Performed By: #### L IPA VIJI, CMP ####[facility] Rpewqyqgoq[address] [place], [place] [address]Dr. Tadeo Smyth Chloride [Moles/Vol] 104 mmol/L Normal 98-107 [facility] Comment on above: Performed By: #### L VIJI HALL, CMP ####[facility] Abzloparhh1828 [place] [address]Dr. Tadeo Smyth CO2 [Moles/Vol] 25.0 mmol/L Normal 21.0-32.0 [facility] Comment on above: Performed By: #### L VIJI HALL, CMP ####[facility] Lgdnldtsmf9220 [place] [address]Dr. Tadeo Smyth Creatinine [Mass/Vol] 0.87 mg/dL Normal 0.55-1.02 [facility] Comment on above: Performed By: #### L VIJI HALL, CMP ####[facility] Cznjvkjmnv[address] [place], [place] [address]Dr. Tadeo Smyth EGFR-AF [place] >60 Normal >=60 [facility] Comment on above: Performed By: #### L VIJI HALL, CMP ####[facility] K[address]jpmcb[address] [place] [address]Dr. Tadeo Smyth EGFR-NON AF [place] >60 Normal >=60 [facility] Comment on above: Performed By: #### L VIJI HALL, CMP ####[facility] Fvzvwfllqa[address] [place], [place] [address]Dr. Tadeo Smyth Globulin (S) [Mass/Vol] 3.9 g/dL Normal [facility] Comment on above: Performed By: #### L VIJI HALL, CMP ####[facility] Qtbvqdxqhv3375 [place] [address]Dr. Tadeo Smyth Glucose [Mass/Vol] 169 mg/dL Critically high 74-106 [facility] Comment on above: Performed By: #### L VIJI HALL, CMP ####[facility] Esuiuhuanr07[address] [place] [address]Dr. Tadeo Smyth Potassium [Moles/Vol] 3.4 mmol/L Critically low 3.5-5.1 [facility] Comment on above: Performed By: #### L VIJI HALL, CMP ####[facility] Uorrjcoedf25[address] [place] [address]Dr. Margotnicole Smyth Protein [Mass/Vol] 7.4 g/dL Normal 6.4-8.2 [facility] Comment on above: Performed By: #### L IPA, VIJI, CMP ####[facility] Aksocbharq4905 [place] [address]Dr. Margotnicole Smyth Sodium [Moles/Vol] 138 mmol/L Normal 136-145 [facility] Comment on above: Performed By: #### L IPA, VIJI, CMP ####[facility] Lsovfesgwa[address] [place], [place] [address]Dr. Margotnicole Smyth Urea nitrogen [Mass/Vol] 23.0 mg/dL Critically high 7.0-18.0 [facility] Comment on above: Performed By: #### L IPA VIJI, CMP ####[facility] Zdgjdzxtdt[address] [place], [place] [address]Dr. Tadeo Smyth Urea nitrogen/Creatinine [Mass ratio] 26.4 mg/mg Normal [facility] Comment on above: Performed By: #### L IPA, VIJI, CMP ####[facility] Swtpfktghx[address] [place], [place] [address]Dr. Tadeo Haja AMYLASEon 11-02-2022 Amylase [Catalytic activity/Vol] 40 U/L Normal 25-115 [facility] Comment on above: Performed By: #### L IPA, MG, CMP, VIJI ####[facility] Whmqleqzfs[address] [place], [place] [address]Dr. Tadeo Haja CBC AUTO DIFFon 11-02-2022 BASO # 0.0 103/ul Normal 0.0-0.1 [facility] Comment on above: Performed By: #### C BC ####[facility] Rubokmvdsh[address] [place], [place] [address]Dr. Margotnicole Smyth Basophils/100 WBC (Bld) 0.5 % Normal 0.2-2.0 [facility] Comment on above: Performed By: #### C BC ####[facility] Bkhwcbnqro[address] [place], [place] [address]Dr. Tadeo Smyth EO # 0.1 103/ul Normal 0.0-0.7 [facility] Comment on above: Performed By: #### C BC ####[facility] Sszbuqajdc4179 [place] [address]Dr. Tadeo Smyth Eosinophils/100 WBC (Bld) 2.8 % Normal 0.9-7.0 [facility] Comment on above: Performed By: #### C BC ####[facility] Cdgkrdpthi[address] [place], [place] [address]Dr. Tadeo Smyth Erythrocyte distribution width (RBC) [Ratio] 13.3 % Normal 11.0-15.0 [facility] Comment on above: Performed By: #### C BC ####[facility] Jgnjtomxwc[address] [place], [place] [address]Dr. Tadeo Smyth Hematocrit (Bld) [Volume fraction] 35.6 % Critically low 36.0-48.0 [facility] Comment on above: Performed By: #### C BC ####[facility] Jllzazgcad[address] [place], [place] [address]Dr. Tadeo Smyth Hemoglobin (Bld) [Mass/Vol] 11.3 g/dL Critically low 12.0-16.0 [facility] Comment on above: Performed By: #### C BC ####[facility] Ywvxyiwrbj[address] [place], [place] [address]Dr. Tadeo Smyth IG # 0.01 10e3/ul Normal 0.00-0.03 [facility] Comment on above: Performed By: #### C BC ####[facility] Yhkwehbqsh[address] [place], [place] [address]Dr. Tadeo Smyth IG % 0.2 % Normal 0.0-0.5 [facility] Comment on above: Performed By: #### C BC ####[facility] Dwdtqggwvn46[address] [place], [place] [address]Dr. Tadeo Smyth LYMPH # 1.5 103/ul Normal 1.2-3.8 [facility] Comment on above: Performed By: #### C BC ####[facility] Uxwxdgxbfe[address] [place], [place] [address]Dr. Tadeo Smyth Lymphocytes/100 WBC (Bld) 34.9 % Normal 20.5-60.0 [facility] Comment on above: Performed By: #### C BC ####[facility] Lijyuarsry4917 [place] [address]Dr. Tadeo Smyth MANUAL DIFF REQ NO Normal [facility] Comment on above: Performed By: #### C BC ####[facility] Ejzpmidqrz2280 [place] [phone]. Tadeo Smyth MCH (RBC) [Entitic mass] 28.8 pg Normal 26.7-34.0 [facility] Comment on above: Performed By: #### C BC ####[facility] Otukusphja8715 [place] [address]Dr. Tadeo Smyth MCHC (RBC) [Mass/Vol] 31.7 g/dL Normal 29.9-35.2 [facility] Comment on above: Performed By: #### C BC ####[facility] Ctzrdkonpb[address] [place], [place] [address]Dr. Tadeo Smyth MCV (RBC) [Entitic vol] 90.8 fL Normal 81.0-99.0 [facility] Comment on above: Performed By: #### C BC ####[facility] Oyndysfbwj[address] [place], [place] [address]Dr. Tadeo Smyth MONO # 0.3 103/ul Normal 0.3-0.8 [facility] Comment on above: Performed By: #### C BC ####[facility] Ybjsfkpyns[address] [place], [place] [address]Dr. Tadeo Smyth Monocytes/100 WBC (Bld) 6.9 % Normal 1.7-12.0 [facility] Comment on above: Performed By: #### C BC ####[facility] Tvpdqltqef[address] [place], [place] [address]DrNeo Smyth NEUT # 2.4 103/ul Normal 1.4-6.5 [facility] Comment on above: Performed By: #### C BC ####[facility] Bxyhloajsa[address] [place], [place] [address]Dr. Tadeo Smyth Neutrophils/100 WBC (Bld) 54.7 % Normal 43.0-75.0 [facility] Comment on above: Performed By: #### C BC ####[facility] Dopfwzxrlv2080 [place] [address]Dr. Tadeo Smyth Platelet mean volume (Bld) [Entitic vol] 8.9 fL Critically low 9.5-13.5 [facility] Comment on above: Performed By: #### C BC ####[facility] Kvmxynwmvl40[address] [place] [address]Dr. Tadeo Smyth PLT 316 103/ul Normal 150-450 [facility] Comment on above: Performed By: #### C BC ####[facility] Xhsiiidpty9531 [place] [address]Dr. Tadeo Smyth RBC 3.92 106/ul Critically low 4.20-5.40 [facility] Comment on above: Performed By: #### C BC ####[facility] Nhsweashrv[address] [place], [place] [address]Dr. Tadeo Smyth WBC 4.4 103/ul Normal 4.0-11.0 [facility] Comment on above: Performed By: #### C BC ####[facility] Rhevnqmxgw[address] [place], [place] [address]Dr. Tadeo Smyth H PYLORI ANTIBODY IGGon 10-07 H. PYLORI IGG ABS 0.12 Index Value Normal 0.00-0.79 [facility] Comment on above: Result Comment: Nega tive <0.80 Equivocal 0.80 - 0.89 Positive >0.89 Performed By: #### H PYLLC ####[facility] Flpnyfinaf[address] [place], [place] [address]Dr. Tadeo Smyth LIPASEon 11-02-2022 Lipase [Catalytic activity/Vol] 58.0 U/L Critically low 73.0-393.0 [facility] Comment on above: Performed By: #### L IPA, MG, CMP, VIJI ####[facility] Rkvawpfzba9427 [place] [address]Dr. Tadeo Smyth MAGNESIUMon 11-02-2022 Magnesium [Mass/Vol] 1.8 mg/dL Normal 1.8-2.4 [facility] Comment on above: Performed By: #### L IPA, MG, CMP, VIJI ####[facility] Rdumgaatiq6522 [place] [address]Dr. Tadeo Smyth PROF 14(COMP METB)on 023 Albumin [Mass/Vol] 3.2 g/dL Critically low 3.4-5.0 [facility] Comment on above: Performed By: #### L IPA, MG, CMP, VIJI ####[facility] Ixycxujkvx3642 [place] [address]Dr. Tadeo Smyth Albumin/Globulin [Mass ratio] 1.0 {ratio} Normal [facility] Comment on above: Performed By: #### L IPA, MG, CMP, VIJI ####[facility] Rahrgogeza50[address] [place], [place] [address]Dr. Tadeo Smyth ALP [Catalytic activity/Vol] 138 U/L Critically high 46-116 [facility] Comment on above: Performed By: #### L IPA, MG, CMP, VIJI ####[facility] Jkgjqmozhk25[address] [place], [place] [address]Dr. Tadeo Smyth ALT [Catalytic activity/Vol] 22 U/L Normal 14-59 [facility] Comment on above: Performed By: #### L IPA, MG, CMP, VIJI ####[facility] Qbjbgdyiiq2251 [place] [address]Dr. Tadeo Smyth Anion gap [Moles/Vol] 10.0 mmol/L Normal [facility] Comment on above: Performed By: #### L IPA, MG, CMP, VIJI ####[facility] Gsegqtjyey[address] [place], [place] [address]Dr. Tadeo Smyth AST [Catalytic activity/Vol] 18 U/L Normal 15-37 [facility] Comment on above: Performed By: #### L IPA, MG, CMP, VIJI ####[facility] Zgmxnpxzgk4437 [place] [address]Dr. Tadeo Smyth Bilirubin [Mass/Vol] 0.5 mg/dL Normal 0.2-1.0 [facility] Comment on above: Performed By: #### L IPA, MG, CMP, VIJI ####[facility] Ptycdbczgq0560 [place] [address]Dr. Tadeo Smyth Calcium [Mass/Vol] 8.9 mg/dL Normal 8.5-10.1 [facility] Comment on above: Performed By: #### L IPA, MG, CMP, VIJI ####[facility] Cameatxzdc1594 [place] [address]Dr. Tadeo Smyth Chloride [Moles/Vol] 107 mmol/L Normal 98-107 [facility] Comment on above: Performed By: #### L IPA, MG, CMP, VIJI ####[facility] Dwjjyahsuh[address] [place], [place] [address]Dr. Tadeo Smyth CO2 [Moles/Vol] 28.8 mmol/L Normal 21.0-32.[address] [facility] Comment on above: Performed By: #### L IPA, MG, CMP, VIJI ####[facility] Xbaxkvjfrk418[address] [place], [place] [address]Dr. Tadeo Smyth Creatinine [Mass/Vol] 0.74 mg/dL Normal 0.55-1.02 [facility] Comment on above: Performed By: #### L IPA, MG, CMP, VIJI ####[facility] Dkepvjyike39[address] [place], [place] [address]Dr. Tadeo Smyth EGFR-AF [place] >60 Normal >=[address] [facility] Comment on above: Performed By: #### L IPA, MG, CMP, VIJI ####[facility] Qmkmh[address]efk[address] [place], [place] [address]Dr. Tadeo Smyth EGFR-NON AF [place] >60 Normal >=60 [facility] Comment on above: Performed By: #### L IPA, MG, CMP, VIJI ####[facility] Tbhyrebjme[address] [place], [place] [address]Dr. Tadeo Smyth Globulin (S) [Mass/Vol] 3.3 g/dL Normal [facility] Comment on above: Performed By: #### L IPA, MG, CMP, VIJI ####[facility] Rfajdgotjp[address] [place], [place] [address]Dr. Tadeo Smyth Glucose [Mass/Vol] 96 mg/dL Normal 74-106 [facility] Comment on above: Performed By: #### L IPA, MG, CMP, VIJI ####[facility] Exserbjcaa[address] [place] [address]Dr. Tadeo Smyth Potassium [Moles/Vol] 3.8 mmol/L Normal 3.5-5.1 [facility] Comment on above: Performed By: #### L IPA, MG, CMP, VIJI ####[facility] D[address]wjwmqzk[address] [place], [place] [address]Dr. Tadeo Smyth Protein [Mass/Vol] 6.5 g/dL Normal 6.4-8.2 [facility] Comment on above: Performed By: #### L IPA, MG, CMP, VIJI ####[facility] Hzmuflnvgz[address] [place], [place] [address]Dr. Tadeo Smyth Sodium [Moles/Vol] 142 mmol/L Normal 136-145 [facility] Comment on above: Performed By: #### L IPA, MG, CMP, VIJI ####[facility] Hexeyzvlxc[address] [place], [place] [address]Dr. Tadeo Smyth Urea nitrogen [Mass/Vol] 8.0 mg/dL Normal 7.0-18.0 [facility] Comment on above: Performed By: #### L IPA, MG, CMP, VIJI ####[facility] Prxghbdbvi64[address] [place], [place] [address]Dr. Tadeo Smyth Urea nitrogen/Creatinine [Mass ratio] 10.8 mg/mg Normal [facility] Comment on above: Performed By: #### L IPA, MG, CMP, VIJI ####[facility] Dhfzeevgtz[address] [place], [place] [address]Dr. Tadeo Smyth AMMONIAon 11-01-2022 Ammonia (P) [Moles/Vol] 18 umol/L Normal 11-32 [facility] Comment on above: Performed By: #### A MM ####[facility] Afyfhfzczy[address] [place], [place] [address]Dr. Tadeo Smyth AMYLASEon 11-01-2022 Amylase [Catalytic activity/Vol] 43 U/L Normal 25-115 [facility] Comment on above: Performed By: #### M Ayan, VIJI, KEITH, CMP ####[facility] Z[address]zcaqzs[address] [place] [address]Dr. Tadeo Smyth CBC AUTO DIFFon 11-01-2022 BASO # 0.0 103/ul Normal 0.0-0.1 [facility] Comment on above: Performed By: #### C BC ####[facility] Hqaathxndz[address] [place], [place] [address]Dr. Tadeo Smyth Basophils/100 WBC (Bld) 0.6 % Normal 0.2-2.0 [facility] Comment on above: Performed By: #### C BC ####[facility] Wgebowncdz[address] [place], [place] [address]Dr. Tadeo Smyth EO # 0.1 103/ul Normal 0.0-0.7 [facility] Comment on above: Performed By: #### C BC ####[facility] Vpvrygqpqs[address] [place], [place] [address]Dr. Tadeo Smyth Eosinophils/100 WBC (Bld) 1.5 % Normal 0.9-7.0 [facility] Comment on above: Performed By: #### C BC ####[facility] Idxvkqxtzo[address] [place], [place] [address]Dr. Tadeo Smyth Erythrocyte distribution width (RBC) [Ratio] 13.5 % Normal 11.0-15.0 [facility] Comment on above: Performed By: #### C BC ####[facility] Nwrdbqovli[address] [place], [place] [address]Dr. Tadeo Smyth Hematocrit (Bld) [Volume fraction] 37.7 % Normal 36.0-48.0 [facility] Comment on above: Performed By: #### C BC ####[facility] Tzvsbrokja[address] [place], [place] [address]Dr. Tadeo Smyth Hemoglobin (Bld) [Mass/Vol] 12.5 g/dL Normal 12.0-16.0 [facility] Comment on above: Performed By: #### C BC ####[facility] R[address] [place], [place] [address]DrNeo Smyth IG # 0.02 10e3/ul Normal 0.00-0.03 [facility] Comment on above: Performed By: #### C BC ####[facility] [address] [place] [address]DrNeo Smyth IG % 0.4 % Normal 0.0-0.5 [facility] Comment on above: Performed By: #### C BC ####[facility] T[address] [place] [address]DrNeo Smyth LYMPH # 1.3 103/ul Normal 1.2-3.8 [facility] Comment on above: Performed By: #### C BC ####[facility] Ek[address] [place] [address]DrNeo Smyth Lymphocytes/100 WBC (Bld) 23.9 % Normal 20.5-60.0 [facility] Comment on above: Performed By: #### C BC ####[facility] V[address] [place], [place] [address]DrNeo Smyth MANUAL DIFF REQ NO Normal [facility] Comment on above: Performed By: #### C BC ####[facility] [address] [place], [place] [address]DrNeo Smyth MCH (RBC) [Entitic mass] 29.8 pg Normal 26.7-34.0 [facility] Comment on above: Performed By: #### C BC ####[facility] Kq[address]ub[address] [place], [place] [address]DrNeo Smyth MCHC (RBC) [Mass/Vol] 33.2 g/dL Normal 29.9-35.2 The [facility] Comment on above: Performed By: #### C BC ####[facility] [address] [place] [address]DrNeo Smyth MCV (RBC) [Entitic vol] 89.8 fL Normal 81.0-99.0 The [facility] Comment on above: Performed By: #### C BC ####[facility] Qfecvvbn[address] [place], [place] [address]DrNeo Smyth MONO # 0.3 103/ul Normal 0.3-0.8 The [facility] Comment on above: Performed By: #### C BC ####[facility] Kch[address]qk[address] [place] [id number]. Tadeo Smyth Monocytes/100 WBC (Bld) 5.2 % Normal 1.7-12.0 The [facility] Comment on above: Performed By: #### C BC ####[facility] Zpre[address]xou[address] [place] [id number]. Tadeo Smyth NEUT # 3.6 103/ul Normal 1.4-6.5 The [facility] Comment on above: Performed By: #### C BC ####[facility] [address]kto[address]zvbg[address] [place] [address]Dr. Tadeo Smyth Neutrophils/100 WBC (Bld) 68.4 % Normal 43.0-75.0 The [facility] Comment on above: Performed By: #### C BC ####[facility] [address] [place], [place] [address]Dr. Tadeo Smyth Platelet mean volume (Bld) [Entitic vol] 9.0 fL Critically low 9.5-13.5 The [facility] Comment on above: Performed By: #### C BC ####[facility] T[address] [place], [place] [address]Dr. Tadeo Smyth PLT 356 103/ul Normal 150-450 The [facility] Comment on above: Performed By: #### C BC ####[facility] Xe[address]pro[address] [place], [place] [address]Dr. Tadeo Smyth RBC 4.20 106/ul Normal 4.20-5.40 The [facility] Comment on above: Performed By: #### C BC ####[facility] [address] [place], [place] [address]Dr. Tadeo Smyth WBC 5.2 103/ul Normal 4.0-11.0 The [facility] Comment on above: Performed By: #### C BC ####[facility] Ep[address] [place], [place] [address]Dr. Tadeo Smyth CT ABD/PELV W KYMon 11-01-[address] ABD/PELV W CON Normal [facility] CULTURE BLOODon 11-01-2022 Microscopic examination of blood, culture Culture Observations: NO GROWTH AT 5 DAYS. Isolate 1 BC_BA_NA Normal The [facility] Comment on above: Performed By: #### B LDCX2 ####[facility] [address] [place] [address]Dr. Tadeo Smyth Performed By: #### B LDCX1 ####[facility] [address]evux[address] [place] [address]Dr. Tadeo Smyth CULTURE URINEon 11-01-2022 CULTURE URINE Culture Observations : LIGHT GROWTH OF MIXED GENITAL SINTIA. NO POTENTIAL PATHOGENS SEEN. Normal The [facility] Comment on above: Performed By: #### U RCX ####[facility] [address] [place] [address]Dr. Tadeo Smyth Covid-19 PCR (CVDTB)on 10-07 SARS-CoV-2 (COVID-19) RNA CHEN+probe Ql (Unsp spec) Not detected Normal NOT DETECTED The [facility] Comment on above: Result Comment: When [...] for this test is supported by the [place] of Health and Human Service's declaration that [...] be used). Performed By: #### C VDTBH ####[facility] [address]xcz[address] [place] [address]Dr. Tadeo Smyth LACTATE/LACTIC ACIDon 2022 Lactate [Moles/Vol] 0.7 mmol/L Normal 0.4-1.9 [facility] Comment on above: Performed By: #### L ACT ####[facility] [address]fcx[address] [place] [address]Dr. Tadeo Smyth LIPASEon 11-01-2022 Lipase [Catalytic activity/Vol] 58.0 U/L Critically low 73.0-393.0 [facility] Comment on above: Performed By: #### M VIJI Botello LIPA, CMP ####[facility] [address] [place] [address]Dr. Tadeo Smyth MAGNESIUMon 11-01-2022 Magnesium [Mass/Vol] 2.0 mg/dL Normal 1.8-2.4 [facility] Comment on above: Performed By: #### VIJI White LIPA, CMP ####[facility] [address] [place] [address]Dr. Tadeo Smyth PROF 14(COMP METB)on 023 Albumin [Mass/Vol] 3.6 g/dL Normal 3.4-5.0 [facility] Comment on above: Performed By: #### VIJI White, LIPA, CMP ####[facility] [address] [place] [address]Dr. Tadeo Smyth Albumin/Globulin [Mass ratio] 1.0 {ratio} Normal [facility] Comment on above: Performed By: #### Clementina Botello VIJI, LIPA, CMP ####[facility] P[address]whdu[address] [place] [address]Dr. Tadeo Smyth ALP [Catalytic activity/Vol] 164 U/L Critically high 46-116 The [facility] Comment on above: Performed By: #### M VIJI Botello, LIPA, CMP ####[facility] [address] [place] [address]Dr. Tadeo Smyth ALT [Catalytic activity/Vol] 22 U/L Normal 14-59 [facility] Comment on above: Performed By: #### M VIJI Botello, LIPA, CMP ####[facility] [address] [place] [address]Dr. Tadeo Smyth Anion gap [Moles/Vol] 11.5 mmol/L Normal Th e [facility] Comment on above: Performed By: #### M Ayan, VIJI, LIPA, CMP ####[facility] [address]swr[address] [place] [address]Dr. Tadeo Smyth AST [Catalytic activity/Vol] 17 U/L Normal 15-37 [facility] Comment on above: Performed By: #### M G, VIJI, LIPA, CMP ####[facility] [address] [place] [address]Dr. Tadeo Smyth Bilirubin [Mass/Vol] 0.4 mg/dL Normal 0.2-1.0 [facility] Comment on above: Performed By: #### M G, VIJI, LIPA, CMP ####[facility] Xcyts[address] [place] [address]Dr. Tadeo Smyth Calcium [Mass/Vol] 9.1 mg/dL Normal 8.5-10.1 [facility] Comment on above: Performed By: #### M G, VIJI, LIPA, CMP ####[facility] [address] [place] [address]Dr. Tadeo Smyth Chloride [Moles/Vol] 105 mmol/L Normal 98-107 [facility] Comment on above: Performed By: #### M G, VIJI, LIPA, CMP ####[facility] Mef[address]uhl[address] [place] [address]Dr. Tadeo Smyth CO2 [Moles/Vol] 27.6 mmol/L Normal 21.0-32.[address] [facility] Comment on above: Performed By: #### M G, VIJI, LIPA, CMP ####[facility] Xm[address]ilryax[address] [place] [address]Dr. Tadeo Smyth Creatinine [Mass/Vol] 0.72 mg/dL Normal 0.55-1.02 [facility] Comment on above: Performed By: #### M G, VIJI, LIPA, CMP ####[facility] Fkxeqhdodp[address] [place] [address]Dr. Tadeo Smyth EGFR-AF [place] >60 Normal >=[address] [facility] Comment on above: Performed By: #### M G, VIJI, LIPA, CMP ####[facility] Djgzunztus[address] [place] [address]Dr. Tadeo Smyth EGFR-NON AF [place] >60 Normal >=60 The [facility] Comment on above: Performed By: #### M G, VIJI, LIPA, CMP ####[facility] Z[address] [place] [address]Dr. Tadeo Smyth Globulin (S) [Mass/Vol] 3.6 g/dL Normal The [facility] Comment on above: Performed By: #### M G, VIJI, LIPA, CMP ####[facility] V[address] [place], [place] [address]Dr. Tadeo Smyth Glucose [Mass/Vol] 100 mg/dL Normal 74-106 [facility] Comment on above: Performed By: #### M Ayan, VIJI, LIPA, CMP ####[facility] Pioduulrjd[address] [place], [place] [address]Dr. Tadeo Smyth Potassium [Moles/Vol] 4.1 mmol/L Normal 3.5-5.1 The [facility] Comment on above: Performed By: #### M G, VIJI, LIPA, CMP ####[facility] Drphcbltwu[address] [place], [place] [address]Dr. Tadeo Smyth Protein [Mass/Vol] 7.2 g/dL Normal 6.4-8.2 [facility] Comment on above: Performed By: #### M G, VIJI, LIPA, CMP ####[facility] Upwhqbeuin[address] [place], [place] [address]Dr. Tadeo Smyth Sodium [Moles/Vol] 140 mmol/L Normal 136-145 [facility] Comment on above: Performed By: #### M G, VIJI, LIPA, CMP ####[facility] X[address] [place], [place] [address]Dr. Tadeo Smyth Urea nitrogen [Mass/Vol] 15.0 mg/dL Normal 7.0-18.0 The [facility] Comment on above: Performed By: #### M G, VIJI, LIPA, CMP ####[facility] Quspwqwdgy[address] [place] [address]Dr. Tadeo Smyth Urea nitrogen/Creatinine [Mass ratio] 20.8 mg/mg Normal The [facility] Comment on above: Performed By: #### M Ayan, KEITH HALLMAN, CMP ####[facility] Qxkemntbrp[address] [place] [address]Dr. Tadeo Smyth UA RANDOM W/MICROSCOPICon BACTERIA TRACE Abnormal NONE SEEN The [facility] Comment on above: Performed By: #### U AMIC ####[facility] M[address]fe[address] [place], [place] [address]Dr. Tadeo Smyth Bilirubin Ql (U) Negative Normal NEGATIVE The [facility] Comment on above: Performed By: #### U AMIC ####[facility] Lmdrcvyeda[address] [place], [place] [address]Dr. Tadeo Smyth CAST NONE SEEN Normal NONE SEEN The [facility] Comment on above: Performed By: #### U AMIC ####[facility] Azpoqe[address]wh[address] [place], [place] [address]Dr. Tadeo Smyth Clarity (U) CLEAR Normal CLEAR The [facility] Comment on above: Performed By: #### U AMIC ####[facility] K[address]ox[address] [place], [place] [address]Dr. Tadeo Smyth Color (U) LT. YELLOW Normal YELLOW The [facility] Comment on above: Performed By: #### U AMIC ####[facility] Rivhmxdbtm[address] [place], [place] [address]Dr. Tadeo Smyth Crystals LM Nom (Urine sed) NONE SEEN Normal NONE SEEN The [facility] Comment on above: Performed By: #### U AMIC ####[facility] S[address] [place], [place] [address]Dr. Tadeo Smyth Epithelial cells LM Ql (Urine sed) RARE Normal NONE SEEN /RARE The [facility] Comment on above: Performed By: #### U AMIC ####[facility] Szubpouiui[address] [place], [place] [address]Dr. Tadeo Smyth Glucose Ql (U) Negative Normal NEGATIVE The [facility] Comment on above: Performed By: #### U AMIC ####[facility] Hpzqevmtbi[address] [place] [address]Dr. Margotnicole Haja Hemoglobin Ql (U) TRACE-LYSED Abnormal NEGATIVE [facility] Comment on above: Performed By: #### U AMIC ####[facility] Ajrmgvksot16[address] [place] [address]Dr. Tadeo Smyth Ketones Ql (U) Negative Normal NEGATIVE The [facility] Comment on above: Performed By: #### U AMIC ####[facility] Ach[address]owr[address] [place], [place] [address]Dr. Tadeo Smyth LEUKOCYTES Negative Normal NEGATIVE [facility] Comment on above: Performed By: #### U AMIC ####[facility] Pftzlvt[address] [place], [place] [address]Dr. Tadeo Smyth MUCOUS NONE SEEN Normal NONE SEEN The [facility] Comment on above: Performed By: #### U AMIC ####[facility] [address]sm[address]cl[address]rc[address] [place], [place] [address]Dr. Tadeo Smyth Nitrite Ql (U) Negative Normal NEGATIVE [facility] Comment on above: Performed By: #### U AMIC ####[facility] [address] [place], [place] [address]Dr. Tadeo Smyth pH (U) 6.0 [pH] Normal 5-9 [facility] Comment on above: Performed By: #### U AMIC ####[facility] Sejgorqdlw[address] [place], [place] [address]Dr. Tadeo Smyth RBC 0-2 Normal 0-2 [facility] Comment on above: Performed By: #### U AMIC ####[facility] [address] [place], [place] [address]Dr. Tadeo Smyth SPEC GRAVITY 1.010 Normal 1.005-<=1.0 25 [facility] Comment on above: Performed By: #### U AMIC ####[facility] Upwwdnswjs[address] [place], [place] [address]Dr. Tadeo Smyth UA PROTEIN Negative Normal NEGATIVE/ TRACE The [facility] Comment on above: Performed By: #### U AMIC ####[facility] [address] [place], [place] [address]Qu. Tadeo Smyth Urobilinogen Qn (U) 0.2 {Benito'U}/dL Normal 0.2 - 1. 0 The [facility] Comment on above: Performed By: #### U AMIC ####[facility] [address] [place], [place] [address]Td. Margotnicole Smyth WBC 0-2 Abnormal NONE SEEN The [facility] Comment on above: Performed By: #### U AMIC ####[facility] [address] [place], [place] [address]Lu. Tadeo Smyth Activated partial thrombopla stin time (aPTT) in platelet poor plasma by coagulation aOrdered By: Conner Griffith on 10-26-2022 aPTT Coag (PPP) [Time] 30.8 s 25.1-36.5 [facility] Albumin [Mass/volume] in Ser um or PlasmaOrdered By: Conner Griffith on 10-26-2022 Albumin [Mass/Vol] 3.6 g/dL 3.2-5.5 [facility] Automated erythrocytes count in urine sediment (number/area)Ordered By: Conner Griffith on 10-26-2022 RBC Auto (Urine sed) [#/Area] 0-1 [HPF] 0-4 [facility] Automated leukocytes count i n urine sediment (number/area)Ordered By: Conner Griffith on 10-26-2022 WBC Auto (Urine sed) [#/Area] None seen [HPF] 0-4 [facility] Basophils Auto (Bld) [#/Vol] Ordered By: Conner Griffith on 10-26-2022 Basophils (Bld) [#/Vol] 0.0 10*3/uL 0.0-0.2 [facility] Basophils/100 WBC Auto (Bld) Ordered By: Conner Griffith on 10-26-2022 Basophils/100 WBC (Bld) 0.6 % . [facility] Bilirubin Test strip Ql (U)O rdered By: Conner Griffith on 10-26-2022 Bilirubin Ql (U) Negative Negative [facility] Color Auto (U)Ordered By: Kevin Griffith on 10-26-2022 Color (U) Yellow Yellow [facility] Creatinine and Glomerular fi ltration rate.predicted panel (S/P/Bld)Ordered By: Conner Griffith on 10-26-2022 Creatinine [Mass/Vol] 0.81 mg/dL 0.44-1.03 [facility] Eosinophils Auto (Bld) [#/Vo l]Ordered By: Conner Griffith on 10-26-2022 Eosinophils (Bld) [#/Vol] 0.2 10*3/uL 0.0-0.45 [facility] Eosinophils/100 WBC Auto (Bl d)Ordered By: Conner Griffith on 10-26-2022 Eosinophils/100 WBC (Bld) 3.3 % . [facility] Erythrocyte distribution wid th Auto (RBC) [Ratio]Ordered By: Conner Griffith on 10-26-2022 Erythrocyte distribution width (RBC) [Ratio] 14.5 % 11.9-15.3 [facility] Estimated glomerular filtrat ion rate (GFR) non- AmericanOrdered By: Conner Griffith on 10-26-2022 GFR/1.73 sq M.predicted among non-blacks MDRD (S/P/Bld) [Vol rate/Area] > 60 mL/Min [facility] Globulin Calc (S) [Mass/Vol] Ordered By: Conner Griffith on 10-26-2022 Globulin (S) [Mass/Vol] 3.2 g/dL [facility] Hematocrit Auto (Bld) [Volum e fraction]Ordered By: Conner Griffith on 10-26-2022 Hematocrit (Bld) [Volume fraction] 36.7 % 34.0-46.4 [facility] Hemoglobin [Mass/volume] in BloodOrdered By: Conner Griffith on 10-26-2022 Hemoglobin (Bld) [Mass/Vol] 12.1 g/dL 11.8-15.4 [facility] Ketones Auto test strip (U) [Mass/Vol]Ordered By: Conner Griffith on 10-26-2022 Ketones (U) [Mass/Vol] Negative Negative [facility] Laboratory - Chemistry and C hemistry - challengeOrdered By: Conner Griffith on 10-26-2022 Lipase [Catalytic activity/Vol] 37.0 U/L 22-51 [facility] Laboratory - CoagulationOrde red By: Conner Griffith on 10-26-2022 PT Coag (PPP) [Time] 10.6 s 9.0-12.9 [facility] - UrinalysisOrder ed By: Conner Griffith on 10-26-2022 Hyaline casts LM Ql (Urine sed) None seen [LPF] 0-8 [facility] Leukocytes [#/volume] correc jun for nucleated erythrocytes in Blood by Automated counOrdered By: Conner Griffith on 10-26-2022 WBC corrected for nucl RBC Auto (Bld) [#/Vol] 6.3 10*3/uL 3.8-11.6 [facility] Lymphocytes Auto (Bld) [#/Vo l]Ordered By: Conner Griffith on 10-26-2022 Lymphocytes (Bld) [#/Vol] 1.9 10*3/uL 1.00-4.8 [facility] Lymphocytes/100 WBC Auto (Bl d)Ordered By: Conner Griffith on 10-26-2022 Lymphocytes/100 WBC (Bld) 29.7 % . [facility] MCH Auto (RBC) [Entitic mass ]Ordered By: Conner Griffith on 10-26-2022 MCH (RBC) [Entitic mass] 29.3 pg 24.7-34.3 [facility] MCHC Auto (RBC) [Mass/Vol]Or dered By: Conner Griffith on 10-26-2022 MCHC (RBC) [Mass/Vol] 33.1 g/dL 32.0-35.0 [facility] MCV Auto (RBC) [Entitic vol] Ordered By: Conner Griffith on 10-26-2022 MCV (RBC) [Entitic vol] 88.5 fL 80-100 [facility] Monocyte distribution width [Entitic volume] in Blood by AutomatedOrdered By: Conner Griffith on 10-26-2022 Monocyte distribution width Auto (Bld) [Entitic vol] 16.27 % 0.00-20.00 [facility] Monocytes Auto (Bld) [#/Vol] Ordered By: Conner Griffith on 10-26-2022 Monocytes (Bld) [#/Vol] 0.4 10*3/uL 0.0-0.8 [facility] Monocytes/100 WBC Auto (Bld) Ordered By: Conner Griffith on 10-26-2022 Monocytes/100 WBC (Bld) 7.1 % . [facility] Neutrophils Auto (Bld) [#/Vo l]Ordered By: Conner Griffith on 10-26-2022 Neutrophils (Bld) [#/Vol] 3.7 10*3/uL 1.8-7.7 [facility] Neutrophils/100 WBC Auto (Bl d)Ordered By: Conner Griffith on 10-26-2022 Neutrophils/100 WBC (Bld) 59.3 % . [facility] Nitrite Test strip Ql (U)Ord ered By: Conner Griffith on 10-26-2022 Nitrite Ql (U) Negative Negative [facility] No Panel InformationOrdered By: Conner Griffiht on 10-26-2022 Estimated GFR () > 60 mL/Min [facility] Comment on above: GFR estimated refere nce range: According to KDOQI guidelines, <60 ml/min/1.73m2 is sufficient to diagnose a patient with chronic kidney disease. Pharmacy Creatinine Clearance (Chem 93.01 [facility] Nucleated erythrocytes [Pres ence] in Blood by Automated countOrdered By: Conner Griffith on 10-26-2022 Nucleated RBC Auto Ql (Bld) 0.3 /100{WBC} 0-0.5 [facility] Platelet mean volume Auto (B ld) [Entitic vol]Ordered By: Conner Griffith on 10-26-2022 Platelet mean volume (Bld) [Entitic vol] 7.5 fL 6.3-10.7 [facility] Platelet poor plasma interna tional normalized ratio (INR) by coagulation assay (relatOrdered By: Conner Griffith on 10-26-2022 INR Coag (PPP) [Relative time] 0.9 {INR} [facility] Comment on above: INR [...] (Bld) [#/Vol] 379 10*3/uL 150-450 [facility] Protein Auto test strip (U) [Mass/Vol]Ordered By: Conner Griffith on 10-26-2022 Protein (U) [Mass/Vol] Negative Negative [facility] Protein [Mass/volume] in Ser um or PlasmaOrdered By: Conner Griffith on 10-26-2022 Protein [Mass/Vol] 6.8 g/dL 6.1-7.9 [facility] RBC Auto (Bld) [#/Vol]Ordere d By: Conner Griffith on 10-26-2022 RBC (Bld) [#/Vol] 4.14 10*6/uL 3.60-5.00 [facility] Serum or plasma alanine cooley otransferase measurement without P-5'-P (enzymatic activiOrdered By: Conner Griffith on 10-26-2022 ALT No additional P-5'-P [Catalytic activity/Vol] 18 U/L 10-60 [facility] Serum or plasma albumin/glob ulin mass ratioOrdered By: Conner Griffith on 10-26-2022 Albumin/Globulin [Mass ratio] 1.1 {ratio} [facility] Serum or plasma alkaline augustin sphatase measurement (enzymatic activity/volume)Ordered By: Conner Griffith on 10-26-2022 ALP [Catalytic activity/Vol] 121 U/L 32-92 [facility] Serum or plasma anion gap de terminationOrdered By: Conner Griffith on 10-26-2022 Anion gap [Moles/Vol] 11.3 mmol/L 6.0-15.0 [facility] Serum or plasma aspartate am inotransferase measurement (enzymatic activity/volume)Ordered By: Conner Griffith on 10-26-2022 AST [Catalytic activity/Vol] 19 U/L 10-42 [facility] Serum or plasma calcium julee urement (mass/volume)Ordered By: Conner Griffith on 10-26-2022 Calcium [Mass/Vol] 8.9 mg/dL 8.2-10.2 [facility] Serum or plasma chloride julio surement (moles/volume)Ordered By: Conner Griffith on 10-26-2022 Chloride [Moles/Vol] 108 mmol/L 95-114 [facility] Serum or plasma glucose julee [...] Potassium [Moles/Vol] 3.4 mmol/L 3.5-5.1 [facility] Serum or plasma sodium measu rement (moles/volume)Ordered By: Conner Griffith on 10-26-2022 Sodium [Moles/Vol] 141 mmol/L 136-146 [facility] Serum or plasma total biliru bin measurement (mass/volume)Ordered By: Conner Griffith on 10-26-2022 Bilirubin [Mass/Vol] 0.4 mg/dL 0.3-1.2 [facility] Serum or plasma total carbon dioxide measurement (moles/volume)Ordered By: Conner Griffith on 10-26-2022 CO2 [Moles/Vol] 25.1 mmol/L 22.0-30.0 [facility] Serum or plasma urea nitroge n measurement (mass/volume)Ordered By: Conner Griffith on 10-26-2022 Urea nitrogen [Mass/Vol] 18 mg/dL - [facility] Specific gravity Auto test s trip (U) [Rel density]Ordered By: Conner Griffith on 10-26-2022 Specific gravity (U) [Rel density] 1.019 1.001-1.030 [facility] Squamous epithelial cells de tection in urine sediment by light microscopyOrdered By: Conner Griffith on 10-26-2022 Epithelial cells.squamous LM Ql (Urine sed) 1-2 [HPF] 0-2 [facility] Urine bacteria detection by automated methodOrdered By: Conner Griffith on 10-26-2022 Bacteria Auto Ql (U) None seen None Seen [facility] Urine clarity by refractomet ry automatedOrdered By: Conner Griffith on 10-26-2022 Clarity Refractometry automated (U) Clear Clear [facility] Urine glucose measurement by automated test strip (mass/volume)Ordered By: Conner Griffith on 10-26-2022 Glucose Auto test strip (U) [Mass/Vol] Normal mg/dL Normal [facility] Urine hemoglobin detection b y automated test stripOrdered By: Conner Griffith on 10-26-2022 Hemoglobin Auto test strip Ql (U) Negative Negative [facility] Urine lactic acid measuremen tOrdered By: Conner Griffith on 10-26-2022 Lactate (U) [Moles/Vol] 1.0 mmol/L 0.5-2.2 [facility] Urine leukocyte esterase det ection by automated test stripOrdered By: Conner Griffith on 10-26-2022 Leukocyte esterase Auto test strip Ql (U) 1+ Negative [facility] Urobilinogen Auto test strip (U) [Mass/Vol]Ordered By: Conner Griffith on 10-26-2022 Urobilinogen (U) [Mass/Vol] Normal mg/dL Normal [facility] WBC Auto (Bld) [#/Vol]Ordere d By: Conner Griffith on 10-26-2022 WBC (Bld) [#/Vol] 6.3 10*3/uL 3.8-11.6 [facility] pH Auto test strip (U)Ordere d By: Conner Griffith on 10-26-2022 pH (U) 6.5 [pH] 5.0-9.0 [facility] CBC AUTO DIFFon 09-21-2022 BASO # 0.0 103/ul Normal 0.0-0.1 [facility] Comment on above: Performed By: #### C BC ####[facility] [address] [place] [id number]. Tadeo Smyth Basophils/100 WBC (Bld) 0.4 % Normal 0.2-2.0 [facility] Comment on above: Performed By: #### C BC ####[facility] I[address] [place], [place] [id number]. Tadeo Smyth EO # 0.1 103/ul Normal 0.0-0.7 [facility] Comment on above: Performed By: #### C BC ####[facility] Ntav[address] [place], [place] [id number]. Tadeo Smyth Eosinophils/100 WBC (Bld) 1.8 % Normal 0.9-7.0 [facility] Comment on above: Performed By: #### C BC ####[facility] Llcfixvgul[address] [place], [place] [address]Dr. Tadeo Smyth Erythrocyte distribution width (RBC) [Ratio] 13.8 % Normal 11.0-15.0 [facility] Comment on above: Performed By: #### C BC ####[facility] Jjcmfpwmxi[address] [place], [place] [id number]. Tadeo Smyth Hematocrit (Bld) [Volume fraction] 41.0 % Normal 36.0-48.0 [facility] Comment on above: Performed By: #### C BC ####[facility] Efsqegxdxc[address] [place], [place] [address]Dr. Tadeo Smyth Hemoglobin (Bld) [Mass/Vol] 13.3 g/dL Normal 12.0-16.0 [facility] Comment on above: Performed By: #### C BC ####[facility] Mow[address]oppuv[address] [place], [place] [address]Dr. Tadeo Smyth IG # 0.01 10e3/ul Normal 0.00-0.03 [facility] Comment on above: Performed By: #### C BC ####[facility] U[address]tf[address]xv[address] [place], [place] [address]Dr. Tadeo Smyth IG % 0.1 % Normal 0.0-0.5 [facility] Comment on above: Performed By: #### C BC ####[facility] Kodkz[address] [place] [id number]. Tadeo Haja LYMPH # 1.7 103/ul Normal 1.2-3.8 [facility] Comment on above: Performed By: #### C BC ####[facility] C[address]uehmcqt[address] [place] [id number]. Margotnicole Smyth Lymphocytes/100 WBC (Bld) 24.8 % Normal 20.5-60.0 [facility] Comment on above: Performed By: #### C BC ####[facility] V[address]rpfss[address] [place] [id number]. Tadeo Smyth MANUAL DIFF REQ NO Normal [facility] Comment on above: Performed By: #### C BC ####[facility] Jsjftlxkcy4062 [place] [phone]. Tadeo Smyth MCH (RBC) [Entitic mass] 29.0 pg Normal 26.7-34.0 [facility] Comment on above: Performed By: #### C BC ####[facility] Dwarhmncqy[address] [place] [phone]. Tadeo Haja MCHC (RBC) [Mass/Vol] 32.4 g/dL Normal 29.9-35.2 [facility] Comment on above: Performed By: #### C BC ####[facility] Z[address]louyfmg[address] [place] [phone]. Tadeo Smyth MCV (RBC) [Entitic vol] 89.3 fL Normal 81.0-99.0 [facility] Comment on above: Performed By: #### C BC ####[facility] [address]ts[address] [place] [address]Dr. Tadeo Smyth MONO # 0.5 103/ul Normal 0.3-0.8 [facility] Comment on above: Performed By: #### C BC ####[facility] Mklzaymgpd5974 [place] [phone]. Tadeo Smyth Monocytes/100 WBC (Bld) 6.9 % Normal 1.7-12.0 [facility] Comment on above: Performed By: #### C BC ####[facility] Kklfaxvoav25[address] [place] [phone]. Tadeo Smyth NEUT # 4.5 103/ul Normal 1.4-6.5 [facility] Comment on above: Performed By: #### C BC ####[facility] Fwqylrlttc10[address] [place] [phone]. Tadeo Smyth Neutrophils/100 WBC (Bld) 66.0 % Normal 43.0-75.0 [facility] Comment on above: Performed By: #### C BC ####[facility] Orq[address]yuqui[address] [place] [address]Dr. Tadeo Smyth Platelet mean volume (Bld) [Entitic vol] 8.8 fL Critically low 9.5-13.5 [facility] Comment on above: Performed By: #### C BC ####[facility] Ixrzvqm[address] [place], [place] [address]Dr. Tadeo Smyth PLT 384 103/ul Normal 150-450 [facility] Comment on above: Performed By: #### C BC ####[facility] Xgvwybxuhj22[address] [place] [phone]. Tadeo Smyth RBC 4.59 106/ul Normal 4.20-5.40 [facility] Comment on above: Performed By: #### C BC ####[facility] Xvmtzaussw20[address] [place] [phone]. Tadeo Symth WBC 6.8 103/ul Normal 4.0-11.0 [facility] Comment on above: Performed By: #### C BC ####[facility] E[address]aq[address]esm[address] [place] [phone] Smyth PROF CHEM 8 (BAS METB)on Anion gap [Moles/Vol] 13.8 mmol/L Normal [facility] Comment on above: Performed By: #### B MP ####[facility] [address]olvu[address] [place] [address]Dr. Tadeo Smyth Calcium [Mass/Vol] 9.6 mg/dL Normal 8.5-10.1 [facility] Comment on above: Performed By: #### B MP ####[facility] [address]uz[address] [place] [address]Dr. Tadeo Smyth Chloride [Moles/Vol] 106 mmol/L Normal 98-107 [facility] Comment on above: Performed By: #### B MP ####[facility] Xlwdnanrea13[address] [place] [address]Dr. Tadeo Smyth CO2 [Moles/Vol] 25.9 mmol/L Normal 21.0-32.[address] [facility] Comment on above: Performed By: #### B MP ####[facility] Dedhxdpxwk33[address] [place] [address]Dr. Tadeo Smyth Creatinine [Mass/Vol] 0.92 mg/dL Normal 0.55-1.02 [facility] Comment on above: Performed By: #### B MP ####[facility] Tbeq[address]znxfu[address] [place] [address]Dr. Tadeo Smyth EGFR-AF [place] >60 Normal >=[address] [facility] Comment on above: Performed By: #### B MP ####[facility] Judiaphjtk40[address] [place] [address]Dr. Tadeo Smyth EGFR-NON AF [place] >60 Normal >=60 [facility] Comment on above: Performed By: #### B MP ####[facility] Knavfjzqmx3[address] [place] [address]Dr. Tadeo Smyth Glucose [Mass/Vol] 98 mg/dL Normal 74-106 [facility] Comment on above: Performed By: #### B MP ####[facility] Scvcnprsnz[address] [place] [address]Dr. Tadeo Smyth Potassium [Moles/Vol] 3.7 mmol/L Normal 3.5-5.1 [facility] Comment on above: Performed By: #### B MP ####[facility] Xjrowguvhp4[address] [place] [address]Dr. Margotnicole Smyth Sodium [Moles/Vol] 142 mmol/L Normal 136-145 [facility] Comment on above: Performed By: #### B MP ####[facility] Jzgupbhhzo76[address] [place] [phone]. Tadeo Smyth Urea nitrogen [Mass/Vol] 19.0 mg/dL Critically high 7.0-18.0 [facility] Comment on above: Performed By: #### B MP ####[facility] Fdgsluibcb75[address] [place] [address]Dr. Tadoe Haja Urea nitrogen/Creatinine [Mass ratio] 20.7 mg/mg Normal [facility] Comment on above: Performed By: #### B MP ####[facility] Qgyonmeuyg[address] [place], [place] [address]Dr. Tadeo Haja XR KUB 1 VIEWon 09-21-2022 XR KUB 1 VIEW Normal [facility] AMYLASEon 09-18-2022 Amylase [Catalytic activity/Vol] 58 U/L Normal 25-115 [facility] Comment on above: Performed By: #### L IPA, CMP, VIJI ####[facility] Oqelruxiud[address] [place], [place] [address]Dr. Tadeo Haja CBC AUTO DIFFon 09-18-2022 BASO # 0.0 103/ul Normal 0.0-0.1 [facility] Comment on above: Performed By: #### C BC ####[facility] Lcchisnchd[address] [place], [place] [address]Dr. Margotnicole Smyth Basophils/100 WBC (Bld) 0.3 % Normal 0.2-2.0 [facility] Comment on above: Performed By: #### C BC ####[facility] Iclvmhxyaz[address] [place], [place] [address]Dr. Tadeo Haja EO # 0.1 103/ul Normal 0.0-0.7 [facility] Comment on above: Performed By: #### C BC ####[facility] Optxrumfxa[address] [place], [place] [address]Dr. Margotnicole Smyth Eosinophils/100 WBC (Bld) 1.8 % Normal 0.9-7.0 [facility] Comment on above: Performed By: #### C BC ####[facility] Tgwdzaatiu[address] [place], [place] [address]Dr. Tadeo Smyth Erythrocyte distribution width (RBC) [Ratio] 13.7 % Normal 11.0-15.0 [facility] Comment on above: Performed By: #### C BC ####[facility] Begruprkkt[address] [place] [address]Dr. Tadeo Smyht Hematocrit (Bld) [Volume fraction] 37.4 % Normal 36.0-48.0 [facility] Comment on above: Performed By: #### C BC ####[facility] Vkuiobunkb30[address] [place] [address]Dr. Tadeo Smyth Hemoglobin (Bld) [Mass/Vol] 12.3 g/dL Normal 12.0-16.0 [facility] Comment on above: Performed By: #### C BC ####[facility] Livnxhhxwd[address] [place], [place] [address]Dr. Tadeo Smyth IG # 0.02 10e3/ul Normal 0.00-0.03 [facility] Comment on above: Performed By: #### C BC ####[facility] Lymfopyast[address] [place], [place] [address]Dr. Tadeo Smyth IG % 0.3 % Normal 0.0-0.5 [facility] Comment on above: Performed By: #### C BC ####[facility] Pexocixsen[address] [place], [place] [address]DrNeo Tadeo Smyth LYMPH # 2.2 103/ul Normal 1.2-3.8 [facility] Comment on above: Performed By: #### C BC ####[facility] Jprabzdorp[address] [place], [place] [address]DrNeo Margotnicole Smyth Lymphocytes/100 WBC (Bld) 29.3 % Normal 20.5-60.0 [facility] Comment on above: Performed By: #### C BC ####[facility] Beouqxelyq[address] [place], [place] [address]DrNeo Margotnicole Smyth MANUAL DIFF REQ NO Normal [facility] Comment on above: Performed By: #### C BC ####[facility] Eedwksmqyt[address] [place], [place] [address]DrNeo Margotnicole Smyth MCH (RBC) [Entitic mass] 29.0 pg Normal 26.7-34.0 [facility] Comment on above: Performed By: #### C BC ####[facility] Jpmmrmaadj4346 [place] [address]DrNeo Smyth MCHC (RBC) [Mass/Vol] 32.9 g/dL Normal 29.9-35.2 [facility] Comment on above: Performed By: #### C BC ####[facility] Hrwaiudkgl[address] [place], [place] [address]DrNeo Smyth MCV (RBC) [Entitic vol] 88.2 fL Normal 81.0-99.0 [facility] Comment on above: Performed By: #### C BC ####[facility] Cwpnnqhvgm[address] [place], [place] [address]DrNeo Smyth MONO # 0.5 103/ul Normal 0.3-0.8 [facility] Comment on above: Performed By: #### C BC ####[facility] Uiopuzqxcl[address] [place], [place] [address]DrNeo Smyth Monocytes/100 WBC (Bld) 6.4 % Normal 1.7-12.0 [facility] Comment on above: Performed By: #### C BC ####[facility] Cjzepsmgde19[address] [place], [place] [address]DrNeo Smyth NEUT # 4.7 103/ul Normal 1.4-6.5 [facility] Comment on above: Performed By: #### C BC ####[facility] Pqopvicmhm[address] [place], [place] [address]DrNeo Smyth Neutrophils/100 WBC (Bld) 61.9 % Normal 43.0-75.0 [facility] Comment on above: Performed By: #### C BC ####[facility] Mzviyivdny[address] [place], [place] [address]DrNeo Smyth Platelet mean volume (Bld) [Entitic vol] 9.0 fL Critically low 9.5-13.5 [facility] Comment on above: Performed By: #### C BC ####[facility] Winemwppqc[address] [place], [place] [address]Dr. Tadeo Smyth PLT 395 103/ul Normal 150-450 [facility] Comment on above: Performed By: #### C BC ####[facility] Yohemqxzig7987 [place] [address]Dr. Tadeo Smyth RBC 4.24 106/ul Normal 4.20-5.40 [facility] Comment on above: Performed By: #### C BC ####[facility] Nmhdezvrpr4065 [place] [address]Dr. Tadeo Smyth WBC 7.6 103/ul Normal 4.0-11.0 [facility] Comment on above: Performed By: #### C BC ####[facility] Vaumfqrzij84[address] [place], [place] [address]Dr. Tadeo Smyth CT ABD/PELV W CONon 09-18-[address] ABD/PELV W CON Normal [facility] ER URINE PROFILEon 3 Bilirubin Ql (U) SMALL Abnormal NEGATIVE [facility] Comment on above: Performed By: #### SANDRO MERCHANTRO ####[facility] Fmzeydwlbp[address] [place], [place] [address]Dr. Tadeo Smyth Clarity (U) CLEAR Normal CLEAR [facility] Comment on above: Performed By: #### KAROL MERCHANT ####[facility] Czbnfgkfbv[address] [place], [place] [address]Dr. Tadeo Smyth Color (U) DK. YELLOW Normal YELLOW [facility] Comment on above: Performed By: #### KAROL MERCHANT ####[facility] Epxfxrilic64[address] [place], [place] [address]Dr. Tadeo Smyth ERUAHD A micrscopic examina tion will be performed if indicated. Normal [facility] Comment on above: Performed By: #### KAROL MERCHANT ####[facility] Lbfexajlrd[address] [place], [place] [address]Dr. Tadeo Smyth Glucose Ql (U) Negative Normal NEGATIVE The [facility] Comment on above: Performed By: #### KAROL MERCHANT ####[facility] Hxrmjfshuq[address] [place], [place] [address]Dr. Tadeo Smyth Hemoglobin Ql (U) SMALL Abnormal NEGATIVE [facility] Comment on above: Performed By: #### SANDRO MERCHANTRO ####[facility] Kmtwvjcrjb8173 [place] [address]Dr. Tadeo Smyth Ketones Ql (U) Negative Normal NEGATIVE [facility] Comment on above: Performed By: #### SANDRO MERCHANTRO ####[facility] Zxdsbormln[address] [place], [place] [address]Dr. Tadeo Smyth LEUKOCYTES Negative Normal NEGATIVE [facility] Comment on above: Performed By: #### SANDRO MERCHANTRO ####[facility] Zobswutxfw89[address] [place], [place] [address]Dr. Tadeo Smyth Nitrite Ql (U) Negative Normal NEGATIVE The [facility] Comment on above: Performed By: #### SANDRO MERCHANTRO ####[facility] Kyofxdueyf668[address] [place], [place] [address]Dr. Tadeo Smyth pH (U) 5.5 [pH] Normal 5-9 [facility] Comment on above: Performed By: #### SANDRO MERCHANTRO ####[facility] Yyukhrtgin[address] [place], [place] [address]Dr. Tadeo Smyth SPEC GRAVITY >=1.030 Abnormal 1.005-<=1.0 25 [facility] Comment on above: Performed By: #### SANDRO MERCHANTRO ####[facility] Qcoyskflro[address] [place], [place] [address]Dr. Tadeo Smyth UA PROTEIN TRACE Normal NEGATIVE/ TRACE [facility] Comment on above: Performed By: #### SANDRO MERCHANTRO ####[facility] Wiyzmhymvq[address] [place], [place] [address]Dr. Tadeo Smyth UR MICRO IND INDICATED Normal [facility] Comment on above: Performed By: #### SANDRO MERCHANTRO ####[facility] Giyhrggkss[address] [place], [place] [address]Dr. Tadeo Smyth Urobilinogen Qn (U) 0.2 {Benito'U}/dL Normal 0.2 - 1. 0 [facility] Comment on above: Performed By: #### E KAROL FRANCISCO ####[facility] Ot[address]ufymb[address] [place] [address]Dr. Tadeo Smyth LACTATE/LACTIC ACIDon 2022 Lactate [Moles/Vol] 1.1 mmol/L Normal 0.4-1.9 [facility] Comment on above: Performed By: #### L ACT ####[facility] Stkfdjioej38[address] [place] [address]Dr. Tadeo Smyth LIPASEon 09-18-2022 Lipase [Catalytic activity/Vol] 75.0 U/L Normal 73.0-393.0 [facility] Comment on above: Performed By: #### L IPA, CMP, VIJI ####[facility] Dlzgqngijv98[address] [place], [place] [address]Dr. Tadeo Smyth PROF 14(COMP METB)on 023 Albumin [Mass/Vol] 3.4 g/dL Normal 3.4-5.0 [facility] Comment on above: Performed By: #### L IPA, CMP, VIJI ####[facility] Oonbvmgwjc2864[address] [place], [place] [address]Dr. Tadeo Smyth Albumin/Globulin [Mass ratio] 0.9 {ratio} Normal [facility] Comment on above: Performed By: #### L IPA, CMP, VIJI ####[facility] Dubjiibnaa6[address] [place] [address]Dr. Tadeo Smyth ALP [Catalytic activity/Vol] 164 U/L Critically high 46-116 [facility] Comment on above: Performed By: #### L IPA, CMP, VIJI ####[facility] Achatxtmhr39[address] [place] [address]Dr. Tadeo Smyth ALT [Catalytic activity/Vol] 29 U/L Normal 14-59 [facility] Comment on above: Performed By: #### L IPA, CMP, VIJI ####[facility] Mjdakbwpwi28[address] [place] [address]Dr. Tadeo Smyth Anion gap [Moles/Vol] 12.3 mmol/L Normal [facility] Comment on above: Performed By: #### L IPA, CMP, VIJI ####[facility] Zykatvxfjq75[address] [place] [address]Dr. Tadeo Smyth AST [Catalytic activity/Vol] 30 U/L Normal 15-37 [facility] Comment on above: Performed By: #### L IPA, CMP, VIJI ####[facility] Voluedcxtb[address] [place], [place] [address]Dr. Tadeo Smyth Bilirubin [Mass/Vol] 0.3 mg/dL Normal 0.2-1.0 [facility] Comment on above: Performed By: #### L IPA, CMP, VIJI ####[facility] Qvgcuiosek[address] [place], [place] [address]Dr. Tadeo Smyth Calcium [Mass/Vol] 8.9 mg/dL Normal 8.5-10.1 [facility] Comment on above: Performed By: #### L IPA, CMP, VIJI ####[facility] Uiocdkkayp[address] [place], [place] [address]Dr. Tadeo Smyth Chloride [Moles/Vol] 103 mmol/L Normal 98-107 [facility] Comment on above: Performed By: #### L IPA, CMP, VIJI ####[facility] Alfdzqvxly[address] [place], [place] [address]Dr. Tadeo Smyth CO2 [Moles/Vol] 27.8 mmol/L Normal 21.0-32.[address] [facility] Comment on above: Performed By: #### L IPA, CMP, VIJI ####[facility] Zbzmuwayvx9[address] [place], [place] [address]Dr. Tadeo Smyth Creatinine [Mass/Vol] 0.89 mg/dL Normal 0.55-1.02 [facility] Comment on above: Performed By: #### L IPA, CMP, VIJI ####[facility] Qxtdthfhfd[address] [place], [place] [address]Dr. Margotnicole Haja EGFR-AF [place] >60 Normal >=[address] [facility] Comment on above: Performed By: #### L IPA, CMP, VIJI ####[facility] Ntcpstohzc[address] [place], [place] [address]Dr. Tadeo Smyth EGFR-NON AF [place] >60 Normal >=60 The [facility] Comment on above: Performed By: #### L IPA CMP, VIJI ####[facility] Zcflxtbdza7[address] [place] [address]Dr. Tadeo Smyth Globulin (S) [Mass/Vol] 3.9 g/dL Normal The [facility] Comment on above: Performed By: #### L IPA CMP, VIJI ####[facility] Xygcnelzvc94[address] [place] [address]Dr. Tadeo Smyth Glucose [Mass/Vol] 96 mg/dL Normal 74-106 [facility] Comment on above: Performed By: #### L ISABEL CMP, VIJI ####[facility] Z[address]qlzvmlq[address] [place], [place] [address]Dr. Tadeo Smyth Potassium [Moles/Vol] 4.1 mmol/L Normal 3.5-5.1 The [facility] Comment on above: Performed By: #### L IPA CMP, VIJI ####[facility] Xvioclvwrn[address] [place], [place] [address]Dr. Tadeo Smyth Protein [Mass/Vol] 7.3 g/dL Normal 6.4-8.2 [facility] Comment on above: Performed By: #### L IPA CMP, VIJI ####[facility] Rosmawwiuu[address] [place], [place] [address]Dr. Tadeo Smyth Sodium [Moles/Vol] 139 mmol/L Normal 136-145 [facility] Comment on above: Performed By: #### L IPA CMP, VIJI ####[facility] Isdwjpmbuy10[address] [place], [place] [address]Dr. Tadeo Smyth Urea nitrogen [Mass/Vol] 19.0 mg/dL Critically high 7.0-18.0 The [facility] Comment on above: Performed By: #### L IPA CMP, VIJI ####[facility] Hkyagfpcxk99[address] [place] [address]Dr. Tadeo Smyth Urea nitrogen/Creatinine [Mass ratio] 21.3 mg/mg Normal The [facility] Comment on above: Performed By: #### L IPA CMP, VIJI ####[facility] Vpeyvnbbzz0146 [place] [address]Dr. Margotnicole Haja URINE MICROSCOPIC ONLYon BACTERIA TRACE Abnormal NONE SEEN The [facility] Comment on above: Performed By: #### SANDRO MERCHANTRO ####[facility] Yyetrxbrlq3043 [place] [address]Dr. Tadeo Smyth Bacteria identified Cx Nom (U) NOT INDICATED Normal The [facility] Comment on above: Performed By: #### SANDRO MERCHANTRO ####[facility] Epfktcpvbn80[address] [place], [place] [address]Dr. Tadeo Smyth CAST NONE SEEN Normal NONE SEEN The [facility] Comment on above: Performed By: #### SANDRO MERCHANTRO ####[facility] Jhjkpnyorl[address] [place], [place] [address]Dr. Tadeo Smyth Crystals LM Nom (Urine sed) SEEN Abnormal NONE SEEN The [facility] Comment on above: Performed By: #### SANDRO MERCHANTRO ####[facility] Edjfprkctr[address] [place], [place] [address]Dr. Tadeo Smyth Epithelial cells LM Ql (Urine sed) RARE Normal NONE SEEN /RARE The [facility] Comment on above: Performed By: #### SANDRO MERCHANTRO ####[facility] Mfouokfoqh[address] [place], [place] [address]Dr. Tadeo Smyth MUCOUS TRACE Abnormal NONE SEEN The [facility] Comment on above: Performed By: #### SANDRO MERCHANTRO ####[facility] Xpjtyjlfnr[address] [place], [place] [address]Dr. Tadeo Smyth RBC 0-2 Normal 0-2 The [facility] Comment on above: Performed By: #### SANDRO MERCHANTRO ####[facility] Bdyfsqphil[address] [place], [place] [address]Dr. Tadeo Smyth WBC 0-2 Abnormal NONE SEEN The [facility] Comment on above: Performed By: #### SANDRO MERCHANTRO ####[facility] Kvldiibvyu90[address] [place], [place] [address]Dr. Tadeo Smyth CBC AUTO DIFFon 09-14-2022 BASO # 0.0 103/ul Normal 0.0-0.1 [facility] Comment on above: Performed By: #### C BC ####[facility] Wcoocgnaxs32[address] [place] [address]Dr. Tadeo Smyth Basophils/100 WBC (Bld) 0.3 % Normal 0.2-2.0 The [facility] Comment on above: Performed By: #### C BC ####[facility] Mjsbolgvws9571 [place] [address]Dr. Tadeo Smyth EO # 0.2 103/ul Normal 0.0-0.7 The [facility] Comment on above: Performed By: #### C BC ####[facility] Xoblcnhhqj246[address] [place], [place] [address]Dr. Tadeo Smyth Eosinophils/100 WBC (Bld) 1.1 % Normal 0.9-7.0 The [facility] Comment on above: Performed By: #### C BC ####[facility] Ihkobqhhma[address] [place], [place] [address]Dr. Tadeo Smyth Erythrocyte distribution width (RBC) [Ratio] 13.7 % Normal 11.0-15.0 [facility] Comment on above: Performed By: #### C BC ####[facility] Euypkvfbqy[address] [place], [place] [address]Dr. Tadeo Smyth Hematocrit (Bld) [Volume fraction] 41.3 % Normal 36.0-48.0 [facility] Comment on above: Performed By: #### C BC ####[facility] Zbswqnefkm[address] [place], [place] [address]Dr. Tadeo Smyth Hemoglobin (Bld) [Mass/Vol] 13.6 g/dL Normal 12.0-16.0 The [facility] Comment on above: Performed By: #### C BC ####[facility] Jthvcbdnkv[address] [place], [place] [address]Dr. Tadeo Smyth IG # 0.05 10e3/ul Critically high 0.00-0.03 [facility] Comment on above: Performed By: #### C BC ####[facility] Vptbklycmx[address] [place], [place] [address]Dr. Tadeo Smyth IG % 0.4 % Normal 0.0-0.5 [facility] Comment on above: Performed By: #### C BC ####[facility] Rgfadctdvz0953 [place] [address]DrNeo Smyth LYMPH # 2.2 103/ul Normal 1.2-3.8 The [facility] Comment on above: Performed By: #### C BC ####[facility] Tlxaetbyhf8964 [place] [address]DrNeo Smyth Lymphocytes/100 WBC (Bld) 16.3 % Critically low 20.5-60.0 The [facility] Comment on above: Performed By: #### C BC ####[facility] Cvtqstxwoc[address] [place], [place] [address]DrNeo Smyth MANUAL DIFF REQ NO Normal The [facility] Comment on above: Performed By: #### C BC ####[facility] Tyktabcpah7437[address] [place], [place] [address]Dr. Tadeo Smyth MCH (RBC) [Entitic mass] 28.9 pg Normal 26.7-34.0 The [facility] Comment on above: Performed By: #### C BC ####[facility] Napblvauky[address] [place], [place] [address]DrNeo Smyth MCHC (RBC) [Mass/Vol] 32.9 g/dL Normal 29.9-35.2 The [facility] Comment on above: Performed By: #### C BC ####[facility] Jlcdxdpjcv12[address] [place], [place] [address]DrNeo Smyth MCV (RBC) [Entitic vol] 87.9 fL Normal 81.0-99.0 The [facility] Comment on above: Performed By: #### C BC ####[facility] Bsvgkpdxym8825[address] [place], [place] [address]DrNeo Smyth MONO # 0.7 103/ul Normal 0.3-0.8 The [facility] Comment on above: Performed By: #### C BC ####[facility] Samymclgzx65[address] [place], [place] [address]DrNeo Smyth Monocytes/100 WBC (Bld) 5.1 % Normal 1.7-12.0 The [facility] Comment on above: Performed By: #### C BC ####[facility] Afiufjsjzk4170 [place] [address]Dr. Tadeo Smyth NEUT # 10.3 103/ul Critically high 1.4-6.[address] [facility] Comment on above: Performed By: #### C BC ####[facility] Djhgkhbruo5938 [place] [address]Dr. Tadeo Smyth Neutrophils/100 WBC (Bld) 76.8 % Critically high 43.0-75.0 The [facility] Comment on above: Performed By: #### C BC ####[facility] Lwzdctgnap[address] [place], [place] [address]Dr. Tadeo Smyth Platelet mean volume (Bld) [Entitic vol] 8.8 fL Critically low 9.5-13.5 The [facility] Comment on above: Performed By: #### C BC ####[facility] Lutroqu[address] [place], [place] [address]Dr. Tadeo Smyth PLT 438 103/ul Normal 150-450 The [facility] Comment on above: Performed By: #### C BC ####[facility] Rkppsvnmya[address] [place], [place] [address]Dr. Tadeo Smyth RBC 4.70 106/ul Normal 4.20-5.40 The [facility] Comment on above: Performed By: #### C BC ####[facility] Pawekxsjrs[address] [place], [place] [address]Dr. Tadeo Smyth WBC 13.4 103/ul Critically high 4.0-11.[address] [facility] Comment on above: Performed By: #### C BC ####[facility] Xvbrftcupf[address] [place], [place] [address]Dr. Tadeo Smyth ER URINE PROFILEon 3 Bilirubin Ql (U) Negative Normal NEGATIVE The [facility] Comment on above: Performed By: #### E SARAH BETHR UMCHINEDURO ####[facility] Liiwrjcjdi[address] [place], [place] [address]Dr. Tadeo Smyth Clarity (U) CLEAR Normal CLEAR [facility] Comment on above: Performed By: #### RANDI MERCHANTICRO ####[facility] Ejpeolbwkn77[address] [place] [address]Dr. Tadeo Smyth Color (U) LT. YELLOW Normal YELLOW [facility] Comment on above: Performed By: #### Matthew FRANCISCO UMICRO ####[facility] Yjdvgdhucm0555 [place] [address]Dr. Tadeo Smyth ERUAHD A micrscopic examina tion will be performed if indicated. Normal The [facility] Comment on above: Performed By: #### Matthew FRANCISCO UMICRO ####[facility] Ukmonydtdk[address] [place], [place] [address]Dr. Tadeo Smyth Glucose Ql (U) Negative Normal NEGATIVE The [facility] Comment on above: Performed By: #### Matthew FRANCISCO UMICRO ####[facility] Xmkpjipptc[address] [place], [place] [address]Dr. Tadeo Smyth Hemoglobin Ql (U) TRACE-INTACT Abnormal NEGATIVE [facility] Comment on above: Performed By: #### Matthew FRANCISCO UMICRO ####[facility] Piqqijycft[address] [place], [place] [address]Dr. Tadeo Smyth Ketones Ql (U) Negative Normal NEGATIVE The [facility] Comment on above: Performed By: #### Matthew FRANCISCO UMICRO ####[facility] Yccobxdhed[address] [place], [place] [address]Dr. Tadeo Smyth LEUKOCYTES Negative Normal NEGATIVE [facility] Comment on above: Performed By: #### Matthew FRANCISCO UMICRO ####[facility] Vgbrbtprrz[address] [place], [place] [address]Dr. Tadeo Smyth Nitrite Ql (U) Negative Normal NEGATIVE The [facility] Comment on above: Performed By: #### Matthew FRANCISCO UMICRO ####[facility] Tcxzmswcbi[address] [place], [place] [address]Dr. Tadeo Smyth pH (U) 6.5 [pH] Normal 5-9 The [facility] Comment on above: Performed By: #### KAROL MERCHANT ####[facility] Rqfpxlxkav9551 [place] [address]Dr. Tadeo Smyth SPEC GRAVITY 1.020 Normal 1.005-<=1.0 25 [facility] Comment on above: Performed By: #### KAROL MERCHANT ####[facility] Qzjwuflfqw3898 [place] [address]Dr. Tadeo Smyth UA PROTEIN Negative Normal NEGATIVE/ TRACE The [facility] Comment on above: Performed By: #### KAROL MERCHANT ####[facility] Mdsyqbffbp7693 [place] [address]Dr. Tadeo Smyth UR MICRO IND INDICATED Normal The [facility] Comment on above: Performed By: #### KAROL MERCHANT ####[facility] Tjpaogkccw3721 [place] [address]Dr. Tadeo Smyth Urobilinogen Qn (U) 0.2 {Benito'U}/dL Normal 0.2 - 1. 0 [facility] Comment on above: Performed By: #### KAROL MERCHANT ####[facility] Vfgoqlacus5147 [place] [address]Dr. Tadeo Smyth LIPASEon 09-14-2022 Lipase [Catalytic activity/Vol] 117.0 U/L Normal 73.0-393.0 [facility] Comment on above: Performed By: #### H STROPN, CMP, LIPA ####[facility] Iyqpjzdbvb0159 [place] [address]Dr. Tadeo Smyth PROF 14(COMP METB)on 023 Albumin [Mass/Vol] 3.5 g/dL Normal 3.4-5.0 [facility] Comment on above: Performed By: #### H STROPN, CMP, LIPA ####[facility] Hyjwndpvsp2807 [place] [address]Dr. Tadeo Smyth Albumin/Globulin [Mass ratio] 0.8 {ratio} Normal [facility] Comment on above: Performed By: #### H STROPN, CMP, LIPA ####[facility] Hkthhsvrfx8504 [place] [address]Dr. Tdaeo Smyth ALP [Catalytic activity/Vol] 180 U/L Critically high 46-116 [facility] Comment on above: Performed By: #### H STROPN, CMP, LIPA ####[facility] Zldcgqzqrg7631 [place] [address]Dr. Tadeo Smyth ALT [Catalytic activity/Vol] 25 U/L Normal 14-59 [facility] Comment on above: Performed By: #### H STROPN, CMP, LIPA ####[facility] Cwhtrwxsbo3168 [place] [address]Dr. Tadeo Smyth Anion gap [Moles/Vol] 14.4 mmol/L Normal Th e [facility] Comment on above: Performed By: #### H STROPN, CMP, LIPA ####[facility] Dxsiemhtcw3437 [place] [address]Dr. Tadeo Smyth AST [Catalytic activity/Vol] 14 U/L Critically low 15-37 [facility] Comment on above: Performed By: #### H STROPN, CMP, LIPA ####[facility] Kofmcnhaid[address] [place] [address]Dr. Tadeo Smyth Bilirubin [Mass/Vol] 0.2 mg/dL Normal 0.2-1.0 [facility] Comment on above: Performed By: #### H STROPN, CMP, LIPA ####[facility] Utstfgpcnj4606 [place] [address]Dr. Tadeo Smyth Calcium [Mass/Vol] 9.4 mg/dL Normal 8.5-10.1 [facility] Comment on above: Performed By: #### H STROPN, CMP, LIPA ####[facility] Taosaqkbxk86[address] [place] [address]Dr. Tadeo Smyth Chloride [Moles/Vol] 107 mmol/L Normal 98-107 [facility] Comment on above: Performed By: #### H STROPN, CMP, LIPA ####[facility] Bhrkummtmd80[address] [place] [address]Dr. Tadeo Smyth CO2 [Moles/Vol] 23.9 mmol/L Normal 21.0-32.[address] [facility] Comment on above: Performed By: #### H STROPN, CMP, LIPA ####[facility] Acqzlpfubp0107 [place] [address]Dr. Tadeo Smyth Creatinine [Mass/Vol] 0.91 mg/dL Normal 0.55-1.02 The [facility] Comment on above: Performed By: #### H STROPN, CMP, LIPA ####[facility] Htuelqbnqn0532 [place] [address]Dr. Tadeo Smyth EGFR-AF [place] >60 Normal >=[address] [facility] Comment on above: Performed By: #### H STROPN, CMP, LIPA ####[facility] Bdfrjxjotl9389 [place] [address]Dr. Tadeo Smyth EGFR-NON AF [place] >60 Normal >=60 The [facility] Comment on above: Performed By: #### H STROPN, CMP, LIPA ####[facility] Tnsesarrrk4927 [place] [address]Dr. Tadeo Smyth Globulin (S) [Mass/Vol] 4.2 g/dL Normal The [facility] Comment on above: Performed By: #### H STROPN, CMP, LIPA ####[facility] [address] [place], [place] [address]Dr. Tadeo Smyth Glucose [Mass/Vol] 101 mg/dL Normal 74-106 [facility] Comment on above: Performed By: #### H STROPN, CMP, LIPA ####[facility] Nrajexhuqx7640 [place] [address]Dr. Tadeo Smyth Potassium [Moles/Vol] 3.3 mmol/L Critically low 3.5-5.1 The [facility] Comment on above: Performed By: #### H STROPN, CMP, LIPA ####[facility] Gefeioxgwx3761 [place] [address]Dr. Tadeo Smyth Protein [Mass/Vol] 7.7 g/dL Normal 6.4-8.2 [facility] Comment on above: Performed By: #### H STROPN, CMP, LIPA ####[facility] Mlhoiyyffd[address] [place] [id number]. Tadeo Smyth Sodium [Moles/Vol] 142 mmol/L Normal 136-145 [facility] Comment on above: Performed By: #### H STROPN, CMP, LIPA ####[facility] Dwrggqdtln2957 [place] [id number]. Tadeo Smyth Urea nitrogen [Mass/Vol] 17.0 mg/dL Normal 7.0-18.0 [facility] Comment on above: Performed By: #### H STROPN, CMP, LIPA ####[facility] Hwwdozcukk2821 [place] [id number]. Tadeo Smyth Urea nitrogen/Creatinine [Mass ratio] 18.7 mg/mg Normal [facility] Comment on above: Performed By: #### H STROPN, CMP, LIPA ####[facility] Ooeyiudxfg[address] [place] [address]Dr. Tadeo Smyth TROPONIN, HIGH SENSITIVITYon 09-14-2022 HSTROP 46.6 pg/mL Normal 4.0-51.3 [facility] Comment on above: Result Comment: CUT- OFF POINTS HAVE BEEN ESTABLISHED BASED ON THE FOURTH UNIVERSAL DEFINITIONS OF MYOCARDIALINFARCTION. THE UPPER REFERENCE LIMIT (URL) OF TROPONIN, DEFINED THE 99TH PERCENTILE OFcTnI DISTRIBUTION IN A REFERENCE POPULATION, HAS BEEN CONFIRMED THE DECISION THRESHOLDFOR IN DIAGNOSIS. Performed By: #### H STROYAZMIN, CMP, LIPA ####[facility] Nxdxpkmqdh30[address] [place] [address]Dr. Tadeo Haja URINE MICROSCOPIC ONLYon BACTERIA NONE SEEN Normal NONE SEEN [facility] Comment on above: Performed By: #### E NOLAN UMICRO ####[facility] Rzbygvxnwz6036 [place] [address]Dr. Tadeo Haja Bacteria identified Cx Nom (U) NOT INDICATED Normal The [facility] Comment on above: Performed By: #### Matthew FRANCISCO UMICRO ####[facility] Efrvjtbwde4763 [place] [id number]. Margotnicole Smyth CAST NONE SEEN Normal NONE SEEN [facility] Comment on above: Performed By: #### Matthew FRANCISCO UMCHINEDURO ####[facility] Jnvnclijse364[address] [place] [address]Dr. Margotnicole Smyth Crystals LM Nom (Urine sed) NONE SEEN Normal NONE SEEN The [facility] Comment on above: Performed By: #### Matthew FRANCISCO UMICRO ####[facility] Nkfglidkxq0413 [place] [address]Dr. Tadeo Smyth Epithelial cells LM Ql (Urine sed) FEW Abnormal NONE SEEN /RARE The [facility] Comment on above: Performed By: #### Matthew FRANCISCO UMICRO ####[facility] Fbyumhkapu8964 [place] [address]Dr. Tadeo Smyth MUCOUS MODERATE Abnormal NONE SEEN The [facility] Comment on above: Performed By: #### Matthew FRANCISCO UMCHINEDURO ####[facility] Mdcdchhnao6934 [place] [address]Dr. Tadeo Smyth RBC 0-2 Normal 0-2 The [facility] Comment on above: Performed By: #### Matthew FRANCISCO UMICRO ####[facility] Oronlfyaew25[address] [place] [address]Dr. Tadeo Smyth WBC NONE SEEN Normal NONE SEEN The [facility] Comment on above: Performed By: #### SANDRO MERCHANTRO ####[facility] Pdblfzfecl26[address] [place] [address]Dr. Margotnicole Smyth XR ABD FLAT UP_PA Kasey 09-14 XR ABD FLAT UP_PA CH Normal [facility] VC COMP CONSULTATIONon 09-06 VC COMP CONSULTATION Normal [facility] VC VENOUS REFLUX MACARIO LMTon 0 09-06-2022 VC VENOUS REFLUX MACARIO LMT Normal The [facility] XR KUB 1 VIEWon 08-18-2022 XR KUB 1 VIEW Normal The [facility] US RUBENS DOP LEG RTon 08-11-20 US RUBENS DOP LEG RT Normal [facility] AMYLASEon 08-08-2022 Amylase [Catalytic activity/Vol] 64 U/L Normal 25-115 The [facility] Comment on above: Performed By: #### C MP, VIJI, LIPA, CMADM ####[facility] Nutmjgtyek[address] [place] [id number]. Tadeo Haja CARDIAC NORA ADMITon 022 CK [Catalytic activity/Vol] 127 U/L Normal 26-192 The [facility] Comment on above: Performed By: #### C MP, VIJI, LIPA, CMADM ####[facility] Afmybsvlhy4533 [place] [address]Dr. Margotnicole Symth CK.MB [Mass/Vol] 1.71 ng/mL Normal <=3.[address] [facility] Comment on above: Performed By: #### C MP, VIJI, LIPA, CMADM ####[facility] Nxdrjualae2096 [place] [address]Dr. Tadeo Haja HSTROP 36.7 pg/mL Normal 4.0-51.3 The [facility] Comment on above: Result Comment: CUT- OFF POINTS HAVE BEEN ESTABLISHED BASED ON THE FOURTH UNIVERSAL DEFINITIONS OF MYOCARDIALINFARCTION. THE UPPER REFERENCE LIMIT (URL) OF TROPONIN, DEFINED THE 99TH PERCENTILE OFcTnI DISTRIBUTION IN A REFERENCE POPULATION, HAS BEEN CONFIRMED THE DECISION THRESHOLDFOR IN DIAGNOSIS. Performed By: #### C MP, VIJI, LIPA, CMADM ####[facility] Gyuhgzqqqr8738 [place] [address]Dr. Margotnicole Smyth AAKASH 23 ng/mL Normal 9-82 The [facility] Comment on above: Performed By: #### C MP, VIJI, LIPA, CMADM ####[facility] Zftkzinryy3786 [place] [address]Dr. Margotnicole Smyth CBC AUTO DIFFon 08-08-2022 BASO # 0.0 103/ul Normal 0.0-0.1 The [facility] Comment on above: Performed By: #### C BC ####[facility] Ewlqmltpov8[address] [place] [address]Dr. Margotnicole Smyth Basophils/100 WBC (Bld) 0.4 % Normal 0.2-2.0 The [facility] Comment on above: Performed By: #### C BC ####[facility] Idzhosnzoo2212 [place] [address]Dr. Tadeo Smyth EO # 0.1 103/ul Normal 0.0-0.7 The [facility] Comment on above: Performed By: #### C BC ####[facility] Cvlbkvhb[address] [place], [place] [address]Dr. Margotnicole Smyth Eosinophils/100 WBC (Bld) 1.5 % Normal 0.9-7.0 [facility] Comment on above: Performed By: #### C BC ####[facility] Ddxwggnxrl[address] [place], [place] [address]Dr. Tadeo Smyth Erythrocyte distribution width (RBC) [Ratio] 13.5 % Normal 11.0-15.0 The [facility] Comment on above: Performed By: #### C BC ####[facility] Mhqepbmzcb[address] [place], [place] [address]Dr. Tadeo Smyth Hematocrit (Bld) [Volume fraction] 37.0 % Normal 36.0-48.0 The [facility] Comment on above: Performed By: #### C BC ####[facility] Wwecvphswl[address] [place], [place] [address]Dr. Tadeo Smyth Hemoglobin (Bld) [Mass/Vol] 12.0 g/dL Normal 12.0-16.0 The [facility] Comment on above: Performed By: #### C BC ####[facility] Bzxzxlwwpy[address] [place], [place] [address]Dr. Tadeo Smyth IG # 0.02 10e3/ul Normal 0.00-0.03 The [facility] Comment on above: Performed By: #### C BC ####[facility] Ylpypabwqe[address] [place], [place] [address]Dr. Tadeo Smyth IG % 0.3 % Normal 0.0-0.5 The [facility] Comment on above: Performed By: #### C BC ####[facility] Nsqdnmkhgf125[address] [place], [place] [address]Dr. Tadeo Smyth LYMPH # 2.0 103/ul Normal 1.2-3.8 The [facility] Comment on above: Performed By: #### C BC ####[facility] Vghrwbtrrj[address] [place], [place] [address]Dr. Tadeo Smyth Lymphocytes/100 WBC (Bld) 27.9 % Normal 20.5-60.0 [facility] Comment on above: Performed By: #### C BC ####[facility] [address]hrzh[address] [place] [address]DrNeo Smyth MANUAL DIFF REQ NO Normal [facility] Comment on above: Performed By: #### C BC ####[facility] Afuzsidewk8561 [place] [phone]. Tadeo Smyth MCH (RBC) [Entitic mass] 28.9 pg Normal 26.7-34.0 [facility] Comment on above: Performed By: #### C BC ####[facility] Kadqhrxuti198[address] [place], [place] [address]Dr. Tadeo Smyth MCHC (RBC) [Mass/Vol] 32.4 g/dL Normal 29.9-35.2 The [facility] Comment on above: Performed By: #### C BC ####[facility] Jxwqafbwtj33[address] [place], [place] [address]Dr. Tadeo Smyth MCV (RBC) [Entitic vol] 89.2 fL Normal 81.0-99.0 The [facility] Comment on above: Performed By: #### C BC ####[facility] Kbvbiagglx[address] [place], [place] [address]DrNeo Smyth MONO # 0.5 103/ul Normal 0.3-0.8 [facility] Comment on above: Performed By: #### C BC ####[facility] Xhdyduvxtv[address] [place], [place] [address]Dr. Tadeo Smyth Monocytes/100 WBC (Bld) 6.7 % Normal 1.7-12.0 The [facility] Comment on above: Performed By: #### C BC ####[facility] Jsgcwygajz[address] [place], [place] [address]DrNeo Smyth NEUT # 4.5 103/ul Normal 1.4-6.5 The [facility] Comment on above: Performed By: #### C BC ####[facility] Ozpojasicx232[address] [place], [place] [address]DrNeo Smyth Neutrophils/100 WBC (Bld) 63.2 % Normal 43.0-75.0 [facility] Comment on above: Performed By: #### C BC ####[facility] Ynbhpaoaxz4[address] [place] [address]Dr. Tadeo Smyth Platelet mean volume (Bld) [Entitic vol] 9.0 fL Critically low 9.5-13.5 [facility] Comment on above: Performed By: #### C BC ####[facility] Uqhkiepukg4984 [place] [phone]. Tadeo Smyth PLT 382 103/ul Normal 150-450 The [facility] Comment on above: Performed By: #### C BC ####[facility] Ismkeoblnf50[address] [place] [address]Dr. Tadeo Smyth RBC 4.15 106/ul Critically low 4.20-5.40 [facility] Comment on above: Performed By: #### C BC ####[facility] Hsprzasnnh[address] [place], [place] [address]Dr. Tadeo Smyth WBC 7.1 103/ul Normal 4.0-11.0 The [facility] Comment on above: Performed By: #### C BC ####[facility] Unpmahstgh756[address] [place], [place] [address]Dr. Tadeo Smyth CT ABD/PELV W CONon 08-08-[address] ABD/PELV W CON Normal [facility] ER URINE PROFILEon 2 Bilirubin Ql (U) Negative Normal NEGATIVE The [facility] Comment on above: Performed By: #### KAROL MERCHANT ####[facility] Ajjkxqbrmt5038 [place] [phone]. Tadeo Smyth Clarity (U) CLEAR Normal CLEAR The [facility] Comment on above: Performed By: #### SANDRO MERCHANTRO ####[facility] Pgxbwsmtqo[address] [place], [place] [phone]. Tadeo Smyth Color (U) YELLOW Normal YELLOW The [facility] Comment on above: Performed By: #### KAROL MERCHANT ####[facility] Cmyrnzidup[address] [place], [place] [id number]. Tadeo ENG A micrscopic examina tion will be performed if indicated. Normal The [facility] Comment on above: Performed By: #### KAROL MERCHANT ####[facility] Zriopqjfqf5[address] [place] [address]Dr. Tadeo Smyth Glucose Ql (U) Negative Normal NEGATIVE The [facility] Comment on above: Performed By: #### SANDRO MERCHANTRO ####[facility] Ecblrqtqyo9522[address] [place], [place] [address]Dr. Tadeo Smyth Hemoglobin Ql (U) TRACE-LYSED Abnormal NEGATIVE [facility] Comment on above: Performed By: #### SANDRO MERCHANTRO ####[facility] Auqghqkyjc[address] [place], [place] [address]Dr. Tadeo Smyth Ketones Ql (U) TRACE Abnormal NEGATIVE The [facility] Comment on above: Performed By: #### SANDRO MERCHANTRO ####[facility] Ypsxkzsjre[address] [place], [place] [address]Dr. Tadeo Smyth LEUKOCYTES Negative Normal NEGATIVE [facility] Comment on above: Performed By: #### SANDRO MERCHANTRO ####[facility] Ynoubfwsys[address] [place], [place] [address]Dr. Tadeo Smyth Nitrite Ql (U) Negative Normal NEGATIVE The [facility] Comment on above: Performed By: #### SANDRO MERCHANTRO ####[facility] Lypgpzcnex[address] [place], [place] [address]Dr. Tadeo Smyth pH (U) 6.0 [pH] Normal 5-9 The [facility] Comment on above: Performed By: #### SANDRO MERCHANTRO ####[facility] Yljuytepom[address] [place], [place] [address]Dr. Tadeo Smyth SPEC GRAVITY >=1.030 Abnormal 1.005-<=1.0 25 [facility] Comment on above: Performed By: #### SANDRO MERCHANTRO ####[facility] Uymbmmeuxb[address] [place], [place] [address]Dr. Tadeo Smyth UA PROTEIN TRACE Normal NEGATIVE/ TRACE The [facility] Comment on above: Performed By: #### E RANDI FRANCISCOICRO ####[facility] Umdwnijhmq67[address] [place] [address]Dr. Tadeo Smyth UR MICRO IND INDICATED Normal [facility] Comment on above: Performed By: #### E NOLAN, UMICRO ####[facility] Ncvqgxiqif5[address] [place] [address]Dr. Tadeo Smyth Urobilinogen Qn (U) 0.2 {Benito'U}/dL Normal 0.2 - 1. 0 [facility] Comment on above: Performed By: #### Matthew FRANCISCO ICRO ####[facility] Ytblnnycby9[address] [place] [address]Dr. Tadeo Smyth LACTATE/LACTIC ACIDon 2021 Lactate [Moles/Vol] 1.3 mmol/L Normal 0.4-1.9 [facility] Comment on above: Performed By: #### L ACT ####[facility] Pybgpwzqfd[address] [place], [place] [address]Dr. Tadeo Smyth LIPASEon 08-08-2022 Lipase [Catalytic activity/Vol] 120.0 U/L Normal 73.0-393.0 [facility] Comment on above: Performed By: #### C MP, VIJI, LIPA, CMADM ####[facility] Yhylyrbuyu[address] [place] [address]Dr. Tadeo Smyth PROF 14(COMP METB)on 022 Albumin [Mass/Vol] 3.8 g/dL Normal 3.4-5.0 [facility] Comment on above: Performed By: #### C MP, VIJI, LIPA, CMADM ####[facility] Bvogfugyog[address] [place] [address]Dr. Tadeo Smyth Albumin/Globulin [Mass ratio] 1.1 {ratio} Normal [facility] Comment on above: Performed By: #### C MP, VIJI, LIPA, CMADM ####[facility] Vtgulocxda6[address] [place] [address]Dr. Tadeo Smyth ALP [Catalytic activity/Vol] 145 U/L Critically high 46-116 The [facility] Comment on above: Performed By: #### C MP, VIJI, LIPA, CMADM ####[facility] Gjxfavywxp1794 [place] [address]Dr. Tadeo Smyth ALT [Catalytic activity/Vol] 30 U/L Normal 14-59 [facility] Comment on above: Performed By: #### C MP, VIJI, LIPA, CMADM ####[facility] Mgrbdsaizg4538 [place] [address]Dr. Tadeo Smyth Anion gap [Moles/Vol] 11.5 mmol/L Normal Th e [facility] Comment on above: Performed By: #### C MP, VIJI, LIPA, CMADM ####[facility] Tcdvgqapyj[address] [place], [place] [address]Dr. Tadeo Smyth AST [Catalytic activity/Vol] 17 U/L Normal 15-37 [facility] Comment on above: Performed By: #### C MP, VIJI, LIPA, CMADM ####[facility] Hyxcgvgdwh[address] [place], [place] [address]Dr. Tadeo Smyth Bilirubin [Mass/Vol] 0.1 mg/dL Critically low 0.2-1.0 [facility] Comment on above: Performed By: #### C MP, VIJI, LIPA, CMADM ####[facility] Rpgdjnlixe1719 [place] [address]Dr. Tadeo Smyth Calcium [Mass/Vol] 8.9 mg/dL Normal 8.5-10.1 [facility] Comment on above: Performed By: #### C MP, VIJI, LIPA, CMADM ####[facility] Gssoeijocg060[address] [place] [address]Dr. Tadeo Smyth Chloride [Moles/Vol] 104 mmol/L Normal 98-107 The [facility] Comment on above: Performed By: #### C MP, VJII, LIPA, CMADM ####[facility] [address]iulhxbjv18[address] [place] [address]Dr. Tadeo Smyth CO2 [Moles/Vol] 27.2 mmol/L Normal 21.0-32.[address] [facility] Comment on above: Performed By: #### C MP, VIJI, LIPA, CMADM ####[facility] Nzkopjaadr[address] [place] [address]Dr. Tadeo Smyth Creatinine [Mass/Vol] 0.90 mg/dL Normal 0.55-1.02 [facility] Comment on above: Performed By: #### C MP, VIJI, LIPA, CMADM ####[facility] Zkbvattcbp[address] [place] [address]Dr. Tadeo Smyth EGFR-AF [place] >60 Normal >=[address] [facility] Comment on above: Performed By: #### C MP, VIJI, LIPA, CMADM ####[facility] Vufthnriyh[address] [place] [address]Dr. Tadeo Smyth EGFR-NON AF [place] >60 Normal >=60 The [facility] Comment on above: Performed By: #### C MP, VIJI, LIPA, CMADM ####[facility] Zrclwfwfuz[address] [place], [place] [address]Dr. Tadeo Smyth Globulin (S) [Mass/Vol] 3.5 g/dL Normal [facility] Comment on above: Performed By: #### C MP, VIJI, LIPA, CMADM ####[facility] Fyrrwibjsd[address] [place], [place] [address]Dr. Tadeo Smyth Glucose [Mass/Vol] 98 mg/dL Normal 74-106 [facility] Comment on above: Performed By: #### C MP, VIJI, LIPA, CMADM ####[facility] Ehkonzvpbu[address] [place], [place] [address]Dr. Tadeo Smyth Potassium [Moles/Vol] 3.7 mmol/L Normal 3.5-5.1 The [facility] Comment on above: Performed By: #### C MP, VIJI, LIPA, CMADM ####[facility] Otfynfqexm[address] [place], [place] [address]Dr. Tadeo Smyth Protein [Mass/Vol] 7.3 g/dL Normal 6.4-8.2 [facility] Comment on above: Performed By: #### C MP, VIJI, LIPA, CMADM ####[facility] Omnttawyva4[address] [place] [address]Dr. Tadeo Smyth Sodium [Moles/Vol] 139 mmol/L Normal 136-145 [facility] Comment on above: Performed By: #### C JOSE, VIJI, LIPA, CMADM ####[facility] Bhcyaynqgf8616 [place] [address]Dr. Tadeo Smyth Urea nitrogen [Mass/Vol] 25.0 mg/dL Critically high 7.0-18.0 [facility] Comment on above: Performed By: #### C MP, VIJI, LIPA, CMADM ####[facility] Yhqbkyeoxb1046 [place] [address]Dr. Tadeo Smyth Urea nitrogen/Creatinine [Mass ratio] 27.8 mg/mg Normal The [facility] Comment on above: Performed By: #### C JOSE, VIJI, LIPA, CMADM ####[facility] Ykojigrwyl[address] [place] [address]Dr. Tadeo Smyth URINE MICROSCOPIC ONLYon BACTERIA NONE SEEN Normal NONE SEEN [facility] Comment on above: Performed By: #### SANDRO MERCHANTRO ####[facility] Xjaehniiqy[address] [place], [place] [address]Dr. Tadeo Smyth Bacteria identified Cx Nom (U) NOT INDICATED Normal The [facility] Comment on above: Performed By: #### SANDRO MERCHANTRO ####[facility] Cxtvkaqwle[address] [place] [address]Dr. Tadeo Smyth CAST NONE SEEN Normal NONE SEEN The [facility] Comment on above: Performed By: #### SANDRO MERCHANTRO ####[facility] Bhneyrllfh6904 [place] [address]Dr. Tadeo Smyth Crystals LM Nom (Urine sed) NONE SEEN Normal NONE SEEN The [facility] Comment on above: Performed By: #### SANDRO MERCHANTRO ####[facility] Nksosfysze8140 [place] [address]Dr. Tadeo Smyth Epithelial cells LM Ql (Urine sed) FEW Abnormal NONE SEEN /RARE The [facility] Comment on above: Performed By: #### KAROL MERCHANT ####[facility] Ofpsbdejpk1397 [place] [phone]. Tadeo Smyth MUCOUS NONE SEEN Normal NONE SEEN The [facility] Comment on above: Performed By: #### KAROL MERCHANT ####[facility] Eljgoubrzj4359 [place] [phone]. Tadeo Smyth RBC 2-5 Abnormal 0-2 The [facility] Comment on above: Performed By: #### KAROL MERCHANT ####[facility] Eruwtutyfe[address] [place], [place] [address]Dr. Tadeo Smyth WBC NONE SEEN Normal NONE SEEN The [facility] Comment on above: Performed By: #### KAROL MERCHANT ####[facility] Glfasjmhme[address] [place], [place] [address]Dr. Tadeo Smyth AMYLASEon 07-21-2022 Amylase [Catalytic activity/Vol] 49 U/L Normal 25-115 The [facility] Comment on above: Performed By: #### L IPA, VIJI, CMP ####[facility] [address]ps[address]uh[address] [place], [place] [address]Dr. Tadeo Smyth CBC AUTO DIFFon 07-21-2022 BASO # 0.0 103/ul Normal 0.0-0.1 The [facility] Comment on above: Performed By: #### C BC ####[facility] Ghtsjiutdx4402 [place] [address]Dr. Tadeo Smyth Basophils/100 WBC (Bld) 0.6 % Normal 0.2-2.0 The [facility] Comment on above: Performed By: #### C BC ####[facility] Rrpozhifab1629 [place] [address]Dr. Tadeo Smyth EO # 0.2 103/ul Normal 0.0-0.7 The [facility] Comment on above: Performed By: #### C BC ####[facility] Hfkjmrgqed[address] [place], [place] [address]Dr. Tadeo Smyth Eosinophils/100 WBC (Bld) 3.1 % Normal 0.9-7.0 The [facility] Comment on above: Performed By: #### C BC ####[facility] Zquzetlcfv9441 [place] [address]Dr. Tadeo Smyth Erythrocyte distribution width (RBC) [Ratio] 13.2 % Normal 11.0-15.0 [facility] Comment on above: Performed By: #### C BC ####[facility] Xxuqyvhtwb6166 [place] [address]Dr. Tadeo Smyth Hematocrit (Bld) [Volume fraction] 35.7 % Critically low 36.0-48.0 [facility] Comment on above: Performed By: #### C BC ####[facility] Pvyxrdbwps[address] [place], [place] [address]Dr. Tadeo Smyth Hemoglobin (Bld) [Mass/Vol] 11.6 g/dL Critically low 12.0-16.0 [facility] Comment on above: Performed By: #### C BC ####[facility] Qlsqcujuix[address] [place], [place] [address]Dr. Tadeo Smtyh IG # 0.01 10e3/ul Normal 0.00-0.03 The [facility] Comment on above: Performed By: #### C BC ####[facility] Gqrpnayvnc[address] [place], [place] [address]Dr. Tadeo Smyth IG % 0.2 % Normal 0.0-0.5 [facility] Comment on above: Performed By: #### C BC ####[facility] Antvyqjpin[address] [place], [place] [address]Dr. Tadeo Smyth LYMPH # 1.9 103/ul Normal 1.2-3.8 The [facility] Comment on above: Performed By: #### C BC ####[facility] Egfblquahj[address] [place], [place] [address]Dr. Tadeo Smyth Lymphocytes/100 WBC (Bld) 34.8 % Normal 20.5-60.0 The [facility] Comment on above: Performed By: #### C BC ####[facility] Xaapeydmdg92[address] [place], [place] [address]Dr. Tadeo Smyth MANUAL DIFF REQ NO Normal [facility] Comment on above: Performed By: #### C BC ####[facility] Dhrxbaammb7962 [place] [phone]. Tadeo Haja MCH (RBC) [Entitic mass] 29.1 pg Normal 26.7-34.0 The [facility] Comment on above: Performed By: #### C BC ####[facility] Mwrkmcwslj3776 [place] [phone]. Tadeo Smyth MCHC (RBC) [Mass/Vol] 32.5 g/dL Normal 29.9-35.2 The [facility] Comment on above: Performed By: #### C BC ####[facility] Slamgyutms0947 [place] [phone]. Tadeo Haja MCV (RBC) [Entitic vol] 89.7 fL Normal 81.0-99.0 The [facility] Comment on above: Performed By: #### C BC ####[facility] Hxvirfrfup[address] [place], [place] [address]Dr. Tadeo Smyth MONO # 0.3 103/ul Normal 0.3-0.8 The [facility] Comment on above: Performed By: #### C BC ####[facility] Lmtgqthaol4892 [place] [address]Dr. Tadeo Smyth Monocytes/100 WBC (Bld) 6.1 % Normal 1.7-12.0 The [facility] Comment on above: Performed By: #### C BC ####[facility] Humoizyngw[address] [place], [place] [address]Dr. Margotnicole Smyth NEUT # 3.0 103/ul Normal 1.4-6.5 The [facility] Comment on above: Performed By: #### C BC ####[facility] Kirzdqhwjj[address] [place], [place] [address]Dr. Tadeo Smyth Neutrophils/100 WBC (Bld) 55.2 % Normal 43.0-75.0 The [facility] Comment on above: Performed By: #### C BC ####[facility] Xpswtjirep[address] [place], [place] [address]Dr. Tadeo Smyth Platelet mean volume (Bld) [Entitic vol] 9.0 fL Critically low 9.5-13.5 The [facility] Comment on above: Performed By: #### C BC ####[facility] Upkvggujfd0617 [place] [phone]. Tadeo Smyth PLT 358 103/ul Normal 150-450 [facility] Comment on above: Performed By: #### C BC ####[facility] Wwigigtuvl5373 [place] [phone]. Tadeo Smyth RBC 3.98 106/ul Critically low 4.20-5.40 [facility] Comment on above: Performed By: #### C BC ####[facility] Twfmbhwhxl6669 [place] [phone]. Tadeo Haja WBC 5.4 103/ul Normal 4.0-11.0 The [facility] Comment on above: Performed By: #### C BC ####[facility] Vjmcthlkue3517 [place] [address]Dr. Tadeo Smyth LIPASEon 07-21-2022 Lipase [Catalytic activity/Vol] 54.0 U/L Critically low 73.0-393.0 [facility] Comment on above: Performed By: #### L VIJI HALL, CMP ####[facility] [address]vebcxshl[address] [place], [place] [address]Dr. Tadeo Smyth PROF 14(COMP METB)on 022 Albumin [Mass/Vol] 3.5 g/dL Normal 3.4-5.0 [facility] Comment on above: Performed By: #### L ISABEL VIJI, CMP ####[facility] Efapjxbxri8380 [place] [address]Dr. Tadeo Smyth Albumin/Globulin [Mass ratio] 0.9 {ratio} Normal [facility] Comment on above: Performed By: #### L IPA VIJI, CMP ####[facility] Nsedjtyycw8553 [place] [address]Dr. Tadeo Smyth ALP [Catalytic activity/Vol] 127 U/L Critically high 46-116 The [facility] Comment on above: Performed By: #### L IPA VIJI, CMP ####[facility] Hkduogkqyd4322 [place] [address]Dr. Tadeo Smyth ALT [Catalytic activity/Vol] 16 U/L Normal 14-59 [facility] Comment on above: Performed By: #### L VIJI HALL, CMP ####[facility] Diasnledts1066 [place] [address]Dr. Tadeo Smyth Anion gap [Moles/Vol] 10.6 mmol/L Normal Th e [facility] Comment on above: Performed By: #### L VIJI HALL, CMP ####[facility] Ngnfduklio[address] [place], [place] [address]Dr. Tadeo Smyth AST [Catalytic activity/Vol] 16 U/L Normal 15-37 [facility] Comment on above: Performed By: #### L VIJI HALL, CMP ####[facility] Yymtsfmvhn[address] [place], [place] [address]Dr. Tadeo Smyth Bilirubin [Mass/Vol] 0.3 mg/dL Normal 0.2-1.0 [facility] Comment on above: Performed By: #### L VIJI HALL, CMP ####[facility] Uwcoydvwqg[address] [place], [place] [address]Dr. Tadeo Smyth Calcium [Mass/Vol] 9.1 mg/dL Normal 8.5-10.1 [facility] Comment on above: Performed By: #### L VIJI HALL, CMP ####[facility] Ncbvrhfsly[address] [place], [place] [address]Dr. Tadeo Smyth Chloride [Moles/Vol] 104 mmol/L Normal 98-107 [facility] Comment on above: Performed By: #### L VIJI HALL, CMP ####[facility] Fcmxoxwbft[address] [place], [place] [address]Dr. Tadeo Smyth CO2 [Moles/Vol] 28.0 mmol/L Normal 21.0-32.[address] [facility] Comment on above: Performed By: #### L VIJI HALL, CMP ####[facility] Xmgxohwgwq[address] [place], [place] [address]Dr. Tadeo Smyth Creatinine [Mass/Vol] 0.96 mg/dL Normal 0.55-1.02 [facility] Comment on above: Performed By: #### L VIJI HALL, CMP ####[facility] Vupmnulhgx6835 [place] [id number]. Margotlan Smyth EGFR-AF [place] >60 Normal >=[address] [facility] Comment on above: Performed By: #### L VIJI HALL, CMP ####[facility] Vcwvqfjqtu[address] [place] [address]Dr. Margotlan Smyth EGFR-NON AF [place] >60 Normal >=60 [facility] Comment on above: Performed By: #### L VIJI HALL, CMP ####[facility] Yprrdcskca6[address] [place] [address]Dr. Tadeo Smyth Globulin (S) [Mass/Vol] 3.8 g/dL Normal [facility] Comment on above: Performed By: #### L VIJI HALL, CMP ####[facility] Nkdmwmusqb6582 [place] [address]Dr. Tadeo Smyth Glucose [Mass/Vol] 93 mg/dL Normal 74-106 [facility] Comment on above: Performed By: #### L VIJI HALL, CMP ####[facility] Abnfhwyusg[address] [place], [place] [address]Dr. Tadeo Smyth Potassium [Moles/Vol] 3.6 mmol/L Normal 3.5-5.1 [facility] Comment on above: Performed By: #### L VIJI HLAL, CMP ####[facility] Vunhjknsbe23[address] [place] [address]Dr. Margotlan Smyth Protein [Mass/Vol] 7.3 g/dL Normal 6.4-8.2 [facility] Comment on above: Performed By: #### L VIJI HALL, CMP ####[facility] Vbwgnkfvpy8371 [place] [address]Dr. Margotlan Smyth Sodium [Moles/Vol] 139 mmol/L Normal 136-145 [facility] Comment on above: Performed By: #### L VIJI HALL, CMP ####[facility] Wgfmsedkqp4233 [place] [address]Dr. Tadeo Smyth Urea nitrogen [Mass/Vol] 16.0 mg/dL Normal 7.0-18.0 [facility] Comment on above: Performed By: #### L VIJI HALL, CMP ####[facility] Wpklobrchq25[address] [place] [address]Dr. Tadeo Smyth Urea nitrogen/Creatinine [Mass ratio] 16.7 mg/mg Normal The [facility] Comment on above: Performed By: #### L ISABEL, VIJI, CMP ####[facility] Oohxtpfxpn1594 [place] [address]Dr. Tadeo Smyth XR ABD FLAT UP_PA Kasey 07-21 XR ABD FLAT UP_PA CH Normal The [facility] CULTURE URINEon 07-10-2022 CULTURE URINE Normal [facility] Comment on above: Performed By: #### U RCX ####[facility] Dkdhukwakq9[address] [place], [place] [address]Dr. Tadeo Smyth INSULINon 07-09-2022 Insulin 15.9 uIU/mL Normal 2.6-24.9 [facility] Comment on above: Performed By: #### I NSULIN ####[facility] Bphbcvspes[address] [place], [place] [address]Dr. Tadeo Smyth CBC AUTO DIFFon 07-08-2022 BASO # 0.0 103/ul Normal 0.0-0.1 [facility] Comment on above: Performed By: #### C BC ####[facility] Eokuombpcl3199 [place] [address]Dr. Tadeo Smyth Basophils/100 WBC (Bld) 0.6 % Normal 0.2-2.0 [facility] Comment on above: Performed By: #### C BC ####[facility] Uuryfmltdg1074 [place] [address]Dr. Tadeo Smyth EO # 0.2 103/ul Normal 0.0-0.7 [facility] Comment on above: Performed By: #### C BC ####[facility] Ydnrrytrjj[address] [place], [place] [address]Dr. Tadeo Smyth Eosinophils/100 WBC (Bld) 3.4 % Normal 0.9-7.0 [facility] Comment on above: Performed By: #### C BC ####[facility] Yxagcxurhq13[address] [place], [place] [address]Dr. Tadeo Smyth Erythrocyte distribution width (RBC) [Ratio] 13.1 % Normal 11.0-15.0 [facility] Comment on above: Performed By: #### C BC ####[facility] Lfjasdbwqx96[address] [place], [place] [address]Dr. Tadeo Smyth Hematocrit (Bld) [Volume fraction] 42.4 % Normal 36.0-48.0 [facility] Comment on above: Performed By: #### C BC ####[facility] Bsgmnrdblb[address] [place], [place] [address]Dr. Tadeo Smyth Hemoglobin (Bld) [Mass/Vol] 13.7 g/dL Normal 12.0-16.0 [facility] Comment on above: Performed By: #### C BC ####[facility] Ygqtntkyht[address] [place], [place] [address]Dr. Tadeo Smyth IG # 0.01 10e3/ul Normal 0.00-0.03 [facility] Comment on above: Performed By: #### C BC ####[facility] Jdkuzkooll[address] [place], [place] [address]Dr. Tadeo Haja IG % 0.2 % Normal 0.0-0.5 [facility] Comment on above: Performed By: #### C BC ####[facility] Ezqeuerfnr[address] [place], [place] [address]Dr. Tadeo Haja LYMPH # 2.1 103/ul Normal 1.2-3.8 [facility] Comment on above: Performed By: #### C BC ####[facility] Gjdwqapupv[address] [place], [place] [address]Dr. Margotnicole Smyth Lymphocytes/100 WBC (Bld) 41.2 % Normal 20.5-60.0 [facility] Comment on above: Performed By: #### C BC ####[facility] Uvzodflujr[address] [place], [place] [address]Dr. Margotnicole Smyth MANUAL DIFF REQ NO Normal The [facility] Comment on above: Performed By: #### C BC ####[facility] Wzhxtuhesu34[address] [place], [place] [address]Dr. Tadeo Smyth MCH (RBC) [Entitic mass] 28.8 pg Normal 26.7-34.0 [facility] Comment on above: Performed By: #### C BC ####[facility] Fyeyihmizo20[address] [place] [address]Dr. Tadeo Smyth MCHC (RBC) [Mass/Vol] 32.3 g/dL Normal 29.9-35.2 [facility] Comment on above: Performed By: #### C BC ####[facility] Zjyxctcwdb6877 [place] [address]Dr. Tadeo Haja MCV (RBC) [Entitic vol] 89.3 fL Normal 81.0-99.0 [facility] Comment on above: Performed By: #### C BC ####[facility] Cydwfjsggg5148 [place] [address]Dr. Tadeo Haja MONO # 0.4 103/ul Normal 0.3-0.8 [facility] Comment on above: Performed By: #### C BC ####[facility] Hhejxluaog9584 [place] [address]Dr. Margotnicole Smyth Monocytes/100 WBC (Bld) 8.1 % Normal 1.7-12.0 [facility] Comment on above: Performed By: #### C BC ####[facility] Ixnsfjbcle[address] [place], [place] [address]Dr. Tadeo Smyth NEUT # 2.4 103/ul Normal 1.4-6.5 [facility] Comment on above: Performed By: #### C BC ####[facility] Lsxdptaiuy1425 [place] [address]Dr. Margotnicole Smyth Neutrophils/100 WBC (Bld) 46.5 % Normal 43.0-75.0 [facility] Comment on above: Performed By: #### C BC ####[facility] Ngjxhfqocc6714 [place] [address]Dr. Tadeo Haja Platelet mean volume (Bld) [Entitic vol] 9.3 fL Critically low 9.5-13.5 [facility] Comment on above: Performed By: #### C BC ####[facility] [address]24[address] [place], [place] [address]Iq. Tadeo Smyth PLT 443 103/ul Normal 150-450 [facility] Comment on above: Performed By: #### C BC ####[facility] Zey[address]spzsli7538 [place], [place] [address]Xk. Tadeo Smyth RBC 4.75 106/ul Normal 4.20-5.40 [facility] Comment on above: Performed By: #### C BC ####[facility] Iinttbleax[address]132 [place] [phone]. Tadeo Smyth WBC 5.1 103/ul Normal 4.0-11.0 [facility] Comment on above: Performed By: #### C BC ####[facility] Akiilsmbjs2296 [place] [phone]. Tadeo Smyth FREE THYROXINE INDEX T7on FTI 2.91 Normal 1.30-4.50 [facility] Comment on above: Performed By: #### T 7, LIPID, TSH, CMP ####[facility] Kaftfefxxa1541 [place] [phone]. Tadeo Smyth T3U 31.0 % Normal 30.0-39.0 [facility] Comment on above: Performed By: #### T 7, LIPID, TSH, CMP ####[facility] Gswhfxkvyj9968 [place] [phone]. Tadeo Smyth T4 [Mass/Vol] 9.40 ug/dL Normal 4.80-13.90 [facility] Comment on above: Performed By: #### T 7, LIPID, TSH, CMP ####[facility] Kbzjgpbspa6645 [place] [phone]. Tadeo Smyth GLYCOHEMOGLOBIN A1Con 2021 ADA RECOMMENDATION SEE BELOW Normal [facility] Comment on above: Result Comment: ADA RECOMMENDED LIMIT 4.0 - 6.0 ADA THERAPEUTIC TARGET < 7.0 ACTION SUGGESTED > 7.0 Performed By: #### A 1C ####[facility] Slzpsbmqzf80[address] [place] [address]Dr. Tadeo Smyth Glucose [Mass/Vol] 120 mg/dL Normal [facility] Comment on above: Performed By: #### A 1C ####[facility] Aegyclaieo7743 [place] [phone]. Tadeo Smyth HbA1c (Bld) [Mass fraction] 5.8 % Normal 4.5-6.2 [facility] Comment on above: Performed By: #### A 1C ####[facility] Fxuhoacpju4383 [place] [phone]. Tadeo Smyth IRONon 07-08-2022 Iron [Mass/Vol] 59.0 ug/dL Normal 50.0-170.0 [facility] Comment on above: Performed By: #### I KEEGAN ####[facility] Jnhyevcrxe9669 [place] [phone]. Tadeo Smyth LIPID PROFILEon 07-08-2022 CHOL-HDL RATIO NORM SEE BELOW Normal [facility] Comment on above: Result Comment: 3.3 - 4.4 LOW RISK 4.4 - 7.1 AVERAGE RISK 7.1 - 11.0 MODERATE RISK >11.0 HIGH RISK Performed By: #### T 7, LIPID, TSH, CMP ####[facility] Giumkvuqyc0226 [place] [phone]. Tadeo Smyth Cholesterol [Mass/Vol] 227 mg/dL Critically high <=200 [facility] Comment on above: Performed By: #### T 7, LIPID, TSH, CMP ####[facility] Dutagwtpnr3673 [place] [phone]. Tadeo Smyth Cholesterol in HDL [Mass/Vol] 67 mg/dL Critically high 40-60 [facility] Comment on above: Performed By: #### T 7, LIPID, TSH, CMP ####[facility] Mbiipmtsff4169 [place] [phone]. Tadeo Smyth Cholesterol in LDL [Mass/Vol] 139.0 mg/dL Normal [facility] Comment on above: Performed By: #### T 7, LIPID, TSH, CMP ####[facility] Pwczozheps9508 [place] [phone]. Tadeo Haja Cholesterol.total/Cho lesterol in HDL [Mass ratio] 3.4 {ratio} Normal [facility] Comment on above: Performed By: #### T 7, LIPID, TSH, CMP ####[facility] Fendupzdxj47[address] [place] [address]Dr. Tadeo Smyth HDL NORMAL > or = 60 mg/dl - LO W CARDIOVASCULAR RISK <40 mg/dl - HIGH CARDIOVASCULAR RISK Normal [facility] Comment on above: Performed By: #### T 7, LIPID, TSH, CMP ####[facility] Rniqrciplh1166 [place] [address]Dr. Tadeo Smyth LDL CALC NORMAL SEE BELOW Normal [facility] Comment on above: Result Comment: <100 mg/dl OPTIMAL 100 - 129 mg/dl NEAR OR ABOVE OPTIMAL 130 - 159 mg/dl BORDERLINE HIGH 160 - 189 mg/dl HIGH >190 mg/dl VERY HIGH Performed By: #### T 7, LIPID, TSH, CMP ####[facility] Yjilyvnkpc[address] [place] [address]Dr. Tadeo Smyth Triglyceride [Mass/Vol] 105 mg/dL Normal <=150 [facility] Comment on above: Performed By: #### T 7, LIPID, TSH, CMP ####[facility] Pzujunwekm8496 [place] [address]Dr. Tadeo Smyth VLDL CALC 21.0 mg/dL Normal The [facility] Comment on above: Performed By: #### T 7, LIPID, TSH, CMP ####[facility] Dtjhecarwc6233 [place] [phone]. Tadeo Smyth OCC BLD IMMUNO SCREENon OCCULT BLOOD Negative Normal NEGATIVE [facility] Comment on above: Performed By: #### O BSCRN ####[facility] Iozflrcqql9649 [place] [address]Dr. Tadeo Smyth PROF 14(COMP METB)on 022 Albumin [Mass/Vol] 3.7 g/dL Normal 3.4-5.0 [facility] Comment on above: Performed By: #### T 7, LIPID, TSH, CMP ####[facility] Xxanypfxrv4933 [place] [address]Dr. Tadeo Smyth Albumin/Globulin [Mass ratio] 0.8 {ratio} Normal [facility] Comment on above: Performed By: #### T 7, LIPID, TSH, CMP ####[facility] Btljdbwgee7835 [place] [address]Dr. Tadeo Smyth ALP [Catalytic activity/Vol] 141 U/L Critically high 46-116 [facility] Comment on above: Performed By: #### T 7, LIPID, TSH, CMP ####[facility] Uftlacmhdh[address] [place], [place] [address]Dr. Tadeo Smyth ALT [Catalytic activity/Vol] 23 U/L Normal 14-59 [facility] Comment on above: Performed By: #### T 7, LIPID, TSH, CMP ####[facility] Eskekiwqcv[address] [place], [place] [address]Dr. Tadeo Smyth Anion gap [Moles/Vol] 9.8 mmol/L Normal [facility] Comment on above: Performed By: #### T 7, LIPID, TSH, CMP ####[facility] Eivhkwayfy[address] [place], [place] [address]Dr. Tadeo Smyth AST [Catalytic activity/Vol] 13 U/L Critically low 15-37 [facility] Comment on above: Performed By: #### T 7, LIPID, TSH, CMP ####[facility] Hisvfcfpbu[address] [place], [place] [address]Dr. Tadeo Smyth Bilirubin [Mass/Vol] 0.4 mg/dL Normal 0.2-1.0 [facility] Comment on above: Performed By: #### T 7, LIPID, TSH, CMP ####[facility] Ssvmktqxhe[address] [place], [place] [address]Dr. Tadeo Smyth Calcium [Mass/Vol] 10.2 mg/dL Critically high 8.5-10.1 [facility] Comment on above: Performed By: #### T 7, LIPID, TSH, CMP ####[facility] Obxnutvzsx[address] [place], [place] [address]Dr. Margotnicole Smyth Chloride [Moles/Vol] 101 mmol/L Normal 98-107 [facility] Comment on above: Performed By: #### T 7, LIPID, TSH, CMP ####[facility] Mpaduxipdw2686 [place] [address]Dr. Tadeo Smyth CO2 [Moles/Vol] 32.8 mmol/L Critically high 21.0-32.0 [facility] Comment on above: Performed By: #### T 7, LIPID, TSH, CMP ####[facility] Ouvogodfvh1685 [place] [address]Dr. Tadeo Smyth Creatinine [Mass/Vol] 0.92 mg/dL Normal 0.55-1.02 [facility] Comment on above: Performed By: #### T 7, LIPID, TSH, CMP ####[facility] Chzqmbxlal[address] [place], [place] [address]Dr. Tadeo Smyth EGFR-AF [place] >60 Normal >=60 [facility] Comment on above: Performed By: #### T 7, LIPID, TSH, CMP ####[facility] Yamfwycgon[address] [place], [place] [address]Dr. Tadeo Smyth EGFR-NON AF [place] >60 Normal >=60 [facility] Comment on above: Performed By: #### T 7, LIPID, TSH, CMP ####[facility] S[address]qqhftl[address] [place], [place] [address]Dr. Tadeo Smyth Globulin (S) [Mass/Vol] 4.8 g/dL Normal [facility] Comment on above: Performed By: #### T 7, LIPID, TSH, CMP ####[facility] [address]zqjubddy[address] [place], [place] [address]Dr. Tadeo Smyth Glucose [Mass/Vol] 114 mg/dL Critically high 74-106 [facility] Comment on above: Performed By: #### T 7, LIPID, TSH, CMP ####[facility] Quzwxdfqqk[address] [place], [place] [address]Dr. Tadeo Smyth Potassium [Moles/Vol] 3.6 mmol/L Normal 3.5-5.1 [facility] Comment on above: Performed By: #### T 7, LIPID, TSH, CMP ####[facility] Betgcaeaxs[address] [place], [place] [address]Dr. Tadeo Smyth Protein [Mass/Vol] 8.5 g/dL Critically high 6.4-8.2 [facility] Comment on above: Performed By: #### T 7, LIPID, TSH, CMP ####[facility] Srjqqzslcq3794 [place] [address]Dr. Tadeo Smyth Sodium [Moles/Vol] 140 mmol/L Normal 136-145 [facility] Comment on above: Performed By: #### T 7, LIPID, TSH, CMP ####[facility] Bzunyxwfbo9114 [place] [address]Dr. Tadeo Smyth Urea nitrogen [Mass/Vol] 23.0 mg/dL Critically high 7.0-18.0 [facility] Comment on above: Performed By: #### T 7, LIPID, TSH, CMP ####[facility] Gxsujjnaxw7480 [place] [address]Dr. Tadeo Smyth Urea nitrogen/Creatinine [Mass ratio] 25.0 mg/mg Normal [facility] Comment on above: Performed By: #### T 7, LIPID, TSH, CMP ####[facility] Rmfupuqwoy8412 [place] [address]Dr. Tadeo Smyth TSHon 07-08-2022 TSH 3.748 uIU/mL Critically high 0.358-3.740 [facility] Comment on above: Performed By: #### T 7, LIPID, TSH, CMP ####[facility] Obcijkzmvq9719 [place] [address]Dr. Tadeo Smyth UA RANDOM W/MICROSCOPICon BACTERIA TRACE Abnormal NONE SEEN [facility] Comment on above: Performed By: #### U AMIC ####[facility] Ytoagevtwf8236 [place] [address]Dr. Tadeo Smyth Bilirubin Ql (U) Negative Normal NEGATIVE [facility] Comment on above: Performed By: #### U AMIC ####[facility] Riydkxixvi0290 [place] [address]Dr. Tadeo Smyth CAST NONE SEEN Normal NONE SEEN [facility] Comment on above: Performed By: #### U AMIC ####[facility] Aypbpxtfce8615 [place] [address]Dr. Tadeo Smyth Clarity (U) CLEAR Normal CLEAR [facility] Comment on above: Performed By: #### U AMIC ####[facility] Rzpnxemric[address] [place], [place] [address]Dr. Tadeo Smyth Color (U) YELLOW Normal YELLOW [facility] Comment on above: Performed By: #### U AMIC ####[facility] Yefnypvpxi3560 [place] [address]Dr. Tadeo Smyth Crystals LM Nom (Urine sed) NONE SEEN Normal NONE SEEN [facility] Comment on above: Performed By: #### U AMIC ####[facility] G[address]jstbqsz[address] [place], [place] [address]Dr. Tadeo Smyth Epithelial cells LM Ql (Urine sed) FEW Abnormal NONE SEEN /RARE [facility] Comment on above: Performed By: #### U AMIC ####[facility] Aqxskpdbvv[address] [place], [place] [address]Dr. Tadeo Smyth Glucose Ql (U) Negative Normal NEGATIVE The [facility] Comment on above: Performed By: #### U AMIC ####[facility] Gkfuvsrmfp[address] [place], [place] [address]Dr. Tadeo Smyth Hemoglobin Ql (U) SMALL Abnormal NEGATIVE [facility] Comment on above: Performed By: #### U AMIC ####[facility] Engabdsdfa[address] [place], [place] [address]Dr. Tadeo Smyth Ketones Ql (U) TRACE Abnormal NEGATIVE The [facility] Comment on above: Performed By: #### U AMIC ####[facility] Tsfogxuvgn[address] [place], [place] [address]Dr. Tadeo Smyth LEUKOCYTES TRACE Abnormal NEGATIVE [facility] Comment on above: Performed By: #### U AMIC ####[facility] Nqiwpcbjou[address] [place], [place] [address]Dr. Tadeo Smyth MUCOUS NONE SEEN Normal NONE SEEN [facility] Comment on above: Performed By: #### U AMIC ####[facility] Vfqzuqucpi[address] [place], [place] [address]Dr. Tadeo Smyth Nitrite Ql (U) Negative Normal NEGATIVE The [facility] Comment on above: Performed By: #### U AMIC ####[facility] Wzxjjyimcx0574 [place] [phone]. Tadeo Smyth pH (U) 6.5 [pH] Normal 5-9 [facility] Comment on above: Performed By: #### U AMIC ####[facility] Uduqzoknlz1561 [place] [phone]. Tadeo Smyth RBC 5-10 Abnormal 0-2 [facility] Comment on above: Performed By: #### U AMIC ####[facility] Hptnhhdlgq2546 [place] [phone]. Tadeo Smyth SPEC GRAVITY 1.020 Normal 1.005-<=1.0 25 [facility] Comment on above: Performed By: #### U AMIC ####[facility] Irnlimlctk1924 [place] [address]Dr. Tadeo Smyth UA PROTEIN 30 mg/dl Abnormal NEGATIVE/ TRACE [facility] Comment on above: Performed By: #### U AMIC ####[facility] Sfhfsocrke9570 [place] [phone]. Tadeo Smyth Urobilinogen Qn (U) 0.2 {Benito'U}/dL Normal 0.2 - 1. 0 [facility] Comment on above: Performed By: #### U AMIC ####[facility] Ltehoyraao6456 [place] [address]Dr. Tadeo Smyth WBC 2-5 Abnormal NONE SEEN [facility] [facility] Comment on above: Performed By: #### U AMIC ####[facility] [address] [place] [id number]. Tadeo Smyth Covid-19 PCR ([facility])on 06-07 SARS-CoV-2 (COVID-19) RNA CHEN+probe Ql (Unsp spec) Not detected Normal NOT DETECTED The [facility] Comment on above: Result Comment: When [...] for this test is supported by the [place] of Health and Human Service's declaration that [...] be used). Performed By: #### C VDTBH ####[facility] [address]skqvzxq[address] [place], [place] [address]Dr. Tadeo Smyth CULTURE URINEon 06-09-2022 CULTURE URINE Normal The [facility] Comment on above: Performed By: #### U RCX ####[facility] Glnsybosks[address] [place], [place] [address]Dr. Tadeo Smyth GI PANEL (PCR)on 06-07-2022 Adenovirus F 40/41 Not detected Normal NOT DETECTED The [facility] Comment on above: Performed By: #### G IPANEL ####[facility] Hqkuzyrnln[address] [place], [place] [address]Dr. Tadeo Smyth Astrovirus Not detected Normal NOT DETECTED The [facility] Comment on above: Performed By: #### G IPANEL ####[facility] Ehlnxirtnj[address] [place], [place] [address]Dr. Tadeo Smyth C. Diff toxin A/B Not detected Normal NOT DETECTED The [facility] Comment on above: Performed By: #### G IPANEL ####[facility] Trowwlwobv128[address] [place], [place] [address]Dr. Tadeo Smyth Campylobacter Not detected Normal NOT DETECTED The [facility] Comment on above: Performed By: #### G IPANEL ####[facility] Ifxlazzgzt0789[address] [place], [place] [address]Dr. Tadeo Smyth Cryptosporidium Not detected Normal NOT DETECTED The [facility] Comment on above: Performed By: #### G IPANEL ####[facility] Ouxeofelos[address] [place] [phone]. Margotnicole Smyth Cyclos. Cayetanensis Not detected Normal NOT DETECTED The [facility] Comment on above: Performed By: #### G IPANEL ####[facility] Ryachdmrwf1299[address] [place], [place] [address]Dr. Tadeo Smyth E. Coli O157 Not Applicable Normal Not Applicable The [facility] Comment on above: Performed By: #### G IPANEL ####[facility] Ezaiftubfi01[address] [place], [place] [address]Dr. Tadeo Smyth E. histolytica Not detected Normal NOT DETECTED The [facility] Comment on above: Performed By: #### G IPANEL ####[facility] Aoquoloavq350[address] [place], [place] [address]Dr. Tadeo Smyth EAEC Not detected Normal NOT DETECTED The [facility] Comment on above: Performed By: #### G IPANEL ####[facility] Rjflsibljc205[address] [place], [place] [address]Dr. Tadeo Smyth EIEC Not detected Normal NOT DETECTED The [facility] Comment on above: Performed By: #### G IPANEL ####[facility] Moxgcvyzmw78[address] [place], [place] [address]Dr. Tadeo Smyth EPEC Not detected Normal NOT DETECTED The [facility] Comment on above: Performed By: #### G IPANEL ####[facility] Symnhgcjmj8125[address] [place], [place] [address]Dr. Tadeo Smyth ETEC Not detected Normal NOT DETECTED The [facility] Comment on above: Performed By: #### G IPANEL ####[facility] Ojfnpvmxfu25[address] [place], [place] [address]Dr. Tadeo Smyth G. Lamblia Not detected Normal NOT DETECTED The [facility] Comment on above: Performed By: #### G IPANEL ####[facility] Mxfjyqzmxb06[address] [place], [place] [address]Dr. Tadeo Smyth GIPANEL CONTROLS PASSED Normal The [facility] Comment on above: Performed By: #### G IPANEL ####[facility] Thtsqnbpci34[address] [place], [place] [address]Dr. Tadeo [facility] PANEL BACTERIA Normal T [facility] Comment on above: Performed By: #### G IPANEL ####[facility] Fmqeohskhj[address] [place], [place] [address]Dr. Tadeo BANEGAS ECOLI GI PANEL DIARRHEAGEN IC E.COLI / SHIGELLA Normal The [facility] Comment on above: Performed By: #### G IPANEL ####[facility] Perwshbgds876[address] [place], [place] [address]Dr. Tadeo MEZAATRI[facility] INFO SEE BELOW Normal [facility] Comment on above: Result Comment: EAEC - Enteroaggregative E. Coli EPEC- Enteropathogenic E. Coli ETEC- Enterotoxigenic E. Coli lt/st STEC- Shigella-like toxin-producing E. Coli stx1/stx2 EIEC- Shigella/Enteroinvasive E. Coli Performed By: #### G IPANEL ####[facility] Emrfrdmhlv684[address] [place], [place] [address]Dr. Tadeo BANEGAS PARASITES GI PANEL PARASITES Normal The [facility] Comment on above: Performed By: #### G IPANEL ####[facility] Tmzopyvygb6560[address] [place], [place] [address]Dr. Tadeo BANEGAS VIRUS GI PANEL VIRUSES Normal [facility] Comment on above: Performed By: #### G IPANEL ####[facility] Ostgfjyqpg224[address] [place], [place] [address]Dr. Tadeo Smyth Norovirus GI/GII Not detected Normal NOT DETECTED The [facility] Comment on above: Performed By: #### G IPANEL ####[facility] Pzscwursqq00[address] [place], [place] [address]Dr. Tadeo Smyth P. Shigelloides Not detected Normal NOT DETECTED The [facility] Comment on above: Performed By: #### G IPANEL ####[facility] Bvyavqwogg[address] [place], [place] [address]Dr. Tadeo Smyth Rotavirus A Not detected Normal NOT DETECTED The [facility] Comment on above: Performed By: #### G IPANEL ####[facility] Usmtmonyem13[address] [place], [place] [address]Dr. Tadeo Smyth Salmonella Not detected Normal NOT DETECTED The [facility] Comment on above: Performed By: #### G IPANEL ####[facility] Pdmyaljpwo[address] [place], [place] [address]Dr. Tadeo Smyth Sapovirus Not detected Normal NOT DETECTED The [facility] Comment on above: Performed By: #### G IPANEL ####[facility] Zhafqxzhnd259[address] [place], [place] [address]Dr. Tadeo Smyth STEC Not detected Normal NOT DETECTED The [facility] Comment on above: Performed By: #### G IPANEL ####[facility] Lyioijnwaw3564[address] [place], [place] [address]Dr. Tadeo Smyth Vibrio Not detected Normal NOT DETECTED The [facility] Comment on above: Performed By: #### G IPANEL ####[facility] Cwitgvwvww[address] [place], [place] [address]Dr. Tadeo Smyth Vibrio Cholera Not detected Normal NOT DETECTED The [facility] Comment on above: Performed By: #### G IPANEL ####[facility] Wzgvjrkwow[address] [place], [place] [address]Dr. Tadeo Smyth Y. Enterocolitica Not detected Normal NOT DETECTED The [facility] Comment on above: Performed By: #### G IPANEL ####[facility] Owfzjckipi7232[address] [place], [place] [address]Dr. Tadeo Smyth AMYLASEon 06-06-2022 Amylase [Catalytic activity/Vol] 61 U/L Normal 25-115 The [facility] Comment on above: Performed By: #### A MY, LIPA ####[facility] Qdxmmlqngc[address] [place], [place] [address]Dr. Tadeo Smyth CBC AUTO DIFFon 06-06-2022 BASO # 0.0 103/ul Normal 0.0-0.1 The [facility] Comment on above: Performed By: #### C BC ####[facility] Llehzhugae[address] [place], [place] [address]Dr. Tadeo Smyth Basophils/100 WBC (Bld) 0.5 % Normal 0.2-2.0 The [facility] Comment on above: Performed By: #### C BC ####[facility] X[address]okhi[address] [place] [phone]. Tadeo Smyth EO # 0.2 103/ul Normal 0.0-0.7 [facility] Comment on above: Performed By: #### C BC ####[facility] Vusfklepfi32[address] [place] [phone]. Tadeo Smyth Eosinophils/100 WBC (Bld) 3.4 % Normal 0.9-7.0 The [facility] Comment on above: Performed By: #### C BC ####[facility] Eljwztlewo54[address] [place], [place] [address]Dr. Tadeo Smyth Erythrocyte distribution width (RBC) [Ratio] 13.2 % Normal 11.0-15.0 The [facility] Comment on above: Performed By: #### C BC ####[facility] Cliqpwknjl178[address] [place], [place] [address]Dr. Tadeo Smyth Hematocrit (Bld) [Volume fraction] 38.3 % Normal 36.0-48.0 The [facility] Comment on above: Performed By: #### C BC ####[facility] Dwfpwsdgyn[address] [place], [place] [address]Dr. Tadeo Smyth Hemoglobin (Bld) [Mass/Vol] 12.0 g/dL Normal 12.0-16.0 The [facility] Comment on above: Performed By: #### C BC ####[facility] Maqizipgup[address] [place], [place] [address]Dr. Tadeo Smyth IG # 0.01 10e3/ul Normal 0.00-0.03 The [facility] Comment on above: Performed By: #### C BC ####[facility] Yrpqorzhce[address] [place], [place] [address]Dr. Tadeo Smyth IG % 0.2 % Normal 0.0-0.5 The [facility] Comment on above: Performed By: #### C BC ####[facility] Faygylwdxl0[address] [place], [place] [address]Dr. Tadeo Smyth LYMPH # 1.7 103/ul Normal 1.2-3.8 The [facility] Comment on above: Performed By: #### C BC ####[facility] Odvivwvvjh14[address] [place] [phone]. Tadeo Smyth Lymphocytes/100 WBC (Bld) 28.1 % Normal 20.5-60.0 The [facility] Comment on above: Performed By: #### C BC ####[facility] Dglo[address]dnov[address] [place] [phone]. Tadeo Haja MANUAL DIFF REQ NO Normal The [facility] Comment on above: Performed By: #### C BC ####[facility] Jzjxpctbuu40[address] [place] [phone]. Tadeo Haja MCH (RBC) [Entitic mass] 28.5 pg Normal 26.7-34.0 The [facility] Comment on above: Performed By: #### C BC ####[facility] Xooltlqzue8[address] [place], [place] [address]Dr. Tadeo Haja MCHC (RBC) [Mass/Vol] 31.3 g/dL Normal 29.9-35.2 The [facility] Comment on above: Performed By: #### C BC ####[facility] Dlbsjyfrge23[address] [place] [phone]. Tadeo Smyth MCV (RBC) [Entitic vol] 91.0 fL Normal 81.0-99.0 The [facility] Comment on above: Performed By: #### C BC ####[facility] [address]xxph[address] [place] [address]Dr. Margotnicole Haja MONO # 0.4 103/ul Normal 0.3-0.8 [facility] Comment on above: Performed By: #### C BC ####[facility] Rnbwfrhqbm8[address] [place] [phone]. Margotnicole Smyth Monocytes/100 WBC (Bld) 7.1 % Normal 1.7-12.0 The [facility] Comment on above: Performed By: #### C BC ####[facility] Siotnyocgh[address] [place], [place] [address]Dr. Tadeo Smyth NEUT # 3.6 103/ul Normal 1.4-6.5 The [facility] Comment on above: Performed By: #### C BC ####[facility] Bguoiitxhl65[address] [place] [phone]. Tadeo Smyth Neutrophils/100 WBC (Bld) 60.7 % Normal 43.0-75.0 [facility] Comment on above: Performed By: #### C BC ####[facility] Dhxesxenzu33[address] [place] [phone]. Tadeo Smyth Platelet mean volume (Bld) [Entitic vol] 8.9 fL Critically low 9.5-13.5 The [facility] Comment on above: Performed By: #### C BC ####[facility] Uotvtqbehe90[address] [place] [phone]. Tadeo Smyth PLT 374 103/ul Normal 150-450 [facility] Comment on above: Performed By: #### C BC ####[facility] Qzfhpcalrx2225 [place] [phone]. Tadeo Smyth RBC 4.21 106/ul Normal 4.20-5.40 The [facility] Comment on above: Performed By: #### C BC ####[facility] S[address]sh[address] [place], [place] [address]Dr. Tadeo Smyth WBC 5.9 103/ul Normal 4.0-11.0 The [facility] Comment on above: Performed By: #### C BC ####[facility] Niy[address]oycqn[address] [place] [phone]. Tadeo Smyth CT ABD/PELV W CONon 06-06-[address] ABD/PELV W CON Normal [facility] ER URINE PROFILEon 2 Bilirubin Ql (U) Negative Normal NEGATIVE The [facility] Comment on above: Performed By: #### SANDRO MERCHANTRO ####[facility] Texmcadeam[address] [place] [phone]. Tadeo Haja Clarity (U) CLOUDY Abnormal CLEAR The [facility] Comment on above: Performed By: #### SANDRO MERCHANTRO ####[facility] M[address]fcf[address]csb4[address] [place] [phone]. Tadeo Smyth Color (U) LT. YELLOW Normal YELLOW The [facility] Comment on above: Performed By: #### E RUR, UMICRO ####[facility] F[address]grbatma[address] [place] [address]Dr. Tadeo ENG A micrscopic examina tion will be performed if indicated. Normal The [facility] Comment on above: Performed By: #### SANDRO MERCHANTRO ####[facility] Pwlctyndsk[address] [place] [address]Dr. Tadeo Smyth Glucose Ql (U) Negative Normal NEGATIVE The [facility] Comment on above: Performed By: #### SANDRO MERCHANTRO ####[facility] Jcikftquks[address] [place] [address]Dr. Tadeo Smyth Hemoglobin Ql (U) TRACE-INTACT Abnormal NEGATIVE [facility] Comment on above: Performed By: #### SANDRO MERCHANTRO ####[facility] Lxsorajtkn[address] [place] [address]Dr. Tadeo Smyth Ketones Ql (U) Negative Normal NEGATIVE The [facility] Comment on above: Performed By: #### SANDRO MERCHANTRO ####[facility] Lvbelqzyqv[address] [place], [place] [address]Dr. Tadeo Smyth LEUKOCYTES SMALL Abnormal NEGATIVE [facility] Comment on above: Performed By: #### SANDRO MERCHANTRO ####[facility] Cwlqyqqalz[address] [place], [place] [address]Dr. Tadeo Smyth Nitrite Ql (U) Negative Normal NEGATIVE The [facility] Comment on above: Performed By: #### SANDRO MERCHANTRO ####[facility] Qwvzwkwxow13[address] [place] [address]Dr. Tadeo Smyth pH (U) 6.0 [pH] Normal 5-9 [facility] Comment on above: Performed By: #### SANDRO MERCHANTRO ####[facility] Zycxsbykre8[address] [place], [place] [address]Dr. Tadeo Smyth SPEC GRAVITY 1.020 Normal 1.005-<=1.0 25 [facility] Comment on above: Performed By: #### SANDRO MERCHANTRO ####[facility] Cbyvfntgzw[address] [place] [address]Dr. Tadeo Smyth UA PROTEIN Negative Normal NEGATIVE/ TRACE The [facility] Comment on above: Performed By: #### KAROL MERCHANT ####[facility] M[address]fidol[address] [place] [address]Dr. Tadeo Smyth UR MICRO IND INDICATED Normal The [facility] Comment on above: Performed By: #### KAROL MERCHANT ####[facility] Bmssrsjyqc20[address] [place] [address]Dr. Tadeo Smyth Urobilinogen Qn (U) 0.2 {Benito'U}/dL Normal 0.2 - 1. 0 The [facility] Comment on above: Performed By: #### KAROL MERCHANT ####[facility] G[address]vs[address]wxbx[address] [place], [place] [address]Dr. Tadeo Smyth LIPASEon 06-06-2022 Lipase [Catalytic activity/Vol] 100.0 U/L Normal 73.0-393.0 [facility] Comment on above: Performed By: #### A MY, LIPA ####[facility] Eotabkqufk[address] [place] [address]Dr. Tadeo Smyth PROF 14(COMP METB)on 022 Albumin [Mass/Vol] 3.3 g/dL Critically low 3.4-5.0 Th [facility] Comment on above: Performed By: #### C MP ####[facility] Qygroqrawu4[address] [place] [address]Dr. Tadeo Smyth Albumin/Globulin [Mass ratio] 0.9 {ratio} Normal [facility] Comment on above: Performed By: #### C MP ####[facility] Enmwpohiuz54[address] [place] [address]Dr. Tadeo Smyth ALP [Catalytic activity/Vol] 140 U/L Critically high 46-116 The [facility] Comment on above: Performed By: #### C MP ####[facility] Nostbnmece[address] [place] [address]Dr. Tadeo Smyth ALT [Catalytic activity/Vol] 23 U/L Normal 14-59 [facility] Comment on above: Performed By: #### C MP ####[facility] Zyggwnvqfd6862 [place] [phone]. Tadeo Smyth Anion gap [Moles/Vol] 11.6 mmol/L Normal Th [facility] Comment on above: Performed By: #### C MP ####[facility] Dbuzdphddx57[address] [place] [address]Dr. Tadeo Smyth AST [Catalytic activity/Vol] 18 U/L Normal 15-37 [facility] Comment on above: Performed By: #### C MP ####[facility] Vvyqkveqpd90[address] [place] [address]Dr. Tadeo Smyth Bilirubin [Mass/Vol] 0.2 mg/dL Normal 0.2-1.0 [facility] Comment on above: Performed By: #### C MP ####[facility] Prvsqlcwdp[address] [place], [place] [address]Dr. Tadeo Smyth Calcium [Mass/Vol] 8.8 mg/dL Normal 8.5-10.1 [facility] Comment on above: Performed By: #### C MP ####[facility] Fjpncwspgh[address] [place], [place] [address]Dr. Tadeo Haja Chloride [Moles/Vol] 109 mmol/L Critically high 98-107 [facility] Comment on above: Performed By: #### C MP ####[facility] Hnwxcmrpfi[address] [place], [place] [address]Dr. Tadeo Haja CO2 [Moles/Vol] 26.3 mmol/L Normal 21.0-32.[address] [facility] Comment on above: Performed By: #### C MP ####[facility] Ufbxhnuqzj[address] [place], [place] [address]Dr. Tadeo Smyth Creatinine [Mass/Vol] 0.81 mg/dL Normal 0.55-1.02 [facility] Comment on above: Performed By: #### C MP ####[facility] Vvyrqymopg[address] [place], [place] [address]Dr. Tadeo Haja EGFR-AF [place] >60 Normal >=[address] [facility] Comment on above: Performed By: #### C MP ####[facility] Nacgiccfcu4[address] [place] [phone]. Tadeo Smyth EGFR-NON AF [place] >60 Normal >=60 [facility] Comment on above: Performed By: #### C MP ####[facility] Pnhhjpsyuf9063 [place] [phone]. Tadeo Smyth Globulin (S) [Mass/Vol] 3.7 g/dL Normal [facility] Comment on above: Performed By: #### C MP ####[facility] Lpiiwpilvo4917 [place] [phone]. Tadeo Smyth Glucose [Mass/Vol] 90 mg/dL Normal 74-106 [facility] Comment on above: Performed By: #### C MP ####[facility] Mjqjwaeqzd12[address] [place] [address]Dr. Tadeo Smyth Potassium [Moles/Vol] 3.9 mmol/L Normal 3.5-5.1 [facility] Comment on above: Performed By: #### C MP ####[facility] Osyyubwaob[address] [place], [place] [address]Dr. Tadeo Smyth Protein [Mass/Vol] 7.0 g/dL Normal 6.4-8.2 [facility] Comment on above: Performed By: #### C MP ####[facility] Evyoqybxrj96[address] [place], [place] [address]Dr. Tadeo Smyth Sodium [Moles/Vol] 143 mmol/L Normal 136-145 [facility] Comment on above: Performed By: #### C MP ####[facility] Ysnwifsetz2994 [place] [phone]. Tadeo Smyth Urea nitrogen [Mass/Vol] 12.0 mg/dL Normal 7.0-18.0 [facility] Comment on above: Performed By: #### C MP ####[facility] Lcrbfpcfzi6[address] [place] [address]Dr. Tadeo Smyth Urea nitrogen/Creatinine [Mass ratio] 14.8 mg/mg Normal [facility] Comment on above: Performed By: #### C MP ####[facility] Ogdqrvfxhu[address] [place], [place] [address]Dr. Tadeo Smyth URINE MICROSCOPIC ONLYon BACTERIA LARGE Abnormal NONE SEEN The [facility] Comment on above: Performed By: #### KAROL MERCHANT ####[facility] Xnwogebyww[address] [place], [place] [address]Dr. Tadeo Smyth Bacteria identified Cx Nom (U) INDICATED Normal The [facility] Comment on above: Performed By: #### KAROL MERCHANT ####[facility] T[address]xaqdykr[address] [place], [place] [address]Dr. Tadeo Smyth CAST NONE SEEN Normal NONE SEEN The [facility] Comment on above: Performed By: #### KAROL MERCHANT ####[facility] Lqdjijirfc[address] [place], [place] [address]Dr. Tadeo Smyth Crystals LM Nom (Urine sed) NONE SEEN Normal NONE SEEN The [facility] Comment on above: Performed By: #### SANDRO MERCHANTRO ####[facility] [facility] Imrefhkzch[address] [place], [place] [address]Dr. Tadeo Smyth Epithelial cells LM Ql (Urine sed) RARE Normal NONE SEEN /RARE [facility] Comment on above: Performed By: #### KAROL MERCHANT ####[facility] Gygmtangby[address] [place], [place] [address]Dr. Tadeo Smyth MUCOUS TRACE Abnormal NONE SEEN [facility] Comment on above: Performed By: #### KAROL MERCHANT ####[facility] Boqlurdshr85[address] [place], [place] [address]Dr. Tadeo Smyth RBC 0-2 Normal 0-2 [facility] Comment on above: Performed By: #### SANDRO MERCHANTRO ####[facility] Rirczhmsql[address] [place], [place] [address]Dr. Tadeo Smyth WBC 2-5 Abnormal NONE SEEN [facility] Comment on above: Performed By: #### SANDRO MERCHANTRO ####[facility] Qkubculnmw[address] [place], [place] [address]Dr. Tadeo Smyth AMYLASEon 06-04-2022 Amylase [Catalytic activity/Vol] 61 U/L Normal 25-115 [facility] Comment on above: Performed By: #### A MY, CMP, LIPA ####[facility] [address] [place] [address]Dr. Tadeo Smyth CBC AUTO DIFFon 06-04-2022 BASO # 0.0 103/ul Normal 0.0-0.1 [facility] Comment on above: Performed By: #### C BC ####[facility] Ozsxhyolie67[address] [place], [place] [address]Dr. Margotnicole Smyth Basophils/100 WBC (Bld) 0.5 % Normal 0.2-2.0 [facility] Comment on above: Performed By: #### C BC ####[facility] Zduocmipaj19[address] [place], [place] [address]Dr. Tadeo Smyth EO # 0.3 103/ul Normal 0.0-0.7 [facility] Comment on above: Performed By: #### C BC ####[facility] Dxaydlajas27[address] [place], [place] [address]Dr. Margotnicole Smyth Eosinophils/100 WBC (Bld) 4.7 % Normal 0.9-7.0 [facility] Comment on above: Performed By: #### C BC ####[facility] Ezacupqugk[address] [place], [place] [address]Dr. Tadeo Smyth Erythrocyte distribution width (RBC) [Ratio] 13.2 % Normal 11.0-15.0 [facility] Comment on above: Performed By: #### C BC ####[facility] Zfbvqyeory8[address] [place], [place] [address]Dr. Tadeo Smyth Hematocrit (Bld) [Volume fraction] 36.9 % Normal 36.0-48.0 [facility] Comment on above: Performed By: #### C BC ####[facility] Guqzxehpiv94[address] [place], [place] [address]Dr. Tadeo Smyth Hemoglobin (Bld) [Mass/Vol] 11.9 g/dL Critically low 12.0-16.0 [facility] Comment on above: Performed By: #### C BC ####[facility] Prawllndjx[address] [place] [address]Dr. Tadeo Haja IG # 0.01 10e3/ul Normal 0.00-0.03 [facility] Comment on above: Performed By: #### C BC ####[facility] Wdzhfrsaia[address] [place] [address]Dr. Tadeo Smyth IG % 0.2 % Normal 0.0-0.5 [facility] Comment on above: Performed By: #### C BC ####[facility] Sjrrelklij[address] [place], [place] [address]DrNeo Smyth LYMPH # 2.3 103/ul Normal 1.2-3.8 [facility] Comment on above: Performed By: #### C BC ####[facility] Ljiqejnndn646[address] [place], [place] [address]Dr. Tadeo Smyth Lymphocytes/100 WBC (Bld) 37.3 % Normal 20.5-60.0 [facility] Comment on above: Performed By: #### C BC ####[facility] Gaahkozmlh[address] [place], [place] [address]DrNeo Margotnicole Smyth MANUAL DIFF REQ NO Normal [facility] Comment on above: Performed By: #### C BC ####[facility] Psrnigabib[address] [place], [place] [address]DrNeo Tadeo Haja MCH (RBC) [Entitic mass] 29.0 pg Normal 26.7-34.0 [facility] Comment on above: Performed By: #### C BC ####[facility] Gzgllagoyf35[address] [place], [place] [address]DrNeo Tadeo Haja MCHC (RBC) [Mass/Vol] 32.2 g/dL Normal 29.9-35.2 [facility] Comment on above: Performed By: #### C BC ####[facility] Uhgeqiwwyl833[address] [place], [place] [address]DrNeo Tadeo Haja MCV (RBC) [Entitic vol] 90.0 fL Normal 81.0-99.0 [facility] Comment on above: Performed By: #### C BC ####[facility] Xahzviapvo[address] [place], [place] [address]Dr. Tadeo Smyth MONO # 0.4 103/ul Normal 0.3-0.8 [facility] Comment on above: Performed By: #### C BC ####[facility] Xgfaimvrft[address] [place] [address]Dr. Tadeo Smyth Monocytes/100 WBC (Bld) 6.8 % Normal 1.7-12.0 [facility] Comment on above: Performed By: #### C BC ####[facility] Fmpuvyouhu[address] [place] [address]Dr. Tadeo Smyth NEUT # 3.2 103/ul Normal 1.4-6.5 [facility] Comment on above: Performed By: #### C BC ####[facility] Eqwqpnouti[address] [place], [place] [address]Dr. Tadeo Smyth Neutrophils/100 WBC (Bld) 50.5 % Normal 43.0-75.0 [facility] Comment on above: Performed By: #### C BC ####[facility] Pzjyydhdkq[address] [place], [place] [address]Dr. Tadeo Smyth Platelet mean volume (Bld) [Entitic vol] 8.9 fL Critically low 9.5-13.5 [facility] Comment on above: Performed By: #### C BC ####[facility] Lxdynamgtp[address] [place], [place] [address]Dr. Tadeo Smyth PLT 387 103/ul Normal 150-450 [facility] Comment on above: Performed By: #### C BC ####[facility] Enilemycnk7764[address] [place], [place] [address]Dr. Tadeo Smyth RBC 4.10 106/ul Critically low 4.20-5.40 [facility] Comment on above: Performed By: #### C BC ####[facility] Etfbdhuowb[address] [place], [place] [address]Dr. Tadeo Smyth WBC 6.2 103/ul Normal 4.0-11.0 [facility] Comment on above: Performed By: #### C BC ####[facility] Qxtmfsfepp[address] [place] [address]Dr. Tadeo Smy[address] CT ABD/PELV W CONon 06-04-[address] ABD/PELV W CON Normal [facility] ER URINE PROFILEon 2 Bilirubin Ql (U) Negative Normal NEGATIVE The [facility] Comment on above: Performed By: #### SANDRO MERCHANTRO ####[facility] Ceeuvoeybh[address] [place] [address]Dr. Tadeo Smyth Clarity (U) CLEAR Normal CLEAR [facility] Comment on above: Performed By: #### SANDRO MERCHANTRO ####[facility] Eoxcvxotpo394[address] [place], [place] [address]Dr. Tadeo Smyth Color (U) LT. YELLOW Normal YELLOW [facility] Comment on above: Performed By: #### KAROL MERCHANT ####[facility] Doisjodsjd[address] [place], [place] [address]Dr. Tadeo Smyth ERUAHD A micrscopic examina tion will be performed if indicated. Normal [facility] Comment on above: Performed By: #### SANDRO MERCHANTRO ####[facility] Fsxnucpwdn[address] [place], [place] [address]Dr. Tadeo Smyth Glucose Ql (U) Negative Normal NEGATIVE The [facility] Comment on above: Performed By: #### SANDRO MERCHANTRO ####[facility] Bpksjxvhsi13[address] [place], [place] [address]Dr. Tadeo Smyth Hemoglobin Ql (U) TRACE-INTACT Abnormal NEGATIVE [facility] Comment on above: Performed By: #### KAROL MERCHATN ####[facility] Rsodvllpan[address] [place] [address]Dr. Tadeo Smyth Ketones Ql (U) Negative Normal NEGATIVE The [facility] Comment on above: Performed By: #### SANDRO MERCHANTRO ####[facility] Phfhqwfbrs[address] [place], [place] [address]Dr. Tadeo Smyth LEUKOCYTES Negative Normal NEGATIVE [facility] Comment on above: Performed By: #### KAROL MERCHANT ####[facility] Xbvjoebnus[address] [place], [place] [address]Dr. Tadeo Smyth Nitrite Ql (U) Negative Normal NEGATIVE [facility] Comment on above: Performed By: #### KAROL MERCHANT ####[facility] Ob[address]oq[address] [place] [address]Dr. Tadeo Smyth pH (U) 6.5 [pH] Normal 5-9 [facility] Comment on above: Performed By: #### KAROL MERCHANT ####[facility] Ylqfqyfffk[address] [place] [address]Dr. Tadeo Smyth SPEC GRAVITY 1.015 Normal 1.005-<=1.0 25 [facility] Comment on above: Performed By: #### KAROL MERCHANT ####[facility] Mrzszeukrh[address] [place], [place] [address]Dr. Tadeo Smyth UA PROTEIN Negative Normal NEGATIVE/ TRACE [facility] Comment on above: Performed By: #### KAROL MERCHANT ####[facility] Mfqwtsajdn[address] [place], [place] [address]Dr. Tadeo Smyth UR MICRO IND INDICATED Normal [facility] Comment on above: Performed By: #### KAROL MERCHANT ####[facility] W[address]wvdmvmxl[address] [place] [address]Dr. Tadeo Smyth Urobilinogen Qn (U) 0.2 {Benito'U}/dL Normal 0.2 - 1. 0 [facility] Comment on above: Performed By: #### KAROL MERCHANT ####[facility] Ofpivywrcc[address] [place] [address]Dr. Tadeo Smyth LIPASEon 06-04-2022 Lipase [Catalytic activity/Vol] 81.0 U/L Normal 73.0-393.0 [facility] Comment on above: Performed By: #### A MY, CMP, LIPA ####[facility] Psxkmxyeiy[address] [place] [address]DrNeo Smyth PROF 14(COMP METB)on 022 Albumin [Mass/Vol] 3.6 g/dL Normal 3.4-5.0 [facility] Comment on above: Performed By: #### A MY, CMP, LIPA ####[facility] V[address]oezpfj[address] [place] [address]Dr. Margotnicole Smyth Albumin/Globulin [Mass ratio] 1.0 {ratio} Normal [facility] Comment on above: Performed By: #### A MY, CMP, LIPA ####[facility] S[address]wbhud[address] [place] [address]Dr. Tadeo Smyth ALP [Catalytic activity/Vol] 150 U/L Critically high 46-116 [facility] Comment on above: Performed By: #### A MY, CMP, LIPA ####[facility] Gesenyzbzx[address] [place], [place] [address]Dr. Tadeo Smyth ALT [Catalytic activity/Vol] 23 U/L Normal 14-59 [facility] Comment on above: Performed By: #### A MY, CMP, LIPA ####[facility] Lxfiwetkyg[address] [place], [place] [address]Dr. Tadeo Smyth Anion gap [Moles/Vol] 13.2 mmol/L Normal [facility] Comment on above: Performed By: #### A MY, CMP, LIPA ####[facility] Cacchsggyy[address] [place], [place] [address]Dr. Tadeo Smyth AST [Catalytic activity/Vol] 12 U/L Critically low 15-37 [facility] Comment on above: Performed By: #### A MY, CMP, LIPA ####[facility] Aykhpcbczb[address] [place], [place] [address]Dr. Tadeo Smyth Bilirubin [Mass/Vol] 0.1 mg/dL Critically low 0.2-1.0 [facility] Comment on above: Performed By: #### A MY, CMP, LIPA ####[facility] Seujlbgnpr[address] [place], [place] [address]Dr. Tadeo Smyth Calcium [Mass/Vol] 9.0 mg/dL Normal 8.5-10.1 [facility] Comment on above: Performed By: #### A MY, CMP, LIPA ####[facility] Josqklohxw[address] [place], [place] [address]Dr. Tadeo Smyth Chloride [Moles/Vol] 104 mmol/L Normal 98-107 [facility] Comment on above: Performed By: #### A MY, CMP, LIPA ####[facility] Psoyhq[address]vle[address] [place] [id number]. Tadeo Smyth CO2 [Moles/Vol] 26.6 mmol/L Normal 21.0-32.[address] [facility] Comment on above: Performed By: #### A MY, CMP, LIPA ####[facility] Jc[address]am[address] [place] [address]Dr. Tadeo Smyth Creatinine [Mass/Vol] 0.97 mg/dL Normal 0.55-1.02 [facility] Comment on above: Performed By: #### A MY, CMP, LIPA ####[facility] O[address]ws[address] [place] [address]Dr. Tadeo Smyth EGFR-AF [place] >60 Normal >=[address] [facility] Comment on above: Performed By: #### A MY, CMP, LIPA ####[facility] At[address]ustura[address] [place] [address]Dr. Tadeo Smyth EGFR-NON AF [place] 60 mL/min/1.73m2 Normal >=60 [facility] Comment on above: Performed By: #### A MY, CMP, LIPA ####[facility] Lqmkyjboxl38[address] [place] [id number]. Tadeo Smyth Globulin (S) [Mass/Vol] 3.7 g/dL Normal [facility] Comment on above: Performed By: #### A MY, CMP, LIPA ####[facility] Tzahxxurxe[address] [place] [phone]. Tadeo Smyth Glucose [Mass/Vol] 109 mg/dL Critically high 74-106 [facility] Comment on above: Performed By: #### A MY, CMP, LIPA ####[facility] Sdrwgdcnxv16[address] [place] [address]Dr. Tadeo Smyth Potassium [Moles/Vol] 3.8 mmol/L Normal 3.5-5.1 [facility] Comment on above: Performed By: #### A MY, CMP, LIPA ####[facility] Xhgxblmdqh4[address] [place] [address]Dr. Tadeo Smyth Protein [Mass/Vol] 7.3 g/dL Normal 6.4-8.2 [facility] Comment on above: Performed By: #### A MY, CMP, LIPA ####[facility] Becxeetjrr[address] [place] [address]Dr. Tadeo Smyth Sodium [Moles/Vol] 140 mmol/L Normal 136-145 [facility] Comment on above: Performed By: #### A MY, CMP, LIPA ####[facility] Unqwjaeljx[address] [place], [place] [address]Dr. Tadeo Smyth Urea nitrogen [Mass/Vol] 21.0 mg/dL Critically high 7.0-18.0 [facility] Comment on above: Performed By: #### A MY, CMP, LIPA ####[facility] Ujqbbzjjig20[address] [place], [place] [address]Dr. Tadeo Smtyh Urea nitrogen/Creatinine [Mass ratio] 21.6 mg/mg Normal [facility] Comment on above: Performed By: #### A MY, CMP, LIPA ####[facility] Nertjmyahn[address] [place], [place] [address]Dr. Tadeo Smyth URINE MICROSCOPIC ONLYon BACTERIA NONE SEEN Normal NONE SEEN The [facility] Comment on above: Performed By: #### SANDRO MERCHANTRO ####[facility] Agehgmztuu[address] [place], [place] [address]Dr. Tadeo Smyth Bacteria identified Cx Nom (U) NOT INDICATED Normal [facility] Comment on above: Performed By: #### Matthew FRANCISCO UMICRO ####[facility] Realgqkzih[address] [place], [place] [address]Dr. Tadeo Smyth CAST NONE SEEN Normal NONE SEEN [facility] Comment on above: Performed By: #### Matthew FRANCISCO UMICRO ####[facility] Kfoaixyrhk[address] [place], [place] [address]Dr. Tadeo Smyth Crystals LM Nom (Urine sed) NONE SEEN Normal NONE SEEN [facility] Comment on above: Performed By: #### SANDRO MERCHANTRO ####[facility] Svfvcmoofr[address]37 [place] [phone]. Tadeo Smyth Epithelial cells LM Ql (Urine sed) FEW Abnormal NONE SEEN /RARE [facility] Comment on above: Performed By: #### SANDRO MERCHANTRO ####[facility] Qnrmtbzoso4742 [place] [phone]. Tadeo Smyth MUCOUS NONE SEEN Normal NONE SEEN The [facility] Comment on above: Performed By: #### E SANDRO FRANCISCORO ####[facility] Dwymyrrdub[address] [place] [address]Dr. Tadeo Smyth RBC 0-2 Normal 0-2 [facility] Comment on above: Performed By: #### E SANDRO FRANCISCORO ####[facility] Raqosrtfcu83[address] [place] [address]Dr. Tadeo Smyth WBC NONE SEEN Normal NONE SEEN [facility] Comment on above: Performed By: #### SANDRO MERCHANTRO ####[facility] W[address]zppaujm[address] [place], [place] [id number]. Tadeo Smyth MICRO OTHER TESTSOrdered By: Guillermo Rocha on 04-29-2022 Fecal WBC Lactoferrin Negative (04/29/22 8:00 AM) Normal Negative [facility] Man Sero CULTURE URINEon 03-31-2022 CULTURE URINE Normal [facility] Comment on above: Performed By: #### U RCX ####[facility] Lmhntyjzhc[address] [place], [place] [address]Dr. Tadeo Smyth CBC AUTO DIFFon 03-30-2022 BASO # 0.0 103/ul Normal 0.0-0.1 [facility] Comment on above: Performed By: #### C BC ####[facility] Ayussaykgx1837 [place] [phone]. Tadeo Smyth Basophils/100 WBC (Bld) 0.4 % Normal 0.2-2.0 [facility] Comment on above: Performed By: #### C BC ####[facility] Ruhowzjlrb[address] [place], [place] [address]Dr. Tadeo Smyth EO # 0.3 103/ul Normal 0.0-0.7 [facility] Comment on above: Performed By: #### C BC ####[facility] Hvxovgotmt01[address] [place] [address]Dr. Tadeo Smyth Eosinophils/100 WBC (Bld) 5.1 % Normal 0.9-7.0 [facility] Comment on above: Performed By: #### C BC ####[facility] Fzmeutheqm[address] [place], [place] [address]Dr. Tadeo Smyth Erythrocyte distribution width (RBC) [Ratio] 12.8 % Normal 11.0-15.0 [facility] Comment on above: Performed By: #### C BC ####[facility] Gozsptjrfd[address] [place], [place] [address]Dr. Tadeo Smyth Hematocrit (Bld) [Volume fraction] 36.4 % Normal 36.0-48.0 [facility] Comment on above: Performed By: #### C BC ####[facility] Oiyzkbmmzg97[address] [place], [place] [address]Dr. Tadeo Smyth Hemoglobin (Bld) [Mass/Vol] 12.0 g/dL Normal 12.0-16.0 [facility] Comment on above: Performed By: #### C BC ####[facility] Iyrgdfxikx[address] [place], [place] [address]Dr. Tadeo Smyth IG # 0.02 10e3/ul Normal 0.00-0.03 [facility] Comment on above: Performed By: #### C BC ####[facility] Xnufmipydx[address] [place], [place] [address]Dr. Tadeo Smyth IG % 0.4 % Normal 0.0-0.5 [facility] Comment on above: Performed By: #### C BC ####[facility] Ugkkkkjojs[address] [place], [place] [address]DrNeo Tadeo Haja LYMPH # 1.4 103/ul Normal 1.2-3.8 [facility] Comment on above: Performed By: #### C BC ####[facility] Jqgdkuqcjb[address] [place], [place] [address]Dr. Tadeo Smyth Lymphocytes/100 WBC (Bld) 25.5 % Normal 20.5-60.0 [facility] Comment on above: Performed By: #### C BC ####[facility] Tufevquwtr[address] [place] [address]Dr. Tadeo Smyth MANUAL DIFF REQ NO Normal [facility] Comment on above: Performed By: #### C BC ####[facility] Rhpdxbzckw3630 [place] [address]Dr. Tadeo Smyth MCH (RBC) [Entitic mass] 29.1 pg Normal 26.7-34.0 [facility] Comment on above: Performed By: #### C BC ####[facility] Hbwzlwndri[address] [place], [place] [address]Dr. Tadeo Smyth MCHC (RBC) [Mass/Vol] 33.0 g/dL Normal 29.9-35.2 [facility] Comment on above: Performed By: #### C BC ####[facility] Trfemgafll[address] [place], [place] [address]Dr. Tadeo Smyth MCV (RBC) [Entitic vol] 88.3 fL Normal 81.0-99.0 [facility] Comment on above: Performed By: #### C BC ####[facility] Vbytoigpho[address] [place], [place] [address]Dr. Tadeo Smyth MONO # 0.4 103/ul Normal 0.3-0.8 [facility] Comment on above: Performed By: #### C BC ####[facility] Cyqhmkuukl[address] [place], [place] [address]Dr. Tadeo Smyth Monocytes/100 WBC (Bld) 7.1 % Normal 1.7-12.0 [facility] Comment on above: Performed By: #### C BC ####[facility] Zpfbrhd[address] [place], [place] [address]Dr. Tadeo Smyth NEUT # 3.4 103/ul Normal 1.4-6.5 [facility] Comment on above: Performed By: #### C BC ####[facility] Cfocdlqxdv[address] [place], [place] [address]Dr. Tadeo Smyth Neutrophils/100 WBC (Bld) 61.5 % Normal 43.0-75.0 [facility] Comment on above: Performed By: #### C BC ####[facility] Iinpsxagcz[address]4 [place] [address]Dr. Tadeo Haja Platelet mean volume (Bld) [Entitic vol] 8.8 fL Critically low 9.5-13.5 [facility] Comment on above: Performed By: #### C BC ####[facility] Rbaapeajqv[address] [place] [address]DrNeo Smyth PLT 324 103/ul Normal 150-450 [facility] Comment on above: Performed By: #### C BC ####[facility] Liephjbwax[address] [place] [address]Dr. Tadeo Smyth RBC 4.12 106/ul Critically low 4.20-5.40 [facility] Comment on above: Performed By: #### C BC ####[facility] Pyblgyjchd9[address] [place] [address]DrNeo Smyth WBC 5.5 103/ul Normal 4.0-11.0 [facility] Comment on above: Performed By: #### C BC ####[facility] Ldjeuhsuhv[address] [place], [place] [address]DrNeo Smyth PROF 14(COMP METB)on 022 Albumin [Mass/Vol] 3.1 g/dL Critically low 3.4-5.0 [facility] Comment on above: Performed By: #### C MP ####[facility] Hlqyyrqybi30[address] [place] [address]DrNeo Smyth Albumin/Globulin [Mass ratio] 0.9 {ratio} Normal [facility] Comment on above: Performed By: #### C MP ####[facility] Psfmckhxqu2735 [place] [address]DrNeo Smyth ALP [Catalytic activity/Vol] 119 U/L Critically high 46-116 [facility] Comment on above: Performed By: #### C MP ####[facility] Dpejhcgmkg1418 [place] [address]Dr. Tadeo Haja ALT [Catalytic activity/Vol] 17 U/L Normal 14-59 [facility] Comment on above: Performed By: #### C MP ####[facility] Idllxkrqhf2999 [place] [address]Dr. Tadeo Haja Anion gap [Moles/Vol] 12.0 mmol/L Normal Th [facility] Comment on above: Performed By: #### C MP ####[facility] Kjtmgkwqzt7182 [place] [address]Dr. Tadeo Haja AST [Catalytic activity/Vol] 16 U/L Normal 15-37 [facility] Comment on above: Performed By: #### C MP ####[facility] Ctzttjimct[address] [place], [place] [address]Dr. Margotnicole Haja Bilirubin [Mass/Vol] 0.4 mg/dL Normal 0.2-1.0 [facility] Comment on above: Performed By: #### C MP ####[facility] Nvfroxshkh334[address] [place], [place] [address]Dr. Tadeo Haja Calcium [Mass/Vol] 8.9 mg/dL Normal 8.5-10.1 [facility] Comment on above: Performed By: #### C MP ####[facility] Lasspngkag529[address] [place], [place] [address]Dr. Tadeo Smyth Chloride [Moles/Vol] 107 mmol/L Normal 98-107 [facility] Comment on above: Performed By: #### C MP ####[facility] Uoziajvqni69[address] [place], [place] [address]Dr. Tadeo Haja CO2 [Moles/Vol] 26.9 mmol/L Normal 21.0-32.[address] [facility] Comment on above: Performed By: #### C MP ####[facility] Quwxadivsu9799[address] [place], [place] [address]Dr. Tadeo Smyth Creatinine [Mass/Vol] 0.82 mg/dL Normal 0.55-1.02 [facility] Comment on above: Performed By: #### C MP ####[facility] Nmwjetqfpc5[address] [place], [place] [address]Dr. Tadeo Smyth EGFR-AF [place] >60 Normal >=[address] [facility] Comment on above: Performed By: #### C MP ####[facility] Kkiebgidrk9195 [place] [id number]. Tadeo Smyth EGFR-NON AF [place] >60 Normal >=60 [facility] Comment on above: Performed By: #### C MP ####[facility] Lxfhzkhpvv8691 [place] [id number]. Tadeo Smyth Globulin (S) [Mass/Vol] 3.5 g/dL Normal [facility] Comment on above: Performed By: #### C MP ####[facility] Kmvbfinefc1174 [place] [id number]. Tadeo Smyth Glucose [Mass/Vol] 104 mg/dL Normal 74-106 [facility] Comment on above: Performed By: #### C MP ####[facility] Qpzncnbfck0515 [place] [phone]. Tadeo Smyth Potassium [Moles/Vol] 3.9 mmol/L Normal 3.5-5.1 [facility] Comment on above: Performed By: #### C MP ####[facility] Sdseokidls7013 [place] [phone]. Tadeo Smyth Protein [Mass/Vol] 6.6 g/dL Normal 6.4-8.2 [facility] Comment on above: Performed By: #### C MP ####[facility] Xppckvfsuc5360 [place] [address]Dr. Tadeo Smyth Sodium [Moles/Vol] 142 mmol/L Normal 136-145 [facility] Comment on above: Performed By: #### C MP ####[facility] Vjljxvpzah9485 [place] [phone]. Tadeo Smyth Urea nitrogen [Mass/Vol] 5.0 mg/dL Critically low 7.0-18.0 [facility] Comment on above: Performed By: #### C MP ####[facility] Ougsdfurfd8194 [place] [phone]. Tadeo Smyth Urea nitrogen/Creatinine [Mass ratio] 6.1 mg/mg Normal [facility] Comment on above: Performed By: #### C MP ####[facility] Ocrqedrwni999[address] [place], [place] [address]Dr. Tadeo Smyth CBC AUTO DIFFon 03-29-2022 BASO # 0.0 103/ul Normal 0.0-0.1 [facility] Comment on above: Performed By: #### C BC ####[facility] Etmcaowaph[address] [place], [place] [address]Dr. Tadeo Smyth Basophils/100 WBC (Bld) 0.4 % Normal 0.2-2.0 [facility] Comment on above: Performed By: #### C BC ####[facility] Itlzyakizu380[address] [place], [place] [address]Dr. Tadeo Smyth EO # 0.2 103/ul Normal 0.0-0.7 [facility] Comment on above: Performed By: #### C BC ####[facility] Kouiskdqbk08[address] [place], [place] [address]Dr. Tadeo Smyth Eosinophils/100 WBC (Bld) 4.3 % Normal 0.9-7.0 [facility] Comment on above: Performed By: #### C BC ####[facility] Cbscxrannf[address] [place], [place] [address]Dr. Tadeo Smyth Erythrocyte distribution width (RBC) [Ratio] 12.9 % Normal 11.0-15.0 [facility] Comment on above: Performed By: #### C BC ####[facility] Haqspskswr509[address] [place], [place] [address]Dr. Tadeo Smyth Hematocrit (Bld) [Volume fraction] 33.8 % Critically low 36.0-48.0 [facility] Comment on above: Performed By: #### C BC ####[facility] Vqffrqybic9[address] [place], [place] [address]Dr. Tadeo Smyth Hemoglobin (Bld) [Mass/Vol] 11.1 g/dL Critically low 12.0-16.0 [facility] Comment on above: Performed By: #### C BC ####[facility] Ssivhzgpya[address] [place], [place] [address]Dr. Tadeo Smyth IG # 0.01 10e3/ul Normal 0.00-0.03 [facility] Comment on above: Performed By: #### C BC ####[facility] Snqyipqryr4974 [place] [address]Dr. Tdaeo Smyth IG % 0.2 % Normal 0.0-0.5 [facility] Comment on above: Performed By: #### C BC ####[facility] Llrkbmtfgl7752 [place] [address]DrNeo Smyth LYMPH # 1.5 103/ul Normal 1.2-3.8 [facility] Comment on above: Performed By: #### C BC ####[facility] Utkfjkurhg0439 [place] [address]DrNeo Smyth Lymphocytes/100 WBC (Bld) 29.9 % Normal 20.5-60.0 [facility] Comment on above: Performed By: #### C BC ####[facility] Sojcqitwqg58[address] [place], [place] [address]DrNeo Smyth MANUAL DIFF REQ NO Normal [facility] Comment on above: Performed By: #### C BC ####[facility] Kblcycgydd9283 [place] [address]DrNeo Smyth MCH (RBC) [Entitic mass] 29.3 pg Normal 26.7-34.0 [facility] Comment on above: Performed By: #### C BC ####[facility] Rqzsvpcupc0167 [place] [address]DrNeo Smyth MCHC (RBC) [Mass/Vol] 32.8 g/dL Normal 29.9-35.2 [facility] Comment on above: Performed By: #### C BC ####[facility] Uysykztruc6746 [place] [address]DrNeo Smyth MCV (RBC) [Entitic vol] 89.2 fL Normal 81.0-99.0 [facility] Comment on above: Performed By: #### C BC ####[facility] Ojzupejxne[address] [place], [place] [address]DrNeo Smyth MONO # 0.4 103/ul Normal 0.3-0.8 [facility] Comment on above: Performed By: #### C BC ####[facility] Xrjseetaga9327 [place] [address]Dr. Tadeo Smyth Monocytes/100 WBC (Bld) 7.8 % Normal 1.7-12.0 [facility] Comment on above: Performed By: #### C BC ####[facility] Apfjetashp4704 [place] [address]Dr. Tadeo Smyth NEUT # 2.8 103/ul Normal 1.4-6.5 [facility] Comment on above: Performed By: #### C BC ####[facility] Vwuyojhddl0133 [place] [address]Dr. Tadeo Smyth Neutrophils/100 WBC (Bld) 57.4 % Normal 43.0-75.0 [facility] Comment on above: Performed By: #### C BC ####[facility] Xnpwaiyvcq9299 [place] [address]Dr. Tadeo Smyth Platelet mean volume (Bld) [Entitic vol] 8.9 fL Critically low 9.5-13.5 [facility] Comment on above: Performed By: #### C BC ####[facility] Mwtzrslotl6970 [place] [address]Dr. Tadeo Smyth PLT 314 103/ul Normal 150-450 [facility] Comment on above: Performed By: #### C BC ####[facility] Unxihliasj5973 [place] [address]Dr. Tadeo Smyth RBC 3.79 106/ul Critically low 4.20-5.40 [facility] Comment on above: Performed By: #### C BC ####[facility] Mqttnwxpvt5871 [place] [address]DrNeo Tadeo Smyth WBC 4.9 103/ul Normal 4.0-11.0 [facility] Comment on above: Performed By: #### C BC ####[facility] Iphqripiyn2899 [place] [address]DrNeo Margotnicole Smyth PROF 14(COMP METB)on 022 Albumin [Mass/Vol] 2.8 g/dL Critically low 3.4-5.0 Th [facility] Comment on above: Performed By: #### C MP ####[facility] Xsghgdddhg8288 [place] [address]Dr. Margotnicole Haja Albumin/Globulin [Mass ratio] 0.8 {ratio} Normal [facility] Comment on above: Performed By: #### C MP ####[facility] Fsgeuwbvgx4426 [place] [address]Dr. Tadeo Smyth ALP [Catalytic activity/Vol] 117 U/L Critically high 46-116 [facility] Comment on above: Performed By: #### C MP ####[facility] Tanjxyrzsr[address] [place], [place] [address]Dr. Tadeo Smyth ALT [Catalytic activity/Vol] 13 U/L Critically low 14-59 [facility] Comment on above: Performed By: #### C MP ####[facility] Rrqsblwxhi9823[address] [place], [place] [address]Dr. Tadeo Smyth Anion gap [Moles/Vol] 8.7 mmol/L Normal [facility] Comment on above: Performed By: #### C MP ####[facility] Udlsyirzti96[address] [place], [place] [address]Dr. Tadeo Smyth AST [Catalytic activity/Vol] 12 U/L Critically low 15-37 [facility] Comment on above: Performed By: #### C MP ####[facility] Sksrguspmx[address] [place], [place] [address]Dr. Tadeo Smyth Bilirubin [Mass/Vol] 0.4 mg/dL Normal 0.2-1.0 [facility] Comment on above: Performed By: #### C MP ####[facility] Kvfmdbjdco5039[address] [place], [place] [address]Dr. Tadeo Smyth Calcium [Mass/Vol] 8.5 mg/dL Normal 8.5-10.1 [facility] Comment on above: Performed By: #### C MP ####[facility] Lyluujzpxh5[address] [place], [place] [address]Dr. Tadeo Smyth Chloride [Moles/Vol] 108 mmol/L Critically high 98-107 [facility] Comment on above: Performed By: #### C MP ####[facility] Bqkvuxvpbg8402 [place] [address]Dr. Tadeo Smyth CO2 [Moles/Vol] 28.0 mmol/L Normal 21.0-32.0 [facility] Comment on above: Performed By: #### C MP ####[facility] Asxhtdtpps8407 [place] [address]Dr. Tadeo Haja Creatinine [Mass/Vol] 0.74 mg/dL Normal 0.55-1.02 [facility] Comment on above: Performed By: #### C MP ####[facility] Oigyuhbkli7[address] [place], [place] [address]Dr. Margotnicole Haja EGFR-AF [place] >60 Normal >=60 [facility] Comment on above: Performed By: #### C MP ####[facility] Koibltazre[address] [place], [place] [address]Dr. Tadeo Smyth EGFR-NON AF [place] >60 Normal >=60 [facility] Comment on above: Performed By: #### C MP ####[facility] Dfvlpbakli101[address] [place], [place] [address]Dr. Tadeo Smyth Globulin (S) [Mass/Vol] 3.4 g/dL Normal [facility] Comment on above: Performed By: #### C MP ####[facility] Rlbbzjiqrl1718 [place] [address]Dr. Tadeo Smyth Glucose [Mass/Vol] 107 mg/dL Critically high 74-106 [facility] Comment on above: Performed By: #### C MP ####[facility] Wmjovakepp0153 [place] [address]Dr. Tadeo Smyth Potassium [Moles/Vol] 3.7 mmol/L Normal 3.5-5.1 [facility] Comment on above: Performed By: #### C MP ####[facility] Qkyhmkuxdl0965 [place] [address]Dr. Tadeo Smyth Protein [Mass/Vol] 6.2 g/dL Critically low 6.4-8.2 Th [facility] Comment on above: Performed By: #### C MP ####[facility] Wrvfufznaq9575 [place] [address]Dr. Tadeo Smyth Sodium [Moles/Vol] 141 mmol/L Normal 136-145 [facility] Comment on above: Performed By: #### C MP ####[facility] Uepaxhalql2824 [place] [address]Dr. Tadeo Smyth Urea nitrogen [Mass/Vol] 7.0 mg/dL Normal 7.0-18.0 [facility] Comment on above: Performed By: #### C MP ####[facility] Gejkspuhff2[address] [place], [place] [address]Dr. Tadeo Haja Urea nitrogen/Creatinine [Mass ratio] 9.5 mg/mg Normal [facility] Comment on above: Performed By: #### C MP ####[facility] Iclzieleqj4135[address] [place], [place] [address]Dr. Tadeo Haja XR KUB 1 VIEWon 03-29-2022 XR KUB 1 VIEW Normal [facility] CBC AUTO DIFFon 03-28-2022 BASO # 0.0 103/ul Normal 0.0-0.1 [facility] Comment on above: Performed By: #### C BC ####[facility] Gwtehkuiow15[address] [place], [place] [address]Dr. Tadeo Haja Basophils/100 WBC (Bld) 0.7 % Normal 0.2-2.0 [facility] Comment on above: Performed By: #### C BC ####[facility] Aehkgmepzn8428[address] [place], [place] [address]Dr. Tadeo Haja EO # 0.2 103/ul Normal 0.0-0.7 [facility] Comment on above: Performed By: #### C BC ####[facility] Yqjykbyixf175[address] [place], [place] [address]Dr. Tadeo Haja Eosinophils/100 WBC (Bld) 3.3 % Normal 0.9-7.0 [facility] Comment on above: Performed By: #### C BC ####[facility] Akteapmcwm733[address] [place], [place] [address]Dr. Tadeo Smyth Erythrocyte distribution width (RBC) [Ratio] 13.2 % Normal 11.0-15.0 [facility] Comment on above: Performed By: #### C BC ####[facility] Ljblvlimbq9791 [place] [address]Dr. Tadeo Smyth Hematocrit (Bld) [Volume fraction] 34.2 % Critically low 36.0-48.0 [facility] Comment on above: Performed By: #### C BC ####[facility] Arkxsvaiuq0162 [place] [address]Dr. Margotnicole Smyth Hemoglobin (Bld) [Mass/Vol] 10.8 g/dL Critically low 12.0-16.0 [facility] Comment on above: Performed By: #### C BC ####[facility] Sthnovwzhg14[address] [place], [place] [address]Dr. Tadeo Smyth IG # 0.01 10e3/ul Normal 0.00-0.03 [facility] Comment on above: Performed By: #### C BC ####[facility] Gmqetuuxhp13[address] [place], [place] [address]Dr. Tadeo Smyth IG % 0.2 % Normal 0.0-0.5 [facility] Comment on above: Performed By: #### C BC ####[facility] Zswemdpmtk[address] [place], [place] [address]Dr. Tadeo Smyth LYMPH # 1.3 103/ul Normal 1.2-3.8 [facility] Comment on above: Performed By: #### C BC ####[facility] Ksznmplzcv93[address] [place], [place] [address]Dr. Tadeo Smyth Lymphocytes/100 WBC (Bld) 28.4 % Normal 20.5-60.0 [facility] Comment on above: Performed By: #### C BC ####[facility] Djdebaydoe174[address] [place], [place] [address]Dr. Tadeo Smyth MANUAL DIFF REQ NO Normal [facility] Comment on above: Performed By: #### C BC ####[facility] Xvejkpfezd9850[address] [place], [place] [address]Dr. Tadeo Smyth MCH (RBC) [Entitic mass] 28.3 pg Normal 26.7-34.0 [facility] Comment on above: Performed By: #### C BC ####[facility] Hxkzhgshav4768 [place] [address]Dr. Tadeo Smyth MCHC (RBC) [Mass/Vol] 31.6 g/dL Normal 29.9-35.2 [facility] Comment on above: Performed By: #### C BC ####[facility] Ykdxnpjqvo4890 [place] [address]Dr. Tadeo Smyth MCV (RBC) [Entitic vol] 89.5 fL Normal 81.0-99.0 [facility] Comment on above: Performed By: #### C BC ####[facility] Pzgidfoahs5902 [place] [address]Dr. Tadeo Smyth MONO # 0.3 103/ul Normal 0.3-0.8 [facility] Comment on above: Performed By: #### C BC ####[facility] Locjbznthi9116 [place] [address]Dr. Tadeo Haja Monocytes/100 WBC (Bld) 5.5 % Normal 1.7-12.0 [facility] Comment on above: Performed By: #### C BC ####[facility] Xewemskktt4[address] [place], [place] [address]Dr. Tadeo Smyth NEUT # 2.8 103/ul Normal 1.4-6.5 [facility] Comment on above: Performed By: #### C BC ####[facility] Jioxyldwfj[address] [place], [place] [address]Dr. Tadeo Haja Neutrophils/100 WBC (Bld) 61.9 % Normal 43.0-75.0 [facility] Comment on above: Performed By: #### C BC ####[facility] Eatmytoyoj2[address] [place], [place] [address]Dr. Tadeo Smyth Platelet mean volume (Bld) [Entitic vol] 9.1 fL Critically low 9.5-13.5 [facility] Comment on above: Performed By: #### C BC ####[facility] Zxfedljvrl2260 [place] [id number]. Tadeo Smyth PLT 327 103/ul Normal 150-450 [facility] Comment on above: Performed By: #### C BC ####[facility] Yoxuektbva6396 [place] [phone]. Tadeo Smyth RBC 3.82 106/ul Critically low 4.20-5.40 [facility] Comment on above: Performed By: #### C BC ####[facility] Kvxnvmtope4755 [place] [phone]. Tadeo Smyth WBC 4.5 103/ul Normal 4.0-11.0 [facility] Comment on above: Performed By: #### C BC ####[facility] Zoaretqxug4756 [place] [address]Dr. Tadeo Haja POINT OF CARE GLUCOSEon 03-06 Glucose [Mass/Vol] 84 mg/dL Normal 74-106 [facility] Comment on above: Performed By: #### P OCGLUC ####[facility] Mkarejzlip4780 [place] [address]Dr. Tadeo Haja PROF 14(COMP METB)on 022 Albumin [Mass/Vol] 2.9 g/dL Critically low 3.4-5.0 [facility] Comment on above: Performed By: #### C MP ####[facility] Jcecckftxy8594 [place] [phone]. Tadeo Haja Albumin/Globulin [Mass ratio] 0.9 {ratio} Normal [facility] Comment on above: Performed By: #### C MP ####[facility] Zqoyijrteq2500 [place] [phone]. Tadeo Smyth ALP [Catalytic activity/Vol] 119 U/L Critically high 46-116 [facility] Comment on above: Performed By: #### C MP ####[facility] Kybgzwrrfe5897 [place] [address]Dr. Tadeo Smyth ALT [Catalytic activity/Vol] 15 U/L Normal 14-59 [facility] Comment on above: Performed By: #### C MP ####[facility] Hqildoflgt8695 [place] [phone]. Tadeo Smyth Anion gap [Moles/Vol] 7.9 mmol/L Normal [facility] Comment on above: Performed By: #### C MP ####[facility] Huufakcqcr1782 [place] [address]Dr. Tadeo Smyth AST [Catalytic activity/Vol] 11 U/L Critically low 15-37 [facility] Comment on above: Performed By: #### C MP ####[facility] Gkmlomgtzt5135 [place] [address]Dr. Tadeo Smyth Bilirubin [Mass/Vol] 0.4 mg/dL Normal 0.2-1.0 [facility] Comment on above: Performed By: #### C MP ####[facility] Nsksqgmpkf4788 [place] [address]Dr. Tadeo Smyth Calcium [Mass/Vol] 8.7 mg/dL Normal 8.5-10.1 [facility] Comment on above: Performed By: #### C MP ####[facility] Byrhfjcjrb[address] [place], [place] [address]Dr. Tadeo Smyth Chloride [Moles/Vol] 109 mmol/L Critically high 98-107 [facility] Comment on above: Performed By: #### C MP ####[facility] Murismoefp[address] [place], [place] [address]Dr. Tadeo Smyth CO2 [Moles/Vol] 27.9 mmol/L Normal 21.0-32.[address] [facility] Comment on above: Performed By: #### C MP ####[facility] Gzbsnytvln3137 [place] [address]Dr. Tadeo Smyth Creatinine [Mass/Vol] 0.75 mg/dL Normal 0.55-1.02 [facility] Comment on above: Performed By: #### C MP ####[facility] Nezpxwqxpg[address] [place], [place] [address]Dr. Tadeo Haja EGFR-AF [place] >60 Normal >=[address] [facility] Comment on above: Performed By: #### C MP ####[facility] F[address]vmkbnpvn[address] [place], [place] [id number]. Tadeo Smyth EGFR-NON AF [place] >60 Normal >=60 [facility] Comment on above: Performed By: #### C MP ####[facility] [address] [place] [address]Dr. Tadeo Smyth Globulin (S) [Mass/Vol] 3.3 g/dL Normal [facility] Comment on above: Performed By: #### C MP ####[facility] Iiunujuxuo[address] [place], [place] [address]Dr. Tadeo Smyth Glucose [Mass/Vol] 95 mg/dL Normal 74-106 [facility] Comment on above: Performed By: #### C MP ####[facility] Pyjjoxiukd[address] [place], [place] [address]Dr. Tadeo Smyth Potassium [Moles/Vol] 3.8 mmol/L Normal 3.5-5.1 [facility] Comment on above: Performed By: #### C MP ####[facility] Izgfhcsads[address] [place], [place] [address]Dr. Tadeo Smyth Protein [Mass/Vol] 6.2 g/dL Critically low 6.4-8.2 Th [facility] Comment on above: Performed By: #### C MP ####[facility] Jzodufvski[address] [place], [place] [address]Dr. Tadeo Smyth Sodium [Moles/Vol] 141 mmol/L Normal 136-145 [facility] Comment on above: Performed By: #### C MP ####[facility] Svqqsitwzl[address] [place], [place] [address]Dr. Tadeo Smyth Urea nitrogen [Mass/Vol] 8.0 mg/dL Normal 7.0-18.0 [facility] Comment on above: Performed By: #### C MP ####[facility] Swqjdtvwae[address] [place], [place] [address]Dr. Tadeo Smyth Urea nitrogen/Creatinine [Mass ratio] 10.7 mg/mg Normal [facility] Comment on above: Performed By: #### C MP ####[facility] Ltmljqfrcx772[address] [place], [place] [address]Dr. Tadeo Smyth UA (CLEAN/CATCH) FREELANCE PROGRAMMER/APP DEVELOPER/MICRO I F IND.on 03-28-2022 Bilirubin Ql (U) Negative Normal NEGATIVE [facility] Comment on above: Performed By: #### U ACSBLANE UMICRO ####[facility] Jgogzmswvp[address] [place] [address]Dr. Tadeo Smyth Clarity (U) SL CLOUDY Abnormal CLEAR [facility] Comment on above: Performed By: #### U ACSBLANE UMICRO ####[facility] A[address]evzlbwdp[address] [place] [address]Dr. Tadeo Smyth Color (U) LT. YELLOW Normal YELLOW The [facility] Comment on above: Performed By: #### U ACSBLANE UMICRO ####[facility] Qfhgaoukai[address] [place] [address]Dr. Tadeo Smyth Glucose Ql (U) Negative Normal NEGATIVE [facility] Comment on above: Performed By: #### U ACSBLANE UMICRO ####[facility] Ppfurhryyy[address] [place], [place] [address]Dr. Tadeo Smyth Hemoglobin Ql (U) TRACE-INTACT Abnormal NEGATIVE [facility] Comment on above: Performed By: #### U ACSBLANE ICRO ####[facility] Wudwbfdmcl[address] [place], [place] [address]Dr. Tadeo Smyth Ketones Ql (U) TRACE Abnormal NEGATIVE [facility] Comment on above: Performed By: #### U ACSBLANE UMICRO ####[facility] Qutdapjmgk[address] [place], [place] [address]Dr. Tadeo Smyth LEUKOCYTES Negative Normal NEGATIVE The [facility] Comment on above: Performed By: #### U ACSBLANE ICRO ####[facility] Nnkgsxjagi3335[address] [place], [place] [address]Dr. Tadeo Smyth Nitrite Ql (U) Negative Normal NEGATIVE The [facility] Comment on above: Performed By: #### U ACSBLANE UMICRO ####[facility] [address]lnerpw[address] [place] [address]Dr. Tadeo Smyth pH (U) 6.5 [pH] Normal 5-9 [facility] Comment on above: Performed By: #### U ACSBLANE, UMICRO ####[facility] [address]wo[address] [place] [address]Dr. Tadeo Haja SPEC GRAVITY 1.015 Normal 1.005-<=1.[address] [place] [address] Comment on above: Performed By: #### U ACSBLANE, UMICRO ####[facility] Wy[address]ozxw[address] [place] [address]Dr. Tadeo Smyth UA PROTEIN Negative Normal NEGATIVE/ TRACE The [facility] Comment on above: Performed By: #### U ACSBLANE, UMICRO ####[facility] Mkujjilsqs[address] [place] [address]Dr. Tadeo Smyth UR MICRO IND INDICATED Normal The [facility] Comment on above: Performed By: #### U ACSBLANE, UMICRO ####[facility] Wqyyanmtwy[address] [place], [place] [address]Dr. Tadeo Smyth Urobilinogen Qn (U) 0.2 {Benito'U}/dL Normal 0.2 - 1. 0 [facility] Comment on above: Performed By: #### U ACSBLANE, ICRO ####[facility] Hsohowmgsh1869[address] [place], [place] [address]Dr. Tadeo Smyth URINE MICROSCOPIC ONLYon BACTERIA MODERATE Abnormal NONE SEEN The [facility] Comment on above: Performed By: #### U ACSBLANE, UMICRO ####[facility] Vxfzfhgxun[address] [place], [place] [address]Dr. Tadeo Smyth Bacteria identified Cx Nom (U) INDICATED Normal The [facility] Comment on above: Performed By: #### U ACSBLANE, UMICRO ####[facility] Dmpomwabde13[address] [place], [place] [address]Dr. Tadeo Smyth CAST NONE SEEN Normal NONE SEEN The [facility] Comment on above: Performed By: #### U ACSBLANE, UMICRO ####[facility] T[address] [place] [address]Dr. Tadeo Smyth Crystals LM Nom (Urine sed) NONE SEEN Normal NONE SEEN The [facility] Comment on above: Performed By: #### U ACSBLANE, UMICRO ####[facility] [address] [place] [id number]. Tadeo Smyth Epithelial cells LM Ql (Urine sed) RARE Normal NONE SEEN /RARE The [facility] Comment on above: Performed By: #### U ACSBLANE UMICRO ####[facility] Ol[address] [place] [id number]. Tadeo Smyth MUCOUS NONE SEEN Normal NONE SEEN The [facility] Comment on above: Performed By: #### U ACSBLANE, UMICRO ####[facility] Ubc[address]xmqq[address] [place] [address]Dr. Tadeo Smyth RBC NONE SEEN Abnormal 0-2 The [facility] Comment on above: Performed By: #### U ACSBLANE ICRO ####[facility] Eydyplwksi[address] [place] [address]Dr. Tadeo Smyth WBC 2-5 Abnormal NONE SEEN The [facility] Comment on above: Performed By: #### U [facility] ####[facility] Xyynnyijnm[address] [place], [place] [address]Dr. Tadeo Smyth XR ABD FLAT UP_PA Kasey 03-28 XR ABD FLAT UP_PA CH Normal The [facility] CBC AUTO DIFFon 03-27-2022 BASO # 0.0 103/ul Normal 0.0-0.1 The [facility] Comment on above: Performed By: #### C BC ####[facility] Occrrlgmhy[address] [place], [place] [address]Dr. Tadeo Smyth Basophils/100 WBC (Bld) 0.5 % Normal 0.2-2.0 The [facility] Comment on above: Performed By: #### C BC ####[facility] Wjarlibomv[address] [place], [place] [address]Dr. Tadeo Smyth EO # 0.2 103/ul Normal 0.0-0.7 The [facility] Comment on above: Performed By: #### C BC ####[facility] Qktaplssjj[address] [place], [place] [address]Dr. Tadeo Smyth Eosinophils/100 WBC (Bld) 3.2 % Normal 0.9-7.0 [facility] Comment on above: Performed By: #### C BC ####[facility] Wsuztlfutx[address] [place] [address]Dr. Tadeo Smyth Erythrocyte distribution width (RBC) [Ratio] 13.1 % Normal 11.0-15.0 [facility] Comment on above: Performed By: #### C BC ####[facility] B[address]wovhctz[address] [place] [address]Dr. Tadeo Smyth Hematocrit (Bld) [Volume fraction] 34.8 % Critically low 36.0-48.0 The [facility] Comment on above: Performed By: #### C BC ####[facility] Swekgrxexl[address] [place], [place] [address]Dr. Tadeo Haja Hemoglobin (Bld) [Mass/Vol] 11.3 g/dL Critically low 12.0-16.0 [facility] Comment on above: Performed By: #### C BC ####[facility] Ijihooucse[address] [place], [place] [address]Dr. Tadeo Haja IG # 0.01 10e3/ul Normal 0.00-0.03 The [facility] Comment on above: Performed By: #### C BC ####[facility] Nivfhocfbm[address] [place], [place] [address]Dr. Margotnicole Smyth IG % 0.2 % Normal 0.0-0.5 The [facility] Comment on above: Performed By: #### C BC ####[facility] Tgynbztcvo[address] [place], [place] [address]Dr. Tadeo Smyth LYMPH # 1.6 103/ul Normal 1.2-3.8 The [facility] Comment on above: Performed By: #### C BC ####[facility] Ujqljrqnhd[address] [place], [place] [address]Dr. Tadeo Smyth Lymphocytes/100 WBC (Bld) 29.1 % Normal 20.5-60.0 The [facility] Comment on above: Performed By: #### C BC ####[facility] Bhjlffvmnl[address] [place], [place] [address]Dr. Tadeo Smyth MANUAL DIFF REQ NO Normal [facility] Comment on above: Performed By: #### C BC ####[facility] Jos[address]etyzti[address] [place] [address]DrNeo Tadeo Haja MCH (RBC) [Entitic mass] 29.1 pg Normal 26.7-34.0 [facility] Comment on above: Performed By: #### C BC ####[facility] Urqbqiddcs[address] [place] [address]DrNeo Smyth MCHC (RBC) [Mass/Vol] 32.5 g/dL Normal 29.9-35.2 [facility] Comment on above: Performed By: #### C BC ####[facility] Fasockiltr[address] [place] [address]DrNeo Smyth MCV (RBC) [Entitic vol] 89.7 fL Normal 81.0-99.0 [facility] Comment on above: Performed By: #### C BC ####[facility] Pzqwpctprv[address] [place], [place] [address]DrNeo Smyth MONO # 0.3 103/ul Normal 0.3-0.8 [facility] Comment on above: Performed By: #### C BC ####[facility] Cfjxsecrgd[address] [place], [place] [address]DrNeo Smyth Monocytes/100 WBC (Bld) 5.7 % Normal 1.7-12.0 The [facility] Comment on above: Performed By: #### C BC ####[facility] Ngrcyzywmf[address] [place], [place] [address]DrNeo Smyth NEUT # 3.5 103/ul Normal 1.4-6.5 The [facility] Comment on above: Performed By: #### C BC ####[facility] Sjwoikryti[address] [place], [place] [address]DrNeo Smyth Neutrophils/100 WBC (Bld) 61.3 % Normal 43.0-75.0 The [facility] Comment on above: Performed By: #### C BC ####[facility] N[address]nnqxrxt[address] [place], [place] [address]DrNeo Smyth Platelet mean volume (Bld) [Entitic vol] 9.1 fL Critically low 9.5-13.5 The [facility] Comment on above: Performed By: #### C BC ####[facility] F[address] [place], [place] [address]Nk. Tadeo Smyth PLT 355 103/ul Normal 150-450 [facility] Comment on above: Performed By: #### C BC ####[facility] Pfswatnnpj83[address] [place], [place] [address]Sw. Tadeo Smyth RBC 3.88 106/ul Critically low 4.20-5.40 [facility] Comment on above: Performed By: #### C BC ####[facility] Wwrkwaujkf8126 [place], [place] [address]Uq. Tadeo Smyth WBC 5.6 103/ul Normal 4.0-11.0 The [facility] Comment on above: Performed By: #### C BC ####[facility] Ugjrgsedrg1124 [place], [place] [address]Qi. Tadeo Smy[address] CT ABD/PELV W CONon 03-27-20 CT ABD/PELV W CON Normal [facility] CT ABD/PELVIS WO CONon 03-27 CT ABD/PELVIS WO CON Normal The [facility] Covid-19 PCR ([facility])on 03-06 SARS-CoV-2 (COVID-19) RNA CHEN+probe Ql (Unsp spec) Not detected Normal NOT DETECTED The [facility] Comment on above: Result Comment: When [...] for this test is supported by the [place] of Health and Human Service's declaration that [...] be used). Performed By: #### C VDTB ####[facility] Lkkwyefmbi[address] [place], [place] [address]Dr. Tadeo Smyth ER URINE PROFILEon 2 Bilirubin Ql (U) Negative Normal NEGATIVE The [facility] Comment on above: Performed By: #### E RUR, PREGU ####[facility] Cemytghxwb[address] [place], [place] [address]Dr. Tadeo Smyth Clarity (U) CLEAR Normal CLEAR The [facility] Comment on above: Performed By: #### E RUR, PREGU ####[facility] Qiyofrppgq[address] [place], [place] [address]Dr. Tadeo Smyth Color (U) LT. YELLOW Normal YELLOW The [facility] Comment on above: Performed By: #### E RUR, PREGU ####[facility] Qspofmkvqw[address] [place], [place] [address]Dr. Tadeo Smyth ERUAHD A micrscopic examina tion will be performed if indicated. Normal The [facility] Comment on above: Performed By: #### E RUR, PREGU ####[facility] Voeravtnxo[address] [place], [place] [address]Dr. Tadeo Smyth Glucose Ql (U) Negative Normal NEGATIVE The [facility] Comment on above: Performed By: #### E RUR, PREGU ####[facility] Ntdjmaocnm[address] [place], [place] [address]Dr. Tadeo Smyth Hemoglobin Ql (U) SMALL Abnormal NEGATIVE [facility] Comment on above: Performed By: #### E RUR, PREGU ####[facility] Irwjgheubf[address] [place], [place] [address]Dr. Tadeo Smyth Ketones Ql (U) TRACE Abnormal NEGATIVE The [facility] Comment on above: Performed By: #### E RUR, PREGU ####[facility] Llplkmslpc[address] [place], [place] [address]Dr. Tadeo Smyth LEUKOCYTES Negative Normal NEGATIVE The [facility] Comment on above: Performed By: #### E RUR, PREGU ####[facility] Swfmzgbuqv[address] [place], [place] [address]Dr. Tadeo Smyth Nitrite Ql (U) Negative Normal NEGATIVE The [facility] Comment on above: Performed By: #### E RUR, PREGU ####[facility] W[address]vaqlszwx[address] [place] [address]Dr. Margotnicole Smyth pH (U) 6.0 [pH] Normal 5-9 The [facility] Comment on above: Performed By: #### E RUR, PREGU ####[facility] Qczrzzxaxs[address] [place], [place] [address]Dr. Tadeo Smyth SPEC GRAVITY >=1.030 Abnormal 1.005-<=1.0 25 [facility] Comment on above: Performed By: #### E RUR, PREGU ####[facility] Gazhhuveob[address] [place], [place] [address]Dr. Tadeo Smyth UA PROTEIN Negative Normal NEGATIVE/ TRACE The [facility] Comment on above: Performed By: #### E RUR, PREGU ####[facility] Ithkzyybcr[address] [place], [place] [address]Dr. Margotnicole Smyth UR MICRO IND NOT INDICATED Normal [facility] Comment on above: Performed By: #### E RUR, PREGU ####[facility] Mqucbhefmn[address] [place], [place] [address]Dr. Margotnicole Smyth Urobilinogen Qn (U) 0.2 {Benito'U}/dL Normal 0.2 - 1. 0 The [facility] Comment on above: Performed By: #### E RUR, PREGU ####[facility] Bvyaqbwuev[address] [place], [place] [address]Dr. Margotnicole Smyth LIPASEon 03-27-2022 Lipase [Catalytic activity/Vol] 126.0 U/L Normal 73.0-393.0 The [facility] Comment on above: Performed By: #### L IPA, CMP ####[facility] Wdxmlozmjw[address] [place], [place] [address]Dr. Tadeo Smyth URon 03-27-2022 , QUAL Negative Normal NEGATIVE [facility] Comment on above: Performed By: #### E RUR, PREGU ####[facility] Ixrmtqynsa[address] [place] [address]Dr. Tadeo Smyth PROF 14(COMP METB)on 022 Albumin [Mass/Vol] 3.6 g/dL Normal 3.4-5.0 [facility] Comment on above: Performed By: #### L IPA, CMP ####[facility] Cxjntdaqyn7[address] [place] [address]Dr. Tadeo Smyth Albumin/Globulin [Mass ratio] 1.1 {ratio} Normal [facility] Comment on above: Performed By: #### L IPA, CMP ####[facility] Pwavlpthuj[address] [place], [place] [address]Dr. Tadeo Smyth ALP [Catalytic activity/Vol] 139 U/L Critically high 46-116 [facility] Comment on above: Performed By: #### L IPA, CMP ####[facility] Fapbimqkir[address] [place], [place] [address]Dr. Tadeo Smyth ALT [Catalytic activity/Vol] 18 U/L Normal 14-59 [facility] Comment on above: Performed By: #### L IPA, CMP ####[facility] Mlycycbzpl[address] [place], [place] [address]Dr. Tadeo Smyth Anion gap [Moles/Vol] 10.7 mmol/L Normal [facility] Comment on above: Performed By: #### L IPA, CMP ####[facility] Fdxkwmqtej214[address] [place], [place] [address]Dr. Tadeo Smyth AST [Catalytic activity/Vol] 11 U/L Critically low 15-37 [facility] Comment on above: Performed By: #### L IPA, CMP ####[facility] Nanjsvpnxz[address] [place], [place] [address]Dr. Tadeo Smyth Bilirubin [Mass/Vol] 0.2 mg/dL Normal 0.2-1.0 [facility] Comment on above: Performed By: #### L IPA, CMP ####[facility] Txrsocmpif[address] [place], [place] [address]Dr. Tadeo Smyth Calcium [Mass/Vol] 9.0 mg/dL Normal 8.5-10.1 [facility] Comment on above: Performed By: #### L IPA, CMP ####[facility] Oefeewyyvr[address] [place], [place] [address]Dr. Tadeo Smyth Chloride [Moles/Vol] 106 mmol/L Normal 98-107 [facility] Comment on above: Performed By: #### L IPA, CMP ####[facility] Rydugzflef[address] [place], [place] [address]Dr. Tadeo Smyth CO2 [Moles/Vol] 26.9 mmol/L Normal 21.0-32.[address] [facility] Comment on above: Performed By: #### L IPA, CMP ####[facility] Eaaivgxmrf[address] [place], [place] [address]Dr. Tadeo Smyth Creatinine [Mass/Vol] 0.84 mg/dL Normal 0.55-1.02 [facility] Comment on above: Performed By: #### L IPA, CMP ####[facility] Fkwzkxhkxv[address] [place], [place] [address]Dr. Tadeo Haja EGFR-AF [place] >60 Normal >=[address] [facility] Comment on above: Performed By: #### L IPA, CMP ####[facility] Myvidgxrzu98[address] [place], [place] [address]Dr. Margotnicole Haja EGFR-NON AF [place] >60 Normal >=60 The [facility] Comment on above: Performed By: #### L IPA, CMP ####[facility] Sqremkpopd[address] [place], [place] [address]Dr. Margotnicole Smyth Globulin (S) [Mass/Vol] 3.4 g/dL Normal [facility] Comment on above: Performed By: #### L IPA, CMP ####[facility] Hxkjhmpvla[address] [place], [place] [address]Dr. Tadeo Smyth Glucose [Mass/Vol] 96 mg/dL Normal 74-106 [facility] Comment on above: Performed By: #### L IPA, CMP ####[facility] Xnufzqboyo[address] [place], [place] [address]Dr. Tadeo Smyth Potassium [Moles/Vol] 3.6 mmol/L Normal 3.5-5.1 [facility] Comment on above: Performed By: #### L IPA, CMP ####[facility] Qwthvbivgh[address] [place], [place] [address]Dr. Tadeo Smyth Protein [Mass/Vol] 7.0 g/dL Normal 6.4-8.2 [facility] Comment on above: Performed By: #### L IPA, CMP ####[facility] Yiteswqpgy[address] [place], [place] [address]Dr. Tadeo Smyth Sodium [Moles/Vol] 140 mmol/L Normal 136-145 [facility] Comment on above: Performed By: #### L IPA, CMP ####[facility] Mwvduawcor[address] [place], [place] [address]Dr. Tadeo Smyth Urea nitrogen [Mass/Vol] 23.0 mg/dL Critically high 7.0-18.0 [facility] Comment on above: Performed By: #### L IPA, CMP ####[facility] Ixyfcscrci7[address] [place], [place] [address]Dr. Tadeo Smyth Urea nitrogen/Creatinine [Mass ratio] 27.4 mg/mg Normal [facility] Comment on above: Performed By: #### L IPA, CMP ####[facility] Cutzvuxqxx[address] [place], [place] [address]Dr. Tadeo Haja GROUP A STREP CULTUREon 0 S. pyogenes Ag Ql (Unsp spec) Normal [facility] Comment on above: Performed By: #### G RASTCX, SSCRN ####[facility] Thggcsthmc[address] [place], [place] [address]Dr. Tadeo Haja AMYLASEon 02-02-2022 Amylase [Catalytic activity/Vol] 37 U/L Normal 25-115 [facility] Comment on above: Performed By: #### C MP, VIJI, LIPA ####[facility] Q[address]philujvp[address] [place], [place] [address]Dr. Tadeo Smyth CBC AUTO DIFFon 02-02-2022 BASO # 0.0 103/ul Normal 0.0-0.1 [facility] Comment on above: Performed By: #### C BC ####[facility] [address] [place] [id number]. Tadeo Smyth Basophils/100 WBC (Bld) 0.2 % Normal 0.2-2.0 [facility] Comment on above: Performed By: #### C BC ####[facility] [address] [place] [id number]. Tadeo Smyth EO # 0.0 103/ul Normal 0.0-0.7 [facility] Comment on above: Performed By: #### C BC ####[facility] Umzxexphea[address] [place] [id number]. Tadeo Smyth Eosinophils/100 WBC (Bld) 0.2 % Critically low 0.9-7.0 [facility] Comment on above: Performed By: #### C BC ####[facility] [address] [place], [place] [address]Dr. Tadeo Smyth Erythrocyte distribution width (RBC) [Ratio] 13.4 % Normal 11.0-15.0 [facility] Comment on above: Performed By: #### C BC ####[facility] I[address] [place], [place] [address]Dr. Tadeo Smyth Hematocrit (Bld) [Volume fraction] 36.8 % Normal 36.0-48.0 [facility] Comment on above: Performed By: #### C BC ####[facility] [address] [place], [place] [id number]. Tadeo Smyth Hemoglobin (Bld) [Mass/Vol] 11.6 g/dL Critically low 12.0-16.0 The [facility] Comment on above: Performed By: #### C BC ####[facility] Fos[address] [place], [place] [address]Dr. Tadeo Smyth IG # 0.08 10e3/ul Critically high 0.00-0.03 [facility] Comment on above: Performed By: #### C BC ####[facility] [address] [place] [id number]. Tadeo Smyth IG % 0.6 % Critically high 0.0-0.5 [facility] Comment on above: Performed By: #### C BC ####[facility] Pkuvrcqokx6394 [place] [id number] Smyth LYMPH # 0.9 103/ul Critically low 1.2-3.[address] [facility] Comment on above: Performed By: #### C BC ####[facility] Tztbumuvik[address] [place] [phone]. Tadeo Smyth Lymphocytes/100 WBC (Bld) 6.9 % Critically low 20.5-60.0 [facility] Comment on above: Performed By: #### C BC ####[facility] Qbdgscjjus[address] [place] [id number] Smyth MANUAL DIFF REQ NO Normal [facility] Comment on above: Performed By: #### C BC ####[facility] Diywrrkcmh7[address] [place] [phone]. Tadeo Smyth MCH (RBC) [Entitic mass] 28.9 pg Normal 26.7-34.0 [facility] Comment on above: Performed By: #### C BC ####[facility] [address]uioc[address]yix[address] [place] [phone]. Tadeo Smyth MCHC (RBC) [Mass/Vol] 31.5 g/dL Normal 29.9-35.2 [facility] Comment on above: Performed By: #### C BC ####[facility] Oqxkjcmmva[address]309 [place] [phone] Smyth MCV (RBC) [Entitic vol] 91.8 fL Normal 81.0-99.0 [facility] Comment on above: Performed By: #### C BC ####[facility] Wnnfjehbol[address] [place] [phone] Smyth MONO # 0.9 103/ul Critically high 0.3-0.8 [facility] Comment on above: Performed By: #### C BC ####[facility] Fnzgnyetir4515 [place] [phone] Smyth Monocytes/100 WBC (Bld) 6.9 % Normal 1.7-12.0 [facility] Comment on above: Performed By: #### C BC ####[facility] Pilhxlsgbt[address] [place] [phone]. Tadeo Smyth NEUT # 11.6 103/ul Critically high 1.4-6.5 [facility] Comment on above: Performed By: #### C BC ####[facility] Ftothbfczf0538 [place] [phone]. Tadeo Smyth Neutrophils/100 WBC (Bld) 85.2 % Critically high 43.0-75.0 The [facility] Comment on above: Performed By: #### C BC ####[facility] Mqofofmhzc8468 [place] [phone]. Tadeo Smyth Platelet mean volume (Bld) [Entitic vol] 8.9 fL Critically low 9.5-13.5 The [facility] Comment on above: Performed By: #### C BC ####[facility] Mposlyixai[address] [place] [phone]. Tadeo Smyth PLT 331 103/ul Normal 150-450 The [facility] Comment on above: Performed By: #### C BC ####[facility] Mtykphjdog5776 [place] [phone]. Tadeo Smyth RBC 4.01 106/ul Critically low 4.20-5.40 [facility] Comment on above: Performed By: #### C BC ####[facility] Pczyliyaxx66[address] [place] [phone]. Tadeo Smyth WBC 13.7 103/ul Critically high 4.0-11.[address] [facility] Comment on above: Performed By: #### C BC ####[facility] Krfffwyhwb3722 [place] [phone]. Tadeo Smyth Covid-19 PCR ([facility])on 01-05 SARS-CoV-2 (COVID-19) RNA CHEN+probe Ql (Unsp spec) Not detected Normal NOT DETECTED The [facility] Comment on above: Result Comment: When [...] for this test is supported by the Instructional Leader of Health and Human Service's declaration that [...] be used). Performed By: #### C VDTBH ####[facility] [address] [place], [place] [address]DrNeo Smyth LIPASEon 02-02-2022 Lipase [Catalytic activity/Vol] 33.0 U/L Critically low 73.0-393.0 [facility] Comment on above: Performed By: #### C MP VIJI, LIPA ####[facility] [address] [place], [place] [address]DrNeo Smyth MONOon 02-02-2022 Monocytes (Bld) [#/Vol] Negative Normal NEGATIVE [facility] Comment on above: Performed By: #### M JESSICA ####[facility] B[address] [place], [place] [address]DrNeo Smyth PROF 14(COMP METB)on 022 Albumin [Mass/Vol] 3.1 g/dL Critically low 3.4-5.0 Th e [facility] Comment on above: Performed By: #### C MP, VIJI, LIPA ####[facility] Symq[address] [place], [place] [address]DrNeo Smyth Albumin/Globulin [Mass ratio] 0.9 {ratio} Normal The [facility] Comment on above: Performed By: #### C MP, VIJI, LIPA ####[facility] [address] [place] [address]DrNeo Smyth ALP [Catalytic activity/Vol] 131 U/L Critically high 46-116 [facility] Comment on above: Performed By: #### C VIJI GARCIA LIPA ####[facility] Tzp[address]osvq[address] [place] [address]Dr. Tadeo Smyth ALT [Catalytic activity/Vol] 25 U/L Normal 14-59 [facility] Comment on above: Performed By: #### C VIJI GARCIA, LIPA ####[facility] Jqse[address]sf[address] [place] [address]Dr. Tadeo Smyth Anion gap [Moles/Vol] 10.0 mmol/L Normal Th [facility] Comment on above: Performed By: #### C VIJI GARCIA LIPA ####[facility] Esl[address]fl[address] [place] [address]Dr. Tadeo Smyth AST [Catalytic activity/Vol] 19 U/L Normal 15-37 [facility] Comment on above: Performed By: #### C VIJI GARCIA LIPA ####[facility] [address]un[address] [place] [address]Dr. Tadeo Smyth Bilirubin [Mass/Vol] 0.6 mg/dL Normal 0.2-1.0 [facility] Comment on above: Performed By: #### C VIJI GARCIA LIPA ####[facility] Rtr[address]llinm[address] [place] [address]Dr. Tadeo Smyth Calcium [Mass/Vol] 8.2 mg/dL Critically low 8.5-10.1 [facility] Comment on above: Performed By: #### C VIJI GARCIA, LIPA ####[facility] L[address] [place] [address]Dr. Tadeo Smyth Chloride [Moles/Vol] 106 mmol/L Normal 98-107 [facility] Comment on above: Performed By: #### C VIJI GARCIA, LIPA ####[facility] Mhxyh[address]lq[address] [place] [address]Dr. Tadeo Smyth CO2 [Moles/Vol] 25.5 mmol/L Normal 21.0-32.[address] [facility] Comment on above: Performed By: #### C JOSE VIJI LIPA ####[facility] L[address]rcxfqk[address] [place] [address]Dr. Tadeo Smyth Creatinine [Mass/Vol] 0.78 mg/dL Normal 0.55-1.02 The [facility] Comment on above: Performed By: #### C MP, VIJI, LIPA ####[facility] Idfevvunyt[address]407 [place] [phone]. Tadeo Smyth EGFR-AF [place] >60 Normal >=[address] [facility] Comment on above: Performed By: #### C MP, VIJI, LIPA ####[facility] [address] [place] [address]Dr. Tadeo Smyth EGFR-NON AF [place] >60 Normal >=60 [facility] Comment on above: Performed By: #### C MP, VIJI, LIPA ####[facility] U[address] [place] [address]Dr. Tadeo Smyth Globulin (S) [Mass/Vol] 3.6 g/dL Normal [facility] Comment on above: Performed By: #### C MP, VIJI, LIPA ####[facility] Qpxeuhmrzf[address] [place] [address]Dr. Tadeo Smyth Glucose [Mass/Vol] 110 mg/dL Critically high 74-106 [facility] Comment on above: Performed By: #### C MP, VIJI, LIPA ####[facility] Zyvcvfoqbj[address] [place] [address]Dr. Tadeo Smyth Potassium [Moles/Vol] 3.5 mmol/L Normal 3.5-5.1 [facility] Comment on above: Performed By: #### C MP, VIJI, LIPA ####[facility] [address] [place] [address]Dr. Tadeo Smyth Protein [Mass/Vol] 6.7 g/dL Normal 6.4-8.2 [facility] Comment on above: Performed By: #### C MP, VIJI, LIPA ####[facility] Gapwbftqif[address] [place] [address]Dr. Tadeo Smyth Sodium [Moles/Vol] 138 mmol/L Normal 136-145 [facility] Comment on above: Performed By: #### C MP, VIJI, LIPA ####[facility] Uc[address]yfpvf20[address] [place] [address]Dr. Tadeo Smyth Urea nitrogen [Mass/Vol] 11.0 mg/dL Normal 7.0-18.0 [facility] Comment on above: Performed By: #### C MP, VIJI, LIPA ####[facility] Cfcfcuuaum[address]36 [place] [phone]. Tadeo Smyth Urea nitrogen/Creatinine [Mass ratio] 14.1 mg/mg Normal [facility] Comment on above: Performed By: #### C MP, VIJI, LIPA ####[facility] Qof[address]vx[address] [place] [address]Dr. Tadeo Smyth STREPT SCREENon 02-02-2022 STREP SCREEN A Negative Normal NEGATIVE [facility] Comment on above: Performed By: #### G RASTCX, SSCRN ####[facility] Oz[address]xskg[address] [place] [address]Dr. Tadeo Smyth BASIC METABOLIC PANELon 08-05 Calcium [Mass/Vol] 8.4 mg/dL Low 8.6-10.3 [facility] Comment on above: Order Comment: No: D o not add to previous draw Performed By: #### 3 103, 35138 #### [facility] [address] [place] [address], [facility] Chloride [Moles/Vol] 108 mmol/L High 98-107 [facility] Comment on above: Order Comment: No: D o not add to previous draw Performed By: #### 3 711, 92968 #### [facility] [address] [place] [address], [place] CO2 [Moles/Vol] 26 mmol/L Normal - [facility] Comment on above: Order Comment: No: D o not add to previous draw Performed By: #### 3 646, 62946 #### [facility] [address] [place] [address], [place] Creatinine [Mass/Vol] 0.79 mg/dL Normal 0.60-1.20 [facility] Comment on above: Order Comment: No: D o not add to previous draw Performed By: #### 3 574, 62989 #### [facility] [address] [place] [address], [place] GFR/1.73 sq M predicted among blacks MDRD (S/P/Bld) [Vol rate/Area] mL/min/{1.73_m2} Normal >60 [facility] Comment on above: Order Comment: No: D o not add to previous draw Performed By: #### 3 848, 87615 #### [facility] [address] [place] [address], [place] GFR/1.73 sq M predicted among non-blacks MDRD (S/P/Bld) [Vol rate/Area] mL/min/{1.73_m2} Normal >60 [facility] Comment on above: Order Comment: No: D o not add to previous draw Performed By: #### 3 779, 78318 #### [facility] [address] [place] [address], [place] Glucose [Mass/Vol] 98 mg/dL Normal 70-100 [facility] Comment on above: Order Comment: No: D o not add to previous draw Performed By: #### 3 871, 29489 #### [facility] [address] [place] [address], [place] Potassium [Moles/Vol] 3.5 mmol/L Normal 3.5-5.1 [facility] Comment on above: Order Comment: No: D o not add to previous draw Performed By: #### 3 039, 58957 #### [facility] [address] [place] [address], [place] Sodium [Moles/Vol] 139 mmol/L Normal 136-145 [facility] Comment on above: Order Comment: No: D o not add to previous draw Performed By: #### 3 6901, 48687 #### [facility] [address] Urea nitrogen [Mass/Vol] 11 mg/dL Normal 7-25 [facility] Comment on above: Order Comment: No: D o not add to previous draw Performed By: #### 3 6901, 27971 #### [facility] [address] BLOOD STOOL GUAIACon 019 BLD STOOL GUAIAC Negative Normal NEGATIVE [facility] Comment on above: Order Comment: No: D o not add to previous draw Performed By: #### 3 6901, 05523 #### [facility] [address] MAGNESIUM BLOODon 08-16-2019 Magnesium [Mass/Vol] 2.0 mg/dL Normal 1.9-2.7 [facility] Comment on above: Order Comment: No: D o not add to previous draw Performed By: #### 3 6901, 29774 #### [facility] [address] [facility]. [address] *URINE CULTUREon 08-15-2019 Bacteria identified Cx Nom (U) Clinical Report: (D) Specimen/Source: URINE/MIDSTREAM Collected: 08/15/2019 20:40 Status: Final Last Updated: 08/17/2019 08:05 ISO (Final) Escherichia coli >100,000 Cfu/Ml ISOLATE: Escherichia coli RHONDA (mcg/ml) AMP./SULBAC (AMS) 16/8 Intermediate AMPICILLIN (AM) >16 Resistant AZTREONAM (AZM) <=1 Susceptible CEFAZOLIN (CZ) 2 Susceptible CEFTRIAXONE (DORMITORY SUPERVISOR) <=0.5 Susceptible CIPROFLOXACIN (CIP) >2 Resistant ESBL (-/+) (ESBL) Negative GENTAMICIN (GM) <=1 Susceptible NITROFURANTOIN (FT) <=16 Susceptible PIP/TAZO (TZP) 4/4 Susceptible TOBRAMYCIN (TOB) 1 Susceptible TRIMETH/SULFA (SXT) >2/38 Resistant Normal [facility] Comment on above: Performed By: #### 3 6901, 81937 #### [facility] [address] [place] [address], [facility] BASIC METABOLIC PANELon 12-1 Calcium [Mass/Vol] 8.8 mg/dL Normal 8.6-10.3 [facility] Comment on above: Order Comment: No: D o not add to previous draw Performed By: #### 0 0071, 32568, 45488 #### [facility] [address] [place] [address], [facility] Chloride [Moles/Vol] 107 mmol/L Normal 98-107 [facility] Comment on above: Order Comment: No: D o not add to previous draw Performed By: #### 0 0071, 48597, 23156 #### [facility] [address] [place] [address], [facility] CO2 [Moles/Vol] 27 mmol/L Normal 21-31 [facility] Comment on above: Order Comment: No: D o not add to previous draw Performed By: #### 0 0071, 10819, 81245 #### [facility] [address] [place] [address], [facility] Creatinine [Mass/Vol] 0.99 mg/dL Normal 0.60-1.20 [facility] Comment on above: Order Comment: No: D o not add to previous draw Performed By: #### 0 0071, 65574, 11341 #### [facility] [address] [place] [address], [facility] GFR/1.73 sq M predicted among blacks MDRD (S/P/Bld) [Vol rate/Area] mL/min/{1.73_m2} Normal >60 [facility] Comment on above: Order Comment: No: D o not add to previous draw Performed By: #### 0 0071, 28945, 23797 #### [facility] [address] [place] [address], [place] GFR/1.73 sq M predicted among non-blacks MDRD (S/P/Bld) [Vol rate/Area] 59 ml/min/1.73sq m Abnormal >60 [facility] Comment on above: Order Comment: No: D o not add to previous draw Performed By: #### 0 0071, 33153, 22413 #### [facility] [address] [place] [address], [place] Glucose [Mass/Vol] 100 mg/dL Normal 70-100 [facility] Comment on above: Order Comment: No: D o not add to previous draw Performed By: #### 0 0071, 73500, 99411 #### [facility] [address] [place] [address], [place] Potassium [Moles/Vol] 3.6 mmol/L Normal 3.5-5.1 [facility] Comment on above: Order Comment: No: D o not add to previous draw Performed By: #### 0 0071, 66711, 58790 #### [facility] [address] [place] [address], [place] Sodium [Moles/Vol] 140 mmol/L Normal 136-145 [facility] Comment on above: Order Comment: No: D o not add to previous draw Performed By: #### 0 0071, 22937, 83771 #### [facility] [address] [place] [address], [place] Urea nitrogen [Mass/Vol] 9 mg/dL Normal 7-25 [facility] Comment on above: Order Comment: No: D o not add to previous draw Performed By: #### 0 0071, 09545, 15630 #### [facility] [address] [place] [address], [place] LACTATE BLOODon 08-15-2019 Lactate [Moles/Vol] 0.8 mmol/L Normal 0.5-2.2 [facility] Comment on above: Order Comment: Yes: Add to Previous draw if able Performed By: #### 1 0054 #### [facility] [address] LMWH HEPARIN ASSAYon 019 LOW MOLECULAR WEIGHT HEPARIN 0.32 IU/mL Low 0.60-1.20 [facility] Comment on above: Order Comment: (draw [...] and LMWH. Performed By: #### 3 6901, 12208 #### [facility] [address] [facility]. [address] MAGNESIUM BLOODon 08-15-2019 Magnesium [Mass/Vol] 1.7 mg/dL Low 1.9-2.7 [facility] Comment on above: Order Comment: No: D o not add to previous draw Performed By: #### 0 0071, 18863, 20137 #### [facility] [address] [place] [address], [facility] PHOSPHORUS BLOODon 9 Phosphate [Mass/Vol] 4.1 mg/dL Normal 2.5-5.0 [facility] Comment on above: Order Comment: No: D o not add to previous draw Performed By: #### 0 0071, 55751, 06576 #### [facility] [address] [place] [address], [facility] UGI WITH SMALL BOWELon 08-15 UGI WITH SMALL BOWEL [facility] Department of Radiology [address] [place] [address] Patient Name: CONSTANTINO CARDOSO : 1970 Sex: F Age: Race: White Pt. Location: [id number] Patient Status: O Ordered Date: 08/15/2019 10:45:00 [...] ischemia. Electronically signed by:Orestes Condon. Transcribed by: [email or web address], User Resident: Electronically Signed by: ORESTES CONDON @ 08/15/2019 04:13 PM Normal [facility] Comment on above: Order Comment: R/O O bstruction URINALYSIS REFLEXon 08-15-20 19 Appearance (U) SL CLOUDY Abnormal CLEAR [facility] Comment on above: Order Comment: No: D o not add to previous drawCriteria for reflexing a culture was met. Urine Culture and sensitivitywill be performed. Performed By: #### 3 2301, 35255 #### [facility] [address] [facility] [address], [facility] Bilirubin [Mass/Vol] Negative Normal NEGATIVE [facility] Comment on above: Order Comment: No: D o not add to previous drawCriteria for reflexing a culture was met. Urine Culture and sensitivitywill be performed. Performed By: #### 3 7561, 95199 #### [facility] [address] [place] [address], [place] BLOOD SMALL Abnormal NEGATIVE [facility] Comment on above: Order Comment: No: D o not add to previous drawCriteria for reflexing a culture was met. Urine Culture and sensitivitywill be performed. Performed By: #### 3 3031, 26164 #### [facility] [address] [place] [address], [place] Color (U) YELLOW Normal YELLOW [facility] Comment on above: Order Comment: No: D o not add to previous drawCriteria for reflexing a culture was met. Urine Culture and sensitivitywill be performed. Performed By: #### 3 6731, 28777 #### [facility] [address] [place] [address], [place] EPIS OCC Normal FEW,OCC,NON E SEEN [facility] Comment on above: Order Comment: No: D o not add to previous drawCriteria for reflexing a culture was met. Urine Culture and sensitivitywill be performed. Performed By: #### 3 6901, 13716 #### [facility] [address] [place] [address], [facility] Glucose [Mass/Vol] Negative Normal NEGATIVE [facility] Comment on above: Order Comment: No: D o not add to previous drawCriteria for reflexing a culture was met. Urine Culture and sensitivitywill be performed. Performed By: #### 3 6901, 49078 #### [facility] [address] [facility] [place] [address], [facility] HYALINE CASTS 6-10 Abnormal NONE SEEN [facility] Comment on above: Order Comment: No: D o not add to previous drawCriteria for reflexing a culture was met. Urine Culture and sensitivitywill be performed. Performed By: #### 3 6901, 10989 #### [facility] [address] [place] [address], [facility] KETONE Negative Normal NEGATIVE [facility] Comment on above: Order Comment: No: D o not add to previous drawCriteria for reflexing a culture was met. Urine Culture and sensitivitywill be performed. Performed By: #### 3 6901, 03005 #### [facility] [address] [place] [address], [facility] LEUK JONN MODERATE Abnormal NEGATIVE [facility] Comment on above: Order Comment: No: D o not add to previous drawCriteria for reflexing a culture was met. Urine Culture and sensitivitywill be performed. Performed By: #### 3 6901, 35925 #### [facility] [address] [place] [address], [place] MUCUS THREADS FEW Abnormal NONE SEEN [facility] Comment on above: Order Comment: No: D o not add to previous drawCriteria for reflexing a culture was met. Urine Culture and sensitivitywill be performed. Performed By: #### 3 690, 16108 #### [facility] [address] [place] [address], [facility] Nitrite Ql (U) Negative Normal NEGATIVE [facility] Comment on above: Order Comment: No: D o not add to previous drawCriteria for reflexing a culture was met. Urine Culture and sensitivitywill be performed. Performed By: #### 3 690, 23298 #### [facility] [address] [place] [address], [facility] pH (Bld) 5.0 Normal 5.0-8.0 [facility] Comment on above: Order Comment: No: D o not add to previous drawCriteria for reflexing a culture was met. Urine Culture and sensitivitywill be performed. Performed By: #### 3 690, 00313 #### [facility] [address] [place] [address], [facility] Protein (U) [Mass/Vol] Negative Normal NEGATIVE [facility] Comment on above: Order Comment: No: D o not add to previous drawCriteria for reflexing a culture was met. Urine Culture and sensitivitywill be performed. Performed By: #### 3 690, 03359 #### [facility] [address] [place] [address], [facility] RBC (U) [#/Vol] 6-10 Abnormal NONE SEEN [facility] Comment on above: Order Comment: No: D o not add to previous drawCriteria for reflexing a culture was met. Urine Culture and sensitivitywill be performed. Performed By: #### 3 6901, [id number] #### [facility] [address] [place] [address], [facility] SPEC GRAV 1.025 High 1.015-1.020 [facility] Comment on above: Order Comment: No: D o not add to previous drawCriteria for reflexing a culture was met. Urine Culture and sensitivitywill be performed. Performed By: #### 3 0211, [id number] #### [facility] [address] [place] [address], [facility] WBC UA 51-100 Abnormal NONE SEEN [facility] Comment on above: Order Comment: No: D o not add to previous drawCriteria for reflexing a culture was met. Urine Culture and sensitivitywill be performed. Performed By: #### 3 2161, 58493 #### [facility] [address] [place] [id number], [facility] CBC COMPLETE BLOOD COUNTon 10-15-2018 Erythrocyte distribution width (RBC) [Ratio] 12.7 % Normal 11.5-15.0 [facility] Comment on above: Order Comment: No: D o not add to previous draw Performed By: #### 5 0608 #### [facility] [address] [place] [address], [facility] Hematocrit (Bld) [Volume fraction] 31.2 % Low 36.0-45.0 [facility] Comment on above: Order Comment: No: D o not add to previous draw Performed By: #### 5 0608 #### [facility] [address] [place] [id number], [facility] Hemoglobin (Bld) [Mass/Vol] 9.8 g/dL Low 12.0-15.0 [facility] Comment on above: Order Comment: No: D o not add to previous draw Performed By: #### 5 0608 #### [facility] [address] [place] [id number], [facility] MCH (RBC) [Entitic mass] 29.1 pg Normal 27.0-33.0 [facility] Comment on above: Order Comment: No: D o not add to previous draw Performed By: #### 5 0608 #### [facility] [address] [place] [id number], [facility] MCHC (RBC) [Mass/Vol] 31.4 g/dL Low 32.0-35.0 [facility] Comment on above: Order Comment: No: D o not add to previous draw Performed By: #### 5 0608 #### [facility] [address] [place] [address], [facility] MCV (RBC) [Entitic vol] 92.6 fL Normal 82.0-98.0 [facility] Comment on above: Order Comment: No: D o not add to previous draw Performed By: #### 5 0608 #### [facility] [address] [place] [address], [facility] Nucleated RBC/100 WBC (Bld) [Ratio] 0 % Normal 0-0 [facility] Comment on above: Order Comment: No: D o not add to previous draw Performed By: #### 5 0608 #### [facility] [address] [place] [address], [facility] PLAT CNT 340 10*3/uL Normal 150-400 [facility] Comment on above: Order Comment: No: D o not add to previous draw Performed By: #### 5 0608 #### [facility] [address] [place] [address], [facility] RBC (Bld) [#/Vol] 3.37 10*6/uL Low 3.80-5.00 [facility] Comment on above: Order Comment: No: D o not add to previous draw Performed By: #### 5 0608 #### [facility] [address] [place] [address], [facility] WBC (Bld) [#/Vol] 6.04 10*3/uL Normal 4.00-10.60 [facility] Comment on above: Order Comment: No: D o not add to previous draw Performed By: #### 5 0608 #### [facility] [address] [place] [address], [facility] PROTHROMBIN TIMEon 12-10-201 9 INR Coag (PPP) [Relative time] 1.09 {INR} Normal 0.91-1.16 [facility] Comment on above: Order Comment: No: D o not add to previous draw Result Comment: ACC P RECOMMENDED INR FOR WARFARIN THERAPY -------- [...] 1995;[id number]. Performed By: #### 5 6101 #### [address] PT Coag (PPP) [Time] 14.1 s Normal 12.3-14.8 [facility] Comment on above: Order Comment: No: D o not add to previous draw Result Comment: ALL RESULTS MUST BE INTERPRETED WITH RESPECT TO BLOOD DRAWING ARTIFACT OR DILUTION ERROR OF ANTICOAGULANT AT THE TIME OF SAMPLING. Performed By: #### 5 6101 #### [address] 08-14-2019 [facility] Department of Radiology [address] [place] [id number] Patient Name: CONSTANTINO CARDOSO : 1970 Sex: F Age: Race: White Pt. Location: [id number] Patient Status: O Ordered Date: 08/13/2019 8:30:00 [...] cholecystectomy. Electronically signed by:Orestes Condon. Transcribed by: [email or web address], User Resident: Electronically Signed by: ORESTES CONDON @ 08/14/2019 02:09 PM Normal [facility] Comment on above: Order Comment: R/O S tones BASIC METABOLIC PANELon 12-0 Calcium [Mass/Vol] 9.4 mg/dL Normal 8.6-10.3 [facility] Comment on above: Order Comment: No: D o not add to previous draw Performed By: #### 3 5811, [id number] #### [facility] [address] Chloride [Moles/Vol] 105 mmol/L Normal 98-107 [facility] Comment on above: Order Comment: No: D o not add to previous draw Performed By: #### 3 093, 10755 #### [facility] [address] [place] [address], [place] CO2 [Moles/Vol] 26 mmol/L Normal 21-31 [facility] Comment on above: Order Comment: No: D o not add to previous draw Performed By: #### 3 961, 25789 #### [facility] [address] [place] [address], [place] Creatinine [Mass/Vol] 1.03 mg/dL Normal 0.60-1.20 [facility] Comment on above: Order Comment: No: D o not add to previous draw Performed By: #### 3 118, 03769 #### [facility] [address] [place] [address], [place] GFR/1.73 sq M predicted among blacks MDRD (S/P/Bld) [Vol rate/Area] mL/min/{1.73_m2} Normal >60 [facility] Comment on above: Order Comment: No: D o not add to previous draw Performed By: #### 3 446, 87528 #### [facility] [address] [place] [address], [place] GFR/1.73 sq M predicted among non-blacks MDRD (S/P/Bld) [Vol rate/Area] 57 ml/min/1.73sq m Abnormal >60 [facility] Comment on above: Order Comment: No: D o not add to previous draw Performed By: #### 3 730, 55380 #### [facility] [address] [place] [address], [place] Glucose [Mass/Vol] 96 mg/dL Normal 70-100 [facility] Comment on above: Order Comment: No: D o not add to previous draw Performed By: #### 3 513, 26140 #### [facility] [address] [place] [address], [facility] Potassium [Moles/Vol] 4.1 mmol/L Normal 3.5-5.1 [facility] Comment on above: Order Comment: No: D o not add to previous draw Performed By: #### 3 221, 82597 #### [facility] [address] [place] [address], [facility] Sodium [Moles/Vol] 138 mmol/L Normal 136-145 [facility] Comment on above: Order Comment: No: D o not add to previous draw Performed By: #### 3 923, 97221 #### [facility] [address] Urea nitrogen [Mass/Vol] 16 mg/dL Normal 7-25 [facility] Comment on above: Order Comment: No: D o not add to previous draw Performed By: #### 3 012, 54289 #### [facility] [address] CBC W/DIFFon 08-13-2019 ABS BASOPHILS 0.0 10*3/uL Normal 0.0-0.2 [facility] Comment on above: Order Comment: No: D o not add to previous draw Performed By: #### 5 0103 #### [facility] [address] [facility] [address], [facility] ABS IMM GRANS 0.0 10*3/uL Normal 0.0-0.2 [facility] Comment on above: Order Comment: No: D o not add to previous draw Performed By: #### 5 0103 #### [facility] [address] [facility] [address], [facility] ABS NEUTROPHILS 4.0 10*3/uL Normal 1.6-7.6 [facility] Comment on above: Order Comment: No: D o not add to previous draw Performed By: #### 5 0103 #### [facility] [address] [place] [address], [facility] Basophils/100 WBC (Bld) 0.5 % Normal 0.0-1.0 [facility] Comment on above: Order Comment: No: D o not add to previous draw Performed By: #### 5 0103 #### [facility] [address] [place] [address], [place] Eosinophils (Bld) [#/Vol] 0.2 10*3/uL Normal 0.0-0.5 [facility] Comment on above: Order Comment: No: D o not add to previous draw Performed By: #### 5 0103 #### [facility] [address] [place] [address], [facility] Eosinophils/100 WBC (Bld) 3.3 % Normal 0.0-6.0 [facility] Comment on above: Order Comment: No: D o not add to previous draw Performed By: #### 5 0103 #### [facility] [address] [place] [address], [facility] Erythrocyte distribution width (RBC) [Ratio] 12.7 % Normal 11.5-15.0 [facility] Comment on above: Order Comment: No: D o not add to previous draw Performed By: #### 5 0103 #### [facility] [address] [place] [address], [facility] Hematocrit (Bld) [Volume fraction] 33.4 % Low 36.0-45.0 [facility] Comment on above: Order Comment: No: D o not add to previous draw Performed By: #### 5 0103 #### [facility] [address] [place] [address], [facility] Hemoglobin (Bld) [Mass/Vol] 10.5 g/dL Low 12.0-15.0 [facility] Comment on above: Order Comment: No: D o not add to previous draw Performed By: #### 5 0103 #### [facility] [address] [place] [address], [facility] IMMATURE GRANS 0.2 % Normal 0.0-1.0 [facility] Comment on above: Order Comment: No: D o not add to previous draw Performed By: #### 5 0103 #### [facility] [address] [place] [address], [facility] Lymphocytes (Bld) [#/Vol] 1.8 10*3/uL Normal 1.2-4.0 [facility] Comment on above: Order Comment: No: D o not add to previous draw Performed By: #### 5 0103 #### [facility] [address] [place] [address], [facility] Lymphocytes/100 WBC (Bld) 28.2 % Normal 20.0-45.0 [facility] Comment on above: Order Comment: No: D o not add to previous draw Performed By: #### 5 0103 #### [facility] [address] [place] [address], [facility] MCH (RBC) [Entitic mass] 28.9 pg Normal 27.0-33.0 [facility] Comment on above: Order Comment: No: D o not add to previous draw Performed By: #### 5 0103 #### [facility] [address] [place] [address], [facility] MCHC (RBC) [Mass/Vol] 31.4 g/dL Low 32.0-35.0 [facility] Comment on above: Order Comment: No: D o not add to previous draw Performed By: #### 5 0103 #### [facility] [address] [place] [address], [facility] MCV (RBC) [Entitic vol] 92.0 fL Normal 82.0-98.0 [facility] Comment on above: Order Comment: No: D o not add to previous draw Performed By: #### 5 0103 #### [facility] [address] [place] [id number], [facility] Monocytes (Bld) [#/Vol] 0.4 10*3/uL Normal 0.1-1.0 [facility] Comment on above: Order Comment: No: D o not add to previous draw Performed By: #### 5 0103 #### [facility] [address] [place] [address], [place] MONOS 6.2 % Normal 5.0-12.0 [facility] Comment on above: Order Comment: No: D o not add to previous draw Performed By: #### 5 0103 #### [facility] [address] [place] [address], [facility] Neutrophils/100 WBC (Bld) 61.6 % Normal 40.0-72.0 [facility] Comment on above: Order Comment: No: D o not add to previous draw Performed By: #### 5 0103 #### [facility] [address] [place] [id number], [facility] Nucleated RBC/100 WBC (Bld) [Ratio] 0 % Normal 0-0 [facility] Comment on above: Order Comment: No: D o not add to previous draw Performed By: #### 5 0103 #### [facility] [address] [place] [address], [place] PLAT CNT 382 10*3/uL Normal 150-400 [facility] Comment on above: Order Comment: No: D o not add to previous draw Performed By: #### 5 0103 #### [facility] [address] [place] [address], [place] RBC (Bld) [#/Vol] 3.63 10*6/uL Low 3.80-5.00 [facility] Comment on above: Order Comment: No: D o not add to previous draw Performed By: #### 5 0103 #### [facility] [address] [place] [address], [place] WBC (Bld) [#/Vol] 6.45 10*3/uL Normal 4.00-10.60 [facility] Comment on above: Order Comment: No: D o not add to previous draw Performed By: #### 5 0103 #### [facility] [address] [place] [address], [facility] LIPASE BLOODon 08-13-2019 Lipase [Catalytic activity/Vol] 13 Units/L Normal 11-82 [facility] Comment on above: Performed By: #### 3 6901, 20968 #### [facility] [address] Vital Signs Date Time Vital Sign Value Performing Clinician Facility 08-30-2024 07:25-0500 Body temperature 97.9 [degF] [facility] 08-30-2024 07:25-0500 Diastolic blood pressure 89 mm[Hg] [facility] 08-30-2024 07:25-0500 Heart rate 61 /min Pete Otto [facility] 08-30-2024 07:25-0500 Respiratory rate 16 /min Pete Otto [facility] 08-30-2024 07:25-0500 SaO2% (BldA) [Mass fraction] 96 % Pete Otto [facility] 08-30-2024 07:25-0500 Systolic blood pressure 144 mm[Hg] [facility] 08-28-2024 16:30-0500 Body height 170.2 cm Pete Otto [facility] 08-28-2024 16:30-0500 Body mass index (BMI) [Ratio] 28.82 kg/m2 Pete Otto MD [facility] 08-28-2024 16:30-0500 Body weight 83.5 kg Pete Otto MD [facility] 08-17-2024 13:40-0500 Body temperature 97.7 [degF] Justin Lucero MD Work Phone: [facility] [employer] 08-17-2024 13:40-0500 Diastolic blood pressure 89 mm[Hg] Justin Lucero MD Work Phone: [facility] 08-17-2024 13:40-0500 Heart rate 68 /min Justin Lucero MD [facility] 08-17-2024 13:40-0500 Respiratory rate 12 /min Justin Lucero MD Work Phone: [facility] 08-17-2024 13:40-0500 SaO2% (BldA) [Mass fraction] 99 % Justin Lucero MD Work Phone: [facility] 08-17-2024 13:40-0500 Systolic blood pressure 159 mm[Hg] Justin Lucero MD [facility] 08-17-2024 11:29-0500 Body height 170.2 cm Justin Lucero MD [facility] 08-17-2024 11:29-0500 Body mass index (BMI) [Ratio] 29.75 kg/m2 Justin Lucero MD Work Phone: [facility] 08-17-2024 11:29-0500 Body weight 86.18 kg Justin Lucero MD [facility] 07-13-2024 11:29-0500 Body height 170.2 cm Kulwant Hodge MD Work Phone: [facility] 07-13-2024 11:29-0500 Body mass index (BMI) [Ratio] 29.44 kg/m2 Kulwant Hodge MD Work Phone: [facility] 07-13-2024 11:29-0500 Body weight 85.28 kg Kulwant Hodge MD Work Phone: [facility] 07-13-2024 11:29-0500 Diastolic blood pressure 70 mm[Hg] Kulwant Hodge MD Work Phone: [facility] 07-13-2024 11:29-0500 Heart rate 68 /min Kulwant Hodge MD Work Phone: [facility] Comment on above: 02 SAT 96% 07-13-2024 11:29-0500 Respiratory rate 16 /min Kulwant Hodge MD Work Phone: [facility] 07-13-2024 11:29-0500 Systolic blood pressure 116 mm[Hg] Kulwant Hodge MD Work Phone: [facility] 06-20-2024 11:08-0400 Body height 170.2 cm Kulwant Hodge MD Work Phone: [facility] 06-20-2024 11:08-0400 Body mass index (BMI) [Ratio] 28.98 kg/m2 Kulwant Hodge MD Work Phone: [facility] 06-20-2024 11:08-0400 Body weight 83.92 kg Kulwant Hodge MD Work Phone: [facility] 06-20-2024 11:08-0400 Diastolic blood pressure 92 mm[Hg] Kulwant Hodge MD Work Phone: [facility] 06-20-2024 11:08-0400 Heart rate 62 /min Kulwant Hodge MD Work Phone: [facility] 06-20-2024 11:08-0400 Respiratory rate 16 /min Kulwant Hodge MD Work Phone: [facility] 06-20-2024 11:08-0400 Systolic blood pressure 140 mm[Hg] Kulwant Hodge MD Work Phone: [facility] 05-11-2024 10:50-0400 Diastolic blood pressure 80 mm[Hg] [employer] Judi Youssef Work Phone: [facility] 05-11-2024 10:50-0400 Heart rate 67 /min [employer] Judi Mikael Work Phone: [facility] 05-11-2024 10:50-0400 Respiratory rate 16 /min [employer] Judi Mikael Work Phone: [facility] 05-11-2024 10:50-0400 SaO2% (BldA) [Mass fraction] 100 % [employer] Judi Youssef Work Phone: [facility] 05-11-2024 10:50-0400 Systolic blood pressure 130 mm[Hg] [employer] Judi Mikael Work Phone: [facility] 05-11-2024 08:23-0400 Body height 170.18 cm [employer] Judi Mikael Work Phone: [facility] 05-11-2024 08:23-0400 Body weight 81.64 kg [employer] Judijose manuel Youssef Work Phone: [facility] 04-26-2024 08:27-0400 Body height 170.[address] [facility] 04-26-2024 08:27-0400 Body mass index (BMI) [Ratio] 28.5 kg/m2 [facility] 04-26-2024 08:27-0400 Body weight 82.[address] [facility] 04-26-2024 08:27-0400 Diastolic blood pressure 82 mm[Hg] [facility] 04-26-2024 08:27-0400 Heart rate 59 /min [facility] 04-26-2024 08:27-0400 Systolic blood pressure 132 mm[Hg] [facility] 02-16-2024 09:03-0400 Blood Pressure Location Yolanda Lou [facility] 02-16-2024 09:03-0400 Body temperature 97.7 [degF] Yolanda Orzech [facility] 02-16-2024 09:03-0400 Diastolic blood pressure 84 mm[Hg] Yolanda Orzech [facility] 02-16-2024 09:03-0400 Heart rate 78 /min Yolanda Orzech [facility] 02-16-2024 09:03-0400 Systolic blood pressure 128 mm[Hg] Yolanda Orzech [facility] 07-22-2023 13:19-0500 Body height 170.[address] Work Phone: [facility] 07-22-2023 13:19-0500 Body weight 83.[address] Work Phone: [facility] 07-14-2023 11:40-0500 Diastolic blood pressure 95 mm[Hg] Marques Bradley MD Work Phone: [facility] 07-14-2023 11:40-0500 Heart rate 56 /min Marques Bradley MD Work Phone: [facility] 07-14-2023 11:40-0500 Respiratory rate 16 /min Marques Bradley MD Work Phone: [facility] 07-14-2023 11:40-0500 SaO2% (BldA) [Mass fraction] 97 % Marques Bradley MD Work Phone: [facility] 07-14-2023 11:40-0500 Systolic blood pressure 158 mm[Hg] Marques Bradley MD Work Phone: [facility] 07-14-2023 11:10-0500 Body temperature 97.2 [degF] Marques Bradley MD Work Phone: [facility] 07-14-2023 08:34-0500 Body height 170.2 cm Marques Bradley MD Work Phone: [facility] 07-14-2023 08:34-0500 Body weight 88 kg Marques Bradley MD Work Phone: [facility] 04-21-2023 09:30-0400 Body height 170.18 cm Renny Omalley Other [employer] [facility] [employer] Other 04-21-2023 09:30-0400 Body mass index (BMI) [Ratio] 31.21 kg/m2 Renny Najeraormack Other [employer] Other 04-21-2023 09:30-0400 Body weight 90.4 kg Renny Najeraormack Other [employer] Other 04-21-2023 09:30-0400 Diastolic blood pressure 78 mm[Hg] Renny Lyssa Other [employer] Other 04-21-2023 09:30-0400 Systolic blood pressure 130 mm[Hg] Renny Lyssa Other [employer] Other 03-23-2023 07:33-0400 Diastolic blood pressure 80 mm[Hg] [employer] Judi Youssef Work Phone: [facility] 03-23-2023 07:33-0400 Heart rate 81 /min [employer] Judi Mikael Work Phone: [facility] 03-23-2023 07:33-0400 Respiratory rate 14 /min [employer] Judi Mikael Work Phone: [facility] 03-23-2023 07:33-0400 SaO2% (BldA) [Mass fraction] 95 % [employer] Judi Ugaldemer Work Phone: [facility] 03-23-2023 07:33-0400 Systolic blood pressure 171 mm[Hg] [employer] Judi Mikael Work Phone: [facility] 03-23-2023 06:20-0400 Body height 170.18 cm [employer] Judi Mikael Work Phone: [facility] 03-23-2023 06:20-0400 Body temperature 97.4 [degF] [employer] Judi Mikael Work Phone: [facility] 03-23-2023 06:20-0400 Body weight 90 kg [employer] Judi Mikael Work Phone: [facility] 02-19-2023 00:53-0400 Body temperature 96.98 [degF] Kaylinn Dokken [facility] 02-19-2023 00:53-0400 Diastolic blood pressure 99 mm[Hg] Kaylinn Dokken [facility] 02-19-2023 00:53-0400 Heart rate 75 /min Kaylinn Dokken [facility] 02-19-2023 00:53-0400 Respiratory rate 16 /min Kaylinn Dokken [facility] 02-19-2023 00:53-0400 SaO2% (BldA) [Mass fraction] 98 % Kaylinn Dokken [facility] 02-19-2023 00:53-0400 Systolic blood pressure 153 mm[Hg] Kaylinn Dokken [facility] 02-15-2023 10:33-0400 Diastolic blood pressure 89 mm[Hg] [employer] Judi Mikael Work Phone: [facility] 02-15-2023 10:33-0400 SaO2% (BldA) [Mass fraction] 100 % [employer] Judi Mikael Work Phone: [facility] 02-15-2023 10:33-0400 Systolic blood pressure 149 mm[Hg] [employer] Judi Mikael Work Phone: [facility] 02-15-2023 10:00-0400 Heart rate 83 /min CONSTRUCTION RIGGER-C Judi Mikael Work Phone: [facility] 02-15-2023 10:00-0400 Respiratory rate 16 /min CONSTRUCTION RIGGER-C Judi Mikael Work Phone: [facility] 02-15-2023 08:06-0400 Body height 170.18 cm CONSTRUCTION RIGGER-C Judi Mikael Work Phone: [facility] 02-15-2023 08:06-0400 Body temperature 97.6 [degF] CONSTRUCTION RIGGER-C Judi Mikael Work Phone: [facility] 02-15-2023 08:06-0400 Body weight 89.2 kg CONSTRUCTION RIGGER-C Judi Mikael Work Phone: [facility] 10-26-2022 08:03-0500 Diastolic blood pressure 87 mm[Hg] CONSTRUCTION RIGGER-C Judi Mikael Work Phone: [facility] 10-26-2022 08:03-0500 Heart rate 70 /min CONSTRUCTION RIGGER-C Judi Mikael Work Phone: [facility] 10-26-2022 08:03-0500 Respiratory rate 18 /min CONSTRUCTION RIGGER-C Judi Mikael Work Phone: [facility] 10-26-2022 08:03-0500 SaO2% (BldA) [Mass fraction] 98 % CONSTRUCTION RIGGER-C Judi Mikael Work Phone: [facility] 10-26-2022 08:03-0500 Systolic blood pressure 161 mm[Hg] CONSTRUCTION RIGGER-C Judi Mikael Work Phone: [facility] 10-26-2022 06:17-0500 Body height 170.18 cm CONSTRUCTION RIGGER-C Judi Mikael Work Phone: [facility] 10-26-2022 06:17-0500 Body temperature 97.2 [degF] CONSTRUCTION RIGGER-C Judi Youssef Work Phone: [facility] 10-26-2022 06:17-0500 Body weight 88.9 kg CONSTRUCTION RIGGER-C Judi Youssef Work Phone: [facility] 07-22-2022 14:34-0500 Diastolic blood pressure 83 mm[Hg] Ospina SALAM [facility] 07-22-2022 14:34-0500 Mean blood pressure 101 mm[Hg] Ospina SALAM [facility] 07-22-2022 14:34-0500 Systolic blood pressure 136 mm[Hg] Ospina SALAM [facility] 07-22-2022 14:30-0500 Blood Pressure Location Ospina SALAM [facility] 07-22-2022 14:30-0500 Diastolic blood pressure 89 mm[Hg] Ospina SALAM [facility] 07-22-2022 14:30-0500 Heart rate 62 /min Ospina SALAM [facility] 07-22-2022 14:30-0500 Respiratory rate 16 /min Ospina SALAM [facility] 07-22-2022 14:30-0500 SaO2% (BldA) [Mass fraction] 98 % Ospina SALAM [facility] 07-22-2022 14:30-0500 Systolic blood pressure 141 mm[Hg] Ospina SALAM [facility] 04-14-2022 14:50-0400 Blood Pressure Location Monique Marquez [facility] 04-14-2022 14:50-0400 Body temperature 97.16 [degF] Monique Jimmy [facility] 04-14-2022 14:50-0400 Diastolic blood pressure 86 mm[Hg] Monique Jimmy [facility] 04-14-2022 14:50-0400 Heart rate 72 /min Monique Jimmy [facility] 04-14-2022 14:50-0400 SaO2% (BldA) [Mass fraction] 97 % Monique Jimmy [facility] 04-14-2022 14:50-0400 Systolic blood pressure 131 mm[Hg] Monique Jimmy [facility] 01-28-2022 13:36-0400 Blood Pressure Location Monique Jimmy [facility] 01-28-2022 13:36-0400 Body temperature 97.52 [degF] Monique Jimmy [facility] 01-28-2022 13:36-0400 Diastolic blood pressure 85 mm[Hg] Monique Jimmy [facility] 01-28-2022 13:36-0400 Heart rate 73 /min Monique Jimmy [facility] 01-28-2022 13:36-0400 SaO2% (BldA) [Mass fraction] 96 % Moniquejuan luis Castañedaz [facility] 01-28-2022 13:36-0400 Systolic blood pressure 122 mm[Hg] Monique Reddymetz [facility] 01-11-2022 10:15-0400 Blood Pressure Location Ospina SALAM [facility] 01-11-2022 10:15-0400 Diastolic blood pressure 106 mm[Hg] Ospina SALAM [facility] 01-11-2022 10:15-0400 Heart rate 70 /min Ospina SALAM [facility] 01-11-2022 10:15-0400 Respiratory rate 28 /min Ospina SALAM [facility] 01-11-2022 10:15-0400 SaO2% (BldA) [Mass fraction] 99 % Ospina SALAM [facility] 01-11-2022 10:15-0400 Systolic blood pressure 137 mm[Hg] Ospina SALAM [facility] 01-11-2022 10:05-0400 Blood Pressure Location Ospina SALAM [facility] 01-11-2022 10:05-0400 Diastolic blood pressure 74 mm[Hg] Ospina SALAM [facility] 01-11-2022 10:05-0400 Heart rate 67 /min Ospina SALAM [facility] 01-11-2022 10:05-0400 Respiratory rate 14 /min Ospina SALAM [facility] 01-11-2022 10:05-0400 SaO2% (BldA) [Mass fraction] 97 % Ospina SALAM [facility] 01-11-2022 10:05-0400 Systolic blood pressure 128 mm[Hg] Ospina SALAM [facility] 01-11-2022 10:00-0400 Blood Pressure Location Ospina SALAM [facility] 01-11-2022 10:00-0400 Diastolic blood pressure 79 mm[Hg] Ospina SALAM [facility] 01-11-2022 10:00-0400 Heart rate 66 /min Ospina SALAM [facility] 01-11-2022 10:00-0400 Respiratory rate 16 /min Ospina SALAM [facility] 01-11-2022 10:00-0400 SaO2% (BldA) [Mass fraction] 98 % Ospina SALAM [facility] 01-11-2022 10:00-0400 Systolic blood pressure 134 mm[Hg] Ospina SALAM [facility] 01-11-2022 09:50-0400 Body temperature 97.52 [degF] Ospina SALAM [facility] 01-11-2022 09:45-0400 Respiratory rate 15 /min Ospina SALAM [facility] 01-11-2022 09:18-0400 Body temperature 97.34 [degF] Ospina SALAM [facility] 01-11-2022 09:18-0400 Respiratory rate 20 /min Ospina SALAM [facility] Encounters Encounter Date Encounter Type Care Provider Facility Start: 08-28-2024 End: 08-30-2024 Evaluation and management of inpatient Pete Otto MD Work Phone: [facility] Comment on above: Ileus (HCC) (Primary Dx); Generalized abdominal pain; Hypokalemia Start: 08-17-2024 End: 08-17-2024 ambulatory JUSTIN LUCERO [facility] Start: 08-17-2024 End: 08-17-2024 Subsequent hospital visit by physician Justin Lucero MD Work Phone: [facility] Comment on above: Other dysphagia (Apple alfonzo Dx) Start: 07-13-2024 End: 07-13-2024 Bamtyler Hodge MD Work Phone: [facility] Start: 07-13-2024 End: 07-13-2024 Sil Hodge MD Work Phone: [facility] Start: 07-13-2024 End: 07-13-2024 Office outpatient visit 25 minutes Kulwant Hodge MD Work Phone: [facility] Comment on above: Hypoglycemia Start: 07-13-2024 End: 07-13-2024 ambulatory KULWANT HODGE Not Available Start: 06-20-2024 End: 06-20-2024 Sil Hodge MD Work Phone: [facility] Start: 06-20-2024 End: 06-20-2024 Sil Hodge MD Work Phone: [facility] Start: 06-20-2024 End: 06-20-2024 ambulatory KULWANT HODGE Not Available Start: 06-20-2024 End: 06-20-2024 Office outpatient new 45 minutes Kulwant Hodge MD Work Phone: [facility] Comment on above: Hypoglycemia (Primar y Dx); Encounter for dietary consultation Start: 06-19-2024 End: 06-19-2024 Patient encounter procedure CONSTRUCTION RIGGER-C Judi Youssef Work Phone: [facility] Work Phone: Start: 06-19-2024 End: 06-19-2024 ambulatory Judi Ugaldemer Facility:[facility] Start: 06-07-2024 End: 06-07-2024 ambulatory Yolanda X Ormellissach Facility:[facility] Start: 06-07-2024 End: 06-07-2024 Patient encounter procedure Yolanda X Orzech [facility] Start: 05-14-2024 End: 05-14-2024 ambulatory [facility] Start: 05-11-2024 Non-patient / Non-visit CONSTRUCTION RIGGER-C P christi Youssef Work Phone: [facility] Work Phone: Start: 05-11-2024 End: 05-11-2024 Admission to same day surgery center CONSTRUCTION RIGGER-C Judi Youssef Work Phone: [facility] Work Phone: Start: 05-11-2024 End: 05-11-2024 ambulatory CONSTRUCTION RIGGER-C Judi Youssef Work Phone: [facility] Work Phone: Start: 04-26-2024 End: 04-26-2024 ambulatory [facility] Work Phone: Start: 04-26-2024 End: 04-26-2024 Patient encounter procedure [facility] Work Phone: Start: 04-13-2024 Non-patient / Non-visit CONSTRUCTION RIGGER-C P christi Mikael Work Phone: [facility] Work Phone: Start: 03-19-2024 End: 03-19-2024 ambulatory [facility] Start: 02-16-2024 End: 02-16-2024 ambulatory Yolanda X Orzech Facility[facility] Start: 02-16-2024 End: 02-16-2024 Lab Drop off Yolanda X Orzech [facility] Start: 02-16-2024 End: 02-16-2024 ambulatory Yolanda X Orzech Facility: [place] Start: 02-16-2024 End: 02-16-2024 Patient encounter procedure Yolanda X Orzech [facility] Start: 02-15-2024 End: 02-15-2024 ambulatory [facility] Start: 12-01-2023 ambulatory [facility] Start: 08-25-2023 End: 08-25-2023 ambulatory [facility] Facility:[facility] Start: 07-29-2023 Orders Only Evelyn Black RN Gen eral Surgery Comment on above: Gastroparesis (Prima ry Dx) Start: 07-22-2023 End: 07-22-2023 ambulatory MARQUES BRADLEY Facility:[facility] Start: 07-22-2023 Telephone encounter Evelyn Black RN General Surgery Start: 07-22-2023 End: 07-22-2023 Nutrition therapy Melissa Montalvo RD Work Phone: General Surgery Comment on above: Gastroparesis (Prima ry Dx); Malnutrition of moderate degree (HCC); Gastro-esophageal reflux disease without esophagitis; Overweight (BMI 25.0-29.9); Dietary counseling and surveillance Start: 07-22-2023 End: 07-22-2023 Telemedicine consultation with patient Melissa Montalvo RD Work Phone: [facility] Start: 07-14-2023 End: 07-14-2023 ambulatory MARQUES BRADLEY Facility:[facility] Start: 07-14-2023 End: 07-14-2023 Subsequent hospital visit by physician Marques Bradley MD Work Phone: Gastroenterology Comment on above: Dysphagia, unspecifi ed type [R13.10] Start: 07-13-2023 End: 07-13-2023 ambulatory MARQUES BRADLEY Facility:[facility] Start: 06-06-2023 End: 06-06-2023 ambulatory Samuel Estrella Facility:[facility] Start: 05-27-2023 Telephone encounter Evelyn Black RN General Surgery Comment on above: Results Start: 05-26-2023 End: 05-26-2023 ambulatory MARQUES BRADLEY Facility:[facility] Start: 05-25-2023 End: 05-25-2023 ambulatory JOEL PANCHAL [facility] Facility:[facility] Start: 05-25-2023 End: 05-25-2023 Nursing evaluation of patient and report Nurse [facility] 2 Work Phone: Gastroenterology Comment on above: Nausea Start: 05-16-2023 Orders Only Evelyn Black RN Gen eral Surgery Comment on above: Nausea (Primary Dx); Dysphagia, unspecified type Start: 05-06-2023 End: 05-07-2023 ambulatory MARQUES BRADLEY Facility:[facility] Start: 05-02-2023 Telephone encounter Evelyn Black RN General Surgery Start: 04-26-2023 Telephone encounter Evelyn Black RN General Surgery Start: 04-21-2023 End: 04-21-2023 ambulatory Renny Omalley Other [employer] Other Start: 04-21-2023 Office outpatient vi sit 15 minutes Renny Omalley [facility] Start: 04-18-2023 Telephone encounter Evelyn Black RN General Surgery Comment on above: [employer] Start: 04-07-2023 Telephone encounter Guillermo Martinez DO Work Phone: Gastroenterology Comment on above: Appointment Start: 04-05-2023 End: 04-05-2023 ambulatory Imad Asaad Other [employer] Other Start: 04-05-2023 Telephone encounter Imad Asaad [facility] Start: 03-29-2023 ambulatory Facility:[facility] Start: 03-26-2023 ambulatory Facility:[id number] Start: 03-26-2023 ambulatory Facility:[id number] Start: 03-24-2023 End: 03-24-2023 ambulatory Imad Asaad Other [employer] Other Start: 03-24-2023 Telephone encounter Imad Asaad [facility] Start: 03-23-2023 End: 03-23-2023 Emergency department patient visit CONSTRUCTION RIGGER-C Judi Youssef Work Phone: [facility] Work Phone: Start: 03-22-2023 End: 03-22-2023 ambulatory Imad Asaad Other [employer] Other Start: 03-22-2023 Telephone encounter Imad Asaad [facility] Start: 03-09-2023 End: 03-09-2023 ambulatory Imad Asaad Other [employer] Other Start: 03-09-2023 Telephone encounter Imad Asaad [facility] Start: 03-01-2023 End: 03-01-2023 ambulatory Imad Asaad Other [employer] Other Start: 03-01-2023 Telephone encounter Imad Asaad [facility] Start: 02-19-2023 End: 02-19-2023 Emergency department patient visit Zabrina Patton [facility] Start: 02-15-2023 End: 02-15-2023 Emergency department patient visit CONSTRUCTION RIGGER-C Judi Youssef Work Phone: [facility] Work Phone: Start: 11-30-2022 End: 12-01-2022 ambulatory JUDI YOUSSEF Facility:[facility] Start: 11-27-2022 End: 11-28-2022 ambulatory JUDI YOUSSEF Facility:[facility] Start: 11-26-2022 End: 11-26-2022 ambulatory Imad Asaad Other [employer] Other Start: 11-26-2022 Telephone encounter Imad Asaad [facility] Start: 11-04-2022 End: 11-04-2022 Admission to same day surgery center CONSTRUCTION RIGGER-C Judi Youssef Work Phone: [facility] [place] Work Phone: Start: 11-04-2022 End: 11-04-2022 ambulatory CONSTRUCTION RIGGER-C Judi Youssef Work Phone: [facility] Work Phone: Start: 11-01-2022 End: 11-02-2022 ambulatory JUDI YOUSSEF Facility:[facility] Start: 10-26-2022 End: 10-26-2022 Emergency department patient visit CONSTRUCTION RIGGER-C Judi Youssef Work Phone: [facility] Work Phone: Start: 09-21-2022 End: 09-21-2022 ambulatory JUDI YOUSSEF Facility:[facility] Start: 09-18-2022 End: 09-18-2022 ambulatory BALTAZAR GEORGES . Facility:[facility] Start: 09-14-2022 End: 09-14-2022 ambulatory EUN WILSON . Facility:[facility] Start: 09-07-2022 End: 09-07-2022 ambulatory Imad Asaad Other [employer] Other Start: 09-07-2022 Telephone encounter Imad Asaad [facility] [employer] Start: 09-06-2022 End: 09-07-2022 ambulatory JUDIJOSE MANUEL UGALDEMER Facility:[facility] Start: 08-20-2022 End: 08-20-2022 ambulatory BALTAZAR GEORGES . Facility:[facility] Start: 08-17-2022 End: 08-18-2022 ambulatory JUDI YOUSSEF Facility:[facility] Start: 08-11-2022 End: 08-12-2022 ambulatory JUDI YOUSSEF Facility:[facility] Start: 08-08-2022 End: 08-08-2022 ambulatory KATHRINLYNNE VANCE Facility:[facility] Start: 07-22-2022 End: 07-22-2022 Patient encounter procedure Ospinanoemi FORBES [facility] Start: 07-21-2022 End: 07-21-[address] NORA WINN Facility:[facility] Start: 07-15-2022 ambulatory JUDI YOUSSEF Facility: [facility] Start: 07-12-2022 Encounter for genera l adult medical examination without abnormal findings JUDI YOUSSEF [facility] Start: 07-08-2022 End: 07-09-2022 ambulatory JUDI YOUSSEF [...] End: 04-29-2022 Lab Drop off Anai MERARY [facility] Start: 04-14-2022 End: 04-14-2022 Patient encounter procedure Monique Marquez [facility] Start: 03-27-2022 End: 03-30-2022 Evaluation and management of inpatient SHAIKH Juan Luis ANNELIESEStephanieTARIQ Facility:[facility] Start: 03-01-2022 End: 03-01-2022 Patient encounter procedure Monique Marquez [facility] Start: 02-02-2022 End: 02-02-2022 ambulatory BALTAZAR GEORGES . Facility: Start: 01-28-2022 End: 01-28-2022 Patient encounter procedure Monique Marquez [facility] Start: 01-11-2022 End: 01-11-2022 Patient encounter procedure Anai FORBES [facility] Start: 12-24-2021 End: 12-24-2021 Patient encounter procedure JHOANA Castro ABAD [facility] [place] Start: 08-13-2019 End: 08-16-2019 Evaluation and management of inpatient LEONA MORTENSEN Facility[facility] Procedures Date Procedure Procedure Detail Performing Clinician Start: 08-30-2024 Glucose blood reagent strip Obdulio Muro i, MD Work Phone: Start: 08-30-2024 Glucose blood reagent strip Obdulio Muro i, MD Work Phone: Start: 08-30-2024 BASIC METABOLIC PANEL W/ REFLEX TO MG FOR LOW K Chad Mclaughlin MD Work Phone: Start: 08-30-2024 Blood [...] Hodge MD Work Phone: Start: 05-11-2024 Esophagogastroduodenoscopy CONSTRUCTION RIGGER-C Judi morales Work Phone: Start: 07-14-2023 Esophagoscp rig transoral hypopharynx crv esoph Evelyn Black RN Start: 05-25-2023 Esophageal motility study w/interp&rpt Evelyn Black RN Start: 03-23-2023 Computed tomography of abdomen and pelvis with contrast CONSTRUCTION RIGGER-C Judi Youssef Work Phone: Start: 02-15-2023 Computed tomography of abdomen and pelvis with contrast CONSTRUCTION RIGGER-C Judi Youssef Work Phone: Start: 11-04-2022 CT of small intestine CONSTRUCTION RIGGER-C Judi Youssef Work Phone: Start: 10-26-2022 Computed tomography of abdomen and pelvis with contrast CONSTRUCTION RIGGER-C Judi Youssef Work Phone: Start: 01-11-2022 Esophagogastroduodenoscopy Anai FORBES Start: 05-13-2021 Esophagogastroduodenoscopy JHOANA PERR Y Start: 09-30-2020 Esophagogastroduodenoscopy JHOANA BACAR Y Start: 03-13-2020 Colonoscopy Kulwant Hodge MD Work Phone: Start: 03-13-2020 Colonoscopy JHOANA MELGOZA Start: 01-30-2020 Esophagogastroduodenoscopy JHOANA PULIDO Y Start: 08-15-2019 FLUOROSCOPY OF UPPER GI AND SMALL BOWEL USING OTHER CONTRAST ORESTES CONDON Start: 05-17-2019 Colonoscopy JHOANA MELGOZA Start: 05-17-2019 Esophagogastroduodenoscopy JHOANA PULIDO Y Start: 03-02-2019 Hernia surgical mesh (physical object) JHOANA MELGOZA Comment on above: Dr. Mortensen in [place]. Hernia repair JHOANA MELGOZA Hysterectomy JHOANA MELGOZA Plan of Treatment Date Care Activity Detail Author Start: 03-13-2030 Screening for malignant neoplasm of colon [facility] Start: 11-29-2024 End: 11-29-2024 Patient encounter procedure 11/29/2024 11:00 AM EDT Office Visit [facility] [address] [place] [id number] Kulwant Hodge MD [address] [place] [address] [facility] Start: 08-31-2024 End: 08-30-2025 Basic metabolic 2000 panel - Serum or Plasma Basic Metabolic Panel Lab Routine Ileus (HCC) Generalized abdominal pain Hypokalemia Expected: 08/31/2024, Expires: 08/30/2025 [facility] Comment on above: Expected: 08/31/2024, Expires: 5 Start: 08-31-2024 End: 08-30-2025 Magnesium [Mass/volume] in Serum or Plasma Magnesium Lab Routine Ileus (HCC) Generalized abdominal pain Hypokalemia Expected: 08/31/2024, Expires: 08/30/2025 [facility] Comment on above: Expected: 08/31/2024, Expires: Start: 08-17-2024 End: 08-17-2025 Radiologic exam swallow function contrast study FL MODIFIED BARIUM SWALLOW W VIDEO Imaging Routine Other dysphagia Expected: 08/17/2024, Expires: 08/17/2025 [facility] Comment on above: Expected: 08/17/2024, Expires: Start: 08-17-2024 End: 08-17-2024 Egd transoral biopsy single/multiple ESOPHAGOGASTRODUODENOSCOPY BIOPSY Other dysphagia 08/17/2024 12:58 PM [facility] Start: 07-13-2024 End: 07-13-2024 Patient encounter procedure [facility] Comment on above: Arrived Start: 06-22-2024 Shingles vaccine (2 of 2) Shingles vaccine (2 of 2) [facility] Start: 06-20-2024 End: 06-20-2025 Basic metabolic 1998 panel - Serum or Plasma Basic metabolic panel Lab Routine Hypoglycemia Expected: 06/20/2024 (Approximate), Expires: 06/20/2025 [facility] Comment on above: Expected: 06/20/2024 (Approximate), Expi res: 06/20/2025 Start: 06-20-2024 End: 06-20-2025 C peptide [Mass/volume] in Serum or Plasma --fasting C PEPTIDE FASTING Lab Routine Hypoglycemia Expected: 06/20/2024 (Approximate), Expires: 06/20/2025 [facility] Work Phone: Comment on above: Expected: 06/20/2024 (Approximate), Expi res: 06/20/2025 Start: 06-20-2024 End: 06-20-2025 Hepatic function 2000 panel - Serum or Plasma Hepatic function panel Lab Routine Hypoglycemia Expected: 06/20/2024 (Approximate), Expires: 06/20/2025 [facility] Comment on above: Expected: 06/20/2024 (Approximate), Expi res: 06/20/2025 Start: 06-20-2024 End: 06-20-2025 Insulin, fasting Insulin, fasting Lab Routine Hypoglycemia Expected: 06/20/2024 (Approximate), Expires: 06/20/2025 [facility] Comment on above: Expected: 06/20/2024 (Approximate), Expi res: 06/20/2025 Start: 06-20-2024 End: 06-20-2025 Insulin-like growth factor 2 Insulin-like growth factor 2 Lab Routine Hypoglycemia Expected: 06/20/2024 (Approximate), Expires: 06/20/2025 [facility] Comment on above: Expected: 06/20/2024 (Approximate), Expi res: 06/20/2025 Start: 06-20-2024 End: 06-20-2025 Proinsulin Proinsulin Lab Routine Hypoglycemia Expected: 06/20/2024 (Approximate), Expires: 06/20/2025 [facility] Comment on above: Expected: 06/20/2024 (Approximate), Expi res: 06/20/2025 Start: 05-11-2024 [facility] Start: 05-06-2024 COVID-19 Vaccine ( season) COVID-19 Vaccine ( season) [facility] Start: 05-06-2024 Influenza vaccination Influenza Vaccine (#1) [facility] Start: 04-05-2024 Influenza vaccination Flu vaccine (#1) [facility] Start: 05-06-2023 Covid-19 Vaccine ( season) Covid-19 Vaccine ( season) [facility] Start: 05-06-2023 Influenza vaccination [facility] Start: 09-05-2022 DEPRESSION ASSESSMENT DEPRESSION ASSESSMENT [facility] Start: 01-01-2022 COVID-19 VACCINE (4 - Pfizer series) COVID-19 VACCINE (4 - Pfizer series) [facility] Start: 2020 SHINGRIX VACCINE (1 of 2) SHINGRIX VACCINE (1 of 2) [facility] Start: 2015 COLOGUARD (FIT-DNA) COLOGUARD (FIT-DNA) [facility] Start: 2015 Colonoscopy COLONOSCOPY [facility] Start: 2015 COLORECTAL CANCER SCREENING COLORECTAL CANCER SCREENING [facility] Start: [address] COLONOGRAPHY [facility] Start: 2015 DIABETES SCREEN DIABETES SCREEN [facility] Start: 2015 Diabetes Screening Diabetes Screening [facility] Start: 2015 FECAL OCCULT BLOOD FECAL OCCULT BLOOD [facility] Start: 2015 Lipid 1996 panel - Serum or Plasma Lipid Screening [facility] Start: 2015 LIPID SCREEN LIPID SCREEN [facility] Start: 2015 [facility] Start: 2015 SIGMOIDOSCOPY SIGMOIDOSCOPY [facility] Start: 2010 Lipid panel [facility]ids [facility] Start: 2010 Mammography [facility] Start: 2010 Screening for malignant neoplasm of breast [facility] Start: 2005 Diabetes screen Diabetes screen [facility] Start: 2000 HPV TESTING HPV TESTING [facility] Start: 2000 Screening for malignant neoplasm of cervix [facility] Start: 1991 PAP TESTING PAP TESTING [facility] Start: 1991 Screening for malignant neoplasm of cervix Pap Smear [facility] Start: 1989 DTaP/Tdap/Td vaccine (1 - Tdap) DTaP/Tdap/Td vaccine (1 - Tdap) [facility] Start: 1989 Hepatitis B vaccine (1 of 3 - 19+ 3-dose series) Hepatitis B vaccine (1 of 3 - 19+ 3-dose series) [facility] Start: 1989 Urine microalbumin profile [facility] Start: 1988 HEPATITIS C SCREENING HEPATITIS C SCREENING [facility] Start: 1988 Hepatitis C screening Hepatitis C screen [facility] Start: 1988 HIV SCREENING HIV SCREENING [facility] Start: 1985 HIV screening HIV screen [facility] Start: 1982 Depression Monitoring Depression Monitoring [facility] Start: 1982 Depression Screen Depression Screen [facility] Start: 1970 COVID-19 VACCINE (#1) COVID-19 VACCINE (#1) [facility] Start: 1970 HEPATITIS B (1 of 3 - 3-dose series) HEPATITIS B (1 of 3 - 3-dose series) [facility] Start: 1970 Hepatitis B Vaccine (1 of 3 - 3-dose series) Hepatitis B Vaccine (1 of 3 - 3-dose series) [facility] Start: 1970 Screening for malignant neoplasm of colon [facility] End: 09-18-2024 Basic Metabolic Panel w/ Reflex to MG Basic Metabolic Panel w/ Reflex to MG Lab Routine Daily for 3 Weeks starting 08/29/2024 until 09/18/2024, 2 completed [facility] Comment on above: Daily for 3 Weeks starting 08/29/2024 un til 09/18/2024, 2 completed End: 09-18-2024 CBC W Auto Differential panel - Blood CBC with Auto Differential Lab Routine Daily for 3 Weeks starting 08/29/2024 until 09/18/2024, 2 completed [employer] [facility] Comment on above: Daily for 3 Weeks starting 08/29/2024 un til 09/18/2024, 2 completed End: 07-29-2024 EGD - THERAPEUTIC, EUS, OR TUBE INTERVENTIONS EGD - THERAPEUTIC, EUS, OR TUBE INTERVENTIONS Endoscopy Routine Gastroparesis 1 Occurrences starting 07/29/2023 until 07/29/2024 [facility] Work Phone: Comment on above: 1 Occurrences starting 07/29/2023 until 07/29/2024 End: 05-16-2024 Esophageal motility study w/interp&rpt MANOMETRY ESOPHAGEAL Endoscopy Routine Nausea 1 Occurrences starting 05/16/2023 until 05/16/2024 [facility] Work Phone: Comment on above: 1 Occurrences starting 05/16/2023 until 05/16/2024 Esophageal motility study w/interp&rpt MANOMETRY ESOPHAGEAL Endoscopy Routine Nausea 05/25/2023 [facility] Work Phone: End: 06-14-2024 Gastric emptying imaging study NM GASTRIC EMPTYING SOLID Radiology Routine Nausea 1 Occurrences starting 05/16/2023 until 06/14/2024 [facility] Work Phone: Comment on above: 1 Occurrences starting 05/16/2023 until 06/14/2024 Glucose [Mass/volume] in Serum or Plasma POCT glucose Point of Care Testing Routine 4X Daily until discontinued starting 08/28/2024 [facility] [employer] Comment on above: 4X Daily until discontinued starting Oxygen therapy [Minimum Data Set] Initiate Oxygen Therapy Protocol Respiratory Care Routine As Needed until discontinued starting 08/17/2024 [facility] [employer] Work Phone: Comment on above: As Needed until discontinued starting Oxygen therapy [Minimum Data Set] Initiate Oxygen Therapy Protocol Respiratory Care Routine As Needed until discontinued starting 08/28/2024 [facility] [employer] Work Phone: Comment on above: As Needed until discontinued starting Patient Education [facility] Work Phone: Patient referral [facility] Work Phone: SURGICAL PATHOLOGY [facility] Work Phone: Comment on above: Release Upon Ordering for 1 Occurrences starting 07/14/2023, 1 completed [facility] Immunizations Immunization Date Immunization Notes Care Provider [facility] 04-27-2024 zoster vaccine recombinant Kulwant Hodge MD Work Phone: [facility] 06-15-2022 SARS-CoV-2 (COVID-19 ) [id number] Yolanda Lou [facility] 06-09-2022 influenza, seasonal, injectable Kulwant Hodge MD Work Phone: [facility] 06-09-2022 influenza virus vaccine, unspecified formulation Nurse 2 Work Phone: [facility] 03-18-2022 SARS-CoV-2 mRNA (pmknygiozrc-ydcg-npj jett) vaccine Ospina SALAM [facility] 11-06-2021 SARS-CoV-2 (COVID-19 ) mRNA BNT-162b2 vax Ospina SALAM [facility] 05-06-2021 influenza virus vaccine, unspecified formulation JHOANA MELGOZA [facility] 02-26-2021 SARS-CoV-2 (COVID-19 ) mRNA BNT-162b2 vax JHOANA ABAD [facility] 02-05-2021 SARS-CoV-2 (COVID-19 ) mRNA BNT-396l5 vax Ospina SALAM [facility] Comment on above: Result Comment: 2021: [id number] NEGATED: Highlighted row has not occurred!04-14-2022 influenza virus vaccine, unspecified formulation Monique Marquez [facility] Payers Date Payer Category Payer [facility] [id number] 2022 Unknown RINA CASTRO PPO [id number] 2022-Present [phone] [address] [place] [address] PPO [id number] 2018 Private Health Insurance [id number] 2018 Private Health Insurance [facility] CHOICE PLUS [id number] 2018-Present [phone] [address] [place] [address] HMO [id number] 1970 Unknown [id number] 2.16.840.1.718916.3.579.2 .647 1970 Unknown [id number] 2.16.840.1.803279.3.579.2 .593 1970 Unknown [id number] 2.16.840.1.552981.3.579.2 .593 1970 Unknown [id number] 2.16.840.1.152199.3.579.2 .593 1970 Unknown [id number] 2.16.840.1.218085.3.579.2 .593 1970 Unknown [id number] 2.16.840.1.669630.3.579.2 .593 1970 Unknown [id number] 2.16.840.1.280029.3.579.2 .593 1970 Unknown [id number] 2.16.840.1.257140.3.579.2 .593 1970 Unknown [id number] 2.16.840.1.425448.3.579.2 .593 1970 Unknown [id number] 2.16.840.1.837962.3.579.2 .593 1970 Unknown [id number] 2.16.840.1.420999.3.579.2 .593 1970 Unknown [id number] 2.16.840.1.399808.3.579.2 .593 1970 Unknown [id number] 2.16.840.1.679274.3.579.2 .593 1970 Unknown [id number] 2.16.840.1.712670.3.579.2 .593 1970 Unknown [id number] 2.16.840.1.793757.3.579.2 .593 1970 Unknown [id number] 2.16.840.1.366706.3.579.2 .593 1970 Unknown [id number] 2.16.840.1.638963.3.579.2 .593 1970 Unknown [id number] 2.16.840.1.147002.3.579.2 .593 1970 Unknown [id number] 2.16.840.1.107107.3.579.2 .593 1970 Unknown [id number] 2.16.840.1.776949.3.579.2 .593 1970 Unknown [id number] 2.16.840.1.296222.3.579.2 .593 1970 Unknown [id number] 2.16.840.1.124660.3.579.2 .356 1970 Unknown [id number] 2.16.840.1.256505.3.579.2 .356 1970 Unknown [id number] 2.16.840.1.077353.3.579.2 .1286 1970 Unknown [id number] 2.16.840.1.535854.3.579.2 .1286 1970 Unknown [id number] 2.16.840.1.920305.3.579.2 .1286 1970 Unknown [id number] 2.16.840.1.407218.3.579.2 .1286 1970 Unknown [id number] 2.16.840.1.968750.3.579.2 .727 1970 Unknown [id number] 2.16.840.1.020131.3.579.2 .727 1970 Unknown [id number] 2.16.840.1.327211.3.579.2 .727 1970 Unknown [id number] 2.16.840.1.076062.3.579.2 .727 1970 Unknown [id number] 2.16.840.1.627783.3.579.2 .1259 1970 Unknown [id number] 2.16.840.1.118686.3.579.2 .1259 1970 Unknown [id number] 2.16.840.1.762075.3.579.2 .176 1970 Unknown [id number] 2.16.840.1.809509.3.579.2 .175 1959 Medicaid [id number] 1959 Self-pay [id number] 1959 Unknown [id number] 1959 Unknown [id number] Medicare Medicare [id number] Medicare Medicare [id number] Unknown [id number] 2.16.840.1.379443.3.579.2 .531 Unknown [id number] 2.16.840.1.793841.3.579.2 .531 Worker's Compensation Industrial Self Ins [facility] [id number] Social History Date Type Detail Facility Start: 12-03-2021 End: 08-15-2024 Tobacco smoking status Ex-smoker (finding) [facility] Start: 08-12-2020 End: 08-28-2024 Sex Assigned At Female [facility] Tobacco smoking status Never [facility] Start: 1970 Sex Assigned At Female [facility] End: 09-05-2011 History of tobacco use Current smoker [facility] Work Phone: End: 09-05-2011 History of tobacco use Cigarette Smoker [facility] Work Phone: Start: 04-28-2018 End: 08-15-2024 Tobacco use and exposure Smokeless tobacco non-user [facility] Work Phone: Start: 04-28-2018 End: 08-28-2024 Alcohol intake Current drinker of alcohol (finding) [facility] Start: 08-12-2020 End: 08-28-2024 History of Social function [facility] Start: 04-28-2018 End: 05-06-2023 Tobacco Comment still smokes [facility] Start: 04-28-2018 Alcohol Comment social [facility] Start: 1970 Sex Assigned At Not on file [facility] Start: 07-14-2023 Alcohol intake Ex-drinker (finding) [facility] Start: 06-08-2024 Tobacco smoking stat us NHIS Never smoked tobacco [facility] Start: 07-13-2024 Alcoholic beverage intake Lifetime non-drinker (finding) [facility] Start: 08-15-2024 Alcohol Comment [employer] Has the electric, Pulse[employer] s, oil, or water company threatened to shut off services in your home in past 12Mo No [employer] How often to you hav e a drink containing alcohol? Never [employer] (I/We) worried yelena franklin (my/our) food would run out before (I/we) got money to buy more. Never true [employer] Goals Date Patient Goal Desired Activity /State Functional Status Date Assessment Result Facility 02-16-2024 Functional Status N/A [facility] 02-19-2023 Functional Status N/A [facility] 07-22-2022 Functional Status N/A [facility] 04-14-2022 Functional Status N/A [facility] Clinical Notes 12-02-2021 to 08-30-2024 [...] 3.4* 3.8 CL 104 106 105 CO2 23 22 24 BUN 9 9 5* CREATININE 0.7 [...] infiltrate, which could represent pneumonia. Kaitlyn Romero, 08/30/2024, 6:45 AM Attestation signed by Serge Wild MD I personally evaluated the patient and directed the medical decision making with Resident after the physical/radiologic exam and laboratory values were reviewed and confirmed. Serge Wild MD Physical Therapy Facility/Department: [facility] RENAL//MED SURG Physical Therapy Initial Assessment Name: [...] this morning. 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 [facility] Internal Medicine Teaching Residency Program Inpatient Daily Progress Note Patient: Constantino Cardoso Date of : 1970 Acct: [id number] Room: 0324/0324-01 Admit date: 08/28/2024 Today's date: [...] Hypertension Gastroparesis and dysphagia - G-POEM at [facility] in 08/27 Mitral valve prolapse GERD Migraines and severe obeisty - s/p Eiwm-pt-T-bypass 2018 presents with a chief complaint of [...] this morning. 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 She had x-ray KUB and was [...] Problem: Intestinal obstruction (HCC) CT scan at [facility] -dilated large bowel with air-fluid level Transferred to [facility] -x-ray KUB: Nonobstructive bowel gas pattern, [...] Juan Dhaliwal MD Internal Medicine Resident, PGY-[facility] [place], [place] 08/29/2024, 6:54 AM Associated attestation - [...] this chart was generated using voice recognition [employer] dictation software. Although every effort was made to ensure the accuracy of this automated jewel bearing facer, some errors in jewel bearing facer may have occurred. Images from the original [...] Serge Wild MD documented in this encounter [facility] 08-30-2024 Hospital Discharge instructions Sky [...] cannot be sent through Care Everywhere.Bowel Obstruction (Uzbek)documented in this encounter [facility] 08-17-2024 Hospital Discharge instructions Larisa Jean [...] if your caregiver approves them. Only take funy-mnk-tdiwior or prescription medicines for pain, discomfort, or [...] Document Reviewed: 12/20/2012 ExitCare Patient Information 2013 [employer] .EGD DISCHARGE INSTRUCTIONS Activity: Rest today. No [...] neck pain documented in this encounter [facility] 07-13-2024 History of Present illness [...] times daily cholecalciferol (Vitamin D-3) 50 MCG (1999 [place]) capsule 1 capsule, Daily dicyclomine (Bentyl) 20 [...] months (around 10/13/2024). documented in this encounter [facility] 06-20-2024 History of Present illness Narrative Constantino [...] weeks (around 07/11/2024). documented in this encounter [facility] 05-14-2024 Note [facility] Note Reason for cardiology [...] Arrhythmia, Hypertension, and NSVT (nonsustained ventricular tachycardia) (CMS/[facility]). Surgical History She has a past [...] to vasovagal r (more content not included)... [facility] 05-11-2024 Procedure note [facility] 04-26-2024 Evaluation note Authored April 26, [...] twice or three times daily if needed. [facility] Work Phone: 1(958) 569-225207-15-2024 [facility] Reason for [...] hiatal hernia and acid (more content not included)...[facility] 02-16-2024 Evaluation + Plan note Diagnostic Tests Pending * Urine Culture 02/16/24 [facility] Reason for [...] valve prolapse, and NSVT (nonsustained ventricular tachycardia) ([facility]). Surgical History She has a past [...] 04/30/2019 PROT 6.3 08/ (more content not included)...[facility] 08-25-2023 NoteHNO ID: [id number] Author: Ellis Mayberry DO Service: ? Author [...] August 25, 2023 TIME: 2:59 PM CSN: [id number] [facility]12-[facility] NoteQ3 Patient Name: Constantino Cardoso Procedure Date: 08/25/2023 2:38 PM Date of : 1970 Admit Type: Outpatient Age: 53 Gender: Female Note Status: Finalized Attending MD: Marques Bradley MD, [id number] Procedure: Upper GI endoscopy Indications: Gastroparesis- for [...] the patient. Procedure Code(s): --- Professional --- 15104 Diagnosis Code(s): --- Professional --- K44.9 Z98.890 CPT copyright 2020 [employer]. All rights reserved. Attending Participation: I personally performed the entire procedure. Scope In: 2:59:10 PM Scope Out: 3:37:20 PM MD Marques Rainey MD 08/25/2023 3:41:00 PM This report has been signed electronically by Marques Bradley MD Number of Addenda: 0 Note Initiated On: 08/25/2023 2:38 [facility]11-24-2023 Note HNO ID: [id number] Author: Evelyn Black RN Service: ? Author Type: Registered Nurse Type: Progress Notes Filed: 07/29/2023 11:18 AM Note Text: [facility]11-24-2023 History of Present illness Narrative* Evelyn Black RN - 07/29/2023 11:17 AM EST e [facility] Instructions* Patient Instructions* Melissa Montalvo RD - [...] High Protein, Atkins, Boost Glucose Control, Owyn, Montara Breakfast Essentials Light Start mixed with Fairlife fat free or 1% milk. -Check www.bariatricfusion.com or www.[employer].com for additional options. Take small bites, eat slowly, chew food well, and always eat protein first. Separate eating and drinking by 30 min before and after. Aim for >64 oz water/day. Take small sips and avoid straws. Liquids should be sugar-free, no calories, no carbonation, no caffeine. Protein juarez (rtibfem0j, Isopure, Gatorade protein), electrolyte drinks (Gatorade or Powerade zero, sugar free liquid IV or Drip Drop), sugar free jello and sugarfree popsicles are also acceptable. Nutrition Monitoring & Evaluation: increase PO intake >75% of estimated needs, weight check and patient update Need for Follow up: based on surgery status documented in [facility]-2023 NoteHNO ID: [id number] Author: Melissa Montalvo RD Service: ? Author Type: Registered Dietitian Type: Progress Notes Filed: 07/22/2023 4:06 PM Note Text: [facility] Nutrition Therapy: Virtual Consult - Initial Assessment I have communicated my name and active licensure. The patient?s identity and physical location were verified at the time of this visit. Either the patient or their legal sales representatives has been informed of the risks and [...] High Protein, Atkins, Boost Glucose Control, Owyn, Montara Breakfast Essentials Light Start mixed with Fairlife fat free or 1% milk. -Check www.bariatricfusion.com or www.[employer].Freeze Tag for additional options. Take small bites, eat slowly, chew food well, and always eat protein first. Separate eating and drinking by 30 min before and after. Aim for >64 oz water/day. Take small sips and avoid straws. Liquids should be sugar-free, no calories, no carbonation, no caffeine. Protein juarez (nwvpyks8r, Isopure, Gatorade protein), electrolyte drinks (Gatorade or [...] active for work on her feet as [employer], however no regular exercise at this time due to not feeling well enough and little energy. [place] body weight: 159 lbs. 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 Recommendation was a GPOEM. Will consult with surgeon next week regarding next POC for pt. Pt VU. documented in [facility] encounter[facility] History of Present illness Narrative* Melissa Montalvo, AMBROCIO - 07/22/2023 1:15 PM EST [facility] Nutrition Therapy: Virtual Consult - Initial Assessment I have communicated my name and active licensure. The patient s identity and physical location wereverified at the time of this visit. Either the patient or their legal sales representatives has been informed of the risks and [...] High Protein, Atkins, Boost Glucose Control, Owyn, Montara Breakfast Essentials Light Start mixed with Fairlife [...] calories, no carbonation, no caffeine. Protein juarez (dkafmnu8t, Isopure, Gatorade protein), electrolyte drinks (Gatorade or [...] significant for adult onset weight gain (maintains dnvaqw659 lbs, highest 220 lbs in 2018). Greatest [...] active for work on her feet as [employer], however no regular exercise at this time due to not feeling well enough and little energy. [place] body weight: 159 lbs. 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 Procedure Code(s): --- Professional --- 70900 Diagnosis Code(s): --- Professional --- K44.9 K31.89 Z98.890 R10.13 CPT copyright 2020 [employer]. All rights reserved. Attending Participation: I personally performed the entire procedure. Scope In: 10:40:19 AM Scope Out: 10:50:37 AM MD Marques Rainey MD 07/14/2023 10:53:09 AM This report has been signed electronically by Marques Bradley MD Number of Addenda: 0 Note Initiated On: 07/14/2023 10:24 [facility]11-09-2023 Nurse Note* Mónica Spaulding RN - 07/14/2023 [...] RN In Department: GASTROENTEROLOGY documented in this encounterPromedica [facility]11-08-2023 NoteHNO ID: [id number] Author: Brennen Shaw, PhD Service: ? Author Type: Physician Type: Progress Notes Filed: 07/19/2023 10:07 AM Note Text: [facility] BARIATRIC SURGERY BEHAVIORAL HEALTH EVALUATION DATE OF SERVICE: July 13, 2023 TIME OF SERVICE: 2:10 PM-3:29 PM COST CENTER: [facility] CPT CODE: - 29037 Brief Emotional/Behavioral Assessment with scoring/documentation - [id number] Virtual Psych Diagnostic Eval BILLING CODE: ENDO PSYL MAIN 86207/Marco DATE OF FIRST SERVICE THIS CYCLE: July 13, 2023 SESSION #: 1 BMI Surgical Pathway Visit type: Bariatric Surgeon Visit I have communicated my name and active licensure. The patient's identity and physical location were verified at the time of this visit. Either the patient or their legal sales representatives has been informed of the risks and benefits of -- and alternatives to -- treatment through a remote evaluation and consents to proceed with the evaluation remotely. Zoom for [facility] IDENTIFYING INFORMATION: Ms. Constantino Cardoso is [...] other people who have undergone the procedure (chcf Specific areas of understanding that should be [...] during the binge episod (more content not included)...[facility]09-22-2023 Miscellaneous Notes* Telephone Encounter - Evelyn Black [...] Pt agreed with plan. documented in this encounterProm[facility]09-[facility]-2023 NoteHNO ID: [id number] Author: Nabil Bell RT(R) Service: Nuclear Medicine [...] safety can be found using this link: [email or web address] %20-%20Diagnostic%20Nuclear%20Medicine%20Procedures.pdf SIGNATURE: RT Charmaine(R) PATIENT NAME: Constantino Cardoso DATE: May 26, 2023 TIME: 7:17 AM PAGER/CONTACT #:[facility]09-20-2023 NoteHNO ID: [id number] Author: Pedro Gonzalez LPN Service: ? Author Type: LICENSED NURSE Type: Progress Notes Filed: 05/25/2023 4:15 PM Note Text: Name: Constantino Cardoso [facility]#: [id number] Date: 05/25/2023 ESOPHAGEAL MANOMETRY TEST Indication: Nausea [...] patient tolerated the test without difficulty. .[facility] History of Present illness Narrative* Pedro Gonzalez LPN - 05/25/2023 3:55 PM EDT Name: Constantino Cardoso [facility]#: [id number] Date: 05/25/2023 ESOPHAGEAL MANOMETRY TEST Indication: Nausea [...] difficulty. .Pedro Gonzalez LPN documented in this encounterPromed[facility]09-11-2023 Miscellaneous Notes* Telephone Encounter - Evelyn Black [...] after a gastric bypass. documented in this encounterPromedica Toledo Hospital09-01-2023 NoteHNO ID: [id number] Author: Marques Bradley MD Service: ? Author [...] for internal providers or letter via the [employer] for external providers. Chief Complaint: [...] Marques Bradley MD Date: 05/12/2023 Time: 8:15 [facility]08-28-2023 Miscellaneous Notes* Telephone Encounter - Evelyn Black RN - 05/02/2023 9:12 AM EDT [facility] SPECIALTY CARE COORDINATION TELEPHONE ENCOUNTER Chief complaint & duration dysphagia. Type of procedure: hernia repair hiatal with Dr. MORTENSEN in [place] February of 2019. Sending OP notes Nursing assessment (subjective/objective) . pain in chest area and getting worse Went to [place] ED March 2023 who told her she needed a stent in her heart..but her c/o were difficulty swallowing and sent pt home and referred her to [facility] [employer] and was there in the hospital for [...] appt after records obtained documented in this encounterPromedica Toledo Hospital08-22-2023 Miscellaneous Notes* Telephone Encounter - Evelyn Black RN - 04/26/2023 2:00 PM EDT [facility] SPECIALTY CARE COORDINATION TELEPHONE ENCOUNTER Second attempt to contact this pt. Pt has upcoming information, and unable to complete any chart prep, history, symptoms, testing etc. LVM and call back number. documented in this encounterPromedica Toledo Hospital08-17-2023 Evaluation note* Encounter Date Diagnosis Assessment Notes Treatment Notes Treatment Clinical Notes Apr, Esophageal dysmotility (ICD-10 - K22.4) Apr, Esophageal spasm (ICD-10 - K22.4) Apr, Nausea & vomiting (ICD-10 - R11.2) Patinet reports that she still has nausea but no vomiting Patient reports that she is to see Dr. Strong at [facility] Patient is to start dicyclomine 20 mg 4 times daily sent to [facility] today RTO 6 weeks Apr, Dysphagia (ICD-10 - R13.10) [employer] Other 08-14-2023 Miscellaneous Notes* Telephone Encounter - Evelyn Black RN - 04/18/2023 2:13 PM EDT [facility] SPECIALTY CARE COORDINATION TELEPHONE ENCOUNTER Contacted pt regarding a referral from Dr Martinez's office. LVM and call back number. documented in this encounterPromedica Toledo Hospital08-03-2023 Miscellaneous Notes* Telephone Encounter - Yancy Lopez - 04/07/2023 1:15 PM EDT Referral rec'd documented in this encounterPromedica Toledo Hospital06-17-2023 Evaluation + Plan note Extracted from: [...] XR Wrist 3+ Views Right [facility]06-17-2023 Hospital Discharge instructions Patient Education 02/19/2023 01:41:18 [...] are safe for you. General instructions Take esfc-zji-dtifyyj and prescription medicines only as told by [...] provider. Document Revised: 12/29/2020 Document Reviewed: 12/29/2020 [employer] Patient Education 2022 Localler. Follow Up Care 02/19/2023 00:51:16 With:JUDI YOUSSEF Address: [address] [place] [address] [phone] Business (1) When:02/22/2023 Comments:Take the pain medication as prescribed as needed for pain. Please follow-up with your primary care doctor in the next 2 to 3 days for further evaluation management. Please return to the ED for any new or worsening symptoms or [facility]08-10-2022 Hospital Discharge instructions Patient Education 04/14/2022 15:31:37 [...] water added (diluted fruit juice). Eat bland, uwld-lx-arwaft foods in small amounts as you are able. These foods include bananas, applesauce, rice, lean meats, toast, and crackers. Avoid fluids that contain a lot of sugar or caffeine, such as energy drinks, sports drinks, and soda. Avoid alcohol. Avoid spicy or fatty foods. General instructions Take vqed-aka-znhkzkp and prescription medicines only as told by your health care provider. Drink enough fluid to keep your urine pale yellow. Wash your hands often using soap and water. If soap and water are not available, use hand interior design director. Make sure that all people in [...] eating and drinking to prevent dehydration. Take genr-vqe-cpkbipd and prescription medicines only as told by [...] 08/22/2006 Document Revised: 12/14/2019 Document Reviewed: 01/30/2019 [employer] [place] Patient Education 2019 Loc[employer]er. Follow Up Care 01/28/2022 13:58:23 With:Monique Marquez CNP Address: When:3 months [facility] 05-26-2022 Hospital Discharge [...] drinks. ?Tomatoes and foods made with tomatoes. ?Emerald or spicy foods. ?Chocolate and peppermint. Do not drink alcohol. General instructions Take nhwg-ban-cefmgse and prescription medicines only as told by [...] 11/11/2004 Document Revised: 12/18/2018 Document Reviewed: 12/18/2018 [employer] [place] Patient Education 2020 Localler. Follow Up Care 01/13/2022 12:36:01 With:Monique Marquez CNP Address: When:3 months [facility] 05-09-2022 Hospital Discharge instructions Patient Education 01/11/2022 09:56:58 Endoscopy, Care After Procedure [facility] Endoscopy Care After Procedure [...] Document Re-Released: 02/13/2007 ExitCare Patient Information 2009 [employer]. 01/11/2022 09:56:58 Pearce's Esophagus Pearce's Esophagus Pearce's [...] drinks. ?Tomatoes and foods made with tomatoes. ?Emerald or spicy foods. ?Chocolate and peppermint. Do not drink alcohol. General instructions Take fbnu-uqq-wpfmtct and prescription medicines only as told by [...] 11/11/2004 Document Revised: 12/18/2018 Document Reviewed: 12/18/2018 [employer] [place] Patient Education 2020 Localler. Follow Up Care 12/03/2021 15:32:26 With:Anai FORBES Address: [address] [place] [address] Business (1) When:1 to 2 weeks Comments:Call for any problems. [facility]03-30-2022 Hospital Discharge instructions Follow Up Care 12/02/2021 10:32:32 With:JHOANA MELGOZA PA-C, URL Address: [address] [place] [address] When: Unknown [facility] Evaluation + Plan note Future Appointments Appointment Date:01/11/2022 09:40:00 AM Scheduled Provider: Location:[facility] Appointment Type:Surgery FT [facility] Evaluation + Plan note Future Appointments Appointment Date:04/14/2022 03:00:00 PM Scheduled Provider:Monique Marquez CNP Location:[facility] Appointment Type:[facility] Follow Up Future Scheduled Tests Radiology* NM Gastric Emptying Study 01/28/22 [facility] Evaluation + Plan note Future Appointments Appointment Date:04/14/2022 03:00:00 PM Scheduled Provider:Monique Marquez CNP Location:[facility] Appointment Type:[facility] Future Appointments Appointment Date:04/20/2022 12:00:00 PM Scheduled Provider: Location:.[facility] Appointment Type:US Abdominal/Pelvis () Appointment Date:06/02/2022 09:45:00 AM Scheduled Provider:Anai FORBES MD Location:[facility] Appointment Type[facility] Follow Up Future Scheduled Tests Laboratory* Fecal WBC Lactoferrin 04/14/22 * Giardia lamblia, Direct Detection EIA 04/14/22 * O & P Exam, Routine 04/14/22 * Clostridium difficile by PCR 04/14/22 * Enteric Panel by PCR 04/14/22 * CBC w/ Auto Diff 04/14/22 * Comprehensive Metabolic Panel 04/14/22 Radiology* US Abdomen Complete 04/20/22 [facility] Evaluation + Plan note Future Appointments Appointment Date:06/02/2022 09:45:00 AM Scheduled Provider:Anai FORBES MD Location:[facility] Appointment Type:[facility] Follow Up Diagnostic Tests Pending * O & P Exam, Routine 04/29/22 * Giardia lamblia, Direct Detection EIA 04/29/22 [facility] note[facility] assessment information available [facility] Work Phone: Evaluation noteNo InformationNorth Great[employer] Other Evaluation note* Diagnosis Nausea- Primary Nausea alone Dysphagia, unspecified type documented in this encounter [facility] note* Diagnosis Nausea Nausea alone documented in this encounter [facility] note* Diagnosis Dysphagia, unspecified type Gastroparesis History of Pricilla fundoplication Personal history of surgery to other organs [facility] encounter [facility]* Diagnosis Gastroparesis- Primary Malnutrition of moderate degree (HCC) Malnutrition of moderate degree Gastro-esophageal reflux disease without esophagitis Esophageal reflux Overweight (BMI 25.0-29.9) Overweight Dietary counseling and surveillance Dietary surveillance and counseling documented in this encounter [facility] note* Diagnosis Gastroparesis- Primary documented in this encounter [facility] note* Diagnosis Onset Date Resolution Status Abdominal adhesions acute Dysphagia acute [facility] bowel [facility]: Evaluation note* Diagnosis Hypoglycemia- Primary Hypoglycemia, unspecified Encounter for dietary consultation [facility] Diagnosis Hypoglycemia Hypoglycemia, unspecified [facility]* Diagnosis Other dysphagia- Primary Other dysphagia documented in this encounter [facility] [employer] [facility] note* Diagnosis Ileus (HCC)- Primary Paralytic ileus Ileus (HCC) Paralytic ileus Generalized abdominal pain Abdominal pain, generalized Hypokalemia Hypopotassemia Primary hypertension Unspecified essential hypertension Gastroesophageal reflux disease with esophagitis without hemorrhage Major depressive disorder Major depressive disorder, single episode, unspecified Hypokalemia Hypopotassemia Generalized abdominal pain Abdominal pain, generalized documented in this encounter [facility] HealthHistory and physical note Author Jennie Ayon [facility] May 11, 2024 10:16am Note Date/Time May 11, 2024 10:16am [facility] [address] [place] [address] Gastroenterology H&P Signed Patient: Constantino Cardoso MR#: [id number] : 1970 Acct:[id number] Age/Sex: 53 / F Adm Date: 4 Loc: Room: Type: [facility] Attending Dr: Jennie Ayno MD Copies to: MD Judi Kamara CNP~ [...] signed by Jennie Ayon MD> 05/11/24 1016 [facility] [employer] Work Phone: History general Narrative - Reported* Type Description Date Medical History mitral valve prolapse Medical History gallstones Medical History Acid reflux Medical History Hiatal Hernia Medical History headache Surgical History hysterectomy Surgical History cholecystectomy Surgical History hiatal hernia repair Hospitalization History see above Hospitalization History kindey infections hospit alized x3 [employer] Other Hospital course Narrative No data available for this section [facility] Hospital Discharge instructions No data available for this section [facility] Additional Instructions Follow-up with your primary care doctor Return to ED if develop worsening symptoms or [facility] Work Phone: Hospital Discharge instructions Additional Instructions If your symptoms return/worsen or you develop any further concerns or symptoms please see your doctor or return to the emergency department immediately. Please be sure to continue follow-up with the service specialist and with your scheduled EGD and further testing.[facility] Work Phone: Hospital Discharge instructions Additional [...] problems. -Follow up with PCP. -Office number [phone]. [facility] Work Phone: Progress note No data available for this section [facility] for referral (narrative)* Diagnostic Procedure Only (Routine) - Authorized Specialty Diagnoses / Procedures [facility] Referred To Contact MOLECULAR & FUNCTIONAL IMAGING Diagnoses Nausea Procedures NM GASTRIC EMPTYING SOLID GASTRIC EMPTYING STUDY Marques Bradley MD [address] [place] [address] Molecular & Functional Imaging [address] [place] [address] Referral ID Status Reason Start Date Expiration Date Visits Requested Visits Authorized [id number] Authorized Auto-Generat ed Referral 05/16/2023 06/14/2024 1 1 * Outpatient Procedure (Routine) - Authorized Specialty Diagnoses / Procedures [facility] Referred To Contact [facility] Diagnoses Nausea Procedures MANOMETRY ESOPHAGEAL ESOPHAGEAL MOTILITY STUDY W/INTERP&RPT Marques Bradley MD [address] [place] [address] [facility] Disease [address] [address] Referral ID Status Reason Start Date Expiration Date Visits Requested Visits Authorized [id number] Authorized Auto-Generat ed Referral 05/16/2023 05/16/2024 1 1 [facility] for referral (narrative)* Outpatient Procedure (Routine) - Closed Specialty Diagnoses / Procedures Referred By [facility] Referred To Contact [facility] Diagnoses Dysphagia, unspecified type Gastroparesis History of Pricilla fundoplication Procedures EGD - THERAPEUTIC, EUS, OR TUBE INTERVENTIONS ESOPHAGOGASTRODUODENOSCOPY TRANSORAL DIAGNOSTIC STOMACH SURGERY PROCEDURE UNLISTED Marques Bradley MD [address] [place] [address] [address] Referral ID Status Reason Start Date Expiration Date V isits Requested Visits Authorized [id number] Closed Auto-Generate d Referral 05/27/2023 05/27/2024 1 1 [facility] for referral (narrative)* Outpatient Procedure (Routine) - Authorized Specialty Diagnoses / Procedures Referred By Eileen mueller Referred To Contact [facility] Diagnoses Gastroparesis Procedures EGD - THERAPEUTIC, EUS, OR TUBE INTERVENTIONS ESOPHAGOGASTRODUODENOSC OPY TRANSORAL DIAGNOSTIC STOMACH SURGERY PROCEDURE UNLISTED Marques Bradley MD [facility] [place] [address] [address] Referral ID Status Reason Start Date Expiration Date Visits Requested Visits Authorized [id number] Authorized Auto-Generat ed Referral 07/29/2024 1 1 [facility] for visit Narrative* Outpatient Procedure (Routine) - Closed Specialty Diagnoses / Procedures Referred By Eileen mueller Referred To Contact [facility] Diagnoses Dysphagia, unspecified type Gastroparesis History of Pricilla fundoplication Procedures EGD - THERAPEUTIC, EUS, OR TUBE INTERVENTIONS ESOPHAGOGASTRODUODENOSCOPY TRANSORAL DIAGNOSTIC STOMACH SURGERY PROCEDURE UNLISTED Marques Bradley MD [address] [place] [address] [address] Referral ID Status Reason Start Date Expiration Date V isits Requested Visits Authorized [id number] Closed Auto-Generate d Referral 05/27/2023 05/27/2024 1 1 [facility] Summary Purpose Family History No Family [...] Directives No November 23, 2 018 10:23am Date Activated Date Inactivated Comments 08/28/2024 3:16 PM Hospital Course Note MR#: [id number] [facility] Pt. Name: Constantino Cardoso Admitted: [...] a 49-year-old female, who was [facility] from [facility] with acute abdominal pain. The pain has started on Tuesday while at work. 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 The pain feels similar to when she was here in April during her stay. During that time, she was told there was nothing left for Dr. Mortensen to do and she has been following up with GI specialist in [place]. She is actually due to have an [...] Referred By Eileen t Referred To Contact Radiology Diagnoses Other dysphagia Procedures FL MODIFIED BARIUM SWALLOW W VIDEO Justin Lucero MD [address] [place] [address] Referral ID Status Reason Start Date Expiration Date Visits Re quested Visits Authorized [id number] Open 08/17/2024 08/17/2025 1 1 Additional Source Comments INFORMATION SOURCE (unrecogn ized section and content) DATE CREATED AUTHOR 06/03/2020 [facility] DATE CREATED AUTHOR AUTHOR'S ORGANIZ ATION 01/17/2023 [facility] DATE CREATED AUTHOR AUTHOR'S ORGANIZ ATION 04/02/2023 [facility] DATE CREATED AUTHOR AUTHOR'S ORGANIZ ATION 08/26/2023 [facility] DATE CREATED AUTHOR AUTHOR'S ORGANIZ ATION 12/03/2023 [facility] DATE CREATED AUTHOR AUTHOR'S ORGANIZ ATION 02/17/[address] [facility] DATE CREATED AUTHOR AUTHOR'S ORGANIZ ATION 02/19/2024 [facility] DATE CREATED AUTHOR AUTHOR'S ORGANIZ ATION 04/10/2024 [facility] DATE CREATED AUTHOR AUTHOR'S ORGANIZ ATION 05/14/2024 [facility] DATE CREATED AUTHOR AUTHOR'S ORGANIZ ATION 06/09/2024 [facility] DATE CREATED AUTHOR AUTHOR'S ORGANIZ ATION 06/21/2024 [facility] DATE CREATED AUTHOR AUTHOR'S ORGANIZ ATION 07/15/2024 [facility] EPIC DATE CREATED AUTHOR AUTHOR'S ORGANIZ ATION 08/19/2024 [facility] DATE CREATED AUTHOR AUTHOR'S ORGANIZ ATION 09/05/2024 [facility] Care Team (unrecognized sect ion and content) Team Status: Active Member Role Status Dates DONI Stovall Primary Care Provider Active Team Status: Active Member Role Status Dates DONI Stovall Primary Care Provider Active Start: April 13, [...] Active Member Role Status Dates Judi Youssef CONSTRUCTION RIGGER-C Primary Care Provider Active Start: May 11, 2024 Jennie Ayon MD Attending Provider, Other Provider Active Start: May 11, 2024 Team Status: Inactive Member Role Status Dates Judi Youssef CONSTRUCTION RIGGER-C Primary Care Provider Active Start: June 19, 2024 End: June 19, 2024 Jennie Ayon MD Attending Provider Active Start: June 19, 2024 End: June 19, 2024 Team Status: Inactive Member Role Status Dates Judi Youssef CONSTRUCTION RIGGER-C Primary Care Provider Active Conner Griffith DO Emergency Provider Active Team Status: Inactive Member Role Status Dates Jennie Ayon MD Attending Provider Active Judi Youssef CONSTRUCTION RIGGER-C Primary Care Provider Active Team Status: Inactive Member Role Status Dates Judi Youssef CONSTRUCTION RIGGER-C Primary Care Provider Active Pete Thakkar DO Emergency Provider Active Community Life Director Relationship Specialty Start Date End Date Ny Joel Panchal PCP - General Family Medicine 04/26/18 LyssaRafa major [address] [place] [phone] Referring General Surgery 04/26/18 Community Life Director Relationship Specialty Start Date End Date DomenicoJoel blanco PCP - General Family Medicine 04/26/18 Rafa Rangel [address] [place] [phone] Referring General Surgery 04/26/18 Community Life Director Relationship Specialty Start Date End Date DomenicoJoel blanco Onel PCP - General Family Medicine 04/26/18 Rafa Rangel [address] [facility] [address] [place] [address] Referring General Surgery 04/26/18 Community Life Director Relationship Specialty Start Date End Date DomenicoJoel blanco Onel PCP - General Family Medicine 04/26/18 Rafa Rangel [address] [facility] [address] [place] [address] Referring General Surgery 04/26/18 Community Life Director Relationship Specialty Start Date End Date Joel Alejandra PCP - General Family Medicine 04/26/18 Rafa Rangel [address] [facility] [address] [place] [address] Referring General Surgery 04/26/18 Community Life Director Relationship Specialty Start Date End Date Joel Alejandra PCP - General Family Medicine 04/26/18 Rafa Rangel [address] [facility] [address] [place] [address] Referring General Surgery 04/26/18 Community Life Director Relationship Specialty Start Date End Date Joel Alejandra PCP - General Family Medicine 04/26/18 Rafa Rangel [address] [place] [address] Referring General Surgery 04/26/18 Community Life Director Relationship Specialty Start Date End Date Joel Alejandra PCP - General Family Medicine 04/26/18 Rafa Rangel [address] [place] [phone] Referring General Surgery 04/26/18 Community Life Director Relationship Specialty Start Date End Date DomenicoJoel blanco PCP - General Family Medicine 04/26/18 Raf[address] [place], [place] [address] [place] [address] Referring General Surgery 04/26/18 Community Life Director Relationship Specialty Start Date End Date Joel Alejandra PCP - General Family Medicine 04/26/18 Rafa Rangel [address] [place], [place] [address] [place] [address] Referring General Surgery 04/26/18 Community Life Director Relationship Specialty Start Date End Date Joel Alejandra PCP - General Family Medicine 04/26/18 Rafa Rangel [address] [place] [address] Referring General Surgery 8/22/18 Community Life Director Relationship Specialty Start Date End Date Unallocated, Miracle Jesus MD [address] [place] [phone] PCP - General 04/25/23 Judi Youssef MD [address] [place] [address] Referring Physician Family Medicine 04/25/23 Community Life Director Relationship Specialty Start Date End Date Unallocated, Miracle Jesus MD [address] [place] [id number] PCP - General 04/25/23 Judi Youssef MD [address] [place] [address] Referring Physician Family Medicine 04/25/23 Community Life Director Relationship Specialty Start Date End Date Unallocated, Miracle Jesus MD [address] [place] [phone] PCP - General 04/25/23 Judi Youssef MD [address] [place] [address] Referring Physician Family Medicine 04/25/23 Community Life Director Relationship Specialty Start Date End Date Unallocated, Miracle Jesus MD [address] [place] [address] PCP - General 04/25/23 Judi Youssef MD [address] [place] [address] Referring Physician Family Medicine 04/25/23 Community Life Director Relationship Specialty Start Date End Date No, Pcp PCP - General 08/17/24 Community Life Director Relationship Specialty Start Date End Date Judi Youssef S, DAIRY ASSOCIATE - TOOL STRAIGHTENER [address] [place] [phone] PCP - General 08/29/24 Goals (unrecognized section and content) Goals may be documented in a n alternate section REASON FOR VISIT (unrecogniz ed section and content) Reason Comments 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 Reason Onset Date Comments Procedure 05/25/2023 Manometry Esopha geal Specialty Diagnoses / Procedures [facility] To Contact [facility] Diagnoses Nausea Procedures MANOMETRY ESOPHAGEAL ESOPHAGEAL MOTILITY STUDY W/INTERP&RPT Marques Bradley MD [address] [place] [address] [place] [phone] Referral ID Status Reason Start Date Expiration Date V isits Requested Visits Authorized [id number] Closed Auto-Generate d Referral 05/16/2023 05/16/2024 1 1 Reason Comments Results Reason Comments Patient Education Assessment Reason Comments Hypoglycemia NEW Reason Comments Hypoglycemia Specialty Diagnoses / Procedures [facility] Referred To Contact Diagnoses Other dysphagia Other dysphagia [R13.19] Procedures TN EGD TRANSORAL BIOPSY SINGLE/MULTIPLE TN ESOPHAGOGASTRODUODENOSCOPY TRANSORAL DIAGNOSTIC TN EGD BALLOON DILATION ESOPHAGUS <30 MM DIAM ESOPHAGOGASTRODUODENOSCOPY BIOPSY Justin Lucero MD [address] [facility] [address] [place] [address] [facility] [address] [place] [address] Referral ID Status Reason Start Date Expiration Date Visits Re quested Visits Authorized [id number] 1 1 Reason Comments Abdominal Pain Specialty Diagnoses / Procedures [facility] Referred To Contact Diagnoses Ileus (HCC) Intestinal obstruction (HCC) Obdulio Justice MD [address] [address] [facility] [address] [place] [address] Referral ID Status Reason Start Date Expiration Date Visits Re quested Visits Authorized [id number] 1 1 Source Comments (unrecognize d section and content) In the event this informatio n is protected by the Federal Confidentiality of Alcohol and Drug Abuse Patient Records regulations: The Federal rules restrict any use of the information to criminally investigate or prosecute any alcohol or drug abuse patient.[facility] the event this information is protected by the Federal Confidentiality of Alcohol and Drug Abuse Patient Records regulations: The Federal rules restrict any use of the information to criminally investigate or prosecute any alcohol or drug abuse patient.[facility] the event this information is protected by the Federal Confidentiality of Alcohol and Drug Abuse Patient Records regulations: The Federal rules restrict any use of the information to criminally investigate or prosecute any alcohol or drug abuse patient.[facility] the event this information is protected [...] or prosecute any alcohol or drug abuse patient.[facility] the event this information is protected by the Federal Confidentiality of Alcohol and Drug Abuse Patient Records regulations: The Federal rules restrict any use of the information to criminally investigate or prosecute any alcohol or drug abuse patient.[facility] the event this information is protected by the Federal Confidentiality of Alcohol and Drug Abuse Patient Records regulations: The Federal rules restrict any use of the information to criminally investigate or prosecute any alcohol or drug abuse patient.[facility] the event this information is protected by the Federal Confidentiality of Alcohol and Drug Abuse Patient Records regulations: The Federal rules restrict any use of the information to criminally investigate or prosecute any alcohol or drug abuse patient.[facility] the event this information is protected by the Federal Confidentiality of Alcohol and Drug Abuse Patient Records regulations: The Federal rules restrict any use of the information to criminally investigate or prosecute any alcohol or drug abuse patient.[facility] the event this information is protected by the Federal Confidentiality of Alcohol and Drug Abuse Patient Records regulations: The Federal rules restrict any use of the information to criminally investigate or prosecute any alcohol or drug abuse patient.[facility] the event this information is protected by the Federal Confidentiality of Alcohol and Drug Abuse Patient Records regulations: The Federal rules restrict any use of the information to criminally investigate or prosecute any alcohol or drug abuse patient.[facility] the event this information is protected by the Federal Confidentiality of Alcohol and Drug Abuse Patient Records regulations: The Federal rules restrict any use of the information to criminally investigate or prosecute any alcohol or drug abuse patient.[facility] Scheduled Active and Recently Administ ered Medications [...] Change - Provider: Chung Renee APRN - PACK OUT OPERATOR) PRN Medication Order 08/15/2024 08/16/2024 08/17/2024 0.9 [...] 25 mg/min. 1211 (Given - Provider: Makayla Olson RN) docusate sodium (COLACE) capsule 100 mg 100 mg, Oral, DAILY, First dose on Tue08/29/24 at 1100, Until Discontinued, Do not crush or break. 1156 (Given - Provider: Enedina Madden RN) 0942 (Given - Provider: Jermain Renee RN) enoxaparin (LOVENOX) injection 40 mg 40 [...] Madden RN) 0942 (Given - Provider: Jermain Renee RN) ketorolac (TORADOL) injection 30 mg (COMPLETED) 30 mg, IntraVENous, ONCE, 1 dose, On Tue08/28/24 at 1800 1733 (Given - Provider: Maine Espinoza, VICKY) lisinopril (PRINIVIL;ZESTRIL) tablet 10 mg 10 mg, [...] 0942 (Given - Provider: Jermain Renee RN) pantoprazole (PROTONIX) 40 mg in sodium chloride [...] Oconnor RN) 0942 (Given - Provider: Jermain Renee, VICKY)2100 (Due) sertraline (ZOLOFT) tablet 50 mg 50 mg, Oral, DAILY, First dose on Tue08/28/24 at 1545, Until Discontinued 1516 (Held by provider - Provider: Chad Mclaughlin MD - Reason: Other - Comment: NPO)1545 (Automatically Held) 0900 (Automatically Held)211 (Unheld by provider - Provider: Sky Pearce MD) 0942 (Given - Provider: Jermain Renee, VICKY) sodium chloride flush 0.9 % injection 5-40 [...] 2001 (Given - Provider: Brown Richard RN) 926 (Not Given - Provider: Enedina Madden RN - Reason: IV Fluid Infusing)193 (Not Given - Provider: Cady Oconnor RN [...] not administer for more than 5 days. 0861 (Given - Provider: Brown Richard RN) 0740 (Given - Provider: Enedina Madden, VICKY)1418 (Given - Provider: Enedian Madden RN) labetalol (NORMODYNE;TRANDATE) injection 10 mg [...] Midline or Central Line = 20 mL/lumen 0423 (Given - Provider: Brown Richard RN) Linked [...] BE BASED ON THE PRIMARY CLINICAL RECORDS. [facility]. provides no warranty or guarantee of the accuracy or completeness of information in this document.
[2024-09-06 08:10] LABS: Alanine Aminotransferase 24 U/L (14-59); Albumin Level 3.8 g/dL (3.4-5.0); Alkaline Phosphatase 150 U/L (46-116); Anion Gap 12.4; Aspartate Amino Transferase 21 U/L (15-37); BUN Creatinine Ratio 27.1; Bilirubin Total 0.3 mg/dL (0.2-1.0); Calcium 9.3 mg/dL (8.5-10.1); Carbon Dioxide 27.2 mmol/L (21.0-32.0); Chloride 107 mmol/L (98-107); Estimated GFR (African America >60 (>=60 mL/min/1.73m^2); Estimated GFR (Non-African Ame >60 (>=60 mL/min/1.73m^2); Globulin 3.7 g/dL; Glucose 111 mg/dL (74-106); Magnesium 2.1 mg/dL (1.8-2.4); Potassium 3.6 mmol/L (3.5-5.1); Sodium 143 mmol/L (136-145); Total Protein 7.5 g/dL (6.4-8.2)
== END 2024-09-06 07:30 | disposition home or self-care (01) ==
LOC: LAB 07:30
PROVIDERS: PCP Nurse Practitioner Family; Visit Provider Nurse Practitioner Family
DX: K56.7 Ileus, unspecified (principal)
CPT/HCPCS: 36415; 80053; 83735

== ENCOUNTER 2024-09-14 08:32 | Outpatient (OUT) | payer BC, SELFPAY ==
--- NOTE | 2024-09-14 08:38 | US_ITS ---
[address] [address] Patient Name: CONSTANTINO CARDOSO MRN: [id number] date: 1970 Sex: F Assigned Patient Location: US Current Patient Location: US Accession/Order Number: [id number] Exam Date: 09/14/2024 08:40 Report Date: 09/14/2024 09:21 At the request of: STEPHANIE YOUSSEF Procedure: US renal BI EXAMINATION: US renal BI HISTORY: Renal Lesion COMPARISON: CT abdomen pelvis 08/28/2024 TECHNIQUE: Ultrasound examination was performed of the kidneys and urinary bladder. FINDINGS: RIGHT KIDNEY: Contains a 2.0 x 1.8 x 1.6 cm slightly complex cyst without appreciable internal blood flow. Normal parenchymal echogenicity. Color Doppler demonstrates blood flow within the kidney. Kidney: 10.9 x 4.9 x 4.8 cm LEFT KIDNEY: Contains a nonobstructing 3 mm stone. Normal parenchymal echogenicity. Color Doppler demonstrates blood flow within the kidney. Kidney: 10.4 x 5.0 x 5.8 cm BLADDER: No visible wall thickening, mass, or calculi. US/US renal BI IMPRESSION: 1. Right renal lesion seen on recent CT study favors a slightly complex, but benign cyst. 2. Nonobstructing left nephrolithiasis. Electronically authenticated by: RUSH FALCON Date: 09/14/2024 09:21
== END 2024-09-14 08:33 | disposition home or self-care (01) ==
LOC: US 08:32
PROVIDERS: PCP Nurse Practitioner Family; Visit Provider Nurse Practitioner Family
DX: N20.0 Calculus of kidney (principal); N28.9 Disorder of kidney and ureter, unspecified
CPT/HCPCS: 76775

== ENCOUNTER 2024-09-28 14:43 | Emergency (ER) | payer BC, SELFPAY ==
[2024-09-28] VITALS (12 sets, daily range): BP systolic 114–156; BP diastolic 74–84; PULSE 45–57; TEMP 36.5; O2SAT 96; BMI 28.3
--- NOTE | 2024-09-28 15:02 | XR_ITS ---
The [address] [address] Patient Name: CONSTANTINO CARDOSO MRN: [id number] date: 1970 Sex: F Assigned Patient Location: ER Current Patient Location: ER Accession/Order Number: [id number] Exam Date: 09/28/2024 15:24 Report Date: 09/28/2024 15:48 At the request of: NEO WILSON Procedure: XR chest 1V EXAM: XR chest 1V TECHNIQUE: Single AP view chest HISTORY: Shortness of breath COMPARISON: 08/28/2024 FINDINGS: The heart and mediastinum are unremarkable. The lung wolff are clear of any acute infiltrate, effusion or mass. No acute bony abnormality. XR/XR chest 1V IMPRESSION: No acute pulmonary disease. Electronically authenticated by: MARTA MARTINEZ Date: 09/28/2024 15:48
--- NOTE | 2024-09-28 15:02 | ECG_ITS ---
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
--- NOTE | 2024-09-28 15:03 | ED_ITS ---
HPI HPI - General Adult General Chief complaint: Upper Respiratory Infection Stated complaint: WEAK, SOB, ACHY Time Seen by Provider: 09/28/24 14:44 Source: patient Mode of arrival: Wheelchair History of Present Illness HPI narrative: Patient is a 54-year-old female well-known to this emergency department who presents to the ER for a 1 week history of weakness, fatigue, generalized body aching and pain. She states she was diagnosed with COVID last week at work, she states she went back to work 3 days ago but feels she is not getting any better. She has had no objective fevers. She states she also believes she has a UTI as her urine is dark and cloudy. She states she has been drinking fluids but still feels dehydrated. She has had no vomiting or diarrhea. She states she has pain with walking. She has had mild coughing but no significant sputum production or hemoptysis. Related Data Home Medications ?Medication ?Instructions ?Recorded ?Confirmed dicyclomine 20 mg tablet 20 mg PO QID 11/27/23 09/28/24 pantoprazole 40 mg tablet,delayed 40 mg PO DAILY 12/15/23 09/28/24 release cholecalciferol (vitamin D3) 50 50 mcg PO DAILY 04/13/24 09/28/24 mcg (2,000 unit) capsule lisinopril 10 mg tablet 10 mg PO DAILY 04/13/24 09/28/24 metoprolol succinate 50 mg 50 mg PO DAILY 04/13/24 09/28/24 tablet,extended release 24 hr sertraline 50 mg tablet 50 mg PO DAILY 04/13/24 09/28/24 Previous Rx's ?Medication ?Instructions ?Recorded ondansetron 4 mg disintegrating 4 mg PO Q8H PRN nausea and 04/13/24 tablet vomiting 3 days #10 tabs ibuprofen 800 mg tablet 800 mg PO Q8H PRN pain #20 tabs 06/24/24 ciprofloxacin HCl 500 mg tablet 500 mg PO Q12H 5 days #10 tabs 09/28/24 ondansetron 4 mg disintegrating 4 mg PO Q6H PRN nausea and 09/28/24 tablet vomiting #12 tabs Allergies Allergy/AdvReac Type Severity Reaction Status Date / Time cyclobenzaprine (From Allergy Severe Anaphylaxis Verified 09/28/24 14:51 Flexeril) Penicillins Allergy Intermediate Hives Verified 09/28/24 14:51 Opioid HPI Opioid Management Most Recent Opioid Data: Last Pain Scale 9 09/28/24 15:29 09/28/24 Last ED Pain Assessment 09/28/24 15:29 Last MAR Pain Assessment 09/28/24 15:17 Last ORT Total Score 0 11/27/23 09:50 11/27/23 Last ORT Risk Category Low Risk 11/27/23 09:50 11/27/23 Review of Systems ROS Constitutional Reports: chills; Denies: fever Ears, nose, mouth, and throat Reports: nasal congestion; Denies: throat pain Cardiovascular Denies: chest pain Respiratory Reports: shortness of breath and cough; Denies: change in phlegm color or coughing up blood Gastrointestinal Denies: nausea or vomiting Musculoskeletal Denies: back pain Integumentary/Breast Denies: rash Neurological Reports: weakness in extremities; Denies: numbness in extremities Hematologic/Lymphatic Denies: easy bruising or easy bleeding PFSH [facility] Medical History (Updated 09/28/24 @ 16:35 by EUN Hawkins) Partial obstruction of small intestine ?K56.600 - Partial intestinal obstruction, unspecified as to cause (ICD-10) Constipation ?K59.00 - Constipation, unspecified (ICD-10) Ileus ?K56.7 - Ileus, unspecified (ICD-10) Nausea and vomiting ?R11.2 - Nausea with vomiting, unspecified (ICD-10) GERD (gastroesophageal reflux disease) ?K21.9 - Gastro-esophageal reflux disease without esophagitis (ICD-10) Elevated troponin ?R77.8 - Other specified abnormalities of plasma proteins (ICD-10) Chronic upper abdominal pain ?R10.10 - Upper abdominal pain, unspecified (ICD-10) ?G89.29 - Other chronic pain (ICD-10) Epigastric abdominal pain ?R10.13 - Epigastric pain (ICD-10) Abdominal pain, chronic, generalized ?R10.84 - Generalized abdominal pain (ICD-10) ?G89.29 - Other chronic pain (ICD-10) Headache, migraine ?G43.909 - Migraine, unspecified, not intractable, without status migrainosus (ICD-10) Gastroparesis ?K31.84 - Gastroparesis (ICD-10) Mitral valve disorder ?I05.9 - Rheumatic mitral valve disease, unspecified (ICD-10) Surgical History 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 ?K95.89 - Other complications of other bariatric procedure (ICD-10) ?K22.4 - Dyskinesia of esophagus (ICD-10) History of hernia surgery ?Z98.890 - Other specified postprocedural states (ICD-10) ?Z87.19 - Personal history of other diseases of the digestive system (ICD-10) FH: cholecystectomy ?Z83.79 - Family history of other diseases of the digestive system (ICD-10) H/O: hysterectomy ?Z90.710 - Acquired absence of both cervix and uterus (ICD-10) Family History Father Family history of myocardial infarction Family history of cancer Grandmother Family history of diabetes mellitus Family history of stroke Sister Family history of hypertension Social History Within the past year, how often did you have a drink containing alcohol: never Within the past year, how many standard drinks containing alcohol did you have on a typical day: 1 or 2 Within the past year, how often did you have six or more drinks on one occasion: never Total score: 0 Score interpretation: A score less than 3 is consistent with normal alcohol consumption. 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 Known occupational exposures/hazards: No Highest level of school completed/degree received: high school graduate Do you want help with school or training: No Are you now , , , , never or living with a partner: In a typical week, how many times do you talk on the telephone with family, friends, or neighbors: 3 or more times per week How often do you get together with friends or relatives: 3 or more times per week How often do you attend yazidi or baptism services: never Do you belong to any clubs or organizations such as yazidi groups unions, fraternal or athletic groups, or school groups: no Total score: 2 Score interpretation: A score of greater than or equal to 2 indicates the lowest level of social isolation. Little interest or pleasure in doing things: several days Feeling down, depressed, or hopeless: not at all Feel stressed/tense/nervous/anxious/difficulty sleeping: not at all Due to disability, difficulty making decisions: No Do you think of yourself as: straight/heterosexual Gender Identity: female Exam Narrative Exam Narrative: Gen.: Awake, alert, in no distress Head: Normocephalic, atraumatic ENT: Moist mucous membranes Respiratory: No respiratory distress, lungs clear bilaterally Cardio: Regular rate and rhythm Gastrointestinal: Abdomen is soft, nondistended and nontender to palpation Extremities: Moves extremities equally Psych: Normal mood and affect Neuro: No focal neuro deficit Skin: Warm, dry, intact Constitutional Vital Signs, click to edit/add: Last Vital Signs Temp 97.7 F 09/28/24 14:52 Pulse 50 L 09/28/24 16:31 Resp 12 09/28/24 16:31 BP 156/81 H 09/28/24 16:31 Pulse Ox 96 09/28/24 14:52 O2 Del Method Room Air 09/28/24 14:52 Course Vital Signs Vital signs: Vital Signs Temperature 97.7 F 09/28/24 14:52 Pulse Rate 52 L 09/28/24 14:52 Respiratory Rate 20 09/28/24 14:52 Blood Pressure 136/84 09/28/24 14:52 Pulse Oximetry 96 09/28/24 14:52 Oxygen Delivery Method Room Air 09/28/24 14:52 Temperature 97.7 F 09/28/24 14:52 Pulse Rate 50 L 09/28/24 16:31 Respiratory Rate 12 09/28/24 16:31 Blood Pressure 156/81 H 09/28/24 16:31 Pulse Oximetry 96 09/28/24 14:52 Oxygen Delivery Method Room Air 09/28/24 14:52 Medical Decision Making MDM Narrative Medical decision making narrative: Patient medic with IV fluids, Zofran, Toradol. She is hemodynamically stable with unremarkable vital signs. She does have a mild UTI, evidence of mild dehydration and hypokalemia. She was given 50 mEq of potassium in the emergency department. Chest x-ray is unremarkable and she is discharged home with treatment for UTI. Cipro and Zofran given for home, she was given education and reassurance, follow-up with PCP and return to the ER if symptoms change or worsen. She was reevaluated by attending physician prior to discharge. Work note provided. SHARED APC VISIT, PHYSICIAN ATTESTATION: [id number] I performed a substantive part of the MDM during the patient?s E/M visit. I personally evaluated and examined the patient. I personally made or approved the documented management plan and acknowledge its risk of complications. Medical Records Medical records reviewed: Yes I reviewed the patient's medical records Lab Data Lab results reviewed: Yes I reviewed the patient's lab results Labs: Lab Results 09/28/24 09/28/24 Range/Units 15:05 15:16 WBC 9.4 (4.0-11.0) 10^3/uL RBC 4.69 (4.20-5.40) 10^6/uL Hgb 13.8 (12.0-16.0) g/dL Hct 41.9 (36.0-48.0) % MCV 89.3 (81.0-99.0) fL MCH 29.4 (26.7-34.0) pg MCHC 32.9 (29.9-35.2) g/dL RDW 13.0 (11.0-15.0) % Plt Count 439 (150-450) 10^3/uL MPV 9.2 L (9.5-13.5) fL Neut % (Auto) 72.3 (43.0-75.0) % Lymph % (Auto) 16.2 L (20.5-60.0) % [facility] % (Auto) 9.9 (1.7-12.0) % Eos % (Auto) 0.0 L (0.9-7.0) % Baso % (Auto) 0.1 L (0.2-2.0) % Neut # (Auto) 6.8 H (1.4-6.5) 10^3/uL Lymph # (Auto) 1.5 (1.2-3.8) 10^3/uL [facility] # (Auto) 0.9 H (0.3-0.8) 10^3/uL Eos # (Auto) 0.0 (0.0-0.7) 10^3/uL Baso # (Auto) 0.0 (0.0-0.1) 10^3/uL Abs Immat Gran (auto) 0.14 H (0.00-0.03) 10^3/uL Imm/Tot Granulo (auto) 1.5 H (0.0-0.5) % Sodium 139 (136-145) mmol/L Potassium 3.4 L (3.5-5.1) mmol/L Chloride 105 (98-107) mmol/L Carbon Dioxide 22.9 (21.0-32.0) mmol/L Anion Gap 14.5 BUN 41.0 H (7.0-18.0) mg/dL Creatinine 1.11 H (0.55-1.02) mg/dL Est GFR ( Amer) >60 (>=60 mL/min/1.73m^2) Est GFR (Non-Af Amer) 51 L (>=60 mL/min/1.73m^2) BUN/Creatinine Ratio 36.9 Glucose 136 H (74-106) mg/dL Lactate 2.4 H* (0.4-2.0) mmol/L Calcium 8.2 L (8.5-10.1) mg/dL Total Bilirubin 0.3 (0.2-1.0) mg/dL AST 22 (15-37) U/L ALT 58 (14-59) U/L Alkaline Phosphatase 109 (46-116) U/L Total Creatine Kinase 36 (26-192) U/L Troponin I High Sens 29.6 (4.0-51.3) pg/mL Total Protein 6.7 (6.4-8.2) g/dL Albumin 3.1 L (3.4-5.0) g/dL Globulin 3.6 g/dL Albumin/Globulin Ratio 0.9 Urine Color Yellow (YELLOW) Urine Clarity Clear (CLEAR) Urine pH 6.0 (5.0-9.0) Ur Specific [place] 1.025 (1.005-1.025) Urine Protein Trace (NEG/TRACE) mg/dL Urine Glucose (UA) Negative (NEGATIVE) mg/dL Urine Ketones Negative (NEGATIVE) mg/dL Urine Occult Blood Negative (NEGATIVE) Urine Nitrite Positive A (NEGATIVE) Urine Bilirubin Negative (NEGATIVE) Urine Urobilinogen 0.2 (0.2-1.0) EU/dL Ur Leukocyte Esterase Trace A (NEGATIVE) Urine RBC None seen (0-2) #/HPF Urine WBC 5-10 A (NONE SEEN) #/HPF Ur Squamous Epith Cells Few A (NONE/RARE) #/LPF Urine Crystals None seen (None Seen) #/HPF Urine Bacteria Moderate A (NONE SEEN) #/HPF Urine Casts None seen (NONE SEEN) #/LPF Urine Mucus None seen (NONE SEEN) Ur Culture Indicated? Yes Imaging Data Chest x-ray: Attestation: I have reviewed the pertinent imaging results. Radiologist's impression: ITS Impressions Chest X-Ray 09/28/24 15:02 IMPRESSION: No acute pulmonary disease. Electronically authenticated by: MARTA MARTINEZ Date: 09/28/2024 15:48 ECG Data Attestation: I personally reviewed and interpreted this ECG as follows: (Sinus bradycardia at a rate of [address] elevation or ectopy. EKG reviewed by attending physician) Discharge Plan Discharge Chief Complaint: Upper Respiratory Infection Clinical Impression: Generalized weakness, UTI (urinary tract infection), Mild dehydration, Acute hypokalemia Patient Disposition: Home, Self-Care Time of Disposition Decision: 16:35 Condition: Good Prescriptions / Home Meds: New ciprofloxacin HCl 500 mg tablet 500 mg PO Q12H 5 Days Qty: 10 0RF ondansetron 4 mg tablet,disintegrating 4 mg PO Q6H PRN (Reason: nausea and vomiting) Qty: 12 0RF No Action pantoprazole 40 mg tablet,delayed release (DR/EC) 40 mg PO DAILY lisinopril 10 mg tablet 10 mg PO DAILY metoprolol succinate 50 mg tablet extended release 24 hr 50 mg PO DAILY sertraline 50 mg tablet 50 mg PO DAILY cholecalciferol (vitamin D3) 50 mcg (2,000 unit) capsule 50 mcg PO DAILY ondansetron 4 mg tablet,disintegrating 4 mg PO Q8H PRN (Reason: nausea and vomiting) 3 Days Qty: 10 0RF dicyclomine 20 mg tablet 20 mg PO QID ibuprofen 800 mg tablet 800 mg PO Q8H PRN (Reason: pain) Qty: 20 0RF Print Language: Sinhala Instructions: Urinary Tract Infection in Women (ED), How to Recover from COVID- 19 at Home (ED) Referrals: STEPHANIE YOUSSEF [Primary Care Provider] - 1 week Discharge Date/Time: 09/28/24 16:45
[2024-09-28] MEDS: KETOROLAC TROMETHAMINE 30 MG/ML VIAL IVP (15:17)
[2024-09-28] MEDS: ONDANSETRON PF 4 MG/2 ML VIAL IV (15:17)
[2024-09-28] MEDS: 0.9 % SODIUM CHLORIDE 1,000 ML 1000 ML IV (15:17)
[2024-09-28 15:24] LABS: Bilirubin Urine NEGATIVE (NEGATIVE); Blood Urine NEGATIVE (NEGATIVE); Clarity Urine CLEAR (CLEAR); Color Urine YELLOW (YELLOW); Glucose Urine UA NEGATIVE (NEGATIVE); Ketones Urine NEGATIVE (NEGATIVE); Leukocyte Esterase Urine TRACE (NEGATIVE); Nitrite Urine POSITIVE (NEGATIVE); Protein Urine TRACE mg/dL (NEG/TRACE); Specific Gravity Urine 1.025 (1.005-1.025); Urobilinogen Urine 0.2 EU/dL (0.2-1.0)
[2024-09-28 15:26] LABS: Basophils Percent Auto 0.1 % (0.2-2.0); Hematocrit 41.9 % (36.0-48.0); Hemoglobin 13.8 g/dL (12.0-16.0); Immature Granulocytes Abs Auto 0.14 10^3/uL (0.00-0.03); Immature Granulocytes Pct Auto 1.5 % (0.0-0.5); Lymphocytes Absolute Auto 1.5 10^3/uL (1.2-3.8); Lymphocytes Percent Auto 16.2 % (20.5-60.0); Mean Corpuscular HGB Conc 32.9 g/dL (29.9-35.2); Mean Corpuscular Hemoglobin 29.4 pg (26.7-34.0); Mean Corpuscular Volume 89.3 fL (81.0-99.0); Mean Platelet Volume 9.2 fL (9.5-13.5); Monocytes Absolute Auto 0.9 10^3/uL (0.3-0.8); Monocytes Percent Auto 9.9 % (1.7-12.0); Neutrophils Absolute Auto 6.8 10^3/uL (1.4-6.5); Neutrophils Percent Auto 72.3 % (43.0-75.0); Platelet Count 439 10^3/uL (150-450); Red Blood Count 4.69 10^6/uL (4.20-5.40); White Blood Count 9.4 10^3/uL (4.0-11.0)
[2024-09-28 15:32] LABS: Bacteria Urine MODERATE #/HPF (NONE SEEN)
[2024-09-28 15:33] LABS: Cast Seen? NONE SEEN #/LPF (NONE SEEN); Crystals Seen? None Seen #/HPF (None Seen); Mucus Urine NONE SEEN (NONE SEEN); RBC Urine NONE SEEN #/HPF (0-2); Squamous Epithelial Cell Urine FEW #/LPF (NONE/RARE); Urine Culture Indicated YES
[2024-09-28 15:42] LABS: Creatine Kinase 36 U/L (26-192)
[2024-09-28 15:52] LABS: Alanine Aminotransferase 58 U/L (14-59); Albumin Globulin Ratio 0.9; Albumin Level 3.1 g/dL (3.4-5.0); Alkaline Phosphatase 109 U/L (46-116); Anion Gap 14.5; Aspartate Amino Transferase 22 U/L (15-37); BUN Creatinine Ratio 36.9; Bilirubin Total 0.3 mg/dL (0.2-1.0); Calcium 8.2 mg/dL (8.5-10.1); Carbon Dioxide 22.9 mmol/L (21.0-32.0); Chloride 105 mmol/L (98-107); Estimated GFR (African America >60 (>=60 mL/min/1.73m^2); Estimated GFR (Non-African Ame 51 (>=60 mL/min/1.73m^2); Globulin 3.6 g/dL; Glucose 136 mg/dL (74-106); Potassium 3.4 mmol/L (3.5-5.1); Sodium 139 mmol/L (136-145); Total Protein 6.7 g/dL (6.4-8.2); Troponin I High Sensitivity 29.6 pg/mL (4.0-51.3)
[2024-09-28 15:54] LABS: Lactate/Lactic Acid 2.4 mmol/L (0.4-2.0)
[2024-09-28] MEDS: POTASSIUM BICARBONATE/CIT 25 MEQ TABLET EFF 50 MEQ PO (16:07)
== END 2024-09-28 16:45 | disposition home or self-care (01) ==
PROVIDERS: Physician Assistant; Emergency Provider Emergency Medicine; PCP Nurse Practitioner Family
DX: E86.0 Dehydration (principal); E87.6 Hypokalemia; N39.0 Urinary tract infection, site not specified; R53.1 Weakness; Z86.16 Personal history of COVID-19; Z90.49 Acquired absence of other specified parts of digestive tract; Z90.710 Acquired absence of both cervix and uterus; Z87.891 Personal history of nicotine dependence
CPT/HCPCS: 36415; 71045; 80053; 81001; 82550; 83605; 84484; 85025; 87086; 87150; 87186; 93005; 96361; 96374; 96375; 99285; J1885; J2405

== ENCOUNTER 2024-11-27 12:59 | Outpatient (OUT) | payer BC, SELFPAY ==
[2024-11-28 03:07] LABS: Vitamin B12 379 pg/mL (232-1245)
== END 2024-11-27 13:00 | disposition home or self-care (01) ==
LOC: LAB 13:00
PROVIDERS: PCP Nurse Practitioner Family; Visit Provider Nurse Practitioner Family
DX: E55.9 Vitamin D deficiency, unspecified (principal); E53.8 Deficiency of other specified B group vitamins
CPT/HCPCS: 36415; 82306; 82607

== ENCOUNTER 2024-12-18 08:02 | Emergency (ER) | payer BC, SELFPAY ==
[2024-12-18 08:07] VITALS: BP 148/72; PULSE 52; TEMP 37; O2SAT 100; BMI 30.2
--- OUTSIDE RECORDS SUMMARY | 2024-12-18 08:15 | XMS_ITS | CCD ---
Author Organization [facility] Care Team Providers Care Marketing Services Rep Name Role Phone LEONA MORTENSEN Admitting Unavailable LEONA MORTENSEN Attending Unavailable KEVIN HERRERA Primary Care Unavailable KEVIN HERRERA Referring Unavailable [facility] Procedure Practitioner Unavailab ORESTES Cruz Surgeon Unavailable JUDI YOUSSEF Primary Care Physician [phone] DONI Youssef Primary Care Provider DO Conner Griffith Emergency Provider Jennie Ayon Unavailable MD Jennie Ayon Attending Provider DR JOHNATHAN RUDOLPH Attending Unavailibis RUDOLPH, DR JOHNATHAN Botello Consulting Unavailibis RUDOLPH, DR JOHNATHAN Botello Admitting UnavailJUDI Duarn Primary Care Unavailable JUDI YOUSSEF Primary Care [...] Admitting Unavailable FAB ., BALTAZAR Attending Unavailable MIKEAL, JUDI Primary Care Unavailable ARIANE RIZVI Consulting [...] Consulting Unavailable MIKAEL, JUDI Attending Unavailable MIKAEL, JDUI Primary Care Unavailable MIKAEL, JUDI Consulting Unavailable MIKAEL, JUDI Admitting Unavailable KWAME, DR CASSANDRA Chopra Consulting Unavailable MIKAEL, JUDI Attending Unavailable MIKAEL, JUDI Primary Care Unavailable JUDI YOUSSEF Consulting Unavailable DONI Youssef Primary Care Provider DO Conner Griffith Emergency Provider [phone] DO Pete Thakkar Emergency Provider [phone] [facility] Primary Care Provider Rafa Rangel Unavailable [phone] Renny Omalley Unavailable MARQUES BRADLEY Referring Unavailable [facility], [facility] Primary Care Unavailable [facility], [facility] Primary Care Unavailable KROH, MARQUES Patel Referring Unavailable KROH, MARQUES Patel Attending Unavailable IMER CHERRY Referring Unavailable [facility], [facility] Primary Care Unavailable [facility], [facility] Primary Care Unavailable KROH, MARQUES Patel Referring Unavailable KAITLYN TORRES Attending Unavailable KROHMARQUES Referring Unavailable [facility], [facility] Primary Care Unavailable MELISSA MONTALVO Attending Unavailable KROH, MARQUES Patel Referring Unavailable [facility], [facility] Primary Care Unavailable SLYSLY Attending Unavailable KROHMARQUES Referring Unavailable [facility], [facility] Primary Care Unavailable BRENNEN SHAW Attending Unavailable Orzech, Yolanda X Attending Unavailable Dasha Yolanda X Admitting Unavailable DONI Youssef Primary Care Provider MD Jennie Ayon Attending Provider Judi Youssef Primary Care Unavailable Asaad, Imad Admitting Unavailable Asaad, Imad Attending Unavailable Judi Youssef Primary Care Unavailable Asaad, Imad Admitting Unavailable Asaad, Imad Attending Unavailable Unallocated , [place] Provider Primary Care Provi christine Judi Youssef MD Unavailable No, Pcp Primary Care Provider UnavailJUSTIN Jenkins Admitting Unavailable JUSTIN LUCERO Attending Unavailable NO, PCP Primary Care Unavailable Mikael [employer] [facility] - Judi MENDOZA Primary Care Provide r SERGE WILD Consulting Unavailable AVASTHI, OBDULIO Admitting Unavailable AVASTHI, OBDULIO Attending Unavailable JUDI YOUSSEF Primary Care Unavailable AVASTHI, OBDULIO Consulting Unavailable LANDRY KINCAIDAR Attending Unavailable SANJIV, LANDRYAR Attending Unavailable SANJIV, LANDRYAR Attending Unavailable SANJIV, SAMAR Attending Unavailable Eliezer Lorenzo Admitting Unavailable Eliezer Lorenzo Attending Unavailable Orapryl Yolanda X Attending Unavailable Randy, Rush Consulting Unavailable MD Rush Padilla Consulting Unavailable Rosine, Rush Consulting Unavailable Rosine, Rush Consulting Unavailable Rosine, Rush Consulting Unavailable Rosine, Rush Consulting Unavailable Rosine, Rush Consulting Unavailable Rosine, Rush Consulting Unavailable Rosine, Rush Consulting Unavailable Eliezer Lorenzo Admitting Unavailable Eliezer Lorenzo Attending Unavailable Randy, Rush Consulting Unavailable MD Rush Padilla Consulting Unavailable Rosine, Rush Consulting Unavailable Rosine, Rush Consulting Unavailable Rosine, Rush Consulting Unavailable Rosine, Rush Consulting Unavailable Rosine, Rush Consulting Unavailable Rosine, Rush Consulting Unavailable Rosine, Rush Consulting Unavailable Nikki Zhang Unavailable NIKKI AYOUB Attending Unavailable COSME, AHMAD F Attending Unavailable COSME, AHMAD F Referring Unavailable COSME, AHMAD F Attending Unavailable Orzech, Yolanda X Attending Unavailable Orzech, Yolanda X Admitting Unavailable Orzech, Yolanda X Attending Unavailable Allergies Allergy Classification Reported Allergen(s) Allergy Type Date of Onset Reaction(s) Facility (9 sources) cyclobenzaprine; Translations: [CYCLOBENZAPRINE] Drug Allergy 04-28-20 18 Swelling of Lip/Tongue/Thr oat, Swelling of Lip/Tongue/Thr oat, throat swelling [facility] (10 sources) Penicillins; Translations: [PENICILLINS] Drug allergy (disorder) 09-02-[address] [facility] (20 sources) cyclobenzaprine; Translations: [cyclobenzaprine] Drug Allergy 04-28-20 18 Pharyngeal swelling (finding), Swelling, Other (See Comments) [facility] (20 sources) Penicillin; Translations: [penicillin] Drug Allergy 04-28-20 18 Swelling (morphologic abnormality), Swelling [facility] (12 sources) penicillAMINE Drug Allergy 04-26-20 24 rash [facility] (2 sources) cyclobenzaprine Drug Allergy 03-23-20 16 [facility] (1 source) traMADol Drug Allergy [facility] (1 source) traMADol Drug Allergy [facility] (1 source) cyclobenzaprine Drug Allergy 05-01-20 [facility] Repository (1 source) penicillAMINE Drug Allergy 05-01-20 [facility] Rep[facility] (1 source) Penicillins Drug allergy (disorder) 05-01-20 [facility] Rep[facility] (8 sources) penicillAMINE Drug Allergy 05-01-20 Rash [facility] (8 sources) Penicillins Drug Allergy 04-28-20 18 Rash, Swelling [facility] (2 sources) Penicillins Propensity to adverse reactions to drug 04-28-20 18 Other (See Comments), Rash, Swelling [facility] Medications Current Medications Medication Drug Class(es) Dates Sig (Normalized) Sig (Original) acarbose 25 mg oral tablet (7 sources) alpha-Glucosidase Inhibitor Start: 07-13-2024 End: 07-13-2025 take 1 tablet by mouth once daily acarbose 25 mg oral tablet 25 mg = 1 tab(s), Oral, Daily, Refills(s) 0 Start Date: 10/19/24 Status: Ordered Start: 07-13-2024 End: 07-13-2025 take 1 tablet by mouth twice daily acarbose (PRECOSE) 25 MG tablet Take 1 tablet by mouth 2 times daily 07/16/2024 Active Acetaminophen (13 sources) Start: 08-28-2024 acetaminophen (TYLENOL) tablet 650 [...] Refill(s) 0 Start Date: 01/14/20 Status: Ordered aspirin 81 mg delayed release oral tablet (3 sources) Platelet Aggregation Inhibitor, Nonsteroidal Anti-inflammatory Drug Start: 10-20-2024 take 1 tablet by mouth once daily aspirin 81 mg Oral EC Tab 81 mg = 1 tab(s), Oral, Daily, # 30 tab(s), Refills(s) 0, Pharmacy: [facility]/pharmacy #[id number], 170.2, cm, 10/19/24 17:25:00 EST, Height/Length Dosing, 90.5, kg, 10/19/24 17:25:00 EST, Weight Dosing Start Date: 10/20/24 Status: Ordered azithromycin 250 mg oral tablet (3 sources) Macrolide Antimicrobial Start: 02-16-2024 azithromycin 250 mg Tab 250 mg, Oral, As Directed, # 6 tab(s), Refills(s) 0 Start Date: 02/16/24 Status: Ordered cholecalciferol 0.05 mg oral capsule (12 sources) Vitamin D Start: 05-01-2024 take 1 capsule by mouth once daily cholecalciferol (Vitamin D-3) 50 MCG (1999 UT) capsule Take 1 capsule by mouth Daily 05/01/2024 Active estradiol 0.1 mg/ml vaginal cream (4 sources) Estrogen Start: 02-16-2024 Estrace 0.1 mg/g Cream 1 gm, Vaginal, As Directed, 42.5 gm, Refill(s) 3, Apply pea-sized amount around urethra every night x 3 weeks, then 2 times weekly for maintenance, [facility]/pharmacy #[id number], 170, cm, 02/16/24 [...] 12:01am hyoscyamine sulfate 0.125 mg oral tablet (12 sources) Start: 05-01-2024 take 1 tablet by [...] solution (1 source) beta-Adrenergic Serena Start: 08-28-2024 levETIRAcetam 750 mg oral tablet (5 sources) Start: 11-26-2024 take 1 tablet by mouth in the morning levETIRAcetam (Keppra) 750 MG tablet Indications: Seizure (CMS/HCC) Take 1 tablet (750 mg) by mouth in the morning and 1 tablet (750 mg) before bedtime. 60 tablet 2 11/26/2024 Active Start: 11-26-2024 take 1 tablet by ana th in the morning levETIRAcetam (Keppra) 750 MG tablet Indications: Seizure (CMS/HCC) Take 1 tablet (750 mg) by mouth in the morning and 1 tablet (750 mg) before bedtime. 60 tablet 2 11/26/2024 Active Start: 10-20-2024 End: 11-26-2024 take 1 tablet by mouth twice daily Keppra 500 mg Tab 500 mg = 1 tab(s), Oral, BID, # 60 tab(s), Refills(s) 0, Pharmacy: [facility]/pharmacy #[id number], 170.2, cm, 10/19/24 17:25:00 EST, Height/Length Dosing, 90.5, kg, 10/19/24 17:25:00 EST, Weight Dosing Start Date: 10/20/24 Status: Ordered 10 ml lidocaine hydrochloride 10 mg/ml injection (13 sources) Antiarrhythmic, Amide Local Anesthetic Start: 08-17-2024 End: 08-18-2024 take 1 dose intravenously once daily 1 mL, IntraDERmal, ONCE PRN, 1 dose, Starting on Tue08/17/24 at 1120, Until 08/18/24 at 1120, IV start, Pre-op (day of surgery) Start: 04-24-2018 LIDOCAINE VISC OUS 2 % solution lisinopril 10 mg oral tablet (15 sources) Angiotensin Converting Enzyme Inhibitor Start: 03-19-2024 End: 03-19-2025 take 1 tablet by mouth in the morning lisinopril 10 MG tablet Take 10 mg by mouth in the morning. 03/19/2024 03/19/2025 Active 50 ml magnesium sulfate 40 mg/ml injection (1 source) Start: 08-28-2024 Multi Vitamins oral tablet (1 source) Start: 10-20-2024 Multi Vitamins oral tablet 1 tab(s), Oral, Daily, 30 tab(s), Refill(s) 0, [facility]/pharmacy #[id number], 170.2, cm, 10/19/24 17:25:00 EST, Height/Length Dosing, 90.5, kg, 10/19/24 17:25:00 EST, Weight Dosing Start Date: 10/20/24 Status: Ordered naproxen 500 mg oral tablet (14 sources) [...] April 13, 2018 11:34am polyethylene glycol 3350 78399 mg powder for oral solution (8 sources) [...] 2023 12:00am May 11, 2024 8:09am sennosides, fdc 8.6 mg oral tablet (3 sources) Start: [...] for Constipation 60 tablet 08/30/2024 08/30/2024 Discontinued sertraline 50 mg oral tablet (14 sources) Serotonin Reuptake Inhibitor Start: 01-29-2024 take 1 tablet by mouth once daily sertraline 50 mg Tab 50 mg = 1 tab(s), Oral, Daily, Refills(s) 0 Start Date: 10/19/24 Status: Ordered Symbicort 160/4.5 inhalation aerosol with adapter (11 sources) Start: 01-14-2020 take 2 puff(s) by inhalation twice daily Symbicort 160/4.5 inhalation aerosol with adapter 2 puff(s), Inhalation, BID, Asthma Start Date: 01/14/20 Status: Ordered venlafaxine (8 sources) Serotonin and Norepinephrine Reuptake Inhibitor Venlafaxine HCl ER Active vitamin b12 1 mg oral tablet (1 source) Vitamin B12 Start: 10-20-2024 take 1 tablet by mouth once daily cyanocobalamin 1000 mcg Tab 1,000 mcg = 1 tab(s), Oral, Daily, # 30 tab(s), Refills(s) 0, Pharmacy: [facility]/pharmacy #[id number], 170.2, cm, 10/19/24 17:25:00 EST, Height/Length Dosing, 90.5, kg, 10/19/24 17:25:00 EST, Weight Dosing Start Date: 10/20/24 Status: Ordered Zofran ODT 4 mg Tab-Dis (11 sources) [...] by mouth every six hours Hydrocodone-Acetami nophen ([place]) 5-325 mg Tablet Discontinued 1 TAB PO Q6H June 21, 2019 12:00am February 15, 2023 9:46am Start: 11-12-2018 End: 01-30-2019 take 1 tablet by mouth every four to six hours Hydrocodone-Acetaminophen ([place]) 5-325 mg tablet Discontinued 1 TAB PO [...] Ordered Start: 09-20-2020 take 2 capsules by out four times daily Bentyl 10 mg [...] tablet (6 sources) Tetracycline-cla ss Drug Start: 2018 End: 2018 take 100 [...] with provider prior to any invasive procedure. ergocalciferol 1.25 mg oral capsule (1 source) Provitamin D2 Compound Start: 2024 End: 2024 ergocalciferol 50,000 intl units Cap 50,000 International_Unit = 1 cap(s), Oral, q7day, X 7 week(s), # 7 cap(s), Refills(s) 0, Pharmacy: [facility]/pharmacy #[id number], 170.2, cm, 10/19/24 17:25:00 EST, Height/Length Dosing, 90.5, kg, 10/19/24 17:25:00 EST, Weight Dosing Start Date: 10/20/24 Stop Date: 12/08/24 Status: Ordered 250 ml glucose 50 mg/ml / sodium chloride 9 mg/ml injection (1 source) Start: 2023 End: 2023 IntraVENous, at 50 mL/hr, CONTINUOUS, Starting on Tue08/28/24 at 2245 hydroCHLOROthiazide 25 mg / triamterene 37.5 mg oral capsule (14 sources) Potassium-sparin g Diuretic, Thiazide Diuretic Start: 2018 End: 2022 [...] 8:28am Start: 04-13-2018 take 1 tablet by [facility] three times daily Reglan 10 mg Tab 10 mg = 1 tab(s), Oral, TID, # 120 tab(s), Refills(s) 0, [id number], cm, 04/13/21 15:38:00 EDT, Height/Length Dosing, 84.4, kg, 04/13/21 15:38:00 EDT, Weight Dosing Start Date: 04/13/21 Status: Ordered Start: 04-13-2018 take 1 tablet by [facility] four times daily Reglan 10 mg Tab 10 mg = 1 tab(s), Oral, QID, # 120 tab(s), Refills(s) 0, [id number], 170, cm, 07/22/22 14:33:00 EST, Height/Length Dosing, 86.6, kg, 07/22/22 14:33:00 EST, Weight Dosing Start Date: 07/22/22 Status: Ordered Start: 04-13-2018 Reglan 10 MG 1 tablet daily as needed Orally once a day for 30 days Apr, Active 24 hr metoprolol succinate 50 mg extended release oral tablet (15 sources) beta-Adrenergic Serena Start: 10-19-2024 End: 10-20-2024 metoprolol succinate 50 mg ER Tab 50 mg = 1 tab(s), Tab-ER, Oral, Start date 10/20/24 9:00:00 AM EST, Hold for sbp 110 or less or HR 55 or less, 10/20/24 7:00:00 EST Start Date: 10/20/24 Stop Date: 10/20/24 Status: Completed Start: 08-28-2024 take 50 mg by mouth [...] 60 mg by mouth twice daily Pyridostigmine [place] Discontinued 60 MG PO Twice daily 60 March 31, 2023 12:00am May 01, 2024 9:31am 5 ml sodium chloride 9 mg/ml injection [...] tablet Discontinued 1 GM PO Q6H 56 February 15, 2023 12:00am May 01, 2024 [...] [Unspecified asthma, uncomplicated] Chronic Biliary tract disease (12 sources) Gallstone 01-08-2020 Episodic Calculus of urinary tract (12 sources) Kidney stone 05-10-2019 Episodic Cardiac dysrhythmias (6 sources) Palpitations; Translations: [Tachycardia, unspecified] Onset: 02-15-2024 Episodic Coagulation and hemorrhagic disorders (2 sources) Von Willebrand's disease; Translations: [VON [place]BR[place] DISEASE] Onset: 02-04-2022 Chronic Deficiency and other anemia (1 source) Anemia; Translations: [Anemia, unspecified] Onset: 10-19-2024 Episodic Disorders of lipid metabolism (1 source) Hyperlipidemia; Translations: [Hyperlipidemia, unspecified] Onset: 10-19-2024 Chronic Epilepsy; convulsions (15 sources) Seizure; Translations: [Unspecified convulsions] Onset: 10-19-2024 07-10-2020 Episodic Esophageal disorders (20 sources) Pearce's esophagus; Translations: [Pearce's esophagus without dysplasia] Onset: 01-11-2022 Chronic Essential hypertension (20 sources) Hypertensive disorder; Translations: [Essential (primary) hypertension] Onset: 11-30-2022 01-22-2020 Chronic Fluid and electrolyte disorders (8 sources) Dehydration; Translations: [Hypokalemia] Onset: 04-07-2022 08-30-2024 Episodic Genitourinary symptoms and ill-defined conditions (2 sources) Incontinence 02-21-2024 Chronic Genitourinary symptoms and ill-defined conditions (20 sources) History of urinary tract infection; Translations: [Proteinuria] Onset: 11-30-2022 02-24-2021 Episodic Headache; including migraine (18 sources) Migraine; Translations: [Migraine, unspecified, not intractable, without status migrainosus] Onset: 04-07-2022 05-10-2019 Chronic Heart valve disorders (13 sources) Mitral valve prolapse; Translations: [Nonrheumatic mitral [...] depressive disorder, single episode, unspecified] Onset: 08-29-2024 08-29-2024 Chronic Nausea and vomiting (20 sources) Nausea and vomiting; Translations: [Nausea with vomiting, unspecified] Onset: 01-28-2022 Episodic Noninfectious gastroenteritis (2 sources) Noninfective gastroenteritis and colitis, unspecified; Translations: [NONINFECTIVE GE AND COLITIS UNS] Onset: 06-08-2022 Episodic Nutritional deficiencies (2 sources) Malnutrition (calorie); Translations: [Moderate protein-calorie malnutrition] Onset: 10-20-2024 07-22-2023 Chronic Nutritional deficiencies (1 source) Vitamin B deficiency; Translations: [Deficiency of other specified B group vitamins] Onset: 10-20-2024 Episodic Osteoarthritis (13 sources) Arthritis; Translations: [Osteoarthritis] Onset: 10-19-2024 05-10-2019 Chronic Other aftercare (1 source) Other [place] [facility] (current[facility] drug therapy; Translations: [OTH INTERMEDIATE CURRENT DRUG THERAPY] Onset: 11-30-2022 Episodic Other aftercare (1 source) Long-term current use of drug therapy; Translations: [Other [place] [facility] [place] (current) drug therapy] Onset: 10-19-2024 Episodic Other connective tissue disease (1 source) Facial weakness; Translations: [R29.810] Onset: 10-19-2024 Episodic Other connective tissue disease (1 source) Neurological symptom; Translations: [Unspecified symptoms and signs involving the nervous system] Onset: 10-19-2024 Episodic Other diseases of bladder and urethra (13 sources) Traumatic urethral stricture; 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, female] Onset: 02-16-2024 02-24-2021 Episodic Other disorders of stomach and duodenum (20 sources) Gastroparesis syndrome; Translations: [Gastroparesis] Onset: 04-14-2022 05-26-2021 Episodic Other disorders of stomach and duodenum (1 source) Gastroparesis; Translations: [Gastroparesis] Onset: 08-25-2023 Episodic Other endocrine disorders (4 sources) Hypoglycemia; Translations: [Hypoglycemia, unspecified] 06-20-2024 Chronic Other gastrointestinal disorders (12 sources) Diarrhea 05-26-2021 Episodic Other gastrointestinal disorders (13 sources) Heartburn; Translations: [Heartburn] Onset: 04-14-2022 07-10-2020 Episodic Other gastrointestinal disorders (1 source) Digestive system finding; Translations: [Other specified symptoms and signs involving the digestive system and abdomen] Onset: 04-14-2022 Episodic Other gastrointestinal disorders (8 sources) Irregular bowel habits 04-14-2022 Episodic Other gastrointestinal disorders (13 sources) Constipation; Translations: [Constipation, unspecified] 09-20-2022 Episodic Other gastrointestinal disorders (8 sources) Esophageal dysphagia; Translations: [Dysphagia, unspecified] Episodic Other gastrointestinal disorders (5 sources) Constipation, unspecified; Translations: [CONSTIPATION UNSPECIFIED] Onset: 08-17-2022 Episodic Other gastrointestinal disorders (5 sources) Dark stools 09-20-2022 Episodic Other gastrointestinal disorders (5 sources) Hard stool 09-20-2022 Episodic Other gastrointestinal [...] Translations: [Other dysphagia] Onset: 08-15-2024 Episodic Other gastrointestinal disorders (2 sources) Personal history of other diseases of the digestive system; Translations: [Personal history of other diseases of the digestive system] Onset: 02-15-2024 Episodic Other injuries and conditions due to external causes (12 sources) [place]zoar 05-26-2021 Episodic Other injuries and conditions due to external causes (1 source) Foreign body in digestive tract; Translations: [Foreign body in stomach, sequela] Onset: 01-28-2022 Episodic Other injuries and conditions due to external causes (11 sources) Foreign body in stomach; Translations: [Foreign body in stomach, initial encounter] Onset: 07-22-2022 01-28-2022 Episodic Other nervous system disorders (1 source) Other chronic pain; Translations: [OTHER CHRONIC PAIN] Onset: 07-23-2022 Chronic Other nervous system disorders (4 sources) H/O: respiratory disease; Translations: [Personal history of other diseases of the nervous system and sense organs] 11-26-2024 Episodic Other nutritional; endocrine; and metabolic disorders (20 sources) Body mass index 30+ - obesity; Translations: [Body mass index (BMI) 31.0-31.9, adult] Chronic Other nutritional; endocrine; and metabolic disorders (12 sources) Morbid obesity; Translations: [Morbid (severe) obesity due to excess calories] Onset: 04-28-2018 04-28-2018 Chronic Other nutritional; endocrine; and metabolic disorders (4 sources) Obesity; Translations: [Obesity, unspecified] Onset: 10-19-2024 08-17-2023 Chronic Other nutritional; endocrine; and metabolic disorders (13 sources) Body mass index 25-29 - overweight; [...] TRACT] Onset: 11-30-2022 Episodic Residual codes; unclassified (4 sources) Other specified postprocedural states; Translations: [OTH [...] Spondylosis; intervertebral disc disorders; other back problems (5 sources) Backache 09-20-2022 Episodic Sprains and strains [...] [LOW BACK PAIN, UNSPECIFIED] Onset: 04-07-2022 Unclassified (4 sources) Asymptomatic microscopic hematuria 02-16-2024 Urinary tract infections (10 sources) Urinary tract infectious disease; Translations: [Urinary [...] Translations: [DIARRHEA UNSPECIFIED] Onset: 06-07-2022 Episodic Other lower respiratory disease (2 sources) Shortness of breath; Translations: [Shortness of Breath] Onset: 05-14-2024 Episodic Other lower respiratory disease (2 sources) Other forms of dyspnea; Translations: [Other forms of dyspnea] Onset: 02-15-2024 Episodic Other upper respiratory infections (4 sources) [...] Test Name Value Interpretation Reference Range [facility] Patient Letter [facility] December 13, 2024 CONSTANTINO CARDOSO [address] [place] [phone] : 1970 Dear Constantino, This is a reminder that you are due for an appointment with [facility]. Please contact our office at [phone] to schedule an appointment at your earliest convenience. Thank you, [facility] Normal [facility] Lab Miscellaneous-LCon 11-14 Lab Miscellaneous COMMENT Invalid Interpretation Code [facility] Comment on above: Result Comment: Test Ordered: [id number] Venous Thromb. Patients on VKA Homocysteine 9.5 umol/L UY Homocysteine levels in patients >60 years increase 1-2 umol/L. Reference Range: 5.0 - 15.0 Factor VIII Activity 146 % UY Reference Range: 57 - 163 Antithrombin Activity, Plasma 129 % UY Direct oral anticoagulants such as rivaroxaban, apixaban and edoxaban will lead to spuriously elevated antithrombin activity levels possibly masking a deficiency. Reference Range: 7 months and older: 75 - 135 Protein C Antigen 113 % UY Reference Range: 17 years and older: 60 - 150 Protein S Antigen, Total 86 % UY Reference Range: 7 months and older: 60 - 150 This test was developed and its performance characteristics determined by [employer]. It has not been cleared or approved by the Food and Drug Administration. Factor VII Antigen 172 % UY Reference Range: 7 months and older: 60 - 175 Results of this test are for research purposes only per the assay electric range servicer. The performance characteristics of this assay have not been established. The result should not be used as a diagnostic procedure without confirmation of the diagnosis by another medically established diagnostic product or procedure. Protein C Ag/FVII Ag Ratio 0.7 ratio UY Reference Range: 0.5 - 2.2 Results of this test are for research purposes only per the assay electric range servicer. The performance characteristics of this assay have not been established. The result should not be used as a diagnostic procedure without confirmation of the diagnosis by another medically established diagnostic product or procedure. Protein S Ag/FVII Ag Ratio 0.5 ratio UY Reference Range: 0.5 - 2.2 Results of this test are for research purposes only per the assay electric range servicer. The performance characteristics of this assay have not been established. The result should not be used as a diagnostic procedure without confirmation of the diagnosis by another medically established diagnostic product or procedure. Act. Prt C Resist w/FV Defic. 2.5 ratio UY The APCR result may be falsely increased (masking an abnormal, low APCR result) in patients on direct Xa inhibitor (e.g., rivaroxaban, apixaban, edoxaban) or a direct thrombin inhibitor (e.g., dabigatran) anticoagulant therapy due to assay interference by these drugs. Reference Range: 2.2 - 3.5 APTT 28.1 sec UY This test has not been validated for monitoring unfractionated heparin therapy. aPTT-based therapeutic ranges for unfractionated heparin therapy have not been established. Consider ordering Heparin anti-Xa (unfractionated). 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 It has not been cleared or approved by the [place] Food and Drug Administration. APTT 1:1 Saline NIY sec UY Testing Not Indicated This test was developed and its performance characteristics determined by [email or web address]. It has not been cleared or approved by the [place] Food and Drug Administration. LAC Interpretation Comment UY A lupus anticoagulant is not detected. All antiphospholipid antibodies evaluated are normal. As antibody titers may fluctuate with time, repeat testing may be indicated. Please contact [facility] if further clarification is needed. DRVVT Screen Seconds 46.2 sec UY Reference Range: <= 47.0 DRVVT Confirm Seconds NIY sec UY Testing Not Indicated DRVVT Ratio NIY ratio UY Testing Not Indicated Hexagonal Phospholipid Neutral 6 sec UY This value is NEGATIVE. This is a qualitative assay and is therefore reported as positive for lupus anticoagulant or negative. The quantitative value is provided as an aid in diagnosis. Reference Range: 0 - 11 Anticardiolipin Ab, IgG <10 GPL UY Reference Range: Negative: <15 Indeterminate: 15 - 20 Low to medium positive: >20 - 80 High positive: >80 Anticardiolipin Ab, IgM <10 MPL UY Reference Range: Negative: <13 Indeterminate: 13 - 20 Low to medium positive: >20 - 80 High positive: >80 Beta-2 Glycoprotein I, IgG <10 SGU UY The reference interval reflects a 3SD or 99th percentile interval. Reference Range: Negative: <21 Beta-2 Glycoprotein I, IgM <10 SMU UY The reference interval reflects a 3SD or 99th percentile interval. Reference Range: Negative: <33 Beta-2 Glycoprotein I, IgA <10 YOMAIRA UY The reference interval reflects a 3SD or 99th percentile interval. Reference Range: Negative: <26 Factor II Gene Mutation Result Comment UY G-G (Normal-Normal) No prothrombin [id number] mutation present. Interpretation: Comment UY While the patient does not possess this risk factor, other thrombotic risk factors may be detected through systematic clinical laboratory analysis. Methodology: Comment UY Patient DNA was evaluated for the factor II gene mutation at n (more content not included)... Performed By: #### 1 [id number] #### [facility] [address] [place] [id number] EEGon 10-28-2024 EEG EEG This is a routine electroencephalogram performed on a 54-year-old female using standard 10/20 lead placement and a Il[employer] system. All data were obtained digitally and are available for reformatting and remontage. There is a posterior dominant rhythm in the 9-10 hertz alpha range and 20-30 microvolt amplitude range recorded in the occipital leads symmetrically during restful wakefulness. This rhythm attenuates with eye opening. There is beta activity in the 15-20 hertz range and less than 20 microvolt amplitude range recorded in the frontocentral regions intermittently and symmetrically throughout the record. There is attenuation of the background rhythm, rolling eye movements, attenuation of muscle artifact, and generalized slowing, consistent with stage I sleep which occurred in approximately 20% of the record. There are no abnormal waveforms recorded with photic stimulation performed at multiple frequencies. There are no abnormal waveforms recorded with adequate hyperventilation. There is intermittent slow generalized activity in the 1-4 hertz delta range and 30-60 microvolt amplitude range recorded in a generalized pattern with intermixed beta activity in the 4-6 hertz range and 20-40 microvolt amplitude range recorded frequently during the record. There is one left frontal sharp wave recorded during the record associated with the generalized slowing. There is no epileptiform activity recorded during the record. There are no seizures recorded during the record. There is no abnormal slowing recorded during the record. 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 Clinical correlation is recommended. Rush Padilla M.D. ca Dictated: 10/20/2024 [id number] Typed: 10/21/2024 Normal [facility] Comment on above: Result Comment: Elec tronically Signed By: Randy BAKER, Rush\.br\Date and Time Signed: 10/28/24 07:30 EST BMPon 10-20-2024 Anion gap [Moles/Vol] 9 mmol/L Normal 6-16 [facility] Comment on above: Performed By: #### 2 [id number] #### [facility] [address] [place] [address] Calcium [Mass/Vol] 8.4 mg/dL Low 8.9-11.1 [facility] Comment on above: Performed By: #### 2 [id number] #### [facility] [address] [place] [address] Chloride [Moles/Vol] 112 mmol/L High 101-111 [facility] Comment on above: Performed By: #### 2 [id number] #### [facility] [address] [place] [address] CO2 [Moles/Vol] 25 mmol/L Normal 21-31 [facility] Comment on above: Performed By: #### 2 [id number] #### [facility] [address] [place] [address] Creatinine [Mass/Vol] 0.6 mg/dL Normal 0.5-1.3 [facility] Comment on above: Performed By: #### 2 [id number] #### [facility] [address] [place] [address] Glucose [Mass/Vol] 107 mg/dL Normal 55-199 [facility] Comment on above: Performed By: #### 2 [id number] #### [facility] [address] [place] [address] Potassium [Moles/Vol] 4.1 mmol/L Normal 3.5-5.3 [facility] Comment on above: Performed By: #### 2 [id number] #### [facility] [address] [place] [address] Sodium [Moles/Vol] 142 mmol/L Normal 135-145 [facility] Comment on above: Performed By: #### 2 [id number] #### [facility] [address] [place] [address] Urea nitrogen [Mass/Vol] 23 mg/dL High 5-21 [facility] Comment on above: Performed By: #### 2 [id number] #### [facility] [address] [place] [address] Urea nitrogen/Creatinine [Mass ratio] 38 No Units High 10-20 [facility] Comment on above: Performed By: #### 2 [id number] #### [facility] [address] [place] [address] CBC w/ Auto Diffon 5 Basophils/100 WBC (Bld) 0.7 % Normal 0.0-2.0 [facility] Comment on above: Performed By: #### 2 [id number] #### [facility] [address] [place] [address] Basophils/Leukocytes Auto (Bld) [Pure # fraction] 0.0 E9/L Normal 0.0-0.2 [facility] Comment on above: Performed By: #### 2 [id number] #### [facility] [address] [place] [address] Eosinophils (Bld) [#/Vol] 0.2 E9/L Normal 0.0-0.5 [facility] Comment on above: Performed By: #### 2 [id number] #### [facility] [address] [place] [address] Eosinophils/100 WBC (Bld) 4.9 % Normal 0.0-8.0 [facility] Comment on above: Performed By: #### 2 [id number] #### [facility] [address] [place] [address] Erythrocyte distribution width (RBC) [Ratio] 14.2 % Normal 10.9-14.2 [facility] Comment on above: Performed By: #### 2 [id number] #### [facility] [address] [place] [address] Hematocrit (Bld) [Volume fraction] 32.4 % Low 34.0-46.0 [facility] Comment on above: Performed By: #### 2 [id number] #### [facility] [address] [place] [address] Hemoglobin (Bld) [Mass/Vol] 11.0 g/dL Low 12.0-16.0 [facility] Comment on above: Performed By: #### 2 [id number] #### [facility] [address] [place] [address] Lymphocytes (Bld) [#/Vol] 1.5 E9/L Normal 1.0-4.0 [facility] Comment on above: Performed By: #### 2 [id number] #### [facility] [address] [place] [address] Lymphocytes/100 WBC (Bld) 32.6 % Normal 14.0-50.0 [facility] Comment on above: Performed By: #### 2 [id number] #### [facility] [address] [place] [address] MCH (RBC) [Entitic mass] 30.1 pg Normal 27.0-34.0 [facility] Comment on above: Performed By: #### 2 [id number] #### [facility] [address] [place] [address] MCHC (RBC) [Mass/Vol] 33.9 g/dL Normal 31.4-36.0 [facility] Comment on above: Performed By: #### 2 [id number] #### [facility] [address] [place] [address] MCV (RBC) [Entitic vol] 89.0 fL Normal 80.0-100.0 [facility] Comment on above: Performed By: #### 2 [id number] #### [facility] [address] [place] [address] Monocytes (Bld) [#/Vol] 0.4 E9/L Normal 0.2-1.0 [facility] Comment on above: Performed By: #### 2 [id number] #### [facility] [address] [place] [address] Neutrophils (Bld) [#/Vol] 2.5 E9/L Normal 2.0-7.5 [facility] Comment on above: Performed By: #### 2 [id number] #### [facility] [address] [place] [address] Neutrophils/100 WBC (Bld) 53.5 % Normal 36.0-75.0 [facility] Comment on above: Performed By: #### 2 186026 #### [facility] [address] [place] [address] Platelet 385.0 E9/L Normal 150.0-500.0 [facility] Comment on above: Performed By: #### 2 [id number] #### [facility] [address] [place] [address] Platelet mean volume (Bld) [Entitic vol] 7.1 fL Normal 6.4-10.8 [facility] Comment on above: Performed By: #### 2 [id number] #### [facility] [address] [place] [address] RBC (Bld) [#/Vol] 3.6 E12/L Low 4.3-5.9 [facility] Comment on above: Performed By: #### 2 [id number] #### [facility] [address] [place] [address] WBC corrected for nucl RBC Auto (Bld) [#/Vol] 4.6 E9/L Normal 4.0-11.0 [facility] Comment on above: Performed By: #### 2 [id number] #### [facility] [address] [place] [address] CHEMISTRYOrdered By: Lab ROP User on 10-20-2024 Glucose [Mass/Vol] 115 mg/dL High 55 - 99 mg/dL [facility] POC Subsection Comment on above: Result Comment: Paul VARGAS POC Username ALMA MORRIS Invalid Interpretation Code [facility] POC Subsection Sodium [Moles/Vol] [id number] mmol/L Invalid Interpretation Code [facility] POC Subsection Sodium [Moles/Vol] 063403353 mmol/L Invalid Interpretation Code [facility] POC Subsection Glucose [Mass/Vol] 93 mg/dL Normal 55 - 99 mg/dL [facility] POC Subsection Comment on above: Result Comment: Paul VARGAS POC Username ALMA MORRIS Invalid Interpretation Code [facility] POC Subsection Sodium [Moles/Vol] [id number] mmol/L Invalid Interpretation Code [facility] POC Subsection Sodium [Moles/Vol] 530637609 mmol/L Invalid Interpretation Code [facility] POC Subsection CHEMISTRYOrdered By: SYSTEM SYSTEM on 10-20-2024 25-hydroxyvitamin D3 [Mass/Vol] 12.7 ng/mL Low 30.0 - 100.0 ng/mL [facility] Anion gap [Moles/Vol] 9 mmol/L Normal 6 - 16 mEq/L [facility] Calcium [Mass/Vol] 8.4 mg/dL Low 8.9 - 11. 1 mg/dL [facility] Chloride [Moles/Vol] 112 mmol/L High 101 - 1 11 mmol/L [facility] Cholesterol [Mass/Vol] 179 mg/dL Normal 120 - 200 mg/dL [facility] Cholesterol in HDL [Mass/Vol] 52 mg/dL Invalid Interpretation Code [facility] Comment on above: Result Comment: '>= 60 LOW RISK' '<= 40 HIGH RISK' Cholesterol in LDL [Mass/Vol] 105 mg/dL Normal <=129mg/dL [facility] Cholesterol in VLDL [Mass/Vol] 25 mg/dL Normal 7 - 40 mg/dL [facility] CO2 [Moles/Vol] 25 mmol/L Normal 21 - 31 mmol/L [facility] Creatinine [Mass/Vol] 0.6 mg/dL Normal 0.5 - 1.3 mg/dL [facility] eGFR 106 mL/min/1.73 m2 Normal >=59mL/mi n/ 1.73 m2 [facility] Glucose [Mass/Vol] 107 mg/dL Normal 55 - 199 mg/dL [facility] Potassium [Moles/Vol] 4.1 mmol/L Normal 3.5 - 5.3 mmol/L [facility] Sodium [Moles/Vol] 142 mmol/L Normal 135 - 145 mmol/L [facility] Triglyceride [Mass/Vol] 127 mg/dL Normal <=149mg/dL [facility] Urea nitrogen [Mass/Vol] 23 mg/dL High 5 - 21 mg/dL [facility] Urea nitrogen/Creatinine [Mass ratio] 38 mg/mg High 10 - 20 [facility] Amphetamines Screen method >1000 ng/mL Ql (U) NEGATIVE 7 (10/20/24 12:51 AM) Normal NEGATIVE [facility] Comment on above: Interpretive Data: N egative Cutoff: <1000 ng/mL Barbiturates Screen Ql (U) NEGATIVE 8 (10/20/24 12:51 AM) Normal NEGATIVE [facility] Comment on above: Interpretive Data: N egative Cutoff: <200 ng/mL Benzodiazepines Ql (U) NEGATIVE 1 (10/20/24 12:51 AM) Normal NEGATIVE [facility] Comment on above: Interpretive Data: N egative Cutoff: <200 ng/mL Cannabinoids Screen Ql (U) NEGATIVE 6 (10/20/24 12:51 AM) Normal NEGATIVE [facility] Comment on above: Interpretive Data: N egative Cutoff: <50 ng/mL Cocaine Ql (U) NEGATIVE 2 (10/20/24 12:51 AM) Normal NEGATIVE [facility] Comment on above: Interpretive Data: N egative Cutoff: <300 ng/mL Opiates Screen Ql (U) NEGATIVE 4 (10/20/24 12:51 AM) Normal NEGATIVE [facility] Comment on above: Interpretive Data: N egative Cutoff: <300 ng/mL Phencyclidine Screen method >25 ng/mL Ql (U) NEGATIVE 5 (10/20/24 12:51 AM) Normal NEGATIVE [facility] Comment on above: Interpretive Data: N egative Cutoff: <25 ng/mL These drug screen results are to be used for medical (i.e., treatment) purposes only. Unconfirmed drug screening results must not be used for non-medical purposes (e.g., employment testing, legal testing). U Fentanyl NEGATIVE 17 (10/20/24 12:51 AM) Normal NEGATIVE [facility] Comment on above: Interpretive Data: N egative Cutoff: <5 ng/mL These drug screen results are to be used for medical (i.e., treatment) purposes only. Unconfirmed drug screening results must not be used for non-medical purposes (e.g., employment testing, legal testing). Capillary Glucose POCon 10-06 Glucose [Mass/Vol] 115 mg/dL High 55-99 [facility] Comment on above: Result Comment: Paul VARGAS Performed By: #### 2 [id number] ####[facility] [address] [place] [address] Glucose [Mass/Vol] 93 mg/dL Normal 55-99 [facility] Comment on above: Result Comment: Paul VARGAS Performed By: #### 2 [id number] #### [facility] [address] [place] [address] Discharge Note-Nursingon Discharge Note-Nursing Discharge Note-Nursing CONSTANTINO CARDOSO :1970 Visit Date:10/19/2024 Inpatient Discharge Instructions Your Care Team Admitting Physician - Eliezer Lorenzo DO Consulting Physician - Rush Padilla MD Reason for Your Visit stroke Your Diagnosis Stroke-like symptoms Migraine headache Anemia B12 deficiency Vitamin D deficiency Hypokalemia HTN (hypertension) HLD (hyperlipidemia) Gastroparesis Acid reflux Seizure Osteoarthritis Obesity due to excess calories On deep vein thrombosis (DVT) prophylaxis Facial droop Headache Potential stroke Tests Performed Stool Occult Blood -- Results Pending -- CT Head or Brain w/o Contrast MRA Head w/o Contrast MRA Neck w/o Contrast MRI Brain w/o Contrast XR Chest Single View Please visit your patient portal for your results or contact your primary care physician. This Is Your Medications List acarbose (acarbose 25 mg oral tablet) acetaminophen (Tylenol 325 mg Tab) aspirin (aspirin 81 mg Oral EC Tab) cyanocobalamin (cyanocobalamin 1000 mcg Tab) ergocalciferol (ergocalciferol 50,000 intl units Cap) estradiol topical (Estrace 0.1 mg/g Cream) levetiracetam (Keppra 500 mg Tab) lisinopril (lisinopril 10 mg Tab) metoprolol (metoprolol succinate 50 mg ER Tab) multivitamin (Multi Vitamins oral tablet) sertraline (sertraline 50 mg Tab) [Image Removed: STOP]Stop taking these medications naproxen (Naprosyn 500 mg Tab) ondansetron (Zofran 4 mg Tab) ondansetron (Zofran ODT 4 mg Tab-Dis) Procedure History Esophagogastroduodenoscop y (01/11/2022), Esophagogastroduodenoscop y (05/13/2021), Esophagogastroduodenoscop y (09/30/2020), Colonoscopy (03/13/2020), Esophagogastroduodenoscop y (01/30/2020), Colonoscopy (05/17/2019), Esophagogastroduodenoscop y (05/17/2019), Hernia surgical mesh (03/02/2019), Cholecystectomy, Hernia repair, Hysterectomy. Discharge Vitals Temperature (Axillary) 36.5 ???C Heart Rate (Monitored) 54 Respiratory Rate 16 Blood Pressure 127/78 Height 170.2 cm Weight 85.2 kg BMI 29.42 BMI 29.41 What to do next Instructions From Your Doctor Event Name Event Result Discharge Activity Ambulate as tolerated, Activity as tolerated Discharge Restrictions No driving Discharge Diet(s) Regular, Fat Modified- 50 gram, Low Sodium- 2000 mg Pending Diagnostic Test Results None Discharge Instructions Seizure precautions, no driving until cleared by neuroFollow up appts as writtenReturn to the hospital for recurrent symptoms New Follow Up Appointments after Discharge Follow Up with JUDI YOUSSEF When: Within 1 to 2 days Where: [address] [place] [address]- [phone] Business (1) Follow Up with Randy BAKER, REGINALDO Baker When: Within 2 to 4 weeks Where: [facility] [address] [place] [address]- Medications What How Much When Why Instructions Next Dose New aspirin (aspirin 81 mg Oral EC Tab) 1 Tablets By Mouth Every day Pickup at [facility]/pharmacy #[id number] 10/21/24 9am New cyanocobalamin (cyanocobalamin 1000 mcg Tab) 1 Tablets By Mouth Every day Pickup at [facility]/pharmacy #[id number] 10/21/24 9am New levetiracetam (Keppra 500 mg Tab) 1 Tablets By Mouth 2 times a day Pickup at [facility]/pharmacy #[id number] 10/20/24 9pm New multivitamin (Multi Vitamins oral tablet) 1 Tablets By Mouth Every day Pickup at [facility]/pharmacy #[id number] 10/21/24 9am Changed ergocalciferol (ergocalciferol 50,000 intl units Cap) 1 Capsules By Mouth Every 7 days Duration: 7 Weeks Pickup at [facility]/pharmacy #[id number] 10/27/24 9am Unchanged acarbose (acarbose 25 mg oral tablet) 1 Tablets By Mouth Every day 10/21/24 9am Unchanged acetaminophen (Tylenol 325 mg Tab) 1 Tablets By Mouth Every 4 hours as needed for Pain Abdominal pain as needed Unchanged estradiol topical (Estrace 0.1 mg/ g Cream) 1 Gram Vaginal As Directed Recurrent UTI Apply pea-sized amount around urethra every night x 3 weeks, then 2 times weekly for maintenance 10/20/24 9pm Unchanged lisinopril (lisinopril 10 mg Tab) 1 Tablets By Mouth Every day 10/21/24 9am Unchanged metoprolol (metoprolol succinate 50 mg ER Tab) 1 Tablets By Mouth Every day 10/21/24 9am Unchanged sertraline (sertraline 50 mg Tab) 1 Tablets By Mouth Every day 10/21/24 9am Pharmacy Information [facility]/pharmacy #[id number]: [address] [place], [place] [id number] [phone] What How Much When Why Comments Stop Taking naproxen (Naprosyn 500 mg Tab) 1 Tablets By Mouth 2 times a day as needed for for pain Stop Taking ondansetron (Zofran 4 mg Tab) 1 Tablets By Mouth Every 8 hours Diarrhea Mild nausea Hernia, hiatal Weight loss Stop Taking ondansetron (Zofran ODT 4 mg Tab-Dis) 1 Tablets By Mouth Every 6 hours as needed for Nausea/Vomiting Test Results CBC BMP WBC: 4.6 E9/L (10/20/24 06:02:00) Glucose Lvl: 107 mg/dL (10/20/24 06:02:00) RBC: 3.6 E12/L Low (10/20/24 06:02:00) BUN: 23 mg/dL High (10/20/24 06:02:00) HGB: 11 gm/dL Low (10/20/24 (more content not included)... Normal [facility] HEMATOLOGYOrdered By: SYSTEM SYSTEM on 10-20-2024 Basophils/100 WBC (Bld) 0.7 % Normal 0.0 - 2.0 % [facility] Basophils/Leukocytes Auto (Bld) [Pure # fraction] 0.0 E9/L Normal 0.0 - 0.2 E9/L [facility] Eosinophils (Bld) [#/Vol] 0.2 E9/L Normal 0.0 - 0.5 E9/L [facility] Eosinophils/100 WBC (Bld) 4.9 % Normal 0.0 - 8.0 % [facility] Erythrocyte distribution width (RBC) [Ratio] 14.2 % Normal 10.9 - 14.2 % [facility] Hematocrit (Bld) [Volume fraction] 32.4 % Low 34.0 - 46.0 % [facility] Hemoglobin (Bld) [Mass/Vol] 11.0 g/dL Low 12.0 - 16.0 gm/dL [facility] Lymphocytes (Bld) [#/Vol] 1.5 E9/L Normal 1.0 - 4.0 E9/L [facility] Lymphocytes/100 WBC (Bld) 32.6 % Normal 14.0 - 50.0 % [facility] MCH (RBC) [Entitic mass] 30.1 pg Normal 27.0 - 34.0 pg [facility] MCHC (RBC) [Mass/Vol] 33.9 g/dL Normal 31.4 - 36.0 gm/dL [facility] MCV (RBC) [Entitic vol] 89.0 fL Normal 80.0 - 100.0 fL [facility] Monocytes (Bld) [#/Vol] 0.4 E9/L Normal 0.2 - 1.0 E9/L [facility] Monocytes/100 WBC (Bld) 8.3 % Normal 4.0 - 14.0 % [facility] Neutrophils (Bld) [#/Vol] 2.5 E9/L Normal 2.0 - 7.5 E9/L [facility] Neutrophils/100 WBC (Bld) 53.5 % Normal 36.0 - 75.0 % [facility] Platelet 385.0 E9/L Normal 150.0 - 500.0 E9/L [facility] Platelet mean volume (Bld) [Entitic vol] 7.1 fL Normal 6.4 - 10.8 fL [facility] RBC (Bld) [#/Vol] 3.6 E12/L Low 4.3 - 5.9 E12/L [facility] WBC corrected for nucl RBC Auto (Bld) [#/Vol] 4.6 E9/L Normal 4.0 - 11.0 E9/L [facility] Inpatient Clinical Summaryon 10-20-2024 Inpatient Clinical Summary Inpatient Clinical Summary [address] [address] Clinical Summary Person Information: Name: CONSTANTINO CARDOSO Age: 54 Years : 1970 Sex: Female PCP: JUDI YOUSSEF CNP Marital Status: Phone: [phone] Race: White Ethnicity: Non- or Language: Maltese MRN: Visit Id: Visit Reason: Facial droop; Headache; Potential stroke; POSS STROKE Speciality: Acuity: Enc Type: Observation Med Service: Medical Arrival: 10/19/2024 17:04:11 Discharge: Dispo Type: Admitted as IP to this Hosp Address: [address] [facility] [id number] Provider Notes: Diagnosis: 1:Stroke-like symptoms; 2:Migraine headache; 3:Anemia; 4:B12 deficiency; 5:Vitamin D deficiency; 6:Hypokalemia; 7:HTN (hypertension); 8:HLD (hyperlipidemia); 9:Gastroparesis; 10:Acid reflux; 11:Seizure; 12:Osteoarthritis; 13:Obesity due to excess calories; 14:On deep vein thrombosis (DVT) prophylaxis Problems Active Mixed incontinence urge and stress Recurrent UTI Asymptomatic microscopic hematuria Dark stools Hard stool Back pain Stomach pain Nausea Constipation Irregular bowel habits Acid reflux Nausea and vomiting Pearce esophagus Foreign body in stomach, sequela Epigastric pain Diarrhea Gastroparesis Gastric bezoar Proteinuria Other post-traumatic urethral stricture, female Hx of urinary tract infection Urinary urgency Seizures Heartburn High blood pressure Gallstone Hernia, hiatal BMI 26.0-26.9,adult Arthritis Migraines Kidney stones Smoking Status: Never Smoker Functional Status: Sensory Deficits: History of Falls: Mobility Assistance Prior to Admission: ADLs: Current Level of Assistance for Self-Care/Mobility: Cognitive Status: Oriented x 3 Allergies penicillin (Swelling) Flexeril (Swelling of throat) Measurements: Height: 170.2 cm Weight: 85.2 kg Blood Pressure: 127 mmHg / 78 mmHg BMI: 29.41 kg/m2 Procedures No Procedures Documented Immunizations No Immunizations Documented This Visit Final Med List: acarbose (acarbose 25 mg oral tablet) 1 Tablets By Mouth every day. acetaminophen (Tylenol 325 mg Tab) 1 Tablets By Mouth every 4 hours as needed Pain. aspirin (aspirin 81 mg Oral EC Tab) 1 Tablets By Mouth every day. Refills: 0. cyanocobalamin (cyanocobalamin 1000 mcg Tab) 1 Tablets By Mouth every day. Refills: 0. ergocalciferol (ergocalciferol 50,000 intl units Cap) 1 Capsules By Mouth every 7 days for 7 Weeks. Refills: 0. estradiol topical (Estrace 0.1 mg/g Cream) 1 Gram Vaginal As Directed. Apply pea-sized amount around urethra every night x 3 weeks, then 2 times weekly for maintenance. Refills: 3. levetiracetam (Keppra 500 mg Tab) 1 Tablets By Mouth 2 times a day. Refills: 0. lisinopril (lisinopril 10 mg Tab) 1 Tablets By Mouth every day. metoprolol (metoprolol succinate 50 mg ER Tab) 1 Tablets By Mouth every day. multivitamin (Multi Vitamins oral tablet) 1 Tablets By Mouth every day. Refills: 0. sertraline (sertraline 50 mg Tab) 1 Tablets By Mouth every day. Care Team Members: Attending Physician: Eliezer Lorenzo DO Consulting Physician: Rush Padilla MD Referring Physician: Follow up: With: Address: When: JUDI YOUSSEF [address] [id number] [phone] Business (1) Within 1 to 2 days With: Address: When: Rush Padilla MD [place] [address] [address] [id number] Within 2 to 4 weeks Patient Education Information: Seizure, Adult, Tyut-sk-Oztz; Vitamin B12 Deficiency, Gmwz-cd-Bcmu; Vitamin D Deficiency, Laiy-sz-Clxj; Vitamin D Test; Migraine Headache, Nwed-ov-Ftlm aspirin 81 mg Oral EC Tab, cyanocobalamin, ergocalciferol 50,000 intl units Cap, multivitamin Normal [facility] Inpatient Clinical Summary Inpatient Clinical Summary [address] [address] Clinical Summary Person Information: Name: CONSTANTINO CARDOSO Age: 54 Years : 1970 Sex: Female PCP: JUDI YOUSSEF CNP Marital Status: Phone: [phone] Race: White Ethnicity: Non- or Language: Maltese Visit Id: Visit Reason: Facial droop; Headache; Potential stroke; POSS STROKE Speciality: Acuity: Enc Type: Observation Med Service: Medical Arrival: 10/19/2024 17:04:11 Discharge: Dispo Type: Admitted as IP to this [facility] Address: [address] [id number] Provider Notes: Diagnosis: 1:Stroke-like symptoms; 2:Migraine headache; 3:Anemia; 4:Hypokalemia; 5:HTN (hypertension); 6:HLD (hyperlipidemia); 7:Gastroparesis; 8:Acid reflux; 9:Seizure; 10:Osteoarthritis; 11:Obesity due to excess calories; 12:On deep vein thrombosis (DVT) prophylaxis; Abdominal pain Problems Active Mixed incontinence urge and stress Recurrent UTI Asymptomatic microscopic hematuria Dark stools Hard stool Back pain Stomach pain Nausea Constipation Irregular bowel habits Acid reflux Nausea and vomiting Pearce esophagus Foreign body in stomach, sequela Epigastric pain Diarrhea Gastroparesis Gastric bezoar Proteinuria Other post-traumatic urethral stricture, female Hx of urinary tract infection Urinary urgency Seizures Heartburn High blood pressure Gallstone Hernia, hiatal BMI 26.0-26.9,adult Arthritis Migraines Kidney stones Smoking Status: Never Smoker Functional Status: Sensory Deficits: History of Falls: Mobility Assistance Prior to Admission: ADLs: Current Level of Assistance for Self-Care/Mobility: Cognitive Status: Oriented x 3 Allergies penicillin (Swelling) Flexeril (Swelling of throat) Measurements: Height: 170.2 cm Weight: 85.2 kg Blood Pressure: 129 mmHg / 80 mmHg BMI: 29.41 kg/m2 Procedures No Procedures Documented Immunizations No Immunizations Documented This Visit Final Med List: acarbose (acarbose 25 mg oral tablet) 1 Tablets By Mouth every day. acetaminophen (Tylenol 325 mg Tab) 1 Tablets By Mouth every 4 hours as needed Pain. aspirin (aspirin 81 mg Oral EC Tab) 1 Tablets By Mouth every day. Refills: 0. cyanocobalamin (cyanocobalamin 1000 mcg Tab) 1 Tablets By Mouth every day. Refills: 0. ergocalciferol (ergocalciferol 50,000 intl units Cap) 1 Capsules By Mouth every 7 days for 7 Weeks. Refills: 0. estradiol topical (Estrace 0.1 mg/g Cream) 1 Gram Vaginal As Directed. Apply pea-sized amount around urethra every night x 3 weeks, then 2 times weekly for maintenance. Refills: 3. lisinopril (lisinopril 10 mg Tab) 1 Tablets By Mouth every day. metoprolol (metoprolol succinate 50 mg ER Tab) 1 Tablets By Mouth every day. multivitamin (Multi Vitamins oral tablet) 1 Tablets By Mouth every day. Refills: 0. sertraline (sertraline 50 mg Tab) 1 Tablets By Mouth every day. Care Team Members: Attending Physician: Eliezer Lorenzo DO Consulting Physician: Rush Padilla MD Referring Physician: Follow up: With: Address: When: JUDI YOUSSEF [address] [place] [phone] Business (1) Within 1 to 2 days With: Address: When: Randy BAKER, REGINALDO Baker [place] [address] [place] [place] [address] Within 2 to 4 weeks Patient Education Information: Vitamin B12 Deficiency, Qnza-yh-Wkob; Vitamin D Deficiency, Tmdc-ir-Qduy; Vitamin D Test; Migraine Headache, Tdoc-mp-Jcdi aspirin 81 mg Oral EC Tab, cyanocobalamin, ergocalciferol 50,000 intl units Cap, multivitamin Normal [facility] Inpatient Patient Summaryon 10-20-2024 Inpatient Patient Summary Inpatient Patient Summary [address] [address] Patient Discharge Instructions PERSON INFORMATION Name: CONSTANTINO CARDOSO Date of : 1970 Current Date: 10/20/2024 15:59:27 PHYSICIANS Admitting Physician: Eliezer Lorenzo DO Primary Care Physician: JUDI YOUSSEF CNP PCP Phone Number: [phone] Comment: Discharge Diagnosis: 1:Stroke-like symptoms; 2:Migraine headache; 3:Anemia; 4:B12 deficiency; 5:Vitamin D deficiency; 6:Hypokalemia; 7:HTN (hypertension); 8:HLD (hyperlipidemia); 9:Gastroparesis; 10:Acid reflux; 11:Seizure; 12:Osteoarthritis; 13:Obesity due to excess calories; 14:On deep vein thrombosis (DVT) prophylaxis Condition at Discharge: Stable CONSTANTINO CARDOSO has been given the following list of follow-up instructions, prescriptions, and patient education materials: PATIENT FOLLOW-UP INFORMATION Diet: Regular, Fat Modified- 50 gram, Low Sodium- 2000 mg Discharge Activity: Ambulate as tolerated, Activity as tolerated Discharge Restrictions: No driving Wound Care Instructions: Remove Your Dressing In Days Call Your Doctor For: IF UNABLE TO CONTACT YOUR PHYSICIAN AND YOU FEEL IT IS AN EMERGENCY, GO TO THE NEAREST EMERGENCY ROOM OR CALL 911 Home Treatment: Devices/Equipment: None Special Services: Additional Instructions: Seizure precautions, no driving until cleared by neuro Follow up appts as written Return to the hospital for recurrent symptoms Primary Care Physician to provide the following pending test results: None Follow up: With: Address: When: JUDI YOUSSEF [address] [place] [phone] Business (1) Within 1 to 2 days With: Address: When: Randy BAKER, REGINALDO Baker [facility] [address] [place] [address] Within 2 to 4 weeks In the event that this physician does not participate in your insurance network, please consult with your insurance company to find a nearby participating provider. Comment: IWALKER COLLEENIA R, have received the attached patient education materials/instructions and have verbalized understanding: Patient Signature ____ Date Clinican/Nurse Signature Date HERE ARE THE MEDICATION CHANGES THAT OCCURRED DURING YOUR HOSPITAL STAY New Medications [id number], [address] [facility] [place], [place] [id number], [phone] aspirin (aspirin 81 mg Oral EC Tab) 1 Tablets By Mouth every day. Refills: 0. Last Dose: Next Dose: cyanocobalamin (cyanocobalamin 1000 mcg Tab) 1 Tablets By Mouth every day. Refills: 0. Last Dose: Next Dose: levetiracetam (Keppra 500 mg Tab) 1 Tablets By Mouth 2 times a day. Refills: 0. Last Dose: Next Dose: multivitamin (Multi Vitamins oral tablet) 1 Tablets By Mouth every day. Refills: 0. Last Dose: Next Dose: Medications to Continue Taking That Have Changed [id number], [address] [place], [place] [id number], [phone] START: ergocalciferol (ergocalciferol 50,000 intl units Cap) 1 Capsules By Mouth every 7 days for 7 Weeks. Refills: 0. Last Dose: Next Dose: STOP: ergocalciferol (Vitamin D) By Mouth every week. Medications to Continue with No Changes Other Medications acarbose (acarbose 25 mg oral tablet) 1 Tablets By Mouth every day. Last Dose: Next Dose: acetaminophen (Tylenol 325 mg Tab) 1 Tablets By Mouth every 4 hours as needed Pain. Last Dose: Next Dose: estradiol topical (Estrace 0.1 mg/g Cream) 1 Gram Vaginal As Directed. Apply pea-sized amount around urethra every night x 3 weeks, then 2 times weekly for maintenance. Refills: 3. Last Dose: Next Dose: lisinopril (lisinopril 10 mg Tab) 1 Tablets By Mouth every day. Last Dose: Next Dose: metoprolol (metoprolol succinate 50 mg ER Tab) 1 Tablets By Mouth every day. Last Dose: Next Dose: sertraline (sertraline 50 mg Tab) 1 Tablets By Mouth every day. Last Dose: Next Dose: No Longer Take the Following Medications naproxen (Naprosyn 500 mg Tab) 1 Tablets By Mouth 2 times a day as needed for pain. Refills: 0. ondansetron (Zofran 4 mg Tab) 1 Tablets By Mouth every 8 hours. Refills: 1. ondansetron (Zofran ODT 4 mg Tab-Dis) 1 Tablets By Mouth every 6 hours as needed Nausea/Vomiting. Refills: 0. Comment: MEDICATION LIST PROVIDED FOR YOU IS A LIST OF YOUR CURRENT MEDICATIONS. PLEASE CARRY THIS WITH YOU AT ALL TIMES. acarbose (acarbose 25 mg oral tablet) (more content not included)... Normal [facility] Inpatient Patient Summary Inpatient Patient Summary [place] [id number] Patient Discharge Instructions PERSON INFORMATION Name: CONSTANTINO CARDOSO Date of : 1970 Current Date: 10/20/2024 11:40:03 PHYSICIANS Admitting Physician: Eliezer Lorenzo DO Primary Care Physician: JUDI YOUSSEF CNP PCP Phone Number: [phone] Comment: Discharge Diagnosis: 1:Stroke-like symptoms; 2:Migraine headache; 3:Anemia; 4:Hypokalemia; 5:HTN (hypertension); 6:HLD (hyperlipidemia); 7:Gastroparesis; 8:Acid reflux; 9:Seizure; 10:Osteoarthritis; 11:Obesity due to excess calories; 12:On deep vein thrombosis (DVT) prophylaxis; Abdominal pain Condition at Discharge: Stable CONSTANTINO CARDOSO has been given the following list of follow-up instructions, prescriptions, and patient education materials: PATIENT FOLLOW-UP INFORMATION Diet: Regular, Fat Modified- 50 gram, Low Sodium- 2000 mg Discharge Activity: Ambulate as tolerated, Activity as tolerated Discharge Restrictions: No restrictions Wound Care Instructions: Remove Your Dressing In Days Call Your Doctor For: IF UNABLE TO CONTACT YOUR PHYSICIAN AND YOU FEEL IT IS AN EMERGENCY, GO TO THE NEAREST EMERGENCY ROOM OR CALL 911 Home Treatment: Devices/Equipment: None Special Services: Additional Instructions: Follow up appts as written Return to the hospital for recurrent symptoms Primary Care Physician to provide the following pending test results: Follow up: With: Address: When: JUDI YOUSSEF [address] [place] [phone] Business (1) Within 1 to 2 days With: Address: When: Randy BAKER, Rush [place] [address] [place] [place] [address] Within 2 to 4 weeks In the event that this physician does not participate in your insurance network, please consult with your insurance company to find a nearby participating provider. Comment: IWALKER COLLEENIA R, have received the attached patient education materials/instructions and have verbalized understanding: Patient Signature ____ Date Clinican/Nurse Signature Date HERE ARE THE MEDICATION CHANGES THAT OCCURRED DURING YOUR HOSPITAL STAY New Medications [id number], [address] [facility] [place], [place] [id number], [phone] aspirin (aspirin 81 mg Oral EC Tab) 1 Tablets By Mouth every day. Refills: 0. Last Dose: Next Dose: cyanocobalamin (cyanocobalamin 1000 mcg Tab) 1 Tablets By Mouth every day. Refills: 0. Last Dose: Next Dose: multivitamin (Multi Vitamins oral tablet) 1 Tablets By Mouth every day. Refills: 0. Last Dose: Next Dose: Medications to Continue Taking That Have Changed [facility] #[id number], [address], [place] [id number], [phone] START: ergocalciferol (ergocalciferol 50,000 intl units Cap) 1 Capsules By Mouth every 7 days for 7 Weeks. Refills: 0. Last Dose: Next Dose: STOP: ergocalciferol (Vitamin D) By Mouth every week. Medications to Continue with No Changes Other Medications acarbose (acarbose 25 mg oral tablet) 1 Tablets By Mouth every day. Last Dose: Next Dose: acetaminophen (Tylenol 325 mg Tab) 1 Tablets By Mouth every 4 hours as needed Pain. Last Dose: Next Dose: estradiol topical (Estrace 0.1 mg/g Cream) 1 Gram Vaginal As Directed. Apply pea-sized amount around urethra every night x 3 weeks, then 2 times weekly for maintenance. Refills: 3. Last Dose: Next Dose: lisinopril (lisinopril 10 mg Tab) 1 Tablets By Mouth every day. Last Dose: Next Dose: metoprolol (metoprolol succinate 50 mg ER Tab) 1 Tablets By Mouth every day. Last Dose: Next Dose: sertraline (sertraline 50 mg Tab) 1 Tablets By Mouth every day. Last Dose: Next Dose: No Longer Take the Following Medications naproxen (Naprosyn 500 mg Tab) 1 Tablets By Mouth 2 times a day as needed for pain. Refills: 0. ondansetron (Zofran 4 mg Tab) 1 Tablets By Mouth every 8 hours. Refills: 1. ondansetron (Zofran ODT 4 mg Tab-Dis) 1 Tablets By Mouth every 6 hours as needed Nausea/Vomiting. Refills: 0. Comment: MEDICATION LIST PROVIDED FOR YOU IS A LIST OF YOUR CURRENT MEDICATIONS. PLEASE CARRY THIS WITH YOU AT ALL TIMES. acarbose (acarbose 25 mg oral tablet) 1 Tablets By Mouth every day. acetaminophen (Tylenol 325 mg Tab) 1 Tablets By Mouth every 4 hours as needed Pain. aspirin (aspirin 81 mg Oral EC Tab) 1 Tablets By Mouth every day. Refills: 0. cyanocobalamin (cyanocobalamin (more content not included)... Normal [facility] Interdisciplinary Note - Issa n 10-20-2024 Interdisciplinary Note - OT Interdisciplinary Note - OT OT eval completed. AMPAC score . Pt is completing ADL tasks and mobility in room at MOD I without AD, increased time due to soreness in R ankle from previous slip on ice. No skilled OT needs at this time. Normal [facility] Lipid Panelon 10-20-2024 Cholesterol [Mass/Vol] 179 mg/dL Normal 120-200 [facility] Comment on above: Performed By: #### 2 [id number] #### [facility] [address] [place] [address] Cholesterol in HDL [Mass/Vol] 52 mg/dL Invalid Interpretation Code [facility] Comment on above: Result Comment: '>= 60 LOW RISK' '<= 40 HIGH RISK' Performed By: #### 2 [id number] #### [facility] [address] [place] [address] Cholesterol in LDL [Mass/Vol] 105 mg/dL Normal <=129 [facility] Comment on above: Performed By: #### 2 [id number] #### [facility] [address] [place] [address] Cholesterol in VLDL [Mass/Vol] 25 mg/dL Normal 7-40 [facility] Comment on above: Performed By: #### 2 [id number] #### [facility] [address] [facility] [place] [address] Triglyceride [Mass/Vol] 127 mg/dL Normal <=149 [facility] Comment on above: Performed By: #### 2 [id number] #### [facility] [address] [facility] [place] [address] MRA Head w/o Contraston 10-06 MRA Head w/o Contrast Exam Date/Time: 10/19/2024 22:35 EST Reason for Exam: CVA Report IMPRESSION: PROBABLY NEGATIVE HEAD MRA, NOTED. EXAM: MRA Head w/o Contrast DATE: 10/19/2024 7:13 PM CLINICAL HISTORY: CVA. COMPARISON: Head MRI/MRA 10/19/2024. TECHNIQUE: Three-dimensional [id number] MRA of the intracranial arterial circulation was performed. Routine and volume rendered images were obtained on a three-dimensional workstation. Narrowings are estimated by NASCET criteria. FINDINGS: A focal area of signal loss of the right carotid artery at the skull base is probably artifactual rather than a moderate stenosis, as is a mild focal area of signal loss within the anterior aspect of the right cavernous carotid. There is no other significant stenosis, branch occlusion, intracranial aneurysm, or developmental vascular variations of concern identified. 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 Ordering Provider: Guerline BEAN FINAL REPORT Dictated: 10/20/2024 12:18 pm Axel Garcia MD Signed (Electronic Signature): 10/20/2024 12:18 pm Signed by: Axel Garcia MD Transcribed by: REZA Technologist: ANDRA [facility] MRA Neck w/o Contraston 10-06 MRA Neck w/o Contrast Exam Date/Time: 10/19/2024 22:35 EST Reason for Exam: CVA Report IMPRESSION: NEGATIVE NECK MRA. EXAM: MRA Neck w/o Contrast DATE: 10/19/2024 7:13 PM CLINICAL HISTORY: CVA. Technologist Comments: rt side facial droop, slurred speech, headache; symptoms have resolved currently; r/o stroke; no known injury/head trauma COMPARISON: Head MRI/MRA 10/19/2024. TECHNIQUE: 2D and 3D [id number]-ig-eipjbr MRA of the neck arterial circulation was performed. Routine and volume rendered images were obtained on a three-dimensional workstation. Narrowings are estimated by NASCET criteria. FINDINGS: There is no significant stenosis, evidence of dissection, or other findings of concern identified in the neck. Ordering Provider: Guerline BEAN FINAL REPORT Dictated: 10/20/2024 12:27 pm Axel Garcia MD Signed (Electronic Signature): 10/20/2024 12:27 pm Signed by: Axel Garcia MD Transcribed by: REZA Technologist: ANDRA [facility] MRI Brain w/o Contraston MRI Brain w/o Contrast Exam Date/Time: 10/19/2024 22:35 EST Reason for Exam: CVA Report IMPRESSION: NO ACUTE INTRACRANIAL PROCESS IDENTIFIED. CHRONIC, ATROPHIC, AND INVOLUTIONAL CHANGES, NOTED. EXAM: MRI Brain w/o Contrast DATE: 10/19/2024 7:13 PM CLINICAL HISTORY: CVA. Technologist Comments: rt side facial droop, slurred speech, headache; symptoms have resolved currently; r/o stroke; no known injury/head trauma COMPARISON: Head CT from earlier 10/20/2024. TECHNIQUE: Multiplanar MR imaging of the head was performed without contrast. FINDINGS: Acute Change: There is no evidence of restricted diffusion to suggest an acute infarct. Hemorrhage: No evidence of intracranial hemorrhage. Mass Lesion/ Mass Effect: No evidence of an intracranial mass or extra-axial fluid collection. No significant mass effect. Chronic Change: Minimal predominantly subcortical supratentorial white matter changes, which can be seen in chronic small vessel ischemic disease, chronic sequela of migraines, and numerous other etiologies; including vasculitis, and demyelination such as MS. Parenchyma: Moderate cerebellar volume loss. The brain parenchyma is otherwise within normal limits of signal intensity and morphology. Ventricles: Normal caliber and morphology. Skull Base: Hypothalamic and pituitary region are grossly normal. Craniocervical junction is normal. No significant marrow replacement process. Vasculature: Major intracranial arterial structures, and dural venous sinuses show typical flow void, suggesting patency. Other: Small probable mucous retention cyst within the inferomedial left maxillary sinus. Paranasal sinuses and mastoid air cells are otherwise clear. The orbits are unremarkable. The extracranial soft tissues are unremarkable. Report Ordering Provider: Guerline BEAN FINAL REPORT Dictated: 10/20/2024 12:25 pm Axel Garcia MD Signed (Electronic Signature): 10/20/2024 12:25 pm Signed by: Axel Garcia MD Transcribed by: REZA Technologist: ANDRA Normal [facility] U Drug Screenon 10-20-2024 Amphetamines Screen method >1000 ng/mL Ql (U) Negative Normal NEGATIVE [facility] Comment on above: Result Comment: Nega tive Cutoff: <1000 ng/mL Performed By: #### 2 [id number] #### [facility] [address] [place] [address] Barbiturates Screen Ql (U) Negative Normal NEGATIVE [facility] Comment on above: Result Comment: Nega tive Cutoff: <200 ng/mL Performed By: #### 2 [id number] #### [facility] [address] [place] [address] Benzodiazepines Ql (U) Negative Normal NEGATIVE [facility] Comment on above: Result Comment: Nega tive Cutoff: <200 ng/mL Performed By: #### 2 [id number] #### [facility] [address] [place] [address] Cannabinoids Screen Ql (U) Negative Normal NEGATIVE [facility] Comment on above: Result Comment: Nega tive Cutoff: <50 ng/mL Performed By: #### 2 [id number] #### [facility] [address] [place] [address] Cocaine Ql (U) Negative Normal NEGATIVE [facility] Comment on above: Result Comment: Nega tive Cutoff: <300 ng/mL Performed By: #### 2 [id number] #### [facility] [address] [place] [address] Opiates Screen Ql (U) Negative Normal NEGATIVE [facility] Comment on above: Result Comment: Nega tive Cutoff: <300 ng/mL Performed By: #### 2 [id number] #### [facility] [address] [place] [address] Phencyclidine Screen method >25 ng/mL Ql (U) Negative Normal NEGATIVE [facility] Comment on above: Result Comment: Nega tive Cutoff: <25 ng/mL These drug screen results are to be used for medical (i.e., treatment) purposes only. Unconfirmed drug screening results must not be used for non-medical purposes (e.g., employment testing, legal testing). Performed By: #### 2 [id number] #### [facility] [address] [place] [address] U Fentanyl Negative Normal NEGATIVE [facility] Comment on above: Result Comment: Nega tive Cutoff: <5 ng/mL These drug screen results are to be used for medical (i.e., treatment) purposes only. Unconfirmed drug screening results must not be used for non-medical purposes (e.g., employment testing, legal testing). Performed By: #### 2 [id number] #### [facility] [address] [place] [address] UA with Cult Rflxon 10-20-19 25 Bilirubin Ql (U) Negative Normal Negative [facility] Comment on above: Performed By: #### 4 [id number] #### [facility] [address] [place] [address] Clarity (U) Clear Normal Clear [facility] Comment on above: Performed By: #### 4 [id number] #### [facility] [address] [place] [address] Color (U) Yellow Normal Yellow [facility] Comment on above: Result Comment: Micr oscopic readings are only performed on those samples that meet specific criteria set forth by [facility]. Performed By: #### 4 [id number] #### [facility] [address] [place] [address] Glucose Ql (U) Negative Normal Negative [facility] Comment on above: Performed By: #### 4 [id number] #### [facility] [address] [place] [address] Hemoglobin Auto test strip (U) [Mass/Vol] Negative Normal Negative [facility] Comment on above: Performed By: #### 4 [id number] #### [facility] Laboratory [address] [place] [address] Ketones Auto test strip Ql (U) Negative Normal Negative [facility] Comment on above: Performed By: #### 4 [id number] #### [facility] Laboratory [address] [place] [address] Leukocyte esterase Auto test strip Ql (U) Negative Normal Negative [facility] Comment on above: Performed By: #### 4 [id number] #### [facility] Laboratory [address] [place] [address] Nitrite Auto test strip Ql (U) Negative Normal Negative [facility] Comment on above: Performed By: #### 4 [id number] #### [facility] Laboratory [address] [place] [address] pH (U) 5.5 [pH] Normal 5.0-9.0 [facility] Comment on above: Performed By: #### 4 [id number] #### [facility] Laboratory [address] [place] [address] Protein Ql (U) Negative Normal Negative [facility] Comment on above: Performed By: #### 4 [id number] #### [facility] Laboratory [address] [place] [address] Specific gravity (U) [Rel density] 1.028 Normal 1.005-1.030 [facility] Comment on above: Performed By: #### 4 [id number] #### [facility] Laboratory [address] [place] [address] Urobilinogen (U) [Mass/Vol] Negative Normal Negative [facility] Comment on above: Performed By: #### 4 [id number] #### [facility] Laboratory [address] [place] [address] Epithelial cells.squamous Auto (Urine sed) [#/Area] 0-2 Invalid Interpretation Code [facility] Comment on above: Performed By: #### 4 [id number] #### [facility] Laboratory [address] [place] [address] Mucus Auto Ql (U) 1+ CD:[id number] Abnormal Negative [facility] Comment on above: Performed By: #### 4 [id number] #### [facility] Laboratory [address] [place] [address] RBC Ql (U) 0-3 Normal 0-3 [facility] Comment on above: Performed By: #### 4 [id number] #### [facility] Laboratory [address] [place] [address] WBC Auto (Urine sed) [#/Area] 0-5 Normal 0-5 [facility] Comment on above: Performed By: #### 4 [id number] #### [facility] Laboratory [address] [place] [address] URINALYSISOrdered By: Maddison Acosta on 10-20-2024 Bilirubin Ql (U) Negative Normal Negativemg/ dL [facility] UA Auto SS Clarity (U) Clear (10/20/24 12:51 AM) Normal Clear [facility] UA Auto SS Color (U) Yellow 3 (10/20/24 12:51 AM) Normal Yellow [facility] Auto SS Comment on above: Interpretive Data: M icroscopic readings are only performed on those samples that meet specific criteria set forth by [facility]. Glucose Ql (U) Negative Normal Negativemg/ dL [facility] UA Auto SS Hemoglobin Auto test strip (U) [Mass/Vol] Negative (10/20/24 12:51 AM) Normal Negative [facility] UA Auto SS Ketones Auto test strip Ql (U) Negative Normal Negativemg/ dL [facility] UA Auto SS Leukocyte esterase Auto test strip Ql (U) Negative (10/20/24 12:51 AM) Normal Negative [facility] UA Auto SS Nitrite Auto test strip Ql (U) Negative Normal Negativemg/ dL [facility] UA Auto SS pH (U) 5.5 (10/20/24 12:51 AM) Normal 5.0 - 9.0 [facility] UA Auto SS Protein Ql (U) Negative Normal Negativemg/ dL [facility] UA Auto SS Specific gravity (U) [Rel density] 1.028 (10/20/24 12:51 AM) Normal 1.005 - 1.030 [facility] UA Auto SS Urobilinogen (U) [Mass/Vol] Negative Normal Negativemg/ dL [facility] UA Auto SS URINALYSISOrdered By: SYSTEM SYSTEM on 10-20-2024 Epithelial cells.squamous Auto (Urine sed) [#/Area] 0-2 graded/HPF Invalid Interpretation Code [facility] UA Auto SS Mucus Auto Ql (U) 1+ graded/LPF Invalid Interpretation Code Negativegra ded/LPF [facility] UA Auto SS RBC Ql (U) 0-3 graded/HPF Normal 0-3graded/H PF [facility] UA Auto SS WBC Auto (Urine sed) [#/Area] 0-5 graded/HPF Normal 0-5graded/H PF [facility] UA Auto SS URINALYSISOrdered By: Guerline BEAN on 10-20-2024 UA Spec Desc Clean Catch (10/20/24 12:51 AM) Normal [facility] UA Auto SS Vitamin D 25 Hydroxyon 10-20 25-hydroxyvitamin D3 [Mass/Vol] 12.7 ng/mL Low 30.0-100.0 [facility] Comment on above: Performed By: #### 5 [id number] #### [facility] Laboratory [address] [place] [address] eGFRon 10-20-2024 eGFR 106 mL/min/1.73 m2 Normal >=59 [facility] Comment on above: Performed By: #### 1 [id number] #### [facility] Laboratory [address] [place] [address] BB Draw & Holdon 10-19-2024 BB D&H Sample drawn for Blood Ba Normal [facility] Comment on above: Performed By: #### 1 [id number] #### [facility] Laboratory [address] [place] [address] CBC w/ Auto Diffon RBC size Nom (Bld) NORMAL Invalid Interpretation Code [facility] Comment on above: Performed By: #### 2 [id number] #### [facility] Laboratory [address] [place] [address] Basophils/100 WBC (Bld) 0.6 % Normal 0.0-2.0 [facility] Comment on above: Performed By: #### 2 [id number] #### [facility] Laboratory [address] [place] [address] Basophils/Leukocytes Auto (Bld) [Pure # fraction] 0.0 E9/L Normal 0.0-0.2 [facility] Comment on above: Performed By: #### 2 [id number] #### [facility] Laboratory [address] [place] [address] Eosinophils (Bld) [#/Vol] 0.2 E9/L Normal 0.0-0.5 [facility] Comment on above: Performed By: #### 2 [id number] #### [facility] Laboratory [address] [place] [address] Eosinophils/100 WBC (Bld) 3.9 % Normal 0.0-8.0 [facility] Comment on above: Performed By: #### 2 [id number] #### [facility] Laboratory [address] [place] [address] Erythrocyte distribution width (RBC) [Ratio] 14.1 % Normal 10.9-14.2 [facility] Comment on above: Performed By: #### 2 [id number] #### [facility] Laboratory [address] [place] [address] Hematocrit (Bld) [Volume fraction] 34.6 % Normal 34.0-46.0 [facility] Comment on above: Performed By: #### 2 [id number] #### [facility] Laboratory [address] [place] [address] Hemoglobin (Bld) [Mass/Vol] 11.9 g/dL Low 12.0-16.0 [facility] Comment on above: Performed By: #### 2 [id number] #### [facility] Laboratory [address] [place] [address] Lymphocytes (Bld) [#/Vol] 1.8 E9/L Normal 1.0-4.0 [facility] Comment on above: Performed By: #### 2 [id number] #### [facility] Laboratory [address] [place] [address] Lymphocytes/100 WBC (Bld) 33.3 % Normal 14.0-50.0 [facility] Comment on above: Performed By: #### 2 [id number] #### [facility] [address] [place] [address] MCH (RBC) [Entitic mass] 30.6 pg Normal 27.0-34.0 [facility] Comment on above: Performed By: #### 2 [id number] #### [facility] Laboratory [address] [place] [address] MCHC (RBC) [Mass/Vol] 34.2 g/dL Normal 31.4-36.0 [facility] Comment on above: Performed By: #### 2 [id number] #### [facility] Laboratory [address] [place] [address] MCV (RBC) [Entitic vol] 89.5 fL Normal 80.0-100.0 [facility] Comment on above: Performed By: #### 2 [id number] #### [facility] [address] [place] [address] Monocytes (Bld) [#/Vol] 0.4 E9/L Normal 0.2-1.0 [facility] Comment on above: Performed By: #### 2 [id number] #### [facility] [address] [place] [address] Neutrophils (Bld) [#/Vol] 2.9 E9/L Normal 2.0-7.5 [facility] Comment on above: Performed By: #### 2 [id number] #### [facility] [address] [place] [address] Neutrophils/100 WBC (Bld) 55.0 % Normal 36.0-75.0 [facility] Comment on above: Performed By: #### 2 [id number] #### [facility] [address] [place] [address] Platelet mean volume (Bld) [Entitic vol] 7.2 fL Normal 6.4-10.8 [facility] Comment on above: Performed By: #### 2 [id number] #### [facility] [address] [place] [address] Platelets (Bld) [#/Vol] 424.0 E9/L Normal 150.0-500.0 [facility] Comment on above: Performed By: #### 2 [id number] #### [facility] Laboratory [address] [place] [address] RBC (Bld) [#/Vol] 3.9 E12/L Low 4.3-5.9 [facility] Comment on above: Performed By: #### 2 [id number] #### [facility] Laboratory [address] [place] [address] WBC corrected for nucl RBC Auto (Bld) [#/Vol] 5.4 E9/L Normal 4.0-11.0 [facility] Comment on above: Performed By: #### 2 [id number] #### [facility] Laboratory [address] [place] [address] CHEMISTRYOrdered By: Arie DOOLEY User on 10-19-2024 Glucose [Mass/Vol] 93 mg/dL Normal 55 - 99 mg/dL [facility] POC Subsection Comment on above: Result Comment: Paul roche RN/ POC Username STEVIE BELLA Invalid Interpretation Code [facility] POC Subsection Sodium [Moles/Vol] [id number] mmol/L Invalid Interpretation Code [facility] POC Subsection Sodium [Moles/Vol] [id number] mmol/L Invalid Interpretation Code [facility] POC Subsection CHEMISTRYOrdered By: SYSTEM SYSTEM on 10-19-2024 Albumin [Mass/Vol] 3.9 g/dL Normal 3.3 - 5.0 gm/dL [facility] Albumin/Globulin [Mass ratio] 1.6 {ratio} Normal 1.1 - 2.2 [facility] ALP [Catalytic activity/Vol] 120 [iU]/d High 21 - 98 Int._Unit/L [facility] ALT No additional P-5'-P [Catalytic activity/Vol] 11 [iU]/d Normal 6 - 46 Int._Unit/L [facility] Anion gap [Moles/Vol] 9 mmol/L Normal 6 - 16 mEq/L [facility] AST [Catalytic activity/Vol] 14 [iU]/d Normal 5 - 43 Int._Unit/L [facility] Bilirubin [Mass/Vol] 0.4 mg/dL Normal 0.0 - 1 .1 mg/dL [facility] Calcium [Mass/Vol] 8.9 mg/dL Normal 8.9 - 11. 1 mg/dL [facility] Chloride [Moles/Vol] 110 mmol/L Normal 101 - 1 11 mmol/L [facility] CO2 [Moles/Vol] 24 mmol/L Normal 21 - 31 mmol/L [facility] Cobalamin (Vitamin B12) [Mass/Vol] 69 pg/mL Normal 50 - 1500 pg/mL [facility] Creatinine [Mass/Vol] 0.8 mg/dL Normal 0.5 - 1.3 mg/dL [facility] eGFR 87 mL/min/1.73 m2 Normal >=59mL/min / 1.73 m2 [facility] Ethanol Lvl mg/dL Normal <=11mg/dL [facility] Ferritin [Mass/Vol] 36 ng/mL Normal 11 - 307 ng/mL [facility] Folate [Mass/Vol] 20.7 ng/mL Normal >=6.7ng/mL [facility] Globulin (S) [Mass/Vol] 2.4 g/dL Normal 1.4 - 4.0 gm/dL [facility] Glucose [Mass/Vol] 107 mg/dL Normal 55 - 199 mg/dL [facility] Iron [Mass/Vol] 52 ug/dL Normal 35 - 153 mcg/dL [facility] Iron binding capacity [Mass/Vol] 342 ug/dL Normal 250 - 400 mcg/dL [facility] LDH 186 [iU]/d Normal 93 - 218 Int._Unit/L [facility] Magnesium [Mass/Vol] 1.9 mg/dL Normal 1.3 - 2 .4 mg/dL [facility] Potassium [Moles/Vol] 3.4 mmol/L Low 3.5 - 5.3 mmol/L [facility] Protein [Mass/Vol] 6.3 g/dL Normal 6.0 - 7.8 gm/dL [facility] Sodium [Moles/Vol] 140 mmol/L Normal 135 - 145 mmol/L [facility] Transferrin [Mass/Vol] 244 mg/dL Normal 200 - 370 mg/dL [facility] Troponin HS 10.80 pg/mL Normal 10.10 - 27.10 pg/mL [facility] Comment on above: Interpretive Data: T he 95% CI (Confidence Interval) PPV (Positive Predictive Value) for myocardial infarction in females is 38 pg/mL, in males 51 pg/mL. The results should be used in conjunction with clinical conditions of myocardial infarction. (Access High Sensitivity Troponin I Instructions For Use, Guillermo Beckwourth, April 2018) TSH Qn 1.53 m[IU]/L Normal 0.34 - 5.60 mcIU/mL [facility] Urea nitrogen [Mass/Vol] 22 mg/dL High 5 - 21 mg/dL [facility] Urea nitrogen/Creatinine [Mass ratio] 28 mg/mg High 10 - 20 [facility] CHEMISTRYOrdered By: Britta Ortega on 10-19-2024 HbA1c (Bld) [Mass fraction] 5.7 % Normal <=5.9% [facility] ChemAutoSS CMPon 10-19-2024 Albumin [Mass/Vol] 3.9 g/dL Normal 3.3-5.0 [facility] Comment on above: Performed By: #### 2 [id number] #### [facility] Laboratory [address] [place] [address] Albumin/Globulin (S) [Mass conc ratio] 1.6 Normal 1.1-2.2 [facility] Comment on above: Performed By: #### 2 [id number] #### [facility] Laboratory [address] [place] [address] ALP [Catalytic activity/Vol] 120 Int._Unit/L High 21-98 [facility] Comment on above: Performed By: #### 2 [id number] #### [facility] Laboratory [address] [place] [address] ALT No additional P-5'-P [Catalytic activity/Vol] 11 Int._Unit/L Normal 6-46 [facility] Comment on above: Performed By: #### 2 [id number] #### [facility] Laboratory [address] [place] [address] Anion gap [Moles/Vol] 9 mmol/L Normal 6-16 [facility] Comment on above: Performed By: #### 2 [id number] #### [facility] Laboratory [address] [place] [address] AST [Catalytic activity/Vol] 14 Int._Unit/L Normal 5-43 [facility] Comment on above: Performed By: #### 2 [id number] #### [facility] Laboratory [address] [place] [address] Bilirubin [Mass/Vol] 0.4 mg/dL Normal 0.0-1.1 [facility] Comment on above: Performed By: #### 2 [id number] #### [facility] Laboratory [address] [place] [address] Calcium [Mass/Vol] 8.9 mg/dL Normal 8.9-11.1 [facility] Comment on above: Performed By: #### 2 [id number] #### [facility] [address] [place] [address] Chloride [Moles/Vol] 110 mmol/L Normal 101-111 [facility] Comment on above: Performed By: #### 2 [id number] #### [facility] Laboratory [address] [place] [address] CO2 [Moles/Vol] 24 mmol/L Normal 21-31 [facility] Comment on above: Performed By: #### 2 [id number] #### [facility] Laboratory [address] [place] [address] Creatinine [Mass/Vol] 0.8 mg/dL Normal 0.5-1.3 [facility] Comment on above: Performed By: #### 2 [id number] #### [facility] [address] [place] [address] Globulin (S) [Mass/Vol] 2.4 g/dL Normal 1.4-4.0 [facility] Comment on above: Performed By: #### 2 [id number] #### [facility] [address] [place] [address] Glucose [Mass/Vol] 107 mg/dL Normal 55-199 [facility] Comment on above: Performed By: #### 2 [id number] #### [facility] Laboratory [address] [place] [address] Potassium [Moles/Vol] 3.4 mmol/L Low 3.5-5.3 [facility] Comment on above: Performed By: #### 2 [id number] #### [facility] [address] [place] [address] Protein [Mass/Vol] 6.3 g/dL Normal 6.0-7.8 [facility] Comment on above: Performed By: #### 2 [id number] #### [facility] [address] [place] [address] Sodium [Moles/Vol] 140 mmol/L Normal 135-145 [facility] Comment on above: Performed By: #### 2 [id number] #### [facility] [address] [place] [address] Urea nitrogen [Mass/Vol] 22 mg/dL High 5-21 [facility] Comment on above: Performed By: #### 2 [id number] #### [facility] [address] [place] [address] Urea nitrogen/Creatinine [Mass ratio] 28 No Units High 10-20 [facility] Comment on above: Performed By: #### 2 [id number] #### [facility] Laboratory [address] [place] [address] COAGULATIONOrdered By: Anabela Matute on 10-19-2024 aPTT Coag (PPP) [Time] 40.8 s High 25.1 - 36.5 second(s) [facility] Auto Coag Comment on above: Interpretive Data: P chrissymeter 15 days - 4 weeks 1 - 5 months 6 - 11 months 1 - 5 years 6 - 10 years 11 - 17 years PTT Mean: 35.4 (27.6-45.6) Mean: 33.5 (24.8-40.7) Mean: 32.4 (25.1-40.7) Mean: 31.6 (24.0-39.2) Mean: 31.6 (26.9-38.7) Mean: 31.0 (24.6-38.4) Pediatric Reference ranges were obtained from a study by Pedro Chacko et al. prepared from 1437 samples obtained at 7 different centers using the same coagulation reagent and instrumentation as [facility]. Currently there are no coagulation studies available worldwide for children to 14 days, and no normal ranges. Heparin therapeutic range (represented by Anti-Factor Xa activity of 0.2 - 0.4 U/mL) corresponds to PTT of 56.6 - 109.0 sec. INR Coag (PPP) [Relative time] 0.96 {INR} Invalid Interpretation Code [facility] Auto Coag Comment on above: Interpretive Data: I NR results are specifically intended to assess patients stabilized on long-term Anticoagulation therapy suggested INR s Less Intensive Anticoagulation 2.0 3.0 Conventional Range 3.0 4.5 PT Coag (PPP) [Time] 10.7 s Normal 9.4 - 1 2.5 second(s) [facility] Auto Coag Comment on above: Interpretive Data: 1 5 days - 4 weeks 1 - 5 months 6 -11 months 1-5 years 6-10 years 11 -17 years Mean: 11.2 (9.5-12.6) Mean: 11.0 (9.7-12.8) Mean: 11.0 (9.8-13.0) Mean: 11.3 (9.9-13.4) Mean: 11.7 (10.0-14.6) Mean: 11.8 (10.0 - 14.1) Pediatric Reference ranges were obtained from a study by Pedro Chacko et al. prepared from 1437 samples obtained at 7 different centers using the same coagulation reagent and instrumentation as [facility]. Currently there are no coagulation studies available worldwide for children to 14 days, and no normal ranges. CT Head or Brain w/o Contras ton 10-19-2024 CT Head or Brain w/o Contrast Exam Date/Time: 10/19/2024 17:18 EST Reason for Exam: Neuro deficit, acute, stroke suspected;Stroke Report IMPRESSION: NO ACUTE FINDINGS. THE ABOVE FINDINGS WERE DISCUSSED VIA TELEPHONE WITH DR. BERGMAN IN THE EMERGENCY DEPARTMENT AT 1733 HOURS, SATURDAY, OCTOBER 19, 2024. CT BRAIN WITHOUT INTRAVENOUS CONTRAST MEDIUM. HISTORY: RAPID RESPONSE. RULE OUT STROKE.. TECHNICAL FACTORS: CT imaging of the brain was obtained and formatted as 5 mm contiguous axial images. 2.5 mm contiguous axial images were obtained through the osseous structures. Sagittal and coronal reconstruction obtained during postprocessing. Comparison: None. Findings: Extra-axial spaces: Normal. Intracranial hemorrhage: None. Ventricular system: Without anomaly. Basal Cisterns: Normal. Cerebral Parenchyma: Without anomaly. Midline Shift: None. Cerebellum: Mildly prominent foramen magnum, normal variant. Paranasal sinuses and mastoid air cells: Normal. Visualized Orbits: Normal. All CT scans at this facility use dose modulation, iterative reconstruction, and/or weight based dosing when appropriate to reduce radiation dose to as low as reasonably achievable. Report Ordering Provider: Yung Oropeza FINAL REPORT Dictated: 10/19/2024 5:24 pm Juarze Staples MD Signed (Electronic Signature): 10/19/2024 5:24 pm Signed by: Juarez Staples MD Transcribed by: REZA Technologist: CML Normal [facility] Capillary Glucose POCon 10-06 Glucose [Mass/Vol] 93 mg/dL Normal 55-99 [facility] Comment on above: Result Comment: Paul roche RN/ Performed By: #### 2 [id number] #### [facility] Laboratory [address] [place] [address] ED Clinical Summaryon 2024 ED Clinical Summary ED Clinical Summary [address] [address] ED Clinical Summary Person Information Name: CONSTANTINO CARDOSO Roberto/New_Case Age: 54 Years : 1970 Sex: Female Language: Maltese PCP: JUDI YOUSSEF CNP Marital Status: Phone: [phone] MRN: Visit Id: Visit Reason: Facial droop; Headache; Potential stroke; POSS STROKE Speciality: Acuity: 2 Enc Type: Observation Med Service: Medical Arrival: 10/19/2024 17:04:11 Discharge: LOS: 000 02:07 Checkin: 10/19/2024 17:04:11 Checkout: 10/19/2024 19:11:15 Dispo Type: Admitted as IP to this [facility] EVENTS: Event Name Event Status Request Date/Time Start Date/Time Complete Date/Time Arrive Complete 10/19/2024 17:04:11 10/19/2024 17:04:11 10/19/2024 17:04:11 Document Home Meds Request 10/19/2024 17:04:11 Triage Complete 10/19/2024 17:04:11 10/19/2024 17:25:08 10/19/2024 17:25:08 Bed Assign Complete 10/19/2024 17:06:09 10/19/2024 17:06:09 10/19/2024 17:06:09 Dr Exam Complete 10/19/2024 17:06:09 10/19/2024 17:06:58 10/19/2024 17:06:58 RN Exam Complete 10/19/2024 17:06:09 10/19/2024 17:32:24 10/19/2024 17:32:24 RR Stroke Request 10/19/2024 17:06:16 EKG Complete 10/19/2024 17:06:54 10/19/2024 17:30:44 NPO Request 10/19/2024 17:06:54 Pending Labs Request 10/19/2024 17:06:54 Blood Collect Request 10/19/2024 17:06:54 Lab Complete 10/19/2024 17:06:54 10/19/2024 17:42:20 Patient Care Request 10/19/2024 17:06:54 CT Complete 10/19/2024 17:06:54 10/19/2024 17:09:36 10/19/2024 17:18:31 X-Ray Complete 10/19/2024 17:06:54 10/19/2024 17:12:17 10/19/2024 17:27:16 RT Request 10/19/2024 17:06:54 Registration Complete 10/19/2024 17:06:58 10/19/2024 18:07:07 10/19/2024 18:07:07 Pending Labs Complete 10/19/2024 17:11:11 10/19/2024 17:11:11 10/19/2024 17:11:11 Pending Labs Complete 10/19/2024 17:13:54 10/19/2024 17:13:54 10/19/2024 17:42:20 Lab Complete 10/19/2024 17:13:54 10/19/2024 17:13:54 10/19/2024 17:42:20 Patient Care Request 10/19/2024 17:16:14 Isolation Screening Request 10/19/2024 17:25:09 Wet Read Complete 10/19/2024 17:27:16 10/19/2024 17:28:05 10/19/2024 17:28:05 RR Stroke Request 10/19/2024 17:32:24 Consult Request 10/19/2024 18:03:58 Pending Labs Complete 10/19/2024 18:04:06 10/19/2024 18:04:06 10/19/2024 18:04:07 Meds Admin Complete 10/19/2024 18:04:20 10/19/2024 18:26:15 Hospitalist Consult Request 10/19/2024 18:04:20 Reg Complete Request 10/19/2024 18:07:07 Reg Bed Request Complete 10/19/2024 18:07:07 10/19/2024 18:07:07 10/19/2024 18:07:07 Observation Request 10/19/2024 18:10:06 Patient Care Request 10/19/2024 18:10:07 Patient Care Request 10/19/2024 18:10:07 Patient Care Request 10/19/2024 18:10:08 Patient Care Request 10/19/2024 18:10:09 Pending Labs Cancel 10/19/2024 18:18:20 10/19/2024 18:30:40 Lab Cancel 10/19/2024 18:18:20 10/19/2024 18:30:40 Pending Labs Complete 10/19/2024 18:31:12 10/19/2024 18:31:12 10/19/2024 18:43:54 Lab Complete 10/19/2024 18:31:12 10/19/2024 18:31:12 10/19/2024 18:43:54 Patient Care Request 10/19/2024 18:37:54 Consult Request 10/19/2024 18:37:54 Pending Labs Request 10/19/2024 18:37:54 Lab Request 10/19/2024 18:37:54 Meds Admin Request 10/19/2024 18:37:54 MRI Request 10/19/2024 18:37:54 RT Request 10/19/2024 18:37:54 Meds Admin Request 10/19/2024 18:38:17 NPO Request 10/19/2024 18:38:36 Pending Labs Request 10/19/2024 18:52:13 Lab Request 10/19/2024 18:52:13 Meds Admin Request 10/19/2024 18:52:13 Pending Labs Request 10/19/2024 18:52:44 Lab Request 10/19/2024 18:52:44 Urine Collect Request 10/19/2024 18:52:44 Patient Care Request 10/19/2024 18:56:28 Inpatient Bed Ready Complete 10/19/2024 19:11:15 10/19/2024 19:11:15 10/19/2024 19:11:15 ADDRESS: [address] [place] [phone] PHYS DOC NOTES: MEDICAL INFORMATION: Prescriptions Given: Medications to Continue with No Changes Other [...] Mouth 4 times a day. Refills: 0. naproxen (Naprosyn 500 mg Tab) 1 Tablets By Mouth 2 times a day as needed for pain. Refills: 0. ondansetron (Zofran ODT 4 mg Tab-Dis) 1 Tablets By Mouth every 6 hours as needed Nausea/Vomiting. Refills: 0. PATIENT EDUCATION INFORMATION: Instructions: Follow up: DIAGNOSIS: 1:Stroke-like symptoms; 2:Migraine headache; 3:Anemia; 4:Hypokalemia; 5:HTN (hypertension); 6:HLD (hyperlipidemia); 7:Gastroparesis; 8:Acid reflux; 9:Seizure; 10:Osteoarthritis; 11:Obesity due to excess calories; 12:On deep vein (more content not included)... Normal [facility] ED Note-Physicianon 10-19-19 ED Note-Physician ED Note-Physician Basic Information time Seen: Adam Prosper 10/19/2024 17:06 History of Present Illness 54 female presents emergency department by EMS with concerns for the possibility of stroke versus altered mental status. Last known well really not able to be established we believe it was sometime yesterday because the patient states that she woke up today with the symptoms. Patient states that she really just did not feel well she felt out of it all day today. Then at work she seemed to be a bit off so coworkers called for EMS. Patient did complain earlier of some chest pain although she is denying any chest pain right now. She does state that she has a bad headache not sure when this started. She reports history of hypertension no history of CAD or CVA she is not on any blood thinners and took no medications prior to arrival. EMS checked blood sugar was around 100 and otherwise noncontributory to her complaint. She states that she feels weak all over this does not seem to be 1 side or the other she seems generally weak. She reports no abdominal pain no vomiting diarrhea or other complaints. No other aggravating or relieving factors no other associated symptoms no other prior treatments or complaints. Family: Reviewed and noncontributory Social: lives at home Review of systems negative unless otherwise specified in the HPI. Physical Exam General: The patient appears well and in no apparent distress. Patient is resting comfortably on cart. Skin: Warm, dry, no pallor noted. Head: Normocephalic, atraumatic Neck: No JVD Eye: PERRLA, EOMI ENT: Moist mucus membranes Cardiovascular: Regular rate normal peripheral perfusion Respiratory: No respiratory distress no accessory muscle use no obvious audible wheezing Chest Wall: no deformity Musculoskeletal: normal ROM, no deformity, no swelling GI: Soft no obvious distention. No rebound or rigidity. No guarding. No tenderness. Neurological: A&O moves all extremities equal strength and symmetry patient does respond slowly to commands but does ultimately respond appropriately. Stroke scale score is very limited in any utility given that she is just generally weak all over therefore she has drift to her bilateral upper and lower extremities. Psychiatric: Cooperative and appropriate Procedure Patient is not a candidate for tenecteplase given unclear presentation and inability to establish last known well Medical Decision Making Workup in the ER has been reviewed and noted. CT read by the radiologist as no acute pathology. Patient is much more alert at this time but she does state that she is having significant headache. Therefore I did order some Toradol Benadryl and Reglan. Laboratory studies are essentially benign. Patient does state that she has had a history of migraine but not like this before. Therefore case discussed with the hospitalist for admission. Assessment/Plan Migraine headache (G43.909: Migraine, unspecified, not intractable, without status migrainosus) Weakness (R53.1: Weakness) Orders: diphenhydrAMINE, 25 mg = 0.5 mL, Injection, IV, Once, Stop date 10/19/24 18:03:00 EST, STAT, Start date 10/19/24 18:03:00 EST, 10/19/24 18:03:00 EST ketorolac, 30 mg = 1 mL, Injection, IV, Once, Stop date 10/19/24 18:03:00 EST, STAT, Start date 10/19/24 18:03:00 EST, 10/19/24 18:03:00 EST metoclopramide, 5 mg = 1 mL, Injection, IV Push, Once, Stop date 10/19/24 18:03:00 EST, STAT, Start date 10/19/24 18:03:00 EST, 10/19/24 18:03:00 EST ED Physician consult Hospitalist for continued care NIH Stroke Scale Disposition Plan Discharge Prescription List Prescriptions No active prescription medications Follow-up No qualifying data available Problem List/Past Medical History Ongoing Acid reflux Arthritis Asymptomatic microscopic hematuria Back pain Pearce esophagus BMI 26.0-26.9,adult Constipation Dark stools Diarrhea Epigastric pain Foreign body in stomach, sequela Gallstone Gastric bezoar Gastroparesis Hard stool Heartburn Hernia, hiatal High blood pressure Hx of urinary tract infection Irregular bowel habits Kidney stones Migraines Mixed incontinence urge and stress Nausea Nausea and vomiting Other post-traumatic urethral stricture, female Proteinuria Recurrent UTI Seizures Stomach pain Urinary urgency Historical Mitral valve prolapse Procedure/Surgical History Esophagogastroduodenoscop y (01/11/2022), Esophagogastroduodenoscop y (05/13/2021), Esophagogastroduodenoscop y (09/30/2020), Colonoscopy (03/13/2020), Esophagogastroduodenoscop y (01/30/2020), Colonoscopy (05/17/2019), Esophagogastroduodenoscop y (05/17/2019), Hernia surgical mesh (03/02/2019), Cholecystectomy, Hernia repair, Hysterectomy. Medications Inpatient No active inpatient medications Home albuterol HFA 90 mcg/inh MDI, 2 puff(s), Inhalation, q4hr, PRN, Not taking APAP/butalbital/caffeine 325 mg-50 mg-40 mg Tab, 1 tab(s), Oral, q12hr, PRN, Not ta (more content not included)... Normal [facility] Comment on above: Result Comment: Elec tronically Signed By: Prosper Bergman DO\.kenneth\Date and Time Signed: 10/19/24 18:09 EST ED Patient Education Noteon 10-19-2024 ED Patient Education Note ED Patient Education Note Normal [facility] ED Patient Summaryon 025 ED Patient Summary ED Patient Summary [address] [address] Patient Discharge Instructions Person Information Name: CONSTANTINO CARDOSO Age: 54 Years Arrival Date: 10/19/2024 17:04:11 Discharge Diagnosis: 1:Stroke-like symptoms; 2:Migraine headache; 3:Anemia; 4:Hypokalemia; 5:HTN (hypertension); 6:HLD (hyperlipidemia); 7:Gastroparesis; 8:Acid reflux; 9:Seizure; 10:Osteoarthritis; 11:Obesity due to excess calories; 12:On deep vein thrombosis (DVT) prophylaxis Primary Care Physician: JUDI YOUSSEF CNP Provider Information Primary Provider: Prosper Bergman DO Advanced Division Operations Manager:None The exam and treatment you received in the Emergency Department were for an urgent problem and are not intended as complete care. It is important that you follow up with a doctor, nurse practitioner, or physician???s dental ceramist assistant for ongoing care. If your symptoms become worse or you do not improve as expected and you are unable to reach your usual health care provider, you should return to the Emergency Department. We are available 24 hours a day. CONSTANTINO CARDOSO has been given the following list of patient education materials, prescriptions and follow-up instructions: Follow-up Instructions: In the event that this physician does not participate in your insurance network, please consult with your insurance company to find a nearby participating provider. Patient Education Materials: A MESSAGE TO ALL PATIENTS REGARDING OPIOIDS PRESCRIPTION OPIOIDS: WHAT YOU NEED TO KNOW Prescription opioids can be used to help relieve lemrnzde-fy-ijcune pain and are often prescribed following a [...] as well, even when taken as directed: ??? Tolerance???meaning you might need to take more of the medication for the same pain relief ??? Physical dependence???meaning you have symptoms of withdrawal when a medication is stopped ??? Increased sensitivity to pain ??? Constipation ??? Nausea, vomiting, and dry mouth ??? Sleepiness and dizziness ??? Confusion ??? Depression ??? Low levels of testosterone that can result in lower sex drive, energy, and strength ??? Itching and sweating RISKS ARE GREATER WITH: ??? History of drug misuse, substance use disorder, or overdose ??? Mental health conditions (such as depression or anxiety) ??? Sleep apnea ??? Older age (65 years and older) ??? Avoid alcohol while taking prescription opioids. Also, unless specifically advised by your health care provider, medications to avoid include: ??? Benzodiazepines (such as Xanax or Valium) ??? Muscle relaxants (such as Soma or Flexeril) ??? Hypnotics (such as Ambien or Lunesta) ??? Other prescription opioids KNOW YOUR OPTIONS Talk to your health care provider about ways to manage your pain that don???t involve prescription opioids. Some of these options may actually work better and have fewer risks and side effects. Options may include: ??? Pain relievers such as acetaminophen, ibuprofen, and naproxen ??? Some medication that are also used for depression or seizures ??? Physical therapy and exercise ??? Cognitive behavioral therapy, a psychological, goal-directed approach, in which patients learn how to modify physical, behavioral, and emotional triggers of pain and stress. IF YOU ARE PRESCRIBED OPIOIDS FOR PAIN: ??? Never take opioids in greater amounts or more often than prescribed. ??? Follow up with your primary health care provider. o Work together to create a plan on how to manage your pain. o Talk about ways to help manage your pain that don???t involve prescription opioids. o Talk about any and all concerns and side effects. ??? Help prevent misuse and abuse o Never sell or share prescription opioids. o Never use another person???s prescription opioids. ??? Store prescription opioids in a secure place and out of reach of others (this may include visitors, children, friends, and family). ??? Safely dispose of unused prescription opioids: Find your community drug take-back program or your pharmacy mail-back program, or flush them down the toilet, following guidance from the Food and Drug Administration (www.fda.gov/Drugs/Resour cesForYou). ??? Visit www.cdc.gov/drugoverdose to learn about the risks of opioids abuse and overdose. ??? If you believe you (more content not included)... Normal [facility] Ethanolon 10-19-2024 Ethanol Lvl <10 Normal <=11 [facility] Comment on above: Performed By: #### 2 [id number] #### [facility] [address] [place] [address] Ferritinon 10-19-2024 Ferritin [Mass/Vol] 36 ng/mL Normal 11-307 Fish r [facility] Comment on above: Performed By: #### 2 [id number] #### [facility] [address] [place] [address] Folateon 10-19-2024 Folate [Mass/Vol] 20.7 ng/mL Normal >=6.7 [facility] Comment on above: Performed By: #### 2 [id number] #### [facility] [address] [place] [address] HEMATOLOGYOrdered By: SYSTEM SYSTEM on 10-19-2024 Basophils/100 WBC (Bld) 0.6 % Normal 0.0 - 2.0 % Remisol Heme Basophils/Leukocytes Auto (Bld) [Pure # fraction] 0.0 E9/L Normal 0.0 - 0.2 E9/L Remisol Heme Eosinophils (Bld) [#/Vol] 0.2 E9/L Normal 0.0 - 0.5 E9/L Remisol Heme Eosinophils/100 WBC (Bld) 3.9 % Normal 0.0 - 8.0 % Remisol Heme Erythrocyte distribution width (RBC) [Ratio] 14.1 % Normal 10.9 - 14.2 % Remisol Heme Hematocrit (Bld) [Volume fraction] 34.6 % Normal 34.0 - 46.0 % Remisol Heme Hemoglobin (Bld) [Mass/Vol] 11.9 g/dL Low 12.0 - 16.0 gm/dL Remisol Heme Lymphocytes (Bld) [#/Vol] 1.8 E9/L Normal 1.0 - 4.0 E9/L Remisol Heme Lymphocytes/100 WBC (Bld) 33.3 % Normal 14.0 - 50.0 % Remisol Heme MCH (RBC) [Entitic mass] 30.6 pg Normal 27.0 - 34.0 pg Remisol Heme MCHC (RBC) [Mass/Vol] 34.2 g/dL Normal 31.4 - 36.0 gm/dL Remisol Heme MCV (RBC) [Entitic vol] 89.5 fL Normal 80.0 - 100.0 fL Remisol Heme Monocytes (Bld) [#/Vol] 0.4 E9/L Normal 0.2 - 1.0 E9/L Remisol Heme Monocytes/100 WBC (Bld) 7.2 % Normal 4.0 - 14.0 % Remisol Heme Neutrophils (Bld) [#/Vol] 2.9 E9/L Normal 2.0 - 7.5 E9/L Remisol Heme Neutrophils/100 WBC (Bld) 55.0 % Normal 36.0 - 75.0 % Remisol Heme Platelet mean volume (Bld) [Entitic vol] 7.2 fL Normal 6.4 - 10.8 fL Remisol Heme Platelets (Bld) [#/Vol] 424.0 E9/L Normal 150.0 - 500.0 E9/L Remisol Heme RBC (Bld) [#/Vol] 3.9 E12/L Low 4.3 - 5.9 E12/L Remisol Heme RBC size Nom (Bld) NORMAL *NA* (10/19/24 5:06 PM) Invalid Interpretation Code Remisol Heme Reticulocytes/100 RBC (Bld) 2.4 % High 0.5 - 2.2 % Remisol Heme WBC corrected for nucl RBC Auto (Bld) [#/Vol] 5.4 E9/L Normal 4.0 - 11.0 E9/L Remisol Heme TyhV2guw 10-19-2024 HbA1c (Bld) [Mass fraction] 5.7 % Normal <=5.9 [facility] Comment on above: Performed By: #### 7 [id number] #### [facility] [address] [place] [address] Ironon 10-19-2024 Iron [Mass/Vol] 52 microgram/dL Normal 35-153 Fish [facility] Comment on above: Performed By: #### 2 [id number] #### [facility] [address] [place] [address] LDHon 10-19-2024 LDH 186 Int._Unit/L Normal 93-218 [facility] Comment on above: Performed By: #### 2 [id number] #### [facility] [address] [place] [address] Lab Miscellaneous-LCon 10-19 Test Code [id number] Invalid Interpretation Code [facility] Comment on above: Performed By: #### 1 [id number] #### [facility] [address] [place] [address] Test Name Hypercoag Prof Invalid Interpretation Code [facility] Comment on above: Performed By: #### 1 [id number] #### [facility] [address] [place] [address] Magnesiumon 10-19-2024 Magnesium [Mass/Vol] 1.9 mg/dL Normal 1.3-2.4 [facility] Comment on above: Performed By: #### 2 [id number] #### [facility] [address] [place] [address] PT & PTTon 10-19-2024 aPTT Coag (PPP) [Time] 40.8 second(s) High 25.1-36.5 [facility] Comment on above: Result Comment: Para meter 15 days - 4 weeks 1 - 5 months 6 - 11 months 1 - 5 years 6 - 10 years 11 - 17 years PTT Mean: 35.4 (27.6-45.6) Mean: 33.5 (24.8-40.7) Mean: 32.4 (25.1-40.7) Mean: 31.6 (24.0-39.2) Mean: 31.6 (26.9-38.7) Mean: 31.0 (24.6-38.4) Pediatric Reference ranges were obtained from a study by elsa Torres al. prepared from 1437 samples obtained at 7 different centers using the same coagulation reagent and instrumentation as [facility]. Currently there are no coagulation studies available worldwide for children to 14 days, and no normal ranges. Heparin therapeutic range (represented by Anti-Factor Xa activity of 0.2 - 0.4 U/mL) corresponds to PTT of 56.6 - 109.0 sec. Performed By: #### 1 [id number] #### [facility] [address] [place] [address] INR Coag (PPP) [Relative time] 0.96 {INR} Invalid Interpretation Code [facility] Comment on above: Result Comment: INR results are specifically intended to assess patients stabilized on long-term Anticoagulation therapy suggested INR???s ???Less Intensive Anticoagulation??? 2.0 ??? 3.0 Conventional Range 3.0 ??? 4.5 Performed By: #### 1 [id number] #### [facility] [address] [place] [address] PT Coag (PPP) [Time] 10.7 second(s) Normal 9.4-12.5 [facility] Comment on above: Result Comment: 15 d ays - 4 weeks 1 - 5 months 6 -11 months 1- 5 years 6-10 years 11 -17 years Mean: 11.2 (9.5-12.6) Mean: 11.0 (9.7-12.8) Mean: 11.0 (9.8-13.0) Mean: 11.3 (9.9-13.4) Mean: 11.7 (10.0-14.6) Mean: 11.8 (10.0 - 14.1) Pediatric Reference ranges were obtained from a study by Pedro Chacko et al. prepared from 1437 samples obtained at 7 different centers using the same coagulation reagent and instrumentation as [facility]. Currently there are no coagulation studies available worldwide for children to 14 days, and no normal ranges. Performed By: #### 1 [id number] #### [facility] [address] [place] [address] Pre-Arrival Noteon Pre-Arrival Note Pre-Arrival Note Pre-Arrival Summary Name: , formerly [facility], [facility] Current Date: 10/19/2024 17:08:25 EST Gender: Female Date of : Age: 50 Pre-Arrival Type: EMS ETA: 10/19/2024 17:20:00 EST Primary Care Physician: Presenting Problem: facial droop / slurred speech Pre-Arrival User: Stevie Bella Referring Source: Location: PA Completion Date/Time: 10/19/2024 16:51:00 [facility] Emergency Department Pre-Hospital Report Form ____ Vital Signs: Pre-Hospital Report: Treatment in Route: Response to Treatment: Misc. Issues: Normal [facility] Reference Laboratory Testing Ordered By: Guerline BEAN on 10-19-2024 Sodium [Moles/Vol] 071509 mmol/L Invalid Interpretation Code [facility] SendOutsSS Test Name Hypercoag Prof Invalid Interpretation Code [facility] SendOutsSS Retic Counton 10-19-2024 Reticulocytes/100 RBC (Bld) 2.4 % High 0.5-2.2 [facility] Comment on above: Performed By: #### 2 [id number] #### [facility] [address] [place] [address] TIBC Calculatedon 10-19-2024 Iron binding capacity [Mass/Vol] 342 microgram/dL Normal 250-400 [facility] Comment on above: Performed By: #### 1 [id number] #### [facility] [address] [place] [address] Transferrin [Mass/Vol] 244 mg/dL Normal 200-370 [facility] Comment on above: Performed By: #### 1 [id number] #### [facility] [address] [place] [address] TSH With T4fr Reflexon 10-19 TSH Qn 1.53 m[IU]/L Normal 0.34-5.60 [facility] Comment on above: Performed By: #### 1 [id number] #### [facility] [address] [place] [address] Troponin 0 Hr.on 10-19-2024 Troponin HS 10.80 pg/mL Normal 10.10-27.10 [facility] Comment on above: Result Comment: The 95% CI (Confidence Interval) PPV (Positive Predictive Value) for myocardial infarction in females is 38 pg/mL, in males 51 pg/mL. The results should be used in conjunction with clinical conditions of myocardial infarction. (Access High Sensitivity Troponin I Instructions For Use, Giullermo Beckwourth, April 2018) Performed By: #### 1 [id number] #### [facility] [address] [place] [address] UA with Cult Rflxon 10-19-19 Type of Urine collection method Clean Catch Normal [facility] Comment on above: Performed By: #### 4 [id number] #### [facility] [address] [place] [address] Vit B12on 10-19-2024 Cobalamin (Vitamin B12) [Mass/Vol] 69 pg/mL Normal 50-1500 [facility] Comment on above: Performed By: #### 2 [id number] #### [facility] [address] [place] [address] XR Chest Single Viewon 10-19 XR Chest Single View Exam Date/Time: 10/19/2024 17:27 EST Reason for Exam: Chest pain Report IMPRESSION: NO ACUTE CARDIOPULMONARY DISEASE. CLINICAL HISTORY: Chest pain COMPARISON: 09/30/2020 FINDINGS: Osseous structures intact. Cardiopericardial silhouette normal. Pulmonary vasculature normal. Lungs clear. Ordering Provider: Yung Oropeza FINAL REPORT Dictated: 10/19/2024 5:31 pm Juarez Staples MD Signed (Electronic Signature): 10/19/2024 5:31 pm Signed by: Juarez Staples MD Transcribed by: REZA Technologist: BRIELLE Valentin [facility] eGFRon 10-19-2024 eGFR 87 mL/min/1.73 m2 Normal >=59 [facility] Comment on above: Performed By: #### 1 [id number] #### [facility] [address] [place] [address] Office Visiton 09-17-2024 Follow-up visit [id number] Marly Cardoso 1970 F Date Provider Department Center 09/17/2024 [id number] MICHAEL Zhao Family History Problem Relation Age of Onset Heart attack Father Family Status - Relation Status Age at Father Level of Service:76637 [facility] OFFICE/OUTPATIENT ESTABLISHED MOD MDM 30 MIN Reason for Visit and Comments: Palpitations [237932] - Occurring no more than usual for her she says. Valve Disorder [3372] - Denies chest pain and SOB. Hypertension [354686] Fatigue [46] - C/o fatigue and no energy . Normal [facility] Basic Metab w/rfx MGon 08-30 Anion gap [Moles/Vol] 11 mmol/L Normal 9-16 [facility] Comment on above: Performed By: #### P HO, BMPX, MG, CDP #### [facility] [employer] [address] [place] [address] Chart Snatcher: Josef Rivera MD Calcium [Mass/Vol] 9.4 mg/dL Normal 8.6-10.4 [facility] Comment on above: Performed By: #### P HO, BMPX, MG, CDP #### [facility] [address] [place] [address] Chart Snatcher: Josef Rivera MD Chloride [Moles/Vol] 105 mmol/L Normal 98-107 [facility] Comment on above: Performed By: #### P HO, BMPX, MG, CDP #### [employer] [address] [place] [address] Chart Snatcher: Josef Rivera MD CO2 [Moles/Vol] 24 mmol/L Normal 20-31 [facility] Comment on above: Performed By: #### P HO, BMPX, MG, CDP #### [facility] [address] [place] [address] Chart Snatcher: Josef Rivera MD Creatinine [Mass/Vol] 0.8 mg/dL Normal 0.6-0.9 [facility] Comment on above: Performed By: #### P HO, BMPX, MG, CDP #### [facility] [address] [place] [address] [id number] Chart Snatcher: Josef Rivera MD GFR/1.73 sq M.predicted among [...] #### P HO, BMPX, MG, CDP #### [facility] [address] [place] [address] Chart Snatcher: Josef Rivera MD Glucose [Mass/Vol] 107 mg/dL High 74-99 [facility] Comment on above: Performed By: #### P HO, BMPX, MG, CDP #### [facility] [address] [place] [address] Chart Snatcher: Josef Rivera MD Potassium [Moles/Vol] 3.8 mmol/L Normal 3.7-5.3 [facility] Comment on above: Performed By: #### P HO, BMPX, MG, CDP #### [employer] [address] [place] [address] Chart Snatcher: Josef Rivera MD Sodium [Moles/Vol] 140 mmol/L Normal 136-145 [facility] Comment on above: Performed By: #### P HO, BMPX, MG, CDP #### [employer] [address] [place] [address] Chart Snatcher: Josef Rivera MD Urea nitrogen [Mass/Vol] 5 mg/dL Low 6-20 [facility] Comment on above: Performed By: #### P HO, BMPX, MG, CDP #### [facility] [address] [id number] Chart Snatcher: Josef Rivera MD Basic Metabolic Panel w/ Ref galen to MGon 08-30-2024 Anion gap [Moles/Vol] 11 mmol/L 9 - 16 mmol/L [facility] Calcium [Mass/Vol] 9.4 mg/dL 8.6 - 10. 4 mg/dL [facility] Chloride [Moles/Vol] 105 mmol/L 98 - 10 7 mmol/L [facility] CO2 [Moles/Vol] 24 mmol/L 20 - 31 mmol/L [facility] Creatinine [Mass/Vol] 0.8 mg/dL 0.6 - 0.9 mg/dL [facility] Est, Glom Filt Rate 88 - PINF [facility] Comment on above: These results are [...] 107 mg/dL High 74 - 99 mg/dL [facility] Interpretation and review of laboratory results Abnormal [facility] Potassium [Moles/Vol] 3.8 mmol/L 3.7 - 5.3 mmol/L [facility] Sodium [Moles/Vol] 140 mmol/L 136 - 145 mmol/L [facility] Urea nitrogen [Mass/Vol] 5 mg/dL Low 6 - 20 mg/dL [facility] CBC with Auto Differentialon 08-30-2024 Basophils (Bld) [#/Vol] 0.03 10*3/uL [facility] Basophils/100 WBC (Bld) 1 % 0 - 2 % [facility] Eosinophils (Bld) [#/Vol] 0.27 10*3/uL [facility] Eosinophils/100 WBC (Bld) 5 % High 1 - 4 % [facility] Erythrocyte distribution width (RBC) [Ratio] 12.7 % 11.8 - 14.4 % [facility] Hematocrit (Bld) [Volume fraction] 37.4 % 36.3 - 47.1 % [facility] Hemoglobin (Bld) [Mass/Vol] 11.5 g/dL Low 11.9 - 15.1 g/dL [facility] Immature granulocytes (Bld) [#/Vol] [facility] Immature granulocytes/100 WBC (Bld) 0 % 0 [facility] Interpretation and review of laboratory results Abnormal [facility] Lymphocytes/100 WBC (Bld) 25 % 24 - 43 % [facility] Lymphocytes/100 WBC (Bld) 1.35 % [facility] MCH (RBC) [Entitic mass] 28.8 pg 25.2 - 33.5 pg [facility] MCHC (RBC) [Mass/Vol] 30.7 g/dL 28.4 - 34.8 g/dL [facility] MCV (RBC) [Entitic vol] 93.5 fL 82.6 - 102.9 fL [facility] Monocytes/100 WBC (Bld) 9 % 3 - 12 % [facility] Monocytes/100 WBC (Bld) 0.46 % [facility] Neutrophils/100 WBC (Bld) 60 % 36 - 65 % [facility] Nucleated RBC/100 WBC (Bld) [Ratio] 0.0 % 0.0 per 100 WBC [facility] Platelet mean volume (Bld) [Entitic vol] 9.1 fL 8.1 - 13.5 fL [facility] Platelets (Bld) [#/Vol] 321 10*3/uL [facility] RBC (Bld) [#/Vol] 4.00 10*6/uL 3.95 - 5.1 1 m/uL [facility] Segmented neutrophils/100 WBC (Bld) 3.27 % [facility] WBC other (Bld) [#/Vol] 5.4 [facility] CBC with Diffon 08-30-2024 Abs. Basophil 0.03 k/uL Normal 0.00-0.20 [facility] Comment on above: Performed By: #### P HO, BMPX, MG, CDP #### [facility] [employer] [address] [place] [address] Chart Snatcher: Josef Rivera MD Abs.Imm.Granulocyte <0.03 Normal 0.00-0.30 [facility] Comment on above: Performed By: #### P HO, BMPX, MG, CDP #### [facility] [employer] [address] [place] [address] Chart Snatcher: Josef Rivera MD Abs.Neutrophil (Seg) 3.27 k/uL Normal 1.50-8.10 [facility] Comment on above: Performed By: #### P HO, BMPX, MG, CDP #### [facility] [employer] [address] [place] [address] Chart Snatcher: Josef Rivera MD Basophils/100 WBC (Bld) 1 % Normal 0-2 [facility] Comment on above: Performed By: #### P HO, BMPX, MG, CDP #### [facility] [employer] [address] [place] [address] 38882 Chart Snatcher: Josef Rivera MD Eosinophils (Bld) [#/Vol] 0.27 10*3/uL Normal 0.00-0.44 [facility] Comment on above: Performed By: #### P HO, BMPX, MG, CDP #### [facility] [employer] [address] [place] [address] 12283 Chart Snatcher: Josef Rivera MD Eosinophils/100 WBC (Bld) 5 % High 1-4 [facility] Comment on above: Performed By: #### P HO, BMPX, MG, CDP #### [facility] [employer] [address] [place] [address] 17534 Chart Snatcher: Josef Rivera MD Erythrocyte distribution width (RBC) [Ratio] 12.7 % Normal 11.8-14.4 [facility] Comment on above: Performed By: #### P HO, BMPX, MG, CDP #### [facility] [employer] [address] [place] [address] 06604 Chart Snatcher: Josef Rivera MD Hematocrit (Bld) [Volume fraction] 37.4 % Normal 36.3-47.1 [facility] Comment on above: Performed By: #### P HO, BMPX, MG, CDP #### [facility] [employer] [address] [place] [address] 44610 Chart Snatcher: Josef Rivera MD Hemoglobin (Bld) [Mass/Vol] 11.5 g/dL Low 11.9-15.1 [facility] Comment on above: Performed By: #### P HO, BMPX, MG, CDP #### [facility] [employer] [address] [place] [address]15 Chart Snatcher: Josef Rivera MD Immature granulocytes/100 WBC (Bld) 0 % Normal 0 [facility] Comment on above: Performed By: #### P HO, BMPX, MG, CDP #### [facility] [employer] [address] [place] [address]10 Chart Snatcher: Josef Rivera MD Lymphocytes (Bld) [#/Vol] 1.35 10*3/uL Normal 1.10-3.70 [facility] Comment on above: Performed By: #### P HO, BMPX, MG, CDP #### [facility] [employer] [address] [place] [address] 28503 Chart Snatcher: Josef Rivera MD Lymphocytes/100 WBC (Bld) 25 % Normal 24-43 [facility] Comment on above: Performed By: #### P HO, BMPX, MG, CDP #### [facility] [address] [place] [address] 06525 Chart Snatcher: Josef Rivera MD MCH (RBC) [Entitic mass] 28.8 pg Normal 25.2-33.5 [facility] Comment on above: Performed By: #### P HO, BMPX, MG, CDP #### [address] [address] Chart Snatcher: Josef Rivera MD MCHC (RBC) [Mass/Vol] 30.7 g/dL Normal 28.4-34.8 [facility] Comment on above: Performed By: #### P HO, BMPX, MG, CDP #### [place] [address] Chart Snatcher: Josef Rivera MD MCV (RBC) [Entitic vol] 93.5 fL Normal 82.6-102.9 [facility] Comment on above: Performed By: #### P HO, BMPX, MG, CDP #### [place] [address] Chart Snatcher: Josef Rivera MD Monocytes (Bld) [#/Vol] 0.46 10*3/uL Normal 0.10-1.20 [facility] Comment on above: Performed By: #### P HO, BMPX, MG, CDP #### [address] [address] Chart Snatcher: Josef Rivera MD Monocytes/100 WBC (Bld) 9 % Normal 3-12 [facility] Comment on above: Performed By: #### P HO, BMPX, MG, CDP #### [place] [address] Chart Snatcher: Josef Rivera MD Neutrophil (Seg) 60 % Normal 36-65 [facility] Comment on above: Performed By: #### P HO, BMPX, MG, CDP #### [facility] [employer] [address] [place] [address] Chart Snatcher: Josef Rivera MD NRBC Automated 0.0 per 100 WBC Normal 0.0 [facility] Comment on above: Performed By: #### P HO, BMPX, MG, CDP #### [facility] [address] [place] [address] Chart Snatcher: Josef Rivera MD Platelet mean volume (Bld) [Entitic vol] 9.1 fL Normal 8.1-13.5 [facility] Comment on above: Performed By: #### P HO, BMPX, MG, CDP #### [facility] [address] [place] [address] 91666 Chart Snatcher: Josef Rivera MD Platelets (Bld) [#/Vol] 321 10*3/uL Normal 138-453 [facility] Comment on above: Performed By: #### P HO, BMPX, MG, CDP #### [facility] [employer] [address] [place] [address] 58106 Chart Snatcher: Josef Rivera MD RBC (Bld) [#/Vol] 4.00 10*6/uL Normal 3.95-5.11 [facility] Comment on above: Performed By: #### P HO, BMPX, MG, CDP #### [facility] [employer] [address] [place] [address] 95759 Chart Snatcher: Josef Rivera MD WBC (Bld) [#/Vol] 5.4 10*3/uL Normal 3.5-11.3 [facility] Comment on above: Performed By: #### P HO, BMPX, MG, CDP #### [facility] [address] [place] [address] 93688 Chart Snatcher: Josef Rivera MD Glucose,Whole Bloodon 2023 Glucose [Mass/Vol] 104 mg/dL Normal 65-105 [facility] Glucose [Mass/Vol] 120 mg/dL High 65-105 [facility] Glucose [Mass/Vol] 97 mg/dL Normal 65-105 [facility] POC Glucose Fingerstickon Glucose [Mass/Vol] 104 mg/dL 65 - 105 mg/dL [facility] Glucose [Mass/Vol] 120 mg/dL High 65 - 105 mg/dL [facility] Interpretation and review of laboratory results Abnormal [facility] Glucose [Mass/Vol] 97 mg/dL 65 - 105 mg/dL [facility] Basic Metab w/rfx MGon 08-29 Anion gap [Moles/Vol] 12 mmol/L Normal 9-16 [facility] Comment on above: Performed By: #### P HO, BMPX, MG, CDP #### [facility] [employer] [address] [place] [address] Chart Snatcher: Josef Rivera MD Calcium [Mass/Vol] 8.9 mg/dL Normal 8.6-10.4 [facility] Comment on above: Performed By: #### P HO, BMPX, MG, CDP #### [facility] [address] [place] [address] Chart Snatcher: Josef Rivera MD Chloride [Moles/Vol] 106 mmol/L Normal 98-107 [facility] Comment on above: Performed By: #### P HO, BMPX, MG, CDP #### [facility] [address] [place] [address] 22263 Chart Snatcher: Josef Rivera MD CO2 [Moles/Vol] 22 mmol/L Normal 20-31 [facility] Comment on above: Performed By: #### P HO, BMPX, MG, CDP #### [facility] [address] [place] [address] 89921 Chart Snatcher: Josef Rivera MD Creatinine [Mass/Vol] 0.7 mg/dL Normal 0.6-0.9 [facility] Comment on above: Performed By: #### P HO, BMPX, MG, CDP #### [facility] [address] [place] [address] [phone] Chart Snatcher: Josef Rivera MD GFR/1.73 sq M.predicted among [...] #### P HO, BMPX, MG, CDP #### [facility] [address] [place] [address] 08789 Chart Snatcher: Josef Rivera MD Glucose [Mass/Vol] 100 mg/dL High 74-99 [facility] Comment on above: Performed By: #### P HO, BMPX, MG, CDP #### [facility] [address] [place] [address] 28011 Chart Snatcher: Josef Rivera MD Potassium [Moles/Vol] 3.4 mmol/L Low 3.7-5.3 [facility] Comment on above: Performed By: #### P HO, BMPX, MG, CDP #### [facility] [facility] [address] [place] [address] 63792 Chart Snatcher: Josef Rivera MD Sodium [Moles/Vol] 140 mmol/L Normal 136-145 [facility] Comment on above: Performed By: #### P HO, BMPX, MG, CDP #### [facility] [facility] [employer] [address] [place] [address] 58912 Chart Snatcher: Josef Rivera MD Urea nitrogen [Mass/Vol] 9 mg/dL Normal 6-20 [facility] Comment on above: Performed By: #### P HO, BMPX, MG, CDP #### [facility] [address] [id number] Chart Snatcher: Josef Rivera MD Basic Metabolic Panel w/ Ref galen to MGon 08-29-2024 Anion gap [Moles/Vol] 12 mmol/L 9 - 16 mmol/L [facility] Calcium [Mass/Vol] 8.9 mg/dL 8.6 - 10. 4 mg/dL [facility] Chloride [Moles/Vol] 106 mmol/L 98 - 10 7 mmol/L [facility] CO2 [Moles/Vol] 22 mmol/L 20 - 31 mmol/L [facility] Creatinine [Mass/Vol] 0.7 mg/dL 0.6 - 0.9 mg/dL [facility] Est, Glom Filt Rate - PINF [facility] Comment on above: These results are [...] 100 mg/dL High 74 - 99 mg/dL [facility] Interpretation and review of laboratory results Abnormal [facility] Potassium [Moles/Vol] 3.4 mmol/L Low 3.7 - 5.3 mmol/L [facility] Sodium [Moles/Vol] 140 mmol/L 136 - 145 mmol/L [facility] Urea nitrogen [Mass/Vol] 9 mg/dL 6 - 20 mg/dL [facility] CBC with Auto Differentialon 08-29-2024 Basophils (Bld) [#/Vol] [facility] Basophils/100 WBC (Bld) 0 % 0 - 2 % [facility] Eosinophils (Bld) [#/Vol] 0.24 10*3/uL [facility] Eosinophils/100 WBC (Bld) 4 % 1 - 4 % [facility] Erythrocyte distribution width (RBC) [Ratio] 13.1 % 11.8 - 14.4 % [facility] Hematocrit (Bld) [Volume fraction] 35.8 % Low 36.3 - 47.1 % [facility] Hemoglobin (Bld) [Mass/Vol] 11.2 g/dL Low 11.9 - 15.1 g/dL [facility] Immature granulocytes (Bld) [#/Vol] [facility] Immature granulocytes/100 WBC (Bld) 0 % 0 [facility] Interpretation and review of laboratory results Abnormal [facility] Lymphocytes/100 WBC (Bld) 25 % 24 - 43 % [facility] Lymphocytes/100 WBC (Bld) 1.43 % [facility] MCH (RBC) [Entitic mass] 29.2 pg 25.2 - 33.5 pg [facility] MCHC (RBC) [Mass/Vol] 31.3 g/dL 28.4 - 34.8 g/dL [facility] MCV (RBC) [Entitic vol] 93.2 fL 82.6 - 102.9 fL [facility] Monocytes/100 WBC (Bld) 7 % 3 - 12 % [facility] Monocytes/100 WBC (Bld) 0.39 % [facility] Neutrophils/100 WBC (Bld) 63 % 36 - 65 % [facility] Nucleated RBC/100 WBC (Bld) [Ratio] 0.0 % 0.0 per 100 WBC [facility] Platelet mean volume (Bld) [Entitic vol] 9.2 fL 8.1 - 13.5 fL [facility] Platelets (Bld) [#/Vol] 318 10*3/uL [facility] RBC (Bld) [#/Vol] 3.84 10*6/uL Low 3.95 - 5.1 1 m/uL [facility] Segmented neutrophils/100 WBC (Bld) 3.62 % [facility] WBC other (Bld) [#/Vol] 5.7 [facility] CBC with Diffon 12-25-2024 Abs. Basophil <0.03 Normal 0.00-0.20 [facility] Comment on above: Performed By: #### P HO, BMPX, MG, CDP #### [address] [address] Chart Snatcher: Josef Rivera MD Abs.Imm.Granulocyte <0.03 Normal 0.00-0.30 [facility] Comment on above: Performed By: #### P HO, BMPX, MG, CDP #### [address] [address] Chart Snatcher: Josef Rivera MD Abs.Neutrophil (Seg) 3.62 k/uL Normal 1.50-8.10 [facility] Comment on above: Performed By: #### P HO, BMPX, MG, CDP #### [address] [address] Chart Snatcher: Josef Rivera MD Basophils/100 WBC (Bld) 0 % Normal 0-2 [facility] Comment on above: Performed By: #### P HO, BMPX, MG, CDP #### [address] [address] Chart Snatcher: Josef Rivera MD Eosinophils (Bld) [#/Vol] 0.24 10*3/uL Normal 0.00-0.44 [facility] Comment on above: Performed By: #### P HO, BMPX, MG, CDP #### [facility] [employer] [address] [place] [address]257 Chart Snatcher: Josef Rivera MD Eosinophils/100 WBC (Bld) 4 % Normal 1-4 [facility] Comment on above: Performed By: #### P HO, BMPX, MG, CDP #### [facility] [employer] [address] [place] [address] 25027 Chart Snatcher: Josef Rivera MD Erythrocyte distribution width (RBC) [Ratio] 13.1 % Normal 11.8-14.4 [facility] Comment on above: Performed By: #### P HO, BMPX, MG, CDP #### [facility] [employer] [address] [place] [address]221 Chart Snatcher: Josef Rivera MD Hematocrit (Bld) [Volume fraction] 35.8 % Low 36.3-47.1 [facility] Comment on above: Performed By: #### P HO, BMPX, MG, CDP #### [facility] [address] [place] [address]051 Chart Snatcher: Josef Rivera MD Hemoglobin (Bld) [Mass/Vol] 11.2 g/dL Low 11.9-15.1 [facility] Comment on above: Performed By: #### P HO, BMPX, MG, CDP #### [facility] [employer] [address] [place] [address] 31789 Chart Snatcher: Josef Rivera MD Immature granulocytes/100 WBC (Bld) 0 % Normal 0 [facility] Comment on above: Performed By: #### P HO, BMPX, MG, CDP #### [facility] [employer] [address] [place] [address] 77987 Chart Snatcher: Josef Rivera MD Lymphocytes (Bld) [#/Vol] 1.43 10*3/uL Normal 1.10-3.70 [facility] Comment on above: Performed By: #### P HO, BMPX, MG, CDP #### [facility] [address] [place] [address]207 Chart Snatcher: Josef Rivera MD Lymphocytes/100 WBC (Bld) 25 % Normal 24-43 [facility] Comment on above: Performed By: #### P HO, BMPX, MG, CDP #### [facility] [address] [place] [address] 82020 Chart Snatcher: Josef Rivera MD MCH (RBC) [Entitic mass] 29.2 pg Normal 25.2-33.5 [facility] Comment on above: Performed By: #### P HO, BMPX, MG, CDP #### [facility] [employer] [address] [place] [address] 82771 Chart Snatcher: Josef Rivera MD MCHC (RBC) [Mass/Vol] 31.3 g/dL Normal 28.4-34.8 [facility] Comment on above: Performed By: #### P HO, BMPX, MG, CDP #### [facility] [address] [place] [address] 89914 Chart Snatcher: Josef Rivera MD MCV (RBC) [Entitic vol] 93.2 fL Normal 82.6-102.9 [facility] Comment on above: Performed By: #### P HO, BMPX, MG, CDP #### [facility] [employer] [address] [place] [address] Chart Snatcher: Josef Rivera MD Monocytes (Bld) [#/Vol] 0.39 10*3/uL Normal 0.10-1.20 [facility] Comment on above: Performed By: #### P HO, BMPX, MG, CDP #### [facility] [employer] [address] [place] [address]20 Chart Snatcher: Josef Rivera MD Monocytes/100 WBC (Bld) 7 % Normal 3-12 [facility] Comment on above: Performed By: #### P HO, BMPX, MG, CDP #### [facility] [employer] [address] [place] [address] 01121 Chart Snatcher: Josef Rivera MD Neutrophil (Seg) 63 % Normal 36-65 [facility] Comment on above: Performed By: #### P HO, BMPX, MG, CDP #### [facility] [employer] [address] [place] [address]37 Chart Snatcher: Josef Rivera MD NRBC Automated 0.0 per 100 WBC Normal 0.0 [facility] Comment on above: Performed By: #### P HO, BMPX, MG, CDP #### [facility] [address] [place] [address] 91964 Chart Snatcher: Josef Rivera MD Platelet mean volume (Bld) [Entitic vol] 9.2 fL Normal 8.1-13.5 [facility] Comment on above: Performed By: #### P HO, BMPX, MG, CDP #### [facility] [address] [place] [address]126 Chart Snatcher: Josef Rivera MD Platelets (Bld) [#/Vol] 318 10*3/uL Normal 138-453 [facility] Comment on above: Performed By: #### P HO, BMPX, MG, CDP #### [facility] [employer] [address] [place] [address] 34829 Chart Snatcher: Josef Rivera MD RBC (Bld) [#/Vol] 3.84 10*6/uL Low 3.95-5.11 [facility] Comment on above: Performed By: #### P HO, BMPX, MG, CDP #### [facility] [address] [place] [address] 72652 Chart Snatcher: Jsoef Rivera MD WBC (Bld) [#/Vol] 5.7 10*3/uL Normal 3.5-11.3 [facility] Comment on above: Performed By: #### P HO, BMPX, MG, CDP #### [facility] [address] [place] [address]121 Chart Snatcher: Josef Rivera MD Glucose,Whole Bloodon 2023 Glucose [Mass/Vol] 112 mg/dL High 65-105 [facility] Glucose [Mass/Vol] 114 mg/dL High 65-105 [facility] Glucose [Mass/Vol] 104 mg/dL Normal 65-105 [facility] Glucose [Mass/Vol] 106 mg/dL High 65-105 [facility] Magnesiumon 08-29-2024 Magnesium [Mass/Vol] 2.1 mg/dL 1.6 - 2 .6 mg/dL [facility] Magnesium [Mass/Vol] 2.1 mg/dL Normal 1.6-2.6 [facility] Comment on above: Performed By: #### P HO, BMPX, MG, CDP #### [facility] [address] [place], [place] [id number] Chart Snatcher: Josef Rivera MD No Panel Informationon 08-29 [facility] POC Glucose Fingerstickon Glucose [Mass/Vol] 112 mg/dL High 65 - 105 mg/dL [facility] Interpretation and review of laboratory results Abnormal [facility] Glucose [Mass/Vol] 114 mg/dL High 65 - 105 mg/dL [facility] Interpretation and review of laboratory results Abnormal [facility] Glucose [Mass/Vol] 104 mg/dL 65 - 105 mg/dL [facility] Interpretation and review of laboratory results Abnormal [facility] Phosphoruson 08-29-2024 Phosphate [Mass/Vol] 4.0 mg/dL 2.5 - 4 .5 mg/dL [facility] Phosphorus, Inorg.on 08-29- 024 Phosphorus, Inorg. 4.0 mg/dL Normal 2.5-4.5 [facility] Comment on above: Performed By: #### P HO, BMPX, MG, CDP #### [facility] [address] [place] [address] Chart Snatcher: Josef Rivera MD XR ABDOMEN (KUB) (SINGLE [...] likely within the antrum of the stomach. cardiac monitor leads overlie the upper abdomen. Iliac wings [...] likely in the antrum of the stomach. [facility] RIS CONSOLIDATED EXAMINATION: ONE SUPINE XRAY [...] likely within the antrum of the stomach. cardiac monitor leads overlie the upper abdomen. Iliac wings and pubic rami grossly unremarkable in appearance. [facility] Paco Richardson MD - [...] likely within the antrum of the stomach. cardiac monitor leads overlie the upper abdomen. Iliac wings and pubic rami grossly unremarkable in appearance. IMPRESSION: 1. Moderate gaseous distention of the rectal vault. Gas and stool in the rectal vault. 2. Mild stool burden. No abnormally dilated small bowel loops. 3. NG tube distal tip overlying the medial right upper quadrant likely in the antrum of the stomach. [facility] Radiology Study observation (narrative) [facility] Abdomen Single viewOrdere d By: Paco Richardson on 08-29-2024 [facility] Work Phone: CBC with Auto Differentialon 08-28-2024 Basophils (Bld) [#/Vol] [facility] Basophils/100 WBC (Bld) 0 % 0 - 2 % [facility] Eosinophils (Bld) [#/Vol] 0.05 10*3/uL [facility] Eosinophils/100 WBC (Bld) 1 % 1 - 4 % [facility] Erythrocyte distribution width (RBC) [Ratio] 13.1 % 11.8 - 14.4 % [facility] Hematocrit (Bld) [Volume fraction] 37.2 % 36.3 - 47.1 % [facility] Hemoglobin (Bld) [Mass/Vol] 11.9 g/dL 11.9 - 15.1 g/dL [facility] Immature granulocytes (Bld) [#/Vol] 0.03 10*3/uL [facility] Immature granulocytes/100 WBC (Bld) 0 % 0 [facility] Interpretation and review of laboratory results Abnormal [facility] Lymphocytes/100 WBC (Bld) 11 % Low 24 - 43 % [facility] Lymphocytes/100 WBC (Bld) 0.99 % Low [facility] MCH (RBC) [Entitic mass] 29.5 pg 25.2 - 33.5 pg [facility] MCHC (RBC) [Mass/Vol] 32.0 g/dL 28.4 - 34.8 g/dL [facility] MCV (RBC) [Entitic vol] 92.3 fL 82.6 - 102.9 fL [facility] Monocytes/100 WBC (Bld) 5 % 3 - 12 % [facility] Monocytes/100 WBC (Bld) 0.40 % [facility] Neutrophils/100 WBC (Bld) 83 % High 36 - 65 % [facility] Nucleated RBC/100 WBC (Bld) [Ratio] 0.0 % 0.0 per 100 WBC [facility] Platelet mean volume (Bld) [Entitic vol] 9.2 fL 8.1 - 13.5 fL [facility] Platelets (Bld) [#/Vol] 359 10*3/uL [facility] RBC (Bld) [#/Vol] 4.03 10*6/uL 3.95 - 5.1 1 m/uL [facility] Segmented neutrophils/100 WBC (Bld) 7.44 % [facility] WBC other (Bld) [#/Vol] 8.9 [facility] CBC with Diffon 08-28-2024 Abs. Basophil <0.03 Normal 0.00-0.20 [facility] Comment on above: Performed By: #### C P, CDP #### [facility] [id number] Chart Snatcher: Josef Rivera MD Abs.Imm.Granulocyte 0.03 k/uL Normal 0.00-0.30 [facility] Comment on above: Performed By: #### C P, CDP #### [facility] [place], [place] [id number] Chart Snatcher: Josef Rivera MD Abs.Neutrophil (Seg) 7.44 k/uL Normal 1.50-8.10 [facility] Comment on above: Performed By: #### C P, CDP #### [address] [address] Chart Snatcher: Josef Rivera MD Basophils/100 WBC (Bld) 0 % Normal 0-2 [facility] Comment on above: Performed By: #### C P, CDP #### [address] [address] Chart Snatcher: Josef Rivera MD Eosinophils (Bld) [#/Vol] 0.05 10*3/uL Normal 0.00-0.44 [facility] Comment on above: Performed By: #### C P, CDP #### [address] [address] Chart Snatcher: Josef Rivera MD Eosinophils/100 WBC (Bld) 1 % Normal 1-4 [facility] Comment on above: Performed By: #### C P, CDP #### [address] [address] Chart Snatcher: Josef Rivera MD Erythrocyte distribution width (RBC) [Ratio] 13.1 % Normal 11.8-14.4 [facility] Comment on above: Performed By: #### C P, CDP #### [address] [address] Chart Snatcher: Josef Rivera MD Hematocrit (Bld) [Volume fraction] 37.2 % Normal 36.3-47.1 [facility] Comment on above: Performed By: #### C P, CDP #### [address] [address] Chart Snatcher: Josef Rivera MD Hemoglobin (Bld) [Mass/Vol] 11.9 g/dL Normal 11.9-15.1 [facility] Comment on above: Performed By: #### C P, CDP #### [address] [address] Chart Snatcher: Josef Rivera MD Immature granulocytes/100 WBC (Bld) 0 % Normal 0 [facility] Comment on above: Performed By: #### C P, CDP #### [address] [address] Chart Snatcher: Josef Rivera MD Lymphocytes (Bld) [#/Vol] 0.99 10*3/uL Low 1.10-3.70 [facility] Comment on above: Performed By: #### C P, CDP #### [address] [address] Chart Snatcher: Josef Rivera MD Lymphocytes/100 WBC (Bld) 11 % Low 24-43 [facility] Comment on above: Performed By: #### C P, CDP #### [address] [address] Chart Snatcher: Josef Rivera MD MCH (RBC) [Entitic mass] 29.5 pg Normal 25.2-33.5 [facility] Comment on above: Performed By: #### C P, CDP #### [address] [address] Chart Snatcher: Josef Rivera MD MCHC (RBC) [Mass/Vol] 32.0 g/dL Normal 28.4-34.8 [facility] Comment on above: Performed By: #### C P, CDP #### [address] [address] Chart Snatcher: Josef Rivera MD MCV (RBC) [Entitic vol] 92.3 fL Normal 82.6-102.9 [facility] Comment on above: Performed By: #### C P, CDP #### [address] [address] Chart Snatcher: Josef Rivera MD Monocytes (Bld) [#/Vol] 0.40 10*3/uL Normal 0.10-1.20 [facility] Comment on above: Performed By: #### C P, CDP #### [address] [address] Chart Snatcher: Josef Rivera MD Monocytes/100 WBC (Bld) 5 % Normal 3-12 [facility] Comment on above: Performed By: #### C P, CDP #### [address] [address] Chart Snatcher: Josef Rivera MD Neutrophil (Seg) 83 % High 36-65 [facility] Comment on above: Performed By: #### C P, CDP #### [address] [address] Chart Snatcher: Josef Rivera MD NRBC Automated 0.0 per 100 WBC Normal 0.0 [facility] Comment on above: Performed By: #### C P, CDP #### [address] [address] Chart Snatcher: Josef Rivera MD Platelet mean volume (Bld) [Entitic vol] 9.2 fL Normal 8.1-13.5 [facility] Comment on above: Performed By: #### C P, CDP #### [address] [address] Chart Snatcher: Josef Rivera MD Platelets (Bld) [#/Vol] 359 10*3/uL Normal 138-453 [facility] Comment on above: Performed By: #### C P, CDP #### [address] [address] Chart Snatcher: Josef Rivera MD RBC (Bld) [#/Vol] 4.03 10*6/uL Normal 3.95-5.11 [facility] Comment on above: Performed By: #### C P, CDP #### [facility] [employer] [address] [place] [address] Chart Snatcher: Josef Rivera MD WBC (Bld) [#/Vol] 8.9 10*3/uL Normal 3.5-11.3 [facility] Comment on above: Performed By: #### C P, CDP #### [facility] [employer] [address] [place] [address] Chart Snatcher: Josef Rivera MD Comp Metabolic Profon 2023 Albumin [Mass/Vol] 4.2 g/dL Normal 3.5-5.2 [facility] Comment on above: Performed By: #### P HO, BMPX, MG, CDP #### [facility] [employer] [address] [place] [address] Chart Snatcher: Josef Rivera MD Albumin/Glob Ratio 1.4 Normal 1.0-2.5 [facility] Comment on above: Performed By: #### P HO, BMPX, MG, CDP #### [facility] [employer] [address] [place] [address] Chart Snatcher: Josef Rivera MD Alkaline Phos 162 U/L High 35-104 [facility] Comment on above: Performed By: #### P HO, BMPX, MG, CDP #### [facility] [employer] [address] [place] [address] Chart Snatcher: Josef Rivera MD ALT [Catalytic activity/Vol] 14 U/L Normal 10-35 [facility] Comment on above: Performed By: #### P HO, BMPX, MG, CDP #### [facility] [employer] [address] [place] [address] Chart Snatcher: Josef Rivera MD Anion gap [Moles/Vol] 11 mmol/L Normal 9-16 [facility] Comment on above: Performed By: #### P HO, BMPX, MG, CDP #### [facility] [address] [place] [address] Chart Snatcher: Josef Rivera MD AST [Catalytic activity/Vol] 23 U/L Normal 10-35 [facility] Comment on above: Performed By: #### P HO, BMPX, MG, CDP #### [facility] [address] [place] [address] Chart Snatcher: Josef Rivera MD Bilirubin [Mass/Vol] 0.2 mg/dL Normal 0.0-1.2 [facility] Comment on above: Performed By: #### P HO, BMPX, MG, CDP #### [facility] [employer] [address] [place] [address] Chart Snatcher: Josef Rivera MD Calcium [Mass/Vol] 9.4 mg/dL Normal 8.6-10.4 [facility] Comment on above: Performed By: #### P HO, BMPX, MG, CDP #### [facility] [employer] [address] [place] [address] Chart Snatcher: Josef Rivera MD Chloride [Moles/Vol] 104 mmol/L Normal 98-107 [facility] Comment on above: Performed By: #### P HO, BMPX, MG, CDP #### [facility] [employer] [address] [place] [address] Chart Snatcher: Josef Rivera MD CO2 [Moles/Vol] 23 mmol/L Normal 20-31 [facility] Comment on above: Performed By: #### P HO, BMPX, MG, CDP #### [facility] [employer] [address] [place] [address] Chart Snatcher: Josef Rivera MD Creatinine [Mass/Vol] 0.7 mg/dL Normal 0.6-0.9 [facility] Comment on above: Performed By: #### P HO, BMPX, MG, CDP #### [facility] [employer] [address] [place] [address] [id number] Chart Snatcher: Josef Rivera MD GFR/1.73 sq M.predicted among [...] #### P HO, BMPX, MG, CDP #### [address] [address] Chart Snatcher: Josef Rivera MD Glucose [Mass/Vol] 115 mg/dL High 74-99 [facility] Comment on above: Performed By: #### P HO, BMPX, MG, CDP #### [facility] [employer] [address] [place] [address] Chart Snatcher: Josef Rivera MD Potassium [Moles/Vol] 4.3 mmol/L Normal 3.7-5.3 [facility] Comment on above: Performed By: #### P HO, BMPX, MG, CDP #### [facility] [employer] [address] [place] [address] Chart Snatcher: Josef Rivera MD Protein [Mass/Vol] 7.1 g/dL Normal 6.6-8.7 [facility] Comment on above: Performed By: #### P HO, BMPX, MG, CDP #### [facility] [address] [place] [address] Chart Snatcher: Josef Rivera MD Sodium [Moles/Vol] 138 mmol/L Normal 136-145 [facility] Comment on above: Performed By: #### P HO, BMPX, MG, CDP #### [facility] [address] [place], [place] [phone] Chart Snatcher: Josef Rivera MD Urea nitrogen [Mass/Vol] 9 mg/dL Normal 6-20 [facility] Comment on above: Performed By: #### P HO, BMPX, MG, CDP #### [facility] [address] [place], [place] [id number] Chart Snatcher: Josef Rivera MD [facility] 08-28-2024 Albumin [Mass/Vol] 4.2 g/dL 3.5 - 5.2 g/dL [facility] Albumin/Globulin [Mass ratio] 1.4 {ratio} 1.0 - 2.5 [facility] ALP [Catalytic activity/Vol] 162 U/L High 35 - 104 U/L [facility] ALT [Catalytic activity/Vol] 14 U/L 10 - 35 U/L [facility] Anion gap [Moles/Vol] 11 mmol/L 9 - 16 mmol/L [facility] AST [Catalytic activity/Vol] 23 U/L 10 - 35 U/L [facility] Bilirubin [Mass/Vol] 0.2 mg/dL 0.0 - 1 .2 mg/dL [facility] Calcium [Mass/Vol] 9.4 mg/dL 8.6 - 10. 4 mg/dL [facility] Chloride [Moles/Vol] 104 mmol/L 98 - 10 7 mmol/L [facility] CO2 [Moles/Vol] 23 mmol/L 20 - 31 mmol/L [facility] Creatinine [Mass/Vol] 0.7 mg/dL 0.6 - 0.9 mg/dL [facility] Est, Glom Filt Rate - PINF [facility] Comment on above: These results are [...] 115 mg/dL High 74 - 99 mg/dL [facility] Interpretation and review of laboratory results Abnormal [facility] Potassium [Moles/Vol] 4.3 mmol/L 3.7 - 5.3 mmol/L [facility] Protein [Mass/Vol] 7.1 g/dL 6.6 - 8.7 g/dL [facility] Sodium [Moles/Vol] 138 mmol/L 136 - 145 mmol/L [facility] Urea nitrogen [Mass/Vol] 9 mg/dL 6 - 20 mg/dL [facility] Glucose,Whole Bloodon 2023 Glucose [Mass/Vol] 100 mg/dL Normal 65-105 [facility] Lactic Acidon 08-28-2024 Lactic Acid, Whole Blood 1.2 mmol/L 0.7 - 2.1 mmol/L [facility] Lactic Acid,Whole Bl 1.2 mmol/L Normal 0.7-2.1 [facility] Comment on above: Performed By: #### P HO, BMPX, MG, CDP #### [facility] [address] [place] [address] Chart Snatcher: Josef Rivera MD Magnesiumon 08-28-2024 Magnesium [Mass/Vol] 2.1 mg/dL 1.6 - 2 .6 mg/dL [facility] Magnesium [Mass/Vol] 2.1 mg/dL Normal 1.6-2.6 [facility] Comment on above: Performed By: #### M G #### [facility] [address] [place], [place] [id number] Chart Snatcher: Josef Rivera MD POC Glucose Fingerstickon Glucose [Mass/Vol] 100 mg/dL 65 - 105 mg/dL [facility] XR ABDOMEN (KUB) (SINGLE AP VIEW)on 08-28-2024 [...] by: Rashaad Lopez MD 08/28/24 Final result [facility] XR Abdomen Single viewon 1. Nonobstructive marium wel gas pattern. 2. Mild left lower lobe infiltrate, which could represent pneumonia. [facility] RIS CONSOLIDATED EXAMINATION: ONE SUPINE XRAY [...] could represent pneumonia. Bony structures appear normal. [facility] RIS CONSOLIDATED Rashaad Lopez MD - [...] lower lobe infiltrate, which could represent pneumonia. [facility] Radiology Study observation (narrative) [facility] XR Abdomen Single viewOrdere d By: Rashaad Lopez on 08-28-2024 [facility] Work Phone: Glucose (Bld) [Mass/Vol]on 1 09-12-2023 Glucose Blood, POC 90 mg/dL [facility] - Hematology and Cell countson 07-13-2024 HbA1c (Bld) [Mass fraction] 5.6 % [facility] No Panel Informationon 07-13 Interpretation and review of laboratory results Normal [facility] Glucose (Bld) [Mass/Vol]Orde red By: Beverly Clemons on 06-20-2024 Glucose Blood, POC 101 mg/dL [facility] - Hematology and Cell countson 06-20-2024 HbA1c (Bld) [Mass fraction] 5.8 % [facility] No Panel InformationOrdered By: Beverly Clemons on 06-20-2024 [facility] Healthcare Office Visiton 05-14-2024 Follow-up visit [id number] Marly Cardoso 1970 F Date Provider Department Center 05/14/2024 12632-HYTYRIEDISON KINCAID MICHAEL [facility] Family History Problem Relation Age of Onset Heart attack Father Family Status - Relation Status Age at Father Level of Service:30193 [place] OFFICE/OUTPATIENT ESTABLISHED MOD MDM 30 MIN Reason for Visit and Comments: Hypertension [192515] - Patient here for 2 mo follow up. She was started on lisinopril 10mg daily at last visit. She presented to the ED last month for abdominal pain. EKG was done and showed bradycardia. Palpitations [597314] - Not as bad, still has them Shortness of Breath [532934] - Improving Normal [facility] [place] 05-11-2024 L Specimen: [id number] Received: 05/11/24 Status: XAVI Francis Num: [id number] Spec Type: Surgical Subm Dr: Jennie Ayon MD Tissues: A GASTRIC FOR HP (GASTRIC R/O H PYLORI) B Esophagus Biopsy (ESOPHAGUS BX R/O BARRETTS) Procedures: HE/4, Gross/Micro L4/2, H PYLORI Age/ Patient Sex Location Account Attending Physician Constantino Cardoso R 53/F [id number] Jennie Ayon MD SPEC NUM: [id number] RECD: 05/11/24 STATUS: XAVI FRANCIS NUM: [id number] HAYDEN: 05/11/[address]: Jennie Ayon MD ENTERED: 05/11/[address]: SPEC TYPE: Surgical DEPT: S ENTERED BY: [id number] RECV BY: [id number] ORDERED: HE/4, Gross/Micro L4/2, H PYLORI ORDERED: HE/4, Gross/Micro L4/2, H PYLORI Supplemental Report Addendum 2 Entered: 05/18/24 Supplemental to add CPT code of immunostain: A, CPT: 29433 Addendum Signed (signature on file) Robby Smyth MD 05/18/241707 Addendum 1 Entered: 05/18/24 Supplemental for findings of H. pylori immunostain: A, -H. pylori immunostain with appropriate control is negative for identified Helicobacter organism or infection Specimen: [id number] Received: 05/11/24 Status: XAVI Verduzcophil Num: [id number] Spec Type: Surgical Subm Dr: Jennie Ayon MD Tissues: A GASTRIC FOR HP (GASTRIC R/O H PYLORI) B Esophagus Biopsy (ESOPHAGUS BX R/O BARRETTS) Procedures: HE/4, Gross/Micro L4/2, H PYLORI Patient: Constantino Cardoso [id number] (Continued) Specimen: [id number] Received: 05/11/24 (Continued) Supplemental Report (Continued) Signed (signature on file) Robby Smyth MD 05/17/24 1326 Specimen: [id number] Received: 05/11/24 Status: XAVI Francis Num: [id number] Spec Type: Surgical Subm Dr: Jennie Ayon MD Tissues: A GASTRIC FOR HP (GASTRIC R/O H PYLORI) B Esophagus Biopsy (ESOPHAGUS BX R/O BARRETTS) Procedures: HE/4, Gross/Micro L4/2, H PYLORI Patient: Constantino Cardoso [id number] (Continued) Specimen: [id number] Received: 05/11/24-143 (Continued) Supplemental Report (Continued) Addendum Signed (signature [...] are performed supporting the above interpretation Specimen: [id number] Received: 05/11/24 Status: XAVI Francis Num: [id number] Spec Type: Surgical Subm Dr: Jennie Ayon MD Tissues: A GASTRIC FOR HP (GASTRIC R/O H PYLORI) B Esophagus Biopsy (ESOPHAGUS BX R/O BARRETTS) Procedures: HE/4, Gross/Micro L4/2, H PYLORI Patient: Marly Cardosorobles Hairston [id number] (Continued) Specimen: [id number] Received: 05/11/24 (Continued) Signed (signature on file) Robby Smyth MD 05/17/24 1326 Specimen: [id number] Madeleine (more content not included)... Normal The Counts Include [address] [facility] Reminderson 04-09-2024 Reminders Reminders From: Ain Jackson To: EU - Administrative; Sent: 02/16/2024 09:54:18 EDT Show up: 03/05/2024 09:54:00 EDT Subject: Ambulatory Reminder Due Date/Time: 05/20/2024 09:54:00 EDT Reminder/Recall Patient needs scheduled for a 3 month f/u with [facility] in [place], due back mid May. LVM FOR PATIENT TO CALL AND SCHEDULE APPT Pt called back and scheduled appt. Normal [facility] Office Visiton 03-19-2024 Follow-up visit [id number] Marly Cardoso 1970 F Date Provider Department Center 03/19/2024 33510-APBALHEDISON KINCAID MICHAEL [facility] Family History Problem Relation Age of Onset Heart attack Father Family Status - Relation Status Age at Father Level of Service:43984 [place] OFFICE/OUTPATIENT ESTABLISHED MOD MDM [address] [facility] Coding Summary.on 02-25-2024 Coding Summary. XJTLQojh38VEt8tOd+PG hlYWQ +UQ6KAOSuO18tlMJxbB0vL9GO TElOSywgQVBQTElOSyIgbmFtZ F3hyLLeFGMk IC8+OS4oIBUrLcfvlLMqd8R8l AN5F48mfz1rWSrjpNM8IJEeFk Bnxkrxh3gbhLc6JFekFkauGcF t ZOMpeM51VIN3tK73Pq04fJRho LNtn4pgxJm6HkIwEVDhYEY7tL iwBTvcp9PnKWLdY74siWKsw4H 6 XWQfcTdfhLXrNjJsaKV3gJ8sB Ihxpzrvm0bdrbrzOym1ww55fD Vfx8Y6fRC3L7AjwmW9LASbkEE g KhuhcFMWdU9ibywjk7xubwkbS kPbXGEjTIa7CVs9DWBmaWnsAw NhMC95WNZ9IKFhqzWeD1NoTBX s sRfmCdS3u9S2Zt4XE2HDKqjjH 1VNTUFSWTwvdGQ+OT23yy21Z3 OxMnhzOuj7LJGnMCK8dSA7eK5 n PAIzIMfmd1P0sYD5A0EcgsZay h3pa5fjSAEcZYrpF94qsDRal3 S5EHQhoFD7KIPomYxrCrDqaG1 3 Oyc+NCThlWuzb5YxEnypu1ees 2gbeSg5TxcfSDDsciYxvQueKS L3q0WkTp9sYHIaoYT3fAY0wD3 i QbVpVwQ8APisH983MxGtvUWeI rpgK39iN3DxyZS+OTHhWhs3VU SykMdhLR8uR1SfSUDjuxkkvMR m iHhqFB8xUMEyfxjcKVDlcQ9pQ VWeR5m1RgFgNlX9OIjlT9SiQV XrfyurSr23aN7cNtAeKtK7ILy u J6CnbnO7XCCraAPcIXhtFSI2E 57ot5V7LRWaOTSlSMZ2oUB7pX 1hbGlnbjogbGVmdDsgdmVydGl j PVxtDVwqB032RSAupGrqKmOqW GluZyBEYXRlOiAgMDYvMjIvMj AyNDwvdGQ+HSVpOHM4aGjiWXZ n yEIqNDnjTp2ntHoftYsxNM2xN LEiphomFMFccY9iWAQenEKidW mlOI9uXTExsctuc233HtSjARQ 0 VLAlgSDiL4CbbA7xYuNpAEBhY HErR1YjdUBwAYaiA165LPrrSy M2GBXrdrJxK5UlGMQewPgcLuY 0 v3U3Rx5Il8TghmkxV6HryFJeT sDdSblhBIr5C4FhVxlczTW+PC 24KDSzEB69AQe5NGX7tVqhDWx i JZZeK0XwqJ6dNeEfICNjRSPxU yc+PHRhYmxlIHdpZHRoPScxMD BhIgIvwMmtSJ9wWg1uXOEcLQD v mQvadUAhUyZes1epQPKvRJcmF E3ysMedP6OpaEE0BMCyw7e9Gt 41D45kX2RkkGZ+TRYwzRX0oGZ 0 eH7bIyHzRbZ3WApvV729EoJnz TOaRczsm7pkk4ahnVq5XqZ7YG CtfkVgrCetIJL7c5KcHr34T12 s IHdpZHRoPSIxNSUiIHZhbGlnb f9vuL5fHi8+BYXxsQC1uGB0hN 7xBkMiUxG0LKbwE456LsFtlUS v Oeprr9wyc3tbuGx5PcVbHORwr nYkkEqwLPZ5i7AeZd36P9HvdL lsd7GnHjv1ir49vGBzh5G2uUF 9 A2YaBBZsqpbmyLAshKraQE0gI BStthoyTJGlgM0jNGIuZ7l0Gn ZnCkK7OPtiQ8BgigM0ILVedUM g XOOrpCZHwE1ofpfqf5ypantcV aEpEJWuDJc5NBe3JZBnhVusNi QsEZN4OeU6ZEG9tIVjwI3ofCn n vcjimV5wQmm+KPV9nKUrcTEBE M9mVaqscAT+ZNCuJYN5kQrsIN iwESXmyH4fBRQlQ5j8OlLqFbT 1 QLtmI2TjwsP9VGVqpTDkURJcz WRQpL2fircka3diuopbCoBaHM BaBQp2JNh6XAJczEymBuZnLWP 0 VgE8LSM2rPGfiF0beNqwcrapg G9wOyc+YyqatBwiSEZ6ZEs5J8 OpLxp8ADKzrSmpTK0grUQvDZh u Zt1jxFvjcXcdPU9gCWRjyowxl 276HbObw0yuTMTxtKOhJBhyIF Q3C67lb5T5VFFwFKAhOCG6kQA 4 eO0maOdbkgxspKWrbUgxpqDhc JoyFVxlNOgwX420VPFlpSqgRy QqAEi0K2FiQif2OLTiyVytXW9 n fUKiQBqbAx6ffLauuBxxLP0mY DPnpcvfu474RrIre2xvPYYbaQ OrKIcuZPR3E63pn5G4KQJoGIW w FAN4oWI3rY0vmLmgmkanxRInz YmjzgUrrAhgAAobLYgzY971GV JyhIcjHoAwcGl6E1YdRoc9EPK z uSgxUY9jdZGqBJjlWp9eaRflb QbzKW9xCNAznfpik863UhIit2 xdKSYpdITlDKdpUWO7E45ei1T 6 RLItQILqNLY2jOQ3fO1nmUvup jogbGVmdDsgdmVydGljYWwtYW kfQ303POTgoWyvDbNvkHbnucF g HJswAKo4S0MbHmjtxFS+PC90Y THoLB04aYAdfEKyd4wfeYc8Kg KfCYKcWHG7eGegVWpbf3YgEAL t Q80ljEUmw7F7EQBkmGrcqZRgH nLipPQ6qD0uCCosbddwm5dvpg nbUepsy7kitw98zF03T73zJQt p YPEgVYKiBAWbHFEnkAhwfx6mo G9wIi8+SKXmoCX9hCL9kH6iKM JlZkU8QUuzH154AlKwkFUfHxl j w3wze1lbsQl0XeD9WZSfrrEgu HnwRBY6d7IbRr70Y11tOIjgBS JjOBTrZGDuDLIckOaabd2vyE0 w Ii8+XLImiXD0lYE2cG5zMuEjB fI1BVngM913SxTblNQlWpseB0 5jP7SsuPV+AWLrOne9IVBkrSd s BL9mgKIdENmwMp9dNHZ6QmHkD kEfJTamW1SsHQEeligaiuhaoQ A2AZWyRPBiiI11Ev5orWeiXDW w jCUMoS6gwjpnj8tzdgmfRpTbR GSeNJh7DTt1OVWzzPdvZuTkOU S4WmI5DMW4kRBbuR5clVhrxlh g tA6oT9RoZGDyqtahRb68jK6hS sOmMnH9XStrKld+X5UIVDwyLY FAAHzFKA0FLGEJIN74UK98fVO g w7W9hQB0T8SxCEBlodbelcrdk IS7ZNSjLKGdtY95eZBpKUfmVp 6fg5H2d438ROLmSTWbdF09Mx9 u tBbnAUFxqOSQlX2amjusy9kmd cobAnZeQIUvEZu6OEb4ZQJoxY huXuIzRZI3KrP3YQE7qNMdpS1 h qPxdmhmspX4bHnq+MDkvMjMvM Qj3UKiwbBE+PWEaOZE7mZiyHN caDLTmwO1mSWHsH8u5OdElIfM 1 HYuhU1MoUNKnhzgtEi97aD6hN jQfTuS5IYfxG0MkrbR4MSLwiK MzUTemPEC7I22vq1E0LMAjCVW w GVO1cJH3eX1daNedgrinaXPpt RjfelBvyTogCCprKXnlU719GG DlaZilMoFmQSkrNDKhZB70BC1 8 eZMac9U2zTD8E1LmFFYaoiacw obomOB8UEEvNWCrwC40cDAgII liNt9ni1P6p423RIYgQNEuwJ7 7 Ml1fgWvjDFKysAQGwI4krtlcp 3bwnnbzJxTnMCSlIUe2BLt2XF VwvMqnBrTlFYE1KeX7QTB9hFB h wT4ocQlkwwvnzR8rIzx+RmVtY JfqJJ45GO94oGKjr3P6wMJ7H9 XyKFMfyaezqjlsvOM7QUDgVGX w uX60jLWuLSpxZj5uh3R8j995Y MSbRUPhrJ61Bi4efXqyROGebX KUaA4nzsefy0ohjksaNgEmXOK w KRr3JPg8QIVkkPhzPmFyGIN2H nD3LYR3mIGqcF2zsLqojwqwvX 9wOyc+WRPoWMXxt1Pbg5KaJB3 0 JK52M7JnUuquwMGmiTG+PHRhY mxlIHdpZHRoPScxMDAlJyBzdH huNX8pTp5yKEGrBXRtwItqwBQ l NcUrz5vrCDFfMEltFK3pgOelG 1NzbQX3VLCrp4i7Tj93P26zW9 JvdXA+FYJtiTP4sEF4jL9zMkR l ZgQ2HLfeN601VsDejGMaHexhn 9uij5nviTs2TtIpORNkfvUoiA baUZE6i2LbVm04Y85wRWveJEO o YBUbIGFqHUXxhPlqgi1erV9zT i8+TMGmaAF2iRA2wK3dEmQjVv L9IZcyS421VvTvtWKkGryyY21 s B0ZmhDH+YPHxZoj0XZUltDvrU E5pyQLeNAynHs9dTFW5KiPqUh AnHWtvR6GxIAIglhofaujlhDR 6 PFXxDSEhqN59Yr4wgZpdKm4lG UGwIXP0SAUafDChL9IsbE8mSi IaMTMdDEMfG4KofZNlBLeiG49 6 WPncYbB9MTStqmDvO4NzTBUkq UwzRbC0v1B0Sj0XyFmcdZWsLR 2tPkKnJId4W6MdFfq3ULRxmSm s KH5msIPuCAhhDh7jkFygoFwaM Q3rTEQyrcpdk663IvHjh5qvGF BhrXKsBCkgFOC5X22an0Y8FMQ w ZXGnBHR6vIR5eH2yaPsblbjhw GVmdDsgdmVydGljYWwtYWxpZ2 37QMCsrXnsWoEUTxy6R8PvKtw 0 EETuhNniCV7ksPIdHZviLn4di RqbzXixHU7aXXJgghqjh632Wx Lti5zhUEAdoCZdBCbmGDJ1G57 s w9M6QBSwHEHcOSO5dMG9xQ3xu GlnbjogbGVmdDsgdmVydGljYW nbGZbtA001IYEpxXfwQp4UAaw 8 M0WxHfv8AIXcgYuzZR9xeABaQ TbeLs1voUwjvOmmBW8cVOSqnb aqh525JhKmf2xlTRGmfRMxMSw t JPG7U77cg9Y5ESLhVDMuMAM8q WH3rH0jwLsyzubbiHJuyIkhbh PklDkzTTvuIWncB012TIOetPn n PlBheWVyOjwvdGQ+UH06xv94C 2QxAlkwBgl5SANiMRT8yXD6qL 7vLIOtKLsaz3X9bQB7N3PwqwB l iw1ev7zhBOTfG (more content not included)... Normal [facility] Patient Educationon 02-21-20 24 Patient Education Obstetrics [...] this condition includes: ? Antibiotic medicine. ? Ticf-miw-vqjgqnp medicines to treat discomfort. ? Drinking enough [...] these instructions at home: Medicines ? Take tubk-brp-ahkfxdb and prescription medicines only as told by [...] Document Revie (more content not included)... Normal [facility] Urology Office/Clinic Noteon 02-21-2024 Urology Office/Clinic Note Chief Complaint Recurrent UTI's HPI Staff Former DLS Pt is here for recurrent UTI's Last [...] with voice recognition artificial intelligence software, specifically [employer], [employer] and or [employer]. Substitutions may have occurred due to the [...] yes avoids baths/hot tubs yes avoids scented [employer] products yes urinates after sexual activity yes [...] 8% of patients. (more content not included)... [facility] Comment on above: Result Comment: Elec [...] Locations R1: This test was performed at: [facility], [address] [place] [address], [id number]- , , [facility] Comment on above: Performed By: #### 2 [id number] #### [facility] [address] [place] [address] Lab Reportson 02-17-2024 Lab Reports [id number]#1.00TIFF [facility] RAD - Ultrasound Reporton RAD - Ultrasound Report [id number]#1.00TIFF Normal [facility] Screenson 02-17-2024 Screens [id number]#1.00TIFF Normal [facility] URINALYSISOrdered By: SYSTEM SYSTEM on 02-16-2024 [...] that meet specific criteria set forth by [facility]. Epithelial cells.squamous Auto (Urine sed) [...] Desc Clean Catch (02/16/24 10:01 AM) Normal [facility] UA Auto SS Urinalysis with Microon 02-03 Bilirubin Ql (U) Negative Normal Negative [facility] Comment on above: Performed By: #### 4 [id number] #### [facility] [address] [place] [address] Clarity (U) Clear Normal Clear [facility] Comment on above: Performed By: #### 4 [id number] #### [facility] [address] [place] [address] Color (U) Light-Yellow Normal Yellow [facility] Comment on above: Result Comment: Micr oscopic readings are only performed on those samples that meet specific criteria set forth by [facility]. Performed By: #### 4 [id number] #### [facility] [address] [place] [address] Epithelial cells.squamous Auto (Urine sed) [#/Area] 0-2 Invalid Interpretation Code [facility] Comment on above: Performed By: #### 4 [id number] #### [facility] [address] [place] [address] Glucose Ql (U) Negative Normal Negative [facility] Comment on above: Performed By: #### 4 [id number] #### [facility] [address] [place] [address] Hemoglobin Auto test strip (U) [Mass/Vol] 1+ mg/dL Abnormal Negative [facility] Comment on above: Performed By: #### 4 [id number] #### [facility] [address] [place] [address] Ketones Auto test strip Ql (U) Negative Normal Negative [facility] Comment on above: Performed By: #### 4 [id number] #### [facility] [address] [place] [address] Leukocyte esterase Auto test strip Ql (U) 75 Morgan/uL Abnormal Negative [facility] Comment on above: Performed By: #### 4 [id number] #### [facility] [address] [place] [address] Mucus Auto Ql (U) Trace Normal Negative [facility] Comment on above: Performed By: #### 4 [id number] #### [facility] [address] [place] [address] Nitrite Auto test strip Ql (U) Negative Normal Negative [facility] [facility] Comment on above: Performed By: #### 4 [id number] #### [facility] [address] [place] [address] pH (U) 5.5 [pH] Invalid Interpretation Code 5.0-9.0 [facility] Comment on above: Performed By: #### 4 [id number] #### [facility] [address] [place] [address] Protein Ql (U) Negative Normal Negative [facility] Comment on above: Performed By: #### 4 [id number] #### [facility] [address] [place] [address] RBC Ql (U) 0-3 Normal 0-3 [facility] Comment on above: Performed By: #### 4 [id number] #### [facility] [address] [place] [address] Specific gravity (U) [Rel density] 1.021 Invalid Interpretation Code 1.005-1.030 [facility] Comment on above: Performed By: #### 4 [id number] #### [facility] [address] [place] [address] Urobilinogen (U) [Mass/Vol] Negative Normal Negative [facility] Comment on above: Performed By: #### 4 [id number] #### [facility] [address] [place] [address]11 WBC Auto (Urine sed) [#/Area] 0-5 Normal 0-5 [facility] Comment on above: Performed By: #### 4 [id number] #### [facility] [address] [place] [address] Type of Urine collection method Clean Catch Normal [facility] Comment on above: Performed By: #### 4 [id number] #### [facility] [address] [place] [address] Office Visiton 02-15-2024 Follow-up visit [id number] Marly Cardoso 1970 F Date Provider Department Center 02/15/2024 63894-N[place]GEDISON K[facility] C[facility] Family History Problem Relation Age of Onset Heart attack Father Family Status - Relation Status Age at Father Level of Service:12346 [place] OFFICE/OUTPATIENT NEW MODERATE MDM [address] [facility] ANES POSTPROC EVALon 023 ANES POSTPROC EVAL HNO ID: [id number] Author: Carlota Jeffrey MD Service: ? Author Type: Anesthesiologist Type: Anesthesia Postprocedure Evaluation Filed: 08/25/2023 5:35 PM Note Text: POST ANESTHESIA EVALUATION NOTE : 1970 Procedure Summary Date: 08/25/23 Room / Location: Gastroenterology Anesthesia Start: 1444 Anesthesia Stop: 1552 Procedure: EGD - THERAPEUTIC, EUS, OR TUBE INTERVENTIONS Diagnosis: Gastroparesis (OTHER) Scheduled Providers: Marques Bradley MD; Carlota Jeffrey MD; Vanessa Mcmillan APRN.GLASS BLOWER Responsible Provider: Carlota Jeffrey MD Anesthesia Type: [...] August 25, 2023 TIME: 5:35 PM CSN: [id number] Normal [facility] ANES PRE-OPon 08-25-2023 ANES PRE-OP HNO ID: [id number] Author: Carlota Jeffrey MD Service: ? Author [...] August 25, 2023 TIME: 11:46 AM CSN: [id number] Normal [facility] HISTORY PHYSICALon 3 HISTORY PHYSICAL HNO ID: [id number] Author: Gavi Bourgeois MD Service: General Surgery [...] August 25, 2023 TIME: 6:57 AM Normal [facility] NURSING PROGon 08-25-2023 NURSING PROG HNO ID: [id number] Author: Melody Walter, RN Service: Nursing Author [...] None Electronically Signed By: Melody Walter RN [facility] NURSING PROG HNO ID: [id number] Author: Pamela Osuna RN Service: ? Author [...] By: Pamela Navarro RN In Department: GASTROENTEROLOGY [facility] Magda 07-22-2023 CNPN Telephone (GENBMI) ----- CONSTANTINO CARDOSO ([id number]) 1970 F Date Time Provider Department 07/22/23 [...] Encounter Status:Closed by EVELYN BLACK on 07/22/23 [facility] ANES POSTPROC EVALon 023 ANES POSTPROC EVAL HNO ID: [id number] Author: Sly Carter MD Service: ? Author [...] Scheduled Providers: Marques Bradley MD; Amanda Bernard APRN.GLASS BLOWER; Sly Carter MD Responsible Provider: Sly Carter [...] July 14, 2023 TIME: 12:26 PM CSN: [id number] Normal [facility] ANES PRE-OPon 07-14-2023 ANES PRE-OP HNO ID: [id number] Author: Sly Carter MD Service: ? Author Type: Anesthesiologist Type: Anesthesia Preprocedure Evaluation Filed: 07/14/2023 9:19 AM Note Text: ANESTHESIOLOGY DAY OF SURGERY NOTE : 1970 Procedure Information Date/Time: 07/14/23929 Scheduled providers: Marques Bradley MD; Amanda Bernard APRN.GLASS BLOWER; Sly Carter MD Procedure: EGD - THERAPEUTIC, [...] July 14, 2023 TIME: 9:11 AM CSN: [id number] Normal [facility] EGD - THERAPEUTIC, EUS, OR T UBE INTERVENTIONSon 07-14-2023 [facility] HISTORY PHYSICALon HISTORY PHYSICAL HNO ID: [id number] Author: Raúl Quintero MD Service: General Surgery [...] medications for this visit. REVIEW OF SYSTEMS: ZUMBA INSTRUCTOR: Negative for CVA, Negative for TIA Respiratory: [...] DATE: July 14, 2023 TIME: 9:40 AM [facility] NURSING PROGon 07-14-2023 NURSING PROG HNO ID: [id number] Author: Mónica Spaulding RN Service: Nursing Author Type: Registered Nurse Type: Nursing Progress Note Filed: 07/14/2023 11:21 AM Note Text: 1121: Dr. Mehrdad Carter paged : Patient Constantino Cardoso in post bed 10: Complaining of 06/14 abdominal pain (gas), mild nausea. Any further orders? Thanks! Mari Spaulding RN BSN [facility] NURSING PROG HNO ID: [id number] Author: Mónica Spaulding RN Service: Nursing Author [...] Electronically Signed By: Mónica Spaulding RN BSN [facility] NURSING PROG HNO ID: [id number] Author: Candace Jaramillo RN Service: ? Author [...] Candace Jaramillo RN In Department: GASTROENTEROLOGY Normal [facility] SURGICAL PATHOLOGYon 023 ADDENDUM 1: Normal [facility] Comment on above: Order Comment: Speci men Type: TISSUE SPECIMENOrdering Facility: [facility] Address: [address] [place] [address] Result Comment: Give n the background of chronic gastritis a Helicobacter pylori immunostain was performed on block A and is negative for Helicobacter pylori organisms. AEB 07/20/2023 Laboratory Developed Test (LDT) Disclaimer: Performance characteristics of immunohistochemical, immunofluorescent and chromogenic in-situ hybridization tests have been determined by the performing laboratory within [facility]???s [facility] Pathology and Laboratory Medicine [place] ([facility], [facility], [facility], [facility], [facility], [facility], or [facility]) in a manner consistent with CLIA requirements. One or more of these tests have not been cleared or approved by the FDA. [facility] is regulated under CLIA as qualified to perform high-complexity testing. These tests are used for clinical purposes. They should not be regarded as investigational or for research. Positive and negative controls stain appropriately. Addendum electronically signed by Pepper Zacarias MD on 07/20/2023 at 9:30 AM Performed By: #### S ####[facility] LABCLIA [id number] [facility] [id number], [place] [address] [place] CASE REPORT Normal [facility] Comment on above: Order Comment: Speci men Type: TISSUE SPECIMENOrdering Facility: [facility] Address: [address] [place] [address] Result Comment: Surg ica Pathology Report Case: [id number] Authorizing Provider: Marques Bradley MD Collected: 07/14/2023 10:42 AM Ordering Location: Gastroenterology Received: 07/14/2023 07:34 PM Pathologist: Pepper Zacarias MD Specimen: STOMACH BIOPSY, R/O H.Pylori Performed By: #### S ####[facility] LABCLIA [id number] [address] [place] DIAGNOSIS COMMENT Immunohistochemical stain for Helicobacter pylori is pending and will be reported as an addendum. Normal [facility] Comment on above: Order Comment: Speci men Type: TISSUE SPECIMENOrdering Facility: [facility] Address: [address] [place] [address] Performed By: #### S ####[facility] LABCLIA [id number] [address] [place] FINAL DIAGNOSIS Normal [facility] Comment on above: Order Comment: Speci men Type: TISSUE SPECIMENOrdering Facility: [facility] Address: [address] [place] [address] Result Comment: Velma james, biopsy: - Chronic inactive gastritis. See comment. AEB/dkclementina 07/18/2023 Performed By: #### S ####[facility] LABIA [id number] [address] FINAL PERFORMING LAB Normal [facility] Comment on above: Order Comment: Speci men Type: TISSUE SPECIMENOrdering Facility: [facility] Address: [address] [place] [address] Result Comment: Diag nostic interpretation performed at [facility], [address] [place] [address] CLIA# [id number] [employer] Crewmember: Maurisio Ritchie M.D. Performed By: #### S ####[facility] LABIA [id number] [address] [place] GROSS DESCRIPTION Normal [facility] Comment on above: Order Comment: Speci men Type: TISSUE SPECIMENOrdering Facility: [facility] Address: [address] [place] [address] Result Comment: [place]. Maria C JAMES BIOPSY Received in formalin are two pieces of hager, soft tissue aggregating to 0.5 x 0.2 x 0.2 cm. Totally submitted in one cassette. Two Gross examination performed at [facility], [address] [place] [id number] KK July 14, 2023 11:10 PM Performed By: #### S ####[facility] LABCLIA [id number] [id number] [id number] [facility] CNPNon 05-27-2023 CNPN Telephone (GENBMI) ----- CONSTANTINO CARDOSO ([id number]) 1970 F Date Time Provider Department 05/27/23 [facility], we [...] Status:Closed by EVELYN BLACK on 05/27/23 Normal [facility] NM GASTRIC EMPTYING SOLIDon 05-26-2023 NM [...] OF GASTRIC EMPTYING OF SOLID MEAL. Credit Review Analyst: PSCB Transcribe Date/Time: May 26 2023 11:18A Dictated by : SILVANO WELSH MD This examination was interpreted and the report reviewed and electronically signed by: SILVANO WELSH MD on May 26 2023 11:18AM EST [id number] [facility] CNNURSEon 05-25-2023 CNNURSE Nurse Visit (GASTMN) ----- CONSTANTINO CARDOSO ([id number]) 1970 F Date Time Provider Department 05/25/23 8:30 AM NURSE GI LAB 2 GASTMN During your visit today, we recorded the following information about you: Pedro Gonzalez LPN 05/25/2023 4:15 PM Signed Name: Constantino Cardoso CCF#: [id number] Date: 05/25/2023 ESOPHAGEAL MANOMETRY TEST Indication: Nausea [...] .Pedro Gonzalez LPN Referring Provider: MARQUES BRADLEY [[id number]] Allergies As of Date: 05/25/2023 Noted Allergy Reaction FLEXERIL (CYCLOBENZAPRINE) 04/28/2018 7 - Swelling PENICILLIN 04/28/2018 7 - Swelling Date Reviewed: 05/06/2023 Reviewed by: Judy Michaels MA - Fully Assessed Reason for Visit: Procedure [88] Cmt: Manometry Esophageal Visit Diagnosis:Nausea [R11.0] Order(s):MANOMETRY ESOPHAGEAL [67785MTF] Order #: [id number] Prescriptions as of 05/25/2023 - dicyclomine (BENTYL) [...] (FLAGYL) 500 mg tablet - pantoprazole DR TiptonPROTONIX) 40 mg tablet - promethazine (PHENERGAN) 25 mg tablet Problem List As Of Date 05/25/2023 Noted Resolved Hiatal hernia [K44.9] 04/28/2018 Morbid obesity (HCC) [E66.01] 04/28/2018 Encounter Status:Closed by PEDRO GONZALEZ on 05/25/23 Normal [facility] Magda 05-16-2023 CNPN Telephone (GENBMI) ----- CONSTANTINO CARDOSO ([id number]) 1970 F Date Time Provider Department 05/16/23 EVELYN BLACK GENI During your visit today, [...] Encounter Status:Closed by EVELYN BLACK on 05/16/23 [facility] CNOVon 05-06-2023 CNOV Office Visit (GENBMI ) ----- CONSTANTINO CARDOSO ([id number]) 1970 F Date Time Provider Department 05/06/23 [...] for internal providers or letter via the [employer] Service for external providers. Chief Complaint: [...] Time: 8:15 AM Referring Provider: IMER CHERRY [[id number]] Allergies As of Date: 05/06/2023 Noted Allergy Reaction (more content not included)... [facility] CONSTANTINO CARDOSO ([id number]) 1970 F Date Time Provider Department 05/02/23 EVELYN BLACK During your visit today, we recorded the following information about you: Evelyn Black RN 05/04/2023 1:55 PM Addendum BMI SPECIALTY CARE COORDINATION TELEPHONE ENCOUNTER Chief complaint AND duration dysphagia. Type of procedure: hernia repair hiatal with Dr. MORTENSEN in [place] February of 2019. Sending OP notes Nursing assessment (subjective/objective) . pain in chest area and getting worse, hard to breathe c/o nausea and oral intolerance, using miralax for BM Went to [facility] March 2023 who told her she needed a stent in her heart..but her c/o were difficulty swallowing and sent pt home and referred her to [facility] and was admitted for almost a [...] HHR a year later @ OSH in [place] Recommendation: appt after records obtained, encouraged small [...] Encounter Status:Closed by EVELYN BLACK on 05/02/23 Normal [facility] Magda 04-26-2023 CNPN Telephone ([facility]) ----- CONSTANTINO CARDOSO ([id number]) 1970 F Date Time Provider Department 04/26/23 [...] Encounter Status:Closed by EVELYN BLACK on 04/26/23 [facility] Magda 04-18-2023 CNPN Telephone (GENBMI) ----- CONSTANTINO CARDOSO ([id number]) 1970 F Date Time Provider Department 04/18/23 [...] Ma - Fully Assessed 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 [3602] Prescriptions as of [...] Encounter Status:Closed by EVELYN BLACK on 04/18/23 [facility] 04-07-2023 CNPN Telephone (GASTSP) ----- CONSTANTINO CARDOSO ([id number]) 1970 F Date Time Provider Department 04/07/23 GUILLERMO MARTINEZ [facility] During your visit today, we recorded [...] Status:Closed by YANCY LOPEZ on 04/07/23 Normal [facility] Alanine aminotransferase [En zymatic activity/volume] in Serum or PlasmaOrdered By: Pete Thakkar on 03-23-2023 ALT [Catalytic activity/Vol] 11 U/L 7-52 [facility] Albumin [Mass/volume] in Ser um or Plasma by Bromocresol green (BCG) dye binding methoOrdered By: Pete Thakkar on 03-23-2023 Albumin BCG dye [Mass/Vol] 4.1 g/dL 3.5-5.7 [facility] Alkaline phosphatase [Enzyma tic activity/volume] in Serum or PlasmaOrdered By: Pete Thakkar on 03-23-2023 ALP [Catalytic activity/Vol] 115 U/L 34-104 [facility] Aspartate aminotransferase [ Enzymatic activity/volume] in Serum or PlasmaOrdered By: Pete Thakkar on 03-23-2023 AST [Catalytic activity/Vol] 15 U/L 13-39 [facility] Automated erythrocytes count in urine sediment (number/area)Ordered By: Pete Thakkar on 03-23-2023 RBC Auto (Urine sed) [#/Area] 0-1 [HPF] 0-4 [facility] Automated leukocytes count i n urine sediment (number/area)Ordered By: Pete Thakkar on 03-23-2023 WBC Auto (Urine sed) [#/Area] 0-1 [HPF] 0-4 [facility] Basophils Auto (Bld) [#/Vol] Ordered By: Pete Thakkar on 03-23-2023 Basophils (Bld) [#/Vol] 0.1 10*3/uL 0.0-0.2 [facility] Basophils/100 WBC Auto (Bld) Ordered By: Pete Thakkar on 03-23-2023 Basophils/100 WBC (Bld) 1.0 % . [facility] Bilirubin Test strip Ql (U)O rdered By: Pete Thakkar on 03-23-2023 Bilirubin Ql (U) Negative Negative [facility] Bilirubin.direct [Mass/volum e] in Serum or PlasmaOrdered By: Pete Thakkar on 03-23-2023 Bilirubin.direct [Mass/Vol] 0.10 mg/dL 0.03-0.18 [facility] Bilirubin.total [Mass/volume ] in Serum or PlasmaOrdered By: Pete Thakkar on 03-23-2023 Bilirubin [Mass/Vol] 0.3 mg/dL 0.3-1.0 [facility] Calcium [Mass/volume] in Ser um or PlasmaOrdered By: Pete Thakkar on 03-23-2023 Calcium [Mass/Vol] 9.0 mg/dL 8.6-10.3 [facility] Carbon dioxide, total [Moles /volume] in Serum or PlasmaOrdered By: Pete Thakkar on 03-23-2023 CO2 [Moles/Vol] 24.5 mmol/L 21.0-31.0 [facility] Chloride [Moles/volume] in S cristine or PlasmaOrdered By: Pete Thakkar on 03-23-2023 Chloride [Moles/Vol] 111 mmol/L 98-107 [facility] Color Auto (U)Ordered By: Shoaib Thakkar on 03-23-2023 Color (U) Yellow Yellow [facility] Creatinine [Mass/volume] in Serum or PlasmaOrdered By: Pete Thakkar on 03-23-2023 Creatinine [Mass/Vol] 0.72 mg/dL 0.60-1.20 [facility] Eosinophils Auto (Bld) [#/Vo l]Ordered By: Pete Thakkar on 03-23-2023 Eosinophils (Bld) [#/Vol] 0.3 10*3/uL 0.0-0.45 [facility] Eosinophils/100 WBC Auto (Bl d)Ordered By: Pete Thakkar on 03-23-2023 Eosinophils/100 WBC (Bld) 5.0 % . [facility] Erythrocyte distribution wid th Auto (RBC) [Ratio]Ordered By: Pete Thakkar on 03-23-2023 Erythrocyte distribution width (RBC) [Ratio] 13.6 % 11.9-15.3 [facility] Globulin Calc (S) [Mass/Vol] Ordered By: Pete Thakkar on 03-23-2023 Globulin (S) [Mass/Vol] 2.9 g/dL [facility] Glucose [Mass/volume] in Ser um or PlasmaOrdered By: Pete Thakkar on 03-23-2023 Glucose [Mass/Vol] 79 mg/dL 70-100 [facility] Comment on above: ADA recommended refe rence rangeRandom Glucose Reference Range is dependent on time and content of last meal. Glucose of more than 200 mg/dL in a nonstressed, ambulatory subject supports the diagnosis of Diabetes Mellitus. Hematocrit Auto (Bld) [Volum e fraction]Ordered By: Pete Thakkar on 03-23-2023 Hematocrit (Bld) [Volume fraction] 35.7 % 34.0-46.4 [facility] Hemoglobin [Mass/volume] in BloodOrdered By: Pete Thakkar on 03-23-2023 Hemoglobin (Bld) [Mass/Vol] 12.0 g/dL 11.8-15.4 [facility] Ketones Auto test strip (U) [Mass/Vol]Ordered By: Pete Thakkar on 03-23-2023 Ketones (U) [Mass/Vol] Negative Negative [facility] Laboratory - UrinalysisOrder ed By: Pete Thakkar on 03-23-2023 Hyaline casts LM Ql (Urine sed) None seen [LPF] 0-8 [facility] Leukocytes [#/volume] correc jun for nucleated erythrocytes in Blood by Automated counOrdered By: Pete Thakkar on 03-23-2023 WBC corrected for nucl RBC Auto (Bld) [#/Vol] 6.3 10*3/uL 3.8-11.6 [facility] Lipase [Enzymatic activity/v olume] in Serum or PlasmaOrdered By: Pete Thakkar on 03-23-2023 Lipase [Catalytic activity/Vol] 32.0 U/L 11.0-82.0 [facility] Lymphocytes Auto (Bld) [#/Vo l]Ordered By: Pete Thakkar on 03-23-2023 Lymphocytes (Bld) [#/Vol] 2.3 10*3/uL 1.00-4.8 [facility] Lymphocytes/100 WBC Auto (Bl d)Ordered By: Pete Thakkar on 03-23-2023 Lymphocytes/100 WBC (Bld) 36.1 % . [facility] MCH Auto (RBC) [Entitic mass ]Ordered By: Pete Thakkar on 03-23-2023 MCH (RBC) [Entitic mass] 29.2 pg 24.7-34.3 [facility] MCHC Auto (RBC) [Mass/Vol]Or dered By: Pete Thakkar on 03-23-2023 MCHC (RBC) [Mass/Vol] 33.7 g/dL 32.0-35.0 [facility] MCV Auto (RBC) [Entitic vol] Ordered By: Pete Thakkar on 03-23-2023 MCV (RBC) [Entitic vol] 86.7 fL 80-100 [facility] Monocyte distribution width [Entitic volume] in Blood by AutomatedOrdered By: Pete Thakkar on 03-23-2023 Monocyte distribution width Auto (Bld) [Entitic vol] 16.44 % 0.00-20.00 [facility] Monocytes Auto (Bld) [#/Vol] Ordered By: Pete Thakkar on 03-23-2023 Monocytes (Bld) [#/Vol] 0.5 10*3/uL 0.0-0.8 [facility] Monocytes/100 WBC Auto (Bld) Ordered By: Pete Thakkar on 03-23-2023 Monocytes/100 WBC (Bld) 7.7 % . [facility] Neutrophils Auto (Bld) [#/Vo l]Ordered By: Pete Thakkar on 03-23-2023 Neutrophils (Bld) [#/Vol] 3.2 10*3/uL 1.8-7.7 [facility] Neutrophils/100 WBC Auto (Bl d)Ordered By: Pete Thakkar on 03-23-2023 Neutrophils/100 WBC (Bld) 50.2 % . [facility] Nitrite Test strip Ql (U)Ord ered By: Pete Thakkar on 03-23-2023 Nitrite Ql (U) Negative Negative [facility] No Panel InformationOrdered By: Pete Thakkar on 03-23-2023 Estimated GFR (CKD-EPI) > 60.0 mL/Min [facility] Creatinine Clearance (Chem 105.27 [facility] Nucleated erythrocytes [Pres ence] in Blood by Automated countOrdered By: Pete Thakkar on 03-23-2023 Nucleated RBC Auto Ql (Bld) 0.1 /100{WBC} 0-0.5 [facility] Platelet mean volume Auto (B ld) [Entitic vol]Ordered By: Pete Thakkar on 03-23-2023 Platelet mean volume (Bld) [Entitic vol] 7.6 fL 6.3-10.7 [facility] Platelets Auto (Bld) [#/Vol] Ordered By: Pete Thakkar on 03-23-2023 Platelets (Bld) [#/Vol] 357 10*3/uL 150-450 [facility] Potassium [Moles/volume] in Serum or PlasmaOrdered By: Pete Thakkar on 03-23-2023 Potassium [Moles/Vol] 3.6 mmol/L 3.5-5.1 [facility] Protein Auto test strip (U) [Mass/Vol]Ordered By: Pete Thakkar on 03-23-2023 Protein (U) [Mass/Vol] Negative Negative [facility] Protein [Mass/volume] in Ser um or PlasmaOrdered By: Pete Thakkar on 03-23-2023 Protein [Mass/Vol] 7.0 g/dL 6.4-8.9 [facility] RBC Auto (Bld) [#/Vol]Ordere d By: Pete Thakkar on 03-23-2023 RBC (Bld) [#/Vol] 4.12 10*6/uL 3.60-5.00 [facility] Serum or plasma albumin/glob ulin mass ratioOrdered By: Pete Thakkar on 03-23-2023 Albumin/Globulin [Mass ratio] 1.4 {ratio} [facility] Serum or plasma anion gap de terminationOrdered By: Pete Thakkar on 03-23-2023 Anion gap [Moles/Vol] 10.1 mmol/L 6.0-15.0 [facility] Serum or plasma non-glucuron idated bilirubin measurement (mass/volume)Ordered By: Pete Thakkar on 03-23-2023 Bilirubin.indirect [Mass/Vol] 0.2 mg/dL [facility] Sodium [Moles/volume] in Ser um or PlasmaOrdered By: Pete Thakkar on 03-23-2023 Sodium [Moles/Vol] 142 mmol/L 136-145 [facility] Specific gravity Auto test s trip (U) [Rel density]Ordered By: Pete Thakkar on 03-23-2023 Specific gravity (U) [Rel density] 1.048 1.001-1.030 [facility] Squamous epithelial cells de tection in urine sediment by light microscopyOrdered By: Pete Thakkar 03-23-2023 Epithelial cells.squamous LM Ql (Urine sed) None seen [HPF] 0-2 [facility] Troponin I.cardiac [Mass/vol ume] in Serum or Plasma by Detection limit <= 0.01 ng/Ordered By: Pete Thakkar on 03-23-2023 Troponin I.cardiac DL <= 0.01 ng/mL [Mass/Vol] 12.2 pg/mL 0.0-15.0 [facility] Urea nitrogen [Mass/volume] in Serum or PlasmaOrdered By: Pete Thakkar 03-23-2023 Urea nitrogen [Mass/Vol] 24 mg/dL 7-25 [facility] [facility] [place] Urine bacteria detection by automated methodOrdered By: Pete Thakkar 03-23-2023 Bacteria Auto Ql (U) 1+ None Seen [facility] Urine clarity by refractomet ry automatedOrdered By: Pete Thakkar 03-23-2023 Clarity Refractometry automated (U) Clear Clear [facility] Urine glucose measurement by automated test strip (mass/volume)Ordered By: Pete Thakkar on 03-23-2023 Glucose Auto test strip (U) [Mass/Vol] Normal mg/dL Normal [facility] Urine hemoglobin detection b y automated test stripOrdered By: Pete Thakkar on 03-23-2023 Hemoglobin Auto test strip Ql (U) Trace Negative [facility] Urine leukocyte esterase det ection by automated test stripOrdered By: Pete Thakkar on 03-23-2023 Leukocyte esterase Auto test strip Ql (U) Negative Negative [facility] Urobilinogen Auto test strip (U) [Mass/Vol]Ordered By: Pete Thakkar on 03-23-2023 Urobilinogen (U) [Mass/Vol] Normal mg/dL Normal [facility] WBC Auto (Bld) [#/Vol]Ordere d By: Pete Thakkar on 03-23-2023 WBC (Bld) [#/Vol] 6.3 10*3/uL 3.8-11.6 [facility] pH Auto test strip (U)Ordere d By: Pete Thakkar on 03-23-2023 pH (U) 5.0 [pH] 5.0-9.0 [facility] Activated partial thrombopla stin time (aPTT) in platelet poor plasma by coagulation aOrdered By: Conner Griffith on 02-15-2023 aPTT Coag (PPP) [Time] 37.0 s 25.1-36.5 [facility] Alanine aminotransferase [En zymatic activity/volume] in Serum or PlasmaOrdered By: Conner Griffith on 02-15-2023 ALT [Catalytic activity/Vol] 13 U/L 7-52 [facility] Albumin [Mass/volume] in Ser um or Plasma by Bromocresol green (BCG) dye binding methoOrdered By: Conner Griffith on 02-15-2023 Albumin BCG dye [Mass/Vol] 4.3 g/dL 3.5-5.7 [facility] Alkaline phosphatase [Enzyma tic activity/volume] in Serum or PlasmaOrdered By: Conner Griffith on 02-15-2023 ALP [Catalytic activity/Vol] 124 U/L 34-104 [facility] Aspartate aminotransferase [ Enzymatic activity/volume] in Serum or PlasmaOrdered By: Conner Griffith on 02-15-2023 AST [Catalytic activity/Vol] 15 U/L 13-39 [facility] Basophils Auto (Bld) [#/Vol] Ordered By: Conner Griffith on 02-15-2023 Basophils (Bld) [#/Vol] 0.0 10*3/uL 0.0-0.2 [facility] Basophils/100 WBC Auto (Bld) Ordered By: Conner Griffith on 02-15-2023 Basophils/100 WBC (Bld) 0.6 % . [facility] Bilirubin.direct [Mass/volum e] in Serum or PlasmaOrdered By: Conner Griffith on 02-15-2023 Bilirubin.direct [Mass/Vol] 0.00 mg/dL 0.03-0.18 [facility] Comment on above: If the DBIL is less than 0.1, IBIL is not able to becalculated. Bilirubin.total [Mass/volume ] in Serum or PlasmaOrdered By: Conner Griffith on 02-15-2023 Bilirubin [Mass/Vol] 0.4 mg/dL 0.3-1.0 [facility] Calcium [Mass/volume] in Ser um or PlasmaOrdered By: Conner Griffith on 02-15-2023 Calcium [Mass/Vol] 9.3 mg/dL 8.6-10.3 [facility] Carbon dioxide, total [Moles /volume] in Serum or PlasmaOrdered By: Conner Griffith on 02-15-2023 CO2 [Moles/Vol] 25.3 mmol/L 21.0-31.0 [facility] Chloride [Moles/volume] in S cristine or PlasmaOrdered By: Conner Griffith on 02-15-2023 Chloride [Moles/Vol] 106 mmol/L 98-107 [facility] Creatinine [Mass/volume] in Serum or PlasmaOrdered By: Conner Griffith on 02-15-2023 Creatinine [Mass/Vol] 0.77 mg/dL 0.60-1.20 [facility] Eosinophils Auto (Bld) [#/Vo l]Ordered By: Conner Griffith on 02-15-2023 Eosinophils (Bld) [#/Vol] 0.2 10*3/uL 0.0-0.45 [facility] Eosinophils/100 WBC Auto (Bl d)Ordered By: Conner Griffith on 02-15-2023 Eosinophils/100 WBC (Bld) 4.0 % . [facility] Erythrocyte distribution wid th Auto (RBC) [Ratio]Ordered By: Conner Griffith on 02-15-2023 Erythrocyte distribution width (RBC) [Ratio] 13.5 % 11.9-15.3 [facility] Globulin Calc (S) [Mass/Vol] Ordered By: Conner Griffith on 02-15-2023 Globulin (S) [Mass/Vol] 3.0 g/dL [facility] Glucose [Mass/volume] in Ser um or PlasmaOrdered By: Conner Griffith on 02-15-2023 Glucose [Mass/Vol] 94 mg/dL 70-100 [facility] Comment on above: ADA recommended refe rence rangeRandom Glucose Reference Range is dependent on time and content of last meal. Glucose of more than 200 mg/dL in a nonstressed, ambulatory subject supports the diagnosis of Diabetes Mellitus. Hematocrit Auto (Bld) [Volum e fraction]Ordered By: Conner Griffith on 02-15-2023 Hematocrit (Bld) [Volume fraction] 38.4 % 34.0-46.4 [facility] Hemoglobin [Mass/volume] in BloodOrdered By: Conner Griffith on 02-15-2023 Hemoglobin (Bld) [Mass/Vol] 13.0 g/dL 11.8-15.4 [facility] Laboratory - CoagulationOrde red By: Conner Griffith on 02-15-2023 PT Coag (PPP) [Time] 11.7 s 9.0-12.9 [facility] Leukocytes [#/volume] correc jun for nucleated erythrocytes in Blood by Automated counOrdered By: Conner Griffith on 02-15-2023 WBC corrected for nucl RBC Auto (Bld) [#/Vol] 5.2 10*3/uL 3.8-11.6 [facility] Lipase [Enzymatic activity/v olume] in Serum or PlasmaOrdered By: Conner Griffith on 02-15-2023 Lipase [Catalytic activity/Vol] 19.0 U/L 11.0-82.0 [facility] Lymphocytes Auto (Bld) [#/Vo l]Ordered By: Conner Griffith on 02-15-2023 Lymphocytes (Bld) [#/Vol] 1.8 10*3/uL 1.00-4.8 [facility] Lymphocytes/100 WBC Auto (Bl d)Ordered By: Conner Griffith on 02-15-2023 Lymphocytes/100 WBC (Bld) 33.8 % . [facility] MCH Auto (RBC) [Entitic mass ]Ordered By: Conner Griffith on 02-15-2023 MCH (RBC) [Entitic mass] 29.4 pg 24.7-34.3 [facility] MCHC Auto (RBC) [Mass/Vol]Or dered By: Conner Griffith on 02-15-2023 MCHC (RBC) [Mass/Vol] 33.8 g/dL 32.0-35.0 [facility] MCV Auto (RBC) [Entitic vol] Ordered By: Conner Griffith on 02-15-2023 MCV (RBC) [Entitic vol] 86.8 fL 80-100 [facility] Monocyte distribution width [Entitic volume] in Blood by AutomatedOrdered By: Conner Griffith on 02-15-2023 Monocyte distribution width Auto (Bld) [Entitic vol] 18.21 % 0.00-20.00 [facility] Monocytes Auto (Bld) [#/Vol] Ordered By: Conner Griffith on 02-15-2023 Monocytes (Bld) [#/Vol] 0.3 10*3/uL 0.0-0.8 [facility] Monocytes/100 WBC Auto (Bld) Ordered By: Conner Griffith on 02-15-2023 Monocytes/100 WBC (Bld) 4.8 % . [facility] Neutrophils Auto (Bld) [#/Vo l]Ordered By: Conner Griffith on 02-15-2023 Neutrophils (Bld) [#/Vol] 3.0 10*3/uL 1.8-7.7 [facility] Neutrophils/100 WBC Auto (Bl d)Ordered By: Conner Griffith on 02-15-2023 Neutrophils/100 WBC (Bld) 56.8 % . [facility] No Panel InformationOrdered By: Conner Griffith on 02-15-2023 Estimated GFR (CKD-EPI) > 60.0 mL/Min [facility] Creatinine Clearance (Chem 98.01 [facility] Nucleated erythrocytes [Pres ence] in Blood by Automated countOrdered By: Conner Griffith on 02-15-2023 Nucleated RBC Auto Ql (Bld) 0.2 /100{WBC} 0-0.5 [facility] Platelet mean volume Auto (B ld) [Entitic vol]Ordered By: Conner Griffith on 02-15-2023 Platelet mean volume (Bld) [Entitic vol] 7.3 fL 6.3-10.7 [facility] Platelet poor plasma interna tional normalized ratio (INR) by coagulation assay (relatOrdered By: Conner Griffith on 02-15-2023 INR Coag (PPP) [Relative time] 1.0 {INR} [facility] Comment on above: INR Therapeutic Rang e [...] 10*3/uL 150-450 [facility] Potassium [Moles/volume] in Serum or PlasmaOrdered By: Conner Griffith on 02-15-2023 Potassium [Moles/Vol] 3.9 mmol/L 3.5-5.1 [facility] Protein [Mass/volume] in Ser um or PlasmaOrdered By: Conner Griffith on 02-15-2023 Protein [Mass/Vol] 7.3 g/dL 6.4-8.9 [facility] RBC Auto (Bld) [#/Vol]Ordere d By: Conner Griffith on 02-15-2023 RBC (Bld) [#/Vol] 4.43 10*6/uL 3.60-5.00 [facility] Serum or plasma albumin/glob ulin mass ratioOrdered By: Conner Griffith on 02-15-2023 Albumin/Globulin [Mass ratio] 1.4 {ratio} [facility] Serum or plasma anion gap de terminationOrdered By: Conner Griffith on 02-15-2023 Anion gap [Moles/Vol] 12.6 mmol/L 6.0-15.0 [facility] Serum or plasma non-glucuron idated bilirubin measurement (mass/volume)Ordered By: Conner Griffith on 02-15-2023 Bilirubin.indirect [Mass/Vol] 0.4 mg/dL [facility] Sodium [Moles/volume] in Ser um or PlasmaOrdered By: Conner Griffith on 02-15-2023 Sodium [Moles/Vol] 140 mmol/L 136-145 [facility] Urea nitrogen [Mass/volume] in Serum or PlasmaOrdered By: Conner Griffith on 02-15-2023 Urea nitrogen [Mass/Vol] 14 mg/dL 7-25 [facility] WBC Auto (Bld) [#/Vol]Ordere d By: Conner Griffith on 02-15-2023 WBC (Bld) [#/Vol] 5.2 10*3/uL 3.8-11.6 [facility] MG MAMM SCREEN 3D MACARIO CADon 11-30-2022 MG MAMM SCREEN 3D MACARIO CAD Normal [facility] ER URINE PROFILEon 3 Bilirubin Ql (U) Negative Normal NEGATIVE [facility] Comment on above: Performed By: #### E RUR ####[facility] [address] [place] [address]Dr. Tadeo Smyth Clarity (U) CLEAR Normal CLEAR [facility] Comment on above: Performed By: #### E RUR ####[facility] [address] [place] [address]Dr. Tadeo Smyth Color (U) YELLOW Normal YELLOW [facility] Comment on above: Performed By: #### E RUR ####[facility] [address] [place], [place] [address]Dr. Tadeo Smyth ERUAHD A micrscopic examina tion will be performed if indicated. Normal [facility] Comment on above: Performed By: #### E RUR ####[facility] T[address]is[address] [place], [place] [address]Dr. Tadeo Smyth Glucose Ql (U) Negative Normal NEGATIVE [facility] Comment on above: Performed By: #### E RUR ####[facility] [address] [place], [place] [address]Dr. Tadeo Smyth Hemoglobin Ql (U) TRACE-INTACT Abnormal NEGATIVE [facility] Comment on above: Performed By: #### E RUR ####[facility] X[address] [place], [place] [address]Dr. Tadeo Smyth Ketones Ql (U) Negative Normal NEGATIVE [facility] Comment on above: Performed By: #### E RUR ####[facility] [address] [place], [place] [address]Dr. Tadeo Smyth LEUKOCYTES Negative Normal NEGATIVE [facility] Comment on above: Performed By: #### E RUR ####[facility] K[address] [place], [place] [address]Dr. Tadeo Smyth Nitrite Ql (U) Negative Normal NEGATIVE [facility] Comment on above: Performed By: #### E RUR ####[facility] X[address] [place], [place] [address]Dr. Tadeo Smyth pH (U) 6.0 [pH] Normal 5-9 [facility] Comment on above: Performed By: #### E RUR ####[facility] [address] [place], [place] [address]Dr. Tadeo Smyth SPEC GRAVITY >=1.030 Abnormal 1.005-<=1.0 25 [facility] Comment on above: Performed By: #### E RUR ####[facility] [address] [place], [place] [address]Dr. Tadeo Smyth UA PROTEIN Negative Normal NEGATIVE/ TRACE [facility] Comment on above: Performed By: #### E RUR ####[facility] [address] [place] [address]Dr. Tadeo Smyth UR MICRO IND NOT INDICATED Normal [facility] Comment on above: Performed By: #### E RUR ####[facility] [address] [place] [address]Dr. Tadeo Smyth Urobilinogen Qn (U) 0.2 {Benito'U}/dL Normal 0.2 - 1. 0 [facility] Comment on above: Performed By: #### E RUR ####[facility] [address] [place] [address]Dr. Tadeo Haja XR ABD FLAT UP_PA Kasey 11-28 XR ABD FLAT UP_PA CH Normal [facility] AMYLASEon 11-27-2022 Amylase [Catalytic activity/Vol] 63 U/L Normal 25-115 [facility] Comment on above: Performed By: #### L IPA, VIJI, CMP ####[facility] Mb[address]its[address] [place], [place] [address]Dr. Tadeo Haja CBC AUTO DIFFon 11-27-2022 BASO # 0.0 103/ul Normal 0.0-0.1 [facility] Comment on above: Performed By: #### C BC ####[facility] [address] [place], [place] [address]Dr. Tadeo Smyth Basophils/100 WBC (Bld) 0.4 % Normal 0.2-2.0 [facility] Comment on above: Performed By: #### C BC ####[facility] [address] [place], [place] [address]Dr. Margotnicole Haja EO # 0.2 103/ul Normal 0.0-0.7 [facility] Comment on above: Performed By: #### C BC ####[facility] [address] [place], [place] [address]Dr. Tadeo Smyth Eosinophils/100 WBC (Bld) 2.8 % Normal 0.9-7.0 [facility] Comment on above: Performed By: #### C BC ####[facility] [address]fal[address] [place], [place] [address]Dr. Tadeo Smyth Erythrocyte distribution width (RBC) [Ratio] 13.2 % Normal 11.0-15.0 [facility] Comment on above: Performed By: #### C BC ####[facility] [address] [place] [address]Dr. Tadeo Smyth Hematocrit (Bld) [Volume fraction] 42.6 % Normal 36.0-48.0 [facility] Comment on above: Performed By: #### C BC ####[facility] [address] [place] [address]Dr. Tadeo Smyth Hemoglobin (Bld) [Mass/Vol] 13.6 g/dL Normal 12.0-16.0 [facility] Comment on above: Performed By: #### C BC ####[facility] [address] [place], [place] [address]Dr. Tadeo Smyth IG # 0.02 10e3/ul Normal 0.00-0.03 [facility] Comment on above: Performed By: #### C BC ####[facility] [address] [place], [place] [address]Dr. Tadeo Smyth IG % 0.3 % Normal 0.0-0.5 [facility] Comment on above: Performed By: #### C BC ####[facility] [address] [place], [place] [address]DrNeo Tadeo Smyth LYMPH # 2.2 103/ul Normal 1.2-3.8 [facility] Comment on above: Performed By: #### C BC ####[facility] [address] [place], [place] [address]DrNeo Tadeo Smyth Lymphocytes/100 WBC (Bld) 32.1 % Normal 20.5-60.0 [facility] Comment on above: Performed By: #### C BC ####[facility] [address]sp[address] [place], [place] [address]DrNeo Tadeo Smyth MANUAL DIFF REQ NO Normal [facility] Comment on above: Performed By: #### C BC ####[facility] [address] [place], [place] [address]DrNeo Tadeo Smyth MCH (RBC) [Entitic mass] 29.6 pg Normal 26.7-34.0 [facility] Comment on above: Performed By: #### C BC ####[facility] [address] [place] [address]Dr. Tadeo Smyth MCHC (RBC) [Mass/Vol] 31.9 g/dL Normal 29.9-35.2 [facility] Comment on above: Performed By: #### C BC ####[facility] [address] [place], [place] [address]Dr. Tadeo Smyth MCV (RBC) [Entitic vol] 92.6 fL Normal 81.0-99.0 [facility] Comment on above: Performed By: #### C BC ####[facility] [address] [place], [place] [address]DrNeo Smyth MONO # 0.2 103/ul Critically low 0.3-0.8 [facility] Comment on above: Performed By: #### C BC ####[facility] I[address]usi[address] [place], [place] [address]Dr. Tadeo Smyth Monocytes/100 WBC (Bld) 3.2 % Normal 1.7-12.0 [facility] Comment on above: Performed By: #### C BC ####[facility] R[address] [place], [place] [address]DrNeo Smyth NEUT # 4.2 103/ul Normal 1.4-6.5 [facility] Comment on above: Performed By: #### C BC ####[facility] [address]uy[address] [place], [place] [address]Dr. Tadeo Smyth Neutrophils/100 WBC (Bld) 61.2 % Normal 43.0-75.0 [facility] Comment on above: Performed By: #### C BC ####[facility] [address] [place], [place] [address]DrNeo Smyth Platelet mean volume (Bld) [Entitic vol] 9.0 fL Critically low 9.5-13.5 [facility] Comment on above: Performed By: #### C BC ####[facility] [address] [place], [place] [address]Dr. Tadeo Smyth PLT 392 103/ul Normal 150-450 [facility] Comment on above: Performed By: #### C BC ####[facility] [address] [place] [address]Dr. Tadeo Smyth RBC 4.60 106/ul Normal 4.20-5.40 [facility] Comment on above: Performed By: #### C BC ####[facility] [address] [place] [address]Dr. Tadeo Smyth WBC 6.9 103/ul Normal 4.0-11.0 [facility] Comment on above: Performed By: #### C BC ####[facility] [address] [place] [address]Dr. Margotnicole Smyth LIPASEon 11-27-2022 Lipase [Catalytic activity/Vol] 100.0 U/L Normal 73.0-393.0 [facility] Comment on above: Performed By: #### L VIJI HALL, CMP ####[facility] [address] [place] [address]Dr. Tadeo Smyth PROF 14(COMP METB)on 023 Albumin [Mass/Vol] 3.5 g/dL Normal 3.4-5.0 [facility] Comment on above: Performed By: #### L VIJI HALL, CMP ####[facility] [address] [place] [address]Dr. Tadeo Smyth Albumin/Globulin [Mass ratio] 0.9 {ratio} Normal [facility] Comment on above: Performed By: #### L VIJI HALL, CMP ####[facility] [address] [place] [address]Dr. Tadeo Smyth ALP [Catalytic activity/Vol] 166 U/L Critically high 46-116 [facility] Comment on above: Performed By: #### L VIJI HALL, CMP ####[facility] [address] [place] [address]Dr. Tadeo Smyth ALT [Catalytic activity/Vol] 25 U/L Normal 14-59 [facility] Comment on above: Performed By: #### L IPA, VIJI, CMP ####[facility] [address] [place] [address]Dr. Tadeo Smyth Anion gap [Moles/Vol] 12.4 mmol/L Normal [facility] Comment on above: Performed By: #### L IPA, VIJI, CMP ####[facility] [address] [place] [address]Dr. Tadeo Smyth AST [Catalytic activity/Vol] 18 U/L Normal 15-37 [facility] Comment on above: Performed By: #### L IPA, VIJI, CMP ####[facility] [address] [place] [address]Dr. Tadeo Smyth Bilirubin [Mass/Vol] 0.3 mg/dL Normal 0.2-1.0 [facility] Comment on above: Performed By: #### L IPA VIJI, CMP ####[facility] [address] [place], [place] [address]Dr. Tadeo Smyth Calcium [Mass/Vol] 9.1 mg/dL Normal 8.5-10.1 [facility] Comment on above: Performed By: #### L IPA VIJI, CMP ####[facility] [address] [place], [place] [address]Dr. Tadeo Smyth Chloride [Moles/Vol] 104 mmol/L Normal 98-107 [facility] Comment on above: Performed By: #### L IPA VIJI, CMP ####[facility] [address] [place], [place] [address]Dr. Tadeo Smyth CO2 [Moles/Vol] 25.0 mmol/L Normal 21.0-32.0 [facility] Comment on above: Performed By: #### L IPA, VIJI, CMP ####[facility] [address] [place], [place] [address]Dr. Tadeo Smyth Creatinine [Mass/Vol] 0.87 mg/dL Normal 0.55-1.02 [facility] Comment on above: Performed By: #### L IPA, VIJI, CMP ####[facility] [address] [place], [place] [address]Dr. Tadeo Smyth EGFR-AF LITHUANIAN >60 Normal >=60 [facility] Comment on above: Performed By: #### L VJII HALL, CMP ####[facility] [address] [place] [address]Dr. Tadeo Smyth EGFR-NON AF LITHUANIAN >60 Normal >=60 [facility] Comment on above: Performed By: #### L VIJI HALL, CMP ####[facility] [address] [place] [address]Dr. Tadeo Smyth Globulin (S) [Mass/Vol] 3.9 g/dL Normal [facility] Comment on above: Performed By: #### L VIJI HALL, CMP ####[facility] [address] [place] [address]Dr. Tadeo Smyth Glucose [Mass/Vol] 169 mg/dL Critically high 74-106 [facility] Comment on above: Performed By: #### L VIJI HALL, CMP ####[facility] [address] [place], [place] [address]Dr. Tadeo Smyth Potassium [Moles/Vol] 3.4 mmol/L Critically low 3.5-5.1 [facility] Comment on above: Performed By: #### L VIJI HALL, CMP ####[facility] [address]int[address] [place], [place] [address]Dr. Tadeo Smyth Protein [Mass/Vol] 7.4 g/dL Normal 6.4-8.2 [facility] Comment on above: Performed By: #### L VIJI HALL, CMP ####[facility] [address] [place], [place] [address]Dr. Tadeo Smyth Sodium [Moles/Vol] 138 mmol/L Normal 136-145 [facility] Comment on above: Performed By: #### L VIJI HALL, CMP ####[facility] [address]ky[address] [place], [place] [address]Dr. Tadeo Smyth Urea nitrogen [Mass/Vol] 23.0 mg/dL Critically high 7.0-18.0 [facility] Comment on above: Performed By: #### L VIJI HALL, CMP ####[facility] [address] [place], [place] [address]Dr. Margotnicole Smyth Urea nitrogen/Creatinine [Mass ratio] 26.4 mg/mg Normal [facility] Comment on above: Performed By: #### L IPA, VIJI, CMP ####[facility] [address] [place], [place] [address]Dr. Tadeo Haja AMYLASEon 11-02-2022 Amylase [Catalytic activity/Vol] 40 U/L Normal 25-115 [facility] Comment on above: Performed By: #### L IPA, MG, CMP, VIJI ####[facility] [address] [place], [place] [address]Dr. Margotnicole Smyth CBC AUTO DIFFon 11-02-2022 BASO # 0.0 103/ul Normal 0.0-0.1 [facility] Comment on above: Performed By: #### C BC ####[facility] [address] [place], [place] [address]Dr. Tadeo Smyth Basophils/100 WBC (Bld) 0.5 % Normal 0.2-2.0 [facility] Comment on above: Performed By: #### C BC ####[facility] [address] [place], [place] [address]Dr. Tadeo Smyth EO # 0.1 103/ul Normal 0.0-0.7 [facility] Comment on above: Performed By: #### C BC ####[facility] [address] [place], [place] [address]Dr. Tadeo Smyth Eosinophils/100 WBC (Bld) 2.8 % Normal 0.9-7.0 [facility] Comment on above: Performed By: #### C BC ####[facility] [address] [place], [place] [address]Dr. Tadeo Smyth Erythrocyte distribution width (RBC) [Ratio] 13.3 % Normal 11.0-15.0 [facility] [facility] Comment on above: Performed By: #### C BC ####[facility] Xdkbmtxjke[address] [place], [place] [address]Dr. Tadeo Smyth Hematocrit (Bld) [Volume fraction] 35.6 % Critically low 36.0-48.0 [facility] Comment on above: Performed By: #### C BC ####[facility] Xgidmpkqxo3772 [place] [id number]. Tadeo Smyth Hemoglobin (Bld) [Mass/Vol] 11.3 g/dL Critically low 12.0-16.0 [facility] Comment on above: Performed By: #### C BC ####[facility] Hhrnxdsfcq5459 [place] [id number]. Tadeo Smyth IG # 0.01 10e3/ul Normal 0.00-0.03 [facility] Comment on above: Performed By: #### C BC ####[facility] Jzfgjabppw0873 [place] [id number]. Tadeo Smyth IG % 0.2 % Normal 0.0-0.5 [facility] Comment on above: Performed By: #### C BC ####[facility] Varyrdbtet[address] [place] [address]Dr. Tadeo Haja LYMPH # 1.5 103/ul Normal 1.2-3.8 [facility] Comment on above: Performed By: #### C BC ####[facility] Wimjvqqgdg0617 [place] [id number]. Tadeo Smyth Lymphocytes/100 WBC (Bld) 34.9 % Normal 20.5-60.0 [facility] Comment on above: Performed By: #### C BC ####[facility] Wjexlshziz4345 [place] [id number]. Tadeo Smyth MANUAL DIFF REQ NO Normal [facility] Comment on above: Performed By: #### C BC ####[facility] Chgmfccptb8813 [place] [id number]. Tadeo Smyth MCH (RBC) [Entitic mass] 28.8 pg Normal 26.7-34.0 [facility] Comment on above: Performed By: #### C BC ####[facility] Tbbrtxehlb9943 [place] [id number]. Tadeo Smyth MCHC (RBC) [Mass/Vol] 31.7 g/dL Normal 29.9-35.2 [facility] Comment on above: Performed By: #### C BC ####[facility] Cgrvqkrcgq9553 [place] [id number]. Tadeo Smyth MCV (RBC) [Entitic vol] 90.8 fL Normal 81.0-99.0 [facility] Comment on above: Performed By: #### C BC ####[facility] Wkileqaqpg9785 [place] [address]Dr. Tadeo Smyth MONO # 0.3 103/ul Normal 0.3-0.8 [facility] Comment on above: Performed By: #### C BC ####[facility] Tjjezyvyhw4398 [place] [address]Dr. Tadeo Smyth Monocytes/100 WBC (Bld) 6.9 % Normal 1.7-12.0 [facility] Comment on above: Performed By: #### C BC ####[facility] E[address]lvxjwvw[address] [place], [place] [address]Dr. Tadeo Smyth NEUT # 2.4 103/ul Normal 1.4-6.5 [facility] Comment on above: Performed By: #### C BC ####[facility] Ojvogtshat3803 [place] [id number]. Tadeo Smyth Neutrophils/100 WBC (Bld) 54.7 % Normal 43.0-75.0 [facility] Comment on above: Performed By: #### C BC ####[facility] Vwzrwjbfjm6432 [place] [id number]. Tadeo Smyth Platelet mean volume (Bld) [Entitic vol] 8.9 fL Critically low 9.5-13.5 [facility] Comment on above: Performed By: #### C BC ####[facility] Cutwggvsuq9404 [place] [id number]. Tadeo Smyth PLT 316 103/ul Normal 150-450 [facility] Comment on above: Performed By: #### C BC ####[facility] Cumvdkaoja0606 [place] [phone]. Tadeo Smyth RBC 3.92 106/ul Critically low 4.20-5.40 [facility] Comment on above: Performed By: #### C BC ####[facility] Rbivirttys6346 [place] [address]Dr. Tadeo Smyth WBC 4.4 103/ul Normal 4.0-11.0 [facility] Comment on above: Performed By: #### C BC ####[facility] Uzoprsjmcw5261 [place] [address]Dr. Tadeo Smyth H PYLORI ANTIBODY IGGon 10-07 H. PYLORI IGG ABS 0.12 Index Value Normal 0.00-0.79 [facility] Comment on above: Result Comment: Nega tive <0.80 Equivocal 0.80 - 0.89 Positive >0.89 Performed By: #### H PYLLC ####[facility] Zdllsxbhlr5[address] [place], [place] [address]Dr. Tadeo Smyth LIPASEon 11-02-2022 Lipase [Catalytic activity/Vol] 58.0 U/L Critically low 73.0-393.0 [facility] Comment on above: Performed By: #### L IPA, MG, CMP, VIJI ####[facility] Zglcqgtqmz15[address] [place], [place] [address]Dr. Tadeo Smyth MAGNESIUMon 11-02-2022 Magnesium [Mass/Vol] 1.8 mg/dL Normal 1.8-2.4 [facility] Comment on above: Performed By: #### L IPA, MG, CMP, VIJI ####[facility] Uxiwaswdos475[address] [place], [place] [address]Dr. Tadeo Smyth PROF 14(COMP METB)on 023 Albumin [Mass/Vol] 3.2 g/dL Critically low 3.4-5.0 [facility] Comment on above: Performed By: #### L IPA, MG, CMP, VIJI ####[facility] Wlrarhriee4[address] [place], [place] [address]Dr. Tadeo Smyth Albumin/Globulin [Mass ratio] 1.0 {ratio} Normal [facility] Comment on above: Performed By: #### L IPA, MG, CMP, VIJI ####[facility] Wobypqyulq17[address] [place], [place] [address]Dr. Tadeo Smyth ALP [Catalytic activity/Vol] 138 U/L Critically high 46-116 [facility] Comment on above: Performed By: #### L IPA, MG, CMP, VIJI ####[facility] Hfevuvwsrl0298 [place] [address]Dr. Tadeo Smyth ALT [Catalytic activity/Vol] 22 U/L Normal 14-59 [facility] Comment on above: Performed By: #### L IPA, MG, CMP, VIJI ####[facility] Tbfqdeznfy8404 [place] [address]Dr. Tadeo Smyth Anion gap [Moles/Vol] 10.0 mmol/L Normal [facility] Comment on above: Performed By: #### L IPA, MG, CMP, VIJI ####[facility] Qsopihbxul0734[address] [place], [place] [address]Dr. Tadeo Smyth AST [Catalytic activity/Vol] 18 U/L Normal 15-37 [facility] Comment on above: Performed By: #### L IPA, MG, CMP, VIJI ####[facility] Mahaluybgr28[address] [place], [place] [address]Dr. Tadeo Smyth Bilirubin [Mass/Vol] 0.5 mg/dL Normal 0.2-1.0 [facility] Comment on above: Performed By: #### L IPA, MG, CMP, VIJI ####[facility] Kadswtdeta6130 [place] [address]Dr. Tadeo Smyth Calcium [Mass/Vol] 8.9 mg/dL Normal 8.5-10.1 [facility] Comment on above: Performed By: #### L IPA, MG, CMP, VIJI ####[facility] Cpacrfbqzh0241 [place] [address]Dr. Tadeo Smyth Chloride [Moles/Vol] 107 mmol/L Normal 98-107 [facility] Comment on above: Performed By: #### L IPA, MG, CMP, VIJI ####[facility] Xsrokmstcc4726 [place] [address]Dr. Tadeo Smyth CO2 [Moles/Vol] 28.8 mmol/L Normal 21.0-32.0 [facility] Comment on above: Performed By: #### L IPA, MG, CMP, VIJI ####[facility] Iicbwwmagx5218 [place] [address]Dr. Tadeo Haja Creatinine [Mass/Vol] 0.74 mg/dL Normal 0.55-1.02 [facility] Comment on above: Performed By: #### L IPA, MG, CMP, VIJI ####[facility] Czfnoyrhsu4648 [place] [address]Dr. Tadeo Smyth EGFR-AF LITHUANIAN >60 Normal >=60 [facility] Comment on above: Performed By: #### L IPA, MG, CMP, VIJI ####[facility] Ituwirxqgp4160[address] [place], [place] [address]Dr. Tadeo Smyth EGFR-NON AF LITHUANIAN >60 Normal >=60 [facility] Comment on above: Performed By: #### L IPA, MG, CMP, VIJI ####[facility] Oggtngfobl60[address] [place], [place] [address]Dr. Tadeo Smyth Globulin (S) [Mass/Vol] 3.3 g/dL Normal [facility] Comment on above: Performed By: #### L IPA, MG, CMP, VIJI ####[facility] Yhteulpncp94[address] [place], [place] [address]Dr. Tadeo Smyth Glucose [Mass/Vol] 96 mg/dL Normal 74-106 [facility] Comment on above: Performed By: #### L IPA, MG, CMP, VIJI ####[facility] Zkahwictqy7[address] [place], [place] [address]Dr. Tadeo Smyth Potassium [Moles/Vol] 3.8 mmol/L Normal 3.5-5.1 [facility] Comment on above: Performed By: #### L IPA, MG, CMP, VIJI ####[facility] Trvwwyjzco4215[address] [place], [place] [address]Dr. Tadeo Smyth Protein [Mass/Vol] 6.5 g/dL Normal 6.4-8.2 [facility] Comment on above: Performed By: #### L IPA, MG, CMP, VIJI ####[facility] Cnkhchkdki25[address] [place], [place] [address]Dr. Tadeo Smyth Sodium [Moles/Vol] 142 mmol/L Normal 136-145 [facility] Comment on above: Performed By: #### L IPA, MG, CMP, VIJI ####[facility] Ilychfbpqt6411 [place] [address]Dr. Tadeo Smyth Urea nitrogen [Mass/Vol] 8.0 mg/dL Normal 7.0-18.0 [facility] Comment on above: Performed By: #### L IPA, MG, CMP, VIJI ####[facility] Avsxktgvah[address] [place], [place] [address]Dr. Tadeo Smyth Urea nitrogen/Creatinine [Mass ratio] 10.8 mg/mg Normal [facility] Comment on above: Performed By: #### L IPA, MG, CMP, VIJI ####[facility] Bjxetbsjpa3722[address] [place], [place] [address]Dr. Tadeo Smyth AMMONIAon 11-01-2022 Ammonia (P) [Moles/Vol] 18 umol/L Normal 11-32 [facility] Comment on above: Performed By: #### A MM ####[facility] Gsdqoutvvz6940[address] [place], [place] [address]Dr. Tadeo Smyth AMYLASEon 11-01-2022 Amylase [Catalytic activity/Vol] 43 U/L Normal 25-115 [facility] Comment on above: Performed By: #### M G, VIJI, LIPA, CMP ####[facility] Jgyvyqopwh4514[address] [place], [place] [address]Dr. Tadeo Msyth CBC AUTO DIFFon 11-01-2022 BASO # 0.0 103/ul Normal 0.0-0.1 [facility] Comment on above: Performed By: #### C BC ####[facility] Xubzrxslyz9379[address] [place], [place] [address]Dr. Tadeo Haja Basophils/100 WBC (Bld) 0.6 % Normal 0.2-2.0 [facility] Comment on above: Performed By: #### C BC ####[facility] Beuwaqgntv437[address] [place], [place] [address]Dr. Tadeo Haja EO # 0.1 103/ul Normal 0.0-0.7 [facility] Comment on above: Performed By: #### C BC ####[facility] Xfmbxwrghu3358 [place] [address]Dr. Tadeo Smyth Eosinophils/100 WBC (Bld) 1.5 % Normal 0.9-7.0 [facility] Comment on above: Performed By: #### C BC ####[facility] Dnapgqjfxc6741 [place] [address]Dr. Tadeo Smyth Erythrocyte distribution width (RBC) [Ratio] 13.5 % Normal 11.0-15.0 [facility] Comment on above: Performed By: #### C BC ####[facility] Xpbgltnqul1402[address] [place], [place] [address]Dr. Tadeo Smyth Hematocrit (Bld) [Volume fraction] 37.7 % Normal 36.0-48.0 [facility] Comment on above: Performed By: #### C BC ####[facility] Fkdblfygzo9427[address] [place], [place] [address]Dr. Tadeo Smyth Hemoglobin (Bld) [Mass/Vol] 12.5 g/dL Normal 12.0-16.0 [facility] Comment on above: Performed By: #### C BC ####[facility] Ddviwwodxq1635[address] [place], [place] [address]Dr. Tadeo Smyth IG # 0.02 10e3/ul Normal 0.00-0.03 [facility] Comment on above: Performed By: #### C BC ####[facility] Gyncxfkoni1247[address] [place], [place] [address]Dr. Tadeo Smyth IG % 0.4 % Normal 0.0-0.5 [facility] Comment on above: Performed By: #### C BC ####[facility] Kkzjqqsojm[address] [place], [place] [address]Dr. Tadeo Smyth LYMPH # 1.3 103/ul Normal 1.2-3.8 [facility] Comment on above: Performed By: #### C BC ####[facility] Knlglacfmj9043[address] [place], [place] [address]Dr. Tadeo Smyth Lymphocytes/100 WBC (Bld) 23.9 % Normal 20.5-60.0 [facility] Comment on above: Performed By: #### C BC ####[facility] Mshfykrmxh2494 [place] [address]Dr. Tadeo Smyth MANUAL DIFF REQ NO Normal [facility] Comment on above: Performed By: #### C BC ####[facility] Itwhptydnc4949 [place] [id number]. Tadeo Smyth MCH (RBC) [Entitic mass] 29.8 pg Normal 26.7-34.0 [facility] Comment on above: Performed By: #### C BC ####[facility] Abyrhphvxv4171 [place] [address]Dr. Tadeo Smyth MCHC (RBC) [Mass/Vol] 33.2 g/dL Normal 29.9-35.2 [facility] Comment on above: Performed By: #### C BC ####[facility] Jaeqbipkdz4568[address] [place], [place] [address]Dr. Tadeo Smyth MCV (RBC) [Entitic vol] 89.8 fL Normal 81.0-99.0 [facility] Comment on above: Performed By: #### C BC ####[facility] Wkdiowqsyb90[address] [place], [place] [address]Dr. Tadeo Smyth MONO # 0.3 103/ul Normal 0.3-0.8 [facility] Comment on above: Performed By: #### C BC ####[facility] Shiytysaya23[address] [place], [place] [address]Dr. Tadeo Smyth Monocytes/100 WBC (Bld) 5.2 % Normal 1.7-12.0 [facility] Comment on above: Performed By: #### C BC ####[facility] Stgrnlgwck0232[address] [place], [place] [address]Dr. Tadeo Smyth NEUT # 3.6 103/ul Normal 1.4-6.5 [facility] Comment on above: Performed By: #### C BC ####[facility] Etyzdffpkd5684[address] [place], [place] [address]Dr. Tadeo Smyth Neutrophils/100 WBC (Bld) 68.4 % Normal 43.0-75.0 [facility] Comment on above: Performed By: #### C BC ####[facility] Srwbywosdu6382 [place] [id number]. Tadeo Smyth Platelet mean volume (Bld) [Entitic vol] 9.0 fL Critically low 9.5-13.5 [facility] Comment on above: Performed By: #### C BC ####[facility] Mvrnqzsxir2622 [place] [id number]. Tadeo Smyth PLT 356 103/ul Normal 150-450 [facility] Comment on above: Performed By: #### C BC ####[facility] Abvbcirfhm9282 [place] [phone]. Tadeo Smyth RBC 4.20 106/ul Normal 4.20-5.40 [facility] Comment on above: Performed By: #### C BC ####[facility] Cqapjrjdaj8165 [place] [address]Dr. Tadeo Smyth WBC 5.2 103/ul Normal 4.0-11.0 [facility] Comment on above: Performed By: #### C BC ####[facility] Znauillymn[address] [place], [place] [address]Dr. Tadeo Haja CT ABD/PELV W CONon 11-01-[address] ABD/PELV W CON Normal [facility] CULTURE BLOODon 11-01-2022 Microscopic examination of blood, culture Culture Observations: NO GROWTH AT 5 DAYS. Isolate 1 BC_BA_NA Normal [facility] Comment on above: Performed By: #### B LDCX2 ####[facility] Tezxnjykzg7858 [place] [phone]. Tadeo Smyth Performed By: #### B LDCX1 ####[facility] Jmmrfnbatt2591 [place] [phone]. Tadeo Smyth CULTURE URINEon 11-01-2022 CULTURE URINE Culture Observations : LIGHT GROWTH OF MIXED GENITAL SINTIA. NO POTENTIAL PATHOGENS SEEN. Normal [facility] Comment on above: Performed By: #### U RCX ####[facility] Ohahwwmjkr3065 [place] [address]Dr. Tadeo Smyth Covid-19 PCR (CVDTBH)on 10-07 SARS-CoV-2 (COVID-19) RNA CHEN+probe Ql (Unsp spec) Not detected Normal NOT DETECTED [facility] Comment on above: Result Comment: [...] for this test is supported by the [employer] of [employer] and Human Service's declaration that [...] be used). Performed By: #### C VDTBH ####[facility] Mrexdfpmhz9742[address] [place], [place] [address]Dr. Tadeo Smyth LACTATE/LACTIC ACIDon 2022 Lactate [Moles/Vol] 0.7 mmol/L Normal 0.4-1.9 [facility] Comment on above: Performed By: #### L ACT ####[facility] Zmbqzpvzdv38[address] [place], [place] [address]Dr. Tadeo [facility] LIPASEon 11-01-2022 Lipase [Catalytic activity/Vol] 58.0 U/L Critically low 73.0-393.0 [facility] Comment on above: Performed By: #### M VIJI Botello LIPA, CMP ####[facility] Mpborhrzdq866[address] [place], [place] [address]Dr. nicole [facility] MAGNESIUMon 11-01-2022 Magnesium [Mass/Vol] 2.0 mg/dL Normal 1.8-2.4 [facility] Comment on above: Performed By: #### M VIJI Botello LIPA, CMP ####[facility] Mwopmdngrq6398 [place] [address]Dr. Tadeo Smyth PROF 14(COMP METB)on 023 Albumin [Mass/Vol] 3.6 g/dL Normal 3.4-5.0 [facility] Comment on above: Performed By: #### M G, VIJI, LIPA, CMP ####[facility] Vqfwewcrkh5502 [place] [address]Dr. Tadeo Smyth Albumin/Globulin [Mass ratio] 1.0 {ratio} Normal [facility] Comment on above: Performed By: #### M G, VIJI, LIPA, CMP ####[facility] Ymaklrtecq1906[address] [place], [place] [address]Dr. Tadeo Smyth ALP [Catalytic activity/Vol] 164 U/L Critically high 46-116 [facility] Comment on above: Performed By: #### M G, VIJI, LIPA, CMP ####[facility] Sddofnhaec7645 [place] [address]Dr. Tadeo Smyth ALT [Catalytic activity/Vol] 22 U/L Normal 14-59 [facility] Comment on above: Performed By: #### M G, VIJI, LIPA, CMP ####[facility] Fabwbhdsbj4510[address] [place], [place] [address]Dr. Tadeo Smyth Anion gap [Moles/Vol] 11.5 mmol/L Normal [facility] Comment on above: Performed By: #### M G, VIJI, LIPA, CMP ####[facility] Riaflxlcni[address] [place], [place] [address]Dr. Tadeo Smyth AST [Catalytic activity/Vol] 17 U/L Normal 15-37 [facility] Comment on above: Performed By: #### M G, VIJI, LIPA, CMP ####[facility] Hmeegqcqor4614[address] [place], [place] [address]Dr. Tadeo Smyth Bilirubin [Mass/Vol] 0.4 mg/dL Normal 0.2-1.0 [facility] Comment on above: Performed By: #### M G, VIJI, LIPA, CMP ####[facility] Krkcewciky598[address] [place], [place] [address]Dr. Tadeo Smyth Calcium [Mass/Vol] 9.1 mg/dL Normal 8.5-10.1 [facility] Comment on above: Performed By: #### M Ayan, VIJI, LIPA, CMP ####[facility] Lojzttohcz3014 [place] [address]Dr. Tadeo Smyth Chloride [Moles/Vol] 105 mmol/L Normal 98-107 [facility] Comment on above: Performed By: #### M Ayan, VIJI, LIPA, CMP ####[facility] Skshlhzzac5573 [place] [address]Dr. Tadeo Smyth CO2 [Moles/Vol] 27.6 mmol/L Normal 21.0-32.0 [facility] Comment on above: Performed By: #### M Ayan, VIJI, LIPA, CMP ####[facility] Otimxjlrdh0510 [place] [address]Dr. Tadeo Smyth Creatinine [Mass/Vol] 0.72 mg/dL Normal 0.55-1.02 [facility] Comment on above: Performed By: #### M Ayan, VIJI, LIPA, CMP ####[facility] Uvhatzhhzo9613 [place] [address]Dr. Tadeo Smyth EGFR-AF LITHUANIAN >60 Normal >=60 [facility] Comment on above: Performed By: #### M Ayan, VIJI, LIPA, CMP ####[facility] Xfalhguico6488 [place] [address]Dr. Tadeo Smyth EGFR-NON AF LITHUANIAN >60 Normal >=60 [facility] Comment on above: Performed By: #### M G, VIJI, LIPA, CMP ####[facility] Mebmdcmplq2346 [place] [address]Dr. Tadeo Smyth Globulin (S) [Mass/Vol] 3.6 g/dL Normal [facility] Comment on above: Performed By: #### M G, VIJI, LIPA, CMP ####[facility] Fhtogcwlxr5954 [place] [address]Dr. Tadeo Smyth Glucose [Mass/Vol] 100 mg/dL Normal 74-106 [facility] Comment on above: Performed By: #### M Ayan, VIJI LIPA, CMP ####[facility] Aiwsftcvlw3907 [place] [address]Dr. Tadeo Smyth Potassium [Moles/Vol] 4.1 mmol/L Normal 3.5-5.1 [facility] Comment on above: Performed By: #### M Ayan, VIJI, LIPA, CMP ####[facility] Ouuvraaxcw2236 [place] [address]Dr. Tadeo Smyth Protein [Mass/Vol] 7.2 g/dL Normal 6.4-8.2 [facility] Comment on above: Performed By: #### M Ayan, VIJI LIPA, CMP ####[facility] Gegsqvjkqp1165[address] [place], [place] [address]Dr. Tadeo Smyth Sodium [Moles/Vol] 140 mmol/L Normal 136-145 [facility] Comment on above: Performed By: #### M VIJI Botello LIPA, CMP ####[facility] Bkdcgqhwbh400[address] [place], [place] [address]Dr. Tadeo Smyth Urea nitrogen [Mass/Vol] 15.0 mg/dL Normal 7.0-18.0 [facility] Comment on above: Performed By: #### M VIJI Botello LIPA, CMP ####[facility] Ibaajwqbgj[address] [place], [place] [address]Dr. Tadeo Smyth Urea nitrogen/Creatinine [Mass ratio] 20.8 mg/mg Normal [facility] Comment on above: Performed By: #### M VIJI Botello LIPA, CMP ####[facility] Gywlfgswiw6137[address] [place], [place] [address]Dr. Tadeo Smyth UA RANDOM W/MICROSCOPICon BACTERIA TRACE Abnormal NONE SEEN [facility] Comment on above: Performed By: #### U AMIC ####[facility] Ildcqfvtvf3083 [place] [address]Dr. Tadeo Smyth Bilirubin Ql (U) Negative Normal NEGATIVE [facility] Comment on above: Performed By: #### U AMIC ####[facility] Lwrhvjawjn8657 [place] [address]Dr. Tadeo Smyth CAST NONE SEEN Normal NONE SEEN [facility] Comment on above: Performed By: #### U AMIC ####[facility] Dapmeaknxt3[address] [place], [place] [address]Dr. Tadeo Smyth Clarity (U) CLEAR Normal CLEAR [facility] Comment on above: Performed By: #### U AMIC ####[facility] Gzeqjtfjic1449 [place] [address]Dr. Tadeo Smyth Color (U) LT. YELLOW Normal YELLOW [facility] Comment on above: Performed By: #### U AMIC ####[facility] Xooqkfcwwn[address] [place], [place] [address]Dr. Tadeo Smyth Crystals LM Nom (Urine sed) NONE SEEN Normal NONE SEEN [facility] Comment on above: Performed By: #### U AMIC ####[facility] Zgqyfbevbz9662 [place] [address]Dr. Tadeo Smyth Epithelial cells LM Ql (Urine sed) RARE Normal NONE SEEN /RARE [facility] Comment on above: Performed By: #### U AMIC ####[facility] Qgtvzwmhyw[address] [place], [place] [address]Dr. Tadeo Smyth Glucose Ql (U) Negative Normal NEGATIVE [facility] Comment on above: Performed By: #### U AMIC ####[facility] Rreevjrjib6301 [place] [address]Dr. Tadeo Smyth Hemoglobin Ql (U) TRACE-LYSED Abnormal NEGATIVE [facility] Comment on above: Performed By: #### U AMIC ####[facility] Ysnuhplbqd9821 [place] [address]Dr. Tadeo Smyth Ketones Ql (U) Negative Normal NEGATIVE [facility] Comment on above: Performed By: #### U AMIC ####[facility] Biqchqnuwu8[address] [place], [place] [address]Dr. Tadeo Smyth LEUKOCYTES Negative Normal NEGATIVE [facility] Comment on above: Performed By: #### U AMIC ####[facility] Gfbcuhcwir[address] [place], [place] [address]Dr. Yilan Smyth MUCOUS NONE SEEN Normal NONE SEEN [facility] Comment on above: Performed By: #### U AMIC ####[facility] Rvekwyzxfk7549 [place] [address]Dr. Margotnicole Smyth Nitrite Ql (U) Negative Normal NEGATIVE [facility] Comment on above: Performed By: #### U AMIC ####[facility] Xyndurgqqb0795 [place] [address]Dr. Tadeo Smyth pH (U) 6.0 [pH] Normal 5-9 [facility] Comment on above: Performed By: #### U AMIC ####[facility] Xjndpyaztk8822 [place] [address]Dr. Tadeo Smyth RBC 0-2 Normal 0-2 [facility] Comment on above: Performed By: #### U AMIC ####[facility] Whxjrgdadj1262 [place] [address]Dr. Tadeo Smyth SPEC GRAVITY 1.010 Normal 1.005-<=1.[address] [place] [address] Comment on above: Performed By: #### U AMIC ####[facility] Vegoxcjmqp9473 [place] [address]Dr. Tadeo Smyth UA PROTEIN Negative Normal NEGATIVE/ TRACE [facility] Comment on above: Performed By: #### U AMIC ####[facility] [address] [place] [address]Dr. Tadeo Smyth Urobilinogen Qn (U) 0.2 {Benito'U}/dL Normal 0.2 - 1. 0 [facility] Comment on above: Performed By: #### U AMIC ####[facility] N[address]ln[address] [place], [place] [address]Dr. Tadeo Smyth WBC 0-2 Abnormal NONE SEEN [facility] Comment on above: Performed By: #### U AMIC ####[facility] K[address]de[address] [place], [place] [address]Dr. Tadeo Smyth Activated partial thrombopla stin time (aPTT) in platelet poor plasma by coagulation aOrdered By: Conner Griffith on 10-26-2022 aPTT Coag (PPP) [Time] 30.8 s 25.1-36.5 [facility] Albumin [Mass/volume] in Ser um or PlasmaOrdered By: Conner Griffith on 10-26-2022 Albumin [Mass/Vol] 3.6 g/dL 3.2-5.5 [facility] Automated erythrocytes count in urine sediment (number/area)Ordered By: Conner Griffith on 10-26-2022 RBC Auto (Urine sed) [#/Area] 0-1 [HPF] 0-4 [facility] Automated leukocytes count i n urine sediment (number/area)Ordered By: Conner Griffith on 10-26-2022 WBC Auto (Urine sed) [#/Area] None seen [HPF] 0-4 [facility] Basophils Auto (Bld) [#/Vol] Ordered By: Conner Griffith on 10-26-2022 Basophils (Bld) [#/Vol] 0.0 10*3/uL 0.0-0.2 [facility] Basophils/100 WBC Auto (Bld) Ordered By: Conner Griffith on 10-26-2022 Basophils/100 WBC (Bld) 0.6 % . [facility] Bilirubin Test strip Ql (U)O rdered By: Conner Griffith on 10-26-2022 Bilirubin Ql (U) Negative Negative [facility] Color Auto (U)Ordered By: Kevin Griffith on 10-26-2022 Color (U) Yellow Yellow [facility] Creatinine and Glomerular fi ltration rate.predicted panel (S/P/Bld)Ordered By: Conner Griffith on 10-26-2022 Creatinine [Mass/Vol] 0.81 mg/dL 0.44-1.03 [facility] Eosinophils Auto (Bld) [#/Vo l]Ordered By: Conner Griffith on 10-26-2022 Eosinophils (Bld) [#/Vol] 0.2 10*3/uL 0.0-0.45 [facility] Eosinophils/100 WBC Auto (Bl d)Ordered By: Conner Griffith on 10-26-2022 Eosinophils/100 WBC (Bld) 3.3 % . [facility] Erythrocyte distribution wid th Auto (RBC) [Ratio]Ordered By: Conner Griffith on 10-26-2022 Erythrocyte distribution width (RBC) [Ratio] 14.5 % 11.9-15.3 [facility] Estimated glomerular filtrat ion rate (GFR) non- AmericanOrdered By: Conner Griffith on 10-26-2022 GFR/1.73 sq M.predicted among non-blacks MDRD (S/P/Bld) [Vol rate/Area] > 60 mL/Min [facility] Globulin Calc (S) [Mass/Vol] Ordered By: Conner Griffith on 10-26-2022 Globulin (S) [Mass/Vol] 3.2 g/dL [facility] Hematocrit Auto (Bld) [Volum e fraction]Ordered By: Conner Griffith on 10-26-2022 Hematocrit (Bld) [Volume fraction] 36.7 % 34.0-46.4 [facility] Hemoglobin [Mass/volume] in BloodOrdered By: Conner Griffith on 10-26-2022 Hemoglobin (Bld) [Mass/Vol] 12.1 g/dL 11.8-15.4 [facility] Ketones Auto test strip (U) [Mass/Vol]Ordered By: Conner Griffith on 10-26-2022 Ketones (U) [Mass/Vol] Negative Negative [facility] Laboratory - Chemistry and C hemistry - challengeOrdered By: Conner Griffith on 10-26-2022 Lipase [Catalytic activity/Vol] 37.0 U/L 22-51 [facility] Laboratory - CoagulationOrde red By: Conner Griffith on 10-26-2022 PT Coag (PPP) [Time] 10.6 s 9.0-12.9 [facility] Laboratory - UrinalysisOrder ed By: Conner Griffith on 10-26-2022 Hyaline casts LM Ql (Urine sed) None seen [LPF] 0-8 [facility] Leukocytes [#/volume] correc jun for nucleated erythrocytes in Blood by Automated counOrdered By: Conner Griffith on 10-26-2022 WBC corrected for nucl RBC Auto (Bld) [#/Vol] 6.3 10*3/uL 3.8-11.6 [facility] Lymphocytes Auto (Bld) [#/Vo l]Ordered By: Conner Griffith on 10-26-2022 Lymphocytes (Bld) [#/Vol] 1.9 10*3/uL 1.00-4.8 [facility] Lymphocytes/100 WBC Auto (Bl d)Ordered By: Conner Griffith on 10-26-2022 Lymphocytes/100 WBC (Bld) 29.7 % . [facility] MCH Auto (RBC) [Entitic mass ]Ordered By: Conner Griffith on 10-26-2022 MCH (RBC) [Entitic mass] 29.3 pg 24.7-34.3 [facility] MCHC Auto (RBC) [Mass/Vol]Or dered By: Conner Griffith on 10-26-2022 MCHC (RBC) [Mass/Vol] 33.1 g/dL 32.0-35.0 [facility] MCV Auto (RBC) [Entitic vol] Ordered By: Conner Griffith on 10-26-2022 MCV (RBC) [Entitic vol] 88.5 fL 80-100 [facility] Monocyte distribution width [Entitic volume] in Blood by AutomatedOrdered By: Conner Griffith on 10-26-2022 Monocyte distribution width Auto (Bld) [Entitic vol] 16.27 % 0.00-20.00 [facility] Monocytes Auto (Bld) [#/Vol] Ordered By: Conner Griffith on 10-26-2022 Monocytes (Bld) [#/Vol] 0.4 10*3/uL 0.0-0.8 [facility] Monocytes/100 WBC Auto (Bld) Ordered By: Conner Griffith on 10-26-2022 Monocytes/100 WBC (Bld) 7.1 % . [facility] Neutrophils Auto (Bld) [#/Vo l]Ordered By: Conner Griffith on 10-26-2022 Neutrophils (Bld) [#/Vol] 3.7 10*3/uL 1.8-7.7 [facility] Neutrophils/100 WBC Auto (Bl d)Ordered By: Conner Griffith on 10-26-2022 Neutrophils/100 WBC (Bld) 59.3 % . [facility] Nitrite Test strip Ql (U)Ord ered By: Conner Griffith on 10-26-2022 Nitrite Ql (U) Negative Negative [facility] No Panel InformationOrdered By: Conner Griffith on 10-26-2022 Estimated GFR () > 60 mL/Min [facility] Comment on above: GFR estimated refere nce range: According to KDOQI guidelines, <60 ml/min/1.73m2 is sufficient to diagnose a patient with chronic kidney disease. Pharmacy Creatinine Clearance (Chem 93.01 [facility] Nucleated erythrocytes [Pres ence] in Blood by Automated countOrdered By: Conner Griffith on 10-26-2022 Nucleated RBC Auto Ql (Bld) 0.3 /100{WBC} 0-0.5 [facility] Platelet mean volume Auto (B ld) [Entitic vol]Ordered By: Conner Griffith on 10-26-2022 Platelet mean volume (Bld) [Entitic vol] 7.5 fL 6.3-10.7 [facility] Platelet poor plasma interna tional normalized ratio (INR) by coagulation assay (relatOrdered By: Conner Griffith on 10-26-2022 INR Coag (PPP) [Relative time] 0.9 {INR} [facility] Comment on above: INR Therapeutic Rang e [...] 10*3/uL 150-450 [facility] Protein Auto test strip (U) [Mass/Vol]Ordered By: Conner Griffith on 10-26-2022 Protein (U) [Mass/Vol] Negative Negative [facility] Protein [Mass/volume] in Ser um or PlasmaOrdered By: Conner Griffith on 10-26-2022 Protein [Mass/Vol] 6.8 g/dL 6.1-7.9 [facility] RBC Auto (Bld) [#/Vol]Ordere d By: Conner Griffith on 10-26-2022 RBC (Bld) [#/Vol] 4.14 10*6/uL 3.60-5.00 [facility] Serum or plasma alanine cooley otransferase measurement without P-5'-P (enzymatic activiOrdered By: Conner Griffith on 10-26-2022 ALT No additional P-5'-P [Catalytic activity/Vol] 18 U/L 10-60 [facility] Serum or plasma albumin/glob ulin mass ratioOrdered By: Conner Griffith on 10-26-2022 Albumin/Globulin [Mass ratio] 1.1 {ratio} [facility] Serum or plasma alkaline augustin sphatase measurement (enzymatic activity/volume)Ordered By: Conner Griffith on 10-26-2022 ALP [Catalytic activity/Vol] 121 U/L 32-92 [facility] Serum or plasma anion gap de terminationOrdered By: Conner Griffith on 10-26-2022 Anion gap [Moles/Vol] 11.3 mmol/L 6.0-15.0 [facility] Serum or plasma aspartate am inotransferase measurement (enzymatic activity/volume)Ordered By: Conner Griffith on 10-26-2022 AST [Catalytic activity/Vol] 19 U/L 10-42 [facility] Serum or plasma calcium julee urement (mass/volume)Ordered By: Conner Griffith on 10-26-2022 Calcium [Mass/Vol] 8.9 mg/dL 8.2-10.2 [facility] Serum or plasma chloride julio surement (moles/volume)Ordered By: Conner Griffith on 10-26-2022 Chloride [Moles/Vol] 108 mmol/L 95-114 [facility] Serum or plasma glucose jluee urement (mass/volume)Ordered By: Conner Griffith on 10-26-2022 Glucose [Mass/Vol] 95 mg/dL 70-100 [facility] Comment on above: ADA recommended refe rence rangeRandom Glucose Reference Range is dependent on time and content of last meal. Glucose of more than 200 mg/dL in a nonstressed, ambulatory subject supports the diagnosis of Diabetes Mellitus. Serum or plasma potassium me asurement (moles/volume)Ordered By: Conner Griffith on 10-26-2022 Potassium [Moles/Vol] 3.4 mmol/L 3.5-5.1 [facility] Serum or plasma sodium measu rement (moles/volume)Ordered By: Conner Griffith on 10-26-2022 Sodium [Moles/Vol] 141 mmol/L 136-146 [facility] Serum or plasma total biliru bin measurement (mass/volume)Ordered By: Conner Griffith on 10-26-2022 Bilirubin [Mass/Vol] 0.4 mg/dL 0.3-1.2 [facility] Serum or plasma total carbon dioxide measurement (moles/volume)Ordered By: Conner Griffith on 10-26-2022 CO2 [Moles/Vol] 25.1 mmol/L 22.0-30.0 [facility] Serum or plasma urea nitroge n measurement (mass/volume)Ordered By: Conner Grifftih on 10-26-2022 Urea nitrogen [Mass/Vol] 18 mg/dL 9-23 [facility] Specific gravity Auto test s trip (U) [Rel density]Ordered By: Conner Griffith on 10-26-2022 Specific gravity (U) [Rel density] 1.019 1.001-1.030 [facility] Squamous epithelial cells de tection in urine sediment by light microscopyOrdered By: Conner Griffith on 10-26-2022 Epithelial cells.squamous LM Ql (Urine sed) 1-2 [HPF] 0-2 [facility] Urine bacteria detection by automated methodOrdered By: Conner Griffith on 10-26-2022 Bacteria Auto Ql (U) None seen None Seen [facility] Urine clarity by refractomet ry automatedOrdered By: Conner Griffith on 10-26-2022 Clarity Refractometry automated (U) Clear Clear [facility] Urine glucose measurement by automated test strip (mass/volume)Ordered By: Conner Griffith on 10-26-2022 Glucose Auto test strip (U) [Mass/Vol] Normal mg/dL Normal [facility] Urine hemoglobin detection b y automated test stripOrdered By: Conner Griffith on 10-26-2022 Hemoglobin Auto test strip Ql (U) Negative Negative [facility] Urine lactic acid measuremen tOrdered By: Conner Griffith on 10-26-2022 Lactate (U) [Moles/Vol] 1.0 mmol/L 0.5-2.2 [facility] Urine leukocyte esterase det ection by automated test stripOrdered By: Conner Griffith on 10-26-2022 Leukocyte esterase Auto test strip Ql (U) 1+ Negative [facility] Urobilinogen Auto test strip (U) [Mass/Vol]Ordered By: Conner Griffith on 10-26-2022 Urobilinogen (U) [Mass/Vol] Normal mg/dL Normal [facility] WBC Auto (Bld) [#/Vol]Ordere d By: Conner Griffith on 10-26-2022 WBC (Bld) [#/Vol] 6.3 10*3/uL 3.8-11.6 [facility] pH Auto test strip (U)Ordere d By: Conner Griffith on 10-26-2022 pH (U) 6.5 [pH] 5.0-9.0 [facility] CBC AUTO DIFFon 09-21-2022 BASO # 0.0 103/ul Normal 0.0-0.1 [facility] Comment on above: Performed By: #### C BC ####[facility] [address] [place], [place] [address]Dr. Tadeo Smyth Basophils/100 WBC (Bld) 0.4 % Normal 0.2-2.0 [facility] Comment on above: Performed By: #### C BC ####[facility] [address] [place] [address]Dr. Tadeo Smyth EO # 0.1 103/ul Normal 0.0-0.7 [facility] Comment on above: Performed By: #### C BC ####[facility] [address] [place] [address]Dr. Tadeo Smtyh Eosinophils/100 WBC (Bld) 1.8 % Normal 0.9-7.0 [facility] Comment on above: Performed By: #### C BC ####[facility] [address] [place] [address]Dr. Tadeo Smyth Erythrocyte distribution width (RBC) [Ratio] 13.8 % Normal 11.0-15.0 [facility] Comment on above: Performed By: #### C BC ####[facility] [address] [place] [address]Dr. Tadeo Smyth Hematocrit (Bld) [Volume fraction] 41.0 % Normal 36.0-48.0 [facility] Comment on above: Performed By: #### C BC ####[facility] [address] [place], [place] [address]Dr. Tadeo Smyth Hemoglobin (Bld) [Mass/Vol] 13.3 g/dL Normal 12.0-16.0 [facility] Comment on above: Performed By: #### C BC ####[facility] [address]xc[address] [place], [place] [address]Dr. Tadeo Smyth IG # 0.01 10e3/ul Normal 0.00-0.03 [facility] Comment on above: Performed By: #### C BC ####[facility] [address] [place], [place] [address]Dr. Tadeo Smyth IG % 0.1 % Normal 0.0-0.5 [facility] Comment on above: Performed By: #### C BC ####[facility] [address] [place], [place] [address]Dr. Tadeo Smyth LYMPH # 1.7 103/ul Normal 1.2-3.8 [facility] Comment on above: Performed By: #### C BC ####[facility] Arahay[address]au[address] [place], [place] [address]Dr. Tadeo Smyth Lymphocytes/100 WBC (Bld) 24.8 % Normal 20.5-60.0 [facility] Comment on above: Performed By: #### C BC ####[facility] [address]jaww[address] [place], [place] [address]Dr. Tadeo Smyth MANUAL DIFF REQ NO Normal [facility] Comment on above: Performed By: #### C BC ####[facility] [address]cw[address] [place], [place] [address]Dr. Tadeo Smyth MCH (RBC) [Entitic mass] 29.0 pg Normal 26.7-34.0 [facility] Comment on above: Performed By: #### C BC ####[facility] [address] [place] [id number]. Tadeo Smyth MCHC (RBC) [Mass/Vol] 32.4 g/dL Normal 29.9-35.2 [facility] Comment on above: Performed By: #### C BC ####[facility] [address] [place] [address]Dr. Tadeo Smyth MCV (RBC) [Entitic vol] 89.3 fL Normal 81.0-99.0 [facility] Comment on above: Performed By: #### C BC ####[facility] [address] [place] [address]Dr. Tadeo Haja MONO # 0.5 103/ul Normal 0.3-0.8 [facility] Comment on above: Performed By: #### C BC ####[facility] [address] [place] [address]Dr. Tadeo Haja Monocytes/100 WBC (Bld) 6.9 % Normal 1.7-12.0 [facility] Comment on above: Performed By: #### C BC ####[facility] [address] [place] [address]Dr. Tadeo Smyth NEUT # 4.5 103/ul Normal 1.4-6.5 [facility] Comment on above: Performed By: #### C BC ####[facility] [address] [place] [address]Dr. Tadeo Haja Neutrophils/100 WBC (Bld) 66.0 % Normal 43.0-75.0 [facility] Comment on above: Performed By: #### C BC ####[facility] [address] [place] [address]Dr. Tadeo Haja Platelet mean volume (Bld) [Entitic vol] 8.8 fL Critically low 9.5-13.5 [facility] Comment on above: Performed By: #### C BC ####[facility] [address] [place] [id number]. Tadeo Haja PLT 384 103/ul Normal 150-450 [facility] Comment on above: Performed By: #### C BC ####[facility] [address] [place] [address]Dr. Tadeo Smyth RBC 4.59 106/ul Normal 4.20-5.40 [facility] Comment on above: Performed By: #### C BC ####[facility] [address]hs[address] [place] [address]Dr. Tadeo Smyth WBC 6.8 103/ul Normal 4.0-11.0 [facility] Comment on above: Performed By: #### C BC ####[facility] [address]xx[address] [place], [place] [address]Dr. Tadeo Smyth PROF CHEM 8 (BAS METB)on Anion gap [Moles/Vol] 13.8 mmol/L Normal [facility] Comment on above: Performed By: #### B MP ####[facility] [address] [place], [place] [address]Dr. Tadeo Smyth Calcium [Mass/Vol] 9.6 mg/dL Normal 8.5-10.1 [facility] Comment on above: Performed By: #### B MP ####[facility] [address] [place], [place] [address]Dr. Tadeo Smyth Chloride [Moles/Vol] 106 mmol/L Normal 98-107 [facility] Comment on above: Performed By: #### B MP ####[facility] [address]wxeug[address] [place], [place] [address]Dr. Tadeo Smyth CO2 [Moles/Vol] 25.9 mmol/L Normal 21.0-32.0 [facility] Comment on above: Performed By: #### B MP ####[facility] [address] [place] [address]Dr. Tadeo Smyth Creatinine [Mass/Vol] 0.92 mg/dL Normal 0.55-1.02 [facility] Comment on above: Performed By: #### B MP ####[facility] [address] [place] [address]Dr. Tadeo Smyth EGFR-AF LITHUANIAN >60 Normal >=60 [facility] Comment on above: Performed By: #### B MP ####[facility] [address] [place] [address]Dr. Tadeo Smyth EGFR-NON AF LITHUANIAN >60 Normal >=60 [facility] Comment on above: Performed By: #### B MP ####[facility] [address] [place] [address]Dr. Tadeo Smyth Glucose [Mass/Vol] 98 mg/dL Normal 74-106 [facility] Comment on above: Performed By: #### B MP ####[facility] Ankm[address]znxf[address] [place], [place] [address]Dr. Tadeo Smyth Potassium [Moles/Vol] 3.7 mmol/L Normal 3.5-5.1 [facility] Comment on above: Performed By: #### B MP ####[facility] [address]ivns[address]ht[address] [place], [place] [address]Dr. Tadeo Smyth Sodium [Moles/Vol] 142 mmol/L Normal 136-145 [facility] Comment on above: Performed By: #### B MP ####[facility] [address]ual[address] [place], [place] [address]Dr. Tadeo Smyth Urea nitrogen [Mass/Vol] 19.0 mg/dL Critically high 7.0-18.0 [facility] Comment on above: Performed By: #### B MP ####[facility] Gzfhvx[address]aml[address] [place], [place] [address]Dr. Margotnicole Haja Urea nitrogen/Creatinine [Mass ratio] 20.7 mg/mg Normal [facility] Comment on above: Performed By: #### B MP ####[facility] E[address]ieddcqj[address] [place], [place] [address]Dr. Tadeo Haja XR KUB 1 VIEWon 09-21-2022 XR KUB 1 VIEW Normal [facility] AMYLASEon 09-18-2022 Amylase [Catalytic activity/Vol] 58 U/L Normal 25-115 [facility] Comment on above: Performed By: #### L IPA, CMP, VIJI ####[facility] [address] [place] [address]Dr. Tadeo Smyth CBC AUTO DIFFon 09-18-2022 BASO # 0.0 103/ul Normal 0.0-0.1 [facility] Comment on above: Performed By: #### C BC ####[facility] [address]twecmumux[address] [place], [place] [address]Dr. Margotnicole Smyth Basophils/100 WBC (Bld) 0.3 % Normal 0.2-2.0 [facility] Comment on above: Performed By: #### C BC ####[facility] R[address]ntcsfia[address] [place], [place] [address]Dr. Margotnicole Smyth EO # 0.1 103/ul Normal 0.0-0.7 [facility] Comment on above: Performed By: #### C BC ####[facility] Lmrqabuier[address] [place], [place] [address]Dr. Tadeo Smyth Eosinophils/100 WBC (Bld) 1.8 % Normal 0.9-7.0 [facility] Comment on above: Performed By: #### C BC ####[facility] Rms[address]qzbil[address] [place], [place] [address]Dr. Margotnicole Smyth Erythrocyte distribution width (RBC) [Ratio] 13.7 % Normal 11.0-15.0 [facility] Comment on above: Performed By: #### C BC ####[facility] [address]cd[address] [place], [place] [address]Dr. Margotnicole Smyth Hematocrit (Bld) [Volume fraction] 37.4 % Normal 36.0-48.0 [facility] Comment on above: Performed By: #### C BC ####[facility] C[address]lcshxrw[address] [place], [place] [address]Dr. Margotnicole Smyth Hemoglobin (Bld) [Mass/Vol] 12.3 g/dL Normal 12.0-16.0 [facility] Comment on above: Performed By: #### C BC ####[facility] [address]cqvyc[address] [place], [place] [address]Dr. Tadeo Smyth IG # 0.02 10e3/ul Normal 0.00-0.03 [facility] Comment on above: Performed By: #### C BC ####[facility] [address]ws[address] [place] [address]Dr. Margotnicole Smyth IG % 0.3 % Normal 0.0-0.5 [facility] Comment on above: Performed By: #### C BC ####[facility] [address]rot[address] [place] [address]DrNeo Margotnicole Smyth LYMPH # 2.2 103/ul Normal 1.2-3.8 [facility] Comment on above: Performed By: #### C BC ####[facility] H[address]smybyd[address] [place], [place] [address]DrNeo Margotnicole Smyth Lymphocytes/100 WBC (Bld) 29.3 % Normal 20.5-60.0 [facility] Comment on above: Performed By: #### C BC ####[facility] O[address]yl[address] [place], [place] [address]DrNeo Smyth MANUAL DIFF REQ NO Normal [facility] Comment on above: Performed By: #### C BC ####[facility] U[address]zw[address] [place] [id number]. Tadeo Haja MCH (RBC) [Entitic mass] 29.0 pg Normal 26.7-34.0 [facility] Comment on above: Performed By: #### C BC ####[facility] [address]iwz[address] [place], [place] [address]Dr. Tadeo Haja MCHC (RBC) [Mass/Vol] 32.9 g/dL Normal 29.9-35.2 [facility] Comment on above: Performed By: #### C BC ####[facility] [address] [place], [place] [id number] Margotnicole Smyth MCV (RBC) [Entitic vol] 88.2 fL Normal 81.0-99.0 [facility] Comment on above: Performed By: #### C BC ####[facility] [address] [place], [place] [id number] Smyth MONO # 0.5 103/ul Normal 0.3-0.8 [facility] Comment on above: Performed By: #### C BC ####[facility] [address]nyqp[address] [place] [id number]. Tadeo Smyth Monocytes/100 WBC (Bld) 6.4 % Normal 1.7-12.0 [facility] Comment on above: Performed By: #### C BC ####[facility] [address]qmvp[address] [place] [address]Dr. Tadeo Smyth NEUT # 4.7 103/ul Normal 1.4-6.5 [facility] Comment on above: Performed By: #### C BC ####[facility] [address]em[address] [place] [id number]. Tadeo Smyth Neutrophils/100 WBC (Bld) 61.9 % Normal 43.0-75.0 [facility] Comment on above: Performed By: #### C BC ####[facility] [address]jj[address]ibu[address] [place] [id number]. Tadeo Smyth Platelet mean volume (Bld) [Entitic vol] 9.0 fL Critically low 9.5-13.5 [facility] Comment on above: Performed By: #### C BC ####[facility] [address] [place] [id number]. Tadeo Smyth PLT 395 103/ul Normal 150-450 [facility] Comment on above: Performed By: #### C BC ####[facility] Drmyvgtftl0754 [place] [id number]. Tadeo Smyth RBC 4.24 106/ul Normal 4.20-5.40 [facility] Comment on above: Performed By: #### C BC ####[facility] Eniyuggrcf8275 [place] [id number]. Tadeo Smyth WBC 7.6 103/ul Normal 4.0-11.0 [facility] Comment on above: Performed By: #### C BC ####[facility] Tbbcujkaij1382 [place] [id number]. Tadeo Smyth CT ABD/PELV W CONon 09-18-[address] ABD/PELV W CON Normal [facility] ER URINE PROFILEon 3 Bilirubin Ql (U) SMALL Abnormal NEGATIVE [facility] Comment on above: Performed By: #### SANDRO MERCHANTRO ####[facility] Nnadmifntn[address] [place], [place] [address]Dr. Tadeo Smyth Clarity (U) CLEAR Normal CLEAR [facility] Comment on above: Performed By: #### Matthew FRANCISCO UMICRO ####[facility] Cqkapfrhjw7[address] [place], [place] [address]Dr. Tadeo Smyth Color (U) DK. YELLOW Normal YELLOW [facility] Comment on above: Performed By: #### RANDI MERCHANTICRO ####[facility] Slsezmwvuq24[address] [place], [place] [address]Dr. Tadeo Smyth ERUAHD A micrscopic examina tion will be performed if indicated. Normal [facility] Comment on above: Performed By: #### RANDI MERCHANTICRO ####[facility] Acaooqenjz8[address] [place], [place] [address]Dr. Tadeo Smyth Glucose Ql (U) Negative Normal NEGATIVE [facility] Comment on above: Performed By: #### Matthew FRANCISCO UMICRO ####[facility] Ayxufzhrvg87[address] [place], [place] [address]Dr. Tadeo Smyth Hemoglobin Ql (U) SMALL Abnormal NEGATIVE [facility] Comment on above: Performed By: #### RANDI MERCHANTICRO ####[facility] Jlpvdptypk[address] [place], [place] [address]Dr. Tadeo Smyth Ketones Ql (U) Negative Normal NEGATIVE [facility] Comment on above: Performed By: #### Matthew FRANCISCO UMICRO ####[facility] Sajuaukgfp420[address] [place], [place] [address]Dr. Tadeo Smyth LEUKOCYTES Negative Normal NEGATIVE [facility] Comment on above: Performed By: #### Matthew FRANCISCO UMICRO ####[facility] Duafffublo2452[address] [place], [place] [address]Dr. Tadeo Smyth Nitrite Ql (U) Negative Normal NEGATIVE [facility] Comment on above: Performed By: #### SANDRO MERCHANTRO ####[facility] Yuhlkfghse8[address] [place] [address]Dr. Tadeo Smyth pH (U) 5.5 [pH] Normal 5-9 [facility] Comment on above: Performed By: #### SANDRO MERCHANTRO ####[facility] Evvrcsprqy4006 [place] [address]Dr. Tadeo Smyth SPEC GRAVITY >=1.030 Abnormal 1.005-<=1.0 25 [facility] Comment on above: Performed By: #### SANDRO MERCHANTRO ####[facility] Csudnjiowh9[address] [place], [place] [address]Dr. Tadeo Smyth UA PROTEIN TRACE Normal NEGATIVE/ TRACE [facility] Comment on above: Performed By: #### SANDRO MERCHANTRO ####[facility] Npffdxsyau4125[address] [place], [place] [address]Dr. Tadeo Smyth UR MICRO IND INDICATED Normal [facility] Comment on above: Performed By: #### SANDRO MERCHANTRO ####[facility] Yknhfrppph8863[address] [place], [place] [address]Dr. Tadoe Smyth Urobilinogen Qn (U) 0.2 {Benito'U}/dL Normal 0.2 - 1. 0 [facility] Comment on above: Performed By: #### SANDRO MERCHANTRO ####[facility] Vtlhxsttja48[address] [place], [place] [address]Dr. Tadeo Smyth LACTATE/LACTIC ACIDon 2022 Lactate [Moles/Vol] 1.1 mmol/L Normal 0.4-1.9 [facility] Comment on above: Performed By: #### L ACT ####[facility] Tuzwlrsgld[address] [place], [place] [address]Dr. Tadeo Smyth LIPASEon 09-18-2022 Lipase [Catalytic activity/Vol] 75.0 U/L Normal 73.0-393.0 [facility] Comment on above: Performed By: #### L IPA, CMP, VIJI ####[facility] Ciejbmwtam8377[address] [place], [place] [address]Dr. Tadeo Smyth PROF 14(COMP METB)on 023 Albumin [Mass/Vol] 3.4 g/dL Normal 3.4-5.0 [facility] Comment on above: Performed By: #### L IPA, CMP, VIJI ####[facility] Rwsytxdthr0522 [place] [address]Dr. Tadeo Smyth Albumin/Globulin [Mass ratio] 0.9 {ratio} Normal [facility] Comment on above: Performed By: #### L IPA, CMP, VIJI ####[facility] Spsbtqdvgd1311 [place] [address]Dr. Tadeo Smyth ALP [Catalytic activity/Vol] 164 U/L Critically high 46-116 [facility] Comment on above: Performed By: #### L IPA, CMP, VIJI ####[facility] Gkqvwwpvgr7667 [place] [address]Dr. Tadeo Smyth ALT [Catalytic activity/Vol] 29 U/L Normal 14-59 [facility] Comment on above: Performed By: #### L IPA, CMP, VIJI ####[facility] Uagrdlhmaq7938 [place] [address]Dr. Tadeo Smyth Anion gap [Moles/Vol] 12.3 mmol/L Normal [facility] Comment on above: Performed By: #### L IPA, CMP, VIJI ####[facility] Frcwmohare0063 [place] [address]Dr. Tadeo Smyth AST [Catalytic activity/Vol] 30 U/L Normal 15-37 [facility] Comment on above: Performed By: #### L IPA, CMP, VIJI ####[facility] Ftnyihzrmo0721 [place] [address]Dr. Tadeo Smyth Bilirubin [Mass/Vol] 0.3 mg/dL Normal 0.2-1.0 [facility] Comment on above: Performed By: #### L IPA, CMP, VIJI ####[facility] Aidpmbfstk8183 [place] [address]Dr. Tadeo Smyth Calcium [Mass/Vol] 8.9 mg/dL Normal 8.5-10.1 [facility] Comment on above: Performed By: #### L IPA, CMP, VIJI ####[facility] Wwqdtzoyel2899 [place] [address]Dr. Tadeo Smyth Chloride [Moles/Vol] 103 mmol/L Normal 98-107 [facility] Comment on above: Performed By: #### L IPA, CMP, VIJI ####[facility] Wyuvpdreap6390 [place] [address]Dr. Tadeo Smyth CO2 [Moles/Vol] 27.8 mmol/L Normal 21.0-32.0 [facility] Comment on above: Performed By: #### L IPA, CMP, VIJI ####[facility] Rsdmfkljjo7207[address] [place], [place] [address]Dr. Tadeo Smyth Creatinine [Mass/Vol] 0.89 mg/dL Normal 0.55-1.02 [facility] Comment on above: Performed By: #### L IPA, CMP, VIJI ####[facility] Offidcfnnj3282[address] [place], [place] [address]Dr. Tadeo Smyth EGFR-AF LITHUANIAN >60 Normal >=60 [facility] Comment on above: Performed By: #### L IPA, CMP, VIJI ####[facility] Outbashmcd0116[address] [place], [place] [address]Dr. Tadeo Smyth EGFR-NON AF LITHUANIAN >60 Normal >=60 [facility] Comment on above: Performed By: #### L IPA, CMP, VIJI ####[facility] Ppuddhnofa6036[address] [place], [place] [address]Dr. Tadeo Smyth Globulin (S) [Mass/Vol] 3.9 g/dL Normal [facility] Comment on above: Performed By: #### L IPA, CMP, VIJI ####[facility] Lwopsfrxgy5361 [place] [address]Dr. Tadeo Smyth Glucose [Mass/Vol] 96 mg/dL Normal 74-106 [facility] Comment on above: Performed By: #### L IPA, CMP, VIJI ####[facility] Lophycswes027[address] [place], [place] [address]Dr. Tadeo Smyth Potassium [Moles/Vol] 4.1 mmol/L Normal 3.5-5.1 [facility] Comment on above: Performed By: #### L IPA CMP, VIJI ####[facility] Tghkiuiozx9520 [place] [address]Dr. Margotnicole Smyth Protein [Mass/Vol] 7.3 g/dL Normal 6.4-8.2 [facility] Comment on above: Performed By: #### L IPA CMP, VIJI ####[facility] Nofvpfwsub2977[address] [place], [place] [address]Dr. Tadeo Smyth Sodium [Moles/Vol] 139 mmol/L Normal 136-145 [facility] Comment on above: Performed By: #### L IPA CMP, VIJI ####[facility] Csztqhbotl4126[address] [place], [place] [address]Dr. Tadeo Smyth Urea nitrogen [Mass/Vol] 19.0 mg/dL Critically high 7.0-18.0 [facility] Comment on above: Performed By: #### L ISABEL CMP, VIJI ####[facility] Xokqwfphrf8837[address] [place], [place] [address]Dr. Tadeo Smyth Urea nitrogen/Creatinine [Mass ratio] 21.3 mg/mg Normal [facility] Comment on above: Performed By: #### L ISABEL CMP, VIJI ####[facility] Imfbnkunvf3798[address] [place], [place] [address]Dr. Tadeo Smyth URINE MICROSCOPIC ONLYon BACTERIA TRACE Abnormal NONE SEEN [facility] Comment on above: Performed By: #### KAROL MERCHANT ####[facility] Ijqikteqxt3404[address] [place], [place] [address]Dr. Tadeo Smyth Bacteria identified Cx Nom (U) NOT INDICATED Normal [facility] Comment on above: Performed By: #### SANDRO MERCHANTRO ####[facility] Lxiaevbibr2598[address] [place], [place] [address]Dr. Tadeo Smyth CAST NONE SEEN Normal NONE SEEN [facility] Comment on above: Performed By: #### SANDRO MERCHANTRO ####[facility] Jflzqyhzie4378[address] [place], [place] [address]Dr. Tadeo Smyth Crystals LM Nom (Urine sed) SEEN Abnormal NONE SEEN [facility] Comment on above: Performed By: #### SANDRO MERCHANTRO ####[facility] Nwdezcugyk9090 [place] [address]Dr. Tadeo Smyth Epithelial cells LM Ql (Urine sed) RARE Normal NONE SEEN /RARE [facility] Comment on above: Performed By: #### SANDRO MERCHANTRO ####[facility] Vpmhxtmsdj8895 [place] [address]Dr. Tadeo Smyth MUCOUS TRACE Abnormal NONE SEEN [facility] Comment on above: Performed By: #### RANDI MERCHANTICRO ####[facility] Nscpnkphsw8618[address] [place], [place] [address]Dr. Tadeo Smyth RBC 0-2 Normal 0-2 [facility] Comment on above: Performed By: #### SANDRO MERCHANTRO ####[facility] Vzjbqqmvyv389[address] [place], [place] [address]Dr. Tadeo Smyth WBC 0-2 Abnormal NONE SEEN [facility] Comment on above: Performed By: #### SANDRO MERCHANTRO ####[facility] Nqftaodjuw[address] [place], [place] [address]Dr. Tadeo Smyth CBC AUTO DIFFon 09-14-2022 BASO # 0.0 103/ul Normal 0.0-0.1 [facility] Comment on above: Performed By: #### C BC ####[facility] Kiftkjwuuv4574[address] [place], [place] [address]Dr. Tadeo Smyth Basophils/100 WBC (Bld) 0.3 % Normal 0.2-2.0 [facility] Comment on above: Performed By: #### C BC ####[facility] Jnoikownpb6406[address] [place], [place] [address]Dr. Tadeo Smyth EO # 0.2 103/ul Normal 0.0-0.7 [facility] Comment on above: Performed By: #### C BC ####[facility] Rwkgxjfdtp9664[address] [place], [place] [address]Dr. Tadeo Smyth Eosinophils/100 WBC (Bld) 1.1 % Normal 0.9-7.0 [facility] Comment on above: Performed By: #### C BC ####[facility] Qffcjfwkxa2513 [place] [address]Dr. Tadeo Smyth Erythrocyte distribution width (RBC) [Ratio] 13.7 % Normal 11.0-15.0 [facility] Comment on above: Performed By: #### C BC ####[facility] Hiqqifpjpa2418 [place] [address]Dr. Tadeo Smyth Hematocrit (Bld) [Volume fraction] 41.3 % Normal 36.0-48.0 [facility] Comment on above: Performed By: #### C BC ####[facility] Qrrcmdjmdm5870[address] [place], [place] [address]Dr. Tadeo Smyth Hemoglobin (Bld) [Mass/Vol] 13.6 g/dL Normal 12.0-16.0 [facility] Comment on above: Performed By: #### C BC ####[facility] Wlvwbjncbr7670[address] [place], [place] [address]Dr. Tadeo Smyth IG # 0.05 10e3/ul Critically high 0.00-0.03 [facility] Comment on above: Performed By: #### C BC ####[facility] Arkdrqanzb7401[address] [place], [place] [address]Dr. Tadeo Smyth IG % 0.4 % Normal 0.0-0.5 [facility] Comment on above: Performed By: #### C BC ####[facility] Nzfpszgirt9439[address] [place], [place] [address]Dr. Tadeo Smyth LYMPH # 2.2 103/ul Normal 1.2-3.8 [facility] Comment on above: Performed By: #### C BC ####[facility] Voiagtytnf9982[address] [place], [place] [address]Dr. Tadeo Smyth Lymphocytes/100 WBC (Bld) 16.3 % Critically low 20.5-60.0 [facility] Comment on above: Performed By: #### C BC ####[facility] Uwqflbpone8723[address] [place], [place] [address]Dr. Tadeo Smyth MANUAL DIFF REQ NO Normal [facility] Comment on above: Performed By: #### C BC ####[facility] Oqtulidxoa1349 [place] [id number]. Tadeo Haja MCH (RBC) [Entitic mass] 28.9 pg Normal 26.7-34.0 [facility] Comment on above: Performed By: #### C BC ####[facility] Wmzbtnuixi8914 [place] [id number]. Tadeo Smyth MCHC (RBC) [Mass/Vol] 32.9 g/dL Normal 29.9-35.2 [facility] Comment on above: Performed By: #### C BC ####[facility] Pgyrkvoluq3956 [place] [address]Dr. Tadeo Smyth MCV (RBC) [Entitic vol] 87.9 fL Normal 81.0-99.0 [facility] Comment on above: Performed By: #### C BC ####[facility] Stsulqduoe499[address] [place], [place] [address]Dr. Tadeo Smyth MONO # 0.7 103/ul Normal 0.3-0.8 [facility] Comment on above: Performed By: #### C BC ####[facility] Dngevzuyke978[address] [place], [place] [address]Dr. Tadeo Smyth Monocytes/100 WBC (Bld) 5.1 % Normal 1.7-12.0 [facility] Comment on above: Performed By: #### C BC ####[facility] Kqfximyfim8569 [place] [address]DrNeo Smyth NEUT # 10.3 103/ul Critically high 1.4-6.5 [facility] Comment on above: Performed By: #### C BC ####[facility] Mcmcnaoglc1672 [place] [address]DrNeo Smyth Neutrophils/100 WBC (Bld) 76.8 % Critically high 43.0-75.0 [facility] Comment on above: Performed By: #### C BC ####[facility] Kwbfvukjzm9101 [place] [address]DrNeo Smyth Platelet mean volume (Bld) [Entitic vol] 8.8 fL Critically low 9.5-13.5 [facility] Comment on above: Performed By: #### C BC ####[facility] Mdrkzxoama1530 [place] [address]Dr. Tadeo Smyth PLT 438 103/ul Normal 150-450 [facility] Comment on above: Performed By: #### C BC ####[facility] Bbccehkdam3419 [place] [address]Dr. Margotnicole Smyth RBC 4.70 106/ul Normal 4.20-5.40 [facility] Comment on above: Performed By: #### C BC ####[facility] Uxrtmihbgs9596 [place] [address]Dr. Tadeo Smyth WBC 13.4 103/ul Critically high 4.0-11.0 [facility] Comment on above: Performed By: #### C BC ####[facility] Nxyildgtxe5101 [place] [address]Dr. Tadeo Smyth ER URINE PROFILEon 3 Bilirubin Ql (U) Negative Normal NEGATIVE [facility] Comment on above: Performed By: #### Matthew FRANCISCO ICRO ####[facility] Dcgspqxixo4949[address] [place], [place] [address]Dr. Tadeo Smyth Clarity (U) CLEAR Normal CLEAR [facility] Comment on above: Performed By: #### Matthew FRANCISCO UMICRO ####[facility] Ysvegdukvp1081 [place] [address]Dr. Tadeo Smyth Color (U) LT. YELLOW Normal YELLOW [facility] Comment on above: Performed By: #### Matthew FRANCISCO UMICRO ####[facility] Vdygwfryqs6852 [place] [phone]. Tadeo Smyth ERUAHD A micrscopic examina tion will be performed if indicated. Normal [facility] Comment on above: Performed By: #### Matthew FRANCISCO UMICRO ####[facility] Mjhagmxleo0182 [place] [phone]. Tadeo Smyth Glucose Ql (U) Negative Normal NEGATIVE [facility] Comment on above: Performed By: #### SANDRO MERCHANTRO ####[facility] Rzycpwwphc6034 [place] [address]Dr. Tadeo Smyth Hemoglobin Ql (U) TRACE-INTACT Abnormal NEGATIVE [facility] Comment on above: Performed By: #### SANDRO MERCHANTRO ####[facility] Jbqtjscted2217 [place] [address]Dr. Tadeo Smyth Ketones Ql (U) Negative Normal NEGATIVE [facility] Comment on above: Performed By: #### SANDRO MERCHANTRO ####[facility] Feilgrvgft[address] [place], [place] [address]Dr. Tadeo Smyth LEUKOCYTES Negative Normal NEGATIVE [facility] Comment on above: Performed By: #### SANDRO MERCHANTRO ####[facility] Bfxiphites1812[address] [place], [place] [address]Dr. Tadeo Smyth Nitrite Ql (U) Negative Normal NEGATIVE [facility] Comment on above: Performed By: #### SANDRO MERCHANTRO ####[facility] Bhxabuikiy4076[address] [place], [place] [address]Dr. Tadeo Smyth pH (U) 6.5 [pH] Normal 5-9 [facility] Comment on above: Performed By: #### SANDRO MERCHANTRO ####[facility] Pvmqhembdw1469[address] [place], [place] [address]Dr. Tadeo Smyth SPEC GRAVITY 1.020 Normal 1.005-<=1.0 25 [facility] Comment on above: Performed By: #### SANDRO MERCHANTRO ####[facility] Mzijfpjmgt0535[address] [place], [place] [address]Dr. Tadeo Smyth UA PROTEIN Negative Normal NEGATIVE/ TRACE [facility] Comment on above: Performed By: #### SANDRO MERCHANTRO ####[facility] Ogewbnyhfg3115[address] [place], [place] [address]Dr. Tadeo Smyth UR MICRO IND INDICATED Normal [facility] Comment on above: Performed By: #### SANDRO MERCHANTRO ####[facility] Bypubmefra4816[address] [place], [place] [address]Dr. Tadeo Smyth Urobilinogen Qn (U) 0.2 {Benito'U}/dL Normal 0.2 - 1. 0 [facility] Comment on above: Performed By: #### E KARLO FRANCISCO ####[facility] Uvghhwzdvi5485 [place] [address]Dr. Tadeo Smyth LIPASEon 09-14-2022 Lipase [Catalytic activity/Vol] 117.0 U/L Normal 73.0-393.0 [facility] Comment on above: Performed By: #### H STROPN, CMP, LIPA ####[facility] Biqktniwte0397 [place] [address]Dr. Tadeo Smyth PROF 14(COMP METB)on 023 Albumin [Mass/Vol] 3.5 g/dL Normal 3.4-5.0 [facility] Comment on above: Performed By: #### H STROPN, CMP, LIPA ####[facility] Zlhgxjlyhu8396 [place] [address]Dr. Tadeo Smyth Albumin/Globulin [Mass ratio] 0.8 {ratio} Normal [facility] Comment on above: Performed By: #### H STROPN, CMP, LIPA ####[facility] Tpxzorsmtl8657 [place] [address]Dr. Tadeo Smyth ALP [Catalytic activity/Vol] 180 U/L Critically high 46-116 [facility] Comment on above: Performed By: #### H STROPN, CMP, LIPA ####[facility] Hgxlpcbqgm7542 [place] [address]Dr. Tadeo Smyth ALT [Catalytic activity/Vol] 25 U/L Normal 14-59 [facility] Comment on above: Performed By: #### H STROPN, CMP, LIPA ####[facility] Xgastxosol0310 [place] [address]Dr. Tadeo Smyth Anion gap [Moles/Vol] 14.4 mmol/L Normal [facility] Comment on above: Performed By: #### H STROPN, CMP, LIPA ####[facility] Louandnnnz1961 [place] [address]Dr. Tadeo Smyth AST [Catalytic activity/Vol] 14 U/L Critically low 15-37 [facility] Comment on above: Performed By: #### H STROPN, CMP, LIPA ####[facility] Eowogbzlfk9213 [place] [address]Dr. Tadeo Smyth Bilirubin [Mass/Vol] 0.2 mg/dL Normal 0.2-1.0 [facility] Comment on above: Performed By: #### H STROPN, CMP, LIPA ####[facility] Qbmfiezyin7066[address] [place], [place] [address]Dr. Tadeo Smyth Calcium [Mass/Vol] 9.4 mg/dL Normal 8.5-10.1 [facility] Comment on above: Performed By: #### H STROPN, CMP, LIPA ####[facility] Fzezeqqdez0053[address] [place], [place] [address]Dr. Tadeo Smyth Chloride [Moles/Vol] 107 mmol/L Normal 98-107 [facility] Comment on above: Performed By: #### H STROPN, CMP, LIPA ####[facility] Ujgqhemjup36[address] [place], [place] [address]Dr. Tadeo Smyth CO2 [Moles/Vol] 23.9 mmol/L Normal 21.0-32.0 [facility] Comment on above: Performed By: #### H STROPN, CMP, LIPA ####[facility] Yhsisgffmd4572[address] [place], [place] [address]Dr. Tadeo Smyth Creatinine [Mass/Vol] 0.91 mg/dL Normal 0.55-1.02 [facility] Comment on above: Performed By: #### H STROPN, CMP, LIPA ####[facility] Hijhfjqhqm5742[address] [place], [place] [address]Dr. Tadeo Smyth EGFR-AF LITHUANIAN >60 Normal >=60 [facility] Comment on above: Performed By: #### H STROPN, CMP, LIPA ####[facility] Iwqkchoofa6870 [place] [address]Dr. Tadeo Smyth EGFR-NON AF LITHUANIAN >60 Normal >=60 [facility] Comment on above: Performed By: #### H STROPN, CMP, LIPA ####[facility] Fxazmpyxrt7013 [place] [address]Dr. Tadeo Smyth Globulin (S) [Mass/Vol] 4.2 g/dL Normal [facility] Comment on above: Performed By: #### H STROPN, CMP, LIPA ####[facility] Khkouhfhou9958 [place] [address]Dr. Tadeo Smyth Glucose [Mass/Vol] 101 mg/dL Normal 74-106 [facility] Comment on above: Performed By: #### H STROPN, CMP, LIPA ####[facility] Tuyaxastly4242 [place] [address]Dr. Tadeo Smyth Potassium [Moles/Vol] 3.3 mmol/L Critically low 3.5-5.1 [facility] Comment on above: Performed By: #### H STROPN, CMP, LIPA ####[facility] Ougosbwslq0162[address] [place], [place] [address]Dr. Tadeo Smyth Protein [Mass/Vol] 7.7 g/dL Normal 6.4-8.2 [facility] Comment on above: Performed By: #### H STROPN, CMP, LIPA ####[facility] Cimuyntnhf1298[address] [place], [place] [address]Dr. Tadeo Smyth Sodium [Moles/Vol] 142 mmol/L Normal 136-145 [facility] Comment on above: Performed By: #### H STROPN, CMP, LIPA ####[facility] Boaggqwgeh2747 [place] [address]Dr. Tadeo Smyth Urea nitrogen [Mass/Vol] 17.0 mg/dL Normal 7.0-18.0 [facility] Comment on above: Performed By: #### H STROPN, CMP, LIPA ####[facility] Wpyrjsfksv9950 [place] [address]Dr. Tadeo Smyth Urea nitrogen/Creatinine [Mass ratio] 18.7 mg/mg Normal [facility] Comment on above: Performed By: #### H STROPN, CMP, LIPA ####[facility] Wxhumudwwo6981 [place] [address]Dr. Tadeo Smyth TROPONIN, HIGH SENSITIVITYon 09-14-2022 HSTROP 46.6 pg/mL Normal 4.0-51.3 [facility] Comment on above: Result Comment: CUT- OFF POINTS HAVE BEEN ESTABLISHED BASED ON THE FOURTH UNIVERSAL DEFINITIONS OF MYOCARDIALINFARCTION. THE UPPER REFERENCE LIMIT (URL) OF TROPONIN, DEFINED THE 99TH PERCENTILE OFcTnI DISTRIBUTION IN A REFERENCE POPULATION, HAS BEEN CONFIRMED THE DECISION THRESHOLDFOR RI DIAGNOSIS. Performed By: #### H STROPN, CMP, LIPA ####[facility] Uguijzipyr2465 [place] [address]Dr. Tadeo Smyth URINE MICROSCOPIC ONLYon BACTERIA NONE SEEN Normal NONE SEEN [facility] Comment on above: Performed By: #### RANDI MERCHANTICRO ####[facility] Uiveqlagqm05[address] [place], [place] [address]Dr. Tadeo Smyth Bacteria identified Cx Nom (U) NOT INDICATED Normal [facility] Comment on above: Performed By: #### Matthew FRANCISCO UMICRO ####[facility] Xvmkvfzsbt4132[address] [place], [place] [address]Dr. Tadeo Smyth CAST NONE SEEN Normal NONE SEEN [facility] Comment on above: Performed By: #### Matthew FRANCISCO UMICRO ####[facility] Cvkenrgmwc[address] [place], [place] [address]Dr. Tadeo Smyth Crystals LM Nom (Urine sed) NONE SEEN Normal NONE SEEN [facility] Comment on above: Performed By: #### RANDI MERCHANTICRO ####[facility] Nysjekpqxr62[address] [place], [place] [address]Dr. Tadeo Smyth Epithelial cells LM Ql (Urine sed) FEW Abnormal NONE SEEN /RARE [facility] Comment on above: Performed By: #### SANDRO MERCHANTRO ####[facility] Gdnaixdzdq[address] [place], [place] [address]Dr. Tadeo Smyth MUCOUS MODERATE Abnormal NONE SEEN [facility] Comment on above: Performed By: #### SANDRO MERCHANTRO ####[facility] Tdarhlpbes9[address] [place], [place] [address]Dr. Tadeo Smyth RBC 0-2 Normal 0-2 [facility] Comment on above: Performed By: #### KAROL MERCHANT ####[facility] Xlsrorwkld7[address] [place] [id number]. Tadeo Smyth WBC NONE SEEN Normal NONE SEEN [facility] Comment on above: Performed By: #### KAROL MERCHANT ####[facility] Jjprzmyiez[address] [place] [address]Dr. Tadeo Smyth XR ABD FLAT UP_PA Kasey 09-14 XR ABD FLAT UP_PA CH Normal [facility] VC COMP CONSULTATIONon 09-06 VC COMP CONSULTATION Normal [facility] VC VENOUS REFLUX MACARIO LMTon 0 09-06-2022 VC VENOUS REFLUX MACARIO LMT Normal [facility] XR KUB 1 VIEWon 08-18-2022 XR KUB 1 VIEW Normal The [facility] US RUBENS DOP LEG RTon 08-11-20 22 US RUBENS DOP LEG RT Normal [facility] AMYLASEon 08-08-2022 Amylase [Catalytic activity/Vol] 64 U/L Normal 25-115 [facility] Comment on above: Performed By: #### C MP, VIJI, LIPA, CMADM ####[facility] Qhxsxksezi[address] [place] [address]Dr. Tadeo Smyth CARDIAC NORA ADMITon 022 CK [Catalytic activity/Vol] 127 U/L Normal 26-192 [facility] Comment on above: Performed By: #### C MP, VIJI, LIPA, CMADM ####[facility] Zslufbakcr14[address] [place] [id number]. Tadeo Smyth CK.MB [Mass/Vol] 1.71 ng/mL Normal <=3.60 [facility] Comment on above: Performed By: #### C MP, VIJI, LIPA, CMADM ####[facility] Hvfavmtwgq30[address] [place] [address]Dr. Tadeo Smyth HSTROP 36.7 pg/mL Normal 4.0-51.3 [facility] Comment on above: Result Comment: CUT- OFF POINTS HAVE BEEN ESTABLISHED BASED ON THE FOURTH UNIVERSAL DEFINITIONS OF MYOCARDIALINFARCTION. THE UPPER REFERENCE LIMIT (URL) OF TROPONIN, DEFINED THE 99TH PERCENTILE OFcTnI DISTRIBUTION IN A REFERENCE POPULATION, HAS BEEN CONFIRMED THE DECISION THRESHOLDFOR RI DIAGNOSIS. Performed By: #### C VIJI GARCIA LIPA, CMADM ####[facility] Nkyloakivw[address] [place] [address]Dr. Tadeo Smyth AAKASH 23 ng/mL Normal 9-82 [facility] Comment on above: Performed By: #### C VIJI GARCIA LIPA, CMADM ####[facility] Uurcxuvdwt5402 [place] [address]Dr. Tdaeo Smyth CBC AUTO DIFFon 08-08-2022 BASO # 0.0 103/ul Normal 0.0-0.1 [facility] Comment on above: Performed By: #### C BC ####[facility] Nmwwkntryz6[address] [place], [place] [address]Dr. Tadeo Smyth Basophils/100 WBC (Bld) 0.4 % Normal 0.2-2.0 [facility] Comment on above: Performed By: #### C BC ####[facility] Zdhpclzmnv[address] [place], [place] [address]Dr. Tadeo Smyth EO # 0.1 103/ul Normal 0.0-0.7 [facility] Comment on above: Performed By: #### C BC ####[facility] Rbgmoxpvgo90[address] [place], [place] [address]Dr. Tadeo Smyth Eosinophils/100 WBC (Bld) 1.5 % Normal 0.9-7.0 [facility] Comment on above: Performed By: #### C BC ####[facility] Gckotutndf9[address] [place], [place] [address]Dr. Tadeo Smyth Erythrocyte distribution width (RBC) [Ratio] 13.5 % Normal 11.0-15.0 [facility] Comment on above: Performed By: #### C BC ####[facility] Mlwhjijfrk7[address] [place], [place] [address]Dr. Tadeo Smyth Hematocrit (Bld) [Volume fraction] 37.0 % Normal 36.0-48.0 [facility] Comment on above: Performed By: #### C BC ####[facility] Liczcsvxsv5276 [place] [id number]. Tadeo Smyth Hemoglobin (Bld) [Mass/Vol] 12.0 g/dL Normal 12.0-16.0 [facility] Comment on above: Performed By: #### C BC ####[facility] Cvwbonaovr4981 [place] [address]Dr. Tadeo Smyth IG # 0.02 10e3/ul Normal 0.00-0.03 [facility] Comment on above: Performed By: #### C BC ####[facility] Eishqvlvqv8608 [place] [address]Dr. Tadeo Smyth IG % 0.3 % Normal 0.0-0.5 [facility] Comment on above: Performed By: #### C BC ####[facility] Pzektphtdv7637 [place] [address]Dr. Tadeo Haja LYMPH # 2.0 103/ul Normal 1.2-3.8 [facility] Comment on above: Performed By: #### C BC ####[facility] Ihashrvrou9994 [place] [address]Dr. Tadeo Haja Lymphocytes/100 WBC (Bld) 27.9 % Normal 20.5-60.0 [facility] Comment on above: Performed By: #### C BC ####[facility] Ambwfrwhch8877 [place] [address]Dr. Margotnicole Smyth MANUAL DIFF REQ NO Normal [facility] Comment on above: Performed By: #### C BC ####[facility] Neydzkhkoc7020 [place] [address]Dr. Tadeo Smyth MCH (RBC) [Entitic mass] 28.9 pg Normal 26.7-34.0 [facility] Comment on above: Performed By: #### C BC ####[facility] Tqnoplmvmy6748 [place] [address]Dr. Tadeo Haja MCHC (RBC) [Mass/Vol] 32.4 g/dL Normal 29.9-35.2 [facility] Comment on above: Performed By: #### C BC ####[facility] Cfztxzluvf7288 [place] [address]Dr. Tadeo Smyth MCV (RBC) [Entitic vol] 89.2 fL Normal 81.0-99.0 [facility] Comment on above: Performed By: #### C BC ####[facility] Nzfivraevr2193 [place] [address]Dr. Tadeo Smyth MONO # 0.5 103/ul Normal 0.3-0.8 [facility] Comment on above: Performed By: #### C BC ####[facility] Wjkntwltfu3392 [place] [address]Dr. Tadeo Haja Monocytes/100 WBC (Bld) 6.7 % Normal 1.7-12.0 [facility] Comment on above: Performed By: #### C BC ####[facility] Wgxoiftsfc[address] [place], [place] [address]Dr. Tadeo Smyth NEUT # 4.5 103/ul Normal 1.4-6.5 [facility] Comment on above: Performed By: #### C BC ####[facility] Fdfbmlfmuq3234 [place] [id number]. Tadeo Haja Neutrophils/100 WBC (Bld) 63.2 % Normal 43.0-75.0 [facility] Comment on above: Performed By: #### C BC ####[facility] Ootcvlyesj4645 [place] [address]Dr. Tadeo Haja Platelet mean volume (Bld) [Entitic vol] 9.0 fL Critically low 9.5-13.5 [facility] Comment on above: Performed By: #### C BC ####[facility] Giaptdrjmf4613 [place] [address]Dr. Tadeo Haja PLT 382 103/ul Normal 150-450 [facility] Comment on above: Performed By: #### C BC ####[facility] Vikclosips1387 [place] [phone]. Tadeo Smyth RBC 4.15 106/ul Critically low 4.20-5.40 [facility] Comment on above: Performed By: #### C BC ####[facility] Rvdjgjwenr7520 [place] [address]Dr. Tadeo Smyth WBC 7.1 103/ul Normal 4.0-11.0 [facility] Comment on above: Performed By: #### C BC ####[facility] Smhzlcmxnh025[address] [place], [place] [address]Dr. Tadeo Smyth CT ABD/PELV W CONon 08-08-[address] ABD/PELV W CON Normal [facility] ER URINE PROFILEon 2 Bilirubin Ql (U) Negative Normal NEGATIVE [facility] Comment on above: Performed By: #### RANDI MERCHANTICRO ####[facility] Cisabluccs28[address] [place], [place] [address]Dr. Tadeo Smyth Clarity (U) CLEAR Normal CLEAR [facility] Comment on above: Performed By: #### RANDI MERCHANTICRO ####[facility] Qdcjessvnm417[address] [place], [place] [address]Dr. Tadeo Smyth Color (U) YELLOW Normal YELLOW [facility] Comment on above: Performed By: #### Matthew FRANCISCO UMICRO ####[facility] Llnfjahtol7[address] [place], [place] [address]Dr. Tadeo CAMARGOD A micrscopic examina tion will be performed if indicated. Normal [facility] Comment on above: Performed By: #### Matthew FRANCISCO UMICRO ####[facility] Zddpcyvnnm5250[address] [place], [place] [address]Dr. Tadeo Smyth Glucose Ql (U) Negative Normal NEGATIVE [facility] Comment on above: Performed By: #### Matthew FRANCISCO UMICRO ####[facility] Nwzjlxczox7787[address] [place], [place] [address]Dr. Tadeo Smyth Hemoglobin Ql (U) TRACE-LYSED Abnormal NEGATIVE The [facility] Comment on above: Performed By: #### Matthew FRANCISCO UMICRO ####[facility] Vcdtyuywey8163[address] [place], [place] [address]Dr. Tadeo Smyth Ketones Ql (U) TRACE Abnormal NEGATIVE [facility] Comment on above: Performed By: #### SANDRO MERCHANTRO ####[facility] Pkmmryqlvy38[address] [place] [address]Dr. Tadeo Smyth LEUKOCYTES Negative Normal NEGATIVE [facility] Comment on above: Performed By: #### SANDRO MERCHANTRO ####[facility] Enxbwswnzn0368 [place] [address]Dr. Tadeo Smyth Nitrite Ql (U) Negative Normal NEGATIVE [facility] Comment on above: Performed By: #### SANDRO MERCHANTRO ####[facility] Fldjdgfgfs5775 [place] [address]Dr. Tadeo Smyth pH (U) 6.0 [pH] Normal 5-9 [facility] Comment on above: Performed By: #### SANDRO MERCHANTRO ####[facility] Ouyykgjnyy98[address] [place], [place] [address]Dr. Tadeo Smyth SPEC GRAVITY >=1.030 Abnormal 1.005-<=1.0 25 [facility] Comment on above: Performed By: #### SANDRO MERCHANTRO ####[facility] Esdgyqfulm01[address] [place], [place] [address]Dr. Tadeo Smyth UA PROTEIN TRACE Normal NEGATIVE/ TRACE [facility] Comment on above: Performed By: #### SANDRO MERCHANTRO ####[facility] Djxsoqflgy0462 [place] [address]Dr. Tadeo Smyth UR MICRO IND INDICATED Normal [facility] Comment on above: Performed By: #### SANDRO MERCHANTRO ####[facility] Slxzjhljoy5[address] [place], [place] [address]Dr. Tadeo Smyth Urobilinogen Qn (U) 0.2 {Benito'U}/dL Normal 0.2 - 1. 0 [facility] Comment on above: Performed By: #### SANDRO MERCHANTRO ####[facility] Mwdhnacetc[address] [place], [place] [address]Dr. Tadeo Smyth LACTATE/LACTIC ACIDon 2021 Lactate [Moles/Vol] 1.3 mmol/L Normal 0.4-1.9 [facility] Comment on above: Performed By: #### L ACT ####[facility] Eteixwmkrn[address] [place] [address]Dr. Tadeo Smyth LIPASEon 08-08-2022 Lipase [Catalytic activity/Vol] 120.0 U/L Normal 73.0-393.0 [facility] Comment on above: Performed By: #### C MP, VIJI, LIPA, CMADM ####[facility] Ejchraphss3906 [place] [address]Dr. Tadeo Smyth PROF 14(COMP METB)on 022 Albumin [Mass/Vol] 3.8 g/dL Normal 3.4-5.0 [facility] Comment on above: Performed By: #### C MP, VIJI, LIPA, CMADM ####[facility] Xpazdcyars7108 [place] [address]Dr. Tadeo Smyth Albumin/Globulin [Mass ratio] 1.1 {ratio} Normal [facility] Comment on above: Performed By: #### C MP, VIJI, LIPA, CMADM ####[facility] Looppochct[address]01 [place] [address]Dr. Tadeo Smyth ALP [Catalytic activity/Vol] 145 U/L Critically high 46-116 [facility] Comment on above: Performed By: #### C MP, VIJI, LIPA, CMADM ####[facility] Ylpzmnbftx7955 [place] [address]Dr. Tadeo Smyth ALT [Catalytic activity/Vol] 30 U/L Normal 14-59 [facility] Comment on above: Performed By: #### C MP, VIJI, LIPA, CMADM ####[facility] Saazakuwxp3691 [place] [address]Dr. Tadeo Smyth Anion gap [Moles/Vol] 11.5 mmol/L Normal [facility] Comment on above: Performed By: #### C MP, VIJI, LIPA, CMADM ####[facility] Asskbvvwft8791 [place] [address]Dr. Tadeo Smyth AST [Catalytic activity/Vol] 17 U/L Normal 15-37 [facility] Comment on above: Performed By: #### C MP, VIJI, LIPA, CMADM ####[facility] Bjwlghwhov8552 [place] [address]Dr. Tadeo Smyth Bilirubin [Mass/Vol] 0.1 mg/dL Critically low 0.2-1.0 [facility] Comment on above: Performed By: #### C MP, VIJI, LIPA, CMADM ####[facility] Ytftygkgwf4148 [place] [address]Dr. Tadeo Smyth Calcium [Mass/Vol] 8.9 mg/dL Normal 8.5-10.1 [facility] Comment on above: Performed By: #### C MP, VIJI, LIPA, CMADM ####[facility] Xvhmfnnoid[address] [place], [place] [address]Dr. Tadeo Smyth Chloride [Moles/Vol] 104 mmol/L Normal 98-107 [facility] Comment on above: Performed By: #### C MP, VIJI, LIPA, CMADM ####[facility] Wqepjjhsvm[address] [place], [place] [address]Dr. Tadeo Smyth CO2 [Moles/Vol] 27.2 mmol/L Normal 21.0-32.0 [facility] Comment on above: Performed By: #### C MP, VIJI, LIPA, CMADM ####[facility] Hpomagdbbc6601 [place] [address]Dr. Tadeo Smyth Creatinine [Mass/Vol] 0.90 mg/dL Normal 0.55-1.02 [facility] Comment on above: Performed By: #### C MP, VIJI, LIPA, CMADM ####[facility] Lflchdpfod5319 [place] [address]Dr. Yilan Smyth EGFR-AF LITHUANIAN >60 Normal >=60 [facility] Comment on above: Performed By: #### C MP, VIJI, LIPA, CMADM ####[facility] Ctshbdqgkr0153 [place] [address]Dr. Yilan Smyth EGFR-NON AF LITHUANIAN >60 Normal >=60 [facility] Comment on above: Performed By: #### C MP, VIJI, LIPA, CMADM ####[facility] Ljjregpxbt5710 [place] [address]Dr. Tadeo Smyth Globulin (S) [Mass/Vol] 3.5 g/dL Normal [facility] Comment on above: Performed By: #### C MP, VIJI, LIPA, CMADM ####[facility] Dsuptdagcg6299 [place] [address]Dr. Margotlan Smyth Glucose [Mass/Vol] 98 mg/dL Normal 74-106 [facility] Comment on above: Performed By: #### C MP, VIJI, LIPA, CMADM ####[facility] Videcgmose9474 [place] [address]Dr. Margotlan Smyth Potassium [Moles/Vol] 3.7 mmol/L Normal 3.5-5.1 [facility] Comment on above: Performed By: #### C MP, VIJI, LIPA, CMADM ####[facility] Fadyzpyjlv3393 [place] [address]Dr. Margotlan Smyth Protein [Mass/Vol] 7.3 g/dL Normal 6.4-8.2 [facility] Comment on above: Performed By: #### C MP, VIJI, LIPA, CMADM ####[facility] Vyqgmopvdp8954 [place] [address]Dr. Margotlan Smyth Sodium [Moles/Vol] 139 mmol/L Normal 136-145 [facility] Comment on above: Performed By: #### C MP, VIJI, LIPA, CMADM ####[facility] Ilavhgkwzg9550 [place] [address]Dr. Margotlan Smyth Urea nitrogen [Mass/Vol] 25.0 mg/dL Critically high 7.0-18.0 [facility] Comment on above: Performed By: #### C MP, VIJI, LIPA, CMADM ####[facility] Cqegmbzhfn9618 [place] [address]Dr. Tadeo Smyth Urea nitrogen/Creatinine [Mass ratio] 27.8 mg/mg Normal [facility] Comment on above: Performed By: #### C MP, VIJI, LIPA, CMADM ####[facility] Zbvizgddiy4075 [place] [address]Dr. Tadeo Smyth URINE MICROSCOPIC ONLYon BACTERIA NONE SEEN Normal NONE SEEN [facility] Comment on above: Performed By: #### SANDRO MERCHANTRO ####[facility] Uhymjmokur0995 [place] [address]Dr. Tadeo Smyth Bacteria identified Cx Nom (U) NOT INDICATED Normal [facility] Comment on above: Performed By: #### SANDRO MERCHANTRO ####[facility] Qavmrnvneq7181 [place] [address]Dr. Tadeo Smyth CAST NONE SEEN Normal NONE SEEN [facility] Comment on above: Performed By: #### SANDRO MERCHANTRO ####[facility] Dnmqrnonfz04[address] [place], [place] [address]Dr. Tadeo Smyth Crystals LM Nom (Urine sed) NONE SEEN Normal NONE SEEN [facility] Comment on above: Performed By: #### SANDRO MERCHANTRO ####[facility] Ifpzygnmwn3686[address] [place], [place] [address]Dr. Tadeo Smyth Epithelial cells LM Ql (Urine sed) FEW Abnormal NONE SEEN /RARE [facility] Comment on above: Performed By: #### SANDRO MERCHANTRO ####[facility] Xnzwuydonc7658[address] [place], [place] [address]Dr. Tadeo Smyth MUCOUS NONE SEEN Normal NONE SEEN [facility] Comment on above: Performed By: #### SANDRO MERCHANTRO ####[facility] Ngnwcqprgk488[address] [place], [place] [address]Dr. Tadeo Smyth RBC 2-5 Abnormal 0-2 [facility] Comment on above: Performed By: #### SANDRO MERCHANTRO ####[facility] Ncpatjmyrj466[address] [place], [place] [address]Dr. Tadeo Smyth WBC NONE SEEN Normal NONE SEEN [facility] Comment on above: Performed By: #### SANDRO MERCHANTRO ####[facility] Eoutiricxx9043[address] [place], [place] [address]Dr. Tadeo Smyth AMYLASEon 07-21-2022 Amylase [Catalytic activity/Vol] 49 U/L Normal 25-115 [facility] Comment on above: Performed By: #### L ISABEL, VIJI, CMP ####[facility] Iwmtbnirxw3014 [place] [address]Dr. Tadeo Smyth CBC AUTO DIFFon 07-21-2022 BASO # 0.0 103/ul Normal 0.0-0.1 [facility] Comment on above: Performed By: #### C BC ####[facility] Dwumjabofa5925[address] [place], [place] [address]Dr. Tadeo Smyth Basophils/100 WBC (Bld) 0.6 % Normal 0.2-2.0 [facility] Comment on above: Performed By: #### C BC ####[facility] Zxbmemldyr5647[address] [place], [place] [address]Dr. Tadeo Smyth EO # 0.2 103/ul Normal 0.0-0.7 [facility] Comment on above: Performed By: #### C BC ####[facility] Gtzzuebsnl0589[address] [place], [place] [address]Dr. Tadeo Smyth Eosinophils/100 WBC (Bld) 3.1 % Normal 0.9-7.0 [facility] Comment on above: Performed By: #### C BC ####[facility] Vqswynddfg315[address] [place], [place] [address]Dr. Tadeo Smyth Erythrocyte distribution width (RBC) [Ratio] 13.2 % Normal 11.0-15.0 [facility] Comment on above: Performed By: #### C BC ####[facility] Nerbyrnrks5543[address] [place], [place] [address]Dr. Tadeo Smyth Hematocrit (Bld) [Volume fraction] 35.7 % Critically low 36.0-48.0 [facility] Comment on above: Performed By: #### C BC ####[facility] Fjiluiutxf[address] [place], [place] [address]Dr. Tadeo Smyth Hemoglobin (Bld) [Mass/Vol] 11.6 g/dL Critically low 12.0-16.0 [facility] Comment on above: Performed By: #### C BC ####[facility] Edtkaoiuam1726 [place] [id number]. Tadeo Smyth IG # 0.01 10e3/ul Normal 0.00-0.03 [facility] Comment on above: Performed By: #### C BC ####[facility] Aufsczgxsj1013 [place] [id number]. Tadeo Smyth IG % 0.2 % Normal 0.0-0.5 [facility] Comment on above: Performed By: #### C BC ####[facility] Jkemtnqboj3107 [place] [address]Dr. Tadeo Smyth LYMPH # 1.9 103/ul Normal 1.2-3.8 [facility] Comment on above: Performed By: #### C BC ####[facility] Khcuxsunxv4654 [place] [address]Dr. Margotnicole Smyth Lymphocytes/100 WBC (Bld) 34.8 % Normal 20.5-60.0 [facility] Comment on above: Performed By: #### C BC ####[facility] Vnbbjqcfqt4044 [place] [address]Dr. Tadeo Smyth MANUAL DIFF REQ NO Normal [facility] Comment on above: Performed By: #### C BC ####[facility] Ttzipawxpf4464 [place] [address]Dr. Tadeo Smyth MCH (RBC) [Entitic mass] 29.1 pg Normal 26.7-34.0 [facility] Comment on above: Performed By: #### C BC ####[facility] Yetobrxeqt6595 [place] [address]Dr. Tadeo Smyth MCHC (RBC) [Mass/Vol] 32.5 g/dL Normal 29.9-35.2 [facility] Comment on above: Performed By: #### C BC ####[facility] Hocqzwslwt6422 [place] [address]Dr. Tadeo Smyth MCV (RBC) [Entitic vol] 89.7 fL Normal 81.0-99.0 [facility] Comment on above: Performed By: #### C BC ####[facility] Mafvwtmnds4088 [place] [address]Dr. Tadeo Smyth MONO # 0.3 103/ul Normal 0.3-0.8 [facility] Comment on above: Performed By: #### C BC ####[facility] Oaxyytqxjo0669 [place] [address]Dr. Tadeo Smyth Monocytes/100 WBC (Bld) 6.1 % Normal 1.7-12.0 [facility] Comment on above: Performed By: #### C BC ####[facility] Envhfuwkqc4065 [place] [address]Dr. Tadeo Smyth NEUT # 3.0 103/ul Normal 1.4-6.5 [facility] Comment on above: Performed By: #### C BC ####[facility] Tjnpsfszmv3288 [place] [address]Dr. Tadeo Smyth Neutrophils/100 WBC (Bld) 55.2 % Normal 43.0-75.0 [facility] Comment on above: Performed By: #### C BC ####[facility] Khtdfmavsm4111 [place] [address]Dr. Tadeo Smyth Platelet mean volume (Bld) [Entitic vol] 9.0 fL Critically low 9.5-13.5 [facility] Comment on above: Performed By: #### C BC ####[facility] Xctwxahosc0351 [place] [address]Dr. Tadeo Smyth PLT 358 103/ul Normal 150-450 [facility] Comment on above: Performed By: #### C BC ####[facility] Bwctymmlho6792 [place] [address]Dr. Tadeo Smyth RBC 3.98 106/ul Critically low 4.20-5.40 [facility] Comment on above: Performed By: #### C BC ####[facility] Qlefgalabv7537 [place] [address]Dr. Tadeo Smyth WBC 5.4 103/ul Normal 4.0-11.0 [facility] Comment on above: Performed By: #### C BC ####[facility] M[address]zjrdvl[address] [place], [place] [address]Dr. Tadeo Smyth LIPASEon 07-21-2022 Lipase [Catalytic activity/Vol] 54.0 U/L Critically low 73.0-393.0 [facility] Comment on above: Performed By: #### L VIJI HALL, CMP ####[facility] Qguuikmooj5637 [place] [address]Dr. Tadeo Smyth PROF 14(COMP METB)on 022 Albumin [Mass/Vol] 3.5 g/dL Normal 3.4-5.0 [facility] Comment on above: Performed By: #### L VIJI HALL, CMP ####[facility] Cxhkxjawdr4145 [place] [address]Dr. Tadeo Smyth Albumin/Globulin [Mass ratio] 0.9 {ratio} Normal [facility] Comment on above: Performed By: #### L VIJI HALL, CMP ####[facility] Vfvoddmkja0375 [place] [address]Dr. Tadeo Smyth ALP [Catalytic activity/Vol] 127 U/L Critically high 46-116 [facility] Comment on above: Performed By: #### L VIJI HALL, CMP ####[facility] Zbskytfeuh9549 [place] [address]Dr. Tadeo Smyth ALT [Catalytic activity/Vol] 16 U/L Normal 14-59 [facility] Comment on above: Performed By: #### L VIJI HALL, CMP ####[facility] Arxiwpelhq8801 [place] [address]Dr. Tadeo Smyth Anion gap [Moles/Vol] 10.6 mmol/L Normal [facility] Comment on above: Performed By: #### L VIJI HALL, CMP ####[facility] Eafhktzjja9390 [place] [address]Dr. Tadeo Smyth AST [Catalytic activity/Vol] 16 U/L Normal 15-37 [facility] Comment on above: Performed By: #### L VIJI HALL, CMP ####[facility] [address] [place] [address]Dr. Tadeo Smyth Bilirubin [Mass/Vol] 0.3 mg/dL Normal 0.2-1.0 [facility] Comment on above: Performed By: #### L VIJI HALL, CMP ####[facility] Orsejduoyn[address] [place] [address]Dr. Tadeo Smyth Calcium [Mass/Vol] 9.1 mg/dL Normal 8.5-10.1 [facility] Comment on above: Performed By: #### L VIJI HALL, CMP ####[facility] Cphbrnespx[address] [place], [place] [address]Dr. Margotnicole Smyth Chloride [Moles/Vol] 104 mmol/L Normal 98-107 [facility] Comment on above: Performed By: #### L VIJI HALL, CMP ####[facility] Wumpapgibt[address] [place], [place] [address]Dr. Margotnicole Smyth CO2 [Moles/Vol] 28.0 mmol/L Normal 21.0-32.0 [facility] Comment on above: Performed By: #### L VIJI HALL, CMP ####[facility] Rpqqgjasku[address] [place], [place] [address]Dr. Tadeo Smyth Creatinine [Mass/Vol] 0.96 mg/dL Normal 0.55-1.02 [facility] Comment on above: Performed By: #### L VIJI HALL, CMP ####[facility] Hyzbulylfo[address] [place], [place] [address]Dr. Tadeo Smyth EGFR-AF LITHUANIAN >60 Normal >=60 [facility] Comment on above: Performed By: #### L VIJI HALL, CMP ####[facility] Homvzzdphk[address] [place], [place] [address]Dr. Tadeo Smyth EGFR-NON AF LITHUANIAN >60 Normal >=60 [facility] Comment on above: Performed By: #### L VIJI HALL, CMP ####[facility] Qjqowbufkh9970[address] [place], [place] [address]Dr. Tadeo Smyth Globulin (S) [Mass/Vol] 3.8 g/dL Normal [facility] Comment on above: Performed By: #### L VIJI HALL, CMP ####[facility] Xdfaioqtix98[address] [place], [place] [address]Dr. Tadeo Smyth Glucose [Mass/Vol] 93 mg/dL Normal 74-106 The [facility] [place] Comment on above: Performed By: #### L VIJI HLAL, CMP ####[facility] Mliqwmnyou[address] [place] [address]Dr. Tadeo Smyth Potassium [Moles/Vol] 3.6 mmol/L Normal 3.5-5.1 [facility] Comment on above: Performed By: #### L VIJI HALL, CMP ####[facility] Qfoffkvpno10[address] [place] [address]Dr. Tadeo Smyth Protein [Mass/Vol] 7.3 g/dL Normal 6.4-8.2 [facility] [place] Comment on above: Performed By: #### L VIJI HALL, CMP ####[facility] Cuxwlgdkyp[address] [place] [address]Dr. Tadeo Smyth Sodium [Moles/Vol] 139 mmol/L Normal 136-145 The [facility] [place] Comment on above: Performed By: #### L VIJI HALL, CMP ####[facility] Ocdhbmwvdk3[address] [place] [address]Dr. Tadeo Smyth Urea nitrogen [Mass/Vol] 16.0 mg/dL Normal 7.0-18.0 [facility] Comment on above: Performed By: #### L VIJI HALL, CMP ####[facility] [address]zdcnccusx8[address] [place] [id number]. Tadeo Smyth Urea nitrogen/Creatinine [Mass ratio] 16.7 mg/mg Normal [facility] Comment on above: Performed By: #### L VIJI HALL, CMP ####[facility] Yykmqzivxd364[address] [place] [address]Dr. Tadeo Smyth XR ABD FLAT UP_PA Kasey 07-21 XR ABD FLAT UP_PA CH Normal [facility] CULTURE URINEon 07-10-2022 CULTURE URINE Normal The [facility] Comment on above: Performed By: #### U RCX ####[facility] Qolayctnnp[address] [place] [address]Dr. Tadeo Smyth INSULINon 07-09-2022 Insulin 15.9 uIU/mL Normal 2.6-24.9 [facility] Comment on above: Performed By: #### I NSULIN ####[facility] Cuhxbosuke[address] [place] [address]Dr. Tadeo Haja CBC AUTO DIFFon 07-08-2022 BASO # 0.0 103/ul Normal 0.0-0.1 [facility] Comment on above: Performed By: #### C BC ####[facility] Uygepnpknh64[address] [place], [place] [address]Dr. Tadeo Smyth Basophils/100 WBC (Bld) 0.6 % Normal 0.2-2.0 [facility] Comment on above: Performed By: #### C BC ####[facility] Sxpetogmwz64[address] [place], [place] [address]Dr. Tadeo Smyth EO # 0.2 103/ul Normal 0.0-0.7 [facility] Comment on above: Performed By: #### C BC ####[facility] Wcdsfipcbx[address] [place], [place] [address]Dr. Margotnicole Smyth Eosinophils/100 WBC (Bld) 3.4 % Normal 0.9-7.0 [facility] Comment on above: Performed By: #### C BC ####[facility] Newjvngapw00[address] [place], [place] [address]Dr. Tadeo Haja Erythrocyte distribution width (RBC) [Ratio] 13.1 % Normal 11.0-15.0 [facility] Comment on above: Performed By: #### C BC ####[facility] Tdtutkbcwz[address] [place], [place] [address]Dr. Margotnicole Smyth Hematocrit (Bld) [Volume fraction] 42.4 % Normal 36.0-48.0 [facility] Comment on above: Performed By: #### C BC ####[facility] Zwxcopkvqj[address] [place], [place] [address]Dr. Margotnicole Smyth Hemoglobin (Bld) [Mass/Vol] 13.7 g/dL Normal 12.0-16.0 [facility] Comment on above: Performed By: #### C BC ####[facility] Rxtwjrpicc3[address] [place], [place] [address]DrNeo Smyth IG # 0.01 10e3/ul Normal 0.00-0.03 [facility] Comment on above: Performed By: #### C BC ####[facility] Vvvnyrmiud[address] [place] [address]DrNeo Smyth IG % 0.2 % Normal 0.0-0.5 [facility] Comment on above: Performed By: #### C BC ####[facility] Wfhkaktiah7[address] [place] [address]DrNeo Smyth LYMPH # 2.1 103/ul Normal 1.2-3.8 [facility] Comment on above: Performed By: #### C BC ####[facility] Emsvzufhwc35[address] [place], [place] [address]DrNeo Smyth Lymphocytes/100 WBC (Bld) 41.2 % Normal 20.5-60.0 [facility] Comment on above: Performed By: #### C BC ####[facility] Zmahhizvkn[address] [place], [place] [address]DrNeo Smyth MANUAL DIFF REQ NO Normal [facility] Comment on above: Performed By: #### C BC ####[facility] Zixttczmgs[address] [place], [place] [address]DrNeo Smyth MCH (RBC) [Entitic mass] 28.8 pg Normal 26.7-34.0 [facility] Comment on above: Performed By: #### C BC ####[facility] Dxvathfvqp5594[address] [place], [place] [address]DrNeo Smyth MCHC (RBC) [Mass/Vol] 32.3 g/dL Normal 29.9-35.2 [facility] Comment on above: Performed By: #### C BC ####[facility] Eljnqbidkj[address] [place] [address]DrNeo Smyth MCV (RBC) [Entitic vol] 89.3 fL Normal 81.0-99.0 [facility] Comment on above: Performed By: #### C BC ####[facility] Nuzdzznwbq9[address] [place], [place] [address]DrNeo Smyth MONO # 0.4 103/ul Normal 0.3-0.8 [facility] Comment on above: Performed By: #### C BC ####[facility] Uwikthgolm22[address] [place] [id number]. Tadeo Smyth Monocytes/100 WBC (Bld) 8.1 % Normal 1.7-12.0 [facility] Comment on above: Performed By: #### C BC ####[facility] Vtvwiqojar6[address] [place] [address]Dr. Tadeo Smyth NEUT # 2.4 103/ul Normal 1.4-6.5 [facility] Comment on above: Performed By: #### C BC ####[facility] Vpnofxevpa475[address] [place] [address]Dr. Tadeo Smyth Neutrophils/100 WBC (Bld) 46.5 % Normal 43.0-75.0 [facility] Comment on above: Performed By: #### C BC ####[facility] Osefgktnff34[address] [place] [address]Dr. Tadeo Smyth Platelet mean volume (Bld) [Entitic vol] 9.3 fL Critically low 9.5-13.5 [facility] Comment on above: Performed By: #### C BC ####[facility] Dpmimeyphr5[address] [place] [address]Dr. Tadeo Smyth PLT 443 103/ul Normal 150-450 [facility] Comment on above: Performed By: #### C BC ####[facility] Fznexawsuw76[address] [place] [address]Dr. Tadeo Smyth RBC 4.75 106/ul Normal 4.20-5.40 [facility] Comment on above: Performed By: #### C BC ####[facility] Patmyxnuce[address] [place] [address]Dr. Tadeo Smyth WBC 5.1 103/ul Normal 4.0-11.0 [facility] Comment on above: Performed By: #### C BC ####[facility] Zzpgolqysr86[address] [place] [address]DrNeo Tadeo Smyth FREE THYROXINE INDEX T7on FTI 2.91 Normal 1.30-4.50 [facility] Comment on above: Performed By: #### T 7, LIPID, TSH, CMP ####[facility] Yctdmxjogg9[address] [place] [address]Dr. Tadeo Smyth T3U 31.0 % Normal 30.0-39.0 [facility] Comment on above: Performed By: #### T 7, LIPID, TSH, CMP ####[facility] Collqfjodg2[address] [place] [address]Dr. Tadeo Smyth T4 [Mass/Vol] 9.40 ug/dL Normal 4.80-13.90 [facility] Comment on above: Performed By: #### T 7, LIPID, TSH, CMP ####[facility] Agxyndbmbl[address] [place] [address]Dr. Tadeo Smyth GLYCOHEMOGLOBIN A1Con 2021 ADA RECOMMENDATION SEE BELOW Normal The [facility] Comment on above: Result Comment: ADA RECOMMENDED LIMIT 4.0 - 6.0 ADA THERAPEUTIC TARGET < 7.0 ACTION SUGGESTED > 7.0 Performed By: #### A 1C ####[facility] Wfmbeaptzg16[address] [place] [address]Dr. Margotnicole Smyth Glucose [Mass/Vol] 120 mg/dL Normal The [facility] [place] Comment on above: Performed By: #### A 1C ####[facility] Jfdzozjtnj78[address] [place] [phone]. Tadeo Smyth HbA1c (Bld) [Mass fraction] 5.8 % Normal 4.5-6.2 [facility] Comment on above: Performed By: #### A 1C ####[facility] Nzbqhcbtso9274 [place] [phone]. Tadeo Smyth IRONon 07-08-2022 Iron [Mass/Vol] 59.0 ug/dL Normal 50.0-170.0 [facility] Comment on above: Performed By: #### I KEEGAN ####[facility] Hdkngdblsg70[address] [place] [phone]. Margotnicole Smyth LIPID PROFILEon 07-08-2022 CHOL-HDL RATIO NORM SEE BELOW Normal [facility] Comment on above: Result Comment: 3.3 - 4.4 LOW RISK 4.4 - 7.1 AVERAGE RISK 7.1 - 11.0 MODERATE RISK >11.0 HIGH RISK Performed By: #### T 7, LIPID, TSH, CMP ####[facility] [address]kluxqj[address] [place], [place] [address]Iq. Tadeo Smyth Cholesterol [Mass/Vol] 227 mg/dL Critically high <=200 [facility] Comment on above: Performed By: #### T 7, LIPID, TSH, CMP ####[facility] Nzvdfolctc66[address] [place] [phone]. Margotlan Smyth Cholesterol in HDL [Mass/Vol] 67 mg/dL Critically high 40-60 [facility] Comment on above: Performed By: #### T 7, LIPID, TSH, CMP ####[facility] Kbeipyifel[address] [place] [address]Dr. Tadeo Smyth Cholesterol in LDL [Mass/Vol] 139.0 mg/dL Normal [facility] Comment on above: Performed By: #### T 7, LIPID, TSH, CMP ####[facility] Rdotfzxkjs6552 [place] [address]Dr. Tadeo Smyth Cholesterol.total/Cho lesterol in HDL [Mass ratio] 3.4 {ratio} Normal [facility] Comment on above: Performed By: #### T 7, LIPID, TSH, CMP ####[facility] Ewppyveupq16[address] [place] [phone]. Margotlan Smyth HDL NORMAL > or = 60 mg/dl - LO W CARDIOVASCULAR RISK <40 mg/dl - HIGH CARDIOVASCULAR RISK Normal [facility] Comment on above: Performed By: #### T 7, LIPID, TSH, CMP ####[facility] Jytlkddefr88[address] [place] [phone]. Margotlan Smyth LDL CALC NORMAL SEE BELOW Normal [facility] Comment on above: Result Comment: <100 mg/dl OPTIMAL 100 - 129 mg/dl NEAR OR ABOVE OPTIMAL 130 - 159 mg/dl BORDERLINE HIGH 160 - 189 mg/dl HIGH >190 mg/dl VERY HIGH Performed By: #### T 7, LIPID, TSH, CMP ####[facility] Gieejnsvid0459 [place] [phone]. Tadeo Smyth Triglyceride [Mass/Vol] 105 mg/dL Normal <=150 [facility] Comment on above: Performed By: #### T 7, LIPID, TSH, CMP ####[facility] Oztwzfnzbx6430 [place] [phone]. Tadeo Smyth VLDL CALC 21.0 mg/dL Normal [facility] Comment on above: Performed By: #### T 7, LIPID, TSH, CMP ####[facility] Ueamuiixub1704 [place] [phone]. Tadeo Smyth OCC BLD IMMUNO SCREENon OCCULT BLOOD Negative Normal NEGATIVE [facility] Comment on above: Performed By: #### O BSCRN ####[facility] Mhjbtrzpai[address] [place] [address]Dr. Tadeo Smyth PROF 14(COMP METB)on 022 Albumin [Mass/Vol] 3.7 g/dL Normal 3.4-5.0 [facility] Comment on above: Performed By: #### T 7, LIPID, TSH, CMP ####[facility] Tvndyrxond3201 [place] [address]Dr. Tadeo Smyth Albumin/Globulin [Mass ratio] 0.8 {ratio} Normal [facility] Comment on above: Performed By: #### T 7, LIPID, TSH, CMP ####[facility] Ddyzknvuzj7[address] [place] [address]Dr. Tadeo Smyth ALP [Catalytic activity/Vol] 141 U/L Critically high 46-116 [facility] Comment on above: Performed By: #### T 7, LIPID, TSH, CMP ####[facility] Pcuhuycodd87[address] [place] [address]Dr. Tadeo Smyth ALT [Catalytic activity/Vol] 23 U/L Normal 14-59 [facility] Comment on above: Performed By: #### T 7, LIPID, TSH, CMP ####[facility] Knsmwgysat[address] [place] [address]Dr. Tadeo Smyth Anion gap [Moles/Vol] 9.8 mmol/L Normal [facility] Comment on above: Performed By: #### T 7, LIPID, TSH, CMP ####[facility] Tbjyigcika35[address] [place] [address]Dr. Tadeo Smyth AST [Catalytic activity/Vol] 13 U/L Critically low 15-37 [facility] Comment on above: Performed By: #### T 7, LIPID, TSH, CMP ####[facility] Ucxchvpspa[address] [place], [place] [address]Dr. Tadeo Smyth Bilirubin [Mass/Vol] 0.4 mg/dL Normal 0.2-1.0 [facility] Comment on above: Performed By: #### T 7, LIPID, TSH, CMP ####[facility] Xeepzcusjg0163[address] [place], [place] [address]Dr. Tadeo Smyth Calcium [Mass/Vol] 10.2 mg/dL Critically high 8.5-10.1 [facility] Comment on above: Performed By: #### T 7, LIPID, TSH, CMP ####[facility] Ckpgjxmbwr8836[address] [place], [place] [address]Dr. Tadeo Smyth Chloride [Moles/Vol] 101 mmol/L Normal 98-107 [facility] Comment on above: Performed By: #### T 7, LIPID, TSH, CMP ####[facility] Zjagquvzem17[address] [place], [place] [address]Dr. Tadeo Smyth CO2 [Moles/Vol] 32.8 mmol/L Critically high 21.0-32.0 [facility] Comment on above: Performed By: #### T 7, LIPID, TSH, CMP ####[facility] Gmlvezzedn6632[address] [place], [place] [address]Dr. Tadeo Smyth Creatinine [Mass/Vol] 0.92 mg/dL Normal 0.55-1.02 [facility] Comment on above: Performed By: #### T 7, LIPID, TSH, CMP ####[facility] Umvrzdtytn3387[address] [place], [place] [address]Dr. Tadeo Smyth EGFR-AF LITHUANIAN >60 Normal >=60 [facility] Comment on above: Performed By: #### T 7, LIPID, TSH, CMP ####[facility] Jddmxgixfp3[address] [place] [address]Dr. Tadeo Smyth EGFR-NON AF LITHUANIAN >60 Normal >=60 [facility] Comment on above: Performed By: #### T 7, LIPID, TSH, CMP ####[facility] Offexwjgoi8542 [place] [address]Dr. Tadeo Smyth Globulin (S) [Mass/Vol] 4.8 g/dL Normal [facility] Comment on above: Performed By: #### T 7, LIPID, TSH, CMP ####[facility] Brupvsowly2[address] [place] [address]Dr. Tadeo Smyth Glucose [Mass/Vol] 114 mg/dL Critically high 74-106 [facility] Comment on above: Performed By: #### T 7, LIPID, TSH, CMP ####[facility] Pderzuwotb1833 [place] [address]Dr. Tadeo Smyth Potassium [Moles/Vol] 3.6 mmol/L Normal 3.5-5.1 [facility] Comment on above: Performed By: #### T 7, LIPID, TSH, CMP ####[facility] Aufskejtgu50[address] [place], [place] [address]Dr. Tadeo Smyth Protein [Mass/Vol] 8.5 g/dL Critically high 6.4-8.2 [facility] Comment on above: Performed By: #### T 7, LIPID, TSH, CMP ####[facility] Lbrcnmpfla36[address] [place] [address]Dr. Tadeo Smyth Sodium [Moles/Vol] 140 mmol/L Normal 136-145 [facility] Comment on above: Performed By: #### T 7, LIPID, TSH, CMP ####[facility] Rspmtjyaqm4084[address] [place], [place] [address]Dr. Tadeo Smyth Urea nitrogen [Mass/Vol] 23.0 mg/dL Critically high 7.0-18.0 [facility] Comment on above: Performed By: #### T 7, LIPID, TSH, CMP ####[facility] Cehmodcfhm10[address] [place], [place] [address]Dr. Tadeo Smyth Urea nitrogen/Creatinine [Mass ratio] 25.0 mg/mg Normal [facility] Comment on above: Performed By: #### T 7, LIPID, TSH, CMP ####[facility] Nltxihqdbb8[address] [place] [address]Dr. Margotnicole Smyth TSHon 07-08-2022 TSH 3.748 uIU/mL Critically high 0.358-3.740 [facility] [place] Comment on above: Performed By: #### T 7, LIPID, TSH, CMP ####[facility] Cbsczrypga32[address] [place] [address]Dr. Tadeo Smyth UA RANDOM W/MICROSCOPICon BACTERIA TRACE Abnormal NONE SEEN [facility] Comment on above: Performed By: #### U AMIC ####[facility] Grobgabcfp49[address] [place] [address]Dr. Tadeo Smyth Bilirubin Ql (U) Negative Normal NEGATIVE [facility] Comment on above: Performed By: #### U AMIC ####[facility] Jbatrgjfew6783[address] [place], [place] [address]Dr. Tadeo Smyth CAST NONE SEEN Normal NONE SEEN [facility] Comment on above: Performed By: #### U AMIC ####[facility] Hyvyarlnsc1988[address] [place], [place] [address]Dr. Tadeo Smyth Clarity (U) CLEAR Normal CLEAR [facility] Comment on above: Performed By: #### U AMIC ####[facility] Dkeqquramm[address] [place] [address]Dr. Tadeo Smyth Color (U) YELLOW Normal YELLOW [facility] Comment on above: Performed By: #### U AMIC ####[facility] Juluwgovcn57[address] [place] [address]Dr. Tadeo Smyth Crystals LM Nom (Urine sed) NONE SEEN Normal NONE SEEN [facility] Comment on above: Performed By: #### U AMIC ####[facility] Xuqgfpqnnf70[address] [place] [address]Dr. Tadeo Smyth Epithelial cells LM Ql (Urine sed) FEW Abnormal NONE SEEN /RARE [facility] Comment on above: Performed By: #### U AMIC ####[facility] Sexqfpoaad4163 [place] [address]Dr. Tadeo Smyth Glucose Ql (U) Negative Normal NEGATIVE [facility] Comment on above: Performed By: #### U AMIC ####[facility] Aetpbnngfq19[address] [place] [address]Dr. Tadeo Smyth Hemoglobin Ql (U) SMALL Abnormal NEGATIVE [facility] Comment on above: Performed By: #### U AMIC ####[facility] Sngcqqsqos4125 [place] [address]Dr. Tadeo Smyth Ketones Ql (U) TRACE Abnormal NEGATIVE [facility] Comment on above: Performed By: #### U AMIC ####[facility] Yxdomhdtdz110[address] [place], [place] [address]Dr. Tadeo Smyth LEUKOCYTES TRACE Abnormal NEGATIVE [facility] Comment on above: Performed By: #### U AMIC ####[facility] Qlqximusdi7440[address] [place], [place] [address]Dr. Tadeo Smyth MUCOUS NONE SEEN Normal NONE SEEN [facility] Comment on above: Performed By: #### U AMIC ####[facility] Lhqjgfsgip69[address] [place], [place] [address]Dr. Tadeo Smyth Nitrite Ql (U) Negative Normal NEGATIVE [facility] Comment on above: Performed By: #### U AMIC ####[facility] Cxxlfrexpn119[address] [place], [place] [address]Dr. Tdaeo Smyth pH (U) 6.5 [pH] Normal 5-9 [facility] Comment on above: Performed By: #### U AMIC ####[facility] Kapbdmpvhg45[address] [place] [address]Dr. Tadeo Smyth RBC 5-10 Abnormal 0-2 [facility] Comment on above: Performed By: #### U AMIC ####[facility] Pbndhpyfhp8649 [place] [address]Dr. Tadeo Smyth SPEC GRAVITY 1.020 Normal 1.005-<=1.0 25 [facility] Comment on above: Performed By: #### U AMIC ####[facility] Oblufefplm9517 [place], [place] [address]No. Tadeo Smyth UA PROTEIN 30 mg/dl Abnormal NEGATIVE/ TRACE [facility] Comment on above: Performed By: #### U AMIC ####[facility] Zyxlngzzxx1599 [place], [place] [address]Vx. Tadeo Smyth Urobilinogen Qn (U) 0.2 {Benito'U}/dL Normal 0.2 - 1. 0 [facility] Comment on above: Performed By: #### U AMIC ####[facility] Bpjhalkorv0433 [place], [place] [address]Zf. Tadeo Smyth WBC 2-5 Abnormal NONE SEEN [facility] Comment on above: Performed By: #### U AMIC ####[facility] Sjsrblgxpy6159 [place], [place] [address]Qo. Tadeo Smyth [facility]07 SARS-CoV-2 (COVID-19) RNA CHEN+probe Ql (Unsp spec) Not detected Normal NOT DETECTED [facility] Comment on above: Result Comment: [...] for this test is supported by the [employer] of [employer]'s declaration that [...] be used). Performed By: #### C VDTBH ####[facility] Xwxcpyubfn3193 [place] [id number]. Tadeo Smyth CULTURE URINEon 06-09-2022 CULTURE URINE Normal [facility] Comment on above: Performed By: #### U RCX ####[facility] Ynwuhfonbz7014[address] [place], [place] [address]Dr. Tadeo Smyth GI PANEL (PCR)on 06-07-2022 Adenovirus F 40/41 Not detected Normal NOT DETECTED [facility] Comment on above: Performed By: #### G IPANEL ####[facility] Lygiqoghks9[address] [place], [place] [address]Dr. Tadeo Smyth Astrovirus Not detected Normal NOT DETECTED [facility] Comment on above: Performed By: #### G IPANEL ####[facility] Evwzryylen6562[address] [place], [place] [address]Dr. Tadeo Smyth C. Diff toxin A/B Not detected Normal NOT DETECTED [facility] Comment on above: Performed By: #### G IPANEL ####[facility] Bfxtvmwzpj7[address] [place], [place] [address]Dr. Tadeo Smyth Campylobacter Not detected Normal NOT DETECTED [facility] Comment on above: Performed By: #### G IPANEL ####[facility] Txsdjfkyqt[address] [place], [place] [address]Dr. Tadeo Smyth Cryptosporidium Not detected Normal NOT DETECTED [facility] Comment on above: Performed By: #### G IPANEL ####[facility] Khqxmiaizo13[address] [place], [place] [address]Dr. Tadeo Smyth Cyclos. Cayetanensis Not detected Normal NOT DETECTED [facility] Comment on above: Performed By: #### G IPANEL ####[facility] Cbghxwrbtl6[address] [place], [place] [address]Dr. Tadeo Smyth E. Coli O157 Not Applicable Normal Not Applicable [facility] Comment on above: Performed By: #### G IPANEL ####[facility] Ebkkakaspu[address] [place], [place] [address]Dr. Tadeo Smyth E. histolytica Not detected Normal NOT DETECTED [facility] Comment on above: Performed By: #### G IPANEL ####[facility] Fmnquiegsz55[address] [place], [place] [address]Dr. Tadeo Smyth EAEC Not detected Normal NOT DETECTED [facility] Comment on above: Performed By: #### G IPANEL ####[facility] Effhkwkneh[address] [place] [address]Dr. Margotnicole Smyth EIEC Not detected Normal NOT DETECTED [facility] Comment on above: Performed By: #### G IPANEL ####[facility] Wyqpixobyr0421 [place] [address]Dr. Tadeo Smyth EPEC Not detected Normal NOT DETECTED [facility] Comment on above: Performed By: #### G IPANEL ####[facility] Dmfnmexhrw34[address] [place], [place] [address]Dr. Margotnicole Smyth ETEC Not detected Normal NOT DETECTED [facility] Comment on above: Performed By: #### G IPANEL ####[facility] Fuwvhclmza8[address] [place], [place] [address]Dr. Tadeo Smyth G. Lamblia Not detected Normal NOT DETECTED [facility] Comment on above: Performed By: #### G IPANEL ####[facility] Gcrvcgxucc907[address] [place], [place] [address]Dr. Tadeo [facility] CONTROLS PASSED Normal [facility] Comment on above: Performed By: #### G IPANEL ####[facility] Auusluvgmw9378[address] [place], [place] [address]Dr. Tadeo [facility] HEADER GI PANEL BACTERIA Normal [facility] Comment on above: Performed By: #### G IPANEL ####[facility] Sxfgrfsxlw7147[address] [place], [place] [address]Dr. Tadeo [facility] ECOLI GI PANEL DIARRHEAGEN IC E.COLI / SHIGELLA Normal [facility] Comment on above: Performed By: #### G IPANEL ####[facility] Urmneaoomg7019[address] [place], [place] [address]Dr. [facility] INFO SEE BELOW Normal [facility] Comment on above: Result Comment: EAEC - Enteroaggregative E. Coli EPEC- Enteropathogenic E. Coli ETEC- Enterotoxigenic E. Coli lt/st STEC- Shigella-like toxin-producing E. Coli stx1/stx2 EIEC- Shigella/Enteroinvasive E. Coli Performed By: #### G IPANEL ####[facility] Qispdlwivs[address] [place] [address]Dr. Tadeo Smyth GIPNLHD PARASITES GI PANEL PARASITES Normal [facility] Comment on above: Performed By: #### G IPANEL ####[facility] Hjclaakbqy[address] [place] [address]Dr. Tadeo Smyth GIPNLHD VIRUS GI PANEL VIRUSES Normal The [facility] Comment on above: Performed By: #### G IPANEL ####[facility] Ymmsawjchg83[address] [place], [place] [address]Dr. Margotnicole Smyth Norovirus GI/GII Not detected Normal NOT DETECTED [facility] Comment on above: Performed By: #### G IPANEL ####[facility] Xuzfaldxsu8497[address] [place], [place] [address]Dr. Tadeo Smyth P. Shigelloides Not detected Normal NOT DETECTED [facility] Comment on above: Performed By: #### G IPANEL ####[facility] Vjeyomnntr1569[address] [place], [place] [address]Dr. Margotnicole Smyth Rotavirus A Not detected Normal NOT DETECTED [facility] Comment on above: Performed By: #### G IPANEL ####[facility] Kehigydbur65[address] [place], [place] [address]Dr. Tadeo Smyth Salmonella Not detected Normal NOT DETECTED [facility] Comment on above: Performed By: #### G IPANEL ####[facility] Qctznvadxv7440[address] [place], [place] [address]Dr. Tadeo Smyth Sapovirus Not detected Normal NOT DETECTED [facility] Comment on above: Performed By: #### G IPANEL ####[facility] Wughcauvzl4304[address] [place], [place] [address]Dr. Tadeo Smyth STEC Not detected Normal NOT DETECTED [facility] Comment on above: Performed By: #### G IPANEL ####[facility] Decxhibjdj220[address] [place], [place] [address]Dr. Tadeo Smyth Vibrio Not detected Normal NOT DETECTED [facility] Comment on above: Performed By: #### G IPANEL ####[facility] Iotgkrlpqa499[address] [place], [place] [address]Dr. Tadeo Smyth Vibrio Cholera Not detected Normal NOT DETECTED [facility] Comment on above: Performed By: #### G IPANEL ####[facility] Lzubjhwfbl6638[address] [place], [place] [address]Dr. Tadeo Smyth Y. Enterocolitica Not detected Normal NOT DETECTED [facility] Comment on above: Performed By: #### G IPANEL ####[facility] Evtvmorwco6047[address] [place], [place] [address]Dr. Tadeo Smyth AMYLASEon 06-06-2022 Amylase [Catalytic activity/Vol] 61 U/L Normal 25-115 [facility] Comment on above: Performed By: #### A KEITH MARTÍNEZ ####[facility] Dxrfyqzmtd438[address] [place], [place] [address]Dr. Tadeo Smyth CBC AUTO DIFFon 06-06-2022 BASO # 0.0 103/ul Normal 0.0-0.1 [facility] Comment on above: Performed By: #### C BC ####[facility] Afzkycpjjl5972[address] [place], [place] [address]Dr. Tadeo Haja Basophils/100 WBC (Bld) 0.5 % Normal 0.2-2.0 [facility] Comment on above: Performed By: #### C BC ####[facility] Ihesjlypni5084[address] [place], [place] [address]Dr. Tadeo Smyth EO # 0.2 103/ul Normal 0.0-0.7 [facility] Comment on above: Performed By: #### C BC ####[facility] Fquzknjykl7105[address] [place], [place] [address]Dr. Tadoe Haja Eosinophils/100 WBC (Bld) 3.4 % Normal 0.9-7.0 [facility] Comment on above: Performed By: #### C BC ####[facility] Onhlwbmijr4082[address] [place], [place] [address]Dr. Tadeo Smyth Erythrocyte distribution width (RBC) [Ratio] 13.2 % Normal 11.0-15.0 [facility] Comment on above: Performed By: #### C BC ####[facility] Qovgegjxww257[address] [place], [place] [id number]. Tadeo Smyth Hematocrit (Bld) [Volume fraction] 38.3 % Normal 36.0-48.0 [facility] Comment on above: Performed By: #### C BC ####[facility] Qcvmdviuop47[address] [place] [address]Dr. Tadeo Smyth Hemoglobin (Bld) [Mass/Vol] 12.0 g/dL Normal 12.0-16.0 [facility] Comment on above: Performed By: #### C BC ####[facility] Nivwshjyuy[address] [place] [address]Dr. Tadeo Smyth IG # 0.01 10e3/ul Normal 0.00-0.03 [facility] Comment on above: Performed By: #### C BC ####[facility] Putbsyoimv3830 [place] [address]Dr. Tadeo Smyth IG % 0.2 % Normal 0.0-0.5 [facility] Comment on above: Performed By: #### C BC ####[facility] Agkpcbqhit7796[address] [place], [place] [address]Dr. Tadeo Smyth LYMPH # 1.7 103/ul Normal 1.2-3.8 [facility] Comment on above: Performed By: #### C BC ####[facility] Dswkrieeth6[address] [place] [address]Dr. Tadeo Smyth Lymphocytes/100 WBC (Bld) 28.1 % Normal 20.5-60.0 [facility] Comment on above: Performed By: #### C BC ####[facility] Bpbliflskg[address] [place] [address]Dr. Tadeo Smyth MANUAL DIFF REQ NO Normal [facility] Comment on above: Performed By: #### C BC ####[facility] Fygjrqioar9415[address] [place], [place] [address]Dr. Tadeo Smyth MCH (RBC) [Entitic mass] 28.5 pg Normal 26.7-34.0 [facility] Comment on above: Performed By: #### C BC ####[facility] Tzazldnarh1183[address] [place], [place] [address]Dr. Tadeo Smyth MCHC (RBC) [Mass/Vol] 31.3 g/dL Normal 29.9-35.2 [facility] Comment on above: Performed By: #### C BC ####[facility] T[address]qktycce[address] [place] [id number]. Tadeo Haja MCV (RBC) [Entitic vol] 91.0 fL Normal 81.0-99.0 [facility] Comment on above: Performed By: #### C BC ####[facility] Cjvokkchcx7764[address] [place], [place] [address]DrNeo Smyth MONO # 0.4 103/ul Normal 0.3-0.8 [facility] Comment on above: Performed By: #### C BC ####[facility] Rnnhkgzmye9048[address] [place], [place] [address]Dr. Tadeo Smyth Monocytes/100 WBC (Bld) 7.1 % Normal 1.7-12.0 [facility] Comment on above: Performed By: #### C BC ####[facility] Zquuoyxwxf9917[address] [place], [place] [address]Dr. Tadeo Smyth NEUT # 3.6 103/ul Normal 1.4-6.5 [facility] Comment on above: Performed By: #### C BC ####[facility] Gzyaatazme517[address] [place], [place] [address]DrNeo Smyth Neutrophils/100 WBC (Bld) 60.7 % Normal 43.0-75.0 [facility] Comment on above: Performed By: #### C BC ####[facility] Rczccmfmzb4435[address] [place], [place] [address]Dr. Tadeo Smyth Platelet mean volume (Bld) [Entitic vol] 8.9 fL Critically low 9.5-13.5 [facility] Comment on above: Performed By: #### C BC ####[facility] Uhdcynfgdq039[address] [place], [place] [address]Dr. Tadeo Smyth PLT 374 103/ul Normal 150-450 [facility] Comment on above: Performed By: #### C BC ####[facility] Ddtxrjmigg5849[address] [place], [place] [address]Dr. Tadeo Smyth RBC 4.21 106/ul Normal 4.20-5.40 [facility] Comment on above: Performed By: #### C BC ####[facility] Mistxzdhic8176[address] [place], [place] [address]Dr. Tadeo Smyth WBC 5.9 103/ul Normal 4.0-11.0 [facility] Comment on above: Performed By: #### C BC ####[facility] Rmnvvbuipg466[address] [place], [place] [address]Dr. Tadeo Smy[address] CT ABD/PELV W CONon 06-06-[address] ABD/PELV W CON Normal [facility] ER URINE PROFILEon 2 Bilirubin Ql (U) Negative Normal NEGATIVE [facility] Comment on above: Performed By: #### SANDRO MERCHANTRO ####[facility] Psiziezhjs1362[address] [place], [place] [address]Dr. Tadeo Smyth Clarity (U) CLOUDY Abnormal CLEAR [facility] Comment on above: Performed By: #### SANDRO MERCHANTRO ####[facility] Rjgpxedgwd7829[address] [place], [place] [address]Dr. Tadeo Smyth Color (U) LT. YELLOW Normal YELLOW [facility] Comment on above: Performed By: #### SANDRO MERCHANTRO ####[facility] Epujgiuisr387[address] [place], [place] [address]Dr. Tadeo Smyth ERUAHD A micrscopic examina tion will be performed if indicated. Normal [facility] Comment on above: Performed By: #### SANDRO MERCHANTRO ####[facility] Lumpatbqkt6024[address] [place], [place] [address]Dr. Tadeo Smyth Glucose Ql (U) Negative Normal NEGATIVE [facility] Comment on above: Performed By: #### SANDRO MERCHANTRO ####[facility] Ogrkiseyfo4063[address] [place], [place] [address]Dr. Tadeo Smyth Hemoglobin Ql (U) TRACE-INTACT Abnormal NEGATIVE [facility] Comment on above: Performed By: #### SANDOR MERCHANTRO ####[facility] Vypmnxsqsv52[address] [place] [address]Dr. Tadeo Smyth Ketones Ql (U) Negative Normal NEGATIVE [facility] Comment on above: Performed By: #### KAROL MERCHANT ####[facility] Ayitgqleac30[address] [place] [address]Dr. Tadeo Smyth LEUKOCYTES SMALL Abnormal NEGATIVE [facility] Comment on above: Performed By: #### KAROL MERCHANT ####[facility] Cmjmprycgh6210[address] [place], [place] [address]Dr. Tadeo Smyth Nitrite Ql (U) Negative Normal NEGATIVE [facility] Comment on above: Performed By: #### KAROL MERCHANT ####[facility] Snuiogwzkx0123[address] [place], [place] [address]Dr. Tadeo Smyth pH (U) 6.0 [pH] Normal 5-9 [facility] Comment on above: Performed By: #### KAROL MERCHANT ####[facility] Sxymtnepxc6208[address] [place], [place] [address]Dr. Tadeo Smyth SPEC GRAVITY 1.020 Normal 1.005-<=1.0 25 [facility] Comment on above: Performed By: #### KAROL MERCHANT ####[facility] Sqlziarzgh9104[address] [place], [place] [address]Dr. Tadeo Smyth UA PROTEIN Negative Normal NEGATIVE/ TRACE [facility] Comment on above: Performed By: #### KAROL MERCHANT ####[facility] Skjgryyyhn3439[address] [place], [place] [address]DrNeo Smyth UR MICRO IND INDICATED Normal [facility] Comment on above: Performed By: #### KAROL MERCHANT ####[facility] Kiqizcccwj7130[address] [place], [place] [address]Dr. Tadeo Smyth Urobilinogen Qn (U) 0.2 {Benito'U}/dL Normal 0.2 - 1. 0 [facility] Comment on above: Performed By: #### KAROL MERCHANT ####[facility] Xsyjzqzhpg2455[address] [place], [place] [address]Dr. Tadeo Smyth LIPASEon 06-06-2022 Lipase [Catalytic activity/Vol] 100.0 U/L Normal 73.0-393.0 [facility] Comment on above: Performed By: #### A MY LIPA ####[facility] Tvpglpdwva[address] [place] [address]Dr. Tadeo Smyth PROF 14(COMP METB)on 022 Albumin [Mass/Vol] 3.3 g/dL Critically low 3.4-5.0 [facility] Comment on above: Performed By: #### C MP ####[facility] Ukqoqhhzry5729[address] [place], [place] [address]Dr. Tadeo Smyth Albumin/Globulin [Mass ratio] 0.9 {ratio} Normal [facility] Comment on above: Performed By: #### C MP ####[facility] Htaihttpqc9160[address] [place], [place] [address]Dr. Tadeo Smyth ALP [Catalytic activity/Vol] 140 U/L Critically high 46-116 [facility] Comment on above: Performed By: #### C MP ####[facility] Pwzfzzqsxc7120[address] [place], [place] [address]Dr. Tadeo Smyth ALT [Catalytic activity/Vol] 23 U/L Normal 14-59 [facility] Comment on above: Performed By: #### C MP ####[facility] Snkzsewjos6903[address] [place], [place] [address]Dr. Tadeo Smyth Anion gap [Moles/Vol] 11.6 mmol/L Normal [facility] Comment on above: Performed By: #### C MP ####[facility] Minouqwicd5528[address] [place], [place] [address]Dr. Tadeo Smyth AST [Catalytic activity/Vol] 18 U/L Normal 15-37 [facility] Comment on above: Performed By: #### C MP ####[facility] Hbqtojzlvs4555[address] [place], [place] [address]Dr. Tadeo Smyth Bilirubin [Mass/Vol] 0.2 mg/dL Normal 0.2-1.0 [facility] Comment on above: Performed By: #### C MP ####[facility] Wosrmgngcv42[address] [place] [address]Dr. Tadeo Smyth Calcium [Mass/Vol] 8.8 mg/dL Normal 8.5-10.1 [facility] Comment on above: Performed By: #### C MP ####[facility] Fiwgmxieij4[address] [place] [address]Dr. Tadeo Smyth Chloride [Moles/Vol] 109 mmol/L Critically high 98-107 [facility] Comment on above: Performed By: #### C MP ####[facility] Wbkllqsrxe8261 [place] [address]Dr. Tadoe Smyth CO2 [Moles/Vol] 26.3 mmol/L Normal 21.0-32.0 [facility] Comment on above: Performed By: #### C MP ####[facility] Sinitvjjgh1618 [place] [address]Dr. Tadeo Smyth Creatinine [Mass/Vol] 0.81 mg/dL Normal 0.55-1.02 [facility] Comment on above: Performed By: #### C MP ####[facility] Uyuamrmjcm94[address] [place] [address]Dr. Tadeo Smyth EGFR-AF LITHUANIAN >60 Normal >=60 [facility] Comment on above: Performed By: #### C MP ####[facility] Acjxovihjm52[address] [place] [address]Dr. Tadeo Smyth EGFR-NON AF LITHUANIAN >60 Normal >=60 [facility] Comment on above: Performed By: #### C MP ####[facility] Dwavtnmteb5613 [place] [address]Dr. Tadeo Smyth Globulin (S) [Mass/Vol] 3.7 g/dL Normal [facility] Comment on above: Performed By: #### C MP ####[facility] Tufsmosuxj5[address] [place] [address]Dr. Tadeo Smyth Glucose [Mass/Vol] 90 mg/dL Normal 74-106 [facility] Comment on above: Performed By: #### C MP ####[facility] Hotmlcujmn8640[address] [place], [place] [address]Dr. Yinicole Smyth Potassium [Moles/Vol] 3.9 mmol/L Normal 3.5-5.1 [facility] Comment on above: Performed By: #### C MP ####[facility] Wlwuyaetle5035 [place] [address]Dr. Tadeo Smyth Protein [Mass/Vol] 7.0 g/dL Normal 6.4-8.2 [facility] Comment on above: Performed By: #### C MP ####[facility] Rjdbgkennb1186[address] [place], [place] [address]Dr. Margotnicole Smyth Sodium [Moles/Vol] 143 mmol/L Normal 136-145 [facility] Comment on above: Performed By: #### C MP ####[facility] Nvegzmrgty0923[address] [place], [place] [address]Dr. Tadeo Smyth Urea nitrogen [Mass/Vol] 12.0 mg/dL Normal 7.0-18.0 [facility] Comment on above: Performed By: #### C MP ####[facility] Qcnmjcydrb3769[address] [place], [place] [address]Dr. Tadeo Smyth Urea nitrogen/Creatinine [Mass ratio] 14.8 mg/mg Normal [facility] Comment on above: Performed By: #### C MP ####[facility] Bvxpavnldp9733[address] [place], [place] [address]Dr. Tadeo Haja URINE MICROSCOPIC ONLYon BACTERIA LARGE Abnormal NONE SEEN [facility] Comment on above: Performed By: #### KAROL MERCHANT ####[facility] Qarlmmrump0589[address] [place], [place] [address]Dr. Tadeo Smyth Bacteria identified Cx Nom (U) INDICATED Normal [facility] Comment on above: Performed By: #### SANDRO MERCHANTRO ####[facility] Ekolqljvfn1814[address] [place], [place] [address]Dr. Tadeo Smyth CAST NONE SEEN Normal NONE SEEN [facility] Comment on above: Performed By: #### SANDRO MERCHANTRO ####[facility] Vtefquipqx4948[address] [place], [place] [address]Dr. Tadeo Smyth Crystals LM Nom (Urine sed) NONE SEEN Normal NONE SEEN [facility] Comment on above: Performed By: #### Matthew FRANCISCO UMICRO ####[facility] Yuaqglopdf68[address] [place] [address]Dr. Tadeo Smyth Epithelial cells LM Ql (Urine sed) RARE Normal NONE SEEN /RARE [facility] Comment on above: Performed By: #### Matthew FRANCISCO UMICRO ####[facility] Mkfrfpnykc6130 [place] [address]Dr. Tadeo Smyth MUCOUS TRACE Abnormal NONE SEEN [facility] Comment on above: Performed By: #### Matthew FRANCISCO UMICRO ####[facility] Mrsolrdyhk6088 [place] [address]Dr. Tadeo Smyth RBC 0-2 Normal 0-2 [facility] Comment on above: Performed By: #### RANDI MERCHANTICRO ####[facility] Gqstwzgqll2112[address] [place], [place] [address]Dr. Tadeo Smyth WBC 2-5 Abnormal NONE SEEN [facility] Comment on above: Performed By: #### RANDI MERCHANTICRO ####[facility] Kuntxarxdk7329 [place] [address]Dr. Tadeo Smyth AMYLASEon 06-04-2022 Amylase [Catalytic activity/Vol] 61 U/L Normal 25-115 [facility] Comment on above: Performed By: #### A MY, CMP, LIPA ####[facility] Buylltxdit2899[address] [place], [place] [address]Dr. Tadeo Smyth CBC AUTO DIFFon 06-04-2022 BASO # 0.0 103/ul Normal 0.0-0.1 [facility] Comment on above: Performed By: #### C BC ####[facility] Zudqblfbdh6150[address] [place], [place] [address]Dr. Tadeo Smyth Basophils/100 WBC (Bld) 0.5 % Normal 0.2-2.0 [facility] Comment on above: Performed By: #### C BC ####[facility] Wzcnkwfeal0613[address] [place], [place] [address]Dr. Tadeo Smyth EO # 0.3 103/ul Normal 0.0-0.7 [facility] Comment on above: Performed By: #### C BC ####[facility] Qbtymtvezc2377 [place] [address]Dr. Tadeo Smyth Eosinophils/100 WBC (Bld) 4.7 % Normal 0.9-7.0 [facility] Comment on above: Performed By: #### C BC ####[facility] Psnpfzidaj7762[address] [place], [place] [address]Dr. Tadeo Smyth Erythrocyte distribution width (RBC) [Ratio] 13.2 % Normal 11.0-15.0 [facility] Comment on above: Performed By: #### C BC ####[facility] Qyzeprolfy5349[address] [place], [place] [address]Dr. Tadeo Smyth Hematocrit (Bld) [Volume fraction] 36.9 % Normal 36.0-48.0 [facility] Comment on above: Performed By: #### C BC ####[facility] Ddvkrcdzbv6005[address] [place], [place] [address]Dr. Tadeo Smyth Hemoglobin (Bld) [Mass/Vol] 11.9 g/dL Critically low 12.0-16.0 [facility] Comment on above: Performed By: #### C BC ####[facility] Egfgtvfhpg2872[address] [place], [place] [address]Dr. Tadeo Smyth IG # 0.01 10e3/ul Normal 0.00-0.03 [facility] Comment on above: Performed By: #### C BC ####[facility] Ahlfkhphen1047[address] [place], [place] [address]Dr. Tadeo Smyth IG % 0.2 % Normal 0.0-0.5 [facility] Comment on above: Performed By: #### C BC ####[facility] Ayamtdeflk3745[address] [place], [place] [address]Dr. Tadeo Smyth LYMPH # 2.3 103/ul Normal 1.2-3.8 [facility] Comment on above: Performed By: #### C BC ####[facility] Pvyubtibwf895[address] [place], [place] [address]Dr. Tadeo Smyth Lymphocytes/100 WBC (Bld) 37.3 % Normal 20.5-60.0 [facility] Comment on above: Performed By: #### C BC ####[facility] Srbdjdqreo37[address] [place] [address]DrNeo Smyth MANUAL DIFF REQ NO Normal [facility] Comment on above: Performed By: #### C BC ####[facility] Xwgklqxtmf6826 [place] [address]Dr. Tadeo Smyth MCH (RBC) [Entitic mass] 29.0 pg Normal 26.7-34.0 [facility] Comment on above: Performed By: #### C BC ####[facility] Wyjsxtdlrn3973[address] [place], [place] [address]Dr. Tadeo Smyth MCHC (RBC) [Mass/Vol] 32.2 g/dL Normal 29.9-35.2 [facility] Comment on above: Performed By: #### C BC ####[facility] Axswskowjc1945[address] [place], [place] [address]Dr. Tadeo Smyth MCV (RBC) [Entitic vol] 90.0 fL Normal 81.0-99.0 [facility] Comment on above: Performed By: #### C BC ####[facility] Oquwqkyyyl4012[address] [place], [place] [address]Dr. Tadeo Smyth MONO # 0.4 103/ul Normal 0.3-0.8 [facility] Comment on above: Performed By: #### C BC ####[facility] Razdxbcgdm2674[address] [place], [place] [address]Dr. Tadeo Smyth Monocytes/100 WBC (Bld) 6.8 % Normal 1.7-12.0 [facility] Comment on above: Performed By: #### C BC ####[facility] Otzxsbztoe2958[address] [place], [place] [address]DrNeo Smyth NEUT # 3.2 103/ul Normal 1.4-6.5 [facility] Comment on above: Performed By: #### C BC ####[facility] Aomemupuiv7899[address] [place], [place] [address]DrNeo Smyth Neutrophils/100 WBC (Bld) 50.5 % Normal 43.0-75.0 [facility] Comment on above: Performed By: #### C BC ####[facility] Tzkjvuibgb4[address] [place] [address]Dr. Tadeo Smyth Platelet mean volume (Bld) [Entitic vol] 8.9 fL Critically low 9.5-13.5 [facility] Comment on above: Performed By: #### C BC ####[facility] Ydkvbkqfss9434 [place] [address]Dr. Tadeo Smyth PLT 387 103/ul Normal 150-450 [facility] Comment on above: Performed By: #### C BC ####[facility] Ongwwsrqtw3338 [place] [address]Dr. Tadeo Smyth RBC 4.10 106/ul Critically low 4.20-5.40 [facility] Comment on above: Performed By: #### C BC ####[facility] Pbtozmmmyh0599[address] [place], [place] [address]Dr. Tadeo Smyth WBC 6.2 103/ul Normal 4.0-11.0 [facility] Comment on above: Performed By: #### C BC ####[facility] Nbivhimufj6278[address] [place], [place] [address]Dr. Tadeo Smyth CT ABD/PELV W CONon 06-04-[address] ABD/PELV W CON Normal [facility] ER URINE PROFILEon 2 Bilirubin Ql (U) Negative Normal NEGATIVE [facility] Comment on above: Performed By: #### KAROL MERCHANT ####[facility] Yflncsefyz[address] [place] [id number]. Tadeo Smyth Clarity (U) CLEAR Normal CLEAR [facility] Comment on above: Performed By: #### SANDRO MERCHANTRO ####[facility] Ssxapqtrnk4[address] [place] [id number]. Tadeo Smyth Color (U) LT. YELLOW Normal YELLOW [facility] [facility] Comment on above: Performed By: #### KAROL MERCHANT ####[facility] Ngcdqkvxfq6540 [place] [id number]. Tadeo ENG A micrscopic examina tion will be performed if indicated. Normal [facility] Comment on above: Performed By: #### KAROL MERCHANT ####[facility] Hzhzigykdm0267 [place] [address]Dr. Tadeo Smyth Glucose Ql (U) Negative Normal NEGATIVE [facility] Comment on above: Performed By: #### SANDRO MERCHANTRO ####[facility] Uhafjgkcla8[address] [place], [place] [address]Dr. Tadeo Smyth Hemoglobin Ql (U) TRACE-INTACT Abnormal NEGATIVE [facility] Comment on above: Performed By: #### SANDRO MERCHANTRO ####[facility] Vddimbbucx110[address] [place], [place] [address]Dr. Tadeo Smyth Ketones Ql (U) Negative Normal NEGATIVE [facility] Comment on above: Performed By: #### SANDRO MERCHANTRO ####[facility] Bhkntwolte1353[address] [place], [place] [address]Dr. Tadeo Smyth LEUKOCYTES Negative Normal NEGATIVE [facility] Comment on above: Performed By: #### SANDRO MERCHANTRO ####[facility] Fqjtmlpcps025[address] [place], [place] [address]Dr. Tadeo Smyth Nitrite Ql (U) Negative Normal NEGATIVE [facility] Comment on above: Performed By: #### SANDRO MERCHANTRO ####[facility] Qwfmrqksnt22[address] [place], [place] [address]Dr. Tadeo Smyth pH (U) 6.5 [pH] Normal 5-9 [facility] Comment on above: Performed By: #### SANDRO MERCHANTRO ####[facility] Pdcghknsse65[address] [place] [address]Dr. Tadeo Smyth SPEC GRAVITY 1.015 Normal 1.005-<=1.0 25 [facility] Comment on above: Performed By: #### SANDRO MERCHANTRO ####[facility] Nkqdlvrzzr3196 [place] [address]Dr. Tadeo Smyth UA PROTEIN Negative Normal NEGATIVE/ TRACE [facility] Comment on above: Performed By: #### KAROL MERCHANT ####[facility] Zcanjabswf7724 [place] [address]Dr. Tadeo Smyth UR MICRO IND INDICATED Normal [facility] Comment on above: Performed By: #### KAROL MERCHANT ####[facility] Onqdmfduxz7347 [place] [address]Dr. Tadeo Smyth Urobilinogen Qn (U) 0.2 {Benito'U}/dL Normal 0.2 - 1. 0 [facility] Comment on above: Performed By: #### KAROL MERCHANT ####[facility] Vrdhsykmcp5841 [place] [address]Dr. Tadeo Smyth LIPASEon 06-04-2022 Lipase [Catalytic activity/Vol] 81.0 U/L Normal 73.0-393.0 [facility] Comment on above: Performed By: #### A MY, CMP, LIPA ####[facility] Esvkkalzak8[address] [place] [address]Dr. Tadeo Smyth PROF 14(COMP METB)on 022 Albumin [Mass/Vol] 3.6 g/dL Normal 3.4-5.0 [facility] Comment on above: Performed By: #### A MY, CMP, LIPA ####[facility] Dsgqhomvvs6811 [place] [address]Dr. Tadeo Smyth Albumin/Globulin [Mass ratio] 1.0 {ratio} Normal [facility] Comment on above: Performed By: #### A MY, CMP, LIPA ####[facility] Vrzqnhozkc8627 [place] [address]Dr. Tadeo Smyth ALP [Catalytic activity/Vol] 150 U/L Critically high 46-116 [facility] Comment on above: Performed By: #### A MY, CMP, LIPA ####[facility] Qgtgttpjxa2688 [place] [address]Dr. Tadeo Smyth ALT [Catalytic activity/Vol] 23 U/L Normal 14-59 [facility] Comment on above: Performed By: #### A MY, CMP, LIPA ####[facility] Oypckdyukn0747 [place] [address]Dr. Tadeo Smyth Anion gap [Moles/Vol] 13.2 mmol/L Normal Th [facility] Comment on above: Performed By: #### A MY, CMP, LIPA ####[facility] Bddxruspsa9264 [place] [address]Dr. Tadeo Smyth AST [Catalytic activity/Vol] 12 U/L Critically low 15-37 [facility] Comment on above: Performed By: #### A MY, CMP, LIPA ####[facility] Qmdjgeafzf6304[address] [place], [place] [address]Dr. Tadeo Smyth Bilirubin [Mass/Vol] 0.1 mg/dL Critically low 0.2-1.0 [facility] Comment on above: Performed By: #### A MY, CMP, LIPA ####[facility] Ekxbkzdfam499[address] [place], [place] [address]Dr. Tadeo Smyth Calcium [Mass/Vol] 9.0 mg/dL Normal 8.5-10.1 [facility] Comment on above: Performed By: #### A MY, CMP, LIPA ####[facility] Fxbsugaqyr7036[address] [place], [place] [address]Dr. Tadeo Smyth Chloride [Moles/Vol] 104 mmol/L Normal 98-107 [facility] Comment on above: Performed By: #### A MY, CMP, LIPA ####[facility] Cgbzuwqcqe7559[address] [place], [place] [address]Dr. Tadeo Smyth CO2 [Moles/Vol] 26.6 mmol/L Normal 21.0-32.0 [facility] Comment on above: Performed By: #### A MY, CMP, LIPA ####[facility] Lffbqpethw663[address] [place], [place] [address]Dr. Tadeo Smyth Creatinine [Mass/Vol] 0.97 mg/dL Normal 0.55-1.02 [facility] Comment on above: Performed By: #### A MY, CMP, LIPA ####[facility] Qzoqwflhrf7[address] [place], [place] [address]Dr. Tadeo Smyth EGFR-AF LITHUANIAN >60 Normal >=60 [facility] Comment on above: Performed By: #### A MY, CMP, LIPA ####[facility] Ggudqndjpr88[address] [place] [address]Dr. Tadeo Smyth EGFR-NON AF LITHUANIAN 60 mL/min/1.73m2 Normal >=60 [facility] Comment on above: Performed By: #### A MY, CMP, LIPA ####[facility] Eyhtfvntti2312 [place] [address]Dr. Tadeo Smyth Globulin (S) [Mass/Vol] 3.7 g/dL Normal [facility] Comment on above: Performed By: #### A MY, CMP, LIPA ####[facility] Tmwdnqjjpr2842 [place] [address]Dr. Tadeo Smyth Glucose [Mass/Vol] 109 mg/dL Critically high 74-106 [facility] Comment on above: Performed By: #### A MY, CMP, LIPA ####[facility] Owlstoxwjs9820 [place] [address]Dr. Tadeo Smyth Potassium [Moles/Vol] 3.8 mmol/L Normal 3.5-5.1 [facility] Comment on above: Performed By: #### A MY, CMP, LIPA ####[facility] Pedeykgwuw7008 [place] [address]Dr. Tadeo Smyth Protein [Mass/Vol] 7.3 g/dL Normal 6.4-8.2 [facility] Comment on above: Performed By: #### A MY, CMP, LIPA ####[facility] Frbngzhsoy7828 [place] [address]Dr. Tadeo Smyth Sodium [Moles/Vol] 140 mmol/L Normal 136-145 [facility] Comment on above: Performed By: #### A MY, CMP, LIPA ####[facility] Psciwfqpna9678 [place] [address]Dr. Tadeo Smyth Urea nitrogen [Mass/Vol] 21.0 mg/dL Critically high 7.0-18.0 [facility] Comment on above: Performed By: #### A MY, CMP, LIPA ####[facility] Dxnabffywo3705 [place] [address]Dr. Tadeo Smyth Urea nitrogen/Creatinine [Mass ratio] 21.6 mg/mg Normal [facility] Comment on above: Performed By: #### A MY, CMP, LIPA ####[facility] Kcawugflgq6649 [place] [address]Dr. Tadeo Smyth URINE MICROSCOPIC ONLYon BACTERIA NONE SEEN Normal NONE SEEN [facility] Comment on above: Performed By: #### Matthew FRANCISCO UMICRO ####[facility] Myjhseikxc9920[address] [place], [place] [address]Dr. Tadeo Smyth Bacteria identified Cx Nom (U) NOT INDICATED Normal [facility] Comment on above: Performed By: #### Matthew FRANCISCO UMICRO ####[facility] Anbwhinljh578[address] [place], [place] [address]Dr. Tadeo Smyth CAST NONE SEEN Normal NONE SEEN [facility] Comment on above: Performed By: #### Matthew FRANCISCO UMICRO ####[facility] Hmtfupqgkg7597[address] [place], [place] [address]Dr. Tadeo Smyth Crystals LM Nom (Urine sed) NONE SEEN Normal NONE SEEN [facility] Comment on above: Performed By: #### Matthew FRANCISCO UMICRO ####[facility] Zheuoypgro5208[address] [place], [place] [address]Dr. Tadeo Smyth Epithelial cells LM Ql (Urine sed) FEW Abnormal NONE SEEN /RARE [facility] Comment on above: Performed By: #### Matthew FRANCISCO UMICRO ####[facility] Xpmvnqerpb3150[address] [place], [place] [address]Dr. Tadeo Smyth MUCOUS NONE SEEN Normal NONE SEEN [facility] Comment on above: Performed By: #### Matthew FRANCISCO UMICRO ####[facility] Obzzlrpprd8384[address] [place], [place] [address]Dr. Tadeo Smyth RBC 0-2 Normal 0-2 [facility] Comment on above: Performed By: #### Matthew FRANCISCO UMCHINEDURO ####[facility] Wfisujvmwb177[address] [place], [place] [id number]. Tadeo Smyth WBC NONE SEEN Normal NONE SEEN [facility] Comment on above: Performed By: #### E KAROL FRANCISCO ####[facility] Vueklyzcwb1173 [place] [phone]. Tadeo Smyth MICRO OTHER TESTSOrdered By: Guillermo Rocha on 04-29-2022 Fecal WBC Lactoferrin Negative (04/29/22 8:00 AM) Normal Negative [facility] Man Sero CULTURE URINEon 03-31-2022 CULTURE URINE Normal [facility] Comment on above: Performed By: #### U RCX ####[facility] Lfujlwuygc4110[address] [place], [place] [address]Dr. Tadeo Smyth CBC AUTO DIFFon 03-30-2022 BASO # 0.0 103/ul Normal 0.0-0.1 [facility] Comment on above: Performed By: #### C BC ####[facility] Fgxkhikevp4225 [place] [address]Dr. Tadeo Smyth Basophils/100 WBC (Bld) 0.4 % Normal 0.2-2.0 [facility] Comment on above: Performed By: #### C BC ####[facility] Bigigvcemw0106[address] [place], [place] [address]DrNeo Smyth EO # 0.3 103/ul Normal 0.0-0.7 [facility] Comment on above: Performed By: #### C BC ####[facility] Ghziutruzn6932 [place] [address]Dr. Tadeo Smyth Eosinophils/100 WBC (Bld) 5.1 % Normal 0.9-7.0 [facility] Comment on above: Performed By: #### C BC ####[facility] Slcbabgmxy0533[address] [place], [place] [address]Dr. Tadeo Smyth Erythrocyte distribution width (RBC) [Ratio] 12.8 % Normal 11.0-15.0 [facility] Comment on above: Performed By: #### C BC ####[facility] Irtesdbjpk1935[address] [place], [place] [address]Dr. Tadeo Smyth Hematocrit (Bld) [Volume fraction] 36.4 % Normal 36.0-48.0 [facility] Comment on above: Performed By: #### C BC ####[facility] Lscgfgqjgo7962 [place] [address]DrNeo Smyth Hemoglobin (Bld) [Mass/Vol] 12.0 g/dL Normal 12.0-16.0 [facility] Comment on above: Performed By: #### C BC ####[facility] Mzkvucjljt0265 [place] [address]DrNeo Smyth IG # 0.02 10e3/ul Normal 0.00-0.03 [facility] Comment on above: Performed By: #### C BC ####[facility] Gciznhskph396[address] [place], [place] [address]DrNeo Smyth IG % 0.4 % Normal 0.0-0.5 [facility] Comment on above: Performed By: #### C BC ####[facility] Wbzogoxjxz5448[address] [place], [place] [address]DrNeo Smyth LYMPH # 1.4 103/ul Normal 1.2-3.8 [facility] Comment on above: Performed By: #### C BC ####[facility] Ttfdstwqre4768[address] [place], [place] [address]DrNeo Smyth Lymphocytes/100 WBC (Bld) 25.5 % Normal 20.5-60.0 [facility] Comment on above: Performed By: #### C BC ####[facility] Nkyutfpmvh6159 [place] [address]DrNeo Smyth MANUAL DIFF REQ NO Normal [facility] Comment on above: Performed By: #### C BC ####[facility] Kqdeecbewi0830 [place] [id number] Smyth MCH (RBC) [Entitic mass] 29.1 pg Normal 26.7-34.0 [facility] Comment on above: Performed By: #### C BC ####[facility] Lpivkcnbgt9413 [place] [phone] Smyth MCHC (RBC) [Mass/Vol] 33.0 g/dL Normal 29.9-35.2 [facility] Comment on above: Performed By: #### C BC ####[facility] Ozgnusybls5373 [place] [address]DrNeo Tadeo Haja MCV (RBC) [Entitic vol] 88.3 fL Normal 81.0-99.0 [facility] Comment on above: Performed By: #### C BC ####[facility] Xyirmleoiw5493 [place] [address]DrNeo Smyth MONO # 0.4 103/ul Normal 0.3-0.8 [facility] Comment on above: Performed By: #### C BC ####[facility] Ourjmnuvwf2326 [place] [address]DrNeo Smyth Monocytes/100 WBC (Bld) 7.1 % Normal 1.7-12.0 [facility] Comment on above: Performed By: #### C BC ####[facility] Iiylopbwnj7145[address] [place], [place] [address]Dr. Tadeo Smyth NEUT # 3.4 103/ul Normal 1.4-6.5 [facility] Comment on above: Performed By: #### C BC ####[facility] Tygmcdvdsi9936[address] [place], [place] [address]Dr. Tadeo Smyth Neutrophils/100 WBC (Bld) 61.5 % Normal 43.0-75.0 [facility] Comment on above: Performed By: #### C BC ####[facility] Nzvkkvmbsp3947[address] [place], [place] [address]Dr. Tadeo Smyth Platelet mean volume (Bld) [Entitic vol] 8.8 fL Critically low 9.5-13.5 [facility] Comment on above: Performed By: #### C BC ####[facility] Pdthsmxell8170[address] [place], [place] [address]Dr. Tadeo Smyth PLT 324 103/ul Normal 150-450 [facility] Comment on above: Performed By: #### C BC ####[facility] Soxjgqnqee1520 [place] [id number] Smyth RBC 4.12 106/ul Critically low 4.20-5.40 [facility] Comment on above: Performed By: #### C BC ####[facility] Pghznyojel6978 [place] [address]Dr. Tadeo Smyth WBC 5.5 103/ul Normal 4.0-11.0 [facility] Comment on above: Performed By: #### C BC ####[facility] Uxdluvznim9909 [place] [address]DrNeo Smyth PROF 14(COMP METB)on 022 Albumin [Mass/Vol] 3.1 g/dL Critically low 3.4-5.0 [facility] Comment on above: Performed By: #### C MP ####[facility] Ykxzwpfkum4646 [place] [address]Dr. Tadeo Smyth Albumin/Globulin [Mass ratio] 0.9 {ratio} Normal [facility] Comment on above: Performed By: #### C MP ####[facility] Owoezwxunr0712 [place] [address]Dr. Tadeo Smyth ALP [Catalytic activity/Vol] 119 U/L Critically high 46-116 [facility] Comment on above: Performed By: #### C MP ####[facility] Uaedswxkul2780 [place] [address]Dr. Tadeo Smyth ALT [Catalytic activity/Vol] 17 U/L Normal 14-59 [facility] Comment on above: Performed By: #### C MP ####[facility] Pcqkjcavyo4826 [place] [address]Dr. Tadeo Smyth Anion gap [Moles/Vol] 12.0 mmol/L Normal Th [facility] Comment on above: Performed By: #### C MP ####[facility] Nelcmjyhwx2115 [place] [address]Dr. Tadeo Smyth AST [Catalytic activity/Vol] 16 U/L Normal 15-37 [facility] Comment on above: Performed By: #### C MP ####[facility] Abfocputqs5391 [place] [address]Dr. Tadeo Smyth Bilirubin [Mass/Vol] 0.4 mg/dL Normal 0.2-1.0 [facility] Comment on above: Performed By: #### C MP ####[facility] Lfvjohmhgz4297 [place] [address]Dr. Tadeo Smyth Calcium [Mass/Vol] 8.9 mg/dL Normal 8.5-10.1 [facility] Comment on above: Performed By: #### C MP ####[facility] Bkipbaxbga1081 [place] [address]Dr. Tadeo Smyth Chloride [Moles/Vol] 107 mmol/L Normal 98-107 [facility] Comment on above: Performed By: #### C MP ####[facility] Iturihsaro8157 [place] [address]Dr. Tadeo Smyth CO2 [Moles/Vol] 26.9 mmol/L Normal 21.0-32.0 [facility] Comment on above: Performed By: #### C MP ####[facility] Acksdjiprh8250[address] [place], [place] [address]Dr. Tadeo Smyth Creatinine [Mass/Vol] 0.82 mg/dL Normal 0.55-1.02 [facility] Comment on above: Performed By: #### C MP ####[facility] Jjyytaddma8308[address] [place], [place] [address]Dr. Tadeo Smyth EGFR-AF LITHUANIAN >60 Normal >=60 [facility] Comment on above: Performed By: #### C MP ####[facility] Xeayjcilpk8265 [place] [address]Dr. Tadeo Smyth EGFR-NON AF LITHUANIAN >60 Normal >=60 [facility] Comment on above: Performed By: #### C MP ####[facility] Dynatyaact5410 [place] [address]Dr. Tadeo Smyth Globulin (S) [Mass/Vol] 3.5 g/dL Normal [facility] Comment on above: Performed By: #### C MP ####[facility] Wzxsibnoqy9382 [place] [address]Dr. Tadeo Smyth Glucose [Mass/Vol] 104 mg/dL Normal 74-106 [facility] Comment on above: Performed By: #### C MP ####[facility] Diotcdphdl8526[address] [place], [place] [address]Dr. Margotnicole Smyth Potassium [Moles/Vol] 3.9 mmol/L Normal 3.5-5.1 [facility] Comment on above: Performed By: #### C MP ####[facility] Dlkdyfpcgr532[address] [place], [place] [address]Dr. Margotnicole Smyth Protein [Mass/Vol] 6.6 g/dL Normal 6.4-8.2 [facility] Comment on above: Performed By: #### C MP ####[facility] Vpglbyqrdu1093[address] [place], [place] [address]Dr. Margotnicole Smyth Sodium [Moles/Vol] 142 mmol/L Normal 136-145 [facility] Comment on above: Performed By: #### C MP ####[facility] Eafnswntzl4574[address] [place], [place] [address]Dr. Tadeo Smyth Urea nitrogen [Mass/Vol] 5.0 mg/dL Critically low 7.0-18.0 [facility] Comment on above: Performed By: #### C MP ####[facility] Ymnvodyyis7288[address] [place], [place] [address]Dr. Margotnicole Smyth Urea nitrogen/Creatinine [Mass ratio] 6.1 mg/mg Normal [facility] Comment on above: Performed By: #### C MP ####[facility] Yjxylbexnr589[address] [place], [place] [address]Dr. Tadeo Smyth CBC AUTO DIFFon 03-29-2022 BASO # 0.0 103/ul Normal 0.0-0.1 [facility] Comment on above: Performed By: #### C BC ####[facility] Cxbfefuhke9913[address] [place], [place] [address]Dr. Tadeo Smyth Basophils/100 WBC (Bld) 0.4 % Normal 0.2-2.0 [facility] Comment on above: Performed By: #### C BC ####[facility] Lpxagyuygm6889[address] [place], [place] [address]Dr. Tadeo Smyth EO # 0.2 103/ul Normal 0.0-0.7 [facility] Comment on above: Performed By: #### C BC ####[facility] Augtqtqypa8586 [place] [address]Dr. Tadeo Smyth Eosinophils/100 WBC (Bld) 4.3 % Normal 0.9-7.0 [facility] Comment on above: Performed By: #### C BC ####[facility] Pmeutwmwbi6069 [place] [address]Dr. Tadeo Smyth Erythrocyte distribution width (RBC) [Ratio] 12.9 % Normal 11.0-15.0 [facility] Comment on above: Performed By: #### C BC ####[facility] Kcabvjqeyc5123[address] [place], [place] [address]Dr. Tadeo Smyth Hematocrit (Bld) [Volume fraction] 33.8 % Critically low 36.0-48.0 [facility] Comment on above: Performed By: #### C BC ####[facility] Cfuscuctmg1257[address] [place], [place] [address]Dr. Tadeo Smyth Hemoglobin (Bld) [Mass/Vol] 11.1 g/dL Critically low 12.0-16.0 [facility] Comment on above: Performed By: #### C BC ####[facility] Iklttqryte2066[address] [place], [place] [address]Dr. Tadeo Smyth IG # 0.01 10e3/ul Normal 0.00-0.03 [facility] Comment on above: Performed By: #### C BC ####[facility] Iucqvxsrtw7305[address] [place], [place] [address]Dr. Tadeo Smyth IG % 0.2 % Normal 0.0-0.5 [facility] Comment on above: Performed By: #### C BC ####[facility] Mjtvwbbgqy8714[address] [place], [place] [address]Dr. Tadeo Smyth LYMPH # 1.5 103/ul Normal 1.2-3.8 [facility] Comment on above: Performed By: #### C BC ####[facility] Oxdwszoirn5910[address] [place], [place] [address]Dr. Tadeo Smyth Lymphocytes/100 WBC (Bld) 29.9 % Normal 20.5-60.0 [facility] Comment on above: Performed By: #### C BC ####[facility] Nnntlwcfvd6874 [place] [id number]. Tadeo Smyth MANUAL DIFF REQ NO Normal [facility] Comment on above: Performed By: #### C BC ####[facility] Oyncdeptkh8293 [place] [id number]. Tadeo Smyth MCH (RBC) [Entitic mass] 29.3 pg Normal 26.7-34.0 [facility] Comment on above: Performed By: #### C BC ####[facility] Xlczgtvufn9427 [place] [id number]. Tadeo Smyth MCHC (RBC) [Mass/Vol] 32.8 g/dL Normal 29.9-35.2 [facility] Comment on above: Performed By: #### C BC ####[facility] Mxqunofhut9664[address] [place], [place] [address]Dr. Tadeo Smyth MCV (RBC) [Entitic vol] 89.2 fL Normal 81.0-99.0 [facility] Comment on above: Performed By: #### C BC ####[facility] Kjsedbvgkp4965[address] [place], [place] [address]Dr. Tadeo Smyth MONO # 0.4 103/ul Normal 0.3-0.8 [facility] Comment on above: Performed By: #### C BC ####[facility] Drqdctogol2870 [place] [address]Dr. Tadeo Smyth Monocytes/100 WBC (Bld) 7.8 % Normal 1.7-12.0 [facility] Comment on above: Performed By: #### C BC ####[facility] Gqbglalbqo[address] [place], [place] [address]Dr. Tadeo Smyth NEUT # 2.8 103/ul Normal 1.4-6.5 [facility] Comment on above: Performed By: #### C BC ####[facility] Ogikbajacr0911[address] [place], [place] [address]Dr. Tadeo Smyth Neutrophils/100 WBC (Bld) 57.4 % Normal 43.0-75.0 [facility] Comment on above: Performed By: #### C BC ####[facility] Ugpuckmnzc9704 [place] [id number]. Tadeo Smyth Platelet mean volume (Bld) [Entitic vol] 8.9 fL Critically low 9.5-13.5 [facility] Comment on above: Performed By: #### C BC ####[facility] Nedidmdjxc8725 [place] [address]Dr. Tadeo Smyth PLT 314 103/ul Normal 150-450 [facility] Comment on above: Performed By: #### C BC ####[facility] Hvqltziomu4825 [place] [id number]. Tadeo Smyth RBC 3.79 106/ul Critically low 4.20-5.40 [facility] Comment on above: Performed By: #### C BC ####[facility] Vfdunifpxi7730 [place] [phone]. Tadeo Smyth WBC 4.9 103/ul Normal 4.0-11.0 [facility] Comment on above: Performed By: #### C BC ####[facility] Yyhgwvnjcr2856 [place] [phone] Smyth PROF 14(COMP METB)on 022 Albumin [Mass/Vol] 2.8 g/dL Critically low 3.4-5.0 [facility] Comment on above: Performed By: #### C MP ####[facility] Ipvmrkuwpc1417 [place] [phone] Smyth Albumin/Globulin [Mass ratio] 0.8 {ratio} Normal [facility] Comment on above: Performed By: #### C MP ####[facility] Hyondrstvb8235 [place] [id number] Smyth ALP [Catalytic activity/Vol] 117 U/L Critically high 46-116 [facility] Comment on above: Performed By: #### C MP ####[facility] Mbbzagkopf6523 [place] [address]DrNeo Smyth ALT [Catalytic activity/Vol] 13 U/L Critically low 14-59 [facility] Comment on above: Performed By: #### C MP ####[facility] Pflvefriii9992 [place] [address]Dr. Tadeo Smyth Anion gap [Moles/Vol] 8.7 mmol/L Normal [facility] Comment on above: Performed By: #### C MP ####[facility] Gtjldxauiq4883 [place] [address]Dr. Tadeo Smyth AST [Catalytic activity/Vol] 12 U/L Critically low 15-37 [facility] Comment on above: Performed By: #### C MP ####[facility] [facility] [address]mbhkvmsl[address] [place] [address]Dr. Tadeo Smyth Bilirubin [Mass/Vol] 0.4 mg/dL Normal 0.2-1.0 [facility] Comment on above: Performed By: #### C MP ####[facility] Etxxmpwhsh[address] [place], [place] [address]Dr. Tadeo Smyth Calcium [Mass/Vol] 8.5 mg/dL Normal 8.5-10.1 [facility] Comment on above: Performed By: #### C MP ####[facility] Mubxgcnjfy65[address] [place], [place] [address]Dr. Tadeo Haja Chloride [Moles/Vol] 108 mmol/L Critically high 98-107 [facility] Comment on above: Performed By: #### C MP ####[facility] Dybmbibwcu69[address] [place], [place] [address]Dr. Tadeo Smyth CO2 [Moles/Vol] 28.0 mmol/L Normal 21.0-32.0 [facility] Comment on above: Performed By: #### C MP ####[facility] Vaiubloigp[address] [place], [place] [address]Dr. Tadeo Smyth Creatinine [Mass/Vol] 0.74 mg/dL Normal 0.55-1.02 [facility] Comment on above: Performed By: #### C MP ####[facility] Vosjsvjcyu[address] [place], [place] [address]Dr. Tadeo Haja EGFR-AF LITHUANIAN >60 Normal >=60 [facility] Comment on above: Performed By: #### C MP ####[facility] Hldqcqsmmv06[address] [place] [id number]. Tadeo Smyth EGFR-NON AF LITHUANIAN >60 Normal >=60 [facility] Comment on above: Performed By: #### C MP ####[facility] Dcdeezyurj4411 [place] [id number]. Tadeo Smyth Globulin (S) [Mass/Vol] 3.4 g/dL Normal [facility] Comment on above: Performed By: #### C MP ####[facility] Vcuvmnltkm7[address] [place] [address]Dr. Tadeo Smyth Glucose [Mass/Vol] 107 mg/dL Critically high 74-106 [facility] Comment on above: Performed By: #### C MP ####[facility] Wjpvbmcjhx14[address] [place] [address]Dr. Tadeo Smyth Potassium [Moles/Vol] 3.7 mmol/L Normal 3.5-5.1 [facility] Comment on above: Performed By: #### C MP ####[facility] Gafqnkladx65[address] [place] [address]Dr. Tadeo Smyth Protein [Mass/Vol] 6.2 g/dL Critically low 6.4-8.2 [facility] Comment on above: Performed By: #### C MP ####[facility] Enteflivkk26[address] [place] [address]Dr. Tadeo Smyth Sodium [Moles/Vol] 141 mmol/L Normal 136-145 [facility] Comment on above: Performed By: #### C MP ####[facility] Izkdojgpcp17[address] [place] [address]Dr. Tadeo Smyth Urea nitrogen [Mass/Vol] 7.0 mg/dL Normal 7.0-18.0 [facility] Comment on above: Performed By: #### C MP ####[facility] Jzheqznpei39[address] [place] [address]Dr. Tadeo Smyth Urea nitrogen/Creatinine [Mass ratio] 9.5 mg/mg Normal [facility] Comment on above: Performed By: #### C MP ####[facility] Obwdzprqic0862 [place] [id number]. Margotnicole Haja XR KUB 1 VIEWon 03-29-2022 XR KUB 1 VIEW Normal [facility] CBC AUTO DIFFon 03-28-2022 BASO # 0.0 103/ul Normal 0.0-0.1 [facility] Comment on above: Performed By: #### C BC ####[facility] Robkbrcxmr5[address] [place] [address]Dr. Tadeo Smyth Basophils/100 WBC (Bld) 0.7 % Normal 0.2-2.0 [facility] Comment on above: Performed By: #### C BC ####[facility] Kejpkjmhah[address] [place], [place] [address]Dr. Tadeo Smyth EO # 0.2 103/ul Normal 0.0-0.7 [facility] Comment on above: Performed By: #### C BC ####[facility] Ilnsxdydso3856[address] [place], [place] [address]Dr. Tadeo Smyth Eosinophils/100 WBC (Bld) 3.3 % Normal 0.9-7.0 [facility] Comment on above: Performed By: #### C BC ####[facility] Bczajomjrc6323[address] [place], [place] [address]Dr. Tadeo Smyth Erythrocyte distribution width (RBC) [Ratio] 13.2 % Normal 11.0-15.0 [facility] Comment on above: Performed By: #### C BC ####[facility] Zdlltvnlwr8525[address] [place], [place] [address]Dr. Tadeo Smyth Hematocrit (Bld) [Volume fraction] 34.2 % Critically low 36.0-48.0 [facility] Comment on above: Performed By: #### C BC ####[facility] Zucyiptxbn8801[address] [place], [place] [address]Dr. Tadeo Smyth Hemoglobin (Bld) [Mass/Vol] 10.8 g/dL Critically low 12.0-16.0 [facility] Comment on above: Performed By: #### C BC ####[facility] Vrqmkjmucc7763[address] [place], [place] [address]Dr. Tadeo Smyth IG # 0.01 10e3/ul Normal 0.00-0.03 [facility] Comment on above: Performed By: #### C BC ####[facility] Frpxqjbhnf5034 [place] [address]Dr. Tadeo Smyth IG % 0.2 % Normal 0.0-0.5 [facility] Comment on above: Performed By: #### C BC ####[facility] Pkxlgirncs10[address] [place] [address]DrNeo Smyth LYMPH # 1.3 103/ul Normal 1.2-3.8 [facility] Comment on above: Performed By: #### C BC ####[facility] Mpetqdujpv8200 [place] [address]DrNeo Smyth Lymphocytes/100 WBC (Bld) 28.4 % Normal 20.5-60.0 [facility] Comment on above: Performed By: #### C BC ####[facility] Rwdeoberwq7517[address] [place], [place] [address]DrNeo Smyth MANUAL DIFF REQ NO Normal [facility] Comment on above: Performed By: #### C BC ####[facility] Jqtjltrghn9307 [place] [address]DrNeo Smyth MCH (RBC) [Entitic mass] 28.3 pg Normal 26.7-34.0 [facility] Comment on above: Performed By: #### C BC ####[facility] Bttvpuhhac9421 [place] [address]DrNeo Smyth MCHC (RBC) [Mass/Vol] 31.6 g/dL Normal 29.9-35.2 [facility] Comment on above: Performed By: #### C BC ####[facility] Axqaoceayo7847 [place] [address]DrNeo Smyth MCV (RBC) [Entitic vol] 89.5 fL Normal 81.0-99.0 [facility] Comment on above: Performed By: #### C BC ####[facility] Nifxourcld5510[address] [place], [place] [address]DrNeo Smyth MONO # 0.3 103/ul Normal 0.3-0.8 [facility] Comment on above: Performed By: #### C BC ####[facility] Qhyalasigq8233 [place] [address]Dr. Tadeo Smyth Monocytes/100 WBC (Bld) 5.5 % Normal 1.7-12.0 [facility] Comment on above: Performed By: #### C BC ####[facility] Ctrjudugyp9107 [place] [address]Dr. Tadeo Smyth NEUT # 2.8 103/ul Normal 1.4-6.5 [facility] Comment on above: Performed By: #### C BC ####[facility] Nlliwvkyhm[address] [place] [address]Dr. Tadeo Smyth Neutrophils/100 WBC (Bld) 61.9 % Normal 43.0-75.0 [facility] Comment on above: Performed By: #### C BC ####[facility] Lfplkkyurj8872 [place] [address]Dr. Tadeo Smyth Platelet mean volume (Bld) [Entitic vol] 9.1 fL Critically low 9.5-13.5 [facility] Comment on above: Performed By: #### C BC ####[facility] Kbgiisnimy59[address] [place] [address]Dr. Tadeo Smyth PLT 327 103/ul Normal 150-450 [facility] Comment on above: Performed By: #### C BC ####[facility] Thhpczwudb9290 [place] [address]Dr. Tadeo Smyth RBC 3.82 106/ul Critically low 4.20-5.40 [facility] Comment on above: Performed By: #### C BC ####[facility] Qowdzxfkth2342 [place] [phone]. Tadeo Smyth WBC 4.5 103/ul Normal 4.0-11.0 [facility] Comment on above: Performed By: #### C BC ####[facility] Dnwwvrrbas3434 [place] [phone]. Tadeo Smyth POINT OF CARE GLUCOSEon 07 Glucose [Mass/Vol] 84 mg/dL Normal 74-106 [facility] Comment on above: Performed By: #### P OCGLUC ####[facility] Ggloxhbafh1586[address] [place], [place] [address]Dr. Tadeo Smyth PROF 14(COMP METB)on 022 Albumin [Mass/Vol] 2.9 g/dL Critically low 3.4-5.0 Th [facility] Comment on above: Performed By: #### C MP ####[facility] Vvepxrypoi0594[address] [place], [place] [address]Dr. Tadeo Smyth Albumin/Globulin [Mass ratio] 0.9 {ratio} Normal [facility] Comment on above: Performed By: #### C MP ####[facility] Ndhugediuv4712[address] [place], [place] [address]Dr. Tadeo Smyth ALP [Catalytic activity/Vol] 119 U/L Critically high 46-116 [facility] Comment on above: Performed By: #### C MP ####[facility] Zjlpykaqfl563[address] [place], [place] [address]Dr. Tadeo Smyth ALT [Catalytic activity/Vol] 15 U/L Normal 14-59 [facility] Comment on above: Performed By: #### C MP ####[facility] Hmllskmyoa2311[address] [place], [place] [address]Dr. Tadeo Smyth Anion gap [Moles/Vol] 7.9 mmol/L Normal [facility] Comment on above: Performed By: #### C MP ####[facility] Evyrmzyzls4675[address] [place], [place] [address]Dr. Tadeo Smyth AST [Catalytic activity/Vol] 11 U/L Critically low 15-37 [facility] Comment on above: Performed By: #### C MP ####[facility] Dqpaaupnjq9217[address] [place], [place] [address]Dr. Tadeo Smyth Bilirubin [Mass/Vol] 0.4 mg/dL Normal 0.2-1.0 [facility] Comment on above: Performed By: #### C MP ####[facility] Lpuoqbketf197[address] [place], [place] [address]Dr. Tadeo Smyth Calcium [Mass/Vol] 8.7 mg/dL Normal 8.5-10.1 The [facility] [place] Comment on above: Performed By: #### C MP ####[facility] Ydxexmemdy5568 [place] [address]Dr. Tadeo Smyth Chloride [Moles/Vol] 109 mmol/L Critically high 98-107 [facility] Comment on above: Performed By: #### C MP ####[facility] Tlxqtkuvgc8684[address] [place], [place] [address]Dr. Tadeo Smyth CO2 [Moles/Vol] 27.9 mmol/L Normal 21.0-32.0 [facility] Comment on above: Performed By: #### C MP ####[facility] Dceflgrhgq0578[address] [place], [place] [address]Dr. Tadeo Smyth Creatinine [Mass/Vol] 0.75 mg/dL Normal 0.55-1.02 [facility] Comment on above: Performed By: #### C MP ####[facility] Quswywzooe3090[address] [place], [place] [address]Dr. Tadeo Msyth EGFR-AF LITHUANIAN >60 Normal >=60 [facility] Comment on above: Performed By: #### C MP ####[facility] Gdzcuemccs8410[address] [place], [place] [address]Dr. Tadeo Smyth EGFR-NON AF LITHUANIAN >60 Normal >=60 [facility] Comment on above: Performed By: #### C MP ####[facility] Nfmubfoqxo782[address] [place], [place] [address]Dr. Tadeo Smyth Globulin (S) [Mass/Vol] 3.3 g/dL Normal [facility] Comment on above: Performed By: #### C MP ####[facility] Wbypfdcjgj4088[address] [place], [place] [address]Dr. Tadeo Haja Glucose [Mass/Vol] 95 mg/dL Normal 74-106 The [facility] [place] Comment on above: Performed By: #### C MP ####[facility] Xyauyvlxdu264[address] [place], [place] [address]Dr. Tadeo Haja Potassium [Moles/Vol] 3.8 mmol/L Normal 3.5-5.1 [facility] Comment on above: Performed By: #### C MP ####[facility] Vchxcvkxeo9150 [place] [address]Dr. Tadeo Smyth Protein [Mass/Vol] 6.2 g/dL Critically low 6.4-8.2 Th e [facility] Comment on above: Performed By: #### C MP ####[facility] Gxvwsuvoyj5824[address] [place], [place] [address]Dr. Tadeo Smyth Sodium [Moles/Vol] 141 mmol/L Normal 136-145 [facility] Comment on above: Performed By: #### C MP ####[facility] Rywhfntmyy9183[address] [place], [place] [address]Dr. Tadeo Smyth Urea nitrogen [Mass/Vol] 8.0 mg/dL Normal 7.0-18.0 [facility] Comment on above: Performed By: #### C MP ####[facility] Afsfamkbhg9092[address] [place], [place] [address]Dr. Tadeo Smyth Urea nitrogen/Creatinine [Mass ratio] 10.7 mg/mg Normal [facility] Comment on above: Performed By: #### C MP ####[facility] Tdaclxrihm3062[address] [place], [place] [address]Dr. Tadeo Smyth UA (CLEAN/CATCH) ZUMBA INSTRUCTOR/MICRO I F IND.on 03-28-2022 Bilirubin Ql (U) Negative Normal NEGATIVE [facility] Comment on above: Performed By: #### U MARE ICRO ####[facility] Kwkopvjtjm574[address] [place], [place] [address]Dr. Tadeo Smyth Clarity (U) SL CLOUDY Abnormal CLEAR [facility] Comment on above: Performed By: #### U ACSBLANE UMICRO ####[facility] Dtvwjxzfla3453[address] [place], [place] [address]Dr. Tadeo Smyth Color (U) LT. YELLOW Normal YELLOW [facility] Comment on above: Performed By: #### U ACSBLANE UMICRO ####[facility] Dcegzsmvtd9595[address] [place], [place] [address]Dr. Tadeo Smyth Glucose Ql (U) Negative Normal NEGATIVE [facility] Comment on above: Performed By: #### U ACSIND, UMICRO ####[facility] Dvgbsyrvvb7525 [place] [address]Dr. Tadeo Smyth Hemoglobin Ql (U) TRACE-INTACT Abnormal NEGATIVE [facility] Comment on above: Performed By: #### U ACSIND, UMICRO ####[facility] Ooifqzrmcy2845 [place] [address]Dr. Tadeo Smyth Ketones Ql (U) TRACE Abnormal NEGATIVE [facility] Comment on above: Performed By: #### U ACSBLANE, UMICRO ####[facility] Dwkjijzuic0119 [place] [address]Dr. Tadeo Smyth LEUKOCYTES Negative Normal NEGATIVE [facility] Comment on above: Performed By: #### U ACSBLANE, UMICRO ####[facility] Sluqwjyymg2202 [place] [address]Dr. Tadeo Smyth Nitrite Ql (U) Negative Normal NEGATIVE [facility] Comment on above: Performed By: #### U ACSBLANE, UMICRO ####[facility] Qkonlpghvu7099 [place] [address]Dr. Tadeo Smyth pH (U) 6.5 [pH] Normal 5-9 [facility] Comment on above: Performed By: #### U ACSBLANE, UMICRO ####[facility] Znfgkmpzyv4143 [place] [address]Dr. Tadeo Smyth SPEC GRAVITY 1.015 Normal 1.005-<=1.0 25 [facility] Comment on above: Performed By: #### U ACSBLANE, UMICRO ####[facility] Cbynesgaok7392 [place] [address]Dr. Tadeo Smyth UA PROTEIN Negative Normal NEGATIVE/ TRACE [facility] Comment on above: Performed By: #### U ACSBLANE, UMICRO ####[facility] Spdvscuhco2906 [place] [address]Dr. Tadeo Smyth UR MICRO IND INDICATED Normal [facility] Comment on above: Performed By: #### U ACSBLANE, UMICRO ####[facility] Ftlgftmabt7845 [place] [address]Dr. Tadeo Smyth Urobilinogen Qn (U) 0.2 {Benito'U}/dL Normal 0.2 - 1. 0 [facility] Comment on above: Performed By: #### U MARE, UMICRO ####[facility] Shedvndhqq8634 [place] [address]Dr. Tadeo Smyth URINE MICROSCOPIC ONLYon BACTERIA MODERATE Abnormal NONE SEEN The [facility] Comment on above: Performed By: #### U MARE, UMICRO ####[facility] Jhsdompbnb088[address] [place], [place] [address]Dr. Tadeo Smyth Bacteria identified Cx Nom (U) INDICATED Normal [facility] Comment on above: Performed By: #### U ACSBLANE UMICRO ####[facility] Xfioyimbef3467[address] [place], [place] [address]Dr. Tadeo Smyth CAST NONE SEEN Normal NONE SEEN [facility] Comment on above: Performed By: #### U MARE UMICRO ####[facility] Ucufabajgy5249[address] [place], [place] [address]Dr. Tadeo Smyth Crystals LM Nom (Urine sed) NONE SEEN Normal NONE SEEN The [facility] Comment on above: Performed By: #### U MARE UMICRO ####[facility] Jsmmqijinw3149[address] [place], [place] [address]Dr. Tadeo Smyth Epithelial cells LM Ql (Urine sed) RARE Normal NONE SEEN /RARE [facility] Comment on above: Performed By: #### U MARE UMICRO ####[facility] Mvwxbirvzb7455[address] [place], [place] [address]Dr. Tadeo Smyth MUCOUS NONE SEEN Normal NONE SEEN The [facility] Comment on above: Performed By: #### U ACSBLANE UMICRO ####[facility] Jfmmrydhov6026[address] [place], [place] [address]Dr. Tadeo Smyth RBC NONE SEEN Abnormal 0-2 [facility] Comment on above: Performed By: #### U MARE UMICRO ####[facility] Gkbrqxxsig2696[address] [place], [place] [address]Dr. Tadeo Smyth WBC 2-5 Abnormal NONE SEEN The [facility] Comment on above: Performed By: #### U ACSSANDRO ARGUELLESRO ####[facility] Puojkxogeh8[address] [place] [address]Dr. Tadeo Smyth XR ABD FLAT UP_PA Kasey 03-28 XR ABD FLAT UP_PA CH Normal [facility] CBC AUTO DIFFon 03-27-2022 BASO # 0.0 103/ul Normal 0.0-0.1 [facility] Comment on above: Performed By: #### C BC ####[facility] Yyhnzudgfh88[address] [place] [address]Dr. Tadeo Smyth Basophils/100 WBC (Bld) 0.5 % Normal 0.2-2.0 [facility] Comment on above: Performed By: #### C BC ####[facility] Njjkthrwdk46[address] [place], [place] [address]Dr. Tadeo Smyth EO # 0.2 103/ul Normal 0.0-0.7 [facility] Comment on above: Performed By: #### C BC ####[facility] Dxgybsohru6286 [place] [address]Dr. Tadeo Smyth Eosinophils/100 WBC (Bld) 3.2 % Normal 0.9-7.0 [facility] Comment on above: Performed By: #### C BC ####[facility] Fjbmoycazp0235 [place] [address]Dr. Tadeo Smyth Erythrocyte distribution width (RBC) [Ratio] 13.1 % Normal 11.0-15.0 [facility] Comment on above: Performed By: #### C BC ####[facility] Dnkrlajvcx8303 [place] [address]Dr. Tadeo Smyth Hematocrit (Bld) [Volume fraction] 34.8 % Critically low 36.0-48.0 [facility] Comment on above: Performed By: #### C BC ####[facility] Msuyjmmipa6772 [place] [address]Dr. Tadeo Smyth Hemoglobin (Bld) [Mass/Vol] 11.3 g/dL Critically low 12.0-16.0 [facility] Comment on above: Performed By: #### C BC ####[facility] Faidldxewj2541 [place] [address]Dr. Tadeo Smyth IG # 0.01 10e3/ul Normal 0.00-0.03 [facility] Comment on above: Performed By: #### C BC ####[facility] Hscxrumyfh7316 [place] [id number]. Tadeo Smyth IG % 0.2 % Normal 0.0-0.5 [facility] Comment on above: Performed By: #### C BC ####[facility] Kagzopoaft0673 [place] [address]Dr. Tadeo Smyth LYMPH # 1.6 103/ul Normal 1.2-3.8 [facility] Comment on above: Performed By: #### C BC ####[facility] Mujmbdshpy5817 [place] [address]Dr. Tadeo Smyth Lymphocytes/100 WBC (Bld) 29.1 % Normal 20.5-60.0 [facility] Comment on above: Performed By: #### C BC ####[facility] Vebxnxaqhx50[address] [place] [address]Dr. Tadeo Smyth MANUAL DIFF REQ NO Normal [facility] Comment on above: Performed By: #### C BC ####[facility] Htsfdgcqzv8782 [place] [phone]. Tadeo Smyth MCH (RBC) [Entitic mass] 29.1 pg Normal 26.7-34.0 [facility] Comment on above: Performed By: #### C BC ####[facility] Qxclzulgxy5562 [place] [address]Dr. Tadeo Smyth MCHC (RBC) [Mass/Vol] 32.5 g/dL Normal 29.9-35.2 [facility] Comment on above: Performed By: #### C BC ####[facility] Nufrwhlhmc3282 [place] [address]Dr. Tadeo Smyth MCV (RBC) [Entitic vol] 89.7 fL Normal 81.0-99.0 [facility] Comment on above: Performed By: #### C BC ####[facility] Pyvzupxjfe5532 [place] [address]Dr. Tadeo Smyth MONO # 0.3 103/ul Normal 0.3-0.8 [facility] Comment on above: Performed By: #### C BC ####[facility] Giixvnquld0210 [place] [address]Dr. Tadeo Smyth Monocytes/100 WBC (Bld) 5.7 % Normal 1.7-12.0 [facility] Comment on above: Performed By: #### C BC ####[facility] Mmozjortjj9042 [place] [address]Dr. Tadeo Smyth NEUT # 3.5 103/ul Normal 1.4-6.5 [facility] Comment on above: Performed By: #### C BC ####[facility] Lqpkwsbphp0802 [place] [address]Dr. Tadeo Smyth Neutrophils/100 WBC (Bld) 61.3 % Normal 43.0-75.0 [facility] Comment on above: Performed By: #### C BC ####[facility] Twqwlbalzf8554 [place] [phone]. Tadeo Smyth Platelet mean volume (Bld) [Entitic vol] 9.1 fL Critically low 9.5-13.5 [facility] Comment on above: Performed By: #### C BC ####[facility] Wyoogaioex6707 [place] [address]Dr. Tadeo Smyth PLT 355 103/ul Normal 150-450 [facility] Comment on above: Performed By: #### C BC ####[facility] Jbleeacmzy5898 [place] [phone]. Tadeo Smyth RBC 3.88 106/ul Critically low 4.20-5.40 [facility] Comment on above: Performed By: #### C BC ####[facility] Zcxebxqbwx8444 [place] [phone]. Tadeo Smyth WBC 5.6 103/ul Normal 4.0-11.0 [facility] Comment on above: Performed By: #### C BC ####[facility] Loaxzbqfxf1549 [place], [place] [address]Xi. Tadeo Smyth CT ABD/PELV W CONon 03-27-20 CT ABD/PELV W CON Normal [facility] CT ABD/PELVIS WO CONon 03-27 CT ABD/PELVIS WO CON Normal [facility]06 SARS-CoV-2 (COVID-19) RNA CHEN+probe Ql (Unsp spec) Not detected Normal NOT DETECTED [facility] Comment on above: Result Comment: [...] for this test is supported by the [employer] of [employer] and Human Service's declaration that [...] be used). Performed By: #### C VDTB ####[facility] Lpepjohqva8590 [place] [address]Dr. Tadeo Smyth ER URINE PROFILEon Bilirubin Ql (U) Negative Normal NEGATIVE [facility] Comment on above: Performed By: #### E RUR PREGU ####[facility] Wvhdcijhqb6370 [place] [phone]. Tadeo Smyth Clarity (U) CLEAR Normal CLEAR [facility] Comment on above: Performed By: #### E RUR, PREGU ####[facility] O[address]nzjoroa[address] [place], [place] [address]Dr. Tadeo Smyth Color (U) LT. YELLOW Normal YELLOW [facility] Comment on above: Performed By: #### E RUR, PREGU ####[facility] Oskcucrdig08[address] [place], [place] [address]Dr. Tadeo ENG A micrscopic examina tion will be performed if indicated. Normal [facility] Comment on above: Performed By: #### E RUR, PREGU ####[facility] Vznbfesmah3983[address] [place], [place] [address]Dr. Tadeo Smyth Glucose Ql (U) Negative Normal NEGATIVE [facility] Comment on above: Performed By: #### E RUR, PREGU ####[facility] Wyzoxrwgah7332[address] [place], [place] [address]Dr. Tadeo Smyth Hemoglobin Ql (U) SMALL Abnormal NEGATIVE [facility] Comment on above: Performed By: #### E RUR, PREGU ####[facility] Gkuhrkkmkh0107[address] [place], [place] [address]Dr. Tadeo Smyth Ketones Ql (U) TRACE Abnormal NEGATIVE [facility] Comment on above: Performed By: #### Matthew RUR, PREGU ####[facility] Halzasaqcs32[address] [place], [place] [address]Dr. Tadeo Smyth LEUKOCYTES Negative Normal NEGATIVE [facility] Comment on above: Performed By: #### Matthew RUR, PREGU ####[facility] Qrskxsrfaz083[address] [place], [place] [address]Dr. Tadeo Smyth Nitrite Ql (U) Negative Normal NEGATIVE [facility] Comment on above: Performed By: #### Matthew RUR, PREGU ####[facility] Sgusaimnzq66[address] [place], [place] [address]Dr. Tadeo Smyth pH (U) 6.0 [pH] Normal 5-9 [facility] Comment on above: Performed By: #### Matthew RUR, PREGU ####[facility] [address] [place], [place] [address]Dr. Tadeo Smyth SPEC GRAVITY >=1.030 Abnormal 1.005-<=1.0 25 [facility] Comment on above: Performed By: #### Matthew RUR, PREGU ####[facility] Mxldfonpof[address] [place] [address]Dr. Tadeo Smyth UA PROTEIN Negative Normal NEGATIVE/ TRACE [facility] Comment on above: Performed By: #### E RUR, PREGU ####[facility] Fodncjuunz[address] [place], [place] [address]Dr. Tadeo Smyth UR MICRO IND NOT INDICATED Normal [facility] Comment on above: Performed By: #### E RUR, PREGU ####[facility] Qiofdrsqyz06[address] [place], [place] [address]Dr. Tadeo Smyth Urobilinogen Qn (U) 0.2 {Benito'U}/dL Normal 0.2 - 1. 0 [facility] Comment on above: Performed By: #### Matthew RUR, PREGU ####[facility] Jttbzbexmt[address] [place], [place] [address]Dr. Tadeo Smyth LIPASEon 03-27-2022 Lipase [Catalytic activity/Vol] 126.0 U/L Normal 73.0-393.0 [facility] Comment on above: Performed By: #### L IPA, CMP ####[facility] Gglrkgftjt[address] [place], [place] [address]Dr. Tadeo Smyth URon 03-27-2022 , QUAL Negative Normal NEGATIVE [facility] Comment on above: Performed By: #### Matthew RUR, PREGU ####[facility] Mscxkzq[address] [place], [place] [address]Dr. Tadeo Smyth PROF 14(COMP METB)on 022 Albumin [Mass/Vol] 3.6 g/dL Normal 3.4-5.0 [facility] Comment on above: Performed By: #### L IPA, CMP ####[facility] Iiytglvqaq[address] [place], [place] [address]Dr. Tadeo Smyth Albumin/Globulin [Mass ratio] 1.1 {ratio} Normal [facility] Comment on above: Performed By: #### L IPA, CMP ####[facility] Xbmeuekoao[address] [place], [place] [address]Dr. Tadeo Smyth ALP [Catalytic activity/Vol] 139 U/L Critically high 46-116 [facility] Comment on above: Performed By: #### L IPA, CMP ####[facility] Popbtvfjop[address] [place] [id number]. Tadeo Smyth ALT [Catalytic activity/Vol] 18 U/L Normal 14-59 [facility] Comment on above: Performed By: #### L IPA, CMP ####[facility] Zzlbvpozly4[address] [place] [address]Dr. Tadeo Smyth Anion gap [Moles/Vol] 10.7 mmol/L Normal [facility] Comment on above: Performed By: #### L IPA, CMP ####[facility] Vbdqlhbmod[address] [place] [address]Dr. Tadeo Smyth AST [Catalytic activity/Vol] 11 U/L Critically low 15-37 [facility] Comment on above: Performed By: #### L IPA, CMP ####[facility] Wxzbyrfwhy13[address] [place], [place] [address]Dr. Margotnicole Smyth Bilirubin [Mass/Vol] 0.2 mg/dL Normal 0.2-1.0 [facility] Comment on above: Performed By: #### L IPA, CMP ####[facility] Btvmcb[address] [place], [place] [address]Dr. Margotnicole Smyth Calcium [Mass/Vol] 9.0 mg/dL Normal 8.5-10.1 [facility] Comment on above: Performed By: #### L IPA, CMP ####[facility] Mhusktiier[address] [place] [address]Dr. Margotnicole Smyth Chloride [Moles/Vol] 106 mmol/L Normal 98-107 [facility] Comment on above: Performed By: #### L IPA, CMP ####[facility] Nngotkyswj380[address] [place] [address]Dr. Margotnicole Smyth CO2 [Moles/Vol] 26.9 mmol/L Normal 21.0-32.0 [facility] Comment on above: Performed By: #### L IPA, CMP ####[facility] Lzhizxsoyh[address] [place], [place] [address]Dr. Margotnicole Smyth Creatinine [Mass/Vol] 0.84 mg/dL Normal 0.55-1.02 [facility] Comment on above: Performed By: #### L IPA, CMP ####[facility] T[address]bzbvccj[address] [place] [address]Dr. Tadeo Smyth EGFR-AF LITHUANIAN >60 Normal >=60 [facility] Comment on above: Performed By: #### L IPA, CMP ####[facility] [address]awfsmpazf[address] [place] [address]Dr. Tadeo Smyth EGFR-NON AF LITHUANIAN >60 Normal >=60 [facility] Comment on above: Performed By: #### L IPA, CMP ####[facility] Krjtoenwxq[address] [place] [address]Dr. Tadeo Haja Globulin (S) [Mass/Vol] 3.4 g/dL Normal [facility] Comment on above: Performed By: #### L IPA, CMP ####[facility] Alsddfczql[address] [place], [place] [address]Dr. Margotnicole Haja Glucose [Mass/Vol] 96 mg/dL Normal 74-106 [facility] Comment on above: Performed By: #### L IPA, CMP ####[facility] Gjggryqcjb[address] [place], [place] [address]Dr. Tadeo Haja Potassium [Moles/Vol] 3.6 mmol/L Normal 3.5-5.1 [facility] Comment on above: Performed By: #### L IPA, CMP ####[facility] Nuwphhzdoi[address] [place], [place] [address]Dr. Tadeo Haja Protein [Mass/Vol] 7.0 g/dL Normal 6.4-8.2 [facility] [place] Comment on above: Performed By: #### L IPA, CMP ####[facility] Dcqbglwiqb[address] [place] [address]Dr. Margotnicole Smyth Sodium [Moles/Vol] 140 mmol/L Normal 136-145 [facility] [place] Comment on above: Performed By: #### L IPA, CMP ####[facility] Ddyblzhrau[address] [place], [place] [address]Dr. Tadeo Haja Urea nitrogen [Mass/Vol] 23.0 mg/dL Critically high 7.0-18.0 [facility] Comment on above: Performed By: #### L IPA, CMP ####[facility] Cofuuzbawn[address] [place] [address]Dr. Tadeo Smyth Urea nitrogen/Creatinine [Mass ratio] 27.4 mg/mg Normal [facility] Comment on above: Performed By: #### L IPA, CMP ####[facility] Hjpyffhaia[address] [place], [place] [address]Dr. Tadeo Haja GROUP A STREP CULTUREon S. pyogenes Ag Ql (Unsp spec) Normal [facility] Comment on above: Performed By: #### G RASTCX, SSCRN ####[facility] Wtztojzbxp[address] [place], [place] [address]Dr. Tadeo Haja AMYLASEon 02-02-2022 Amylase [Catalytic activity/Vol] 37 U/L Normal 25-115 [facility] Comment on above: Performed By: #### C MP, VIJI, LIPA ####[facility] Qxypoaugqr[address] [place], [place] [address]Dr. Tadeo Smyth CBC AUTO DIFFon 02-02-2022 BASO # 0.0 103/ul Normal 0.0-0.1 [facility] Comment on above: Performed By: #### C BC ####[facility] Gwwgfqhauq[address] [place], [place] [address]Dr. Tadeo Smyth Basophils/100 WBC (Bld) 0.2 % Normal 0.2-2.0 [facility] Comment on above: Performed By: #### C BC ####[facility] Kfvjphabnp[address] [place], [place] [address]Dr. Margotnicole Haja EO # 0.0 103/ul Normal 0.0-0.7 [facility] Comment on above: Performed By: #### C BC ####[facility] Jweekdgnip[address] [place] [address]Dr. Tadeo Smyth Eosinophils/100 WBC (Bld) 0.2 % Critically low 0.9-7.0 [facility] Comment on above: Performed By: #### C BC ####[facility] Uhvxzokqtp[address] [place] [address]Dr. Tadeo Smyth Erythrocyte distribution width (RBC) [Ratio] 13.4 % Normal 11.0-15.0 [facility] Comment on above: Performed By: #### C BC ####[facility] Gqiqmeowxe[address] [place] [address]Dr. Tadeo Smyth Hematocrit (Bld) [Volume fraction] 36.8 % Normal 36.0-48.0 [facility] Comment on above: Performed By: #### C BC ####[facility] Jdhyxlnqvc5[address] [place] [address]Dr. Tadeo Smyth Hemoglobin (Bld) [Mass/Vol] 11.6 g/dL Critically low 12.0-16.0 [facility] Comment on above: Performed By: #### C BC ####[facility] Epvcihmlcg[address] [place], [place] [address]Dr. Tadeo Smyth IG # 0.08 10e3/ul Critically high 0.00-0.03 [facility] Comment on above: Performed By: #### C BC ####[facility] Ozdbzhijxb[address] [place], [place] [address]Dr. Tadeo Smyth IG % 0.6 % Critically high 0.0-0.5 [facility] Comment on above: Performed By: #### C BC ####[facility] Mbxozkggng[address] [place], [place] [address]Dr. Tadeo Smyth LYMPH # 0.9 103/ul Critically low 1.2-3.8 [facility] Comment on above: Performed By: #### C BC ####[facility] [address]vowrhjo[address] [place] [address]Dr. Tadeo Smyth Lymphocytes/100 WBC (Bld) 6.9 % Critically low 20.5-60.0 [facility] Comment on above: Performed By: #### C BC ####[facility] Inrzodzzot[address] [place], [place] [address]Dr. Tadeo Smyth MANUAL DIFF REQ NO Normal [facility] Comment on above: Performed By: #### C BC ####[facility] Bgrgtjfhlz25[address] [place] [address]Dr. Tadeo Haja MCH (RBC) [Entitic mass] 28.9 pg Normal 26.7-34.0 [facility] Comment on above: Performed By: #### C BC ####[facility] Zbcyarpskz23[address] [place] [address]Dr. Tadeo Haja MCHC (RBC) [Mass/Vol] 31.5 g/dL Normal 29.9-35.2 [facility] Comment on above: Performed By: #### C BC ####[facility] Mysgekarel3522 [place] [address]Dr. Margotnicole Smyth MCV (RBC) [Entitic vol] 91.8 fL Normal 81.0-99.0 [facility] Comment on above: Performed By: #### C BC ####[facility] Yrrkygjiyx[address] [place] [address]Dr. Tadeo Smyth MONO # 0.9 103/ul Critically high 0.3-0.8 [facility] Comment on above: Performed By: #### C BC ####[facility] Lsvurbmfbg[address] [place] [address]Dr. Tadeo Smyth Monocytes/100 WBC (Bld) 6.9 % Normal 1.7-12.0 [facility] Comment on above: Performed By: #### C BC ####[facility] Ptuuenfbfh[address] [place] [address]Dr. Tadeo Smyth NEUT # 11.6 103/ul Critically high 1.4-6.5 [facility] Comment on above: Performed By: #### C BC ####[facility] Zvauxrucii38[address] [place] [address]Dr. Tadeo Smyth Neutrophils/100 WBC (Bld) 85.2 % Critically high 43.0-75.0 [facility] Comment on above: Performed By: #### C BC ####[facility] Gwiamzmits4254 [place] [address]Dr. Tadeo Smyth Platelet mean volume (Bld) [Entitic vol] 8.9 fL Critically low 9.5-13.5 [facility] Comment on above: Performed By: #### C BC ####[facility] Ks[address]ygxxam5815 [place], [place] [address]Xg. Tadeo Smyth PLT 331 103/ul Normal 150-450 [facility] Comment on above: Performed By: #### C BC ####[facility] Dfehrvrhux6068 [place], [place] [address]Zl. Tadeo Smyth RBC 4.01 106/ul Critically low 4.20-5.40 [facility] Comment on above: Performed By: #### C BC ####[facility] Bwszlelcqj[address] [place], [place] [address]Yx. Tadeo Smyth WBC 13.7 103/ul Critically high 4.0-11.0 [facility] Comment on above: Performed By: #### C BC ####[facility] Aionyztgdo5454 [place], [place] [address]Wh. Tadeo Smyth Covid-19 PCR (CVDTB)on 01-05 SARS-CoV-2 (COVID-19) RNA CHEN+probe Ql (Unsp spec) Not detected Normal NOT DETECTED [facility] Comment on above: Result Comment: [...] for this test is supported by the [place] of [employer] and Human Service's declaration [...] be used). Performed By: #### C VDTBH ####[facility] Bhufdvxsam4791 [place], [place] [address]Sm. Tadeo Smyth LIPASEon 02-02-2022 Lipase [Catalytic activity/Vol] 33.0 U/L Critically low 73.0-393.0 [facility] Comment on above: Performed By: #### C MP, VIJI, LIPA ####[facility] Wjjmtpwicf1864 [place] [address]Dr. Tadeo Smyth MONOon 02-02-2022 Monocytes (Bld) [#/Vol] Negative Normal NEGATIVE [facility] Comment on above: Performed By: #### M JESSICA ####[facility] Lzluylglxq5[address] [place] [address]Dr. Tadeo Smyth PROF 14(COMP METB)on 022 Albumin [Mass/Vol] 3.1 g/dL Critically low 3.4-5.0 [facility] Comment on above: Performed By: #### C MP, VIJI, LIPA ####[facility] Kjxwctgezp83[address] [place] [address]Dr. Tadeo Smyth Albumin/Globulin [Mass ratio] 0.9 {ratio} Normal [facility] Comment on above: Performed By: #### C MP, VIJI, LIPA ####[facility] Eonhyskiny[address] [place] [address]Dr. Tadeo Smyth ALP [Catalytic activity/Vol] 131 U/L Critically high 46-116 [facility] Comment on above: Performed By: #### C MP, VIJI, LIPA ####[facility] Endsdpqwit42[address] [place] [address]Dr. Tadeo Smyth ALT [Catalytic activity/Vol] 25 U/L Normal 14-59 [facility] Comment on above: Performed By: #### C MP, VIJI, LIPA ####[facility] Utfvatqtvv9281 [place] [address]Dr. Tadeo Smyth Anion gap [Moles/Vol] 10.0 mmol/L Normal [facility] Comment on above: Performed By: #### C MP, VIJI, LIPA ####[facility] Ncolferlsd5287 [place] [address]Dr. Tadeo Smyth AST [Catalytic activity/Vol] 19 U/L Normal 15-37 [facility] Comment on above: Performed By: #### C MP, VIJI, LIPA ####[facility] Mqxdfqqmvq6387 [place] [address]Dr. Tadeo Smyth Bilirubin [Mass/Vol] 0.6 mg/dL Normal 0.2-1.0 [facility] Comment on above: Performed By: #### C MP, VIJI, LIPA ####[facility] Nnmbaipdda1283 [place] [address]Dr. Tadeo Smyth Calcium [Mass/Vol] 8.2 mg/dL Critically low 8.5-10.1 Th [facility] Comment on above: Performed By: #### C MP, VIIJ, LIPA ####[facility] Zjxxjrglqj[address] [place], [place] [address]Dr. Tadeo Smyth Chloride [Moles/Vol] 106 mmol/L Normal 98-107 [facility] Comment on above: Performed By: #### C MP, VIJI, LIPA ####[facility] Kiwdfslokq[address] [place], [place] [address]Dr. Tadeo Smyth CO2 [Moles/Vol] 25.5 mmol/L Normal 21.0-32.0 [facility] Comment on above: Performed By: #### C MP, VIJI, LIPA ####[facility] Aduanqtobb8[address] [place], [place] [address]Dr. Tadeo Smyth Creatinine [Mass/Vol] 0.78 mg/dL Normal 0.55-1.02 [facility] Comment on above: Performed By: #### C MP, VIJI, LIPA ####[facility] Xizgbcdnvr[address] [place], [place] [address]Dr. Yilan Smyth EGFR-AF LITHUANIAN >60 Normal >=60 [facility] Comment on above: Performed By: #### C MP, VIJI, LIPA ####[facility] Eqocyprwhw[address] [place], [place] [address]Dr. Tadeo Smyth EGFR-NON AF LITHUANIAN >60 Normal >=60 [facility] Comment on above: Performed By: #### C MP, VIJI, LIPA ####[facility] Dgovuirgie2352 [place] [address]Dr. Tadeo Smyth Globulin (S) [Mass/Vol] 3.6 g/dL Normal [facility] Comment on above: Performed By: #### C MP, VIJI, LIPA ####[facility] Cpggknzhra3250 [place] [address]Dr. Tadeo Smyth Glucose [Mass/Vol] 110 mg/dL Critically high 74-106 [facility] Comment on above: Performed By: #### C MP, VIJI, LIPA ####[facility] Xrbwowamdh9499 [place] [address]Dr. Tadeo Smyth Potassium [Moles/Vol] 3.5 mmol/L Normal 3.5-5.1 [facility] Comment on above: Performed By: #### C MP, VIJI, LIPA ####[facility] Levynrtfpx8650 [place] [address]Dr. Tadeo Smyth Protein [Mass/Vol] 6.7 g/dL Normal 6.4-8.2 [facility] [place] Comment on above: Performed By: #### C MP, VIJI, LIPA ####[facility] Aodncpdjzj[address] [place] [address]Dr. Tadeo Smyth Sodium [Moles/Vol] 138 mmol/L Normal 136-145 [facility] [place] Comment on above: Performed By: #### C MP, VIJI, LIPA ####[facility] Rmspbzksxe6438 [place] [address]Dr. Tadeo Smyth Urea nitrogen [Mass/Vol] 11.0 mg/dL Normal 7.0-18.0 [facility] Comment on above: Performed By: #### C MP, VIJI, LIPA ####[facility] Gfepbgssdy20[address] [place] [address]Dr. Tadeo Smyth Urea nitrogen/Creatinine [Mass ratio] 14.1 mg/mg Normal [facility] Comment on above: Performed By: #### C MP, VIJI, LIPA ####[facility] Pdaxlbqdrq5685 [place] [address]Dr. Tadeo Smyth STREPT SCREENon 02-02-2022 STREP SCREEN A Negative Normal NEGATIVE [facility] Comment on above: Performed By: #### G RASTCX, SSCRN ####[facility] Bffmrmvgql88[address] [place], [place] [address]DpNeo Smyth BASIC METABOLIC PANELon 08-05 Calcium [Mass/Vol] 8.4 mg/dL Low 8.6-10.[address] [facility] Comment on above: Order Comment: No: D o not add to previous draw Performed By: #### 3 999, 27534 #### [facility] [address] [place] [address], [place] Chloride [Moles/Vol] 108 mmol/L High 98-[address] [facility] Comment on above: Order Comment: No: D o not add to previous draw Performed By: #### 3 163, 12385 #### [facility] [address] [place] [address], [place] CO2 [Moles/Vol] 26 mmol/L Normal 21-[address] [facility] Comment on above: Order Comment: No: D o not add to previous draw Performed By: #### 3 174, 03529 #### [facility] [address] [place] [address], [place] Creatinine [Mass/Vol] 0.79 mg/dL Normal 0.60-1.[address] [facility] Comment on above: Order Comment: No: D o not add to previous draw Performed By: #### 3 955, 36639 #### [facility] [address] [place] [address], [place] GFR/1.73 sq M predicted among blacks MDRD (S/P/Bld) [Vol rate/Area] mL/min/{1.73_m2} Normal >[address] [facility] Comment on above: Order Comment: No: D o not add to previous draw Performed By: #### 3 281, 13485 #### [facility] [address] [place] [address], [place] GFR/1.73 sq M predicted among non-blacks MDRD (S/P/Bld) [Vol rate/Area] mL/min/{1.73_m2} Normal >[address] [facility] Comment on above: Order Comment: No: D o not add to previous draw Performed By: #### 3 596, 00690 #### [facility] [address] [place] [address], [place] Glucose [Mass/Vol] 98 mg/dL Normal 70-[address] [facility] Comment on above: Order Comment: No: D o not add to previous draw Performed By: #### 3 742, 84246 #### [facility] [address] [place] [address], [place] Potassium [Moles/Vol] 3.5 mmol/L Normal 3.5-5.[address] [facility] Comment on above: Order Comment: No: D o not add to previous draw Performed By: #### 3 343, 50324 #### [facility] [address] [place] [address], [place] Sodium [Moles/Vol] 139 mmol/L Normal 136-[address] [facility] Comment on above: Order Comment: No: D o not add to previous draw Performed By: #### 3 697, 94206 #### [facility] [address] [place] [address], [place] Urea nitrogen [Mass/Vol] 11 mg/dL Normal 7-[address] [facility] Comment on above: Order Comment: No: D o not add to previous draw Performed By: #### 3 530, 31883 #### [facility] [address] [place] [address], [place] BLOOD STOOL GUAIACon 1212-2 019 BLD STOOL GUAIAC Negative Normal NEGATIVE [facility] Comment on above: Order Comment: No: D o not add to previous draw Performed By: #### 3 602, 63618 #### [facility] [address] [place] [address], [place] MAGNESIUM BLOODon 12-12-2019 Magnesium [Mass/Vol] 2.0 mg/dL Normal 1.9-2.[address] [facility] Comment on above: Order Comment: No: D o not add to previous draw Performed By: #### 3 3331, 37685 #### [facility] [address] [facility]. [address] *URINE CULTUREon 08-15-2019 Bacteria identified Cx Nom (U) Clinical Report: (D) Specimen/Source: URINE/MIDSTREAM Collected: 08/15/2019 20:40 Status: Final Last Updated: 08/17/2019 08:05 ISO (Final) Escherichia coli >100,000 Cfu/Ml ISOLATE: Escherichia coli RHONDA (mcg/ml) AMP./SULBAC (AMS) 16/8 Intermediate AMPICILLIN (AM) >16 Resistant AZTREONAM (AZM) <=1 Susceptible CEFAZOLIN (CZ) 2 Susceptible CEFTRIAXONE (TICKET SELLER) <=0.5 Susceptible CIPROFLOXACIN (CIP) >2 Resistant ESBL (-/+) (ESBL) Negative GENTAMICIN (GM) <=1 Susceptible NITROFURANTOIN (FT) <=16 Susceptible PIP/TAZO (TZP) 4/4 Susceptible TOBRAMYCIN (TOB) 1 Susceptible TRIMETH/SULFA (SXT) >2/[address] [facility] Comment on above: Performed By: #### 3 2641, 28341 #### [facility] [address] BASIC METABOLIC PANELon 08-05 Calcium [Mass/Vol] 8.8 mg/dL Normal 8.6-10.[address] [facility] Comment on above: Order Comment: No: D o not add to previous draw Performed By: #### 0 0071, 62108, 66142 #### [facility] [address] [facility] [address] Chloride [Moles/Vol] 107 mmol/L Normal 98-[address] [facility] Comment on above: Order Comment: No: D o not add to previous draw Performed By: #### 0 0071, 42391, 03921 #### [facility] [address] [place] [address], [place] CO2 [Moles/Vol] 27 mmol/L Normal 21-[address] [facility] Comment on above: Order Comment: No: D o not add to previous draw Performed By: #### 0 0071, 75732, 70825 #### [facility] [address] [place] [address], [place] Creatinine [Mass/Vol] 0.99 mg/dL Normal 0.60-1.[address] [facility] Comment on above: Order Comment: No: D o not add to previous draw Performed By: #### 0 0071, 12235, 01091 #### [facility] [address] [place] [address], [facility] GFR/1.73 sq M predicted among blacks MDRD (S/P/Bld) [Vol rate/Area] mL/min/{1.73_m2} Normal >[address] [facility] Comment on above: Order Comment: No: D o not add to previous draw Performed By: #### 0 0071, 00363, 57657 #### [facility] [address] [place] [address], [facility] GFR/1.73 sq M predicted among non-blacks MDRD (S/P/Bld) [Vol rate/Area] 59 ml/min/1.73sq m Abnormal >[address] [facility] Comment on above: Order Comment: No: D o not add to previous draw Performed By: #### 0 0071, 55180, 38725 #### [facility] [address] [place] [address], [place] Glucose [Mass/Vol] 100 mg/dL Normal 70-[address] [facility] Comment on above: Order Comment: No: D o not add to previous draw Performed By: #### 0 0071, 83637, 61335 #### [facility] [address] [place] [address], [facility] Potassium [Moles/Vol] 3.6 mmol/L Normal 3.5-5.[address] [facility] Comment on above: Order Comment: No: D o not add to previous draw Performed By: #### 0 0071, 80531, 21727 #### [facility] [address] [place] [address], [facility] Sodium [Moles/Vol] 140 mmol/L Normal 136-[address] [facility] Comment on above: Order Comment: No: D o not add to previous draw Performed By: #### 0 0071, 29816, 98016 #### [facility] [address] [place] [address], [facility] Urea nitrogen [Mass/Vol] 9 mg/dL Normal 7-[address] [facility] Comment on above: Order Comment: No: D o not add to previous draw Performed By: #### 0 0071, 25801, 85063 #### [facility] [address] [place] [id number], [facility] LACTATE BLOODon 08-15-2019 Lactate [Moles/Vol] 0.8 mmol/L Normal 0.5-2.[address] [facility] Comment on above: Order Comment: Yes: Add to Previous draw if able Performed By: #### 1 0054 #### [facility] [address] [place] [address], [facility] LMWH HEPARIN ASSAYon 019 LOW MOLECULAR WEIGHT HEPARIN 0.32 IU/mL Low 0.60-1.[address] [facility] Comment on above: Order Comment: (draw [...] and LMWH. Performed By: #### 3 6901, 03191 #### [facility] [address] [facility] [place] [address], [facility] MAGNESIUM BLOODon 08-15-2019 Magnesium [Mass/Vol] 1.7 mg/dL Low 1.9-2.[address] [facility] Comment on above: Order Comment: No: D o not add to previous draw Performed By: #### 0 0071, 12513, 05366 #### [facility] [address] [facility] [place] [address], [facility] PHOSPHORUS BLOODon 9 Phosphate [Mass/Vol] 4.1 mg/dL Normal 2.5-5.[address] [facility] Comment on above: Order Comment: No: D o not add to previous draw Performed By: #### 0 0071, 70163, 19521 #### [facility] [address] UGI WITH SMALL BOWELon 08-15 UGI WITH SMALL BOWEL [facility] Department of Radiology [address] [place] [id number] Patient Name: CONSTANTINO CARDOSO : 1970 Sex: F Age: Race: White Pt. Location: [address] [place] [address] Patient Status: O Ordered Date: 08/15/2019 10:45:00 [...] ischemia. Electronically signed by:Orestes Condon. Transcribed by: [email or web address], User Resident: Electronically Signed by: ORESTES CONDON @ 08/15/2019 04:[address] [facility] Comment on above: Order Comment: R/O O bstruction URINALYSIS REFLEXon 08-15-20 19 Appearance (U) SL CLOUDY Abnormal CLEAR [facility] Comment on above: Order Comment: No: D o not add to previous drawCriteria for reflexing a culture was met. Urine Culture and sensitivitywill be performed. Performed By: #### 3 6871, 88735 #### [facility] [address] [place] [address], [place] Bilirubin [Mass/Vol] Negative Normal NEGATIVE [facility] Comment on above: Order Comment: No: D o not add to previous drawCriteria for reflexing a culture was met. Urine Culture and sensitivitywill be performed. Performed By: #### 3 622, 50780 #### [facility] [address] [place] [address], [facility] BLOOD SMALL Abnormal NEGATIVE [facility] Comment on above: Order Comment: No: D o not add to previous drawCriteria for reflexing a culture was met. Urine Culture and sensitivitywill be performed. Performed By: #### 3 Gely, 61584 #### [facility] [address] [place] [address], [facility] Color (U) YELLOW Normal YELLOW [facility] Comment on above: Order Comment: No: D o not add to previous drawCriteria for reflexing a culture was met. Urine Culture and sensitivitywill be performed. Performed By: #### 3 349, 20001 #### [facility] [address] [place] [address], [place] EPIS OCC Normal FEW,OCC,NON E SEEN [facility] Comment on above: Order Comment: No: D o not add to previous drawCriteria for reflexing a culture was met. Urine Culture and sensitivitywill be performed. Performed By: #### 3 985, 58457 #### [facility] [address] [place] [address], [place] Glucose [Mass/Vol] Negative Normal NEGATIVE [facility] Comment on above: Order Comment: No: D o not add to previous drawCriteria for reflexing a culture was met. Urine Culture and sensitivitywill be performed. Performed By: #### 3 744, 16820 #### [facility] [address] [place] [address], [place] HYALINE CASTS 6-10 Abnormal NONE SEEN [facility] Comment on above: Order Comment: No: D o not add to previous drawCriteria for reflexing a culture was met. Urine Culture and sensitivitywill be performed. Performed By: #### 3 2751, 18142 #### [facility] [address] [place] [address], [facility] KETONE Negative Normal NEGATIVE [facility] Comment on above: Order Comment: No: D o not add to previous drawCriteria for reflexing a culture was met. Urine Culture and sensitivitywill be performed. Performed By: #### 3 6901, 88159 #### [facility] [address] [place] [address], [facility] LEUK JONN MODERATE Abnormal NEGATIVE [facility] Comment on above: Order Comment: No: D o not add to previous drawCriteria for reflexing a culture was met. Urine Culture and sensitivitywill be performed. Performed By: #### 3 8271, 56573 #### [facility] [address] [facility] [place] [address], [facility] MUCUS THREADS FEW Abnormal NONE SEEN [facility] Comment on above: Order Comment: No: D o not add to previous drawCriteria for reflexing a culture was met. Urine Culture and sensitivitywill be performed. Performed By: #### 3 0941, 79206 #### [facility] [address] [facility] [place] [address], [facility] Nitrite Ql (U) Negative Normal NEGATIVE [facility] Comment on above: Order Comment: No: D o not add to previous drawCriteria for reflexing a culture was met. Urine Culture and sensitivitywill be performed. Performed By: #### 3 5711, 82398 #### [facility] [address] [place] [address], [facility] pH (Bld) 5.0 Normal 5.0-8.[address] [facility] Comment on above: Order Comment: No: D o not add to previous drawCriteria for reflexing a culture was met. Urine Culture and sensitivitywill be performed. Performed By: #### 3 9891, 86692 #### [facility] [address] [place] [address], [facility] Protein (U) [Mass/Vol] Negative Normal NEGATIVE [facility] Comment on above: Order Comment: No: D o not add to previous drawCriteria for reflexing a culture was met. Urine Culture and sensitivitywill be performed. Performed By: #### 3 690, 04383 #### [facility] [address] [place] [id number], [facility] RBC (U) [#/Vol] 6-10 Abnormal NONE SEEN [facility] Comment on above: Order Comment: No: D o not add to previous drawCriteria for reflexing a culture was met. Urine Culture and sensitivitywill be performed. Performed By: #### 3 6901, 88091 #### [facility] [address] [facility] [address] SPEC GRAV 1.025 High 1.015-1.[address] [facility] Comment on above: Order Comment: No: D o not add to previous drawCriteria for reflexing a culture was met. Urine Culture and sensitivitywill be performed. Performed By: #### 3 6901, 51073 #### [facility] [address] [facility] [place] [address], [facility] WBC UA 51-100 Abnormal [address]EN [facility] Comment on above: Order Comment: No: D o not add to previous drawCriteria for reflexing a culture was met. Urine Culture and sensitivitywill be performed. Performed By: #### 3 6901, 98046 #### [facility] [address] [place] [address], [facility] CBC COMPLETE BLOOD COUNTon 10-15-2018 Erythrocyte distribution width (RBC) [Ratio] 12.7 % Normal 11.5-15.[address] [facility] Comment on above: Order Comment: No: D o not add to previous draw Performed By: #### 5 0608 #### [facility] [address] [place] [address], [facility] Hematocrit (Bld) [Volume fraction] 31.2 % Low 36.0-45.[address] [facility] Comment on above: Order Comment: No: D o not add to previous draw Performed By: #### 5 0608 #### [facility] [address] [place] [id number], [facility] Hemoglobin (Bld) [Mass/Vol] 9.8 g/dL Low 12.0-15.[address] [facility] Comment on above: Order Comment: No: D o not add to previous draw Performed By: #### 5 0608 #### [facility] [address] [facility] [place] [address], [facility] MCH (RBC) [Entitic mass] 29.1 pg Normal 27.0-33.[address] [facility] Comment on above: Order Comment: No: D o not add to previous draw Performed By: #### 5 0608 #### [facility] [address] [facility] [place] [address], [facility] MCHC (RBC) [Mass/Vol] 31.4 g/dL Low 32.0-35.[address] [facility] Comment on above: Order Comment: No: D o not add to previous draw Performed By: #### 5 0608 #### [facility] [address] [facility] [place] [address], [facility] MCV (RBC) [Entitic vol] 92.6 fL Normal 82.0-98.[address] [facility] Comment on above: Order Comment: No: D o not add to previous draw Performed By: #### 5 0608 #### [facility] [address] [facility] [place] [address], [facility] Nucleated RBC/100 WBC (Bld) [Ratio] 0 % Normal 0-[address] [facility] Comment on above: Order Comment: No: D o not add to previous draw Performed By: #### 5 0608 #### [facility] [address] PLAT CNT 340 10*3/uL Normal 150-[address] [facility] Comment on above: Order Comment: No: D o not add to previous draw Performed By: #### 5 0608 #### [facility] [address] RBC (Bld) [#/Vol] 3.37 10*6/uL Low 3.80-5.[address] [facility] Comment on above: Order Comment: No: D o not add to previous draw Performed By: #### 5 0608 #### [facility] [address] WBC (Bld) [#/Vol] 6.04 10*3/uL Normal 4.00-10.[address] [facility] Comment on above: Order Comment: No: D o not add to previous draw Performed By: #### 5 0608 #### [facility] [address] PROTHROMBIN TIMEon 12-10-201 9 INR Coag (PPP) [Relative time] 1.09 {INR} Normal 0.91-1.[address] [facility] Comment on above: Order Comment: No: [...] 1995;[id number]. Performed By: #### 5 6101 #### [facility] [address] [facility] [place] [address], [facility] PT Coag (PPP) [Time] 14.1 s Normal 12.3-14.[address] [facility] Comment on above: Order Comment: No: D o not add to previous draw Result Comment: ALL RESULTS MUST BE INTERPRETED WITH RESPECT TO BLOOD DRAWING ARTIFACT OR DILUTION ERROR OF ANTICOAGULANT AT THE TIME OF SAMPLING. Performed By: #### 5 6101 #### [facility] [address] [place] [address], [facility] LIVERon 08-14-2019 [facility] Department of Radiology [address] [place] [id number] Patient Name: CONSTANTINO CARDOSO : 1970 Sex: F Age: Race: White Pt. Location: [id number] Patient Status: O Ordered Date: 08/13/2019 8:30:00 [...] cholecystectomy. Electronically signed by:Orestes Condon. Transcribed by: [email or web address], User Resident: Electronically Signed by: ORESTES CONDON @ 08/14/2019 02:[address] [facility] Comment on above: Order Comment: R/O S tones BASIC METABOLIC PANELon 12-0 Calcium [Mass/Vol] 9.4 mg/dL Normal 8.6-10.[address] [facility] Comment on above: Order Comment: No: D o not add to previous draw Performed By: #### 3 9541, 16552 #### [facility] [address] [place] [address], [place] Chloride [Moles/Vol] 105 mmol/L Normal 98-[address] [facility] Comment on above: Order Comment: No: D o not add to previous draw Performed By: #### 3 7863, 25099 #### [facility] [address] [place] [address], [place] CO2 [Moles/Vol] 26 mmol/L Normal 21-[address] [facility] Comment on above: Order Comment: No: D o not add to previous draw Performed By: #### 3 0938, 20675 #### [facility] [address] [place] [address], [place] Creatinine [Mass/Vol] 1.03 mg/dL Normal 0.60-1.[address] [facility] Comment on above: Order Comment: No: D o not add to previous draw Performed By: #### 3 8771, 67675 #### [facility] [address] [place] [address], [place] GFR/1.73 sq M predicted among blacks MDRD (S/P/Bld) [Vol rate/Area] mL/min/{1.73_m2} Normal >[address] [facility] Comment on above: Order Comment: No: D o not add to previous draw Performed By: #### 3 401, 64871 #### [facility] [address] [place] [address], [place] GFR/1.73 sq M predicted among non-blacks MDRD (S/P/Bld) [Vol rate/Area] 57 ml/min/1.73sq m Abnormal >[address] [facility] Comment on above: Order Comment: No: D o not add to previous draw Performed By: #### 3 627, 64097 #### [facility] [address] [place] [address], [place] Glucose [Mass/Vol] 96 mg/dL Normal 70-[address] [facility] Comment on above: Order Comment: No: D o not add to previous draw Performed By: #### 3 945, 30036 #### [facility] [address] [place] [address], [place] Potassium [Moles/Vol] 4.1 mmol/L Normal 3.5-5.[address] [facility] Comment on above: Order Comment: No: D o not add to previous draw Performed By: #### 3 164, 06668 #### [facility] [address] [place] [address], [place] Sodium [Moles/Vol] 138 mmol/L Normal 136-[address] [facility] Comment on above: Order Comment: No: D o not add to previous draw Performed By: #### 3 592, 55831 #### [facility] [address] [place] [address], [place] Urea nitrogen [Mass/Vol] 16 mg/dL Normal 7-[address] [facility] Comment on above: Order Comment: No: D o not add to previous draw Performed By: #### 3 6901, 01022 #### [facility] [address] [place] [address], [facility] CBC W/DIFFon 08-13-2019 ABS BASOPHILS 0.0 10*3/uL Normal 0.0-0.[address] [facility] Comment on above: Order Comment: No: D o not add to previous draw Performed By: #### 5 0103 #### [facility] [address] [place] [address], [facility] ABS IMM GRANS 0.0 10*3/uL Normal 0.0-0.[address] [facility] Comment on above: Order Comment: No: D o not add to previous draw Performed By: #### 5 0103 #### [facility] [address] [place] [address], [facility] ABS NEUTROPHILS 4.0 10*3/uL Normal 1.6-7.[address] [facility] Comment on above: Order Comment: No: D o not add to previous draw Performed By: #### 5 0103 #### [facility] [address] [place] [address], [facility] Basophils/100 WBC (Bld) 0.5 % Normal 0.0-1.[address] [facility] Comment on above: Order Comment: No: D o not add to previous draw Performed By: #### 5 0103 #### [facility] [address] [place] [address], [facility] Eosinophils (Bld) [#/Vol] 0.2 10*3/uL Normal 0.0-0.[address] [facility] Comment on above: Order Comment: No: D o not add to previous draw Performed By: #### 5 0103 #### [facility] [address] [place] [address], [facility] Eosinophils/100 WBC (Bld) 3.3 % Normal 0.0-6.[address] [facility] Comment on above: Order Comment: No: D o not add to previous draw Performed By: #### 5 0103 #### [facility] [address] [facility] [place] [address], [facility] Erythrocyte distribution width (RBC) [Ratio] 12.7 % Normal 11.5-15.[address] [facility] Comment on above: Order Comment: No: D o not add to previous draw Performed By: #### 5 0103 #### [facility] [address] [place] [address], [facility] Hematocrit (Bld) [Volume fraction] 33.4 % Low 36.0-45.[address] [facility] Comment on above: Order Comment: No: D o not add to previous draw Performed By: #### 5 0103 #### [facility] [address] [facility] [address], [facility] Hemoglobin (Bld) [Mass/Vol] 10.5 g/dL Low 12.0-15.[address] [facility] Comment on above: Order Comment: No: D o not add to previous draw Performed By: #### 5 0103 #### [facility] [address] [facility] [place] [address], [facility] IMMATURE GRANS 0.2 % Normal 0.0-1.[address] [facility] Comment on above: Order Comment: No: D o not add to previous draw Performed By: #### 5 0103 #### [facility] [address] [facility] [place] [address], [facility] Lymphocytes (Bld) [#/Vol] 1.8 10*3/uL Normal 1.2-4.[address] [facility] Comment on above: Order Comment: No: D o not add to previous draw Performed By: #### 5 0103 #### [facility] [address] [place] [address], [facility] Lymphocytes/100 WBC (Bld) 28.2 % Normal 20.0-45.[address] [facility] Comment on above: Order Comment: No: D o not add to previous draw Performed By: #### 5 0103 #### [facility] [address] [place] [id number], [facility] MCH (RBC) [Entitic mass] 28.9 pg Normal 27.0-33.[address] [facility] Comment on above: Order Comment: No: D o not add to previous draw Performed By: #### 5 0103 #### [facility] [address] [place] [id number], [facility] MCHC (RBC) [Mass/Vol] 31.4 g/dL Low 32.0-35.[address] [facility] Comment on above: Order Comment: No: D o not add to previous draw Performed By: #### 5 0103 #### [facility] [address] [place] [address], [facility] MCV (RBC) [Entitic vol] 92.0 fL Normal 82.0-98.[address] [facility] Comment on above: Order Comment: No: D o not add to previous draw Performed By: #### 5 0103 #### [facility] [address] [facility] [place] [address], [facility] Monocytes (Bld) [#/Vol] 0.4 10*3/uL Normal 0.1-1.[address] [facility] Comment on above: Order Comment: No: D o not add to previous draw Performed By: #### 5 0103 #### [facility] [address] [place] [address], [facility] MONOS 6.2 % Normal 5.0-12.[address] [facility] Comment on above: Order Comment: No: D o not add to previous draw Performed By: #### 5 0103 #### [facility] [address] [place] [id number], [facility] Neutrophils/100 WBC (Bld) 61.6 % Normal 40.0-72.[address] [facility] Comment on above: Order Comment: No: D o not add to previous draw Performed By: #### 5 0103 #### [facility] [address] [place] [address], [facility] Nucleated RBC/100 WBC (Bld) [Ratio] 0 % Normal 0-[address] [facility] Comment on above: Order Comment: No: D o not add to previous draw Performed By: #### 5 0103 #### [facility] [address] [place] [address], [facility] PLAT CNT 382 10*3/uL Normal 150-[address] [facility] Comment on above: Order Comment: No: D o not add to previous draw Performed By: #### 5 0103 #### [facility] [address] [place] [address], [facility] RBC (Bld) [#/Vol] 3.63 10*6/uL Low 3.80-5.[address] [facility] Comment on above: Order Comment: No: D o not add to previous draw Performed By: #### 5 0103 #### [facility] [address] [place] [address], [facility] WBC (Bld) [#/Vol] 6.45 10*3/uL Normal 4.00-10.[address] [facility] Comment on above: Order Comment: No: D o not add to previous draw Performed By: #### 5 0103 #### [facility] [address] [place] [id number], [facility] LIPASE BLOODon 08-13-2019 Lipase [Catalytic activity/Vol] 13 Units/L Normal 11-[address] [facility] Comment on above: Performed By: #### 3 2571, 55490 #### [facility] [address] [facility] [place] [address], [facility] Vital Signs Date Time Vital Sign Value Performing Clinician Facility 11-26-2024 10:51-0400 Body height 170.2 cm Nikki HAQ Work Phone: [facility] 11-26-2024 10:51-0400 Body mass index (BMI) [Ratio] 30.23 kg/m2 Nikki Ayoub PA Work Phone: [facility] 11-26-2024 10:51-0400 Body weight 87.54 kg Nikkimatthew Ayoub PA Work Phone: [facility] 11-26-2024 10:51-0400 Diastolic blood pressure 84 mm[Hg] Nikki Ayoub PA Work Phone: [facility] 11-26-2024 10:51-0400 Heart rate 77 /min Nikki Ayoub PA Work Phone: [facility] 11-26-2024 10:51-0400 Respiratory rate 16 /min Nikki Mega PA Work Phone: [facility] 11-26-2024 10:51-0400 SaO2% (BldA) [Mass fraction] 99 % Nikki Mega PA Work Phone: [facility] 11-26-2024 10:51-0400 Systolic blood pressure 124 mm[Hg] Nikki Mega PA Work Phone: [facility] 10-20-2024 18:00-0500 Hourly Rounding [facility] 10-20-2024 18:00-0500 Promise to Return [facility] 10-20-2024 17:00-0500 Hourly Rounding [facility] 10-20-2024 17:00-0500 Promise to Return [facility] 10-20-2024 16:00-0500 Hourly Rounding [facility] 10-20-2024 16:00-0500 Promise to Return [facility] 10-20-2024 13:48-0500 SaO2% (BldA) [Mass fraction] 96 % [facility] 10-20-2024 11:46-0500 Heart rate 54 /min [facility] 10-20-2024 11:46-0500 SaO2% (BldA) [Mass fraction] 96 % [facility] 10-20-2024 11:44-0500 Diastolic blood pressure 78 mm[Hg] [facility] 10-20-2024 11:44-0500 Mean blood pressure 95 mm[Hg] [facility] 10-20-2024 11:44-0500 Systolic blood pressure 127 mm[Hg] [facility] 10-20-2024 11:44-0500 Body temperature 97.7 [degF] [facility] 10-20-2024 10:24-0500 Diastolic blood pressure 80 mm[Hg] [facility] 10-20-2024 10:24-0500 Heart rate 77 /min [facility] 10-20-2024 10:24-0500 Systolic blood pressure 129 mm[Hg] [facility] 10-20-2024 07:55-0500 Heart rate 49 /min [facility] 10-20-2024 07:55-0500 SaO2% (BldA) [Mass fraction] 97 % [facility] 10-20-2024 07:53-0500 Mean blood pressure 97 mm[Hg] [facility] 10-20-2024 07:53-0500 Body temperature 97.52 [degF] [facility] 10-20-2024 04:00-0500 gluc 93 mg/dL [facility] 10-20-2024 03:57-0500 Heart rate 54 /min [facility] 10-20-2024 03:56-0500 Mean blood pressure 80 mm[Hg] [facility] 10-20-2024 03:56-0500 Body temperature 98.06 [degF] [facility] 10-20-2024 03:12-0500 Heart rate 49 /min [facility] 10-20-2024 03:12-0500 Mean blood pressure 98 mm[Hg] [facility] 10-20-2024 03:12-0500 Respiratory rate 16 /min [facility] 10-20-2024 01:00-0500 Heart rate 58 /min [facility] 10-20-2024 01:00-0500 Mean blood pressure 81 mm[Hg] [facility] 10-20-2024 00:00-0500 gluc 93 mg/dL [facility] 10-19-2024 23:00-0500 Heart rate 61 /min [facility] 10-19-2024 23:00-0500 Mean blood pressure 79 mm[Hg] [facility] 10-19-2024 20:30-0500 Body temperature 98.06 [degF] [facility] Comment on above: Result Comment: Patient arrives to room 212. Oriented to room. 10-19-2024 20:30-0500 Respiratory rate 16 /min [facility] 10-19-2024 19:00-0500 Respiratory rate 22 /min [facility] 10-19-2024 17:21-0500 Body temperature 98.42 [degF] [facility] [facility] 08-30-2024 07:25-0500 Body temperature 97.9 [degF] Pete Otto MD [facility] [employer] 08-30-2024 07:25-0500 Diastolic blood pressure 89 mm[Hg] Pete Otto MD Work Phone: [facility] [employer] 08-30-2024 07:25-0500 Heart rate 61 /min Pete Otto MD Work Phone: [facility] [employer] 08-30-2024 07:25-0500 Respiratory rate 16 /min Pete Otto MD Work Phone: [facility] [employer] 08-30-2024 07:25-0500 SaO2% (BldA) [Mass fraction] 96 % Pete Otto MD Work Phone: [facility] [employer] 08-30-2024 07:25-0500 Systolic blood pressure 144 mm[Hg] Pete Otto MD Work Phone: [facility] [employer] 08-28-2024 16:30-0500 Body height 170.2 cm Pete Otto MD Work Phone: [facility] [employer] 08-28-2024 16:30-0500 Body mass index (BMI) [Ratio] 28.82 kg/m2 Pete Otto MD Work Phone: [facility] [employer] 08-28-2024 16:30-0500 Body weight 83.5 kg Pete Otto MD Work Phone: [facility] [employer] 08-17-2024 13:40-0500 Body temperature 97.7 [degF] Justin Lucero MD Work Phone: [facility] [employer] 08-17-2024 13:40-0500 Diastolic blood pressure 89 mm[Hg] Justin Lucero MD Work Phone: [facility] [employer] 08-17-2024 13:40-0500 Heart rate 68 /min Justin Lucero MD Work Phone: [facility] [employer] 08-17-2024 13:40-0500 Respiratory rate 12 /min Justin Lucero MD Work Phone: [facility] [employer] 08-17-2024 13:40-0500 SaO2% (BldA) [Mass fraction] 99 % Justin Lucero MD Work Phone: [facility] [employer] 08-17-2024 13:40-0500 Systolic blood pressure 159 mm[Hg] Justin Lucero MD Work Phone: [facility] [employer] 08-17-2024 11:29-0500 Body height 170.2 cm Justin Lucero MD Work Phone: [facility] [employer] 08-17-2024 11:29-0500 Body mass index (BMI) [Ratio] 29.75 kg/m2 Justin Lucero MD Work Phone: [facility] [employer] 08-17-2024 11:29-0500 Body weight 86.18 kg Justin Lucero MD Work Phone: [facility] [employer] 07-13-2024 11:29-0500 Body height 170.2 cm Kulwant Hodge MD Work Phone: [facility] 07-13-2024 11:29-0500 Body mass index (BMI) [Ratio] 29.44 kg/m2 Kulwant Hodge MD Work Phone: [facility] 07-13-2024 11:29-0500 Body weight 85.28 kg Kulwant Hodge MD Work Phone: [facility] 07-13-2024 11:29-0500 Diastolic blood pressure 70 mm[Hg] Kulwant Hodge MD Work Phone: [facility] 07-13-2024 11:29-0500 Heart rate 68 /min Kulwant Hodge MD Work Phone: [facility] Comment on above: 02 SAT 96% 07-13-2024 11:29-0500 Respiratory rate 16 /min Kulwant Hodge MD Work Phone: [facility] 07-13-2024 11:29-0500 Systolic blood pressure 116 mm[Hg] Kulwant Hodge MD Work Phone: [facility] 06-20-2024 11:08-0400 Body height 170.2 cm Kulwant Hodge MD Work Phone: [facility] 06-20-2024 11:08-0400 Body mass index (BMI) [Ratio] 28.98 kg/m2 Kulwant Hodge MD Work Phone: [facility] 06-20-2024 11:08-0400 Body weight 83.92 kg Kulwant Hodge MD Work Phone: [facility] 06-20-2024 11:08-0400 Diastolic blood pressure 92 mm[Hg] Kulwant Hodge MD Work Phone: [facility] 06-20-2024 11:08-0400 Heart rate 62 /min Kulwant Hodge MD Work Phone: [facility] 06-20-2024 11:08-0400 Respiratory rate 16 /min Kulwant Hodge MD Work Phone: [facility] 06-20-2024 11:08-0400 Systolic blood pressure 140 mm[Hg] Kulwant Hodge MD Work Phone: [facility] 05-11-2024 10:50-0400 Diastolic blood pressure 80 mm[Hg] SLICE CUTTING MACHINE OPERATOR-C Judi Mikael Work Phone: [facility] 05-11-2024 10:50-0400 Heart rate 67 /min SLICE CUTTING MACHINE OPERATOR-C Judi Mikael Work Phone: [facility] 05-11-2024 10:50-0400 Respiratory rate 16 /min SLICE CUTTING MACHINE OPERATOR-C Judi Mikael Work Phone: [facility] 05-11-2024 10:50-0400 SaO2% (BldA) [Mass fraction] 100 % SLICE CUTTING MACHINE OPERATOR-C Judi Ugaldemer Work Phone: [facility] 05-11-2024 10:50-0400 Systolic blood pressure 130 mm[Hg] SLICE CUTTING MACHINE OPERATOR-C Judi Ugaldemer Work Phone: [facility] 05-11-2024 08:23-0400 Body height 170.18 cm SLICE CUTTING MACHINE OPERATOR-C Judi Youssef Work Phone: [facility] 05-11-2024 08:23-0400 Body weight 81.64 kg SLICE CUTTING MACHINE OPERATOR-C Judi Youssef Work Phone: [facility] 04-26-2024 08:27-0400 Body height 170.18 cm [facility] 04-26-2024 08:27-0400 Body mass index (BMI) [Ratio] 28.5 kg/m2 [facility] 04-26-2024 08:27-0400 Body weight 82.55 kg [facility] 04-26-2024 08:27-0400 Diastolic blood pressure 82 mm[Hg] [facility] 04-26-2024 08:27-0400 Heart rate 59 /min [facility] 04-26-2024 08:27-0400 Systolic blood pressure 132 mm[Hg] [facility] 02-16-2024 09:03-0400 Blood Pressure Location Yolanda GoldmanUni2 [facility] 02-16-2024 09:03-0400 Body temperature 97.7 [degF] Yolanda Lou [facility] 02-16-2024 09:03-0400 Diastolic blood pressure 84 mm[Hg] Yolanda Orzech [facility] 02-16-2024 09:03-0400 Heart rate 78 /min Yolanda Orzech [facility] 02-16-2024 09:03-0400 Systolic blood pressure 128 mm[Hg] Yolanda Orzech [facility] 07-22-2023 13:19-0500 Body height 170.[address] Work Phone: [facility] 07-22-2023 13:19-0500 Body weight 83.[address] Work Phone: [facility] 07-14-2023 11:40-0500 Diastolic blood pressure 95 mm[Hg] Marques Bradley MD Work Phone: [facility] 07-14-2023 11:40-0500 Heart rate 56 /min Marques Bradley MD Work Phone: [facility] 07-14-2023 11:40-0500 Respiratory rate 16 /min Marques Bradley MD Work Phone: [facility] 07-14-2023 11:40-0500 SaO2% (BldA) [Mass fraction] 97 % Marques Bradley MD Work Phone: [facility] 07-14-2023 11:40-0500 Systolic blood pressure 158 mm[Hg] Marques Bradley MD Work Phone: [facility] 07-14-2023 11:10-0500 Body temperature 97.2 [degF] Marques Bradley MD Work Phone: [facility] 07-14-2023 08:34-0500 Body height 170.2 cm Marques Bradley MD Work Phone: [facility] 07-14-2023 08:34-0500 Body weight 88 kg Marques Bradley MD Work Phone: [facility] 04-21-2023 09:30-0400 Body height 170.18 cm Renny Omalley Other [email or web address] Other 04-21-2023 09:30-0400 Body mass index (BMI) [Ratio] 31.21 kg/m2 Renny Omalley Other [email or web address] Other 04-21-2023 09:30-0400 Body weight 90.4 kg Renny Omalley Other [email or web address] Other 04-21-2023 09:30-0400 Diastolic blood pressure 78 mm[Hg] Renny Omalley Other [email or web address] Other 04-21-2023 09:30-0400 Systolic blood pressure 130 mm[Hg] Renny Omalley Other [email or web address] Other 03-23-2023 07:33-0400 Diastolic blood pressure 80 mm[Hg] SLICE CUTTING MACHINE OPERATOR-C Judi Mikael Work Phone: [facility] 03-23-2023 07:33-0400 Heart rate 81 /min SLICE CUTTING MACHINE OPERATOR-C Judi Mikael Work Phone: [facility] 03-23-2023 07:33-0400 Respiratory rate 14 /min SLICE CUTTING MACHINE OPERATOR-C Judi Mikael Work Phone: [facility] 03-23-2023 07:33-0400 SaO2% (BldA) [Mass fraction] 95 % SLICE CUTTING MACHINE OPERATOR-C Judi Mikael Work Phone: [facility] 03-23-2023 07:33-0400 Systolic blood pressure 171 mm[Hg] SLICE CUTTING MACHINE OPERATOR-C Judi Mikael Work Phone: [facility] 03-23-2023 06:20-0400 Body height 170.18 cm SLICE CUTTING MACHINE OPERATOR-C Judi Youssef Work Phone: [facility] 03-23-2023 06:20-0400 Body temperature 97.4 [degF] SLICE CUTTING MACHINE OPERATOR-C Judi Ugaldemer Work Phone: [facility] 03-23-2023 06:20-0400 Body weight 90 kg SLICE CUTTING MACHINE OPERATOR-C Judi Ugaldemer Work Phone: [facility] 02-19-2023 00:53-0400 Body temperature 96.98 [degF] Kaylinn Dokken [facility] 02-19-2023 00:53-0400 Diastolic blood pressure 99 mm[Hg] Kaylinn Dokken [facility] 02-19-2023 00:53-0400 Heart rate 75 /min Kaylinn Dokken [facility] 02-19-2023 00:53-0400 Respiratory rate 16 /min Kaylinn Dokken [facility] 02-19-2023 00:53-0400 SaO2% (BldA) [Mass fraction] 98 % Kaylinn Dokken [facility] 02-19-2023 00:53-0400 Systolic blood pressure 153 mm[Hg] Kaylinn Dokken [facility] 02-15-2023 10:33-0400 Diastolic blood pressure 89 mm[Hg] SLICE CUTTING MACHINE OPERATOR-C Judi Ugaldemer Work Phone: [facility] 02-15-2023 10:33-0400 SaO2% (BldA) [Mass fraction] 100 % SLICE CUTTING MACHINE OPERATOR-C Judi Ugaldemer Work Phone: [facility] 02-15-2023 10:33-0400 Systolic blood pressure 149 mm[Hg] SLICE CUTTING MACHINE OPERATOR-C Judi Mikael Work Phone: [facility] 02-15-2023 10:00-0400 Heart rate 83 /min SLICE CUTTING MACHINE OPERATOR-C Judi Mikael Work Phone: [facility] 02-15-2023 10:00-0400 Respiratory rate 16 /min SLICE CUTTING MACHINE OPERATOR-C Judi Mikael Work Phone: [facility] 02-15-2023 08:06-0400 Body height 170.18 cm SLICE CUTTING MACHINE OPERATOR-C Judi Mikael Work Phone: [facility] 02-15-2023 08:06-0400 Body temperature 97.6 [degF] SLICE CUTTING MACHINE OPERATOR-C Judi Mikael Work Phone: [facility] 02-15-2023 08:06-0400 Body weight 89.2 kg SLICE CUTTING MACHINE OPERATOR-C Judi Mikael Work Phone: [facility] 10-26-2022 08:03-0500 Diastolic blood pressure 87 mm[Hg] SLICE CUTTING MACHINE OPERATOR-C Judi Mikael Work Phone: [facility] 10-26-2022 08:03-0500 Heart rate 70 /min SLICE CUTTING MACHINE OPERATOR-C Judi Mikael Work Phone: [facility] 10-26-2022 08:03-0500 Respiratory rate 18 /min SLICE CUTTING MACHINE OPERATOR-C Judi Mikael Work Phone: [facility] 10-26-2022 08:03-0500 SaO2% (BldA) [Mass fraction] 98 % SLICE CUTTING MACHINE OPERATOR-C Judi Mikael Work Phone: [facility] 10-26-2022 08:03-0500 Systolic blood pressure 161 mm[Hg] SLICE CUTTING MACHINE OPERATOR-C Judi Mikael Work Phone: [facility] 10-26-2022 06:17-0500 Body height 170.18 cm SLICE CUTTING MACHINE OPERATOR-C Judi Mikael Work Phone: [facility] 10-26-2022 06:17-0500 Body temperature 97.2 [degF] SLICE CUTTING MACHINE OPERATOR-C Judi Mikael Work Phone: [facility] 10-26-2022 06:17-0500 Body weight 88.9 kg SLICE CUTTING MACHINE OPERATOR-C Judi Youssef Work Phone: [facility] 07-22-2022 14:34-0500 Diastolic blood pressure 83 mm[Hg] Ospina SALAM [facility] 07-22-2022 14:34-0500 Mean blood pressure 101 mm[Hg] Ospina SALAM [facility] 07-22-2022 14:34-0500 Systolic blood pressure 136 mm[Hg] Ospina SALAM [facility] 07-22-2022 14:30-0500 Blood Pressure Location Ospina SALAM [facility] 07-22-2022 14:30-0500 Diastolic blood pressure 89 mm[Hg] Ospina SALAM [facility] 07-22-2022 14:30-0500 Heart rate 62 /min Ospina SALAM [facility] 07-22-2022 14:30-0500 Respiratory rate 16 /min Ospina SALAM [facility] 07-22-2022 14:30-0500 SaO2% (BldA) [Mass fraction] 98 % Ospina SALAM [facility] 07-22-2022 14:30-0500 Systolic blood pressure 141 mm[Hg] Ospina SALAM [facility] 04-14-2022 14:50-0400 Blood Pressure Location Monique Marquez [facility] 04-14-2022 14:50-0400 Body temperature 97.16 [degF] Monique Reddymetz [facility] 04-14-2022 14:50-0400 Diastolic blood pressure 86 mm[Hg] Monique Jimmy [facility] 04-14-2022 14:50-0400 Heart rate 72 /min Moniquejuan luis ReddyJimmy [facility] 04-14-2022 14:50-0400 SaO2% (BldA) [Mass fraction] 97 % Monique Jimmy [facility] 04-14-2022 14:50-0400 Systolic blood pressure 131 mm[Hg] Moniquejuan luis ReddyJimmy [facility] 01-28-2022 13:36-0400 Blood Pressure Location Moniquejuan luis ReddyJimmy [facility] 01-28-2022 13:36-0400 Body temperature 97.52 [degF] Monique Reddymetz [facility] 01-28-2022 13:36-0400 Diastolic blood pressure 85 mm[Hg] Moniquejuan luis ReddyJimmy [facility] 01-28-2022 13:36-0400 Heart rate 73 /min Monique Jimmy [facility] 01-28-2022 13:36-0400 SaO2% (BldA) [Mass fraction] 96 % Monique Marquez [facility] 01-28-2022 13:36-0400 Systolic blood pressure 122 mm[Hg] Monique Marquez [facility] 01-11-2022 10:15-0400 Blood Pressure Location Ospina SALAM [facility] 01-11-2022 10:15-0400 Diastolic blood pressure 106 mm[Hg] Ospina SALAM [facility] 01-11-2022 10:15-0400 Heart rate 70 /min Ospina SALAM [facility] 01-11-2022 10:15-0400 Respiratory rate 28 /min Ospina SALAM [facility] 01-11-2022 10:15-0400 SaO2% (BldA) [Mass fraction] 99 % Ospina SALAM [facility] 01-11-2022 10:15-0400 Systolic blood pressure 137 mm[Hg] Ospina SALAM [facility] 01-11-2022 10:05-0400 Blood Pressure Location Ospina SALAM [facility] 01-11-2022 10:05-0400 Diastolic blood pressure 74 mm[Hg] Ospina SALAM [facility] 01-11-2022 10:05-0400 Heart rate 67 /min Ospina SALAM [facility] 01-11-2022 10:05-0400 Respiratory rate 14 /min Ospina SALAM [facility] 01-11-2022 10:05-0400 SaO2% (BldA) [Mass fraction] 97 % Ospina SALAM [facility] 01-11-2022 10:05-0400 Systolic blood pressure 128 mm[Hg] Ospina SALAM [facility] 01-11-2022 10:00-0400 Blood Pressure Location Ospina SALAM [facility] 01-11-2022 10:00-0400 Diastolic blood pressure 79 mm[Hg] Ospina SALAM [facility] 01-11-2022 10:00-0400 Heart rate 66 /min Ospina SALAM [facility] 01-11-2022 10:00-0400 Respiratory rate 16 /min Ospina SALAM [facility] 01-11-2022 10:00-0400 SaO2% (BldA) [Mass fraction] 98 % Ospina SALAM [facility] 01-11-2022 10:00-0400 Systolic blood pressure 134 mm[Hg] Ospina SALAM [facility] 01-11-2022 09:50-0400 Body temperature 97.52 [degF] Ospina SALAM [facility] 01-11-2022 09:45-0400 Respiratory rate 15 /min Ospina SALAM [facility] 01-11-2022 09:18-0400 Body temperature 97.34 [degF] Ospina SALAM [facility] 01-11-2022 09:18-0400 Respiratory rate 20 /min Ospina SALAM [facility] Encounters Encounter Date Encounter Type Care Provider Facility Start: 11-26-2024 End: 11-26-2024 Office outpatient visit 25 minutes Nikki HAQ Work Phone: [facility] Comment on above: Seizure (CMS/HCC) (P rimary Dx); History of obstructive sleep apnea; Migraine without aura and without status migrainosus, not intractable (CMS/HCC) Start: 11-26-2024 End: 11-26-2024 ambulatory NIKKI AYOUB Not Available Start: 10-19-2024 End: 10-20-2024 ambulatory Eliezer Lorenzo Facility:[facility] Start: 10-19-2024 Emergency department patient visit [facility] Facility:[facility] Start: 10-19-2024 End: 10-20-2024 Observation Eliezer Lorenzo [facility] Start: 09-17-2024 End: 09-17-2024 ambulatory [facility] Start: 08-28-2024 End: 08-30-2024 Evaluation and management of inpatient Pete Otto MD Work Phone: [facility] Comment on above: Ileus (HCC) (Primary Dx); Generalized abdominal pain; Hypokalemia Start: 08-17-2024 End: 08-17-2024 ambulatory AMIRAH LUCERO [facility] Start: 08-17-2024 End: 08-17-2024 Subsequent hospital visit by physician Justin Lucero MD Work Phone: [facility] Comment on above: Other dysphagia (Apple alfonzo Dx) Start: 07-13-2024 End: 07-13-2024 Bamboo flowsheet Kulwant Hodge MD Work Phone: [facility] Start: 07-13-2024 End: 07-13-2024 Bamboo flowsheet Kulwant Hodge MD Work Phone: [facility] Start: 07-13-2024 End: 07-13-2024 Office outpatient visit 25 minutes Kulwant Hodge MD Work Phone: [facility] Comment on above: Hypoglycemia Start: 07-13-2024 End: 07-13-2024 ambulatory KULWANT HODGE Not Available Start: 06-20-2024 End: 06-20-2024 Bamboo flowsheet Kulwant Hodge MD Work Phone: [facility] Start: 06-20-2024 End: 06-20-2024 Bamboo flowsheet Kulwant Hodge MD Work Phone: [facility] Start: 06-20-2024 End: 06-20-2024 ambulatory KULWANT HODGE Not Available Start: 06-20-2024 End: 06-20-2024 Office outpatient new 45 minutes Kulwant Hodge MD Work Phone: [facility] Comment on above: Hypoglycemia (Primar y Dx); Encounter for dietary consultation Start: 06-19-2024 End: 06-19-2024 Patient encounter procedure SLICE CUTTING MACHINE OPERATOR-C Judi Youssef [facility] Phone: [facility] Work Phone: Start: 06-19-2024 End: 06-19-2024 ambulatory Judi Youssef Facility:[facility] Start: 06-07-2024 End: 06-07-2024 ambulatory Yolanda Lou Facility:[facility] Start: 06-07-2024 End: 06-07-2024 Patient encounter procedure Yolanda X Orzech [facility] Start: 05-14-2024 End: 05-14-2024 ambulatory [facility] Start: 05-11-2024 Non-patient / Non-visit SLICE CUTTING MACHINE OPERATOR-C Cesia Youssef Work Phone: [facility] Work Phone: Start: 05-11-2024 End: 05-11-2024 Admission to same day surgery center SLICE CUTTING MACHINE OPERATOR-C Judi Youssef Work Phone: [facility] Work Phone: Start: 05-11-2024 End: 05-11-2024 ambulatory SLICE CUTTING MACHINE OPERATOR-C Judi Youssef Work Phone: [facility] Work Phone: Start: 04-26-2024 End: 04-26-2024 ambulatory [facility] Work Phone: Start: 04-26-2024 End: 04-26-2024 Patient encounter procedure [facility] Work Phone: Start: 04-13-2024 Non-patient / Non-visit SLICE CUTTING MACHINE OPERATOR-C Cesia Youssef Work Phone: [facility] Work Phone: Start: 03-19-2024 End: 03-19-2024 ambulatory [facility] Start: 02-16-2024 End: 02-16-2024 ambulatory Yolanda X Orzech Facility:[facility] Start: 02-16-2024 End: 02-16-2024 Lab Drop off Yolanda X Orzech [facility] Start: 02-16-2024 End: 02-16-2024 ambulatory Yolanda X Orzech Facility: [place] Start: 02-16-2024 End: 02-16-2024 Patient encounter procedure Yolanda X Orzech [facility] [place] Start: 02-15-2024 End: 02-15-2024 ambulatory [facility] Start: 12-01-2023 ambulatory [facility] Start: 08-25-2023 End: 08-25-2023 ambulatory [facility] Facility:[facility] Start: 07-29-2023 Orders Only Evelyn Black RN Gen eral Surgery Comment on above: Gastroparesis (Prima ry Dx) Start: 07-22-2023 End: 07-22-2023 ambulatory MARQUES BRADLEY Facility:[facility] Start: 07-22-2023 Telephone encounter Evelyn Black RN General Surgery Start: 07-22-2023 End: 07-22-2023 Nutrition therapy Melissa Montalvo RD Work Phone: General Surgery Comment on above: Gastroparesis (Prima ry Dx); Malnutrition of moderate degree (HCC); Gastro-esophageal reflux disease without esophagitis; Overweight (BMI 25.0-29.9); Dietary counseling and surveillance Start: 07-22-2023 End: 07-22-2023 Telemedicine consultation with patient Melissa Wingcarrie ALBRECHT Work Phone: [facility] Start: 07-14-2023 End: 07-14-2023 ambulatory MARQUES BRADLEY Facility:[facility] Start: 07-14-2023 End: 07-14-2023 Subsequent hospital visit by physician Marques Bradley MD Work Phone: Gastroenterology Comment on above: Dysphagia, unspecifi ed type [R13.10] Start: 07-13-2023 End: 07-13-2023 ambulatory MARQUES BRADLEY Facility:[facility] Start: 05-27-2023 Telephone encounter Evelyn Black RN General Surgery Comment on above: Results Start: 05-26-2023 End: 05-26-2023 ambulatory MARQUES BRADLEY Facility:[facility] Start: 05-25-2023 End: 05-25-2023 ambulatory JOEL PANCHAL [facility] Facility:[facility] Start: 05-25-2023 End: 05-25-2023 Nursing evaluation of patient and report Nurse [facility] 2 Work Phone: Gastroenterology Comment on above: Nausea Start: 05-16-2023 Orders Only Evelyn Black RN [facility] Surgery Comment on above: Nausea (Primary Dx); Dysphagia, unspecified type Start: 05-06-2023 End: 05-07-2023 ambulatory MARQUES BRADLEY Facility:[facility] Start: 05-02-2023 Telephone encounter Evelyn Black RN General Surgery Start: 04-26-2023 Telephone encounter Evelyn Black RN General Surgery Start: 04-21-2023 End: 04-21-2023 ambulatory Renny Omalley Other [email or web address] Other Start: 04-21-2023 Office outpatient vi sit 15 minutes Renny Omalley [facility] Start: 04-18-2023 Telephone encounter Evelyn Black RN General Surgery 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 Start: 04-07-2023 Telephone encounter Guillermo Maria C Juan DO Work Phone: Gastroenterology Comment on above: Appointment Start: 04-05-2023 End: 04-05-2023 ambulatory Imad Asaad Other [email or web address] Other Start: 04-05-2023 Telephone encounter Imad Asaad [facility] Start: 03-29-2023 ambulatory Facility:U Start: 03-26-2023 ambulatory Facility:[id number] Start: 03-26-2023 ambulatory Facility:[id number] Start: 03-24-2023 End: 03-24-2023 ambulatory Imad Asaad Other [email or web address] Other Start: 03-24-2023 Telephone encounter Imad Asaad [facility] Start: 03-23-2023 End: 03-23-2023 Emergency department patient visit DONI Youssef Work Phone: [facility] Work Phone: Start: 03-22-2023 End: 03-22-2023 ambulatory Imad Asaad Other [email or web address] Other Start: 03-22-2023 Telephone encounter Imad Asaad [facility] Start: 03-09-2023 End: 03-09-2023 ambulatory Imad Asaad Other [email or web address] Other Start: 07-05-2023 Telephone encounter Imad Asaad [facility] Start: 03-01-2023 End: 03-01-2023 ambulatory Imad Asaad Other [email or web address] Other Start: 03-01-2023 Telephone encounter Imad Asaad [facility] Start: 02-19-2023 End: 02-19-2023 Emergency department patient visit Zabrina Ibrahim [facility] Start: 02-15-2023 End: 02-15-2023 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 OPERATOR-C Judi Youssef Work Phone: [facility] [facility] Work Phone: Start: 11-30-2022 End: 12-01-2022 ambulatory JUDI YOUSSEF Facility:H1 Start: 11-27-2022 End: 11-28-2022 ambulatory JUDI YOUSSEF Facility:H1 Start: 11-26-2022 End: 11-26-2022 ambulatory Imad Asaad Other [email or web address] Other Start: 11-26-2022 Telephone encounter Imad Asaad [facility] Start: 11-04-2022 End: 11-04-2022 Admission to same day surgery center SLICE CUTTING MACHINE OPERATOR-C Judi Mikael Work Phone: [facility] [place] Work Phone: Start: 11-04-2022 End: 11-04-2022 ambulatory SLICE CUTTING MACHINE OPERATOR-C Judi Joan Youssef Work Phone: [facility] Work Phone: Start: 11-01-2022 End: 11-02-2022 ambulatory JUDI YOUSSEF Facility:H1 Start: 10-26-2022 End: 10-26-2022 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 OPERATOR-C Judi Youssef Work Phone: [facility] Work Phone: Start: 09-21-2022 End: 09-21-2022 ambulatory JUDI YOUSSEF Facility:H1 Start: 09-18-2022 End: 09-18-2022 ambulatory BALTAZAR GEORGES . Facility:H1 Start: 09-14-2022 End: 09-14-2022 ambulatory EUN WILSON . Facility:H1 Start: 09-07-2022 End: 09-07-2022 ambulatory Imad Asaad Other [facility] [employer] Other Start: 09-07-2022 Telephone encounter Imad Asaad [facility] [employer] Start: 09-06-2022 End: 09-07-2022 ambulatory JUDI YOUSSEF Facility:H1 Start: 08-20-2022 End: 08-20-2022 ambulatory BALTAZAR GEORGES . Facility:H1 Start: 08-17-2022 End: 08-18-2022 ambulatory JUDI YOUSSEF Facility:H1 Start: 08-11-2022 End: 08-12-2022 ambulatory JUDI YOUSSEF Facility:H1 Start: 08-08-2022 End: 08-08-2022 ambulatory KATHRIN VANCE Facility:H1 Start: 07-22-2022 End: 07-22-2022 Patient encounter procedure [facility] SALAM [facility] Start: 07-21-2022 End: 07-21-[address] NORA WINN Facility:H1 Start: 07-15-2022 ambulatory JUDI YOUSSEF Facility: H1 Start: 07-12-2022 Encounter for genera l adult medical examination without abnormal findings JUDI YOUSSEF [facility] Start: 07-08-2022 End: 07-09-2022 ambulatory [...] End: 04-29-2022 Lab Drop off Anai FORBES [facility] Start: 04-14-2022 End: 04-14-2022 Patient encounter procedure Monique Reddymetz [facility] Start: 03-27-2022 End: 03-30-2022 Evaluation and management of inpatient SHAIKH Juan Luis DAVIS Facility:H1 Start: 03-01-2022 End: 03-01-2022 Patient encounter procedure Moniquejuan luis Reddymetz [facility] Start: 02-02-2022 End: 02-02-2022 ambulatory BALTAZAR GEORGES . Facility:H1 Start: 01-28-2022 End: 01-28-2022 Patient encounter procedure Moniquejuan luis Reddymetz [facility] Start: 01-11-2022 End: 01-11-2022 Patient encounter procedure Anai FORBES [facility] Start: 12-24-2021 End: 12-24-2021 Patient encounter procedure JHOANA MELGOZA [facility] [place] Start: 08-13-2019 End: 08-16-2019 Evaluation and management of inpatient LEONA MORTENSEN Facility:[facility] Procedures Date Procedure Procedure Detail Performing Clinician [...] Hodge MD Work Phone: Start: 05-11-2024 Esophagogastroduodenoscopy SLICE CUTTING MACHINE OPERATOR-C Judi morales Work Phone: Start: 07-14-2023 Esophagoscp rig transoral hypopharynx crv esoph Evelyn Black RN Start: 05-25-2023 Esophageal motility study w/interp&rpt Evelyn Black RN Start: 03-23-2023 Computed tomography of abdomen and pelvis with contrast SLICE CUTTING MACHINE OPERATOR-C Judijose manuel Youssef Work Phone: Start: 02-15-2023 Computed tomography of abdomen and pelvis with contrast SLICE CUTTING MACHINE OPERATOR-C Judijose manuel Ugaldemer Work Phone: Start: 11-04-2022 CT of small intestine SLICE CUTTING MACHINE OPERATOR-C Judijose manuel Ugaldemer Work Phone: Start: 10-26-2022 Computed tomography of abdomen and pelvis with contrast SLICE CUTTING MACHINE OPERATOR-C Judi Youssef Work Phone: Start: 01-11-2022 Esophagogastroduodenoscopy Anai FORBES Start: 05-13-2021 Esophagogastroduodenoscopy JHOANA PERR Y Start: 09-30-2020 Esophagogastroduodenoscopy JHOANA PERR Y Start: 03-13-2020 Colonoscopy Kulwant Hodge MD Work Phone: Start: 03-13-2020 Colonoscopy JHOANA ABAD Start: 01-30-2020 Esophagogastroduodenoscopy JHOANA PERR Y Start: 08-15-2019 FLUOROSCOPY OF UPPER GI AND SMALL BOWEL USING OTHER CONTRAST ORESTES CONDON Start: 05-17-2019 Colonoscopy JHOANA MELGOZA Start: 05-17-2019 Esophagogastroduodenoscopy JHOANA PERR Y Start: 03-02-2019 Hernia surgical mesh (physical object) JHOANA MELGOZA Comment on above: Dr. Mortensen in [place]. Hernia repair JHOANA MELGOZA Hysterectomy JHOANA MELGOZA Plan of Treatment Date Care Activity Detail Author Start: 03-13-2030 Screening for malignant neoplasm of colon [facility] Start: 01-07-2025 End: 01-07-2025 Patient encounter procedure 01/07/2025 2:20 PM EDT Office Visit [facility] [address] [place] [address] Nikki Ayoub PA [address] [place] [address] [facility] Start: 11-29-2024 End: 11-29-2024 Patient encounter procedure 11/29/2024 11:00 AM EDT Office Visit [facility] [address] [place] [id number] Kulwant Hodge MD [address] [place] [address] [facility] Start: 11-26-2024 End: 11-26-2025 Polysomnography [facility] Routine History of obstructive sleep apnea Migraine without aura and without status migrainosus, not intractable ([facility]/HCC) Expected: 11/26/2024 (Approximate), Expires: 11/26/2025 [facility] Work Phone: Comment on above: Expected: 11/26/2024 (Approximate), Expi res: 11/26/2025 Start: 08-31-2024 End: 08-30-2025 Basic metabolic 2000 panel - Serum or Plasma Basic Metabolic Panel Lab Routine Ileus (HCC) Generalized abdominal pain Hypokalemia Expected: 08/31/2024, Expires: 08/30/2025 [facility] Comment on above: Expected: 08/31/2024, Expires: Start: 08-31-2024 End: 08-30-2025 Magnesium [Mass/volume] in Serum or Plasma Magnesium Lab Routine Ileus (HCC) Generalized abdominal pain Hypokalemia Expected: 08/31/2024, Expires: 08/30/2025 [facility] Comment on above: Expected: 08/31/2024, Expires: Start: 08-17-2024 End: 08-17-2025 Radiologic exam swallow function contrast study FL MODIFIED BARIUM SWALLOW W VIDEO Imaging Routine Other dysphagia Expected: 08/17/2024, Expires: 08/17/2025 [facility] Comment on above: Expected: 08/17/2024, Expires: Start: 08-17-2024 End: 08-17-2024 Egd transoral biopsy single/multiple ESOPHAGOGASTRODUODENOSCOPY BIOPSY Other dysphagia 08/17/2024 12:58 PM [facility] Start: 07-13-2024 End: 07-13-2024 Patient encounter procedure [facility] Comment on above: Arrived Start: 06-22-2024 Shingles vaccine (2 of 2) Shingles vaccine (2 of 2) [facility] Start: 06-20-2024 End: 06-20-2025 Basic metabolic 1998 panel - Serum or Plasma Basic metabolic panel Lab Routine Hypoglycemia Expected: 06/20/2024 (Approximate), Expires: 06/20/2025 [facility] Comment on above: Expected: 06/20/2024 (Approximate), Expi res: 06/20/2025 Start: 06-20-2024 End: 06-20-2025 C peptide [Mass/volume] in Serum or Plasma --fasting C PEPTIDE FASTING Lab Routine Hypoglycemia Expected: 06/20/2024 (Approximate), Expires: 06/20/2025 [facility] Work Phone: Comment on above: Expected: 06/20/2024 (Approximate), Expi res: 06/20/2025 Start: 06-20-2024 End: 06-20-2025 Hepatic function 2000 panel - Serum or Plasma Hepatic function panel Lab Routine Hypoglycemia Expected: 06/20/2024 (Approximate), Expires: 06/20/2025 [facility] Comment on above: Expected: 06/20/2024 (Approximate), Expi res: 06/20/2025 Start: 06-20-2024 End: 06-20-2025 Insulin, fasting Insulin, fasting Lab Routine Hypoglycemia Expected: 06/20/2024 (Approximate), Expires: 06/20/2025 [facility] Comment on above: Expected: 06/20/2024 (Approximate), Expi res: 06/20/2025 Start: 06-20-2024 End: 06-20-2025 Insulin-like growth factor 2 Insulin-like growth factor 2 Lab Routine Hypoglycemia Expected: 06/20/2024 (Approximate), Expires: 06/20/2025 [facility] Comment on above: Expected: 06/20/2024 (Approximate), Expi res: 06/20/2025 Start: 06-20-2024 End: 06-20-2025 Proinsulin Proinsulin Lab Routine Hypoglycemia Expected: 06/20/2024 (Approximate), Expires: 06/20/2025 [facility] Comment on above: Expected: 06/20/2024 (Approximate), Expi res: 06/20/2025 Start: 05-11-2024 [facility] Start: 05-06-2024 COVID-19 Vaccine ( season) COVID-19 Vaccine ( season) [facility] Start: 05-06-2024 Influenza vaccination Influenza Vaccine (#1) [facility] Start: 04-05-2024 Influenza vaccination Flu vaccine (#1) [facility] Start: 05-06-2023 Covid-19 Vaccine ( season) Covid-19 Vaccine ( season) [facility] Start: 05-06-2023 Influenza vaccination [facility] Start: 09-05-2022 DEPRESSION ASSESSMENT DEPRESSION ASSESSMENT [facility] Start: 01-01-2022 COVID-19 VACCINE (4 - Pfizer series) COVID-19 VACCINE (4 - Pfizer series) [facility] Start: 2020 SHINGRIX VACCINE (1 of 2) SHINGRIX VACCINE (1 of 2) [facility] Start: 2015 COLOGUARD (FIT-DNA) COLOGUARD (FIT-DNA) [facility] Start: 2015 Colonoscopy COLONOSCOPY [facility] Start: 2015 COLORECTAL CANCER SCREENING COLORECTAL CANCER SCREENING [facility] Start: [address] COLONOGRAPHY [facility] Start: 2015 DIABETES SCREEN DIABETES SCREEN [facility] Start: 2015 Diabetes Screening Diabetes Screening [facility] Start: 2015 FECAL OCCULT BLOOD FECAL OCCULT BLOOD [facility] Start: 2015 Lipid 1996 panel - Serum or Plasma Lipid Screening [facility] Start: 2015 LIPID SCREEN LIPID SCREEN [facility] Start: 2015 Screening for malignant neoplasm of colon [facility] [employer] [facility] Start: 2015 SIGMOIDOSCOPY SIGMOIDOSCOPY [facility] Start: 2010 Lipid panel Lipids [facility] [employer] Start: 2010 Mammography [facility] Start: 2010 Screening for malignant neoplasm of breast [facility] Start: 2005 Diabetes screen Diabetes screen [facility] Start: 2000 HPV TESTING HPV TESTING [facility] Start: 2000 Screening for malignant neoplasm of cervix [facility] Start: 1991 PAP TESTING PAP TESTING [facility] Start: 1991 Screening for malignant neoplasm of cervix Pap Smear [facility] Start: 1989 DTaP/Tdap/Td vaccine (1 - Tdap) DTaP/Tdap/Td vaccine (1 - Tdap) [facility] Start: 1989 Hepatitis B vaccine (1 of 3 - 19+ 3-dose series) Hepatitis B vaccine (1 of 3 - 19+ 3-dose series) [facility] Start: 1989 Urine microalbumin profile [facility] Start: 1988 HEPATITIS C SCREENING HEPATITIS C SCREENING [facility] Start: 1988 Hepatitis C screening Hepatitis C screen [facility] [employer] Start: 1988 HIV SCREENING HIV SCREENING [facility] Start: 1985 HIV screening HIV screen [facility] [employer] Start: 1982 Depression Monitoring Depression Monitoring [facility] [employer] Start: 1982 Depression Screen Depression Screen [facility] Start: 1970 COVID-19 VACCINE (#1) COVID-19 VACCINE (#1) [facility] Start: 1970 HEPATITIS B (1 of 3 - 3-dose series) HEPATITIS B (1 of 3 - 3-dose series) [facility] Start: 1970 Hepatitis B Vaccine (1 of 3 - 3-dose series) Hepatitis B Vaccine (1 of 3 - 3-dose series) [facility] Start: 1970 Screening for malignant neoplasm of colon [facility] End: 09-18-2024 Basic Metabolic Panel w/ Reflex to MG Basic Metabolic Panel w/ Reflex to MG Lab Routine Daily for 3 Weeks starting 08/29/2024 until 09/18/2024, 2 completed [facility] Comment on above: Daily for 3 Weeks starting 08/29/2024 un til 09/18/2024, 2 completed End: 09-18-2024 CBC W Auto Differential panel - Blood CBC with Auto Differential Lab Routine Daily for 3 Weeks starting 08/29/2024 until 09/18/2024, 2 completed [facility]EE[facility] Comment on above: Daily for 3 Weeks starting 08/29/2024 un til 09/18/2024, 2 completed End: 07-29-2024 EGD - THERAPEUTIC, EUS, OR TUBE INTERVENTIONS EGD - THERAPEUTIC, EUS, OR TUBE INTERVENTIONS Endoscopy Routine Gastroparesis 1 Occurrences starting 07/29/2023 until 07/29/2024 [facility] Work Phone: Comment on above: 1 Occurrences starting 07/29/2023 until 07/29/2024 End: 05-16-2024 Esophageal motility study w/interp&rpt MANOMETRY ESOPHAGEAL Endoscopy Routine Nausea 1 Occurrences starting 05/16/2023 until 05/16/2024 [facility] Work Phone: Comment on above: 1 Occurrences starting 05/16/2023 until 05/16/2024 Esophageal motility study w/interp&rpt MANOMETRY ESOPHAGEAL Endoscopy Routine Nausea 05/25/2023 [facility] Work Phone: End: 06-14-2024 Gastric emptying imaging study NM GASTRIC EMPTYING SOLID Radiology Routine Nausea 1 Occurrences starting 05/16/2023 until 06/14/2024 [facility] Work Phone: Comment on above: 1 Occurrences starting 05/16/2023 until 06/14/2024 Glucose [Mass/volume ] in Serum or Plasma POCT glucose Point of Care Testing Routine 4X Daily until discontinued starting 08/28/2024 [facility] [employer] Comment on above: 4X Daily until discontinued starting Oxygen therapy [Minimum Data Set] Initiate Oxygen Therapy Protocol Respiratory Care Routine As Needed until discontinued starting 08/17/2024 [facility] Work Phone: Comment on above: As Needed until discontinued starting Oxygen therapy [Minimum Data Set] Initiate Oxygen Therapy Protocol Respiratory Care Routine As Needed until discontinued starting 08/28/2024 [facility] Work Phone: Comment on above: As Needed until discontinued starting Patient Education [facility] Work Phone: Patient referral [facility] Work Phone: SURGICAL PATHOLOGY [facility] Work Phone: Comment on above: Release Upon Ordering for 1 Occurrences starting 07/14/2023, 1 completed [facility] Immunizations Immunization Date Immunization Notes Care Provider [facility] 04-27-2024 zoster vaccine recombinant Kulwant Hodge MD Work Phone: [facility] 06-15-2022 SARS-CoV-2 (COVID-19 ) [id number] [facility] 06-09-2022 influenza, seasonal, injectable Kulwant Hodge MD Work Phone: [facility] 06-09-2022 influenza virus vaccine, unspecified formulation Nurse 2 Work Phone: [facility] 03-18-2022 SARS-CoV-2 mRNA (lgkafzbqyan-qhxx-ndh jett) vaccine [facility] 11-06-2021 SARS-CoV-2 (COVID-19 ) mRNA BNT-162b2 vax Anai FORBES [facility] 05-06-2021 influenza virus vaccine, unspecified formulation JHOANA MELGOZA [facility] [place] 02-26-2021 SARS-CoV-2 (COVID-19 ) mRNA BNT-162b2 vax JHOANA MELGOZA [facility] [place] 02-05-2021 SARS-CoV-2 (COVID-19 ) mRNA BNT-162b2 [employer] [facility] [facility] Comment on above: Result Comment: 2021: [id number] NEGATED: Highlighted row has not occurred!04-14-2022 influenza virus vaccine, unspecified formulation Monique Marquez [facility] Payers Date Payer Category Payer Blue [employer] Blue Shield BCBS [id number] 2022 Unknown RINA CASTRO PPO [id number] 2022-Present [phone] [address] [place] [address] O [id number] 2018 Private Health Insurance [id number] 2018 Private Health Insurance [facility] CHOICE PLUS [id number] 2018-Present [phone] [address] [place] [address] HMO [id number] 1970 Unknown [id number] 2.16.840.1.474717.3.579.2 .647 1970 Unknown [id number] 2.16.840.1.693064.3.579.2 .593 1970 Unknown [id number] 2.16.840.1.580849.3.579.2 .593 1970 Unknown [id number] 2.16.840.1.012640.3.579.2 .593 1970 Unknown [id number] 2.16.840.1.932761.3.579.2 .593 1970 Unknown [id number] 2.16.840.1.465481.3.579.2 .593 1970 Unknown [id number] 2.16.840.1.817228.3.579.2 .593 1970 Unknown [id number] 2.16.840.1.564529.3.579.2 .593 1970 Unknown [id number] 2.16.840.1.719130.3.579.2 .593 1970 Unknown [id number] 2.16.840.1.289973.3.579.2 .593 1970 Unknown [id number] 2.16.840.1.127682.3.579.2 .593 1970 Unknown [id number] 2.16.840.1.996332.3.579.2 .593 1970 Unknown [id number] 2.16.840.1.763803.3.579.2 .593 1970 Unknown [id number] 2.16.840.1.259005.3.579.2 .593 1970 Unknown [id number] 2.16.840.1.450756.3.579.2 .593 1970 Unknown [id number] 2.16.840.1.174406.3.579.2 .593 1970 Unknown [id number] 2.16.840.1.959934.3.579.2 .593 1970 Unknown [id number] 2.16.840.1.618663.3.579.2 .593 1970 Unknown [id number] 2.16.840.1.973339.3.579.2 .593 1970 Unknown [id number] 2.16.840.1.263220.3.579.2 .593 1970 Unknown [id number] 2.16.840.1.168947.3.579.2 .593 1970 Unknown [id number] 2.16.840.1.943628.3.579.2 .356 1970 Unknown [id number] 2.16.840.1.465260.3.579.2 .356 1970 Unknown [id number] 2.16.840.1.216963.3.579.2 .1286 1970 Unknown [id number] 2.16.840.1.538028.3.579.2 .1286 1970 Unknown [id number] 2.16.840.1.191323.3.579.2 .1286 1970 Unknown [id number] 2.16.840.1.806716.3.579.2 .1286 1970 Unknown [id number] 2.16.840.1.631203.3.579.2 .176 1970 Unknown [id number] 2.16.840.1.543011.3.579.2 .175 1970 Unknown [id number] 2.16.840.1.390754.3.579.2 .727 1970 Unknown [id number] 2.16.840.1.150996.3.579.2 .727 1970 Unknown [id number] 2.16.840.1.856007.3.579.2 .727 1970 Unknown [id number] 2.16.840.1.001605.3.579.2 .727 1970 Unknown [id number] 2.16.840.1.659822.3.579.2 .727 1970 Unknown [id number] 2.16.840.1.699820.3.579.2 .727 1970 Unknown [id number] 2.16.840.1.233547.3.579.2 .727 1970 Unknown [id number] 2.16.840.1.995488.3.579.2 .1259 1970 Unknown [id number] 2.16.840.1.783276.3.579.2 .1259 1970 Unknown [id number] 2.16.840.1.153539.3.579.2 .1259 1970 Unknown [id number] 2.16.840.1.261649.3.579.2 .727 1970 Unknown [id number] 2.16.840.1.350987.3.579.2 .727 1959 Medicaid [id number] 1959 Self-pay [id number] 1959 Unknown [id number] 1959 Unknown [id number] Medicare Medicare [id number] Medicare Medicare [id number] Unknown [id number] 2.16.840.1.230379.3.579.2 .531 Unknown [id number] 2.16.840.1.458211.3.579.2 .531 Worker's Compensation [employer] [facility] [id number] Social History Date Type Detail Facility Start: 12-03-2021 End: 07-13-2024 Tobacco smoking status Ex-smoker (finding) [facility] Start: 08-12-2020 End: 11-26-2024 Sex Assigned At Female [facility] Tobacco smoking status Never [facility] Start: 1970 Sex Assigned At Female [facility] End: 09-05-2011 History of tobacco use Current smoker [facility] Work Phone: End: 09-05-2011 History of tobacco use Cigarette Smoker [facility] Work Phone: Start: 04-28-2018 End: 07-13-2024 Tobacco use and exposure Smokeless tobacco non-user [facility] Work Phone: Start: 04-28-2018 End: 08-28-2024 Alcohol intake Current drinker of alcohol (finding) [facility] Start: 08-12-2020 End: 11-26-2024 History of Social function [facility] Start: 04-28-2018 End: 05-06-2023 Tobacco Comment still smokes [facility] Start: 04-28-2018 Alcohol Comment social [facility] Start: 1970 Sex Assigned At Not on file [facility] Start: 07-14-2023 Alcohol intake Ex-drinker (finding) [facility] Start: 06-08-2024 [facility] Start: 07-13-2024 End: 11-26-2024 Alcoholic beverage intake Lifetime non-drinker (finding) [facility] Start: 08-15-2024 Alcohol Comment [employer] Has the [employer], or [employer] threatened to shut off services in your home in past 12Mo No SWEEPiO How often to you hav e a drink containing alcohol? Never SWEEPiO (I/We) worried yelena (my/our) food would run out before (I/we) got money to buy more. Never true SWEEPiO Goals Date Patient Goal Desired Activity /State Functional Status Date Assessment Result Facility 10-19-2024 Functional Status N/A [facility] 10-19-2024 Functional Status [facility] 02-16-2024 Functional Status N/A [facility] 02-19-2023 Functional Status N/A [facility] 07-22-2022 Functional Status N/A [facility] 04-14-2022 Functional Status N/A [facility] Clinical Notes 12-02-2021 to 10-21-2024 Note Date & Type Note Facility 10-21-2024 Note Discharge Summary Admission and Discharge Information Admitting Physician - Eliezer Lorenzo DO Consulting Physician - Rush Padilla MD Admitting Diagnoses: Discharge Diagnoses 1. Stroke-like symptoms, 10/19/2024 2. Migraine headache, 10/19/2024 3. Anemia, 10/19/2024 4. B12 deficiency, 10/20/2024 5. Vitamin D deficiency, 10/20/2024 6. Hypokalemia, 10/19/2024 7. HTN (hypertension), 10/19/2024 8. HLD (hyperlipidemia), 10/19/2024 9. Gastroparesis, 10/19/2024 10. Acid reflux, 10/19/2024 11. Seizure, 10/19/2024 12. Osteoarthritis, 10/19/2024 13. Obesity due to excess calories, 10/19/2024 14. On deep vein thrombosis (DVT) prophylaxis, 10/19/2024 Please refer to my progress note for in-depth information regarding each individual diagnosis Procedure History Esophagogastroduodenoscopy (01/11/2022), Esophagogastroduodenoscopy (05/13/2021), Esophagogastroduodenoscopy (09/30/2020), Colonoscopy (03/13/2020), Esophagogastroduodenoscopy (01/30/2020), Colonoscopy (05/17/2019), Esophagogastroduodenoscopy (05/17/2019), Hernia surgical mesh (03/02/2019), Cholecystectomy, Hernia repair, Hysterectomy. Hospital Course 54-year-old female with PMH of: HTN, HLD, gastric bezoar, gastroparesis, GERD, migraines, seizures, OA, obesity. -Pt. presented to the ED via EMS from work w/ concerns for stroke like symptoms. 1. Stroke-like symptoms (R29.90: Unspecified symptoms and signs involving the nervous system) + PETE, + staring off, + b/l LE weakness, -Likely 2/2 complicated migraine +/- seizure activity per EEG review -CT head: No acute process -Asa 81mg daily -MRI head: No acute process -MRA head/neck: Probable neg MRA head -finding reviewed by Dr. Padilla -Lipid panel: unremarkable -A1c: < 6.0 -Etoh, UDS - neg -PT/OT - no home going needs -ST - pt. declines, states no difficulty eating/swallowing, passed dysphagia Consult neuro: -MRA w/diminutive L vert. artery noted, initiated asa 81mg daily -EEG: Per Dr. 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 -Pt. was educated on keppra use, seizure precautions and no driving, she verbalized understanding. 2. Migraine headache (G43.909: Migraine, unspecified, not intractable, without status migrainosus) + photophobia, -Migraine cocktail given in ED - resolved 3. Anemia (D64.9: Anemia, unspecified) 2/2 B12 def. -Baseline hgb. level - no recent labs -No acute bleeding noted, hemodynamically stable -Hemoccult stool - no sample collected -Hepatic panel - wnl -Anemia panel - IM B12 x 1 then po supplement -Trend labs -Outpt. f/u w/ GI for possible scopes - defer to PCP 4. Hypokalemia (E87.6: Hypokalemia) Replete K/Mag prn -Trend labs 5. HTN (hypertension) (I10: Essential (primary) hypertension) -Lisinopril, metoprolol, 6. HLD (hyperlipidemia) (E78.5: Hyperlipidemia, unspecified) -Diet controlled 7. Gastroparesis (K31.84: Gastroparesis) 8. Acid reflux (K21.9: Gastro-esophageal reflux disease without esophagitis) -OTC PPI prn use 9. Seizure (R56.9: Unspecified convulsions) -Pt. states 1st seizure at age 15 then several in her late 20's but no seizure activity in the last 10yrs and not on med tx. -See above -Seizure precautions 10. Osteoarthritis (M19.90: Unspecified osteoarthritis, unspecified site) -Tylenol 11. Obesity due to excess calories (E66.09: Other obesity due to excess calories) BMI 31 -Educated on need for lifestyle modifications with goal of weight loss as obesity causes a pro- inflamm state resulting in a negative impact on co-morbid conditions. -Patient states that all admitting symptoms have significantly improved and/or resolved. Patient is eating and drinking without complaints, denies being SOB, chest pain, pressure, palpitations or difficulty with voiding. Patient is eager to be discharged to home. --Other chronic medical conditions as outlined in note. Refer to d/c plan below: -Case reviewed and discussed with Dr. Lorenzo who is in agreement with current d/c plan. Case will be reviewed and discussed with PCP or electrician telephone MD once the hospital printing press machine operator is able to reach him/her. I spent a lengthy amount of time with the patient and/or family with shared decision making regarding discharge, education provided (teach back method) reviewing discharge instructions, reviewed discharge medications rec for accuracy, medication use. Patient to follow-up with PCP and specialty providers as scheduled on discharge. Patient being discharged in medically/hemodynamically stable cond. with instructions to return to the hospital if symptoms worsen or recur. This report was transcribed using voice recognition software. Every effort was made to ensure accuracy, however, inadvertently computerized sanitary inspector mistakes may be present. Services Consulted Consult to Neurology - Ordered -- 10/19 (more content not included)... [facility] Comment on above: Result Comment: Elec tronically Signed By: Guerline WALLS\.br\Date and Time Signed: 10/20/24 16:06 EST\.br\Electronically Co-Signed By: Eliezer Lorenzo DO\.br\Date and Time Co-Signed: 10/21/24 15:34 EST 10-20-2024 Hospital Discharge instructions Patient Education 10/20/2024 15:59:25 Seizure, Adult, Hlfr-rj-Avyz Seizure, Adult A seizure is a sudden burst of abnormal electrical and chemical activity in the brain. Seizures usually last from 30 seconds to 2 minutes. What are the causes? Common causes of this condition include: Fever or infection. Problems that affect the brain. These may include: ?A brain or head injury. ?Bleeding in the brain. ?A brain tumor. Low levels of blood sugar or salt. Kidney problems or liver problems. Conditions that are passed from parent to child (are inherited). Problems with a substance, such as: ?Having a reaction to a drug or a medicine. ?Stopping the use of a substance all of a sudden (withdrawal). A stroke. Disorders that affect how you develop. Sometimes, the cause may not be known. What increases the risk? Having someone in your family who has epilepsy. In this condition, seizures happen again and again over time. They have no clear cause. Having had a tonic clonic seizure before. This type of seizure causes you to: ?Tighten the muscles of the whole body. ?Lose consciousness. Having had a head injury or strokes before. Having had a lack of oxygen at . What are the signs or symptoms? There are many types of seizures. The symptoms vary depending on the type of seizure you have. Symptoms during a seizure Shaking that you cannot control (convulsions) with fast, jerky movements of muscles. Stiffness of the body. Breathing problems. Feeling mixed up (confused). Staring or not responding to sound or touch. Head nodding. Eyes that blink, flutter, or move fast. Drooling, grunting, or making clicking sounds with your mouth Losing control of when you pee or poop. Symptoms before a seizure Feeling afraid, nervous, or worried. Feeling like you may vomit. Feeling like: ?You are moving when you are not. ?Things around you are moving when they are not. Feeling like you saw or heard something before (gabriel gordillo). Odd tastes or smells. Changes in how you see. You may see flashing lights or spots. Symptoms after a seizure Feeling confused. Feeling sleepy. Headache. Sore muscles. How is this treated? If your seizure stops on its own, you will not need treatment. If your seizure lasts longer than 5 minutes, you will normally need treatment. Treatment may include: Medicines given through an IV tube. Avoiding things, such as medicines, that are known to cause your seizures. Medicines to prevent seizures. A device to prevent or control seizures. Surgery. A diet low in carbohydrates and high in fat (ketogenic diet). Follow these instructions at home: Medicines Take zphb-msf-yupivmm and prescription medicines only as told by your doctor. Avoid foods or drinks that may keep your medicine from working, such as alcohol. Activity Follow instructions about driving, swimming, or doing things that would be dangerous if you had another seizure. Wait until your doctor says it is safe for you to do these things. If you live in the [place] ask your local department of motor vehicles when you can drive. Get a lot of rest. Teaching others Teach friends and family what to do when you have a seizure. They should: ?Help you get down to the ground. ?Protect your head and body. ?Loosen any clothing around your neck. ?Turn you on your side. ?Know whether or not you need emergency care. ?Stay with you until you are better. Also, tell them what not to do if you have a seizure. Tell them: ?They should not hold you down. ?They should not put anything in your mouth. General instructions Avoid anything that gives you seizures. Keep a seizure diary. Write down: ?What you remember about each seizure. ?What you think caused each seizure. Keep all follow-up visits. Contact a doctor if: You have another seizure or seizures. Call the doctor each time you have a seizure. The pattern of your seizures changes. You keep having seizures with treatment. You have symptoms of being sick or having an infection. You are not able to take your medicine. Get help right away if: You have any of these problems: ?A seizure that lasts longer than 5 minutes. ?Many seizures in a row and you do not feel better between seizures. ?A seizure that makes it harder to breathe. ?A seizure and you can no longer speak or use part of your body. You do not wake up right after a seizure. You get hurt during a seizure. You feel confused or have pain right after a seizure. These symptoms may be an emergency. Get help right away. Call your local emergency services (911 in the [place] Do not wait to see if the symptoms will go away. Do not drive yourself to the hospital. Summary A seizure is a sudden burst of abnormal electrical and chemical activity in the brain. Seizures normally last from 30 seconds to 2 minutes. Causes of seizures include illness, injury to the head, low levels of blood sugar or salt, and certain conditions. Most seizures will stop on their own in less than 5 minutes. Seizures that last longer than 5 minutes are a medical emergency and need treatment right away. Many medicines are used to treat seizures. Take tbwy-wac-nzszuxd and prescription medicines only as told by your doctor. This information is not intended to replace advice given to you by your health care provider. Make sure you discuss any questions you have with your health care provider. Document Revised: 02/25/2021 Document Reviewed: 02/27/2021 [employer] Patient Education 2023 [employer]. 10/20/2024 11:40:02 Vitamin B12 Deficiency, Wrua-qm-Rrrt Vitamin B12 Deficiency Vitamin B12 deficiency means that your body does not have enough vitamin B12. The body needs this important vitamin: To make red blood cells. To make genes (DNA). To help the nerves work. If you do not have enough vitamin B12 in your body, you can have health problems, such as not having enough red blood cells in the blood (anemia). What are the causes? Not eating enough foods that contain vitamin B12. Not being able to take in (absorb) vitamin B12 from the food that you eat. Certain diseases. A condition in which the body does not make enough of a certain protein. This results in your body not taking in enough vitamin B12. Having a surgery in which part of the stomach or small intestine is taken out. Taking medicines that make it hard for the body to take in vitamin B12. These include: ?Heartburn medicines. ?Some medicines that are used to treat diabetes. What increases the risk? Being an older adult. Eating a vegetarian or vegan diet that does not include any foods that come from animals. Not eating enough foods that contain vitamin B12 while you are . Taking certain medicines. Having alcoholism. What are the signs or symptoms? In some cases, there are no symptoms. If the condition leads to too few blood cells or nerve damage, symptoms can occur, such as: Feeling weak or tired. Not being hungry. Losing feeling (numbness) or tingling in your hands and feet. Redness and burning of the tongue. Feeling sad (depressed). Confusion or memory problems. Trouble walking. If anemia is very bad, symptoms can include: Being short of breath. Being dizzy. Having a very fast heartbeat. How is this treated? Changing the way you eat and drink, such as: ?Eating more foods that contain vitamin B12. ?Drinking little or no alcohol. Getting vitamin B12 shots. Taking vitamin B12 supplements by mouth (orally). Your doctor will tell you the dose that is best for you. Follow these instructions at home: Eating and drinking Eat foods that come from animals and have a lot of vitamin B12 in them. These include: ?Meats and poultry. This includes beef, pork, chicken, turkey, and organ meats, such as liver. ?Seafood, such as clams, rainbow trout, salmon, tuna, and morelia. ?Eggs. ?Dairy foods such as milk, yogurt, and cheese. Eat breakfast cereals that have vitamin B12 added to them (are fortified). Check the label. The items listed above may not be a complete list of foods and beverages you can eat and drink. Contact a dietitian for more information. Alcohol use Do not drink alcohol if: ?Your doctor tells you not to drink. ?You are , may be , or are planning to become . If you drink alcohol: ?Limit how much you have to: ?0 1 drink a day for women. ?0 2 drinks a day for men. ?Know how much alcohol is in your drink. In the [place] one drink equals one 12 oz bottle of beer (355 mL), one 5 oz glass of wine (148 mL), or one 1 oz glass of hard liquor (44 mL). General instructions Get any vitamin B12 shots if told by your doctor. Take supplements only as told by your doctor. Follow the directions. Keep all follow-up visits. Contact a doctor if: Your symptoms come back. Your symptoms get worse or do not get better with treatment. Get help right away if: You have trouble breathing. You have a very fast heartbeat. You have chest pain. You get dizzy. You faint. These symptoms may be an emergency. Get help right away. Call 911. Do not wait to see if the symptoms will go away. Do not drive yourself to the hospital. Summary Vitamin B12 deficiency means that your body is not getting enough of the vitamin. In some cases, there are no symptoms of this condition. Treatment may include making a change in the way you eat and drink, getting shots, or taking supplements. Eat foods that have vitamin B12 in them. This information is not intended to replace advice given to you by your health care provider. Make sure you discuss any questions you have with your health care provider. Document Revised: 04/16/2022 Document Reviewed: 04/16/2022 [employer] Patient Education 2023 [employer]. 10/20/2024 11:40:02 Vitamin D Deficiency, Rbvl-hl-Wfau Vitamin D Deficiency Vitamin D deficiency is when your body does not have enough vitamin D. Vitamin D is important because: It helps your body use certain minerals. It helps to keep your bones healthy. It lessens irritation and swelling (inflammation). It helps the body's defense system (immune system) work better. Not getting enough vitamin D can make your bones soft. What are the causes? Not eating enough foods that have vitamin D in them. Not getting enough sun. Having diseases that make it hard for your body to take in vitamin D. Having had part of your stomach or part of your small intestine taken out. What increases the risk? Being an older adult. Not spending much time outdoors. Living in a long-term care center. Having dark skin. Taking certain medicines. Being overweight or very overweight (obese). Having long-term (chronic) kidney or liver disease. What are the signs or symptoms? In mild cases, there may be no symptoms. If the condition is very bad, symptoms may include: Bone pain. Muscle pain. Not being able to walk normally. Bones that break easily. Joint pain. How is this treated? Treatment may include taking supplements as told by your doctor. Your doctor will tell you what dose is best for you. This may include taking: Vitamin D. Calcium. Follow these instructions at home: Eating and drinking Eat foods that have vitamin D in them, such as: Dairy products, cereals, or juices that have vitamin D added to them (are fortified). Check the label. Fish, such as salmon or trout. Eggs. The vitamin D is in the yolk. Mushrooms that were treated with UV light. Beef liver. The items listed above may not be a complete list of foods and beverages you can eat and drink. Contact a dietitian for more information. General instructions Take zbbq-ozt-ywrizcw and prescription medicines only as told by your doctor. Take supplements only as told by your doctor. Get sunlight in a safe way. Do not use a tanning bed. Stay at a healthy weight. Lose weight if you need to. Keep all follow-up visits. How is this prevented? Eating foods that naturally have vitamin D in them. Eating or drinking foods and drinks that have vitamin D added to them, such as cereals, juices, and milk. Taking vitamin D or a multivitamin that has vitamin D in it. Being in the sun. Your body makes vitamin D when your skin gets sunlight. Contact a doctor if: Your symptoms do not go away. You feel like you may vomit (nauseous). You vomit. You poop less often than normal, or you have trouble pooping (constipation). Summary Vitamin D deficiency is when your body does not have enough vitamin D. Vitamin D helps to keep your bones healthy. This condition is often treated by taking a supplement. Your doctor will tell you what dose is best for you. This information is not intended to replace advice given to you by your health care provider. Make sure you discuss any questions you have with your health care provider. Document Revised: 2022 Document Reviewed: 2022 [employer] Patient Education 2023 [employer]. 10/20/2024 11:40:02 Vitamin D Test Vitamin D Test Why am I having this test? Vitamin D is a vitamin that your body makes when you are exposed to sunlight. It is also found naturally in fish and eggs, and it is added to some foods, such as cereals and dairy products. You need vitamin D to keep your bones healthy and to support your body's defense system (immune system). You may have a vitamin D test: To help diagnose softening of the bones (osteomalacia), thin or weak bones (osteoporosis), or other bone disorders. To monitor treatment of osteoporosis or other bone disorders. If you have symptoms of a lack (deficiency) of vitamin D, such as muscle weakness, bone pain, or joint pain. If you lack certain nutrients in your diet (dietary deficiencies). If you have problems absorbing nutrients during digestion. What is being tested? There are two types of vitamin D tests that measure slightly different things: The 25-hydroxyvitamin D test measures how much of a substance called 25-hydroxyvitamin D is in your blood. The body converts vitamin D to 25-hydroxyvitamin D in the liver. Measuring how much 25-hydroxyvitamin D is in your blood provides a good idea of your vitamin D levels. This is the most common type of vitamin D test. The 1,25-dihydroxyvitamin D test measures how much of a substance called 1,25-dihydroxyvitamin D is in your blood. The body converts vitamin D into this substance and then uses it for various functions. This test provides an idea of your total vitamin D levels. What kind of sample is taken? A blood sample is required for this test. It is usually collected by inserting a needle into a blood vessel or by sticking a finger with a small needle. Tell a health care provider about: Any allergies you have. All medicines you are taking, including vitamins, herbs, eye drops, creams, and chhf-hyx-wqsqoeh medicines. Any bleeding problems you have. Any surgeries you have had. Any medical conditions you have. Whether you are or may be . How are the results reported? Your test results will be reported as a value that tells you how much vitamin D is in your blood. Your health care provider will compare your results to normal ranges that were established after testing a large group of people (reference ranges). Reference ranges may vary among labs and hospitals. For vitamin D tests, common reference ranges are: 25-hydroxyvitamin D: 25 80 ng/mL. 1,25-dihydroxyvitamin D: ?Males: 18 64 pg/mL. ?Females: 18 78 pg/mL. What do the results mean? If your result is within your reference range, this means that you have a normal amount of vitamin D in your blood. If your result is lower than your reference range, this means that you have too little vitamin D in your body. This can range from slightly low (vitamin D insufficiency) to very low (vitamin D deficiency). Low levels of vitamin D can indicate: ?Not having enough exposure to sunlight. ?Not eating enough foods that contain vitamin D. ?Osteoporosis. ?Kidney disease. ?Liver disease. ?A bone disease that makes the bones weak, soft, or poorly developed (rickets). ?Osteomalacia. ?The body not absorbing vitamin D normally (gastrointestinal malabsorption). If your result is higher than your reference range, this means that you have too much vitamin D in your body. This can result from: Taking too much vitamin D through dietary supplements. A medical condition that causes inflammation in your organs and other areas of your body (sarcoidosis). Talk with your health care provider about what your results mean. Questions to ask your health care provider Ask your health care provider, or the department that is doing the test: When will my results be ready? How will I get my results? What are my treatment options? What other tests do I need? What are my next steps? Summary You may have a vitamin D test to determine if your body has enough vitamin D. You need vitamin D to keep your bones healthy and to support your body's defense system (immune system). Your vitamin D level is determined with a blood test. Talk with your health care provider about what your results mean. This information is not intended to replace advice given to you by your health care provider. Make sure you discuss any questions you have with your health care provider. Document Revised: 2022 Document Reviewed: 2022 [employer] Patient Education 2023 [employer]. 10/20/2024 11:40:02 Migraine Headache, Xmsv-to-Zgus Migraine Headache A migraine headache is a very strong throbbing pain on one or both sides of your head. This type of headache can also cause other symptoms. It can last from 4 hours to 3 days. Talk with your doctor about what things may bring on (trigger) this condition. What are the causes? The exact cause of a migraine is not known. This condition may be brought on or caused by: Smoking. Medicines, such as: ?Medicine used to treat chest pain (nitroglycerin). ? control pills. ?Estrogen. ?Some blood pressure medicines. Certain substances in some foods or drinks. Foods and drinks, such as: ?Cheese. ?Chocolate. ?Alcohol. ?Caffeine. Doing physical activity that is very hard. Other things that may trigger a migraine headache include: Periods. . Hunger. Stress. Getting too much or too little sleep. Weather changes. Feeling tired (fatigue). What increases the risk? Being [age] years old. Being female. Having a family history of migraine headaches. Being . Having a mental health condition, such as being sad (depressed) or feeling worried or nervous (anxious). Being very overweight (obese). What are the signs or symptoms? A throbbing pain. This pain may: ?Happen in any area of the head, such as on one or both sides. ?Make it hard to do daily activities. ?Get worse with physical activity. ?Get worse around bright lights, loud noises, or smells. Other symptoms may include: ?Feeling like you may vomit (nauseous). ?Vomiting. ?Dizziness. Before a migraine headache starts, you may get warning signs (an aura). An aura may include: ?Seeing flashing lights or having blind spots. ?Seeing bright spots, halos, or zigzag lines. ?Having tunnel vision or blurred vision. ?Having numbness or a tingling feeling. ?Having trouble talking. ?Having weak muscles. After a migraine ends, you may have symptoms. These may include: ?Tiredness. ?Trouble thinking (concentrating). How is this treated? Taking medicines that: ?Relieve pain. ?Relieve the feeling like you may vomit. ?Prevent migraine headaches. Treatment may also include: ?Acupuncture. ?Lifestyle changes like avoiding foods that bring on migraine headaches. ?Learning ways to control your body functions (biofeedback). ?Therapy to help you know and deal with negative thoughts (cognitive behavioral therapy). Follow these instructions at home: Medicines Take oxbd-sfl-elbklgf and prescription medicines only as told by your doctor. If told, take steps to prevent problems with pooping (constipation). You may need to: ?Drink enough fluid to keep your pee (urine) pale yellow. ?Take medicines. You will be told what medicines to take. ?Eat foods that are high in fiber. These include beans, whole grains, and fresh fruits and vegetables. ?Limit foods that are high in fat and sugar. These include fried or sweet foods. Ask your doctor if you should avoid driving or using machines while you are taking your medicine. Lifestyle Do not drink alcohol. Do not smoke or use any products that contain nicotine or tobacco. If you need help quitting, ask your doctor. Get 7 9 hours of sleep each night, or the amount recommended by your doctor. Find ways to deal with stress, such as meditation, deep breathing, or yoga. Try to exercise often. This can help lessen how bad and how often your migraines happen. General instructions Keep a journal to find out what may bring on your migraine headaches. This can help you avoid those things. For example, write down: ?What you eat and drink. ?How much sleep you get. ?Any change to your medicines or diet. If you have a migraine headache: ?Avoid things that make your symptoms worse, such as bright lights. ?Lie down in a dark, quiet room. ?Do not drive or use machinery. ?Ask your doctor what activities are safe for you. Where to find more information [employer]raine [employer] (CH[facility]): headachemigraine.org [employer]: americanmigrainefoundation.org National Headache Foundation: headaches.org Contact a doctor if: You get a migraine headache that is different or worse than others you have had. You have more than 15 days of headaches in one month. Get help right away if: Your migraine headache gets very bad. Your migraine headache lasts more than 72 hours. You have a fever or stiff neck. You have trouble seeing. Your muscles feel weak or like you cannot control them. You lose your balance a lot. You have trouble walking. You faint. You have a seizure. This information is not intended to replace advice given to you by your health care provider. Make sure you discuss any questions you have with your health care provider. Document Revised: 04/18/2023 Document Reviewed: 04/18/2023 [employer] Patient Education 2023 [employer]. Follow Up Care 10/19/2024 17:04:31 With:JUDI YOUSSEF Address: [address] [place] [place] [phone] Business (1) When:1 to 2 days With:Randy BAKER, REGINALDO Baker Address: [facility] [address] [place] [address]- When:2 to 4 weeks [facility] 10-20-2024 Note Patient Education - Text Gastroenterology Vitamin B12 Deficiency Vitamin B12 deficiency means that your body does not have enough vitamin B12. The body needs this important vitamin: ??? To make red blood cells. ??? To make genes (DNA). ??? To help the nerves work. If you do not have enough vitamin B12 in your body, you can have health problems, such as not having enough red blood cells in the blood (anemia). What are the causes? Not eating enough foods that contain vitamin B12. ??? Not being able to take in (absorb) vitamin B12 from the food that you eat. ??? Certain diseases. ??? A condition in which the body does not make enough of a certain protein. This results in your body not taking in enough vitamin B12. ??? Having a surgery in which part of the stomach or small intestine is taken out. ??? Taking medicines that make it hard for the body to take in vitamin B12. These include: ? Heartburn medicines. ? Some medicines that are used to treat diabetes. What increases the risk? Being an older adult. ??? Eating a vegetarian or vegan diet that does not include any foods that come from animals. ??? Not eating enough foods that contain vitamin B12 while you are . ??? Taking certain medicines. ??? Having alcoholism. What are the signs or symptoms? In some cases, there are no symptoms. If the condition leads to too few blood cells or nerve damage, symptoms can occur, such as: ??? Feeling weak or tired. ??? Not being hungry. ??? Losing feeling (numbness) or tingling in your hands and feet. ??? Redness and burning of the tongue. ??? Feeling sad (depressed). ??? Confusion or memory problems. ??? Trouble walking. If anemia is very bad, symptoms can include: ??? Being short of breath. ??? Being dizzy. ??? Having a very fast heartbeat. How is this treated? Changing the way you eat and drink, such as: ? Eating more foods that contain vitamin B12. ? Drinking little or no alcohol. ??? Getting vitamin B12 shots. ??? Taking vitamin B12 supplements by mouth (orally). Your doctor will tell you the dose that is best for you. Follow these instructions at home: Eating and drinking ??? Eat foods that come from animals and have a lot of vitamin B12 in them. These include: ? Meats and poultry. This includes beef, pork, chicken, turkey, and organ meats, such as liver. ? Seafood, such as clams, rainbow trout, salmon, tuna, and morelia. ? Eggs. ? Dairy foods such as milk, yogurt, and cheese. ??? Eat breakfast cereals that have vitamin B12 added to them (are fortified). Check the label. The items listed above may not be a complete list of foods and beverages you can eat and drink. Contact a dietitian for more information. Alcohol use ??? Do not drink alcohol if: ? Your doctor tells you not to drink. ? You are , may be , or are planning to become . ??? If you drink alcohol: ? Limit how much you have to: ? 0?1 drink a day for women. ? 0?2 drinks a day for men. ? Know how much alcohol is in your drink. In the [place] one drink equals one 12 oz bottle of beer (355 mL), one 5 oz glass of wine (148 mL), or one 1? oz glass of hard liquor (44 mL). General instructions ??? Get any vitamin B12 shots if told by your doctor. ??? Take supplements only as told by your doctor. Follow the directions. ??? Keep all follow-up visits. Contact a doctor if: ??? Your symptoms come back. ??? Your symptoms get worse or do not get better with treatment. Get help right away if: ??? You have trouble breathing. ??? You have a very fast heartbeat. ??? You have chest pain. ??? You get dizzy. ??? You faint. These symptoms may be an emergency. Get help right away. Call 911. ??? Do not wait to see if the symptoms will go away. ??? Do not drive yourself to the hospital. Summary ??? Vitamin B12 deficiency means that your body is not getting enough of the vitamin. ??? In some cases, there are no symptoms of this condition. ??? Treatment may include making a change in the way you eat and drink, getting shots, or taking supplements. ??? Eat foods that have vitamin B12 in them. This information is not intended to replace advice given to you by your health care provider. Make sure you discuss any questions you have with your health care provider. Document Revised: 04/16/2022 Document Reviewed: 04/16/2022 [employer] Patient Education ? 2023 [employer]. Neurology Seizure, Adult A seizure is a sudden burst of abnormal electrical and chemical activity in the brain. Seizures usually last from 30 seconds to 2 minutes. What are the causes? Common causes of this condition include: ??? Fever or infection. ??? Problems that affect the brain. These may include: ? A brain or head injury. ? Bleeding in the brain. ? A brain tumor. ??? Low levels of blood sugar or salt. ??? Kidney problems or liver problems. ??? Conditions (more content not included)... [facility] 10-20-2024 Evaluation + Plan note Extrac jun from: Title:Consult Note-neurology Author:Rodney PERRY N ichole Date:10/20/24 The patient is a 54-year-old right-handed white female with a history of attention hyperlipidemia and seizure who was admitted to the hospital with sudden onset of staring episode associated with right-sided weakness. Possible etiologies include cerebral ischemia or transient ischemic attack secondary to artery to artery embolus, cerebral artery thrombosis, or cardioembolic event. I cannot exclude cerebral hypoperfusion from intracranial or extracranial cerebral artery stenosis contributing to the patient's symptoms. Due to the high morbidity and mortality associated with stroke the patient is admitted to the hospital for further workup and evaluation. Patient's initial evaluation with CT scan of the brain, MRI scan of the brain, an MR angiogram head and neck does not reveal evidence of acute cerebral ischemia. I can not completely exclude seizure contributing to component of the patient's symptoms including alteration of awareness. The patient may have a component of carpal kidded migraine contributing to her symptoms. -I have personally reviewed and reviewed with the patient the MRI of the brain which does not reveal evidence of cerebral ischemia or other intracranial process which may be contributing to the patient's symptoms to my interpretation -I have personally reviewed and reviewed with the patient the MR angiogram of the neck and brain which does not reveal evidence of any intracranial cerebral artery stenosis to my interpretation -I recommend continuing the patient on telemetry while in the hospital to assess for a cardiac arrhythmia which may contribute to a cardioembolic event -I recommend aspirin 81 mg daily for secondary stroke prevention -I recommend screening and treatment of stroke risk factors including hypertension, hyperlipidemia, diabetes mellitus -I recommend the speech therapy assessment -I recommend the physical therapy and occupational therapy assessment -I recommend obtaining an EEG to assess for underlying epileptiform activity which may be contributing to a component of the patient's symptoms. -I recommend DVT prevention with SCD stockings or an equivalent -I counseled the patient on the possible diagnoses, prognosis, evaluation, and treatment options. I answered all questions. -I discussed the above recommendations with the hospitalist -I recommend the patient follow up in adult outpatient neurology clinic 1. Stroke-like symptoms (R29.90: Unspecified symptoms and signs involving the nervous system) 2. Migraine headache (G43.909: Migraine, unspecified, not intractable, without status migrainosus) 3. Anemia (D64.9: Anemia, unspecified) 4. Hypokalemia (E87.6: Hypokalemia) 5. HTN (hypertension) (I10: Essential (primary) hypertension) 6. HLD (hyperlipidemia) (E78.5: Hyperlipidemia, unspecified) 7. Gastroparesis (K31.84: Gastroparesis) 8. Acid reflux (K21.9: Gastro-esophageal reflux disease without esophagitis) 9. Seizure (R56.9: Unspecified convulsions) 10. Osteoarthritis (M19.90: Unspecified osteoarthritis, unspecified site) 11. Obesity due to excess calories (E66.09: Other obesity due to excess calories) 12. On deep vein thrombosis (DVT) prophylaxis (Z79.899: Other [place] drug therapy) Abdominal pain (R10.9: Unspecified abdominal pain) Extracted from: Title:Admission H & P Author:Yovanny WALLS enee Date:10/19/24 Awaiting [facility] rec for all dx. 1. Stroke-like symptoms (R29.90: Unspecified symptoms and signs involving the nervous system) + PETE, + staring off, + b/l LE weakness, -DDx: TIA vs. CVA vs. Seizure vs. complicated migraine -CT head: No acute process -Asa 81mg daily -MRI head: pending -MRA head/neck: pending -Echo w/ bubbles: pending MRI results -Lipid panel: pending -A1c: pending -Etoh, UDS - pending -Neuro-checks -PT/OT - pending -ST - pt. declines, states no difficulty eating/swallowing, awaiting dysphagia -Neuro checks - pending -No driving until cleared from neuro at outpatient f/u -Allow for permissive hypertension times 24 hours - Tx. for sbp > 220, thereafter sbp < 140, Dbp < 90 Consult neuro: pending 2. Migraine headache (G43.909: Migraine, unspecified, not intractable, without status migrainosus) + photophobia, -Migraine cocktail given in ED -Neuro following 3. Anemia (D64.9: Anemia, unspecified) Baseline hgb. level - no recent labs -No acute bleeding noted, hemodynamically stable -Hemoccult stool - pending -Hepatic panel - wnl -Anemia panel - pending -Trend labs -Outpt. f/u w/ GI for possible scopes - defer to PCP 4. Hypokalemia (E87.6: Hypokalemia) Replete K/Mag prn -Trend labs 5. HTN (hypertension) (I10: Essential (primary) hypertension) 6. HLD (hyperlipidemia) (E78.5: Hyperlipidemia, unspecified) 7. Gastroparesis (K31.84: Gastroparesis) 8. Acid reflux (K21.9: Gastro-esophageal reflux disease without esophagitis) 9. Seizure (R56.9: Unspecified convulsions) Seizure precautions 10. Osteoarthritis (M19.90: Unspecified osteoarthritis, unspecified site) -Tylenol 11. Obesity due to excess calories (E66.09: Other obesity due to excess calories) BMI 31 --Educated on need for lifestyle modifications with goal of weight loss as obesity causes a pro- inflamm state resulting in a negative impact on co-morbid conditions. 12. On deep vein thrombosis (DVT) prophylaxis (Z79.899: Other [place] [facility] drug therapy) -Lovenox, early ambulation Orders: aspirin, 81 mg = 1 tab(s), Tab-EC, Oral, Daily, NOW, Start date 10/19/24 18:37:00 EST, 10/19/24 18:37:00 EST enoxaparin, 40 mg = 0.4 mL, Injection, SubCutaneous, Daily for 30 day(s), Stop date 11/19/24 8:59:00 EDT, Routine, Start date 10/20/24 9:00:00 EST, 10/19/24 18:37:00 EST ondansetron, 4 mg = 2 mL, Injection, IV Push, q6hr PRN Nausea/Vomiting, Routine, Start date 10/19/24 18:37:00 EST, 10/19/24 18:37:00 EST potassium chloride + Generic Diluent 100 mL, 20 mEq = 100 mL, IV Piggyback, q2hr for 2 dose(s), Stop date 10/19/24 22:59:00 EST, Routine, Start date 10/19/24 19:00:00 EST, 50 mL/hr, Infuse over 2 hour(s), 10/19/24 18:51:00 EST Ambulate with Assistance Basic Metabolic Panel Below the Knee Intermittent Pneumatic Compression Device Cardiac Monitoring CBC w/ Auto Diff Communication Order Communication Order Physician to Nursing Consult to Neurology Drug Screen Urine Dysphagia Screen Ethanol Level Evaluate Need For Continued Telemetry Ferritin Folate Level HgbA1c Intake and Output Iron Level Lab Miscellaneous-LC Lactate Dehydrogenase Lipid Panel MRA Head w/o Contrast MRA Neck w/o Contrast MRI Brain w/o Contrast Neurological Assessment Neurological Assessment Notify Provider Vital Signs Notify Provider Vital Signs NPO Diet Occupational Therapy Evaluate Patient, Develop a Plan of Care and Implement Plan Oxygen Protocol Pad Siderails Physical Therapy Evaluate Patient, Develop a Plan of Care and Implement Plan Precautions Pulse Oximetry Resuscitation Status - Full Reticulocyte Count Stool Occult Blood Stroke Education Stroke Quality Measures TIBC Calculated TSH With T4fr Reflex UA with Cult Rflx Vital Signs Vitamin B12 Level Vitamin D 25 Hydroxy Weight -Plan discussed w/ patient, nursing staff and CRM. -Disposition: Pt. will likely be < 2MN stays for treatment of above This report was transcribed using voice recognition software. Every effort was made to ensure accuracy, however, inadvertently computerized sanitary inspector mistakes may be present. Extracted from: Title:ED Note Author:Prosper Bergman DO Date:10/06 12/28 Migraine headache (G43.909: Migraine, unspecified, not intractable, without status migrainosus) Weakness (R53.1: Weakness) Orders: diphenhydrAMINE, 25 mg = 0.5 mL, Injection, IV, Once, Stop date 10/19/24 18:03:00 EST, STAT, Start date 10/19/24 18:03:00 EST, 10/19/24 18:03:00 EST ketorolac, 30 mg = 1 mL, Injection, IV, Once, Stop date 10/19/24 18:03:00 EST, STAT, Start date 10/19/24 18:03:00 EST, 10/19/24 18:03:00 EST metoclopramide, 5 mg = 1 mL, Injection, IV Push, Once, Stop date 10/19/24 18:03:00 EST, STAT, Start date 10/19/24 18:03:00 EST, 10/19/24 18:03:00 EST ED Physician consult Hospitalist for continued care NIH Stroke Scale [facility] [id number] NoteInterdisciplinary Note - PT PT Evaluation completed with an [facility] of . Pt was Independent for bed mobility and transfers. Pt was able to ambulate at Mod I level due to right bone pain from a previous fall on ice. Pt performing well this date. [facility] NotePatient Education - Text Gastroenterology Vitamin B12 Deficiency Vitamin B12 deficiency means that your body does not have enough vitamin B12. The body needs this important vitamin: ??? To make red blood cells. ??? To make genes (DNA). ??? To help the nerves work. If you do not have enough vitamin B12 in your body, you can have health problems, such as not having enough red blood cells in the blood (anemia). What are the causes? Not eating enough foods that contain vitamin B12. ??? Not being able to take in (absorb) vitamin B12 from the food that you eat. ??? Certain diseases. ??? A condition in which the body does not make enough of a certain protein. This results in your body not taking in enough vitamin B12. ??? Having a surgery in which part of the stomach or small intestine is taken out. ??? Taking medicines that make it hard for the body to take in vitamin B12. These include: ? Heartburn medicines. ? Some medicines that are used to treat diabetes. What increases the risk? Being an older adult. ??? Eating a vegetarian or vegan diet that does not include any foods that come from animals. ??? Not eating enough foods that contain vitamin B12 while you are . ??? Taking certain medicines. ??? Having alcoholism. What are the signs or symptoms? In some cases, there are no symptoms. If the condition leads to too few blood cells or nerve damage, symptoms can occur, such as: ??? Feeling weak or tired. ??? Not being hungry. ??? Losing feeling (numbness) or tingling in your hands and feet. ??? Redness and burning of the tongue. ??? Feeling sad (depressed). ??? Confusion or memory problems. ??? Trouble walking. If anemia is very bad, symptoms can include: ??? Being short of breath. ??? Being dizzy. ??? Having a very fast heartbeat. How is this treated? Changing the way you eat and drink, such as: ? Eating more foods that contain vitamin B12. ? Drinking little or no alcohol. ??? Getting vitamin B12 shots. ??? Taking vitamin B12 supplements by mouth (orally). Your doctor will tell you the dose that is best for you. Follow these instructions at home: Eating and drinking ??? Eat foods that come from animals and have a lot of vitamin B12 in them. These include: ? Meats and poultry. This includes beef, pork, chicken, turkey, and organ meats, such as liver. ? Seafood, such as clams, rainbow trout, salmon, tuna, and morelia. ? Eggs. ? Dairy foods such as milk, yogurt, and cheese. ??? Eat breakfast cereals that have vitamin B12 added to them (are fortified). Check the label. The items listed above may not be a complete list of foods and beverages you can eat and drink. Contact a dietitian for more information. Alcohol use ??? Do not drink alcohol if: ? Your doctor tells you not to drink. ? You are , may be , or are planning to become . ??? If you drink alcohol: ? Limit how much you have to: ? 0?1 drink a day for women. ? 0?2 drinks a day for men. ? Know how much alcohol is in your drink. In the [place] one drink equals one 12 oz bottle of beer (355 mL), one 5 oz glass of wine (148 mL), or one 1? oz glass of hard liquor (44 mL). General instructions ??? Get any vitamin B12 shots if told by your doctor. ??? Take supplements only as told by your doctor. Follow the directions. ??? Keep all follow-up visits. Contact a doctor if: ??? Your symptoms come back. ??? Your symptoms get worse or do not get better with treatment. Get help right away if: ??? You have trouble breathing. ??? You have a very fast heartbeat. ??? You have chest pain. ??? You get dizzy. ??? You faint. These symptoms may be an emergency. Get help right away. Call 911. ??? Do not wait to see if the symptoms will go away. ??? Do not drive yourself to the hospital. Summary ??? Vitamin B12 deficiency means that your body is not getting enough of the vitamin. ??? In some cases, there are no symptoms of this condition. ??? Treatment may include making a change in the way you eat and drink, getting shots, or taking supplements. ??? Eat foods that have vitamin B12 in them. This information is not intended to replace advice given to you by your health care provider. Make sure you discuss any questions you have with your health care provider. Document Revised: 04/16/2022 Document Reviewed: 04/16/2022 [employer] Patient Education ? 2023 [employer] Neurology Migraine Headache A migraine headache is a very strong throbbing pain on one or both sides of your head. This type ofheadache can also cause other symptoms. It can last from 4 hours to 3 days. Talk with your doctor about what things may bring on (trigger) this condition. What are the causes? The exact cause of a migraine is not known. This condition may be brought on or caused by: ??? Smoking. ??? Medicines, such as: ? Medicine used to treat chest pain (nitrogl (more content not included)... [facility]02-15-2025 NoteConsultation Note Chief Complaint stroke Reason for Consultation Stroke History of Present Illness The patient is a 54-year-old female who assesses in neurological consultation by the hospitalist for stroke. Patient has past medical history of retention, hyperlipidemia, migraine headaches, and remote seizure. The patient presented to the emergency room when she was noticed by coworkers to have right facial droop and was less responsive. The patient was reportedly staring off. Patient does not recall being unresponsive. The patient does report having a headache at the time. The patient was evaluated in the emergency room with a noncontrast CT scan of the brain which did not show evidence ofacute infarct or hemorrhage. Patient was admitted to the hospital for further workup and evaluation. Patient did have an MRI scan of the brain which preliminarily does not reveal evidence of acute cerebral ischemia. Patient did have an MR angiogram of the head and neck which does not reveal evidence of obvious significant intracranial or extracranial cerebral artery stenosis or occlusion. There is a diminutive left vertebral artery noted. The patient was started on aspirin 81 mg daily. Patient currently does not report headache. The patient states that she is close to her baseline. Review of Systems Constitutional: no fever, no chills, no sweats, no weakness Respiratory: no shortness of breath, no cough, no orthopnea, no wheezing Cardiovascular: no chest pain, no palpitations, no edema Additional ROS info: Except as noted in the above Review of Systems and in the History of Present Illness all other systems have been reviewed and are negative or noncontributory. Physical Exam Vitals & Measurements T: 36.7 ???C(Axillary) TMIN: 36.7 ???C(Axillary) TMAX: 36.9 ???C(Oral) HR: 54(Monitored) RR: 16 BP:114/63 SpO2: 98% HT: 170.2 cm WT: 85.2 kg The patient is awake and alert. The patient is oriented x3. Language is intact including comprehension and fluency, fund of knowledge is intact, memory is intact. Cranial nerves: Pupils are equal round and reactive to light and accommodation, extraocular movements intact, visual wolff are full to confrontation, funduscopic exam is normal, face is symmetric bilaterally, sensations intact in the face, palate elevates bilaterally, tongue protrudes midline, hearing is intact to finger rub, shoulder shrug is symmetric. Motor exam: Strength testing is 5- out of 5 MRC scale strength in the right upper and lower extremity which fluctuates . Deep tendon reflexes are 1+ and symmetric. Tone is normal throughout. Plantar reflexes flexor bilaterally. Sensory exam: Sensation reveals decreased light touch on the right. Cerebellar exam: [id number] reveals no ataxia. Gait is deferred. The neurological exam was performed by a healthcare professional which was witnessed and supervisedby me via video telemedicine visit consented to by the patient or appropriate patient contact representative. 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 release hand: Obeys both correctly = 0 Best gaze: Normal = 0 Visual field testing: No visual field loss = 0 Facial paresis: Normal symmetric movement = 0 Motor function left arm: Normal = 0 Motor function right arm: Normal = 0 Motor function left leg: Normal = 0 Motor function right leg: Normal = 0 Limb ataxia: No ataxia = 0 Sensory: Normal = 0 Best language: No aphasia = 0 Dysarthria: Normal articulation = 0 Extinction and inattention: Normal = 0 Total Score (severe deficit >22): 0 Notes: Assessment/Plan The patient is a 54-year-old right-handed white female with a history of attention hyperlipidemia and seizure who was admitted to the hospital with sudden onset of staring episode associated with right-sided weakness. Possible etiologies include cerebral ischemia or transient ischemic attack secondary to artery to artery embolus, cerebral artery thrombosis, or cardioembolic event. I cannot exclude cerebral hypoperfusion from intracranial or extracranial cerebral artery stenosis contributing to the patient's symptoms. Due to the high morbidity and mortality associated with stroke the patient is admitted to the hospital for further workup and evaluation. Patient's initial evaluation with CT scan of the brain, MRI scan of the brain, an MR angiogram head and neck does not reveal evidence of acute cerebral ischemia. I can not completely exclude seizure contributing to component of the patient's symptoms including alteration of awareness. The patient may have a component of carpal kidded migraine contributing to her symptoms. -I have personally reviewed and reviewed with the patient the MRI of the brain which does not reveal evidence of cerebral ischemia or other intracranial process which may be contributing to the patient's symptoms to my interpretation -I have personally reviewed and reviewed with the patien (more content not included)...[facility] HospitalComment on above:Result Comment: Electronically Signed By: Diana Stevens RN\.br\Date and Time Signed: 10/20/24 07:52 EST\.br\Electronically Co-Signed By: Rush Padilla MD\.br\Date and Time Co-Signed: 10/20/24 10:24 [id number] NoteHistory and Physical Chief Complaint To ED for facial droop, slurred speech and headache. Unknown LKW. History of Present Illness 54-year-old female with PMH of: HTN, HLD, gastric bezoar, gastroparesis, GERD, migraines,seizures, OA, obesity. -Pt. presented to the ED via EMS from work w/ concerns for stroke like symptoms. -Pt. states that she seemed off to her coworkers who called EMS, she states they told her she had some right facial droop and concerned that she was staring off while in a standing position but did not fall. Glucose via EMS was around 100 per ED note. Patient's main complaint is that she has a significant PETE assoc. w/ generalized weakness not located to one side over the other. Patient denies feve r, chills, cough, sputum production, known COVID exposure, chest pain, pressure, palpitations, N/V/D abd. pain or change in bowel or bladder habits. Patient was evaluated in the ED and referred to the hospitalist service with consultation to neurology. Review of Systems Constitutional: + fatigue/malaise Eye: + photophobia Respiratory: Negative Cardiovascular: Negative. Gastrointestinal: Denies abd pain. Passing flatus. Last BM: 10/19 Musculoskeletal: + b/l LE weakness. Additional ROS info: Except as noted in the above Review of Systems and in the History of Present Illness all other systems have been reviewed and are negative or noncontributory Scoring Freed Fall Risk Score: 35 (10/19/24) Physical Exam Vitals & Measurements T: 36.9 ???C(Oral) HR: 51(Monitored) RR: 16 BP: 146/87 SpO2: 98% HT: 170.2 cm WT: 90.5 kg General: Calm, able to communicate needs, NAD Head: Normocephalic/atraumatic Eyes: Pupils equal, round, and reactive to light. Conjunctivae and sclerae normal, and extraocular movements intact HEENT: Mucous membrane moist. Tongue normal Neck: Trachea midline, neck supple, Chest: No chest wall deformity, no chest wall tenderness Lungs: CTA wolff, no cough/wheezing Cardio: Normal rate, currently in RSR, no edema. Pulses: Normal capillary refill Abdomen: Soft, non-distended, non-tender, normal BS Musculoskeletal: No deformity or scoliosis noted. + gen. 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 affect, Lab Results WBC: 5.4 E9/L (10/19/24 17:06:00) RBC: 3.9 E12/L Low (10/19/24 17:06:00) HGB: 11.9 gm/dL Low (10/19/24 17:06:00) Hct: 34.6 % (10/19/24 17:06:00) MCV: 89.5 fL (10/19/24 17:06:00) MCH: 30.6 pg (10/19/24 17:06:00) MCHC: 34.2 gm/dL (10/19/24 17:06:00) RDW: 14.1 % (10/19/24 17:06:00) Platelet: 424 E9/L (10/19/24 17:06:00) MPV: 7.2 fL (10/19/24 17:06:00) Neutro Auto: 55 % (10/19/24 17:06:00) Lymph Auto: 33.3 % (10/19/24 17:06:00) Fajardo Auto: 7.2 % (10/19/24:06:00) Eos Auto: 3.9 % (10/19/24:06:00) Basophil Auto: 0.6 % (10/19/24:06:00) Neutro Absolute: 2.9 E9/L (10/19/24:06:00) Lymph Absolute: 1.8 E9/L (10/19/24:06:00) Fajardo Absolute: 0.4 E9/L (10/19/24:06:00) Eos Absolute: 0.2 E9/L (10/19/24:06:00) Basophil Absolute: 0 E9/L (10/19/24:06:00) PT: 10.7 second(s) (10/19/24:06:00) INR: 0.96 (10/19/24:06:00) PTT: 40.8 second(s) High (10/19/24:06:00) Glucose Lvl: 107 mg/dL (10/19/24:06:00) BUN: 22 mg/dL High (10/19/24:06:00) Creatinine: 0.8 mg/dL (10/19/24:06:00) eGFR: 87 mL/min/1.73 m2 (10/19/24:06:00) BUN/Creat Ratio: 28 High (10/19/24 17:06:00) Sodium Lvl: 140 mmol/L (10/19/24:06:00) Potassium Lvl: 3.4 mmol/L Low (10/19/24:06:00) Chloride: 110 mmol/L (10/19/24:06:00) CO2: 24 mmol/L (10/19/24:06:00) AGAP: 9 mEq/L (10/19/24:06:00) Calcium Lvl: 8.9 mg/dL (10/19/24:06:00) Alk Phos: 120 Int._Unit/L High (10/19/24 17:06:00) ALT: 11 Int._Unit/L (10/19/24 17:06:00) AST: 14 Int._Unit/L (02/14/25 17:06:00) Total Protein: 6.3 gm/dL (10/19/24 17:06:00) Albumin Lvl: 3.9 gm/dL (10/19/24 17:06:00) Globulin: 2.4 gm/dL (10/19/24 17:06:00) A/G Ratio: 1.6 (10/19/24 17:06:00) Bili Total: 0.4 mg/dL (10/19/24 17:06:00) Magnesium: 1.9 mg/dL (10/19/24 17:06:00) Troponin HS: 10.8 pg/mL (10/19/24 17:06:00) Glucose Cap: 93 mg/dL (10/19/24 17:10:00) POC Device SN: [id number] (10/19/24 17:10:00) POC User ID: [id number] (10/19/24 17:10:00) POC Username: POC Userna (more content not included)...[facility] HospitalComment on above:Result Comment: Electronically Signed By: Guerline BUSTOS\.br\Date and Time Signed: 10/19/24 19:00 EST\.br\Electronically Co- Signed By: Eliezer Lorenzo DO\.br\Date and Time Co-Signed: 10/20/24 06:59 EST 09-17-2024 NoteB[facility] Reason for cardiology visit: Patient here for follow up echo and PFT's. Chief Complaint: Palpitation HPI: 09/17/2024 The patient reports that she has been having more palpitations she describes it as heart racing usually when she is doing something and it occurrs at times while she was resting, it happens about twice a week and sometimes it lasts about 1 hour. 1 time she checked her blood pressure at the time and it was little high and her heart rate was 135 bpm She denies chest pain or shortness of breath at rest or with exertion. At times she feels dizzy describes it as spinning and not related to position and it can last the whole day. She reports being tired but she has been wearing her CPAP every night. She denies orthopnea or paroxysmal nocturnal dyspnea or legs edema She reports that she does not drink any caffeine or alcohol and she has been increasing her fluid intake. 05/14/2024 The patient is here today for [...] chest discomfort. 03/19/2024 Constantino Cardoso is a 54 y.o. female who is here today for [...] Cyclobenzaprine and Penicillins Medications Current Outpatient Medications: acarbose (Precose) 25 mg tablet, Take 1 tablet by mouth in the morning and at bedtime., Disp: , Rfl: cholecalciferol, vitamin D3, 50 mcg (2,000 unit) [...] Rfl: Last Recorded Vitals Visit Vitals BP 120/80 (BP Location: Left arm, Patient Position: Sitting) Pulse 51 Ht 1.702 m (5' 7 ) Wt [...] HGB 9.8 (L) 08/14/2019 HCT 31.2 (L) (more content not included)...[facility] 08-30-2024 History of Present illness Narrative* Jermain Renee RN - 08/30/2024 4:18 PM EST Discharge instructions given to pt, verbalized understanding, all questions answered, pt dischargedhome per ambulatory with discharge scripts. t 4:20 PM * Serge Wild MD - 08/30/2024 6:45 AM EST Images from the original note were not included. PROGRESS NOTE PATIENT NAME: Constantino Cradoso DATE: 08/30/2024 HD: # 2 DIAGNOSIS AND [...] the medical decision making with Resident after thephysical/radiologic exam and laboratory values were reviewed and confirmed. Serge Wild MD * Sumeet Mayberry PT - 08/29/2024 10:11 AM EST Physical Therapy Facility/Department: [facility] RENAL//MED SURG Physical Therapy Initial Assessment [...] activity, no need for skilled PT, Please re- consult if there is change in mobility later [...] a week ago. Pain continued along with gradualworsening of abdominal distention. She did open her bowels 2 days ago - formed stool and small amount this morning. 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 She started feeling dizzy and also started to have nausea. She vomited 3 times this morning. She continues to feel nauseous but has not vomited any further. She continues to pass significant radha unt of flatus. CT scan at the outlying facility reported her surgery and she was transferred for surgical evaluation to [facility]. She had x-ray KUB and was removed by general surgery in the ER. She has been started on section through NG tube and enema. Patient denies experiencing fever, chest pain, shortness of breath, cough, cold, headache, neurological symptoms, urinary symptoms, abnormal genital discharge/bleeding. 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 [facility] Internal Medicine Teaching Residency Program Inpatient Daily Progress Note Patient: Constantino Cardoso Date of : 1970 Acct: [id number] Room: [address] [place] [address] Admit date: 08/28/2024 Today's date: 08/29/24 Number [...] Hypertension Gastroparesis and dysphagia - G[facility]POEM at [facility] in 08/27 Mitral valve prolapse GERD Migraines and severe obeisty - s/p Yirv-xa-U-bypass 2018 presents with a chief complaint of abdominal pain and nausea and vomiting. Patient informs that manfredhas had recurrent episodes of ileus -approximately around 5. This episode started with mild epigastric abdominal pain at home a week ago. Pain continued along with gradual worsening of abdominal distention. She did open her bowels 2 days ago - formed stool and small amount this morning. 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 She had x-ray KUB and was removed [...] Septum was midline, mucosa was without erythema, exudatesor cobblestoning. No thrush was noted. Neck: Supple without thyromegaly. No elevated JVP. Trachea was midline. Respiratory: Chest was symmetrical without dullness to percussion. Breath sounds bilaterally were clear to auscultation. There were no wheezes, rhonchi or rales. There is no intercostal retraction oruse of accessory muscles. No egophony noted. Cardiovascular: [...] for recurrent episodes of ileus who presented withabdominal pain/distention and nausea/vomiting and found to have ileus. Principal Problem: Intestinal obstruction (HCC) CT scan at [facility] -dilated large bowel with air-fluid level Transferred to [facility] -x-ray KUB: Nonobstructive bowel gas pattern, mild [...] Medicine Resident, PGY-1 [facility]; [place], [place] 08/29/2024, 6:54 AM Associated attestation - Obdulio Justice MD - 08/29/2024 3:40 PM EST Attending Physician Statement I have discussed the care of Constantino Cardoso, including pertinent history and exam findings, with the resident. I have seen and examined the patient and the cottrell elements of all parts of the encounterhave been performed by me. I agree with the assessment, plan and orders as documented by the resident with additions . Please note that this chart was generated using voice recognition [employer], a division of [employer] dictation software. Although every effort was made to ensure the accuracy of this automated sanitary inspector, some errors in sanitary inspector may have occurred. * Serge Wild MD - 08/29/2024 6:33 AM EST Images from the original note were not [...] the medical decision making with Resident after thephysical/radiologic exam and laboratory values were reviewed and confirmed. Labs stable, abd films OK. Consider trial liquids around tube. Serge Wild MD [facility] Discharge instructions* Discharge Instructions* Sky Pearce MD - 08/30/2024 12:51 PM [...] as needed for all other the concerns. * Attachments The following attachments cannot be sent through Care Everywhere. * Bowel Obstruction (Maltese) documented in this encounterBon [facility] Hospital Discharge instructions* Discharge Instructions* Larisa Jean, RN - 08/17/2024 1:26 PM EST Sedation or General Anesthesia, Adult Care After Refer to this sheet in the next 24 hours. These instructions provide you with information on caringfor yourself after your procedure. Your caregiver may [...] if your caregiver approves them. Only take olpa-fbf-tabqfpn or prescription medicines for pain, discomfort, or [...] 08/22/2006 Document Revised: 02/20/2013 Document Reviewed: 12/20/2012 [facility] Patient Information 2013 [facility] HospitalSand Sign [facility] .EGD DISCHARGE INSTRUCTIONS Activity: Rest today. No [...] throat or neck pain documented in this encounterBon [facility]11-[facility] History of Present illness Narrative* Kulwant Hodge MD - 07/13/2024 11:10 AM EST Constantino Cardoso is a 54 y.o. female No ref. provider found presents with chief complaint of Hypoglycemia HPI: IM :07/2024 Follow up Visit 07/13/2024, insulin 5.6 ( 2-24), pro insulin 4 (0-10), liver enzyme within normal limits, alkaline phosphatase mildly high 144 ( 44-121), and we gave her CGM 1 is working, and anotherdoes not, and she said had 1 time blood sugar in range 40 HPI: 06/2024 New patient sent from Judi Jerry CNP for episodes of hypoglycemia, A1c in our office 5.8 blood sugar 101, she tried to have gastric bypass but insurance does not approve, has history of hysterectomy, cholecystectomy, has wound left to her umbilicus, and more shaking anxiety when she has episodesI do not have meter or log book [...] recent change. No heart burn, liver or gallbladderdisease; no rectal bleeding or pain : No urinary pain , frequency or odor. MUSCULOSKELETAL: No muscle pain or cramps; no extremity weakness.No joint pain, stiffness, swellingor limitation of movement NEUROLOGY: No H/O seizures, [...] C-peptide not done, no endogenous hyperinsulinemia, I willstart her on acarbose empiric treatment 25 mg twice a day before breakfast and dinner, and see how she is doing clinically, and we will see her in 3 months. Encounter for dietary consultation Diet and exercise reviewed with the patient since Diet and exercise reviewed with the patient Follow up in about 3 months (around 10/13/2024). documented in this encounterCitizens Memorial [id number] History of Present illness Narrative* Kulwant Hodge MD - 06/20/2024 10:50 AM EDT Constantino Cardoso is a 54 y.o. female [...] and more shaking anxiety when she has episodesI do not have meter or log book [...] recent change. No heart burn, liver or gallbladderdisease; no rectal bleeding or pain : No urinary pain , frequency or odor. MUSCULOSKELETAL: No muscle pain or cramps; no extremity weakness.No joint pain, stiffness, swellingor limitation of movement NEUROLOGY: No H/O seizures, [...] two sample of Dexcom 7, and I toldher to download the tomer. to able to [...] 3 weeks (around 07/11/2024). documented in this encounterCitizens Memorial [id number] NoteB[facility] Note Reason for [...] due to vasovagal r (more content not included)...[facility] 05-11-2024 Procedure [facility]08-22-2024 Evaluation note* Author Jennie Ayon [facility] Authored April 26, 2024 9: 26am 53-year-old female with hist ory of hiatal [...] twice or three times daily if needed. [facility] Work Phone: [phone]) 778-220407-15-2024 NoteBellevue [facility] Note Reason for [...] hiatal hernia and acid (more content not included)...[facility] 02-16-2024 Evaluation + Plan note Diagnostic Tests Pending * Urine Culture 02/16/24 [facility]06-12-2024 [facility] Note [...] valve prolapse, and NSVT (nonsustained ventricular tachycardia) ([facility] Surgical History She has a past surgical [...] 14 04/30/2019 ALBUMIN 3.8 04/30/2019 PROT 6.3 08 (more content not included)...[facility] 08-25-2023 NoteHNO ID: [id number] Author: Ellis Mayberry DO Service: ? Author [...] August 25, 2023 TIME: 2:59 PM CSN: [id number] NoteQ3 Patient Name: Constantino Cardoso Procedure Date: 08/25/2023 2:38 PM Date of : 1970 Admit Type: Outpatient Age: 53 Gender: Female Note Status: Finalized Attending MD: Marques Bradley MD, [id number] Procedure: Upper GI endoscopy Indications: Gastroparesis- for [...] the patient. Procedure Code(s): --- Professional --- 33341 Diagnosis Code(s): --- Professional --- K44.9 Z98.890 CPT copyright 2020 [employer]. All rights reserved. Attending Participation: I personally performed the entire procedure. Scope In: 2:59:10 PM Scope Out: 3:37:20 PM MD Marques Rainey MD 08/25/2023 3:41:00 PM This report has been signed electronically by Marques Bradley MD Number of Addenda: 0 Note Initiated On: 08/25/2023 2:38 [facility]11-24-2023 Note HNO ID: [id number] Author: Evelyn Black RN Service: ? Author Type: Registered Nurse Type: Progress Notes Filed: 07/29/2023 11:18 AM Note Text: [facility]11-24[facility] History of Present illness Narrative* Evelyn Black RN - 07/29/2023 11:17 AM EST e documented in this encounterMet[facility] Instructions* Patient Instructions* Melissa Montalvo [...] High Protein, Atkins, Boost Glucose Control, Owyn, [place] Breakfast Essentials Light Start mixed with Fairlife fat free or 1% milk. -Check www.bariatricfusion.com or www.[employer].com for additional options. Take small bites, eat slowly, chew food well, and always eat protein first. Separate eating and drinking by 30 min before and after. Aim for >64 oz water/day. Take small sips and avoid straws. Liquids should be sugar-free, no calories, no carbonation, no caffeine. Protein juarez ([id number], Isopure, Gatorade protein), electrolyte drinks (Gatorade or Powerade zero, sugar free liquid IV or Drip Drop), sugar free jello and sugarfree popsicles are also acceptable. Nutrition Monitoring & Evaluation: increase PO intake >75% of estimated needs, weight check and patient update Need for Follow up: based on surgery status documented in this encounterMetro[facility]11-17-2023 NoteHNO ID: [id number] Author: Melissa Montalvo RD Service: ? Author Type: Registered Dietitian Type: Progress Notes Filed: 07/22/2023 4:06 PM Note Text: [facility] Nutrition Therapy: Virtual Consult - Initial Assessment I have communicated my name and active licensure. The patient?s identity and physical location were verified at the time of this visit. Either the patient or their legal contact representative has been informed of the risks [...] High Protein, Atkins, Boost Glucose Control, Owyn, [place] Breakfast Essentials Light Start mixed with Fairlife fat free or 1% milk. -Check www.bariatricfusion.com or www.[employer].SphereUp for additional options. Take small bites, eat slowly, chew food well, and always eat protein first. Separate eating and drinking by 30 min before and after. Aim for >64 oz water/day. Take small sips and avoid straws. Liquids should be sugar-free, no calories, no carbonation, no caffeine. 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 [place] body weight: 159 lbs. 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 Recommendation was a GPOEM. Will consult with surgeon next week regarding next POC for pt. Pt VU. documented in this encounterMetrohealth [facility]11-17-2023 History of Present illness Narrative* Melissa Montalvo, RD - 07/22/2023 1:15 PM EST [facility] Nutrition Therapy: Virtual Consult - Initial Assessment I have communicated my name and active licensure. The patient s identity and physical location wereverified at the time of this visit. Either the patient or their legal contact representative has been informed of the risks [...] High Protein, Atkins, Boost Glucose Control, Owyn, [place] Breakfast Essentials Light Start mixed with Fairlife [...] calories, no carbonation, no caffeine. Protein juarez ([id number], Isopure, Gatorade protein), electrolyte drinks (Gatorade or [...] significant for adult onset weight gain (maintains lbs, highest 220 lbs in 2018). 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 [place] body weight: 159 lbs. 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 Procedure Code(s): --- Professional --- 17134 Diagnosis Code(s): --- Professional --- K44.9 K31.89 Z98.890 R10.13 CPT copyright 2020 [employer]. All rights reserved. Attending Participation: I personally performed the entire procedure. Scope In: 10:40:19 AM Scope Out: 10:50:37 AM MD Marques Rainey MD 07/14/2023 10:53:09 AM This report has been signed electronically by Marques Bradley MD Number of Addenda: 0 Note Initiated On: 07/14/2023 10:24 [facility]11-09-2023 Nurse Note* Mónica Spaulding RN [...] RN In Department: GASTROENTEROLOGY documented in this encounterMetrohealth [facility]11-08-2023 NoteHNO ID: [id number] Author: Brennen Shaw, PhD Service: ? Author Type: Physician Type: Progress Notes Filed: 07/19/2023 10:07 AM Note Text: [facility] BARIAT[facility] SURG[facility] BEHAVIORAL HEALTH EVALUATION DATE OF SERVICE: July 13, 2023 TIME OF SERVICE: 2:10 PM-3:29 PM COST CENTER: [facility] CPT CODE: - 53255 Brief Emotional/Behavioral Assessment with scoring/documentation - [id number] Virtual Psych Diagnostic Eval BILLING CODE: ENDO PSYL MAIN 78788/Marco DATE OF FIRST SERVICE THIS CYCLE: July 13, 2023 SESSION #: 1 BMI Surgical Pathway Visit type: Bariatric Surgeon Visit I have communicated my name and active licensure. The patient's identity and physical location were verified at the time of this visit. Either the patient or their legal contact representative has been informed of the risks and benefits of -- and alternatives to -- treatment through a remote evaluation and consents to proceed with the evaluation remotely. Zoom for [facility] IDENTIFYING INFORMATION: Ms. Constantino Cardoso is a [...] other people who have undergone the procedure (shelter Specific areas of understanding that should be [...] during the binge episod (more content not included)...[facility]09-22-2023 Miscellaneous Notes* Telephone Encounter - Evelyn [...] Pt agreed with plan. documented in this encounterMet[facility]-2023 NoteHNO ID: [id number] Author: Nabil Bell RT(R) Service: Nuclear Medicine [...] safety can be found using this link: [email or web address]%20Medicine%[email or web address] SIGNATURE: RT Charmaine(R) PATIENT NAME: Constantino Cardoso DATE: May 26, 2023 TIME: 7:17 AM PAGER/CONTACT #:[facility]09-20-2023 NoteHNO ID: [id number] Author: Pedro Gonzalez LPN Service: ? Author Type: LICENSED NURSE Type: Progress Notes Filed: 05/25/2023 4:15 PM Note Text: Name: Constantino Cardoso [facility]#: [id number] Date: 05/25/2023 ESOPHAGEAL MANOMETRY TEST Indication: Nausea [...] patient tolerated the test without difficulty. .[facility] History of Present illness Narrative* Pedro Gonzalez LPN - 05/25/2023 3:55 PM EDT Name: Constantino Cardoso [facility]#: [id number] Date: 05/25/2023 ESOPHAGEAL MANOMETRY TEST Indication: Nausea [...] difficulty. .Pedro Gonzalez LPN documented in this encounterMet[facility]09-11-2023 Miscellaneous Notes* Telephone Encounter - [...] after a gastric bypass. documented in this encounterMet[facility]09-01-2023 NoteHNO ID: [id number] Author: Marques Bradley MD Service: ? Author [...] for internal providers or letter via the [employer] Postal Service for external providers. Chief Complaint: [...] Marques Bradley MD Date: 05/12/2023 Time: 8:15 [facility]08-28-2023 Miscellaneous Notes* Telephone Encounter - Evelyn Black RN - 05/02/2023 9:12 AM EDT [facility] SPECIALTY CARE COORDINATION TELEPHONE ENCOUNTER Chief complaint & duration dysphagia. Type of procedure: hernia repair hiatal with Dr. MORTENSEN in [place] February of 2019. Sending OP notes Nursing assessment (subjective/objective) . pain in chest area and getting worse Went to [facility] March 2023 who told her she needed a stent in her heart..but her c/o were difficulty swallowing and sent pt home and referred her to [facility] and was there in the hospital for [...] appt after records obtained documented in this encounterMetro[facility]08-22-2023 Miscellaneous Notes* Telephone Encounter - Evelyn Black RN - 04/26/2023 2:00 PM EDT [facility] SPECIALTY CARE COORDINATION TELEPHONE ENCOUNTER Second attempt to contact this pt. Pt has upcoming information, and unable to complete any chart prep, history, symptoms, testing etc. LVM and call back number. documented in this encounterMetrohealth [facility]08-17-2023 Evaluation note* Encounter Date Diagnosis Assessment Notes Treatment Notes Treatment Clinical Notes Apr, Esophageal dysmotility (ICD-10 - K22.4) Apr, Esophageal spasm (ICD-10 - K22.4) Apr, Nausea & vomiting (ICD-10 - R11.2) Patinet reports that she still has nausea but no vomiting Patient reports that she is to see Dr. Strong at [facility] Patient is to start dicyclomine 20 mg 4 times daily sent to [facility] today RTO 6 weeks Apr, Dysphagia (ICD-10 - R13.10) [email or web address] Other 08-14-2023 Miscellaneous Notes* Telephone Encounter - Evelyn Black RN - 04/18/2023 2:13 PM EDT [facility] SPECIALTY CARE COORDINATION TELEPHONE ENCOUNTER Contacted pt regarding a referral from Dr Martinez's office. LVM and call back number. documented in this encounterMet[facility]08-03-2023 Miscellaneous Notes* Telephone Encounter - Yancy Lopez - 04/07/2023 1:15 PM EDT Referral rec'd documented in this encounterMetrohealth [facility]06-17-2023 Evaluation + Plan note Extracted [...] Views Right XR Wrist 3+ Views Right [facility]06-17-2023 Hospital Discharge instructions Patient Education [...] are safe for you. General instructions Take wdfp-xap-vuuegft and prescription medicines only as told by [...] provider. Document Revised: 12/29/2020 Document Reviewed: 12/29/2020 [employer] Patient Education 2022 [employer]. Follow Up Care 02/19/2023 00:51:16 With:JUDI YOUSSEF Address: [address] [place] [address]- [phone] Business (1) When:02/22/2023 Comments:Take the pain medication as prescribed as needed for pain. Please follow-up with your primary care doctor in the next 2 to 3 days for further evaluation management. Please return to the ED for any new or worsening symptoms or [facility]08-10-2022 Hospital Discharge instructions Patient Education [...] water added (diluted fruit juice). Eat bland, bqgo-pz-swjrnd foods in small amounts as you are able. These foods include bananas, applesauce, rice, lean meats, toast, and crackers. Avoid fluids that contain a lot of sugar or caffeine, such as energy drinks, sports drinks, and soda. Avoid alcohol. Avoid spicy or fatty foods. General instructions Take xxwb-yvz-uxgnvri and prescription medicines only as told by your health care provider. Drink enough fluid to keep your urine pale yellow. Wash your hands often using soap and water. If soap and water are not available, use hand washing machine loader and puller. Make sure that all people in your [...] eating and drinking to prevent dehydration. Take ymrl-khf-emazzya and prescription medicines only as told by [...] 08/22/2006 Document Revised: 12/14/2019 Document Reviewed: 01/30/2019 [employer] Patient Education 2019 [employer]. Follow Up Care 01/28/2022 13:58:23 With:Monique Marquez CNP Address: When:3 months [facility] 05-26-2022 Hospital Discharge instructions Patient [...] drinks. ?Tomatoes and foods made with tomatoes. ?[place] or spicy foods. ?Chocolate and peppermint. Do not drink alcohol. General instructions Take yhuw-sek-cwxuexf and prescription medicines only as told by [...] 11/11/2004 Document Revised: 12/18/2018 Document Reviewed: 12/18/2018 [employer] App Patient Education 2020 [employer]. Follow Up Care 01/13/2022 12:36:01 With:Monique Marquez CNP Address: When:3 months [facility] 05-09-2022 Hospital Discharge instructions Patient Education 01/11/2022 09:56:58 Endoscopy, Care After Procedure [facility] Endoscopy Care After Procedure Please read the [...] 04/05/2005 Document Re-Released: 02/13/2007 ExitCare Patient Information The [email or web address]. 01/11/2022 09:56:58 Pearce's Esophagus Pearce's Esophagus Pearce's [...] drinks. ?Tomatoes and foods made with tomatoes. ?[place] or spicy foods. ?Chocolate and peppermint. Do not drink alcohol. General instructions Take sjby-bln-hehwtwo and prescription medicines only as told by [...] 11/11/2004 Document Revised: 12/18/2018 Document Reviewed: 12/18/2018 [employer] App Patient Education [employer]. Follow Up Care 12/03/2021 15:32:26 With:Anai FORBES Address: [address] [place] [address] Business (1) When:1 to 2 weeks Comments:Call for any problems. [facility]03-30-2022 Hospital Discharge instructions Follow Up Care 12/02/2021 10:32:32 With:JHOANA MELGOZA PA-C, URL Address: [address] [place] [address] When: Unknown [facility] Evaluation + Plan note Future Appointments Appointment Date:01/11/2022 09:40:00 AM Scheduled Provider: Location:[facility] Appointment Type:Surgery FT [facility] Evaluation + Plan note Future Appointments Appointment Date:04/14/2022 03:00:00 PM Scheduled Provider:Monique Marquez CNP Location:[facility] Appointment Type:[facility] Follow Up Future Scheduled Tests Radiology* NM Gastric Emptying Study 01/28/22 [facility] Evaluation + Plan note Future Appointments Appointment Date:04/14/2022 03:00:00 PM Scheduled Provider:Monique Marquez CNP Location:[facility] Appointment Type:BAD [facility] Future Appointments Appointment Date:04/20/2022 12:00:00 PM Scheduled Provider: [facility] Type:US Abdominal/Pelvis () Appointment Date:06/02/2022 09:45:00 AM Scheduled Provider:Anai FORBES MD Location:[facility] Appointment Type:[facility] Follow Up Future Scheduled Tests Laboratory* Fecal WBC Lactoferrin 04/14/22 * Giardia lamblia, Direct Detection EIA 04/14/22 * O & P Exam, Routine 04/14/22 * Clostridium difficile by PCR 04/14/22 * Enteric Panel by PCR 04/14/22 * CBC w/ Auto Diff 04/14/22 * Comprehensive Metabolic Panel 04/14/22 Radiology* US Abdomen Complete 04/20/22 [facility] Evaluation + Plan note Future Appointments Appointment Date:06/02/2022 09:45:00 AM Scheduled Provider:Anai FORBES MD Location:[facility] Appointment Type:[facility] Follow Up Diagnostic Tests Pending * O & P Exam, Routine 04/29/22 * Giardia lamblia, Direct Detection EIA 04/29/22 [facility] noteNo assessment information available [facility] Work Phone: Evaluation noteNo InformationNocox walnut [employer] Other Evaluation note* Diagnosis Nausea- Primary Nausea alone Dysphagia, unspecified type documented in this encounter [facility] note* Diagnosis Nausea Nausea alone documented in this encounter [facility] note* Diagnosis Dysphagia, unspecified type Gastroparesis History of Pricilla fundoplication Personal history of surgery to other organs [facility] Diagnosis Gastroparesis- Primary Malnutrition of moderate degree (HCC) Malnutrition of moderate degree Gastro-esophageal reflux disease without esophagitis Esophageal reflux Overweight (BMI 25.0-29.9) Overweight Dietary counseling and surveillance Dietary surveillance and counseling documented in this encounter [facility] note* Diagnosis Gastroparesis- Primary documented in this encounter [facility] note* Diagnosis Onset Date Resolution Status Abdominal adhesions acute Dysphagia acute Small bowel obstruction acut e [facility] Work Phone: [facility]* Diagnosis Hypoglycemia- Primary Hypoglycemia, unspecified Encounter for dietary consultation [facility] Diagnosis Hypoglycemia Hypoglycemia, unspecified [facility]* Diagnosis Other dysphagia- Primary Other dysphagia documented in this encounter [facility] note* Diagnosis Ileus (HCC)- Primary Paralytic ileus Ileus (HCC) Paralytic ileus Generalized abdominal pain Abdominal pain, generalized Hypokalemia Hypopotassemia Primary hypertension Unspecified essential hypertension Gastroesophageal reflux disease with esophagitis without hemorrhage Major depressive disorder Major depressive disorder, single episode, unspecified Hypokalemia Hypopotassemia Generalized abdominal pain Abdominal pain, generalized documented in this encounter [facility] note* Diagnosis Seizure (CMS/HCC)- Primary Other convulsions History of obstructive sleep apnea Migraine without aura and without status migrainosus, not intractable (CMS/HCC) documented in this encounter [facility] HealthcareHistory and physical note Author Jennie Ayon [facility] May 11, 2024 10:16am Note Date/Time May 11, 2024 10:16am [facility] [address] [place] [address] Gastroenterology H&P Signed Patient: Constantino Cardoso MR#: [id number] : 1970 Acct:[id number] Age/Sex: 53 / F Adm Date: 4 Loc: Room: Type: [facility] Attending Dr: Jennie Ayon MD Copies to: [...] signed by Jennie Ayon MD> 05/11/24 1016 [facility] [employer] Work Phone: History general Narrative - Reported* Type Description Date Medical History mitral valve prolapse Medical History gallstones Medical History Acid reflux Medical History Hiatal Hernia Medical History headache Surgical History hysterectomy Surgical History cholecystectomy Surgical History hiatal hernia repair Hospitalization History see above Hospitalization History kindey infections hospit alized x3 [email or web address] Other Hospital course Narrative No data available for this section [facility] Hospital Discharge instructions No data available for this section [facility] Additional Instructions Follow-up with your primary care doctor Return to ED if develop worsening symptoms or [facility] Work Phone: Hospital Discharge instructions Additional Instructions If your symptoms return/worsen or you develop any further concerns or symptoms please see your doctor or return to the emergency department immediately. Please be sure to continue follow-up with the flame planer and with your scheduled EGD and further testing.[facility] Work Phone: Hospital Discharge instructions Additional [...] problems. -Follow up with PCP. -Office number [phone]. [facility] Work Phone: Progress note No data available for this section [facility] for referral (narrative)* Diagnostic Procedure Only (Routine) - Authorized Specialty Diagnoses / Procedures Referred By Issaac t Referred To Contact MOLECULAR & FUNCTIONAL IMAGING Diagnoses Nausea Procedures NM GASTRIC EMPTYING SOLID GASTRIC EMPTYING STUDY Marques Bradley MD [address] [place] [address] Molecular & Functional Imaging [address] [place] [address] Referral ID Status Reason Start Date Expiration Date Visits Requested Visits Authorized [id number] Authorized Auto-Generat ed Referral 05/16/2023 06/14/2024 1 1 * Outpatient Procedure (Routine) - Authorized Specialty Diagnoses / Procedures [facility] Referred To Contact [facility] Diagnoses Nausea Procedures MANOMETRY ESOPHAGEAL ESOPHAGEAL MOTILITY STUDY W/INTERP&RPT Marques Bradley MD [address] [place] [address] [facility] [address] [place] [address] Referral ID Status Reason Start Date Expiration Date Visits Requested Visits Authorized [id number] Authorized Auto-Generat ed Referral 05/16/2023 05/16/2024 1 1 [facility] for referral (narrative)* Outpatient Procedure (Routine) - Closed Specialty Diagnoses / Procedures Referred By [facility] Referred To Contact [facility] Diagnoses Dysphagia, unspecified type Gastroparesis History of Pricilla fundoplication Procedures EGD - THERAPEUTIC, EUS, OR TUBE INTERVENTIONS ESOPHAGOGASTRODUODENOSCOPY TRANSORAL DIAGNOSTIC STOMACH SURGERY PROCEDURE UNLISTED Marques Bradley MD [address] [place] [address] [facility] [address] [place] [address] Referral ID Status Reason Start Date Expiration Date V isits Requested Visits Authorized [id number] Closed Auto-Generate d Referral 05/27/2023 05/27/2024 1 1 [facility] for referral (narrative)* Outpatient Procedure (Routine) - Authorized Specialty Diagnoses / Procedures Referred By Contac t Referred To Contact [facility] Diagnoses Gastroparesis Procedures EGD - THERAPEUTIC, EUS, OR TUBE INTERVENTIONS ESOPHAGOGASTRODUODENOSC OPY TRANSORAL DIAGNOSTIC STOMACH SURGERY PROCEDURE UNLISTED Marques Bradley MD [address] [place] [address] [address] Referral ID Status Reason Start Date Expiration Date Visits Requested Visits Authorized [id number] Authorized Auto-Generat ed Referral 07/29/2024 1 1 [facility] for visit Narrative* Outpatient Procedure (Routine) - Closed Specialty Diagnoses / Procedures Referred By Contac t Referred To Contact [facility] Diagnoses Dysphagia, unspecified type Gastroparesis History of Pricilla fundoplication Procedures EGD - THERAPEUTIC, EUS, OR TUBE INTERVENTIONS ESOPHAGOGASTRODUODENOSCOPY TRANSORAL DIAGNOSTIC STOMACH SURGERY PROCEDURE UNLISTED Marques Bradley MD [address] [place] [address] [address] Referral ID Status Reason Start Date Expiration Date V isits Requested Visits Authorized [id number] Closed Auto-Generate d Referral 05/27/2023 05/27/2024 1 1 [facility] Summary Purpose Family History No [...] 3:16 PM Hospital Course Note MR#: [id number] I [facility] Pt. Name: Constantino Cardoso Admitted: 08/13/2019 [...] a 49-year-old female, who was transferred to [facility] with acute abdominal pain. The pain has started on Tuesday while at work. 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 The pain feels similar to when she was here in April during her stay. During that time, she was told there was nothing left for Dr. Mortensen to do and she has been following up with GI specialist in [place]. She is actually due to have an [...] dysphagia Procedures FL MODIFIED BARIUM SWALLOW W Justin Booth MD [address] [place] [address] Referral ID Status Reason Start Date Expiration Date Visits Re quested Visits Authorized [id number] Open 08/17/2024 08/17/2025 1 1 Additional Source Comments INFORMATION SOURCE (unrecogn ized section and content) DATE CREATED AUTHOR 06/03/2020 [facility] DATE CREATED AUTHOR AUTHOR'S ORGANIZ ATION 01/17/2023 [facility] DATE CREATED AUTHOR AUTHOR'S ORGANIZ ATION 04/02/2023 [facility] DATE CREATED AUTHOR AUTHOR'S ORGANIZ ATION 08/26/2023 [facility] DATE CREATED AUTHOR AUTHOR'S ORGANIZ ATION 12/03/2023 [facility] DATE CREATED AUTHOR AUTHOR'S ORGANIZ ATION 02/17/[address] [facility] DATE CREATED AUTHOR AUTHOR'S ORGANIZ ATION 02/19/2024 [facility] DATE CREATED AUTHOR AUTHOR'S ORGANIZ ATION 06/21/2024 [facility] DATE CREATED AUTHOR AUTHOR'S ORGANIZ ATION 08/19/2024 [facility] DATE CREATED AUTHOR AUTHOR'S ORGANIZ ATION 09/05/2024 [facility] DATE CREATED AUTHOR AUTHOR'S ORGANIZ ATION 09/20/2024 [facility] DATE CREATED AUTHOR AUTHOR'S ORGANIZ ATION 10/21/2024 [facility] DATE CREATED AUTHOR AUTHOR'S ORGANIZ ATION 10/22/2024 [facility] DATE CREATED AUTHOR AUTHOR'S ORGANIZ ATION 10/29/2024 [facility] DATE CREATED AUTHOR AUTHOR'S ORGANIZ ATION 11/17/2024 [facility] DATE CREATED AUTHOR AUTHOR'S ORGANIZ ATION 11/26/2024 [facility] DATE CREATED AUTHOR AUTHOR'S ORGANIZ ATION 12/14/2024 [facility] Care Team (unrecognized sect ion and content) Team Status: Active Member Role Status Dates Judi Youssef NP-C Primary Care Provider Active Team Status: Active Member Role Status Dates MARLEY StovallC Primary Care Provider Active Start: April 13, [...] Active Member Role Status Dates Judi Youssef SLICE CUTTING MACHINE OPERATOR-C Primary Care Provider Active Start: May 11, [...] Active Pete Thakkar DO Emergency Provider Active Marketing Services Rep Relationship Specialty Start Date End Date Joel Alejandra PCP - General Family Medicine 04/26/18 Rafa Rangel [address] [place] [phone] Referring General Surgery 04/26/18 Marketing Services Rep Relationship Specialty Start Date End Date Joel Alejandra PCP - General Family Medicine 04/26/18 Rafa Rangel [address] [place] [phone] Referring General Surgery 04/26/18 Marketing Services Rep Relationship Specialty Start Date End Date DomenicoJoel blanco PCP - General Family Medicine 04/26/18 Rafa Rangel [address] [place] [phone] Referring General Surgery 04/26/18 Marketing Services Rep Relationship Specialty Start Date End Date Ny Joel Onel PCP - General Family Medicine 04/26/18 Rafa Rangel [address] [place], [place] [address] [place] [phone] Referring General Surgery 04/26/18 Marketing Services Rep Relationship Specialty Start Date End Date Joel Alejandra PCP - General Family Medicine 04/26/18 Rafa Rangel [address] [place] [phone] Referring General Surgery 04/26/18 Marketing Services Rep Relationship Specialty Start Date End Date Joel Alejandra PCP - General Family Medicine 04/26/18 Rafa Rangel [address] [place] [phone] Referring General Surgery 04/26/18 Marketing Services Rep Relationship Specialty Start Date End Date Joel Alejandra PCP - General Family Medicine 04/26/18 Rafa Rangel [address] [facility] [address] [place] [address] Referring General Surgery 04/26/18 Marketing Services Rep Relationship Specialty Start Date End Date DomenicoJoel blanco Onel PCP - General Family Medicine 04/26/18 Rafa Rangel [address] [place] [address] [address] [place] [phone] Referring General Surgery 04/26/18 Marketing Services Rep Relationship Specialty Start Date End Date Joel Alejandra PCP - General Family Medicine 04/26/18 Rafa Rangel [address] [place] [address] [address] [place] [address] Referring General Surgery 04/26/18 Marketing Services Rep Relationship Specialty Start Date End Date Joel Alejandra PCP - General Family Medicine 04/26/18 Rafa Rangel [address] [facility] [address] [place] [address] Referring General Surgery 04/26/18 Marketing Services Rep Relationship Specialty Start Date End Date Domenicobella Joel Onel PCP - General Family Medicine 04/26/18 Rafa Rangel [address] [place] [phone] Referring General Surgery 04/26/18 Marketing Services Rep Relationship Specialty Start Date End Date Unallocated, Miracle Jesus MD [facility] [address] PCP - General 04/25/23 Judi Youssef MD [address] [place] [address] Referring Physician Family Medicine 04/25/23 Marketing Services Rep Relationship Specialty Start Date End Date Unallocated, Miracle Jesus MD [facility] [address] PCP - General 04/25/23 Judi Youssef MD [address] [place] [address] Referring Physician Family Medicine 04/25/23 Marketing Services Rep Relationship Specialty Start Date End Date Unallocated, Miracle Jesus MD [address] [place] [id number] PCP - General 04/25/23 Judi Youssef MD [address] [place] [id number] Referring Physician Family Medicine 04/25/23 Marketing Services Rep Relationship Specialty Start Date End Date Unallocated, Miracle Jesus MD [address] [place] [id number] PCP - General 04/25/23 Judi Youssef MD [address] [place] [id number] Referring Physician Family Medicine 04/25/23 Marketing Services Rep Relationship Specialty Start Date End Date No, Pcp PCP - General 08/17/24 Marketing Services Rep Relationship Specialty Start Date End Date Judi Youssef S, [employer] - ASSEMBLED WOOD PRODUCTS REPAIRER [address] [facility] [place] [address] PCP - General 08/29/24 Marketing Services Rep Relationship Specialty Start Date End Date Unallocated, Noms MD Edin [address] [place] [address] PCP - General 04/25/23 Judi Youssef MD [address] [place] [address] Referring Physician Family Medicine 04/25/23 Nikki Ayoub PA [address] [place] [address] Physician Fitter / Welder Neurology 11/26/24 Goals (unrecognized section and content) Goals may be documented in a n alternate section REASON FOR VISIT (unrecogniz ed section and content) Reason Comments Appointment Reason Comments Sports Team Manager - Other Reason Onset Date Comments Procedure 05/25/2023 Manometry Esopha geal Specialty Diagnoses / Procedures Referred By Eileen Referred To Contact [facility] Diagnoses Nausea Procedures MANOMETRY ESOPHAGEAL ESOPHAGEAL MOTILITY STUDY W/INTERP&RPT Marques Bradley MD [address] [place] [address] [facility] [address] [place] [address] Referral ID Status Reason Start Date Expiration Date V isits Requested Visits Authorized [id number] Closed Auto-Generate d Referral 05/16/2023 05/16/2024 1 1 Reason Comments Results Reason Comments Patient Education Assessment Reason Comments Hypoglycemia NEW Reason Comments Hypoglycemia Specialty Diagnoses / Procedures Referred By Eileen t Referred To Contact Diagnoses Other dysphagia Other dysphagia [R13.19] Procedures VA EGD TRANSORAL BIOPSY SINGLE/MULTIPLE VA ESOPHAGOGASTRODUODENOSCOPY TRANSORAL DIAGNOSTIC VA EGD BALLOON DILATION ESOPHAGUS <30 MM DIAM ESOPHAGOGASTRODUODENOSCOPY BIOPSY Justin Lucero MD [address] [facility] [address] [place] [address] [facility] [address] [place] [address] Referral ID Status Reason Start Date Expiration Date Visits Re quested Visits Authorized [id number] 1 1 Reason Comments Abdominal Pain Specialty Diagnoses / Procedures Referred By Contac t Referred To Contact Diagnoses Ileus (HCC) Intestinal obstruction (HCC) Obdulio Justice MD [address] [address] [facility] [address] [place] [address] Referral ID Status Reason Start Date Expiration Date Visits Re quested Visits Authorized [id number] 1 1 Reason Comments Hospital Follow-up Source Comments (unrecognize d section and content) In the event this informatio n is protected by the Federal Confidentiality of Alcohol and Drug Abuse Patient Records regulations: The Federal rules restrict any use of the information to criminally investigate or prosecute any alcohol or drug abuse patient.[facility] the event this information is protected by the Federal Confidentiality of Alcohol and Drug Abuse Patient Records regulations: The Federal rules restrict any use of the information to criminally investigate or prosecute any alcohol or drug abuse patient.[facility] the event this information is protected by the Federal Confidentiality of Alcohol and Drug Abuse Patient Records regulations: The Federal rules restrict any use of the information to criminally investigate or prosecute any alcohol or drug abuse patient.[facility] the event this information is protected by the Federal Confidentiality of Alcohol and Drug Abuse Patient Records regulations: The Federal rules restrict any use of the information to criminally investigate or prosecute any alcohol or drug abuse patient.[facility] the event this information is protected by the Federal Confidentiality of Alcohol and Drug Abuse Patient Records regulations: The Federal rules restrict any use of the information to criminally investigate or prosecute any alcohol or drug abuse patient.[facility] the event this information is protected by the Federal Confidentiality of Alcohol and Drug Abuse Patient Records regulations: The Federal rules restrict any use of the information to criminally investigate or prosecute any alcohol or drug abuse patient.[facility] the event this information is protected by the Federal Confidentiality of Alcohol and Drug Abuse Patient Records regulations: The Federal rules restrict any use of the information to criminally investigate or prosecute any alcohol or drug abuse patient.[facility] Center[facility] the event this information is protected by the Federal Confidentiality of Alcohol and Drug Abuse Patient Records regulations: The Federal rules restrict any use of the information to criminally investigate or prosecute any alcohol or drug abuse patient.[facility] Center[facility] the event this information is protected by the Federal Confidentiality of Alcohol and Drug Abuse Patient Records regulations: The Federal rules restrict any use of the information to criminally investigate or prosecute any alcohol or drug abuse patient.[facility] Center[facility] the event this information is protected by the Federal Confidentiality of Alcohol and Drug Abuse Patient Records regulations: The Federal rules restrict any use of the information to criminally investigate or prosecute any alcohol or drug abuse patient.[facility] Center[facility] the event this information is protected by the Federal Confidentiality of Alcohol and Drug Abuse Patient Records regulations: The Federal rules restrict any use of the information to criminally investigate or prosecute any alcohol or drug abuse patient.[facility] CenterIn the event this information is protected by the Federal Confidentiality of Alcohol and Drug Abuse Patient Records regulations: The Federal rules restrict any use of the information to criminally investigate or prosecute any alcohol or drug abuse patient.[facility] Scheduled Active and Recently Administ [...] Change - Provider: Chung Renee APRN - GLASS BLOWER) PRN Medication Order 08/15/2024 08/16/2024 08/17/2024 0.9 [...] 0942 (Given - Provider: Jermain Renee RN) potassium chloride 10 mEq/100 mL IVPB (Peripheral [...] not administer for more than 5 days. 2319 (Given - Provider: Brown Richard RN) 0740 (Given - Provider: Enedina Madden RN)1418 (Given - Provider: Enedina Madden RN) labetalol [...] Midline or Central Line = 20 mL/lumen 1304 (Given - Provider: Brown Richard RN) Linked [...] BE BASED ON THE PRIMARY CLINICAL RECORDS. [facility]. provides no warranty or guarantee of the accuracy or completeness of information in this document.
--- NOTE | 2024-12-18 08:24 | ED.GENADUL1 ---
HPI HPI - General Adult General Chief complaint: Neck Pain/Injury Stated complaint: SOB TROUBLES SWALLOWING L RIB PAIN Time Seen by Provider: 12/18/24 08:06 Source: patient Mode of arrival: walk-in Limitations: no limitations History of Present Illness HPI narrative: This 54-year-old female patient presents with a chief complaint of difficulty swallowing since yesterday. She states that she has had to have an esophageal stricture dilated last year by her lead performance support analyst in [place]. I reviewed that record of her on [facility] and she underwent EGD on 17 August last [address] Charles and he did not report any esophageal stricture. The EGD was called normal. She does have a history of gastric peroral endoscopic myotomy for gastroparesis at the [facility] in August 2023. Patient also complains of left-sided pain in the last couple days she does not recall any injury and states she also has a history of kidney stones. The pain is on the left side of the chest laterally and also left flank. Related Data Home Medications ?Medication ?Instructions ?Recorded ?Confirmed dicyclomine 20 mg tablet 20 mg PO QID 11/27/23 12/18/24 pantoprazole 40 mg tablet,delayed 40 mg PO DAILY 12/15/23 12/18/24 release cholecalciferol (vitamin D3) 50 50 mcg PO DAILY 04/13/24 12/18/24 mcg (2,000 unit) capsule lisinopril 10 mg tablet 10 mg PO DAILY 04/13/24 12/18/24 metoprolol succinate 50 mg 50 mg PO DAILY 04/13/24 12/18/24 tablet,extended release 24 hr sertraline 50 mg tablet 50 mg PO DAILY 04/13/24 12/18/24 acarbose 25 mg tablet mg 12/18/24 aspirin 81 mg tablet,delayed mg 12/18/24 release cyanocobalamin (vitamin B-12) mcg 12/18/24 1,000 mcg tablet levetiracetam 750 mg tablet mg PO 12/18/24 multivitamin with folic acid 400 tab PO 12/18/24 mcg tablet (Daily-Reena (with folic acid)) promethazine 25 mg tablet mg 12/18/24 Previous Rx's ?Medication ?Instructions ?Recorded ondansetron 4 mg disintegrating 4 mg PO Q8H PRN nausea and 04/13/24 tablet vomiting 3 days #10 tabs ibuprofen 800 mg tablet 800 mg PO Q8H PRN pain #20 tabs 06/24/24 ondansetron 4 mg disintegrating 4 mg PO Q6H PRN nausea and 09/28/24 tablet vomiting #12 tabs ketorolac 10 mg tablet 10 mg PO TID PRN pain 4 days #12 12/18/24 tabs Allergies Allergy/AdvReac Type Severity Reaction Status Date / Time cyclobenzaprine (From Allergy Severe Anaphylaxis Verified 12/18/24 08:10 Flexeril) Penicillins Allergy Intermediate Hives Verified 12/18/24 08:10 Opioid HPI Opioid Management Most Recent Opioid Data: Last Pain Scale 6 12/18/24 08:46 12/18/24 Last MAR Pain Assessment 12/18/24 08:40 Last ORT Total Score 0 11/27/23 09:50 11/27/23 Last ORT Risk Category Low Risk 11/27/23 09:50 11/27/23 Ur Phencyclidine Scrn Negative (NEGATIVE) 12/18/24 08:34 12/18/24 [facility] Medical History (Updated 12/18/24 @ 11:45 by Nicanor Perez MD) Partial obstruction of small intestine ?K56.600 - Partial intestinal obstruction, unspecified as to cause (ICD-10) Constipation ?K59.00 - Constipation, unspecified (ICD-10) Ileus ?K56.7 - Ileus, unspecified (ICD-10) Nausea and vomiting ?R11.2 - Nausea with vomiting, unspecified (ICD-10) GERD (gastroesophageal reflux disease) ?K21.9 - Gastro-esophageal reflux disease without esophagitis (ICD-10) Elevated troponin ?R77.8 - Other specified abnormalities of plasma proteins (ICD-10) Chronic upper abdominal pain ?R10.10 - Upper abdominal pain, unspecified (ICD-10) ?G89.29 - Other chronic pain (ICD-10) Epigastric abdominal pain ?R10.13 - Epigastric pain (ICD-10) Abdominal pain, chronic, generalized ?R10.84 - Generalized abdominal pain (ICD-10) ?G89.29 - Other chronic pain (ICD-10) Headache, migraine ?G43.909 - Migraine, unspecified, not intractable, without status migrainosus (ICD-10) Gastroparesis ?K31.84 - Gastroparesis (ICD-10) Mitral valve disorder ?I05.9 - Rheumatic mitral valve disease, unspecified (ICD-10) Surgical History 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 ?K95.89 - Other complications of other bariatric procedure (ICD-10) ?K22.4 - Dyskinesia of esophagus (ICD-10) History of hernia surgery ?Z98.890 - Other specified postprocedural states (ICD-10) ?Z87.19 - Personal history of other diseases of the digestive system (ICD-10) FH: cholecystectomy ?Z83.79 - Family history of other diseases of the digestive system (ICD-10) H/O: hysterectomy ?Z90.710 - Acquired absence of both cervix and uterus (ICD-10) Family History Father Family history of myocardial infarction Family history of cancer Grandmother Family history of diabetes mellitus Family history of stroke Sister Family history of hypertension Social History Within the past year, how often did you have a drink containing alcohol: never Within the past year, how many standard drinks containing alcohol did you have on a typical day: 1 or 2 Within the past year, how often did you have six or more drinks on one occasion: never Total score: 0 Score interpretation: A score less than 3 is consistent with normal alcohol consumption. Smoking status: Former smoker Second hand tobacco smoke exposure: No Non-prescribed substance use: denies use Previous occupational history: works [employer] Known occupational exposures/hazards: No Highest level of school completed/degree received: high school graduate Do you want help with school or training: No Are you now , , , , never or living with a partner: In a typical week, how many times do you talk on the telephone with family, friends, or neighbors: 3 or more times per week How often do you get together with friends or relatives: 3 or more times per week How often do you attend scientologist or muslim services: never Do you belong to any clubs or organizations such as scientologist groups unions, fraternal or athletic groups, or school groups: no Total score: 2 Score interpretation: A score of greater than or equal to 2 indicates the lowest level of social isolation. Little interest or pleasure in doing things: not at all Feeling down, depressed, or hopeless: not at all Feel stressed/tense/nervous/anxious/difficulty sleeping: not at all Due to disability, difficulty making decisions: No Do you think of yourself as: straight/heterosexual Gender Identity: female Exam Narrative Exam Narrative: Patient is slightly bradycardic but not symptomatic from it. The rest of her vitals are stable. HEENT exam is normal to inspection. Neck is supple. Lung sounds are clear to auscultation bilaterally. Heart has regular rate and rhythm. She has tenderness to palpation over the left lateral chest wall and the left flank. There is no CVA tenderness. Extremities warm and dry. She does not have leg swelling or calf tenderness. Speech and mentation are clear and intact. There is no facial asymmetry. She moves all extremities actively. Constitutional Vital Signs, click to edit/add: Last Vital Signs Temp 98.6 F 12/18/24 08:07 Pulse 54 L 12/18/24 10:25 Resp 18 12/18/24 08:07 BP 158/81 H 12/18/24 10:25 Pulse Ox 99 12/18/24 10:25 O2 Del Method Room Air 12/18/24 08:07 Course Vital Signs Vital signs: Vital Signs Temperature 98.6 F 12/18/24 08:07 Pulse Rate 52 L 12/18/24 08:07 Respiratory Rate 18 12/18/24 08:07 Blood Pressure 148/72 H 12/18/24 08:07 Pulse Oximetry 100 12/18/24 08:07 Oxygen Delivery Method Room Air 12/18/24 08:07 Temperature 98.6 F 12/18/24 08:07 Pulse Rate 54 L 12/18/24 10:25 Respiratory Rate 18 12/18/24 08:07 Blood Pressure 158/81 H 12/18/24 10:25 Pulse Oximetry 99 12/18/24 10:25 Oxygen Delivery Method Room Air 12/18/24 08:07 Medical Decision Making MDM Narrative Medical decision making narrative: Patient presents to the ED complaining of dysphagia however in review of her previous records I see that she has never been diagnosed with esophageal stricture which she states she has had. She has a history of hiatal hernia repair. The pain in the left side is easily reproducible with local pressure and is felt to be of musculoskeletal etiology. CT scan was obtained of the chest and abdomen without contrast and there is trace pleural fluid on the left side and trace pericardial fluid the significance of which is unknown certain at this time. I have ordered rheumatoid factor and PEPPER studies on the patient which will not be available today. Patient was treated with IV Toradol for her pain and seems quite comfortable. My plan is to place her on Toradol and refer her to her PCP for follow-up and also referred to cardiology for further follow-up of her trace pericardial fluid. She may return anytime for worsening symptoms Lab Data Labs: Lab Results 12/18/24 12/18/24 Range/Units 08:34 08:35 WBC 5.7 (4.0-11.0) 10^3/uL RBC 4.06 L (4.20-5.40) 10^6/uL Hgb 12.1 (12.0-16.0) g/dL Hct 36.9 (36.0-48.0) % MCV 90.9 (81.0-99.0) fL MCH 29.8 (26.7-34.0) pg MCHC 32.8 (29.9-35.2) g/dL RDW 13.1 (11.0-15.0) % Plt Count 328 (150-450) 10^3/uL MPV 9.4 L (9.5-13.5) fL Neut % (Auto) 47.0 (43.0-75.0) % Lymph % (Auto) 39.6 (20.5-60.0) % [place] % (Auto) 8.0 (1.7-12.0) % Eos % (Auto) 4.9 (0.9-7.0) % Baso % (Auto) 0.5 (0.2-2.0) % Neut # (Auto) 2.7 (1.4-6.5) 10^3/uL Lymph # (Auto) 2.2 (1.2-3.8) 10^3/uL [place] # (Auto) 0.5 (0.3-0.8) 10^3/uL Eos # (Auto) 0.3 (0.0-0.7) 10^3/uL Baso # (Auto) 0.0 (0.0-0.1) 10^3/uL Abs Immat Gran (auto) 0.00 (0.00-0.03) 10^3/uL Imm/Tot Granulo (auto) 0.0 (0.0-0.5) % Sodium 140 (136-145) mmol/L Potassium 3.7 (3.5-5.1) mmol/L Chloride 107 (98-107) mmol/L Carbon Dioxide 28.2 (21.0-32.0) mmol/L Anion Gap 8.5 BUN 14.0 (7.0-18.0) mg/dL Creatinine 0.76 (0.55-1.02) mg/dL Est GFR ( Amer) >60 (>=60 mL/min/1.73m^2) Est GFR (Non-Af Amer) >60 (>=60 mL/min/1.73m^2) BUN/Creatinine Ratio 18.4 Glucose 104 (74-106) mg/dL Calcium 9.0 (8.5-10.1) mg/dL Total Bilirubin 0.4 (0.2-1.0) mg/dL Direct Bilirubin 0.1 (0.0-0.2) mg/dL AST 16 (15-37) U/L ALT 17 (14-59) U/L Alkaline Phosphatase 145 H (46-116) U/L Total Protein 6.6 (6.4-8.2) g/dL Albumin 3.4 (3.4-5.0) g/dL Globulin 3.2 g/dL Albumin/Globulin Ratio 1.1 Lipase 26.0 (16.0-77.0) U/L Urine Color Lt. yellow (YELLOW) Urine Clarity Clear (CLEAR) Urine pH 6.0 (5.0-9.0) Ur Specific [place] 1.020 (1.005-1.025) Urine Protein Negative (NEG/TRACE) mg/dL Urine Glucose (UA) Negative (NEGATIVE) mg/dL Urine Ketones Negative (NEGATIVE) mg/dL Urine Occult Blood Trace-i (NEGATIVE) Urine Nitrite Negative (NEGATIVE) Urine Bilirubin Negative (NEGATIVE) Urine Urobilinogen 0.2 (0.2-1.0) EU/dL Ur Leukocyte Esterase Moderate A (NEGATIVE) Urine RBC 2-5 A (0-2) #/HPF Urine WBC 5-10 A (NONE SEEN) #/HPF Ur Squamous Epith Cells Few A (NONE/RARE) #/LPF Urine Crystals None seen (None Seen) #/HPF Urine Bacteria Trace A (NONE SEEN) #/HPF Urine Casts None seen (NONE SEEN) #/LPF Urine Mucus Trace A (NONE SEEN) Ur Culture Indicated? Yes-[facility] [place] [place] Urine Opiates Screen Negative (NEGATIVE) Ur Buprenorphine Scrn Negative (NEGATIVE) Ur Oxycodone Screen Negative (NEGATIVE) Urine Methadone Screen Negative (NEGATIVE) Ur Barbiturates Screen Negative (NEGATIVE) U Tricyclic Antidepress Negative (NEGATIVE) Ur Phencyclidine Scrn Negative (NEGATIVE) Ur Amphetamines Screen Negative (NEGATIVE) U Methamphetamines Scrn Negative (NEGATIVE) U Benzodiazepines Scrn Negative (NEGATIVE) Urine Cocaine Screen Negative (NEGATIVE) U Cannabinoids Screen Negative (NEGATIVE) Discharge Plan Discharge Chief Complaint: Neck Pain/Injury Clinical Impression: Pleural effusion on left, Pericardial effusion, Musculoskeletal pain Dysphagia Qualifiers: Dysphagia type: unspecified Qualified Code(s): R13.10 - Dysphagia, unspecified Patient Disposition: Home, Self-Care Condition: Good Mode of Transportation: Private Vehicle Prescriptions / Home Meds: New ketorolac 10 mg tablet 10 mg PO TID PRN (Reason: pain) 4 Days Qty: 12 0RF No Action pantoprazole 40 mg tablet,delayed release (DR/EC) 40 mg PO DAILY lisinopril 10 mg tablet 10 mg PO DAILY metoprolol succinate 50 mg tablet extended release 24 hr 50 mg PO DAILY sertraline 50 mg tablet 50 mg PO DAILY cholecalciferol (vitamin D3) 50 mcg (2,000 unit) capsule 50 mcg PO DAILY ondansetron 4 mg tablet,disintegrating 4 mg PO Q8H PRN (Reason: nausea and vomiting) 3 Days Qty: 10 0RF ondansetron 4 mg tablet,disintegrating 4 mg PO Q6H PRN (Reason: nausea and vomiting) Qty: 12 0RF cyanocobalamin (vitamin B-12) 1,000 mcg tablet aspirin 81 mg tablet,delayed release (DR/EC) promethazine 25 mg tablet levetiracetam 750 mg tablet PO acarbose 25 mg tablet multivitamin with folic acid [Daily-Reena (with folic acid)] 400 mcg tablet PO dicyclomine 20 mg tablet 20 mg PO QID ibuprofen 800 mg tablet 800 mg PO Q8H PRN (Reason: pain) Qty: 20 0RF Print Language: Sierra Leonean Instructions: Pleural Effusion (DC), Pericardial Effusion (ED), Musculoskeletal Pain (ED) Additional Instructions: Follow-up with your PCP for further management and follow-up with supervisor cooler service for further workup of the fluid around your heart. Follow-up with your lead performance support analyst. Do not take ibuprofen while taking Toradol. Return for worsening symptoms. Referrals: RUBI CAGLE [Physician] - As soon as possible STEPHANIE YOUSSEF [Primary Care Provider] - As soon as possible
[2024-12-18] MEDS: KETOROLAC TROMETHAMINE 30 MG/ML VIAL 15 MG IVP (08:40)
[2024-12-18] MEDS: 0.9 % SODIUM CHLORIDE 1,000 ML 125 ML IV (08:41)
[2024-12-18 08:51] LABS: Basophils Percent Auto 0.5 % (0.2-2.0); Eosinophils Absolute Auto 0.3 10^3/uL (0.0-0.7); Eosinophils Percent Auto 4.9 % (0.9-7.0); Hematocrit 36.9 % (36.0-48.0); Hemoglobin 12.1 g/dL (12.0-16.0); Lymphocytes Absolute Auto 2.2 10^3/uL (1.2-3.8); Lymphocytes Percent Auto 39.6 % (20.5-60.0); Mean Corpuscular HGB Conc 32.8 g/dL (29.9-35.2); Mean Corpuscular Hemoglobin 29.8 pg (26.7-34.0); Mean Corpuscular Volume 90.9 fL (81.0-99.0); Mean Platelet Volume 9.4 fL (9.5-13.5); Monocytes Absolute Auto 0.5 10^3/uL (0.3-0.8); Neutrophils Absolute Auto 2.7 10^3/uL (1.4-6.5); Platelet Count 328 10^3/uL (150-450); Red Blood Count 4.06 10^6/uL (4.20-5.40); Red Cell Distribution Width 13.1 % (11.0-15.0); White Blood Count 5.7 10^3/uL (4.0-11.0)
[2024-12-18 08:52] LABS: Bilirubin Urine NEGATIVE (NEGATIVE); Blood Urine TRACE-I (NEGATIVE); Clarity Urine CLEAR (CLEAR); Color Urine LT. YELLOW (YELLOW); Glucose Urine UA NEGATIVE (NEGATIVE); Ketones Urine NEGATIVE (NEGATIVE); Leukocyte Esterase Urine MODERATE (NEGATIVE); Nitrite Urine NEGATIVE (NEGATIVE); Protein Urine NEGATIVE (NEG/TRACE); Urobilinogen Urine 0.2 EU/dL (0.2-1.0)
[2024-12-18 08:59] LABS: Urine Microscopic Indicated YES
[2024-12-18 09:05] LABS: Amphetamine Screen Urine NEGATIVE (NEGATIVE); Barbiturates Screen Urine NEGATIVE (NEGATIVE); Benzodiazepines Screen Urine NEGATIVE (NEGATIVE); Buprenorphine Screen Urine NEGATIVE (NEGATIVE); Cannabinoid Screen Urine NEGATIVE (NEGATIVE); Cocaine Screen Urine NEGATIVE (NEGATIVE); Methadone Screen Urine NEGATIVE (NEGATIVE); Methamphetamines Screen Urine NEGATIVE (NEGATIVE); Opiate Screen Urine NEGATIVE (NEGATIVE); Oxycodone Screen Urine NEGATIVE (NEGATIVE); Phencyclidine Screen Urine NEGATIVE (NEGATIVE); Tricyclic Antidepressant Urine NEGATIVE (NEGATIVE)
[2024-12-18 09:07] LABS: Bacteria Urine TRACE #/HPF (NONE SEEN); Cast Seen? NONE SEEN #/LPF (NONE SEEN); Crystals Seen? None Seen #/HPF (None Seen); Mucus Urine TRACE (NONE SEEN); Squamous Epithelial Cell Urine FEW #/LPF (NONE/RARE)
[2024-12-18 09:08] LABS: Alanine Aminotransferase 17 U/L (14-59); Albumin Globulin Ratio 1.1; Albumin Level 3.4 g/dL (3.4-5.0); Alkaline Phosphatase 145 U/L (46-116); Anion Gap 8.5; Aspartate Amino Transferase 16 U/L (15-37); BUN Creatinine Ratio 18.4; Bilirubin Direct 0.1 mg/dL (0.0-0.2); Bilirubin Total 0.4 mg/dL (0.2-1.0); Carbon Dioxide 28.2 mmol/L (21.0-32.0); Chloride 107 mmol/L (98-107); Estimated GFR (African America >60 (>=60 mL/min/1.73m^2); Estimated GFR (Non-African Ame >60 (>=60 mL/min/1.73m^2); Globulin 3.2 g/dL; Glucose 104 mg/dL (74-106); Potassium 3.7 mmol/L (3.5-5.1); Sodium 140 mmol/L (136-145); Total Protein 6.6 g/dL (6.4-8.2)
[2024-12-18 09:08] LABS: Urine Culture Indicated YES-FRMC
--- NOTE | 2024-12-18 09:39 | CT_ITS ---
The [address] [address] Patient Name: CONSTANTINO CARDOSO MRN: [id number] date: 1970 Sex: F Assigned Patient Location: ER Current Patient Location: ER Accession/Order Number: [id number] Exam Date: 12/18/2024 10:04 Report Date: 12/18/2024 10:25 At the request of: RAYMUNDO PISANO MD Procedure: CT abdomen pelvis wo con CT CHEST, ABDOMEN AND PELVIS WITHOUT CONTRAST COMPARISON: Chest 12/28/2019 and abdomen/pelvis 201912/24/2023 CLINICAL DATA: Acute onset of difficulty swallowing. Shortness of breath, left rib and flank pain. Spiral images were obtained through the chest, abdomen and pelvis without contrast. Images of the chest were reviewed using both narrow and wide window settings. This CT exam was performed using one or more following dose reduction techniques: Automated exposure control, adjustment of the mA and/or kV according to patient size, or use of iterative reconstruction technique. The heart is within normal limits for size. This is trace amount of pericardial fluid. No aortic aneurysm is identified. There are small nonpathologic mediastinal lymph nodes. A small hiatal hernia is visualized. There is minimal atelectasis or scarring, predominantly at the left base. There is no other consolidation or pneumothorax. A trace amount of pleural fluid is seen bilaterally. There is a punctate nodular density at the left lower lobe (axial image 69). This is too small to further characterize. No additional pulmonary nodularity is seen. No acute displaced rib fractures are identified. There is subtle levoscoliotic curvature and mild degenerative changes at the spine. Evaluation of the intra-abdominal organs is slightly limited by the absence of contrast. The gallbladder is surgically absent. No common duct stones are noted. No intrahepatic masses are seen. The spleen, pancreas and adrenal glands show no acute findings. No renal calculi or hydronephrosis are identified. No ureteral dilatation or stones are seen. The abdominal aorta is normal caliber. There are a few tiny lymph nodes. There is no ascites. There are postoperative changes at the GE junction and reported hiatal hernia repair. No dilated small bowel loops are seen. There is air and stool at the right colon. The left colon is not as well distended. There is subtle dextroscoliotic curvature and minor degenerative change at the spine. There are no acute compression fractures. Images through the pelvis show a tiny umbilical hernia containing fat. There are normal caliber small bowel loops. There is mild stool at the cecum. The distal colon is decompressed. No diverticular disease is noted. The appendix and uterus are surgically absent. The urinary bladder shows no abnormalities for the degree of distention. CT/CT abdomen pelvis wo con IMPRESSION: MINIMAL PERICARDIAL AND PLEURAL EFFUSION. MINOR ATELECTASIS OR SCARRING AND PUNCTATE LEFT LOWER LOBE NODULE. RECURRENT SMALL HIATAL HERNIA. NO BOWEL OR URINARY TRACT OBSTRUCTION. NO OTHER ACUTE FINDINGS. Impression dictated by: Columba Domínguez M.D.12/18/2024 10:25 AM Dictation Location: [place] [address] Electronically authenticated by: [id number] Y Date: 12/18/2024 10:25
--- NOTE | 2024-12-18 09:39 | CT_ITS ---
The [address] [address] Patient Name: CONSTANTINO CARDOSO MRN: [id number] date: 1970 Sex: F Assigned Patient Location: ER Current Patient Location: ER Accession/Order Number: [id number] Exam Date: 12/18/2024 10:04 Report Date: 12/18/2024 10:25 At the request of: RAYMUNDO PISANO MD Procedure: CT abdomen pelvis wo con CT CHEST, ABDOMEN AND PELVIS WITHOUT CONTRAST COMPARISON: Chest 12/28/2019 and abdomen/pelvis 201912/24/2023 CLINICAL DATA: Acute onset of difficulty swallowing. Shortness of breath, left rib and flank pain. Spiral images were obtained through the chest, abdomen and pelvis without contrast. Images of the chest were reviewed using both narrow and wide window settings. This CT exam was performed using one or more following dose reduction techniques: Automated exposure control, adjustment of the mA and/or kV according to patient size, or use of iterative reconstruction technique. The heart is within normal limits for size. This is trace amount of pericardial fluid. No aortic aneurysm is identified. There are small nonpathologic mediastinal lymph nodes. A small hiatal hernia is visualized. There is minimal atelectasis or scarring, predominantly at the left base. There is no other consolidation or pneumothorax. A trace amount of pleural fluid is seen bilaterally. There is a punctate nodular density at the left lower lobe (axial image 69). This is too small to further characterize. No additional pulmonary nodularity is seen. No acute displaced rib fractures are identified. There is subtle levoscoliotic curvature and mild degenerative changes at the spine. Evaluation of the intra-abdominal organs is slightly limited by the absence of contrast. The gallbladder is surgically absent. No common duct stones are noted. No intrahepatic masses are seen. The spleen, pancreas and adrenal glands show no acute findings. No renal calculi or hydronephrosis are identified. No ureteral dilatation or stones are seen. The abdominal aorta is normal caliber. There are a few tiny lymph nodes. There is no ascites. There are postoperative changes at the GE junction and reported hiatal hernia repair. No dilated small bowel loops are seen. There is air and stool at the right colon. The left colon is not as well distended. There is subtle dextroscoliotic curvature and minor degenerative change at the spine. There are no acute compression fractures. Images through the pelvis show a tiny umbilical hernia containing fat. There are normal caliber small bowel loops. There is mild stool at the cecum. The distal colon is decompressed. No diverticular disease is noted. The appendix and uterus are surgically absent. The urinary bladder shows no abnormalities for the degree of distention. CT/CT chest wo con IMPRESSION: MINIMAL PERICARDIAL AND PLEURAL EFFUSION. MINOR ATELECTASIS OR SCARRING AND PUNCTATE LEFT LOWER LOBE NODULE. RECURRENT SMALL HIATAL HERNIA. NO BOWEL OR URINARY TRACT OBSTRUCTION. NO OTHER ACUTE FINDINGS. Impression dictated by: Columba Domínguez M.D.12/18/2024 10:25 AM Dictation Location: [place] [address] Electronically authenticated by: [id number] Y Date: 12/18/2024 10:25
[2024-12-18 10:25] VITALS: BP 158/81; PULSE 54; O2SAT 99
[2024-12-19 12:08] LABS: ANA Direct Negative (Negative)
[2024-12-19 13:09] LABS: Rheumatoid Factor (RF) <10.0 IU/mL (<14.0)
== END 2024-12-18 12:31 | disposition home or self-care (01) ==
PROVIDERS: Emergency Provider Emergency Medicine; PCP Nurse Practitioner Family
DX: J90 Pleural effusion, not elsewhere classified (principal); R13.10 Dysphagia, unspecified; I31.39 Other pericardial effusion (noninflammatory); Z87.442 Personal history of urinary calculi; Z90.710 Acquired absence of both cervix and uterus; Z87.891 Personal history of nicotine dependence; K44.9 Diaphragmatic hernia without obstruction or gangrene
CPT/HCPCS: 36415; 71250; 74176; 80048; 80076; 80307; 81001; 83690; 85025; 86038; 86431; 87086; 87088; 96374; 99284; J1885

== ENCOUNTER 2025-01-07 16:02 | Outpatient (OUT) | payer BC, SELFPAY ==
[2025-01-07 16:30] LABS: Basophils Percent Auto 0.7 % (0.2-2.0); Eosinophils Absolute Auto 0.2 10^3/uL (0.0-0.7); Eosinophils Percent Auto 3.3 % (0.9-7.0); Hematocrit 37.8 % (36.0-48.0); Hemoglobin 12.3 g/dL (12.0-16.0); Immature Granulocytes Abs Auto 0.02 10^3/uL (0.00-0.03); Immature Granulocytes Pct Auto 0.4 % (0.0-0.5); Lymphocytes Absolute Auto 1.5 10^3/uL (1.2-3.8); Lymphocytes Percent Auto 27.5 % (20.5-60.0); Mean Corpuscular HGB Conc 32.5 g/dL (29.9-35.2); Mean Corpuscular Hemoglobin 29.3 pg (26.7-34.0); Mean Platelet Volume 9.4 fL (9.5-13.5); Monocytes Absolute Auto 0.4 10^3/uL (0.3-0.8); Monocytes Percent Auto 6.6 % (1.7-12.0); Neutrophils Absolute Auto 3.4 10^3/uL (1.4-6.5); Neutrophils Percent Auto 61.5 % (43.0-75.0); Platelet Count 330 10^3/uL (150-450); Red Cell Distribution Width 12.7 % (11.0-15.0); White Blood Count 5.5 10^3/uL (4.0-11.0)
[2025-01-07 16:55] LABS: Alanine Aminotransferase 23 U/L (14-59); Albumin Globulin Ratio 1.1; Albumin Level 3.4 g/dL (3.4-5.0); Alkaline Phosphatase 139 U/L (46-116); Anion Gap 10.3; Aspartate Amino Transferase 18 U/L (15-37); BUN Creatinine Ratio 17.6; Bilirubin Total 0.3 mg/dL (0.2-1.0); Calcium 9.1 mg/dL (8.5-10.1); Carbon Dioxide 29.5 mmol/L (21.0-32.0); Chloride 107 mmol/L (98-107); Estimated GFR (African America >60 (>=60 mL/min/1.73m^2); Estimated GFR (Non-African Ame >60 (>=60 mL/min/1.73m^2); Globulin 3.1 g/dL; Glucose 93 mg/dL (74-106); Potassium 3.8 mmol/L (3.5-5.1); Sodium 143 mmol/L (136-145); Total Protein 6.5 g/dL (6.4-8.2)
[2025-01-11 12:09] LABS: Levetiracetam (Keppra), S 25.1 ug/mL (10.0-40.0)
== END 2025-01-07 16:03 | disposition home or self-care (01) ==
LOC: LAB 16:03
PROVIDERS: PCP Nurse Practitioner Family; Visit Provider Physician Assistant
DX: R56.9 Unspecified convulsions (principal)
CPT/HCPCS: 36415; 80053; 80177; 85025

== ENCOUNTER 2025-01-17 09:30 | Outpatient (OUT) | payer BC, SELFPAY ==
--- NOTE | 2025-01-18 12:03 | PM.STRESS ---
Stress Test Stress Test Allergies Allergy/AdvReac Type Severity Reaction Status Date / Time cyclobenzaprine (From Allergy Severe Anaphylaxis Verified 12/18/24 08:10 Flexeril) Penicillins Allergy Intermediate Hives Verified 12/18/24 08:10 Requesting physician: Elio Heart Procedure: Treadmill EKG stress test General Information: Reason for Stress Test: [Chest pain and shortness of breath] Cardiac History and Risk Factors: [] Resting 12 - Lead Electrocardiogram: Resting twelve-lead EKG showed normal sinus rhythm, heart rate 64 bpm, normal EKG. Resting blood pressure 126/74 mmHg Patient was exercised according to standard Zachery protocol and he was able to finish 4 minutes and 4 seconds consistent with stage II achieving 4.6 METS and max heart rate of 146 bpm which represents 87% of age-predicted maximum heart rate. Peak blood pressure 148/84 mmHg. Exercise was terminated secondary to shortness of breath and achievement of target heart rate. The patient did not experience any chest, neck, jaw or arm discomfort throughout the test. Patient was monitored for a total of 7 minutes into recovery phase with heart rate back to 68 bpm and blood pressure to 140/78 mmHg EKG during exercise, at peak exercise, and during recovery phase did not show any significant T or ST changes or significant arrhythmias. Stress Test: Protocol: [Zachery] Exercise Capacity: [Reduced] Blood Pressure Response: [Normal blood pressure response] Rhythm: [No arrhythmia] ST - Response: [No ST changes] Patient Response: [Shortness of breath at peak exercise] Interpretation: Maximal stress test Reduced exercise tolerance Normal heart rate and blood pressure response to exercise This treadmill EKG stress test is negative for exercise-induced ischemic symptoms, EKG changes, or arrhythmias
== END 2025-01-17 09:31 | disposition home or self-care (01) ==
PROVIDERS: PCP Nurse Practitioner Family; Visit Provider Internal Medicine Cardiovascular Disease
DX: R07.89 Other chest pain (principal)
CPT/HCPCS: 93017

== ENCOUNTER 2025-01-19 23:15 | Emergency (ER) | payer BC, SELFPAY ==
[2025-01-19 23:27] VITALS: BP 161/90; PULSE 61; TEMP 36.8; O2SAT 96; BMI 29.4
--- OUTSIDE RECORDS SUMMARY | 2025-01-19 23:28 | XMS_ITS | CCD ---
Author Organization [facility] Care Team Providers Care Unitizer Name Role Phone LEONA MORTENSEN Admitting Unavailable LEONA MORTENSEN Attending Unavailable KEVIN HERRERA Primary Care Unavailable KEVIN HERRERA Referring Unavailable ME Procedure Practitioner Unavailab ORESTES Cruz Surgeon Unavailable [...] Unavailable FAB ., BALTAZAR Attending Unavailable MIKAEL, UJDI Primary Care Unavailable CHUNG WINN Consulting Unavailable [...] LINDA Youssef-C Judi Joan Primary Care Provider [phone] DO Conner Griffith Emergency Provider Bijan Pete [place] Emergency Provider [phone] [facility], Wallace Onel Primary Care Provider [phone] Rafa Rangel Unavailable [phone] Renny Omalley Unavailable MARUQES BRADLEY Referring Unavailable [facility], [facility] Primary Care Unavailable PAVLOCK, [facility] Primary Care Unavailable KROH, MARQUES Patel Referring Unavailable KROH, MARQUES Patel Attending Unavailable IMER CHERRY Referring Unavailable PAVLOCK, [facility] Primary Care Unavailable PAVLOCK, [facility] Primary Care Unavailable KROH, MARQUES Patel Referring Unavailable KAITLYN TORRES Attending Unavailable KROHMARQUES Referring Unavailable PAVLOCK, [facility] Primary Care Unavailable MELISSA MONTALVO Attending Unavailable KROHMARQUES Referring Unavailable PAVLOCK, [facility] Primary Care Unavailable SLYSLY Attending Unavailable KROHMARQUES Referring Unavailable PAVLOCK, [facility] Primary Care Unavailable BRENNEN SHAW Attending Unavailable Orzech, Yolanda X Attending Unavailable Orzech, Yolanda X Admitting Unavailable DONI Youssef Judi Franco Primary Care Provider MD Jennie Ayon Attending Provider Unallocated , [place] Provider Primary Care Provi christine Judi Youssef MD Unavailable No, Pcp Primary Care Provider Unavailabl e JANUSZ AIJAZ Admitting Unavailable JANUSZTHOMASJAZ Attending Unavailable NO, PCP Primary Care Unavailable Mikael CAN CARRIER - REJI, Judi S Primary Care Provide r SERGE WILD Consulting Unavailable AVASTHI, OBDLUIO Admitting Unavailable AVASTHI, OBDULIO Attending Unavailable EWELINA YOUSSEFELA S Primary Care Unavailable AVASTHI, OBDULIO Consulting Unavailable Eliezer Lorenzo Admitting Unavailable Eliezer Lorenzo Attending Unavailable Dasha Yolanda X Attending Unavailable Rush Padilla Consulting Unavailable Bradford, MD Rush Consulting Unavailable Bradford, Rush Consulting Unavailable Bradford, Rush Consulting Unavailable Bradford, Rush Consulting Unavailable Bradford, Rush Consulting Unavailable Bradford, Rush Consulting Unavailable Bradford, Rush Consulting Unavailable Bradford, Rush Consulting Unavailable Eliezer Lorenzo Admitting Unavailable Eliezer Lorenzo Attending Unavailable Randy Rush Consulting Unavailable MD Rush Padilla Unavailable Bradford, Rush Consulting Unavailable Bradford, Rush Consulting Unavailable Bradford, Rush Consulting Unavailable Bradford, Rush Consulting Unavailable Bradford, Rush Consulting Unavailable Bradford, Rush Consulting Unavailable Bradford, Rush Consulting Unavailable Nikki Zhang Unavailable Yolanda Lou Attending Unavailable Orapryl, Yolanda X Admitting Unavailable Yolanda Lou Attending Unavailable Nicanor Perez MD Attending Provider [phone] Asaad, Imad Admitting Unavailable Asaad, Imad Attending Unavailable Judi Youssef Primary Care Unavailable Nicanor Perez Admitting Unavailable Nicanor Perez Attending Unavailable Asaad, Imad Admitting Unavailable Asaad, Imad Attending Unavailable Judi Youssef Primary Care Unavailable NIKKI AYOUB Attending Unavailable NIKKI AYOUB Attending Unavailable KULWANT HODGE F Attending Unavailable COSME, AHMAD F Referring Unavailable COSME, AHMAD F Attending Unavailable EDISON KINCAID Attending Unavailable EDISON KINCAID Attending Unavailable EDISON KINCAID Attending Unavailable EDISON KINCAID Attending Unavailable EDISON KINCAID Attending Unavailable Allergies Allergy Classification Reported Allergen(s) Allergy Type Date of Onset Reaction(s) Facility (10 sources) cyclobenzaprine; Translations: [CYCLOBENZAPRINE] Drug Allergy 04-28-20 18 Swelling of Lip/Tongue/Thr oat, Swelling of Lip/Tongue/Thr oat, throat swelling [facility] (11 sources) Penicillins; Translations: [PENICILLINS] Drug allergy (disorder) 09-02-20 15 Rash [facility] (20 sources) cyclobenzaprine; Translations: [cyclobenzaprine] Drug Allergy 04-28-20 18 Pharyngeal swelling (finding), Swelling, Other (See Comments) [facility] (20 sources) Penicillin; Translations: [penicillin] Drug Allergy 04-28-20 18 Swelling (morphologic abnormality), Swelling [facility] (13 sources) penicillAMINE Drug Allergy 04-26-20 24 rash [facility] (2 sources) cyclobenzaprine Drug Allergy 03-23-20 16 [facility] (1 source) traMADol Drug Allergy [facility] (1 source) traMADol Drug Allergy [facility] (11 sources) penicillAMINE Drug Allergy 05-01-20 Rash [facility] (11 sources) Penicillins Drug Allergy 04-28-20 18 Rash, Swelling [facility] (2 sources) Penicillins Propensity to adverse reactions to drug 04-28-20 18 Other (See Comments), Rash, Swelling [facility] (1 source) cyclobenzaprine Drug Allergy 05-01-20 [facility] (1 source) penicillAMINE Drug Allergy 05-01-20 [facility] (1 source) Penicillins Drug allergy (disorder) 05-01-20 [facility] Medications Current Medications Medication Drug Class(es) Dates Sig (Normalized) Sig (Original) acarbose 25 mg oral tablet (10 sources) alpha-Glucosidase Inhibitor Start: 07-13-2024 End: 07-13-2025 take 1 tablet by mouth in the morning acarbose (Precose) 25 MG tablet Indications: Hypoglycemia Take 1 tablet (25 mg) by mouth in the morning and 1 tablet (25 mg) before bedtime. 180 tablet 3 07/13/2024 07/13/2025 Active Start: 07-13-2024 End: 07-13-2025 take 1 tablet [...] aspirin 81 mg delayed release oral tablet (6 sources) Platelet Aggregation Inhibitor, Nonsteroidal Anti-inflammatory Drug Start: 10-20-2024 take 1 tablet by mouth once daily aspirin 81 mg Oral EC Tab 81 mg = 1 tab(s), Oral, Daily, # 30 tab(s), Refills(s) 0, Pharmacy: [facility]/pharmacy #[id number], 170.2, cm, 10/19/24 17:25:00 EST, Height/Length Dosing, 90.5, kg, 10/19/24 17:25:00 EST, Weight Dosing Start Date: 10/20/24 Status: Ordered azithromycin 250 mg oral tablet (3 sources) Macrolide Antimicrobial Start: 02-16-2024 azithromycin 250 mg Tab 250 mg, Oral, As Directed, # 6 tab(s), Refills(s) 0 Start Date: 02/16/24 Status: Ordered cholecalciferol 0.05 mg oral capsule (16 sources) Vitamin D Start: 05-01-2024 take 1 capsule by mouth once daily cholecalciferol (Vitamin D-3) 50 MCG (2000 UT) capsule Take 1 capsule by mouth Daily 05/01/2024 Active estradiol 0.1 mg/ml vaginal cream (4 sources) Estrogen Start: 02-16-2024 Estrace 0.1 mg/g Cream 1 gm, Vaginal, As Directed, 42.5 gm, Refill(s) 3, Apply pea-sized amount around urethra every night x 3 weeks, then 2 times weekly for maintenance, [facility]/pharmacy #[id number], 170, cm, 02/16/24 9:10:00 EDT, Height/Length Dosing, 81.7, kg, 02/16/24 9:10:00 EDT, Weight Dosing Start Date: 02/16/24 Status: Ordered famotidine 20 mg oral tablet (17 sources) Histamine-2 Receptor Antagonist Start: 01-28-2022 End: 04-28-2022 take 1 tablet by mouth once daily at bedtime Pepcid 20 mg Tab 20 mg = 1 tab(s), Oral, Once a day (at bedtime), X 90 day(s), # 90 tab(s), Refills(s) 0, [id number] 170, cm, 01/28/22 13:40:00 EDT, Height/Length [...] daily 30 March 28, 2018 12:00am May 08, 2018 12:00am May 09, 2018 12:01am hyoscyamine sulfate 0.125 mg oral tablet (16 sources) Start: 05-01-2024 take 1 tablet by mouth every six hours as needed hyoscyamine (Anaspaz,Levsin) 0.125 MG tablet Take 1 tablet by mouth every 6 (six) hours if needed 05/01/2024 Active Start: 05-01-2024 take 1 tablet by ana th once daily Hyoscyamine Sulfate 0.125 mg tablet Active 0.125 MG PO Daily May 01, [...] (1 source) beta-Adrenergic Serena Start: 08-28-2024 levETIRAcetam 1000 mg oral tablet (10 sources) Start: 01-07-2025 take 1 tablet by mouth in the morning levETIRAcetam (Keppra) 1000 MG tablet Indications: Seizure (CMS/HCC) Take 1 tablet (1,000 mg) by mouth in the morning and 1 tablet (1,000 mg) before bedtime. 60 tablet 3 01/07/2025 Active Start: 11-26-2024 End: 01-07-2025 take 1 tablet by mouth in the morning levETIRAcetam (Keppra) 750 MG tablet Indications: Seizure (CMS/HCC) Take 1 tablet (750 mg) by mouth in the morning and 1 tablet (750 mg) before bedtime. 60 tablet 2 11/26/2024 01/07/2025 Discontinued (Reorder) Start: 10-20-2024 End: 11-26-2024 take 1 tablet by mouth twice daily Keppra 500 mg Tab 500 mg = 1 tab(s), Oral, BID, # 60 tab(s), Refills(s) 0, Pharmacy: [facility]/pharmacy #[id number], 170.2, cm, 10/19/24 17:25:00 EST, Height/Length Dosing, [...] LIDOCAINE VISC OUS 2 % solution lisinopril 20 mg oral tablet (19 sources) Angiotensin Converting Enzyme Inhibitor Start: 03-19-2024 End: 03-19-2025 take 1 tablet by mouth once daily lisinopril 20 MG tablet Take 20 mg by mouth Daily 03/19/2024 03/19/2025 Active Start: 03-19-2024 End: 03-19-2025 take 1 tablet by mouth in the morning lisinopril 10 MG tablet Take 10 mg by mouth in the morning. 03/19/2024 03/19/2025 Active 50 ml magnesium sulfate 40 mg/ml injection (1 source) Start: 08-28-2024 Multi Vitamins oral tablet (1 source) Start: 10-20-2024 Multi Vitamins oral tablet 1 tab(s), Oral, Daily, 30 tab(s), Refill(s) 0, [facility]/pharmacy #[id number], 170.2, cm, 10/19/24 17:25:00 EST, Height/Length Dosing, 90.5, kg, 10/19/24 17:25:00 EST, Weight Dosing Start Date: 10/20/24 Status: Ordered naproxen 500 mg oral tablet (16 sources) Nonsteroidal Anti-inflammatory Drug Start: 02-19-2023 take 1 tablet by mouth twice daily Naproxen 500 mg tablet Active 500 MG PO Twice daily March 23, 2023 12:00am Start: 06-21-2019 End: 02-15-2023 take 1 capsule by mouth twice daily as needed for pain Naproxen Sodium (Aleve) 220 mg Capsule Discontinued 220 MG PO Twice daily as needed for Pain June 21, 2019 12:00am February 15, 2023 9:46am omeprazole 20 mg Cap-DR (1 source) Start: 01-11-2022 take 1 capsule by mouth once daily omeprazole 20 mg Cap-DR 20 mg = 1 cap(s), Oral, Daily, # 90 cap(s), Refills(s) 3, Pharmacy: [facility]/pharmacy #[id number], 170, cm, 01/11/22 9:17:00 EDT, Height/Length Dosing, 83, kg, 01/11/22 9:17:00 EDT, Weight Dosing Start Date: 01/11/22 Status: Ordered omeprazole 40 mg Cap-DR (1 source) Start: 01-28-2022 End: 04-28-2022 take 1 capsule by mouth once daily omeprazole 40 mg Cap-DR 40 mg = 1 cap(s), Oral, Daily, X 90 day(s), # 90 cap(s), Refills(s) 0, Pharmacy: [facility]/pharmacy #[id number], 170, cm, 01/28/22 13:40:00 EDT, Height/Length [...] 08/25/2023 Active Start: 04-13-2018 End: 02-25-2019 take 1 tablet by mouth twice daily Pantoprazole 40 mg Tablet,Delayed Release (Dr/Ec) Discontinued 40 MG PO Twice daily November 12, 2018 1:00am February 25, 2019 6:46pm Start: 04-05-2018 End: 04-13-2018 take 1 tablet by mouth once daily Pantoprazole (Protonix) 40 mg Tablet,Delayed Release (Dr/Ec) Discontinued 40 MG PO Daily April 05, 2018 12:00am April 13, 2018 11:34am polyethylene glycol [id number] mg powder for oral solution (9 sources) Osmotic Laxative Start: 08-30-2024 End: 09-19-2024 [...] 2023 12:00am May 11, 2024 8:09am sennosides, long term 8.6 mg oral tablet (3 sources) Start: [...] 08/30/2024 Discontinued sertraline 50 mg oral tablet (18 sources) Serotonin Reuptake Inhibitor Start: 01-29-2024 take [...] Daily, # 30 tab(s), Refills(s) 0, Pharmacy: [facility]/pharmacy #[id number], 170.2, cm, 10/19/24 17:25:00 EST, Height/Length Dosing, 90.5, kg, 10/19/24 17:25:00 EST, Weight Dosing Start Date: 10/20/24 Status: Ordered Zofran ODT 4 mg Tab-Dis (11 sources) Start: 09-20-2020 take 1 tablet by mouth every six hours as needed for nausea Zofran ODT 4 mg Tab-Dis 4 mg = 1 tab(s), Oral, q6hr, PRN Nausea/Vomiting, # 12 tab(s), Refills(s) 0, [id number] 170, cm, 09/20/20 16:03:00 EST, Height/Length Dosing, 87.5, kg, 09/20/20 16:03:00 EST, Weight Dosing Start Date: 09/20/20 Status: Ordered Completed/Discontinued Medications Medication Drug Class(es) Dates Sig (Normalized) Sig (Original) acetaminophen 325 mg / HYDROcodone bitartrate 5 mg oral tablet (14 sources) Opioid Agonist Start: 06-21-2019 End: 02-15-2023 take 1 tablet by mouth every six hours as needed for pain Hydrocodone-Acetami nophen ([place]) 5-325 mg Tablet Discontinued 1 TAB PO Q6H as needed for Pain June 21, 2019 12:00am February 15, 2023 9:46am Start: 11-12-2018 End: 01-30-2019 take 1 tablet by mouth every four to six hours as needed for pain Hydrocodone-Acetaminophen ([place]) 5-325 mg tablet Discontinued 1 TAB PO EVERY 4-6 HOURS as needed for pain 10 November 12, 2018 January 30, 2019 9:43am Albuterol (6 sources) beta2-Adrenergic Agonist Start: 10-07-2018 End: 11-12-2018 Albuterol Sulfate Discontinued 2 INH INHALATION EVERY 4-6 HOURS October 07, 2018 1:00am November 12, 2018 4:42pm administer with spacer Start: 10-07-2018 End: 11-12-2018 Albuterol Sulfate Discontinu ed 2 INH INHALATION EVERY 4-6 HOURS October 07, 2018 12:00am November 12, 2018 3:42pm administer with spacer Albuterol Sulfate 90 mcg/actuation HFA aerosol inhaler (1 source) Start: 10-07-2018 End: 11-12-2018 Albuterol Sulfate 90 mcg/actuation HFA aerosol inhaler Discontinued 2 INH INHALATION EVERY 4-6 HOURS as needed for shortness of breath or wheezing October 07, 2018 1:00am November 12, 2018 4:42pm administer with spacer 120 actuat budesonide 0.16 mg/actuat / formoterol fumarate 0.0045 mg/actuat metered dose inhaler (7 sources) Corticosteroid, beta2-Adrenergic Agonist Start: 11-12-2018 End: 02-25-2019 take 1 puff(s) by inhalation twice daily Budesonide-Formoter ol (Symbicort) 160-4.5 mcg/actuation Hfa Aerosol Inhaler Discontinued 2 PUFF INHALATION Twice daily November 12, 2018 1:00am February 25, 2019 6:46pm ciprofloxacin 500 mg oral tablet (12 sources) Quinolone Antimicrobial Start: 01-24-2018 ciprofloxacin HCl (CIPRO) 500 mg tablet dexlansoprazole 60 mg delayed release oral capsule (7 sources) Proton Pump Inhibitor Start: 02-25-2019 End: 06-21-2019 take 1 capsule by mouth once daily Dexlansoprazole 60 mg capsule,biphase delayed releas Discontinued 60 MG PO Daily February 25, 2019 12:00am June 21, 2019 1:42pm dicyclomine hydrochloride 10 mg oral capsule (20 sources) Anticholinergic Start: 02-15-2023 End: 05-01-2024 take 1 capsule by mouth four times daily Dicyclomine 10 mg Capsule Discontinued 10 MG PO Four times daily February 15, 2023 12:00am May 01, 2024 9:31am Start: 02-15-2023 End: 03-23-2023 take 1 capsule by mouth three times daily Dicyclomine 10 mg capsule Discontinued 10 MG PO Three times daily February 15, 2023 12:00am March 23, 2023 6:41am Start: 05-05-2021 End: 04-30-2022 take 1 capsule by mouth four times daily Bentyl 10 mg Cap 10 mg = 1 cap(s), Oral, QID, X 30 day(s), # 120 cap(s), Refills(s) 11, Pharmacy: [facility]/pharmacy #[id number], 170, cm, 05/05/21 14:15:00 EDT, Height/Length Dosing, 83.1, kg, 05/05/21 14:15:00 EDT, Weight Dosing Start Date: 05/05/21 Stop Date: 04/30/22 Status: Ordered Start: 09-20-2020 take 2 capsules by m out four times daily Bentyl 10 mg Cap 20 mg = 2 cap(s), Oral, QID, # 20 cap(s), Refills(s) 0, Pharmacy: [facility]/pharmacy #[id number], 170, cm, 09/20/20 16:03:00 EST, Height/Length [...] Discontinued doxycycline hyclate 100 mg oral tablet (7 sources) Tetracycline-cla ss Drug Start: 2018 End: 2018 take 1 tablet by mouth twice daily Doxycycline Hyclate 100 mg tablet Discontinued 100 MG PO Twice daily 24 [...] week(s), # 7 cap(s), Refills(s) 0, Pharmacy: [facility]/pharmacy #[id number], 170.2, cm, 10/19/24 17:25:00 EST, Height/Length Dosing, 90.5, kg, 10/19/24 17:25:00 EST, Weight Dosing Start Date: 10/20/24 Stop Date: 12/08/24 Status: Ordered 250 ml glucose 50 mg/ml / sodium chloride 9 mg/ml injection (1 source) Start: 2023 End: 2023 IntraVENous, at 50 mL/hr, CONTINUOUS, Starting on Tue08/28/24 at 2245 hydroCHLOROthiazide 25 mg / triamterene 37.5 mg oral capsule (15 sources) Potassium-sparin g Diuretic, Thiazide Diuretic Start: 2018 End: 2022 take 1 tablet by mouth once daily Triamterene-Hydrochl orothiazid 37.5-25 mg capsule Discontinued 1 TAB PO Daily January 30, 2019 12:00am February 15, 2023 9:47am take 1 tablet by ana th every twenty-four hours Triamterene-HCTZ 37.5-25 MG 1 tablet in the morning Orally Once a day for 30 day(s) Active ibuprofen 800 mg oral tablet (7 sources) Nonsteroidal Anti-inflammatory Drug Start: 02-09-2019 End: 02-27-2019 take 1 tablet by mouth three times daily as needed for pain Ibuprofen 800 mg Tablet Discontinued 800 MG PO Three times daily as needed for Pain February 09, 2019 12:00am February 27, 2019 3:49pm losartan potassium 100 mg oral tablet (7 sources) Angiotensin 2 Receptor Serena Start: 11-12-2018 End: 02-15-2023 take 1 tablet by mouth once daily Losartan 100 mg Tablet Discontinued 100 MG PO Daily November 12, 2018 1:00am February 15, 2023 9:46am meclizine hydrochloride 25 mg oral tablet (7 sources) Antiemetic Start: 10-07-2018 End: 11-12-2018 take 1 tablet by mouth three times daily as needed Meclizine 25 mg Tablet Discontinued 25 MG PO Three times daily as needed for Vertigo October 07, 2018 1:00am November 12, 2018 4:42pm meloxicam 15 mg oral tablet (7 sources) Nonsteroidal Anti-inflammatory Drug Start: 01-30-2019 End: 02-25-2019 take 1 tablet by mouth once daily Meloxicam 15 mg tablet Discontinued 15 MG PO Daily January 30, 2019 12:00am February 25, 2019 6:46pm 2 ml metoclopramide 5 mg/ml prefilled syringe (20 sources) Dopamine-2 Receptor Antagonist Start: 08-28-2024 End: 08-28-2024 10 mg, IntraVENous, ONCE, 1 dose, On Tue08/28/24 at 1145, IV Push: Max 10 mg over 1-2 minutes. Start: 04-13-2018 End: 04-26-2024 take 1 tablet by mouth every six hours as needed for pain Metoclopramide Hcl (Reglan) 10 mg Tablet Discontinued 10 MG PO Q6H as needed for Abdominal Pain March 23, 2023 12:00am April 26, 2024 8:28am Start: 04-13-2018 take 1 tablet by ana th three times daily Reglan 10 mg Tab 10 mg = 1 tab(s), Oral, TID, # 120 tab(s), Refills(s) 0, Pharmacy: [facility]/pharmacy #[id number], 170, cm, 04/13/21 15:38:00 EDT, Height/Length Dosing, 84.4, kg, 04/13/21 15:38:00 EDT, Weight Dosing Start Date: 04/13/21 Status: Ordered Start: 04-13-2018 take 1 tablet by ana th four times daily Reglan 10 mg Tab 10 mg = 1 tab(s), Oral, QID, # 120 tab(s), Refills(s) 0, Pharmacy: [facility]/pharmacy #[id number], 170, cm, 07/22/22 14:33:00 EST, Height/Length Dosing, 86.6, kg, 07/22/22 14:33:00 EST, Weight Dosing Start Date: 07/22/22 Status: Ordered Start: 04-13-2018 Reglan 10 MG 1 tablet daily as needed Orally once a day for 30 days Apr, Active 24 hr metoprolol succinate 50 mg extended release oral tablet (19 sources) beta-Adrenergic Serena Start: 08-28-2024 take 50 mg by mouth once daily 50 mg, Oral, DAILY, First dose on Tue08/28/24 at 1545, Until Discontinued, Do not crush or chew. Start: 05-01-2024 End: 10-20-2024 metoprolol succinate 50 mg E R Tab 50 mg = 1 tab(s), Tab-ER, Oral, Start date 10/20/24 9:00:00 AM EST, Hold for sbp 110 or less or HR 55 or less, 10/20/24 7:00:00 EST Start Date: 10/20/24 Stop Date: 10/20/24 Status: Completed Start: 02-15-2024 End: 02-14-2025 take 1 tablet by mouth every twenty-four hours in the morning metoprolol succinate XL (Toprol-XL) 50 MG 24 hr tablet Take 50 mg by mouth in the morning. 02/15/2024 02/14/2025 Active metroNIDAZOLE 500 mg oral tablet (12 sources) Nitroimidazole Antimicrobial Start: 01-24-2018 metroNIDAZOLE (FLAGYL) 500 mg tablet nitrofurantoin, macrocrystals 25 mg / nitrofurantoin, monohydrate 75 mg oral capsule (7 sources) Nitrofuran Antibacterial Start: 06-21-2019 End: 02-15-2023 take 1 capsule by mouth twice daily at mealtime Nitrofurantoin Monohyd/M-Cryst (Macrobid) 100 mg capsule Discontinued 100 MG PO Twice daily 14 7 June 21, 2019 12:00am February 15, 2023 9:46am must administer with a meal/food omeprazole 40 mg delayed release oral capsule (20 sources) Proton Pump Inhibitor Start: 02-15-2023 End: 03-31-2023 take 1 capsule by mouth once daily Omeprazole 40 mg Capsule,Delayed Release(Dr/Ec) Discontinued 40 MG PO Daily February 15, 2023 12:00am March 31, 2023 5:11pm Start: 01-28-2022 End: 10-16-2022 take 1 capsule by mouth once daily omeprazole 40 mg Cap-DR 40 mg = 1 cap(s), Oral, Daily, X 90 day(s), # 90 cap(s), Refills(s) 1, Pharmacy: [facility]/pharmacy #[id number], 170, cm, 04/14/22 14:53:00 EDT, Height/Length Dosing, 87, kg, 04/14/22 14:53:00 EDT, Weight Dosing Start Date: 04/19/22 Stop Date: 10/16/22 Status: Ordered Start: 03-24-2018 End: 04-13-2018 take 1 tablet by mouth once daily Omeprazole 20 mg Tablet,Delayed Release (Dr/Ec) Discontinued 20 MG PO Daily March 24, 2018 12:00am April 13, 2018 11:33am Comment on above: Take 40 mg by mouth once daily. ondansetron 4 mg disintegrating oral tablet (20 sources) Serotonin-3 Receptor Antagonist Start: 3 End: 3 take 1 tablet by mouth once daily Ondansetron 4 mg tablet,disintegratin g Discontinued 4 MG PO Daily February 15, [...] (20 sources) Anti-epileptic Agent Start: End: take 1 tablet by mouth once daily at bedtime Oxcarbazepine 300 mg Tablet Discontinued 300 MG PO Daily at bedtime March 23, 2023 12:00am April 26, 2024 8:29am Start: 02-15-2023 End: 04-26-2024 take 1 tablet by mouth once daily in the morning, then take 2 tablets by mouth in the evening Oxcarbazepine 150 mg Tablet Discontinued 150 MG PO Every morning February [...] at 1245 predniSONE 20 mg oral tablet (7 sources) Start: 10-07-2018 End: 11-12-2018 take 2 tablets by mouth once daily in the morning Prednisone 20 mg tablet Discontinued 40 MG PO Every morning 10 October 07, 2018 1:00am November 12, 2018 4:42pm administer with food or milk Start: 10-07-2018 End: 11-12-2018 take 40 mg by mouth once daily in the morning Prednisone Discontinued 40 MG PO Every morning 10 October 07, 2018 1:00am November 12, 2018 4:42pm administer with food or milk promethazine hydrochloride 25 mg oral tablet (20 sources) Phenothiazine Start: 03-24-2018 End: 02-15-2023 take 1 tablet by mouth every four to six hours as needed for nausea and vomiting Promethazine 25 mg tablet Discontinued 25 MG PO EVERY 4-6 HOURS as needed for nausea and vomiting October 26, 2022 1:00am February 15, 2023 9:46am pyridostigmine bromide 60 mg oral tablet (4 sources) Start: 03-31-2023 End: 05-01-2024 take 1 tablet by mouth twice daily Pyridostigmine [place] 60 mg Tablet Discontinued 60 MG PO Twice daily 60 [...] of surgery) sucralfate 1000 mg oral tablet (19 sources) Aluminum Complex Start: 02-15-2023 End: 05-01-2024 [...] 8:47pm traMADol hydrochloride 50 mg oral tablet (7 sources) Opioid Agonist Start: 02-27-2019 End: 06-21-2019 take 1 tablet by mouth every four to six hours as needed for pain Tramadol 50 mg tablet Discontinued 50 MG PO EVERY 4-6 HOURS as needed for pain 20 February 27, 2019 12:00am June 21, 2019 1:45pm Vitamin D (7 sources) Start: 04-26-2024 End: 05-01-2024 vitamin d [...] obstruction or gangrene] Onset: 04-28-2018 01-08-2020 Episodic Comment on above: Problem List clean-u p per request of Phys. EHR Cmte Abdominal pain (20 sources) Epigastric pain; Translations: [Epigastric pain] Onset: 01-28-2022 05-26-2021 Episodic Comment on above: Problem List clean-u p per request of Phys. EHR Cmte Adjustment disorders (1 source) Adjustment disorder with [...] tract (12 sources) Kidney stone 05-10-2019 Episodic Coagulation and hemorrhagic disorders (2 sources) Von Willebrand's disease; Translations: [VON WILLEBRAND DISEASE] Onset: 02-04-2022 Chronic Conditions associated with dizziness or vertigo (4 sources) Dizziness; Translations: [Dizziness and giddiness] 01-07-2025 Episodic Deficiency and other anemia (1 source) Anemia; Translations: [Anemia, unspecified] Onset: 10-19-2024 Episodic Disorders of lipid metabolism (1 source) Hyperlipidemia; Translations: [Hyperlipidemia, unspecified] Onset: 10-19-2024 Chronic Epilepsy; convulsions (17 sources) Seizure; Translations: [Unspecified convulsions] Onset: 10-19-2024 [...] Onset: 11-30-2022 02-24-2021 Episodic Headache; including migraine (20 sources) Migraine; Translations: [Migraine, unspecified, not intractable, without status migrainosus] Onset: 04-07-2022 05-10-2019 Chronic Heart valve disorders (13 sources) Mitral valve prolapse; Translations: [Nonrheumatic mitral (valve) prolapse] Onset: 11-04-2022 09-08-2019 Chronic Intestinal obstruction without hernia (14 sources) Partial intestinal obstruction, unspecified as to [...] [Nausea with vomiting, unspecified] Onset: 01-28-2022 Episodic Comment on above: Problem List clean-u p per request of Phys. EHR Cmte Noninfectious gastroenteritis (2 sources) Noninfective gastroenteritis and colitis, unspecified; Translations: [NONINFECTIVE GE AND COLITIS UNS] Onset: 06-08-2022 Episodic Nonspecific chest pain (2 sources) Other chest pain; Translations: [Other chest pain] Onset: 12-28-2024 Episodic Nutritional deficiencies (2 sources) Malnutrition (calorie); Translations: [Moderate protein-calorie malnutrition] Onset: 10-20-2024 07-22-2023 Chronic Nutritional deficiencies (1 source) Vitamin B deficiency; Translations: [Deficiency of other specified B group vitamins] Onset: 10-20-2024 Episodic Osteoarthritis (13 sources) Arthritis; Translations: [Osteoarthritis] Onset: 10-19-2024 05-10-2019 Chronic Other aftercare (1 source) Other fci (current) drug therapy; Translations: [OTH SUGARCANE PLANTER CURRENT DRUG THERAPY] Onset: 11-30-2022 Episodic Other aftercare (1 source) Long-term current use of drug therapy; Translations: [Other fci (current) drug therapy] Onset: 10-19-2024 Episodic Other [...] syndrome; Translations: [Gastroparesis] Onset: 04-14-2022 05-26-2021 Episodic Comment on above: Problem List clean-u p per request of Phys. EHR Cmte Other disorders of stomach and duodenum (1 [...] Hard stool 09-20-2022 Episodic Other gastrointestinal disorders (14 sources) Dysphagia; Translations: [Dysphagia, unspecified] Onset: 08-15-2024 05-16-2023 Episodic Comment on above: Problem List clean-u p per request of Phys. EHR Cmte Other gastrointestinal disorders (4 sources) Disorder of abdomen; Translations: [Peritoneal adhesions [...] Onset: 07-23-2022 Chronic Other nervous system disorders (6 sources) H/O: respiratory disease; Translations: [Personal history [...] Chronic Other nutritional; endocrine; and metabolic disorders (5 sources) Obesity; Translations: [Obesity, unspecified] Onset: 10-19-2024 08-17-2023 Chronic Comment on above: Problem List clean-u p per request of Phys. EHR Cmte Other nutritional; endocrine; and metabolic disorders (13 sources) Body mass index 25-29 - overweight; Translations: [Overweight] 10-18-2019 Episodic Other screening for suspected conditions (not mental disorders or infectious disease) (8 sources) Encounter for screening mammogram for malignant neoplasm of breast; Translations: [Raised cardiac enzyme or marker] Onset: 11-30-2022 Episodic Comment on above: Problem List clean-u p per request of Phys. EHR Cmte Residual codes; unclassified (2 sources) Obstructive sleep [...] TRACT] Onset: 11-30-2022 Episodic Residual codes; unclassified (1 source) History of fundoplication; Translations: [Other specified postprocedural states] 07-14-2023 Episodic Residual codes; unclassified (1 source) Pain, unspecified; Translations: [Pain, unspecified] Onset: 12-01-2023 Episodic Residual codes; unclassified (4 sources) History of hernia repair; Translations: [Other specified postprocedural states] 08-17-2023 Episodic Comment on above: Problem List clean-u p per request of Phys. EHR Cmte Spondylosis; intervertebral disc disorders; other back problems (5 sources) Backache 09-20-2022 Episodic Sprains and strains (16 sources) Low back strain; Translations: [Strain of muscle, fascia and tendon of lower back, initial encounter] Onset: 02-19-2023 02-09-2019 Episodic Comment on above: Problem List clean-u p per request of Phys. EHR Cmte Unclassified (1 source) VON WILLEBRAND DISEASE UNSPECIFIED; [...] Asymptomatic microscopic hematuria 02-16-2024 Urinary tract infections (11 sources) Urinary tract infectious disease; Translations: [Urinary tract infection, site not specified] Onset: 04-07-2022 06-21-2019 Episodic Comment on above: Problem List clean-u p per request of Phys. EHR Cmte Past or Other Problems Problem Classification Problem [...] HAND UNS INIT ENC] Onset: 08-20-2022 Episodic Cardiac dysrhythmias (6 sources) Palpitations; Translations: [Tachycardia, unspecified] Onset: 02-15-2024 Episodic E Codes: Fire/burn (1 source) Contact with other hot fluids, initial encounter; Translations: [CONTACT W/OTHER HOT FLUIDS INITIAL] Onset: 08-23-2022 Episodic Other connective tissue disease (4 sources) Pain in right lower leg; Translations: [PAIN IN RIGHT LOWER LEG] Onset: 09-06-2022 Episodic Other gastrointestinal disorders (4 sources) Diarrhea, unspecified; Translations: [DIARRHEA UNSPECIFIED] Onset: 06-07-2022 Episodic Other gastrointestinal disorders (6 sources) Dysphagia, unspecified; Translations: [Dysphagia, unspecified] Onset: 05-06-2023 Episodic Other gastrointestinal disorders (2 sources) Personal history of other diseases of the digestive system; Translations: [Personal history of other diseases of the digestive system] Onset: 02-15-2024 Episodic Other lower respiratory disease (2 sources) Shortness of breath; Translations: [Shortness of Breath] Onset: 05-14-2024 Episodic Other lower respiratory disease (2 sources) Other forms of dyspnea; Translations: [Other forms of dyspnea] Onset: 02-15-2024 Episodic Other nutritional; endocrine; and metabolic disorders (2 sources) Overweight; Translations: [Overweight] Onset: 02-15-2024 Episodic Other upper respiratory infections (4 sources) Acute pharyngitis, unspecified; Translations: [ACUTE PHARYNGITIS UNSPECIFIED] Onset: 02-02-2022 Episodic Residual codes; unclassified (4 sources) Other specified postprocedural states; Translations: [OTH SPECIFIED POSTPROCEDURAL STATES] Onset: 04-07-2022 Episodic Screening and history of mental health and substance abuse codes (3 sources) Personal history of nicotine dependence; Translations: [PERSONAL HISTORY OF NICOTINE DEPEND] Onset: 11-30-2022 Episodic Skin and subcutaneous tissue infections (1 [...] Test Name Value Interpretation Reference Range Facility Orders Onlyon 01-11-2025 Orders Only [id number] Arielle Cardoso 1970 F Date Provider Department Center 01/11/2025 [facility] Family History Problem Relation Age of Onset Heart attack Father Coronary artery disease Brother Family Status - Relation Status Age at Mother Alive Father Sister Alive Brother Normal [facility] Office Visiton 12-28-2024 Follow-up visit [id number] Arielle Cardoso 1970 F Date Provider Department Center 12/28/2024 [facility] Family History Problem Relation Age of Onset Heart attack Father Coronary artery disease Brother Family Status - Relation Status Age at Mother Alive Father Sister Alive Brother Level of Service:22189 ME OFFICE/OUTPATIENT ESTABLISHED MOD MDM 30 MIN Reason for Visit and Comments: Hypertension [917144] Follow up from [facility] ER [Other] [facility] 36on 12-25-2024 36 3 attempts made to contact patient, unable to leave a message, patient has an appointment on 12/28/2024. 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 [facility] Urine Cultureon 12-18-2024 Bacteria identified Cx Nom (U) ORGANISM: Strep agalactiae - (group b) (O:STRAGA) [place] Count 15,000 * This is a corrected result. * A prior result that was reported as final has been changed. 15,000 colonies/ml Mixed Bacterial Skin Contaminants 1 Day removed from report on 12/20/24 PERFORMED BY: [place] [address] PATHOLOGIST FACEPIECE LINE SUPERVISOR JAMES COTA M.D. Normal [facility] Comment on above: Performed By: #### C UU #### [address] Patient Letter FTon 2024 Patient Letter [facility] Patient Letter [facility] December 13, 2024 CONSTANTINO CARDOSO [address] [place] [id number] : 1970 Dear Constantino, This is a reminder that you are due for an appointment with [facility]. Please contact our office at [phone] to schedule an appointment at your earliest convenience. Thank you, [facility] Lab Miscellaneous-LCon 11-14 Lab Miscellaneous COMMENT Invalid Interpretation Code [facility] Comment on above: Result Comment: Test Ordered: [id number] Venous Thromb. Patients on VKA Homocysteine 9.5 [...] developed and its performance characteristics determined by [employer]. It has not been cleared or approved by the Food and Drug Administration. Factor VII Antigen 172 % UY Reference Range: 7 months and older: 60 - 175 Results of this test are for research purposes only per the assay business education professor. The performance characteristics of this assay have not been established. The result should not be used as a diagnostic procedure without confirmation of the diagnosis by another medically established diagnostic product or procedure. Protein C Ag/FVII Ag Ratio 0.7 ratio UY Reference Range: 0.5 - 2.2 Results of this test are for research purposes only per the assay business education professor. The performance characteristics of this assay have not been established. The result should not be used as a diagnostic procedure without confirmation of the diagnosis by another medically established diagnostic product or procedure. Protein S Ag/FVII Ag Ratio 0.5 ratio UY Reference Range: 0.5 - 2.2 Results of this test are for research purposes only per the assay business education professor. The performance characteristics of this assay have [...] and older: 22.9 - 30.2 APTT 1:1 CONSUMER EDUCATOR NIY sec UY Testing Not Indicated This test was developed and its performance characteristics determined by [facility]. It has not been cleared or approved by the [place] Food and Drug Administration. APTT 1:1 Saline NIY sec UY Testing Not Indicated This test was developed and its performance characteristics determined by [facility]. It has not been cleared or approved by the [place] Food and Drug Administration. LAC Interpretation Comment UY A lupus anticoagulant is not detected. All antiphospholipid antibodies evaluated are normal. As antibody titers may fluctuate with time, repeat testing may be indicated. Please contact [facility] if further clarification is needed. DRVVT Screen [...] Result Comment UY G-G (Normal-Normal) No prothrombin [id number] mutation present. Interpretation: Comment UY While the patient does not possess this risk factor, other thrombotic risk factors may be detected through systematic clinical laboratory analysis. Methodology: Comment UY Patient DNA was evaluated for the factor II gene mutation at n (more content not included)... Performed By: #### 1 [id number] #### [facility] [address] [place] [address] EEGon 10-28-2024 EEG EEG This is a routine electroencephalogram performed on a 54-year-old female using standard 10/20 lead placement and a [employer] system. All data were obtained digitally and [...] Clinical correlation is recommended. Rush Padilla M.D. mikki Dictated: 10/20/2024 [id number] Typed: 10/21/2024 Normal [facility] Comment on above: Result Comment: Elec tronically Signed By: Randy BAKER, Rush\.br\Date and Time Signed: 10/28/24 07:30 EST BMPon 10-20-2024 Anion gap [Moles/Vol] 9 mmol/L Normal 6-16 [facility] Comment on above: Performed By: #### 2 [id number] #### [facility] [address] [place] [address] Calcium [Mass/Vol] 8.4 mg/dL Low 8.9-11.1 [facility] Comment on above: Performed By: #### 2 [id number] #### [facility] [address] [place] [address] Chloride [Moles/Vol] 112 mmol/L High 101-111 [facility] Comment on above: Performed By: #### 2 [id number] #### [facility] [address] [place] [address] CO2 [Moles/Vol] 25 mmol/L Normal 21-31 [facility] Comment on above: Performed By: #### 2 [id number] #### [facility] [address] [place] [address] Creatinine [Mass/Vol] 0.6 mg/dL Normal 0.5-1.3 [facility] Comment on above: Performed By: #### 2 [id number] #### [facility] [address] [place] [address] Glucose [Mass/Vol] 107 mg/dL Normal 55-199 [facility] Comment on above: Performed By: #### 2 [id number] #### [facility] [address] [place] [address] Potassium [Moles/Vol] 4.1 mmol/L Normal 3.5-5.3 [facility] Comment on above: Performed By: #### 2 [id number] #### [facility] [address] [place] [address] Sodium [Moles/Vol] 142 mmol/L Normal 135-145 [facility] Comment on above: Performed By: #### 2 140841 #### [facility] [address] [place] [address] Urea nitrogen [Mass/Vol] 23 mg/dL High 5-21 [facility] Comment on above: Performed By: #### 2 [id number] #### [facility] [address] [place] [address] Urea nitrogen/Creatinine [Mass ratio] 38 No Units High 10-20 [facility] Comment on above: Performed By: #### 2 [id number] #### [facility] [address] [place] [address] CBC w/ Auto Diffon 5 Basophils/100 WBC (Bld) 0.7 % Normal 0.0-2.0 [facility] Comment on above: Performed By: #### 2 167634 #### [facility] [address] [place] [address] Basophils/Leukocytes Auto (Bld) [Pure # fraction] 0.0 E9/L Normal 0.0-0.2 [facility] Comment on above: Performed By: #### 2 674060 #### [facility] [address] [place] [address] Eosinophils (Bld) [#/Vol] 0.2 E9/L Normal 0.0-0.5 [facility] Comment on above: Performed By: #### 2 [id number] #### [facility] [address] [place] [address] Eosinophils/100 WBC (Bld) 4.9 % Normal 0.0-8.0 [facility] Comment on above: Performed By: #### 2 471719 #### [facility] [address] [place] [address] Erythrocyte distribution width (RBC) [Ratio] 14.2 % Normal 10.9-14.2 [facility] Comment on above: Performed By: #### 2 661003 #### [facility] [address] [place] [address] Hematocrit (Bld) [Volume fraction] 32.4 % Low 34.0-46.0 [facility] Comment on above: Performed By: #### 2 763577 #### [facility] [address] [place] [address] Hemoglobin (Bld) [Mass/Vol] 11.0 g/dL Low 12.0-16.0 [facility] Comment on above: Performed By: #### 2 732966 #### [facility] [address] [place] [address] Lymphocytes (Bld) [#/Vol] 1.5 E9/L Normal 1.0-4.0 [facility] Comment on above: Performed By: #### 2 781658 #### [facility] [address] [place] [address] Lymphocytes/100 WBC (Bld) 32.6 % Normal 14.0-50.0 [facility] Comment on above: Performed By: #### 2 729965 #### [facility] [address] [place] [address] MCH (RBC) [Entitic mass] 30.1 pg Normal 27.0-34.0 [facility] Comment on above: Performed By: #### 2 414412 #### [facility] [address] [place] [address] MCHC (RBC) [Mass/Vol] 33.9 g/dL Normal 31.4-36.0 [facility] Comment on above: Performed By: #### 2 109773 #### [facility] [address] [place] [address] MCV (RBC) [Entitic vol] 89.0 fL Normal 80.0-100.0 [facility] Comment on above: Performed By: #### 2 374910 #### [facility] [address] [place] [address] Monocytes (Bld) [#/Vol] 0.4 E9/L Normal 0.2-1.0 [facility] Comment on above: Performed By: #### 2 185951 #### [facility] [address] [place] [address] Neutrophils (Bld) [#/Vol] 2.5 E9/L Normal 2.0-7.5 [facility] Comment on above: Performed By: #### 2 071997 #### [facility] [address] [place] [address] Neutrophils/100 WBC (Bld) 53.5 % Normal 36.0-75.0 [facility] Comment on above: Performed By: #### 2 [id number] #### [facility] [address] [place] [address] Platelet 385.0 E9/L Normal 150.0-500.0 [facility] Comment on above: Performed By: #### 2 [id number] #### [facility] [address] [place] [address] Platelet mean volume (Bld) [Entitic vol] 7.1 fL Normal 6.4-10.8 [facility] Comment on above: Performed By: #### 2 036345 #### [facility] [address] [place] [address] RBC (Bld) [#/Vol] 3.6 E12/L Low 4.3-5.9 [facility] Comment on above: Performed By: #### 2 495959 #### [facility] [address] [place] [address] WBC corrected for nucl RBC Auto (Bld) [#/Vol] 4.6 E9/L Normal 4.0-11.0 [facility] Comment on above: Performed By: #### 2 [id number] #### [facility] [address] [place] [address] CHEMISTRYOrdered By: Lab ROP User on 10-20-2024 Glucose [Mass/Vol] 115 mg/dL High 55 - 99 mg/dL [facility] POC Subsection Comment on above: Result Comment: Paul roche RN/ POC Username ALMA MORRIS Invalid Interpretation Code [facility] POC Subsection Sodium [Moles/Vol] 752408103638 mmol/L Invalid Interpretation Code [facility] POC Subsection Sodium [Moles/Vol] [id number] mmol/L Invalid Interpretation Code [facility] POC Subsection Glucose [Mass/Vol] 93 mg/dL Normal 55 - 99 mg/dL [facility] POC Subsection Comment on above: Result Comment: Paul roche RN/ POC Username ALMA MORRIS Invalid Interpretation Code [facility] POC Subsection Sodium [Moles/Vol] [id number] mmol/L Invalid Interpretation Code [facility] POC Subsection Sodium [Moles/Vol] 745663078 mmol/L Invalid Interpretation Code [facility] POC Subsection CHEMISTRYOrdered By: SYSTEM SYSTEM on [...] 10-06 Glucose [Mass/Vol] 115 mg/dL High 55-99 [facility] Comment on above: Result Comment: Paul VARGAS Performed By: #### 2 [id number] ####[facility] [address] [place] [address] Glucose [Mass/Vol] 93 mg/dL Normal 55-99 [facility] Comment on above: Result Comment: Paul VARGAS Performed By: #### 2 [id number] #### [facility] [address] [place] [address] Discharge Note-Nursingon Discharge Note-Nursing Discharge Note-Nursing CONSTANTINO [...] to 2 days Where: [address] [place] [phone] Business (1) Follow Up with Randy BAKER, REGINALDO Baker When: Within 2 to 4 weeks Where: [facility] [address] [place] [address]- Medications What How Much When Why Instructions Next Dose New aspirin (aspirin 81 mg Oral EC Tab) 1 Tablets By Mouth Every day Pickup at [facility]/pharmacy #6177 10/21/24 9am New cyanocobalamin (cyanocobalamin 1000 mcg Tab) 1 Tablets By Mouth Every day Pickup at [facility]/pharmacy #6177 10/21/24 9am New levetiracetam (Keppra 500 mg Tab) 1 Tablets By Mouth 2 times a day Pickup at [facility]/pharmacy #6177 10/20/24 9pm New multivitamin (Multi Vitamins oral tablet) 1 Tablets By Mouth Every day Pickup at [facility]/pharmacy #6177 10/21/24 9am Changed ergocalciferol (ergocalciferol 50,000 intl units Cap) 1 Capsules By Mouth Every 7 days Duration: 7 Weeks Pickup at [facility]/pharmacy #6177 10/27/24 9am Unchanged acarbose (acarbose 25 [...] Mouth Every day 10/21/24 9am Pharmacy Information [facility]/pharmacy #6177: [address] [place], [place] [phone] What How Much When Why Comments Stop [...] Low (10/20/24 (more content not included)... Normal [facility] HEMATOLOGYOrdered By: SYSTEM SYSTEM on 10-20-2024 Basophils/100 [...] 10-20-2024 Inpatient Clinical Summary Inpatient Clinical Summary [address] [address] Clinical Summary Person Information: Name: CONSTANTINO CARDOSO Age: 54 Years : 1970 Sex: Female PCP: JUDI YOUSSEF CNP Marital Status: Phone: [phone] Race: White Ethnicity: Non- or Language: Ethiopian MRN: [id number] Visit Id: Visit Reason: Facial droop; Headache; Potential stroke; POSS STROKE Speciality: Acuity: Enc Type: Observation Med Service: Medical Arrival: 10/19/2024 17:04:11 Discharge: Dispo Type: Admitted as IP to this Hosp Address: [facility] [id number] Provider Notes: Diagnosis: 1:Stroke-like symptoms; 2:Migraine headache; [...] Follow up: With: Address: When: JUDI YOUSSEF [address] [place], [place] [id number] [phone] Business (1) Within 1 to 2 days With: Address: When: Rush Padilla MD [place] [id number] Within 2 to 4 weeks Patient Education Information: Seizure, Adult, Bcbi-jy-Rdxr; Vitamin B12 Deficiency, Cfdt-zr-Jifb; Vitamin D Deficiency, Ajqd-fm-Djsx; Vitamin D Test; Migraine Headache, Beur-pn-Vchv aspirin 81 mg Oral EC Tab, cyanocobalamin, ergocalciferol 50,000 intl units Cap, multivitamin Normal [facility] Inpatient Clinical Summary Inpatient Clinical Summary [address] [address] Clinical Summary Person Information: Name: CONSTANTINO CARDOSO Age: 54 Years : 1970 Sex: Female PCP: JUDI YOUSSEF CNP Marital Status: Phone: [phone] Race: White Ethnicity: Non- or Language: Ethiopian Visit Id: Visit Reason: Facial droop; Headache; Potential stroke; POSS STROKE Speciality: Acuity: Enc Type: Observation Med Service: Medical Arrival: 10/19/2024 17:04:11 Discharge: Dispo Type: Admitted as IP to this Hosp Address: [address] [facility] [id number] Provider Notes: Diagnosis: 1:Stroke-like symptoms; 2:Migraine headache; [...] Follow up: With: Address: When: JUDI YOUSSEF [address] [place] [address] [phone] Business (1) Within 1 to 2 days With: Address: When: Rush [place] [id number] Within 2 to 4 weeks Patient Education Information: Vitamin B12 Deficiency, Gtru-yw-Fqaw; Vitamin D Deficiency, Dpwt-hs-Yifc; Vitamin D Test; Migraine Headache, Ywhi-hf-Wdco aspirin 81 mg Oral EC Tab, cyanocobalamin, ergocalciferol 50,000 intl units Cap, multivitamin Normal [facility] Inpatient Patient Summaryon 10-20-2024 Inpatient Patient Summary Inpatient Patient Summary [address] [address] Patient Discharge Instructions PERSON INFORMATION Name: CONSTANTINO CARDOSO Date of : 1970 Current Date: 10/20/2024 15:59:27 PHYSICIANS Admitting Physician: Eliezer Lorenzo DO Primary Care Physician: JUDI YOUSSEF CNP PCP Phone Number: [phone] Comment: Discharge Diagnosis: 1:Stroke-like symptoms; 2:Migraine headache; [...] With: Address: When: JUDI YOUSSEF [address] [id number] [phone] Business (1) Within 1 to 2 days With: Address: When: Randy BAKER, REGINALDO [address] [place] [phone] Within 2 to 4 weeks In the [...] STAY New Medications [id number], [address], [place] [id number], [phone] aspirin (aspirin 81 mg Oral EC Tab) [...] Medications to Continue Taking That Have Changed [id number], [address], [place] [id number], [phone] START: ergocalciferol (ergocalciferol 50,000 intl units Cap) [...] oral tablet) (more content not included)... Normal [facility] Inpatient Patient Summary Inpatient Patient Summary [place] [id number] Patient Discharge Instructions PERSON INFORMATION Name: CONSTANTINO CARDOSO Date of : 1970 Current Date: 10/20/2024 11:40:03 PHYSICIANS Admitting Physician: Eliezer Lorenzo DO Primary Care Physician: JUDI YOUSSEF CNP PCP Phone Number: [phone] Comment: Discharge Diagnosis: 1:Stroke-like symptoms; 2:Migraine headache; [...] Follow up: With: Address: When: JUDI YOUSSEF [address] [place] [address] [address] [place] [phone] Business (1) Within 1 to 2 days With: Address: When: Randy BAKER, REGINALDO [address] [place] [phone] Within 2 to 4 weeks In the event that this physician does not participate in your insurance network, please consult with your insurance company to find a nearby participating provider. Comment: WALKER Wong COLLEENIA R, have received the attached patient education materials/instructions and have verbalized understanding: Patient Signature ____ Date Clinican/Nurse Signature Date HERE ARE THE MEDICATION CHANGES THAT OCCURRED DURING YOUR HOSPITAL STAY New Medications [facility] #[id number], [address], [place] [id number], [phone] aspirin (aspirin 81 mg Oral EC Tab) 1 Tablets By Mouth every day. Refills: 0. Last Dose: Next Dose: cyanocobalamin (cyanocobalamin 1000 mcg Tab) 1 Tablets By Mouth every day. Refills: 0. Last Dose: Next Dose: multivitamin (Multi Vitamins oral tablet) 1 Tablets By Mouth every day. Refills: 0. Last Dose: Next Dose: Medications to Continue Taking That Have Changed [facility] #[id number], [address], [place] [id number], [phone] START: ergocalciferol (ergocalciferol 50,000 intl units Cap) [...] cyanocobalamin (cyanocobalamin (more content not included)... Normal [facility] Interdisciplinary Note - Issa n 10-20-2024 Interdisciplinary Note - OT Interdisciplinary Note - OT OT eval completed. [facility] score 24/24. Pt is completing ADL tasks and mobility in room at MOD I without AD, increased time due to soreness in R ankle from previous slip on ice. No skilled OT needs at this time. Normal [facility] Lipid Panelon 10-20-2024 Cholesterol [Mass/Vol] 179 mg/dL Normal 120-200 [facility] Comment on above: Performed By: #### 2 [id number] #### [facility] [address] [place] [address] Cholesterol in HDL [Mass/Vol] 52 mg/dL Invalid Interpretation Code [facility] Comment on above: Result Comment: '>= 60 LOW RISK' '<= 40 HIGH RISK' Performed By: #### 2 [id number] #### [facility] [address] [place] [address] Cholesterol in LDL [Mass/Vol] 105 mg/dL Normal <=129 [facility] Comment on above: Performed By: #### 2 [id number] #### [facility] [address] [place] [address] Cholesterol in VLDL [Mass/Vol] 25 mg/dL Normal 7-40 [facility] Comment on above: Performed By: #### 2 [id number] #### [facility] [address] [place] [address] Triglyceride [Mass/Vol] 127 mg/dL Normal <=149 [facility] Comment on above: Performed By: #### 2 [id number] #### [facility] [address] [place] [address] MRA Head w/o Contraston 10-06 MRA Head w/o Contrast Exam Date/Time: 10/19/2024 22:35 EST Reason for Exam: CVA Report IMPRESSION: PROBABLY NEGATIVE HEAD MRA, NOTED. EXAM: MRA Head w/o Contrast DATE: 10/19/2024 7:13 PM CLINICAL HISTORY: CVA. COMPARISON: Head MRI/MRA 10/19/2024. TECHNIQUE: Three-dimensional [id number] MRA of the intracranial arterial circulation was [...] Garcia MD Transcribed by: REZA Technologist: ANDRA Valentin [facility] MRA Neck w/o Contraston 10-06 MRA Neck w/o Contrast Exam Date/Time: 10/19/2024 22:35 EST Reason for Exam: CVA Report IMPRESSION: NEGATIVE NECK MRA. EXAM: MRA Neck w/o Contrast DATE: 10/19/2024 7:13 PM CLINICAL HISTORY: CVA. Technologist Comments: rt side facial droop, slurred speech, headache; symptoms have resolved currently; r/o stroke; no known injury/head trauma COMPARISON: Head MRI/MRA 10/19/2024. TECHNIQUE: 2D and 3D [id number] MRA of the neck arterial circulation was [...] MD Transcribed by: REZA Technologist: ANDRA Normal [facility] MRI Brain w/o Contraston MRI Brain w/o [...] MD Transcribed by: REZA Technologist: ANDRA Normal [facility] U Drug Screenon 10-20-2024 Amphetamines Screen method >1000 ng/mL Ql (U) Negative Normal NEGATIVE [facility] Comment on above: Result Comment: Nega tive Cutoff: <1000 ng/mL Performed By: #### 2 [id number] #### [facility] [address] [place] [address] Barbiturates Screen Ql (U) Negative Normal NEGATIVE [facility] Comment on above: Result Comment: Nega tive Cutoff: <200 ng/mL Performed By: #### 2 [id number] #### [facility] [address] [place] [address] Benzodiazepines Ql (U) Negative Normal NEGATIVE [facility] Comment on above: Result Comment: Nega tive Cutoff: <200 ng/mL Performed By: #### 2 [id number] #### [facility] [address] [place] [address] Cannabinoids Screen Ql (U) Negative Normal NEGATIVE [facility] Comment on above: Result Comment: Nega tive Cutoff: <50 ng/mL Performed By: #### 2 [id number] #### [facility] [address] [place] [address] Cocaine Ql (U) Negative Normal NEGATIVE [facility] Comment on above: Result Comment: Nega tive Cutoff: <300 ng/mL Performed By: #### 2 [id number] #### [facility] [address] [place] [address] Opiates Screen Ql (U) Negative Normal NEGATIVE [facility] Comment on above: Result Comment: Nega tive Cutoff: <300 ng/mL Performed By: #### 2 [id number] #### [facility] [address] [place] [address] Phencyclidine Screen method >25 ng/mL Ql (U) Negative Normal NEGATIVE [facility] Comment on above: Result Comment: Nega tive Cutoff: <25 ng/mL These drug screen results are to be used for medical (i.e., treatment) purposes only. Unconfirmed drug screening results must not be used for non-medical purposes (e.g., employment testing, legal testing). Performed By: #### 2 [id number] #### [facility] [address] [place] [address] [place] [address] U Fentanyl Negative Normal NEGATIVE [facility] Comment on above: Result Comment: Nega tive Cutoff: <5 ng/mL These drug screen results are to be used for medical (i.e., treatment) purposes only. Unconfirmed drug screening results must not be used for non-medical purposes (e.g., employment testing, legal testing). Performed By: #### 2 [id number] #### [facility] [address] [place] [address] UA with Cult Rflxon 10-20-19 25 Bilirubin Ql (U) Negative Normal Negative [facility] Comment on above: Performed By: #### 4 [id number] #### [facility] [address] [place] [address] Clarity (U) Clear Normal Clear [facility] Comment on above: Performed By: #### 4 [id number] #### [facility] [address] [place] [address] Color (U) Yellow Normal Yellow [facility] Comment on above: Result Comment: Micr oscopic readings are only performed on those samples that meet specific criteria set forth by [facility]. Performed By: #### 4 [id number] #### [facility] [address] [place] [address] Glucose Ql (U) Negative Normal Negative [facility] Comment on above: Performed By: #### 4 [id number] #### [facility] [address] [place] [address] Hemoglobin Auto test strip (U) [Mass/Vol] Negative Normal Negative [facility] Comment on above: Performed By: #### 4 [id number] #### [facility] [address] [place] [address] Ketones Auto test strip Ql (U) Negative Normal Negative [facility] Comment on above: Performed By: #### 4 [id number] #### [facility] [address] [place] [address] Leukocyte esterase Auto test strip Ql (U) Negative Normal Negative [facility] Comment on above: Performed By: #### 4 [id number] #### [facility] [address] [place] [address] Nitrite Auto test strip Ql (U) Negative Normal Negative [facility] Comment on above: Performed By: #### 4 [id number] #### [facility] [address] [place] [address] pH (U) 5.5 [pH] Normal 5.0-9.0 [facility] Comment on above: Performed By: #### 4 [id number] #### [facility] [address] [place] [address] Protein Ql (U) Negative Normal Negative [facility] Comment on above: Performed By: #### 4 [id number] #### [facility] [address] [place] [address] Specific gravity (U) [Rel density] 1.028 Normal 1.005-1.030 [facility] Comment on above: Performed By: #### 4 [id number] #### [facility] [address] [place] [address] Urobilinogen (U) [Mass/Vol] Negative Normal Negative [facility] Comment on above: Performed By: #### 4 [id number] #### [facility] [address] [place] [address] Epithelial cells.squamous Auto (Urine sed) [#/Area] 0-2 Invalid Interpretation Code [facility] Comment on above: Performed By: #### 4 [id number] #### [facility] [address] [place] [address] Mucus Auto Ql (U) 1+ CD:[id number] Abnormal Negative [facility] Comment on above: Performed By: #### 4 [id number] #### [facility] [address] [place] [address] RBC Ql (U) 0-3 Normal 0-3 [facility] Comment on above: Performed By: #### 4 [id number] #### [facility] [address] [place] [address] WBC Auto (Urine sed) [#/Area] 0-5 Normal 0-5 [facility] Comment on above: Performed By: #### 4 [id number] #### [facility] [address] [place] [address] URINALYSISOrdered By: Maddison Acosta on 10-20-2024 Bilirubin Ql (U) Negative Normal Negativemg/ dL [facility] UA Auto SS Clarity (U) Clear (10/20/24 12:51 AM) Normal Clear [facility] UA Auto SS Color (U) Yellow 3 (10/20/24 12:51 AM) Normal Yellow [facility] UA Auto SS Comment on above: Interpretive Data: M icroscopic readings are only performed on those samples that meet specific criteria set forth by [facility]. Glucose Ql (U) Negative Normal Negativemg/ [...] [facility] UA Auto SS pH (U) 5.5 (10/20/24 12:51 AM) Normal 5.0 - 9.0 [facility] UA Auto SS Protein Ql (U) Negative Normal Negativemg/ dL [facility] UA Auto SS Specific gravity (U) [Rel density] 1.028 (10/20/24 12:51 AM) Normal 1.005 - 1.030 [facility] UA Auto SS [...] Normal 0-3graded/H PF [facility] UA Auto SS WBC Auto (Urine sed) [#/Area] 0-5 graded/HPF Normal 0-5graded/H PF [facility] UA Auto SS URINALYSISOrdered By: Guerline BEAN on 10-20-2024 UA Spec Desc Clean Catch (10/20/24 12:51 AM) Normal [facility] UA Auto SS Vitamin D 25 Hydroxyon 10-20 25-hydroxyvitamin D3 [Mass/Vol] 12.7 ng/mL Low 30.0-100.0 [facility] Comment on above: Performed By: #### 5 [id number] #### [facility] [address] [place] [address] eGFRon 10-20-2024 eGFR 106 mL/min/1.73 m2 Normal >=59 [facility] Comment on above: Performed By: #### 1 [id number] #### [facility] [address] [place] [address] BB Draw & Holdon 10-19-2024 BB D&H Sample drawn for Blood Ba Normal [facility] Comment on above: Performed By: #### 1 [id number] #### [facility] [address] [place] [address] CBC w/ Auto Diffon 5 RBC size Nom (Bld) NORMAL Invalid Interpretation Code [facility] Comment on above: Performed By: #### 2 [id number] #### [facility] [address] [place] [address] Basophils/100 WBC (Bld) 0.6 % Normal 0.0-2.0 [facility] Comment on above: Performed By: #### 2 [id number] #### [facility] [address] [place] [address] Basophils/Leukocytes Auto (Bld) [Pure # fraction] 0.0 E9/L Normal 0.0-0.2 [facility] Comment on above: Performed By: #### 2 [id number] #### [facility] [address] [place] [address] Eosinophils (Bld) [#/Vol] 0.2 E9/L Normal 0.0-0.5 [facility] Comment on above: Performed By: #### 2 [id number] #### [facility] [address] [place] [address] Eosinophils/100 WBC (Bld) 3.9 % Normal 0.0-8.0 [facility] Comment on above: Performed By: #### 2 [id number] #### [facility] [address] [place] [address] Erythrocyte distribution width (RBC) [Ratio] 14.1 % Normal 10.9-14.2 [facility] Comment on above: Performed By: #### 2 [id number] #### [facility] [address] [place] [address] Hematocrit (Bld) [Volume fraction] 34.6 % Normal 34.0-46.0 [facility] Comment on above: Performed By: #### 2 [id number] #### [facility] [address] [place] [address] Hemoglobin (Bld) [Mass/Vol] 11.9 g/dL Low 12.0-16.0 [facility] Comment on above: Performed By: #### 2 [id number] #### [facility] [address] [place] [address] Lymphocytes (Bld) [#/Vol] 1.8 E9/L Normal 1.0-4.0 [facility] Comment on above: Performed By: #### 2 [id number] #### [facility] [address] [place] [address] Lymphocytes/100 WBC (Bld) 33.3 % Normal 14.0-50.0 [facility] Comment on above: Performed By: #### 2 [id number] #### [facility] [address] [place] [address] MCH (RBC) [Entitic mass] 30.6 pg Normal 27.0-34.0 [facility] Comment on above: Performed By: #### 2 [id number] #### [facility] [address] [place] [address] MCHC (RBC) [Mass/Vol] 34.2 g/dL Normal 31.4-36.0 [facility] Comment on above: Performed By: #### 2 [id number] #### [facility] [address] [place] [address] MCV (RBC) [Entitic vol] 89.5 fL Normal 80.0-100.0 [facility] Comment on above: Performed By: #### 2 [id number] #### [facility] [address] [place] [address] Monocytes (Bld) [#/Vol] 0.4 E9/L Normal 0.2-1.0 [facility] Comment on above: Performed By: #### 2 [id number] #### [facility] [address] [place] [address] Neutrophils (Bld) [#/Vol] 2.9 E9/L Normal 2.0-7.5 [facility] Comment on above: Performed By: #### 2 [id number] #### [facility] [address] [place] [address] Neutrophils/100 WBC (Bld) 55.0 % Normal 36.0-75.0 [facility] Comment on above: Performed By: #### 2 [id number] #### [facility] [address] [place] [address] Platelet mean volume (Bld) [Entitic vol] 7.2 fL Normal 6.4-10.8 [facility] Comment on above: Performed By: #### 2 [id number] #### [facility] [address] [place] [address] Platelets (Bld) [#/Vol] 424.0 E9/L Normal 150.0-500.0 [facility] Comment on above: Performed By: #### 2 [id number] #### [facility] [address] [place] [address] RBC (Bld) [#/Vol] 3.9 E12/L Low 4.3-5.9 [facility] Comment on above: Performed By: #### 2 [id number] #### [facility] [address] [place] [address] WBC corrected for nucl RBC Auto (Bld) [#/Vol] 5.4 E9/L Normal 4.0-11.0 [facility] Comment on above: Performed By: #### 2 188461 #### [facility] [address] [place] [address] CHEMISTRYOrdered By: Lab ROP User on 10-19-2024 Glucose [Mass/Vol] 93 mg/dL Normal 55 - 99 mg/dL [facility] POC Subsection Comment on above: Result Comment: Paul roche RN/ POC Username STEVIE BELLA Invalid Interpretation Code [facility] POC Subsection Sodium [Moles/Vol] 295918022625 mmol/L Invalid Interpretation Code [facility] POC Subsection Sodium [Moles/Vol] [id number] mmol/L Invalid Interpretation Code [facility] POC Subsection CHEMISTRYOrdered By: SYSTEM SYSTEM on [...] Sensitivity Troponin I Instructions For Use, Guillermo Sae, April 2018) TSH Qn 1.53 m[IU]/L Normal 0.34 - 5.60 mcIU/mL [facility] Urea nitrogen [Mass/Vol] 22 mg/dL High 5 - 21 mg/dL [facility] Urea nitrogen/Creatinine [Mass ratio] 28 mg/mg High 10 - 20 [facility] CHEMISTRYOrdered By: Britta Ortega on 10-19-2024 HbA1c (Bld) [Mass fraction] 5.7 % Normal <=5.9% [facility] ChemAutoSS CMPon 10-19-2024 Albumin [Mass/Vol] 3.9 g/dL Normal 3.3-5.0 [facility] Comment on above: Performed By: #### 2 [id number] #### [facility] [address] [place] [address] Albumin/Globulin (S) [Mass conc ratio] 1.6 Normal 1.1-2.2 [facility] Comment on above: Performed By: #### 2 [id number] #### [facility] [address] [place] [address] ALP [Catalytic activity/Vol] 120 Int._Unit/L High 21-98 [facility] Comment on above: Performed By: #### 2 [id number] #### [facility] [address] [place] [address] ALT No additional P-5'-P [Catalytic activity/Vol] 11 Int._Unit/L Normal 6-46 [facility] Comment on above: Performed By: #### 2 [id number] #### [facility] [address] [place] [address] Anion gap [Moles/Vol] 9 mmol/L Normal 6-16 [facility] Comment on above: Performed By: #### 2 [id number] #### [facility] [address] [place] [address] AST [Catalytic activity/Vol] 14 Int._Unit/L Normal 5-43 [facility] Comment on above: Performed By: #### 2 [id number] #### [facility] [address] [place] [address] Bilirubin [Mass/Vol] 0.4 mg/dL Normal 0.0-1.1 [facility] Comment on above: Performed By: #### 2 [id number] #### [facility] [address] [place] [address] Calcium [Mass/Vol] 8.9 mg/dL Normal 8.9-11.1 [facility] Comment on above: Performed By: #### 2 851016 #### [facility] [address] [place] [address] Chloride [Moles/Vol] 110 mmol/L Normal 101-111 [facility] Comment on above: Performed By: #### 2 071281 #### [facility] [address] [place] [address] CO2 [Moles/Vol] 24 mmol/L Normal 21-31 [facility] Comment on above: Performed By: #### 2 073691 #### [facility] [address] [place] [address] Creatinine [Mass/Vol] 0.8 mg/dL Normal 0.5-1.3 [facility] Comment on above: Performed By: #### 2 [id number] #### [facility] [address] [place] [address] Globulin (S) [Mass/Vol] 2.4 g/dL Normal 1.4-4.0 [facility] Comment on above: Performed By: #### 2 [id number] #### [facility] [address] [place] [address] Glucose [Mass/Vol] 107 mg/dL Normal 55-199 [facility] Comment on above: Performed By: #### 2 821274 #### [facility] [address] [place] [address] Potassium [Moles/Vol] 3.4 mmol/L Low 3.5-5.3 [facility] Comment on above: Performed By: #### 2 044745 #### [facility] [address] [place] [address] Protein [Mass/Vol] 6.3 g/dL Normal 6.0-7.8 [facility] Comment on above: Performed By: #### 2 [id number] #### [facility] [address] [place] [address] Sodium [Moles/Vol] 140 mmol/L Normal 135-145 [facility] Comment on above: Performed By: #### 2 551386 #### [facility] [address] [place] [address] Urea nitrogen [Mass/Vol] 22 mg/dL High 5-21 [facility] Comment on above: Performed By: #### 2 [id number] #### [facility] [address] [place] [address] Urea nitrogen/Creatinine [Mass ratio] 28 No Units High 10-20 [facility] Comment on above: Performed By: #### 2 [id number] #### [facility] [address] [place] [address] COAGULATIONOrdered By: Anabela Matute on 10-19-2024 aPTT Coag (PPP) [Time] 40.8 s High 25.1 - 36.5 second(s) [facility] Auto Coag Comment on above: Interpretive Data: P arameter 15 days - 4 weeks 1 - [...] the same coagulation reagent and instrumentation as [facility]. Currently there are no coagulation studies available worldwide for children to 14 days, and no normal ranges. Heparin therapeutic range (represented by Anti-Factor Xa activity of 0.2 - 0.4 U/mL) corresponds to PTT of 56.6 - 109.0 sec. INR Coag (PPP) [Relative time] 0.96 {INR} Invalid Interpretation Code [facility] Auto Coag Comment on above: Interpretive Data: I NR results are specifically intended to assess patients stabilized on long-term Anticoagulation therapy suggested INR s Less Intensive Anticoagulation 2.0 3.0 Conventional Range 3.0 4.5 PT Coag (PPP) [Time] 10.7 s Normal 9.4 - 1 2.5 second(s) [facility] Auto Coag Comment on above: Interpretive Data: [...] the same coagulation reagent and instrumentation as [facility]. Currently there are no coagulation studies available [...] [facility] FINAL REPORT Dictated: 10/19/2024 5:24 pm Juarez Staples MD Signed (Electronic Signature): 10/19/2024 5:24 pm Signed by: Juarez Staples MD Transcribed by: REZA Technologist: LINDSAY Normal [facility] Capillary Glucose POCon 10-06 Glucose [Mass/Vol] 93 mg/dL Normal 55-99 [facility] Comment on above: Result Comment: Paul roche RN/ Performed By: #### 2 [id number] #### [facility] [address] [place] [address] ED Clinical Summaryon 2024 ED Clinical Summary ED Clinical Summary [address] [address] ED Clinical Summary Person Information Name: CONSTANTINO CARDOSO Roberto/[facility] Age: 54 Years : 1970 Sex: Female Language: Ethiopian PCP: JUDI YOUSSEF CNP Marital Status: Phone: [phone] MRN: [id number] Visit Id: Visit Reason: Facial droop; Headache; Potential stroke; POSS STROKE Speciality: Acuity: 2 Enc Type: Observation Med Service: Medical Arrival: 10/19/2024 17:04:11 Discharge: LOS: 000 02:07 Checkin: 10/19/2024 17:04:11 Checkout: 10/19/2024 19:11:15 Dispo Type: Admitted as IP to this [facility] EVENTS: Event Name Event Status Request Date/Time [...] 10/19/2024 19:11:15 10/19/2024 19:11:15 10/19/2024 19:11:15 ADDRESS: [address] [place] [phone] PHYS DOC NOTES: MEDICAL INFORMATION: Prescriptions Given: [...] deep vein (more content not included)... Normal [facility] ED Note-Physicianon 10-19-19 ED Note-Physician ED Note-Physician Basic Information time Seen: Prosper Bergman DO 10/19/2024 17:06 History of Present Illness 54 [...] Not ta (more content not included)... Normal [facility] Comment on above: Result Comment: Elec tronically Signed By: Prosper Bergman DO\.br\Date and Time Signed: 10/19/24 18:09 EST ED Patient Education Noteon 10-19-2024 ED Patient Education Note ED Patient Education Note Normal [facility] ED Patient Summaryon 025 ED Patient Summary ED Patient Summary [place] [id number] Patient Discharge Instructions Person Information Name: CONSTANTINO CARDOSO Age: 54 Years Arrival Date: 10/19/2024 17:04:11 Discharge Diagnosis: 1:Stroke-like symptoms; 2:Migraine headache; 3:Anemia; 4:Hypokalemia; 5:HTN (hypertension); 6:HLD (hyperlipidemia); 7:Gastroparesis; 8:Acid reflux; 9:Seizure; 10:Osteoarthritis; 11:Obesity due to excess calories; 12:On deep vein thrombosis (DVT) prophylaxis Primary Care Physician: JUDI YOUSSEF CNP Provider Information Primary Provider: Prosper Bergman DO Advanced Vice Admiral:None The exam and treatment you received in the Emergency Department were for an urgent problem and are not intended as complete care. It is important that you follow up with a doctor, nurse practitioner, or physician???s paralegal assistant for ongoing care. If your symptoms [...] opioids can be used to help relieve dfvmfmaq-ov-obtdfk pain and are often prescribed following a [...] believe you (more content not included)... Normal [facility] Ethanolon 10-19-2024 Ethanol Lvl <10 Normal <=11 [facility] Comment on above: Performed By: #### 2 [id number] #### [facility] [address] [place] [address] Ferritinon 10-19-2024 Ferritin [Mass/Vol] 36 ng/mL Normal 11-307 [facility] Comment on above: Performed By: #### 2 [id number] #### [facility] [address] [place] [address] Folateon 10-19-2024 Folate [Mass/Vol] 20.7 ng/mL Normal >=6.7 [facility] Comment on above: Performed By: #### 2 [id number] #### [facility] [address] [place] [address] HEMATOLOGYOrdered By: SYSTEM SYSTEM on 10-19-2024 Basophils/100 [...] Normal 4.0 - 11.0 E9/L Remisol Heme [id number] 10-19-2024 HbA1c (Bld) [Mass fraction] 5.7 % Normal <=5.9 [facility] Comment on above: Performed By: #### 7 [id number] #### [facility] [address] [place] [address] Ironon 10-19-2024 Iron [Mass/Vol] 52 microgram/dL Normal 35-153 [facility] Comment on above: Performed By: #### 2 [id number] #### [facility] [address] [place] [address] LDHon 10-19-2024 LDH 186 Int._Unit/L Normal 93-218 [facility] Comment on above: Performed By: #### 2 [id number] #### [facility] [address] [place] [address] Lab Miscellaneous-LCon 10-19 Test Code 123747 Invalid Interpretation Code [facility] Comment on above: Performed By: #### 1 [id number] #### [facility] [address] [place] [address] Test Name Hypercoag Prof Invalid Interpretation Code [facility] Comment on above: Performed By: #### 1 [id number] #### [facility] [address] [place] [address] Magnesiumon 10-19-2024 Magnesium [Mass/Vol] 1.9 mg/dL Normal 1.3-2.4 [facility] Comment on above: Performed By: #### 2 [id number] #### [facility] [address] [place] [address] PT & PTTon 10-19-2024 aPTT Coag (PPP) [Time] 40.8 second(s) High 25.1-36.5 [facility] Comment on above: Result Comment: Para meter [...] the same coagulation reagent and instrumentation as [facility]. Currently there are no coagulation studies available worldwide for children to 14 days, and no normal ranges. Heparin therapeutic range (represented by Anti-Factor Xa activity of 0.2 - 0.4 U/mL) corresponds to PTT of 56.6 - 109.0 sec. Performed By: #### 1 [id number] #### [facility] [address] [place] [address] INR Coag (PPP) [Relative time] 0.96 {INR} Invalid Interpretation Code [facility] Comment on above: Result Comment: INR results are specifically intended to assess patients stabilized on long-term Anticoagulation therapy suggested INR???s ???Less Intensive Anticoagulation??? 2.0 ??? 3.0 Conventional Range 3.0 ??? 4.5 Performed By: #### 1 [id number] #### [facility] [address] [place] [address] PT Coag (PPP) [Time] 10.7 second(s) Normal 9.4-12.5 [facility] Comment on above: Result Comment: 15 d [...] the same coagulation reagent and instrumentation as [facility]. Currently there are no coagulation studies available worldwide for children to 14 days, and no normal ranges. Performed By: #### 1 [id number] #### [facility] [address] [place] [address] Pre-Arrival Noteon Pre-Arrival Note Pre-Arrival Note [facility] Current Date: 10/19/2024 17:08:25 EST Gender: Female Date of : Age: 50 Pre-Arrival Type: EMS ETA: 10/19/2024 17:20:00 EST Primary Care Physician: Presenting Problem: facial droop / slurred speech Pre-Arrival User: Stevie Bella Referring Source: Location: [place] Completion Date/Time: 10/19/2024 16:51:00 [facility] Emergency Department Pre-Hospital Report Form ____ Vital Signs: Pre-Hospital Report: Treatment in Route: Response to Treatment: Misc. Issues: Normal [facility] Reference Laboratory Testing Ordered By: Guerline BEAN on 10-19-2024 Sodium [Moles/Vol] 073035 mmol/L Invalid Interpretation Code [facility] SendOutsSS Test Name Hypercoag Prof Invalid Interpretation Code [facility] [employer] Retic Counton 10-19-2024 Reticulocytes/100 RBC (Bld) 2.4 % High 0.5-2.2 [facility] Comment on above: Performed By: #### 2 [id number] #### [facility] [address] [place] [address] TIBC Calculatedon 10-19-2024 Iron binding capacity [Mass/Vol] 342 microgram/dL Normal 250-400 [facility] Comment on above: Performed By: #### 1 [id number] #### [facility] [address] [place] [address] Transferrin [Mass/Vol] 244 mg/dL Normal 200-370 [facility] Comment on above: Performed By: #### 1 [id number] #### [facility] [address] [place] [address] TSH With T4fr Reflexon 10-19 TSH Qn 1.53 m[IU]/L Normal 0.34-5.60 [facility] Comment on above: Performed By: #### 1 [id number] #### [facility] [address] [place] [address] Troponin 0 Hr.on 10-19-2024 Troponin HS 10.80 pg/mL Normal 10.10-27.10 [facility] Comment on above: Result Comment: The 95% CI (Confidence Interval) PPV (Positive Predictive Value) for myocardial infarction in females is 38 pg/mL, in males 51 pg/mL. The results should be used in conjunction with clinical conditions of myocardial infarction. (Access High Sensitivity Troponin I Instructions For Use, Guillermo Orlando, April 2018) Performed By: #### 1 [id number] #### [facility] [address] [place] [address] UA with Cult Rflxon 10-19-19 Type of Urine collection method Clean Catch Normal [facility] Comment on above: Performed By: #### 4 [id number] #### [facility] [address] [place] [address] Vit B12on 10-19-2024 Cobalamin (Vitamin B12) [Mass/Vol] 69 pg/mL Normal 50-1500 [facility] Comment on above: Performed By: #### 2 [id number] #### [facility] [address] [place] [address] XR Chest Single Viewon 10-19 XR Chest [...] MD Transcribed by: REZA Technologist: BRIELLE Valentin [facility] eGFRon 10-19-2024 eGFR 87 mL/min/1.73 m2 Normal >=59 [facility] Comment on above: Performed By: #### 1 [id number] #### [facility] [address] [place] [address] Office Visiton 09-17-2024 Follow-up visit [id number] Arielle Cardoso 1970 F Date Provider Department Center 09/17/2024 [id number]-ALHCPLEDISON [facility]ID [facility] Family History Problem Relation Age of Onset Heart attack Father Family Status - Relation Status Age at Father Level of Service:62910 ME OFFICE/OUTPATIENT ESTABLISHED MOD MDM 30 MIN Reason for Visit and Comments: Palpitations [502023] - Occurring no more than usual for her she says. Valve Disorder [3372] - Denies chest pain and SOB. Hypertension [935879] Fatigue [46] - C/o fatigue and no energy . Normal [facility] Basic Metab w/rfx MGon 08-30 Anion gap [Moles/Vol] 11 mmol/L Normal 9-16 [facility] Comment on above: Performed By: #### P HO, BMPX, MG, CDP #### [facility] [place] [address] Type Mapper: Josef Rivera MD Calcium [Mass/Vol] 9.4 mg/dL Normal 8.6-10.4 [facility] Comment on above: Performed By: #### P HO, BMPX, MG, CDP #### [facility] [address] [place], [place] [id number] Type Mapper: Josef Rivera MD Chloride [Moles/Vol] 105 mmol/L Normal 98-107 [facility] Comment on above: Performed By: #### P HO, BMPX, MG, CDP #### [facility] [address] [place] [address] Type Mapper: Josef Rivera MD CO2 [Moles/Vol] 24 mmol/L Normal 20-31 [facility] Comment on above: Performed By: #### P HO, BMPX, MG, CDP #### [facility] [address] [place] [address] Type Mapper: Josef Rivera MD Creatinine [Mass/Vol] 0.8 mg/dL Normal 0.6-0.9 [facility] Comment on above: Performed By: #### P HO, BMPX, MG, CDP #### [facility] [address] [place] [address] Type Mapper: Josef Rivera MD GFR/1.73 sq M.predicted among non-blacks MDRD (S/P/Bld) [Vol rate/Area] 88 mL/min/{1.73_m2} Normal >60 [facility] Comment on above: Result Comment: [...] #### P HO, BMPX, MG, CDP #### [facility] [address] [place] [address] Type Mapper: Josef Rivera MD Glucose [Mass/Vol] 107 mg/dL High 74-99 [facility] Comment on above: Performed By: #### P HO, BMPX, MG, CDP #### [facility] [address] [place] [address] Type Mapper: Josef Rivera MD Potassium [Moles/Vol] 3.8 mmol/L Normal 3.7-5.3 [facility] Comment on above: Performed By: #### P HO, BMPX, MG, CDP #### [facility] [address] [place] [address] Type Mapper: Josef Rivera MD Sodium [Moles/Vol] 140 mmol/L Normal 136-145 [facility] Comment on above: Performed By: #### P HO, BMPX, MG, CDP #### [facility] [address] [place], [place] [id number] Type Mapper: Josef Rivera MD Urea nitrogen [Mass/Vol] 5 mg/dL Low 6-20 [facility] Comment on above: Performed By: #### P HO, BMPX, MG, CDP #### [facility] [place], [place] 6421[address] Type Mapper: Josef Rivera MD Basic Metabolic Panel w/ Ref galen to [facility] 08-30-2024 Anion gap [Moles/Vol] 11 mmol/L 9 - 16 mmol/L [facility] Calcium [Mass/Vol] 9.4 mg/dL 8.6 - 10. 4 mg/dL [facility] Chloride [Moles/Vol] 105 mmol/L 98 - 10 7 mmol/L [facility] CO2 [Moles/Vol] 24 mmol/L 20 - 31 mmol/L [facility] Creatinine [Mass/Vol] 0.8 mg/dL 0.6 - 0.9 mg/dL [facility] Est, Glom Filt Rate 88 [...] 107 mg/dL High 74 - 99 mg/dL [facility] Interpretation and review of laboratory results Abnormal [facility] Potassium [Moles/Vol] 3.8 mmol/L 3.7 - 5.3 mmol/L [facility] Sodium [Moles/Vol] 140 mmol/L 136 - 145 mmol/L [facility] Urea nitrogen [Mass/Vol] 5 mg/dL Low 6 - 20 mg/dL [facility] CBC with Auto Differentialon 08-30-2024 Basophils (Bld) [#/Vol] 0.03 10*3/uL [facility] Basophils/100 WBC (Bld) 1 % 0 - 2 % [facility] Eosinophils (Bld) [#/Vol] 0.27 10*3/uL [facility] Eosinophils/100 WBC (Bld) 5 % High 1 - 4 % [facility] Erythrocyte distribution width (RBC) [Ratio] 12.7 % 11.8 - 14.4 % [facility] Hematocrit (Bld) [Volume fraction] 37.4 % 36.3 - 47.1 % [facility] Hemoglobin (Bld) [Mass/Vol] 11.5 g/dL Low 11.9 - 15.1 g/dL [facility] Immature granulocytes (Bld) [#/Vol] [facility] Immature granulocytes/100 WBC (Bld) 0 % 0 [facility] Interpretation and review of laboratory results Abnormal [facility] Lymphocytes/100 WBC (Bld) 25 % 24 - 43 % [facility] Lymphocytes/100 WBC (Bld) 1.35 % [facility] MCH (RBC) [Entitic mass] 28.8 pg 25.2 - 33.5 pg [facility] MCHC (RBC) [Mass/Vol] 30.7 g/dL 28.4 - 34.8 g/dL [facility] MCV (RBC) [Entitic vol] 93.5 fL 82.6 - 102.9 fL [facility] Monocytes/100 WBC (Bld) 9 % 3 - 12 % [facility] Monocytes/100 WBC (Bld) 0.46 % [facility] Neutrophils/100 WBC (Bld) 60 % 36 - 65 % [facility] Nucleated RBC/100 WBC (Bld) [Ratio] 0.0 % 0.0 per 100 WBC [facility] Platelet mean volume (Bld) [Entitic vol] 9.1 fL 8.1 - 13.5 fL [facility] Platelets (Bld) [#/Vol] 321 10*3/uL [facility] RBC (Bld) [#/Vol] 4.00 10*6/uL 3.95 - 5.1 1 m/uL [facility] Segmented neutrophils/100 WBC (Bld) 3.27 % [facility] WBC other (Bld) [#/Vol] 5.4 [facility] CBC with Diffon 08-30-2024 Abs. Basophil 0.03 k/uL Normal 0.00-0.20 [facility] Comment on above: Performed By: #### P HO, BMPX, MG, CDP #### [facility] [address] [place] [address] Type Mapper: Josef Rivera MD Abs.Imm.Granulocyte <0.03 Normal 0.00-0.30 [facility] Comment on above: Performed By: #### P HO, BMPX, MG, CDP #### [facility] [address] [place] [address] Type Mapper: Josef Rivera MD Abs.Neutrophil (Seg) 3.27 k/uL Normal 1.50-8.10 [facility] Comment on above: Performed By: #### P HO, BMPX, MG, CDP #### [facility] [address] [place] [address] Type Mapper: Josef Rivera MD Basophils/100 WBC (Bld) 1 % Normal 0-2 [facility] Comment on above: Performed By: #### P HO, BMPX, MG, CDP #### [facility] [address] [place] [address] Type Mapper: Josef Rivera MD Eosinophils (Bld) [#/Vol] 0.27 10*3/uL Normal 0.00-0.44 [facility] Comment on above: Performed By: #### P HO, BMPX, MG, CDP #### [facility] [address] [place] [address] Type Mapper: Josef Rivera MD Eosinophils/100 WBC (Bld) 5 % High 1-4 [facility] Comment on above: Performed By: #### P HO, BMPX, MG, CDP #### [facility] [address] [place] [address] Type Mapper: Josef Rivera MD Erythrocyte distribution width (RBC) [Ratio] 12.7 % Normal 11.8-14.4 [facility] Comment on above: Performed By: #### P HO, BMPX, MG, CDP #### [facility] [address] [place] [address] Type Mapper: Josef Rivera MD Hematocrit (Bld) [Volume fraction] 37.4 % Normal 36.3-47.1 [facility] Comment on above: Performed By: #### P HO, BMPX, MG, CDP #### [facility] [address] [place] [address] Type Mapper: Josef Rivera MD Hemoglobin (Bld) [Mass/Vol] 11.5 g/dL Low 11.9-15.1 [facility] Comment on above: Performed By: #### P HO, BMPX, MG, CDP #### [facility] [address] [place] [address] Type Mapper: oJsef Rivera MD Immature granulocytes/100 WBC (Bld) 0 % Normal 0 [facility] Comment on above: Performed By: #### P HO, BMPX, MG, CDP #### [facility] [address] [place] [address] Type Mapper: Josef Rivera MD Lymphocytes (Bld) [#/Vol] 1.35 10*3/uL Normal 1.10-3.70 [facility] Comment on above: Performed By: #### P HO, BMPX, MG, CDP #### [place] [address] Type Mapper: Josef Rivera MD Lymphocytes/100 WBC (Bld) 25 % Normal 24-43 [facility] Comment on above: Performed By: #### P HO, BMPX, MG, CDP #### [place] [address] Type Mapper: Josef Rivera MD MCH (RBC) [Entitic mass] 28.8 pg Normal 25.2-33.5 [facility] Comment on above: Performed By: #### P HO, BMPX, MG, CDP #### [facility] [address] [place] [address] Type Mapper: Josef Rivera MD MCHC (RBC) [Mass/Vol] 30.7 g/dL Normal 28.4-34.8 [facility] Comment on above: Performed By: #### P HO, BMPX, MG, CDP #### [facility] [address] [place] [address] Type Mapper: Josef Rivera MD MCV (RBC) [Entitic vol] 93.5 fL Normal 82.6-102.9 [facility] Comment on above: Performed By: #### P HO, BMPX, MG, CDP #### [facility] [address] [place] [address] Type Mapper: Josef Rivera MD Monocytes (Bld) [#/Vol] 0.46 10*3/uL Normal 0.10-1.20 [facility] Comment on above: Performed By: #### P HO, BMPX, MG, CDP #### [facility] [address] [place] [address] Type Mapper: Josef Rivera MD Monocytes/100 WBC (Bld) 9 % Normal 3-12 [facility] Comment on above: Performed By: #### P HO, BMPX, MG, CDP #### [address] [address] Type Mapper: Josef Rivera MD Neutrophil (Seg) 60 % Normal 36-65 [facility] Comment on above: Performed By: #### P HO, BMPX, MG, CDP #### [address] [address] Type Mapper: Josef Rivera MD NRBC Automated 0.0 per 100 WBC Normal 0.0 [facility] Comment on above: Performed By: #### P HO, BMPX, MG, CDP #### [address] [address] Type Mapper: Josef Rivera MD Platelet mean volume (Bld) [Entitic vol] 9.1 fL Normal 8.1-13.5 [facility] Comment on above: Performed By: #### P HO, BMPX, MG, CDP #### [address] [address] Type Mapper: Josef Rivera MD Platelets (Bld) [#/Vol] 321 10*3/uL Normal 138-453 [facility] Comment on above: Performed By: #### P HO, BMPX, MG, CDP #### [facility] [address] [place] [address] Type Mapper: Josef Rivera MD RBC (Bld) [#/Vol] 4.00 10*6/uL Normal 3.95-5.11 [facility] Comment on above: Performed By: #### P HO, BMPX, MG, CDP #### [facility] [address] Type Mapper: Josef Rivera MD WBC (Bld) [#/Vol] 5.4 10*3/uL Normal 3.5-11.3 [facility] Comment on above: Performed By: #### P HO, BMPX, MG, CDP #### [facility] [address] [place] [id number] Type Mapper: Jsoef Rivera MD Glucose,Whole Bloodon 2023 Glucose [Mass/Vol] 104 mg/dL Normal 65-105 [facility] Glucose [Mass/Vol] 120 mg/dL High 65-105 [facility] Glucose [Mass/Vol] 97 mg/dL Normal 65-105 [facility] POC Glucose Fingerstickon Glucose [Mass/Vol] 104 mg/dL 65 - 105 mg/dL [facility] Glucose [Mass/Vol] 120 mg/dL High 65 - 105 mg/dL [facility] Interpretation and review of laboratory results Abnormal [facility] Glucose [Mass/Vol] 97 mg/dL 65 - 105 mg/dL [facility] Basic Metab w/rfx MGon 08-29 Anion gap [Moles/Vol] 12 mmol/L Normal 9-16 [facility] Comment on above: Performed By: #### P HO, BMPX, MG, CDP #### [facility] [address] [place] [address] Type Mapper: Josef Rivera MD Calcium [Mass/Vol] 8.9 mg/dL Normal 8.6-10.4 [facility] Comment on above: Performed By: #### P HO, BMPX, MG, CDP #### [facility] [address] [place] [address] Type Mapper: Josef Rievra MD Chloride [Moles/Vol] 106 mmol/L Normal 98-107 [facility] Comment on above: Performed By: #### P HO, BMPX, MG, CDP #### [facility] [address] [place] [address] Type Mapper: Josef Rivera MD CO2 [Moles/Vol] 22 mmol/L Normal 20-31 [facility] Comment on above: Performed By: #### P HO, BMPX, MG, CDP #### [facility] [address] [place] [address] Type Mapper: Josef Rivera MD Creatinine [Mass/Vol] 0.7 mg/dL Normal 0.6-0.9 [facility] Comment on above: Performed By: #### P HO, BMPX, MG, CDP #### [address] [address] Type Mapper: Josef Rivera MD GFR/1.73 sq M.predicted among non-blacks MDRD (S/P/Bld) [Vol rate/Area] mL/min/{1.73_m2} Normal >60 [facility] Comment on above: Result Comment: [...] #### P HO, BMPX, MG, CDP #### [facility] [address] [place] [address] Type Mapper: Josef Rivera MD Glucose [Mass/Vol] 100 mg/dL High 74-99 [facility] Comment on above: Performed By: #### P HO, BMPX, MG, CDP #### [facility] [address] [place] [address] Type Mapper: Josef Rivera MD Potassium [Moles/Vol] 3.4 mmol/L Low 3.7-5.3 [facility] Comment on above: Performed By: #### P HO, BMPX, MG, CDP #### [facility] [address] [place] [address] Type Mapper: Josef Rivera MD Sodium [Moles/Vol] 140 mmol/L Normal 136-145 [facility] Comment on above: Performed By: #### P HO, BMPX, MG, CDP #### [facility] [address] [place], [place] 1729[address] Type Mapper: Josef Rivera MD Urea nitrogen [Mass/Vol] 9 mg/dL Normal 6-20 [facility] Comment on above: Performed By: #### P HO, BMPX, MG, CDP #### [facility] [place], [place] [id number] Type Mapper: Josef Rivera MD Basic Metabolic Panel w/ Ref galen to [facility] 08-29-2024 Anion gap [Moles/Vol] 12 mmol/L 9 - 16 mmol/L [facility] Calcium [Mass/Vol] 8.9 mg/dL 8.6 - 10. 4 mg/dL [facility] Chloride [Moles/Vol] 106 mmol/L 98 - 10 7 mmol/L [facility] CO2 [Moles/Vol] 22 mmol/L 20 - 31 mmol/L [facility] Creatinine [Mass/Vol] 0.7 mg/dL 0.6 - 0.9 mg/dL [facility] Est, Glom Filt Rate - PINF [facility] [...] 100 mg/dL High 74 - 99 mg/dL [facility] Interpretation and review of laboratory results Abnormal [facility] Potassium [Moles/Vol] 3.4 mmol/L Low 3.7 - 5.3 mmol/L [facility] Sodium [Moles/Vol] 140 mmol/L 136 - 145 mmol/L [facility] Urea nitrogen [Mass/Vol] 9 mg/dL 6 - 20 mg/dL [facility] CBC with Auto Differentialon 08-29-2024 Basophils (Bld) [#/Vol] [facility] Basophils/100 WBC (Bld) 0 % 0 - 2 % [facility] Eosinophils (Bld) [#/Vol] 0.24 10*3/uL [facility] Eosinophils/100 WBC (Bld) 4 % 1 - 4 % [facility] Erythrocyte distribution width (RBC) [Ratio] 13.1 % 11.8 - 14.4 % [facility] Hematocrit (Bld) [Volume fraction] 35.8 % Low 36.3 - 47.1 % [facility] Hemoglobin (Bld) [Mass/Vol] 11.2 g/dL Low 11.9 - 15.1 g/dL [facility] Immature granulocytes (Bld) [#/Vol] [facility] Immature granulocytes/100 WBC (Bld) 0 % 0 [facility] Interpretation and review of laboratory results Abnormal [facility] Lymphocytes/100 WBC (Bld) 25 % 24 - 43 % [facility] Lymphocytes/100 WBC (Bld) 1.43 % [facility] MCH (RBC) [Entitic mass] 29.2 pg 25.2 - 33.5 pg [facility] MCHC (RBC) [Mass/Vol] 31.3 g/dL 28.4 - 34.8 g/dL [facility] MCV (RBC) [Entitic vol] 93.2 fL 82.6 - 102.9 fL [facility] Monocytes/100 WBC (Bld) 7 % 3 - 12 % [facility] Monocytes/100 WBC (Bld) 0.39 % [facility] Neutrophils/100 WBC (Bld) 63 % 36 - 65 % [facility] Nucleated RBC/100 WBC (Bld) [Ratio] 0.0 % 0.0 per 100 WBC [facility] Platelet mean volume (Bld) [Entitic vol] 9.2 fL 8.1 - 13.5 fL [facility] Platelets (Bld) [#/Vol] 318 10*3/uL [facility] RBC (Bld) [#/Vol] 3.84 10*6/uL Low 3.95 - 5.1 1 m/uL [facility] Segmented neutrophils/100 WBC (Bld) 3.62 % [facility] WBC other (Bld) [#/Vol] 5.7 [facility] CBC with Diffon 08-29-2024 Abs. Basophil <0.03 Normal 0.00-0.20 [facility] Comment on above: Performed By: #### P HO, BMPX, MG, CDP #### [facility] [address] [place] [address] Type Mapper: Josef Rivera MD Abs.Imm.Granulocyte <0.03 Normal 0.00-0.30 [facility] Comment on above: Performed By: #### P HO, BMPX, MG, CDP #### [facility] [address] [place] [address] Type Mapper: Josef Rivera MD Abs.Neutrophil (Seg) 3.62 k/uL Normal 1.50-8.10 [facility] Comment on above: Performed By: #### P HO, BMPX, MG, CDP #### [facility] [address] [place] [address] Type Mapper: Josef Rivera MD Basophils/100 WBC (Bld) 0 % Normal 0-2 [facility] Comment on above: Performed By: #### P HO, BMPX, MG, CDP #### [facility] [address] [place] [address] Type Mapper: Josef Rivera MD Eosinophils (Bld) [#/Vol] 0.24 10*3/uL Normal 0.00-0.44 [facility] Comment on above: Performed By: #### P HO, BMPX, MG, CDP #### [facility] [address] [place] [address] Type Mapper: Josef Rivera MD Eosinophils/100 WBC (Bld) 4 % Normal 1-4 [facility] Comment on above: Performed By: #### P HO, BMPX, MG, CDP #### [facility] [address] [place] [address] Type Mapper: Josef Rivera MD Erythrocyte distribution width (RBC) [Ratio] 13.1 % Normal 11.8-14.4 [facility] Comment on above: Performed By: #### P HO, BMPX, MG, CDP #### [facility] [address] [place] [address] Type Mapper: Josef Rivera MD Hematocrit (Bld) [Volume fraction] 35.8 % Low 36.3-47.1 [facility] Comment on above: Performed By: #### P HO, BMPX, MG, CDP #### [facility] [address] [place] [address] Type Mapper: Josef Rivera MD Hemoglobin (Bld) [Mass/Vol] 11.2 g/dL Low 11.9-15.1 [facility] Comment on above: Performed By: #### P HO, BMPX, MG, CDP #### [facility] [address] [place] [address] Type Mapper: Josef Rivera MD Immature granulocytes/100 WBC (Bld) 0 % Normal 0 [facility] Comment on above: Performed By: #### P HO, BMPX, MG, CDP #### [facility] [address] [place] [address] Type Mapper: Josef Rivera MD Lymphocytes (Bld) [#/Vol] 1.43 10*3/uL Normal 1.10-3.70 [facility] Comment on above: Performed By: #### P HO, BMPX, MG, CDP #### [facility] [address] [place] [address] Type Mapper: Josef Rivera MD Lymphocytes/100 WBC (Bld) 25 % Normal 24-43 [facility] Comment on above: Performed By: #### P HO, BMPX, MG, CDP #### [facility] [address] [place] [address] Type Mapper: Josef Rivera MD MCH (RBC) [Entitic mass] 29.2 pg Normal 25.2-33.5 [facility] Comment on above: Performed By: #### P HO, BMPX, MG, CDP #### [facility] [address] [place] [address] Type Mapper: Josef Rivera MD MCHC (RBC) [Mass/Vol] 31.3 g/dL Normal 28.4-34.8 [facility] Comment on above: Performed By: #### P HO, BMPX, MG, CDP #### [facility] [address] [place] [address] Type Mapper: Josef Rivera MD MCV (RBC) [Entitic vol] 93.2 fL Normal 82.6-102.9 [facility] Comment on above: Performed By: #### P HO, BMPX, MG, CDP #### [facility] [address] [place] [address] Type Mapper: Josef Rivera MD Monocytes (Bld) [#/Vol] 0.39 10*3/uL Normal 0.10-1.20 [facility] Comment on above: Performed By: #### P HO, BMPX, MG, CDP #### [facility] [address] [place] [address] Type Mapper: Josef Rivera MD Monocytes/100 WBC (Bld) 7 % Normal 3-12 [facility] Comment on above: Performed By: #### P HO, BMPX, MG, CDP #### [facility] [address] [place] [address] Type Mapper: Josef Rivera MD Neutrophil (Seg) 63 % Normal 36-65 [facility] Comment on above: Performed By: #### P HO, BMPX, MG, CDP #### [facility] [address] [place] [address] Type Mapper: Josef Rivera MD NRBC Automated 0.0 per 100 WBC Normal 0.0 [facility] Comment on above: Performed By: #### P HO, BMPX, MG, CDP #### [facility] [address] [place] [address] Type Mapper: Josef Rivera MD Platelet mean volume (Bld) [Entitic vol] 9.2 fL Normal 8.1-13.5 [facility] Comment on above: Performed By: #### P HO, BMPX, MG, CDP #### [facility] [address] [place] [address] Type Mapper: Josef Rivera MD Platelets (Bld) [#/Vol] 318 10*3/uL Normal 138-453 [facility] Comment on above: Performed By: #### P HO, BMPX, MG, CDP #### [facility] [address] [place] [address] Type Mapper: Josef Rivera MD RBC (Bld) [#/Vol] 3.84 10*6/uL Low 3.95-5.11 [facility] Comment on above: Performed By: #### P HO, BMPX, MG, CDP #### [facility] [address] [place] [address] Type Mapper: Josef Rivera MD WBC (Bld) [#/Vol] 5.7 10*3/uL Normal 3.5-11.3 [facility] Comment on above: Performed By: #### P KARLA ORTIZ, MG, CDP #### [facility] [address] [place] [address] Type Mapper: Josef Rivera MD Glucose,Whole Bloodon 2023 Glucose [Mass/Vol] 112 mg/dL High 65-105 [facility] Glucose [Mass/Vol] 114 mg/dL High 65-105 [facility] Glucose [Mass/Vol] 104 mg/dL Normal 65-105 [facility] Glucose [Mass/Vol] 106 mg/dL High 65-105 [facility] Magnesiumon 08-29-2024 Magnesium [Mass/Vol] 2.1 mg/dL 1.6 - 2 .6 mg/dL [facility] Magnesium [Mass/Vol] 2.1 mg/dL Normal 1.6-2.6 [facility] Comment on above: Performed By: #### P KARLA ORTIZ, MG, CDP #### [facility] [address] [place] [address] Type Mapper: Josef Rivera MD No Panel Informationon 08-29 [facility] POC Glucose Fingerstickon Glucose [Mass/Vol] 112 mg/dL High 65 - 105 mg/dL [facility] Interpretation and review of laboratory results Abnormal [facility] Glucose [Mass/Vol] 114 mg/dL High 65 - 105 mg/dL [facility] Interpretation and review of laboratory results Abnormal [facility] Glucose [Mass/Vol] 104 mg/dL 65 - 105 mg/dL [facility] Interpretation and review of laboratory results Abnormal [facility] Phosphoruson 08-29-2024 Phosphate [Mass/Vol] 4.0 mg/dL 2.5 - 4 .5 mg/dL [facility] Phosphorus, Inorg.on 024 Phosphorus, Inorg. 4.0 mg/dL Normal 2.5-4.5 [facility] Comment on above: Performed By: #### P HO, BMPX, MG, CDP #### [facility] [address] [phone] Type Mapper: Josef Rivera MD XR ABDOMEN (KUB) (SINGLE [...] likely within the antrum of the stomach. shirt marker leads overlie the upper abdomen. Iliac wings [...] Paco Richardson MD 08/29/24 Final result Normal [facility] XR Abdomen Single viewon 1. Moderate gaseous distention of the rectal vault. Gas and stool in the rectal vault. 2. Mild stool burden. No abnormally dilated small bowel loops. 3. NG tube distal tip overlying the medial right upper quadrant likely in the antrum of the stomach. [facility] RIS CONSOLIDATED EXAMINATION: ONE SUPINE XRAY VIEW(S) [...] likely within the antrum of the stomach. shirt marker leads overlie the upper abdomen. Iliac wings and pubic rami grossly unremarkable in appearance. YAZMIN Richardson, Paco Hairston MD - 08/29/2024 EXAMINATION: ONE SUPINE XRAY [...] likely within the antrum of the stomach. shirt marker leads overlie the upper abdomen. Iliac wings and pubic rami grossly unremarkable in appearance. IMPRESSION: 1. Moderate gaseous distention of the rectal vault. Gas and stool in the rectal vault. 2. Mild stool burden. No abnormally dilated small bowel loops. 3. NG tube distal tip overlying the medial right upper quadrant likely in the antrum of the stomach. [facility] [employer] Radiology Study observation (narrative) [facility] XR Abdomen Single viewOrdere d By: Paco Richardson on 08-29-2024 [facility] Work Phone: CBC with Auto Differentialon 08-28-2024 Basophils (Bld) [#/Vol] [facility] [employer] Basophils/100 WBC (Bld) 0 % 0 - 2 % [facility] [employer] Eosinophils (Bld) [#/Vol] 0.05 10*3/uL [facility] Eosinophils/100 WBC (Bld) 1 % 1 - 4 % [facility] Erythrocyte distribution width (RBC) [Ratio] 13.1 % 11.8 - 14.4 % [facility] Hematocrit (Bld) [Volume fraction] 37.2 % 36.3 - 47.1 % [facility] Hemoglobin (Bld) [Mass/Vol] 11.9 g/dL 11.9 - 15.1 g/dL [facility] Immature granulocytes (Bld) [#/Vol] 0.03 10*3/uL [facility] Immature granulocytes/100 WBC (Bld) 0 % 0 [facility] Interpretation and review of laboratory results Abnormal [facility] Lymphocytes/100 WBC (Bld) 11 % Low 24 - 43 % [facility] Lymphocytes/100 WBC (Bld) 0.99 % Low [facility] MCH (RBC) [Entitic mass] 29.5 pg 25.2 - 33.5 pg [facility] MCHC (RBC) [Mass/Vol] 32.0 g/dL 28.4 - 34.8 g/dL [facility] MCV (RBC) [Entitic vol] 92.3 fL 82.6 - 102.9 fL [facility] Monocytes/100 WBC (Bld) 5 % 3 - 12 % [facility] Monocytes/100 WBC (Bld) 0.40 % [facility] Neutrophils/100 WBC (Bld) 83 % High 36 - 65 % [facility] Nucleated RBC/100 WBC (Bld) [Ratio] 0.0 % 0.0 per 100 WBC [facility] Platelet mean volume (Bld) [Entitic vol] 9.2 fL 8.1 - 13.5 fL [facility] Platelets (Bld) [#/Vol] 359 10*3/uL [facility] RBC (Bld) [#/Vol] 4.03 10*6/uL 3.95 - 5.1 1 m/uL [facility] Segmented neutrophils/100 WBC (Bld) 7.44 % [facility] WBC other (Bld) [#/Vol] 8.9 [facility] CBC with Diffon 08-28-2024 Abs. Basophil <0.03 Normal 0.00-0.20 [facility] Comment on above: Performed By: #### C P, CDP #### [place] [address] Type Mapper: Josef Rivera MD Abs.Imm.Granulocyte 0.03 k/uL Normal 0.00-0.30 [facility] Comment on above: Performed By: #### C P, CDP #### [place] [address] Type Mapper: Josef Rivera MD Abs.Neutrophil (Seg) 7.44 k/uL Normal 1.50-8.10 [facility] Comment on above: Performed By: #### C P, CDP #### [place] [address] Type Mapper: Josef Rivera MD Basophils/100 WBC (Bld) 0 % Normal 0-2 [facility] Comment on above: Performed By: #### C P, CDP #### [place] [address] Type Mapper: Josef Rivera MD Eosinophils (Bld) [#/Vol] 0.05 10*3/uL Normal 0.00-0.44 [facility] Comment on above: Performed By: #### C P, CDP #### [place] [address] Type Mapper: Josef Rivera MD Eosinophils/100 WBC (Bld) 1 % Normal 1-4 [facility] Comment on above: Performed By: #### C P, CDP #### [place] [address] Type Mapper: Josef Rivera MD Erythrocyte distribution width (RBC) [Ratio] 13.1 % Normal 11.8-14.4 [facility] Comment on above: Performed By: #### C P, CDP #### [address] [address] Type Mapper: Josef Rivera MD Hematocrit (Bld) [Volume fraction] 37.2 % Normal 36.3-47.1 [facility] Comment on above: Performed By: #### C P, CDP #### [address] [address] Type Mapper: Josef Rivera MD Hemoglobin (Bld) [Mass/Vol] 11.9 g/dL Normal 11.9-15.1 [facility] Comment on above: Performed By: #### C P, CDP #### [address] [address] Type Mapper: Josef Rivera MD Immature granulocytes/100 WBC (Bld) 0 % Normal 0 [facility] Comment on above: Performed By: #### C P, CDP #### [address] [address] Type Mapper: Josef Rivera MD Lymphocytes (Bld) [#/Vol] 0.99 10*3/uL Low 1.10-3.70 [facility] Comment on above: Performed By: #### C P, CDP #### [address] [address] Type Mapper: Josef Rivera MD Lymphocytes/100 WBC (Bld) 11 % Low 24-43 [facility] Comment on above: Performed By: #### C P, CDP #### [address] [address] Type Mapper: Josef Rivera MD MCH (RBC) [Entitic mass] 29.5 pg Normal 25.2-33.5 [facility] Comment on above: Performed By: #### C P, CDP #### [address] [address] Type Mapper: Josef Rivera MD MCHC (RBC) [Mass/Vol] 32.0 g/dL Normal 28.4-34.8 [facility] Comment on above: Performed By: #### C P, CDP #### [address] [address] Type Mapper: Josef Rivera MD MCV (RBC) [Entitic vol] 92.3 fL Normal 82.6-102.9 [facility] Comment on above: Performed By: #### C P, CDP #### [address] [address] Type Mapper: Josef Rivera MD Monocytes (Bld) [#/Vol] 0.40 10*3/uL Normal 0.10-1.20 [facility] Comment on above: Performed By: #### C P, CDP #### [address] [address] Type Mapper: Josef Rivera MD Monocytes/100 WBC (Bld) 5 % Normal 3-12 [facility] Comment on above: Performed By: #### C P, CDP #### [address] [address] Type Mapper: Josef Rivera MD Neutrophil (Seg) 83 % High 36-65 [facility] Comment on above: Performed By: #### C P, CDP #### [address] [address] Type Mapper: Josef Rivera MD NRBC Automated 0.0 per 100 WBC Normal 0.0 [facility] Comment on above: Performed By: #### C P, CDP #### [address] [address] Type Mapper: Josef Rivera MD Platelet mean volume (Bld) [Entitic vol] 9.2 fL Normal 8.1-13.5 [facility] Comment on above: Performed By: #### C P, CDP #### [address] [address] Type Mapper: Josef Rivera MD Platelets (Bld) [#/Vol] 359 10*3/uL Normal 138-453 [facility] Comment on above: Performed By: #### C P, CDP #### [address] [address] Type Mapper: Josef Rivera MD RBC (Bld) [#/Vol] 4.03 10*6/uL Normal 3.95-5.11 [facility] Comment on above: Performed By: #### C P, CDP #### [address] [address] Type Mapper: Josef Rivera MD WBC (Bld) [#/Vol] 8.9 10*3/uL Normal 3.5-11.3 [facility] Comment on above: Performed By: #### C P, CDP #### [address] [address] Type Mapper: Josef Rivera MD Comp Metabolic Profon 2023 Albumin [Mass/Vol] 4.2 g/dL Normal 3.5-5.2 [facility] Comment on above: Performed By: #### P HO, BMPX, MG, CDP #### [facility] [address] [place] [address] Type Mapper: Josef Rivera MD Albumin/Glob Ratio 1.4 Normal 1.0-2.5 [facility] Comment on above: Performed By: #### P HO, BMPX, MG, CDP #### [facility] [address] [place] [address] Type Mapper: Josef Rivera MD Alkaline Phos 162 U/L High 35-104 [facility] Comment on above: Performed By: #### P HO, BMPX, MG, CDP #### [facility] [address] [place] [address] Type Mapper: Josef Rivera MD ALT [Catalytic activity/Vol] 14 U/L Normal 10-35 [facility] Comment on above: Performed By: #### P HO, BMPX, MG, CDP #### [facility] [address] [place] [address] Type Mapper: Josef Rivera MD Anion gap [Moles/Vol] 11 mmol/L Normal 9-16 [facility] Comment on above: Performed By: #### P HO, BMPX, MG, CDP #### [facility] [address] [place] [address] Type Mapper: Josef Rivera MD AST [Catalytic activity/Vol] 23 U/L Normal -35 [facility] Comment on above: Performed By: #### P HO, BMPX, MG, CDP #### [facility] [address] [place] [address] Type Mapper: Josef Rivera MD Bilirubin [Mass/Vol] 0.2 mg/dL Normal 0.0-1.2 [facility] Comment on above: Performed By: #### P HO, BMPX, MG, CDP #### [facility] [address] [place] [address] Type Mapper: Josef Rivera MD Calcium [Mass/Vol] 9.4 mg/dL Normal 8.6-10.4 [facility] Comment on above: Performed By: #### P HO, BMPX, MG, CDP #### [facility] [address] [place] [address] Type Mapper: Josef Rivera MD Chloride [Moles/Vol] 104 mmol/L Normal 98-107 [facility] Comment on above: Performed By: #### P HO, BMPX, MG, CDP #### [facility] [place] [address] Type Mapper: Josef Rivera MD CO2 [Moles/Vol] 23 mmol/L Normal 20-31 [facility] Comment on above: Performed By: #### P HO, BMPX, MG, CDP #### [facility] [address] [place] [address] Type Mapper: Josef Rivera MD Creatinine [Mass/Vol] 0.7 mg/dL Normal 0.6-0.9 [facility] Comment on above: Performed By: #### P HO, BMPX, MG, CDP #### [address] [address] Type Mapper: Josef Rivera MD GFR/1.73 sq M.predicted among non-blacks MDRD (S/P/Bld) [Vol rate/Area] mL/min/{1.73_m2} Normal >60 [facility] Comment on above: Result Comment: [...] #### P HO, BMPX, MG, CDP #### [facility] [address] [place] [address] Type Mapper: Josef Rivera MD Glucose [Mass/Vol] 115 mg/dL High 74-99 [facility] Comment on above: Performed By: #### P HO, BMPX, MG, CDP #### [facility] [address] [place] [address] Type Mapper: Josef Rivera MD Potassium [Moles/Vol] 4.3 mmol/L Normal 3.7-5.3 [facility] Comment on above: Performed By: #### P HO, BMPX, MG, CDP #### [facility] [address] [place] [address] Type Mapper: Josef Rivera MD Protein [Mass/Vol] 7.1 g/dL Normal 6.6-8.7 [facility] Comment on above: Performed By: #### P HO, BMPX, MG, CDP #### [facility] [address] [place] [address] Type Mapper: Josef Rivera MD Sodium [Moles/Vol] 138 mmol/L Normal 136-145 [facility] Comment on above: Performed By: #### P HO, BMPX, MG, CDP #### [facility] [address] [place] [address] [phone] Type Mapper: Josef Rivera MD Urea nitrogen [Mass/Vol] 9 mg/dL Normal 6-20 [facility] Comment on above: Performed By: #### P HO, BMPX, MG, CDP #### [facility] [address] [place] [address] [phone] Type Mapper: Josef Rivera MD [facility] Metabolic [facility] 08-28-2024 Albumin [Mass/Vol] 4.2 g/dL 3.5 - 5.2 g/dL [facility] Albumin/Globulin [Mass ratio] 1.4 {ratio} 1.0 - 2.5 [facility] ALP [Catalytic activity/Vol] 162 U/L High 35 - 104 U/L [facility] ALT [Catalytic activity/Vol] 14 U/L 10 - 35 U/L [facility] Anion gap [Moles/Vol] 11 mmol/L 9 - 16 mmol/L [facility] AST [Catalytic activity/Vol] 23 U/L 10 - 35 U/L [facility] Bilirubin [Mass/Vol] 0.2 mg/dL 0.0 - 1 .2 mg/dL [facility] Calcium [Mass/Vol] 9.4 mg/dL 8.6 - 10. 4 mg/dL [facility] Chloride [Moles/Vol] 104 mmol/L 98 - 10 7 mmol/L [facility] CO2 [Moles/Vol] 23 mmol/L 20 - 31 mmol/L [facility] Creatinine [Mass/Vol] 0.7 mg/dL 0.6 - 0.9 mg/dL [facility] Est, Francisco Javier Man Rate - PINF [facility] [...] 115 mg/dL High 74 - 99 mg/dL [facility] Interpretation and review of laboratory results Abnormal [facility] Potassium [Moles/Vol] 4.3 mmol/L 3.7 - 5.3 mmol/L [facility] Protein [Mass/Vol] 7.1 g/dL 6.6 - 8.7 g/dL [facility] Sodium [Moles/Vol] 138 mmol/L 136 - 145 mmol/L [facility] Urea nitrogen [Mass/Vol] 9 mg/dL 6 - 20 mg/dL [facility] Glucose,Whole Bloodon 2023 Glucose [Mass/Vol] 100 mg/dL Normal 65-105 [facility] Lactic Acidon 08-28-2024 Lactic Acid, Whole Blood 1.2 mmol/L 0.7 - 2.1 mmol/L [facility] Lactic Acid,Whole Bl 1.2 mmol/L Normal 0.7-2.1 [facility] Comment on above: Performed By: #### P HO, BMPX, MG, CDP #### [facility] [place] [id number] Type Mapper: Josef Rivera MD Magnesiumon 08-28-2024 Magnesium [Mass/Vol] 2.1 mg/dL 1.6 - 2 .6 mg/dL [facility] Magnesium [Mass/Vol] 2.1 mg/dL Normal 1.6-2.6 [facility] Comment on above: Performed By: #### M G #### [facility] [address] [place] [address] Type Mapper: Josef Rivera MD POC Glucose Fingerstickon Glucose [Mass/Vol] 100 mg/dL 65 - 105 mg/dL [facility] XR ABDOMEN (KUB) (SINGLE AP VIEW)on 08-28-2024 [...] Rashaad Lopez MD 08/28/24 Final result Normal [facility] XR Abdomen Single viewon 1. Nonobstructive marium wel gas pattern. 2. Mild left lower lobe infiltrate, which could represent pneumonia. [facility] RIS CONSOLIDATED EXAMINATION: ONE SUPINE XRAY VIEW(S) [...] could represent pneumonia. Bony structures appear normal. [facility] Rashaad Lopez MD - 08/28/2024 EXAMINATION: ONE [...] lower lobe infiltrate, which could represent pneumonia. [facility] Radiology Study observation (narrative) [facility] XR Abdomen Single viewOrdere d By: Rashaad Lopez on 08-28-2024 [facility] Work Phone: Glucose (Bld) [Mass/Vol]on 09-12-2023 Glucose Blood, POC 90 mg/dL [facility] - Hematology and Cell countson 07-13-2024 HbA1c (Bld) [Mass fraction] 5.6 % [facility] No Panel Informationon 07-13 Interpretation and review of laboratory results Normal [facility] [facility] Glucose (Bld) [Mass/Vol]Orde red By: Beverly Clemons on 06-20-2024 Glucose Blood, POC 101 mg/dL [facility] Laboratory - Hematology and Cell countson 06-20-2024 HbA1c (Bld) [Mass fraction] 5.8 % [facility] No Panel InformationOrdered By: Beverly Clemons on 06-20-2024 [facility] Healthcare Office Visiton 05-14-2024 Follow-up visit [id number] Arielle Cardoso 1970 F Date Provider Department Center 05/14/2024 82881-UDXPUREDISON KINCAID Family History Problem Relation Age of Onset Heart attack Father Family Status - Relation Status Age at Father Level of Service:01391 ME OFFICE/OUTPATIENT ESTABLISHED MOD MDM 30 MIN Reason for Visit and Comments: Hypertension [834242] - Patient here for 2 mo follow up. She was started on lisinopril 10mg daily at last visit. She presented to the ED last month for abdominal pain. EKG was done and showed bradycardia. Palpitations [] - Not as bad, still has them Shortness of Breath [] - Improving Normal [facility] Maury 05-11-2024 L Specimen: [id number] Received: 05/11/24 Status: XAVI Francis Num: [id number] Spec Type: Surgical Subm Dr: Jennie Ayon MD Tissues: A GASTRIC FOR HP (GASTRIC R/O H PYLORI) B Esophagus Biopsy (ESOPHAGUS BX R/O BARRETTS) Procedures: HE/4, Gross/Micro L4/2, H PYLORI Age/ Patient Sex Location Account Attending Physician Constantino Cardoso 53/F [id number] Jennie Ayon MD SPEC NUM: [id number] RECD: 05/11/24 STATUS: XAVI FRANCIS NUM: [id number] HAYDEN: 05/11/24 [facility] DR: Jennie Ayon MD ENTERED: 05/11/[address] [facility] [address]: SPEC TYPE: Surgical DEPT: S ENTERED BY: [id number] RECV BY: [id number] ORDERED: HE/4, Gross/Micro L4/2, H PYLORI ORDERED: HE/4, Gross/Micro L4/2, H PYLORI Supplemental Report Addendum 2 Entered: 05/18/24 Supplemental to add CPT code of immunostain: A, CPT: 84970 Addendum Signed (signature on file) Robby Smyth MD 05/18/241707 Addendum 1 Entered: 05/18/24 Supplemental for findings of H. pylori immunostain: A, -H. pylori immunostain with appropriate control is negative for identified Helicobacter organism or infection Specimen: [id number] Received: 05/11/24 Status: XAVI Francis Num: [id number] Spec Type: Surgical Subm Dr: Jennie Ayno MD Tissues: A GASTRIC FOR HP (GASTRIC R/O H PYLORI) B Esophagus Biopsy (ESOPHAGUS BX R/O BARRETTS) Procedures: HE/4, Gross/Micro L4/2, H PYLORI Patient: Constantino Cardoso [id number] (Continued) Specimen: [id number] Received: 05/11/24 (Continued) Supplemental Report (Continued) Signed (signature on file) Robby Smyth MD 05/17/24 1326 Specimen: [id number] Received: 05/11/24 Status: XAVI Francis Num: [id number] Spec Type: Surgical Subm Dr: Jennie Ayon MD Tissues: A GASTRIC FOR HP (GASTRIC R/O H PYLORI) B Esophagus Biopsy (ESOPHAGUS BX R/O BARRETTS) Procedures: HE/4, Gross/Micro L4/2, H PYLORI Patient: Constantino Cardoso [id number] (Continued) Specimen: [id number] Received: 05/11/24 (Continued) Supplemental Report (Continued) Addendum [...] are performed supporting the above interpretation Specimen: [id number] Received: 05/11/24 Status: XAVI Verduzcophil Num: [id number] Spec Type: Surgical Subm Dr: Jennie Ayon MD Tissues: A GASTRIC FOR HP (GASTRIC R/O H PYLORI) B Esophagus Biopsy (ESOPHAGUS BX R/O BARRETTS) Procedures: HE/4, Gross/Micro L4/2, H PYLORI Patient: Constantino Cardoso [id number] (Continued) Specimen: [id number] Received: 05/11/24-1431 (Continued) Signed (signature on file) Chin-Nathan Smyth MD 05/17/24 1326 Specimen: [id number] Rece (more content not included)... Normal [facility] Reminderson 04-09-2024 Reminders Reminders From: Ani Jackson To: EU - Administrative; Sent: 02/16/2024 09:54:18 EDT Show up: 03/05/2024 09:54:00 EDT Subject: Ambulatory Reminder Due Date/Time: 05/20/2024 09:54:00 EDT Reminder/Recall Patient needs scheduled for a 3 month f/u with [facility] due back mid May. [facility] PAT[facility] TO CALL AND SCHEDULE APPT Pt called back and scheduled appt. Normal [facility] Office Visiton 03-19-2024 Follow-up visit [id number] Arielle Cardoso 1970 F Date Provider Department Center 03/19/2024 66385-FTKWMGEDISON KINCAID Family History Problem Relation Age of Onset Heart attack Father Family Status - Relation Status Age at Father Level of Service:79603 ME OFFICE/OUTPATIENT ESTABLISHED MOD MDM 30 MIN Normal [facility] Coding Summary.on 02-25-2024 Coding Summary. FFLFWntm58YEl9nDk+PG hlYWQ +SJ1VMXXpO40kfCBcgV2uQ5FF TElOSywgQVBQTElOSyIgbmFtZ L2ovTQqODSx IC8+ZT4qDESfMdfstEJxy3P1v SL5J18kdb6nBZphsUQ3BHNbQa Cbudnni5tecSl1CMmfYbhyFrN t TZNptA09JWK1rO51Er04rNCys HKjh7ltkCw1VpTuSHIvIIC5lR ixIIvzs6OjRNSvK58wcOOcy3R 6 LGWcjErzwPIxYmTqsQM2lV1oV Wscbjnbr2lcyqinCcb0ot73pA Iyf9X8wWC7B9XxghT4HCWmaFK g NernyGUCvJ9sbjmcm1hegvprZ rVxIDRbPYs8JYo1RCFuuHxxGn WqWA52DGB5AQOujhAmS1HsQUR s wAgyUuG2a6P7Ee9OY9WILehhD 1VNTUFSWTwvdGQ+ZL82bb96N0 CcRwamTqz2VARsBFC2hJR4kM2 n WDEvIWxrx3O5sFQ4N8JccyQta y5sm2upQRPwWFwuT91aaWAxg9 U7RSMhsHK3KVKaeVucZsJhfE6 3 Oyc+WTGshBvca4VeXuqje3dol 4bqsFe9OmolOSBcmdDuqGntJL A7i2KoHm4sUHUcyTI2oHF6rW0 i BvYbLcO3AXxiQ227FtIzwYYwH grzP71bL7UupIW+YEClAla1RM ZaeTkeMH1mV0QzUTMdhqnaiIB m tYftUS8cKWXszjwoWGPoaM6rT AUuK0m4LgYkHlP2LSjbG9EmTA LrmieyMs87mD6gKqPkHlG7AFp u L8HbxxE0JFNbqBShCBitEXP5N 62qz6X1IOHvKXOhOIB6jSW6eE 1hbGlnbjogbGVmdDsgdmVydGl j OHgzUQrfU207TWTmwNlwWcLaQ GluZyBEYXRlOiAgMDYvMjIvMj AyNDwvdGQ+PWKrFFL9rOpwXQZ n aSLnNLtdPy4beVnloSpiYR1bQ DBhaegyUWYvyA9tCPVysOAzeJ lmJE4rCIPmefqxt993LoFxKZK 0 MQHqzGNtJ1NmtJ0uDkXfIQXvU VNaD2MddQNwMWphE561TLnoJt G3YJEhafVzR8CtDQAlwGurLeT 0 d2C5Br0Zo1MhgewvW6CleMKcF zDuOzqiCAn5E4ThRyfdsSW+PC 56FRVkSC84UJc7EGH8bFkdHYv i YXUtV7MlnT1rCrZnHSWmNXDjH yc+PHRhYmxlIHdpZHRoPScxMD EfSrNbxDlsSM4aZc2kRKAnVQX v sHcldAYuQsVtq9poSJThTDkfL H8xuMstP7ExkUS2FJMgg5k2Ba 22Q82dH4IgvNV+QVXnyXY3wQX 0 sQ2pWaLiRaS2KUeoP394YgFxr XHnDwaou6vts9benAu2PuB7IV OmsfDssOjhLWC7z8PtYf37Y61 s IHdpZHRoPSIxNSUiIHZhbGlnb s3ecU1dKj6+TBDcrPK8pOD8pG 8mMhDbFyT4DPlvN320RzGewNC v Dzwfs2qsg3qfcRf5FnWuZHRsi jIhtDziORZ7h3LtMw29C7PjdW tcq7LkOow1vj69nIUuv9E6xPF 9 S4EkYZCsslhrgXEmvHbbWN5yU MTxubgpXLQscW5iSEBsT9c1Tj HkExQ9DGyrH1XwfyB4TYLlmTV g GFTtyEVIkL5dnojpi9bvecpwL fJxOFTzUPz4BEh4CUXpjAekHw DdMJT4TqK1RWY9jRPspS9xyLt n nhpyzU6zWec+GVA9uDRweSBRQ K5kEitzqZM+EDCfAAX7vWwdIR qjYAWrnL3rDLVyB0q6JlRsGsP 1 BYwnQ5TtwrS5NQGvaVJbUXMns SCZdO7htuxgm1bxwpbwMiOuCH LuPYo0CUl3JYEfhIxyJcIlWVO 0 PlK7JQM3nXImlH5joKwwkolmd G9wOyc+PrscbCwlMAH3BUk5I9 UiLee2OVSswEekYH3cxEFeBJt u Hg8gpEwbtGnsLJ0mJJOymxtax 664IfLbq0qgATMqrIOkRJjqEU S0W59zo5R5WVOxARVwDND6qUK 4 mM0piKynuzcdtKBtbEmymxVte WtiPZgfFZaeL938AHTzuXedDr KuIHp3O7GfGqp9KYSssYazDI1 n hRNsQJojBg1cwGdgqFhsON7vC NBtwoudu145InEth8jmYZQhnN VoGGjkKPJ1I23sr3E2SPVcZPE w XTF6oUA7lV3bbWcotgkonUMqy ScjvvZssFleIRvnSThsA874FD IwlEmvXwKzyRh1J0KlJar0DLJ z gJoxPG6eoUCsBLkgEp1klPabx LjsBL5pCSAtihusg803JkEmx8 zdWCIusBWmWWtmKYW5D58ek0L 6 IXQdLRTtRHY6xLH3qG9giNmsq jogbGVmdDsgdmVydGljYWwtYW zuL427VXMphEisVeDxlXmzsaF g VVqkIDh4A7RkYjkrlVE+PC90Y MVtRY54jFDvgSCky5fcjQi4Nx YnPCOnCGK9rMzzNKacb3PlABE t S26xzSGat1Z4QCFizKssvDNdB mHrnUO6sS0zCWxdgqkup2euie xiUpjqu3gycg75kN29C61jADe p RRMkTNKfUWKcHCSchKxhfm2uv G9wIi8+QCNxmDZ1eUK8uL9eGY VeRaS8VQylE832HuHvgHRoCkd j c4wat6iknBs6OyC3KPAufbGrk UkwVWG7z1FaJf69Q90bOGjhMG JcNPLpLPHxJYNwtTomla4ydN2 w Ii8+AJYwyYW0gTU6gS8wEgRvC oX9RMeqM971FgEdgMVmVmllM2 1uY4EsjZQ+XALoIem0YNXdzMg s QI8owYVbTCzeIy2yDVT2JlAnO hVuLKyfG7VzJXMlarbftexkaU Q1FOFvLQXkqD31Nu1kvNeqGNP w qJWUsV2vgxslx5hkukjcCbIfO FRmVDu1PXq7NSVguDykKhBoXR R9MmR7NMQ4mREtxV2hxLyhdcz g wY0kS0GdUQTnmemyFa08wC3hV kCnEnW7HEmsJji+J6HLAXkkWW SOQFsOCA8ZRKCVJT97BU89iVK g n3W7jWW4C1PkFRWzdywztajyx TO4WVSvMKLrhK53dYBmDXufIi 6ss2J6r487ABVrIWLrvU75Id6 u hLemCJRrgXQZwH4mmphwz1hoj oguOvVrHVLtSIu6CQk4AJNjfA rsHtUoIWN8NqO9OTZ1zFDgjA4 h tZiacrbctK0rLut+MDkvMjMvM Eu7RNmwwEA+QJKuRJJ9gWkvQP qrYPCvzM7oGDNfU5b6NrUpBeA 1 BMbuO8YuIMNqfvawTf44gI4kZ gSqFkP8ESxoK2BaouQ9KYXamB BgFBpeATV9O05cb7L3UFZnMFN w NSU1mTE0tL7jqThssyevfMNxg UkjsoDcaOhsNGwzVPifT174EH SegZcaQxPkBSkbKAIlFQ17AT4 8 uTYwp6I2qBH0R4JwTCXdbehcn fhezSC7NQBiBYWtoX82bQRaJJ tkTr4su9G2a422GACyJGRkfT7 7 Kb6idZruGKRerINJdT5tnhifu 6wjredvHaAdXRIrVPq8ZKd1YK YynEibGaVxDSW7VqP8YST5kZF h fW0usUymbktykS8gSrq+RmVtY JkqXN49BP68lLKdo2P6yYR9T0 CdXQAovbwcpimasBI4VXCwUFN w eI05mDDfYMnrMd2ym7L0u801X HMgAFGrrJ19Pu1kvJkmLORipX QYtO7qijrvy6tulgogVbFdUTT w MGq4HJd5GIOsbVeqDyQiVKF8L nI2LDM3uHBcfC1oaCuyvfxjmE 9wOyc+VJGeHVMek6Xss3GfGX2 0 EK02T1OwHpkjcLVjlMC+PHRhY mxlIHdpZHRoPScxMDAlJyBzdH kyNL8lQq5aORSfEVQnqKbgnJA l NzGaw0dnFDWhLWqtSD3ufCneQ 2PbdZB1IZSed2x6Ke60P71yI1 JvdXA+YLIveXT1jTZ1aN8xNoU l UfK2JHezX387JbHkdEBlRhflc 7kmq1qizYt4PpPuTKJaivVfuK xyTDA5i1CfRa60F30dMLwwLOY o WXZsJSNvORYdiMppia0odX6bA i8+GCVbrZA9yEG6yH6uPlNsCw W0QYijN080LeRovBXtXqdzU19 s G1AudTQ+XMVcFff0DKFlnRshP D9woEXcXImeKk7wAST7JqQcZq DjRXqlM8EqBVEivhbfknlizMH 6 MSEuAEAzfU31Sq1dkAkvFv9cD QDiKGK4MYQplKMoH4MlnO6rAm XjZDApCYDmJ1UwuAShQXmbO53 6 VLouYzF5UKXvakMkP4EmGWBmt UicSiC4y8O0Bg8FmSotxZDjXX 7pUkEkSRl7G0GgFku2GJCftDl s NI0hjTNdQTkhJn7pyXqgyYjdR C3gWGXltwkqc532HuMww3tfCV OxdUIoVJqaLCV5Q66to8K2FYX w ERWhJZK6bWX9sL6zhHqpinjoh GVmdDsgdmVydGljYWwtYWxpZ2 35NVCoiExsRsANQdj9H5OwLrs 0 JSLcnIprOY1gmRLrLBbqMn2yw BqhyMmiLP7yTCMofbfpj379Cb Yfb0nrTBZrnQFdYXufKHZ7E94 s f9C7WJWbWUVqWJI3xGX0hO3ho GlnbjogbGVmdDsgdmVydGljYW aeHSrbD892JKNlaZdlOm9DCwq 8 C4KgEwk3XMUygOwdZY3ypHVdU TxkWl4xqLztmFdgFX7wCDCjow fzm003BaXyw9xiTYSmxBQdGAe t JIP2A67vo0E8BKLiZCSqOPG6x YE0cQ8aeEeebxzphVLlwPshjt AipJpuGJhyEAskA468QUIqvWe n PlBheWVyOjwvdGQ+DO24ks22I 7GxYgebCsj5NVUkYWN2pNL0zB 0tROAaMSfut2F0cCY4F8SohbT l yw9rc2seTPSbD (more content not included)... Normal [facility] Patient Educationon 02-21-20 Patient Education Obstetrics [...] this condition includes: ? Antibiotic medicine. ? Dwom-htj-jycbhqd medicines to treat discomfort. ? Drinking enough [...] these instructions at home: Medicines ? Take sfud-ngo-pjxnxbf and prescription medicines only as told by [...] with voice recognition artificial intelligence software, specifically [employer], [employer] and or [employer]. Substitutions may have occurred due to the [...] yes avoids baths/hot tubs yes avoids scented [employer] products yes urinates after sexual activity yes [...] of patients. (more content not included)... Normal [facility] Comment on above: Result Comment: [...] Locations R1: This test was performed at: [facility], [address] [place] [address], [address] , [place], Normal [facility] Comment on above: Performed By: #### 2 [id number] #### [facility] [address] [place] [address] Lab Reportson 02-17-2024 Lab Reports [id number]#[id number] Normal [facility] RAD - Ultrasound Reporton RAD - Ultrasound Report [id number]#1.00TIFF Normal [facility] Screenson 02-17-2024 Screens [id number]#1.00TIFF Normal [facility] URINALYSISOrdered By: SYSTEM SYSTEM on 02-16-2024 Bilirubin Ql (U) Negative Normal Negativemg/ dL [facility] UA Auto SS Clarity (U) Clear (02/16/24 10:01 AM) Normal Clear [facility] UA Auto SS Color (U) Light-Yellow 1 (02/16/24 10:01 AM) Normal Yellow [facility] UA Auto SS Comment on above: Interpretive Data: M icroscopic readings are only performed on those samples that meet specific criteria set forth by [facility]. Epithelial cells.squamous Auto (Urine sed) [#/Area] 0-2 graded/HPF Invalid Interpretation Code [facility] UA Auto SS Glucose Ql (U) Negative [...] AM) Invalid Interpretation Code 5.0 - 9.0 [facility] UA Auto SS Protein Ql (U) Negative Normal Negativemg/ dL [facility] UA Auto SS RBC Ql (U) 0-3 graded/HPF Normal 0-3graded/H PF [facility] UA Auto SS Specific gravity (U) [Rel density] 1.021 *NA* (02/16/24 10:01 AM) Invalid Interpretation Code 1.005 - 1.030 [facility] UA Auto SS Urobilinogen (U) [Mass/Vol] Negative Normal Negativemg/ dL [facility] UA Auto SS WBC Auto (Urine sed) [#/Area] 0-5 graded/HPF Normal 0-5graded/H PF [facility] UA Auto SS URINALYSISOrdered By: Kimberly Santos on 02-16-2024 UA Spec Desc Clean Catch (02/16/24 10:01 AM) Normal [facility] UA Auto SS Urinalysis with Microon 02-03 Bilirubin Ql (U) Negative Normal Negative [facility] Comment on above: Performed By: #### 4 [id number] #### [facility] [address] [place] [address] Clarity (U) Clear Normal Clear [facility] Comment on above: Performed By: #### 4 [id number] #### [facility] [address] [place] [address] Color (U) Light-Yellow Normal Yellow [facility] Comment on above: Result Comment: Micr oscopic readings are only performed on those samples that meet specific criteria set forth by [facility]. Performed By: #### 4 [id number] #### [facility] [address] [place] [address] Epithelial cells.squamous Auto (Urine sed) [#/Area] 0-2 Invalid Interpretation Code [facility] Comment on above: Performed By: #### 4 [id number] #### [facility] [address] [place] [address] Glucose Ql (U) Negative Normal Negative [facility] Comment on above: Performed By: #### 4 [id number] #### [facility] [address] [place] [address] Hemoglobin Auto test strip (U) [Mass/Vol] 1+ mg/dL Abnormal Negative [facility] Comment on above: Performed By: #### 4 [id number] #### [facility] [address] [place] [address] Ketones Auto test strip Ql (U) Negative Normal Negative [facility] Comment on above: Performed By: #### 4 [id number] #### [facility] [address] [place] [address] Leukocyte esterase Auto test strip Ql (U) 75 Morgan/uL Abnormal Negative [facility] Comment on above: Performed By: #### 4 [id number] #### [facility] [address] [place] [address] Mucus Auto Ql (U) Trace Normal Negative [facility] Comment on above: Performed By: #### 4 [id number] #### [facility] [address] [place] [address] Nitrite Auto test strip Ql (U) Negative Normal Negative [facility] Comment on above: Performed By: #### 4 [id number] #### [facility] [address] [place] [address] pH (U) 5.5 [pH] Invalid Interpretation Code 5.0-9.0 [facility] Comment on above: Performed By: #### 4 [id number] #### [facility] [address] [place] [address] Protein Ql (U) Negative Normal Negative [facility] Comment on above: Performed By: #### 4 [id number] #### [facility] [address] [place] [address] RBC Ql (U) 0-3 Normal 0-3 [facility] Comment on above: Performed By: #### 4 [id number] #### [facility] [address] [place] [address] Specific gravity (U) [Rel density] 1.021 Invalid Interpretation Code 1.005-1.030 [facility] Comment on above: Performed By: #### 4 [id number] #### [facility] [address] [place] [address] Urobilinogen (U) [Mass/Vol] Negative Normal Negative [facility] Comment on above: Performed By: #### 4 [id number] #### [facility] [address] [place] [address] WBC Auto (Urine sed) [#/Area] 0-5 Normal 0-5 [facility] Comment on above: Performed By: #### 4 [id number] #### [facility] [address] [place] [id number] Type of Urine collection method Clean Catch Normal [facility] Comment on above: Performed By: #### 4 [id number] #### [facility] [address] [id number] Office Visiton 02-15-2024 Follow-up visit [id number] Arielle Cardoso 1970 F Date Provider Department Center 02/15/2024 94838-FAEWYAEDISON KINCAID MICHAEL Con[facility] Family History Problem Relation Age of Onset Heart attack Father Family Status - Relation Status Age at Father Level of Service:86844 ME OFFICE/OUTPATIENT NEW MODERATE MDM 45 MINUTES Normal [facility] ANES POSTPROC EVALon 023 ANES POSTPROC EVAL HNO ID: [id number] Author: Carlota Jeffrey MD Service: ? 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 Author [...] August 25, 2023 TIME: 11:46 AM CSN: [id number] Normal [facility] HISTORY PHYSICALon 3 HISTORY PHYSICAL HNO ID: [id number] Author: Gavi Bourgeois MD Service: General Surgery [...] patient's care with the resident. Signature: Marques Bradlye MD Date: 08/26/2023 Time: 9:38 AM ----- [...] DATE: August 25, 2023 TIME: 6:57 AM [facility] NURSING PROGon 08-25-2023 NURSING PROG HNO ID: [id number] Author: Melody Walter RN Service: Nursing Author [...] None Electronically Signed By: Melody Walter RN [facility] NURSING PROG HNO ID: [id number] Author: Pamela Osuna RN Service: ? Author [...] By: Pamela Navarro RN In Department: GASTROENTEROLOGY [facility] Magda 07-22-2023 [facility] Telephone ([employer]) ----- CONSTANTINO CARDOSO ([id number]) 1970 F Date Time Provider Department 07/22/23 [...] Encounter Status:Closed by EVELYN BLACK on 07/22/23 [facility] ANES POSTPROC EVALon 023 ANES POSTPROC EVAL HNO ID: [id number] Author: Sly Carter MD Service: ? Author [...] July 14, 2023 TIME: 12:26 PM CSN: [id number] Normal [facility] ANES PRE-OPon 07-14-2023 ANES PRE-OP HNO ID: [id number] Author: Sly Carter MD Service: ? Author [...] none. Vitals Value Taken Time BP 137/87 07/14/2334 Pulse 66 07/14/23833 Resp Temp 36.4 ?C [...] July 14, 2023 TIME: 9:11 AM CSN: [id number] Normal [facility] EGD - THERAPEUTIC, EUS, OR T UBE INTERVENTIONSon 07-14-2023 [facility] HISTORY PHYSICALon HISTORY PHYSICAL HNO ID: [id number] Author: Raúl Quintero MD Service: General Surgery [...] medications for this visit. REVIEW OF SYSTEMS: ROAD MARKER: Negative for CVA, Negative for TIA Respiratory: [...] July 14, 2023 TIME: 9:40 AM Normal [facility] NURSING PROGon 07-14-2023 NURSING PROG HNO ID: [id number] Author: Mónica Spaulding RN Service: Nursing Author Type: Registered Nurse Type: Nursing Progress Note Filed: 07/14/2023 11:21 AM Note Text: 1121: Dr. Mehrdad Carter paged : Patient Constantino Cardoso in post bed 10: Complaining of 10/10 abdominal pain (gas), mild nausea. Any further orders? Thanks! Mari Spaulding RN BSN Normal [facility] NURSING PROG HNO ID: [id number] Author: Mónica Spaulding RN Service: Nursing Author [...] Signed By: Mónica Spaulding RN BSN Normal [facility] NURSING PROG HNO ID: [id number] Author: Candace Jaramillo RN Service: ? Author [...] Candace Jaramillo RN In Department: GASTROENTEROLOGY Normal [facility] SURGICAL PATHOLOGYon 023 ADDENDUM 1: Normal [facility] Comment on above: Order Comment: Speci men Type: TISSUE SPECIMENOrdering Facility: [facility] Address: [address] [place], [place] [id number] Result Comment: Give n the background of chronic gastritis a Helicobacter pylori immunostain was performed on block A and is negative for Helicobacter pylori organisms. AEB 07/20/2023 Laboratory Developed Test (LDT) Disclaimer: Performance characteristics of immunohistochemical, immunofluorescent and chromogenic in-situ hybridization tests have been determined by the performing laboratory within [facility]???s [facility] [place] ([facility], [facility], [facility], [facility], [facility], [facility], or [facility]) in a manner consistent with CLIA [...] at 9:30 AM Performed By: #### S ####[facility] LABCLIA [id number] [place] [address] [place] CASE REPORT Normal [facility] Comment on above: Order Comment: Speci men Type: TISSUE SPECIMENOrdering Facility: [facility] Address: [address] [place] [address] Result Comment: Surg [facility] Pathology Report Case: [id number] Authorizing Provider: Marques Bradley MD Collected: 07/14/2023 10:42 AM Ordering Location: Gastroenterology Received: 07/14/2023 07:34 PM Pathologist: Pepper Zacarias MD Specimen: STOMACH BIOPSY, R/O H.Pylori Performed By: #### S ####[facility] LABCLIA [id number] [address] STATES [place] DIAGNOSIS COMMENT Immunohistochemical stain for Helicobacter pylori is pending and will be reported as an addendum. Normal [facility] Comment on above: Order Comment: Speci men Type: TISSUE SPECIMENOrdering Facility: [facility] Address: [address] [place] [address] Performed By: #### S ####[facility] LABCLIA [id number] [address] STATES OF [facility] FINAL DIAGNOSIS Normal [facility] Comment on above: Order Comment: Speci men Type: TISSUE SPECIMENOrdering Facility: [facility] Address: [address] [place] [address] Result Comment: Velma scott, biopsy: - Chronic inactive gastritis. See comment. AEB/dkclementina 07/18/2023 Performed By: #### S ####[facility] LABCLIA [id number] [address] [place] FINAL PERFORMING LAB Normal [facility] Comment on above: Order Comment: Speci men Type: TISSUE SPECIMENOrdering Facility: [facility] Address: [address] [place] [address] Result Comment: Diag nostic interpretation performed at [facility], [address] [place] [address] CLIA# [id number] [employer] Job Titles: Maurisio Ritchie M.D. Performed By: #### S ####[facility] [id number] [address] OF [place] GROSS DESCRIPTION Normal [facility] Comment on above: Order Comment: Speci men Type: TISSUE SPECIMENOrdering Facility: [facility] Address: [address] [place] [address] Result Comment: A. S TOMACH BIOPSY Received in formalin are two pieces of hager, soft tissue aggregating to 0.5 x 0.2 x 0.2 cm. Totally submitted in one cassette. Two Gross examination performed at [facility], [address] [place] [address] July 14, 2023 11:10 PM Performed By: #### S ####[facility] [id number] [address] [place] Magda 05-27-2023 CNPN Telephone (GENBMI) ----- CONSTANTINO CARDOSO ([id number]) 1970 F Date Time Provider Department 05/27/23 EVELYN BLACK During your visit today, we recorded the following information about you: Evelyn Black, VICKY 05/27/2023 9:45 AM Signed BMI SPECIALTY C[facility] GA[facility]IC E[facility]IDon 05-26-2023 [place] GASTRIC EMPTYING SOLID * * *Final Report* * * DATE OF EXAM: May 26 2023 11:11AM [facility] 0017 - [place] GASTRIC EMPTYING SOLID / PROCEDURE REASON: Nausea [...] RATE OF GASTRIC EMPTYING OF SOLID MEAL. Computer Forensics Examiner: MELINDA Transcribe Date/Time: May 26 2023 11:18A Dictated by : SILVANO WELSH MD This examination was interpreted and the report reviewed and electronically signed by: SILVANO WELSH MD on May 26 2023 11:18AM EST [id number] Normal [facility] CNNURSEon 05-25-2023 CNNURSE Nurse Visit (GASTMN) ----- CONSTANTINO CARDOSO ([id number]) 1970 F Date Time Provider Department 05/25/23 8:30 AM NURSE GI LAB 2 GASTMN During your visit today, we recorded the following information about you: Pedro Gonzalez LPN 05/25/2023 4:15 PM Signed Name: Constantino Cardoso CC#: [id number] Date: 05/25/2023 ESOPHAGEAL MANOMETRY TEST Indication: Nausea [...] .Pedro Gonzalez LPN Referring Provider: MARQUES BRADLEY [[id number]] Allergies As of Date: 05/25/2023 Noted Allergy Reaction FLEXERIL (CYCLOBENZAPRINE) 04/28/2018 7 - Swelling PENICILLIN 04/28/2018 7 - Swelling Date Reviewed: 05/06/2023 Reviewed by: Judy Michaels MA - Fully Assessed Reason for Visit: Procedure [88] Cmt: Manometry Esophageal Visit Diagnosis:Nausea [R11.0] Order(s):MANOMETRY ESOPHAGEAL [21263SKR] Order #: [id number] Prescriptions as of 05/25/2023 - dicyclomine (BENTYL) [...] Encounter Status:Closed by PEDRO GONZALEZ on 05/25/23 [facility] Tele[facility] (GENBMI) ----- CONSTANTINO CARDOSO ([id number]) 1970 F Date Time Provider Department 05/16/23 [...] Encounter Status:Closed by EVELYN BLACK on 05/16/23 [facility] CNOVon 05-06-2023 CNOV Office Visit (GENBMI ) ----- CONSTANTINO CARDOSO ([id number]) 1970 F Date Time Provider Department 05/06/23 [...] for internal providers or letter via the [employer] for external providers. Chief Complaint: dysphagia [...] Time: 8:15 AM Referring Provider: IMER CHERRY [[id number]] Allergies As of Date: 05/06/2023 Noted Allergy Reaction (more content not included)... Normal [facility] CNPNon 05-02-2023 CNPN Telephone (GENBMI) ----- CONSTANTINO CARDOSO ([id number]) 1970 F Date Time Provider Department 05/02/23 EVELYN BLACK GENBMI During your visit today, we recorded the following information about you: Evelyn Black, RN 05/04/2023 1:55 PM Addendum BMI SPECIALTY CARE COORDINATION TELEPHONE ENCOUNTER Chief complaint AND duration dysphagia. Type of procedure: hernia repair hiatal with Dr. MORTENSEN in [place] February of 2019. Sending OP notes Nursing assessment (subjective/objective) . pain in chest area and getting worse, hard to breathe c/o nausea and oral intolerance, using miralax for BM Went to [place] [facility] March 2023 who told her she needed a stent in her heart..but her c/o were difficulty swallowing and sent pt home and referred her to [facility] and was admitted for almost a [...] HHR a year later @ OSH in [place] Recommendation: appt after records obtained, encouraged small [...] Encounter Status:Closed by EVELYN BLACK on 05/02/23 [facility] 04-26-2023 CNPN Telephone (GENBMI) ----- CONSTANTINO CARDOSO ([id number]) 1970 F Date Time Provider Department 04/26/23 [...] Encounter Status:Closed by EVELYN BLACK on 04/26/23 [facility] 04-18-2023 CNPN Telephone (GENBMI) ----- WALKERARIELLECHRIS ([id number]) 1970 F Date Time Provider Department 04/18/23 [...] Ma - Fully Assessed Reason for Visit: Review Manager - Other [3602] Prescriptions as of [...] Encounter Status:Closed by EVELYN BLACK on 04/18/23 [facility] 04-07-2023 CNPN Telephone (GASTSP) ----- CONSTANTINO CARDOSO ([id number]) 1970 F Date Time Provider Department 04/07/23 [...] Status:Closed by YANCY LOPEZ on 04/07/23 Normal [facility] Alanine aminotransferase [En zymatic activity/volume] in Serum or PlasmaOrdered By: Pete Thakkar on 03-23-2023 ALT [Catalytic activity/Vol] 11 U/L 7-52 [facility] Albumin [Mass/volume] in Ser um or Plasma by Bromocresol green (BCG) dye binding methoOrdered By: Pete Thakkar on 03-23-2023 Albumin BCG dye [Mass/Vol] 4.1 g/dL 3.5-5.7 [facility] Alkaline phosphatase [Enzyma tic activity/volume] in Serum or PlasmaOrdered By: Pete Thakkar on 03-23-2023 ALP [Catalytic activity/Vol] 115 U/L 34-104 [facility] Aspartate aminotransferase [ Enzymatic activity/volume] in Serum or PlasmaOrdered By: Pete Thakkar on 03-23-2023 AST [Catalytic activity/Vol] 15 U/L 13-39 [facility] Automated erythrocytes count in urine sediment (number/area)Ordered By: Pete Thakkar on 03-23-2023 RBC Auto (Urine sed) [#/Area] 0-1 [HPF] 0-4 [facility] Automated leukocytes count i n urine sediment (number/area)Ordered By: Pete Thakkar on 03-23-2023 WBC Auto (Urine sed) [#/Area] 0-1 [HPF] 0-4 [facility] Basophils Auto (Bld) [#/Vol] Ordered By: Pete Thakkar on 03-23-2023 Basophils (Bld) [#/Vol] 0.1 10*3/uL 0.0-0.2 [facility] Basophils/100 WBC Auto (Bld) Ordered By: Pete Thakkar on 03-23-2023 Basophils/100 WBC (Bld) 1.0 % . [facility] Bilirubin Test strip Ql (U)O rdered By: Pete Thakkar on 03-23-2023 Bilirubin Ql (U) Negative Negative [facility] Bilirubin.direct [Mass/volum e] in Serum or PlasmaOrdered By: Pete Thakkar on 03-23-2023 Bilirubin.direct [Mass/Vol] 0.10 mg/dL 0.03-0.18 [facility] Bilirubin.total [Mass/volume ] in Serum or PlasmaOrdered By: Pete Thakkar on 03-23-2023 Bilirubin [Mass/Vol] 0.3 mg/dL 0.3-1.0 [facility] Calcium [Mass/volume] in Ser um or PlasmaOrdered By: Pete Thakkar on 03-23-2023 Calcium [Mass/Vol] 9.0 mg/dL 8.6-10.3 [facility] Carbon dioxide, total [Moles /volume] in Serum or PlasmaOrdered By: Pete Thakkar on 03-23-2023 CO2 [Moles/Vol] 24.5 mmol/L 21.0-31.0 [facility] Chloride [Moles/volume] in S cristine or PlasmaOrdered By: Pete Thakkar on 03-23-2023 Chloride [Moles/Vol] 111 mmol/L 98-107 [facility] Color Auto (U)Ordered By: Shoaib Thakkar on 03-23-2023 Color (U) Yellow Yellow [facility] Creatinine [Mass/volume] in Serum or PlasmaOrdered By: Pete Thakkar on 03-23-2023 Creatinine [Mass/Vol] 0.72 mg/dL 0.60-1.20 [facility] Eosinophils Auto (Bld) [#/Vo l]Ordered By: Pete Thakkar on 03-23-2023 Eosinophils (Bld) [#/Vol] 0.3 10*3/uL 0.0-0.45 [facility] Eosinophils/100 WBC Auto (Bl d)Ordered By: Pete Thakkar on 03-23-2023 Eosinophils/100 WBC (Bld) 5.0 % . [facility] Erythrocyte distribution wid th Auto (RBC) [Ratio]Ordered By: Pete Thakkar on 03-23-2023 Erythrocyte distribution width (RBC) [Ratio] 13.6 % 11.9-15.3 [facility] Globulin Calc (S) [Mass/Vol] Ordered By: Pete Thakkar 03-23-2023 Globulin (S) [Mass/Vol] 2.9 g/dL [facility] Glucose [Mass/volume] in Ser um or PlasmaOrdered By: Pete Thakkar on 03-23-2023 Glucose [Mass/Vol] 79 mg/dL 70-100 [facility] Comment on above: ADA recommended refe rence rangeRandom Glucose Reference Range is dependent on time and content of last meal. Glucose of more than 200 mg/dL in a nonstressed, ambulatory subject supports the diagnosis of Diabetes Mellitus. Hematocrit Auto (Bld) [Volum e fraction]Ordered By: Pete Thakkar on 03-23-2023 Hematocrit (Bld) [Volume fraction] 35.7 % 34.0-46.4 [facility] Hemoglobin [Mass/volume] in BloodOrdered By: Pete Thakkar on 03-23-2023 Hemoglobin (Bld) [Mass/Vol] 12.0 g/dL 11.8-15.4 [facility] Ketones Auto test strip (U) [Mass/Vol]Ordered By: Pete Thakkar on 03-23-2023 Ketones (U) [Mass/Vol] Negative Negative [facility] Laboratory - UrinalysisOrder ed By: Pete Thakkar on 03-23-2023 Hyaline casts LM Ql (Urine sed) None seen [LPF] 0-8 [facility] Leukocytes [#/volume] correc jun for nucleated erythrocytes in Blood by Automated counOrdered By: Pete Thakkar on 03-23-2023 WBC corrected for nucl RBC Auto (Bld) [#/Vol] 6.3 10*3/uL 3.8-11.6 [facility] Lipase [Enzymatic activity/v olume] in Serum or PlasmaOrdered By: Pete Thakkar on 03-23-2023 Lipase [Catalytic activity/Vol] 32.0 U/L 11.0-82.0 [facility] Lymphocytes Auto (Bld) [#/Vo l]Ordered By: Pete Thakkar on 03-23-2023 Lymphocytes (Bld) [#/Vol] 2.3 10*3/uL 1.00-4.8 [facility] Lymphocytes/100 WBC Auto (Bl d)Ordered By: Pete Thakkar on 03-23-2023 Lymphocytes/100 WBC (Bld) 36.1 % . [facility] MCH Auto (RBC) [Entitic mass ]Ordered By: Pete Thakkar on 03-23-2023 MCH (RBC) [Entitic mass] 29.2 pg 24.7-34.3 [facility] MCHC Auto (RBC) [Mass/Vol]Or dered By: Pete Thakkar on 03-23-2023 MCHC (RBC) [Mass/Vol] 33.7 g/dL 32.0-35.0 [facility] MCV Auto (RBC) [Entitic vol] Ordered By: Pete Tahkkar on 03-23-2023 MCV (RBC) [Entitic vol] 86.7 fL 80-100 [facility] Monocyte distribution width [Entitic volume] in Blood by AutomatedOrdered By: Pete Thakkar on 03-23-2023 Monocyte distribution width Auto (Bld) [Entitic vol] 16.44 % 0.00-20.00 [facility] Monocytes Auto (Bld) [#/Vol] Ordered By: Pete Thakkar on 03-23-2023 Monocytes (Bld) [#/Vol] 0.5 10*3/uL 0.0-0.8 [facility] Monocytes/100 WBC Auto (Bld) Ordered By: Pete Thakkar on 03-23-2023 Monocytes/100 WBC (Bld) 7.7 % . [facility] Neutrophils Auto (Bld) [#/Vo l]Ordered By: Pete Thakkar on 03-23-2023 Neutrophils (Bld) [#/Vol] 3.2 10*3/uL 1.8-7.7 [facility] Neutrophils/100 WBC Auto (Bl d)Ordered By: Pete Thakkar on 03-23-2023 Neutrophils/100 WBC (Bld) 50.2 % . [facility] Nitrite Test strip Ql (U)Ord ered By: Pete Thakkar on 03-23-2023 Nitrite Ql (U) Negative Negative [facility] No Panel InformationOrdered By: Pete Thakkar on 03-23-2023 Estimated GFR (CKD-EPI) > 60.0 mL/Min [facility] Creatinine Clearance (Chem 105.27 [facility] Nucleated erythrocytes [Pres ence] in Blood by Automated countOrdered By: Pete Thakkar on 03-23-2023 Nucleated RBC Auto Ql (Bld) 0.1 /100{WBC} 0-0.5 [facility] Platelet mean volume Auto (B ld) [Entitic vol]Ordered By: Pete Thakkar on 03-23-2023 Platelet mean volume (Bld) [Entitic vol] 7.6 fL 6.3-10.7 [facility] Platelets Auto (Bld) [#/Vol] Ordered By: Pete Thakkar on 03-23-2023 Platelets (Bld) [#/Vol] 357 10*3/uL 150-450 [facility] Potassium [Moles/volume] in Serum or PlasmaOrdered By: Pete Thakkar on 03-23-2023 Potassium [Moles/Vol] 3.6 mmol/L 3.5-5.1 [facility] Protein Auto test strip (U) [Mass/Vol]Ordered By: Pete Thakkar on 03-23-2023 Protein (U) [Mass/Vol] Negative Negative [facility] Protein [Mass/volume] in Ser um or PlasmaOrdered By: Pete Thakkar on 03-23-2023 Protein [Mass/Vol] 7.0 g/dL 6.4-8.9 [facility] RBC Auto (Bld) [#/Vol]Ordere d By: Pete Thakkar on 03-23-2023 RBC (Bld) [#/Vol] 4.12 10*6/uL 3.60-5.00 [facility] Serum or plasma albumin/glob ulin mass ratioOrdered By: Pete Thakkar on 03-23-2023 Albumin/Globulin [Mass ratio] 1.4 {ratio} [facility] Serum or plasma anion gap de terminationOrdered By: Pete Thakkar on 03-23-2023 Anion gap [Moles/Vol] 10.1 mmol/L 6.0-15.0 [facility] Serum or plasma non-glucuron idated bilirubin measurement (mass/volume)Ordered By: Pete Thakkar on 03-23-2023 Bilirubin.indirect [Mass/Vol] 0.2 mg/dL [facility] Sodium [Moles/volume] in Ser um or PlasmaOrdered By: Pete Thakkar on 03-23-2023 Sodium [Moles/Vol] 142 mmol/L 136-145 [facility] Specific gravity Auto test s trip (U) [Rel density]Ordered By: Pete Thakkar on 03-23-2023 Specific gravity (U) [Rel density] 1.048 1.001-1.030 [facility] Squamous epithelial cells de tection in urine sediment by light microscopyOrdered By: Pete Thakkar on 03-23-2023 Epithelial cells.squamous LM Ql (Urine sed) None seen [HPF] 0-2 [facility] Troponin I.cardiac [Mass/vol ume] in Serum or Plasma by Detection limit <= 0.01 ng/Ordered By: Pete Thakkar on 03-23-2023 Troponin I.cardiac DL <= 0.01 ng/mL [Mass/Vol] 12.2 pg/mL 0.0-15.0 [facility] Urea nitrogen [Mass/volume] in Serum or PlasmaOrdered By: Pete Thakkar on 03-23-2023 Urea nitrogen [Mass/Vol] 24 mg/dL 7-25 [facility] Urine bacteria detection by automated methodOrdered By: Pete Thakkar on 03-23-2023 Bacteria Auto Ql (U) 1+ None Seen [facility] Urine clarity by refractomet ry automatedOrdered By: Pete Thakkar on 03-23-2023 Clarity Refractometry automated (U) Clear Clear [facility] Urine glucose measurement by automated test strip (mass/volume)Ordered By: Pete Thakkar on 03-23-2023 Glucose Auto test strip (U) [Mass/Vol] Normal mg/dL Normal [facility] Urine hemoglobin detection b y automated test stripOrdered By: Pete Thakkar on 03-23-2023 Hemoglobin Auto test strip Ql (U) Trace Negative [facility] Urine leukocyte esterase det ection by automated test stripOrdered By: Pete Thakkar on 03-23-2023 Leukocyte esterase Auto test strip Ql (U) Negative Negative [facility] Urobilinogen Auto test strip (U) [Mass/Vol]Ordered By: Pete Thakkar on 03-23-2023 Urobilinogen (U) [Mass/Vol] Normal mg/dL Normal [facility] WBC Auto (Bld) [#/Vol]Ordere d By: Pete Thakkar on 03-23-2023 WBC (Bld) [#/Vol] 6.3 10*3/uL 3.8-11.6 [facility] pH Auto test strip (U)Ordere d By: Pete Thakkar on 03-23-2023 pH (U) 5.0 [pH] 5.0-9.0 [facility] Activated partial thrombopla stin time (aPTT) in platelet poor plasma by coagulation aOrdered By: Conner Griffith on 02-15-2023 aPTT Coag (PPP) [Time] 37.0 s 25.1-36.5 [facility] Alanine aminotransferase [En zymatic activity/volume] in Serum or PlasmaOrdered By: Conner Griffith on 02-15-2023 ALT [Catalytic activity/Vol] 13 U/L 7-52 [facility] Albumin [Mass/volume] in Ser um or Plasma by Bromocresol green (BCG) dye binding methoOrdered By: Conner Griffith on 02-15-2023 Albumin BCG dye [Mass/Vol] 4.3 g/dL 3.5-5.7 [facility] Alkaline phosphatase [Enzyma tic activity/volume] in Serum or PlasmaOrdered By: Conner Griffith on 02-15-2023 ALP [Catalytic activity/Vol] 124 U/L 34-104 [facility] Aspartate aminotransferase [ Enzymatic activity/volume] in Serum or PlasmaOrdered By: Conner Griffith on 02-15-2023 AST [Catalytic activity/Vol] 15 U/L 13-39 [facility] Basophils Auto (Bld) [#/Vol] Ordered By: Conner Griffith on 02-15-2023 Basophils (Bld) [#/Vol] 0.0 10*3/uL 0.0-0.2 [facility] Basophils/100 WBC Auto (Bld) Ordered By: Conner Griffith on 02-15-2023 Basophils/100 WBC (Bld) 0.6 % . [facility] Bilirubin.direct [Mass/volum e] in Serum or PlasmaOrdered By: Conner Griffith on 02-15-2023 Bilirubin.direct [Mass/Vol] 0.00 mg/dL 0.03-0.18 [facility] Comment on above: If the DBIL is less than 0.1, IBIL is not able to becalculated. Bilirubin.total [Mass/volume ] in Serum or PlasmaOrdered By: Conner Griffith on 02-15-2023 Bilirubin [Mass/Vol] 0.4 mg/dL 0.3-1.0 [facility] Calcium [Mass/volume] in Ser um or PlasmaOrdered By: Connre Griffith on 02-15-2023 Calcium [Mass/Vol] 9.3 mg/dL 8.6-10.3 [facility] Carbon dioxide, total [Moles /volume] in Serum or PlasmaOrdered By: Conner Griffith on 02-15-2023 CO2 [Moles/Vol] 25.3 mmol/L 21.0-31.0 [facility] Chloride [Moles/volume] in S cristine or PlasmaOrdered By: Conner Griffith on 02-15-2023 Chloride [Moles/Vol] 106 mmol/L 98-107 [facility] Creatinine [Mass/volume] in Serum or PlasmaOrdered By: Conner Griffith on 02-15-2023 Creatinine [Mass/Vol] 0.77 mg/dL 0.60-1.20 [facility] Eosinophils Auto (Bld) [#/Vo l]Ordered By: Conner Griffith on 02-15-2023 Eosinophils (Bld) [#/Vol] 0.2 10*3/uL 0.0-0.45 [facility] Eosinophils/100 WBC Auto (Bl d)Ordered By: Conner Griffith on 02-15-2023 Eosinophils/100 WBC (Bld) 4.0 % . [facility] Erythrocyte distribution wid th Auto (RBC) [Ratio]Ordered By: Conner Griffith on 02-15-2023 Erythrocyte distribution width (RBC) [Ratio] 13.5 % 11.9-15.3 [facility] Globulin Calc (S) [Mass/Vol] Ordered By: Conner Griffith on 02-15-2023 Globulin (S) [Mass/Vol] 3.0 g/dL [facility] Glucose [Mass/volume] in Ser um or PlasmaOrdered By: Conner Griffith on 02-15-2023 Glucose [Mass/Vol] 94 mg/dL 70-100 [facility] Comment on above: ADA recommended refe rence rangeRandom Glucose Reference Range is dependent on time and content of last meal. Glucose of more than 200 mg/dL in a nonstressed, ambulatory subject supports the diagnosis of Diabetes Mellitus. Hematocrit Auto (Bld) [Volum e fraction]Ordered By: Conner Griffith on 02-15-2023 Hematocrit (Bld) [Volume fraction] 38.4 % 34.0-46.4 [facility] Hemoglobin [Mass/volume] in BloodOrdered By: Conner Griffith on 02-15-2023 Hemoglobin (Bld) [Mass/Vol] 13.0 g/dL 11.8-15.4 [facility] Laboratory - CoagulationOrde red By: Conner Griffith on 02-15-2023 PT Coag (PPP) [Time] 11.7 s 9.0-12.9 [facility] Leukocytes [#/volume] correc jun for nucleated erythrocytes in Blood by Automated counOrdered By: Conner Griffith on 02-15-2023 WBC corrected for nucl RBC Auto (Bld) [#/Vol] 5.2 10*3/uL 3.8-11.6 [facility] Lipase [Enzymatic activity/v olume] in Serum or PlasmaOrdered By: Conner Griffith on 02-15-2023 Lipase [Catalytic activity/Vol] 19.0 U/L 11.0-82.0 [facility] Lymphocytes Auto (Bld) [#/Vo l]Ordered By: Conner Griffith on 02-15-2023 Lymphocytes (Bld) [#/Vol] 1.8 10*3/uL 1.00-4.8 [facility] Lymphocytes/100 WBC Auto (Bl d)Ordered By: Conner Griffith on 02-15-2023 Lymphocytes/100 WBC (Bld) 33.8 % . [facility] MCH Auto (RBC) [Entitic mass ]Ordered By: Conner Griffith on 02-15-2023 MCH (RBC) [Entitic mass] 29.4 pg 24.7-34.3 [facility] MCHC Auto (RBC) [Mass/Vol]Or dered By: Conner Griffith on 02-15-2023 MCHC (RBC) [Mass/Vol] 33.8 g/dL 32.0-35.0 [facility] MCV Auto (RBC) [Entitic vol] Ordered By: Conner Griffith on 02-15-2023 MCV (RBC) [Entitic vol] 86.8 fL 80-100 [facility] Monocyte distribution width [Entitic volume] in Blood by AutomatedOrdered By: Conner Griffith on 02-15-2023 Monocyte distribution width Auto (Bld) [Entitic vol] 18.21 % 0.00-20.00 [facility] Monocytes Auto (Bld) [#/Vol] Ordered By: Conner Griffith on 02-15-2023 Monocytes (Bld) [#/Vol] 0.3 10*3/uL 0.0-0.8 [facility] Monocytes/100 WBC Auto (Bld) Ordered By: Conner Griffith on 02-15-2023 Monocytes/100 WBC (Bld) 4.8 % . [facility] Neutrophils Auto (Bld) [#/Vo l]Ordered By: Conner Griffith on 02-15-2023 Neutrophils (Bld) [#/Vol] 3.0 10*3/uL 1.8-7.7 [facility] Neutrophils/100 WBC Auto (Bl d)Ordered By: Conner Griffith on 02-15-2023 Neutrophils/100 WBC (Bld) 56.8 % . [facility] No Panel InformationOrdered By: Conner Griffith on 02-15-2023 Estimated GFR (CKD-EPI) > 60.0 mL/Min [facility] Creatinine Clearance (Chem 98.01 [facility] Nucleated erythrocytes [Pres ence] in Blood by Automated countOrdered By: Conner Griffith on 02-15-2023 Nucleated RBC Auto Ql (Bld) 0.2 /100{WBC} 0-0.5 [facility] Platelet mean volume Auto (B ld) [Entitic vol]Ordered By: Conner Griffith on 02-15-2023 Platelet mean volume (Bld) [Entitic vol] 7.3 fL 6.3-10.7 [facility] Platelet poor plasma interna tional normalized ratio (INR) by coagulation assay (relatOrdered By: Conner Griffith on 02-15-2023 INR Coag (PPP) [Relative time] 1.0 {INR} [facility] Comment on above: INR Therapeutic Rang [...] 02-15-2023 Platelets (Bld) [#/Vol] 385 10*3/uL 150-450 [facility] Potassium [Moles/volume] in Serum or PlasmaOrdered By: Conner Griffith on 02-15-2023 Potassium [Moles/Vol] 3.9 mmol/L 3.5-5.1 [facility] Protein [Mass/volume] in Ser um or PlasmaOrdered By: Conner Griffith on 02-15-2023 Protein [Mass/Vol] 7.3 g/dL 6.4-8.9 [facility] RBC Auto (Bld) [#/Vol]Ordere d By: Conner Griffith on 02-15-2023 RBC (Bld) [#/Vol] 4.43 10*6/uL 3.60-5.00 [facility] Serum or plasma albumin/glob ulin mass ratioOrdered By: Conner Griffith on 02-15-2023 Albumin/Globulin [Mass ratio] 1.4 {ratio} [facility] Serum or plasma anion gap de terminationOrdered By: Conner Griffith on 02-15-2023 Anion gap [Moles/Vol] 12.6 mmol/L 6.0-15.0 [facility] Serum or plasma non-glucuron idated bilirubin measurement (mass/volume)Ordered By: Conner Griffith on 02-15-2023 Bilirubin.indirect [Mass/Vol] 0.4 mg/dL [facility] Sodium [Moles/volume] in Ser um or PlasmaOrdered By: Conner Griffith on 02-15-2023 Sodium [Moles/Vol] 140 mmol/L 136-145 [facility] Urea nitrogen [Mass/volume] in Serum or PlasmaOrdered By: Conner Griffith on 02-15-2023 Urea nitrogen [Mass/Vol] 14 mg/dL 7-25 [facility] WBC Auto (Bld) [#/Vol]Ordere d By: Conner Griffith on 02-15-2023 WBC (Bld) [#/Vol] 5.2 10*3/uL 3.8-11.6 [facility] MG MAMM SCREEN 3D MACARIO CADon 3 MG MAMM SCREEN 3D MACARIO CAD Normal [facility] ER URINE PROFILEon 3 Bilirubin Ql (U) Negative Normal NEGATIVE [facility] Comment on above: Performed By: #### E RUR ####[facility] [id number] [place], [place] [address]Dr. Tadeo Smyth Clarity (U) CLEAR Normal CLEAR [facility] Comment on above: Performed By: #### E RUR ####[facility] [id number] [place], [place] [address]Dr. Tadeo Smyth Color (U) YELLOW Normal YELLOW [facility] Comment on above: Performed By: #### E RUR ####[facility] [id number] [place], [place] [address]Dr. Tadeo Smyth ERUAHD A micrscopic examina tion will be performed if indicated. Normal [facility] Comment on above: Performed By: #### E RUR ####[facility] [id number] [place], [place] [address]Dr. Tadeo Smyth Glucose Ql (U) Negative Normal NEGATIVE [facility] Comment on above: Performed By: #### E RUR ####[facility] [id number] [place], [place] [address]Dr. Tadeo Smyth Hemoglobin Ql (U) TRACE-INTACT Abnormal NEGATIVE [facility] Comment on above: Performed By: #### E RUR ####[facility] [address] [place], [place] [address]Dr. Tadeo Smyth Ketones Ql (U) Negative Normal NEGATIVE [facility] Comment on above: Performed By: #### E RUR ####[facility] [id number] [place], [place] [address]Dr. Taedo Smyth LEUKOCYTES Negative Normal NEGATIVE [facility] Comment on above: Performed By: #### E RUR ####[facility] Wkzyjbzcex[address] [place], [place] [address]Dr. Tadeo Smyth Nitrite Ql (U) Negative Normal NEGATIVE [facility] Comment on above: Performed By: #### E RUR ####[facility] Pqqfanllit50[address] [place] [address]Dr. Tadeo Smyth pH (U) 6.0 [pH] Normal 5-9 [facility] Comment on above: Performed By: #### E RUR ####[facility] Rwjaavmzkk6411 [place] [address]Dr. Tadeo Smyth SPEC GRAVITY >=1.030 Abnormal 1.005-<=1.0 25 [facility] Comment on above: Performed By: #### E RUR ####[facility] Yqjykbcots[address] [place], [place] [address]Dr. Tadeo Smyth UA PROTEIN Negative Normal NEGATIVE/ TRACE [facility] Comment on above: Performed By: #### E RUR ####[facility] Ntkkshanxi[address] [place], [place] [address]Dr. Tadeo Smyth UR MICRO IND NOT INDICATED Normal [facility] Comment on above: Performed By: #### E RUR ####[facility] Tfpwteqsiu[address] [place], [place] [address]Dr. Tadeo Smyth Urobilinogen Qn (U) 0.2 {Benito'U}/dL Normal 0.2 - 1. 0 [facility] Comment on above: Performed By: #### E RUR ####[facility] Ccmxeprlzh[address] [place], [place] [address]Dr. Tadeo Smyth XR ABD FLAT UP_PA Kasey 11-28 XR ABD FLAT UP_PA CH Normal [facility] AMYLASEon 11-27-2022 Amylase [Catalytic activity/Vol] 63 U/L Normal 25-115 [facility] Comment on above: Performed By: #### L IPA, VIJI, CMP ####[facility] Pbwzdaorrp7[address] [place], [place] [address]Dr. Tadeo Smyth CBC AUTO DIFFon 11-27-2022 BASO # 0.0 103/ul Normal 0.0-0.1 [facility] Comment on above: Performed By: #### C BC ####[facility] Xhodljliyi[address] [place], [place] [address]Dr. Tadeo Smyth Basophils/100 WBC (Bld) 0.4 % Normal 0.2-2.0 [facility] Comment on above: Performed By: #### C BC ####[facility] Tzxpimaoyd08[address] [place], [place] [address]Dr. Tadeo Smyth EO # 0.2 103/ul Normal 0.0-0.7 [facility] Comment on above: Performed By: #### C BC ####[facility] Xpbdmojyxd7[address] [place], [place] [address]Dr. Tadeo Smyth Eosinophils/100 WBC (Bld) 2.8 % Normal 0.9-7.0 [facility] Comment on above: Performed By: #### C BC ####[facility] Xdbioozezm6024[address] [place], [place] [address]Dr. Tadeo Smyth Erythrocyte distribution width (RBC) [Ratio] 13.2 % Normal 11.0-15.0 [facility] Comment on above: Performed By: #### C BC ####[facility] Jkdehbyiic14[address] [place], [place] [address]Dr. Tadeo Smyth Hematocrit (Bld) [Volume fraction] 42.6 % Normal 36.0-48.0 [facility] Comment on above: Performed By: #### C BC ####[facility] Mmcknovpen[address] [place], [place] [address]Dr. Tadeo Smyth Hemoglobin (Bld) [Mass/Vol] 13.6 g/dL Normal 12.0-16.0 [facility] Comment on above: Performed By: #### C BC ####[facility] Naqnwxdfch4214[address] [place], [place] [address]Dr. Tadeo Smyth IG # 0.02 10e3/ul Normal 0.00-0.03 [facility] Comment on above: Performed By: #### C BC ####[facility] Dlzsvmrtwj[address] [place], [place] [address]Dr. Margotnicole Smyth IG % 0.3 % Normal 0.0-0.5 [facility] Comment on above: Performed By: #### C BC ####[facility] Coeqgzjlby9247[address] [place], [place] [address]DrNeo Smyth LYMPH # 2.2 103/ul Normal 1.2-3.8 [facility] Comment on above: Performed By: #### C BC ####[facility] Abvecyodmd1896 [place] [phone]. Tadeo Haja Lymphocytes/100 WBC (Bld) 32.1 % Normal 20.5-60.0 [facility] Comment on above: Performed By: #### C BC ####[facility] Fzuhmuymya9351 [place] [phone]. Tadeo Smyth MANUAL DIFF REQ NO Normal [facility] Comment on above: Performed By: #### C BC ####[facility] Rzohilyuag2960 [place] [phone]. Tadeo Smyth MCH (RBC) [Entitic mass] 29.6 pg Normal 26.7-34.0 [facility] Comment on above: Performed By: #### C BC ####[facility] Pefmmulkpw06[address] [place], [place] [address]Dr. Tadeo Smyth MCHC (RBC) [Mass/Vol] 31.9 g/dL Normal 29.9-35.2 [facility] Comment on above: Performed By: #### C BC ####[facility] Zdzmttwkmf6949 [place] [phone]. Tadeo Smyth MCV (RBC) [Entitic vol] 92.6 fL Normal 81.0-99.0 [facility] Comment on above: Performed By: #### C BC ####[facility] Hgtkcsejzq8756 [place] [address]Dr. Tadeo Smyth MONO # 0.2 103/ul Critically low 0.3-0.8 [facility] Comment on above: Performed By: #### C BC ####[facility] Wnzzhnwkhw2330 [place] [phone]. Tadeo Smyth Monocytes/100 WBC (Bld) 3.2 % Normal 1.7-12.0 [facility] Comment on above: Performed By: #### C BC ####[facility] Hiasjdfqdh9193 [place] [phone]. Tadeo Smyth NEUT # 4.2 103/ul Normal 1.4-6.5 [facility] Comment on above: Performed By: #### C BC ####[facility] Ojhpgaedha5573 [place] [address]Dr. Tadeo Smyth Neutrophils/100 WBC (Bld) 61.2 % Normal 43.0-75.0 [facility] Comment on above: Performed By: #### C BC ####[facility] Spxrnnkanb4997 [place] [phone]. Tadeo Haja Platelet mean volume (Bld) [Entitic vol] 9.0 fL Critically low 9.5-13.5 [facility] Comment on above: Performed By: #### C BC ####[facility] Uotnoefaax6155 [place] [address]Dr. Tadeo Smyth PLT 392 103/ul Normal 150-450 [facility] Comment on above: Performed By: #### C BC ####[facility] Thcsstvfff4353 [place] [address]Dr. Tadeo Smyth RBC 4.60 106/ul Normal 4.20-5.40 [facility] Comment on above: Performed By: #### C BC ####[facility] Pwurzfexpt6640 [place] [address]Dr. Tadeo Smyth WBC 6.9 103/ul Normal 4.0-11.0 [facility] Comment on above: Performed By: #### C BC ####[facility] Zbmsilcwlj5680 [place] [address]DrNeo Smyth LIPASEon 11-27-2022 Lipase [Catalytic activity/Vol] 100.0 U/L Normal 73.0-393.0 [facility] Comment on above: Performed By: #### L VIJI HALL, CMP ####[facility] Bgifejyvzg5630 [place] [address]DrNeo Smyth PROF 14(COMP METB)on 023 Albumin [Mass/Vol] 3.5 g/dL Normal 3.4-5.0 [facility] Comment on above: Performed By: #### L VIJI HALL, CMP ####[facility] Qiaxztpwrh6979 [place] [address]Dr. Tadeo Smyth Albumin/Globulin [Mass ratio] 0.9 {ratio} Normal [facility] Comment on above: Performed By: #### L VIJI HALL, CMP ####[facility] Vdwcfiqawl7314 [place] [address]Dr. Tadeo Smyth ALP [Catalytic activity/Vol] 166 U/L Critically high 46-116 [facility] Comment on above: Performed By: #### L VIJI HALL, CMP ####[facility] Cboyrlntix9060 [place] [address]Dr. Tadeo Haja ALT [Catalytic activity/Vol] 25 U/L Normal 14-59 [facility] Comment on above: Performed By: #### L VIJI HALL, CMP ####[facility] Ketkrgohhb34[address] [place], [place] [address]Dr. Tadeo Smyth Anion gap [Moles/Vol] 12.4 mmol/L Normal [facility] Comment on above: Performed By: #### L VIJI HALL, CMP ####[facility] Ncnadmvxcu[address] [place], [place] [address]Dr. Margotnicole Smyth AST [Catalytic activity/Vol] 18 U/L Normal 15-37 [facility] Comment on above: Performed By: #### L VIJI HALL, CMP ####[facility] Lonbwvinps8[address] [place], [place] [address]Dr. Margotnicole Smyth Bilirubin [Mass/Vol] 0.3 mg/dL Normal 0.2-1.0 [facility] Comment on above: Performed By: #### L VIJI HALL, CMP ####[facility] Zidnyqovrl6[address] [place], [place] [address]Dr. Margotnicole Smyth Calcium [Mass/Vol] 9.1 mg/dL Normal 8.5-10.1 [facility] Comment on above: Performed By: #### L VIJI HALL, CMP ####[facility] Jgptoteakk0689 [place] [address]Dr. Tadeo Smyth Chloride [Moles/Vol] 104 mmol/L Normal 98-107 [facility] Comment on above: Performed By: #### L VIJI HALL, CMP ####[facility] Vwlkiszmgd1330 [place] [phone]. Tadeo Smyth CO2 [Moles/Vol] 25.0 mmol/L Normal 21.0-32.0 [facility] Comment on above: Performed By: #### L VIJI HALL, CMP ####[facility] Isljwaltzd9271 [place] [address]Dr. Tadeo Smyth Creatinine [Mass/Vol] 0.87 mg/dL Normal 0.55-1.02 [facility] Comment on above: Performed By: #### L VIJI HALL, CMP ####[facility] Tjgngcvjhg5084 [place] [address]Dr. Tadeo Smyth EGFR-AF PORTUGUESE >60 Normal >=60 [facility] Comment on above: Performed By: #### L VIJI HALL, CMP ####[facility] Inpecifuvl4244 [place] [address]Dr. Tadeo Haja EGFR-NON AF PORTUGUESE >60 Normal >=60 [facility] Comment on above: Performed By: #### L VIJI HALL, CMP ####[facility] Pvueagkhkz0346 [place] [address]Dr. Tadeo Haja Globulin (S) [Mass/Vol] 3.9 g/dL Normal [facility] Comment on above: Performed By: #### L VIJI HALL, CMP ####[facility] Clrzdqofrd4230 [place] [address]Dr. Tadeo Haja Glucose [Mass/Vol] 169 mg/dL Critically high 74-106 [facility] Comment on above: Performed By: #### L VIJI HALL, CMP ####[facility] Dqktkytqnm3839 [place] [address]Dr. Tadeo Smyth Potassium [Moles/Vol] 3.4 mmol/L Critically low 3.5-5.1 [facility] Comment on above: Performed By: #### L VIJI HALL, CMP ####[facility] Ebhuwiqibz1972 [place] [address]Dr. Margotnicole Smyth Protein [Mass/Vol] 7.4 g/dL Normal 6.4-8.2 [facility] Comment on above: Performed By: #### L IPA, VIJI, CMP ####[facility] Lyjsvrmgog2502 [place] [address]Dr. Tadeo Smyth Sodium [Moles/Vol] 138 mmol/L Normal 136-145 [facility] Comment on above: Performed By: #### L IPA, VJII, CMP ####[facility] Oqagkkyads[address] [place], [place] [address]Dr. Tadeo Haja Urea nitrogen [Mass/Vol] 23.0 mg/dL Critically high 7.0-18.0 [facility] Comment on above: Performed By: #### L IPA, VIJI, CMP ####[facility] Vulpnfscnv[address] [place], [place] [address]Dr. Tadeo Smyth Urea nitrogen/Creatinine [Mass ratio] 26.4 mg/mg Normal [facility] Comment on above: Performed By: #### L IPA, VIJI, CMP ####[facility] Ogqtwwcakr8[address] [place], [place] [address]Dr. Tadeo Haja AMYLASEon 11-02-2022 Amylase [Catalytic activity/Vol] 40 U/L Normal 25-115 [facility] Comment on above: Performed By: #### L IPA, MG, CMP, VIJI ####[facility] Shhibbcozk[address] [place], [place] [address]Dr. Margotnicole Haja CBC AUTO DIFFon 11-02-2022 BASO # 0.0 103/ul Normal 0.0-0.1 [facility] Comment on above: Performed By: #### C BC ####[facility] Dgyrycgppw5[address] [place], [place] [address]Dr. Tadeo Smyth Basophils/100 WBC (Bld) 0.5 % Normal 0.2-2.0 [facility] Comment on above: Performed By: #### C BC ####[facility] Phymiewcht48[address] [place], [place] [address]Dr. Tadeo Smyth EO # 0.1 103/ul Normal 0.0-0.7 [facility] Comment on above: Performed By: #### C BC ####[facility] Qhdesunuwt9513 [place] [address]Dr. Tadeo Smyth Eosinophils/100 WBC (Bld) 2.8 % Normal 0.9-7.0 [facility] Comment on above: Performed By: #### C BC ####[facility] Kgnpciseif0312 [place] [address]Dr. Tadeo Smyth Erythrocyte distribution width (RBC) [Ratio] 13.3 % Normal 11.0-15.0 [facility] Comment on above: Performed By: #### C BC ####[facility] Caiumsqupn5228[address] [place], [place] [address]Dr. Tadeo Smyth Hematocrit (Bld) [Volume fraction] 35.6 % Critically low 36.0-48.0 [facility] Comment on above: Performed By: #### C BC ####[facility] Lfstlgfzrw64[address] [place], [place] [address]Dr. Tadeo Smyth Hemoglobin (Bld) [Mass/Vol] 11.3 g/dL Critically low 12.0-16.0 [facility] Comment on above: Performed By: #### C BC ####[facility] Krvhkijmkv64[address] [place], [place] [address]Dr. Tadeo Smyth IG # 0.01 10e3/ul Normal 0.00-0.03 [facility] Comment on above: Performed By: #### C BC ####[facility] Odbnrrfdje5[address] [place], [place] [address]Dr. Tadeo Smyth IG % 0.2 % Normal 0.0-0.5 [facility] Comment on above: Performed By: #### C BC ####[facility] Alvyakkryi33[address] [place], [place] [address]Dr. Tadeo Smyth LYMPH # 1.5 103/ul Normal 1.2-3.8 [facility] Comment on above: Performed By: #### C BC ####[facility] Yemwmpoerj[address] [place], [place] [address]Dr. Tadeo Smyth Lymphocytes/100 WBC (Bld) 34.9 % Normal 20.5-60.0 [facility] Comment on above: Performed By: #### C BC ####[facility] Jagdkkkqzi2469 [place] [phone]. Tadeo Smyth MANUAL DIFF REQ NO Normal [facility] Comment on above: Performed By: #### C BC ####[facility] Imtsjnmrci6726 [place] [phone]. Tadeo Smyth MCH (RBC) [Entitic mass] 28.8 pg Normal 26.7-34.0 [facility] Comment on above: Performed By: #### C BC ####[facility] Feftwbncla6015 [place] [address]Dr. Tadeo Smyth MCHC (RBC) [Mass/Vol] 31.7 g/dL Normal 29.9-35.2 [facility] Comment on above: Performed By: #### C BC ####[facility] Wedzheghid1458 [place] [address]Dr. Tadeo Haja MCV (RBC) [Entitic vol] 90.8 fL Normal 81.0-99.0 [facility] Comment on above: Performed By: #### C BC ####[facility] Ephcvrmaki95[address] [place], [place] [address]Dr. Tadeo Haja MONO # 0.3 103/ul Normal 0.3-0.8 [facility] Comment on above: Performed By: #### C BC ####[facility] Vwhdroxznk3491[address] [place], [place] [address]Dr. Margotnicole Smyth Monocytes/100 WBC (Bld) 6.9 % Normal 1.7-12.0 [facility] Comment on above: Performed By: #### C BC ####[facility] Zxpmksehjd00[address] [place], [place] [address]Dr. Tadeo Smyth NEUT # 2.4 103/ul Normal 1.4-6.5 [facility] Comment on above: Performed By: #### C BC ####[facility] Litxflxtyy5136[address] [place], [place] [address]Dr. Tadeo Smyth Neutrophils/100 WBC (Bld) 54.7 % Normal 43.0-75.0 [facility] Comment on above: Performed By: #### C BC ####[facility] Fdjngobqph1677 [place] [address]Dr. Tadeo Smyth Platelet mean volume (Bld) [Entitic vol] 8.9 fL Critically low 9.5-13.5 [facility] Comment on above: Performed By: #### C BC ####[facility] Tivvxhbgvv1709 [place] [address]Dr. Tadeo Smyth PLT 316 103/ul Normal 150-450 [facility] Comment on above: Performed By: #### C BC ####[facility] Fjfruatilu9427 [place] [address]Dr. Tadeo Smyth RBC 3.92 106/ul Critically low 4.20-5.40 [facility] Comment on above: Performed By: #### C BC ####[facility] Jwfksbvxga2535 [place] [address]Dr. Tadeo Smyth WBC 4.4 103/ul Normal 4.0-11.0 [facility] Comment on above: Performed By: #### C BC ####[facility] Jrweqgospu[address] [place], [place] [address]Dr. Tadeo Smyth H PYLORI ANTIBODY IGGon 10-07 H. PYLORI IGG ABS 0.12 Index Value Normal 0.00-0.79 [facility] Comment on above: Result Comment: Nega tive <0.80 Equivocal 0.80 - 0.89 Positive >0.89 Performed By: #### H PYLLC ####[facility] Ufhzljdpon7264[address] [place], [place] [address]Dr. Tadeo Smyth LIPASEon 11-02-2022 Lipase [Catalytic activity/Vol] 58.0 U/L Critically low 73.0-393.0 [facility] Comment on above: Performed By: #### L IPA, MG, CMP, VIJI ####[facility] Nzqoitghqa55[address] [place], [place] [address]Dr. Tadeo Smyth MAGNESIUMon 11-02-2022 Magnesium [Mass/Vol] 1.8 mg/dL Normal 1.8-2.4 [facility] Comment on above: Performed By: #### L IPA, MG, CMP, VIJI ####[facility] Tfmtbogcyp8128 [place] [address]Dr. Tadeo Smyth PROF 14(COMP METB)on 023 Albumin [Mass/Vol] 3.2 g/dL Critically low 3.4-5.0 [facility] Comment on above: Performed By: #### L IPA, MG, CMP, VIJI ####[facility] Fgznawpzvy7286 [place] [address]Dr. Tadeo Smyth Albumin/Globulin [Mass ratio] 1.0 {ratio} Normal [facility] Comment on above: Performed By: #### L IPA, MG, CMP, VIJI ####[facility] Lombsfyxnb[address] [place], [place] [address]Dr. Tadeo Smyth ALP [Catalytic activity/Vol] 138 U/L Critically high 46-116 [facility] Comment on above: Performed By: #### L IPA, MG, CMP, VIJI ####[facility] Idxzrzjtvm9057[address] [place], [place] [address]Dr. Tadeo Smyth ALT [Catalytic activity/Vol] 22 U/L Normal 14-59 [facility] Comment on above: Performed By: #### L IPA, MG, CMP, VIJI ####[facility] Sbxordnqpb[address] [place], [place] [address]Dr. Tadeo Smyth Anion gap [Moles/Vol] 10.0 mmol/L Normal [facility] Comment on above: Performed By: #### L IPA, MG, CMP, VIJI ####[facility] Jxdmommupv8587[address] [place], [place] [address]Dr. Tadeo Smyth AST [Catalytic activity/Vol] 18 U/L Normal 15-37 [facility] Comment on above: Performed By: #### L IPA, MG, CMP, VIJI ####[facility] Zvddxfnwwl7664[address] [place], [place] [address]Dr. Tadeo Smyth Bilirubin [Mass/Vol] 0.5 mg/dL Normal 0.2-1.0 [facility] Comment on above: Performed By: #### L IPA, MG, CMP, VIJI ####[facility] Lycoqwjmzb4974[address] [place], [place] [address]Dr. Tadeo Smyth Calcium [Mass/Vol] 8.9 mg/dL Normal 8.5-10.1 [facility] Comment on above: Performed By: #### L IPA, MG, CMP, VIJI ####[facility] Judbhfwlej5902 [place] [address]Dr. Tadeo Smyth Chloride [Moles/Vol] 107 mmol/L Normal 98-107 [facility] Comment on above: Performed By: #### L IPA, MG, CMP, VIJI ####[facility] Hmmywmhdxf3498 [place] [address]Dr. Tadeo Smyth CO2 [Moles/Vol] 28.8 mmol/L Normal 21.0-32.0 [facility] Comment on above: Performed By: #### L IPA, MG, CMP, VIJI ####[facility] Kqxbdixazu4964[address] [place], [place] [address]Dr. Tadeo Smyth Creatinine [Mass/Vol] 0.74 mg/dL Normal 0.55-1.02 [facility] Comment on above: Performed By: #### L IPA, MG, CMP, VIJI ####[facility] Hobhdivsdp1609 [place] [address]Dr. Tadeo Smyth EGFR-AF PORTUGUESE >60 Normal >=60 [facility] Comment on above: Performed By: #### L IPA, MG, CMP, VIJI ####[facility] Ulmvhvvrwh3917 [place] [address]Dr. Tadeo Smyth EGFR-NON AF PORTUGUESE >60 Normal >=60 [facility] Comment on above: Performed By: #### L IPA, MG, CMP, VIJI ####[facility] Nompvdvelp3302 [place] [address]Dr. Tadeo Smyth Globulin (S) [Mass/Vol] 3.3 g/dL Normal [facility] Comment on above: Performed By: #### L IPA, MG, CMP, VIJI ####[facility] Topdeycfpn0191 [place] [address]Dr. Tadeo Smyth Glucose [Mass/Vol] 96 mg/dL Normal 74-106 [facility] Comment on above: Performed By: #### L IPA, MG, CMP, VIJI ####[facility] Mvvsfyqrpk5060 [place] [address]Dr. Tadeo Smyth Potassium [Moles/Vol] 3.8 mmol/L Normal 3.5-5.1 [facility] Comment on above: Performed By: #### L IPA, MG, CMP, VIJI ####[facility] Qizwnwkztz7510 [place] [address]Dr. Tadeo Smyth Protein [Mass/Vol] 6.5 g/dL Normal 6.4-8.2 [facility] Comment on above: Performed By: #### L IPA, MG, CMP, VIJI ####[facility] Sebvkdzras58[address] [place], [place] [address]Dr. Tadeo Smyth Sodium [Moles/Vol] 142 mmol/L Normal 136-145 [facility] Comment on above: Performed By: #### L IPA, MG, CMP, VIJI ####[facility] Ryhtugowye62[address] [place], [place] [address]Dr. Tadeo Smyth Urea nitrogen [Mass/Vol] 8.0 mg/dL Normal 7.0-18.0 [facility] Comment on above: Performed By: #### L IPA, MG, CMP, VIJI ####[facility] Uovzijesdd230[address] [place], [place] [address]Dr. Tadeo Smyth Urea nitrogen/Creatinine [Mass ratio] 10.8 mg/mg Normal [facility] Comment on above: Performed By: #### L IPA, MG, CMP, VIJI ####[facility] Ocdegujsnm8[address] [place], [place] [address]Dr. Tadeo Smyth AMMONIAon 11-01-2022 Ammonia (P) [Moles/Vol] 18 umol/L Normal 11-32 [facility] Comment on above: Performed By: #### A MM ####[facility] Xgmlirhkkf47[address] [place], [place] [address]Dr. Tadeo Smyth AMYLASEon 11-01-2022 Amylase [Catalytic activity/Vol] 43 U/L Normal 25-115 [facility] Comment on above: Performed By: #### M G, VIJI, LIPA, CMP ####[facility] Dnbilbbsuh0850 [place] [phone]. Tadeo Haja CBC AUTO DIFFon 11-01-2022 BASO # 0.0 103/ul Normal 0.0-0.1 [facility] Comment on above: Performed By: #### C BC ####[facility] Exh[address]fh[address] [place], [place] [address]Dr. Margotnicole Smyth Basophils/100 WBC (Bld) 0.6 % Normal 0.2-2.0 [facility] Comment on above: Performed By: #### C BC ####[facility] Tpttxlxhwp[address] [place], [place] [address]Dr. Margotnicole Smyth EO # 0.1 103/ul Normal 0.0-0.7 [facility] Comment on above: Performed By: #### C BC ####[facility] Xwcrpmmoen84[address] [place], [place] [address]Dr. Tadeo Smyth Eosinophils/100 WBC (Bld) 1.5 % Normal 0.9-7.0 [facility] Comment on above: Performed By: #### C BC ####[facility] Zxdrognplk[address] [place], [place] [address]Dr. Margotnicole Smyth Erythrocyte distribution width (RBC) [Ratio] 13.5 % Normal 11.0-15.0 [facility] Comment on above: Performed By: #### C BC ####[facility] Uvfqlfzgeq[address] [place], [place] [address]Dr. Tadeo Smyth Hematocrit (Bld) [Volume fraction] 37.7 % Normal 36.0-48.0 [facility] Comment on above: Performed By: #### C BC ####[facility] Joaevzoyov88[address] [place], [place] [address]Dr. Tadeo Smyth Hemoglobin (Bld) [Mass/Vol] 12.5 g/dL Normal 12.0-16.0 [facility] Comment on above: Performed By: #### C BC ####[facility] Sfvinpyqtu[address] [place], [place] [address]Dr. Tadeo mSyth IG # 0.02 10e3/ul Normal 0.00-0.03 [facility] Comment on above: Performed By: #### C BC ####[facility] [address] [place] [phone]. Tadeo Smyth IG % 0.4 % Normal 0.0-0.5 [facility] Comment on above: Performed By: #### C BC ####[facility] [address]prmsv[address] [place] [phone]. Tadeo Smyth LYMPH # 1.3 103/ul Normal 1.2-3.8 [facility] Comment on above: Performed By: #### C BC ####[facility] F[address]zbim[address] [place] [phone]. Tadeo Smyth Lymphocytes/100 WBC (Bld) 23.9 % Normal 20.5-60.0 [facility] Comment on above: Performed By: #### C BC ####[facility] [address] [place] [address]Dr. Tadeo Smyth MANUAL DIFF REQ NO Normal [facility] Comment on above: Performed By: #### C BC ####[facility] [address] [place] [phone]. Tadeo Smyth MCH (RBC) [Entitic mass] 29.8 pg Normal 26.7-34.0 [facility] Comment on above: Performed By: #### C BC ####[facility] [address] [place] [phone]. Tadeo Smyth MCHC (RBC) [Mass/Vol] 33.2 g/dL Normal 29.9-35.2 [facility] Comment on above: Performed By: #### C BC ####[facility] [address] [place] [phone]. Tadeo Smyth MCV (RBC) [Entitic vol] 89.8 fL Normal 81.0-99.0 [facility] Comment on above: Performed By: #### C BC ####[facility] [address] [place] [phone]. Tadeo Haja MONO # 0.3 103/ul Normal 0.3-0.8 [facility] Comment on above: Performed By: #### C BC ####[facility] [address]ys[address] [place] [phone]. Tadeo Smyth Monocytes/100 WBC (Bld) 5.2 % Normal 1.7-12.0 [facility] Comment on above: Performed By: #### C BC ####[facility] Havxxqxs[address] [place] [phone]. Tadeo Smyth NEUT # 3.6 103/ul Normal 1.4-6.5 [facility] Comment on above: Performed By: #### C BC ####[facility] [address]xbmtr[address] [place] [phone]. Tadeo Smyth Neutrophils/100 WBC (Bld) 68.4 % Normal 43.0-75.0 [facility] Comment on above: Performed By: #### C BC ####[facility] S[address]wezie[address] [place] [phone]. Tadeo Smyth Platelet mean volume (Bld) [Entitic vol] 9.0 fL Critically low 9.5-13.5 [facility] Comment on above: Performed By: #### C BC ####[facility] [address]zwscmuoj[address] [place] [phone]. Tadeo Smyth PLT 356 103/ul Normal 150-450 [facility] Comment on above: Performed By: #### C BC ####[facility] [address]fay[address] [place] [phone]. Tadeo Smyth RBC 4.20 106/ul Normal 4.20-5.40 [facility] Comment on above: Performed By: #### C BC ####[facility] [address] [place], [place] [id number]. Tadeo Smyth WBC 5.2 103/ul Normal 4.0-11.0 [facility] Comment on above: Performed By: #### C BC ####[facility] I[address] [place], [place] [address]Dr. Tadeo Smyth CT ABD/PELV W CONon 11-01-19 CT ABD/PELV W CON Normal [facility] CULTURE BLOODon 11-01-2022 Microscopic examination of blood, culture Culture Observations: NO GROWTH AT 5 DAYS. Isolate 1 BC_BA_NA Normal [facility] Comment on above: Performed By: #### B LDCX2 ####[facility] Y[address] [place] [address]Dr. Tadeo Smyth Performed By: #### B LDCX1 ####[facility] Z[address]qs[address] [place] [address]Dr. Tadeo Smyth CULTURE URINEon 11-01-2022 CULTURE URINE Culture Observations : LIGHT GROWTH OF MIXED GENITAL SINTIA. NO POTENTIAL PATHOGENS SEEN. Normal [facility] Comment on above: Performed By: #### U RCX ####[facility] Evj[address]onesq[address] [place], [place] [address]Dr. Tadeo Smyth Covid-19 PCR (CVDTBH)on 10-07 SARS-CoV-2 (COVID-19) RNA CHEN+probe Ql (Unsp spec) Not detected Normal NOT DETECTED [facility] Comment on above: Result Comment: When [...] for this test is supported by the [place] of Health and Human Service's declaration that [...] be used). Performed By: #### C VDTBH ####[facility] [address] [place] [address]Dr. Tadeo Smyth LACTATE/LACTIC ACIDon 2022 Lactate [Moles/Vol] 0.7 mmol/L Normal 0.4-1.[address] [facility] Comment on above: Performed By: #### L ACT ####[facility] [address] [place] [address]Dr. Tadeo Smyth LIPASEon 11-01-2022 Lipase [Catalytic activity/Vol] 58.0 U/L Critically low 73.0-393.0 [facility] Comment on above: Performed By: #### M Ayan, VIJI, LIPA, CMP ####[facility] [address] [place] [address]Dr. Tadeo Smyth MAGNESIUMon 11-01-2022 Magnesium [Mass/Vol] 2.0 mg/dL Normal 1.8-2.4 [facility] Comment on above: Performed By: #### M Ayan, VIJI, LIPA, CMP ####[facility] [address] [place], [place] [address]Dr. Tadeo Smyth PROF 14(COMP METB)on 023 Albumin [Mass/Vol] 3.6 g/dL Normal 3.4-5.0 [facility] Comment on above: Performed By: #### M Ayan, VIJI, LIPA, CMP ####[facility] [address]xem[address]ys[address] [place], [place] [address]Dr. Tadeo Smyth Albumin/Globulin [Mass ratio] 1.0 {ratio} Normal [facility] Comment on above: Performed By: #### M Ayan, VIJI, LIPA, CMP ####[facility] U[address] [place], [place] [address]Dr. Tadeo Smyth ALP [Catalytic activity/Vol] 164 U/L Critically high 46-116 [facility] Comment on above: Performed By: #### M Ayan, VIJI, LIPA, CMP ####[facility] [address] [place] [address]Dr. Tadeo Smyth ALT [Catalytic activity/Vol] 22 U/L Normal 14-59 [facility] Comment on above: Performed By: #### M Ayan, VIJI, LIPA, CMP ####[facility] Qxvme[address] [place] [address]Dr. Tadeo Smyth Anion gap [Moles/Vol] 11.5 mmol/L Normal [facility] Comment on above: Performed By: #### M Ayan, VIJI, LIPA, CMP ####[facility] Zss[address]gebvb[address] [place] [address]Dr. Tadeo Smyth AST [Catalytic activity/Vol] 17 U/L Normal 15-37 [facility] Comment on above: Performed By: #### M G, VIJI, LIPA, CMP ####[facility] [address] [place] [address]Dr. Tadeo Smyth Bilirubin [Mass/Vol] 0.4 mg/dL Normal 0.2-1.0 [facility] Comment on above: Performed By: #### M G, VIJI, LIPA, CMP ####[facility] Y[address] [place] [address]Dr. Tadeo Smyth Calcium [Mass/Vol] 9.1 mg/dL Normal 8.5-10.1 [facility] Comment on above: Performed By: #### M Ayan, VIJI, LIPA, CMP ####[facility] Az[address]dxpzoq[address] [place] [address]Dr. Tadeo Smyth Chloride [Moles/Vol] 105 mmol/L Normal 98-107 [facility] Comment on above: Performed By: #### M Ayan, VIJI, LIPA, CMP ####[facility] Xicx[address]qvho[address] [place] [address]Dr. Tadeo Smyth CO2 [Moles/Vol] 27.6 mmol/L Normal 21.0-32.0 [facility] Comment on above: Performed By: #### M Ayan, VIJI, LIPA, CMP ####[facility] [address]ra[address] [place] [address]Dr. Tadeo Smyth Creatinine [Mass/Vol] 0.72 mg/dL Normal 0.55-1.02 [facility] Comment on above: Performed By: #### M Ayan, VIJI, LIPA, CMP ####[facility] Uq[address]xd[address] [place] [address]Dr. Tadeo Smyth EGFR-AF PORTUGUESE >60 Normal >=60 [facility] Comment on above: Performed By: #### M G, VIJI, LIPA, CMP ####[facility] Q[address]obrzyty[address] [place] [address]Dr. Tadeo Smyth EGFR-NON AF PORTUGUESE >60 Normal >=60 [facility] Comment on above: Performed By: #### M G, VIJI, LIPA, CMP ####[facility] Aqwpvmtnrg[address] [place] [address]Dr. Tadeo Smyth Globulin (S) [Mass/Vol] 3.6 g/dL Normal [facility] Comment on above: Performed By: #### M G, VIJI, LIPA, CMP ####[facility] [address]uiwg[address] [place] [address]Dr. Tadeo Smyth Glucose [Mass/Vol] 100 mg/dL Normal 74-106 [facility] Comment on above: Performed By: #### M G, VIJI, LIPA, CMP ####[facility] Kecqot[address] [place] [address]Dr. Tadeo Smyth Potassium [Moles/Vol] 4.1 mmol/L Normal 3.5-5.1 [facility] Comment on above: Performed By: #### M G, VIJI, LIPA, CMP ####[facility] Y[address]cdchedf[address] [place] [address]Dr. Tadeo Smyth Protein [Mass/Vol] 7.2 g/dL Normal 6.4-8.2 [facility] Comment on above: Performed By: #### M G, VIJI, LIPA, CMP ####[facility] Xfugeetvvq[address] [place] [address]Dr. Tadeo Smyth Sodium [Moles/Vol] 140 mmol/L Normal 136-145 [facility] Comment on above: Performed By: #### M G, VIJI, LIPA, CMP ####[facility] [address]xt[address] [place], [place] [address]Dr. Tadeo Smyth Urea nitrogen [Mass/Vol] 15.0 mg/dL Normal 7.0-18.0 [facility] Comment on above: Performed By: #### M G, VIJI, LIPA, CMP ####[facility] Kxsoolfgat[address] [place] [address]Dr. Yilan Smyth Urea nitrogen/Creatinine [Mass ratio] 20.8 mg/mg Normal [facility] Comment on above: Performed By: #### M VIJI Botello LIPA, CMP ####[facility] F[address]chol[address] [place], [place] [address]Dr. Tadeo Smyth UA RANDOM W/MICROSCOPICon BACTERIA TRACE Abnormal NONE SEEN [facility] Comment on above: Performed By: #### U AMIC ####[facility] [address] [place], [place] [address]Dr. Tadeo Smyth Bilirubin Ql (U) Negative Normal NEGATIVE [facility] Comment on above: Performed By: #### U AMIC ####[facility] Reaes[address]usu[address] [place], [place] [address]Dr. Tadeo Smyth CAST NONE SEEN Normal NONE SEEN [facility] Comment on above: Performed By: #### U AMIC ####[facility] Bon[address]qfrlp[address] [place], [place] [address]Dr. Tadeo Smyth Clarity (U) CLEAR Normal CLEAR [facility] Comment on above: Performed By: #### U AMIC ####[facility] Ayrrs[address]bzb[address] [place], [place] [address]Dr. Tadeo Smyth Color (U) LT. YELLOW Normal YELLOW [facility] Comment on above: Performed By: #### U AMIC ####[facility] Ogdxtnkebw[address] [place], [place] [address]Dr. Tadeo Smyth Crystals LM Nom (Urine sed) NONE SEEN Normal NONE SEEN [facility] Comment on above: Performed By: #### U AMIC ####[facility] Jjsux[address]zp[address] [place], [place] [address]Dr. Tadeo Smyth Epithelial cells LM Ql (Urine sed) RARE Normal NONE SEEN /RARE [facility] Comment on above: Performed By: #### U AMIC ####[facility] [address]qv[address] [place], [place] [address]Dr. Tadeo Smyth Glucose Ql (U) Negative Normal NEGATIVE [facility] Comment on above: Performed By: #### U AMIC ####[facility] Reevdvgxct[address] [place], [place] [address]Dr. Tadeo Smyth Hemoglobin Ql (U) TRACE-LYSED Abnormal NEGATIVE [facility] Comment on above: Performed By: #### U AMIC ####[facility] [address]af[address] [place], [place] [address]Dr. Tadeo Smyth Ketones Ql (U) Negative Normal NEGATIVE [facility] Comment on above: Performed By: #### U AMIC ####[facility] Leayorisip[address] [place], [place] [address]Dr. Tadeo Smyth LEUKOCYTES Negative Normal NEGATIVE [facility] Comment on above: Performed By: #### U AMIC ####[facility] [address] [place], [place] [address]Dr. Tadeo Smyth MUCOUS NONE SEEN Normal NONE SEEN [facility] Comment on above: Performed By: #### U AMIC ####[facility] Okzwobyaiu[address] [place], [place] [address]Dr. Tadeo Smyth Nitrite Ql (U) Negative Normal NEGATIVE [facility] Comment on above: Performed By: #### U AMIC ####[facility] [address]us[address]pa[address] [place], [place] [address]Dr. Tadeo Smyth pH (U) 6.0 [pH] Normal 5-9 [facility] Comment on above: Performed By: #### U AMIC ####[facility] [address]orctmey[address] [place], [place] [address]Dr. Tadeo Smyth RBC 0-2 Normal 0-2 [facility] Comment on above: Performed By: #### U AMIC ####[facility] Ry[address]irecq[address] [place], [place] [address]Dr. Tadeo Smyth SPEC GRAVITY 1.010 Normal 1.005-<=1.0 25 [facility] Comment on above: Performed By: #### U AMIC ####[facility] Uu[address]zc[address] [place], [place] [address]Dr. Tadeo Smyth UA PROTEIN Negative Normal NEGATIVE/ TRACE [facility] Comment on above: Performed By: #### U AMIC ####[facility] Ahw[address]fiig[address] [place], [place] [address]Dr. Tadeo Smyth Urobilinogen Qn (U) 0.2 {Benito'U}/dL Normal 0.2 - 1. 0 [facility] Comment on above: Performed By: #### U AMIC ####[facility] [address] [place], [place] [address]Ss. Tadeo Smyth WBC 0-2 Abnormal NONE SEEN [facility] Comment on above: Performed By: #### U AMIC ####[facility] [address]ju[address] [place], [place] [address]Dw. Tadeo Smyth Activated partial thrombopla stin time (aPTT) in platelet poor plasma by coagulation aOrdered By: Conner Griffith on 10-26-2022 aPTT Coag (PPP) [Time] 30.8 s 25.1-36.5 [facility] Albumin [Mass/volume] in Ser um or PlasmaOrdered By: Conner Griffith on 10-26-2022 Albumin [Mass/Vol] 3.6 g/dL 3.2-5.5 [facility] [place] [facility] Automated erythrocytes count in urine sediment (number/area)Ordered By: Conner Griffith on 10-26-2022 RBC Auto (Urine sed) [#/Area] 0-1 [HPF] 0-4 [facility] Automated leukocytes count i n urine sediment (number/area)Ordered By: Conner Griffith on 10-26-2022 WBC Auto (Urine sed) [#/Area] None seen [HPF] 0-4 [facility] Basophils Auto (Bld) [#/Vol] Ordered By: Conner Griffith on 10-26-2022 Basophils (Bld) [#/Vol] 0.0 10*3/uL 0.0-0.2 [facility] Basophils/100 WBC Auto (Bld) Ordered By: Conner Griffith on 10-26-2022 Basophils/100 WBC (Bld) 0.6 % . [facility] Bilirubin Test strip Ql (U)O rdered By: Conner Griffith on 10-26-2022 Bilirubin Ql (U) Negative Negative [facility] Color Auto (U)Ordered By: Kevin Griffith on 10-26-2022 Color (U) Yellow Yellow [facility] Creatinine and Glomerular fi ltration rate.predicted panel (S/P/Bld)Ordered By: Conner Griffith on 10-26-2022 Creatinine [Mass/Vol] 0.81 mg/dL 0.44-1.03 [facility] Eosinophils Auto (Bld) [#/Vo l]Ordered By: Conner Griffith on 10-26-2022 Eosinophils (Bld) [#/Vol] 0.2 10*3/uL 0.0-0.45 [facility] Eosinophils/100 WBC Auto (Bl d)Ordered By: Conner Griffith on 10-26-2022 Eosinophils/100 WBC (Bld) 3.3 % . [facility] Erythrocyte distribution wid th Auto (RBC) [Ratio]Ordered By: Conner Griffith on 10-26-2022 Erythrocyte distribution width (RBC) [Ratio] 14.5 % 11.9-15.3 [facility] Estimated glomerular filtrat ion rate (GFR) non- AmericanOrdered By: Conner Griffith on 10-26-2022 GFR/1.73 sq M.predicted among non-blacks MDRD (S/P/Bld) [Vol rate/Area] > 60 mL/Min [facility] Globulin Calc (S) [Mass/Vol] Ordered By: Conner Griffith on 10-26-2022 Globulin (S) [Mass/Vol] 3.2 g/dL [facility] Hematocrit Auto (Bld) [Volum e fraction]Ordered By: Conner Griffith on 10-26-2022 Hematocrit (Bld) [Volume fraction] 36.7 % 34.0-46.4 [facility] Hemoglobin [Mass/volume] in BloodOrdered By: Conner Griffith on 10-26-2022 Hemoglobin (Bld) [Mass/Vol] 12.1 g/dL 11.8-15.4 [facility] Ketones Auto test strip (U) [Mass/Vol]Ordered By: Conner Griffith on 10-26-2022 Ketones (U) [Mass/Vol] Negative Negative [facility] Laboratory - Chemistry and C hemistry - challengeOrdered By: Conner Griffith on 10-26-2022 Lipase [Catalytic activity/Vol] 37.0 U/L 22-51 [facility] Laboratory - CoagulationOrde red By: Conner Griffith on 10-26-2022 PT Coag (PPP) [Time] 10.6 s 9.0-12.9 [facility] - UrinalysisOrder ed By: Conner Griffith on 10-26-2022 Hyaline casts LM Ql (Urine sed) None seen [LPF] 0-8 [facility] Leukocytes [#/volume] correc jun for nucleated erythrocytes in Blood by Automated counOrdered By: Conner Griffith on 10-26-2022 WBC corrected for nucl RBC Auto (Bld) [#/Vol] 6.3 10*3/uL 3.8-11.6 [facility] Lymphocytes Auto (Bld) [#/Vo l]Ordered By: Conner Griffith on 10-26-2022 Lymphocytes (Bld) [#/Vol] 1.9 10*3/uL 1.00-4.8 [facility] Lymphocytes/100 WBC Auto (Bl d)Ordered By: Conner Griffith on 10-26-2022 Lymphocytes/100 WBC (Bld) 29.7 % . [facility] MCH Auto (RBC) [Entitic mass ]Ordered By: Conner Griffith on 10-26-2022 MCH (RBC) [Entitic mass] 29.3 pg 24.7-34.3 [facility] MCHC Auto (RBC) [Mass/Vol]Or dered By: Conner Griffith on 10-26-2022 MCHC (RBC) [Mass/Vol] 33.1 g/dL 32.0-35.0 [facility] MCV Auto (RBC) [Entitic vol] Ordered By: Conner Griffith on 10-26-2022 MCV (RBC) [Entitic vol] 88.5 fL 80-100 [facility] Monocyte distribution width [Entitic volume] in Blood by AutomatedOrdered By: Conner Griffith on 10-26-2022 Monocyte distribution width Auto (Bld) [Entitic vol] 16.27 % 0.00-20.00 [facility] Monocytes Auto (Bld) [#/Vol] Ordered By: Conner Griffith on 10-26-2022 Monocytes (Bld) [#/Vol] 0.4 10*3/uL 0.0-0.8 [facility] Monocytes/100 WBC Auto (Bld) Ordered By: Conner Griffith on 10-26-2022 Monocytes/100 WBC (Bld) 7.1 % . [facility] Neutrophils Auto (Bld) [#/Vo l]Ordered By: Conner Griffith on 10-26-2022 Neutrophils (Bld) [#/Vol] 3.7 10*3/uL 1.8-7.7 [facility] Neutrophils/100 WBC Auto (Bl d)Ordered By: Conner Griffith on 10-26-2022 Neutrophils/100 WBC (Bld) 59.3 % . [facility] Nitrite Test strip Ql (U)Ord ered By: Conner Griffith on 10-26-2022 Nitrite Ql (U) Negative Negative [facility] No Panel InformationOrdered By: Conner Griffith on 10-26-2022 Estimated GFR () > 60 mL/Min [facility] Comment on above: GFR estimated refere nce range: According to KDOQI guidelines, <60 ml/min/1.73m2 is sufficient to diagnose a patient with chronic kidney disease. Pharmacy Creatinine Clearance (Chem 93.01 [facility] Nucleated erythrocytes [Pres ence] in Blood by Automated countOrdered By: Conner Griffith on 10-26-2022 Nucleated RBC Auto Ql (Bld) 0.3 /100{WBC} 0-0.5 [facility] Platelet mean volume Auto (B ld) [Entitic vol]Ordered By: Conner Griffith on 10-26-2022 Platelet mean volume (Bld) [Entitic vol] 7.5 fL 6.3-10.7 [facility] Platelet poor plasma interna tional normalized ratio (INR) by coagulation assay (relatOrdered By: Conner Griffith on 10-26-2022 INR Coag (PPP) [Relative time] 0.9 {INR} [facility] Comment on above: INR Therapeutic Rang [...] 10-26-2022 Platelets (Bld) [#/Vol] 379 10*3/uL 150-450 [facility] Protein Auto test strip (U) [Mass/Vol]Ordered By: Conner Griffith on 10-26-2022 Protein (U) [Mass/Vol] Negative Negative [facility] Protein [Mass/volume] in Ser um or PlasmaOrdered By: Conner rGiffith on 10-26-2022 Protein [Mass/Vol] 6.8 g/dL 6.1-7.9 [facility] [place] [facility] RBC Auto (Bld) [#/Vol]Ordere d By: Conner Griffith on 10-26-2022 RBC (Bld) [#/Vol] 4.14 10*6/uL 3.60-5.00 [facility] Serum or plasma alanine cooley otransferase measurement without P-5'-P (enzymatic activiOrdered By: Conner Griffith on 10-26-2022 ALT No additional P-5'-P [Catalytic activity/Vol] 18 U/L 10-60 [facility] Serum or plasma albumin/glob ulin mass ratioOrdered By: Conner Griffith on 10-26-2022 Albumin/Globulin [Mass ratio] 1.1 {ratio} [facility] Serum or plasma alkaline augustin sphatase measurement (enzymatic activity/volume)Ordered By: Conner Griffith on 10-26-2022 ALP [Catalytic activity/Vol] 121 U/L 32-92 [facility] Serum or plasma anion gap de terminationOrdered By: Conner Griffith on 10-26-2022 Anion gap [Moles/Vol] 11.3 mmol/L 6.0-15.0 [facility] Serum or plasma aspartate am inotransferase measurement (enzymatic activity/volume)Ordered By: Conner Griffith on 10-26-2022 AST [Catalytic activity/Vol] 19 U/L 10-42 [facility] Serum or plasma calcium julee urement (mass/volume)Ordered By: Conner Griffith on 10-26-2022 Calcium [Mass/Vol] 8.9 mg/dL 8.2-10.2 [facility] [place] [facility] Serum or plasma chloride julio surement (moles/volume)Ordered By: Conner Griffith on 10-26-2022 Chloride [Moles/Vol] 108 mmol/L 95-114 [facility] Serum or plasma glucose julee urement (mass/volume)Ordered By: Conner Griffith on 10-26-2022 Glucose [Mass/Vol] 95 mg/dL 70-100 [facility] [place] [facility] Comment on above: ADA recommended refe rence rangeRandom Glucose Reference Range is dependent on time and content of last meal. Glucose of more than 200 mg/dL in a nonstressed, ambulatory subject supports the diagnosis of Diabetes Mellitus. Serum or plasma potassium me asurement (moles/volume)Ordered By: Conner Griffith on 10-26-2022 Potassium [Moles/Vol] 3.4 mmol/L 3.5-5.1 [facility] Serum or plasma sodium measu rement (moles/volume)Ordered By: Conner Griffith on 10-26-2022 Sodium [Moles/Vol] 141 mmol/L 136-146 [facility] [place] [facility] Serum or plasma total biliru bin measurement (mass/volume)Ordered By: Conner Griffith on 10-26-2022 Bilirubin [Mass/Vol] 0.4 mg/dL 0.3-1.2 [facility] Serum or plasma total carbon dioxide measurement (moles/volume)Ordered By: Conner Griffith on 10-26-2022 CO2 [Moles/Vol] 25.1 mmol/L 22.0-30.0 [facility] Serum or plasma urea nitroge n measurement (mass/volume)Ordered By: Conner Griffith on 10-26-2022 Urea nitrogen [Mass/Vol] 18 mg/dL 9-23 [facility] Specific gravity Auto test s trip (U) [Rel density]Ordered By: Conner Griffith on 10-26-2022 Specific gravity (U) [Rel density] 1.019 1.001-1.030 [facility] Squamous epithelial cells de tection in urine sediment by light microscopyOrdered By: Conner Griffith on 10-26-2022 Epithelial cells.squamous LM Ql (Urine sed) 1-2 [HPF] 0-2 [facility] Urine bacteria detection by automated methodOrdered By: Conner Griffith on 10-26-2022 Bacteria Auto Ql (U) None seen None Seen [facility] Urine clarity by refractomet ry automatedOrdered By: Conner Griffith on 10-26-2022 Clarity Refractometry automated (U) Clear Clear [facility] Urine glucose measurement by automated test strip (mass/volume)Ordered By: Conner Griffith on 10-26-2022 Glucose Auto test strip (U) [Mass/Vol] Normal mg/dL Normal [facility] Urine hemoglobin detection b y automated test stripOrdered By: Conner Griffith on 10-26-2022 Hemoglobin Auto test strip Ql (U) Negative Negative [facility] Urine lactic acid measuremen tOrdered By: Conner Griffith on 10-26-2022 Lactate (U) [Moles/Vol] 1.0 mmol/L 0.5-2.2 [facility] Urine leukocyte esterase det ection by automated test stripOrdered By: Conner Griffith on 10-26-2022 Leukocyte esterase Auto test strip Ql (U) 1+ Negative [facility] Urobilinogen Auto test strip (U) [Mass/Vol]Ordered By: Conner Grifftih on 10-26-2022 Urobilinogen (U) [Mass/Vol] Normal mg/dL Normal [facility] WBC Auto (Bld) [#/Vol]Ordere d By: Conner Griffith on 10-26-2022 WBC (Bld) [#/Vol] 6.3 10*3/uL 3.8-11.6 [facility] pH Auto test strip (U)Ordere d By: Conner Griffith on 10-26-2022 pH (U) 6.5 [pH] 5.0-9.0 [facility] CBC AUTO DIFFon 09-21-2022 BASO # 0.0 103/ul Normal 0.0-0.1 [facility] Comment on above: Performed By: #### C BC ####[facility] Chdrmtnibt[address] [place], [place] [address]Dr. Tadeo Smyth Basophils/100 WBC (Bld) 0.4 % Normal 0.2-2.0 [facility] Comment on above: Performed By: #### C BC ####[facility] Dspfcuhyqo[address] [place], [place] [address]Dr. Tadeo Smyth EO # 0.1 103/ul Normal 0.0-0.7 [facility] Comment on above: Performed By: #### C BC ####[facility] Suyaxbmwsj4824[address] [place], [place] [address]Dr. Tadeo Smyth Eosinophils/100 WBC (Bld) 1.8 % Normal 0.9-7.0 [facility] Comment on above: Performed By: #### C BC ####[facility] Zyxouwswib[address] [place], [place] [address]Dr. Tadeo Smyth Erythrocyte distribution width (RBC) [Ratio] 13.8 % Normal 11.0-15.0 [facility] Comment on above: Performed By: #### C BC ####[facility] Rvwxgibtxw4061[address] [place], [place] [address]Dr. Tadeo Smyth Hematocrit (Bld) [Volume fraction] 41.0 % Normal 36.0-48.0 [facility] Comment on above: Performed By: #### C BC ####[facility] Ksaysmjmao[address] [place], [place] [address]Dr. Tadeo Smyth Hemoglobin (Bld) [Mass/Vol] 13.3 g/dL Normal 12.0-16.0 [facility] Comment on above: Performed By: #### C BC ####[facility] Tsmkrusfcd07[address] [place], [place] [address]Dr. Tadeo Smyth IG # 0.01 10e3/ul Normal 0.00-0.03 [facility] Comment on above: Performed By: #### C BC ####[facility] Ilmpzrgzqd[address] [place], [place] [address]DrNeo Tadeo Smyth IG % 0.1 % Normal 0.0-0.5 [facility] Comment on above: Performed By: #### C BC ####[facility] Wzrzjglahx7624[address] [place], [place] [address]Dr. Tadeo Smyth LYMPH # 1.7 103/ul Normal 1.2-3.8 [facility] Comment on above: Performed By: #### C BC ####[facility] [address] [place] [address]DrNeo Smyth Lymphocytes/100 WBC (Bld) 24.8 % Normal 20.5-60.0 [facility] Comment on above: Performed By: #### C BC ####[facility] Lobdb[address]zsf[address] [place] [address]DrNeo Smyth MANUAL DIFF REQ NO Normal [facility] Comment on above: Performed By: #### C BC ####[facility] Esktjtiktm[address] [place] [address]DrNeo Smyth MCH (RBC) [Entitic mass] 29.0 pg Normal 26.7-34.0 [facility] Comment on above: Performed By: #### C BC ####[facility] Kxaoxoxybe7921 [place] [address]Dr. Tadeo Smyth MCHC (RBC) [Mass/Vol] 32.4 g/dL Normal 29.9-35.2 [facility] Comment on above: Performed By: #### C BC ####[facility] Efozfzhkju2267[address] [place], [place] [address]DrNeo Smyth MCV (RBC) [Entitic vol] 89.3 fL Normal 81.0-99.0 [facility] Comment on above: Performed By: #### C BC ####[facility] Osnppkgkoq6874 [place] [address]DrNeo Smyth MONO # 0.5 103/ul Normal 0.3-0.8 [facility] Comment on above: Performed By: #### C BC ####[facility] Exeeatwzno2112[address] [place], [place] [address]DrNeo Smyth Monocytes/100 WBC (Bld) 6.9 % Normal 1.7-12.0 [facility] Comment on above: Performed By: #### C BC ####[facility] Qbbnysjueq[address] [place], [place] [address]DrNeo Smyth NEUT # 4.5 103/ul Normal 1.4-6.5 [facility] Comment on above: Performed By: #### C BC ####[facility] Abetpnjtgc6766 [place] [address]DrNeo Frostnicole Haja Neutrophils/100 WBC (Bld) 66.0 % Normal 43.0-75.0 [facility] Comment on above: Performed By: #### C BC ####[facility] Fgmyyyiymu5[address] [place], [place] [address]DrNeo Smyth Platelet mean volume (Bld) [Entitic vol] 8.8 fL Critically low 9.5-13.5 [facility] Comment on above: Performed By: #### C BC ####[facility] Nvxgyjegul022[address] [place], [place] [address]DrNeo Smyth PLT 384 103/ul Normal 150-450 [facility] Comment on above: Performed By: #### C BC ####[facility] Odsovouuqx237[address] [place], [place] [address]DrNeo Smyth RBC 4.59 106/ul Normal 4.20-5.40 [facility] Comment on above: Performed By: #### C BC ####[facility] Yjgvubugbu7[address] [place], [place] [address]DrNeo Smyth WBC 6.8 103/ul Normal 4.0-11.0 [facility] Comment on above: Performed By: #### C BC ####[facility] Zmqailgrqd6876[address] [place], [place] [address]Dr. Tadeo Smyth PROF CHEM 8 (BAS METB)on Anion gap [Moles/Vol] 13.8 mmol/L Normal [facility] Comment on above: Performed By: #### B MP ####[facility] Aqkczlyzjv2[address] [place], [place] [address]DrNeo Smyth Calcium [Mass/Vol] 9.6 mg/dL Normal 8.5-10.1 [facility] Comment on above: Performed By: #### B MP ####[facility] Layuoqxfcu3469[address] [place], [place] [address]Dr. Tadeo Smyth Chloride [Moles/Vol] 106 mmol/L Normal 98-107 [facility] Comment on above: Performed By: #### B MP ####[facility] Ssmrmvogdq3308 [place] [address]Dr. Margotnicole Haja CO2 [Moles/Vol] 25.9 mmol/L Normal 21.0-32.0 [facility] Comment on above: Performed By: #### B MP ####[facility] Aotunimsuy7045[address] [place], [place] [address]Dr. Tadeo Smyth Creatinine [Mass/Vol] 0.92 mg/dL Normal 0.55-1.02 [facility] Comment on above: Performed By: #### B MP ####[facility] Mytxoqrsgi1761[address] [place], [place] [address]Dr. Tadeo Smyth EGFR-AF PORTUGUESE >60 Normal >=60 [facility] Comment on above: Performed By: #### B MP ####[facility] Hkiiukdbpj843[address] [place], [place] [address]Dr. Margotnicole Haja EGFR-NON AF PORTUGUESE >60 Normal >=60 [facility] Comment on above: Performed By: #### B MP ####[facility] Sxvpgxsudk5627[address] [place], [place] [address]Dr. Tadeo Smyth Glucose [Mass/Vol] 98 mg/dL Normal 74-106 [facility] Comment on above: Performed By: #### B MP ####[facility] Teqobvzjtc5924[address] [place], [place] [address]Dr. Tadeo Smyth Potassium [Moles/Vol] 3.7 mmol/L Normal 3.5-5.1 [facility] Comment on above: Performed By: #### B MP ####[facility] Zfggubsvwg2489[address] [place], [place] [address]Dr. Tadeo Smyth Sodium [Moles/Vol] 142 mmol/L Normal 136-145 [facility] Comment on above: Performed By: #### B MP ####[facility] Zgkimqxhul832[address] [place], [place] [address]Dr. Tadeo Smyth Urea nitrogen [Mass/Vol] 19.0 mg/dL Critically high 7.0-18.0 [facility] Comment on above: Performed By: #### B MP ####[facility] Xqpygqqfqv2616 [place] [address]Dr. Margotnicole Smyth Urea nitrogen/Creatinine [Mass ratio] 20.7 mg/mg Normal [facility] Comment on above: Performed By: #### B MP ####[facility] Roclvchtom2889[address] [place], [place] [address]Dr. Tadeo Smyth XR KUB 1 VIEWon 09-21-2022 XR KUB 1 VIEW Normal [facility] AMYLASEon 09-18-2022 Amylase [Catalytic activity/Vol] 58 U/L Normal 25-115 [facility] Comment on above: Performed By: #### L IPA, CMP, VIJI ####[facility] Vnygkfyvui[address] [place], [place] [address]Dr. Margotnicole Haja CBC AUTO DIFFon 09-18-2022 BASO # 0.0 103/ul Normal 0.0-0.1 [facility] Comment on above: Performed By: #### C BC ####[facility] Mahtrgbnfn2[address] [place], [place] [address]Dr. Tadeo Smyth Basophils/100 WBC (Bld) 0.3 % Normal 0.2-2.0 [facility] Comment on above: Performed By: #### C BC ####[facility] Lmcpftuhtx9[address] [place], [place] [address]Dr. Margotnicole Haja EO # 0.1 103/ul Normal 0.0-0.7 [facility] Comment on above: Performed By: #### C BC ####[facility] Rbsegatfuf3393[address] [place], [place] [address]Dr. Tadeo Smyth Eosinophils/100 WBC (Bld) 1.8 % Normal 0.9-7.0 [facility] Comment on above: Performed By: #### C BC ####[facility] Gtzfhrrmcq760[address] [place], [place] [address]Dr. Tadeo Smyth Erythrocyte distribution width (RBC) [Ratio] 13.7 % Normal 11.0-15.0 [facility] Comment on above: Performed By: #### C BC ####[facility] Kjdceivmhh8[address] [place] [address]Dr. Tadeo Smyth Hematocrit (Bld) [Volume fraction] 37.4 % Normal 36.0-48.0 [facility] Comment on above: Performed By: #### C BC ####[facility] Tdtiuwofgu4100 [place] [address]Dr. Tadeo Smyth Hemoglobin (Bld) [Mass/Vol] 12.3 g/dL Normal 12.0-16.0 [facility] Comment on above: Performed By: #### C BC ####[facility] Bstuxuccug0431[address] [place], [place] [address]Dr. Tadeo Smyth IG # 0.02 10e3/ul Normal 0.00-0.03 [facility] Comment on above: Performed By: #### C BC ####[facility] Wvvhmjobcg1963[address] [place], [place] [address]Dr. Margotnicole Smyth IG % 0.3 % Normal 0.0-0.5 [facility] Comment on above: Performed By: #### C BC ####[facility] Ngftvfncbr6506[address] [place], [place] [address]Dr. Tadeo Haja LYMPH # 2.2 103/ul Normal 1.2-3.8 [facility] Comment on above: Performed By: #### C BC ####[facility] Mcsvjvdyri199[address] [place], [place] [address]Dr. Tadeo Smyth Lymphocytes/100 WBC (Bld) 29.3 % Normal 20.5-60.0 [facility] Comment on above: Performed By: #### C BC ####[facility] Dssewbzsgl3494[address] [place], [place] [address]Dr. Margotnicole Smyth MANUAL DIFF REQ NO Normal [facility] Comment on above: Performed By: #### C BC ####[facility] Yzyuzrifrd8436[address] [place], [place] [address]Dr. Tadeo Smyth MCH (RBC) [Entitic mass] 29.0 pg Normal 26.7-34.0 [facility] Comment on above: Performed By: #### C BC ####[facility] [address]kxek[address] [place] [id number]. Margotnicole Smyth MCHC (RBC) [Mass/Vol] 32.9 g/dL Normal 29.9-35.2 [facility] Comment on above: Performed By: #### C BC ####[facility] Mumgveolyt8065 [place] [id number]. Tadeo Smyth MCV (RBC) [Entitic vol] 88.2 fL Normal 81.0-99.0 [facility] Comment on above: Performed By: #### C BC ####[facility] Xktdzjvqza8344[address] [place], [place] [address]Dr. Tadeo Smyth MONO # 0.5 103/ul Normal 0.3-0.8 [facility] Comment on above: Performed By: #### C BC ####[facility] Hogqtppkhm3343[address] [place], [place] [address]Dr. Tadeo Smyth Monocytes/100 WBC (Bld) 6.4 % Normal 1.7-12.0 [facility] Comment on above: Performed By: #### C BC ####[facility] Nkcokixzee7116[address] [place], [place] [address]Dr. Tadeo Smyth NEUT # 4.7 103/ul Normal 1.4-6.5 [facility] Comment on above: Performed By: #### C BC ####[facility] Wijjrqopyf089[address] [place], [place] [address]Dr. Tadeo Smyth Neutrophils/100 WBC (Bld) 61.9 % Normal 43.0-75.0 [facility] Comment on above: Performed By: #### C BC ####[facility] Dzusibjoxg168[address] [place], [place] [address]Dr. Tadeo Smyth Platelet mean volume (Bld) [Entitic vol] 9.0 fL Critically low 9.5-13.5 [facility] Comment on above: Performed By: #### C BC ####[facility] Dxxspoccil0623[address] [place], [place] [address]Dr. Tadeo Smyth PLT 395 103/ul Normal 150-450 [facility] Comment on above: Performed By: #### C BC ####[facility] Edykqfoanl5432 [place] [address]Dr. Tadeo Smyth RBC 4.24 106/ul Normal 4.20-5.40 [facility] Comment on above: Performed By: #### C BC ####[facility] Tocsoyiith9780 [place] [address]Dr. Tadeo Smyth WBC 7.6 103/ul Normal 4.0-11.0 [facility] Comment on above: Performed By: #### C BC ####[facility] Auuiwxckzx5866[address] [place], [place] [address]Dr. Tadeo Smyth CT ABD/PELV W CONon 09-18-[address] ABD/PELV W CON Normal [facility] ER URINE PROFILEon 3 Bilirubin Ql (U) SMALL Abnormal NEGATIVE [facility] Comment on above: Performed By: #### SANDRO MERCHANTRO ####[facility] Jahusajxyi5809[address] [place], [place] [address]Dr. Tadeo Haja Clarity (U) CLEAR Normal CLEAR [facility] Comment on above: Performed By: #### SANDRO MERCHANTRO ####[facility] Fpvadatwgo5203[address] [place], [place] [address]Dr. Tadeo Smyth Color (U) DK. YELLOW Normal YELLOW [facility] Comment on above: Performed By: #### SANDRO MERCHANTRO ####[facility] Gkkpvnpeem6[address] [place], [place] [address]Dr. Tadeo Smyth ERUAHD A micrscopic examina tion will be performed if indicated. Normal [facility] Comment on above: Performed By: #### SANDRO MERCHANTRO ####[facility] Tpwemhztxw9799[address] [place], [place] [address]Dr. Tadeo Smyth Glucose Ql (U) Negative Normal NEGATIVE [facility] Comment on above: Performed By: #### SANDRO MERCHANTRO ####[facility] Quzmjrrfra4677[address] [place], [place] [address]Dr. Tadeo Smyth Hemoglobin Ql (U) SMALL Abnormal NEGATIVE [facility] Comment on above: Performed By: #### KAROL MERCHANT ####[facility] Exnbbefajq2230 [place] [address]Dr. Tadeo Smyth Ketones Ql (U) Negative Normal NEGATIVE [facility] Comment on above: Performed By: #### KAROL MERCHANT ####[facility] Nzncaocrid5951 [place] [address]Dr. Tadeo Smyth LEUKOCYTES Negative Normal NEGATIVE [facility] Comment on above: Performed By: #### KAROL MERCHANT ####[facility] Noeyxnjrbv3256[address] [place], [place] [address]Dr. Tadeo Smyth Nitrite Ql (U) Negative Normal NEGATIVE [facility] Comment on above: Performed By: #### KAROL MERCHANT ####[facility] Vtowsuaxaa2186[address] [place], [place] [address]Dr. Tadeo Smyth pH (U) 5.5 [pH] Normal 5-9 [facility] Comment on above: Performed By: #### KAROL MERCHANT ####[facility] Plpbgdxjxt8631[address] [place], [place] [address]Dr. Tadeo Smyth SPEC GRAVITY >=1.030 Abnormal 1.005-<=1.0 25 [facility] Comment on above: Performed By: #### KAROL MERCHANT ####[facility] Bdpwynnjfg[address] [place], [place] [address]Dr. Tadeo Smyth UA PROTEIN TRACE Normal NEGATIVE/ TRACE [facility] Comment on above: Performed By: #### KAROL MERCHANT ####[facility] Kztswmurqn[address] [place], [place] [address]Dr. Tadeo Smyth UR MICRO IND INDICATED Normal [facility] Comment on above: Performed By: #### KAROL MERCHANT ####[facility] Fhxuinssjz1314[address] [place], [place] [address]Dr. Tadeo Smyth Urobilinogen Qn (U) 0.2 {Benito'U}/dL Normal 0.2 - 1. 0 [facility] Comment on above: Performed By: #### KAROL MERCHANT ####[facility] Aehxafwtca8[address] [place] [address]Dr. Tadeo Smyth LACTATE/LACTIC ACIDon 2022 Lactate [Moles/Vol] 1.1 mmol/L Normal 0.4-1.[address] [facility] Comment on above: Performed By: #### L ACT ####[facility] Xwbihvjchp7436 [place] [address]Dr. Tadeo Smyth LIPASEon 09-18-2022 Lipase [Catalytic activity/Vol] 75.0 U/L Normal 73.0-393.0 [facility] Comment on above: Performed By: #### L IPA, CMP, VIJI ####[facility] Srruyiiciv6162 [place] [address]Dr. Tadeo Smyth PROF 14(COMP METB)on 023 Albumin [Mass/Vol] 3.4 g/dL Normal 3.4-5.0 [facility] Comment on above: Performed By: #### L IPA, CMP, VIJI ####[facility] Vdfqexrukr7976[address] [place], [place] [address]Dr. Tadeo Smyth Albumin/Globulin [Mass ratio] 0.9 {ratio} Normal [facility] Comment on above: Performed By: #### L IPA, CMP, VIJI ####[facility] Lxemgwbkue6937 [place] [address]Dr. Tadeo Smyth ALP [Catalytic activity/Vol] 164 U/L Critically high 46-116 [facility] Comment on above: Performed By: #### L IPA, CMP, VIJI ####[facility] Uikcdsrcng1931 [place] [address]Dr. Tadeo Smyth ALT [Catalytic activity/Vol] 29 U/L Normal 14-59 [facility] Comment on above: Performed By: #### L IPA, CMP, VIJI ####[facility] Vxbumkgkcw1710 [place] [address]Dr. Tadeo Smyth Anion gap [Moles/Vol] 12.3 mmol/L Normal [facility] Comment on above: Performed By: #### L IPA, CMP, VIJI ####[facility] Rbbdpppmvh6325 [place] [address]Dr. Tadeo Smyth AST [Catalytic activity/Vol] 30 U/L Normal 15-37 [facility] Comment on above: Performed By: #### L IPA, CMP, VIJI ####[facility] Gevjbyouev[address] [place] [address]Dr. Tadeo Smyth Bilirubin [Mass/Vol] 0.3 mg/dL Normal 0.2-1.0 [facility] Comment on above: Performed By: #### L IPA, CMP, VIJI ####[facility] Qvdlctvncm9[address] [place], [place] [address]Dr. Tadeo Smyth Calcium [Mass/Vol] 8.9 mg/dL Normal 8.5-10.1 [facility] Comment on above: Performed By: #### L IPA, CMP, VIJI ####[facility] Dadhceignd638[address] [place], [place] [address]Dr. Tadeo Smyth Chloride [Moles/Vol] 103 mmol/L Normal 98-107 [facility] Comment on above: Performed By: #### L IPA, CMP, VIJI ####[facility] Rgehaqweyw5[address] [place], [place] [address]Dr. Tadeo Smyth CO2 [Moles/Vol] 27.8 mmol/L Normal 21.0-32.0 [facility] Comment on above: Performed By: #### L IPA, CMP, VIJI ####[facility] Jugbgjtjhq069[address] [place], [place] [address]Dr. Tadeo Smyth Creatinine [Mass/Vol] 0.89 mg/dL Normal 0.55-1.02 [facility] Comment on above: Performed By: #### L IPA, CMP, VIJI ####[facility] Ldlzmqbydh[address] [place], [place] [address]Dr. Tadeo Smyth EGFR-AF PORTUGUESE >60 Normal >=60 [facility] Comment on above: Performed By: #### L IPA, CMP, VIJI ####[facility] Qelzbvzhex6551[address] [place], [place] [address]Dr. Tadeo Smyth EGFR-NON AF PORTUGUESE >60 Normal >=60 [facility] Comment on above: Performed By: #### L IPA, CMP, VIJI ####[facility] Nnclcsngin6873 [place] [address]Dr. Tadeo Smyth Globulin (S) [Mass/Vol] 3.9 g/dL Normal [facility] Comment on above: Performed By: #### L IPA, CMP, VIJI ####[facility] Opbieshzqm2931 [place] [address]Dr. Tadeo Smyth Glucose [Mass/Vol] 96 mg/dL Normal 74-106 [facility] Comment on above: Performed By: #### L IPA, CMP, VIJI ####[facility] Psqofzzhxj9317 [place] [address]Dr. Tadeo Smyth Potassium [Moles/Vol] 4.1 mmol/L Normal 3.5-5.1 [facility] Comment on above: Performed By: #### L IPA, CMP, VIJI ####[facility] Okwnkmispw44[address] [place], [place] [address]Dr. Tadeo Smyth Protein [Mass/Vol] 7.3 g/dL Normal 6.4-8.2 [facility] Comment on above: Performed By: #### L IPA, CMP, VIJI ####[facility] Ppbgswuynq88[address] [place], [place] [address]Dr. Tadeo Smyth Sodium [Moles/Vol] 139 mmol/L Normal 136-145 [facility] Comment on above: Performed By: #### L IPA, CMP, VIJI ####[facility] Rgibgyyykv037[address] [place], [place] [address]Dr. Tadeo Smyth Urea nitrogen [Mass/Vol] 19.0 mg/dL Critically high 7.0-18.0 [facility] Comment on above: Performed By: #### L IPA, CMP, VIJI ####[facility] Atqckmiglu8[address] [place], [place] [address]Dr. Tadeo Smyth Urea nitrogen/Creatinine [Mass ratio] 21.3 mg/mg Normal [facility] Comment on above: Performed By: #### L IPA, CMP, VIJI ####[facility] Xyvcdyekis407[address] [place], [place] [address]Dr. Tadeo Smyth URINE MICROSCOPIC ONLYon BACTERIA TRACE Abnormal NONE SEEN [facility] Comment on above: Performed By: #### Matthew FRANCISCO UMICRO ####[facility] Lllniatrdn[address] [place], [place] [address]Dr. Tadeo Smyth Bacteria identified Cx Nom (U) NOT INDICATED Normal [facility] Comment on above: Performed By: #### Matthew FRANCISCO UMICRO ####[facility] Vxrnrybane8538[address] [place], [place] [address]Dr. Tadeo Smyth CAST NONE SEEN Normal NONE SEEN [facility] Comment on above: Performed By: #### Matthew FRANCISCO UMICRO ####[facility] Wmpfaajqdl00[address] [place], [place] [address]Dr. Tadeo Smyth Crystals LM Nom (Urine sed) SEEN Abnormal NONE SEEN [facility] Comment on above: Performed By: #### Matthew FRANCISCO UMICRO ####[facility] Zkdmcdnxtz14[address] [place], [place] [address]Dr. Tadeo Smyth Epithelial cells LM Ql (Urine sed) RARE Normal NONE SEEN /RARE [facility] Comment on above: Performed By: #### Matthew FRANCISCO UMICRO ####[facility] Slzygystzi59[address] [place], [place] [address]Dr. Tadeo Smyth MUCOUS TRACE Abnormal NONE SEEN [facility] Comment on above: Performed By: #### Matthew FRANCISCO UMICRO ####[facility] Uscgeyyuqa25[address] [place], [place] [address]Dr. Tadeo Smyth RBC 0-2 Normal 0-2 [facility] Comment on above: Performed By: #### Matthew FRANCISCO UMICRO ####[facility] Bsypopjgui[address] [place], [place] [address]Dr. Tadeo Smyth WBC 0-2 Abnormal NONE SEEN [facility] Comment on above: Performed By: #### Matthew FRANCISCO UMICRO ####[facility] Erhtzjzfza38[address] [place], [place] [address]Dr. Tadeo Smyth CBC AUTO DIFFon 09-14-2022 BASO # 0.0 103/ul Normal 0.0-0.1 [facility] Comment on above: Performed By: #### C BC ####[facility] Rxhggfumdu9806 [place] [id number]. Tadeo Smyth Basophils/100 WBC (Bld) 0.3 % Normal 0.2-2.0 [facility] Comment on above: Performed By: #### C BC ####[facility] Griszonked[address] [place], [place] [address]Dr. Tadeo Smyth EO # 0.2 103/ul Normal 0.0-0.7 [facility] Comment on above: Performed By: #### C BC ####[facility] Dhlyvrghuy[address] [place], [place] [address]Dr. Tadeo Smyth Eosinophils/100 WBC (Bld) 1.1 % Normal 0.9-7.0 [facility] Comment on above: Performed By: #### C BC ####[facility] Wzgietaduq64[address] [place], [place] [address]Dr. Tadeo Smyth Erythrocyte distribution width (RBC) [Ratio] 13.7 % Normal 11.0-15.0 [facility] Comment on above: Performed By: #### C BC ####[facility] Titvfmegad[address] [place], [place] [address]Dr. Tadeo Smyth Hematocrit (Bld) [Volume fraction] 41.3 % Normal 36.0-48.0 [facility] Comment on above: Performed By: #### C BC ####[facility] Rimpzifpho[address] [place], [place] [address]Dr. Tadeo Smyth Hemoglobin (Bld) [Mass/Vol] 13.6 g/dL Normal 12.0-16.0 [facility] Comment on above: Performed By: #### C BC ####[facility] Rimdklnnsq[address] [place], [place] [address]Dr. Tadeo Smyth IG # 0.05 10e3/ul Critically high 0.00-0.03 [facility] Comment on above: Performed By: #### C BC ####[facility] Tvirpwpckq[address] [place], [place] [address]Dr. Tadeo Smyth IG % 0.4 % Normal 0.0-0.5 [facility] Comment on above: Performed By: #### C BC ####[facility] Xjvkctkjgu7904 [place] [phone]. Tadeo Smyth LYMPH # 2.2 103/ul Normal 1.2-3.8 [facility] Comment on above: Performed By: #### C BC ####[facility] Kwrqvtcmdr6136 [place] [phone]. Tadeo Smyth Lymphocytes/100 WBC (Bld) 16.3 % Critically low 20.5-60.0 [facility] Comment on above: Performed By: #### C BC ####[facility] Ivnlddcirt1402 [place] [phone]. Margotnicole Smyth MANUAL DIFF REQ NO Normal [facility] Comment on above: Performed By: #### C BC ####[facility] Oveaixouow0931 [place] [phone]. Tadeo Haja MCH (RBC) [Entitic mass] 28.9 pg Normal 26.7-34.0 [facility] Comment on above: Performed By: #### C BC ####[facility] Myuwxdrgba7083 [place] [phone]. Tadeo Smyth MCHC (RBC) [Mass/Vol] 32.9 g/dL Normal 29.9-35.2 [facility] Comment on above: Performed By: #### C BC ####[facility] Chybqsftck1997 [place] [phone]. Tadeo Haja MCV (RBC) [Entitic vol] 87.9 fL Normal 81.0-99.0 [facility] Comment on above: Performed By: #### C BC ####[facility] Bwceplosgl0494 [place] [phone]. Tadeo Smyth MONO # 0.7 103/ul Normal 0.3-0.8 [facility] Comment on above: Performed By: #### C BC ####[facility] Evzyxyajli6586 [place] [phone]. Tadeo Haja Monocytes/100 WBC (Bld) 5.1 % Normal 1.7-12.0 [facility] Comment on above: Performed By: #### C BC ####[facility] Klrkaoeari4787 [place] [phone]. Tadeo Smyth NEUT # 10.3 103/ul Critically high 1.4-6.5 [facility] Comment on above: Performed By: #### C BC ####[facility] Ndjrnqscsc7866 [place] [phone]. Tadeo Smyth Neutrophils/100 WBC (Bld) 76.8 % Critically high 43.0-75.0 [facility] Comment on above: Performed By: #### C BC ####[facility] Tacsboteap0442 [place] [address]Dr. Tadeo Smyth Platelet mean volume (Bld) [Entitic vol] 8.8 fL Critically low 9.5-13.5 [facility] Comment on above: Performed By: #### C BC ####[facility] Pavbcmfymg23[address] [place], [place] [address]Dr. Tadeo Smyth PLT 438 103/ul Normal 150-450 [facility] Comment on above: Performed By: #### C BC ####[facility] Csbslkvsbj0[address] [place], [place] [address]Dr. Tadeo Smyth RBC 4.70 106/ul Normal 4.20-5.40 [facility] Comment on above: Performed By: #### C BC ####[facility] Esgzafjxbh4697 [place] [address]Dr. Tadeo Smyth WBC 13.4 103/ul Critically high 4.0-11.0 [facility] Comment on above: Performed By: #### C BC ####[facility] Lweotaijfm[address] [place], [place] [address]Dr. Tadeo Smyth ER URINE PROFILEon 3 Bilirubin Ql (U) Negative Normal NEGATIVE [facility] Comment on above: Performed By: #### KAROL MERCHANT ####[facility] Gfpnxvhitp8995 [place] [address]Dr. Tadeo Smyth Clarity (U) CLEAR Normal CLEAR [facility] Comment on above: Performed By: #### KAROL MERCHANT ####[facility] Rcbzktuuot8362 [place] [address]Dr. Tadeo Smyth Color (U) LT. YELLOW Normal YELLOW [facility] Comment on above: Performed By: #### KAROL MERCHANT ####[facility] Hbajislogp9971 [place] [address]Dr. Tadeo Smyth ERUAHD A micrscopic examina tion will be performed if indicated. Normal [facility] Comment on above: Performed By: #### KAROL MERCHANT ####[facility] Ypmiimqqst1634 [place] [address]Dr. Tadeo Smyth Glucose Ql (U) Negative Normal NEGATIVE [facility] Comment on above: Performed By: #### KAROL MERCHANT ####[facility] Wdfezpwits[address] [place], [place] [address]Dr. Tadeo Smyth Hemoglobin Ql (U) TRACE-INTACT Abnormal NEGATIVE [facility] Comment on above: Performed By: #### KAROL MERCHANT ####[facility] Hjratyvead71[address] [place], [place] [address]Dr. Tadeo Smyth Ketones Ql (U) Negative Normal NEGATIVE [facility] Comment on above: Performed By: #### KAROL MERCHANT ####[facility] Hmztrxnkft9[address] [place], [place] [address]Dr. Tadeo Smyth LEUKOCYTES Negative Normal NEGATIVE [facility] Comment on above: Performed By: #### SANDRO MERCHANTRO ####[facility] Sxexokanus46[address] [place], [place] [address]Dr. Tadeo Smyth Nitrite Ql (U) Negative Normal NEGATIVE [facility] Comment on above: Performed By: #### KAROL MERCHANT ####[facility] Uahaagtmxd19[address] [place], [place] [address]Dr. Tadeo Smyth pH (U) 6.5 [pH] Normal 5-9 [facility] Comment on above: Performed By: #### KAROL MERCHANT ####[facility] Hasijoymce15[address] [place], [place] [address]Dr. Tadeo Smyth SPEC GRAVITY 1.020 Normal 1.005-<=1.0 25 [facility] Comment on above: Performed By: #### KAROL MERCHANT ####[facility] Nfaaylhymr0417 [place] [address]Dr. Tadeo Smyth UA PROTEIN Negative Normal NEGATIVE/ TRACE [facility] Comment on above: Performed By: #### KAROL MERCHANT ####[facility] Jtmxueglvq9665 [place] [address]Dr. Tadeo Smyth UR MICRO IND INDICATED Normal [facility] Comment on above: Performed By: #### KAROL MERCHANT ####[facility] Urtpwrrcqc6668 [place] [address]Dr. Tadeo Smyth Urobilinogen Qn (U) 0.2 {Benito'U}/dL Normal 0.2 - 1. 0 [facility] Comment on above: Performed By: #### KAROL MERCHANT ####[facility] Czcsukzevy6896 [place] [address]Dr. Tadeo Smyth LIPASEon 09-14-2022 Lipase [Catalytic activity/Vol] 117.0 U/L Normal 73.0-393.0 [facility] Comment on above: Performed By: #### H STROYAZMIN, CMP, LIPA ####[facility] Joxjdvnmte7437 [place] [address]DrNeo Smyth PROF 14(COMP METB)on 023 Albumin [Mass/Vol] 3.5 g/dL Normal 3.4-5.0 [facility] Comment on above: Performed By: #### H STROPN, CMP, LIPA ####[facility] Tcjbbrvxne6162 [place] [address]Dr. Tadeo Smyth Albumin/Globulin [Mass ratio] 0.8 {ratio} Normal [facility] Comment on above: Performed By: #### H STROPN, CMP, LIPA ####[facility] Kthzrlzzrl8568 [place] [address]Dr. Tadeo Smyth ALP [Catalytic activity/Vol] 180 U/L Critically high 46-116 [facility] Comment on above: Performed By: #### H STROPN, CMP, LIPA ####[facility] Cqazrpjduw8654 [place] [address]Dr. Tadeo Smyth ALT [Catalytic activity/Vol] 25 U/L Normal 14-59 [facility] Comment on above: Performed By: #### H STROPN, CMP, LIPA ####[facility] Kdzjwkdrvn0367 [place] [address]Dr. Tadeo Smyth Anion gap [Moles/Vol] 14.4 mmol/L Normal [facility] Comment on above: Performed By: #### H STROPN, CMP, LIPA ####[facility] Pqpjkmgjrc1832 [place] [address]Dr. Tadeo Smyth AST [Catalytic activity/Vol] 14 U/L Critically low 15-37 [facility] Comment on above: Performed By: #### H STROPN, CMP, LIPA ####[facility] Apkqgeqsbg8127 [place] [address]Dr. Tadeo Smyth Bilirubin [Mass/Vol] 0.2 mg/dL Normal 0.2-1.0 [facility] Comment on above: Performed By: #### H STROPN, CMP, LIPA ####[facility] Vwvfehjxey4395 [place] [address]Dr. Tadeo Smyth Calcium [Mass/Vol] 9.4 mg/dL Normal 8.5-10.1 [facility] Comment on above: Performed By: #### H STROPN, CMP, LIPA ####[facility] Zvtmjtkxsk9730 [place] [address]Dr. Tadeo Smyth Chloride [Moles/Vol] 107 mmol/L Normal 98-107 [facility] Comment on above: Performed By: #### H STROPN, CMP, LIPA ####[facility] Wmxmktlyvx9498 [place] [address]Dr. Tadeo Smyth CO2 [Moles/Vol] 23.9 mmol/L Normal 21.0-32.0 [facility] Comment on above: Performed By: #### H STROPN, CMP, LIPA ####[facility] Tobbvausen[address]1 [place] [phone]. Tadeo Smyth Creatinine [Mass/Vol] 0.91 mg/dL Normal 0.55-1.02 [facility] Comment on above: Performed By: #### H STROPN, CMP, LIPA ####[facility] Bmhlcmizif6166 [place] [phone]. Tadeo Smyth EGFR-AF PORTUGUESE >60 Normal >=60 [facility] Comment on above: Performed By: #### H STROPN, CMP, LIPA ####[facility] Jathmcnmsa7024 [place] [address]Dr. Tadeo Smyth EGFR-NON AF PORTUGUESE >60 Normal >=60 [facility] Comment on above: Performed By: #### H STROPN, CMP, LIPA ####[facility] Wukztmaudx6960 [place] [address]Dr. Tadeo Smyth Globulin (S) [Mass/Vol] 4.2 g/dL Normal [facility] Comment on above: Performed By: #### H STROPN, CMP, LIPA ####[facility] Kbxsfsaqus7488 [place] [address]Dr. Tadeo Smyth Glucose [Mass/Vol] 101 mg/dL Normal 74-106 [facility] Comment on above: Performed By: #### H STROPN, CMP, LIPA ####[facility] Xljkwzfhwi3605 [place] [address]Dr. Tadeo Smyth Potassium [Moles/Vol] 3.3 mmol/L Critically low 3.5-5.1 [facility] Comment on above: Performed By: #### H STROPN, CMP, LIPA ####[facility] Cepvtsetnf4722 [place] [address]Dr. Tadeo Smyth Protein [Mass/Vol] 7.7 g/dL Normal 6.4-8.2 [facility] Comment on above: Performed By: #### H STROPN, CMP, LIPA ####[facility] Gqybfaieos8704 [place] [address]Dr. Tadeo Smyth Sodium [Moles/Vol] 142 mmol/L Normal 136-145 [facility] Comment on above: Performed By: #### H STROPN, CMP, LIPA ####[facility] Gcuoeuoedy4334 [place] [address]Dr. Tadeo Smyth Urea nitrogen [Mass/Vol] 17.0 mg/dL Normal 7.0-18.0 [facility] Comment on above: Performed By: #### H STROPN, CMP, LIPA ####[facility] Rilvwlljcc8687 [place] [address]Dr. Tadeo Smyth Urea nitrogen/Creatinine [Mass ratio] 18.7 mg/mg Normal [facility] Comment on above: Performed By: #### H STROYAZMIN, CMP, LIPA ####[facility] Jkhtnznbpd9308 [place] [address]Dr. Tadeo Smyth TROPONIN, HIGH SENSITIVITYon 09-14-2022 HSTROP 46.6 pg/mL Normal 4.0-51.3 [facility] Comment on above: Result Comment: CUT- OFF POINTS HAVE BEEN ESTABLISHED BASED ON THE FOURTH UNIVERSAL DEFINITIONS OF MYOCARDIALINFARCTION. THE UPPER REFERENCE LIMIT (URL) OF TROPONIN, DEFINED THE 99TH PERCENTILE OFcTnI DISTRIBUTION IN A REFERENCE POPULATION, HAS BEEN CONFIRMED THE DECISION THRESHOLDFOR MT DIAGNOSIS. Performed By: #### H HENRY, CMP, LIPA ####[facility] Gxvgxmsdlj1106 [place] [address]Dr. Tadeo Smyth URINE MICROSCOPIC ONLYon BACTERIA NONE SEEN Normal NONE SEEN [facility] Comment on above: Performed By: #### KAROL MERCHANT ####[facility] Aczwpqsiss7078 [place] [address]Dr. Tadeo Smyth Bacteria identified Cx Nom (U) NOT INDICATED Normal [facility] Comment on above: Performed By: #### SANDRO MERCHANTRO ####[facility] Ukjispzslg3583 [place] [address]Dr. Tadeo Smyth CAST NONE SEEN Normal NONE SEEN [facility] Comment on above: Performed By: #### KAROL MERCHANT ####[facility] Cxhdxbgmvu3431 [place] [address]Dr. Tadeo Smyth Crystals LM Nom (Urine sed) NONE SEEN Normal NONE SEEN [facility] Comment on above: Performed By: #### SANDRO MERCHANTRO ####[facility] Glkxiejefl5805 [place] [address]Dr. Tadeo Smyth Epithelial cells LM Ql (Urine sed) FEW Abnormal NONE SEEN /RARE [facility] Comment on above: Performed By: #### Matthew FRANCISCO UMICRO ####[facility] Vtfxuedzsq3023 [place] [phone]. Tadeo Smyth MUCOUS MODERATE Abnormal NONE SEEN [facility] Comment on above: Performed By: #### Matthew FRANCISCO UMICRO ####[facility] Zahmdzlmph0906 [place] [address]Dr. Tadeo Smyth RBC 0-2 Normal 0-2 [facility] Comment on above: Performed By: #### SANDRO MERCHANTRO ####[facility] Ppakpcrrce6973 [place] [address]Dr. Tadeo Smyth WBC NONE SEEN Normal NONE SEEN [facility] Comment on above: Performed By: #### Matthew FRANCISCO UMICRO ####[facility] Kwglhbzyqi9492 [place] [address]Dr. Tadeo Smyth XR ABD FLAT UP_PA Kasey 09-14 XR ABD FLAT UP_PA CH Normal [facility] VC COMP CONSULTATIONon 09-06 VC COMP CONSULTATION Normal [facility] VC VENOUS REFLUX MACARIO LMTon 0 09-06-2022 VC VENOUS REFLUX MACARIO LMT Normal [facility] XR KUB 1 VIEWon 08-18-2022 XR KUB 1 VIEW Normal [facility] US RUBENS DOP LEG RTon 08-11-20 22 US RUBENS DOP LEG RT Normal [facility] AMYLASEon 08-08-2022 Amylase [Catalytic activity/Vol] 64 U/L Normal 25-115 [facility] Comment on above: Performed By: #### C MP, VIJI, LIPA, CMADM ####[facility] Smgkxcpxzx6880 [place] [address]Dr. Tadeo Smyth CARDIAC NORA ADMITon 022 CK [Catalytic activity/Vol] 127 U/L Normal 26-192 [facility] Comment on above: Performed By: #### C MP, VIJI, LIPA, CMADM ####[facility] Kcxmalqihs1050 [place] [address]Dr. Tadeo Smyth CK.MB [Mass/Vol] 1.71 ng/mL Normal <=3.60 [facility] Comment on above: Performed By: #### C MP, VIJI, LIPA, CMADM ####[facility] Ifsdlqcqfi0348 [place] [address]Dr. Tadeo Smyth HSTROP 36.7 pg/mL Normal 4.0-51.3 [facility] Comment on above: Result Comment: CUT- OFF POINTS HAVE BEEN ESTABLISHED BASED ON THE FOURTH UNIVERSAL DEFINITIONS OF MYOCARDIALINFARCTION. THE UPPER REFERENCE LIMIT (URL) OF TROPONIN, DEFINED THE 99TH PERCENTILE OFcTnI DISTRIBUTION IN A REFERENCE POPULATION, HAS BEEN CONFIRMED THE DECISION THRESHOLDFOR MT DIAGNOSIS. Performed By: #### C MP, VIJI, LIPA, CMADM ####[facility] Ozfjucgkmo2028 [place] [address]Dr. Tadeo Smyth AAKASH 23 ng/mL Normal 9-82 [facility] Comment on above: Performed By: #### C MP, VIJI, LIPA, CMADM ####[facility] Axiyesyufi5342 [place] [address]Dr. Tadeo Smyth CBC AUTO DIFFon 08-08-2022 BASO # 0.0 103/ul Normal 0.0-0.1 [facility] Comment on above: Performed By: #### C BC ####[facility] Mgxjxbefjm4250 [place] [address]Dr. Tadeo Smyth Basophils/100 WBC (Bld) 0.4 % Normal 0.2-2.0 [facility] Comment on above: Performed By: #### C BC ####[facility] Bygkisfkyg4051 [place] [address]Dr. Tadeo Smyth EO # 0.1 103/ul Normal 0.0-0.7 [facility] Comment on above: Performed By: #### C BC ####[facility] Slcuzcpcab7872 [place] [phone]. Tadeo Smyth Eosinophils/100 WBC (Bld) 1.5 % Normal 0.9-7.0 [facility] Comment on above: Performed By: #### C BC ####[facility] Ujxfpagcnc2612 [place] [address]Dr. Tadeo Smyth Erythrocyte distribution width (RBC) [Ratio] 13.5 % Normal 11.0-15.0 [facility] Comment on above: Performed By: #### C BC ####[facility] Ordzlufewx97[address] [place], [place] [address]Dr. Tadeo Smyth Hematocrit (Bld) [Volume fraction] 37.0 % Normal 36.0-48.0 [facility] Comment on above: Performed By: #### C BC ####[facility] Avrlfcejmi64[address] [place], [place] [address]Dr. Tadeo Smyth Hemoglobin (Bld) [Mass/Vol] 12.0 g/dL Normal 12.0-16.0 [facility] Comment on above: Performed By: #### C BC ####[facility] Vwtjcosfjw2864 [place] [address]Dr. Tadeo Smyth IG # 0.02 10e3/ul Normal 0.00-0.03 [facility] Comment on above: Performed By: #### C BC ####[facility] Pgvfstpskw[address] [place], [place] [address]Dr. Tadeo Smyth IG % 0.3 % Normal 0.0-0.5 [facility] Comment on above: Performed By: #### C BC ####[facility] Ioxnkwbycj[address] [place], [place] [address]Dr. Tadeo Smyth LYMPH # 2.0 103/ul Normal 1.2-3.8 [facility] Comment on above: Performed By: #### C BC ####[facility] Qsvrwsbvvt84[address] [place], [place] [address]Dr. Tadeo Smyth Lymphocytes/100 WBC (Bld) 27.9 % Normal 20.5-60.0 [facility] Comment on above: Performed By: #### C BC ####[facility] Pdzckhxdat6407 [place] [phone]. Tadeo Smyth MANUAL DIFF REQ NO Normal [facility] Comment on above: Performed By: #### C BC ####[facility] Xmtmnmkkrh4337 [place] [phone]. Tadeo Smyth MCH (RBC) [Entitic mass] 28.9 pg Normal 26.7-34.0 [facility] Comment on above: Performed By: #### C BC ####[facility] Avinrfriem8424 [place] [address]Dr. Tadeo Smyth MCHC (RBC) [Mass/Vol] 32.4 g/dL Normal 29.9-35.2 [facility] Comment on above: Performed By: #### C BC ####[facility] Sgjytgabbs7131 [place] [address]Dr. Tadeo Haja MCV (RBC) [Entitic vol] 89.2 fL Normal 81.0-99.0 [facility] Comment on above: Performed By: #### C BC ####[facility] Lmdnbiilkw6559 [place] [phone]. Tadeo Haja MONO # 0.5 103/ul Normal 0.3-0.8 [facility] Comment on above: Performed By: #### C BC ####[facility] Youaoyeoaq1272 [place] [address]Dr. Margotnicole Smyth Monocytes/100 WBC (Bld) 6.7 % Normal 1.7-12.0 [facility] Comment on above: Performed By: #### C BC ####[facility] Phyrxzikta9733 [place] [phone]. Tadeo Smyth NEUT # 4.5 103/ul Normal 1.4-6.5 [facility] Comment on above: Performed By: #### C BC ####[facility] Jchyerpesu0360 [place] [address]Dr. Tadeo Smyth Neutrophils/100 WBC (Bld) 63.2 % Normal 43.0-75.0 [facility] Comment on above: Performed By: #### C BC ####[facility] Bqzzsqtcya8173 [place] [phone]. Margotnicole Haja Platelet mean volume (Bld) [Entitic vol] 9.0 fL Critically low 9.5-13.5 [facility] Comment on above: Performed By: #### C BC ####[facility] Lyygjdjsdg1532 [place] [phone]. Margotnicole Smyth PLT 382 103/ul Normal 150-450 [facility] Comment on above: Performed By: #### C BC ####[facility] Mljksuycwo4548 [place] [phone]. Margotnicole Haja RBC 4.15 106/ul Critically low 4.20-5.40 [facility] Comment on above: Performed By: #### C BC ####[facility] Pypzowngnb8120 [place] [address]Dr. Tadeo Smyth WBC 7.1 103/ul Normal 4.0-11.0 [facility] Comment on above: Performed By: #### C BC ####[facility] Apenclxtmy[address] [place], [place] [address]Dr. Tadeo Smyth CT ABD/PELV W CONon 08-08-[address] ABD/PELV W CON Normal [facility] ER URINE PROFILEon 2 Bilirubin Ql (U) Negative Normal NEGATIVE [facility] Comment on above: Performed By: #### SANDRO MERCHANTRO ####[facility] Ovfpqqwyxz8277 [place] [address]Dr. Tadeo Smyth Clarity (U) CLEAR Normal CLEAR [facility] Comment on above: Performed By: #### SANDRO MERCHANTRO ####[facility] Uvlfqewxzq1994 [place] [address]Dr. Tadeo Smyth Color (U) YELLOW Normal YELLOW [facility] Comment on above: Performed By: #### RANDI MERCHANTICRO ####[facility] Txrijrrmpr1625 [place] [address]Dr. Tadeo Smyth ERUAHD A micrscopic examina tion will be performed if indicated. Normal [facility] Comment on above: Performed By: #### KAROL MERCHANT ####[facility] Odpnctzfww[address] [place], [place] [address]Dr. Tadeo Smyth Glucose Ql (U) Negative Normal NEGATIVE [facility] Comment on above: Performed By: #### SANDRO MERCHANTRO ####[facility] Yasvvkpvoj46[address] [place], [place] [address]Dr. Margotnicole Smyth Hemoglobin Ql (U) TRACE-LYSED Abnormal NEGATIVE [facility] Comment on above: Performed By: #### SANDRO MERCHANTRO ####[facility] Aotunqzjzw95[address] [place], [place] [address]Dr. Tadeo Smyth Ketones Ql (U) TRACE Abnormal NEGATIVE [facility] Comment on above: Performed By: #### SANDRO MERCHANTRO ####[facility] Erfwdgfqdt27[address] [place], [place] [address]Dr. Tadeo Smyth LEUKOCYTES Negative Normal NEGATIVE [facility] Comment on above: Performed By: #### KAROL MERCHANT ####[facility] Oftgrthrmd01[address] [place], [place] [address]Dr. Margotnicole Smyth Nitrite Ql (U) Negative Normal NEGATIVE [facility] Comment on above: Performed By: #### KAROL MERCHANT ####[facility] Iqrshjwjef[address] [place], [place] [address]Dr. Margotnicole Smyth pH (U) 6.0 [pH] Normal 5-9 [facility] Comment on above: Performed By: #### KAROL MERCHANT ####[facility] Jafshdyndk[address] [place], [place] [address]Dr. Tadeo Smyth SPEC GRAVITY >=1.030 Abnormal 1.005-<=1.0 25 [facility] Comment on above: Performed By: #### KAROL MERCHANT ####[facility] Xeiwtfsqcd[address] [place], [place] [address]Dr. Tadeo Smyth UA PROTEIN TRACE Normal NEGATIVE/ TRACE [facility] Comment on above: Performed By: #### KAROL MERCHANT ####[facility] Yhgkdodwgu23[address] [place], [place] [address]Dr. Tadeo Smyth UR MICRO IND INDICATED Normal [facility] Comment on above: Performed By: #### KAROL MERCHANT ####[facility] Ilcnbnrlpd[address] [place] [address]Dr. Tadeo Smyth Urobilinogen Qn (U) 0.2 {Benito'U}/dL Normal 0.2 - 1. 0 [facility] Comment on above: Performed By: #### KAROL MERCHANT ####[facility] Savwceqtvq[address] [place] [address]Dr. Tadeo Smyth LACTATE/LACTIC ACIDon 2021 Lactate [Moles/Vol] 1.3 mmol/L Normal 0.4-1.[address] [facility] Comment on above: Performed By: #### L ACT ####[facility] Cizqlahszy[address] [place] [address]Dr. Tadeo Smyth LIPASEon 08-08-2022 Lipase [Catalytic activity/Vol] 120.0 U/L Normal 73.0-393.0 [facility] Comment on above: Performed By: #### C MP, VIJI, LIPA, CMADM ####[facility] Jztpkzmwcq[address] [place] [address]Dr. Tadeo Smyth PROF 14(COMP METB)on 022 Albumin [Mass/Vol] 3.8 g/dL Normal 3.4-5.0 [facility] Comment on above: Performed By: #### C MP, VIJI, LIPA, CMADM ####[facility] Cikmghmand78[address] [place] [address]Dr. Tadeo Smyth Albumin/Globulin [Mass ratio] 1.1 {ratio} Normal [facility] Comment on above: Performed By: #### C MP, VIJI, LIPA, CMADM ####[facility] Mzylpcvrhq[address] [place] [address]Dr. Tadeo Smyth ALP [Catalytic activity/Vol] 145 U/L Critically high 46-116 [facility] Comment on above: Performed By: #### C MP, VIJI, LIPA, CMADM ####[facility] Feefimqxno[address] [place] [address]Dr. Tadeo Smyth ALT [Catalytic activity/Vol] 30 U/L Normal 14-59 [facility] Comment on above: Performed By: #### C MP, VIJI, LIPA, CMADM ####[facility] Epxzkmdgmb[address] [place] [address]Dr. Tadeo Smyth Anion gap [Moles/Vol] 11.5 mmol/L Normal Th [facility] Comment on above: Performed By: #### C MP, VIJI, LIPA, CMADM ####[facility] Hjyqxrjtem15[address] [place] [address]Dr. Tadeo Smyth AST [Catalytic activity/Vol] 17 U/L Normal 15-37 [facility] Comment on above: Performed By: #### C MP, VIJI, LIPA, CMADM ####[facility] Lgphqpapud4248 [place] [address]Dr. Tadeo Smyth Bilirubin [Mass/Vol] 0.1 mg/dL Critically low 0.2-1.0 [facility] Comment on above: Performed By: #### C MP, VIJI, LIPA, CMADM ####[facility] Zhcqtuallh9288 [place] [address]Dr. Tadeo Smyth Calcium [Mass/Vol] 8.9 mg/dL Normal 8.5-10.1 [facility] Comment on above: Performed By: #### C MP, VIJI, LIPA, CMADM ####[facility] Cpxlfodvhv6097 [place] [address]Dr. Tadeo Smyth Chloride [Moles/Vol] 104 mmol/L Normal 98-107 [facility] Comment on above: Performed By: #### C MP, VIJI, LIPA, CMADM ####[facility] Yjvsgehnwu3052 [place] [address]Dr. Tadeo Smyth CO2 [Moles/Vol] 27.2 mmol/L Normal 21.0-32.0 [facility] Comment on above: Performed By: #### C MP, VIJI, LIPA, CMADM ####[facility] Kxkgexydhm[address] [place], [place] [address]Dr. Tadeo Smyth Creatinine [Mass/Vol] 0.90 mg/dL Normal 0.55-1.02 [facility] Comment on above: Performed By: #### C MP, VIJI, LIPA, CMADM ####[facility] Yfikspurvw1078 [place] [address]Dr. Tadeo Smyth EGFR-AF PORTUGUESE >60 Normal >=60 [facility] Comment on above: Performed By: #### C MP, VIJI, LIPA, CMADM ####[facility] Evluzagksg7162 [place] [address]Dr. Tadeo Smyth EGFR-NON AF PORTUGUESE >60 Normal >=60 [facility] Comment on above: Performed By: #### C MP, VIJI, LIPA, CMADM ####[facility] Jhmgpoqnnb7806 [place] [address]Dr. Tadeo Smyth Globulin (S) [Mass/Vol] 3.5 g/dL Normal [facility] Comment on above: Performed By: #### C MP, VIJI, LIPA, CMADM ####[facility] Akmjcdohqs4813 [place] [address]Dr. Tadeo Smyth Glucose [Mass/Vol] 98 mg/dL Normal 74-106 [facility] Comment on above: Performed By: #### C MP, VIJI, LIPA, CMADM ####[facility] Cnmgmyhwbn9785 [place] [address]Dr. Tadeo Smyth Potassium [Moles/Vol] 3.7 mmol/L Normal 3.5-5.1 [facility] Comment on above: Performed By: #### C MP, VIJI, LIPA, CMADM ####[facility] Yimhflziej55[address] [place] [address]Dr. Tadeo Smyth Protein [Mass/Vol] 7.3 g/dL Normal 6.4-8.2 [facility] Comment on above: Performed By: #### C MP, VIJI, LIPA, CMADM ####[facility] Giadepjgss9332 [place] [address]Dr. Tadeo Smyth Sodium [Moles/Vol] 139 mmol/L Normal 136-145 [facility] Comment on above: Performed By: #### C MP, VIJI, LIPA, CMADM ####[facility] Spdonhwqdo0389 [place] [address]Dr. Tadeo Smyth Urea nitrogen [Mass/Vol] 25.0 mg/dL Critically high 7.0-18.0 [facility] Comment on above: Performed By: #### C MP, VIJI, LIPA, CMADM ####[facility] Scdnpbhpvn6173 [place] [address]Dr. Tadeo Smyth Urea nitrogen/Creatinine [Mass ratio] 27.8 mg/mg Normal [facility] Comment on above: Performed By: #### C MP, VIJI, LIPA, CMADM ####[facility] Pumvbbiqmt2757 [place] [address]Dr. Tadeo Smyth URINE MICROSCOPIC ONLYon BACTERIA NONE SEEN Normal NONE SEEN [facility] Comment on above: Performed By: #### SANDRO MERCHANTRO ####[facility] Ffwfbwrliq[address] [place], [place] [address]Dr. Tadeo Smyth Bacteria identified Cx Nom (U) NOT INDICATED Normal [facility] Comment on above: Performed By: #### KAROL MERCHANT ####[facility] Zskjnaefvg[address] [place], [place] [address]Dr. Tadeo Smyth CAST NONE SEEN Normal NONE SEEN [facility] Comment on above: Performed By: #### SANDRO MERCHANTRO ####[facility] Uyetdbguwy98[address] [place], [place] [address]Dr. Tadeo Smyth Crystals LM Nom (Urine sed) NONE SEEN Normal NONE SEEN [facility] Comment on above: Performed By: #### SANDRO MERCHANTRO ####[facility] Rtuzsqzzxl22[address] [place], [place] [address]Dr. Tadeo Smyth Epithelial cells LM Ql (Urine sed) FEW Abnormal NONE SEEN /RARE [facility] Comment on above: Performed By: #### SANDRO MERCHANTRO ####[facility] Rigyeuyhcm[address] [place], [place] [address]Dr. Tadeo Smyth MUCOUS NONE SEEN Normal NONE SEEN [facility] Comment on above: Performed By: #### SANDRO MERCHANTRO ####[facility] [address] [place], [place] [address]Dr. Tadeo Haja RBC 2-5 Abnormal 0-2 [facility] Comment on above: Performed By: #### SANDRO MERCHANTRO ####[facility] Knhtcgerhj67[address] [place], [place] [address]Dr. Tadeo Smyth WBC NONE SEEN Normal NONE SEEN [facility] Comment on above: Performed By: #### SANDRO MERCHANTRO ####[facility] Xnrjnugwoz7[address] [place], [place] [address]Dr. Tadeo Haja AMYLASEon 07-21-2022 Amylase [Catalytic activity/Vol] 49 U/L Normal 25-115 [facility] Comment on above: Performed By: #### L IPA, VIJI, CMP ####[facility] Vddvhbldfn8[address] [place], [place] [address]Dr. Tadeo Smyth CBC AUTO DIFFon 07-21-2022 BASO # 0.0 103/ul Normal 0.0-0.1 [facility] Comment on above: Performed By: #### C BC ####[facility] Qzmtgdqisc77[address] [place], [place] [address]Dr. Tadeo Haja Basophils/100 WBC (Bld) 0.6 % Normal 0.2-2.0 [facility] Comment on above: Performed By: #### C BC ####[facility] Plczvgactb[address] [place], [place] [address]Dr. Tadeo Smyth EO # 0.2 103/ul Normal 0.0-0.7 [facility] Comment on above: Performed By: #### C BC ####[facility] Fjtieaxoke[address] [place], [place] [address]Dr. Tadeo Haja Eosinophils/100 WBC (Bld) 3.1 % Normal 0.9-7.0 [facility] Comment on above: Performed By: #### C BC ####[facility] Jhyhukwvcy152[address] [place], [place] [address]Dr. Tadeo Haja Erythrocyte distribution width (RBC) [Ratio] 13.2 % Normal 11.0-15.0 [facility] Comment on above: Performed By: #### C BC ####[facility] Dcrhukginc5197 [place] [address]Dr. Tadeo Smyth Hematocrit (Bld) [Volume fraction] 35.7 % Critically low 36.0-48.0 [facility] Comment on above: Performed By: #### C BC ####[facility] Vnalscotyk[address] [place], [place] [address]DrNeo Smyth Hemoglobin (Bld) [Mass/Vol] 11.6 g/dL Critically low 12.0-16.0 [facility] Comment on above: Performed By: #### C BC ####[facility] Vlptmtoxiv[address] [place], [place] [address]Dr. Tadeo Smyth IG # 0.01 10e3/ul Normal 0.00-0.03 [facility] Comment on above: Performed By: #### C BC ####[facility] Klviijlexl[address] [place], [place] [address]Dr. Tadeo Smyth IG % 0.2 % Normal 0.0-0.5 [facility] Comment on above: Performed By: #### C BC ####[facility] Ecfaodybjb99[address] [place], [place] [address]DrNeo Smyth LYMPH # 1.9 103/ul Normal 1.2-3.8 [facility] Comment on above: Performed By: #### C BC ####[facility] Qtccbsstik29[address] [place], [place] [address]DrNeo Smyth Lymphocytes/100 WBC (Bld) 34.8 % Normal 20.5-60.0 [facility] Comment on above: Performed By: #### C BC ####[facility] Qosoftkzbn508[address] [place], [place] [address]DrNeo Smyth MANUAL DIFF REQ NO Normal [facility] Comment on above: Performed By: #### C BC ####[facility] Pkinzatofs[address] [place], [place] [address]DrNeo Smyth MCH (RBC) [Entitic mass] 29.1 pg Normal 26.7-34.0 [facility] Comment on above: Performed By: #### C BC ####[facility] Bnfdxosryb2205 [place] [address]DrNeo Smyth MCHC (RBC) [Mass/Vol] 32.5 g/dL Normal 29.9-35.2 [facility] Comment on above: Performed By: #### C BC ####[facility] Jzjcggrfpg[address] [place], [place] [address]DrNeo Smyth MCV (RBC) [Entitic vol] 89.7 fL Normal 81.0-99.0 [facility] Comment on above: Performed By: #### C BC ####[facility] Yebkuidjpn[address] [place], [place] [address]DrNeo Smyth MONO # 0.3 103/ul Normal 0.3-0.8 [facility] Comment on above: Performed By: #### C BC ####[facility] Hqznehicbv97[address] [place], [place] [address]DrNeo Smyth Monocytes/100 WBC (Bld) 6.1 % Normal 1.7-12.0 [facility] Comment on above: Performed By: #### C BC ####[facility] Idbjqoecrw0[address] [place], [place] [address]DrNeo Smyth NEUT # 3.0 103/ul Normal 1.4-6.5 [facility] Comment on above: Performed By: #### C BC ####[facility] Wgqiwgnrti[address] [place], [place] [address]DrNeo Smyth Neutrophils/100 WBC (Bld) 55.2 % Normal 43.0-75.0 [facility] Comment on above: Performed By: #### C BC ####[facility] Gxpjwnupie44[address] [place], [place] [address]DrNeo Smyth Platelet mean volume (Bld) [Entitic vol] 9.0 fL Critically low 9.5-13.5 [facility] Comment on above: Performed By: #### C BC ####[facility] Yiheabdpnw7[address] [place], [place] [address]DrNeo Smyth PLT 358 103/ul Normal 150-450 [facility] Comment on above: Performed By: #### C BC ####[facility] Gmemydcarc0332 [place] [address]Dr. Tadeo Smyth RBC 3.98 106/ul Critically low 4.20-5.40 [facility] Comment on above: Performed By: #### C BC ####[facility] Xgdxclmdzi4119 [place] [address]Dr. Tadeo Smyth WBC 5.4 103/ul Normal 4.0-11.0 [facility] Comment on above: Performed By: #### C BC ####[facility] Vdbzsrcesx5737 [place] [address]Dr. Tadeo Smyth LIPASEon 07-21-2022 Lipase [Catalytic activity/Vol] 54.0 U/L Critically low 73.0-393.0 [facility] Comment on above: Performed By: #### L VIJI HALL, CMP ####[facility] Jjzqzreqnm[address] [place], [place] [address]Dr. Tadeo Smyth PROF 14(COMP METB)on 022 Albumin [Mass/Vol] 3.5 g/dL Normal 3.4-5.0 [facility] Comment on above: Performed By: #### L VIJI HALL, CMP ####[facility] Fkhizsktqk3347 [place] [address]Dr. Tadeo Haja Albumin/Globulin [Mass ratio] 0.9 {ratio} Normal [facility] Comment on above: Performed By: #### L VIJI HALL, CMP ####[facility] Wocvdgmyeq9602 [place] [address]Dr. Tadeo Smyth ALP [Catalytic activity/Vol] 127 U/L Critically high 46-116 [facility] Comment on above: Performed By: #### L VIJI HALL, CMP ####[facility] Etkpjsdreu1399 [place] [address]Dr. Tadeo Smyth ALT [Catalytic activity/Vol] 16 U/L Normal 14-59 [facility] Comment on above: Performed By: #### L VIJI HALL, CMP ####[facility] Dykqidcvup4233 [place] [phone]. Tadeo Smyth Anion gap [Moles/Vol] 10.6 mmol/L Normal [facility] Comment on above: Performed By: #### L IPA VIJI, CMP ####[facility] Owzdzzjduy7241 [place] [address]Dr. Tadeo Smyth AST [Catalytic activity/Vol] 16 U/L Normal 15-37 [facility] Comment on above: Performed By: #### L IPA VIJI, CMP ####[facility] Logocpeedl1556 [place] [address]Dr. Tadeo Smyth Bilirubin [Mass/Vol] 0.3 mg/dL Normal 0.2-1.0 [facility] Comment on above: Performed By: #### L ISABEL VIJI, CMP ####[facility] Xycglfzsud5022 [place] [address]Dr. Tadeo Smyth Calcium [Mass/Vol] 9.1 mg/dL Normal 8.5-10.1 [facility] Comment on above: Performed By: #### L VIJI HALL, CMP ####[facility] Njplredoat0417 [place] [address]Dr. Tadeo Smyth Chloride [Moles/Vol] 104 mmol/L Normal 98-107 [facility] Comment on above: Performed By: #### L VIJI HALL, CMP ####[facility] Lymhgwxvix5714 [place] [address]Dr. Tadeo Smyth CO2 [Moles/Vol] 28.0 mmol/L Normal 21.0-32.0 [facility] Comment on above: Performed By: #### L ISABEL VIJI, CMP ####[facility] Fbrldizhmk3887 [place] [address]Dr. Tadeo Smyth Creatinine [Mass/Vol] 0.96 mg/dL Normal 0.55-1.02 [facility] Comment on above: Performed By: #### L IPA VIJI, CMP ####[facility] Xegdzrjaaa9741 [place] [address]Dr. Tadeo Smyth EGFR-AF PORTUGUESE >60 Normal >=60 [facility] Comment on above: Performed By: #### L IPA VIJI, CMP ####[facility] Emkznxzroh4777 [place] [address]Dr. Margotnicole Smyth EGFR-NON AF PORTUGUESE >60 Normal >=60 [facility] Comment on above: Performed By: #### L IPA VIJI, CMP ####[facility] Ysvmywuuld2651 [place] [address]Dr. Tadeo Smyth Globulin (S) [Mass/Vol] 3.8 g/dL Normal [facility] Comment on above: Performed By: #### L IPA VIJI, CMP ####[facility] Oiotbrnybz1294 [place] [address]Dr. Tadeo Smyth Glucose [Mass/Vol] 93 mg/dL Normal 74-106 [facility] Comment on above: Performed By: #### L ISABEL VIJI, CMP ####[facility] Sahofxfcbi70[address] [place], [place] [address]Dr. Tadeo Smyth Potassium [Moles/Vol] 3.6 mmol/L Normal 3.5-5.1 [facility] Comment on above: Performed By: #### L VIJI HALL, CMP ####[facility] Zhlabvjqwz6[address] [place], [place] [address]Dr. Tadeo Smyth Protein [Mass/Vol] 7.3 g/dL Normal 6.4-8.2 [facility] Comment on above: Performed By: #### L ISABEL VIJI, CMP ####[facility] Wsulecyqze6425 [place] [address]Dr. Margotnicole Smyth Sodium [Moles/Vol] 139 mmol/L Normal 136-145 [facility] Comment on above: Performed By: #### L ISABEL VIJI, CMP ####[facility] Qloisxjocq[address] [place], [place] [address]Dr. Tadeo Smyth Urea nitrogen [Mass/Vol] 16.0 mg/dL Normal 7.0-18.0 [facility] Comment on above: Performed By: #### L IPA VIJI, CMP ####[facility] Zleqbcykjn[address] [place], [place] [address]Dr. Tadeo Smyth Urea nitrogen/Creatinine [Mass ratio] 16.7 mg/mg Normal [facility] Comment on above: Performed By: #### L ISABEL, VIJI, CMP ####[facility] Orjivosely4193 [place] [address]Dr. Tadeo Smyth XR ABD FLAT UP_PA Kasey 07-21 XR ABD FLAT UP_PA CH Normal [facility] CULTURE URINEon 07-10-2022 CULTURE URINE Normal [facility] Comment on above: Performed By: #### U RCX ####[facility] Inosnbnfnm2562 [place] [address]Dr. Tadeo Haja INSULINon 07-09-2022 Insulin 15.9 uIU/mL Normal 2.6-24.9 [facility] Comment on above: Performed By: #### I NSULIN ####[facility] Viniqspbow[address] [place], [place] [address]Dr. Tadeo Haja CBC AUTO DIFFon 07-08-2022 BASO # 0.0 103/ul Normal 0.0-0.1 [facility] Comment on above: Performed By: #### C BC ####[facility] Fevnroktxs9932 [place] [address]Dr. Tadeo Haja Basophils/100 WBC (Bld) 0.6 % Normal 0.2-2.0 [facility] Comment on above: Performed By: #### C BC ####[facility] Nhkjfbfkmp5575 [place] [address]Dr. Tadeo Haja EO # 0.2 103/ul Normal 0.0-0.7 [facility] Comment on above: Performed By: #### C BC ####[facility] Hjoqfuoxor[address] [place], [place] [address]Dr. Margotnicole Smyth Eosinophils/100 WBC (Bld) 3.4 % Normal 0.9-7.0 [facility] Comment on above: Performed By: #### C BC ####[facility] Uvogdflkcf8[address] [place], [place] [address]Dr. Tadeo Haja Erythrocyte distribution width (RBC) [Ratio] 13.1 % Normal 11.0-15.0 [facility] Comment on above: Performed By: #### C BC ####[facility] Jfuktosckp5773 [place] [address]Dr. Tadeo Smyth Hematocrit (Bld) [Volume fraction] 42.4 % Normal 36.0-48.0 [facility] Comment on above: Performed By: #### C BC ####[facility] Hwnectwsie0252 [place] [address]Dr. Margotnicole Smyth Hemoglobin (Bld) [Mass/Vol] 13.7 g/dL Normal 12.0-16.0 [facility] Comment on above: Performed By: #### C BC ####[facility] Setpgegsnb18[address] [place], [place] [address]Dr. Tadeo Smyth IG # 0.01 10e3/ul Normal 0.00-0.03 [facility] Comment on above: Performed By: #### C BC ####[facility] Soynkkwtnw[address] [place], [place] [address]Dr. Tadeo Smyth IG % 0.2 % Normal 0.0-0.5 [facility] Comment on above: Performed By: #### C BC ####[facility] Dvsbjgkkxu39[address] [place], [place] [address]Dr. Tadeo Smyth LYMPH # 2.1 103/ul Normal 1.2-3.8 [facility] Comment on above: Performed By: #### C BC ####[facility] Lkzxdecvby[address] [place], [place] [address]Dr. Tadeo Smyth Lymphocytes/100 WBC (Bld) 41.2 % Normal 20.5-60.0 [facility] Comment on above: Performed By: #### C BC ####[facility] Arxtxtxmqm[address] [place], [place] [address]Dr. Tadeo Smyth MANUAL DIFF REQ NO Normal [facility] Comment on above: Performed By: #### C BC ####[facility] Aafsncewyq1825 [place] [address]Dr. Tadeo Smyth MCH (RBC) [Entitic mass] 28.8 pg Normal 26.7-34.0 [facility] Comment on above: Performed By: #### C BC ####[facility] Yjdnsmjgmy4685 [place] [phone]. Tadeo Smyth MCHC (RBC) [Mass/Vol] 32.3 g/dL Normal 29.9-35.2 [facility] Comment on above: Performed By: #### C BC ####[facility] Txwjirczpk7672 [place] [phone]. Margotnicole Smyth MCV (RBC) [Entitic vol] 89.3 fL Normal 81.0-99.0 [facility] Comment on above: Performed By: #### C BC ####[facility] Vjvhagvemc[address] [place], [place] [address]Dr. Tadeo Smyth MONO # 0.4 103/ul Normal 0.3-0.8 [facility] Comment on above: Performed By: #### C BC ####[facility] Ruihnimkkf[address] [place], [place] [address]Dr. Tadeo Smyth Monocytes/100 WBC (Bld) 8.1 % Normal 1.7-12.0 [facility] Comment on above: Performed By: #### C BC ####[facility] Frbyohdplg[address] [place], [place] [address]Dr. Tadeo Smyth NEUT # 2.4 103/ul Normal 1.4-6.5 [facility] Comment on above: Performed By: #### C BC ####[facility] Viytozwmnz[address] [place], [place] [address]Dr. Tadeo Smyth Neutrophils/100 WBC (Bld) 46.5 % Normal 43.0-75.0 [facility] Comment on above: Performed By: #### C BC ####[facility] Itwrvwifzw[address] [place], [place] [address]DrNeo Smyth Platelet mean volume (Bld) [Entitic vol] 9.3 fL Critically low 9.5-13.5 [facility] Comment on above: Performed By: #### C BC ####[facility] Txaueoxnye[address] [place], [place] [address]Dr. Tadeo Smyth PLT 443 103/ul Normal 150-450 [facility] Comment on above: Performed By: #### C BC ####[facility] Ysqgsylrst6141 [place] [phone]. Tadeo Smyth RBC 4.75 106/ul Normal 4.20-5.40 [facility] Comment on above: Performed By: #### C BC ####[facility] Mbdfjcsfgo2366 [place] [phone]. Tadeo Smyth WBC 5.1 103/ul Normal 4.0-11.0 [facility] Comment on above: Performed By: #### C BC ####[facility] Ravnalsjzs0777 [place] [phone]. Tadeo Smyth FREE THYROXINE INDEX T7on FTI 2.91 Normal 1.30-4.50 [facility] Comment on above: Performed By: #### T 7, LIPID, TSH, CMP ####[facility] Viatxktrjf2740 [place] [address]Dr. Tadeo Smyth T3U 31.0 % Normal 30.0-39.0 [facility] Comment on above: Performed By: #### T 7, LIPID, TSH, CMP ####[facility] Embmtfxyba4220 [place] [address]Dr. Tadeo Smyth T4 [Mass/Vol] 9.40 ug/dL Normal 4.80-13.90 [facility] Comment on above: Performed By: #### T 7, LIPID, TSH, CMP ####[facility] Rztxctibhd8845 [place] [address]Dr. Tadeo Smyth GLYCOHEMOGLOBIN A1Con 2021 ADA RECOMMENDATION SEE BELOW Normal [facility] Comment on above: Result Comment: ADA RECOMMENDED LIMIT 4.0 - 6.0 ADA THERAPEUTIC TARGET < 7.0 ACTION SUGGESTED > 7.0 Performed By: #### A 1C ####[facility] Lvqcslgdce2644 [place] [address]Dr. Tadeo Smyth Glucose [Mass/Vol] 120 mg/dL Normal [facility] Comment on above: Performed By: #### A 1C ####[facility] Mwdvprmdsz0886 [place] [phone]. Tadeo Smyth HbA1c (Bld) [Mass fraction] 5.8 % Normal 4.5-6.2 [facility] Comment on above: Performed By: #### A 1C ####[facility] Yygfhmmnwo[address] [place] [phone]. Tadeo Smyth IRONon 07-08-2022 Iron [Mass/Vol] 59.0 ug/dL Normal 50.0-170.0 [facility] Comment on above: Performed By: #### I KEEGAN ####[facility] [facility] [address] [place] [phone]. Tadeo Smyth LIPID PROFILEon 07-08-2022 CHOL-HDL RATIO NORM SEE BELOW Normal [facility] Comment on above: Result Comment: 3.3 - 4.4 LOW RISK 4.4 - 7.1 AVERAGE RISK 7.1 - 11.0 MODERATE RISK >11.0 HIGH RISK Performed By: #### T 7, LIPID, TSH, CMP ####[facility] Qrqnuohohp[address] [place] [address]Dr. Tadeo Smyth Cholesterol [Mass/Vol] 227 mg/dL Critically high <=200 [facility] Comment on above: Performed By: #### T 7, LIPID, TSH, CMP ####[facility] Nybfbnsfbt[address] [place] [address]Dr. Tadeo Smyth Cholesterol in HDL [Mass/Vol] 67 mg/dL Critically high 40-60 [facility] Comment on above: Performed By: #### T 7, LIPID, TSH, CMP ####[facility] Nftiieoyhm[address] [place] [phone]. Tadeo Smyth Cholesterol in LDL [Mass/Vol] 139.0 mg/dL Normal [facility] Comment on above: Performed By: #### T 7, LIPID, TSH, CMP ####[facility] Luwznpgsfy14[address] [place] [phone]. Tadeo Smyth Cholesterol.total/Cho lesterol in HDL [Mass ratio] 3.4 {ratio} Normal [facility] Comment on above: Performed By: #### T 7, LIPID, TSH, CMP ####[facility] Nfut[address]kj[address] [place] [address]Dr. Tadeo Smyth HDL NORMAL > or = 60 mg/dl - LO W CARDIOVASCULAR RISK <40 mg/dl - HIGH CARDIOVASCULAR RISK Normal [facility] Comment on above: Performed By: #### T 7, LIPID, TSH, CMP ####[facility] Kafqqbvaxz[address] [place] [address]Dr. Tadeo Smyth LDL CALC NORMAL SEE BELOW Normal [facility] Comment on above: Result Comment: <100 mg/dl OPTIMAL 100 - 129 mg/dl NEAR OR ABOVE OPTIMAL 130 - 159 mg/dl BORDERLINE HIGH 160 - 189 mg/dl HIGH >190 mg/dl VERY HIGH Performed By: #### T 7, LIPID, TSH, CMP ####[facility] Pxdpucudlv3[address] [place] [address]Dr. Tadeo Smyth Triglyceride [Mass/Vol] 105 mg/dL Normal <=150 [facility] Comment on above: Performed By: #### T 7, LIPID, TSH, CMP ####[facility] Xkiahdiprh[address] [place] [address]Dr. Tadeo Smyth VLDL CALC 21.0 mg/dL Normal [facility] Comment on above: Performed By: #### T 7, LIPID, TSH, CMP ####[facility] Wduwswfqsn[address] [place] [address]Dr. Tadeo Smyth OCC BLD IMMUNO SCREENon OCCULT BLOOD Negative Normal NEGATIVE [facility] Comment on above: Performed By: #### O BSCRN ####[facility] Vcgsyfiziv[address] [place] [address]Dr. Tadeo Smyth PROF 14(COMP METB)on 022 Albumin [Mass/Vol] 3.7 g/dL Normal 3.4-5.0 [facility] Comment on above: Performed By: #### T 7, LIPID, TSH, CMP ####[facility] Zrqhawztco7[address] [place] [address]Dr. Tadeo Smyth Albumin/Globulin [Mass ratio] 0.8 {ratio} Normal [facility] Comment on above: Performed By: #### T 7, LIPID, TSH, CMP ####[facility] Jknwvqwzho[address] [place] [address]Dr. Tadeo Smyth ALP [Catalytic activity/Vol] 141 U/L Critically high 46-116 [facility] Comment on above: Performed By: #### T 7, LIPID, TSH, CMP ####[facility] Mfcspgihas23[address] [place] [address]Dr. Tadeo Smyth ALT [Catalytic activity/Vol] 23 U/L Normal 14-59 [facility] Comment on above: Performed By: #### T 7, LIPID, TSH, CMP ####[facility] Ubspheufxz78[address] [place] [address]Dr. Tadeo Smyth Anion gap [Moles/Vol] 9.8 mmol/L Normal [facility] Comment on above: Performed By: #### T 7, LIPID, TSH, CMP ####[facility] Gtwyzjtwdt[address] [place], [place] [address]Dr. Tadeo Smyth AST [Catalytic activity/Vol] 13 U/L Critically low 15-37 [facility] Comment on above: Performed By: #### T 7, LIPID, TSH, CMP ####[facility] Ujvhdhipbx[address] [place], [place] [address]Dr. Tadeo Smyth Bilirubin [Mass/Vol] 0.4 mg/dL Normal 0.2-1.0 [facility] Comment on above: Performed By: #### T 7, LIPID, TSH, CMP ####[facility] Lezmwbatbr3[address] [place] [address]Dr. Tadeo Smyth Calcium [Mass/Vol] 10.2 mg/dL Critically high 8.5-10.1 [facility] Comment on above: Performed By: #### T 7, LIPID, TSH, CMP ####[facility] Ftmppokprt64[address] [place], [place] [address]Dr. Tadeo Smyth Chloride [Moles/Vol] 101 mmol/L Normal 98-107 [facility] Comment on above: Performed By: #### T 7, LIPID, TSH, CMP ####[facility] Tsqppceumj[address] [place], [place] [address]Dr. Tadeo Smyth CO2 [Moles/Vol] 32.8 mmol/L Critically high 21.0-32.0 [facility] Comment on above: Performed By: #### T 7, LIPID, TSH, CMP ####[facility] Cxoxsylfqt9427 [place] [address]Dr. Tadeo Smyth Creatinine [Mass/Vol] 0.92 mg/dL Normal 0.55-1.02 [facility] Comment on above: Performed By: #### T 7, LIPID, TSH, CMP ####[facility] Dzaunktgru[address] [place] [address]Dr. Tadeo Smyth EGFR-AF PORTUGUESE >60 Normal >=60 [facility] Comment on above: Performed By: #### T 7, LIPID, TSH, CMP ####[facility] Xlewfpvqmy7444 [place] [address]Dr. Tadeo Smyth EGFR-NON AF PORTUGUESE >60 Normal >=60 [facility] Comment on above: Performed By: #### T 7, LIPID, TSH, CMP ####[facility] Ctkhbbleim5995 [place] [address]Dr. Margotnicole Smyth Globulin (S) [Mass/Vol] 4.8 g/dL Normal [facility] Comment on above: Performed By: #### T 7, LIPID, TSH, CMP ####[facility] Xlxikymshc82[address] [place] [phone]. Tadeo Smyth Glucose [Mass/Vol] 114 mg/dL Critically high 74-106 [facility] Comment on above: Performed By: #### T 7, LIPID, TSH, CMP ####[facility] Yivubixojg5[address] [place] [phone]. Tadeo Smyth Potassium [Moles/Vol] 3.6 mmol/L Normal 3.5-5.1 [facility] Comment on above: Performed By: #### T 7, LIPID, TSH, CMP ####[facility] Dnvbdnrmol35[address] [place] [phone]. Tadeo Smyth Protein [Mass/Vol] 8.5 g/dL Critically high 6.4-8.2 [facility] Comment on above: Performed By: #### T 7, LIPID, TSH, CMP ####[facility] Xnchfhlszk7466 [place] [address]Dr. Tadeo Smyth Sodium [Moles/Vol] 140 mmol/L Normal 136-145 [facility] Comment on above: Performed By: #### T 7, LIPID, TSH, CMP ####[facility] Mexdnjzrjr[address] [place], [place] [address]Dr. Tadeo Smyth Urea nitrogen [Mass/Vol] 23.0 mg/dL Critically high 7.0-18.0 [facility] Comment on above: Performed By: #### T 7, LIPID, TSH, CMP ####[facility] Pkfxshfata[address] [place], [place] [address]Dr. Tadeo Smyth Urea nitrogen/Creatinine [Mass ratio] 25.0 mg/mg Normal [facility] Comment on above: Performed By: #### T 7, LIPID, TSH, CMP ####[facility] Bpdzanmybw[address] [place], [place] [address]Dr. Tadeo Smyth TSHon 07-08-2022 TSH 3.748 uIU/mL Critically high 0.358-3.740 [facility] Comment on above: Performed By: #### T 7, LIPID, TSH, CMP ####[facility] Cmrieemhft4[address] [place], [place] [address]Dr. Tadeo Smyth UA RANDOM W/MICROSCOPICon BACTERIA TRACE Abnormal NONE SEEN [facility] Comment on above: Performed By: #### U AMIC ####[facility] Yesnrxesop[address] [place], [place] [address]Dr. Tadeo Smyth Bilirubin Ql (U) Negative Normal NEGATIVE [facility] Comment on above: Performed By: #### U AMIC ####[facility] Wdbumqbmhk[address] [place], [place] [address]Dr. Tadeo Smyth CAST NONE SEEN Normal NONE SEEN [facility] Comment on above: Performed By: #### U AMIC ####[facility] Ycehxcpqmf7[address] [place], [place] [address]Dr. Tadeo Smyth Clarity (U) CLEAR Normal CLEAR [facility] Comment on above: Performed By: #### U AMIC ####[facility] Rodpgwemwx4[address] [place] [address]Dr. Tadeo Smyth Color (U) YELLOW Normal YELLOW [facility] Comment on above: Performed By: #### U AMIC ####[facility] Cjytzpkdyl28[address] [place] [phone]. Tadeo Smyth Crystals LM Nom (Urine sed) NONE SEEN Normal NONE SEEN [facility] Comment on above: Performed By: #### U AMIC ####[facility] Vqyjstpkjc3179 [place] [address]Dr. Tadeo Smyth Epithelial cells LM Ql (Urine sed) FEW Abnormal NONE SEEN /RARE [facility] Comment on above: Performed By: #### U AMIC ####[facility] Lgmtjbbbtz2725 [place] [address]Dr. Tadeo Smyth Glucose Ql (U) Negative Normal NEGATIVE [facility] Comment on above: Performed By: #### U AMIC ####[facility] Reoidhzthx0763 [place] [address]Dr. Tadeo Smyth Hemoglobin Ql (U) SMALL Abnormal NEGATIVE [facility] Comment on above: Performed By: #### U AMIC ####[facility] Vhyfnnztxo3009 [place] [address]Dr. Tadeo Smyth Ketones Ql (U) TRACE Abnormal NEGATIVE [facility] Comment on above: Performed By: #### U AMIC ####[facility] Pcrtzygydc6624 [place] [address]Dr. Tadeo Smyth LEUKOCYTES TRACE Abnormal NEGATIVE [facility] Comment on above: Performed By: #### U AMIC ####[facility] Hugsxuycta7096 [place] [address]Dr. Tadeo Smyth MUCOUS NONE SEEN Normal NONE SEEN [facility] Comment on above: Performed By: #### U AMIC ####[facility] Xsidtiupgf1862 [place] [address]Dr. Tadeo Smyth Nitrite Ql (U) Negative Normal NEGATIVE [facility] Comment on above: Performed By: #### U AMIC ####[facility] Achbrtkoag8146 [place] [phone]. Tadeo Smyth pH (U) 6.5 [pH] Normal 5-9 [facility] Comment on above: Performed By: #### U AMIC ####[facility] Cytopbflxg7324 [place] [address]Dr. Tadeo Smyth RBC 5-10 Abnormal 0-2 [facility] Comment on above: Performed By: #### U AMIC ####[facility] Infdqgzrwu0721 [place] [address]Dr. Tadeo Smyth SPEC GRAVITY 1.020 Normal 1.005-<=1.0 25 [facility] Comment on above: Performed By: #### U AMIC ####[facility] Lxklvysqro1480 [place] [address]Dr. Tadeo Smyth UA PROTEIN 30 mg/dl Abnormal NEGATIVE/ TRACE [facility] Comment on above: Performed By: #### U AMIC ####[facility] Phjrssyycz2210 [place] [address]Dr. Tadeo Smyth Urobilinogen Qn (U) 0.2 {Benito'U}/dL Normal 0.2 - 1. 0 [facility] Comment on above: Performed By: #### U AMIC ####[facility] Qvosfifjfv8590 [place] [address]Dr. Tadeo Smyth WBC 2-5 Abnormal NONE SEEN [facility] Comment on above: Performed By: #### U AMIC ####[facility] Zqmxjmusvu9827 [place] [address]Dr. Tadeo Smyth [facility]07 SARS-CoV-2 (COVID-19) RNA CHEN+probe Ql (Unsp spec) Not detected Normal NOT DETECTED [facility] Comment on above: Result Comment: When [...] for this test is supported by the [place] of [employer] and Human Service's declaration that [...] be used). Performed By: #### C VDTBH ####[facility] Kmhkmrkkic[address] [place], [place] [address]Dr. Tadeo Smyth CULTURE URINEon 06-09-2022 CULTURE URINE Normal [facility] Comment on above: Performed By: #### U RCX ####[facility] Bwceznenji85[address] [place], [place] [address]Dr. Tadeo Smyth GI PANEL (PCR)on 06-07-2022 Adenovirus F 40/41 Not detected Normal NOT DETECTED [facility] Comment on above: Performed By: #### G IPANEL ####[facility] Aqvaobiema[address] [place], [place] [address]Dr. Tadeo Smyth Astrovirus Not detected Normal NOT DETECTED [facility] Comment on above: Performed By: #### G IPANEL ####[facility] Zfqncupbxz4[address] [place], [place] [address]Dr. Tadeo Smyth C. Diff toxin A/B Not detected Normal NOT DETECTED [facility] Comment on above: Performed By: #### G IPANEL ####[facility] Habatwayhf[address] [place], [place] [address]Dr. Tadeo Smyth Campylobacter Not detected Normal NOT DETECTED [facility] Comment on above: Performed By: #### G IPANEL ####[facility] Dzdsodqbur7[address] [place], [place] [address]Dr. Tadeo Smyth Cryptosporidium Not detected Normal NOT DETECTED [facility] Comment on above: Performed By: #### G IPANEL ####[facility] Spkafrpzhn0535[address] [place], [place] [address]Dr. Yilan Smyth Cyclos. Cayetanensis Not detected Normal NOT DETECTED [facility] Comment on above: Performed By: #### G IPANEL ####[facility] Fjbxrpoakb16[address] [place], [place] [address]Dr. nicole [facility] E. Coli O157 Not Applicable Normal Not Applicable [facility] Comment on above: Performed By: #### G IPANEL ####[facility] Mbyngadqtf27[address] [place], [place] [address]Dr. Tadeo Smyth E. histolytica Not detected Normal NOT DETECTED [facility] Comment on above: Performed By: #### G IPANEL ####[facility] Bmqtajejgk7[address] [place], [place] [address]Dr. [facility] EAEC Not detected Normal NOT DETECTED [facility] Comment on above: Performed By: #### G IPANEL ####[facility] Twliwzmvsp07[address] [place], [place] [address]Dr. [facility] EIEC Not detected Normal NOT DETECTED [facility] Comment on above: Performed By: #### G IPANEL ####[facility] Murmnhieqm5[address] [place], [place] [address]Dr. nicole [facility] EPEC Not detected Normal NOT DETECTED [facility] Comment on above: Performed By: #### G IPANEL ####[facility] Shahweqdac7[address] [place], [place] [address]Dr. Tadeo Smyth ETEC Not detected Normal NOT DETECTED [facility] Comment on above: Performed By: #### G IPANEL ####[facility] Whyywyhcde7354[address] [place], [place] [address]Dr. Tadeo Smyth G. Lamblia Not detected Normal NOT DETECTED [facility] Comment on above: Performed By: #### G IPANEL ####[facility] Fwwhyxftpj[address] [place], [place] [address]Dr. Tadeo Smyth GIPANEL CONTROLS PASSED Normal [facility] Comment on above: Performed By: #### G IPANEL ####[facility] Qdxmsbdtvp46[address] [place], [place] [address]Dr. Margotnicole Smyth GIPNL ARRON HEADER GI PANEL BACTERIA Normal T [facility] Comment on above: Performed By: #### G IPANEL ####[facility] Qxdfdzhynr1393 [place] [address]Dr. Yinicole Haja CACERESHD ECOLI GI PANEL DIARRHEAGEN IC E.COLI / SHIGELLA Normal [facility] Comment on above: Performed By: #### G IPANEL ####[facility] Tohzimnyqu7[address] [place], [place] [address]Dr. Yinicole Smyth GIPNLHD INFO SEE BELOW Normal [facility] Comment on above: Result Comment: EAEC - Enteroaggregative E. Coli EPEC- Enteropathogenic E. Coli ETEC- Enterotoxigenic E. Coli lt/st STEC- Shigella-like toxin-producing E. Coli stx1/stx2 EIEC- Shigella/Enteroinvasive E. Coli Performed By: #### G IPANEL ####[facility] Fjbzbbiahu69[address] [place], [place] [address]Dr. Yinicole Smyth GIPNLHD PARASITES GI PANEL PARASITES Normal [facility] Comment on above: Performed By: #### G IPANEL ####[facility] Ipovpghtgy96[address] [place], [place] [address]Dr. Tadeo Smyth GIPNLHD VIRUS GI PANEL VIRUSES Normal [facility] Comment on above: Performed By: #### G IPANEL ####[facility] Sgbrqmxhiy16[address] [place], [place] [address]Dr. Tadeo Smyth Norovirus GI/GII Not detected Normal NOT DETECTED [facility] Comment on above: Performed By: #### G IPANEL ####[facility] Aaalztvood[address] [place], [place] [address]Dr. Tadeo Smyth P. Shigelloides Not detected Normal NOT DETECTED [facility] Comment on above: Performed By: #### G IPANEL ####[facility] Pideosjiod4[address] [place], [place] [address]Dr. Tadeo Smyth Rotavirus A Not detected Normal NOT DETECTED [facility] Comment on above: Performed By: #### G IPANEL ####[facility] Nknupotdke8[address] [place], [place] [address]Dr. Tadeo Smyth Salmonella Not detected Normal NOT DETECTED [facility] Comment on above: Performed By: #### G IPANEL ####[facility] Bnuaavplhz80[address] [place], [place] [address]Dr. Tadeo Smyth Sapovirus Not detected Normal NOT DETECTED [facility] Comment on above: Performed By: #### G IPANEL ####[facility] Ekcqabqgzd39[address] [place], [place] [address]Dr. Tadeo Smyth STEC Not detected Normal NOT DETECTED [facility] Comment on above: Performed By: #### G IPANEL ####[facility] Mvyexevozp[address] [place], [place] [address]Dr. Tadeo Smyth Vibrio Not detected Normal NOT DETECTED [facility] Comment on above: Performed By: #### G IPANEL ####[facility] Eiwchspvoy87[address] [place], [place] [address]Dr. Tadeo Smyth Vibrio Cholera Not detected Normal NOT DETECTED [facility] Comment on above: Performed By: #### G IPANEL ####[facility] Grvivifbkp149[address] [place], [place] [address]Dr. Tadeo Smyth Y. Enterocolitica Not detected Normal NOT DETECTED [facility] Comment on above: Performed By: #### G IPANEL ####[facility] Ejohmhhdyf[address] [place], [place] [address]Dr. Tadeo Smyth AMYLASEon 06-06-2022 Amylase [Catalytic activity/Vol] 61 U/L Normal 25-115 [facility] Comment on above: Performed By: #### A MY, LIPA ####[facility] Kqkhkswvfz[address] [place], [place] [address]Dr. Tadeo Smyth CBC AUTO DIFFon 06-06-2022 BASO # 0.0 103/ul Normal 0.0-0.1 [facility] Comment on above: Performed By: #### C BC ####[facility] Dlmmnrqwsq[address] [place], [place] [address]Dr. Tadeo Smyth Basophils/100 WBC (Bld) 0.5 % Normal 0.2-2.0 [facility] Comment on above: Performed By: #### C BC ####[facility] Ichziwqcvv5525[address] [place], [place] [address]Dr. Tadeo Smyth EO # 0.2 103/ul Normal 0.0-0.7 [facility] Comment on above: Performed By: #### C BC ####[facility] Cmsaehktmg2739 [place] [address]Dr. Tadeo Haja Eosinophils/100 WBC (Bld) 3.4 % Normal 0.9-7.0 [facility] Comment on above: Performed By: #### C BC ####[facility] Ewqitcpigj67[address] [place], [place] [address]Dr. Tadeo Haja Erythrocyte distribution width (RBC) [Ratio] 13.2 % Normal 11.0-15.0 [facility] Comment on above: Performed By: #### C BC ####[facility] Xbgwrsjfkv186[address] [place], [place] [address]Dr. Tadeo Smyth Hematocrit (Bld) [Volume fraction] 38.3 % Normal 36.0-48.0 [facility] Comment on above: Performed By: #### C BC ####[facility] Qnqexdnmao6[address] [place], [place] [address]Dr. Tadeo Smyth Hemoglobin (Bld) [Mass/Vol] 12.0 g/dL Normal 12.0-16.0 [facility] Comment on above: Performed By: #### C BC ####[facility] Nxbwijdglw253[address] [place], [place] [address]Dr. Tadeo Smyth IG # 0.01 10e3/ul Normal 0.00-0.03 [facility] Comment on above: Performed By: #### C BC ####[facility] Jcqeabkgfq8[address] [place], [place] [address]Dr. Tadeo Smyth IG % 0.2 % Normal 0.0-0.5 [facility] Comment on above: Performed By: #### C BC ####[facility] Htbxhascby8[address] [place], [place] [address]Dr. Tadeo Smyth LYMPH # 1.7 103/ul Normal 1.2-3.8 [facility] Comment on above: Performed By: #### C BC ####[facility] Jhuqssscil8[address] [place], [place] [address]Dr. Tadeo Smyth Lymphocytes/100 WBC (Bld) 28.1 % Normal 20.5-60.0 [facility] Comment on above: Performed By: #### C BC ####[facility] Pjvcwtmcmi9603 [place] [address]DrNeo Smyth MANUAL DIFF REQ NO Normal [facility] Comment on above: Performed By: #### C BC ####[facility] Rpzdfmncmm4497 [place] [address]Dr. Tadeo Smyth MCH (RBC) [Entitic mass] 28.5 pg Normal 26.7-34.0 [facility] Comment on above: Performed By: #### C BC ####[facility] Jvlpmfneap[address] [place], [place] [address]DrNeo Smyth MCHC (RBC) [Mass/Vol] 31.3 g/dL Normal 29.9-35.2 [facility] Comment on above: Performed By: #### C BC ####[facility] Armnqwcucg39[address] [place], [place] [address]DrNeo Smyth MCV (RBC) [Entitic vol] 91.0 fL Normal 81.0-99.0 [facility] Comment on above: Performed By: #### C BC ####[facility] Ztapmnzscy[address] [place], [place] [address]DrNeo Smyth MONO # 0.4 103/ul Normal 0.3-0.8 [facility] Comment on above: Performed By: #### C BC ####[facility] Eldhnmxfyw20[address] [place], [place] [address]DrNeo Smyth Monocytes/100 WBC (Bld) 7.1 % Normal 1.7-12.0 [facility] Comment on above: Performed By: #### C BC ####[facility] Vhohvmqmjn[address] [place], [place] [address]DrNeo Smyth NEUT # 3.6 103/ul Normal 1.4-6.5 [facility] Comment on above: Performed By: #### C BC ####[facility] Fpbywpkrsv24[address] [place], [place] [address]DrNoe Smyth Neutrophils/100 WBC (Bld) 60.7 % Normal 43.0-75.0 [facility] Comment on above: Performed By: #### C BC ####[facility] Cqlsacbahr9193 [place] [address]Dr. Tadeo Smyth Platelet mean volume (Bld) [Entitic vol] 8.9 fL Critically low 9.5-13.5 [facility] Comment on above: Performed By: #### C BC ####[facility] Tzflubmday1139 [place] [address]Dr. Tadeo Smyth PLT 374 103/ul Normal 150-450 [facility] Comment on above: Performed By: #### C BC ####[facility] Bdzanwlqkw34[address] [place], [place] [address]Dr. Tadeo Smyth RBC 4.21 106/ul Normal 4.20-5.40 [facility] Comment on above: Performed By: #### C BC ####[facility] Shkjdlikfz[address] [place], [place] [address]Dr. Tadeo Smyth WBC 5.9 103/ul Normal 4.0-11.0 [facility] Comment on above: Performed By: #### C BC ####[facility] Nxwajhgfsy[address] [place], [place] [address]Dr. Tadeo Smyth CT ABD/PELV W CONon 06-06-[address] ABD/PELV W CON Normal [facility] ER URINE PROFILEon 2 Bilirubin Ql (U) Negative Normal NEGATIVE [facility] Comment on above: Performed By: #### KAROL MERCHANT ####[facility] Udxhrhudui34[address] [place] [address]Dr. Tadeo Smyth Clarity (U) CLOUDY Abnormal CLEAR [facility] Comment on above: Performed By: #### SANDRO MERCHANTRO ####[facility] Awelfzefpp[address] [place], [place] [address]Dr. Tadeo Smyth Color (U) LT. YELLOW Normal YELLOW [facility] Comment on above: Performed By: #### KAROL MERCHANT ####[facility] Yzoraqjwpt[address] [place], [place] [address]Dr. Tadeo ENG A micrscopic examina tion will be performed if indicated. Normal [facility] Comment on above: Performed By: #### KAROL MERCHANT ####[facility] Axguvzodck1887 [place] [address]Dr. Tadeo Smyth Glucose Ql (U) Negative Normal NEGATIVE The [facility] Comment on above: Performed By: #### KAROL MERCHANT ####[facility] Wupfaapkfh6360 [place] [address]Dr. Tadeo Smyth Hemoglobin Ql (U) TRACE-INTACT Abnormal NEGATIVE [facility] Comment on above: Performed By: #### KAROL MERCHANT ####[facility] Fvflbqamrp[address] [place], [place] [address]Dr. Tadeo Smyth Ketones Ql (U) Negative Normal NEGATIVE [facility] Comment on above: Performed By: #### KAROL MERCHANT ####[facility] Pweigjgblw[address] [place], [place] [address]Dr. Tadeo Smyth LEUKOCYTES SMALL Abnormal NEGATIVE [facility] Comment on above: Performed By: #### KAROL MERCHANT ####[facility] Hvckabgidh8163 [place] [address]Dr. Tadeo Smyth Nitrite Ql (U) Negative Normal NEGATIVE [facility] Comment on above: Performed By: #### SANDRO MERCHANTRO ####[facility] Xdwnkwdsbj4873 [place] [address]Dr. Tadeo Smyth pH (U) 6.0 [pH] Normal 5-9 [facility] Comment on above: Performed By: #### SANDRO MERCHANTRO ####[facility] Rdtozkvpli4823 [place] [address]Dr. Tadeo Smyth SPEC GRAVITY 1.020 Normal 1.005-<=1.0 25 [facility] Comment on above: Performed By: #### KAROL MERCHANT ####[facility] Aigrgrgpiy6929 [place] [address]Dr. Tadeo Smyth UA PROTEIN Negative Normal NEGATIVE/ TRACE [facility] Comment on above: Performed By: #### KAROL MERCHANT ####[facility] Jqxfuqxahj3204 [place] [address]Dr. Tadeo Smyth UR MICRO IND INDICATED Normal [facility] Comment on above: Performed By: #### E KAROL FRANCISCO ####[facility] Czjvdeyxxa7313 [place] [address]Dr. Tadeo Smyth Urobilinogen Qn (U) 0.2 {Benito'U}/dL Normal 0.2 - 1. 0 [facility] Comment on above: Performed By: #### KAROL MERCHANT ####[facility] Rjawwaufkk[address] [place] [address]Dr. Tadeo Smyth LIPASEon 06-06-2022 Lipase [Catalytic activity/Vol] 100.0 U/L Normal 73.0-393.0 [facility] Comment on above: Performed By: #### A MY, LIPA ####[facility] Ipgvfcuutj[address] [place], [place] [address]Dr. Tadeo Smyth PROF 14(COMP METB)on 022 Albumin [Mass/Vol] 3.3 g/dL Critically low 3.4-5.0 [facility] Comment on above: Performed By: #### C MP ####[facility] Asshtinjxm[address] [place], [place] [address]Dr. Tadeo Smyth Albumin/Globulin [Mass ratio] 0.9 {ratio} Normal [facility] Comment on above: Performed By: #### C MP ####[facility] Qwoyopvbek5127 [place] [address]Dr. Tadeo Smyth ALP [Catalytic activity/Vol] 140 U/L Critically high 46-116 [facility] Comment on above: Performed By: #### C MP ####[facility] Hoosebmvrm[address] [place], [place] [address]Dr. Tadeo Smyth ALT [Catalytic activity/Vol] 23 U/L Normal 14-59 [facility] Comment on above: Performed By: #### C MP ####[facility] Orbgewprtc32[address] [place], [place] [address]Dr. Tadeo mSyth Anion gap [Moles/Vol] 11.6 mmol/L Normal [facility] Comment on above: Performed By: #### C MP ####[facility] Xfbkqozlgr9890 [place] [address]Dr. Tadeo Smyth AST [Catalytic activity/Vol] 18 U/L Normal 15-37 [facility] Comment on above: Performed By: #### C MP ####[facility] Ojskjajerd24[address] [place], [place] [address]Dr. Tadeo Smyth Bilirubin [Mass/Vol] 0.2 mg/dL Normal 0.2-1.0 [facility] Comment on above: Performed By: #### C MP ####[facility] Quqhtngfqn5168[address] [place], [place] [address]Dr. Tadeo Smyth Calcium [Mass/Vol] 8.8 mg/dL Normal 8.5-10.1 [facility] Comment on above: Performed By: #### C MP ####[facility] Ugltcdlbhv8034[address] [place], [place] [address]Dr. Tadeo Haja Chloride [Moles/Vol] 109 mmol/L Critically high 98-107 [facility] Comment on above: Performed By: #### C MP ####[facility] Csaahjesny[address] [place], [place] [address]Dr. Tadeo Smyth CO2 [Moles/Vol] 26.3 mmol/L Normal 21.0-32.0 [facility] Comment on above: Performed By: #### C MP ####[facility] Acgnausgof[address] [place], [place] [address]Dr. Tadeo Haja Creatinine [Mass/Vol] 0.81 mg/dL Normal 0.55-1.02 [facility] Comment on above: Performed By: #### C MP ####[facility] Docltvubvr[address] [place], [place] [address]Dr. Tadeo Haja EGFR-AF PORTUGUESE >60 Normal >=60 [facility] Comment on above: Performed By: #### C MP ####[facility] Ygchtonixs[address] [place], [place] [address]Dr. Tadeo Smyth EGFR-NON AF PORTUGUESE >60 Normal >=60 [facility] Comment on above: Performed By: #### C MP ####[facility] Tmtvtcmnvx3526 [place] [address]Dr. Margotnicole Haja Globulin (S) [Mass/Vol] 3.7 g/dL Normal [facility] Comment on above: Performed By: #### C MP ####[facility] Jqjhmvmoev0094 [place] [address]Dr. Margotnicole Haja Glucose [Mass/Vol] 90 mg/dL Normal 74-106 [facility] Comment on above: Performed By: #### C MP ####[facility] Cmpvndhrmo4001 [place] [address]Dr. Tadeo Smyth Potassium [Moles/Vol] 3.9 mmol/L Normal 3.5-5.1 [facility] Comment on above: Performed By: #### C MP ####[facility] Cscdcwjvta[address] [place], [place] [address]Dr. Tadeo Haja Protein [Mass/Vol] 7.0 g/dL Normal 6.4-8.2 [facility] Comment on above: Performed By: #### C MP ####[facility] Vdxparpzml[address] [place], [place] [address]Dr. Tadeo Haja Sodium [Moles/Vol] 143 mmol/L Normal 136-145 [facility] Comment on above: Performed By: #### C MP ####[facility] Qdoefwmygd[address] [place], [place] [address]Dr. Margotnicole Haaj Urea nitrogen [Mass/Vol] 12.0 mg/dL Normal 7.0-18.0 [facility] Comment on above: Performed By: #### C MP ####[facility] Ulutfocfuk[address] [place], [place] [address]Dr. Tadeo Smyth Urea nitrogen/Creatinine [Mass ratio] 14.8 mg/mg Normal [facility] Comment on above: Performed By: #### C MP ####[facility] Kgeawgyipz9676 [place] [address]Dr. Tadeo Smyth URINE MICROSCOPIC ONLYon 10- 02-2022 BACTERIA LARGE Abnormal NONE SEEN [facility] Comment on above: Performed By: #### Matthew FRANCISCO UMICRO ####[facility] Qyostnyphe3121 [place] [address]Dr. Tadeo Smyth Bacteria identified Cx Nom (U) INDICATED Normal [facility] Comment on above: Performed By: #### Matthew FRANCISCO UMICRO ####[facility] Romrdehbxv3920 [place] [address]Dr. Tadeo Smyth CAST NONE SEEN Normal NONE SEEN [facility] Comment on above: Performed By: #### Matthew FRANCISCO UMICRO ####[facility] Wzwcbuxrja5463 [place] [address]Dr. Tadeo Smyth Crystals LM Nom (Urine sed) NONE SEEN Normal NONE SEEN [facility] Comment on above: Performed By: #### Matthew FRANCISCO UMICRO ####[facility] Gjcbnweegf[address] [place], [place] [address]Dr. Tadeo Smyth Epithelial cells LM Ql (Urine sed) RARE Normal NONE SEEN /RARE [facility] Comment on above: Performed By: #### Matthew FRANCISCO UMICRO ####[facility] Chspjeklve[address] [place], [place] [address]Dr. Tadeo Smyth MUCOUS TRACE Abnormal NONE SEEN [facility] Comment on above: Performed By: #### Matthew FRANCISCO UMICRO ####[facility] Ewpvidulok[address] [place], [place] [address]Dr. Tadeo Smyth RBC 0-2 Normal 0-2 [facility] Comment on above: Performed By: #### Matthew FRANCISCO UMICRO ####[facility] Phzieqqgsb[address] [place], [place] [address]Dr. Tadeo Smyth WBC 2-5 Abnormal NONE SEEN [facility] Comment on above: Performed By: #### Matthew FRANCISCO UMICRO ####[facility] Jngoghfcny[address] [place], [place] [address]Dr. Tadeo Smyth AMYLASEon 06-04-2022 Amylase [Catalytic activity/Vol] 61 U/L Normal 25-115 [facility] Comment on above: Performed By: #### A MY, CMP, LIPA ####[facility] Xlfbrbgxtc9446 [place] [phone]. Margotnicole Smyth CBC AUTO DIFFon 06-04-2022 BASO # 0.0 103/ul Normal 0.0-0.1 [facility] Comment on above: Performed By: #### C BC ####[facility] Kkaqknfvwy3389 [place] [phone]. Tadeo Smyth Basophils/100 WBC (Bld) 0.5 % Normal 0.2-2.0 [facility] Comment on above: Performed By: #### C BC ####[facility] Lqzekimfdj2562 [place] [phone]. Tadeo Smyth EO # 0.3 103/ul Normal 0.0-0.7 [facility] Comment on above: Performed By: #### C BC ####[facility] Ttfejfgkhy9581 [place] [address]Dr. Tadeo Smyth Eosinophils/100 WBC (Bld) 4.7 % Normal 0.9-7.0 [facility] Comment on above: Performed By: #### C BC ####[facility] Oqykeazhxt3607 [place] [address]Dr. Tadeo Smyth Erythrocyte distribution width (RBC) [Ratio] 13.2 % Normal 11.0-15.0 [facility] Comment on above: Performed By: #### C BC ####[facility] Gkcxwrmnfp2372 [place] [phone]. Tadeo Smyth Hematocrit (Bld) [Volume fraction] 36.9 % Normal 36.0-48.0 [facility] Comment on above: Performed By: #### C BC ####[facility] Oframnacyn6955 [place] [phone]. Tadeo Smyth Hemoglobin (Bld) [Mass/Vol] 11.9 g/dL Critically low 12.0-16.0 [facility] Comment on above: Performed By: #### C BC ####[facility] Cvvrjbpgss0081 [place] [phone]. Tadeo Smyth IG # 0.01 10e3/ul Normal 0.00-0.03 [facility] Comment on above: Performed By: #### C BC ####[facility] Agjvtrvhwi6288 [place] [address]Dr. Tadeo Smyth IG % 0.2 % Normal 0.0-0.5 [facility] Comment on above: Performed By: #### C BC ####[facility] Ggkuvjgqyl4788 [place] [address]Dr. Tadeo Smyth LYMPH # 2.3 103/ul Normal 1.2-3.8 [facility] Comment on above: Performed By: #### C BC ####[facility] Vnkwyovkws9899 [place] [address]Dr. Tadeo Smyth Lymphocytes/100 WBC (Bld) 37.3 % Normal 20.5-60.0 [facility] Comment on above: Performed By: #### C BC ####[facility] Vopegynxlv[address] [place], [place] [address]Dr. Tadeo Smyth MANUAL DIFF REQ NO Normal [facility] Comment on above: Performed By: #### C BC ####[facility] Bsaizxoexm6024 [place] [address]Dr. Tadeo Smyth MCH (RBC) [Entitic mass] 29.0 pg Normal 26.7-34.0 [facility] Comment on above: Performed By: #### C BC ####[facility] Ptnikxeyyt[address] [place], [place] [address]Dr. Tadeo Smyth MCHC (RBC) [Mass/Vol] 32.2 g/dL Normal 29.9-35.2 [facility] Comment on above: Performed By: #### C BC ####[facility] Svffspknqw[address] [place], [place] [address]Dr. Tadeo Smyth MCV (RBC) [Entitic vol] 90.0 fL Normal 81.0-99.0 [facility] Comment on above: Performed By: #### C BC ####[facility] Hogupflily[address] [place], [place] [address]Dr. Tadeo Smyth MONO # 0.4 103/ul Normal 0.3-0.8 [facility] Comment on above: Performed By: #### C BC ####[facility] Joqunqtfez0324 [place] [phone]. Tadeo Smyth Monocytes/100 WBC (Bld) 6.8 % Normal 1.7-12.0 [facility] Comment on above: Performed By: #### C BC ####[facility] Ihjyzochno8444 [place] [phone]. Tadeo Smyth NEUT # 3.2 103/ul Normal 1.4-6.5 [facility] Comment on above: Performed By: #### C BC ####[facility] Ztjeqjabda7843 [place] [phone]. Tadeo Smyth Neutrophils/100 WBC (Bld) 50.5 % Normal 43.0-75.0 [facility] Comment on above: Performed By: #### C BC ####[facility] Xkisqytdjp4115 [place] [phone]. Tadeo Smyth Platelet mean volume (Bld) [Entitic vol] 8.9 fL Critically low 9.5-13.5 [facility] Comment on above: Performed By: #### C BC ####[facility] Ojmbdnltoz2126 [place] [phone]. Tadeo Smyth PLT 387 103/ul Normal 150-450 [facility] Comment on above: Performed By: #### C BC ####[facility] Rhqrxtfars1709 [place] [phone]. Tadeo Smyth RBC 4.10 106/ul Critically low 4.20-5.40 [facility] Comment on above: Performed By: #### C BC ####[facility] Ydafokumve1349 [place] [phone]. Tadeo Smyth WBC 6.2 103/ul Normal 4.0-11.0 [facility] Comment on above: Performed By: #### C BC ####[facility] Tlcipmvtzg1582 [place] [phone]. Tadeo Smyth CT ABD/PELV W CONon 06-04-[address] ABD/PELV W CON Normal [facility] ER URINE PROFILEon 2 Bilirubin Ql (U) Negative Normal NEGATIVE [facility] Comment on above: Performed By: #### Matthew FRANCISCO UMICRO ####[facility] Gyqzungnoa[address] [place], [place] [address]Dr. Tadeo Smyth Clarity (U) CLEAR Normal CLEAR [facility] Comment on above: Performed By: #### Matthew FRANCISCO UMICRO ####[facility] Lkzaawrwey2054 [place] [address]Dr. Tadeo Smyth Color (U) LT. YELLOW Normal YELLOW [facility] Comment on above: Performed By: #### Matthew FRANCISCO UMICRO ####[facility] Xulzuywpgn[address] [place], [place] [address]Dr. Tadeo Smyth ERUAHD A micrscopic examina tion will be performed if indicated. Normal [facility] Comment on above: Performed By: #### Matthew FRANCISCO UMICRO ####[facility] Cxdlgrgzrn0445[address] [place], [place] [address]Dr. Tadeo Smyth Glucose Ql (U) Negative Normal NEGATIVE [facility] Comment on above: Performed By: #### Matthew FRANCISCO UMICRO ####[facility] Inmsdlqxzl8269[address] [place], [place] [address]Dr. Tadeo Smyth Hemoglobin Ql (U) TRACE-INTACT Abnormal NEGATIVE [facility] Comment on above: Performed By: #### Matthew FRANCISCO UMICRO ####[facility] Ryilsmaoxj59[address] [place], [place] [address]Dr. Tadeo Smyth Ketones Ql (U) Negative Normal NEGATIVE [facility] Comment on above: Performed By: #### Matthew FRANCISCO UMICRO ####[facility] Oxpvwjggie1255[address] [place], [place] [address]Dr. Tadeo Smyth LEUKOCYTES Negative Normal NEGATIVE [facility] Comment on above: Performed By: #### Matthew FRANCISCO UMICRO ####[facility] Kzfpaiqrba2725[address] [place], [place] [address]Dr. Tadeo Smyth Nitrite Ql (U) Negative Normal NEGATIVE [facility] Comment on above: Performed By: #### KAROL MERCHANT ####[facility] Pptirqhral8742 [place] [address]Dr. Tadeo Smyth pH (U) 6.5 [pH] Normal 5-9 [facility] Comment on above: Performed By: #### KARLO MERCHANT ####[facility] Giybybwhdd2095 [place] [address]Dr. Tadeo Smyth SPEC GRAVITY 1.015 Normal 1.005-<=1.[address] [place] [address] Comment on above: Performed By: #### KAROL MERCHANT ####[facility] Tvmizaebcm9779 [place] [address]Dr. Tadeo Smyth UA PROTEIN Negative Normal NEGATIVE/ TRACE [facility] Comment on above: Performed By: #### KAROL MERCHANT ####[facility] Aojuflzlev54[address] [place], [place] [address]Dr. Tadeo Smyth UR MICRO IND INDICATED Normal [facility] Comment on above: Performed By: #### KAROL MERCHANT ####[facility] Djxxfspcdo2766[address] [place], [place] [address]Dr. Tadeo Smyth Urobilinogen Qn (U) 0.2 {Benito'U}/dL Normal 0.2 - 1. 0 [facility] Comment on above: Performed By: #### KAROL MERCHANT ####[facility] Ohtttwcvcl[address] [place], [place] [address]Dr. Tadeo Smyth LIPASEon 06-04-2022 Lipase [Catalytic activity/Vol] 81.0 U/L Normal 73.0-393.0 [facility] Comment on above: Performed By: #### A MY, CMP, LIPA ####[facility] Wwtdkbtbjd[address] [place], [place] [address]Dr. Tadeo Smyth PROF 14(COMP METB)on 022 Albumin [Mass/Vol] 3.6 g/dL Normal 3.4-5.0 [facility] Comment on above: Performed By: #### A MY, CMP, LIPA ####[facility] Saemhszgfx[address] [place], [place] [address]Dr. Tadeo Smyth Albumin/Globulin [Mass ratio] 1.0 {ratio} Normal [facility] Comment on above: Performed By: #### A MY, CMP, LIPA ####[facility] Fcppjwldkd0042 [place] [address]Dr. Tadeo Smyth ALP [Catalytic activity/Vol] 150 U/L Critically high 46-116 [facility] Comment on above: Performed By: #### A MY, CMP, LIPA ####[facility] Gnwwwuabaa6141 [place] [address]Dr. Tadeo Smyth ALT [Catalytic activity/Vol] 23 U/L Normal 14-59 [facility] Comment on above: Performed By: #### A MY, CMP, LIPA ####[facility] Oaxrgimxbz3540 [place] [address]Dr. Margotnicole Smyth Anion gap [Moles/Vol] 13.2 mmol/L Normal [facility] Comment on above: Performed By: #### A MY, CMP, LIPA ####[facility] Vkxddvfavq5112 [place] [address]Dr. Tadeo Smyth AST [Catalytic activity/Vol] 12 U/L Critically low 15-37 [facility] Comment on above: Performed By: #### A MY, CMP, LIPA ####[facility] Dzxheftvyy9488 [place] [address]Dr. Tadeo Smyth Bilirubin [Mass/Vol] 0.1 mg/dL Critically low 0.2-1.0 [facility] Comment on above: Performed By: #### A MY, CMP, LIPA ####[facility] Mbekzakmuc6592 [place] [address]Dr. Tadeo Smyth Calcium [Mass/Vol] 9.0 mg/dL Normal 8.5-10.1 [facility] Comment on above: Performed By: #### A MY, CMP, LIPA ####[facility] Oefjflkjrw6864 [place] [address]Dr. Margotnicole Smyth Chloride [Moles/Vol] 104 mmol/L Normal 98-107 [facility] Comment on above: Performed By: #### A MY, CMP, LIPA ####[facility] Kwpwosthtr5093 [place] [address]Dr. Tadeo Smyth CO2 [Moles/Vol] 26.6 mmol/L Normal 21.0-32.0 [facility] Comment on above: Performed By: #### A MY, CMP, LIPA ####[facility] Wktygvphnc4240 [place] [address]Dr. Tadeo Smyth Creatinine [Mass/Vol] 0.97 mg/dL Normal 0.55-1.02 [facility] Comment on above: Performed By: #### A MY, CMP, LIPA ####[facility] Urcfjcnapy[address] [place], [place] [address]Dr. Tadeo Smyth EGFR-AF PORTUGUESE >60 Normal >=60 [facility] Comment on above: Performed By: #### A MY, CMP, LIPA ####[facility] Vnzxomvkxc35[address] [place], [place] [address]Dr. Tadeo Smyth EGFR-NON AF PORTUGUESE 60 mL/min/1.73m2 Normal >=60 [facility] Comment on above: Performed By: #### A MY, CMP, LIPA ####[facility] Cnxskfugpy4[address] [place], [place] [address]Dr. Tadeo Smyth Globulin (S) [Mass/Vol] 3.7 g/dL Normal [facility] Comment on above: Performed By: #### A MY, CMP, LIPA ####[facility] Tdmlxgwope[address] [place], [place] [address]Dr. Tadoe Smyth Glucose [Mass/Vol] 109 mg/dL Critically high 74-106 T [facility] Comment on above: Performed By: #### A MY, CMP, LIPA ####[facility] Llqrmzpzmd16[address] [place], [place] [address]Dr. Tadeo Smyth Potassium [Moles/Vol] 3.8 mmol/L Normal 3.5-5.1 [facility] Comment on above: Performed By: #### A MY, CMP, LIPA ####[facility] Yhmzukyrrx1682 [place] [address]Dr. Tadeo Smyth Protein [Mass/Vol] 7.3 g/dL Normal 6.4-8.2 [facility] Comment on above: Performed By: #### A MY CMP, LIPA ####[facility] Axulqowkgz1645 [place] [address]Dr. Tadeo Smyth Sodium [Moles/Vol] 140 mmol/L Normal 136-145 [facility] Comment on above: Performed By: #### A MY CMP, LIPA ####[facility] Zqtawkzouy7678 [place] [address]Dr. Margotnicole Smyth Urea nitrogen [Mass/Vol] 21.0 mg/dL Critically high 7.0-18.0 [facility] Comment on above: Performed By: #### A TANYA CMP, LIPA ####[facility] Smhgoyotxf8768 [place] [address]Dr. Tadeo Smyth Urea nitrogen/Creatinine [Mass ratio] 21.6 mg/mg Normal [facility] Comment on above: Performed By: #### A TANYA CMP, LIPA ####[facility] Opkvurudje[address] [place], [place] [address]Dr. Tadeo Haja URINE MICROSCOPIC ONLYon BACTERIA NONE SEEN Normal NONE SEEN [facility] Comment on above: Performed By: #### KAROL MERCHANT ####[facility] Bmpunndsls[address] [place], [place] [address]Dr. Tadeo Smyth Bacteria identified Cx Nom (U) NOT INDICATED Normal [facility] Comment on above: Performed By: #### KAROL MERCHANT ####[facility] Zictnfhxge6801 [place] [address]Dr. Tadeo Smyth CAST NONE SEEN Normal NONE SEEN [facility] Comment on above: Performed By: #### SANDRO MERCHANTRO ####[facility] Vlkjwfavjq6118 [place] [address]Dr. Tadeo Smyth Crystals LM Nom (Urine sed) NONE SEEN Normal NONE SEEN [facility] Comment on above: Performed By: #### KAROL MERCHANT ####[facility] Ytiyrgkypu[address] [place], [place] [address]Dr. Tadeo Smyth Epithelial cells LM Ql (Urine sed) FEW Abnormal NONE SEEN /RARE [facility] Comment on above: Performed By: #### SANDRO MERCHANTRO ####[facility] Xqfzgmpppq8292 [place] [address]Dr. Tadeo Smyth MUCOUS NONE SEEN Normal NONE SEEN [facility] Comment on above: Performed By: #### SANDRO MERCHANTRO ####[facility] Mnceugghxc6[address] [place], [place] [address]Dr. Tadeo Smyth RBC 0-2 Normal 0-2 [facility] Comment on above: Performed By: #### SANDRO MERCHANTRO ####[facility] Zhqdqhqbwk20[address] [place], [place] [address]Dr. Tadeo Smyth WBC NONE SEEN Normal NONE SEEN [facility] Comment on above: Performed By: #### KAROL MERCHANT ####[facility] [address] [place], [place] [address]Dr. Tadeo Smyth MICRO OTHER TESTSOrdered By: Guillermo Rocha on 04-29-2022 Fecal WBC Lactoferrin Negative (04/29/22 8:00 AM) Normal Negative [facility] Man Sero CULTURE URINEon 03-31-2022 CULTURE URINE Normal [facility] Comment on above: Performed By: #### U RCX ####[facility] Rvqffqxbmk[address] [place], [place] [address]Dr. Tadeo Smyth CBC AUTO DIFFon 03-30-2022 BASO # 0.0 103/ul Normal 0.0-0.1 [facility] Comment on above: Performed By: #### C BC ####[facility] Wncigrqdhj7[address] [place], [place] [address]Dr. Tadeo Smyth Basophils/100 WBC (Bld) 0.4 % Normal 0.2-2.0 [facility] Comment on above: Performed By: #### C BC ####[facility] Irdpklieki[address] [place] [address]Dr. Tadeo Smyth EO # 0.3 103/ul Normal 0.0-0.7 [facility] Comment on above: Performed By: #### C BC ####[facility] Qnyjzwyzvw5854 [place] [address]Dr. Tadeo Smyth Eosinophils/100 WBC (Bld) 5.1 % Normal 0.9-7.0 [facility] Comment on above: Performed By: #### C BC ####[facility] Tevavlbmlz12[address] [place], [place] [address]Dr. Tadeo Smyth Erythrocyte distribution width (RBC) [Ratio] 12.8 % Normal 11.0-15.0 [facility] Comment on above: Performed By: #### C BC ####[facility] Qfapgyoelh84[address] [place], [place] [address]Dr. Tadeo Smyth Hematocrit (Bld) [Volume fraction] 36.4 % Normal 36.0-48.0 [facility] Comment on above: Performed By: #### C BC ####[facility] Kdexjwqeyy[address] [place], [place] [address]Dr. Tadeo Smyth Hemoglobin (Bld) [Mass/Vol] 12.0 g/dL Normal 12.0-16.0 [facility] Comment on above: Performed By: #### C BC ####[facility] Jskptostzo5[address] [place], [place] [address]Dr. Tadeo Smyth IG # 0.02 10e3/ul Normal 0.00-0.03 [facility] Comment on above: Performed By: #### C BC ####[facility] Fnqeccnvxo[address] [place], [place] [address]Dr. Tadeo Smyth IG % 0.4 % Normal 0.0-0.5 [facility] Comment on above: Performed By: #### C BC ####[facility] Dpzjpxudel5[address] [place], [place] [address]Dr. Tadeo Smyth LYMPH # 1.4 103/ul Normal 1.2-3.8 [facility] Comment on above: Performed By: #### C BC ####[facility] Utqdvjryhc199[address] [place], [place] [address]Dr. Tadeo Smyth Lymphocytes/100 WBC (Bld) 25.5 % Normal 20.5-60.0 [facility] Comment on above: Performed By: #### C BC ####[facility] Uexmlxjvir1181 [place] [phone]. Tadeo Smyth MANUAL DIFF REQ NO Normal [facility] Comment on above: Performed By: #### C BC ####[facility] Ejbihviidl4633 [place] [phone]. Tadeo Smyth MCH (RBC) [Entitic mass] 29.1 pg Normal 26.7-34.0 [facility] Comment on above: Performed By: #### C BC ####[facility] Ciobjsjpgr1973 [place] [phone]. Tadeo Smyth MCHC (RBC) [Mass/Vol] 33.0 g/dL Normal 29.9-35.2 [facility] Comment on above: Performed By: #### C BC ####[facility] Shayxlhdoo[address] [place], [place] [address]Dr. Tadeo Smyth MCV (RBC) [Entitic vol] 88.3 fL Normal 81.0-99.0 [facility] Comment on above: Performed By: #### C BC ####[facility] Pbcrcezwjh87[address] [place], [place] [address]Dr. Tadeo Smyth MONO # 0.4 103/ul Normal 0.3-0.8 [facility] Comment on above: Performed By: #### C BC ####[facility] Lgmqobbhhm[address] [place], [place] [address]Dr. Tadeo Smyth Monocytes/100 WBC (Bld) 7.1 % Normal 1.7-12.0 [facility] Comment on above: Performed By: #### C BC ####[facility] Sexbbsisry[address] [place], [place] [address]Dr. Tadeo Smyth NEUT # 3.4 103/ul Normal 1.4-6.5 [facility] Comment on above: Performed By: #### C BC ####[facility] Tzbwknssof8[address] [place], [place] [address]Dr. Tadeo Smyth Neutrophils/100 WBC (Bld) 61.5 % Normal 43.0-75.0 [facility] Comment on above: Performed By: #### C BC ####[facility] Qykbphlzzx8299 [place] [address]Dr. Tadeo Smyth Platelet mean volume (Bld) [Entitic vol] 8.8 fL Critically low 9.5-13.5 [facility] Comment on above: Performed By: #### C BC ####[facility] Bqssfsrnfv5803 [place] [address]Dr. Tadeo Smyth PLT 324 103/ul Normal 150-450 [facility] Comment on above: Performed By: #### C BC ####[facility] Ksigoxhqhf1994 [place] [address]Dr. Tadeo Smyth RBC 4.12 106/ul Critically low 4.20-5.40 [facility] Comment on above: Performed By: #### C BC ####[facility] Bdhziwqgpk3307 [place] [address]Dr. Tadeo Smyth WBC 5.5 103/ul Normal 4.0-11.0 [facility] Comment on above: Performed By: #### C BC ####[facility] Fngqaqhlyn8762 [place] [address]Dr. Tadeo Smyth PROF 14(COMP METB)on 022 Albumin [Mass/Vol] 3.1 g/dL Critically low 3.4-5.0 [facility] Comment on above: Performed By: #### C MP ####[facility] Wjdsqklubj7809 [place] [address]Dr. Tadeo Smyth Albumin/Globulin [Mass ratio] 0.9 {ratio} Normal [facility] Comment on above: Performed By: #### C MP ####[facility] Cgcohudtyl7181 [place] [address]Dr. Tadeo Smyth ALP [Catalytic activity/Vol] 119 U/L Critically high 46-116 [facility] Comment on above: Performed By: #### C MP ####[facility] Kqotbbhcqg7427 [place] [address]Dr. Tadeo Smyth ALT [Catalytic activity/Vol] 17 U/L Normal 14-59 [facility] Comment on above: Performed By: #### C MP ####[facility] Rtzjadfgtn7762 [place] [address]Dr. Tadeo Smyth Anion gap [Moles/Vol] 12.0 mmol/L Normal [facility] Comment on above: Performed By: #### C MP ####[facility] Evdbemwsbg5717 [place] [address]Dr. Tadeo Smyth AST [Catalytic activity/Vol] 16 U/L Normal 15-37 [facility] Comment on above: Performed By: #### C MP ####[facility] Snhapluoar78[address] [place], [place] [address]Dr. Tadeo Smyth Bilirubin [Mass/Vol] 0.4 mg/dL Normal 0.2-1.0 [facility] Comment on above: Performed By: #### C MP ####[facility] Vhlzypaxxv3[address] [place], [place] [address]Dr. Tadeo Smyth Calcium [Mass/Vol] 8.9 mg/dL Normal 8.5-10.1 [facility] Comment on above: Performed By: #### C MP ####[facility] Lgbxuverhu1559[address] [place], [place] [address]Dr. Tadeo Smyth Chloride [Moles/Vol] 107 mmol/L Normal 98-107 [facility] Comment on above: Performed By: #### C MP ####[facility] Kjpkbagqbn[address] [place], [place] [address]Dr. Margotnicole Smyth CO2 [Moles/Vol] 26.9 mmol/L Normal 21.0-32.0 [facility] Comment on above: Performed By: #### C MP ####[facility] Lmazhndwuv1618[address] [place], [place] [address]Dr. Tadeo Smyth Creatinine [Mass/Vol] 0.82 mg/dL Normal 0.55-1.02 [facility] Comment on above: Performed By: #### C MP ####[facility] Bckuvrazot[address] [place], [place] [address]Dr. Margotnicole Haja EGFR-AF PORTUGUESE >60 Normal >=60 [facility] Comment on above: Performed By: #### C MP ####[facility] Gbqcrdhrhl9139 [place] [phone]. Tadeo Smyth EGFR-NON AF PORTUGUESE >60 Normal >=60 [facility] Comment on above: Performed By: #### C MP ####[facility] Xwbbmxvrip6803 [place] [address]Dr. Tadeo Smyth Globulin (S) [Mass/Vol] 3.5 g/dL Normal [facility] Comment on above: Performed By: #### C MP ####[facility] Yhzzfyparl8483 [place] [address]Dr. Tadeo Smyth Glucose [Mass/Vol] 104 mg/dL Normal 74-106 [facility] Comment on above: Performed By: #### C MP ####[facility] Hyallxtugw[address] [place], [place] [address]Dr. Tadeo Smyth Potassium [Moles/Vol] 3.9 mmol/L Normal 3.5-5.1 [facility] Comment on above: Performed By: #### C MP ####[facility] Qlzyuddifh0716[address] [place], [place] [address]Dr. Tadeo Smyth Protein [Mass/Vol] 6.6 g/dL Normal 6.4-8.2 [facility] Comment on above: Performed By: #### C MP ####[facility] Uekoqfjsoa[address] [place], [place] [address]Dr. Tadeo Smyth Sodium [Moles/Vol] 142 mmol/L Normal 136-145 [facility] Comment on above: Performed By: #### C MP ####[facility] Dnjlbxdoan6721[address] [place], [place] [address]Dr. Tadeo Smyth Urea nitrogen [Mass/Vol] 5.0 mg/dL Critically low 7.0-18.0 [facility] Comment on above: Performed By: #### C MP ####[facility] Zgtqtbtave65[address] [place], [place] [address]Dr. Tadeo Smyth Urea nitrogen/Creatinine [Mass ratio] 6.1 mg/mg Normal [facility] Comment on above: Performed By: #### C MP ####[facility] Gyzdnleomr1540 [place] [address]Dr. Tadeo Smyth CBC AUTO DIFFon 03-29-2022 BASO # 0.0 103/ul Normal 0.0-0.1 [facility] Comment on above: Performed By: #### C BC ####[facility] Llutaxqtag987[address] [place], [place] [address]Dr. Tadeo Smyth Basophils/100 WBC (Bld) 0.4 % Normal 0.2-2.0 [facility] Comment on above: Performed By: #### C BC ####[facility] Qxrecpfzlo399[address] [place], [place] [address]Dr. Tadeo Smyth EO # 0.2 103/ul Normal 0.0-0.7 [facility] Comment on above: Performed By: #### C BC ####[facility] Ggrxjkmqvo2[address] [place], [place] [address]Dr. Tadeo Haja Eosinophils/100 WBC (Bld) 4.3 % Normal 0.9-7.0 [facility] Comment on above: Performed By: #### C BC ####[facility] Emagobmjvd100[address] [place], [place] [address]Dr. Tadeo Smyth Erythrocyte distribution width (RBC) [Ratio] 12.9 % Normal 11.0-15.0 [facility] Comment on above: Performed By: #### C BC ####[facility] Xaoxkchebo14[address] [place], [place] [address]Dr. Tadeo Smyth Hematocrit (Bld) [Volume fraction] 33.8 % Critically low 36.0-48.0 [facility] Comment on above: Performed By: #### C BC ####[facility] Ggnhavthlx[address] [place], [place] [address]Dr. Tadeo Smyth Hemoglobin (Bld) [Mass/Vol] 11.1 g/dL Critically low 12.0-16.0 [facility] Comment on above: Performed By: #### C BC ####[facility] Gcehrjalyd[address] [place], [place] [address]Dr. Tadeo Smyth IG # 0.01 10e3/ul Normal 0.00-0.03 [facility] Comment on above: Performed By: #### C BC ####[facility] Czeubixkmd9142 [place] [phone]. Tadeo Smyth IG % 0.2 % Normal 0.0-0.5 [facility] Comment on above: Performed By: #### C BC ####[facility] Ugseoecsmi4723 [place] [phone]. Tadeo Smyth LYMPH # 1.5 103/ul Normal 1.2-3.8 [facility] Comment on above: Performed By: #### C BC ####[facility] Sqbbmjjhhk6148 [place] [phone]. Tadeo Smyth Lymphocytes/100 WBC (Bld) 29.9 % Normal 20.5-60.0 [facility] Comment on above: Performed By: #### C BC ####[facility] Xtiuatkkoe9622 [place] [phone]. Tadeo Smyth MANUAL DIFF REQ NO Normal [facility] Comment on above: Performed By: #### C BC ####[facility] Ppegzwihdu9545 [place] [phone]. Tadeo Smyth MCH (RBC) [Entitic mass] 29.3 pg Normal 26.7-34.0 [facility] Comment on above: Performed By: #### C BC ####[facility] Idmyvwissz9003 [place] [phone]. Tadeo Smyth MCHC (RBC) [Mass/Vol] 32.8 g/dL Normal 29.9-35.2 [facility] Comment on above: Performed By: #### C BC ####[facility] Bselke[address]zf[address] [place], [place] [address]Dr. Tadeo Smyth MCV (RBC) [Entitic vol] 89.2 fL Normal 81.0-99.0 [facility] Comment on above: Performed By: #### C BC ####[facility] Sxlwkukgqa7936 [place] [phone]. Tadeo Smyth MONO # 0.4 103/ul Normal 0.3-0.8 [facility] Comment on above: Performed By: #### C BC ####[facility] Mqxhwssrqk9753 [place] [phone]. Tadeo Smyth Monocytes/100 WBC (Bld) 7.8 % Normal 1.7-12.0 [facility] Comment on above: Performed By: #### C BC ####[facility] Bmfuvrqyxt4029 [place] [phone]. Tadeo Smyth NEUT # 2.8 103/ul Normal 1.4-6.5 [facility] Comment on above: Performed By: #### C BC ####[facility] Czuhazzhdh0914 [place] [phone]. Tadeo Smyth Neutrophils/100 WBC (Bld) 57.4 % Normal 43.0-75.0 [facility] Comment on above: Performed By: #### C BC ####[facility] Geygdtbtoe8029 [place] [phone]. Tadeo Smyth Platelet mean volume (Bld) [Entitic vol] 8.9 fL Critically low 9.5-13.5 [facility] Comment on above: Performed By: #### C BC ####[facility] Qpuodmlspd1670 [place] [phone]. Tadeo Smyth PLT 314 103/ul Normal 150-450 [facility] Comment on above: Performed By: #### C BC ####[facility] Uuruxoyycg6992 [place] [phone]. Tadeo Smyth RBC 3.79 106/ul Critically low 4.20-5.40 [facility] Comment on above: Performed By: #### C BC ####[facility] Eapzinuekh3970 [place] [phone]. Tadeo Smyth WBC 4.9 103/ul Normal 4.0-11.0 [facility] Comment on above: Performed By: #### C BC ####[facility] Xsobmsnycm1054 [place] [address]DrNeo Smyth PROF 14(COMP METB)on 022 Albumin [Mass/Vol] 2.8 g/dL Critically low 3.4-5.0 [facility] Comment on above: Performed By: #### C MP ####[facility] Dfiqmdfpws8580 [place] [phone]. Tadeo Smyth Albumin/Globulin [Mass ratio] 0.8 {ratio} Normal [facility] Comment on above: Performed By: #### C MP ####[facility] Yqymvvmqgh0404 [place] [phone]. Tadeo Smyth ALP [Catalytic activity/Vol] 117 U/L Critically high 46-116 [facility] Comment on above: Performed By: #### C MP ####[facility] Fxbsszmxlm1489 [place] [address]Dr. Tadeo Haja ALT [Catalytic activity/Vol] 13 U/L Critically low 14-59 [facility] Comment on above: Performed By: #### C MP ####[facility] Waxvfrvhlf5917 [place] [address]Dr. Margotnicole Smyth Anion gap [Moles/Vol] 8.7 mmol/L Normal [facility] Comment on above: Performed By: #### C MP ####[facility] Nliqtyokwj[address] [place], [place] [address]Dr. Tadeo Smyth AST [Catalytic activity/Vol] 12 U/L Critically low 15-37 [facility] Comment on above: Performed By: #### C MP ####[facility] Xwzjzhafeu04[address] [place], [place] [address]Dr. Tadeo Haja Bilirubin [Mass/Vol] 0.4 mg/dL Normal 0.2-1.0 [facility] Comment on above: Performed By: #### C MP ####[facility] Bffkutbpof0241 [place] [address]Dr. Tadeo Haja Calcium [Mass/Vol] 8.5 mg/dL Normal 8.5-10.1 [facility] Comment on above: Performed By: #### C MP ####[facility] Mtlexxacmr2892 [place] [address]Dr. Tadeo Smyth Chloride [Moles/Vol] 108 mmol/L Critically high 98-107 [facility] Comment on above: Performed By: #### C MP ####[facility] Iqancnjuah9041 [place] [phone]. Tadeo Smyth CO2 [Moles/Vol] 28.0 mmol/L Normal 21.0-32.0 [facility] Comment on above: Performed By: #### C MP ####[facility] Ytfidawttu3501 [place] [phone]. Tadeo Smyth Creatinine [Mass/Vol] 0.74 mg/dL Normal 0.55-1.02 [facility] Comment on above: Performed By: #### C MP ####[facility] Wvrtqwufnw1231 [place] [phone]. Tadeo Smyth EGFR-AF PORTUGUESE >60 Normal >=60 [facility] Comment on above: Performed By: #### C MP ####[facility] Jzrkvfpmzz1483 [place] [address]Dr. Tadeo Haja EGFR-NON AF PORTUGUESE >60 Normal >=60 [facility] Comment on above: Performed By: #### C MP ####[facility] Evxpjarzxb4325[address] [place], [place] [address]Dr. Tadeo Haja Globulin (S) [Mass/Vol] 3.4 g/dL Normal [facility] Comment on above: Performed By: #### C MP ####[facility] Empgtijlst[address] [place], [place] [address]Dr. Tadeo Haja Glucose [Mass/Vol] 107 mg/dL Critically high 74-106 [facility] Comment on above: Performed By: #### C MP ####[facility] Xpktpozclz1318 [place] [address]Dr. Tadeo Smyth Potassium [Moles/Vol] 3.7 mmol/L Normal 3.5-5.1 [facility] Comment on above: Performed By: #### C MP ####[facility] Tvuqirsxro512[address] [place], [place] [address]Dr. Tadeo Haja Protein [Mass/Vol] 6.2 g/dL Critically low 6.4-8.2 [facility] Comment on above: Performed By: #### C MP ####[facility] Dwulgdbexb027[address] [place], [place] [address]Dr. Tadeo Smyth Sodium [Moles/Vol] 141 mmol/L Normal 136-145 [facility] Comment on above: Performed By: #### C MP ####[facility] Zjvcpqgncq8668 [place] [address]Dr. Tadeo Smyth Urea nitrogen [Mass/Vol] 7.0 mg/dL Normal 7.0-18.0 [facility] Comment on above: Performed By: #### C MP ####[facility] Ddpahfjwtw0943[address] [place], [place] [address]Dr. Tadeo Smyth Urea nitrogen/Creatinine [Mass ratio] 9.5 mg/mg Normal [facility] Comment on above: Performed By: #### C MP ####[facility] Npcwnkjpsu0589[address] [place], [place] [address]Dr. Tadeo Smyth XR KUB 1 VIEWon 03-29-2022 XR KUB 1 VIEW Normal [facility] CBC AUTO DIFFon 03-28-2022 BASO # 0.0 103/ul Normal 0.0-0.1 [facility] Comment on above: Performed By: #### C BC ####[facility] Ccsujvoglk49[address] [place], [place] [address]Dr. Tadeo Haja Basophils/100 WBC (Bld) 0.7 % Normal 0.2-2.0 [facility] Comment on above: Performed By: #### C BC ####[facility] Flmvtvvaai266[address] [place], [place] [address]Dr. Tadeo Haja EO # 0.2 103/ul Normal 0.0-0.7 [facility] Comment on above: Performed By: #### C BC ####[facility] Mrivrxpwyf4348[address] [place], [place] [address]Dr. Tadeo Haja Eosinophils/100 WBC (Bld) 3.3 % Normal 0.9-7.0 [facility] Comment on above: Performed By: #### C BC ####[facility] Llefmbwjfz7787[address] [place], [place] [address]Dr. Tadeo Smyth Erythrocyte distribution width (RBC) [Ratio] 13.2 % Normal 11.0-15.0 [facility] Comment on above: Performed By: #### C BC ####[facility] Innlghjzsg3844 [place] [address]Dr. Tadeo Smyth Hematocrit (Bld) [Volume fraction] 34.2 % Critically low 36.0-48.0 [facility] Comment on above: Performed By: #### C BC ####[facility] Oidvxnkrtm5800 [place] [address]DrNeo Tadeo Haja Hemoglobin (Bld) [Mass/Vol] 10.8 g/dL Critically low 12.0-16.0 [facility] Comment on above: Performed By: #### C BC ####[facility] Eswmmsuzfq54[address] [place], [place] [address]DrNeo Smyth IG # 0.01 10e3/ul Normal 0.00-0.03 [facility] Comment on above: Performed By: #### C BC ####[facility] Ctsrkncfqq7[address] [place], [place] [address]Dr. Tadeo Smyth IG % 0.2 % Normal 0.0-0.5 [facility] Comment on above: Performed By: #### C BC ####[facility] Jpnbmskcxj7[address] [place], [place] [address]DrNeo Margotnicole Smyth LYMPH # 1.3 103/ul Normal 1.2-3.8 [facility] Comment on above: Performed By: #### C BC ####[facility] Zuiyvmvoyl78[address] [place], [place] [address]DrNeo Smyth Lymphocytes/100 WBC (Bld) 28.4 % Normal 20.5-60.0 [facility] Comment on above: Performed By: #### C BC ####[facility] Fcxynzxkyq9966[address] [place], [place] [address]DrNeo Smyth MANUAL DIFF REQ NO Normal [facility] Comment on above: Performed By: #### C BC ####[facility] Hbjluvxfha672[address] [place], [place] [address]DrNeo Smyth MCH (RBC) [Entitic mass] 28.3 pg Normal 26.7-34.0 [facility] Comment on above: Performed By: #### C BC ####[facility] Kmigxjiuxr4130 [place] [phone]. Margotnicole Haja MCHC (RBC) [Mass/Vol] 31.6 g/dL Normal 29.9-35.2 [facility] Comment on above: Performed By: #### C BC ####[facility] Hfzdwtzjtw8660 [place] [phone] Smyth MCV (RBC) [Entitic vol] 89.5 fL Normal 81.0-99.0 [facility] Comment on above: Performed By: #### C BC ####[facility] Dkayoidoaz1524 [place] [phone] Smyth MONO # 0.3 103/ul Normal 0.3-0.8 [facility] Comment on above: Performed By: #### C BC ####[facility] Rsakyqtcmk5453 [place] [address]DrNeo Smyth Monocytes/100 WBC (Bld) 5.5 % Normal 1.7-12.0 [facility] Comment on above: Performed By: #### C BC ####[facility] Cdqrzzorns[address] [place], [place] [address]DrNeo Smyth NEUT # 2.8 103/ul Normal 1.4-6.5 [facility] Comment on above: Performed By: #### C BC ####[facility] Tlsrrjtdpk3372 [place] [phone] Smyth Neutrophils/100 WBC (Bld) 61.9 % Normal 43.0-75.0 [facility] Comment on above: Performed By: #### C BC ####[facility] Ioskqcjzyo0937 [place] [phone] Smyth Platelet mean volume (Bld) [Entitic vol] 9.1 fL Critically low 9.5-13.5 [facility] Comment on above: Performed By: #### C BC ####[facility] Ebttxpsttt6975 [place] [phone] Smyth PLT 327 103/ul Normal 150-450 [facility] Comment on above: Performed By: #### C BC ####[facility] Fsimnvlgey8247 [place] [phone]. Tadeo Smyth RBC 3.82 106/ul Critically low 4.20-5.40 [facility] Comment on above: Performed By: #### C BC ####[facility] Kldqcuzkkx5084 [place] [phone]. Tadeo Smyth WBC 4.5 103/ul Normal 4.0-11.0 [facility] Comment on above: Performed By: #### C BC ####[facility] Uqzlinysvm1123 [place] [address]Dr. Tadeo Smyth POINT OF CARE GLUCOSEon 03-06 Glucose [Mass/Vol] 84 mg/dL Normal 74-106 [facility] Comment on above: Performed By: #### P OCGLUC ####[facility] Cebzxsktjn9338 [place] [address]DrNeo Smyth PROF 14(COMP METB)on 022 Albumin [Mass/Vol] 2.9 g/dL Critically low 3.4-5.0 [facility] Comment on above: Performed By: #### C MP ####[facility] Moqfvfkygn16[address] [place] [address]Dr. Tadeo Smyth Albumin/Globulin [Mass ratio] 0.9 {ratio} Normal [facility] Comment on above: Performed By: #### C MP ####[facility] Npubjjcbww6028 [place] [address]Dr. Tadeo Smyth ALP [Catalytic activity/Vol] 119 U/L Critically high 46-116 [facility] Comment on above: Performed By: #### C MP ####[facility] Qlqbbkpsni6996 [place] [address]Dr. Tadeo Smyth ALT [Catalytic activity/Vol] 15 U/L Normal 14-59 [facility] Comment on above: Performed By: #### C MP ####[facility] Qqdxdzoqdp8887 [place] [address]Dr. Tadeo Smyth Anion gap [Moles/Vol] 7.9 mmol/L Normal [facility] Comment on above: Performed By: #### C MP ####[facility] Pmrwiafabx1225 [place] [address]Dr. Tadeo Smyth AST [Catalytic activity/Vol] 11 U/L Critically low 15-37 [facility] Comment on above: Performed By: #### C MP ####[facility] Pirwyooypl0455 [place] [address]Dr. Tadeo Smyth Bilirubin [Mass/Vol] 0.4 mg/dL Normal 0.2-1.0 [facility] Comment on above: Performed By: #### C MP ####[facility] Rcrrcinfdc[address] [place], [place] [address]Dr. Tadeo Smyth Calcium [Mass/Vol] 8.7 mg/dL Normal 8.5-10.1 [facility] Comment on above: Performed By: #### C MP ####[facility] Pdxmftwsgb6[address] [place], [place] [address]Dr. Tadeo Smyth Chloride [Moles/Vol] 109 mmol/L Critically high 98-107 [facility] Comment on above: Performed By: #### C MP ####[facility] Gmixnchkht5[address] [place], [place] [address]Dr. Tadeo Smyth CO2 [Moles/Vol] 27.9 mmol/L Normal 21.0-32.0 [facility] Comment on above: Performed By: #### C MP ####[facility] Ftipqdkipm6974[address] [place], [place] [address]Dr. Tadeo Smyth Creatinine [Mass/Vol] 0.75 mg/dL Normal 0.55-1.02 [facility] Comment on above: Performed By: #### C MP ####[facility] Snvmttvmod060[address] [place], [place] [address]Dr. Margotnicole Haja EGFR-AF PORTUGUESE >60 Normal >=60 [facility] Comment on above: Performed By: #### C MP ####[facility] Cbvmmncvjn1927[address] [place], [place] [address]Dr. Tadeo Smyth EGFR-NON AF PORTUGUESE >60 Normal >=60 [facility] Comment on above: Performed By: #### C MP ####[facility] Dtykvqasio5681 [place] [address]Dr. Margotnicole Haja Globulin (S) [Mass/Vol] 3.3 g/dL Normal [facility] Comment on above: Performed By: #### C MP ####[facility] Sezigidgym1879 [place] [address]Dr. Tadeo Smyth Glucose [Mass/Vol] 95 mg/dL Normal 74-106 [facility] Comment on above: Performed By: #### C MP ####[facility] Ajfyjszjih0[address] [place], [place] [address]Dr. Tadeo Smyth Potassium [Moles/Vol] 3.8 mmol/L Normal 3.5-5.1 [facility] Comment on above: Performed By: #### C MP ####[facility] Aeelotpwqt1391[address] [place], [place] [address]Dr. Tadeo Smyth Protein [Mass/Vol] 6.2 g/dL Critically low 6.4-8.2 [facility] Comment on above: Performed By: #### C MP ####[facility] Igzuvruela[address] [place], [place] [address]Dr. Tadeo Smyth Sodium [Moles/Vol] 141 mmol/L Normal 136-145 [facility] Comment on above: Performed By: #### C MP ####[facility] Ltyltwiqbe278[address] [place], [place] [address]Dr. Tadeo Smyth Urea nitrogen [Mass/Vol] 8.0 mg/dL Normal 7.0-18.0 [facility] Comment on above: Performed By: #### C MP ####[facility] Xfdedbwioj2946[address] [place], [place] [address]Dr. Tadeo Smyth Urea nitrogen/Creatinine [Mass ratio] 10.7 mg/mg Normal [facility] Comment on above: Performed By: #### C MP ####[facility] Rrummsskhn9138[address] [place], [place] [address]Dr. Tadeo Smyth UA (CLEAN/CATCH) ROAD MARKER/MICRO I F IND.on 03-28-2022 Bilirubin Ql (U) Negative Normal NEGATIVE [facility] Comment on above: Performed By: #### U ACSBLANE, UMICRO ####[facility] Cfcvhtjtye7939 [place] [address]Dr. Tadeo Smyth Clarity (U) SL CLOUDY Abnormal CLEAR [facility] Comment on above: Performed By: #### U ACSBLANE, UMICRO ####[facility] Eagqcihhnq1860 [place] [address]Dr. Tadeo Smyth Color (U) LT. YELLOW Normal YELLOW [facility] Comment on above: Performed By: #### U ACSBLANE, UMICRO ####[facility] Zhfqxlhyum5551 [place] [address]Dr. Tadeo Smyth Glucose Ql (U) Negative Normal NEGATIVE [facility] Comment on above: Performed By: #### U ACSBLANE, UMICRO ####[facility] Hmwkfakxmf5242 [place] [address]Dr. Tadeo Smyth Hemoglobin Ql (U) TRACE-INTACT Abnormal NEGATIVE [facility] Comment on above: Performed By: #### U ACSBLANE, UMICRO ####[facility] Uskabanemf4167 [place] [address]Dr. Tadeo Smyth Ketones Ql (U) TRACE Abnormal NEGATIVE [facility] Comment on above: Performed By: #### U ACSBLANE UMICRO ####[facility] Wlquwatqnx0608 [place] [address]Dr. Tadeo Smyth LEUKOCYTES Negative Normal NEGATIVE [facility] Comment on above: Performed By: #### U ACSBLANE UMICRO ####[facility] Podfhvrdpz27[address] [place], [place] [address]Dr. Tadeo Smyth Nitrite Ql (U) Negative Normal NEGATIVE [facility] Comment on above: Performed By: #### U ACSBLANE ICRO ####[facility] Tveqemvclx4715[address] [place], [place] [address]Dr. Tadeo Smyth pH (U) 6.5 [pH] Normal 5-9 [facility] Comment on above: Performed By: #### U ACSBLANE UMICRO ####[facility] Ivslvjxocg7[address] [place], [place] [address]Dr. Tadeo Smyth SPEC GRAVITY 1.015 Normal 1.005-<=1.0 25 [facility] Comment on above: Performed By: #### U RANDI GARVEYICRO ####[facility] Gpwhnvupxo2633 [place] [address]Dr. Tadeo Smyth UA PROTEIN Negative Normal NEGATIVE/ TRACE [facility] Comment on above: Performed By: #### U RANDI GARVEYICRO ####[facility] Roskwktazc6848 [place] [address]Dr. Tadeo Smyth UR MICRO IND INDICATED Normal [facility] Comment on above: Performed By: #### U RANDI GARVEYICRO ####[facility] Zsvmrqqywq013[address] [place], [place] [address]Dr. Tadeo Smyth Urobilinogen Qn (U) 0.2 {Benito'U}/dL Normal 0.2 - 1. 0 [facility] Comment on above: Performed By: #### RANDI CARMICHAELICRO ####[facility] Bqepllyypf45[address] [place], [place] [address]Dr. Tadeo Smyth URINE MICROSCOPIC ONLYon BACTERIA MODERATE Abnormal NONE SEEN [facility] Comment on above: Performed By: #### RANDI CARMICHAELICRO ####[facility] Ocvbfugztw2814[address] [place], [place] [address]Dr. Tadeo Smyth Bacteria identified Cx Nom (U) INDICATED Normal [facility] Comment on above: Performed By: #### U RANDI GARVEYICRO ####[facility] Rjfohkdild3215 [place] [address]Dr. Tadeo Smyth CAST NONE SEEN Normal NONE SEEN [facility] Comment on above: Performed By: #### U MARE UMICRO ####[facility] Etswmjkqlf1526[address] [place], [place] [address]Dr. Tadeo Smyth Crystals LM Nom (Urine sed) NONE SEEN Normal NONE SEEN [facility] Comment on above: Performed By: #### U MARE UMICRO ####[facility] Gojkpeaorv5488[address] [place], [place] [address]Dr. Tadeo Smyth Epithelial cells LM Ql (Urine sed) RARE Normal NONE SEEN /RARE [facility] Comment on above: Performed By: #### U MARE UMICRO ####[facility] Fwmgkwxynw9435 [place] [address]Dr. Tadeo Smyth MUCOUS NONE SEEN Normal NONE SEEN [facility] Comment on above: Performed By: #### U ACSBLANE UMICRO ####[facility] Nkaovrsrax1828 [place] [address]Dr. Tadeo Smyth RBC NONE SEEN Abnormal 0-2 [facility] Comment on above: Performed By: #### U MARE ICRO ####[facility] Borwplxzrg2817 [place] [address]Dr. Margotnicole Smyth WBC 2-5 Abnormal NONE SEEN [facility] Comment on above: Performed By: #### U MARE ICRO ####[facility] Cbonqgarpd3655[address] [place], [place] [address]Dr. Tadeo Haja XR ABD FLAT UP_PA Kasey 03-28 XR ABD FLAT UP_PA CH Normal [facility] CBC AUTO DIFFon 03-27-2022 BASO # 0.0 103/ul Normal 0.0-0.1 [facility] Comment on above: Performed By: #### C BC ####[facility] Klyvrbnvql[address] [place], [place] [address]Dr. Tadeo Smyth Basophils/100 WBC (Bld) 0.5 % Normal 0.2-2.0 [facility] Comment on above: Performed By: #### C BC ####[facility] Yzlvqlubdr3843 [place] [address]Dr. Margotnicole Smyth EO # 0.2 103/ul Normal 0.0-0.7 [facility] Comment on above: Performed By: #### C BC ####[facility] Ajijkyzlsy8298 [place] [address]Dr. Margotnicole Haja Eosinophils/100 WBC (Bld) 3.2 % Normal 0.9-7.0 [facility] Comment on above: Performed By: #### C BC ####[facility] Lifipdxumf7731[address] [place], [place] [address]Dr. Tadeo Smyth Erythrocyte distribution width (RBC) [Ratio] 13.1 % Normal 11.0-15.0 [facility] Comment on above: Performed By: #### C BC ####[facility] Pvmcsahdpj3464 [place] [address]Dr. Tadeo Smyth Hematocrit (Bld) [Volume fraction] 34.8 % Critically low 36.0-48.0 [facility] Comment on above: Performed By: #### C BC ####[facility] Cottujuxgb[address] [place], [place] [address]Dr. Tadeo Smyth Hemoglobin (Bld) [Mass/Vol] 11.3 g/dL Critically low 12.0-16.0 [facility] Comment on above: Performed By: #### C BC ####[facility] Hrnhytcbgu4[address] [place], [place] [address]Dr. Tadeo Haja IG # 0.01 10e3/ul Normal 0.00-0.03 [facility] Comment on above: Performed By: #### C BC ####[facility] Edmjesztrh6197[address] [place], [place] [address]Dr. Tadeo Haja IG % 0.2 % Normal 0.0-0.5 [facility] Comment on above: Performed By: #### C BC ####[facility] Vlonjjcbbr238[address] [place], [place] [address]Dr. Tadeo Haja LYMPH # 1.6 103/ul Normal 1.2-3.8 [facility] Comment on above: Performed By: #### C BC ####[facility] Inyottirgz6479[address] [place], [place] [address]Dr. Margotnicole Smyth Lymphocytes/100 WBC (Bld) 29.1 % Normal 20.5-60.0 [facility] Comment on above: Performed By: #### C BC ####[facility] Iaiuikdwty7046[address] [place], [place] [address]Dr. Margotnicole Smyth MANUAL DIFF REQ NO Normal [facility] Comment on above: Performed By: #### C BC ####[facility] Kasdruheve59[address] [place], [place] [address]Dr. Tadeo Smyth MCH (RBC) [Entitic mass] 29.1 pg Normal 26.7-34.0 [facility] Comment on above: Performed By: #### C BC ####[facility] Zwbhazbxoo0265 [place] [address]Dr. Tadeo Smyth MCHC (RBC) [Mass/Vol] 32.5 g/dL Normal 29.9-35.2 [facility] Comment on above: Performed By: #### C BC ####[facility] Tdsdvykron9953 [place] [address]Dr. Tadeo Smyth MCV (RBC) [Entitic vol] 89.7 fL Normal 81.0-99.0 [facility] Comment on above: Performed By: #### C BC ####[facility] Aihksbmklj1659 [place] [address]Dr. Tadeo Haja MONO # 0.3 103/ul Normal 0.3-0.8 [facility] Comment on above: Performed By: #### C BC ####[facility] Xgbbjhezlt9770 [place] [address]Dr. Tadeo Haja Monocytes/100 WBC (Bld) 5.7 % Normal 1.7-12.0 [facility] Comment on above: Performed By: #### C BC ####[facility] Zgwrmcokxj9715 [place] [address]Dr. Tadeo Smyth NEUT # 3.5 103/ul Normal 1.4-6.5 [facility] Comment on above: Performed By: #### C BC ####[facility] Yxlamvikch6821[address] [place], [place] [address]Dr. Tadeo Haja Neutrophils/100 WBC (Bld) 61.3 % Normal 43.0-75.0 [facility] Comment on above: Performed By: #### C BC ####[facility] Bwpmdnptun3259 [place] [address]Dr. Tadeo Smyht Platelet mean volume (Bld) [Entitic vol] 9.1 fL Critically low 9.5-13.5 [facility] Comment on above: Performed By: #### C BC ####[facility] Bcuzlqhefu2346 [place], [place] [address]Jl. Tadeo Smyth PLT 355 103/ul Normal 150-450 [facility] Comment on above: Performed By: #### C BC ####[facility] Gzbahnigwa8647 [place], [place] [address]Hy. Tadeo Smyth RBC 3.88 106/ul Critically low 4.20-5.40 [facility] Comment on above: Performed By: #### C BC ####[facility] Ygwhuaeilg5346 [place], [place] [address]Ft. Tadeo Smyth WBC 5.6 103/ul Normal 4.0-11.0 [facility] Comment on above: Performed By: #### C BC ####[facility] Fglgjndwpx3303 [place], [place] [address]Ou. Tadeo Smyth CT ABD/PELV W CONon 03-27-20 CT ABD/PELV W CON Normal [facility] CT ABD/PELVIS WO CONon 03-27 CT ABD/PELVIS WO CON Normal [facility]on [facility]-06 SARS-CoV-2 (COVID-19) RNA CHEN+probe Ql (Unsp spec) Not detected Normal NOT DETECTED [facility] Comment on above: Result Comment: When [...] for this test is supported by the [employer] Commissioner of Health and Human Service's declaration that [...] be used). Performed By: #### C VDTBH ####[facility] Aqtgepshth5626[address] [place], [place] [address]Dr. Tadeo Smyth ER URINE PROFILEon 2 Bilirubin Ql (U) Negative Normal NEGATIVE [facility] Comment on above: Performed By: #### E RUR, PREGU ####[facility] Ypjxgcilxe9759[address] [place], [place] [address]Dr. Margotnicole Smyth Clarity (U) CLEAR Normal CLEAR [facility] Comment on above: Performed By: #### E RUR, PREGU ####[facility] Svhabkzxkx1273[address] [place], [place] [address]Dr. Tadeo Smyth Color (U) LT. YELLOW Normal YELLOW [facility] Comment on above: Performed By: #### E RUR, PREGU ####[facility] Arqonvclnb023[address] [place], [place] [address]Dr. Tadeo Smyth ERUAHD A micrscopic examina tion will be performed if indicated. Normal [facility] Comment on above: Performed By: #### E RUR, PREGU ####[facility] Bvjlfzxngp416[address] [place], [place] [address]Dr. Tadeo Smyth Glucose Ql (U) Negative Normal NEGATIVE [facility] Comment on above: Performed By: #### E RUR, PREGU ####[facility] Wiegihtkqm7126[address] [place], [place] [address]Dr. Tadeo Smyth Hemoglobin Ql (U) SMALL Abnormal NEGATIVE [facility] Comment on above: Performed By: #### E RUR, PREGU ####[facility] Ngmivtrdod5047[address] [place], [place] [address]Dr. Tadeo Smyth Ketones Ql (U) TRACE Abnormal NEGATIVE [facility] Comment on above: Performed By: #### E RUR, PREGU ####[facility] Gigmsrxgun1408[address] [place], [place] [address]Dr. Tadeo Smyth LEUKOCYTES Negative Normal NEGATIVE [facility] Comment on above: Performed By: #### E RUR, PREGU ####[facility] Vyjjjgvpoh8357[address] [place], [place] [address]Dr. Tadeo Smyth Nitrite Ql (U) Negative Normal NEGATIVE [facility] Comment on above: Performed By: #### E RUR, PREGU ####[facility] Zxomarukdi1667 [place] [address]Dr. Tadeo Smyth pH (U) 6.0 [pH] Normal 5-9 [facility] Comment on above: Performed By: #### E RUR, PREGU ####[facility] Ikyakvshsn28[address] [place], [place] [address]Dr. Tadeo Smyth SPEC GRAVITY >=1.030 Abnormal 1.005-<=1.0 25 [facility] Comment on above: Performed By: #### Matthew RUR, PREGU ####[facility] Ysclciovpa[address] [place], [place] [address]Dr. Tadeo Smyth UA PROTEIN Negative Normal NEGATIVE/ TRACE [facility] Comment on above: Performed By: #### Matthew RUR, PREGU ####[facility] Teaebkirxg6399[address] [place], [place] [address]Dr. Tadeo Smyth UR MICRO IND NOT INDICATED Normal [facility] Comment on above: Performed By: #### Matthew RUR, PREGU ####[facility] Ojkheibqso4532[address] [place], [place] [address]Dr. Tadeo Smyth Urobilinogen Qn (U) 0.2 {Benito'U}/dL Normal 0.2 - 1. 0 [facility] Comment on above: Performed By: #### E RUR, PREGU ####[facility] Emauobhcso9[address] [place], [place] [address]Dr. Tadeo Smyth LIPASEon 03-27-2022 Lipase [Catalytic activity/Vol] 126.0 U/L Normal 73.0-393.0 [facility] Comment on above: Performed By: #### L IPA, CMP ####[facility] Jhayifobma9427[address] [place], [place] [address]Dr. Tadeo Smyth URon 03-27-2022 , QUAL Negative Normal NEGATIVE [facility] Comment on above: Performed By: #### E RUR, PREGU ####[facility] Jxavygczuc5653 [place] [address]Dr. Tadeo Smyth PROF 14(COMP METB)on 022 Albumin [Mass/Vol] 3.6 g/dL Normal 3.4-5.0 [facility] Comment on above: Performed By: #### L IPA, CMP ####[facility] Oqtyshaydv4169 [place] [address]Dr. Tadeo Smyth Albumin/Globulin [Mass ratio] 1.1 {ratio} Normal [facility] Comment on above: Performed By: #### L IPA, CMP ####[facility] Fazarkcgvw3061 [place] [address]Dr. Tadeo Smyth ALP [Catalytic activity/Vol] 139 U/L Critically high 46-116 [facility] Comment on above: Performed By: #### L IPA, CMP ####[facility] Etbejdwtxl8360 [place] [address]Dr. Tadeo Smyth ALT [Catalytic activity/Vol] 18 U/L Normal 14-59 [facility] Comment on above: Performed By: #### L IPA, CMP ####[facility] Rmgbrjhzto6099 [place] [address]Dr. Tadeo Smyth Anion gap [Moles/Vol] 10.7 mmol/L Normal [facility] Comment on above: Performed By: #### L IPA, CMP ####[facility] Fggbwjgtgb2848 [place] [address]Dr. Tadeo Smyth AST [Catalytic activity/Vol] 11 U/L Critically low 15-37 [facility] Comment on above: Performed By: #### L IPA, CMP ####[facility] Iluotocnji3[address] [place], [place] [address]Dr. Tadeo Smyth Bilirubin [Mass/Vol] 0.2 mg/dL Normal 0.2-1.0 [facility] Comment on above: Performed By: #### L IPA, CMP ####[facility] Jcavxopdii[address] [place], [place] [address]Dr. Tadeo Smyth Calcium [Mass/Vol] 9.0 mg/dL Normal 8.5-10.1 [facility] Comment on above: Performed By: #### L IPA, CMP ####[facility] Jnrdaeyldk0607 [place] [address]Dr. Tadeo Smyth Chloride [Moles/Vol] 106 mmol/L Normal 98-107 [facility] Comment on above: Performed By: #### L IPA, CMP ####[facility] Kqzluvzttz0491 [place] [address]Dr. Tadeo Smyth CO2 [Moles/Vol] 26.9 mmol/L Normal 21.0-32.0 [facility] Comment on above: Performed By: #### L IPA, CMP ####[facility] Fzaeuvmjpe68[address] [place], [place] [address]Dr. Tadeo Smyth Creatinine [Mass/Vol] 0.84 mg/dL Normal 0.55-1.02 [facility] Comment on above: Performed By: #### L IPA, CMP ####[facility] Sxlcgfkmlk3761[address] [place], [place] [address]Dr. Tadeo Smyth EGFR-AF PORTUGUESE >60 Normal >=60 [facility] Comment on above: Performed By: #### L IPA, CMP ####[facility] Itotsiapbx1728[address] [place], [place] [address]Dr. Tadeo Smyth EGFR-NON AF PORTUGUESE >60 Normal >=60 [facility] Comment on above: Performed By: #### L IPA, CMP ####[facility] Rkjjqgxjzd7148[address] [place], [place] [address]Dr. Tadeo Smyth Globulin (S) [Mass/Vol] 3.4 g/dL Normal [facility] Comment on above: Performed By: #### L IPA, CMP ####[facility] Npywbbfbyl5332[address] [place], [place] [address]Dr. Tadeo Smyth Glucose [Mass/Vol] 96 mg/dL Normal 74-106 [facility] Comment on above: Performed By: #### L IPA, CMP ####[facility] Spvuhmngiv8829[address] [place], [place] [address]Dr. Tadeo Smyth Potassium [Moles/Vol] 3.6 mmol/L Normal 3.5-5.1 [facility] Comment on above: Performed By: #### L IPA, CMP ####[facility] Nzsayqayxh3285 [place] [address]Dr. Tadeo Smyth Protein [Mass/Vol] 7.0 g/dL Normal 6.4-8.2 [facility] Comment on above: Performed By: #### L IPA, CMP ####[facility] Nwfmuvyoog1977[address] [place], [place] [address]Dr. Tadeo Smyth Sodium [Moles/Vol] 140 mmol/L Normal 136-145 [facility] Comment on above: Performed By: #### L IPA, CMP ####[facility] Dqazhxgshb[address] [place], [place] [address]Dr. Tadeo Smyth Urea nitrogen [Mass/Vol] 23.0 mg/dL Critically high 7.0-18.0 [facility] Comment on above: Performed By: #### L IPA, CMP ####[facility] Bdtjxwrhbx788[address] [place], [place] [address]Dr. Tadeo Smyth Urea nitrogen/Creatinine [Mass ratio] 27.4 mg/mg Normal [facility] Comment on above: Performed By: #### L IPA, CMP ####[facility] Mfxmfxsctd6449[address] [place], [place] [address]Dr. Tadeo Haja GROUP A STREP CULTUREon S. pyogenes Ag Ql (Unsp spec) Normal [facility] Comment on above: Performed By: #### G RASTCX, SSCRN ####[facility] Yqmsnlmgxc7[address] [place], [place] [address]Dr. Tadeo Haja AMYLASEon 02-02-2022 Amylase [Catalytic activity/Vol] 37 U/L Normal 25-115 [facility] Comment on above: Performed By: #### C MP, VIJI, LIPA ####[facility] Ygxduttglg8324[address] [place], [place] [address]Dr. Tadeo Smyth CBC AUTO DIFFon 02-02-2022 BASO # 0.0 103/ul Normal 0.0-0.1 [facility] Comment on above: Performed By: #### C BC ####[facility] Enbsrdygda69[address] [place], [place] [address]Dr. Tadeo Smyth Basophils/100 WBC (Bld) 0.2 % Normal 0.2-2.0 [facility] Comment on above: Performed By: #### C BC ####[facility] Oneibjfwfi3601 [place] [address]Dr. Tadeo Smyth EO # 0.0 103/ul Normal 0.0-0.7 [facility] Comment on above: Performed By: #### C BC ####[facility] Zgmzdprhhq4060 [place] [address]Dr. Tadeo Smyth Eosinophils/100 WBC (Bld) 0.2 % Critically low 0.9-7.0 [facility] Comment on above: Performed By: #### C BC ####[facility] Rvmdxuryif13[address] [place], [place] [address]Dr. Tadeo Smyth Erythrocyte distribution width (RBC) [Ratio] 13.4 % Normal 11.0-15.0 [facility] Comment on above: Performed By: #### C BC ####[facility] Mouulavlqm[address] [address] [place], [place] [address]Dr. Tadeo Smyth Hematocrit (Bld) [Volume fraction] 36.8 % Normal 36.0-48.0 [facility] Comment on above: Performed By: #### C BC ####[facility] Yuot[address]ec[address] [place], [place] [address]Dr. Tadeo Smyth Hemoglobin (Bld) [Mass/Vol] 11.6 g/dL Critically low 12.0-16.0 [facility] Comment on above: Performed By: #### C BC ####[facility] Qwtafg[address] [place], [place] [address]Dr. Tadeo Smyth IG # 0.08 10e3/ul Critically high 0.00-0.03 [facility] Comment on above: Performed By: #### C BC ####[facility] U[address]arn[address] [place], [place] [address]Dr. Tadeo Smyth IG % 0.6 % Critically high 0.0-0.5 [facility] Comment on above: Performed By: #### C BC ####[facility] Ftibmxxiim[address] [place] [phone]. Tadeo Haja LYMPH # 0.9 103/ul Critically low 1.2-3.8 The [facility] Comment on above: Performed By: #### C BC ####[facility] Kilepnhxgd9[address] [place] [phone]. Tadeo Haja Lymphocytes/100 WBC (Bld) 6.9 % Critically low 20.5-60.0 [facility] Comment on above: Performed By: #### C BC ####[facility] Vfrkawdhxc[address]896 [place] [phone]. Margotnicole Smyth MANUAL DIFF REQ NO Normal [facility] Comment on above: Performed By: #### C BC ####[facility] Ambvwifafd[address] [place] [address]Dr. Tadeo Haja MCH (RBC) [Entitic mass] 28.9 pg Normal 26.7-34.0 [facility] Comment on above: Performed By: #### C BC ####[facility] Srecbebzbl[address]84 [place] [address]Dr. Tadeo Haja MCHC (RBC) [Mass/Vol] 31.5 g/dL Normal 29.9-35.2 [facility] Comment on above: Performed By: #### C BC ####[facility] Nextelsmae[address] [place] [phone]. Tadeo Haja MCV (RBC) [Entitic vol] 91.8 fL Normal 81.0-99.0 [facility] Comment on above: Performed By: #### C BC ####[facility] Pnvydhpgcq4[address] [place] [phone]. Tadeo Haja MONO # 0.9 103/ul Critically high 0.3-0.8 [facility] Comment on above: Performed By: #### C BC ####[facility] Obsyhukfpg86[address] [place] [phone]. Margotnicole Smyth Monocytes/100 WBC (Bld) 6.9 % Normal 1.7-12.0 [facility] Comment on above: Performed By: #### C BC ####[facility] Lm[address]mm[address] [place], [place] [address]Vw. Tadeo Smyth NEUT # 11.6 103/ul Critically high 1.4-6.5 The [facility] Comment on above: Performed By: #### C BC ####[facility] Timpqzgjcb1439 [place], [place] [address]Lw. Tadeo Smyth Neutrophils/100 WBC (Bld) 85.2 % Critically high 43.0-75.0 [facility] Comment on above: Performed By: #### C BC ####[facility] Fqnkhfseyv5164 [place], [place] [address]Dy. Tadeo Smyth Platelet mean volume (Bld) [Entitic vol] 8.9 fL Critically low 9.5-13.5 [facility] Comment on above: Performed By: #### C BC ####[facility] Jscfnplgdn5351 [place], [place] [address]Oj. Tadeo Smyth PLT 331 103/ul Normal 150-450 [facility] Comment on above: Performed By: #### C BC ####[facility] Nbopptouqv7864 [place], [place] [address]Jm. Tadeo Smyth RBC 4.01 106/ul Critically low 4.20-5.40 [facility] Comment on above: Performed By: #### C BC ####[facility] Pugjplmfnt[address] [place], [place] [address]Vi. Tadeo Smyth WBC 13.7 103/ul Critically high 4.0-11.0 [facility] Comment on above: Performed By: #### C BC ####[facility] Sdtqafsjfu[address] [place] [phone]. Tadeo Smyth [facility]05 SARS-CoV-2 (COVID-19) RNA CHEN+probe Ql (Unsp spec) Not detected Normal NOT DETECTED [facility] Comment on above: Result Comment: When [...] for this test is supported by the [place] of Health and Human Service's declaration that [...] be used). Performed By: #### C VDTBH ####[facility] Mkjmxwoxyk14[address] [place] [address]Dr. Tadeo Smyth LIPASEon 02-02-2022 Lipase [Catalytic activity/Vol] 33.0 U/L Critically low 73.0-393.0 [facility] Comment on above: Performed By: #### C VIJI GARCIA LIPA ####[facility] Duobgrrfin[address] [place] [address]Dr. Margotnicole Smyth MONOon 02-02-2022 Monocytes (Bld) [#/Vol] Negative Normal NEGATIVE [facility] Comment on above: Performed By: #### M JESSICA ####[facility] Yawwdvuiof[address] [place] [address]Dr. Margotnicole Smyth PROF 14(COMP METB)on 022 Albumin [Mass/Vol] 3.1 g/dL Critically low 3.4-5.0 [facility] Comment on above: Performed By: #### C VIJI GARCIA LIPA ####[facility] Knclnsgekx[address] [place] [address]Dr. Margotnicole Smyth Albumin/Globulin [Mass ratio] 0.9 {ratio} Normal [facility] Comment on above: Performed By: #### C VIJI GARCIA LIPA ####[facility] Fnvebyodsg[address] [place] [address]Dr. Tadeo Smyth ALP [Catalytic activity/Vol] 131 U/L Critically high 46-116 [facility] Comment on above: Performed By: #### C VIJI GARCIA LIPA ####[facility] Zbowsbtymh3761 [place] [address]Dr. Tadeo Smyth ALT [Catalytic activity/Vol] 25 U/L Normal 14-59 [facility] Comment on above: Performed By: #### C MP, VIJI, LIPA ####[facility] Kbktotmpbm7227 [place] [address]Dr. Tadeo Smyth Anion gap [Moles/Vol] 10.0 mmol/L Normal [facility] Comment on above: Performed By: #### C MP, VIJI, LIPA ####[facility] Vddxqpsswc2507 [place] [address]Dr. Tadeo Smyth AST [Catalytic activity/Vol] 19 U/L Normal 15-37 [facility] Comment on above: Performed By: #### C MP, VIJI, LIPA ####[facility] Mipoqfqtor[address] [place], [place] [address]Dr. Tadeo Smyth Bilirubin [Mass/Vol] 0.6 mg/dL Normal 0.2-1.0 [facility] Comment on above: Performed By: #### C MP, VIJI, LIPA ####[facility] Qljusfpmvs[address] [place], [place] [address]Dr. Tadeo Smyth Calcium [Mass/Vol] 8.2 mg/dL Critically low 8.5-10.1 [facility] Comment on above: Performed By: #### C MP, VIJI, LIPA ####[facility] Jdtnwntzbo[address] [place], [place] [address]Dr. Tadeo Smyth Chloride [Moles/Vol] 106 mmol/L Normal 98-107 [facility] Comment on above: Performed By: #### C MP, VIJI, LIPA ####[facility] Frkuupfwtg[address] [place], [place] [address]Dr. Tadeo Smyth CO2 [Moles/Vol] 25.5 mmol/L Normal 21.0-32.0 [facility] Comment on above: Performed By: #### C MP, VIJI, LIPA ####[facility] Nrbgduwrsk[address] [place], [place] [address]Dr. Tadeo Smyth Creatinine [Mass/Vol] 0.78 mg/dL Normal 0.55-1.02 [facility] Comment on above: Performed By: #### C VIJI GARCIA, LIPA ####[facility] Qcyrwryhsr[address] [place] [address]Dr. Tadeo Smyth EGFR-AF PORTUGUESE >60 Normal >=60 [facility] Comment on above: Performed By: #### C MP VIJI, LIPA ####[facility] Hvkmqvtjzr1341 [place] [address]Dr. Tadeo Smyth EGFR-NON AF PORTUGUESE >60 Normal >=60 [facility] Comment on above: Performed By: #### C VIJI GARCIA, LIPA ####[facility] Hjruylpmtz4739 [place] [address]Dr. Tadeo Smyth Globulin (S) [Mass/Vol] 3.6 g/dL Normal [facility] Comment on above: Performed By: #### C JOSE VIJI, LIPA ####[facility] Ioeyknakup[address] [place] [address]Dr. Tadeo Smyth Glucose [Mass/Vol] 110 mg/dL Critically high 74-106 [facility] Comment on above: Performed By: #### C VIJI GARCIA, LIPA ####[facility] Uriiejrywb6010 [place] [address]Dr. Tadeo Smyth Potassium [Moles/Vol] 3.5 mmol/L Normal 3.5-5.1 [facility] Comment on above: Performed By: #### C MP VIJI, LIPA ####[facility] Kqziyfgqci[address] [place] [address]Dr. Tadeo Smyth Protein [Mass/Vol] 6.7 g/dL Normal 6.4-8.2 [facility] Comment on above: Performed By: #### C MP VIJI, LIPA ####[facility] Qxtrxdyvpo1919 [place] [address]Dr. Tadeo Smyth Sodium [Moles/Vol] 138 mmol/L Normal 136-145 [facility] Comment on above: Performed By: #### C MP VIJI, LIPA ####[facility] [address]pms[address]ua[address]387 [place], [place] [address]Hl. Tadeo Smyth Urea nitrogen [Mass/Vol] 11.0 mg/dL Normal 7.0-18.0 [facility] Comment on above: Performed By: #### C JOSE, VIJI, LIPA ####[facility] [address]of[address]ij[address] [place], [place] [address]Lf. Tadeo Smyth Urea nitrogen/Creatinine [Mass ratio] 14.1 mg/mg Normal [facility] Comment on above: Performed By: #### C JOSE, VIJI, LIPA ####[facility] [address]wdkvtlr75[address] [place], [place] [address]Up. Tadeo Smyth STREPT SCREENon 02-02-2022 STREP SCREEN A Negative Normal NEGATIVE [facility] Comment on above: Performed By: #### G RASTCX, SSCRN ####[facility] [address]nr[address] [place], [place] [address]St. Tadeo Smyth BASIC METABOLIC PANELon 08-05 Calcium [Mass/Vol] 8.4 mg/dL Low 8.6-10.3 [facility] Comment on above: Order Comment: No: D o not add to previous draw Performed By: #### 3 6901, 77540 #### [facility] [address] [place] [address], [place] Chloride [Moles/Vol] 108 mmol/L High 98-107 [facility] Comment on above: Order Comment: No: D o not add to previous draw Performed By: #### 3 6901, 33117 #### [facility] [address] [place] [address], [place] CO2 [Moles/Vol] 26 mmol/L Normal 21-31 [facility] Comment on above: Order Comment: No: D o not add to previous draw Performed By: #### 3 6901, 48185 #### [facility] [address] [place] [address], [place] Creatinine [Mass/Vol] 0.79 mg/dL Normal 0.60-1.20 [facility] Comment on above: Order Comment: No: D o not add to previous draw Performed By: #### 3 367, 54879 #### [facility] [address] [place] [address], [place] GFR/1.73 sq M predicted among blacks MDRD (S/P/Bld) [Vol rate/Area] mL/min/{1.73_m2} Normal >60 [facility] Comment on above: Order Comment: No: D o not add to previous draw Performed By: #### 3 6900, 66868 #### [facility] [address] [place] [address], [place] GFR/1.73 sq M predicted among non-blacks MDRD (S/P/Bld) [Vol rate/Area] mL/min/{1.73_m2} Normal >60 [facility] Comment on above: Order Comment: No: D o not add to previous draw Performed By: #### 3 172, 87063 #### [facility] [address] [place] [address], [place] Glucose [Mass/Vol] 98 mg/dL Normal 70-100 [facility] Comment on above: Order Comment: No: D o not add to previous draw Performed By: #### 3 899, 89419 #### [facility] [address] [place] [address], [place] Potassium [Moles/Vol] 3.5 mmol/L Normal 3.5-5.1 [facility] Comment on above: Order Comment: No: D o not add to previous draw Performed By: #### 3 277, 34702 #### [facility] [address] [place] [address], [place] Sodium [Moles/Vol] 139 mmol/L Normal 136-145 [facility] Comment on above: Order Comment: No: D o not add to previous draw Performed By: #### 3 471, 20252 #### [facility] [address] [place] [address], [place] Urea nitrogen [Mass/Vol] 11 mg/dL Normal 7-25 [facility] Comment on above: Order Comment: No: D o not add to previous draw Performed By: #### 3 6901, 98478 #### [facility] 3000 [facility] [address] BLOOD STOOL GUAIACon 019 BLD STOOL GUAIAC Negative Normal NEGATIVE [facility] Comment on above: Order Comment: No: D o not add to previous draw Performed By: #### 3 6901, 29183 #### [facility] 3000 [facility]. [address] MAGNESIUM BLOODon 08-16-2019 Magnesium [Mass/Vol] 2.0 mg/dL Normal 1.9-2.7 [facility] Comment on above: Order Comment: No: D o not add to previous draw Performed By: #### 3 6901, 24308 #### [facility] [address] *URINE CULTUREon 08-15-2019 Bacteria identified Cx Nom (U) Clinical Report: (D) Specimen/Source: URINE/MIDSTREAM Collected: 08/15/2019 20:40 Status: Final Last Updated: 08/17/2019 08:05 ISO (Final) Escherichia coli >100,000 Cfu/Ml ISOLATE: Escherichia coli RHONDA (mcg/ml) AMP./SULBAC (AMS) 16/8 Intermediate AMPICILLIN (AM) >16 Resistant AZTREONAM (AZM) <=1 Susceptible CEFAZOLIN (CZ) 2 Susceptible CEFTRIAXONE (INSTALL AND REPAIR TECHNICIAN) <=0.5 Susceptible CIPROFLOXACIN (CIP) >2 Resistant ESBL (-/+) (ESBL) Negative GENTAMICIN (GM) <=1 Susceptible NITROFURANTOIN (FT) <=16 Susceptible PIP/TAZO (TZP) 4/4 Susceptible TOBRAMYCIN (TOB) 1 Susceptible TRIMETH/SULFA (SXT) >2/38 Resistant Normal [facility] Comment on above: Performed By: #### 3 6901, 85731 #### [facility] [address] [place] [address], [place] BASIC METABOLIC PANELon 12- Calcium [Mass/Vol] 8.8 mg/dL Normal 8.6-10.3 [facility] Comment on above: Order Comment: No: D o not add to previous draw Performed By: #### 0 0071, 82569, 96281 #### [facility] [address] [place] [address], [place] Chloride [Moles/Vol] 107 mmol/L Normal 98-107 [facility] Comment on above: Order Comment: No: D o not add to previous draw Performed By: #### 0 0071, 89941, 70273 #### [facility] [address] [place] [address], [place] CO2 [Moles/Vol] 27 mmol/L Normal 21-31 [facility] Comment on above: Order Comment: No: D o not add to previous draw Performed By: #### 0 0071, 42963, 39757 #### [facility] [address] [place] [address], [place] Creatinine [Mass/Vol] 0.99 mg/dL Normal 0.60-1.20 [facility] Comment on above: Order Comment: No: D o not add to previous draw Performed By: #### 0 0071, 77502, 31671 #### [facility] [address] [place] [address], [place] GFR/1.73 sq M predicted among blacks MDRD (S/P/Bld) [Vol rate/Area] mL/min/{1.73_m2} Normal >60 [facility] Comment on above: Order Comment: No: D o not add to previous draw Performed By: #### 0 0071, 74583, 73924 #### [facility] [address] [place] [address], [place] GFR/1.73 sq M predicted among non-blacks MDRD (S/P/Bld) [Vol rate/Area] 59 ml/min/1.73sq m Abnormal >60 [facility] Comment on above: Order Comment: No: D o not add to previous draw Performed By: #### 0 0071, 33827, 36195 #### [facility] [address] [place] [address], [place] Glucose [Mass/Vol] 100 mg/dL Normal 70-100 [facility] Comment on above: Order Comment: No: D o not add to previous draw Performed By: #### 0 0071, 78890, 47515 #### [facility] [address] [place] [address], [place] Potassium [Moles/Vol] 3.6 mmol/L Normal 3.5-5.1 [facility] Comment on above: Order Comment: No: D o not add to previous draw Performed By: #### 0 0071, 04991, 35415 #### [facility] [address] [place] [address], [place] Sodium [Moles/Vol] 140 mmol/L Normal 136-145 [facility] Comment on above: Order Comment: No: D o not add to previous draw Performed By: #### 0 0071, 71145, 70589 #### [facility] [address] [place] [address], [place] Urea nitrogen [Mass/Vol] 9 mg/dL Normal 7-25 [facility] Comment on above: Order Comment: No: D o not add to previous draw Performed By: #### 0 0071, 98905, 12896 #### [facility] [address] [place] [address], [place] LACTATE BLOODon 08-15-2019 Lactate [Moles/Vol] 0.8 mmol/L Normal 0.5-2.2 [facility] Comment on above: Order Comment: Yes: Add to Previous draw if able Performed By: #### 1 0054 #### [facility] 3000 [facility] [address] LMWH HEPARIN ASSAYon 019 LOW MOLECULAR WEIGHT HEPARIN 0.32 IU/mL Low 0.60-1.20 [facility] Comment on above: Order Comment: (draw [...] and LMWH. Performed By: #### 3 6901, 94420 #### [facility] [address] [place] [address], [facility] MAGNESIUM BLOODon 08-15-2019 Magnesium [Mass/Vol] 1.7 mg/dL Low 1.9-2.7 [facility] Comment on above: Order Comment: No: D o not add to previous draw Performed By: #### 0 0071, 93745, 75401 #### [facility] [address] [facility] [place] [address], [facility] PHOSPHORUS BLOODon 9 Phosphate [Mass/Vol] 4.1 mg/dL Normal 2.5-5.0 [facility] Comment on above: Order Comment: No: D o not add to previous draw Performed By: #### 0 0071, 65115, 62385 #### [facility] [address] [place] [address], [facility] UGI WITH SMALL BOWELon 08-15 UGI WITH SMALL BOWEL [facility] Department of Radiology [address] [place] [id number] Patient Name: CONSTANTINO CARDOSO : 1970 Sex: F Age: Race: White Pt. Location: [id number] Patient Status: O Ordered Date: 08/15/2019 10:45:00 [...] ischemia. Electronically signed by:Orestes Condon. Transcribed by: [email or web address], User Resident: Electronically Signed by: ORESTES CONDON @ 08/15/2019 04:13 PM Normal [facility] Comment on above: Order Comment: R/O O bstruction URINALYSIS REFLEXon 08-15-20 19 Appearance (U) SL CLOUDY Abnormal CLEAR [facility] Comment on above: Order Comment: No: D o not add to previous drawCriteria for reflexing a culture was met. Urine Culture and sensitivitywill be performed. Performed By: #### 3 8901, 42048 #### [facility] [address] [place] [address], [facility] Bilirubin [Mass/Vol] Negative Normal NEGATIVE [facility] Comment on above: Order Comment: No: D o not add to previous drawCriteria for reflexing a culture was met. Urine Culture and sensitivitywill be performed. Performed By: #### 3 6901, 79685 #### [facility] [address] [place] [address], [facility] BLOOD SMALL Abnormal NEGATIVE [facility] Comment on above: Order Comment: No: D o not add to previous drawCriteria for reflexing a culture was met. Urine Culture and sensitivitywill be performed. Performed By: #### 3 2641, 76213 #### [facility] [address] [place] [address], [place] Color (U) YELLOW Normal YELLOW [facility] Comment on above: Order Comment: No: D o not add to previous drawCriteria for reflexing a culture was met. Urine Culture and sensitivitywill be performed. Performed By: #### 3 6901, 55054 #### [facility] [address] [place] [address], [place] EPIS OCC Normal FEW,OCC,NON E SEEN [facility] Comment on above: Order Comment: No: D o not add to previous drawCriteria for reflexing a culture was met. Urine Culture and sensitivitywill be performed. Performed By: #### 3 6901, 52226 #### [facility] [address] [place] [address], [facility] Glucose [Mass/Vol] Negative Normal NEGATIVE [facility] Comment on above: Order Comment: No: D o not add to previous drawCriteria for reflexing a culture was met. Urine Culture and sensitivitywill be performed. Performed By: #### 3 6901, 68294 #### [facility] [address] [place] [address], [facility] HYALINE CASTS 6-10 Abnormal NONE SEEN [facility] Comment on above: Order Comment: No: D o not add to previous drawCriteria for reflexing a culture was met. Urine Culture and sensitivitywill be performed. Performed By: #### 3 6901, 89758 #### [facility] [address] [place] [address], [facility] KETONE Negative Normal NEGATIVE [facility] Comment on above: Order Comment: No: D o not add to previous drawCriteria for reflexing a culture was met. Urine Culture and sensitivitywill be performed. Performed By: #### 3 690, 14474 #### [facility] [address] [place] [address], [facility] LEUK JONN MODERATE Abnormal NEGATIVE [facility] Comment on above: Order Comment: No: D o not add to previous drawCriteria for reflexing a culture was met. Urine Culture and sensitivitywill be performed. Performed By: #### 3 6901, 31450 #### [facility] [address] [place] [address], [facility] MUCUS THREADS FEW Abnormal NONE SEEN [facility] Comment on above: Order Comment: No: D o not add to previous drawCriteria for reflexing a culture was met. Urine Culture and sensitivitywill be performed. Performed By: #### 3 6901, 99772 #### [facility] [address] [place] [address], [facility] Nitrite Ql (U) Negative Normal NEGATIVE [facility] Comment on above: Order Comment: No: D o not add to previous drawCriteria for reflexing a culture was met. Urine Culture and sensitivitywill be performed. Performed By: #### 3 6901, 41481 #### [facility] [address] [place] [address], [facility] pH (Bld) 5.0 Normal 5.0-8.0 [facility] Comment on above: Order Comment: No: D o not add to previous drawCriteria for reflexing a culture was met. Urine Culture and sensitivitywill be performed. Performed By: #### 3 690, 42843 #### [facility] [address] [facility] [place] [address], [facility] Protein (U) [Mass/Vol] Negative Normal NEGATIVE [facility] Comment on above: Order Comment: No: D o not add to previous drawCriteria for reflexing a culture was met. Urine Culture and sensitivitywill be performed. Performed By: #### 3 225, 33399 #### [facility] [address] [place] [address], [facility] RBC (U) [#/Vol] 6-10 Abnormal NONE SEEN [facility] Comment on above: Order Comment: No: D o not add to previous drawCriteria for reflexing a culture was met. Urine Culture and sensitivitywill be performed. Performed By: #### 3 603, 09787 #### [facility] [address] [facility] [place] [address], [facility] SPEC GRAV 1.025 High 1.015-1.020 [facility] Comment on above: Order Comment: No: D o not add to previous drawCriteria for reflexing a culture was met. Urine Culture and sensitivitywill be performed. Performed By: #### 3 6901, 05211 #### [facility] [address] [facility] [place] [address], [facility] WBC UA 51-100 Abnormal NONE SEEN [facility] Comment on above: Order Comment: No: D o not add to previous drawCriteria for reflexing a culture was met. Urine Culture and sensitivitywill be performed. Performed By: #### 3 6901, 94728 #### [facility] [address] CBC COMPLETE BLOOD COUNTon 10-15-2018 Erythrocyte distribution width (RBC) [Ratio] 12.7 % Normal 11.5-15.0 [facility] Comment on above: Order Comment: No: D o not add to previous draw Performed By: #### 5 0608 #### [facility] [address] [facility] [address] Hematocrit (Bld) [Volume fraction] 31.2 % Low 36.0-45.0 [facility] Comment on above: Order Comment: No: D o not add to previous draw Performed By: #### 5 0608 #### [facility] [address] Hemoglobin (Bld) [Mass/Vol] 9.8 g/dL Low 12.0-15.0 [facility] Comment on above: Order Comment: No: D o not add to previous draw Performed By: #### 5 0608 #### [facility] 3000 [place] [address], [facility] MCH (RBC) [Entitic mass] 29.1 pg Normal 27.0-33.0 [facility] Comment on above: Order Comment: No: D o not add to previous draw Performed By: #### 5 [id number] #### [facility] [address] [place] [address], [facility] MCHC (RBC) [Mass/Vol] 31.4 g/dL Low 32.0-35.0 [facility] Comment on above: Order Comment: No: D o not add to previous draw Performed By: #### 5 0608 #### [facility] [address] [place] [address], [facility] MCV (RBC) [Entitic vol] 92.6 fL Normal 82.0-98.0 [facility] Comment on above: Order Comment: No: D o not add to previous draw Performed By: #### 5 0608 #### [facility] [address] [facility] [place] [address], [facility] Nucleated RBC/100 WBC (Bld) [Ratio] 0 % Normal 0-0 [facility] Comment on above: Order Comment: No: D o not add to previous draw Performed By: #### 5 0608 #### [facility] [address] [place] [address], [facility] PLAT CNT 340 10*3/uL Normal 150-400 [facility] Comment on above: Order Comment: No: D o not add to previous draw Performed By: #### 5 0608 #### [facility] [address] [place] [address], [facility] RBC (Bld) [#/Vol] 3.37 10*6/uL Low 3.80-5.00 [facility] Comment on above: Order Comment: No: D o not add to previous draw Performed By: #### 5 0608 #### [facility] [address] [place] [address], [facility] WBC (Bld) [#/Vol] 6.04 10*3/uL Normal 4.00-10.60 [facility] Comment on above: Order Comment: No: D o not add to previous draw Performed By: #### 5 0608 #### [facility] [address] [place] [address], [facility] PROTHROMBIN TIMEon [id number] INR Coag (PPP) [Relative time] 1.09 {INR} Normal 0.91-1.16 [facility] Comment on above: Order Comment: No: [...] Performed By: #### 5 6101 #### [address] PT Coag (PPP) [Time] 14.1 s Normal 12.3-14.8 [facility] Comment on above: Order Comment: No: D o not add to previous draw Result Comment: ALL RESULTS MUST BE INTERPRETED WITH RESPECT TO BLOOD DRAWING ARTIFACT OR DILUTION ERROR OF ANTICOAGULANT AT THE TIME OF SAMPLING. Performed By: #### 5 6101 #### [address] 08-14-2019 [facility] Department of Radiology [address] [place] [id number] Patient Name: CONSTANTINO CARDOSO : 1970 Sex: F Age: Race: White Pt. Location: [id number] Patient Status: O Ordered Date: 08/13/2019 8:30:00 [...] cholecystectomy. Electronically signed by:Orestes Condon. Transcribed by: [email or web address], User Resident: Electronically Signed by: ORESTES CONDON @ 08/14/2019 02:09 PM Normal [facility] Comment on above: Order Comment: R/O S tones BASIC METABOLIC PANELon 12-0 Calcium [Mass/Vol] 9.4 mg/dL Normal 8.6-10.3 [facility] Comment on above: Order Comment: No: D o not add to previous draw Performed By: #### 3 4954, [id number] #### [facility] [address] [place] [address], [facility] Chloride [Moles/Vol] 105 mmol/L Normal 98-107 [facility] Comment on above: Order Comment: No: D o not add to previous draw Performed By: #### 3 636, 75039 #### [facility] [address] [place] [address], [place] CO2 [Moles/Vol] 26 mmol/L Normal 21-31 [facility] Comment on above: Order Comment: No: D o not add to previous draw Performed By: #### 3 851, 35421 #### [facility] [address] [place] [address], [place] Creatinine [Mass/Vol] 1.03 mg/dL Normal 0.60-1.20 [facility] Comment on above: Order Comment: No: D o not add to previous draw Performed By: #### 3 999, 28993 #### [facility] [address] [place] [address], [place] GFR/1.73 sq M predicted among blacks MDRD (S/P/Bld) [Vol rate/Area] mL/min/{1.73_m2} Normal >60 [facility] Comment on above: Order Comment: No: D o not add to previous draw Performed By: #### 3 869, 28220 #### [facility] [address] [place] [address], [place] GFR/1.73 sq M predicted among non-blacks MDRD (S/P/Bld) [Vol rate/Area] 57 ml/min/1.73sq m Abnormal >60 [facility] Comment on above: Order Comment: No: D o not add to previous draw Performed By: #### 3 405, 08609 #### [facility] [address] [place] [address], [place] Glucose [Mass/Vol] 96 mg/dL Normal 70-100 [facility] Comment on above: Order Comment: No: D o not add to previous draw Performed By: #### 3 847, 20114 #### [facility] [address] [place] [address], [place] Potassium [Moles/Vol] 4.1 mmol/L Normal 3.5-5.1 [facility] Comment on above: Order Comment: No: D o not add to previous draw Performed By: #### 3 1881, 58763 #### [facility] [address] [place] [address], [facility] Sodium [Moles/Vol] 138 mmol/L Normal 136-145 [facility] Comment on above: Order Comment: No: D o not add to previous draw Performed By: #### 3 127, 99778 #### [facility] [address] [place] [address], [facility] Urea nitrogen [Mass/Vol] 16 mg/dL Normal 7-25 [facility] Comment on above: Order Comment: No: D o not add to previous draw Performed By: #### 3 460, 95189 #### [facility] [address] [facility] [place] [address], [facility] CBC W/DIFFon 08-13-2019 ABS BASOPHILS 0.0 10*3/uL Normal 0.0-0.2 [facility] Comment on above: Order Comment: No: D o not add to previous draw Performed By: #### 5 0103 #### [facility] [address] [place] [address], [facility] ABS IMM GRANS 0.0 10*3/uL Normal 0.0-0.2 [facility] Comment on above: Order Comment: No: D o not add to previous draw Performed By: #### 5 0103 #### [facility] [address] [facility] [place] [address], [facility] ABS NEUTROPHILS 4.0 10*3/uL Normal 1.6-7.6 [facility] Comment on above: Order Comment: No: D o not add to previous draw Performed By: #### 5 0103 #### [facility] [address] [place] [address], [facility] Basophils/100 WBC (Bld) 0.5 % Normal 0.0-1.0 [facility] Comment on above: Order Comment: No: D o not add to previous draw Performed By: #### 5 0103 #### [facility] [address] [facility] [place] [address], [facility] Eosinophils (Bld) [#/Vol] 0.2 10*3/uL Normal 0.0-0.5 [facility] Comment on above: Order Comment: No: D o not add to previous draw Performed By: #### 5 0103 #### [facility] [address] [facility] [place] [address], [facility] Eosinophils/100 WBC (Bld) 3.3 % Normal 0.0-6.0 [facility] Comment on above: Order Comment: No: D o not add to previous draw Performed By: #### 5 0103 #### [facility] [address] [facility]. [address] Erythrocyte distribution width (RBC) [Ratio] 12.7 % Normal 11.5-15.0 [facility] Comment on above: Order Comment: No: D o not add to previous draw Performed By: #### 5 0103 #### [facility] [address] [place] [address], [facility] Hematocrit (Bld) [Volume fraction] 33.4 % Low 36.0-45.0 [facility] Comment on above: Order Comment: No: D o not add to previous draw Performed By: #### 5 0103 #### [facility] [address] [place] [address], [facility] Hemoglobin (Bld) [Mass/Vol] 10.5 g/dL Low 12.0-15.0 [facility] Comment on above: Order Comment: No: D o not add to previous draw Performed By: #### 5 0103 #### [facility] [address] [place] [address], [facility] IMMATURE GRANS 0.2 % Normal 0.0-1.0 [facility] Comment on above: Order Comment: No: D o not add to previous draw Performed By: #### 5 0103 #### [facility] [address] [place] [address], [facility] Lymphocytes (Bld) [#/Vol] 1.8 10*3/uL Normal 1.2-4.0 [facility] Comment on above: Order Comment: No: D o not add to previous draw Performed By: #### 5 0103 #### [facility] [address] [place] [address], [facility] Lymphocytes/100 WBC (Bld) 28.2 % Normal 20.0-45.0 [facility] Comment on above: Order Comment: No: D o not add to previous draw Performed By: #### 5 0103 #### [facility] [address] [facility] [place] [place] [address], [facility] MCH (RBC) [Entitic mass] 28.9 pg Normal 27.0-33.0 [facility] Comment on above: Order Comment: No: D o not add to previous draw Performed By: #### 5 0103 #### [facility] [address] [facility] [place] [address], [facility] MCHC (RBC) [Mass/Vol] 31.4 g/dL Low 32.0-35.0 [facility] Comment on above: Order Comment: No: D o not add to previous draw Performed By: #### 5 0103 #### [facility] [address] [place] [id number], [facility] MCV (RBC) [Entitic vol] 92.0 fL Normal 82.0-98.0 [facility] Comment on above: Order Comment: No: D o not add to previous draw Performed By: #### 5 0103 #### [facility] [address] [place] [id number], [facility] Monocytes (Bld) [#/Vol] 0.4 10*3/uL Normal 0.1-1.0 [facility] Comment on above: Order Comment: No: D o not add to previous draw Performed By: #### 5 0103 #### [facility] [address] [place] [address], [facility] MONOS 6.2 % Normal 5.0-12.0 [facility] Comment on above: Order Comment: No: D o not add to previous draw Performed By: #### 5 0103 #### [facility] [address] [place] [address], [facility] Neutrophils/100 WBC (Bld) 61.6 % Normal 40.0-72.0 [facility] Comment on above: Order Comment: No: D o not add to previous draw Performed By: #### 5 0103 #### [facility] [address] [place] [address], [facility] Nucleated RBC/100 WBC (Bld) [Ratio] 0 % Normal 0-0 [facility] Comment on above: Order Comment: No: D o not add to previous draw Performed By: #### 5 0103 #### [facility] [address] [place] [address], [place] PLAT CNT 382 10*3/uL Normal 150-400 [facility] Comment on above: Order Comment: No: D o not add to previous draw Performed By: #### 5 0103 #### [facility] [address] [place] [address], [facility] RBC (Bld) [#/Vol] 3.63 10*6/uL Low 3.80-5.00 [facility] Comment on above: Order Comment: No: D o not add to previous draw Performed By: #### 5 0103 #### [facility] [address] [place] [address], [place] WBC (Bld) [#/Vol] 6.45 10*3/uL Normal 4.00-10.60 [facility] Comment on above: Order Comment: No: D o not add to previous draw Performed By: #### 5 0103 #### [facility] [address] LIPASE BLOODon 08-13-2019 Lipase [Catalytic activity/Vol] 13 Units/L Normal 1182 [facility] Comment on above: Performed By: #### 3 6901, 39732 #### [facility] [address] [facility] [address] Vital Signs Date Time Vital Sign Value Performing Clinician Facility 01-07-2025 14:15-0400 Body height 170.2 cm Nikki Ayoub PA Work Phone: [facility] 01-07-2025 14:15-0400 Body mass index (BMI) [Ratio] 29.44 kg/m2 Nikki Ayoub PA Work Phone: [facility] 01-07-2025 14:15-0400 Body weight 85.28 kg Nikki Ayoub PA Work Phone: [facility] 01-07-2025 14:15-0400 Diastolic blood pressure 92 mm[Hg] Nikki Ayoub PA Work Phone: [facility] 01-07-2025 14:15-0400 Heart rate 52 /min Nikki Ayoub PA Work Phone: [facility] 01-07-2025 14:15-0400 Respiratory rate 16 /min Nikki Ayoub PA Work Phone: [facility] 01-07-2025 14:15-0400 SaO2% (BldA) [Mass fraction] 98 % Nikki Ayoub PA Work Phone: [facility] 01-07-2025 14:15-0400 Systolic blood pressure 142 mm[Hg] Nikki Ayoub PA Work Phone: [facility] 11-26-2024 10:51-0400 Body height 170.2 cm Nikki Ayoub PA Work Phone: [facility] 11-26-2024 10:51-0400 Body mass index (BMI) [Ratio] 30.23 kg/m2 Nikki Ayoub PA Work Phone: [facility] 11-26-2024 10:51-0400 Body weight 87.54 kg Nikkimatthew Ayoub PA Work Phone: [facility] 11-26-2024 10:51-0400 Diastolic blood pressure 84 mm[Hg] Nikkimatthew Ayoub PA Work Phone: [facility] 11-26-2024 10:51-0400 Heart rate 77 /min Nikkimatthew Ayoub PA Work Phone: [facility] 11-26-2024 10:51-0400 Respiratory rate 16 /min Nikki Ayoub PA Work Phone: [facility] 11-26-2024 10:51-0400 SaO2% (BldA) [Mass fraction] 99 % Nikki Ayoub PA Work Phone: [facility] 11-26-2024 10:51-0400 Systolic blood pressure 124 mm[Hg] Nikki Ayoub PA Work Phone: [facility] 10-20-2024 18:00-0500 Hourly Rounding Eliezer Paster [facility] 10-20-2024 18:00-0500 Promise to Return Eliezer Paster [facility] 10-20-2024 17:00-0500 Hourly Rounding Eliezer Paster [facility] 10-20-2024 17:00-0500 Promise to Return Eliezer Paster [facility] 10-20-2024 16:00-0500 Hourly Rounding Eliezer Paster [facility] 10-20-2024 16:00-0500 Promise to Return Eliezer Paster [facility] 10-20-2024 13:48-0500 SaO2% (BldA) [Mass fraction] 96 % Eliezer Paster [facility] 10-20-2024 11:46-0500 Heart rate 54 /min Eliezer Paster [facility] 10-20-2024 11:46-0500 SaO2% (BldA) [Mass fraction] 96 % Eliezer Paster [facility] 10-20-2024 11:44-0500 Diastolic blood pressure 78 mm[Hg] Eliezer Paster [facility] 10-20-2024 11:44-0500 Mean blood pressure 95 mm[Hg] Eliezer Paster [facility] 10-20-2024 11:44-0500 Systolic blood pressure 127 mm[Hg] Eliezer Paster [facility] 10-20-2024 11:44-0500 Body temperature 97.7 [degF] Eliezer Paster [facility] 10-20-2024 10:24-0500 Diastolic blood pressure 80 mm[Hg] Eliezer Paster [facility] 10-20-2024 10:24-0500 Heart rate 77 /min Eliezer Paster [facility] 10-20-2024 10:24-0500 Systolic blood pressure 129 mm[Hg] Eliezer Paster [facility] 10-20-2024 07:55-0500 Heart rate 49 /min Eliezer Paster [facility] 10-20-2024 07:55-0500 SaO2% (BldA) [Mass fraction] 97 % Eliezer Paster [facility] 10-20-2024 07:53-0500 Mean blood pressure 97 mm[Hg] Eliezer Paster [facility] 10-20-2024 07:53-0500 Body temperature 97.52 [degF] Eliezer Paster [facility] 10-20-2024 04:00-0500 gluc 93 mg/dL Eliezer Paster [facility] 10-20-2024 03:57-0500 Heart rate 54 /min Eliezer Paster [facility] 10-20-2024 03:56-0500 Mean blood pressure 80 mm[Hg] Eliezer Paster [facility] 10-20-2024 03:56-0500 Body temperature 98.06 [degF] Eliezer Paster [facility] 10-20-2024 03:12-0500 Heart rate 49 /min Eliezer Paster [facility] 10-20-2024 03:12-0500 Mean blood pressure 98 mm[Hg] Eliezer Paster [facility] 10-20-2024 03:12-0500 Respiratory rate 16 /min Eliezer Paster [facility] 10-20-2024 01:00-0500 Heart rate 58 /min Eliezer Paster [facility] 10-20-2024 01:00-0500 Mean blood pressure 81 mm[Hg] Eliezer Paster [facility] 10-20-2024 00:00-0500 gluc 93 mg/dL Eliezer Paster [facility] 10-19-2024 23:00-0500 Heart rate 61 /min Eliezer Paster [facility] 10-19-2024 23:00-0500 Mean blood pressure 79 mm[Hg] Eliezer Paster [facility] 10-19-2024 20:30-0500 Body temperature 98.06 [degF] Eliezer Paster [facility] Comment on above: Result Comment: Patient arrives to room 212. Oriented to room. 02-14-2025 20:30-0500 Respiratory rate 16 /min Eliezer Lorenzo [facility] 10-19-2024 19:00-0500 Respiratory rate 22 /min Eliezer Lorenzo [facility] 10-19-2024 17:21-0500 Body temperature 98.42 [degF] Eliezer Lorenzo [facility] 08-30-2024 07:25-0500 Body temperature 97.9 [degF] Pete Otto [facility] [email or web address] 08-30-2024 07:25-0500 Diastolic blood pressure 89 mm[Hg] Pete [facility] 08-30-2024 07:25-0500 Heart rate 61 /min Pete Otto MD [facility] 08-30-2024 07:25-0500 Respiratory rate 16 /min Pete Otto MD Work Phone: [facility] [employer] 08-30-2024 07:25-0500 SaO2% (BldA) [Mass fraction] 96 % Pete Otto MD Work Phone: [facility] [employer] 08-30-2024 07:25-0500 Systolic blood pressure 144 mm[Hg] Pete Otto MD Work Phone: [facility] [employer] 08-28-2024 16:30-0500 Body height 170.2 cm Pete Otto MD Work Phone: [facility] [employer] 08-28-2024 16:30-0500 Body mass index (BMI) [Ratio] 28.82 kg/m2 Pete Otto MD Work Phone: [facility] [employer] 08-28-2024 16:30-0500 Body weight 83.5 kg Pete Otto MD Work Phone: [facility] [employer] 08-17-2024 13:40-0500 Body temperature 97.7 [degF] Justin Lucero MD [facility] 08-17-2024 13:40-0500 Diastolic blood pressure 89 mm[Hg] Justin Lucero MD [facility] 08-17-2024 13:40-0500 Heart rate 68 /min Justin Lucero MD [facility] 08-17-2024 13:40-0500 Respiratory rate 12 /min Justin Lucero MD [facility] [email or web address] 08-17-2024 13:40-0500 SaO2% (BldA) [Mass fraction] 99 % Justin Lucero MD Work Phone[facility] 08-17-2024 13:40-0500 Systolic blood pressure 159 mm[Hg] Justin Lucero MD [facility] [email or web address] 08-17-2024 11:29-0500 Body height 170.2 cm Justin Lucero MD [facility] [email or web address] 08-17-2024 11:29-0500 Body mass index (BMI) [Ratio] 29.75 kg/m2 Justin Lucero MD [facility] [email or web address] 08-17-2024 11:29-0500 Body weight 86.18 kg Justin Lucero MD Work Phone[facility] 07-13-2024 11:29-0500 Body height 170.2 cm Kulwant Hodge MD Work Phone: [facility] 07-13-2024 11:29-0500 Body mass index (BMI) [Ratio] 29.44 kg/m2 Kulwant Hodge MD Work Phone: [facility] 07-13-2024 11:29-0500 Body weight 85.28 kg Kulwant Hodge MD Work Phone: [facility] 07-13-2024 11:29-0500 Diastolic blood pressure 70 mm[Hg] Kulwant Hodge MD Work Phone: [facility] 07-13-2024 11:29-0500 Heart rate 68 /min Kulwant Hodge MD Work Phone: [facility] Comment on above: 02 SAT 96% 07-13-2024 11:29-0500 Respiratory rate 16 /min Kulwant Hodge MD Work Phone: [facility] 07-13-2024 11:29-0500 Systolic blood pressure 116 mm[Hg] Kulwant Hodge MD Work Phone: [facility] 06-20-2024 11:08-0400 Body height 170.2 cm Kulwant Hodge MD Work Phone: [facility] 06-20-2024 11:08-0400 Body mass index (BMI) [Ratio] 28.98 kg/m2 Kulwant Hodge MD Work Phone: [facility] 06-20-2024 11:08-0400 Body weight 83.92 kg Kulwant Hodge MD Work Phone: [facility] 06-20-2024 11:08-0400 Diastolic blood pressure 92 mm[Hg] Kulwatn Hodge MD Work Phone: [facility] 06-20-2024 11:08-0400 Heart rate 62 /min Kulwant Hodge MD Work Phone: [facility] 06-20-2024 11:08-0400 Respiratory rate 16 /min Kulwant Hodge MD Work Phone: [facility] 06-20-2024 11:08-0400 Systolic blood pressure 140 mm[Hg] Kulwant Hodge MD Work Phone: [facility] 05-11-2024 10:50-0400 Diastolic blood pressure 80 mm[Hg] DONI Youssef Work Phone: [facility] 05-11-2024 10:50-0400 Heart rate 67 /min CONSUMER EDUCATOR-C Judi Youssef Work Phone: [facility] 05-11-2024 10:50-0400 Respiratory rate 16 /min CONSUMER EDUCATOR-C Judi Youssef Work Phone: [facility] 05-11-2024 10:50-0400 SaO2% (BldA) [Mass fraction] 100 % CONSUMER EDUCATOR-C Judi Youssef Work Phone: [facility] 05-11-2024 10:50-0400 Systolic blood pressure 130 mm[Hg] CONSUMER EDUCATOR-C Judi Youssef Work Phone: [facility] 05-11-2024 08:23-0400 Body height 170.18 cm CONSUMER EDUCATOR-C Judi Youssef Work Phone: [facility] 05-11-2024 08:23-0400 Body weight 81.64 kg CONSUMER EDUCATOR-C Judi Youssef Work Phone: [facility] 04-26-2024 08:27-0400 Body height 170.[address] [facility] 04-26-2024 08:27-0400 Body mass index (BMI) [Ratio] 28.5 kg/m2 [facility] 04-26-2024 08:27-0400 Body weight 82.[address] [facility] 04-26-2024 08:27-0400 Diastolic blood pressure 82 mm[Hg] [facility] 04-26-2024 08:27-0400 Heart rate 59 /min [facility] 04-26-2024 08:27-0400 Systolic blood pressure 132 mm[Hg] [facility] 02-16-2024 09:03-0400 Blood Pressure Location Yolanda Lou [facility] 02-16-2024 09:03-0400 Body temperature 97.7 [degF] Yolanda Sancheszech [facility] 02-16-2024 09:03-0400 Diastolic blood pressure 84 mm[Hg] Yolanda Orzech [facility] 02-16-2024 09:03-0400 Heart rate 78 /min Yolanda Orzech [facility] 02-16-2024 09:03-0400 Systolic blood pressure 128 mm[Hg] Yolanda Orzech [facility] 07-22-2023 13:19-0500 Body height 170.[address] Work Phone: [facility] 07-22-2023 13:19-0500 Body weight 83.[address] Work Phone: [facility] 07-14-2023 11:40-0500 Diastolic blood pressure 95 mm[Hg] Marques Bradley MD Work Phone: [facility] 07-14-2023 11:40-0500 Heart rate 56 /min Marques Bradley MD Work Phone: [facility] 07-14-2023 11:40-0500 Respiratory rate 16 /min Marques Bradley MD Work Phone: [facility] 07-14-2023 11:40-0500 SaO2% (BldA) [Mass fraction] 97 % Marques Bradley MD Work Phone: [facility] 07-14-2023 11:40-0500 Systolic blood pressure 158 mm[Hg] Marques Bradley MD Work Phone: [facility] 07-14-2023 11:10-0500 Body temperature 97.2 [degF] Marques Bradley MD Work Phone: [facility] 07-14-2023 08:34-0500 Body height 170.2 cm Marques Bradley MD Work Phone: [facility] 07-14-2023 08:34-0500 Body weight 88 kg Marques Bradley MD Work Phone: [facility] [facility] 04-21-2023 09:30-0400 Body height 170.18 cm Renny Albaack Other [employer] Other 04-21-2023 09:30-0400 Body mass index (BMI) [Ratio] 31.21 kg/m2 Renny Omalley Other [employer] Other 04-21-2023 09:30-0400 Body weight 90.4 kg Renny Albaack Other [employer] Other 04-21-2023 09:30-0400 Diastolic blood pressure 78 mm[Hg] Renny Albaack Other [employer] Other 04-21-2023 09:30-0400 Systolic blood pressure 130 mm[Hg] Renny Omalley Other [employer] Other 03-23-2023 07:33-0400 Diastolic blood pressure 80 mm[Hg] CONSUMER EDUCATOR-C Judi Ugaldemer Work Phone: [facility] 03-23-2023 07:33-0400 Heart rate 81 /min CONSUMER EDUCATOR-C Judi Mikael Work Phone: [facility] 03-23-2023 07:33-0400 Respiratory rate 14 /min CONSUMER EDUCATOR-C Judi Mikael Work Phone: [facility] 03-23-2023 07:33-0400 SaO2% (BldA) [Mass fraction] 95 % CONSUMER EDUCATOR-C Judi Mikael Work Phone: [facility] 03-23-2023 07:33-0400 Systolic blood pressure 171 mm[Hg] CONSUMER EDUCATOR-C Judi Mikael Work Phone: [facility] 03-23-2023 06:20-0400 Body height 170.18 cm CONSUMER EDUCATOR-C Judi Mikael Work Phone: [facility] 03-23-2023 06:20-0400 Body temperature 97.4 [degF] CONSUMER EDUCATOR-C Judi Mikael Work Phone: [facility] 03-23-2023 06:20-0400 Body weight 90 kg CONSUMER EDUCATOR-C Judi Mikael Work Phone: [facility] 02-19-2023 00:53-0400 Body temperature 96.98 [degF] Kaylinn Dokken [facility] 02-19-2023 00:53-0400 Diastolic blood pressure 99 mm[Hg] Kaylinn Dokken [facility] 02-19-2023 00:53-0400 Heart rate 75 /min Kaylinn Dokken [facility] 02-19-2023 00:53-0400 Respiratory rate 16 /min Kaylinn Dokken [facility] 02-19-2023 00:53-0400 SaO2% (BldA) [Mass fraction] 98 % Kaylinn Dokken [facility] 02-19-2023 00:53-0400 Systolic blood pressure 153 mm[Hg] Kaylinn Dokken [facility] 02-15-2023 10:33-0400 Diastolic blood pressure 89 mm[Hg] CONSUMER EDUCATOR-C Judi Mikael Work Phone: [facility] 02-15-2023 10:33-0400 SaO2% (BldA) [Mass fraction] 100 % CONSUMER EDUCATOR-C Judi Mikael Work Phone: [facility] 02-15-2023 10:33-0400 Systolic blood pressure 149 mm[Hg] CONSUMER EDUCATOR-C Judi Mikael Work Phone: [facility] 02-15-2023 10:00-0400 Heart rate 83 /min CONSUMER EDUCATOR-C Judi Mikael Work Phone: [facility] 02-15-2023 10:00-0400 Respiratory rate 16 /min CONSUMER EDUCATOR-C Judi Mikael Work Phone: [facility] 02-15-2023 08:06-0400 Body height 170.18 cm CONSUMER EDUCATOR-C Judi Mikael Work Phone: [facility] 02-15-2023 08:06-0400 Body temperature 97.6 [degF] CONSUMER EDUCATOR-C Judi Mikael Work Phone: [facility] 02-15-2023 08:06-0400 Body weight 89.2 kg CONSUMER EDUCATOR-C Judi Mikael Work Phone: [facility] 10-26-2022 08:03-0500 Diastolic blood pressure 87 mm[Hg] CONSUMER EDUCATOR-C Judi Mikael Work Phone: [facility] 10-26-2022 08:03-0500 Heart rate 70 /min CONSUMER EDUCATOR-C Judi Mikael Work Phone: [facility] 10-26-2022 08:03-0500 Respiratory rate 18 /min CONSUMER EDUCATOR-C Judi Mikael Work Phone: [facility] 10-26-2022 08:03-0500 SaO2% (BldA) [Mass fraction] 98 % CONSUMER EDUCATOR-C Judi Mikael Work Phone: [facility] 10-26-2022 08:03-0500 Systolic blood pressure 161 mm[Hg] CONSUMER EDUCATOR-C Judi Mikael Work Phone: [facility] 10-26-2022 06:17-0500 Body height 170.18 cm CONSUMER EDUCATOR-C Judi Mikael Work Phone: [facility] 10-26-2022 06:17-0500 Body temperature 97.2 [degF] CONSUMER EDUCATOR-C Judi Mikael Work Phone: [facility] 10-26-2022 06:17-0500 Body weight 88.9 kg CONSUMER EDUCATOR-C Judi Youssef Work Phone: [facility] 07-22-2022 14:34-0500 Diastolic blood pressure 83 mm[Hg] Ospina SALAM [facility] 07-22-2022 14:34-0500 Mean blood pressure 101 mm[Hg] Ospina SALAM [facility] 07-22-2022 14:34-0500 Systolic blood pressure 136 mm[Hg] Ospina SALAM [facility] 07-22-2022 14:30-0500 Blood Pressure Location Ospina SALAM [facility] 07-22-2022 14:30-0500 Diastolic blood pressure 89 mm[Hg] Ospina SALAM [facility] 07-22-2022 14:30-0500 Heart rate 62 /min Ospina SALAM [facility] 07-22-2022 14:30-0500 Respiratory rate 16 /min Ospina SALAM [facility] 07-22-2022 14:30-0500 SaO2% (BldA) [Mass fraction] 98 % Ospina SALAM [facility] 07-22-2022 14:30-0500 Systolic blood pressure 141 mm[Hg] Ospina SALAM [facility] 04-14-2022 14:50-0400 Blood Pressure Location Monique Marquez [facility] 04-14-2022 14:50-0400 Body temperature 97.16 [degF] Monique Marquez [facility] 04-14-2022 14:50-0400 Diastolic blood pressure 86 mm[Hg] Monique Jimmy [facility] 04-14-2022 14:50-0400 Heart rate 72 /min Monique Jimmy [facility] 04-14-2022 14:50-0400 SaO2% (BldA) [Mass fraction] 97 % Monique Jimmy [facility] 04-14-2022 14:50-0400 Systolic blood pressure 131 mm[Hg] Monique Jimmy [facility] 01-28-2022 13:36-0400 Blood Pressure Location Monique Jimmy [facility] 01-28-2022 13:36-0400 Body temperature 97.52 [degF] Monique Jimmy [facility] 01-28-2022 13:36-0400 Diastolic blood pressure 85 mm[Hg] Monique Jimmy [facility] 01-28-2022 13:36-0400 Heart rate 73 /min Monique Jimmy [facility] 01-28-2022 13:36-0400 SaO2% (BldA) [Mass fraction] 96 % Monique Jimmy [facility] 01-28-2022 13:36-0400 Systolic blood pressure 122 mm[Hg] Monique Marquez [facility] 01-11-2022 10:15-0400 Blood Pressure Location Ospina SALAM [facility] 01-11-2022 10:15-0400 Diastolic blood pressure 106 mm[Hg] Ospina SALAM [facility] 01-11-2022 10:15-0400 Heart rate 70 /min Ospina SALAM [facility] 01-11-2022 10:15-0400 Respiratory rate 28 /min Ospina SALAM [facility] 01-11-2022 10:15-0400 SaO2% (BldA) [Mass fraction] 99 % Ospina SALAM [facility] 01-11-2022 10:15-0400 Systolic blood pressure 137 mm[Hg] Ospina SALAM [facility] 01-11-2022 10:05-0400 Blood Pressure Location Ospina SALAM [facility] 01-11-2022 10:05-0400 Diastolic blood pressure 74 mm[Hg] Ospina SALAM [facility] 01-11-2022 10:05-0400 Heart rate 67 /min Ospina SALAM [facility] 01-11-2022 10:05-0400 Respiratory rate 14 /min Ospina SALAM [facility] 01-11-2022 10:05-0400 SaO2% (BldA) [Mass fraction] 97 % Ospina SALAM [facility] 01-11-2022 10:05-0400 Systolic blood pressure 128 mm[Hg] Ospina SALAM [facility] 01-11-2022 10:00-0400 Blood Pressure Location Ospina SALAM [facility] 01-11-2022 10:00-0400 Diastolic blood pressure 79 mm[Hg] Ospina SALAM [facility] 01-11-2022 10:00-0400 Heart rate 66 /min Ospina SALAM [facility] 01-11-2022 10:00-0400 Respiratory rate 16 /min Ospina SALAM [facility] 01-11-2022 10:00-0400 SaO2% (BldA) [Mass fraction] 98 % Ospina SALAM [facility] 01-11-2022 10:00-0400 Systolic blood pressure 134 mm[Hg] Ospina SALAM [facility] 01-11-2022 09:50-0400 Body temperature 97.52 [degF] Ospina SALAM [facility] 01-11-2022 09:45-0400 Respiratory rate 15 /min Ospina SALAM [facility] 01-11-2022 09:18-0400 Body temperature 97.34 [degF] Ospina SALAM [facility] 01-11-2022 09:18-0400 Respiratory rate 20 /min Ospina SALAM [facility] Encounters Encounter Date Encounter Type Care Provider Facility Start: 01-07-2025 End: 01-07-2025 Office outpatient visit 25 minutes Nikki HAQ Work Phone: [facility] Comment on above: Seizure (CMS/HCC) (P rimary Dx); History of obstructive sleep apnea; Migraine without aura and without status migrainosus, not intractable (CMS/HCC); Dizziness Start: 01-07-2025 End: 01-07-2025 ambulatory NIKKI AYOUB Not Available Start: 01-07-2025 End: 01-07-2025 Bamboo flowsheet Nikki HAQ Work Phone: [facility] Start: 01-07-2025 End: 01-07-2025 Bamboo flowsheet Nikki HAQ Work Phone: [facility] Start: 12-28-2024 End: 12-28-2024 ambulatory [facility] Start: 12-18-2024 End: 12-18-2024 ambulatory Nicanor Perez [facility] Work Phone: Start: 12-18-2024 End: 12-18-2024 Departed Referred Nicanor Perez MD Work Phone: [facility] Start: 11-26-2024 End: 11-26-2024 Office outpatient visit 25 minutes Nikki HAQ Work Phone: [facility] Comment on above: Seizure (CMS/HCC) (P rimary Dx); History of obstructive sleep apnea; Migraine without aura and without status migrainosus, not intractable (CMS/HCC) Start: 11-26-2024 End: 11-26-2024 ambulatory NIKKI AYOUB Not Available Start: 10-19-2024 End: 10-20-2024 ambulatory Eliezer Lorenzo Facility:[facility] Start: 10-19-2024 [facility] Start: 10-19-2024 End: 10-20-2024 Observation Eliezer Lorenzo [facility] Start: 09-17-2024 End: 09-17-2024 ambulatory [facility] Start: 08-28-2024 End: 08-30-2024 Evaluation and management of inpatient Pete Otto MD Work Phone: [facility] Renal//Med Surg Comment on above: Ileus (HCC) (Primary Dx); Generalized abdominal pain; Hypokalemia Start: 08-17-2024 End: 08-17-2024 ambulatory JUSTIN LUCERO [facility] Start: 08-17-2024 End: 08-17-2024 Subsequent hospital visit by physician Justin Lucero MD Work Phone: [facility] Comment on above: Other dysphagia (Apple alfonzo Dx) Start: 07-13-2024 End: 07-13-2024 Bamboo flowsnidhi Hodge MD Work Phone: [facility] Start: 07-13-2024 End: 07-13-2024 Bamtyler Hodge MD Work Phone: [facility] Start: 07-13-2024 End: 07-13-2024 Office outpatient visit 25 minutes Kulwant Hodge MD Work Phone: [facility] Comment on above: Hypoglycemia Start: 07-13-2024 End: 07-13-2024 ambulatory KULWANT HODGE Not Available Start: 06-20-2024 End: 06-20-2024 Bammariumo kati Hodge MD Work Phone: [facility] Start: 06-20-2024 End: 06-20-2024 Bamboo flowsnidhi Hodge MD Work Phone: [facility] Start: 06-20-2024 End: 06-20-2024 ambulatory KULWANT HODGE Not Available Start: 06-20-2024 End: 06-20-2024 Office outpatient new 45 minutes Kulwant Hodge MD Work Phone: [facility] Comment on above: Hypoglycemia (Primar y Dx); Encounter for dietary consultation Start: 06-19-2024 End: 06-19-2024 Patient encounter procedure DONI Youssef Work Phone: [facility] Work Phone: Start: 06-19-2024 End: 06-19-2024 ambulatory CONSUMER EDUCATOR-C Judi Joan Youssef Work Phone: [facility] Work Phone: Start: 06-07-2024 End: 06-07-2024 ambulatory Yolanda X Orzech Facility:[facility] Start: 06-07-2024 End: 06-07-2024 Patient encounter procedure Yolanda X Orzech [facility] Start: 05-14-2024 End: 05-14-2024 ambulatory [facility] Start: 05-11-2024 Non-patient / Non-visit CONSUMER EDUCATOR-C P christi Youssef Work Phone: [facility] Work Phone: Start: 05-11-2024 End: 05-11-2024 Admission to same day surgery center CONSUMER EDUCATOR-C Judi Youssef Work Phone: [facility] Work Phone: Start: 05-11-2024 End: 05-11-2024 ambulatory CONSUMER EDUCATOR-C Judi Youssef Work Phone: [facility] Work Phone: Start: 04-26-2024 End: 04-26-2024 ambulatory [facility] Work Phone: Start: 04-26-2024 End: 04-26-2024 Patient encounter procedure [facility] Work Phone: Start: 04-13-2024 Non-patient / Non-visit CONSUMER EDUCATOR-C P christi Youssef Work Phone: [facility] Work Phone: Start: 03-19-2024 End: 03-19-2024 ambulatory [facility] Start: 02-16-2024 End: 02-16-2024 ambulatory Yolanda X Orzech Facility:[facility] Start: 02-16-2024 End: 02-16-2024 Lab Drop off Yolanda X Orzech [facility] Start: 02-16-2024 End: 02-16-2024 ambulatory Yolanda X Orzech Facility: [facility] Start: 02-16-2024 End: 02-16-2024 Patient encounter procedure Yolanda X Orzech [facility] Start: 02-15-2024 End: 02-15-2024 ambulatory [facility] Start: 12-01-2023 ambulatory [facility] Start: 08-25-2023 End: 08-25-2023 ambulatory [facility] Facility:[facility] Start: 07-29-2023 Orders Only Evelyn Black RN Gen eral Surgery Comment on above: Gastroparesis (Prima ry Dx) Start: 07-22-2023 End: 07-22-2023 ambulatory MARQUES BRADLEY Facility:[facility] Start: 07-22-2023 Telephone encounter Evelyn Black RN General Surgery Start: 07-22-2023 End: 07-22-2023 Nutrition therapy Melissa Montalvo RD Work Phone: General Surgery Comment on above: Gastroparesis (Prima ry Dx); Malnutrition of moderate degree (HCC); Gastro-esophageal reflux disease without esophagitis; Overweight (BMI 25.0-29.9); Dietary counseling and surveillance Start: 07-22-2023 End: 07-22-2023 Telemedicine consultation with patient Melissa Montalvo RD Work Phone: [facility] Start: 07-14-2023 End: 07-14-2023 ambulatory MARQUES BRADLEY Facility:[facility] Start: 07-14-2023 End: 07-14-2023 Subsequent hospital visit by physician Marques Bradley MD Work Phone: Gastroenterology Comment on above: Dysphagia, unspecifi ed type [R13.10] Start: 07-13-2023 End: 07-13-2023 ambulatory MARQUES BRADLEY Facility:[facility] Start: 05-27-2023 Telephone encounter Evelyn Black RN General Surgery Comment on above: Results Start: 05-26-2023 End: 05-26-2023 ambulatory MARQUES BRADLEY Facility:[facility] Start: 05-25-2023 End: 05-25-2023 ambulatory JOEL PANCHAL [facility] Facility:[facility] Start: 05-25-2023 End: 05-25-2023 Nursing evaluation of patient and report Nurse [facility] 2 Work Phone: Gastroenterology Comment on above: Nausea Start: 05-16-2023 Orders Only Evelyn Black RN Gen eral Surgery Comment on above: Nausea (Primary Dx); Dysphagia, unspecified type Start: 05-06-2023 End: 05-07-2023 ambulatory MARQUES BRADLEY Facility:[facility] Start: 05-02-2023 Telephone encounter Evelyn Black RN General Surgery Start: 04-26-2023 Telephone encounter Evelyn Black RN General Surgery Start: 04-21-2023 End: 04-21-2023 ambulatory Renny Omalley Other [employer] Other Start: 04-21-2023 Office outpatient vi sit 15 minutes Renny Omalley [facility] Gastroenter[facility] Start: 04-18-2023 Telephone encounter Evelyn Black RN General Surgery Comment on above: Review 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 Start: 04-07-2023 Telephone encounter Guillermo Martinez DO Work Phone: Gastroenterology Comment on above: Appointment Start: 04-05-2023 End: 04-05-2023 ambulatory Imad Asaad Other [employer] Other Start: 04-05-2023 Telephone encounter Imad Asaad [facility] Start: 03-29-2023 ambulatory Facility:[facility] Start: 03-26-2023 ambulatory Facility:[id number] Start: 03-26-2023 ambulatory Facility:[id number] Start: 03-24-2023 End: 03-24-2023 ambulatory Imad Asaad Other [employer] Other Start: 03-24-2023 Telephone encounter Imad Asaad [facility] Start: 03-23-2023 End: 03-23-2023 Emergency department patient visit CONSUMER EDUCATOR-C Judi Youssef Work Phone: [facility] Work Phone: Start: 03-22-2023 End: 03-22-2023 ambulatory Imad Asaad Other [employer] Other Start: 03-22-2023 Telephone encounter Imad Asaad [facility] Start: 03-09-2023 End: 03-09-2023 ambulatory Imad Asaad Other [employer] Other Start: 03-09-2023 Telephone encounter Imad Asaad [facility] Start: 03-01-2023 End: 03-01-2023 ambulatory Imad Asaad Other [employer] Other Start: 03-01-2023 Telephone encounter Imad Asaad [facility] Start: 02-19-2023 End: 02-19-2023 Emergency department patient visit Zabrina Patton [facility] Start: 02-15-2023 End: 02-15-2023 Emergency department patient visit CONSUMER EDUCATOR-C Judi Youssef Work Phone: [facility] Work Phone: Start: 11-30-2022 End: 12-01-2022 ambulatory JUDI YOUSSEF Facility:[facility] Start: 11-27-2022 End: 11-28-2022 ambulatory JUDI YOUSSEF Facility:[facility] Start: 11-26-2022 End: 11-26-2022 ambulatory Imad Asaad Other [employer] Other Start: 11-26-2022 Telephone encounter Imad Asaad [facility] Start: 11-04-2022 End: 11-04-2022 Admission to same day surgery center CONSUMER EDUCATOR-C Judi Youssef Work Phone: [facility]-CT Scan [facility] Work Phone: Start: 11-04-2022 End: 11-04-2022 ambulatory CONSUMER EDUCATOR-C Judi Youssef Work Phone: [facility] Work Phone: Start: 11-01-2022 End: 11-02-2022 ambulatory JUDI YOUSSEF Facility:[facility] Start: 10-26-2022 End: 10-26-2022 Emergency department patient visit CONSUMER EDUCATOR-C Judi Youssef Work Phone: [facility] Work Phone: Start: 09-21-2022 End: 09-21-2022 ambulatory JUDI YOUSSEF Facility:[facility] Start: 09-18-2022 End: 09-18-2022 ambulatory BALTAZAR GEORGES . Facility:[facility] Start: 09-14-2022 End: 09-14-2022 ambulatory EUN WILSON . Facility:[facility] Start: 09-07-2022 End: 09-07-2022 ambulatory Imad Asaad Other [employer] Other Start: 09-07-2022 Telephone encounter Imad Asaad [facility] Start: 09-06-2022 End: 09-07-2022 ambulatory JUDIJOSE MANUEL UGALDEMER Facility:[facility] Start: 08-20-2022 End: 08-20-2022 ambulatory BALTAZAR GEORGES . Facility:[facility] Start: 08-17-2022 End: 08-18-2022 ambulatory JUDI MIKAEL Facility:[facility] Start: 08-11-2022 End: 08-12-2022 ambulatory JUDI YOUSSEF Facility:[facility] Start: 08-08-2022 End: 08-08-2022 ambulatory KATHRIN VANCE Facility:[facility] Start: 07-22-2022 End: 07-22-2022 Patient encounter procedure Ospinanoemi FORBES [facility] Start: 07-21-2022 End: 07-21-[address] NORA WINN Facility:[facility] Start: 07-15-2022 ambulatory JUDI YOUSSEF Facility: [facility] Start: 07-12-2022 Encounter for genera l adult medical examination without abnormal findings JUDI YOUSSEF [facility] Start: 07-08-2022 End: 07-09-2022 ambulatory [...] End: 04-29-2022 Lab Drop off Anai FORBES [facility] Start: 04-14-2022 End: 04-14-2022 Patient encounter procedure Monique Marquez [facility] Start: 03-27-2022 End: 03-30-2022 Evaluation and management of inpatient SHAIKH Juan Luis DAVIS Facility:[facility] Start: 03-01-2022 End: 03-01-2022 Patient encounter procedure Monique Marquez [facility] Start: 02-02-2022 End: 02-02-2022 ambulatory BALTAZAR GEORGES . Facility: Start: 01-28-2022 End: 01-28-2022 Patient encounter procedure Monique Marquez [facility] Start: 01-11-2022 End: 01-11-2022 Patient encounter procedure Anai FORBES [facility] Start: 12-24-2021 End: 12-24-2021 Patient encounter procedure JHOANA MELGOZA [facility] Start: 08-13-2019 End: 08-16-2019 Evaluation and management of inpatient LEONA MORTENSEN Facility:[facility] Procedures Date Procedure Procedure Detail Performing Clinician [...] Hodge MD Work Phone: Start: 05-11-2024 Esophagogastroduodenoscopy CONSUMER EDUCATOR-C Judi morales Work Phone: Start: 07-14-2023 Esophagoscp rig transoral hypopharynx crv esoph Evelyn Black RN Start: 05-25-2023 Esophageal motility study w/interp&rpt Evelyn Black RN Start: 03-23-2023 Computed tomography of abdomen and pelvis with contrast CONSUMER EDUCATOR-C Judijose manuel Youssef Work Phone: Start: 02-15-2023 Computed tomography of abdomen and pelvis with contrast CONSUMER EDUCATOR-C Judi Mikael Work Phone: Start: 11-04-2022 CT of small intestine CONSUMER EDUCATOR-C Judi Mikael Work Phone: Start: 10-26-2022 Computed tomography of abdomen and pelvis with contrast CONSUMER EDUCATOR-C Judi Mikael Work Phone: Start: 01-11-2022 Esophagogastroduodenoscopy Anai FORBES Start: 05-13-2021 Esophagogastroduodenoscopy JHOANA PERR Y Start: 09-30-2020 Esophagogastroduodenoscopy JHOANA PERR Y Start: 03-13-2020 Colonoscopy Kulwant Hodge MD Work Phone: Start: 03-13-2020 Colonoscopy JHOANA MELGOZA Start: 01-30-2020 Esophagogastroduodenoscopy JHOANA PERR Y Start: 08-15-2019 FLUOROSCOPY OF UPPER GI AND SMALL BOWEL USING OTHER CONTRAST ORESTES CONDON Start: 05-17-2019 Colonoscopy JHOANA MELGOZA Start: 05-17-2019 Esophagogastroduodenoscopy JHOANA Vázquez Start: 03-02-2019 Hernia surgical mesh (physical object) JHOANA MELGOZA Comment on above: Dr. Mortensen in [place]. Hernia repair JHOANA MELGOZA Hysterectomy JHOANA MELGOZA Plan of Treatment Date Care Activity Detail Author Start: 03-13-2030 Screening for malignant neoplasm of colon [facility] Start: 05-06-2025 Influenza vaccination Influenza Vaccine (Season Ended) [facility] Start: 04-01-2025 End: 04-01-2025 Patient encounter procedure 04/01/2025 9:40 AM EDT Office Visit [facility] [address] [place] [address] Eileen Fisher NP [address] [place], [place] [facility] Start: 02-07-2025 End: 02-07-2025 Clinical Support 02/07/2025 9:45 AM EDT Clini neeta Support [facility] [address] [facility] [place] [id number] [facility] Start: 01-07-2025 End: 01-07-2025 Patient encounter procedure [facility] Comment on above: Arrived Start: 01-07-2025 End: 01-07-2026 CBC W Auto Differential panel - Blood CBC auto differential Lab Routine Seizure ([facility]) Expected: 01/07/2025 (Approximate), Expires: 01/07/2026 [facility] Comment on above: Expected: 01/07/2025 (Approximate), Expi res: 01/07/2026 Start: 01-07-2025 End: 01-07-2026 Comprehensive metabolic 2000 panel - Serum or Plasma Comprehensive metabolic panel Lab Routine Seizure ([facility]) Expected: 01/07/2025 (Approximate), Expires: 01/07/2026 [facility] Work Phone: Comment on above: Expected: 01/07/2025 (Approximate), Expi res: 01/07/2026 Start: 01-07-2025 End: 01-07-2026 Levetiracetam level Levetiracetam level Lab Rout ine Seizure ([facility] [facility] Expected: 01/07/2025 (Approximate), Expires: 01/07/2026 [facility] Comment on above: Expected: 01/07/2025 (Approximate), Expi res: 01/07/2026 Start: 01-07-2025 End: 01-07-2026 Vestibular test (VNG) Vestibular test (VNG) Neurol ogy Routine Dizziness Expected: 01/07/2025 (Approximate), Expires: 01/07/2026 [facility] Comment on above: Expected: 01/07/2025 (Approximate), Expi res: 01/07/2026 Start: 12-18-2024 Bacteria identified in Urine by Culture Urine Culture [facility] Start: 12-18-2024 Urine culture [facility] Start: 11-29-2024 End: 11-29-2024 Patient encounter procedure 11/29/2024 11:00 AM EDT Office Visit [facility] [address] [place] [address] Kulwant Hodge MD [address] [place] [address] [facility] Start: 11-26-2024 End: 11-26-2025 Polysomnography Polysomnography [facility] Routine History of obstructive sleep apnea Migraine without aura and without status migrainosus, not intractable (CMS/HCC) Expected: 11/26/2024 (Approximate), Expires: 11/26/2025 [facility] Work Phone: Comment on above: Expected: 11/26/2024 (Approximate), Expi res: 11/26/2025 Start: 08-31-2024 End: 08-30-2025 Basic metabolic 2000 panel - Serum or Plasma Basic Metabolic Panel Lab Routine Ileus ([facility] Generalized abdominal pain Hypokalemia Expected: 08/31/2024, Expires: 08/30/2025 [facility] Comment on above: Expected: 08/31/2024, Expires: Start: 08-31-2024 End: 08-30-2025 Magnesium [Mass/volume] in Serum or Plasma Magnesium Lab Routine Ileus ([facility] Generalized abdominal pain Hypokalemia Expected: 08/31/2024, Expires: 08/30/[facility]25 [facility] Comment on above: Expected: 08/31/2024, Expires: Start: 08-17-2024 End: 08-17-2025 Radiologic exam swallow function contrast study FL MODIFIED BARIUM SWALLOW W VIDEO Imaging Routine Other dysphagia Expected: 08/17/2024, Expires: 08/17/2025 [facility] Comment on above: Expected: 08/17/2024, Expires: Start: 08-17-2024 End: 08-17-2024 Egd transoral biopsy single/multiple ESOPHAGOGASTRODUODENOSCOPY BIOPSY Other dysphagia 08/17/2024 12:58 PM [facility] Start: 07-13-2024 End: 07-13-2024 Patient encounter procedure [facility] Comment on above: Arrived Start: 06-22-2024 Shingles vaccine (2 of 2) Shingles vaccine (2 of 2) [facility] Start: 06-20-2024 End: 06-20-2025 Basic metabolic 1998 panel - Serum or Plasma Basic metabolic panel Lab Routine Hypoglycemia Expected: 06/20/2024 (Approximate), Expires: 06/20/2025 [facility] Comment on above: Expected: 06/20/2024 (Approximate), Expi res: 06/20/2025 Start: 06-20-2024 End: 06-20-2025 C peptide [Mass/volume] in Serum or Plasma --fasting C PEPTIDE FASTING Lab Routine Hypoglycemia Expected: 06/20/2024 (Approximate), Expires: 06/20/2025 [facility] Work Phone: Comment on above: Expected: 06/20/2024 (Approximate), Expi res: 06/20/2025 Start: 06-20-2024 End: 06-20-2025 Hepatic function 2000 panel - Serum or Plasma Hepatic function panel Lab Routine Hypoglycemia Expected: 06/20/2024 (Approximate), Expires: 06/20/2025 [facility] Comment on above: Expected: 06/20/2024 (Approximate), Expi res: 06/20/2025 Start: 06-20-2024 End: 06-20-2025 Insulin, fasting Insulin, fasting Lab Routine Hypoglycemia Expected: 06/20/2024 (Approximate), Expires: 06/20/2025 [facility] Comment on above: Expected: 06/20/2024 (Approximate), Expi res: 06/20/2025 Start: 06-20-2024 End: 06-20-2025 Insulin-like growth factor 2 Insulin-like growth factor 2 Lab Routine Hypoglycemia Expected: 06/20/2024 (Approximate), Expires: 06/20/2025 [facility] Comment on above: Expected: 06/20/2024 (Approximate), Expi res: 06/20/2025 Start: 06-20-2024 End: 06-20-2025 Proinsulin Proinsulin Lab Routine Hypoglycemia Expected: 06/20/2024 (Approximate), Expires: 06/20/2025 [facility] Comment on above: Expected: 06/20/2024 (Approximate), Expi res: 06/20/2025 Start: 05-11-2024 [facility] Start: 05-06-2024 COVID-19 Vaccine ( season) [facility] Start: 05-06-2024 Influenza vaccination Influenza Vaccine (#1) [facility] Start: 04-05-2024 Influenza vaccination Flu [facility] (#1) [facility] Start: 05-06-2023 Covid-19 Vaccine () Covid-19 Vaccine () [facility] Start: 05-06-2023 Influenza vaccination [facility] Start: 09-05-2022 DEPRESSION ASSESSMENT DEPRESSION ASSESSMENT [facility] Start: 01-01-2022 COVID-19 VACCINE (4 - Pfizer series) COVID-19 VACCINE (4 - Pfizer series) [facility] Start: 2020 SHINGRIX VACCINE (1 of 2) SHINGRIX VACCINE (1 of 2) [facility] Start: 2015 COLOGUARD (FIT-DNA) COLOGUARD (FIT-DNA) [facility] Start: 2015 Colonoscopy COLONOSCOPY [facility] Start: 2015 COLORECTAL CANCER SCREENING COLORECTAL CANCER SCREENING [facility] Start: [address] COLONOGRAPHY [facility] Start: 2015 DIABETES SCREEN DIABETES SCREEN [facility] Start: 2015 Diabetes Screening Diabetes Screening [facility] Start: 2015 FECAL OCCULT BLOOD FECAL OCCULT BLOOD [facility] Start: 2015 Lipid 1996 panel - Serum or Plasma Lipid Screening [facility] Start: 2015 LIPID SCREEN LIPID SCREEN [facility] Start: 2015 Screening for malignant neoplasm of colon [facility] Start: 2015 SIGMOIDOSCOPY SIGMOIDOSCOPY [facility] Start: 2010 Lipid panel Lipids [facility] Start: 2010 Mammography [facility] Start: 2010 Screening for malignant neoplasm of breast [facility] Start: 2005 Diabetes screen Diabetes screen [facility] Start: 2000 HPV TESTING HPV TESTING [facility] Start: 2000 Screening for malignant neoplasm of cervix [facility] Start: 1991 PAP TESTING PAP TESTING [facility] Start: 1991 Screening for malignant neoplasm of cervix Pap Smear [facility] Start: 1989 DTaP/Tdap/Td vaccine (1 - Tdap) DTaP/Tdap/Td vaccine (1 - Tdap) [facility] Start: 1989 Hepatitis B vaccine (1 of 3 - 19+ 3-dose series) Hepatitis B vaccine (1 of 3 - 19+ 3-dose series) [facility] Start: 1989 Urine microalbumin profile [facility] Start: 1988 HEPATITIS C SCREENING HEPATITIS C SCREENING [facility] Start: 1988 Hepatitis C screening Hepatitis C screen [facility] Start: 1988 HIV SCREENING HIV SCREENING [facility] Start: 1985 HIV screening HIV screen [facility] Start: 1982 Depression Monitoring Depression Monitoring [facility] Start: 1982 Depression Screen Depression Screen [facility] Start: 1970 COVID-19 VACCINE (#1) COVID-19 VACCINE (#1) [facility] Start: 1970 HEPATITIS B (1 of 3 - 3-dose series) HEPATITIS B (1 of 3 - 3-dose series) [facility] Start: 1970 Hepatitis B Vaccine (1 of 3 - 3-dose series) Hepatitis B Vaccine (1 of 3 - 3-dose series) [facility] Start: 1970 Screening for malignant neoplasm of colon [facility] End: 09-18-2024 Basic Metabolic Panel w/ Reflex to MG Basic Metabolic Panel w/ Reflex to MG Lab Routine Daily for 3 Weeks starting 08/29/2024 until 09/18/2024, 2 [facility] Comment on above: Daily for 3 Weeks starting 08/29/2024 un til 09/18/2024, 2 completed End: 09-18-2024 CBC W Auto Differential panel - Blood CBC with Auto Differential Lab Routine Daily for 3 Weeks starting 08/29/2024 until 09/18/2024, 2 completed [facility] Comment on above: Daily for 3 Weeks [...] Routine 4X Daily until discontinued starting 08/28/2024 [facility] Comment on above: 4X Daily until discontinued starting Oxygen therapy [Minimum Data Set] Initiate Oxygen Therapy Protocol Respiratory Care Routine As Needed until discontinued starting 08/17/2024 [facility] Work Phone: Comment on above: As Needed until discontinued starting Oxygen therapy [Minimum Data Set] Initiate Oxygen Therapy Protocol Respiratory Care Routine As Needed until discontinued starting 08/28/2024 [facility] Work Phone: Comment on above: As Needed until discontinued starting Patient Education [facility] Work Phone: Patient referral [facility] Work Phone: SURGICAL PATHOLOGY [facility] Work Phone: Comment on above: Release Upon Ordering for 1 Occurrences starting 07/14/2023, 1 completed [facility] Immunizations Immunization Date Immunization Notes Care Provider Jamal jackson 04-27-2024 zoster vaccine recombinant Kulwant Hodge MD Work Phone: [facility] 06-15-2022 SARS-CoV-2 (COVID-19 ) [id number] Yolanda Lou [facility] 06-09-2022 influenza, seasonal, injectable Kulwant Hodge MD Work Phone: [facility] 06-09-2022 influenza virus vaccine, unspecified formulation Nurse 2 Work Phone: [facility] 03-18-2022 SARS-CoV-2 mRNA (qkqwuawisjn-[id number] jett) vaccine Ospina SALAM [facility] 11-06-2021 SARS-CoV-2 (COVID-19 ) mRNA BNT-162b2 vax Ospina SALAM [facility] 05-06-2021 influenza virus vaccine, unspecified formulation JHOANA MELGOZA [facility] 02-26-2021 SARS-CoV-2 (COVID-19 ) mRNA BNT-162b2 vax JHOANA MELGOZA [facility] 02-05-2021 SARS-CoV-2 (COVID-19 ) mRNA BNT-162b2 vax Ospina SALAM [facility] Comment on above: Result Comment: 2021: [id number] NEGATED: Highlighted row has not occurred!04-14-2022 influenza virus vaccine, unspecified formulation Monique Marquez [facility] Payers Date Payer Category Payer Blue Cross Blue Shield BCBS [id number] 2022 Unknown RINA FLORESITA EDDYMatthew SS PPO [id number] 2022-Present [phone] [address] [place] [address] PPO [id number] 2018 Private Health Insurance [id number] 2018 Private Health Insurance [facility] CHOICE PLUS [id number] 2018-Present [phone] [address] [place] [address] HMO [id number] 1970 Unknown [id number] 2.16.840.1.740714.3.579.2 .647 1970 Unknown [id number] 2.16.840.1.735342.3.579.2 .593 1970 Unknown [id number] 2.16.840.1.018505.3.579.2 .593 1970 Unknown [id number] 2.16.840.1.222003.3.579.2 .593 1970 Unknown [id number] 2.16.840.1.698703.3.579.2 .593 1970 Unknown [id number] 2.16.840.1.029598.3.579.2 .593 1970 Unknown [id number] 2.16.840.1.675642.3.579.2 .593 1970 Unknown [id number] 2.16.840.1.240415.3.579.2 .593 1970 Unknown [id number] 2.16.840.1.432881.3.579.2 .593 1970 Unknown [id number] 2.16.840.1.993701.3.579.2 .593 1970 Unknown [id number] 2.16.840.1.028045.3.579.2 .593 1970 Unknown [id number] 2.16.840.1.994501.3.579.2 .593 1970 Unknown [id number] 2.16.840.1.115102.3.579.2 .593 1970 Unknown [id number] 2.16.840.1.516750.3.579.2 .593 1970 Unknown [id number] 2.16.840.1.500126.3.579.2 .593 1970 Unknown [id number] 2.16.840.1.646252.3.579.2 .593 1970 Unknown [id number] 2.16.840.1.967769.3.579.2 .593 1970 Unknown [id number] 2.16.840.1.241260.3.579.2 .593 1970 Unknown [id number] 2.16.840.1.654161.3.579.2 .593 1970 Unknown [id number] 2.16.840.1.001851.3.579.2 .59 1970 Unknown [id number] 2.16.840.1.071495.3.579.2 .593 1970 Unknown [id number] 2.16.840.1.669004.3.579.2 .356 1970 Unknown [id number] 2.16.840.1.639886.3.579.2 .356 1970 Unknown [id number] 2.16.840.1.821863.3.579.2 .1286 1970 Unknown [id number] 2.16.840.1.585499.3.579.2 .1286 1970 Unknown [id number] 2.16.840.1.902253.3.579.2 .1286 1970 Unknown [id number] 2.16.840.1.985123.3.579.2 .1286 1970 Unknown [id number] 2.16.840.1.266457.3.579.2 .176 1970 Unknown [id number] 2.16.840.1.062103.3.579.2 .175 1970 Unknown [id number] 2.16.840.1.942209.3.579.2 .727 1970 Unknown [id number] 2.16.840.1.393190.3.579.2 .727 1970 Unknown [id number] 2.16.840.1.405021.3.579.2 .727 1970 Unknown [id number] 2.16.840.1.969953.3.579.2 .727 1970 Unknown [id number] 2.16.840.1.611171.3.579.2 .727 1970 Unknown [id number] 2.16.840.1.267521.3.579.2 .727 1970 Unknown [id number] 2.16.840.1.433145.3.579.2 .727 1970 Unknown [id number] 2.16.840.1.210701.3.579.2 .727 1970 Unknown [id number] 2.16.840.1.173586.3.579.2 .727 1970 Unknown [id number] 2.16.840.1.800882.3.579.2 .1259 1970 Unknown [id number] 2.16.840.1.040517.3.579.2 .1259 1970 Unknown [id number] 2.16.840.1.581476.3.579.2 .9 1970 Unknown [id number] 2.16.840.1.113702.3.579.2 .1259 1959 Medicaid [id number] 1959 Self-pay [id number] 1959 Unknown [id number] 1959 Unknown [id number] Medicare Medicare [id number] Medicare Medicare [id number] Unknown [id number] 2.16.840.1.270099.3.579.2 .531 Unknown [id number] 2.16.840.1.781590.3.579.2 .531 Unknown [id number] 2.16.840.1.915023.3.579.2 .531 Worker's Compensation [employer] [facility] [id number] Social History Date Type Detail Facility Start: 12-03-2021 End: 07-13-2024 Tobacco smoking status Ex-smoker (finding) [facility] [place] Start: 08-12-2020 End: 01-07-2025 Sex Assigned At Female [facility] [place] Tobacco smoking status Never [facility] Start: 1970 Sex Assigned At Female [facility] End: 09-05-2011 History of tobacco use Current smoker [facility] Work Phone: End: 09-05-2011 History of tobacco use Cigarette Smoker [facility] Work Phone: Start: 04-28-2018 End: 07-13-2024 Tobacco use and exposure Smokeless tobacco non-user [facility] Work Phone: Start: 04-28-2018 End: 08-28-2024 Alcohol intake Current drinker of alcohol (finding) [facility] Start: 08-12-2020 End: 01-07-2025 History of Social function [facility] Start: 04-28-2018 End: 05-06-2023 Tobacco Comment still smokes [facility] Start: 04-28-2018 Alcohol Comment social [facility] Start: 1970 Sex Assigned At Not on file [facility] Start: 07-14-2023 Alcohol intake Ex-drinker (finding) [facility] Start: 06-08-2024 [facility] Start: 07-13-2024 End: 01-07-2025 Alcoholic beverage intake Lifetime non-drinker (finding) [facility] Start: 08-15-2024 Alcohol Comment Rare [employer] Has the [employer] [facility] s, oil, or water company threatened to shut off services in your home in past 12Mo No [facility] How often to you hav e a drink containing alcohol? Never [facility] (I/We) worried wheth er (my/our) food would run out before (I/we) got money to buy more. Never true [facility] Start: 04-16-2025 Sex Female (finding) [facility] Goals Date Patient Goal Desired Activity /State Functional Status Date Assessment Result Facility 10-19-2024 Functional Status N/A [facility] 10-19-2024 Functional Status [facility] 02-16-2024 Functional Status N/A [facility] [place] 02-19-2023 Functional Status N/A [facility] 07-22-2022 Functional Status N/A [facility] 04-14-2022 Functional Status N/A [facility] Clinical Notes 12-02-2021 to 01-11-2025 EUN Ashraf - 01/07/2025 2:20 PM EDT Note Date & Type Note Facility 01-11-2025 Note I was informed that the insurance declined treadmill nuclear stress test. Actually I wanted to order only routine treadmill stress test. Therefore I will switch the current order to only regular treadmill stress test [facility] 01-07-2025 History of Present illness Narrative Images from the original note were not included. Subjective Constantino Cardoso is a 54 y.o. year old female Chief Complaint Patient presents with Seizures Past Medical History: Diagnosis Date Acute diverticulitis Dyskinesia of esophagus History of hysterectomy Mitral valve prolapse Past Surgical History: Procedure Laterality Date GALLBLADDER HERNIA REPAIR HYSTERECTOMY Family History Problem Relation Name Age of Onset Cancer Father Hypertension Sister Diabetes Sister Thyroid disease Sister Alcohol abuse Brother Alcohol abuse Son Social History Tobacco Use Smoking status: Former Types: Cigarettes Smokeless tobacco: Never Substance Use Topics Alcohol use: Never Medication Documentation Review Audit Reviewed by Sienna Murray MA (Manipulative Therapy Specialist) on 01/07/25 at 1424 Medication Order Taking? Sig Documenting Provider Last Dose Status acarbose (Precose) 25 MG tablet [id number] Take 1 tablet (25 mg) by mouth in the morning and 1 tablet (25 mg) before bedtime. Kulwant Hodge MD Active aspirin 81 MG EC tablet [id number] Take 81 mg by mouth Daily Historical Provider, Active cholecalciferol (Vitamin D-3) 50 MCG (1999) capsule [id number] Take 1 capsule by mouth Daily Kulwant Hodge MD Active dicyclomine (Bentyl) 20 MG tablet [id number] Take 1 tablet by mouth in the morning and 1 tablet in the evening and 1 tablet before bedtime. Kulwant Hodge MD Active hyoscyamine (Anaspaz,Levsin) 0.125 MG tablet [id number] Take 1 tablet by mouth every 6 (six) hours if needed Kulwant Hodge MD Active levETIRAcetam (Keppra) 750 MG tablet [id number] Take 1 tablet (750 mg) by mouth in the morning and 1 tablet (750 mg) before bedtime. EUN Ashraf Active lisinopril 20 MG tablet [id number] Take 20 mg by mouth Daily Kulwant Hodge MD Active metoprolol succinate XL (Toprol-XL) 50 MG 24 hr tablet [id number] Take 50 mg by mouth in the morning. Kulwant Hodge MD Active pantoprazole (ProtoNix) 40 MG EC tablet [id number] Take 40 mg by mouth in the morning. Take before meals. Kulwant Hodge MD Active sertraline (Zoloft) 50 MG tablet [id number] Take 50 mg by mouth in the morning. Kulwant Hodge MD Active Patient is here today for follow-up of seizure like activity, stroke like symptoms, and migraine. I am following the plan of care established by the physician who is present in the office today. HPI SEIZURE -increased keppra at last visit -denies any SE from the increase -denies any missed doses of medication -reports she believes she has had a few seizures since last visit -continues to feel out there -states she is having staring episodes, similar to what brought her initially to the hospital, at least a couple times a week . History of MAYA -has not had split night done, states she has not heard anything -does not sleep well at night -trouble falling and staying asleep -uses melatonin -averages 5 hours -does not wake feeling rested . Migraines -reports pain in her head but states it is not a headache -located above the eyes . NEW: Dizziness -patient notes dizziness episodes that began around the time of her hospitalization -described as both lightheadedness and vertigo -states she has had vertigo in the past -denies numbness tingling in her legs -symptoms come in episodes -can occur a couple times a week -states she drinks a lot of water daily ROS Review of Systems Constitutional: Positive for fatigue. Respiratory: Negative. Cardiovascular: Negative. Gastrointestinal: Negative. Musculoskeletal: Negative. Neurological: Positive for dizziness, seizures and headaches. Objective Visit Vitals BP (!) 142/92 Pulse 52 Resp 16 Ht 5' 7 Wt 188 lb SpO2 98% BMI 29.44 kg/m Smoking Status Former BSA 2.01 m Neurological Exam Mental Status Awake, alert and oriented to person, place and time. Recent and remote memory are intact. Speech is normal. Language is fluent with no aphasia. Attention and concentration are normal. Fund of knowledge is appropriate for level of education. Cranial Nerves CN II: Visual acuity is normal. Visual wolff full to confrontation. CN III, IV, : Extraocular movements intact bilaterally. Normal lids and orbits bilaterally. Pupils equal round and reactive to light bilaterally. CN V: Facial sensation is normal. CN VII: Full and symmetric facial movement. CN VIII: Hearing is normal. CN IX, X: Palate elevates symmetrically CN XI: Shoulder shrug strength is normal. CN XII: Tongue midline without atrophy or fasciculations. Motor Normal muscle bulk throughout. Normal muscle tone. No abnormal involuntary movements. Gait Casual gait is normal including stance, stride, and arm swing. Motor Examination RUE Strength deltoid, biceps, triceps, wrist extensors, wrist extensors, wrist flexor, cotton bag sewer strength 5/5. LUE Strength deltoid, biceps, triceps, wrist extensors, wrist extensors, wrist flexor, cotton bag sewer strength 5/5. RLE Strength illopsoas, quadriceps, tibialis anterior, and gastrocnemius strength 5/5. LLE Strength illopsoas, quadriceps, tibialis anterior, and gastrocnemius strength 5/5. Tone Normal tone x4 extremities. Reflexes: RUE biceps reflex 2, brachioradialis reflex 2 LUE biceps reflex 2, brachioradialis reflex 2 RLE knee reflex 2, ankle reflex 2 LLE knee reflex 2, ankle reflex 2 Heart: Regular rate and rhythm No nystagmus noted Assessment and Plan Diagnoses and all orders for this visit: Seizure (CMS/HCC) Patient was evaluated at [facility] 10/20/2024 for stroke like symptoms manifested as staring off into space, bilateral LE weakness, and headache. She had brain MRI, head CT, and MRA of the head and neck were nonacute. 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 She was started on Keppra. She has had multiple staring episodes and episodes where she is non-responsive since her last appointment. This is happening a couple times a week per her report despite current keppra dose. She may have underlying MAYA that could be lowering seizure threshold. She has not heard anything regarding scheduling sleep study. History of obstructive sleep apnea Migraine without aura and without status migrainosus, not intractable (CMS/[facility]) She was also treated for migraine and started on aspirin for secondary stroke prevention given the stroke like symptoms. She reports significant daytime fatigue. She has history of MAYA reportedly and hasn't used her CPAP in a few years. She continues to snore and have daytime fatigue. She is willing to retry a CPAP. She has not heard anything to schedule the sleep study. NEW: Dizziness Patient reports dizziness manifested as both lightheadedness and room spinning sensation that began around the time of her hospitalization in October 2024. She reports a history of vertigo and feels it is a similar feeling. She did have brain MRI in the hospital that was nonacute. She also had MRA of the head as noted below with focal area of signal loss of the right carotid artery at the skull base thought to likely be artifactual rather than a moderate stenosis. Testing review from [facility] 10/20/[address]: revealed no acute findings Brain MRI: revealed no acute intracranial process. Chronic atrophic and involutional changes. MRA of the head: probably negative head MRA. Focal area of signal loss of the right carotid artery at the skull base probably artifactual rather than a moderate stenosis, as is mild focal area of signal loss within the anterior aspect of the right cavernous carotid. 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 Seizure precautions discussed at length. No driving. No tub bathing. No swimming alone. No swimming in lakes or ponds. No babysitting small children and can call 911. No working from heights. No operating heavy equipment. I counseled patient on potential medication side effects Patient to follow up with this clinic in 6-8 weeks or sooner for new or worsening symptoms Nikki Ayoub PA-C documented in this encounter [facility] 12-28-2024 Note [facility] Note Reason for cardiology visit: Patient here for follow up HPI: 12/28/2024 Patient is here today for follow-up visit. She reports that on 12/18/2024 she went to the emergency room because of difficulty of swallowing which she had in the past. She reports occasional little substernal gastric pain which can occur with or without exertion and usually lasts about 5 minutes, no radiation, no other associated symptoms. It is not related to eating meals. She admits occasional exertional dyspnea which not changed from his her baseline. She denies orthopnea or paroxysmal nocturnal dyspnea or dizziness or palpitations or legs edema 09/17/2024 The patient reports that she has [...] Hypertension, and NSVT (nonsustained ventricular tachycardia) (CMS/[facility]ERLY [facility]). Surgical History She has a past surgical history that includes Hernia repair; Cholecystectomy; Hysterectomy; and Abdominal surgery. Social History She reports that she has quit smoking. Her smoking use included cigarettes. She has never used smokeless tobacco. She reports current alcohol use. She reports that she does not use drugs. Family History Family History Problem Relation Name Age of Onset Heart attack Father Coronary artery disease Brother Allergies Cyclobenzaprine and Penicillins Medications Current Outpatient Medications: acarbose (Precose) 25 mg tablet, Take 1 tablet by mouth in the morning and at bedtime., Disp: , Rfl: levETIRAcetam (Keppra) 750 mg tablet, Take 750 mg by mouth., Disp: , Rfl: lisinopril 10 mg tablet, Take 1 tablet (10 mg) by mouth in the morning., Disp: 30 tablet, Rfl: 11 metoprolol succinate XL (Toprol-XL) 50 mg 24 hr tablet, TAKE 1 TABLET (50 MG) BY MOUTH IN THE MORNING DO NOT CRUSH OR CHEW, Disp: 90 tablet, Rfl: 3 pantoprazole (ProtoNix) 40 mg EC tablet, Take 40 mg by mouth before breakfast., Disp: , Rfl: sertraline (Zoloft) 50 mg tablet, Take 50 mg by mouth in the morning., Disp: , Rfl: cholecalciferol, vitamin D3, 50 mcg (2,000 unit) capsule, in the morning., Disp: , Rfl: Last Recorded Vitals Visit Vitals BP (!) 150/91 (BP Location: Left arm, Patient Position: Sitting) Pulse 51 Ht 1.702 m (5' 7 ) Wt 83 kg (183 lb) SpO2 98% BMI 28.66 kg/m??? Smoking Status Former BSA 1.98 m??? Physical Examination: GENERAL: alert and oriented x3, well developed, in no acute distress. HEAD: atraumatic, normocephalic. EYES: TOMI, EOMI. NECK: trachea midline, no JVD present, no carotid bruits present. CARDIAC: S1, S2 present. RRR. No murmur, rubs, or gallops. RESPIRATORY: CTAB, no increased effort of breathing, no rales, rhonchi, or wheezing. ABDOMEN: soft, nontender, nondistended. EXTREMITIES: no lower extremity edema. (more content not included)... [facility] 10-21-2024 Note Discharge Summary Admission and Discharge [...] be reviewed and discussed with PCP or kindergarten paraprofessional MD once the hospital multiple drill operator is able to reach him/her. I [...] made to ensure accuracy, however, inadvertently computerized concrete pouring supervisor mistakes may be present. Services Consulted Consult to Neurology - Ordered -- 10/19 (more content not included)... [facility] Comment on above: Result Comment: Elec tronically Signed By: Guerline WALLS\.br\Date and Time Signed: 10/20/24 16:06 EST\.br\Electronically Co-Signed By: Eliezer Lorenzo DO\.br\Date and Time Co-Signed: 10/21/24 15:34 EST 10-20-2024 Hospital Discharge instructions Patient Education 10/20/2024 15:59:25 Seizure, Adult, Amss-cs-Sxih Seizure, Adult A seizure is a sudden [...] like you saw or heard something before (jorge gordillo). Odd tastes or smells. Changes in [...] Follow these instructions at home: Medicines Take tgke-hhs-dizjdza and prescription medicines only as told by [...] medicines are used to treat seizures. Take vjsp-xvb-rkxccpu and prescription medicines only as told by your doctor. This information is not intended to replace advice given to you by your health care provider. Make sure you discuss any questions you have with your health care provider. Document Revised: 02/25/2021 Document Reviewed: 02/27/2021 [employer] Patient Education 2023 [employer]. 10/20/2024 11:40:02 Vitamin B12 Deficiency, Byrt-zw-Kvfw Vitamin B12 Deficiency Vitamin B12 deficiency means [...] as clams, rainbow trout, salmon, tuna, and mroelia. ?Eggs. ?Dairy foods such as milk, yogurt, [...] provider. Document Revised: 04/16/2022 Document Reviewed: 04/16/2022 [employer] Patient Education 2023 [employer]. 10/20/2024 11:40:02 Vitamin D Deficiency, Mlcb-yi-Ahjt Vitamin D Deficiency Vitamin D deficiency is [...] dietitian for more information. General instructions Take fbwi-gih-gtzomav and prescription medicines only as told by [...] provider. Document Revised: 2022 Document Reviewed: 2022 [employer] Patient Education 2023 [employer]. 10/20/2024 11:40:02 Vitamin D Test Vitamin D [...] including vitamins, herbs, eye drops, creams, and pzcm-gkj-mygjray medicines. Any bleeding problems you have. Any [...] provider. Document Revised: 2022 Document Reviewed: 2022 [employer] Patient Education 2023 [employer]. 10/20/2024 11:40:02 Migraine Headache, Mlis-rv-Vpmo Migraine Headache A migraine headache is a [...] Follow these instructions at home: Medicines Take inpj-cxc-cqvdsnq and prescription medicines only as told by [...] for Headache and Migraine Patients (CHAMP): headachemigraine.org [place] Migraine Foundation: americanmigrainefoundation.org National Headache Foundation: headaches.org [...] provider. Document Revised: 04/18/2023 Document Reviewed: 04/18/2023 [employer] Patient Education 2023 [employer] Follow Up Care 10/19/2024 17:04:31 With:JUDI YOUSSEF Address: [facility] [place] [address]- [phone] Business (1) When:1 to 2 days With:Bradford Rush BAKER NEU Address: [facility] [place] [address]- When:2 to 4 weeks [facility] 10-20-2024 Note Patient Education - Text [...] provider. Document Revised: 04/16/2022 Document Reviewed: 04/16/2022 [employer] Patient Education ? 2023 [employer]. Neurology Seizure, Adult A seizure is a [...] problems. ??? Conditions (more content not included)... [facility] 10-20-2024 Evaluation + Plan note Extrac jun [...] deep vein thrombosis (DVT) prophylaxis (Z79.899: Other salvage determiner (current) drug therapy) Abdominal pain (R10.9: Unspecified abdominal pain) Extracted from: Title:Admission H & P Author:Yovanny WALLS enee Date:10/19/24 Awaiting [facility] rec for all dx. 1. Stroke-like symptoms [...] deep vein thrombosis (DVT) prophylaxis (Z79.899: Other fci (current) drug therapy) -Lovenox, early ambulation Orders: [...] made to ensure accuracy, however, inadvertently computerized concrete pouring supervisor mistakes may be present. Extracted from: Title:ED [...] Hospitalist for continued care NIH Stroke Scale [facility] [id number] NoteInterdisciplinary Note - PT PT Evaluation completed with an [facility] of . Pt was Independent for bed mobility and transfers. Pt was able to ambulate at Mod I level due to right bone pain from a previous fall on ice. Pt performing well this date. No further PT services neededAs[facility]02-[facility] NotePatient Education - Text Gastroenterology Vitamin B12 [...] provider. Document Revised: 04/16/2022 Document Reviewed: 04/16/2022 [employer] Patient Education ? 2023 [employer] Neurology Migraine Headache A migraine headache [...] chest pain (nitrogl (more content not included)... [facility]02-15-2025 NoteConsultation Note Chief Complaint stroke Reason for [...] light touch on the right. Cerebellar exam: Kvbnko-zm-szxf reveals no ataxia. Gait is deferred. The neurological exam was performed by a healthcare professional which was witnessed and supervisedby me via video telemedicine visit consented to by the patient or appropriate patient contact center representative. Date/Time:10/20/24 0771 Level of Consciousness: Alert = 0 Current month and age: Answers both correctly = 0 Open and close eyes/cotton bag sewer release hand: Obeys both correctly = 0 [...] reviewed with the patien (more content not included)...[facility] CenterComment on above:Result Comment: Electronically Signed By: Diana Stevens RN\.br\Date and Time Signed: 10/20/24 07:52 EST\.br\Electronically Co-Signed By: Rush Padilla MD\.br\Date and Time Co-Signed: 10/20/24 10:24 [id number] NoteHistory and Physical Chief Complaint To ED [...] both correctly = 0 Open and close eyes/cotton bag sewer release hand: Obeys both correctly = 0 [...] 17:06:00) Lymph Auto: 33.3 % (10/19/24 17:06:00) [place] Auto: 7.2 % (10/19/24:06:00) Eos Auto: 3.9 % (10/19/24:06:00) Basophil Auto: 0.6 % (10/19/24:06:00) Neutro Absolute: 2.9 E9/L (10/19/24:06:00) Lymph Absolute: 1.8 E9/L (10/19/24:06:00) [place] Absolute: 0.4 E9/L (10/19/24:06:00) Eos Absolute: 0.2 E9/L (10/19/24:06:00) Basophil Absolute: 0 E9/L (10/19/24:06:00) PT: 10.7 second(s) (10/19/24:06:00) INR: 0.96 (10/19/24:06:00) PTT: 40.8 second(s) High (10/19/24:06:00) Glucose Lvl: 107 mg/dL (10/19/24:06:00) BUN: 22 mg/dL High (10/19/24:06:00) Creatinine: 0.8 mg/dL (10/19/24:06:00) eGFR: 87 mL/min/1.73 m2 (10/19/24:06:00) BUN/Creat Ratio: 28 High (10/19/24:06:00) Sodium Lvl: 140 mmol/L (10/19/24:06:00) Potassium Lvl: 3.4 mmol/L Low (10/19/24:06:00) Chloride: 110 mmol/L (10/19/24:06:00) CO2: 24 mmol/L (10/19/24:06:00) AGAP: 9 mEq/L (10/19/24:06:00) Calcium Lvl: 8.9 mg/dL (10/19/24 17:06:00) Alk Phos: 120 Int._Unit/L High (10/19/24 17:06:00) ALT: 11 Int._Unit/L (10/19/24 17:06:00) AST: 14 Int._Unit/L (10/19/24 17:06:00) Total Protein: 6.3 gm/dL (10/19/24 17:06:00) Albumin Lvl: 3.9 gm/dL (10/19/24 17:06:00) Globulin: 2.4 gm/dL (10/19/24 17:06:00) A/G Ratio: 1.6 (10/19/24 17:06:00) Bili Total: 0.4 mg/dL (10/19/24 17:06:00) Magnesium: 1.9 mg/dL (10/19/24 17:06:00) Troponin HS: 10.8 pg/mL (10/19/24 17:06:00) Glucose Cap: 93 mg/dL (10/19/24 17:10:00) POC Device SN: [id number] (10/19/24 17:10:00) POC User ID: [id number] (10/19/24 17:10:00) POC Username: POC Userna (more content not included)...[facility] CenterComment on above:Result Comment: Electronically Signed By: Guerline [...] Arrhythmia, Hypertension, and NSVT (nonsustained ventricular tachycardia) ([facility]). Surgical History She has a past surgical [...] 08/14/2019 HCT 31.2 (L) (more content not included)...[facility] 08-30-2024 History of Present illness Narrative* [...] and confirmed. Serge Wild MD * Sumeet Mayberry, PT - 08/29/2024 10:11 AM EST Physical Therapy Facility/Department: [facility] RENAL//MED SURG Physical Therapy Initial [...] this morning. 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 [facility] Internal Medicine Teaching Residency Program Inpatient Daily Progress Note Patient: Constantino Cardoso Date of : 1970 Acct: [id number] Room: [id number] Admit date: 08/28/2024 Today's date: 08/29/24 Number [...] Hypertension Gastroparesis and dysphagia - G-POEM at [facility] in 08/27 Mitral valve prolapse GERD Migraines and severe obeisty - s/p Bwzr-iw-S-bypass 2018 presents with a chief complaint of abdominal pain and nausea and vomiting. Patient informs that shehas had recurrent episodes of ileus -approximately around 5. This episode started with mild epigastric abdominal pain at home a week ago. Pain continued along with gradual worsening of abdominal distention. She did open her bowels 2 days ago - formed stool and small amount this morning. 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 She had x-ray KUB and was [...] Problem: Intestinal obstruction (HCC) CT scan at [facility] -dilated large bowel with air-fluid level Transferred to [facility] -x-ray KUB: Nonobstructive bowel gas pattern, [...] Juan Dhaliwal MD Internal Medicine Resident, PGY-1 [facility]; [place], [place] 08/29/2024, 6:54 AM Associated attestation - [...] this chart was generated using voice recognition [employer] dictation software. Although every effort was made to ensure the accuracy of this automated concrete pouring supervisor, some errors in concrete pouring supervisor may have occurred. * Serge Wild MD [...] Serge Wild MD [facility] Discharge instructions* Discharge Instructions* Sky Pearce [...] sent through Care Everywhere. * Bowel Obstruction (Ethiopian) documented in this encounterBon [facility] Hospital Discharge instructions* Discharge Instructions* Larisa Jean RN - 08/17/2024 1:26 PM [...] if your caregiver approves them. Only take wped-fsw-pejbehx or prescription medicines for pain, discomfort, or [...] Document Reviewed: 12/20/2012 ExitCare Patient Information 2013 [place] .EGD DISCHARGE INSTRUCTIONS Activity: Rest today. No [...] or neck pain documented in this encounterBon [facility]11[facility] History of Present illness Narrative* Kulwant Hodge [...] 3 months (around 10/13/2024). documented in this encounterN[facility] [id number] History of Present illness Narrative* Kulwant Hodge MD - 06/20/2024 10:50 AM EDT Constantino Cardoso is a 54 y.o. female Kulwant Hodge MD presents with chief complaint of Hypoglycemia (NEW) HPI: HPI: 06/2024 New patient sent from [facility] for episodes of hypoglycemia, A1c in our [...] 3 weeks (around 07/11/2024). documented in this encounterNortheast Missouri [facility] Health [id number] [facility] Note Reason for [...] due to vasovagal r (more content not included)...[facility] 05-11-2024 Procedure [facility]08-22-2024 Evaluation note* Author Jennie Ayon [facility] Authored April 26, 2024 9: 26am 53-year-old [...] three times daily if needed. [facility] Work Phone: [phone]) 117-549007-15-2024 NoteBellevue [facility] Note Reason for [...] hiatal hernia and acid (more content not included)...[facility] 02-16-2024 Evaluation + Plan note Diagnostic Tests Pending * Urine Culture 02/16/24 [facility]06-12-2024 [facility] Note Reason [...] valve prolapse, and NSVT (nonsustained ventricular tachycardia) ([facility]). Surgical History She has a past surgical [...] 04/30/2019 PROT 6.3 08/ (more content not included)...[facility] 08-25-2023 NoteHNO ID: [id number] Author: Ellis Mayberry DO Service: ? Author [...] Successful intubation technique: video laryngoscopy Devices used: Microtune Endotracheal tube insertion site: oral Blade: Jake Blade size: #3 ETT size (mm): 7.0 Measured from: lips Measurement (cm): 22 Placement verified by: chest auscultation and capnometry Cormack-Lehane Classification: grade I - full view of glottis Number of attempts at approach: 1 Airway not difficult SIGNATURE: Ellis Mayberyr DO PATIENT NAME: Constantino Cardoso DATE: August 25, 2023 TIME: 2:59 PM [facility]N: [id number] NoteQ3 Patient Name: Constantino Cardoso Procedure Date: 08/25/2023 2:38 PM Date of : 1970 Admit Type: Outpatient Age: 53 Gender: Female Note Status: Finalized Attending MD: Marques Bradley MD, [id number] Procedure: Upper GI endoscopy Indications: Gastroparesis- for [...] the patient. Procedure Code(s): --- Professional --- 44355 Diagnosis Code(s): --- Professional --- K44.9 Z98.890 CPT copyright 2020 [employer]. All rights reserved. Attending Participation: I personally performed the entire procedure. Scope In: 2:59:10 PM Scope Out: 3:37:20 PM MD Marques Rainey MD 08/25/2023 3:41:00 PM This report has been signed electronically by Marques Bradley MD Number of Addenda: 0 Note Initiated On: 08/25/2023 2:38 [facility]11-24-2023 Note HNO ID: [id number] Author: Evelyn Black RN Service: ? Author Type: Registered Nurse Type: Progress Notes Filed: 07/29/2023 11:18 AM Note Text: [facility]11-24-2023 History of Present illness Narrative* Evelyn Black RN - 07/29/2023 11:17 AM EST e documented in this encounterFisher[facility]11[facility] Instructions* Patient Instructions* Melissa Montalvo [...] High Protein, Atkins, Boost Glucose Control, Owyn, [place] Breakfast Essentials Light Start mixed with Fairlife fat free or 1% milk. -Check www.bariatricfusion.com or www.unSocialSign.in.com for additional options. Take small bites, eat slowly, chew food well, and always eat protein first. Separate eating and drinking by 30 min before and after. Aim for >64 oz water/day. Take small sips and avoid straws. Liquids should be sugar-free, no calories, no carbonation, no caffeine. Protein juarez (gnqezdc8d, Isopure, Gatorade protein), electrolyte drinks (Gatorade or Powerade zero, sugar free liquid IV or Drip Drop), sugar free jello and sugarfree popsicles are also acceptable. Nutrition Monitoring & Evaluation: increase PO intake >75% of estimated needs, weight check and patient update Need for Follow up: based on surgery status documented in this encounterFisher[facility]11-17-2023 NoteHNO ID: [id number] Author: Melissa Montalvo RD Service: ? Author Type: Registered Dietitian Type: Progress Notes Filed: 07/22/2023 4:06 PM Note Text: [facility] Nutrition Therapy: Virtual Consult - Initial Assessment I have communicated my name and active licensure. The patient?s identity and physical location were verified at the time of this visit. Either the patient or their legal contact center representative has been informed of the [...] High Protein, Atkins, Boost Glucose Control, Owyn, [place] Breakfast Essentials Light Start mixed with Fairlife fat free or 1% milk. -Check www.bariatricfusion.com or www.[employer].ConnectAndSell for additional options. Take small bites, eat slowly, chew food well, and always eat protein first. Separate eating and drinking by 30 min before and after. Aim for >64 oz water/day. Take small sips and avoid straws. Liquids should be sugar-free, no calories, no carbonation, no caffeine. 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 [place] body weight: 159 lbs. 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 Recommendation was a GPOEM. Will consult with surgeon next week regarding next POC for pt. Pt VU. documented in this encounterFisher[facility]11-[facility]23 History of Present illness Narrative* Melissa Montalvo, RD - 07/22/2023 1:15 PM EST [facility] Nutrition Therapy: Virtual Consult - Initial Assessment I have communicated my name and active licensure. The patient s identity and physical location wereverified at the time of this visit. Either the patient or their legal contact center representative has been informed of the [...] High Protein, Atkins, Boost Glucose Control, Owyn, [place] Breakfast Essentials Light Start mixed with Fairlife [...] calories, no carbonation, no caffeine. Protein juarez (ojofbvm3n, Isopure, Gatorade protein), electrolyte drinks (Gatorade or [...] significant for adult onset weight gain (maintains tysfvx932 lbs, highest 220 lbs in 2018). 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 [place] body weight: 159 lbs. 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 Procedure Code(s): --- Professional --- 70592 Diagnosis Code(s): --- Professional --- K44.9 K31.89 Z98.890 R10.13 CPT copyright 2020 [employer]. All rights reserved. Attending Participation: I personally performed the entire procedure. Scope In: 10:40:19 AM Scope Out: 10:50:37 AM MD Marques Rainey MD 07/14/2023 10:53:09 AM This report has been signed electronically by Marques Bradley MD Number of Addenda: 0 Note Initiated On: 07/14/2023 10:24 [facility]11-09-2023 Nurse Note* Mónica Spaulding RN - [...] RN In Department: GASTROENTEROLOGY documented [facility]23 NoteHNO ID: [id number] Author: Brennen Shaw, PhD Service: ? Author Type: Physician Type: Progress Notes Filed: 07/19/2023 10:07 AM Note Text: [facility] SURGERY BEHAVIORAL HEALTH EVALUATION DATE OF SERVICE: July 13, 2023 TIME OF SERVICE: 2:10 PM-3:29 PM COST CENTER: [facility] CPT CODE: - 73790 Brief Emotional/Behavioral Assessment with scoring/documentation - [id number] Virtual Psych Diagnostic Eval BILLING CODE: ENDO PSYL MAIN 40053/Marco DATE OF FIRST SERVICE THIS CYCLE: July 13, 2023 SESSION #: 1 BMI Surgical Pathway Visit type: Bariatric Surgeon Visit I have communicated my name and active licensure. The patient's identity and physical location were verified at the time of this visit. Either the patient or their legal contact center representative has been informed of the [...] other people who have undergone the procedure (senior living Specific areas of understanding that should be [...] during the binge episod (more content not included)...[facility]09-22-2023 Miscellaneous Notes* Telephone Encounter - Evelyn [...] Pt agreed with plan. documented in this encounter[facility]-2023 NoteHNO ID: [id number] Author: Nabil Bell RT(R) Service: Nuclear Medicine [...] safety can be found using this link: [email or web address] SIGNATURE: RT Charmaine(R) PATIENT NAME: Constantino Cardoso DATE: May 26, 2023 TIME: 7:17 AM PAGER/CONTACT #:[facility]09-20-2023 NoteHNO ID: [id number] Author: Pedro Gonzalez LPN Service: ? Author Type: LICENSED NURSE Type: Progress Notes Filed: 05/25/2023 4:15 PM Note Text: Name: Constantino Cardoso [facility]#: [id number] Date: 05/25/2023 ESOPHAGEAL MANOMETRY TEST Indication: Nausea [...] patient tolerated the test without difficulty. .[facility] of Present illness Narrative* Pedro Gonzalez LPN - 05/25/2023 3:55 PM EDT Name: Constantino Cardoso [facility]#: [id number] Date: 05/25/2023 ESOPHAGEAL MANOMETRY TEST Indication: Nausea [...] difficulty. .Pedro Gonzalez LPN documented in this [facility]23 Miscellaneous Notes* Telephone Encounter - [...] after a gastric bypass. documented in this [facility]-01-2023 NoteHNO ID: [id number] Author: Marques Bradley MD Service: ? Author [...] for internal providers or letter via the [employer] for external providers. Chief Complaint: [...] Marques Bradley MD Date: 05/12/2023 Time: 8:15 [facility]08-28-2023 Miscellaneous Notes* Telephone Encounter - Evelyn Black RN - 05/02/2023 9:12 AM EDT [facility] SPECIALTY CARE COORDINATION TELEPHONE ENCOUNTER Chief complaint & duration dysphagia. Type of procedure: hernia repair hiatal with Dr. MORTENSEN in [place] February of 2019. Sending OP notes Nursing assessment (subjective/objective) . pain in chest area and getting worse Went to [facility] March 2023 who told her she needed a stent in her heart..but her c/o were difficulty swallowing and sent pt home and referred her to [facility] and was there in the hospital for [...] appt after records obtained documented in this encounterFisher[facility]08-[facility]-2023 Miscellaneous Notes* Telephone Encounter - Evelyn Black RN - 04/26/2023 2:00 PM EDT [facility] SPECIALTY CARE COORDINATION TELEPHONE ENCOUNTER Second attempt to contact this pt. Pt has upcoming information, and unable to complete any chart prep, history, symptoms, testing etc. LVM and call back number. documented in this encounterFisher[facility]08-17-2023 Evaluation note* Encounter Date Diagnosis Assessment Notes Treatment Notes Treatment Clinical Notes Apr, Esophageal dysmotility (ICD-10 - K22.4) Apr, Esophageal spasm (ICD-10 - K22.4) Apr, Nausea & vomiting (ICD-10 - R11.2) Patinet reports that she still has nausea but no vomiting Patient reports that she is to see Dr. Strong at [facility] Patient is to start dicyclomine 20 mg 4 times daily sent to pharm today RTO 6 weeks Apr, Dysphagia (ICD-10 - R13.10) [employer] Other 08-14-2023 Miscellaneous Notes* Telephone Encounter - Evelyn Black RN - 04/18/2023 2:13 PM EDT [facility] SPECIALTY CARE COORDINATION TELEPHONE ENCOUNTER Contacted pt regarding a referral from Dr Martinez's office. LVM and call back number. documented in this encounter[facility]08-03-2023 Miscellaneous Notes* Telephone Encounter - Yancy Lopez - 04/07/2023 1:15 PM EDT Referral rec'd documented in this encounterFisher[facility]06-17-2023 Evaluation + Plan note Extracted from: Title:ED Note Author:Pooja CARLIN Franklinwilliam Ibrahim Date :02/19/23 Right wrist sprain (S63.501A [...] pain, # 20 tab(s), Refills(s) 0, Pharmacy: [facility]/pharmacy #[id number], 170, cm, 02/19/23 0:56:00 EDT, Height/Length Dosing, 90.2, kg, 02/19/23 0:56:00 EDT, Weight Dosing XR Elbow 3+ Views Right XR Wrist 3+ Views Right [facility]06-17-2023 Hospital Discharge instructions Patient Education 02/19/2023 [...] are safe for you. General instructions Take njur-vcs-rjpizoe and prescription medicines only as told by [...] provider. Document Revised: 12/29/2020 Document Reviewed: 12/29/2020 [employer] Patient Education 2022 [employer]. Follow Up Care 02/19/2023 00:51:16 With:JUDI YOUSSEF Address: [address] [place] [address]- [phone] Business (1) When:02/22/2023 Comments:Take the pain medication as prescribed as needed for pain. Please follow-up with your primary care doctor in the next 2 to 3 days for further evaluation management. Please return to the ED for any new or worsening symptoms or [facility]08-10-2022 Hospital Discharge instructions Patient Education 04/14/2022 [...] water added (diluted fruit juice). Eat bland, lnfg-ib-mymkia foods in small amounts as you are able. These foods include bananas, applesauce, rice, lean meats, toast, and crackers. Avoid fluids that contain a lot of sugar or caffeine, such as energy drinks, sports drinks, and soda. Avoid alcohol. Avoid spicy or fatty foods. General instructions Take onyl-mun-lyknnpo and prescription medicines only as told by your health care provider. Drink enough fluid to keep your urine pale yellow. Wash your hands often using soap and water. If soap and water are not available, use hand frog catcher. Make sure that all people in your [...] eating and drinking to prevent dehydration. Take gxks-mck-bdzjhna and prescription medicines only as told by [...] 08/22/2006 Document Revised: 12/14/2019 Document Reviewed: 01/30/2019 [employer] Patient Education 2019 [employer]. Follow Up Care 01/28/2022 13:58:23 With:Monique Marquez CNP Address: When:3 months [facility] 05-26-2022 Hospital Discharge instructions Patient [...] drinks. ?Tomatoes and foods made with tomatoes. ?Animas or spicy foods. ?Chocolate and peppermint. Do not drink alcohol. General instructions Take ygza-xww-ysnomps and prescription medicines only as told by [...] 11/11/2004 Document Revised: 12/18/2018 Document Reviewed: 12/18/2018 [employer] Patient Education 2020 [employer]. Follow Up Care 01/13/2022 12:36:01 With:Monique Marquez CNP Address: When:3 months [facility] 05-09-2022 Hospital Discharge instructions Patient Education 01/11/2022 09:56:58 Endoscopy, Care After Procedure [facility] (CUSTOM) Endoscopy Care After Procedure Please read [...] Document Re-Released: 02/13/2007 ExitCare Patient Information 2010 [employer]. 01/11/2022 09:56:58 Pearce's Esophagus Pearce's Esophagus Pearce's [...] drinks. ?Tomatoes and foods made with tomatoes. ?Animas or spicy foods. ?Chocolate and peppermint. Do not drink alcohol. General instructions Take nkqd-wkv-qoyrxdp and prescription medicines only as told by [...] 11/11/2004 Document Revised: 12/18/2018 Document Reviewed: 12/18/2018 [employer] Patient Education 2020 [employer]. Follow Up Care 12/03/2021 15:32:26 With:Anai FORBES Address: [address] [place] [address] Business (1) When:1 to 2 weeks Comments:Call for any problems. [facility]03-30-2022 Hospital Discharge instructions Follow Up Care 12/02/2021 10:32:32 With:ABAD SWARTZ, JHOANA Castro, URL Address: [address] [place] [address] When: Unknown [facility] [place] Evaluation + Plan note Future Appointments Appointment Date:01/11/2022 09:40:00 AM Scheduled Provider: Location:[facility] Appointment Type:Surgery FT [facility] [place] Evaluation + Plan note Future Appointments Appointment Date:04/14/2022 03:00:00 PM Scheduled Provider:Monique Marquez CNP Location:[facility] Appointment Type:[facility] Follow Up Future Scheduled Tests Radiology* NM Gastric Emptying Study 01/28/22 [facility] Evaluation + Plan note Future Appointments Appointment Date:04/14/2022 03:00:00 PM Scheduled Provider:Monique Marquez CNP Location:[facility] Appointment Type:[facility] Future Appointments Appointment Date:04/20/2022 12:00:00 PM Scheduled Provider: Location:.[facility] Appointment Type:US Abdominal/Pelvis () Appointment Date:06/02/2022 09:45:00 AM Scheduled Provider:Anai FORBES MD Location:[facility] Appointment Type:[facility] Follow Up Future Scheduled Tests Laboratory* Fecal WBC Lactoferrin 04/14/22 * Giardia lamblia, Direct Detection EIA 04/14/22 * O & P Exam, Routine 04/14/22 * Clostridium difficile by PCR 04/14/22 * Enteric Panel by PCR 04/14/22 * CBC w/ Auto Diff 04/14/22 * Comprehensive Metabolic Panel 04/14/22 Radiology* US Abdomen Complete 04/20/22 [facility] Evaluation + Plan note Future Appointments Appointment Date:06/02/2022 09:45:00 AM Scheduled Provider:Anai FORBES MD Location:[facility] Appointment Type:[facility] Follow Up Diagnostic Tests Pending * O & P Exam, Routine 04/29/22 * Giardia lamblia, Direct Detection EIA 04/29/22 [facility] assessment information available [facility] Work Phone: Evaluation noteNo InformationNort Apptio Other Evaluation note* Diagnosis Nausea- Primary Nausea alone Dysphagia, unspecified type [facility] Diagnosis Nausea Nausea alone documented in this encounter [facility] note* Diagnosis Dysphagia, unspecified type Gastroparesis History of Pricilla fundoplication Personal history of surgery to other organs documented [facility] this [facility]* Diagnosis Gastroparesis- Primary Malnutrition of moderate degree (HCC) Malnutrition of moderate degree Gastro-esophageal reflux disease without esophagitis Esophageal reflux Overweight (BMI 25.0-29.9) Overweight Dietary counseling and surveillance Dietary surveillance and counseling documented in this encounter [facility] note* Diagnosis Gastroparesis- Primary documented in this encounter [facility]* Diagnosis Onset Date Resolution Status Abdominal adhesions acute Dysphagia acute [facility]* Diagnosis Hypoglycemia- Primary Hypoglycemia, unspecified Encounter for dietary consultation [facility] Diagnosis Hypoglycemia Hypoglycemia, unspecified documented in this encounter [facility]* Diagnosis Other dysphagia- Primary Other dysphagia documented in this encounter [facility] note* Diagnosis Ileus (HCC)- Primary Paralytic ileus Ileus (HCC) Paralytic ileus Generalized abdominal pain Abdominal pain, generalized Hypokalemia Hypopotassemia Primary hypertension Unspecified essential hypertension Gastroesophageal reflux disease with esophagitis without hemorrhage Major depressive disorder Major depressive disorder, single episode, unspecified Hypokalemia Hypopotassemia Generalized abdominal pain Abdominal pain, generalized documented in this encounter [facility] note* Diagnosis Seizure (CMS/HCC)- Primary Other convulsions History of obstructive sleep apnea Migraine without aura and without status migrainosus, not intractable (CMS/HCC) documented in this encounter [facility] HealthcareEvaluation note* Diagnosis Seizure (CMS/HCC)- Primary Other convulsions History of obstructive sleep apnea Migraine without aura and without status migrainosus, not intractable (CMS/HCC) Dizziness Dizziness and giddiness documented in this encounter [facility] HealthcareHistory and physical note Author Jennie Ayon [facility] May 11, 2024 10:16am Note Date/Time May 11, 2024 10:16am [facility] [address] [place] [address] Gastroenterology H&P Signed Patient: Constantino Cardoso MR#: [id number] : 1970 Acct:[id number] Age/Sex: 53 / F Adm Date: 4 Loc: Room: Type: [facility] Attending Dr: Jennie Ayon MD [...] Ayon MD> 05/11/[address] [facility] Work Phone: History general Narrative - Reported* Type Description Date Medical History mitral valve prolapse Medical History gallstones Medical History Acid reflux Medical History Hiatal Hernia Medical History headache Surgical History hysterectomy Surgical History cholecystectomy Surgical History hiatal hernia repair Hospitalization History see above Hospitalization History kindey infections hospit alized x3 [employer] Other Hospital course Narrative No data available for this section [facility] [place] [facility] Discharge instructions No data available for this section [facility] Additional Instructions Follow-up with your primary care doctor Return to ED if develop worsening symptoms or concerns[facility] Work Phone: Hospital Discharge instructions Additional Instructions If your symptoms return/worsen or you develop any further concerns or symptoms please see your doctor or return to the emergency department immediately. Please be sure to continue follow-up with the psychological stress evaluator and with your scheduled EGD and further testing.[facility] Work Phone: Hospital Discharge instructions [...] problems. -Follow up with PCP. -Office number [phone]. [facility] Work Phone: Progress note No data available for this section [facility] for referral (narrative)* Diagnostic Procedure Only (Routine) - Authorized Specialty Diagnoses / Procedures [facility]erred To Contact MOLECULAR & FUNCTIONAL IMAGING Diagnoses Nausea Procedures NM GASTRIC EMPTYING SOLID GASTRIC [place] [address] [place] [address] Molecular & Functional Imaging [address] [place] [address] Referral ID Status Reason Start Date Expiration Date Visits Requested Visits Authorized [id number] Authorized Auto-Generat ed Referral 05/16/2023 06/14/2024 1 1 * Outpatient Procedure (Routine) - Authorized Specialty Diagnoses / Procedures [facility]erred To Contact [facility] Diagnoses Nausea Procedures MANOMETRY ESOPHAGEAL ESOPHAGEAL MOTILITY STUDY W/INTERP&[place] [address] [place] [address] [facility] [address] [place] [address] Referral ID Status Reason Start Date Expiration Date Visits Requested Visits Authorized [id number] Authorized Auto-Generat ed Referral 05/16/2023 05/16/2024 1 1 [facility] for referral (narrative)* Outpatient Procedure (Routine) - Closed Specialty Diagnoses / Procedures Referred By [facility] Referred To Contact [facility] Diagnoses Dysphagia, unspecified type Gastroparesis History of Pricilla fundoplication Procedures EGD - THERAPEUTIC, EUS, OR TUBE INTERVENTIONS ESOPHAGOGASTRODUODENOSCOPY TRANSORAL DIAGNOSTIC STOMACH SURGERY PROCEDURE UNLISTED Marques Bradley MD [address] [place] [address] [address] Referral ID Status Reason Start Date Expiration Date V isits Requested Visits Authorized [id number] Closed Auto-Generate d Referral 05/27/2023 05/27/2024 1 1 [facility] for referral (narrative)* Outpatient Procedure (Routine) - Authorized Specialty Diagnoses / Procedures Referred By Contac t Referred To Contact [facility] Diagnoses Gastroparesis Procedures EGD - THERAPEUTIC, EUS, OR TUBE INTERVENTIONS ESOPHAGOGASTRODUODENOSC OPY TRANSORAL DIAGNOSTIC STOMACH SURGERY PROCEDURE UNLISTED Marques Bradley MD [address] [place] [address] [address] Referral ID Status Reason Start Date Expiration Date Visits Requested Visits Authorized [id number] Authorized Auto-Generat ed Referral 07/29/2024 1 1 [facility] for visit Narrative* Outpatient Procedure (Routine) - Closed Specialty Diagnoses / Procedures Referred By [facility] Referred To Contact [facility] Diagnoses Dysphagia, unspecified type Gastroparesis History of Pricilla fundoplication Procedures EGD - THERAPEUTIC, EUS, OR TUBE INTERVENTIONS ESOPHAGOGASTRODUODENOSCOPY TRANSORAL DIAGNOSTIC STOMACH SURGERY PROCEDURE UNLISTED Marques Bradley MD [address] [place] [address] [facility] [address] [place] [id number] Referral ID Status Reason Start Date Expiration Date V isits Requested Visits Authorized [id number] Closed Auto-Generate d Referral 05/27/2023 05/27/2024 1 1 [facility] Summary Purpose Family History No [...] 3:16 PM Hospital Course Note MR#: [id number] [facility] Pt. Name: Constantino Cardoso Admitted: [...] 49-year-old female, who was transferred to [facility] from [facility] with acute abdominal pain. The pain has started on Tuesday while at work. 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 The pain feels similar to when she was here in April during her stay. During that time, she was told there was nothing left for Dr. Mortensen to do and she has been following up with GI specialist in [place]. She is actually due to have an [...] adhesions Dysphagia Small bowel obstruction Chief Complaint Admit Date Unknown December 18, 2024 8:3 4am Reason for Referral Specialty Diagnoses / Procedures Referred By Eileen mueller Referred To Contact Radiology Diagnoses Other dysphagia Procedures FL MODIFIED BARIUM SWALLOW W VIDEO Justin Lucero MD [address] [place] [address] Referral ID Status Reason Start Date Expiration Date Visits Re quested Visits Authorized [id number] Open 08/17/2024 08/17/2025 1 1 Additional Source Comments INFORMATION SOURCE (unrecogn ized section and content) DATE CREATED AUTHOR 06/03/2020 [facility] DATE CREATED AUTHOR AUTHOR'S ORGANIZ ATION 01/17/2023 [facility] DATE CREATED AUTHOR AUTHOR'S ORGANIZ ATION 04/02/2023 [facility] DATE CREATED AUTHOR AUTHOR'S ORGANIZ ATION 08/26/2023 [facility] DATE CREATED AUTHOR AUTHOR'S ORGANIZ ATION 12/03/2023 [facility] DATE CREATED AUTHOR AUTHOR'S ORGANIZ ATION 02/17/2024 [facility] DATE CREATED AUTHOR AUTHOR'S ORGANIZ ATION 02/19/2024 [facility] DATE CREATED AUTHOR AUTHOR'S ORGANIZ ATION 08/19/2024 [facility] DATE CREATED AUTHOR AUTHOR'S ORGANIZ ATION 09/05/2024 [facility] DATE CREATED AUTHOR AUTHOR'S ORGANIZ ATION 10/21/2024 [facility] DATE CREATED AUTHOR AUTHOR'S ORGANIZ ATION 10/22/2024 [facility] DATE CREATED AUTHOR AUTHOR'S ORGANIZ ATION 10/29/2024 [facility] DATE CREATED AUTHOR AUTHOR'S ORGANIZ ATION 11/17/2024 [facility] DATE CREATED AUTHOR AUTHOR'S ORGANIZ ATION 12/14/2024 [facility] DATE CREATED AUTHOR AUTHOR'S ORGANIZ ATION 12/22/2024 [facility] DATE CREATED AUTHOR AUTHOR'S ORGANIZ ATION 01/10/2025 [facility] EPIC DATE CREATED AUTHOR AUTHOR'S ORGANIZ ATION 01/13/2025 [facility] Care Team (unrecognized sect ion and content) Team Status: Active Member Role Status Dates Judi Youssef CONSUMER EDUCATOR-C Primary Care Provider Active Team Status: Active Member Role Status Dates Judi Youssef CONSUMER EDUCATOR-C Primary Care Provider Active Start: April 13, [...] Active Member Role Status Dates Judi Youssef CONSUMER EDUCATOR-C Primary Care Provider Active Start: May 11, 2024 Jennie Ayon MD Attending Provider, Other Provider Active Start: May 11, 2024 Team Status: Inactive Member Role Status Dates Judi Youssef CONSUMER EDUCATOR-C Primary Care Provider Active Start: June 19, 2024 End: June 19, 2024 Jennie Ayon MD Attending Provider Active Start: June 19, 2024 End: June 19, 2024 Team Status: Inactive Member Role Status Dates Judi Youssef CONSUMER EDUCATOR-C Primary Care Provider Active Conner Griffith DO Emergency Provider Active Team Status: Inactive Member Role Status Dates Jennie Ayon MD Attending Provider Active Judi Youssef NP-C Primary Care Provider Active Team Status: Inactive Member Role Status Dates Judi Youssef CONSUMER EDUCATOR-C Primary Care Provider Active Pete Thakkar DO Emergency Provider Active [employer] Relationship Specialty Start Date End Date Joel Alejandra PCP - General Family Medicine 04/26/18 Raf[address] R[address] [place] [phone] Referring General Surgery 04/26/18 Unitizer Relationship Specialty Start Date End Date Ny Joel Onel PCP - General Family Medicine 04/26/18 Raf[address] Rangel [address] [place] [address] [address] [place] [address] Referring General Surgery 04/26/18 Unitizer Relationship Specialty Start Date End Date Joel Alejandra PCP - General Family Medicine 04/26/18 [address] [place] [address] [address] [place] [phone] Referring General Surgery 04/26/18 Unitizer Relationship Specialty Start Date End Date Joel Alejandra PCP - General Family Medicine 04/26/18 [address] [place] [address] [address] [place] [phone] Referring General Surgery 04/26/18 [employer] Relationship Specialty Start Date End Date Joel Alejandra PCP - General Family Medicine 04/26/18 [address] [place] [address] [address] [place] [phone] Referring General Surgery 04/26/18 [employer] Relationship Specialty Start Date End Date Joel Alejandra PCP - General Family Medicine 04/26/18 Rafa Rangel [address] [place] [address] Referring General Surgery 04/26/18 [employer] Relationship Specialty Start Date End Date Joel Alejandra PCP - General Family Medicine 04/26/18 Rafa Rangel [address] [place] [address] Referring General Surgery 04/26/18 Unitizer Relationship Specialty Start Date End Date Joel Alejandra PCP - General Family Medicine 04/26/18 Rafa Rangel [address] [place] [address] Referring General Surgery 04/26/18 Unitizer Relationship Specialty Start Date End Date Joel Alejandra PCP - General Family Medicine 04/26/18 Rafa Rangel [address] [place] [id number] Referring General Surgery 04/26/18 Unitizer Relationship Specialty Start Date End Date Joel Alejandra PCP - General Family Medicine 04/26/18 Rafa Rangel [address] [place] [address] Referring General Surgery 04/26/18 Unitizer Relationship Specialty Start Date End Date Joel Alejandra PCP - General Family Medicine 04/26/18 Rafa Rangel [address] [address] Referring General Surgery 04/26/18 Unitizer Relationship Specialty Start Date End Date Unallocated, Miracle Jesus MD [address] [place] [address] [place] [address] PCP - General 04/25/23 Judi Youssef MD [address] [place], [place] [id number] Referring Physician Family Medicine 04/25/23 Unitizer Relationship Specialty Start Date End Date Unallocated, Miracle Jesus MD [address] [place] [address] [place] [address] PCP - General 04/25/23 Judi Youssef MD [address] [place] [address] Referring Physician Family Medicine 04/25/23 Unitizer Relationship Specialty Start Date End Date Unallocated, Miracle Jesus MD [facility] [place] [address] PCP - General 04/25/23 Judi Youssef MD [address] [place] [address] Referring Physician Family Medicine 04/25/23 Unitizer Relationship Specialty Start Date End Date Unallocated, [place] [address] PCP - General 04/25/23 Judi Youssef MD [address] [place] [address] Referring Physician Family Medicine 04/25/23 Unitizer Relationship Specialty Start Date End Date No, Pcp PCP - General 08/17/24 Unitizer Relationship Specialty Start Date End Date Judi Youssef S, CAN CAR[employer]ER - [employer] REGENERATOR OPERATOR [address] [place] [address] PCP - General 08/29/24 Unitizer Relationship Specialty Start Date End Date Unallocated, Miracle Jesus MD formerly [facility] [place] [address] PCP - General 04/25/23 Judi Youssef MD [address] [place] [address] Referring Physician Family Medicine 04/25/23 Nikki Ayoub PA [address] [place] [address] Physician Major General Neurology 11/26/24 Team Status: Inactive Member Role Status Dates Nicanor Perez MD Attending Provider Active Start : December 18, 2024 End: December 18, 2024 Unitizer Relationship Specialty Start Date End Date Unallocated, Miracle Jesus MD [address] [place] [address] PCP - General 04/25/23 Judi Youssef MD [address] [place] [address] Referring Physician Family Medicine 04/25/23 Nikki Ayoub PA [address] [place] [address] Physician Major General Neurology 11/26/24 Unitizer Relationship Specialty Start Date End Date Unallocated, Sherrells MD Edin [address] [place] [address] PCP - General 04/25/23 Judi Youssef MD [address] [place] [address] Referring Physician Family Medicine 04/25/23 Nikki Ayoub PA [address] [place] [address] Physician Major General Neurology 11/26/24 Goals (unrecognized section and content) Goals may be documented in a n alternate section REASON FOR VISIT (unrecogniz ed section and content) Reason Comments Appointment Reason Comments Review Manager - Other Reason Onset Date Comments Procedure 05/25/2023 Manometry Esopha geal Specialty Diagnoses / Procedures Referred By Contac t Referred To Contact [facility] Diagnoses Nausea Procedures MANOMETRY ESOPHAGEAL ESOPHAGEAL MOTILITY STUDY W/INTERP&RPT Marques Bradley MD [address] [place] [address] [facility] Disease [place] [address] [place] [address] Referral ID Status Reason Start Date Expiration Date V isits Requested Visits Authorized [id number] Closed Auto-Generate d Referral 05/16/2023 05/16/2024 1 1 Reason Comments Results Reason Comments Patient Education Assessment Reason Comments Hypoglycemia NEW Reason Comments Hypoglycemia Specialty Diagnoses / Procedures Referred By Contac t Referred To Contact Diagnoses Other dysphagia Other dysphagia [R13.19] Procedures ME EGD TRANSORAL BIOPSY SINGLE/MULTIPLE ME ESOPHAGOGASTRODUODENOSCOPY TRANSORAL DIAGNOSTIC ME EGD BALLOON DILATION ESOPHAGUS <30 MM DIAM ESOPHAGOGASTRODUODENOSCOPY BIOPSY Justin Lucero MD [address] [place] [address] [facility] [address] [place] [address] Referral ID Status Reason Start Date Expiration Date Visits Re quested Visits Authorized [id number] 1 1 Reason Comments Abdominal Pain Specialty Diagnoses / Procedures Referred By Eileen mueller Referred To Contact Diagnoses Ileus (HCC) Intestinal obstruction (HCC) Obdulio Justice MD [address] [address] [facility] [address] [place] [address] Referral ID Status Reason Start Date Expiration Date Visits Re quested Visits Authorized [id number] 1 1 Reason Comments Hospital Follow-up Reason Comments Seizures Source Comments (unrecognize d section and content) In the event this informatio n is protected by the Federal Confidentiality of Alcohol and Drug Abuse Patient Records regulations: The Federal rules restrict any use of the information to criminally investigate or prosecute any alcohol or drug abuse patient.[facility] the event this information is protected by the Federal Confidentiality of Alcohol and Drug Abuse Patient Records regulations: The Federal rules restrict any use of the information to criminally investigate or prosecute any alcohol or drug abuse patient.[facility] the event this information is protected by the Federal Confidentiality of Alcohol and Drug Abuse Patient Records regulations: The Federal rules restrict any use of the information to criminally investigate or prosecute any alcohol or drug abuse patient.[facility] the event this information is protected by the Federal Confidentiality of Alcohol and Drug Abuse Patient Records regulations: The Federal rules restrict any use of the information to criminally investigate or prosecute any alcohol or drug abuse patient.[facility] the event this information is protected by the Federal Confidentiality of Alcohol and Drug Abuse Patient Records regulations: The Federal rules restrict any use of the information to criminally investigate or prosecute any alcohol or drug abuse patient.[facility] the event this information is protected by the Federal Confidentiality of Alcohol and Drug Abuse Patient Records regulations: The Federal rules restrict any use of the information to criminally investigate or prosecute any alcohol or drug abuse patient.[facility] the event this information is protected by the Federal Confidentiality of Alcohol and Drug Abuse Patient Records regulations: The Federal rules restrict any use of the information to criminally investigate or prosecute any alcohol or drug abuse patient.[facility] the event this information is protected by the Federal Confidentiality of Alcohol and Drug Abuse Patient Records regulations: The Federal rules restrict any use of the information to criminally investigate or prosecute any alcohol or drug abuse patient.[facility] the event this information is protected by the Federal Confidentiality of Alcohol and Drug Abuse Patient Records regulations: The Federal rules restrict any use of the information to criminally investigate or prosecute any alcohol or drug abuse patient.[facility] the event this information is protected by the Federal Confidentiality of Alcohol and Drug Abuse Patient Records regulations: The Federal rules restrict any use of the information to criminally investigate or prosecute any alcohol or drug abuse patient.[facility] the event this information is protected by the Federal Confidentiality of Alcohol and Drug Abuse Patient Records regulations: The Federal rules restrict any use of the information to criminally investigate or prosecute any alcohol or drug abuse patient.[facility] the event this information is protected by the Federal Confidentiality of Alcohol and Drug Abuse Patient Records regulations: The Federal rules restrict any use of the information to criminally investigate or prosecute any alcohol or drug abuse patient.[facility] Scheduled Active and Recently Administ [...] Change - Provider: Chung Renee APRN - SUBMARINE CABLE EQUIPMENT TECHNICIAN) PRN Medication Order 08/15/2024 08/16/2024 08/17/2024 0.9 [...] 0942 (Given - Provider: Jermain Renee, VICKY) enoxaparin (LOVENOX) injection 40 mg 40 mg, [...] Armstrong MD) 0942 (Given - Provider: Jermain Renee RN) metoclopramide (REGLAN) injection 10 mg (COMPLETED) 10 mg, IntraVENous, ONCE, 1 dose, On Tue08/28/24 at 1145, IV Push: Max 10 mg over 1-2 minutes. 1210 (Given - Provider: Makayla Olson RN) metoprolol succinate (TOPROL XL) extended release tablet 50 mg 50 mg, Oral, DAILY, First dose on Tue08/28/24 at 1545, Until Discontinued, Do not crush or chew. 1516 (Held by provider - Provider: Cahd Mclaughlin MD - Reason: Other - Comment: [...] RN) 0942 (Given - Provider: Jermain Renee RN)2100 (Due) sertraline (ZOLOFT) tablet 50 mg 50 [...] Infusing) 0942 (Given - Provider: Jermain Renee RN)2100 (Due) Continuous Medication Order 08/28/2024 08/29/2024 08/30/2024 0.9 % sodium chloride infusion (CANCELED) IntraVENous, at 75 mL/hr, CONTINUOUS, Starting on Tue08/28/24 at 1545 1542 (New Bag - Provider: Maine Espinoza, VICKY)1542 (Rate/Dose Verify - Provider: Brown Richard RN)1548 [...] not administer for more than 5 days. 2311 (Given - Provider: Brown Richard RN) 0740 (Given - Provider: Enedina Madden, VICKY)1418 (Given - Provider: Enedina Madden RN) labetalol [...] Midline or Central Line = 20 mL/lumen 9296 (Given - Provider: Brown Richard RN) Linked [...] BE BASED ON THE PRIMARY CLINICAL RECORDS. [facility] [employer] [facility]. provides no warranty or guarantee of the accuracy or completeness of information in this document.
--- NOTE | 2025-01-20 00:15 | ED.SKABFB1 ---
HPI - Skin/Abscess/Foreign Bdy General Chief complaint: Skin/Abscess/Foreign Body Stated complaint: abd pain Time Seen by Provider: 01/20/25 00:11 Source: patient Mode of arrival: walk-in Limitations: no limitations History of Present Illness HPI narrative: works at [employer]. Noted lesion on her right lower abdominal wall 2 days ago and tried to pop it. it is now open and has surrounding erythema. No red streaks. No fever or chills but does feel nauseated Related Data Home Medications ?Medication ?Instructions ?Recorded ?Confirmed dicyclomine 20 mg tablet 20 mg PO QID 11/27/23 01/19/25 pantoprazole 40 mg tablet,delayed 40 mg PO DAILY 12/15/23 01/19/25 release cholecalciferol (vitamin D3) 50 50 mcg PO DAILY 04/13/24 01/19/25 mcg (2,000 unit) capsule lisinopril 10 mg tablet 20 mg PO DAILY 04/13/24 01/19/25 metoprolol succinate 50 mg 50 mg PO DAILY 04/13/24 01/19/25 tablet,extended release 24 hr sertraline 50 mg tablet 50 mg PO DAILY 04/13/24 01/19/25 acarbose 25 mg tablet 25 mg PO BID 12/18/24 01/19/25 aspirin 81 mg tablet,delayed 81 mg PO DAILY 12/18/24 01/19/25 release cyanocobalamin (vitamin B-12) 1,000 mcg PO DAILY 12/18/24 01/19/25 1,000 mcg tablet levetiracetam 750 mg tablet 1,000 mg PO Q12H 12/18/24 01/19/25 multivitamin with folic acid 400 1 tab PO DAILY 12/18/24 01/19/25 mcg tablet (Daily-Reena (with folic acid)) promethazine 25 mg tablet 25 mg PO Q6H PRN nausea and 12/18/24 01/19/25 vomiting Previous Rx's ?Medication ?Instructions ?Recorded ondansetron 4 mg disintegrating 4 mg PO Q8H PRN nausea and 04/13/24 tablet vomiting 3 days #10 tabs ibuprofen 800 mg tablet 800 mg PO Q8H PRN pain #20 tabs 06/24/24 ondansetron 4 mg disintegrating 4 mg PO Q6H PRN nausea and 09/28/24 tablet vomiting #12 tabs ketorolac 10 mg tablet 10 mg PO TID PRN pain 4 days #12 12/18/24 tabs Allergies Allergy/AdvReac Type Severity Reaction Status Date / Time cyclobenzaprine (From Allergy Severe Anaphylaxis Verified 01/19/25 23:32 Flexeril) Penicillins Allergy Intermediate Hives Verified 01/19/25 23:32 Review of Systems ROS Status of ROS 10 or more systems reviewed and unremarkable except as noted in history and below [facility] Medical History (Updated 01/20/25 @ 00:20 by Adithya Quiros MD) Partial obstruction of small intestine ?K56.600 - Partial intestinal obstruction, unspecified as to cause (ICD-10) Constipation ?K59.00 - Constipation, unspecified (ICD-10) Ileus ?K56.7 - Ileus, unspecified (ICD-10) Nausea and vomiting ?R11.2 - Nausea with vomiting, unspecified (ICD-10) GERD (gastroesophageal reflux disease) ?K21.9 - Gastro-esophageal reflux disease without esophagitis (ICD-10) Elevated troponin ?R77.8 - Other specified abnormalities of plasma proteins (ICD-10) Chronic upper abdominal pain ?R10.10 - Upper abdominal pain, unspecified (ICD-10) ?G89.29 - Other chronic pain (ICD-10) Epigastric abdominal pain ?R10.13 - Epigastric pain (ICD-10) Abdominal pain, chronic, generalized ?R10.84 - Generalized abdominal pain (ICD-10) ?G89.29 - Other chronic pain (ICD-10) Headache, migraine ?G43.909 - Migraine, unspecified, not intractable, without status migrainosus (ICD-10) Gastroparesis ?K31.84 - Gastroparesis (ICD-10) Mitral valve disorder ?I05.9 - Rheumatic mitral valve disease, unspecified (ICD-10) Surgical History 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 ?K95.89 - Other complications of other bariatric procedure (ICD-10) ?K22.4 - Dyskinesia of esophagus (ICD-10) History of hernia surgery ?Z98.890 - Other specified postprocedural states (ICD-10) ?Z87.19 - Personal history of other diseases of the digestive system (ICD-10) FH: cholecystectomy ?Z83.79 - Family history of other diseases of the digestive system (ICD-10) H/O: hysterectomy ?Z90.710 - Acquired absence of both cervix and uterus (ICD-10) Family History Father Family history of myocardial infarction Family history of cancer Grandmother Family history of diabetes mellitus Family history of stroke Sister Family history of hypertension Social History Within the past year, how often did you have a drink containing alcohol: never Within the past year, how many standard drinks containing alcohol did you have on a typical day: 1 or 2 Within the past year, how often did you have six or more drinks on one occasion: never Total score: 0 Score interpretation: A score less than 3 is consistent with normal alcohol consumption. Smoking status: Former smoker Second hand tobacco smoke exposure: No Non-prescribed substance use: denies use Previous occupational history: works [employer] Known occupational exposures/hazards: No Highest level of school completed/degree received: high school graduate Do you want help with school or training: No Are you now , , , , never or living with a partner: In a typical week, how many times do you talk on the telephone with family, friends, or neighbors: 3 or more times per week How often do you get together with friends or relatives: 3 or more times per week How often do you attend mandaen or confucianism services: never Do you belong to any clubs or organizations such as mandaen groups unions, fraternal or athletic groups, or school groups: no Total score: 2 Score interpretation: A score of greater than or equal to 2 indicates the lowest level of social isolation. Little interest or pleasure in doing things: not at all Feeling down, depressed, or hopeless: not at all Feel stressed/tense/nervous/anxious/difficulty sleeping: not at all Due to disability, difficulty making decisions: No Do you think of yourself as: straight/heterosexual Gender Identity: female Exam Constitutional Vital Signs, click to edit/add: Last Vital Signs Temp 97.8 F 01/20/25 01:37 Pulse 48 L 01/20/25 01:37 Resp 16 01/20/25 01:37 BP 160/79 H 01/20/25 01:37 Pulse Ox 96 01/20/25 01:37 O2 Del Method Room Air 01/20/25 01:37 Common normals: no apparent distress, average body habitus, oriented x3, no limitations, healthy appearing, alert and well nourished [facility] Common normals: normocephalic and head/scalp atraumatic Eye Common normals: EOMs intact bilaterally and conjunctivae normal Respiratory Common normals: normal respiratory effort, no retractions, no use of accessory muscles and clear to auscultation bilaterally Cardio Common normals: regular rate, regular rhythm, S1 normal heart sound and S2 normal heart sound GI GI image (female):  1. superficial abscess. open lesion. 1cm with 3cm surrounding erythema. no red streaks. minor induration Extremity Common normals: normal to inspection and full ROM Neuro Common normals: oriented x3, CN's II-XII intact bilaterally, moves all extremities and no focal motor deficits Psych Appearance: grossly normal Course Vital Signs Vital signs: Vital Signs Temperature 98.2 F 01/19/25 23:27 Pulse Rate 61 01/19/25 23:27 Respiratory Rate 16 01/19/25 23:27 Blood Pressure 161/90 H 01/19/25 23:27 Pulse Oximetry 96 01/19/25 23:27 Oxygen Delivery Method Room Air 01/19/25 23:27 Temperature 97.8 F 01/20/25 01:37 Pulse Rate 48 L 01/20/25 01:37 Respiratory Rate 16 01/20/25 01:37 Blood Pressure 160/79 H 01/20/25 01:37 Pulse Oximetry 96 01/20/25 01:37 Oxygen Delivery Method Room Air 01/20/25 01:37 MDM - Skin/Abscess/Foreign Bdy MDM Narrative Medical decision making narrative: patient presents with superficial abscess right lower quad. abdominal wall. she tried to pop the lesion. it is open but not draining. Has 3cm of surrounding erythema and mild induration. labs ordered.IV antibiotics ordered Lab Data Labs: Lab Results 01/20/25 Range/Units 00:22 WBC 6.6 (4.0-11.0) 10^3/uL RBC 3.88 L (4.20-5.40) 10^6/uL Hgb 11.4 L (12.0-16.0) g/dL Hct 35.6 L (36.0-48.0) % MCV 91.8 (81.0-99.0) fL MCH 29.4 (26.7-34.0) pg MCHC 32.0 (29.9-35.2) g/dL RDW 12.9 (11.0-15.0) % Plt Count 321 (150-450) 10^3/uL MPV 9.4 L (9.5-13.5) fL Neut % (Auto) 69.1 (43.0-75.0) % Lymph % (Auto) 21.4 (20.5-60.0) % Baxter % (Auto) 6.7 (1.7-12.0) % Eos % (Auto) 2.3 (0.9-7.0) % Baso % (Auto) 0.5 (0.2-2.0) % Neut # (Auto) 4.5 (1.4-6.5) 10^3/uL Lymph # (Auto) 1.4 (1.2-3.8) 10^3/uL Baxter # (Auto) 0.4 (0.3-0.8) 10^3/uL Eos # (Auto) 0.2 (0.0-0.7) 10^3/uL Baso # (Auto) 0.0 (0.0-0.1) 10^3/uL Abs Immat Gran (auto) 0.00 (0.00-0.03) 10^3/uL Imm/Tot Granulo (auto) 0.0 (0.0-0.5) % Sodium 144 (136-145) mmol/L Potassium 4.4 (3.5-5.1) mmol/L Chloride 109 H (98-107) mmol/L Carbon Dioxide 28.1 (21.0-32.0) mmol/L Anion Gap 11.3 BUN 21.0 H (7.0-18.0) mg/dL Creatinine 0.88 (0.55-1.02) mg/dL Est GFR ( Amer) >60 (>=60 mL/min/1.73m^2) Est GFR (Non-Af Amer) >60 (>=60 mL/min/1.73m^2) BUN/Creatinine Ratio 23.9 Glucose 109 H (74-106) mg/dL Calcium 9.6 (8.5-10.1) mg/dL Discharge Plan Discharge Chief Complaint: Skin/Abscess/Foreign Body Clinical Impression: Abdominal wall abscess Patient Disposition: Home, Self-Care Condition: Good Mode of Transportation: Private Vehicle Prescriptions / Home Meds: No Action pantoprazole 40 mg tablet,delayed release (DR/EC) 40 mg PO DAILY lisinopril 10 mg tablet 20 mg PO DAILY metoprolol succinate 50 mg tablet extended release 24 hr 50 mg PO DAILY sertraline 50 mg tablet 50 mg PO DAILY cholecalciferol (vitamin D3) 50 mcg (2,000 unit) capsule 50 mcg PO DAILY ondansetron 4 mg tablet,disintegrating 4 mg PO Q8H PRN (Reason: nausea and vomiting) 3 Days Qty: 10 0RF ondansetron 4 mg tablet,disintegrating 4 mg PO Q6H PRN (Reason: nausea and vomiting) Qty: 12 0RF cyanocobalamin (vitamin B-12) 1,000 mcg tablet 1,000 mcg PO DAILY aspirin 81 mg tablet,delayed release (DR/EC) 81 mg PO DAILY promethazine 25 mg tablet 25 mg PO Q6H PRN (Reason: nausea and vomiting) levetiracetam 750 mg tablet 1,000 mg PO Q12H acarbose 25 mg tablet 25 mg PO BID multivitamin with folic acid [Daily-Reena (with folic acid)] 400 mcg tablet 1 tab PO DAILY ketorolac 10 mg tablet 10 mg PO TID PRN (Reason: pain) 4 Days Qty: 12 0RF dicyclomine 20 mg tablet 20 mg PO QID ibuprofen 800 mg tablet 800 mg PO Q8H PRN (Reason: pain) Qty: 20 0RF Print Language: Mohawk Instructions: Abscess (ED) Additional Instructions: have wound rechecked in 3-4 days. Referrals: STEPHANIE YOUSSEF [Primary Care Provider, Family Practice] - 1 week Discharge Date/Time: 01/20/25 01:40
[2025-01-20 00:57] LABS: Basophils Percent Auto 0.5 % (0.2-2.0); Eosinophils Absolute Auto 0.2 10^3/uL (0.0-0.7); Eosinophils Percent Auto 2.3 % (0.9-7.0); Hematocrit 35.6 % (36.0-48.0); Hemoglobin 11.4 g/dL (12.0-16.0); Lymphocytes Absolute Auto 1.4 10^3/uL (1.2-3.8); Lymphocytes Percent Auto 21.4 % (20.5-60.0); Mean Corpuscular Hemoglobin 29.4 pg (26.7-34.0); Mean Corpuscular Volume 91.8 fL (81.0-99.0); Mean Platelet Volume 9.4 fL (9.5-13.5); Monocytes Absolute Auto 0.4 10^3/uL (0.3-0.8); Monocytes Percent Auto 6.7 % (1.7-12.0); Neutrophils Absolute Auto 4.5 10^3/uL (1.4-6.5); Neutrophils Percent Auto 69.1 % (43.0-75.0); Platelet Count 321 10^3/uL (150-450); Red Blood Count 3.88 10^6/uL (4.20-5.40); Red Cell Distribution Width 12.9 % (11.0-15.0); White Blood Count 6.6 10^3/uL (4.0-11.0)
[2025-01-20] MEDS: ONDANSETRON PF 4 MG/2 ML VIAL IV (01:01)
[2025-01-20] MEDS: CLINDAMYCIN PHOSPHATE/D5W 900 MG/50 ML PREMIX 100 MG IV (01:01)
[2025-01-20 01:07] LABS: Anion Gap 11.3; BUN Creatinine Ratio 23.9; Calcium 9.6 mg/dL (8.5-10.1); Carbon Dioxide 28.1 mmol/L (21.0-32.0); Chloride 109 mmol/L (98-107); Estimated GFR (African America >60 (>=60 mL/min/1.73m^2); Estimated GFR (Non-African Ame >60 (>=60 mL/min/1.73m^2); Glucose 109 mg/dL (74-106); Potassium 4.4 mmol/L (3.5-5.1); Sodium 144 mmol/L (136-145)
[2025-01-20 01:37] VITALS: BP 160/79; PULSE 48; TEMP 36.6; O2SAT 96
== END 2025-01-20 01:40 | disposition home or self-care (01) ==
PROVIDERS: Emergency Provider Internal Medicine; PCP Nurse Practitioner Family
DX: L02.211 Cutaneous abscess of abdominal wall (principal); Z90.710 Acquired absence of both cervix and uterus; Z87.891 Personal history of nicotine dependence
CPT/HCPCS: 36415; 80048; 85025; 96365; 96375; 99285; J0736; J2405

== ENCOUNTER 2025-02-08 03:46 | Emergency (ER) | payer BC, SELFPAY ==
--- OUTSIDE RECORDS SUMMARY | 2025-01-09 06:43 | XMS_ITS ---
Author Organization The [facility] in [place] Address [address] [place] [address] Care Team Providers Care Heating And Ventilating Tender Name Role Phone Judi Tapia Primary Care Provider [phone] REASON FOR VISIT Levetiracetam increased Medications Medication SIG (Take, Route, Fr equency, Duration) Notes Start Date End Date Status levETIRAcetam 1000 MG 1 tablet Orally ev sruthi 12 hrs for 7 days Active Encounters Encounter Location Date Provider Diagnosis [facility] [address] [place] [address] 01/09/2025 Judi Tapia Plan Of Treatment Medication Medication Name Sig Start Date Stop Date Notes levETIRAcetam 1000 MG 1 tablet Orally ev sruthi 12 hrs for 7 days Progress Notes * Oly CARDOSODOB:[birth year] (54 yo F)Acc No.[id number]:01/09/2025 Patient: Oly JONES :1970 A ge:54 Y S ex:Female Address:[address] [place], [address] * Refills Refill levETIRAcetam Tablet Disintegrating Soluble, 1000 MG, Orally, 14 Tablet, 1 tablet, every 12 hrs, 7 days, Refills=0 * true * Date: Generated for Printi ng/Faxing/eTransmitting on: 0 02/08/2025 03:53 AM EDT
--- OUTSIDE RECORDS SUMMARY | 2025-01-10 10:13 | XMS_ITS ---
Author Organization The [facility] in [place] Address [address] [place] [address] Care Team Providers Care Gift Packer Name Role Phone Judi Tapia Primary Care Provider [phone] REASON FOR VISIT chart update Medications Medication SIG (Take, Route, Fr equency, Duration) Notes Start Date End Date Status Lisinopril 20 MG 1 tablet Orally Once a day for 30 days 03/20/2024 Active Encounters Encounter Location Date Provider Diagnosis [facility] [address] [place] [address] 01/10/2025 Judi Tapia Plan Of Treatment Medication Medication Name Sig Start Date Stop Date Notes Lisinopril 20 MG 1 tablet Orally Once a day for 30 days Progress Notes * Oly CARDOSODOB:[birth year] (54 yo F)Acc No.[id number]:01/10/2025 Patient: Oly JONES :1970 A ge:54 Y S ex:Female Address:[address] [place], [address] * Refills Refill Lisinopril Tablet, 20 MG, Orally, 30, 1 tablet, Once a day, 30 days * true * Date: Generated for Printi ng/Faxing/eTransmitting on: 0 02/08/2025 03:54 AM EDT
[2025-02-08 03:49] VITALS: BP 155/106; PULSE 90; TEMP 36.5; O2SAT 97; BMI 29.3
--- OUTSIDE RECORDS SUMMARY | 2025-02-08 03:53 | XMS_ITS | Clinical Summary ---
Author Organization [facility] Address [address] [place] [address] Care Team Providers Care Neurological Surgeon Name Role Phone Ny Joel Onel Primary Care Provider [phone] Rafa Rangel Unavailable [phone] Allergies Active Allergy Reactions Criticality Noted Date Comments Cyclobenzaprine Swelling High 04/28/2018 Penicillin Swelling High 04/28/2018 Medications * This document contains information received from the source organization and may not represent a complete record from that organization. pantoprazole DR (PROTONIX) 40 mg tablet 04/13/2018 Active promethazine (PHENERGAN) 25 mg tablet 03/25/2018 Active dicyclomine (BENTYL) 20 mg tablet Take 20 mg by mouth before meals and at bedtime. Active pantoprazole DR (PROTONIX) 40 mg tablet Take 1 tablet by mouth two times a day. 60 tablet 08/25/2023 Active Active Problems Problem Noted Date Diagnosed Date Hiatal hernia 04/28/2018 Morbid obesity 04/28/2018 Social History Tobacco Use Types Packs/Day Years Used Date Smoking Tobacco: Former Cigarettes 1 987 - 2011 Smokeless Tobacco: Never Tobacco Cessation:Counseling Given: Not Answered Comments: still smokes Alcohol Use Standard Drinks/Week Comments Not Currently 0 (1 standard drink = 0.6 oz pur e alcohol) social PHQ-2 Answer Date Recorded PHQ-2 score 4 07/08/2023 Area Deprivation Index Answer Date Stephane rded National Score (1-100), lower number is lower ri sk 86 05/06/2023 State Score (1-10), lower number is lower risk 8 05/06/2023 Data from: https://www.neighborhoodatlas.[facility]/. Last address used for calculation [address] 05/06/2023 Comments No Sex and Gender Information Value Date Recorded Sex Assigned at Not on file Legal Sex Female 1:47 PM EDT Gender Identity Not on file Sexual Orientation Not on file Last Filed Vital Signs Vital Sign Reading Time Taken Comments Blood Pressure 166/81 08/25/2023 4:20 PM EST Pulse 67 08/25/2023 4:20 PM EST Temperature 36 C (96.8 F) 08/25/2023 3:48 PM EST Respiratory Rate 16 08/25/2023 4:20 PM EST Oxygen Saturation 97% 08/25/2023 4:20 PM EST Inhaled Oxygen Concentration - - Weight 83.5 kg (184 lb) 08/25/2023 1:50 PM EST Height 170.2 cm (5' 7 ) 08/25/2023 1:50 PM EST Body Mass Index 28.82 08/25/2023 1:50 PM EST Plan of Treatment Health Maintenance Due Date Last Done Comments Anxiety Screening 1988 Depression Screening 1988 HIV Screening 1988 Hepatitis C Screening 1988 DTaP,Tdap,Td Vaccine (1 - Tdap) 1989 Hepatitis B Vaccine (1 of 3 - 19+ 3-dose series) 1989 Cervical Cancer Screening [address] M[address] Colonography 2015 Cologuard (FIT-DNA) 2015 Colonoscopy 2015 Colorectal Cancer Screening 2015 Diabetes Screening 2015 Fecal Occult Blood 2015 Lipid Screening 2015 Sigmoidoscopy 2015 Pneumococcal Vaccine: 50+ (1 of 1 - PCV) 2020 Shingrix Vaccine (1 of 2) 2020 Covid-19 Vaccine (2023-2 5 season) 2024 06/15/2022, 03/18/2022, 11/06/2021, Additional history exists Influenza Vaccine (Season Ended) 2025 06/09/20 22 Insurance BLUE ACCESS PPO Care Teams Neurological Surgeon Relationship Specialty Start Date End Date Joel Alejandra DO PCP - General Family Medicine 04/26/18 Rafa Rangel [address] [place] [phone] Referring General Surgery 04/26/18
--- OUTSIDE RECORDS SUMMARY | 2025-02-08 03:53 | XMS_ITS | Encounter Summary ---
Author Organization [facility] Address [address] [place] [address] Care Team Providers Care Sba Business Development Officer Name Role Phone Joel Alejandra DO Primary Care Provider [phone] Rafa Rangel Unavailable [phone] Source Comments In the event this information is protected by the Federal Confidentiality of Alcohol and Drug AbusePatient Records regulations: The Federal rules restrict any use of the information to criminally investigate or prosecute any alcohol or drug abuse patient.[facility] Encounter Details Date Type Department Care Team (Late st Contact Info) Description 06/28/2023 Patient Msg General Surgery [address] [phone] Evelyn Berger, RN EGD Social History Tobacco Use Types Packs/Day Years Used Date Smoking Tobacco: Former Cigarettes 1 - 2011 Smokeless Tobacco: Never Comments: still smoke s Alcohol Use Standard Drinks/Week Comments Yes 0 (1 standard drink = 0.6 oz pur e alcohol) social Area Deprivation Index Answer Date Stephane rded National Score (1-100), lower number is lower ri sk 86 05/06/2023 State Score (1-10), lower number is lower risk 8 05/06/2023 Data from: https://www.neighborhoodatlas.[facility].edu/. Last address used for calculation [address] 05/06/2023 Comments No Sex and Gender Information Value Date Recorded Sex Assigned at Not on file Legal Sex Female 1:47 PM EDT Gender Identity Not on file Sexual Orientation Not on file documented as of this encounter Plan of Treatment Not on file documented as of this encounter Visit Diagnoses Not on filedocumented in this encounter Care Teams Sba Business Development Officer Relationship Specialty Start Date End Date Joel Alejandra DO PCP - General Family Medicine 04/26/18 Rafa Rangel [address] [place] [phone] Referring General Surgery 04/26/18 documented as of this encounter
--- OUTSIDE RECORDS SUMMARY | 2025-02-08 03:53 | XMS_ITS | Encounter Summary ---
Author Organization [facility] Address [address] [place] [address] Phone Care Team Providers Care Rate Quoting Operator Name Role Phone Unavailable Primary Care Provider Unavailabl e Encounter Details Date Type Department Care Team (Late st Contact Info) Description 03/26/2023 Orders Only [facility] [address] [place] [address] Conversion, Onbase Social History Tobacco Use Types Packs/Day Years Used Date Smoking Tobacco: Never Assessed Comments Unknown Sex and Gender Information Value Date Recorded Sex Assigned at Not on file Legal Sex Female 1:11 PM EDT Gender Identity Not on file Sexual Orientation Not on file documented as of this encounter Plan of Treatment Scheduled Orders Name Type Priority Associated Diagnoses Orde r Schedule OUTSIDE LAB SCAN Lab Ordered: 03/26/2023 documented as of this encounter Visit Diagnoses Not on filedocumented in this encounter
--- OUTSIDE RECORDS SUMMARY | 2025-02-08 03:53 | XMS_ITS | Clinical Summary ---
Author Organization [facility] Address [address] [place] [address] Care Team Providers Care Tafe Teacher Name Role Phone Judi Tapia CRIME VICTIM SPECIALIST - CARBONATOR Primary Care Provide r Allergies Active Allergy Reactions Criticality Noted Date Comments Cyclobenzaprine Other (See Comments),Swelling High 04/28/2018 Other Reaction(s): Other, Swelling of Lip/Tongue/Throat, throat swelling Penicillamine Rash Low 05/01/2024 Penicillins Other (See Comments),Rash,Swelling High 04/28/2018 Medications acarbose (PRECOSE) 25 MG tablet Take 1 tablet by mouth 2 times daily 07/16/2024 Active vitamin D (VITAMIN D3) 50 MCG (1999) CAPS capsule Take 1 capsule by mouth daily 05/01/2024 Active dicyclomine (BENTYL) 20 MG tablet Take 1 tablet by mouth Active lisinopril (PRINIVIL;ZESTR IL) 10 MG tablet Take 1 tablet by mouth every morning Active metoprolol succinate (TOPROL XL) 50 MG extended release tablet Take 1 tablet by mouth daily Active pantoprazole (PROTONIX) 40 MG tablet Take 1 tablet by mouth daily 08/25/2023 Active sertraline (ZOLOFT) 50 MG tablet Take 1 tablet by mouth daily Active hyoscyamine (ANASPAZ;LEVSIN ) 0.125 MG tablet Take 1 tablet by mouth every 4 hours as needed for Cramping Active promethazine (PHENERGAN) 25 MG tablet Take 1 tablet by mouth every 6 hours as needed for Nausea Active Active Problems Problem Noted Date Diagnosed Date Generalized abdominal pain 08/30/2024 Primary hypertension 08/29/2024 Gastroesophageal reflux dise ase with esophagitis without hemorrhage 08/29/2024 Major depressive disorder 08/29/2024 Hypokalemia 08/29/2024 Ileus 08/28/2024 Other dysphagia 08/15/2024 Social History Tobacco Use Types Packs/Day Years Used Date Smoking Tobacco: Former Cigarettes Smokeless Tobacco: Never Tobacco Cessation:Counseling Given: Not Answered Alcohol Use Standard Drinks/Week Comments Yes 0 (1 standard drink = 0.6 oz pur e alcohol) Rare [facility] Utilities Answer Date Recorded In the past 12 months has th e electric, gas, oil, or water company threatened to shut off services in your home? No 08/28/2024 AUDIT-C Answer Date Recorded Q1: How often do you have a drink containing alcohol? Never 08/28/2024 Q2: How many drinks containi ng alcohol do you have on a typical day when you are drinking? Patient does not drink Q3: How often do you have si x or more drinks on one occasion? Never 08/28/2024 Hunger Vital Sign Answer Date Recorded Within the past 12 months, y ou worried that your food would run out before you got the money to buy more. Never true 08/28/20 Within the past 12 months, t he food you bought just didn't last and you didn't have money to get more. Never true 08/28/2024 PRAPARE - Transportation Answer Date Re corded In the past 12 months, has l ack of transportation kept you from medical appointments or from getting medications? No 08/06 In the past 12 months, has l ack of transportation kept you from meetings, work, or from getting things needed for daily living? No 08/28/2024 Housing Stability Vital Sign Answer Yamil e Recorded In the last 12 months, was t here a time when you were not able to pay the mortgage or rent on time? No 08/28/2024 In the past 12 months, how m any times have you moved where you were living? 0 08/28/2024 At any time in the past 12 m [facility], were you homeless or living in a senior living (including now)? No 08/28/2024 Food Insecurity Answer Date Recorded Within the past 12 months, y ou worried that your food would run out before you got the money to buy more. 1 08/28/2024 Within the past 12 months, t he food you bought just didn't last and you didn't have money to get more. 1 08/28/2024 Interpersonal Safety Domain Source: IP Abuse Scr eening Answer Date Recorded Physical abuse Denies 08/28/2024 Verbal abuse Denies 08/28/2024 Emotional abuse Denies 08/28/2024 Financial abuse Denies 08/28/2024 Sexual abuse Denies 08/28/2024 Comments No Sex and Gender Information Value Date Recorded Sex Assigned at Not on file Legal Sex Female 1:06 PM EST Gender Identity Not on file Sexual Orientation Not on file Last Filed Vital Signs Vital Sign Reading Time Taken Comments Blood Pressure 144/89 08/30/2024 7:25 AM EST Pulse 61 08/30/2024 7:25 AM EST Temperature 36.6 C (97.9 F) 08/30/2024 7:25 AM EST Respiratory Rate 16 08/30/2024 7:25 AM EST Oxygen Saturation 96% 08/30/2024 7:25 AM EST Inhaled Oxygen Concentration - - Weight 83.5 kg (184 lb 1.4 oz) 08/28/2024 4:30 P M EST Height 170.2 cm (5' 7.01 ) 08/28/2024 4:30 PM ES T Body Mass Index 28.82 08/28/2024 4:30 PM EST Plan of Treatment Health Maintenance Due Date Last Done Comments Depression Monitoring 1982 HIV screen 1985 Hepatitis C screen 1988 DTaP/Tdap/Td vaccine (1 - Tdap) 1989 Hepatitis B vaccine (1 of 3 - 19+ 3-dose series) 1989 Diabetes screen 2005 Breast cancer screen 2010 Lipids 2010 Colonoscopy 2015 Colorectal Cancer Screen 2015 FIT/FOBT: Average risk 2015 Fecal-DNA (Cologuard): Average risk 2015 Sigmoidoscopy/CT colonography 2015 Pneumococcal 50+ years Vaccine (1 of 1 - PCV) 2020 COVID-19 Vaccine ( season) 2024 06/15/2022, 03/18/2022, 11/06/2021, Additional history exists Shingles vaccine (2 of 2) 06/22/2024 04/27/2024 Flu vaccine (Season Ended) 2025 06/09/2022 Hepatitis A vaccine Aged Out No longe r eligible based on patient's age to complete this topic Hib vaccine Aged Out No longer eligi ble based on patient's age to complete this topic Meningococcal (ACWY) vaccine Aged Out No longer eligible based on patient's age to complete this topic Meningococcal B vaccine Aged Out No l onger eligible based on patient's age to complete this topic Polio vaccine Aged Out No longer elig ible based on patient's age to complete this topic [place] * Full Code (Latest Code Status on File) Date Activated Date Inactivated Comments 08/28/2024 3:16 PM 08/30/2024 6:26 PM Care Teams Tafe Teacher Relationship Specialty Start Date End Date Judi Tapia, CRIME VICTIM SPECIALIST - CARBONATOR [address] [place] [address] PCP - General 08/29/24
--- OUTSIDE RECORDS SUMMARY | 2025-02-08 03:53 | XMS_ITS | Encounter Summary ---
Author Organization [facility] Address [address] [place] [address] Care Team Providers Care Sap Portal Consultant Name Role Phone Joel Alejandra Primary Care Provider [phone] Rafa Rangel Unavailable [phone] Source Comments In the event this information is protected by the Federal Confidentiality of Alcohol and Drug AbusePatient Records regulations: The Federal rules restrict any use of the information to criminally investigate or prosecute any alcohol or drug abuse patient.[facility] Encounter Details Date Type Department Care Team (Late st Contact Info) Description 06/16/2023 Patient Msg General Surgery [address] [id number] Provider, [facility] Upcoming appointments Social History Tobacco Use Types Packs/Day Years [...] is lower risk 8 05/06/2023 Data from: https://www.neighborhoodatlas.medicine.[facility].edu/. Last address used for calculation [address] [...] on filedocumented in this encounter Care Teams Sap Portal Consultant Relationship Specialty Start Date End Date Joel Alejandra DO PCP - General Family Medicine 04/26/18 Rafa Rangel [address] [place] [phone] Referring General Surgery 04/26/18 documented as of this encounter
--- OUTSIDE RECORDS SUMMARY | 2025-02-08 03:54 | XMS_ITS | Clinical Summary ---
Author Organization [facility] Address [address] [place] [address] Phone Care Team Providers Care Aircraft Maintenance Technician Name Role Phone Unavailable Primary Care Provider Unavailabl e Social History Tobacco Use Types Packs/Day Years Used Date Smoking Tobacco: Never Assessed Comments Unknown Sex and Gender Information Value Date Recorded Sex Assigned at Not on file Legal Sex Female 1:11 PM EDT Gender Identity Not on file Sexual Orientation Not on file Plan of Treatment Health Maintenance Due Date Last Done Comments CT Colonography 1970 Colonoscopy 1970 Colorectal Cancer Screening 1970 FIT-DNA (Cologuard) 1970 FIT 1970 HIV Screening 1970 Lipid Panel 1970 Sigmoidoscopy 1970 Yearly Adult Physical 1970 MMR Vaccines (1 of 1 - Stand yas series) 1971 Hepatitis C Screening 1988 Hepatitis B Vaccines (1 of 3 - 19+ 3-dose series) 1989 Cervical Cancer Screening 1991 HPV/Cotest 1991 Pap Smear 1991 DTaP/Tdap/Td Vaccines (1 - Tdap) 1992 Mammogram 2010 Pneumococcal Vaccine (1 of 1 - PCV) 2020 Zoster Vaccines (1 of 2) 2020 COVID-19 Vaccine (1 - 2023-2 5 season) 2024 Influenza Vaccine (Season Ended) 2025 HIB Vaccines Aged Out No longer eligi ble based on patient's age to complete this topic HPV Vaccines Aged Out No longer eligi ble based on patient's age to complete this topic Hepatitis A Vaccines Aged Out No long er eligible based on patient's age to complete this topic IPV Vaccines Aged Out No longer eligi ble based on patient's age to complete this topic Meningococcal Vaccine Aged Out No miranda clay eligible based on patient's age to complete this topic Rotavirus Vaccines Aged Out No longer eligible based on patient's age to complete this topic
--- OUTSIDE RECORDS SUMMARY | 2025-02-08 03:54 | XMS_ITS | Clinical Summary ---
Author Organization [facility] Address [address] [place] [address] Care Team Providers Care Excelsior Machine Feeder Name Role Phone Judi Tapia REJI Primary Care Provider [phone] Allergies Active Allergy Reactions Criticality Noted Date Comments Cyclobenzaprine Other,Swelling High 04/28/2018 Penicillins Other,Rash,Swelling High 04/28/2018 Medications Medication Sig Dispensed Refills Start Date End Date Status sertraline (Zoloft) 50 mg tablet Take 50 mg by mouth in the morning. 01/29/2024 Active lisinopril 10 mg tabletIndications:Ess ential hypertension Take 1 tablet (10 mg) by mouth in the morning. 30 tablet 11 03/19/2024 03/19/2025 Active pantoprazole (ProtoNix) 40 mg EC tablet Take 40 mg by mouth before breakfast. 12/05/2023 Active acarbose (Precose) 25 mg tablet Take 1 tablet by mouth in the morning and at bedtime. 07/13/2024 Active metoprolol succinate XL (Toprol-XL) 50 mg 24 hr tabletIndications:Ess ential hypertension TAKE 1 TABLET (50 MG) BY MOUTH IN THE MORNING DO NOT CRUSH OR CHEW 90 tablet 3 12/03/2024 12/03/2025 Active levETIRAcetam (Keppra) 750 mg tablet Take 750 mg by mouth. Active aspirin 81 mg EC tablet Take 81 mg by mouth in the morning. 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 Abdominal pain 02/15/2024 Dark stools 02/15/2024 Diarrhea 02/15/2024 Dysphagia 02/15/2024 Elevated troponin 02/15/2024 Epigastric abdominal pain 02/15/2024 Gallstone 02/15/2024 Gastroparesis 02/15/2024 Hard stool 02/15/2024 Heartburn 02/15/2024 Acid reflux 02/15/2024 Essential hypertension 02/15/2024 History of repair of hiatal hernia 02/15/2024 Hx of urinary tract infection 02/15/2024 Irregular bowel habits 02/15/2024 Kidney stones 02/15/2024 Migraines 02/15/2024 Constipation 02/15/2024 Overweight (BMI 25.0-29.9) 02/15/2024 Proteinuria 02/15/2024 Seizures 02/15/2024 Strain of lumbar region 02/15/2024 Urinary urgency 02/15/2024 UTI (urinary tract infection) 02/15/2024 Palpitations 02/15/2024 Sinus tachycardia 02/15/2024 CA (dyspnea on exertion) 02/15/2024 Obstructive sleep apnea 02/15/2024 Former smoker 02/15/2024 Resolved Problems Problem Noted Date Diagnosed Date Resolved Date Morbid obesity 04/28/2018 05/14/2024 Encounters Date Type Department Care Team Description 02/04/2025 Telephone [facility] [address] [place] [address] DerrickRos robles MA 01/11/2025 Orders Only [facility] [address] [place] [address] Elio Heart MD Other chest pain (Primary Dx) 12/28/2024 1:20 PM EDT Office Visit [facility] [address] [place] [address] Elio Heart MD Other chest pain (Primary Dx); Palpitations; Sinus tachycardia; CA (dyspnea on exertion); Essential hypertension; Overweight (BMI 25.0-29.9); Former smoker 12/20/2024 Telephone [facility] [address] [place] [address] Christina Plummer MA 12/01/2024 Refill [facility] [address] [place] [address] Elio Heart MD Essential hypertension from Last 3 Months Family History Medical History Relation Name Comments Coronary artery disease Brother Heart attack Father Relation Name Status Comments Brother Father Mother Alive Sister Alive Social History Tobacco Use Types Packs/Day Years Used Date Smoking Tobacco: Former Cigarettes Smokeless Tobacco: Never Tobacco Cessation:Counseling Given: Not Answered Alcohol Use Standard Drinks/Week Comments Yes 0 (1 standard drink = 0.6 oz pur e alcohol) seldom [place] Safety & Environment Answer Date Rec orded Fear of Current or Ex-Partner Not on file Emotionally Abused Not on file 02/08/2024 Physically Abused Not on file 02/08/2024 Sexually Abused Not on file 02/08/2024 Physically or Sexually Abused Not on file Sex and Gender Information Value Date Recorded Sex Assigned at Not on file Gender Identity Not on file Sexual Orientation Not on file Last Filed Vital Signs Vital Sign Reading Time Taken Comments Blood Pressure 150/91 12/28/2024 2:54 PM EDT Pulse 51 12/28/2024 2:54 PM EDT Temperature 36.4 C (97.6 F) 05/22/2019 1:22 PM EDT Respiratory Rate - - Oxygen Saturation 98% 12/28/2024 2:54 PM EDT Inhaled Oxygen Concentration - - Weight 83 kg (183 lb) 12/28/2024 2:54 PM EDT Height 170.2 cm (5' 7 ) 12/28/2024 2:54 PM EDT Body Mass Index 28.66 12/28/2024 2:54 PM EDT Plan of Treatment Upcoming Encounters Date Type Department Care Team (Late st Contact Info) Description 02/28/2025 9:40 AM EDT Office [facility] [address] [place] [address] Elio Heart MD [address] [place] [address] Health Maintenance Due Date Last Done Comments CT Colonography 1970 FIT-DNA 1970 FIT 1970 Sigmoidoscopy 1970 Depression Screening 1982 Hepatitis B Vaccines (1 of 3 - 19+ 3-dose series) 1989 Pap Smear 1991 Adult Tetanus 1992 Cervical Cancer Screening 2000 HPV/Cotest 2000 Mammogram 2010 FOBT 08/15/2020 08/15/2019 COVID-19 Vaccine ( season) 2024 06/15/2022, 03/18/2022, 11/06/2021, Additional history exists Zoster Vaccines (2 of 2) 06/22/2024 04/27/2024 Influenza Vaccine (Season Ended) 2025 06/09/2022 Colonoscopy 03/13/2030 03/13/2020, 05/17/2019 Colorectal Cancer Screening 03/13/2030 HIB Vaccines Aged Out No longer eligi ble based on patient's age to complete this topic HPV Vaccines Aged Out No longer eligi ble based on patient's age to complete this topic IPV Vaccines Aged Out No longer eligi ble based on patient's age to complete this topic Meningococcal B Vaccine Aged Out No l onger eligible based on patient's age to complete this topic Meningococcal Vaccine Aged Out No miranda clay eligible based on patient's age to complete this topic Pneumococcal Vaccine: Pediatrics (0 to 5 Years) and At-Risk Patients (6 to 64 Years) Aged Out No longer eligible based on patient's age to complete this topic Rotavirus Vaccines Aged Out No longer eligible based on patient's age to complete this topic Procedures Procedure Name Priority Date/Time Associated Diagnosis Comments OCCULT BLOOD X 1, STOOL STAT 08/15/2019 10:20 PM EST from Last 3 Months or Most Recently Relevant to Health Maintenance Results * Occult blood x 1, stool (08/15/2019 10:20 PM EST) Fecal Occult Bld NEGATIVE NEGATIVE LAB CONVERSIONS 08/15/2019 10:2 0 PM EST 08/15/2019 10:49 PM EST Narrative LAB CONVERSIONS - 08/16/2019 6:50 AM EST No: Do not add to previous draw Sesar Adair MD LAB BODY FLUIDS AND STOOLS ORDERABLES LAB CONVERSIONS from Last 3 Months or Most Recently Relevant to Health Maintenance Care Teams Excelsior Machine Feeder Relationship Specialty Start Date End Date Judi Tapia CNP [address] [facility], [place] [address] PCP - General Family Medicine 02/14/24
--- OUTSIDE RECORDS SUMMARY | 2025-02-08 03:54 | XMS_ITS | Referral Summary ---
Author Organization [facility] Address [address] [place] [address] Care Team Providers Care Flight Security Specialist Name Role Phone Judi Tapia REJI Primary Care Provider [phone] Encounters Date Type Department Care Team Description 02/04/2025 Telephone [facility] [address] [place] [address] Ros Meza MA 01/11/2025 Orders Only [facility] [address] [place] [phone] Elio Heart MD Other chest pain (Primary Dx) 12/28/2024 1:20 PM EDT Office Visit [address] [place] [address] Elio Heart MD Other chest pain (Primary Dx); Palpitations; Sinus tachycardia; CA (dyspnea on exertion); Essential hypertension; Overweight (BMI 25.0-29.9); Former smoker 12/20/2024 Telephone [facility] [address] [place] [address] Christina Plummer MA 12/01/2024 Refill [facility] [address] [place] [address] Elio Heart MD Essential hypertension from Last 3 Months Allergies Active Allergy Reactions Criticality Noted Date [...] Date Resolved Date Morbid obesity 04/28/2018 05/14/2024 Social History Tobacco Use Types Packs/Day Years [...] Description 02/28/2025 9:40 AM EDT Office Visit [facility] [address] [place] [address] Elio Heart MD [address] [place] [address] Procedures Procedure Name Priority Date/Time Associated Diagnosis [...] Recently Relevant to Health Maintenance Care Teams Flight Security Specialist Relationship Specialty Start Date End Date Judi Tapia CNP [address] [facility], [place] [address] PCP - General Family Medicine 02/14/24
--- OUTSIDE RECORDS SUMMARY | 2025-02-08 03:54 | XMS_ITS | Encounter Summary ---
Author Organization [id number] [address] [place] [address] Care Team Providers Care Supervisory Forester Name Role Phone Judi Tapia BOARD RUNNER-NOVELTY BALLOON ASSEMBLER AND PACKER Primary Care Provider Reason for Referral * Diagnostic Imaging (Routine) - Closed Specialty Diagnoses / Procedures Referred By Eileen mueller Referred To Contact Radiology Diagnoses Pain Procedures CT abdomen and pelvis without contrast [facility] [employer] [facility] [place] [address] Phone: tel: fax: Referral ID Status Reason Start Date Expiration Date Visits Re quested Visits Authorized [id number] Closed 12/01/2023 11/30/2024 1 1 Encounter Details Date Type Department Care Team (Late st Contact Info) Description 12/01/2023 Orders Only [facility] [employer] [facility] [place] [address] Transcribe, Orders Support User Pain (Primary Dx) Social History Tobacco Use Types Packs/Day Years Used Date Smoking Tobacco: Never Assessed Comments Unknown Sex and Gender Information Value Date Recorded Sex Assigned at Not on file Legal Sex Female 2:17 PM EDT Gender Identity Not on file Sexual Orientation Not on file documented as of this encounter Plan of Treatment Not on file documented as of this encounter Procedures Procedure Name Priority Date/Time Associated Diagnosis Comments MULTIPLE LABS Routine 11/28/2023 documented in this encounter Results * Fluoroscopy small bowel (11/28/2023 11:10 AM EDT) us Scanning Provider External IMG FLUOROSCOPY ORDER CASSANDRA Final Result Performing Organization Address [facility] Co de Phone Number MANUALLY TRANSCRIBED RESULTS * Fluoroscopy esophagus (11/28/2023 8:20 AM EDT) us Scanning Provider External IMG FLUOROSCOPY ORDER CASSANDRA Final Result Performing Organization Address [facility] Co de Phone Number MANUALLY TRANSCRIBED RESULTS * Multiple labs (11/28/2023) us Not In System Ref Prov [place] IMAGING Edited Re sult - Final Performing Organization Address [facility] Co de Phone Number MANUALLY TRANSCRIBED RESULTS * CT abdomen and pelvis without contrast (11/27/2023 7:20 AM EDT) us Scanning Provider External IMG CT ORDERABLES Fin al Result * X-ray abdomen complete series with pa chest (10/13/2023 5:50 AM EST) us Scanning Provider External IMG DIAGNOSTIC IMAGIN G ORDERABLES Final Result documented in this encounter Visit Diagnoses Diagnosis Pain- Primary Generalized pain documented in this encounter Care Teams Supervisory Forester Relationship Specialty Start Date End Date Judi Tapia APRN-NOVELTY BALLOON ASSEMBLER AND PACKER [address] [place] [phone] PCP - General Family Medicine 12/01/23 documented as of this encounter
--- OUTSIDE RECORDS SUMMARY | 2025-02-08 03:54 | XMS_ITS | Patient Health Record ---
Author Organization [facility] Address [address] [place] [address] Care Team Providers Care Supervisor Costuming Name Role Phone Judi Tapia Primary Care Provider Samuel Steve Unavailable [phone] Nichole Lorenz Unavailable [phone] Allergies Allergen (clinical drug ingredient) Drug/Non Drug Allergy documented on EMR Reaction Allergy Type Onset Date Status penicillin (uncoded) Unknown Allergy Active Flexeril Unknown Drug Allergy Active Reason For Referral Reason APPROVED ........... ..............PLEASE OBTAIN AUTHORIZATION FOR LEFT KNEE MRI Diagnosis 1 Acute pain of left k nee (M25.562) Referral Organization [facility] Referring Provider First Name Nichole Referring Provider Last Name Elton Referring Provider Speciality Physician Nurse Esthetician Referred Organization [facility] dariana Referred Address [place], [place], Procedure 1 MRI Joint Lower Ext w/o Dye ([address]) General Notes Aicha Hooper 024 11:40:10 AM >APPROVED PER JAZZYJorge L VALID 07/02/2024-07/31/2024 COPY IN CHART MA NOTIFIED REF FAXED TO Mayda CONLEY Kimberly 07/02/2024 01:00:55 PM >Faxed order to [facility] Referral Priority Routine Reason APPROVED for MRI LT knee Diagnosis 1 Acute pain of left k nee (M25.562) Referral Organization [facility] Referring Provider First Name Ponce Referring Provider Last Name St Alanis Referring Provider Speciality Orthopedic Surgery Referred Organization [facility] Referred Address [address] [place],[address],[place] General Notes Denice Dao 09:18:02 AM >PLEASE CHECK NOTE FROM DOS 07/02/2024, Vanessa Brown 07/06/2024 10:09:23 AM >okFeliberto Charlotte 07/06/2024 02:54:52 PM >FAXED NOTE AND C9 FOR MRI LT KNEE, Marisela Varghese 07/11/2024 11:29:34 AM > rcvd c9 auth for MRI LT knee, see Chely trent Monica 07/12/2024 09:51:13 AM > faxed order Referral Priority Stat Reason AD 07/16 MRI FUP not e Diagnosis 1 Contusion of knee, l eft (S80.02XA) Referring Provider First Name Judi Referring Provider Last Name Regina Referring Provider Speciality Nurse Prac titioner Referred Organization [facility] Referred Address [address] [place],[address], General Notes Marisela Varghese 03:18:38 PM > 07/16 needing dictation please, Abimael mchugh Jessika 07/19/2024 10:48:16 AM > 07/16 can you please check dxjeison Meuleman, Lisa 07/20/2024 08:25:05 AM >Abimael tay Jessika 07/20/2024 08:39:07 AM > faxed note, mri report and [facility] Referral Priority Routine Reason AD BWC - RTW NO REST RICTIONS 08/07 Diagnosis 1 Contusion of left kn ee, subsequent encounter (S80.02XD) Referral Organization [facility] Referring Provider First Name Samuel Referring Provider Last Name Katiuska Referring Provider Speciality Orthopedic Surgery [facility] Address [address],[place], [place],[address], General Notes Marisela Varghese 03:31:51 PM > faxed note and medco Referral Priority Routine Social History Tobacco Use: Social History Observation Description Date Details (start date - stop date) Never Smoker NA - NA AUDIT-C (Standard) Question Answer Notes Did you have a drink containing alcohol in the p ast year? No Points 0 Interpretation Negative Tobacco Control (Standard) Question Answer Notes Tobacco use: Nonsmoker Problems Problem Type SNOMED Code ICD Code Onset Dates Problem Status W/U Status Risk Notes Problem Contusion of knee, left (S80.02XA) Active confirmed Problem Contusion of left knee ([id number]) Contusion of left knee, subsequent encounter (S80.02XD) Active confirmed Vital Signs Height 5'1 in 08/06/2024 Weight 182 lbs 08/06/2024 BMI 34.38 08/06/2024 Encounters Encounter Location Date Provider Diagnosis [facility] [address] [facility] ([place], [place]) [place] [address] 07/02/2024 Nichole Elton Effusion, left knee M25.462 and Contusion of knee, left S80.02XA [facility] [address] [facility] ([place], [place]) [place] [address] 07/16/2024 Nichole Lorenz Contusion of left knee, subsequent encounter S80.02XD [facility] [address] [facility] ([place], [place] [address] [place] [address] 08/06/2024 Samuel Harp Contusion of left knee, subsequent encounter S80.02XD Assessments Encounter Date Diagnosis (ICD Code) Assessment Notes Treatment Notes Treatment Clinical Notes Section Notes 07/02/2024 Contusion of knee, left (ICD-10 - S80.02XA) Left knee pain Left knee effusion 07/02/2024 Effusion, left knee (ICD-10 - M25.462) Left knee pain Left knee effusion 07/16/2024 Contusion of left knee, subsequent encounter (ICD-10 - S80.02XD) 08/06/2024 Contusion of left knee, subsequent encounter (ICD-10 - S80.02XD) 07/02/2024 Other For the patient 's left knee pain after a work-related fall it will order an MRI to evaluate for meniscus tear or occult fracture/bone contusion. Patient is ambulating with antalgic gait and I have recommended that she use the crutches that she has at home to offload some weight to help with the pain. She can continue to take Tylenol and RICE. We will see her back in the office after MRI is complete to review and offer further recommendations. I will keep her off work until she returns to review MRI results. Left knee pain Left knee effusion 07/16/2024 Other Today I reviewe d patient's MRI results with her. We will continue to treat her conservatively with weightbearing as tolerated with her crutches. We discussed that this will improve with time and rest. I have written her for work restrictions of seated duty only. We will see her back in 3 weeks for reevaluation. 08/06/2024 Other Patient is doing well after left knee work injury. She at this point can return to work without restrictions. She will follow-up on an as-needed basis. Import medication Plan Of Treatment Pending Test Test Name Order Date MRI : Knee W/O Contrast Left - 14485 Insurance Providers Payer Name Payer Address Payer Phone Subscriber Number Group Number Insured Name Patient Relationship to Insured Coverage Start Date Coverage End Date [place] [id number] [place] [address] [id number] DOI 24 lt knee CONSTANTINO CARDOSO Self - patient is the insured 4 [facility] [address] [place] [address] [id number] CONSTANTINO CARDOSO Self - patient is the insured Medical (General) History Medical History History ICD Code Heart problems: High Blood Pressure
--- OUTSIDE RECORDS SUMMARY | 2025-02-08 03:54 | XMS_ITS | Clinical Summary ---
Author Organization [facility] Address [address] [place] [address] Care Team Providers Care Community Health Specialist Name Role Phone Unallocated, Noms Provider Primary Care Provi christine Judi Tapia MD Unavailable [phone] Nikki Ayoub Unavailable Allergies Active Allergy Reactions Criticality Noted Date Comments Cyclobenzaprine Swelling High 04/28/2018 Other Reaction(s): Other, Swelling of Lip/Tongue/Throat, throat swelling Penicillamine Rash Low 05/01/2024 Penicillins Rash,Swelling High 04/28/2018 Medications cholecalciferol (Vitamin D-3) 50 MCG (1999) capsule Take 1 capsule by mouth Daily 05/01/2024 Active dicyclomine (Bentyl) 20 MG tablet Take 1 tablet by mouth in the morning and 1 tablet in the evening and 1 tablet before bedtime. Active hyoscyamine (Anaspaz,Levsin ) 0.125 MG tablet Take 1 tablet by mouth every 6 (six) hours if needed 05/01/2024 Active lisinopril 20 MG tablet Take 20 mg by mouth Daily 03/19/2024 5 Active metoprolol succinate XL (Toprol-XL) 50 MG 24 hr tablet Take 50 mg by mouth in the morning. 02/15/2024 5 Active pantoprazole (ProtoNix) 40 MG EC tablet Take 40 mg by mouth in the morning. Take before meals. 08/25/2023 Active sertraline (Zoloft) 50 MG tablet Take 50 mg by mouth in the morning. 01/29/2024 Active acarbose (Precose) 25 MG tabletIndicatio ns:Hypoglycemia Take 1 tablet (25 mg) by mouth in the morning and 1 tablet (25 mg) before bedtime. 180 tablet 3 07/13/2024 Active aspirin 81 MG EC tablet Take 81 mg by mouth Daily Active levETIRAcetam (Keppra) 1000 MG tabletIndicatio ns:Seizure (CMS/HCC) Take 1 tablet (1,000 mg) by mouth in the morning and 1 tablet (1,000 mg) before bedtime. 60 tablet 3 01/07/2025 Active Encounters Date Type Department Care Team Description 01/16/2025 Telephone [facility]PPER [facility] [phone] Marbin Wong ARRT Sleep Study Referral 01/07/2025 2:20 PM EDT Office Visit PEPPER CONLEY [address] [phone] Nikki Ayoub PA Seizure (CMS/HCC) (Primary Dx); History of obstructive sleep apnea; Migraine without aura and without status migrainosus, not intractable (CMS/HCC); Dizziness 01/07/2025 Bamboo flowsheet PEPPER BURLESONEVUE [address] [phone] Nikki Ayoub PA 11/26/2024 11:00 AM EDT Office Visit PEPPER CONLEY [address] [phone] Nikki Ayoub PA Seizure (CMS/HCC) (Primary Dx); History of obstructive sleep apnea; Migraine without aura and without status migrainosus, not intractable (CMS/HCC) 11/26/2024 Bamboo flowsheet PEPPER GARNETT [address] [phone] Nikki Ayoub PA from Last 3 Months Immunizations Immunization Administration Dates Next Due Influenza, seasonal, injectable 06/09/2022 Zoster, Recombinant 04/27/2024 Family History Medical History Relation Name Comments Alcohol abuse Brother Cancer Father Diabetes Sister Hypertension Sister Thyroid disease Sister Alcohol abuse Son Relation Name Status Comments Brother Daughter x 2 Alive Father Mother Alive Sister Alive Son Alive Social History Tobacco Use Types Packs/Day Years Used Date Smoking Tobacco: Former Cigarettes Smokeless Tobacco: Never Alcohol Use Standard Drinks/Week Comments Never 0 (1 standard drink = 0.6 oz pur e alcohol) Comments Unknown Sex and Gender Information Value Date Recorded Sex Assigned at Not on file Legal Sex Female 7:39 PM EDT Gender Identity Not on file Sexual Orientation Not on file Last Filed Vital Signs Vital Sign Reading Time Taken Comments Blood Pressure 142/92 01/07/2025 2:15 PM EDT Pulse 52 01/07/2025 2:15 PM EDT Temperature - - Respiratory Rate 16 01/07/2025 2:15 PM EDT Oxygen Saturation 98% 01/07/2025 2:15 PM EDT Inhaled Oxygen Concentration - - Weight 85.3 kg (188 lb) 01/07/2025 2:15 PM EDT Height 170.2 cm (5' 7 ) 01/07/2025 2:15 PM EDT Body Mass Index 29.44 01/07/2025 2:15 PM EDT Plan of Treatment Health Maintenance Due Date Last Done Comments CT Colonography 1970 FIT-DNA 1970 FIT 1970 FOBT 1970 Sigmoidoscopy 1970 Pap Smear 1991 Cervical Cancer Screening 2000 HPV/Cotest 2000 Mammogram 2010 Influenza Vaccine (Season Ended) 2025 06/09/20 22 Colonoscopy 03/13/2030 03/13/2020, 05/17/2019 Colorectal Cancer Screening 03/13/2030 Procedures Procedure Name Priority Date/Time Associated Diagnosis Comments LEVETIRACETAM LEVEL Routine 01/15/2025 2:45 PM ED T Seizure (CMS/HCC) from Last 3 Months Results * Levetiracetam level (01/15/2025 2:45 PM EDT) Blood Venous blood specimen / Unknown us Nikki HAQ LAB BLOOD ORDERABLES Final Resul t EXTERNAL LAB from Last 3 Months Insurance BCBS Care Teams Community Health Specialist Relationship Specialty Start Date End Date Unallocated, Noms Provider, [facility] [place] [address] PCP - General 04/25/23 Judi Tapia MD [facility] [place], [place] [phone] Referring Physician Family Medicine 04/25/23 Nikki Ayoub PA [address] [place] [id number] Physician Channeling Machine Runner Neurology 11/26/24
--- OUTSIDE RECORDS SUMMARY | 2025-02-08 03:54 | XMS_ITS | Encounter Summary ---
Author Organization [facility] Address [address] [place] [address] Care Team Providers Care Washtub Worker Helper Name Role Phone Joel Alejandra DO Primary Care Provider [phone] Rafa Rangelangelicanoemi Unavailable [phone] Source Comments In the event this information is protected by the Federal Confidentiality of Alcohol and Drug AbusePatient Records regulations: The Federal rules restrict any use of the information to criminally investigate or prosecute any alcohol or drug abuse patient.[facility] Encounter Details Date Type Department Care Team (Late st Contact Info) Description 05/27/2023 Patient Msg General Surgery [address] [phone] Evelyn Berger RN EGD/POP PROCEDURE WITH DR MONTOYA Social History Tobacco Use Types Packs/Day Years Used Date Smoking Tobacco: Former Cigarettes 2011 Smokeless Tobacco: Never Comments: still smoke s Alcohol Use Standard Drinks/Week Comments Yes 0 (1 standard drink = 0.6 oz pur e alcohol) social Area Deprivation Index Answer Date Stephane rded National Score (1-100), lower number is lower ri sk 86 05/06/2023 State Score (1-10), lower number is lower risk 8 05/06/2023 Data from: https://www.neighborhoodatlas.medicine.[facility].edu/. Last address used for calculation [address] [...] on filedocumented in this encounter Care Teams Washtub Worker Helper Relationship Specialty Start Date End Date Joel Alejandra DO PCP - General Family Medicine 04/26/18 Rafa Rangel [address] [phone] Referring General Surgery 04/26/18 documented as of this encounter
--- OUTSIDE RECORDS SUMMARY | 2025-02-08 03:54 | XMS_ITS | Encounter Summary ---
Author Organization [facility] Address [address] [place] [address] Care Team Providers Care Research Associate Quality Control Qc Name Role Phone Unallocated, Noms Edin BAKER Primary Care Provi christine Judi Tapia MD Unavailable [phone] Nikki Ayoub Unavailable Encounter Details Date Type Department Care Team (Late st Contact Info) Description 03/26/[address] [facility] [address] [facility] [address] [place] [phone] Rafa Rangel DO [address] [facility] [address] [place] [address] Social History Tobacco Use Types Packs/Day Years [...] on filedocumented in this encounter Care Teams Research Associate Quality Control Qc Relationship Specialty Start Date End Date Unallocated, Noms MD Edin [address] [place] [address] PCP - General 04/25/23 Judi Tapia MD [address] [place] [address] Referring Physician Family Medicine 04/25/23 Nikki Ayoub PA [address] [place], [place] [phone] Physician Public Relations Intern Neurology 11/26/24 documented as of this encounter
--- OUTSIDE RECORDS SUMMARY | 2025-02-08 03:54 | XMS_ITS | Encounter Summary ---
Author Organization [facility] Address [address] [place] [address] Care Team Providers Care Tractor Crane Operator Name Role Phone Judi Tapia REJI Primary Care Provider [phone] Encounter Details Date Type Department Care Team (Late st Contact Info) Description 02/04/2025 Telephone [facility] [address] [place] [address] Ros Meza MA Social History Tobacco Use Types Packs/Day Years Used Date Smoking Tobacco: Former Cigarettes Smokeless Tobacco: Never Alcohol Use Standard Drinks/Week Comments Yes 0 [...] on file documented as of this encounter Miscellaneous Notes * Telephone Encounter - Ros Meza MA - 02/04/2025 4:53 PM EDT Images from the original note were not included. Regarding stress test result from 01/18/2025: MD Ros Suarez MA Please inform the patient that her stress test is normal. Encourage exercise. Attempted to call patient but mailbox is full and is not accepting messages. documented in this encounter Plan of Treatment Upcoming Encounters Date Type Department Care Team (Late st Contact Info) Description 02/28/2025 9:40 AM EDT Office Visit [facility] [address] [place] [phone] Elio Heart MD [address] [place] [address] documented as of this encounter Visit Diagnoses Not on filedocumented in this encounter Care Teams Tractor Crane Operator Relationship Specialty Start Date End Date Judi Tapia CNP [address] [facility], [facility] [place] [address] PCP - General Family Medicine 02/14/24 documented as of this encounter
--- OUTSIDE RECORDS SUMMARY | 2025-02-08 03:54 | XMS_ITS | Patient Health Record ---
Author Organization [facility] in [place] Address [address] [place] [address] Care Team Providers Care Scagliola Mechanic Name Role Phone ReginaJudi butler Primary Care Provider Isaac Izaguirre Kye [phone] Allergies Allergen (clinical drug ingredient) Drug/Non Drug [...] ESTERASE (PETER) + NEG - NEG MG/DL MAGNESIUM Reviewed date:09/07/2024 11:32:59 AM Interpretation: Performing Lab: Notes/Report: [facility] , Magnesium 2.1 1.8-2.4 mg/dL Performing Lab: see note ML - [facility] LB RT pulmonary function test Reviewed date:03/13/2024 01:37:14 PM Interpretation: Performing Lab: Notes/Report: Source Facility: [facility]-[address] [place] [id number] [place] [id number] Respiratory Report Signed Patient: CONSTANTINO MENDIOLA MR#: [id number] : 1970 Acct:[id number] Age/Sex: 53 / F ADM Date: 03/13/24 Loc: CARD Attending Dr: Edison Heart M.D. Ordering Physician: Edison Heart M.D. Date of Service: 03/13/24 Procedure(s): RT pulmonary function test Accession Number(s): [id number] cc: [facility] Test Date: 2024-03-13 Pat Name: CONSTANTINO MENDIOLA Department: Room: - Gender: Female Tank Assembler: Richard Hawkins RRT : 1970 Requested By: 2211 Order Number: [id number] Reading MD: Wenceslao Merritt Interpretive Statements Pulmonary function testing was completed according to ATS criteria. Findings were considered accurate and reproducible, with exception of DLCO which only one trial due to equipment issues. No bronchodilator was administered due to normal spirometric values. No lung volumes were ordered. Spirometry: -FEV1/FVC: Normal @ 84% -FEV1: Normal @ 86% -FVC: Low normal @ 80% Diffusion capacity: -DLCO: Normal @ 83% when corrected for Hb 11.7g/dL Flow-volume loop: -Normal variant 'knee shape' Impressions: -Technically normal testing, though spirometry trends towards mild restriction. If asthma remains in the differential, may consider methacholine challenge testing. If there is concern about interstitial lung disease or other restrictive disorders, consider lung volumes. Clinical correlation required. Electronically Signed On 03-13-2024 12:52:52 EDT by Wenceslao Merritt Dictated By: Wenceslao Merritt D.O. Signed By: 03/13/24 1253 DD/ 0804 TD/TT: Dispatch Clerk: [place] [id number] Respiratory Report Signed Patient: ARIELLE MENDIOLA MR#: [id number] : 1970 Acct:[id number] Age/Sex: 53 / F ADM Date: 03/13/24 Loc: CARD Attending Dr: Edison Heart M.D. Ordering Physician: Edison Heart M.D. Date of Service: 03/13/24 Procedure(s): RT pulmonary function test Accession Number(s): [id number] cc: [facility] Test Date: 2024-03-13 Pat Name: CONSTANTINO MENDIOLA Department: 66 Room: - Gender: Female Tank Assembler: Richard Hawkins FILTROSE CRUSHER : 1970 Requ ested By: 2211 Order Number: [id number] Reading MD: Wenceslao Merritt Interpretive Statements Pulmonary function testing was completed according to ATS criteria. Findings were considered accu rate and reproducible, with exception of DLCO which only one trial due to equipment issues. No bronchodilator was administered due to normal spirometric values. No lung volumes were ordered. Spirometry: -FEV1/FVC: Normal @ 84% -FEV1: Normal @ 86% -FVC: Low normal @ 80% Diffusion capacity: -DLCO: Normal @ 83% when corrected for Hb 11.7g/dL Flow-volume loop: -Normal variant 'kne e shape' Impressions: -Technically normal testing, though spirometry trends towards mild restriction. If asth ma remains in the differential, may consider methacholine challenge testing. I f there is concern about interstitial lung disease or other restrictive disorders, consider lung volumes. Clinical correlation required. Electronically Priya d On 03-13-2024 12:52:52 EDT by Wenceslao Merritt Dictated By: Jorge L Merritt D.O. Signed By: 03/13/24 1253 DD/ 0804 TD/TT: Dispatch Clerk: PROF Fonseca(COMP METB) Reviewed date:04/16/2024 04:53:42 PM Interpretation: Performing Lab: Notes/Report: [facility] , Sodium 141 136-145 mmol/L Potassium 3.5 3.5-5.1 mmol/L Chloride 104 98-107 mmol/L Carbon Dioxide 26.5 21.0-32.0 mmol/L Anion Gap 14.0 Glucose 106 74-106 mg/dL Blood Urea Nitrogen 14.0 7.0-18.0 mg/dL Creatinine 0.87 0.55-1.02 mg/dL Estimated GFR ( Milagro >60 >=60 Estimated GFR (Non- Skylar >60 >=60 BUN Creatinine Ratio 16.1 Calcium 9.3 8.5-10.1 mg/dL Bilirubin Total 0.5 0.2-1.0 mg/dL Aspartate Amino Transferase 19 15-37 U/L Alanine Aminotransferase 28 14-59 U/L Alkaline Phosphatase 143 46-116 U/L Total Protein 7.2 6.4-8.2 g/dL Albumin Level 3.6 3.4-5.0 g/dL Globulin 3.6 Albumin Globulin Ratio 1.0 Performing Lab: see note ML - [facility] LB URINE MICROSCOPIC ONLY Reviewed date:04/16/2024 04:53:42 PM Interpretation: Performing Lab: Notes/Report: [facility] , WBC Urine NONE SEEN NONE SEEN #/HPF RBC Urine 0-2 0-2 #/HPF Bacteria Urine NONE SEEN NONE SEEN #/HPF Mucus Urine NONE SEEN NONE SEEN Squamous Epithelial Cell Urine RARE NONE/RARE #/LPF Crystals Seen? None Seen None Seen #/HPF Cast Seen? NONE SEEN NONE SEEN #/LPF Urine Culture Indicated NO Performing Lab: see note ML - [facility] LB Troponin I High Sensitivity Reviewed date:04/16/2024 04:53:42 PM Interpretation: Performing Lab: Notes/Report: [facility] , Troponin I High Sensitivity 28.4 4.0-51.3 pg/mL CUT-OFF POINTS HAVE BEEN ESTABLISHED BASED ON THE FOURTH UNIVERSAL DEFINITION OF MYOCARDIAL INFARCTION. THE UPPER REFERENCE LIMIT (URL) OF TROPONIN, DEFINED THE 99TH PERCENTILE OF cTnI DISTRIBUTION IN A REFERENCE POPULATION, HAS BEEN CONFIRMED THE DECISION THRESHOLD FOR ID DIAGNOSIS. 99TH PERCENTILE = 51.4 PG/ML NOTE: HIGH-SENSITIVITY TROPONIN ASSAY IS NOT INTENDED TO BE USED IN ISOLATION BUT SHOULD BE INTERPRETED IN CONJUNCTION WITH OTHER DIAGNOSTIC AND CLINICAL INFORMATION. Performing Lab: see note ML - [facility] LB CBC AUTO DIFF Reviewed date:06/04/2024 09:49:37 AM Interpretation: Performing Lab: Notes/Report: [facility] , White Blood Count 6.5 4.0-11.0 10 3/uL Red Blood Count 3.72 4.20-5.40 10 6/uL Hemoglobin 11.2 12.0-16.0 g/dL Hematocrit 34.6 36.0-48.0 % Mean Corpuscular Volume 93.0 81.0-99.0 fL Mean Corpuscular Hemoglobin 30.1 26.7-34.0 pg Mean Corpuscular HGB Conc 32.4 29.9-35.2 g/dL Red Cell Distribution Width 13.1 11.0-15.0 % Platelet Count 334 150-450 10 3/uL Mean Platelet Volume 9.3 9.5-13.5 fL Neutrophils Percent Auto 65.7 43.0-75.0 % Lymphocytes Percent Auto 22.2 20.5-60.0 % Monocytes Percent Auto 7.0 1.7-12.0 % Eosinophils Percent Auto 4.1 0.9-7.0 % Basophils Percent Auto 0.5 0.2-2.0 % Immature Granulocytes Pct Auto 0.5 0.0-0.5 % Neutrophils Absolute Auto 4.3 1.4-6.5 10 3/uL Lymphocytes Absolute Auto 1.5 1.2-3.8 10 3/uL Monocytes Absolute Auto 0.5 0.3-0.8 10 3/uL Eosinophils Absolute Auto 0.3 0.0-0.7 10 3/uL Basophils Absolute Auto 0.0 0.0-0.1 10 3/uL Immature Granulocytes Abs Auto 0.03 0.00-0.03 10 3/uL Performing Lab: see note ML - [facility] LB CT abdomen pelvis w con Reviewed date:06/04/2024 09:49:37 AM Interpretation: Performing Lab: Notes/Report: Source Facility: [place] [address] CT Scan Report Signed Patient: CONSTANTINO MENDIOLA MR#: [id number] : 1970 Acct:[id number] Age/Sex: 54 / F ADM Date: 06/01/24 Loc: ER Attending Dr: Ordering Physician: Kathrin Quiros Date of Service: 06/01/24 Procedure(s): CT abdomen pelvis w con Accession Number(s): [id number] cc: JUDI YOUSSEF [place] [address] Patient Name: CONSTANTINO MENDIOLA MRN: [id number] date: 1970 Sex: F Assigned Patient Location: ER Current Patient Location: ED.MAIN Accession/Order Number: [id number] Exam Date: 06/01/2024 22:21 Report Date: 06/01/2024 23:13 At the request of: KATHRIN QUIROS Procedure: CT abdomen pelvis w con EXAM: CT abdomen pelvis w con HISTORY: abdominal pain COMPARISON: CT abdomen and pelvis examination dated 04/13/2024. CT abdomen and pelvis examination dated 03/25/2023. CT abdomen and pelvis examination dated 12/15/2023. TECHNIQUE: Axial CT images through the abdomen and pelvis were obtained after the intravenous administration of contrast. Coronal and sagittal reformats were obtained. Dose reduction techniques were achieved by using automated exposure control and/or adjustment of mA and/or kV according to patient size and/or use of iterative reconstruction technique. FINDINGS: There is mild bibasilar atelectasis and/or scarring. There is a stable, likely benign 2 mm nodule in the left lower lobe (series 3, image 21). There is a small hiatal hernia. There are postsurgical changes at the gastroesophageal junction. Abdomen: The liver and spleen enhance homogeneously without focal lesion. The patient is status post a cholecystectomy. There is biliary prominence which is increased compared to the prior examinations. There is an indeterminate right renal lesion measuring up to 2.3 x 1.8 cm that previously measured approximately 2.1 x 1.3 cm on 12/15/2023 (series 3, image 46). The pancreas, adrenal glands, and bowel loops are unremarkable. There is no mesenteric or retroperitoneal lymphadenopathy. The appendix is not seen. Pelvis: The bladder and rectum are unremarkable. There is no iliac or inguinal lymphadenopathy. The uterus is not seen. Bone windows show no aggressive osseous lesions. CT/CT abdomen pelvis w con IMPRESSION: 1. No specific etiology identified to explain the patient's abdominal pain. 2. Status post cholecystectomy with biliary prominence which is increased compared to the prior examinations. This could be further evaluated with MRI if clinically indicated. 3. Indeterminate right renal lesion measuring up to 2.3 x 1.8 cm, previously 2.1 x 1.3 cm on 12/15/2023. This could be further evaluated with a nonemergent outpatient ultrasound or contrast enhanced MRI examination to exclude malignancy. 3. Status post hysterectomy and suspected appendectomy as the appendix is not seen. Electronically authenticated by: Mariajose TORRES Date: 06/01/2024 23:13 Dictated By: Kole Torres M.D. Signed By: 06/01/242315 DD/ 12 TD/TT: Dispatch Clerk: [address] [address] [address] Scan Report Signed Patient: ARIELLE MENDIOLA MR#: [id number] : 1970 Acct:[id number] Age/Sex: 54 / F ADM Date: 06/01/24 Loc: ER Attending Dr: Ordering Physician: Kathrin Quiros Date of Service: 06/01/24 Procedure(s): CT abd omen pelvis w con Accession Number(s): [id number] cc: JUDI YOUSSEF [place] [id number] Patient Name: CONSTANTINO MENDIOLA MRN: [id number] date: 1970 Sex: F Assigned Patient Location: ER Current Patient Loca tion: ED.MAIN Accession/Order Numb er: [id number] Exam Date: 06/01/2024 22:21 Report Date: 06/01/2024 23:13 At the request of: KATHRIN QUIROS Procedure: CT abdome n pelvis w con EXAM: CT abdomen pel vis w con HISTORY: abdominal pain COMPARISON: CT abdom en and pelvis examination dated 04/13/2024. CT abdomen and pelvis examination d ated 03/25/2023. CT abdomen and pelvis examination dated 12/15/2023. TECHNIQUE: Axial CT images through the abdomen and pelvis were obtained after the intravenous administration of contrast. Coronal and sagittal reformats were obtained. Dose reduction techn iques were achieved by using automated exposure control and/or adjustment of mA and/or kV according to patient size and/or use of iterative reconstruc tion technique. FINDINGS: There is mild bibasi lar atelectasis and/or scarring. There is a stable, likely benign 2 mm nodule i n the left lower lobe (series 3, image 21). There is a small hiatal hernia. There are postsurgical changes at the gastroesophageal junction. Abdomen: The liver a nd spleen enhance homogeneously without focal lesion. The patient is status po st a cholecystectomy. There is biliary prominence which is increased compared t o the prior examinations. There is an indeterm inate right renal lesion measuring up to 2.3 x 1.8 cm that previously measured approximately 2.1 x 1.3 cm on 12/15/2023 (series 3, image 46). The pancreas, adrena l glands, and bowel loops are unremarkable. There is no mesenteric or retroperitoneal lymphadenopathy. The appendix is not seen. Pelvis: The bladder and rectum are unremarkable. There is no iliac or inguinal lymphadenopathy. The uterus is not seen. Bone windows show no aggressive osseous lesions. C T/CT abdomen pelvis w con IMPRESSION: 1. No specific etiol ogy identified to explain the patient's abdominal pain. 2. Status post cholecystectomy with biliary prominence which is increased compared to the prio r examinations. This could be further evaluated with MRI if clinically indicated. 3. Indeterminate rig ht renal lesion measuring up to 2.3 x 1.8 cm, previously 2.1 x 1.3 cm on 12/15/2023. This could be further evaluated with a nonemergent outpatient ultrasoun d or contrast enhanced MRI examination to exclude malignancy. 3. Status post hysterectomy and suspected appendectomy as the appendix is not seen. Electronically authenticated by: Mariajose TORRES Date: 06/01/2024 23:13 Dictated By: Kole Torres M.D. Signed By: 06/01/242315 DD/ 12 TD/TT: Dispatch Clerk: MR branham wo con Reviewed date:07/10/2024 08:58:52 AM Interpretation: Performing Lab: Notes/Report: Source Facility: [place] [address] [place] [address] Magnetic Resonance Report Signed Patient: CONSTANTINO MENDIOLA MR#: [id number] : 1970 Acct:[id number] Age/Sex: 54 / F ADM Date: 07/09/24 Loc: MRI Attending Dr: Nichole HAQ Ordering Physician: Nichole Harden Date of Service: 07/09/24 Procedure(s): MR branham LT wo con Accession Number(s): [id number] cc: JUDI YOUSSEF ; Nichole Harden [place] [address] Patient Name: CONSTANTINO MENDIOLA MRN: [id number] date: 1970 Sex: F Assigned Patient Location: MRI Current Patient Location: MRI Accession/Order Number: [id number] Exam Date: 07/09/2024 08:50 Report Date: 07/09/2024 16:50 At the request of: NICHOLE HARDEN Procedure: MR knee LT wo con EXAM: MR knee LT wo con HISTORY: Acute Pain Of Left Knee. COMPARISON: 06/24/2024 TECHNIQUE: MRI images obtained with multiple sequences. MRI of the left knee without contrast. Sequences obtained by standard department protocol. FINDINGS: Anterior cruciate and posterior cruciate ligaments are intact. Medial collateral ligament and lateral supporting structures are intact. Medial meniscus is intact. Medial compartment articular cartilage is preserved. Lateral meniscus is intact. Lateral compartment articular cartilage is preserved. Extensor mechanism is intact. Bone marrow contusion of the inferior aspect of the patella. (Sagittal PD fat-sat image 9). Edema of the lateral aspect of Hoffa's fat pad, suggesting Hoffa's fat pad impingement. No knee joint effusion. No popliteal cyst. No significant subcutaneous soft tissue edema about the knee joint. No acute fractures. No popliteal cyst. MR/MR knee LT wo con IMPRESSION: 1. Bone marrow contusion of the inferior aspect of the patella. (Sagittal PD fat-sat image 9). 2. Edema of the lateral aspect of Hoffa's fat pad, suggesting Hoffa's fat pad impingement. 3. No knee joint effusion. 4. No acute fractures. Electronically authenticated by: PETROS GANDHI Date: 07/09/2024 16:50 Dictated By: Petros Gandhi M.D. Signed By: 07/09/241652 DD/ 49 TD/TT: Dispatch Clerk: [place] [address] Magnetic Resonance Report Signed Patient: ARIELLE MENDIOLA MR#: [id number] : 1970 Acct:[id number] Age/Sex: 54 / F ADM Date: 07/09/24 Loc: MRI Attending Dr: Blake Lerner Ordering Physician: Nichole Harden Date of Service: 07/09/24 Procedure(s): MR kingsley melara LT wo con Accession Number(s): [id number] cc: JUDI YOUSSEF ; Nichole Harden [place] [id number] Patient Name: CONSTANTINO MENDIOLA MRN: [id number] date: 1970 Sex: F Assigned Patient Location: MRI Current Patient Loca tion: MRI Accession/Order Numb er: [id number] Exam Date: 08:50 Report Date: 07/09/2024 16:50 At the request of: NICHOLE HARDEN Procedure: MR knee L T wo con EXAM: MR knee LT wo con HISTORY: Acute Pain Of Left Knee. COMPARISON: 06/24/2024 TECHNIQUE: MRI image s obtained with multiple sequences. MRI of the left knee without contrast. Sequences obtained by standard department protocol. FINDINGS: Anterior cruciate an d posterior cruciate ligaments are intact. Medial collateral ligament and lateral supporting structures are intact. Medial meniscus is intact. Medial compartment articular cartilage is preserved. Lateral meniscus is intact. Lateral compartment articular cartilage is preserved. Extensor mechanism i s intact. Bone marrow contusio n of the inferior aspect of the patella. (Sagittal PD fat-sat image 9). Edema of the lateral aspect of Hoffa's fat pad, suggesting Hoffa's fat pad impingement. No knee joint effusion. No popliteal cyst. No significant subcutaneous soft tissue edema about the knee joint. No acute fractures. No popliteal cyst. M R/MR knee LT wo con IMPRESSION: 1. Bone marrow contu imelda of the inferior aspect of the patella. (Sagittal PD fat-sat image 9). 2. Edema of the late ral aspect of Hoffa's fat pad, suggesting Hoffa's fat pad impingement. 3. No knee joint effusion. 4. No acute fractures. Electronically authenticated by: PETROS GANDHI Date: 07/09/2024 16:50 Dictated By: Judith Gandhi M.D. Signed By: 07/09/241652 DD/ 49 TD/TT: Dispatch Clerk: CBC AUTO DIFF Reviewed date:10/01/2024 12:35:56 PM Interpretation: Performing Lab: Notes/Report: [facility] , White Blood Count 9.4 4.0-11.0 10 3/uL Red Blood Count 4.69 4.20-5.40 10 6/uL Hemoglobin 13.8 12.0-16.0 g/dL Hematocrit 41.9 36.0-48.0 % Mean Corpuscular Volume 89.3 81.0-99.0 fL Mean Corpuscular Hemoglobin 29.4 26.7-34.0 pg Mean Corpuscular HGB Conc 32.9 29.9-35.2 g/dL Red Cell Distribution Width 13.0 11.0-15.0 % Platelet Count 439 150-450 10 3/uL Mean Platelet Volume 9.2 9.5-13.5 fL Neutrophils Percent Auto 72.3 43.0-75.0 % Lymphocytes Percent Auto 16.2 20.5-60.0 % Monocytes Percent Auto 9.9 1.7-12.0 % Eosinophils Percent Auto 0.0 0.9-7.0 % Basophils Percent Auto 0.1 0.2-2.0 % Immature Granulocytes Pct Auto 1.5 0.0-0.5 % Neutrophils Absolute Auto 6.8 1.4-6.5 10 3/uL Lymphocytes Absolute Auto 1.5 1.2-3.8 10 3/uL Monocytes Absolute Auto 0.9 0.3-0.8 10 3/uL Eosinophils Absolute Auto 0.0 0.0-0.7 10 3/uL Basophils Absolute Auto 0.0 0.0-0.1 10 3/uL Immature Granulocytes Abs Auto 0.14 0.00-0.03 10 3/uL Performing Lab: see note - [facility] LB CPK Reviewed date:10/01/2024 12:35:56 PM Interpretation: Performing Lab: Notes/Report: [facility] , Creatine Kinase 36 26-192 U/L Performing Lab: see note - [facility] LB LACTATE or LACTIC ACID Reviewed date:10/01/2024 12:35:56 PM Interpretation: Performing Lab: Notes/Report: [facility] , Lactate/Lactic Acid 2.4 0.4-2.0 mmol/L RESULT S CALLED TO EUN LEIGH Performing Lab: see note - [facility] PROF 14(COMP METB) Reviewed date:10/01/2024 12:35:56 PM Interpretation: Performing Lab: Notes/Report: [facility] , Sodium 139 136-145 mmol/L Potassium 3.4 3.5-5.1 mmol/L Chloride 105 98-107 mmol/L Carbon Dioxide 22.9 21.0-32.0 mmol/L Anion Gap 14.5 Glucose 136 74-106 mg/dL Blood Urea Nitrogen 41.0 7.0-18.0 mg/dL Creatinine 1.11 0.55-1.02 mg/dL Estimated GFR ( Milagro >60 >=60 mL/min/1.73m 2 Estimated GFR (Non- Skylar 51 >=60 mL/min/1.73m 2 BUN Creatinine Ratio 36.9 Calcium 8.2 8.5-10.1 mg/dL Bilirubin Total 0.3 0.2-1.0 mg/dL Aspartate Amino Transferase 22 15-37 U/L Alanine Aminotransferase 58 14-59 U/L Alkaline Phosphatase 109 46-116 U/L Total Protein 6.7 6.4-8.2 g/dL Albumin Level 3.1 3.4-5.0 g/dL Globulin 3.6 Albumin Globulin Ratio 0.9 Performing Lab: see note ML - [facility] Troponin I High Sensitivity Reviewed date:10/01/2024 12:35:56 PM Interpretation: Performing Lab: Notes/Report: [facility] , Troponin I High Sensitivity 29.6 4.0-51.3 pg/mL CUT-OFF POINTS HAVE BEEN ESTABLISHED BASED ON THE FOURTH UNIVERSAL DEFINITION OF MYOCARDIAL INFARCTION. THE UPPER REFERENCE LIMIT (URL) OF TROPONIN, DEFINED THE 99TH PERCENTILE OF cTnI DISTRIBUTION IN A REFERENCE POPULATION, HAS BEEN CONFIRMED THE DECISION THRESHOLD FOR ID DIAGNOSIS. 99TH PERCENTILE = 51.4 PG/ML NOTE: HIGH-SENSITIVITY TROPONIN ASSAY IS NOT INTENDED TO BE USED IN ISOLATION BUT SHOULD BE INTERPRETED IN CONJUNCTION WITH OTHER DIAGNOSTIC AND CLINICAL INFORMATION. Performing Lab: see note ML - [facility] Urine Culture, Routine Reviewed date:10/02/2024 10:29:54 AM Interpretation: Performing Lab: Notes/Report: [facility] , Urine Culture, Routine See Below For Report Urine Culture, Routine Organism: Escherichia coli. : O:ESCHCO Isolated Organism: 1.1 Antibiotic Interpretation RHONDA Status Urine Culture, Routine *ABNORMAL* Urine Culture, Routine Organism: Escherichia coli. : O:ESCHCO Isolated Organism: 1.1 Antibiotic Interpretation RHONDA Status Urine Culture, Routine Greater than 100, 000 colony forming units per mL Urine Culture, Routine Organism: Escherichia coli. : O:ESCHCO Isolated Organism: 1.1 Antibiotic Interpretation RHONDA Status Urine Culture, Routine Escherichia coli. Urine Culture, Routine Organism: Escherichia coli. : O:ESCHCO Isolated Organism: 1.1 Antibiotic Interpretation RHONDA Status Urine Culture, Routine Organism: Escheri kervin coli. : Urine Culture, Routine Organism: Escherichia coli. : O:ESCHCO Isolated Organism: 1.1 Antibiotic Interpretation RHONDA Status Urine Culture, Routine *ABNORMAL* Urine Culture, Routine Organism: Escherichia coli. : O:ESCHCO Isolated Organism: 1.1 Antibiotic Interpretation RHONDA Status Urine Culture, Routine Cefazolin <=4 ug/mL Urine Culture, Routine Organism: Escherichia coli. : O:ESCHCO Isolated Organism: 1.1 Antibiotic Interpretation RHONDA Status Urine Culture, Routine Cefazolin with an RHONDA <=16 predicts susceptibility Urine Culture, Routine Organism: Escherichia coli. : O:ESCHCO Isolated Organism: 1.1 Antibiotic Interpretation RHONDA Status Urine Culture, Routine to the oral agent s cefaclor, cefdinir, cefpodoxime, Urine Culture, Routine Organism: Escherichia coli. : O:ESCHCO Isolated Organism: 1.1 Antibiotic Interpretation RHONDA Status Urine Culture, Routine cefprozil, cefuro ward, cephalexin, and loracarbef when Urine Culture, Routine Organism: Escherichia coli. : O:ESCHCO Isolated Organism: 1.1 Antibiotic Interpretation RHONDA Status Urine Culture, Routine used for therapy of uncomplicated urinary tract Urine Culture, Routine Organism: Escherichia coli. : O:ESCHCO Isolated Organism: 1.1 Antibiotic Interpretation RHONDA Status Urine Culture, Routine infections due to E. coli, Klebsiella pneumoniae, and Urine Culture, Routine Organism: Escherichia coli. : O:ESCHCO Isolated Organism: 1.1 Antibiotic Interpretation RHONDA Status Urine Culture, Routine Proteus mirabilis. Urine Culture, Routine Organism: Escherichia coli. : O:ESCHCO Isolated Organism: 1.1 Antibiotic Interpretation RHONDA Status Urine Culture, Routine Greater than 100, 000 colony forming units per mL Urine Culture, Routine Organism: Escherichia coli. : O:ESCHCO Isolated Organism: 1.1 Antibiotic Interpretation RHONDA Status Urine Culture, Routine See Below For Report Urine Culture, Routine Organism: Escherichia coli. : O:ESCHCO Isolated Organism: 1.1 Antibiotic Interpretation RHONDA Status Urine Culture, Routine [facility] Urine Culture, Routine Organism: Escherichia coli. : O:ESCHCO Isolated Organism: 1.1 Antibiotic Interpretation RHONDA Status Urine Culture, Routine [address] [place], [place] [id number] Urine Culture, Routine Organism: Escherichia coli. : O:ESCHCO Isolated Organism: 1.1 Antibiotic Interpretation RHONDA Status Urine Culture, Routine Water Filterer: Devante Louis PhD, Phone: [phone] Urine Culture, Routine Organism: Escherichia coli. : O:ESCHCO Isolated Organism: 1.1 Antibiotic Interpretation RHONDA Status Urine Culture, Routine See Below For Report Urine Culture, Routine Organism: Escherichia coli. : O:ESCHCO Isolated Organism: 1.1 Antibiotic Interpretation RHONDA Status Urine Culture, Routine AMOXICILLIN/CLAVU LANIC ACID S F Urine Culture, Routine Organism: Escherichia coli. : O:ESCHCO Isolated Organism: 1.1 Antibiotic Interpretation RHONDA Status Urine Culture, Routine Ampicillin S F Urine Culture, Routine Organism: Escherichia coli. : O:ESCHCO Isolated Organism: 1.1 Antibiotic Interpretation RHONDA Status Urine Culture, Routine Cefepime S F Urine Culture, Routine Organism: Escherichia coli. : O:ESCHCO Isolated Organism: 1.1 Antibiotic Interpretation RHONDA Status Urine Culture, Routine Ceftriaxone S F Urine Culture, Routine Organism: Escherichia coli. : O:ESCHCO Isolated Organism: 1.1 Antibiotic Interpretation RHONDA Status Urine Culture, Routine Cefuroxime S F Urine Culture, Routine Organism: Escherichia coli. : O:ESCHCO Isolated Organism: 1.1 Antibiotic Interpretation RHONDA Status Urine Culture, Routine Ciprofloxacin S F Urine Culture, Routine Organism: Escherichia coli. : O:ESCHCO Isolated Organism: 1.1 Antibiotic Interpretation RHONDA Status Urine Culture, Routine Ertapenem S F Urine Culture, Routine Organism: Escherichia coli. : O:ESCHCO Isolated Organism: 1.1 Antibiotic Interpretation RHONDA Status Urine Culture, Routine Gentamicin S F Urine Culture, Routine Organism: Escherichia coli. : O:ESCHCO Isolated Organism: 1.1 Antibiotic Interpretation RHONDA Status Urine Culture, Routine Imipenem S F Urine Culture, Routine Organism: Escherichia coli. : O:ESCHCO Isolated Organism: 1.1 Antibiotic Interpretation RHONDA Status Urine Culture, Routine Levofloxacin S F Urine Culture, Routine Organism: Escherichia coli. : O:ESCHCO Isolated Organism: 1.1 Antibiotic Interpretation RHONDA Status Urine Culture, Routine Meropenem S F Urine Culture, Routine Organism: Escherichia coli. : O:ESCHCO Isolated Organism: 1.1 Antibiotic Interpretation RHONDA Status Urine Culture, Routine Nitrofurantoin S F Urine Culture, Routine Organism: Escherichia coli. : O:ESCHCO Isolated Organism: 1.1 Antibiotic Interpretation RHONDA Status Urine Culture, Routine Tetracycline S F Urine Culture, Routine Organism: Escherichia coli. : O:ESCHCO Isolated Organism: 1.1 Antibiotic Interpretation RHONDA Status Urine Culture, Routine Tobramycin S F Urine Culture, Routine Organism: Escherichia coli. : O:ESCHCO Isolated Organism: 1.1 Antibiotic Interpretation RHONDA Status Urine Culture, Routine Trimethoprim/Sulf amethoxa zole S F Urine Culture, Routine Organism: Escherichia coli. : O:ESCHCO Isolated Organism: 1.1 Antibiotic Interpretation RHONDA Status Urine Culture, Routine Piperacillin/Tazo bactam S F Urine Culture, Routine Organism: Escherichia coli. : O:ESCHCO Isolated Organism: 1.1 Antibiotic Interpretation RHONDA Status Performing Lab: see note LC - [facility] LB SEE REPORT - [facility] Id information not found for OBX-specific email producer legend UA Micro, reflex to culture Reviewed date:10/01/2024 12:35:56 PM Interpretation: Performing Lab: Notes/Report: [facility] , Color Urine YELLOW YELLOW Clarity Urine CLEAR CLEAR Specific [place] Urine 1.025 1.005-1.025 pH Urine 6.0 5.0-9.0 Protein Urine TRACE NEG/TRACE mg/dL Glucose Urine UA NEGATIVE NEGATIVE mg/dL Bilirubin Urine NEGATIVE NEGATIVE Ketones Urine NEGATIVE NEGATIVE mg/dL Blood Urine NEGATIVE NEGATIVE Nitrite Urine POSITIVE NEGATIVE Urobilinogen Urine 0.2 0.2-1.0 EU/dL Leukocyte Esterase Urine TRACE NEGATIVE WBC Urine 5-10 NONE SEEN #/HPF RBC Urine NONE SEEN 0-2 #/HPF Bacteria Urine MODERATE NONE SEEN #/HPF Mucus Urine NONE SEEN NONE SEEN Squamous Epithelial Cell Urine FEW NONE/RARE #/LPF Crystals Seen? None Seen None Seen #/HPF Cast Seen? NONE SEEN NONE SEEN #/LPF Urine Culture Indicated YES Performing Lab: see note ML - [facility] LB ECG 12 lead Reviewed date:10/01/2024 12:35:56 PM Interpretation: Performing Lab: Notes/Report: Source Facility: [place] [address] [place] [address] Electrocardiograph Report Signed Patient: CONSTANTINO MENDIOLA MR#: [id number] : 1970 Acct:[id number] Age/Sex: 54 / F ADM Date: 09/28/24 Loc: ER Attending Dr: Ordering Physician: Neo Wilson Date of Service: 09/28/24 Procedure(s): ECG 12 lead Accession Number(s): [id number] cc: 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 Signed By: 10/01/24 0922 DD/ 1525 TD/TT: Dispatch Clerk: [place] [address] Electrocardiograph Report Signed Patient: ARIELLE MENDIOLA MR#: [id number] : 1970 Acct:[id number] Age/Sex: 54 / F ADM Date: 09/28/24 Loc: ER Attending Dr: Ordering Physician: Neo Wilson Date of Service: 09/28/24 Procedure(s): ECG 12 lead Accession Number(s): [id number] cc: 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 Signed By: 10/01/24921 DD/ 1525 TD/TT: Dispatch Clerk: XR chest 1V Reviewed date:10/01/2024 12:35:56 PM Interpretation: Performing Lab: Notes/Report: Source Facility: [place] [address] XRay Report Signed Patient: CONSTANTINO MENDIOLA MR#: [id number] : 1970 Acct:[id number] Age/Sex: 54 / F ADM Date: 09/28/24 Loc: ER Attending Dr: Ordering Physician: eNo Wilson Date of Service: 09/28/24 Procedure(s): XR chest 1V Accession Number(s): [id number] cc: JUDI YOUSSEF ; Neo Wilson [place] [id number] Patient Name: CONSTANTINO MENDIOLA MRN: [id number] date: 1970 Sex: F Assigned Patient Location: ER Current Patient Location: ER Accession/Order Number: [id number] Exam Date: 09/28/2024 15:24 Report Date: 09/28/2024 15:48 At the request of: NEO WILSON Procedure: XR chest 1V EXAM: XR chest 1V TECHNIQUE: Single AP view chest HISTORY: Shortness of breath COMPARISON: 08/28/2024 FINDINGS: The heart and mediastinum are unremarkable. The lung wolff are clear of any acute infiltrate, effusion or mass. No acute bony abnormality. XR/XR chest 1V IMPRESSION: No acute pulmonary disease. Electronically authenticated by: MARCELO BINGHAM Date: 09/28/2024 15:48 Dictated By: Marcelo Bingham M.D. Signed By: 09/28/24 1550 DD/ 1548 TD/TT: Dispatch Clerk: [place] [address] XRay Report Signed Patient: ARIELLE MENDIOLA MR#: [id number] : 1970 Acct:[id number] Age/Sex: 54 / F ADM Date: 09/28/24 Loc: ER Attending Dr: Ordering Physician: Neo Wilson Date of Service: 09/28/24 Procedure(s): XR chest 1V Accession Number(s): [id number] cc: JUDI YOUSSEF ; Neo Wilson [place] [id number] Patient Name: CONSTANTINO MENDIOLA MRN: [id number] date: 1970 Sex: F Assigned Patient Location: ER Current Patient Loca tion: ER Accession/Order Numb er: [id number] Exam Date: 09/28/2024 15:24 Report Date: 09/28/2024 15:48 At the request of: NEO WILSON Procedure: XR chest 1V EXAM: XR chest 1V TECHNIQUE: Single AP view chest HISTORY: Shortness o f breath COMPARISON: 08/28/2024 FINDINGS: The heart and medias tinum are unremarkable. The lung wolff are clear of any acute infiltrate, effusion or mass. No acute bony abnormality. X R/XR chest 1V IMPRESSION: No acute pulmonary disease. Electronically authenticated by: MARCELO BINGHAM Date: 09/28/2024 15:48 Dictated By: Jorge Bingham M.D. Signed By: 09/28/24 1550 DD/ 1548 TD/TT: Dispatch Clerk: VITAMIN D 25 [place] Reviewed date:11/27/2024 03:16:31 PM Interpretation: Performing Lab: Notes/Report: [facility] , Vitamin D 40.2 <20 ng/mL Vit D deficient 20-<30 ng/mL Vit D insufficient 30-100 ng/mL Vit D sufficient >100 ng/mL Potential Toxicity Performing Lab: see note ML - [facility] LB Vitamin B12 Reviewed date:11/28/2024 11:53:15 AM Interpretation: Performing Lab: Notes/Report: [facility] , Vitamin B12 221 240-8415 pg/mL Performed at: - [facility] [address] [id number] Water Filterer: Shawn Louis PhD, Phone: [phone] Performing Lab: see note - [facility] LB CBC AUTO DIFF Reviewed date:12/18/2024 02:35:37 PM Interpretation: Performing Lab: Notes/Report: [facility] , White Blood Count 5.7 4.0-11.0 10 3/uL Red Blood Count 4.06 4.20-5.40 10 6/uL Hemoglobin 12.1 12.0-16.0 g/dL Hematocrit 36.9 36.0-48.0 % Mean Corpuscular Volume 90.9 81.0-99.0 fL Mean Corpuscular Hemoglobin 29.8 26.7-34.0 pg Mean Corpuscular HGB Conc 32.8 29.9-35.2 g/dL Red Cell Distribution Width 13.1 11.0-15.0 % Platelet Count 328 150-450 10 3/uL Mean Platelet Volume 9.4 9.5-13.5 fL Neutrophils Percent Auto 47.0 43.0-75.0 % Lymphocytes Percent Auto 39.6 20.5-60.0 % Monocytes Percent Auto 8.0 1.7-12.0 % Eosinophils Percent Auto 4.9 0.9-7.0 % Basophils Percent Auto 0.5 0.2-2.0 % Immature Granulocytes Pct Auto 0.0 0.0-0.5 % Neutrophils Absolute Auto 2.7 1.4-6.5 10 3/uL Lymphocytes Absolute Auto 2.2 1.2-3.8 10 3/uL Monocytes Absolute Auto 0.5 0.3-0.8 10 3/uL Eosinophils Absolute Auto 0.3 0.0-0.7 10 3/uL Basophils Absolute Auto 0.0 0.0-0.1 10 3/uL Immature Granulocytes Abs Auto 0.00 0.00-0.03 10 3/uL Performing Lab: see note - [facility] LB DRUG SCREEN RAPID (URINE) Reviewed date:12/18/2024 02:35:37 PM Interpretation: Performing Lab: Notes/Report: [facility] , Cannabinoid Screen Urine NEGATIVE NEGATIVE Phencyclidine Screen Urine NEGATIVE NEGATIVE Cocaine Screen Urine NEGATIVE NEGATIVE Methamphetamines Screen Urine NEGATIVE NEGATIVE Opiate Screen Urine NEGATIVE NEGATIVE Amphetamine Screen Urine NEGATIVE NEGATIVE Benzodiazepines Screen Urine NEGATIVE NEGATIVE Tricyclic Antidepressant Urine NEGATIVE NEGATIVE Methadone Screen Urine NEGATIVE NEGATIVE Barbiturates Screen Urine NEGATIVE NEGATIVE Oxycodone Screen Urine NEGATIVE NEGATIVE Buprenorphine Screen Urine NEGATIVE NEGATIVE DRUG CLASS TEST SYSTEM CUT-OFF CONCENTRATIONS ARE FOLLOWS: AMP (Amphetamine): 500 ng/mL BAR (Barbiturates): 200 ng/mL BZO (Benzodiazepines): 150 ng/mL BUP (Buprenorphine): 10 ng/mL CHANTAL (Cocaine): 150 ng/mL mAMP (Methamphetamine): 500 ng/mL MTD (Methadone): 200 ng/mL OPI (Opiates): 100 ng/mL OXY (Oxycodone): 100 ng/mL PCP (Phencyclidine): 25 ng/mL THC (Cannabinoids): 50 ng/mL TCA (Trycyclic Antidepressants): 300 ng/mL Performing Lab: see note - [facility] LB RHEUMATOID FACTOR Reviewed date:12/20/2024 11:55:33 AM Interpretation: Performing Lab: Notes/Report: [facility] , Rheumatoid Factor (RF) <10.0 <14.0 IU/mL Performed at: - [address] [id number] Water Filterer: Shawn Louis PhD, Phone: [phone] Performing Lab: see note - [facility] LB UA (CLEAN or CATCH) OILER AND GREASER or M ICRO IF IND. Reviewed date:12/18/2024 02:35:37 PM Interpretation: Performing Lab: Notes/Report: [facility] , Color Urine LT. YELLOW YELLOW Clarity Urine CLEAR CLEAR Specific [place] Urine 1.020 1.005-1.025 pH Urine 6.0 5.0-9.0 Protein Urine NEGATIVE NEG/TRACE mg/dL Glucose Urine UA NEGATIVE NEGATIVE mg/dL Bilirubin Urine NEGATIVE NEGATIVE Ketones Urine NEGATIVE NEGATIVE mg/dL Blood Urine TRACE-I NEGATIVE Nitrite Urine NEGATIVE NEGATIVE Urobilinogen Urine 0.2 0.2-1.0 EU/dL Leukocyte Esterase Urine MODERATE NEGATIVE Urine Microscopic Indicated YES Performing Lab: see note - [facility] LB PEPPER w/Reflex Reviewed date:12/20/2024 11:55:33 AM Interpretation: Performing Lab: Notes/Report: [facility] , PEPPER Direct Negative Negative Performed at: [address] [id number] Water Filterer: Shawn Louis PhD, Phone: [phone] Performing Lab: see note [facility] Levetiracetam (Keppra), S Reviewed date:01/11/2025 12:15:06 PM Interpretation: Performing Lab: Notes/Report: [facility] , Levetiracetam (Keppra), S 25.1 10.0-40.0 ug/mL Performed at: [address] [id number] Water Filterer: Suresh Carranza MD, Phone: [phone] Performing Lab: see note [facility] PROF CHEM 8 (BAS METB) Reviewed date:12/18/2024 02:35:37 PM Interpretation: Performing Lab: Notes/Report: [facility] , Sodium 140 136-145 mmol/L Potassium 3.7 3.5-5.1 mmol/L Chloride 107 98-107 mmol/L Carbon Dioxide 28.2 21.0-32.0 mmol/L Anion Gap 8.5 Glucose 104 74-106 mg/dL Blood Urea Nitrogen 14.0 7.0-18.0 mg/dL Creatinine 0.76 0.55-1.02 mg/dL Estimated GFR ( Milagro >60 >=60 mL/min/1.73m 2 Estimated GFR (Non- Skylar >60 >=60 mL/min/1.73m 2 BUN Creatinine Ratio 18.4 Calcium 9.0 8.5-10.1 mg/dL Performing Lab: see note ML - [facility] LB LIVER PROFILE Reviewed date:12/18/2024 02:35:37 PM Interpretation: Performing Lab: Notes/Report: [facility] , Bilirubin Total 0.4 0.2-1.0 mg/dL Bilirubin Direct 0.1 0.0-0.2 mg/dL Aspartate Amino Transferase 16 15-37 U/L Alanine Aminotransferase 17 14-59 U/L Alkaline Phosphatase 145 46-116 U/L Total Protein 6.6 6.4-8.2 g/dL Albumin Level 3.4 3.4-5.0 g/dL Globulin 3.2 Albumin Globulin Ratio 1.1 Performing Lab: see note - [facility] LB LIPASE Reviewed date:12/18/2024 02:35:37 PM Interpretation: Performing Lab: Notes/Report: [facility] , Lipase 26.0 16.0-77.0 U/L Performing Lab: see note - [facility] US renal BI Reviewed date:09/17/2024 10:44:15 AM Interpretation: Performing Lab: Notes/Report: Source Facility: [place] [address] Ultrasound Report Signed Patient: CONSTANTINO MENDIOLA MR#: [id number] : 1970 Acct:[id number] Age/Sex: 54 / F ADM Date: 09/14/24 Loc: US Attending Dr: JUDI YOUSSEF Ordering Physician: JUDI YOUSSEF Date of Service: 09/14/24 Procedure(s): US renal BI Accession Number(s): [id number] cc: JUDI YOUSSEF [place] [id number] Patient Name: CONSTANTINO MENDIOLA MRN: [id number] date: 1970 Sex: F Assigned Patient Location: Current Patient Location: US Accession/Order Number: [id number] Exam Date: 09/14/2024 08:40 Report Date: 09/14/2024 09:21 At the request of: JUDI YOUSSEF Procedure: US renal BI EXAMINATION: US renal BI HISTORY: Renal Lesion COMPARISON: CT abdomen pelvis 08/28/2024 TECHNIQUE: Ultrasound examination was performed of the kidneys and urinary bladder. FINDINGS: RIGHT KIDNEY: Contains a 2.0 x 1.8 x 1.6 cm slightly complex cyst without appreciable internal blood flow. Normal parenchymal echogenicity. Color Doppler demonstrates blood flow within the kidney. Kidney: 10.9 x 4.9 x 4.8 cm LEFT KIDNEY: Contains a nonobstructing 3 mm stone. Normal parenchymal echogenicity. Color Doppler demonstrates blood flow within the kidney. Kidney: 10.4 x 5.0 x 5.8 cm BLADDER: No visible wall thickening, mass, or calculi. US/US renal BI IMPRESSION: 1. Right renal lesion seen on recent CT study favors a slightly complex, but benign cyst. 2. Nonobstructing left nephrolithiasis. Electronically authenticated by: RUSH HORTON Date: 09/14/2024 09:21 Dictated By: Rush Horton M.D. Signed By: 09/14/24923 DD/ 0 TD/TT: Dispatch Clerk: [place] [address] Ultrasound Report Signed Patient: ARIELLE MENDIOLA MR#: [id number] : 1970 Acct:[id number] Age/Sex: 54 / F ADM Date: 09/14/24 Loc: US Attending Dr: JUDI YOUSSEF Ordering Physician: JUDI YOUSSEF Date of Service: 09/14/24 Procedure(s): US renal BI Accession Number(s): [id number] cc: JUDI YOUSSEF [address] [address] Patient Name: CONSTANTINO MENDIOLA MRN: [id number] date: 1970 Sex: F Assigned Patient Location: US Current Patient Loca tion: US Accession/Order Numb er: [id number] Exam Date: 09/14/2024 08:40 Report Date: 09/14/2024 09:21 At the request of: JUDI YOUSSEF Procedure: US renal BI EXAMINATION: US renal BI HISTORY: Renal Lesion COMPARISON: CT abdom en pelvis 08/28/2024 TECHNIQUE: Ultrasoun d examination was performed of the kidneys and urinary bladder. FINDINGS: RIGHT KIDNEY: Contai ns a 2.0 x 1.8 x 1.6 cm slightly complex cyst without appreciable internal blood flow. Normal parenchymal echogenicity. Color Doppler demonstrates blood f low within the kidney. Kidney: 10.9 x 4.9 x 4.8 cm LEFT KIDNEY: Contain s a nonobstructing 3 mm stone. Normal parenchymal echogenicity. Color Doppler demonstrates blood flow within the kidney. Kidney: 10.4 x 5.0 x 5.8 cm BLADDER: No visible wall thickening, mass, or calculi. U S/US renal BI IMPRESSION: 1. Right renal lesio n seen on recent CT study favors a slightly complex, but benign cyst. 2. Nonobstructing le ft nephrolithiasis. Electronically authenticated by: RUSH HORTON Date: 09/14/2024 09:21 Dictated By: Rush Horton M.D. Signed By: 09/14/24923 DD/ 0 TD/TT: Dispatch Clerk: PROF Fonseca(COMP METB) Reviewed date:09/07/2024 11:32:59 AM Interpretation: Performing Lab: Notes/Report: [facility] , Sodium 143 136-145 mmol/L Potassium 3.6 3.5-5.1 mmol/L Chloride 107 98-107 mmol/L Carbon Dioxide 27.2 21.0-32.0 mmol/L Anion Gap 12.4 Glucose 111 74-106 mg/dL Blood Urea Nitrogen 26.0 7.0-18.0 mg/dL Creatinine 0.96 0.55-1.02 mg/dL Estimated GFR ( Milagro >60 >=60 mL/min/1.73m 2 Estimated GFR (Non- Skylar >60 >=60 mL/min/1.73m 2 BUN Creatinine Ratio 27.1 Calcium 9.3 8.5-10.1 mg/dL Bilirubin Total 0.3 0.2-1.0 mg/dL Aspartate Amino Transferase 21 15-37 U/L Alanine Aminotransferase 24 14-59 U/L Alkaline Phosphatase 150 46-116 U/L Total Protein 7.5 6.4-8.2 g/dL Albumin Level 3.8 3.4-5.0 g/dL Globulin 3.7 Albumin Globulin Ratio 1.0 Performing Lab: see note ML - [facility] LB PROF CHEM 8 (ANNAMARIA TAVARES) Reviewed date:09/03/2024 08:18:59 AM Interpretation: Performing Lab: Notes/Report: [facility] , Sodium 141 136-145 mmol/L Potassium 4.4 3.5-5.1 mmol/L Chloride 104 98-107 mmol/L Carbon Dioxide 26.9 21.0-32.0 mmol/L Anion Gap 14.5 Glucose 108 74-106 mg/dL Blood Urea Nitrogen 15.0 7.0-18.0 mg/dL Creatinine 0.95 0.55-1.02 mg/dL Estimated GFR ( Milagro >60 >=60 mL/min/1.73m 2 Estimated GFR (Non- Skylar >60 >=60 mL/min/1.73m 2 BUN Creatinine Ratio 15.8 Calcium 9.4 8.5-10.1 mg/dL Performing Lab: see note ML - [facility] LB MAGNESIUM Reviewed date:09/03/2024 08:18:59 AM Interpretation: Performing Lab: Notes/Report: [facility] , Magnesium 1.9 1.8-2.4 mg/dL Performing Lab: see note ML - [facility] Troponin I High Sensitivity Reviewed date:08/28/2024 08:57:50 AM Interpretation: Performing Lab: Notes/Report: [facility] , Troponin I High Sensitivity 38.1 4.0-51.3 pg/mL CUT-OFF POINTS HAVE BEEN ESTABLISHED BASED ON THE FOURTH UNIVERSAL DEFINITION OF MYOCARDIAL INFARCTION. THE UPPER REFERENCE LIMIT (URL) OF TROPONIN, DEFINED THE 99TH PERCENTILE OF cTnI DISTRIBUTION IN A REFERENCE POPULATION, HAS BEEN CONFIRMED THE DECISION THRESHOLD FOR ID DIAGNOSIS. 99TH PERCENTILE = 51.4 PG/ML NOTE: HIGH-SENSITIVITY TROPONIN ASSAY IS NOT INTENDED TO BE USED IN ISOLATION BUT SHOULD BE INTERPRETED IN CONJUNCTION WITH OTHER DIAGNOSTIC AND CLINICAL INFORMATION. Performing Lab: see note ML - [facility] CT abdomen pelvis w con Reviewed date:08/28/2024 08:57:50 AM Interpretation: Performing Lab: Notes/Report: Source Facility: [facility] [place] [address] CT Scan Report Signed Patient: CONSTNATINO MENDIOLA MR#: [id number] : 1970 Acct:[id number] Age/Sex: 54 / F ADM Date: 08/28/24 Loc: ER Attending Dr: Ordering Physician: Zeferino Armas M.D. Date of Service: 08/28/24 Procedure(s): CT abdomen pelvis w con Accession Number(s): [id number] cc: JUDI YOUSSEF [place] [address] Patient Name: CONSTANTINO MENDIOLA MRN: [id number] date: 1970 Sex: F Assigned Patient Location: ER Current Patient Location: ER Accession/Order Number: [id number] Exam Date: 08/28/2024 05:55 Report Date: 08/28/2024 07:52 At the request of: ZEFERINO ARMAS Procedure: CT abdomen pelvis w con EXAM: CT abdomen pelvis w con HISTORY: SBO. Vomiting, chest pain, dizziness. COMPARISON: CT abdomen/pelvis 06/01/2024. TECHNIQUE: Multiple axial CT images of the abdomen and pelvis were performed with IV contrast. 2D coronal and sagittal reformations were submitted for review. Dose reduction techniques were achieved by using automated exposure control and/or adjustment of mA and/or kV according to patient size and/or use of iterative reconstruction technique. FINDINGS: LUNGS: Mild bibasilar atelectasis. No pleural effusion is identified. ABDOMINAL AORTA: No aortic aneurysm identified. Visceral branches appear widely patent. LYMPH NODES: No retroperitoneal, mesenteric or pelvic lymphadenopathy. LIVER: Liver contour appears smooth. No focal liver parenchymal mass identified. BILIARY TREE AND GALLBLADDER: Biliary ductal dilatation may be related to postcholecystectomy state, grossly unchanged. PANCREAS: Normal in size without masses or ductal dilatation. No peripancreatic inflammatory changes. SPLEEN: Normal in size without focal lesions. ADRENAL GLANDS: Normal bilaterally, without nodules. KIDNEYS/URINARY BLADDER: Kidneys enhance in a symmetric fashion. Similar intermediate density lesion along the anterior midpole cortex of the right kidney measuring 2.1 cm. No KUB stones or hydronephrosis identified. The urinary bladder appears unremarkable. GASTROINTESTINAL TRACT: Gaseous distention of the colon is noted without transition point. No dilated small bowel loops. Bmcfp-pn-wlgnmizm hiatal hernia. Esophagogastric tube tip terminates in the distal stomach. Prior appendectomy. PERITONEAL CAVITY AND SURFACES: No free fluid. No free intraperitoneal air. REPRODUCTIVE ORGANS: Prior hysterectomy. ABDOMINAL WALL: No abdominal hernias are seen. OSSEOUS STRUCTURES: No aggressive appearing osseous lesions. No compression fracture is identified. Convex right curvature of the lumbar spine with mild degenerative disc disease. CT/CT abdomen pelvis w con IMPRESSION: 1. Gaseous distention of the colon suggesting colonic ileus pattern. No transition point is noted. Continued clinical follow-up. 2. Enteric tube tip terminates in the distal stomach. Kzdlo-yb-qsdrzpws hiatal hernia. 3. Intermediate density lesion in the right renal cortex may correlate with a hemorrhagic/proteinaceous cyst. This could be further characterized with CT or MRI renal protocol. 4. Biliary ductal dilatation likely related to postcholecystectomy state. Recommend clinical correlation. Electronically authenticated by: MARQUES ROSEN Date: 08/28/2024 07:52 Dictated By: Marques Rosen M.D. Signed By: 08/28/24 0755 DD/ 075 TD/TT: Dispatch Clerk: [place] [address] CT Scan Report Signed Patient: ARIELLE MENDIOLA MR#: [id number] : 1970 Acct:[id number] Age/Sex: 54 / F ADM Date: 08/28/24 Loc: ER Attending Dr: Ordering Physician: Zeferino Armas M.D. Date of Service: 08/28/24 Procedure(s): CT abd omen pelvis w con Accession Number(s): [id number] cc: JUDI YOUSSEF [address] [address] Patient Name: CONSTANTINO MENDIOLA MRN: [id number] date: 1970 Sex: F Assigned Patient Location: ER Current Patient Loca tion: ER Accession/Order Numb er: [id number] Exam Date: 4 05:55 Report Date: 08/28/2024 07:52 At the request of: ZEFERINO ARMAS Procedure: CT abdome n pelvis w con EXAM: CT abdomen pel vis w con HISTORY: SBO. Vomiti ng, chest pain, dizziness. COMPARISON: CT abdomen/pelvis 06/01/2024. TECHNIQUE: Multiple axial CT images of the abdomen and pelvis were performed with IV contrast. 2D coronal and sagittal reformations were submitted for review. Dose reduction techn iques were achieved by using automated exposure control and/or adjustment of mA and/or kV according to patient size and/or use of iterative reconstruc tion technique. FINDINGS: LUNGS: Mild bibasila r atelectasis. No pleural effusion is identified. ABDOMINAL AORTA: No aortic aneurysm identified. Visceral branches appear widely patent. LYMPH NODES: No retroperitoneal, mesenteric or pelvic lymphadenopathy. LIVER: Liver contour appears smooth. No focal liver parenchymal mass identified. BILIARY TREE AND GALLBLADDER: Biliary ductal dilatation may be related to postcholecystectomy state, grossly unchanged. PANCREAS: Normal in size without masses or ductal dilatation. No peripancreatic inflammatory changes. SPLEEN: Normal in si ze without focal lesions. ADRENAL GLANDS: Norm al bilaterally, without nodules. KIDNEYS/URINARY BLAD HYUN: Kidneys enhance in a symmetric fashion. Similar intermediate density lesion along the anterior midpole cortex of the right kidney measuring 2.1 cm. No KUB stones or hydronephrosis identified. The urinary bladder appe ars unremarkable. GASTROINTESTINAL TRA CT: Gaseous distention of the colon is noted without transition point. No dilated small bowel loops. Hgpwm-yp-ksehkwua hiatal hernia. Esophagogast bertha tube tip terminates in the distal stomach. Prior appendectomy. PERITONEAL CAVITY AN D SURFACES: No free fluid. No free intraperitoneal air. REPRODUCTIVE ORGANS: Prior hysterectomy. ABDOMINAL WALL: No abdominal hernias are seen. OSSEOUS STRUCTURES: No aggressive appearing osseous lesions. No compression fracture is identifi ed. Convex right curvature of the lumbar spine with mild degenerative disc disease. C T/CT abdomen pelvis w con IMPRESSION: 1. Gaseous distentio n of the colon suggesting colonic ileus pattern. No transition point is noted. Continued clinical follow-up. 2. Enteric tube tip terminates in the distal stomach. Rvulc-jr-igipbskq hiatal hernia. 3. Intermediate dens ity lesion in the right renal cortex may correlate with a hemorrhagic/proteina ceous cyst. This could be further characterized with CT or MRI renal protocol. 4. Biliary ductal dilatation likely related to postcholecystectomy state. Recommend clinical correlation. Electronically authenticated by: MARQUES ROSEN Date: 08/28/2024 07:52 Dictated By: Nisha Rosen M.D. Signed By: 08/28/24 0755 DD/ 075 TD/TT: Dispatch Clerk: XR acute abdomen series Reviewed date:08/28/2024 08:57:50 AM Interpretation: Performing Lab: Notes/Report: Source Facility: [place] [address] XRay Report Signed Patient: CONSTANTINO MENDIOLA MR#: [id number] : 1970 Acct:[id number] Age/Sex: 54 / F ADM Date: 08/28/24 Loc: ER Attending Dr: Ordering Physician: Zeferino Armas M.D. Date of Service: 08/28/24 Procedure(s): XR acute abdomen series Accession Number(s): [id number] cc: JUDI YOUSSEF ; Zeferino Armas M.D. The [place] [address] Patient Name: CONSTANTINO MENDIOLA MRN: [id number] date: 1970 Sex: F Assigned Patient Location: ER Current Patient Location: ER Accession/Order Number: [id number] Exam Date: 08/28/2024 05:00 Report Date: 08/28/2024 05:32 At the request of: ZEFERINO ARMAS Procedure: XR acute abdomen series EXAM: XR acute abdomen series HISTORY: pain COMPARISON: None. TECHNIQUE: Frontal chest with supine and upright views of abdomen and pelvis. FINDINGS: Frontal chest demonstrates expanded and clear lungs. Well-defined pleural margins. Normal heart size and vasculature. Thoracic osseous structures are intact. Air and stool seen throughout large bowel from cecum to rectosigmoid. There is some air and fluid distention of large bowel particularly at cecum and transverse colon with air-fluid levels. There is a prominent stool distally at rectosigmoid. Findings favor large bowel ileus with some secretory fluid and diarrhea. Correlate symptomatically for distal outlet obstruction. There is some prominent distention of the cecum. No obvious colonic wall thickening or signs of colitis. Small bowel does not appear to be distended. No free air. No opaque calculi. No organomegaly. Right upper quadrant surgical clips likely from prior cholecystectomy. Correlate with surgical history. XR/XR acute abdomen series IMPRESSION: Air and fluid distention of large bowel with air-fluid levels primarily involving cecum and transverse colon. There is air and stool seen extending rectosigmoid with tapering of large bowel distally. Correlate for distal rectal outlet obstruction versus a large bowel ileus with secretory fluid and diarrhea. CT abdomen and pelvis findings. Please correlate with available. Electronically authenticated by: MIHAI DE LA FUENTE Date: 08/28/2024 05:32 Dictated By: Mihai De La Fuente D.O. Signed By: 08/28/24533 DD/ 1 TD/TT: Dispatch Clerk: [place] [address] XRay Report Signed Patient: ARIELLE MENDIOLA MR#: [id number] : 1970 Acct:[id number] Age/Sex: 54 / F ADM Date: 08/28/24 Loc: ER Attending Dr: Ordering Physician: Zeferino Armas M.D. Date of Service: 08/28/24 Procedure(s): XR acu te abdomen series Accession Number(s): [id number] cc: JUDI YOUSSEF ; Zeferino Armas M.D. [place] [id number] Patient Name: CONSTANTINO MENDIOLA MRN: [id number] date: 1970 Sex: F Assigned Patient Location: ER Current Patient Loca tion: ER Accession/Order Numb er: [id number] Exam Date: 05:00 Report Date: 08/28/2024 05:32 At the request of: ZEFERINO ARMAS Procedure: XR acute abdomen series EXAM: XR acute abdom en series HISTORY: pain COMPARISON: None. TECHNIQUE: Frontal c hest with supine and upright views of abdomen and pelvis. FINDINGS: Frontal chest demonstrates expanded and clear lungs. Well-defined pleural margins. Normal hear t size and vasculature. Thoracic osseous structures are intact. Air and stool seen throughout large bowel from cecum to rectosigmoid. There is some air and fluid distention of large bowel particularly at cecum and transverse colon wit h air-fluid levels. There is a prominent stool distally at rectosigmoid. Findin gs favor large bowel ileus with some secretory fluid and diarrhea. Correlate symptomatically for distal outlet obstruction. There is some prominent diste ntion of the cecum. No obvious colonic wall thickening or signs of colitis. Small bowel does not appear to be distended. No free air. No opaque calculi. No organomegaly. Right upper quadrant surgical clips likely from prior cholecystectomy. Correlate with surgical history. X R/XR acute abdomen series IMPRESSION: Air and fluid disten tion of large bowel with air-fluid levels primarily involving cecum and transverse colon. There is air and stool seen extending rectosigmoid with tapering of large bowel distally. Correlate for distal rectal outlet obstruction v ersus a large bowel ileus with secretory fluid and diarrhea. CT abdomen and pelvis findings. Please correlate with available. Electronically authenticated by: MIHAI DE LA FUENTE Date: 08/28/2024 05:32 Dictated By: Mihai De La Fuente D.O. Signed By: 08/28/2434 DD/ 1 TD/TT: Dispatch Clerk: XR chest 1V Reviewed date:08/28/2024 08:57:50 AM Interpretation: Performing Lab: Notes/Report: Source Facility: [place] [address] [place] [address] XRay Report Signed Patient: CONSTANTINO MENDIOLA MR#: [id number] : 1970 Acct:[id number] Age/Sex: 54 / F ADM Date: 08/28/24 Loc: ER Attending Dr: Ordering Physician: Zeferino Armas M.D. Date of Service: 08/28/24 Procedure(s): XR chest 1V Accession Number(s): [id number] cc: JUDI YOUSSEF ; Zeferino Armas M.D. The [address] [place] [address] Patient Name: CONSTANTINO MENDIOLA MRN: [id number] date: 1970 Sex: F Assigned Patient Location: ER Current Patient Location: ER Accession/Order Number: [id number] Exam Date: 08/28/2024 04:28 Report Date: 08/28/2024 05:27 At the request of: ZEFERINO ARMAS Procedure: XR chest 1V SINGLE VIEW CHEST: 08/28/2024 4:28 AM EST CLINICAL HISTORY:CP COMPARISONS: None. TECHNIQUE: Single frontal view of the chest, utilizing portable technique. Portable radiography should be considered a technically compromised study. Strongly consider dedicated PA and lateral chest radiographs, as clinically indicated. FINDINGS: LINES AND TUBES: Cardiac monitoring leads and wires overlie the patient. CARDIAC SILHOUETTE: Within normal limits. MEDIASTINAL AND HILAR CONTOUR: Within normal limits. PULMONARY PARENCHYMA AND PLEURA: No consolidation, edema, effusion, or pneumothorax. OSSEOUS STRUCTURES:Nothing significant. OTHER COMMENTS:None. XR/XR chest 1V IMPRESSION: No acute findings. This report was generated with voice recognition software. Effort has been made to ensure accuracy of this report, however, occasional wording errors may persist. Please contact our office with any questions. Electronically authenticated by: MIHAI DE LA FUENTE Date: 08/28/2024 05:27 Dictated By: Mihai De La Fuente D.O. Signed By: 08/28/24529 DD/ 6 TD/TT: Dispatch Clerk: [place] [address] XRay Report Signed Patient: ARIELLE MENDIOLA MR#: [id number] : 1970 Acct:[id number] Age/Sex: 54 / F ADM Date: 08/28/24 Loc: ER Attending Dr: Ordering Physician: Zeferino Armas M.D. Date of Service: 08/28/24 Procedure(s): XR chest 1V Accession Number(s): [id number] cc: JUDI YOUSSEF ; Zeferino Armas M.D. The [place] [id number] Patient Name: CONSTANTINO MENDIOLA MRN: [id number] date: 1970 Sex: F Assigned Patient Location: ER Current Patient Loca tion: ER Accession/Order Numb er: [id number] Exam Date: 04:28 Report Date: 08/28/2024 05:27 At the request of: ZEFERINO ARMAS Procedure: XR chest 1V SINGLE VIEW CHEST: 08/28/2024 4:28 AM EST CLINICAL HISTORY:CP COMPARISONS: None. TECHNIQUE: Single fr ontal view of the chest, utilizing portable technique. Portable radiography should be considered a technically compromised study. Strongly consider dedicated PA and lateral chest radiographs, as clinically indicated. FINDINGS: LINES AND TUBES: Car diac monitoring leads and wires overlie the patient. CARDIAC SILHOUETTE: Within normal limits. MEDIASTINAL AND AGUSTÍN R CONTOUR: Within normal limits. PULMONARY PARENCHYMA AND PLEURA: No consolidation, edema, effusion, or pneumothorax. OSSEOUS STRUCTURES:Nothing significant. OTHER COMMENTS:None. X R/XR chest 1V IMPRESSION: No acute findings. This report was gene rated with voice recognition software. Effort has been made to ensure accuracy o f this report, however, occasional wording errors may persist. Please cont act our office with any questions. Electronically authenticated by: MIHAI DE LA FUENTE Date: 08/28/2024 05:27 Dictated By: Mihai De La Fuente D.O. Signed By: 08/28/24529 DD/ 6 TD/TT: Dispatch Clerk: ECG 12 lead Reviewed date:08/28/2024 08:57:50 AM Interpretation: Performing Lab: Notes/Report: Source Facility: [place] [address] [place] [address] Electrocardiograph Report Signed Patient: CONSTANTINO MENDIOLA MR#: [id number] : 1970 Acct:[id number] Age/Sex: 54 / F ADM Date: 08/28/24 Loc: ER Attending Dr: Ordering Physician: Zeferino Armas M.D. Date of Service: 08/28/24 Procedure(s): ECG 12 lead Accession Number(s): [id number] cc: 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 Signed By: 08/28/24655 DD/ 0 TD/TT: Dispatch Clerk: [place] [address] Electrocardiograph Report Signed Patient: ARIELLE MENDIOLA MR#: [id number] : 1970 Acct:[id number] Age/Sex: 54 / F ADM Date: 08/28/24 Loc: ER Attending Dr: Ordering Physician: Zeferino Armas M.D. Date of Service: 08/28/24 Procedure(s): ECG 12 lead Accession Number(s): [id number] cc: [facility] Test Date: 2024-08-28 Pat Name: CONSTANTINO MENDIOLA Department: 66 Room: - Gender: Female Tank Assembler: : 1970 Requ ested By: JUDI YOUSSEF Order Number: [id number] Reading MD: JUAREZ CRUZ Measurements Intervals Wilson Rate: 84 P: 37 HI: 140 QRS: 26 QRSD: 90 T: 45 QT: 392 QTc: 433 Interpretive Statements 1100 Sinus rhythm 9110 normal ECG Compared to ECG 04/13/2024 14:58:17 No significant changes Electronically Priya d On 08-28-2024 6:55:52 EST by JUAREZ CRUZ Dictated By: Juarez Cruz D.O. Signed By: 08/28/24655 DD/ 0 TD/TT: Dispatch Clerk: Troponin I High Sensitivity Reviewed date:08/28/2024 08:57:50 AM Interpretation: Performing Lab: Notes/Report: [facility] , Troponin I High Sensitivity 38.7 4.0-51.3 pg/mL CUT-OFF POINTS HAVE BEEN ESTABLISHED BASED ON THE FOURTH UNIVERSAL DEFINITION OF MYOCARDIAL INFARCTION. THE UPPER REFERENCE LIMIT (URL) OF TROPONIN, DEFINED THE 99TH PERCENTILE OF cTnI DISTRIBUTION IN A REFERENCE POPULATION, HAS BEEN CONFIRMED THE DECISION THRESHOLD FOR ID DIAGNOSIS. 99TH PERCENTILE = 51.4 PG/ML NOTE: HIGH-SENSITIVITY TROPONIN ASSAY IS NOT INTENDED TO BE USED IN ISOLATION BUT SHOULD BE INTERPRETED IN CONJUNCTION WITH OTHER DIAGNOSTIC AND CLINICAL INFORMATION. Performing Lab: see note ML - [facility] LB PROF CHEM 8 (BAS METB) Reviewed date:08/28/2024 08:57:50 AM Interpretation: Performing Lab: Notes/Report: [facility] , Sodium 143 136-145 mmol/L Potassium 3.9 3.5-5.1 mmol/L Chloride 109 98-107 mmol/L Carbon Dioxide 24.9 21.0-32.0 mmol/L Anion Gap 13.0 Glucose 99 74-106 mg/dL Blood Urea Nitrogen 13.0 7.0-18.0 mg/dL Creatinine 0.97 0.55-1.02 mg/dL Estimated GFR ( Milagro >60 >=60 mL/min/1.73m 2 Estimated GFR (Non- Skylar 60 >=60 mL/min/1.73m 2 BUN Creatinine Ratio 13.4 Calcium 8.9 8.5-10.1 mg/dL Performing Lab: see note ML - [facility] LB CBC AUTO DIFF Reviewed date:08/28/2024 08:57:50 AM Interpretation: Performing Lab: Notes/Report: [facility] , White Blood Count 8.4 4.0-11.0 10 3/uL Red Blood Count 4.00 4.20-5.40 10 6/uL Hemoglobin 11.9 12.0-16.0 g/dL Hematocrit 36.8 36.0-48.0 % Mean Corpuscular Volume 92.0 81.0-99.0 fL Mean Corpuscular Hemoglobin 29.8 26.7-34.0 pg Mean Corpuscular HGB Conc 32.3 29.9-35.2 g/dL Red Cell Distribution Width 13.0 11.0-15.0 % Platelet Count 372 150-450 10 3/uL Mean Platelet Volume 9.0 9.5-13.5 fL Neutrophils Percent Auto 63.5 43.0-75.0 % Lymphocytes Percent Auto 26.3 20.5-60.0 % Monocytes Percent Auto 6.3 1.7-12.0 % Eosinophils Percent Auto 3.4 0.9-7.0 % Basophils Percent Auto 0.4 0.2-2.0 % Immature Granulocytes Pct Auto 0.1 0.0-0.5 % Neutrophils Absolute Auto 5.3 1.4-6.5 10 3/uL Lymphocytes Absolute Auto 2.2 1.2-3.8 10 3/uL Monocytes Absolute Auto 0.5 0.3-0.8 10 3/uL Eosinophils Absolute Auto 0.3 0.0-0.7 10 3/uL Basophils Absolute Auto 0.0 0.0-0.1 10 3/uL Immature Granulocytes Abs Auto 0.01 0.00-0.03 10 3/uL Performing Lab: see note ML - [facility] LB XR KNEE LT 3V Reviewed date:06/25/2024 12:06:18 PM Interpretation: Performing Lab: Notes/Report: Source Facility: [facility] [place] [address] [place] [address] XRay Report Signed Patient: CONSTANTINO MENDIOLA MR#: [id number] : 1970 Acct:[id number] Age/Sex: 54 / F ADM Date: 06/24/24 Loc: ER Attending Dr: Ordering Physician: Zeferino Armas M.D. Date of Service: 06/24/24 Procedure(s): XR knee LT 3V Accession Number(s): [id number] cc: JUDI YOUSSEF ; Zeferino Armas M.D. [place] [address] Patient Name: CONSTANTINO MENDIOLA MRN: [id number] date: 1970 Sex: F Assigned Patient Location: ED.MAIN Current Patient Location: ER Accession/Order Number: [id number] Exam Date: 06/24/2024 01:30 Report Date: 06/24/2024 05:07 At the request of: ZEFERINO ARMAS Procedure: XR knee LT 3V HISTORY: Left knee pain after a fall. XR knee LT 3V: 06/24/2024 1:30 AM EDT COMPARISON: None. XR/XR knee LT 3V IMPRESSION: No fracture, dislocation, joint space narrowing or soft tissue swelling is seen. There is a moderate-sized suprapatellar joint effusion. There is a well-corticated ossicle at the tibial tubercle compatible with Van-Schlatter's disease. Electronically authenticated by: MAILE LAWRENCE Date: 06/24/2024 05:07 Dictated By: Maile Lawrence M.D. Signed By: 06/24/24 0510 DD/ 0507 TD/TT: Dispatch Clerk: [place] [address] XRay Report Signed Patient: ARIELLE MENDIOLA MR#: [id number] : 1970 Acct:[id number] Age/Sex: 54 / F ADM Date: 06/24/24 Loc: ER Attending Dr: Ordering Physician: Zeferino Armas M.D. Date of Service: 06/24/24 Procedure(s): XR kne e LT 3V Accession Number(s): [id number] cc: JUDI YOUSSEF ; Zeferino Armas M.D. The [place] [address] Patient Name: CONSTANTINO MENDIOLA MRN: [facility]:[id number] date: 1970 Sex: F Assigned Patient Location: ED.MAIN Current Patient Loca tion: ER Accession/Order Numb er: [id number] Exam Date: 01:30 Report Date: 06/24/2024 05:07 At the request of: ZEFERINO ARMAS Procedure: XR knee LT 3V HISTORY: Left knee p ain after a fall. XR knee LT 3V: 06/24 1:30 AM EDT COMPARISON: None. X R/XR knee LT 3V IMPRESSION: No fracture, disloca tion, joint space narrowing or soft tissue swelling is seen. There is a moderate-sized suprapatellar joint effusion. There is a well-corticated ossi jacob at the tibial tubercle compatible with Van-Schlatter's disease. Electronically authenticated by: MAILE LAWRENCE Date: 06/24/2024 05:07 Dictated By: Maile Lawrence M.D. Signed By: 06/24/24 0510 DD/ 0507 TD/TT: Dispatch Clerk: Troponin I High Sensitivity Reviewed date:06/04/2024 09:49:37 AM Interpretation: Performing Lab: Notes/Report: [facility] , Troponin I High Sensitivity 25.5 4.0-51.3 pg/mL CUT-OFF POINTS HAVE BEEN ESTABLISHED BASED ON THE FOURTH UNIVERSAL DEFINITION OF MYOCARDIAL INFARCTION. THE UPPER REFERENCE LIMIT (URL) OF TROPONIN, DEFINED THE 99TH PERCENTILE OF cTnI DISTRIBUTION IN A REFERENCE POPULATION, HAS BEEN CONFIRMED THE DECISION THRESHOLD FOR ID DIAGNOSIS. 99TH PERCENTILE = 51.4 PG/ML NOTE: HIGH-SENSITIVITY TROPONIN ASSAY IS NOT INTENDED TO BE USED IN ISOLATION BUT SHOULD BE INTERPRETED IN CONJUNCTION WITH OTHER DIAGNOSTIC AND CLINICAL INFORMATION. Performing Lab: see note ML - [facility] LB PROF 14(COMP METB) Reviewed date:06/04/2024 09:49:37 AM Interpretation: Performing Lab: Notes/Report: [facility] , Sodium 140 136-145 mmol/L Potassium 3.7 3.5-5.1 mmol/L Chloride 106 98-107 mmol/L Carbon Dioxide 24.2 21.0-32.0 mmol/L Anion Gap 13.5 Glucose 83 74-106 mg/dL Blood Urea Nitrogen 27.0 7.0-18.0 mg/dL Creatinine 0.87 0.55-1.02 mg/dL Estimated GFR ( Milagro >60 >=60 Estimated GFR (Non- Skylar >60 >=60 BUN Creatinine Ratio 31.0 Calcium 8.4 8.5-10.1 mg/dL Bilirubin Total 0.4 0.2-1.0 mg/dL Aspartate Amino Transferase 13 15-37 U/L Alanine Aminotransferase 19 14-59 U/L Alkaline Phosphatase 145 46-116 U/L Total Protein 6.7 6.4-8.2 g/dL Albumin Level 3.4 3.4-5.0 g/dL Globulin 3.3 Albumin Globulin Ratio 1.0 Performing Lab: see note ML - [facility] LB LIPASE Reviewed date:06/04/2024 09:49:37 AM Interpretation: Performing Lab: Notes/Report: [facility] , Lipase 42.0 16.0-77.0 U/L Performing Lab: see note ML - [facility] LB LACTATE or LACTIC ACID Reviewed date:06/04/2024 09:49:37 AM Interpretation: Performing Lab: Notes/Report: [facility] , Lactate/Lactic Acid 1.1 0.4-2.0 mmol/L Performing Lab: see note ML - [facility] LB CT abdomen pelvis wo con Reviewed date:04/16/2024 04:53:42 PM Interpretation: Performing Lab: Notes/Report: Source Facility: [place] [address] CT Scan Report Signed Patient: CONSTANTINO MENDIOLA MR#: [id number] : 1970 Acct:[id number] Age/Sex: 53 / F ADM Date: 04/13/24 Loc: ER Attending Dr: Ordering Physician: Aicha Wooten Date of Service: 04/13/24 Procedure(s): CT abdomen pelvis wo con Accession Number(s): [id number] cc: JUDI YOUSSEF [place] [address] Patient Name: CONSTANTINO MENDIOLA MRN: [id number] date: 1970 Sex: F Assigned Patient Location: ER Current Patient Location: ER Accession/Order Number: [id number] Exam Date: 04/13/2024 14:43 Report Date: 04/13/2024 15:30 At the request of: AICHA WOOTEN Procedure: CT abdomen pelvis wo con EXAMINATION: CT abdomen pelvis wo con HISTORY: abdominal pain COMPARISON: CT abdomen pelvis 12/15/2023 TECHNIQUE: Axial, Coronal, and Sagittal images were obtained without and/or with IV contrast as indicated by examination type. Dose reduction techniques were achieved by using automated exposure control and/or adjustment of mA and/or kV according to patient size and/or use of iterative reconstruction technique. FINDINGS: LUNG BASES: No visible pulmonary or pleural disease. LIVER: No enlargement, atrophy, suspicious density, or significant focal lesion. BILIARY: Cholecystectomy. PANCREAS: No lesion, fluid collection, or abnormal duct dilatation. SPLEEN: No enlargement or focal lesion. ADRENALS: No mass or enlargement. KIDNEYS: No mass, obstruction, or calcification. BOWEL/MESENTERY: Prior gastric surgery. Fluid filled distal loops of small bowel and fluid levels throughout the colon. No visible mass, obstruction, or bowel wall thickening. AORTA/VASCULAR: No aneurysm or dissection. RETROPERITONEUM: No mass or adenopathy. LYMPH NODES: No adenopathy. URINARY BLADDER: No visible focal wall thickening, lesion, or calculus. PELVIC ORGANS: Hysterectomy. ABDOMINAL WALL: No mass or hernia. BONES: No bony lesion or fracture. OTHER: Negative. CT/CT abdomen pelvis wo con IMPRESSION: 1. Fluid-filled loops of small and large bowel without obstruction or appreciable inflammatory changes. Possible mild enteritis. Electronically authenticated by: RUSH HORTON Date: 04/13/2024 15:30 Dictated By: Rush Horton M.D. Signed By: 04/13/24 1532 DD/ 1530 TD/TT: Dispatch Clerk: [place] [address] CT Scan Report Signed Patient: ARIELLE MENDIOLA MR#: [id number] : 1970 Acct:[id number] Age/Sex: 53 / F ADM Date: 04/13/24 Loc: ER Attending Dr: Ordering Physician: Aicha Wooten Date of Service: 04/13/24 Procedure(s): CT abd omen pelvis wo con Accession Number(s): [id number] cc: JUDI YOUSSEF [place] [id number] Patient Name: CONSTANTINO MENDIOLA MRN: [id number] date: 1970 Sex: F Assigned Patient Location: ER Current Patient Loca tion: ER Accession/Order Numb er: [id number] Exam Date: 04/13/2024 14:43 Report Date: 04/13/2024 15:30 At the request of: AICHA WOOTEN Procedure: CT abdome n pelvis wo con EXAMINATION: CT abdo men pelvis wo con HISTORY: abdominal pain COMPARISON: CT abdom en pelvis 12/15/2023 TECHNIQUE: Axial, Coronal, and Sagittal images were obtained without and/or with IV contrast as indicated by examination type. Dose reduction techniques were achieved by usi ng automated exposure control and/or adjustment of mA and/or kV according to patient size and/or use of iterative reconstruction technique. FINDINGS: LUNG BASES: No visib le pulmonary or pleural disease. LIVER: No enlargemen t, atrophy, suspicious density, or significant focal lesion. BILIARY: Cholecystectomy. PANCREAS: No lesion, fluid collection, or abnormal duct dilatation. SPLEEN: No enlargeme nt or focal lesion. ADRENALS: No mass or enlargement. KIDNEYS: No mass, obstruction, or calcification. BOWEL/MESENTERY: Apple or gastric surgery. Fluid filled distal loops of small bowel and fluid leve ls throughout the colon. No visible mass, obstruction, or bowel wall thickening. AORTA/VASCULAR: No aneurysm or dissection. RETROPERITONEUM: No mass or adenopathy. LYMPH NODES: No adenopathy. URINARY BLADDER: No visible focal wall thickening, lesion, or calculus. PELVIC ORGANS: Hysterectomy. ABDOMINAL WALL: No m ass or hernia. BONES: No bony lesio n or fracture. OTHER: Negative. C T/CT abdomen pelvis wo con IMPRESSION: 1. Fluid-filled loop s of small and large bowel without obstruction or appreciable inflamma tory changes. Possible mild enteritis. Electronically authenticated by: RUSH HORTON Date: 04/13/2024 15:30 Dictated By: Rush Horton M.D. Signed By: 04/13/24 1532 DD/ 1530 TD/TT: Dispatch Clerk: ECG 12 lead Reviewed date:04/16/2024 04:53:42 PM Interpretation: Performing Lab: Notes/Report: Source Facility: [place] [address] [place] [address] Electrocardiograph Report Signed Patient: CONSTANTINO MENDIOLA MR#: [id number] : 1970 Acct:[id number] Age/Sex: 53 / F ADM Date: 04/13/24 Loc: ER Attending Dr: Ordering Physician: Aicha Wooten Date of Service: 04/13/24 Procedure(s): ECG 12 lead Accession Number(s): [id number] cc: [facility] Test Date: 2024-04-13 Pat Name: CONSTANTINO MENDIOLA Department: Room: - Gender: Female Tank Assembler: : 1970 Requested By: JUDI YOUSSEF Order Number: [id number] Reading MD: JUAREZ CRUZ Measurements Intervals Wilson Rate: 50 P: 54 HI: 160 QRS: 39 QRSD: 102 T: 54 QT: 484 QTc: 457 Interpretive Statements 1100 Sinus rhythm 8304 Long QTc interval 9150 abnormal ECG Compared to ECG 11/27/2023 14:34:20 Sinus bradycardia no longer present Electronically Signed On 04-13-2024 18:34:01 EDT by JUAREZ CRUZ Dictated By: Juarez Cruz D.O. Signed By: 04/13/24 1834 DD/ 1458 TD/TT: Dispatch Clerk: [place] [address] Electrocardiograph Report Signed Patient: ARIELLE MENDIOLA MR#: [id number] : 1970 Acct:[id number] Age/Sex: 53 / F ADM Date: 04/13/24 Loc: ER Attending Dr: Ordering Physician: Aicha Wooten Date of Service: 04/13/24 Procedure(s): ECG 12 lead Accession Number(s): [id number] cc: [facility] Test Date: 2024-04-13 Pat Name: CONSTANTINO MENDIOLA Department: 66 Room: - Gender: Female Tank Assembler: : 1970 Requ ested By: JUDI YOUSSEF Order Number: [id number] Reading MD: JUAREZ CRUZ Measurements Intervals Wilson Rate: 50 P: 54 HI: 160 QRS: 39 QRSD: 102 T: 54 QT: 484 QTc: 457 Interpretive Statements 1100 Sinus rhythm 8304 Long QTc interval 9150 abnormal ECG Compared to ECG 11/27/2023 14:34:20 Sinus bradycardia no longer present Electronically Priya d On 04-13-2024 18:34:01 EDT by JUAREZ CRZU Dictated By: Juarez Cruz D.O. Signed By: 04/13/24 0726 DD/ 3448 TD/TT: Dispatch Clerk: ÓSCAR (CLEAN or CATCH) OILER AND GREASER or M ANGELICO IF IND. Reviewed date:04/16/2024 04:53:42 PM Interpretation: Performing Lab: Notes/Report: [facility] , Color Urine LT. YELLOW YELLOW Clarity Urine CLEAR CLEAR Specific [place] Urine 1.020 1.005-1.025 pH Urine 5.5 5.0-9.0 Protein Urine NEGATIVE NEG/TRACE mg/dL Glucose Urine UA NEGATIVE NEGATIVE mg/dL Bilirubin Urine NEGATIVE NEGATIVE Ketones Urine NEGATIVE NEGATIVE mg/dL Blood Urine TRACE-I NEGATIVE Nitrite Urine NEGATIVE NEGATIVE Urobilinogen Urine 0.2 0.2-1.0 EU/dL Leukocyte Esterase Urine NEGATIVE NEGATIVE Urine Microscopic Indicated YES Performing Lab: see note ML - [facility] LB LIPASE Reviewed date:04/16/2024 04:53:42 PM Interpretation: Performing Lab: Notes/Report: [facility] , Lipase 39.0 16.0-77.0 U/L Performing Lab: see note ML - [facility] LB LACTATE or LACTIC ACID Reviewed date:04/16/2024 04:53:42 PM Interpretation: Performing Lab: Notes/Report: [facility] , Lactate/Lactic Acid 1.0 0.4-2.0 mmol/L Performing Lab: see note ML - [facility] LB CBC AUTO DIFF Reviewed date:04/16/2024 04:53:42 PM Interpretation: Performing Lab: Notes/Report: [facility] , White Blood Count 7.7 4.0-11.0 10 3/uL Red Blood Count 4.01 4.20-5.40 10 6/uL Hemoglobin 11.9 12.0-16.0 g/dL Hematocrit 37.2 36.0-48.0 % Mean Corpuscular Volume 92.8 81.0-99.0 fL Mean Corpuscular Hemoglobin 29.7 26.7-34.0 pg Mean Corpuscular HGB Conc 32.0 29.9-35.2 g/dL Red Cell Distribution Width 13.2 11.0-15.0 % Platelet Count 353 150-450 10 3/uL Mean Platelet Volume 9.1 9.5-13.5 fL Neutrophils Percent Auto 47.3 43.0-75.0 % Lymphocytes Percent Auto 39.8 20.5-60.0 % Monocytes Percent Auto 8.7 1.7-12.0 % Eosinophils Percent Auto 3.4 0.9-7.0 % Basophils Percent Auto 0.7 0.2-2.0 % Immature Granulocytes Pct Auto 0.1 0.0-0.5 % Neutrophils Absolute Auto 3.6 1.4-6.5 10 3/uL Lymphocytes Absolute Auto 3.1 1.2-3.8 10 3/uL Monocytes Absolute Auto 0.7 0.3-0.8 10 3/uL Eosinophils Absolute Auto 0.3 0.0-0.7 10 3/uL Basophils Absolute Auto 0.1 0.0-0.1 10 3/uL Immature Granulocytes Abs Auto 0.01 0.00-0.03 10 3/uL Performing Lab: see note ML - [facility] LB PROF CHEM 8 (BAS METB) Reviewed date:04/06/2024 11:34:29 AM Interpretation: Performing Lab: Notes/Report: [facility] , Sodium 142 136-145 mmol/L Potassium 3.8 3.5-5.1 mmol/L Chloride 106 98-107 mmol/L Carbon Dioxide 29.1 21.0-32.0 mmol/L Anion Gap 10.7 Glucose 93 74-106 mg/dL Blood Urea Nitrogen 18.0 7.0-18.0 mg/dL Creatinine 0.82 0.55-1.02 mg/dL Estimated GFR ( Milagro >60 >=60 Estimated GFR (Non- Skylar >60 >=60 BUN Creatinine Ratio 22.0 Calcium 9.2 8.5-10.1 mg/dL Performing Lab: see note ML - [facility] CA echo doppler complete Reviewed date:03/14/2024 11:58:27 AM Interpretation: Performing Lab: Notes/Report: Source Facility: [facility]-[address] [place] [address] [place] [address] Cardiology Report Signed Patient: CONSTANTINO MENDIOLA MR#: [id number] : 1970 Acct:[id number] Age/Sex: 53 / F ADM Date: 03/13/24 Loc: CARD Attending Dr: Edison Heart M.D. Ordering Physician: Edison Heart M.D. Date of Service: 03/13/24 Procedure(s): CA echo doppler complete Accession Number(s): [id number] cc: EWELINA YOUSSEFELA ; Edisno Heart M.D. Patient Name: CONSTANTINO MENDIOLA MR#: [id number] : 1970 Exam Date: 03/13/2024 Ordering Doctor: EDISON HEART ECHOCARDIOGRAM REPORT PROCEDURE: CA ECHO DOPPLER COMPLETE INDICATIONS: CA COMPARISON: None. DESCRIPTION: COMPLETE ECHOCARDIOGRAM Real-time transthoracic echocardiography with 2D, M-mode, spectral and color flow Doppler performed. QUALITY: Technical quality was good. LEFT VENTRICLE: Normal chamber size. Normal left ventricular wall thickness. LV EF: Global left ventricular systolic function is normal. Calculated left ventricular ejection fraction is 66%. No wall motion abnormalities. DIASTOLIC: Normal diastolic function. ATRIAL SEPTUM: Inadequately seen. LEFT ATRIUM: Normal chamber size. RIGHT ATRIUM: Normal chamber size. RIGHT VENTRICLE: Normal chamber size. Normal right ventricular systolic function. TRICUSPID VALVE: Normal mobility and thickness. No stenosis with mild regurgitation. Mild pulmonary hypertension. RVSP 44mmHg MITRAL VALVE: Normal mobility and thickness. No evidence of mitral valve stenosis. There is no mitral annular calcification. Trivial mitral regurgitation. AORTIC VALVE: Normal trileaflet appearance. No visible sclerosis. Normal leaflet mobility. No evidence of aortic valve stenosis. No aortic regurgitation. AORTIC ROOT: Normal diameter and appearance. PULMONIC VALVE: Normal thickness and mobility. No stenosis. Mild regurgitation. PERICARDIUM: Minimal pericardial effusion. IVC: Collapses with inspirations. Mild dilatation measuring 2.3cm. CONCLUSION: 1. Global left ventricular systolic function is normal; visually estimated ejection fraction is 60 to 65% 2. Normal right ventricular size and systolic function 3. Normal diastolic function 4. The left atrium is normal in size 5. Mild tricuspid regurgitation 6. Mildly elevated right ventricular systolic pressure; RVSP 54 mmHg 7. Mild pulmonic regurgitation 8. Minimal pericardial effusion Adult Echocardiography Procedure Report Left Ventricle LVEDD (3.7 - 5.6 cm): 4.47 cm LVESD (2.2 - 4.0 cm): 2.72 cm LVIVS thickness (0.6 - 1.2 cm): 0.96 cm LVPW thickness (0.5 - 1.0 cm): 0.95 cm e': 0.10 m/s E - e': 8.31 LVOT Max Gradient: 1.98 mm[Hg] LVOT Area (cm2): 0.70 m/s Peak Velocity (LVOT): 0.70 m/s Mean Velocity (LVOT): 0.48 m/s LVOT Diameter 2.28 cm Left Ventricular Ejection Fraction: 65.86 % Left Atrium LA Volume Index (2D A2C): 37.14 ml/m2 Left Atrium Systolic Dimension: 3.36 cm Mitral Valve MV E to A Ratio: 1.67 MV Max Gradient: MV Mean Gradient: Mitral Valve A-Wave Peak Velocity: 0.48 m/s Mitral Valve E-Wave Peak Velocity: 0.79 m/s Cardiovascular Orifice Area: Right Ventricle RV Internal Diastolic Dimension: 3.04 cm Aorta AO Root Diam: 3.22 cm Ascending Ao Diam: 3.06 cm Aortic Valve AoV Area (Peak Isidoro): 2.83 cm2, 2.83 cm2 AoV Area (VTI): 2.89 cm2, 2.89 cm2 Deceleration [place]: Pressure Half-Time: Peak Velocity(Antegrade Flow): 1.01 m/s Peak Gradient(Antegrade Flow): 4.09 mm[Hg] Mean Velocity(Antegrade Flow): 0.69 m/s Mean Gradient(Antegrade Flow): 2.17 mm[Hg] Velocity Time Integral: 28.96 cm Tricuspid Valve Peak Velocity (Regurgitant Flow): 2.35 m/s, 2.84 m/s, 2.98 m/s Peak Velocity: Pulmonic Valve Mean Gradient: Mean Velocity: Peak Velocity: 0.64 m/s Peak Gradient: 1.68 mm[Hg], 1.57 mm[Hg] Right Atrium Right Atrium Systolic Pressure: 36.13 ml, 36.13 ml Dictated by: Alexandro Tracy M.D. on 03/14/2024 at 10:09 Approved by: Alexandro Tracy M.D. on 03/14/2024 at 10:15 Dictated By: Alexandro Tracy M.D. Signed By: 03/14/24 1017 DD/ 1016 TD/TT: Dispatch Clerk: The [address] [address] Cardiology Report Signed Patient: ARIELLE MENDIOLA MR#: [id number] : 1970 Acct:[id number] Age/Sex: 53 / F ADM Date: 03/13/24 Loc: CARD Attending Dr: Edison Heart M.D. Ordering Physician: Edison Heart M.D. Date of Service: 03/13/24 Procedure(s): CA ech o doppler complete Accession Number(s): [id number] cc: JUDI YOUSSEF ; Edison Heart M.D. Patient Name: CONSTANTINO MENDIOLA MR#: [id number] : 1970 Exam Date: 03/13/2024 Ordering Doctor: LANDRY HEART ECHOCARDIOGRAM REPORT PROCEDURE: CA ECHO DOPPLER COMPLETE INDICATIONS: CA COMPARISON: None. DESCRIPTION: COMPLE TE ECHOCARDIOGRAM Real-time transthoracic echocardiography wit h 2D, M-mode, spectral and color flow Doppler performed. QUALITY: Technical quality was good. LEFT VENTRICLE: Norm al chamber size. Normal left ventricular wall thickness. LV EF: Global left ventricular systolic function is normal. Calculated left ventricular eje ction fraction is 66%. No wall motion abnormalities. DIASTOLIC: Normal diastolic function. ATRIAL SEPTUM: Inadequately seen. LEFT ATRIUM: Normal chamber size. RIGHT ATRIUM: Normal chamber size. RIGHT VENTRICLE: Nor mal chamber size. Normal right ventricular systolic function. TRICUSPID VALVE: Nor mal mobility and thickness. No stenosis with mild regurgitation. Mild pulmonary hypertension. RVSP 44mmHg MITRAL VALVE: Normal mobility and thickness. No evidence of mitral valve stenosis. There is n o mitral annular calcification. Trivial mitral regurgitation. AORTIC VALVE: Normal trileaflet appearance. No visible sclerosis. Normal leaflet mobility. No evidence of aortic valve stenosis. No aortic regurgitation. AORTIC ROOT: Normal diameter and appearance. PULMONIC VALVE: Norm al thickness and mobility. No stenosis. Mild regurgitation. PERICARDIUM: Minimal pericardial effusion. IVC: Collapses with inspirations. Mild dilatation measuring 2.3cm. CONCLUSION: 1. Global left ventricular systolic function is normal; visually estimated ejection fraction is 60 to 65% 2. Normal right ventricular size and systolic function 3. Normal diastolic function 4. The left atrium i s normal in size 5. Mild tricuspid regurgitation 6. Mildly elevated r ight ventricular systolic pressure; RVSP 54 mmHg 7. Mild pulmonic regurgitation 8. Minimal pericardi al effusion Adult Echocardiograp hy Procedure Report Left Ventricle LVEDD (3.7 - 5.6 cm) : 4.47 cm LVESD (2.2 - 4.0 cm) : 2.72 cm LVIVS thickness (0.6 - 1.2 cm): 0.96 cm LVPW thickness (0.5 - 1.0 cm): 0.95 cm e': 0.10 m/s E - e': 8.31 LVOT Max Gradient: 1 .98 mm[Hg] LVOT Area (cm2): 0.70 m/s Peak Velocity (LVOT) : 0.70 m/s Mean Velocity (LVOT) : 0.48 m/s LVOT Diameter 2.28 cm Left Ventricular Eje ction Fraction: 65.86 % Left Atrium LA Volume Index (2D A2C): 37.14 ml/m2 Left Atrium Systolic Dimension: 3.36 cm Mitral Valve MV E to A Ratio: 1.67 MV Max Gradient: MV Mean Gradient: Mitral Valve A-Wave Peak Velocity: 0.48 m/s Mitral Valve E-Wave Peak Velocity: 0.79 m/s Cardiovascular Orifi ce Area: Right Ventricle RV Internal Diastoli c Dimension: 3.04 cm Aorta AO Root Diam: 3.22 cm Ascending Ao Diam: 3 .06 cm Aortic Valve AoV Area (Peak Isidoro): 2.83 cm2, 2.83 cm2 AoV Area (VTI): 2.89 cm2, 2.89 cm2 Deceleration [place]: Pressure Half-Time: Peak Velocity(Antegr tracie Flow): 1.01 m/s Peak Gradient(Antegr tracie Flow): 4.09 mm[Hg] Mean Velocity(Antegr tracie Flow): 0.69 m/s Mean Gradient(Antegr tracie Flow): 2.17 mm[Hg] Velocity Time Integr al: 28.96 cm Tricuspid Valve Peak Velocity (Regurgitant Flow): 2.35 m/s, 2.84 m/s, 2.98 m/s Peak Velocity: Pulmonic Valve Mean Gradient: Mean Velocity: Peak Velocity: 0.64 m/s Peak Gradient: 1.68 mm[Hg], 1.57 mm[Hg] Right Atrium Right Atrium Systoli c Pressure: 36.13 ml, 36.13 ml Dictated by: Alexandro Tracy M.D. on 03/14/2024 at 10:09 Approved by: Alexandro Tracy M.D. on 03/14/2024 at 10:15 Dictated By: Alexandro Tracy M.D. Signed By: 03/14/24 1017 DD/ 1016 TD/TT: Dispatch Clerk: MM tomosynthesis screening B I Reviewed date:03/13/2024 01:03:29 PM Interpretation: Performing Lab: Notes/Report: Source Facility: [place] [address] Mammography Report Signed Patient: CONSTANTINO MENDIOLA MR#: [id number] : 1970 Acct:[id number] Age/Sex: 53 / F ADM Date: 03/13/24 Loc: MAMMO Attending Dr: JUDI YOUSSEF Ordering Physician: JUDI YOUSSEF Results: Date of Service: 03/13/24 Follow Up: Procedure(s): MM tomosynthesis screening BI Accession Number(s): [id number] cc: JUDI YOUSSEF Patient Name: CONSTANTINO MENDIOLA MR#: [id number] : 1970 Exam Date: 03/13/2024 Ordering Doctor: JUDI YOUSSEF [facility] RADIOLOGY REPORT PROCEDURE: MM TOMOSYNTHESIS SCREENING BI COMPARISON: MG MAMM SCREEN 3D MAC[place]IO CAD, 11/18/2021. MG MAMM SCREEN 3D [place] CAD, 11/30/2022. INDICATIONS: Screening Calculator Name NCI Breast Cancer Risk Assessment Tool 5 Year Breast Cancer Risk 0.90% Lifetime Breast Cancer Risk 7.30% Personal Breast Cancer No Personal Ovarian Cancer No Treatments None Family Cancers Aunt-maternal with breast cancer at age 55; Cousin-maternal with ovarian cancer at age 17; Father with unknown cancer at age 87; Grandfather-maternal with colon cancer at age 84. LOCATION: [facility] BREAST COMPOSITION: There are scattered areas of fibroglandular density. FINDINGS: DIAGNOSTIC CATEGORY 1--NEGATIVE. NO CHANGE FROM COMPARISON ASSESSMENT. RIGHT BREAST: No significant suspicious finding. LEFT BREAST: No significant suspicious finding. RECOMMENDATIONS: ROUTINE MAMMOGRAM AND CLINICAL EVALUATION IN 12 MONTHS. PLEASE NOTE: A NORMAL MAMMOGRAM DOES NOT EXCLUDE THE POSSIBILITY OF BREAST CANCER. A CLINICALLY SUSPICIOUS PALPABLE LUMP SHOULD BE BIOPSIED. Dictated by: Isaac Corrigan MD on 03/13/2024 at 09:57 Approved by: Isaac Corrigan MD on 03/13/2024 at 10:22 Dictated By: Isaac Corrigan M.D. Signed By: 03/13/24 1023 DD/ 1022 TD/TT: Dispatch Clerk: [place] [address] Mammography Report Signed Patient: ARIELLE MENDIOLA MR#: [id number] : 1970 Acct:[id number] Age/Sex: 53 / F ADM Date: 03/13/24 Loc: MAMMO Attending Dr: JUDI YOUSSEF Ordering Physician: JUDI YOUSSEF Results: Date of Service: 05/29 Follow Up: Procedure(s): MM tomosynthesis screening BI Accession Number(s): [id number] cc: JUDI YOUSSEF Patient Name: CONSTANTINO MENDIOLA MR#: [id number] : 1970 Exam Date: 03/13/2024 Ordering Doctor: EWELINA YOUSSEF [facility] RADIOLOGY REPORT PROCEDURE: MM TOMOSYNTHESIS SCREENING BI COMPARISON: MG MAMM SCREEN 3D [place] CAD, 11/18/2021. MG MAMM SCREEN 3D [place] CAD, 11/30/2022. INDICATIONS: Screening Calculator Name NCI Breast Cancer Risk Assessment Tool 5 Year Breast Cancer Risk 0.90% Lifetime Breast Canc er Risk 7.30% Personal Breast Cancer No Personal Ovarian Can cer No Treatments None Family Cancers Aunt-maternal with breast cancer at age 55; Cousin-maternal with ovarian cancer at age 17; Father with unknown cancer at age 87; Grandfather-maternal with colon cancer at age 84. LOCATION: [facility] BREAST COMPOSITION: There are scattered areas of fibroglandular density. FINDINGS: DIAGNOSTIC CATEGORY 1--NEGATIVE. NO CHANGE FROM COMPARISON ASSESSMENT. RIGHT BREAST: No significant suspicious finding. LEFT BREAST: No significant suspicious finding. RECOMMENDATIONS: ROUTINE MAMMOGRAM AN D CLINICAL EVALUATION IN 12 MONTHS. PLEASE NOTE: A KASSIE L MAMMOGRAM DOES NOT EXCLUDE THE POSSIBILITY OF BREAST CANCER. A CLINICALLY SUSPICIOUS PALPABLE LUMP SHOULD BE BIOPSIED. Dictated by: Isaac vizcarra MD on 03/13/2024 at 09:57 Approved by: Isaac vizcarra MD on 03/13/2024 at 10:22 Dictated By: Juvencio Corrigan M.D. Signed By: 03/13/24 1023 DD/ 1022 TD/TT: Dispatch Clerk: HEMOGLOBIN Reviewed date:03/13/2024 01:02:25 PM Interpretation: Performing Lab: Notes/Report: [facility] , Hemoglobin 11.7 12.0-16.0 g/dL Performing Lab: see note ML - [facility] LB PROF CHEM 8 (BAS METB) Reviewed date:01/21/2025 01:56:32 PM Interpretation: Performing Lab: Notes/Report: [facility] , Sodium 144 136-145 mmol/L Potassium 4.4 3.5-5.1 mmol/L Chloride 109 98-107 mmol/L Carbon Dioxide 28.1 21.0-32.0 mmol/L Anion Gap 11.3 Glucose 109 74-106 mg/dL Blood Urea Nitrogen 21.0 7.0-18.0 mg/dL Creatinine 0.88 0.55-1.02 mg/dL Estimated GFR ( Milagro >60 >=60 mL/min/1.73m 2 Estimated GFR (Non- Skylar >60 >=60 mL/min/1.73m 2 BUN Creatinine Ratio 23.9 Calcium 9.6 8.5-10.1 mg/dL Performing Lab: see note ML - [facility] LB CBC AUTO DIFF Reviewed date:01/21/2025 01:56:32 PM Interpretation: Performing Lab: Notes/Report: [facility] , White Blood Count 6.6 4.0-11.0 10 3/uL Red Blood Count 3.88 4.20-5.40 10 6/uL Hemoglobin 11.4 12.0-16.0 g/dL Hematocrit 35.6 36.0-48.0 % Mean Corpuscular Volume 91.8 81.0-99.0 fL Mean Corpuscular Hemoglobin 29.4 26.7-34.0 pg Mean Corpuscular HGB Conc 32.0 29.9-35.2 g/dL Red Cell Distribution Width 12.9 11.0-15.0 % Platelet Count 321 150-450 10 3/uL Mean Platelet Volume 9.4 9.5-13.5 fL Neutrophils Percent Auto 69.1 43.0-75.0 % Lymphocytes Percent Auto 21.4 20.5-60.0 % Monocytes Percent Auto 6.7 1.7-12.0 % Eosinophils Percent Auto 2.3 0.9-7.0 % Basophils Percent Auto 0.5 0.2-2.0 % Immature Granulocytes Pct Auto 0.0 0.0-0.5 % Neutrophils Absolute Auto 4.5 1.4-6.5 10 3/uL Lymphocytes Absolute Auto 1.4 1.2-3.8 10 3/uL Monocytes Absolute Auto 0.4 0.3-0.8 10 3/uL Eosinophils Absolute Auto 0.2 0.0-0.7 10 3/uL Basophils Absolute Auto 0.0 0.0-0.1 10 3/uL Immature Granulocytes Abs Auto 0.00 0.00-0.03 10 3/uL Performing Lab: see note ML - [facility] LB PROF 14(COMP METB) Reviewed date:01/10/2025 11:54:39 AM Interpretation: Performing Lab: Notes/Report: [facility] , Sodium 143 136-145 mmol/L Potassium 3.8 3.5-5.1 mmol/L Chloride 107 98-107 mmol/L Carbon Dioxide 29.5 21.0-32.0 mmol/L Anion Gap 10.3 Glucose 93 74-106 mg/dL Blood Urea Nitrogen 15.0 7.0-18.0 mg/dL Creatinine 0.85 0.55-1.02 mg/dL Estimated GFR ( Milagro >60 >=60 mL/min/1.73m 2 Estimated GFR (Non- Skylar >60 >=60 mL/min/1.73m 2 BUN Creatinine Ratio 17.6 Calcium 9.1 8.5-10.1 mg/dL Bilirubin Total 0.3 0.2-1.0 mg/dL Aspartate Amino Transferase 18 15-37 U/L Alanine Aminotransferase 23 14-59 U/L Alkaline Phosphatase 139 46-116 U/L Total Protein 6.5 6.4-8.2 g/dL Albumin Level 3.4 3.4-5.0 g/dL Globulin 3.1 Albumin Globulin Ratio 1.1 Performing Lab: see note ML - [facility] LB CBC AUTO DIFF Reviewed date:01/10/2025 11:54:39 AM Interpretation: Performing Lab: Notes/Report: [facility] , White Blood Count 5.5 4.0-11.0 10 3/uL Red Blood Count 4.20 4.20-5.40 10 6/uL Hemoglobin 12.3 12.0-16.0 g/dL Hematocrit 37.8 36.0-48.0 % Mean Corpuscular Volume 90.0 81.0-99.0 fL Mean Corpuscular Hemoglobin 29.3 26.7-34.0 pg Mean Corpuscular HGB Conc 32.5 29.9-35.2 g/dL Red Cell Distribution Width 12.7 11.0-15.0 % Platelet Count 330 150-450 10 3/uL Mean Platelet Volume 9.4 9.5-13.5 fL Neutrophils Percent Auto 61.5 43.0-75.0 % Lymphocytes Percent Auto 27.5 20.5-60.0 % Monocytes Percent Auto 6.6 1.7-12.0 % Eosinophils Percent Auto 3.3 0.9-7.0 % Basophils Percent Auto 0.7 0.2-2.0 % Immature Granulocytes Pct Auto 0.4 0.0-0.5 % Neutrophils Absolute Auto 3.4 1.4-6.5 10 3/uL Lymphocytes Absolute Auto 1.5 1.2-3.8 10 3/uL Monocytes Absolute Auto 0.4 0.3-0.8 10 3/uL Eosinophils Absolute Auto 0.2 0.0-0.7 10 3/uL Basophils Absolute Auto 0.0 0.0-0.1 10 3/uL Immature Granulocytes Abs Auto 0.02 0.00-0.03 10 3/uL Performing Lab: see note ML - [facility] LB CT abdomen pelvis wo con Reviewed date:12/18/2024 02:35:38 PM Interpretation: Performing Lab: Notes/Report: Source Facility: [facility]-[address] [place] [address] [place] [address] CT Scan Report Signed Patient: CONSTANTINO MENDIOLA MR#: [id number] : 1970 Acct:[id number] Age/Sex: 54 / F ADM Date: 12/18/24 Loc: ER Attending Dr: Ordering Physician: aRymundo Pisano M.D. Date of Service: 12/18/24 Procedure(s): CT abdomen pelvis wo con Accession Number(s): [id number] cc: JUDI YOUSSEF [place] [id number] Patient Name: CONSTANTINO MENDIOLA MRN: [facility]:[id number] date: 1970 Sex: F Assigned Patient Location: ER Current Patient Location: ER Accession/Order Number: [id number] Exam Date: 12/18/2024 10:04 Report Date: 12/18/2024 10:25 At the request of: RAYMUNDO PISANO MD Procedure: CT abdomen pelvis wo con CT CHEST, ABDOMEN AND PELVIS WITHOUT CONTRAST COMPARISON: Chest 12/28/2019 and abdomen/pelvis 201912/24/2023 CLINICAL DATA: Acute onset of difficulty swallowing. Shortness of breath, left rib and flank pain. Spiral images were obtained through the chest, abdomen and pelvis without contrast. Images of the chest were reviewed using both narrow and wide window settings. This CT exam was performed using one or more following dose reduction techniques: Automated exposure control, adjustment of the mA and/or kV according to patient size, or use of iterative reconstruction technique. The heart is within normal limits for size. This is trace amount of pericardial fluid. No aortic aneurysm is identified. There are small nonpathologic mediastinal lymph nodes. A small hiatal hernia is visualized. There is minimal atelectasis or scarring, predominantly at the left base. There is no other consolidation or pneumothorax. A trace amount of pleural fluid is seen bilaterally. There is a punctate nodular density at the left lower lobe (axial image 69). This is too small to further characterize. No additional pulmonary nodularity is seen. No acute displaced rib fractures are identified. There is subtle levoscoliotic curvature and mild degenerative changes at the spine. Evaluation of the intra-abdominal organs is slightly limited by the absence of contrast. The gallbladder is surgically absent. No common duct stones are noted. No intrahepatic masses are seen. The spleen, pancreas and adrenal glands show no acute findings. No renal calculi or hydronephrosis are identified. No ureteral dilatation or stones are seen. The abdominal aorta is normal caliber. There are a few tiny lymph nodes. There is no ascites. There are postoperative changes at the GE junction and reported hiatal hernia repair. No dilated small bowel loops are seen. There is air and stool at the right colon. The left colon is not as well distended. There is subtle dextroscoliotic curvature and minor degenerative change at the spine. There are no acute compression fractures. Images through the pelvis show a tiny umbilical hernia containing fat. There are normal caliber small bowel loops. There is mild stool at the cecum. The distal colon is decompressed. No diverticular disease is noted. The appendix and uterus are surgically absent. The urinary bladder shows no abnormalities for the degree of distention. CT/CT abdomen pelvis wo con IMPRESSION: MINIMAL PERICARDIAL AND PLEURAL EFFUSION. MINOR ATELECTASIS OR SCARRING AND PUNCTATE LEFT LOWER LOBE NODULE. RECURRENT SMALL HIATAL HERNIA. NO BOWEL OR URINARY TRACT OBSTRUCTION. NO OTHER ACUTE FINDINGS. Impression dictated by: Columba Domínguez M.D.12/18/2024 10:25 AM Dictation Location: [place] [address] Electronically authenticated by: [id number] Y Date: 12/18/2024 10:25 Dictated By: Columba Domínguez M.D. Signed By: 12/18/24 1027 DD/ 1025 TD/TT: Dispatch Clerk: [place] [address] CT Scan Report Signed Patient: ARIELLE MENDIOLA MR#: [id number] : 1970 Acct:[id number] Age/Sex: 54 / F ADM Date: 12/18/24 Loc: ER Attending Dr: Ordering Physician: Raymundo Pisano M.D. Date of Service: 12/18/24 Procedure(s): CT abd omen pelvis wo con Accession Number(s): [id number] cc: JUDI YOUSSEF [place] [place] [address] Patient Name: CONSTANTINO MENDIOLA MRN: [id number] date: 1970 Sex: F Assigned Patient Location: ER Current Patient Loca tion: ER Accession/Order Numb er: [id number] Exam Date: 12/18/2024 10:04 Report Date: 12/18/2024 10:25 At the request of: RAYMUNDO PISANO MD Procedure: CT abdome n pelvis wo con CT CHEST, ABDOMEN AN D PELVIS WITHOUT CONTRAST COMPARISON: Chest 12/28/2019 and abdomen/pelvis 201912/24/2023 CLINICAL DATA: Acute onset of difficulty swallowing. Shortness of breath, left rib and flank pain. Spiral images were obtained through the chest, abdomen and pelvis without contrast. Images of the chest were reviewed using both narrow and wide window settings. This CT ex am was performed using one or more following dose reduction techniques : Automated exposure control, adjustment of the mA and/or kV according to laz ent size, or use of iterative reconstruction technique. The heart is within normal limits for size. This is trace amount of pericardial fluid. N o aortic aneurysm is identified. There are small nonpathologic medias tinal lymph nodes. A small hiatal hernia is visualized. There is minimal atelectasis or scarring, predominantly at the left base. There is no other consolidation or pneumothorax. A trace amount of pleural fluid is seen bilaterally. There is a punctate nodular density at the left lower lobe (axial im age 69). This is too small to further characterize. No additional pulmonary nodularity is seen. No acute displaced rib fractures are identified. There is subtle levoscoliotic curvature and mild degenerative changes at the spine. Evaluation of the intra-abdominal organs is slightly limited by the absence of contrast. The gallbl adder is surgically absent. No common duct stones are noted. No intrahepat ic masses are seen. The spleen, pancreas and adrenal glands show no acute findings. No renal calculi or hydronephrosis are identified. No urete ral dilatation or stones are seen. The abdominal aorta is normal caliber. T here are a few tiny lymph nodes. There is no ascites. There are postoperat maninder changes at the GE junction and reported hiatal hernia repair. No dilated s mall bowel loops are seen. There is air and stool at the right colon. The lef t colon is not as well distended. There is subtle dextroscoliotic curv ature and minor degenerative change at the spine. There are no acute kinjal imelda fractures. Images through the p edgar show a tiny umbilical hernia containing fat. There are normal caliber s mall bowel loops. There is mild stool at the cecum. The distal colon is decompressed. No diverticular disease is noted. The appendix and uterus are surgi lois absent. The urinary bladder shows no abnormalities for the degree of distention. C T/CT abdomen pelvis wo con IMPRESSION: MINIMAL PERICARDIAL AND PLEURAL EFFUSION. MINOR ATELECTASIS OR SCARRING AND PUNCTATE LEFT LOWER LOBE NODULE. RECURRENT SMALL HIAT AL HERNIA. NO BOWEL OR URINARY TRACT OBSTRUCTION. NO OTHER ACUTE FINDINGS. Impression dictated by: Columba Domínguez M.D.12/18/2024 10:25 AM Dictation Location: [place] [address] Electronically authenticated by: [id number] Y Date: 12/18/2024 10:25 Dictated By: Columba Domínguez M.D. Signed By: 12/18/24 1027 DD/ 1025 TD/TT: Dispatch Clerk: CT chest wo con Reviewed date:12/18/2024 02:35:38 PM Interpretation: Performing Lab: Notes/Report: Source Facility: [place] [address] CT Scan Report Signed Patient: CONSTANTINO MENDIOLA MR#: [id number] : 1970 Acct:[id number] Age/Sex: 54 / F ADM Date: 12/18/24 Loc: ER Attending Dr: Ordering Physician: Raymundo Pisano M.D. Date of Service: 12/18/24 Procedure(s): CT chest wo con Accession Number(s): [id number] cc: JUDI YOUSSEF [place] [address] Patient Name: CONSTANTINO MENDIOLA MRN: [id number] date: 1970 Sex: F Assigned Patient Location: ER Current Patient Location: ER Accession/Order Number: [id number] Exam Date: 12/18/2024 10:04 Report Date: 12/18/2024 10:25 At the request of: RAYMUNDO PISANO MD Procedure: CT abdomen pelvis wo con CT CHEST, ABDOMEN AND PELVIS WITHOUT CONTRAST COMPARISON: Chest 12/28/2019 and abdomen/pelvis 201912/24/2023 CLINICAL DATA: Acute onset of difficulty swallowing. Shortness of breath, left rib and flank pain. Spiral images were obtained through the chest, abdomen and pelvis without contrast. Images of the chest were reviewed using both narrow and wide window settings. This CT exam was performed using one or more following dose reduction techniques: Automated exposure control, adjustment of the mA and/or kV according to patient size, or use of iterative reconstruction technique. The heart is within normal limits for size. This is trace amount of pericardial fluid. No aortic aneurysm is identified. There are small nonpathologic mediastinal lymph nodes. A small hiatal hernia is visualized. There is minimal atelectasis or scarring, predominantly at the left base. There is no other consolidation or pneumothorax. A trace amount of pleural fluid is seen bilaterally. There is a punctate nodular density at the left lower lobe (axial image 69). This is too small to further characterize. No additional pulmonary nodularity is seen. No acute displaced rib fractures are identified. There is subtle levoscoliotic curvature and mild degenerative changes at the spine. Evaluation of the intra-abdominal organs is slightly limited by the absence of contrast. The gallbladder is surgically absent. No common duct stones are noted. No intrahepatic masses are seen. The spleen, pancreas and adrenal glands show no acute findings. No renal calculi or hydronephrosis are identified. No ureteral dilatation or stones are seen. The abdominal aorta is normal caliber. There are a few tiny lymph nodes. There is no ascites. There are postoperative changes at the GE junction and reported hiatal hernia repair. No dilated small bowel loops are seen. There is air and stool at the right colon. The left colon is not as well distended. There is subtle dextroscoliotic curvature and minor degenerative change at the spine. There are no acute compression fractures. Images through the pelvis show a tiny umbilical hernia containing fat. There are normal caliber small bowel loops. There is mild stool at the cecum. The distal colon is decompressed. No diverticular disease is noted. The appendix and uterus are surgically absent. The urinary bladder shows no abnormalities for the degree of distention. CT/CT chest wo con IMPRESSION: MINIMAL PERICARDIAL AND PLEURAL EFFUSION. MINOR ATELECTASIS OR SCARRING AND PUNCTATE LEFT LOWER LOBE NODULE. RECURRENT SMALL HIATAL HERNIA. NO BOWEL OR URINARY TRACT OBSTRUCTION. NO OTHER ACUTE FINDINGS. Impression dictated by: Columba Domínguez M.D.12/18/2024 10:25 AM Dictation Location: [place] [address] Electronically authenticated by: [id number] Y Date: 12/18/2024 10:25 Dictated By: Columba Domínguez M.D. Signed By: 12/18/24 1028 DD/ 1025 TD/TT: Dispatch Clerk: [place] [address] CT Scan Report Signed Patient: ARIELLE MENDIOLA MR#: [id number] : 1970 Acct:[id number] Age/Sex: 54 / F ADM Date: 12/18/24 Loc: ER Attending Dr: Ordering Physician: Raymundo Pisano M.D. Date of Service: 12/18/24 Procedure(s): CT zenaida st wo con Accession Number(s): [id number] cc: JUDI YOUSSEF [place] [address] Patient Name: CONSTANTINO MENDIOLA MRN: [facility]:[id number] date: 1970 Sex: F Assigned Patient Location: ER Current Patient Loca tion: ER Accession/Order Numb er: [id number] Exam Date: 12/18/2024 10:04 Report Date: 12/18/2024 10:25 At the request of: RAYMUNDO PISANO MD Procedure: CT abdome n pelvis wo con CT CHEST, ABDOMEN AN D PELVIS WITHOUT CONTRAST COMPARISON: Chest 12/28/2019 and abdomen/pelvis 201912/24/2023 CLINICAL DATA: Acute onset of difficulty swallowing. Shortness of breath, left rib and flank pain. Spiral images were obtained through the chest, abdomen and pelvis without contrast. Images of the chest were reviewed using both narrow and wide window settings. This CT ex am was performed using one or more following dose reduction techniques : Automated exposure control, adjustment of the mA and/or kV according to laz ent size, or use of iterative reconstruction technique. The heart is within normal limits for size. This is trace amount of pericardial fluid. N o aortic aneurysm is identified. There are small nonpathologic medias tinal lymph nodes. A small hiatal hernia is visualized. There is minimal atelectasis or scarring, predominantly at the left base. There is no other consolidation or pneumothorax. A trace amount of pleural fluid is seen bilaterally. There is a punctate nodular density at the left lower lobe (axial im age 69). This is too small to further characterize. No additional pulmonary nodularity is seen. No acute displaced rib fractures are identified. There is subtle levoscoliotic curvature and mild degenerative changes at the spine. Evaluation of the intra-abdominal organs is slightly limited by the absence of contrast. The gallbl adder is surgically absent. No common duct stones are noted. No intrahepat ic masses are seen. The spleen, pancreas and adrenal glands show no acute findings. No renal calculi or hydronephrosis are identified. No urete ral dilatation or stones are seen. The abdominal aorta is normal caliber. T here are a few tiny lymph nodes. There is no ascites. There are postoperat maninder changes at the GE junction and reported hiatal hernia repair. No dilated s mall bowel loops are seen. There is air and stool at the right colon. The lef t colon is not as well distended. There is subtle dextroscoliotic curv ature and minor degenerative change at the spine. There are no acute kinjal imelda fractures. Images through the p edgar show a tiny umbilical hernia containing fat. There are normal caliber s mall bowel loops. There is mild stool at the cecum. The distal colon is decompressed. No diverticular disease is noted. The appendix and uterus are surgi lois absent. The urinary bladder shows no abnormalities for the degree of distention. C T/CT chest wo con IMPRESSION: MINIMAL PERICARDIAL AND PLEURAL EFFUSION. MINOR ATELECTASIS OR SCARRING AND PUNCTATE LEFT LOWER LOBE NODULE. RECURRENT SMALL HIAT AL HERNIA. NO BOWEL OR URINARY TRACT OBSTRUCTION. NO OTHER ACUTE FINDINGS. Impression dictated by: Columba Domínguez M.D.12/18/2024 10:25 AM Dictation Location: [place] [address] Electronically authenticated by: [id number] Y Date: 12/18/2024 10:25 Dictated By: Columba Domínguez M.D. Signed By: 12/18/24 1028 DD/ 1025 TD/TT: Dispatch Clerk: Urine Culture - [facility] Reviewed date:12/21/2024 08:36:06 AM Interpretation: Performing Lab: Notes/Report: [facility] , Urine Culture - [facility] See Below For Report Urine Culture - [facility] Testing performed at [facility] O:STRAGA Isolated Urine Culture - [facility] Organism Comments Urine Culture - [facility] [address], [place] [address] Urine Culture - [facility] Testing performed at [facility] O:STRAGA Isolated Urine Culture - [facility] Organism Comments Urine Culture - [facility] See Below For Report Urine Culture - [facility] Testing performed at [facility] O:STRAGA Isolated Urine Culture - [facility] Organism Comments Urine Culture - [facility] See Below For Report [facility]rine Culture - [facility] Testing performed at [facility] O:STRAGA Isolated Urine Culture - [facility] Organism Comments Urine Culture - [facility] 15,000 CFU/ML Urine Culture - [facility] Testing performed at [facility] O:STRAGA Isolated Urine Culture - [facility] Organism Comments Urine Culture [facility] Urine Culture - [facility] Testing performed at [facility] O:STRAGA Isolated Urine Culture - [facility] Organism Comments [facility]rine Culture - [facility] * This is a correct ed result. * Urine Culture [facility] Testing performed at [facility] O:STRAGA Isolated Urine Culture - [facility] Organism Comments Urine Culture [facility] Urine Culture [facility] Testing performed at [facility] O:STRAGA Isolated Urine Culture - [facility] Organism Comments [facility] A prior result that was reported as final has been changed. Urine Culture [facility] Testing performed at [facility] O:STRAGA Isolated Urine Culture - [facility] Organism Comments Performing Lab: see note ML - [facility] LB SEE REPORT - Bingo Floater Id information not found for OBX-specific email producer legend URINE MICROSCOPIC ONLY Reviewed date:12/18/2024 02:35:38 PM Interpretation: Performing Lab: Notes/Report: [facility] , WBC Urine 5-10 NONE SEEN #/HPF RBC Urine 2-5 0-2 #/HPF Bacteria Urine TRACE NONE SEEN #/HPF Mucus Urine TRACE NONE SEEN Squamous Epithelial Cell Urine FEW NONE/RARE #/LPF Crystals Seen? None Seen None Seen #/HPF Cast Seen? NONE SEEN NONE SEEN #/LPF Urine Culture Indicated YES[place] [place] Performing Lab: see note ML - [facility] LB Reason For Referral Reason hypoglycemia Diagnosis 1 Hypoglycemia (E16.2) Referral Organization [facility] Referring Provider First Name Judi Referring Provider Last Name Regina Referring Provider Speciality Family [facility] melo Referred Provider Kulwant Hodge Referred Provider Specialty Endocrinolog y Referral Priority Routine Medications Medication SIG (Take, Route, Frequency, Duration) Notes Start Date End Date Status Lisinopril 40 MG 1 tablet Orally Once a day for 30 days 03/20/2024 Active Dicyclomine HCl 20 MG 1 tablet Orally Th ree times a day Active Reglan 5 MG 1 tablet before meal s and at HS Orally qid for 30 days 02/07/2025 Active Aspirin 81 81 MG 1 tablet Orally Once a day Active Daily Vitamin Active Promethazine HCl 25 MG 1 tablet [...] pain Sublingual AC and HS 12/05/2023 Active Ketorolac Tromethamine 10 MG 1 tablet wi th food or milk as needed Orally every 6 hrs Active levETIRAcetam 1000 MG 1 tablet Orally ev sruthi 12 hrs for 7 days Active Immunizations Vaccine Route Administration Date Status Comme nts SARS-COV-2 (COVID 19 Pfizer 30mcg/0.3mL) Unknown 02/05/2021 Administered SARS-COV-2 (COVID 19 Pfizer 30mcg/0.3mL) Unknown 02/26/2021 Administered SARS-COV-2 (COVID 19 Pfizer 30mcg/0.3mL) Unknown 11/06/2021 Administered SARS-COV-2 (COVID 19 Pfizer 30mcg/0.3mL), mirian sucrose Unknown 03/18/2022 Administered SARS-COV-2 (COVID 19) bivale nt 30 mcg/0.3 ml dose Unknown 06/15/2022 Administered ZOSTER (SHINGLES) VACCINE (HZV) Unknown 04/27/2024 Admi nistered Social History Tobacco Use: Social History Observation [...] Problem Status W/U Status Risk Notes Problem Hypomagnesemia (443915534) Hypomagnesemia (E83.42) Active confirmed Problem 01735214 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 Problem 309659622 Functional dyspepsia (K30) Active confirmed Problem Gastroparesis (266217044) Gastroparesis (K31.84) Active confirmed Problem Gastroesophageal reflux disease (847977321) GERD (gastroesophageal reflux disease) (K21.9) Active confirmed Problem Hypertension (35865747) HTN (hypertension) (I10) Active confirmed Problem Palpitations (28720355) Palpitation (R00.2) Active confirmed Problem Tachycardia (5067946) Tachycardia (R00.0) Active confirmed Problem Depression (205172492) Depression (F32.9) Active confirmed Problem Degeneration of lumbar intervertebral disc (86939816) Lumbar degenerative disc disease (M51.36) Active confirmed Problem Urinary tract infectious disease (40728474) UTI (urinary tract infection) (N39.0) Active confirmed Problem Vitamin D deficiency (84527465) Vitamin D deficiency (E55.9) Active confirmed Problem Hypoglycemia (393170057) Hypoglycemia (E16.2) Active confirmed Problem Diverticulitis (051351545) Diverticulitis (K57.92) Active confirmed Problem Neutropenia (154999821) Neutropenia (D70.9) Active confirmed Problem Iron deficiency anemia (21372921) Anemia, iron deficiency (D50.9) Active confirmed Problem Gastro-esophageal reflux (080759360) Gastro-esophageal reflux (K21.9) Active confirmed Problem Ileus (492950254) Ileus (K56.7) Active confirme d Problem Malnutrition of moderate degree (Horner: 60% to less than 75% of standard weight) (04674821) Moderate protein malnutrition (E44.0) Active confirmed Problem Intestinal obstruction (77658615) SBO (small bowel obstruction) (K56.609) Active confirmed Vital Signs Blood pressure diastolic 90 mm Hg 02/07/2025 Height 67 in 02/07/2025 Blood pressure systolic 158 mm Hg 02/07/2025 Weight 187.8 lbs 02/07/2025 BMI 29.41 kg/m2 02/07/2025 Encounters Encounter Location Date Provider Diagnosis [place] [address] [place] [address] 09/03/2024 Judi Youssef Ileus K56.[address] [address] 10/26/2024 Judi Youssef Seizure R56.[address] [address] 12/21/2024 Judi Youssef Muscle strain T14.8X XA [facility] [place] [address] [facility] [place] [address] 02/07/2025 Judi Youssef UTI (urinary tract infection) N39.0 ; HTN (hypertension) I10 and Functional dyspepsia K30 [place] [address] [place] [address] 04/27/2024 Judi Youssef Hypoglycemia E16.[address] [place] [address] [facility] [address] 11/27/2024 Judi Youssef [facility] [place] [address] [place] [place] [place] [address] 11/28/2024 Judi Youssef [facility] [place] [address] [place] [place] [place] [address] 01/09/2025 Judi Youssef [facility] [place] [address] [place] [place] [place] [address] 01/10/2025 Judi Youssef [facility] [place] [address] [place] [address] 07/19/2024 Judi Youssef Renal lesion N28.9 [facility] [place] [address] [place] [place] [place] [address] 08/31/2024 Judi Youssef [facility] [place] [address] [place] [place] [place] [address] 09/03/2024 Judi oYussef [facility] [place] [address] [place] [place] [place] [address] 09/17/2024 Judi Youssef [facility] [address] [facility] [place] [place] [address] 09/21/2024 Isaac Izaguirre [facility] [address] [facility] [place] [place] [address] 11/19/2024 Judi Youssef Vitamin D deficiency E55.9 and Vitamin B12 deficiency E53.8 [facility] [place] [address] [place] [place] [address] 03/13/2024 Judi Youssef [facility] [place] [address] [place] [place] [address] 03/20/2024 Judi Youssef Assessments Encounter Date Diagnosis (ICD Code) Assessment Notes Treatment Notes Treatment Clinical Notes Section Notes 04/27/2024 Hypoglycemia (ICD-10 - E16.2) continue to monitor, record lows OTC glucose tablets dont skip meals, snacks protein with carb referral to endocrine 09/03/2024 Ileus (ICD-10 - K56.7) fu Jazmine, has phone number to call labs continue with stool softeners 10/26/2024 Seizure (ICD-10 - R56.9) fu neurology as directed continue with new med 12/21/2024 Muscle strain (ICD-10 - T14.8XXA) left side rest, ice, nsaids stop picking up 12 and 16 hr shifts fu if not improving 02/07/2025 UTI (urinary tract infection) (ICD-10 - N39.0) 02/07/2025 HTN (hypertension) (ICD-10 - I10) increase LIsinopril dose to 40 bp check 1-2 weeks 07/19/2024 Renal lesion (ICD-10 - N28.9) 11/19/2024 Vitamin D deficiency (ICD-10 - E55.9) 11/19/2024 Vitamin B12 deficiency (ICD-10 - E53.8) 02/07/2025 Functional dyspepsia (ICD-10 - K30) phenergan not helping corey has helped in past 12/21/2024 Other has fu with cardiology and neurology, needs to call GI for fu states she will Plan Of Treatment Pending Test Test Name Order Date CMP (COMPLETE METABOLIC PANEL) CMP (COMPLETE METABOLIC PANEL) UA (URINALYSIS, COMPLETE) 01/04/2024 UA (URINALYSIS, COMPLETE) 11/07/2023 UA (URINALYSIS, COMPLETE) 02/07/2025 UA (URINALYSIS, COMPLETE) 08/03/2023 UA (URINALYSIS, COMPLETE) 10/18/2023 UA (URINALYSIS, COMPLETE) 12/30/2023 UA (URINALYSIS, COMPLETE) 01/20/2024 CULTURE, STOOL 12/05/2023 CULTURE, URINE w SENSITIVITY 12/30/2023 CULTURE, URINE w SENSITIVITY 01/20/2024 HEMOGLOBIN A1C (GLYCO) 12/30/2023 IRON, TOTAL 12/30/2023 LIPID PANEL (CHOL/TRIG/HDL/LDL) 12/30/19 24 CBC WITH DIFF 12/30/2023 VITAMIN D, 25 LEVEL (TOTAL) 12/30/2023 CT Urogram w/3D Rendering 08/03/2023 US Renals and Bladder 01/04/2024 MRI Lumbar Spine w/o contrast 12/30/2023 Urinalysis Microscopic 08/03/2023 Urinalysis Microscopic 12/05/2023 Urinalysis Microscopic 11/07/2023 Urine Culture 02/07/2025 Urine Culture 01/04/2024 Insulin Level 12/30/2023 C DIFF TOX PCR STOOL 12/05/2023 INFLUENZA A and B, NASAL/NASOPHARYNGEAL (PCR) 01/11/2024 Urine Culture, Routine 10/18/2023 Urine Culture, Routine 10/20/2023 .Urinalysis Microscopic Only 01/20/2024 SARS COVID-2 NASAL - PCR 01/11/2024 SARS COVID-2 NASAL - PCR 02/03/2023 CULTURE URINE 08/03/2023 CULTURE URINE 11/07/2023 PROF 14(COMP METB) 01/04/2024 STREPT SCREEN 02/03/2023 URINE MICROSCOPIC ONLY 01/04/2024 VITAMIN B12 11/19/2024 US KIDNEYS 07/19/2024 XR LSPINE 2_3 VIEWS 11/21/2023 THYROID PANEL (T4/TSH/FREE T3) 4 XR HIP LT 2 3V W PELVIS 11/02/2023 Holter Monitor - 3 days up to 14 days Vitamin D 11/19/2024 Insurance Providers Payer Name Payer Address Payer Phone Subscriber Number Group Number Insured Name Patient Relationship to Insured Coverage Start Date Coverage End Date [employer] ACCESS PPO PLUS LOCAL PLAN [address] [place] [address] [id number] Constantino Mendiola Self - patient is the insured 3 Medical (General) History Medical History History ICD Code Mitrovalve prolapse Acute diverticulitis K57.92 Dyskinesia of esophagus K22.4 Surgical History Surgery Date(Month/Year) Hernia Repair Gallbladder Hysterectomy Hospitalization History Reason Date(Month/Year) Bowel Obstruction- [facility] sent [facility] 08/06 024 bowel obstruction 11/26 bowel obstruction 10/2023 Abd Pain, Vomiting 03/25/2023
--- OUTSIDE RECORDS SUMMARY | 2025-02-08 03:54 | XMS_ITS | Clinical Summary ---
Author Organization [address] [facility] Address [id number] [facility] [place] [address] Care Team Providers Care [employer] Name Role Phone Judi Tapia PROFESSIONAL HEALTHCARE REPRESENTATIVE-DRILL [employer]PER[employer] Primary Care Provider Social History Tobacco Use Types Packs/Day Years Used Date Smoking Tobacco: Never Assessed Comments Unknown Sex and Gender Information Value Date Recorded Sex Assigned at Not on file Legal Sex Female 2:17 PM EDT Gender Identity Not on file Sexual Orientation Not on file Plan of Treatment Health Maintenance Due Date Last Done Comments Depression Screening 1982 Tobacco Screening 1982 Adult BMI Screening 1988 DTaP,Tdap and Td Vaccines (1 - Tdap) 1989 Pap Smear 1991 Zoster (Shingles) Vaccine (1 of 2) 2020 COVID-19 Vaccine (2023-2 5 season) 2024 06/15/2022, 03/18/2022, 11/06/2021, Additional history exists Influenza Vaccine 05/06/2025 06/09/2022 Medical Devices Not on file Insurance [employer] Care Teams [employer] Relationship Specialty Start Date End Date Judi Tapia, PROFESSIONAL HEALTHCARE REPRESENTATIVE-[employer]RILL [employer]PER[employer] [address] [place] [address] PCP - General Family Medicine 12/01/23
--- OUTSIDE RECORDS SUMMARY | 2025-02-08 03:54 | XMS_ITS | Encounter Summary ---
Author Organization [facility] Address [address] [place] [address] Care Team Providers Care Planning Director Name Role Phone Joel Alejandra Primary Care Provider [phone] Rafa Rangel Unavailable [phone] Source Comments In the event this information is protected by the Federal Confidentiality of Alcohol and Drug AbusePatient Records regulations: The Federal rules restrict any use of the information to criminally investigate or prosecute any alcohol or drug abuse patient.[facility] Encounter Details Date Type Department Care Team (Late st Contact Info) Description 07/22/2023 Patient Msg General Surgery [address] [phone] Provider, [facility] Nutrition Summary Social History Tobacco Use Types Packs/Day Years Used Date Smoking Tobacco: Former Cigarettes 1 - 2011 Smokeless Tobacco: Never Comments: still smoke s Alcohol Use Standard Drinks/Week Comments Not Currently 0 (1 standard drink = 0.6 oz pur e alcohol) social PHQ-2 Answer Date Recorded PHQ-2 score 4 07/08/2023 Area Deprivation Index Answer Date Stephane rded National Score (1-100), lower number is lower ri sk 86 05/06/2023 State Score (1-10), lower number is lower risk 8 05/06/2023 Data from: https://www.neighborhoodatlas.medicine.[facility].edu/. Last address used for calculation [address] [...] on filedocumented in this encounter Care Teams Planning Director Relationship Specialty Start Date End Date Joel Alejandra DO PCP - General Family Medicine 04/26/18 Rafa Rangel [address] [id number] Referring General Surgery 04/26/18 documented as of this encounter
--- OUTSIDE RECORDS SUMMARY | 2025-02-08 03:55 | XMS_ITS | CCD ---
Author Organization [facility] Care Team Providers Care Salt Cutter Name Role Phone LEONA MORTENSEN Admitting Unavailable LEONA MORTENSEN Attending Unavailable KEVIN HERRERA Primary Care Unavailable KEVIN HERRERA Referring Unavailable [place] Procedure Practitioner Unavailab ORESTES Cruz Surgeon Unavailable JUDI YOUSSEF Primary Care Physician [phone] DONI Youssef Primary Care Provider DO Conner Griffith Emergency Provider Jennie Ayon Unavailable MD Jennie Ayon Attending Provider [phone] JOHNATHAN RUDOLPH Attending Unavailibis RUDOLPH, DR [...] Admitting Unavailable FAB ., BALTAZAR Attending Unavailable REGINA, JUDI Primary Care Unavailable JE .VIJI Consulting Unavailable FAB ., BALTAZAR Admitting Unavailable FAB ., BALTAZAR Attending Unavailable FAB ., BALTAZAR Consulting Unavailable REGINA, JUDI Primary Care Unavailable CALLY LANTIGUA Consulting Unavailable STEVE ., EUN LARSON Consulting Unavailabl e FAB ., BALTAZAR Admitting Unavailable FAB ., BALTAZAR Attending Unavailable REGINA, JUDI Primary Care Unavailable CHUNG WINN Consulting Unavailable PA, DR NORA Hairston Attending Unavailable PA, DR NORA Hairston Consulting Unavailable PA, DR NORA Hairston Admitting Unavailable REGINA, JUDI Primary Care Unavailable ORESTES VASQUEZ Consulting Unavailable REGINA, JUDI Admitting Unavailable REGINA, JUDI Primary Care Unavailable ZIEBER, DR RUSH Hairston Consulting Unavailable REGINA, JUDI Attending Unavailable REGINA, JUDI Consulting Unavailable REGINA, JUDI Admitting Unavailable REGINA, JUDI Consulting Unavailable REGINA, JUDI Attending Unavailable REGINA, JUDI Primary Care Unavailable FAB ., BALTAZAR Consulting Unavailable FAB ., BALTAZAR Admitting Unavailable FAB ., BALTAZAR Attending Unavailable REGINA, JUDI Primary Care Unavailable REGINA, JUDI Admitting Unavailable ZIEBER, DR RUSH Hairston Consulting Unavailable REGINA, JUDI Attending Unavailable REGINA, JUDI Primary Care Unavailable REGINA, JUDI Consulting Unavailable REGINA, JUDI Primary Care Unavailable ISAAK ., DR BROWN Admitting Unavailable ISAAK ., DR BROWN Attending Unavailable KWAME, DR CASSANDRA Chopra Consulting Unavailable DIAB ., MARTHA Consulting Unavailable FAB ., BALTAZAR Admitting Unavailable FAB ., BALTAZAR Attending Unavailable REGINA, JUDI Primary Care Unavailable ARIANE RIZVI Consulting Unavailable FAB ., BALTAZAR Consulting Unavailable REGINA, JUDI Primary Care Unavailable FAB ., BALTAZAR Consulting Unavailable FAB ., BALTAZAR Admitting Unavailable FAB ., BALTAZAR Attending Unavailable CASSANDRA LISA Consulting Unavailable FAB ., BALTAZAR Admitting Unavailable FAB ., BALTAZAR Attending Unavailable STEVE .EUN Consulting Unavailabl e REGINA, JUDI Primary Care Unavailable REGINA, JUDI Admitting Unavailable ZIEBER, DR RUSH Hairston Consulting Unavailable REGINA, JUDI Attending Unavailable REGINA, JUDI Primary Care Unavailable REGINA, JUDI Consulting Unavailable REGINA, JUDI Admitting Unavailable KWAME, DR CASSANDRA Chopra Consulting Unavailable REGINA, JUDI Attending Unavailable REGINA, JUDI Primary Care Unavailable JUDI YOUSSEF Consulting Unavailable LINDA Youssef-C Judi Joan Primary Care Provider [phone] DO Conner Griffith Emergency Provider Bijan Pete [place] Emergency Provider [facility], Marmaduke Onel Primary Care Provider Rafa Rangel Unavailable [phone] Renny Omalley Unavailable MARQUES BRADLEY Referring Unavailable PAVLOCK, [facility] Primary Care Unavailable PAVLOCK, [facility] Primary Care Unavailable KROH, MARQUES Patel Referring Unavailable KROH, MARQUES Patel Attending Unavailable IMER CHERRY Referring Unavailable PAVLOCK, [facility] Primary Care Unavailable PAVLOCK, [facility] Primary Care Unavailable KROH, MARQUES Patel Referring Unavailable OLIVER TORRES Attending Unavailable KROHMARQUES Referring Unavailable PAVLOCK, [facility] Primary Care Unavailable AMERICO MONTALVO Attending Unavailable KROHMARQUES Referring Unavailable PAVLOCK, [facility] Primary Care Unavailable SLYSLY Attending Unavailable KROHMARQUES Referring Unavailable PAVLOCK, [facility] Primary Care Unavailable BRENNEN SHAW Attending Unavailable Orzech, Yolanda X Attending Unavailable Orzech, Yolanda X Admitting Unavailable DONI Youssef Judi Franco Primary Care Provider MD Jennie Ayon Attending Provider Unallocated , [place] Provider Primary Care Provi christine Judi Youssef MD Unavailable No, Pcp Primary Care Provider Unavailabl e JANUSZ AIJAZ Admitting Unavailable JANUSZTHOMASJAZ Attending Unavailable NO, PCP Primary Care Unavailable Regina LABORATORY HELPER - REJI, Judi S Primary Care Provide r MIGUEL WILD Consulting Unavailable AVASTHI, OBDULIO Admitting Unavailable AVASTHI, OBDULIO Attending Unavailable EWELINA YOUSSEFELA S Primary Care Unavailable AVASTHI, OBDULIO Consulting Unavailable Eliezer Lorenzo Admitting Unavailable Eliezer Lorenzo Attending Unavailable Dasha Yolanda X Attending Unavailable Rush Padilla Consulting Unavailable Porter, MD Rush Consulting Unavailable Porter, Rush Consulting Unavailable Porter, Rush Consulting Unavailable Porter, Rush Consulting Unavailable Porter, Rush Consulting Unavailable Porter, Rush Consulting Unavailable Porter, Rush Consulting Unavailable Porter, Rush Consulting Unavailable Eliezer Lorenzo Admitting Unavailable Eliezer Lorenzo Attending Unavailable Randy Rush Consulting Unavailable MD Rush Padilla Unavailable Porter, Rush Consulting Unavailable Porter, Rush Consulting Unavailable Porter, Rush Consulting Unavailable Porter, Rush Consulting Unavailable Porter, Rush Consulting Unavailable Porter, Rush Consulting Unavailable Porter, Rush Consulting Unavailable Nikki Zhang Unavailable Yolanda Lou Attending Unavailable Orapryl, Yolanda X Admitting Unavailable Yolanda Lou Attending Unavailable Nicanor Perez MD Attending Provider [phone] Asaad, Imad Admitting Unavailable Asaad, Imad [...] Swelling of Lip/Tongue/Thr oat, throat swelling [facility] Repository (11 sources) Penicillins; Translations: [PENICILLINS] Drug allergy (disorder) 09-02-20 15 Rash [facility] Repository (20 sources) cyclobenzaprine; Translations: [cyclobenzaprine] Drug Allergy 04-28-20 18 Pharyngeal swelling (finding), Swelling, Other (See Comments) [facility] (20 sources) Penicillin; Translations: [penicillin] Drug Allergy 04-28-20 18 Swelling (morphologic abnormality), Swelling [facility] (13 sources) penicillAMINE Drug Allergy 04-26-20 24 rash [facility] (2 sources) cyclobenzaprine Drug Allergy 03-23-20 16 [facility] Repository (1 source) traMADol Drug Allergy [facility] Repository (1 source) traMADol Drug Allergy [facility] Repository (11 sources) penicillAMINE Drug Allergy 05-01-20 Rash [facility] (11 sources) Penicillins Drug Allergy 04-28-20 18 Rash, Swelling [facility] (2 sources) Penicillins Propensity to adverse reactions to drug 04-28-20 18 Other (See Comments), Rash, Swelling [facility] (1 source) cyclobenzaprine Drug Allergy 05-01-20 [facility] Repository (1 source) penicillAMINE Drug Allergy 05-01-20 [facility] Repository (1 source) Penicillins Drug allergy (disorder) 05-01-20 [facility] Repository Medications Current Medications Medication Drug [...] Daily, # 30 tab(s), Refills(s) 0, Pharmacy: [facility]/pharmacy #[id number], 170.2, cm, 10/19/24 17:25:00 EST, Height/Length [...] weeks, then 2 times weekly for maintenance, [facility]/pharmacy #[id number], 170, cm, 02/16/24 9:10:00 EDT, [...] # 90 tab(s), Refills(s) 0, [id number], 170, cm, 01/28/22 13:40:00 EDT, Height/Length [...] BID, # 60 tab(s), Refills(s) 0, Pharmacy: [facility]/pharmacy #[id number], 170.2, cm, 10/19/24 17:25:00 EST, Height/Length Dosing, [...] tab(s), Oral, Daily, 30 tab(s), Refill(s) 0, [facility]/pharmacy #[id number], 170.2, cm, 10/19/24 17:25:00 EST, Height/Length [...] Daily, # 90 cap(s), Refills(s) 3, Pharmacy: [facility]/pharmacy #[id number], 170, cm, 01/11/22 9:17:00 EDT, Height/Length Dosing, 83, kg, 01/11/22 9:17:00 EDT, Weight Dosing Start Date: 01/11/22 Status: Ordered omeprazole 40 mg Cap-DR (1 source) Start: 01-28-2022 End: 04-28-2022 take 1 capsule by mouth once daily omeprazole 40 mg Cap-DR 40 mg = 1 cap(s), Oral, Daily, X 90 day(s), # 90 cap(s), Refills(s) 0, Pharmacy: [facility]/pharmacy #[id number], 170, cm, 01/28/22 13:40:00 EDT, [...] April 13, 2018 11:34am polyethylene glycol 3350 85434 mg powder for oral solution (9 sources) [...] 2023 12:00am May 11, 2024 8:09am sennosides, halfway 8.6 mg oral tablet (3 sources) Start: [...] Daily, # 30 tab(s), Refills(s) 0, Pharmacy: [facility]/pharmacy #[id number], 170.2, cm, 10/19/24 17:25:00 EST, Height/Length Dosing, 90.5, kg, 10/19/24 17:25:00 EST, Weight Dosing Start Date: 10/20/24 Status: Ordered Zofran ODT 4 mg Tab-Dis (11 sources) Start: 09-20-2020 take 1 tablet by mouth every six hours as needed for nausea Zofran ODT 4 mg Tab-Dis 4 mg = 1 tab(s), Oral, q6hr, PRN Nausea/Vomiting, # 12 tab(s), Refills(s) 0, [id number], 170, cm, 09/20/20 16:03:00 EST, Height/Length Dosing, 87.5, kg, 09/20/20 16:03:00 EST, Weight Dosing Start Date: 09/20/20 Status: Ordered Completed/Discontinued Medications Medication Drug Class(es) Dates Sig (Normalized) Sig (Original) acetaminophen 325 mg / HYDROcodone bitartrate 5 mg oral tablet (14 sources) Opioid Agonist Start: 06-21-2019 End: 02-15-2023 take 1 tablet by mouth every six hours as needed for pain Hydrocodone-Acetami nophen ([place]) 5-325 mg Tablet Discontinued 1 TAB PO Q6H as needed for Pain June 21, 2019 12:00am February 15, 2023 9:46am Start: 11-12-2018 End: 01-30-2019 take 1 tablet by mouth every four to six hours as needed for pain Hydrocodone-Acetaminophen ([place]) 5-325 mg tablet Discontinued 1 TAB PO [...] day(s), # 120 cap(s), Refills(s) 11, Pharmacy: [facility]/pharmacy #[id number], 170, cm, 05/05/21 14:15:00 EDT, Height/Length Dosing, 83.1, kg, 05/05/21 14:15:00 EDT, Weight Dosing Start Date: 05/05/21 Stop Date: 04/30/22 Status: Ordered Start: 09-20-2020 take 2 capsules by m out four times daily Bentyl 10 mg Cap 20 mg = 2 cap(s), Oral, QID, # 20 cap(s), Refills(s) 0, Pharmacy: [facility]/pharmacy #[id number], 170, cm, 09/20/20 16:03:00 EST, [...] week(s), # 7 cap(s), Refills(s) 0, Pharmacy: [facility]/pharmacy #6177, 170.2, cm, 10/19/24 17:25:00 EST, Height/Length [...] TID, # 120 tab(s), Refills(s) 0, Pharmacy: [facility]/pharmacy #[id number], 170, cm, 04/13/21 15:38:00 EDT, Height/Length Dosing, 84.4, kg, 04/13/21 15:38:00 EDT, Weight Dosing Start Date: 04/13/21 Status: Ordered Start: 04-13-2018 take 1 tablet by ana th four times daily Reglan 10 mg Tab 10 mg = 1 tab(s), Oral, QID, # 120 tab(s), Refills(s) 0, Pharmacy: [facility]/pharmacy #[id number], 170, cm, 07/22/22 14:33:00 EST, [...] day(s), # 90 cap(s), Refills(s) 1, Pharmacy: [facility]/pharmacy #[id number], 170, cm, 04/14/22 14:53:00 EDT, [...] 1 tablet by mouth twice daily Pyridostigmine Turpin 60 mg Tablet Discontinued 60 MG PO [...] 05-10-2019 Chronic Other aftercare (1 source) Other usp (current) drug therapy; Translations: [OTH ACCOUNT RESOLUTION ANALYST CURRENT DRUG THERAPY] Onset: 11-30-2022 Episodic Other aftercare (1 source) Long-term current use of drug therapy; Translations: [Other usp (current) drug therapy] Onset: 10-19-2024 Episodic Other [...] Test Name Value Interpretation Reference Range Facility 36on 02-04-2025 36 Regarding stress robert t result from 01/18/2025: MD Ros Suarez MA Please inform the patient that her stress test is normal. Encourage exercise. Attempted to call patient but mailbox is full and is not accepting messages. Normal [facility] Orders Onlyon 01-11-2025 Orders Only [id number] Arielle Cardoso 1970 F Date Provider Department Center 01/11/2025 [id number] KINCAID [facility] CARD [facility] Heart[facility] Family History Problem Relation Age of Onset Heart attack Father Coronary artery disease Brother Family Status - Relation Status Age at Mother Alive Father Sister Alive Brother Normal [facility] Office Visiton 12-28-2024 Follow-up visit [id number] Arielle Cardoso 1970 F Date Provider Department Center 12/28/2024 [id number] LANDRYJAMES [facility] Family History Problem Relation Age of Onset Heart attack Father Coronary artery disease Brother Family Status - Relation Status Age at Mother Alive Father Sister Alive Brother Level of Service:13567 [place] OFFICE/OUTPATIENT ESTABLISHED MOD MDM 30 MIN Reason for Visit and Comments: Hypertension [210831] Follow up from [facility] ER [Other] Normal [facility] 36on 12-25-2024 36 3 attempts made to contact patient, unable to leave a message, patient has an appointment on 12/28/2024. [facility] 36on 12-20-[address]'s note from the E R, Labs and CT of the chest and Abd are in director paid media for you to review. Normal [facility] Urine Cultureon 12-18-2024 Bacteria identified Cx Nom (U) ORGANISM: Strep agalactiae - (group b) (O:STRAGA) [place] Count 15,000 * This is a corrected result. * A prior result that was reported as final has been changed. 15,000 colonies/ml Mixed Bacterial Skin Contaminants 1 Day removed from report on 12/20/24 PERFORMED BY: [place] [address] PATHOLOGIST LICENSED MENTAL HEALTH PROFESSIONAL JAMES COTA M.D. Normal [facility] Comment on above: Performed By: #### C UU #### [address] Patient Letter FTon 2024 Patient Letter [facility] Patient Letter [facility] December 13, 2024 CONSTANTINO CARDOSO [address] [place] [address] : 1970 Dear Constantino, This is a reminder that you are due for an appointment with [facility]. Please contact our office at [phone] to schedule an appointment at your earliest convenience. Thank you, [facility] Normal [facility] Lab Miscellaneous-LCon 11-14 Lab Miscellaneous COMMENT Invalid Interpretation Code [facility] Comment on above: Result Comment: Test Ordered: [id number] Venous Thromb. Patients on VKA Homocysteine 9.5 [...] developed and its performance characteristics determined by [employer] It has not been cleared or approved by the Food and Drug Administration. Factor VII Antigen 172 % UY Reference Range: 7 months and older: 60 - 175 Results of this test are for research purposes only per the assay die drawing checker. The performance characteristics of this assay have not been established. The result should not be used as a diagnostic procedure without confirmation of the diagnosis by another medically established diagnostic product or procedure. Protein C Ag/FVII Ag Ratio 0.7 ratio UY Reference Range: 0.5 - 2.2 Results of this test are for research purposes only per the assay die drawing checker. The performance characteristics of this assay have not been established. The result should not be used as a diagnostic procedure without confirmation of the diagnosis by another medically established diagnostic product or procedure. Protein S Ag/FVII Ag Ratio 0.5 ratio UY Reference Range: 0.5 - 2.2 Results of this test are for research purposes only per the assay die drawing checker. The performance characteristics of this assay have [...] and older: 22.9 - 30.2 APTT 1:1 MAINTENANCE OPERATOR NIY sec UY Testing Not Indicated This test was developed and its performance characteristics determined by [employer]. It has not been cleared or approved by the [place] Food and Drug Administration. APTT 1:1 Saline NIY sec UY Testing Not Indicated This test was developed and its performance characteristics determined by [employer]. It has not been cleared or approved by the [place] Food and Drug Administration. LAC Interpretation Comment UY A lupus anticoagulant is not detected. All antiphospholipid antibodies evaluated are normal. As antibody titers may fluctuate with time, repeat testing may be indicated. Please contact [facility] if further clarification is needed. DRVVT [...] <26 Factor II Gene Mutation Result Comment UGurpreet G-G (Normal-Normal) No prothrombin [id number] mutation present. Interpretation: Comment UY While the patient does not possess this risk factor, other thrombotic risk factors may be detected through systematic clinical laboratory analysis. Methodology: Comment UY Patient DNA was evaluated for the factor II gene mutation at n (more content not included)... Performed By: #### 1 [id number] #### [facility] [address] [place] [id number] EEGon 10-28-2024 EEG EEG This is a routine electroencephalogram performed on a 54-year-old female using standard 10/20 lead placement and a [employer] system. All data were obtained digitally and [...] recommended. Rush Padilla M.D. ca Dictated: 10/20/2024 [id number] Typed: 10/21/2024 Normal [facility] Comment on above: Result Comment: Elec tronically Signed By: Randy BAKER, Rush\.br\Date and Time Signed: 10/28/24 07:30 EST BMPon 10-20-2024 Anion gap [Moles/Vol] 9 mmol/L Normal 6-16 [facility] Comment on above: Performed By: #### 2 [id number] #### [facility] [address] [place] [address] Calcium [Mass/Vol] 8.4 mg/dL Low 8.9-11.1 [facility] Comment on above: Performed By: #### 2 [id number] #### [facility] [address] [place] [address] Chloride [Moles/Vol] 112 mmol/L High 101-111 [facility] Comment on above: Performed By: #### 2 [id number] #### [facility] [address] [place] [address] CO2 [Moles/Vol] 25 mmol/L Normal 21-31 [facility] Comment on above: Performed By: #### 2 [id number] #### [facility] [address] [place] [address] Creatinine [Mass/Vol] 0.6 mg/dL Normal 0.5-1.3 [facility] Comment on above: Performed By: #### 2 [id number] #### [facility] [address] [place] [address] Glucose [Mass/Vol] 107 mg/dL Normal 55-199 [facility] Comment on above: Performed By: #### 2 [id number] #### [facility] [address] [place] [address] Potassium [Moles/Vol] 4.1 mmol/L Normal 3.5-5.3 [facility] Comment on above: Performed By: #### 2 [id number] #### [facility] [address] [place] [address] Sodium [Moles/Vol] 142 mmol/L Normal 135-145 [facility] Comment on above: Performed By: #### 2 [id number] #### [facility] [address] [place] [address] Urea nitrogen [Mass/Vol] 23 mg/dL High 5-21 [facility] Comment on above: Performed By: #### 2 [id number] #### [facility] [address] [place] [address] Urea nitrogen/Creatinine [Mass ratio] 38 No Units High 10-20 [facility] Comment on above: Performed By: #### 2 [id number] #### [facility] [address] [place] [address] CBC w/ Auto Diffon 5 Basophils/100 WBC (Bld) 0.7 % Normal 0.0-2.0 [facility] Comment on above: Performed By: #### 2 [id number] #### [facility] [address] [place] [address] Basophils/Leukocytes Auto (Bld) [Pure # fraction] 0.0 E9/L Normal 0.0-0.2 [facility] Comment on above: Performed By: #### 2 [id number] #### [facility] [address] [place] [address] Eosinophils (Bld) [#/Vol] 0.2 E9/L Normal 0.0-0.5 [facility] Comment on above: Performed By: #### 2 [id number] #### [facility] [address] [place] [address] Eosinophils/100 WBC (Bld) 4.9 % Normal 0.0-8.0 [facility] Comment on above: Performed By: #### 2 553652 #### [facility] [address] [place] [address] Erythrocyte distribution width (RBC) [Ratio] 14.2 % Normal 10.9-14.2 [facility] Comment on above: Performed By: #### 2 [id number] #### [facility] [address] [place] [address] Hematocrit (Bld) [Volume fraction] 32.4 % Low 34.0-46.0 [facility] Comment on above: Performed By: #### 2 [id number] #### [facility] [address] [place] [address] Hemoglobin (Bld) [Mass/Vol] 11.0 g/dL Low 12.0-16.0 [facility] Comment on above: Performed By: #### 2 [id number] #### [facility] [address] [place] [address] Lymphocytes (Bld) [#/Vol] 1.5 E9/L Normal 1.0-4.0 [facility] Comment on above: Performed By: #### 2 [id number] #### [facility] [address] [place] [address] Lymphocytes/100 WBC (Bld) 32.6 % Normal 14.0-50.0 [facility] Comment on above: Performed By: #### 2 [id number] #### [facility] [address] [place] [address] MCH (RBC) [Entitic mass] 30.1 pg Normal 27.0-34.0 [facility] Comment on above: Performed By: #### 2 [id number] #### [facility] [address] [place] [address] MCHC (RBC) [Mass/Vol] 33.9 g/dL Normal 31.4-36.0 [facility] Comment on above: Performed By: #### 2 [id number] #### [facility] [address] [place] [address] MCV (RBC) [Entitic vol] 89.0 fL Normal 80.0-100.0 [facility] Comment on above: Performed By: #### 2 [id number] #### [facility] [address] [place] [address] Monocytes (Bld) [#/Vol] 0.4 E9/L Normal 0.2-1.0 [facility] Comment on above: Performed By: #### 2 [id number] #### [facility] [address] [place] [address] Neutrophils (Bld) [#/Vol] 2.5 E9/L Normal 2.0-7.5 [facility] Comment on above: Performed By: #### 2 [id number] #### [facility] [address] [place] [address] Neutrophils/100 WBC (Bld) 53.5 % Normal 36.0-75.0 [facility] Comment on above: Performed By: #### 2 [id number] #### [facility] [address] [place] [address] Platelet 385.0 E9/L Normal 150.0-500.0 [facility] Comment on above: Performed By: #### 2 [id number] #### [facility] [address] [place] [address] Platelet mean volume (Bld) [Entitic vol] 7.1 fL Normal 6.4-10.8 [facility] Comment on above: Performed By: #### 2 [id number] #### [facility] [address] [place] [address] RBC (Bld) [#/Vol] 3.6 E12/L Low 4.3-5.9 [facility] Comment on above: Performed By: #### 2 [id number] #### [facility] [address] [place] [address] WBC corrected for nucl RBC Auto (Bld) [#/Vol] 4.6 E9/L Normal 4.0-11.0 [facility] Comment on above: Performed By: #### 2 [id number] #### [facility] [address] [place] [address] CHEMISTRYOrdered By: Lab ROP User on 10-20-2024 Glucose [Mass/Vol] 115 mg/dL High 55 - 99 mg/dL [facility] POC Subsection Comment on above: Result Comment: Noti fied RN/MD POC Username ARTUROGILMARALMA Invalid Interpretation Code [facility] POC Subsection Sodium [Moles/Vol] [id number] mmol/L Invalid Interpretation Code [facility] POC Subsection Sodium [Moles/Vol] [id number] mmol/L Invalid Interpretation Code [facility] POC Subsection Glucose [Mass/Vol] 93 mg/dL Normal 55 - 99 mg/dL [facility] POC Subsection Comment on above: Result Comment: Noti melchor VARGAS POC Username ALMA MORRIS Invalid Interpretation Code [facility] POC Subsection Sodium [Moles/Vol] [id number] mmol/L Invalid Interpretation Code [facility] POC Subsection Sodium [Moles/Vol] [id number] mmol/L Invalid Interpretation Code [facility] POC Subsection CHEMISTRYOrdered By: SYSTEM SYSTEM on [...] 10-06 Glucose [Mass/Vol] 115 mg/dL High 55-99 [facility] Comment on above: Result Comment: Paul roche RN/ Performed By: #### 2 [id number] ####[facility] [address] [place] [address] Glucose [Mass/Vol] 93 mg/dL Normal 55-99 [facility] Comment on above: Result Comment: Paul VARGAS Performed By: #### 2 [id number] #### [facility] [address] [place] [address] Discharge Note-Nursingon Discharge Note-Nursing Discharge Note-Nursing ARIELLE CARDOSOCHRIS Hairston :1970 Visit Date:10/19/2024 Inpatient Discharge Instructions Your [...] 2 days Where: [address] [place] [address]- [phone] Business (1) Follow Up with Randy BAKER, REGINALDO Baker When: Within 2 to 4 weeks Where: [facility] [address] [place] [address]- Medications What How Much When Why Instructions Next Dose New aspirin (aspirin 81 mg Oral EC Tab) 1 Tablets By Mouth Every day Pickup at [facility]/pharmacy #6177 10/21/24 9am New cyanocobalamin (cyanocobalamin 1000 mcg Tab) 1 Tablets By Mouth Every day Pickup at [facility]/pharmacy #6177 10/21/24 9am New levetiracetam (Keppra 500 mg Tab) 1 Tablets By Mouth 2 times a day Pickup at [facility]/pharmacy #6177 10/20/24 9pm New multivitamin (Multi Vitamins oral tablet) 1 Tablets By Mouth [facility] 10/21/24 9am Changed ergocalciferol (ergocalciferol 50,000 intl units Cap) 1 Capsules By Mouth Every 7 days Duration: 7 Weeks [facility] 10/27/24 9am Unchanged acarbose (acarbose 25 [...] Mouth Every day 10/21/24 9am [facility] [address], [place] [id number] [phone] What How Much When Why Comments Stop [...] Low (10/20/24 (more content not included)... Normal [facility] HEMATOLOGYOrdered By: SYSTEM SYSTEM on 10-20-2024 Basophils/100 [...] 10-20-2024 Inpatient Clinical Summary Inpatient Clinical Summary [address] [address] Clinical Summary Person Information: Name: CONSTANTINO CARDOSO Age: 54 Years : 1970 Sex: Female PCP: JUDI YOUSSEF CNP Marital Status: Phone: [phone] Race: White Ethnicity: Non- or Language: [place] MRN: Visit Id: Visit Reason: Facial droop; Headache; Potential stroke; POSS STROKE Speciality: Acuity: Enc Type: Observation Med Service: Medical Arrival: 10/19/2024 17:04:11 Discharge: Dispo Type: Admitted as IP to this Hosp Address: [facility] [id number] Provider Notes: Diagnosis: 1:Stroke-like symptoms; 2:Migraine headache; [...] Follow up: With: Address: When: JUDI YOUSSEF [facility] [place] [id number] [phone] Business (1) Within 1 to 2 days With: Address: When: Rush Padilla MD, [place] [address] [address] [place] [phone] Within 2 to 4 weeks Patient Education Information: Seizure, Adult, Fhma-rt-Fibl; Vitamin B12 Deficiency, Owqu-er-Ptzd; Vitamin D Deficiency, Sjsg-ie-Fiot; Vitamin D Test; Migraine Headache, Bxmr-dp-Wdhr aspirin 81 mg Oral EC Tab, cyanocobalamin, ergocalciferol 50,000 intl units Cap, multivitamin Normal [facility] Inpatient Clinical Summary Inpatient Clinical Summary [address] [address] Clinical Summary Person Information: Name: CONSTANTINO CARDOSO Age: 54 Years : 1970 Sex: Female PCP: JUDI YOUSSEF CNP Marital Status: Phone: [phone] Race: White Ethnicity: Non- or Language: [place] Visit Id: Visit Reason: Facial droop; Headache; Potential stroke; POSS STROKE Speciality: Acuity: Enc Type: Observation Med Service: Medical Arrival: 10/19/2024 17:04:11 Discharge: Dispo Type: Admitted as IP to this Hosp Address: [facility] [id number] Provider Notes: Diagnosis: 1:Stroke-like symptoms; 2:Migraine headache; [...] Follow up: With: Address: When: JUDI YOUSSEF [address] [place] [address] [phone] [facility] (1) Within 1 to 2 days With: Address: When: Rush Padilla MD [place] [phone] Within 2 to 4 weeks Patient Education Information: Vitamin B12 Deficiency, Roaw-ld-Igsp; Vitamin D Deficiency, Snsl-sv-Gkfi; Vitamin D Test; Migraine Headache, Jcrn-al-Wigc aspirin 81 mg Oral EC Tab, cyanocobalamin, ergocalciferol 50,000 intl units Cap, multivitamin Normal [facility] Inpatient Patient Summaryon 10-20-2024 Inpatient Patient Summary Inpatient Patient Summary [place] [id number] Patient Discharge Instructions PERSON INFORMATION Name: CONSTANTINO CARDOSO Date of : 1970 Current Date: 10/20/2024 15:59:27 PHYSICIANS Admitting Physician: Eliezer Lorenzo DO Primary Care Physician: JUDI YOUSSEF CNP PCP Phone Number: [phone] Comment: Discharge Diagnosis: 1:Stroke-like symptoms; 2:Migraine headache; [...] With: Address: When: JUDI YOUSSEF [address] [place] [phone] Business (1) Within 1 to 2 days With: Address: When: Randy BAKER, REGINALDO Baker [place] [phone] Within 2 to 4 weeks In the event that this physician does not participate in your insurance network, please consult with your insurance company to find a nearby participating provider. Comment: MAURY Wong COLLEENIA R, have received the attached patient education materials/instructions and have verbalized understanding: Patient Signature ____ Date Clinican/Nurse Signature Date HERE ARE THE MEDICATION CHANGES THAT OCCURRED DURING YOUR HOSPITAL STAY New Medications [facility]/pharmacy #6177, [address], [place] [id number], [phone] aspirin (aspirin 81 mg Oral EC Tab) [...] Medications to Continue Taking That Have Changed [facility]/pharmacy #6177, [address], [place] [phone], [phone] START: ergocalciferol (ergocalciferol 50,000 intl units Cap) [...] oral tablet) (more content not included)... Normal [facility] Inpatient Patient Summary Inpatient Patient Summary [address] [address] Patient Discharge Instructions PERSON INFORMATION Name: CONSTANTINO CARDOSO Date of : 1970 Current Date: 10/20/2024 11:40:03 PHYSICIANS Admitting Physician: Eliezer Lorenzo DO Primary Care Physician: JUDI YOUSSEF CNP PCP Phone Number: [phone] Comment: Discharge Diagnosis: 1:Stroke-like symptoms; 2:Migraine headache; [...] JUDI YOUSSEF [address] [place] [place] [phone] Business (1) Within 1 to 2 days With: Address: When: Randy BAKER, REGINALDO Baker [place] [address] [place] [address] Within 2 to 4 weeks In the event that this physician does not participate in your insurance network, please consult with your insurance company to find a nearby participating provider. Comment: MAURY Wong COLLEENIA R, have received the attached patient education materials/instructions and have verbalized understanding: Patient Signature ____ Date Clinican/Nurse Signature Date HERE ARE THE MEDICATION CHANGES THAT OCCURRED DURING YOUR HOSPITAL STAY New Medications [facility]/pharmacy #6177, [address], [place] [id number], [phone] aspirin (aspirin 81 mg Oral EC Tab) 1 Tablets By Mouth every day. Refills: 0. Last Dose: Next Dose: cyanocobalamin (cyanocobalamin 1000 mcg Tab) 1 Tablets By Mouth every day. Refills: 0. Last Dose: Next Dose: multivitamin (Multi Vitamins oral tablet) 1 Tablets By Mouth every day. Refills: 0. Last Dose: Next Dose: Medications to Continue Taking That Have Changed [facility]/pharmacy #6177, [address], [place] [phone], [phone] START: ergocalciferol (ergocalciferol 50,000 intl units Cap) [...] cyanocobalamin (cyanocobalamin (more content not included)... Normal [facility] Interdisciplinary Note - Issa n 10-20-2024 Interdisciplinary Note - OT Interdisciplinary Note - OT OT eval completed. [facility] score . Pt is completing ADL tasks and mobility in room at MOD I without AD, increased time due to soreness in R ankle from previous slip on ice. No skilled OT needs at this time. Normal [facility] Lipid Panelon 10-20-2024 Cholesterol [Mass/Vol] 179 mg/dL Normal 120-200 [facility] Comment on above: Performed By: #### 2 [id number] #### [facility] [address] [place] [address] Cholesterol in HDL [Mass/Vol] 52 mg/dL Invalid Interpretation Code [facility] Comment on above: Result Comment: '>= 60 LOW RISK' '<= 40 HIGH RISK' Performed By: #### 2 [id number] #### [facility] [address] [place] [address] Cholesterol in LDL [Mass/Vol] 105 mg/dL Normal <=129 [facility] Comment on above: Performed By: #### 2 [id number] #### [facility] [address] [place] [address] Cholesterol in VLDL [Mass/Vol] 25 mg/dL Normal 7-40 [facility] Comment on above: Performed By: #### 2 [id number] #### [facility] [address] [place] [address] Triglyceride [Mass/Vol] 127 mg/dL Normal <=149 [facility] Comment on above: Performed By: #### 2 [id number] #### [facility] [address] [place] [address] MRA Head w/o Contraston 10-06 MRA Head w/o Contrast Exam Date/Time: 10/19/2024 22:35 EST Reason for Exam: CVA Report IMPRESSION: PROBABLY NEGATIVE HEAD MRA, NOTED. EXAM: MRA Head w/o Contrast DATE: 10/19/2024 7:13 PM CLINICAL HISTORY: CVA. COMPARISON: Head MRI/MRA 10/19/2024. TECHNIQUE: Three-dimensional npvl-gm-hlsttp MRA of the intracranial arterial circulation was [...] MD Transcribed by: REZA Technologist: ANDRA Valentin [facility] MRA Neck w/o Contraston 10-06 MRA Neck w/o Contrast Exam Date/Time: 10/19/2024 22:35 EST Reason for Exam: CVA Report IMPRESSION: NEGATIVE NECK MRA. EXAM: MRA Neck w/o Contrast DATE: 10/19/2024 7:13 PM CLINICAL HISTORY: CVA. Technologist Comments: rt side facial droop, slurred speech, headache; symptoms have resolved currently; r/o stroke; no known injury/head trauma COMPARISON: Head MRI/MRA 10/19/2024. TECHNIQUE: 2D and 3D edzh-xz-okrcru MRA of the neck arterial circulation was [...] MD Transcribed by: REZA Technologist: ANDRA Valentin [facility] MRI Brain w/o Contraston MRI Brain w/o [...] MD Transcribed by: REZA Technologist: ANDRA Valentin [facility] U Drug Screenon 10-20-2024 Amphetamines Screen method >1000 ng/mL Ql (U) Negative Normal NEGATIVE [facility] Comment on above: Result Comment: Nega tive Cutoff: <1000 ng/mL Performed By: #### 2 [id number] #### [facility] [address] [place] [address] Barbiturates Screen Ql (U) Negative Normal NEGATIVE [facility] Comment on above: Result Comment: Nega tive Cutoff: <200 ng/mL Performed By: #### 2 [id number] #### [facility] [address] [place] [address] Benzodiazepines Ql (U) Negative Normal NEGATIVE [facility] Comment on above: Result Comment: Nega tive Cutoff: <200 ng/mL Performed By: #### 2 [id number] #### [facility] [address] [place] [address] Cannabinoids Screen Ql (U) Negative Normal NEGATIVE [facility] Comment on above: Result Comment: Nega tive Cutoff: <50 ng/mL Performed By: #### 2 [id number] #### [facility] [address] [place] [address] Cocaine Ql (U) Negative Normal NEGATIVE [facility] Comment on above: Result Comment: Nega tive Cutoff: <300 ng/mL Performed By: #### 2 [id number] #### [facility] [address] [place] [address] Opiates Screen Ql (U) Negative Normal NEGATIVE [facility] Comment on above: Result Comment: Nega tive Cutoff: <300 ng/mL Performed By: #### 2 [id number] #### [facility] [address] [place] [address] Phencyclidine Screen method >25 ng/mL Ql (U) Negative Normal NEGATIVE [facility] Comment on above: Result Comment: Nega tive Cutoff: <25 ng/mL These drug screen results are to be used for medical (i.e., treatment) purposes only. Unconfirmed drug screening results must not be used for non-medical purposes (e.g., employment testing, legal testing). Performed By: #### 2 [id number] #### [facility] [address] [place] [address] U Fentanyl Negative Normal NEGATIVE [facility] Comment on above: Result Comment: Nega tive Cutoff: <5 ng/mL These drug screen results are to be used for medical (i.e., treatment) purposes only. Unconfirmed drug screening results must not be used for non-medical purposes (e.g., employment testing, legal testing). Performed By: #### 2 [id number] #### [facility] [address] [place] [address] UA with Cult Rflxon 10-20-19 25 Bilirubin Ql (U) Negative Normal Negative [facility] Comment on above: Performed By: #### 4 [id number] #### [facility] [address] [place] [address] Clarity (U) Clear Normal Clear [facility] Comment on above: Performed By: #### 4 [id number] #### [facility] [address] [place] [address] Color (U) Yellow Normal Yellow [facility] Comment on above: Result Comment: Micr oscopic readings are only performed on those samples that meet specific criteria set forth by [facility]. Performed By: #### 4 [id number] #### [facility] [address] [place] [address] Glucose Ql (U) Negative Normal Negative [facility] Comment on above: Performed By: #### 4 [id number] #### [facility] [address] [place] [address] Hemoglobin Auto test strip (U) [Mass/Vol] Negative Normal Negative [facility] Comment on above: Performed By: #### 4 [id number] #### [facility] [address] [place] [address] Ketones Auto test strip Ql (U) Negative Normal Negative [facility] Comment on above: Performed By: #### 4 [id number] #### [facility] [address] [place] [address] Leukocyte esterase Auto test strip Ql (U) Negative Normal Negative [facility] Comment on above: Performed By: #### 4 [id number] #### [facility] [address] [place] [address] Nitrite Auto test strip Ql (U) Negative Normal Negative [facility] Comment on above: Performed By: #### 4 [id number] #### [facility] [address] [place] [address] pH (U) 5.5 [pH] Normal 5.0-9.0 [facility] Comment on above: Performed By: #### 4 [id number] #### [facility] [address] [place] [address] Protein Ql (U) Negative Normal Negative [facility] Comment on above: Performed By: #### 4 [id number] #### [facility] [address] [place] [address] Specific gravity (U) [Rel density] 1.028 Normal 1.005-1.030 [facility] Comment on above: Performed By: #### 4 [id number] #### [facility] [address] [place] [address] Urobilinogen (U) [Mass/Vol] Negative Normal Negative [facility] Comment on above: Performed By: #### 4 [id number] #### [facility] [address] [place] [address] Epithelial cells.squamous Auto (Urine sed) [#/Area] 0-2 Invalid Interpretation Code [facility] Comment on above: Performed By: #### 4 [id number] #### [facility] [address] [place] [address] Mucus Auto Ql (U) 1+ CD:[id number] Abnormal Negative [facility] Comment on above: Performed By: #### 4 [id number] #### [facility] [address] [place] [address] RBC Ql (U) 0-3 Normal 0-3 [facility] Comment on above: Performed By: #### 4 [id number] #### [facility] [address] [place] [address] WBC Auto (Urine sed) [#/Area] 0-5 Normal 0-5 [facility] Comment on above: Performed By: #### 4 [id number] #### [facility] [address] [place] [address] URINALYSISOrdered By: Maddison Acosta on 10-20-2024 Bilirubin Ql (U) Negative Normal Negativemg/ dL FT UA Auto SS Clarity (U) Clear (10/20/24 12:51 AM) Normal Clear [facility] UA Auto SS Color (U) Yellow 3 (10/20/24 12:51 AM) Normal Yellow [facility] UA Auto SS Comment on above: Interpretive Data: M icroscopic readings are only performed on those samples that meet specific criteria set forth by [facility]. Glucose Ql (U) Negative Normal Negativemg/ [...] sed) [#/Area] 0-2 graded/HPF Invalid Interpretation Code [facility] UA Auto SS Mucus Auto Ql (U) 1+ graded/LPF Invalid Interpretation Code Negativegra ded/LPF [facility] UA Auto SS RBC Ql (U) 0-3 graded/HPF Normal 0-3graded/H PF [facility] UA Auto SS WBC Auto (Urine sed) [#/Area] 0-5 graded/HPF Normal 0-5graded/H PF [facility] UA Auto SS URINALYSISOrdered By: Guerline BEAN on 10-20-2024 UA Spec Desc Clean Catch (10/20/24 12:51 AM) Normal [facility] UA Auto SS Vitamin D 25 Hydroxyon 10-20 25-hydroxyvitamin D3 [Mass/Vol] 12.7 ng/mL Low 30.0-100.0 [facility] Comment on above: Performed By: #### 5 [id number] #### [facility] [address] [place] [address] eGFRon 10-20-2024 eGFR 106 mL/min/1.73 m2 Normal >=59 [facility] Comment on above: Performed By: #### 1 [id number] #### [facility] [address] [place] [address] BB Draw & Holdon 10-19-2024 BB D&H Sample drawn for Blood Ba Normal [facility] Comment on above: Performed By: #### 1 [id number] #### [facility] [address] [place] [address] CBC w/ Auto Diffon 5 RBC size Nom (Bld) NORMAL Invalid Interpretation Code [facility] Comment on above: Performed By: #### 2 [id number] #### [facility] [address] [place] [address] Basophils/100 WBC (Bld) 0.6 % Normal 0.0-2.0 [facility] Comment on above: Performed By: #### 2 [id number] #### [facility] [address] [place] [address] Basophils/Leukocytes Auto (Bld) [Pure # fraction] 0.0 E9/L Normal 0.0-0.2 [facility] Comment on above: Performed By: #### 2 [id number] #### [facility] [address] [place] [address] Eosinophils (Bld) [#/Vol] 0.2 E9/L Normal 0.0-0.5 [facility] Comment on above: Performed By: #### 2 [id number] #### [facility] [address] [place] [address] Eosinophils/100 WBC (Bld) 3.9 % Normal 0.0-8.0 [facility] Comment on above: Performed By: #### 2 [id number] #### [facility] [address] [place] [address] Erythrocyte distribution width (RBC) [Ratio] 14.1 % Normal 10.9-14.2 [facility] Comment on above: Performed By: #### 2 [id number] #### [facility] [address] [place] [address] Hematocrit (Bld) [Volume fraction] 34.6 % Normal 34.0-46.0 [facility] Comment on above: Performed By: #### 2 [id number] #### [facility] [address] [place] [address] Hemoglobin (Bld) [Mass/Vol] 11.9 g/dL Low 12.0-16.0 [facility] Comment on above: Performed By: #### 2 642153 #### [facility] [address] [place] [address] Lymphocytes (Bld) [#/Vol] 1.8 E9/L Normal 1.0-4.0 [facility] Comment on above: Performed By: #### 2 175777 #### [facility] [address] [place] [address] Lymphocytes/100 WBC (Bld) 33.3 % Normal 14.0-50.0 [facility] Comment on above: Performed By: #### 2 [id number] #### [facility] [address] [place] [address] MCH (RBC) [Entitic mass] 30.6 pg Normal 27.0-34.0 [facility] Comment on above: Performed By: #### 2 [id number] #### [facility] [address] [place] [address] MCHC (RBC) [Mass/Vol] 34.2 g/dL Normal 31.4-36.0 [facility] Comment on above: Performed By: #### 2 559207 #### [facility] [address] [place] [address] MCV (RBC) [Entitic vol] 89.5 fL Normal 80.0-100.0 [facility] Comment on above: Performed By: #### 2 [id number] #### [facility] [address] [place] [address] Monocytes (Bld) [#/Vol] 0.4 E9/L Normal 0.2-1.0 [facility] Comment on above: Performed By: #### 2 364958 #### [facility] [address] [place] [address] Neutrophils (Bld) [#/Vol] 2.9 E9/L Normal 2.0-7.5 [facility] Comment on above: Performed By: #### 2 [id number] #### [facility] [address] [place] [address] Neutrophils/100 WBC (Bld) 55.0 % Normal 36.0-75.0 [facility] Comment on above: Performed By: #### 2 [id number] #### [facility] [address] [place] [address] Platelet mean volume (Bld) [Entitic vol] 7.2 fL Normal 6.4-10.8 [facility] Comment on above: Performed By: #### 2 397004 #### [facility] [address] [place] [address] Platelets (Bld) [#/Vol] 424.0 E9/L Normal 150.0-500.0 [facility] Comment on above: Performed By: #### 2 [id number] #### [facility] [address] [place] [address] RBC (Bld) [#/Vol] 3.9 E12/L Low 4.3-5.9 [facility] Comment on above: Performed By: #### 2 [id number] #### [facility] [address] [place] [address] WBC corrected for nucl RBC Auto (Bld) [#/Vol] 5.4 E9/L Normal 4.0-11.0 [facility] Comment on above: Performed By: #### 2 535906 #### [facility] [address] [place] [address] CHEMISTRYOrdered By: Lab ROP User on 10-19-2024 Glucose [Mass/Vol] 93 mg/dL Normal 55 - 99 mg/dL [facility] POC Subsection Comment on above: Result Comment: Paul roche RN/ POC Username STEVIE BELLA Invalid Interpretation Code [facility] POC Subsection Sodium [Moles/Vol] [id number] mmol/L Invalid Interpretation Code [facility] POC Subsection Sodium [Moles/Vol] [id number] mmol/L Invalid Interpretation Code [facility] POC Subsection CHEMISTRYOrdered By: SYSTEM SYSTEM on [...] (Bld) [Mass fraction] 5.7 % Normal <=5.9% [facility] ChemAutoSS CMPon 10-19-2024 Albumin [Mass/Vol] 3.9 g/dL Normal 3.3-5.0 [facility] Comment on above: Performed By: #### 2 [id number] #### [facility] [address] [place] [address] Albumin/Globulin (S) [Mass conc ratio] 1.6 Normal 1.1-2.2 [facility] Comment on above: Performed By: #### 2 [id number] #### [facility] [address] [place] [address] ALP [Catalytic activity/Vol] 120 Int._Unit/L High 21- [facility] Comment on above: Performed By: #### 2 [id number] #### [facility] [address] [place] [address] ALT No additional P-5'-P [Catalytic activity/Vol] 11 Int._Unit/L Normal 6-46 [facility] Comment on above: Performed By: #### 2 [id number] #### [facility] [address] [place] [address] Anion gap [Moles/Vol] 9 mmol/L Normal 6-16 [facility] Comment on above: Performed By: #### 2 [id number] #### [facility] [address] [place] [address] AST [Catalytic activity/Vol] 14 Int._Unit/L Normal 5-43 [facility] Comment on above: Performed By: #### 2 [id number] #### [facility] [address] [place] [address] Bilirubin [Mass/Vol] 0.4 mg/dL Normal 0.0-1.1 [facility] Comment on above: Performed By: #### 2 [id number] #### [facility] [address] [place] [address] Calcium [Mass/Vol] 8.9 mg/dL Normal 8.9-11.1 [facility] Comment on above: Performed By: #### 2 [id number] #### [facility] [address] [place] [address] Chloride [Moles/Vol] 110 mmol/L Normal 101-111 [facility] Comment on above: Performed By: #### 2 [id number] #### [facility] [address] [place] [address] CO2 [Moles/Vol] 24 mmol/L Normal 21-31 [facility] Comment on above: Performed By: #### 2 [id number] #### [facility] [address] [place] [address] Creatinine [Mass/Vol] 0.8 mg/dL Normal 0.5-1.3 [facility] Comment on above: Performed By: #### 2 [id number] #### [facility] [address] [place] [address] Globulin (S) [Mass/Vol] 2.4 g/dL Normal 1.4-4.0 [facility] Comment on above: Performed By: #### 2 [id number] #### [facility] [address] [place] [address] Glucose [Mass/Vol] 107 mg/dL Normal 55-199 [facility] Comment on above: Performed By: #### 2 [id number] #### [facility] [address] [place] [address] Potassium [Moles/Vol] 3.4 mmol/L Low 3.5-5.3 [facility] Comment on above: Performed By: #### 2 [id number] #### [facility] [address] [place] [address] Protein [Mass/Vol] 6.3 g/dL Normal 6.0-7.8 [facility] Comment on above: Performed By: #### 2 [id number] #### [facility] [address] [place] [address] Sodium [Moles/Vol] 140 mmol/L Normal 135-145 [facility] Comment on above: Performed By: #### 2 [id number] #### [facility] [address] [place] [address] Urea nitrogen [Mass/Vol] 22 mg/dL High 5-21 [facility] Comment on above: Performed By: #### 2 [id number] #### [facility] [address] [place] [address] Urea nitrogen/Creatinine [Mass ratio] 28 No Units High 10-20 [facility] Comment on above: Performed By: #### 2 [id number] #### [facility] [address] [place] [address] COAGULATIONOrdered By: Anabela Matute on 10-19-2024 aPTT Coag (PPP) [Time] 40.8 s High 25.1 - 36.5 second(s) [facility] Comment on above: Interpretive Data: [...] the same coagulation reagent and instrumentation as [facility]. Currently there are no coagulation studies available worldwide for children to 14 days, and no normal ranges. Heparin therapeutic range (represented by Anti-Factor Xa activity of 0.2 - 0.4 U/mL) corresponds to PTT of 56.6 - 109.0 sec. INR Coag (PPP) [Relative time] 0.96 {INR} Invalid Interpretation Code [facility] Comment on above: Interpretive Data: I NR results are specifically intended to assess patients stabilized on long-term Anticoagulation therapy suggested INR s Less Intensive Anticoagulation 2.0 3.0 Conventional Range 3.0 4.5 PT Coag (PPP) [Time] 10.7 s Normal 9.4 - 1 2.5 second(s) [facility] Comment on above: Interpretive Data: [...] the same coagulation reagent and instrumentation as [facility]. Currently there are no coagulation studies available [...] MD Transcribed by: REZA Technologist: CML Normal [facility] Capillary Glucose POCon 10-06 Glucose [Mass/Vol] 93 mg/dL Normal 55-99 [facility] Comment on above: Result Comment: Paul roche RN/ Performed By: #### 2 [id number] #### [facility] [address] [place] [address] ED Clinical Summaryon 2024 ED Clinical Summary ED Clinical Summary [address] [address] ED Clinical Summary Person Information Name: CONSTANTINO CARDOSO Roberto/[facility] Age: 54 Years : 1970 Sex: Female Language: [place] PCP: JUDI YOUSSEF CNP Marital Status: Phone: [phone] MRN: [id number] Visit Id: Visit Reason: Facial droop; Headache; Potential stroke; POSS STROKE Speciality: Acuity: 2 Enc Type: Observation Med Service: Medical Arrival: 10/19/2024 17:04:11 Discharge: LOS: 000 02:07 Checkin: 10/19/2024 17:04:11 Checkout: 10/19/2024 19:11:15 Dispo Type: Admitted as IP to this [facility] EVENTS: Event Name Event Status Request [...] 10/19/2024 19:11:15 10/19/2024 19:11:15 10/19/2024 19:11:15 ADDRESS: [address] [place] [id number] PHYS DOC NOTES: MEDICAL INFORMATION: Prescriptions Given: [...] 12:On deep vein (more content not included)... [facility] ED Note-Physicianon 10-19-19 25 ED Note-Physician ED Note-Physician Basic Information time [...] Not ta (more content not included)... Normal [facility] Comment on above: Result Comment: Elec tronically Signed By: Prosper Bergman DO\.br\Date and Time Signed: 10/19/24 18:09 EST ED Patient Education Noteon 10-19-2024 ED Patient Education Note ED Patient Education Note Normal [facility] ED Patient Summaryon 025 ED Patient Summary ED Patient Summary [place] [address] Patient Discharge Instructions Person Information Name: CONSTANTINO CARDOSO Age: 54 Years Arrival Date: 10/19/2024 17:04:11 Discharge Diagnosis: 1:Stroke-like symptoms; 2:Migraine headache; 3:Anemia; 4:Hypokalemia; 5:HTN (hypertension); 6:HLD (hyperlipidemia); 7:Gastroparesis; 8:Acid reflux; 9:Seizure; 10:Osteoarthritis; 11:Obesity due to excess calories; 12:On deep vein thrombosis (DVT) prophylaxis Primary Care Physician: JUDI YOUSSEF CNP Provider Information Primary Provider: Prosper Bergman DO Advanced Stock Blender:None The exam and treatment you received in the Emergency Department were for an urgent problem and are not intended as complete care. It is important that you follow up with a doctor, nurse practitioner, or physician???s furniture removalist's assistant for ongoing care. If your symptoms [...] opioids can be used to help relieve ljuvqpga-[id number] pain and are often prescribed following a [...] believe you (more content not included)... Normal [facility] Ethanolon 10-19-2024 Ethanol Lvl <10 Normal <=11 [facility] Comment on above: Performed By: #### 2 [id number] #### [facility] [address] [place] [address] Ferritinon 10-19-2024 Ferritin [Mass/Vol] 36 ng/mL Normal 11-307 [facility] Comment on above: Performed By: #### 2 [id number] #### [facility] [address] [place] [address] Folateon 10-19-2024 Folate [Mass/Vol] 20.7 ng/mL Normal >=6.7 [facility] Comment on above: Performed By: #### 2 [id number] #### [facility] [address] [place] [address] HEMATOLOGYOrdered By: SYSTEM SYSTEM on 10-19-2024 Basophils/100 [...] Normal 4.0 - 11.0 E9/L Remisol Heme [id number] 10-19-2024 HbA1c (Bld) [Mass fraction] 5.7 % Normal <=5.9 [facility] Comment on above: Performed By: #### 7 [id number] #### [facility] [address] [place] [address] Ironon 10-19-2024 Iron [Mass/Vol] 52 microgram/dL Normal 35-153 [facility] Comment on above: Performed By: #### 2 [id number] #### [facility] [address] [place] [address] LDHon 10-19-2024 LDH 186 Int._Unit/L Normal 93-218 [facility] Comment on above: Performed By: #### 2 [id number] #### [facility] [address] [place] [address] Lab Miscellaneous-LCon 10-19 Test Code 230550 Invalid Interpretation Code [facility] Comment on above: Performed By: #### 1 [id number] #### [facility] [address] [place] [address] Test Name Hypercoag Prof Invalid Interpretation Code [facility] Comment on above: Performed By: #### 1 [id number] #### [facility] [address] [place] [address] Magnesiumon 10-19-2024 Magnesium [Mass/Vol] 1.9 mg/dL Normal 1.3-2.4 [facility] Comment on above: Performed By: #### 2 [id number] #### [facility] [address] [place] [address] PT & PTTon 10-19-2024 aPTT Coag (PPP) [Time] 40.8 second(s) High 25.1-36.5 [facility] Comment on above: Result Comment: Para meter [...] the same coagulation reagent and instrumentation as [facility]. Currently there are no coagulation studies available worldwide for children to 14 days, and no normal ranges. Heparin therapeutic range (represented by Anti-Factor Xa activity of 0.2 - 0.4 U/mL) corresponds to PTT of 56.6 - 109.0 sec. Performed By: #### 1 [id number] #### [facility] [address] [place] [address] INR Coag (PPP) [Relative time] 0.96 {INR} Invalid Interpretation Code [facility] Comment on above: Result Comment: INR results are specifically intended to assess patients stabilized on long-term Anticoagulation therapy suggested INR???s ???Less Intensive Anticoagulation??? 2.0 ??? 3.0 Conventional Range 3.0 ??? 4.5 Performed By: #### 1 [id number] #### [facility] [address] [place] [address] PT Coag (PPP) [Time] 10.7 second(s) Normal 9.4-12.5 [facility] Comment on above: Result Comment: 15 d [...] the same coagulation reagent and instrumentation as [facility]. Currently there are no coagulation studies available worldwide for children to 14 days, and no normal ranges. Performed By: #### 1 [id number] #### [facility] [address] [place] [address] Pre-Arrival Noteon Pre-Arrival Note Pre-Arrival Note Pre-Arrival Summary Name: , zeems Current Date: 10/19/2024 17:08:25 EST Gender: Female Date of : Age: 50 Pre-Arrival Type: EMS ETA: 10/19/2024 17:20:00 EST Primary Care Physician: Presenting Problem: facial droop / slurred speech Pre-Arrival User: Stevie Bella Referring Source: Location: [place] Completion Date/Time: 10/19/2024 16:51:00 [facility] Emergency Department Pre-Hospital Report Form ____ Vital Signs: Pre-Hospital Report: Treatment in Route: Response to Treatment: Misc. Issues: Normal [facility] Reference Laboratory Testing Ordered By: Guerline BEAN on 10-19-2024 Sodium [Moles/Vol] 300596 mmol/L Invalid Interpretation Code [facility] SendOutsSS Test Name Hypercoag Prof Invalid Interpretation Code [facility] [employer]sSS Retic Counton 10-19-2024 Reticulocytes/100 RBC (Bld) 2.4 % High 0.5-2.2 [facility] Comment on above: Performed By: #### 2 [id number] #### [facility] [address] [place] [address] TIBC Calculatedon 10-19-2024 Iron binding capacity [Mass/Vol] 342 microgram/dL Normal 250-400 [facility] Comment on above: Performed By: #### 1 [id number] #### [facility] [address] [place] [address] Transferrin [Mass/Vol] 244 mg/dL Normal 200-370 [facility] Comment on above: Performed By: #### 1 [id number] #### [facility] [address] [place] [address] TSH With T4fr Reflexon 10-19 TSH Qn 1.53 m[IU]/L Normal 0.34-5.60 [facility] Comment on above: Performed By: #### 1 [id number] #### [facility] [address] [place] [address] Troponin 0 Hr.on 10-19-2024 Troponin HS 10.80 pg/mL Normal 10.10-27.10 [facility] Comment on above: Result Comment: The 95% CI (Confidence Interval) PPV (Positive Predictive Value) for myocardial infarction in females is 38 pg/mL, in males 51 pg/mL. The results should be used in conjunction with clinical conditions of myocardial infarction. (Access High Sensitivity Troponin I Instructions For Use, Guillermo E[place]ka, April 2018) Performed By: #### 1 [id number] #### [facility] [address] [place] [address] UA with Cult Rflxon 10-19-19 Type of Urine collection method Clean Catch Normal [facility] Comment on above: Performed By: #### 4 [id number] #### [facility] [address] [place] [address] Vit B12on 10-19-2024 Cobalamin (Vitamin B12) [Mass/Vol] 69 pg/mL Normal 50-1500 [facility] Comment on above: Performed By: #### 2 [id number] #### [facility] [address] [place] [address] XR Chest Single Viewon 10-19 XR Chest [...] MD Transcribed by: REZA Technologist: BRIELLE Valentin [facility] eGFRon 10-19-2024 eGFR 87 mL/min/1.73 m2 Normal >=59 [facility] Comment on above: Performed By: #### 1 [id number] #### [facility] [address] [place] [address] Office Visiton 09-17-2024 Follow-up visit [id number] Arielle Cardoso 1970 F Date Provider Department Center 09/17/2024 [id number] K[facility]ID [facility] Family History Problem Relation Age of Onset Heart attack Father Family Status - Relation Status Age at Father Level of Service:21981 [place] OFFICE/OUTPATIENT ESTABLISHED MOD MDM 30 MIN Reason for Visit and Comments: Palpitations [910574] - Occurring no more than usual for her she says. Valve Disorder [3372] - Denies chest pain and SOB. Hypertension [317375] Fatigue [46] - C/o fatigue and no energy . Normal [facility] Basic Metab w/rfx MGon 08-30 Anion gap [Moles/Vol] 11 mmol/L Normal 9-16 [facility] Comment on above: Performed By: #### P HO, BMPX, MG, CDP #### [facility] [address] [place] [address] Digital Content Specialist: Josef Rivera MD Calcium [Mass/Vol] 9.4 mg/dL Normal 8.6-10.4 [facility] Comment on above: Performed By: #### P HO, BMPX, MG, CDP #### [facility] [address] [place] [address] Digital Content Specialist: Josef Rivera MD Chloride [Moles/Vol] 105 mmol/L Normal 98-107 [facility] Comment on above: Performed By: #### P HO, BMPX, MG, CDP #### [facility] [address] [place] [address] Digital Content Specialist: Josef Rivera MD CO2 [Moles/Vol] 24 mmol/L Normal 20-31 [facility] Comment on above: Performed By: #### P HO, BMPX, MG, CDP #### [facility] [address] [place] [address] Digital Content Specialist: Josef Rivera MD Creatinine [Mass/Vol] 0.8 mg/dL Normal 0.6-0.9 [facility] Comment on above: Performed By: #### P HO, BMPX, MG, CDP #### [facility] [address] [place] [address] Digital Content Specialist: Josef Rivera MD GFR/1.73 sq M.predicted among non-blacks MDRD (S/P/Bld) [Vol rate/Area] 88 mL/min/{1.73_m2} Normal >60 [facility] Comment on above: Result Comment: These results [...] HO, BMPX, MG, CDP #### [facility] [address] [place] [address] Digital Content Specialist: Josef Rivera MD Glucose [Mass/Vol] 107 mg/dL High 74-99 [facility] Comment on above: Performed By: #### P HO, BMPX, MG, CDP #### [facility] [address] [place] [address] Digital Content Specialist: Josef Rivera MD Potassium [Moles/Vol] 3.8 mmol/L Normal 3.7-5.3 [facility] Comment on above: Performed By: #### P HO, BMPX, MG, CDP #### [facility] [address] [place] [address] Digital Content Specialist: Josef Rivera MD Sodium [Moles/Vol] 140 mmol/L Normal 136-145 [facility] Comment on above: Performed By: #### P HO, BMPX, MG, CDP #### [facility] [address] [place] [phone] Digital Content Specialist: Josef Rivera MD Urea nitrogen [Mass/Vol] 5 mg/dL Low 6-20 [facility] Comment on above: Performed By: #### P HO, BMPX, MG, CDP #### [facility] [address] [place] [address] Digital Content Specialist: Josef Rivera MD Basic Metabolic Panel w/ Ref galen to MGon 08-30-2024 Anion gap [Moles/Vol] 11 mmol/L 9 - 16 mmol/L [facility] Calcium [Mass/Vol] 9.4 mg/dL 8.6 - 10. 4 mg/dL [facility] Chloride [Moles/Vol] 105 mmol/L 98 - 10 7 mmol/L [facility] CO2 [Moles/Vol] 24 mmol/L 20 - 31 mmol/L [facility] Creatinine [Mass/Vol] 0.8 mg/dL 0.6 - 0.9 mg/dL [facility] Est, Glom Filt Rate 88 - PINF [facility] Comment on above: These results are [...] High 74 - 99 mg/dL [facility] Interpretation and review of laboratory results Abnormal [facility] Potassium [Moles/Vol] 3.8 mmol/L 3.7 - 5.3 mmol/L [facility] Sodium [Moles/Vol] 140 mmol/L 136 - 145 mmol/L [facility] Urea nitrogen [Mass/Vol] 5 mg/dL Low 6 - 20 mg/dL [facility] CBC with Auto Differentialon 08-30-2024 Basophils (Bld) [#/Vol] 0.03 10*3/uL [facility] Basophils/100 WBC (Bld) 1 % 0 - 2 % [facility] Eosinophils (Bld) [#/Vol] 0.27 10*3/uL [facility] Eosinophils/100 WBC (Bld) 5 % High 1 - 4 % [facility] Erythrocyte distribution width (RBC) [Ratio] 12.7 % 11.8 - 14.4 % [facility] Hematocrit (Bld) [Volume fraction] 37.4 % 36.3 - 47.1 % [facility] Hemoglobin (Bld) [Mass/Vol] 11.5 g/dL Low 11.9 - 15.1 g/dL [facility] Immature granulocytes (Bld) [#/Vol] [facility] Immature granulocytes/100 WBC (Bld) 0 % 0 [facility] Interpretation and review of laboratory results Abnormal [facility] Lymphocytes/100 WBC (Bld) 25 % 24 - 43 % [facility] Lymphocytes/100 WBC (Bld) 1.35 % [facility] MCH (RBC) [Entitic mass] 28.8 pg 25.2 - 33.5 pg [facility] MCHC (RBC) [Mass/Vol] 30.7 g/dL 28.4 - 34.8 g/dL [facility] MCV (RBC) [Entitic vol] 93.5 fL 82.6 - 102.9 fL [facility] Monocytes/100 WBC (Bld) 9 % 3 - 12 % [facility] Monocytes/100 WBC (Bld) 0.46 % [facility] Neutrophils/100 WBC (Bld) 60 % 36 - 65 % [facility] Nucleated RBC/100 WBC (Bld) [Ratio] 0.0 % 0.0 per 100 WBC [facility] Platelet mean volume (Bld) [Entitic vol] 9.1 fL 8.1 - 13.5 fL [facility] Platelets (Bld) [#/Vol] 321 10*3/uL [facility] RBC (Bld) [#/Vol] 4.00 10*6/uL 3.95 - 5.1 1 m/uL [facility] Segmented neutrophils/100 WBC (Bld) 3.27 % [facility] WBC other (Bld) [#/Vol] 5.4 [facility] CBC with Diffon 08-30-2024 Abs. Basophil 0.03 k/uL Normal 0.00-0.20 [facility] Comment on above: Performed By: #### P HO, BMPX, MG, CDP #### [employer] [address] [place] [address] Digital Content Specialist: Josef Rivera MD Abs.Imm.Granulocyte <0.03 Normal 0.00-0.30 [facility] Comment on above: Performed By: #### P HO, BMPX, MG, CDP #### [employer] [employer] [address] [place] [address] Digital Content Specialist: Josef Rivera MD Abs.Neutrophil (Seg) 3.27 k/uL Normal 1.50-8.10 [facility] Comment on above: Performed By: #### P HO, BMPX, MG, CDP #### [employer] [address] [place] [address] Digital Content Specialist: Josef Rivera MD Basophils/100 WBC (Bld) 1 % Normal 0-2 [facility] Comment on above: Performed By: #### P HO, BMPX, MG, CDP #### [facility] [address] [place] [address] Digital Content Specialist: Josef Rivera MD Eosinophils (Bld) [#/Vol] 0.27 10*3/uL Normal 0.00-0.44 [facility] Comment on above: Performed By: #### P HO, BMPX, MG, CDP #### [facility] [address] [place] [address] Digital Content Specialist: Josef Rivera MD Eosinophils/100 WBC (Bld) 5 % High 1-4 [facility] Comment on above: Performed By: #### P HO, BMPX, MG, CDP #### [facility] [address] [place] [address] Digital Content Specialist: Josef Rivera MD Erythrocyte distribution width (RBC) [Ratio] 12.7 % Normal 11.8-14.4 [facility] Comment on above: Performed By: #### P HO, BMPX, MG, CDP #### [facility] [address] [place] [address] Digital Content Specialist: Josef Rivera MD Hematocrit (Bld) [Volume fraction] 37.4 % Normal 36.3-47.1 [facility] Comment on above: Performed By: #### P HO, BMPX, MG, CDP #### [facility] [address] [place] [address] Digital Content Specialist: Josef Rivera MD Hemoglobin (Bld) [Mass/Vol] 11.5 g/dL Low 11.9-15.1 [facility] Comment on above: Performed By: #### P HO, BMPX, MG, CDP #### [facility] [address] [place] [address] Digital Content Specialist: Josef Rivera MD Immature granulocytes/100 WBC (Bld) 0 % Normal 0 [facility] Comment on above: Performed By: #### P HO, BMPX, MG, CDP #### [facility] [address] [place] [address] Digital Content Specialist: Josef Rivera MD Lymphocytes (Bld) [#/Vol] 1.35 10*3/uL Normal 1.10-3.70 [facility] Comment on above: Performed By: #### P HO, BMPX, MG, CDP #### [facility] [address] [place] [address] Digital Content Specialist: Josef Rivera MD Lymphocytes/100 WBC (Bld) 25 % Normal 24-43 [facility] Comment on above: Performed By: #### P HO, BMPX, MG, CDP #### [facility] [address] [place] [address] Digital Content Specialist: Josef Rivera MD MCH (RBC) [Entitic mass] 28.8 pg Normal 25.2-33.5 [facility] Comment on above: Performed By: #### P HO, BMPX, MG, CDP #### [facility] [address] [place] [address] Digital Content Specialist: Josef Rivera MD MCHC (RBC) [Mass/Vol] 30.7 g/dL Normal 28.4-34.8 [facility] Comment on above: Performed By: #### P HO, BMPX, MG, CDP #### [facility] [address] [place] [address] Digital Content Specialist: Josef Rivera MD MCV (RBC) [Entitic vol] 93.5 fL Normal 82.6-102.9 [facility] Comment on above: Performed By: #### P HO, BMPX, MG, CDP #### [facility] [address] [place] [address] Digital Content Specialist: Josef Rivera MD Monocytes (Bld) [#/Vol] 0.46 10*3/uL Normal 0.10-1.20 [facility] Comment on above: Performed By: #### P HO, BMPX, MG, CDP #### [address] [address] Digital Content Specialist: Josef Rivera MD Monocytes/100 WBC (Bld) 9 % Normal 3-12 [facility] Comment on above: Performed By: #### P HO, BMPX, MG, CDP #### [address] [address] [address] Digital Content Specialist: Josef Rivera MD Neutrophil (Seg) 60 % Normal 36-65 [facility] Comment on above: Performed By: #### P HO, BMPX, MG, CDP #### [address] [address] Digital Content Specialist: Josef Rivera MD NRBC Automated 0.0 per 100 WBC Normal 0.0 [facility] Comment on above: Performed By: #### P HO, BMPX, MG, CDP #### [address] [address] Digital Content Specialist: Josef Rivera MD Platelet mean volume (Bld) [Entitic vol] 9.1 fL Normal 8.1-13.5 [facility] Comment on above: Performed By: #### P HO, BMPX, MG, CDP #### [address] [address] Digital Content Specialist: Josef Rivera MD Platelets (Bld) [#/Vol] 321 10*3/uL Normal 138-453 [facility] Comment on above: Performed By: #### P HO, BMPX, MG, CDP #### [address] [address] Digital Content Specialist: Josef Rivera MD RBC (Bld) [#/Vol] 4.00 10*6/uL Normal 3.95-5.11 [facility] Comment on above: Performed By: #### P HO, BMPX, MG, CDP #### [facility] [address] [place], [place] [id number] Digital Content Specialist: Josef Rivera MD WBC (Bld) [#/Vol] 5.4 10*3/uL Normal 3.5-11.3 [facility] Comment on above: Performed By: #### P HO, BMPX, MG, CDP #### [facility] [address] [place], [place] [id number] Digital Content Specialist: Josef Rivera MD Glucose,Whole Bloodon 2023 Glucose [Mass/Vol] 104 mg/dL Normal 65-105 [facility] Glucose [Mass/Vol] 120 mg/dL High 65-105 [facility] Glucose [Mass/Vol] 97 mg/dL Normal 65-105 [facility] POC Glucose Fingerstickon Glucose [Mass/Vol] 104 mg/dL 65 - 105 mg/dL [facility] Glucose [Mass/Vol] 120 mg/dL High 65 - 105 mg/dL [facility] Interpretation and review of laboratory results Abnormal [facility] Glucose [Mass/Vol] 97 mg/dL 65 - 105 mg/dL [facility] Basic Metab w/rfx MGon 08-29 Anion gap [Moles/Vol] 12 mmol/L Normal 9-16 [facility] Comment on above: Performed By: #### P HO, BMPX, MG, CDP #### [facility] [address] [place], [place] [id number] Digital Content Specialist: Josef Rivera MD Calcium [Mass/Vol] 8.9 mg/dL Normal 8.6-10.4 [facility] Comment on above: Performed By: #### P HO, BMPX, MG, CDP #### [facility] [address] [place] [address] Digital Content Specialist: Josef Rivera MD Chloride [Moles/Vol] 106 mmol/L Normal 98-107 [facility] Comment on above: Performed By: #### P HO, BMPX, MG, CDP #### [facility] [address] [place] [address] Digital Content Specialist: Josef Rivera MD CO2 [Moles/Vol] 22 mmol/L Normal 20-31 [facility] Comment on above: Performed By: #### P HO, BMPX, MG, CDP #### [facility] [address] [place] [address] Digital Content Specialist: Josef Rivera MD Creatinine [Mass/Vol] 0.7 mg/dL Normal 0.6-0.9 [facility] Comment on above: Performed By: #### P HO, BMPX, MG, CDP #### [facility] [address] [place] [address] Digital Content Specialist: Josef Rivera MD GFR/1.73 sq M.predicted among non-blacks MDRD (S/P/Bld) [Vol rate/Area] mL/min/{1.73_m2} Normal >60 [facility] Comment on above: Result Comment: These results [...] HO, BMPX, MG, CDP #### [facility] [address] [place] [address] Digital Content Specialist: Josef Rivera MD Glucose [Mass/Vol] 100 mg/dL High 74-99 [facility] Comment on above: Performed By: #### P HO, BMPX, MG, CDP #### [facility] [place] [address] Digital Content Specialist: Josef Rivera MD Potassium [Moles/Vol] 3.4 mmol/L Low 3.7-5.3 [facility] Comment on above: Performed By: #### P HO, BMPX, MG, CDP #### [facility] [address] [place] [address] Digital Content Specialist: Josef Rivera MD Sodium [Moles/Vol] 140 mmol/L Normal 136-145 [facility] Comment on above: Performed By: #### P HO, BMPX, MG, CDP #### [facility] [address] [place] [address] [phone] Digital Content Specialist: Josef Rivera MD Urea nitrogen [Mass/Vol] 9 mg/dL Normal 6-20 [facility] Comment on above: Performed By: #### P HO, BMPX, MG, CDP #### [facility] [address] [place] [address] Digital Content Specialist: Josef Rivera MD Basic Metabolic Panel w/ Ref galen to MGon 08-29-2024 Anion gap [Moles/Vol] 12 mmol/L 9 - 16 mmol/L [facility] Calcium [Mass/Vol] 8.9 mg/dL 8.6 - 10. 4 mg/dL [facility] Chloride [Moles/Vol] 106 mmol/L 98 - 10 7 mmol/L [facility] CO2 [Moles/Vol] 22 mmol/L 20 - 31 mmol/L [facility] Creatinine [Mass/Vol] 0.7 mg/dL 0.6 - 0.9 mg/dL [facility] Est, Glom Filt Rate - PINF [facility] Comment on above: These results are [...] High 74 - 99 mg/dL [facility] Interpretation and review of laboratory results Abnormal [facility] Potassium [Moles/Vol] 3.4 mmol/L Low 3.7 - 5.3 mmol/L [facility] Sodium [Moles/Vol] 140 mmol/L 136 - 145 mmol/L [facility] Urea nitrogen [Mass/Vol] 9 mg/dL 6 - 20 mg/dL [facility] CBC with Auto Differentialon 08-29-2024 Basophils (Bld) [#/Vol] [facility] Basophils/100 WBC (Bld) 0 % 0 - 2 % [facility] Eosinophils (Bld) [#/Vol] 0.24 10*3/uL [facility] Eosinophils/100 WBC (Bld) 4 % 1 - 4 % [facility] Erythrocyte distribution width (RBC) [Ratio] 13.1 % 11.8 - 14.4 % [facility] Hematocrit (Bld) [Volume fraction] 35.8 % Low 36.3 - 47.1 % [facility] Hemoglobin (Bld) [Mass/Vol] 11.2 g/dL Low 11.9 - 15.1 g/dL [facility] Immature granulocytes (Bld) [#/Vol] [facility] Immature granulocytes/100 WBC (Bld) 0 % 0 [facility] Interpretation and review of laboratory results Abnormal [facility] Lymphocytes/100 WBC (Bld) 25 % 24 - 43 % [facility] Lymphocytes/100 WBC (Bld) 1.43 % [facility] MCH (RBC) [Entitic mass] 29.2 pg 25.2 - 33.5 pg [facility] MCHC (RBC) [Mass/Vol] 31.3 g/dL 28.4 - 34.8 g/dL [facility] MCV (RBC) [Entitic vol] 93.2 fL 82.6 - 102.9 fL [facility] Monocytes/100 WBC (Bld) 7 % 3 - 12 % [facility] Monocytes/100 WBC (Bld) 0.39 % [facility] Neutrophils/100 WBC (Bld) 63 % 36 - 65 % [facility] Nucleated RBC/100 WBC (Bld) [Ratio] 0.0 % 0.0 per 100 WBC [facility] Platelet mean volume (Bld) [Entitic vol] 9.2 fL 8.1 - 13.5 fL [facility] Platelets (Bld) [#/Vol] 318 10*3/uL [facility] RBC (Bld) [#/Vol] 3.84 10*6/uL Low 3.95 - 5.1 1 m/uL [facility] Segmented neutrophils/100 WBC (Bld) 3.62 % [facility] WBC other (Bld) [#/Vol] 5.7 [facility] CBC with Diffon 08-29-2024 Abs. Basophil <0.03 Normal 0.00-0.20 [facility] Comment on above: Performed By: #### P HO, BMPX, MG, CDP #### [employer] [address] [place] [address] Digital Content Specialist: Josef Rivera MD Abs.Imm.Granulocyte <0.03 Normal 0.00-0.30 [facility] Comment on above: Performed By: #### P HO, BMPX, MG, CDP #### [employer] [address] [place] [phone] Digital Content Specialist: Josef Rivera MD Abs.Neutrophil (Seg) 3.62 k/uL Normal 1.50-8.10 [facility] Comment on above: Performed By: #### P HO, BMPX, MG, CDP #### [employer] [address] [place] [address] [phone] Digital Content Specialist: Josef Rivera MD Basophils/100 WBC (Bld) 0 % Normal 0-2 [facility] Comment on above: Performed By: #### P HO, BMPX, MG, CDP #### [facility] [employer] [address] [place] [phone] Digital Content Specialist: Josef Rivera MD Eosinophils (Bld) [#/Vol] 0.24 10*3/uL Normal 0.00-0.44 [facility] Comment on above: Performed By: #### P HO, BMPX, MG, CDP #### [facility] [address] [place] [address] Digital Content Specialist: Josef Rivera MD Eosinophils/100 WBC (Bld) 4 % Normal 1-4 [facility] Comment on above: Performed By: #### P HO, BMPX, MG, CDP #### [facility] [address] [place] [phone] Digital Content Specialist: Josef Rivera MD Erythrocyte distribution width (RBC) [Ratio] 13.1 % Normal 11.8-14.4 [facility] Comment on above: Performed By: #### P HO, BMPX, MG, CDP #### [facility] [employer] [employer] [address] [place] [address] Digital Content Specialist: Josef Rivera MD Hematocrit (Bld) [Volume fraction] 35.8 % Low 36.3-47.1 [facility] Comment on above: Performed By: #### P HO, BMPX, MG, CDP #### [facility] [address] [place] [address] Digital Content Specialist: Josef Rivera MD Hemoglobin (Bld) [Mass/Vol] 11.2 g/dL Low 11.9-15.1 [facility] Comment on above: Performed By: #### P HO, BMPX, MG, CDP #### [facility] [address] [place] [address] Digital Content Specialist: Josef Rivera MD Immature granulocytes/100 WBC (Bld) 0 % Normal 0 [facility] Comment on above: Performed By: #### P HO, BMPX, MG, CDP #### [facility] [employer] [address] [place] [phone] Digital Content Specialist: Josef Rivera MD Lymphocytes (Bld) [#/Vol] 1.43 10*3/uL Normal 1.10-3.70 [facility] Comment on above: Performed By: #### P HO, BMPX, MG, CDP #### [facility] [employer] [address] [place] [phone] Digital Content Specialist: Josef Rivera MD Lymphocytes/100 WBC (Bld) 25 % Normal 24-43 [facility] Comment on above: Performed By: #### P HO, BMPX, MG, CDP #### [address] [address] Digital Content Specialist: Josef Rivera MD MCH (RBC) [Entitic mass] 29.2 pg Normal 25.2-33.5 [facility] Comment on above: Performed By: #### P HO, BMPX, MG, CDP #### [facility] [employer] [address] [place] [address] Digital Content Specialist: Josef Rivera MD MCHC (RBC) [Mass/Vol] 31.3 g/dL Normal 28.4-34.8 [facility] Comment on above: Performed By: #### P HO, BMPX, MG, CDP #### [facility] [employer] [address] [place] [phone] Digital Content Specialist: Josef Rivera MD MCV (RBC) [Entitic vol] 93.2 fL Normal 82.6-102.9 [facility] Comment on above: Performed By: #### P HO, BMPX, MG, CDP #### [facility] [employer] [address] [place] [address] Digital Content Specialist: Josef Rivera MD Monocytes (Bld) [#/Vol] 0.39 10*3/uL Normal 0.10-1.20 [facility] Comment on above: Performed By: #### P HO, BMPX, MG, CDP #### [facility] [employer] [address] [place] [address] Digital Content Specialist: Josef Rivera MD Monocytes/100 WBC (Bld) 7 % Normal 3-12 [facility] Comment on above: Performed By: #### P HO, BMPX, MG, CDP #### [facility] [employer] [address] [place] [address] Digital Content Specialist: Josef Rivera MD Neutrophil (Seg) 63 % Normal 36-65 [facility] Comment on above: Performed By: #### P HO, BMPX, MG, CDP #### [facility] [employer] [address] [place] [phone] Digital Content Specialist: Josef Rivera MD NRBC Automated 0.0 per 100 WBC Normal 0.0 [facility] Comment on above: Performed By: #### P HO, BMPX, MG, CDP #### [facility] [employer] [address] [place] [phone] Digital Content Specialist: Josef Rivera MD Platelet mean volume (Bld) [Entitic vol] 9.2 fL Normal 8.1-13.5 [facility] Comment on above: Performed By: #### P HO, BMPX, MG, CDP #### [facility] [employer] [address] [place] [address] Digital Content Specialist: Josef Rivera MD Platelets (Bld) [#/Vol] 318 10*3/uL Normal 138-453 [facility] Comment on above: Performed By: #### P HO, BMPX, MG, CDP #### [facility] [employer] [address] [place] [address] Digital Content Specialist: Josef Rivera MD RBC (Bld) [#/Vol] 3.84 10*6/uL Low 3.95-5.11 [facility] Comment on above: Performed By: #### P DIANA, BMPX, MG, CDP #### [facility] [address] [place], [place] [phone] Digital Content Specialist: Josef Rivera MD WBC (Bld) [#/Vol] 5.7 10*3/uL Normal 3.5-11.3 [facility] Comment on above: Performed By: #### P HO, BMPX, MG, CDP #### [facility] [address] [place], [place] [phone] Digital Content Specialist: Josef Rivera MD Glucose,Whole Bloodon 2023 Glucose [Mass/Vol] 112 mg/dL High 65-105 [facility] Glucose [Mass/Vol] 114 mg/dL High 65-105 [facility] Glucose [Mass/Vol] 104 mg/dL Normal 65-105 [facility] Glucose [Mass/Vol] 106 mg/dL High 65-105 [facility] Magnesiumon 08-29-2024 Magnesium [Mass/Vol] 2.1 mg/dL 1.6 - 2 .6 mg/dL [facility] Magnesium [Mass/Vol] 2.1 mg/dL Normal 1.6-2.6 [facility] Comment on above: Performed By: #### P HO, BMPX, MG, CDP #### [facility] [address] [place], [place] [phone] Digital Content Specialist: Josef Rivera MD No Panel Informationon 08-29 [facility] [employer] POC Glucose Fingerstickon Glucose [Mass/Vol] 112 mg/dL High 65 - 105 mg/dL [facility] [employer] Interpretation and review of laboratory results Abnormal [facility] Glucose [Mass/Vol] 114 mg/dL High 65 - 105 mg/dL [facility] [employer] Interpretation and review of laboratory results Abnormal [facility] Glucose [Mass/Vol] 104 mg/dL 65 - 105 mg/dL [facility] Interpretation and review of laboratory results Abnormal [facility] Phosphoruson 08-29-2024 Phosphate [Mass/Vol] 4.0 mg/dL 2.5 - 4 .5 mg/dL [facility] Phosphorus, Inorg.on 08-29- 024 Phosphorus, Inorg. 4.0 mg/dL Normal 2.5-4.5 [facility] Comment on above: Performed By: #### P HO, BMPX, MG, CDP #### [facility] [place] [address] Digital Content Specialist: Josef Rivera MD XR ABDOMEN (KUB) (SINGLE [...] likely within the antrum of the stomach. media monitor leads overlie the upper abdomen. Iliac [...] Paco Richardson MD 08/29/24 Final result Normal [facility] XR Abdomen Single viewon 1. Moderate gaseous distention of the rectal vault. Gas and stool in the rectal vault. 2. Mild stool burden. No abnormally dilated small bowel loops. 3. NG tube distal tip overlying the medial right upper quadrant likely in the antrum of the stomach. [facility] EXAMINATION: ONE SUPINE XRAY VIEW(S) OF [...] likely within the antrum of the stomach. media monitor leads overlie the upper abdomen. Iliac wings and pubic rami grossly unremarkable in appearance. [facility] Dylan, Paco Hairston MD - 08/29/2024 EXAMINATION: ONE [...] likely within the antrum of the stomach. media monitor leads overlie the upper abdomen. Iliac wings and pubic rami grossly unremarkable in appearance. IMPRESSION: 1. Moderate gaseous distention of the rectal vault. Gas and stool in the rectal vault. 2. Mild stool burden. No abnormally dilated small bowel loops. 3. NG tube distal tip overlying the medial right upper quadrant likely in the antrum of the stomach. [facility] Radiology Study observation (narrative) [facility] XR Abdomen Single viewOrdere d By: Paco Richardson on 08-29-2024 [facility] Work Phone: CBC with Auto Differentialon 08-28-2024 Basophils (Bld) [#/Vol] [facility] Basophils/100 WBC (Bld) 0 % 0 - 2 % [facility] Eosinophils (Bld) [#/Vol] 0.05 10*3/uL [facility] Eosinophils/100 WBC (Bld) 1 % 1 - 4 % [facility] Erythrocyte distribution width (RBC) [Ratio] 13.1 % 11.8 - 14.4 % [facility] Hematocrit (Bld) [Volume fraction] 37.2 % 36.3 - 47.1 % [facility] Hemoglobin (Bld) [Mass/Vol] 11.9 g/dL 11.9 - 15.1 g/dL [facility] Immature granulocytes (Bld) [#/Vol] 0.03 10*3/uL [facility] Immature granulocytes/100 WBC (Bld) 0 % 0 [facility] Interpretation and review of laboratory results Abnormal [facility] Lymphocytes/100 WBC (Bld) 11 % Low 24 - 43 % [facility] Lymphocytes/100 WBC (Bld) 0.99 % Low [facility] MCH (RBC) [Entitic mass] 29.5 pg 25.2 - 33.5 pg [facility] MCHC (RBC) [Mass/Vol] 32.0 g/dL 28.4 - 34.8 g/dL [facility] MCV (RBC) [Entitic vol] 92.3 fL 82.6 - 102.9 fL [facility] Monocytes/100 WBC (Bld) 5 % 3 - 12 % [facility] Monocytes/100 WBC (Bld) 0.40 % [facility] Neutrophils/100 WBC (Bld) 83 % High 36 - 65 % [facility] Nucleated RBC/100 WBC (Bld) [Ratio] 0.0 % 0.0 per 100 WBC [facility] Platelet mean volume (Bld) [Entitic vol] 9.2 fL 8.1 - 13.5 fL [facility] Platelets (Bld) [#/Vol] 359 10*3/uL [facility] RBC (Bld) [#/Vol] 4.03 10*6/uL 3.95 - 5.1 1 m/uL [facility] Segmented neutrophils/100 WBC (Bld) 7.44 % [facility] WBC other (Bld) [#/Vol] 8.9 [facility] CBC with Diffon 08-28-2024 Abs. Basophil <0.03 Normal 0.00-0.20 [facility] Comment on above: Performed By: #### C P, CDP #### [address] [address] Digital Content Specialist: Josef Rivera MD Abs.Imm.Granulocyte 0.03 k/uL Normal 0.00-0.30 [facility] Comment on above: Performed By: #### C P, CDP #### [address] [address] Digital Content Specialist: Josef Rivera MD Abs.Neutrophil (Seg) 7.44 k/uL Normal 1.50-8.10 [facility] Comment on above: Performed By: #### C P, CDP #### [address] [address] Digital Content Specialist: Josef Rivera MD Basophils/100 WBC (Bld) 0 % Normal 0-2 [facility] Comment on above: Performed By: #### C P, CDP #### [address] [address] Digital Content Specialist: Josef Rivera MD Eosinophils (Bld) [#/Vol] 0.05 10*3/uL Normal 0.00-0.44 [facility] Comment on above: Performed By: #### C P, CDP #### [address] [address] Digital Content Specialist: Josef Rivera MD Eosinophils/100 WBC (Bld) 1 % Normal 1-4 [facility] Comment on above: Performed By: #### C P, CDP #### [address] [address] Digital Content Specialist: Josef Rivera MD Erythrocyte distribution width (RBC) [Ratio] 13.1 % Normal 11.8-14.4 [facility] Comment on above: Performed By: #### C P, CDP #### [address] [address] Digital Content Specialist: Josef Rivera MD Hematocrit (Bld) [Volume fraction] 37.2 % Normal 36.3-47.1 [facility] Comment on above: Performed By: #### C P, CDP #### [address] [address] Digital Content Specialist: Josef Rivera MD Hemoglobin (Bld) [Mass/Vol] 11.9 g/dL Normal 11.9-15.1 [facility] Comment on above: Performed By: #### C P, CDP #### [address] [address] Digital Content Specialist: Josef Rivera MD Immature granulocytes/100 WBC (Bld) 0 % Normal 0 [facility] Comment on above: Performed By: #### C P, CDP #### [address] [address] Digital Content Specialist: Josef Rivera MD Lymphocytes (Bld) [#/Vol] 0.99 10*3/uL Low 1.10-3.70 [facility] Comment on above: Performed By: #### C P, CDP #### [address] [address] Digital Content Specialist: Josef Rivera MD Lymphocytes/100 WBC (Bld) 11 % Low 24-43 [facility] Comment on above: Performed By: #### C P, CDP #### [address] [address] Digital Content Specialist: Josef Rivera MD MCH (RBC) [Entitic mass] 29.5 pg Normal 25.2-33.5 [facility] Comment on above: Performed By: #### C P, CDP #### [address] [address] Digital Content Specialist: Josef Rivera MD MCHC (RBC) [Mass/Vol] 32.0 g/dL Normal 28.4-34.8 [facility] Comment on above: Performed By: #### C P, CDP #### [address] [address] Digital Content Specialist: Josef Rivera MD MCV (RBC) [Entitic vol] 92.3 fL Normal 82.6-102.9 [facility] Comment on above: Performed By: #### C P, CDP #### [address] [address] Digital Content Specialist: Josef Rivera MD Monocytes (Bld) [#/Vol] 0.40 10*3/uL Normal 0.10-1.20 [facility] Comment on above: Performed By: #### C P, CDP #### [address] [address] Digital Content Specialist: Josef Rivera MD Monocytes/100 WBC (Bld) 5 % Normal 3-12 [facility] Comment on above: Performed By: #### C P, CDP #### [address] [address] Digital Content Specialist: Josef Rivera MD Neutrophil (Seg) 83 % High 36-65 [facility] Comment on above: Performed By: #### C P, CDP #### [address] [address] Digital Content Specialist: Josef Rivera MD NRBC Automated 0.0 per 100 WBC Normal 0.0 [facility] Comment on above: Performed By: #### C P, CDP #### [address] [address] Digital Content Specialist: Josef Rivera MD Platelet mean volume (Bld) [Entitic vol] 9.2 fL Normal 8.1-13.5 [facility] Comment on above: Performed By: #### C P, CDP #### [address] [address] Digital Content Specialist: Josef Rivera MD Platelets (Bld) [#/Vol] 359 10*3/uL Normal 138-453 [facility] Comment on above: Performed By: #### C P, CDP #### [address] [address] Digital Content Specialist: Josef Rivera MD RBC (Bld) [#/Vol] 4.03 10*6/uL Normal 3.95-5.11 [facility] Comment on above: Performed By: #### C P, CDP #### [address] [address] Digital Content Specialist: oJsef Rivera MD WBC (Bld) [#/Vol] 8.9 10*3/uL Normal 3.5-11.3 [facility] Comment on above: Performed By: #### C P, CDP #### [address] [address] Digital Content Specialist: Josef Rivera MD Comp Metabolic Profon 2023 Albumin [Mass/Vol] 4.2 g/dL Normal 3.5-5.2 [facility] Comment on above: Performed By: #### P HO, BMPX, MG, CDP #### [address] [address] Digital Content Specialist: Josef Rivera MD Albumin/Glob Ratio 1.4 Normal 1.0-2.5 [facility] Comment on above: Performed By: #### P HO, BMPX, MG, CDP #### [facility] [address] [place] [address] Digital Content Specialist: Josef Rivera MD Alkaline Phos 162 U/L High 35-104 [facility] Comment on above: Performed By: #### P HO, BMPX, MG, CDP #### [facility] [address] [place] [address] Digital Content Specialist: Josef Rivera MD ALT [Catalytic activity/Vol] 14 U/L Normal 10-35 [facility] Comment on above: Performed By: #### P HO, BMPX, MG, CDP #### [facility] [address] [place] [address] Digital Content Specialist: Josef Rivera MD Anion gap [Moles/Vol] 11 mmol/L Normal 9-16 [facility] Comment on above: Performed By: #### P HO, BMPX, MG, CDP #### [facility] [address] [place] [address]21 Digital Content Specialist: Josef Rivera MD AST [Catalytic activity/Vol] 23 U/L Normal 10-35 [facility] Comment on above: Performed By: #### P HO, BMPX, MG, CDP #### [facility] [address] [place] [address]102 Digital Content Specialist: Josef Rivera MD Bilirubin [Mass/Vol] 0.2 mg/dL Normal 0.0-1.2 [facility] Comment on above: Performed By: #### P HO, BMPX, MG, CDP #### [facility] [address] [place] [address]103 Digital Content Specialist: Josef Rivera MD Calcium [Mass/Vol] 9.4 mg/dL Normal 8.6-10.4 [facility] Comment on above: Performed By: #### P HO, BMPX, MG, CDP #### [facility] [place] [address] Digital Content Specialist: Josef Rivera MD Chloride [Moles/Vol] 104 mmol/L Normal 98-107 [facility] Comment on above: Performed By: #### P HO, BMPX, MG, CDP #### [facility] [address] [place] [address]16 Digital Content Specialist: Josef Rivera MD CO2 [Moles/Vol] 23 mmol/L Normal 20-31 [facility] Comment on above: Performed By: #### P HO, BMPX, MG, CDP #### [facility] [address] [place] [address] Digital Content Specialist: Josef Rivera MD Creatinine [Mass/Vol] 0.7 mg/dL Normal 0.6-0.9 [facility] Comment on above: Performed By: #### P HO, BMPX, MG, CDP #### [facility] [address] [place] [address] 27977 Digital Content Specialist: Josef Rivera MD GFR/1.73 sq M.predicted among non-blacks MDRD (S/P/Bld) [Vol rate/Area] mL/min/{1.73_m2} Normal >60 [facility] Comment on above: Result Comment: These results [...] P HO, BMPX, MG, CDP #### [facility] [place] [address] Digital Content Specialist: Josef Rivera MD Glucose [Mass/Vol] 115 mg/dL High 74-99 [facility] Comment on above: Performed By: #### P HO, BMPX, MG, CDP #### [facility] [place] [address] Digital Content Specialist: Josef Rivera MD Potassium [Moles/Vol] 4.3 mmol/L Normal 3.7-5.3 [facility] Comment on above: Performed By: #### P HO, BMPX, MG, CDP #### [facility] [address] [place] [address] 239[address] Digital Content Specialist: Josef Rivera MD Protein [Mass/Vol] 7.1 g/dL Normal 6.6-8.7 [facility] Comment on above: Performed By: #### P HO, BMPX, MG, CDP #### [facility] [address] [place] [address]16 Digital Content Specialist: Josef Rivera MD Sodium [Moles/Vol] 138 mmol/L Normal 136-145 [facility] Comment on above: Performed By: #### P HO, BMPX, MG, CDP #### [facility] [address] [place] [address] [id number] Digital Content Specialist: Josef Rivera MD Urea nitrogen [Mass/Vol] 9 mg/dL Normal 6-20 [facility] Comment on above: Performed By: #### P HO, BMPX, MG, CDP #### [facility] [address] [place] [address]13 Digital Content Specialist: Josef Rivera MD Comprehensive Metabolic Pane [facility] 08-28-2024 Albumin [Mass/Vol] 4.2 g/dL 3.5 - 5.2 g/dL [facility] Albumin/Globulin [Mass ratio] 1.4 {ratio} 1.0 - 2.5 [facility] ALP [Catalytic activity/Vol] 162 U/L High 35 - 104 U/L [facility] ALT [Catalytic activity/Vol] 14 U/L 10 - 35 U/L [facility] Anion gap [Moles/Vol] 11 mmol/L 9 - 16 mmol/L [facility] AST [Catalytic activity/Vol] 23 U/L 10 - 35 U/L [facility] Bilirubin [Mass/Vol] 0.2 mg/dL 0.0 - 1 .2 mg/dL [facility] Calcium [Mass/Vol] 9.4 mg/dL 8.6 - 10. 4 mg/dL [facility] Chloride [Moles/Vol] 104 mmol/L 98 - 10 7 mmol/L [facility] CO2 [Moles/Vol] 23 mmol/L 20 - 31 mmol/L [facility] Creatinine [Mass/Vol] 0.7 mg/dL 0.6 - 0.9 mg/dL [facility] Javier Gray Rate - PINF [facility] Comment on above: These results are [...] High 74 - 99 mg/dL [facility] Interpretation and review of laboratory results Abnormal [facility] Potassium [Moles/Vol] 4.3 mmol/L 3.7 - 5.3 mmol/L [facility] Protein [Mass/Vol] 7.1 g/dL 6.6 - 8.7 g/dL [facility] Sodium [Moles/Vol] 138 mmol/L 136 - 145 mmol/L [facility] Urea nitrogen [Mass/Vol] 9 mg/dL 6 - 20 mg/dL [facility] Glucose,Whole Bloodon 2023 Glucose [Mass/Vol] 100 mg/dL Normal 65-105 [facility] Lactic Acidon 08-28-2024 Lactic Acid, Whole Blood 1.2 mmol/L 0.7 - 2.1 mmol/L [facility] Lactic Acid,Whole Bl 1.2 mmol/L Normal 0.7-2.1 [facility] Comment on above: Performed By: #### P HO, BMPX, MG, CDP #### [employer] [address] [place], [place] [id number] Digital Content Specialist: Josef Rivera MD Magnesiumon 08-28-2024 Magnesium [Mass/Vol] 2.1 mg/dL 1.6 - 2 .6 mg/dL [facility] Magnesium [Mass/Vol] 2.1 mg/dL Normal 1.6-2.6 [facility] Comment on above: Performed By: #### M G #### [employer] [address] [place], [place] [id number] Digital Content Specialist: Josef Rivera MD POC Glucose Fingerstickon Glucose [Mass/Vol] 100 mg/dL 65 - 105 mg/dL [facility] [employer] XR ABDOMEN (KUB) (SINGLE AP VIEW)on 08-28-2024 [...] Rashaad Lopez MD 08/28/24 Final result Normal [facility] XR Abdomen Single viewon 1. Nonobstructive marium [...] could represent pneumonia. Bony structures appear normal. [facility] Rashaad Lopez MD - 08/28/2024 EXAMINATION: ONE [...] infiltrate, which could represent pneumonia. [facility] Radiology Study observation (narrative) [facility] XR Abdomen Single viewOrdere d By: Rashaad Lopez on 08-28-2024 [facility] Work Phone: Glucose (Bld) [Mass/Vol]on 09-12-2023 Glucose Blood, POC 90 mg/dL [facility] - Hematology and Cell countson 07-13-2024 HbA1c (Bld) [Mass fraction] 5.6 % [facility] No Panel Informationon 07-13 Interpretation and review of laboratory results Normal [facility] Glucose (Bld) [Mass/Vol]Orde red By: Beverly Clemons on 06-20-2024 Glucose Blood, POC 101 mg/dL [facility] - Hematology and Cell countson 06-20-2024 HbA1c (Bld) [Mass fraction] 5.8 % [facility] No Panel InformationOrdered By: Beverly Clemons on 06-20-2024 [facility] Office Visiton 05-14-2024 Follow-up visit [id number] Arielle Cardoso 1970 F Date Provider Department Center 05/14/2024 85795-OPLZONEDISON KINCAID MICHAEL Zhao Family History Problem Relation Age of Onset Heart attack Father Family Status - Relation Status Age at Father Level of Service:82969 [place] OFFICE/OUTPATIENT ESTABLISHED MOD MDM 30 MIN Reason for Visit and Comments: Hypertension [679942] - Patient here for 2 mo follow up. She was started on lisinopril 10mg daily at last visit. She presented to the ED last month for abdominal pain. EKG was done and showed bradycardia. Palpitations [073796] - Not as bad, still has them Shortness of Breath [] - Improving Normal [facility] Maury 05-11-2024 L Specimen: [id number] Received: 05/11/24 Status: XAVI Larry Num: [id number] Spec Type: Surgical Subm Dr: Jennie Ayon MD Tissues: A GASTRIC FOR HP (GASTRIC R/O H PYLORI) B Esophagus Biopsy (ESOPHAGUS BX R/O BARRETTS) Procedures: HE/4, Gross/Micro L4/2, H PYLORI Age/ Patient Sex Location Account Attending Physician Constantino Cardoso 53/F [id number] Jennie Ayon MD SPEC NUM: [id number] RECD: 05/11/24 STATUS: XAVI NOLASCOPacheco NUM: [id number] HAYDEN: 05/11/[address]: Jennie Ayon MD ENTERED: 05/11/[address] [facility] [address]: SPEC TYPE: Surgical DEPT: S ENTERED BY: [id number] RECV BY: [id number] ORDERED: HE/4, Gross/Micro L4/2, H PYLORI ORDERED: HE/4, Gross/Micro L4/2, H PYLORI Supplemental Report Addendum 2 Entered: 05/18/24 Supplemental to add CPT code of immunostain: A, CPT: 17717 Addendum Signed (signature on file) Robby Smyth MD 05/18/241707 Addendum 1 Entered: 05/18/24 Supplemental for findings of H. pylori immunostain: A, -H. pylori immunostain with appropriate control is negative for identified Helicobacter organism or infection Specimen: [id number] Received: 05/11/24 Status: XAVI Juarez Num: [id number] Spec Type: Surgical Subm Dr: Jennie Ayon MD Tissues: A GASTRIC FOR HP (GASTRIC R/O H PYLORI) B Esophagus Biopsy (ESOPHAGUS BX R/O BARRETTS) Procedures: HE/4, Gross/Micro L4/2, H PYLORI Patient: Constantino Cardoso [id number] (Continued) Specimen: [id number] Received: 05/11/24 (Continued) Supplemental Report (Continued) Signed (signature on file) Chin-Nathan Smyth, MD 05/17/24 1326 Specimen: [id number] Received: 05/11/24 Status: XAVI Juarez Num: [id number] Spec Type: Surgical Subm Dr: Jennie Ayon MD Tissues: A GASTRIC FOR HP (GASTRIC R/O H PYLORI) B Esophagus Biopsy (ESOPHAGUS BX R/O BARRETTS) Procedures: HE/4, Gross/Micro L4/2, H PYLORI Patient: Constantino Cardoso [id number] (Continued) Specimen: [id number] Received: 05/11/24 (Continued) Supplemental Report (Continued) Addendum Signed (signature on file)Cornelio Smyth MD 05/18/24 1703 Pathological Diagnosis A, [...] are performed supporting the above interpretation Specimen: [id number] Received: 05/11/24 Status: XAVI Juarez Num: [id number] Spec Type: Surgical Subm Dr: Jennie Ayon MD Tissues: A GASTRIC FOR HP (GASTRIC R/O H PYLORI) B Esophagus Biopsy (ESOPHAGUS BX R/O BARRETTS) Procedures: HE/4, Gross/Micro L4/2, H PYLORI Patient: MauryConstantino Hairston [id number] (Continued) Specimen: [id number] Received: 05/11/24-1431 (Continued) Signed (signature on file) Robby Smyth MD 05/17/24 1326 Specimen: [id number] Rece (more content not included)... Normal [facility] Reminderson 04-09-2024 Reminders Reminders From: Ani Jackson To: EU - Administrative; Sent: 02/16/2024 09:54:18 EDT Show up: 03/05/2024 09:54:00 EDT Subject: Ambulatory Reminder Due Date/Time: 05/20/2024 09:54:00 EDT Reminder/Recall Patient needs scheduled for a 3 month f/u with AO in [facility] due back mid May. [facility] TO CALL AND SCHEDULE APPT Pt called back and scheduled appt. Normal [facility] Office Visiton 03-19-2024 Follow-up visit [id number] Arielle Cardoso 1970 F Date Provider Department Center 03/19/2024 74034-JOCBTDEDISON KINCAID MICHAEL Zhao Family History Problem Relation Age of Onset Heart attack Father Family Status - Relation Status Age at Father Level of Service:31725 [place] OFFICE/OUTPATIENT ESTABLISHED MOD MDM 30 MIN Normal [facility] Coding Summary.on 02-25-2024 Coding Summary. PFXZYdxh34ZKb1sYf+PG hlYWQ +HQ1MZPOvW87kqTWrhF7qN1HK TElOSywgQVBQTElOSyIgbmFtZ O5tgGVtAAAo IC8+XK8mCGWtJdzthWNdb8J6z JG3G94olx7lDNxsqRA8IUEeBi Hxhkfla9bhwFd1DGewAgkcUqD t GSQupN65KEQ2xM88Ld17sEGvo OOjs3mcsIt6XhZwHLPpNDK8hG clJZyjg1CeBKYwD94xyQZkf6G 6 FWWenLydbEIdXqNcfER4yJ5uX Cljlgsoq7oxykbsKvv3um76tN Spo2B2jVR1S6QvfcN8FGMevLO g DjqdtGXNsI4zsxgjy9uzxfztB tWxMHBwXPs5TCn9LAQpqGwnCg YmQK44XKR2TINqmqScS6RqFDM s aGhfUlR5u1R3Yr3YS6RLBgztM 1VNTUFSWTwvdGQ+DH47fv54C1 CeToawMzd1JXAnYES2oLF9pZ0 n YONeSXxzi0O4hOP9A1SvxxQro a8lq2qiEUKqQZroT34mxFPqo8 K1FIKwkWX8PQOupCvmZvEtmG9 3 Oyc+OTQwyHeue6RkYrric4yhx 5vcgGx4QcxoFJXtkeFizWclVM D3v7CkFn4kDFDxsHY4pHE9vZ9 i OyXkNsN3XTzcN669LdBafPCyC auvL24eL5JdyJD+WROtZmi6SE KswDkwAJ7vH9OdMNAmponhuUK m gPtePX6oZUUlcdylNOWcfO8jQ HTkI9d1OgWrIsB5UAmfF1TlNE LnxfbjMj23jL3bTmInUnZ1CRi u J5ZscwD7MEUztKGvNUemYFC7W 18ww9L8UVMyCCJvXTL7oFO3bL 1hbGlnbjogbGVmdDsgdmVydGl j NUdaXErsG767FKIvaYgnYwKnH GluZyBEYXRlOiAgMDYvMjIvMj AyNDwvdGQ+TSRrEWV1qXwaWWM n yIPuXDelSo9yrKljwNsxBU2nA GAuhccbQTZgzF9lAIGuxTPryU coIA1hQMHjkoomk292WdWoPQP 0 JTNhdIBrL4ZvaT0rZySaMMKxK LCvT1JaxFPqWBzbR607VTwgZi H8QSYgdqYvT5WnOEGyuMotYdX 0 h9E5Xh1Ti8YygwefP5QkgNWbO mZzCxdkFWe1K9EdZoccoNM+PC 46JMHqTH04POm4ZRZ4lDtkNPu i YLCxF8RzdE2cOgOmTOFcGELmY yc+PHRhYmxlIHdpZHRoPScxMD JqVcVbxMjzWO4qAa7wQZAxHER v tJfflQNeMfYvh8yxAVCzVPjaA N0jnQwkP2AjiMN4RBDai6z1Et 93M90nT3XmnDZ+TTTjiFK2nAJ 0 kI8cGdDmEtH9OZncF994FmIxv SQlBuwxm1jss1gmxJh9DiV1YA KahkSsxVwaLWB4k5StWf64K21 s IHdpZHRoPSIxNSUiIHZhbGlnb m7caH0nFf7+MJHxqDD1vCJ6pS 4kJyGgNeN3QGuxS553FsCjuKF v Xyiwi5slr3ymtKr7ZkSnTXXju mRgcVxfFZU5z5SbVh15D6VxkX hii6JkYao0yp32pGCdq5Y8oTQ 9 Z4CmWNOxphsvyDGefVyzQD2kY ITrmvquNBQdiH7pZLYbK3w6Iy QzEvI2IXndY7OyzjE8FZMfcNJ g KDMecULZdH6bfvcjf6omhawlV jAfGFGwHKf7ASj4PGNczNhiDq MmRDP2CfO8JAZ0vBNqdG1qjPd n hrzfkY1xCiy+ESB9xZGnwVRJE M3iQjozeOQ+RTKhXVB9hSetAV tgILUhvL2tCHZgA2b6ZlLqYoZ 1 LNvkY5GdfmN2JXXgfUUpKOUdm TDBbV2bfwejn7hzkqnlLdTvRP JpFLr0WFc5ZLWlsGnoWoLxUDZ 0 LgQ2EEP9pLFskI0cvQzmumvaj G9wOyc+KjheuJlmHNZ7AYn4E1 XyJft6XFFdjUdfRV5xjKRoDIy u Cp9udOqdoTtvYN2rMYFylwlsy 747DrEwe3eiNTOnlXWaNQgjKW A9X95bd6F1SLUrCIGrXIA6bGC 4 uY7ckSvamjffoHRjvSmaxzSos LvuBCubWSrdZ254LMVxsBofXh VcYCp0V4FeNyq6RPMfhPxgEI9 n iAAnDLceCu3leZkycNejGX5kK RKjgotgk634AfHqy5paGGIzwY FmQXuxAVG5J30dk0Y0FUGoUET w LWU1hPX6wJ1psAnkkkcjsFHlp ExbglJnwTcmZPjrYArgS005CG HvhQhzGiUtgBv0L4OpJvl2TIG z xOwvHM4agEKlOEobDj6bmQdcs QiuVI3bOVCoscztf195GyXea4 xuCVGskZKfGBygIQJ4B05fp5Z 6 UAJbVBRqAOJ2tHF1xR4dzAnct jogbGVmdDsgdmVydGljYWwtYW mmN174UGCysJleQuAarZjhrcE g SXrdJNp5K4TbDvrxeVZ+PC90Y CIxIS95gOAmiFRsl8cdnZd6Mn CuVXDcTSJ2lKruLDwfk0ZhEOC t N14lhSEts3E7XGKjxUtdeGOpS hGkpEH4cJ2nIMgvpneja4negc fsFktdc0tzrl32tD87Q18uPSm p ETEzIISsHITwABNqrBdaxh4cq G9wIi8+AUThsUA6oES1mU0oDW RjFhU1VOixK545FsZqiASiAth j z5dkp0znpHj7UfJ3KFTvizSrg JwiURF6z5YuUe06W96tXIeqES YsDEZyJSPsYYUghHddoo1lmH5 w Ii8+MXFpeHY6pDL5hT1iFmWbV eU4GJwyH687XwDawCCaGkrzF6 1yK2PxaYK+NLGnLet4RLTgaWd s YE9tlRWzXYldCt2kQAH0LqVtN yVjJNrrW5TmTUWlrpylhsiypA A8LAVsSSPqdE51Di9jcBmhEXX w fULJxO3yuuoes2ymycrfGaAwG UEwSJe1NKt2CPQolXcjNjUiUW T9UnU7LTF4wAXyqD2gqGoinnr g eH6lK0TaPGKulbnqKx95bW1jO sFlWtO3NUwrHsf+H9VQXPsbBJ XXCQdZES1QSLNMEE02PP77cVH g g7T5aRE9P6AxQMPciszvkyesz BJ7SJRsZZByaE83hJKwZWwtLo 5yo5C3l119FVJgQXCwqU31Ey4 u zOkxMDMavETLjE5vorgit5gsn donLyYjTZPiXVw0DPj5IVQnuJ zyDgSqRZA2FiI8HIG1gFIruB7 h tXijvkcoiQ3fIla+MDkvMjMvM Oh3TOszpWR+AWAzEBO4hTsqEP gsCYEwiH2yVNJqR3u6HbLzXsJ 1 AZhfN9IyBTTnxjsuQq23hV5dO ySuMrG9YUmmB6PmczK3JXNzlI XcYBjfGDG0M00fh2A2VZNzRUK w MXX2vVZ8tM7owYozsrzbsXYcp JudlvCqkAngXMwhFEztH752YM TwsSehBgMkJBhoPODuPE55PV5 8 lWRhw2O5eAW5X0QyNPTjhvsup ffxmIX4WTOzFVIlpG66iSWwEN mdHw1nh5U4f285MQUtXSFuqM2 7 Uv1rmTcySPNkrFDGpX9swhjaj 6ziyjlsAsQtAYTvIWn1JGt8OA AgfTlkJkGbLGE7RtB0AVJ6uXO h jY6laAzxwukfhV9nDoh+RmVtY UorTS20SA52lLDpz8W7pRC6F9 PxFQQijbhbsyjvqGM0OEDmSOU w qG77dLEnIAxwPy0fv2K5x307U RRmOLDbwR12Ls2hzKqqISUivG POlS3tbbhde6tzovgiEeRyYWA w QVr0WJe2LHFjiLolLiLsRUN9O aD1REF6lNQwxF0xgEybzrhlyW 9wOyc+XLUnBABpf7Amx0OpVS2 0 DJ90G4TfYmtzeGKzjCK+PHRhY mxlIHdpZHRoPScxMDAlJyBzdH yxNW4cTx8sGAQmKHGqvYfbeVX l TaEyu9frDTOyJTtvOQ9cwKrcY 1PjuNL5NZByi8p8Ht75R88vK2 JvdXA+JLSebJG4fQA7kC8aDtS l GsB5ULypT297JlRjjMUmNhbdi 3idl6dbiWo7XmCyXBKlhhMzlK ucWXG0m7SaWo86A57uVTmgYIK o BPSvBJCnSEMymKebmd2ghS2dP i8+IKRhrYL6lHR9fW4rWvZoAn J0QTysR537CnNdgENlDpzuP72 s E7PqlTZ+ZLDqUan9REFzgCxjS P5iaAVwFTtyBa3lTPC9XnEbEv AhKDayJ8SmAGTnsgjplhzjoBQ 6 HTJfKNFdyP15My2nqWiwDp8wE FShOQS1TUIfmFNvE7PxoN3gMe AzTPSpLRRuV3KebFBcWWphS69 6 FVxhYkW3YIBpdaOdK4GoJBIjg AxpKpH8p9E2Kq6IbFehiZNgQH 7qLtFdZOp0H3ZgRaa9OJPzgEy s PA3drYSgRSniUc3plYatcUuxB I4mNLFxdquyk229FkTqv6uwIZ ZvpXDdYNhcEVZ6D84iy1S4GNG w AGVvHHP5tQL4pI7osQzxdxvna GVmdDsgdmVydGljYWwtYWxpZ2 86RIBaeNwgKbVXAgn6F9ZuDdb 0 MSPpnLhoMW4baZPcCQdrPy3yr GndqRvlCP8zDXOqxsfar928Rf Wgx1kaOGIgzLOpZKnnIKC0D14 s y5P1CIMiIFPuKTE0qVE4zF3zy GlnbjogbGVmdDsgdmVydGljYW yiGNcdT053GJRviZegWw8YQcm 8 I6HmIzc8BNYiaDqyUC0rjRRoB NylPm9dyAiwhZldHW5rBPAnsq slb767AqLtq6sbGHCcdHWjINy t ZZQ5U48rz6D1JPUgXTIwRQL7v HX6vK0byPnmcngjsXUpiHmycb JyaRoqVWwrETssG376PUUphFa n PlBheWVyOjwvdGQ+UH82ad60D 2EdTdxwFvo6ESAtYTP4vMF5kR 1kYOWtLJtfl0D5gDX5Z6TvfuW l zd1py0snPJWhE (more content not included)... Normal [facility] Patient Educationon 02-21-20 Patient Education Obstetrics and [...] this condition includes: ? Antibiotic medicine. ? Huck-cdg-jafxksm medicines to treat discomfort. ? Drinking enough [...] these instructions at home: Medicines ? Take oivs-mte-dbxzjgg and prescription medicines only as told by [...] Revie (more content not included)... Normal [facility] Urology Office/Clinic Noteon 02-21-2024 Urology Office/Clinic Note [...] with voice recognition artificial intelligence software, specifically [employer], [employer] and or [employer]. 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 (more content not included)... Normal [facility] Comment on above: Result Comment: Elec tronically [...] Locations R1: This test was performed at: [facility], [address] [place] [address], [address]- , , [facility] Comment on above: Performed By: #### [id number] #### [facility] [address] [place] [address] Lab Reportson 02-17-2024 Lab Reports [id number]#1.00TIFF [facility] RAD - Ultrasound Reporton RAD - Ultrasound Report [id number]#1.00TIFF [facility] Screenson 02-17-2024 Screens [id number]#1.00TIFF [facility] URINALYSISOrdered By: SYSTEM SYSTEM on 02-16-2024 Bilirubin Ql (U) Negative Normal Negativemg/ dL [facility] UA Auto SS Clarity (U) Clear (02/16/24 10:01 AM) Normal Clear [facility] UA Auto SS Color (U) Light-Yellow 1 (02/16/24 10:01 AM) Normal Yellow [facility] UA Auto SS Comment on above: Interpretive Data: M icroscopic readings are only performed on those samples that meet specific criteria set forth by [facility]. Epithelial cells.squamous Auto (Urine sed) [#/Area] [...] strip Ql (U) Negative Normal Negativemg/ dL [facility] UA Auto SS pH (U) 5.5 *NA* (02/16/24 10:01 AM) Invalid Interpretation Code 5.0 - 9.0 [facility] UA Auto SS Protein Ql (U) Negative Normal Negativemg/ dL [facility] UA Auto SS RBC Ql (U) 0-3 graded/HPF Normal 0-3graded/H PF FT UA Auto SS Specific gravity (U) [Rel density] 1.021 *NA* (02/16/24 10:01 AM) Invalid Interpretation Code 1.005 - 1.030 [facility] UA Auto SS Urobilinogen (U) [Mass/Vol] Negative Normal Negativemg/ dL [facility] UA Auto SS WBC Auto (Urine sed) [#/Area] 0-5 graded/HPF Normal 0-5graded/H PF [facility] UA Auto SS URINALYSISOrdered By: Kimberly Santos on 02-16-2024 UA Spec Desc Clean Catch (02/16/24 10:01 AM) Normal [facility] UA Auto SS Urinalysis with Microon 02-03 Bilirubin Ql (U) Negative Normal Negative [facility] Comment on above: Performed By: #### [id number] #### [facility] [address] [place] [address] Clarity (U) Clear Normal Clear [facility] Comment on above: Performed By: #### 4 [id number] #### [facility] [address] [place] [address] Color (U) Light-Yellow Normal Yellow [facility] Comment on above: Result Comment: Micr oscopic readings are only performed on those samples that meet specific criteria set forth by [facility]. Performed By: #### 4 [id number] #### [facility] [address] [place] [address] Epithelial cells.squamous Auto (Urine sed) [#/Area] 0-2 Invalid Interpretation Code [facility] Comment on above: Performed By: #### 4 [id number] #### [facility] [address] [place] [address] Glucose Ql (U) Negative Normal Negative [facility] Comment on above: Performed By: #### 4 [id number] #### [facility] [address] [place] [address] Hemoglobin Auto test strip (U) [Mass/Vol] 1+ mg/dL Abnormal Negative [facility] Comment on above: Performed By: #### 4 [id number] #### [facility] [address] [place] [address] Ketones Auto test strip Ql (U) Negative Normal Negative [facility] Comment on above: Performed By: #### 4 [id number] #### [facility] [address] [place] [address] Leukocyte esterase Auto test strip Ql (U) 75 Morgan/uL Abnormal Negative [facility] Comment on above: Performed By: #### 4 [id number] #### [facility] [address] [place] [address] Mucus Auto Ql (U) Trace Normal Negative [facility] Comment on above: Performed By: #### 4 [id number] #### [facility] [address] [place] [address] Nitrite Auto test strip Ql (U) Negative Normal Negative [facility] Comment on above: Performed By: #### 4 [id number] #### [facility] [address] [place] [address] pH (U) 5.5 [pH] Invalid Interpretation Code 5.0-9.0 [facility] Comment on above: Performed By: #### 4 [id number] #### [facility] [address] [place] [address] Protein Ql (U) Negative Normal Negative [facility] Comment on above: Performed By: #### 4 [id number] #### [facility] [address] [place] [address] RBC Ql (U) 0-3 Normal 0-3 [facility] Comment on above: Performed By: #### 4 [id number] #### [facility] [address] [place] [place] [id number] Specific gravity (U) [Rel density] 1.021 Invalid Interpretation Code 1.005-1.030 [facility] Comment on above: Performed By: #### 4 [id number] #### [facility] [address] [place] [id number] Urobilinogen (U) [Mass/Vol] Negative Normal Negative [facility] Comment on above: Performed By: #### 4 [id number] #### [facility] [address] [place] [id number] WBC Auto (Urine sed) [#/Area] 0-5 Normal 0-5 [facility] Comment on above: Performed By: #### 4 [id number] #### [facility] [address] [place] [id number] Type of Urine collection method Clean Catch Normal [facility] Comment on above: Performed By: #### 4 [id number] #### [facility] [address] [place] [address] Office Visiton 02-15-2024 Follow-up visit [id number] Arielle Cardoso 1970 F Date Provider Department Center 02/15/2024 [id number] KINCAID [facility] Family History Problem Relation Age of Onset Heart attack Father Family Status - Relation Status Age at Father Level of Service:75214 [place] OFFICE/OUTPATIENT NEW MODERATE MDM 45 MINUTES Normal [facility] ANES POSTPROC EVALon 023 ANES POSTPROC EVAL HNO ID: [id number] Author: Carlota Jeffrey MD Service: ? Author Type: Anesthesiologist Type: Anesthesia Postprocedure Evaluation Filed: 08/25/2023 5:35 PM Note Text: POST ANESTHESIA EVALUATION NOTE : 1970 Procedure Summary Date: 08/25/23 Room / Location: Gastroenterology Anesthesia Start: 1444 Anesthesia Stop: 1552 Procedure: EGD - THERAPEUTIC, EUS, OR TUBE INTERVENTIONS Diagnosis: Gastroparesis (OTHER) Scheduled Providers: Marques Bradley MD; Carlota Jeffrey MD; Daina Mcmillan APRN.ELECTROENCEPHALOGRAM TECHNOLOGIST Responsible Provider: Carlota Jeffrey MD Anesthesia Type: [...] August 25, 2023 TIME: 5:35 PM CSN: [id number] [facility] ANES PRE-OPon 08-25-2023 ANES PRE-OP HNO ID: [id number] Author: Carlota Jeffrey MD Service: ? Author Type: Anesthesiologist Type: Anesthesia Preprocedure Evaluation Filed: 08/25/2023 11:46 AM Note Text: ANESTHESIOLOGY DAY OF SURGERY NOTE : 1970 Procedure Information Date/Time: 08/25/23 1330 Scheduled providers: Marques Bradley MD; Ellis Mayberry DO; Carlota Jeffrey MD; Oliver Torres MD Procedure: EGD - THERAPEUTIC, EUS, [...] August 25, 2023 TIME: 11:46 AM CSN: [id number] [facility] HISTORY PHYSICALon 3 HISTORY PHYSICAL HNO ID: [id number] Author: Gavi Bourgeois MD Service: General Surgery [...] DATE: August 25, 2023 TIME: 6:57 AM [facility] NURSING PROGon 08-25-2023 NURSING PROG HNO ID: [id number] Author: Melody Walter RN Service: Nursing Author [...] None Electronically Signed By: Melody Walter RN [facility] NURSING PROG HNO ID: [id number] Author: Pamela Osuna RN Service: ? Author [...] By: Pamela Navarro RN In Department: GASTR[facility]ENTEROLOGY [facility] CONSTANTINO CARDOSO ([id number]) 1970 F Date Time Provider Department 07/22/23 [...] - Swelling Date Reviewed: 07/22/2023 Reviewed by: Americo Montalvo RD - Fully Assessed Prescriptions as [...] Encounter Status:Closed by EVELYN BLACK on 07/22/23 [facility] ANES POSTPROC EVALon 023 ANES POSTPROC EVAL HNO ID: [id number] Author: Sly Carter MD Service: ? Author [...] Scheduled Providers: Marques Bradley MD; Amanda Bernard APRN.ELECTROENCEPHALOGRAM TECHNOLOGIST; Sly Carter MD Responsible Provider: Sly Carter [...] July 14, 2023 TIME: 12:26 PM CSN: [id number] [facility] ANES PRE-OPon 07-14-2023 ANES PRE-OP HNO ID: [id number] Author: Sly Carter MD Service: ? Author Type: Anesthesiologist Type: Anesthesia Preprocedure Evaluation Filed: 07/14/2023 9:19 AM Note Text: ANESTHESIOLOGY DAY OF SURGERY NOTE : 1970 Procedure Information Date/Time: 07/14/23929 Scheduled providers: Marques Bradley MD; Amanda Bernard APRN.ELECTROENCEPHALOGRAM TECHNOLOGIST; Sly Carter MD Procedure: EGD - THERAPEUTIC, [...] July 14, 2023 TIME: 9:11 AM CSN: [id number] [facility] EGD - THERAPEUTIC, EUS, OR T UBE INTERVENTIONSon 07-14-2023 [facility] HISTORY PHYSICALon HISTORY PHYSICAL HNO ID: [id number] Author: Raúl Quintero MD Service: General Surgery [...] medications for this visit. REVIEW OF SYSTEMS: STUDENT FINANCE ADVISOR: Negative for CVA, Negative for TIA Respiratory: [...] July 14, 2023 TIME: 9:40 AM [facility] NURSING PROGon 07-14-2023 NURSING PROG HNO ID: [id number] Author: Mónica Spaulding RN Service: Nursing Author Type: Registered Nurse Type: Nursing Progress Note Filed: 07/14/2023 11:21 AM Note Text: 1121: Dr. Mehrdad Carter paged : Patient Constantino Cardoso in post bed 10: Complaining of 10/10 abdominal pain (gas), mild nausea. Any further orders? Thanks! Mari Spaulding RN BSN [facility] NURSING PROG HNO ID: [id number] Author: Mónica Spaulding RN Service: Nursing Author [...] Signed By: Mónica Spaulding RN BSN [facility] NURSING PROG HNO ID: [id number] Author: Candace Jaramillo RN Service: ? Author [...] Candace Jaramillo RN In Department: GASTROENTEROLOGY [facility] SURGICAL PATHOLOGYon 023 ADDENDUM 1: [facility] Comment on above: Order Comment: Speci men Type: TISSUE SPECIMENOrdering Facility: [facility] Address: [address] [place] [address] Result Comment: Give n the background of chronic gastritis a Helicobacter pylori immunostain was performed on block A and is negative for Helicobacter pylori organisms. AEB 07/20/2023 Laboratory Developed Test (LDT) Disclaimer: Performance characteristics of immunohistochemical, immunofluorescent and chromogenic in-situ hybridization tests have been determined by the performing laboratory within [facility]???s [facility]ology and Laboratory [facility] [place] ([facility], [facility], [facility], [facility], [facility], [facility], or [facility]) in a manner consistent with CLIA [...] at 9:30 AM Performed By: #### S ####[facility] LABIA [id number] [address] [place] CASE REPORT [facility] Comment on above: Order Comment: Speci men Type: TISSUE SPECIMENOrdering Facility: [facility] Address: [address] [place] [address] Result Comment: [facility] Pathology Report Case: [id number] Authorizing Provider: Marques Bradley MD Collected: 07/14/2023 10:42 AM Ordering Location: Gastroenterology Received: 07/14/2023 07:34 PM Pathologist: Pepper Zacarias MD Specimen: STOMACH BIOPSY, R/O H.Pylori Performed By: #### S ####[facility] LABIA [id number] [address] [place] DIAGNOSIS COMMENT Immunohistochemical stain for Helicobacter pylori is pending and will be reported as an addendum. [facility] Comment on above: Order Comment: Speci men Type: TISSUE SPECIMENOrdering Facility: [facility] Address: [address] [place] [address] Performed By: #### S ####[facility] LABIA [id number] [address] FINAL DIAGNOSIS [facility] Comment on above: Order Comment: Speci men Type: TISSUE SPECIMENOrdering Facility: [facility] Address: [address] [place] [address] Result Comment: Velma scott, biopsy: - Chronic inactive gastritis. See comment. AEB/dkm 07/18/2023 Performed By: #### S ####[facility] LABCLIA [id number] [address] OF [facility] FINAL PERFORMING LAB Normal [facility] Comment on above: Order Comment: Speci men Type: TISSUE SPECIMENOrdering Facility: [facility] Address: [address] [place] [address] Result Comment: Diag nostic interpretation performed at [facility], [address] [place] [address] CLIA# [id number] Weaver Hand: Maurisio Ritchie M.D. Performed By: #### S ####[facility] LABCLIA [id number] [address] STATES OF [facility] GROSS DESCRIPTION Normal [facility] Comment on above: Order Comment: Speci men Type: TISSUE SPECIMENOrdering Facility: [facility] Address: [address] [place] [address] Result Comment: A. S TOMACH BIOPSY Received in formalin are two pieces of hager, soft tissue aggregating to 0.5 x 0.2 x 0.2 cm. Totally submitted in one cassette. Two Gross examination performed at [facility], [address] [place] [address] July 14, 2023 11:10 PM Performed By: #### S ####[facility] LABCLIA [id number] [address] OF [facility] CNPAlayna 05-27-2023 CNPN Telephone (GENBMI) ----- CONSTANTINO CARDOSO ([id number]) 1970 F Date Time Provider Department 05/27/23 EVELYN BLACKJudith During your visit today, we recorded the following information about you: Evelyn Balck RN 05/27/2023 9:45 AM Signed BMI SPECIALTY [...] Status:Closed by EVELYN BLACK on 05/27/23 [facility] NM GASTRIC EMPTYING SOLIDon 05-26-2023 NM [...] RATE OF GASTRIC EMPTYING OF SOLID MEAL. Account Coordinator: PSCB Transcribe Date/Time: May 26 2023 11:18A Dictated by : SILVANO W[place]SH MD This examination was interpreted and the report reviewed and electronically signed by: SILVANO W[place]SH MD on May 26 2023 11:18AM EST [id number] [facility] CNNURSEon 05-25-2023 CNNURSE Nurse Visit (GASTMN) ----- CONSTANTINO CARDOSO ([id number]) 1970 F Date Time Provider Department 05/25/23 8:30 AM NURSE GI LAB 2 GASTMN During your visit today, we recorded the following information about you: Pedro Gonzalez LPN 05/25/2023 4:15 PM Signed Name: Constantino Cardoso CC#: [id number] Date: 05/25/2023 ESOPHAGEAL MANOMETRY TEST Indication: Nausea [...] .Pedro Gonzalez LPN Referring Provider: MARQUES BRADLEY [[id number]] Allergies As of Date: 05/25/2023 Noted Allergy Reaction FLEXERIL (CYCLOBENZAPRINE) 04/28/2018 7 - Swelling PENICILLIN 04/28/2018 7 - Swelling Date Reviewed: 05/06/2023 Reviewed by: Judy Michaels MA - Fully Assessed Reason for Visit: Procedure [88] Cmt: Manometry Esophageal Visit Diagnosis:Nausea [R11.0] Order(s):MANOMETRY ESOPHAGEAL [29379SZY] Order #: [id number] Prescriptions as of 05/25/2023 - dicyclomine (BENTYL) [...] Encounter Status:Closed by PEDRO GONZALEZ on 05/25/23 [facility] Magda 05-16-2023 CNPN Telephone (GENBMI) ----- CONSTANTINO CARDOSO ([id number]) 1970 F Date Time Provider Department 05/16/23 EVELYN BLACK GENTAO During your visit today, [...] Encounter Status:Closed by EVELYN BLACK on 05/16/23 [facility] Yuko 05-06-2023 CNOV Office Visit (GENBMI ) ----- CONSTANTINO CARDOSO ([id number]) 1970 F Date Time Provider Department 05/06/23 [...] for internal providers or letter via the [employer] for external providers. Chief Complaint: [...] Time: 8:15 AM Referring Provider: IMER CHERRY [[id number]] Allergies As of Date: 05/06/2023 Noted Allergy Reaction (more content not included)... Normal [facility] 05-02-2023 CNPN Telephone (GENBMI) ----- CONSTANTINO CARDOOS ([id number]) 1970 F Date Time Provider Department 05/02/23 EVELYN BLACKI During your visit today, we recorded the following information about you: Evelyn Black, RN 05/04/2023 1:55 PM Addendum BMI SPECIALTY CARE COORDINATION TELEPHONE ENCOUNTER Chief complaint AND duration dysphagia. Type of procedure: hernia repair hiatal with Dr. MORTENSEN in [place] February of 2019. Sending OP notes Nursing assessment (subjective/objective) . pain in chest area and getting worse, hard to breathe c/o nausea and oral intolerance, using miralax for BM Went to [place] ED March 2023 who told her she needed a stent in her heart..but her c/o were difficulty swallowing and sent pt home and referred her to [facility] and was admitted for almost a week [...] HHR a year later @ OSH in [place] Recommendation: appt after records obtained, encouraged small [...] Encounter Status:Closed by EVELYN BLACK on [facility]02/23 [facility] (GENBMI) ----- CONSTANTINO CARDOSO ([id number]) 1970 F Date Time Provider Department 04/26/23 [...] Encounter Status:Closed by EVELYN BLACK on 04/26/23 [facility] CNPN Telephone (GENBMI) ----- CONSTANTINO CARDOSO ([id number]) 1970 F Date Time Provider Department 04/18/23 [...] Ma - Fully Assessed 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] Prescriptions as of 04/18/2023 - ciprofloxacin HCl [...] Encounter Status:Closed by EVELYN BLACK on 04/18/23 [facility] Magda 04-07-2023 CNPN Telephone (GASTSP) ----- CONSTANTINO CARDOSO ([id number]) 1970 F Date Time Provider Department 04/07/23 GUILLERMO MARTINEZ [facility] During your visit today, we recorded [...] Encounter Status:Closed by YANCY LOPEZ on 04/07/23 [facility] Alanine aminotransferase [En zymatic activity/volume] in Serum or PlasmaOrdered By: Pete Thakkar on 03-23-2023 ALT [Catalytic activity/Vol] 11 U/L 7-52 [facility] Albumin [Mass/volume] in Ser um or Plasma by Bromocresol green (BCG) dye binding methoOrdered By: Pete Thakkar on 03-23-2023 Albumin BCG dye [Mass/Vol] 4.1 g/dL 3.5-5.7 [facility] Alkaline phosphatase [Enzyma tic activity/volume] in Serum or PlasmaOrdered By: Pete Thakkar on 03-23-2023 ALP [Catalytic activity/Vol] 115 U/L 34-104 [facility] Aspartate aminotransferase [ Enzymatic activity/volume] in Serum or PlasmaOrdered By: Pete Thakkar on 03-23-2023 AST [Catalytic activity/Vol] 15 U/L 13-39 [facility] Automated erythrocytes count in urine sediment (number/area)Ordered By: Pete Thakkar on 03-23-2023 RBC Auto (Urine sed) [#/Area] 0-1 [HPF] 0-4 [facility] Automated leukocytes count i n urine sediment (number/area)Ordered By: Pete Thakkar on 03-23-2023 WBC Auto (Urine sed) [#/Area] 0-1 [HPF] 0-4 [facility] Basophils Auto (Bld) [#/Vol] Ordered By: Pete Thakkar on 03-23-2023 Basophils (Bld) [#/Vol] 0.1 10*3/uL 0.0-0.2 [facility] Basophils/100 WBC Auto (Bld) Ordered By: Pete Thakkar on 03-23-2023 Basophils/100 WBC (Bld) 1.0 % . [facility] Bilirubin Test strip Ql (U)O rdered By: Pete Thakkar on 03-23-2023 Bilirubin Ql (U) Negative Negative [facility] Bilirubin.direct [Mass/volum e] in Serum or PlasmaOrdered By: Pete Thakkar on 03-23-2023 Bilirubin.direct [Mass/Vol] 0.10 mg/dL 0.03-0.18 [facility] Bilirubin.total [Mass/volume ] in Serum or PlasmaOrdered By: Pete Thakkar on 03-23-2023 Bilirubin [Mass/Vol] 0.3 mg/dL 0.3-1.0 [facility] Calcium [Mass/volume] in Ser um or PlasmaOrdered By: Pete Thakkar on 03-23-2023 Calcium [Mass/Vol] 9.0 mg/dL 8.6-10.3 [facility] Carbon dioxide, total [Moles /volume] in Serum or PlasmaOrdered By: Pete Thakkar on 03-23-2023 CO2 [Moles/Vol] 24.5 mmol/L 21.0-31.0 [facility] Chloride [Moles/volume] in S cristine or PlasmaOrdered By: Pete Thakkar on 03-23-2023 Chloride [Moles/Vol] 111 mmol/L 98-107 [facility] Color Auto (U)Ordered By: Shoaib Thakkar on 03-23-2023 Color (U) Yellow Yellow [facility] Creatinine [Mass/volume] in Serum or PlasmaOrdered By: Pete Thakkar on 03-23-2023 Creatinine [Mass/Vol] 0.72 mg/dL 0.60-1.20 [facility] Eosinophils Auto (Bld) [#/Vo l]Ordered By: Pete Thakkar on 03-23-2023 Eosinophils (Bld) [#/Vol] 0.3 10*3/uL 0.0-0.45 [facility] Eosinophils/100 WBC Auto (Bl d)Ordered By: Pete Thakkar on 03-23-2023 Eosinophils/100 WBC (Bld) 5.0 % . [facility] Erythrocyte distribution wid th Auto (RBC) [Ratio]Ordered By: Pete Thakkar on 03-23-2023 Erythrocyte distribution width (RBC) [Ratio] 13.6 % 11.9-15.3 [facility] Globulin Calc (S) [Mass/Vol] Ordered By: Pete Thakkar on 03-23-2023 Globulin (S) [Mass/Vol] 2.9 g/dL [facility] Glucose [Mass/volume] in Ser um or PlasmaOrdered By: Pete Thakkar on 03-23-2023 Glucose [Mass/Vol] 79 mg/dL 70-100 [facility] Comment on above: ADA recommended refe rence rangeRandom Glucose Reference Range is dependent on time and content of last meal. Glucose of more than 200 mg/dL in a nonstressed, ambulatory subject supports the diagnosis of Diabetes Mellitus. Hematocrit Auto (Bld) [Volum e fraction]Ordered By: Pete Thakkar on 03-23-2023 Hematocrit (Bld) [Volume fraction] 35.7 % 34.0-46.4 [facility] Hemoglobin [Mass/volume] in BloodOrdered By: Pete Thakkar on 03-23-2023 Hemoglobin (Bld) [Mass/Vol] 12.0 g/dL 11.8-15.4 [facility] Ketones Auto test strip (U) [Mass/Vol]Ordered By: Pete Thakkar on 03-23-2023 Ketones (U) [Mass/Vol] Negative Negative [facility] Laboratory - UrinalysisOrder ed By: Pete Thakkar on 03-23-2023 Hyaline casts LM Ql (Urine sed) None seen [LPF] 0-8 [facility] Leukocytes [#/volume] correc jun for nucleated erythrocytes in Blood by Automated counOrdered By: Pete Thakkar on 03-23-2023 WBC corrected for nucl RBC Auto (Bld) [#/Vol] 6.3 10*3/uL 3.8-11.6 [facility] Lipase [Enzymatic activity/v olume] in Serum or PlasmaOrdered By: Pete Thakkar on 03-23-2023 Lipase [Catalytic activity/Vol] 32.0 U/L 11.0-82.0 [facility] Lymphocytes Auto (Bld) [#/Vo l]Ordered By: Pete Thakkar on 03-23-2023 Lymphocytes (Bld) [#/Vol] 2.3 10*3/uL 1.00-4.8 [facility] Lymphocytes/100 WBC Auto (Bl d)Ordered By: Pete Thakkar on 03-23-2023 Lymphocytes/100 WBC (Bld) 36.1 % . [facility] MCH Auto (RBC) [Entitic mass ]Ordered By: Pete Thakkar on 03-23-2023 MCH (RBC) [Entitic mass] 29.2 pg 24.7-34.3 [facility] MCHC Auto (RBC) [Mass/Vol]Or dered By: Pete Thakkar on 03-23-2023 MCHC (RBC) [Mass/Vol] 33.7 g/dL 32.0-35.0 [facility] MCV Auto (RBC) [Entitic vol] Ordered By: Pete Thakkar on 03-23-2023 MCV (RBC) [Entitic vol] 86.7 fL 80-100 [facility] Monocyte distribution width [Entitic volume] in Blood by AutomatedOrdered By: Pete Thakkar on 03-23-2023 Monocyte distribution width Auto (Bld) [Entitic vol] 16.44 % 0.00-20.00 [facility] Monocytes Auto (Bld) [#/Vol] Ordered By: Pete Thakkar on 03-23-2023 Monocytes (Bld) [#/Vol] 0.5 10*3/uL 0.0-0.8 [facility] Monocytes/100 WBC Auto (Bld) Ordered By: Pete Thakkar on 03-23-2023 Monocytes/100 WBC (Bld) 7.7 % . [facility] Neutrophils Auto (Bld) [#/Vo l]Ordered By: Pete Thakkar on 03-23-2023 Neutrophils (Bld) [#/Vol] 3.2 10*3/uL 1.8-7.7 [facility] Neutrophils/100 WBC Auto (Bl d)Ordered By: Pete Thakkar on 03-23-2023 Neutrophils/100 WBC (Bld) 50.2 % . [facility] Nitrite Test strip Ql (U)Ord ered By: Pete Thakkar on 03-23-2023 Nitrite Ql (U) Negative Negative [facility] No Panel InformationOrdered By: Pete Thakkar on 03-23-2023 Estimated GFR (CKD-EPI) > 60.0 mL/Min [facility] Creatinine Clearance (Chem 105.27 [facility] Nucleated erythrocytes [Pres ence] in Blood by Automated countOrdered By: Pete Thakkar on 03-23-2023 Nucleated RBC Auto Ql (Bld) 0.1 /100{WBC} 0-0.5 [facility] Platelet mean volume Auto (B ld) [Entitic vol]Ordered By: Pete Thakkar on 03-23-2023 Platelet mean volume (Bld) [Entitic vol] 7.6 fL 6.3-10.7 [facility] Platelets Auto (Bld) [#/Vol] Ordered By: Pete Thakkar on 03-23-2023 Platelets (Bld) [#/Vol] 357 10*3/uL 150-450 [facility] Potassium [Moles/volume] in Serum or PlasmaOrdered By: Pete Thakkar on 03-23-2023 Potassium [Moles/Vol] 3.6 mmol/L 3.5-5.1 [facility] Protein Auto test strip (U) [Mass/Vol]Ordered By: Pete Thakkar on 03-23-2023 Protein (U) [Mass/Vol] Negative Negative [facility] Protein [Mass/volume] in Ser um or PlasmaOrdered By: Pete Thakkar on 03-23-2023 Protein [Mass/Vol] 7.0 g/dL 6.4-8.9 [facility] RBC Auto (Bld) [#/Vol]Ordere d By: Pete Thakkar on 03-23-2023 RBC (Bld) [#/Vol] 4.12 10*6/uL 3.60-5.00 [facility] Serum or plasma albumin/glob ulin mass ratioOrdered By: Pete Thakkar on 03-23-2023 Albumin/Globulin [Mass ratio] 1.4 {ratio} [facility] Serum or plasma anion gap de terminationOrdered By: Pete Thakkar on 03-23-2023 Anion gap [Moles/Vol] 10.1 mmol/L 6.0-15.0 [facility] Serum or plasma non-glucuron idated bilirubin measurement (mass/volume)Ordered By: Pete Thakkar on 03-23-2023 Bilirubin.indirect [Mass/Vol] 0.2 mg/dL [facility] Sodium [Moles/volume] in Ser um or PlasmaOrdered By: Pete Thakkar on 03-23-2023 Sodium [Moles/Vol] 142 mmol/L 136-145 [facility] Specific gravity Auto test s trip (U) [Rel density]Ordered By: Pete Thakkar on 03-23-2023 Specific gravity (U) [Rel density] 1.048 1.001-1.030 [facility] Squamous epithelial cells de tection in urine sediment by light microscopyOrdered By: Pete Thakkar on 03-23-2023 Epithelial cells.squamous LM Ql (Urine sed) None seen [HPF] 0-2 [facility] Troponin I.cardiac [Mass/vol ume] in Serum or Plasma by Detection limit <= 0.01 ng/Ordered By: Pete Thakkar on 03-23-2023 Troponin I.cardiac DL <= 0.01 ng/mL [Mass/Vol] 12.2 pg/mL 0.0-15.0 [facility] Urea nitrogen [Mass/volume] in Serum or PlasmaOrdered By: Pete Thakkar on 03-23-2023 Urea nitrogen [Mass/Vol] 24 mg/dL 7-25 [facility] Urine bacteria detection by automated methodOrdered By: Pete Thakkar on 03-23-2023 Bacteria Auto Ql (U) 1+ None Seen [facility] Urine clarity by refractomet ry automatedOrdered By: Pete Thakkar on 03-23-2023 Clarity Refractometry automated (U) Clear Clear [facility] Urine glucose measurement by automated test strip (mass/volume)Ordered By: Pete Thakkar on 03-23-2023 Glucose Auto test strip (U) [Mass/Vol] Normal mg/dL Normal [facility] Urine hemoglobin detection b y automated test stripOrdered By: Pete Thakkar on 03-23-2023 Hemoglobin Auto test strip Ql (U) Trace Negative [facility] Urine leukocyte esterase det ection by automated test stripOrdered By: Pete Thakkar on 03-23-2023 Leukocyte esterase Auto test strip Ql (U) Negative Negative [facility] Urobilinogen Auto test strip (U) [Mass/Vol]Ordered By: Pete Thakkar on 03-23-2023 Urobilinogen (U) [Mass/Vol] Normal mg/dL Normal [facility] WBC Auto (Bld) [#/Vol]Ordere d By: Pete Thakkar on 03-23-2023 WBC (Bld) [#/Vol] 6.3 10*3/uL 3.8-11.6 [facility] pH Auto test strip (U)Ordere d By: Pete Thakkar on 03-23-2023 pH (U) 5.0 [pH] 5.0-9.0 [facility] Activated partial thrombopla stin time (aPTT) in platelet poor plasma by coagulation aOrdered By: Conner Griffith on 02-15-2023 aPTT Coag (PPP) [Time] 37.0 s 25.1-36.5 [facility] Alanine aminotransferase [En zymatic activity/volume] in Serum or PlasmaOrdered By: Conner Griffith on 02-15-2023 ALT [Catalytic activity/Vol] 13 U/L 7-52 [facility] Albumin [Mass/volume] in Ser um or Plasma by Bromocresol green (BCG) dye binding methoOrdered By: Conner Griffith on 02-15-2023 Albumin BCG dye [Mass/Vol] 4.3 g/dL 3.5-5.7 [facility] Alkaline phosphatase [Enzyma tic activity/volume] in Serum or PlasmaOrdered By: Conner Griffith on 02-15-2023 ALP [Catalytic activity/Vol] 124 U/L 34-104 [facility] Aspartate aminotransferase [ Enzymatic activity/volume] in Serum or PlasmaOrdered By: Conner Griffith on 02-15-2023 AST [Catalytic activity/Vol] 15 U/L 13-39 [facility] Basophils Auto (Bld) [#/Vol] Ordered By: Conner Griffith on 02-15-2023 Basophils (Bld) [#/Vol] 0.0 10*3/uL 0.0-0.2 [facility] Basophils/100 WBC Auto (Bld) Ordered By: Conner Griffith on 02-15-2023 Basophils/100 WBC (Bld) 0.6 % . [facility] Bilirubin.direct [Mass/volum e] in Serum or PlasmaOrdered By: Conner Griffith on 02-15-2023 Bilirubin.direct [Mass/Vol] 0.00 mg/dL 0.03-0.18 [facility] Comment on above: If the DBIL is less than 0.1, IBIL is not able to becalculated. Bilirubin.total [Mass/volume ] in Serum or PlasmaOrdered By: Conner Griffith on 02-15-2023 Bilirubin [Mass/Vol] 0.4 mg/dL 0.3-1.0 [facility] Calcium [Mass/volume] in Ser um or PlasmaOrdered By: Conner Griffith on 02-15-2023 Calcium [Mass/Vol] 9.3 mg/dL 8.6-10.3 [facility] Carbon dioxide, total [Moles /volume] in Serum or PlasmaOrdered By: Conner Griffith on 02-15-2023 CO2 [Moles/Vol] 25.3 mmol/L 21.0-31.0 [facility] [facility] Chloride [Moles/volume] in S cristine or PlasmaOrdered By: Conner Griffith on 02-15-2023 Chloride [Moles/Vol] 106 mmol/L 98-107 [facility] Creatinine [Mass/volume] in Serum or PlasmaOrdered By: Conner Griffith on 02-15-2023 Creatinine [Mass/Vol] 0.77 mg/dL 0.60-1.20 [facility] Eosinophils Auto (Bld) [#/Vo l]Ordered By: Conner Griffith on 02-15-2023 Eosinophils (Bld) [#/Vol] 0.2 10*3/uL 0.0-0.45 [facility] Eosinophils/100 WBC Auto (Bl d)Ordered By: Conner Griffith on 02-15-2023 Eosinophils/100 WBC (Bld) 4.0 % . [facility] Erythrocyte distribution wid th Auto (RBC) [Ratio]Ordered By: Conner Griffith on 02-15-2023 Erythrocyte distribution width (RBC) [Ratio] 13.5 % 11.9-15.3 [facility] Globulin Calc (S) [Mass/Vol] Ordered By: Conner Griffith on 02-15-2023 Globulin (S) [Mass/Vol] 3.0 g/dL [facility] Glucose [Mass/volume] in Ser um or PlasmaOrdered By: Conner Griffith on 02-15-2023 Glucose [Mass/Vol] 94 mg/dL 70-100 [facility] Comment on above: ADA recommended refe rence rangeRandom Glucose Reference Range is dependent on time and content of last meal. Glucose of more than 200 mg/dL in a nonstressed, ambulatory subject supports the diagnosis of Diabetes Mellitus. Hematocrit Auto (Bld) [Volum e fraction]Ordered By: Conner Griffith on 02-15-2023 Hematocrit (Bld) [Volume fraction] 38.4 % 34.0-46.4 [facility] Hemoglobin [Mass/volume] in BloodOrdered By: Conner Griffith on 02-15-2023 Hemoglobin (Bld) [Mass/Vol] 13.0 g/dL 11.8-15.4 [facility] Laboratory - CoagulationOrde red By: Conner Griffith on 02-15-2023 PT Coag (PPP) [Time] 11.7 s 9.0-12.9 [facility] Leukocytes [#/volume] correc jun for nucleated erythrocytes in Blood by Automated counOrdered By: Conner Griffith on 02-15-2023 WBC corrected for nucl RBC Auto (Bld) [#/Vol] 5.2 10*3/uL 3.8-11.6 [facility] Lipase [Enzymatic activity/v olume] in Serum or PlasmaOrdered By: Conner Griffith on 02-15-2023 Lipase [Catalytic activity/Vol] 19.0 U/L 11.0-82.0 [facility] Lymphocytes Auto (Bld) [#/Vo l]Ordered By: Conner Griffith on 02-15-2023 Lymphocytes (Bld) [#/Vol] 1.8 10*3/uL 1.00-4.8 [facility] Lymphocytes/100 WBC Auto (Bl d)Ordered By: Conner Griffith on 02-15-2023 Lymphocytes/100 WBC (Bld) 33.8 % . [facility] MCH Auto (RBC) [Entitic mass ]Ordered By: Conner Griffith on 02-15-2023 MCH (RBC) [Entitic mass] 29.4 pg 24.7-34.3 [facility] MCHC Auto (RBC) [Mass/Vol]Or dered By: Conner Griffith on 02-15-2023 MCHC (RBC) [Mass/Vol] 33.8 g/dL 32.0-35.0 [facility] MCV Auto (RBC) [Entitic vol] Ordered By: Conner Griffith on 02-15-2023 MCV (RBC) [Entitic vol] 86.8 fL 80-100 [facility] Monocyte distribution width [Entitic volume] in Blood by AutomatedOrdered By: Conner Griffith on 02-15-2023 Monocyte distribution width Auto (Bld) [Entitic vol] 18.21 % 0.00-20.00 [facility] Monocytes Auto (Bld) [#/Vol] Ordered By: Conner Griffith on 02-15-2023 Monocytes (Bld) [#/Vol] 0.3 10*3/uL 0.0-0.8 [facility] Monocytes/100 WBC Auto (Bld) Ordered By: Conner Griffith on 02-15-2023 Monocytes/100 WBC (Bld) 4.8 % . [facility] Neutrophils Auto (Bld) [#/Vo l]Ordered By: Conner Griffith on 02-15-2023 Neutrophils (Bld) [#/Vol] 3.0 10*3/uL 1.8-7.7 [facility] Neutrophils/100 WBC Auto (Bl d)Ordered By: Conner Griffith on 02-15-2023 Neutrophils/100 WBC (Bld) 56.8 % . [facility] No Panel InformationOrdered By: Conner Griffith on 02-15-2023 Estimated GFR (CKD-EPI) > 60.0 mL/Min [facility] Creatinine Clearance (Chem 98.01 [facility] Nucleated erythrocytes [Pres ence] in Blood by Automated countOrdered By: Conner Griffith on 02-15-2023 Nucleated RBC Auto Ql (Bld) 0.2 /100{WBC} 0-0.5 [facility] Platelet mean volume Auto (B ld) [Entitic vol]Ordered By: Conner Griffith on 02-15-2023 Platelet mean volume (Bld) [Entitic vol] 7.3 fL 6.3-10.7 [facility] Platelet poor plasma interna tional normalized ratio (INR) by coagulation assay (relatOrdered By: Conner Griffith on 02-15-2023 INR Coag (PPP) [Relative time] 1.0 {INR} [facility] Comment on above: INR Therapeutic Rang [...] 02-15-2023 Platelets (Bld) [#/Vol] 385 10*3/uL 150-450 [facility] Potassium [Moles/volume] in Serum or PlasmaOrdered By: Conner Griffith on 02-15-2023 Potassium [Moles/Vol] 3.9 mmol/L 3.5-5.1 [facility] Protein [Mass/volume] in Ser um or PlasmaOrdered By: Conner Griffith on 02-15-2023 Protein [Mass/Vol] 7.3 g/dL 6.4-8.9 [facility] RBC Auto (Bld) [#/Vol]Ordere d By: Conner Griffith on 02-15-2023 RBC (Bld) [#/Vol] 4.43 10*6/uL 3.60-5.00 [facility] Serum or plasma albumin/glob ulin mass ratioOrdered By: Conner Griffith on 02-15-2023 Albumin/Globulin [Mass ratio] 1.4 {ratio} [facility] Serum or plasma anion gap de terminationOrdered By: Conner Griffith on 02-15-2023 Anion gap [Moles/Vol] 12.6 mmol/L 6.0-15.0 [facility] Serum or plasma non-glucuron idated bilirubin measurement (mass/volume)Ordered By: Conner Griffith on 02-15-2023 Bilirubin.indirect [Mass/Vol] 0.4 mg/dL [facility] Sodium [Moles/volume] in Ser um or PlasmaOrdered By: Conner Griffith on 02-15-2023 Sodium [Moles/Vol] 140 mmol/L 136-145 [facility] Urea nitrogen [Mass/volume] in Serum or PlasmaOrdered By: Conner Griffith on 02-15-2023 Urea nitrogen [Mass/Vol] 14 mg/dL 7-25 [facility] WBC Auto (Bld) [#/Vol]Ordere d By: Conner Griffith on 02-15-2023 WBC (Bld) [#/Vol] 5.2 10*3/uL 3.8-11.6 [facility] MG MAMM SCREEN 3D MACARIO CADon 11-30-2022 MG MAMM SCREEN 3D MACARIO CAD Normal [facility] ER URINE PROFILEon Bilirubin Ql (U) Negative Normal NEGATIVE [facility] Comment on above: Performed By: #### E RUR ####[facility] Fgofddlplr[address] [place], [place] [address]Dr. Tadeo Smyth Clarity (U) CLEAR Normal CLEAR [facility] Comment on above: Performed By: #### E RUR ####[facility] V[address]cwxcgnn[address] [place], [place] [address]Dr. Tadeo Smyth Color (U) YELLOW Normal YELLOW [facility] Comment on above: Performed By: #### E RUR ####[facility] Oayphsnlcr[address] [place], [place] [address]Dr. Tadeo Smyth ERUAHD A micrscopic examina tion will be performed if indicated. Normal [facility] Comment on above: Performed By: #### E RUR ####[facility] Jyatfzdiuk[address] [place], [place] [address]Dr. Tadeo Smyth Glucose Ql (U) Negative Normal NEGATIVE [facility] Comment on above: Performed By: #### E RUR ####[facility] Lzynwzvymp[address] [place], [place] [address]Dr. Tadeo Smyth Hemoglobin Ql (U) TRACE-INTACT Abnormal NEGATIVE [facility] Comment on above: Performed By: #### E RUR ####[facility] Bkzsh[address]fpq[address] [place], [place] [address]Dr. Tadeo Smyth Ketones Ql (U) Negative Normal NEGATIVE [facility] Comment on above: Performed By: #### E RUR ####[facility] Flmcdsapze3104[address] [place], [place] [address]Dr. Tadeo Smyth LEUKOCYTES Negative Normal NEGATIVE [facility] Comment on above: Performed By: #### E RUR ####[facility] [address] [place] [address]Dr. Tadeo Smyth Nitrite Ql (U) Negative Normal NEGATIVE [facility] Comment on above: Performed By: #### E RUR ####[facility] [address]hwjmk[address] [place] [address]Dr. Tadeo Smyth pH (U) 6.0 [pH] Normal 5-9 [facility] Comment on above: Performed By: #### E RUR ####[facility] Kwzaokwsgg[address] [place], [place] [address]Dr. Tadeo Smyth SPEC GRAVITY >=1.030 Abnormal 1.005-<=1.0 25 [facility] Comment on above: Performed By: #### E RUR ####[facility] Nsvwqblkuh348[address] [place], [place] [address]Dr. Tadeo Smyth UA PROTEIN Negative Normal NEGATIVE/ TRACE [facility] Comment on above: Performed By: #### E RUR ####[facility] Qlxmjnvbnd22[address] [place], [place] [address]Dr. Tadeo Smyth UR MICRO IND NOT INDICATED Normal [facility] Comment on above: Performed By: #### E RUR ####[facility] Jftmvajjzq12[address] [place], [place] [address]Dr. Tadeo Smyth Urobilinogen Qn (U) 0.2 {Benito'U}/dL Normal 0.2 - 1. 0 [facility] Comment on above: Performed By: #### E RUR ####[facility] Zuqynsrvkm994[address] [place], [place] [address]Dr. Tadeo Smyth XR ABD FLAT UP_PA Kasey 11-28 XR ABD FLAT UP_PA CH Normal [facility] AMYLASEon 11-27-2022 Amylase [Catalytic activity/Vol] 63 U/L Normal 25-115 [facility] Comment on above: Performed By: #### L IPA, VIJI, CMP ####[facility] Lvyawavrvl[address] [place], [place] [address]Dr. Tadeo Haja CBC AUTO DIFFon 11-27-2022 BASO # 0.0 103/ul Normal 0.0-0.1 [facility] Comment on above: Performed By: #### C BC ####[facility] Lbvpjmaxwd[address] [place] [address]Dr. Tadeo Smyth Basophils/100 WBC (Bld) 0.4 % Normal 0.2-2.0 [facility] Comment on above: Performed By: #### C BC ####[facility] Mlplbinfpn8[address] [place], [place] [address]Dr. Tadeo Smyth EO # 0.2 103/ul Normal 0.0-0.7 [facility] Comment on above: Performed By: #### C BC ####[facility] Weyyumyvtd[address] [place], [place] [address]Dr. Tadeo Smyth Eosinophils/100 WBC (Bld) 2.8 % Normal 0.9-7.0 [facility] Comment on above: Performed By: #### C BC ####[facility] Qrtugpewvb[address]25[address] [place], [place] [address]Dr. Tadeo Smyth Erythrocyte distribution width (RBC) [Ratio] 13.2 % Normal 11.0-15.0 [facility] Comment on above: Performed By: #### C BC ####[facility] P[address]zijthpug[address] [place], [place] [address]Dr. Tadeo Smyth Hematocrit (Bld) [Volume fraction] 42.6 % Normal 36.0-48.0 [facility] Comment on above: Performed By: #### C BC ####[facility] Fwhbvvdoyb[address] [place], [place] [address]Dr. Tadeo Smyth Hemoglobin (Bld) [Mass/Vol] 13.6 g/dL Normal 12.0-16.0 [facility] Comment on above: Performed By: #### C BC ####[facility] Ckzjyxzzpg[address] [place], [place] [address]Dr. Tadeo Smyth IG # 0.02 10e3/ul Normal 0.00-0.03 [facility] Comment on above: Performed By: #### C BC ####[facility] Urpifvlfke[address] [place], [place] [address]Dr. Tadeo Smyth IG % 0.3 % Normal 0.0-0.5 [facility] Comment on above: Performed By: #### C BC ####[facility] N[address]qktfniz[address] [place] [address]DrNeo Smyth LYMPH # 2.2 103/ul Normal 1.2-3.8 [facility] Comment on above: Performed By: #### C BC ####[facility] Htdtpyzjca[address] [place] [address]DrNeo Smyth Lymphocytes/100 WBC (Bld) 32.1 % Normal 20.5-60.0 [facility] Comment on above: Performed By: #### C BC ####[facility] K[address]fwtk[address] [place], [place] [address]DrNeo Smyth MANUAL DIFF REQ NO Normal [facility] Comment on above: Performed By: #### C BC ####[facility] Vkvvgvyvwa[address] [place], [place] [address]DrNeo Smyth MCH (RBC) [Entitic mass] 29.6 pg Normal 26.7-34.0 [facility] Comment on above: Performed By: #### C BC ####[facility] Wormpbmixf[address] [place], [place] [address]DrNeo Smyth MCHC (RBC) [Mass/Vol] 31.9 g/dL Normal 29.9-35.2 [facility] Comment on above: Performed By: #### C BC ####[facility] Fombyavnys[address] [place], [place] [address]DrNeo Smyth MCV (RBC) [Entitic vol] 92.6 fL Normal 81.0-99.0 [facility] Comment on above: Performed By: #### C BC ####[facility] [address] [place], [place] [address]DrNeo Smyth MONO # 0.2 103/ul Critically low 0.3-0.8 [facility] Comment on above: Performed By: #### C BC ####[facility] Pjfzswun[address] [place], [place] [address]DrNeo Smyth Monocytes/100 WBC (Bld) 3.2 % Normal 1.7-12.0 [facility] Comment on above: Performed By: #### C BC ####[facility] [address]kerx[address] [place] [address]Dr. Tadeo Smyth NEUT # 4.2 103/ul Normal 1.4-6.5 [facility] Comment on above: Performed By: #### C BC ####[facility] Ir[address]vs[address] [place] [address]DrNeo Tadeo Haja Neutrophils/100 WBC (Bld) 61.2 % Normal 43.0-75.0 [facility] Comment on above: Performed By: #### C BC ####[facility] Hlljauagod[address]65 [place] [address]DrNeo Smyth Platelet mean volume (Bld) [Entitic vol] 9.0 fL Critically low 9.5-13.5 [facility] Comment on above: Performed By: #### C BC ####[facility] L[address]xjyq[address] [place], [place] [address]Dr. Tadeo Haja PLT 392 103/ul Normal 150-450 [facility] Comment on above: Performed By: #### C BC ####[facility] Tkwbiuyfcf[address] [place], [place] [address]DrNeo Smyth RBC 4.60 106/ul Normal 4.20-5.40 [facility] Comment on above: Performed By: #### C BC ####[facility] W[address]bs[address]kmen[address] [place] [address]DrNeo Smyth WBC 6.9 103/ul Normal 4.0-11.0 [facility] Comment on above: Performed By: #### C BC ####[facility] [address]sxyph[address] [place], [place] [address]DrNeo Smyth LIPASEon 11-27-2022 Lipase [Catalytic activity/Vol] 100.0 U/L Normal 73.0-393.0 [facility] Comment on above: Performed By: #### L IPA, VIJI, CMP ####[facility] Mtauodscgy[address] [place], [place] [address]Dr. Tadeo Smyth PROF 14(COMP METB)on 023 Albumin [Mass/Vol] 3.5 g/dL Normal 3.4-5.0 [facility] Comment on above: Performed By: #### L VIJI HALL, CMP ####[facility] [address] [place] [id number]. Tadeo Smyth Albumin/Globulin [Mass ratio] 0.9 {ratio} Normal [facility] Comment on above: Performed By: #### L VIJI HALL, CMP ####[facility] [address]clklm[address] [place] [id number]. Tadeo Smyth ALP [Catalytic activity/Vol] 166 U/L Critically high 46-116 [facility] Comment on above: Performed By: #### L VIJI HALL, CMP ####[facility] Ones[address]swzj6[address] [place] [address]Dr. Tadeo Smyth ALT [Catalytic activity/Vol] 25 U/L Normal 14-59 [facility] Comment on above: Performed By: #### L VIJI HALL, CMP ####[facility] H[address]ccunifns[address] [place] [address]Dr. Tadeo Smyth Anion gap [Moles/Vol] 12.4 mmol/L Normal [facility] Comment on above: Performed By: #### L VIJI HALL, CMP ####[facility] Pefxjmimqt11[address] [place] [phone]. Tadeo Smyth AST [Catalytic activity/Vol] 18 U/L Normal 15-37 [facility] Comment on above: Performed By: #### L VIJI HALL, CMP ####[facility] Y[address]xezvoqag7477 [place] [address]Dr. Tadeo Smyth Bilirubin [Mass/Vol] 0.3 mg/dL Normal 0.2-1.0 [facility] Comment on above: Performed By: #### L VIJI HALL, CMP ####[facility] [address]xf[address] [place] [address]Dr. Tadeo Smyth Calcium [Mass/Vol] 9.1 mg/dL Normal 8.5-10.1 [facility] Comment on above: Performed By: #### L VIJI HALL, CMP ####[facility] T[address]fqstjid[address] [place] [address]Dr. Tadeo Smyth Chloride [Moles/Vol] 104 mmol/L Normal 98-107 [facility] Comment on above: Performed By: #### L VIJI HALL, CMP ####[facility] Z[address]xqfaqvs6716 [place] [address]Dr. Tadeo Smyth CO2 [Moles/Vol] 25.0 mmol/L Normal 21.0-32.0 [facility] Comment on above: Performed By: #### L VIJI HALL, CMP ####[facility] Ist[address]foob[address] [place], [place] [address]Dr. Tadeo mSyth Creatinine [Mass/Vol] 0.87 mg/dL Normal 0.55-1.02 [facility] Comment on above: Performed By: #### L VIJI HALL, CMP ####[facility] Qwompplvaf[address] [place], [place] [address]Dr. Tdaeo Smyth EGFR-AF PRYDEINIG >60 Normal >=60 [facility] Comment on above: Performed By: #### L VIJI HALL, CMP ####[facility] Ftexchrbca[address] [place], [place] [address]Dr. Tadeo Smyth EGFR-NON AF PRYDEINIG >60 Normal >=60 [facility] Comment on above: Performed By: #### L VIJI HALL, CMP ####[facility] [address]htjsdm[address] [place], [place] [address]Dr. Tadeo Smyth Globulin (S) [Mass/Vol] 3.9 g/dL Normal [facility] Comment on above: Performed By: #### L VIJI HALL, CMP ####[facility] Vs[address]zqrkbz[address] [place] [address]Dr. Tadeo Smyth Glucose [Mass/Vol] 169 mg/dL Critically high 74-106 [facility] Comment on above: Performed By: #### L VIJI HALL, CMP ####[facility] Ycyoyebmja6485 [place] [address]Dr. Tadeo Smyth Potassium [Moles/Vol] 3.4 mmol/L Critically low 3.5-5.1 [facility] Comment on above: Performed By: #### L IPA, VIJI, CMP ####[facility] Urcuydoqge232[address] [place] [address]Dr. Tadeo Smyth Protein [Mass/Vol] 7.4 g/dL Normal 6.4-8.2 [facility] Comment on above: Performed By: #### L IPA, VIJI, CMP ####[facility] Cysqyxvtde[address] [place], [place] [address]Dr. Tadeo Smyth Sodium [Moles/Vol] 138 mmol/L Normal 136-145 [facility] Comment on above: Performed By: #### L IPA, VIJI, CMP ####[facility] Fsjymhibac[address] [place], [place] [address]Dr. Tadeo Smyth Urea nitrogen [Mass/Vol] 23.0 mg/dL Critically high 7.0-18.0 [facility] Comment on above: Performed By: #### L IPA VIJI, CMP ####[facility] Njneyjjrgp[address] [place], [place] [address]Dr. Tadeo Smyth Urea nitrogen/Creatinine [Mass ratio] 26.4 mg/mg Normal [facility] Comment on above: Performed By: #### L IPA VIJI, CMP ####[facility] Ywebabkvue[address] [place], [place] [address]Dr. Tadeo Smyth AMYLASEon 11-02-2022 Amylase [Catalytic activity/Vol] 40 U/L Normal 25-115 [facility] Comment on above: Performed By: #### L IPA, MG, CMP, VIJI ####[facility] Qtohkygask4[address] [place], [place] [address]Dr. Tadeo Smyth CBC AUTO DIFFon 11-02-2022 BASO # 0.0 103/ul Normal 0.0-0.1 [facility] Comment on above: Performed By: #### C BC ####[facility] Lndwrgklzp[address] [place], [place] [address]Dr. Tadeo Smyth Basophils/100 WBC (Bld) 0.5 % Normal 0.2-2.0 [facility] Comment on above: Performed By: #### C BC ####[facility] [address]kw[address]jz[address] [place] [id number]. Tadeo Smyth EO # 0.1 103/ul Normal 0.0-0.7 [facility] Comment on above: Performed By: #### C BC ####[facility] Pmozzdyutu1876 [place] [phone]. Tadeo Smyth Eosinophils/100 WBC (Bld) 2.8 % Normal 0.9-7.0 [facility] Comment on above: Performed By: #### C BC ####[facility] Jrpfkzavka8[address] [place], [place] [address]Dr. Tadeo Smyth Erythrocyte distribution width (RBC) [Ratio] 13.3 % Normal 11.0-15.0 [facility] Comment on above: Performed By: #### C BC ####[facility] [address]ouesadel[address] [place], [place] [address]Dr. Tadeo Smyth Hematocrit (Bld) [Volume fraction] 35.6 % Critically low 36.0-48.0 [facility] Comment on above: Performed By: #### C BC ####[facility] Ktkg[address]vugg[address] [place], [place] [address]Dr. Tadeo Smyth Hemoglobin (Bld) [Mass/Vol] 11.3 g/dL Critically low 12.0-16.0 [facility] Comment on above: Performed By: #### C BC ####[facility] [address]fqdeiq[address] [place], [place] [address]Dr. Tadeo Smyth IG # 0.01 10e3/ul Normal 0.00-0.03 [facility] Comment on above: Performed By: #### C BC ####[facility] [address]ajumxkedw[address] [place], [place] [address]Dr. Tadeo Smyth IG % 0.2 % Normal 0.0-0.5 [facility] Comment on above: Performed By: #### C BC ####[facility] Dwtxwdsavj[address] [place], [place] [address]Dr. Tadeo Smyth LYMPH # 1.5 103/ul Normal 1.2-3.8 [facility] Comment on above: Performed By: #### C BC ####[facility] [address]mmsvxvft6[address] [place] [phone]. Tadeo Smyth Lymphocytes/100 WBC (Bld) 34.9 % Normal 20.5-60.0 [facility] Comment on above: Performed By: #### C BC ####[facility] Zatlwgrefv6472 [place] [phone]. Margotnicole Smyth MANUAL DIFF REQ NO Normal [facility] Comment on above: Performed By: #### C BC ####[facility] Zgskvikqbt7548 [place] [phone]. Tadeo Haja MCH (RBC) [Entitic mass] 28.8 pg Normal 26.7-34.0 [facility] Comment on above: Performed By: #### C BC ####[facility] Uvt[address]oug[address] [place], [place] [address]Dr. Tadeo Haja MCHC (RBC) [Mass/Vol] 31.7 g/dL Normal 29.9-35.2 [facility] Comment on above: Performed By: #### C BC ####[facility] Sdv[address]qatzvu38[address] [place] [phone]. Tadeo Smyth MCV (RBC) [Entitic vol] 90.8 fL Normal 81.0-99.0 [facility] Comment on above: Performed By: #### C BC ####[facility] [address]elypwq[address] [place] [address]Dr. Margotnicole Haja MONO # 0.3 103/ul Normal 0.3-0.8 [facility] Comment on above: Performed By: #### C BC ####[facility] Tssfxbwzxs[address] [place] [phone]. Margotnicole Smyth Monocytes/100 WBC (Bld) 6.9 % Normal 1.7-12.0 [facility] Comment on above: Performed By: #### C BC ####[facility] [address]tesb[address] [place], [place] [address]Dr. Tadeo Smyth NEUT # 2.4 103/ul Normal 1.4-6.5 [facility] Comment on above: Performed By: #### C BC ####[facility] Fxhgtbwnwq9713 [place] [phone]. Tadeo Smyth Neutrophils/100 WBC (Bld) 54.7 % Normal 43.0-75.0 [facility] Comment on above: Performed By: #### C BC ####[facility] Myeubtocgi2236 [place] [phone]. Tadeo Smyth Platelet mean volume (Bld) [Entitic vol] 8.9 fL Critically low 9.5-13.5 [facility] Comment on above: Performed By: #### C BC ####[facility] Omxohzybdc[address] [place] [address]Dr. Tadeo Smyth PLT 316 103/ul Normal 150-450 [facility] Comment on above: Performed By: #### C BC ####[facility] Mhrxqnlcrt[address] [place], [place] [address]Dr. Tadeo Smyth RBC 3.92 106/ul Critically low 4.20-5.40 [facility] Comment on above: Performed By: #### C BC ####[facility] Xtfubkqhlx8543 [place] [id number]. Tadeo Smyth WBC 4.4 103/ul Normal 4.0-11.0 [facility] Comment on above: Performed By: #### C BC ####[facility] Orgwsvryid278[address] [place], [place] [address]Dr. Tadeo Smyth H PYLORI ANTIBODY IGGon 10-07 H. PYLORI IGG ABS 0.12 Index Value Normal 0.00-0.79 [facility] Comment on above: Result Comment: Nega tive <0.80 Equivocal 0.80 - 0.89 Positive >0.89 Performed By: #### H PYLLC ####[facility] Zzstbobhap[address] [place], [place] [address]Dr. Tadeo Smyth LIPASEon 11-02-2022 Lipase [Catalytic activity/Vol] 58.0 U/L Critically low 73.0-393.0 [facility] Comment on above: Performed By: #### L IPA, MG, CMP, VIJI ####[facility] Xspqyqgqyp16[address] [place] [address]Dr. Tadeo Smyth MAGNESIUMon 11-02-2022 Magnesium [Mass/Vol] 1.8 mg/dL Normal 1.8-2.4 [facility] Comment on above: Performed By: #### L IPA, MG, CMP, VIJI ####[facility] Pnlkwfplbx1869 [place] [address]Dr. Tadeo Smyth PROF 14(COMP METB)on 023 Albumin [Mass/Vol] 3.2 g/dL Critically low 3.4-5.0 [facility] Comment on above: Performed By: #### L IPA, MG, CMP, VIJI ####[facility] Komwbnntnj6054[address] [place], [place] [address]Dr. Tadeo Smyth Albumin/Globulin [Mass ratio] 1.0 {ratio} Normal [facility] Comment on above: Performed By: #### L IPA, MG, CMP, VIJI ####[facility] Joyyolubaa35[address] [place], [place] [address]Dr. Tadeo Smyth ALP [Catalytic activity/Vol] 138 U/L Critically high 46-116 [facility] Comment on above: Performed By: #### L IPA, MG, CMP, VIJI ####[facility] Uaggsuxlem9[address] [place], [place] [address]Dr. Tadeo Smyth ALT [Catalytic activity/Vol] 22 U/L Normal 14-59 [facility] Comment on above: Performed By: #### L IPA, MG, CMP, VIJI ####[facility] Rlwjlyvayr6[address] [place], [place] [address]Dr. Tadeo Smyth Anion gap [Moles/Vol] 10.0 mmol/L Normal [facility] Comment on above: Performed By: #### L IPA, MG, CMP, VIJI ####[facility] Ycvbmeeyno4314[address] [place], [place] [address]Dr. Tadeo Smyth AST [Catalytic activity/Vol] 18 U/L Normal 15-37 [facility] Comment on above: Performed By: #### L IPA, MG, CMP, VIJI ####[facility] Sbciudzwnk200[address] [place], [place] [address]Dr. Tadeo Smyth Bilirubin [Mass/Vol] 0.5 mg/dL Normal 0.2-1.0 [facility] Comment on above: Performed By: #### L IPA, MG, CMP, VIJI ####[facility] Gujnttbajo18[address] [place] [address]Dr. Tadeo Smyth Calcium [Mass/Vol] 8.9 mg/dL Normal 8.5-10.1 [facility] Comment on above: Performed By: #### L IPA, MG, CMP, VIJI ####[facility] Tzblrdcqen77[address] [place], [place] [address]Dr. Tadeo Smyth Chloride [Moles/Vol] 107 mmol/L Normal 98-107 [facility] Comment on above: Performed By: #### L IPA, MG, CMP, VIJI ####[facility] Nanivbwjve837[address] [place], [place] [address]Dr. Tadeo Smyth CO2 [Moles/Vol] 28.8 mmol/L Normal 21.0-32.0 [facility] Comment on above: Performed By: #### L IPA, MG, CMP, VIJI ####[facility] Dgadzzjnff079[address] [place], [place] [address]Dr. Tadeo Smyth Creatinine [Mass/Vol] 0.74 mg/dL Normal 0.55-1.02 [facility] Comment on above: Performed By: #### L IPA, MG, CMP, VIJI ####[facility] Tqbujnqbbf9140[address] [place], [place] [address]Dr. Tadeo Smyth EGFR-AF PRYDEINIG >60 Normal >=60 [facility] Comment on above: Performed By: #### L IPA, MG, CMP, VIJI ####[facility] Llggrkltav1154[address] [place], [place] [address]Dr. Tadeo Smyth EGFR-NON AF PRYDEINIG >60 Normal >=60 [facility] Comment on above: Performed By: #### L IPA, MG, CMP, VIJI ####[facility] Pmsybpfnod2564[address] [place], [place] [address]Dr. Tadeo Smyth Globulin (S) [Mass/Vol] 3.3 g/dL Normal [facility] Comment on above: Performed By: #### L IPA, MG, CMP, VIJI ####[facility] Meaqqakgzq050[address] [place] [address]Dr. Tadeo Smyth Glucose [Mass/Vol] 96 mg/dL Normal 74-106 [facility] Comment on above: Performed By: #### L IPA, MG, CMP, VIJI ####[facility] Rxahtrjthx[address] [place], [place] [address]Dr. Tadeo Smyth Potassium [Moles/Vol] 3.8 mmol/L Normal 3.5-5.1 [facility] Comment on above: Performed By: #### L IPA, MG, CMP, VIJI ####[facility] Dgobjzrglv8774[address] [place], [place] [address]Dr. Tadeo Smyth Protein [Mass/Vol] 6.5 g/dL Normal 6.4-8.2 [facility] Comment on above: Performed By: #### L IPA, MG, CMP, VIJI ####[facility] Vlzpmzwbfj0[address] [place], [place] [address]Dr. Tadeo Smyth Sodium [Moles/Vol] 142 mmol/L Normal 136-145 [facility] Comment on above: Performed By: #### L IPA, MG, CMP, VIJI ####[facility] Zlezonymnw45[address] [place], [place] [address]Dr. Tadeo Smyth Urea nitrogen [Mass/Vol] 8.0 mg/dL Normal 7.0-18.0 [facility] Comment on above: Performed By: #### L IPA, MG, CMP, VIJI ####[facility] Rayysjpxfb3044[address] [place], [place] [address]Dr. Tadeo Smyth Urea nitrogen/Creatinine [Mass ratio] 10.8 mg/mg Normal [facility] Comment on above: Performed By: #### L IPA, MG, CMP, VIJI ####[facility] Jjjnckuugt37[address] [place], [place] [address]Dr. Tadeo Smyth AMMONIAon 11-01-2022 Ammonia (P) [Moles/Vol] 18 umol/L Normal 11-32 [facility] Comment on above: Performed By: #### A MM ####[facility] Bcdschzgwu7[address] [place] [address]Dr. Tadeo Smyth AMYLASEon 11-01-2022 Amylase [Catalytic activity/Vol] 43 U/L Normal 25-115 [facility] Comment on above: Performed By: #### M VIJI Botello LIPA, CMP ####[facility] Bjqvtnidve27[address] [place] [address]Dr. Tadeo Smyth CBC AUTO DIFFon 11-01-2022 BASO # 0.0 103/ul Normal 0.0-0.1 [facility] Comment on above: Performed By: #### C BC ####[facility] Vvkrfbbyqs6[address] [place], [place] [address]Dr. Margotnicole Smyth Basophils/100 WBC (Bld) 0.6 % Normal 0.2-2.0 [facility] Comment on above: Performed By: #### C BC ####[facility] Ybaqxvumew[address] [place], [place] [address]Dr. Tadeo Haja EO # 0.1 103/ul Normal 0.0-0.7 [facility] Comment on above: Performed By: #### C BC ####[facility] Lbitisergf7[address] [place], [place] [address]Dr. Tadeo Haja Eosinophils/100 WBC (Bld) 1.5 % Normal 0.9-7.0 [facility] Comment on above: Performed By: #### C BC ####[facility] Dmwwqmjjjn40[address] [place], [place] [address]Dr. Tadeo Haja Erythrocyte distribution width (RBC) [Ratio] 13.5 % Normal 11.0-15.0 [facility] Comment on above: Performed By: #### C BC ####[facility] Ctnvjsfyhz[address] [place], [place] [address]Dr. Tadeo Smyth Hematocrit (Bld) [Volume fraction] 37.7 % Normal 36.0-48.0 [facility] Comment on above: Performed By: #### C BC ####[facility] Cvhzjloncj[address] [place], [place] [address]Dr. Tadeo Haja Hemoglobin (Bld) [Mass/Vol] 12.5 g/dL Normal 12.0-16.0 [facility] Comment on above: Performed By: #### C BC ####[facility] Popgkpiszw14[address] [place] [address]Dr. Tadeo Smyth IG # 0.02 10e3/ul Normal 0.00-0.03 [facility] Comment on above: Performed By: #### C BC ####[facility] Hwliqqhlej[address] [place] [id number]. Tadeo Smyth IG % 0.4 % Normal 0.0-0.5 [facility] Comment on above: Performed By: #### C BC ####[facility] Jppfszekqh2322 [place] [address]Dr. Tadeo mSyth LYMPH # 1.3 103/ul Normal 1.2-3.8 [facility] Comment on above: Performed By: #### C BC ####[facility] Yggumdioqx7854 [place] [address]Dr. Tadeo Smyth Lymphocytes/100 WBC (Bld) 23.9 % Normal 20.5-60.0 [facility] Comment on above: Performed By: #### C BC ####[facility] Dmttdtcuro[address] [place] [address]Dr. Tadeo Smyth MANUAL DIFF REQ NO Normal [facility] Comment on above: Performed By: #### C BC ####[facility] Dahrqkxdtk4803 [place] [id number]. Tadeo Smyth MCH (RBC) [Entitic mass] 29.8 pg Normal 26.7-34.0 [facility] Comment on above: Performed By: #### C BC ####[facility] Vporwpfnmo5967 [place] [id number]. Tadeo Smyth MCHC (RBC) [Mass/Vol] 33.2 g/dL Normal 29.9-35.2 [facility] Comment on above: Performed By: #### C BC ####[facility] Xehepegsxs5322 [place] [address]Dr. Tadeo Smyth MCV (RBC) [Entitic vol] 89.8 fL Normal 81.0-99.0 [facility] Comment on above: Performed By: #### C BC ####[facility] Vecdlsxhei4808 [place] [id number]. Tadeo Smyth MONO # 0.3 103/ul Normal 0.3-0.8 [facility] Comment on above: Performed By: #### C BC ####[facility] Mhbyeqeill9869 [place] [id number]. Tadeo Smyth Monocytes/100 WBC (Bld) 5.2 % Normal 1.7-12.0 [facility] Comment on above: Performed By: #### C BC ####[facility] Tyitjobcvc7803 [place] [phone]. Tadeo Smyth NEUT # 3.6 103/ul Normal 1.4-6.5 [facility] Comment on above: Performed By: #### C BC ####[facility] Ueggjgguaf[address] [place], [place] [address]Dr. Tadeo Smyth Neutrophils/100 WBC (Bld) 68.4 % Normal 43.0-75.0 [facility] Comment on above: Performed By: #### C BC ####[facility] [address]asvh[address] [place], [place] [address]Dr. Tadeo Smyth Platelet mean volume (Bld) [Entitic vol] 9.0 fL Critically low 9.5-13.5 [facility] Comment on above: Performed By: #### C BC ####[facility] Vuswsvierp[address] [place] [address]Dr. Tadeo Smyth PLT 356 103/ul Normal 150-450 [facility] Comment on above: Performed By: #### C BC ####[facility] Qljawhcoah[address] [place], [place] [address]Dr. Tadeo Smyth RBC 4.20 106/ul Normal 4.20-5.40 [facility] Comment on above: Performed By: #### C BC ####[facility] Shjbiuqocc8065 [place] [id number]. Tadeo Smyth WBC 5.2 103/ul Normal 4.0-11.0 [facility] Comment on above: Performed By: #### C BC ####[facility] Ppwclgjcyo0260 [place] [phone]. Tadeo Smyth CT ABD/PELV W CONon 11-01-19 CT ABD/PELV W CON Normal [facility] CULTURE BLOODon 11-01-2022 Microscopic examination of blood, culture Culture Observations: NO GROWTH AT 5 DAYS. Isolate 1 BC_BA_NA Normal [facility] Comment on above: Performed By: #### B LDCX2 ####[facility] Nwnsxhwjrs0872 [place] [address]Dr. Tadeo Smyth Performed By: #### B LDCX1 ####[facility] Atbwvvdomw2269 [place] [address]Dr. Tadeo Smyth CULTURE URINEon 11-01-2022 CULTURE URINE Culture Observations : LIGHT GROWTH OF MIXED GENITAL SINTIA. NO POTENTIAL PATHOGENS SEEN. Normal [facility] Comment on above: Performed By: #### U RCX ####[facility] [address]ikkgijqlj[address] [place], [place] [address]Dr. Tadeo Smyth Covid-19 PCR (CVDTBH)on 10-07 SARS-CoV-2 (COVID-19) RNA CHEN+probe Ql (Unsp spec) Not detected Normal NOT DETECTED [facility] Comment on above: Result Comment: When [...] for this test is supported by the [place] of Health and Human Service's declaration that [...] Performed By: #### C VDTBH ####[facility] Mprhoolnjm1495 [place] [address]Dr. Tadeo Smyth LACTATE/LACTIC ACIDon 2022 Lactate [Moles/Vol] 0.7 mmol/L Normal 0.4-1.9 [facility] Comment on above: Performed By: #### L ACT ####[facility] Hjmoipcubq0621 [place] [address]Dr. Tadeo Smyth LIPASEon 11-01-2022 Lipase [Catalytic activity/Vol] 58.0 U/L Critically low 73.0-393.0 [facility] Comment on above: Performed By: #### M G, VIJI, LIPA, CMP ####[facility] Fsfelswxoz7550 [place] [address]Dr. Tadeo Smyth MAGNESIUMon 11-01-2022 Magnesium [Mass/Vol] 2.0 mg/dL Normal 1.8-2.4 [facility] Comment on above: Performed By: #### M G, VIJI, LIPA, CMP ####[facility] Ykranhkecc2412 [place] [address]Dr. Tadeo Smyth PROF 14(COMP METB)on 023 Albumin [Mass/Vol] 3.6 g/dL Normal 3.4-5.0 [facility] Comment on above: Performed By: #### M G, VIJI, LIPA, CMP ####[facility] Ehooigktii2626 [place] [address]Dr. Tadeo Smyth Albumin/Globulin [Mass ratio] 1.0 {ratio} Normal [facility] Comment on above: Performed By: #### M G, VIJI, LIPA, CMP ####[facility] Cuzhqscrpx76[address] [place] [address]Dr. Tadeo Smyth ALP [Catalytic activity/Vol] 164 U/L Critically high 46-116 [facility] Comment on above: Performed By: #### M G, VIJI, LIPA, CMP ####[facility] Qswowythsq7760 [place] [address]Dr. Tadeo Smyth ALT [Catalytic activity/Vol] 22 U/L Normal 14-59 [facility] Comment on above: Performed By: #### M G, VIJI, LIPA, CMP ####[facility] Fdvuhqqnpq5229 [place] [address]Dr. Tadeo Smyth Anion gap [Moles/Vol] 11.5 mmol/L Normal Th e [facility] Comment on above: Performed By: #### M G, VIJI, LIPA, CMP ####[facility] Lgppxucmbx1315 [place] [address]Dr. Tadeo Smyth AST [Catalytic activity/Vol] 17 U/L Normal 15-37 [facility] Comment on above: Performed By: #### M G, VIJI, LIPA, CMP ####[facility] Skpyvxpzbp1546 [place] [address]Dr. Tadeo Smyth Bilirubin [Mass/Vol] 0.4 mg/dL Normal 0.2-1.0 [facility] Comment on above: Performed By: #### M G, VIJI, LIPA, CMP ####[facility] Nxubqxwuqr[address] [place], [place] [address]Dr. Tadeo Smyth Calcium [Mass/Vol] 9.1 mg/dL Normal 8.5-10.1 [facility] Comment on above: Performed By: #### M Ayan, VIJI, LIPA, CMP ####[facility] Xobomqfpms8132 [place] [address]Dr. Tadeo Smyth Chloride [Moles/Vol] 105 mmol/L Normal 98-107 [facility] Comment on above: Performed By: #### M G, VIJI, LIPA, CMP ####[facility] Fzmwkxayuo4405 [place] [address]Dr. Tadeo Smyth CO2 [Moles/Vol] 27.6 mmol/L Normal 21.0-32.0 [facility] Comment on above: Performed By: #### M G, VIJI, LIPA, CMP ####[facility] Zbysdkstod7446 [place] [address]Dr. Tadeo Smyth Creatinine [Mass/Vol] 0.72 mg/dL Normal 0.55-1.02 [facility] Comment on above: Performed By: #### M G, VIJI, LIPA, CMP ####[facility] Nrxliqzmbv8640 [place] [address]Dr. Tadeo Smyth EGFR-AF PRYDEINIG >60 Normal >=60 [facility] Comment on above: Performed By: #### M G, VIJI, LIPA, CMP ####[facility] Ycbozfjuzb1594 [place] [address]Dr. Tadeo Smyth EGFR-NON AF PRYDEINIG >60 Normal >=60 [facility] Comment on above: Performed By: #### M G, VIJI, LIPA, CMP ####[facility] Uogotjvbnd2590 [place] [address]Dr. Tadeo Smyth Globulin (S) [Mass/Vol] 3.6 g/dL Normal [facility] Comment on above: Performed By: #### M G, VIJI, LIPA, CMP ####[facility] Kkcsztfriz3588 [place] [address]Dr. Tadeo Smyth Glucose [Mass/Vol] 100 mg/dL Normal 74-106 [facility] Comment on above: Performed By: #### M G, VIJI, LIPA, CMP ####[facility] Zdypvdrrqr8[address] [place], [place] [address]Dr. Tadeo Smyth Potassium [Moles/Vol] 4.1 mmol/L Normal 3.5-5.1 [facility] Comment on above: Performed By: #### M G, VIJI, LIPA, CMP ####[facility] Uhleeileun9929 [place] [address]Dr. Tadeo Smyth Protein [Mass/Vol] 7.2 g/dL Normal 6.4-8.2 [facility] Comment on above: Performed By: #### M G, VIJI, LIPA, CMP ####[facility] Oyvglqbqcw[address] [place], [place] [address]Dr. Tadeo Smyth Sodium [Moles/Vol] 140 mmol/L Normal 136-145 [facility] Comment on above: Performed By: #### M G, VIJI, LIPA, CMP ####[facility] Ddscpmakku5192 [place] [address]Dr. Yilan Smyth Urea nitrogen [Mass/Vol] 15.0 mg/dL Normal 7.0-18.0 [facility] Comment on above: Performed By: #### VIJI White LIPA, CMP ####[facility] Vksbmdzttn9416 [place] [address]Dr. Taedo Smyth Urea nitrogen/Creatinine [Mass ratio] 20.8 mg/mg Normal [facility] Comment on above: Performed By: #### VIJI White LIPA, CMP ####[facility] Sgcgnpsqmk9687 [place] [address]Dr. Tadeo Smyth UA RANDOM W/MICROSCOPICon BACTERIA TRACE Abnormal NONE SEEN [facility] Comment on above: Performed By: #### U AMIC ####[facility] Nczprduouf[address] [place], [place] [address]Dr. Tadeo Smyth Bilirubin Ql (U) Negative Normal NEGATIVE [facility] Comment on above: Performed By: #### U AMIC ####[facility] M[address]wazfvvfy[address] [place], [place] [address]Dr. Tadeo Smyth CAST NONE SEEN Normal NONE SEEN [facility] Comment on above: Performed By: #### U AMIC ####[facility] Sravveourd80[address] [place], [place] [address]Dr. Tadeo Smyth Clarity (U) CLEAR Normal CLEAR [facility] Comment on above: Performed By: #### U AMIC ####[facility] Xybaqpamdx207[address] [place], [place] [address]Dr. Tadeo Smyth Color (U) LT. YELLOW Normal YELLOW [facility] Comment on above: Performed By: #### U AMIC ####[facility] Gzmuwhbjjq9957 [place] [address]Dr. Tadeo Smyth Crystals LM Nom (Urine sed) NONE SEEN Normal NONE SEEN [facility] Comment on above: Performed By: #### U AMIC ####[facility] Xzznitcmcp2499 [place] [address]Dr. Tadeo Smyth Epithelial cells LM Ql (Urine sed) RARE Normal NONE SEEN /RARE [facility] Comment on above: Performed By: #### U AMIC ####[facility] Fumubkfwth5004 [place] [address]Dr. Margotnicole Smyth Glucose Ql (U) Negative Normal NEGATIVE [facility] Comment on above: Performed By: #### U AMIC ####[facility] Prnrqfgglm2919 [place] [address]Dr. Margotnicole Smyth Hemoglobin Ql (U) TRACE-LYSED Abnormal NEGATIVE The [facility] Comment on above: Performed By: #### U AMIC ####[facility] Wlaatzrjws3647 [place] [address]Dr. Tadeo Smyth Ketones Ql (U) Negative Normal NEGATIVE [facility] Comment on above: Performed By: #### U AMIC ####[facility] Pykepgnqvj[address] [place], [place] [address]Dr. Tadeo Smyth LEUKOCYTES Negative Normal NEGATIVE [facility] Comment on above: Performed By: #### U AMIC ####[facility] Ucrxdgxjvd[address] [place], [place] [address]Dr. Tadeo Smyth MUCOUS NONE SEEN Normal NONE SEEN [facility] Comment on above: Performed By: #### U AMIC ####[facility] Rrpnimhmvw[address] [place], [place] [address]Dr. Tadeo Smyth Nitrite Ql (U) Negative Normal NEGATIVE [facility] Comment on above: Performed By: #### U AMIC ####[facility] Qldwkoscof89[address] [place], [place] [address]Dr. Tadeo Smyth pH (U) 6.0 [pH] Normal 5-9 [facility] Comment on above: Performed By: #### U AMIC ####[facility] [address]vwjwxtx[address] [place], [place] [address]Dr. Tadeo Smyth RBC 0-2 Normal 0-2 [facility] Comment on above: Performed By: #### U AMIC ####[facility] Kdwtnwhfxj0[address] [place], [place] [address]Dr. Tadeo Smyth SPEC GRAVITY 1.010 Normal 1.005-<=1.0 25 [facility] Comment on above: Performed By: #### U AMIC ####[facility] [address] [place], [place] [address]Cs. Tadeo Smyth UA PROTEIN Negative Normal NEGATIVE/ TRACE [facility] Comment on above: Performed By: #### U AMIC ####[facility] Cswdqtegkh9031 [place], [place] [address]Vy. Tadeo Smyth Urobilinogen Qn (U) 0.2 {Benito'U}/dL Normal 0.2 - 1. 0 [facility] Comment on above: Performed By: #### U AMIC ####[facility] Srojsovhja1549 [place], [place] [address]Nr. Tadeo Smyth WBC 0-2 Abnormal NONE SEEN [facility] Comment on above: Performed By: #### U AMIC ####[facility] Qklafayczz4861 [place] [address]Dr. Tadeo Smyth Activated partial thrombopla stin time (aPTT) in platelet poor plasma by coagulation aOrdered By: Conner Griffith on 10-26-2022 aPTT Coag (PPP) [Time] 30.8 s 25.1-36.5 [facility] Albumin [Mass/volume] in Ser um or PlasmaOrdered By: Conner Griffith on 10-26-2022 Albumin [Mass/Vol] 3.6 g/dL 3.2-5.5 [facility] Automated erythrocytes count in urine sediment (number/area)Ordered By: Conner Griffith on 10-26-2022 RBC Auto (Urine sed) [#/Area] 0-1 [HPF] 0-4 [facility] Automated leukocytes count i n urine sediment (number/area)Ordered By: Conner Griffith on 10-26-2022 WBC Auto (Urine sed) [#/Area] None seen [HPF] 0-4 [facility] Basophils Auto (Bld) [#/Vol] Ordered By: Conner Griffith on 10-26-2022 Basophils (Bld) [#/Vol] 0.0 10*3/uL 0.0-0.2 [facility] Basophils/100 WBC Auto (Bld) Ordered By: Conner Griffith on 10-26-2022 Basophils/100 WBC (Bld) 0.6 % . [facility] Bilirubin Test strip Ql (U)O rdered By: Conner Griffith on 10-26-2022 Bilirubin Ql (U) Negative Negative [facility] Color Auto (U)Ordered By: Kevin Griffith on 10-26-2022 Color (U) Yellow Yellow [facility] Creatinine and Glomerular fi ltration rate.predicted panel (S/P/Bld)Ordered By: Conner Griffith on 10-26-2022 Creatinine [Mass/Vol] 0.81 mg/dL 0.44-1.03 [facility] Eosinophils Auto (Bld) [#/Vo l]Ordered By: Conner Griffith on 10-26-2022 Eosinophils (Bld) [#/Vol] 0.2 10*3/uL 0.0-0.45 [facility] Eosinophils/100 WBC Auto (Bl d)Ordered By: Conner Griffith on 10-26-2022 Eosinophils/100 WBC (Bld) 3.3 % . [facility] Erythrocyte distribution wid th Auto (RBC) [Ratio]Ordered By: Conner Griffith on 10-26-2022 Erythrocyte distribution width (RBC) [Ratio] 14.5 % 11.9-15.3 [facility] Estimated glomerular filtrat ion rate (GFR) non- AmericanOrdered By: Conner Griffith on 10-26-2022 GFR/1.73 sq M.predicted among non-blacks MDRD (S/P/Bld) [Vol rate/Area] > 60 mL/Min [facility] Globulin Calc (S) [Mass/Vol] Ordered By: Conner Griffith on 10-26-2022 Globulin (S) [Mass/Vol] 3.2 g/dL [facility] Hematocrit Auto (Bld) [Volum e fraction]Ordered By: Conner Griffith on 10-26-2022 Hematocrit (Bld) [Volume fraction] 36.7 % 34.0-46.4 [facility] Hemoglobin [Mass/volume] in BloodOrdered By: Conner Griffith on 10-26-2022 Hemoglobin (Bld) [Mass/Vol] 12.1 g/dL 11.8-15.4 [facility] Ketones Auto test strip (U) [Mass/Vol]Ordered By: Conner Griffith on 10-26-2022 Ketones (U) [Mass/Vol] Negative Negative [facility] Laboratory - Chemistry and C hemistry - challengeOrdered By: Conner Griffith on 10-26-2022 Lipase [Catalytic activity/Vol] 37.0 U/L 22-51 [facility] Laboratory - CoagulationOrde red By: Conner Griffith on 10-26-2022 PT Coag (PPP) [Time] 10.6 s 9.0-12.9 [facility] Laboratory - UrinalysisOrder ed By: Conner Griffith on 10-26-2022 Hyaline casts LM Ql (Urine sed) None seen [LPF] 0-8 [facility] Leukocytes [#/volume] correc jun for nucleated erythrocytes in Blood by Automated counOrdered By: Conner Griffith on 10-26-2022 WBC corrected for nucl RBC Auto (Bld) [#/Vol] 6.3 10*3/uL 3.8-11.6 [facility] Lymphocytes Auto (Bld) [#/Vo l]Ordered By: Conner Griffith on 10-26-2022 Lymphocytes (Bld) [#/Vol] 1.9 10*3/uL 1.00-4.8 [facility] Lymphocytes/100 WBC Auto (Bl d)Ordered By: Conner Griffith on 10-26-2022 Lymphocytes/100 WBC (Bld) 29.7 % . [facility] MCH Auto (RBC) [Entitic mass ]Ordered By: Conner Griffith on 10-26-2022 MCH (RBC) [Entitic mass] 29.3 pg 24.7-34.3 [facility] MCHC Auto (RBC) [Mass/Vol]Or dered By: Conner Griffith on 10-26-2022 MCHC (RBC) [Mass/Vol] 33.1 g/dL 32.0-35.0 [facility] MCV Auto (RBC) [Entitic vol] Ordered By: Conner Griffith on 10-26-2022 MCV (RBC) [Entitic vol] 88.5 fL 80-100 [facility] Monocyte distribution width [Entitic volume] in Blood by AutomatedOrdered By: Conner Griffith on 10-26-2022 Monocyte distribution width Auto (Bld) [Entitic vol] 16.27 % 0.00-20.00 [facility] Monocytes Auto (Bld) [#/Vol] Ordered By: Conner Griffith on 10-26-2022 Monocytes (Bld) [#/Vol] 0.4 10*3/uL 0.0-0.8 [facility] Monocytes/100 WBC Auto (Bld) Ordered By: Conner Griffith on 10-26-2022 Monocytes/100 WBC (Bld) 7.1 % . [facility] Neutrophils Auto (Bld) [#/Vo l]Ordered By: Conner Griffith on 10-26-2022 Neutrophils (Bld) [#/Vol] 3.7 10*3/uL 1.8-7.7 [facility] Neutrophils/100 WBC Auto (Bl d)Ordered By: Conner Griffith on 10-26-2022 Neutrophils/100 WBC (Bld) 59.3 % . [facility] Nitrite Test strip Ql (U)Ord ered By: Conner Griffith on 10-26-2022 Nitrite Ql (U) Negative Negative [facility] No Panel InformationOrdered By: Conner Griffith on 10-26-2022 Estimated GFR () > 60 mL/Min [facility] Comment on above: GFR estimated refere nce range: According to KDOQI guidelines, <60 ml/min/1.73m2 is sufficient to diagnose a patient with chronic kidney disease. Pharmacy Creatinine Clearance (Chem 93.01 [facility] Nucleated erythrocytes [Pres ence] in Blood by Automated countOrdered By: Conner Griffith on 10-26-2022 Nucleated RBC Auto Ql (Bld) 0.3 /100{WBC} 0-0.5 [facility] Platelet mean volume Auto (B ld) [Entitic vol]Ordered By: Conner Griffith on 10-26-2022 Platelet mean volume (Bld) [Entitic vol] 7.5 fL 6.3-10.7 [facility] Platelet poor plasma interna tional normalized ratio (INR) by coagulation assay (relatOrdered By: Conner Griffith on 10-26-2022 INR Coag (PPP) [Relative time] 0.9 {INR} [facility] Comment on above: INR Therapeutic Rang [...] 10-26-2022 Platelets (Bld) [#/Vol] 379 10*3/uL 150-450 [facility] Protein Auto test strip (U) [Mass/Vol]Ordered By: Conner Griffith on 10-26-2022 Protein (U) [Mass/Vol] Negative Negative [facility] Protein [Mass/volume] in Ser um or PlasmaOrdered By: Conner Griffith on 10-26-2022 Protein [Mass/Vol] 6.8 g/dL 6.1-7.9 [facility] RBC Auto (Bld) [#/Vol]Ordere d By: Conner Griffith on 10-26-2022 RBC (Bld) [#/Vol] 4.14 10*6/uL 3.60-5.00 [facility] Serum or plasma alanine cooley otransferase measurement without P-5'-P (enzymatic activiOrdered By: Conner Griffith on 10-26-2022 ALT No additional P-5'-P [Catalytic activity/Vol] 18 U/L 10-60 [facility] Serum or plasma albumin/glob ulin mass ratioOrdered By: Conner Griffith on 10-26-2022 Albumin/Globulin [Mass ratio] 1.1 {ratio} [facility] Serum or plasma alkaline augustin sphatase measurement (enzymatic activity/volume)Ordered By: Conner Griffith on 10-26-2022 ALP [Catalytic activity/Vol] 121 U/L 32-92 [facility] Serum or plasma anion gap de terminationOrdered By: Conner Griffith on 10-26-2022 Anion gap [Moles/Vol] 11.3 mmol/L 6.0-15.0 [facility] Serum or plasma aspartate am inotransferase measurement (enzymatic activity/volume)Ordered By: Conner Griffith on 10-26-2022 AST [Catalytic activity/Vol] 19 U/L 10-42 [facility] Serum or plasma calcium julee urement (mass/volume)Ordered By: Conner Griffith on 10-26-2022 Calcium [Mass/Vol] 8.9 mg/dL 8.2-10.2 [facility] Serum or plasma chloride julio surement (moles/volume)Ordered By: Conner Griffith on 10-26-2022 Chloride [Moles/Vol] 108 mmol/L 95-114 [facility] Serum or plasma glucose julee urement (mass/volume)Ordered By: Conner Griffith on 10-26-2022 Glucose [Mass/Vol] 95 mg/dL 70-100 [facility] Comment on above: ADA recommended refe rence rangeRandom Glucose Reference Range is dependent on time and content of last meal. Glucose of more than 200 mg/dL in a nonstressed, ambulatory subject supports the diagnosis of Diabetes Mellitus. Serum or plasma potassium me asurement (moles/volume)Ordered By: Conner Griffith on 10-26-2022 Potassium [Moles/Vol] 3.4 mmol/L 3.5-5.1 [facility] Serum or plasma sodium measu rement (moles/volume)Ordered By: Conner Griffith on 10-26-2022 Sodium [Moles/Vol] 141 mmol/L 136-146 [facility] Serum or plasma total biliru bin measurement (mass/volume)Ordered By: Conner Griffith on 10-26-2022 Bilirubin [Mass/Vol] 0.4 mg/dL 0.3-1.2 [facility] Serum or plasma total carbon dioxide measurement (moles/volume)Ordered By: Conner Griffith on 10-26-2022 CO2 [Moles/Vol] 25.1 mmol/L 22.0-30.0 [facility] Serum or plasma urea nitroge n measurement (mass/volume)Ordered By: Conner Griffith on 10-26-2022 Urea nitrogen [Mass/Vol] 18 mg/dL 9-23 [facility] Specific gravity Auto test s trip (U) [Rel density]Ordered By: Conner Griffith on 10-26-2022 Specific gravity (U) [Rel density] 1.019 1.001-1.030 [facility] Squamous epithelial cells de tection in urine sediment by light microscopyOrdered By: Conner Griffith on 10-26-2022 Epithelial cells.squamous LM Ql (Urine sed) 1-2 [HPF] 0-2 [facility] Urine bacteria detection by automated methodOrdered By: Conner Griffith on 10-26-2022 Bacteria Auto Ql (U) None seen None Seen [facility] Urine clarity by refractomet ry automatedOrdered By: Conner Griffith on 10-26-2022 Clarity Refractometry automated (U) Clear Clear [facility] Urine glucose measurement by automated test strip (mass/volume)Ordered By: Conner Griffith on 10-26-2022 Glucose Auto test strip (U) [Mass/Vol] Normal mg/dL Normal [facility] Urine hemoglobin detection b y automated test stripOrdered By: Conner Griffith on 10-26-2022 Hemoglobin Auto test strip Ql (U) Negative Negative [facility] Urine lactic acid measuremen tOrdered By: Conner Griffith on 10-26-2022 Lactate (U) [Moles/Vol] 1.0 mmol/L 0.5-2.2 [facility] Urine leukocyte esterase det ection by automated test stripOrdered By: Conner Griffith on 10-26-2022 Leukocyte esterase Auto test strip Ql (U) 1+ Negative [facility] Urobilinogen Auto test strip (U) [Mass/Vol]Ordered By: Conner Griffith on 10-26-2022 Urobilinogen (U) [Mass/Vol] Normal mg/dL Normal [facility] WBC Auto (Bld) [#/Vol]Ordere d By: Conner Griffith on 10-26-2022 WBC (Bld) [#/Vol] 6.3 10*3/uL 3.8-11.6 [facility] pH Auto test strip (U)Ordere d By: Conner Griffith on 10-26-2022 pH (U) 6.5 [pH] 5.0-9.0 [facility] CBC AUTO DIFFon 09-21-2022 BASO # 0.0 103/ul Normal 0.0-0.1 [facility] Comment on above: Performed By: #### C BC ####[facility] [address] [place] [phone]. Margotnicole Smyth Basophils/100 WBC (Bld) 0.4 % Normal 0.2-2.0 [facility] Comment on above: Performed By: #### C BC ####[facility] [address] [place] [address]Dr. Margotnicole Smyth EO # 0.1 103/ul Normal 0.0-0.7 [facility] Comment on above: Performed By: #### C BC ####[facility] [address] [place], [place] [address]Dr. Tadeo Smyth Eosinophils/100 WBC (Bld) 1.8 % Normal 0.9-7.0 [facility] Comment on above: Performed By: #### C BC ####[facility] [address] [place], [place] [address]Dr. Margotnicole Smyth Erythrocyte distribution width (RBC) [Ratio] 13.8 % Normal 11.0-15.0 [facility] Comment on above: Performed By: #### C BC ####[facility] [address] [place] [address]Dr. Tadeo Smyth Hematocrit (Bld) [Volume fraction] 41.0 % Normal 36.0-48.0 [facility] Comment on above: Performed By: #### C BC ####[facility] [address] [place] [address]Dr. Tadeo Smyth Hemoglobin (Bld) [Mass/Vol] 13.3 g/dL Normal 12.0-16.0 [facility] Comment on above: Performed By: #### C BC ####[facility] [address] [place] [address]Dr. Tadeo Smyth IG # 0.01 10e3/ul Normal 0.00-0.03 [facility] Comment on above: Performed By: #### C BC ####[facility] [address] [place] [id number]. Margotnicole Smyth IG % 0.1 % Normal 0.0-0.5 [facility] Comment on above: Performed By: #### C BC ####[facility] [address] [place] [address]Dr. Tadeo Haja LYMPH # 1.7 103/ul Normal 1.2-3.8 [facility] Comment on above: Performed By: #### C BC ####[facility] [address] [place] [address]Dr. Margotnicole Smyth Lymphocytes/100 WBC (Bld) 24.8 % Normal 20.5-60.0 [facility] Comment on above: Performed By: #### C BC ####[facility] [address] [place] [phone]. Margotnicole Smyth MANUAL DIFF REQ NO Normal [facility] Comment on above: Performed By: #### C BC ####[facility] [address] [place] [phone]. Tadeo Haja MCH (RBC) [Entitic mass] 29.0 pg Normal 26.7-34.0 [facility] Comment on above: Performed By: #### C BC ####[facility] [address]tr[address]htx[address] [place], [place] [address]Dr. Tadeo Smyth MCHC (RBC) [Mass/Vol] 32.4 g/dL Normal 29.9-35.2 [facility] Comment on above: Performed By: #### C BC ####[facility] S[address] [place], [place] [address]Dr. Tadeo Haja MCV (RBC) [Entitic vol] 89.3 fL Normal 81.0-99.0 [facility] Comment on above: Performed By: #### C BC ####[facility] K[address]im[address] [place], [place] [address]Dr. Tadeo Smyth MONO # 0.5 103/ul Normal 0.3-0.8 [facility] Comment on above: Performed By: #### C BC ####[facility] [address] [place], [place] [address]Dr. Tadeo Smyth Monocytes/100 WBC (Bld) 6.9 % Normal 1.7-12.0 [facility] Comment on above: Performed By: #### C BC ####[facility] [address]jr[address] [place] [address]Dr. Tadeo Smyth NEUT # 4.5 103/ul Normal 1.4-6.5 [facility] Comment on above: Performed By: #### C BC ####[facility] [address]tr[address] [place] [address]Dr. Tadeo Smyth Neutrophils/100 WBC (Bld) 66.0 % Normal 43.0-75.0 [facility] Comment on above: Performed By: #### C BC ####[facility] [address]rk[address] [place] [address]Dr. Tadeo Smyth Platelet mean volume (Bld) [Entitic vol] 8.8 fL Critically low 9.5-13.5 [facility] Comment on above: Performed By: #### C BC ####[facility] Q[address]cguf[address] [place] [address]Dr. Tadeo Smyth PLT 384 103/ul Normal 150-450 [facility] Comment on above: Performed By: #### C BC ####[facility] [address]iyxalu[address] [place] [address]Dr. Tadeo Smyth RBC 4.59 106/ul Normal 4.20-5.40 [facility] Comment on above: Performed By: #### C BC ####[facility] Upbsataarp[address] [place] [address]Dr. Tadeo Smyth WBC 6.8 103/ul Normal 4.0-11.0 [facility] Comment on above: Performed By: #### C BC ####[facility] [address]ulxmkil[address] [place] [address]Dr. Tadeo Smyth PROF CHEM 8 (BAS METB)on Anion gap [Moles/Vol] 13.8 mmol/L Normal [facility] Comment on above: Performed By: #### B MP ####[facility] [address] [place] [phone]. Tdaeo Smyth Calcium [Mass/Vol] 9.6 mg/dL Normal 8.5-10.1 [facility] Comment on above: Performed By: #### B MP ####[facility] Oowwfujznh[address] [place], [place] [address]Dr. Tadeo Smyth Chloride [Moles/Vol] 106 mmol/L Normal 98-107 [facility] Comment on above: Performed By: #### B MP ####[facility] [address]om[address] [place], [place] [address]Dr. Tadeo Smyth CO2 [Moles/Vol] 25.9 mmol/L Normal 21.0-32.0 [facility] Comment on above: Performed By: #### B MP ####[facility] Tdhzidweou[address] [place], [place] [address]Dr. Tadeo Smyth Creatinine [Mass/Vol] 0.92 mg/dL Normal 0.55-1.02 [facility] Comment on above: Performed By: #### B MP ####[facility] Fmhoaplv[address] [place], [place] [address]Dr. Tadeo Smyth EGFR-AF PRYDEINIG >60 Normal >=60 [facility] Comment on above: Performed By: #### B MP ####[facility] [address] [place], [place] [address]Dr. Tadeo Smyth EGFR-NON AF PRYDEINIG >60 Normal >=60 [facility] Comment on above: Performed By: #### B MP ####[facility] [address] [place], [place] [address]Dr. Tadeo Smyth Glucose [Mass/Vol] 98 mg/dL Normal 74-106 [facility] Comment on above: Performed By: #### B MP ####[facility] Qfwkxniamr[address] [place], [place] [address]Dr. Tadeo Smyth Potassium [Moles/Vol] 3.7 mmol/L Normal 3.5-5.1 [facility] Comment on above: Performed By: #### B MP ####[facility] [address] [place], [place] [address]Dr. Tadeo Smyth Sodium [Moles/Vol] 142 mmol/L Normal 136-145 [facility] Comment on above: Performed By: #### B MP ####[facility] [address]asxwb3[address] [place] [phone]. Tadeo Smyth Urea nitrogen [Mass/Vol] 19.0 mg/dL Critically high 7.0-18.0 [facility] Comment on above: Performed By: #### B MP ####[facility] [address]eb[address] [place] [phone]. Tadeo Haja Urea nitrogen/Creatinine [Mass ratio] 20.7 mg/mg Normal [facility] Comment on above: Performed By: #### B MP ####[facility] K[address]sfjm[address] [place], [place] [address]Dr. Tadeo Smyth XR KUB 1 VIEWon 09-21-2022 XR KUB 1 VIEW Normal [facility] AMYLASEon 09-18-2022 Amylase [Catalytic activity/Vol] 58 U/L Normal 25-115 [facility] Comment on above: Performed By: #### L IPA, CMP, VIJI ####[facility] [address]su[address] [place] [id number]. Tadeo Haja CBC AUTO DIFFon 09-18-2022 BASO # 0.0 103/ul Normal 0.0-0.1 [facility] Comment on above: Performed By: #### C BC ####[facility] V[address]ounfas[address] [place] [address]Dr. Margotnicole Smyth Basophils/100 WBC (Bld) 0.3 % Normal 0.2-2.0 [facility] Comment on above: Performed By: #### C BC ####[facility] X[address]wrwjpd5184 [place] [phone]. Tadeo Smyth EO # 0.1 103/ul Normal 0.0-0.7 [facility] Comment on above: Performed By: #### C BC ####[facility] Qoxxuteqwn7172 [place] [address]Dr. Tadeo Smyth Eosinophils/100 WBC (Bld) 1.8 % Normal 0.9-7.0 [facility] Comment on above: Performed By: #### C BC ####[facility] [address]nfcepyun[address] [place] [address]Dr. Tadeo Smyth Erythrocyte distribution width (RBC) [Ratio] 13.7 % Normal 11.0-15.0 [facility] Comment on above: Performed By: #### C BC ####[facility] [address]wuu[address] [place], [place] [address]Dr. Tadeo Smyth Hematocrit (Bld) [Volume fraction] 37.4 % Normal 36.0-48.0 [facility] Comment on above: Performed By: #### C BC ####[facility] Oalwgxinav[address] [place], [place] [address]Dr. Tadeo Smyth Hemoglobin (Bld) [Mass/Vol] 12.3 g/dL Normal 12.0-16.0 [facility] Comment on above: Performed By: #### C BC ####[facility] [address] [place], [place] [address]Dr. Tadeo Smyth IG # 0.02 10e3/ul Normal 0.00-0.03 [facility] Comment on above: Performed By: #### C BC ####[facility] L[address]izvhgkwr[address] [place], [place] [address]Dr. Tadeo Smyth IG % 0.3 % Normal 0.0-0.5 [facility] Comment on above: Performed By: #### C BC ####[facility] [address]thgr[address] [place], [place] [address]Dr. Tadeo Smyth LYMPH # 2.2 103/ul Normal 1.2-3.8 [facility] Comment on above: Performed By: #### C BC ####[facility] Defwprjqyu[address] [place], [place] [address]Dr. Tadeo Smyth Lymphocytes/100 WBC (Bld) 29.3 % Normal 20.5-60.0 [facility] Comment on above: Performed By: #### C BC ####[facility] [address]li[address] [place], [place] [address]Dr. Tadeo Smyth MANUAL DIFF REQ NO Normal [facility] Comment on above: Performed By: #### C BC ####[facility] Zkulusolgb16[address] [place] [phone]. Tadeo Haja MCH (RBC) [Entitic mass] 29.0 pg Normal 26.7-34.0 [facility] Comment on above: Performed By: #### C BC ####[facility] [address]wkdzmuzj15[address] [place] [phone]. Tadeo Haja MCHC (RBC) [Mass/Vol] 32.9 g/dL Normal 29.9-35.2 [facility] Comment on above: Performed By: #### C BC ####[facility] [address]jptedixp[address] [place] [address]Dr. Margotnicole Smyth MCV (RBC) [Entitic vol] 88.2 fL Normal 81.0-99.0 [facility] Comment on above: Performed By: #### C BC ####[facility] [address]my[address] [place], [place] [address]Dr. Tadeo Smyth MONO # 0.5 103/ul Normal 0.3-0.8 [facility] Comment on above: Performed By: #### C BC ####[facility] [address]iaw[address] [place], [place] [address]Dr. Tadeo Smyth Monocytes/100 WBC (Bld) 6.4 % Normal 1.7-12.0 [facility] Comment on above: Performed By: #### C BC ####[facility] X[address]xbt[address] [place], [place] [address]Dr. Tadeo Smyth NEUT # 4.7 103/ul Normal 1.4-6.5 [facility] Comment on above: Performed By: #### C BC ####[facility] [address] [place], [place] [address]Dr. aTdeo Smyth Neutrophils/100 WBC (Bld) 61.9 % Normal 43.0-75.0 [facility] Comment on above: Performed By: #### C BC ####[facility] [address] [place], [place] [address]Dr. Tadeo Smyth Platelet mean volume (Bld) [Entitic vol] 9.0 fL Critically low 9.5-13.5 [facility] Comment on above: Performed By: #### C BC ####[facility] [address]mwpzcti[address] [place] [address]Dr. Tadeo Smyth PLT 395 103/ul Normal 150-450 [facility] Comment on above: Performed By: #### C BC ####[facility] [address]fidpah[address] [place] [phone]. Tadeo Smyth RBC 4.24 106/ul Normal 4.20-5.40 [facility] Comment on above: Performed By: #### C BC ####[facility] Wngpofbxqg[address] [place] [address]Dr. Margotnicole Smyth WBC 7.6 103/ul Normal 4.0-11.0 [facility] Comment on above: Performed By: #### C BC ####[facility] [address]vqkr[address] [place] [address]Dr. Tadeo Smyth CT ABD/PELV W CONon 09-18-[address] ABD/PELV W CON Normal [facility] ER URINE PROFILEon 3 Bilirubin Ql (U) SMALL Abnormal NEGATIVE [facility] Comment on above: Performed By: #### KAROL MERCHANT ####[facility] [address] [place], [place] [address]Dr. Tadeo Smyth Clarity (U) CLEAR Normal CLEAR [facility] Comment on above: Performed By: #### SANDRO MERCHANTRO ####[facility] [address]vgusnj[address] [place] [address]Dr. Tadeo Smyth Color (U) DK. YELLOW Normal YELLOW [facility] Comment on above: Performed By: #### SANDRO MERCHANTRO ####[facility] [address]fwixy[address] [place] [id number]. Tadeo CAMARGOD A micrscopic examina tion will be performed if indicated. Normal [facility] Comment on above: Performed By: #### SANDRO MERCHANTRO ####[facility] [address]irmpwbt18[address] [place] [address]Dr. Tadeo Smyth Glucose Ql (U) Negative Normal NEGATIVE [facility] Comment on above: Performed By: #### Matthew FRANCISCO UMICRO ####[facility] [address]zvht26[address] [place] [phone]. Tadeo Smyth Hemoglobin Ql (U) SMALL Abnormal NEGATIVE [facility] Comment on above: Performed By: #### Matthew FRANCISCO UMICRO ####[facility] [address] [place], [place] [address]Dr. Tadeo Smyth Ketones Ql (U) Negative Normal NEGATIVE [facility] Comment on above: Performed By: #### Matthew FRANCISCO UMICRO ####[facility] [address] [address] [place], [place] [address]Dr. Tadeo Smyth LEUKOCYTES Negative Normal NEGATIVE [facility] Comment on above: Performed By: #### Matthew FRANCISCO UMICRO ####[facility] Wqqjkgblqb[address] [place], [place] [address]Dr. Tadeo Smyth Nitrite Ql (U) Negative Normal NEGATIVE [facility] Comment on above: Performed By: #### Matthew FRANCISCO UMICRO ####[facility] V[address]zdqmhsj[address] [place], [place] [address]Dr. Tadeo Smyth pH (U) 5.5 [pH] Normal 5-9 [facility] Comment on above: Performed By: #### Matthew FRANCISCO UMICRO ####[facility] Ifpmqcyoir2[address] [place], [place] [address]Dr. Tadeo Smyth SPEC GRAVITY >=1.030 Abnormal 1.005-<=1.0 25 [facility] Comment on above: Performed By: #### Matthew FRANCISCO UMICRO ####[facility] Eojbysnsth43[address] [place], [place] [address]Dr. Tadeo Smyth UA PROTEIN TRACE Normal NEGATIVE/ TRACE [facility] Comment on above: Performed By: #### SANDRO MERCHANTRO ####[facility] Oejszdddnq4[address] [place], [place] [address]Dr. Tadeo Smyth UR MICRO IND INDICATED Normal [facility] Comment on above: Performed By: #### RANDI MERCHANTICRO ####[facility] Jmhompszhe3871 [place] [phone]. Tadeo Haja Urobilinogen Qn (U) 0.2 {Benito'U}/dL Normal 0.2 - 1. 0 [facility] Comment on above: Performed By: #### E KAROL FRANCISCO ####[facility] Cxucaydaku9536 [place] [address]Dr. Tadeo Smyth LACTATE/LACTIC ACIDon 2022 Lactate [Moles/Vol] 1.1 mmol/L Normal 0.4-1.9 [facility] Comment on above: Performed By: #### L ACT ####[facility] Msxuqgewvw[address] [place], [place] [address]Dr. Tadeo Smyth LIPASEon 09-18-2022 Lipase [Catalytic activity/Vol] 75.0 U/L Normal 73.0-393.0 [facility] Comment on above: Performed By: #### L IPA, CMP, VIJI ####[facility] Kwodwibdpy[address] [place], [place] [address]Dr. Tadeo Smyth PROF 14(COMP METB)on 023 Albumin [Mass/Vol] 3.4 g/dL Normal 3.4-5.0 [facility] Comment on above: Performed By: #### L IPA, CMP, VIJI ####[facility] Sohcpepbvh5423 [place] [address]Dr. Tadeo Smyth Albumin/Globulin [Mass ratio] 0.9 {ratio} Normal [facility] Comment on above: Performed By: #### L IPA, CMP, VIJI ####[facility] Oxhadsyivx8877 [place] [address]Dr. Tadeo Smyth ALP [Catalytic activity/Vol] 164 U/L Critically high 46-116 [facility] Comment on above: Performed By: #### L IPA, CMP, VIJI ####[facility] Etqxvmprws9724 [place] [address]Dr. Tadeo Smyth ALT [Catalytic activity/Vol] 29 U/L Normal 14-59 [facility] Comment on above: Performed By: #### L IPA, CMP, VIJI ####[facility] Chkgzggyyp6030 [place] [id number]. Tadeo Smyth Anion gap [Moles/Vol] 12.3 mmol/L Normal Th e [facility] Comment on above: Performed By: #### L IPA, CMP, VIJI ####[facility] Vamzjtpdex5975 [place] [address]Dr. Tadeo Smyth AST [Catalytic activity/Vol] 30 U/L Normal 15-37 [facility] Comment on above: Performed By: #### L IPA, CMP, VIJI ####[facility] Raobyanqdt0756 [place] [address]Dr. Tadeo Smyth Bilirubin [Mass/Vol] 0.3 mg/dL Normal 0.2-1.0 [facility] Comment on above: Performed By: #### L IPA, CMP, VIJI ####[facility] Bsyvtumjqv7832 [place] [address]Dr. Tadeo Smyth Calcium [Mass/Vol] 8.9 mg/dL Normal 8.5-10.1 [facility] Comment on above: Performed By: #### L IPA, CMP, VIJI ####[facility] Iagicmorta9242 [place] [address]Dr. Tadeo Smyth Chloride [Moles/Vol] 103 mmol/L Normal 98-107 [facility] Comment on above: Performed By: #### L IPA, CMP, VIJI ####[facility] Hqojalsdls8771 [place] [address]Dr. Tadeo Smyth CO2 [Moles/Vol] 27.8 mmol/L Normal 21.0-32.0 [facility] Comment on above: Performed By: #### L IPA, CMP, VIJI ####[facility] Ebnkytqbsz9166 [place] [address]Dr. Tadeo Smyth Creatinine [Mass/Vol] 0.89 mg/dL Normal 0.55-1.02 [facility] Comment on above: Performed By: #### L IPA, CMP, VIJI ####[facility] Glzwogdwfr1898 [place] [address]Dr. Tadeo Smyth EGFR-AF PRYDEINIG >60 Normal >=60 [facility] Comment on above: Performed By: #### L IPA, CMP, VIJI ####[facility] Tplgwmkpoc6780 [place] [address]Dr. Tadeo Smyth EGFR-NON AF PRYDEINIG >60 Normal >=60 [facility] Comment on above: Performed By: #### L IPA, CMP, VIJI ####[facility] Qixowzejoe3670 [place] [address]Dr. Tadeo Smyth Globulin (S) [Mass/Vol] 3.9 g/dL Normal [facility] Comment on above: Performed By: #### L IPA, CMP, VIJI ####[facility] Etqxhlfcxz1345 [place] [address]Dr. Tadeo Smyth Glucose [Mass/Vol] 96 mg/dL Normal 74-106 [facility] Comment on above: Performed By: #### L IPA, CMP, VIJI ####[facility] Nwsdkducdf693[address] [place], [place] [address]Dr. Tadeo Smyth Potassium [Moles/Vol] 4.1 mmol/L Normal 3.5-5.1 [facility] Comment on above: Performed By: #### L IPA, CMP, VIJI ####[facility] Lmggmjnsqc7509[address] [place], [place] [address]Dr. Tadeo Smyth Protein [Mass/Vol] 7.3 g/dL Normal 6.4-8.2 [facility] Comment on above: Performed By: #### L IPA, CMP, VIJI ####[facility] Quxisfiayj5413 [place] [address]Dr. Tadeo Smyth Sodium [Moles/Vol] 139 mmol/L Normal 136-145 [facility] Comment on above: Performed By: #### L IPA, CMP, VIJI ####[facility] Fwjepoqilj5[address] [place], [place] [address]Dr. Tadeo Smyth Urea nitrogen [Mass/Vol] 19.0 mg/dL Critically high 7.0-18.0 [facility] Comment on above: Performed By: #### L IPA, CMP, VIJI ####[facility] Gumzdumftc075[address] [place], [place] [address]Dr. Tadeo Smyth Urea nitrogen/Creatinine [Mass ratio] 21.3 mg/mg Normal [facility] Comment on above: Performed By: #### L IPA, CMP, VIJI ####[facility] Elvvpebjtr[address] [place], [place] [address]Dr. Tadeo Smyth URINE MICROSCOPIC ONLYon BACTERIA TRACE Abnormal NONE SEEN [facility] Comment on above: Performed By: #### Matthew FRANCISCO UMICRO ####[facility] Fohnawxhpi9924 [place] [phone]. Tadeo Smyth Bacteria identified Cx Nom (U) NOT INDICATED Normal [facility] Comment on above: Performed By: #### Matthew FRANCISCO UMICRO ####[facility] Wqwdtrdwqp0513[address] [place], [place] [address]Dr. Tadeo Smyth CAST NONE SEEN Normal NONE SEEN [facility] Comment on above: Performed By: #### Matthew FRANCISCO UMICRO ####[facility] Avhonvjenk645[address] [place], [place] [address]Dr. Tadeo Smyth Crystals LM Nom (Urine sed) SEEN Abnormal NONE SEEN [facility] Comment on above: Performed By: #### Matthew FRANCISCO UMICRO ####[facility] Xvtbslusdt01[address] [place], [place] [address]Dr. Tadeo Smyth Epithelial cells LM Ql (Urine sed) RARE Normal NONE SEEN /RARE [facility] Comment on above: Performed By: #### Matthew FRANCISCO UMICRO ####[facility] Pzkeeikjpr[address] [place], [place] [address]Dr. Tadeo Smyth MUCOUS TRACE Abnormal NONE SEEN [facility] Comment on above: Performed By: #### Matthew RUYovanny UMICRO ####[facility] Qnptqqfcgp8[address] [place], [place] [address]Dr. Tadeo Smyth RBC 0-2 Normal 0-2 [facility] Comment on above: Performed By: #### E RUYovanny UMICRO ####[facility] Ixssuczlot7835[address] [place], [place] [address]Dr. Tadeo Smyth WBC 0-2 Abnormal NONE SEEN [facility] Comment on above: Performed By: #### E KAROL FRANCISCO ####[facility] Irmrzsbtlw5080 [place] [phone]. Tadeo Haja CBC AUTO DIFFon 09-14-2022 BASO # 0.0 103/ul Normal 0.0-0.1 [facility] Comment on above: Performed By: #### C BC ####[facility] Ihmxpfgneb5985 [place] [phone]. Tadeo Smyth Basophils/100 WBC (Bld) 0.3 % Normal 0.2-2.0 [facility] Comment on above: Performed By: #### C BC ####[facility] Lemzwsmiwa2991 [place] [address]Dr. Tadeo Smyth EO # 0.2 103/ul Normal 0.0-0.7 [facility] Comment on above: Performed By: #### C BC ####[facility] Bedsecmklw8973 [place] [address]Dr. Tadeo Smyth Eosinophils/100 WBC (Bld) 1.1 % Normal 0.9-7.0 [facility] Comment on above: Performed By: #### C BC ####[facility] Edeldsvazm40[address] [place], [place] [address]Dr. Margotnicole Smyth Erythrocyte distribution width (RBC) [Ratio] 13.7 % Normal 11.0-15.0 [facility] Comment on above: Performed By: #### C BC ####[facility] Dhcklepzuy3039 [place] [address]Dr. Tadeo Smyth Hematocrit (Bld) [Volume fraction] 41.3 % Normal 36.0-48.0 [facility] Comment on above: Performed By: #### C BC ####[facility] Eefikbmapt8013 [place] [phone]. Margotnicole Smyth Hemoglobin (Bld) [Mass/Vol] 13.6 g/dL Normal 12.0-16.0 [facility] Comment on above: Performed By: #### C BC ####[facility] Uumpasqgfk0546 [place] [address]Dr. Tadeo Smyth IG # 0.05 10e3/ul Critically high 0.00-0.03 [facility] Comment on above: Performed By: #### C BC ####[facility] Tdcgzieyie1212 [place] [phone]. Margotnicole Smyth IG % 0.4 % Normal 0.0-0.5 [facility] Comment on above: Performed By: #### C BC ####[facility] Cfdyqosilt8439 [place] [phone]. Margotnicole Smyth LYMPH # 2.2 103/ul Normal 1.2-3.8 [facility] Comment on above: Performed By: #### C BC ####[facility] Hccmnxigpk5373 [place] [phone] Margotnicole Smyth Lymphocytes/100 WBC (Bld) 16.3 % Critically low 20.5-60.0 [facility] Comment on above: Performed By: #### C BC ####[facility] Isuenvpxuq3979 [place] [phone]. Tadeo Smyth MANUAL DIFF REQ NO Normal [facility] Comment on above: Performed By: #### C BC ####[facility] Ejsgnbdcib7482 [place] [phone]. Tadeo Haja MCH (RBC) [Entitic mass] 28.9 pg Normal 26.7-34.0 [facility] Comment on above: Performed By: #### C BC ####[facility] Bhmvkylszg4477 [place] [phone]. Tadeo Haja MCHC (RBC) [Mass/Vol] 32.9 g/dL Normal 29.9-35.2 [facility] Comment on above: Performed By: #### C BC ####[facility] Bhhofttqjm5522 [place] [phone] Margotnicole Smyth MCV (RBC) [Entitic vol] 87.9 fL Normal 81.0-99.0 [facility] Comment on above: Performed By: #### C BC ####[facility] Mnqlpqhxcf3606 [place] [phone] Smyth MONO # 0.7 103/ul Normal 0.3-0.8 [facility] Comment on above: Performed By: #### C BC ####[facility] Vwjcdtabcs0334 [place] [phone]. Tadeo Smyth Monocytes/100 WBC (Bld) 5.1 % Normal 1.7-12.0 [facility] Comment on above: Performed By: #### C BC ####[facility] Wbyqsmcgob7231 [place] [phone]. Tadeo Smyth NEUT # 10.3 103/ul Critically high 1.4-6.5 [facility] Comment on above: Performed By: #### C BC ####[facility] Pflvybjhnm9977 [place] [address]Dr. Tadeo Smyth Neutrophils/100 WBC (Bld) 76.8 % Critically high 43.0-75.0 [facility] Comment on above: Performed By: #### C BC ####[facility] Rspeyrumzb5232 [place] [address]Dr. Tadeo Smyth Platelet mean volume (Bld) [Entitic vol] 8.8 fL Critically low 9.5-13.5 [facility] Comment on above: Performed By: #### C BC ####[facility] Sijxvdscaz7[address] [place], [place] [address]Dr. Tadeo Smyth PLT 438 103/ul Normal 150-450 [facility] Comment on above: Performed By: #### C BC ####[facility] Mrvmfutwrj5175 [place] [phone]. Tadeo Smyth RBC 4.70 106/ul Normal 4.20-5.40 [facility] Comment on above: Performed By: #### C BC ####[facility] Izdlebvkrr2754 [place] [phone]. Tadeo Smyth WBC 13.4 103/ul Critically high 4.0-11.0 [facility] Comment on above: Performed By: #### C BC ####[facility] Lzfjnpfjcx1524 [place] [phone] Tadeo Smyth ER URINE PROFILEon 3 Bilirubin Ql (U) Negative Normal NEGATIVE [facility] Comment on above: Performed By: #### RANDI MERCHANTICRO ####[facility] Luboqfebfq5920 [place] [address]Dr. Tadeo Smyth Clarity (U) CLEAR Normal CLEAR [facility] Comment on above: Performed By: #### Matthew FRANCISCO UMICRO ####[facility] Ubytbpzqla7591 [place] [address]Dr. Tadeo Smyth Color (U) LT. YELLOW Normal YELLOW [facility] Comment on above: Performed By: #### Matthew FRANCISCO UMICRO ####[facility] Eiamgafpnw1409 [place] [address]Dr. Tadeo Smyth ERUAHD A micrscopic examina tion will be performed if indicated. Normal [facility] Comment on above: Performed By: #### Matthew FRANCISCO UMCHINEDURO ####[facility] Gocznprpug8723 [place] [address]Dr. Tadeo Smyth Glucose Ql (U) Negative Normal NEGATIVE [facility] Comment on above: Performed By: #### Matthew FRANCISCO ICRO ####[facility] Ldnshjblgl[address] [place], [place] [address]Dr. Tadeo Smyth Hemoglobin Ql (U) TRACE-INTACT Abnormal NEGATIVE [facility] Comment on above: Performed By: #### Matthew FRANCISCO UMICRO ####[facility] Jxmnjbsdse1067 [place] [address]Dr. Tadeo Smyth Ketones Ql (U) Negative Normal NEGATIVE [facility] Comment on above: Performed By: #### Matthew FRANCISCO UMICRO ####[facility] Nxfvmcsgfk[address] [place], [place] [address]Dr. Tadeo Smyth LEUKOCYTES Negative Normal NEGATIVE [facility] Comment on above: Performed By: #### RANDI MERCHANTICRO ####[facility] Zguvoqnihu[address] [place], [place] [address]Dr. Tadeo Smyth Nitrite Ql (U) Negative Normal NEGATIVE [facility] Comment on above: Performed By: #### SANDRO MERCHANTRO ####[facility] Btnkatlsle9[address] [place], [place] [address]Dr. Tadeo Smyth pH (U) 6.5 [pH] Normal 5-9 [facility] Comment on above: Performed By: #### KAROL MERCHANT ####[facility] Niatnrtras2460 [place] [address]Dr. Tadeo Smyth SPEC GRAVITY 1.020 Normal 1.005-<=1.0 25 [facility] Comment on above: Performed By: #### KAROL MERCHANT ####[facility] Vpxfigekvd4957 [place] [address]Dr. Tadeo Smyth UA PROTEIN Negative Normal NEGATIVE/ TRACE [facility] Comment on above: Performed By: #### KAROL MERCHANT ####[facility] Uzbuydrrqq5185 [place] [address]Dr. Tadeo Smyth UR MICRO IND INDICATED Normal [facility] Comment on above: Performed By: #### KAROL MERCHANT ####[facility] Udlqdifoou1000 [place] [address]Dr. Tadeo Smyth Urobilinogen Qn (U) 0.2 {Benito'U}/dL Normal 0.2 - 1. 0 [facility] Comment on above: Performed By: #### KAROL MERCHANT ####[facility] Jdmihxqhde5556 [place] [address]Dr. Tadeo Smyth LIPASEon 09-14-2022 Lipase [Catalytic activity/Vol] 117.0 U/L Normal 73.0-393.0 [facility] Comment on above: Performed By: #### H STROPN, CMP, LIPA ####[facility] Pvxirghdpi8123 [place] [address]DrNeo Smyth PROF 14(COMP METB)on 023 Albumin [Mass/Vol] 3.5 g/dL Normal 3.4-5.0 [facility] Comment on above: Performed By: #### H STROPN, CMP, LIPA ####[facility] Tihidqxtfl1518 [place] [address]Dr. Tadeo Smyth Albumin/Globulin [Mass ratio] 0.8 {ratio} Normal [facility] Comment on above: Performed By: #### H STROPN, CMP, LIPA ####[facility] Ectbzfvjkn5973 [place] [address]Dr. Tadeo Smyth ALP [Catalytic activity/Vol] 180 U/L Critically high 46-116 [facility] Comment on above: Performed By: #### H STROPN, CMP, LIPA ####[facility] Uxznfjelbo9270 [place] [address]Dr. Tadeo Smyth ALT [Catalytic activity/Vol] 25 U/L Normal 14-59 [facility] Comment on above: Performed By: #### H STROPN, CMP, LIPA ####[facility] Lafkrljbdi3204 [place] [address]Dr. Tadeo Smyth Anion gap [Moles/Vol] 14.4 mmol/L Normal [facility] Comment on above: Performed By: #### H STROPN, CMP, LIPA ####[facility] Vpjtdiviev[address] [place], [place] [address]Dr. Tadeo Smyth AST [Catalytic activity/Vol] 14 U/L Critically low 15-37 [facility] Comment on above: Performed By: #### H STROPN, CMP, LIPA ####[facility] Uzgjmakkux2215 [place] [address]Dr. Tadeo Smyth Bilirubin [Mass/Vol] 0.2 mg/dL Normal 0.2-1.0 [facility] Comment on above: Performed By: #### H STROPN, CMP, LIPA ####[facility] Ltebghguhx6430 [place] [address]Dr. Tadeo Smyth Calcium [Mass/Vol] 9.4 mg/dL Normal 8.5-10.1 [facility] Comment on above: Performed By: #### H STROPN, CMP, LIPA ####[facility] Phopnlfcxr7078 [place] [address]Dr. Tadeo Smyth Chloride [Moles/Vol] 107 mmol/L Normal 98-107 [facility] Comment on above: Performed By: #### H STROPN, CMP, LIPA ####[facility] Mzfdqwkbyc9800 [place] [phone]. Tadeo Smyth CO2 [Moles/Vol] 23.9 mmol/L Normal 21.0-32.0 [facility] Comment on above: Performed By: #### H STROPN, CMP, LIPA ####[facility] Pvciaztutx0617 [place] [phone]. Tadeo Smyth Creatinine [Mass/Vol] 0.91 mg/dL Normal 0.55-1.02 [facility] Comment on above: Performed By: #### H STROPN, CMP, LIPA ####[facility] Jazsunccnq1297 [place] [address]Dr. Tadeo Smyth EGFR-AF PRYDEINIG >60 Normal >=60 [facility] Comment on above: Performed By: #### H STROPN, CMP, LIPA ####[facility] Dayhnukggq7806 [place] [address]Dr. Tadeo Smyth EGFR-NON AF PRYDEINIG >60 Normal >=60 [facility] Comment on above: Performed By: #### H STROPN, CMP, LIPA ####[facility] Tgkmqctxuu6750 [place] [address]Dr. Tadeo Smyth Globulin (S) [Mass/Vol] 4.2 g/dL Normal [facility] Comment on above: Performed By: #### H STROPN, CMP, LIPA ####[facility] Qezrrrmgye1197 [place] [address]Dr. Tadeo Smyth Glucose [Mass/Vol] 101 mg/dL Normal 74-106 [facility] Comment on above: Performed By: #### H STROPN, CMP, LIPA ####[facility] Czgohzdaum1781 [place] [phone]. Tadeo Smyth Potassium [Moles/Vol] 3.3 mmol/L Critically low 3.5-5.1 [facility] Comment on above: Performed By: #### H STROPN, CMP, LIPA ####[facility] Zgmioytfbw8725 [place] [address]Dr. Tadeo Smyth Protein [Mass/Vol] 7.7 g/dL Normal 6.4-8.2 [facility] Comment on above: Performed By: #### H STROPN, CMP, LIPA ####[facility] Ugszmvwzdy6733 [place] [phone]. Tadeo Smyth Sodium [Moles/Vol] 142 mmol/L Normal 136-145 [facility] Comment on above: Performed By: #### H STROPN, CMP, LIPA ####[facility] Fbtimiysnb4135 [place] [phone]. Tadeo Smyth Urea nitrogen [Mass/Vol] 17.0 mg/dL Normal 7.0-18.0 [facility] Comment on above: Performed By: #### H STROPN, CMP, LIPA ####[facility] Omejjnckpd1992 [place] [address]Dr. Tadeo Smyth Urea nitrogen/Creatinine [Mass ratio] 18.7 mg/mg Normal [facility] Comment on above: Performed By: #### H STROPN, CMP, LIPA ####[facility] Hookyngrxl2539 [place] [address]Dr. Tadeo Smyth TROPONIN, HIGH SENSITIVITYon 09-14-2022 HSTROP 46.6 pg/mL Normal 4.0-51.3 [facility] Comment on above: Result Comment: CUT- OFF POINTS HAVE BEEN ESTABLISHED BASED ON THE FOURTH UNIVERSAL DEFINITIONS OF MYOCARDIALINFARCTION. THE UPPER REFERENCE LIMIT (URL) OF TROPONIN, DEFINED THE 99TH PERCENTILE OFcTnI DISTRIBUTION IN A REFERENCE POPULATION, HAS BEEN CONFIRMED THE DECISION THRESHOLDFOR GA DIAGNOSIS. Performed By: #### H STROPN, CMP, LIPA ####[facility] Aesnsgqedc8125 [place] [phone]. Tadeo Smyth URINE MICROSCOPIC ONLYon BACTERIA NONE SEEN Normal NONE SEEN [facility] Comment on above: Performed By: #### KAROL MERCHANT ####[facility] Fnxjumvago2747 [place] [phone]. Tadeo Smyth Bacteria identified Cx Nom (U) NOT INDICATED Normal [facility] Comment on above: Performed By: #### KAROL MERCHANT ####[facility] Kabqvzchig9191 [place] [address]Dr. Tadeo Smyth CAST NONE SEEN Normal NONE SEEN [facility] Comment on above: Performed By: #### KAROL MERCHANT ####[facility] Wghnfpvlen0511 [place] [address]Dr. Margotnicole Smyth Crystals LM Nom (Urine sed) NONE SEEN Normal NONE SEEN [facility] Comment on above: Performed By: #### KAROL MERCHANT ####[facility] Lhaktyhbsp2707 [place] [address]Dr. Tadeo Smyth Epithelial cells LM Ql (Urine sed) FEW Abnormal NONE SEEN /RARE [facility] Comment on above: Performed By: #### KAROL MERCHANT ####[facility] Yimpangshk8913 [place] [address]Dr. Tadeo Smyth MUCOUS MODERATE Abnormal NONE SEEN [facility] Comment on above: Performed By: #### KAROL MERCHANT ####[facility] Bkqaeyfejt9600 [place] [address]Dr. Tadeo Smyth RBC 0-2 Normal 0-2 [facility] Comment on above: Performed By: #### KAROL MERCHANT ####[facility] Izlktieywr[address] [place], [place] [address]Dr. Tadeo Smyth WBC NONE SEEN Normal NONE SEEN [facility] Comment on above: Performed By: #### KAROL MERCHANT ####[facility] Lklzbwypdj2960 [place] [address]Dr. Margotnicole Smyth XR ABD FLAT UP_PA Kasey 09-14 XR ABD FLAT UP_PA CH Normal [facility] VC COMP CONSULTATIONon 09-06 VC COMP CONSULTATION Normal [facility] VC VENOUS REFLUX MACARIO LMTon 0 09-06-2022 VC VENOUS REFLUX MACARIO LMT Normal [facility] XR KUB 1 VIEWon 08-18-2022 XR KUB 1 VIEW Normal [facility] US RUBENS DOP LEG RTon 08-11-20 US RUBENS DOP LEG RT Normal [facility] AMYLASEon 08-08-2022 Amylase [Catalytic activity/Vol] 64 U/L Normal 25-115 [facility] Comment on above: Performed By: #### C MP, VIJI, LIPA, CMADM ####[facility] Pvkqgaswfo[address] [place] [address]Dr. Tadeo Smyth CARDIAC NORA ADMITon 022 CK [Catalytic activity/Vol] 127 U/L Normal 26-192 [facility] Comment on above: Performed By: #### C MP, VIJI, LIPA, CMADM ####[facility] Manqhraugw65[address] [place] [address]Dr. Tadeo Smyth CK.MB [Mass/Vol] 1.71 ng/mL Normal <=3.60 [facility] Comment on above: Performed By: #### C MP, VIJI, LIPA, CMADM ####[facility] Nmozyqhoxf07[address] [place] [address]Dr. Tadeo Smyth HSTROP 36.7 pg/mL Normal 4.0-51.3 [facility] Comment on above: Result Comment: CUT- OFF POINTS HAVE BEEN ESTABLISHED BASED ON THE FOURTH UNIVERSAL DEFINITIONS OF MYOCARDIALINFARCTION. THE UPPER REFERENCE LIMIT (URL) OF TROPONIN, DEFINED THE 99TH PERCENTILE OFcTnI DISTRIBUTION IN A REFERENCE POPULATION, HAS BEEN CONFIRMED THE DECISION THRESHOLDFOR GA DIAGNOSIS. Performed By: #### C MP, VIJI, LIPA, CMADM ####[facility] Spjnzwwfvg95[address] [place] [address]Dr. Tadeo Smyth AAKASH 23 ng/mL Normal 9-82 [facility] Comment on above: Performed By: #### C MP, VIJI, LIPA, CMADM ####[facility] Byhfugzilr50[address] [place] [address]Dr. Margotnicole Smyth CBC AUTO DIFFon 08-08-2022 BASO # 0.0 103/ul Normal 0.0-0.1 [facility] Comment on above: Performed By: #### C BC ####[facility] Jygrjerizf[address] [place] [address]Dr. Margotnicole Smyth Basophils/100 WBC (Bld) 0.4 % Normal 0.2-2.0 [facility] Comment on above: Performed By: #### C BC ####[facility] Nqwvajdlpx6579 [place] [id number]. Tadeo Smyth EO # 0.1 103/ul Normal 0.0-0.7 [facility] Comment on above: Performed By: #### C BC ####[facility] Lenrfkbooh[address] [place], [place] [address]Dr. Tadeo Smyth Eosinophils/100 WBC (Bld) 1.5 % Normal 0.9-7.0 [facility] Comment on above: Performed By: #### C BC ####[facility] Wjrtsvhcpc[address] [place], [place] [address]Dr. Tadeo Smyth Erythrocyte distribution width (RBC) [Ratio] 13.5 % Normal 11.0-15.0 [facility] Comment on above: Performed By: #### C BC ####[facility] Dctvraclpx4[address] [place], [place] [address]Dr. Tadeo Smyth Hematocrit (Bld) [Volume fraction] 37.0 % Normal 36.0-48.0 [facility] Comment on above: Performed By: #### C BC ####[facility] Tdbidzmklf[address] [place], [place] [address]Dr. Tadeo Smyth Hemoglobin (Bld) [Mass/Vol] 12.0 g/dL Normal 12.0-16.0 [facility] Comment on above: Performed By: #### C BC ####[facility] Lesenyfpfq88[address] [place], [place] [address]Dr. Tadeo Smyth IG # 0.02 10e3/ul Normal 0.00-0.03 [facility] Comment on above: Performed By: #### C BC ####[facility] Uorrwwdjit3[address] [place], [place] [address]Dr. Tadeo Smyth IG % 0.3 % Normal 0.0-0.5 [facility] Comment on above: Performed By: #### C BC ####[facility] Pdnkclqbrb36[address] [place], [place] [address]Dr. Tadeo Smyth LYMPH # 2.0 103/ul Normal 1.2-3.8 [facility] Comment on above: Performed By: #### C BC ####[facility] Rscjqykgsr7824 [place] [phone]. Tadeo Smyth Lymphocytes/100 WBC (Bld) 27.9 % Normal 20.5-60.0 [facility] Comment on above: Performed By: #### C BC ####[facility] Shxnikpypt0665 [place] [phone]. Tadeo Smyth MANUAL DIFF REQ NO Normal The [facility] Comment on above: Performed By: #### C BC ####[facility] Mqtdlzotub7284 [place] [phone]. Tadeo Haja MCH (RBC) [Entitic mass] 28.9 pg Normal 26.7-34.0 [facility] Comment on above: Performed By: #### C BC ####[facility] Undfbncaos[address] [place], [place] [address]Dr. Tadeo Haja MCHC (RBC) [Mass/Vol] 32.4 g/dL Normal 29.9-35.2 [facility] Comment on above: Performed By: #### C BC ####[facility] Qwuwmbvltd[address] [place], [place] [address]Dr. Tadeo Smyth MCV (RBC) [Entitic vol] 89.2 fL Normal 81.0-99.0 [facility] Comment on above: Performed By: #### C BC ####[facility] Djekvsohug[address] [place], [place] [address]Dr. Tadeo Haja MONO # 0.5 103/ul Normal 0.3-0.8 [facility] Comment on above: Performed By: #### C BC ####[facility] Bnuewxvagf[address] [place], [place] [address]Dr. Tadeo Haja Monocytes/100 WBC (Bld) 6.7 % Normal 1.7-12.0 [facility] Comment on above: Performed By: #### C BC ####[facility] Aicqkvdhhh3[address] [place], [place] [address]Dr. Tadeo Smyth NEUT # 4.5 103/ul Normal 1.4-6.5 [facility] Comment on above: Performed By: #### C BC ####[facility] Askbpdarpy5979 [place] [phone]. Tadeo Smyth Neutrophils/100 WBC (Bld) 63.2 % Normal 43.0-75.0 [facility] Comment on above: Performed By: #### C BC ####[facility] Unqimyezqo2572 [place] [phone]. Tadeo Smyth Platelet mean volume (Bld) [Entitic vol] 9.0 fL Critically low 9.5-13.5 [facility] Comment on above: Performed By: #### C BC ####[facility] Bogfiidmek1766 [place] [phone]. Tadeo Smyth PLT 382 103/ul Normal 150-450 [facility] Comment on above: Performed By: #### C BC ####[facility] Csbibhvdxr1086 [place] [phone]. Tadeo Smyth RBC 4.15 106/ul Critically low 4.20-5.40 [facility] Comment on above: Performed By: #### C BC ####[facility] Owtveglsck4[address] [place], [place] [address]Dr. Tadeo Smyth WBC 7.1 103/ul Normal 4.0-11.0 [facility] Comment on above: Performed By: #### C BC ####[facility] Kgaisoqzkf7797 [place] [phone]. Tadeo Smyth CT ABD/PELV W CONon 08-08-[address] ABD/PELV W CON Normal The [facility] ER URINE PROFILEon 2 Bilirubin Ql (U) Negative Normal NEGATIVE [facility] Comment on above: Performed By: #### SANDRO MERCHANTRO ####[facility] Bgwxfkumic7[address] [place], [place] [address]Dr. Tadeo Smyth Clarity (U) CLEAR Normal CLEAR [facility] Comment on above: Performed By: #### SANDRO MERCHANTRO ####[facility] Rniiojqren4789 [place] [phone]. Tadeo Smyth Color (U) YELLOW Normal YELLOW [facility] Comment on above: Performed By: #### SANDRO MERCHANTRO ####[facility] Kpcdcnszel4246 [place] [address]Dr. Tadeo ENG A micrscopic examina tion will be performed if indicated. Normal [facility] Comment on above: Performed By: #### SANDRO MERCHANTRO ####[facility] Ecucwcupqy8240 [place] [address]Dr. Tadeo Smyth Glucose Ql (U) Negative Normal NEGATIVE The [facility] Comment on above: Performed By: #### SANDRO MERCHANTRO ####[facility] Zlsncpqcyb[address] [place], [place] [address]Dr. Tadeo Smyth Hemoglobin Ql (U) TRACE-LYSED Abnormal NEGATIVE The [facility] Comment on above: Performed By: #### SANDRO MERCHANTRO ####[facility] Pwfckvzfhk[address] [place], [place] [address]Dr. Tadeo Smyth Ketones Ql (U) TRACE Abnormal NEGATIVE The [facility] Comment on above: Performed By: #### SANDRO MERCHANTRO ####[facility] Fapcjtctny[address] [place], [place] [address]Dr. Tadeo Smyth LEUKOCYTES Negative Normal NEGATIVE [facility] Comment on above: Performed By: #### SANDRO MERCHANTRO ####[facility] Nlednzoiay0[address] [place], [place] [address]Dr. Tadeo Smyth Nitrite Ql (U) Negative Normal NEGATIVE The [facility] Comment on above: Performed By: #### SANDRO MERCHANTRO ####[facility] Mslowvtqxa[address] [place], [place] [address]Dr. Tadeo Smyth pH (U) 6.0 [pH] Normal 5-9 [facility] Comment on above: Performed By: #### SANDRO MERCHANTRO ####[facility] Lmqfduuqwl6934 [place] [address]Dr. Tadeo Smyth SPEC GRAVITY >=1.030 Abnormal 1.005-<=1.0 25 [facility] Comment on above: Performed By: #### KAROL MERCHANT ####[facility] Wqjgxkaate59[address] [place] [address]Dr. Tadeo Smyth UA PROTEIN TRACE Normal NEGATIVE/ TRACE [facility] Comment on above: Performed By: #### KAROL MERCHANT ####[facility] Isfwmfvvnj8755 [place] [address]Dr. Tadeo Smyth UR MICRO IND INDICATED Normal [facility] Comment on above: Performed By: #### KAROL MERCHANT ####[facility] Kxfoiigcom9453 [place] [address]Dr. Tadeo Smyth Urobilinogen Qn (U) 0.2 {Benito'U}/dL Normal 0.2 - 1. 0 [facility] Comment on above: Performed By: #### KAROL MERCHANT ####[facility] Kkfqqycahq5155 [place] [address]Dr. Tadeo Smyth LACTATE/LACTIC ACIDon 2021 Lactate [Moles/Vol] 1.3 mmol/L Normal 0.4-1.9 [facility] Comment on above: Performed By: #### L ACT ####[facility] Iofuhpmjnu9387 [place] [address]Dr. Tadeo Smyth LIPASEon 08-08-2022 Lipase [Catalytic activity/Vol] 120.0 U/L Normal 73.0-393.0 [facility] Comment on above: Performed By: #### C MP, VIJI, LIPA, CMADM ####[facility] Xhztjgjxar0816 [place] [address]Dr. Tadeo Smtyh PROF 14(COMP METB)on 022 Albumin [Mass/Vol] 3.8 g/dL Normal 3.4-5.0 [facility] Comment on above: Performed By: #### C MP, VIJI, LIPA, CMADM ####[facility] Vyqnhzorxu6881 [place] [address]Dr. Tadeo Smyth Albumin/Globulin [Mass ratio] 1.1 {ratio} Normal [facility] Comment on above: Performed By: #### C MP, VIJI, LIPA, CMADM ####[facility] Glhdgxgxhb5[address] [place] [address]Dr. Tadeo Smyth ALP [Catalytic activity/Vol] 145 U/L Critically high 46-116 [facility] Comment on above: Performed By: #### C MP, VIJI, LIPA, CMADM ####[facility] Fpuyibnlzt4607 [place] [address]Dr. Tadeo Smyth ALT [Catalytic activity/Vol] 30 U/L Normal 14-59 [facility] Comment on above: Performed By: #### C MP, VIJI, LIPA, CMADM ####[facility] Zvgjtrvhgn1509 [place] [address]Dr. Tadeo Smyth Anion gap [Moles/Vol] 11.5 mmol/L Normal Th e [facility] Comment on above: Performed By: #### C MP, VIJI, LIPA, CMADM ####[facility] Jxrabudmsp1332 [place] [address]Dr. Tadeo Smyth AST [Catalytic activity/Vol] 17 U/L Normal 15-37 [facility] Comment on above: Performed By: #### C MP, VIJI, LIPA, CMADM ####[facility] Urptsqnbzy6629 [place] [address]Dr. Tadeo Smyth Bilirubin [Mass/Vol] 0.1 mg/dL Critically low 0.2-1.0 [facility] Comment on above: Performed By: #### C MP, VIJI, LIPA, CMADM ####[facility] Edflcourzz1323 [place] [address]Dr. Tadeo Smyth Calcium [Mass/Vol] 8.9 mg/dL Normal 8.5-10.1 [facility] Comment on above: Performed By: #### C MP, VIJI, LIPA, CMADM ####[facility] Tdrhmncrpc8625 [place] [address]Dr. Tadeo Smyth Chloride [Moles/Vol] 104 mmol/L Normal 98-107 [facility] Comment on above: Performed By: #### C MP, VIJI, LIPA, CMADM ####[facility] Cjusagqcpt5652 [place] [address]Dr. Tadeo Smyth CO2 [Moles/Vol] 27.2 mmol/L Normal 21.0-32.0 [facility] Comment on above: Performed By: #### C MP, VIJI, LIPA, CMADM ####[facility] Mhbrghoyyj3206 [place] [address]Dr. Tadeo Smyth Creatinine [Mass/Vol] 0.90 mg/dL Normal 0.55-1.02 [facility] Comment on above: Performed By: #### C MP, VIJI, LIPA, CMADM ####[facility] Gnyyniwuop8582 [place] [address]Dr. Tadeo Smyth EGFR-AF PRYDEINIG >60 Normal >=60 [facility] Comment on above: Performed By: #### C MP, VIJI, LIPA, CMADM ####[facility] Xhcppjzgyo0195 [place] [address]Dr. Tadeo Smyth EGFR-NON AF PRYDEINIG >60 Normal >=60 [facility] Comment on above: Performed By: #### C MP, VIJI, LIPA, CMADM ####[facility] Gvqjahtrrm8530 [place] [address]Dr. Tadeo Smyth Globulin (S) [Mass/Vol] 3.5 g/dL Normal [facility] Comment on above: Performed By: #### C MP, VIJI, LIPA, CMADM ####[facility] Eczenebvle8593 [place] [address]Dr. Tadeo Smyth Glucose [Mass/Vol] 98 mg/dL Normal 74-106 [facility] Comment on above: Performed By: #### C MP, VIJI, LIPA, CMADM ####[facility] Axqanpkqkm7521 [place] [address]Dr. Tadeo Smyth Potassium [Moles/Vol] 3.7 mmol/L Normal 3.5-5.1 [facility] Comment on above: Performed By: #### C MP, VIJI, LIPA, CMADM ####[facility] Pqyfwffgos3601 [place] [address]Dr. Tadeo Smyth Protein [Mass/Vol] 7.3 g/dL Normal 6.4-8.2 [facility] Comment on above: Performed By: #### C MP, VIJI, LIPA, CMADM ####[facility] Czzlvddjmd2414 [place] [address]Dr. Tadeo Smyth Sodium [Moles/Vol] 139 mmol/L Normal 136-145 [facility] Comment on above: Performed By: #### C MP, VIJI, LIPA, CMADM ####[facility] Rmelhmvbms5154 [place] [address]Dr. Tadeo Smyth Urea nitrogen [Mass/Vol] 25.0 mg/dL Critically high 7.0-18.0 [facility] Comment on above: Performed By: #### C MP, VIJI, LIPA, CMADM ####[facility] Mtnmerkdck7605 [place] [address]Dr. Tadeo Smyth Urea nitrogen/Creatinine [Mass ratio] 27.8 mg/mg Normal [facility] Comment on above: Performed By: #### C MP, VIJI, LIPA, CMADM ####[facility] Hicjcydlcn7726 [place] [address]Dr. Tadeo Smyth URINE MICROSCOPIC ONLYon BACTERIA NONE SEEN Normal NONE SEEN [facility] Comment on above: Performed By: #### KAROL MERCHANT ####[facility] Slujpczhpn1631 [place] [address]Dr. Tadeo Smyth Bacteria identified Cx Nom (U) NOT INDICATED Normal [facility] Comment on above: Performed By: #### KAROL MERCHANT ####[facility] Hjsspaigrs2782 [place] [address]Dr. Tadeo Smyth CAST NONE SEEN Normal NONE SEEN [facility] Comment on above: Performed By: #### KAROL MERCHANT ####[facility] Xydfzjvhao5038 [place] [address]Dr. Tadeo Smyth Crystals LM Nom (Urine sed) NONE SEEN Normal NONE SEEN [facility] Comment on above: Performed By: #### KAROL MERCHANT ####[facility] Pjrrpudguz69[address] [place], [place] [address]Dr. Tadeo Smyth Epithelial cells LM Ql (Urine sed) FEW Abnormal NONE SEEN /RARE [facility] Comment on above: Performed By: #### KAROL MERCHANT ####[facility] Llmbuicdab67[address] [place], [place] [address]Dr. Tadeo Smyth MUCOUS NONE SEEN Normal NONE SEEN [facility] Comment on above: Performed By: #### SANDRO MERCHANTRO ####[facility] Fuhxbnkbni8[address] [place], [place] [address]Dr. Tadeo Smyth RBC 2-5 Abnormal 0-2 [facility] Comment on above: Performed By: #### KAROL MERCHANT ####[facility] Gvwdajgamv99[address] [place], [place] [address]Dr. Tadeo Smyth WBC NONE SEEN Normal NONE SEEN [facility] Comment on above: Performed By: #### KAROL MERCHANT ####[facility] Wgihgxeaik245[address] [place], [place] [address]Dr. Tadeo Smyth AMYLASEon 07-21-2022 Amylase [Catalytic activity/Vol] 49 U/L Normal 25-115 [facility] Comment on above: Performed By: #### L IPA, VIJI, CMP ####[facility] Mdjptfuzfp20[address] [place], [place] [address]Dr. Tadeo Smyth CBC AUTO DIFFon 07-21-2022 BASO # 0.0 103/ul Normal 0.0-0.1 [facility] Comment on above: Performed By: #### C BC ####[facility] Bxglbsibtj[address] [place], [place] [address]Dr. Tadeo Smyth Basophils/100 WBC (Bld) 0.6 % Normal 0.2-2.0 [facility] Comment on above: Performed By: #### C BC ####[facility] Qmweswxoqd6418[address] [place], [place] [address]Dr. Tadeo Smyth EO # 0.2 103/ul Normal 0.0-0.7 [facility] Comment on above: Performed By: #### C BC ####[facility] Zxbdqqvhpr029[address] [place], [place] [address]Dr. Tadeo Smyth Eosinophils/100 WBC (Bld) 3.1 % Normal 0.9-7.0 [facility] Comment on above: Performed By: #### C BC ####[facility] Xjjbjcqyud1840 [place] [address]Dr. Tadeo Smyth Erythrocyte distribution width (RBC) [Ratio] 13.2 % Normal 11.0-15.0 [facility] Comment on above: Performed By: #### C BC ####[facility] Byhqhnwyta5[address] [place], [place] [address]Dr. Tadeo Smyth Hematocrit (Bld) [Volume fraction] 35.7 % Critically low 36.0-48.0 [facility] Comment on above: Performed By: #### C BC ####[facility] Bjikuuqpwt[address] [place], [place] [address]Dr. Tadeo Smyth Hemoglobin (Bld) [Mass/Vol] 11.6 g/dL Critically low 12.0-16.0 [facility] Comment on above: Performed By: #### C BC ####[facility] Jiwybvxoti5[address] [place], [place] [address]Dr. Tadeo Smyth IG # 0.01 10e3/ul Normal 0.00-0.03 [facility] Comment on above: Performed By: #### C BC ####[facility] Omdnkojevr6[address] [place], [place] [address]Dr. Tadeo Smyth IG % 0.2 % Normal 0.0-0.5 [facility] Comment on above: Performed By: #### C BC ####[facility] Mgugvznisl080[address] [place], [place] [address]Dr. Tadeo Smyth LYMPH # 1.9 103/ul Normal 1.2-3.8 [facility] Comment on above: Performed By: #### C BC ####[facility] Uyzqxuoxlj5[address] [place], [place] [address]Dr. Tadeo Smyth Lymphocytes/100 WBC (Bld) 34.8 % Normal 20.5-60.0 [facility] Comment on above: Performed By: #### C BC ####[facility] Mqmcesrapg05[address] [place], [place] [address]Dr. Margotnicole Smyth MANUAL DIFF REQ NO Normal The [facility] Comment on above: Performed By: #### C BC ####[facility] Eznolcxbuh5815 [place] [address]Dr. Tadeo Haja MCH (RBC) [Entitic mass] 29.1 pg Normal 26.7-34.0 [facility] Comment on above: Performed By: #### C BC ####[facility] Hdkkownmow3128 [place] [address]Dr. Tadeo Haja MCHC (RBC) [Mass/Vol] 32.5 g/dL Normal 29.9-35.2 [facility] Comment on above: Performed By: #### C BC ####[facility] Btokouvben5522 [place] [address]Dr. Margotnicole Smyth MCV (RBC) [Entitic vol] 89.7 fL Normal 81.0-99.0 [facility] Comment on above: Performed By: #### C BC ####[facility] Bfwmynjnji0681 [place] [address]Dr. Tadeo Smyth MONO # 0.3 103/ul Normal 0.3-0.8 [facility] Comment on above: Performed By: #### C BC ####[facility] Nldizocxba9383 [place] [address]Dr. Tadeo mSyth Monocytes/100 WBC (Bld) 6.1 % Normal 1.7-12.0 [facility] Comment on above: Performed By: #### C BC ####[facility] Eawsewdvhe3644 [place] [address]DrNeo Smyth NEUT # 3.0 103/ul Normal 1.4-6.5 [facility] Comment on above: Performed By: #### C BC ####[facility] Pmyxzuehhh0817 [place] [address]DrNeo Smyth Neutrophils/100 WBC (Bld) 55.2 % Normal 43.0-75.0 [facility] Comment on above: Performed By: #### C BC ####[facility] Eynfalqtlo[address] [place], [place] [address]Dr. Tadeo Smyth Platelet mean volume (Bld) [Entitic vol] 9.0 fL Critically low 9.5-13.5 [facility] Comment on above: Performed By: #### C BC ####[facility] Kdaibzdwye8602 [place] [address]Dr. Tadeo Smyth PLT 358 103/ul Normal 150-450 [facility] Comment on above: Performed By: #### C BC ####[facility] Ydpziuodft2121 [place] [address]Dr. Tdaeo Smyth RBC 3.98 106/ul Critically low 4.20-5.40 [facility] Comment on above: Performed By: #### C BC ####[facility] Psxtuxaewo9525 [place] [address]Dr. Tadeo Smyth WBC 5.4 103/ul Normal 4.0-11.0 [facility] Comment on above: Performed By: #### C BC ####[facility] Xxuqliuxpu9551 [place] [address]Dr. Tadeo Haja LIPASEon 07-21-2022 Lipase [Catalytic activity/Vol] 54.0 U/L Critically low 73.0-393.0 [facility] Comment on above: Performed By: #### L VIJI HALL, CMP ####[facility] Fckqlzelcb5607 [place] [address]Dr. Margotnicole Smyth PROF 14(COMP METB)on 022 Albumin [Mass/Vol] 3.5 g/dL Normal 3.4-5.0 [facility] Comment on above: Performed By: #### L VIJI HALL, CMP ####[facility] Elvtnhwymu6895 [place] [address]Dr. Margotnicole Smyth Albumin/Globulin [Mass ratio] 0.9 {ratio} Normal [facility] Comment on above: Performed By: #### L VIJI HALL, CMP ####[facility] Xvfzzdaotg3572 [place] [address]Dr. Margotnicole Smyth ALP [Catalytic activity/Vol] 127 U/L Critically high 46-116 [facility] Comment on above: Performed By: #### L IPA, VIJI, CMP ####[facility] Yjiajgvkvj5303 [place] [address]Dr. Tadeo Smyth ALT [Catalytic activity/Vol] 16 U/L Normal 14-59 [facility] Comment on above: Performed By: #### L IPA, VIJI, CMP ####[facility] Gbqsbfmmpm7694 [place] [address]Dr. Tadeo Smyth Anion gap [Moles/Vol] 10.6 mmol/L Normal [facility] Comment on above: Performed By: #### L IPA, VIJI, CMP ####[facility] Fuafzvhvyi[address] [place], [place] [address]Dr. Tadeo Smyth AST [Catalytic activity/Vol] 16 U/L Normal 15-37 [facility] Comment on above: Performed By: #### L IPA VIJI, CMP ####[facility] Sexzqvnnrt[address] [place], [place] [address]Dr. Tadeo Smyth Bilirubin [Mass/Vol] 0.3 mg/dL Normal 0.2-1.0 [facility] Comment on above: Performed By: #### L IPA VIJI, CMP ####[facility] Rlfrocbpyu[address] [place], [place] [address]Dr. Tadeo Smyth Calcium [Mass/Vol] 9.1 mg/dL Normal 8.5-10.1 [facility] Comment on above: Performed By: #### L IPA, VIJI, CMP ####[facility] Klzeciktey[address] [place], [place] [address]Dr. Tadeo Smyth Chloride [Moles/Vol] 104 mmol/L Normal 98-107 [facility] Comment on above: Performed By: #### L IPA, VIJI, CMP ####[facility] Ywglrqegmg[address] [place], [place] [address]Dr. Tadeo Smyth CO2 [Moles/Vol] 28.0 mmol/L Normal 21.0-32.0 [facility] Comment on above: Performed By: #### L IPA, VIJI, CMP ####[facility] Exclugdjiv[address] [place], [place] [address]Dr. Tadeo Smyth Creatinine [Mass/Vol] 0.96 mg/dL Normal 0.55-1.02 [facility] Comment on above: Performed By: #### L VIJI HALL, CMP ####[facility] Ygkv[address]xtw[address]24[address] [place] [address]Dr. Tadeo Smyth EGFR-AF PRYDEINIG >60 Normal >=60 [facility] Comment on above: Performed By: #### L VIJI HALL, CMP ####[facility] Gmwdlaowbq[address]34 [place] [address]Dr. Tadeo Haja EGFR-NON AF PRYDEINIG >60 Normal >=60 [facility] Comment on above: Performed By: #### L VIJI HALL, CMP ####[facility] Wpvoearwkt5306 [place] [address]Dr. Tadeo Smyth Globulin (S) [Mass/Vol] 3.8 g/dL Normal [facility] Comment on above: Performed By: #### L VIJI HALL, CMP ####[facility] Zlzaspmadl[address] [place], [place] [address]Dr. Tadeo Smyth Glucose [Mass/Vol] 93 mg/dL Normal 74-106 [facility] Comment on above: Performed By: #### L VIJI HALL, CMP ####[facility] Ksjrhykfzl[address] [place], [place] [address]Dr. Tadeo Smyth Potassium [Moles/Vol] 3.6 mmol/L Normal 3.5-5.1 [facility] Comment on above: Performed By: #### L VIJI HALL, CMP ####[facility] Gkehkbxluv[address] [place], [place] [address]Dr. Margotnicole Smyth Protein [Mass/Vol] 7.3 g/dL Normal 6.4-8.2 [facility] Comment on above: Performed By: #### L VIJI HALL, CMP ####[facility] Seojupihze[address] [place], [place] [address]Dr. Tadeo Smyth Sodium [Moles/Vol] 139 mmol/L Normal 136-145 [facility] Comment on above: Performed By: #### L VIJI HALL, CMP ####[facility] Wntnxxczzh27[address] [place], [place] [address]Dr. Tadeo Smyth Urea nitrogen [Mass/Vol] 16.0 mg/dL Normal 7.0-18.0 [facility] Comment on above: Performed By: #### L VIJI HALL, CMP ####[facility] Aklrhrepck[address] [place] [address]Dr. Tadeo Haja Urea nitrogen/Creatinine [Mass ratio] 16.7 mg/mg Normal [facility] Comment on above: Performed By: #### L VIJI HALL CMP ####[facility] Ndxnukzrvp1734 [place] [address]Dr. Tadeo Smyth XR ABD FLAT UP_PA Kasey 07-21 XR ABD FLAT UP_PA CH Normal [facility] CULTURE URINEon 07-10-2022 CULTURE URINE Normal [facility] Comment on above: Performed By: #### U RCX ####[facility] Ptwynbxmqa[address]64[address] [place], [place] [address]Dr. Tadeo Haja INSULINon 07-09-2022 Insulin 15.9 uIU/mL Normal 2.6-24.9 [facility] Comment on above: Performed By: #### I NSULIN ####[facility] Ybxdmxqzfo4[address] [place], [place] [address]Dr. Tadeo Haja CBC AUTO DIFFon 07-08-2022 BASO # 0.0 103/ul Normal 0.0-0.1 [facility] Comment on above: Performed By: #### C BC ####[facility] Wgcercitdw9835[address] [place], [place] [address]Dr. Tadeo Haja Basophils/100 WBC (Bld) 0.6 % Normal 0.2-2.0 [facility] Comment on above: Performed By: #### C BC ####[facility] Znaprhdpbr077[address] [place], [place] [address]Dr. Tadeo Smyth EO # 0.2 103/ul Normal 0.0-0.7 [facility] Comment on above: Performed By: #### C BC ####[facility] Mwaqseywyp808[address] [place], [place] [address]Dr. Tadeo Smyth Eosinophils/100 WBC (Bld) 3.4 % Normal 0.9-7.0 [facility] Comment on above: Performed By: #### C BC ####[facility] Wuijymttxf618[address] [place], [place] [address]Dr. Tadeo Smyth Erythrocyte distribution width (RBC) [Ratio] 13.1 % Normal 11.0-15.0 [facility] Comment on above: Performed By: #### C BC ####[facility] Iqrifphcal1423[address] [place], [place] [address]Dr. Tadeo Smyth Hematocrit (Bld) [Volume fraction] 42.4 % Normal 36.0-48.0 [facility] Comment on above: Performed By: #### C BC ####[facility] Ofczfdrbxg0460[address] [place], [place] [address]Dr. Tadeo Haja Hemoglobin (Bld) [Mass/Vol] 13.7 g/dL Normal 12.0-16.0 [facility] Comment on above: Performed By: #### C BC ####[facility] Dpowsttssh5274[address] [place], [place] [address]Dr. Tadeo Smyth IG # 0.01 10e3/ul Normal 0.00-0.03 [facility] Comment on above: Performed By: #### C BC ####[facility] Ziejoraepq057[address] [place], [place] [address]Dr. Tadeo Smyth IG % 0.2 % Normal 0.0-0.5 [facility] Comment on above: Performed By: #### C BC ####[facility] Ipodflagoc3739[address] [place], [place] [address]Dr. Tadeo Smyth LYMPH # 2.1 103/ul Normal 1.2-3.8 [facility] Comment on above: Performed By: #### C BC ####[facility] Tfcsexhhro1477[address] [place], [place] [address]Dr. Tadeo Smyth Lymphocytes/100 WBC (Bld) 41.2 % Normal 20.5-60.0 [facility] Comment on above: Performed By: #### C BC ####[facility] Ebtyxzwzki9659[address] [place], [place] [address]Dr. Tadeo Smyth MANUAL DIFF REQ NO Normal [facility] Comment on above: Performed By: #### C BC ####[facility] Rzijlrffsu13[address] [place] [address]Dr. Tadeo Smyth MCH (RBC) [Entitic mass] 28.8 pg Normal 26.7-34.0 [facility] Comment on above: Performed By: #### C BC ####[facility] Anqqtjuqqy4996 [place] [address]Dr. Tadeo Smyth MCHC (RBC) [Mass/Vol] 32.3 g/dL Normal 29.9-35.2 [facility] Comment on above: Performed By: #### C BC ####[facility] Zrcnjbtkcy7469[address] [place], [place] [address]DrNeo Smyth MCV (RBC) [Entitic vol] 89.3 fL Normal 81.0-99.0 [facility] Comment on above: Performed By: #### C BC ####[facility] Vyeglerkff[address] [place], [place] [address]DrNeo Smyth MONO # 0.4 103/ul Normal 0.3-0.8 [facility] Comment on above: Performed By: #### C BC ####[facility] Cgehyilrfq4218[address] [place], [place] [address]DrNeo Smyth Monocytes/100 WBC (Bld) 8.1 % Normal 1.7-12.0 [facility] Comment on above: Performed By: #### C BC ####[facility] Zygzcjnput87[address] [place], [place] [address]DrNeo Smyth NEUT # 2.4 103/ul Normal 1.4-6.5 [facility] Comment on above: Performed By: #### C BC ####[facility] Skplambjvc1422[address] [place], [place] [address]DrNeo Smyth Neutrophils/100 WBC (Bld) 46.5 % Normal 43.0-75.0 [facility] Comment on above: Performed By: #### C BC ####[facility] Xtgubujsoz5[address] [place], [place] [address]DrNeo Smyth Platelet mean volume (Bld) [Entitic vol] 9.3 fL Critically low 9.5-13.5 [facility] Comment on above: Performed By: #### C BC ####[facility] Cdxlecrwvk038[address] [place] [phone]. Tadeo Smyth PLT 443 103/ul Normal 150-450 [facility] Comment on above: Performed By: #### C BC ####[facility] Cvbzedbgft4878 [place] [phone]. Tadeo Smyth RBC 4.75 106/ul Normal 4.20-5.40 [facility] Comment on above: Performed By: #### C BC ####[facility] Wqlqgxdvyv6277 [place] [phone]. Tadeo Smyth WBC 5.1 103/ul Normal 4.0-11.0 [facility] Comment on above: Performed By: #### C BC ####[facility] Yzptheebvk7186 [place] [phone]. Tadeo Smyth FREE THYROXINE INDEX T7on FTI 2.91 Normal 1.30-4.50 [facility] Comment on above: Performed By: #### T 7, LIPID, TSH, CMP ####[facility] Cajmvnjcqs0602 [place] [phone]. Tadeo Smyth T3U 31.0 % Normal 30.0-39.0 [facility] Comment on above: Performed By: #### T 7, LIPID, TSH, CMP ####[facility] Mnchqjtnfl7627 [place] [phone]. Tadeo Smyth T4 [Mass/Vol] 9.40 ug/dL Normal 4.80-13.90 [facility] Comment on above: Performed By: #### T 7, LIPID, TSH, CMP ####[facility] Losnoaseqs3381 [place] [phone]. Tadeo Smyth GLYCOHEMOGLOBIN A1Con 2021 ADA RECOMMENDATION SEE BELOW Normal [facility] Comment on above: Result Comment: ADA RECOMMENDED LIMIT 4.0 - 6.0 ADA THERAPEUTIC TARGET < 7.0 ACTION SUGGESTED > 7.0 Performed By: #### A 1C ####[facility] R[address]av[address]lpb80[address] [place], [place] [address]Zz. Tadeo Smyth Glucose [Mass/Vol] 120 mg/dL Normal [facility] Comment on above: Performed By: #### A 1C ####[facility] Loxwqszcya1223 [place], [place] [address]Lh. Tadeo Smyth HbA1c (Bld) [Mass fraction] 5.8 % Normal 4.5-6.2 [facility] Comment on above: Performed By: #### A 1C ####[facility] J[address]xrdhmyj8249 [place], [place] [address]Qs. Tadeo Smyth IRONon 07-08-2022 Iron [Mass/Vol] 59.0 ug/dL Normal 50.0-170.0 [facility] Comment on above: Performed By: #### I KEEGAN ####[facility] Gcswxtjwxb6201 [place] [phone]. Tadeo Smyth LIPID PROFILEon 07-08-2022 CHOL-HDL RATIO NORM SEE BELOW Normal [facility] Comment on above: Result Comment: 3.3 - 4.4 LOW RISK 4.4 - 7.1 AVERAGE RISK 7.1 - 11.0 MODERATE RISK >11.0 HIGH RISK Performed By: #### T 7, LIPID, TSH, CMP ####[facility] Yfytvboteg4798 [place] [phone]. Tadeo Smyth Cholesterol [Mass/Vol] 227 mg/dL Critically high <=200 [facility] Comment on above: Performed By: #### T 7, LIPID, TSH, CMP ####[facility] Kyqzxrknpm10[address] [place], [place] [address]Ym. Tadeo Smyth Cholesterol in HDL [Mass/Vol] 67 mg/dL Critically high 40-60 [facility] Comment on above: Performed By: #### T 7, LIPID, TSH, CMP ####[facility] Jguxvtqxij7264 [place] [phone]. Tadeo Smyth Cholesterol in LDL [Mass/Vol] 139.0 mg/dL Normal [facility] Comment on above: Performed By: #### T 7, LIPID, TSH, CMP ####[facility] Ekdzvyhnih9927 [place] [phone]. Tadeo Smyth Cholesterol.total/Cho lesterol in HDL [Mass ratio] 3.4 {ratio} Normal [facility] Comment on above: Performed By: #### T 7, LIPID, TSH, CMP ####[facility] Kqkjukjzkq8274 [place] [phone]. Tadeo Smyth HDL NORMAL > or = 60 mg/dl - LO W CARDIOVASCULAR RISK <40 mg/dl - HIGH CARDIOVASCULAR RISK Normal [facility] Comment on above: Performed By: #### T 7, LIPID, TSH, CMP ####[facility] Yxssbqyrbk1404 [place] [address]Dr. Tadeo Smyth LDL CALC NORMAL SEE BELOW Normal [facility] Comment on above: Result Comment: <100 mg/dl OPTIMAL 100 - 129 mg/dl NEAR OR ABOVE OPTIMAL 130 - 159 mg/dl BORDERLINE HIGH 160 - 189 mg/dl HIGH >190 mg/dl VERY HIGH Performed By: #### T 7, LIPID, TSH, CMP ####[facility] Nykfqnjzmo8378 [place] [phone]. Tadeo Smyth Triglyceride [Mass/Vol] 105 mg/dL Normal <=150 [facility] Comment on above: Performed By: #### T 7, LIPID, TSH, CMP ####[facility] Nxrqmijmgx6106 [place] [phone]. Tadeo Smyth VLDL CALC 21.0 mg/dL Normal [facility] Comment on above: Performed By: #### T 7, LIPID, TSH, CMP ####[facility] Fpflqlvhug4337 [place] [phone]. Tadeo Smyth OCC BLD IMMUNO SCREENon OCCULT BLOOD Negative Normal NEGATIVE [facility] Comment on above: Performed By: #### O BSCRN ####[facility] Vxkyhhxatj0465 [place] [address]Dr. Tadeo Smyth PROF 14(COMP METB)on 022 Albumin [Mass/Vol] 3.7 g/dL Normal 3.4-5.0 [facility] Comment on above: Performed By: #### T 7, LIPID, TSH, CMP ####[facility] Xateinuznk4795 [place] [address]Dr. Tadeo Haja Albumin/Globulin [Mass ratio] 0.8 {ratio} Normal [facility] Comment on above: Performed By: #### T 7, LIPID, TSH, CMP ####[facility] Obmguccvob34[address] [place] [address]Dr. Tadeo Haja ALP [Catalytic activity/Vol] 141 U/L Critically high 46-116 [facility] Comment on above: Performed By: #### T 7, LIPID, TSH, CMP ####[facility] Hnwzuxfild[address] [place], [place] [address]Dr. Margotnicole Smyth ALT [Catalytic activity/Vol] 23 U/L Normal 14-59 [facility] Comment on above: Performed By: #### T 7, LIPID, TSH, CMP ####[facility] Satjnvfydy[address] [place], [place] [address]Dr. Tadeo Smyth Anion gap [Moles/Vol] 9.8 mmol/L Normal [facility] Comment on above: Performed By: #### T 7, LIPID, TSH, CMP ####[facility] Jfizffcixw[address] [place], [place] [address]Dr. Margotnicole Smyth AST [Catalytic activity/Vol] 13 U/L Critically low 15-37 [facility] Comment on above: Performed By: #### T 7, LIPID, TSH, CMP ####[facility] Umjyzhfjjx9[address] [place], [place] [address]Dr. Tadeo Smyth Bilirubin [Mass/Vol] 0.4 mg/dL Normal 0.2-1.0 [facility] Comment on above: Performed By: #### T 7, LIPID, TSH, CMP ####[facility] Eardvindua[address] [place], [place] [address]Dr. Tadeo Smyth Calcium [Mass/Vol] 10.2 mg/dL Critically high 8.5-10.1 [facility] Comment on above: Performed By: #### T 7, LIPID, TSH, CMP ####[facility] Lloqpfltdg94[address] [place], [place] [address]Dr. Tadeo Smyth Chloride [Moles/Vol] 101 mmol/L Normal 98-107 [facility] Comment on above: Performed By: #### T 7, LIPID, TSH, CMP ####[facility] Mjnpjurekm4247 [place] [address]Dr. Tadeo Smyth CO2 [Moles/Vol] 32.8 mmol/L Critically high 21.0-32.0 [facility] Comment on above: Performed By: #### T 7, LIPID, TSH, CMP ####[facility] Uibgnkivzh8[address] [place] [address]Dr. Tadeo Smyth Creatinine [Mass/Vol] 0.92 mg/dL Normal 0.55-1.02 [facility] Comment on above: Performed By: #### T 7, LIPID, TSH, CMP ####[facility] Btoutnsfjv4[address] [place] [address]Dr. Tadeo Smyth EGFR-AF PRYDEINIG >60 Normal >=60 [facility] Comment on above: Performed By: #### T 7, LIPID, TSH, CMP ####[facility] Gpzkwjgcqn5655 [place] [address]Dr. Tadeo Smyth EGFR-NON AF PRYDEINIG >60 Normal >=60 [facility] Comment on above: Performed By: #### T 7, LIPID, TSH, CMP ####[facility] Wmwmikchki4815 [place] [address]Dr. Tadeo Smyth Globulin (S) [Mass/Vol] 4.8 g/dL Normal [facility] Comment on above: Performed By: #### T 7, LIPID, TSH, CMP ####[facility] Uxchzfxzqa8033 [place] [address]Dr. Tadeo Smyth Glucose [Mass/Vol] 114 mg/dL Critically high 74-106 [facility] Comment on above: Performed By: #### T 7, LIPID, TSH, CMP ####[facility] Zaakbiskgk[address]684 [place] [address]Dr. Tadeo Smyth Potassium [Moles/Vol] 3.6 mmol/L Normal 3.5-5.1 [facility] Comment on above: Performed By: #### T 7, LIPID, TSH, CMP ####[facility] Pqirdarbuc0443 [place] [address]Dr. Tadeo Smyth Protein [Mass/Vol] 8.5 g/dL Critically high 6.4-8.2 [facility] Comment on above: Performed By: #### T 7, LIPID, TSH, CMP ####[facility] Aenlwuujpu[address] [place], [place] [address]Dr. Tadeo Smyth Sodium [Moles/Vol] 140 mmol/L Normal 136-145 [facility] Comment on above: Performed By: #### T 7, LIPID, TSH, CMP ####[facility] Tbrnuyrnpj0250[address] [place], [place] [address]Dr. Tadeo Smyth Urea nitrogen [Mass/Vol] 23.0 mg/dL Critically high 7.0-18.0 [facility] Comment on above: Performed By: #### T 7, LIPID, TSH, CMP ####[facility] Isinhbnawu740[address] [place], [place] [address]Dr. Tadeo Smyth Urea nitrogen/Creatinine [Mass ratio] 25.0 mg/mg Normal [facility] Comment on above: Performed By: #### T 7, LIPID, TSH, CMP ####[facility] Arlqltzssr[address] [place], [place] [address]Dr. Tadeo Smyth TSHon 07-08-2022 TSH 3.748 uIU/mL Critically high 0.358-3.740 [facility] Comment on above: Performed By: #### T 7, LIPID, TSH, CMP ####[facility] Zmnduovqvo0970[address] [place], [place] [address]Dr. Tadeo Smyth UA RANDOM W/MICROSCOPICon BACTERIA TRACE Abnormal NONE SEEN [facility] Comment on above: Performed By: #### U AMIC ####[facility] Jrqraitdiv7106[address] [place], [place] [address]Dr. Tadeo Smyth Bilirubin Ql (U) Negative Normal NEGATIVE [facility] Comment on above: Performed By: #### U AMIC ####[facility] Fdkwtpkonr7184[address] [place], [place] [address]Dr. Tadeo Smyth CAST NONE SEEN Normal NONE SEEN [facility] Comment on above: Performed By: #### U AMIC ####[facility] Spxprgggbh8852 [place] [address]Dr. Tadeo Smyth Clarity (U) CLEAR Normal CLEAR [facility] Comment on above: Performed By: #### U AMIC ####[facility] Hrbylfxpev9019 [place] [address]Dr. Tadeo Smyth Color (U) YELLOW Normal YELLOW [facility] Comment on above: Performed By: #### U AMIC ####[facility] Hjqbinwblk7004 [place] [address]Dr. Tadeo Smyth Crystals LM Nom (Urine sed) NONE SEEN Normal NONE SEEN [facility] Comment on above: Performed By: #### U AMIC ####[facility] Uddudcbvkp4888 [place] [address]Dr. Tadeo Smyth Epithelial cells LM Ql (Urine sed) FEW Abnormal NONE SEEN /RARE [facility] Comment on above: Performed By: #### U AMIC ####[facility] Hqmgmpygbo5[address] [place], [place] [address]Dr. Tadeo Smyth Glucose Ql (U) Negative Normal NEGATIVE [facility] Comment on above: Performed By: #### U AMIC ####[facility] Zpmadercjl64[address] [place], [place] [address]Dr. Tadeo Smyth Hemoglobin Ql (U) SMALL Abnormal NEGATIVE [facility] Comment on above: Performed By: #### U AMIC ####[facility] Bcamjeiyhk1614[address] [place], [place] [address]Dr. Tadeo Smyth Ketones Ql (U) TRACE Abnormal NEGATIVE [facility] Comment on above: Performed By: #### U AMIC ####[facility] Bidgdgfrbu655[address] [place], [place] [address]Dr. Tadeo Smyth LEUKOCYTES TRACE Abnormal NEGATIVE [facility] Comment on above: Performed By: #### U AMIC ####[facility] Zixruedaff6313[address] [place], [place] [address]Dr. Tadeo Smyth MUCOUS NONE SEEN Normal NONE SEEN [facility] Comment on above: Performed By: #### U AMIC ####[facility] Vhowjtzpqw9165 [place] [address]Dr. Tadeo Smyth Nitrite Ql (U) Negative Normal NEGATIVE [facility] Comment on above: Performed By: #### U AMIC ####[facility] Ulanazdeku6587 [place] [phone]. Tadeo Smyth pH (U) 6.5 [pH] Normal 5-9 [facility] Comment on above: Performed By: #### U AMIC ####[facility] Rylernuyok9263 [place] [address]Dr. Tadeo Smyth RBC 5-10 Abnormal 0-2 [facility] Comment on above: Performed By: #### U AMIC ####[facility] Chxvxihllg[address] [place], [place] [address]Dr. Tadeo Smyth SPEC GRAVITY 1.020 Normal 1.005-<=1.0 25 [facility] Comment on above: Performed By: #### U AMIC ####[facility] Qvzwbeocdw6933[address] [place], [place] [address]Dr. Tadeo Smyth UA PROTEIN 30 mg/dl Abnormal NEGATIVE/ TRACE [facility] Comment on above: Performed By: #### U AMIC ####[facility] Sisoiguskd203[address] [place], [place] [address]Dr. Tadeo Smyth Urobilinogen Qn (U) 0.2 {Benito'U}/dL Normal 0.2 - 1. 0 [facility] Comment on above: Performed By: #### U AMIC ####[facility] Ftsgsixnia8304[address] [place], [place] [address]Dr. Tadeo Haja WBC 2-5 Abnormal NONE SEEN [facility] Comment on above: Performed By: #### U AMIC ####[facility] Celtyopavv3660[address] [place], [place] [address]Dr. Tadeo Haja [facility]07 SARS-CoV-2 (COVID-19) RNA CHEN+probe Ql (Unsp spec) Not detected Normal NOT DETECTED [facility] Comment on above: Result Comment: When [...] for this test is supported by the [place] of Health and Human Service's declaration that [...] Performed By: #### C VDTBH ####[facility] Npkhnvxwfr5279[address] [place], [place] [address]Dr. Tadeo Smyth CULTURE URINEon 06-09-2022 CULTURE URINE Normal [facility] Comment on above: Performed By: #### U RCX ####[facility] Vemwgrdctt95[address] [place], [place] [address]Dr. Tadeo Smyth GI PANEL (PCR)on 06-07-2022 Adenovirus F 40/41 Not detected Normal NOT DETECTED [facility] Comment on above: Performed By: #### G IPANEL ####[facility] Hjedtpefrj365[address] [place], [place] [address]Dr. Tadeo Smyth Astrovirus Not detected Normal NOT DETECTED [facility] Comment on above: Performed By: #### G IPANEL ####[facility] Rlcovycldu6[address] [place], [place] [address]Dr. Tadeo Smyth C. Diff toxin A/B Not detected Normal NOT DETECTED [facility] Comment on above: Performed By: #### G IPANEL ####[facility] Kcprpouetw69[address] [place], [place] [address]Dr. Tadeo Smyth Campylobacter Not detected Normal NOT DETECTED [facility] Comment on above: Performed By: #### G IPANEL ####[facility] Ciqrbguioj0423[address] [place], [place] [address]Dr. Tadeo Smyth Cryptosporidium Not detected Normal NOT DETECTED [facility] Comment on above: Performed By: #### G IPANEL ####[facility] Zwwcfntcbm56[address] [place], [place] [address]Dr. Tadeo Smyth Cyclos. Cayetanensis Not detected Normal NOT DETECTED [facility] Comment on above: Performed By: #### G IPANEL ####[facility] Cpzgbcjnfr[address] [place], [place] [address]Dr. Tadeo Smyth E. Coli O157 Not Applicable Normal Not Applicable [facility] Comment on above: Performed By: #### G IPANEL ####[facility] Yuteetthxn[address] [place], [place] [address]Dr. Tadeo Smyth E. histolytica Not detected Normal NOT DETECTED [facility] Comment on above: Performed By: #### G IPANEL ####[facility] Nnsnoekcsp759[address] [place], [place] [address]Dr. Tadeo Smyth EAEC Not detected Normal NOT DETECTED [facility] Comment on above: Performed By: #### G IPANEL ####[facility] [facility] K[address]rafayyxo[address] [place], [place] [address]Dr. Tadeo Smyth EIEC Not detected Normal NOT DETECTED [facility] Comment on above: Performed By: #### G IPANEL ####[facility] Hmwkkgbncw[address] [place], [place] [address]Dr. Tadeo Smyth EPEC Not detected Normal NOT DETECTED [facility] Comment on above: Performed By: #### G IPANEL ####[facility] Pcfzdwqhbv7184[address] [place], [place] [address]Dr. Tadeo Smyth ETEC Not detected Normal NOT DETECTED [facility] Comment on above: Performed By: #### G IPANEL ####[facility] Rcynsmlbjb6528[address] [place], [place] [address]Dr. Tadeo Smyth G. Lamblia Not detected Normal NOT DETECTED [facility] Comment on above: Performed By: #### G IPANEL ####[facility] Qaptxhoony2585[address] [place], [place] [address]Dr. Tadeo Smyth GIPANEL CONTROLS PASSED Normal The [facility] Comment on above: Performed By: #### G IPANEL ####[facility] Aocqdvmhot33[address] [place] [phone]. Tadeo CACERES ARRON HEADER GI PANEL BACTERIA Normal T [facility] Comment on above: Performed By: #### G IPANEL ####[facility] Ljbatusgca2698 [place] [phone]. Tadeo CACERESHD ECOLI GI PANEL DIARRHEAGEN IC E.COLI / SHIGELLA Normal [facility] Comment on above: Performed By: #### G IPANEL ####[facility] Pnqkncmfrw8[address] [place] [address]Dr. Tadeo Smyth GIPNLHD INFO SEE BELOW Normal [facility] Comment on above: Result Comment: EAEC - Enteroaggregative E. Coli EPEC- Enteropathogenic E. Coli ETEC- Enterotoxigenic E. Coli lt/st STEC- Shigella-like toxin-producing E. Coli stx1/stx2 EIEC- Shigella/Enteroinvasive E. Coli Performed By: #### G IPANEL ####[facility] Dzbjgykaqj5669[address] [place], [place] [address]Dr. Tadeo Smyth GIPEMMAHD PARASITES GI PANEL PARASITES Normal [facility] Comment on above: Performed By: #### G IPANEL ####[facility] Uoyhsmjgcl3090 [place] [address]Dr. Tadeo Smyth GIPNLHD VIRUS GI PANEL VIRUSES Normal The [facility] Comment on above: Performed By: #### G IPANEL ####[facility] Nyuuhigeuh6284 [place] [address]Dr. Tadeo Smyth Norovirus GI/GII Not detected Normal NOT DETECTED [facility] Comment on above: Performed By: #### G IPANEL ####[facility] Veonexovxj7384[address] [place], [place] [address]Dr. Tadeo Smyth P. Shigelloides Not detected Normal NOT DETECTED [facility] Comment on above: Performed By: #### G IPANEL ####[facility] Voillyhkfj0114[address] [place], [place] [address]Dr. Tadeo Smyth Rotavirus A Not detected Normal NOT DETECTED [facility] Comment on above: Performed By: #### G IPANEL ####[facility] Ucvsxdipew379[address] [place], [place] [address]Dr. Tadeo Smyth Salmonella Not detected Normal NOT DETECTED [facility] Comment on above: Performed By: #### G IPANEL ####[facility] Unvwcbbebt7509[address] [place], [place] [address]Dr. Tadeo Smyth Sapovirus Not detected Normal NOT DETECTED [facility] Comment on above: Performed By: #### G IPANEL ####[facility] Fnmnfyxurn146588 [address] [place], [place] [address]Dr. Tadeo Smyth STEC Not detected Normal NOT DETECTED [facility] Comment on above: Performed By: #### G IPANEL ####[facility] Tizoussslc4725[address] [place], [place] [address]Dr. Tadeo Smyth Vibrio Not detected Normal NOT DETECTED [facility] Comment on above: Performed By: #### G IPANEL ####[facility] Loqsnpvboh8439[address] [place], [place] [address]Dr. Margotnicole Smyth Vibrio Cholera Not detected Normal NOT DETECTED [facility] Comment on above: Performed By: #### G IPANEL ####[facility] Tlmzooesqu1204[address] [place], [place] [address]Dr. Tadeo Smyth Y. Enterocolitica Not detected Normal NOT DETECTED [facility] Comment on above: Performed By: #### G IPANEL ####[facility] Gwnqevgkmv3618[address] [place], [place] [address]Dr. Tadeo Smyth AMYLASEon 06-06-2022 Amylase [Catalytic activity/Vol] 61 U/L Normal 25-115 [facility] Comment on above: Performed By: #### A MY, LIPA ####[facility] Oqmrrmgxmc2339[address] [place], [place] [address]Dr. Tadeo Smyth CBC AUTO DIFFon 06-06-2022 BASO # 0.0 103/ul Normal 0.0-0.1 [facility] Comment on above: Performed By: #### C BC ####[facility] Vrbwvclzzv747[address] [place], [place] [address]Dr. Tadeo Smyth Basophils/100 WBC (Bld) 0.5 % Normal 0.2-2.0 [facility] Comment on above: Performed By: #### C BC ####[facility] Pgyqgttvst0850[address] [place], [place] [address]Dr. Tadeo Smyth EO # 0.2 103/ul Normal 0.0-0.7 [facility] Comment on above: Performed By: #### C BC ####[facility] Eieukwyxde2800[address] [place], [place] [address]Dr. Tadeo Smyth Eosinophils/100 WBC (Bld) 3.4 % Normal 0.9-7.0 [facility] Comment on above: Performed By: #### C BC ####[facility] Sxqawwhmeg6007[address] [place], [place] [address]Dr. Tadeo Smyth Erythrocyte distribution width (RBC) [Ratio] 13.2 % Normal 11.0-15.0 [facility] Comment on above: Performed By: #### C BC ####[facility] Phgfosmoxt1180[address] [place], [place] [address]Dr. Tadeo Smyth Hematocrit (Bld) [Volume fraction] 38.3 % Normal 36.0-48.0 [facility] Comment on above: Performed By: #### C BC ####[facility] Zarsbtnsfi6735[address] [place], [place] [address]Dr. Tadeo Smyth Hemoglobin (Bld) [Mass/Vol] 12.0 g/dL Normal 12.0-16.0 [facility] Comment on above: Performed By: #### C BC ####[facility] Hyugafwodt079[address] [place], [place] [address]Dr. Tadeo Smyth IG # 0.01 10e3/ul Normal 0.00-0.03 [facility] Comment on above: Performed By: #### C BC ####[facility] Koeztnvzru0636[address] [place], [place] [address]DrNeo Tadeo Smyth IG % 0.2 % Normal 0.0-0.5 [facility] Comment on above: Performed By: #### C BC ####[facility] Oalfcmbexa7424[address] [place], [place] [address]Dr. Tadeo Smyth LYMPH # 1.7 103/ul Normal 1.2-3.8 [facility] Comment on above: Performed By: #### C BC ####[facility] Rhizzsgszf8983 [place] [address]DrNeo Smyth Lymphocytes/100 WBC (Bld) 28.1 % Normal 20.5-60.0 [facility] Comment on above: Performed By: #### C BC ####[facility] Sroagctyqz5564 [place] [address]DrNeo Smyth MANUAL DIFF REQ NO Normal The [facility] Comment on above: Performed By: #### C BC ####[facility] Ymuiygskbm7064 [place] [address]DrNeo Smyth MCH (RBC) [Entitic mass] 28.5 pg Normal 26.7-34.0 [facility] Comment on above: Performed By: #### C BC ####[facility] Ldimirrtck1748 [place] [address]Dr. Tadeo Smyth MCHC (RBC) [Mass/Vol] 31.3 g/dL Normal 29.9-35.2 [facility] Comment on above: Performed By: #### C BC ####[facility] Vfvmjhykxq5937[address] [place], [place] [address]DrNeo Smyth MCV (RBC) [Entitic vol] 91.0 fL Normal 81.0-99.0 [facility] Comment on above: Performed By: #### C BC ####[facility] Vzeeahaixp2497 [place] [address]DrNeo Smyth MONO # 0.4 103/ul Normal 0.3-0.8 [facility] Comment on above: Performed By: #### C BC ####[facility] Uusgqvjizt[address] [place], [place] [address]DrNeo Smyth Monocytes/100 WBC (Bld) 7.1 % Normal 1.7-12.0 [facility] Comment on above: Performed By: #### C BC ####[facility] Rsobhplmtg3028[address] [place], [place] [address]DrNeo Smyth NEUT # 3.6 103/ul Normal 1.4-6.5 [facility] Comment on above: Performed By: #### C BC ####[facility] Trfutbczcp6928 [place] [address]Dr. Tadeo Smyth Neutrophils/100 WBC (Bld) 60.7 % Normal 43.0-75.0 [facility] Comment on above: Performed By: #### C BC ####[facility] Qcbhuczcxd7592 [place] [address]Dr. Tadeo Smyth Platelet mean volume (Bld) [Entitic vol] 8.9 fL Critically low 9.5-13.5 [facility] Comment on above: Performed By: #### C BC ####[facility] Rmlgxqhiem0365 [place] [address]Dr. Tadeo Smyth PLT 374 103/ul Normal 150-450 [facility] Comment on above: Performed By: #### C BC ####[facility] Regjhjlxte232[address] [place], [place] [address]Dr. Tadeo Smyth RBC 4.21 106/ul Normal 4.20-5.40 [facility] Comment on above: Performed By: #### C BC ####[facility] Chpsfeaxop726[address] [place], [place] [address]Dr. Tadeo Smyth WBC 5.9 103/ul Normal 4.0-11.0 [facility] Comment on above: Performed By: #### C BC ####[facility] Zoakacyfzd8197[address] [place], [place] [address]Dr. Tadeo Smyth CT ABD/PELV W CONon 06-06-[address] ABD/PELV W CON Normal [facility] ER URINE PROFILEon 2 Bilirubin Ql (U) Negative Normal NEGATIVE [facility] Comment on above: Performed By: #### KAROL MERCHANT ####[facility] Rgldoanvuw5177 [place] [address]Dr. Margotnicole Smyth Clarity (U) CLOUDY Abnormal CLEAR [facility] Comment on above: Performed By: #### KAROL MERCHANT ####[facility] Ivkdbsixsj9819 [place] [address]Dr. Tadeo Smyth Color (U) LT. YELLOW Normal YELLOW [facility] Comment on above: Performed By: #### KAROL MERCHANT ####[facility] Yfmscospjp4234 [place] [address]Dr. Tadeo Smyth ERUAHD A micrscopic examina tion will be performed if indicated. Normal [facility] Comment on above: Performed By: #### KAROL MERCHANT ####[facility] Lsbunkiils6304[address] [place], [place] [address]Dr. Tadeo Smyth Glucose Ql (U) Negative Normal NEGATIVE The [facility] Comment on above: Performed By: #### KAROL MERCHANT ####[facility] Matfyskhlq779[address] [place], [place] [address]Dr. Tadeo Smyth Hemoglobin Ql (U) TRACE-INTACT Abnormal NEGATIVE [facility] Comment on above: Performed By: #### KAROL MERCHANT ####[facility] Yynitfpltw9936[address] [place], [place] [address]Dr. Tadeo Smyth Ketones Ql (U) Negative Normal NEGATIVE [facility] Comment on above: Performed By: #### KAROL MERCHANT ####[facility] Ehgcxkopfu255[address] [place], [place] [address]Dr. Tadeo Smyth LEUKOCYTES SMALL Abnormal NEGATIVE [facility] Comment on above: Performed By: #### KAROL MERCHANT ####[facility] Jcaoygquxf5385[address] [place], [place] [address]Dr. Tadeo Smyth Nitrite Ql (U) Negative Normal NEGATIVE [facility] Comment on above: Performed By: #### SANDRO MERCHANTRO ####[facility] Jgsybxksbo04[address] [place], [place] [address]Dr. Tadeo Smyth pH (U) 6.0 [pH] Normal 5-9 [facility] Comment on above: Performed By: #### KAROL MERCHANT ####[facility] Hxhqduizhw253[address] [place], [place] [address]Dr. Tadeo Smyth SPEC GRAVITY 1.020 Normal 1.005-<=1.0 25 [facility] Comment on above: Performed By: #### KAROL MERCHANT ####[facility] Zmwymxhwlm7648 [place] [address]Dr. Tadeo Smyth UA PROTEIN Negative Normal NEGATIVE/ TRACE [facility] Comment on above: Performed By: #### SANDRO MERCHANTRO ####[facility] Zbmjlqkvfv9448 [place] [address]Dr. Tadeo Smyth UR MICRO IND INDICATED Normal [facility] Comment on above: Performed By: #### SANDRO MERCHANTRO ####[facility] Btbzdbswdd7883 [place] [address]Dr. Tadeo Smyth Urobilinogen Qn (U) 0.2 {Benito'U}/dL Normal 0.2 - 1. 0 [facility] Comment on above: Performed By: #### KAROL MERCHANT ####[facility] Otkrimytji4014[address] [place], [place] [address]Dr. Tadeo Smyth LIPASEon 06-06-2022 Lipase [Catalytic activity/Vol] 100.0 U/L Normal 73.0-393.0 [facility] Comment on above: Performed By: #### A MY, LIPA ####[facility] Dxdhkbivkg8899 [place] [address]Dr. Taedo Smyth PROF 14(COMP METB)on 022 Albumin [Mass/Vol] 3.3 g/dL Critically low 3.4-5.0 [facility] Comment on above: Performed By: #### C MP ####[facility] Zurlyrbdbi4060 [place] [address]Dr. Tadeo Smyth Albumin/Globulin [Mass ratio] 0.9 {ratio} Normal [facility] Comment on above: Performed By: #### C MP ####[facility] Kkxasbrjfi3681 [place] [address]Dr. Tadeo Smyth ALP [Catalytic activity/Vol] 140 U/L Critically high 46-116 [facility] Comment on above: Performed By: #### C MP ####[facility] Nfydiccayz3611 [place] [phone]. Tadeo Smyth ALT [Catalytic activity/Vol] 23 U/L Normal 14-59 [facility] Comment on above: Performed By: #### C MP ####[facility] Haxcvnlryf7097 [place] [address]Dr. Tadeo Smyth Anion gap [Moles/Vol] 11.6 mmol/L Normal [facility] Comment on above: Performed By: #### C MP ####[facility] Sagmvurfyb2132 [place] [address]Dr. Tadeo Smyth AST [Catalytic activity/Vol] 18 U/L Normal 15-37 [facility] Comment on above: Performed By: #### C MP ####[facility] Dlmwedyrhw8927[address] [place], [place] [address]Dr. Tadeo Smyth Bilirubin [Mass/Vol] 0.2 mg/dL Normal 0.2-1.0 [facility] Comment on above: Performed By: #### C MP ####[facility] Czqtulpiqv9666[address] [place], [place] [address]Dr. Tadeo Smyth Calcium [Mass/Vol] 8.8 mg/dL Normal 8.5-10.1 [facility] Comment on above: Performed By: #### C MP ####[facility] Lssxizbhjl218388 [address] [place], [place] [address]Dr. Tadeo Smyth Chloride [Moles/Vol] 109 mmol/L Critically high 98-107 [facility] Comment on above: Performed By: #### C MP ####[facility] Ngmbykcqhr1716[address] [place], [place] [address]Dr. Tadeo Smyth CO2 [Moles/Vol] 26.3 mmol/L Normal 21.0-32.0 [facility] Comment on above: Performed By: #### C MP ####[facility] Qpmncmtvax2638[address] [place], [place] [address]Dr. Tadeo Smyth Creatinine [Mass/Vol] 0.81 mg/dL Normal 0.55-1.02 [facility] Comment on above: Performed By: #### C MP ####[facility] Srbuagoazr6178 [place] [phone]. Tadeo Smyth EGFR-AF PRYDEINIG >60 Normal >=60 [facility] Comment on above: Performed By: #### C MP ####[facility] Omimpohgnu3205 [place] [phone]. Tadeo Smyth EGFR-NON AF PRYDEINIG >60 Normal >=60 [facility] Comment on above: Performed By: #### C MP ####[facility] Getaclhunx7847 [place] [phone]. Tadeo Haja Globulin (S) [Mass/Vol] 3.7 g/dL Normal [facility] Comment on above: Performed By: #### C MP ####[facility] Ovjekvewvg0420[address] [place], [place] [address]Dr. Tadeo Haja Glucose [Mass/Vol] 90 mg/dL Normal 74-106 [facility] Comment on above: Performed By: #### C MP ####[facility] Agspyhlwci7810[address] [place], [place] [address]Dr. Tadeo Haja Potassium [Moles/Vol] 3.9 mmol/L Normal 3.5-5.1 [facility] Comment on above: Performed By: #### C MP ####[facility] Xoniznpagz0544[address] [place], [place] [address]Dr. Tadeo Haja Protein [Mass/Vol] 7.0 g/dL Normal 6.4-8.2 [facility] Comment on above: Performed By: #### C MP ####[facility] Xitwkbpcnb7069[address] [place], [place] [address]Dr. Tadeo Haja Sodium [Moles/Vol] 143 mmol/L Normal 136-145 [facility] Comment on above: Performed By: #### C MP ####[facility] Mzufgcydvn2484[address] [place], [place] [address]Dr. Margotnicole Haja Urea nitrogen [Mass/Vol] 12.0 mg/dL Normal 7.0-18.0 [facility] Comment on above: Performed By: #### C MP ####[facility] Cxkyqqfauv8056[address] [place], [place] [address]Dr. Tadeo Smyth Urea nitrogen/Creatinine [Mass ratio] 14.8 mg/mg Normal [facility] Comment on above: Performed By: #### C MP ####[facility] Oopdmaylxb7879[address] [place], [place] [address]Dr. Tadeo Smyth URINE MICROSCOPIC ONLYon BACTERIA LARGE Abnormal NONE SEEN [facility] Comment on above: Performed By: #### Matthew FRANCISCO UMICRO ####[facility] Swsqdpaqir224[address] [place], [place] [address]Dr. Tadeo Smyth Bacteria identified Cx Nom (U) INDICATED Normal [facility] Comment on above: Performed By: #### Matthew FRANCISCO UMICRO ####[facility] Vwnxazpady6124[address] [place], [place] [address]Dr. Tadeo Smyth CAST NONE SEEN Normal NONE SEEN [facility] Comment on above: Performed By: #### Matthew FRANCISCO UMICRO ####[facility] Jgzpudnwst2333[address] [place], [place] [address]Dr. Tadeo Smyth Crystals LM Nom (Urine sed) NONE SEEN Normal NONE SEEN [facility] Comment on above: Performed By: #### Matthew FRANCISCO UMICRO ####[facility] Nifytylwrz287[address] [place], [place] [address]Dr. Tadeo Smyth Epithelial cells LM Ql (Urine sed) RARE Normal NONE SEEN /RARE [facility] Comment on above: Performed By: #### Matthew FRANCISCO UMICRO ####[facility] Nzwhtscpen1400[address] [place], [place] [address]Dr. Tadeo Smyth MUCOUS TRACE Abnormal NONE SEEN [facility] Comment on above: Performed By: #### Matthew RUYovanny UMICRO ####[facility] Zpsagafuus334[address] [place], [place] [address]Dr. Tadeo Smyth RBC 0-2 Normal 0-2 [facility] Comment on above: Performed By: #### Matthew RUYovanny UMICRO ####[facility] Xouxnauahe7197[address] [place], [place] [address]Dr. Tadeo Smyth WBC 2-5 Abnormal NONE SEEN [facility] Comment on above: Performed By: #### E RUR, UMICRO ####[facility] Uqoqminkjr3256 [place] [id number]. Tadeo Smyth AMYLASEon 06-04-2022 Amylase [Catalytic activity/Vol] 61 U/L Normal 25-115 [facility] Comment on above: Performed By: #### A MY, CMP, LIPA ####[facility] Qqduvdmwcv8990 [place] [phone]. Tadeo Smyth CBC AUTO DIFFon 06-04-2022 BASO # 0.0 103/ul Normal 0.0-0.1 [facility] Comment on above: Performed By: #### C BC ####[facility] Uckhaqwpfj1283 [place] [address]Dr. Tadeo Haja Basophils/100 WBC (Bld) 0.5 % Normal 0.2-2.0 [facility] Comment on above: Performed By: #### C BC ####[facility] Dsenfbtkbe2139[address] [place], [place] [address]Dr. Tadeo Smyth EO # 0.3 103/ul Normal 0.0-0.7 [facility] Comment on above: Performed By: #### C BC ####[facility] Hsuhdrpgzt1241 [place] [address]Dr. Tadeo Smyth Eosinophils/100 WBC (Bld) 4.7 % Normal 0.9-7.0 [facility] Comment on above: Performed By: #### C BC ####[facility] Iacvdrzfcz3465 [place] [address]Dr. Tadeo Smyth Erythrocyte distribution width (RBC) [Ratio] 13.2 % Normal 11.0-15.0 [facility] Comment on above: Performed By: #### C BC ####[facility] Bguzogiwom3836[address] [place], [place] [address]Dr. Tadeo Smyth Hematocrit (Bld) [Volume fraction] 36.9 % Normal 36.0-48.0 [facility] Comment on above: Performed By: #### C BC ####[facility] Jrikkyyldp0505 [place] [address]Dr. Tadeo Smyth Hemoglobin (Bld) [Mass/Vol] 11.9 g/dL Critically low 12.0-16.0 [facility] Comment on above: Performed By: #### C BC ####[facility] Beuoxsxpkt9806 [place] [address]DrNeo Smyth IG # 0.01 10e3/ul Normal 0.00-0.03 [facility] Comment on above: Performed By: #### C BC ####[facility] Zbsoemifvg4198 [place] [address]DrNeo Smyth IG % 0.2 % Normal 0.0-0.5 [facility] Comment on above: Performed By: #### C BC ####[facility] Uhyjwsyder7532[address] [place], [place] [address]DrNeo Smyth LYMPH # 2.3 103/ul Normal 1.2-3.8 [facility] Comment on above: Performed By: #### C BC ####[facility] Etspzahccs7430[address] [place], [place] [address]DrNeo Smyth Lymphocytes/100 WBC (Bld) 37.3 % Normal 20.5-60.0 [facility] Comment on above: Performed By: #### C BC ####[facility] Zpkkhixmlh2106 [place] [address]DrNeo Smyth MANUAL DIFF REQ NO Normal [facility] Comment on above: Performed By: #### C BC ####[facility] Mkibobgpsk9319 [place] [address]DrNeo Smyth MCH (RBC) [Entitic mass] 29.0 pg Normal 26.7-34.0 [facility] Comment on above: Performed By: #### C BC ####[facility] Turukpnupm6097 [place] [phone] Smyth MCHC (RBC) [Mass/Vol] 32.2 g/dL Normal 29.9-35.2 [facility] Comment on above: Performed By: #### C BC ####[facility] Qohakilljg0502 [place] [phone] Smyth MCV (RBC) [Entitic vol] 90.0 fL Normal 81.0-99.0 [facility] Comment on above: Performed By: #### C BC ####[facility] Cmfeekxvpg5177 [place] [phone]. Tadeo Smyth MONO # 0.4 103/ul Normal 0.3-0.8 [facility] Comment on above: Performed By: #### C BC ####[facility] Fvpbhehebu9782 [place] [phone]. Tadeo Smyth Monocytes/100 WBC (Bld) 6.8 % Normal 1.7-12.0 [facility] Comment on above: Performed By: #### C BC ####[facility] Somdcwbrbo7115 [place] [phone]. Tadeo Smyth NEUT # 3.2 103/ul Normal 1.4-6.5 [facility] Comment on above: Performed By: #### C BC ####[facility] Ssvatodbay2775 [place] [address]Dr. Tadeo Smyth Neutrophils/100 WBC (Bld) 50.5 % Normal 43.0-75.0 [facility] Comment on above: Performed By: #### C BC ####[facility] Rrdwdmmlqt0900 [place] [phone]. Tadeo Smyth Platelet mean volume (Bld) [Entitic vol] 8.9 fL Critically low 9.5-13.5 [facility] Comment on above: Performed By: #### C BC ####[facility] Cjqushuoxp5549 [place] [phone]. Tadeo Smyth PLT 387 103/ul Normal 150-450 [facility] Comment on above: Performed By: #### C BC ####[facility] Zgupkxnakx4[address] [place] [id number]. Tadeo Smyth RBC 4.10 106/ul Critically low 4.20-5.40 The [facility] Comment on above: Performed By: #### C BC ####[facility] Sosiizzftk5864 [place] [phone]. Tadeo Smyth WBC 6.2 103/ul Normal 4.0-11.0 [facility] Comment on above: Performed By: #### C BC ####[facility] Akygrrrizm[address] [place] [phone]. Tadeo Smyth CT ABD/PELV W CONon 06-04-[address] ABD/PELV W CON Normal [facility] ER URINE PROFILEon 2 Bilirubin Ql (U) Negative Normal NEGATIVE The [facility] Comment on above: Performed By: #### SANDRO MERCHANTRO ####[facility] Elkenoyw[address] [place], [place] [address]Dr. Tadeo Smyth Clarity (U) CLEAR Normal CLEAR [facility] Comment on above: Performed By: #### KAROL MERCHANT ####[facility] Otirynkflo7[address] [place], [place] [address]Dr. Tadeo Smyth Color (U) LT. YELLOW Normal YELLOW [facility] Comment on above: Performed By: #### KAROL MERCHANT ####[facility] Mwynlppdmz208[address] [place], [place] [address]Dr. Tadeo Smyth ERUAHD A micrscopic examina tion will be performed if indicated. Normal [facility] Comment on above: Performed By: #### KAROL MERCHANT ####[facility] Lfxslbrarc7[address] [place], [place] [address]Dr. Tadeo Smyth Glucose Ql (U) Negative Normal NEGATIVE The [facility] Comment on above: Performed By: #### KAROL MERCHANT ####[facility] Jydzngmbcc[address] [place], [place] [address]Dr. Tadeo Smyth Hemoglobin Ql (U) TRACE-INTACT Abnormal NEGATIVE [facility] Comment on above: Performed By: #### SANDRO MERCHANTRO ####[facility] Wiiqabxnhm754[address] [place], [place] [address]Dr. Tadeo Smyth Ketones Ql (U) Negative Normal NEGATIVE The [facility] Comment on above: Performed By: #### KAROL MERCHANT ####[facility] Gxrqdefaly84[address] [place], [place] [address]Dr. Tadeo Smyth LEUKOCYTES Negative Normal NEGATIVE [facility] Comment on above: Performed By: #### Matthew FRANCISCO UMICRO ####[facility] Fyoiurusqg10[address] [place] [phone]. Tadeo Smyth Nitrite Ql (U) Negative Normal NEGATIVE [facility] Comment on above: Performed By: #### Matthew FRANCISCO UMICRO ####[facility] Icnrnwxhfn7748 [place] [address]Dr. Tadeo Smyth pH (U) 6.5 [pH] Normal 5-9 [facility] Comment on above: Performed By: #### Matthew FRANCISCO UMICRO ####[facility] Pwrtyvhnnp668[address] [place] [address]Dr. Tadeo Smyth SPEC GRAVITY 1.015 Normal 1.005-<=1.0 25 [facility] Comment on above: Performed By: #### Matthew FRANCISCO UMICRO ####[facility] Srvgtoimkw5818 [place] [phone]. Tadeo Smyth UA PROTEIN Negative Normal NEGATIVE/ TRACE [facility] Comment on above: Performed By: #### Matthew FRANCICSO ICRO ####[facility] Ivsqywqaaj7348 [place] [address]Dr. Tadeo Smyth UR MICRO IND INDICATED Normal [facility] Comment on above: Performed By: #### Matthew FRANCISCO UMICRO ####[facility] Wkfjlqorvj3236 [place] [address]Dr. Tadeo Smyth Urobilinogen Qn (U) 0.2 {Benito'U}/dL Normal 0.2 - 1. 0 [facility] Comment on above: Performed By: #### Matthew FRANCISCO UMICRO ####[facility] Orevramafs7587 [place] [address]Dr. Tadeo Smyth LIPASEon 06-04-2022 Lipase [Catalytic activity/Vol] 81.0 U/L Normal 73.0-393.0 [facility] Comment on above: Performed By: #### A MY, CMP, LIPA ####[facility] Oecbckkpdi2[address] [place] [address]Dr. Tadeo Smyth PROF 14(COMP METB)on 022 Albumin [Mass/Vol] 3.6 g/dL Normal 3.4-5.0 [facility] Comment on above: Performed By: #### A MY, CMP, LIPA ####[facility] Czcrjcrsfu76[address] [place] [address]Dr. Tadeo Smyth Albumin/Globulin [Mass ratio] 1.0 {ratio} Normal [facility] Comment on above: Performed By: #### A MY, CMP, LIPA ####[facility] Vnqlfrfrjm8190 [place] [address]Dr. Tadeo Smyth ALP [Catalytic activity/Vol] 150 U/L Critically high 46-116 [facility] Comment on above: Performed By: #### A MY, CMP, LIPA ####[facility] Reuazwrqkl4605 [place] [address]Dr. Tadeo Smyth ALT [Catalytic activity/Vol] 23 U/L Normal 14-59 [facility] Comment on above: Performed By: #### A MY, CMP, LIPA ####[facility] Iuztpkodnc4127 [place] [address]Dr. Tadeo Smyth Anion gap [Moles/Vol] 13.2 mmol/L Normal [facility] Comment on above: Performed By: #### A MY, CMP, LIPA ####[facility] Yvobycbktk5291 [place] [address]Dr. Tadeo Smyth AST [Catalytic activity/Vol] 12 U/L Critically low 15-37 [facility] Comment on above: Performed By: #### A MY, CMP, LIPA ####[facility] Nszahtltoo3188 [place] [address]Dr. Tadeo Smyth Bilirubin [Mass/Vol] 0.1 mg/dL Critically low 0.2-1.0 [facility] Comment on above: Performed By: #### A MY, CMP, LIPA ####[facility] Hsahtzmnqy[address] [place], [place] [address]Dr. Tadeo Smyth Calcium [Mass/Vol] 9.0 mg/dL Normal 8.5-10.1 [facility] Comment on above: Performed By: #### A MY, CMP, LIPA ####[facility] Rntxxfilod3855 [place] [address]Dr. Tadeo Smyth Chloride [Moles/Vol] 104 mmol/L Normal 98-107 [facility] Comment on above: Performed By: #### A MY, CMP, LIPA ####[facility] Jfctnafebi2047 [place] [address]Dr. Tadeo Smyth CO2 [Moles/Vol] 26.6 mmol/L Normal 21.0-32.0 [facility] Comment on above: Performed By: #### A MY, CMP, LIPA ####[facility] Eqlxgfuprc01[address] [place], [place] [address]Dr. Tadeo Smyth Creatinine [Mass/Vol] 0.97 mg/dL Normal 0.55-1.02 [facility] Comment on above: Performed By: #### A MY, CMP, LIPA ####[facility] Jxboqmjsng[address] [place], [place] [address]Dr. Tadeo Smyth EGFR-AF PRYDEINIG >60 Normal >=60 [facility] Comment on above: Performed By: #### A MY, CMP, LIPA ####[facility] Ueeyhjtuos64[address] [place], [place] [address]Dr. Tadeo Smyth EGFR-NON AF PRYDEINIG 60 mL/min/1.73m2 Normal >=60 [facility] Comment on above: Performed By: #### A MY, CMP, LIPA ####[facility] Rqolsfyjtp932[address] [place], [place] [address]Dr. Tadeo Smyth Globulin (S) [Mass/Vol] 3.7 g/dL Normal [facility] Comment on above: Performed By: #### A MY, CMP, LIPA ####[facility] Hnlzjegpcu6[address] [place], [place] [address]Dr. Tadeo Smyth Glucose [Mass/Vol] 109 mg/dL Critically high 74-106 [facility] Comment on above: Performed By: #### A MY, CMP, LIPA ####[facility] Bhebhumpkx2916[address] [place], [place] [address]Dr. Tadeo Smyth Potassium [Moles/Vol] 3.8 mmol/L Normal 3.5-5.1 [facility] Comment on above: Performed By: #### A MY, CMP, LIPA ####[facility] Mtuvyttont[address]01 [place] [address]Dr. Tadeo Smyth Protein [Mass/Vol] 7.3 g/dL Normal 6.4-8.2 [facility] Comment on above: Performed By: #### A MY, CMP, LIPA ####[facility] Dkrvkktado2907 [place] [address]Dr. Tadeo Smyth Sodium [Moles/Vol] 140 mmol/L Normal 136-145 [facility] Comment on above: Performed By: #### A MY, CMP, LIPA ####[facility] Wgjybbailv6[address] [place], [place] [address]Dr. Tadeo Smyth Urea nitrogen [Mass/Vol] 21.0 mg/dL Critically high 7.0-18.0 [facility] Comment on above: Performed By: #### A TANYA, CMP, LIPA ####[facility] Xvjmlufevj6[address] [place], [place] [address]Dr. Tadeo Smyth Urea nitrogen/Creatinine [Mass ratio] 21.6 mg/mg Normal [facility] Comment on above: Performed By: #### A TANYA, CMP, LIPA ####[facility] Rekhljntde[address] [place] [address]Dr. aTdeo Smyth URINE MICROSCOPIC ONLYon BACTERIA NONE SEEN Normal NONE SEEN [facility] Comment on above: Performed By: #### SANDRO MERCHANTRO ####[facility] Wammkurfab5[address] [place] [address]Dr. Tadeo Smyth Bacteria identified Cx Nom (U) NOT INDICATED Normal [facility] Comment on above: Performed By: #### SANDRO MERCHANTRO ####[facility] Zcchigwyxg3522 [place] [address]Dr. Tadeo Smyth CAST NONE SEEN Normal NONE SEEN [facility] Comment on above: Performed By: #### SANDRO MERCHANTRO ####[facility] Mjvyldmdac5867 [place] [phone]. Tadeo Smyth Crystals LM Nom (Urine sed) NONE SEEN Normal NONE SEEN [facility] Comment on above: Performed By: #### KAROL MERCHANT ####[facility] Uptwkrmscj5169 [place] [phone]. Tadeo Smyth Epithelial cells LM Ql (Urine sed) FEW Abnormal NONE SEEN /RARE [facility] Comment on above: Performed By: #### KAROL MERCHANT ####[facility] Jreoqtduyx4671 [place] [phone]. Tadeo Smyth MUCOUS NONE SEEN Normal NONE SEEN [facility] Comment on above: Performed By: #### KAROL MERCHANT ####[facility] Qttuhsncdf0675 [place] [address]Dr. Tadeo Smyth RBC 0-2 Normal 0-2 [facility] Comment on above: Performed By: #### KAROL MERCHANT ####[facility] Fnudfslfxi6119 [place] [address]Dr. Tadeo Smyth WBC NONE SEEN Normal NONE SEEN [facility] Comment on above: Performed By: #### KAROL MERCHANT ####[facility] Fmurtuzars82[address] [place], [place] [address]Dr. Tadeo Smyth MICRO OTHER TESTSOrdered By: Guillermo Rocha on 04-29-2022 Fecal WBC Lactoferrin Negative (04/29/22 8:00 AM) Normal Negative [facility] Man Sero CULTURE URINEon 03-31-2022 CULTURE URINE Normal [facility] Comment on above: Performed By: #### U RCX ####[facility] Pqlrvzpnfy9031 [place] [address]Dr. Tadeo Smyth CBC AUTO DIFFon 03-30-2022 BASO # 0.0 103/ul Normal 0.0-0.1 [facility] Comment on above: Performed By: #### C BC ####[facility] Ypxlesnvmp7362 [place] [address]Dr. Tadeo Smyth Basophils/100 WBC (Bld) 0.4 % Normal 0.2-2.0 [facility] Comment on above: Performed By: #### C BC ####[facility] Bawolxtzix7016 [place] [address]Dr. Tadeo Smyth EO # 0.3 103/ul Normal 0.0-0.7 [facility] Comment on above: Performed By: #### C BC ####[facility] Hjaefqronm[address] [place], [place] [address]Dr. Margotnicole Smyth Eosinophils/100 WBC (Bld) 5.1 % Normal 0.9-7.0 [facility] Comment on above: Performed By: #### C BC ####[facility] Lcdcxkpmue04[address] [place], [place] [address]Dr. Margotnicole Smyth Erythrocyte distribution width (RBC) [Ratio] 12.8 % Normal 11.0-15.0 [facility] Comment on above: Performed By: #### C BC ####[facility] Balwtzjjcv357[address] [place], [place] [address]Dr. Margotnicole Smyth Hematocrit (Bld) [Volume fraction] 36.4 % Normal 36.0-48.0 [facility] Comment on above: Performed By: #### C BC ####[facility] Vfwybdchap14[address] [place], [place] [address]Dr. Tadeo Smyth Hemoglobin (Bld) [Mass/Vol] 12.0 g/dL Normal 12.0-16.0 [facility] Comment on above: Performed By: #### C BC ####[facility] Eldxbcmsdr26[address] [place], [place] [address]Dr. Tadeo Smyth IG # 0.02 10e3/ul Normal 0.00-0.03 [facility] Comment on above: Performed By: #### C BC ####[facility] Ygkqseeskm9[address] [place], [place] [address]Dr. Margotnicole Smyth IG % 0.4 % Normal 0.0-0.5 [facility] Comment on above: Performed By: #### C BC ####[facility] Mbnlcrkcsp27[address] [place], [place] [address]DrNeo Smyth LYMPH # 1.4 103/ul Normal 1.2-3.8 [facility] Comment on above: Performed By: #### C BC ####[facility] Adcqrgbfac6604 [place] [phone]. Margotnicole Smyth Lymphocytes/100 WBC (Bld) 25.5 % Normal 20.5-60.0 [facility] Comment on above: Performed By: #### C BC ####[facility] Iueqdxcoym4031 [place] [phone] Smyth MANUAL DIFF REQ NO Normal [facility] Comment on above: Performed By: #### C BC ####[facility] Zigtclnmxo7091 [place] [phone]. Tadeo Smyth MCH (RBC) [Entitic mass] 29.1 pg Normal 26.7-34.0 [facility] Comment on above: Performed By: #### C BC ####[facility] Lufctsncxb9438 [place] [address]Dr. Tadeo Smyth MCHC (RBC) [Mass/Vol] 33.0 g/dL Normal 29.9-35.2 [facility] Comment on above: Performed By: #### C BC ####[facility] Xdfyblpzuo6297 [place] [phone]. Tadeo Smyth MCV (RBC) [Entitic vol] 88.3 fL Normal 81.0-99.0 [facility] Comment on above: Performed By: #### C BC ####[facility] Urcxjpvouo1061 [place] [address]Dr. Tadeo Smyth MONO # 0.4 103/ul Normal 0.3-0.8 [facility] Comment on above: Performed By: #### C BC ####[facility] Fketxuxceo0560 [place] [phone] Smyth Monocytes/100 WBC (Bld) 7.1 % Normal 1.7-12.0 [facility] Comment on above: Performed By: #### C BC ####[facility] Oqmeztyfnn5100 [place] [phone] Smyth NEUT # 3.4 103/ul Normal 1.4-6.5 [facility] Comment on above: Performed By: #### C BC ####[facility] Jjkkqirzup3249 [place] [phone]. Margotnicole Haja Neutrophils/100 WBC (Bld) 61.5 % Normal 43.0-75.0 [facility] Comment on above: Performed By: #### C BC ####[facility] Wjjxunbiyk9669 [place] [phone]. Margotnicole Haja Platelet mean volume (Bld) [Entitic vol] 8.8 fL Critically low 9.5-13.5 [facility] Comment on above: Performed By: #### C BC ####[facility] Smrcjmjigc2142 [place] [phone]. Tadeo Smyth PLT 324 103/ul Normal 150-450 [facility] Comment on above: Performed By: #### C BC ####[facility] Azqvlyaonp7629 [place] [phone]. Tadeo Smyth RBC 4.12 106/ul Critically low 4.20-5.40 [facility] Comment on above: Performed By: #### C BC ####[facility] Gehyfjmmow5927 [place] [phone]. Tadeo Smyth WBC 5.5 103/ul Normal 4.0-11.0 [facility] Comment on above: Performed By: #### C BC ####[facility] Cvdxdmpuix9383 [place] [phone] Smyth PROF 14(COMP METB)on 022 Albumin [Mass/Vol] 3.1 g/dL Critically low 3.4-5.0 [facility] Comment on above: Performed By: #### C MP ####[facility] Egcgujbuom6118 [place] [address]DrNeo Smyth Albumin/Globulin [Mass ratio] 0.9 {ratio} Normal [facility] Comment on above: Performed By: #### C MP ####[facility] Jkizyhubbl1944 [place] [phone] Smyth ALP [Catalytic activity/Vol] 119 U/L Critically high 46-116 [facility] Comment on above: Performed By: #### C MP ####[facility] Wseibdzjos1727 [place] [phone]. Tadeo Smyth ALT [Catalytic activity/Vol] 17 U/L Normal 14-59 [facility] Comment on above: Performed By: #### C MP ####[facility] Jbqbwgjqtq5481 [place] [phone]. Tadeo Smyth Anion gap [Moles/Vol] 12.0 mmol/L Normal Th e [facility] Comment on above: Performed By: #### C MP ####[facility] Nbpebzqcsj9084 [place] [phone]. Tadeo Haja AST [Catalytic activity/Vol] 16 U/L Normal 15-37 [facility] Comment on above: Performed By: #### C MP ####[facility] Lqgmftwriy7242 [place] [address]Dr. Tadeo Haja Bilirubin [Mass/Vol] 0.4 mg/dL Normal 0.2-1.0 [facility] Comment on above: Performed By: #### C MP ####[facility] Dxvpbdbadf2805 [place] [phone]. Tadeo Haja Calcium [Mass/Vol] 8.9 mg/dL Normal 8.5-10.1 [facility] Comment on above: Performed By: #### C MP ####[facility] Cnydbfskvr1510 [place] [address]Dr. Tadeo Haja Chloride [Moles/Vol] 107 mmol/L Normal 98-107 [facility] Comment on above: Performed By: #### C MP ####[facility] Zanswflcxf0081 [place] [phone]. Tadeo Haja CO2 [Moles/Vol] 26.9 mmol/L Normal 21.0-32.0 [facility] Comment on above: Performed By: #### C MP ####[facility] Iypcpdgcav7743 [place] [phone]. Margotnicole Smyth Creatinine [Mass/Vol] 0.82 mg/dL Normal 0.55-1.02 [facility] Comment on above: Performed By: #### C MP ####[facility] Bdhwxhfgry7627 [place] [phone]. Tadeo Smyth EGFR-AF PRYDEINIG >60 Normal >=60 [facility] Comment on above: Performed By: #### C MP ####[facility] Qnipfkbavw3918 [place] [phone]. Tadeo Smyth EGFR-NON AF PRYDEINIG >60 Normal >=60 [facility] Comment on above: Performed By: #### C MP ####[facility] Qqbsiuqgvg4490 [place] [phone]. Tadeo Smyth Globulin (S) [Mass/Vol] 3.5 g/dL Normal [facility] Comment on above: Performed By: #### C MP ####[facility] Udharxpzvf9242 [place] [address]Dr. Tadeo Smyth Glucose [Mass/Vol] 104 mg/dL Normal 74-106 [facility] Comment on above: Performed By: #### C MP ####[facility] Snuqvlmomr1013 [place] [address]Dr. Tadeo Smyth Potassium [Moles/Vol] 3.9 mmol/L Normal 3.5-5.1 [facility] Comment on above: Performed By: #### C MP ####[facility] Xgtlpijanl3681 [place] [address]Dr. Tadeo Smyth Protein [Mass/Vol] 6.6 g/dL Normal 6.4-8.2 [facility] Comment on above: Performed By: #### C MP ####[facility] Bhixvojyvl4801 [place] [address]Dr. Tadeo Smyth Sodium [Moles/Vol] 142 mmol/L Normal 136-145 [facility] Comment on above: Performed By: #### C MP ####[facility] Uzsdmvdjru2309 [place] [address]Dr. Tadeo Smyth Urea nitrogen [Mass/Vol] 5.0 mg/dL Critically low 7.0-18.0 [facility] Comment on above: Performed By: #### C MP ####[facility] Aqpjrcuhnv9627 [place] [phone]. Tadeo Smyth Urea nitrogen/Creatinine [Mass ratio] 6.1 mg/mg Normal [facility] Comment on above: Performed By: #### C MP ####[facility] Nqacnzsujh2664 [place] [phone]. Tadeo Smyth CBC AUTO DIFFon 03-29-2022 BASO # 0.0 103/ul Normal 0.0-0.1 [facility] Comment on above: Performed By: #### C BC ####[facility] Xjbthedsjv6[address] [place], [place] [address]Dr. Margotnicole Smyth Basophils/100 WBC (Bld) 0.4 % Normal 0.2-2.0 [facility] Comment on above: Performed By: #### C BC ####[facility] Udyftjqwzv[address] [place], [place] [address]Dr. Tadeo Smyth EO # 0.2 103/ul Normal 0.0-0.7 [facility] Comment on above: Performed By: #### C BC ####[facility] Fsielhygpx[address] [place], [place] [address]Dr. Margotnicole Smyth Eosinophils/100 WBC (Bld) 4.3 % Normal 0.9-7.0 [facility] Comment on above: Performed By: #### C BC ####[facility] Tcbmnlonlu13[address] [place], [place] [address]Dr. Margotnicole Smyth Erythrocyte distribution width (RBC) [Ratio] 12.9 % Normal 11.0-15.0 [facility] Comment on above: Performed By: #### C BC ####[facility] Yxggclgeni18[address] [place], [place] [address]Dr. Tadeo Smyth Hematocrit (Bld) [Volume fraction] 33.8 % Critically low 36.0-48.0 [facility] Comment on above: Performed By: #### C BC ####[facility] Glxckkaytb24[address] [place], [place] [address]Dr. Tadeo Smyth Hemoglobin (Bld) [Mass/Vol] 11.1 g/dL Critically low 12.0-16.0 [facility] Comment on above: Performed By: #### C BC ####[facility] Cndchifrzf8909 [place] [phone]. Margotnicole Haja IG # 0.01 10e3/ul Normal 0.00-0.03 [facility] Comment on above: Performed By: #### C BC ####[facility] Pwudifnftc4119 [place] [phone]. Tadeo Smyth IG % 0.2 % Normal 0.0-0.5 [facility] Comment on above: Performed By: #### C BC ####[facility] Grgyqdqnqf4648 [place] [address]Dr. Tadeo Smyth LYMPH # 1.5 103/ul Normal 1.2-3.8 [facility] Comment on above: Performed By: #### C BC ####[facility] Epfsbgtnxz8702 [place] [address]Dr. Tadeo Smyth Lymphocytes/100 WBC (Bld) 29.9 % Normal 20.5-60.0 [facility] Comment on above: Performed By: #### C BC ####[facility] Gdikvcerru9021 [place] [phone]. Tadeo Smyth MANUAL DIFF REQ NO Normal [facility] Comment on above: Performed By: #### C BC ####[facility] Dconmlqwhd3682 [place] [phone]. Tadeo Smyth MCH (RBC) [Entitic mass] 29.3 pg Normal 26.7-34.0 [facility] Comment on above: Performed By: #### C BC ####[facility] Mdlctunrjm6792 [place] [phone]. Tadeo Haja MCHC (RBC) [Mass/Vol] 32.8 g/dL Normal 29.9-35.2 [facility] Comment on above: Performed By: #### C BC ####[facility] Pceezyqygw9049 [place] [phone]. Tadeo Smyth MCV (RBC) [Entitic vol] 89.2 fL Normal 81.0-99.0 [facility] Comment on above: Performed By: #### C BC ####[facility] Kunuvgvdlv6465 [place] [phone]. Tadeo Smyth MONO # 0.4 103/ul Normal 0.3-0.8 [facility] Comment on above: Performed By: #### C BC ####[facility] Ipgtmwjaeb8198 [place] [phone]. Tadeo Smyth Monocytes/100 WBC (Bld) 7.8 % Normal 1.7-12.0 [facility] Comment on above: Performed By: #### C BC ####[facility] Uopaxgescm1407 [place] [phone]. Tadeo Smyth NEUT # 2.8 103/ul Normal 1.4-6.5 [facility] Comment on above: Performed By: #### C BC ####[facility] Srjgtmzhqg3303 [place] [address]Dr. Tadeo Smyth Neutrophils/100 WBC (Bld) 57.4 % Normal 43.0-75.0 [facility] Comment on above: Performed By: #### C BC ####[facility] Koiluyhupo3121 [place] [phone]. Tadeo Smyth Platelet mean volume (Bld) [Entitic vol] 8.9 fL Critically low 9.5-13.5 [facility] Comment on above: Performed By: #### C BC ####[facility] [facility] Fwifuqymlh94[address] [place] [id number]. Tadeo Smyth PLT 314 103/ul Normal 150-450 [facility] Comment on above: Performed By: #### C BC ####[facility] Hqczmqhilx4796 [place] [phone]. Tadeo Smyth RBC 3.79 106/ul Critically low 4.20-5.40 The [facility] Comment on above: Performed By: #### C BC ####[facility] Xchpkdftwk3875 [place] [phone]. Tadeo Smyth WBC 4.9 103/ul Normal 4.0-11.0 [facility] Comment on above: Performed By: #### C BC ####[facility] Hwnqvixkbx0408 [place] [address]Dr. Tadeo Smyth PROF 14(COMP METB)on 022 Albumin [Mass/Vol] 2.8 g/dL Critically low 3.4-5.0 Th [facility] Comment on above: Performed By: #### C MP ####[facility] Eevaarrylj7950 [place] [address]Dr. Tadeo Smyth Albumin/Globulin [Mass ratio] 0.8 {ratio} Normal [facility] Comment on above: Performed By: #### C MP ####[facility] Bgwvicyrri7764 [place] [address]Dr. Tadeo Smyth ALP [Catalytic activity/Vol] 117 U/L Critically high 46-116 [facility] Comment on above: Performed By: #### C MP ####[facility] Zcudssxlqz47[address] [place], [place] [address]Dr. Tadeo Smyth ALT [Catalytic activity/Vol] 13 U/L Critically low 14-59 [facility] Comment on above: Performed By: #### C MP ####[facility] Efzslnhaiy245[address] [place], [place] [address]Dr. Tadeo Smyth Anion gap [Moles/Vol] 8.7 mmol/L Normal [facility] Comment on above: Performed By: #### C MP ####[facility] Pdrsjekryq9574[address] [place], [place] [address]Dr. Tadeo Smyth AST [Catalytic activity/Vol] 12 U/L Critically low 15-37 [facility] Comment on above: Performed By: #### C MP ####[facility] Pdqohgdmst515[address] [place], [place] [address]Dr. Tadeo Smyth Bilirubin [Mass/Vol] 0.4 mg/dL Normal 0.2-1.0 [facility] Comment on above: Performed By: #### C MP ####[facility] Dxotmosaee3286[address] [place], [place] [address]Dr. Tadeo Smyth Calcium [Mass/Vol] 8.5 mg/dL Normal 8.5-10.1 [facility] Comment on above: Performed By: #### C MP ####[facility] Mqejozcgew1716 [place] [address]Dr. Tadeo Smyth Chloride [Moles/Vol] 108 mmol/L Critically high 98-107 [facility] Comment on above: Performed By: #### C MP ####[facility] Wssjsnmona5490 [place] [address]Dr. Tadeo Smyth CO2 [Moles/Vol] 28.0 mmol/L Normal 21.0-32.0 [facility] Comment on above: Performed By: #### C MP ####[facility] Cpvejnmxgm7577 [place] [address]Dr. Tadeo Smyth Creatinine [Mass/Vol] 0.74 mg/dL Normal 0.55-1.02 [facility] Comment on above: Performed By: #### C MP ####[facility] Vwilbkeklf049[address] [place], [place] [address]Dr. Tadeo Smyth EGFR-AF PRYDEINIG >60 Normal >=60 [facility] Comment on above: Performed By: #### C MP ####[facility] Edqmhzwejg568[address] [place], [place] [address]Dr. Tadeo Smyth EGFR-NON AF PRYDEINIG >60 Normal >=60 [facility] Comment on above: Performed By: #### C MP ####[facility] Fqsaqldhum4365[address] [place], [place] [address]Dr. Tadeo Smyth Globulin (S) [Mass/Vol] 3.4 g/dL Normal [facility] Comment on above: Performed By: #### C MP ####[facility] Dpwnijopyk2704[address] [place], [place] [address]Dr. Tadeo Smyth Glucose [Mass/Vol] 107 mg/dL Critically high 74-106 [facility] Comment on above: Performed By: #### C MP ####[facility] Vidqjlxphh8105[address] [place], [place] [address]Dr. Tadeo Smyth Potassium [Moles/Vol] 3.7 mmol/L Normal 3.5-5.1 [facility] Comment on above: Performed By: #### C MP ####[facility] Qvhqyqaixc8273 [place] [address]Dr. Tadeo Smyth Protein [Mass/Vol] 6.2 g/dL Critically low 6.4-8.2 Th [facility] Comment on above: Performed By: #### C MP ####[facility] Fuuhkukvhu9167 [place] [address]Dr. Tadeo Smyth Sodium [Moles/Vol] 141 mmol/L Normal 136-145 [facility] Comment on above: Performed By: #### C MP ####[facility] Gdzjnijixn7362 [place] [address]Dr. Tadeo Smyth Urea nitrogen [Mass/Vol] 7.0 mg/dL Normal 7.0-18.0 [facility] Comment on above: Performed By: #### C MP ####[facility] Qgfwszcxga6799[address] [place], [place] [address]Dr. Tadeo Smyth Urea nitrogen/Creatinine [Mass ratio] 9.5 mg/mg Normal [facility] Comment on above: Performed By: #### C MP ####[facility] Nedphonono6717[address] [place], [place] [address]Dr. Tadeo Smyth XR KUB 1 VIEWon 03-29-2022 XR KUB 1 VIEW Normal [facility] CBC AUTO DIFFon 03-28-2022 BASO # 0.0 103/ul Normal 0.0-0.1 [facility] Comment on above: Performed By: #### C BC ####[facility] Sqbnfxwtku5967[address] [place], [place] [address]Dr. Tadeo Haja Basophils/100 WBC (Bld) 0.7 % Normal 0.2-2.0 [facility] Comment on above: Performed By: #### C BC ####[facility] Kljzskqvxg075[address] [place], [place] [address]Dr. Tadeo Haja EO # 0.2 103/ul Normal 0.0-0.7 [facility] Comment on above: Performed By: #### C BC ####[facility] Sbwrwmdllv67[address] [place], [place] [address]Dr. Tadeo Haja Eosinophils/100 WBC (Bld) 3.3 % Normal 0.9-7.0 [facility] Comment on above: Performed By: #### C BC ####[facility] Uogcvjpsaz3584 [place] [address]Dr. Tadeo Smyth Erythrocyte distribution width (RBC) [Ratio] 13.2 % Normal 11.0-15.0 [facility] Comment on above: Performed By: #### C BC ####[facility] Mgeydmhzng6267 [place] [address]Dr. Tadeo Smyth Hematocrit (Bld) [Volume fraction] 34.2 % Critically low 36.0-48.0 [facility] Comment on above: Performed By: #### C BC ####[facility] Tmhmjyfmyx603[address] [place], [place] [address]Dr. Tadeo Smyth Hemoglobin (Bld) [Mass/Vol] 10.8 g/dL Critically low 12.0-16.0 [facility] Comment on above: Performed By: #### C BC ####[facility] Iwvhyadriw6511[address] [place], [place] [address]Dr. Tadeo Smyth IG # 0.01 10e3/ul Normal 0.00-0.03 [facility] Comment on above: Performed By: #### C BC ####[facility] Rzzbcywhdb7566[address] [place], [place] [address]Dr. Tadeo Smyth IG % 0.2 % Normal 0.0-0.5 [facility] Comment on above: Performed By: #### C BC ####[facility] Vewtzewodj8986[address] [place], [place] [address]Dr. Tadeo Smyth LYMPH # 1.3 103/ul Normal 1.2-3.8 [facility] Comment on above: Performed By: #### C BC ####[facility] Loeqjndlwk7665[address] [place], [place] [address]Dr. Tadeo Smyth Lymphocytes/100 WBC (Bld) 28.4 % Normal 20.5-60.0 [facility] Comment on above: Performed By: #### C BC ####[facility] Fbwinrdfsl9909[address] [place], [place] [address]Dr. Tadeo Haja MANUAL DIFF REQ NO Normal [facility] Comment on above: Performed By: #### C BC ####[facility] Gbuvfuxcbr3733 [place] [phone]. Tadeo Haja MCH (RBC) [Entitic mass] 28.3 pg Normal 26.7-34.0 [facility] Comment on above: Performed By: #### C BC ####[facility] Kyxetrazig3306 [place] [address]Dr. Tadeo Smyth MCHC (RBC) [Mass/Vol] 31.6 g/dL Normal 29.9-35.2 [facility] Comment on above: Performed By: #### C BC ####[facility] Cbdtsmlpve7373 [place] [address]Dr. Tadeo Smyth MCV (RBC) [Entitic vol] 89.5 fL Normal 81.0-99.0 [facility] Comment on above: Performed By: #### C BC ####[facility] Itfckjnlyk9487[address] [place], [place] [address]Dr. Tadeo Smyth MONO # 0.3 103/ul Normal 0.3-0.8 [facility] Comment on above: Performed By: #### C BC ####[facility] Gpbjsxpids8932[address] [place], [place] [address]Dr. Tadeo Smyth Monocytes/100 WBC (Bld) 5.5 % Normal 1.7-12.0 [facility] Comment on above: Performed By: #### C BC ####[facility] Liiaabcydo0495[address] [place], [place] [address]DrNeo Smyth NEUT # 2.8 103/ul Normal 1.4-6.5 [facility] Comment on above: Performed By: #### C BC ####[facility] Upqbkpjbee3557[address] [place], [place] [address]DrNeo Smyth Neutrophils/100 WBC (Bld) 61.9 % Normal 43.0-75.0 [facility] Comment on above: Performed By: #### C BC ####[facility] Dxejukvudo4074[address] [place], [place] [address]DrNeo Smyth Platelet mean volume (Bld) [Entitic vol] 9.1 fL Critically low 9.5-13.5 [facility] Comment on above: Performed By: #### C BC ####[facility] Rrmpphniwu9841 [place] [address]Dr. Tadeo Smyth PLT 327 103/ul Normal 150-450 [facility] Comment on above: Performed By: #### C BC ####[facility] Ifvzahcnqk5277 [place] [phone]. Tadeo Smyth RBC 3.82 106/ul Critically low 4.20-5.40 [facility] Comment on above: Performed By: #### C BC ####[facility] Kshuvcfxot3931 [place] [address]Dr. Tadeo Smyth WBC 4.5 103/ul Normal 4.0-11.0 [facility] Comment on above: Performed By: #### C BC ####[facility] Zncuwegxdi6806 [place] [address]DrNeo Smyth POINT OF CARE GLUCOSEon 03-06 Glucose [Mass/Vol] 84 mg/dL Normal 74-106 [facility] Comment on above: Performed By: #### P OCGLUC ####[facility] Pwcshgtdcp[address] [place], [place] [address]DrNeo Smyth PROF 14(COMP METB)on 022 Albumin [Mass/Vol] 2.9 g/dL Critically low 3.4-5.0 [facility] Comment on above: Performed By: #### C MP ####[facility] Wjxlqqptbe8431 [place] [phone] Smyth Albumin/Globulin [Mass ratio] 0.9 {ratio} Normal [facility] Comment on above: Performed By: #### C MP ####[facility] Fgxfvbhcyr7091 [place] [address]DrNeo Smyth ALP [Catalytic activity/Vol] 119 U/L Critically high 46-116 [facility] Comment on above: Performed By: #### C MP ####[facility] Drqtelvalp2670 [place] [address]DrNeo Smyth ALT [Catalytic activity/Vol] 15 U/L Normal 14-59 [facility] Comment on above: Performed By: #### C MP ####[facility] Kmoiebmzzf8430 [place] [address]Dr. Margotnicole Haja Anion gap [Moles/Vol] 7.9 mmol/L Normal [facility] Comment on above: Performed By: #### C MP ####[facility] Tfvfdvlthr1550 [place] [address]Dr. Tadeo Smyth AST [Catalytic activity/Vol] 11 U/L Critically low 15-37 [facility] Comment on above: Performed By: #### C MP ####[facility] Ccqoknnotk956[address] [place], [place] [address]Dr. Tadeo Smyth Bilirubin [Mass/Vol] 0.4 mg/dL Normal 0.2-1.0 [facility] Comment on above: Performed By: #### C MP ####[facility] Efhekivoju1485[address] [place], [place] [address]Dr. Tadeo Smyth Calcium [Mass/Vol] 8.7 mg/dL Normal 8.5-10.1 [facility] Comment on above: Performed By: #### C MP ####[facility] Bfvfykxigy927[address] [place], [place] [address]Dr. Tadeo Smyth Chloride [Moles/Vol] 109 mmol/L Critically high 98-107 [facility] Comment on above: Performed By: #### C MP ####[facility] Tbsfzhsfos8435[address] [place], [place] [address]Dr. Tadeo Smyth CO2 [Moles/Vol] 27.9 mmol/L Normal 21.0-32.0 [facility] Comment on above: Performed By: #### C MP ####[facility] Mfimtdsocr7069[address] [place], [place] [address]Dr. Tadeo Smyth Creatinine [Mass/Vol] 0.75 mg/dL Normal 0.55-1.02 [facility] Comment on above: Performed By: #### C MP ####[facility] Ydftdycbhb1987[address] [place], [place] [address]Dr. Tadeo Smyth EGFR-AF PRYDEINIG >60 Normal >=60 [facility] Comment on above: Performed By: #### C MP ####[facility] Xzhnqzcgok1423 [place] [phone]. Tadeo Smyth EGFR-NON AF PRYDEINIG >60 Normal >=60 [facility] Comment on above: Performed By: #### C MP ####[facility] Qfzykvheui2510 [place] [phone]. Tadeo Smyth Globulin (S) [Mass/Vol] 3.3 g/dL Normal [facility] Comment on above: Performed By: #### C MP ####[facility] Yckhjocltw8176 [place] [phone]. Tadeo Smyth Glucose [Mass/Vol] 95 mg/dL Normal 74-106 [facility] Comment on above: Performed By: #### C MP ####[facility] Qaxbbvmmip7359 [place] [phone]. Tadeo Smyth Potassium [Moles/Vol] 3.8 mmol/L Normal 3.5-5.1 [facility] Comment on above: Performed By: #### C MP ####[facility] Ndkdsyozcr5431 [place] [phone]. Tadeo Smyth Protein [Mass/Vol] 6.2 g/dL Critically low 6.4-8.2 Th [facility] Comment on above: Performed By: #### C MP ####[facility] Nxuvefpadh6700 [place] [phone]. Tadeo Smyth Sodium [Moles/Vol] 141 mmol/L Normal 136-145 [facility] Comment on above: Performed By: #### C MP ####[facility] Ouijcwtoya9589 [place] [phone]. Tadeo Smyth Urea nitrogen [Mass/Vol] 8.0 mg/dL Normal 7.0-18.0 [facility] Comment on above: Performed By: #### C MP ####[facility] Munfzzgyda1264 [place] [phone]. Tadeo Haja Urea nitrogen/Creatinine [Mass ratio] 10.7 mg/mg Normal [facility] Comment on above: Performed By: #### C MP ####[facility] Pperxlgzaa1175 [place] [address]Dr. Tadeo Smyth UA (CLEAN/CATCH) STUDENT FINANCE ADVISOR/MICRO I F IND.on 03-28-2022 Bilirubin Ql (U) Negative Normal NEGATIVE [facility] Comment on above: Performed By: #### U ACSIND, UMICRO ####[facility] Fxzalgffeb4308 [place] [address]Dr. Tadeo Smyth Clarity (U) SL CLOUDY Abnormal CLEAR [facility] Comment on above: Performed By: #### U ACSIND, UMICRO ####[facility] Nhofhnhubj3406 [place] [address]Dr. Tadeo Smyth Color (U) LT. YELLOW Normal YELLOW [facility] Comment on above: Performed By: #### U ACSIND, UMICRO ####[facility] Menxmvtnjz9942 [place] [address]Dr. Tadeo Smyth Glucose Ql (U) Negative Normal NEGATIVE [facility] Comment on above: Performed By: #### U ACSIND, ICRO ####[facility] Gnsphdhpxs7081 [place] [address]Dr. Tadeo Smyth Hemoglobin Ql (U) TRACE-INTACT Abnormal NEGATIVE [facility] Comment on above: Performed By: #### U ACSIND, UMICRO ####[facility] Cqbphdwgtl6582 [place] [address]Dr. Tadeo Smyth Ketones Ql (U) TRACE Abnormal NEGATIVE [facility] Comment on above: Performed By: #### U ACSIND, UMICRO ####[facility] Dpwofeceqn8938 [place] [address]Dr. Tadeo Smyth LEUKOCYTES Negative Normal NEGATIVE [facility] Comment on above: Performed By: #### U ACSIND, UMICRO ####[facility] Zjzxocxgys0268 [place] [address]Dr. Tadeo Smyth Nitrite Ql (U) Negative Normal NEGATIVE [facility] Comment on above: Performed By: #### U ACSIND, UMICRO ####[facility] Yabrwqamxt3066 [place] [address]Dr. Tadeo Smyth pH (U) 6.5 [pH] Normal 5-9 [facility] Comment on above: Performed By: #### U KAROL GARVEY ####[facility] Ykqillovsa9454 [place] [address]Dr. Tadeo Smyth SPEC GRAVITY 1.015 Normal 1.005-<=1.[address] [place] [address] Comment on above: Performed By: #### SANDRO CARMICHAELRO ####[facility] Rdssgybtzl2160 [place] [address]Dr. Tadeo Smyth UA PROTEIN Negative Normal NEGATIVE/ TRACE [facility] Comment on above: Performed By: #### KAROL CARMICHAEL ####[facility] Oldaxuvyhe53[address] [place], [place] [address]Dr. Tadeo Smyth UR MICRO IND INDICATED Normal [facility] Comment on above: Performed By: #### KAROL CARMICHAEL ####[facility] Rsxorttluh6512 [place] [address]Dr. Margotnicole Smyth Urobilinogen Qn (U) 0.2 {Benito'U}/dL Normal 0.2 - 1. 0 [facility] Comment on above: Performed By: #### SANDRO CARMICHAELRO ####[facility] Hafnyncxij5949 [place] [address]Dr. Tadeo Smyth URINE MICROSCOPIC ONLYon BACTERIA MODERATE Abnormal NONE SEEN [facility] Comment on above: Performed By: #### SANDRO CARMICHAELRO ####[facility] Rwviqtycwi0150[address] [place], [place] [address]Dr. Tadeo Smyth Bacteria identified Cx Nom (U) INDICATED Normal [facility] Comment on above: Performed By: #### U SANDRO GARVEYRO ####[facility] Bajimstdwi31[address] [place], [place] [address]Dr. Tadeo Smyth CAST NONE SEEN Normal NONE SEEN [facility] Comment on above: Performed By: #### SANDRO CARMICHAELRO ####[facility] Omgpoapfpk0718 [place] [address]Dr. Tadeo Smyth Crystals LM Nom (Urine sed) NONE SEEN Normal NONE SEEN [facility] Comment on above: Performed By: #### U RANDI GARVEYICRO ####[facility] Sgacarmleo0544 [place] [phone]. Tadeo Smyth Epithelial cells LM Ql (Urine sed) RARE Normal NONE SEEN /RARE [facility] Comment on above: Performed By: #### U MARE UMICRO ####[facility] Ufjurxdccr9830 [place] [address]Dr. Tadeo Smyth MUCOUS NONE SEEN Normal NONE SEEN [facility] Comment on above: Performed By: #### U RANDI GARVEYICRO ####[facility] Uoriumbide6915[address] [place], [place] [address]Dr. Tadeo Smyth RBC NONE SEEN Abnormal 0-2 [facility] Comment on above: Performed By: #### [facility] ####[facility] Hynqvsaqre8079[address] [place], [place] [address]Dr. Tadeo Smyth WBC 2-5 Abnormal NONE SEEN [facility] Comment on above: Performed By: #### [facility] ####[facility] Shyyhqmecr045[address] [place], [place] [address]Dr. Tadeo Smyth XR ABD FLAT UP_PA Kasey 03-28 XR ABD FLAT UP_PA CH Normal [facility] CBC AUTO DIFFon 03-27-2022 BASO # 0.0 103/ul Normal 0.0-0.1 [facility] Comment on above: Performed By: #### C BC ####[facility] Uoyqgqlbvc004[address] [place], [place] [address]Dr. Tadeo Smyth Basophils/100 WBC (Bld) 0.5 % Normal 0.2-2.0 [facility] Comment on above: Performed By: #### C BC ####[facility] Beszukclng726[address] [place], [place] [address]Dr. Tadeo Smyth EO # 0.2 103/ul Normal 0.0-0.7 [facility] Comment on above: Performed By: #### C BC ####[facility] Pwruvciawo0170 [place] [phone]. Tadeo Smyth Eosinophils/100 WBC (Bld) 3.2 % Normal 0.9-7.0 [facility] Comment on above: Performed By: #### C BC ####[facility] Zccenefwgq0749 [place] [phone]. Tadeo Smyth Erythrocyte distribution width (RBC) [Ratio] 13.1 % Normal 11.0-15.0 [facility] Comment on above: Performed By: #### C BC ####[facility] Oetgahcohx1271 [place] [phone]. Tadeo Smyth Hematocrit (Bld) [Volume fraction] 34.8 % Critically low 36.0-48.0 [facility] Comment on above: Performed By: #### C BC ####[facility] Uhiqtvcuom0980[address] [place], [place] [address]Dr. Tadeo Smyth Hemoglobin (Bld) [Mass/Vol] 11.3 g/dL Critically low 12.0-16.0 [facility] Comment on above: Performed By: #### C BC ####[facility] Wvicrgnsaz5800[address] [place], [place] [address]Dr. Tadeo Smyth IG # 0.01 10e3/ul Normal 0.00-0.03 [facility] Comment on above: Performed By: #### C BC ####[facility] Xyubtazqnz0476[address] [place], [place] [address]Dr. Tadeo Smyth IG % 0.2 % Normal 0.0-0.5 [facility] Comment on above: Performed By: #### C BC ####[facility] Hsklkvrrjx806[address] [place], [place] [address]Dr. Tadeo Smyth LYMPH # 1.6 103/ul Normal 1.2-3.8 [facility] Comment on above: Performed By: #### C BC ####[facility] Sndzppljqe575[address] [place], [place] [address]Dr. Tadeo Smyth Lymphocytes/100 WBC (Bld) 29.1 % Normal 20.5-60.0 [facility] Comment on above: Performed By: #### C BC ####[facility] Cdrdtssyws3488 [place] [phone]. Tadeo Smyth MANUAL DIFF REQ NO Normal [facility] Comment on above: Performed By: #### C BC ####[facility] Drklgzofpv5260 [place] [phone]. Tadeo Smyth MCH (RBC) [Entitic mass] 29.1 pg Normal 26.7-34.0 [facility] Comment on above: Performed By: #### C BC ####[facility] Zzinkskroi[address] [place], [place] [address]Dr. Tadeo Smyth MCHC (RBC) [Mass/Vol] 32.5 g/dL Normal 29.9-35.2 [facility] Comment on above: Performed By: #### C BC ####[facility] Vwwscnsysq790[address] [place], [place] [address]Dr. Tadeo Smyth MCV (RBC) [Entitic vol] 89.7 fL Normal 81.0-99.0 [facility] Comment on above: Performed By: #### C BC ####[facility] Mykfvswlfc32[address] [place], [place] [address]Dr. Tadeo Smyth MONO # 0.3 103/ul Normal 0.3-0.8 [facility] Comment on above: Performed By: #### C BC ####[facility] Abluujeuvr2488[address] [place], [place] [address]Dr. Tadeo Haja Monocytes/100 WBC (Bld) 5.7 % Normal 1.7-12.0 [facility] Comment on above: Performed By: #### C BC ####[facility] Ccjywuerts[address] [place], [place] [address]Dr. Tadeo Smyth NEUT # 3.5 103/ul Normal 1.4-6.5 [facility] Comment on above: Performed By: #### C BC ####[facility] Mikdxxbsij7270[address] [place], [place] [address]Dr. Tadeo Smyth Neutrophils/100 WBC (Bld) 61.3 % Normal 43.0-75.0 [facility] Comment on above: Performed By: #### C BC ####[facility] Ppwqqfozws4533 [place], [place] [address]Nu. Tadeo Smyth Platelet mean volume (Bld) [Entitic vol] 9.1 fL Critically low 9.5-13.5 [facility] Comment on above: Performed By: #### C BC ####[facility] Dhmvefhlzl4573 [place], [place] [address]Pq. Tadeo Smyth PLT 355 103/ul Normal 150-450 [facility] Comment on above: Performed By: #### C BC ####[facility] Rhonsdlkuk1116 [place], [place] [address]Pz. Tadeo Smyth RBC 3.88 106/ul Critically low 4.20-5.40 [facility] Comment on above: Performed By: #### C BC ####[facility] [facility] [address] [place], [place] [address]Jt. Tadeo Smyth WBC 5.6 103/ul Normal 4.0-11.0 [facility] Comment on above: Performed By: #### C BC ####[facility] Sgckmdoivy13[address] [place], [place] [address]Cm. Tadeo Smyth CT ABD/PELV W CONon 03-27-20 CT ABD/PELV W CON Normal [facility] CT ABD/PELVIS WO CONon 03-27 CT ABD/PELVIS WO CON Normal [facility]on 03-06 SARS-CoV-2 (COVID-19) RNA CHEN+probe Ql (Unsp spec) Not detected Normal NOT DETECTED [facility] Comment on above: Result Comment: When [...] for this test is supported by the [place] of Health and Human Service's declaration that [...] be used). Performed By: #### C VDTB ####[facility] I[address]ytqwsw[address] [place], [place] [address]Dr. Tadeo Smyth ER URINE PROFILEon 2 Bilirubin Ql (U) Negative Normal NEGATIVE The [facility] Comment on above: Performed By: #### E RUR, PREGU ####[facility] Ffetqewlai[address] [place], [place] [address]Dr. Tadeo Smyth Clarity (U) CLEAR Normal CLEAR [facility] Comment on above: Performed By: #### E RUR, PREGU ####[facility] Wqojritxjj75[address] [place], [place] [address]Dr. Tadeo Smyth Color (U) LT. YELLOW Normal YELLOW [facility] Comment on above: Performed By: #### E RUR, PREGU ####[facility] Sesybbynwg[address] [place], [place] [address]Dr. Tadeo Smyth ERUAHD A micrscopic examina tion will be performed if indicated. Normal [facility] Comment on above: Performed By: #### E RUR, PREGU ####[facility] Pssjxdpavt[address] [place], [place] [address]Dr. Tadeo Smyth Glucose Ql (U) Negative Normal NEGATIVE The [facility] Comment on above: Performed By: #### E RUR, PREGU ####[facility] Eifqwkcdvs8[address] [place], [place] [address]Dr. Tadeo Smyth Hemoglobin Ql (U) SMALL Abnormal NEGATIVE The [facility] Comment on above: Performed By: #### E RUR, PREGU ####[facility] Bblpobdgnk[address] [place], [place] [address]Dr. Tadeo Smyth Ketones Ql (U) TRACE Abnormal NEGATIVE The [facility] Comment on above: Performed By: #### E RUR, PREGU ####[facility] [address] [place] [address]Dr. Tadeo Smyth LEUKOCYTES Negative Normal NEGATIVE [facility] Comment on above: Performed By: #### Matthew RUR, PREGU ####[facility] Vmkjjivenf1841 [place] [address]Dr. Tadeo Smyth Nitrite Ql (U) Negative Normal NEGATIVE The [facility] Comment on above: Performed By: #### Matthew FRANCISCO, PREGU ####[facility] Glqladhvtf79[address] [place] [address]Dr. Tadeo Smyth pH (U) 6.0 [pH] Normal 5-9 [facility] Comment on above: Performed By: #### Matthew FRANCISCO, PREGU ####[facility] Hmslnvjkat2492 [place] [address]Dr. Tadeo Smyth SPEC GRAVITY >=1.030 Abnormal 1.005-<=1.0 25 [facility] Comment on above: Performed By: #### Matthew FRANCISCO, PREGU ####[facility] [address]kmcsyzyj[address] [place], [place] [address]Dr. Tadeo Smyth UA PROTEIN Negative Normal NEGATIVE/ TRACE [facility] Comment on above: Performed By: #### Matthew FRANCISCO PREGU ####[facility] Kwdqfpewtl[address] [place], [place] [address]Dr. Tadeo Smyth UR MICRO IND NOT INDICATED Normal The [facility] Comment on above: Performed By: #### Matthew FRANCISCO, PREGU ####[facility] Suamznebtt[address] [place], [place] [address]Dr. Tadeo Smyth Urobilinogen Qn (U) 0.2 {Benito'U}/dL Normal 0.2 - 1. 0 [facility] Comment on above: Performed By: #### Matthew RUYovanny, PREGU ####[facility] Pjhudveuod[address] [place], [place] [address]Dr. Tadeo Smyth LIPASEon 03-27-2022 Lipase [Catalytic activity/Vol] 126.0 U/L Normal 73.0-393.0 [facility] Comment on above: Performed By: #### L IPA, CMP ####[facility] [address]jhla[address] [place] [id number]. Tadeo Smyth URon 03-27-2022 , QUAL Negative Normal NEGATIVE [facility] Comment on above: Performed By: #### E RUR, PREGU ####[facility] Sqsiuhqmjo9[address] [place] [address]Dr. Tadeo Smyth PROF 14(COMP METB)on 022 Albumin [Mass/Vol] 3.6 g/dL Normal 3.4-5.0 [facility] Comment on above: Performed By: #### L IPA, CMP ####[facility] Yfcixgnsuz8383 [place] [address]Dr. Tadeo Smyth Albumin/Globulin [Mass ratio] 1.1 {ratio} Normal [facility] Comment on above: Performed By: #### L IPA, CMP ####[facility] Kktiwpljzm7327 [place] [address]Dr. Tadeo Smyth ALP [Catalytic activity/Vol] 139 U/L Critically high 46-116 [facility] Comment on above: Performed By: #### L IPA, CMP ####[facility] [address]hegoprnnk6[address] [place] [address]Dr. Tadeo Smyth ALT [Catalytic activity/Vol] 18 U/L Normal 14-59 [facility] Comment on above: Performed By: #### L IPA, CMP ####[facility] Pfktvrvvwb5266 [place] [address]Dr. Tadeo Smyth Anion gap [Moles/Vol] 10.7 mmol/L Normal [facility] Comment on above: Performed By: #### L IPA, CMP ####[facility] Shgsfkkjci8522 [place] [address]Dr. Tadeo Smyth AST [Catalytic activity/Vol] 11 U/L Critically low 15-37 [facility] Comment on above: Performed By: #### L IPA, CMP ####[facility] Tnyhzxxuxt6956 [place] [address]Dr. Tadeo Smyth Bilirubin [Mass/Vol] 0.2 mg/dL Normal 0.2-1.0 [facility] Comment on above: Performed By: #### L IPA, CMP ####[facility] Rpknybycyv4100 [place] [address]Dr. Tadeo Smyth Calcium [Mass/Vol] 9.0 mg/dL Normal 8.5-10.1 The [facility] Comment on above: Performed By: #### L IPA, CMP ####[facility] Efbnfufanh[address] [place], [place] [address]Dr. Tadeo Smyth Chloride [Moles/Vol] 106 mmol/L Normal 98-107 [facility] Comment on above: Performed By: #### L IPA, CMP ####[facility] Xfzzofwyvs024[address] [place], [place] [address]Dr. Tadeo Smyth CO2 [Moles/Vol] 26.9 mmol/L Normal 21.0-32.0 The [facility] Comment on above: Performed By: #### L IPA, CMP ####[facility] Kzoradeocx6[address] [place], [place] [address]Dr. Tadeo Smyth Creatinine [Mass/Vol] 0.84 mg/dL Normal 0.55-1.02 [facility] Comment on above: Performed By: #### L IPA, CMP ####[facility] Syinvozcch01[address] [place], [place] [address]Dr. Tadeo Smyth EGFR-AF PRYDEINIG >60 Normal >=60 The [facility] Comment on above: Performed By: #### L IPA, CMP ####[facility] Iibrblahck9109[address] [place], [place] [address]Dr. Tadeo Smyth EGFR-NON AF PRYDEINIG >60 Normal >=60 [facility] Comment on above: Performed By: #### L IPA, CMP ####[facility] Wrgxxotaih[address] [place], [place] [address]Dr. Tadeo Smyth Globulin (S) [Mass/Vol] 3.4 g/dL Normal [facility] Comment on above: Performed By: #### L IPA, CMP ####[facility] Qbarmkhnxf450[address] [place], [place] [address]Dr. Tadeo Smyth Glucose [Mass/Vol] 96 mg/dL Normal 74-106 The [facility] Comment on above: Performed By: #### L IPA, CMP ####[facility] Oskysfiuvj3417 [place] [address]Dr. Tadeo Smyth Potassium [Moles/Vol] 3.6 mmol/L Normal 3.5-5.1 [facility] Comment on above: Performed By: #### L IPA, CMP ####[facility] Adtgwsxlns87[address] [place], [place] [address]Dr. Tadeo Smyth Protein [Mass/Vol] 7.0 g/dL Normal 6.4-8.2 The [facility] Comment on above: Performed By: #### L IPA, CMP ####[facility] Iigebjbidz7[address] [place], [place] [address]Dr. Margotnicole Smyth Sodium [Moles/Vol] 140 mmol/L Normal 136-145 [facility] Comment on above: Performed By: #### L IPA, CMP ####[facility] Sulvppdhft[address] [place], [place] [address]Dr. Tadeo Smyth Urea nitrogen [Mass/Vol] 23.0 mg/dL Critically high 7.0-18.0 [facility] Comment on above: Performed By: #### L IPA, CMP ####[facility] Dkvawronvy[address] [place], [place] [address]Dr. Tadeo Smyth Urea nitrogen/Creatinine [Mass ratio] 27.4 mg/mg Normal [facility] Comment on above: Performed By: #### L IPA, CMP ####[facility] Qsvwulehns209[address] [place], [place] [address]Dr. Tadeo Smyth GROUP A STREP CULTUREon S. pyogenes Ag Ql (Unsp spec) Normal [facility] Comment on above: Performed By: #### G RASTCX, SSCRN ####[facility] Qfdekvwesr[address] [place], [place] [address]Dr. Tadeo Smyth AMYLASEon 02-02-2022 Amylase [Catalytic activity/Vol] 37 U/L Normal 25-115 [facility] Comment on above: Performed By: #### C MP, VIJI, LIPA ####[facility] Ieziktldwb[address] [place], [place] [address]Dr. Taedo Smyth CBC AUTO DIFFon 02-02-2022 BASO # 0.0 103/ul Normal 0.0-0.1 [facility] Comment on above: Performed By: #### C BC ####[facility] V[address]pxbqna16[address] [place] [address]Dr. Tadeo Smyth Basophils/100 WBC (Bld) 0.2 % Normal 0.2-2.0 [facility] Comment on above: Performed By: #### C BC ####[facility] Crxjquqqug6159 [place] [address]Dr. Tadeo Smyth EO # 0.0 103/ul Normal 0.0-0.7 [facility] Comment on above: Performed By: #### C BC ####[facility] Nprhnxzwke8153 [place] [address]Dr. Tadeo Smyth Eosinophils/100 WBC (Bld) 0.2 % Critically low 0.9-7.0 [facility] Comment on above: Performed By: #### C BC ####[facility] Gngvrmxoqa7075 [place] [address]Dr. Tadeo Smyth Erythrocyte distribution width (RBC) [Ratio] 13.4 % Normal 11.0-15.0 [facility] Comment on above: Performed By: #### C BC ####[facility] Zntffxlnqh2883 [place] [address]Dr. Tadeo Smyth Hematocrit (Bld) [Volume fraction] 36.8 % Normal 36.0-48.0 [facility] Comment on above: Performed By: #### C BC ####[facility] Eovahnfmxy8846 [place] [address]Dr. Tadeo Smyth Hemoglobin (Bld) [Mass/Vol] 11.6 g/dL Critically low 12.0-16.0 [facility] Comment on above: Performed By: #### C BC ####[facility] Pdqendxqcp0187 [place] [address]Dr. Tadeo Haja IG # 0.08 10e3/ul Critically high 0.00-0.03 The [facility] Comment on above: Performed By: #### C BC ####[facility] Z[address]jd[address] [place], [place] [address]Od. Tadeo Smyth IG % 0.6 % Critically high 0.0-0.5 The [facility] Comment on above: Performed By: #### C BC ####[facility] Fquungyfdy27[address] [place], [place] [address]Db. Tadeo Smyth LYMPH # 0.9 103/ul Critically low 1.2-3.8 The [facility] Comment on above: Performed By: #### C BC ####[facility] Tcuseiyopu22[address] [place] [phone]. Tadeo Smyth Lymphocytes/100 WBC (Bld) 6.9 % Critically low 20.5-60.0 [facility] Comment on above: Performed By: #### C BC ####[facility] Fvlxkimqpf9042 [place] [phone]. Tadeo Smyth MANUAL DIFF REQ NO Normal The [facility] Comment on above: Performed By: #### C BC ####[facility] Elwxclbojb9885 [place] [phone]. Tadeo Smyth MCH (RBC) [Entitic mass] 28.9 pg Normal 26.7-34.0 [facility] Comment on above: Performed By: #### C BC ####[facility] Gmcnbgxjdm8421 [place] [phone]. Tadeo Smyth MCHC (RBC) [Mass/Vol] 31.5 g/dL Normal 29.9-35.2 [facility] Comment on above: Performed By: #### C BC ####[facility] Glwoanyobx9913 [place] [phone]. Tadeo Smyth MCV (RBC) [Entitic vol] 91.8 fL Normal 81.0-99.0 [facility] Comment on above: Performed By: #### C BC ####[facility] Pgjqobmyoe1858 [place] [phone]. Tadeo Smyth MONO # 0.9 103/ul Critically high 0.3-0.8 The [facility] Comment on above: Performed By: #### C BC ####[facility] [address]zt[address] [place] [phone]. Tadeo Smyth Monocytes/100 WBC (Bld) 6.9 % Normal 1.7-12.0 [facility] Comment on above: Performed By: #### C BC ####[facility] Isjkhqbzjs8742 [place] [phone]. Tadeo Smyth NEUT # 11.6 103/ul Critically high 1.4-6.5 The [facility] Comment on above: Performed By: #### C BC ####[facility] Epkxbnabha4035 [place] [phone]. Tadeo Smyth Neutrophils/100 WBC (Bld) 85.2 % Critically high 43.0-75.0 [facility] Comment on above: Performed By: #### C BC ####[facility] Yebximbzlf6103 [place] [phone]. Tadeo Smyth Platelet mean volume (Bld) [Entitic vol] 8.9 fL Critically low 9.5-13.5 [facility] Comment on above: Performed By: #### C BC ####[facility] Wbfqtiiijj3612 [place] [phone]. Tadeo Smyth PLT 331 103/ul Normal 150-450 [facility] Comment on above: Performed By: #### C BC ####[facility] Oflhrglkbm5271 [place] [phone]. Tadeo Smyth RBC 4.01 106/ul Critically low 4.20-5.40 The [facility] Comment on above: Performed By: #### C BC ####[facility] Gruwebffgo5918 [place] [phone]. Tadeo Smyth WBC 13.7 103/ul Critically high 4.0-11.0 The [facility] Comment on above: Performed By: #### C BC ####[facility] Pbvokilkow7824 [place] [phone]. Tadeo Smyth Covid-19 PCR ([facility]on 01-05 SARS-CoV-2 (COVID-19) RNA CHEN+probe Ql (Unsp spec) Not detected Normal NOT DETECTED [facility] Comment on above: Result Comment: When [...] for this test is supported by the [place] of Health and Human Service's declaration that [...] Performed By: #### C VDTBH ####[facility] Ddfasufbch[address] [place], [place] [address]Dr. Tadeo Smyth LIPASEon 02-02-2022 Lipase [Catalytic activity/Vol] 33.0 U/L Critically low 73.0-393.0 [facility] Comment on above: Performed By: #### C VIJI GARCIA LIPA ####[facility] Mpatabtghh599[address] [place], [place] [address]Dr. Tadeo Smyth MONOon 02-02-2022 Monocytes (Bld) [#/Vol] Negative Normal NEGATIVE [facility] Comment on above: Performed By: #### M JESSICA ####[facility] Oegmwafwoq8260[address] [place], [place] [address]Dr. Tadeo Smyth PROF 14(COMP METB)on 022 Albumin [Mass/Vol] 3.1 g/dL Critically low 3.4-5.0 Th e [facility] Comment on above: Performed By: #### C VIJI GARCIA LIPA ####[facility] Epmnnwkffi[address] [place], [place] [address]Dr. Tadeo Smyth Albumin/Globulin [Mass ratio] 0.9 {ratio} Normal [facility] Comment on above: Performed By: #### C MP, VIJI, LIPA ####[facility] Trztaqjdrx2676 [place] [address]Dr. Tadeo Smyth ALP [Catalytic activity/Vol] 131 U/L Critically high 46-116 [facility] Comment on above: Performed By: #### C MP, VIJI, LIPA ####[facility] Wzohzwqjwu3601 [place] [address]Dr. Tadeo Smyth ALT [Catalytic activity/Vol] 25 U/L Normal 14-59 [facility] Comment on above: Performed By: #### C MP, VIJI, LIPA ####[facility] Xiuwxhkujq[address] [place], [place] [address]Dr. Tadeo Smyth Anion gap [Moles/Vol] 10.0 mmol/L Normal [facility] Comment on above: Performed By: #### C MP, VIJI, LIPA ####[facility] Juruwmelol2[address] [place], [place] [address]Dr. Tadeo Smyth AST [Catalytic activity/Vol] 19 U/L Normal 15-37 [facility] Comment on above: Performed By: #### C MP, VIJI, LIPA ####[facility] Onuldwiejc[address] [place], [place] [address]Dr. Tadeo Smyth Bilirubin [Mass/Vol] 0.6 mg/dL Normal 0.2-1.0 [facility] Comment on above: Performed By: #### C MP, VIJI, LIPA ####[facility] Pkoyipmjtj[address] [place], [place] [address]Dr. Tadeo Smyth Calcium [Mass/Vol] 8.2 mg/dL Critically low 8.5-10.1 [facility] Comment on above: Performed By: #### C MP, VIJI, LIPA ####[facility] [address]jilqqdh[address] [place], [place] [address]Dr. Tadeo Smyth Chloride [Moles/Vol] 106 mmol/L Normal 98-107 [facility] Comment on above: Performed By: #### C MP, VIJI, LIPA ####[facility] Ovwnwehwxm86[address] [place], [place] [address]Dr. Yilan Smyth CO2 [Moles/Vol] 25.5 mmol/L Normal 21.0-32.0 The [facility] Comment on above: Performed By: #### C VIJI GARCIA, LIPA ####[facility] Uuhywsmfrl2563 [place] [address]Dr. Tadeo Smyth Creatinine [Mass/Vol] 0.78 mg/dL Normal 0.55-1.02 [facility] Comment on above: Performed By: #### C JOSE VIJI, LIPA ####[facility] Ymkttitwxn9026 [place] [address]Dr. Tadeo Smyth EGFR-AF PRYDEINIG >60 Normal >=60 [facility] Comment on above: Performed By: #### C VIJI GARCIA, LIPA ####[facility] Kvqbpbbeal6958 [place] [address]Dr. Tadeo Smyth EGFR-NON AF PRYDEINIG >60 Normal >=60 [facility] Comment on above: Performed By: #### C JOSE VIJI, LIPA ####[facility] Gpxgpfkbar9552 [place] [address]Dr. Tadeo Smyth Globulin (S) [Mass/Vol] 3.6 g/dL Normal [facility] Comment on above: Performed By: #### C VIJI GARCIA, LIPA ####[facility] Ctzqhtgkxf5174 [place] [address]Dr. Tadeo Smyth Glucose [Mass/Vol] 110 mg/dL Critically high 74-106 [facility] Comment on above: Performed By: #### C JOSE VIJI, LIPA ####[facility] Lhcpydbmqj9534 [place] [address]Dr. Tadeo Smyth Potassium [Moles/Vol] 3.5 mmol/L Normal 3.5-5.1 [facility] Comment on above: Performed By: #### C JOSE VIJI, LIPA ####[facility] Wnaflrnifx8971 [place] [address]Dr. Tadeo Smyth Protein [Mass/Vol] 6.7 g/dL Normal 6.4-8.2 The [facility] Comment on above: Performed By: #### C MP VIJI, LIPA ####[facility] Znabzvewge1512 [place] [phone]. Tadeo Smyth Sodium [Moles/Vol] 138 mmol/L Normal 136-145 The [facility] Comment on above: Performed By: #### C MP, VIJI, LIPA ####[facility] Kkjaqasxmm0177 [place] [phone]. Tadeo Smyth Urea nitrogen [Mass/Vol] 11.0 mg/dL Normal 7.0-18.0 [facility] Comment on above: Performed By: #### C MP, VIJI, LIPA ####[facility] Jpbybyirpw2126 [place] [phone]. Tadeo Smyth Urea nitrogen/Creatinine [Mass ratio] 14.1 mg/mg Normal [facility] Comment on above: Performed By: #### C MP, VIJI, LIPA ####[facility] Xfkwpvvgym0306 [place] [phone]. Tadeo Smyth STREPT SCREENon 02-02-2022 STREP SCREEN A Negative Normal NEGATIVE [facility] Comment on above: Performed By: #### G RASTCX, SSCRN ####[facility] Jqxdplaoge2607 [place] [phone]. Tadeo Smyth BASIC METABOLIC PANELon 08-05 Calcium [Mass/Vol] 8.4 mg/dL Low 8.6-10.3 The [facility] Comment on above: Order Comment: No: D o not add to previous draw Performed By: #### 3 6901, 82857 #### [facility] [address] [address], [facility] Chloride [Moles/Vol] 108 mmol/L High 98-107 The [facility] Comment on above: Order Comment: No: D o not add to previous draw Performed By: #### 3 6901, 32230 #### [facility] [address] [place] [address], [place] CO2 [Moles/Vol] 26 mmol/L Normal 21-31 The [facility] Comment on above: Order Comment: No: D o not add to previous draw Performed By: #### 3 208, 96188 #### [facility] [address] [place] [address], [place] Creatinine [Mass/Vol] 0.79 mg/dL Normal 0.60-1.20 The [facility] Comment on above: Order Comment: No: D o not add to previous draw Performed By: #### 3 578, 27445 #### [facility] [address] [place] [address], [place] GFR/1.73 sq M predicted among blacks MDRD (S/P/Bld) [Vol rate/Area] mL/min/{1.73_m2} Normal >60 The [facility] Comment on above: Order Comment: No: D o not add to previous draw Performed By: #### 3 932, 98667 #### [facility] [address] [place] [address], [place] GFR/1.73 sq M predicted among non-blacks MDRD (S/P/Bld) [Vol rate/Area] mL/min/{1.73_m2} Normal >60 The [facility] Comment on above: Order Comment: No: D o not add to previous draw Performed By: #### 3 990, 04037 #### [facility] [address] [place] [address], [place] Glucose [Mass/Vol] 98 mg/dL Normal 70-100 The [facility] Comment on above: Order Comment: No: D o not add to previous draw Performed By: #### 3 862, 20623 #### [facility] [address] [place] [address], [place] Potassium [Moles/Vol] 3.5 mmol/L Normal 3.5-5.1 The [facility] Comment on above: Order Comment: No: D o not add to previous draw Performed By: #### 3 712, 77817 #### [facility] [address] [place] [address], [place] Sodium [Moles/Vol] 139 mmol/L Normal 136-145 The [facility] Comment on above: Order Comment: No: D o not add to previous draw Performed By: #### 3 8921, 01067 #### [facility] [address] [place] [address], [facility] Urea nitrogen [Mass/Vol] 11 mg/dL Normal 7-25 The [facility] Comment on above: Order Comment: No: D o not add to previous draw Performed By: #### 3 9301, 65951 #### [facility] [address] [place] [address], [facility] BLOOD STOOL GUAIACon 019 BLD STOOL GUAIAC Negative Normal NEGATIVE The [facility] Comment on above: Order Comment: No: D o not add to previous draw Performed By: #### 3 6901, 90631 #### [facility] [address] [address], [facility] MAGNESIUM BLOODon 08-16-2019 Magnesium [Mass/Vol] 2.0 mg/dL Normal 1.9-2.7 The [facility] Comment on above: Order Comment: No: D o not add to previous draw Performed By: #### 3 3891, 69276 #### [facility] [address] *URINE CULTUREon 08-15-2019 Bacteria identified Cx Nom (U) Clinical Report: (D) Specimen/Source: URINE/MIDSTREAM Collected: 08/15/2019 20:40 Status: Final Last Updated: 08/17/2019 08:05 ISO (Final) Escherichia coli >100,000 Cfu/Ml ISOLATE: Escherichia coli RHONDA (mcg/ml) AMP./SULBAC (AMS) 16/8 Intermediate AMPICILLIN (AM) >16 Resistant AZTREONAM (AZM) <=1 Susceptible CEFAZOLIN (CZ) 2 Susceptible CEFTRIAXONE (BRACER) <=0.5 Susceptible CIPROFLOXACIN (CIP) >2 Resistant ESBL (-/+) (ESBL) Negative GENTAMICIN (GM) <=1 Susceptible NITROFURANTOIN (FT) <=16 Susceptible PIP/TAZO (TZP) 4/4 Susceptible TOBRAMYCIN (TOB) 1 Susceptible TRIMETH/SULFA (SXT) >2/38 Resistant Normal [facility] Comment on above: Performed By: #### 3 6901, 50406 #### [facility] [address] BASIC METABOLIC PANELon 12- Calcium [Mass/Vol] 8.8 mg/dL Normal 8.6-10.3 [facility] Comment on above: Order Comment: No: D o not add to previous draw Performed By: #### 0 0071, 48141, 82978 #### [facility] [address] [place] [address], [facility] Chloride [Moles/Vol] 107 mmol/L Normal 98-107 [facility] Comment on above: Order Comment: No: D o not add to previous draw Performed By: #### 0 0071, 25452, 26376 #### [facility] [address] [place] [address], [facility] CO2 [Moles/Vol] 27 mmol/L Normal 21-31 [facility] Comment on above: Order Comment: No: D o not add to previous draw Performed By: #### 0 0071, 50138, 80677 #### [facility] [address] [place] [address], [facility] Creatinine [Mass/Vol] 0.99 mg/dL Normal 0.60-1.20 [facility] Comment on above: Order Comment: No: D o not add to previous draw Performed By: #### 0 0071, 59736, 35079 #### [facility] [address] [place] [address], [facility] GFR/1.73 sq M predicted among blacks MDRD (S/P/Bld) [Vol rate/Area] mL/min/{1.73_m2} Normal >60 [facility] Comment on above: Order Comment: No: D o not add to previous draw Performed By: #### 0 0071, 49519, 45875 #### [facility] [address] [place] [address], [place] GFR/1.73 sq M predicted among non-blacks MDRD (S/P/Bld) [Vol rate/Area] 59 ml/min/1.73sq m Abnormal >60 [facility] Comment on above: Order Comment: No: D o not add to previous draw Performed By: #### 0 0071, 04587, 16099 #### [facility] [address] [place] [address], [place] Glucose [Mass/Vol] 100 mg/dL Normal 70-100 [facility] Comment on above: Order Comment: No: D o not add to previous draw Performed By: #### 0 0071, 18575, 54967 #### [facility] [address] [place] [address], [place] Potassium [Moles/Vol] 3.6 mmol/L Normal 3.5-5.1 [facility] Comment on above: Order Comment: No: D o not add to previous draw Performed By: #### 0 0071, 67614, 89464 #### [facility] [address] [place] [address], [place] Sodium [Moles/Vol] 140 mmol/L Normal 136-145 [facility] Comment on above: Order Comment: No: D o not add to previous draw Performed By: #### 0 0071, 59947, 37153 #### [facility] [address] [place] [address], [place] Urea nitrogen [Mass/Vol] 9 mg/dL Normal 7-25 [facility] Comment on above: Order Comment: No: D o not add to previous draw Performed By: #### 0 0071, 24676, 43294 #### [facility] [address] LACTATE BLOODon 08-15-2019 Lactate [Moles/Vol] 0.8 mmol/L Normal 0.5-2.2 [facility] Comment on above: Order Comment: Yes: Add to Previous draw if able Performed By: #### 1 0054 #### [facility] [address] [place] [address], [facility] LMWH HEPARIN ASSAYon 019 LOW MOLECULAR WEIGHT HEPARIN 0.32 IU/mL Low 0.60-1.20 [facility] Comment on above: Order Comment: (draw 4 hours after enoxaparin dose) needed if patient > 150kg or BMI >50 not usually necessary but consider in renal dysfunction, hepaticdysfunction, , children, very underweight, or overweightNo: Do not add to previous drawPER RN TY, PATIENT RECEIVES DOSE AT 9 AM. TRY AGAIN AT 1300.PER RN DAINA LOVENOX WAS GIVEN TO PATIENT AT 10AM [...] and LMWH. Performed By: #### 3 6901, 69348 #### [facility] [address] [place] [address], [facility] MAGNESIUM BLOODon 08-15-2019 Magnesium [Mass/Vol] 1.7 mg/dL Low 1.9-2.7 [facility] Comment on above: Order Comment: No: D o not add to previous draw Performed By: #### 0 0071, 82877, 65252 #### [facility] [address] [place] [address], [facility] PHOSPHORUS BLOODon 9 Phosphate [Mass/Vol] 4.1 mg/dL Normal 2.5-5.0 [facility] Comment on above: Order Comment: No: D o not add to previous draw Performed By: #### 0 0071, 81700, 27733 #### [place] [address], [facility] UGI WITH SMALL BOWELon 08-15 UGI WITH SMALL BOWEL [facility] Department of Radiology [address] [place] [id number] Patient Name: CONSTANTINO CARDOSO : 1970 Sex: F Age: Race: White Pt. Location: [address] [place] [address] Patient Status: O Ordered Date: 08/15/2019 10:45:00 [...] ischemia. Electronically signed by:Orestes Condon. Transcribed by: [email or web address], User Resident: Electronically Signed by: ORESTES CONDON @ 08/15/2019 04:13 PM Normal [facility] Comment on above: Order Comment: R/O O bstruction URINALYSIS REFLEXon 08-15-20 19 Appearance (U) SL CLOUDY Abnormal CLEAR [facility] Comment on above: Order Comment: No: D o not add to previous drawCriteria for reflexing a culture was met. Urine Culture and sensitivitywill be performed. Performed By: #### 3 8401, 65072 #### [facility] [address] [place] [address], [facility] Bilirubin [Mass/Vol] Negative Normal NEGATIVE [facility] Comment on above: Order Comment: No: D o not add to previous drawCriteria for reflexing a culture was met. Urine Culture and sensitivitywill be performed. Performed By: #### 3 4371, 44740 #### [facility] [address] [place] [address], [place] BLOOD SMALL Abnormal NEGATIVE [facility] Comment on above: Order Comment: No: D o not add to previous drawCriteria for reflexing a culture was met. Urine Culture and sensitivitywill be performed. Performed By: #### 3 3441, 18237 #### [facility] [address] [place] [id number], [place] Color (U) YELLOW Normal YELLOW [facility] Comment on above: Order Comment: No: D o not add to previous drawCriteria for reflexing a culture was met. Urine Culture and sensitivitywill be performed. Performed By: #### 3 690, 06196 #### [facility] [address] [place] [address], [facility] EPIS OCC Normal FEW,OCC,NON E SEEN [facility] Comment on above: Order Comment: No: D o not add to previous drawCriteria for reflexing a culture was met. Urine Culture and sensitivitywill be performed. Performed By: #### 3 690, 50334 #### [facility] [address] [place] [address], [facility] Glucose [Mass/Vol] Negative Normal NEGATIVE [facility] Comment on above: Order Comment: No: D o not add to previous drawCriteria for reflexing a culture was met. Urine Culture and sensitivitywill be performed. Performed By: #### 3 690, 63694 #### [facility] [address] [place] [address], [facility] HYALINE CASTS 6-10 Abnormal NONE SEEN [facility] Comment on above: Order Comment: No: D o not add to previous drawCriteria for reflexing a culture was met. Urine Culture and sensitivitywill be performed. Performed By: #### 3 349, 27011 #### [facility] [address] [facility] [address], [facility] KETONE Negative Normal NEGATIVE [facility] Comment on above: Order Comment: No: D o not add to previous drawCriteria for reflexing a culture was met. Urine Culture and sensitivitywill be performed. Performed By: #### 3 428, 93079 #### [facility] [address] [place] [address], [facility] LEUK JONN MODERATE Abnormal NEGATIVE [facility] Comment on above: Order Comment: No: D o not add to previous drawCriteria for reflexing a culture was met. Urine Culture and sensitivitywill be performed. Performed By: #### 3 008, 48841 #### [facility] [address] [place] [address], [facility] MUCUS THREADS FEW Abnormal NONE SEEN [facility] Comment on above: Order Comment: No: D o not add to previous drawCriteria for reflexing a culture was met. Urine Culture and sensitivitywill be performed. Performed By: #### 3 580, 87230 #### [facility] [address] [place] [address], [place] Nitrite Ql (U) Negative Normal NEGATIVE [facility] Comment on above: Order Comment: No: D o not add to previous drawCriteria for reflexing a culture was met. Urine Culture and sensitivitywill be performed. Performed By: #### 3 418, 27425 #### [facility] [address] [place] [address], [facility] pH (Bld) 5.0 Normal 5.0-8.0 [facility] Comment on above: Order Comment: No: D o not add to previous drawCriteria for reflexing a culture was met. Urine Culture and sensitivitywill be performed. Performed By: #### 3 020, 96854 #### [facility] [address] [place] [address], [place] Protein (U) [Mass/Vol] Negative Normal NEGATIVE [facility] Comment on above: Order Comment: No: D o not add to previous drawCriteria for reflexing a culture was met. Urine Culture and sensitivitywill be performed. Performed By: #### 3 748, 01482 #### [facility] [address] [place] [address], [place] RBC (U) [#/Vol] 6-10 Abnormal NONE SEEN [facility] Comment on above: Order Comment: No: D o not add to previous drawCriteria for reflexing a culture was met. Urine Culture and sensitivitywill be performed. Performed By: #### 3 8661, 76287 #### [facility] [address] [place] [address], [place] SPEC GRAV 1.025 High 1.015-1.020 [facility] Comment on above: Order Comment: No: D o not add to previous drawCriteria for reflexing a culture was met. Urine Culture and sensitivitywill be performed. Performed By: #### 3 6901, 25283 #### [facility] [address] [place] [address], [facility] WBC UA 51-100 Abnormal NONE SEEN [facility] Comment on above: Order Comment: No: D o not add to previous drawCriteria for reflexing a culture was met. Urine Culture and sensitivitywill be performed. Performed By: #### 3 6901, 82888 #### [facility] [address] CBC COMPLETE BLOOD COUNTon 10-15-2018 Erythrocyte distribution width (RBC) [Ratio] 12.7 % Normal 11.5-15.0 [facility] Comment on above: Order Comment: No: D o not add to previous draw Performed By: #### 5 0608 #### [facility] [address] Hematocrit (Bld) [Volume fraction] 31.2 % Low 36.0-45.0 [facility] Comment on above: Order Comment: No: D o not add to previous draw Performed By: #### 5 0608 #### [facility] [address] [place] [address], [facility] Hemoglobin (Bld) [Mass/Vol] 9.8 g/dL Low 12.0-15.0 [facility] Comment on above: Order Comment: No: D o not add to previous draw Performed By: #### 5 0608 #### [facility] [address] [place] [address], [facility] MCH (RBC) [Entitic mass] 29.1 pg Normal 27.0-33.0 [facility] Comment on above: Order Comment: No: D o not add to previous draw Performed By: #### 5 0608 #### [facility] [address] MCHC (RBC) [Mass/Vol] 31.4 g/dL Low 32.0-35.0 [facility] Comment on above: Order Comment: No: D o not add to previous draw Performed By: #### 5 0608 #### [facility] [address] [place] [id number], [facility] MCV (RBC) [Entitic vol] 92.6 fL Normal 82.0-98.0 [facility] Comment on above: Order Comment: No: D o not add to previous draw Performed By: #### 5 0608 #### [facility] [address] [place] [address], [facility] Nucleated RBC/100 WBC (Bld) [Ratio] 0 % Normal 0-0 [facility] Comment on above: Order Comment: No: D o not add to previous draw Performed By: #### 5 0608 #### [facility] [address] [place] [address], [facility] PLAT CNT 340 10*3/uL Normal 150-400 [facility] Comment on above: Order Comment: No: D o not add to previous draw Performed By: #### 5 0608 #### [facility] [address] [place] [address], [facility] RBC (Bld) [#/Vol] 3.37 10*6/uL Low 3.80-5.00 [facility] Comment on above: Order Comment: No: D o not add to previous draw Performed By: #### 5 0608 #### [facility] [address] [place] [id number], [place] WBC (Bld) [#/Vol] 6.04 10*3/uL Normal 4.00-10.60 [facility] Comment on above: Order Comment: No: D o not add to previous draw Performed By: #### 5 0608 #### [facility] [address] [place] [id number] PROTHROMBIN TIMEon 9 INR Coag (PPP) [Relative time] 1.09 {INR} Normal 0.91-1.16 [facility] Comment on above: Order Comment: No: D [...] Performed By: #### 5 6101 #### [address] PT Coag (PPP) [Time] 14.1 s Normal 12.3-14.8 [facility] Comment on above: Order Comment: No: D o not add to previous draw Result Comment: ALL RESULTS MUST BE INTERPRETED WITH RESPECT TO BLOOD DRAWING ARTIFACT OR DILUTION ERROR OF ANTICOAGULANT AT THE TIME OF SAMPLING. Performed By: #### 5 6101 #### [address] LIVER 08-14-2019 LIVER [facility] Department of Radiology [address] [place] [id number] Patient Name: CONSTANTINO CARDOSO : 1970 Sex: F Age: Race: White Pt. Location: [address] [place] [address] Patient Status: O Ordered Date: 08/13/2019 8:30:00 [...] cholecystectomy. Electronically signed by:Orestes Condon. Transcribed by: [email or web address], User Resident: Electronically Signed by: ORESTES CONDON @ 08/14/2019 02:09 PM Normal [facility] Comment on above: Order Comment: R/O S tones BASIC METABOLIC PANELon -0 Calcium [Mass/Vol] 9.4 mg/dL Normal 8.6-10.3 [facility] Comment on above: Order Comment: No: D o not add to previous draw Performed By: #### 3 341, 40838 #### [facility] [address] [place] [address], [place] Chloride [Moles/Vol] 105 mmol/L Normal 98-107 [facility] Comment on above: Order Comment: No: D o not add to previous draw Performed By: #### 3 509, 85282 #### [facility] [address] [place] [address], [place] CO2 [Moles/Vol] 26 mmol/L Normal 21-31 [facility] Comment on above: Order Comment: No: D o not add to previous draw Performed By: #### 3 595, 44899 #### [facility] [address] [place] [address], [place] Creatinine [Mass/Vol] 1.03 mg/dL Normal 0.60-1.20 [facility] Comment on above: Order Comment: No: D o not add to previous draw Performed By: #### 3 210, 47795 #### [facility] [address] [place] [address], [place] GFR/1.73 sq M predicted among blacks MDRD (S/P/Bld) [Vol rate/Area] mL/min/{1.73_m2} Normal >60 [facility] Comment on above: Order Comment: No: D o not add to previous draw Performed By: #### 3 702, 57590 #### [facility] [address] [place] [address], [place] GFR/1.73 sq M predicted among non-blacks MDRD (S/P/Bld) [Vol rate/Area] 57 ml/min/1.73sq m Abnormal >60 [facility] Comment on above: Order Comment: No: D o not add to previous draw Performed By: #### 3 334, 54270 #### [facility] [address] [place] [address], [place] Glucose [Mass/Vol] 96 mg/dL Normal 70-100 [facility] Comment on above: Order Comment: No: D o not add to previous draw Performed By: #### 3 785, 51534 #### [facility] [address] [place] [address], [facility] Potassium [Moles/Vol] 4.1 mmol/L Normal 3.5-5.1 [facility] Comment on above: Order Comment: No: D o not add to previous draw Performed By: #### 3 411, 53068 #### [facility] [address] [place] [id number], [facility] Sodium [Moles/Vol] 138 mmol/L Normal 136-145 [facility] Comment on above: Order Comment: No: D o not add to previous draw Performed By: #### 3 909, 42280 #### [facility] [address] [place] [id number], [facility] Urea nitrogen [Mass/Vol] 16 mg/dL Normal 7-25 [facility] Comment on above: Order Comment: No: D o not add to previous draw Performed By: #### 3 490, 73210 #### [facility] [address] [place] [address], [facility] CBC W/DIFFon 08-13-2019 ABS BASOPHILS 0.0 10*3/uL Normal 0.0-0.2 [facility] Comment on above: Order Comment: No: D o not add to previous draw Performed By: #### 5 0103 #### [facility] [address] [place] [address], [facility] ABS IMM GRANS 0.0 10*3/uL Normal 0.0-0.2 [facility] Comment on above: Order Comment: No: D o not add to previous draw Performed By: #### 5 0103 #### [facility] [address] [place] [address], [facility] ABS NEUTROPHILS 4.0 10*3/uL Normal 1.6-7.6 [facility] Comment on above: Order Comment: No: D o not add to previous draw Performed By: #### 5 0103 #### [facility] [address] [place] [address], [facility] Basophils/100 WBC (Bld) 0.5 % Normal 0.0-1.0 [facility] Comment on above: Order Comment: No: D o not add to previous draw Performed By: #### 5 0103 #### [facility] [address] [place] [address], [place] Eosinophils (Bld) [#/Vol] 0.2 10*3/uL Normal 0.0-0.5 [facility] Comment on above: Order Comment: No: D o not add to previous draw Performed By: #### 5 0103 #### [facility] [address] [place] [address], [facility] Eosinophils/100 WBC (Bld) 3.3 % Normal 0.0-6.0 [facility] Comment on above: Order Comment: No: D o not add to previous draw Performed By: #### 5 0103 #### [facility] [address] [place] [id number], [facility] Erythrocyte distribution width (RBC) [Ratio] 12.7 % Normal 11.5-15.0 [facility] Comment on above: Order Comment: No: D o not add to previous draw Performed By: #### 5 0103 #### [facility] [address] [place] [address], [facility] Hematocrit (Bld) [Volume fraction] 33.4 % Low 36.0-45.0 [facility] Comment on above: Order Comment: No: D o not add to previous draw Performed By: #### 5 0103 #### [facility] [address] [place] [address], [facility] Hemoglobin (Bld) [Mass/Vol] 10.5 g/dL Low 12.0-15.0 [facility] Comment on above: Order Comment: No: D o not add to previous draw Performed By: #### 5 0103 #### [facility] [address] [facility] [place] [address], [facility] IMMATURE GRANS 0.2 % Normal 0.0-1.0 The [facility] Comment on above: Order Comment: No: D o not add to previous draw Performed By: #### 5 0103 #### [facility] [address] [place] [address], [facility] Lymphocytes (Bld) [#/Vol] 1.8 10*3/uL Normal 1.2-4.0 [facility] Comment on above: Order Comment: No: D o not add to previous draw Performed By: #### 5 0103 #### [facility] [address] [place] [address], [facility] Lymphocytes/100 WBC (Bld) 28.2 % Normal 20.0-45.0 [facility] Comment on above: Order Comment: No: D o not add to previous draw Performed By: #### 5 0103 #### [facility] [address] [place] [address], [facility] MCH (RBC) [Entitic mass] 28.9 pg Normal 27.0-33.0 [facility] Comment on above: Order Comment: No: D o not add to previous draw Performed By: #### 5 0103 #### [facility] [address] [place] [address], [facility] MCHC (RBC) [Mass/Vol] 31.4 g/dL Low 32.0-35.0 [facility] Comment on above: Order Comment: No: D o not add to previous draw Performed By: #### 5 0103 #### [facility] [address] [place] [address], [facility] MCV (RBC) [Entitic vol] 92.0 fL Normal 82.0-98.0 [facility] Comment on above: Order Comment: No: D o not add to previous draw Performed By: #### 5 0103 #### [facility] [address] [place] [address], [facility] Monocytes (Bld) [#/Vol] 0.4 10*3/uL Normal 0.1-1.0 [facility] Comment on above: Order Comment: No: D o not add to previous draw Performed By: #### 5 0103 #### [facility] [address] [place] [address], [facility] MONOS 6.2 % Normal 5.0-12.0 [facility] Comment on above: Order Comment: No: D o not add to previous draw Performed By: #### 5 0103 #### [facility] [address] [place] [address], [facility] Neutrophils/100 WBC (Bld) 61.6 % Normal 40.0-72.0 [facility] Comment on above: Order Comment: No: D o not add to previous draw Performed By: #### 5 0103 #### [facility] [address] [facility] [address], [facility] Nucleated RBC/100 WBC (Bld) [Ratio] 0 % Normal 0-0 [facility] Comment on above: Order Comment: No: D o not add to previous draw Performed By: #### 5 0103 #### [facility] [address] [facility] [place] [address], [facility] PLAT CNT 382 10*3/uL Normal 150-400 [facility] Comment on above: Order Comment: No: D o not add to previous draw Performed By: #### 5 0103 #### [facility] [address] [facility] [address], [facility] RBC (Bld) [#/Vol] 3.63 10*6/uL Low 3.80-5.00 [facility] Comment on above: Order Comment: No: D o not add to previous draw Performed By: #### 5 0103 #### [facility] [address] [place] [employer]. [address] WBC (Bld) [#/Vol] 6.45 10*3/uL Normal 4.00-10.60 [facility] Comment on above: Order Comment: No: D o not add to previous draw Performed By: #### 5 0103 #### [facility] [address] [facility] [place] [id number], [facility] LIPASE BLOODon 08-13-2019 Lipase [Catalytic activity/Vol] 13 Units/L Normal 11-82 [facility] Comment on above: Performed By: #### [id number] #### [facility] [address] Vital Signs Date Time Vital Sign Value Performing Clinician Facility 01-07-2025 14:15-0400 Body height 170.2 cm Nikki HAQ Work Phone: [facility] 01-07-2025 14:15-0400 Body mass index (BMI) [Ratio] 29.44 kg/m2 Nikki Ayoub PA Work Phone: [facility] 01-07-2025 14:15-0400 Body weight 85.28 kg Nikki Ayoub PA Work Phone: [facility] 01-07-2025 14:15-0400 Diastolic blood pressure 92 mm[Hg] Nikki Ayoub PA Work Phone: [facility] 01-07-2025 14:15-0400 Heart rate 52 /min Nikki Ayoub PA Work Phone: [facility] 01-07-2025 14:15-0400 Respiratory rate 16 /min Nikki Ayoub PA Work Phone: [facility] 01-07-2025 14:15-0400 SaO2% (BldA) [Mass fraction] 98 % Nikki Ayoub PA Work Phone: [facility] 01-07-2025 14:15-0400 Systolic blood pressure 142 mm[Hg] Nikki Ayoub PA Work Phone: [facility] 11-26-2024 10:51-0400 Body height 170.2 cm Nikki Ayoub PA Work Phone: [facility] 11-26-2024 10:51-0400 Body mass index (BMI) [Ratio] 30.23 kg/m2 Nikki Ayoub PA Work Phone: [facility] 11-26-2024 10:51-0400 Body weight 87.54 kg Nikki Ayoub PA Work Phone: [facility] 11-26-2024 10:51-0400 Diastolic blood pressure 84 mm[Hg] Nikki Ayoub PA Work Phone: [facility] 11-26-2024 10:51-0400 Heart rate 77 /min Nikki Ayoub PA Work Phone: [facility] 11-26-2024 10:51-0400 Respiratory rate 16 /min Nikki Ayoub PA Work Phone: [facility] 11-26-2024 10:51-0400 SaO2% (BldA) [Mass fraction] 99 % Nikki Mega PA Work Phone: [facility] 11-26-2024 10:51-0400 Systolic blood pressure 124 mm[Hg] Nikki Ayoub PA Work Phone: [facility] 10-20-2024 18:00-0500 Hourly Rounding Eliezer Paster [facility] 10-20-2024 18:00-0500 Promise to Return Eliezer Paster [facility] 10-20-2024 17:00-0500 Hourly Rounding Eliezer Paster [facility] 10-20-2024 17:00-0500 Promise to Return Eliezer Paster [facility] 10-20-2024 16:00-0500 Hourly Rounding Eliezer Paster [facility] 10-20-2024 16:00-0500 Promise to Return Eliezer Paster [facility] 10-20-2024 13:48-0500 SaO2% (BldA) [Mass fraction] 96 % Eliezer Paster [facility] 10-20-2024 11:46-0500 Heart rate 54 /min Eliezer Paster [facility] 10-20-2024 11:46-0500 SaO2% (BldA) [Mass fraction] 96 % Eliezer Paster [facility] 10-20-2024 11:44-0500 Diastolic blood pressure 78 mm[Hg] Eliezer Paster [facility] 10-20-2024 11:44-0500 Mean blood pressure 95 mm[Hg] Eliezer Paster [facility] 10-20-2024 11:44-0500 Systolic blood pressure 127 mm[Hg] Eliezer Paster [facility] 10-20-2024 11:44-0500 Body temperature 97.7 [degF] Eliezer Paster [facility] 10-20-2024 10:24-0500 Diastolic blood pressure 80 mm[Hg] Eliezer Paster [facility] 10-20-2024 10:24-0500 Heart rate 77 /min Eliezer Paster [facility] 10-20-2024 10:24-0500 Systolic blood pressure 129 mm[Hg] Eliezer Paster [facility] 10-20-2024 07:55-0500 Heart rate 49 /min Eliezer Paster [facility] 10-20-2024 07:55-0500 SaO2% (BldA) [Mass fraction] 97 % Eliezer Paster [facility] 10-20-2024 07:53-0500 Mean blood pressure 97 mm[Hg] Eliezer Paster [facility] 10-20-2024 07:53-0500 Body temperature 97.52 [degF] Eliezer Paster [facility] 10-20-2024 04:00-0500 gluc 93 mg/dL Eliezer Paster [facility] 10-20-2024 03:57-0500 Heart rate 54 /min Eliezer Paster [facility] 10-20-2024 03:56-0500 Mean blood pressure 80 mm[Hg] Eliezer Paster [facility] 10-20-2024 03:56-0500 Body temperature 98.06 [degF] Eliezer Paster [facility] 10-20-2024 03:12-0500 Heart rate 49 /min Eliezer Paster [facility] 10-20-2024 03:12-0500 Mean blood pressure 98 mm[Hg] Eliezer Paster [facility] 10-20-2024 03:12-0500 Respiratory rate 16 /min Eliezer Paster [facility] 10-20-2024 01:00-0500 Heart rate 58 /min Eliezer Paster [facility] 10-20-2024 01:00-0500 Mean blood pressure 81 mm[Hg] Eliezer Paster [facility] 10-20-2024 00:00-0500 gluc 93 mg/dL Eliezer Paster [facility] 10-19-2024 23:00-0500 Heart rate 61 /min Eliezer Paster [facility] 10-19-2024 23:00-0500 Mean blood pressure 79 mm[Hg] Eliezer Paster [facility] 10-19-2024 20:30-0500 Body temperature 98.06 [degF] Eliezer Lorenzo [facility] Comment on above: Result Comment: Patient arrives to room 212. Oriented to room. 10-19-2024 20:30-0500 Respiratory rate 16 /min Eliezer Lorenzo [facility] 10-19-2024 19:00-0500 Respiratory rate 22 /min Eliezer Lorenzo [facility] 10-19-2024 17:21-0500 Body temperature 98.42 [degF] Eliezer Lorenzo [facility] 08-30-2024 07:25-0500 Body temperature 97.9 [degF] [facility] 08-30-2024 07:25-0500 Diastolic blood pressure 89 mm[Hg] Pete Otto MD Work Phone: [facility] [employer] 08-30-2024 07:25-0500 Heart rate 61 /min Pete Otto MD [facility] 08-30-2024 07:25-0500 Respiratory rate 16 /min Pete Otto MD [facility] 08-30-2024 07:25-0500 SaO2% (BldA) [Mass fraction] 96 % Pete Otto MD Work Phone: [facility] [employer] 08-30-2024 07:25-0500 Systolic blood pressure 144 mm[Hg] Pete Otto MD Work Phone: [facility] [employer] 08-28-2024 16:30-0500 Body height 170.2 cm Pete Otto MD Work Phone: [facility] [employer] 08-28-2024 16:30-0500 Body mass index (BMI) [Ratio] 28.82 kg/m2 Pete Otto MD Work Phone: [employer] 08-28-2024 16:30-0500 Body weight 83.5 kg Pete Otto MD Work Phone: [facility] [employer] 08-17-2024 13:40-0500 Body temperature 97.7 [degF] Jose Miguel Lucero MD Work Phone: [employer] 08-17-2024 13:40-0500 Diastolic blood pressure 89 mm[Hg] Jose Miguel Lucero MD Work Phone: [employer] 08-17-2024 13:40-0500 Heart rate 68 /min Jose Miguel Lucero MD Work Phone: [facility] [employer] 08-17-2024 13:40-0500 Respiratory rate 12 /min Jose Miguel Lucero MD Work Phone: [employer] 08-17-2024 13:40-0500 SaO2% (BldA) [Mass fraction] 99 % Jose Miguel Lucero MD Work Phone: [employer] 08-17-2024 13:40-0500 Systolic blood pressure 159 mm[Hg] Jose Miguel Lucero MD Work Phone: [facility] [employer] 08-17-2024 11:29-0500 Body height 170.2 cm Jose Miguel Lucero MD Work Phone: [employer] 08-17-2024 11:29-0500 Body mass index (BMI) [Ratio] 29.75 kg/m2 Jose Miguel Lucero MD Work Phone: [facility] [employer] 08-17-2024 11:29-0500 Body weight 86.18 kg Jose Miguel Lucero MD Work Phone: [facility] [employer] 07-13-2024 11:29-0500 Body height 170.2 cm Kulwant Hodge MD Work Phone: [facility] 07-13-2024 11:29-0500 Body mass index (BMI) [Ratio] 29.44 kg/m2 Kulwant Hodge MD Work Phone: [facility] 07-13-2024 11:29-0500 Body weight 85.28 kg Kulwant Hodge MD Work Phone: [facility] 07-13-2024 11:29-0500 Diastolic blood pressure 70 mm[Hg] Kulwant Hodge MD Work Phone: [facility] 07-13-2024 11:29-0500 Heart rate 68 /min Kulwant Hodge MD Work Phone: [facility] Comment on above: 02 SAT 96% 07-13-2024 11:29-0500 Respiratory rate 16 /min Kulwant Hodge MD Work Phone: [facility] 07-13-2024 11:29-0500 Systolic blood pressure 116 mm[Hg] Kulwant Hodge MD Work Phone: [facility] 06-20-2024 11:08-0400 Body height 170.2 cm Kulwant Hodge MD Work Phone: [facility] 06-20-2024 11:08-0400 Body mass index (BMI) [Ratio] 28.98 kg/m2 Kulwant Hodge MD Work Phone: [facility] 06-20-2024 11:08-0400 Body weight 83.92 kg Kulwant Hodge MD Work Phone: [facility] 06-20-2024 11:08-0400 Diastolic blood pressure 92 mm[Hg] Kulwant Hodge MD Work Phone: [facility] 06-20-2024 11:08-0400 Heart rate 62 /min Kulwant Hodge MD Work Phone: [facility] 06-20-2024 11:08-0400 Respiratory rate 16 /min Kulwant Hodge MD Work Phone: [facility] 06-20-2024 11:08-0400 Systolic blood pressure 140 mm[Hg] Kulwant Hodge MD Work Phone: [facility] 05-11-2024 10:50-0400 Diastolic blood pressure 80 mm[Hg] MAINTENANCE OPERATOR-C Judi Ugaldemer Work Phone: [facility] 05-11-2024 10:50-0400 Heart rate 67 /min MAINTENANCE OPERATOR-C Judi Regina Work Phone: [facility] 05-11-2024 10:50-0400 Respiratory rate 16 /min MAINTENANCE OPERATOR-C Judi Regina Work Phone: [facility] 05-11-2024 10:50-0400 SaO2% (BldA) [Mass fraction] 100 % MAINTENANCE OPERATOR-C Judijose manuel Ugaldemer Work Phone: [facility] 05-11-2024 10:50-0400 Systolic blood pressure 130 mm[Hg] MAINTENANCE OPERATOR-C Judi Regina Work Phone: [facility] 05-11-2024 08:23-0400 Body height 170.18 cm MAINTENANCE OPERATOR-C Judi Regina Work Phone: [facility] 05-11-2024 08:23-0400 Body weight 81.64 kg MAINTENANCE OPERATOR-C Judi Regina Work Phone: [facility] 04-26-2024 08:27-0400 Body height 170.18 cm [facility] 04-26-2024 08:27-0400 Body mass index (BMI) [Ratio] 28.5 kg/m2 [facility] 04-26-2024 08:27-0400 Body weight 82.55 kg [facility] 04-26-2024 08:27-0400 Diastolic blood pressure 82 mm[Hg] [facility] 04-26-2024 08:27-0400 Heart rate 59 /min [facility] 04-26-2024 08:27-0400 Systolic blood pressure 132 mm[Hg] [facility] 02-16-2024 09:03-0400 Blood Pressure Location Yolanda Orzech [facility] 02-16-2024 09:03-0400 Body temperature 97.7 [degF] Yolanda Orzech [facility] 02-16-2024 09:03-0400 Diastolic blood pressure 84 mm[Hg] Yolanda Orzech [facility] 02-16-2024 09:03-0400 Heart rate 78 /min Yolanda Orzech [facility] 02-16-2024 09:03-0400 Systolic blood pressure 128 mm[Hg] Yolanda Orzech [facility] 07-22-2023 13:19-0500 Body height 170.2 cm Americo Katia ALBRECHT Work Phone: [facility] 07-22-2023 13:19-0500 Body weight 83.[address] Work Phone: [facility] 07-14-2023 11:40-0500 Diastolic blood pressure 95 mm[Hg] Marques Bradley MD Work Phone: [facility] 07-14-2023 11:40-0500 Heart rate 56 /min Marques Bradley MD Work Phone: [facility] 07-14-2023 11:40-0500 Respiratory rate 16 /min Marques Bradley MD Work Phone: [facility] 07-14-2023 11:40-0500 SaO2% (BldA) [Mass fraction] 97 % Marques Bradley MD Work Phone: [facility] 07-14-2023 11:40-0500 Systolic blood pressure 158 mm[Hg] Marques Bradley MD Work Phone: [facility] 07-14-2023 11:10-0500 Body temperature 97.2 [degF] Marques Bradley MD Work Phone: [facility] 07-14-2023 08:34-0500 Body height 170.2 cm Marques Bradley MD Work Phone: [facility] 07-14-2023 08:34-0500 Body weight 88 kg Marques Bradley MD Work Phone: [facility] 04-21-2023 09:30-0400 Body height 170.18 cm Renny Omalley Other [employer] [facility] 04-21-2023 09:30-0400 Body mass index (BMI) [Ratio] 31.21 kg/m2 Renny Najeraormack Other [employer] [facility] 04-21-2023 09:30-0400 Body weight 90.4 kg Renny Omalley Other [employer] [facility] 04-21-2023 09:30-0400 Diastolic blood pressure 78 mm[Hg] Renny Omalley Other [employer] [facility] 04-21-2023 09:30-0400 Systolic blood pressure 130 mm[Hg] Renny Lyssa Other [employer] [facility] 03-23-2023 07:33-0400 Diastolic blood pressure 80 mm[Hg] MAINTENANCE OPERATOR-C Judijose manuel Ugaldemer Work Phone: [facility] 03-23-2023 07:33-0400 Heart rate 81 /min MAINTENANCE OPERATOR-C Judi Regina Work Phone: [facility] 03-23-2023 07:33-0400 Respiratory rate 14 /min MAINTENANCE OPERATOR-C Judi Regina Work Phone: [facility] 03-23-2023 07:33-0400 SaO2% (BldA) [Mass fraction] 95 % MAINTENANCE OPERATOR-C Judi Regina Work Phone: [facility] 03-23-2023 07:33-0400 Systolic blood pressure 171 mm[Hg] MAINTENANCE OPERATOR-C Judi Regina Work Phone: [facility] 03-23-2023 06:20-0400 Body height 170.18 cm MAINTENANCE OPERATOR-C Judijose manuel Ugaldemer Work Phone: [facility] 03-23-2023 06:20-0400 Body temperature 97.4 [degF] MAINTENANCE OPERATOR-C Judi Regina Work Phone: [facility] 03-23-2023 06:20-0400 Body weight 90 kg MAINTENANCE OPERATOR-C Judi Regina Work Phone: [facility] 02-19-2023 00:53-0400 Body temperature 96.98 [degF] Kaylinn Dokken [facility] 02-19-2023 00:53-0400 Diastolic blood pressure 99 mm[Hg] Kaylinn Dokken [facility] 02-19-2023 00:53-0400 Heart rate 75 /min Kaylinn Dokken [facility] 02-19-2023 00:53-0400 Respiratory rate 16 /min Kaylinn Dokken [facility] 02-19-2023 00:53-0400 SaO2% (BldA) [Mass fraction] 98 % Kaylinn Dokken [facility] 02-19-2023 00:53-0400 Systolic blood pressure 153 mm[Hg] Kaylinn Dokken [facility] 02-15-2023 10:33-0400 Diastolic blood pressure 89 mm[Hg] MAINTENANCE OPERATOR-C Judi Regina Work Phone: [facility] 02-15-2023 10:33-0400 SaO2% (BldA) [Mass fraction] 100 % MAINTENANCE OPERATOR-C Judi Regina Work Phone: [facility] 02-15-2023 10:33-0400 Systolic blood pressure 149 mm[Hg] MAINTENANCE OPERATOR-C Judi Regina Work Phone: [facility] 02-15-2023 10:00-0400 Heart rate 83 /min MAINTENANCE OPERATOR-C Judi Regina Work Phone: [facility] 02-15-2023 10:00-0400 Respiratory rate 16 /min MAINTENANCE OPERATOR-C Judi Regina Work Phone: [facility] 02-15-2023 08:06-0400 Body height 170.18 cm MAINTENANCE OPERATOR-C Judi Regina Work Phone: [facility] 02-15-2023 08:06-0400 Body temperature 97.6 [degF] MAINTENANCE OPERATOR-C Judi Regina Work Phone: [facility] 02-15-2023 08:06-0400 Body weight 89.2 kg MAINTENANCE OPERATOR-C Judi Regina Work Phone: [facility] 10-26-2022 08:03-0500 Diastolic blood pressure 87 mm[Hg] MAINTENANCE OPERATOR-C Judi Regina Work Phone: [facility] 10-26-2022 08:03-0500 Heart rate 70 /min MAINTENANCE OPERATOR-C Judi Regina Work Phone: [facility] 10-26-2022 08:03-0500 Respiratory rate 18 /min MAINTENANCE OPERATOR-C Judi Regina Work Phone: [facility] 10-26-2022 08:03-0500 SaO2% (BldA) [Mass fraction] 98 % MAINTENANCE OPERATOR-C Judi Ergina Work Phone: [facility] 10-26-2022 08:03-0500 Systolic blood pressure 161 mm[Hg] MAINTENANCE OPERATOR-C Judi Regina Work Phone: [facility] 10-26-2022 06:17-0500 Body height 170.18 cm MAINTENANCE OPERATOR-C Judi Youssef Work Phone: [facility] 10-26-2022 06:17-0500 Body temperature 97.2 [degF] MAINTENANCE OPERATOR-C Judi Youssef Work Phone: [facility] 10-26-2022 06:17-0500 Body weight 88.9 kg MAINTENANCE OPERATOR-C Judi Youssef Work Phone: [facility] 07-22-2022 14:34-0500 Diastolic blood pressure 83 mm[Hg] Ospina SALAM [facility] 07-22-2022 14:34-0500 Mean blood pressure 101 mm[Hg] Ospina SALAM [facility] 07-22-2022 14:34-0500 Systolic blood pressure 136 mm[Hg] Ospina SALAM [facility] 07-22-2022 14:30-0500 Blood Pressure Location Ospina SALAM [facility] 07-22-2022 14:30-0500 Diastolic blood pressure 89 mm[Hg] Ospina SALAM [facility] 07-22-2022 14:30-0500 Heart rate 62 /min Ospina SALAM [facility] 07-22-2022 14:30-0500 Respiratory rate 16 /min Ospina SALAM [facility] 07-22-2022 14:30-0500 SaO2% (BldA) [Mass fraction] 98 % Ospina SALAM [facility] 07-22-2022 14:30-0500 Systolic blood pressure 141 mm[Hg] Ospina SALAM [facility] 04-14-2022 14:50-0400 Blood Pressure Location Moniquejuan luis ReddyJimmy [facility] 04-14-2022 14:50-0400 Body temperature 97.16 [degF] Monique Jimmy [facility] 04-14-2022 14:50-0400 Diastolic blood pressure 86 mm[Hg] Monique Jimmy [facility] 04-14-2022 14:50-0400 Heart rate 72 /min Moniquejuan luis ReddyJimmy [facility] 04-14-2022 14:50-0400 SaO2% (BldA) [Mass fraction] 97 % Moniquejuan luis ReddyJimmy [facility] 04-14-2022 14:50-0400 Systolic blood pressure 131 mm[Hg] Moniquejuan luis ReddyJimmy [facility] 01-28-2022 13:36-0400 Blood Pressure Location Moniquejuan luis ReddyJimmy [facility] 01-28-2022 13:36-0400 Body temperature 97.52 [degF] Monique Jimmy [facility] 01-28-2022 13:36-0400 Diastolic blood pressure 85 mm[Hg] Monique Jimmy [facility] 01-28-2022 13:36-0400 Heart rate 73 /min Monique Jimmy [facility] 01-28-2022 13:36-0400 SaO2% (BldA) [Mass fraction] 96 % Monique Reddymetz [facility] 01-28-2022 13:36-0400 Systolic blood pressure 122 mm[Hg] Monique Castañedaz [facility] 01-11-2022 10:15-0400 Blood Pressure Location Ospina SALAM [facility] 01-11-2022 10:15-0400 Diastolic blood pressure 106 mm[Hg] Ospina SALAM [facility] 01-11-2022 10:15-0400 Heart rate 70 /min Ospina SALAM [facility] 01-11-2022 10:15-0400 Respiratory rate 28 /min Ospina SALAM [facility] 01-11-2022 10:15-0400 SaO2% (BldA) [Mass fraction] 99 % Ospina SALAM [facility] 01-11-2022 10:15-0400 Systolic blood pressure 137 mm[Hg] Ospina SALAM [facility] 01-11-2022 10:05-0400 Blood Pressure Location Ospina SALAM [facility] 01-11-2022 10:05-0400 Diastolic blood pressure 74 mm[Hg] Ospina SALAM [facility] 01-11-2022 10:05-0400 Heart rate 67 /min Ospina SALAM [facility] 01-11-2022 10:05-0400 Respiratory rate 14 /min Ospina SALAM [facility] 01-11-2022 10:05-0400 SaO2% (BldA) [Mass fraction] 97 % Ospina SALAM [facility] 01-11-2022 10:05-0400 Systolic blood pressure 128 mm[Hg] Ospina SALAM [facility] 01-11-2022 10:00-0400 Blood Pressure Location Ospina SALAM [facility] 01-11-2022 10:00-0400 Diastolic blood pressure 79 mm[Hg] Ospina SALAM [facility] 01-11-2022 10:00-0400 Heart rate 66 /min Ospina SALAM [facility] 01-11-2022 10:00-0400 Respiratory rate 16 /min Ospina SALAM [facility] 01-11-2022 10:00-0400 SaO2% (BldA) [Mass fraction] 98 % Ospina SALAM [facility] 01-11-2022 10:00-0400 Systolic blood pressure 134 mm[Hg] Ospina SALAM [facility] 01-11-2022 09:50-0400 Body temperature 97.52 [degF] Ospina SALAM [facility] 01-11-2022 09:45-0400 Respiratory rate 15 /min Ospina SALAM [facility] 01-11-2022 09:18-0400 Body temperature 97.34 [degF] Ospina SALAM [facility] 01-11-2022 09:18-0400 Respiratory rate 20 /min Anai FORBES [facility] Encounters Encounter Date Encounter Type Care [...] [facility] Start: 12-28-2024 End: 12-28-2024 ambulatory [facility] Start: 12-18-2024 End: 12-18-2024 ambulatory Nicanor Perez [facility] Work Phone: Start: 12-18-2024 End: 12-18-2024 Departed Referred Nicanor Perez MD Work Phone: [facility] Start: 11-26-2024 End: 11-26-2024 Office outpatient visit 25 minutes Nikki HAQ Work Phone: [facility] Comment on above: Seizure (CMS/HCC) (P rimary Dx); History of obstructive sleep apnea; Migraine without aura and without status migrainosus, not intractable (CMS/HCC) Start: 11-26-2024 End: 11-26-2024 ambulatory NIKKI AYOUB Not Available Start: 10-19-2024 End: 10-20-2024 ambulatory Eliezer Lorenzo Facility:[facility] Start: 10-19-2024 Emergency department patient visit Yolanda Lou Facility:[facility] Start: 10-19-2024 End: 10-20-2024 Observation Eliezer Lorenzo [facility] Start: 09-17-2024 End: 09-17-2024 ambulatory [facility] Start: 08-28-2024 End: 08-30-2024 Evaluation and management of inpatient Pete Otto MD Work Phone: [facility] Comment on above: Ileus (HCC) (Primary Dx); Generalized abdominal pain; Hypokalemia Start: 08-17-2024 End: 08-17-2024 ambulatory [facility] Start: 08-17-2024 End: 08-17-2024 Subsequent hospital visit by physician Jose Miguel Lucero MD Work Phone: [facility] Comment on above: Other dysphagia ([employer] alfonzo Dx) Start: 07-13-2024 End: 07-13-2024 Bamboo flowsnidhi Hodge MD Work Phone: [facility] Start: 07-13-2024 End: 07-13-2024 Bammariumo flowsnidhi Hodge MD Work Phone: [facility] Start: 07-13-2024 End: 07-13-2024 Office outpatient visit 25 minutes Kulwant Hodge MD Work Phone: [facility] ENDOCRINOLOGY Comment on above: Hypoglycemia Start: 07-13-2024 End: 07-13-2024 ambulatory KULWANT HODGE Not Available Start: 06-20-2024 End: 06-20-2024 Bamboo flowsnidhi Hodge MD Work Phone: [facility] Start: 06-20-2024 End: 06-20-2024 Bammariumo kati Hodge MD Work Phone: [facility] Start: 06-20-2024 End: 06-20-2024 ambulatory KULWANT HODGE Not Available Start: 06-20-2024 End: 06-20-2024 Office outpatient new 45 minutes Kulwant Hodge MD Work Phone: [facility] Comment on above: Hypoglycemia (Primar y Dx); Encounter for dietary consultation Start: 06-19-2024 End: 06-19-2024 Patient encounter procedure MAINTENANCE OPERATOR-C Judi Youssef Work Phone: [facility] [place] Work Phone: Start: 06-19-2024 End: 06-19-2024 ambulatory MAINTENANCE OPERATOR-C Judi Youssef Work Phone: [facility] Work Phone: Start: 06-07-2024 End: 06-07-2024 ambulatory Yolanda X Orzech Facility:[facility] Start: 06-07-2024 End: 06-07-2024 Patient encounter procedure Yolanda X Orzech [facility] Start: 05-14-2024 End: 05-14-2024 ambulatory [facility] Start: 05-11-2024 Non-patient / Non-visit MAINTENANCE OPERATOR-C Cesia Youssef Work Phone: [facility] Work Phone: Start: 05-11-2024 End: 05-11-2024 Admission to same day surgery center MAINTENANCE OPERATOR-C Judi Youssef Work Phone: [facility] Work Phone: Start: 05-11-2024 End: 05-11-2024 ambulatory MAINTENANCE OPERATOR-C Judi Youssef Work Phone: [facility] Work Phone: Start: 04-26-2024 End: 04-26-2024 ambulatory [facility] Work Phone: Start: 04-26-2024 End: 04-26-2024 Patient encounter procedure [facility] Work Phone: Start: 04-13-2024 Non-patient / Non-visit LINDA-Paula Youssef Work Phone: [facility] Work Phone: Start: 03-19-2024 End: 03-19-2024 ambulatory [facility] Start: 02-16-2024 End: 02-16-2024 ambulatory Yolanda X Orzech Facility:[facility] Start: 02-16-2024 End: 02-16-2024 Lab Drop off Yolanda X Orzech [facility] Start: 02-16-2024 End: 02-16-2024 ambulatory Yolanda X Orzech Facility:[facility] Start: 02-16-2024 End: 02-16-2024 Patient encounter procedure Yolanda X Orzech [facility] Start: 02-15-2024 End: 02-15-2024 ambulatory [facility] Start: 12-01-2023 ambulatory [facility] Start: 08-25-2023 End: 08-25-[address] [facility] Facility:[facility] Start: 07-29-2023 Orders Only Evelyn Black RN Gen eral Surgery Comment on above: Gastroparesis (Prima ry Dx) Start: 07-22-2023 End: 07-22-2023 ambulatory MARQUES BRADLEY Facility:[facility] Start: 07-22-2023 Telephone encounter Evelyn Black RN General Surgery Start: 07-22-2023 End: 07-22-2023 Nutrition therapy Americo Montalvo RD Work Phone: General Surgery Comment on above: Gastroparesis (Prima ry Dx); Malnutrition of moderate degree (HCC); Gastro-esophageal reflux disease without esophagitis; Overweight (BMI 25.0-29.9); Dietary counseling and surveillance Start: 07-22-2023 End: 07-22-2023 Telemedicine consultation with patient Americo Montalvo RD Work Phone: [facility] Start: 07-14-2023 End: 07-14-2023 ambulatory MARQUES BRADLEY Facility:[facility] Start: 07-14-2023 End: 07-14-2023 Subsequent hospital visit by physician Marques Bradley MD Work Phone: Gastroenterology Comment on above: Dysphagia, unspecifi ed type [R13.10] Start: 07-13-2023 End: 07-13-2023 ambulatory MARQUES BRADLEY Facility:[facility] Start: 05-27-2023 Telephone encounter Evelyn Black RN General Surgery Comment on above: Results Start: 05-26-2023 End: 05-26-2023 ambulatory MARQUES BRADLEY Facility:[facility] Start: 05-25-2023 End: 05-25-[address] [facility] Facility:[facility] Start: 05-25-2023 End: 05-25-2023 Nursing evaluation of patient and report Nurse Gi [facility] 2 Work Phone: Gastroenterology Comment on above: Nausea Start: 05-16-2023 Orders Only Evelyn Black RN Gen eral Surgery Comment on above: Nausea (Primary Dx); Dysphagia, unspecified type Start: 05-06-2023 End: 05-07-2023 ambulatory MARQUES BRADLEY Facility:[facility] Start: 05-02-2023 Telephone encounter Evelyn Black RN General Surgery Start: 04-26-2023 Telephone encounter Evelyn Black RN General Surgery Start: 04-21-2023 End: 04-21-2023 ambulatory Renny Omalley Other [facility] Other Start: 04-21-2023 Office outpatient vi sit 15 minutes Renny TOUSSAINT Gastroenterology Start: 04-18-2023 Telephone encounter Evelyn Black RN General Surgery 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 Start: 04-07-2023 Telephone encounter Guillermo Martinez DO Work Phone: Gastroenterology Comment on above: Appointment Start: 04-05-2023 End: 04-05-2023 ambulatory Imad Asaad Other [facility] Other Start: 04-05-2023 Telephone encounter Imad Asaad [facility] Start: 03-29-2023 ambulatory Facility:U Start: 03-26-2023 ambulatory Facility:[id number] Start: 03-26-2023 ambulatory Facility:[id number] Start: 03-24-2023 End: 03-24-2023 ambulatory Imad Asaad Other [facility] Other Start: 03-24-2023 Telephone encounter Imad Asaad [facility] Start: 03-23-2023 End: 03-23-2023 Emergency department patient visit DONI Yuossef Work Phone: [facility] Work Phone: Start: 03-22-2023 End: 03-22-2023 ambulatory Imad Asaad Other [facility] Other Start: 03-22-2023 Telephone encounter Imad Asaad [facility] Start: 03-09-2023 End: 03-09-2023 ambulatory Imad Asaad Other [facility] Other Start: 03-09-2023 Telephone encounter Imad Asaad [facility] Start: 03-01-2023 End: 03-01-2023 ambulatory Imad Asaad Other [facility] Other Start: 03-01-2023 Telephone encounter Imad Asaad [facility] Start: 02-19-2023 End: 02-19-2023 Emergency department patient visit Zabrina Patton [facility] Start: 02-15-2023 End: 02-15-2023 Emergency department patient visit MAINTENANCE OPERATOR-C Judi Youssef Work Phone: [facility] Work Phone: Start: 11-30-2022 End: 12-01-2022 ambulatory JUDI YOUSSEF Facility:[facility] Start: 11-27-2022 End: 11-28-2022 ambulatory JUDI YOUSSEF Facility:[facility] Start: 11-26-2022 End: 11-26-2022 ambulatory Imad Asaad Other [facility] Other Start: 11-26-2022 Telephone encounter Imad Asaad [facility] Start: 11-04-2022 End: 11-04-2022 Admission to same day surgery center MAINTENANCE OPERATOR-C Judi Youssef Work Phone: [facility] Scan [facility] [place] Work Phone: Start: 11-04-2022 End: 11-04-2022 ambulatory 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 Facility:[facility] Start: 09-14-2022 End: 09-14-2022 ambulatory EUN WILSON . Facility:[facility] Start: 09-07-2022 End: 09-07-2022 ambulatory Imad Asaad Other [facility] Other Start: 09-07-2022 Telephone encounter Imad Asaad [facility] Start: 09-06-2022 End: 09-07-2022 ambulatory JUDI YOUSSEF Facility:[facility] Start: 08-20-2022 End: 08-20-2022 ambulatory BALTAZAR GEORGES . Facility:[facility] Start: 08-17-2022 End: 08-18-2022 ambulatory JUDI YOUSSEF Facility:[facility] Start: 08-11-2022 End: 08-12-2022 ambulatory JUDI YOUSSEF Facility:[facility] Start: 08-08-2022 End: 08-08-2022 ambulatory KATHRIN RAJIV Facility:[facility] Start: 07-22-2022 End: 07-22-2022 Patient encounter procedure Anai FORBES [facility] Start: 07-21-2022 End: 07-21-[address] NORA WINN Facility:[facility] Start: 07-15-2022 ambulatory JUDI YOUSSEF Facility: [facility] Start: 07-12-2022 Encounter for genera l adult medical examination without abnormal findings JUDI YOUSSEF [facility] Start: 07-08-2022 End: 07-09-2022 ambulatory [...] End: 04-29-2022 Lab Drop off Anai FORBES [facility] Start: 04-14-2022 End: 04-14-2022 Patient encounter procedure Monique Marquez [facility] Start: 03-27-2022 End: 03-30-2022 Evaluation and management of inpatient SHAIKH Juan Luis DAVIS Facility:[facility] Start: 03-01-2022 End: 03-01-2022 Patient encounter procedure Monique Marquez [facility] Start: 02-02-2022 End: 02-02-2022 ambulatory BALTAZAR FAB . Facility:[facility] Start: 01-28-2022 End: 01-28-2022 Patient encounter procedure Monique Marquez [facility] Start: 01-11-2022 End: 01-11-2022 Patient encounter procedure Anai FORBES [facility] Start: 12-24-2021 End: 12-24-2021 Patient encounter procedure JHOANA MELGOZA [facility] [place] Start: 08-13-2019 End: 08-16-2019 Evaluation and [...] Hodge MD Work Phone: Start: 05-11-2024 Esophagogastroduodenoscopy MAINTENANCE OPERATOR-Paula morales Work Phone: Start: 07-14-2023 Esophagoscp rig transoral hypopharynx crv esoph Evelyn Black RN Start: 05-25-2023 Esophageal motility study w/interp&rpt Evelyn Black RN Start: 03-23-2023 Computed tomography of abdomen and pelvis with contrast MAINTENANCE OPERATOR-Paula Youssef Work Phone: Start: 02-15-2023 Computed tomography of abdomen and pelvis with contrast MAINTENANCE OPERATOR-C Judi Youssef Work Phone: Start: 11-04-2022 CT of small intestine MAINTENANCE OPERATOR-C Judi Youssef Work Phone: Start: 10-26-2022 Computed tomography of abdomen and pelvis with contrast MAINTENANCE OPERATOR-C Judi Youssef Work Phone: Start: 01-11-2022 Esophagogastroduodenoscopy Anai FORBES Start: 05-13-2021 Esophagogastroduodenoscopy JHOANA Vázquez Start: 09-30-2020 Esophagogastroduodenoscopy JHOANA BACAR Gurpreet Start: 03-13-2020 Colonoscopy Kulwant Hodge MD Work Phone: Start: 03-13-2020 Colonoscopy JHOANA MELGOZA Start: 01-30-2020 Esophagogastroduodenoscopy JHOANA BACAR Gurpreet Start: 08-15-2019 FLUOROSCOPY OF UPPER GI AND SMALL BOWEL USING OTHER CONTRAST ORESTES CONDON Start: 05-17-2019 Colonoscopy JHOANA MELGOZA Start: 05-17-2019 Esophagogastroduodenoscopy JHOANA BACAR Y Start: 03-02-2019 Hernia surgical mesh (physical object) JHOANA MELGOZA Comment on above: Dr. Mortensen in [place]. Hernia repair JHOANA MELGOZA Hysterectomy JHOANA MELGOZA Plan of Treatment Date Care Activity Detail Author Start: 03-13-2030 Screening for malignant neoplasm of colon [facility] Start: 05-06-2025 Influenza vaccination Influenza Vaccine (Season Ended) [facility] Start: 04-01-2025 End: 04-01-2025 Patient encounter procedure 04/01/2025 9:40 AM EDT Office Visit [facility] [address] [place] [id number] Eileen Fisher, MAINTENANCE OPERATOR [address] [facility] Start: 02-07-2025 End: 02-07-2025 Clinical Support 02/07/2025 9:45 AM EDT Clini neeta Support [facility] [address] [place] [phone] [facility] Start: 01-07-2025 End: 01-07-2025 Patient encounter procedure [facility] Comment on above: Arrived Start: 01-07-2025 End: 01-07-2026 CBC W Auto Differential panel - Blood CBC auto differential Lab Routine Seizure ([facility]) Expected: 01/07/2025 (Approximate), Expires: 01/07/2026 [facility] Comment on above: Expected: 01/07/2025 (Approximate), Expi res: 01/07/2026 Start: 01-07-2025 End: 01-07-2026 Comprehensive metabolic 2000 panel - Serum or Plasma Comprehensive metabolic panel Lab Routine Seizure ([facility]/HCC) Expected: 01/07/2025 (Approximate), Expires: 01/07/2026 [facility] Work Phone: Comment on above: Expected: 01/07/2025 (Approximate), Expi res: 01/07/2026 Start: 01-07-2025 End: 01-07-2026 Levetiracetam level Levetiracetam level Lab Rout ine Seizure ([facility]/HCC) Expected: 01/07/2025 (Approximate), Expires: 01/07/2026 [facility] Comment on above: Expected: 01/07/2025 (Approximate), Expi res: 01/07/2026 Start: 01-07-2025 End: 01-07-2026 Vestibular test (VNG) Vestibular test (VNG) Neurol ogy Routine Dizziness Expected: 01/07/2025 (Approximate), Expires: 01/07/2026 [facility] Comment on above: Expected: 01/07/2025 (Approximate), Expi res: 01/07/2026 Start: 12-18-2024 Bacteria identified in Urine by Culture Urine Culture [facility] Start: 12-18-2024 Urine culture [facility] Start: 11-29-2024 End: 11-29-2024 Patient encounter procedure 11/29/2024 11:00 AM EDT Office Visit [facility] [address] [place] [phone] Kulwant Hodge MD [address] [place] [address] [facility] Start: 11-26-2024 End: 11-26-2025 Polysomnography [facility] Routine History of obstructive sleep apnea Migraine without aura and without status migrainosus, not intractable (CMS/HCC) Expected: 11/26/2024 (Approximate), Expires: 11/26/2025 [facility] Work Phone: Comment on above: Expected: 11/26/2024 (Approximate), Expi res: 11/26/2025 Start: 08-31-2024 End: 08-30-2025 Basic metabolic 2000 panel - Serum or Plasma Basic Metabolic Panel Lab Routine Ileus ([facility]) Generalized abdominal pain Hypokalemia Expected: 08/31/2024, Expires: 08/30/2025 [facility] Comment on above: Expected: 08/31/2024, Expires: Start: 08-31-2024 End: 08-30-2025 Magnesium [Mass/volume] in Serum or Plasma Magnesium Lab Routine Ileus (HCC) Generalized abdominal pain Hypokalemia Expected: 08/31/2024, Expires: 08/30/2025 [facility] Comment on above: Expected: 08/31/2024, Expires: Start: 08-17-2024 End: 08-17-2025 Radiologic exam swallow function contrast study FL MODIFIED BARIUM SWALLOW W VIDEO Imaging Routine Other dysphagia Expected: 08/17/2024, Expires: 08/17/2025 [facility] Comment on above: Expected: 08/17/2024, Expires: Start: 08-17-2024 End: 08-17-2024 Egd transoral biopsy single/multiple ESOPHAGOGASTRODUODENOSCOPY BIOPSY Other dysphagia 08/17/2024 12:58 PM [facility] Start: 07-13-2024 End: 07-13-2024 Patient encounter procedure [facility] Comment on above: Arrived Start: 06-22-2024 Shingles vaccine (2 of 2) Shingles vaccine (2 of 2) [facility] Start: 06-20-2024 End: 06-20-2025 Basic metabolic 1998 panel - Serum or Plasma Basic metabolic panel Lab Routine Hypoglycemia Expected: 06/20/2024 (Approximate), Expires: 06/20/2025 [facility] Comment on above: Expected: 06/20/2024 (Approximate), Expi res: 06/20/2025 Start: 06-20-2024 End: 06-20-2025 C peptide [Mass/volume] in Serum or Plasma --fasting C PEPTIDE FASTING Lab Routine Hypoglycemia Expected: 06/20/2024 (Approximate), Expires: 06/20/2025 [facility] Work Phone: Comment on above: Expected: 06/20/2024 (Approximate), Expi res: 06/20/2025 Start: 06-20-2024 End: 06-20-2025 Hepatic function 2000 panel - Serum or Plasma Hepatic function panel Lab Routine Hypoglycemia Expected: 06/20/2024 (Approximate), Expires: 06/20/2025 [facility] Comment on above: Expected: 06/20/2024 (Approximate), Expi res: 06/20/2025 Start: 06-20-2024 End: 06-20-2025 Insulin, fasting Insulin, fasting Lab Routine Hypoglycemia Expected: 06/20/2024 (Approximate), Expires: 06/20/2025 [facility] Comment on above: Expected: 06/20/2024 (Approximate), Expi res: 06/20/2025 Start: 06-20-2024 End: 06-20-2025 Insulin-like growth factor 2 Insulin-like growth factor 2 Lab Routine Hypoglycemia Expected: 06/20/2024 (Approximate), Expires: 06/20/2025 [facility] Comment on above: Expected: 06/20/2024 (Approximate), Expi res: 06/20/2025 Start: 06-20-2024 End: 06-20-2025 Proinsulin Proinsulin Lab Routine Hypoglycemia Expected: 06/20/2024 (Approximate), Expires: 06/20/2025 [facility] Comment on above: Expected: 06/20/2024 (Approximate), Expi res: 06/20/2025 Start: 05-11-2024 [facility] Start: 05-06-2024 COVID-19 Vaccine ( season) COVID-19 Vaccine () [facility] Start: 05-06-2024 Influenza vaccination Influenza Vaccine (#1) [facility] Start: 04-05-2024 Influenza vaccination Flu vaccine (#1) [facility] Start: 05-06-2023 Covid-19 Vaccine ( season) Covid-19 Vaccine () [facility] Start: 05-06-2023 Influenza vaccination [facility] Start: 09-05-2022 DEPRESSION ASSESSMENT DEPRESSION ASSESSMENT [facility] Start: 01-01-2022 COVID-19 VACCINE (4 - Pfizer series) COVID-19 VACCINE (4 - Pfizer series) [facility] Start: 2020 SHINGRIX VACCINE (1 of 2) SHINGRIX VACCINE (1 of 2) [facility] Start: 2015 COLOGUARD (FIT-DNA) COLOGUARD (FIT-DNA) [facility] Start: 2015 Colonoscopy COLONOSCOPY [facility] Start: 2015 COLORECTAL CANCER SCREENING COLORECTAL CANCER SCREENING [facility] Start: [address] COLONOGRAPHY [facility] Start: 2015 DIABETES SCREEN DIABETES SCREEN [facility] Start: 2015 Diabetes Screening Diabetes Screening [facility] Start: 2015 FECAL OCCULT BLOOD FECAL OCCULT BLOOD [facility] Start: 2015 Lipid 1996 panel - Serum or Plasma Lipid Screening [facility] Start: 2015 LIPID SCREEN LIPID SCREEN [facility] Start: 2015 Screening for malignant neoplasm of colon [facility] Start: 2015 SIGMOIDOSCOPY SIGMOIDOSCOPY [facility] Start: 2010 Lipid panel Lipids [facility] Start: 2010 Mammography [facility] Start: 2010 Screening for malignant neoplasm of breast [facility] Start: 2005 Diabetes screen Diabetes screen [facility] Start: 2000 HPV TESTING HPV TESTING [facility] Start: 2000 Screening for malignant neoplasm of cervix [facility] Start: 1991 PAP TESTING PAP TESTING [facility] Start: 1991 Screening for malignant neoplasm of cervix Pap Smear [facility] Start: 1989 DTaP/Tdap/Td vaccine (1 - Tdap) DTaP/Tdap/Td vaccine (1 - Tdap) [facility] Start: 1989 Hepatitis B vaccine (1 of 3 - 19+ 3-dose series) Hepatitis B vaccine (1 of 3 - 19+ 3-dose series) [facility] Start: 1989 Urine microalbumin profile [facility] Start: 1988 HEPATITIS C SCREENING HEPATITIS C SCREENING [facility] Start: 1988 Hepatitis C screening Hepatitis C screen [facility] Start: 1988 HIV SCREENING HIV SCREENING [facility] Start: 1985 HIV screening HIV screen [facility] Start: 1982 Depression Monitoring Depression Monitoring [facility] Start: 1982 Depression Screen Depression Screen [facility] Start: 1970 COVID-19 VACCINE (#1) COVID-19 VACCINE (#1) [facility] Start: 1970 HEPATITIS B (1 of 3 - 3-dose series) HEPATITIS B (1 of 3 - 3-dose series) [facility] Start: 1970 Hepatitis B Vaccine (1 of 3 - 3-dose series) Hepatitis B Vaccine (1 of 3 - 3-dose series) [facility] Start: 1970 Screening for malignant neoplasm of colon [facility] End: 09-18-2024 Basic Metabolic Panel w/ Reflex to MG Basic Metabolic Panel w/ Reflex to MG Lab Routine Daily for 3 Weeks starting 08/29/2024 until 09/18/2024, 2 completed [facility] Comment on above: Daily for 3 Weeks starting 08/29/2024 un til 09/18/2024, 2 completed End: 09-18-2024 CBC W Auto Differential panel - Blood CBC with Auto Differential Lab Routine Daily for 3 Weeks starting 08/29/2024 until 09/18/2024, 2 completed [facility] Comment on above: Daily for 3 Weeks starting 08/29/2024 un til 09/18/2024, 2 completed End: 07-29-2024 EGD - THERAPEUTIC, EUS, OR TUBE INTERVENTIONS EGD - THERAPEUTIC, EUS, OR TUBE INTERVENTIONS Endoscopy Routine Gastroparesis 1 Occurrences starting 07/29/2023 until 07/29/2024 [facility] Work Phone: Comment on above: 1 Occurrences starting 07/29/2023 until 07/29/2024 End: 05-16-2024 Esophageal motility study w/interp&rpt MANOMETRY ESOPHAGEAL Endoscopy Routine Nausea 1 Occurrences starting 05/16/2023 until 05/16/2024 [facility] Work Phone: Comment on above: 1 Occurrences starting 05/16/2023 until 05/16/2024 Esophageal motility study w/interp&rpt MANOMETRY ESOPHAGEAL Endoscopy Routine Nausea 05/25/2023 [facility] Work Phone: End: 06-14-2024 Gastric emptying imaging study NM GASTRIC EMPTYING SOLID Radiology Routine Nausea 1 Occurrences starting 05/16/2023 until 06/14/2024 [facility] Work Phone: Comment on above: 1 Occurrences starting 05/16/2023 until 06/14/2024 Glucose [Mass/volume ] in Serum or Plasma POCT glucose Point of Care Testing Routine 4X Daily until discontinued starting 08/28/2024 [facility] Comment on above: 4X Daily until discontinued starting Oxygen therapy [Minimum Data Set] Initiate Oxygen Therapy Protocol Respiratory Care Routine As Needed until discontinued starting 08/17/2024 [facility] Work Phone: Comment on above: As Needed until discontinued starting Oxygen therapy [Minimum Data Set] Initiate Oxygen Therapy Protocol Respiratory Care Routine As Needed until discontinued starting 08/28/2024 [facility] Work Phone: Comment on above: As Needed until discontinued starting Patient Education [facility] Work Phone: Patient referral [facility] Work Phone: SURGICAL PATHOLOGY [facility] Work Phone: Comment on above: Release Upon Ordering for 1 Occurrences starting 07/14/2023, 1 completed [facility] Immunizations Immunization Date Immunization Notes Care Provider [facility] 04-27-2024 zoster vaccine recombinant Kulwant Hodge MD Work Phone: [facility] 06-15-2022 SARS-CoV-2 (COVID-19 ) [id number] Yolanda Goldman [facility] 06-09-2022 influenza, seasonal, injectable Kulwant Hodge MD Work Phone: [facility] 06-09-2022 influenza virus vaccine, unspecified formulation Nurse 2 Work Phone: [facility] 03-18-2022 SARS-CoV-2 mRNA (kfwfyfapoef-hjdh-uhk jett) vaccine Ospina SALAM [facility] 11-06-2021 SARS-CoV-2 (COVID-19 ) mRNA BNT-162b2 vax Ospina SALAM [facility] 05-06-2021 influenza virus vaccine, unspecified formulation JHOANA MELGOZA [facility] 02-26-2021 SARS-CoV-2 (COVID-19 ) mRNA BNT-162b2 vax JHOANA MELGOZA [facility] 02-05-2021 SARS-CoV-2 (COVID-19 ) mRNA BNT-162b2 vax Anai FORBES [facility] Comment on above: Result Comment: 2021: [id number] NEGATED: Highlighted row has not occurred!04-14-2022 influenza virus vaccine, unspecified formulation Monique Marquez [facility] Payers Date Payer Category Payer [employer] [id number] 2022 Unknown RINA MARTINEZ GLORIA PPO [id number] 2022-Present [phone] [address] [place] [address] PPO [id number] 2018 Private Health Insurance [id number] 2018 Private Health Insurance [facility] CHOICE PLUS [id number] 2018-Present [phone] [address] [place] [address] HMO [id number] .7.3.757871.315 1970 Unknown [id number] 2.16.840.1.736272.3.579.2 .647 1970 Unknown [id number] 2.16.840.1.662731.3.579.2 .593 1970 Unknown [id number] 2.16.840.1.353368.3.579.2 .593 1970 Unknown [id number] 2.16.840.1.688383.3.579.2 .593 1970 Unknown [id number] 2.16.840.1.316743.3.579.2 .593 1970 Unknown [id number] 2.16.840.1.092000.3.579.2 .593 1970 Unknown [id number] 2.16.840.1.845681.3.579.2 .593 1970 Unknown [id number] 2.16.840.1.715119.3.579.2 .593 1970 Unknown [id number] 2.16.840.1.379943.3.579.2 .593 1970 Unknown [id number] 2.16.840.1.936294.3.579.2 .593 1970 Unknown [id number] 2.16.840.1.364892.3.579.2 .593 1970 Unknown [id number] 2.16.840.1.760171.3.579.2 .593 1970 Unknown [id number] 2.16.840.1.679336.3.579.2 .593 1970 Unknown [id number] 2.16.840.1.475992.3.579.2 .593 1970 Unknown [id number] 2.16.840.1.169177.3.579.2 .593 1970 Unknown [id number] 2.16.840.1.198690.3.579.2 .593 1970 Unknown [id number] 2.16.840.1.635991.3.579.2 .593 1970 Unknown [id number] 2.16.840.1.596624.3.579.2 .593 1970 Unknown [id number] 2.16.840.1.797964.3.579.2 .593 1970 Unknown [id number] 2.16.840.1.234732.3.579.2 .593 1970 Unknown [id number] 2.16.840.1.457560.3.579.2 .593 1970 Unknown [id number] 2.16.840.1.472509.3.579.2 .356 1970 Unknown [id number] 2.16.840.1.222554.3.579.2 .356 1970 Unknown [id number] 2.16.840.1.312013.3.579.2 .1286 1970 Unknown [id number] 2.16.840.1.320999.3.579.2 .1286 1970 Unknown [id number] 2.16.840.1.218888.3.579.2 .1286 1970 Unknown [id number] 2.16.840.1.148946.3.579.2 .1286 1970 Unknown [id number] 2.16.840.1.736482.3.579.2 .176 1970 Unknown [id number] 2.16.840.1.434054.3.579.2 .175 1970 Unknown [id number] 2.16.840.1.801744.3.579.2 .727 1970 Unknown [id number] 2.16.840.1.527784.3.579.2 .727 1970 Unknown [id number] 2.16.840.1.210438.3.579.2 .727 1970 Unknown [id number] 2.16.840.1.614718.3.579.2 .727 1970 Unknown [id number] 2.16.840.1.989190.3.579.2 .727 1970 Unknown [id number] 2.16.840.1.347525.3.579.2 .727 1970 Unknown [id number] 2.16.840.1.066305.3.579.2 .727 1970 Unknown [id number] 2.16.840.1.827328.3.579.2 .727 1970 Unknown [id number] 2.16.840.1.900849.3.579.2 .727 1970 Unknown [id number] 2.16.840.1.295083.3.579.2 .1259 1970 Unknown [id number] 2.16.840.1.639964.3.579.2 .1259 1970 Unknown [id number] 2.16.840.1.396387.3.579.2 .1259 1970 Unknown [id number] 2.16.840.1.728380.3.579.2 .1259 1959 Medicaid [id number] 1959 Self-pay [id number] 1959 Unknown [id number] 1959 Unknown [id number] Medicare Medicare [id number] Medicare Medicare [id number] Unknown [id number] 2.16.840.1.593029.3.579.2 .531 Unknown [id number] 2.16.840.1.370576.3.579.2 .531 Unknown [id number] 2.16.840.1.739768.3.579.2 .531 Worker's Compensation [employer] Ins [facility] [id number] Social History Date Type Detail Facility Start: 12-03-2021 End: 07-13-2024 Tobacco smoking status Ex-smoker (finding) [facility] Start: 08-12-2020 End: 01-07-2025 Sex Assigned At Female [facility] Tobacco smoking status Never [facility] Start: 1970 Sex Assigned At Female [facility] End: 09-05-2011 History of tobacco use Current smoker [facility] Work Phone: End: 09-05-2011 History of tobacco use Cigarette Smoker [facility] Work Phone: Start: 04-28-2018 End: 07-13-2024 Tobacco use and exposure Smokeless tobacco non-user [facility] Work Phone: Start: 04-28-2018 End: 08-28-2024 Alcohol intake Current drinker of alcohol (finding) [facility] Start: 08-12-2020 End: 01-07-2025 History of Social function [facility] Start: 04-28-2018 End: 05-06-2023 Tobacco Comment still smokes [facility] Start: 04-28-2018 Alcohol Comment social [facility] Start: 1970 Sex Assigned At Not on file [facility] Start: 07-14-2023 Alcohol intake Ex-drinker (finding) [facility] Start: 06-08-2024 [facility] Start: 07-13-2024 End: 01-07-2025 Alcoholic beverage intake Lifetime non-drinker (finding) [facility] Start: 08-15-2024 Alcohol Comment Rare [facility] Has the electric, ga s, oil, or water company threatened to shut off services in your home in past 12Mo No [facility] How often to you hav e a drink containing alcohol? Never [employer] (I/We) worried yelena er (my/our) food would run out before (I/we) got money to buy more. Never true [employer] Start: 12-19-2024 Sex Female (finding) [facility] Goals Date Patient Goal Desired Activity /State Functional Status Date Assessment Result Facility 10-19-2024 Functional Status N/A [facility] 10-19-2024 Functional Status [facility] 02-16-2024 Functional Status N/A [facility] 02-19-2023 Functional Status N/A [facility] 07-22-2022 Functional Status N/A [facility] 04-14-2022 Functional Status N/A [facility] Clinical Notes 12-02-2021 to 01-11-2025 EUN Ashraf - 01/07/2025 2:20 PM EDT Note Date & Type Note Facility 01-11-2025 Note I was informed that the insurance declined treadmill nuclear stress test. Actually I wanted to order only routine treadmill stress test. Therefore I will switch the current order to only regular treadmill stress test [facility] 01-07-2025 History of Present illness Narrative Images [...] Review Audit Reviewed by Sienna Murray MA (Stope [employer]er) on 01/07/25 at 1424 Medication Order Taking? Sig Documenting Provider Last Dose Status acarbose (Precose) 25 MG tablet [id number] Take 1 tablet (25 mg) by mouth in the morning and 1 tablet (25 mg) before bedtime. Kulwant Hodge MD Active aspirin 81 MG EC tablet [id number] Take 81 mg by mouth Daily Historical ProviderMD Active cholecalciferol (Vitamin D-3) 50 MCG (1999) capsule [id number] Take 1 capsule by mouth Daily Kulwant Hodge MD Active dicyclomine (Bentyl) 20 MG tablet [id number] Take 1 tablet by mouth in the morning and 1 tablet in the evening and 1 tablet before bedtime. Kulwant Hodge MD Active hyoscyamine (Anaspaz,Levsin) 0.125 MG tablet [id number] Take 1 tablet by mouth every 6 (six) hours if needed Kulwant Hodge MD Active levETIRAcetam (Keppra) 750 MG tablet [id number] Take 1 tablet (750 mg) by mouth in the morning and 1 tablet (750 mg) before bedtime. EUN Ashraf Active lisinopril 20 MG tablet [id number] Take 20 mg by mouth Daily Kulwant Hodge MD Active metoprolol succinate XL (Toprol-XL) 50 MG 24 hr tablet [id number] Take 50 mg by mouth in the morning. Kulwant Hodge MD Active pantoprazole (ProtoNix) 40 MG EC tablet [id number] Take 40 mg by mouth in the morning. Take before meals. Kulwant Hodge MD Active sertraline (Zoloft) 50 MG tablet [id number] Take 50 mg by mouth in the morning. uKlwant Hodge MD Active Patient is here today [...] triceps, wrist extensors, wrist extensors, wrist flexor, transformer molder strength 5/5. LUE Strength deltoid, biceps, triceps, wrist extensors, wrist extensors, wrist flexor, transformer molder strength 5/5. RLE Strength illopsoas, quadriceps, tibialis [...] and all orders for this visit: Seizure ([facility]) Patient was evaluated at [facility] 10/20/2024 for stroke like symptoms manifested as [...] aura and without status migrainosus, not intractable ([facility]) She was also treated for migraine and [...] than a moderate stenosis. Testing review from [facility] 10/20/[address]: revealed no acute findings [...] Nikki Ayoub PA-C documented in this encounter [facility] 12-28-2024 Note [facility] Note Reason for cardiology [...] Arrhythmia, Hypertension, and NSVT (nonsustained ventricular tachycardia) ([facility]). Surgical History She has a past surgical [...] lower extremity edema. (more content not included)... [facility] 10-21-2024 Note Discharge Summary Admission and Discharge [...] be reviewed and discussed with PCP or security control assessor MD once the hospital metal punch press operator is able to reach him/her. I [...] made to ensure accuracy, however, inadvertently computerized stapler machine mistakes may be present. Services Consulted Consult to Neurology - Ordered -- 10/19 (more content not included)... [facility] Comment on above: Result Comment: Elec tronically Signed By: Guerline WALLS\.br\Date and Time Signed: 10/20/24 16:06 EST\.br\Electronically Co-Signed By: Eliezer Lorenzo DO\.br\Date and Time Co-Signed: 10/21/24 15:34 EST 10-20-2024 Hospital Discharge instructions Patient Education 10/20/2024 15:59:25 Seizure, Adult, Uqyt-gv-Ldum Seizure, Adult A seizure is a sudden [...] Follow these instructions at home: Medicines Take qdoj-wbo-xgjldmb and prescription medicines only as told by [...] the [place] ask your local department of [place] vehicles when you can drive. Get a [...] medicines are used to treat seizures. Take zaui-lrl-bqmjmld and prescription medicines only as told by your doctor. This information is not intended to replace advice given to you by your health care provider. Make sure you discuss any questions you have with your health care provider. Document Revised: 02/25/2021 Document Reviewed: 02/27/2021 [employer] Patient Education 2023 20/20 [employer] 10/20/2024 11:40:02 Vitamin B12 Deficiency, Luwh-ci-Ifdx Vitamin B12 Deficiency Vitamin B12 deficiency means [...] provider. Document Revised: 04/16/2022 Document Reviewed: 04/16/2022 [employer] Patient Education 2023 20/20 [employer] 10/20/2024 11:40:02 Vitamin D Deficiency, Ouip-gk-Rlra Vitamin D Deficiency Vitamin D deficiency is [...] dietitian for more information. General instructions Take ctti-xft-pwnrcmq and prescription medicines only as told by [...] provider. Document Revised: 2022 Document Reviewed: 2022 [employer] Patient Education 2023 20/20 [employer] 10/20/2024 11:40:02 Vitamin D Test Vitamin D [...] including vitamins, herbs, eye drops, creams, and fhkl-vpe-mqooerq medicines. Any bleeding problems you have. Any [...] provider. Document Revised: 2022 Document Reviewed: 2022 [employer] Patient Education 2023 20/20 [employer] 10/20/2024 11:40:02 Migraine Headache, Yavz-mj-Ijql Migraine Headache A migraine headache is a [...] Follow these instructions at home: Medicines Take vvvl-wdc-sodqasb and prescription medicines only as told by [...] for Headache and Migraine Patients (CHAMP): headachemigraine.org [place] Migraine Foundation: americanmigrainefoundation.org National Headache Foundation: headaches.org [...] provider. Document Revised: 04/18/2023 Document Reviewed: 04/18/2023 Elsevier Patient Education 2023 20/20 [employer] Follow Up Care 10/19/2024 17:04:31 With:JUDI YOUSSEF Address: [address] [place] [address]- [phone] Business (1) When:1 to 2 days With:Randy BAKER, REGINALDO Baker Address: [address] [place] [address] [place] [address]- When:2 to 4 weeks [facility] 10-20-2024 Note Patient Education - Text [...] provider. Document Revised: 04/16/2022 Document Reviewed: 04/16/2022 [employer] Patient Education ? 2023 20/20 [employer] Neurology Seizure, Adult A seizure is a [...] problems. ??? Conditions (more content not included)... [facility] 10-20-2024 Evaluation + Plan note Extrac jun from: Title:Consult Note-neurology Author:Rodney PERRY, N ichole Date:10/20/24 The patient is a [...] deep vein thrombosis (DVT) prophylaxis (Z79.899: Other extermination supervisor (current) drug therapy) Abdominal pain (R10.9: Unspecified abdominal pain) Extracted from: Title:Admission H & P Author:VIKAS ALVAP-USAMA, R enee Date:10/19/24 Awaiting med rec for all dx. 1. Stroke-like symptoms [...] deep vein thrombosis (DVT) prophylaxis (Z79.899: Other usp (current) drug therapy) -Lovenox, early ambulation Orders: [...] made to ensure accuracy, however, inadvertently computerized stapler machine mistakes may be present. Extracted from: Title:ED [...] Hospitalist for continued care NIH Stroke Scale [facility] [id number] NoteInterdisciplinary Note - PT PT Evaluation completed with an [facility] of . Pt was Independent for bed mobility and transfers. Pt was able to ambulate at Mod I level due to right bone pain from a previous fall on ice. Pt performing well this date. No further [facility]25 NotePatient Education - Text Gastroenterology Vitamin B12 [...] provider. Document Revised: 04/16/2022 Document Reviewed: 04/16/2022 [employer] Patient Education ? 2023 [employer] Neurology Migraine Headache A migraine headache [...] chest pain (nitrogl (more content not included)... [facility]02-15-2025 NoteConsultation Note Chief Complaint stroke Reason for [...] light touch on the right. Cerebellar exam: Jqbdie-jq-hdiy reveals no ataxia. Gait is deferred. The neurological exam was performed by a healthcare professional which was witnessed and supervisedby me via video telemedicine visit consented to by the patient or appropriate patient hardware supplies sales representative. 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: Obeys both correctly = 0 [...] reviewed with the patien (more content not included)...[facility]:Result Comment: Electronically Signed By: Rodney PERRY, Diana\.br\Date and Time Signed: 10/20/24 07:52 EST\.br\Electronically Co-Signed By: Rush Padilla MD\.br\Date and Time Co-Signed: 10/20/24 10:24 [id number] NoteHistory and Physical Chief Complaint To ED [...] both correctly = 0 Open and close eyes/transformer 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: Obeys both correctly = 0 [...] 34.2 gm/dL (10/19/24 17:06:00) RDW: 14.1 % (10/19/24:06:00) Platelet: 424 E9/L (10/19/24:06:00) MPV: 7.2 fL (10/19/24:06:00) Neutro Auto: 55 % (10/19/24:06:00) Lymph Auto: 33.3 % (10/19/24:06:00) Gonzales Auto: 7.2 % (10/19/24:06:) Eos Auto: 3.9 % (10/19/24:06:) Basophil Auto: 0.6 % (10/19/24:06:) Neutro Absolute: 2.9 E9/L (10/19/24::) Lymph Absolute: 1.8 E9/L (10/19/24:06:00) Gonzales Absolute: 0.4 E9/L (10/19/24:06:00) Eos Absolute: 0.2 E9/L (10/19/24:06:) Basophil Absolute: 0 E9/L (10/19/24:06:) PT: 10.7 second(s) (10/19/24:06:00) INR: 0.96 (10/19/24::00) PTT: 40.8 second(s) High (10/19/24:06:00) Glucose Lvl: 107 mg/dL (10/19/24:06:00) BUN: 22 mg/dL High (10/19/24:06:) Creatinine: 0.8 mg/dL (10/19/24:06:00) eGFR: 87 mL/min/1.73 m2 (10/19/24:06:00) BUN/Creat Ratio: 28 High (10/19/24:06:00) Sodium Lvl: 140 mmol/L (10/19/24:06:00) Potassium Lvl: 3.4 mmol/L Low (10/19/24:06:00) Chloride: 110 mmol/L (10/19/24:06:00) CO2: 24 mmol/L (10/19/24:06:00) AGAP: 9 mEq/L (10/19/24 17:06:00) Calcium Lvl: 8.9 mg/dL (10/19/24 17:06:00) Alk [...] 93 mg/dL (10/19/24 17:10:00) POC Device SN: [id number] (10/19/24 17:10:00) POC User ID: [id number] (10/19/24 17:10:00) POC Username: POC Userna (more content not included)...[facility]:Result Comment: Electronically Signed By: Guerline [...] 08/14/2019 HCT 31.2 (L) (more content not included)...[facility] 08-30-2024 History of Present illness Narrative* Bobbi Renee RN - 08/30/2024 4:18 PM EST Discharge instructions given to pt, verbalized understanding, all questions answered, pt dischargedhome per ambulatory with discharge scripts. t 4:20 PM * Miguel Wild MD - 08/30/2024 6:45 AM EST [...] lower lobe infiltrate, which could represent pneumonia. Oliver Romero DO 08/30/2024, 6:45 AM Attestation signed by Miguel Wild MD I personally evaluated the patient and directed the medical decision making with Resident after thephysical/radiologic exam and laboratory values were reviewed and confirmed. Miguel Wild MD * Sumeet Mayberry, PT - 08/29/2024 10:11 AM EST Physical Therapy Facility/Department: [facility] RENAL//MED SURG Physical Therapy [...] amount this morning. 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 She had x-ray KUB and was removed [...] Level of Assist for Transfers: Independent Active Supply Chain Associate: Yes Mode of Transportation: Car Occupation: [employer] employment Type of Occupation: Works as a [...] Good Standing - Dynamic: Good;- OutComes Score [facility] - Mobility [facility] Basic Mobility - Inpatient How much [...] climbing 3-5 steps with a railing?: None [facility] Inpatient Mobility Raw Score : 24 [facility] Inpatient T-Scale Score : 61.14 Mobility [...] from the original note were not included. [facility] Internal Medicine Teaching Residency Program Inpatient Daily Progress Note Patient: Constantino Cardoso Date of : 1970 Acct: [id number] Room: 0324/0324-01 Admit date: 08/28/2024 Today's date: [...] Hypertension Gastroparesis and dysphagia - G-POEM at [facility] in 08/27 Mitral valve prolapse GERD Migraines and severe obeisty - s/p Rceg-oj-K-bypass 2018 presents with a chief complaint of [...] amount this morning. 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 She had x-ray KUB and was removed [...] Problem: Intestinal obstruction (HCC) CT scan at [facility] -dilated large bowel with air-fluid level Transferred to [facility] -x-ray KUB: Nonobstructive bowel gas pattern, mild [...] Juan Dhaliwal MD Internal Medicine Resident, PGY-1 [facility]; [place], [place] 08/29/2024, 6:54 AM Associated attestation - [...] this chart was generated using voice recognition [employer] dictation software. Although every effort was made to ensure the accuracy of this automated stapler machine, some errors in stapler machine may have occurred. * Miguel Wild MD - 08/29/2024 6:33 AM EST [...] lower lobe infiltrate, which could represent pneumonia. Oliver Romero, 08/29/2024, 6:34 AM Attestation signed by Miguel Wild MD I personally evaluated the patient and directed the medical decision making with Resident after thephysical/radiologic exam and laboratory values were reviewed and confirmed. Labs stable, abd films OK. Consider trial liquids around tube. Miguel Wild MD [facility] Discharge [facility]* Discharge Instructions* Sky [...] sent through Care Everywhere. * Bowel Obstruction ([place]) [facility] Discharge instructions* Discharge Instructions* Larisa [...] if your caregiver approves them. Only take ksca-ujy-jgtmttr or prescription medicines for pain, discomfort, or [...] 08/22/2006 Document Revised: 02/20/2013 Document Reviewed: 12/20/2012 [facility] Patient Information 2013 No.1 [employer] [facility] .EGD DISCHARGE INSTRUCTIONS Activity: Rest today. No [...] or neck pain [facility] History of Present illness Narrative* Kulwant [...] 3 months (around 10/13/2024). documented in this encounterMoberly [facility] [id number] History of Present illness Narrative* Kulwant Hodge MD - 06/20/2024 10:50 AM EDT Constantino Cardoso is a 54 y.o. female Kulwnat Hodge MD presents with chief complaint of [...] 3 weeks (around 07/11/2024). documented in this encounterMoberly [facility] Medical [id number] [facility] Reason for [...] Arrhythmia, Hypertension, and NSVT (nonsustained ventricular tachycardia) ([facility]). Surgical History She has a past surgical [...] due to vasovagal r (more content not included)...[facility] 05-11-2024 Procedure [facility]08-22-2024 Evaluation note* Author [facility] Authored April 26, 2024 9: 26am [...] twice or three times daily if needed. [facility] Work Phone: 1(296) 386-450707-15-2024 [facility] Note Reason for [...] hiatal hernia and acid (more content not included)...[facility] 02-16-2024 Evaluation + Plan note Diagnostic Tests Pending * Urine Culture 02/16/24 [facility]06-12-2024 [facility] Reason [...] 04/30/2019 PROT 6.3 08/ (more content not included)...[facility] 08-25-2023 NoteHNO ID: [id number] Author: Ellis Mayberry DO Service: ? Author [...] Successful intubation technique: video laryngoscopy Devices used: [email or web address] Endotracheal tube insertion site: oral Blade: Jake Blade size: #3 ETT size (mm): 7.0 Measured from: lips Measurement (cm): 22 Placement verified by: chest auscultation and capnometry Cormack-Lehane Classification: grade I - full view of glottis Number of attempts at approach: 1 Airway not difficult SIGNATURE: Ellis Zamorael PATIENT NAME: Constantino Cardoso DATE: August 25, 2023 TIME: 2:59 PM CSN: [id number] Patient Name: Constantino Cardoso Procedure Date: 08/25/2023 2:38 PM Date of : 1970 Admit Type: Outpatient Age: 53 Gender: Female Note Status: Finalized Attending MD: Marques Bradley MD, [id number] Procedure: Upper GI endoscopy Indications: Gastroparesis- for [...] the patient. Procedure Code(s): --- Professional --- 64753 Diagnosis Code(s): --- Professional --- K44.9 Z98.890 CPT copyright 2020 [place] [employer]. All rights reserved. Attending Participation: I personally performed the entire procedure. Scope In: 2:59:10 PM Scope Out: 3:37:20 PM MD Marques Rainey MD 08/25/2023 3:41:00 PM This report has been signed electronically by Marques Bradley MD Number of Addenda: 0 Note Initiated On: 08/25/2023 2:38 [facility]11-24-2023 Note HNO ID: [id number] Author: Evelyn Black RN Service: ? Author Type: Registered Nurse Type: Progress Notes Filed: 07/29/2023 11:18 AM Note Text: [facility]11-24-2023 History of Present illness Narrative* Evelyn Black RN - 07/29/2023 11:17 AM EST e [facility] Instructions* Patient Instructions* Americo Montalvo RD - 07/22/2023 4:04 PM EST [...] High Protein, Atkins, Boost Glucose Control, Ow[place], [place] Breakfast Essentials Light Start mixed with Fairlife [...] calories, no carbonation, no caffeine. Protein juarez (fnlhbvt6e, Isopure, Gatorade protein), electrolyte drinks (Gatorade or Powerade zero, sugar free liquid IV or Drip Drop), sugar free jello and sugarfree popsicles are also acceptable. Nutrition Monitoring & Evaluation: increase PO intake >75% of estimated needs, weight check and patient update Need for Follow up: based on surgery status documented in this encounterUpper [facility] Center11-17-2023 NoteHNO ID: [id number] Author: Americo Montalvo RD Service: ? Author Type: Registered Dietitian Type: Progress Notes Filed: 07/22/2023 4:06 PM Note Text: [facility] Nutrition Therapy: Virtual Consult - Initial Assessment I have communicated my name and active licensure. The patient?s identity and physical location were verified at the time of this visit. Either the patient or their legal hardware supplies sales representative has been informed of [...] High Protein, Atkins, Boost Glucose Control, Owyn, [place] Breakfast Essentials Light Start mixed with Fairlife fat free or 1% milk. -Check www.bariatricfusion.com or www.Tinkercad.com for additional options. Take small bites, eat slowly, chew food well, and always eat protein first. Separate eating and drinking by 30 min before and after. Aim for >64 oz water/day. Take small sips and avoid straws. Liquids should be sugar-free, no calories, no carbonation, no caffeine. 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 [place] body weight: 159 lbs. 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 Recommendation was a GPOEM. Will consult with surgeon next week regarding next POC for pt. Pt VU. [facility] History of Present illness Narrative* Americo Montalvo, RD - 07/22/2023 1:15 PM EST [facility] Nutrition Therapy: Virtual Consult - Initial Assessment I have communicated my name and active licensure. The patient s identity and physical location wereverified at the time of this visit. Either the patient or their legal hardware supplies sales representative has been informed of [...] High Protein, Atkins, Boost Glucose Control, Owyn, [place] Breakfast Essentials Light Start mixed with Fairlife fat free or 1% milk. -Check www.bariatricfusion.com or www.Tinkercad.com for additional options. Take small bites, eat slowly, chew food well, and always eat protein first. Separate eating and drinking by 30 min before and after. Aim for >64 oz water/day. Take small sips and avoid straws. Liquids should be sugar-free, no calories, no carbonation, no caffeine. Protein juarez (pyqkipg3b, Isopure, Gatorade protein), electrolyte drinks (Gatorade or [...] significant for adult onset weight gain (maintains [id number] lbs, highest 220 lbs in 2018). 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 [place]ayson body weight: 159 lbs. 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 Procedure Code(s): --- Professional --- 51194 Diagnosis Code(s): --- Professional --- K44.9 K31.89 Z98.890 R10.13 CPT copyright 2020 [employer]. All rights reserved. Attending Participation: I personally performed the entire procedure. Scope In: 10:40:19 AM Scope Out: 10:50:37 AM MD Marques Rainey MD 07/14/2023 10:53:09 AM This report has been signed electronically by Marques Bradley MD Number of Addenda: 0 Note Initiated On: 07/14/2023 10:24 [facility]11-09-2023 Nurse Note* Mónica Spaulding RN - [...] RN In Department: GASTROENTEROLOGY documented in this encounterUpper [facility]-2023 NoteHNO ID: [id number] Author: Brennen Shaw, PhD Service: ? Author Type: Physician Type: Progress Notes Filed: 07/19/2023 10:07 AM Note Text: [facility] BARIATRIC SURGERY BEHAVIORAL HEALTH EVALUATION DATE OF SERVICE: July 13, 2023 TIME OF SERVICE: 2:10 PM-3:29 PM COST CENTER: [facility] CPT CODE: - 22769 Brief Emotional/Behavioral Assessment with scoring/documentation - [id number] Virtual Psych Diagnostic Eval BILLING CODE: ENDO PSYL MAIN 84984/Marco DATE OF FIRST SERVICE THIS CYCLE: July 13, 2023 SESSION #: 1 BMI Surgical Pathway Visit type: Bariatric Surgeon Visit I have communicated my name and active licensure. The patient's identity and physical location were verified at the time of this visit. Either the patient or their legal hardware supplies sales representative has been informed of [...] during the binge episod (more content not included)...[facility]09-22-2023 Miscellaneous Notes* Telephone Encounter - [...] Pt agreed with plan. documented in this encounterUpper [facility] Center09-21-2023 NoteHNO ID: [id number] Author: Nabil Bell RT(R) Service: Nuclear Medicine [...] 715 PATIENT DISCHARGED TO: Ambulatory patient, left [place] department area. A Diagnostic radioactive procedure has taken place, with no further precautions necessary other than routine body substance precautions. More information regarding radiation safety can be found using this link: [email or web address] SIGNATURE: RT Charmaine(R) PATIENT NAME: Constantino Cardoso DATE: May 26, 2023 TIME: 7:17 AM PAGER/CONTACT #:[facility]09-20-2023 NoteHNO ID: [id number] Author: Pedro Gonzalez LPN Service: ? Author Type: LICENSED NURSE Type: Progress Notes Filed: 05/25/2023 4:15 PM Note Text: Name: Constantino Cardoso [facility]#: [id number] Date: 05/25/2023 ESOPHAGEAL MANOMETRY TEST Indication: Nausea [...] patient tolerated the test without difficulty. .[facility] History of Present illness Narrative* Pedro Gonzalez LPN - 05/25/2023 3:55 PM EDT Name: Constantino Cardoso [facility]#: [id number] Date: 05/25/2023 ESOPHAGEAL MANOMETRY TEST Indication: Nausea [...] difficulty. .Pedro Gonzalez LPN documented in this encounterUpper [facility] Center09-11-2023 Miscellaneous Notes* Telephone Encounter - [...] after a gastric bypass. documented in this encounterUpper [facility] Center09-01-2023 NoteHNO ID: [id number] Author: Marques Bradley MD Service: ? Author [...] for internal providers or letter via the [employer] Postal Service for external providers. Chief Complaint: [...] Marques Bradley MD Date: 05/12/2023 Time: 8:15 [facility]08-28-2023 Miscellaneous Notes* Telephone Encounter - Evelyn Black RN - 05/02/2023 9:12 AM EDT BMI SPECIALTY CARE COORDINATION TELEPHONE ENCOUNTER Chief complaint & duration dysphagia. Type of procedure: hernia repair hiatal with Dr. MORTENSEN in [place]. Sending OP notes Nursing assessment (subjective/objective) . pain in chest area and getting worse Went to [place] ED March 2023 who told her she needed a stent in her heart..but her c/o were difficulty swallowing and sent pt home and referred her to [facility] and was there in the hospital for [...] appt after records obtained documented in this encounterUpper [facility] Center08-22-2023 Miscellaneous Notes* Telephone Encounter - Evelyn Black RN - 04/26/2023 2:00 PM EDT [facility] SPECIALTY CARE COORDINATION TELEPHONE ENCOUNTER Second attempt to contact this pt. Pt has upcoming information, and unable to complete any chart prep, history, symptoms, testing etc. LVM and call back number. documented in this encounterUpper Valley [facility] Center08-17-2023 Evaluation note* Encounter Date Diagnosis Assessment Notes Treatment Notes Treatment Clinical Notes Apr, Esophageal dysmotility (ICD-10 - K22.4) Apr, Esophageal spasm (ICD-10 - K22.4) Apr, Nausea & vomiting (ICD-10 - R11.2) Ashleynet reports that she still has nausea but no vomiting Patient reports that she is to see Dr. Strong at [facility] Patient is to start dicyclomine 20 mg 4 times daily sent to pharm today RTO 6 weeks Apr, Dysphagia (ICD-10 - R13.10) [facility] Other 08-14-2023 Miscellaneous Notes* Telephone Encounter - Evelyn Black RN - 04/18/2023 2:13 PM EDT [facility] SPECIALTY CARE COORDINATION TELEPHONE ENCOUNTER Contacted pt regarding a referral from Dr Martinez's office. LVM and call back number. documented in this encounterUpper Valley [facility] Center08-03-2023 Miscellaneous Notes* Telephone Encounter - Yancy Lopez - 04/07/2023 1:15 PM EDT Referral rec'd documented in this encounterUpper Valley Medical Center06-17-2023 Evaluation + Plan note [...] pain, # 20 tab(s), Refills(s) 0, Pharmacy: [facility]/pharmacy #[id number], 170, cm, 02/19/23 0:56:00 EDT, Height/Length Dosing, 90.2, kg, 02/19/23 0:56:00 EDT, Weight Dosing XR Elbow 3+ Views Right XR Wrist 3+ Views Right [facility]06-17-2023 Hospital Discharge instructions Patient Education 02/19/2023 [...] are safe for you. General instructions Take ksug-tkc-sjsilme and prescription medicines only as told by [...] provider. Document Revised: 12/29/2020 Document Reviewed: 12/29/2020 [employer] Patient Education 2022 20/20 [employer] Follow Up Care 02/19/2023 00:51:16 With:JUDI YOUSSEF Address: [address] [place] [address] [phone] Business (1) When:02/22/2023 Comments:Take the pain medication as prescribed as needed for pain. Please follow-up with your primary care doctor in the next 2 to 3 days for further evaluation management. Please return to the ED for any new or worsening symptoms or [facility]08-10-2022 Hospital Discharge instructions Patient Education 04/14/2022 [...] water added (diluted fruit juice). Eat bland, lbgb-qy-inpvjj foods in small amounts as you are able. These foods include bananas, applesauce, rice, lean meats, toast, and crackers. Avoid fluids that contain a lot of sugar or caffeine, such as energy drinks, sports drinks, and soda. Avoid alcohol. Avoid spicy or fatty foods. General instructions Take znbq-zzb-qsarnla and prescription medicines only as told by your health care provider. Drink enough fluid to keep your urine pale yellow. Wash your hands often using soap and water. If soap and water are not available, use hand background investigator. Make sure that all people in your [...] eating and drinking to prevent dehydration. Take rqty-yvp-xwnotvz and prescription medicines only as told by [...] 08/22/2006 Document Revised: 12/14/2019 Document Reviewed: 01/30/2019 [employer] Patient Education 2020 20/20 [employer] Follow Up Care 01/28/2022 13:58:23 With:Monique Marquez CNP Address: When:3 months [facility] 05-26-2022 Hospital Discharge instructions Patient [...] drinks. ?Tomatoes and foods made with tomatoes. ?[place] or spicy foods. ?Chocolate and peppermint. Do not drink alcohol. General instructions Take vfmg-syq-glzxmhy and prescription medicines only as told by [...] 11/11/2004 Document Revised: 12/18/2018 Document Reviewed: 12/18/2018 [employer] Patient Education 2020 20/20 [employer] Follow Up Care 01/13/2022 12:36:01 With:Monique Marquez CNP Address: When:3 months [facility] 05-09-2022 Hospital Discharge instructions Patient Education 01/11/2022 09:56:58 Endoscopy, Care After Procedure [facility] ([facility] Endoscopy Care After Procedure Please read [...] blood. Document Released: 04/05/2005 Document Re-Released: 02/13/2007 [employer] Patient Information 2010 [employer]. 01/11/2022 09:56:58 Pearce's Esophagus Pearce's Esophagus Pearce's [...] drinks. ?Tomatoes and foods made with tomatoes. ?[place] or spicy foods. ?Chocolate and peppermint. Do not drink alcohol. General instructions Take tvpq-msg-rdepdsb and prescription medicines only as told by [...] 11/11/2004 Document Revised: 12/18/2018 Document Reviewed: 12/18/2018 [employer] Patient Education 2020 20/20 [employer] Follow Up Care 12/03/2021 15:32:26 With:Anai FORBES Address: [address] [place] [address] [facility] (1) When:1 to 2 weeks Comments:Call for any problems. [facility]03-30-2022 Hospital Discharge instructions Follow Up Care 12/02/2021 10:32:32 With:ABAD SWARTZ, JHOANA Castro, URL Address: [address] [place] [address] When: Unknown [facility] Evaluation + Plan note Future Appointments Appointment Date:01/11/2022 09:40:00 AM Scheduled Provider: Location:[facility] Appointment Type:Surgery FT [facility] Evaluation + Plan note Future Appointments Appointment Date:04/14/2022 03:00:00 PM Scheduled Provider:Monique Marquez CNP Location:[facility] Appointment Type:[facility] Follow Up Future Scheduled Tests Radiology* NM Gastric Emptying Study 01/28/22 [facility] Evaluation + Plan note Future Appointments Appointment Date:04/14/2022 03:00:00 PM Scheduled Provider:Monique Marquez CNP Location:[facility] Appointment Type:BAD [facility] Future Appointments Appointment Date:04/20/2022 12:00:00 PM Scheduled Provider: Location:.[facility] Appointment Type:US Abdominal/Pelvis () Appointment Date:06/02/2022 09:45:00 AM Scheduled Provider:Anai FORBES MD Location:[facility] Appointment Type:[facility] Follow Up Future Scheduled Tests Laboratory* Fecal WBC Lactoferrin 04/14/22 * Giardia lamblia, Direct Detection EIA 04/14/22 * O & P Exam, Routine 04/14/22 * Clostridium difficile by PCR 04/14/22 * Enteric Panel by PCR 04/14/22 * CBC w/ Auto Diff 04/14/22 * Comprehensive Metabolic Panel 04/14/22 Radiology* US Abdomen Complete 04/20/22 [facility] Evaluation + Plan note Future Appointments Appointment Date:06/02/2022 09:45:00 AM Scheduled Provider:Anai FORBES MD Location:[facility] Appointment Type:[facility] Follow Up Diagnostic Tests Pending * O & P Exam, Routine 04/29/22 * Giardia lamblia, Direct Detection EIA 04/29/22 [facility] assessment information available [facility] Work Phone: Evaluation noteNo InformationNortDepartment of Veterans Affairs [facility] [employer] Other Evaluation note* Diagnosis Nausea- Primary Nausea alone Dysphagia, unspecified type documented in this encounter [facility] note* Diagnosis Nausea Nausea alone documented in this encounter [facility] note* Diagnosis Dysphagia, unspecified type Gastroparesis History of Pricilla fundoplication Personal history of surgery to other organs documented in this encounter [facility] note* Diagnosis Gastroparesis- Primary Malnutrition of moderate degree (HCC) Malnutrition of moderate degree Gastro-esophageal reflux disease without esophagitis Esophageal reflux Overweight (BMI 25.0-29.9) Overweight Dietary counseling and surveillance Dietary surveillance and counseling documented in this encounter [facility] note* Diagnosis Gastroparesis- Primary documented in this encounter [facility] note* Diagnosis Onset Date Resolution Status Abdominal adhesions acute Dysphagia acute Small bowel obstruction acmaría e [facility] Work Phone: Evaluation note* Diagnosis Hypoglycemia- Primary Hypoglycemia, unspecified Encounter for dietary consultation documented in this encounter [facility] HealthcareEvaluation note* Diagnosis Hypoglycemia Hypoglycemia, unspecified documented in this encounter [facility] HealthcareEvaluation note* Diagnosis Other dysphagia- Primary Other dysphagia documented in this encounter [facility] note* Diagnosis Ileus (HCC)- Primary Paralytic ileus Ileus (HCC) Paralytic ileus Generalized abdominal pain Abdominal pain, generalized Hypokalemia Hypopotassemia Primary hypertension Unspecified essential hypertension Gastroesophageal reflux disease with esophagitis without hemorrhage Major depressive disorder Major depressive disorder, single episode, unspecified Hypokalemia Hypopotassemia Generalized abdominal pain Abdominal pain, generalized documented in this encounter [facility] note* Diagnosis Seizure (CMS/HCC)- Primary Other convulsions History of obstructive sleep apnea Migraine without aura and without status migrainosus, not intractable (CMS/HCC) documented in this encounter [facility] HealthcareEvaluation note* Diagnosis Seizure (CMS/HCC)- Primary Other convulsions History of obstructive sleep apnea Migraine without aura and without status migrainosus, not intractable (CMS/HCC) Dizziness Dizziness and giddiness documented in this encounter [facility] HealthcareHistory and physical note Author Jennie Ayon [facility] May 11, 2024 10:16am Note Date/Time May 11, 2024 10:16am [facility] [address] [place] [address] Gastroenterology H&P Signed Patient: Constantino Cardoso MR#: [id number] : 1970 Acct:[id number] Age/Sex: 53 / F Adm Date: 4 Loc: Room: Type: [facility] Attending Dr: Jennie Ayon MD Copies [...] signed by Jennie Ayon MD> 05/11/24 1016 [facility] Work Phone: History general Narrative - Reported* Type Description Date Medical History mitral valve prolapse Medical History gallstones Medical History Acid reflux Medical History Hiatal Hernia Medical History headache Surgical History hysterectomy Surgical History cholecystectomy Surgical History hiatal hernia repair Hospitalization History see above Hospitalization History kindey infections hospit alized x3 [facility] Other Hospital course Narrative No data available for this section [facility] Discharge instructions No data available for this section [facility] Additional Instructions Follow-up with your primary care doctor Return to ED if develop worsening symptoms or [facility] Work Phone: Hospital Discharge instructions Additional Instructions If your symptoms return/worsen or you develop any further concerns or symptoms please see your doctor or return to the emergency department immediately. Please be sure to continue follow-up with the metal tank erector and with your scheduled EGD and further testing.[facility] Work Phone: Hospital Discharge instructions Additional [...] problems. -Follow up with PCP. -Office number [phone]. [facility] Work Phone: Progress note No data available for this section [facility] (narrative)* Diagnostic Procedure Only (Routine) - Authorized Specialty Diagnoses / Procedures Referred By Contac t Referred To Contact [facility] Diagnoses Nausea Procedures NM GASTRIC EMPTYING SOLID GASTRIC EMPTYING STUDY Marques Bradley MD [address] [place] [address] Molecular & Functional Imaging [address] [place] [address] Referral ID Status Reason Start Date Expiration Date Visits Requested Visits Authorized [id number] Authorized Auto-Generat ed Referral 05/16/2023 06/14/2024 1 1 * Outpatient Procedure (Routine) - Authorized Specialty Diagnoses / Procedures Referred By Contac t Referred To Contact [facility] Diagnoses Nausea Procedures MANOMETRY ESOPHAGEAL ESOPHAGEAL MOTILITY STUDY W/INTERP&RPT Marques Bradley MD [address] [place] [address] [facility] [address] [place] [address] Referral ID Status Reason Start Date Expiration Date Visits Requested Visits Authorized [id number] Authorized Auto-Generat ed Referral 05/16/2023 05/16/2024 1 1 [facility] for referral (narrative)* Outpatient Procedure (Routine) - Closed Specialty Diagnoses / Procedures Referred By Eileen mueller Referred To [facility] Diagnoses Dysphagia, unspecified type Gastroparesis History of Pricilla fundoplication Procedures EGD - THERAPEUTIC, EUS, OR TUBE INTERVENTIONS ESOPHAGOGASTRODUODENOSCOPY TRANSORAL DIAGNOSTIC STOMACH SURGERY PROCEDURE UNLISTED Marques Bradley MD [address] [place] [address] [facility] [address] [place] [address] Referral ID Status Reason Start Date Expiration Date V isits Requested Visits Authorized [id number] Closed Auto-Generate d Referral 05/27/2023 05/27/2024 1 1 [facility] for referral (narrative)* Outpatient Procedure (Routine) - Authorized Specialty Diagnoses / Procedures Referred By Eileen mueller Referred To Contact [facility] Diagnoses Gastroparesis Procedures EGD - THERAPEUTIC, EUS, OR TUBE INTERVENTIONS ESOPHAGOGASTRODUODENOSC OPY TRANSORAL DIAGNOSTIC STOMACH SURGERY PROCEDURE UNLISTED Marques Bradley MD [address] [place] [address] [facility] [address] [place] [address] Referral ID Status Reason Start Date Expiration Date Visits Requested Visits Authorized [id number] Authorized Auto-Generat ed Referral 3 07/29/2024 1 1 [facility] for visit Narrative* Outpatient Procedure (Routine) - Closed Specialty Diagnoses / Procedures Referred By Eileen mueller Referred To [facility] Diagnoses Dysphagia, unspecified type Gastroparesis History of Pricilla fundoplication Procedures EGD - THERAPEUTIC, EUS, OR TUBE INTERVENTIONS ESOPHAGOGASTRODUODENOSCOPY TRANSORAL DIAGNOSTIC STOMACH SURGERY PROCEDURE UNLISTED Marques Bradley MD [address] [place] [address] [place] [address] [place] [address] Referral ID Status Reason Start Date Expiration Date V isits Requested Visits Authorized [id number] Closed Auto-Generate d Referral 05/27/2023 05/27/2024 1 1 [facility] Summary Purpose Family [...] 3:16 PM Hospital Course Note MR#: [id number] [facility] Pt. Name: Constantino Cardoso Admitted: 08/13/2019 [...] to [facility] from [facility] with acute abdominal pain. The pain has started on Tuesday while at work. 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 The pain feels similar to when she was here in April during her stay. During that time, she was told there was nothing left for Dr. Mortensen to do and she has been following up with GI specialist in [place]. She is actually due to have an [...] Procedures FL MODIFIED BARIUM SWALLOW W VIDEO Jose Miguel Lucero MD [address] [place] [address] Referral ID Status Reason Start Date Expiration Date Visits Re quested Visits Authorized [id number] Open 08/17/2024 08/17/2025 1 1 Additional Source Comments INFORMATION SOURCE (unrecogn ized section and content) DATE CREATED AUTHOR 06/03/2020 [facility] DATE CREATED AUTHOR AUTHOR'S ORGANIZ ATION 01/17/2023 [facility] DATE CREATED AUTHOR AUTHOR'S ORGANIZ ATION 04/02/2023 [facility] DATE CREATED AUTHOR AUTHOR'S ORGANIZ ATION 08/26/2023 [facility] DATE CREATED AUTHOR AUTHOR'S ORGANIZ ATION 12/03/2023 [facility] DATE CREATED AUTHOR AUTHOR'S ORGANIZ ATION 02/17/2024 Junior Butts [facility] DATE CREATED AUTHOR AUTHOR'S ORGANIZ ATION 02/19/2024 Junior Polo [facility] DATE CREATED AUTHOR AUTHOR'S ORGANIZ ATION 08/19/2024 [facility] DATE CREATED AUTHOR AUTHOR'S ORGANIZ ATION 09/05/2024 [facility] DATE CREATED AUTHOR AUTHOR'S ORGANIZ ATION 10/21/2024 Junior Polo [facility] DATE CREATED AUTHOR AUTHOR'S ORGANIZ ATION 10/22/2024 Junior Butts [facility] DATE CREATED AUTHOR AUTHOR'S ORGANIZ ATION 10/29/2024 Junior Butts [facility] DATE CREATED AUTHOR AUTHOR'S ORGANIZ ATION 11/17/2024 [facility] DATE CREATED AUTHOR AUTHOR'S ORGANIZ ATION 12/14/2024 [facility] DATE CREATED AUTHOR AUTHOR'S ORGANIZ ATION 12/22/2024 [facility] DATE CREATED AUTHOR AUTHOR'S ORGANIZ ATION 01/10/2025 [facility] DATE CREATED AUTHOR AUTHOR'S ORGANIZ ATION 02/05/2025 [facility] Care Team (unrecognized sect ion and content) Team Status: Active Member Role Status Dates Judi Youssef MAINTENANCE OPERATOR-C Primary Care Provider Active Team Status: Active Member Role Status Dates Judi Youssef NP-C Primary Care Provider Active Start: April 13, [...] Inactive Member Role Status Dates Judi Youssef MAINTENANCE OPERATOR-C Primary Care Provider Active Pete Thakkar DO Emergency Provider Active Salt Cutter Relationship Specialty Start Date End NyJoel Onel PCP - General Family Medicine 04/26/18 Rafa Rangel [address] [facility] [address] [place] [address] Referring General Surgery 04/26/18 Salt Cutter Relationship Specialty Start Date End Date DomenicoJoel blanco Onel PCP - General Family Medicine 04/26/18 Rfaa Rangel [address] [facility] [address] [place] [phone] Referring General Surgery 04/26/18 Salt Cutter Relationship Specialty Start Date End Date Joel Alejandra PCP - General Family Medicine 04/26/18 Rafa Rangel [address] [place] [address] [address] [place] [address] Referring General Surgery 04/26/18 Salt Cutter Relationship Specialty Start Date End Date Joel Alejandra PCP - General Family Medicine 04/26/18 Rafa Rangel [address] [facility] [address] [place] [address] Referring General Surgery 04/26/18 Salt Cutter Relationship Specialty Start Date End Date Joel Alejandra PCP - General Family Medicine 04/26/18 Rafa Rangel [address] [facility] [address] [place] [phone] Referring General Surgery 04/26/18 Salt Cutter Relationship Specialty Start Date End Date Joel Alejandra PCP - General Family Medicine 04/26/18 Rafa Rangel [address] [facility] [address] [place] [phone] Referring General Surgery 04/26/18 Salt Cutter Relationship Specialty Start Date End Date DomenicoJoel blanco Onel PCP - General Family Medicine 04/26/18 Rafa Rangel [address] [place], [place] [address] [facility] [address] [place] [phone] Referring General Surgery 04/26/18 Salt Cutter Relationship Specialty Start Date End Date Joel Alejandra PCP - General Family Medicine 04/26/18 Rafa Rangel [address] [place], [place] [address] [facility] [address] [place] [phone] Referring General Surgery 04/26/18 Salt Cutter Relationship Specialty Start Date End Date DomenicoJoel blanco Onel PCP - General Family Medicine 04/26/18 Rafa Rangel [address] [facility] [address] [place] [phone] Referring General Surgery 04/26/18 Salt Cutter Relationship Specialty Start Date End Date Joel Alejandra PCP - General Family Medicine 04/26/18 Rafa Rangel [address] [place] [phone] Referring General Surgery 04/26/18 Salt Cutter Relationship Specialty Start Date End Date Joel Alejandra PCP - General Family Medicine 04/26/18 Rafa Rangel [address] [place] [phone] Referring General Surgery 04/26/18 Salt Cutter Relationship Specialty Start Date End Date Unallocated, Miracle Jesus MD [address] [place] [address] PCP - General 04/25/23 Judi Youssef MD [address] [place] [address] Referring Physician Family Medicine 04/25/23 Salt Cutter Relationship Specialty Start Date End Date Unallocated, Miracle Jesus MD [address] [place] [address] PCP - General 04/25/23 Judi Youssef MD [address] [place] [address] Referring Physician Family Medicine 04/25/23 Salt Cutter Relationship Specialty Start Date End Date Unallocated, Miracle Jesus MD [facility] [place] [address] PCP - General 04/25/23 Judi Youssef MD [address] [place] [address] Referring Physician Family Medicine 04/25/23 Salt Cutter Relationship Specialty Start Date End Date Unallocated, Miracle Jesus MD [address] [place] [address] PCP - General 04/25/23 Judi Youssef MD [address] [place] [address] Referring Physician Family Medicine 04/25/23 Salt Cutter Relationship Specialty Start Date End Date No, Pcp PCP - General 08/17/24 Salt Cutter Relationship Specialty Start Date End Date Judi Youssef S, LABORATORY HELPER - APPEALS SPECIALIST [address] [place] [address] PCP - General 08/29/24 Salt Cutter Relationship Specialty Start Date End Date Unallocated, Miracle Jesus MD [address] [place] [address] PCP - General 04/25/23 Judi Youssef MD [address] [place] [address] Referring Physician Family Medicine 04/25/23 Nikki Ayoub PA [address] [address] Physician Cemetery Workers Supervisor Neurology 11/26/24 Team Status: Inactive Member Role Status Dates Nicanor Perez MD Attending Provider Active Start : December 18, 2024 End: December 18, 2024 Salt Cutter Relationship Specialty Start Date End Date Unallocated, Miracle Jesus MD [address] [place] [address] PCP - General 04/25/23 Judi Youssef MD [address] [place] [address] Referring Physician Family Medicine 04/25/23 Nikki Ayoub PA [address] [place] [address] Physician Cemetery Workers Supervisor Neurology 11/26/24 Salt Cutter Relationship Specialty Start Date End Date Unallocated, Miracle Jesus MD [address] [place] [address] PCP - General 04/25/23 Judi Youssef MD [address] [place] [address] Referring Physician Family Medicine 04/25/23 Nikki Ayoub PA [address] [place] [id number] Physician Cemetery Workers Supervisor Neurology 11/26/24 Goals (unrecognized section and content) Goals may be documented in a n alternate section REASON FOR VISIT (unrecogniz ed section and content) Reason Comments 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 Onset Date Comments Procedure 05/25/2023 Manometry Esopha geal Specialty Diagnoses / Procedures Referred By Contac t Referred To Contact [facility] Diagnoses Nausea Procedures MANOMETRY ESOPHAGEAL ESOPHAGEAL MOTILITY STUDY W/INTERP&RPT Marques Bradley MD [address] [place] [address] [facility] [address] [place] [address] Referral ID Status Reason Start Date Expiration Date V isits Requested Visits Authorized [id number] Closed Auto-Generate d Referral 05/16/2023 05/16/2024 1 1 Reason Comments Results Reason Comments Patient Education Assessment Reason Comments Hypoglycemia NEW Reason Comments Hypoglycemia Specialty Diagnoses / Procedures Referred By Contac t Referred To Contact Diagnoses Other dysphagia Other dysphagia [R13.19] Procedures WV EGD TRANSORAL BIOPSY SINGLE/MULTIPLE WV ESOPHAGOGASTRODUODENOSCOPY TRANSORAL DIAGNOSTIC WV EGD BALLOON DILATION ESOPHAGUS <30 MM DIAM ESOPHAGOGASTRODUODENOSCOPY BIOPSY Jose Miguel Lucero MD [address] [place] [address] [facility] [address] [place] [address] Referral ID Status Reason Start Date Expiration Date Visits Re quested Visits Authorized [id number] 1 1 Reason Comments Abdominal Pain Specialty Diagnoses / Procedures Referred By Eileen t Referred To Contact Diagnoses Ileus (HCC) Intestinal obstruction (HCC) Obdulio Justice MD [address] [facility] [address] [place] [address] Referral ID Status Reason Start Date Expiration Date Visits Re quested Visits Authorized [id number] 1 1 Reason Comments Hospital Follow-up Reason Comments Seizures Source Comments (unrecognize d section and content) In the event this informatio n is protected by the Federal Confidentiality of Alcohol and Drug Abuse Patient Records regulations: The Federal rules restrict any use of the information to criminally investigate or prosecute any alcohol or drug abuse patient.[facility] the event this information is protected by the Federal Confidentiality of Alcohol and Drug Abuse Patient Records regulations: The Federal rules restrict any use of the information to criminally investigate or prosecute any alcohol or drug abuse patient.[facility] the event this information is protected by the Federal Confidentiality of Alcohol and Drug Abuse Patient Records regulations: The Federal rules restrict any use of the information to criminally investigate or prosecute any alcohol or drug abuse patient.[facility] the event this information is protected by the Federal Confidentiality of Alcohol and Drug Abuse Patient Records regulations: The Federal rules restrict any use of the information to criminally investigate or prosecute any alcohol or drug abuse patient.[facility] the event this information is protected by the Federal Confidentiality of Alcohol and Drug Abuse Patient Records regulations: The Federal rules restrict any use of the information to criminally investigate or prosecute any alcohol or drug abuse patient.[facility] the event this information is protected by the Federal Confidentiality of Alcohol and Drug Abuse Patient Records regulations: The Federal rules restrict any use of the information to criminally investigate or prosecute any alcohol or drug abuse patient.[facility] the event this information is protected by the Federal Confidentiality of Alcohol and Drug Abuse Patient Records regulations: The Federal rules restrict any use of the information to criminally investigate or prosecute any alcohol or drug abuse patient.[facility] the event this information is protected by the Federal Confidentiality of Alcohol and Drug Abuse Patient Records regulations: The Federal rules restrict any use of the information to criminally investigate or prosecute any alcohol or drug abuse patient.[facility] the event this information is protected by the Federal Confidentiality of Alcohol and Drug Abuse Patient Records regulations: The Federal rules restrict any use of the information to criminally investigate or prosecute any alcohol or drug abuse patient.[facility] the event this information is protected by the Federal Confidentiality of Alcohol and Drug Abuse Patient Records regulations: The Federal rules restrict any use of the information to criminally investigate or prosecute any alcohol or drug abuse patient.[facility] the event this information is protected by the Federal Confidentiality of Alcohol and Drug Abuse Patient Records regulations: The Federal rules restrict any use of the information to criminally investigate or prosecute any alcohol or drug abuse patient.[facility] the event this information is protected by the Federal Confidentiality of Alcohol and Drug Abuse Patient Records regulations: The Federal rules restrict any use of the information to criminally investigate or prosecute any alcohol or drug abuse patient.[facility] Scheduled Active and Recently Administ [...] Change - Provider: Chung Renee APRN - ELECTROENCEPHALOGRAM TECHNOLOGIST) PRN Medication Order 08/15/2024 08/16/2024 08/17/2024 0.9 [...] Enedina Madden RN) 0942 (Given - Provider: Bobbi Renee, VICKY) enoxaparin (LOVENOX) injection 40 mg [...] Enedina Madden RN) 0942 (Given - Provider: Bobbi Renee RN) ketorolac (TORADOL) injection 30 mg [...] Bere Armstrong MD) 0942 (Given - Provider: Bobbi Renee, VICKY) metoclopramide (REGLAN) injection 10 mg [...] Sky Pearce MD) 0942 (Given - Provider: Bobbi Renee RN) pantoprazole (PROTONIX) 40 mg in sodium chloride (PF) 0.9 % 10 mL injection (CANCELED) 40 mg, IntraVENous, DAILY, First dose on Tue08/29/24 at 0900, Reconstitute with 10 mL 0.9 % sodium chloride and administer over at least 2 minutes. 0740 (Given - Provider: Enedina Madden RN) 0926 (Not Given - Provider: Bobbi Renee RN - Reason: Other - Comment: [...] Enedina Madden RN) 0942 (Given - Provider: Bobbi Renee RN) potassium chloride 10 mEq/100 mL [...] Cady Oconnor RN) 0942 (Given - Provider: Bobbi Renee, VICKY)2099 (Due) sertraline (ZOLOFT) tablet 50 mg 50 mg, Oral, DAILY, First dose on Tue08/28/24 at 1545, Until Discontinued 151 (Held by provider - Provider: Chad Mlcaughlin MD - Reason: Other - Comment: NPO)1545 (Automatically Held) 0900 (Automatically Held)2110 (Unheld by provider - Provider: Sky Pearce MD) 0942 (Given - Provider: Bobbi Renee RN) sodium chloride flush 0.9 % [...] IV Fluid Infusing) 0942 (Given - Provider: Bobbi Renee RN)2099 (Due) Continuous Medication Order 08/28/2024 08/29/2024 08/30/2024 0.9 % sodium chloride infusion (CANCELED) IntraVENous, at 75 mL/hr, CONTINUOUS, Starting on Tue08/28/24 at 1545 1542 (New Bag - Provider: Maine Espinoza, RN)1542 (Rate/Dose Verify - Provider: Brown Richard RN)1548 (Paused - Provider: Brown Richard RN)1552 (Restarted - Provider: Brown Richard RN)1554 (Paused - Provider: Brown Richard RN)1733 (Restarted - Provider: Brown Richard RN)2341 (Rate/Dose Verify - Provider: Brown Richard RN) 0610 (Rate/Dose Change - Provider: Bronw Richard RN)0610 (Stopped - Provider: Brown Richard [...] not administer for more than 5 days. 2314 (Given - Provider: Brown Richard RN) 0640 (Given - Provider: Enedina Madden RN)1418 (Given [...] Midline or Central Line = 20 mL/lumen 9891 (Given - Provider: Brown Richard RN) Linked [...] BE BASED ON THE PRIMARY CLINICAL RECORDS. [employer] provides no warranty or guarantee of the accuracy or completeness of information in this document.
--- NOTE | 2025-02-08 04:15 | ED.ABDPAIN1 ---
HPI - Abdominal Pain General Chief Complaint: Abdominal Pain Stated Complaint: POSS BOWEL OBSTRUCT Time Seen by Provider: 02/08/25 04:12 Source: patient Mode of arrival: walk-in Limitations: no limitations History of Present Illness HPI narrative: abdominal pain for past week. Presents now concerned she may have bowel obstruction. last meal 1AM. Nausea but no vomiting. Has been passing her bowels. No fever or respiratory symptoms Related Data Home Medications ?Medication ?Instructions ?Recorded ?Confirmed pantoprazole 40 mg tablet,delayed 40 mg PO DAILY 12/15/23 02/08/25 release cholecalciferol (vitamin D3) 50 50 mcg PO DAILY 04/13/24 02/08/25 mcg (2,000 unit) capsule metoprolol succinate 50 mg 50 mg PO DAILY 04/13/24 02/08/25 tablet,extended release 24 hr sertraline 50 mg tablet 50 mg PO DAILY 04/13/24 02/08/25 acarbose 25 mg tablet 25 mg PO BID 12/18/24 02/08/25 aspirin 81 mg tablet,delayed 81 mg PO DAILY 12/18/24 02/08/25 release levetiracetam 750 mg tablet 1,000 mg PO Q12H 12/18/24 02/08/25 multivitamin with folic acid 400 1 tab PO DAILY 12/18/24 02/08/25 mcg tablet (Daily-Reena (with folic acid)) promethazine 25 mg tablet 25 mg PO Q6H PRN nausea and 12/18/24 02/08/25 vomiting lisinopril 40 mg tablet 40 mg PO DAILY 02/08/25 02/08/25 metoclopramide HCl 5 mg tablet mg 02/08/25 Previous Rx's ?Medication ?Instructions ?Recorded ondansetron 4 mg disintegrating 4 mg PO Q8H PRN nausea and 04/13/24 tablet vomiting 3 days #10 tabs Allergies Allergy/AdvReac Type Severity Reaction Status Date / Time cyclobenzaprine (From Allergy Severe Anaphylaxis Verified 02/08/25 03:59 Flexeril) Penicillins Allergy Intermediate Hives Verified 02/08/25 03:59 Review of Systems ROS Status of ROS 10 or more systems reviewed and unremarkable except as noted in history and below [facility] [place] [facility] History (Updated 02/08/25 @ 07:01 by Adithya Quiros MD) Partial obstruction of small intestine ?K56.600 - Partial intestinal obstruction, unspecified as to cause (ICD-10) Constipation ?K59.00 - Constipation, unspecified (ICD-10) Ileus ?K56.7 - Ileus, unspecified (ICD-10) Nausea and vomiting ?R11.2 - Nausea with vomiting, unspecified (ICD-10) GERD (gastroesophageal reflux disease) ?K21.9 - Gastro-esophageal reflux disease without esophagitis (ICD-10) Elevated troponin ?R77.8 - Other specified abnormalities of plasma proteins (ICD-10) Chronic upper abdominal pain ?R10.10 - Upper abdominal pain, unspecified (ICD-10) ?G89.29 - Other chronic pain (ICD-10) Epigastric abdominal pain ?R10.13 - Epigastric pain (ICD-10) Abdominal pain, chronic, generalized ?R10.84 - Generalized abdominal pain (ICD-10) ?G89.29 - Other chronic pain (ICD-10) Headache, migraine ?G43.909 - Migraine, unspecified, not intractable, without status migrainosus (ICD-10) Gastroparesis ?K31.84 - Gastroparesis (ICD-10) Mitral valve disorder ?I05.9 - Rheumatic mitral valve disease, unspecified (ICD-10) Surgical History 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 ?K95.89 - Other complications of other bariatric procedure (ICD-10) ?K22.4 - Dyskinesia of esophagus (ICD-10) History of hernia surgery ?Z98.890 - Other specified postprocedural states (ICD-10) ?Z87.19 - Personal history of other diseases of the digestive system (ICD-10) FH: cholecystectomy ?Z83.79 - Family history of other diseases of the digestive system (ICD-10) H/O: hysterectomy ?Z90.710 - Acquired absence of both cervix and uterus (ICD-10) Family History Father Family history of myocardial infarction Family history of cancer Grandmother Family history of diabetes mellitus Family history of stroke Sister Family history of hypertension Social History Within the past year, how often did you have a drink containing alcohol: never Within the past year, how many standard drinks containing alcohol did you have on a typical day: 1 or 2 Within the past year, how often did you have six or more drinks on one occasion: never Total score: 0 Score interpretation: A score less than 3 is consistent with normal alcohol consumption. 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 Known occupational exposures/hazards: No Highest level of school completed/degree received: high school graduate Do you want help with school or training: No Are you now , , , , never or living with a partner: In a typical week, how many times do you talk on the telephone with family, friends, or neighbors: 3 or more times per week How often do you get together with friends or relatives: 3 or more times per week How often do you attend latter day or congregational services: never Do you belong to any clubs or organizations such as latter day groups unions, [employer] or athletic groups, or school groups: no Total score: 2 Score interpretation: A score of greater than or equal to 2 indicates the lowest level of social isolation. Little interest or pleasure in doing things: not at all Feeling down, depressed, or hopeless: not at all Feel stressed/tense/nervous/anxious/difficulty sleeping: not at all Due to disability, difficulty making decisions: No Do you think of yourself as: straight/heterosexual Gender Identity: female Exam Constitutional Vital Signs, click to edit/add: Last Vital Signs Temp 97.7 F 02/08/25 03:49 Pulse 90 02/08/25 03:49 Resp 20 02/08/25 03:49 BP 155/106 H 02/08/25 03:49 Pulse Ox 97 02/08/25 03:49 O2 Del Method Room Air 02/08/25 03:49 Common normals: average body habitus, oriented x3, no limitations, healthy appearing, alert and well nourished General appearance: in distress (mild) HENMT Common normals: normocephalic and head/scalp atraumatic Eye Common normals: EOMs intact bilaterally and conjunctivae normal Respiratory Common normals: normal respiratory effort, no retractions, no use of accessory muscles and clear to auscultation bilaterally Cardio Common normals: regular rate, regular rhythm, S1 normal heart sound and S2 normal heart sound GI Common normals: Normal to inspection, nondistended, normoactive bowel sounds present Other: not distended. Gen. mod tenderness Extremity Common normals: normal to inspection and full ROM Neuro Common normals: oriented x3, CN's II-XII intact bilaterally, moves all extremities and no focal motor deficits Psych Appearance: grossly normal Course Vital Signs Vital signs: Vital Signs Temperature 97.7 F 02/08/25 03:49 Pulse Rate 90 02/08/25 03:49 Respiratory Rate 20 02/08/25 03:49 Blood Pressure 155/106 H 02/08/25 03:49 Pulse Oximetry 97 02/08/25 03:49 Oxygen Delivery Method Room Air 02/08/25 03:49 Temperature 97.7 F 02/08/25 03:49 Pulse Rate 90 02/08/25 03:49 Respiratory Rate 20 02/08/25 03:49 Blood Pressure 155/106 H 02/08/25 03:49 Pulse Oximetry 97 02/08/25 03:49 Oxygen Delivery Method Room Air 02/08/25 03:49 MDM - Abdominal Pain MDM Narrative Medical decision making narrative: feeling better after zofran. labs acceptable. CT without acute changes. Patient has reglan and zofran at home. Provided a work note and discharged home Lab Data Labs: Lab Results 02/08/25 Range/Units 04:10 WBC 5.6 (4.0-11.0) 10^3/uL RBC 4.38 (4.20-5.40) 10^6/uL Hgb 12.9 (12.0-16.0) g/dL Hct 39.3 (36.0-48.0) % MCV 89.7 (81.0-99.0) fL MCH 29.5 (26.7-34.0) pg MCHC 32.8 (29.9-35.2) g/dL RDW 12.7 (11.0-15.0) % Plt Count 347 (150-450) 10^3/uL MPV 9.4 L (9.5-13.5) fL Neut % (Auto) 60.4 (43.0-75.0) % Lymph % (Auto) 28.6 (20.5-60.0) % Catron % (Auto) 6.4 (1.7-12.0) % Eos % (Auto) 3.9 (0.9-7.0) % Baso % (Auto) 0.5 (0.2-2.0) % Neut # (Auto) 3.4 (1.4-6.5) 10^3/uL Lymph # (Auto) 1.6 (1.2-3.8) 10^3/uL Catron # (Auto) 0.4 (0.3-0.8) 10^3/uL Eos # (Auto) 0.2 (0.0-0.7) 10^3/uL Baso # (Auto) 0.0 (0.0-0.1) 10^3/uL Abs Immat Gran (auto) 0.01 (0.00-0.03) 10^3/uL Imm/Tot Granulo (auto) 0.2 (0.0-0.5) % Sodium 144 (136-145) mmol/L Potassium 3.5 (3.5-5.1) mmol/L Chloride 107 (98-107) mmol/L Carbon Dioxide 27.9 (21.0-32.0) mmol/L Anion Gap 12.6 BUN 13.0 (7.0-18.0) mg/dL Creatinine 0.80 (0.55-1.02) mg/dL Est GFR ( Amer) >60 (>=60 mL/min/1.73m^2) Est GFR (Non-Af Amer) >60 (>=60 mL/min/1.73m^2) BUN/Creatinine Ratio 16.2 Glucose 105 (74-106) mg/dL Lactate 1.5 (0.4-2.0) mmol/L Calcium 9.1 (8.5-10.1) mg/dL Total Bilirubin 0.3 (0.2-1.0) mg/dL AST 21 (15-37) U/L ALT 23 (14-59) U/L Alkaline Phosphatase 155 H (46-116) U/L Troponin I High Sens 31.3 (4.0-51.3) pg/mL Total Protein 7.2 (6.4-8.2) g/dL Albumin 3.6 (3.4-5.0) g/dL Globulin 3.6 g/dL Albumin/Globulin Ratio 1.0 Lipase 29.0 (16.0-77.0) U/L Discharge Plan Discharge Chief Complaint: Abdominal Pain Clinical Impression: Abdominal pain Patient Disposition: Home, Self-Care Prescriptions / Home Meds: No Action pantoprazole 40 mg tablet,delayed release (DR/EC) 40 mg PO DAILY metoprolol succinate 50 mg tablet extended release 24 hr 50 mg PO DAILY sertraline 50 mg tablet 50 mg PO DAILY cholecalciferol (vitamin D3) 50 mcg (2,000 unit) capsule 50 mcg PO DAILY ondansetron 4 mg tablet,disintegrating 4 mg PO Q8H PRN (Reason: nausea and vomiting) 3 Days Qty: 10 0RF aspirin 81 mg tablet,delayed release (DR/EC) 81 mg PO DAILY promethazine 25 mg tablet 25 mg PO Q6H PRN (Reason: nausea and vomiting) levetiracetam 750 mg tablet 1,000 mg PO Q12H acarbose 25 mg tablet 25 mg PO BID multivitamin with folic acid [Daily-Reena (with folic acid)] 400 mcg tablet 1 tab PO DAILY lisinopril 40 mg tablet 40 mg PO DAILY metoclopramide HCl 5 mg tablet Print Language: Bengali Instructions: Abdominal Pain (ED) Additional Instructions: follow up with your doctor next week Referrals: Nikki Ayoub PA [Primary Care Provider] - 1 week Discharge Date/Time: 02/08/25 07:19
--- NOTE | 2025-02-08 04:18 | CT_ITS ---
[address] [address] Patient Name: CONSTANTINO CARDOSO MRN: [id number] date: 1970 Sex: F Assigned Patient Location: ED.MAIN Current Patient Location: ED.MAIN Accession/Order Number: [id number] Exam Date: 02/08/2025 06:47 Report Date: 02/08/2025 06:54 At the request of: KATHRIN VANCE MD Procedure: CT abdomen pelvis w con CT abdomen pelvis w con 02/08/2025 5:20 AM SIGNS AND SYMPTOMS: Acute abdominal pain, nausea, loss of appetite TECHNIQUE: Multidetector ct axial images of the abdomen and pelvis were obtained with IV contrast. Multiplanar reformats were performed and reviewed to further define anatomy and possible pathology. CT was performed with one or more of the following dose reduction techniques: Automated exposure control, adjustment of the mA and/or kV according to patient size, or use of iterative reconstruction technique. COMPARISON: 12/18/2024 FINDINGS: Lower Chest: There is a hiatal hernia with gastric fundus in the lower mediastinum. There is scarring in the lung bases. ABDOMEN: Liver: Within normal limits. Bile Ducts: Normal caliber. Gallbladder: Previously removed Pancreas: Within normal limits. Spleen: Within normal limits. Adrenals: Within normal limits. Kidneys: Within normal limits. Pelvis: Reproductive Organs: No pelvic masses. Ureters: Within normal limits. Bladder: Within normal limits. Bowel: Normal caliber. There is a normal appendix in the right upper quadrant. Mesenteric Lymph Nodes: No enlarged mesenteric lymph nodes. Peritoneum: No ascites or free air, no fluid collection. Vessels: within normal limits Retroperitoneum: Within normal limits. Abdominal Wall: Within normal limits. Bones: Degenerative changes are noted in the thoracolumbar spine. There is a dextro convex curvature of the lumbar spine. CT/CT abdomen pelvis w con IMPRESSION: No bowel obstruction or obstructive uropathy. No free fluid or free air. There is a normal appendix in the right lower quadrant. There is evidence of prior cholecystectomy. There is a hiatal hernia with gastric fundus in the lower mediastinum. Impression dictated by: Lopez Benites M.D. 02/08/2025 6:54 AM Dictation Location: [facility] Electronically authenticated by: [id number] Y Date: 02/08/2025 06:54
[2025-02-08 04:27] LABS: Basophils Percent Auto 0.5 % (0.2-2.0); Eosinophils Absolute Auto 0.2 10^3/uL (0.0-0.7); Eosinophils Percent Auto 3.9 % (0.9-7.0); Hematocrit 39.3 % (36.0-48.0); Hemoglobin 12.9 g/dL (12.0-16.0); Immature Granulocytes Abs Auto 0.01 10^3/uL (0.00-0.03); Immature Granulocytes Pct Auto 0.2 % (0.0-0.5); Lymphocytes Absolute Auto 1.6 10^3/uL (1.2-3.8); Lymphocytes Percent Auto 28.6 % (20.5-60.0); Mean Corpuscular HGB Conc 32.8 g/dL (29.9-35.2); Mean Corpuscular Hemoglobin 29.5 pg (26.7-34.0); Mean Corpuscular Volume 89.7 fL (81.0-99.0); Mean Platelet Volume 9.4 fL (9.5-13.5); Monocytes Absolute Auto 0.4 10^3/uL (0.3-0.8); Monocytes Percent Auto 6.4 % (1.7-12.0); Neutrophils Absolute Auto 3.4 10^3/uL (1.4-6.5); Neutrophils Percent Auto 60.4 % (43.0-75.0); Platelet Count 347 10^3/uL (150-450); Red Blood Count 4.38 10^6/uL (4.20-5.40); Red Cell Distribution Width 12.7 % (11.0-15.0); White Blood Count 5.6 10^3/uL (4.0-11.0)
[2025-02-08 04:44] LABS: Lactate/Lactic Acid 1.5 mmol/L (0.4-2.0)
[2025-02-08 04:51] LABS: Alanine Aminotransferase 23 U/L (14-59); Albumin Level 3.6 g/dL (3.4-5.0); Alkaline Phosphatase 155 U/L (46-116); Anion Gap 12.6; Aspartate Amino Transferase 21 U/L (15-37); BUN Creatinine Ratio 16.2; Bilirubin Total 0.3 mg/dL (0.2-1.0); Calcium 9.1 mg/dL (8.5-10.1); Carbon Dioxide 27.9 mmol/L (21.0-32.0); Chloride 107 mmol/L (98-107); Estimated GFR (African America >60 (>=60 mL/min/1.73m^2); Estimated GFR (Non-African Ame >60 (>=60 mL/min/1.73m^2); Globulin 3.6 g/dL; Glucose 105 mg/dL (74-106); Potassium 3.5 mmol/L (3.5-5.1); Sodium 144 mmol/L (136-145); Total Protein 7.2 g/dL (6.4-8.2); Troponin I High Sensitivity 31.3 pg/mL (4.0-51.3)
[2025-02-08] MEDS: ONDANSETRON PF 4 MG/2 ML VIAL IV (04:59)
[2025-02-08] MEDS: 0.9 % SODIUM CHLORIDE 1,000 ML 999 ML IV (04:59)
--- NOTE | 2025-02-08 13:35 | PC.NURSE ---
Carlota Perez noted that this patient's CT report was read initially by Bel Young and then sent to [facility]iology. There is discrepancies in the CT report. Dr. Estrella notified. Carlota was asked to speak [place] [facility] [place]. Carlota speaks with Dr. Benites and he reports that partial small bowel obstruction on the [facility] report was overcalled and there is nothing to be concerned about. Kidney cyst on the [facility] report is of no concern and doesn't need action per Dr. Quigley . Dr. Estrella notified, of this and asked for this to be documented in the chart. Please note that the [facility] report was the report available with the MDM was made when discharging the patient.s
== END 2025-02-08 07:19 | disposition home or self-care (01) ==
PROVIDERS: Emergency Provider Internal Medicine; PCP Physician Assistant
DX: R10.9 Unspecified abdominal pain (principal); Z90.710 Acquired absence of both cervix and uterus; Z87.891 Personal history of nicotine dependence
CPT/HCPCS: 36415; 74177; 80053; 83605; 83690; 84484; 85025; 96374; 99285; J2405; Q9967

== ENCOUNTER 2025-02-26 22:53 | Outpatient (OUT) | payer BC, SELFPAY ==
--- OUTSIDE RECORDS SUMMARY | 2025-02-26 22:57 | XMS_ITS | CCD ---
Author Organization [facility] Care Team Providers Care Job Analyst Name Role Phone LEONA MORTENSEN Admitting Unavailable LEONA MORTENSEN Attending Unavailable KEVIN HERRERA Primary Care Unavailable KEVIN HERRERA Referring Unavailable GA Procedure Practitioner Unavailab ORESTES Cruz Surgeon Unavailable JUDI YOUSSEF Primary Care Physician DONI Youssef Primary Care Provider DO Conner Griffith Emergency Provider Jennie Ayon Unavailable MD Jennie Ayon Attending Provider [phone] JOHNATHAN RUDOLPH Attending Unavailibis RUDOLPH, [...] LINDA Youssef-C Judi Joan Primary Care Provider DO Conner Griffith Emergency Provider Bijan Pete [place] Emergency Provider [facility], Hope Onel Primary Care Provider Rafa Rangel Unavailable Renny Omalley Unavailable MARQUES BRADLEY Referring Unavailable [facility] Primary Care Unavailable [facility] Primary Care Unavailable KROH, MARQUES Patel Referring Unavailable KROH, MARQUES Patel Attending Unavailable IMER CHERRY Referring Unavailable [facility] Primary Care Unavailable [facility] Primary Care Unavailable KROH, MARQUES Patel Referring Unavailable OLIVER TORRES Attending Unavailable KROHMARQUES Referring Unavailable [facility] Primary Care Unavailable AMERICO MONTALVO Attending Unavailable KROHMARQUES Referring Unavailable [facility] Primary Care Unavailable SLYSLY Attending Unavailable KROHMARQUES Referring Unavailable [facility] Primary Care Unavailable BRENNEN SHAW Attending Unavailable Orzech, Yolanda X Attending Unavailable Orzech, Yolanda X Admitting Unavailable DONI Youssef Judi Franco Primary Care Provider [phone] MD Jennie Ayon Attending Provider Unallocated , [place] Provider Primary Care Provi christine Judi Youssef MD Unavailable No, Pcp Primary Care Provider Unavailabl e JANUSZ AIJAZ Admitting Unavailable JANUSZTHOMASJAZ Attending Unavailable NO, PCP Primary Care Unavailable Regina VASCULAR RADIOLOGIST - REJI, Judi S Primary Care Provide r MIGUEL WILD Consulting Unavailable AVASTHI, OBDULIO Admitting Unavailable AVASTHI, OBDULIO Attending Unavailable EWELINA YOUSSEFELA S Primary Care Unavailable AVASTHI, OBDULIO Consulting Unavailable Eliezer Lorenzo Admitting Unavailable Eliezer Lorenzo Attending Unavailable Dasha Yolanda X Attending Unavailable Rush Padilla Consulting Unavailable Chloe, MD Rush Consulting Unavailable Chloe, Rush Consulting Unavailable Chloe, Rush Consulting Unavailable Chloe, Rush Consulting Unavailable Chloe, Rush Consulting Unavailable Chloe, Rush Consulting Unavailable Chloe, Rush Consulting Unavailable Chloe, Rush Consulting Unavailable Eliezer Lorenzo Admitting Unavailable Eliezer Lorenzo Attending Unavailable Randy Rush Diann Unavailable MD Rush Padilla Consulting Unavailable Chloe, Rush Consulting Unavailable Chloe, Rush Consulting Unavailable Chloe, Rush Consulting Unavailable Chloe, Rush Consulting Unavailable Chloe, Rush Consulting Unavailable Chloe, Rush Consulting Unavailable Chloe, Rush Consulting Unavailable Nikki Zhang Unavailable Yolanda Lou Attending Unavailable Orapryl, Yolanda X Admitting Unavailable Orzeshantel, Yolanda Tejada Attending Unavailable Nicanor Perez MD Attending Provider [phone] Asaad, Imad Admitting Unavailable Asaad, Imad Attending Unavailable Judi Youssef Primary Care Unavailable Nicanor Perez Admitting Unavailable Nicanor Perez Attending Unavailable Asaad, Imad Admitting Unavailable Asaad, Imad Attending Unavailable Judi Youssef Primary Care Unavailable NIKKI AYOUB Attending Unavailable NIKKI AYOUB Attending Unavailable COSME, AHMAGabriel F Attending Unavailable COSME, AHMAD F Referring Unavailable COSME, AHMAD F Attending Unavailable SANJIVEDISON Attending Unavailable SANJIVEDISON Attending Unavailable EDISON KINCAID Attending Unavailable EDISON KINCAID Attending Unavailable EDISON KINCAID Attending Unavailable Prosper Bergman Attending Unavailable Prosper Bergman Attending Unavailable Allergies Allergy Classification Reported Allergen(s) Allergy Type Date of Onset Reaction(s) Facility (10 sources) cyclobenzaprine; Translations: [CYCLOBENZAPRINE] Drug Allergy 04-28-20 18 Swelling of Lip/Tongue/Thr oat, Swelling of Lip/Tongue/Thr oat, throat swelling [facility] Rep[facility] (11 sources) Penicillins; Translations: [PENICILLINS] Drug allergy (disorder) 09-02-20 15 Rash [facility] (20 sources) cyclobenzaprine; Translations: [cyclobenzaprine] Drug Allergy 04-28-20 18 Pharyngeal swelling (finding), Swelling, Other (See Comments) [facility] (20 sources) Penicillin; Translations: [penicillin] Drug Allergy 04-28-20 18 Swelling (morphologic abnormality), Swelling [facility] (13 sources) penicillAMINE Drug Allergy 04-26-20 24 [facility] (2 sources) cyclobenzaprine Drug Allergy 03-23-20 16 [facility] Rep[facility] (1 source) traMADol Drug Allergy [facility] (1 source) traMADol Drug Allergy [facility] (11 sources) penicillAMINE Drug Allergy 05-01-20 Rash [facility] (11 sources) Penicillins Drug Allergy 04-28-20 18 Rash, Swelling [facility] (2 sources) Penicillins Propensity to adverse reactions to drug 04-28-20 18 Other (See Comments), Rash, Swelling [facility] (1 source) cyclobenzaprine Drug Allergy 05-01-[address] [facility] Repository (1 source) penicillAMINE Drug Allergy 05-01-[address] [facility] Repository (1 source) Penicillins Drug allergy (disorder) 05-01-[address] [facility] Repository Medications Current Medications Medication Drug Class(es) Dates Sig (Normalized) Sig (Original) acarbose 25 mg oral tablet (11 sources) alpha-Glucosidase Inhibitor Start: 07-13-2024 End: 07-13-2025 take 1 tablet by mouth once daily acarbose 25 mg oral tablet 25 mg = 1 tab(s), Oral, Daily, Refills(s) 0 Start Date: 10/19/24 Status: Ordered Repeat number: 1 Start: 07-13-2024 End: 07-13-2025 take 1 tablet by mouth twice daily acarbose (PRECOSE) 25 MG tablet Take 1 tablet by mouth 2 times daily 07/16/2024 Active Acetaminophen (14 sources) Start: 08-28-2024 acetaminophen (TYLENOL) tablet 650 mg Start: 01-16-2020 take 1 tablet by ana th every four hours as needed for pain Tylenol 325 mg Tab 325 mg = 1 tab(s), Oral, q4hr, PRN Pain, Refills(s) 0 Start Date: 01/16/20 Status: Ordered Repeat number: 1 Indications: Unspecified abdominal pain; acetaminophen 325 mg / butalbital 50 mg [...] aspirin 81 mg delayed release oral tablet (7 sources) Platelet Aggregation Inhibitor, Nonsteroidal Anti-inflammatory Drug Start: 10-20-2024 take 1 tablet by mouth once daily aspirin 81 mg Oral EC Tab 81 mg = 1 tab(s), Oral, Daily, # 30 tab(s), Refills(s) 0, Pharmacy: [facility]/pharmacy #[id number], 170.2, cm, 10/19/24 17:25:00 EST, Height/Length Dosing, 90.5, kg, 10/19/24 17:25:00 EST, Weight Dosing Start Date: 10/20/24 Status: Ordered Quantity: 30.0 Unit: tab(s) Repeat number: 1 azithromycin 250 mg oral tablet (3 sources) [...] 05/01/2024 Active estradiol 0.1 mg/ml vaginal cream (5 sources) Estrogen Start: 02-16-2024 Estrace 0.1 mg/g Cream 1 gm, Vaginal, As Directed, 42.5 gm, Refill(s) 3, Apply pea-sized amount around urethra every night x 3 weeks, then 2 times weekly for maintenance, [facility]/pharmacy #[id number], 170, cm, 02/16/24 9:10:00 EDT, Height/Length Dosing, 81.7, kg, 02/16/24 9:10:00 EDT, Weight Dosing Start Date: 02/16/24 Status: Ordered Quantity: 42.5 Unit: g Repeat number: 4 Indications: Urinary tract infection, site not specified; famotidine 20 mg oral tablet (17 sources) Histamine-2 Receptor Antagonist Start: 01-28-2022 End: 04-28-2022 take 1 tablet by mouth once daily at bedtime Pepcid 20 mg Tab 20 mg = 1 tab(s), Oral, Once a day (at bedtime), X 90 day(s), # 90 tab(s), Refills(s) 0, Pharmacy: [facility]/pharmacy #[id number], 170, cm, 01/28/22 13:40:00 EDT, [...] Start: 08-28-2024 levETIRAcetam 1000 mg oral tablet (11 sources) Start: 01-07-2025 take 1 tablet by [...] BID, # 60 tab(s), Refills(s) 0, Pharmacy: [facility]/pharmacy #[id number], 170.2, cm, 10/19/24 17:25:00 EST, Height/Length Dosing, 90.5, kg, 02/14/25 17:25:00 EST, Weight Dosing Start Date: 10/20/24 Status: Ordered Quantity: 60.0 Unit: tab(s) Repeat number: 1 10 ml lidocaine hydrochloride 10 mg/ml injection (13 sources) Antiarrhythmic, Amide Local Anesthetic Start: 08-17-2024 End: 08-18-2024 take 1 dose intravenously once daily 1 mL, IntraDERmal, ONCE PRN, 1 dose, Starting on Tue08/17/24 at 1120, Until 08/18/24 at 1120, IV start, Pre-op (day of surgery) Start: 04-24-2018 LIDOCAINE VISC OUS 2 % solution lisinopril 10 mg oral tablet (20 sources) Angiotensin Converting Enzyme Inhibitor Start: 03-19-2024 End: 03-19-2025 take 1 tablet by mouth once daily lisinopril 10 mg Tab 10 mg = 1 tab(s), Oral, Daily, Refills(s) 0 Start Date: 10/19/24 Status: Ordered Repeat number: 1 Start: 03-19-2024 End: 03-19-2025 take 1 tablet by mouth once daily lisinopril 20 MG tablet Take 20 mg by mouth Daily 03/19/2024 03/19/2025 Active 50 ml magnesium sulfate 40 mg/ml injection (1 source) Start: 08-28-2024 24 hr metoprolol succinate 50 mg extended release oral tablet (20 sources) beta-Adrenergic Serena Start: 08-28-2024 take 50 mg by mouth once daily 50 mg, Oral, DAILY, First dose on Tue08/28/24 at 1545, Until Discontinued, Do not crush or chew. Start: 05-01-2024 End: 10-20-2024 take 1 tablet by mouth once daily metoprolol succinate 50 mg ER Tab 50 mg = 1 tab(s), Oral, Daily, Refills(s) 0 Start Date: 10/19/24 Status: Ordered Repeat number: 1 Start: 02-15-2024 End: 02-14-2025 take 1 tablet by mouth every twenty-four hours in the morning metoprolol succinate XL (Toprol-XL) 50 MG 24 hr tablet Take 50 mg by mouth in the morning. 02/15/2024 02/14/2025 Active Multi Vitamins oral tablet (2 sources) Start: 10-20-2024 Multi Vitamins oral tablet 1 tab(s), Oral, Daily, 30 tab(s), Refill(s) 0, [facility]/pharmacy #[id number], 170.2, cm, 10/19/24 17:25:00 EST, Height/Length Dosing, 90.5, kg, 10/19/24 17:25:00 EST, Weight Dosing Start Date: 10/20/24 Status: Ordered Quantity: 30.0 Unit: tab(s) Repeat number: 1 Start: 10-20-2024 Multi Vitamins oral tablet 1 tab(s), Oral, Daily, 30 tab(s), Refill(s) 0, [facility]/pharmacy #[id number], 170.2, cm, 10/19/24 17:25:00 EST, [...] Daily, # 90 cap(s), Refills(s) 3, Pharmacy: [facility]/pharmacy #[id number], 170, cm, 01/11/22 9:17:00 EDT, Height/Length Dosing, 83, kg, 01/11/22 9:17:00 EDT, Weight Dosing Start Date: 01/11/22 Status: Ordered omeprazole 40 mg Cap-DR (1 source) Start: 01-28-2022 End: 04-28-2022 take 1 capsule by mouth once daily omeprazole 40 mg Cap-DR 40 mg = 1 cap(s), Oral, Daily, X 90 day(s), # 90 cap(s), Refills(s) 0, [id number] 170, cm, 01/28/22 13:40:00 EDT, Height/Length Dosing, 84.5, kg, 01/28/22 13:40:00 EDT, Weight Dosing Start Date: 01/28/22 Stop Date: 04/28/22 Status: Ordered ondansetron 4 mg disintegrating oral tablet (20 sources) Serotonin-3 Receptor Antagonist Start: 02-16-2025 End: 02-19-2025 take 1 tablet by mouth every six hours ondansetron 4 mg Dis Tab 4 mg = 1 tab(s), Oral, q6hr, X 3 day(s), # 10 tab(s), Refills(s) 0, [id number], 170.2, cm, 02/16/25 18:59:00 EDT, Height/Length Dosing, 85.2, kg, 02/16/25 18:59:00 EDT, Weight Dosing Start Date: 02/16/25 Stop Date: 02/19/25 Status: Ordered Quantity: 10.0 Unit: tab(s) Repeat number: 1 Start: 02-15-2023 End: 03-23-2023 take 1 tablet by mouth once daily Ondansetron 4 mg tablet,disintegrating Discontinued 4 MG PO Daily February 15, [...] very 8 hours as needed for nausea/vomiting. ondansetron (ZOFRAN-ODT) disintegrating tablet 4 mg (1 source) Start: 2023 ondansetron (ZOFRAN-ODT) disintegrating tablet 4 mg pantoprazole 40 mg delayed release oral tablet (20 sources) Proton Pump Inhibitor Start: 2023 take 40 mg by mouth once daily [...] April 13, 2018 11:34am polyethylene glycol [id number] mg powder for oral solution (9 sources) [...] 2023 12:00am May 11, 2024 8:09am sennosides, care home 8.6 mg oral tablet (3 sources) Start: [...] 08/30/2024 Discontinued sertraline 50 mg oral tablet (19 sources) Serotonin Reuptake Inhibitor Start: 01-29-2024 take 1 tablet by mouth once daily sertraline 50 mg Tab 50 mg = 1 tab(s), Oral, Daily, Refills(s) 0 Start Date: 10/19/24 Status: Ordered Repeat number: 1 sucralfate 100 mg/ml oral suspension (20 sources) Aluminum Complex Start: 02-16-2025 take 1 g by mouth four times daily Carafate 1 g/10 mL Susp-Oral 1 gram = 10 mL, Oral, QID, # 280 mL, Refills(s) 0, Pharmacy: [facility]/pharmacy #[id number], 170.2, cm, 02/16/25 18:59:00 EDT, Height/Length Dosing, 85.2, kg, 02/16/25 18:59:00 EDT, Weight Dosing Start Date: 02/16/25 Status: Ordered Quantity: 280.0 Unit: mL Repeat number: 1 Start: 02-15-2023 End: 05-01-2024 take 1 tablet [...] 8:47pm Symbicort 160/4.5 inhalation aerosol with adapter (11 sources) Start: 01-14-2020 take 2 puff(s) by inhalation twice daily Symbicort 160/4.5 inhalation aerosol with adapter 2 puff(s), Inhalation, BID, Asthma Start Date: 01/14/20 Status: Ordered venlafaxine (8 sources) Serotonin and Norepinephrine Reuptake Inhibitor Venlafaxine HCl ER Active vitamin b12 1 mg oral tablet (2 sources) Vitamin B12 Start: 10-20-2024 take 1 tablet by mouth once daily cyanocobalamin 1000 mcg Tab 1,000 mcg = 1 tab(s), Oral, Daily, # 30 tab(s), Refills(s) 0, Pharmacy: [facility]/pharmacy #[id number], 170.2, cm, 10/19/24 17:25:00 EST, Height/Length Dosing, 90.5, kg, 10/19/24 17:25:00 EST, Weight Dosing Start Date: 10/20/24 Status: Ordered Quantity: 30.0 Unit: tab(s) Repeat number: 1 Zofran ODT 4 mg Tab-Dis (11 sources) Start: 09-20-2020 take 1 tablet by mouth every six hours as needed for nausea Zofran ODT 4 mg Tab-Dis 4 mg = 1 tab(s), Oral, q6hr, PRN Nausea/Vomiting, # 12 tab(s), Refills(s) 0, Pharmacy: [facility]/pharmacy #[id number], 170, cm, 09/20/20 16:03:00 EST, Height/Length Dosing, 87.5, kg, 09/20/20 16:03:00 EST, Weight Dosing Start Date: 09/20/20 Status: Ordered Completed/Discontinued Medications Medication Drug Class(es) Dates Sig (Normalized) Sig (Original) acetaminophen 325 mg / HYDROcodone bitartrate 5 mg oral tablet (14 sources) Opioid Agonist Start: 06-21-2019 End: 02-15-2023 take 1 tablet by mouth every six hours as needed for pain Hydrocodone-Acetami nophen (Butler) 5-325 mg Tablet Discontinued 1 TAB PO Q6H as needed for Pain June 21, 2019 12:00am February 15, 2023 9:46am Start: 11-12-2018 End: 01-30-2019 take 1 tablet by mouth every four to six hours as needed for pain Hydrocodone-Acetaminophen (Butler) 5-325 mg tablet Discontinued 1 TAB PO EVERY 4-6 HOURS as needed for pain 10 3 November 12, 2018 January 30, [...] day(s), # 120 cap(s), Refills(s) 11, Pharmacy: [facility]/pharmacy #[id number], 170, cm, 05/05/21 14:15:00 EDT, Height/Length Dosing, 83.1, kg, 05/05/21 14:15:00 EDT, Weight Dosing Start Date: 05/05/21 Stop Date: 04/30/22 Status: Ordered Start: 09-20-2020 take 2 capsules by m outh four times daily Bentyl 10 mg Cap 20 mg = 2 cap(s), Oral, QID, # 20 cap(s), Refills(s) 0, Pharmacy: [facility]/pharmacy #[id number], 170, cm, 09/20/20 16:03:00 EST, [...] week(s), # 7 cap(s), Refills(s) 0, Pharmacy: [facility]/pharmacy #[id number], 170.2, cm, 10/19/24 17:25:00 EST, [...] TID, # 120 tab(s), Refills(s) 0, [id number] 170, cm, 04/13/21 15:38:00 EDT, Height/Length Dosing, 84.4, kg, 04/13/21 15:38:00 EDT, Weight Dosing Start Date: 04/13/21 Status: Ordered Start: 04-13-2018 take 1 tablet by ana four times daily Reglan 10 mg Tab 10 mg = 1 tab(s), Oral, QID, # 120 tab(s), Refills(s) 0, [id number], 170, cm, 07/22/22 14:33:00 EST, Height/Length [...] day(s), # 90 cap(s), Refills(s) 1, Pharmacy: [facility]/pharmacy #[id number], 170, cm, 04/14/22 14:53:00 EDT, [...] Take 40 mg by mouth once daily. OXcarbazepine 300 mg oral tablet (20 sources) Anti-epileptic Agent Start: 3 End: 4 take 1 tablet by mouth once daily [...] 1 tablet by mouth twice daily Pyridostigmine Chester 60 mg Tablet Discontinued 60 MG PO Twice daily March 31, 2023 12:00am May 01, 2024 [...] = 20 mL/lumen, Pre-op (day of surgery) traMADol hydrochloride 50 mg oral tablet (7 sources) Opioid Agonist Start: 02-27-2019 End: 06-21-2019 take 1 tablet by mouth every four to six hours as needed for pain Tramadol 50 mg tablet Discontinued 50 MG PO EVERY 4-6 HOURS as needed for pain 20 7 February 27, 2019 12:00am June 21, 2019 [...] [Unspecified asthma, uncomplicated] Chronic Biliary tract disease (13 sources) Gallstone 01-08-2020 Episodic Calculus of urinary tract (13 sources) Kidney stone 05-10-2019 Episodic Coagulation and [...] [Hyperlipidemia, unspecified] Onset: 10-19-2024 Chronic Epilepsy; convulsions (18 sources) Seizure; Translations: [Unspecified convulsions] Onset: 10-19-2024 07-10-2020 Episodic Esophageal disorders (20 sources) Pearce's esophagus; Translations: [Pearce's esophagus without dysplasia] Onset: 01-11-2022 Chronic Essential hypertension (20 sources) Hypertensive disorder; Translations: [Essential (primary) hypertension] Onset: 11-30-2022 01-22-2020 Chronic Fluid and electrolyte disorders (8 sources) Dehydration; Translations: [Hypokalemia] Onset: 04-07-2022 08-30-2024 Episodic Gastritis and duodenitis (1 source) Gastritis; Translations: [Gastritis, unspecified, without bleeding] Onset: 02-16-2025 Episodic Genitourinary symptoms and ill-defined conditions (3 sources) Incontinence 02-21-2024 Chronic Genitourinary symptoms and ill-defined conditions (20 sources) History of urinary tract infection; Translations: [Proteinuria] Onset: 11-30-2022 02-24-2021 Episodic Headache; including migraine (20 sources) Migraine; Translations: [Migraine, unspecified, not intractable, without status migrainosus] Onset: 04-07-2022 05-10-2019 Chronic Heart valve disorders (14 sources) Mitral valve prolapse; Translations: [Nonrheumatic mitral [...] B group vitamins] Onset: 10-20-2024 Episodic Osteoarthritis (14 sources) Arthritis; Translations: [Osteoarthritis] Onset: 10-19-2024 05-10-2019 Chronic Other aftercare (1 source) Other senior care (current) drug therapy; Translations: [OTH LONG-TERM CURRENT DRUG THERAPY] Onset: 11-30-2022 Episodic Other aftercare (1 source) Long-term current use of drug therapy; Translations: [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] Onset: 10-19-2024 Episodic Other connective tissue disease (1 source) Facial weakness; Translations: [R29.810] Onset: 10-19-2024 Episodic Other connective tissue disease (1 source) Neurological symptom; Translations: [Unspecified symptoms and signs involving the nervous system] Onset: 10-19-2024 Episodic Other diseases of bladder and urethra (14 sources) Traumatic urethral stricture; 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 [...] [Hypoglycemia, unspecified] 06-20-2024 Chronic Other gastrointestinal disorders (13 sources) Diarrhea 05-26-2021 Episodic Other gastrointestinal disorders (14 sources) Heartburn; Translations: [Heartburn] Onset: 04-14-2022 07-10-2020 Episodic Other gastrointestinal disorders (1 source) Digestive system finding; Translations: [Other specified symptoms and signs involving the digestive system and abdomen] Onset: 04-14-2022 Episodic Other gastrointestinal disorders (9 sources) Irregular bowel habits 04-14-2022 Episodic Other gastrointestinal disorders (14 sources) Constipation; Translations: [Constipation, unspecified] 09-20-2022 Episodic Other gastrointestinal disorders (8 sources) Esophageal dysphagia; Translations: [Dysphagia, unspecified] Episodic Other gastrointestinal disorders (5 sources) Constipation, unspecified; Translations: [CONSTIPATION UNSPECIFIED] Onset: 08-17-2022 Episodic Other gastrointestinal disorders (6 sources) Dark stools 09-20-2022 Episodic Other gastrointestinal disorders (6 sources) Hard stool 09-20-2022 Episodic Other gastrointestinal disorders (15 sources) Dysphagia; Translations: [Dysphagia, unspecified] Onset: 08-15-2024 [...] injuries and conditions due to external causes (13 sources) Bezoar 05-26-2021 Episodic Other injuries and conditions due to external causes (1 source) Foreign body in digestive tract; Translations: [Foreign body in stomach, sequela] Onset: 01-28-2022 Episodic Other injuries and conditions due to external causes (12 sources) Foreign body in stomach; Translations: [Foreign [...] Cmte Other nutritional; endocrine; and metabolic disorders (14 sources) Body mass index 25-29 - overweight; [...] Spondylosis; intervertebral disc disorders; other back problems (6 sources) Backache 09-20-2022 Episodic Sprains and strains [...] [LOW BACK PAIN, UNSPECIFIED] Onset: 04-07-2022 Unclassified (5 sources) Asymptomatic microscopic hematuria 02-16-2024 Urinary tract infections (12 sources) Urinary tract infectious disease; Translations: [Urinary [...] Test Name Value Interpretation Reference Range Facility XR Chest 2 Viewson XR Chest 2 Views Exam Date/Time: 02/16/2025 19:40 EDT Reason for Exam: difficulty swallowing;Other (please specify) Report IMPRESSION: No acute radiographic abnormality. EXAMINATION: XR Chest 2 Views Clinical History: Difficulty swallowing. Comparison: 10/19/2024. RESULT: No focal consolidation. No pleural effusion. No pneumothorax. Stable cardiomediastinal silhouette. No acute osseous findings. Degenerative changes. Hiatal hernia, grossly unchanged. Ordering Provider: Prosper Bergman FINAL REPORT Dictated: 02/17/2025 9:48 am Sheila BAKER, Alden Ochoa Signed (Electronic Signature): 02/17/2025 9:48 am Signed by: Alden Sosa MD Transcribed by: REZA Technologist: KILO Valentin [facility] CBC w/ Auto Diffon 5 Basophil Absolute 0.0 E9/L Normal 0.0-0.2 [facility] Comment on above: Performed By: #### 2 [id number] #### [facility] [address] [place] [address] Basophils/100 WBC (Bld) 0.6 % Normal 0.0-2.0 [facility] Comment on above: Performed By: #### 2 [id number] #### [facility] [address] [place] [address] Eos Absolute 0.3 E9/L Normal 0.0-0.5 [facility] Comment on above: Performed By: #### 2 [id number] #### [facility] [address] [place] [address] Eosinophils/100 WBC (Bld) 5.2 % Normal 0.0-8.0 [facility] Comment on above: Performed By: #### 2 [id number] #### [facility] [address] [place] [address] Erythrocyte distribution width (RBC) [Ratio] 13.5 % Normal 10.9-14.2 [facility] Comment on above: Performed By: #### 2 [id number] #### [facility] [address] [place] [address] Hematocrit (Bld) [Volume fraction] 37.7 % Normal 34.0-46.0 [facility] Comment on above: Performed By: #### 2 [id number] #### [facility] [address] [place] [address] Hemoglobin (Bld) [Mass/Vol] 12.6 g/dL Normal 12.0-16.0 [facility] Comment on above: Performed By: #### 2 [id number] #### [facility] [address] [place] [address] Lymph Absolute 1.7 E9/L Normal 1.0-4.[address] [facility] Comment on above: Performed By: #### 2 [id number] #### [facility] [address] [place] [address] Lymphocytes/100 WBC (Bld) 26.0 % Normal 14.0-50.0 [facility] Comment on above: Performed By: #### 2 [id number] #### [facility] [address] [place] [address] MCH (RBC) [Entitic mass] 29.0 pg Normal 27.0-34.0 [facility] Comment on above: Performed By: #### 2 [id number] #### [facility] [address] [place] [address] MCHC (RBC) [Mass/Vol] 33.5 g/dL Normal 31.4-36.0 [facility] Comment on above: Performed By: #### 2 [id number] #### [facility] [address] [place] [address] MCV (RBC) [Entitic vol] 86.7 fL Normal 80.0-100.0 [facility] Comment on above: Performed By: #### 2 [id number] #### [facility] [address] [place] [address] [place] Absolute 0.5 E9/L Normal 0.2-1.0 [facility] Comment on above: Performed By: #### 2 [id number] #### [facility] [address] [place] [address] Monocytes/100 WBC (Bld) 7.5 % Normal 4.0-14.0 [facility] Comment on above: Performed By: #### 2 [id number] #### [facility] [address] [place] [address] Neutro Absolute 3.9 E9/L Normal 2.0-7.5 [facility] Comment on above: Performed By: #### 2 [id number] #### [facility] [address] [place] [address] Neutro Auto 60.7 % Normal 36.0-75.0 [facility] Comment on above: Performed By: #### 2 [id number] #### [facility] [address] [place] [address] Platelet 357.0 E9/L Normal 150.0-500.0 [facility] Comment on above: Performed By: #### 2 [id number] #### [facility] [address] [place] [address] Platelet mean volume (Bld) [Entitic vol] 7.4 fL Normal 6.4-10.8 [facility] Comment on above: Performed By: #### 2 [id number] #### [facility] [address] [place] [address] RBC 4.3 E12/L Normal 4.3-5.9 [facility] Comment on above: Performed By: #### 2 [id number] #### [facility] [address] [place] [address] WBC 6.5 E9/L Normal 4.0-11.0 [facility] Comment on above: Performed By: #### 2 [id number] #### [facility] [address] [place] [address] CHEMISTRYOrdered By: SYSTEM SYSTEM on 02-16-2025 Albumin [Mass/Vol] 4.3 g/dL Normal 3.3 - 5.0 gm/dL Remisol Chem Albumin/Globulin [Mass ratio] 1.7 {ratio} Normal 1.1 - 2.2 [facility] Chem ALP [Catalytic activity/Vol] 121 [iU]/d High 21 - 98 Int._Unit/L Remisol Chem ALT No additional P-5'-P [Catalytic activity/Vol] 12 [iU]/d Normal 6 - 46 Int._Unit/L Remisol Chem Anion gap [Moles/Vol] 10 mmol/L Normal 6 - 16 mEq/L [facility] Chem AST [Catalytic activity/Vol] 14 [iU]/d Normal 5 - 43 Int._Unit/L [facility] Chem Bilirubin [Mass/Vol] 0.3 mg/dL Normal 0.0 - 1 .1 mg/dL [facility] Chem Calcium [Mass/Vol] 9.3 mg/dL Normal 8.9 - 11. 1 mg/dL [facility] Chem Chloride [Moles/Vol] 107 mmol/L Normal 101 - 1 11 mmol/L [facility] Chem CO2 [Moles/Vol] 26 mmol/L Normal 21 - 31 mmol/L [facility] Chem Creatinine [Mass/Vol] 1.2 mg/dL Normal 0.5 - 1.3 mg/dL [facility] Chem GFR/1.73 sq M.predicted MDRD (S/P/Bld) [Vol rate/Area] 54 mL/min/1.73 m2 Low >=59mL/min/ 1.73 m2 [facility] Chem Globulin (S) [Mass/Vol] 2.6 g/dL Normal 1.4 - 4.0 gm/dL [facility] Chem Glucose [Mass/Vol] 114 mg/dL Normal 55 - 199 mg/dL [facility] Chem Lipase [Catalytic activity/Vol] 28 U/L Normal 13 - 58 unit/L [facility] Chem Potassium [Moles/Vol] 4.1 mmol/L Normal 3.5 - 5.3 mmol/L [facility] Chem Protein [Mass/Vol] 6.9 g/dL Normal 6.0 - 7.8 gm/dL [facility] Chem Sodium [Moles/Vol] 139 mmol/L Normal 135 - 145 mmol/L [facility] Chem Urea nitrogen [Mass/Vol] 21 mg/dL Normal 5 - 21 mg/dL [facility] Chem Urea nitrogen/Creatinine [Mass ratio] 18 mg/mg Normal 10 - 20 Rem[facility] Chem CMPon 02-16-2025 Albumin [Mass/Vol] 4.3 g/dL Normal 3.3-5.0 [facility] Comment on above: Performed By: #### 2 [id number] #### [facility] [address] [place] [address] Albumin/Globulin [Mass ratio] 1.7 {ratio} Normal 1.1-2.2 [facility] Comment on above: Performed By: #### 2 [id number] #### [facility] [address] [place] [address] Alk Phos 121 Int._Unit/L High 21-98 [facility] Comment on above: Performed By: #### 2 [id number] #### [facility] [address] [place] [address] ALT 12 Int._Unit/L Normal 6-[address] [facility] Comment on above: Performed By: #### 2 [id number] #### [facility] [address] [place] [address] Anion gap [Moles/Vol] 10 mmol/L Normal 6-16 [facility] Comment on above: Performed By: #### 2 [id number] #### [facility] [address] [place] [address] AST 14 Int._Unit/L Normal 5-[address] [facility] Comment on above: Performed By: #### 2 [id number] #### [facility] [address] [place] [address] Bili Total 0.3 mg/dL Normal 0.0-1.1 [facility] Comment on above: Performed By: #### 2 [id number] #### [facility] [address] [place] [address] BUN/Creat Ratio 18 No Units Normal 10-20 [facility] Comment on above: Performed By: #### 2 [id number] #### [facility] [address] [place] [address] Calcium [Mass/Vol] 9.3 mg/dL Normal 8.9-11.1 [facility] Comment on above: Performed By: #### 2 [id number] #### [facility] [address] [place] [address] Chloride [Moles/Vol] 107 mmol/L Normal 101-111 [facility] Comment on above: Performed By: #### 2 [id number] #### [facility] [address] [place] [address] CO2 [Moles/Vol] 26 mmol/L Normal 21-31 [facility] Comment on above: Performed By: #### 2 [id number] #### [facility] [address] [place] [address] Creatinine [Mass/Vol] 1.2 mg/dL Normal 0.5-1.3 [facility] Comment on above: Performed By: #### 2 107897 #### [facility] [address] [place] [address] Globulin (S) [Mass/Vol] 2.6 g/dL Normal 1.4-4.0 [facility] Comment on above: Performed By: #### 2 [id number] #### [facility] [address] [place] [address] Glucose [Mass/Vol] 114 mg/dL Normal 55-199 [facility] Comment on above: Performed By: #### 2 135482 #### [facility] [address] [place] [address] Potassium [Moles/Vol] 4.1 mmol/L Normal 3.5-5.3 [facility] Comment on above: Performed By: #### 2 [id number] #### [facility] [address] [place] [address] Protein [Mass/Vol] 6.9 g/dL Normal 6.0-7.8 [facility] Comment on above: Performed By: #### 2 065184 #### [facility] [address] [place] [address] Sodium [Moles/Vol] 139 mmol/L Normal 135-145 [facility] Comment on above: Performed By: #### 2 585391 #### [facility] [address] [place] [address] Urea nitrogen [Mass/Vol] 21 mg/dL Normal 5-21 [facility] Comment on above: Performed By: #### 2 [id number] #### [facility] [address] [place] [address] ED Clinical Summaryon 2024 ED Clinical Summary ED Clinical Summary [address] [address] ED Clinical Summary Person Information Name: MAURY CONSTANTINO [place]on [place] Age: 54 Years : 1970 Sex: Female Language: Ukrainian PCP: JUDI YOUSSEF CNP Marital Status: Phone: [phone] MRN: Visit Id: Visit Reason: Nausea; Abdominal pain; Difficulty swallowing; DIFFICULTY SWALLOWING, NAUSEA Speciality: Acuity: 3 Enc Type: Emergency Med Service: Emergency Arrival: 02/16/2025 18:52:26 Discharge: 02/16/2025 21:01:52 LOS: 000 02:09 Checkin: 02/16/2025 18:52:26 Checkout: 02/16/2025 21:01:52 Dispo Type: Home (Routine DC) EVENTS: Event Name Event Status Request Date/Time Start Date/Time Complete Date/Time Arrive Complete 02/16/2025 18:52:26 02/16/2025 18:52:26 02/16/2025 18:52:26 Document Home Meds Request 02/16/2025 18:52:26 Triage Complete 02/16/2025 18:52:26 02/16/2025 18:59:23 02/16/2025 18:59:23 Registration Complete 02/16/2025 18:55:15 02/16/2025 18:55:15 02/16/2025 18:55:15 Reg Complete Request 02/16/2025 18:55:15 Reg Bed Request Complete 02/16/2025 18:55:15 02/16/2025 18:55:15 02/16/2025 18:55:15 Bed Assign Complete 02/16/2025 18:56:17 02/16/2025 18:56:17 02/16/2025 18:56:17 Dr Exam Complete 02/16/2025 18:56:18 02/16/2025 18:56:54 02/16/2025 18:56:54 RN Exam Complete 02/16/2025 18:56:18 02/16/2025 20:00:09 02/16/2025 20:00:09 Registration Request 02/16/2025 18:56:54 Isolation Screening Request 02/16/2025 18:59:24 Pending Labs Complete 02/16/2025 19:02:30 02/16/2025 19:34:55 Lab Complete 02/16/2025 19:02:30 02/16/2025 19:34:55 Meds Admin Request 02/16/2025 19:02:30 X-Ray Complete 02/16/2025 19:02:30 02/16/2025 19:29:08 02/16/2025 19:40:01 Pending Labs Complete 02/16/2025 19:11:49 02/16/2025 19:11:49 02/16/2025 19:34:55 Lab Complete 02/16/2025 19:11:49 02/16/2025 19:11:49 02/16/2025 19:34:55 Pending Labs Complete 02/16/2025 19:37:53 02/16/2025 19:37:53 02/16/2025 19:37:53 Pending Labs Complete 02/16/2025 19:39:48 02/16/2025 19:39:48 02/16/2025 19:39:48 Wet Read Request 02/16/2025 19:40:01 Meds Admin Complete 02/16/2025 20:04:44 02/16/2025 20:16:12 Discharge Complete 02/16/2025 20:42:08 02/16/2025 21:01:59 02/16/2025 21:01:59 Transfer Complete 02/16/2025 21:01:59 02/16/2025 21:01:59 02/16/2025 21:01:59 ADDRESS: [address] [id number] PHYS DOC NOTES: MEDICAL INFORMATION: Prescriptions Given: New Medications [facility]/pharmacy #[id number], [address] [place], [place] [id number], [phone] ondansetron (ondansetron 4 mg Dis Tab) 1 Tablets By Mouth every 6 hours for 3 Days. Refills: 0. sucralfate (Carafate 1 g/10 mL Susp-Oral) 10 Milliliter By Mouth 4 times a day. Refills: 0. Medications to Continue with No [...] Tablets By Mouth every day. Refills: 0. levetiracetam (Keppra 500 mg Tab) 1 Tablets By Mouth 2 times a day. Refills: 0. lisinopril (lisinopril 10 mg Tab) 1 Tablets By Mouth every day. metoprolol (metoprolol succinate 50 mg ER Tab) 1 Tablets By Mouth every day. multivitamin (Multi Vitamins oral tablet) 1 Tablets By Mouth every day. Refills: 0. sertraline (sertraline 50 mg Tab) 1 Tablets By Mouth every day. PATIENT EDUCATION INFORMATION: Instructions: Follow up: With: Address: When: Rambo Purcell [address] [place] [address], [facility] [address], [address] [address] [phone] Business (1) In 3 days 02/19/2025 With: Address: When: JUDI YOUSSEF [address] [place], [place] [phone] iCIMS (1) In 3 days DIAGNOSIS: Dysphagia; Gastritis Normal [facility] ED Note-Physicianon 02-17-20 ED Note-Physician ED Note-Physician Basic Information Time Seen: Adam CARLINProsper 02/16/2025 18:56 Chief Complaint Abdominal pain, nausea and difficulty swallowing for 3 weeks. Hx of having esophagus dilated. History of Present Illness 58 female presents emergency department with abdominal pain nausea and some difficulty swallowing. Patient states that she does have history of esophageal dilatation also has had a history of hiatal hernia repair. She states of these last 2 to 3 weeks has been dealing with the symptoms try to get into see her GI doctor [facility] a [facility] but was unable to do so she came to the emergency department. Patient does believe that she is on an antiacid but she cannot recall she does not have her medication list with her. She has had some associated nausea and vomiting with this as well denies any diarrhea constipation. Patient has had prior cholecystectomy hernia repair and hysterectomy as well. No other aggravating or relieving factors no other associated symptoms no other prior treatments or complaints. Family: Reviewed and noncontributory Social: lives at home Review of systems negative unless otherwise specified in the HPI. Physical Exam Vitals & Measurements T: 36.3 ???C(Oral) HR: 59(Peripheral) RR: 16 SpO2: 98% HT: 170.2 cm WT: 85.2 kg BMI: 29.41 General: The patient appears well and in [...] distention. No rebound or rigidity. No guarding. Mild tenderness palpation to the mid epigastrium Neurological: A&O moves all extremities equal strength and symmetry. Cranial nerves grossly intact as tested Psychiatric: Cooperative and appropriate Medical Decision Making Workup in the ER has been reviewed and noted. Labs are essentially benign x-rays do reveal hiatal hernia. Patient is able to tolerate p.o. challenge after medication here including Zofran fluids and Protonix. Ultimately should be discharged home on Carafate is continuing her Protonix will be given Zofran as needed for nausea and follow-up with GI she may need EGD and further intervention. She is educated about return precautions specifically esophageal food impaction. Assessment/Plan Dysphagia (R13.10: Dysphagia, unspecified) Gastritis (K29.70: Gastritis, unspecified, without bleeding) Orders: ondansetron, 4 mg = 2 mL, Injection, IV Push, Once, Stop date 02/16/25 19:01:00 EDT, STAT, Start date 02/16/25 19:01:00 EDT, 02/16/25 19:01:00 EDT ondansetron, 4 mg = 1 tab(s), Oral, q6hr, X 3 day(s), # 10 tab(s), Refills(s) 0, Pharmacy: [facility]/pharmacy #[id number], 170.2, cm, 02/16/25 18:59:00 EDT, Height/Length Dosing, 85.2, kg, 02/16/25 18:59:00 EDT, Weight Dosing pantoprazole, 40 mg = 10 mL, Injection, IV Push, Once, Stop date 02/16/25 19:01:00 EDT, STAT, Start date 02/16/25 19:01:00 EDT, 02/16/25 19:01:00 EDT promethazine 25 mg + Sodium Chloride 0.9% intravenous solution 50 mL, IV Piggyback, Once, Stop date 02/16/25 20:04:00 EDT, STAT, Start date 02/16/25 20:04:00 EDT, 153 mL/hr, Infuse over 20 minute(s), 02/16/25 20:04:00 EDT Sodium Chloride 0.9% intravenous solution 1,000 mL, 1,000 mL, IV, 1,000 mL/hr, STAT, Start date 02/16/25 19:01:00 EDT, 1 hour(s), Total volume (mL): 1,000, 85.2 kg, 2.01, m2 sucralfate, 1 gram = 10 mL, Oral, QID, # 280 mL, Refills(s) 0, Pharmacy: [facility]/pharmacy #[id number], 170.2, cm, 02/16/25 18:59:00 EDT, Height/Length Dosing, 85.2, kg, 02/16/25 18:59:00 EDT, Weight Dosing CBC w/ Auto Diff Comprehensive Metabolic Panel eGFR Extra Blue Tube Extra SST Tube Lipase Level XR Chest 2 Views Medications Administered Given Sodium Chloride 0.9% IV Zari 1000 mL 1,000 mL, 1000 mL, IV pantoprazole 40 mg IV Inj, 40 mg, IV Push Sodium Chloride 0.9% IV Zari 50 mL (INT) 50 mL + promethazine additive 25 mg, IV Piggyback Zofran 4 mg/2 mL Injection, 4 mg, IV Push Disposition Plan Discharge Prescription List Prescriptions Carafate 1 g/10 mL Susp-Oral, 1 gm= 10 mL, Oral, QID ondansetron 4 mg Dis Tab, 4 mg= 1 tab(s), Oral, q6hr Follow-up With When Contact Information Rambo Purcell In 3 days 02/19/2025 EDT [address], [address] [address] [phone] Business (1) Additional Instructions: JUDI YOUSSEF In 3 days [address], [place] [address]- [phone] Business (1) Additional Instructions: Problem List/Past Medical History Ongoing Acid reflux Arthritis Asymptomatic microscopic hematuria 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 Normal [facility] Comment on above: Result Comment: Elec tronically Signed By: Prosper Bergman DO\.br\Date and Time Signed: 02/16/25 20:43 EDT ED Patient Education Noteon 02-16-2025 ED Patient Education Note ED Patient Education Note Normal [facility] ED Patient Summaryon 025 ED Patient Summary ED Patient Summary [place] [id number] Patient Discharge Instructions Person Information Name: CONSTANTINO CARDOSO Age: 54 Years Arrival Date: 02/16/2025 18:52:26 Discharge Diagnosis: Dysphagia; Gastritis Primary Care Physician: JUDI YOUSSEF CNP Provider Information Primary Provider: Prosper Bergman DO Advanced Hide Washer:None The exam and treatment you received in the Emergency Department were for an urgent problem and are not intended as complete care. It is important that you follow up with a doctor, nurse practitioner, or physician???s trust operations assistant for ongoing care. If your symptoms become worse or you do not improve as expected and you are unable to reach your usual health care provider, you should return to the Emergency Department. We are available 24 hours a day. CONSTANTINO CARDOSO has been given the following list of patient education materials, prescriptions and follow-up instructions: Follow-up Instructions: With: Address: When: Rambo Purcell [address] [facility], [address], [place] [id number] [phone] Business (1) In 3 days 02/19/2025 With: Address: When: JUDI YOUSSEF [address] [facility] [place] [phone] iCIMS (1) In 3 days In the event that this physician does not participate in your insurance network, please consult with your insurance company to find a nearby participating provider. Patient Education Materials: A MESSAGE TO ALL PATIENTS REGARDING OPIOIDS PRESCRIPTION OPIOIDS: WHAT YOU NEED TO KNOW Prescription opioids can be used to help relieve fugkkhjg-ao-axyblb pain and are often prescribed following a [...] the risks of opioids abuse and overdose. ? (more content not included)... Normal [facility] Extra Blueon 02-16-2025 Tube Collected Plasma Yes Invalid Interpretation Code [facility] Comment on above: Performed By: #### 1 [id number] #### [facility] [address] [place] [address] HEMATOLOGYOrdered By: SYSTEM SYSTEM on 02-16-2025 Basophils/100 WBC (Bld) 0.6 % Normal 0.0 - 2.0 % Remisol Heme Basophils/Leukocytes Auto (Bld) [Pure # fraction] 0.0 E9/L Normal 0.0 - 0.2 E9/L Rem[facility] Heme Eosinophils (Bld) [#/Vol] 0.3 E9/L Normal 0.0 - 0.5 E9/L Rem[facility] Heme Eosinophils/100 WBC (Bld) 5.2 % Normal 0.0 - 8.0 % Rem[facility] Heme Erythrocyte distribution width (RBC) [Ratio] 13.5 % Normal 10.9 - 14.2 % [facility] Heme Hematocrit (Bld) [Volume fraction] 37.7 % Normal 34.0 - 46.0 % Rem[facility] Heme Hemoglobin (Bld) [Mass/Vol] 12.6 g/dL Normal 12.0 - 16.0 gm/dL [facility] Heme Lymphocytes (Bld) [#/Vol] 1.7 E9/L Normal 1.0 - 4.0 E9/L [facility] Lymphocytes/100 WBC (Bld) 26.0 % Normal 14.0 - 50.0 % Rem[facility] Heme MCH (RBC) [Entitic mass] 29.0 pg Normal 27.0 - 34.0 pg Remisol Heme MCHC (RBC) [Mass/Vol] 33.5 g/dL Normal 31.4 - 36.0 gm/dL [facility] Heme MCV (RBC) [Entitic vol] 86.7 fL Normal 80.0 - 100.0 fL [facility] Heme Monocytes (Bld) [#/Vol] 0.5 E9/L Normal 0.2 - 1.0 E9/L [facility] Heme Monocytes/100 WBC (Bld) 7.5 % Normal 4.0 - 14.0 % [facility] Heme Neutrophils (Bld) [#/Vol] 3.9 E9/L Normal 2.0 - 7.5 E9/L [facility] Heme Neutrophils/100 WBC (Bld) 60.7 % Normal 36.0 - 75.0 % [facility] Heme Platelet mean volume (Bld) [Entitic vol] 7.4 fL Normal 6.4 - 10.8 fL Rem[facility] Heme Platelets (Bld) [#/Vol] 357.0 E9/L Normal 150.0 - 500.0 E9/L Rem[facility] Heme RBC (Bld) [#/Vol] 4.3 E12/L Normal 4.3 - 5.9 E12/L [facility] Heme WBC corrected for nucl RBC Auto (Bld) [#/Vol] 6.5 E9/L Normal 4.0 - 11.0 E9/L Rem[facility] Heme Lipase Levelon 02-16-2025 Lipase Lvl 28 unit/L Normal 13-58 [facility] Comment on above: Performed By: #### 2 [id number] #### [facility] [address] [place] [address] eGFRon 02-16-2025 eGFR 54 mL/min/1.73 m2 Low >=59 [facility] Comment on above: Performed By: #### 1 [id number] #### [facility] [address] [place] [address] 36on 06-02-2025 36 Regarding stress robert t result from 01/18/2025: MD Ros Suarez MA Please inform the patient that her stress test is normal. Encourage exercise. Attempted to call patient but mailbox is full and is not accepting messages. Normal [facility] Orders Onlyon 01-11-2025 Orders Only [id number] MauryMarly R 1970 F Date Provider Department Center 01/11/2025 EDISON GRACE C CARD [facility] Family History Problem Relation Age of Onset Heart attack Father Coronary artery disease Brother Family Status - Relation Status Age at Mother Alive Father Sister Alive Brother [facility] Office Visiton 12-28-2024 Follow-up visit [id number] MauryMarly arboleda R 1970 F Date Provider Department Center 12/28/2024 EDISON GRACE CARD [facility] Family History Problem Relation Age of Onset Heart attack Father Coronary artery disease Brother Family Status - Relation Status Age at Mother Alive Father Sister Alive Brother Level of Service:40084 [place] OFFICE/OUTPATIENT ESTABLISHED MOD MDM 30 MIN Reason for Visit and Comments: Hypertension [822430] Follow up from [facility] ER [Other] [facility] 36on 12-25-2024 36 3 attempts made to contact patient, unable to leave a message, patient has an appointment on 12/28/2024. [facility] 36on 12-20-[address]'s note from the E R, Labs and CT of the chest and Abd are in multimedia instructional designer for you to review. Normal [facility] Urine Cultureon 12-18-2024 Bacteria identified Cx Nom (U) ORGANISM: Strep agalactiae - (group b) (O:STRAGA) [place] Count 15,000 * This is a corrected result. * A prior result that was reported as final has been changed. 15,000 colonies/ml Mixed Bacterial Skin Contaminants 1 Day removed from report on 12/20/24 PERFORMED BY: [facility] [address] [facility]. [place] [id number] PATHOLOGIST CONTINUOUS YARN DYEING MACHINE OPERATOR JAMES COTA M.D. Normal [facility] Comment on above: Performed By: #### C UU #### [facility] [address] [place] [address] [facility] Patient Letter FTon 2024 Patient Letter [facility] Patient Letter [facility] December 13, 2024 CONSTANTINO CARDOSO [address] [place] [id number] : 1970 Dear Constantino, This is a reminder that you are due for an appointment with [facility]. Please contact our office at [phone] to schedule an appointment at your earliest convenience. Thank you, [facility] Normal [facility] Miscellaneous-LCon 11-14 Lab Miscellaneous COMMENT Invalid Interpretation Code [facility] Comment on above: Result Comment: Test Ordered: [id number] Venous Thromb. Patients on VKA Homocysteine 9.5 [...] developed and its performance characteristics determined by [employer]. It has not been cleared or approved by the Food and Drug Administration. Factor VII Antigen 172 % UY Reference Range: 7 months and older: 60 - 175 Results of this test are for research purposes only per the assay motion picture film examiner. The performance characteristics of this assay have not been established. The result should not be used as a diagnostic procedure without confirmation of the diagnosis by another medically established diagnostic product or procedure. Protein C Ag/FVII Ag Ratio 0.7 ratio UY Reference Range: 0.5 - 2.2 Results of this test are for research purposes only per the assay motion picture film examiner. The performance characteristics of this assay have not been established. The result should not be used as a diagnostic procedure without confirmation of the diagnosis by another medically established diagnostic product or procedure. Protein S Ag/FVII Ag Ratio 0.5 ratio UY Reference Range: 0.5 - 2.2 Results of this test are for research purposes only per the assay motion picture film examiner. The performance characteristics of this assay have [...] and older: 22.9 - 30.2 APTT 1:1 SPLASH LINE OPERATOR NIY sec UY Testing Not Indicated This test was developed and its performance characteristics determined by [employer]. It has not been cleared or approved by the [place] Food and Drug Administration. APTT 1:1 Saline NIY sec UY Testing Not Indicated This test was developed and its performance characteristics determined by [facility]. It has not been cleared or approved by the [place] Food and Drug Administration. LAC Interpretation Comment UY A lupus anticoagulant is not detected. All antiphospholipid antibodies evaluated are normal. As antibody titers may fluctuate with time, repeat testing may be indicated. Please contact [facility] if further clarification is needed. DRVVT [...] Result Comment UY G-G (Normal-Normal) No prothrombin [id number] mutation present. Interpretation: Comment UY While the patient does not possess this risk factor, other thrombotic risk factors may be detected through systematic clinical laboratory analysis. Methodology: Comment UY Patient DNA was evaluated for the factor II gene mutation at n (more content not included)... Performed By: #### 1 [id number] #### [facility] [address] [place], [place] [id number] EEGon 10-28-2024 EEG EEG This is a routine electroencephalogram performed on a 54-year-old female using standard 10/20 lead placement and a [employer] system. All data were obtained digitally and [...] recommended. Rush Padilla M.D. ca Dictated: 10/20/2024 [id number] Typed: 10/21/2024 Normal [facility] Comment on above: Result Comment: Elec tronically Signed By: Randy BAKER, Rush\.br\Date and Time Signed: 10/28/24 07:30 EST BMPon 10-20-2024 Anion gap [Moles/Vol] 9 mmol/L Normal 6-16 [facility] Comment on above: Performed By: #### 2 [id number] #### [facility] [address] [place] [address] Calcium [Mass/Vol] 8.4 mg/dL Low 8.9-11.1 [facility] Comment on above: Performed By: #### 2 [id number] #### [facility] [address] [place] [address] Chloride [Moles/Vol] 112 mmol/L High 101-111 [facility] Comment on above: Performed By: #### 2 [id number] #### [facility] [address] [place] [address] CO2 [Moles/Vol] 25 mmol/L Normal 21-31 [facility] Comment on above: Performed By: #### 2 [id number] #### [facility] [address] [place] [address] Creatinine [Mass/Vol] 0.6 mg/dL Normal 0.5-1.3 [facility] Comment on above: Performed By: #### 2 109367 #### [facility] [address] [place] [address] Glucose [Mass/Vol] 107 mg/dL Normal 55-199 [facility] Comment on above: Performed By: #### 2 824937 #### [facility] [address] [place] [address] Potassium [Moles/Vol] 4.1 mmol/L Normal 3.5-5.3 [facility] Comment on above: Performed By: #### 2 593709 #### [facility] [address] [place] [address] Sodium [Moles/Vol] 142 mmol/L Normal 135-145 [facility] Comment on above: Performed By: #### 2 [id number] #### [facility] [address] [place] [address] Urea nitrogen [Mass/Vol] 23 mg/dL High 5-21 [facility] Comment on above: Performed By: #### 2 106259 #### [facility] [address] [place] [address] Urea nitrogen/Creatinine [Mass ratio] 38 No Units High 10-20 [facility] Comment on above: Performed By: #### 2 [id number] #### [facility] [address] [place] [address] CBC w/ Auto Diffon 5 Basophils/100 WBC (Bld) 0.7 % Normal 0.0-2.0 [facility] Comment on above: Performed By: #### 2 503120 #### [facility] [address] [place] [address] Basophils/Leukocytes Auto (Bld) [Pure # fraction] 0.0 E9/L Normal 0.0-0.2 [facility] Comment on above: Performed By: #### 2 700700 #### [facility] [address] [place] [address] Eosinophils (Bld) [#/Vol] 0.2 E9/L Normal 0.0-0.5 [facility] Comment on above: Performed By: #### 2 898777 #### [facility] [address] [place] [address] Eosinophils/100 WBC (Bld) 4.9 % Normal 0.0-8.0 [facility] Comment on above: Performed By: #### 2 [id number] #### [facility] [address] [place] [address] Erythrocyte distribution width (RBC) [Ratio] 14.2 % Normal 10.9-14.2 [facility] Comment on above: Performed By: #### 2 851805 #### [facility] [address] [place] [address] Hematocrit (Bld) [Volume fraction] 32.4 % Low 34.0-46.0 [facility] Comment on above: Performed By: #### 2 650002 #### [facility] [address] [place] [address] Hemoglobin (Bld) [Mass/Vol] 11.0 g/dL Low 12.0-16.0 [facility] Comment on above: Performed By: #### 2 009202 #### [facility] [address] [place] [address] Lymphocytes (Bld) [#/Vol] 1.5 E9/L Normal 1.0-4.0 [facility] Comment on above: Performed By: #### 2 670402 #### [facility] [address] [place] [address] Lymphocytes/100 WBC (Bld) 32.6 % Normal 14.0-50.0 [facility] Comment on above: Performed By: #### 2 193484 #### [facility] [address] [place] [address] MCH (RBC) [Entitic mass] 30.1 pg Normal 27.0-34.0 [facility] Comment on above: Performed By: #### 2 819387 #### [facility] [address] [place] [address] MCHC (RBC) [Mass/Vol] 33.9 g/dL Normal 31.4-36.0 [facility] Comment on above: Performed By: #### 2 031150 #### [facility] [address] [place] [address] MCV (RBC) [Entitic vol] 89.0 fL Normal 80.0-100.0 [facility] Comment on above: Performed By: #### 2 647530 #### [facility] [address] [place] [address] Monocytes (Bld) [#/Vol] 0.4 E9/L Normal 0.2-1.0 [facility] Comment on above: Performed By: #### 2 969949 #### [facility] [address] [place] [address] Neutrophils (Bld) [#/Vol] 2.5 E9/L Normal 2.0-7.5 [facility] Comment on above: Performed By: #### 2 025572 #### [facility] [address] [place] [address] Neutrophils/100 WBC (Bld) 53.5 % Normal 36.0-75.0 [facility] Comment on above: Performed By: #### 2 925222 #### [facility] [address] [place] [address] Platelet 385.0 E9/L Normal 150.0-500.0 [facility] Comment on above: Performed By: #### 2 770535 #### [facility] [address] [place] [address] Platelet mean volume (Bld) [Entitic vol] 7.1 fL Normal 6.4-10.8 [facility] Comment on above: Performed By: #### 2 712961 #### [facility] [address] [place] [address] RBC (Bld) [#/Vol] 3.6 E12/L Low 4.3-5.9 [facility] Comment on above: Performed By: #### 2 702264 #### [facility] [address] [place] [address] WBC corrected for nucl RBC Auto (Bld) [#/Vol] 4.6 E9/L Normal 4.0-11.0 [facility] Comment on above: Performed By: #### 2 343771 #### [facility] [address] [place] [address] CHEMISTRYOrdered By: Lab ROP User on 10-20-2024 Glucose [Mass/Vol] 115 mg/dL High 55 - 99 mg/dL [facility] POC Subsection Comment on above: Result Comment: Paul roche RN/ POC Username ALMA MORRIS Invalid Interpretation Code FT POC Subsection Sodium [Moles/Vol] 323128079677 mmol/L Invalid Interpretation Code FT POC Subsection Sodium [Moles/Vol] 804372166 mmol/L Invalid Interpretation Code FT POC Subsection Glucose [Mass/Vol] 93 mg/dL Normal 55 - 99 mg/dL [facility] POC Subsection Comment on above: Result Comment: Paul VARGAS POC Username ALMA MORRIS Invalid Interpretation Code FT POC Subsection Sodium [Moles/Vol] 444791529882 mmol/L Invalid Interpretation Code FT POC Subsection Sodium [Moles/Vol] 051341465 mmol/L Invalid Interpretation Code [facility] POC Subsection CHEMISTRYOrdered By: SYSTEM SYSTEM on [...] 10-06 Glucose [Mass/Vol] 115 mg/dL High 55-99 [facility] Comment on above: Result Comment: Paul VARGAS Performed By: #### 2 [id number] ####[facility] [address] [place] [address] Glucose [Mass/Vol] 93 mg/dL Normal 55-99 [facility] Comment on above: Result Comment: Paul VARGAS Performed By: #### 2 [id number] #### [facility] [address] [place] [address] Discharge Note-Nursingon Discharge Note-Nursing Discharge Note-Nursing CONSTANTINO [...] to 2 days Where: [address] [place] [phone] Business (1) Follow Up with Randy BAKER, REGINALDO Baker When: Within 2 to 4 weeks [facility] [place] [address]- Medications What How Much When Why Instructions Next Dose New aspirin (aspirin 81 mg Oral EC Tab) 1 Tablets By Mouth Every day Pickup at [facility]acy #6177 10/21/24 9am New cyanocobalamin (cyanocobalamin 1000 mcg Tab) 1 Tablets By Mouth Every day Pickup at [facility]/pharmacy #6177 10/21/24 9am New levetiracetam (Keppra 500 mg Tab) 1 Tablets By Mouth 2 times a day Pickup at [facility]pharmacy #6177 10/20/24 9pm New multivitamin (Multi Vitamins oral tablet) 1 Tablets By Mouth [facility] 10/21/24 9am Changed ergocalciferol (ergocalciferol 50,000 intl units Cap) 1 Capsules By Mouth Every 7 days Duration: 7 Weeks Pickup at [facility] #6177 10/27/24 9am Unchanged acarbose (acarbose [...] Mouth Every day 10/21/24 9am Pharmacy Information [facility]/pharmacy #6177: [address], [place] [id number] [phone] What How Much When Why Comments Stop [...] Low (10/20/24 (more content not included)... Normal [facility] HEMATOLOGYOrdered By: SYSTEM SYSTEM on 10-20-2024 [...] 10-20-2024 Inpatient Clinical Summary Inpatient Clinical Summary [place] [id number] Clinical Summary Person Information: Name: CONSTANTINO CARDOSO Age: 54 Years : 1970 Sex: Female PCP: JUDI YOUSSEF CNP Marital Status: Phone: [phone] Race: White Ethnicity: Non- or Language: Ukrainian Visit Id: Visit Reason: Facial droop; Headache; Potential stroke; POSS STROKE Speciality: Acuity: Enc Type: Observation Med Service: Medical Arrival: 10/19/2024 17:04:11 Discharge: Dispo Type: Admitted as IP to this Hosp Address: [address] [place] [id number] Provider Notes: Diagnosis: 1:Stroke-like symptoms; 2:Migraine headache; [...] With: Address: When: JUDI YOUSSEF [address] [facility] [place] [place] [phone] Business (1) Within 1 to 2 days With: Address: When: Rush Padilla MD, [place] [address] [address] [phone] Within 2 to 4 weeks Patient Education Information: Seizure, Adult, Yuji-mc-Nqjw; Vitamin B12 Deficiency, Cdov-zm-Nyhr; Vitamin D Deficiency, Ihcy-rz-Hzvk; Vitamin D Test; Migraine Headache, Ivnr-mq-Tdnt aspirin 81 mg Oral EC Tab, cyanocobalamin, ergocalciferol 50,000 intl units Cap, multivitamin Normal [facility] Inpatient Clinical Summary Inpatient Clinical Summary [address] [address] Clinical Summary Person Information: Name: CONSTANTINO CARDOSO Age: 54 Years : 1970 Sex: Female PCP: JUDI YOUSSEF CNP Marital Status: Phone: [phone] Race: White Ethnicity: Non- or Language: Ukrainian Visit Id: Visit Reason: Facial droop; Headache; Potential stroke; POSS STROKE Speciality: Acuity: Enc Type: Observation Med Service: Medical Arrival: 10/19/2024 17:04:11 Discharge: Dispo Type: Admitted as IP to this Hosp Address: [address] [facility] [id number] Provider Notes: Diagnosis: 1:Stroke-like symptoms; 2:Migraine headache; [...] With: Address: When: JUDI YOUSSEF [address] [place] [phone] Business (1) Within 1 to 2 days With: Address: When: Rush Padilla MD, [place] [address] [place] [address] Within 2 to 4 weeks Patient Education Information: Vitamin B12 Deficiency, Gwip-nh-Sxda; Vitamin D Deficiency, Xfsq-zu-Bmvi; Vitamin D Test; Migraine Headache, Unjt-qx-Tqho aspirin 81 mg Oral EC Tab, cyanocobalamin, ergocalciferol 50,000 intl units Cap, multivitamin Normal [facility] Inpatient Patient Summaryon 10-20-2024 Inpatient Patient Summary Inpatient Patient Summary [address] [address] Patient Discharge Instructions PERSON INFORMATION Name: CONSTANTINO CARDOSO Date of : 1970 Current Date: 10/20/2024 15:59:27 PHYSICIANS Admitting Physician: Eliezer Lorenzo DO Primary Care Physician: JUDI YOUSSEF CNP PCP Phone Number: [phone] Comment: Discharge Diagnosis: 1:Stroke-like symptoms; 2:Migraine headache; [...] With: Address: When: JUDI YOUSSEF [address] [facility] [place] [phone] Business (1) Within 1 to 2 days With: Address: When: Randy BAKER, REGINALDO Baker [facility] [address] [place] [address] Within 2 to 4 weeks [...] DURING YOUR HOSPITAL STAY New Medications [id number], [address], [place] [id number], [phone] aspirin (aspirin 81 mg Oral EC Tab) [...] Medications to Continue Taking That Have Changed [facility], [address] [facility] [address] [place] [phone], [phone] START: ergocalciferol (ergocalciferol 50,000 intl units Cap) [...] oral tablet) (more content not included)... Normal [facility] Inpatient Patient Summary Inpatient Patient Summary [place] [id number] Patient Discharge Instructions PERSON INFORMATION Name: CONSTANTINO CARDOSO Date of : 1970 Current Date: 10/20/2024 11:40:03 PHYSICIANS Admitting Physician: Eliezer Lorenzo DO Primary Care Physician: JUDI YOUSSEF CNP PCP Phone Number: [phone] Comment: Discharge Diagnosis: 1:Stroke-like symptoms; 2:Migraine headache; [...] When: JUDI YOUSSEF [address] [place] [phone] Business (1) Within 1 to 2 days With: Address: When: Randy BAKER, REGINALDO Baker [facility] [address] [place] [phone] Within 2 to 4 weeks In the [...] STAY New Medications [facility], [address] [place] [id number], [phone] aspirin (aspirin 81 mg Oral EC Tab) 1 Tablets By Mouth every day. Refills: 0. Last Dose: Next Dose: cyanocobalamin (cyanocobalamin 1000 mcg Tab) 1 Tablets By Mouth every day. Refills: 0. Last Dose: Next Dose: multivitamin (Multi Vitamins oral tablet) 1 Tablets By Mouth every day. Refills: 0. Last Dose: Next Dose: Medications to Continue Taking That Have Changed [facility], [address] [place] [phone], [phone] START: ergocalciferol (ergocalciferol 50,000 intl units Cap) [...] cyanocobalamin (cyanocobalamin (more content not included)... Normal [facility] Interdisciplinary Note - Issa n 10-20-2024 Interdisciplinary Note - OT Interdisciplinary Note - OT OT eval completed. [facility] score 24/24. Pt is completing ADL tasks and mobility in room at MOD I without AD, increased time due to soreness in R ankle from previous slip on ice. No skilled OT needs at this time. Normal [facility] Lipid Panelon 10-20-2024 Cholesterol [Mass/Vol] 179 mg/dL Normal 120-200 [facility] Comment on above: Performed By: #### 2 [id number] #### [facility] [address] [place] [address] Cholesterol in HDL [Mass/Vol] 52 mg/dL Invalid Interpretation Code [facility] Comment on above: Result Comment: '>= 60 LOW RISK' '<= 40 HIGH RISK' Performed By: #### 2 683841 #### [facility] [address] [place] [address] Cholesterol in LDL [Mass/Vol] 105 mg/dL Normal <=129 [facility] Comment on above: Performed By: #### 2 566523 #### [facility] [address] [place] [address] Cholesterol in VLDL [Mass/Vol] 25 mg/dL Normal 7-40 [facility] Comment on above: Performed By: #### 2 258409 #### [facility] [address] [place] [address] Triglyceride [Mass/Vol] 127 mg/dL Normal <=149 [facility] Comment on above: Performed By: #### 2 [id number] #### [facility] [address] [place] [address] MRA Head w/o Contraston 10-06 MRA Head w/o Contrast Exam Date/Time: 10/19/2024 22:35 EST Reason for Exam: CVA Report IMPRESSION: PROBABLY NEGATIVE HEAD MRA, NOTED. EXAM: MRA Head w/o Contrast DATE: 10/19/2024 7:13 PM CLINICAL HISTORY: CVA. COMPARISON: Head MRI/MRA 10/19/2024. TECHNIQUE: Three-dimensional asqx-jt-ozqdpi MRA of the intracranial arterial circulation was [...] MD Transcribed by: REZA Technologist: ANDRA Valentin [facility] MRA Neck w/o Contraston 10-06 MRA Neck w/o Contrast Exam Date/Time: 10/19/2024 22:35 EST Reason for Exam: CVA Report IMPRESSION: NEGATIVE NECK MRA. EXAM: MRA Neck w/o Contrast DATE: 10/19/2024 7:13 PM CLINICAL HISTORY: CVA. Technologist Comments: rt side facial droop, slurred speech, headache; symptoms have resolved currently; r/o stroke; no known injury/head trauma COMPARISON: Head MRI/MRA 10/19/2024. TECHNIQUE: 2D and 3D jmzw-gz-ekaevc MRA of the neck arterial circulation was [...] MD Transcribed by: REZA Technologist: ANDRA Valentin [facility] MRI Brain w/o Contraston MRI Brain [...] tissues are unremarkable. Report Ordering Provider: Guerline BAEN FINAL REPORT Dictated: 10/20/2024 12:25 pm Axel Garcia MD Signed (Electronic Signature): 10/20/2024 12:25 pm Signed by: Axel Garcia MD Transcribed by: REZA Technologist: ANDRA Valentin [facility] U Drug Screenon 10-20-2024 Amphetamines Screen method >1000 ng/mL Ql (U) Negative Normal NEGATIVE [facility] Comment on above: Result Comment: Nega tive Cutoff: <1000 ng/mL Performed By: #### 2 [id number] #### [facility] [address] [place] [address] Barbiturates Screen Ql (U) Negative Normal NEGATIVE [facility] Comment on above: Result Comment: Nega tive Cutoff: <200 ng/mL Performed By: #### 2 [id number] #### [facility] [address] [place] [address] Benzodiazepines Ql (U) Negative Normal NEGATIVE [facility] Comment on above: Result Comment: Nega tive Cutoff: <200 ng/mL Performed By: #### 2 [id number] #### [facility] [address] [place] [address] Cannabinoids Screen Ql (U) Negative Normal NEGATIVE [facility] Comment on above: Result Comment: Nega tive Cutoff: <50 ng/mL Performed By: #### 2 035785 #### [facility] [address] [place] [address] Cocaine Ql (U) Negative Normal NEGATIVE [facility] Comment on above: Result Comment: Nega tive Cutoff: <300 ng/mL Performed By: #### 2 043745 #### [facility] [address] [place] [address] Opiates Screen Ql (U) Negative Normal NEGATIVE [facility] Comment on above: Result Comment: Nega tive Cutoff: <300 ng/mL Performed By: #### 2 080806 #### [facility] [address] [place] [address] Phencyclidine Screen method >25 ng/mL Ql (U) Negative Normal NEGATIVE [facility] Comment on above: Result Comment: Nega tive Cutoff: <25 ng/mL These drug screen results are to be used for medical (i.e., treatment) purposes only. Unconfirmed drug screening results must not be used for non-medical purposes (e.g., employment testing, legal testing). Performed By: #### 2 [id number] #### [facility] [address] [place] [address] U Fentanyl Negative Normal NEGATIVE [facility] Comment on above: Result Comment: Nega tive Cutoff: <5 ng/mL These drug screen results are to be used for medical (i.e., treatment) purposes only. Unconfirmed drug screening results must not be used for non-medical purposes (e.g., employment testing, legal testing). Performed By: #### 2 [id number] #### [facility] [address] [place] [address] UA with Cult Rflxon 10-20-19 25 Bilirubin Ql (U) Negative Normal Negative [facility] Comment on above: Performed By: #### 4 [id number] #### [facility] [address] [place] [address] Clarity (U) Clear Normal Clear [facility] Comment on above: Performed By: #### 4 [id number] #### [facility] [address] [place] [address] Color (U) Yellow Normal Yellow [facility] Comment on above: Result Comment: Micr oscopic readings are only performed on those samples that meet specific criteria set forth by [facility]. Performed By: #### 4 [id number] #### [facility] [address] [place] [address] Glucose Ql (U) Negative Normal Negative [facility] Comment on above: Performed By: #### 4 [id number] #### [facility] [address] [place] [address] Hemoglobin Auto test strip (U) [Mass/Vol] Negative Normal Negative [facility] Comment on above: Performed By: #### 4 [id number] #### [facility] [address] [place] [address] Ketones Auto test strip Ql (U) Negative Normal Negative [facility] Comment on above: Performed By: #### 4 [id number] #### [facility] [address] [place] [address] Leukocyte esterase Auto test strip Ql (U) Negative Normal Negative [facility] Comment on above: Performed By: #### 4 [id number] #### [facility] [address] [place] [address] Nitrite Auto test strip Ql (U) Negative Normal Negative [facility] Comment on above: Performed By: #### 4 [id number] #### [facility] [address] [place] [address] pH (U) 5.5 [pH] Normal 5.0-9.0 [facility] Comment on above: Performed By: #### 4 [id number] #### [facility] [address] [place] [address] Protein Ql (U) Negative Normal Negative [facility] Comment on above: Performed By: #### 4 [id number] #### [facility] [address] [place] [address] Specific gravity (U) [Rel density] 1.028 Normal 1.005-1.030 [facility] Comment on above: Performed By: #### 4 [id number] #### [facility] [address] [place] [address] Urobilinogen (U) [Mass/Vol] Negative Normal Negative [facility] Comment on above: Performed By: #### 4 [id number] #### [facility] [address] [place] [address] Epithelial cells.squamous Auto (Urine sed) [#/Area] 0-2 Invalid Interpretation Code [facility] Comment on above: Performed By: #### 4 [id number] #### [facility] [address] [place] [address] Mucus Auto Ql (U) 1+ CD:[id number] Abnormal Negative [facility] Comment on above: Performed By: #### 4 [id number] #### [facility] [address] [place] [address] RBC Ql (U) 0-3 Normal 0-3 [facility] Comment on above: Performed By: #### 4 [id number] #### [facility] [address] [place] [address] WBC Auto (Urine sed) [#/Area] 0-5 Normal 0-5 [facility] Comment on above: Performed By: #### 4 [id number] #### [facility] [address] [place] [address] URINALYSISOrdered By: Maddison Acosta on 10-20-2024 Bilirubin Ql (U) Negative Normal Negativemg/ dL [facility] UA Auto SS Clarity (U) Clear (10/20/24 12:51 AM) Normal Clear [facility] UA Auto SS Color (U) Yellow 3 (10/20/24 12:51 AM) Normal Yellow [facility] UA Auto SS Comment on above: Interpretive Data: M icroscopic readings are only performed on those samples that meet specific criteria set forth by [facility]. Glucose Ql (U) Negative Normal [...] strip Ql (U) Negative Normal Negativemg/ dL [facility] UA Auto SS pH (U) 5.5 (10/20/24 12:51 AM) Normal 5.0 - 9.0 [facility] UA Auto SS Protein Ql (U) Negative Normal Negativemg/ dL [facility] UA Auto SS Specific gravity (U) [Rel density] 1.028 (10/20/24 12:51 AM) Normal 1.005 - 1.030 [facility] UA Auto SS Urobilinogen (U) [Mass/Vol] Negative Normal Negativemg/ dL [facility] UA Auto SS URINALYSISOrdered By: SYSTEM SYSTEM on 10-20-2024 Epithelial cells.squamous Auto (Urine sed) [#/Area] 0-2 graded/HPF Invalid Interpretation Code [facility] UA Auto SS Mucus Auto Ql (U) 1+ graded/LPF Invalid Interpretation Code Negativegra ded/LPF FT UA Auto SS RBC Ql (U) 0-3 graded/HPF Normal 0-3graded/H PF [facility] UA Auto SS WBC Auto (Urine sed) [#/Area] 0-5 graded/HPF Normal 0-5graded/H PF [facility] UA Auto SS URINALYSISOrdered By: Guerline BEAN on 10-20-2024 UA Spec Desc Clean Catch (10/20/24 12:51 AM) Normal [facility] UA Auto SS Vitamin D 25 Hydroxyon 10-20 25-hydroxyvitamin D3 [Mass/Vol] 12.7 ng/mL Low 30.0-100.0 [facility] Comment on above: Performed By: #### 5 [id number] #### [facility] [address] [place] [address] eGFRon 10-20-2024 eGFR 106 mL/min/1.73 m2 Normal >=59 [facility] Comment on above: Performed By: #### 1 [id number] #### [facility] [address] [place] [address] BB Draw & Holdon 10-19-2024 BB D&H Sample drawn for Blood Ba Normal [facility] Comment on above: Performed By: #### 1 [id number] #### [facility] [address] [place] [address] CBC w/ Auto Diffon 5 RBC size Nom (Bld) NORMAL Invalid Interpretation Code [facility] Comment on above: Performed By: #### 2 [id number] #### [facility] [address] [place] [address] Basophils/100 WBC (Bld) 0.6 % Normal 0.0-2.0 [facility] Comment on above: Performed By: #### 2 [id number] #### [facility] [address] [place] [address] Basophils/Leukocytes Auto (Bld) [Pure # fraction] 0.0 E9/L Normal 0.0-0.2 [facility] Comment on above: Performed By: #### 2 [id number] #### [facility] [address] [place] [address] Eosinophils (Bld) [#/Vol] 0.2 E9/L Normal 0.0-0.5 [facility] Comment on above: Performed By: #### 2 [id number] #### [facility] [address] [place] [address] Eosinophils/100 WBC (Bld) 3.9 % Normal 0.0-8.0 [facility] Comment on above: Performed By: #### 2 [id number] #### [facility] [address] [place] [address] Erythrocyte distribution width (RBC) [Ratio] 14.1 % Normal 10.9-14.2 [facility] Comment on above: Performed By: #### 2 [id number] #### [facility] [address] [place] [address] Hematocrit (Bld) [Volume fraction] 34.6 % Normal 34.0-46.0 [facility] Comment on above: Performed By: #### 2 [id number] #### [facility] [address] [place] [address] Hemoglobin (Bld) [Mass/Vol] 11.9 g/dL Low 12.0-16.0 [facility] Comment on above: Performed By: #### 2 [id number] #### [facility] [address] [place] [address] Lymphocytes (Bld) [#/Vol] 1.8 E9/L Normal 1.0-4.0 [facility] Comment on above: Performed By: #### 2 720265 #### [facility] [address] [place] [address] Lymphocytes/100 WBC (Bld) 33.3 % Normal 14.0-50.0 [facility] Comment on above: Performed By: #### 2 [id number] #### [facility] [address] [place] [address] MCH (RBC) [Entitic mass] 30.6 pg Normal 27.0-34.0 [facility] Comment on above: Performed By: #### 2 [id number] #### [facility] [address] [place] [address] MCHC (RBC) [Mass/Vol] 34.2 g/dL Normal 31.4-36.0 [facility] Comment on above: Performed By: #### 2 [id number] #### [facility] [address] [place] [address] MCV (RBC) [Entitic vol] 89.5 fL Normal 80.0-100.0 [facility] Comment on above: Performed By: #### 2 [id number] #### [facility] [address] [place] [address] Monocytes (Bld) [#/Vol] 0.4 E9/L Normal 0.2-1.0 [facility] Comment on above: Performed By: #### 2 [id number] #### [facility] [address] [place] [address] Neutrophils (Bld) [#/Vol] 2.9 E9/L Normal 2.0-7.5 [facility] Comment on above: Performed By: #### 2 [id number] #### [facility] [address] [place] [address] Neutrophils/100 WBC (Bld) 55.0 % Normal 36.0-75.0 [facility] Comment on above: Performed By: #### 2 [id number] #### [facility] [address] [place] [address] Platelet mean volume (Bld) [Entitic vol] 7.2 fL Normal 6.4-10.8 [facility] Comment on above: Performed By: #### 2 [id number] #### [facility] [address] [place] [address] Platelets (Bld) [#/Vol] 424.0 E9/L Normal 150.0-500.0 [facility] Comment on above: Performed By: #### 2 110069 #### [facility] [address] [place] [address] RBC (Bld) [#/Vol] 3.9 E12/L Low 4.3-5.9 [facility] Comment on above: Performed By: #### 2 209042 #### [facility] [address] [place] [address] WBC corrected for nucl RBC Auto (Bld) [#/Vol] 5.4 E9/L Normal 4.0-11.0 [facility] Comment on above: Performed By: #### 2 476913 #### [facility] [address] [place] [address] CHEMISTRYOrdered By: Lab ROP User on 10-19-2024 Glucose [Mass/Vol] 93 mg/dL Normal 55 - 99 mg/dL [facility] POC Subsection Comment on above: Result Comment: Paul roche RN/ POC Username STEVIE BELLA Invalid Interpretation Code [facility] POC Subsection Sodium [Moles/Vol] 610724631733 mmol/L Invalid Interpretation Code [facility] POC Subsection Sodium [Moles/Vol] 764531170 mmol/L Invalid Interpretation Code [facility] POC Subsection CHEMISTRYOrdered By: SYSTEM SYSTEM on [...] Sensitivity Troponin I Instructions For Use, [employer], April 2018) TSH Qn 1.53 m[IU]/L Normal 0.34 - 5.60 mcIU/mL Remisol Chem Urea nitrogen [Mass/Vol] 22 mg/dL High 5 - 21 mg/dL Remisol Chem Urea nitrogen/Creatinine [Mass ratio] 28 mg/mg High 10 - 20 Remisol Chem CHEMISTRYOrdered By: Britta Ortega on 10-19-2024 HbA1c (Bld) [Mass fraction] 5.7 % Normal <=5.9% [facility] ChemAutoSS CMPon 10-19-2024 Albumin [Mass/Vol] 3.9 g/dL Normal 3.3-5.0 [facility] Comment on above: Performed By: #### 2 [id number] #### [facility] [address] [place] [address] Albumin/Globulin (S) [Mass conc ratio] 1.6 Normal 1.1-2.2 [facility] Comment on above: Performed By: #### 2 [id number] #### [facility] [address] [place] [address] ALP [Catalytic activity/Vol] 120 Int._Unit/L High 21-98 [facility] Comment on above: Performed By: #### 2 [id number] #### [facility] [address] [place] [address] ALT No additional P-5'-P [Catalytic activity/Vol] 11 Int._Unit/L Normal 6-46 [facility] Comment on above: Performed By: #### 2 755919 #### [facility] [address] [place] [address] Anion gap [Moles/Vol] 9 mmol/L Normal 6-16 [facility] Comment on above: Performed By: #### 2 [id number] #### [facility] [address] [place] [address] AST [Catalytic activity/Vol] 14 Int._Unit/L Normal 5-43 [facility] Comment on above: Performed By: #### 2 [id number] #### [facility] [address] [place] [address] Bilirubin [Mass/Vol] 0.4 mg/dL Normal 0.0-1.1 [facility] Comment on above: Performed By: #### 2 204230 #### [facility] [address] [place] [address] Calcium [Mass/Vol] 8.9 mg/dL Normal 8.9-11.1 [facility] Comment on above: Performed By: #### 2 [id number] #### [facility] [address] [place] [address] Chloride [Moles/Vol] 110 mmol/L Normal 101-111 [facility] Comment on above: Performed By: #### 2 100556 #### [facility] [address] [place] [address] CO2 [Moles/Vol] 24 mmol/L Normal 21-31 [facility] Comment on above: Performed By: #### 2 137815 #### [facility] [address] [place] [address] Creatinine [Mass/Vol] 0.8 mg/dL Normal 0.5-1.3 [facility] Comment on above: Performed By: #### 2 521040 #### [facility] [address] [place] [address] Globulin (S) [Mass/Vol] 2.4 g/dL Normal 1.4-4.0 [facility] Comment on above: Performed By: #### 2 [id number] #### [facility] [address] [place] [address] Glucose [Mass/Vol] 107 mg/dL Normal 55-199 [facility] Comment on above: Performed By: #### 2 989729 #### [facility] [address] [place] [address] Potassium [Moles/Vol] 3.4 mmol/L Low 3.5-5.3 [facility] Comment on above: Performed By: #### 2 611674 #### [facility] [address] [place] [address] Protein [Mass/Vol] 6.3 g/dL Normal 6.0-7.8 [facility] Comment on above: Performed By: #### 2 672462 #### [facility] [address] [place] [address] Sodium [Moles/Vol] 140 mmol/L Normal 135-145 [facility] Comment on above: Performed By: #### 2 414035 #### [facility] [address] [place] [address] Urea nitrogen [Mass/Vol] 22 mg/dL High 5-21 [facility] Comment on above: Performed By: #### 2 438719 #### [facility] [address] [place] [address] Urea nitrogen/Creatinine [Mass ratio] 28 No Units High 10-20 [facility] Comment on above: Performed By: #### 2 276963 #### [facility] [address] [place] [address] COAGULATIONOrdered By: Anabela Matute on 10-19-2024 aPTT Coag (PPP) [Time] 40.8 s High 25.1 - 36.5 second(s) [facility] Comment on above: Interpretive Data: [...] obtained from a study by elsa Torres alNeo prepared from 1437 samples obtained at 7 different centers using the same coagulation reagent and instrumentation as [facility]. Currently there are no coagulation studies available worldwide for children to 14 days, and no normal ranges. Heparin therapeutic range (represented by Anti-Factor Xa activity of 0.2 - 0.4 U/mL) corresponds to PTT of 56.6 - 109.0 sec. INR Coag (PPP) [Relative time] 0.96 {INR} Invalid Interpretation Code [facility] Comment on above: Interpretive Data: I NR results are specifically intended to assess patients stabilized on long-term Anticoagulation therapy suggested INR s Less Intensive Anticoagulation 2.0 3.0 Conventional Range 3.0 4.5 PT Coag (PPP) [Time] 10.7 s Normal 9.4 - 1 2.5 second(s) [facility] Comment on above: Interpretive Data: 1 5 days - 4 weeks 1 - 5 months 6 -11 months 1-5 years 6-10 years 11 -17 years Mean: 11.2 (9.5-12.6) Mean: 11.0 (9.7-12.8) Mean: 11.0 (9.8-13.0) Mean: 11.3 (9.9-13.4) Mean: 11.7 (10.0-14.6) Mean: 11.8 (10.0 - 14.1) Pediatric Reference ranges were obtained from a study by elsa Torres alNeo prepared from 1437 samples obtained at 7 different centers using the same coagulation reagent and instrumentation as [facility]. Currently there are no coagulation studies available [...] as reasonably achievable. Report Ordering Provider: Yung Oorpeza FINAL REPORT Dictated: 10/19/2024 5:24 pm Juarez Staples MD Signed (Electronic Signature): 10/19/2024 5:24 pm Signed by: Juarez Staples MD Transcribed by: REZA Technologist: CML Normal [facility] Capillary Glucose POCon 10-06 Glucose [Mass/Vol] 93 mg/dL Normal 55-99 [facility] Comment on above: Result Comment: Paul roche RN/ Performed By: #### 2 [id number] #### [facility] [address] [place] [address] ED Clinical Summaryon 2024 ED Clinical Summary ED Clinical Summary [address] [address] ED Clinical Summary Person Information Name: CONSTANTINO CARDOSO [place] Age: 54 Years : 1970 Sex: Female Language: Ukrainian PCP: JUDI YOUSSEF CNP Marital Status: Phone: [phone] MRN: Visit Id: Visit Reason: Facial droop; Headache; Potential stroke; POSS STROKE Speciality: Acuity: 2 Enc Type: Observation Med Service: Medical Arrival: 10/19/2024 17:04:11 Discharge: LOS: 000 02:07 Checkin: 10/19/2024 17:04:11 Checkout: 10/19/2024 19:11:15 Dispo Type: [facility] EVENTS: Event Name Event Status Request [...] 10/19/2024 19:11:15 10/19/2024 19:11:15 10/19/2024 19:11:15 ADDRESS: [address] [place] [id number] PHYS DOC NOTES: MEDICAL INFORMATION: Prescriptions Given: [...] deep vein (more content not included)... Normal [facility] ED Note-Physicianon 10-19-19 ED Note-Physician ED [...] Not ta (more content not included)... Normal [facility] Comment on above: Result Comment: Elec tronically Signed By: Prosper Bergman DO\.br\Date and Time Signed: 10/19/24 18:09 EST ED Patient Education Noteon 10-19-2024 ED Patient Education Note ED Patient Education Note Normal [facility] ED Patient Summaryon 025 ED Patient Summary ED Patient Summary [address] [address] Patient Discharge Instructions Person Information Name: CONSTANTINO CARDOSO Age: 54 Years Arrival Date: 10/19/2024 17:04:11 Discharge Diagnosis: 1:Stroke-like symptoms; 2:Migraine headache; 3:Anemia; 4:Hypokalemia; 5:HTN (hypertension); 6:HLD (hyperlipidemia); 7:Gastroparesis; 8:Acid reflux; 9:Seizure; 10:Osteoarthritis; 11:Obesity due to excess calories; 12:On deep vein thrombosis (DVT) prophylaxis Primary Care Physician: JUDI YOUSSEF CNP Provider Information Primary Provider: Prosper Bergman DO Advanced Hide Washer:None The exam and treatment you received in the Emergency Department were for an urgent problem and are not intended as complete care. It is important that you follow up with a doctor, nurse practitioner, or physician???s trust operations assistant for ongoing care. If your symptoms [...] opioids can be used to help relieve ielrbuzx-yq-irrgic pain and are often prescribed following a [...] believe you (more content not included)... Normal [facility] Ethanolon 10-19-2024 Ethanol Lvl <10 Normal <=11 [facility] Comment on above: Performed By: #### 2 [id number] #### [facility] [address] [place] [address] Ferritinon 10-19-2024 Ferritin [Mass/Vol] 36 ng/mL Normal 11-307 [facility] on above: Performed By: #### 2 [id number] #### [facility] [address] [place] [address] Folateon 10-19-2024 Folate [Mass/Vol] 20.7 ng/mL Normal >=6.7 [facility] Comment on above: Performed By: #### 2 [id number] #### [facility] [address] [place] [address] HEMATOLOGYOrdered By: SYSTEM SYSTEM on 10-19-2024 Basophils/100 [...] Normal 4.0 - 11.0 E9/L Remisol Heme [id number] 10-19-2024 HbA1c (Bld) [Mass fraction] 5.7 % Normal <=5.9 [facility] Comment on above: Performed By: #### 7 [id number] #### [facility] [address] [place] [address] Ironon 10-19-2024 Iron [Mass/Vol] 52 microgram/dL Normal 35-153 [facility] Comment on above: Performed By: #### 2 [id number] #### [facility] [address] [place] [address] LDHon 10-19-2024 LDH 186 Int._Unit/L Normal 93-218 [facility] Comment on above: Performed By: #### 2 [id number] #### [facility] [address] [place] [address] Lab Miscellaneous-LCon 10-19 Test Code 106781 Invalid Interpretation Code [facility] Comment on above: Performed By: #### 1 [id number] #### [facility] [address] [place] [address] Test Name Hypercoag Prof Invalid Interpretation Code [facility] Comment on above: Performed By: #### 1 [id number] #### [facility] [address] [place] [address] Magnesiumon 10-19-2024 Magnesium [Mass/Vol] 1.9 mg/dL Normal 1.3-2.4 [facility] Comment on above: Performed By: #### 2 877466 #### [facility] [address] [place] [address] PT & PTTon 10-19-2024 aPTT Coag (PPP) [Time] 40.8 second(s) High 25.1-36.5 [facility] Comment on above: Result Comment: Para [...] the same coagulation reagent and instrumentation as [facility]. Currently there are no coagulation studies available worldwide for children to 14 days, and no normal ranges. Heparin therapeutic range (represented by Anti-Factor Xa activity of 0.2 - 0.4 U/mL) corresponds to PTT of 56.6 - 109.0 sec. Performed By: #### 1 [id number] #### [facility] [address] [place] [address] INR Coag (PPP) [Relative time] 0.96 {INR} Invalid Interpretation Code [facility] Comment on above: Result Comment: INR results are specifically intended to assess patients stabilized on long-term Anticoagulation therapy suggested INR???s ???Less Intensive Anticoagulation??? 2.0 ??? 3.0 Conventional Range 3.0 ??? 4.5 Performed By: #### 1 [id number] #### [facility] [address] [place] [address] PT Coag (PPP) [Time] 10.7 second(s) Normal 9.4-12.5 [facility] Comment on above: Result Comment: 15 [...] the same coagulation reagent and instrumentation as [facility]. Currently there are no coagulation studies available worldwide for children to 14 days, and no normal ranges. Performed By: #### 1 [id number] #### [facility] [address] [place] [address] Pre-Arrival Noteon 5 Pre-Arrival Note Pre-Arrival Note Pre-Arrival Summary Name: , [facility] Current Date: 10/19/2024 17:08:25 EST Gender: Female Date of : Age: 50 Pre-Arrival Type: EMS ETA: 10/19/2024 17:20:00 EST Primary Care Physician: Presenting Problem: facial droop / slurred speech Pre-Arrival User: Stevie Bella Referring Source: Location: [place] Completion Date/Time: 10/19/2024 16:51:00 [facility] Emergency Department Pre-Hospital Report Form ____ Vital Signs: Pre-Hospital Report: Treatment in Route: Response to Treatment: Misc. Issues: Normal [facility] Reference Laboratory Testing Ordered By: Guerline BEAN on 10-19-2024 Sodium [Moles/Vol] 332670 mmol/L Invalid Interpretation Code [facility] SendOutsSS Test Name Hypercoag Prof Invalid Interpretation Code [facility] SendOutsSS Retic Counton 10-19-2024 Reticulocytes/100 RBC (Bld) 2.4 % High 0.5-2.2 [facility] Comment on above: Performed By: #### 2 [id number] #### [facility] [address] [place] [address] TIBC Calculatedon 10-19-2024 Iron binding capacity [Mass/Vol] 342 microgram/dL Normal 250-400 [facility] Comment on above: Performed By: #### 1 [id number] #### [facility] [address] [place] [id number] Transferrin [Mass/Vol] 244 mg/dL Normal 200-370 [facility] Comment on above: Performed By: #### 1 [id number] #### [facility] [address] [place] [address] TSH With T4fr Reflexon 10-19 TSH Qn 1.53 m[IU]/L Normal 0.34-5.60 [facility] Comment on above: Performed By: #### 1 [id number] #### [facility] [address] [place] [address] Troponin 0 Hr.on 10-19-2024 Troponin HS 10.80 pg/mL Normal 10.10-27.10 [facility] Comment on above: Result Comment: The 95% CI (Confidence Interval) PPV (Positive Predictive Value) for myocardial infarction in females is 38 pg/mL, in males 51 pg/mL. The results should be used in conjunction with clinical conditions of myocardial infarction. (Access High Sensitivity Troponin I Instructions For Use, Guill[employer], April 2018) Performed By: #### 1 [id number] #### [facility] [address] [place] [address] UA with Cult Rflxon 10-19-19 Type of Urine collection method Clean Catch Normal [facility] Comment on above: Performed By: #### 4 [id number] #### [facility] [address] [place] [address] Vit B12on 10-19-2024 Cobalamin (Vitamin B12) [Mass/Vol] 69 pg/mL Normal 50-1500 [facility] Comment on above: Performed By: #### 2 [id number] #### [facility] [address] [place] [address] XR Chest Single Viewon 10-19 XR Chest [...] MD Transcribed by: REZA Technologist: BRIELLE Valentin [facility] eGFRon 10-19-2024 eGFR 87 mL/min/1.73 m2 Normal >=59 [facility] Comment on above: Performed By: #### 1 [id number] #### [facility] [address] [place] [address] Office Visiton 09-17-2024 Follow-up visit [id number] Marly Cardoso 1970 F Date Provider Department Center 09/17/2024 20733-BOIGWZEDISON KINCAID Family History Problem Relation Age of Onset Heart attack Father Family Status - Relation Status Age at Father Level of Service:31383 [place] OFFICE/OUTPATIENT ESTABLISHED MOD MDM 30 MIN Reason for Visit and Comments: Palpitations [871457] - Occurring no more than usual for her she says. Valve Disorder [3372] - Denies chest pain and SOB. Hypertension [472915] Fatigue [46] - C/o fatigue and no energy . Normal [facility] Basic Metab w/rfx MGon 08-30 Anion gap [Moles/Vol] 11 mmol/L Normal 9-16 [facility] Comment on above: Performed By: #### P HO, BMPX, MG, CDP #### [facility] [address] [place] [address] Temperature Logging Operator: Josef Rivera MD Calcium [Mass/Vol] 9.4 mg/dL Normal 8.6-10.4 [facility] Comment on above: Performed By: #### P HO, BMPX, MG, CDP #### [facility] [address] [place] [address] Temperature Logging Operator: Josef Rivera MD Chloride [Moles/Vol] 105 mmol/L Normal 98-107 [facility] Comment on above: Performed By: #### P HO, BMPX, MG, CDP #### [facility] [address] [place] [address] Temperature Logging Operator: Josfe Rivera MD CO2 [Moles/Vol] 24 mmol/L Normal 20-31 [facility] Comment on above: Performed By: #### P HO, BMPX, MG, CDP #### [facility] [address] [place] [address] Temperature Logging Operator: Josef Rivera MD Creatinine [Mass/Vol] 0.8 mg/dL Normal 0.6-0.9 [facility] Comment on above: Performed By: #### P HO, BMPX, MG, CDP #### [facility] [address] [place] [address] Temperature Logging Operator: Josef Rivera MD GFR/1.73 sq M.predicted among non-blacks MDRD (S/P/Bld) [Vol rate/Area] 88 mL/min/{1.73_m2} Normal >60 [facility] Comment on above: Result Comment: These [...] HO, BMPX, MG, CDP #### [facility] [address] [place] [address] Temperature Logging Operator: Josef Rivera MD Glucose [Mass/Vol] 107 mg/dL High 74-99 [facility] Comment on above: Performed By: #### P HO, BMPX, MG, CDP #### [facility] [address] [place] [address] Temperature Logging Operator: Josef Rivera MD Potassium [Moles/Vol] 3.8 mmol/L Normal 3.7-5.3 [facility] Comment on above: Performed By: #### P HO, BMPX, MG, CDP #### [facility] [address] [place] [address] Temperature Logging Operator: Josef Rivera MD Sodium [Moles/Vol] 140 mmol/L Normal 136-145 [facility] Comment on above: Performed By: #### P HO, BMPX, MG, CDP #### [facility] [address] [place] [address] Temperature Logging Operator: Josef Rivera MD Urea nitrogen [Mass/Vol] 5 mg/dL Low 6-20 [facility] Comment on above: Performed By: #### P HO, BMPX, MG, CDP #### [facility] [address] [place] [address] Temperature Logging Operator: Josef Rivera MD Basic Metabolic Panel w/ Ref galen to MGon 08-30-2024 Anion gap [Moles/Vol] 11 mmol/L 9 - 16 mmol/L [facility] Calcium [Mass/Vol] 9.4 mg/dL 8.6 - 10. 4 mg/dL [facility] Chloride [Moles/Vol] 105 mmol/L 98 - 10 7 mmol/L [facility] CO2 [Moles/Vol] 24 mmol/L 20 - 31 mmol/L [facility] Creatinine [Mass/Vol] 0.8 mg/dL 0.6 - 0.9 mg/dL [facility] Est, Glom Filt Rate 88 - PINF [facility] Comment on above: These results are [...] 107 mg/dL High 74 - 99 mg/dL [facility] Interpretation and review of laboratory results Abnormal [facility] Potassium [Moles/Vol] 3.8 mmol/L 3.7 - 5.3 mmol/L [facility] Sodium [Moles/Vol] 140 mmol/L 136 - 145 mmol/L [facility] Urea nitrogen [Mass/Vol] 5 mg/dL Low 6 - 20 mg/dL [facility] CBC with Auto Differentialon 08-30-2024 Basophils (Bld) [#/Vol] 0.03 10*3/uL [facility] Basophils/100 WBC (Bld) 1 % 0 - 2 % [facility] Eosinophils (Bld) [#/Vol] 0.27 10*3/uL [facility] Eosinophils/100 WBC (Bld) 5 % High 1 - 4 % [facility] Erythrocyte distribution width (RBC) [Ratio] 12.7 % 11.8 - 14.4 % [facility] Hematocrit (Bld) [Volume fraction] 37.4 % 36.3 - 47.1 % [facility] Hemoglobin (Bld) [Mass/Vol] 11.5 g/dL Low 11.9 - 15.1 g/dL [facility] Immature granulocytes (Bld) [#/Vol] [facility] Immature granulocytes/100 WBC (Bld) 0 % 0 [facility] Interpretation and review of laboratory results Abnormal [facility] Lymphocytes/100 WBC (Bld) 25 % 24 - 43 % [facility] Lymphocytes/100 WBC (Bld) 1.35 % [facility] MCH (RBC) [Entitic mass] 28.8 pg 25.2 - 33.5 pg [facility] MCHC (RBC) [Mass/Vol] 30.7 g/dL 28.4 - 34.8 g/dL [facility] MCV (RBC) [Entitic vol] 93.5 fL 82.6 - 102.9 fL [facility] Monocytes/100 WBC (Bld) 9 % 3 - 12 % [facility] Monocytes/100 WBC (Bld) 0.46 % [facility] Neutrophils/100 WBC (Bld) 60 % 36 - 65 % [facility] Nucleated RBC/100 WBC (Bld) [Ratio] 0.0 % 0.0 per 100 WBC [facility] Platelet mean volume (Bld) [Entitic vol] 9.1 fL 8.1 - 13.5 fL [facility] Platelets (Bld) [#/Vol] 321 10*3/uL [facility] RBC (Bld) [#/Vol] 4.00 10*6/uL 3.95 - 5.1 1 m/uL [facility] Segmented neutrophils/100 WBC (Bld) 3.27 % [facility] WBC other (Bld) [#/Vol] 5.4 [facility] CBC with Diffon 08-30-2024 Abs. Basophil 0.03 k/uL Normal 0.00-0.20 [facility] Comment on above: Performed By: #### P HO, BMPX, MG, CDP #### [facility] [place] [address] Temperature Logging Operator: Josef Rivera MD Abs.Imm.Granulocyte <0.03 Normal 0.00-0.30 [facility] Comment on above: Performed By: #### P HO, BMPX, MG, CDP #### [facility] [address] [place] [address] Temperature Logging Operator: Josef Rivera MD Abs.Neutrophil (Seg) 3.27 k/uL Normal 1.50-8.10 [facility] Comment on above: Performed By: #### P HO, BMPX, MG, CDP #### [facility] [address] [place] [address] Temperature Logging Operator: Josef Rivera MD Basophils/100 WBC (Bld) 1 % Normal 0-2 [facility] Comment on above: Performed By: #### P HO, BMPX, MG, CDP #### [facility] [address] [place] [address] Temperature Logging Operator: Josef Rivera MD Eosinophils (Bld) [#/Vol] 0.27 10*3/uL Normal 0.00-0.44 [facility] Comment on above: Performed By: #### P HO, BMPX, MG, CDP #### [facility] [address] [place] [address] Temperature Logging Operator: Josef Rivera MD Eosinophils/100 WBC (Bld) 5 % High 1-4 [facility] Comment on above: Performed By: #### P HO, BMPX, MG, CDP #### [facility] [address] [place] [address] Temperature Logging Operator: Josef Rivera MD Erythrocyte distribution width (RBC) [Ratio] 12.7 % Normal 11.8-14.4 [facility] Comment on above: Performed By: #### P HO, BMPX, MG, CDP #### [facility] [address] [place] [address] Temperature Logging Operator: Josef Rivera MD Hematocrit (Bld) [Volume fraction] 37.4 % Normal 36.3-47.1 [facility] Comment on above: Performed By: #### P HO, BMPX, MG, CDP #### [facility] [address] [place] [address] Temperature Logging Operator: Josef Rivera MD Hemoglobin (Bld) [Mass/Vol] 11.5 g/dL Low 11.9-15.1 [facility] Comment on above: Performed By: #### P HO, BMPX, MG, CDP #### [facility] [address] [place] [address] Temperature Logging Operator: Josef Rivera MD Immature granulocytes/100 WBC (Bld) 0 % Normal 0 [facility] Comment on above: Performed By: #### P HO, BMPX, MG, CDP #### [address] [address] Temperature Logging Operator: Josef Rivera MD Lymphocytes (Bld) [#/Vol] 1.35 10*3/uL Normal 1.10-3.70 [facility] Comment on above: Performed By: #### P HO, BMPX, MG, CDP #### [facility] [address] [place] [address] Temperature Logging Operator: Josef Rivera MD Lymphocytes/100 WBC (Bld) 25 % Normal 24-43 [facility] Comment on above: Performed By: #### P HO, BMPX, MG, CDP #### [facility] [address] [place] [address] Temperature Logging Operator: Josef Rivera MD MCH (RBC) [Entitic mass] 28.8 pg Normal 25.2-33.5 [facility] Comment on above: Performed By: #### P HO, BMPX, MG, CDP #### [facility] [address] [place] [address] Temperature Logging Operator: Josef Rivera MD MCHC (RBC) [Mass/Vol] 30.7 g/dL Normal 28.4-34.8 [facility] Comment on above: Performed By: #### P HO, BMPX, MG, CDP #### [address] [address] Temperature Logging Operator: Josef Rivera MD MCV (RBC) [Entitic vol] 93.5 fL Normal 82.6-102.9 [facility] Comment on above: Performed By: #### P HO, BMPX, MG, CDP #### [address] [address] Temperature Logging Operator: Josef Rivera MD Monocytes (Bld) [#/Vol] 0.46 10*3/uL Normal 0.10-1.20 [facility] Comment on above: Performed By: #### P HO, BMPX, MG, CDP #### [place] [address] Temperature Logging Operator: Josef Rivera MD Monocytes/100 WBC (Bld) 9 % Normal 3-12 [facility] Comment on above: Performed By: #### P HO, BMPX, MG, CDP #### [address] [address] Temperature Logging Operator: Josef Rivera MD Neutrophil (Seg) 60 % Normal 36-65 [facility] Comment on above: Performed By: #### P HO, BMPX, MG, CDP #### [facility] [address] [place] [address] Temperature Logging Operator: Josef Rivera MD NRBC Automated 0.0 per 100 WBC Normal 0.0 [facility] Comment on above: Performed By: #### P HO, BMPX, MG, CDP #### [facility] [address] [place] [address] Temperature Logging Operator: Josef Rivera MD Platelet mean volume (Bld) [Entitic vol] 9.1 fL Normal 8.1-13.5 [facility] Comment on above: Performed By: #### P HO, BMPX, MG, CDP #### [facility] [place] [address] Temperature Logging Operator: Josef Rivera MD Platelets (Bld) [#/Vol] 321 10*3/uL Normal 138-453 [facility] Comment on above: Performed By: #### P HO, BMPX, MG, CDP #### [facility] [place] [address] Temperature Logging Operator: Josef Rivera MD RBC (Bld) [#/Vol] 4.00 10*6/uL Normal 3.95-5.11 [facility] Comment on above: Performed By: #### P HO, BMPX, MG, CDP #### [facility] [address] [place] [address] Temperature Logging Operator: Josef Rivera MD WBC (Bld) [#/Vol] 5.4 10*3/uL Normal 3.5-11.3 [facility] Comment on above: Performed By: #### P HO, BMPX, MG, CDP #### [facility] [address] [place] [address] Temperature Logging Operator: Josef Rivera MD Glucose,Whole Bloodon 2023 Glucose [Mass/Vol] 104 mg/dL Normal 65-105 [facility] Glucose [Mass/Vol] 120 mg/dL High 65-105 [facility] Glucose [Mass/Vol] 97 mg/dL Normal 65-105 [facility] POC Glucose Fingerstickon Glucose [Mass/Vol] 104 mg/dL 65 - 105 mg/dL [facility] Glucose [Mass/Vol] 120 mg/dL High 65 - 105 mg/dL [facility] Interpretation and review of laboratory results Abnormal [facility] Glucose [Mass/Vol] 97 mg/dL 65 - 105 mg/dL [facility] Basic Metab w/rfx MGon 08-29 Anion gap [Moles/Vol] 12 mmol/L Normal 9-16 [facility] Comment on above: Performed By: #### P HO, BMPX, MG, CDP #### [facility] [address] [place] [address] Temperature Logging Operator: Josef Rivera MD Calcium [Mass/Vol] 8.9 mg/dL Normal 8.6-10.4 [facility] Comment on above: Performed By: #### P HO, BMPX, MG, CDP #### [facility] [address] [place] [address] Temperature Logging Operator: Josef Rivera MD Chloride [Moles/Vol] 106 mmol/L Normal 98-107 [facility] Comment on above: Performed By: #### P HO, BMPX, MG, CDP #### [facility] [address] [place] [id number] Temperature Logging Operator: Josef Rivera MD CO2 [Moles/Vol] 22 mmol/L Normal 20-31 [facility] Comment on above: Performed By: #### P HO, BMPX, MG, CDP #### [facility] [address] [place] [address] Temperature Logging Operator: Josef Rivera MD Creatinine [Mass/Vol] 0.7 mg/dL Normal 0.6-0.9 [facility] Comment on above: Performed By: #### P HO, BMPX, MG, CDP #### [facility] [address] [place] [address] Temperature Logging Operator: Josef Rivera MD GFR/1.73 sq M.predicted among non-blacks MDRD (S/P/Bld) [Vol rate/Area] mL/min/{1.73_m2} Normal >60 [facility] Comment on above: Result Comment: These [...] HO, BMPX, MG, CDP #### [facility] [address] [place] [address] Temperature Logging Operator: Jsoef Rivera MD Glucose [Mass/Vol] 100 mg/dL High 74-99 [facility] Comment on above: Performed By: #### P HO, BMPX, MG, CDP #### [facility] [address] [place] [address] Temperature Logging Operator: Josef Rivera MD Potassium [Moles/Vol] 3.4 mmol/L Low 3.7-5.3 [facility] Comment on above: Performed By: #### P HO, BMPX, MG, CDP #### [facility] [address] [place] [address] Temperature Logging Operator: Josef Rivera MD Sodium [Moles/Vol] 140 mmol/L Normal 136-145 [facility] Comment on above: Performed By: #### P HO, BMPX, MG, CDP #### [facility] [address] [place] [address] Temperature Logging Operator: Josef Rivera MD Urea nitrogen [Mass/Vol] 9 mg/dL Normal 6-20 [facility] Comment on above: Performed By: #### P HO, BMPX, MG, CDP #### [facility] [address] [place] [address] Temperature Logging Operator: Josef Rivera MD Basic Metabolic Panel w/ Ref galen to MGon 08-29-2024 Anion gap [Moles/Vol] 12 mmol/L 9 - 16 mmol/L [facility] Calcium [Mass/Vol] 8.9 mg/dL 8.6 - 10. 4 mg/dL [facility] Chloride [Moles/Vol] 106 mmol/L 98 - 10 7 mmol/L [facility] CO2 [Moles/Vol] 22 mmol/L 20 - 31 mmol/L [facility] Creatinine [Mass/Vol] 0.7 mg/dL 0.6 - 0.9 mg/dL [facility] Francisco Javier Gray Rate - PINF [facility] Comment on above: These results are [...] 100 mg/dL High 74 - 99 mg/dL [facility] Interpretation and review of laboratory results Abnormal [facility] Potassium [Moles/Vol] 3.4 mmol/L Low 3.7 - 5.3 mmol/L [facility] Sodium [Moles/Vol] 140 mmol/L 136 - 145 mmol/L [facility] Urea nitrogen [Mass/Vol] 9 mg/dL 6 - 20 mg/dL [facility] CBC with Auto Differentialon 08-29-2024 Basophils (Bld) [#/Vol] [facility] Basophils/100 WBC (Bld) 0 % 0 - 2 % [facility] Eosinophils (Bld) [#/Vol] 0.24 10*3/uL [facility] Eosinophils/100 WBC (Bld) 4 % 1 - 4 % [facility] Erythrocyte distribution width (RBC) [Ratio] 13.1 % 11.8 - 14.4 % [facility] Hematocrit (Bld) [Volume fraction] 35.8 % Low 36.3 - 47.1 % [facility] Hemoglobin (Bld) [Mass/Vol] 11.2 g/dL Low 11.9 - 15.1 g/dL [facility] Immature granulocytes (Bld) [#/Vol] [facility] Immature granulocytes/100 WBC (Bld) 0 % 0 [facility] Interpretation and review of laboratory results Abnormal [facility] Lymphocytes/100 WBC (Bld) 25 % 24 - 43 % [facility] Lymphocytes/100 WBC (Bld) 1.43 % [facility] MCH (RBC) [Entitic mass] 29.2 pg 25.2 - 33.5 pg [facility] MCHC (RBC) [Mass/Vol] 31.3 g/dL 28.4 - 34.8 g/dL [facility] MCV (RBC) [Entitic vol] 93.2 fL 82.6 - 102.9 fL [facility] Monocytes/100 WBC (Bld) 7 % 3 - 12 % [facility] Monocytes/100 WBC (Bld) 0.39 % [facility] Neutrophils/100 WBC (Bld) 63 % 36 - 65 % [facility] Nucleated RBC/100 WBC (Bld) [Ratio] 0.0 % 0.0 per 100 WBC [facility] Platelet mean volume (Bld) [Entitic vol] 9.2 fL 8.1 - 13.5 fL [facility] Platelets (Bld) [#/Vol] 318 10*3/uL [facility] RBC (Bld) [#/Vol] 3.84 10*6/uL Low 3.95 - 5.1 1 m/uL [facility] Segmented neutrophils/100 WBC (Bld) 3.62 % [facility] WBC other (Bld) [#/Vol] 5.7 [facility] CBC with Diffon 08-29-2024 Abs. Basophil <0.03 Normal 0.00-0.20 [facility] Comment on above: Performed By: #### P HO, BMPX, MG, CDP #### [facility] [address] [place] [address] Temperature Logging Operator: Josef Rivera MD Abs.Imm.Granulocyte <0.03 Normal 0.00-0.30 [facility] Comment on above: Performed By: #### P HO, BMPX, MG, CDP #### [facility] [address] [place] [address] Temperature Logging Operator: Josef Rivera MD Abs.Neutrophil (Seg) 3.62 k/uL Normal 1.50-8.10 [facility] Comment on above: Performed By: #### P HO, BMPX, MG, CDP #### [facility] [address] [place] [address] Temperature Logging Operator: Josef Rivera MD Basophils/100 WBC (Bld) 0 % Normal 0-2 [facility] Comment on above: Performed By: #### P HO, BMPX, MG, CDP #### [facility] [address] [place] [address] Temperature Logging Operator: Josef Rivera MD Eosinophils (Bld) [#/Vol] 0.24 10*3/uL Normal 0.00-0.44 [facility] Comment on above: Performed By: #### P HO, BMPX, MG, CDP #### [facility] [address] [place] [address] Temperature Logging Operator: Josef Rivera MD Eosinophils/100 WBC (Bld) 4 % Normal 1-4 [facility] Comment on above: Performed By: #### P HO, BMPX, MG, CDP #### [facility] [address] [place] [address] Temperature Logging Operator: Josef Rivera MD Erythrocyte distribution width (RBC) [Ratio] 13.1 % Normal 11.8-14.4 [facility] Comment on above: Performed By: #### P HO, BMPX, MG, CDP #### [facility] [address] [place] [address] Temperature Logging Operator: Josef Rivera MD Hematocrit (Bld) [Volume fraction] 35.8 % Low 36.3-47.1 [facility] Comment on above: Performed By: #### P HO, BMPX, MG, CDP #### [facility] [address] [place] [address] Temperature Logging Operator: Josef Rivera MD Hemoglobin (Bld) [Mass/Vol] 11.2 g/dL Low 11.9-15.1 [facility] Comment on above: Performed By: #### P HO, BMPX, MG, CDP #### [facility] [address] [place] [address] Temperature Logging Operator: Josef Rivera MD Immature granulocytes/100 WBC (Bld) 0 % Normal 0 [facility] Comment on above: Performed By: #### P HO, BMPX, MG, CDP #### [facility] [address] [place] [address] Temperature Logging Operator: Josef Rivera MD Lymphocytes (Bld) [#/Vol] 1.43 10*3/uL Normal 1.10-3.70 [facility] Comment on above: Performed By: #### P HO, BMPX, MG, CDP #### [address] [address] Temperature Logging Operator: Josef Rivera MD Lymphocytes/100 WBC (Bld) 25 % Normal 24-43 [facility] Comment on above: Performed By: #### P HO, BMPX, MG, CDP #### [facility] [address] [place] [address] Temperature Logging Operator: Josef Rivera MD MCH (RBC) [Entitic mass] 29.2 pg Normal 25.2-33.5 [facility] Comment on above: Performed By: #### P HO, BMPX, MG, CDP #### [facility] [address] [place] [address] Temperature Logging Operator: Josef Rivera MD MCHC (RBC) [Mass/Vol] 31.3 g/dL Normal 28.4-34.8 [facility] Comment on above: Performed By: #### P HO, BMPX, MG, CDP #### [address] [address] Temperature Logging Operator: Josef Rivera MD MCV (RBC) [Entitic vol] 93.2 fL Normal 82.6-102.9 [facility] Comment on above: Performed By: #### P HO, BMPX, MG, CDP #### [place] [address] Temperature Logging Operator: Josef Rivera MD Monocytes (Bld) [#/Vol] 0.39 10*3/uL Normal 0.10-1.20 [facility] Comment on above: Performed By: #### P HO, BMPX, MG, CDP #### [place] [address] Temperature Logging Operator: Josef Rivera MD Monocytes/100 WBC (Bld) 7 % Normal 3-12 [facility] Comment on above: Performed By: #### P HO, BMPX, MG, CDP #### [place] [address] Temperature Logging Operator: Josef Rivera MD Neutrophil (Seg) 63 % Normal 36-65 [facility] Comment on above: Performed By: #### P HO, BMPX, MG, CDP #### [place] [address] Temperature Logging Operator: Josef Rivera MD NRBC Automated 0.0 per 100 WBC Normal 0.0 [facility] Comment on above: Performed By: #### P HO, BMPX, MG, CDP #### [place] [address] Temperature Logging Operator: Josef Rivera MD Platelet mean volume (Bld) [Entitic vol] 9.2 fL Normal 8.1-13.5 [facility] Comment on above: Performed By: #### P HO, BMPX, MG, CDP #### [facility] [place] [address] Temperature Logging Operator: Josef Rivera MD Platelets (Bld) [#/Vol] 318 10*3/uL Normal 138-453 [facility] Comment on above: Performed By: #### P HO, BMPX, MG, CDP #### [facility] [address] [place] [address] Temperature Logging Operator: Josef Rivera MD RBC (Bld) [#/Vol] 3.84 10*6/uL Low 3.95-5.11 [facility] Comment on above: Performed By: #### P HO, BMPX, MG, CDP #### [facility] [address] [place] [address] Temperature Logging Operator: Josef Rivera MD WBC (Bld) [#/Vol] 5.7 10*3/uL Normal 3.5-11.3 [facility] Comment on above: Performed By: #### P HO, BMPX, MG, CDP #### [facility] [address] [place] [address] Temperature Logging Operator: Josef Rivera MD Glucose,Whole Bloodon 2023 Glucose [Mass/Vol] 112 mg/dL High 65-105 [facility] Glucose [Mass/Vol] 114 mg/dL High 65-105 [facility] Glucose [Mass/Vol] 104 mg/dL Normal 65-105 [facility] Glucose [Mass/Vol] 106 mg/dL High 65-105 [facility] Magnesiumon 08-29-2024 Magnesium [Mass/Vol] 2.1 mg/dL 1.6 - 2 .6 mg/dL [facility] Magnesium [Mass/Vol] 2.1 mg/dL Normal 1.6-2.6 [facility] Comment on above: Performed By: #### P HO, BMPX, MG, CDP #### [facility] [place] [address] Temperature Logging Operator: Josef Rivera MD No Panel Informationon 08-29 [facility] POC Glucose Fingerstickon Glucose [Mass/Vol] 112 mg/dL High 65 - 105 mg/dL [facility] Interpretation and review of laboratory results Abnormal [facility] Glucose [Mass/Vol] 114 mg/dL High 65 - 105 mg/dL [facility] Interpretation and review of laboratory results Abnormal [facility] Glucose [Mass/Vol] 104 mg/dL 65 - 105 mg/dL [facility] Interpretation and review of laboratory results Abnormal [facility] Phosphoruson 08-29-2024 Phosphate [Mass/Vol] 4.0 mg/dL 2.5 - 4 .5 mg/dL [facility] Phosphorus, Inorg.on 024 Phosphorus, Inorg. 4.0 mg/dL Normal 2.5-4.5 [facility] Comment on above: Performed By: #### P HO, BMPX, MG, CDP #### [facility] [place] [address] Temperature Logging Operator: Josef Rivera MD XR ABDOMEN (KUB) (SINGLE [...] likely within the antrum of the stomach. cruise agent leads overlie the upper abdomen. Iliac wings [...] Paco Richardson MD 08/29/24 Final result Normal [facility] XR Abdomen Single viewon 1. Moderate gaseous distention of the rectal vault. Gas and stool in the rectal vault. 2. Mild stool burden. No abnormally dilated small bowel loops. 3. NG tube distal tip overlying the medial right upper quadrant likely in the antrum of the stomach. [facility] EXAMINATION: ONE SUPINE XRAY VIEW(S) OF [...] likely within the antrum of the stomach. cruise agent leads overlie the upper abdomen. Iliac wings and pubic rami grossly unremarkable in appearance. [facility] Paco Richardson MD - 08/29/2024 EXAMINATION: [...] likely within the antrum of the stomach. cruise agent leads overlie the upper abdomen. Iliac wings and pubic rami grossly unremarkable in appearance. IMPRESSION: 1. Moderate gaseous distention of the rectal vault. Gas and stool in the rectal vault. 2. Mild stool burden. No abnormally dilated small bowel loops. 3. NG tube distal tip overlying the medial right upper quadrant likely in the antrum of the stomach. [facility] Radiology Study observation (narrative) [facility] XR Abdomen Single viewOrdere d By: Paco Richardson on 08-29-2024 [facility] Work Phone: CBC with Auto Differentialon 08-28-2024 Basophils (Bld) [#/Vol] [facility] Basophils/100 WBC (Bld) 0 % 0 - 2 % [facility] Eosinophils (Bld) [#/Vol] 0.05 10*3/uL [facility] Eosinophils/100 WBC (Bld) 1 % 1 - 4 % [facility] Erythrocyte distribution width (RBC) [Ratio] 13.1 % 11.8 - 14.4 % [facility] Hematocrit (Bld) [Volume fraction] 37.2 % 36.3 - 47.1 % [facility] Hemoglobin (Bld) [Mass/Vol] 11.9 g/dL 11.9 - 15.1 g/dL [facility] Immature granulocytes (Bld) [#/Vol] 0.03 10*3/uL [facility] Immature granulocytes/100 WBC (Bld) 0 % 0 [facility] Interpretation and review of laboratory results Abnormal [facility] Lymphocytes/100 WBC (Bld) 11 % Low 24 - 43 % [facility] Lymphocytes/100 WBC (Bld) 0.99 % Low [facility] MCH (RBC) [Entitic mass] 29.5 pg 25.2 - 33.5 pg [facility] MCHC (RBC) [Mass/Vol] 32.0 g/dL 28.4 - 34.8 g/dL [facility] MCV (RBC) [Entitic vol] 92.3 fL 82.6 - 102.9 fL [facility] Monocytes/100 WBC (Bld) 5 % 3 - 12 % [facility] Monocytes/100 WBC (Bld) 0.40 % [facility] Neutrophils/100 WBC (Bld) 83 % High 36 - 65 % [facility] Nucleated RBC/100 WBC (Bld) [Ratio] 0.0 % 0.0 per 100 WBC [facility] Platelet mean volume (Bld) [Entitic vol] 9.2 fL 8.1 - 13.5 fL [facility] Platelets (Bld) [#/Vol] 359 10*3/uL [facility] RBC (Bld) [#/Vol] 4.03 10*6/uL 3.95 - 5.1 1 m/uL [facility] Segmented neutrophils/100 WBC (Bld) 7.44 % [facility] WBC other (Bld) [#/Vol] 8.9 [facility] CBC with Diffon 08-28-2024 Abs. Basophil <0.03 Normal 0.00-0.20 [facility] Comment on above: Performed By: #### C P, CDP #### [place] [address] Temperature Logging Operator: Josef Rivera MD Abs.Imm.Granulocyte 0.03 k/uL Normal 0.00-0.30 [facility] Comment on above: Performed By: #### C P, CDP #### [address] [address] Temperature Logging Operator: Josef Rivera MD Abs.Neutrophil (Seg) 7.44 k/uL Normal 1.50-8.10 [facility] Comment on above: Performed By: #### C P, CDP #### [place] [address] Temperature Logging Operator: Josef Rivera MD Basophils/100 WBC (Bld) 0 % Normal 0-2 [facility] Comment on above: Performed By: #### C P, CDP #### [place] [address] Temperature Logging Operator: Josef Rivera MD Eosinophils (Bld) [#/Vol] 0.05 10*3/uL Normal 0.00-0.44 [facility] Comment on above: Performed By: #### C P, CDP #### [address] [address] Temperature Logging Operator: Josef Rivera MD Eosinophils/100 WBC (Bld) 1 % Normal 1-4 [facility] Comment on above: Performed By: #### C P, CDP #### [address] [address] Temperature Logging Operator: Josef Rivera MD Erythrocyte distribution width (RBC) [Ratio] 13.1 % Normal 11.8-14.4 [facility] Comment on above: Performed By: #### C P, CDP #### [address] [address] Temperature Logging Operator: Josef Rivera MD Hematocrit (Bld) [Volume fraction] 37.2 % Normal 36.3-47.1 [facility] Comment on above: Performed By: #### C P, CDP #### [address] [address] Temperature Logging Operator: Josef Rivera MD Hemoglobin (Bld) [Mass/Vol] 11.9 g/dL Normal 11.9-15.1 [facility] Comment on above: Performed By: #### C P, CDP #### [address] [address] Temperature Logging Operator: Josef Rivera MD Immature granulocytes/100 WBC (Bld) 0 % Normal 0 [facility] Comment on above: Performed By: #### C P, CDP #### [address] [address] Temperature Logging Operator: Josef Rivera MD Lymphocytes (Bld) [#/Vol] 0.99 10*3/uL Low 1.10-3.70 [facility] Comment on above: Performed By: #### C P, CDP #### [address] [address] Temperature Logging Operator: Josef Rivera MD Lymphocytes/100 WBC (Bld) 11 % Low 24-43 [facility] Comment on above: Performed By: #### C P, CDP #### [place] [address] Temperature Logging Operator: Josef Rivera MD MCH (RBC) [Entitic mass] 29.5 pg Normal 25.2-33.5 [facility] Comment on above: Performed By: #### C P, CDP #### [place] [address] Temperature Logging Operator: Josef Rivera MD MCHC (RBC) [Mass/Vol] 32.0 g/dL Normal 28.4-34.8 [facility] Comment on above: Performed By: #### C P, CDP #### [place] [address] Temperature Logging Operator: Josef Rivera MD MCV (RBC) [Entitic vol] 92.3 fL Normal 82.6-102.9 [facility] Comment on above: Performed By: #### C P, CDP #### [place] [address] Temperature Logging Operator: Josef Rivera MD Monocytes (Bld) [#/Vol] 0.40 10*3/uL Normal 0.10-1.20 [facility] Comment on above: Performed By: #### C P, CDP #### [address] [address] Temperature Logging Operator: Josef Rivera MD Monocytes/100 WBC (Bld) 5 % Normal 3-12 [facility] Comment on above: Performed By: #### C P, CDP #### [address] [address] Temperature Logging Operator: Josef Rivera MD Neutrophil (Seg) 83 % High 36-65 [facility] Comment on above: Performed By: #### C P, CDP #### [address] [address] Temperature Logging Operator: Josef Rivera MD NRBC Automated 0.0 per 100 WBC Normal 0.0 [facility] Comment on above: Performed By: #### C P, CDP #### [address] [address] Temperature Logging Operator: Josef Rivera MD Platelet mean volume (Bld) [Entitic vol] 9.2 fL Normal 8.1-13.5 [facility] Comment on above: Performed By: #### C P, CDP #### [address] [address] Temperature Logging Operator: Josef Rivera MD Platelets (Bld) [#/Vol] 359 10*3/uL Normal 138-453 [facility] Comment on above: Performed By: #### C P, CDP #### [address] [address] Temperature Logging Operator: Josef Rivera MD RBC (Bld) [#/Vol] 4.03 10*6/uL Normal 3.95-5.11 [facility] Comment on above: Performed By: #### C P, CDP #### [address] [address] Temperature Logging Operator: Josef Rivera MD WBC (Bld) [#/Vol] 8.9 10*3/uL Normal 3.5-11.3 [facility] Comment on above: Performed By: #### C P, CDP #### [address] [address] Temperature Logging Operator: Josef Rivera MD Comp Metabolic Profon 2023 Albumin [Mass/Vol] 4.2 g/dL Normal 3.5-5.2 [facility] Comment on above: Performed By: #### P HO, BMPX, MG, CDP #### [facility] [address] [place] [address] Temperature Logging Operator: Josef Rivera MD Albumin/Glob Ratio 1.4 Normal 1.0-2.5 [facility] Comment on above: Performed By: #### P HO, BMPX, MG, CDP #### [facility] [address] [place] [address] Temperature Logging Operator: Josef Rivera MD Alkaline Phos 162 U/L High 35-104 [facility] Comment on above: Performed By: #### P HO, BMPX, MG, CDP #### [facility] [address] [place] [address] Temperature Logging Operator: Josef Rivera MD ALT [Catalytic activity/Vol] 14 U/L Normal 10-35 [facility] Comment on above: Performed By: #### P HO, BMPX, MG, CDP #### [facility] [address] [place] [address] Temperature Logging Operator: Josef Rivera MD Anion gap [Moles/Vol] 11 mmol/L Normal 9-16 [facility] Comment on above: Performed By: #### P HO, BMPX, MG, CDP #### [facility] [address] [place] [address] Temperature Logging Operator: Josef Rivera MD AST [Catalytic activity/Vol] 23 U/L Normal 10-35 [facility] Comment on above: Performed By: #### P HO, BMPX, MG, CDP #### [facility] [address] [place] [address] Temperature Logging Operator: Josef Rivera MD Bilirubin [Mass/Vol] 0.2 mg/dL Normal 0.0-1.2 [facility] Comment on above: Performed By: #### P HO, BMPX, MG, CDP #### [facility] [address] [place] [address] Temperature Logging Operator: Josef Rivera MD Calcium [Mass/Vol] 9.4 mg/dL Normal 8.6-10.4 [facility] Comment on above: Performed By: #### P HO, BMPX, MG, CDP #### [facility] [address] [place] [address] Temperature Logging Operator: Josef Rivera MD Chloride [Moles/Vol] 104 mmol/L Normal 98-107 [facility] Comment on above: Performed By: #### P HO, BMPX, MG, CDP #### [facility] [address] [place] [address] Temperature Logging Operator: Josef Rivera MD CO2 [Moles/Vol] 23 mmol/L Normal 20-31 [facility] Comment on above: Performed By: #### P HO, BMPX, MG, CDP #### [facility] [address] [place] [address] Temperature Logging Operator: Josef Rivera MD Creatinine [Mass/Vol] 0.7 mg/dL Normal 0.6-0.9 [facility] Comment on above: Performed By: #### P HO, BMPX, MG, CDP #### [facility] [address] [place] [address] Temperature Logging Operator: Josef Rivera MD GFR/1.73 sq M.predicted among non-blacks MDRD (S/P/Bld) [Vol rate/Area] mL/min/{1.73_m2} Normal >60 [facility] Comment on above: Result Comment: These [...] P HO, BMPX, MG, CDP #### [facility] [address] [place] [address] Temperature Logging Operator: Josef Rivera MD Glucose [Mass/Vol] 115 mg/dL High 74-99 [facility] Comment on above: Performed By: #### P HO, BMPX, MG, CDP #### [facility] [address] [place] [address] Temperature Logging Operator: Josef Rivera MD Potassium [Moles/Vol] 4.3 mmol/L Normal 3.7-5.3 [facility] Comment on above: Performed By: #### P HO, BMPX, MG, CDP #### [facility] [address] [place] [address] Temperature Logging Operator: Josef Rivera MD Protein [Mass/Vol] 7.1 g/dL Normal 6.6-8.7 [facility] Comment on above: Performed By: #### P HO, BMPX, MG, CDP #### [facility] [address] [place] [address] Temperature Logging Operator: Josef Rivera MD Sodium [Moles/Vol] 138 mmol/L Normal 136-145 [facility] Comment on above: Performed By: #### P HO, BMPX, MG, CDP #### [facility] [address] [place] [address] Temperature Logging Operator: Josef Rivera MD Urea nitrogen [Mass/Vol] 9 mg/dL Normal 6-20 [facility] Comment on above: Performed By: #### P HO, BMPX, MG, CDP #### [facility] [address] [place] [address] Temperature Logging Operator: Josef Rivera MD [facility] 08-28-2024 Albumin [Mass/Vol] 4.2 g/dL 3.5 - 5.2 g/dL [facility] Albumin/Globulin [Mass ratio] 1.4 {ratio} 1.0 - 2.5 [facility] ALP [Catalytic activity/Vol] 162 U/L High 35 - 104 U/L [facility] ALT [Catalytic activity/Vol] 14 U/L 10 - 35 U/L [facility] Anion gap [Moles/Vol] 11 mmol/L 9 - 16 mmol/L [facility] AST [Catalytic activity/Vol] 23 U/L 10 - 35 U/L [facility] Bilirubin [Mass/Vol] 0.2 mg/dL 0.0 - 1 .2 mg/dL [facility] Calcium [Mass/Vol] 9.4 mg/dL 8.6 - 10. 4 mg/dL [facility] Chloride [Moles/Vol] 104 mmol/L 98 - 10 7 mmol/L [facility] CO2 [Moles/Vol] 23 mmol/L 20 - 31 mmol/L [facility] Creatinine [Mass/Vol] 0.7 mg/dL 0.6 - 0.9 mg/dL [facility] Francisco Javier Gray Rate - PINF [facility] Comment on above: These results are [...] 115 mg/dL High 74 - 99 mg/dL [facility] Interpretation and review of laboratory results Abnormal [facility] Potassium [Moles/Vol] 4.3 mmol/L 3.7 - 5.3 mmol/L [facility] Protein [Mass/Vol] 7.1 g/dL 6.6 - 8.7 g/dL [facility] Sodium [Moles/Vol] 138 mmol/L 136 - 145 mmol/L [facility] Urea nitrogen [Mass/Vol] 9 mg/dL 6 - 20 mg/dL [facility] Glucose,Whole Bloodon 2023 Glucose [Mass/Vol] 100 mg/dL Normal 65-105 [facility] Lactic Acidon 08-28-2024 Lactic Acid, Whole Blood 1.2 mmol/L 0.7 - 2.1 mmol/L [facility] Lactic Acid,Whole Bl 1.2 mmol/L Normal 0.7-2.1 [facility] Comment on above: Performed By: #### P HO, BMPX, MG, CDP #### [facility] [address] [place] [address] Temperature Logging Operator: Josef Rivera MD Magnesiumon 08-28-2024 Magnesium [Mass/Vol] 2.1 mg/dL 1.6 - 2 .6 mg/dL [facility] Magnesium [Mass/Vol] 2.1 mg/dL Normal 1.6-2.6 [facility] Comment on above: Performed By: #### M G #### [facility] [address] [place] [address] Temperature Logging Operator: Josef Rivera MD POC Glucose Fingerstickon Glucose [Mass/Vol] 100 mg/dL 65 - 105 mg/dL [facility] XR ABDOMEN (KUB) (SINGLE AP [...] Rashaad Lopez MD 08/28/24 Final result Normal [facility] XR Abdomen Single viewon 1. Nonobstructive marium wel gas pattern. 2. Mild left lower lobe infiltrate, which could represent pneumonia. [facility] EXAMINATION: ONE SUPINE XRAY VIEW(S) OF [...] could represent pneumonia. Bony structures appear normal. [facility] Rashaad Lopez MD - 08/28/2024 EXAMINATION: [...] lower lobe infiltrate, which could represent pneumonia. [facility] Radiology Study observation (narrative) [facility] XR Abdomen Single viewOrdere d By: Rashaad Lopez on 08-28-2024 [facility] Work Phone: Glucose (Bld) [Mass/Vol]on 09-12-2023 Glucose Blood, POC 90 mg/dL [facility] - Hematology and Cell countson 07-13-2024 HbA1c (Bld) [Mass fraction] 5.6 % [facility] No Panel Informationon 07-13 Interpretation and review of laboratory results Normal [facility] Glucose (Bld) [Mass/Vol]Orde red By: Beverly Clemons on 06-20-2024 Glucose Blood, POC 101 mg/dL [facility] - Hematology and Cell countson 06-20-2024 HbA1c (Bld) [Mass fraction] 5.8 % [facility] No Panel InformationOrdered By: Beverly Clemons on 06-20-2024 [facility] Healthcare Office Visiton 05-14-2024 Follow-up visit [id number] Marly Cardoso 1970 F Date Provider Department Center 05/14/2024 [id number] KINCAID MICHAEL Zhao Family History Problem Relation Age of Onset Heart attack Father Family Status - Relation Status Age at Father Level of Service:57758 [facility] OFFICE/OUTPATIENT ESTABLISHED MOD MDM 30 MIN Reason for Visit and Comments: Hypertension [312553] - Patient here for 2 mo follow up. She was started on lisinopril 10mg daily at last visit. She presented to the ED last month for abdominal pain. EKG was done and showed bradycardia. Palpitations [067400] - Not as bad, still has them Shortness of Breath [866020] - Improving Normal [facility] [place] 05-11-2024 L Specimen: [id number] Received: 05/11/24 Status: XAVI Juarez Num: [id number] Spec Type: Surgical Subm Dr: Jennie Ayon MD Tissues: A GASTRIC FOR HP (GASTRIC R/O H PYLORI) B Esophagus Biopsy (ESOPHAGUS BX R/O BARRETTS) Procedures: HE/4, Gross/Micro L4/2, H PYLORI Age/ Patient Sex Location Account Attending Physician Constantino Cardoso 53/F [id number] Jennie Ayon MD SPEC NUM: [id number] RECD: 05/11/24 STATUS: XAVI NOLASCOPacheco NUM: [id number] HAYDEN: 05/11/[address]: Jennie Ayon MD ENTERED: 05/11/[address]: SPEC TYPE: Surgical DEPT: S ENTERED BY: [id number] RECV BY: [id number] ORDERED: HE/4, Gross/Micro L4/2, H PYLORI ORDERED: HE/4, Gross/Micro L4/2, H PYLORI Supplemental Report Addendum 2 Entered: 05/18/24 Supplemental to add CPT code of immunostain: A, CPT: 61480 Addendum Signed (signature on file) Robby Smyth MD 05/18/241707 Addendum 1 Entered: 05/18/24 Supplemental for findings of H. pylori immunostain: A, -H. pylori immunostain with appropriate control is negative for identified Helicobacter organism or infection Specimen: [id number] Received: 05/11/24 Status: ALEXISBrit Juarez Num: [id number] Spec Type: Surgical Subm Dr: Jennie Ayon MD Tissues: A GASTRIC FOR HP (GASTRIC R/O H PYLORI) B Esophagus Biopsy (ESOPHAGUS BX R/O BARRETTS) Procedures: HE/4, Gross/Micro L4/2, H PYLORI Patient: Constantino Cardoso [id number] (Continued) Specimen: [id number] Received: 05/11/24 (Continued) Supplemental Report (Continued) Signed (signature on file) Robby Smyth MD 05/17/24 1326 Specimen: [id number] Received: 05/11/24 Status: XAVI Juarez Num: [id number] Spec Type: Surgical Subm Dr: Jennie Ayon MD Tissues: A GASTRIC FOR HP (GASTRIC R/O H PYLORI) B Esophagus Biopsy (ESOPHAGUS BX R/O BARRETTS) Procedures: HE/4, Gross/Micro L4/2, H PYLORI Patient: Constantino Cardoso [id number] (Continued) Specimen: [id number] Received: 05/11/24 (Continued) Supplemental Report (Continued) Addendum [...] are performed supporting the above interpretation Specimen: [id number] Received: 05/11/24 Status: XAVI Juarez Num: [id number] Spec Type: Surgical Subm Dr: Jennie Ayon MD Tissues: A GASTRIC FOR HP (GASTRIC R/O H PYLORI) B Esophagus Biopsy (ESOPHAGUS BX R/O BARRETTS) Procedures: HE/4, Gross/Micro L4/2, H PYLORI Patient: Constantino Cardoso [id number] (Continued) Specimen: [id number] Received: 05/11/24-1431 (Continued) Signed (signature on file) Robby Smyth MD 05/17/24 1326 Specimen: [id number] Madeleine (more content not included)... Normal [facility] Reminderson 04-09-2024 Reminders Reminders From: Ani Jackson To: EU - Administrative; Sent: 02/16/2024 09:54:18 EDT Show up: 03/05/2024 09:54:00 EDT Subject: Ambulatory Reminder Due Date/Time: 05/20/2024 09:54:00 EDT Reminder/Recall Patient needs scheduled for a 3 month f/u with AO in [place], due back mid May. LVM FOR PATIENT TO CALL AND SCHEDULE APPT Pt called back and scheduled appt. Normal [facility] Office Visiton 03-19-2024 Follow-up visit [id number] Marly Cardoso 1970 F Date Provider Department Center 03/19/2024 EDISON GRACE MICHAEL [facility] Family History Problem Relation Age of Onset Heart attack Father Family Status - Relation Status Age at Father Level of Service:18424 [place] OFFICE/OUTPATIENT ESTABLISHED MOD MDM 30 MIN Normal [facility] Coding Summary.on 02-25-2024 Coding Summary. STTXEqgp87YRy8dSt+PG hlYWQ +YC2MDXCwT26sfRPhtM6pE8KO TElOSywgQVBQTElOSyIgbmFtZ V5rkAOgCCXg IC8+AR9lSMJvPcctwZEdp0T5q SJ7F18gdm4pJQasjYF0ZQBeZz Lukcigo6crwVo5BSwnNgdhJrX t BICpnL58KOR0kJ69Yd78nLXht UUut0jcfJc7DiEhMSZzLXL1zQ ytJFvxf8HwZYDvQ22ozUSev4R 6 PRVybCsjpQXyExCylJI3tQ4pT Acvaotxy8gwsywrXjg4of89gV Yyr1T2cLS0M4WtjjO9RUWgsEE g MwzguSHYmT3hxqahf9bihmxmY jXfVRVxUKp5IGc4IXBtnDlhUt XlBG54BEE2ZSOekePyT5ThXRO s aEunLeB7v0B2Dd8AG0WQRvloS 1VNTUFSWTwvdGQ+NO60bv99J1 AlAusvBhh4LZKyAUI4oCP4xA1 n GUJzMGzwq9B9wPQ3M6ZyvlLov r0on6deHKKcDTucS56eeMCak3 V2HJRssCF2HBGpaHgrNdElzT7 3 Oyc+CXPisDapm3DdCnnne5txc 4dxpYx5JohyAXOrfkTewWuhXG M5m0ClMp8bWHIdtAO7fJA5gX3 i UmLzUoI5TGnqG127SnRmtWMsX ahhB51fX2CjfYN+KFRwYpe1ZP BehAxsUU3qL9HsRMJcgwxiqVD m qDhtGS6rTRCfettxHAUcfT3mD IUbY3b3FhClIvN7WUyiN5JhEY JrrulxEm41pM2qKdFsBfJ4NUm u D4FisrH3CFFbgOIeTVruGFX9R 04sr5G2TTVzXSCiIBM3kMY6bZ 1hbGlnbjogbGVmdDsgdmVydGl j EMypWBwnF407CFKhlFazZjZfM GluZyBEYXRlOiAgMDYvMjIvMj AyNDwvdGQ+BHVhKZX1oHsfTTO n wCRzLFhdWs2rmHpprQvcEN7dA GDgkmxbDCHegT3cRLYwsDTmzJ tmXC4eVQGbreotv667FsQqNTZ 0 KCZlsBLiQ1NjxN8fRbBfZUCuD ZCnO3IgzOJbIOmbY193IOxlGg I7LWRcavHlM2ArTMCycLeoTiI 0 j7I9Zh6Jg9FvvynvH3IrsDPaY wCeUrkeIBy5B5NpBwpozJZ+PC 91MQCpAC24WLi8WZV7vOzaSKl i TWOxM1ZwlY3oEdHgEQZxWRPkL yc+PHRhYmxlIHdpZHRoPScxMD EnZuYjfHswWV1kMj0cDUTnVLP v cBakqLEbAiEla5qhNOFqQItlP L4kpXkiD8DloOI0ITZfq8x0Vr 73B94dJ9DbyUT+BQDicKV1iGR 0 wV0cAbLhVdT2KHfxA871MiWgi KIlRypph3tyj5ndiTz4KrB1FS CslfGuySbnYYQ5g2AnAt95E35 s IHdpZHRoPSIxNSUiIHZhbGlnb j5rfI0tGs0+TRWexJB8hDX4lZ 6oEpDxHeY1FUxvQ975WySmoOZ v Vxtwq7gfw7kupIu1WaVnDGXbb uQgrIozQTG0g5TyMt09Y6ZjfQ swj8VvLoi7aq97jGPml6A5kFT 9 L5UdFDQzjnljjZMubSraNG5bU BIduxitOXRqtY9uXLZfB5y9Lz FuUbO2TUkuI7KkarE4RUMpyPX g UIGcuTYGnC8yexhys4iyjalrW pGxQFRrSTv9THr5XLBskZysRw SjSNW7UsQ6PDU9jSKilK0coFm n apuvmT3qTxz+MEH6yJAnyYHFA A5lSacshQE+DQSgHSV7wIdhKF urGXFbtX3kFGVkT2t5DdKkJzI 1 DVhhN3DnrwF2RZRhpIEsVRScb RFBqZ3yddnlg6aeuhcsZrJyXT CuBLw9FBf3YYMdlHuzOoCtDOE 0 RxW9UEM2bCWgcG3qsCxcjsreo G9wOyc+GrcrzDvjBLS1FSb0Z0 JbGzd6RKIifGdoRL2pdJIbIXd u Qg0irXeirSztXC2bOZPsbtktk 087VyFpf7ocIMIreGRkRSrhPR C6E52xa1N2GHCcNWEpLZE4eWW 4 aT6xbEkbjfglvGAtoTgdohBzo IkyIXxgMMupJ629EBWiaGznFv MxMLl6J2YwBdq6JUOgkTrzPF2 n zEOxRIahHo4hlCmybWpiZP4xE NSzxcgae507XyBqg1hgXERmvT SaVNcrKTZ7Q78hl3X0DWUrQDH w AYJ0pTV1kY8onVnztjylrTJig BnhjeDdzEtlEMcdWVpfW604EQ WizQjoRjWzfVx9S1NsMsp3PWM z kYmpIA9msSNtORacIz8auMsos XgfDZ2qTHNrpjvji240OwPxz6 xgAAYidNNqKWgrDIF1U09zi4D 6 USVlNNSaQUC4wBH1cP9amKdon jogbGVmdDsgdmVydGljYWwtYW gaG323JXEjeNsiJnHiiYxtxfB g LZhuEDb9O2NaTkjanXU+PC90Y DPnQZ56xTYjpYKrv9ydkVw6Ip QfKPOtCRW5bBpmQLnxc4QqEMI t O64hkMTgn9E1RQBwlXwwuBMjB iTvlOV9zH1mPWdehfuqw7hezp bnSuetc0ahko73hA80X50hRUd p LWMmQLJlTJJvPKExgMtdde2ny G9wIi8+YQMosDO9yRX6xL9mTR MhCiT1JQisJ076RpIsfUTqJtr j y4ykf0hekPe5SyL2PDSkmcLst XhmOMZ3w6BhRi72T22iMGhuSX KeXENxYLPxFZErnQbtyc2bwA4 w Ii8+QGOzzWV7uDH3aC9gFdQlN uU7BFrtW024HwQfrLMmKzdsU3 0qB0RxxBP+VAAaCha9MHLpzAn s NB0ocSVhKIdtOp5nAGB6FkJsR wHdWOyjY8ClYHIgrujksctqfE V5TIMhDQSctM95Pn8tdOlwWYA w nYYNuL0codxeu0lfiuvbIjEpH ILnMLl1HMf7MGXzyXnrKxYxTX U5PjY0NXL2bHBbmR2iiHojfqi g yQ1yQ1ZnNXXargqcXg94uD3jU jBqJrV6ETjlZdc+E8PYBOsgOF NXOTjBNU0FVTKUUK16HR20yTJ g l7C2rIT0I2JjTNIofladvllic YO4UUPqVDZzpD00aRCeBBmbVp 8rz3B3c755UFMwNTFpsF82Ft5 u uKhwEQCcuDCIlM6pndkzr5jmf rmdUuRwLIVtNAg5LCc8NMKwvW fdVlRyKPW8HcP5IAM6wNLhaS7 h bPwkhriepT4aTwl+MDkvMjMvM Ts8MOaxxUL+YRReUMT9wFgtRY ibOWSjhY2aXLWrS4j1LhKgPdI 1 TSxiJ3TmCUWuohlaJb17kW1kH aMoOwF7RQbxO9DwfdC5FGKfjN MbJZysTVA4I54ed0P5BYZqFHC w RKM0jUX0nX9gcKhfhasxsYZvp AnnsrBbkZucIFldTUfyS642WT RlbNioAaEgEKirBNZqYH36DD4 8 nKDpp8O5zUX2F0DdJNBnpfggt cpifAN0GVTcMNTbkQ17xBQqUB djQi1bl0A8r458SVRvILVrxH0 7 Dj9vkSdnNQOghRTLcV0wiagjj 6vvstgeSvSqUSEfASo1HTz1BM HioFzvElIvQRY6UzW7ZDD7qZR h gB9zgNjciuuwtV4aZml+RmVtY FeiWI30UW98vVHtf6Z4cPJ1Z5 TwUGQrbxonjvphuOT1IHYaNJS w iD35uCNrDUkbTy3dg6C6y740T ZLxVSIjkZ19Eh1mkFvcXYNybE VLjG2bpdfyj6uzvgsaZySkLXV w RBm4UFp2LKTuyKfaStEdCPL1S uY4DYB2nWVtxB4zpHdkhotgkQ 9wOyc+BYVqJYGen2Upp1CwKP1 0 TX56T0JjKcucvLAftZJ+PHRhY mxlIHdpZHRoPScxMDAlJyBzdH kdYA5sCl6dAKHfRMLjkReshQA l GsXns3qcGMPoOMmyMD4bdTinW 9HcyFM9OYDkf0z9Xs42N91zQ7 JvdXA+HSBloTV4zWY6aQ1cWmK l ZoW4OZseK550VmJolLHjTgxcu 8xee7fqzTp3GwBpXBMpetPndF csCIF3a8EuCw34R66oBMdhIVW o NUUbYASaVKQtsYbwvx2bmW6nI i8+VOLfvUV8xSM7oV1jJuCxVr B2JAgyV625OxQymWJoCcijM60 s B6GrbVB+GAMyVgz9VSEorVkxM W8feDWvMMklFu5vPEK9DpWcSl QpJUtmZ5PkNIArctrfsieuvOK 6 AAEfXPMhbQ13Ir2eiUorZy7fB GRdMYW1YQXmpUWeT8HzzV6uPt LcRURrOMNwB2LxgKPpSStnJ96 6 QAeoVuL1ZOSoqaQqE5UzTBQvq RsyNlB6l5Y3Ek0JbWcpkBIlWJ 7dKmEmQEx7B6FtEez5BAParFe s FC3oeKVkJPqgUp2ymMnbeWxqC S8mJCJyaaboe283MzAmz2hcPH FbpXTiULhjKWM1W26or3K0JBG w EZMtQDW3gAH4oL8izBrczihdl GVmdDsgdmVydGljYWwtYWxpZ2 84XFKjxBfrYtOQJcc5P8HqUid 0 PYRljBwtNJ0osFTsCPubDq0nz VhbaHqbRW2fHTGnyujie483Ym Lst9ktPKNnyMFgSMsrXSS5K23 s j5I0HTTqDLKsSBB5uPR8sS0xq GlnbjogbGVmdDsgdmVydGljYW mzEQuiU898FDWkhQduBf4MIru 8 L1QnRgw6TWNinTtxEX1teAAbH VnxYp6nmFhkfXaeTY4zFYRmeo hoo771WzBxh4ddFKCuoTXyDWq t QCH5P61hi0A9XWHaONOeWKL0q PR8fT1heVdplfqpwHFbqKpfoj ZfjBjrIBokYOjeI508XTOwiRu n PlBheWVyOjwvdGQ+GJ47rf81T 7UvPnbuIyx5XKVwYEE8yFL9pM 5zZOWzEQqps9N7rHO9E3QwteZ l jk0cm7prXTIpO (more content not included)... Normal [facility] Patient Educationon 02-21-20 Patient Education [...] this condition includes: ? Antibiotic medicine. ? Fqtr-euy-ujowqcw medicines to treat discomfort. ? Drinking enough [...] these instructions at home: Medicines ? Take mizf-beh-hqulwjm and prescription medicines only as told by [...] Document Revie (more content not included)... Normal [facility] Urology Office/Clinic Noteon 02-21-2024 Urology [...] with voice recognition artificial intelligence software, specifically [employer], [employer] and or [employer]. Substitutions may have occurred due to the [...] yes avoids baths/hot tubs yes avoids scented [employer] products yes urinates after sexual activity yes [...] of patients. (more content not included)... Normal [facility] Comment on above: Result Comment: Elec tronically Signed By: RUDY Lou APRN, Yolanda Tejada\.br\Date and Time Signed: 02/21/24 23:19 EDT C Urineon 02-18-2024 Bacteria identified Cx Nom (U) Microbiology PROCEDURE: Urine Culture [R1] SOURCE: U CleanCatch BODY SITE: COLLECTED DATE/TIME: 02/16/2024 10:01 EDT RECEIVED DATE/TIME: 02/16/2024 14:33 EDT START DATE/TIME: 02/16/2024 14:33 EDT FREE TEXT SOURCE: Orzech VASCULAR RADIOLOGIST, CRIMINAL JUDGE-C, Orzech VASCULAR RADIOLOGIST, CRIMINAL JUDGE-C, Yolanda X Yolanda X FINAL REPORTS Final [...] This test was performed at: [facility], [address] [place] [address], [facility] , , [facility] Comment on above: Performed By: #### 2 [id number] #### [facility] [address] [place] [address] Lab Reportson 02-17-2024 Lab Reports [id number]#1.00TIFF [facility] RAD - Ultrasound Reporton RAD - Ultrasound Report [id number]#1.00TIFF [facility] Screenson 02-17-2024 Screens [id number]#1.00TIFF [facility] URINALYSISOrdered By: SYSTEM SYSTEM on 02-16-2024 Bilirubin Ql (U) Negative Normal Negativemg/ dL [facility] UA Auto SS Clarity (U) Clear (02/16/24 10:01 AM) Normal Clear [facility] UA Auto SS Color (U) Light-Yellow 1 (02/16/24 10:01 AM) Normal Yellow [facility] UA Auto SS Comment on above: Interpretive Data: M icroscopic readings are only performed on those samples that meet specific criteria set forth by [facility]. Epithelial cells.squamous Auto (Urine [...] [facility] UA Auto SS Urinalysis with Microon 02-03 Bilirubin Ql (U) Negative Normal Negative [facility] Comment on above: Performed By: #### 4 [id number] #### [facility] [address] [place] [address] Clarity (U) Clear Normal Clear [facility] Comment on above: Performed By: #### 4 [id number] #### [facility] [address] [place] [address] Color (U) Light-Yellow Normal Yellow [facility] Comment on above: Result Comment: Micr oscopic readings are only performed on those samples that meet specific criteria set forth by [facility]. Performed By: #### 4 [id number] #### [facility] [address] [place] [address] Epithelial cells.squamous Auto (Urine sed) [#/Area] 0-2 Invalid Interpretation Code [facility] Comment on above: Performed By: #### 4 [id number] #### [facility] [address] [place] [address] Glucose Ql (U) Negative Normal Negative [facility] Comment on above: Performed By: #### 4 [id number] #### [facility] [address] [place] [address] Hemoglobin Auto test strip (U) [Mass/Vol] 1+ mg/dL Abnormal Negative [facility] Comment on above: Performed By: #### 4 [id number] #### [facility] [address] [place] [address] Ketones Auto test strip Ql (U) Negative Normal Negative [facility] Comment on above: Performed By: #### 4 [id number] #### [facility] [address] [place] [address] Leukocyte esterase Auto test strip Ql (U) 75 Morgan/uL Abnormal Negative [facility] Comment on above: Performed By: #### 4 [id number] #### [facility] [address] [place] [address] Mucus Auto Ql (U) Trace Normal Negative [facility] Comment on above: Performed By: #### 4 [id number] #### [facility] [address] [place] [address] Nitrite Auto test strip Ql (U) Negative Normal Negative [facility] Comment on above: Performed By: #### 4 [id number] #### [facility] [address] [place] [address] pH (U) 5.5 [pH] Invalid Interpretation Code 5.0-9.0 [facility] Comment on above: Performed By: #### 4 [id number] #### [facility] [address] [place] [address] Protein Ql (U) Negative Normal Negative [facility] Comment on above: Performed By: #### 4 [id number] #### [facility] [address] [place] [address] RBC Ql (U) 0-3 Normal 0-3 [facility] Comment on above: Performed By: #### 4 [id number] #### [facility] [address] [place] [address] Specific gravity (U) [Rel density] 1.021 Invalid Interpretation Code 1.005-1.030 [facility] Comment on above: Performed By: #### 4 [id number] #### [facility] [address] [place] [address] Urobilinogen (U) [Mass/Vol] Negative Normal Negative [facility] Comment on above: Performed By: #### 4 [id number] #### [facility] [address] [place] [address] WBC Auto (Urine sed) [#/Area] 0-5 Normal 0-5 [facility] Comment on above: Performed By: #### 4 [id number] #### [facility] [address] [place] [address] Type of Urine collection method Clean Catch Normal [facility] Comment on above: Performed By: #### 4 [id number] #### [facility] [address] [place] [address] Office Visiton 02-15-2024 Follow-up visit [id number] Marly Cardoso 1970 F Date Provider Department Center 02/15/2024 48438-EOMFUMEDISON YING MICHAEL [facility] Family History Problem Relation Age of Onset Heart attack Father Family Status - Relation Status Age at Father Level of Service:01067 GA OFFICE/OUTPATIENT NEW MODERATE MDM 45 MINUTES Normal [facility] ANES POSTPROC EVALon 023 ANES POSTPROC EVAL HNO ID: [id number] Author: Carlota Jeffrey MD Service: ? Author Type: Anesthesiologist Type: Anesthesia Postprocedure Evaluation Filed: 08/25/2023 5:35 PM Note Text: POST ANESTHESIA EVALUATION NOTE : 1970 Procedure Summary Date: 08/25/23 Room / Location: Gastroenterology Anesthesia Start: 1444 Anesthesia Stop: 1552 Procedure: EGD - THERAPEUTIC, EUS, OR TUBE INTERVENTIONS Diagnosis: Gastroparesis (OTHER) Scheduled Providers: Marques Bradley MD; Carlota Jeffrey MD; Daina Mcmillan APRN.PILLOW FILLER Responsible Provider: Carlota Jeffrey MD Anesthesia Type: [...] August 25, 2023 TIME: 5:35 PM CSN: [id number] Normal [facility] ANES PRE-OPon 08-25-2023 ANES PRE-OP HNO ID: [id number] Author: Carlota Jeffrey MD Service: ? Author [...] August 25, 2023 TIME: 11:46 AM CSN: [id number] Normal [facility] HISTORY PHYSICALon HISTORY PHYSICAL HNO ID: [id number] Author: Gavi Bourgeois MD Service: General Surgery [...] DATE: August 25, 2023 TIME: 6:57 AM [facility] NURSING PROGon 08-25-2023 NURSING PROG HNO ID: [id number] Author: Melody Walter RN Service: Nursing Author [...] None Electronically Signed By: Melody Walter RN [facility] NURSING PROG HNO ID: [id number] Author: Pamela Osuna RN Service: ? Author [...] Pamela Navarro RN In Department: GASTROENTEROLOGY Normal [facility] 07-22-2023 CNPN Telephone (GENBMI) ----- CONSTANTINO CARDOSO ([id number]) 1970 F Date Time Provider Department 07/22/23 [...] Encounter Status:Closed by EVELYN BLACK on 07/22/23 [facility] ANES POSTPROC EVALon 023 ANES POSTPROC EVAL HNO ID: [id number] Author: Sly Carter MD Service: ? Author [...] Scheduled Providers: Marques Bradley MD; Amanda Bernard APRN.PILLOW FILLER; Sly Carter MD Responsible Provider: Sly aCrter MD Anesthesia Type: general ASA Status: 2 [...] July 14, 2023 TIME: 12:26 PM CSN: [id number] Normal [facility] ANES PRE-OPon 07-14-2023 ANES PRE-OP HNO ID: [id number] Author: Sly Carter MD Service: ? Author Type: Anesthesiologist Type: Anesthesia Preprocedure Evaluation Filed: 07/14/2023 9:19 AM Note Text: ANESTHESIOLOGY DAY OF SURGERY NOTE : 1970 Procedure Information Date/Time: 07/14/23929 Scheduled providers: Marques Bradley MD; Amanda Bernard APRN.PILLOW FILLER; Sly Carter MD Procedure: EGD - THERAPEUTIC, [...] July 14, 2023 TIME: 9:11 AM CSN: [id number] Normal [facility] EGD - THERAPEUTIC, EUS, OR T UBE INTERVENTIONSon 07-14-2023 [facility] HISTORY PHYSICALon 3 HISTORY PHYSICAL HNO ID: [id number] Author: Raúl Quintero MD Service: General Surgery [...] medications for this visit. REVIEW OF SYSTEMS: NEGATIVE CHECKER: Negative for CVA, Negative for TIA Respiratory: [...] July 14, 2023 TIME: 9:40 AM Normal [facility] NURSING PROGon 07-14-2023 NURSING PROG HNO ID: [id number] Author: Mónica Spaulding RN Service: Nursing Author Type: Registered Nurse Type: Nursing Progress Note Filed: 07/14/2023 11:21 AM Note Text: 1121: Dr. Mehrdad Carter paged : Patient Constantino Cardoso in post bed 10: Complaining of 10/10 abdominal pain (gas), mild nausea. Any further orders? Thanks! Mari Spaulding RN BSN [facility] NURSING PRO HNO ID: [id number] Author: Mónica Spaulding RN Service: Nursing Author [...] Electronically Signed By: Mónica Spaulding RN BSN [facility] NURSING PRO HNO ID: [id number] Author: Candace Jaramillo RN Service: ? Author [...] Candace Jaramillo RN In Department: GASTROENTEROLOGY Normal [facility] SURGICAL PATHOLOGYon 023 ADDENDUM 1: [facility] Comment on above: Order Comment: Speci men Type: TISSUE SPECIMENOrdering Facility: [facility] Address: [address] [place] [address] Result Comment: Give n the background of chronic gastritis a Helicobacter pylori immunostain was performed on block A and is negative for Helicobacter pylori organisms. AEB 07/20/2023 Laboratory Developed Test (LDT) Disclaimer: Performance characteristics of immunohistochemical, immunofluorescent and chromogenic in-situ hybridization tests have been determined by the performing laboratory within [facility]???s [facility] Medicine [place] ([facility], [facility], [facility], [facility], [facility], [facility], or [facility]) in a manner consistent with CLIA [...] at 9:30 AM Performed By: #### S ####[facility] LABIA [id number] [place] CASE REPORT Normal [facility] Comment on above: Order Comment: Speci men Type: TISSUE SPECIMENOrdering Facility: [facility] Address: [address] [place] [address] Result Comment: Surg [facility] Pathology Report Case: [id number] Authorizing Provider: Marques Bradley MD Collected: 07/14/2023 10:42 AM Ordering Location: Gastroenterology Received: 07/14/2023 07:34 PM Pathologist: Pepper Zacarias MD Specimen: STOMACH BIOPSY, R/O H.Pylori Performed By: #### S ####[facility] LABIA [id number] [address] OF [place] DIAGNOSIS COMMENT Immunohistochemical stain for Helicobacter pylori is pending and will be reported as an addendum. Normal [facility] Comment on above: Order Comment: Speci men Type: TISSUE SPECIMENOrdering Facility: [facility] Address: [address] [place] [address] Performed By: #### S ####[facility] LABCLIA [id number] [address] [place] FINAL DIAGNOSIS Normal [facility] Comment on above: Order Comment: Speci men Type: TISSUE SPECIMENOrdering Facility: [facility] Address: [address] [place] [address] Result Comment: [place]. Maria C scott, biopsy: - Chronic inactive gastritis. See comment. AEB/dkm 07/18/2023 Performed By: #### S ####[facility] LABCLIA [id number] [address] STATES OF [facility] FINAL PERFORMING LAB Normal [facility] Comment on above: Order Comment: Speci men Type: TISSUE SPECIMENOrdering Facility: [facility] Address: [address] [place] [address] Result Comment: Diag nostic interpretation performed at [facility], [address] [place] [address] CLIA# [id number] Center Machine Set Up Operator: Maurisio Ritchie M.D. Performed By: #### S ####[facility] LABIA [id number] [address] [place] GROSS DESCRIPTION Normal [facility] Comment on above: Order Comment: Speci men Type: TISSUE SPECIMENOrdering Facility: [facility] Address: [address] [place] [address] Result Comment: A. S TOMAPRIL BIOPSY Received in formalin are two pieces of hager, soft tissue aggregating to 0.5 x 0.2 x 0.2 cm. Totally submitted in one cassette. Two Gross examination performed at [facility], [address] [place] [address] July 14, 2023 11:10 PM Performed By: #### S ####[facility] LABCLIA [id number] [address] [place] CNPNon 05-27-2023 CNPN Telephone (GENBMI) ----- CONSTANTINO CARDOSO ([id number]) 1970 F Date Time Provider Department 05/27/23 EVELYN BLACK GENI During your visit today, [...] EVELYN BLACK on 05/27/23 Normal [facility] NM GASTRIC EMPTYING SOLIDon 05-26-2023 NM GASTRIC EMPTYING SOLID * * *Final Report* * * DATE OF EXAM: May 26 2023 11:11AM [facility] 0017 - NM GASTRIC EMPTYING SOLID [...] RATE OF GASTRIC EMPTYING OF SOLID MEAL. Orthopaedic Technologist: PSCB Transcribe Date/Time: May 26 2023 11:18A Dictated by : SILVANO WELSH MD This examination was interpreted and the report reviewed and electronically signed by: SILVANO WELSH MD on May 26 2023 11:18AM EST [id number] Normal [facility] CNNURSEon 05-25-2023 CNNURSE Nurse Visit (GASTMN) ----- CONSTANTINO CARDOSO ([id number]) 1970 F Date Time Provider Department 05/25/23 8:30 AM NURSE GI LAB 2 GASTMN During your visit today, we recorded the following information about you: Pedro Gonzalez LPN 05/25/2023 4:15 PM Signed Name: Constantino Cardoso CCF#: [id number] Date: 05/25/2023 ESOPHAGEAL MANOMETRY TEST Indication: Nausea [...] .Pedro Gonzalez LPN Referring Provider: MARQUES BRADLEY [[id number]] Allergies As of Date: 05/25/2023 Noted Allergy Reaction FLEXERIL (CYCLOBENZAPRINE) 04/28/2018 7 - Swelling PENICILLIN 04/28/2018 7 - Swelling Date Reviewed: 05/06/2023 Reviewed by: Judy Michaels MA - Fully Assessed Reason for Visit: Procedure [88] Cmt: Manometry Esophageal Visit Diagnosis:Nausea [R11.0] Order(s):MANOMETRY ESOPHAGEAL [72224FWJ] Order #: [id number] Prescriptions as of 05/25/2023 - dicyclomine (BENTYL) [...] Encounter Status:Closed by PEDRO GONZALEZ on 05/25/23 [facility] CONSTANTINO CARDOSO ([id number]) 1970 F Date Time Provider Department 05/16/23 [...] Encounter Status:Closed by EVELYN BLACK on 05/16/23 [facility] CNOVon 05-06-2023 CNOV Office Visit (GENBMI ) ----- CONSTANTINO CARDOSO ([id number]) 1970 F Date Time Provider Department 05/06/23 [...] for internal providers or letter via the [employer] for external providers. Chief Complaint: [...] Time: 8:15 AM Referring Provider: IMER CHERRY [[id number]] Allergies As of Date: 05/06/2023 Noted Allergy Reaction (more content not included)... Normal [facility] 05-02-2023 CNPN Telephone (GENBMI) ----- CONSTANTINO CARDOSO ([id number]) 1970 F Date Time Provider Department 05/02/23 EVELYN BLACK GENBMI During your visit today, we recorded the following information about you: Evelyn Black, RN 05/04/2023 1:55 PM Addendum BMI SPECIALTY CARE COORDINATION TELEPHONE ENCOUNTER Chief complaint AND duration dysphagia. Type of procedure: hernia repair hiatal with Dr. MORTENSEN in [place] February of 2019. Sending OP notes Nursing assessment (subjective/objective) . pain in chest area and getting worse, hard to breathe c/o nausea and oral intolerance, using miralax for BM Went to [place] ED March 2023 who told her she needed a stent in her heart..but her c/o were difficulty swallowing and sent pt home and referred her to [facility] and was admitted for almost a [...] HHR a year later @ OSH in [place] Recommendation: appt after records obtained, encouraged small [...] by EVELYN BLACK on 05/02/23 [facility] Magda 04-26-2023 CNPN Telephone (GENBMI) ----- CONSTANTINO CARDOSO ([id number]) 1970 F Date Time Provider Department 04/26/23 [...] Encounter Status:Closed by EVELYN BLACK on 04/26/23 [facility] 04-18-2023 CNPN Telephone (GENBMI) ----- CONSTANTINO CARDOSO ([id number]) 1970 F Date Time Provider Department 04/18/23 [...] Ma - Fully Assessed Reason for Visit: Band Splitter - Other [3602] Prescriptions as of 04/18/2023 [...] Encounter Status:Closed by EVELYN BLACK on 04/18/23 [facility] Magda 04-07-2023 CNPN Telephone (GASTSP) ----- CONSTANTINO CARDOSO ([id number]) 1970 F Date Time Provider Department 04/07/23 [...] Status:Closed by YANCY LOPEZ on 04/07/23 Normal [facility] Alanine aminotransferase [En zymatic activity/volume] in [...] on 03-23-2023 Bilirubin Ql (U) Negative Negative [facility] Bilirubin.direct [Mass/volum e] in Serum or PlasmaOrdered By: Pete Thakkar on 03-23-2023 Bilirubin.direct [Mass/Vol] 0.10 mg/dL 0.03-0.[address] [facility] Bilirubin.total [Mass/volume ] in Serum or PlasmaOrdered By: Pete Thakkar on 03-23-2023 Bilirubin [Mass/Vol] 0.3 mg/dL 0.3-1.0 [facility] Calcium [Mass/volume] in Ser um or PlasmaOrdered By: Pete Thakkar on 03-23-2023 Calcium [Mass/Vol] 9.0 mg/dL 8.6-10.3 [facility] Carbon dioxide, total [Moles /volume] in Serum or PlasmaOrdered By: Pete Thakkar on 03-23-2023 CO2 [Moles/Vol] 24.5 mmol/L 21.0-31.0 [facility] Chloride [Moles/volume] in S cristine or PlasmaOrdered By: Pete Thakkar on 03-23-2023 Chloride [Moles/Vol] 111 mmol/L 98-107 [facility] Color Auto (U)Ordered By: Shoaib Thakkar on 03-23-2023 Color (U) Yellow Yellow [facility] Creatinine [Mass/volume] in Serum or PlasmaOrdered By: Pete Thakkar on 03-23-2023 Creatinine [Mass/Vol] 0.72 mg/dL 0.60-1.20 [facility] Eosinophils Auto (Bld) [#/Vo l]Ordered [...] on 03-23-2023 Glucose [Mass/Vol] 79 mg/dL 70-100 [facility] Comment on above: ADA recommended refe rence [...] 03-23-2023 MCHC (RBC) [Mass/Vol] 33.7 g/dL 32.0-35.0 [facility] MCV Auto (RBC) [Entitic vol] [...] on 03-23-2023 Potassium [Moles/Vol] 3.6 mmol/L 3.5-5.1 [facility] Protein Auto test strip (U) [Mass/Vol]Ordered By: Pete Thakkar on 03-23-2023 Protein (U) [Mass/Vol] Negative Negative [facility] Protein [Mass/volume] in Ser um or PlasmaOrdered By: Pete Thakkar on 03-23-2023 Protein [Mass/Vol] 7.0 g/dL 6.4-8.9 [facility] RBC Auto (Bld) [#/Vol]Ordere d By: Pete Thakkar on 03-23-2023 RBC (Bld) [#/Vol] 4.12 10*6/uL 3.60-5.00 [facility] Serum or plasma albumin/glob ulin mass ratioOrdered By: Pete Thakkar on 03-23-2023 Albumin/Globulin [Mass ratio] 1.4 {ratio} [facility] Serum or plasma anion gap de terminationOrdered By: Pete Thakkar on 03-23-2023 Anion gap [Moles/Vol] 10.1 mmol/L 6.0-15.0 [facility] Serum or plasma non-glucuron idated bilirubin measurement (mass/volume)Ordered By: Pete Thakkar on 03-23-2023 Bilirubin.indirect [Mass/Vol] 0.2 mg/dL [facility] Sodium [Moles/volume] in Ser um or PlasmaOrdered By: Pete Thakkar on 03-23-2023 Sodium [Moles/Vol] 142 mmol/L 136-145 [facility] Specific gravity Auto test s trip (U) [...] Bacteria Auto Ql (U) 1+ None Seen [facility] Urine clarity by refractomet ry automatedOrdered [...] 03-23-2023 WBC (Bld) [#/Vol] 6.3 10*3/uL 3.8-11.6 [facility] pH Auto test strip (U)Ordere d By: [...] on 02-15-2023 Bilirubin [Mass/Vol] 0.4 mg/dL 0.3-1.0 [facility] Calcium [Mass/volume] in Ser um or PlasmaOrdered By: Conner Griffith on 02-15-2023 Calcium [Mass/Vol] 9.3 mg/dL 8.6-10.3 [facility] Carbon dioxide, total [Moles /volume] in Serum or PlasmaOrdered By: Conner Griffith on 02-15-2023 CO2 [Moles/Vol] 25.3 mmol/L 21.0-31.0 [facility] Chloride [Moles/volume] in S cristine or PlasmaOrdered By: Conner Griffith on 02-15-2023 Chloride [Moles/Vol] 106 mmol/L 98-107 [facility] Creatinine [Mass/volume] in Serum or PlasmaOrdered By: Conner Griffith on 02-15-2023 Creatinine [Mass/Vol] 0.77 mg/dL 0.60-1.20 [facility] Eosinophils Auto (Bld) [#/Vo l]Ordered [...] on 02-15-2023 Glucose [Mass/Vol] 94 mg/dL 70-100 [facility] Comment on above: ADA recommended refe rence [...] PT Coag (PPP) [Time] 11.7 s 9.0-12.9 [facility] Leukocytes [#/volume] correc jun for nucleated [...] 02-15-2023 MCHC (RBC) [Mass/Vol] 33.8 g/dL 32.0-35.0 [facility] MCV Auto (RBC) [Entitic vol] [...] on 02-15-2023 Potassium [Moles/Vol] 3.9 mmol/L 3.5-5.1 [facility] Protein [Mass/volume] in Ser um or PlasmaOrdered By: Conner Griffith on 02-15-2023 Protein [Mass/Vol] 7.3 g/dL 6.4-8.9 [facility] RBC Auto (Bld) [#/Vol]Ordere d By: Conner Griffith on 02-15-2023 RBC (Bld) [#/Vol] 4.43 10*6/uL 3.60-5.00 [facility] Serum or plasma albumin/glob ulin mass ratioOrdered By: Conner Griffith on 02-15-2023 Albumin/Globulin [Mass ratio] 1.4 {ratio} [facility] Serum or plasma anion gap de terminationOrdered By: Conner Griffith on 02-15-2023 Anion gap [Moles/Vol] 12.6 mmol/L 6.0-15.0 [facility] Serum or plasma non-glucuron idated bilirubin measurement (mass/volume)Ordered By: Conner Griffith on 02-15-2023 Bilirubin.indirect [Mass/Vol] 0.4 mg/dL [facility] Sodium [Moles/volume] in Ser um or PlasmaOrdered By: Conner Griffith on 02-15-2023 Sodium [Moles/Vol] 140 mmol/L 136-145 [facility] Urea nitrogen [Mass/volume] in Serum or PlasmaOrdered By: Conner Griffith on 02-15-2023 Urea nitrogen [Mass/Vol] 14 mg/dL 7-[address] [facility] WBC Auto (Bld) [#/Vol]Ordere d By: Conner Griffith on 02-15-2023 WBC (Bld) [#/Vol] 5.2 10*3/uL 3.8-11.6 [facility] MG MAMM SCREEN 3D MACARIO CADon 11-30-2022 MG MAMM SCREEN 3D MACARIO CAD Normal [facility] ER URINE PROFILEon Bilirubin Ql (U) Negative Normal NEGATIVE [facility] Comment on above: Performed By: #### E RUR ####[facility] [id number] [place] [address]Dr. Tadeo Smyth Clarity (U) CLEAR Normal CLEAR [facility] Comment on above: Performed By: #### E RUR ####[facility] [id number] [place] [address]Dr. Tadeo Smyth Color (U) YELLOW Normal YELLOW [facility] Comment on above: Performed By: #### E RUR ####[facility] [id number] [place] [address]Dr. Tadeo Smyth ERUAHD A micrscopic examina tion will be performed if indicated. Normal [facility] Comment on above: Performed By: #### E RUR ####[facility] Trkqaykrqe[address] [place] [address]Dr. Tadeo Smyth Glucose Ql (U) Negative Normal NEGATIVE [facility] Comment on above: Performed By: #### E RUR ####[facility] Jjkrwytmav5200 [place] [address]Dr. Tadeo Smyth Hemoglobin Ql (U) TRACE-INTACT Abnormal NEGATIVE [facility] Comment on above: Performed By: #### E RUR ####[facility] Yxxmstivkk78[address] [place], [place] [address]Dr. Tadeo Smyth Ketones Ql (U) Negative Normal NEGATIVE [facility] Comment on above: Performed By: #### E RUR ####[facility] Zervywphrm[address] [place], [place] [address]Dr. Tadeo Smyth LEUKOCYTES Negative Normal NEGATIVE [facility] Comment on above: Performed By: #### E RUR ####[facility] Drptxthbvu[address] [place], [place] [address]Dr. Tadeo Haja Nitrite Ql (U) Negative Normal NEGATIVE [facility] Comment on above: Performed By: #### E RUR ####[facility] Gcdbflbasc23[address] [place], [place] [address]Dr. Tadeo Smyth pH (U) 6.0 [pH] Normal 5-9 [facility] Comment on above: Performed By: #### E RUR ####[facility] Smkkkyvric[address] [place], [place] [address]Dr. Tadeo Smyth SPEC GRAVITY >=1.030 Abnormal 1.005-<=1.0 25 [facility] Comment on above: Performed By: #### E RUR ####[facility] Gaqkxkqncu13[address] [place], [place] [address]Dr. Tadeo Smyth UA PROTEIN Negative Normal NEGATIVE/ TRACE [facility] Comment on above: Performed By: #### E RUR ####[facility] Lfixmrgwnn5[address] [place], [place] [address]Dr. Tadeo Smyth UR MICRO IND NOT INDICATED Normal [facility] Comment on above: Performed By: #### E RUR ####[facility] Dbdpclqhcc35[address] [place], [place] [address]Dr. Tadeo Smyth Urobilinogen Qn (U) 0.2 {Benito'U}/dL Normal 0.2 - 1. 0 [facility] Comment on above: Performed By: #### E RUR ####[facility] Dsecttckgs95[address] [place] [address]Dr. Tadeo Smyth XR ABD FLAT UP_PA Kasey 11-28 XR ABD FLAT UP_PA CH Normal [facility] AMYLASEon 11-27-2022 Amylase [Catalytic activity/Vol] 63 U/L Normal 25-115 [facility] Comment on above: Performed By: #### L IPA, VIJI, CMP ####[facility] Nttaaearit[address] [place], [place] [address]Dr. Tadeo Haja CBC AUTO DIFFon 11-27-2022 BASO # 0.0 103/ul Normal 0.0-0.1 [facility] Comment on above: Performed By: #### C BC ####[facility] Ycczmbpfxk8[address] [place], [place] [address]Dr. Tadeo Smyth Basophils/100 WBC (Bld) 0.4 % Normal 0.2-2.0 [facility] Comment on above: Performed By: #### C BC ####[facility] Pnnhkqlxcl45[address] [place], [place] [address]Dr. Tadeo Smyth EO # 0.2 103/ul Normal 0.0-0.7 [facility] Comment on above: Performed By: #### C BC ####[facility] Themtuonhm6[address] [place], [place] [address]Dr. Tadeo Smyth Eosinophils/100 WBC (Bld) 2.8 % Normal 0.9-7.0 [facility] Comment on above: Performed By: #### C BC ####[facility] Sjykojbrep[address] [place], [place] [address]Dr. Tadeo Smyth Erythrocyte distribution width (RBC) [Ratio] 13.2 % Normal 11.0-15.0 [facility] Comment on above: Performed By: #### C BC ####[facility] Lwdmwqkgru5622[address] [place], [place] [address]Dr. Tadeo Smyth Hematocrit (Bld) [Volume fraction] 42.6 % Normal 36.0-48.0 [facility] Comment on above: Performed By: #### C BC ####[facility] Lvbbtcexhp5034 [place] [id number]. Tadeo Smyth Hemoglobin (Bld) [Mass/Vol] 13.6 g/dL Normal 12.0-16.0 [facility] Comment on above: Performed By: #### C BC ####[facility] Smsrdfnite0761 [place] [id number]. Tadeo Smyth IG # 0.02 10e3/ul Normal 0.00-0.03 [facility] Comment on above: Performed By: #### C BC ####[facility] Naxpjgxbqg5522 [place] [id number]. Tadeo Smyth IG % 0.3 % Normal 0.0-0.5 [facility] Comment on above: Performed By: #### C BC ####[facility] Rrjvederwz6062 [place] [address]Dr. Tadeo Smyth LYMPH # 2.2 103/ul Normal 1.2-3.8 [facility] Comment on above: Performed By: #### C BC ####[facility] Yuvqwtxsff8699 [place] [address]Dr. Tadeo Smyth Lymphocytes/100 WBC (Bld) 32.1 % Normal 20.5-60.0 [facility] Comment on above: Performed By: #### C BC ####[facility] Keitabnfvh5352 [place] [address]Dr. Tadeo Smyth MANUAL DIFF REQ NO Normal [facility] Comment on above: Performed By: #### C BC ####[facility] Omdekppepn6734 [place] [id number]. Tadeo Smyth MCH (RBC) [Entitic mass] 29.6 pg Normal 26.7-34.0 [facility] Comment on above: Performed By: #### C BC ####[facility] Wpssnvbrvv8638 [place] [phone]. Tadeo Smyth MCHC (RBC) [Mass/Vol] 31.9 g/dL Normal 29.9-35.2 [facility] Comment on above: Performed By: #### C BC ####[facility] Qmozjjresj[address] [place], [place] [id number]. Tadeo Haja MCV (RBC) [Entitic vol] 92.6 fL Normal 81.0-99.0 [facility] Comment on above: Performed By: #### C BC ####[facility] Kjphvigbsh2688 [place] [phone]. Tadeo Smyth MONO # 0.2 103/ul Critically low 0.3-0.8 [facility] Comment on above: Performed By: #### C BC ####[facility] Ioimuwwiyj1432 [place] [address]Dr. Margotnicole Smyth Monocytes/100 WBC (Bld) 3.2 % Normal 1.7-12.0 [facility] Comment on above: Performed By: #### C BC ####[facility] Ncbnjtjbis0923 [place] [address]Dr. Tadeo Smyth NEUT # 4.2 103/ul Normal 1.4-6.5 [facility] Comment on above: Performed By: #### C BC ####[facility] Pnmreyyhlj20[address] [place], [place] [address]Dr. Tadeo Haja Neutrophils/100 WBC (Bld) 61.2 % Normal 43.0-75.0 [facility] Comment on above: Performed By: #### C BC ####[facility] Wtqdyqvdes9[address] [place], [place] [address]Dr. Tadeo Haja Platelet mean volume (Bld) [Entitic vol] 9.0 fL Critically low 9.5-13.5 [facility] Comment on above: Performed By: #### C BC ####[facility] Cltmwtmuls9218[address] [place], [place] [address]Dr. Tadeo Haja PLT 392 103/ul Normal 150-450 [facility] Comment on above: Performed By: #### C BC ####[facility] Mccekwfrlg[address] [place], [place] [id number]. Tadeo Haja RBC 4.60 106/ul Normal 4.20-5.40 [facility] Comment on above: Performed By: #### C BC ####[facility] Gdlwgtlboj[address] [place], [place] [id number]. Tadeo Smyth WBC 6.9 103/ul Normal 4.0-11.0 [facility] Comment on above: Performed By: #### C BC ####[facility] Ihmffzbyrz8249 [place] [address]Dr. Tadeo Smyth LIPASEon 11-27-2022 Lipase [Catalytic activity/Vol] 100.0 U/L Normal 73.0-393.0 [facility] Comment on above: Performed By: #### L VIJI HALL, CMP ####[facility] Ktxqcoayhh7527 [place] [address]Dr. Tadeo Smyth PROF 14(COMP METB)on 023 Albumin [Mass/Vol] 3.5 g/dL Normal 3.4-5.0 [facility] Comment on above: Performed By: #### L ISABEL VIJI, CMP ####[facility] Miufstydcd2147 [place] [address]Dr. Tadeo Smyth Albumin/Globulin [Mass ratio] 0.9 {ratio} Normal [facility] Comment on above: Performed By: #### L VIJI HALL, CMP ####[facility] Ztbucrszim0360 [place] [address]Dr. Tadeo Smyth ALP [Catalytic activity/Vol] 166 U/L Critically high 46-116 [facility] Comment on above: Performed By: #### L ISABEL VIJI, CMP ####[facility] Peqprqfcyn6317 [place] [address]Dr. Tadeo Smyth ALT [Catalytic activity/Vol] 25 U/L Normal 14-59 [facility] Comment on above: Performed By: #### L ISABEL VIJI, CMP ####[facility] Etrtthwvkt0105 [place] [address]Dr. Tadeo Smyth Anion gap [Moles/Vol] 12.4 mmol/L Normal [facility] Comment on above: Performed By: #### L IPA VIJI, CMP ####[facility] Dudqdcbshy6772 [place] [address]Dr. Tadeo Smyth AST [Catalytic activity/Vol] 18 U/L Normal 15-37 [facility] Comment on above: Performed By: #### L IPAVIJI, CMP ####[facility] Ivfqqewagw0004 [place] [address]Dr. Tadeo Smyth Bilirubin [Mass/Vol] 0.3 mg/dL Normal 0.2-1.0 [facility] Comment on above: Performed By: #### L IPA VIJI, CMP ####[facility] Slubihfnet96[address] [place], [place] [address]Dr. Tadeo Smyth Calcium [Mass/Vol] 9.1 mg/dL Normal 8.5-10.1 [facility] Comment on above: Performed By: #### L IPA VIJI, CMP ####[facility] Manefmydtg040[address] [place], [place] [address]Dr. Tadeo Smyth Chloride [Moles/Vol] 104 mmol/L Normal 98-107 [facility] Comment on above: Performed By: #### L ISABEL VIJI, CMP ####[facility] Qetwfjuprg3876[address] [place], [place] [address]Dr. Tadeo Smyth CO2 [Moles/Vol] 25.0 mmol/L Normal 21.0-32.0 [facility] Comment on above: Performed By: #### L ISABEL VIJI, CMP ####[facility] Ngolgnpkqp5445[address] [place], [place] [address]Dr. Tadeo Smyth Creatinine [Mass/Vol] 0.87 mg/dL Normal 0.55-1.02 [facility] Comment on above: Performed By: #### L ISABEL VIJI, CMP ####[facility] Wokrnotcpb[address] [place], [place] [address]Dr. Tadeo Smyth EGFR-AF KENYAN >60 Normal >=60 [facility] Comment on above: Performed By: #### L IPA VIJI, CMP ####[facility] Kpyiofltjt989[address] [place], [place] [address]Dr. Tadeo Smyth EGFR-NON AF KENYAN >60 Normal >=60 [facility] Comment on above: Performed By: #### L IPA VIJI, CMP ####[facility] Jinekoimhf[address] [place], [place] [address]Dr. Tadeo Haja Globulin (S) [Mass/Vol] 3.9 g/dL Normal [facility] Comment on above: Performed By: #### L VIJI HALL, CMP ####[facility] Ymotzsqgjg7407 [place] [address]Dr. Tadeo Smyth Glucose [Mass/Vol] 169 mg/dL Critically high 74-106 [facility] Comment on above: Performed By: #### L VIJI HALL, CMP ####[facility] Izktnnlaef0396 [place] [address]Dr. Tadeo Smyth Potassium [Moles/Vol] 3.4 mmol/L Critically low 3.5-5.1 [facility] Comment on above: Performed By: #### L VIJI HALL, CMP ####[facility] Delixvmchh[address] [place], [place] [address]Dr. Tadeo Smyth Protein [Mass/Vol] 7.4 g/dL Normal 6.4-8.2 [facility] Comment on above: Performed By: #### L VIJI HALL, CMP ####[facility] Ovufnevcmo94[address] [place], [place] [address]Dr. Tadeo Smyth Sodium [Moles/Vol] 138 mmol/L Normal 136-145 [facility] Comment on above: Performed By: #### L VIJI HALL, CMP ####[facility] Efntgnhuyo8950 [place] [address]Dr. Tadeo Smyth Urea nitrogen [Mass/Vol] 23.0 mg/dL Critically high 7.0-18.0 [facility] Comment on above: Performed By: #### L VIJI HALL, CMP ####[facility] Osrdzhybga9944 [place] [address]Dr. Margotnicole Smyth Urea nitrogen/Creatinine [Mass ratio] 26.4 mg/mg Normal [facility] Comment on above: Performed By: #### L VIJI HALL, CMP ####[facility] Wbwwamqanc3476 [place] [address]Dr. Margotnicole Smyth AMYLASEon 11-02-2022 Amylase [Catalytic activity/Vol] 40 U/L Normal 25-115 [facility] Comment on above: Performed By: #### L ISABEL MG, CMP, VIJI ####[facility] Mjnagdumyd2836 [place] [phone]. Tadeo Smyth CBC AUTO DIFFon 11-02-2022 BASO # 0.0 103/ul Normal 0.0-0.1 [facility] Comment on above: Performed By: #### C BC ####[facility] Rdxornalmb1923 [place] [id number]. Tadeo Haja Basophils/100 WBC (Bld) 0.5 % Normal 0.2-2.0 [facility] Comment on above: Performed By: #### C BC ####[facility] Vilwlzujmp2784 [place] [address]Dr. Tadeo Smyth EO # 0.1 103/ul Normal 0.0-0.7 [facility] Comment on above: Performed By: #### C BC ####[facility] Lepeekaqwz0196 [place] [address]Dr. Margotnicole Smyth Eosinophils/100 WBC (Bld) 2.8 % Normal 0.9-7.0 [facility] Comment on above: Performed By: #### C BC ####[facility] Hqllokllfh2764[address] [place], [place] [address]Dr. Tadeo Smyth Erythrocyte distribution width (RBC) [Ratio] 13.3 % Normal 11.0-15.0 [facility] Comment on above: Performed By: #### C BC ####[facility] Nxbasnarzl2808 [place] [address]Dr. Tadeo Smyth Hematocrit (Bld) [Volume fraction] 35.6 % Critically low 36.0-48.0 [facility] Comment on above: Performed By: #### C BC ####[facility] Mqfugaexlp0983 [place] [address]Dr. Tadeo Smyth Hemoglobin (Bld) [Mass/Vol] 11.3 g/dL Critically low 12.0-16.0 [facility] Comment on above: Performed By: #### C BC ####[facility] Dokcsavnth77[address] [place], [place] [address]Dr. Tadeo Smyth IG # 0.01 10e3/ul Normal 0.00-0.03 [facility] Comment on above: Performed By: #### C BC ####[facility] Iizsmqvito4620 [place] [address]DrNeo Margotnicole Smyth IG % 0.2 % Normal 0.0-0.5 [facility] Comment on above: Performed By: #### C BC ####[facility] Kcxzzowrec5653 [place] [address]DrNeo Smyth LYMPH # 1.5 103/ul Normal 1.2-3.8 [facility] Comment on above: Performed By: #### C BC ####[facility] Crghlgrjeh9223 [place] [address]DrNeo Smyth Lymphocytes/100 WBC (Bld) 34.9 % Normal 20.5-60.0 [facility] Comment on above: Performed By: #### C BC ####[facility] Nmmvrdvtpe[address] [place], [place] [address]DrNeo Smyth MANUAL DIFF REQ NO Normal [facility] Comment on above: Performed By: #### C BC ####[facility] Tsuqznmjcc5682 [place] [phone]. Tadeo Haja MCH (RBC) [Entitic mass] 28.8 pg Normal 26.7-34.0 [facility] Comment on above: Performed By: #### C BC ####[facility] Jhyqoqgcpk[address] [place], [place] [id number] Tadeo Haja MCHC (RBC) [Mass/Vol] 31.7 g/dL Normal 29.9-35.2 [facility] Comment on above: Performed By: #### C BC ####[facility] Fqqoriards5299 [place] [phone] Margotnicole Smyth MCV (RBC) [Entitic vol] 90.8 fL Normal 81.0-99.0 [facility] Comment on above: Performed By: #### C BC ####[facility] Dcxpkwfeev1567 [place] [phone] Smyth MONO # 0.3 103/ul Normal 0.3-0.8 [facility] Comment on above: Performed By: #### C BC ####[facility] Cijncjkpzw6688 [place] [phone]. Tadeo Smyth Monocytes/100 WBC (Bld) 6.9 % Normal 1.7-12.0 [facility] Comment on above: Performed By: #### C BC ####[facility] Leftpyrccm3024 [place] [phone]. Tadeo Smyth NEUT # 2.4 103/ul Normal 1.4-6.5 [facility] Comment on above: Performed By: #### C BC ####[facility] Pjtsdbmuqx4022 [place] [phone]. Tadeo Smyth Neutrophils/100 WBC (Bld) 54.7 % Normal 43.0-75.0 [facility] Comment on above: Performed By: #### C BC ####[facility] Ktcifjuxqq0861 [place] [phone]. Tadeo Smyth Platelet mean volume (Bld) [Entitic vol] 8.9 fL Critically low 9.5-13.5 [facility] Comment on above: Performed By: #### C BC ####[facility] Lqaukylcmc4754 [place] [phone]. Tadeo Smyth PLT 316 103/ul Normal 150-450 [facility] Comment on above: Performed By: #### C BC ####[facility] Njrkxnlpub9598 [place] [phone]. Tadeo Smyth RBC 3.92 106/ul Critically low 4.20-5.40 [facility] Comment on above: Performed By: #### C BC ####[facility] Ibhfluxevp8905 [place] [phone]. Tadeo Smyth WBC 4.4 103/ul Normal 4.0-11.0 [facility] Comment on above: Performed By: #### C BC ####[facility] Poadnmmpxr7694 [place] [phone]. Tadeo Smyth H PYLORI ANTIBODY IGGon 10-07 H. PYLORI IGG ABS 0.12 Index Value Normal 0.00-0.79 T he [facility] Comment on above: Result Comment: Nega tive <0.80 Equivocal 0.80 - 0.89 Positive >0.89 Performed By: #### H PYLLC ####[facility] Kudwbmdvly0510 [place] [address]Dr. Tadeo Smyth LIPASEon 11-02-2022 Lipase [Catalytic activity/Vol] 58.0 U/L Critically low 73.0-393.0 [facility] Comment on above: Performed By: #### L IPA, MG, CMP, VIJI ####[facility] Ensyrtuvdc2018 [place] [address]Dr. Tadeo Smyth MAGNESIUMon 11-02-2022 Magnesium [Mass/Vol] 1.8 mg/dL Normal 1.8-2.4 [facility] Comment on above: Performed By: #### L IPA, MG, CMP, VIJI ####[facility] Etcntdwyka[address] [place], [place] [address]Dr. Tadeo Smyth PROF 14(COMP METB)on 023 Albumin [Mass/Vol] 3.2 g/dL Critically low 3.4-5.0 [facility] Comment on above: Performed By: #### L IPA, MG, CMP, VIJI ####[facility] Cpylrobjww574[address] [place], [place] [address]Dr. Tadeo Smyth Albumin/Globulin [Mass ratio] 1.0 {ratio} Normal [facility] Comment on above: Performed By: #### L IPA, MG, CMP, VIJI ####[facility] Cewyymdfis5073 [place] [address]Dr. Tadeo Smyth ALP [Catalytic activity/Vol] 138 U/L Critically high 46-116 [facility] Comment on above: Performed By: #### L IPA, MG, CMP, VIJI ####[facility] Pliowsfbqg2249 [place] [address]Dr. Tadeo Smyth ALT [Catalytic activity/Vol] 22 U/L Normal 14-59 [facility] Comment on above: Performed By: #### L IPA, MG, CMP, VIJI ####[facility] Eswxhhrzrq1375 [place] [address]Dr. Tadeo Smyth Anion gap [Moles/Vol] 10.0 mmol/L Normal [facility] Comment on above: Performed By: #### L IPA, MG, CMP, VIJI ####[facility] Jchcculgfq1391 [place] [address]Dr. Tadeo Smyth AST [Catalytic activity/Vol] 18 U/L Normal 15-37 [facility] Comment on above: Performed By: #### L IPA, MG, CMP, VIJI ####[facility] Xfvvjgisbe7[address] [place], [place] [address]Dr. Tadeo Smyth Bilirubin [Mass/Vol] 0.5 mg/dL Normal 0.2-1.0 [facility] Comment on above: Performed By: #### L IPA, MG, CMP, VIJI ####[facility] Qrcglczfej74[address] [place], [place] [address]Dr. Tadeo Smyth Calcium [Mass/Vol] 8.9 mg/dL Normal 8.5-10.1 [facility] Comment on above: Performed By: #### L IPA, MG, CMP, VIJI ####[facility] Wcvsbxrxxw10[address] [place], [place] [address]Dr. Tadeo Smyth Chloride [Moles/Vol] 107 mmol/L Normal 98-107 [facility] Comment on above: Performed By: #### L IPA, MG, CMP, VIJI ####[facility] Qbzxusugog6804[address] [place], [place] [address]Dr. Tadeo Smyth CO2 [Moles/Vol] 28.8 mmol/L Normal 21.0-32.0 [facility] Comment on above: Performed By: #### L IPA, MG, CMP, VIJI ####[facility] Oqtnpovkrj3624[address] [place], [place] [address]Dr. Tadeo Smyth Creatinine [Mass/Vol] 0.74 mg/dL Normal 0.55-1.02 [facility] Comment on above: Performed By: #### L IPA, MG, CMP, VIJI ####[facility] Wdtzadmhaj9330 [place] [address]Dr. Tadeo Smyth EGFR-AF KENYAN >60 Normal >=60 [facility] Comment on above: Performed By: #### L IPA, MG, CMP, VIJI ####[facility] Tvwtlpyclq2007 [place] [address]Dr. Tadeo Smyth EGFR-NON AF KENYAN >60 Normal >=60 [facility] Comment on above: Performed By: #### L IPA, MG, CMP, VIJI ####[facility] Qyuezndyok3190 [place] [address]Dr. Tadeo Smyth Globulin (S) [Mass/Vol] 3.3 g/dL Normal [facility] Comment on above: Performed By: #### L IPA, MG, CMP, VIJI ####[facility] Jqgbwnjlfr3899 [place] [address]Dr. Tadeo Smyth Glucose [Mass/Vol] 96 mg/dL Normal 74-106 [facility] Comment on above: Performed By: #### L IPA, MG, CMP, VIJI ####[facility] Gqpvkboybr[address] [place], [place] [address]Dr. Tadeo Smyth Potassium [Moles/Vol] 3.8 mmol/L Normal 3.5-5.1 [facility] Comment on above: Performed By: #### L IPA, MG, CMP, VIJI ####[facility] Gquovjmohx3695 [place] [address]Dr. Tadeo Smyth Protein [Mass/Vol] 6.5 g/dL Normal 6.4-8.2 [facility] Comment on above: Performed By: #### L IPA, MG, CMP, VIJI ####[facility] Sycmncxobh0735 [place] [address]Dr. Tadeo Smyth Sodium [Moles/Vol] 142 mmol/L Normal 136-145 [facility] Comment on above: Performed By: #### L IPA, MG, CMP, VIJI ####[facility] Xkocjiiibw5720 [place] [address]Dr. Tadeo Smyth Urea nitrogen [Mass/Vol] 8.0 mg/dL Normal 7.0-18.0 [facility] Comment on above: Performed By: #### L IPA, MG, CMP, VIJI ####[facility] Obsmvefnee2407 [place] [address]Dr. Tadeo Smyth Urea nitrogen/Creatinine [Mass ratio] 10.8 mg/mg Normal [facility] Comment on above: Performed By: #### L IPA, MG, CMP, VIJI ####[facility] Loykngbojl4561 [place] [address]Dr. Tadeo Smyth AMMONIAon 11-01-2022 Ammonia (P) [Moles/Vol] 18 umol/L Normal 11-32 [facility] Comment on above: Performed By: #### A MM ####[facility] Ohetezlenf[address] [place], [place] [address]Dr. Tadeo Smyth AMYLASEon 11-01-2022 Amylase [Catalytic activity/Vol] 43 U/L Normal 25-115 [facility] Comment on above: Performed By: #### M G, VIJI, LIPA, CMP ####[facility] Aqnduecvth[address] [place], [place] [address]Dr. Tadeo Smyth CBC AUTO DIFFon 11-01-2022 BASO # 0.0 103/ul Normal 0.0-0.1 [facility] Comment on above: Performed By: #### C BC ####[facility] Lidhkraaxm[address] [place], [place] [address]Dr. Tadeo Smyth Basophils/100 WBC (Bld) 0.6 % Normal 0.2-2.0 [facility] Comment on above: Performed By: #### C BC ####[facility] Nuluxludxu[address] [place], [place] [address]Dr. Tadeo Smyth EO # 0.1 103/ul Normal 0.0-0.7 [facility] Comment on above: Performed By: #### C BC ####[facility] Gwsaqsiehy27[address] [place], [place] [address]Dr. Tadeo Smyth Eosinophils/100 WBC (Bld) 1.5 % Normal 0.9-7.0 [facility] Comment on above: Performed By: #### C BC ####[facility] Uiikvjpcyv9[address] [place], [place] [address]Dr. Tadeo Smyth Erythrocyte distribution width (RBC) [Ratio] 13.5 % Normal 11.0-15.0 [facility] Comment on above: Performed By: #### C BC ####[facility] Fxurishidv2985 [place] [address]DrNeo Smyth Hematocrit (Bld) [Volume fraction] 37.7 % Normal 36.0-48.0 [facility] Comment on above: Performed By: #### C BC ####[facility] Ifppqrsawl3977 [place] [address]DrNeo Smyth Hemoglobin (Bld) [Mass/Vol] 12.5 g/dL Normal 12.0-16.0 [facility] Comment on above: Performed By: #### C BC ####[facility] Xhpojcptbw9[address] [place], [place] [address]DrNeo Smyth IG # 0.02 10e3/ul Normal 0.00-0.03 [facility] Comment on above: Performed By: #### C BC ####[facility] Ayaeoycbnm97[address] [place], [place] [address]Dr. Tadeo Smyth IG % 0.4 % Normal 0.0-0.5 [facility] Comment on above: Performed By: #### C BC ####[facility] Ycnbegdgro97[address] [place], [place] [address]DrNeo Smyth LYMPH # 1.3 103/ul Normal 1.2-3.8 [facility] Comment on above: Performed By: #### C BC ####[facility] Swpmpaopje43[address] [place], [place] [address]DrNeo Smyth Lymphocytes/100 WBC (Bld) 23.9 % Normal 20.5-60.0 [facility] Comment on above: Performed By: #### C BC ####[facility] Eyntcepqqd[address] [place], [place] [address]DrNeo Smyth MANUAL DIFF REQ NO Normal [facility] Comment on above: Performed By: #### C BC ####[facility] Violkocydq[address] [place] [address]DrNeo Smyth MCH (RBC) [Entitic mass] 29.8 pg Normal 26.7-34.0 [facility] Comment on above: Performed By: #### C BC ####[facility] Zubaclovns[address] [place] [address]Dr. Tadeo Smyth MCHC (RBC) [Mass/Vol] 33.2 g/dL Normal 29.9-35.2 [facility] Comment on above: Performed By: #### C BC ####[facility] Mwjwufdqsj6359 [place] [address]DrNeo Smyth MCV (RBC) [Entitic vol] 89.8 fL Normal 81.0-99.0 [facility] Comment on above: Performed By: #### C BC ####[facility] Jqsofkykjr[address] [place], [place] [address]DrNeo Smyth MONO # 0.3 103/ul Normal 0.3-0.8 [facility] Comment on above: Performed By: #### C BC ####[facility] Lmwahdbqag[address] [place], [place] [address]Dr. Tadeo Smyth Monocytes/100 WBC (Bld) 5.2 % Normal 1.7-12.0 [facility] Comment on above: Performed By: #### C BC ####[facility] Gerfjectxi[address] [place], [place] [address]DrNeo Smyth NEUT # 3.6 103/ul Normal 1.4-6.5 [facility] Comment on above: Performed By: #### C BC ####[facility] Bptpyrnnei[address] [place], [place] [address]Dr. Tadeo Smyth Neutrophils/100 WBC (Bld) 68.4 % Normal 43.0-75.0 [facility] Comment on above: Performed By: #### C BC ####[facility] Afbmqaqnhv94[address] [place], [place] [address]DrNeo Smyth Platelet mean volume (Bld) [Entitic vol] 9.0 fL Critically low 9.5-13.5 [facility] Comment on above: Performed By: #### C BC ####[facility] Udeuvnswhe6[address] [place], [place] [address]Dr. Tadeo Smyth PLT 356 103/ul Normal 150-450 [facility] Comment on above: Performed By: #### C BC ####[facility] Vfnxlucpfp1012 [place] [id number]. Tadeo Smyth RBC 4.20 106/ul Normal 4.20-5.40 [facility] Comment on above: Performed By: #### C BC ####[facility] Vpylmojlkx8862 [place] [id number]. Tadeo Smyth WBC 5.2 103/ul Normal 4.0-11.0 [facility] Comment on above: Performed By: #### C BC ####[facility] Gghihwhxxf5025 [place] [id number]. Tadeo Smyth CT ABD/PELV W CONon 11-01-[address] ABD/PELV W CON Normal [facility] CULTURE BLOODon 11-01-2022 Microscopic examination of blood, culture Culture Observations: NO GROWTH AT 5 DAYS. Isolate 1 BC_BA_NA Normal [facility] Comment on above: Performed By: #### B LDCX2 ####[facility] Lsduooeffx30[address] [place] [address]Dr. Tadeo Smyth Performed By: #### B LDCX1 ####[facility] Jcearqrurd[address]250 [place] [address]Dr. Tadeo Smyth CULTURE URINEon 11-01-2022 CULTURE URINE Culture Observations : LIGHT GROWTH OF MIXED GENITAL SINTIA. NO POTENTIAL PATHOGENS SEEN. Normal [facility] Comment on above: Performed By: #### U RCX ####[facility] Wpxflmbiwr15[address] [place] [address]Dr. Tadeo Smyth Covid-19 PCR (CVDTBH)on 10-07 SARS-CoV-2 (COVID-19) RNA CHEN+probe Ql (Unsp spec) Not detected Normal NOT DETECTED [facility] Comment on above: Result Comment: When diagnostic [...] for this test is supported by the Junior Financial Analyst of Health and Human Service's declaration that [...] Performed By: #### C VDTBH ####[facility] Ctzpstfdej[address] [place], [place] [address]Dr. Tadeo Smyth LACTATE/LACTIC ACIDon 2022 Lactate [Moles/Vol] 0.7 mmol/L Normal 0.4-1.9 [facility] Comment on above: Performed By: #### L ACT ####[facility] Lleywvpngg[address] [place], [place] [address]Dr. Tadeo Smyth LIPASEon 11-01-2022 Lipase [Catalytic activity/Vol] 58.0 U/L Critically low 73.0-393.0 [facility] Comment on above: Performed By: #### M VIJI Botello LIPA, CMP ####[facility] Khjjyzsrgs[address] [place], [place] [address]Dr. Tadeo Smyth MAGNESIUMon 11-01-2022 Magnesium [Mass/Vol] 2.0 mg/dL Normal 1.8-2.4 [facility] Comment on above: Performed By: #### M VIJI Botello, LIPA, CMP ####[facility] Wagrprxfeh4[address] [place], [place] [address]Dr. Tadeo Smyth PROF 14(COMP METB)on 023 Albumin [Mass/Vol] 3.6 g/dL Normal 3.4-5.0 [facility] Comment on above: Performed By: #### M VIJI Botello LIPA, CMP ####[facility] Trvdygaosy[address] [place], [place] [address]Dr. Tadeo Smyth Albumin/Globulin [Mass ratio] 1.0 {ratio} Normal [facility] Comment on above: Performed By: #### M Ayan, VIJI, LIPA, CMP ####[facility] Eekyyyclbj30[address] [place] [address]Dr. Tadeo Smyth ALP [Catalytic activity/Vol] 164 U/L Critically high 46-116 [facility] Comment on above: Performed By: #### M G, VIJI, LIPA, CMP ####[facility] Pckglopslz978[address] [place] [address]Dr. Tadeo Smyth ALT [Catalytic activity/Vol] 22 U/L Normal 14-59 [facility] Comment on above: Performed By: #### M Ayan, VIJI, LIPA, CMP ####[facility] Obzxeqiomj7264 [place] [address]Dr. Margotnicole Smyth Anion gap [Moles/Vol] 11.5 mmol/L Normal [facility] Comment on above: Performed By: #### M Ayan, VIJI, LIPA, CMP ####[facility] Pfypbuvzqt0[address] [place], [place] [address]Dr. Tadeo Smyth AST [Catalytic activity/Vol] 17 U/L Normal 15-37 [facility] Comment on above: Performed By: #### M Ayan, VIJI, LIPA, CMP ####[facility] Tohycwscup97[address] [place] [address]Dr. Tadeo Smyth Bilirubin [Mass/Vol] 0.4 mg/dL Normal 0.2-1.0 [facility] Comment on above: Performed By: #### M G, VIJI, LIPA, CMP ####[facility] Rqcuglaykm7654 [place] [address]Dr. Tadeo Smyth Calcium [Mass/Vol] 9.1 mg/dL Normal 8.5-10.1 [facility] Comment on above: Performed By: #### M G, VIJI, LIPA, CMP ####[facility] Mtqmmtdxnu8419 [place] [address]Dr. Tadeo Smyth Chloride [Moles/Vol] 105 mmol/L Normal 98-107 [facility] Comment on above: Performed By: #### M G, VIJI, LIPA, CMP ####[facility] Lsadjrhrrb9627 [place] [address]Dr. Tadeo Smyth CO2 [Moles/Vol] 27.6 mmol/L Normal 21.0-32.0 [facility] Comment on above: Performed By: #### M G, VIJI, LIPA, CMP ####[facility] Utrxyvmmao3144 [place] [address]Dr. Tadeo Smyth Creatinine [Mass/Vol] 0.72 mg/dL Normal 0.55-1.02 [facility] Comment on above: Performed By: #### M G, VIJI, LIPA, CMP ####[facility] Dfazqwtcqm[address] [place], [place] [address]Dr. Tadeo Smyth EGFR-AF KENYAN >60 Normal >=60 [facility] Comment on above: Performed By: #### M G, VIJI, LIPA, CMP ####[facility] Klapxjnves9833[address] [place], [place] [address]Dr. Tadeo Smyth EGFR-NON AF KENYAN >60 Normal >=60 [facility] Comment on above: Performed By: #### M G, VIJI, LIPA, CMP ####[facility] Fzdckizaye9276[address] [place], [place] [address]Dr. Tadeo Smyth Globulin (S) [Mass/Vol] 3.6 g/dL Normal [facility] Comment on above: Performed By: #### M G, VIJI, LIPA, CMP ####[facility] Duqqyolvbx05[address] [place], [place] [address]Dr. Tadeo Smyth Glucose [Mass/Vol] 100 mg/dL Normal 74-106 [facility] Comment on above: Performed By: #### M G, VIJI, LIPA, CMP ####[facility] Yecwdvchpc[address] [place], [place] [address]Dr. Tadeo Smyth Potassium [Moles/Vol] 4.1 mmol/L Normal 3.5-5.1 [facility] Comment on above: Performed By: #### M G, VIJI, LIPA, CMP ####[facility] Jkludpgybi3[address] [place], [place] [address]Dr. Tadeo Smyth Protein [Mass/Vol] 7.2 g/dL Normal 6.4-8.2 [facility] Comment on above: Performed By: #### VIJI White LIPA, CMP ####[facility] Ykbamunbbx6066 [place] [address]Dr. Tadeo Smyth Sodium [Moles/Vol] 140 mmol/L Normal 136-145 [facility] Comment on above: Performed By: #### VIJI White LIPA, CMP ####[facility] Apogthiias1282 [place] [address]Dr. Tadeo Smyth Urea nitrogen [Mass/Vol] 15.0 mg/dL Normal 7.0-18.0 [facility] Comment on above: Performed By: #### VIJI White LIPA, CMP ####[facility] Apvkgwfzkl4064[address] [place], [place] [address]Dr. Tadeo Smyth Urea nitrogen/Creatinine [Mass ratio] 20.8 mg/mg Normal [facility] Comment on above: Performed By: #### VIJI White LIPA, CMP ####[facility] Yckchqqjww[address] [place], [place] [address]Dr. Tadeo Smyth UA RANDOM W/MICROSCOPICon BACTERIA TRACE Abnormal NONE SEEN [facility] Comment on above: Performed By: #### U AMIC ####[facility] Lgxklqnjux[address] [place], [place] [address]Dr. Tadeo Smyth Bilirubin Ql (U) Negative Normal NEGATIVE [facility] Comment on above: Performed By: #### U AMIC ####[facility] Zwvuzibntm[address] [place], [place] [address]Dr. Tadeo Smyth CAST NONE SEEN Normal NONE SEEN [facility] Comment on above: Performed By: #### U AMIC ####[facility] Tmezttfvzf90[address] [place], [place] [address]Dr. Tadeo Smyth Clarity (U) CLEAR Normal CLEAR [facility] Comment on above: Performed By: #### U AMIC ####[facility] Gulzggzved[address] [place], [place] [address]Dr. Yilan Smyth Color (U) LT. YELLOW Normal YELLOW [facility] Comment on above: Performed By: #### U AMIC ####[facility] Kpodhoofuq1898 [place] [address]Dr. Tadeo Smyth Crystals LM Nom (Urine sed) NONE SEEN Normal NONE SEEN [facility] Comment on above: Performed By: #### U AMIC ####[facility] Waiftzihbr3607 [place] [address]Dr. Tadeo Smyth Epithelial cells LM Ql (Urine sed) RARE Normal NONE SEEN /RARE [facility] Comment on above: Performed By: #### U AMIC ####[facility] Fikqofxzyt4395 [place] [address]Dr. Tadeo Smyth Glucose Ql (U) Negative Normal NEGATIVE [facility] Comment on above: Performed By: #### U AMIC ####[facility] Ncjufeyenp5480 [place] [address]Dr. Tadeo Smyth Hemoglobin Ql (U) TRACE-LYSED Abnormal NEGATIVE [facility] Comment on above: Performed By: #### U AMIC ####[facility] Dfuxepwhda9247 [place] [address]Dr. Tadeo Smyth Ketones Ql (U) Negative Normal NEGATIVE [facility] Comment on above: Performed By: #### U AMIC ####[facility] Xbyrsumeic6277 [place] [address]Dr. Tadeo Smyth LEUKOCYTES Negative Normal NEGATIVE [facility] Comment on above: Performed By: #### U AMIC ####[facility] Ikkrsnmnsr4765 [place] [address]Dr. Tadeo Smyth MUCOUS NONE SEEN Normal NONE SEEN [facility] Comment on above: Performed By: #### U AMIC ####[facility] Ccgtcmpmet[address] [place], [place] [address]Dr. Tadeo Smyth Nitrite Ql (U) Negative Normal NEGATIVE [facility] Comment on above: Performed By: #### U AMIC ####[facility] Ajeaaehoho9758 [place] [address]Dr. Tadeo Smyth pH (U) 6.0 [pH] Normal 5-9 [facility] Comment on above: Performed By: #### U AMIC ####[facility] Iulybsjdvb1115 [place] [address]Dr. Tadeo Smyth RBC 0-2 Normal 0-2 [facility] Comment on above: Performed By: #### U AMIC ####[facility] Xoyqumvttg4347 [place] [id number]. Tadeo Smyth SPEC GRAVITY 1.010 Normal 1.005-<=1.0 25 [facility] Comment on above: Performed By: #### U AMIC ####[facility] Tklqqjqyqg0004 [place] [id number]. Tadeo Smyth UA PROTEIN Negative Normal NEGATIVE/ TRACE [facility] Comment on above: Performed By: #### U AMIC ####[facility] Jsxjzkruhq4668 [place] [id number]. Tadeo Smyth Urobilinogen Qn (U) 0.2 {Benito'U}/dL Normal 0.2 - 1. 0 [facility] Comment on above: Performed By: #### U AMIC ####[facility] Vfazaeqpwc7304 [place] [id number]. Tadeo Smyth WBC 0-2 Abnormal NONE SEEN [facility] Comment on above: Performed By: #### U AMIC ####[facility] Rzzperukbd5581 [place] [id number]. Tadoe Smyth Activated partial thrombopla stin time (aPTT) in platelet poor plasma by coagulation aOrdered By: Conner Griffith on 10-26-2022 aPTT Coag (PPP) [Time] 30.8 s 25.1-36.[address] [facility] Albumin [Mass/volume] in Ser um or PlasmaOrdered By: Conner Griffith on 10-26-2022 Albumin [Mass/Vol] 3.6 g/dL 3.2-5.5 [facility] Automated erythrocytes count in urine sediment (number/area)Ordered [...] on 10-26-2022 Bilirubin Ql (U) Negative Negative [facility] Color Auto (U)Ordered By: Kevin Griffith on 10-26-2022 Color (U) Yellow Yellow [facility] Creatinine and Glomerular fi ltration rate.predicted panel (S/P/Bld)Ordered By: Conner Griffith on 10-26-2022 Creatinine [Mass/Vol] 0.81 mg/dL 0.44-1.03 [facility] Eosinophils Auto (Bld) [#/Vo l]Ordered [...] PT Coag (PPP) [Time] 10.6 s 9.0-12.9 [facility] - UrinalysisOrder ed By: Conner [...] 10-26-2022 MCHC (RBC) [Mass/Vol] 33.1 g/dL 32.0-35.0 [facility] MCV Auto (RBC) [Entitic vol] [...] on 10-26-2022 Protein [Mass/Vol] 6.8 g/dL 6.1-7.9 [facility] RBC Auto (Bld) [#/Vol]Ordere d By: Conner Griffith on 10-26-2022 RBC (Bld) [#/Vol] 4.14 10*6/uL 3.60-5.00 [facility] Serum or plasma alanine cooley otransferase [...] 10-26-2022 Anion gap [Moles/Vol] 11.3 mmol/L 6.0-15.0 [facility] Serum or plasma aspartate am inotransferase measurement (enzymatic activity/volume)Ordered By: Conner Griffith on 10-26-2022 AST [Catalytic activity/Vol] 19 U/L 10-[address] [facility] Serum or plasma calcium julee urement (mass/volume)Ordered By: Conner Griffith on 10-26-2022 Calcium [Mass/Vol] 8.9 mg/dL 8.2-10.2 [facility] Serum or plasma chloride julio surement (moles/volume)Ordered By: Conner Griffith on 10-26-2022 Chloride [Moles/Vol] 108 mmol/L 95-114 [facility] Serum or plasma glucose julee urement (mass/volume)Ordered By: Conner Griffith on 10-26-2022 Glucose [Mass/Vol] 95 mg/dL 70-100 [facility] Comment on above: ADA recommended refe rence rangeRandom Glucose Reference Range is dependent on time and content of last meal. Glucose of more than 200 mg/dL in a nonstressed, ambulatory subject supports the diagnosis of Diabetes Mellitus. Serum or plasma potassium me asurement (moles/volume)Ordered By: Conner Griffith on 10-26-2022 Potassium [Moles/Vol] 3.4 mmol/L 3.5-5.1 [facility] Serum or plasma sodium measu rement (moles/volume)Ordered By: Conner Griffith on 10-26-2022 Sodium [Moles/Vol] 141 mmol/L 136-146 [facility] Serum or plasma total biliru bin measurement (mass/volume)Ordered By: Conner Griffith on 10-26-2022 Bilirubin [Mass/Vol] 0.4 mg/dL 0.3-1.2 [facility] Serum or plasma total carbon dioxide measurement (moles/volume)Ordered By: Conner Griffith on 10-26-2022 CO2 [Moles/Vol] 25.1 mmol/L 22.0-30.0 [facility] Serum or plasma urea nitroge n measurement (mass/volume)Ordered By: Conner Griffith on 10-26-2022 Urea nitrogen [Mass/Vol] 18 mg/dL 05-[address] [facility] Specific gravity [...] Auto Ql (U) None seen None Seen [facility] Urine clarity by refractomet ry automatedOrdered [...] 10-26-2022 WBC (Bld) [#/Vol] 6.3 10*3/uL 3.8-11.6 [facility] pH Auto test strip (U)Ordere d By: Conner Griffith on 10-26-2022 pH (U) 6.5 [pH] 5.0-9.[address] [facility] CBC AUTO DIFFon 09-21-2022 BASO # 0.0 103/ul Normal 0.0-0.1 [facility] Comment on above: Performed By: #### C BC ####[facility] Koqhfkdjqs[address] [place], [place] [address]Dr. Tadeo Smyth Basophils/100 WBC (Bld) 0.4 % Normal 0.2-2.0 [facility] Comment on above: Performed By: #### C BC ####[facility] Mgvydknaga39[address] [place], [place] [address]Dr. Tadeo Smyth EO # 0.1 103/ul Normal 0.0-0.7 [facility] Comment on above: Performed By: #### C BC ####[facility] Smfjzeftlx8820 [place] [address]Dr. Tadeo Smyth Eosinophils/100 WBC (Bld) 1.8 % Normal 0.9-7.0 [facility] Comment on above: Performed By: #### C BC ####[facility] Iuvnzhgssf0[address] [place], [place] [address]Dr. Tadeo Smyth Erythrocyte distribution width (RBC) [Ratio] 13.8 % Normal 11.0-15.0 [facility] Comment on above: Performed By: #### C BC ####[facility] Fobujcvisj7972[address] [place], [place] [address]Dr. Tadeo Smyth Hematocrit (Bld) [Volume fraction] 41.0 % Normal 36.0-48.0 [facility] Comment on above: Performed By: #### C BC ####[facility] Sroumicrvm1690 [place] [phone]. Tadeo Smyth Hemoglobin (Bld) [Mass/Vol] 13.3 g/dL Normal 12.0-16.0 [facility] Comment on above: Performed By: #### C BC ####[facility] Aexppmbdnc8362 [place] [phone]. Tadeo Smyth IG # 0.01 10e3/ul Normal 0.00-0.03 [facility] Comment on above: Performed By: #### C BC ####[facility] Kaelmxvkfn4689 [place] [address]Dr. Tadeo Smyth IG % 0.1 % Normal 0.0-0.5 [facility] Comment on above: Performed By: #### C BC ####[facility] Yihpcorbnz34[address] [place], [place] [address]Dr. Tadeo Smyth LYMPH # 1.7 103/ul Normal 1.2-3.8 [facility] Comment on above: Performed By: #### C BC ####[facility] Ibcomscwzz3484 [place] [address]Dr. Tadeo Smyth Lymphocytes/100 WBC (Bld) 24.8 % Normal 20.5-60.0 [facility] Comment on above: Performed By: #### C BC ####[facility] Msqvrszisu0457 [place] [address]Dr. Tadeo Smyth MANUAL DIFF REQ NO Normal [facility] Comment on above: Performed By: #### C BC ####[facility] Otliynphqo[address] [place], [place] [id number]. Tadeo Smyth MCH (RBC) [Entitic mass] 29.0 pg Normal 26.7-34.0 [facility] Comment on above: Performed By: #### C BC ####[facility] Veblwndmdy8253 [place] [phone]. Tadeo Smyth MCHC (RBC) [Mass/Vol] 32.4 g/dL Normal 29.9-35.2 [facility] Comment on above: Performed By: #### C BC ####[facility] Hplrcpeqtf5627 [place] [phone]. Tadeo Smyth MCV (RBC) [Entitic vol] 89.3 fL Normal 81.0-99.0 [facility] Comment on above: Performed By: #### C BC ####[facility] Pkmnjgxuex1046 [place] [phone]. Tadeo Smyth MONO # 0.5 103/ul Normal 0.3-0.8 [facility] Comment on above: Performed By: #### C BC ####[facility] Lagwjdlqsh[address] [place], [place] [id number]. Tadeo Smyth Monocytes/100 WBC (Bld) 6.9 % Normal 1.7-12.0 [facility] Comment on above: Performed By: #### C BC ####[facility] Kxuorngtat029[address] [place], [place] [address]Dr. Tadeo Smyth NEUT # 4.5 103/ul Normal 1.4-6.5 [facility] Comment on above: Performed By: #### C BC ####[facility] Uigritrxwn8858[address] [place], [place] [address]Dr. Tadeo Smyth Neutrophils/100 WBC (Bld) 66.0 % Normal 43.0-75.0 [facility] Comment on above: Performed By: #### C BC ####[facility] Fobcnvauch2932[address] [place], [place] [address]Dr. Tadeo Smyth Platelet mean volume (Bld) [Entitic vol] 8.8 fL Critically low 9.5-13.5 [facility] Comment on above: Performed By: #### C BC ####[facility] Agvhshckqf87[address] [place], [place] [id number]. Tadeo Smyth PLT 384 103/ul Normal 150-450 [facility] Comment on above: Performed By: #### C BC ####[facility] Vtfygwyhvs175[address] [place], [place] [id number]. Tadeo Smyth RBC 4.59 106/ul Normal 4.20-5.40 [facility] Comment on above: Performed By: #### C BC ####[facility] Efwtxxdhen0057 [place] [phone]. Tadeo Haja WBC 6.8 103/ul Normal 4.0-11.0 [facility] Comment on above: Performed By: #### C BC ####[facility] Mwivxrtssj3916 [place] [address]Dr. Tadeo Haja PROF CHEM 8 (BAS METB)on Anion gap [Moles/Vol] 13.8 mmol/L Normal [facility] Comment on above: Performed By: #### B MP ####[facility] Fkjzyczmch0450 [place] [address]Dr. Tadeo Smyth Calcium [Mass/Vol] 9.6 mg/dL Normal 8.5-10.1 [facility] Comment on above: Performed By: #### B MP ####[facility] Kzoqgpktpc80[address] [place], [place] [address]Dr. Tadeo Smyth Chloride [Moles/Vol] 106 mmol/L Normal 98-107 [facility] Comment on above: Performed By: #### B MP ####[facility] Diaexpjbye9391 [place] [address]Dr. Margotnicole Smyth CO2 [Moles/Vol] 25.9 mmol/L Normal 21.0-32.0 [facility] Comment on above: Performed By: #### B MP ####[facility] Vtzkucgoav4[address] [place], [place] [address]Dr. Tadeo Smyth Creatinine [Mass/Vol] 0.92 mg/dL Normal 0.55-1.02 [facility] Comment on above: Performed By: #### B MP ####[facility] Lakpybsntu2478 [place] [address]Dr. Tadeo Smyth EGFR-AF KENYAN >60 Normal >=60 [facility] Comment on above: Performed By: #### B MP ####[facility] Wfhlqzqquz[address] [place], [place] [address]Dr. Tadeo Smyth EGFR-NON AF KENYAN >60 Normal >=60 [facility] Comment on above: Performed By: #### B MP ####[facility] Frjeehdoxi7765 [place] [phone]. Tadeo Smyth Glucose [Mass/Vol] 98 mg/dL Normal 74-106 [facility] Comment on above: Performed By: #### B MP ####[facility] Ugcehyegji2156 [place] [address]Dr. Tadeo Smyth Potassium [Moles/Vol] 3.7 mmol/L Normal 3.5-5.1 [facility] Comment on above: Performed By: #### B MP ####[facility] Uxfpdmuquh5800 [place] [address]Dr. Tadeo Smyth Sodium [Moles/Vol] 142 mmol/L Normal 136-145 [facility] Comment on above: Performed By: #### B MP ####[facility] Cmhhpmoiql7[address] [place], [place] [address]Dr. Tadeo Smyth Urea nitrogen [Mass/Vol] 19.0 mg/dL Critically high 7.0-18.0 [facility] Comment on above: Performed By: #### B MP ####[facility] Lqbkpyjzlz7[address] [place], [place] [address]Dr. Tadeo Smyth Urea nitrogen/Creatinine [Mass ratio] 20.7 mg/mg Normal [facility] Comment on above: Performed By: #### B MP ####[facility] Xndyciryen9[address] [place], [place] [address]Dr. Tadeo Smyth XR KUB 1 VIEWon 09-21-2022 XR KUB 1 VIEW Normal [facility] AMYLASEon 09-18-2022 Amylase [Catalytic activity/Vol] 58 U/L Normal 25-115 [facility] Comment on above: Performed By: #### L IPA, CMP, VIJI ####[facility] Ybyqgfckpa5537 [place] [address]Dr. Tadeo Smyth CBC AUTO DIFFon 09-18-2022 BASO # 0.0 103/ul Normal 0.0-0.1 [facility] Comment on above: Performed By: #### C BC ####[facility] Ivmrusuyrz17[address] [place], [place] [address]Dr. Tadeo Smyth Basophils/100 WBC (Bld) 0.3 % Normal 0.2-2.0 [facility] Comment on above: Performed By: #### C BC ####[facility] Ezmexpgsrz15[address] [place], [place] [address]DrNeo Smyth EO # 0.1 103/ul Normal 0.0-0.7 [facility] Comment on above: Performed By: #### C BC ####[facility] Qgvmlemdmg[address] [place], [place] [address]Dr. Tadeo Smyth Eosinophils/100 WBC (Bld) 1.8 % Normal 0.9-7.0 [facility] Company Comment on above: Performed By: #### C BC ####[facility] Isewzqiqaj[address] [place], [place] [address]Dr. Tadeo Smyth Erythrocyte distribution width (RBC) [Ratio] 13.7 % Normal 11.0-15.0 [facility] Comment on above: Performed By: #### C BC ####[facility] Uzgkgmotko8[address] [place], [place] [address]Dr. Tadeo Smyth Hematocrit (Bld) [Volume fraction] 37.4 % Normal 36.0-48.0 [facility] Comment on above: Performed By: #### C BC ####[facility] Klnetdammx144[address] [place], [place] [address]DreNo Smyth Hemoglobin (Bld) [Mass/Vol] 12.3 g/dL Normal 12.0-16.0 [facility] Comment on above: Performed By: #### C BC ####[facility] Pfknzgbney[address] [place], [place] [address]DrNeo Smyth IG # 0.02 10e3/ul Normal 0.00-0.03 [facility] Comment on above: Performed By: #### C BC ####[facility] Degkaobddk[address] [place], [place] [address]DrNeo Smyth IG % 0.3 % Normal 0.0-0.5 [facility] Comment on above: Performed By: #### C BC ####[facility] Fmzyqiklpg68[address] [place], [place] [address]DrNeo Smyth LYMPH # 2.2 103/ul Normal 1.2-3.8 [facility] Comment on above: Performed By: #### C BC ####[facility] Uusgyfoizw70[address] [place] [address]Dr. Tadeo Smyth Lymphocytes/100 WBC (Bld) 29.3 % Normal 20.5-60.0 [facility] Comment on above: Performed By: #### C BC ####[facility] Yxghpcguec6140 [place] [address]Dr. Tadeo Smyth MANUAL DIFF REQ NO Normal [facility] Comment on above: Performed By: #### C BC ####[facility] Qrzsuldcjb4400 [place] [address]Dr. Tadeo Smyth MCH (RBC) [Entitic mass] 29.0 pg Normal 26.7-34.0 [facility] Comment on above: Performed By: #### C BC ####[facility] Rmhzatinpm6[address] [place], [place] [address]Dr. Tadeo Smyth MCHC (RBC) [Mass/Vol] 32.9 g/dL Normal 29.9-35.2 [facility] Comment on above: Performed By: #### C BC ####[facility] Ndujrajdsj8299[address] [place], [place] [address]Dr. Tadeo Smyth MCV (RBC) [Entitic vol] 88.2 fL Normal 81.0-99.0 [facility] Comment on above: Performed By: #### C BC ####[facility] Rlbpzbzqlj89[address] [place], [place] [address]Dr. Tadeo Smyth MONO # 0.5 103/ul Normal 0.3-0.8 [facility] Comment on above: Performed By: #### C BC ####[facility] Qhrqzvledj30[address] [place], [place] [address]Dr. Tadeo Smyth Monocytes/100 WBC (Bld) 6.4 % Normal 1.7-12.0 [facility] Comment on above: Performed By: #### C BC ####[facility] Tsabacchmz7378[address] [place], [place] [address]Dr. Tadeo Smyth NEUT # 4.7 103/ul Normal 1.4-6.5 [facility] Comment on above: Performed By: #### C BC ####[facility] Onudyixgoo5[address] [place] [address]Dr. Tadeo Smyth Neutrophils/100 WBC (Bld) 61.9 % Normal 43.0-75.0 [facility] Comment on above: Performed By: #### C BC ####[facility] Jvopjjkxob8940 [place] [address]Dr. Tadeo Haja Platelet mean volume (Bld) [Entitic vol] 9.0 fL Critically low 9.5-13.5 [facility] Comment on above: Performed By: #### C BC ####[facility] Jqzeyecoyj00[address] [place], [place] [address]Dr. Tadeo Smyth PLT 395 103/ul Normal 150-450 [facility] Comment on above: Performed By: #### C BC ####[facility] Uedtxquyhh2395[address] [place], [place] [address]Dr. Tadeo Smyth RBC 4.24 106/ul Normal 4.20-5.40 [facility] Comment on above: Performed By: #### C BC ####[facility] Hlfosznssn5019[address] [place], [place] [address]Dr. Margotnicole Haja WBC 7.6 103/ul Normal 4.0-11.0 [facility] Comment on above: Performed By: #### C BC ####[facility] Tsczfnghro01[address] [place], [place] [address]Dr. Tadeo Smyth CT ABD/PELV W CONon 09-18-[address] ABD/PELV W CON Normal [facility] ER URINE PROFILEon 3 Bilirubin Ql (U) SMALL Abnormal NEGATIVE [facility] Comment on above: Performed By: #### KAROL MECRHANT ####[facility] Mpxckiugwk5218 [place] [address]Dr. Tadeo Smyth Clarity (U) CLEAR Normal CLEAR [facility] Comment on above: Performed By: #### SANDRO MERCHANTRO ####[facility] Iyskkayesb87[address] [place], [place] [address]Dr. Tadeo Smyth Color (U) DK. YELLOW Normal YELLOW [facility] Comment on above: Performed By: #### KAROL MERCHANT ####[facility] Qanwinbhbp0135[address] [place], [place] [address]Dr. Tadeo PANAHD A micrscopic examina tion will be performed if indicated. Normal [facility] Comment on above: Performed By: #### SANDRO MERCHANTRO ####[facility] Flkdpdvdsx1766[address] [place], [place] [address]Dr. Tadeo Smyth Glucose Ql (U) Negative Normal NEGATIVE [facility] Comment on above: Performed By: #### KAROL MERCHANT ####[facility] Jvsgujkjqc3125[address] [place], [place] [address]Dr. Tadeo Smyth Hemoglobin Ql (U) SMALL Abnormal NEGATIVE [facility] Comment on above: Performed By: #### KAROL MERCHANT ####[facility] Rzwxdkhfvi7157[address] [place], [place] [address]Dr. Tadeo Smyth Ketones Ql (U) Negative Normal NEGATIVE [facility] Comment on above: Performed By: #### KAROL MERCHANT ####[facility] Onjmtdwman3508[address] [place], [place] [address]Dr. Tadeo Smyth LEUKOCYTES Negative Normal NEGATIVE [facility] Comment on above: Performed By: #### SANDRO MERCHANTRO ####[facility] Fjcppmiklj8878[address] [place], [place] [address]Dr. Tadeo Smyth Nitrite Ql (U) Negative Normal NEGATIVE [facility] Comment on above: Performed By: #### SANDRO MERCHANTRO ####[facility] Nbikkampzh2398[address] [place], [place] [address]Dr. Tadeo Smyth pH (U) 5.5 [pH] Normal 5-9 [facility] Comment on above: Performed By: #### SANDRO MERCHANTRO ####[facility] Ywwhtyvrtx9073 [place] [address]Dr. Tadeo Smyth SPEC GRAVITY >=1.030 Abnormal 1.005-<=1.0 25 [facility] Comment on above: Performed By: #### Matthew FRANCISCO, RANDIICRO ####[facility] Hwhfmrbjai49[address] [place] [address]Dr. Tadeo Smyth UA PROTEIN TRACE Normal NEGATIVE/ TRACE [facility] Comment on above: Performed By: #### Matthew FRANCISCO, SANDRORO ####[facility] Nrhpivuomb4325 [place] [address]Dr. Tadeo Smyth UR MICRO IND INDICATED Normal [facility] Comment on above: Performed By: #### SANDRO MERCHANTRO ####[facility] Jxvewgpwch7762 [place] [address]Dr. Tadeo Smyth Urobilinogen Qn (U) 0.2 {Benito'U}/dL Normal 0.2 - 1. 0 [facility] Comment on above: Performed By: #### SANDRO MERCHANTRO ####[facility] Wsqhbhgvvo303[address] [place], [place] [address]Dr. Tadeo Smyth LACTATE/LACTIC ACIDon 2022 Lactate [Moles/Vol] 1.1 mmol/L Normal 0.4-1.9 [facility] Comment on above: Performed By: #### L ACT ####[facility] Csuxugzugz4676[address] [place], [place] [address]Dr. Tadeo Smyth LIPASEon 09-18-2022 Lipase [Catalytic activity/Vol] 75.0 U/L Normal 73.0-393.0 [facility] Comment on above: Performed By: #### L IPA CMP, VIJI ####[facility] Obbvcqhmhc3689[address] [place], [place] [address]Dr. Tadeo Smyth PROF 14(COMP METB)on 023 Albumin [Mass/Vol] 3.4 g/dL Normal 3.4-5.0 [facility] Comment on above: Performed By: #### L IPA CMP, VIJI ####[facility] Ynmmmsvzmx8815[address] [place], [place] [address]Dr. Tadeo Smyth Albumin/Globulin [Mass ratio] 0.9 {ratio} Normal [facility] Comment on above: Performed By: #### L IPA, CMP, VIJI ####[facility] Lyncwqolwo9[address] [place] [address]Dr. Tadeo Smyth ALP [Catalytic activity/Vol] 164 U/L Critically high 46-116 [facility] Comment on above: Performed By: #### L IPA, CMP, VIJI ####[facility] Budakdhgfx3644 [place] [address]Dr. Tadeo Smyth ALT [Catalytic activity/Vol] 29 U/L Normal 14-59 [facility] Comment on above: Performed By: #### L IPA, CMP, VIJI ####[facility] Pxhxpdagmw1500 [place] [address]Dr. Tadeo Smyth Anion gap [Moles/Vol] 12.3 mmol/L Normal [facility] Comment on above: Performed By: #### L IPA, CMP, VIJI ####[facility] Voudxmupbx[address] [place], [place] [address]Dr. Tadeo Smyth AST [Catalytic activity/Vol] 30 U/L Normal 15-37 [facility] Comment on above: Performed By: #### L IPA, CMP, VIJI ####[facility] Ajzgadiwfd030[address] [place], [place] [address]Dr. Tadeo Smyth Bilirubin [Mass/Vol] 0.3 mg/dL Normal 0.2-1.0 [facility] Comment on above: Performed By: #### L IPA, CMP, VIJI ####[facility] Iyjvvotcqg[address] [place], [place] [address]Dr. Tadeo Smyth Calcium [Mass/Vol] 8.9 mg/dL Normal 8.5-10.1 [facility] Comment on above: Performed By: #### L IPA, CMP, VIJI ####[facility] Msjgpdpovd9032 [place] [address]Dr. Tadeo Smyth Chloride [Moles/Vol] 103 mmol/L Normal 98-107 [facility] Comment on above: Performed By: #### L IPA, CMP, VIJI ####[facility] Dheitsqjpm1584 [place] [address]Dr. Tadeo Smyth CO2 [Moles/Vol] 27.8 mmol/L Normal 21.0-32.0 [facility] Comment on above: Performed By: #### L IPA, CMP, VIJI ####[facility] Uwhapyiwlr8815 [place] [address]Dr. Tadeo Smyth Creatinine [Mass/Vol] 0.89 mg/dL Normal 0.55-1.02 [facility] Comment on above: Performed By: #### L IPA, CMP, VIJI ####[facility] Flscvuwwfs8912 [place] [id number]. Tadeo Smyth EGFR-AF KENYAN >60 Normal >=60 [facility] Comment on above: Performed By: #### L IPA, CMP, VIJI ####[facility] Mzhjsbeoab3768 [place] [address]Dr. Tadeo Smyth EGFR-NON AF KENYAN >60 Normal >=60 [facility] Comment on above: Performed By: #### L IPA, CMP, VIJI ####[facility] Jmelgcipvk2098 [place] [address]Dr. Tadeo Smyth Globulin (S) [Mass/Vol] 3.9 g/dL Normal [facility] Comment on above: Performed By: #### L IPA, CMP, VIJI ####[facility] Upxjiidslv9687 [place] [address]Dr. Tadeo Smyth Glucose [Mass/Vol] 96 mg/dL Normal 74-106 [facility] Comment on above: Performed By: #### L IPA, CMP, VIJI ####[facility] Nobpdyrxcb8406 [place] [id number]. Tadeo Smyth Potassium [Moles/Vol] 4.1 mmol/L Normal 3.5-5.1 [facility] Comment on above: Performed By: #### L IPA, CMP, VIIJ ####[facility] Qgwwwbiarj6054 [place] [address]Dr. Tadeo Smyth Protein [Mass/Vol] 7.3 g/dL Normal 6.4-8.2 [facility] Comment on above: Performed By: #### L IPA, CMP, VIJI ####[facility] Hdnafbzqxr2686 [place] [address]Dr. Margotnicole Smyth Sodium [Moles/Vol] 139 mmol/L Normal 136-145 [facility] Comment on above: Performed By: #### L DIANN HALL, VIJI ####[facility] Ncbgytuikp1651 [place] [address]Dr. Tadeo Haja Urea nitrogen [Mass/Vol] 19.0 mg/dL Critically high 7.0-18.0 [facility] Comment on above: Performed By: #### L DIANN HALL, VIJI ####[facility] Jhvcoooeln1267 [place] [address]Dr. Margotnicole Smyth Urea nitrogen/Creatinine [Mass ratio] 21.3 mg/mg Normal [facility] Comment on above: Performed By: #### L DIANN HALL, VIJI ####[facility] Nusvpkyyxf6511 [place] [address]Dr. Tadeo Smyth URINE MICROSCOPIC ONLYon BACTERIA TRACE Abnormal NONE SEEN [facility] Comment on above: Performed By: #### Matthew FRANCISCO UMCHINEDURO ####[facility] Nfsiztugyg6164[address] [place], [place] [address]Dr. Tadeo Smyth Bacteria identified Cx Nom (U) NOT INDICATED Normal [facility] Comment on above: Performed By: #### SANDRO MERCHANTRO ####[facility] Hfxojeqiln0413 [place] [address]Dr. Tadeo Smyth CAST NONE SEEN Normal NONE SEEN [facility] Comment on above: Performed By: #### Matthew FRANCISCO UMCHINEDURO ####[facility] Iblmjyojol3940 [place] [address]Dr. Tadeo Smyth Crystals LM Nom (Urine sed) SEEN Abnormal NONE SEEN [facility] Comment on above: Performed By: #### Matthew FRANCISCO UMICRO ####[facility] Spblwwtets3051 [place] [address]Dr. Tadeo Smyth Epithelial cells LM Ql (Urine sed) RARE Normal NONE SEEN /RARE [facility] Comment on above: Performed By: #### Matthew FRANCISCO UMCHINEDURO ####[facility] Krsvdjbkqg2965 [place] [address]Dr. Tadeo Haja MUCOUS TRACE Abnormal NONE SEEN [facility] Comment on above: Performed By: #### KAROL MERCHANT ####[facility] Bhgdtntrxf8654[address] [place], [place] [address]Dr. Tadeo Smyth RBC 0-2 Normal 0-2 [facility] Comment on above: Performed By: #### KAROL MERCHANT ####[facility] Zhswwlooow5713[address] [place], [place] [address]Dr. Margotnicole Smyth WBC 0-2 Abnormal NONE SEEN [facility] Comment on above: Performed By: #### KAROL MERCHANT ####[facility] Yrjjdqcbrr[address] [place], [place] [address]Dr. Margotnicole Smyth CBC AUTO DIFFon 09-14-2022 BASO # 0.0 103/ul Normal 0.0-0.1 [facility] Comment on above: Performed By: #### C BC ####[facility] Ltwnoqyfwj7986[address] [place], [place] [address]Dr. Tadeo Smyth Basophils/100 WBC (Bld) 0.3 % Normal 0.2-2.0 [facility] Comment on above: Performed By: #### C BC ####[facility] Alxpskbovm027[address] [place], [place] [address]Dr. Tadeo Smyth EO # 0.2 103/ul Normal 0.0-0.7 [facility] Comment on above: Performed By: #### C BC ####[facility] Lrujonvglr8966[address] [place], [place] [address]Dr. Tadeo Smyth Eosinophils/100 WBC (Bld) 1.1 % Normal 0.9-7.0 [facility] Comment on above: Performed By: #### C BC ####[facility] Obgiwuhetr1079[address] [place], [place] [address]Dr. Margotnicole Smyth Erythrocyte distribution width (RBC) [Ratio] 13.7 % Normal 11.0-15.0 [facility] Comment on above: Performed By: #### C BC ####[facility] Pyfnegprmp8778[address] [place], [place] [address]Dr. Tadeo Smyth Hematocrit (Bld) [Volume fraction] 41.3 % Normal 36.0-48.0 [facility] Comment on above: Performed By: #### C BC ####[facility] Rwkmehhbgw9370 [place] [address]Dr. Tadeo Smyth Hemoglobin (Bld) [Mass/Vol] 13.6 g/dL Normal 12.0-16.0 [facility] Comment on above: Performed By: #### C BC ####[facility] Blgkhlkpiq4344 [place] [address]DrNeo Frostnicole Haja IG # 0.05 10e3/ul Critically high 0.00-0.03 [facility] Comment on above: Performed By: #### C BC ####[facility] Tnqkcwtwhv132[address] [place], [place] [address]DrNeo Smyth IG % 0.4 % Normal 0.0-0.5 [facility] Comment on above: Performed By: #### C BC ####[facility] Btbhalxmva13[address] [place], [place] [address]DrNeo Margotnicole Smyth LYMPH # 2.2 103/ul Normal 1.2-3.8 [facility] Comment on above: Performed By: #### C BC ####[facility] Fyuuugoiue783[address] [place], [place] [address]DrNeo Margotnicole Smyth Lymphocytes/100 WBC (Bld) 16.3 % Critically low 20.5-60.0 [facility] Comment on above: Performed By: #### C BC ####[facility] Dsosbvselc9432[address] [place], [place] [address]DrNeo Margotnicole Smyth MANUAL DIFF REQ NO Normal [facility] Comment on above: Performed By: #### C BC ####[facility] Bgukeiwckv4611[address] [place], [place] [address]DrNeo Margotnicole Smyth MCH (RBC) [Entitic mass] 28.9 pg Normal 26.7-34.0 [facility] Comment on above: Performed By: #### C BC ####[facility] Tgzxytnsji8669[address] [place], [place] [address]DrNeo Margotnicole Smyth MCHC (RBC) [Mass/Vol] 32.9 g/dL Normal 29.9-35.2 [facility] Comment on above: Performed By: #### C BC ####[facility] Sxuxyqhnhg4702 [place] [address]DrNeo Smyth MCV (RBC) [Entitic vol] 87.9 fL Normal 81.0-99.0 [facility] Comment on above: Performed By: #### C BC ####[facility] Xuvxiafjpz6546[address] [place], [place] [address]DrNeo Smyth MONO # 0.7 103/ul Normal 0.3-0.8 [facility] Comment on above: Performed By: #### C BC ####[facility] Hbfelcgtuf746[address] [place], [place] [address]DrNeo Smyth Monocytes/100 WBC (Bld) 5.1 % Normal 1.7-12.0 [facility] Comment on above: Performed By: #### C BC ####[facility] Khdyrgfidr984[address] [place], [place] [address]Dr. Tadeo Smyth NEUT # 10.3 103/ul Critically high 1.4-6.5 [facility] Comment on above: Performed By: #### C BC ####[facility] Jcpddumhzg0669[address] [place], [place] [address]DrNeo Smyth Neutrophils/100 WBC (Bld) 76.8 % Critically high 43.0-75.0 [facility] Comment on above: Performed By: #### C BC ####[facility] Jvhwmoyzql3074[address] [place], [place] [address]DrNeo Smyth Platelet mean volume (Bld) [Entitic vol] 8.8 fL Critically low 9.5-13.5 [facility] Comment on above: Performed By: #### C BC ####[facility] Srwwqdbykr[address] [place], [place] [id number]. Tadeo Smyth PLT 438 103/ul Normal 150-450 [facility] Comment on above: Performed By: #### C BC ####[facility] Pczncmphcc[address] [place], [place] [id number] Smyth RBC 4.70 106/ul Normal 4.20-5.40 [facility] Comment on above: Performed By: #### C BC ####[facility] Iqkajjoczy1808[address] [place], [place] [address]Dr. Tadeo Smyth WBC 13.4 103/ul Critically high 4.0-11.0 [facility] Comment on above: Performed By: #### C BC ####[facility] Kwcnrnopox7546[address] [place], [place] [address]Dr. Tadeo Smyth ER URINE PROFILEon 3 Bilirubin Ql (U) Negative Normal NEGATIVE [facility] Comment on above: Performed By: #### Matthew FRANCISCO UMICRO ####[facility] Xjjiuicdnd065[address] [place], [place] [address]Dr. Tadeo Smyth Clarity (U) CLEAR Normal CLEAR [facility] Comment on above: Performed By: #### Matthew FRANCISCO UMICRO ####[facility] Ffioqeutzh9[address] [place], [place] [address]Dr. Tadeo Smyth Color (U) LT. YELLOW Normal YELLOW [facility] Comment on above: Performed By: #### Matthew FRANCISCO UMICRO ####[facility] Lviuxeykrm1587[address] [place], [place] [address]Dr. Tadeo CAMARGOD A micrscopic examina tion will be performed if indicated. Normal [facility] Comment on above: Performed By: #### Matthew FRANCISCO UMICRO ####[facility] Iywncwsmlu8605[address] [place], [place] [address]Dr. Tadeo Smyth Glucose Ql (U) Negative Normal NEGATIVE [facility] Comment on above: Performed By: #### Matthew FRANCISCO UMICRO ####[facility] Wnvnjduupq5486[address] [place], [place] [address]Dr. Tadeo Smyth Hemoglobin Ql (U) TRACE-INTACT Abnormal NEGATIVE [facility] Comment on above: Performed By: #### Matthew FRANCISCO UMICRO ####[facility] Ntfcwdexfs1238[address] [place], [place] [address]Dr. Tadeo Smyth Ketones Ql (U) Negative Normal NEGATIVE [facility] Comment on above: Performed By: #### SANDRO MERCHANTRO ####[facility] Ovcouqsunz7280 [place] [address]Dr. Tadeo Smyth LEUKOCYTES Negative Normal NEGATIVE [facility] Comment on above: Performed By: #### SANDRO MERCHANTRO ####[facility] Bcsjphsniq3746 [place] [address]Dr. Tadeo Smyth Nitrite Ql (U) Negative Normal NEGATIVE [facility] Comment on above: Performed By: #### SANDRO MERCHANTRO ####[facility] Bytbdosjcq6098[address] [place], [place] [address]Dr. Tadeo Smyth pH (U) 6.5 [pH] Normal 5-9 [facility] Comment on above: Performed By: #### SANDRO MERCHANTRO ####[facility] Fxcavdcmby3869[address] [place], [place] [address]Dr. Tadeo Smyth SPEC GRAVITY 1.020 Normal 1.005-<=1.0 25 [facility] Comment on above: Performed By: #### Matthew FRANCISCO CHINEDURO ####[facility] Bhxihqayti7923[address] [place], [place] [address]Dr. Tadeo Smyth UA PROTEIN Negative Normal NEGATIVE/ TRACE [facility] Comment on above: Performed By: #### SANDRO MERCHANTRO ####[facility] Pjjokitbbn424[address] [place], [place] [address]Dr. Tadeo Smyth UR MICRO IND INDICATED Normal [facility] Comment on above: Performed By: #### KAROL MERCHANT ####[facility] Pqihrafktz3[address] [place], [place] [address]Dr. Tadeo Smyth Urobilinogen Qn (U) 0.2 {Benito'U}/dL Normal 0.2 - 1. 0 [facility] Comment on above: Performed By: #### SANDRO MERCHANTRO ####[facility] Jezctdcupo0[address] [place], [place] [address]Dr. Tadeo Smyth LIPASEon 09-14-2022 Lipase [Catalytic activity/Vol] 117.0 U/L Normal 73.0-393.0 [facility] Comment on above: Performed By: #### H STROPN, CMP, LIPA ####[facility] Utupxzcorq0400 [place] [address]Dr. Tadeo Smyth PROF 14(COMP METB)on 023 Albumin [Mass/Vol] 3.5 g/dL Normal 3.4-5.0 [facility] Comment on above: Performed By: #### H STROPN, CMP, LIPA ####[facility] Pojyhvidgl7326 [place] [address]Dr. Tadeo Smyth Albumin/Globulin [Mass ratio] 0.8 {ratio} Normal [facility] Comment on above: Performed By: #### H STROPN, CMP, LIPA ####[facility] Qhgjnhdkep6065 [place] [address]Dr. Tadeo Smyth ALP [Catalytic activity/Vol] 180 U/L Critically high 46-116 [facility] Comment on above: Performed By: #### H STROPN, CMP, LIPA ####[facility] Bpfpqgmswj2891 [place] [address]Dr. Tadeo Smyth ALT [Catalytic activity/Vol] 25 U/L Normal 14-59 [facility] Comment on above: Performed By: #### H STROPN, CMP, LIPA ####[facility] Ivzpkqfqfe9087 [place] [address]Dr. Tadeo Smyth Anion gap [Moles/Vol] 14.4 mmol/L Normal [facility] Comment on above: Performed By: #### H STROPN, CMP, LIPA ####[facility] Ijmyijrgud4530 [place] [address]Dr. Tadeo Smyth AST [Catalytic activity/Vol] 14 U/L Critically low 15-37 [facility] Comment on above: Performed By: #### H STROPN, CMP, LIPA ####[facility] Vploerqgnr2103 [place] [address]Dr. Tadeo Smyth Bilirubin [Mass/Vol] 0.2 mg/dL Normal 0.2-1.0 [facility] Comment on above: Performed By: #### H STROPN, CMP, LIPA ####[facility] Tjffehrzjc9816 [place] [id number]. Tadeo Smyth Calcium [Mass/Vol] 9.4 mg/dL Normal 8.5-10.1 [facility] Comment on above: Performed By: #### H STROPN, CMP, LIPA ####[facility] Lqgksuilzv4056 [place] [address]Dr. Tadeo Smyth Chloride [Moles/Vol] 107 mmol/L Normal 98-107 [facility] Comment on above: Performed By: #### H STROPN, CMP, LIPA ####[facility] Xnmwxznnop6582 [place] [address]Dr. Tadeo Smyth CO2 [Moles/Vol] 23.9 mmol/L Normal 21.0-32.0 [facility] Comment on above: Performed By: #### H STROPN, CMP, LIPA ####[facility] Wqglantmpr0234 [place] [address]Dr. Tadeo Smyth Creatinine [Mass/Vol] 0.91 mg/dL Normal 0.55-1.02 [facility] Comment on above: Performed By: #### H STROPN, CMP, LIPA ####[facility] Ookzoipnse5925 [place] [address]Dr. Tadeo Smyth EGFR-AF KENYAN >60 Normal >=60 [facility] [facility] Comment on above: Performed By: #### H STROPN, CMP, LIPA ####[facility] [address]ahgcsuh[address] [place] [address]Dr. Tadeo Smyth EGFR-NON AF KENYAN >60 Normal >=60 [facility] Comment on above: Performed By: #### H STROPN, CMP, LIPA ####[facility] Bbfomvvcde18[address] [place] [address]Dr. Tadeo Smyth Globulin (S) [Mass/Vol] 4.2 g/dL Normal [facility] Comment on above: Performed By: #### H STROPN, CMP, LIPA ####[facility] Ohcogwxsxw07[address] [place] [address]Dr. Tadeo Smyth Glucose [Mass/Vol] 101 mg/dL Normal 74-106 [facility] Comment on above: Performed By: #### H STROPN, CMP, LIPA ####[facility] Kskacgblet54[address] [place] [address]Dr. Tadeo Smyth Potassium [Moles/Vol] 3.3 mmol/L Critically low 3.5-5.1 [facility] Comment on above: Performed By: #### H STROPN, CMP, LIPA ####[facility] Qbpshrzpga9144 [place] [address]Dr. Tadeo Smyth Protein [Mass/Vol] 7.7 g/dL Normal 6.4-8.2 [facility] Comment on above: Performed By: #### H STROPN, CMP, LIPA ####[facility] Wllsxhzsdp7038 [place] [address]Dr. Tadeo Smyth Sodium [Moles/Vol] 142 mmol/L Normal 136-145 [facility] Comment on above: Performed By: #### H STROPN, CMP, LIPA ####[facility] Delijoqpay5[address] [place] [address]Dr. Tadeo Smyth Urea nitrogen [Mass/Vol] 17.0 mg/dL Normal 7.0-18.0 [facility] Comment on above: Performed By: #### H STROPN, CMP, LIPA ####[facility] Dzdxrvwpvi9[address] [place] [address]Dr. Tadeo Smyth Urea nitrogen/Creatinine [Mass ratio] 18.7 mg/mg Normal [facility] Comment on above: Performed By: #### H STROPN, CMP, LIPA ####[facility] Oohbbbqpza[address] [place] [address]Dr. Tadeo Smyth TROPONIN, HIGH SENSITIVITYon 09-14-2022 HSTROP 46.6 pg/mL Normal 4.0-51.3 [facility] Comment on above: Result Comment: CUT- OFF POINTS HAVE BEEN ESTABLISHED BASED ON THE FOURTH UNIVERSAL DEFINITIONS OF MYOCARDIALINFARCTION. THE UPPER REFERENCE LIMIT (URL) OF TROPONIN, DEFINED THE 99TH PERCENTILE OFcTnI DISTRIBUTION IN A REFERENCE POPULATION, HAS BEEN CONFIRMED THE DECISION THRESHOLDFOR CA DIAGNOSIS. Performed By: #### H STROPN, CMP, LIPA ####[facility] Ybkqywgcmq54[address] [place] [address]Dr. Tadeo Smyth URINE MICROSCOPIC ONLYon BACTERIA NONE SEEN Normal NONE SEEN [facility] Comment on above: Performed By: #### Matthew FRANCISCO UMICRO ####[facility] Wduewawcdx37[address] [place] [address]Dr. Tadeo Smyth Bacteria identified Cx Nom (U) NOT INDICATED Normal [facility] Comment on above: Performed By: #### Matthew FRANCISCO UMICRO ####[facility] Qtorvfgdow[address] [place], [place] [address]Dr. Tadeo Smyth CAST NONE SEEN Normal NONE SEEN [facility] Comment on above: Performed By: #### Matthew FRANCISCO UMICRO ####[facility] Hmtkxzszsn8[address] [place], [place] [address]Dr. Tadeo Smyth Crystals LM Nom (Urine sed) NONE SEEN Normal NONE SEEN [facility] Comment on above: Performed By: #### Matthew FRANCISCO UMICRO ####[facility] Dywjshjjth67[address] [place], [place] [address]Dr. Tadeo Smyth Epithelial cells LM Ql (Urine sed) FEW Abnormal NONE SEEN /RARE [facility] Comment on above: Performed By: #### Matthew FRANCISCO UMICRO ####[facility] Jdcnefhflb24[address] [place], [place] [address]Dr. Tadeo Smyth MUCOUS MODERATE Abnormal NONE SEEN [facility] Comment on above: Performed By: #### Matthew FRANCISCO UMICRO ####[facility] Uqaoszpzgt88[address] [place], [place] [address]Dr. Tadeo Smyth RBC 0-2 Normal 0-2 [facility] Comment on above: Performed By: #### Matthew FRANCISCO UMICRO ####[facility] Ozlwpkoadj14[address] [place], [place] [address]Dr. Tadeo Smyth WBC NONE SEEN Normal NONE SEEN [facility] Comment on above: Performed By: #### Matthew FRANCISCO UMICRO ####[facility] Kmvamgnxqe8[address] [place], [place] [address]Dr. Tadeo Smyth XR ABD FLAT UP_PA Kasey 09-14 XR ABD FLAT UP_PA CH Normal [facility] VC COMP CONSULTATIONon 09-06 VC COMP CONSULTATION Normal [facility] VC VENOUS REFLUX MACARIO LMTon 0 09-06-2022 VC VENOUS REFLUX MACARIO LMT Normal [facility] XR KUB 1 VIEWon 08-18-2022 XR KUB 1 VIEW Normal The [facility] US RUBENS DOP LEG RTon 08-11-20 22 US RUBENS DOP LEG RT Normal The [facility] AMYLASEon 08-08-2022 Amylase [Catalytic activity/Vol] 64 U/L Normal 25-115 [facility] Comment on above: Performed By: #### C MP, VIJI, LIPA, CMADM ####[facility] Xwljeqssyn[address] [place] [address]Dr. Tadeo Smyth CARDIAC NORA ADMITon 022 CK [Catalytic activity/Vol] 127 U/L Normal 26-192 [facility] Comment on above: Performed By: #### C MP, VIJI, LIPA, CMADM ####[facility] Yhvycwivjd8398 [place] [address]Dr. Tadeo Smyth CK.MB [Mass/Vol] 1.71 ng/mL Normal <=3.60 [facility] Comment on above: Performed By: #### C MP, VIJI, LIPA, CMADM ####[facility] Unckopduyn0384 [place] [address]Dr. Tadeo Smyth HSTROP 36.7 pg/mL Normal 4.0-51.3 [facility] Comment on above: Result Comment: CUT- OFF POINTS HAVE BEEN ESTABLISHED BASED ON THE FOURTH UNIVERSAL DEFINITIONS OF MYOCARDIALINFARCTION. THE UPPER REFERENCE LIMIT (URL) OF TROPONIN, DEFINED THE 99TH PERCENTILE OFcTnI DISTRIBUTION IN A REFERENCE POPULATION, HAS BEEN CONFIRMED THE DECISION THRESHOLDFOR CA DIAGNOSIS. Performed By: #### C MP, VIJI, LIPA, CMADM ####[facility] Dxckjasxmy72[address] [place] [address]Dr. Tadeo Smyth AAKASH 23 ng/mL Normal 9-82 [facility] Comment on above: Performed By: #### C MP, VIJI, LIPA, CMADM ####[facility] Isaluczejh1185 [place] [address]Dr. Tadeo Haja CBC AUTO DIFFon 08-08-2022 BASO # 0.0 103/ul Normal 0.0-0.1 [facility] Comment on above: Performed By: #### C BC ####[facility] Yjysphvwah[address] [place], [place] [address]Dr. Tadeo Smyth Basophils/100 WBC (Bld) 0.4 % Normal 0.2-2.0 [facility] Comment on above: Performed By: #### C BC ####[facility] Xyxvanjizk12[address] [place], [place] [address]Dr. Tadeo mSyth EO # 0.1 103/ul Normal 0.0-0.7 [facility] Comment on above: Performed By: #### C BC ####[facility] Lzndakgbdm5[address] [place], [place] [address]Dr. Tadeo Smyth Eosinophils/100 WBC (Bld) 1.5 % Normal 0.9-7.0 [facility] Comment on above: Performed By: #### C BC ####[facility] Hbqilyhgyx2404[address] [place], [place] [address]Dr. Tadeo Smyth Erythrocyte distribution width (RBC) [Ratio] 13.5 % Normal 11.0-15.0 [facility] Comment on above: Performed By: #### C BC ####[facility] Jzxxwasspl9[address] [place], [place] [address]Dr. Tadeo Smyth Hematocrit (Bld) [Volume fraction] 37.0 % Normal 36.0-48.0 [facility] Comment on above: Performed By: #### C BC ####[facility] Vvxcfuuinx8904[address] [place], [place] [address]Dr. Tadeo Smyth Hemoglobin (Bld) [Mass/Vol] 12.0 g/dL Normal 12.0-16.0 [facility] Comment on above: Performed By: #### C BC ####[facility] Eywxywaijk6894[address] [place], [place] [address]Dr. Tadeo Smyth IG # 0.02 10e3/ul Normal 0.00-0.03 [facility] Comment on above: Performed By: #### C BC ####[facility] Kinhmucptv0701 [place] [address]DrNeo Tadeo Smyth IG % 0.3 % Normal 0.0-0.5 [facility] Comment on above: Performed By: #### C BC ####[facility] Vnzjenhcgn4117 [place] [address]DrNeo Tadeo Haja LYMPH # 2.0 103/ul Normal 1.2-3.8 [facility] Comment on above: Performed By: #### C BC ####[facility] Geguqwntfo49[address] [place], [place] [address]DrNeo Tadeo Haja Lymphocytes/100 WBC (Bld) 27.9 % Normal 20.5-60.0 [facility] Comment on above: Performed By: #### C BC ####[facility] Hjxzqmsdie6[address] [place], [place] [address]DrNeo Tadeo Haja MANUAL DIFF REQ NO Normal [facility] Comment on above: Performed By: #### C BC ####[facility] Wzflmwepbi[address] [place], [place] [address]DrNeo Tadeo Smyth MCH (RBC) [Entitic mass] 28.9 pg Normal 26.7-34.0 [facility] Comment on above: Performed By: #### C BC ####[facility] Wdeulfdrma6225[address] [place], [place] [address]DrNeo Tadeo Smyth MCHC (RBC) [Mass/Vol] 32.4 g/dL Normal 29.9-35.2 [facility] Comment on above: Performed By: #### C BC ####[facility] Jtrkonijjw4379[address] [place], [place] [address]DrNeo Tadeo Haja MCV (RBC) [Entitic vol] 89.2 fL Normal 81.0-99.0 [facility] Comment on above: Performed By: #### C BC ####[facility] Kointhktdm9417[address] [place], [place] [address]DrNeo Smyth MONO # 0.5 103/ul Normal 0.3-0.8 [facility] Comment on above: Performed By: #### C BC ####[facility] Dmxkxejgqb26[address] [place] [id number]. Tadeo Smyth Monocytes/100 WBC (Bld) 6.7 % Normal 1.7-12.0 [facility] Comment on above: Performed By: #### C BC ####[facility] Jgfgwxjhbt7383 [place] [id number]. Tadeo Smyth NEUT # 4.5 103/ul Normal 1.4-6.5 [facility] Comment on above: Performed By: #### C BC ####[facility] Domcyaqdhr2208 [place] [id number]. Tadeo Smyth Neutrophils/100 WBC (Bld) 63.2 % Normal 43.0-75.0 [facility] Comment on above: Performed By: #### C BC ####[facility] Iawhcxzqsv3481 [place] [id number]. Tadeo Smyth Platelet mean volume (Bld) [Entitic vol] 9.0 fL Critically low 9.5-13.5 [facility] Comment on above: Performed By: #### C BC ####[facility] Mkjoumixfy9184 [place] [id number]. Tadeo Smyth PLT 382 103/ul Normal 150-450 [facility] Comment on above: Performed By: #### C BC ####[facility] Epvdcurccr3394 [place] [id number]. Tadeo Smyth RBC 4.15 106/ul Critically low 4.20-5.40 The [facility] Comment on above: Performed By: #### C BC ####[facility] Deegipdjkm2994 [place] [id number]. Tadeo Smyth WBC 7.1 103/ul Normal 4.0-11.0 [facility] Comment on above: Performed By: #### C BC ####[facility] Tqsiewztvh1411 [place] [id number]. Tadeo Smyth CT ABD/PELV W CONon 08-08-[address] ABD/PELV W CON Normal The [facility] ER URINE PROFILEon 2 Bilirubin Ql (U) Negative Normal NEGATIVE [facility] Comment on above: Performed By: #### KAROL MERCHANT ####[facility] Hpcitnomll99[address] [place], [place] [address]Dr. Tadeo Smyth Clarity (U) CLEAR Normal CLEAR [facility] Comment on above: Performed By: #### SANDRO MERCHANTRO ####[facility] Iehebyoprx[address] [place], [place] [address]Dr. Tadeo Smyth Color (U) YELLOW Normal YELLOW [facility] Comment on above: Performed By: #### KAROL MERCHANT ####[facility] Nxepmiyghq5737[address] [place], [place] [address]Dr. Tadeo CAMARGOD A micrscopic examina tion will be performed if indicated. Normal [facility] Comment on above: Performed By: #### KAROL MERCHANT ####[facility] Pltcyniqkq8835[address] [place], [place] [address]Dr. Tadeo Smyth Glucose Ql (U) Negative Normal NEGATIVE [facility] Comment on above: Performed By: #### SANDRO MERCHANTRO ####[facility] Mrsdmgbdhy1959[address] [place], [place] [address]Dr. Tadeo Smyth Hemoglobin Ql (U) TRACE-LYSED Abnormal NEGATIVE [facility] Comment on above: Performed By: #### SANDRO MERCHANTRO ####[facility] Wrqgfbhccg[address] [place], [place] [address]Dr. Tadeo Smtyh Ketones Ql (U) TRACE Abnormal NEGATIVE [facility] Comment on above: Performed By: #### SANDRO MERCHANTRO ####[facility] Ackbxsmxct9183[address] [place], [place] [address]Dr. Tadeo Smyth LEUKOCYTES Negative Normal NEGATIVE [facility] Comment on above: Performed By: #### SANDRO MERCHANTRO ####[facility] Etrcodafna8[address] [place], [place] [address]Dr. Tadeo Smyth Nitrite Ql (U) Negative Normal NEGATIVE [facility] Comment on above: Performed By: #### SANDRO MERCHANTRO ####[facility] Lcvwsmynsy0372 [place] [address]Dr. Tadeo Smyth pH (U) 6.0 [pH] Normal 5-9 [facility] Comment on above: Performed By: #### SANDRO MERCHANTRO ####[facility] Jefzynvvlu4155 [place] [address]Dr. Tadeo Smyth SPEC GRAVITY >=1.030 Abnormal 1.005-<=1.0 25 [facility] Comment on above: Performed By: #### SANDRO MERCHANTRO ####[facility] Hptscbhpcs0707 [place] [address]Dr. Tadeo Smyth UA PROTEIN TRACE Normal NEGATIVE/ TRACE [facility] Comment on above: Performed By: #### SANDRO MERCHANTRO ####[facility] Flrweifumu11[address] [place], [place] [address]Dr. Tadeo Smyth UR MICRO IND INDICATED Normal [facility] Comment on above: Performed By: #### SANDRO MERCHANTRO ####[facility] Haylgwsixy3312 [place] [address]Dr. Tadeo Smyth Urobilinogen Qn (U) 0.2 {Benito'U}/dL Normal 0.2 - 1. 0 [facility] Comment on above: Performed By: #### Matthew FRANCISCO [facility] ####[facility] Cdnezgpdbc8843 [place] [address]Dr. Tadeo Smyth LACTATE/LACTIC ACIDon 2021 Lactate [Moles/Vol] 1.3 mmol/L Normal 0.4-1.9 [facility] Comment on above: Performed By: #### L ACT ####[facility] Ezefofvjef1147[address] [place], [place] [address]Dr. Tadeo Smyth LIPASEon 08-08-2022 Lipase [Catalytic activity/Vol] 120.0 U/L Normal 73.0-393.0 [facility] Comment on above: Performed By: #### C MP, VIJI, LIPA, CMADM ####[facility] Rgvupcepsq3783 [place] [address]Dr. Tadeo Smyth PROF 14(COMP METB)on 022 Albumin [Mass/Vol] 3.8 g/dL Normal 3.4-5.0 [facility] Comment on above: Performed By: #### C MP, VIJI, LIPA, CMADM ####[facility] Ltlaiigbjn7233 [place] [address]Dr. Tadeo Smyth Albumin/Globulin [Mass ratio] 1.1 {ratio} Normal [facility] Comment on above: Performed By: #### C MP, VIJI, LIPA, CMADM ####[facility] Msedhhcgzm4485 [place] [address]Dr. Tadeo Smyth ALP [Catalytic activity/Vol] 145 U/L Critically high 46-116 [facility] Comment on above: Performed By: #### C MP, VIJI, LIPA, CMADM ####[facility] Dnlylordgu7346[address] [place], [place] [address]Dr. Tadeo Smyth ALT [Catalytic activity/Vol] 30 U/L Normal 14-59 [facility] Comment on above: Performed By: #### C MP, VIJI, LIPA, CMADM ####[facility] Qnoryznsgr116[address] [place], [place] [address]Dr. Tadeo Smyth Anion gap [Moles/Vol] 11.5 mmol/L Normal [facility] Comment on above: Performed By: #### C MP, VIJI, LIPA, CMADM ####[facility] Zlgnnbjajm6360 [place] [address]Dr. Tadeo Smyth AST [Catalytic activity/Vol] 17 U/L Normal 15-37 [facility] Comment on above: Performed By: #### C MP, VIJI, LIPA, CMADM ####[facility] Cwfckoiwlb[address] [place], [place] [address]Dr. Tadeo Smyth Bilirubin [Mass/Vol] 0.1 mg/dL Critically low 0.2-1.0 [facility] Comment on above: Performed By: #### C MP, VIJI, LIPA, CMADM ####[facility] Wfxtoypnmo[address] [place], [place] [address]Dr. Tadeo Smyth Calcium [Mass/Vol] 8.9 mg/dL Normal 8.5-10.1 [facility] Comment on above: Performed By: #### C MP, VIJI, LIPA, CMADM ####[facility] Ppoqnbfqxn0040 [place] [address]Dr. Tadeo Smyth Chloride [Moles/Vol] 104 mmol/L Normal 98-107 [facility] Comment on above: Performed By: #### C MP, VIJI, LIPA, CMADM ####[facility] Pqakdjhmpw2843 [place] [address]Dr. Tadeo Smyth CO2 [Moles/Vol] 27.2 mmol/L Normal 21.0-32.0 [facility] Comment on above: Performed By: #### C MP, VIJI, LIPA, CMADM ####[facility] Hugsayeaoe0750 [place] [address]Dr. Tadeo Smyth Creatinine [Mass/Vol] 0.90 mg/dL Normal 0.55-1.02 [facility] Comment on above: Performed By: #### C MP, VIJI, LIPA, CMADM ####[facility] Wxhndqqwhw0675 [place] [address]Dr. Tadeo Smyth EGFR-AF KENYAN >60 Normal >=60 [facility] Comment on above: Performed By: #### C MP, VIJI, LIPA, CMADM ####[facility] Xfwmsgtqxc1089 [place] [address]Dr. Tadeo Smyth EGFR-NON AF KENYAN >60 Normal >=60 [facility] Comment on above: Performed By: #### C MP, VIJI, LIPA, CMADM ####[facility] Wnweleamlb0363 [place] [address]Dr. Tadeo Smyth Globulin (S) [Mass/Vol] 3.5 g/dL Normal [facility] Comment on above: Performed By: #### C MP, VIJI, LIPA, CMADM ####[facility] Hybfzcbdbz5037 [place] [address]Dr. Tadeo Smyth Glucose [Mass/Vol] 98 mg/dL Normal 74-106 [facility] Comment on above: Performed By: #### C MP, VIJI, LIPA, CMADM ####[facility] Ftavxicbzr8220 [place] [address]Dr. Tadeo Smyth Potassium [Moles/Vol] 3.7 mmol/L Normal 3.5-5.1 [facility] Comment on above: Performed By: #### C MP, VIJI, LIPA, CMADM ####[facility] Jadglcmeut1331 [place] [address]Dr. Tadeo Smyth Protein [Mass/Vol] 7.3 g/dL Normal 6.4-8.2 [facility] Comment on above: Performed By: #### C MP, VIJI, LIPA, CMADM ####[facility] Olumipgstt5386 [place] [address]Dr. Tadeo Smyth Sodium [Moles/Vol] 139 mmol/L Normal 136-145 [facility] Comment on above: Performed By: #### C MP, VIJI, LIPA, CMADM ####[facility] Ymegyaicxk0258 [place] [address]Dr. Tadeo Smyth Urea nitrogen [Mass/Vol] 25.0 mg/dL Critically high 7.0-18.0 [facility] Comment on above: Performed By: #### C MP, VIJI, LIPA, CMADM ####[facility] Ruoupnfzat4174 [place] [address]Dr. Tadeo Smyth Urea nitrogen/Creatinine [Mass ratio] 27.8 mg/mg Normal [facility] Comment on above: Performed By: #### C MP, VIJI, LIPA, CMADM ####[facility] Fzylacyvxt6787 [place] [address]Dr. Tadeo Smyth URINE MICROSCOPIC ONLYon BACTERIA NONE SEEN Normal NONE SEEN [facility] Comment on above: Performed By: #### KAROL MERCHANT ####[facility] Flrxwqerhe7506 [place] [address]Dr. Tadeo Smyth Bacteria identified Cx Nom (U) NOT INDICATED Normal [facility] Comment on above: Performed By: #### SANDRO MERCHANTRO ####[facility] Opmzmlzphk3154 [place] [address]Dr. Tadeo Smyth CAST NONE SEEN Normal NONE SEEN [facility] Comment on above: Performed By: #### SANDRO MERCHANTRO ####[facility] Eoazcxdoua1149 [place] [address]Dr. Tadeo Smyth Crystals LM Nom (Urine sed) NONE SEEN Normal NONE SEEN [facility] Comment on above: Performed By: #### SANDRO MERCHANTRO ####[facility] Tzrjanozwq3452 [place] [address]Dr. Tadeo Smyth Epithelial cells LM Ql (Urine sed) FEW Abnormal NONE SEEN /RARE [facility] Comment on above: Performed By: #### SANDRO MERCHANTRO ####[facility] Ochnwrijmy3633 [place] [address]Dr. Margotnicole Smyth MUCOUS NONE SEEN Normal NONE SEEN [facility] Comment on above: Performed By: #### SANDRO MERCHANTRO ####[facility] Idzosjvmta[address] [place], [place] [address]Dr. Tadeo Smyth RBC 2-5 Abnormal 0-2 [facility] Comment on above: Performed By: #### SANDRO MERCHANTRO ####[facility] Xwiiiliynz8052 [place] [address]Dr. Tadeo Smyth WBC NONE SEEN Normal NONE SEEN [facility] Comment on above: Performed By: #### SANDRO MERCHANTRO ####[facility] Okymqgctkm6269 [place] [address]Dr. Tadeo Smyth AMYLASEon 07-21-2022 Amylase [Catalytic activity/Vol] 49 U/L Normal 25-115 [facility] Comment on above: Performed By: #### L IPA, VIJI, CMP ####[facility] Kqotvignoq7961 [place] [address]Dr. Margotnicole Haja CBC AUTO DIFFon 07-21-2022 BASO # 0.0 103/ul Normal 0.0-0.1 [facility] Comment on above: Performed By: #### C BC ####[facility] Fqrkizwwmq3257 [place] [id number]. Tadeo Smyth Basophils/100 WBC (Bld) 0.6 % Normal 0.2-2.0 [facility] Comment on above: Performed By: #### C BC ####[facility] Ikjdzqvtsp4053 [place] [id number]. Tadeo Smyth EO # 0.2 103/ul Normal 0.0-0.7 [facility] Comment on above: Performed By: #### C BC ####[facility] Gmsbwrjiaw27[address] [place], [place] [address]Dr. Tadeo Smyth Eosinophils/100 WBC (Bld) 3.1 % Normal 0.9-7.0 [facility] Comment on above: Performed By: #### C BC ####[facility] Qjybpahdji85[address] [place], [place] [address]Dr. Tadeo Smyth Erythrocyte distribution width (RBC) [Ratio] 13.2 % Normal 11.0-15.0 [facility] Comment on above: Performed By: #### C BC ####[facility] Nkemuvczox299[address] [place], [place] [address]Dr. Tadeo Smyth Hematocrit (Bld) [Volume fraction] 35.7 % Critically low 36.0-48.0 [facility] Comment on above: Performed By: #### C BC ####[facility] [address]auzgfwo[address] [place], [place] [id number]. Tadeo Smyth Hemoglobin (Bld) [Mass/Vol] 11.6 g/dL Critically low 12.0-16.0 [facility] Comment on above: Performed By: #### C BC ####[facility] Gznfmemtvt01[address] [place], [place] [address]Dr. Tadeo Smyth IG # 0.01 10e3/ul Normal 0.00-0.03 [facility] Comment on above: Performed By: #### C BC ####[facility] Gzkvbeodot8[address] [place], [place] [address]Dr. Tadeo Smyth IG % 0.2 % Normal 0.0-0.5 [facility] Comment on above: Performed By: #### C BC ####[facility] Dlpfuttsmx6348 [place] [id number]. Tadeo Smyth LYMPH # 1.9 103/ul Normal 1.2-3.8 [facility] Comment on above: Performed By: #### C BC ####[facility] Cxlqshkwde8052 [place], [place] [address]Hz. aTdeo Smyth Lymphocytes/100 WBC (Bld) 34.8 % Normal 20.5-60.0 [facility] Comment on above: Performed By: #### C BC ####[facility] Vpyjnqiuqf4850 [place] [phone]. Tadeo Smyth MANUAL DIFF REQ NO Normal [facility] Comment on above: Performed By: #### C BC ####[facility] Ygljbowwdf9341 [place] [phone]. Tadeo Smyth MCH (RBC) [Entitic mass] 29.1 pg Normal 26.7-34.0 [facility] Comment on above: Performed By: #### C BC ####[facility] Xjpncfesgj3456 [place] [phone]. Tadeo Smyth MCHC (RBC) [Mass/Vol] 32.5 g/dL Normal 29.9-35.2 [facility] Comment on above: Performed By: #### C BC ####[facility] Kgpsyhgvjx0839 [place] [id number]. Tadeo Smyth MCV (RBC) [Entitic vol] 89.7 fL Normal 81.0-99.0 [facility] Comment on above: Performed By: #### C BC ####[facility] Qpsuwmppnb0374 [place] [id number]. Tadeo Smyth MONO # 0.3 103/ul Normal 0.3-0.8 [facility] Comment on above: Performed By: #### C BC ####[facility] Sklxhbygdt0750 [place] [phone]. Tadeo Haja Monocytes/100 WBC (Bld) 6.1 % Normal 1.7-12.0 [facility] Comment on above: Performed By: #### C BC ####[facility] Dqivimuhxh9885 [place], [place] [address]Qs. Tadeo Smyth NEUT # 3.0 103/ul Normal 1.4-6.5 [facility] Comment on above: Performed By: #### C BC ####[facility] Qpdwwwlzud1068 [place], [place] [address]Ut. Tadeo Smyth Neutrophils/100 WBC (Bld) 55.2 % Normal 43.0-75.0 [facility] Comment on above: Performed By: #### C BC ####[facility] P[address]qav[address] [place] [phone]. Tadeo Smyth Platelet mean volume (Bld) [Entitic vol] 9.0 fL Critically low 9.5-13.5 [facility] Comment on above: Performed By: #### C BC ####[facility] Ywunzdisef9[address] [place] [id number]. Tadeo Smyth PLT 358 103/ul Normal 150-450 [facility] Comment on above: Performed By: #### C BC ####[facility] Mnngsjpqah9359 [place] [id number]. Tadeo Smyth RBC 3.98 106/ul Critically low 4.20-5.40 [facility] Comment on above: Performed By: #### C BC ####[facility] Ouoqepcurr4755 [place] [id number]. Tadeo Smyth WBC 5.4 103/ul Normal 4.0-11.0 [facility] Comment on above: Performed By: #### C BC ####[facility] Oebvkgsafg4357 [place] [id number]. Tadeo Smyth LIPASEon 07-21-2022 Lipase [Catalytic activity/Vol] 54.0 U/L Critically low 73.0-393.0 [facility] Comment on above: Performed By: #### L ISABEL, VIJI, CMP ####[facility] Edgnfuchaq7226 [place] [id number]. Tadeo Smyth PROF 14(COMP METB)on 022 Albumin [Mass/Vol] 3.5 g/dL Normal 3.4-5.0 [facility] Comment on above: Performed By: #### L IPA VIJI, CMP ####[facility] Lfkbkbqlat10[address] [place] [address]Dr. Tadeo Smyth Albumin/Globulin [Mass ratio] 0.9 {ratio} Normal [facility] Comment on above: Performed By: #### L IPA VIJI, CMP ####[facility] Xttyfforys[address] [place] [address]Dr. Tadeo Smyth ALP [Catalytic activity/Vol] 127 U/L Critically high 46-116 [facility] Comment on above: Performed By: #### L IPA VIJI, CMP ####[facility] Rlqdpyedvq5526 [place] [address]Dr. Tadeo Smyth ALT [Catalytic activity/Vol] 16 U/L Normal 14-59 [facility] Comment on above: Performed By: #### L IPA VIJI, CMP ####[facility] Zbhnadboyn[address] [place], [place] [address]Dr. Tadeo Smyth Anion gap [Moles/Vol] 10.6 mmol/L Normal [facility] Comment on above: Performed By: #### L ISABEL VIJI, CMP ####[facility] Rarrjqenhe[address] [place], [place] [address]Dr. Tadeo Smyth AST [Catalytic activity/Vol] 16 U/L Normal 15-37 [facility] Comment on above: Performed By: #### L IPA VIJI, CMP ####[facility] Pulbfhgurw7[address] [place], [place] [address]Dr. Tadeo Smyth Bilirubin [Mass/Vol] 0.3 mg/dL Normal 0.2-1.0 [facility] Comment on above: Performed By: #### L IPA VIJI, CMP ####[facility] Cbzlddichj[address] [place], [place] [address]Dr. Tadeo Smyth Calcium [Mass/Vol] 9.1 mg/dL Normal 8.5-10.1 [facility] Comment on above: Performed By: #### L IPA VIJI, CMP ####[facility] Yeewbjtwvn[address] [place], [place] [address]Dr. Tadeo Smyth Chloride [Moles/Vol] 104 mmol/L Normal 98-107 [facility] Comment on above: Performed By: #### L VIJI HALL, CMP ####[facility] Fsdupeijeu0366 [place] [address]Dr. Tadeo Smyth CO2 [Moles/Vol] 28.0 mmol/L Normal 21.0-32.0 [facility] Comment on above: Performed By: #### L VIJI HALL, CMP ####[facility] Lsfynwshis65[address] [place] [address]Dr. Tadeo Smyth Creatinine [Mass/Vol] 0.96 mg/dL Normal 0.55-1.02 [facility] Comment on above: Performed By: #### L VIJI HALL, CMP ####[facility] Knkufleokk[address] [place] [address]Dr. Tadeo Smyth EGFR-AF KENYAN >60 Normal >=60 [facility] Comment on above: Performed By: #### L VIJI HALL, CMP ####[facility] Itscqlrorl5465 [place] [address]Dr. Tadeo Smyth EGFR-NON AF KENYAN >60 Normal >=60 [facility] Comment on above: Performed By: #### L VIJI HALL, CMP ####[facility] Fshvqvxvyf5047 [place] [address]Dr. Tadeo Smyth Globulin (S) [Mass/Vol] 3.8 g/dL Normal [facility] Comment on above: Performed By: #### L VIJI HALL, CMP ####[facility] Hjubtypvad7948 [place] [address]Dr. Tadeo Smyth Glucose [Mass/Vol] 93 mg/dL Normal 74-106 [facility] Comment on above: Performed By: #### L VIJI HALL, CMP ####[facility] Bvozgbevwc1924 [place] [address]Dr. Tadeo Smyth Potassium [Moles/Vol] 3.6 mmol/L Normal 3.5-5.1 [facility] Comment on above: Performed By: #### L VIJI HALL, CMP ####[facility] Foehozange8553 [place] [phone]. Tadeo Smyth Protein [Mass/Vol] 7.3 g/dL Normal 6.4-8.2 [facility] Comment on above: Performed By: #### L VIJI HALL, CMP ####[facility] Pzuygoglyn8726 [place] [address]Dr. Tadeo Smyth Sodium [Moles/Vol] 139 mmol/L Normal 136-145 [facility] Comment on above: Performed By: #### L VIJI HALL, CMP ####[facility] Rkhviqqadr8915 [place] [address]Dr. Tadeo Smyth Urea nitrogen [Mass/Vol] 16.0 mg/dL Normal 7.0-18.0 [facility] Comment on above: Performed By: #### L VIJI HALL, CMP ####[facility] Ahihvvdvle[address] [place], [place] [address]Dr. Tadeo Smyth Urea nitrogen/Creatinine [Mass ratio] 16.7 mg/mg Normal [facility] Comment on above: Performed By: #### L VIJI HALL, CMP ####[facility] Nsrcecnvhl[address] [place], [place] [address]Dr. Tadeo Smyht XR ABD FLAT UP_PA Kasey 07-21 XR ABD FLAT UP_PA CH Normal [facility] CULTURE URINEon 07-10-2022 CULTURE URINE Normal [facility] Comment on above: Performed By: #### U RCX ####[facility] Eebyrljmlu23[address] [place], [place] [address]Dr. Tadeo Haja INSULINon 07-09-2022 Insulin 15.9 uIU/mL Normal 2.6-24.9 [facility] Comment on above: Performed By: #### I NSULIN ####[facility] Tyigfsuhws8616[address] [place], [place] [address]Dr. Tadeo Haja CBC AUTO DIFFon 07-08-2022 BASO # 0.0 103/ul Normal 0.0-0.1 [facility] Comment on above: Performed By: #### C BC ####[facility] Iqjqamcpbx[address] [place], [place] [address]Dr. Tadeo Smyth Basophils/100 WBC (Bld) 0.6 % Normal 0.2-2.0 [facility] Comment on above: Performed By: #### C BC ####[facility] Mzecjmuoos8460 [place] [address]Dr. Tadeo Smyth EO # 0.2 103/ul Normal 0.0-0.7 [facility] Comment on above: Performed By: #### C BC ####[facility] Qnrpyjbjax6[address] [place], [place] [address]Dr. Tadeo Smyth Eosinophils/100 WBC (Bld) 3.4 % Normal 0.9-7.0 [facility] Comment on above: Performed By: #### C BC ####[facility] Wrvdqshpvg14[address] [place], [place] [address]Dr. Tadeo Smyth Erythrocyte distribution width (RBC) [Ratio] 13.1 % Normal 11.0-15.0 [facility] Comment on above: Performed By: #### C BC ####[facility] Gdlleyabvi2[address] [place], [place] [address]Dr. Tadeo Smyth Hematocrit (Bld) [Volume fraction] 42.4 % Normal 36.0-48.0 [facility] Comment on above: Performed By: #### C BC ####[facility] Gmxhzutpin20[address] [place], [place] [address]Dr. Tadeo Smyth Hemoglobin (Bld) [Mass/Vol] 13.7 g/dL Normal 12.0-16.0 [facility] Comment on above: Performed By: #### C BC ####[facility] Pmiwlpudve32[address] [place], [place] [address]Dr. Tadeo Smyth IG # 0.01 10e3/ul Normal 0.00-0.03 [facility] Comment on above: Performed By: #### C BC ####[facility] Udyqnbkimg[address] [place], [place] [address]Dr. Tadeo Smyth IG % 0.2 % Normal 0.0-0.5 [facility] Comment on above: Performed By: #### C BC ####[facility] Jrvufzgsnu2056 [place] [address]Dr. Tadeo Haja LYMPH # 2.1 103/ul Normal 1.2-3.8 [facility] Comment on above: Performed By: #### C BC ####[facility] Qcubfwftwx3975 [place] [address]Dr. Tadeo Haja Lymphocytes/100 WBC (Bld) 41.2 % Normal 20.5-60.0 [facility] Comment on above: Performed By: #### C BC ####[facility] Xsqsgtmdpm022[address] [place] [address]Dr. Margotnicole Smyth MANUAL DIFF REQ NO Normal [facility] Comment on above: Performed By: #### C BC ####[facility] Vudkfgvwob0491 [place] [address]Dr. Tadeo Haja MCH (RBC) [Entitic mass] 28.8 pg Normal 26.7-34.0 [facility] Comment on above: Performed By: #### C BC ####[facility] Fppmtokxdd[address] [place], [place] [address]Dr. Tadeo Haja MCHC (RBC) [Mass/Vol] 32.3 g/dL Normal 29.9-35.2 [facility] Comment on above: Performed By: #### C BC ####[facility] Iakfaiqord95[address] [place], [place] [address]Dr. Margotnicole Smyth MCV (RBC) [Entitic vol] 89.3 fL Normal 81.0-99.0 [facility] Comment on above: Performed By: #### C BC ####[facility] Mmtnbhmndp[address] [place], [place] [address]Dr. Tadeo Haja MONO # 0.4 103/ul Normal 0.3-0.8 [facility] Comment on above: Performed By: #### C BC ####[facility] Qgiepciolh[address] [place], [place] [address]Dr. Margotnicole Smyth Monocytes/100 WBC (Bld) 8.1 % Normal 1.7-12.0 [facility] Comment on above: Performed By: #### C BC ####[facility] Erepvwsqqt6[address] [place], [place] [address]Dr. Tadeo Smyth NEUT # 2.4 103/ul Normal 1.4-6.5 [facility] Comment on above: Performed By: #### C BC ####[facility] Jdqzfmbgez1406 [place] [phone]. Tadeo Smyth Neutrophils/100 WBC (Bld) 46.5 % Normal 43.0-75.0 [facility] Comment on above: Performed By: #### C BC ####[facility] Vizywjcrsx1494 [place] [phone]. Tadeo Smyth Platelet mean volume (Bld) [Entitic vol] 9.3 fL Critically low 9.5-13.5 [facility] Comment on above: Performed By: #### C BC ####[facility] Tliuxvsvlj3503 [place] [address]Dr. Tadeo Smyth PLT 443 103/ul Normal 150-450 [facility] Comment on above: Performed By: #### C BC ####[facility] Hcyklantrp4322 [place] [phone]. Tadeo Smyth RBC 4.75 106/ul Normal 4.20-5.40 [facility] Comment on above: Performed By: #### C BC ####[facility] Relbrndgbj4851 [place] [address]Dr. Tadeo Smyth WBC 5.1 103/ul Normal 4.0-11.0 [facility] Comment on above: Performed By: #### C BC ####[facility] Ztkwqizafg6122 [place] [phone]. Tadeo Smyth FREE THYROXINE INDEX T7on FTI 2.91 Normal 1.30-4.50 [facility] Comment on above: Performed By: #### T 7, LIPID, TSH, CMP ####[facility] Drvquvijjq6564 [place] [phone]. Tadeo Smyth T3U 31.0 % Normal 30.0-39.0 [facility] Comment on above: Performed By: #### T 7, LIPID, TSH, CMP ####[facility] Zpirtnmleg2659 [place] [phone]. Tadeo Smyth T4 [Mass/Vol] 9.40 ug/dL Normal 4.80-13.90 [facility] Comment on above: Performed By: #### T 7, LIPID, TSH, CMP ####[facility] Kviowoueue7545 [place] [phone]. Tadeo Smyth GLYCOHEMOGLOBIN A1Con 2021 ADA RECOMMENDATION SEE BELOW Normal [facility] Comment on above: Result Comment: ADA RECOMMENDED LIMIT 4.0 - 6.0 ADA THERAPEUTIC TARGET < 7.0 ACTION SUGGESTED > 7.0 Performed By: #### A 1C ####[facility] Xdsriikuwx0157 [place] [phone]. Tadeo Smyth Glucose [Mass/Vol] 120 mg/dL Normal [facility] Comment on above: Performed By: #### A 1C ####[facility] Nttyxjmrrz[address] [place], [place] [address]Dr. Tadeo Smyth HbA1c (Bld) [Mass fraction] 5.8 % Normal 4.5-6.2 [facility] Comment on above: Performed By: #### A 1C ####[facility] Kfnfadjuym1317 [place] [phone]. Tadeo Smyth IRONon 07-08-2022 Iron [Mass/Vol] 59.0 ug/dL Normal 50.0-170.0 [facility] Comment on above: Performed By: #### I KEEGAN ####[facility] Cciyjeazhk1796 [place] [phone]. Tadeo Smyth LIPID PROFILEon 07-08-2022 CHOL-HDL RATIO NORM SEE BELOW Normal [facility] Comment on above: Result Comment: 3.3 - 4.4 LOW RISK 4.4 - 7.1 AVERAGE RISK 7.1 - 11.0 MODERATE RISK >11.0 HIGH RISK Performed By: #### T 7, LIPID, TSH, CMP ####[facility] Aajrbszygz3944 [place] [phone]. Tadeo Smyth Cholesterol [Mass/Vol] 227 mg/dL Critically high <=200 [facility] Comment on above: Performed By: #### T 7, LIPID, TSH, CMP ####[facility] Bwbmdscvbw6348 [place] [phone]. Tadeo Smyth Cholesterol in HDL [Mass/Vol] 67 mg/dL Critically high 40-60 [facility] Comment on above: Performed By: #### T 7, LIPID, TSH, CMP ####[facility] Ciytkdrhee2900 [place] [phone]. Tadeo Smyth Cholesterol in LDL [Mass/Vol] 139.0 mg/dL Normal [facility] Comment on above: Performed By: #### T 7, LIPID, TSH, CMP ####[facility] Yficuavtbm[address] [place], [place] [id number]. Tadeo Smyth Cholesterol.total/Cho lesterol in HDL [Mass ratio] 3.4 {ratio} Normal [facility] Comment on above: Performed By: #### T 7, LIPID, TSH, CMP ####[facility] Xauabobwcp[address] [place], [place] [address]Dr. Tadeo Smyth HDL NORMAL > or = 60 mg/dl - LO W CARDIOVASCULAR RISK <40 mg/dl - HIGH CARDIOVASCULAR RISK Normal [facility] Comment on above: Performed By: #### T 7, LIPID, TSH, CMP ####[facility] Ihowdypfdj59[address] [place], [place] [address]Dr. Tadeo Smyth LDL CALC NORMAL SEE BELOW Normal [facility] Comment on above: Result Comment: <100 mg/dl OPTIMAL 100 - 129 mg/dl NEAR OR ABOVE OPTIMAL 130 - 159 mg/dl BORDERLINE HIGH 160 - 189 mg/dl HIGH >190 mg/dl VERY HIGH Performed By: #### T 7, LIPID, TSH, CMP ####[facility] Tfimwwaltq9637 [place] [phone]. Tadeo Smyth Triglyceride [Mass/Vol] 105 mg/dL Normal <=150 [facility] Comment on above: Performed By: #### T 7, LIPID, TSH, CMP ####[facility] Yhdrpwbozi9277 [place] [phone]. Tadeo Smyth VLDL CALC 21.0 mg/dL Normal [facility] Comment on above: Performed By: #### T 7, LIPID, TSH, CMP ####[facility] Kcgvziqbsz2040 [place] [address]Dr. Tadeo Smyth OCC BLD IMMUNO SCREENon OCCULT BLOOD Negative Normal NEGATIVE [facility] Comment on above: Performed By: #### O BSCRN ####[facility] Ujwhlvxece7381 [place] [address]Dr. Tadeo Smyth PROF 14(COMP METB)on 022 Albumin [Mass/Vol] 3.7 g/dL Normal 3.4-5.0 [facility] Comment on above: Performed By: #### T 7, LIPID, TSH, CMP ####[facility] Ngerczsjvh3578 [place] [address]Dr. Tadeo Smyth Albumin/Globulin [Mass ratio] 0.8 {ratio} Normal [facility] Comment on above: Performed By: #### T 7, LIPID, TSH, CMP ####[facility] Wnwrhrxwed4722 [place] [address]Dr. Tadeo Smyth ALP [Catalytic activity/Vol] 141 U/L Critically high 46-116 [facility] Comment on above: Performed By: #### T 7, LIPID, TSH, CMP ####[facility] Ldnvvdbqhr0448 [place] [address]Dr. Tadeo Smyth ALT [Catalytic activity/Vol] 23 U/L Normal 14-59 [facility] Comment on above: Performed By: #### T 7, LIPID, TSH, CMP ####[facility] Lmtemwjger6788 [place] [address]Dr. Tadeo Smyth Anion gap [Moles/Vol] 9.8 mmol/L Normal [facility] Comment on above: Performed By: #### T 7, LIPID, TSH, CMP ####[facility] Vjfcjiayot9549 [place] [address]Dr. Tadeo Smyth AST [Catalytic activity/Vol] 13 U/L Critically low 15-37 [facility] Comment on above: Performed By: #### T 7, LIPID, TSH, CMP ####[facility] Pystcyskkv7693 [place] [address]Dr. Tadeo Smyth Bilirubin [Mass/Vol] 0.4 mg/dL Normal 0.2-1.0 [facility] Comment on above: Performed By: #### T 7, LIPID, TSH, CMP ####[facility] Pfnonhcpvp9901 [place] [address]Dr. Tadeo Smyth Calcium [Mass/Vol] 10.2 mg/dL Critically high 8.5-10.1 [facility] Comment on above: Performed By: #### T 7, LIPID, TSH, CMP ####[facility] Wefllezdbh[address] [place], [place] [address]Dr. Tadeo Smyth Chloride [Moles/Vol] 101 mmol/L Normal 98-107 [facility] Comment on above: Performed By: #### T 7, LIPID, TSH, CMP ####[facility] Ldidrpdnqm0904[address] [place], [place] [address]Dr. Tadeo Smyth CO2 [Moles/Vol] 32.8 mmol/L Critically high 21.0-32.0 [facility] Comment on above: Performed By: #### T 7, LIPID, TSH, CMP ####[facility] Sayxzdgxwc94[address] [place], [place] [address]Dr. Tadeo Smyth Creatinine [Mass/Vol] 0.92 mg/dL Normal 0.55-1.02 [facility] Comment on above: Performed By: #### T 7, LIPID, TSH, CMP ####[facility] Qvzidqumfr[address] [place], [place] [address]Dr. Tadeo Smyth EGFR-AF KENYAN >60 Normal >=60 [facility] Comment on above: Performed By: #### T 7, LIPID, TSH, CMP ####[facility] Uofnnlopoc0073[address] [place], [place] [address]Dr. Tadeo Smyth EGFR-NON AF KENYAN >60 Normal >=60 [facility] Comment on above: Performed By: #### T 7, LIPID, TSH, CMP ####[facility] Hibsxkence[address] [place], [place] [address]Dr. Tadeo Smyth Globulin (S) [Mass/Vol] 4.8 g/dL Normal [facility] Comment on above: Performed By: #### T 7, LIPID, TSH, CMP ####[facility] Rgycorhclj2709 [place] [address]Dr. Tadeo Smyth Glucose [Mass/Vol] 114 mg/dL Critically high 74-106 [facility] Comment on above: Performed By: #### T 7, LIPID, TSH, CMP ####[facility] Qplttamwzc4749 [place] [address]Dr. Tadeo Smyth Potassium [Moles/Vol] 3.6 mmol/L Normal 3.5-5.1 [facility] Comment on above: Performed By: #### T 7, LIPID, TSH, CMP ####[facility] Bgcdeejhab97[address] [place], [place] [address]Dr. Tadeo Smyth Protein [Mass/Vol] 8.5 g/dL Critically high 6.4-8.2 [facility] Comment on above: Performed By: #### T 7, LIPID, TSH, CMP ####[facility] Oesxnylffn7[address] [place], [place] [address]Dr. Tadeo Smyth Sodium [Moles/Vol] 140 mmol/L Normal 136-145 [facility] Comment on above: Performed By: #### T 7, LIPID, TSH, CMP ####[facility] Xnfdmydcwl804[address] [place], [place] [address]Dr. Tadeo Smyth Urea nitrogen [Mass/Vol] 23.0 mg/dL Critically high 7.0-18.0 [facility] Comment on above: Performed By: #### T 7, LIPID, TSH, CMP ####[facility] Zvrdwxtpnf[address] [place], [place] [address]Dr. Tadeo Smyth Urea nitrogen/Creatinine [Mass ratio] 25.0 mg/mg Normal [facility] Comment on above: Performed By: #### T 7, LIPID, TSH, CMP ####[facility] Sffkdtulzl4[address] [place], [place] [address]Dr. Tadeo Smyth TSHon 07-08-2022 TSH 3.748 uIU/mL Critically high 0.358-3.740 [facility] Comment on above: Performed By: #### T 7, LIPID, TSH, CMP ####[facility] Kipgvcqpck2746 [place] [address]Dr. Tadeo Smyth UA RANDOM W/MICROSCOPICon BACTERIA TRACE Abnormal NONE SEEN [facility] Comment on above: Performed By: #### U AMIC ####[facility] Ncpkxoddfn3955 [place] [address]Dr. Tadeo Smyth Bilirubin Ql (U) Negative Normal NEGATIVE [facility] Comment on above: Performed By: #### U AMIC ####[facility] Ndgdfcrkyg6977 [place] [address]Dr. Tadeo Smyth CAST NONE SEEN Normal NONE SEEN [facility] Comment on above: Performed By: #### U AMIC ####[facility] Gkkxjtknue[address] [place], [place] [address]Dr. Tadeo Smyth Clarity (U) CLEAR Normal CLEAR [facility] Comment on above: Performed By: #### U AMIC ####[facility] Obkqebevtj8[address] [place], [place] [address]Dr. Tadeo Smyth Color (U) YELLOW Normal YELLOW [facility] Comment on above: Performed By: #### U AMIC ####[facility] Rfvyjsjuuu[address] [place], [place] [address]Dr. Tadeo Smyth Crystals LM Nom (Urine sed) NONE SEEN Normal NONE SEEN [facility] Comment on above: Performed By: #### U AMIC ####[facility] Dfpodtwxyz8025[address] [place], [place] [address]Dr. Tadeo Smyth Epithelial cells LM Ql (Urine sed) FEW Abnormal NONE SEEN /RARE [facility] Comment on above: Performed By: #### U AMIC ####[facility] Nelmybaxoj[address] [place], [place] [address]Dr. Tadeo Smyth Glucose Ql (U) Negative Normal NEGATIVE [facility] Comment on above: Performed By: #### U AMIC ####[facility] Ingmpktiwl4725 [place] [address]Dr. Tadeo Smyth Hemoglobin Ql (U) SMALL Abnormal NEGATIVE [facility] Comment on above: Performed By: #### U AMIC ####[facility] Ltqttfyxkw2658 [place] [address]Dr. Tadeo Smyth Ketones Ql (U) TRACE Abnormal NEGATIVE [facility] Comment on above: Performed By: #### U AMIC ####[facility] Egioizbeai3899 [place] [address]Dr. Tadeo Smyth LEUKOCYTES TRACE Abnormal NEGATIVE [facility] Comment on above: Performed By: #### U AMIC ####[facility] Ghkdjibqvh8678 [place] [address]Dr. Tadeo Smyth MUCOUS NONE SEEN Normal NONE SEEN [facility] Comment on above: Performed By: #### U AMIC ####[facility] Zajgqvczoy2115 [place] [address]Dr. Tadeo Smyth Nitrite Ql (U) Negative Normal NEGATIVE [facility] Comment on above: Performed By: #### U AMIC ####[facility] Gcmzhaywnd9[address] [place], [place] [address]Dr. Tadeo Smyth pH (U) 6.5 [pH] Normal 5-9 [facility] Comment on above: Performed By: #### U AMIC ####[facility] Nkufykxcuf[address] [place], [place] [address]Dr. Tadeo Smyth RBC 5-10 Abnormal 0-2 [facility] Comment on above: Performed By: #### U AMIC ####[facility] Iibjhpzptw0[address] [place], [place] [address]Dr. Tadeo Smyth SPEC GRAVITY 1.020 Normal 1.005-<=1.0 25 [facility] Comment on above: Performed By: #### U AMIC ####[facility] Zwucpvqqnr9606 [place] [address]Dr. Tadeo Smyth UA PROTEIN 30 mg/dl Abnormal NEGATIVE/ TRACE [facility] Comment on above: Performed By: #### U AMIC ####[facility] Aijlhosfwh[address] [place], [place] [address]Dr. Tadeo Smyth Urobilinogen Qn (U) 0.2 {Benito'U}/dL Normal 0.2 - 1. 0 [facility] Comment on above: Performed By: #### U AMIC ####[facility] Rhnjqgynzo2181 [place], [place] [address]Db. Tadeo Smyth WBC 2-5 Abnormal NONE SEEN [facility] Comment on above: Performed By: #### U AMIC ####[facility] Hlzgaiubcy4685 [place], [place] [address]Fr. Tadeo Smyth Covid-19 PCR (CVDTBH)on 06-07 SARS-CoV-2 (COVID-19) RNA CHEN+probe Ql (Unsp spec) Not detected Normal NOT DETECTED [facility] Comment on above: Result Comment: When diagnostic [...] for this test is supported by the Junior Financial Analyst of Health and Human Service's declaration that [...] Performed By: #### C VDTBH ####[facility] Cbftucfglx[address] [place], [place] [id number]. Tadeo Smyth CULTURE URINEon 06-09-2022 CULTURE URINE Normal [facility] Comment on above: Performed By: #### U RCX ####[facility] Jhjqzsrltl9116 [place] [id number]. Tadeo Smyth GI PANEL (PCR)on 06-07-2022 Adenovirus F 40/41 Not detected Normal NOT DETECTED [facility] Comment on above: Performed By: #### G IPANEL ####[facility] Ifcjtcwwhj7940 [place] [id number]. Tadeo Smyth Astrovirus Not detected Normal NOT DETECTED The [facility] Comment on above: Performed By: #### G IPANEL ####[facility] Wkrbtbchhq[address] [place], [place] [address]Dr. Tadeo Smyth C. Diff toxin A/B Not detected Normal NOT DETECTED [facility] Comment on above: Performed By: #### G IPANEL ####[facility] Txvfpjhauc[address] [place], [place] [address]Dr. Tadeo Smyth Campylobacter Not detected Normal NOT DETECTED [facility] Comment on above: Performed By: #### G IPANEL ####[facility] Juulstqncw9[address] [place], [place] [address]Dr. Tadeo Smyth Cryptosporidium Not detected Normal NOT DETECTED [facility] Comment on above: Performed By: #### G IPANEL ####[facility] Lvejozklng026[address] [place], [place] [address]Dr. Tadeo Smyth Cyclos. Cayetanensis Not detected Normal NOT DETECTED [facility] Comment on above: Performed By: #### G IPANEL ####[facility] Lkqixambaa5474[address] [place], [place] [address]Dr. Tadeo Smyth E. Coli O157 Not Applicable Normal Not Applicable [facility] Comment on above: Performed By: #### G IPANEL ####[facility] Yzzsaljlvj1323[address] [place], [place] [address]Dr. Tadeo Smyth E. histolytica Not detected Normal NOT DETECTED [facility] Comment on above: Performed By: #### G IPANEL ####[facility] Dyifqaztld978[address] [place], [place] [address]Dr. Tadeo Smyth EAEC Not detected Normal NOT DETECTED [facility] Comment on above: Performed By: #### G IPANEL ####[facility] Dekoytplss16[address] [place], [place] [address]Dr. Tadeo Smyth EIEC Not detected Normal NOT DETECTED [facility] Comment on above: Performed By: #### G IPANEL ####[facility] Rfddylceml34[address] [place], [place] [address]Dr. nicole Smyth EPEC Not detected Normal NOT DETECTED [facility] Comment on above: Performed By: #### G IPANEL ####[facility] Viljeehpev3812 [place] [id number]. Tadeo Smyth ETEC Not detected Normal NOT DETECTED [facility] Comment on above: Performed By: #### G IPANEL ####[facility] Jprqybrejh6127 [place] [id number]. Tadeo Haja G. Lamblia Not detected Normal NOT DETECTED [facility] Comment on above: Performed By: #### G IPANEL ####[facility] Vpptvcnwmo0307 [place] [address]Dr. Margotnicole Haja GIPANEL CONTROLS PASSED Normal [facility] Comment on above: Performed By: #### G IPANEL ####[facility] Kxkxkczwzs[address] [place], [place] [address]Dr. Tadeo MEZANL ARRON HEADER GI PANEL BACTERIA Normal T [facility] Comment on above: Performed By: #### G IPANEL ####[facility] Nyeprcslqe12[address] [place], [place] [address]Dr. Margotnicole Haja CACERESHD ECOLI GI PANEL DIARRHEAGEN IC E.COLI / SHIGELLA Normal [facility] Comment on above: Performed By: #### G IPANEL ####[facility] Zixncbmgyu726[address] [place], [place] [address]Dr. Margotnicole Haja GIPNLHD INFO SEE BELOW Normal [facility] Comment on above: Result Comment: EAEC - Enteroaggregative E. Coli EPEC- Enteropathogenic E. Coli ETEC- Enterotoxigenic E. Coli lt/st STEC- Shigella-like toxin-producing E. Coli stx1/stx2 EIEC- Shigella/Enteroinvasive E. Coli Performed By: #### G IPANEL ####[facility] Zzrkaoxmug0750 [place] [address]Dr. Yilan Smyth GIPNLHD PARASITES GI PANEL PARASITES Normal [facility] Comment on above: Performed By: #### G IPANEL ####[facility] Auoerlvjzw5240 [place] [address]Dr. Yinicole Smyth GIPNLHD VIRUS GI PANEL VIRUSES Normal [facility] Comment on above: Performed By: #### G IPANEL ####[facility] Xssbqpdqpk8211[address] [place], [place] [address]Dr. Tadeo Smyth Norovirus GI/GII Not detected Normal NOT DETECTED [facility] Comment on above: Performed By: #### G IPANEL ####[facility] Enylvfhoig7849[address] [place], [place] [address]Dr. Tadeo Smyth P. Shigelloides Not detected Normal NOT DETECTED [facility] Comment on above: Performed By: #### G IPANEL ####[facility] Ryxkvtitcg694[address] [place], [place] [address]Dr. Tadeo Smyth Rotavirus A Not detected Normal NOT DETECTED [facility] Comment on above: Performed By: #### G IPANEL ####[facility] Ssfnujbajc669[address] [place], [place] [address]Dr. Tadeo Smyth Salmonella Not detected Normal NOT DETECTED [facility] Comment on above: Performed By: #### G IPANEL ####[facility] Xjqfblvcgr4595[address] [place], [place] [address]Dr. Tadeo Smyth Sapovirus Not detected Normal NOT DETECTED [facility] Comment on above: Performed By: #### G IPANEL ####[facility] Udslkeddlb4985[address] [place], [place] [address]Dr. Tadeo Smyth STEC Not detected Normal NOT DETECTED [facility] Comment on above: Performed By: #### G IPANEL ####[facility] Xkuixseeyg6656[address] [place], [place] [address]Dr. Tadeo Smyth Vibrio Not detected Normal NOT DETECTED [facility] Comment on above: Performed By: #### G IPANEL ####[facility] Ngallorimm4592[address] [place], [place] [address]Dr. Tadeo Smyth Vibrio Cholera Not detected Normal NOT DETECTED [facility] Comment on above: Performed By: #### G IPANEL ####[facility] Zoygqekmjq7999[address] [place], [place] [address]Dr. Tadeo Smyth Y. Enterocolitica Not detected Normal NOT DETECTED [facility] Comment on above: Performed By: #### G IPANEL ####[facility] Mvrdxyocdp3716[address] [place], [place] [address]Dr. Tadeo Smyth AMYLASEon 10-02-2022 Amylase [Catalytic activity/Vol] 61 U/L Normal 25-115 [facility] Comment on above: Performed By: #### A KEITH MARTÍNEZ ####[facility] Jpskmlixmp1305 [place] [phone]. Tadeo Smyth CBC AUTO DIFFon 06-06-2022 BASO # 0.0 103/ul Normal 0.0-0.1 [facility] Comment on above: Performed By: #### C BC ####[facility] Nfqlcecigb1844 [place] [phone]. Tadeo Smyth Basophils/100 WBC (Bld) 0.5 % Normal 0.2-2.0 [facility] Comment on above: Performed By: #### C BC ####[facility] Fkbmzawbpm0700 [place] [address]Dr. Tadeo Smyth EO # 0.2 103/ul Normal 0.0-0.7 [facility] Comment on above: Performed By: #### C BC ####[facility] Ukwwkodiuy[address] [place], [place] [address]Dr. Tadeo Smyth Eosinophils/100 WBC (Bld) 3.4 % Normal 0.9-7.0 [facility] Comment on above: Performed By: #### C BC ####[facility] Baznlasgve8935 [place] [phone]. Tadeo Smyth Erythrocyte distribution width (RBC) [Ratio] 13.2 % Normal 11.0-15.0 [facility] Comment on above: Performed By: #### C BC ####[facility] Dovjjcfnpe3355 [place] [phone]. Tadeo Smyth Hematocrit (Bld) [Volume fraction] 38.3 % Normal 36.0-48.0 [facility] Comment on above: Performed By: #### C BC ####[facility] Qixqicfnkc1602 [place] [address]Dr. Tadeo Smyth Hemoglobin (Bld) [Mass/Vol] 12.0 g/dL Normal 12.0-16.0 [facility] Comment on above: Performed By: #### C BC ####[facility] Osdmpkkwem3516 [place] [phone]. Tadeo Smyth IG # 0.01 10e3/ul Normal 0.00-0.03 [facility] Comment on above: Performed By: #### C BC ####[facility] Mouehyvzhy6306 [place] [phone]. Tadeo Smyth IG % 0.2 % Normal 0.0-0.5 [facility] Comment on above: Performed By: #### C BC ####[facility] Lztwjsjbkr1291 [place] [address]Dr. Tadeo Smyth LYMPH # 1.7 103/ul Normal 1.2-3.8 [facility] Comment on above: Performed By: #### C BC ####[facility] Fcfdjsgnzd2922 [place] [address]Dr. Tadeo Smyth Lymphocytes/100 WBC (Bld) 28.1 % Normal 20.5-60.0 [facility] Comment on above: Performed By: #### C BC ####[facility] Ogfbghjzzx2917 [place] [address]Dr. Tadeo Smyth MANUAL DIFF REQ NO Normal [facility] Comment on above: Performed By: #### C BC ####[facility] Nanugawajn5947 [place] [address]Dr. Tadeo Smyth MCH (RBC) [Entitic mass] 28.5 pg Normal 26.7-34.0 [facility] Comment on above: Performed By: #### C BC ####[facility] Svpmkvqkum4830 [place] [address]Dr. Tadeo Smyth MCHC (RBC) [Mass/Vol] 31.3 g/dL Normal 29.9-35.2 [facility] Comment on above: Performed By: #### C BC ####[facility] Dhfqkwbmmn7546 [place] [address]Dr. Tadeo Smyth MCV (RBC) [Entitic vol] 91.0 fL Normal 81.0-99.0 [facility] Comment on above: Performed By: #### C BC ####[facility] Cgxgrmltni1941 [place] [phone]. Tadeo Smyth MONO # 0.4 103/ul Normal 0.3-0.8 [facility] Comment on above: Performed By: #### C BC ####[facility] Jstwlpzaic2771 [place] [phone]. Tadeo Smyth Monocytes/100 WBC (Bld) 7.1 % Normal 1.7-12.0 [facility] Comment on above: Performed By: #### C BC ####[facility] Kgzdatbbcw1155 [place] [phone]. Tadeo Smyth NEUT # 3.6 103/ul Normal 1.4-6.5 [facility] Comment on above: Performed By: #### C BC ####[facility] Vrfduswjcz4671 [place] [phone]. Tadeo Smyth Neutrophils/100 WBC (Bld) 60.7 % Normal 43.0-75.0 [facility] Comment on above: Performed By: #### C BC ####[facility] Dmvxntogfc7730 [place] [phone]. Tadeo Smyth Platelet mean volume (Bld) [Entitic vol] 8.9 fL Critically low 9.5-13.5 [facility] Comment on above: Performed By: #### C BC ####[facility] Rkpgiggusy4085 [place] [phone]. Tadeo Smyth PLT 374 103/ul Normal 150-450 [facility] Comment on above: Performed By: #### C BC ####[facility] Ulgvsgvxgj3702 [place] [phone]. Tadeo Smyth RBC 4.21 106/ul Normal 4.20-5.40 [facility] Comment on above: Performed By: #### C BC ####[facility] Qjcrphlkim3726 [place] [phone]. Tadeo Smyth WBC 5.9 103/ul Normal 4.0-11.0 [facility] Comment on above: Performed By: #### C BC ####[facility] Idzhibkvjn4415 [place] [phone]. Tadeo Smyth CT ABD/PELV W CONon 06-06-[address] ABD/PELV W CON Normal [facility] ER URINE PROFILEon 2 Bilirubin Ql (U) Negative Normal NEGATIVE [facility] Comment on above: Performed By: #### SANDRO MERCHANTRO ####[facility] Tdwgqmlbbl0297 [place] [address]Dr. Tadeo Smyth Clarity (U) CLOUDY Abnormal CLEAR [facility] Comment on above: Performed By: #### SANDRO MERCHANTRO ####[facility] Xkogpezaav9967 [place] [address]Dr. Tadeo Smyth Color (U) LT. YELLOW Normal YELLOW [facility] Comment on above: Performed By: #### SANDRO MERCHANTRO ####[facility] Coibbzxcmn1871 [place] [address]Dr. Tadeo Smyth ERUAHD A micrscopic examina tion will be performed if indicated. Normal [facility] Comment on above: Performed By: #### SANDRO MERCHANTRO ####[facility] Jeiefwlzve0571 [place] [address]Dr. Tadeo Smyth Glucose Ql (U) Negative Normal NEGATIVE [facility] Comment on above: Performed By: #### SANDRO MERCHANTRO ####[facility] Hzgblfvvaj0091 [place] [address]Dr. Tadeo Smyth Hemoglobin Ql (U) TRACE-INTACT Abnormal NEGATIVE [facility] Comment on above: Performed By: #### SANDRO MERCHANTRO ####[facility] Mjaehwjeve4164 [place] [address]Dr. Tadeo Smyth Ketones Ql (U) Negative Normal NEGATIVE [facility] Comment on above: Performed By: #### SANDRO MERCHANTRO ####[facility] Bxfddzvfoe8260 [place] [address]Dr. Tadeo Smyth LEUKOCYTES SMALL Abnormal NEGATIVE [facility] Comment on above: Performed By: #### SANDRO MERCHANTRO ####[facility] Aqelfmkjqk8740 [place] [address]Dr. Margotnicole Smyth Nitrite Ql (U) Negative Normal NEGATIVE [facility] Comment on above: Performed By: #### KAROL MERCHANT ####[facility] Famwooocyu9106 [place] [address]Dr. Margotnicole Smyth pH (U) 6.0 [pH] Normal 5-9 [facility] Comment on above: Performed By: #### KAROL MERCHANT ####[facility] Lxjkqaxjkq5387 [place] [address]Dr. Tadeo Smyth SPEC GRAVITY 1.020 Normal 1.005-<=1.0 25 [facility] Comment on above: Performed By: #### KAROL MERCHANT ####[facility] Rbmktzewru3811 [place] [address]Dr. Tadeo Smyth UA PROTEIN Negative Normal NEGATIVE/ TRACE [facility] Comment on above: Performed By: #### KAROL MERCHANT ####[facility] Zquevozjph[address] [place], [place] [address]Dr. Tadeo Smyth UR MICRO IND INDICATED Normal [facility] Comment on above: Performed By: #### KAROL MERCHANT ####[facility] Ysujjlfotx5[address] [place], [place] [address]Dr. Tadeo Smyth Urobilinogen Qn (U) 0.2 {Benito'U}/dL Normal 0.2 - 1. 0 [facility] Comment on above: Performed By: #### KAROL MERCHANT ####[facility] Naivzibmhk1831 [place] [address]Dr. Tadeo Smyth LIPASEon 06-06-2022 Lipase [Catalytic activity/Vol] 100.0 U/L Normal 73.0-393.0 [facility] Comment on above: Performed By: #### A MY, LIPA ####[facility] Rzshmlywep7[address] [place], [place] [address]Dr. Tadeo Smyth PROF 14(COMP METB)on 022 Albumin [Mass/Vol] 3.3 g/dL Critically low 3.4-5.0 [facility] Comment on above: Performed By: #### C MP ####[facility] Talqydmzfs7154 [place] [address]Dr. Tadeo Haja Albumin/Globulin [Mass ratio] 0.9 {ratio} Normal [facility] Comment on above: Performed By: #### C MP ####[facility] Ucrywbnlqi0567 [place] [address]Dr. Tadeo Haja ALP [Catalytic activity/Vol] 140 U/L Critically high 46-116 [facility] Comment on above: Performed By: #### C MP ####[facility] Refebpqeqn6713 [place] [address]Dr. Tadeo Haja ALT [Catalytic activity/Vol] 23 U/L Normal 14-59 [facility] Comment on above: Performed By: #### C MP ####[facility] Yrxraotfvp1933[address] [place], [place] [address]Dr. Tadeo Smyth Anion gap [Moles/Vol] 11.6 mmol/L Normal [facility] Comment on above: Performed By: #### C MP ####[facility] Wnwvijztpq8638[address] [place], [place] [address]Dr. Tadeo Haja AST [Catalytic activity/Vol] 18 U/L Normal 15-37 [facility] Comment on above: Performed By: #### C MP ####[facility] Ftwnjpzvho026[address] [place], [place] [address]Dr. Tadeo Smyth Bilirubin [Mass/Vol] 0.2 mg/dL Normal 0.2-1.0 [facility] Comment on above: Performed By: #### C MP ####[facility] Ppctkarsoa0862 [place] [address]Dr. Tadeo Smyth Calcium [Mass/Vol] 8.8 mg/dL Normal 8.5-10.1 [facility] Comment on above: Performed By: #### C MP ####[facility] Wljlszusol5567 [place] [address]Dr. Tadeo Smyth Chloride [Moles/Vol] 109 mmol/L Critically high 98-107 [facility] Comment on above: Performed By: #### C MP ####[facility] Bgglmltgxc6278 [place] [phone]. Tadeo Smyth CO2 [Moles/Vol] 26.3 mmol/L Normal 21.0-32.0 [facility] Comment on above: Performed By: #### C MP ####[facility] Rnuxkqrfja0603 [place] [address]Dr. Tadeo Smyth Creatinine [Mass/Vol] 0.81 mg/dL Normal 0.55-1.02 [facility] Comment on above: Performed By: #### C MP ####[facility] Ocrtvnximp2968 [place] [address]Dr. Tadeo Smyth EGFR-AF KENYAN >60 Normal >=60 [facility] Comment on above: Performed By: #### C MP ####[facility] Urcpsljysd2356[address] [place], [place] [address]Dr. Tadeo Smyth EGFR-NON AF KENYAN >60 Normal >=60 [facility] Comment on above: Performed By: #### C MP ####[facility] Peqtoiqhmi3068[address] [place], [place] [address]Dr. Taedo Smyth Globulin (S) [Mass/Vol] 3.7 g/dL Normal [facility] Comment on above: Performed By: #### C MP ####[facility] Fjylerbrir8718[address] [place], [place] [address]Dr. Tadeo Smyth Glucose [Mass/Vol] 90 mg/dL Normal 74-106 [facility] Comment on above: Performed By: #### C MP ####[facility] Ctqiueslnw9914[address] [place], [place] [address]Dr. Tadeo Smyth Potassium [Moles/Vol] 3.9 mmol/L Normal 3.5-5.1 [facility] Comment on above: Performed By: #### C MP ####[facility] Vakqxnnsmm8116[address] [place], [place] [address]Dr. Tadeo Smyth Protein [Mass/Vol] 7.0 g/dL Normal 6.4-8.2 [facility] Comment on above: Performed By: #### C MP ####[facility] Nohyrksssg2472 [place] [address]Dr. Tadeo Smyth Sodium [Moles/Vol] 143 mmol/L Normal 136-145 [facility] Comment on above: Performed By: #### C MP ####[facility] Zrvwffbefy3720 [place] [address]Dr. Tadeo Smyth Urea nitrogen [Mass/Vol] 12.0 mg/dL Normal 7.0-18.0 [facility] Comment on above: Performed By: #### C MP ####[facility] Kedvjtddmk0534 [place] [address]Dr. Tadeo Smyth Urea nitrogen/Creatinine [Mass ratio] 14.8 mg/mg Normal [facility] Comment on above: Performed By: #### C MP ####[facility] Zfvcfsjrvl8946 [place] [address]Dr. Tadeo Smyth URINE MICROSCOPIC ONLYon BACTERIA LARGE Abnormal NONE SEEN [facility] Comment on above: Performed By: #### KAROL MERCHANT ####[facility] Mrjhxkfjmj0137[address] [place], [place] [address]Dr. Tadeo Smyth Bacteria identified Cx Nom (U) INDICATED Normal [facility] Comment on above: Performed By: #### KAROL MERCHANT ####[facility] Rsducjdtmh2213 [place] [address]Dr. Tadeo Smyth CAST NONE SEEN Normal NONE SEEN [facility] Comment on above: Performed By: #### SANDRO MERCHANTRO ####[facility] Epqbmsvnpf3482 [place] [address]Dr. Tadeo Smyth Crystals LM Nom (Urine sed) NONE SEEN Normal NONE SEEN [facility] Comment on above: Performed By: #### SANDRO MERCHANTRO ####[facility] Oheglybgai3345 [place] [address]Dr. Tadeo Smyth Epithelial cells LM Ql (Urine sed) RARE Normal NONE SEEN /RARE [facility] Comment on above: Performed By: #### SANDRO MERCHANTRO ####[facility] Xvrvefcyoj4133[address] [place], [place] [address]Dr. Tadeo Smyth MUCOUS TRACE Abnormal NONE SEEN [facility] Comment on above: Performed By: #### SANDRO MERCHANTRO ####[facility] Wivwruiamn7404 [place] [address]Dr. Tadeo Smyth RBC 0-2 Normal 0-2 [facility] Comment on above: Performed By: #### SANDRO MERCHANTRO ####[facility] Hyspkogckm3378 [place] [phone]. Tadeo Smyth WBC 2-5 Abnormal NONE SEEN [facility] Comment on above: Performed By: #### SANDRO MERCHANTRO ####[facility] Pirahhoddm7504 [place] [address]Dr. Tadeo Haja AMYLASEon 06-04-2022 Amylase [Catalytic activity/Vol] 61 U/L Normal 25-115 [facility] Comment on above: Performed By: #### A MY, CMP, LIPA ####[facility] Wtiiqkxijb030[address] [place], [place] [address]Dr. Tadeo Smyth CBC AUTO DIFFon 06-04-2022 BASO # 0.0 103/ul Normal 0.0-0.1 [facility] Comment on above: Performed By: #### C BC ####[facility] Shsiulmdlr7796[address] [place], [place] [address]Dr. Tadeo Smyth Basophils/100 WBC (Bld) 0.5 % Normal 0.2-2.0 [facility] Comment on above: Performed By: #### C BC ####[facility] Eafbfcpfqm6252[address] [place], [place] [address]Dr. Tadeo Smyth EO # 0.3 103/ul Normal 0.0-0.7 [facility] Comment on above: Performed By: #### C BC ####[facility] Ofqnvppffc8564[address] [place], [place] [address]Dr. Tadeo Smyth Eosinophils/100 WBC (Bld) 4.7 % Normal 0.9-7.0 [facility] Comment on above: Performed By: #### C BC ####[facility] Nukcblvdau1077[address] [place], [place] [address]Dr. Tadeo Smyth Erythrocyte distribution width (RBC) [Ratio] 13.2 % Normal 11.0-15.0 [facility] Comment on above: Performed By: #### C BC ####[facility] Vsuvztmglv1442 [place] [address]Dr. Tadeo Smyth Hematocrit (Bld) [Volume fraction] 36.9 % Normal 36.0-48.0 [facility] Comment on above: Performed By: #### C BC ####[facility] Xpejfdxfta0543 [place] [address]Dr. Tadeo Smyth Hemoglobin (Bld) [Mass/Vol] 11.9 g/dL Critically low 12.0-16.0 [facility] Comment on above: Performed By: #### C BC ####[facility] Idraglclff223[address] [place], [place] [address]Dr. Tadeo Smyth IG # 0.01 10e3/ul Normal 0.00-0.03 [facility] Comment on above: Performed By: #### C BC ####[facility] Aokzvtpick3464[address] [place], [place] [address]Dr. Tadeo Smyth IG % 0.2 % Normal 0.0-0.5 [facility] Comment on above: Performed By: #### C BC ####[facility] Ofvsowgfdd6368[address] [place], [place] [address]Dr. Tadeo Smyth LYMPH # 2.3 103/ul Normal 1.2-3.8 [facility] Comment on above: Performed By: #### C BC ####[facility] Rnhfvxkxxb5548[address] [place], [place] [address]Dr. Tadeo Smyth Lymphocytes/100 WBC (Bld) 37.3 % Normal 20.5-60.0 [facility] Comment on above: Performed By: #### C BC ####[facility] Ntgcadscpn6866[address] [place], [place] [address]Dr. aTdeo Haja MANUAL DIFF REQ NO Normal The [facility] Comment on above: Performed By: #### C BC ####[facility] Aqghybvnyx7145[address] [place], [place] [address]Dr. Margotnicole Smyth MCH (RBC) [Entitic mass] 29.0 pg Normal 26.7-34.0 [facility] Comment on above: Performed By: #### C BC ####[facility] Crpnzwabik4113 [place] [address]DrNeo Smyth MCHC (RBC) [Mass/Vol] 32.2 g/dL Normal 29.9-35.2 [facility] Comment on above: Performed By: #### C BC ####[facility] Kwpvpveuws0466[address] [place], [place] [address]DrNeo Smyth MCV (RBC) [Entitic vol] 90.0 fL Normal 81.0-99.0 [facility] Comment on above: Performed By: #### C BC ####[facility] Kgkduzukvo7289[address] [place], [place] [address]DrNeo Smyth MONO # 0.4 103/ul Normal 0.3-0.8 [facility] Comment on above: Performed By: #### C BC ####[facility] Jjdymqemvt43[address] [place], [place] [address]DrNeo Smyth Monocytes/100 WBC (Bld) 6.8 % Normal 1.7-12.0 [facility] Comment on above: Performed By: #### C BC ####[facility] Fknkoirxdx4897[address] [place], [place] [address]DrNeo Smyth NEUT # 3.2 103/ul Normal 1.4-6.5 [facility] Comment on above: Performed By: #### C BC ####[facility] Zunxdyfgbs922[address] [place], [place] [address]DrNeo Smyth Neutrophils/100 WBC (Bld) 50.5 % Normal 43.0-75.0 [facility] Comment on above: Performed By: #### C BC ####[facility] Goydsnbmyf3136[address] [place], [place] [address]DrNeo Smyth Platelet mean volume (Bld) [Entitic vol] 8.9 fL Critically low 9.5-13.5 [facility] Comment on above: Performed By: #### C BC ####[facility] Ibcnbvvpex0009[address] [place], [place] [address]Dr. Tadeo Smyth PLT 387 103/ul Normal 150-450 [facility] Comment on above: Performed By: #### C BC ####[facility] Ychcaebmaj377[address] [place], [place] [address]Dr. Tadeo Smyth RBC 4.10 106/ul Critically low 4.20-5.40 [facility] Comment on above: Performed By: #### C BC ####[facility] Rqajwmmkxn[address] [place] [address]Dr. Tadeo Smyth WBC 6.2 103/ul Normal 4.0-11.0 [facility] Comment on above: Performed By: #### C BC ####[facility] Ydfwdatdap[address] [place], [place] [address]Dr. Tadeo Smyth CT ABD/PELV W CONon 06-04-[address] ABD/PELV W CON Normal [facility] ER URINE PROFILEon 2 Bilirubin Ql (U) Negative Normal NEGATIVE [facility] Comment on above: Performed By: #### SANDRO MERCHANTRO ####[facility] Sotzpzxbmt7[address] [place], [place] [address]Dr. Tadeo Smyth Clarity (U) CLEAR Normal CLEAR [facility] Comment on above: Performed By: #### KAROL MERCHANT ####[facility] Odosmeeqju4286[address] [place], [place] [address]Dr. Tadeo Smyth Color (U) LT. YELLOW Normal YELLOW [facility] Comment on above: Performed By: #### KAROL MERCHANT ####[facility] Jrqychblrb8375[address] [place], [place] [address]Dr. Tadeo Smyth ERUAHD A micrscopic examina tion will be performed if indicated. Normal [facility] Comment on above: Performed By: #### KAROL MERCHANT ####[facility] Jxiwenwurc9082[address] [place], [place] [address]Dr. Tadeo Smyth Glucose Ql (U) Negative Normal NEGATIVE [facility] Comment on above: Performed By: #### SANDRO MERCHANTRO ####[facility] Ndxjzsrwbe3626 [place] [address]Dr. Tadeo Smyth Hemoglobin Ql (U) TRACE-INTACT Abnormal NEGATIVE [facility] Comment on above: Performed By: #### SANDRO MERCHANTRO ####[facility] Xkfzfdvbpt1553[address] [place], [place] [address]Dr. Tadeo Smyth Ketones Ql (U) Negative Normal NEGATIVE [facility] Comment on above: Performed By: #### SANDRO MERCHANTRO ####[facility] Sceoteehgh9832[address] [place], [place] [address]Dr. Tadeo Smyth LEUKOCYTES Negative Normal NEGATIVE [facility] Comment on above: Performed By: #### SANDRO MERCHANTRO ####[facility] Gkjienjrzm7976[address] [place], [place] [address]Dr. Tadeo Smyth Nitrite Ql (U) Negative Normal NEGATIVE [facility] Comment on above: Performed By: #### SANDRO MERCHANTRO ####[facility] Ywbflhmuoh2007[address] [place], [place] [address]Dr. Tadeo Smyth pH (U) 6.5 [pH] Normal 5-9 [facility] Comment on above: Performed By: #### SANDRO MERCHANTRO ####[facility] Dxwxtylire6469[address] [place], [place] [address]Dr. Tadeo Smyth SPEC GRAVITY 1.015 Normal 1.005-<=1.0 25 [facility] Comment on above: Performed By: #### SANDRO MERCHANTRO ####[facility] Vdgvvzuirg804[address] [place], [place] [address]Dr. Tadeo Smyth UA PROTEIN Negative Normal NEGATIVE/ TRACE [facility] Comment on above: Performed By: #### SANDRO MERCHANTRO ####[facility] Rctqudxeul5063[address] [place], [place] [address]Dr. Tadeo Smyth UR MICRO IND INDICATED Normal [facility] Comment on above: Performed By: #### SANDRO MERCHANTRO ####[facility] Hxvblktuom5056[address] [place], [place] [address]Dr. Tadeo Smyth Urobilinogen Qn (U) 0.2 {Benito'U}/dL Normal 0.2 - 1. 0 [facility] Comment on above: Performed By: #### E KAROL FRANCISCO ####[facility] Xsegefkxtv7837 [place] [address]Dr. Tadeo Smyth LIPASEon 06-04-2022 Lipase [Catalytic activity/Vol] 81.0 U/L Normal 73.0-393.0 [facility] Comment on above: Performed By: #### A MY, CMP, LIPA ####[facility] Gihmwdnewz0555 [place] [address]Dr. Tadeo Smyth PROF 14(COMP METB)on 022 Albumin [Mass/Vol] 3.6 g/dL Normal 3.4-5.0 [facility] Comment on above: Performed By: #### A MY, CMP, LIPA ####[facility] Bwoyeumgzc4316 [place] [address]Dr. Tadeo Smyth Albumin/Globulin [Mass ratio] 1.0 {ratio} Normal [facility] Comment on above: Performed By: #### A MY, CMP, LIPA ####[facility] Ontqwcfrxe0183 [place] [address]Dr. Tadeo Smyth ALP [Catalytic activity/Vol] 150 U/L Critically high 46-116 [facility] Comment on above: Performed By: #### A MY, CMP, LIPA ####[facility] Laofkhjfrl6690 [place] [address]Dr. Tadeo Smyth ALT [Catalytic activity/Vol] 23 U/L Normal 14-59 [facility] Comment on above: Performed By: #### A MY, CMP, LIPA ####[facility] Ddjxftword5801 [place] [address]Dr. Tadeo Smyth Anion gap [Moles/Vol] 13.2 mmol/L Normal [facility] Comment on above: Performed By: #### A MY, CMP, LIPA ####[facility] Rlyuwerjyd0665 [place] [address]Dr. Tadeo Smyth AST [Catalytic activity/Vol] 12 U/L Critically low 15-37 [facility] Comment on above: Performed By: #### A MY, CMP, LIPA ####[facility] Ixpcccedlb7972 [place] [address]Dr. Tadeo Smyth Bilirubin [Mass/Vol] 0.1 mg/dL Critically low 0.2-1.0 [facility] Comment on above: Performed By: #### A MY, CMP, LIPA ####[facility] Ipshcenfcn3729 [place] [address]Dr. Tadeo Smyth Calcium [Mass/Vol] 9.0 mg/dL Normal 8.5-10.1 [facility] Comment on above: Performed By: #### A MY, CMP, LIPA ####[facility] Gjxnsipwec36[address] [place], [place] [address]Dr. Tadeo Smyth Chloride [Moles/Vol] 104 mmol/L Normal 98-107 [facility] Comment on above: Performed By: #### A MY, CMP, LIPA ####[facility] Mfqrvtxjsa3164[address] [place], [place] [address]Dr. Tadeo Smyth CO2 [Moles/Vol] 26.6 mmol/L Normal 21.0-32.0 [facility] Comment on above: Performed By: #### A MY, CMP, LIPA ####[facility] Tgdfgzgbvw6164[address] [place], [place] [address]Dr. Tadeo Smyth Creatinine [Mass/Vol] 0.97 mg/dL Normal 0.55-1.02 [facility] Comment on above: Performed By: #### A MY, CMP, LIPA ####[facility] Lsolkubbuy5173[address] [place], [place] [address]Dr. Tadeo Smyth EGFR-AF KENYAN >60 Normal >=60 [facility] Comment on above: Performed By: #### A MY, CMP, LIPA ####[facility] Clfyzdbvwz29[address] [place], [place] [address]Dr. Tadeo Smyth EGFR-NON AF KENYAN 60 mL/min/1.73m2 Normal >=60 [facility] Comment on above: Performed By: #### A MY, CMP, LIPA ####[facility] Vhirfnqsms[address] [place], [place] [id number]. Tadeo Smyth Globulin (S) [Mass/Vol] 3.7 g/dL Normal [facility] Comment on above: Performed By: #### A MY, CMP, LIPA ####[facility] Hischpmrnf7435 [place] [address]Dr. Tadeo Smyth Glucose [Mass/Vol] 109 mg/dL Critically high 74-106 [facility] Comment on above: Performed By: #### A MY, CMP, LIPA ####[facility] Kxxwiqpevv7070 [place] [address]Dr. Tadeo Smyth Potassium [Moles/Vol] 3.8 mmol/L Normal 3.5-5.1 [facility] Comment on above: Performed By: #### A MY, CMP, LIPA ####[facility] Jrhczrcbzu7512 [place] [address]Dr. Tadeo Smyth Protein [Mass/Vol] 7.3 g/dL Normal 6.4-8.2 [facility] Comment on above: Performed By: #### A MY, CMP, LIPA ####[facility] Bthztwxgpi3906 [place] [address]Dr. Tadeo Smyth Sodium [Moles/Vol] 140 mmol/L Normal 136-145 [facility] Comment on above: Performed By: #### A MY, CMP, LIPA ####[facility] Mycuhzkbga0557 [place] [address]Dr. Tadeo Smyth Urea nitrogen [Mass/Vol] 21.0 mg/dL Critically high 7.0-18.0 [facility] Comment on above: Performed By: #### A MY, CMP, LIPA ####[facility] Ytlmievdyk0662 [place] [address]Dr. Tadeo Smyth Urea nitrogen/Creatinine [Mass ratio] 21.6 mg/mg Normal [facility] Comment on above: Performed By: #### A MY, CMP, LIPA ####[facility] Aenocfqkyr0198 [place] [address]Dr. Tadeo Smyth URINE MICROSCOPIC ONLYon BACTERIA NONE SEEN Normal NONE SEEN [facility] Comment on above: Performed By: #### Matthew FRANCISCO UMICRO ####[facility] Acvbelzzfx0401 [place] [address]Dr. Tadeo Smyth Bacteria identified Cx Nom (U) NOT INDICATED Normal [facility] Comment on above: Performed By: #### Matthew FRANCISCO UMICRO ####[facility] Kxdjdekogd4628 [place] [address]Dr. Tadeo Smyth CAST NONE SEEN Normal NONE SEEN [facility] Comment on above: Performed By: #### Matthew FRANCISCO UMICRO ####[facility] Yevxgulddl7948 [place] [address]Dr. Tadeo Smyth Crystals LM Nom (Urine sed) NONE SEEN Normal NONE SEEN [facility] Comment on above: Performed By: #### Matthew FRANCISCO UMCHINEDURO ####[facility] Jcmwllpuhl2254 [place] [address]Dr. Tadeo Smyth Epithelial cells LM Ql (Urine sed) FEW Abnormal NONE SEEN /RARE [facility] Comment on above: Performed By: #### Matthew FRANCISCO UMICRO ####[facility] Ifodsexuqs5203 [place] [address]Dr. Tadeo Smyth MUCOUS NONE SEEN Normal NONE SEEN [facility] Comment on above: Performed By: #### Matthew FRANCISCO UMICRO ####[facility] Mnpxxgukxp9116 [place] [address]Dr. Tadeo Smyth RBC 0-2 Normal 0-2 [facility] Comment on above: Performed By: #### SANDRO MERCHANTRO ####[facility] Klvpzoknwv3389[address] [place], [place] [address]Dr. Tadeo Smyth WBC NONE SEEN Normal NONE SEEN [facility] Comment on above: Performed By: #### RANDI MERCHANTICRO ####[facility] Fntnmecfnv0186[address] [place], [place] [address]Dr. Tadeo Smyth MICRO OTHER TESTSOrdered By: Guillermo Rocha on 04-29-2022 Fecal WBC Lactoferrin Negative (04/29/22 8:00 AM) Normal Negative [facility] [place] Sero CULTURE URINEon 03-31-2022 CULTURE URINE Normal [facility] Comment on above: Performed By: #### U RCX ####[facility] Yovjuhbfvq6308 [place] [address]Dr. Tadeo Haja CBC AUTO DIFFon 03-30-2022 BASO # 0.0 103/ul Normal 0.0-0.1 [facility] Comment on above: Performed By: #### C BC ####[facility] Ecepnxfixb038[address] [place], [place] [address]Dr. Tadeo Smyth Basophils/100 WBC (Bld) 0.4 % Normal 0.2-2.0 [facility] Comment on above: Performed By: #### C BC ####[facility] Bbkbicdkga442[address] [place], [place] [address]Dr. Tadeo Smyth EO # 0.3 103/ul Normal 0.0-0.7 [facility] Comment on above: Performed By: #### C BC ####[facility] Jyxjejjyns4859[address] [place], [place] [address]Dr. Tadeo Smyth Eosinophils/100 WBC (Bld) 5.1 % Normal 0.9-7.0 [facility] Comment on above: Performed By: #### C BC ####[facility] Khcofnnonm083[address] [place], [place] [address]Dr. Tadeo Haja Erythrocyte distribution width (RBC) [Ratio] 12.8 % Normal 11.0-15.0 [facility] Comment on above: Performed By: #### C BC ####[facility] Xykrgjeqxg985[address] [place], [place] [address]Dr. Margotnicole Smyth Hematocrit (Bld) [Volume fraction] 36.4 % Normal 36.0-48.0 [facility] Comment on above: Performed By: #### C BC ####[facility] Pndtcbtnhc3585[address] [place], [place] [address]Dr. Margotnicole Smyth Hemoglobin (Bld) [Mass/Vol] 12.0 g/dL Normal 12.0-16.0 [facility] Comment on above: Performed By: #### C BC ####[facility] Lljuszbgbw5867[address] [place], [place] [address]DrNeo Smyth IG # 0.02 10e3/ul Normal 0.00-0.03 [facility] Comment on above: Performed By: #### C BC ####[facility] Mlunqatnyk6048 [place] [address]DrNeo Smyth IG % 0.4 % Normal 0.0-0.5 [facility] Comment on above: Performed By: #### C BC ####[facility] Paljcwifre2570 [place] [address]DrNeo Smyth LYMPH # 1.4 103/ul Normal 1.2-3.8 [facility] Comment on above: Performed By: #### C BC ####[facility] Skirztxinp300[address] [place], [place] [address]DrNeo Smyth Lymphocytes/100 WBC (Bld) 25.5 % Normal 20.5-60.0 [facility] Comment on above: Performed By: #### C BC ####[facility] Afbrauviet3879[address] [place], [place] [address]DrNeo Smyth MANUAL DIFF REQ NO Normal [facility] Comment on above: Performed By: #### C BC ####[facility] Zilcxfbpkx8555[address] [place], [place] [address]DrNeo Smyth MCH (RBC) [Entitic mass] 29.1 pg Normal 26.7-34.0 [facility] Comment on above: Performed By: #### C BC ####[facility] Dojsbmihlb1259[address] [place], [place] [address]DrNeo Smyth MCHC (RBC) [Mass/Vol] 33.0 g/dL Normal 29.9-35.2 [facility] Comment on above: Performed By: #### C BC ####[facility] Bdvgkkyjdn6809 [place] [address]DrNeo Smyth MCV (RBC) [Entitic vol] 88.3 fL Normal 81.0-99.0 [facility] Comment on above: Performed By: #### C BC ####[facility] Ubawgmgigv4364[address] [place], [place] [address]DrNeo Smyth MONO # 0.4 103/ul Normal 0.3-0.8 [facility] Comment on above: Performed By: #### C BC ####[facility] Wrxuvcjtsi4999 [place] [id number] Smyth Monocytes/100 WBC (Bld) 7.1 % Normal 1.7-12.0 [facility] Comment on above: Performed By: #### C BC ####[facility] Njqddschnl4135 [place] [id number]. Tadeo Smyth NEUT # 3.4 103/ul Normal 1.4-6.5 [facility] Comment on above: Performed By: #### C BC ####[facility] Qddlvsvgip9848 [place] [address]Dr. Tadeo Smyth Neutrophils/100 WBC (Bld) 61.5 % Normal 43.0-75.0 [facility] Comment on above: Performed By: #### C BC ####[facility] Qxesbjgmsl17[address] [place], [place] [id number]. Tadeo Smyth Platelet mean volume (Bld) [Entitic vol] 8.8 fL Critically low 9.5-13.5 [facility] Comment on above: Performed By: #### C BC ####[facility] Osphygijfo4211[address] [place], [place] [address]Dr. Tadeo Smyth PLT 324 103/ul Normal 150-450 [facility] Comment on above: Performed By: #### C BC ####[facility] Vyiakjnnno9497 [place] [phone]. Tadeo Smyth RBC 4.12 106/ul Critically low 4.20-5.40 [facility] Comment on above: Performed By: #### C BC ####[facility] Fiylyafiyh0326 [place] [id number] Tadeo Smyth WBC 5.5 103/ul Normal 4.0-11.0 [facility] Comment on above: Performed By: #### C BC ####[facility] Jrczbzlkok3038[address] [place], [place] [address]DrNeo Tadeo Haja PROF 14(COMP METB)on 022 Albumin [Mass/Vol] 3.1 g/dL Critically low 3.4-5.0 [facility] Comment on above: Performed By: #### C MP ####[facility] Gsmvsgnsko7421 [place] [address]Dr. Tadeo Smyth Albumin/Globulin [Mass ratio] 0.9 {ratio} Normal [facility] Comment on above: Performed By: #### C MP ####[facility] Yrscyxvzfc1786 [place] [address]Dr. Tadeo Smyth ALP [Catalytic activity/Vol] 119 U/L Critically high 46-116 [facility] Comment on above: Performed By: #### C MP ####[facility] Zdbccouuxi476[address] [place], [place] [address]Dr. Tadeo Smyth ALT [Catalytic activity/Vol] 17 U/L Normal 14-59 [facility] Comment on above: Performed By: #### C MP ####[facility] Pyffowfetm7887[address] [place], [place] [address]Dr. Tadeo Smyth Anion gap [Moles/Vol] 12.0 mmol/L Normal [facility] Comment on above: Performed By: #### C MP ####[facility] Pdrkjvxiet6756[address] [place], [place] [address]Dr. Tadeo Smyth AST [Catalytic activity/Vol] 16 U/L Normal 15-37 [facility] Comment on above: Performed By: #### C MP ####[facility] Mtmzxcvken3482[address] [place], [place] [address]Dr. Tadeo Smyth Bilirubin [Mass/Vol] 0.4 mg/dL Normal 0.2-1.0 [facility] Comment on above: Performed By: #### C MP ####[facility] Pbtjbzvtmw7156[address] [place], [place] [address]Dr. Tadeo Smyth Calcium [Mass/Vol] 8.9 mg/dL Normal 8.5-10.1 [facility] Comment on above: Performed By: #### C MP ####[facility] Qcfxmzmzva1423[address] [place], [place] [address]Dr. Tadeo Smyth Chloride [Moles/Vol] 107 mmol/L Normal 98-107 [facility] Comment on above: Performed By: #### C MP ####[facility] Ncfufrtesj8397 [place] [address]Dr. Tadeo Smyth CO2 [Moles/Vol] 26.9 mmol/L Normal 21.0-32.0 [facility] Comment on above: Performed By: #### C MP ####[facility] Rxatjerqnh7118 [place] [address]Dr. Tadeo Smyth Creatinine [Mass/Vol] 0.82 mg/dL Normal 0.55-1.02 [facility] Comment on above: Performed By: #### C MP ####[facility] Uhrkwaurfz2089[address] [place], [place] [address]Dr. Tadeo Smyth EGFR-AF KENYAN >60 Normal >=60 [facility] Comment on above: Performed By: #### C MP ####[facility] Tnzdnnlxhx4016[address] [place], [place] [address]Dr. Tadeo Smyth EGFR-NON AF KENYAN >60 Normal >=60 [facility] Comment on above: Performed By: #### C MP ####[facility] Rxzrhaodcy5539[address] [place], [place] [address]Dr. Tadeo Smyth Globulin (S) [Mass/Vol] 3.5 g/dL Normal [facility] Comment on above: Performed By: #### C MP ####[facility] Pxxazrjdch4162 [place] [address]Dr. Tadeo Smyth Glucose [Mass/Vol] 104 mg/dL Normal 74-106 [facility] Comment on above: Performed By: #### C MP ####[facility] Hcitymlwtu8454 [place] [address]Dr. Tadeo Smyth Potassium [Moles/Vol] 3.9 mmol/L Normal 3.5-5.1 [facility] Comment on above: Performed By: #### C MP ####[facility] Vsldgsbwpj3905 [place] [address]Dr. Tadeo Haja Protein [Mass/Vol] 6.6 g/dL Normal 6.4-8.2 [facility] Comment on above: Performed By: #### C MP ####[facility] Vfyjnyqmkt1528 [place] [address]Dr. Tadeo Smyth Sodium [Moles/Vol] 142 mmol/L Normal 136-145 [facility] Comment on above: Performed By: #### C MP ####[facility] Dfnikpfxtx[address] [place], [place] [id number]. Tadeo Smyth Urea nitrogen [Mass/Vol] 5.0 mg/dL Critically low 7.0-18.0 [facility] Comment on above: Performed By: #### C MP ####[facility] Rwzgorolzn4389[address] [place], [place] [address]Dr. Tadeo Smyth Urea nitrogen/Creatinine [Mass ratio] 6.1 mg/mg Normal [facility] Comment on above: Performed By: #### C MP ####[facility] Vqijthfksr4119[address] [place], [place] [address]Dr. Tadeo Smyth CBC AUTO DIFFon 03-29-2022 BASO # 0.0 103/ul Normal 0.0-0.1 [facility] Comment on above: Performed By: #### C BC ####[facility] Wfcrfrosth7424[address] [place], [place] [address]Dr. Tadeo Haja Basophils/100 WBC (Bld) 0.4 % Normal 0.2-2.0 [facility] Comment on above: Performed By: #### C BC ####[facility] Gdrwajtqik5142[address] [place], [place] [address]Dr. Tadeo Smyth EO # 0.2 103/ul Normal 0.0-0.7 [facility] Comment on above: Performed By: #### C BC ####[facility] Gllkgdxsmj8734[address] [place], [place] [address]Dr. Tadeo Haja Eosinophils/100 WBC (Bld) 4.3 % Normal 0.9-7.0 [facility] Comment on above: Performed By: #### C BC ####[facility] Nnfzgnidyl9[address] [place], [place] [id number]. Tadeo Smyth Erythrocyte distribution width (RBC) [Ratio] 12.9 % Normal 11.0-15.0 [facility] Comment on above: Performed By: #### C BC ####[facility] Pyrzoaktyb9932 [place] [address]Dr. Tadeo Smyth Hematocrit (Bld) [Volume fraction] 33.8 % Critically low 36.0-48.0 [facility] Comment on above: Performed By: #### C BC ####[facility] Wppfrbmovm4273 [place] [address]Dr. Tadeo Smyth Hemoglobin (Bld) [Mass/Vol] 11.1 g/dL Critically low 12.0-16.0 [facility] Comment on above: Performed By: #### C BC ####[facility] Bftngmnnog3783[address] [place], [place] [address]Dr. Tadeo Smyth IG # 0.01 10e3/ul Normal 0.00-0.03 [facility] Comment on above: Performed By: #### C BC ####[facility] Imgrltqzvj9096[address] [place], [place] [address]Dr. Tadeo Smyth IG % 0.2 % Normal 0.0-0.5 [facility] Comment on above: Performed By: #### C BC ####[facility] Jaurkhbokn8229[address] [place], [place] [address]Dr. Tadeo Smyth LYMPH # 1.5 103/ul Normal 1.2-3.8 [facility] Comment on above: Performed By: #### C BC ####[facility] Ubovniuphz909[address] [place], [place] [address]Dr. Tadeo Smyth Lymphocytes/100 WBC (Bld) 29.9 % Normal 20.5-60.0 [facility] Comment on above: Performed By: #### C BC ####[facility] Pndfikbjki4395[address] [place], [place] [address]Dr. Tadeo Smyth MANUAL DIFF REQ NO Normal [facility] Comment on above: Performed By: #### C BC ####[facility] Revbrrnndl7808 [place] [address]Dr. Tadeo Smyth MCH (RBC) [Entitic mass] 29.3 pg Normal 26.7-34.0 [facility] Comment on above: Performed By: #### C BC ####[facility] Ulxeewjbnv4656 [place] [address]Dr. Tadeo Haja MCHC (RBC) [Mass/Vol] 32.8 g/dL Normal 29.9-35.2 [facility] Comment on above: Performed By: #### C BC ####[facility] Fddmegkmcx1617 [place] [address]Dr. Tadeo Smyth MCV (RBC) [Entitic vol] 89.2 fL Normal 81.0-99.0 [facility] Comment on above: Performed By: #### C BC ####[facility] Zfvxxgkrmi415[address] [place], [place] [address]DrNeo Smyth MONO # 0.4 103/ul Normal 0.3-0.8 [facility] Comment on above: Performed By: #### C BC ####[facility] Zllgggbqsx1202[address] [place], [place] [address]Dr. Tadeo Smyth Monocytes/100 WBC (Bld) 7.8 % Normal 1.7-12.0 [facility] Comment on above: Performed By: #### C BC ####[facility] Fomrdddudg8288[address] [place], [place] [address]Dr. Tadeo Smyth NEUT # 2.8 103/ul Normal 1.4-6.5 [facility] Comment on above: Performed By: #### C BC ####[facility] Kqkvkplqrq4955[address] [place], [place] [address]Dr. Tadeo Smyth Neutrophils/100 WBC (Bld) 57.4 % Normal 43.0-75.0 [facility] Comment on above: Performed By: #### C BC ####[facility] Ssvirweqvk[address] [place], [place] [address]DrNeo Smyth Platelet mean volume (Bld) [Entitic vol] 8.9 fL Critically low 9.5-13.5 [facility] Comment on above: Performed By: #### C BC ####[facility] Yxwcwpiogf9[address] [place], [place] [address]Dr. Tadeo Smyth PLT 314 103/ul Normal 150-450 [facility] Comment on above: Performed By: #### C BC ####[facility] Kvjdlpdonf5783 [place] [address]Dr. Tadeo Smyth RBC 3.79 106/ul Critically low 4.20-5.40 [facility] Comment on above: Performed By: #### C BC ####[facility] Rjzauaksxq0407 [place] [id number] Smyth WBC 4.9 103/ul Normal 4.0-11.0 [facility] Comment on above: Performed By: #### C BC ####[facility] Ozyituukod6683 [place] [address]DrNeo Smyth PROF 14(COMP METB)on 022 Albumin [Mass/Vol] 2.8 g/dL Critically low 3.4-5.0 [facility] Comment on above: Performed By: #### C MP ####[facility] Vtchpvonyq0674 [place] [address]DrNeo Smyth Albumin/Globulin [Mass ratio] 0.8 {ratio} Normal [facility] Comment on above: Performed By: #### C MP ####[facility] Hzehxwzagh3859 [place] [address]DrNeo Smyth ALP [Catalytic activity/Vol] 117 U/L Critically high 46-116 [facility] Comment on above: Performed By: #### C MP ####[facility] Uompkgwqbl3272 [place] [address]DrNeo Smyth ALT [Catalytic activity/Vol] 13 U/L Critically low 14-59 [facility] Comment on above: Performed By: #### C MP ####[facility] Puwmqwisnv6162 [place] [id number] Smyth Anion gap [Moles/Vol] 8.7 mmol/L Normal [facility] Comment on above: Performed By: #### C MP ####[facility] Wksvljkbrw0952 [place] [phone] Smyth AST [Catalytic activity/Vol] 12 U/L Critically low 15-37 [facility] Comment on above: Performed By: #### C MP ####[facility] Sgzdkurvyq3867 [place] [address]Dr. Tadeo Smyth Bilirubin [Mass/Vol] 0.4 mg/dL Normal 0.2-1.0 [facility] Comment on above: Performed By: #### C MP ####[facility] Yosphordws1497 [place] [address]Dr. Tadeo Smyth Calcium [Mass/Vol] 8.5 mg/dL Normal 8.5-10.1 [facility] Comment on above: Performed By: #### C MP ####[facility] Dmhurfoyuo[address] [place], [place] [address]Dr. Tadeo Smyth Chloride [Moles/Vol] 108 mmol/L Critically high 98-107 [facility] Comment on above: Performed By: #### C MP ####[facility] Ilacwzfipa[address] [place], [place] [address]Dr. Tdaeo Smyth CO2 [Moles/Vol] 28.0 mmol/L Normal 21.0-32.0 [facility] Comment on above: Performed By: #### C MP ####[facility] Thzcyojtpz[address] [place], [place] [address]Dr. Tadeo Smyth Creatinine [Mass/Vol] 0.74 mg/dL Normal 0.55-1.02 [facility] Comment on above: Performed By: #### C MP ####[facility] Uygoscgeza4024[address] [place], [place] [address]Dr. Tadeo Smyth EGFR-AF KENYAN >60 Normal >=60 [facility] Comment on above: Performed By: #### C MP ####[facility] Gmxhglgqpe0062[address] [place], [place] [address]Dr. Tadeo Smyth EGFR-NON AF KENYAN >60 Normal >=60 [facility] Comment on above: Performed By: #### C MP ####[facility] Qdclzbwcym32[address] [place], [place] [address]Dr. Tadeo Haja Globulin (S) [Mass/Vol] 3.4 g/dL Normal [facility] Comment on above: Performed By: #### C MP ####[facility] Ttsiwciawi0188 [place] [address]Dr. Tadeo Smyth Glucose [Mass/Vol] 107 mg/dL Critically high 74-106 [facility] Comment on above: Performed By: #### C MP ####[facility] Divzxghmzs9964 [place] [address]Dr. Tadeo Smyth Potassium [Moles/Vol] 3.7 mmol/L Normal 3.5-5.1 [facility] Comment on above: Performed By: #### C MP ####[facility] Xauwgvvaqo9340 [place] [address]Dr. Margotnicole Haja Protein [Mass/Vol] 6.2 g/dL Critically low 6.4-8.2 [facility] Comment on above: Performed By: #### C MP ####[facility] Alrkyxxpsr22[address] [place], [place] [address]Dr. Tadeo Smyth Sodium [Moles/Vol] 141 mmol/L Normal 136-145 [facility] Comment on above: Performed By: #### C MP ####[facility] Dskmxqvprs4565[address] [place], [place] [address]Dr. Tadeo Haja Urea nitrogen [Mass/Vol] 7.0 mg/dL Normal 7.0-18.0 [facility] Comment on above: Performed By: #### C MP ####[facility] Zfgbjgcpel1058[address] [place], [place] [address]Dr. Tadeo Smyth Urea nitrogen/Creatinine [Mass ratio] 9.5 mg/mg Normal [facility] Comment on above: Performed By: #### C MP ####[facility] Hezkagnbkj[address] [place], [place] [address]Dr. Tadeo Smyth XR KUB 1 VIEWon 03-29-2022 XR KUB 1 VIEW Normal [facility] CBC AUTO DIFFon 03-28-2022 BASO # 0.0 103/ul Normal 0.0-0.1 [facility] Comment on above: Performed By: #### C BC ####[facility] Hirgeoigoz5303[address] [place], [place] [address]Dr. Tadeo Smyth Basophils/100 WBC (Bld) 0.7 % Normal 0.2-2.0 [facility] Comment on above: Performed By: #### C BC ####[facility] Qnhlnprzbr[address] [place], [place] [id number]. Tadeo Smyth EO # 0.2 103/ul Normal 0.0-0.7 [facility] Comment on above: Performed By: #### C BC ####[facility] Lqhthvkfkp1045[address] [place], [place] [address]Dr. Tadeo Smyth Eosinophils/100 WBC (Bld) 3.3 % Normal 0.9-7.0 [facility] Comment on above: Performed By: #### C BC ####[facility] Kidiouilaj6666[address] [place], [place] [address]Dr. Tadeo Smyth Erythrocyte distribution width (RBC) [Ratio] 13.2 % Normal 11.0-15.0 [facility] Comment on above: Performed By: #### C BC ####[facility] Gvxkvtqhot845[address] [place], [place] [address]Dr. Tadeo Smyth Hematocrit (Bld) [Volume fraction] 34.2 % Critically low 36.0-48.0 [facility] Comment on above: Performed By: #### C BC ####[facility] Rczlycknrw3939[address] [place], [place] [address]Dr. Tadeo Smyth Hemoglobin (Bld) [Mass/Vol] 10.8 g/dL Critically low 12.0-16.0 [facility] Comment on above: Performed By: #### C BC ####[facility] Erfxgcunzo3156[address] [place], [place] [address]Dr. Tadeo Smyth IG # 0.01 10e3/ul Normal 0.00-0.03 [facility] Comment on above: Performed By: #### C BC ####[facility] Tpjowgwqzn8833[address] [place], [place] [address]Dr. Tadeo Smyth IG % 0.2 % Normal 0.0-0.5 [facility] Comment on above: Performed By: #### C BC ####[facility] Xtbkctcaen1724[address] [place], [place] [address]Dr. Tadeo Smyth LYMPH # 1.3 103/ul Normal 1.2-3.8 [facility] Comment on above: Performed By: #### C BC ####[facility] Iwbihongxs5165 [place] [address]Dr. Tadeo Smyth Lymphocytes/100 WBC (Bld) 28.4 % Normal 20.5-60.0 [facility] Comment on above: Performed By: #### C BC ####[facility] Okvkodibis2272 [place] [address]Dr. Tadeo Smyth MANUAL DIFF REQ NO Normal [facility] Comment on above: Performed By: #### C BC ####[facility] Erynqlwfnw2218 [place] [address]Dr. Tadeo Smyth MCH (RBC) [Entitic mass] 28.3 pg Normal 26.7-34.0 [facility] Comment on above: Performed By: #### C BC ####[facility] Kufatrnmlq668[address] [place], [place] [address]Dr. Tadeo Smyth MCHC (RBC) [Mass/Vol] 31.6 g/dL Normal 29.9-35.2 [facility] Comment on above: Performed By: #### C BC ####[facility] Lwlqpfaowv4442[address] [place], [place] [address]Dr. Tadeo Smyth MCV (RBC) [Entitic vol] 89.5 fL Normal 81.0-99.0 [facility] Comment on above: Performed By: #### C BC ####[facility] Qudaqfxspd8549 [place] [address]Dr. Tadeo Smyth MONO # 0.3 103/ul Normal 0.3-0.8 [facility] Comment on above: Performed By: #### C BC ####[facility] Fhtdzudxfj9189[address] [place], [place] [address]Dr. Tadeo Smyth Monocytes/100 WBC (Bld) 5.5 % Normal 1.7-12.0 [facility] Comment on above: Performed By: #### C BC ####[facility] Rnskuporow4176[address] [place], [place] [address]Dr. Tadeo Smyth NEUT # 2.8 103/ul Normal 1.4-6.5 [facility] Comment on above: Performed By: #### C BC ####[facility] Hidqlthslb6960 [place] [id number]. Tadeo Smyth Neutrophils/100 WBC (Bld) 61.9 % Normal 43.0-75.0 [facility] Comment on above: Performed By: #### C BC ####[facility] Dvzgrehhij6875 [place] [address]Dr. Tadeo Smyth Platelet mean volume (Bld) [Entitic vol] 9.1 fL Critically low 9.5-13.5 [facility] Comment on above: Performed By: #### C BC ####[facility] Jcmxerwzyd2530 [place] [address]Dr. Tadeo Smyth PLT 327 103/ul Normal 150-450 [facility] Comment on above: Performed By: #### C BC ####[facility] Xwchggyjff2598 [place] [address]Dr. Tadeo Smyth RBC 3.82 106/ul Critically low 4.20-5.40 [facility] Comment on above: Performed By: #### C BC ####[facility] Yuigtpdmnq2369 [place] [address]Dr. Tadeo Smyth WBC 4.5 103/ul Normal 4.0-11.0 [facility] Comment on above: Performed By: #### C BC ####[facility] Gedggizaxy1414 [place] [address]DrNeo Tadeo Smyth POINT OF CARE GLUCOSEon 03-06 Glucose [Mass/Vol] 84 mg/dL Normal 74-106 [facility] Comment on above: Performed By: #### P OCGLUC ####[facility] Ejwtekynkv2930 [place] [address]DrNeo Tadeo Haja PROF 14(COMP METB)on 022 Albumin [Mass/Vol] 2.9 g/dL Critically low 3.4-5.0 [facility] Comment on above: Performed By: #### C MP ####[facility] Gqurscmdzz5053 [place] [address]Dr. Tadeo Smyth Albumin/Globulin [Mass ratio] 0.9 {ratio} Normal [facility] Comment on above: Performed By: #### C MP ####[facility] Fhoekdjirk5647 [place] [address]Dr. Tadeo Smyth ALP [Catalytic activity/Vol] 119 U/L Critically high 46-116 [facility] Comment on above: Performed By: #### C MP ####[facility] Brvklcvvjm4893 [place] [address]Dr. Tadeo Haja ALT [Catalytic activity/Vol] 15 U/L Normal 14-59 [facility] Comment on above: Performed By: #### C MP ####[facility] Ygzgagmlkt2943 [place] [address]Dr. Margotnicole Haja Anion gap [Moles/Vol] 7.9 mmol/L Normal [facility] Comment on above: Performed By: #### C MP ####[facility] Jbtchuanty[address] [place], [place] [address]Dr. Tadeo Haja AST [Catalytic activity/Vol] 11 U/L Critically low 15-37 [facility] Comment on above: Performed By: #### C MP ####[facility] Mvqrvolkzz4415[address] [place], [place] [address]Dr. Tadeo Haja Bilirubin [Mass/Vol] 0.4 mg/dL Normal 0.2-1.0 [facility] Comment on above: Performed By: #### C MP ####[facility] Lqiulxjugr5046[address] [place], [place] [address]Dr. Tadeo Haja Calcium [Mass/Vol] 8.7 mg/dL Normal 8.5-10.1 [facility] Comment on above: Performed By: #### C MP ####[facility] Ierfbpmuau3626[address] [place], [place] [address]Dr. Margotnicole Smyth Chloride [Moles/Vol] 109 mmol/L Critically high 98-107 [facility] Comment on above: Performed By: #### C MP ####[facility] Zqzlwwlyiv6826[address] [place], [place] [address]Dr. Tadeo Haja CO2 [Moles/Vol] 27.9 mmol/L Normal 21.0-32.0 [facility] Comment on above: Performed By: #### C MP ####[facility] Bkevsctvhs7285 [place] [address]Dr. Tadeo Smyth Creatinine [Mass/Vol] 0.75 mg/dL Normal 0.55-1.02 [facility] Comment on above: Performed By: #### C MP ####[facility] Cqwocwqpnr5576 [place] [address]Dr. Tadeo Haja EGFR-AF KENYAN >60 Normal >=60 [facility] Comment on above: Performed By: #### C MP ####[facility] Hjhhdhmjgi033[address] [place], [place] [address]Dr. Tadeo Smyth EGFR-NON AF KENYAN >60 Normal >=60 [facility] Comment on above: Performed By: #### C MP ####[facility] Fjuqavaeyc497[address] [place], [place] [address]Dr. Tadeo Smyth Globulin (S) [Mass/Vol] 3.3 g/dL Normal [facility] Comment on above: Performed By: #### C MP ####[facility] Ctjldkbsmh7269[address] [place], [place] [address]Dr. Tadeo Smyth Glucose [Mass/Vol] 95 mg/dL Normal 74-106 [facility] Comment on above: Performed By: #### C MP ####[facility] Vyeiumetrg075[address] [place], [place] [address]Dr. Tadeo Smyth Potassium [Moles/Vol] 3.8 mmol/L Normal 3.5-5.1 [facility] Comment on above: Performed By: #### C MP ####[facility] Sicjtuteon101[address] [place], [place] [address]Dr. Tadeo Smyth Protein [Mass/Vol] 6.2 g/dL Critically low 6.4-8.2 [facility] Comment on above: Performed By: #### C MP ####[facility] Erkuapusio092[address] [place], [place] [address]Dr. Tadeo Smyth Sodium [Moles/Vol] 141 mmol/L Normal 136-145 [facility] Comment on above: Performed By: #### C MP ####[facility] Ndoyatlikm4096[address] [place], [place] [address]Dr. Tadeo Smyth Urea nitrogen [Mass/Vol] 8.0 mg/dL Normal 7.0-18.0 [facility] Comment on above: Performed By: #### C MP ####[facility] Qkcpbmcczn1654[address] [place], [place] [address]Dr. Tadeo Smyth Urea nitrogen/Creatinine [Mass ratio] 10.7 mg/mg Normal [facility] Comment on above: Performed By: #### C MP ####[facility] Fgflyadqcv4723[address] [place], [place] [address]Dr. Tadeo Smyth UA (CLEAN/CATCH) NEGATIVE CHECKER/MICRO I F IND.on 03-28-2022 Bilirubin Ql (U) Negative Normal NEGATIVE [facility] Comment on above: Performed By: #### U ACSBLANE ICRO ####[facility] Ibqobtfqyc395[address] [place], [place] [address]Dr. Tadeo Smyth Clarity (U) SL CLOUDY Abnormal CLEAR [facility] Comment on above: Performed By: #### U MARE ICRO ####[facility] Oeuvmfgobr1817[address] [place], [place] [address]Dr. Tadeo Smyth Color (U) LT. YELLOW Normal YELLOW [facility] Comment on above: Performed By: #### U ACSBLANE ICRO ####[facility] Dscycenbir0689[address] [place], [place] [address]Dr. Tadeo Smyth Glucose Ql (U) Negative Normal NEGATIVE [facility] Comment on above: Performed By: #### U ACSBLANE ICRO ####[facility] Mphflnhpds5235[address] [place], [place] [address]Dr. Tadeo Smyth Hemoglobin Ql (U) TRACE-INTACT Abnormal NEGATIVE [facility] Comment on above: Performed By: #### U ACSBLANE, UMICRO ####[facility] Cdvxtwoujl9159[address] [place], [place] [address]Dr. Tadeo Smyth Ketones Ql (U) TRACE Abnormal NEGATIVE [facility] Comment on above: Performed By: #### U ACSBLANE, UMICRO ####[facility] Bpdkprspwe6087 [place] [address]Dr. Tadeo Smyth LEUKOCYTES Negative Normal NEGATIVE [facility] Comment on above: Performed By: #### U ACSBLANE, UMICRO ####[facility] Mpxyobzpga9869 [place] [address]Dr. Tadeo Smyth Nitrite Ql (U) Negative Normal NEGATIVE [facility] Comment on above: Performed By: #### U ACSBLANE, UMICRO ####[facility] Gxyfsgrsty3503 [place] [address]Dr. Tadeo Smyth pH (U) 6.5 [pH] Normal 5-9 [facility] Comment on above: Performed By: #### U ACSBLANE, UMICRO ####[facility] Ssbkjtbrku[address] [place], [place] [address]Dr. Tadeo Smyth SPEC GRAVITY 1.015 Normal 1.005-<=1.[address] [place] [address] Comment on above: Performed By: #### U ACSBLANE ICRO ####[facility] Venasqlyva5129 [place] [address]Dr. Tadeo Smyth UA PROTEIN Negative Normal NEGATIVE/ TRACE [facility] Comment on above: Performed By: #### U ACSBLANE, UMICRO ####[facility] Ahbnonqzyc9467 [place] [address]Dr. Tadeo Smyth UR MICRO IND INDICATED Normal [facility] Comment on above: Performed By: #### U ACSBLANE UMICRO ####[facility] Qxtkurllvn9218 [place] [address]Dr. Tadeo Smyth Urobilinogen Qn (U) 0.2 {Benito'U}/dL Normal 0.2 - 1. 0 [facility] Comment on above: Performed By: #### U ACSBLANE, UMICRO ####[facility] Ilolprwodf2606 [place] [address]Dr. Tadeo Smyth URINE MICROSCOPIC ONLYon BACTERIA MODERATE Abnormal NONE SEEN [facility] Comment on above: Performed By: #### U ACSBLANE, UMICRO ####[facility] Cwvufvhxmj8873 [place] [address]Dr. Tadeo Smyth Bacteria identified Cx Nom (U) INDICATED Normal [facility] Comment on above: Performed By: #### U ACSBLANE, UMICRO ####[facility] Zewslrurua2726 [place] [address]Dr. Tadeo Smyth CAST NONE SEEN Normal NONE SEEN [facility] Comment on above: Performed By: #### U ACSBLANE, UMICRO ####[facility] Mnsmnqfmzn8876 [place] [address]Dr. Tadeo Smyth Crystals LM Nom (Urine sed) NONE SEEN Normal NONE SEEN [facility] Comment on above: Performed By: #### U ACSBLANE, ICRO ####[facility] Akhbgkdahc0288 [place] [address]Dr. Tadeo Smyth Epithelial cells LM Ql (Urine sed) RARE Normal NONE SEEN /RARE [facility] Comment on above: Performed By: #### U ACSBLANE ICRO ####[facility] Eucafizgwo9409 [place] [address]Dr. Tadeo Smyth MUCOUS NONE SEEN Normal NONE SEEN [facility] Comment on above: Performed By: #### U ACSBLANE, ICRO ####[facility] Kzwpwmkyqe4107 [place] [address]Dr. Tadeo Smyth RBC NONE SEEN Abnormal 0-2 [facility] Comment on above: Performed By: #### U MARE ICRO ####[facility] Qmaamlogge1238 [place] [address]Dr. Tadeo Smyth WBC 2-5 Abnormal NONE SEEN [facility] Comment on above: Performed By: #### U ACSBLANE [facility] ####[facility] Muixtwwdbl3658 [place] [address]Dr. Tadeo Smyth XR ABD FLAT UP_PA Kasey 03-28 XR ABD FLAT UP_PA CH Normal [facility] CBC AUTO DIFFon 03-27-2022 BASO # 0.0 103/ul Normal 0.0-0.1 [facility] Comment on above: Performed By: #### C BC ####[facility] Hwwlmxedjq1006 [place] [address]Dr. Tadeo Smyth Basophils/100 WBC (Bld) 0.5 % Normal 0.2-2.0 [facility] Comment on above: Performed By: #### C BC ####[facility] Zjpuvshcqo705[address] [place], [place] [address]Dr. Tadeo Smyth EO # 0.2 103/ul Normal 0.0-0.7 [facility] Comment on above: Performed By: #### C BC ####[facility] Dxkghxgawr4644[address] [place], [place] [address]Dr. Tadeo Smyth Eosinophils/100 WBC (Bld) 3.2 % Normal 0.9-7.0 [facility] Comment on above: Performed By: #### C BC ####[facility] Uyroskbpry8225[address] [place], [place] [address]Dr. Tadeo Smyth Erythrocyte distribution width (RBC) [Ratio] 13.1 % Normal 11.0-15.0 [facility] Comment on above: Performed By: #### C BC ####[facility] Uohxoddejl926[address] [place], [place] [address]Dr. Tadeo Smyth Hematocrit (Bld) [Volume fraction] 34.8 % Critically low 36.0-48.0 [facility] Comment on above: Performed By: #### C BC ####[facility] Obbfcdliki647[address] [place], [place] [address]Dr. Tadeo Smyth Hemoglobin (Bld) [Mass/Vol] 11.3 g/dL Critically low 12.0-16.0 [facility] Comment on above: Performed By: #### C BC ####[facility] Twttntsldm8645[address] [place], [place] [address]Dr. Tadeo Smyth IG # 0.01 10e3/ul Normal 0.00-0.03 [facility] Comment on above: Performed By: #### C BC ####[facility] Tysbeunkja[address] [place], [place] [address]Dr. Tadeo Smyth IG % 0.2 % Normal 0.0-0.5 [facility] Comment on above: Performed By: #### C BC ####[facility] Simfnkmfxp3301 [place] [id number]. Tadeo Haja LYMPH # 1.6 103/ul Normal 1.2-3.8 [facility] Comment on above: Performed By: #### C BC ####[facility] Isgiytfswq8031 [place] [id number]. Tadeo Smyth Lymphocytes/100 WBC (Bld) 29.1 % Normal 20.5-60.0 [facility] Comment on above: Performed By: #### C BC ####[facility] Ffouvyhvin9748 [place] [address]Dr. Tadeo Smyth MANUAL DIFF REQ NO Normal [facility] Comment on above: Performed By: #### C BC ####[facility] Ycmnedwwft0657 [place] [phone]. Tadeo Smyth MCH (RBC) [Entitic mass] 29.1 pg Normal 26.7-34.0 [facility] Comment on above: Performed By: #### C BC ####[facility] Hxhzttdmgx6743 [place] [phone]. Margotnicole Smyth MCHC (RBC) [Mass/Vol] 32.5 g/dL Normal 29.9-35.2 [facility] Comment on above: Performed By: #### C BC ####[facility] Vltgrdqixq8282 [place] [phone]. Tadeo Smyth MCV (RBC) [Entitic vol] 89.7 fL Normal 81.0-99.0 [facility] Comment on above: Performed By: #### C BC ####[facility] Ztmujyffcb8223 [place] [id number] Smyth MONO # 0.3 103/ul Normal 0.3-0.8 [facility] Comment on above: Performed By: #### C BC ####[facility] Rxxptlaekf3896 [place] [id number]. Tadeo Smyth Monocytes/100 WBC (Bld) 5.7 % Normal 1.7-12.0 [facility] Comment on above: Performed By: #### C BC ####[facility] Xwhjogdiyk8911 [place] [phone]. Tadoe Smyth NEUT # 3.5 103/ul Normal 1.4-6.5 [facility] Comment on above: Performed By: #### C BC ####[facility] Jeunmdpmol4000 [place] [id number]. Tadeo Smyth Neutrophils/100 WBC (Bld) 61.3 % Normal 43.0-75.0 [facility] Comment on above: Performed By: #### C BC ####[facility] Zlwqkksckg0503 [place] [phone]. Tadeo Smyth Platelet mean volume (Bld) [Entitic vol] 9.1 fL Critically low 9.5-13.5 [facility] Comment on above: Performed By: #### C BC ####[facility] Vkndxrggwm6753 [place] [phone]. Tadeo Smyth PLT 355 103/ul Normal 150-450 [facility] Comment on above: Performed By: #### C BC ####[facility] Dohmgrjxnn2758 [place] [phone]. Tadeo Smyth RBC 3.88 106/ul Critically low 4.20-5.40 [facility] Comment on above: Performed By: #### C BC ####[facility] Rjjcdwunhb9853 [place] [phone]. Tadeo Smyth WBC 5.6 103/ul Normal 4.0-11.0 [facility] Comment on above: Performed By: #### C BC ####[facility] Asoetjquwk0817 [place] [phone]. Tadeo Smyth CT ABD/PELV W CONon 03-27-20 CT ABD/PELV W CON Normal [facility] CT ABD/PELVIS WO CONon 03-27 CT ABD/PELVIS WO CON Normal [facility]06 SARS-CoV-2 (COVID-19) RNA CHEN+probe Ql (Unsp spec) Not detected Normal NOT DETECTED [facility] Comment on above: Result Comment: When diagnostic [...] for this test is supported by the Junior Financial Analyst of Health and Human Service's declaration that [...] Performed By: #### C VDTB ####[facility] Hlfhenvuzx5054[address] [place], [place] [address]Dr. Tadeo Smyth ER URINE PROFILEon 2 Bilirubin Ql (U) Negative Normal NEGATIVE [facility] Comment on above: Performed By: #### Matthew FRANCISCO PREGU ####[facility] Jgguwjfxtn1352[address] [place], [place] [address]Dr. Tadeo Smyth Clarity (U) CLEAR Normal CLEAR [facility] Comment on above: Performed By: #### E NOLAN, PREGU ####[facility] Dxikhlqbbd836[address] [place], [place] [address]Dr. Tadeo Smyth Color (U) LT. YELLOW Normal YELLOW [facility] Comment on above: Performed By: #### E NOLAN, PREGU ####[facility] Giwjnzjogf62[address] [place], [place] [address]Dr. Tadeo Smyth ERUAHD A micrscopic examina tion will be performed if indicated. Normal [facility] Comment on above: Performed By: #### E RUR, PREGU ####[facility] Hxhratgtpk9455[address] [place], [place] [address]Dr. Tadeo Smyth Glucose Ql (U) Negative Normal NEGATIVE [facility] Comment on above: Performed By: #### E RUR, PREGU ####[facility] Llbzmdkegg1247[address] [place], [place] [address]Dr. Margotnicole Smyth Hemoglobin Ql (U) SMALL Abnormal NEGATIVE [facility] Comment on above: Performed By: #### E RUR, PREGU ####[facility] Ahjqqfmgut12[address] [place], [place] [address]Dr. Margotnicole Smyth Ketones Ql (U) TRACE Abnormal NEGATIVE [facility] Comment on above: Performed By: #### E RUR, PREGU ####[facility] Lduchletdd5379[address] [place], [place] [address]Dr. Margotnicole Smyth LEUKOCYTES Negative Normal NEGATIVE [facility] Comment on above: Performed By: #### E RUR, PREGU ####[facility] Kzuzlteqro18[address] [place], [place] [address]Dr. Tadeo Smyth Nitrite Ql (U) Negative Normal NEGATIVE [facility] Comment on above: Performed By: #### E RUR, PREGU ####[facility] Peljctrcyb[address] [place] [address]Dr. Margotnicole Smyth pH (U) 6.0 [pH] Normal 5-9 [facility] Comment on above: Performed By: #### E RUR, PREGU ####[facility] Cdmrcaznel[address] [place], [place] [address]Dr. Tadeo Smyth SPEC GRAVITY >=1.030 Abnormal 1.005-<=1.0 25 [facility] Comment on above: Performed By: #### E RUR, PREGU ####[facility] Tczayerlhr[address] [place], [place] [address]Dr. Tadeo Smyth UA PROTEIN Negative Normal NEGATIVE/ TRACE [facility] Comment on above: Performed By: #### E RUR, PREGU ####[facility] Vmcqewvnqe[address] [place], [place] [address]Dr. Tadeo Smyth UR MICRO IND NOT INDICATED Normal [facility] Comment on above: Performed By: #### E RUR, PREGU ####[facility] Djzfbmgpgj[address] [place] [address]Dr. Tadeo Smyth Urobilinogen Qn (U) 0.2 {Benito'U}/dL Normal 0.2 - 1. 0 [facility] Comment on above: Performed By: #### E RUR, PREGU ####[facility] Cekqckcnlk79[address] [place] [address]Dr. Tadeo Smyth LIPASEon 03-27-2022 Lipase [Catalytic activity/Vol] 126.0 U/L Normal 73.0-393.0 [facility] Comment on above: Performed By: #### L IPA, CMP ####[facility] Cimebxhmnp8314 [place] [address]Dr. Tadeo Smyth URon 03-27-2022 , QUAL Negative Normal NEGATIVE [facility] Comment on above: Performed By: #### Matthew FRANCISCO, PREGU ####[facility] Ysholwkura[address] [place], [place] [address]Dr. Tadeo Smyth PROF 14(COMP METB)on 022 Albumin [Mass/Vol] 3.6 g/dL Normal 3.4-5.0 [facility] Comment on above: Performed By: #### L IPA, CMP ####[facility] Mcauymqxdh9[address] [place], [place] [address]Dr. Tadeo Smyth Albumin/Globulin [Mass ratio] 1.1 {ratio} Normal [facility] Comment on above: Performed By: #### L IPA, CMP ####[facility] Gusvijtalq[address] [place], [place] [address]Dr. Tadeo Smyth ALP [Catalytic activity/Vol] 139 U/L Critically high 46-116 [facility] Comment on above: Performed By: #### L IPA, CMP ####[facility] Ukyanhpjhi[address] [place], [place] [address]Dr. Tadeo Smyth ALT [Catalytic activity/Vol] 18 U/L Normal 14-59 [facility] Comment on above: Performed By: #### L IPA, CMP ####[facility] Jwgcziukzy[address] [place], [place] [address]Dr. Tadeo Smyth Anion gap [Moles/Vol] 10.7 mmol/L Normal [facility] Comment on above: Performed By: #### L IPA, CMP ####[facility] Vnyksxlums[address] [place], [place] [address]Dr. Tadeo Smyth AST [Catalytic activity/Vol] 11 U/L Critically low 15-37 [facility] Comment on above: Performed By: #### L IPA, CMP ####[facility] Iulhnnoquy[address] [place], [place] [address]Dr. Tadeo Smyth Bilirubin [Mass/Vol] 0.2 mg/dL Normal 0.2-1.0 [facility] Comment on above: Performed By: #### L IPA, CMP ####[facility] Tkwjzgjhyb[address] [place], [place] [address]Dr. Tadeo Smyth Calcium [Mass/Vol] 9.0 mg/dL Normal 8.5-10.1 [facility] Comment on above: Performed By: #### L IPA, CMP ####[facility] Jrfgrmuwyh6823[address] [place], [place] [address]Dr. Tadeo Smyth Chloride [Moles/Vol] 106 mmol/L Normal 98-107 [facility] Comment on above: Performed By: #### L IPA, CMP ####[facility] Pqhkywzzev[address] [place], [place] [address]Dr. Tadeo Smyth CO2 [Moles/Vol] 26.9 mmol/L Normal 21.0-32.0 [facility] Comment on above: Performed By: #### L IPA, CMP ####[facility] Dsafennfef[address] [place], [place] [address]Dr. Tadeo Smyth Creatinine [Mass/Vol] 0.84 mg/dL Normal 0.55-1.02 [facility] Comment on above: Performed By: #### L IPA, CMP ####[facility] Qqaaqrguph23[address] [place], [place] [address]Dr. Margotnicole Haja EGFR-AF KENYAN >60 Normal >=60 [facility] Comment on above: Performed By: #### L IPA, CMP ####[facility] Oirmexyllb[address] [place], [place] [address]Dr. Tadeo Smyth EGFR-NON AF KENYAN >60 Normal >=60 [facility] Comment on above: Performed By: #### L IPA, CMP ####[facility] Mprnvtrfox9675[address] [place], [place] [address]Dr. Tadeo Smyth Globulin (S) [Mass/Vol] 3.4 g/dL Normal [facility] Comment on above: Performed By: #### L IPA, CMP ####[facility] Rdurjqlbse3548[address] [place], [place] [address]Dr. Tadeo Smyth Glucose [Mass/Vol] 96 mg/dL Normal 74-106 [facility] Comment on above: Performed By: #### L IPA, CMP ####[facility] Roqkgoxrso8878[address] [place], [place] [address]Dr. Tadeo Smyth Potassium [Moles/Vol] 3.6 mmol/L Normal 3.5-5.1 [facility] Comment on above: Performed By: #### L IPA, CMP ####[facility] Kqzowbltwu[address] [place], [place] [address]Dr. Tadeo Smyth Protein [Mass/Vol] 7.0 g/dL Normal 6.4-8.2 [facility] Comment on above: Performed By: #### L IPA, CMP ####[facility] Miqqwqefag[address] [place], [place] [address]Dr. Tadeo Smyth Sodium [Moles/Vol] 140 mmol/L Normal 136-145 [facility] Comment on above: Performed By: #### L IPA, CMP ####[facility] Fzycalupfv99[address] [place], [place] [address]Dr. Tadeo Smyth Urea nitrogen [Mass/Vol] 23.0 mg/dL Critically high 7.0-18.0 [facility] Comment on above: Performed By: #### L IPA, CMP ####[facility] Wnmzeixdbn04[address] [place], [place] [address]Dr. Tadeo Smyth Urea nitrogen/Creatinine [Mass ratio] 27.4 mg/mg Normal [facility] Comment on above: Performed By: #### L IPA, CMP ####[facility] Pmnsfiosnt9336[address] [place], [place] [address]Dr. Tadeo Smyth GROUP A STREP CULTUREon 06-0 S. pyogenes Ag Ql (Unsp spec) Normal [facility] Comment on above: Performed By: #### G RASTCX, SSCRN ####[facility] Nyjgpgxzpy90[address] [place], [place] [address]Dr. Tadeo Smyth AMYLASEon 02-02-2022 Amylase [Catalytic activity/Vol] 37 U/L Normal 25-115 [facility] Comment on above: Performed By: #### C MP, VIJI, LIPA ####[facility] Nhleeaiwvr18[address] [place], [place] [address]Dr. Tadeo Smyth CBC AUTO DIFFon 02-02-2022 BASO # 0.0 103/ul Normal 0.0-0.1 [facility] Comment on above: Performed By: #### C BC ####[facility] Drjekbllci813[address] [place], [place] [address]Dr. Margotnicole Smyth Basophils/100 WBC (Bld) 0.2 % Normal 0.2-2.0 [facility] Comment on above: Performed By: #### C BC ####[facility] Lxzdgnvxus27[address] [place], [place] [address]Dr. Tadeo Smyth EO # 0.0 103/ul Normal 0.0-0.7 [facility] Comment on above: Performed By: #### C BC ####[facility] Pqfrunfwfi63[address] [place], [place] [address]Dr. Tadeo Haja Eosinophils/100 WBC (Bld) 0.2 % Critically low 0.9-7.0 [facility] Comment on above: Performed By: #### C BC ####[facility] Whcbqhvrnd5[address] [place], [place] [address]Dr. Tadeo Smyth Erythrocyte distribution width (RBC) [Ratio] 13.4 % Normal 11.0-15.0 [facility] Comment on above: Performed By: #### C BC ####[facility] Ewqhaidoht4[address] [place], [place] [address]Dr. Tadeo Smyth Hematocrit (Bld) [Volume fraction] 36.8 % Normal 36.0-48.0 [facility] Comment on above: Performed By: #### C BC ####[facility] Fvnnxtebjy57[address] [place] [id number]. Tadeo Smyth Hemoglobin (Bld) [Mass/Vol] 11.6 g/dL Critically low 12.0-16.0 [facility] Comment on above: Performed By: #### C BC ####[facility] Fjkkzmfoab26[address] [place] [id number]. Tadeo Smyth IG # 0.08 10e3/ul Critically high 0.00-0.03 [facility] Comment on above: Performed By: #### C BC ####[facility] Ntzmoqwthj[address] [place] [address]Dr. Tadeo Smyth IG % 0.6 % Critically high 0.0-0.5 [facility] Comment on above: Performed By: #### C BC ####[facility] Vkjiauviwv060[address] [place] [address]Dr. Tadeo Smyth LYMPH # 0.9 103/ul Critically low 1.2-3.8 [facility] Comment on above: Performed By: #### C BC ####[facility] Rqaekvnkyu6346 [place] [address]Dr. Tadeo Smyth Lymphocytes/100 WBC (Bld) 6.9 % Critically low 20.5-60.0 [facility] Comment on above: Performed By: #### C BC ####[facility] Iyexdhadlo[address] [place] [address]Dr. Tadeo Smyth MANUAL DIFF REQ NO Normal [facility] Comment on above: Performed By: #### C BC ####[facility] Cxhbxzcele5076 [place] [id number]. Tadeo Smyth MCH (RBC) [Entitic mass] 28.9 pg Normal 26.7-34.0 [facility] Comment on above: Performed By: #### C BC ####[facility] Htnyaxddpo1556 [place] [id number]. Tadeo Smyth MCHC (RBC) [Mass/Vol] 31.5 g/dL Normal 29.9-35.2 [facility] Comment on above: Performed By: #### C BC ####[facility] Assqikoqcw8824 [place] [id number]. Tadeo Smyth MCV (RBC) [Entitic vol] 91.8 fL Normal 81.0-99.0 [facility] Comment on above: Performed By: #### C BC ####[facility] Rfiltrvazm8599 [place] [id number]. Tadeo Smyth MONO # 0.9 103/ul Critically high 0.3-0.8 [facility] Comment on above: Performed By: #### C BC ####[facility] Tzhhusztiq8280 [place] [id number]. Tadeo Smyth Monocytes/100 WBC (Bld) 6.9 % Normal 1.7-12.0 [facility] Comment on above: Performed By: #### C BC ####[facility] Ozvmuhbwwe[address] [place], [place] [address]Dr. Tadeo Smyth NEUT # 11.6 103/ul Critically high 1.4-6.5 [facility] Comment on above: Performed By: #### C BC ####[facility] Mirylyweyh[address]86 [place] [id number]. Tadeo Smyth Neutrophils/100 WBC (Bld) 85.2 % Critically high 43.0-75.0 [facility] Comment on above: Performed By: #### C BC ####[facility] Eqyzifpfgq6004 [place] [phone]. Tadeo Smyth Platelet mean volume (Bld) [Entitic vol] 8.9 fL Critically low 9.5-13.5 [facility] Comment on above: Performed By: #### C BC ####[facility] Whcfrmtqth2532 [place] [id number]. Tadeo Smyth PLT 331 103/ul Normal 150-450 [facility] Comment on above: Performed By: #### C BC ####[facility] Lxccoceuhu9005 [place] [id number]. Tadeo Haja RBC 4.01 106/ul Critically low 4.20-5.40 [facility] Comment on above: Performed By: #### C BC ####[facility] Iiekehjbtp8396 [place] [phone]. Tadeo Smyth WBC 13.7 103/ul Critically high 4.0-11.0 [facility] Comment on above: Performed By: #### C BC ####[facility] Vxqwtottqa[address] [place], [place] [address]If. Tadeo Smyth Covid-19 PCR ([facility])on 01-05 SARS-CoV-2 (COVID-19) RNA CHEN+probe Ql (Unsp spec) Not detected Normal NOT DETECTED [facility] Comment on above: Result Comment: When diagnostic [...] for this test is supported by the [place] of Health and Human Service's declaration that [...] Performed By: #### C VDTBH ####[facility] Qnjunwesfz3038 [place] [phone]. Tadeo Smyth LIPASEon 02-02-2022 Lipase [Catalytic activity/Vol] 33.0 U/L Critically low 73.0-393.0 [facility] Comment on above: Performed By: #### C VIJI GARCIA LIPA ####[facility] O[address]ub[address]us74[address] [place], [place] [address]Ac. Tadeo Smyth MONOon 02-02-2022 Monocytes (Bld) [#/Vol] Negative Normal NEGATIVE [facility] Comment on above: Performed By: #### M JESSICA ####[facility] Ldmfoznmqy5475 [place] [address]Dr. Tadeo Smyth PROF 14(COMP METB)on 022 Albumin [Mass/Vol] 3.1 g/dL Critically low 3.4-5.0 [facility] Comment on above: Performed By: #### C MP, VIJI, LIPA ####[facility] Xklgusojdj3370 [place] [address]Dr. Tadeo Smyth Albumin/Globulin [Mass ratio] 0.9 {ratio} Normal [facility] Comment on above: Performed By: #### C MP, VIJI, LIPA ####[facility] Mdayfjmwzm[address] [place], [place] [address]Dr. Tadeo Smyth ALP [Catalytic activity/Vol] 131 U/L Critically high 46-116 [facility] Comment on above: Performed By: #### C MP, VIIJ, LIPA ####[facility] Exwbwkfrvo67[address] [place], [place] [address]Dr. Tadeo Smyth ALT [Catalytic activity/Vol] 25 U/L Normal 14-59 [facility] Comment on above: Performed By: #### C MP, VIJI, LIPA ####[facility] Ugxozuuspj17[address] [place], [place] [address]Dr. Tadeo Smyth Anion gap [Moles/Vol] 10.0 mmol/L Normal [facility] Comment on above: Performed By: #### C MP, VIJI, LIPA ####[facility] Zbkokjtdtg[address] [place], [place] [address]Dr. Tadeo Smyth AST [Catalytic activity/Vol] 19 U/L Normal 15-37 [facility] Comment on above: Performed By: #### C MP, VIJI, LIPA ####[facility] Ppusffhwih[address] [place], [place] [address]Dr. Tadeo Smyth Bilirubin [Mass/Vol] 0.6 mg/dL Normal 0.2-1.0 [facility] Comment on above: Performed By: #### C MP, VIJI, LIPA ####[facility] Rpwhkmsefq[address] [place], [place] [address]Dr. Tadeo Smyth Calcium [Mass/Vol] 8.2 mg/dL Critically low 8.5-10.1 [facility] [place] [facility] Comment on above: Performed By: #### C VIJI GARCIA, LIPA ####[facility] Viiohnubds2894 [place] [address]Dr. Tadeo Smyth Chloride [Moles/Vol] 106 mmol/L Normal 98-107 [facility] Comment on above: Performed By: #### C JOSE VIJI, LIPA ####[facility] Hgrygjuunp4224 [place] [address]Dr. Tadeo Smyth CO2 [Moles/Vol] 25.5 mmol/L Normal 21.0-32.0 [facility] Comment on above: Performed By: #### C JOSE VIJI, LIPA ####[facility] Pmxcrajakg[address] [place], [place] [address]Dr. Tadeo Smyth Creatinine [Mass/Vol] 0.78 mg/dL Normal 0.55-1.02 [facility] Comment on above: Performed By: #### C JOSE VIJI, LIPA ####[facility] Sifcxhnouj38[address] [place] [address]Dr. Tadeo Smyth EGFR-AF KENYAN >60 Normal >=60 [facility] Comment on above: Performed By: #### C JOSE VIJI, LIPA ####[facility] Mbfdipprni[address] [place], [place] [address]Dr. Tadeo Smyth EGFR-NON AF KENYAN >60 Normal >=60 [facility] Comment on above: Performed By: #### C JOSE, VIJI, LIPA ####[facility] Kqatlhyogr3030 [place] [address]Dr. Tadeo Smyth Globulin (S) [Mass/Vol] 3.6 g/dL Normal [facility] Comment on above: Performed By: #### C MP, VIJI, LIPA ####[facility] Jnaganoasz8590 [place] [address]Dr. Tadeo Smyth Glucose [Mass/Vol] 110 mg/dL Critically high 74-106 [facility] Comment on above: Performed By: #### C JOSE, VIJI, LIPA ####[facility] Frmhqjjllu7272 [place] [address]Dr. Tadeo Smyth Potassium [Moles/Vol] 3.5 mmol/L Normal 3.5-5.1 [facility] Comment on above: Performed By: #### C MP, VIJI, LIPA ####[facility] Zxxzttksnv5033 [place] [address]Dr. Tadeo Smyth Protein [Mass/Vol] 6.7 g/dL Normal 6.4-8.2 [facility] Comment on above: Performed By: #### C MP, VIJI, LIPA ####[facility] Zfcnoqdqjr3550 [place] [address]Dr. Tadeo Smyth Sodium [Moles/Vol] 138 mmol/L Normal 136-145 [facility] Comment on above: Performed By: #### C MP, VIJI, LIPA ####[facility] Xwiezghztp[address] [place], [place] [address]Dr. Tadeo Smyth Urea nitrogen [Mass/Vol] 11.0 mg/dL Normal 7.0-18.0 [facility] Comment on above: Performed By: #### C MP, VIJI, LIPA ####[facility] Fznmycfpnl8726 [place] [address]Dr. Tadeo Smyth Urea nitrogen/Creatinine [Mass ratio] 14.1 mg/mg Normal [facility] Comment on above: Performed By: #### C MP, VIJI, LIPA ####[facility] Nlzoeajxbk3723 [place] [address]Dr. Tadeo Smyth STREPT SCREENon 02-02-2022 STREP SCREEN A Negative Normal NEGATIVE [facility] Comment on above: Performed By: #### G RASTCX, SSCRN ####[facility] Qldkpedouh[address] [place], [place] [address]Dr. Tadeo Smyth BASIC METABOLIC PANELon 08-05 Calcium [Mass/Vol] 8.4 mg/dL Low 8.6-10.3 [facility] Comment on above: Order Comment: No: D o not add to previous draw Performed By: #### 3 9841, 83314 #### [facility] [address] [place] [address], [place] Chloride [Moles/Vol] 108 mmol/L High 98-107 [facility] Comment on above: Order Comment: No: D o not add to previous draw Performed By: #### 3 317, 76798 #### [facility] [address] [place] [address], [place] CO2 [Moles/Vol] 26 mmol/L Normal 21-31 [facility] Comment on above: Order Comment: No: D o not add to previous draw Performed By: #### 3 847, 67136 #### [facility] [address] [place] [address], [place] Creatinine [Mass/Vol] 0.79 mg/dL Normal 0.60-1.20 [facility] Comment on above: Order Comment: No: D o not add to previous draw Performed By: #### 3 586, 40281 #### [facility] [address] [place] [address], [place] GFR/1.73 sq M predicted among blacks MDRD (S/P/Bld) [Vol rate/Area] mL/min/{1.73_m2} Normal >60 [facility] Comment on above: Order Comment: No: D o not add to previous draw Performed By: #### 3 275, 75049 #### [facility] [address] [place] [address], [place] GFR/1.73 sq M predicted among non-blacks MDRD (S/P/Bld) [Vol rate/Area] mL/min/{1.73_m2} Normal >60 [facility] Comment on above: Order Comment: No: D o not add to previous draw Performed By: #### 3 808, 13433 #### [facility] [address] [place] [address], [place] Glucose [Mass/Vol] 98 mg/dL Normal 70-100 [facility] Comment on above: Order Comment: No: D o not add to previous draw Performed By: #### 3 037, 53887 #### [facility] [address] [place] [address], [place] Potassium [Moles/Vol] 3.5 mmol/L Normal 3.5-5.1 [facility] Comment on above: Order Comment: No: D o not add to previous draw Performed By: #### 3 806, 01196 #### [facility] [address] [place] [address], [place] Sodium [Moles/Vol] 139 mmol/L Normal 136-145 [facility] Comment on above: Order Comment: No: D o not add to previous draw Performed By: #### 3 199, 82759 #### [facility] [address] [place] [address], [place] Urea nitrogen [Mass/Vol] 11 mg/dL Normal 7-25 [facility] Comment on above: Order Comment: No: D o not add to previous draw Performed By: #### 3 790, 21912 #### [facility] [address] [place] [address], [place] BLOOD STOOL GUAIACon 019 BLD STOOL GUAIAC Negative Normal NEGATIVE [facility] Comment on above: Order Comment: No: D o not add to previous draw Performed By: #### 3 529, 99439 #### [facility] [address] [place] [address], [place] MAGNESIUM BLOODon 08-16-2019 Magnesium [Mass/Vol] 2.0 mg/dL Normal 1.9-2.7 [facility] Comment on above: Order Comment: No: D o not add to previous draw Performed By: #### 3 652, 41348 #### [facility] [address] [place] [address], [place] *URINE CULTUREon 08-15-2019 Bacteria identified Cx Nom (U) Clinical Report: (D) Specimen/Source: URINE/MIDSTREAM Collected: 08/15/2019 20:40 Status: Final Last Updated: 08/17/2019 08:05 ISO (Final) Escherichia coli >100,000 Cfu/Ml ISOLATE: Escherichia coli RHONDA (mcg/ml) AMP./SULBAC (AMS) 16/8 Intermediate AMPICILLIN (AM) >16 Resistant AZTREONAM (AZM) <=1 Susceptible CEFAZOLIN (CZ) 2 Susceptible CEFTRIAXONE (CIVIL DESIGNER) <=0.5 Susceptible CIPROFLOXACIN (CIP) >2 Resistant ESBL (-/+) (ESBL) Negative GENTAMICIN (GM) <=1 Susceptible NITROFURANTOIN (FT) <=16 Susceptible PIP/TAZO (TZP) 4/4 Susceptible TOBRAMYCIN (TOB) 1 Susceptible TRIMETH/SULFA (SXT) >2/38 Resistant Normal [facility] Comment on above: Performed By: #### 3 6901, 11923 #### [facility] [address] BASIC METABOLIC PANELon 12- Calcium [Mass/Vol] 8.8 mg/dL Normal 8.6-10.3 [facility] Comment on above: Order Comment: No: D o not add to previous draw Performed By: #### 0 0071, 91640, 47815 #### [facility] [address] [place] [address], [facility] Chloride [Moles/Vol] 107 mmol/L Normal 98-107 [facility] Comment on above: Order Comment: No: D o not add to previous draw Performed By: #### 0 0071, 03545, 18956 #### [facility] [address] [facility] [place] [address], [facility] CO2 [Moles/Vol] 27 mmol/L Normal 21-31 [facility] Comment on above: Order Comment: No: D o not add to previous draw Performed By: #### 0 0071, 83464, 63295 #### [facility] [address] [facility] [place] [address], [place] Creatinine [Mass/Vol] 0.99 mg/dL Normal 0.60-1.20 [facility] Comment on above: Order Comment: No: D o not add to previous draw Performed By: #### 0 0071, 45657, 49912 #### [facility] [address] [place] [address], [place] GFR/1.73 sq M predicted among blacks MDRD (S/P/Bld) [Vol rate/Area] mL/min/{1.73_m2} Normal >60 [facility] Comment on above: Order Comment: No: D o not add to previous draw Performed By: #### 0 0071, 43404, 19606 #### [facility] [address] [place] [address], [place] GFR/1.73 sq M predicted among non-blacks MDRD (S/P/Bld) [Vol rate/Area] 59 ml/min/1.73sq m Abnormal >60 [facility] Comment on above: Order Comment: No: D o not add to previous draw Performed By: #### 0 0071, 00197, 66060 #### [facility] [address] [place] [address], [place] Glucose [Mass/Vol] 100 mg/dL Normal 70-100 [facility] Comment on above: Order Comment: No: D o not add to previous draw Performed By: #### 0 0071, 34804, 84951 #### [facility] [address] [place] [address], [place] Potassium [Moles/Vol] 3.6 mmol/L Normal 3.5-5.1 [facility] Comment on above: Order Comment: No: D o not add to previous draw Performed By: #### 0 0071, 63701, 84847 #### [facility] [address] [place] [address], [place] Sodium [Moles/Vol] 140 mmol/L Normal 136-145 [facility] Comment on above: Order Comment: No: D o not add to previous draw Performed By: #### 0 0071, 29293, 13920 #### [facility] [address] [place] [address], [facility] Urea nitrogen [Mass/Vol] 9 mg/dL Normal 7-25 [facility] Comment on above: Order Comment: No: D o not add to previous draw Performed By: #### 0 0071, 09650, 10226 #### [facility] [address] [place] [address], [facility] LACTATE BLOODon 08-15-2019 Lactate [Moles/Vol] 0.8 mmol/L Normal 0.5-2.2 [facility] Comment on above: Order Comment: Yes: Add to Previous draw if able Performed By: #### 1 0054 #### [facility] [address] LMWH HEPARIN ASSAYon 019 LOW MOLECULAR WEIGHT HEPARIN 0.32 IU/mL Low 0.60-1.20 [facility] Comment on above: Order Comment: (draw 4 hours after enoxaparin dose) needed if patient > 150kg or BMI >50 not usually necessary but consider in renal dysfunction, hepaticdysfunction, , children, very underweight, or overweightNo: Do not add to previous drawPER RN TY, PATIENT RECEIVES DOSE AT 9 AM. TRY AGAIN AT 1300.PER RN DAINA ROCHANOX WAS GIVEN TO PATIENT AT 10AM [...] and LMWH. Performed By: #### 3 6901, 46867 #### [facility] [address] [place] [address], [facility] MAGNESIUM BLOODon 08-15-2019 Magnesium [Mass/Vol] 1.7 mg/dL Low 1.9-2.7 [facility] Comment on above: Order Comment: No: D o not add to previous draw Performed By: #### 0 0071, 11636, 30266 #### [facility] [facility] [address] [place], [place] [id number] [place] [address] PHOSPHORUS BLOODon 9 Phosphate [Mass/Vol] 4.1 mg/dL Normal 2.5-5.0 [facility] Comment on above: Order Comment: No: D o not add to previous draw Performed By: #### 0 0071, 63313, [id number] #### [facility] [address] UGI WITH SMALL BOWELon 08-15 UGI WITH SMALL BOWEL [facility] Department of Radiology [address] [place] [id number] Patient Name: CONSTANTINO CARDOSO : 1970 Sex: F Age: Race: White Pt. Location: [address] [place] [address] Patient Status: O Ordered Date: 08/15/2019 10:45:00 [...] ischemia. Electronically signed by:Orestes Condon. Transcribed by: [email or web address], User Resident: Electronically Signed by: ORESTES CONDON @ 08/15/2019 04:13 PM Normal [facility] Comment on above: Order Comment: R/O O bstruction URINALYSIS REFLEXon 08-15-20 19 Appearance (U) SL CLOUDY Abnormal CLEAR [facility] Comment on above: Order Comment: No: D o not add to previous drawCriteria for reflexing a culture was met. Urine Culture and sensitivitywill be performed. Performed By: #### 3 6771, 37715 #### [facility] [address] [place] [address], [place] Bilirubin [Mass/Vol] Negative Normal NEGATIVE [facility] Comment on above: Order Comment: No: D o not add to previous drawCriteria for reflexing a culture was met. Urine Culture and sensitivitywill be performed. Performed By: #### 3 9781, 28408 #### [facility] [address] [place] [address], [place] BLOOD SMALL Abnormal NEGATIVE [facility] Comment on above: Order Comment: No: D o not add to previous drawCriteria for reflexing a culture was met. Urine Culture and sensitivitywill be performed. Performed By: #### 3 8911, 83643 #### [facility] [address] [place] [id number], [facility] Color (U) YELLOW Normal YELLOW [facility] Comment on above: Order Comment: No: D o not add to previous drawCriteria for reflexing a culture was met. Urine Culture and sensitivitywill be performed. Performed By: #### 3 6901, 92335 #### [facility] [address] [place] [address], [facility] EPIS OCC Normal FEW,OCC,NON E SEEN [facility] Comment on above: Order Comment: No: D o not add to previous drawCriteria for reflexing a culture was met. Urine Culture and sensitivitywill be performed. Performed By: #### 3 1781, 75596 #### [facility] [address] [place] [address], [place] Glucose [Mass/Vol] Negative Normal NEGATIVE [facility] Comment on above: Order Comment: No: D o not add to previous drawCriteria for reflexing a culture was met. Urine Culture and sensitivitywill be performed. Performed By: #### 3 2081, 95921 #### [facility] [address] [place] [address], [place] HYALINE CASTS 6-10 Abnormal NONE SEEN [facility] Comment on above: Order Comment: No: D o not add to previous drawCriteria for reflexing a culture was met. Urine Culture and sensitivitywill be performed. Performed By: #### 3 6901, 93870 #### [facility] [address] [place] [address], [place] KETONE Negative Normal NEGATIVE [facility] Comment on above: Order Comment: No: D o not add to previous drawCriteria for reflexing a culture was met. Urine Culture and sensitivitywill be performed. Performed By: #### 3 6900, 76487 #### [facility] [address] [place] [address], [facility] LEUK JONN MODERATE Abnormal NEGATIVE [facility] Comment on above: Order Comment: No: D o not add to previous drawCriteria for reflexing a culture was met. Urine Culture and sensitivitywill be performed. Performed By: #### 3 6901, 44767 #### [facility] [address] [place] [address], [place] MUCUS THREADS FEW Abnormal NONE SEEN [facility] Comment on above: Order Comment: No: D o not add to previous drawCriteria for reflexing a culture was met. Urine Culture and sensitivitywill be performed. Performed By: #### 3 6900, 70413 #### [facility] [address] [facility] [place] [place] [address], [facility] Nitrite Ql (U) Negative Normal NEGATIVE [facility] Comment on above: Order Comment: No: D o not add to previous drawCriteria for reflexing a culture was met. Urine Culture and sensitivitywill be performed. Performed By: #### 3 828, 88454 #### [facility] [address] [place] [address], [facility] pH (Bld) 5.0 Normal 5.0-8.0 [facility] Comment on above: Order Comment: No: D o not add to previous drawCriteria for reflexing a culture was met. Urine Culture and sensitivitywill be performed. Performed By: #### 3 643, 23479 #### [facility] [address] [place] [address], [facility] Protein (U) [Mass/Vol] Negative Normal NEGATIVE [facility] Comment on above: Order Comment: No: D o not add to previous drawCriteria for reflexing a culture was met. Urine Culture and sensitivitywill be performed. Performed By: #### 3 184, 93031 #### [facility] [address] [place] [address], [facility] RBC (U) [#/Vol] 6-10 Abnormal NONE SEEN [facility] Comment on above: Order Comment: No: D o not add to previous drawCriteria for reflexing a culture was met. Urine Culture and sensitivitywill be performed. Performed By: #### 3 6901, 23321 #### [facility] [address] [facility] [place] [place] [address], [facility] SPEC GRAV 1.025 High 1.015-1.020 [facility] Comment on above: Order Comment: No: D o not add to previous drawCriteria for reflexing a culture was met. Urine Culture and sensitivitywill be performed. Performed By: #### 3 6901, 28268 #### [facility] [address] [facility] [place] [place] [address], [facility] WBC UA 51-100 Abnormal NONE SEEN [facility] Comment on above: Order Comment: No: D o not add to previous drawCriteria for reflexing a culture was met. Urine Culture and sensitivitywill be performed. Performed By: #### 3 6901, 10398 #### [facility] 3000 [facility]. [address] CBC COMPLETE BLOOD COUNTon 10-15-2018 Erythrocyte distribution width (RBC) [Ratio] 12.7 % Normal 11.5-15.0 [facility] Comment on above: Order Comment: No: D o not add to previous draw Performed By: #### 5 0608 #### [facility] [address] [facility] [address] Hematocrit (Bld) [Volume fraction] 31.2 % Low 36.0-45.0 [facility] Comment on above: Order Comment: No: D o not add to previous draw Performed By: #### 5 0608 #### [facility] [address] [place] [address], [facility] Hemoglobin (Bld) [Mass/Vol] 9.8 g/dL Low 12.0-15.0 [facility] Comment on above: Order Comment: No: D o not add to previous draw Performed By: #### 5 0608 #### [facility] [address] [facility] [place] [address], [facility] MCH (RBC) [Entitic mass] 29.1 pg Normal 27.0-33.0 [facility] Comment on above: Order Comment: No: D o not add to previous draw Performed By: #### 5 0608 #### [facility] [address] MCHC (RBC) [Mass/Vol] 31.4 g/dL Low 32.0-35.0 [facility] Comment on above: Order Comment: No: D o not add to previous draw Performed By: #### 5 0608 #### [facility] [address] [place] [address], [facility] MCV (RBC) [Entitic vol] 92.6 fL Normal 82.0-98.0 [facility] Comment on above: Order Comment: No: D o not add to previous draw Performed By: #### 5 0608 #### [facility] [address] Nucleated RBC/100 WBC (Bld) [Ratio] 0 % Normal 0-0 [facility] Comment on above: Order Comment: No: D o not add to previous draw Performed By: #### 5 0608 #### [facility] [address] [place] [address], [facility] PLAT CNT 340 10*3/uL Normal 150-400 [facility] Comment on above: Order Comment: No: D o not add to previous draw Performed By: #### 5 0608 #### [facility] [address] [place] [address], [facility] RBC (Bld) [#/Vol] 3.37 10*6/uL Low 3.80-5.00 [facility] Comment on above: Order Comment: No: D o not add to previous draw Performed By: #### 5 0608 #### [facility] [address] [facility] [place] [address], [facility] WBC (Bld) [#/Vol] 6.04 10*3/uL Normal 4.00-10.60 [facility] Comment on above: Order Comment: No: D o not add to previous draw Performed By: #### 5 0608 #### [facility] [address] PROTHROMBIN TIMEon 12-10-201 9 INR Coag (PPP) [Relative time] 1.09 {INR} Normal 0.91-1.16 [facility] Comment on above: Order Comment: No: D [...] 1995;108:[id number]. Performed By: #### 5 6101 #### [facility] [address] [place] [address], [facility] PT Coag (PPP) [Time] 14.1 s Normal 12.3-14.8 [facility] Comment on above: Order Comment: No: D o not add to previous draw Result Comment: ALL RESULTS MUST BE INTERPRETED WITH RESPECT TO BLOOD DRAWING ARTIFACT OR DILUTION ERROR OF ANTICOAGULANT AT THE TIME OF SAMPLING. Performed By: #### 5 6101 #### [address] LIVER 08-14-2019 [facility] Department of Radiology [address] [place] [id number] Patient Name: CONSTANTINO CARDOSO : 1970 Sex: F Age: Race: White Pt. Location: [id number] Patient Status: O Ordered Date: 08/13/2019 8:30:00 [...] cholecystectomy. Electronically signed by:Orestes Condon. Transcribed by: [email or web address], User Resident: Electronically Signed by: ORESTES CONDON @ 08/14/2019 02:09 PM Normal [facility] Comment on above: Order Comment: R/O S tones BASIC METABOLIC PANELon 12-0 Calcium [Mass/Vol] 9.4 mg/dL Normal 8.6-10.3 [facility] Comment on above: Order Comment: No: D o not add to previous draw Performed By: #### 3 871, 77942 #### [facility] [address] [place] [address], [place] Chloride [Moles/Vol] 105 mmol/L Normal 98-107 [facility] Comment on above: Order Comment: No: D o not add to previous draw Performed By: #### 3 249, 25770 #### [facility] [address] [place] [address], [place] CO2 [Moles/Vol] 26 mmol/L Normal 21-31 [facility] Comment on above: Order Comment: No: D o not add to previous draw Performed By: #### 3 328, 63236 #### [facility] [address] [place] [address], [place] Creatinine [Mass/Vol] 1.03 mg/dL Normal 0.60-1.20 [facility] Comment on above: Order Comment: No: D o not add to previous draw Performed By: #### 3 945, 60027 #### [facility] [address] [place] [address], [place] GFR/1.73 sq M predicted among blacks MDRD (S/P/Bld) [Vol rate/Area] mL/min/{1.73_m2} Normal >60 [facility] Comment on above: Order Comment: No: D o not add to previous draw Performed By: #### 3 735, 91815 #### [facility] [address] [place] [address], [facility] GFR/1.73 sq M predicted among non-blacks MDRD (S/P/Bld) [Vol rate/Area] 57 ml/min/1.73sq m Abnormal >60 [facility] Comment on above: Order Comment: No: D o not add to previous draw Performed By: #### 3 793, 68005 #### [facility] [address] [place] [address], [facility] Glucose [Mass/Vol] 96 mg/dL Normal 70-100 [facility] Comment on above: Order Comment: No: D o not add to previous draw Performed By: #### 3 023, 23391 #### [facility] [address] [place] [address], [facility] Potassium [Moles/Vol] 4.1 mmol/L Normal 3.5-5.1 [facility] Comment on above: Order Comment: No: D o not add to previous draw Performed By: #### 3 780, 56408 #### [facility] [address] [place] [address], [facility] Sodium [Moles/Vol] 138 mmol/L Normal 136-145 [facility] Comment on above: Order Comment: No: D o not add to previous draw Performed By: #### 3 806, 49143 #### [facility] [address] [place] [id number], [facility] Urea nitrogen [Mass/Vol] 16 mg/dL Normal 7-25 [facility] Comment on above: Order Comment: No: D o not add to previous draw Performed By: #### 3 , 58544 #### [facility] [address] [place] [id number], [facility] CBC W/DIFFon 08-13-2019 ABS BASOPHILS 0.0 10*3/uL Normal 0.0-0.2 [facility] Comment on above: Order Comment: No: D o not add to previous draw Performed By: #### 5 0103 #### [facility] [address] [place] [address], [facility] ABS IMM GRANS 0.0 10*3/uL Normal 0.0-0.2 [facility] Comment on above: Order Comment: No: D o not add to previous draw Performed By: #### 5 0103 #### [facility] [address] [facility] [place] [address], [facility] ABS NEUTROPHILS 4.0 10*3/uL Normal 1.6-7.6 [facility] Comment on above: Order Comment: No: D o not add to previous draw Performed By: #### 5 0103 #### [facility] [address] [facility] [place] [place] [address], [facility] Basophils/100 WBC (Bld) 0.5 % Normal 0.0-1.0 [facility] Comment on above: Order Comment: No: D o not add to previous draw Performed By: #### 5 0103 #### [facility] [address] [facility] [place] [place] [address], [facility] Eosinophils (Bld) [#/Vol] 0.2 10*3/uL Normal 0.0-0.5 [facility] Comment on above: Order Comment: No: D o not add to previous draw Performed By: #### 5 0103 #### [facility] [address] [facility] [place] [place] [address], [facility] Eosinophils/100 WBC (Bld) 3.3 % Normal 0.0-6.0 [facility] Comment on above: Order Comment: No: D o not add to previous draw Performed By: #### 5 0103 #### [facility] [address] [facility] [place] [address], [facility] Erythrocyte distribution width (RBC) [Ratio] 12.7 % Normal 11.5-15.0 [facility] Comment on above: Order Comment: No: D o not add to previous draw Performed By: #### 5 0103 #### [facility] [address] [place] [address], [facility] Hematocrit (Bld) [Volume fraction] 33.4 % Low 36.0-45.0 [facility] Comment on above: Order Comment: No: D o not add to previous draw Performed By: #### 5 0103 #### [facility] [address] [place] [address], [facility] Hemoglobin (Bld) [Mass/Vol] 10.5 g/dL Low 12.0-15.0 [facility] Comment on above: Order Comment: No: D o not add to previous draw Performed By: #### 5 0103 #### [facility] [address] [place] [address], [facility] IMMATURE GRANS 0.2 % Normal 0.0-1.0 [facility] Comment on above: Order Comment: No: D o not add to previous draw Performed By: #### 5 3 #### [facility] [address] [facility] [place] [address], [facility] Lymphocytes (Bld) [#/Vol] 1.8 10*3/uL Normal 1.2-4.0 [facility] Comment on above: Order Comment: No: D o not add to previous draw Performed By: #### 5 3 #### [facility] [address] [facility] [place] [address], [facility] Lymphocytes/100 WBC (Bld) 28.2 % Normal 20.0-45.0 [facility] Comment on above: Order Comment: No: D o not add to previous draw Performed By: #### 5 0103 #### [facility] [address] [facility] [place] [address], [facility] MCH (RBC) [Entitic mass] 28.9 pg Normal 27.0-33.0 [facility] Comment on above: Order Comment: No: D o not add to previous draw Performed By: #### 5 3 #### [facility] [address] [place] [address], [facility] MCHC (RBC) [Mass/Vol] 31.4 g/dL Low 32.0-35.0 [facility] Comment on above: Order Comment: No: D o not add to previous draw Performed By: #### 5 0103 #### [facility] [address] [place] [id number], [facility] MCV (RBC) [Entitic vol] 92.0 fL Normal 82.0-98.0 [facility] Comment on above: Order Comment: No: D o not add to previous draw Performed By: #### 5 0103 #### [facility] [address] [place] [address], [facility] Monocytes (Bld) [#/Vol] 0.4 10*3/uL Normal 0.1-1.0 [facility] Comment on above: Order Comment: No: D o not add to previous draw Performed By: #### 5 0103 #### [facility] [address] [place] [address], [facility] MONOS 6.2 % Normal 5.0-12.0 [facility] Comment on above: Order Comment: No: D o not add to previous draw Performed By: #### 5 0103 #### [facility] [address] [place] [address], [facility] Neutrophils/100 WBC (Bld) 61.6 % Normal 40.0-72.0 [facility] Comment on above: Order Comment: No: D o not add to previous draw Performed By: #### 5 0103 #### [facility] [address] [place] [address], [facility] Nucleated RBC/100 WBC (Bld) [Ratio] 0 % Normal 0-0 [facility] Comment on above: Order Comment: No: D o not add to previous draw Performed By: #### 5 0103 #### [facility] [address] [place] [address], [facility] PLAT CNT 382 10*3/uL Normal 150-400 [facility] Comment on above: Order Comment: No: D o not add to previous draw Performed By: #### 5 0103 #### [facility] [address] [place] [address], [facility] RBC (Bld) [#/Vol] 3.63 10*6/uL Low 3.80-5.00 [facility] Comment on above: Order Comment: No: D o not add to previous draw Performed By: #### 5 0103 #### [facility] [address] [facility] [place] [address], [facility] WBC (Bld) [#/Vol] 6.45 10*3/uL Normal 4.00-10.60 [facility] Comment on above: Order Comment: No: D o not add to previous draw Performed By: #### 5 0103 #### [facility] [address] [address], [facility] LIPASE BLOODon 08-13-2019 Lipase [Catalytic activity/Vol] 13 Units/L Normal 11-82 [facility] Comment on above: Performed By: #### 3 6901, 11702 #### [facility] 3000 [facility]. [address] Vital Signs Date Time Vital Sign Value Performing Clinician Facility 01-07-2025 14:15-040 Body height 170.2 cm Nikki HAQ Work Phone: [facility] 01-07-2025 14:15-0400 Body mass index (BMI) [Ratio] 29.44 kg/m2 Nikki HAQ Work Phone: [facility] 01-07-2025 14:15-040 Body weight 85.28 kg Nikki HAQ Work Phone: [facility] 01-07-2025 14:15-040 Diastolic blood pressure 92 mm[Hg] Nikki HAQ Work Phone: [facility] 01-07-2025 14:15-0400 Heart rate 52 /min Nikki Ayoub PA Work Phone: [facility] 01-07-2025 14:15-0400 Respiratory rate 16 /min Nikki Ayoub PA Work Phone: [facility] 01-07-2025 14:15-0400 SaO2% (BldA) [Mass fraction] 98 % Nikki Ayoub PA Work Phone: [facility] 01-07-2025 14:15-0400 Systolic blood pressure 142 mm[Hg] Nikki Ayoub PA Work Phone: [facility] 11-26-2024 10:51-0400 Body height 170.2 cm Nikki Ayoub PA Work Phone: [facility] 11-26-2024 10:51-0400 Body mass index (BMI) [Ratio] 30.23 kg/m2 Nikki Ayoub PA Work Phone: [facility] 11-26-2024 10:51-0400 Body weight 87.54 kg Nikki Ayoub PA Work Phone: [facility] 11-26-2024 10:51-0400 Diastolic blood pressure 84 mm[Hg] Nikki Ayoub PA Work Phone: [facility] 11-26-2024 10:51-0400 Heart rate 77 /min Nikki Ayoub PA Work Phone: [facility] 11-26-2024 10:51-0400 Respiratory rate 16 /min Nikki Ayoub PA Work Phone: [facility] 11-26-2024 10:51-0400 SaO2% (BldA) [Mass fraction] 99 % Nikki Ayoub PA Work Phone: [facility] 11-26-2024 10:51-0400 Systolic blood pressure 124 mm[Hg] Nikki Ayoub PA Work Phone: [facility] 10-20-2024 18:00-0500 Hourly Rounding Eliezer Lorenzo [facility] 10-20-2024 18:00-0500 Promise to Return Eliezer Paster [facility] 10-20-2024 17:00-0500 Hourly Rounding Eliezer Paster [facility] 10-20-2024 17:00-0500 Promise to Return Eliezer Paster [facility] 10-20-2024 16:00-0500 Hourly Rounding Eliezer Paster [facility] 10-20-2024 16:00-0500 Promise to Return Eliezer Paster [facility] 10-20-2024 13:48-0500 SaO2% (BldA) [Mass fraction] 96 % Eliezer Paster [facility] 10-20-2024 11:46-0500 Heart rate 54 /min Eliezer Paster [facility] 10-20-2024 11:46-0500 SaO2% (BldA) [Mass fraction] 96 % Eliezer Paster [facility] 10-20-2024 11:44-0500 Diastolic blood pressure 78 mm[Hg] Eliezer Paster [facility] 10-20-2024 11:44-0500 Mean blood pressure 95 mm[Hg] Eliezer Paster [facility] 10-20-2024 11:44-0500 Systolic blood pressure 127 mm[Hg] Eliezer Paster [facility] 10-20-2024 11:44-0500 Body temperature 97.7 [degF] Eliezer Paster [facility] 10-20-2024 10:24-0500 Diastolic blood pressure 80 mm[Hg] Eliezer Paster [facility] 10-20-2024 10:24-0500 Heart rate 77 /min Eliezer Paster [facility] 10-20-2024 10:24-0500 Systolic blood pressure 129 mm[Hg] Eliezer Paster [facility] 10-20-2024 07:55-0500 Heart rate 49 /min Eliezer Paster [facility] 10-20-2024 07:55-0500 SaO2% (BldA) [Mass fraction] 97 % Eliezer Paster [facility] 10-20-2024 07:53-0500 Mean blood pressure 97 mm[Hg] Eliezer Paster [facility] 10-20-2024 07:53-0500 Body temperature 97.52 [degF] Eliezer Paster [facility] 10-20-2024 04:00-0500 gluc 93 mg/dL Eliezer Paster [facility] 10-20-2024 03:57-0500 Heart rate 54 /min Eliezer Paster [facility] 10-20-2024 03:56-0500 Mean blood pressure 80 mm[Hg] Eliezer Paster [facility] 10-20-2024 03:56-0500 Body temperature 98.06 [degF] Eliezer Paster [facility] 10-20-2024 03:12-0500 Heart rate 49 /min Eliezer Paster [facility] 10-20-2024 03:12-0500 Mean blood pressure 98 mm[Hg] Eliezer Paster [facility] 10-20-2024 03:12-0500 Respiratory rate 16 /min Eliezer Paster [facility] 10-20-2024 01:00-0500 Heart rate 58 /min Eliezer Paster [facility] 10-20-2024 01:00-0500 Mean blood pressure 81 mm[Hg] Eliezer Paster [facility] 10-20-2024 00:00-0500 gluc 93 mg/dL Eliezer Paster [facility] 10-19-2024 23:00-0500 Heart rate 61 /min Eliezer Paster [facility] 10-19-2024 23:00-0500 Mean blood pressure 79 mm[Hg] Eliezer Paster [facility] 10-19-2024 20:30-0500 Body temperature 98.06 [degF] Eliezer Paster [facility] Comment on above: Result Comment: Patient arrives to room 212. Oriented to room. 10-19-2024 20:30-0500 Respiratory rate 16 /min Eliezer Paster [facility] 10-19-2024 19:00-0500 Respiratory rate 22 /min Eliezer Paster [facility] 10-19-2024 17:21-0500 Body temperature 98.42 [degF] Eliezer Paster [facility] 08-30-2024 07:25-0500 Body temperature 97.9 [degF] Pete Otto MD [facility] [facility] 08-30-2024 07:25-0500 Diastolic blood pressure 89 mm[Hg] Pete Otto MD [facility] [employer] 08-30-2024 07:25-0500 Heart rate 61 /min Pete Otto MD Work [facility] 08-30-2024 07:25-0500 Respiratory rate 16 /min Pete Otto MD Work [facility] 08-30-2024 07:25-0500 SaO2% (BldA) [Mass fraction] 96 % Pete Otto MD Work Phone: [facility] [employer] 08-30-2024 07:25-0500 Systolic blood pressure 144 mm[Hg] Pete Otto MD Work Phone: [facility] [employer] 08-28-2024 16:30-0500 Body height 170.2 cm Pete Otto MD Work Phone: [facility] [employer] 08-28-2024 16:30-0500 Body mass index (BMI) [Ratio] 28.82 kg/m2 Pete Otto MD Work Phone: [facility] [employer] 08-28-2024 16:30-0500 Body weight 83.5 kg Pete Otto MD Work Phone: [facility] [employer] 08-17-2024 13:40-0500 Body temperature 97.7 [degF] Jose Miguel Lucero MD Work Phone: [facility] 08-17-2024 13:40-0500 Diastolic blood pressure 89 mm[Hg] Jose Miguel Lucero MD Work Phone: [facility] 08-17-2024 13:40-0500 Heart rate 68 /min Jose Miguel Lucero MD Work Phone: [facility] 08-17-2024 13:40-0500 Respiratory rate 12 /min Jose Miguel Lucero MD Work Phone: [facility] 08-17-2024 13:40-0500 SaO2% (BldA) [Mass fraction] 99 % Jose Miguel Lucero MD Work Phone: [facility] 08-17-2024 13:40-0500 Systolic blood pressure 159 mm[Hg] Jose Miguel Lucero MD Work Phone: [facility] 08-17-2024 11:29-0500 Body height 170.2 cm Jose Miguel Lucero MD Work Phone: [facility] 08-17-2024 11:29-0500 Body mass index (BMI) [Ratio] 29.75 kg/m2 Jose Miguel Lucero MD Work Phone: [facility] 08-17-2024 11:29-0500 Body weight 86.18 kg Jose Miguel Lucero MD Work Phone: [facility] 07-13-2024 11:29-0500 Body height 170.2 cm Kulwant Hodge MD Work Phone: [facility] 07-13-2024 11:29-0500 Body mass index (BMI) [Ratio] 29.44 kg/m2 Kulwant Hodge MD Work Phone: [facility] 07-13-2024 11:29-0500 Body weight 85.28 kg Kulwant Hodge MD Work Phone: [facility] 07-13-2024 11:29-0500 Diastolic blood pressure 70 mm[Hg] Kulwant Hodge MD Work Phone: [facility] 07-13-2024 11:29-0500 Heart rate 68 /min Kulwant Hodge MD Work Phone: [facility] Comment on above: 02 SAT 96% 07-13-2024 11:29-0500 Respiratory rate 16 /min Kulwant Hodge MD Work Phone: [facility] 07-13-2024 11:29-0500 Systolic blood pressure 116 mm[Hg] Kulwant Hodge MD Work Phone: [facility] 06-20-2024 11:08-0400 Body height 170.2 cm Kulwant Hodge MD Work Phone: [facility] 06-20-2024 11:08-0400 Body mass index (BMI) [Ratio] 28.98 kg/m2 Kulwant Hodge MD Work Phone: [facility] 06-20-2024 11:08-0400 Body weight 83.92 kg Kulwant Hodge MD Work Phone: [facility] 06-20-2024 11:08-0400 Diastolic blood pressure 92 mm[Hg] Kulwant Hodge MD Work Phone: [facility] 06-20-2024 11:08-0400 Heart rate 62 /min Kulwant Hodge MD Work Phone: [facility] 06-20-2024 11:08-0400 Respiratory rate 16 /min Kulwant Hodge MD Work Phone: [facility] 06-20-2024 11:08-0400 Systolic blood pressure 140 mm[Hg] Kulwant Hodge MD Work Phone: [facility] 05-11-2024 10:50-0400 Diastolic blood pressure 80 mm[Hg] SPLASH LINE OPERATOR-C Judi Regina Work Phone: [facility] 05-11-2024 10:50-0400 Heart rate 67 /min SPLASH LINE OPERATOR-C Judi Regina Work Phone: [facility] 05-11-2024 10:50-0400 Respiratory rate 16 /min SPLASH LINE OPERATOR-C Judi Regina Work Phone: [facility] 05-11-2024 10:50-0400 SaO2% (BldA) [Mass fraction] 100 % SPLASH LINE OPERATOR-C Judi Regina Work Phone: [facility] 05-11-2024 10:50-0400 Systolic blood pressure 130 mm[Hg] SPLASH LINE OPERATOR-C Judi Regina Work Phone: [facility] 05-11-2024 08:23-0400 Body height 170.18 cm SPLASH LINE OPERATOR-C Juid Regina Work Phone: [facility] 05-11-2024 08:23-0400 Body weight 81.64 kg SPLASH LINE OPERATOR-C Judi Regina Work Phone: [facility] 04-26-2024 08:27-0400 Body height 170.18 cm [facility] 04-26-2024 08:27-0400 Body mass index (BMI) [Ratio] 28.5 kg/m2 [facility] 04-26-2024 08:27-0400 Body weight 82.55 kg [facility] 04-26-2024 08:27-0400 Diastolic blood pressure 82 mm[Hg] [facility] 04-26-2024 08:27-0400 Heart rate 59 /min [facility] 04-26-2024 08:27-0400 Systolic blood pressure 132 mm[Hg] [facility] 02-16-2024 09:03-0400 Blood Pressure Location Yolanda Orzech [facility] 02-16-2024 09:03-0400 Body temperature 97.7 [degF] Yolanda Orzech [facility] 02-16-2024 09:03-0400 Diastolic blood pressure 84 mm[Hg] Yolanda Orzech [facility] 02-16-2024 09:03-0400 Heart rate 78 /min Yolanda Orzech [facility] 02-16-2024 09:03-0400 Systolic blood pressure 128 mm[Hg] Yolanda Orzech [facility] 07-22-2023 13:19-0500 Body height 170.[address] Work Phone: [facility] 07-22-2023 13:19-0500 Body weight 83.[address] Work Phone: [facility] 07-14-2023 11:40-0500 Diastolic blood pressure 95 mm[Hg] Marques Bradley MD Work Phone: [facility] 07-14-2023 11:40-0500 Heart rate 56 /min Marques Bradley MD Work Phone: [facility] 07-14-2023 11:40-0500 Respiratory rate 16 /min Marques Bradley MD Work Phone: [facility] 07-14-2023 11:40-0500 SaO2% (BldA) [Mass fraction] 97 % Marques Bradley MD Work Phone: [facility] 07-14-2023 11:40-0500 Systolic blood pressure 158 mm[Hg] Marques Bradley MD Work Phone: [facility] 07-14-2023 11:10-0500 Body temperature 97.2 [degF] Marques Bradley MD Work Phone: [facility] 07-14-2023 08:34-0500 Body height 170.2 cm Marques Bradley MD Work Phone: [facility] 07-14-2023 08:34-0500 Body weight 88 kg Marques Bradley MD Work Phone: [facility] 04-21-2023 09:30-0400 Body height 170.18 cm Renny Omalley Other [employer] Other 04-21-2023 09:30-0400 Body mass index (BMI) [Ratio] 31.21 kg/m2 Renny Omalley Other [employer] Other 04-21-2023 09:30-0400 Body weight 90.4 kg Renny Omalley Other [employer] Other 04-21-2023 09:30-0400 Diastolic blood pressure 78 mm[Hg] Renny Omalley Other [employer] Other 04-21-2023 09:30-0400 Systolic blood pressure 130 mm[Hg] Renny Omalley Other [employer] Other 03-23-2023 07:33-0400 Diastolic blood pressure 80 mm[Hg] SPLASH LINE OPERATOR-C Judi Ugaldemer Work Phone: [facility] 03-23-2023 07:33-0400 Heart rate 81 /min SPLASH LINE OPERATOR-C Judi Ugaldemer Work Phone: [facility] 03-23-2023 07:33-0400 Respiratory rate 14 /min SPLASH LINE OPERATOR-C Jduimatty Youssef Work Phone: [facility] 03-23-2023 07:33-0400 SaO2% (BldA) [Mass fraction] 95 % SPLASH LINE OPERATOR-C Judi Youssef Work Phone: [facility] 03-23-2023 07:33-0400 Systolic blood pressure 171 mm[Hg] SPLASH LINE OPERATOR-C Judi Ugaldemer Work Phone: [facility] 03-23-2023 06:20-0400 Body height 170.18 cm SPLASH LINE OPERATOR-C Judi Youssef Work Phone: [facility] 03-23-2023 06:20-0400 Body temperature 97.4 [degF] SPLASH LINE OPERATOR-C Judi Ugaldemer Work Phone: [facility] 03-23-2023 06:20-0400 Body weight 90 kg SPLASH LINE OPERATOR-C Judi Youssef Work Phone: [facility] 02-19-2023 00:53-0400 Body temperature 96.98 [degF] Kaylinn Dokken [facility] 02-19-2023 00:53-0400 Diastolic blood pressure 99 mm[Hg] Kaylinn Dokken [facility] 02-19-2023 00:53-0400 Heart rate 75 /min Kaylinn Dokken [facility] 02-19-2023 00:53-0400 Respiratory rate 16 /min Kaylinn Dokken [facility] 02-19-2023 00:53-0400 SaO2% (BldA) [Mass fraction] 98 % Zabrina Patton [facility] 02-19-2023 00:53-0400 Systolic blood pressure 153 mm[Hg] Zabrina Santanaen [facility] 02-15-2023 10:33-0400 Diastolic blood pressure 89 mm[Hg] SPLASH LINE OPERATOR-C Judi Regina Work Phone: [facility] 02-15-2023 10:33-0400 SaO2% (BldA) [Mass fraction] 100 % SPLASH LINE OPERATOR-C Judi Regina Work Phone: [facility] 02-15-2023 10:33-0400 Systolic blood pressure 149 mm[Hg] SPLASH LINE OPERATOR-C Judi Regina Work Phone: [facility] 02-15-2023 10:00-0400 Heart rate 83 /min SPLASH LINE OPERATOR-C Judi Regina Work Phone: [facility] 02-15-2023 10:00-0400 Respiratory rate 16 /min SPLASH LINE OPERATOR-C Judi Regina Work Phone: [facility] 02-15-2023 08:06-0400 Body height 170.18 cm SPLASH LINE OPERATOR-C Judi Regina Work Phone: [facility] 02-15-2023 08:06-0400 Body temperature 97.6 [degF] SPLASH LINE OPERATOR-C Judi Regina Work Phone: [facility] 02-15-2023 08:06-0400 Body weight 89.2 kg SPLASH LINE OPERATOR-C Judi Regina Work Phone: [facility] 10-26-2022 08:03-0500 Diastolic blood pressure 87 mm[Hg] SPLASH LINE OPERATOR-C Judi Regina Work Phone: [facility] 10-26-2022 08:03-0500 Heart rate 70 /min SPLASH LINE OPERATOR-C Judi Regina Work Phone: [facility] 10-26-2022 08:03-0500 Respiratory rate 18 /min SPLASH LINE OPERATOR-C Judi Ugaldemer Work Phone: [facility] 10-26-2022 08:03-0500 SaO2% (BldA) [Mass fraction] 98 % SPLASH LINE OPERATOR-C Judi Ugaldemer Work Phone: [facility] 10-26-2022 08:03-0500 Systolic blood pressure 161 mm[Hg] SPLASH LINE OPERATOR-C Judi Regina Work Phone: [facility] 10-26-2022 06:17-0500 Body height 170.18 cm SPLASH LINE OPERATOR-C Judi Regina Work Phone: [facility] 10-26-2022 06:17-0500 Body temperature 97.2 [degF] SPLASH LINE OPERATOR-C Judi Ugaldemer Work Phone: 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 07-22-2022 14:34-0500 Diastolic blood pressure 83 mm[Hg] Ospina SALAM [facility] 07-22-2022 14:34-0500 Mean blood pressure 101 mm[Hg] Ospina SALAM [facility] 07-22-2022 14:34-0500 Systolic blood pressure 136 mm[Hg] Ospina SALAM [facility] 07-22-2022 14:30-0500 Blood Pressure Location Ospina SALAM [facility] 07-22-2022 14:30-0500 Diastolic blood pressure 89 mm[Hg] Ospina SALAM [facility] 07-22-2022 14:30-0500 Heart rate 62 /min Ospina SALAM [facility] 07-22-2022 14:30-0500 Respiratory rate 16 /min Ospina SALAM [facility] 07-22-2022 14:30-0500 SaO2% (BldA) [Mass fraction] 98 % Ospina SALAM [facility] 07-22-2022 14:30-0500 Systolic blood pressure 141 mm[Hg] Ospina SALAM [facility] 04-14-2022 14:50-0400 Blood Pressure Location Moniquejuan luis ReddyJimmy [facility] 04-14-2022 14:50-0400 Body temperature 97.16 [degF] Moniquejuan luis ReddyJimmy [facility] 04-14-2022 14:50-0400 Diastolic blood pressure 86 mm[Hg] Moniquejuan luis ReddyJimmy [facility] 04-14-2022 14:50-0400 Heart rate 72 /min Monique Jimmy [facility] 04-14-2022 14:50-0400 SaO2% (BldA) [Mass fraction] 97 % Monique Jimmy [facility] 04-14-2022 14:50-0400 Systolic blood pressure 131 mm[Hg] Monique Jimmy [facility] 01-28-2022 13:36-0400 Blood Pressure Location Monique Jimmy [facility] 01-28-2022 13:36-0400 Body temperature 97.52 [degF] Monique Marquez [facility] 01-28-2022 13:36-0400 Diastolic blood pressure 85 mm[Hg] Monique Rdedymetz [facility] 01-28-2022 13:36-0400 Heart rate 73 /min Monique Reddymetz [facility] 01-28-2022 13:36-0400 SaO2% (BldA) [Mass fraction] 96 % Monique Castañedaz [facility] 01-28-2022 13:36-0400 Systolic blood pressure 122 mm[Hg] Monique Marquez [facility] 01-11-2022 10:15-0400 Blood Pressure Location Ospina SALAM [facility] 01-11-2022 10:15-0400 Diastolic blood pressure 106 mm[Hg] Ospina SALAM [facility] 01-11-2022 10:15-0400 Heart rate 70 /min Ospina SALAM [facility] 01-11-2022 10:15-0400 Respiratory rate 28 /min Ospina SALAM [facility] 01-11-2022 10:15-0400 SaO2% (BldA) [Mass fraction] 99 % Ospina SALAM [facility] 01-11-2022 10:15-0400 Systolic blood pressure 137 mm[Hg] Ospina SALAM [facility] 01-11-2022 10:05-0400 Blood Pressure Location Ospina SALAM [facility] 01-11-2022 10:05-0400 Diastolic blood pressure 74 mm[Hg] Ospina SALAM [facility] 01-11-2022 10:05-0400 Heart rate 67 /min Ospina SALAM [facility] 01-11-2022 10:05-0400 Respiratory rate 14 /min Ospina SALAM [facility] 01-11-2022 10:05-0400 SaO2% (BldA) [Mass fraction] 97 % Ospina SALAM [facility] 01-11-2022 10:05-0400 Systolic blood pressure 128 mm[Hg] Ospina SALAM [facility] 01-11-2022 10:00-0400 Blood Pressure Location Ospina SALAM [facility] 01-11-2022 10:00-0400 Diastolic blood pressure 79 mm[Hg] Ospina SALAM [facility] 01-11-2022 10:00-0400 Heart rate 66 /min Ospina SALAM [facility] 01-11-2022 10:00-0400 Respiratory rate 16 /min Ospina SALAM [facility] 01-11-2022 10:00-0400 SaO2% (BldA) [Mass fraction] 98 % Ospina SALAM [facility] 01-11-2022 10:00-0400 Systolic blood pressure 134 mm[Hg] Ospina SALAM [facility] 01-11-2022 09:50-0400 Body temperature 97.52 [degF] Ospina SALAM [facility] 01-11-2022 09:45-0400 Respiratory rate 15 /min Ospina SALAM [facility] 01-11-2022 09:18-0400 Body temperature 97.34 [degF] Ospina SALAM [facility] 01-11-2022 09:18-0400 Respiratory rate 20 /[facility] Encounters Encounter Date Encounter Type Care Provider Facility Start: 02-16-2025 End: 02-16-2025 Emergency department patient visit Prosper Bergman [facility] Start: 01-07-2025 End: 01-07-2025 Office outpatient visit [...] Phone: [facility] Start: 01-07-2025 End: 01-07-2025 Sil HAQ Work Phone: [facility] Start: 12-28-2024 End: 12-28-2024 ambulatory [facility] Start: 12-18-2024 End: 12-18-2024 ambulatory Nicanor Perez [facility] Work Phone: Start: 12-18-2024 End: 04-15-2025 Departed Referred Nicanor Perez MD Work Phone: [facility] Start: 11-26-2024 End: 11-26-2024 Office outpatient visit 25 minutes Nikki HAQ Work Phone: [facility] Comment on above: Seizure (CMS/HCC) (P rimary Dx); History of obstructive sleep apnea; Migraine without aura and without status migrainosus, not intractable (CMS/HCC) Start: 11-26-2024 End: 11-26-2024 ambulatory NIKKI AYOUB Not Available Start: 10-19-2024 End: 10-20-2024 ambulatory Eliezer Lorenzo [facility] Start: 10-19-2024 Emergency department patient visit [facility] Facility:[facility] Start: 10-19-2024 End: 10-20-2024 Observation Eliezer Lorenzo [facility] Start: 09-17-2024 End: 09-17-2024 ambulatory [facility] Start: 08-28-2024 End: 08-30-2024 Evaluation and management of inpatient Pete Otto MD Work Phone: [facility] Comment on above: Ileus (HCC) (Primary Dx); Generalized abdominal pain; Hypokalemia Start: 08-17-2024 End: 08-17-2024 ambulatory AMIRAH LUCERO [facility] Start: 08-17-2024 End: 08-17-2024 Subsequent hospital visit by physician Jose Miguel Lucero MD Work Phone: [facility] Comment on above: Other dysphagia (Apple alfonzo Dx) Start: 07-13-2024 End: 07-13-2024 Bamboo flowsheet Kulwant Hodge MD Work Phone: [facility] Start: 07-13-2024 End: 07-13-2024 Bamboo flowsheet Kulwant Hodge MD Work Phone: [facility] Start: 07-13-2024 End: 07-13-2024 Office outpatient visit 25 minutes uKlwant Hodge MD Work Phone: [facility] Comment on above: Hypoglycemia Start: 07-13-2024 End: 07-13-2024 ambulatory KULWANT HODGE Not Available Start: 06-20-2024 End: 06-20-2024 Bamboo flowsheet Kulwant Hodge MD Work Phone: [facility] Start: 06-20-2024 End: 06-20-2024 Bamboo flowsheet Kulwant Hodge MD Work Phone: [facility] Start: 06-20-2024 End: 06-20-2024 ambulatory KULWANT HODGE Not Available Start: 06-20-2024 End: 06-20-2024 Office outpatient new 45 minutes Kulwant Hodge MD Work Phone: [facility] Comment on above: Hypoglycemia (Primar y Dx); Encounter for dietary consultation Start: 06-19-2024 End: 06-19-2024 Patient encounter procedure SPLASH LINE OPERATOR-C Judi Youssef Work Phone: [facility] Work Phone: Start: 06-19-2024 End: 06-19-2024 ambulatory SPLASH LINE OPERATOR-C Judi Youssfe Work Phone: [facility] Work Phone: Start: 06-07-2024 End: 06-07-2024 ambulatory Yolanda X Orzech Facility:[facility] Start: 06-07-2024 End: 06-07-2024 Patient encounter procedure Yolanda X Orzech [facility] Start: 05-14-2024 End: 05-14-2024 ambulatory [facility] Start: 05-11-2024 Non-patient / Non-visit SPLASH LINE OPERATOR-C Cesia Youssef Work Phone: [facility] Work Phone: Start: 05-11-2024 End: 05-11-2024 Admission to same day surgery center SPLASH LINE OPERATOR-C Judi Youssef Work Phone: [facility] Work Phone: Start: 05-11-2024 End: 05-11-2024 ambulatory SPLASH LINE OPERATOR-C Judi Youssef Work Phone: [facility] Work Phone: Start: 04-26-2024 End: 04-26-2024 ambulatory [facility] Work Phone: Start: 04-26-2024 End: 04-26-2024 Patient encounter procedure [facility] Work Phone: Start: 04-13-2024 Non-patient / Non-visit SPLASH LINE OPERATOR-C Cesia Youssef Work Phone: [facility] Work Phone: Start: 03-19-2024 End: 03-19-2024 ambulatory [facility] Start: 02-16-2024 End: 02-16-2024 ambulatory Yolanda X Orzech Facility[place] Start: 02-16-2024 End: 02-16-2024 Lab Drop off Yolanda X Orzech [facility] Start: 02-16-2024 End: 02-16-2024 ambulatory Yolanda X Orzech Facility:[facility] Start: 02-16-2024 End: 02-16-2024 Patient encounter procedure Yolanda X Orzech [facility] Start: 02-15-2024 End: 02-15-2024 ambulatory [facility] Start: 12-01-2023 ambulatory [facility] Start: 08-25-2023 End: 08-25-2023 ambulatory [facility] Facility:[facility] Start: 07-29-2023 Orders Only Evelyn Black RN Gen era Surgery Comment on above: Gastroparesis (Prima ry Dx) Start: 07-22-2023 End: 07-22-2023 ambulatory MARQUES BRADLEY Facility:[facility] Start: 07-22-2023 Telephone encounter Evelyn Black RN General Surgery Start: 07-22-2023 End: 07-22-2023 Nutrition therapy Americo Montalvo RD Work Phone: General Surgery Comment on above: Gastroparesis (Prima ry Dx); Malnutrition of moderate degree (HCC); Gastro-esophageal reflux disease without esophagitis; Overweight (BMI 25.0-29.9); Dietary counseling and surveillance Start: 07-22-2023 End: 07-22-2023 Telemedicine consultation with patient Americo Montalvo RD Work Phone: [facility] Start: 07-14-2023 End: 07-14-2023 ambulatory MARQUES BRADLEY Facility:[facility] Start: 07-14-2023 End: 07-14-2023 Subsequent hospital visit by physician Marques Bradley MD Work Phone: Gastroenterology Comment on above: Dysphagia, unspecifi ed type [R13.10] Start: 07-13-2023 End: 07-13-2023 ambulatory MARQUES BRADLEY Facility:[facility] Start: 05-27-2023 Telephone encounter Evelyn Black RN General Surgery Comment on above: Results Start: 05-26-2023 End: 05-26-2023 ambulatory MARQUES BRADLEY Facility:[facility] Start: 05-25-2023 End: 05-25-2023 ambulatory [facility] Facility:[facility] Start: 05-25-2023 End: 05-25-2023 Nursing evaluation of patient and report Nurse [facility] 2 Work Phone: Gastroenterology Comment on above: Nausea Start: 05-16-2023 Orders Only Evelyn Black RN Gen eral Surgery Comment on above: Nausea (Primary Dx); Dysphagia, unspecified type Start: 05-06-2023 End: 05-07-2023 ambulatory MARQUES BRADLEY Facility:[facility] Start: 05-02-2023 Telephone encounter Evelyn Black RN General Surgery Start: 04-26-2023 Telephone encounter Evelyn Black RN General Surgery Start: 04-21-2023 End: 04-21-2023 ambulatory Renny Omalley Other [employer] Other Start: 04-21-2023 Office outpatient vi sit 15 minutes Renny Omalley [facility] Start: 04-18-2023 Telephone encounter Evelyn Black RN General Surgery Comment on above: Band Splitter - O ther Start: 04-07-2023 Telephone encounter Guillermo Martinez DO Work Phone: Gastroenterology Comment on above: Appointment Start: 04-05-2023 End: 04-05-2023 ambulatory Imad Asaad Other [employer] Other Start: 04-05-2023 Telephone encounter Imad Asaad [facility] Start: 03-29-2023 ambulatory Facility:U Start: 03-26-2023 ambulatory Facility:[id number] Start: 03-26-2023 ambulatory Facility:[id number] Start: 03-24-2023 End: 03-24-2023 ambulatory Imad Asaad Other [employer] Other Start: 03-24-2023 Telephone encounter Imad Asaad [facility] Start: 03-23-2023 End: 03-23-2023 Emergency department patient visit LINDA-Paula Youssef Work Phone: [facility] Work Phone: Start: 03-22-2023 End: 03-22-2023 ambulatory Imad Asaad Other [employer] Other Start: 03-22-2023 Telephone encounter Imad Asaad [facility] Start: 03-09-2023 End: 03-09-2023 ambulatory Imad Asaad Other [employer] Other Start: 03-09-2023 Telephone encounter Imad Asaad [facility] Start: 03-01-2023 End: 03-01-2023 ambulatory Imad Asaad Other [employer] Other Start: 03-01-2023 Telephone encounter Imad Asaad [facility] Start: 02-19-2023 End: 02-19-2023 Emergency department patient visit Zabrina Patton [facility] Start: 02-15-2023 End: 02-15-2023 Emergency department patient visit SPLASH LINE OPERATOR-C Judi Youssef Work Phone: [facility] Work Phone: Start: 11-30-2022 End: 12-01-2022 ambulatory JUDIMATTY UGALDEMER Facility:H1 Start: 11-27-2022 End: 11-28-2022 ambulatory JUDIMATTY UGALDEMER Facility:H1 Start: 11-26-2022 End: 11-26-2022 ambulatory Imad Asaad Other [employer] Other Start: 11-26-2022 Telephone encounter Imad Asaad [facility] Start: 11-04-2022 End: 11-04-2022 Admission to same day surgery center [employer] LINE OPERATOR-C Judi Youssef Work Phone: [facility] [place] Work Phone: Start: 11-04-2022 End: 11-04-2022 ambulatory SPLASH LINE OPERATOR-C Judi Youssef Work Phone: [facility] Work Phone: Start: 11-01-2022 End: 11-02-2022 ambulatory JUDIMATTY YOUSSEF Facility:H1 Start: 10-26-2022 End: 10-26-2022 Emergency department patient visit SPLASH LINE OPERATOR-C Judi Youssef Work Phone: [facility] Work Phone: Start: 09-21-2022 End: 09-21-2022 ambulatory JUDI YOUSSEF Facility:H1 Start: 09-18-2022 End: 09-18-2022 ambulatory BALTAZAR GEORGES . Facility:H1 Start: 09-14-2022 End: 09-14-2022 ambulatory EUN WILSON . Facility:H1 Start: 09-07-2022 End: 09-07-2022 ambulatory Jennie Ayon Other [employer] Other Start: 09-07-2022 Telephone encounter Jennie Ayon [facility] Start: 09-06-2022 End: 09-07-2022 ambulatory JUDI YOUSSEF Facility:H1 Start: 08-20-2022 End: 08-20-2022 ambulatory BALTAZAR GEORGES . Facility:H1 Start: 08-17-2022 End: 08-18-2022 ambulatory JUDI YOUSSEF Facility:H1 Start: 08-11-2022 End: 08-12-2022 ambulatory JUDI YOUSSEF Facility:H1 Start: 08-08-2022 End: 08-08-2022 ambulatory KATHRIN VANCE Facility:H1 Start: 07-22-2022 End: 07-22-2022 Patient encounter procedure Anai FORBES [facility] Start: 07-21-2022 End: 07-21-[address] NORA WINN Facility:H1 Start: 07-15-2022 ambulatory JUDI YOUSSEF Facility: H1 Start: 07-12-2022 Encounter for genera l adult medical examination without abnormal findings JUDI YOUSSEF [facility] Start: 07-08-2022 End: 07-09-2022 ambulatory JUDI [...] End: 04-29-2022 Lab Drop off Anai FORBES [facility] Start: 04-14-2022 End: 04-14-2022 Patient encounter procedure Monique Alexandria Jimmy [facility] Start: 03-27-2022 End: 03-30-2022 Evaluation and management of inpatient SHAIKH Juan Luis DAVIS Facility:H1 Start: 03-01-2022 End: 03-01-2022 Patient encounter procedure Monique Alexandria Jimmy [facility] Start: 02-02-2022 End: 02-02-2022 ambulatory BALTAZAR GEORGES . Facility:H1 Start: 01-28-2022 End: 01-28-2022 Patient encounter procedure Monique A Jimmy [facility] Start: 01-11-2022 End: 01-11-2022 Patient encounter procedure Ospina MERARY [facility] Start: 12-24-2021 End: 12-24-2021 Patient encounter procedure JHOANA MELGOZA [facility] Start: 08-13-2019 End: 08-16-2019 Evaluation and management [...] Amr Alexandria Mclaughlin MD Work Phone: Start: 08-28-2024 Glucose [...] Hodge MD Work Phone: Start: 05-11-2024 Esophagogastroduodenoscopy SPLASH LINE OPERATOR-C Judi C carmen Work Phone: Start: 07-14-2023 Esophagoscp rig transoral hypopharynx crv esoph Evelyn Black RN Start: 05-25-2023 Esophageal motility study w/interp&rpt Evelyn Black RN Start: 03-23-2023 Computed tomography of abdomen and pelvis with contrast SPLASH LINE OPERATOR-C Judi Regina Work Phone: Start: 02-15-2023 Computed tomography of abdomen and pelvis with contrast SPLASH LINE OPERATOR-C Judi Regina Work Phone: Start: 11-04-2022 CT of small intestine SPLASH LINE OPERATOR-C Judi Regina Work Phone: Start: 10-26-2022 Computed tomography of abdomen and pelvis with contrast SPLASH LINE OPERATOR-C Judi Regina Work Phone: Start: 01-11-2022 Esophagogastroduodenoscopy Ospina LORNAGUSTAVO Start: 05-13-2021 Esophagogastroduodenoscopy JHOANA PERYovanny Y Start: 09-30-2020 Esophagogastroduodenoscopy JHOANA PERR Y [...] MELGOZA Comment on above: Dr. Mortensen in [place]. Hernia repair JHOANA MELGOZA Hysterectomy JHOANA MELGOZA Plan of Treatment Date Care Activity Detail Author Start: 03-13-2030 Screening for malignant neoplasm of colon [facility] Start: 05-06-2025 Influenza vaccination Influenza Vaccine (Season Ended) [facility] Start: 04-01-2025 End: 04-01-2025 Patient encounter procedure 04/01/2025 9:40 AM EDT Office Visit [facility] [address] [place] [phone] Eileen Fisher NP [address] [place] [address] [facility] Start: 02-07-2025 End: 02-07-2025 Clinical Support 02/07/2025 9:45 AM EDT Clini neeta Support [facility] [address] [place] [phone] [facility] Start: 01-07-2025 End: 01-07-2025 Patient encounter procedure [facility] Comment on above: Arrived Start: 01-07-2025 End: 01-07-2026 CBC W Auto Differential panel - Blood CBC auto differential Lab Routine Seizure (CMS/HCC) Expected: 01/07/2025 (Approximate), Expires: 01/07/2026 [facility] Comment on above: Expected: 01/07/2025 (Approximate), Expi res: 01/07/2026 Start: 01-07-2025 End: 01-07-2026 Comprehensive metabolic 2000 panel - Serum or Plasma Comprehensive metabolic panel Lab Routine Seizure (CMS/HCC) Expected: 01/07/2025 (Approximate), Expires: 01/07/2026 [facility] Work Phone: Comment on above: Expected: 01/07/2025 (Approximate), Expi res: 01/07/2026 Start: 01-07-2025 End: 01-07-2026 Levetiracetam level Levetiracetam level Lab Rout ine Seizure ([facility]/HCC) Expected: 01/07/2025 (Approximate), Expires: 01/07/2026 [facility] Comment on above: Expected: 01/07/2025 (Approximate), Expi res: 01/07/2026 Start: 01-07-2025 End: 01-07-2026 Vestibular test (VNG) Vestibular test (VNG) Neurol ogy Routine Dizziness Expected: 01/07/2025 (Approximate), Expires: 01/07/2026 [facility] Comment on above: Expected: 01/07/2025 (Approximate), Expi res: 01/07/2026 Start: 12-18-2024 Bacteria identified in Urine by Culture Urine Culture [facility] Start: 12-18-2024 U[address] culture [facility] Start: 11-29-2024 End: 11-29-2024 Patient encounter procedure 11/29/2024 11:00 AM EDT Office Visit [facility] [address] [place] [id number] Kulwant Hodge MD [address] [place] [address] [facility] Start: 11-26-2024 End: 11-26-2025 Polysomnography Polysomnography Sleep Center Routine History of obstructive sleep apnea Migraine without aura and without status migrainosus, not intractable ([facility]) Expected: 11/26/2024 (Approximate), Expires: 11/26/2025 [facility] Work Phone: Comment on above: Expected: 11/26/2024 (Approximate), Expi res: 11/26/2025 Start: 08-31-2024 End: 08-30-2025 Basic metabolic 2000 panel - Serum or Plasma Basic Metabolic Panel Lab Routine Ileus ([facility]) Generalized abdominal pain Hypokalemia Expected: 08/31/2024, Expires: 08/30/2025 [facility] Comment on above: Expected: 08/31/2024, Expires: Start: 08-31-2024 End: 08-30-2025 Magnesium [Mass/volume] in Serum or Plasma Magnesium Lab Routine Ileus (HCC) Generalized abdominal pain Hypokalemia Expected: 08/31/2024, Expires: 08/30/2025 [facility] Comment on above: Expected: 08/31/2024, Expires: 5 Start: 08-17-2024 End: 08-17-2025 Radiologic exam swallow function contrast study FL MODIFIED BARIUM SWALLOW W VIDEO Imaging Routine Other dysphagia Expected: 08/17/2024, Expires: 08/17/2025 [facility] Comment on above: Expected: 08/17/2024, Expires: Start: 08-17-2024 End: 08-17-2024 Egd transoral biopsy single/multiple ESOPHAGOGASTRODUODENOSCOPY BIOPSY Other dysphagia 08/17/2024 12:58 PM [facility] Start: 07-13-2024 End: 07-13-2024 Patient encounter procedure [facility] Comment on above: Arrived Start: 06-22-2024 Shingles vaccine (2 of 2) Shingles vaccine (2 of 2) [facility] Start: 06-20-2024 End: 06-20-2025 Basic metabolic 1998 panel - Serum or Plasma Basic metabolic panel Lab Routine Hypoglycemia Expected: 06/20/2024 (Approximate), Expires: 06/20/2025 [facility] Comment on above: Expected: 06/20/2024 (Approximate), Expi res: 06/20/2025 Start: 06-20-2024 End: 06-20-2025 C peptide [Mass/volume] in Serum or Plasma --fasting C PEPTIDE FASTING Lab Routine Hypoglycemia Expected: 06/20/2024 (Approximate), Expires: 06/20/2025 [facility] Work Phone: Comment on above: Expected: 06/20/2024 (Approximate), Expi res: 06/20/2025 Start: 06-20-2024 End: 06-20-2025 Hepatic function 2000 panel - Serum or Plasma Hepatic function panel Lab Routine Hypoglycemia Expected: 06/20/2024 (Approximate), Expires: 06/20/2025 [facility] Comment on above: Expected: 06/20/2024 (Approximate), Expi res: 06/20/2025 Start: 06-20-2024 End: 06-20-2025 Insulin, fasting Insulin, fasting Lab Routine Hypoglycemia Expected: 06/20/2024 (Approximate), Expires: 06/20/2025 [facility] Comment on above: Expected: 06/20/2024 (Approximate), Expi res: 06/20/2025 Start: 06-20-2024 End: 06-20-2025 Insulin-like growth factor 2 Insulin-like growth factor 2 Lab Routine Hypoglycemia Expected: 06/20/2024 (Approximate), Expires: 06/20/2025 [facility] Comment on above: Expected: 06/20/2024 (Approximate), Expi res: 06/20/2025 Start: 06-20-2024 End: 06-20-2025 Proinsulin Proinsulin Lab Routine Hypoglycemia Expected: 06/20/2024 (Approximate), Expires: 06/20/2025 [facility] Comment on above: Expected: 06/20/2024 (Approximate), Expi res: 06/20/2025 Start: 05-11-[address] [facility] Start: 05-06-2024 COVID-19 Vaccine ( season) COVID-19 Vaccine ( season) [facility] Start: 05-06-2024 Influenza vaccination Influenza Vaccine (#1) [facility] Start: 04-05-2024 Influenza vaccination Flu vaccine (#1) [facility] Start: 05-06-2023 Covid-19 Vaccine ( season) Covid-19 Vaccine ( season) [facility] Start: 05-06-2023 Influenza vaccination [facility] Start: 09-05-2022 DEPRESSION ASSESSMENT DEPRESSION ASSESSMENT [facility] Start: 01-01-2022 COVID-19 VACCINE (4 - Pfizer series) COVID-19 VACCINE (4 - Pfizer series) [facility] Start: 2020 SHINGRIX VACCINE (1 of 2) SHINGRIX VACCINE (1 of 2) [facility] Start: 2015 COLOGUARD (FIT-DNA) COLOGUARD (FIT-DNA) [facility] Start: 2015 Colonoscopy COLONOSCOPY [facility] Start: 2015 COLORECTAL CANCER SCREENING COLORECTAL CANCER SCREENING [facility] Start: [address] COLONOGRAPHY [facility] Start: 2015 DIABETES SCREEN DIABETES SCREEN [facility] Start: 2015 Diabetes Screening Diabetes Screening [facility] Start: 2015 FECAL OCCULT BLOOD FECAL OCCULT BLOOD [facility] Start: 2015 Lipid 1996 panel - Serum or Plasma Lipid Screening [facility] Start: 2015 LIPID SCREEN LIPID SCREEN [facility] Start: 2015 Screening for malignant neoplasm of colon [facility] [employer] Start: 2015 SIGMOIDOSCOPY SIGMOIDOSCOPY [facility] Start: 2010 Lipid panel Lipids [facility] [employer] Start: 2010 Mammography [facility] Start: 2010 Screening for malignant neoplasm of breast [facility] Start: 2005 Diabetes screen Diabetes screen [facility] [employer] Start: 2000 HPV TESTING HPV TESTING [facility] Start: 2000 Screening for malignant neoplasm of cervix [facility] Start: 1991 PAP TESTING PAP TESTING [facility] Start: 1991 Screening for malignant neoplasm of cervix Pap Smear [facility] Start: 1989 DTaP/Tdap/Td vaccine (1 - Tdap) DTaP/Tdap/Td vaccine (1 - Tdap) [facility] [employer] Start: 1989 Hepatitis B vaccine (1 of 3 - 19+ 3-dose series) Hepatitis B vaccine (1 of 3 - 19+ 3-dose series) [facility] Start: 1989 Urine microalbumin profile [facility] Start: 1988 HEPATITIS C SCREENING HEPATITIS C SCREENING [facility] Start: 1988 Hepatitis C screening Hepatitis C screen [facility] [employer] Start: 1988 HIV SCREENING HIV SCREENING [facility] Start: 1985 HIV screening HIV screen [facility] Start: 1982 Depression Monitoring Depression Monitoring [employer] Start: 1982 Depression Screen Depression Screen [facility] Start: 1970 COVID-19 VACCINE (#1) COVID-19 VACCINE (#1) [facility] Start: 1970 HEPATITIS B (1 of 3 - 3-dose series) HEPATITIS B (1 of 3 - 3-dose series) [facility] Start: 1970 Hepatitis B Vaccine (1 of 3 - 3-dose series) Hepatitis B Vaccine (1 of 3 - 3-dose series) [facility] Start: 1970 Screening for malignant neoplasm of colon [facility] End: 09-18-2024 Basic Metabolic Panel w/ Reflex to MG Basic Metabolic Panel w/ Reflex to MG Lab Routine Daily for 3 Weeks starting 08/29/2024 until 09/18/2024, 2 completed [facility] Comment on above: Daily for 3 Weeks starting 08/29/2024 un til 09/18/2024, 2 completed End: 09-18-2024 CBC W Auto Differential panel - Blood CBC with Auto Differential Lab Routine Daily for 3 Weeks starting 08/29/2024 until 09/18/2024, 2 completed [facility] Comment on above: Daily for 3 Weeks starting 08/29/2024 un til 09/18/2024, 2 completed End: 07-29-2024 EGD - THERAPEUTIC, EUS, OR TUBE INTERVENTIONS EGD - THERAPEUTIC, EUS, OR TUBE INTERVENTIONS Endoscopy Routine Gastroparesis 1 Occurrences starting 07/29/2023 until 07/29/2024 [facility] Work Phone: Comment on above: 1 Occurrences starting 07/29/2023 until 07/29/2024 End: 05-16-2024 Esophageal motility study w/interp&rpt MANOMETRY ESOPHAGEAL Endoscopy Routine Nausea 1 Occurrences starting 05/16/2023 until 05/16/2024 [facility] Work Phone: Comment on above: 1 Occurrences starting 05/16/2023 until 05/16/2024 Esophageal motility study w/interp&rpt MANOMETRY ESOPHAGEAL Endoscopy Routine Nausea 05/25/2023 [facility] Work Phone: End: 06-14-2024 Gastric emptying imaging study NM GASTRIC EMPTYING SOLID Radiology Routine Nausea 1 Occurrences starting 05/16/2023 until 06/14/2024 [facility] Work Phone: Comment on above: 1 Occurrences starting 05/16/2023 until 06/14/2024 Glucose [Mass/volume ] in Serum or Plasma POCT glucose Point of Care Testing Routine 4X Daily until discontinued starting 08/28/2024 [facility] Comment on above: 4X Daily until discontinued starting Oxygen therapy [Minimum Data Set] Initiate Oxygen Therapy Protocol Respiratory Care Routine As Needed until discontinued starting 08/17/2024 [facility] Work Phone: Comment on above: As Needed until discontinued starting Oxygen therapy [Minimum Data Set] Initiate Oxygen Therapy Protocol Respiratory Care Routine As Needed until discontinued starting 08/28/2024 [facility] Work Phone: Comment on above: As Needed until discontinued starting Patient Education [facility] Work Phone: Patient referral [facility] Work Phone: SURGICAL PATHOLOGY [facility] Work Phone: Comment on above: Release Upon Ordering for 1 Occurrences starting 07/14/2023, 1 completed [facility] Immunizations Immunization Date Immunization Notes Care Provider [facility] 04-27-2024 zoster vaccine recombinant Kulwant Hodge MD Work Phone: [facility] 06-15-2022 SARS-CoV-2 (COVID-19 ) mRNAMUL.[id number] Yolanda Lou [facility] 06-09-2022 influenza, seasonal, injectable Kulwant Hodge MD Work Phone: [facility] 06-09-2022 influenza virus vaccine, unspecified formulation Nurse 2 Work Phone: [facility] 03-18-2022 SARS-CoV-2 mRNA (juruoqoqafo-ptrn-mft jett) vaccine Ospina SALGUSTAVO [facility] 11-06-2021 SARS-CoV-2 (COVID-19 ) mRNA BNT-162b2 vax Anai FORBES [facility] 05-06-2021 influenza virus vaccine, unspecified formulation JHOANA MELGOZA [facility] 02-26-2021 SARS-CoV-2 (COVID-19 ) mRNA BNT-162b2 vax JHOANA MELGOZA [facility] 02-05-2021 SARS-CoV-2 (COVID-19 ) mRNA BNT-162b2 vax Ospina Foodem [facility] Comment on above: Result Comment: 2021: [id number] NEGATED: Highlighted row has not occurred!04-14-2022 influenza virus vaccine, unspecified formulation Monique Marquez [facility] Payers Date Payer Category Payer Blue Cross Blue Shield BCBS [facility] [id number] 2022 Unknown RINA MARTINEZ PPO [id number] 2022-Present [phone] [facility] [id number] [place] [address] PPO [id number] 2018 Private Health Insurance [id number] 2018 Private Health Insurance [id number] .[id number] 1970 Unknown [id number] 2.16.840.1.095633.3.579.2 .647 1970 Unknown [id number] 2.16.840.1.911222.3.579.2 .593 1970 Unknown [id number] 2.16.840.1.579197.3.579.2 .593 1970 Unknown [id number] 2.16.840.1.871088.3.579.2 .593 1970 Unknown [id number] 2.16.840.1.166060.3.579.2 .593 1970 Unknown [id number] 2.16.840.1.647389.3.579.2 .593 1970 Unknown [id number] 2.16.840.1.397247.3.579.2 .593 1970 Unknown [id number] 2.16.840.1.574312.3.579.2 .593 1970 Unknown [id number] 2.16.840.1.231574.3.579.2 .593 1970 Unknown [id number] 2.16.840.1.981670.3.579.2 .593 1970 Unknown [id number] 2.16.840.1.084282.3.579.2 .593 1970 Unknown [id number] 2.16.840.1.197238.3.579.2 .593 1970 Unknown [id number] 2.16.840.1.849043.3.579.2 .593 1970 Unknown [id number] 2.16.840.1.489384.3.579.2 .593 1970 Unknown [id number] 2.16.840.1.028679.3.579.2 .593 1970 Unknown [id number] 2.16.840.1.733926.3.579.2 .593 1970 Unknown [id number] 2.16.840.1.293115.3.579.2 .593 1970 Unknown [id number] 2.16.840.1.173870.3.579.2 .593 1970 Unknown [id number] 2.16.840.1.040945.3.579.2 .593 1970 Unknown [id number] 2.16.840.1.617285.3.579.2 .593 1970 Unknown [id number] 2.16.840.1.354067.3.579.2 .593 1970 Unknown [id number] 2.16.840.1.260138.3.579.2 .356 1970 Unknown [id number] 2.16.840.1.348741.3.579.2 .356 1970 Unknown [id number] 2.16.840.1.709348.3.579.2 .1286 1970 Unknown [id number] 2.16.840.1.201146.3.579.2 .1286 1970 Unknown [id number] 2.16.840.1.167370.3.579.2 .1286 1970 Unknown [id number] 2.16.840.1.092497.3.579.2 .1286 1970 Unknown [id number] 2.16.840.1.217433.3.579.2 .176 1970 Unknown [id number] 2.16.840.1.768557.3.579.2 .175 1970 Unknown [id number] 2.16.840.1.080106.3.579.2 .727 1970 Unknown [id number] 2.16.840.1.457642.3.579.2 .727 1970 Unknown [id number] 2.16.840.1.862110.3.579.2 .727 1970 Unknown [id number] 2.16.840.1.702621.3.579.2 .727 1970 Unknown [id number] 2.16.840.1.075406.3.579.2 .727 1970 Unknown [id number] 2.16.840.1.353055.3.579.2 .727 1970 Unknown [id number] 2.16.840.1.495665.3.579.2 .727 1970 Unknown [id number] 2.16.840.1.689976.3.579.2 .727 1970 Unknown [id number] 2.16.840.1.017691.3.579.2 .727 1970 Unknown [id number] 2.16.840.1.654658.3.579.2 .1259 1970 Unknown [id number] 2.16.840.1.766795.3.579.2 .1259 1970 Unknown [id number] 2.16.840.1.832530.3.579.2 .1259 1970 Unknown [id number] 2.16.840.1.087196.3.579.2 .1259 1970 Unknown [id number] 2.16.840.1.702347.3.579.2 .727 1970 Unknown [id number] 2.16.840.1.424064.3.579.2 .727 1959 Medicaid [id number] 1959 Self-pay [id number] 1959 Unknown [id number] 1959 Unknown [id number] Medicare Medicare [id number] Medicare Medicare [id number] Unknown [id number] 2.16.840.1.682040.3.579.2 .531 Unknown [id number] 2.16.840.1.420969.3.579.2 .531 Unknown [id number] 2.16.840.1.775494.3.579.2 .531 Worker's Compensation [employer] Ins [facility] [id number] Social History Date Type Detail Facility Start: 12-03-2021 End: 02-16-2024 Tobacco smoking status Ex-smoker (finding) [facility] Start: 08-12-2020 End: 01-07-2025 Sex Assigned At Female [facility] Tobacco smoking status Never [facility] Start: 1970 Sex Assigned At Female [facility] End: 09-05-2011 History of tobacco use Current smoker [facility] Work Phone: End: 09-05-2011 History of tobacco use Cigarette Smoker [facility] Work Phone: Start: 04-28-2018 End: 07-13-2024 Tobacco use and exposure Smokeless tobacco non-user [facility] Work Phone: Start: 04-28-2018 End: 08-28-2024 Alcohol intake Current drinker of alcohol (finding) [facility] Start: 08-12-2020 End: 01-07-2025 History of Social function [facility] Start: 04-28-2018 End: 05-06-2023 Tobacco Comment still smokes [facility] Start: 04-28-2018 Alcohol Comment social [facility] Start: 1970 Sex Assigned At Not on file [facility] Start: 07-14-2023 Alcohol intake Ex-drinker (finding) [facility] Start: 06-08-2024 Tobacco smoking stat [facility] Never smoked tobacco [facility] Start: 07-13-2024 End: 01-07-2025 Alcoholic beverage intake Lifetime non-drinker (finding) [facility] Start: 08-15-2024 Alcohol Comment Rare [employer] Has the [employer], [employer], oil, or water company threatened to shut off services in your home in past 12Mo No [facility] How often to you hav e a drink containing alcohol? Never [facility] (I/We) worried yelena er (my/our) food would run out before (I/we) got money to buy more. Never true [facility] Start: 05-15-2015 End: 12-19-2024 Sex Female (finding) [facility] Sexual Orientation [facility] Goals Date Patient Goal Desired Activity /State Functional Status Date Assessment Result Facility 10-19-2024 Functional Status N/A [facility] 10-19-2024 Functional Status [facility] 02-16-2024 Functional Status N/A [facility] 02-19-2023 Functional Status N/A [facility] 07-22-2022 Functional Status N/A [facility] 04-14-2022 Functional Status N/A [facility] Clinical Notes 12-02-2021 to 02-16-2025 Note Date & Type Note Facility 02-16-2025 Hospital Discharg e instructions Follow Up Care 02/16/2025 18:54:04 With:Rambo Purcell Address: [address], [address] [phone] Business (1) When:02/19/2025 20:42:05 With:JUDI YOUSSEF Address: [address] [place] [phone] Business (1) When:Within 3 Day(s) [facility] 02-16-2025 Evaluation + Plan note Extrac jun from: Title:ED Note Author:Prosper Bergman DO Date:02/03 12/28 Dysphagia (R13.10: Dysphagia , unspecified) Gastritis (K29.70: Gastritis, unspecified, without bleeding) Orders: ondansetron, 4 mg = 2 mL, Injection, IV Push, Once, Stop date 02/16/25 19:01:00 EDT, STAT, Start date 02/16/25 19:01:00 EDT, 02/16/25 19:01:00 EDT ondansetron, 4 mg = 1 tab(s), Oral, q6hr, X 3 day(s), # 10 tab(s), Refills(s) 0, Pharmacy: [facility]/pharmacy #[id number], 170.2, cm, 02/16/25 18:59:00 EDT, Height/Length Dosing, 85.2, kg, 02/16/25 18:59:00 EDT, Weight Dosing pantoprazole, 40 mg = 10 mL, Injection, IV Push, Once, Stop date 02/16/25 19:01:00 EDT, STAT, Start date 02/16/25 19:01:00 EDT, 02/16/25 19:01:00 EDT promethazine 25 mg + Sodium Chloride 0.9% intravenous solution 50 mL, IV Piggyback, Once, Stop date 02/16/25 20:04:00 EDT, STAT, Start date 02/16/25 20:04:00 EDT, 153 mL/hr, Infuse over 20 minute(s), 02/16/25 20:04:00 EDT Sodium Chloride 0.9% intravenous solution 1,000 mL, 1,000 mL, IV, 1,000 mL/hr, STAT, Start date 02/16/25 19:01:00 EDT, 1 hour(s), Total volume (mL): 1,000, 85.2 kg, 2.01, m2 sucralfate, 1 gram = 10 mL, Oral, QID, # 280 mL, Refills(s) 0, Pharmacy: [facility]/pharmacy #[id number], 170.2, cm, 02/16/25 18:59:00 EDT, Height/Length Dosing, 85.2, kg, 02/16/25 18:59:00 EDT, Weight Dosing CBC w/ Auto Diff Comprehensive Metabolic Panel eGFR Extra Blue Tube Extra SST Tube Lipase Level XR Chest 2 Views [facility] [id number] NoteI was informed that the insurance declined treadmill nuclear stress test. Actually I wanted to order only routine treadmill stress test. Therefore I will switch the current order to only regular treadmill stress testUn[facility] History of Present illness Narrative* EUN Ashraf - 01/07/2025 2:20 PM EDT Images from the original note [...] Review Audit Reviewed by Sienna Murray MA (Flight Readiness Technician) on 01/07/25 at 1424 Medication Order Taking? Sig Documenting Provider Last Dose Status acarbose (Precose) 25 MG tablet [id number] Take 1 tablet (25 mg) by mouth in the morning and 1 tablet(25 mg) before bedtime. Kulwant Hodge MD Active aspirin 81 MG EC tablet [id number] Take 81 mg by mouth Daily Historical Provider, Active cholecalciferol (Vitamin D-3) 50 MCG (1999) capsule [id number] Take 1 capsule by mouth Daily Kalee Hodge MD Active dicyclomine (Bentyl) 20 MG tablet [id number] Take 1 tablet by mouth in the morning and 1 tablet in the evening and 1 tablet before bedtime. Kulwant Hodge MD Active hyoscyamine (Anaspaz,Levsin) 0.125 MG tablet [id number] Take 1 tablet by mouth every 6 (six) hours ifneeded Kulwant Hodge MD Active levETIRAcetam (Keppra) 750 MG tablet [id number] Take 1 tablet (750 mg) by mouth in the morning and 1 tablet (750 mg) before bedtime. EUN Ashraf Active lisinopril 20 MG tablet [id number] Take 20 mg by mouth Daily Kulwant Hodge MD Active metoprolol succinate XL (Toprol-XL) 50 MG 24 hr tablet [id number] Take 50 mg by mouth in the morning.Kulwant Hodge MD Active pantoprazole (ProtoNix) 40 MG EC tablet [id number] Take 40 mg by mouth in the morning. Take before meals. Kulwant Hodge MD Active sertraline (Zoloft) 50 MG tablet [id number] Take 50 mg by mouth in the morning. Kulwant Hodge MD Active Patient is here today for follow-up of seizure like activity, stroke like symptoms, and migraine. Pako following the plan of care established by [...] Recent and remote memory are intact. Speech isnormal. Language is fluent with no aphasia. 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 RLE Strength illopsoas, quadriceps, tibialis [...] visit: Seizure (CMS/HCC) Patient was evaluated at [facility] [place] for stroke like symptoms manifested as [...] staring episodes and episodes where she is non- responsive since her last appointment. This is happening a couple times a week per her report despite current keppra dose. She may have underlying MAYA that could be lowering seizure threshold. She has not heard anything regarding sche duling sleep study. History of obstructive sleep apnea Migraine without aura and without status migrainosus, not intractable (CMS/HCC) She was also treated for migraine and started on aspirin for secondary stroke prevention given the stroke like symptoms. She reports significant daytime fatigue. She has history of MAYA reportedly andhasn't used her CPAP in a few years. She continues to snore and have daytime fatigue. She is willing to retry a CPAP. She has not heard anything to schedule the sleep study. NEW: Dizziness Patient reports dizziness manifested as both lightheadedness and room spinning sensation that beganaround the time of her hospitalization in October 2024. She reports a history of vertigo and feelsit is a similar feeling. She did have brain MRI in the hospital that was nonacute. She also had MRAof the head as noted below with focal area of signal loss of the right carotid artery at the skull base thought to likely be artifactual rather than a moderate stenosis. Testing review from [facility] 10/[place]/[address]: revealed no acute findings [...] No tub bathing. No swimming alone. No swimmingin lakes or ponds. No babysitting small children and can call 911. No working from heights. No operating heavy equipment. I counseled patient on potential medication side effects Patient to follow up with this clinic in 6-8 weeks or sooner for new or worsening symptoms Nikki Ayoub PA-C documented in this encounterProgress West [id number] NoteBellevue Office Cardiology Clinic Note Reason for [...] Arrhythmia, Hypertension, and NSVT (nonsustained ventricular tachycardia) (CMS/[facility]). Surgical History She has a past [...] no lower extremity edema. (more content not included)...[facility]02-16-2025 NoteDischarge Summary Admission and Discharge Information Admitting Physician [...] 20's but no seizure activity in the wkwy31thp and not on med tx. -See above [...] symptoms have significantly improved and/or resolved. Patient iseating and drinking without complaints, denies being SOB, chest pain, pressure, palpitations or difficulty with voiding. Patient is eager to be discharged to home. --Other chronic medical conditions as outlined in note. Refer to d/c plan below: -Case reviewed and discussed with Dr. Lorenzo who is in agreement with current d/c plan. Case will be reviewed and discussed with PCP or provider relations advocate MD once the hospital doughnut machine operator is able to reach him/her.I spent a lengthy amount of time with [...] made to ensure accuracy, however, inadvertently computerized station air traffic control specialist mistakes may be present. Services Consulted Consult to Neurology - Ordered -- 10/19 (more content not included)...[facility]aritan HospitalComment on above:Result Comment: Electronically Signed By: Guerline WALLS\.br\Date and Time Signed: 10/20/24 16:06 EST\.br\Electronically Co-Signed By: Eliezer Lorenzo DO\.br\Date and Time Co-Signed: 10/21/24 15:34 [id number] Hospital Discharge instructions Patient Education 10/20/2024 15:59:25 Seizure, Adult, Vwps-kz-Gnrd Seizure, Adult A seizure is a sudden [...] Follow these instructions at home: Medicines Take jwdx-bda-obbzplu and prescription medicines only as told by [...] the [place]., ask your local department of [employer] vehicles when you can drive. Get a [...] away. Call your local emergency services (911 int [place] Do not wait to see if [...] medicines are used to treat seizures. Take vjye-byv-kjixcos and prescription medicines only astold by your doctor. This information is not intended to replace advice given to you by your health care provider. Make sure you discuss any questions you have with your health care provider. Document Revised: 02/25/2021 Document Reviewed: 02/27/2021 [employer] Patient Education 2023 [email or web address]. 10/20/2024 11:40:02 Vitamin B12 Deficiency, Djlm-zb-Xpbj Vitamin B12 Deficiency Vitamin B12 deficiency means [...] provider. Document Revised: 04/16/2022 Document Reviewed: 04/16/2022 [employer] Patient Education 2023 [email or web address]. 10/20/2024 11:40:02 Vitamin D Deficiency, Jjkr-ie-Qffg Vitamin D Deficiency Vitamin D deficiency is [...] dietitian for more information. General instructions Take zepg-cah-arlondt and prescription medicines only as told by [...] added to them, such as cereals, juices, andmilk. Taking vitamin D or a multivitamin that [...] provider. Document Revised: 2022 Document Reviewed: 2022 [employer] Patient Education 2023 [email or web address]. 10/20/2024 11:40:02 Vitamin D Test Vitamin D [...] (osteomalacia), thin or weak bones (osteoporosis), or otherbone disorders. To monitor treatment of osteoporosis or [...] measures how much of a substance called 25- hydroxyvitamin D is in yourblood. The body converts vitamin D to 25- hydroxyvitamin D in the liver. Measuring how much 25-hydroxyvitamin D is in your blood provides a good idea of your vitamin D levels. This is the most common t ype of vitamin D test. The 1,25-dihydroxyvitamin D test measures how much of a substance called 1,25- dihydroxyvitamin D isin your blood. The body converts vitamin D [...] including vitamins, herbs, eye drops, creams, and movu-bor-lcoghqe medicines. Any bleeding problems you have. Any [...] that you have too little vitamin D inyour body. This can range from slightly low [...] enough vitamin D. You need vitamin D tokeep your bones healthy and to support your [...] provider. Document Revised: 2022 Document Reviewed: 2022 [employer] Patient Education 2023 [email or web address]. 10/20/2024 11:40:02 Migraine Headache, Krzl-fh-Vqgo Migraine Headache A migraine headache is a [...] Follow these instructions at home: Medicines Take jelu-idg-emgwjbx and prescription medicines only as told by [...] migraine headaches. This can help you avoid thosethings. For example, write down: ?What you eat [...] for Headache and Migraine Patients (CHAMP): headachemigraine.org [place] Migraine Foundation: americanmigrainefoundation.org National Headache Foundation: headaches.org [...] provider. Document Revised: 04/18/2023 Document Reviewed: 04/18/2023 [employer] Patient Education 2023 [email or web address]. Follow Up Care 10/19/2024 17:04:31 With:JUDI YOUSSEF Address: [address] [place] [address] [phone] Business (1) When:1 to 2 days With:Randy BAKER, REGINALDO Baker Address: [place] [address] When:2 to 4 weeks [facility] 02-15-2025 NotePatient Education - Text Gastroenterology Vitamin B12 [...] provider. Document Revised: 04/16/2022 Document Reviewed: 04/16/2022 [employer] Patient Education ? 2023 [email or web address]. Neurology Seizure, Adult A seizure is a [...] liver problems. ??? Conditions (more content not included)...[facility] 10-20-2024 Evaluation + Plan noteExtracted from: Title:Consult Note-neurology Author:Rodney PERRY N ichole [...] deep vein thrombosis (DVT) prophylaxis (Z79.899: Other senior care (current) drug therapy) Abdominal pain (R10.9: Unspecified abdominal pain) Extracted from: Title:Admission H & P Author:Yovanny WALSL enee Date:10/19/[address] [facility] rec for all dx. 1. [...] deep vein thrombosis (DVT) prophylaxis (Z79.899: 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) -Lovenox, early ambulation Orders: [...] made to ensure accuracy, however, inadvertently computerized station air traffic control specialist mistakes may be present. Extracted from: Title:ED [...] Hospitalist for continued care NIH Stroke Scale [facility] [id number] NoteInterdisciplinary Note - PT PT Evaluation completed with an [facility] of . Pt was Independent for bed mobility and transfers. Pt was able to ambulate at Mod I level due to right bone pain from a previous fall on ice. Pt performing well this date. No further PT services neededWyandot [facility] Hospital02-15-2025 NotePatient Education - Text Gastroenterology Vitamin [...] provider. Document Revised: 04/16/2022 Document Reviewed: 04/16/2022 Elsevier Patient Education ? 2023 [employer]. Neurology Migraine Headache A migraine headache [...] chest pain (nitrogl (more content not included)... [facility]02-15-2025 NoteConsultation Note Chief Complaint stroke Reason [...] light touch on the right. Cerebellar exam: Npomjr-do-ydpi reveals no ataxia. Gait is deferred. The neurological exam was performed by a healthcare professional which was witnessed and supervisedby me via video telemedicine visit consented to by the patient or appropriate patient inbound sales representative. 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 release hand: Obeys both correctly = 0 [...] 17:06:00) Lymph Auto: 33.3 % (10/19/24 17:06:00) [place] Auto: 7.2 % (10/19/24 17:06:00) Eos Auto: 3.9 % (10/19/24:06:00) Basophil Auto: 0.6 % (10/19/24:06:00) Neutro Absolute: 2.9 E9/L (10/19/24 17:06:00) Lymph Absolute: 1.8 E9/L (10/19/24 17:06:00) [place] Absolute: 0.4 E9/L (10/19/24:06:00) Eos Absolute: 0.2 E9/L (10/19/24:06:00) Basophil Absolute: 0 E9/L (10/19/24:06:00) PT: 10.7 second(s) (10/19/24:06:00) INR: 0.96 (10/19/24:06:00) PTT: 40.8 second(s) High (10/19/24 17:06:00) Glucose Lvl: 107 mg/dL (10/19/24 17:06:00) BUN: 22 mg/dL High (10/19/24:06:00) Creatinine: 0.8 mg/dL (10/19/24:06:00) eGFR: 87 mL/min/1.73 m2 (10/19/24:06:00) BUN/Creat Ratio: 28 High (10/19/24:06:00) Sodium Lvl: 140 mmol/L (10/19/24 17:06:00) Potassium Lvl: 3.4 mmol/L Low (10/19/24:06:00) Chloride: 110 mmol/L (10/19/24 17:06:00) CO2: 24 mmol/L (10/19/24 17:06:00) AGAP: 9 mEq/L (10/19/24:06:00) Calcium Lvl: 8.9 [...] 93 mg/dL (10/19/24 17:10:00) POC Device SN: [id number] (10/19/24 17:10:00) POC User ID: [id number] (10/19/24 17:10:00) POC Username: POC Userna (more content not included)...[facility] HospitalComment on above:Result Comment: Electronically Signed By: [...] Arrhythmia, Hypertension, and NSVT (nonsustained ventricular tachycardia) ([facility]). Surgical History She has a past [...] 08/14/2019 HCT 31.2 (L) (more content not included)...[facility] 08-30-2024 History of Present illness Narrative* Bobbi [...] 08/29/2024 10:11 AM EST Physical Therapy Facility/Department: [facility] RENAL//MED SURG Physical Therapy Initial [...] amount this morning. 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 [facility] Internal Medicine Teaching Residency Program Inpatient Daily Progress Note Patient: Constantino Cardoso Date of : 1970 Acct: [id number] Room: 0324/0324-01 Admit date: 08/28/2024 Today's date: [...] Hypertension Gastroparesis and dysphagia - G-POEM at [facility] in 08/27 Mitral valve prolapse GERD Migraines and severe obeisty - s/p Cvjy-qf-P-bypass 2018 presents with a chief complaint of [...] amount this morning. 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 She had x-ray KUB and was [...] Problem: Intestinal obstruction (HCC) CT scan at [facility] -dilated large bowel with air-fluid level Transferred to [facility] -x-ray KUB: Nonobstructive bowel gas pattern, [...] Juan Dhaliwal MD Internal Medicine Resident, PGY-1 [facility]; [place], [place] 08/29/2024, 6:54 AM Associated attestation - [...] this chart was generated using voice recognition [employer] dictation software. Although every effort was made to ensure the accuracy of this automated station air traffic control specialist, some errors in station air traffic control specialist may have occurred. * Miguel Wild MD [...] Miguel Wild MD documented in this encounterBon [facility] Discharge instructions* Discharge Instructions* Sky [...] sent through Care Everywhere. * Bowel Obstruction (Ukrainian) documented in this encounterBon [facility] Hospital Discharge instructions* Discharge Instructions* Larisa [...] if your caregiver approves them. Only take lqul-bhv-eneisze or prescription medicines for pain, discomfort, or [...] 08/22/2006 Document Revised: 02/20/2013 Document Reviewed: 12/20/2012 [facility] [place] Patient Information 2013 [email or web address] [facility] .EGD DISCHARGE INSTRUCTIONS Activity: Rest today. [...] or neck pain documented in this encounterBon [facility]11[facility] History of Present illness Narrative* Kulwant [...] 3 months (around 10/13/2024). documented in this encounterProgress West [id number] History of Present illness Narrative* Kulwant Hodge [...] Medication Instructions cholecalciferol (Vitamin D-3) 50 MCG (1999 [place]) [...] 3 weeks (around 07/11/2024). documented in this encounterProgress West [id number] NoteBellevue Office Cardiology Clinic Note Reason for [...] due to vasovagal r (more content not included)...[facility] 05-11-2024 Procedure [facility]08-22-2024 Evaluation note* Author Jennie Ayon [facility] Authored April 26, 2024 9: 26am [...] twice or three times daily if needed. [facility] Work Phone: 1(509) 113-367207-15-2024 NoteBellevue Office Cardiology Clinic Note Reason for [...] hiatal hernia and acid (more content not included)...[facility] 02-16-2024 Evaluation + Plan note Diagnostic Tests Pending * Urine Culture 02/16/24 [facility]06-12-2024 NoteBellevue Office Cardiology Clinic Note Reason [...] valve prolapse, and NSVT (nonsustained ventricular tachycardia) ([facility]). Surgical History She has a past [...] 04/30/2019 PROT 6.3 08/ (more content not included)...[facility] 08-25-2023 NoteHNO ID: [id number] Author: Ellis Mayberry DO Service: ? Author [...] August 25, 2023 TIME: 2:59 PM CSN: [id number] Clinic [facility]12-[facility] NoteQ3 Patient Name: Constantino Cardoso Procedure Date: 08/25/2023 2:38 PM Date of : 1970 Admit Type: Outpatient Age: 53 Gender: Female Note Status: Finalized Attending MD: Marques Bradley MD, [id number] Procedure: Upper GI endoscopy Indications: Gastroparesis- for [...] the patient. Procedure Code(s): --- Professional --- 37763 Diagnosis Code(s): --- Professional --- K44.9 Z98.890 CPT copyright 2020 [employer]. All rights reserved. Attending Participation: I personally performed the entire procedure. Scope In: 2:59:10 PM Scope Out: 3:37:20 PM MD Marques Rainey MD 08/25/2023 3:41:00 PM This report has been signed electronically by Marques Bradley MD Number of Addenda: 0 Note Initiated On: 08/25/2023 2:38 [facility]11-24-2023 Note HNO ID: [id number] Author: Evelyn Black RN Service: ? Author Type: Registered Nurse Type: Progress Notes Filed: 07/29/2023 11:18 AM Note Text: [facility]11-24-2023 History of Present illness Narrative* Evelyn Black RN - 07/29/2023 11:17 AM EST e documented [facility]Day[facility] Instructions* Patient Instructions* Americo Montalvo [...] High Protein, Atkins, Boost Glucose Control, Owyn, [place] Breakfast Essentials Light Start mixed with Fairlife fat free or 1% milk. -Check www.bariatricfusion.com or www.ThinkGrid.com for additional options. Take small bites, eat slowly, chew food well, and always eat protein first. Separate eating and drinking by 30 min before and after. Aim for >64 oz water/day. Take small sips and avoid straws. Liquids should be sugar-free, no calories, no carbonation, no caffeine. Protein juarez (ztzeqgd1p, Isopure, Gatorade protein), electrolyte drinks (Gatorade or Powerade zero, sugar free liquid IV or Drip Drop), sugar free jello and sugarfree popsicles are also acceptable. Nutrition Monitoring & Evaluation: increase PO intake >75% of estimated needs, weight check and patient update Need for Follow up: based on surgery status documented in this encounterDayton [facility]11-17-2023 NoteHNO ID: [id number] Author: Americo Montalvo RD Service: ? Author Type: Registered Dietitian Type: Progress Notes Filed: 07/22/2023 4:06 PM Note Text: [facility] Nutrition Therapy: Virtual Consult - Initial Assessment I have communicated my name and active licensure. The patient?s identity and physical location were verified at the time of this visit. Either the patient or their legal inbound sales representative has been informed of the [...] High Protein, Atkins, Boost Glucose Control, Owyn, [place] Breakfast Essentials Light Start mixed with Fairlife fat free or 1% milk. -Check www.bariatricfusion.com or www.ThinkGrid.Mercantila for additional options. Take small bites, eat slowly, chew food well, and always eat protein first. Separate eating and drinking by 30 min before and after. Aim for >64 oz water/day. Take small sips and avoid straws. Liquids should be sugar-free, no calories, no carbonation, no caffeine. 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 [place] body weight: 159 lbs. 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 Recommendation was a GPOEM. Will consult with surgeon next week regarding next POC for pt. Pt VU. documented in this encounterDayton [facility]11-17-2023 History of Present illness Narrative* Americo Mnotalvo, RD - 07/22/2023 1:15 PM EST [facility] Nutrition Therapy: Virtual Consult - Initial Assessment I have communicated my name and active licensure. The patient s identity and physical location wereverified at the time of this visit. Either the patient or their legal inbound sales representative has been informed of the [...] High Protein, Atkins, Boost Glucose Control, Owyn, [place] Breakfast Essentials Light Start mixed with Fairlife [...] calories, no carbonation, no caffeine. Protein juarez (acyoaeg8o, Isopure, Gatorade protein), electrolyte drinks (Gatorade or [...] significant for adult onset weight gain (maintains [id number] lbs, highest 220 lbs in 2018). 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 [place] body weight: 159 lbs. 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 Procedure Code(s): --- Professional --- 00349 Diagnosis Code(s): --- Professional --- K44.9 K31.89 Z98.890 R10.13 CPT copyright 2020 [employer]. All rights reserved. Attending Participation: I personally performed the entire procedure. Scope In: 10:40:19 AM Scope Out: 10:50:37 AM MD Marques Rainey MD 07/14/2023 10:53:09 AM This report has been signed electronically by Marques Bradley MD Number of Addenda: 0 Note Initiated On: 07/14/2023 10:24 [facility]11-09-2023 Nurse Note* Mónica Spaulding RN - [...] RN In Department: GASTROENTEROLOGY documented in this encounterDayton [facility] Center11-08-2023 NoteHNO ID: [id number] Author: Brennen Shaw, PhD Service: ? Author Type: Physician Type: Progress Notes Filed: 07/19/2023 10:07 AM Note Text: [facility]IAT[facility] SURG[facility] BEHAVIORAL HEALTH EVALUATION DATE OF SERVICE: July 13, 2023 TIME OF SERVICE: 2:10 PM-3:29 PM COST CENTER: O CPT CODE: - 40968 Brief Emotional/Behavioral Assessment with scoring/documentation - [id number] Virtual Psych Diagnostic Eval BILLING CODE: ENDO PSYL MAIN 27913/Marco DATE OF FIRST SERVICE THIS CYCLE: July 13, 2023 SESSION #: 1 BMI Surgical Pathway Visit type: Bariatric Surgeon Visit I have communicated my name and active licensure. The patient's identity and physical location were verified at the time of this visit. Either the patient or their legal inbound sales representative has been informed of the risks and benefits of -- and alternatives to -- treatment through a remote evaluation and consents to proceed with the evaluation remotely. Zo for [facility] IDENTIFYING INFORMATION: Ms. Constantino Cardoso is [...] during the binge episod (more content not included)...[facility]09-22-2023 Miscellaneous Notes* Telephone Encounter - Evelyn [...] Pt agreed with plan. documented in this encounterDayton [facility] Center09-21-2023 NoteHNO ID: [id number] Author: Nabil Bell RT(R) Service: Nuclear Medicine [...] 715 PATIENT DISCHARGED TO: Ambulatory patient, left [place] department area. A Diagnostic radioactive procedure has taken place, with no further precautions necessary other than routine body substance precautions. More information regarding radiation safety can be found using this link: [email or web address] SIGNATURE: RT Charmaine(R) PATIENT NAME: Constantino Cardoso DATE: May 26, 2023 TIME: 7:17 AM PAGER/CONTACT #:[facility]09-20-2023 NoteHNO ID: [id number] Author: Pedro Gonzalez LPN Service: ? Author Type: LICENSED NURSE Type: Progress Notes Filed: 05/25/2023 4:15 PM Note Text: Name: Constantino Cardoso [facility]#: [id number] Date: 05/25/2023 ESOPHAGEAL MANOMETRY TEST Indication: Nausea [...] patient tolerated the test without difficulty. .[facility] History of Present illness Narrative* Pedro Gonzalez LPN - 05/25/2023 3:55 PM EDT Name: Constantino Cardoso [facility]#: [id number] Date: 05/25/2023 ESOPHAGEAL MANOMETRY TEST Indication: Nausea [...] difficulty. .Pedro Gonzalez LPN documented in this encounterDayton [facility] Center09-11-2023 Miscellaneous Notes* Telephone Encounter - [...] after a gastric bypass. documented in this encounterDayton [facility] Center09-01-2023 NoteHNO ID: [id number] Author: Marques Bradley MD Service: ? Author [...] for internal providers or letter via the [employer] for external providers. Chief Complaint: [...] Marques Bradley MD Date: 05/12/2023 Time: 8:15 [facility]08-28-2023 Miscellaneous Notes* Telephone Encounter - Evelyn Black RN - 05/02/2023 9:12 AM EDT [facility] SPECIALTY CARE COORDINATION TELEPHONE ENCOUNTER Chief complaint & duration dysphagia. Type of procedure: hernia repair hiatal with Dr. MORTENSEN in [place] February of 2019. Sending OP notes Nursing assessment (subjective/objective) . pain in chest area and getting worse Went to [place] ED March 2023 who told her she needed a stent in her heart..but her c/o were difficulty swallowing and sent pt home and referred her to [facility] and was there in the hospital for [...] appt after records obtained documented in this encounterDayton [facility] Center08-22-2023 Miscellaneous Notes* Telephone Encounter - Evelyn Black RN - 04/26/2023 2:00 PM EDT [facility] SPECIALTY CARE COORDINATION TELEPHONE ENCOUNTER Second attempt to contact this pt. Pt has upcoming information, and unable to complete any chart prep, history, symptoms, testing etc. LVM and call back number. documented in this encounterDayton [facility] Medical Center08-17-2023 Evaluation note* Encounter Date Diagnosis Assessment Notes Treatment Notes Treatment Clinical Notes Apr, Esophageal dysmotility (ICD-10 - K22.4) Apr, Esophageal spasm (ICD-10 - K22.4) Apr, Nausea & vomiting (ICD-10 - R11.2) Patinet reports that she still has nausea but no vomiting Patient reports that she is to see Dr. Strong at [facility] Patient is to start dicyclomine 20 mg 4 times daily sent to pharmcy today RTO 6 weeks Apr, Dysphagia (ICD-10 - R13.10) [facility] Other 08-14-2023 Miscellaneous Notes* Telephone Encounter - Evelyn Black RN - 04/18/2023 2:13 PM EDT [facility] SPECIALTY CARE COORDINATION TELEPHONE ENCOUNTER Contacted pt regarding a referral from Dr Martinez's office. LVM and call back number. documented in this encounterDayton [facility] Medical Center08-03-2023 Miscellaneous Notes* Telephone Encounter - Yancy Lopez - 04/07/2023 1:15 PM EDT Referral rec'd documented in this encounterDayton Va Medical Center06-17-2023 Evaluation + Plan note Extracted from: Title:ED Note Author:kaye Isabellasophia Ibrahim Date :02/19/23 Right wrist sprain (S63.501A [...] pain, # 20 tab(s), Refills(s) 0, Pharmacy: [facility]/pharmacy #[id number], 170, cm, 02/19/23 0:56:00 EDT, Height/Length Dosing, 90.2, kg, 02/19/23 0:56:00 EDT, Weight Dosing XR Elbow 3+ Views Right XR Wrist 3+ Views Right [facility]06-17-2023 Hospital Discharge instructions Patient Education 02/19/2023 [...] are safe for you. General instructions Take emvx-uek-smpkxzg and prescription medicines only as told by [...] provider. Document Revised: 12/29/2020 Document Reviewed: 12/29/2020 [employer] Patient Education 2022 [email or web address]. Follow Up Care 02/19/2023 00:51:16 With:JUDI YOUSSEF Address: [address] [place] [address] [phone] Business (1) When:02/22/2023 Comments:Take the pain medication as prescribed as needed for pain. Please follow-up with your primary care doctor in the next 2 to 3 days for further evaluation management. Please return to the ED for any new or worsening symptoms or [facility]08-10-2022 Hospital Discharge instructions Patient Education 04/14/2022 [...] water added (diluted fruit juice). Eat bland, dlbf-eo-hcyjzz foods in small amounts as you are able. These foods include bananas, applesauce, rice, lean meats, toast, and crackers. Avoid fluids that contain a lot of sugar or caffeine, such as energy drinks, sports drinks, and soda. Avoid alcohol. Avoid spicy or fatty foods. General instructions Take hrwf-dna-ejjgpda and prescription medicines only as told by your health care provider. Drink enough fluid to keep your urine pale yellow. Wash your hands often using soap and water. If soap and water are not available, use hand hadoop architect. Make sure that all people in your [...] eating and drinking to prevent dehydration. Take vwvv-jse-vvfzgeu and prescription medicines only as told by [...] 08/22/2006 Document Revised: 12/14/2019 Document Reviewed: 01/30/2019 [employer] Patient Education 2019 [email or web address]. Follow Up Care 01/28/2022 13:58:23 With:Monique Marquez CNP Address: When:3 months [facility] 05-26-2022 Hospital Discharge instructions [...] drinks. ?Tomatoes and foods made with tomatoes. ?Tumalo or spicy foods. ?Chocolate and peppermint. Do not drink alcohol. General instructions Take xnno-zff-mbgblnm and prescription medicines only as told by [...] 11/11/2004 Document Revised: 12/18/2018 Document Reviewed: 12/18/2018 [employer] Patient Education 2019 [email or web address]. Follow Up Care 01/13/2022 12:36:01 With:Monique Marquez CNP Address: When:3 months [facility] 05-09-2022 Hospital Discharge instructions Patient Education 01/11/2022 09:56:58 Endoscopy, Care After Procedure [facility] End[facility] Care After Procedure Please read the instructions outlined below and refer to this sheet in the next few weeks. These discharge instructions provide you with general information on caring for yourself after you leave [facility] hospital. Your doctor may also give you [...] Document Re-Released: 02/13/2007 ExitCare Patient Information 2010 [employer]. 01/11/2022 09:56:58 Pearce's Esophagus Pearce's Esophagus Pearce's [...] drinks. ?Tomatoes and foods made with tomatoes. ?Tumalo or spicy foods. ?Chocolate and peppermint. Do not drink alcohol. General instructions Take riox-ggt-igvgljl and prescription medicines only as told by [...] 11/11/2004 Document Revised: 12/18/2018 Document Reviewed: 12/18/2018 [employer] Patient Education 2020 [email or web address]. Follow Up Care 12/03/2021 15:32:26 With:Anai FORBES Address: [address] [place] [address] Business (1) When:1 to 2 weeks Comments:Call for any problems. [facility]03-30-2022 Hospital Discharge instructions Follow Up Care 12/02/2021 10:32:32 With:JHOANA MELGOZA PA-C, URL Address: [address] [place] [place] [address] When: Unknown [facility] Evaluation + Plan note Future Appointments Appointment Date:01/11/2022 09:40:00 AM Scheduled Provider: Location:[facility] Appointment Type:Surgery FT [facility] [place] Evaluation + Plan note Future Appointments Appointment Date:04/14/2022 03:00:00 PM Scheduled Provider:Monique Marquez CNP Location:[facility] Appointment Type:[facility] Follow Up Future Scheduled Tests Radiology* NM Gastric Emptying Study 01/28/22 [facility] Evaluation + Plan note Future Appointments Appointment Date:04/14/2022 03:00:00 PM Scheduled Provider:Monique Marquez CNP Location:[facility] Appointment Type:[facility] Future Appointments Appointment Date:04/20/2022 12:00:00 PM Scheduled Provider: Location:.[facility] Appointment Type:US Abdominal/Pelvis () Appointment Date:06/02/2022 09:45:00 AM Scheduled Provider:Anai FORBES MD Location:[facility] Appointment Type:[facility] Follow Up Future Scheduled Tests Laboratory* Fecal WBC Lactoferrin 04/14/22 * Giardia lamblia, Direct Detection EIA 04/14/22 * O & P Exam, Routine 04/14/22 * Clostridium difficile by PCR 04/14/22 * Enteric Panel by PCR 04/14/22 * CBC w/ Auto Diff 04/14/22 * Comprehensive Metabolic Panel 04/14/22 Radiology* US Abdomen Complete 04/20/22 [facility] Evaluation + Plan note Future Appointments Appointment Date:06/02/2022 09:45:00 AM Scheduled Provider:Anai FORBES MD Location:[facility] Appointment Type:[facility] Follow Up Diagnostic Tests Pending * O & P Exam, Routine 04/29/22 * Giardia lamblia, Direct Detection EIA 04/29/22 [facility] assessment information available [facility] Work Phone: Evalumzxcs noteNo [facility] [employer] Other Evaluation note* Diagnosis Nausea- Primary Nausea alone Dysphagia, unspecified type documented in this encounter [facility] note* Diagnosis Nausea Nausea alone documented in this encounter [facility] note* Diagnosis Dysphagia, unspecified type Gastroparesis History of Pricilla fundoplication Personal history of surgery to other organs documented in this encounter [facility] note* Diagnosis Gastroparesis- Primary Malnutrition of moderate degree (HCC) Malnutrition of moderate degree Gastro-esophageal reflux disease without esophagitis Esophageal reflux Overweight (BMI 25.0-29.9) Overweight Dietary counseling and surveillance Dietary surveillance and counseling documented in this encounter [facility] note* Diagnosis Gastroparesis- Primary documented in this encounter [facility] note* Diagnosis Onset Date Resolution Status Abdominal adhesions acute Dysphagia acute Small bowel obstruction [facility] Work Phone: Evaluation note* Diagnosis Hypoglycemia- Primary Hypoglycemia, unspecified Encounter for dietary consultation [facility] Diagnosis Hypoglycemia Hypoglycemia, unspecified documented in this encounter [facility] Healthcare[facility] note* Diagnosis Other dysphagia- Primary Other dysphagia documented in this encounter [facility] note* Diagnosis Ileus (HCC)- Primary Paralytic ileus Ileus (HCC) Paralytic ileus Generalized abdominal pain Abdominal pain, generalized Hypokalemia Hypopotassemia Primary hypertension Unspecified essential hypertension Gastroesophageal reflux disease with esophagitis without hemorrhage Major depressive disorder Major depressive disorder, single episode, unspecified Hypokalemia Hypopotassemia Generalized abdominal pain Abdominal pain, generalized documented in this encounter [facility] note* Diagnosis Seizure (CMS/HCC)- Primary Other convulsions History of obstructive sleep apnea Migraine without aura and without status migrainosus, not intractable (CMS/HCC) documented in this encounter [facility] HealthcareEvaluation note* Diagnosis Seizure (CMS/HCC)- Primary Other convulsions History of obstructive sleep apnea Migraine without aura and without status migrainosus, not intractable (CMS/HCC) Dizziness Dizziness and giddiness documented in this encounter [facility] HealthcareHistory and physical note Author Jennie Ayon [facility] May 11, 2024 10:16am Note Date/Time May 11, 2024 10:16am [facility] ENTER [address] [place] [address] Gastroenterology H&P Signed Patient: Constantino Cardoso MR#: [id number] : 1970 Acct:[id number] Age/Sex: 53 / F Adm Date: 4 Loc: Room: Type: [facility] Attending Dr: Jennie Ayon MD Copies [...] signed by Jennie Ayon MD> 05/11/24 1016 [facility] Work Phone: History general Narrative - Reported* Type Description Date Medical History mitral valve prolapse Medical History gallstones Medical History Acid reflux Medical History Hiatal Hernia Medical History headache Surgical History hysterectomy Surgical History cholecystectomy Surgical History hiatal hernia repair Hospitalization History see above Hospitalization History kindey infections hospit alized x3 [facility] Other Hospital course Narrative No data available for this section [facility] Hospital Discharge instructions No data available for this section [facility] Additional Instructions Follow-up with your primary care doctor Return to ED if develop worsening [facility] Work Phone: Hospital Discharge instructions Additional Instructions If your symptoms return/worsen or you develop any further concerns or symptoms please see your doctor or return to the emergency department immediately. Please be sure to continue follow-up with the cleaning supervisor and with your scheduled EGD and further testing.[facility] Work Phone: Hospital Discharge instructions Additional [...] problems. -Follow up with PCP. -Office number [phone]. [facility] Work Phone: Progress note No data available for this section [facility] for referral (narrative)* Diagnostic Procedure Only (Routine) - Authorized Specialty Diagnoses / Procedures [facility] Referred To Contact MOLECULAR & FUNCTIONAL IMAGING Diagnoses Nausea Procedures NM GASTRIC EMPTYING SOLID [place]STRIC [place] [address] [place], [place] [id number] Molecular & Functional Imaging [address] [place] [address] Referral ID Status Reason Start Date Expiration Date Visits Requested Visits Authorized [id number] Authorized Auto-Generat ed Referral 05/16/2023 06/14/2024 1 1 * Outpatient Procedure (Routine) - Authorized Specialty Diagnoses / Procedures Referred By [facility] Referred To Contact [facility] Diagnoses Nausea Procedures MANOMETRY ESOPHAGEAL ESOPHAGEAL MOTILITY STUDY W/INTERP&[place] [address] [place], [place] [id number] [facility] [place] [address] [place] [address] Referral ID Status Reason Start Date Expiration Date Visits Requested Visits Authorized [id number] Authorized Auto-Generat ed Referral 05/16/2023 05/16/2024 1 1 [facility] for referral (narrative)* Outpatient Procedure (Routine) - Closed Specialty Diagnoses / Procedures [facility] Referred To Contact [facility] Diagnoses Dysphagia, unspecified type Gastroparesis History of Pricilla fundoplication Procedures EGD - THERAPEUTIC, EUS, OR TUBE INTERVENTIONS ESOPHAGOGASTRODUODENOSCOPY TRANSORAL DIAGNOSTIC STOMACH SURGERY PROCEDURE UNLISTED Marques Bradley MD [address] [place] [address] [address] Referral ID Status Reason Start Date Expiration Date V isits Requested Visits Authorized [id number] Closed Auto-Generate d Referral 05/27/2023 05/27/2024 1 1 [facility] for referral (narrative)* Outpatient Procedure (Routine) - Authorized Specialty Diagnoses / Procedures Referred By Eileen mueller Referred To Contact [facility] Diagnoses Gastroparesis Procedures EGD - THERAPEUTIC, EUS, OR TUBE INTERVENTIONS ESOPHAGOGASTRODUODENOSC OPY TRANSORAL DIAGNOSTIC STOMACH SURGERY PROCEDURE UNLISTED Marques Bradley MD [address] [place] [address] [address] Referral ID Status Reason Start Date Expiration Date Visits Requested Visits Authorized [id number] Authorized Auto-Generat ed Referral 07/29/2024 1 1 [facility] for visit Narrative* Outpatient Procedure (Routine) - Closed Specialty Diagnoses / Procedures Referred By Contsavanah mueller Referred To Contact [facility] [place] Diagnoses Dysphagia, unspecified type Gastroparesis History of Pricilla fundoplication Procedures EGD - THERAPEUTIC, EUS, OR TUBE INTERVENTIONS ESOPHAGOGASTRODUODENOSCOPY TRANSORAL DIAGNOSTIC STOMACH SURGERY PROCEDURE UNLISTED Marques Bradley MD [address] [place] [address] [address] Referral ID Status Reason Start Date Expiration Date V isits Requested Visits Authorized [id number] Closed Auto-Generate d Referral 05/27/2023 05/27/2024 1 1 [facility] Summary Purpose Family History No [...] 3:16 PM Hospital Course Note MR#: [id number] [facility] Pt. Name: Constantino Cardoso Admitted: 08/13/2019 [...] was transferred to [facility] from [facility] with acute abdominal pain. The pain has started on Tuesday while at work. 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 The pain feels similar to when she was here in April during her stay. During that time, she was told there was nothing left for Dr. Mortensen to do and she has been following up with GI specialist in [place]. She is actually due to have an [...] SWALLOW W VIDEO Jose Miguel Lucero MD [address] [facility] [address] [place] [address] Referral ID Status Reason Start Date Expiration Date Visits Re quested Visits Authorized [id number] Open 08/17/2024 08/17/2025 1 1 Additional Source Comments INFORMATION SOURCE (unrecogn ized section and content) DATE CREATED AUTHOR 06/03/2020 [facility] DATE CREATED AUTHOR AUTHOR'S ORGANIZ ATION 01/17/[address] [facility] DATE CREATED AUTHOR AUTHOR'S ORGANIZ ATION 04/02/2023 [facility] DATE CREATED AUTHOR AUTHOR'S ORGANIZ ATION 08/26/2023 [facility] DATE CREATED AUTHOR AUTHOR'S ORGANIZ ATION 12/03/2023 [facility] DATE CREATED AUTHOR AUTHOR'S ORGANIZ ATION 02/17/2024 [facility] DATE CREATED AUTHOR AUTHOR'S ORGANIZ ATION 02/19/2024 [place] [facility] DATE CREATED AUTHOR AUTHOR'S ORGANIZ ATION 08/19/2024 [facility] DATE CREATED AUTHOR AUTHOR'S ORGANIZ ATION 09/05/2024 [facility] DATE CREATED AUTHOR AUTHOR'S ORGANIZ ATION 10/21/2024 [facility] DATE CREATED AUTHOR AUTHOR'S ORGANIZ ATION 10/22/2024 [facility] DATE CREATED AUTHOR AUTHOR'S ORGANIZ ATION 10/29/2024 [place] [facility] DATE CREATED AUTHOR AUTHOR'S ORGANIZ ATION 12/14/2024 [facility] DATE CREATED AUTHOR AUTHOR'S ORGANIZ ATION 12/22/2024 [facility] DATE CREATED AUTHOR AUTHOR'S ORGANIZ ATION 01/10/2025 [facility] DATE CREATED AUTHOR AUTHOR'S ORGANIZ ATION 02/05/2025 [facility] DATE CREATED AUTHOR AUTHOR'S ORGANIZ ATION 02/18/2025 [facility] DATE CREATED AUTHOR AUTHOR'S ORGANIZ ATION 02/22/2025 [facility] Care Team (unrecognized sect ion and content) Team Status: Active Member Role Status Dates Judi Youssef SPLASH LINE OPERATOR-C Primary Care Provider Active Team Status: Active Member Role Status Dates Judi Youssef SPLASH LINE OPERATOR-C Primary Care Provider Active Start: April 13, 2024 Juarez Cruz DO Attending Provider Active Sta rt: April 13, 2024 Team Status: Inactive Member Role Status Dates Judi Youssef SPLASH LINE OPERATOR-C Primary Care Provider Active Start: April 26, 2024 End: April 26, 2024 Jennie Ayon MD Attending Provider Active Start: April 26, 2024 End: April 26, 2024 Team Status: Inactive Member Role Status Dates Judi Youssef SPLASH LINE OPERATOR-C Primary Care Provider Active Start: May 11, 2024 End: May 11, 2024 Jennie Ayon MD Attending Provider Active Start: May 11, 2024 End: May 11, 2024 Team Status: Active Member Role Status Dates Judi Youssef SPLASH LINE OPERATOR-C Primary Care Provider Active Start: May 11, 2024 Jennie Ayon MD Attending Provider, Other Provider Active Start: May 11, 2024 Team Status: Inactive Member Role Status Dates Judi Youssef SPLASH LINE OPERATOR-C Primary Care Provider Active Start: June 19, 2024 End: June 19, 2024 Jennie Ayon MD Attending Provider Active Start: June 19, 2024 End: June 19, 2024 Team Status: Inactive Member Role Status Dates Judi Youssef SPLASH LINE OPERATOR-C Primary Care Provider Active Conner Griffith DO Emergency Provider Active Team Status: Inactive Member Role Status Dates Jennie Ayon MD Attending Provider Active Judi Youssef SPLASH LINE OPERATOR-C Primary Care Provider Active Team Status: Inactive Member Role Status Dates Judi Youssef SPLASH LINE OPERATOR-C Primary Care Provider Active Pete Thakkar DO Emergency Provider Active Job Analyst Relationship Specialty Start Date End Date Joel Alejandra PCP - General Family Medicine 04/26/18 Rafa Rangel [address] [place] [address] Referring General Surgery 04/26/18 Job Analyst Relationship Specialty Start Date End Date Joel Alejandra PCP - General Family Medicine 04/26/18 Rafa Rangel [address] [place] [address] Referring General Surgery 04/26/18 Job Analyst Relationship Specialty Start Date End Date Joel Alejandra PCP - General Family Medicine 04/26/18 Rafa Rangel [facility] [address] [place] [address] Referring General Surgery 04/26/18 Job Analyst Relationship Specialty Start Date End Date Joel Alejandra PCP - General Family Medicine 04/26/18 Rafa Rangel [facility] [address] [place] [address] Referring General Surgery 04/26/18 Job Analyst Relationship Specialty Start Date End Date Joel Alejandra PCP - General Family Medicine 04/26/18 Rafa Rangel [address] [place] [address] Referring General Surgery 04/26/18 Job Analyst Relationship Specialty Start Date End Date Joel Alejandra PCP - General Family Medicine 04/26/18 Rafa Rangel [address] [place] [address] Referring General Surgery 04/26/18 Job Analyst Relationship Specialty Start Date End Date Joel Alejandra PCP - General Family Medicine 04/26/18 Rafa Rangel [address] [place] [phone] Referring General Surgery 04/26/18 Job Analyst Relationship Specialty Start Date End Date Joel Alejandra PCP - General Family Medicine 04/26/18 Rafa Rangel [address] [place] [address] Referring General Surgery 04/26/18 Job Analyst Relationship Specialty Start Date End Date Joel Alejandra PCP - General Family Medicine 04/26/18 Rafa Rangel [address] [place] [address] Referring General Surgery 04/26/18 Job Analyst Relationship Specialty Start Date End Date Joel Alejandra PCP - General Family Medicine 04/26/18 LyssaRafa major [address] [place] [address] [address] [place] [address] Referring General Surgery 04/26/18 Job Analyst Relationship Specialty Start Date End Date Joel Alejandra PCP - General Family Medicine 04/26/18 LyssaRafa major [address] [place] [address] [address] [place] [address] Referring General Surgery 04/26/18 Job Analyst Relationship Specialty Start Date End Date Unallocated, Miracle Jesus MD [address] [place] [id number] PCP - General 04/25/23 Judi Youssef MD [address] [place], [place] [id number] Referring Physician Family Medicine 04/25/23 Job Analyst Relationship Specialty Start Date End Date Unallocated, Miracle Jesus MD [address] [place] [id number] PCP - General 04/25/23 Judi Youssef MD [address] [place], [place] [id number] Referring Physician Family Medicine 04/25/23 Job Analyst Relationship Specialty Start Date End Date Unallocated, Miracle Jesus MD [address] [place] [id number] PCP - General 04/25/23 Judi Youssef MD [address] [place], [place] [id number] Referring Physician Family Medicine 04/25/23 Job Analyst Relationship Specialty Start Date End Date Unallocated, Miracle Jesus MD [facility] [place] [address] PCP - General 04/25/23 Judi Youssef MD [address] [place] [address] Referring Physician Family Medicine 04/25/23 Job Analyst Relationship Specialty Start Date End Date No, Pcp PCP - General 08/17/24 Job Analyst Relationship Specialty Start Date End Date Judi Youssef S, VASCULAR RADIOLOGIST - LEATHER TOGGLER [address] [place] [address] PCP - General 08/29/24 Job Analyst Relationship Specialty Start Date End Date Unallocated, Miracle Jesus MD [address] [place] [address] PCP - General 04/25/23 Judi Youssef MD [address] [place] [address] Referring Physician Family Medicine 04/25/23 Nikki Ayoub PA [address] [place] [id number] Physician Nutrition Program Instructor Neurology 11/26/24 Team Status: Inactive Member Role Status Dates Nicanor Perez MD Attending Provider Active Start : December 18, 2024 End: December 18, 2024 Job Analyst Relationship Specialty Start Date End Date Unallocated, Miracle Jesus MD [facility] [place] [address] PCP - General 04/25/23 Judi Youssef MD [address] [place] [address] Referring Physician Family Medicine 04/25/23 Nikki Ayoub PA [address] [place] [address] Physician Nutrition Program Instructor Neurology 11/26/24 Job Analyst Relationship Specialty Start Date End Date Unallocated, Noms MD [address] [place] [address] PCP - General 04/25/23 Judi Youssef MD [address] [place] [address] Referring Physician Family Medicine 04/25/23 Nikki Ayoub PA [address] [place] [address] Physician Nutrition Program Instructor Neurology 11/26/24 Goals (unrecognized section and content) Goals may be documented in a n alternate section REASON FOR VISIT (unrecogniz ed section and content) Reason Comments Appointment Reason Comments Band Splitter - Other Reason Onset Date Comments Procedure 05/25/2023 Manometry Esopha geal Specialty Diagnoses / Procedures Referred By Contac t Referred To Contact [facility] Diagnoses Nausea Procedures MANOMETRY ESOPHAGEAL ESOPHAGEAL MOTILITY STUDY W/INTERP&RPT Marques Bradley MD [address] [place] [address] [facility] [place] [address] [place], [place] [id number] Referral ID Status Reason Start Date Expiration Date V isits Requested Visits Authorized [id number] Closed Auto-Generate d Referral 05/16/2023 05/16/2024 1 1 Reason Comments Results Reason Comments Patient Education Assessment Reason Comments Hypoglycemia NEW Reason Comments Hypoglycemia Specialty Diagnoses / Procedures Referred By Contac t Referred To Contact Diagnoses Other dysphagia Other dysphagia [R13.19] Procedures GA EGD TRANSORAL BIOPSY SINGLE/MULTIPLE GA ESOPHAGOGASTRODUODENOSCOPY TRANSORAL DIAGNOSTIC GA EGD BALLOON DILATION ESOPHAGUS <30 MM DIAM ESOPHAGOGASTRODUODENOSCOPY BIOPSY Jose Miguel Lucero MD [address] [place] [address] [facility] [address] [place] [address] Referral ID Status Reason Start Date Expiration Date Visits Re quested Visits Authorized [id number] 1 1 Reason Comments Abdominal Pain Specialty Diagnoses / Procedures Referred By Contac t Referred To Contact Diagnoses Ileus (HCC) Intestinal obstruction (HCC) Obdulio Justice MD [address] [address] [facility] [address] [place] [address] Referral ID Status Reason Start Date Expiration Date Visits Re quested Visits Authorized [id number] 1 1 Reason Comments Hospital Follow-up Reason Comments Seizures Source Comments (unrecognize d section and content) In the event this informatio n is protected by the Federal Confidentiality of Alcohol and Drug Abuse Patient Records regulations: The Federal rules restrict any use of the information to criminally investigate or prosecute any alcohol or drug abuse patient.[facility] the event this information is protected by the Federal Confidentiality of Alcohol and Drug Abuse Patient Records regulations: The Federal rules restrict any use of the information to criminally investigate or prosecute any alcohol or drug abuse patient.[facility] the event this information is protected by the Federal Confidentiality of Alcohol and Drug Abuse Patient Records regulations: The Federal rules restrict any use of the information to criminally investigate or prosecute any alcohol or drug abuse patient.[facility] the event this information is protected by the Federal Confidentiality of Alcohol and Drug Abuse Patient Records regulations: The Federal rules restrict any use of the information to criminally investigate or prosecute any alcohol or drug abuse patient.[facility] the event this information is protected by the Federal Confidentiality of Alcohol and Drug Abuse Patient Records regulations: The Federal rules restrict any use of the information to criminally investigate or prosecute any alcohol or drug abuse patient.[facility] the event this information is protected by the Federal Confidentiality of Alcohol and Drug Abuse Patient Records regulations: The Federal rules restrict any use of the information to criminally investigate or prosecute any alcohol or drug abuse patient.[facility] the event this information is protected by the Federal Confidentiality of Alcohol and Drug Abuse Patient Records regulations: The Federal rules restrict any use of the information to criminally investigate or prosecute any alcohol or drug abuse patient.[facility] the event this information is protected by the Federal Confidentiality of Alcohol and Drug Abuse Patient Records regulations: The Federal rules restrict any use of the information to criminally investigate or prosecute any alcohol or drug abuse patient.[facility] the event this information is protected by the Federal Confidentiality of Alcohol and Drug Abuse Patient Records regulations: The Federal rules restrict any use of the information to criminally investigate or prosecute any alcohol or drug abuse patient.[facility] the event this information is [...] or prosecute any alcohol or drug abuse patient.[facility] the event this information is protected by the Federal Confidentiality of Alcohol and Drug Abuse Patient Records regulations: The Federal rules restrict any use of the information to criminally investigate or prosecute any alcohol or drug abuse patient.[facility] Scheduled Active and Recently Administ [...] Change - Provider: Chung Renee APRN - PILLOW FILLER) PRN Medication Order 08/15/2024 08/16/2024 08/17/2024 0.9 [...] RN) 0942 (Given - Provider: Bobbi Renee, RN) enoxaparin (LOVENOX) injection 40 mg [...] 0942 (Given - Provider: Bobbi Renee, VICKY) ketorolac (TORADOL) injection 30 mg [...] Sky Pearce MD) 0942 (Given - Provider: Bbobi Renee RN) pantoprazole (PROTONIX) 40 mg in [...] Oconnor RN) 0942 (Given - Provider: Bobbi Renee RN)2099 (Due) sertraline (ZOLOFT) tablet 50 [...] Brown Richard RN)2341 (Rate/Dose Verify - Provider: Bronw Richard RN) 0610 (Rate/Dose Change - Provider: [...] Oral, EVERY 8 HOURS PRN, Starting on 12/24/24 at 1516, Until Discontinued, Nausea, Vomiting polyethylene [...] Midline or Central Line = 20 mL/lumen 3041 (Given - Provider: Brown Richard RN) Linked [...] BE BASED ON THE PRIMARY CLINICAL RECORDS. [employer] [facility]. provides no warranty or guarantee of the accuracy or completeness of information in this document.
== END 2025-02-26 22:54 | disposition home or self-care (01) ==
LOC: SLEEP 22:54
PROVIDERS: PCP Physician Assistant; Visit Provider Physician Assistant
DX: G47.33 Obstructive sleep apnea (adult) (pediatric) (principal)
CPT/HCPCS: 95810

== ENCOUNTER 2025-03-14 18:33 | Emergency (ER) | payer BC, SELFPAY ==
--- OUTSIDE RECORDS SUMMARY | 2025-01-09 06:43 | XMS_ITS ---
Author Organization The [facility] in [place] Address [address] [place] [address] Care Team Providers Care Hat Finishing Materials Preparer Name Role Phone Judi Tapia Primary Care Provider REASON FOR VISIT Levetiracetam increased Medications Medication SIG (Take, Route, Fr equency, Duration) Notes Start Date End Date Status levETIRAcetam 1000 MG 1 tablet Orally ev sruthi 12 hrs for 7 days Active Encounters Encounter Location Date Provider Diagnosis [facility] [address] [place] [address] 01/09/2025 Judi Taipa Plan Of Treatment Medication Medication Name Sig Start Date Stop Date Notes levETIRAcetam 1000 MG 1 tablet Orally ev sruthi 12 hrs for 7 days Progress Notes * Oly CARDOSODOB:[birth year] (54 yo F)Acc No.[id number]:01/09/2025 Patient: Oly JONES :1970 A ge:54 Y S ex:Female Address:[address] [place], [address] * Refills Refill levETIRAcetam Tablet Disintegrating Soluble, 1000 MG, Orally, 14 Tablet, 1 tablet, every 12 hrs, 7 days, Refills=0 * true * Date: Generated for Printi ng/Faxing/eTransmitting on: 0 03/14/2025 06:41 PM EDT
--- OUTSIDE RECORDS SUMMARY | 2025-01-10 10:13 | XMS_ITS ---
Author Organization The [facility] in [place] Address [address] [place] [address] Care Team Providers Care Supervisor Patching Name Role Phone Judi Tapia Primary Care Provider REASON FOR VISIT chart update Medications Medication SIG (Take, Route, Fr equency, Duration) Notes Start Date End Date Status Lisinopril 20 MG 1 tablet Orally Once a day for 30 days 03/20/2024 Active Encounters Encounter Location Date Provider Diagnosis [facility] [address] [place] [address] 01/10/2025 Judi Tapia Plan Of Treatment Medication Medication Name Sig Start Date Stop Date Notes Lisinopril 20 MG 1 tablet Orally Once a day for 30 days Progress Notes * Oly CARDOSODOB:[birth year] (54 yo F)Acc No.[id number]:01/10/2025 Patient: Oly JONES :1970 A ge:54 Y S ex:Female Address:[address] [place], [address] * Refills Refill Lisinopril Tablet, 20 MG, Orally, 30, 1 tablet, Once a day, 30 days * true * Date: Generated for Printi ng/Faxing/eTransmitting on: 0 03/14/2025 06:42 PM EDT
--- OUTSIDE RECORDS SUMMARY | 2025-02-07 06:30 | XMS_ITS ---
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 Name Role Phone Judi Tapia Primary Care Provider [phone] Allergies Allergen (clinical drug ingredient) Drug/Non Drug Allergy documented on EMR Reaction Allergy Type Onset Date Status Flexeril (uncoded) anaphylaxis Allergy Active Penicillin (uncoded) arm swelling Allergy Active Results Component Value Reference Range Notes UA (Urinalysis, Dipstix only - w/o micro) Reviewed date:02/07/2025 10:34:26 AM Interpretation: Performing Lab: Notes/Report: COLOR yellow Yellow - Melissa - CLARITY clear Clear - Clear GLUCOSE - 0 - 133 MG/DL ALBUMIN - NEG - NEG MG/DL BILIRUBIN - NEG - NEG MG/DL SPECIFIC GRAVITY 1.010 1.001 - 1.035 KETONES - NEG - NEG MG/DL BLOOD, UR trace PH, UR 5 5 - 9 UROBILNOGEN - 0.2 - 1 MG/DL NITRITE - NEG - NEG ESTERASE (PETER) + NEG - NEG MG/DL REASON FOR VISIT sent home from work BP high, 165/101 bp at work, patient works at the [employer], patientis co a left bleeding ear infection and sharp pains in her lower back Medications Medication SIG (Take, Route, Frequency, Duration) Notes Start Date End Date Status Lisinopril 40 MG 1 tablet Orally Once a day for 30 days 03/20/2024 Active Dicyclomine HCl 20 MG 1 tablet Orally Th ree times a day Active Aspirin 81 81 MG 1 tablet Orally Once a day Active Daily Vitamin Active Ketorolac Tromethamine 10 MG 1 tablet wi th food or milk as needed Orally every 6 hrs Active Reglan 5 MG 1 tablet before meal s and at HS Orally qid for 30 days 02/07/2025 Active Promethazine HCl 25 MG 1 tablet as neede d Orally q6h for 30 days 12/05/2023 Active Sertraline HCl 50 MG TAKE 1/2 TABLET MARY LY FOR 1 WEEK THEN INCREASE TO 1 TABLET DAILY for 90 Active MiraLax Active Pantoprazole Sodium 40 MG TAKE 1 TABLET BY MOUTH EVERY DAY IN THE EVENING for 90 Active Levsin/SL 0.125 MG 1 tablet under the tongue and allow to dissolve as needed for abd pain Sublingual AC and HS 12/05/2023 Active levETIRAcetam 1000 MG 1 tablet Orally ev sruthi 12 hrs for 7 days Active Social History Tobacco Use: Social History Observation Description Date Details (start date - stop date) Never Smoker NA - NA Tobacco Use/Smoking Question Answer Notes Patient is a nonsmoker AUDIT-C (Standard) Question Answer Notes Did you have a drink containing alcohol in the p ast year? No Points 0 Interpretation Negative Problems Problem Type SNOMED Code ICD Code Onset Dates Problem Status W/U Status Risk Notes Problem Hypertension (55162119) HTN (hypertens ion) (I10) Active confirmed Vital Signs Blood pressure systolic 158 mm Hg 02/08/20 25 Blood pressure diastolic 90 mm Hg 025 Height 67 in 02/07/2025 Weight 187.8 lbs 02/07/2025 BMI 29.41 kg/m2 02/07/2025 Encounters Encounter Location Date Provider Diagnosis [facility] [address] [place] [address] 02/07/2025 Judi Tapia UTI (urinary tract infection) N39.0 ; HTN (hypertension) I10 and Functional dyspepsia K30 Assessments Encounter Date Diagnosis (ICD Code) Assessment Notes Treatment Notes Treatment Clinical Notes Section Notes 02/07/2025 UTI (urinary tract infection) (ICD-10 - N39.0) 02/07/2025 HTN (hypertension) (ICD-10 - I10) increase LIsinopril dose to 40 bp check 1-2 weeks 02/07/2025 Functional dyspepsia (ICD-10 - K30) phenergan not helping reglan has helped in past Plan Of Treatment Medication Medication Name Sig Start Date Stop Date Notes Lisinopril 40 MG 1 tablet Orally Once a day for 30 days Reglan 5 MG 1 tablet before meal s and at HS Orally qid for 30 days 02/07/2025 Treatment Notes Assessment Notes HTN (hypertension) increase LIsinopril dose to 40 bp check 1-2 weeks Functional dyspepsia phenergan not helping reglan has helped in past Pending Test Test Name Order Date UA (URINALYSIS, COMPLETE) 02/07/2025 Urine Culture 02/07/2025 Next Appt Details Follow Up: prn,2 Weeks, Reas on: Progress Notes * Oly CARDOSODOB:[birth year] (54 yo F)Acc No.[id number]:02/07/2025 Progress Note Patient: Oly JONES Provider: Cesia Tapia ([facility]), 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 sent home from work BP high. 2. 165/101 bp at work, patient works at the [employer], patient is co a left bleeding ear infection and sharp pains in her lower back. * HPI: G eneral: both ears hurting for couple , left worse than right bloody drainage with qtips BP high not feeling great some back pain, ? UTI. * ROS: G eneral/Constitutional: Feeling Poorly a dmits. F ever d enies. H eadache d enies. W eight loss d enies. O phthalmologic: Discharge d enies. E ye Pain d enies. I tching and redness d enies. E NT: Patient admits b ilateral ear discomfort. N bob congestion d enies. N bob discharge d enies. S ore throat d enies. C ardiovascular: Chest tightness/ heavy pressure d enies. R apid heart rate d enies. S welling of extremities d enies. C hest pain d enies. ? R espiratory: Productive cough d enies. C hest pain d enies. C ough d enies. S hortness of breath d enies. W heezing d enies. ? G astrointestinal: Abdominal pain d enies. C onstipation d enies. D ecreased appetite d enies. D iarrhea d enies. N ausea a dmits. V omiting d enies. G enitourinary: Urinary incontinence d enies. H esitancy a dmits.?Painful urination d enies. M usculoskeletal: Back pain a dmits low back. N sarika pain d enies.?Muscle aches d enies. S kin: Rash d enies. S kin lesion(s) d enies. ? * Active Problem List K22.4 Dyskinesia of esopha domingo Modified On:03/31/2023U Status:confirmed K57.92 Diverticulitis Modified On:02/07/2018U Status:confirmed K30 Functional dyspepsia Modified On:04/08/2023U Status:confirmed K56.7 Ileus Modified On:10/18/2023U Status:confirmed K56.609 SBO (small bowel obs truction) Modified On:12/05/2023 Status:confirmed F32.9 Depression Modified On:12/30/2023U Status:confirmed K21.9 Gastro-esophageal re flux Modified On:01/03/2024 Status:confirmed K31.84 Gastroparesis Modified On:01/03/2024U Status:confirmed E55.9 Vitamin D deficiency Modified On:01/04/2024U Status:confirmed M51.36 Lumbar degenerative disc disease Modified On:01/05/2024U Status:confirmed R00.0 Tachycardia Modified On:01/20/2024U Status:confirmed K21.9 GERD (gastroesophage al reflux disease) Modified On:01/24/2024U Status:confirmed E44.0 Moderate protein mal nutrition Modified On:01/24/2024U Status:confirmed D70.9 Neutropenia Modified On:01/24/2024U Status:confirmed D50.9 Anemia, iron deficie ncy Modified On:01/24/2024/U Status:confirmed E83.42 Hypomagnesemia Modified On:01/24/2024/U Status:confirmed E16.2 Hypoglycemia Modified On:04/27/2024/U Status:confirmed R00.2 Palpitation Modified On:05/15/2024/U Status:confirmed N39.0 UTI (urinary tract i nfection) Modified On:10/01/2024/U Status:confirmed I10 HTN (hypertension) Modified On:02/07/2025/U Status:confirmed * Medical History: M itrovalve prolapse, Acute diverticulitis, Dyskinesia of esophagus. * Surgical History: G allbladder , Hysterectomy , Hernia Repair . * Hospitalization/Major Diagno stic Procedure: A bd Pain, Vomiting 03/25/2023, bowel obstruction 10/2023, bowel obstruction 11/26, Bowel Obstruction- [facility] sent to [facility] 08/2024. * Family History: F ather: , Cancer. M other: alive. B johner(s): alcohol abuse. S ister(s): alive, thyroid disease, diagnosed with Diabetes mellitus without mention of complication, type II or unspecified type, not stated as uncontrolled, Unspecified essential hypertension. S on(s): alive, alcohol abuse. D eliazarer(s): alive. 2 brother(s) , 2 sister(s) . 2 son(s) , 2 daughter(s) . . * Social History: T obacco Use: T obacco Use/Smoking P atient is a n onsmoker D rug/Alcohol: A LARS-C (Standard) D id you have a drink containing alcohol in the past year? N o P oints 0 I nterpretation N egative * Medications: T aking Aspirin 81(Aspirin) 81 MG Tablet Delayed Release 1 tablet Orally Once a day , Taking Daily Vitamin , Taking Dicyclomine HCl 20 MG Tablet 1 tablet Orally Three times a day , Taking Ketorolac Tromethamine 10 MG Tablet 1 tablet with food or milk as needed Orally every 6 hrs , Taking levETIRAcetam 1000 MG Tablet Disintegrating Soluble 1 tablet Orally every 12 hrs , Taking Levsin/SL(Hyoscyamine Sulfate) 0.125 MG Tablet Sublingual 1 tablet under the tongue and allow to dissolve as needed for abd pain Sublingual AC and HS , Taking Lisinopril 20 MG Tablet 1 tablet Orally Once a day , Taking MiraLax , Taking Pantoprazole Sodium 40 MG Tablet Delayed Release TAKE 1 TABLET BY MOUTH EVERY DAY IN THE EVENING , Taking Promethazine HCl 25 MG Tablet 1 tablet as needed Orally q6h , Taking Sertraline HCl 50 MG Tablet TAKE 1/2 TABLET DAILY FOR 1 WEEK THEN INCREASE TO 1 TABLET DAILY , Medication List reviewed and reconciled with the patient * Allergies: P enicillin: arm swelling, Flexeril: anaphylaxis. Objective: * Vitals: W t:187.8lbs, Ht: 67 in, BP:158/90mm Hg, BMI:29.41Index, Ht-cm: 170.18 cm, Wt-k.19 kg. * Examination: G eneral Examinations: GENERAL APPEARANCE: a lert and oriented, i n no acute distress. EYES: c onjunctiva normal, sclera non-icteric. EARS: e xternal auditory canals are patent. Tympanic membranes are pearly cummings and mobile. NOSE: n ormal external appearance. LUNGS: c lear to auscultation bilaterally. CARDIO: r egular rate and rhythm, S1, S2 normal. ABDOMEN: s oft, nontender. MUSCULOSKELETAL: G ait and station normal. SKIN: s cab to right side abdomen, no surrounding redness.? Assessment: * Assessment: 1. H TN (hypertension) - I10 (Primary) 2 . U TI (urinary tract infection) - N39.0 3 . F unctional dyspepsia - K30 Plan: * Treatment: 2. U TI (urinary tract infection) L AB: UA (URINALYSIS, COMPLETE) L AB: Urine Culture L AB: UA (Urinalysis, Dipstix only - w/o micro) (Collection Date & Time - 02/07/2025) 3. F unctional dyspepsia Start Reglan Tablet, 5 MG, 1 tablet before meals and at HS, Orally, qid, 30 days, 120 Tablet, Refills 0. Notes: phenergan not helping reglan has helped in past * Labs: * L ab: UA (Urinalysis, Dipstix only - w/o micro) (Collection Date & Time - 02/07/2025) Value Reference Range C OLOR yellow Yellow - Melissa - * C LARITY clear Clear - Clear * G LUCOSE - 0 - 133 MG/DL * A LBUMIN - NEG - NEG MG/DL * B ILIRUBIN - NEG - NEG MG/DL * S PECIFIC GRAVITY 1.010 1.001 - 1.035 * K ETONES - NEG - NEG MG/DL * B LOOD, UR trace * P H, UR 5 5 - 9 * U ROBILNOGEN - 0.2 - 1 MG/DL * N ITRITE - NEG - NEG * E STERASE (PETER) + NEG - NEG MG/DL * Procedure Codes: 8 1002 URINALYSIS WO MICRO * Preventive Medicine: Screenings/Counseling: B IA ACTION PLAN Above Normal BMI Follow-up D ietary management education, guidance, and counseling * Follow Up: p rn,2 Weeks * * Electronically signed by Edelmira Tapia , SEEDLING PULLER, DYE AND CHEMICAL COORDINATOR.BUFFING MACHINE OPERATOR SEMIAUTOMATIC.[id number] on 02/08/2025 at 01:22 PM EDT Sign off status: Completed Visit Status: C HK (Check Out) true * Provider: Cesia Tapia ([facility]), BUFFING MACHINE OPERATOR 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 UTI Examination Category Sub-Category Detail Notes Category Not es General Examinations GENERAL APPEARANCE: alert a nd oriented, in no acute distress EYES: conjunctiva normal, sclera non-icteric EARS: external auditory ca nals are patent. Tympanic membranes are pearly cummings and mobile NOSE: normal external appe arance THROAT: CARDIO: regular rate and rhy thm, S1, S2 normal LUNGS: clear to auscultatio n bilaterally ABDOMEN: soft, nontender SKIN: scab to right side a bdomen, no surrounding redness BACK: MUSCULOSKELETAL: Gait and station nor mal LYMPH NODES:
--- OUTSIDE RECORDS SUMMARY | 2025-02-28 09:40 | XMS_ITS | Encounter Summary ---
Author Organization [facility] Address [address] [place] [address] Care Team Providers Care Medical Data Analyst Name Role Phone Judi Tapia REJI Primary Care Provider [phone] Reason for Visit * Reason Comments follow up stress test Had routine stress test last month. Chest Pain Still having chest p ain but attributes this to her hiatal hernia. She has upcoming EGD and colonoscopy. Shortness of Breath Valve Disorder Hypertension PCP increased her li sinopril from 10mg daily to 40mg daily. Says it was running very high. Encounter Details Date Type Department Care Team (Late st Contact Info) Description 02/28/2025 9:40 AM EDT Office Visit [facility] [address] [place] [address] Elio Heart MD [address] [place] [address] Other chest pain (Primary Dx); CA (dyspnea on exertion); Palpitations; Sinus tachycardia; Essential hypertension; Pure hypercholesterolemia ; Obstructive sleep apnea; Overweight (BMI 25.0-29.9); Former smoker Social History Tobacco Use Types Packs/Day Years [...] Physically or Sexually Abused Not on file Comments Unknown Sex and Gender Information Value Date Recorded Sex Assigned at Not on file Legal Sex Female 11:53 PM EDT Gender Identity Not on file Sexual Orientation Not on file documented as of this encounter Last Filed Vital Signs Vital Sign Reading Time Taken Comments Blood Pressure 136/82 02/28/2025 9:40 AM EDT Pulse 57 02/28/2025 9:40 AM EDT Temperature - - Respiratory Rate - - Oxygen Saturation 96% 02/28/2025 9:40 AM EDT Inhaled Oxygen Concentration - - Weight 85.7 kg (189 lb) 02/28/2025 9:40 AM EDT Height 170.2 cm (5' 7 ) 02/28/2025 9:40 AM EDT Body Mass Index 29.6 02/28/2025 9:40 AM EDT documented in this encounter Progress Notes * Elio Heart MD - 02/28/2025 9:40 AM EDT Images from the original note were not included. [facility] [place] [facility] Note Reason for cardiology visit: Patient here for follow up on chest pain, dyspnea on exertion, palpitation, hypertension and hyperlipidemia HPI: 02/28/2025 Patient states that she has been doing well. She denies any chest discomfort at rest or with exertion. She reports occasional gastric pain due to worsening acid reflux. She denies exertional dyspnea,orthopnea or paroxysmal nocturnal dyspnea. She denies dizziness, syncope or near syncope. She denies palpitations, legs edema or discomfort on exertion. 12/28/2024 Patient is here today for follow-up visit. She reports that on 12/18/2024 she went to the emergency room because of difficulty of swallowing which she had in the past. She reports occasional little substernal gastric pain which can occur with or without exertion and usually lasts about 5 minutes, noradiation, no other associated symptoms. It is not [...] checked her blood pressure at the time andit was little high and her heart rate [...] that she has been doing better. Her bloodpressure at home has been better and most of the time in the range of 120/60-70. She has couple measurements which were little high. Also she states that her palpitation and shortness of breath are much better. She denies orthopnea or paroxysmal nocturnal dyspnea or dizziness or legs edema or leg discomfort on exertion. She denies any chest discomfort. 03/19/2024 Oly Mendiola is a 54 y.o. female who is here today for follow-up visit after she was started on Toprol XL 50 mg daily. She states that the palpitation and shortness of breath are better but she still has palpitation and when she checks her blood pressure it is on the high side but her pulse isusually in the 70s. She denies any chest [...] Arrhythmia, Hypertension, and NSVT (nonsustained ventricular tachycardia) ([facility]). Surgical History She has a past surgical [...] morning and at bedtime., Disp: , Rfl: aspirin 81 mg EC tablet, Take 81 mg by mouth in the morning., Disp: , Rfl: levETIRAcetam (Keppra) 750 mg [...] PSYCH: appropriate mood, affect, and judgement. Labs: 12/18/2024 White blood count 5.7, hemoglobin 12, hematocrit 36.9, platelets 328 Sodium 140, potassium 3.7, BUN 14, creatinine 0.76, GFR above 60, glucose 104, calcium 9 Total bilirubin 0.4, AST 16, ALT 17, alk phos 145, total protein 6.6, albumin 1.1 04/13/2024 white blood count 7.7, hemoglobin 11.9, hematocrit 37, platelets Sodium 141, potassium 3.5, BUN 14, creatinine 0.87, GFR above 60, glucose 106, calcium 9.3 Total bilirubin 0.5, AST 19, ALT 28, alk phos 143, 01/02/2024, HbA1c 5.8% Triglyceride 80, cholesterol 194, LDL 102, HDL 76 Vitamin D7.5 TSH 1.6 Last Images: EKG 09/28/2024 showed sinus bradycardia, heart rate 49 bpm otherwise normal EKG EKG 11/27/2023 showed sinus bradycardia, otherwise normal EKG EKG 06/06/2023 showed normal sinus rhythm, normal EKG 7-day event monitor 09/17/2024 through 10/01/2024 5-day Holter monitor 01/06/2024 Echo 03/13/2024 Pulmonary function test 03/13/2024 Treadmill stress test 01/18/2025 Assessment and Plan: Chest pain, not totally typical, occurs at rest and with exertion She also reports symptoms of difficulty swallowing and worsening acid reflux which could be contributing to chest pain Treadmill stress test 01/18/2025 negative for ischemia Palpitations, better controlled Previously Holter monitor showed only sinus tachycardia could represent POTS and 1 event of ventricular run recorded at 12:53 AM which I think is due to vasovagal reaction going to junctional rhythm resulting in ventricular escape rhythm probably due to sleep apnea. Repeat event monitor did not show significant arrhythmia at the time of her symptom She is on Toprol-XL Dyspnea on exertion, echo showed normal left ventricle systolic and diastolic function without significant valvular heart disease. Her PFT did not show significant pulmonary etiology. It is better after her blood pressure has been under good control and losing weight History of mitral valve prolapse per patient report not noted on current echo, she has mild mitral regurgitation Hypertension, on Toprol-XL 50 mg daily and lisinopril 40 mg daily. It appears well-controlled Sleep apnea, on CPAP every night. She had recent sleep study and her CPAP settings need to be adjusted Overweight, BMI 29.6 kg/m??, she lost about 40 to 50 pounds due to hiatal hernia and acid reflux and she is trying to keep the weight down Former smoker 2 packs/day for about 20 years and she quit in 2012 Hiatal Hernia and GERD, s/p [place] hernia surgery. She reports recurrent hernia History of bowel obstruction History of gastric surgery for gastroparesis at [facility] History of COVID infection last year Plan: Continue current medications including aspirin, metoprolol, and lisinopril. She was advised to continue to avoid caffeine and alcohol and to increase her fluids intake to about 2 L a day The patient was advised to wear CPAP every night Check fasting lipids as annual check Patient was advised to continue her effort to lose weight by following low- calorie low-carb diet and exercise. She was advised to walk about 1 mile a day 5 days a week Follow-up with me in 6 months Elio Heart MD,FACC documented in this encounter Plan of Treatment Scheduled Orders Name Type Priority Associated Diagnoses Orde r Schedule Lipid panel Lab Routine Pure hypercholesterolemia Expected: 02/28/2025 (Approximate), Expires: 02/28/2026 ALT Lab Routine Pure hypercholesterolemia Expected: 02/28/2025 (Approximate), Expires: 02/28/2026 AST Lab Routine Pure hypercholesterolemia Expected: 02/28/2025 (Approximate), Expires: 02/28/2026 documented as of this encounter Visit Diagnoses Diagnosis Other chest pain- Primary CA (dyspnea on exertion) Other dyspnea and respiratory abnormality Palpitations Sinus tachycardia Other specified cardiac dysrhythmias Essential hypertension Unspecified essential hypertension Pure hypercholesterolemia Obstructive sleep apnea Obstructive sleep apnea (adult) (pediatric) Overweight (BMI 25.0-29.9) Overweight Former smoker Personal history of tobacco use, presenting hazards to health documented in this encounter Care Teams Medical Data Analyst Relationship Specialty Start Date End Date Judi Tapia CNP [facility], [address] [place] [id number] PCP - General Family Medicine 02/14/24 documented as of this encounter
[2025-03-14 18:38] VITALS: BP 137/89; PULSE 68; TEMP 37.2; O2SAT 97; BMI 27.9
--- OUTSIDE RECORDS SUMMARY | 2025-03-14 18:41 | XMS_ITS | Clinical Summary ---
Author Organization [facility] Address [address] [place] [address] Phone Care Team Providers Care Experimental Welder Name Role Phone Unavailable Primary Care Provider [...] - 2023-2 5 season) 2024 Influenza Vaccine (#1) 2025 HIB Vaccines Aged Out No longer eligi ble based on patient's age to complete this topic HPV Vaccines (No Doses Required) Completed Hepatitis A Vaccines Aged Out No long [...]
--- OUTSIDE RECORDS SUMMARY | 2025-03-14 18:41 | XMS_ITS | Encounter Summary ---
Author Organization [facility] Address [address] [place] [address] Phone Care Team Providers Care Furnace Clerk Name Role Phone Unavailable Primary Care Provider Unavailabl e Encounter Details Date Type Department Care Team (Late st Contact Info) Description 03/26/2023 Orders Only [facility] [address] [place] [address] Conversion, Onbase Social History Tobacco Use Types [...]
--- OUTSIDE RECORDS SUMMARY | 2025-03-14 18:41 | XMS_ITS | Encounter Summary ---
Author Organization [facility] Address [address] [place] [address] Care Team Providers Care Warehouse Handler Name Role Phone Unallocated, Noms Edin BAKER Primary Care Provi christine Judi Tapia MD Unavailable [phone] Nikki Ayoub Unavailable Encounter Details Date Type Department Care Team (Late st Contact Info) Description 03/26/[address] [facility] [address] [facility] [address] [place] [phone] Rafa Rangel DO [address] [facility] [address] [place] [address] Social History Tobacco Use Types [...] on filedocumented in this encounter Care Teams Warehouse Handler Relationship Specialty Start Date End Date Unallocated, Noms MD Edin [address] [place] [address] PCP - General 04/25/23 Judi Tapia MD [address] [place] [address] Referring Physician Family Medicine 04/25/23 Nikki Ayoub PA [address] [place], [place] [id number] Physician Telemetry Rn Neurology 11/26/24 documented as of this encounter
--- OUTSIDE RECORDS SUMMARY | 2025-03-14 18:41 | XMS_ITS | Clinical Summary ---
Author Organization [facility] Address [address] [place] [address] Care Team Providers Care Assistant Teacher Primary Name Role Phone Judi Tapia QA ARCHITECT - MARKET DEVELOPMENT DIRECTOR Primary Care Provide r Allergies Active Allergy Reactions Criticality Noted Date Comments Cyclobenzaprine Other (See Comments),Swelling High 04/28/2018 Other Reaction(s): Other, Swelling of Lip/Tongue/Throat, throat swelling Penicillamine Rash Low 05/01/2024 Penicillins Other (See Comments),Rash,Swelling High 04/28/2018 Medications acarbose (PRECOSE) 25 MG tablet Take 1 tablet by mouth 2 times daily 4 Active vitamin D (VITAMIN D3) 50 MCG (1999) CAPS capsule Take 1 capsule by mouth daily 4 Active dicyclomine (BENTYL) 20 MG tablet Take 1 tablet by mouth Active lisinopril (PRINIVIL;ZESTR IL) 10 MG tablet Take 1 tablet by mouth every morning Active metoprolol succinate (TOPROL XL) 50 MG extended release tablet Take 1 tablet by mouth daily Active pantoprazole (PROTONIX) 40 MG tablet Take 1 tablet by mouth daily 3 Active sertraline (ZOLOFT) 50 MG tablet Take 1 tablet by mouth daily Active hyoscyamine (ANASPAZ;LEVSIN ) 0.125 MG tablet Take 1 tablet by mouth every 4 hours as needed for Cramping Active promethazine (PHENERGAN) 25 MG tablet Take 1 tablet by mouth every 6 hours as needed for Nausea Active polyethylene glycol (MIRALAX) 17 GM/SCOOP powder Take per bowel prep instructions 238 g 5 Active bisacodyl 5 MG EC tablet Take as directed for bowel prep/colonoscopy 4 tablet Active dicyclomine (BENTYL) 10 MG capsule Take 1 capsule by mouth 4 times daily as needed (pain lower abdomen) 45 capsule 2 Active Active Problems Problem Noted Date Diagnosed Date Gastroesophageal reflux disease 03/14/2025 Dysphagia, unspecified 02/26/2025 Screening for colon cancer 02/26/2025 Generalized abdominal pain 08/30/2024 Primary hypertension 08/29/2024 Gastroesophageal reflux dise ase with esophagitis without hemorrhage 08/29/2024 Major depressive disorder 08/29/2024 Hypokalemia 08/29/2024 Ileus 08/28/2024 Other dysphagia 08/15/2024 Encounters Date Type Department Care Team Description 03/14/2025 Prep for Procedure [facility] [address] [place] [phone] Jose Miguel Lucero MD 02/26/2025 1:30 PM EDT Office Visit [facility] [address] [place] [phone] Jose Miguel Lucero MD Dysphagia, unspecified type (Primary Dx); Generalized abdominal pain; Screen for colon cancer 02/26/2025 Telephone [facility] [address] [place] [phone] Jose Miguel Lucero MD Procedure (EGD/colon) 02/26/2025 Prep for Procedure [facility] [address] [place] [phone] Jose Miguel Lucero MD Screening for colon cancer 02/11/2025 Telephone [facility] [address] [place] [phone] Jose Miguel Lucero MD Appointment Requested from Last 3 Months Social History Tobacco Use Types Packs/Day Years Used Date Smoking Tobacco: Former Cigarettes Smokeless Tobacco: Never Tobacco Cessation:Counseling Given: Not Answered Alcohol Use Standard Drinks/Week Comments Yes 0 (1 standard drink = 0.6 oz pur e alcohol) Rare [facility] Utilities Answer Date Recorded In the [...] money to buy more. Never true 08/28/20 24 Within the past 12 months, t he [...] any time in the past 12 [facility], were you homeless or living in a fpc (including now)? No 08/28/2024 Food Insecurity Answer [...] Sign Reading Time Taken Comments Blood Pressure 128/89 02/26/2025 1:20 PM EDT Pulse 52 02/26/2025 1:20 PM EDT Temperature 36.9 C (98.4 F) 02/26/2025 1:20 PM EDT Respiratory Rate 16 02/26/2025 1:20 PM EDT Oxygen Saturation 98% 02/26/2025 1:20 PM EDT Inhaled Oxygen Concentration - - Weight 85.6 kg (188 lb 12.8 oz) 02/26/2025 1:20 PM EDT Height 170.2 cm (5' 7.01 ) 02/26/2025 1:20 PM ED T Body Mass Index 29.56 02/26/2025 1:20 PM EDT Plan of Treatment Upcoming Encounters Date Type Department Care Team (Latest Contact Info) Description 03/18/2025 8:45 AM EDT Appointment [facility] Pre-Admit Testing [address] [place] [address] OR 04/01 & 04/1904/01/2025 11:45 AM EDT Hospital Encounter [facility] [address] [place] [address] Jose Miguel Lucero MD [address] [address] 04/01/2025 11:45 AM EDT - 04/01/2025 12:00 PM EDT Surgery [facility] [address] [place] [address] Jose Miguel Lucero MD [address] [address] ESOPHAGOGASTRODUODENOSCOPY BIOPSY 04/19/2025 12:30 PM EDT Hospital Encounter [facility] [address] [place] [address] Jose Miguel Lucero MD [address] [facility] [address] [place] [address] 04/19/2025 12:30 PM EDT - 04/19/2025 1:00 PM EDT Surgery [facility] [address] [place] [address] Jose Miguel Lucero MD [address] [facility] [address] [place] [address] COLORECTAL CANCER SCREENING, NOT HIGH RISK Scheduled Procedures Name Priority Associated Diagnoses Date/Ti me ESOPHAGOGASTRODUODENOSCOPY BIOPSY Gastroesophageal reflux disease, unspecified whether esophagitis present 04/01/2025 11:45 AM EDT COLORECTAL CANCER SCREENING, NOT HIGH RISK Dysphagia, unspecified Screening for colon cancer 04/19/2025 12:30 PM EDT Health Maintenance Due Date Last Done Comments [...] of 1 - PCV) 2020 COVID-19 Vaccine (2023- season) 2024 06/15/2022, 03/18/2022, 11/06/2021, Additional history exists Flu vaccine (#1) 04/05/2025 06/09/2022 Shingles vaccine Completed 02/19/2025, 04/27/2024 Hepatitis A vaccine Aged Out No longe [...] patient's age to complete this topic Insurance [place] Advance Directives * Full Code (Latest Code Status on File) Date Activated Date Inactivated Comments 08/28/2024 3:16 PM 08/30/2024 6:26 PM Care Teams Assistant Teacher Primary Relationship Specialty Start Date End Date Judi Tapia, QA ARCHITECT - MARKET DEVELOPMENT DIRECTOR [address] [place] [address] PCP - General 08/29/24
--- OUTSIDE RECORDS SUMMARY | 2025-03-14 18:42 | XMS_ITS | Clinical Summary ---
Author Organization [facility] Address [address] [place] [address] Care Team Providers Care Eeo Officer Name Role Phone Judi Tapia REJI Primary Care Provider [phone] Allergies Active Allergy Reactions Criticality Noted Date Comments Cyclobenzaprine Other,Swelling High 04/28/2018 Penicillins Other,Rash,Swelling High 04/28/2018 Medications sertraline (Zoloft) 50 mg tablet Take 50 mg by mouth in the morning. 4 Active lisinopril 10 mg tabletIndication s:Essential hypertension Take 1 tablet (10 mg) by mouth in the morning. 30 tablet 11 4 03/19/20 25 Active Additional Information Patient taking differently: 40 mgoral Daily, Reported on 02/28/2025 pantoprazole (ProtoNix) 40 mg EC tablet Take 40 mg by mouth before breakfast. 4 Active acarbose (Precose) 25 mg tablet Take 1 tablet by mouth in the morning and at bedtime. 4 Active metoprolol succinate XL (Toprol-XL) 50 mg 24 hr tabletIndication s:Essential hypertension TAKE 1 TABLET (50 MG) BY MOUTH IN THE MORNING DO NOT CRUSH OR CHEW 90 tablet 3 5 12/04/19 26 Active levETIRAcetam (Keppra) 750 mg tablet Take 750 mg by mouth. Active aspirin 81 mg EC tablet Take 81 mg by mouth in the morning. 5 Active metoclopramide (Reglan) 5 mg tablet TAKE 1 TABLET BY MOUTH BEFORE MEALS AND AT BEDTIME 5 Active Active Problems Problem Noted Date Diagnosed Date Contusion of left knee 02/28/2025 Pure hypercholesterolemia 02/28/2025 Screening for colon cancer 02/26/2025 Other chest pain 12/30/2024 Abdominal adhesions 09/14/2024 [...] infection) 02/15/2024 Palpitations 02/15/2024 Sinus tachycardia 02/15/2024 AC (dyspnea on exertion) 02/15/2024 Obstructive sleep apnea 02/15/2024 Former smoker 02/15/2024 Resolved Problems Problem Noted Date Diagnosed Date Resolved Date Morbid obesity 04/28/2018 05/14/2024 Encounters Date Type Department Care Team Description 02/28/2025 9:40 AM EDT Office Visit [facility] [address] [place] [address] Elio Heart MD Other chest pain (Primary Dx); CA (dyspnea on exertion); Palpitations; Sinus tachycardia; Essential hypertension; Pure hypercholesterolemia; Obstructive sleep apnea; Overweight (BMI 25.0-29.9); Former smoker 02/04/2025 Telephone [facility] [address] [place] [address] Rso Meza MA 01/11/2025 Orders Only [facility] [address] [place] [phone] Elio Heart MD Other chest pain (Primary Dx) 12/28/2024 1:20 PM EDT Office Visit [facility] [address] [place] [address] Elio Heart MD Other chest pain (Primary Dx); Palpitations; Sinus tachycardia; CA (dyspnea on exertion); Essential hypertension; Overweight (BMI 25.0-29.9); Former smoker 12/20/2024 Telephone [facility] [address] [place] [address] Christina Plummer MA from Last 3 Months Family History Medical [...] Pulse 57 02/28/2025 9:40 AM EDT Temperature 36.4 C (97.6 F) 05/22/2019 1:22 PM EDT Respiratory Rate - - Oxygen Saturation 96% 02/28/2025 9:40 AM EDT Inhaled Oxygen Concentration - - Weight 85.7 kg (189 lb) 02/28/2025 9:40 AM EDT Height 170.2 cm (5' 7 ) 02/28/2025 9:40 AM EDT Body Mass Index 29.6 02/28/2025 9:40 AM EDT Plan of Treatment Health Maintenance Due [...] 03/18/2022, 11/06/2021, Additional history exists Influenza Vaccine (#1) 2025 06/09/2022 Colonoscopy 03/13/2030 03/13/2020, 05/17/2019 Colorectal Cancer Screening 03/13/2030 Zoster Vaccines Completed 02/19/2025, 04/27/2024 HIB Vaccines Aged Out No longer eligi [...] No: Do not add to previous draw us Sesar Adair MD LAB BODY FLUIDS AND STOOLS ORDER [place] Final Result LAB CONVERSIONS from Last 3 Months or Most Recently Relevant to Health Maintenance Insurance [facility] Care Teams Eeo Officer Relationship Specialty Start Date End Date Judi Tapia CNP [facility] [place] [address] PCP - General Family Medicine 02/14/24
--- OUTSIDE RECORDS SUMMARY | 2025-03-14 18:42 | XMS_ITS | Patient Health Record ---
Author Organization [facility] [place] Address [address] [place] [address] Care Team Providers Care Business Intelligence Architect Name Role Phone Judi Youssef Primary Care Provider [phone] Isaac Izaguirre Kye [phone] Allergies Allergen (clinical drug ingredient) Drug/Non Drug Allergy documented on EMR Reaction Allergy Type Onset Date Status Flexeril (uncoded) anaphylaxis Allergy Active Penicillin (uncoded) arm swelling Allergy Active Results Component Value Reference Range Notes MAGNESIUM Reviewed date:09/07/2024 11:32:59 AM Interpretation: Performing Lab: Notes/Report: [facility] , Magnesium 2.1 1.8-2.4 mg/dL Performing Lab: see note ML - [facility] LB UA (Urinalysis, Dipstix only - w/o micro) [...] ESTERASE (PETER) + NEG - NEG MG/DL PROF CHEM 8 (BAS METB) Reviewed date:04/06/2024 11:34:29 AM Interpretation: Performing Lab: Notes/Report: [facility] , Sodium 142 136-145 mmol/L Potassium 3.8 3.5-5.1 mmol/L Chloride 106 98-107 mmol/L Carbon Dioxide 29.1 21.0-32.0 mmol/L Anion Gap 10.7 Glucose 93 74-106 mg/dL Blood Urea Nitrogen 18.0 7.0-18.0 mg/dL Creatinine 0.82 0.55-1.02 mg/dL Estimated GFR ( Milagro >60 >=60 Estimated GFR (Non- Skylar >60 >=60 BUN Creatinine Ratio 22.0 Calcium 9.2 8.5-10.1 mg/dL Performing Lab: see note ML - [facility] MR knee LT wo con Reviewed date:07/10/2024 08:58:52 AM Interpretation: Performing Lab: Notes/Report: Source Facility: [place] [address] Magnetic Resonance Report Signed Patient: CONSTANTINO MENDIOLA MR#: [id number] : 1970 Acct:[id number] Age/Sex: 54 / F ADM Date: 07/09/24 Loc: MRI Attending Dr: Nichole HAQ Ordering Physician: Nichole Harden Date of Service: 07/09/24 Procedure(s): MR knee LT wo con Accession Number(s): [id number] cc: JUDI YOUSSEF ; Nichole Harden [place] [address] Patient Name: CONSTANTINO MENDIOLA MRN: [id number] date: 1970 Sex: F Assigned Patient Location: MRI Current Patient Location: MRI Accession/Order Number: [id number] Exam Date: 07/09/2024 08:50 Report Date: 07/09/2024 [...] M.D. Signed By: 07/09/241652 DD/ 49 TD/TT: Mechanical Lead: [place] [address] Magnetic Resonance Report Signed Patient: ARIELLE MENDIOLA MR#: [id number] : 1970 Acct:[id number] Age/Sex: 54 / F ADM Date: 07/09/24 Loc: MRI Attending Dr: Blake Lerner Ordering Physician: Nichole Harden Date of Service: 07/09/24 Procedure(s): MR kne e LT wo con Accession Number(s): [id number] cc: JUDI YOUSSEF ; Nichole Harden [place] [address] Patient Name: CONSTANTINO MENDIOLA MRN: [id number] date: 1970 Sex: F Assigned Patient Location: MRI Current Patient Loca tion: MRI Accession/Order Numb er: [id number] Exam Date: 08:50 Report Date: 07/09/2024 16:50 [...] M.D. Signed By: 07/09/241652 DD/ 49 TD/TT: Mechanical Lead: MAGNESIUM Reviewed date:09/03/2024 08:18:59 AM Interpretation: Performing Lab: Notes/Report: [facility] , Magnesium 1.9 1.8-2.4 mg/dL Performing Lab: see note ML - [facility] LB PROF CHEM 8 (BAS METB) Reviewed date:09/03/2024 08:18:59 AM Interpretation: Performing Lab: Notes/Report: [facility] , Sodium 141 136-145 mmol/L Potassium 4.4 3.5-5.1 mmol/L Chloride 104 98-107 mmol/L Carbon Dioxide 26.9 21.0-32.0 mmol/L Anion Gap 14.5 Glucose 108 74-106 mg/dL Blood Urea Nitrogen 15.0 7.0-18.0 mg/dL Creatinine 0.95 0.55-1.02 mg/dL Estimated GFR ( Milagro >60 >=60 mL/min/1.73m 2 Estimated GFR (Non- Skylar >60 >=60 mL/min/1.73m 2 BUN Creatinine Ratio 15.8 Calcium 9.4 8.5-10.1 mg/dL Performing Lab: see note - [facility] PROF 14(COMP METB) Reviewed date:09/07/2024 11:32:59 AM Interpretation: Performing Lab: Notes/Report: [facility] , Sodium 143 136-145 mmol/L Potassium 3.6 [...] Globulin Ratio 1.0 Performing Lab: see note - [facility] US renal BI Reviewed date:09/17/2024 10:44:15 AM Interpretation: Performing Lab: Notes/Report: Source Facility: [facility] [place] [address] [place] [address] Ultrasound Report Signed Patient: CONSTANTINO MENDIOLA MR#: [id number] : 1970 Acct:[id number] Age/Sex: 54 / F ADM Date: 09/14/24 Loc: US Attending Dr: JUDI YOUSSEF Ordering Physician: JUDI YOUSSEF Date of Service: 09/14/24 Procedure(s): US renal BI Accession Number(s): [id number] cc: JUDI YOUSSEF [place] [id number] Patient Name: CONSTANTINO MENDIOLA MRN: [id number] date: 1970 Sex: F Assigned Patient Location: US Current Patient Location: US Accession/Order Number: [id number] Exam Date: 09/14/2024 08:40 Report Date: 09/14/2024 [...] M.D. Signed By: 09/14/24923 DD/ 0 TD/TT: Mechanical Lead: [place] [address] Ultrasound Report Signed Patient: ARIELLE MENDIOLA MR#: [id number] : 1970 Acct:[id number] Age/Sex: 54 / F ADM Date: 09/14/24 Loc: US Attending Dr: JUDI YOUSSEF Ordering Physician: JUDI YOUSSEF Date of Service: 09/14/24 Procedure(s): US renal BI Accession Number(s): [id number] cc: JUDI YOUSSEF The [place] [id number] Patient Name: CONSTANTINO MENDIOLA MRN: [id number] date: 1970 Sex: F Assigned Patient Location: US Current Patient Loca tion: US Accession/Order Numb er: [id number] Exam Date: 09/14/2024 08:40 Report Date: 09/14/2024 [...] M.D. Signed By: 09/14/24923 DD/ 0 TD/TT: Mechanical Lead: CBC AUTO DIFF Reviewed date:10/01/2024 12:35:56 PM Interpretation: Performing Lab: Notes/Report: [facility] , White Blood Count 9.4 4.0-11.0 10 [...] 3/uL Performing Lab: see note ML - [facility] LB CPK Reviewed date:10/01/2024 12:35:56 PM Interpretation: Performing Lab: Notes/Report: [facility] , Creatine Kinase 36 26-192 U/L Performing Lab: see note - [facility] LB LACTATE or LACTIC ACID Reviewed date:10/01/2024 12:35:56 PM Interpretation: Performing Lab: Notes/Report: [facility] , Lactate/Lactic Acid 2.4 0.4-2.0 mmol/L RESULT S CALLED TO EUN LEIGH Performing Lab: see note - [facility] LB PROF 14(COMP METB) Reviewed date:10/01/2024 12:35:56 PM Interpretation: Performing Lab: Notes/Report: [facility] , Sodium 139 136-145 mmol/L Potassium 3.4 [...] Globulin Ratio 0.9 Performing Lab: see note - [facility] Troponin I High Sensitivity Reviewed date:10/01/2024 12:35:56 PM Interpretation: Performing Lab: Notes/Report: [facility] , Troponin I High Sensitivity 29.6 4.0-51.3 pg/mL CUT-OFF POINTS HAVE BEEN ESTABLISHED BASED ON THE FOURTH UNIVERSAL DEFINITION OF MYOCARDIAL INFARCTION. THE UPPER REFERENCE LIMIT (URL) OF TROPONIN, DEFINED THE 99TH PERCENTILE OF cTnI DISTRIBUTION IN A REFERENCE POPULATION, HAS BEEN CONFIRMED THE DECISION THRESHOLD FOR PA DIAGNOSIS. 99TH PERCENTILE = 51.4 PG/ML NOTE: HIGH-SENSITIVITY TROPONIN ASSAY IS NOT INTENDED TO BE USED IN ISOLATION BUT SHOULD BE INTERPRETED IN CONJUNCTION WITH OTHER DIAGNOSTIC AND CLINICAL INFORMATION. Performing Lab: see note - [facility] LB ECG 12 lead Reviewed date:10/01/2024 12:35:56 PM Interpretation: Performing Lab: Notes/Report: Source Facility: [place] [address] Electrocardiograph Report Signed Patient: CONSTANTINO MENDIOLA MR#: [id number] : 1970 Acct:[id number] Age/Sex: 54 / F ADM Date: 09/28/24 Loc: ER Attending Dr: Ordering Physician: Neo Wilson Date of Service: 09/28/24 Procedure(s): ECG 12 lead Accession Number(s): [id number] cc: [facility] Test Date: 2024-09-28 Pat Name: CONSTANTINO MENDIOLA Department: Room: - Gender: Female Composite Engineer: : 1970 Requested By: 0929 Order Number: [id number] Reading MD: LEO IZAGUIRRE Measurements Intervals [place] Rate: 49 P: 37 MS: 134 QRS: 19 QRSD: 98 T: 71 QT: 488 QTc: 457 Interpretive Statements 1130 Sinus bradycardia 9150 abnormal ECG Compared to ECG 08/28/2024 04:11:23 Left ventricular hypertrophy now present Early repolarization now present Sinus rhythm no longer present Electronically Signed On 10-01-2024 9:22:22 EST by LEO IZAGUIRRE Dictated By: Leo Izaguirre M.D. Signed By: 10/01/24921 DD/ 152 TD/TT: Mechanical Lead: [place] [address] Electrocardiograph Report Signed Patient: ARIELLE MENDIOLA MR#: [id number] : 1970 Acct:[id number] Age/Sex: 54 / F ADM Date: 09/28/24 Loc: ER Attending Dr: Ordering Physician: Neo Wilson Date of Service: 09/28/24 Procedure(s): ECG 12 lead Accession Number(s): [id number] cc: The [facility] Test Date: 2024-09-28 Pat Name: CONSTANTINO MENDIOLA Department: 66 Room: - Gender: Female Composite Engineer: : 1970 Requ ested By: 0929 Order Number: [id number] Reading MD: LEO IZAGUIRRE Measurements Intervals [place] Rate: 49 P: 37 MS: 134 QRS: 19 QRSD: 98 T: 71 QT: 488 QTc: 457 Interpretive Statements 1130 Sinus bradycardia 9150 abnormal ECG Compared to ECG 08/28/2024 04:11:23 Left ventricular hypertrophy now present Early repolarization now present Sinus rhythm no long er present Electronically Priya d On 10-01-2024 9:22:22 EST by LEO IZAGUIRRE Dictated By: Yamile Izaguirre M.D. Signed By: 10/01/24921 DD/ 1525 TD/TT: Mechanical Lead: XR chest 1V Reviewed date:10/01/2024 12:35:56 PM Interpretation: Performing Lab: Notes/Report: Source Facility: [place] [address] [place] [address] XRay Report Signed Patient: CONSTANTINO MENDIOLA MR#: [id number] : 1970 Acct:[id number] Age/Sex: 54 / F ADM Date: 09/28/24 Loc: ER Attending Dr: Ordering Physician: Neo Wilson Date of Service: 09/28/24 Procedure(s): XR chest 1V Accession Number(s): [id number] cc: JUDI YOUSSEF ; Neo Wilson [place] [address] Patient Name: CONSTANTINO MENDIOLA MRN: [id number] date: 1970 Sex: F Assigned Patient Location: ER Current Patient Location: ER Accession/Order Number: [id number] Exam Date: 09/28/2024 15:24 Report Date: 09/28/2024 15:48 At the request of: NEO WILSON Procedure: XR chest 1V EXAM: XR chest 1V TECHNIQUE: Single AP view chest HISTORY: Shortness of breath COMPARISON: 08/28/2024 FINDINGS: The heart and mediastinum are unremarkable. The lung owlff are clear of any acute infiltrate, effusion or mass. No acute bony abnormality. XR/XR chest 1V IMPRESSION: No acute pulmonary disease. Electronically authenticated by: MARCELO BINGHAM Date: 09/28/2024 15:48 Dictated By: Marcelo Bingham M.D. Signed By: 09/28/24 1550 DD/ 1548 TD/TT: Mechanical Lead: [place] [address] XRay Report Signed Patient: ARIELLE MENDIOLA MR#: [id number] : 1970 Acct:[id number] Age/Sex: 54 / F ADM Date: 09/28/24 Loc: ER Attending Dr: Ordering Physician: Neo Wilson Date of Service: 09/28/24 Procedure(s): XR chest 1V Accession Number(s): [id number] cc: JUDI YOUSSEF ; Neo Wilson The [place] [id number] Patient Name: CONSTANTINO MENDIOLA MRN: [id number] date: 1970 Sex: F Assigned Patient Location: ER Current Patient Loca tion: ER Accession/Order Numb er: [id number] Exam Date: 09/28/2024 15:24 Report Date: 09/28/2024 [...] Signed By: 09/28/24 1550 DD/ 1548 TD/TT: Mechanical Lead: DRUG SCREEN RAPID (URINE) Reviewed date:12/18/2024 02:35:37 PM Interpretation: Performing Lab: Notes/Report: [facility] , Cannabinoid Screen Urine NEGATIVE NEGATIVE Phencyclidine [...] Antidepressants): 300 ng/mL Performing Lab: see note ML - [facility] LB LIPASE Reviewed date:12/18/2024 02:35:37 PM Interpretation: Performing Lab: Notes/Report: [facility] , Lipase 26.0 16.0-77.0 U/L Performing Lab: see note ML - [facility] LB LIVER PROFILE Reviewed date:12/18/2024 02:35:37 PM Interpretation: Performing Lab: Notes/Report: [facility] , Bilirubin Total 0.4 0.2-1.0 mg/dL Bilirubin Direct 0.1 0.0-0.2 mg/dL Aspartate Amino Transferase 16 15-37 U/L Alanine Aminotransferase 17 14-59 U/L Alkaline Phosphatase 145 46-116 U/L Total Protein 6.6 6.4-8.2 g/dL Albumin Level 3.4 3.4-5.0 g/dL Globulin 3.2 Albumin Globulin Ratio 1.1 Performing Lab: see note ML - [facility] LB PROF CHEM 8 (BAS METB) Reviewed date:12/18/2024 02:35:37 PM Interpretation: Performing Lab: Notes/Report: [facility] , Sodium 140 136-145 mmol/L Potassium 3.7 3.5-5.1 mmol/L Chloride 107 98-107 mmol/L Carbon Dioxide 28.2 21.0-32.0 mmol/L Anion Gap 8.5 Glucose 104 74-106 mg/dL Blood Urea Nitrogen 14.0 7.0-18.0 mg/dL Creatinine 0.76 0.55-1.02 mg/dL Estimated GFR ( Milagro >60 >=60 mL/min/1.73m 2 Estimated GFR (Non- Skylar >60 >=60 mL/min/1.73m 2 BUN Creatinine Ratio 18.4 Calcium 9.0 8.5-10.1 mg/dL Performing Lab: see note [facility] LB RHEUMATOID FACTOR Reviewed date:12/20/2024 11:55:33 AM Interpretation: Performing Lab: Notes/Report: [facility] , Rheumatoid Factor (RF) <10.0 <14.0 IU/mL Performed at: [address] [id number] Principal Architect: Shawn Louis PhD, Phone: [phone] Performing Lab: see note [facility] LB UA (CLEAN or CATCH) CLIENT PROGRAM MANAGER or M ICRO IF IND. Reviewed date:12/18/2024 02:35:37 PM Interpretation: Performing Lab: Notes/Report: [facility] , Color Urine LT. YELLOW YELLOW Clarity Urine CLEAR CLEAR Specific Gifford Urine 1.020 1.005-1.025 pH Urine 6.0 5.0-9.0 Protein Urine NEGATIVE NEG/TRACE mg/dL Glucose Urine UA NEGATIVE NEGATIVE mg/dL Bilirubin Urine NEGATIVE NEGATIVE Ketones Urine NEGATIVE NEGATIVE mg/dL Blood Urine TRACE-I NEGATIVE Nitrite Urine NEGATIVE NEGATIVE Urobilinogen Urine 0.2 0.2-1.0 EU/dL Leukocyte Esterase Urine MODERATE NEGATIVE Urine Microscopic Indicated YES Performing Lab: see note [facility] PEPPER w/Reflex Reviewed date:12/20/2024 11:55:33 AM Interpretation: Performing Lab: Notes/Report: [facility] , PEPPER Direct Negative Negative Performed at: [address] [id number] Principal Architect: Shawn Louis PhD, Phone: [phone] Performing Lab: see note [facility] CBC AUTO DIFF Reviewed date:01/10/2025 11:54:39 AM Interpretation: Performing Lab: Notes/Report: [facility] , White Blood Count 5.5 4.0-11.0 10 [...] Performing Lab: see note ML - [facility] LB PROF 14(COMP METB) Reviewed date:01/10/2025 11:54:39 AM Interpretation: Performing Lab: Notes/Report: [facility] , Sodium 143 136-145 mmol/L Potassium 3.8 [...] Performing Lab: see note ML - [facility] LB Levetiracetam (Keppra), S Reviewed date:01/11/2025 12:15:06 PM Interpretation: Performing Lab: Notes/Report: [facility] , Levetiracetam (Keppra), S 25.1 10.0-40.0 ug/mL Performed at: - [facility] [address] [id number] Principal Architect: Suresh Carranza MD, Phone: [phone] Performing Lab: see note LC - [facility] LB CT abdomen pelvis wo con Reviewed date:12/18/2024 02:35:38 PM Interpretation: Performing Lab: Notes/Report: Source Facility: [place] [address] CT Scan Report Signed Patient: CONSTANTINO MENDIOLA MR#: [id number] : 1970 Acct:[id number] Age/Sex: 54 / F ADM Date: 12/18/24 Loc: ER Attending Dr: Ordering Physician: Raymundo Pisano M.D. Date of Service: 12/18/24 Procedure(s): CT abdomen pelvis wo con Accession Number(s): [id number] cc: JUDI YOUSSEF [place] [address] Patient Name: CONSTANTINO MENDIOLA MRN: [id number] date: 1970 Sex: F Assigned Patient Location: ER Current Patient Location: ER Accession/Order Number: [id number] Exam Date: 12/18/2024 10:04 Report Date: 12/18/2024 [...] Columba Domínguez M.D.12/18/2024 10:25 AM Dictation Location: [place] [address] Electronically authenticated by: [id number] Y Date: 12/18/2024 10:25 Dictated By: Columba Domínguez M.D. Signed By: 12/18/24 1027 DD/ 1025 TD/TT: Mechanical Lead: [place] [address] CT Scan Report Signed Patient: ARIELLE MENDIOLA MR#: [id number] : 1970 Acct:[id number] Age/Sex: 54 / F ADM Date: 12/18/24 Loc: ER Attending Dr: Ordering Physician: Raymundo Pisano M.D. Date of Service: 12/18/24 Procedure(s): CT abd omen pelvis wo con Accession Number(s): [id number] cc: JUDI YOUSSEF [place] [address] Patient Name: CONSTANTINO MENDIOLA MRN: [id number] date: 1970 Sex: F Assigned Patient Location: ER Current Patient Loca tion: ER Accession/Order Numb er: [id number] Exam Date: 12/18/2024 10:04 Report Date: 12/18/2024 [...] Columba Domínguez M.D.12/18/2024 10:25 AM Dictation Location: [place] [address] Electronically authenticated by: [id number] Y Date: 12/18/2024 10:25 Dictated By: Columba Domínguez M.D. Signed By: 12/18/24 1027 DD/ 1025 TD/TT: Mechanical Lead: CT chest wo con Reviewed date:12/18/2024 02:35:38 PM Interpretation: Performing Lab: Notes/Report: Source Facility: [place] [address] CT Scan Report Signed Patient: CONSTANTINO MENDIOLA MR#: [id number] : 1970 Acct:[id number] Age/Sex: 54 / F ADM Date: 12/18/24 Loc: ER Attending Dr: Ordering Physician: Raymundo Pisano M.D. Date of Service: 12/18/24 Procedure(s): CT chest wo con Accession Number(s): [id number] cc: JUDI YOUSSEF [place] [address] Patient Name: CONSTANTINO MENDIOLA MRN: [id number] date: 1970 Sex: F Assigned Patient Location: ER Current Patient Location: ER Accession/Order Number: [id number] Exam Date: 12/18/2024 10:04 Report Date: 12/18/2024 10:25 At the request of: RAYMUNDO PISANO MD Procedure: CT abdomen pelvis wo con CT CHEST, ABDOMEN AND PELVIS WITHOUT CONTRAST COMPARISON: Chest 12/28/2019 and abdomen/pelvis 2020 12/24/2023 CLINICAL DATA: Acute onset of difficulty swallowing. [...] Columba Domínguez M.D.12/18/2024 10:25 AM Dictation Location: [place] [address] Electronically authenticated by: [id number] Y Date: 12/18/2024 10:25 Dictated By: Columba Domínguez M.D. Signed By: 12/18/24 1028 DD/ 1025 TD/TT: Mechanical Lead: [place] [address] CT Scan Report Signed Patient: ARIELLE MENDIOLA MR#: [id number] : 1970 Acct:[id number] Age/Sex: 54 / F ADM Date: 12/18/24 Loc: ER Attending Dr: Ordering Physician: Raymundo iPsano M.D. Date of Service: 12/18/24 Procedure(s): CT zenaida st wo con Accession Number(s): [id number] cc: JUDI YOUSSEF [address] [address] Patient Name: CONSTANTINO MENDIOLA MRN: [id number] date: 1970 Sex: F Assigned Patient Location: ER Current Patient Loca tion: ER Accession/Order Numb er: [id number] Exam Date: 12/18/2024 10:04 Report Date: 12/18/2024 [...] Columba Domínguez M.D.12/18/2024 10:25 AM Dictation Location: [place] [address] Electronically authenticated by: [id number] Y Date: 12/18/2024 10:25 Dictated By: Columba Domínguez M.D. Signed By: 12/18/24 1028 DD/ 1025 TD/TT: Mechanical Lead: Urine Culture - [facility] Reviewed date:12/21/2024 08:36:06 AM Interpretation: Performing Lab: Notes/Report: [facility] , Urine Culture - [facility] See Below For Report Urine Culture - [facility] Testing performed at [facility] O:STRAGA Isolated Urine Culture - [facility] Organism Comments Urine Culture - [facility] [address], [place] [address] Urine Culture - [facility] Testing performed at [facility] O:STRAGA Isolated Urine Culture - [facility] Organism Comments Urine Culture - [facility] See Below For Report Urine Culture - [facility] Testing performed at [facility] O:STRAGA Isolated Urine Culture - [facility] Organism Comments Urine Culture - [facility] See Below For Report Urine Culture - [facility] Testing performed at [facility] O:STRAGA Isolated Urine Culture - [facility] Organism Comments Urine Culture - [facility] 15,000 CFU/ML Urine Culture - [facility] Testing performed at [facility] O:STRAGA Isolated Urine Culture - [facility] Organism Comments Urine Culture - [facility] Urine Culture - [facility] Testing performed at [facility] O:STRAGA Isolated Urine Culture - [facility] Organism Comments Urine Culture - [facility] * This is a correct ed result. * Urine Culture - [facility] Testing performed at [facility] O:STRAGA Isolated Urine Culture - [facility] Organism Comments Urine Culture - [facility] Urine Culture - [facility] Testing performed at [facility] O:STRAGA Isolated Urine Culture - [facility] Organism Comments Urine Culture - [facility] A prior result that was reported as final has been changed. Urine Culture - [facility] Testing performed at [facility] O:STRAGA Isolated Urine Culture - [facility] Organism Comments Performing Lab: see note ML - [facility] LB SEE REPORT - Power Supply Engineer Id information not found for OBX-specific editor producer legend URINE MICROSCOPIC ONLY Reviewed date:12/18/2024 02:35:38 PM Interpretation: Performing Lab: Notes/Report: [facility] , WBC Urine 5-10 NONE SEEN #/HPF RBC Urine 2-5 0-2 #/HPF Bacteria Urine TRACE NONE SEEN #/HPF Mucus Urine TRACE NONE SEEN Squamous Epithelial Cell Urine FEW NONE/RARE #/LPF Crystals Seen? None Seen None Seen #/HPF Cast Seen? NONE SEEN NONE SEEN #/LPF Urine Culture Indicated YES[place] Performing Lab: see note ML - [facility] LB CBC AUTO DIFF Reviewed date:12/18/2024 02:35:37 PM Interpretation: Performing Lab: Notes/Report: [facility] , White Blood Count 5.7 4.0-11.0 10 [...] 10 3/uL Performing Lab: see note - [facility] LB Vitamin B12 Reviewed date:11/28/2024 11:53:15 AM Interpretation: Performing Lab: Notes/Report: [facility] , Vitamin B12 686 132-2568 pg/mL Performed at: [facility] [address] [id number] Principal Architect: Shawn Louis PhD, Phone: [phone] Performing Lab: see note - [facility] LB VITAMIN D 25 [place] Reviewed date:11/27/2024 03:16:31 PM Interpretation: Performing Lab: Notes/Report: [facility] , Vitamin D 40.2 <20 ng/mL Vit D deficient 20-<30 ng/mL Vit D insufficient 30-100 ng/mL Vit D sufficient >100 ng/mL Potential Toxicity Performing Lab: see note - [facility] LB UA Micro, reflex to culture Reviewed date:10/01/2024 12:35:56 PM Interpretation: Performing Lab: Notes/Report: [facility] , Color Urine YELLOW YELLOW Clarity Urine CLEAR CLEAR Specific G[place]ord Urine 1.025 1.005-1.025 pH Urine 6.0 5.0-9.0 [...] YES Performing Lab: see note ML - [facility] LB Urine Culture, Routine Reviewed date:10/02/2024 10:29:54 AM [...] RHONDA Status Urine Culture, Routine Performed at: [facility], Routine Organism: Escherichia coli. : O:ESCHCO Isolated Organism: 1.1 Antibiotic Interpretation RHONDA Status Urine Culture, Routine [address] [place], [place] [id number] Urine Culture, Routine Organism: Escherichia coli. : O:ESCHCO Isolated Organism: 1.1 Antibiotic Interpretation RHONDA Status Urine Culture, Routine Principal Architect: Devante Louis PhD, Phone: [phone] Urine Culture, Routine Organism: Escherichia coli. : [...] LC - [facility] LB SEE REPORT - Power Supply Engineer Id information not found for OBX-specific editor producer legend Troponin I High Sensitivity Reviewed date:08/28/2024 08:57:50 AM Interpretation: Performing Lab: Notes/Report: [facility] , Troponin I High Sensitivity 38.1 4.0-51.3 pg/mL CUT-OFF POINTS HAVE BEEN ESTABLISHED BASED ON THE FOURTH UNIVERSAL DEFINITION OF MYOCARDIAL INFARCTION. THE UPPER REFERENCE LIMIT (URL) OF TROPONIN, DEFINED THE 99TH PERCENTILE OF cTnI DISTRIBUTION IN A REFERENCE POPULATION, HAS BEEN CONFIRMED THE DECISION THRESHOLD FOR PA DIAGNOSIS. 99TH PERCENTILE = 51.4 PG/ML NOTE: HIGH-SENSITIVITY TROPONIN ASSAY IS NOT INTENDED TO BE USED IN ISOLATION BUT SHOULD BE INTERPRETED IN CONJUNCTION WITH OTHER DIAGNOSTIC AND CLINICAL INFORMATION. Performing Lab: see note ML - [facility] LB CT abdomen pelvis w con Reviewed date:08/28/2024 08:57:50 AM Interpretation: Performing Lab: Notes/Report: Source Facility: [place] [address] CT Scan Report Signed Patient: CONSTANTINO MENDIOLA MR#: [id number] : 1970 Acct:[id number] Age/Sex: 54 / F ADM Date: 08/28/24 Loc: ER Attending Dr: Ordering Physician: Zeferino Armas M.D. Date of Service: 08/28/24 Procedure(s): CT abdomen pelvis w con Accession Number(s): [id number] cc: JUDI YOUSSEF [place] [address] Patient Name: CONSTANTINO MENDIOLA MRN: [id number] date: 1970 Sex: F Assigned Patient Location: ER Current Patient Location: ER Accession/Order Number: [id number] Exam Date: 08/28/2024 05:55 Report Date: 08/28/2024 [...] transition point. No dilated small bowel loops. Uxhyp-yp-tjvvaacv hiatal hernia. Esophagogastric tube tip terminates in [...] tube tip terminates in the distal stomach. Imtgv-cp-xdydcytp hiatal hernia. 3. Intermediate density lesion in the right renal cortex may correlate with a hemorrhagic/proteinaceous cyst. This could be further characterized with CT or MRI renal protocol. 4. Biliary ductal dilatation likely related to postcholecystectomy state. Recommend clinical correlation. Electronically authenticated by: MARQUES ROSEN Date: 08/28/2024 07:52 Dictated By: Marques Rosen M.D. Signed By: 08/28/24 0755 DD/ 0752 TD/TT: Mechanical Lead: The [address] [address] [address] Scan Report Signed Patient: ARIELLE MENDIOLA MR#: [id number] : 1970 Acct:[id number] Age/Sex: 54 / F ADM Date: 08/28/24 Loc: ER Attending Dr: Ordering Physician: Zeferino Armas M.D. Date of Service: 08/28/24 Procedure(s): CT abd omen pelvis w con Accession Number(s): [id number] cc: JUDI YOUSSEF [facility] [address] [id number] Patient Name: CONSTANTINO MENDIOLA MRN: [facility]:[id number] date: 1970 Sex: F Assigned Patient Location: ER Current Patient Loca tion: ER Accession/Order Numb er: [id number] Exam Date: 05:55 Report Date: 08/28/2024 07:52 At the [...] transition point. No dilated small bowel loops. Dsthn-lk-mfmuxpxw hiatal hernia. Esophagogast bertha tube tip terminates [...] tube tip terminates in the distal stomach. Ztxda-ko-qvtxymch hiatal hernia. 3. Intermediate dens ity lesion in the right renal cortex may correlate with a hemorrhagic/proteina ceous cyst. This could be further characterized with CT or MRI renal protocol. 4. Biliary ductal dilatation likely related to postcholecystectomy state. Recommend clinical correlation. Electronically authenticated by: MARQUES ROSEN Date: 08/28/2024 07:52 Dictated By: Nisha Rosen M.D. Signed By: 08/28/24 075 DD/ 075 TD/TT: Mechanical Lead: XR acute abdomen series Reviewed date:08/28/2024 08:57:50 AM Interpretation: Performing Lab: Notes/Report: Source Facility: [place] [address] XRay Report Signed Patient: CONSTANTINO MENDIOLA MR#: [id number] : 1970 Acct:[id number] Age/Sex: 54 / F ADM Date: 08/28/24 Loc: ER Attending Dr: Ordering Physician: Zeferino Armas M.D. Date of Service: 08/28/24 Procedure(s): XR acute abdomen series Accession Number(s): [id number] cc: JUDI YOUSSEF ; Zeferino Armas M.D. [address] [place] [address] Patient Name: CONSTANTINO MENDIOLA MRN: [id number] date: 1970 Sex: F Assigned Patient Location: ER Current Patient Location: ER Accession/Order Number: [id number] Exam Date: 08/28/2024 05:00 Report Date: 08/28/2024 [...] D.O. Signed By: 08/28/2434 DD/ 1 TD/TT: Mechanical Lead: [place] [address] XRay Report Signed Patient: ARIELLE MENDIOLA MR#: [id number] : 1970 Acct:[id number] Age/Sex: 54 / F ADM Date: 08/28/24 Loc: ER Attending Dr: Ordering Physician: Zeferino Armas M.D. Date of Service: 08/28/24 Procedure(s): XR acu te abdomen series Accession Number(s): [id number] cc: JUDI YOUSSEF ; Zeferino Armas M.D. The [place] [id number] Patient Name: CONSTANTINO MENDIOLA MRN: [id number] date: 1970 Sex: F Assigned Patient Location: ER Current Patient Loca tion: ER Accession/Order Numb er: [id number] Exam Date: 05:00 Report Date: 08/28/2024 05:32 [...] D.O. Signed By: 08/28/2434 DD/ 1 TD/TT: Mechanical Lead: XR chest 1V Reviewed date:08/28/2024 08:57:50 AM Interpretation: Performing Lab: Notes/Report: Source Facility: [place] [address] [address] XRay Report Signed Patient: CONSTANTINO MENDIOLA MR#: [id number] : 1970 Acct:[id number] Age/Sex: 54 / F ADM Date: 08/28/24 Loc: ER Attending Dr: Ordering Physician: Zeferino Armas M.D. Date of Service: 08/28/24 Procedure(s): XR chest 1V Accession Number(s): [id number] cc: JUDI YOUSSEF ; Zeferino Armas M.D. The [place] [address] Patient Name: CONSTANTINO MENDIOLA MRN: [id number] date: 1970 Sex: F Assigned Patient Location: ER Current Patient Location: ER Accession/Order Number: [id number] Exam Date: 08/28/2024 04:28 Report Date: 08/28/2024 [...] D.O. Signed By: 08/28/24529 DD/ 6 TD/TT: Mechanical Lead: The [address] [address] XRay Report Signed Patient: ARIELLE MENDIOLA MR#: [id number] : 1970 Acct:[id number] Age/Sex: 54 / F ADM Date: 08/28/24 Loc: ER Attending Dr: Ordering Physician: Zeferino Armas M.D. Date of Service: 08/28/24 Procedure(s): XR chest 1V Accession Number(s): [id number] cc: JUDI YOUSSEF ; Zeferino Armas M.D. [address] [address] Patient Name: CONSTANTINO MENDIOLA MRN: [id number] date: 1970 Sex: F Assigned Patient Location: ER Current Patient Loca tion: ER Accession/Order Numb er: [id number] Exam Date: 04:28 Report Date: 08/28/2024 05:27 [...] D.O. Signed By: 08/28/24529 DD/ 6 TD/TT: Mechanical Lead: ECG 12 lead Reviewed date:08/28/2024 08:57:50 AM Interpretation: Performing Lab: Notes/Report: Source Facility: [place] [address] [place] [address] Electrocardiograph Report Signed Patient: CONSTANTINO MENDIOLA MR#: [id number] : 1970 Acct:[id number] Age/Sex: 54 / F ADM Date: 08/28/24 Loc: ER Attending Dr: Ordering Physician: Zeferino Armas M.D. Date of Service: 08/28/24 Procedure(s): ECG 12 lead Accession Number(s): [id number] cc: The [facility] Test Date: 2024-08-28 Pat Name: CONSTANTINO MENDIOLA Department: Room: - Gender: Female Composite Engineer: : 1970 Requested By: JUDI YOUSSEF Order Number: [id number] Reading MD: JUAREZ CRUZ Measurements Intervals [place] Rate: 84 P: 37 MS: 140 QRS: 26 QRSD: 90 T: 45 QT: 392 QTc: 433 Interpretive Statements 1100 Sinus rhythm 9110 normal ECG Compared to ECG 04/13/2024 14:58:17 No significant changes Electronically Signed On 08-28-2024 6:55:52 EST by JUAREZ CRUZ Dictated By: Juarez Cruz D.O. Signed By: 08/28/24 0656 DD/ 0411 TD/TT: Mechanical Lead: [place] [address] Electrocardiograph Report Signed Patient: ARIELLE MENDIOLA MR#: [id number] : 1970 Acct:[id number] Age/Sex: 54 / F ADM Date: 08/28/24 Loc: ER Attending Dr: Ordering Physician: Zeferino Armas M.D. Date of Service: 08/28/24 Procedure(s): ECG 12 lead Accession Number(s): [id number] cc: [facility] Test Date: 2024-08-28 Pat Name: CONSTANTINO MENDIOLA Department: 66 Room: - Gender: Female Composite Engineer: : 1970 Requ ested By: JUDI YOUSSEF Order Number: [id number] Reading MD: JUAREZ CRUZ Measurements Intervals [place] Rate: 84 P: 37 MS: 140 QRS: 26 QRSD: 90 T: 45 QT: 392 QTc: 433 Interpretive Statements 1100 Sinus rhythm 9110 normal ECG Compared to ECG 04/13/2024 14:58:17 No significant changes Electronically Priya d On 08-28-2024 6:55:52 EST by JUAREZ CRUZ Dictated By: Juarez Cruz D.O. Signed By: 08/28/24 0656 DD/ 0411 TD/TT: Mechanical Lead: Troponin I High Sensitivity Reviewed date:08/28/2024 08:57:50 AM Interpretation: Performing Lab: Notes/Report: The [facility] , Troponin I High Sensitivity 38.7 4.0-51.3 pg/mL CUT-OFF POINTS HAVE BEEN ESTABLISHED BASED ON THE FOURTH UNIVERSAL DEFINITION OF MYOCARDIAL INFARCTION. THE UPPER REFERENCE LIMIT (URL) OF TROPONIN, DEFINED THE 99TH PERCENTILE OF cTnI DISTRIBUTION IN A REFERENCE POPULATION, HAS BEEN CONFIRMED THE DECISION THRESHOLD FOR PA DIAGNOSIS. 99TH PERCENTILE = 51.4 PG/ML NOTE: HIGH-SENSITIVITY TROPONIN ASSAY IS NOT INTENDED TO BE USED IN ISOLATION BUT SHOULD BE INTERPRETED IN CONJUNCTION WITH OTHER DIAGNOSTIC AND CLINICAL INFORMATION. Performing Lab: see note ML - [facility] LB PROF CHEM 8 (BAS METB) Reviewed date:08/28/2024 08:57:50 AM Interpretation: Performing Lab: Notes/Report: The [facility] , Sodium 143 136-145 mmol/L Potassium 3.9 [...] Performing Lab: see note ML - The [facility] LB CBC AUTO DIFF Reviewed date:08/28/2024 08:57:50 AM Interpretation: Performing Lab: Notes/Report: The [facility] , White Blood Count 8.4 4.0-11.0 10 [...] Performing Lab: see note ML - The [facility] LB XR KNEE LT 3V Reviewed date:06/25/2024 12:06:18 PM Interpretation: Performing Lab: Notes/Report: Source Facility: [facility] [place] [address] [place] [address] XRay Report Signed Patient: CONSTANTINO MENDIOLA MR#: [id number] : 1970 Acct:[id number] Age/Sex: 54 / F ADM Date: 06/24/24 Loc: ER Attending Dr: Ordering Physician: Zeferino Armas M.D. Date of Service: 06/24/24 Procedure(s): XR knee LT 3V Accession Number(s): [id number] cc: JUDI YOUSSEF ; Zeferino Armas M.D. [address] [id number] Patient Name: CONSTANTINO MENDIOLA MRN: [facility]:[id number] date: 1970 Sex: F Assigned Patient Location: ED.MAIN Current Patient Location: ER Accession/Order Number: [id number] Exam Date: 06/24/2024 01:30 Report Date: 06/24/2024 [...] ossicle at the tibial tubercle compatible with [place]-Schlatter's disease. Electronically authenticated by: LEO LAWRENCE Date: 06/24/2024 05:07 Dictated By: Leo Lawrence M.D. Signed By: 06/24/24 0510 DD/ 0507 TD/TT: Mechanical Lead: [place] [address] XRay Report Signed Patient: ARIELLE MENDIOLA MR#: [id number] : 1970 Acct:[id number] Age/Sex: 54 / F ADM Date: 06/24/24 Loc: ER Attending Dr: Ordering Physician: Zeferino Armas M.D. Date of Service: 06/24/24 Procedure(s): XR kne e LT 3V Accession Number(s): [id number] cc: JUDI YOUSSEF ; Zeferino Armas M.D. [place] [id number] Patient Name: CONSTANTINO MENDIOLA MRN: [id number] date: 1970 Sex: F Assigned Patient Location: ED.MAIN Current Patient Loca tion: ER Accession/Order Numb er: [id number] Exam Date: 01:30 Report Date: 06/24/2024 05:07 [...] jacob at the tibial tubercle compatible with [place]-Schlatter's disease. Electronically authenticated by: LEO LAWRENCE Date: 06/24/2024 05:07 Dictated By: Leo Lawrence M.D. Signed By: 06/24/24 0510 DD/ 0507 TD/TT: Mechanical Lead: CT abdomen pelvis w con Reviewed date:06/04/2024 09:49:37 AM Interpretation: Performing Lab: Notes/Report: Source Facility: [place] [address] CT Scan Report Signed Patient: CONSTANTINO MENDIOLA MR#: [id number] : 1970 Acct:[id number] Age/Sex: 54 / F ADM Date: 06/01/24 Loc: ER Attending Dr: Ordering Physician: Kathrin Quiros Date of Service: 06/01/24 Procedure(s): CT abdomen pelvis w con Accession Number(s): [id number] cc: JUDI YOUSSEF [address] [place] [address] Patient Name: CONSTANTINO MENDIOLA MRN: [id number] date: 1970 Sex: F Assigned Patient Location: ER Current Patient Location: ED.MAIN Accession/Order Number: [id number] Exam Date: 06/01/2024 22:21 Report Date: 06/01/2024 [...] M.D. Signed By: 06/01/242315 DD/ 12 TD/TT: Mechanical Lead: [place] [address] CT Scan Report Signed Patient: ARIELLE MNEDIOLA MR#: [id number] : 1970 Acct:[id number] Age/Sex: 54 / F ADM Date: 06/01/24 Loc: ER Attending Dr: Ordering Physician: Kathrin Quiros Date of Service: 06/01/24 Procedure(s): CT abd omen pelvis w con Accession Number(s): [id number] cc: JUDI YOUSSEF [place] [address] Patient Name: CONSTANTINO MENDIOLA MRN: [id number] date: 1970 Sex: F Assigned Patient Location: ER Current Patient Loca tion: ED.MAIN Accession/Order Numb er: [id number] Exam Date: 06/01/2024 22:21 Report Date: 06/01/2024 [...] M.D. Signed By: 06/01/242315 DD/ 12 TD/TT: Mechanical Lead: Troponin I High Sensitivity Reviewed date:06/04/2024 09:49:37 AM Interpretation: Performing Lab: Notes/Report: The [facility] , Troponin I High Sensitivity 25.5 4.0-51.3 pg/mL CUT-OFF POINTS HAVE BEEN ESTABLISHED BASED ON THE FOURTH UNIVERSAL DEFINITION OF MYOCARDIAL INFARCTION. THE UPPER REFERENCE LIMIT (URL) OF TROPONIN, DEFINED THE 99TH PERCENTILE OF cTnI DISTRIBUTION IN A REFERENCE POPULATION, HAS BEEN CONFIRMED THE DECISION THRESHOLD FOR PA DIAGNOSIS. 99TH PERCENTILE = 51.4 PG/ML NOTE: HIGH-SENSITIVITY TROPONIN ASSAY IS NOT INTENDED TO BE USED IN ISOLATION BUT SHOULD BE INTERPRETED IN CONJUNCTION WITH OTHER DIAGNOSTIC AND CLINICAL INFORMATION. Performing Lab: see note ML - [facility] LB PROF 14(COMP METB) Reviewed date:06/04/2024 09:49:37 AM Interpretation: Performing Lab: Notes/Report: The [facility] , Sodium 140 136-145 mmol/L Potassium 3.7 [...] Performing Lab: see note ML - The [facility] LB LIPASE Reviewed date:06/04/2024 09:49:37 AM Interpretation: Performing Lab: Notes/Report: The [facility] , Lipase 42.0 16.0-77.0 U/L Performing Lab: see note ML - [facility] LB LACTATE or LACTIC ACID Reviewed date:06/04/2024 09:49:37 AM Interpretation: Performing Lab: Notes/Report: The [facility] , Lactate/Lactic Acid 1.1 0.4-2.0 mmol/L Performing Lab: see note ML - [facility] LB CBC AUTO DIFF Reviewed date:06/04/2024 09:49:37 AM Interpretation: Performing Lab: Notes/Report: The [facility] , White Blood Count 6.5 4.0-11.0 10 [...] 3/uL Performing Lab: see note ML - [facility] LB CT abdomen pelvis wo con Reviewed date:04/16/2024 04:53:42 PM Interpretation: Performing Lab: Notes/Report: Source Facility: [place] [address] CT Scan Report Signed Patient: CONSTANTINO MENDIOLA MR#: [id number] : 1970 Acct:[id number] Age/Sex: 53 / F ADM Date: 04/13/24 Loc: ER Attending Dr: Ordering Physician: Aicha Wooten Date of Service: 04/13/24 Procedure(s): CT abdomen pelvis wo con Accession Number(s): [id number] cc: JUDI YOUSSEF [place] [address] Patient Name: CONSTANTINO MENDIOLA MRN: [id number] date: 1970 Sex: F Assigned Patient Location: ER Current Patient Location: ER Accession/Order Number: [id number] Exam Date: 04/13/2024 14:43 Report Date: 04/13/2024 [...] Signed By: 04/13/24 1532 DD/ 1530 TD/TT: Mechanical Lead: [place] [address] CT Scan Report Signed Patient: ARIELEL MENDIOLA MR#: [id number] : 1970 Acct:[id number] Age/Sex: 53 / F ADM Date: 04/13/24 Loc: ER Attending Dr: Ordering Physician: Aicha Wooten Date of Service: 04/13/24 Procedure(s): CT abd omen pelvis wo con Accession Number(s): [id number] cc: JUDI YOUSSEF [address] [address] Patient Name: CONSTANTINO MENDIOLA MRN: [id number] date: 1970 Sex: F Assigned Patient Location: ER Current Patient Loca tion: ER Accession/Order Numb er: [id number] Exam Date: 04/13/2024 14:43 Report Date: 04/13/2024 [...] Signed By: 04/13/24 1532 DD/ 1530 TD/TT: Mechanical Lead: ECG 12 lead Reviewed date:04/16/2024 04:53:42 PM Interpretation: Performing Lab: Notes/Report: Source Facility: [place] [address] [place] [address] Electrocardiograph Report Signed Patient: CONSTANTINO MENDIOLA MR#: [id number] : 1970 Acct:[id number] Age/Sex: 53 / F ADM Date: 04/13/24 Loc: ER Attending Dr: Ordering Physician: Aicha Wooten Date of Service: 04/13/24 Procedure(s): ECG 12 lead Accession Number(s): [id number] cc: The [facility] Test Date: 2024-04-13 Pat Name: CONSTANTINO MENDIOLA Department: Room: - Gender: Female Composite Engineer: : 1970 Requested By: JUDI YOUSSEF Order Number: [id number] Reading MD: JUAREZ CRUZ Measurements Intervals [place] Rate: 50 P: 54 MS: 160 QRS: 39 QRSD: 102 T: 54 QT: 484 QTc: 457 Interpretive Statements 1100 Sinus rhythm 8304 Long QTc interval 9150 abnormal ECG Compared to ECG 11/27/2023 14:34:20 Sinus bradycardia no longer present Electronically Signed On 04-13-2024 18:34:01 EDT by JUAREZ CRUZ Dictated By: Juarez Cruz D.O. Signed By: 04/13/24 1834 DD/ 1458 TD/TT: Mechanical Lead: [place] [address] Electrocardiograph Report Signed Patient: ARIELLE MENDIOLA MR#: [id number] : 1970 Acct:[id number] Age/Sex: 53 / F ADM Date: 04/13/24 Loc: ER Attending Dr: Ordering Physician: Aicha Wooten Date of Service: 04/13/24 Procedure(s): ECG 12 lead Accession Number(s): [id number] cc: The [facility] Test Date: 2024-04-13 Pat Name: CONSTANTINO MENDIOLA Department: 66 Room: - Gender: Female Composite Engineer: : 1970 Requ ested By: JUDI YOUSSEF Order Number: [id number] Reading MD: JUAREZ CRUZ Measurements Intervals [place] Rate: 50 P: 54 MS: 160 QRS: 39 QRSD: 102 T: 54 QT: 484 QTc: 457 Interpretive Statements 1100 Sinus rhythm 8304 Long QTc interval 9150 abnormal ECG Compared to ECG 11/27/2023 14:34:20 Sinus bradycardia no longer present Electronically Priya d On 04-13-2024 18:34:01 EDT by JUAREZ CRUZ Dictated By: Juarez Cruz D.O. Signed By: 04/13/24 1834 DD/ 1458 TD/TT: Mechanical Lead: Troponin I High Sensitivity Reviewed date:04/16/2024 04:53:42 PM Interpretation: Performing Lab: Notes/Report: The [facility] , Troponin I High Sensitivity 28.4 4.0-51.3 pg/mL CUT-OFF POINTS HAVE BEEN ESTABLISHED BASED ON THE FOURTH UNIVERSAL DEFINITION OF MYOCARDIAL INFARCTION. THE UPPER REFERENCE LIMIT (URL) OF TROPONIN, DEFINED THE 99TH PERCENTILE OF cTnI DISTRIBUTION IN A REFERENCE POPULATION, HAS BEEN CONFIRMED THE DECISION THRESHOLD FOR PA DIAGNOSIS. 99TH PERCENTILE = 51.4 PG/ML NOTE: HIGH-SENSITIVITY TROPONIN ASSAY IS NOT INTENDED TO BE USED IN ISOLATION BUT SHOULD BE INTERPRETED IN CONJUNCTION WITH OTHER DIAGNOSTIC AND CLINICAL INFORMATION. Performing Lab: see note ML - The [facility] LB URINE MICROSCOPIC ONLY Reviewed date:04/16/2024 04:53:42 PM Interpretation: Performing Lab: Notes/Report: The [facility] , WBC Urine NONE SEEN NONE SEEN #/HPF RBC Urine 0-2 0-2 #/HPF Bacteria Urine NONE SEEN NONE SEEN #/HPF Mucus Urine NONE SEEN NONE SEEN Squamous Epithelial Cell Urine RARE NONE/RARE #/LPF Crystals Seen? None Seen None Seen #/HPF Cast Seen? NONE SEEN NONE SEEN #/LPF Urine Culture Indicated NO Performing Lab: see note ML - The [facility] LB UA (CLEAN or CATCH) CLIENT PROGRAM MANAGER or M ICRO IF IND. Reviewed date:04/16/2024 04:53:42 PM Interpretation: Performing Lab: Notes/Report: The [facility] , Color Urine LT. YELLOW YELLOW Clarity Urine CLEAR CLEAR Specific [place] Urine 1.020 1.005-1.025 pH Urine 5.5 5.0-9.0 Protein Urine NEGATIVE NEG/TRACE mg/dL Glucose Urine UA NEGATIVE NEGATIVE mg/dL Bilirubin Urine NEGATIVE NEGATIVE Ketones Urine NEGATIVE NEGATIVE mg/dL Blood Urine TRACE-I NEGATIVE Nitrite Urine NEGATIVE NEGATIVE Urobilinogen Urine 0.2 0.2-1.0 EU/dL Leukocyte Esterase Urine NEGATIVE NEGATIVE Urine Microscopic Indicated YES Performing Lab: see note ML - [facility] LB PROF 14(COMP METB) Reviewed date:04/16/2024 04:53:42 PM Interpretation: Performing Lab: Notes/Report: The [facility] , Sodium 141 136-145 mmol/L Potassium 3.5 [...] 1.0 Performing Lab: see note ML - [facility] LB LIPASE Reviewed date:04/16/2024 04:53:42 PM Interpretation: Performing Lab: Notes/Report: The [facility] , Lipase 39.0 16.0-77.0 U/L Performing Lab: see note ML - [facility] LB LACTATE or LACTIC ACID Reviewed date:04/16/2024 04:53:42 PM Interpretation: Performing Lab: Notes/Report: The [facility] , Lactate/Lactic Acid 1.0 0.4-2.0 mmol/L Performing Lab: see note ML - [facility] LB CBC AUTO DIFF Reviewed date:04/16/2024 04:53:42 PM Interpretation: Performing Lab: Notes/Report: The [facility] , White Blood Count 7.7 4.0-11.0 10 [...] Performing Lab: see note ML - The [facility] CA echo doppler complete Reviewed date:03/14/2024 11:58:27 AM Interpretation: Performing Lab: Notes/Report: Source Facility: [facility] [place] [address] [place] [address] Cardiology Report Signed Patient: CONSTANTINO MENDIOLA MR#: [id number] : 1970 Acct:[id number] Age/Sex: 53 / F ADM Date: 03/13/24 Loc: CARD Attending Dr: Edison Heart M.D. Ordering Physician: Edison Heart M.D. Date of Service: 03/13/24 Procedure(s): CA echo doppler complete Accession Number(s): [id number] cc: JUDI YOUSSEF ; Edison Heart M.D. Patient Name: CONSTANTINO MENDIOLA MR#: [id number] : 1970 Exam Date: 03/13/2024 Ordering Doctor: [...] Area (VTI): 2.89 cm2, 2.89 cm2 Deceleration [place]: Pressure Half-Time: Peak Velocity(Antegrade Flow): 1.01 m/s [...] Signed By: 03/14/24 1017 DD/ 1016 TD/TT: Mechanical Lead: [place] [address] Cardiology Report Signed Patient: ARIELLE MENDIOLA MR#: [id number] : 1970 Acct:[id number] Age/Sex: 53 / F ADM Date: 03/13/24 Loc: CARD Attending Dr: Edison Heart M.D. Ordering Physician: Edison Heart M.D. Date of Service: 03/13/24 Procedure(s): CA ech o doppler complete Accession Number(s): [id number] cc: JUDI YOUSSEF ; Edison Heart M.D. Patient Name: CONSTANTINO MENDIOLA MR#: [id number] : 1970 Exam Date: 03/13/2024 Ordering Doctor: [facility]DRY [facility] ECHOCARDIOGRAM REPORT PROCEDURE: CA ECHO DOPPLER COMPLETE INDICATIONS: CA COMPARISON: None. DESCRIPTION: COMPLET E ECHOCARDIOGRAM Real-time transthoracic echocardiography wit h 2D, [...] Area (VTI): 2.89 cm2, 2.89 cm2 Deceleration [place]: Pressure Half-Time: Peak Velocity(Antegr tracie Flow): 1.01 [...] Signed By: 03/14/24 1017 DD/ 1016 TD/TT: Mechanical Lead: PROF CHELA Lopez ([facility]) Reviewed date:01/21/2025 01:56:32 PM Interpretation: Performing Lab: Notes/Report: The [facility] , Sodium 144 136-145 mmol/L Potassium 4.4 [...] Performing Lab: see note ML - The [facility] LB CBC AUTO DIFF Reviewed date:01/21/2025 01:56:32 PM Interpretation: Performing Lab: Notes/Report: The [facility] , White Blood Count 6.6 4.0-11.0 10 [...] Performing Lab: see note ML - The [facility] LB Reason For Referral Reason hypoglycemia Diagnosis 1 Hypoglycemia (E16.2) Referral Organization [facility] Referring Provider First Name Judi Referring Provider Last Name Regina Referring Provider Speciality Family [facility] melo Referred Provider Kulwant Hodge Referred Provider Specialty Endocrinolog y Referral Priority Routine Medications Medication SIG (Take, Route, Frequency, Duration) Notes Start Date End Date Status Lisinopril 40 MG 1 tablet Orally Once a day for 30 days 03/20/2024 Active Metoclopramide HCl 5 MG TAKE 1 TABLET BY MOUTH BEFORE MEALS AND AT BEDTIME for 30 Active Dicyclomine HCl 20 MG 1 tablet [...] (SHINGLES) VACCINE (HZV) Unknown 04/27/2024 Admi nistered ZOSTER (SHINGLES) VACCINE (HZV) Unknown 02/19/2025 Admi nistered Social History Tobacco Use: Social History Observation Description Date Details (start date - stop date) Never Smoker NA - NA Tobacco Use/Smoking Question Answer Notes Patient is a nonsmoker Alcohol Screen (Audit-C) Question Answer Notes Did you have a drink containing alcohol in the p ast year? No Points 0 Interpretation Negative AUDIT-C (Standard) Question Answer Notes Did you have a drink containing alcohol in the p ast year? 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 Problem 488124431 Functional dyspepsia (K30) Active confirmed Problem Gastroparesis (547047385) Gastroparesis (K31.84) Active confirmed Problem Gastroesophageal reflux disease (675274701) GERD (gastroesophageal reflux disease) (K21.9) Active confirmed Problem Hypertension (71888118) HTN (hypertension) (I10) Active confirmed Problem Palpitations (26532084) Palpitation (R00.2) Active confirmed Problem Tachycardia (4349090) Tachycardia (R00.0) Active confirmed Problem Depression (922358746) Depression (F32.9) Active confirmed Problem Degeneration of lumbar intervertebral disc (88300615) Lumbar degenerative disc disease (M51.36) Active confirmed Problem Urinary tract infectious disease (88742104) UTI (urinary tract infection) (N39.0) Active confirmed Problem Vitamin D deficiency (53647084) Vitamin D deficiency (E55.9) Active confirmed Problem Dysphagia (25683108) Dysphagia (R13.10) Active confirmed Problem Hypoglycemia (723013150) Hypoglycemia (E16.2) Active confirmed Problem Diverticulitis (386161359) Diverticulitis (K57.92) Active confirmed Problem Neutropenia (371758312) Neutropenia (D70.9) Active confirmed Problem Iron deficiency anemia (77947446) Anemia, iron deficiency (D50.9) Active confirmed Problem Gastro-esophageal reflux (333786017) Gastro-esophageal reflux (K21.9) Active confirmed Problem Ileus (415539804) Ileus (K56.7) Active confirme d Problem Malnutrition of moderate degree (Horner: 60% to less than 75% of standard weight) (40852044) Moderate protein malnutrition (E44.0) Active confirmed Problem Intestinal obstruction (11768449) SBO (small bowel obstruction) (K56.609) Active confirmed Vital Signs Blood pressure diastolic 90 mm Hg 02/07/2025 Height 67 in 02/07/2025 Blood pressure systolic 158 mm Hg 02/07/2025 Weight 187.8 lbs 02/07/2025 BMI 29.41 kg/m2 02/07/2025 Encounters Encounter Location Date Provider Diagnosis [address] [address] 09/03/2024 Judi Youssef Ileus K56.7 [place] [phone] 10/26/2024 Judi Youssef Seizure R56.[address] [address] 12/21/2024 Judi Youssef Muscle strain T14.8X XA [facility] [address] [place] [address] 02/07/2025 Judi Youssef UTI (urinary tract infection) N39.0 ; HTN (hypertension) I10 and Functional dyspepsia K30 [address] [address] 04/27/2024 Judi Youssef Hypoglycemia E16.[address] [address] 11/27/2024 Judi Regina [address] [address] 11/28/2024 Judi Youssef [facility] [address] [facility] [place] [address] 01/09/2025 Judi Youssef [facility] [address] [facility] [place] [address] 01/10/2025 Judi Youssef [facility] [address] [facility] [place] [address] 07/19/2024 Judi Youssef Renal lesion N28.9 [facility] [address] [facility] [place] [address] 08/31/2024 Judi Youssef [facility] [address] [facility] [place] [address] 09/03/2024 Judi Youssef [facility] [address] [facility] [place] [address] 09/17/2024 Judi Youssef [facility] [address] [facility] [place] [facility] [place] [address] 09/21/2024 Isaac Dmitriy [facility] [address] [facility] [place] [facility] [place] [address] 11/19/2024 Judi Youssef Vitamin D deficiency E55.9 and Vitamin B12 deficiency E53.8 [facility] [address] [facility] [place] [address] 03/20/2024 Judi Youssef Assessments Encounter Date Diagnosis [...] not helping reglan has helped in past 12/21/2024 Other has [...] 2_3 VIEWS 11/21/2023 THYROID PANEL (T4/TSH/FREE T3) XR HIP LT 2 3V W PELVIS 11/02/2023 Holter Monitor - 3 days up to 14 days Vitamin D 11/19/2024 Insurance Providers Payer Name Payer Address Payer Phone Subscriber Number Group Number Insured Name Patient Relationship to Insured Coverage Start Date Coverage End Date ANTHEM ACCESS PPO PLUS LOCAL PLAN [address] [place] [phone] [id number] Constantino Cooper Self - patient is the insured 3 Medical (General) History Medical History History ICD Code Mitrovalve prolapse Acute diverticulitis K57.92 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
--- OUTSIDE RECORDS SUMMARY | 2025-03-14 18:42 | XMS_ITS | Patient Health Record ---
Author Organization [facility] Address [address] [place] [address] Care Team Providers Care Roll Edge Machine Operator Name Role Phone Judi Tapia Primary Care Provider Samuel Steve Unavailable [phone] Nichole Anglin Unavailable Allergies Allergen (clinical drug ingredient) Drug/Non Drug Allergy documented on EMR Reaction Allergy Type Onset Date Status penicillin (uncoded) Unknown Allergy Active Flexeril Unknown Drug Allergy Active Reason For Referral Reason APPROVED ........... ..............PLEASE OBTAIN AUTHORIZATION FOR LEFT KNEE MRI Diagnosis 1 Acute pain of left k nee (M25.562) Referral Organization [facility] Referring Provider First Name Nichole Referring [facility] Referring Provider Speciality Physician Manager Nc [facility] Referred Address [place], [place], Procedure 1 MRI Joint Lower Ext w/o Dye ([address]) General Notes Aicha Hooper 024 11:40:10 AM >APPROVED PER JAZZYJorge L VALID 07/02/2024-07/31/2024 COPY IN CHART MA NOTIFIED REF FAXED TO Mayda CONLEY Kimberly 07/02/2024 01:00:55 PM >Faxed order to [facility] Referral Priority Routine Reason APPROVED for MRI LT knee Diagnosis 1 Acute pain of left k nee (M25.562) Referral Organization [facility] Referring Provider First Name Ponce Referring Provider Last Name Tamela Referring Provider Speciality Orthopedic Surgery Referred Organization [facility] Referred Address [address] [place],[address],[place] General Notes eDnice Dao 09:18:02 AM >PLEASE CHECK NOTE FROM [...] Speciality Nurse Prac titioner Referred Organization [facility] Referred Address [address],[place],[address],[place] General Notes Marisela Varghese 03:18:38 PM > 07/16 needing dictation please, Abimael mchugh Jessika 07/19/2024 10:48:16 AM > 07/16 can you please check dx, Kevin mchugh Lisa 07/20/2024 08:25:05 AM >Abimael tay Jessika 07/20/2024 08:39:07 AM > faxed note, mri report and [facility] Referral Priority Routine Reason AD BWC - RTW NO REST RICTIONS 08/07 Diagnosis 1 Contusion of left kn ee, subsequent encounter (S80.02XD) Referral Organization [facility] Referring Provider First Name Samuel Referring Provider Last Name [place] Referring Provider Speciality Orthopedic Surgery [facility] Referred Address [address],[place],[address], General Notes Marisela Varghese 03:31:51 PM > [...] W/U Status Risk Notes Problem Contusion of knee (53848607) Contusion of knee, left (S80.02XA) Active confirmed Problem Contusion of left knee ([id number] 9109) Contusion of left knee, subsequent encounter (S80.02XD) Active confirmed Vital Signs Height 5'1 in 08/06/2024 Weight 182 lbs 08/06/2024 BMI 34.38 08/06/2024 Encounters Encounter Location Date Provider Diagnosis [facility] [address] [place] [address] 07/02/2024 Nichole Villaiteland Effusion, left knee M25.462 and Contusion of knee, left S80.02XA [facility] [address] [facility] [place] [address] 07/16/2024 Nichole Villaiteland Contusion of left knee, subsequent encounter S80.02XD [facility] [address] [place] [address] 08/06/2024 Samuel Harp Contusion of left knee, [...] MRI : Knee W/O Contrast Left - [id number] Insurance Providers Payer Name Payer Address Payer Phone Subscriber Number Group Number Insured Name Patient Relationship to Insured Coverage Start Date Coverage End Date Lizette- SI only [address] [place] [address] [phone] DOI 24 lt knee CONSTANTINO CARDOSO Self - patient is the insured 4 [facility] [address] [place] [address] [id number] CONSTANTINO CARDOSO Self - patient is the insured Medical (General) History Medical History History ICD Code Heart problems: High Blood Pressure
--- OUTSIDE RECORDS SUMMARY | 2025-03-14 18:42 | XMS_ITS | Encounter Summary ---
Author Organization [facility] Address [address] [place] [address] Care Team Providers Care Safety Coordinator Name Role Phone Judi Tapia PARTY PLAN SALES AGENT - MUSKRAT TRAPPER Primary Care Provide r Encounter Details Date Type Department Care Team (Latest Contact Info) Description 02/26/2025 Prep for Procedure [facility] Gastroenterology [address] [facility] [address] [place] [address] Jose Miguel Lucero MD [address] [facility] [address] [place], [place] [phone] Screening for colon cancer Social History Tobacco Use Types Packs/Day Years Used Date Smoking Tobacco: Former Cigarettes Smokeless Tobacco: Never Alcohol Use Standard Drinks/Week Comments Yes 0 (1 standard drink = 0.6 oz pur e alcohol) Rare [facility] Utilities Answer Date Recorded In the past 12 months has [employer], gas, oil, or water [employer] threatened to shut off services in your [...] any time in the past 12 m onths, were you homeless or living in a [place] (including now)? No 08/28/2024 Food Insecurity Answer [...] as of this encounter Plan of Treatment Upcoming Encounters Date Type Department Care Team (Latest Contact Info) Description 03/18/2025 8:45 AM EDT Appointment [facility]mit [facility] [address] [place] [address] OR 04/01 & 04/1904/01/2025 11:45 AM EDT Hospital Encounter [facility] [address] [place] [address] Jose Miguel Lucero MD [address] [facility] [address] [place] [address] 04/01/2025 11:45 AM EDT - 04/01/2025 12:00 PM EDT Surgery [facility] [address] [place] [address] [place] [address] [place], [place] [address] [address] [place] [address] ESOPHAGOGASTRODUODENOSCOPY BIOPSY 04/19/2025 12:30 PM EDT Hospital Encounter [facility] [address] [place] [address] Jose Miguel Lucero MD [facility] [address] [address] 04/19/2025 12:30 PM EDT - 04/19/2025 1:00 PM EDT Surgery [facility] [address] [place] [address] Jose Miguel Lucero MD [address] [place] [address] COLORECTAL CANCER SCREENING, NOT HIGH RISK Scheduled Procedures Name Priority Associated Diagnoses Date/Ti me ESOPHAGOGASTRODUODENOSCOPY BIOPSY Gastroesophageal reflux disease, unspecified whether esophagitis present 04/01/2025 11:45 AM EDT COLORECTAL CANCER SCREENING, NOT HIGH RISK Dysphagia, unspecified Screening for colon cancer 04/19/2025 12:30 PM EDT documented as of this encounter Visit Diagnoses Diagnosis Screening for colon cancer Special screening for malignant neoplasms, colon Screening for colon cancer Special screening for malignant neoplasms, colon Dysphagia, unspecified Gastroesophageal reflux disease, unspecified whether esophagitis present Dysphagia, unspecified Screening for colon cancer Special screening for malignant neoplasms, colon documented in this encounter Care Teams Safety Coordinator Relationship Specialty Start Date End Date Judi Tapia, PARTY PLAN SALES AGENT - MUSKRAT TRAPPER [address] [place] [address] PCP - General 08/29/24 documented as of this encounter
--- OUTSIDE RECORDS SUMMARY | 2025-03-14 18:42 | XMS_ITS | Encounter Summary ---
Author Organization [facility] Address [address] [place] [address] Care Team Providers Care Seasoning Mixer Name Role Phone Judi Tapia INSPECTOR DIALS - INDUSTRIAL ENGINEERING DIRECTOR Primary Care Provide r Reason for Visit * Reason Onset Date Comments Procedure 02/26/2025 EGD/colon Encounter Details Date Type Department Care Team ([facility] Contact Info) Description 02/26/2025 Telephone [facility] Gastroenterology [address] [facility] [address] [place] [address] Jose Miguel Lucero MD [address] [facility] [address] [place] [id number] Procedure (EGD/colon) Social History Tobacco Use Types Packs/Day Years Used Date Smoking Tobacco: Former Cigarettes Smokeless Tobacco: Never Alcohol Use Standard Drinks/Week Comments Yes 0 (1 standard drink = 0.6 oz pur e alcohol) Rare [facility] Utilities Answer Date Recorded In the past 12 months has [employer], gas, oil, or water company threatened to [...] any time in the past 12 m [facility], were you homeless or living in a [facility] (including now)? No 08/28/2024 Food Insecurity Answer [...] AM EDT Appointment [facility] Pre-Admit Testing [address] [place] [address] OR 04/01 & 04/1904/01/2025 11:45 AM EDT Hospital Encounter [facility] [address] [facility] [place] [address] Jose Miguel Lucero MD [address] [facility] [address] [place] [address] 04/01/2025 11:45 AM EDT - 04/01/2025 12:00 PM EDT Surgery [facility] [address] [facility] [place] [address] Jose Miguel Lucero MD [address] [facility] [address] [address] ESOPHAGOGASTRODUODENOSCOPY BIOPSY 04/19/2025 12:30 PM EDT Hospital Encounter [facility] [address] [place] [address] Jose Miguel Lucero MD [address] [address] 04/19/2025 12:30 PM EDT - 04/19/2025 1:00 PM EDT Surgery [facility] [address] [place] [address] Jose Miguel Lucero MD [address] [address] COLORECTAL CANCER SCREENING, NOT HIGH RISK Scheduled Procedures Name Priority Associated Diagnoses Date/Ti pr ESOPHAGOGASTRODUODENOSCOPY BIOPSY Gastroesophageal reflux disease, unspecified whether esophagitis present 04/01/2025 11:45 AM EDT COLORECTAL CANCER SCREENING, NOT HIGH RISK Dysphagia, unspecified Screening for colon cancer 04/19/2025 12:30 PM EDT documented as of this encounter Visit Diagnoses Not on filedocumented in this encounter Care Teams Seasoning Mixer Relationship Specialty Start Date End Date Judi Tapia, INSPECTOR DIALS - INDUSTRIAL ENGINEERING DIRECTOR [address] [place] [address] [place] [address] PCP - General 08/29/24 documented as of this encounter
--- OUTSIDE RECORDS SUMMARY | 2025-03-14 18:42 | XMS_ITS | Encounter Summary ---
Author Organization [facility] Address [address] [place] [address] Care Team Providers Care Corporate Licensed Broker Name Role Phone Judi Tapia POWERTRAIN DESIGN ENGINEER - BIAS CUTTING MACHINE OPERATOR VERTICAL Primary Care Provide r Encounter Details Date Type Department Care Team ([facility] Contact Info) Description 03/14/2025 Prep for Procedure [facility] Gastroenterology [address] [facility] [address] [place] [address] Jose Miguel Lucero MD [address] [facility] [address] [place] [address] Social History Tobacco Use Types Packs/Day Years Used Date Smoking Tobacco: Former Cigarettes Smokeless Tobacco: Never Alcohol Use Standard Drinks/Week Comments Yes 0 (1 standard drink = 0.6 oz pur e alcohol) Rare [facility] Utilities Answer Date Recorded In the past 12 months has [employer], gas, oil, or water [employer] threatened to shut off services in your [...] any time in the past 12 m [facility], were you homeless or living in a residential (including now)? No 08/28/2024 Food Insecurity Answer [...] Info) Description 03/18/2025 8:45 AM EDT Appointment [facility] Pre-Admit Testing [address] [place] [address] OR 04/01 & 04/1904/01/2025 11:45 AM EDT Hospital Encounter [facility] [address] [place] [address] Jose Miguel Lucero MD [address] [facility] [address] [place] [address] 04/01/2025 11:45 AM EDT - 04/01/2025 12:00 PM EDT Surgery [facility] [address] [place] [address] Jose Miguel Lucero MD [address] [facility] [address] [place] [address] ESOPHAGOGASTRODUODENOSCOPY BIOPSY 04/19/2025 12:30 PM EDT Hospital Encounter [facility] [address] [place] [address] Jose Miguel Lucero MD [facility] [address] [address] 04/19/2025 12:30 PM EDT - 04/19/2025 1:00 PM EDT Surgery [facility] [address] [place] [address] Jose Miguel Lucero MD [facility] [address] [address] COLORECTAL CANCER SCREENING, NOT HIGH RISK Scheduled Procedures Name Priority Associated Diagnoses Date/Ti me ESOPHAGOGASTRODUODENOSCOPY BIOPSY Gastroesophageal reflux disease, unspecified whether esophagitis present 04/01/2025 11:45 AM EDT COLORECTAL CANCER SCREENING, NOT HIGH RISK Dysphagia, unspecified Screening for colon cancer 04/19/2025 12:30 PM EDT documented as of this encounter Visit Diagnoses Not on filedocumented in this encounter Care Teams Corporate Licensed Broker Relationship Specialty Start Date End Date Judi Tapia, POWERTRAIN DESIGN ENGINEER - BIAS CUTTING MACHINE OPERATOR VERTICAL [address] [place] [address] [place] [address] PCP - General 08/29/24 documented as of this encounter
--- OUTSIDE RECORDS SUMMARY | 2025-03-14 18:42 | XMS_ITS | Clinical Summary ---
Author Organization [facility] Address [address] [place] [address] Care Team Providers Care Mold Filling Operator Name Role Phone Unallocated, Noms Provider Primary Care Provi christine Judi Tapia MD Unavailable [phone] Nikki Ayoub Unavailable Allergies Active Allergy [...] Take 20 mg by mouth Daily 03/19/2024 Active metoprolol succinate XL (Toprol-XL) 50 MG 24 hr tablet Take 50 mg by mouth in the morning. 02/15/2024 Active pantoprazole (ProtoNix) 40 MG EC tablet [...] Active levETIRAcetam (Keppra) 1000 MG tabletIndicatio ns:Seizure (HCC) Take 1 tablet (1,000 mg) by mouth in the morning and 1 tablet (1,000 mg) before bedtime. 60 tablet 3 01/07/2025 Active Encounters Date Type Department Care Team Description 01/16/2025 Telephone [place] [phone] [address] [phone] Marbin Wong ARRT Sleep Study Referral 01/07/2025 2:20 PM EDT Office Visit [place] [id number] [phone] Nikki Ayoub PA Seizure (HCC) (Primary Dx); History of obstructive sleep apnea; Migraine without aura and without status migrainosus, not intractable ; Dizziness 01/07/2025 Bamboo flowsheet [place] [phone] [address] [phone] Nikki Ayoub PA from Last 3 Months [...] 2000 HPV/Cotest 2000 Mammogram 2010 Influenza Vaccine (#1) 2025 06/09/2022 Colonoscopy 03/13/2030 03/13/2020, 05/17/2019 Colorectal Cancer Screening 03/13/2030 Procedures Procedure Name Priority Date/Time Associated Diagnosis Comments LEVETIRACETAM LEVEL Routine 01/15/2025 2:45 PM ED T Seizure (HCC) from Last 3 Months Results * Levetiracetam level (01/15/2025 2:45 PM EDT) Blood Venous blood specimen / Unknown Nikki [facility] LAB BLOOD ORDERABLES Final Resul t EXTERNAL LAB from Last 3 Months Insurance BS Care Teams Mold Filling Operator Relationship Specialty Start Date End Date Unallocated, Noms Edin, [place] [address] PCP - General 04/25/23 Judi Tapia MD [address] [place] [address] [phone] Referring Physician Family Medicine 04/25/23 Nikki Ayoub PA [address] [place] [address] [phone] Physician Sales Office Manager Neurology 11/26/24
--- NOTE | 2025-03-14 18:55 | ED.GENADUL1 ---
HPI HPI - General Adult General Chief complaint: Abdominal Pain Stated complaint: Abdominal Pain Time Seen by Provider: 03/14/25 18:42 Source: patient Mode of arrival: walk-in Limitations: no limitations History of Present Illness HPI narrative: Patient presents with longstanding history of abdominal pain chest pain shortness of breath hernia. States she had hiatal hernia repair in 2017. She was seen at another ER 2 days ago. States her symptoms persist. Onset (ago): week(s) (one week) Location: Reports chest and abdomen Severity: moderate Quality: Reports constant Exacerbating factors: Reports movement (Including ambulation) Associated symptoms: Reports nausea/vomiting Treatments prior to arrival: Reports NSAID and other (tylenol) Related Data Home Medications ?Medication ?Instructions ?Recorded ?Confirmed pantoprazole 40 mg tablet,delayed 40 mg PO DAILY 12/15/23 03/14/25 release cholecalciferol (vitamin D3) 50 50 mcg PO DAILY 04/13/24 02/08/25 mcg (2,000 unit) capsule metoprolol succinate 50 mg 50 mg PO DAILY 04/13/24 02/08/25 tablet,extended release 24 hr sertraline 50 mg tablet 50 mg PO DAILY 04/13/24 03/14/25 acarbose 25 mg tablet 25 mg PO BID 12/18/24 03/14/25 aspirin 81 mg tablet,delayed 81 mg PO DAILY 12/18/24 03/14/25 release levetiracetam 750 mg tablet 1,000 mg PO Q12H 12/18/24 03/14/25 multivitamin with folic acid 400 1 tab PO DAILY 12/18/24 02/08/25 mcg tablet (Daily-Reena (with folic acid)) promethazine 25 mg tablet 25 mg PO Q6H PRN nausea and 12/18/24 02/08/25 vomiting lisinopril 40 mg tablet 40 mg PO DAILY 02/08/25 03/14/25 metoclopramide HCl 5 mg tablet 5 mg 02/08/25 sucralfate 100 mg/mL oral 03/14/25 suspension Previous Rx's ?Medication ?Instructions ?Recorded ondansetron 4 mg disintegrating 4 mg PO Q8H PRN nausea and 04/13/24 tablet vomiting 3 days #10 tabs pantoprazole 40 mg tablet,delayed 40 mg PO DAILY 4 weeks #28 tabs 03/14/25 release (Protonix) Allergies Allergy/AdvReac Type Severity Reaction Status Date / Time cyclobenzaprine (From Allergy Severe Anaphylaxis Verified 03/14/25 18:41 Flexeril) Penicillins Allergy Intermediate Hives Verified 03/14/25 18:41 Opioid HPI Opioid Management Most Recent Opioid Data: Last Pain Scale 10 03/14/25, 18:38 Last ED Pain Assessment 03/14/25, 20:15 Last ORT Total Score 0 11/27/23, 09:50 Last ORT Risk Category Low Risk 11/27/23, 09:50 Ur Phencyclidine Scrn, (NEGATIVE) Negative 12/18/24, 08:34 Review of Systems ROS Status of ROS 10 or more systems reviewed and unremarkable except as noted in history and below Respiratory Reports: shortness of breath, cough and pain on inspiration; Denies: coughing up blood [facility] Medical History (Updated 03/14/25 @ 21:26 by EUN MCCARTY II) Partial obstruction of small intestine ?K56.600 - Partial intestinal obstruction, unspecified as to cause (ICD-10) Constipation ?K59.00 - Constipation, unspecified (ICD-10) Ileus ?K56.7 - Ileus, unspecified (ICD-10) Nausea and vomiting ?R11.2 - Nausea with vomiting, unspecified (ICD-10) GERD (gastroesophageal reflux disease) ?K21.9 - Gastro-esophageal reflux disease without esophagitis (ICD-10) Elevated troponin ?R77.8 - Other specified abnormalities of plasma proteins (ICD-10) Chronic upper abdominal pain ?R10.10 - Upper abdominal pain, unspecified (ICD-10) ?G89.29 - Other chronic pain (ICD-10) Epigastric abdominal pain ?R10.13 - Epigastric pain (ICD-10) Abdominal pain, chronic, generalized ?R10.84 - Generalized abdominal pain (ICD-10) ?G89.29 - Other chronic pain (ICD-10) Headache, migraine ?G43.909 - Migraine, unspecified, not intractable, without status migrainosus (ICD-10) Gastroparesis ?K31.84 - Gastroparesis (ICD-10) Mitral valve disorder ?I05.9 - Rheumatic mitral valve disease, unspecified (ICD-10) Surgical History 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 ?K95.89 - Other complications of other bariatric procedure (ICD-10) ?K22.4 - Dyskinesia of esophagus (ICD-10) History of hernia surgery ?Z98.890 - Other specified postprocedural states (ICD-10) ?Z87.19 - Personal history of other diseases of the digestive system (ICD-10) FH: cholecystectomy ?Z83.79 - Family history of other diseases of the digestive system (ICD-10) H/O: hysterectomy ?Z90.710 - Acquired absence of both cervix and uterus (ICD-10) Family History Father Family history of myocardial infarction Family history of cancer Grandmother Family history of diabetes mellitus Family history of stroke Sister Family history of hypertension Social History Within the past year, how often did you have a drink containing alcohol: never Within the past year, how many standard drinks containing alcohol did you have on a typical day: 1 or 2 Within the past year, how often did you have six or more drinks on one occasion: never Total score: 0 Score interpretation: A score less than 3 is consistent with normal alcohol consumption. 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 Known occupational exposures/hazards: No Highest level of school completed/degree received: high school graduate Do you want help with school or training: No Are you now , , , , never or living with a partner: In a typical week, how many times do you talk on the telephone with family, friends, or neighbors: 3 or more times per week How often do you get together with friends or relatives: 3 or more times per week How often do you attend episcopal or mandaen services: never Do you belong to any clubs or organizations such as episcopal groups unions, fraternal or athletic groups, or school groups: no Total score: 2 Score interpretation: A score of greater than or equal to 2 indicates the lowest level of social isolation. Little interest or pleasure in doing things: not at all Feeling down, depressed, or hopeless: not at all Feel stressed/tense/nervous/anxious/difficulty sleeping: not at all Due to disability, difficulty making decisions: No Do you think of yourself as: straight/heterosexual Gender Identity: female Exam Constitutional Vital Signs, click to edit/add: Last Vital Signs Temp 98.9 F 03/14/25 18:38 Pulse 62 03/14/25 19:32 Resp 20 03/14/25 19:32 BP 140/84 03/14/25 19:32 Pulse Ox 97 03/14/25 19:32 O2 Del Method Room Air 03/14/25 19:32 Course Vital Signs Vital signs: Vital Signs Temperature 98.9 F 03/14/25 18:38 Pulse Rate 68 03/14/25 18:38 Respiratory Rate 18 03/14/25 18:38 Blood Pressure 137/89 03/14/25 18:38 Pulse Oximetry 97 03/14/25 18:38 Oxygen Delivery Method Room Air 03/14/25 18:38 Temperature 98.9 F 03/14/25 18:38 Pulse Rate 62 03/14/25 19:32 Respiratory Rate 20 03/14/25 19:32 Blood Pressure 140/84 03/14/25 19:32 Pulse Oximetry 97 03/14/25 19:32 Oxygen Delivery Method Room Air 03/14/25 19:32 Medical Decision Making Lab Data Labs: Lab Results 03/14/25 03/14/25 Range/Units 19:15 20:03 WBC 7.9 (4.0-11.0) 10^3/uL RBC 4.10 L (4.20-5.40) 10^6/uL Hgb 12.1 (12.0-16.0) g/dL Hct 37.4 (36.0-48.0) % MCV 91.2 (81.0-99.0) fL MCH 29.5 (26.7-34.0) pg MCHC 32.4 (29.9-35.2) g/dL RDW 13.0 (11.0-15.0) % Plt Count 363 (150-450) 10^3/uL MPV 9.2 L (9.5-13.5) fL Neut % (Auto) 79.1 H (43.0-75.0) % Lymph % (Auto) 14.8 L (20.5-60.0) % [place] % (Auto) 4.2 (1.7-12.0) % Eos % (Auto) 1.3 (0.9-7.0) % Baso % (Auto) 0.3 (0.2-2.0) % Neut # (Auto) 6.2 (1.4-6.5) 10^3/uL Lymph # (Auto) 1.2 (1.2-3.8) 10^3/uL [place] # (Auto) 0.3 (0.3-0.8) 10^3/uL Eos # (Auto) 0.1 (0.0-0.7) 10^3/uL Baso # (Auto) 0.0 (0.0-0.1) 10^3/uL Abs Immat Gran (auto) 0.02 (0.00-0.03) 10^3/uL Imm/Tot Granulo (auto) 0.3 (0.0-0.5) % D-Dimer 0.25 (<=0.59) mg/L FEU Sodium 147 H (136-145) mmol/L Potassium 4.5 (3.5-5.1) mmol/L Chloride 110 H (98-107) mmol/L Carbon Dioxide 27.7 (21.0-32.0) mmol/L Anion Gap 13.8 BUN 29.0 H (7.0-18.0) mg/dL Creatinine 0.67 (0.55-1.02) mg/dL Est GFR ( Amer) >60 (>=60 mL/min/1.73m^2) Est GFR (Non-Af Amer) >60 (>=60 mL/min/1.73m^2) BUN/Creatinine Ratio 43.3 Glucose 119 H (74-106) mg/dL Calcium 9.6 (8.5-10.1) mg/dL Magnesium 2.1 (1.8-2.4) mg/dL Total Bilirubin 0.2 (0.2-1.0) mg/dL AST 15 (15-37) U/L ALT 23 (14-59) U/L Alkaline Phosphatase 147 H (46-116) U/L Troponin I High Sens 31.2 29.0 (4.0-51.3) pg/mL Total Protein 7.0 (6.4-8.2) g/dL Albumin 3.6 (3.4-5.0) g/dL Globulin 3.4 g/dL Albumin/Globulin Ratio 1.1 Lipase 57.0 (16.0-77.0) U/L Discharge Plan Discharge Chief Complaint: Abdominal Pain Clinical Impression: Abdominal pain, Kidney lesion, Constipation, Atypical chest pain, Nausea & vomiting Patient Disposition: Home, Self-Care Mode of Transportation: Private Vehicle Prescriptions / Home Meds: New pantoprazole [Protonix] 40 mg tablet,delayed release (DR/EC) 40 mg PO DAILY 28 Days Qty: 28 0RF No Action pantoprazole 40 mg tablet,delayed release (DR/EC) 40 mg PO DAILY metoprolol succinate 50 mg tablet extended release 24 hr 50 mg PO DAILY sertraline 50 mg tablet 50 mg PO DAILY cholecalciferol (vitamin D3) 50 mcg (2,000 unit) capsule 50 mcg PO DAILY ondansetron 4 mg tablet,disintegrating 4 mg PO Q8H PRN (Reason: nausea and vomiting) 3 Days Qty: 10 0RF aspirin 81 mg tablet,delayed release (DR/EC) 81 mg PO DAILY promethazine 25 mg tablet 25 mg PO Q6H PRN (Reason: nausea and vomiting) levetiracetam 750 mg tablet 1,000 mg PO Q12H acarbose 25 mg tablet 25 mg PO BID multivitamin with folic acid [Daily-Reena (with folic acid)] 400 mcg tablet 1 tab PO DAILY sucralfate 100 mg/mL suspension lisinopril 40 mg tablet 40 mg PO DAILY metoclopramide HCl 5 mg tablet 5 mg Print Language: Qatari Instructions: Chest Pain (ED), Constipation (DC), Acute Nausea and Vomiting (DC), Abdominal Pain (ED) Additional Instructions: Diet for 24 hours including water, Jell-O, popsicles, clear broth, Gatorade. Continue MiraLAX as directed. Continue taking Protonix 40 mg once daily. Continue metoclopramide as prescribed. Follow-up with primary care and gastroenterology. Referrals: Nikki Ayoub PA [Physician] - 1 week Discharge Date/Time: 03/14/25 21:56
--- NOTE | 2025-03-14 18:57 | XR_ITS ---
[facility] [place] [id number] Patient Name: CONSTANTINO CARDOSO MRN: [id number] date: 1970 Sex: F Assigned Patient Location: ER Current Patient Location: ER Accession/Order Number: [id number] Exam Date: 03/14/2025 19:17 Report Date: 03/14/2025 19:17 At the request of: VERONICA HAQ Procedure: XR chest 1V PA CHEST: CLINICAL HISTORY: cp COMPARISON: 12/18/2024 The heart is normal in size. The lungs are clear. The pulmonary vasculature is normal. Mediastinum and hilar regions are unremarkable. No pleural effusions are seen. Visualized bones are intact. XR/XR chest 1V IMPRESSION: NEGATIVE ACUTE PLEURAL-PARENCHYMAL DISEASE Impression dictated by: Surendra Casey M.D. 03/14/2025 7:17 PM Dictation Location: [place] [address] Electronically authenticated by: [id number] Y Date: 03/14/2025 19:17
--- NOTE | 2025-03-14 19:00 | ECG_ITS ---
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
--- NOTE | 2025-03-14 19:09 | ED.GENADUL1 ---
HPI HPI - General Adult General Chief complaint: Abdominal Pain Stated complaint: Abdominal Pain Time Seen by Provider: 03/14/25 18:42 Source: patient Mode of arrival: walk-in Limitations: no limitations History of Present Illness Location: Reports chest and abdomen Quality: Reports constant Exacerbating factors: Reports movement (Including ambulation) Associated symptoms: Reports nausea/vomiting Treatments prior to arrival: Reports NSAID and other (tylenol) Related Data Home Medications ?Medication ?Instructions ?Recorded ?Confirmed pantoprazole 40 mg tablet,delayed 40 mg PO DAILY 12/15/23 03/14/25 release cholecalciferol (vitamin D3) 50 50 mcg PO DAILY 04/13/24 02/08/25 mcg (2,000 unit) capsule metoprolol succinate 50 mg 50 mg PO DAILY 04/13/24 02/08/25 tablet,extended release 24 hr sertraline 50 mg tablet 50 mg PO DAILY 04/13/24 03/14/25 acarbose 25 mg tablet 25 mg PO BID 12/18/24 03/14/25 aspirin 81 mg tablet,delayed 81 mg PO DAILY 12/18/24 03/14/25 release levetiracetam 750 mg tablet 1,000 mg PO Q12H 12/18/24 03/14/25 multivitamin with folic acid 400 1 tab PO DAILY 12/18/24 02/08/25 mcg tablet (Daily-Reena (with folic acid)) promethazine 25 mg tablet 25 mg PO Q6H PRN nausea and 12/18/24 02/08/25 vomiting lisinopril 40 mg tablet 40 mg PO DAILY 02/08/25 03/14/25 metoclopramide HCl 5 mg tablet 5 mg 02/08/25 sucralfate 100 mg/mL oral 03/14/25 suspension Previous Rx's ?Medication ?Instructions ?Recorded ondansetron 4 mg disintegrating 4 mg PO Q8H PRN nausea and 04/13/24 tablet vomiting 3 days #10 tabs pantoprazole 40 mg tablet,delayed 40 mg PO DAILY 4 weeks #28 tabs 03/14/25 release (Protonix) Allergies Allergy/AdvReac Type Severity Reaction Status Date / Time cyclobenzaprine (From Allergy Severe Anaphylaxis Verified 03/14/25 18:41 Flexeril) Penicillins Allergy Intermediate Hives Verified 03/14/25 18:41 Opioid HPI Opioid Management Most Recent Opioid Data: Last Pain Scale 10 03/14/25, 18:38 Last ED Pain Assessment 03/14/25, 20:15 Last ORT Total Score 0 11/27/23, 09:50 Last ORT Risk Category Low Risk 11/27/23, 09:50 Ur Phencyclidine Scrn, (NEGATIVE) Negative 12/18/24, 08:34 Review of Systems ROS Status of ROS 10 or more systems reviewed and unremarkable except as noted in history and below Cardiovascular Reports: chest pain and shortness of breath with exertion Respiratory Reports: shortness of breath Gastrointestinal Reports: abdominal pain, nausea and vomiting Genitourinary Denies: painful urination or blood in urine Musculoskeletal Denies: extremity swelling [facility] Medical History (Updated 03/14/25 @ 21:26 by EUN MCCARTY II) Partial obstruction of small intestine ?K56.600 - Partial intestinal obstruction, unspecified as to cause (ICD-10) Constipation ?K59.00 - Constipation, unspecified (ICD-10) Ileus ?K56.7 - Ileus, unspecified (ICD-10) Nausea and vomiting ?R11.2 - Nausea with vomiting, unspecified (ICD-10) GERD (gastroesophageal reflux disease) ?K21.9 - Gastro-esophageal reflux disease without esophagitis (ICD-10) Elevated troponin ?R77.8 - Other specified abnormalities of plasma proteins (ICD-10) Chronic upper abdominal pain ?R10.10 - Upper abdominal pain, unspecified (ICD-10) ?G89.29 - Other chronic pain (ICD-10) Epigastric abdominal pain ?R10.13 - Epigastric pain (ICD-10) Abdominal pain, chronic, generalized ?R10.84 - Generalized abdominal pain (ICD-10) ?G89.29 - Other chronic pain (ICD-10) Headache, migraine ?G43.909 - Migraine, unspecified, not intractable, without status migrainosus (ICD-10) Gastroparesis ?K31.84 - Gastroparesis (ICD-10) Mitral valve disorder ?I05.9 - Rheumatic mitral valve disease, unspecified (ICD-10) Surgical History 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 ?K95.89 - Other complications of other bariatric procedure (ICD-10) ?K22.4 - Dyskinesia of esophagus (ICD-10) History of hernia surgery ?Z98.890 - Other specified postprocedural states (ICD-10) ?Z87.19 - Personal history of other diseases of the digestive system (ICD-10) FH: cholecystectomy ?Z83.79 - Family history of other diseases of the digestive system (ICD-10) H/O: hysterectomy ?Z90.710 - Acquired absence of both cervix and uterus (ICD-10) Family History Father Family history of myocardial infarction Family history of cancer Grandmother Family history of diabetes mellitus Family history of stroke Sister Family history of hypertension Social History Within the past year, how often did you have a drink containing alcohol: never Within the past year, how many standard drinks containing alcohol did you have on a typical day: 1 or 2 Within the past year, how often did you have six or more drinks on one occasion: never Total score: 0 Score interpretation: A score less than 3 is consistent with normal alcohol consumption. 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 Known occupational exposures/hazards: No Highest level of school completed/degree received: high school graduate Do you want help with school or training: No Are you now , , , , never or living with a partner: In a typical week, how many times do you talk on the telephone with family, friends, or neighbors: 3 or more times per week How often do you get together with friends or relatives: 3 or more times per week How often do you attend hoahaoism or hoahaoism services: never Do you belong to any clubs or organizations such as hoahaoism groups unions, fraternal or athletic groups, or school groups: no Total score: 2 Score interpretation: A score of greater than or equal to 2 indicates the lowest level of social isolation. Little interest or pleasure in doing things: not at all Feeling down, depressed, or hopeless: not at all Feel stressed/tense/nervous/anxious/difficulty sleeping: not at all Due to disability, difficulty making decisions: No Do you think of yourself as: straight/heterosexual Gender Identity: female Exam Constitutional Vital Signs, click to edit/add: Last Vital Signs Temp 98.9 F 03/14/25 18:38 Pulse 62 03/14/25 19:32 Resp 20 03/14/25 19:32 BP 140/84 03/14/25 19:32 Pulse Ox 97 03/14/25 19:32 O2 Del Method Room Air 03/14/25 19:32 Documenting provider has reviewed patient's vital signs: yes Common normals: no apparent distress Exam limitations: altered mental status General appearance: cooperative Nutritional appearance: overweight; not cachectic Orientation/consciousness: Yes awake, Yes oriented to person, Yes oriented to place and Yes oriented to time HENMT Common normals: hearing grossly normal bilaterally, external ears normal, EACs normal and TMs normal bilaterally Mouth: moist mucous membranes not abnormal (dry oral mucosa) Chest Common normals: palpation of chest abnormal Chest: symmetrical chest wall rise and tenderness; no crepitus Respiratory Common normals: normal respiratory effort and clear to auscultation bilaterally Effort & inspection: able to speak in complete sentences Cardio Common normals: regular rate, regular rhythm, S1 normal heart sound and S2 normal heart sound GI Common normals: soft to palpation Inspection: no abdominal wall ecchymosis and no abdominal distension Palpation: soft and tender Details: LLQ and RLQ Common normals: no CVA tenderness Back & Pelvis Common normals: no CVA tenderness and thoracic and lumbar spine normal to inspection General back: tenderness (Diffuse low back tenderness.) Extremity Common normals: normal to inspection and full ROM Neuro Common normals: oriented x3 and moves all extremities Sensorium/orientation: awake, oriented to person, oriented to place and oriented to time Psych Common normals: mental status grossly normal and thought process normal Course Vital Signs Vital signs: Vital Signs Temperature 98.9 F 03/14/25 18:38 Pulse Rate 68 03/14/25 18:38 Respiratory Rate 18 03/14/25 18:38 Blood Pressure 137/89 03/14/25 18:38 Pulse Oximetry 97 03/14/25 18:38 Oxygen Delivery Method Room Air 03/14/25 18:38 Temperature 98.9 F 03/14/25 18:38 Pulse Rate 62 03/14/25 19:32 Respiratory Rate 20 03/14/25 19:32 Blood Pressure 140/84 03/14/25 19:32 Pulse Oximetry 97 03/14/25 19:32 Oxygen Delivery Method Room Air 03/14/25 19:32 Medical Decision Making MDM Narrative Medical decision making narrative: Patient states she was seen at [facility]'s ER 2 days ago. States they did not find any emergent issues but referred her to gastroenterology she has an EGD and a colonoscopy scheduled. Patient's troponin decreased 30-29 negative D-dimer patient had negative CT of chest 2 days ago upon records review. They do note small kidney lesion of indeterminate source. Will discharge patient with Zofran, clear liquid diet, Reglan follow-up with primary care return to if any symptoms worsen or new symptoms well. They have also placed her on Protonix. As well as Macrobid for UTI. Does have Zofran at home but does not have Protonix she thought they were going to prescribe it we will prescribe Protonix 40 mg 1 daily for 30 days. We discussed clinical diet follow-up with primary care as well as gastroenterology continue her metoclopramide. Discussed plan of care with patient and she is agreeable plan of care. Differential Diagnosis Differential Diagnosis: Acute on chronic abdominal pain hiatal hernia Medical Records Medical records narrative: Requesting [facility] medical records. 2109 hrs. patient treated for UTI. Lab Data Labs: Lab Results 03/14/25 03/14/25 Range/Units 19:15 20:03 WBC 7.9 (4.0-11.0) 10^3/uL RBC 4.10 L (4.20-5.40) 10^6/uL Hgb 12.1 (12.0-16.0) g/dL Hct 37.4 (36.0-48.0) % MCV 91.2 (81.0-99.0) fL MCH 29.5 (26.7-34.0) pg MCHC 32.4 (29.9-35.2) g/dL RDW 13.0 (11.0-15.0) % Plt Count 363 (150-450) 10^3/uL MPV 9.2 L (9.5-13.5) fL Neut % (Auto) 79.1 H (43.0-75.0) % Lymph % (Auto) 14.8 L (20.5-60.0) % [place] % (Auto) 4.2 (1.7-12.0) % Eos % (Auto) 1.3 (0.9-7.0) % Baso % (Auto) 0.3 (0.2-2.0) % Neut # (Auto) 6.2 (1.4-6.5) 10^3/uL Lymph # (Auto) 1.2 (1.2-3.8) 10^3/uL [place] # (Auto) 0.3 (0.3-0.8) 10^3/uL Eos # (Auto) 0.1 (0.0-0.7) 10^3/uL Baso # (Auto) 0.0 (0.0-0.1) 10^3/uL Abs Immat Gran (auto) 0.02 (0.00-0.03) 10^3/uL Imm/Tot Granulo (auto) 0.3 (0.0-0.5) % D-Dimer 0.25 (<=0.59) mg/L FEU Sodium 147 H (136-145) mmol/L Potassium 4.5 (3.5-5.1) mmol/L Chloride 110 H (98-107) mmol/L Carbon Dioxide 27.7 (21.0-32.0) mmol/L Anion Gap 13.8 BUN 29.0 H (7.0-18.0) mg/dL Creatinine 0.67 (0.55-1.02) mg/dL Est GFR ( Amer) >60 (>=60 mL/min/1.73m^2) Est GFR (Non-Af Amer) >60 (>=60 mL/min/1.73m^2) BUN/Creatinine Ratio 43.3 Glucose 119 H (74-106) mg/dL Calcium 9.6 (8.5-10.1) mg/dL Magnesium 2.1 (1.8-2.4) mg/dL Total Bilirubin 0.2 (0.2-1.0) mg/dL AST 15 (15-37) U/L ALT 23 (14-59) U/L Alkaline Phosphatase 147 H (46-116) U/L Troponin I High Sens 31.2 29.0 (4.0-51.3) pg/mL Total Protein 7.0 (6.4-8.2) g/dL Albumin 3.6 (3.4-5.0) g/dL Globulin 3.4 g/dL Albumin/Globulin Ratio 1.1 Lipase 57.0 (16.0-77.0) U/L ECG Data Attestation: ?I have reviewed the pertinent ECG results. Interpretation: EKG normal sinus rhythm rate 63 MS interval 154 ms QRS 86 ms QTc 442 ms. Discharge Plan Discharge Chief Complaint: Abdominal Pain Clinical Impression: Abdominal pain, Kidney lesion, Constipation, Atypical chest pain, Nausea & vomiting Patient Disposition: Home, Self-Care Mode of Transportation: Private Vehicle Prescriptions / Home Meds: New pantoprazole [Protonix] 40 mg tablet,delayed release (DR/EC) 40 mg PO DAILY 28 Days Qty: 28 0RF No Action pantoprazole 40 mg tablet,delayed release (DR/EC) 40 mg PO DAILY metoprolol succinate 50 mg tablet extended release 24 hr 50 mg PO DAILY sertraline 50 mg tablet 50 mg PO DAILY cholecalciferol (vitamin D3) 50 mcg (2,000 unit) capsule 50 mcg PO DAILY ondansetron 4 mg tablet,disintegrating 4 mg PO Q8H PRN (Reason: nausea and vomiting) 3 Days Qty: 10 0RF aspirin 81 mg tablet,delayed release (DR/EC) 81 mg PO DAILY promethazine 25 mg tablet 25 mg PO Q6H PRN (Reason: nausea and vomiting) levetiracetam 750 mg tablet 1,000 mg PO Q12H acarbose 25 mg tablet 25 mg PO BID multivitamin with folic acid [Daily-Reena (with folic acid)] 400 mcg tablet 1 tab PO DAILY sucralfate 100 mg/mL suspension lisinopril 40 mg tablet 40 mg PO DAILY metoclopramide HCl 5 mg tablet 5 mg Print Language: Australian Instructions: Chest Pain (ED), Constipation (DC), Acute Nausea and Vomiting (DC), Abdominal Pain (ED) Additional Instructions: Diet for 24 hours including water, Jell-O, popsicles, clear broth, Gatorade. Continue MiraLAX as directed. Continue taking Protonix 40 mg once daily. Continue metoclopramide as prescribed. Follow-up with primary care and gastroenterology. Referrals: Nikki Ayoub PA [Physician] - 1 week Discharge Date/Time: 03/14/25 21:56
[2025-03-14 19:20] LABS: Hematocrit 37.4 % (36.0-48.0); Hemoglobin 12.1 g/dL (12.0-16.0); Immature Granulocytes Abs Auto 0.02 10^3/uL (0.00-0.03); Immature Granulocytes Pct Auto 0.3 % (0.0-0.5); Lymphocytes Absolute Auto 1.2 10^3/uL (1.2-3.8); Mean Corpuscular HGB Conc 32.4 g/dL (29.9-35.2); Mean Corpuscular Hemoglobin 29.5 pg (26.7-34.0); Mean Corpuscular Volume 91.2 fL (81.0-99.0); Platelet Count 363 10^3/uL (150-450); Red Blood Count 4.10 10^6/uL (4.20-5.40); White Blood Count 7.9 10^3/uL (4.0-11.0)
[2025-03-14 19:32] VITALS: BP 140/84; PULSE 62; O2SAT 97
[2025-03-14] MEDS: KETOROLAC TROMETHAMINE 30 MG/ML VIAL IVP (19:35)
[2025-03-14] MEDS: 0.9 % SODIUM CHLORIDE 500 ML IV (19:35)
[2025-03-14 19:41] LABS: Alanine Aminotransferase 23 U/L (14-59); Albumin Globulin Ratio 1.1; Albumin Level 3.6 g/dL (3.4-5.0); Alkaline Phosphatase 147 U/L (46-116); Anion Gap 13.8; Aspartate Amino Transferase 15 U/L (15-37); Blood Urea Nitrogen 29.0 mg/dL (7.0-18.0); Calcium 9.6 mg/dL (8.5-10.1); Carbon Dioxide 27.7 mmol/L (21.0-32.0); Chloride 110 mmol/L (98-107); Estimated GFR (African America >60 (>=60 mL/min/1.73m^2); Estimated GFR (Non-African Ame >60 (>=60 mL/min/1.73m^2); Globulin 3.4 g/dL; Glucose 119 mg/dL (74-106); Lipase 57.0 U/L (16.0-77.0); Magnesium 2.1 mg/dL (1.8-2.4); Potassium 4.5 mmol/L (3.5-5.1); Sodium 147 mmol/L (136-145); Total Protein 7.0 g/dL (6.4-8.2)
--- NOTE | 2025-03-14 19:51 | CT_ITS ---
The [address] [address] Patient Name: CONSTANTINO CARDOSO MRN: [id number] date: 1970 Sex: F Assigned Patient Location: ER Current Patient Location: ED.MAIN Accession/Order Number: [id number] Exam Date: 03/14/2025 20:59 Report Date: 03/14/2025 21:06 At the request of: VERONICA HAQ Procedure: CT abdomen pelvis w con CT ABDOMEN AND PELVIS WITH INTRAVENOUS CONTRAST: CLINICAL HISTORY: abd pain and hx hiatal hernia and sbo COMPARISON: 12/18/2024 and 625 TECHNIQUE: Spiral images were obtained through the abdomen and pelvis following the administration of intravenous contrast. This CT exam was performed using one or more following dose reduction techniques: Automated exposure control, adjustment of the mA and/or kV according to patient size, or use of iterative reconstruction technique. FINDINGS: Lung Bases: [Lung bases are clear.] Organs:Ovoid lesion right kidney 2.5 cm in size noted this measures 40 HU and is indeterminate.[Otherwise the liver, spleen, pancreas, kidneys, unremarkable. Gallbladder absent. GI: Hiatal hernia with adjacent postsurgical changes. Llrd-ia-zfxgiuds retained stool within colon. No bowel obstruction. No CT findings acute appendicitis.[ Pelvis:[Bladder is grossly unremarkable. Uterus absent. No adnexal mass.] Peritoneum/Retroperitoneum:No free air or free fluid. Aorta normal caliber. No adenopathy.[ Abd wall/Bones:Mild scattered degenerative change. Facet arthropathy.[ CT/CT abdomen pelvis w con IMPRESSION: Negative acute inflammatory process or bowel obstruction. 2.5 cm ovoid lesion involving the right kidney, indeterminate based on current examination. Consider dedicated renal mass protocol CT or MRI Impression dictated by: Surendra Casey M.D. 03/14/2025 9:06 PM Dictation Location: [place] [address] Electronically authenticated by: [id number] Y Date: 03/14/2025 21:06
--- NOTE | 2025-03-14 19:52 | CT_ITS ---
The [address] [address] Patient Name: CONSTANTINO CARDOSO MRN: [id number] date: 1970 Sex: F Assigned Patient Location: ER Current Patient Location: ER Accession/Order Number: [id number] Exam Date: 03/14/2025 20:29 Report Date: 03/14/2025 20:32 At the request of: VERONICA HAQ Procedure: CT chest w con CT CHEST WITH INTRAVENOUS CONTRAST: CLINICAL HISTORY: chest pain and hx hiatal hernia COMPARISON: 12/18/2024 TECHNIQUE: Spiral images were obtained through the chest following intravenous administration of IV contrast. This CT exam was performed using one or more following dose reduction techniques: Automated exposure control, adjustment of the mA and/or kV according to patient size, or use of iterative reconstruction technique. FINDINGS: Mediastinum:Mildly prominent cardiac size. No significant pericardial effusion. Aorta normal caliber no suspicious mediastinal or hilar adenopathy. Small hiatal hernia noted. Lungs:No focal opacity, effusion or pneumothorax. No suspicious nodularity. Abd:There are postsurgical changes adjacent hiatal hernia. Soft tissues/Bones: Accentuation normal thoracic kyphosis.. Mild degenerative change. CT/CT chest w con IMPRESSION: Negative acute pleural-parenchymal disease. Small hiatal hernia with adjacent postsurgical changes. Impression dictated by: Surendra Casey M.D. 03/14/2025 8:32 PM Dictation Location: [place] [address] Electronically authenticated by: [id number] Y Date: 03/14/2025 20:32
== END 2025-03-14 21:56 | disposition home or self-care (01) ==
PROVIDERS: Physician Assistant; Emergency Provider Emergency Medicine; PCP Nurse Practitioner Family
DX: R10.84 Generalized abdominal pain (principal); N28.89 Other specified disorders of kidney and ureter; K59.00 Constipation, unspecified; R07.89 Other chest pain; R11.2 Nausea with vomiting, unspecified
CPT/HCPCS: 36415; 71045; 71260; 74177; 80053; 83690; 83735; 84484; 85025; 85378; 93005; 96361; 96374; 96375; 99285; J1885; J2405; Q9967

== ENCOUNTER 2025-03-19 08:40 | Outpatient (OUT) | payer BC, SELFPAY ==
--- OUTSIDE RECORDS SUMMARY | 2025-02-07 06:30 | XMS_ITS ---
Author Organization [facility] in [place] Address [address] [place] [address] Care Team Providers Care Veterinary Surgeon Name Role Phone Judi Tapia Primary Care Provider Allergies Allergen (clinical drug ingredient) Drug/Non Drug [...] bp at work, patient works at the [employer], patientis co a left bleeding ear infection [...] Problem Status W/U Status Risk Notes Problem HTN (hypertensio n) (I10) Active confirmed Vital Signs Weight 187.8 lbs 02/07/2025 Height 67 in 02/07/2025 Blood pressure systolic 158 mm Hg 02/08/20 25 Blood pressure diastolic 90 mm Hg 025 BMI 29.41 kg/m2 02/07/2025 Encounters Encounter Location Date Provider Diagnosis [facility] [address] [place] [address] 02/07/2025 Judi Tapia UTI (urinary tract infection) [...] * Oly CARDOSODOB:[birth year] (54 yo F)Acc No.[id number]:02/07/2025 Progress Note Patient: Oly JONES Provider: Cesia Tapia ([facility]), REFRACTORY REPAIRER :1970 A ge:54 Y S ex:Female Date:02/07/2025 Address:[address] [place] [address], [id number] Check In:10:08 AM ESTCheck O ut:10:45 AM EST Subjective: * Chief Complaints: * 1 . sent home from work BP high. 2. 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 Modified On:03/31/2023 Status:confirmed K57.92 Diverticulitis Modified On:02/07/2018U Status:confirmed K30 Functional dyspepsia Modified On:04/08/2023U Status:confirmed K56.7 Ileus Modified On:10/18/2023U Status:confirmed K56.609 SBO (small bowel obs truction) Modified On:12/05/2023U Status:confirmed F32.9 Depression Modified On:12/30/2023U Status:confirmed K21.9 Gastro-esophageal re flux Modified On:01/03/2024U Status:confirmed K31.84 Gastroparesis Modified On:01/03/2024U Status:confirmed E55.9 Vitamin D deficiency Modified On:01/04/2024U Status:confirmed M51.36 Lumbar degenerative disc disease Modified On:01/05/2024U Status:confirmed R00.0 Tachycardia Modified On:01/20/2024U Status:confirmed K21.9 GERD (gastroesophage al reflux disease) Modified On:01/24/2024U Status:confirmed E44.0 Moderate protein mal nutrition Modified On:01/24/2024U Status:confirmed D70.9 Neutropenia Modified On:01/24/2024U Status:confirmed D50.9 Anemia, iron deficie ncy Modified On:01/24/2024W/U Status:confirmed E83.42 Hypomagnesemia Modified On:01/24/2024/U Status:confirmed E16.2 [...] obstruction 11/26, Bowel Obstruction- [facility] sent to [facility] 08/2024. * Family History: F ather: , [...] WO MICRO * Preventive Medicine: Screenings/Counseling: B PR ACTION PLAN Above Normal BMI Follow-up D ietary management education, guidance, and counseling * Follow Up: p rn,2 Weeks * * Electronically signed by Edelmira Tapia , BICYCLE DESIGNER, TIE TAPE MACHINE OPERATOR.REFRACTORY [id number] on 02/08/2025 at 01:22 PM EDT Sign off status: Completed Visit Status: C HK (Check Out) true * Provider: Cesia Tapia ([facility]), REFRACTORY REPAIRER Date: 0 02/07/2025 Generated for Printi ng/Faxing/eTransmitting on: 0 03/19/2025 08:45 AM EDT History and Physical Notes * HPI [...]
--- OUTSIDE RECORDS SUMMARY | 2025-03-12 19:37 | XMS_ITS | Continuity of Care Document ---
Author Organization [facility] Address [address] [place] [address] Phone Care Team Providers Care Residential Housekeeper Name Role Phone Nicanor Perez MD Attending Provider Kailey Mosley APRN Emergency Provider [phone] Judi TapiaC Primary Care Provider Care Teams Patient Care Team Team Status: Active Member Role Status Dates DONI Stovall Primary Care Provider Active Visit Care Team Team Status: Inactive Member Role Status Dates Nicanor Perez MD Attending Provider Active Start : December 18, 2024 End: December 18, 2024 Visit Care Team Team Status: Inactive Member Role Status Dates Kailey Mosley APRN Emergency Provider Active Start: March 12, 2025 End: March 12, 2025 DONI Stovall Primary Care Provider Active Start: March 12, 2025 End: March 12, 2025 Chief Complaint and Reason for Visit Chief Complaint Admit Date Unknown December 18, 2024 8:3 4am cp/back pain March 12, 2025 8:04p m Allergies, Adverse Reactions, Alerts Allergen Type Severity Reaction Last Updated Verified Status cyclobenzaprine Allergy Unknown Swelling of Lip/Tongue/Throat, throat swelling March 12, 2025 8:11pm Yes Active penicillamine Allergy Unknown rash March 12, 025 8:11pm Yes Active Penicillins Allergy Unknown Rash March 12 8:11pm Yes Active Social History Smoking Status Status Start Date End Date Date of Observa tion Ex-smoker (finding) March 8:22pm Observation Status Observation Response Date of Response Legal Sex Female (finding) Sex Assigned At Female 1970 Family History Relationship Condition Age at Onset Recorded Date/T daniel father Myocardial infarction Unknown Malignant neoplasm Unknown Heart disease Unknown sister Seizure Unknown Hypertension Unknown family member Unknown Problems Active Problems Medical Problem Onset Date Status Comments UTI (urinary tract infection) Unknown Active Dysphagia Unknown Active Epigastric pain Unknown Active Small bowel obstruction Unknown Active Abdominal adhesions Unknown Active Hernia, hiatal Unknown Active Inactive/Resolved Problems Medical Problem Onset Date Status Comments UTI (urinary tract infection) Unknown Resolved Problem List clean-up per request of Phys. EHR Cmte Gastroparesis Unknown Resolved Problem List c lean-up per request of Phys. EHR Cmte Strain of lumbar region Unknown Resolved Prob deni List clean-up per request of Phys. EHR Cmte Dysphagia Unknown Resolved Problem List cl barbara-up per request of Phys. EHR Cmte History of repair of hiatal hernia Unknown Resolv ed Problem List clean-up per request of Phys. EHR Cmte Elevated troponin Unknown Resolved Problem Li st clean-up per request of Phys. EHR Cmte Epigastric abdominal pain Unknown Resolved Pr oblem List clean-up per request of Phys. EHR Cmte Epigastric abdominal pain Unknown Resolved Pr oblem List clean-up per request of Phys. EHR Cmte Abdominal pain Unknown Resolved Problem List clean-up per request of Phys. EHR Cmte Nausea Unknown Resolved Problem List cl barbara-up per request of Phys. EHR Cmte Hiatal hernia Unknown Resolved Problem List c lean-up per request of Phys. EHR Cmte Obesity Unknown Resolved Problem List cl barbara-up per request of Phys. EHR Cmte Medications Medication Status Dose Units Route Directions Qty Days St art Date Stop Date End Date Instructions Adherence Pantoprazol e 40 mg tablet,lianna yed release (DR/EC) Active 40 MG PO Daily 56 56 Septem 2023 4:20pm Unknown Pantoprazol e 40 mg Tablet,Lianna yed Release (Dr/Ec) Discont inued 40 MG PO Twice daily November 12, 2018 1:00am February 25, 2019 6:46p m Losartan 100 mg Tablet Discont inued 100 MG PO Daily November 12, 2018 1:00am February 15, 2023 9:46a m Budesonide- Formoterol (Symbicort) 160-4.5 mcg/actuati on Hfa Aerosol Inhaler Discont inued 2 PUFF INHALA TION Twice daily November 12, 2018 1:00am February 25, 2019 6:46p m Hydrocodone -Acetaminop hen ([place]) 5-325 mg tablet Discont inued 1 TAB PO EVERY 4-6 HOURS as needed for pain 10 3 November 12, 2018 January 30, 2019 9:43a m Doxycycline Hyclate 100 mg tablet Discont inued 100 MG PO Twice daily 20 10 November 12, 2018 1:00am January 30, 2019 9:43a m Hydrocodone -Acetaminop hen ([place]) 5-325 mg Tablet Discont inued 1 TAB PO Q6H as needed for Pain Octobe r 2018 12:00a m February 15, 2023 9:46a m Naproxen Sodium (Aleve) 220 mg Capsule Discont inued 220 MG PO Twice daily as needed for Pain Octobe r 2018 12:00a m February 15, 2023 9:46a m Nitrofurant oin Monohyd/M-C ryst (Macrobid) 100 mg capsule Discont inued 100 MG PO Twice daily 14 7 Octobe r 2018 12:00a m February 15, 2023 9:46a m must administer with a meal/food Oxcarbazepi ne 150 mg Tablet Discont inued 150 MG PO Every morning February 15, 2023 12:00a m Augus t 2023 8:29a m take 1 tablet po in am and 2 tablet po in the evening Polyethylen e Glycol 3350 (Miralax) 17 gram Powder In Packet Discont inued 17 GM PO Daily February 15, 2023 12:00a m Larry mbnoemi 2023 8:09a m Omeprazole 40 mg Capsule,Del ayed Release(Dr/ Ec) Discont inued 40 MG PO Daily February 15, 2023 12:00a m March 31, 2023 5:11p m Ondansetron 4 mg tablet,disi ntegrating Discont inued 4 MG PO Daily February 15, 2023 12:00a m March 23, 2023 6:41a m Dicyclomine 10 mg Capsule Discont inued 10 MG PO Four times daily February 15, 2023 12:00a m Augus t 2023 9:31a m Dicyclomine 10 mg capsule Discont inued 10 MG PO Three times daily February 15, 2023 12:00a m March 23, 2023 6:41a m Sucralfate (Carafate) 1 gram tablet Discont inued 1 GM PO Q6H 56 February 15, 2023 12:00a m Augus t 2023 9:31a m Pantoprazol e (Protonix) 40 mg tablet,lianna yed release (DR/EC) Discont inued 40 MG PO Daily 14 February 15, 2023 12:00a m March 30, 2023 11:06 am Oxcarbazepi ne 300 mg Tablet Discont inued 300 MG PO Daily at bedtime March 23, 2023 12:00a m Augus t 2023 8:29a m Naproxen 500 mg tablet Active 500 MG PO Twice daily March 23, 2023 12:00a m Unknown Metoclopram luigi Hcl (Reglan) 10 mg Tablet Discont inued 10 MG PO Q6H as needed for Abdominal Pain March 23, 2023 12:00a m Augus t 2023 8:28a m Nitrofurant oin Monohyd/M-C ryst (Macrobid) 100 mg capsule Active 100 MG PO Twice daily 14 March 12, 2025 12:00a m must administer with a meal/food Unknown Pantoprazol e (Protonix) 40 mg tablet,lianna yed release (DR/EC) Active 40 MG PO Daily March 12, 2025 12:00a m Unknown Omeprazole 20 mg Tablet,Lianna yed Release (Dr/Ec) Discont inued 20 MG PO Daily March 24, 2018 12:00a m Augus t 2017 11:33 am Promethazin e 25 mg Tablet Discont inued 25 MG PO Q6H as needed for Nausea March 24, 2018 12:00a m November 12, 2018 4:42p m Famotidine (Pepcid) 20 mg tablet Discont inued 20 MG PO Twice daily March 28, 2018 12:00a m Larry dubose 2017 12:00 am Larry dubose 2017 12:01 am Sucralfate (Carafate) 1 gram Tablet Discont inued 1 GM PO Q6H April 05, 2018 12:00a m u 2018 8:47p m Pantoprazol e (Protonix) 40 mg Tablet,Lianna yed Release (Dr/Ec) Discont inued 40 MG PO Daily April 05, 2018 12:00a m Enidus t 2017 11:34 am Pantoprazol e (Protonix) 40 mg Tablet,Lianna yed Release (Dr/Ec) Discont inued 40 MG PO Twice daily 60 April 13, 2018 11:33a m November 12, 2018 4:42p m Prednisone 20 mg tablet Discont inued 40 MG PO Every morning 10 2018 1:00am November 12, 2018 4:42p m administer with food or milk Meclizine 25 mg Tablet Discont inued 25 MG PO Three times daily as needed for Vertigo 2018 1:00am November 12, 2018 4:42p m Albuterol Sulfate 90 mcg/actuati on HFA aerosol inhaler Discont inued 2 INH INHALA TION EVERY 4-6 HOURS as needed for shortness of breath or wheezing 2018 1:00am November 12, 2018 4:42p m administer with spacer Meloxicam 15 mg tablet Discont inued 15 MG PO Daily January 30, 2019 12:00a m February 25, 2019 6:46p m Triamterene -Hydrochlor othiazid 37.5-25 mg capsule Discont inued 1 TAB PO Daily January 30, 2019 12:00a m February 15, 2023 9:47a m Ibuprofen 800 mg Tablet Discont inued 800 MG PO Three times daily as needed for Pain February 09, 2019 12:00a m February 27, 2019 3:49p m Dexlansopra zole 60 mg capsule,bip hase delayed releas Discont inued 60 MG PO Daily February 25, 2019 12:00a m Octob er 2018 1:42p m Sucralfate (Carafate) 1 gram tablet Discont inued 1 GM PO before meals and at bedtime 112 February 27, 2019 12:00a m Octob er 2018 1:42p m Tramadol 50 mg tablet Discont inued 50 MG PO EVERY 4-6 HOURS as needed for pain 20 7 February 27, 2019 12:00a m Octob er 2018 1:45p m Famotidine (Pepcid) 20 mg tablet Discont inued 20 MG PO Twice daily 60 30 February 27, 2019 12:00a m Octob er 2018 1:42p m Promethazin e 25 mg tablet Discont inued 25 MG PO EVERY 4-6 HOURS as needed for nausea and vomiting 10 2022 1:00am February 15, 2023 9:46a m Pantoprazol e 40 mg Tablet,Lianna yed Release (Dr/Ec) Discont inued 40 MG PO Daily March 30, 2023 12:00a m Augus t 2023 9:31a m Pyridostigm ine [place] 60 mg Tablet Discont inued 60 MG PO Twice daily 60 March 31, 2023 12:00a m Augus t 2023 9:31a m Lisinopril 10 mg tablet Active 10 MG PO Daily May 01, 2024 12:00a m Unknown Cholecalcif sha (Vitamin D3) 50 mcg (2,000 unit) capsule Active 50 MCG PO Daily May 01, 2024 12:00a m Unknown Sertraline 50 mg tablet Active 50 MG PO Daily May 01, 2024 12:00a m Unknown Metoprolol Succinate 50 mg tablet extended release 24 hr Active 50 MG PO Daily May 01, 2024 12:00a m Unknown Hyoscyamine Sulfate 0.125 mg tablet Active 0.125 MG PO Daily May 01, 2024 12:00a m Unknown Pantoprazol e 40 mg tablet,lianna yed release (DR/EC) Discont inued 40 MG PO Daily 56 56 Septem 2023 12:00a m Septe mber 2023 4:20p m vitamin d Discont inued PO April 26, 2024 12:00a m Augus t 2023 9:30a m Procedures Procedure Date Performed Status Urine Culture December 18, 2024 completed XR chest 1V portable March 12, 2025 8:17pm compl eted CT angio chest PE protocol March 12, 2025 9:36pm completed CT abdomen pelvis w con March 12, 2025 9:36pm co mpleted Urine Culture March 12, 2025 active Relevant Diagnostic Tests and/or Laboratory Data Laboratory Results Test Collection Date/Time Result Date/Time Result Interpretation Reference Range Result Comment Performing Site Correcte d White Blood Count March 12, 2025 8:17pm March 12, 2025 8:40pm 6.7 10*3/uL 3.8-11.6 [facility] [id number] [address] [facility] [address] Uncorrec jun WBC Count March 12, 2025 8:17pm March 12, 2025 8:40pm 6.7 10*3/uL 3.8-11.6 [facility] [id number] [address] [facility] [address] Red Blood Count March 12, 2025 8:17pm March 12, 2025 8:40pm 4.14 10*6/uL 3.60-5.00 [facility] [id number] [address] [facility] [address] Hemoglob in March 12, 2025 8:17pm March 12, 2025 8:40pm 12.2 g/dL 11.8-15.4 [facility] [id number] [address] [facility] [address] Hematocr it March 12, 2025 8:17pm March 12, 2025 8:40pm 36.5 % 34.0-46.4 [facility] [id number] [address] [facility] [address] Mean Corpuscu lar Volume March 12, 2025 8:17pm March 12, 2025 8:40pm 88.3 fL 80-100 [facility] [id number] [address] [facility] [address] Mean Corpuscu lar Hemoglob in March 12, 2025 8:17pm March 12, 2025 8:40pm 29.5 pg 24.7-34.3 [facility] [id number] [address] [facility] [address] Mean Corpuscu lar Hemoglob in Concent March 12, 2025 8:17pm March 12, 2025 8:40pm 33.4 g/dL 32.0-35.0 [facility] [id number] [address] [facility] [address] Red Cell Distribu tion Width March 12, 2025 8:17pm March 12, 2025 8:40pm 14.4 % 11.9-15.3 [facility] [id number] [address] [facility] [address] Platelet Count March 12, 2025 8:17pm March 12, 2025 8:40pm 379 10*3/uL 150-450 [facility] [id number] [address] [facility] [address] Mean Platelet Volume March 12, 2025 8:17pm March 12, 2025 8:40pm 7.3 fL 6.3-10.7 [facility] [id number] [address] [facility] [address] Monocyte Distribu tion Width March 12, 2025 8:17pm March 12, 2025 8:40pm 17.34 % 0.00-20.00 [facility] [id number] [address] [facility] [address] Neutroph ils (%) (Auto) March 12, 2025 8:17pm March 12, 2025 8:40pm 59.5 % . [facility] [id number] [address] [facility] [address] Lymphocy robert (%) (Auto) March 12, 2025 8:17pm March 12, 2025 8:40pm 28.3 % . [facility] [id number] [address] [facility] [address] Monocyte s (%) (Auto) March 12, 2025 8:17pm March 12, 2025 8:40pm 7.8 % . [facility] [id number] [address] [facility] [address]59 Eosinoph ils (%) (Auto) March 12, 2025 8:17pm March 12, 2025 8:40pm 3.7 % . [facility] [id number] [address] [facility] [address]13 Basophil s (%) (Auto) March 12, 2025 8:17pm March 12, 2025 8:40pm 0.7 % . [facility] [id number] [address] [facility] [address] Nucleate d RBC Relative Count (auto) March 12, 2025 8:17pm March 12, 2025 8:40pm 0.1 /100{WBC} 0-0.5 [facility] [id number] [address] [place], [place] [address] Neutroph ils # (Auto) March 12, 2025 8:17pm March 12, 2025 8:40pm 4.0 10*3/uL 1.8-7.7 [facility] [id number] [address] [place] [address] Lymphocy robert # (Auto) March 12, 2025 8:17pm March 12, 2025 8:40pm 1.9 10*3/uL 1.00-4.8 [facility] [id number] [address] [place] [address] Monocyte s # (Auto) March 12, 2025 8:17pm March 12, 2025 8:40pm 0.5 10*3/uL 0.0-0.8 [facility] [id number] [address] [place], [place] [address] Eosinoph ils # (Auto) March 12, 2025 8:17pm March 12, 2025 8:40pm 0.2 10*3/uL 0.0-0.45 [facility] [id number] [address] [place] [address] Basophil s # (Auto) March 12, 2025 8:17pm March 12, 2025 8:40pm 0.0 10*3/uL 0.0-0.2 [facility] [id number] [address] [place] [address] Prothrom bin Time March 12, 2025 8:17pm March 12, 2025 9:11pm 11.7 s 9.0-12.9 A hematocrit value greater than 55% may lead to inaccurate results in coagulation testing. Patients having hematocrit values >55% require a special collection tube for coagulation studies. Please contact the laboratory at for redraw instruction s. [facility] [id number] [address] [place], [place] [address] Prothrom b Time Internat ional Ratio March 12, 2025 8:17pm March 12, 2025 9:11pm 1.0 INR Therapeutic Range A) Pre- and Peroperativ e OAT started two weeks before surgery. NOT HIP SURGERY: 1.5 - 2.5 HIP SURGERY: 2 - 3B) Primary and secondary prevention of venous THROMBOSIS: 2 - 3C) Active venous thrombosis, pulmonary embolismand prevention of recurrent venous thrombosis: 2 - 3D) Prevention of arterial thromboembo lismincludi ng patients with mechanical heart valves: 3 - 4.5 [facility] [id number] [address] [facility] [address] Activate d Partial Thrombop last Time March 12, 2025 8:17pm March 12, 2025 9:11pm 34.7 s 25.1-36.5 A hematocrit value greater than 55% may lead to inaccurate results in coagulation testing. Patients having hematocrit values >55% require a special collection tube for coagulation studies. Please contact the laboratory at for redraw instruction s. [facility] [id number] [address] [facility] [address] Urine Color March 12, 2025 8:42pm March 12, 2025 9:07pm Light-yel low Yellow [facility] [id number] [address] [facility] [address] Urine Appearan ce March 12, 2025 8:42pm March 12, 2025 9:07pm Clear Clear [facility] [id number] [address] [place] [address] Urine Specific High View March 12, 2025 8:42pm March 12, 2025 9:07pm 1.032 Above high normal 1.001-1.03 0 [facility] [id number] [address] [facility] [address] Urine pH March 12, 2025 8:42pm March 12, 2025 9:07pm 5.5 5.0-9.0 [facility] [id number] [address] [facility] [address] Urine Leukocyt e Esterase March 12, 2025 8:42pm March 12, 2025 9:07pm 3+ Above high normal Negative [facility] [id number] [address] [place] [address] Urine Nitrite March 12, 2025 8:42pm March 12, 2025 9:07pm Negative Negative [facility] [id number] [address] [place] [address] Urine Protein March 12, 2025 8:42pm March 12, 2025 9:07pm Negative mg/dL Negative [facility] [id number] [address] [place] [address] Urine Glucose (UA) March 12, 2025 8:42pm March 12, 2025 9:07pm Normal mg/dL Normal [facility] [id number] [address] [facility] [address] Urine Ketones March 12, 2025 8:42pm March 12, 2025 9:07pm Negative Negative [facility] [id number] [address] [facility] [address] Urine Urobilin ogen March 12, 2025 8:42pm March 12, 2025 9:07pm Normal mg/dL Normal [facility] [id number] [address] [facility] [address] Urine Bilirubi n March 12, 2025 8:42pm March 12, 2025 9:07pm Negative Negative [facility] [id number] [address] [facility] 1957[address] Urine Occult Blood March 12, 2025 8:42pm March 12, 2025 9:07pm Negative Negative [facility] [id number] [address] [facility] [address] Urine RBC March 12, 2025 8:42pm March 12, 2025 9:25pm 3-4 [HPF] 0-4 [facility] [id number] [address] [facility] [address] Urine WBC March 12, 2025 8:42pm March 12, 2025 9:25pm 5-9 [HPF] Above high normal 0-4 [facility] [id number] [address] [facility] [address] Urine Squamous Epitheli al Cells March 12, 2025 8:42pm March 12, 2025 9:25pm 1-2 [HPF] 0-2 [facility] [id number] [address] [facility] [address] Urine Bacteria March 12, 2025 8:42pm March 12, 2025 9:25pm None seen [HPF] None Seen [facility] [id number] [address] [facility] [address] Urine Hyaline Casts March 12, 2025 8:42pm March 12, 2025 9:25pm None [LPF] 0-8 [facility] [id number] [address] [facility] [address] Urine Mucus March 12, 2025 8:42pm March 12, 2025 9:25pm Rare [LPF] [facility] [id number] [address] [facility] [address] Glucose Level March 12, 2025 8:17pm March 12, 2025 9:05pm 77 mg/dL 70-100 ADA recommended reference rangeRandom Glucose Reference Range is dependent on time and content of last meal. Glucose of more than 200 mg/dL in a nonstressed , ambulatory subject supports the diagnosis of Diabetes Mellitus. [facility] [id number] [address] [facility] [address] Blood Urea Nitrogen March 12, 2025 8:17pm March 12, 2025 9:05pm 26 mg/dL Above high normal 7-25 [facility] [id number] [address] [facility] [address] Creatini ne March 12, 2025 8:17pm March 12, 2025 9:05pm 0.88 mg/dL 0.60-1.20 [facility] [id number] [address] [facility] [address] Estimate d GFR (CKD-EPI ) March 12, 2025 8:17pm March 12, 2025 9:05pm > 60.0 mL/Min [place] [facility] [id number] [address] [facility] [address] Sodium Level March 12, 2025 8:17pm March 12, 2025 9:05pm 140 mmol/L 136-145 [facility] [id number] [address] [place] [address] Potassiu m Level March 12, 2025 8:17pm March 12, 2025 9:05pm 4.7 mmol/L 3.5-5.1 Hemolysis is present at a level that could interfere with the result.Cont act lab if redraw is required [facility] [id number] [address] [facility] [address] Chloride Level March 12, 2025 8:17pm March 12, 2025 9:05pm 108 mmol/L Above high normal 98-107 [facility] [id number] [address] [place] [id number] Carbon Dioxide Level March 12, 2025 8:17pm March 12, 2025 9:05pm 26.2 mmol/L 21.0-31.0 [facility] [id number] [address] [place] [id number] Anion Gap March 12, 2025 8:17pm March 12, 2025 9:05pm 10.5 mEq/L 6.0-15.0 [facility] [id number] [address] [facility] [address] Calcium Level March 12, 2025 8:17pm March 12, 2025 9:05pm 9.6 mg/dL 8.6-10.3 [facility] [id number] [address] [facility] [address] Total Protein March 12, 2025 8:17pm March 12, 2025 9:05pm 6.9 g/dL 6.4-8.9 [facility] [id number] [address] [facility] [address]183 Albumin March 12, 2025 8:17pm March 12, 2025 9:05pm 4.3 g/dL 3.5-5.7 [facility] [id number] [address] [facility] [address] Globulin March 12, 2025 8:17pm March 12, 2025 9:05pm 2.6 g/dL [facility] [id number] [address] [place], [place] [address] Albumin/ Globulin Ratio March 12, 2025 8:17pm March 12, 2025 9:05pm 1.7 [facility] [id number] [address] [place] [address]897 Total Bilirubi n March 12, 2025 8:17pm March 12, 2025 9:05pm 0.3 mg/dL 0.3-1.0 [facility] [id number] [address] [facility] [address] Direct Bilirubi n March 12, 2025 8:17pm March 12, 2025 9:05pm 0.00 mg/dL Below low normal 0.03-0.18 If the DBIL is less than 0.1, IBIL is not able to becalculate d. [facility] [id number] [address] [facility] [address] Indirect Bilirubi n March 12, 2025 8:17pm March 12, 2025 9:05pm 0.3 mg/dL [facility] [id number] [address] [place] [address]91 Aspartat e Amino Transf (AST/SGO T) March 12, 2025 8:17pm March 12, 2025 9:05pm 18 U/L 13-39 [facility] [id number] [address] [place] [address]11 Alanine Aminotra nsferase (ALT/SGP T) March 12, 2025 8:17pm March 12, 2025 9:05pm 14 U/L 7-52 [facility] [id number] [address] [place] [address]684 Alkaline Phosphat ase March 12, 2025 8:17pm March 12, 2025 9:05pm 135 U/L Above high normal 34-104 [facility] [id number] [address] [place] [address] 23186 Lipase March 12, 2025 8:17pm March 12, 2025 9:05pm 38.0 U/L 11.0-82.0 [facility] [id number] [address] [place] [address] 60778 Total Creatine Kinase March 12, 2025 8:17pm March 12, 2025 8:57pm 109 U/L 30-223 [facility] [id number] [address] [place], [place] [address] Troponin I High Sensitiv ity March 12, 2025 10:33pm March 12, 2025 11:17pm 6 ng/L 0-15 The Troponin units of report have been changed to meet the Chest Pain Accreditati on requirement , element EC5.M1l2. Troponin units are changed from pg/ml to ng/L. Also, the decimal is removed and results are in whole numbers. [facility] [id number] [address] [place] [address]29 B-Type Natriure tic Peptide March 12, 2025 8:17pm March 12, 2025 9:03pm 22.0 pg/mL 5-100 [facility] [id number] [address] [place] [address]77 Pharmacy Creatini ne Clearanc e (Chem March 12, 2025 8:17pm March 12, 2025 9:05pm 82.08 [facility] [id number] [address] [place] [address] 6[address]82 Microbiology Results Procedure Source Result Collection Date/Time Result Date/Time Result Comment Performing Site Urine Culture Urine Strep agalactiae - (group b) December 18, 2024 8:34am December 20, 2024 1:53pm [facility] [id number] [address] [place] [address]43 Diagnostic Imaging Reports Author Surendra Casey [facility] Report Date/Time March 12, 2025 8:55p m [facility] [place] [id number] XRay Report Signed Patient: Oly Mendiola MR#: [id number] : 1970 Acct:[id number] Age/Sex: 54 / F ADM Date: Loc: ER Room: Type: PRE ER Attending Dr: Copies to: Kailey Mosley APRN~ Ordering Provider: Kailey Mosley APRN Date of Service: 03/12/25 XR/XR chest 1V portable: Shortness of Breath/Dyspnea SINGLE VIEW CHEST CLINICAL HISTORY: Midsternal chest pain, pain with inspiration COMPARISON: CTA chest 03/26/2023 FINDINGS: Mildly prominent cardiomediastinal silhouette could be related to low lung volumes. XR/XR chest 1V portable IMPRESSION: NEGATIVE ACUTE PLEURAL-PARENCHYMAL DISEASE. Impression dictated by: Surendra Casey M.D. 03/12/2025 8:55 PM Dictation Location: [place] [address] Transcribed By: [facility] 03/12/252054 Dictated By: Surendra Casey MD 03/12/252053 Signed By: <Electronically signed by Surendra Casey MD in OV> 03/12/252054 Author Surendra Casey [facility] Report Date/Time March 12, 2025 10:12 pm [facility] [address] [address] [address] Scan Report Signed Patient: Oly Mendiola MR#: [id number] : 1970 Acct:[id number] Age/Sex: 54 / F ADM Date: Loc: ER Room: Type: REG ER Attending Dr: Copies to: Kailey Mosley APRN~ Ordering Provider: Kailey Mosley APRN Date of Service: 03/12/25 CT/CT angio chest PE protocol: pain/ sob CT ANGIOGRAM OF THE CHEST, PULMONARY EMBOLISM PROTOCOL: CLINICAL INFORMATION: Pain, short of breath Comparison 03/26/2023 TECHNIQUE: Following intravenous injection of contrast CT scans of the chest were obtained using pulmonary embolism protocol. Coronal and sagittal reconstructed images, as well as volume rendered CT pulmonary angiographic images were also submitted.The CT exam was performed using one or more of the following dose reduction techniques: Automated exposure control, adjustment of the MA and/or Kv according to patient size, or use of the iterative reconstruction technique. FINDINGS: Pulmonary Vasculature: Contrast bolus is adequate for evaluation of pulmonary embolism. Pulmonary trunk appears nondilated. No filling defects are identified to suggest pulmonary embolism. Mediastinum : Thoracic aorta is normal in caliber. Suboptimal timing of the contrast bolus evaluate for aortic dissection. Cardiomegaly. No pericardial effusion. No lymphadenopathy. Moderate retrocardiac hiatal hernia. Lungs: Dependent hypoventilatory changes and areas of subpleural thickening and scarring. No focal consolidation, pneumothorax or pleural effusion. Upper abdomen: No acute findings Soft tissue/bones: Soft tissues surrounding the chest wall demonstrate no acute findings. Osseous structures demonstrate degenerative change. CT/CT angio chest PE protocol IMPRESSION: NO CT EVIDENCE OF PULMONARY EMBOLISM OR ACUTE PLEURAL-PARENCHYMAL DISEASE. MODERATE SIZE HIATAL HERNIA. Impression dictated by: Surendra Casey M.D. 03/12/2025 10:12 PM Dictation Location: [place] [address] Transcribed By: [facility] 03/12/252211 Dictated By: Surendra Casey MD 03/12/252199 Signed By: <Electronically signed by Surendra Casey MD in OV> 03/12/252211 Author Surendra Casey [facility] Report Date/Time March 12, 2025 10:20 pm [facility] [place] [address] [place] [address] CT Scan Report Signed Patient: Oly Mendiola MR#: [id number] : 1970 Acct:[id number] Age/Sex: 54 / F ADM Date: 5 Loc: ER Room: Type: [facility] ER Attending Dr: Copies to: Kailey Mosley APRN~ Ordering Provider: Kailey Mosley APRN Date of Service: 03/12/25 CT/CT abdomen pelvis w con: pain CT ABDOMEN AND PELVIS WITH INTRAVENOUS CONTRAST: CLINICAL HISTORY: Midsternal chest pain with inspiration, rule out dissection COMPARISON: 03/23/2023 TECHNIQUE: Spiral images were obtained through the abdomen and pelvis followingthe administration of intravenous contrast. This CT exam was performed using one or more following dose reduction techniques: Automated exposure control, adjustment of the mA and/or kV according to patient size, or use of iterative reconstruction technique. FINDINGS: Lung Bases: [Hypoventilatory changes and subpleural scarring. Organs:Right parapelvic hypodensity noted involving the right kidney 2.1 x 1.6 cm size. Question internal septations noted. Otherwise kidneys measure size without hydronephrosis. Liver, spleen, adrenals and pancreas are unremarkable[gallbladder absent. GI: Suspected small hiatal hernia. Otherwise the stomach, small bowel unremarkable. No bowel obstruction. Moderate burden of stool involving the right colon. No bowel obstruction. Appendix not visualized. No CT findings acute appendicitis.[ Pelvis:[Bladder unremarkable. Uterus absent. No adnexal mass.] Peritoneum/Retroperitoneum:No free air or free fluid. Aorta unremarkable caliber. No bulky adenopathy.[ Abd wall/Bones:Facet arthropathy lumbosacral junction. No suspicious lesions identified.[ CT/CT abdomen pelvis w con IMPRESSION: Right parapelvic renal lesion noted possibly mildly complex with internal septations. This is new from prior imaging studies. Consider renal ultrasound. Otherwise negative acute inflammatory process or bowel obstruction. Impression dictated by: Surendra Casey M.D. 03/12/2025 10:20 PM Dictation Location: [place] [address] Transcribed By: [facility] 03/12/252219 Dictated By: Surendra Casey MD 03/12/252213 Signed By: <Electronically signed by Surendra Casey MD in OV> 03/12/252219 Vital Signs Vital Reading Result Reference Range Collection Date/Time Height 67 [in_i] March 12, 2025 8:08pm Weight 85.45 kg March 12, 2025 8:08pm Body Temperature 97.9 [degF] 97.6-99.0 March 12, 2 025 8:08pm Heart Rate 57 /min 60-100 March 12, 2025 11:00pm Respiratory rate 13 /min 12-24 March 12, 2 025 11:00pm Oxygen saturation by Pulse oximetry 96 % 95-100 March 12, 2025 11:00 pm BP Systolic 142 mm[Hg] 100-140 March 12, 2025 11:00pm BP Diastolic 74 mm[Hg] 60-100 March 12, 2025 11:00pm Advance Directives Advance Directive Response Recorded Date/ Time Advance Directives No November 23, 2 018 10:23am Insurance Providers Guarantor Oly Mendiola Address [address] [address] Contact Info. Home Phone: Payer Policy Id Subscriber's Name Subscriber Id Effectiv e Date Expiration Date Nina LOPEZ [id number] Oly Mendiola [id number] Encounters Encounter Location(s) Arrival/Admit Date Discharge/Depart Date Provider(s) Departed Referred -[facility] December 18, 2024 8:34am December 18, 2024 8:35am Nicanor Perez MD Departed Emergency -Emergency Room March 12, 2025 8:04pm March 12, 2025 11:33pm Plan of Treatment Future Tests Future scheduled test information is unavailable Pending Tests Test Name Ordered Date Scheduled Date Urine Culture March 12, 2025 8:42pm Future Visits Future appointment information is unavailable Referrals to Other Providers Reason for Referral Referral Start Date Provider Provider Contact Information Provider Address NON STAFF [address] [place] [address] Jennie Ayon MD Work Phone: [address] [place] [address], [address] [facility] [address] Future Procedures Procedure Name Ordered Date Scheduled Date Urine Culture March 12, 2025 8:49pm March 12, 2025 8:42pm Future Medications Future medication information is unavailable Patient Instructions Instruction Admit Date Hiatal hernia March 12, 2025 8:04p m Hospital Discharge Instructions Additional Instructions Take antibiotic as instructed until gone for your urinary tract infection You should eat small frequent meals Avoid, hot, fried foods. Avoid any caffeinated beverages Protonix daily Follow-up with your GI specialist call tomorrow for your appointment Please return here if any problems persist or worsen
--- OUTSIDE RECORDS SUMMARY | 2025-03-18 05:30 | XMS_ITS ---
Author Organization The [facility] in [place] Address [address] [place] [address] Care Team Providers Care Business Enterprise Officer Name Role Phone Judi Tapia Primary Care Provider REASON FOR VISIT Renal US- LMTCB X 1 Problems Problem Type SNOMED Code ICD Code Onset Dates Problem Status W/U Status Risk Notes Problem Renal mass (463287038) Renal mass (N28.89) Active confirmed Encounters Encounter Location Date Provider Diagnosis [facility] [address] [place] [address] 03/18/2025 Judi Tapia Renal mass N28.89 Assessments Encounter Date Diagnosis (ICD Code) Assessment Notes Treatment Notes Treatment Clinical Notes Section Notes 03/18/2025 Renal mass (ICD-10 - N28.89) Plan Of Treatment Pending Test Test Name Order Date US KIDNEYS BLADDER 03/18/2025 Progress Notes * WALKER OlyDOB:[birth year] (54 yo F)Acc No.[id number]:03/18/2025 Patient: Oly JONES :1970 A ge:54 Y S ex:Female Address:[address] [place] [address] Subjective: * Chief Complaints: * R enal US- LMTCB X 1 * Medical History: * Surgical History: * Hospitalization/Major Diagno stic Procedure: * Medications: Objective: * Vitals: * Physical Examination: Assessment: * Assessment: 1. R enal mass - N28.89 (Primary) Plan: * Treatment: * Procedure Codes: * true * Date: Generated for Monica fraser/Luisa/Yoel on: 0 03/19/2025 08:46 AM EDT
--- OUTSIDE RECORDS SUMMARY | 2025-03-18 08:45 | XMS_ITS | Encounter Summary ---
Author Organization [facility] Address [address] [place] [address] Care Team Providers Care Technician Helper Instrument Name Role Phone Judi Tapia RECYCLING WORKER - RAMP FLIGHT ATTENDANT Primary Care Provide r Encounter Details Date Type Department Care Team (Late st Contact Info) Description 03/18/2025 8:45 AM EDT Hospital Encounter [facility] Pre-Admit Testing [address] [place] [address] Arrived Social History Tobacco Use Types Packs/Day Years Used Date Smoking Tobacco: Former Cigarettes Smokeless Tobacco: Never Alcohol Use Standard Drinks/Week Comments Yes 0 (1 standard drink = 0.6 oz pur e alcohol) Rare [facility] Utilities Answer Date Recorded In the past 12 months has [employer] electric, gas, oil, or water company threatened [...] any time in the past 12 m [facility], were you homeless or living in a jail (including now)? No 08/28/2024 Food Insecurity Answer [...] Sign Reading Time Taken Comments Blood Pressure - - Pulse - - Temperature - - Respiratory Rate - - Oxygen Saturation - - Inhaled Oxygen Concentration - - Weight 85.3 kg (188 lb) 03/18/2025 1:05 PM EDT Height 170.2 cm (5' 7 ) 03/18/2025 1:05 PM EDT Body Mass Index 29.44 03/18/2025 1:05 PM EDT documented in this encounter Progress Notes * Enedelia Willoughby RN - 03/18/2025 8:45 AM EDT Pre-op Instructions For Out-Patient Endoscopy Surgery Medication Instructions: Please stop herbs and any supplements now (includes vitamins and minerals). For these medications: Dulaglutide (Trulicity), Exenatide (Byetta and Bydureon, Liraglutide (Victoza), Lixisenatide (Adlyxin), Semaglutide (Ozempic and Rybelsus), Tirzepatide (Mounjaro, Zepbound,Wegovy)- Stop 1 week prior if taking weekly or 1 day prior if taking every 12 hours or daily. Please contact your surgeon and prescribing physician for pre-op instructions for any blood thinners. ASPIRIN If you have inhalers/aerosol treatments at home, please use them the morning of your surgery and bring the inhalers with you to the hospital. Please take the following medications the morning of your surgery with a sip of water: metoprolol Surgery Instructions: After midnight before surgery: Do not eat or drink anything, including water, mints, gum, and hard candy. You may brush your teeth without swallowing. No smoking, chewing tobacco, or street drugs. Please Follow Bowel Prep instructions if given by surgeon's office Please shower or bathe before surgery. Please do not wear any cologne, lotion, powder, jewelry, piercings, perfume, makeup, nail bulgarian, hair accessories, or hair spray on the day of surgery. Wear loose comfortable clothing. Leave your valuables at home but bring a payment source for any after-surgery prescriptions you plan to fill at [facility]. Bring a storage case for any glasses/contacts. An adult who is responsible for you MUST remain in the hospital and drive you home and should be with you for the first 24 hours after surgery. The Day of Surgery: Arrive at [facility] Surgery Entrance at the time directed by your surgeon and check in at the desk. If you have a living will or healthcare power of communications strategist, please bring a copy. You will be taken to the pre-op holding area where you will be prepared for surgery. A physical assessment will be performed by a nurse practitioner or house furnishings supervisor. Your IV will be started and you will meet your anesthesiologist. When you go to surgery, your family will be directed to the surgical waiting room, where the doctorshoubang speak with them after your surgery. After surgery, you will be taken to the recovery area. When you are alert and stable, you will receive instructions and be prepared for discharge. Pt verbalized understanding, all questions answered. documented in this encounter Plan of Treatment Upcoming Encounters Date Type Department Care Team (Latest Contact Info) Description 04/01/2025 11:45 AM EDT Hospital Encounter [facility] [address] [place] [address] Jose Miguel Lucero MD [address] [place] [address] 04/01/2025 11:45 AM EDT - 04/01/2025 12:00 PM EDT Surgery [facility] [address] [place] [address] Jose Miguel Lucero MD [address] [place] [address] ESOPHAGOGASTRODUODENOSCOPY BIOPSY 04/19/2025 12:30 PM EDT Hospital Encounter [facility] [address] [place] [address] Jose Miguel Lucero MD [address] [place] [address] 04/19/2025 12:30 PM EDT - 04/19/2025 1:00 PM EDT Surgery [facility] [address] [place] [address] Jose Miguel Lucero MD [address] [place] [address] COLORECTAL CANCER SCREENING, NOT HIGH RISK Scheduled Procedures Name Priority Associated Diagnoses Date/Ti me ESOPHAGOGASTRODUODENOSCOPY BIOPSY Gastroesophageal reflux disease, unspecified whether esophagitis present 04/01/2025 11:45 AM EDT COLORECTAL CANCER SCREENING, NOT HIGH RISK Dysphagia, unspecified Screening for colon cancer 04/19/2025 12:30 PM EDT documented as of this encounter Visit Diagnoses Not on filedocumented in this encounter Care Teams Technician Helper Instrument Relationship Specialty Start Date End Date Judi Tapia, RECYCLING WORKER - RAMP FLIGHT ATTENDANT [address] [place], [place] [id number] PCP - General 08/29/24 documented as of this encounter
--- OUTSIDE RECORDS SUMMARY | 2025-03-19 04:30 | XMS_ITS ---
Author Organization The [facility] [place] Address [address] [place] [address] Care Team Providers Care Reverse Engineer Name Role Phone Judi Tapia Primary Care Provider [phone] Allergies Allergen (clinical drug ingredient) Drug/Non Drug Allergy documented on EMR Reaction Allergy Type Onset Date Status Flexeril (uncoded) anaphylaxis Allergy Active Penicillin (uncoded) arm swelling Allergy Active REASON FOR VISIT ER f/u, patient states her throat hurts and shes having trouble swallowing. also she said shes tired all the time Medications Medication SIG (Take, Route, Frequency, Duration) Notes Start Date End Date Status Daily Vitamin Active Aspirin 81 81 MG 1 tablet Orally Once a day Active Dicyclomine HCl 20 MG 1 tablet Orally Th ree times a day Active Ketorolac Tromethamine 10 MG 1 tablet wi th food or milk as needed Orally every 6 hrs Active Sertraline HCl 50 MG TAKE 1/2 TABLET MARY LY FOR 1 WEEK THEN INCREASE TO 1 TABLET DAILY for 90 Active Promethazine HCl 25 MG 1 tablet as neede d Orally q6h for 30 days 12/05/2023 Active MiraLax Active Pantoprazole Sodium 40 MG TAKE 1 TABLET BY MOUTH EVERY DAY IN THE EVENING for 90 Active Lisinopril 40 MG 1 tablet Orally Once a day for 30 days 03/20/2024 Active Metoclopramide HCl 5 MG TAKE 1 TABLET BY MOUTH BEFORE MEALS AND AT BEDTIME for 30 Active levETIRAcetam 1000 MG 1 tablet Orally ev sruthi 12 hrs for 7 days Active Levsin/SL 0.125 MG 1 tablet under the tongue and allow to dissolve as needed for abd pain Sublingual AC and HS 12/05/2023 Active Social History Tobacco Use: Social History Observation Description Date Details (start date - stop date) Never Smoker NA - NA Tobacco Use/Smoking Question Answer Notes Patient is a nonsmoker AUDIT-C (Standard) Question Answer Notes Did you have a drink containing alcohol in the p ast year? No Points 0 Interpretation Negative Vital Signs Weight 188 lbs 03/19/2025 Height 67 in 03/19/2025 Blood pressure systolic 130 mm Hg 03/19/20 25 Blood pressure diastolic 72 mm Hg 025 BMI 29.44 kg/m2 03/19/2025 Encounters Encounter Location Date Provider Diagnosis [facility] [address] [place] [address] 03/19/2025 Judi Tapia Fatigue R53.83 and Dyskinesia of esophagus K22.4 Assessments Encounter Date Diagnosis (ICD Code) Assessment Notes Treatment Notes Treatment Clinical Notes Section Notes 03/19/2025 Fatigue (ICD-10 - R53.83) continue with sleep study 03/19/2025 Dyskinesia of esophagus (ICD-10 - K22.4) Plan Of Treatment Treatment Notes Assessment Notes Fatigue continue with sleep study Pending Test Test Name Order Date HEMOGLOBIN A1C (GLYCO) 03/19/2025 IRON, TOTAL 03/19/2025 VITAMIN D, 25 LEVEL (TOTAL) 03/19/2025 VITAMIN B12 03/19/2025 THYROID PANEL (T4/TSH/FREE T3) CMP (COMP MET HERNANDEZ) w/eGFR CKD-EPI 2024 CBC WITH DIFF 03/19/2025 Progress Notes * Oly CARDOSODOB:[birth year] (54 yo F)Acc No.[id number]:03/19/2025 UNLOCKED PROGRESS NOTE Progress Note Patient: Oly JONES Provider: Cesia Tapia ([facility]), KNOTTER HAND :1970 A ge:54 Y S ex:Female Date:03/19/2025 Address:[address] [facility] [id number] Check In:08:01 AM ESTCheck O ut:08:24 AM EST Subjective: * Chief Complaints: * 1 . ER f/u. 2. Patient states her throat hurts and shes having trouble swallowing. also she said shes tired all the time. * HPI: G eneral: trouble swallowing , throat feels like its swollen feels like something in throat Dr Boone, scope scheduled for sharp pains in belly, lower abdomen sleep apnea, fatigue, second sleep study on . * Medical History: M itrovalve prolapse, Acute diverticulitis, Dyskinesia of esophagus. * Surgical History: G allbladder , Hysterectomy , Hernia Repair . * Hospitalization/Major Diagno stic Procedure: A bd Pain, Vomiting 03/25/2023, bowel obstruction 10/2023, bowel obstruction 11/26, Bowel Obstruction- [facility] sent to [facility] 08/2024. * Family History: F ather: , Cancer. M other: alive. B rother(s): alcohol abuse. S ister(s): alive, thyroid disease, [...] Sublingual AC and HS , Taking Lisinopril 40 MG Tablet 1 tablet Orally Once a day , Taking Metoclopramide HCl 5 MG Tablet TAKE 1 TABLET BY MOUTH BEFORE MEALS AND AT BEDTIME , Taking MiraLax , Taking Pantoprazole Sodium [...] swelling, Flexeril: anaphylaxis. Objective: * Vitals: W t:188lbs, Ht: 67 in, BP:130/72mm Hg, BMI:29.44Index, Ht-cm: 170.18 cm, Wt-k.28 kg. Assessment: * Assessment: 1. F atigue - R53.83 (Primary) 2 . D yskinesia of esophagus - K22.4 ? Plan: * Treatment: * Preventive Medicine: Screenings/Counseling: B SD ACTION PLAN Above Normal BMI Follow-up D ietary management education, guidance, and counseling * * Electronic signature of Evette Milner NP, MAINTENANCE TEAM LEADER.KNOTTER [email or web address].[id number] on 03/19/2025 at 08:45 AM EDT Sign off status: Pending Visit Status: C HK (Check Out) * Provider: Cesia Tapia ([facility]), KNOTTER HAND Date: 03/19/2025 Generated for Monica fraser/Luisa/Yoel on: 03/19/2025 08:45 AM EDT History and Physical Notes * HPI (History of Present Illness) Category Sub-Category Detail Notes Category Not es General trouble swallowing , throat feels like its swollen feels like something in throat Dr Boone, scope scheduled for sharp pains in belly, lower abdomen sleep apnea, fatigue, second sleep study on
--- OUTSIDE RECORDS SUMMARY | 2025-03-19 08:45 | XMS_ITS | Encounter Summary ---
Author Organization [facility] Address [facility] [place] [address] Care Team Providers Care Line Erector Name Role Phone Joel Alejandra DO Primary Care Provider [phone] Rafa Rangel Unavailable [phone] Source Comments In the event this information is protected by the Federal Confidentiality of Alcohol and Drug AbusePatient Records regulations: The Federal rules restrict any use of the information to criminally investigate or prosecute any alcohol or drug abuse patient.[facility] Encounter Details Date Type Department Care Team (Late st Contact Info) Description 03/05/2025 [place] [address] Provider, Ccf Sign up to manage your digestive symptoms in between visits, covered by insurance Social History Tobacco Use Types Packs/Day Years [...] is lower risk 8 05/06/2023 Data from: https://www.neighborhoodatlas.medicine.[facility]/. Last address used for calculation [address] [...] on filedocumented in this encounter Care Teams Line Erector Relationship Specialty Start Date End Date Joel Alejandra DO PCP - General Family Medicine 04/26/18 Rafa Rangel [address] [place] [phone] Referring General Surgery 04/26/18 documented as of this encounter
--- OUTSIDE RECORDS SUMMARY | 2025-03-19 08:46 | XMS_ITS | Encounter Summary ---
Author Organization [facility] Address [address] [place] [address] Care Team Providers Care Restaurant Managing Partner Name Role Phone Judi Tapia GREASER AND OILER - BOWLING ALLEY MECHANIC Primary Care Provide r Encounter Details Date Type Department Care Team (Latest Contact Info) Description 03/18/2025 Travel Social History Tobacco Use Types Packs/Day Years Used Date Smoking Tobacco: Former Cigarettes Smokeless Tobacco: Never Alcohol Use Standard Drinks/Week Comments Yes 0 (1 standard drink = 0.6 oz pur e alcohol) Rare [facility] Utilities Answer Date Recorded In the past 12 months has th e [employer], gas, oil, or water [employer] threatened to shut off services in your [...] were you homeless or living in a correction (including now)? No 08/28/2024 Food Insecurity Answer [...] Description 04/01/2025 11:45 AM EDT Hospital Encounter [facility] [address] [place] [address] Jose Miguel Lucero MD [address] [facility] [address] [place] [address] 04/01/2025 11:45 AM EDT - 04/01/2025 12:00 PM EDT Surgery [facility] [address] [place] [address] Jose Miguel Lucero MD [address] [facility] [address] [place] [address] ESOPHAGOGASTRODUODENOSCOPY BIOPSY 04/19/2025 12:30 PM EDT Hospital Encounter [facility] [address] [place] [address] Jose Miguel Lucero MD [address] [place] [address] 04/19/2025 12:30 PM EDT - 04/19/2025 1:00 PM EDT Surgery [facility] [address] [place] [address] Jose Miguel Lucero MD [address] [facility] [address] [place] [address] COLORECTAL CANCER SCREENING, NOT HIGH RISK Scheduled Procedures Name Priority Associated Diagnoses Date/Ti me ESOPHAGOGASTRODUODENOSCOPY BIOPSY Gastroesophageal reflux disease, unspecified whether esophagitis present 04/01/2025 11:45 AM EDT COLORECTAL CANCER SCREENING, NOT HIGH RISK Dysphagia, unspecified Screening for colon cancer 04/19/2025 12:30 PM EDT documented as of this encounter Visit Diagnoses Not on filedocumented in this encounter Care Teams Restaurant Managing Partner Relationship Specialty Start Date End Date Judi Tapia, GREASER AND OILER - BOWLING ALLEY MECHANIC [address] [place] [address] PCP - General 08/29/24 documented as of this encounter
--- OUTSIDE RECORDS SUMMARY | 2025-03-19 08:46 | XMS_ITS | Encounter Summary ---
Author Organization [facility] Address [address] [place] [address] Care Team Providers Care Advertising Material Distributor Name Role Phone Joel Alejandra Primary Care Provider [phone] Rafa Rangel Unavailable [phone] Source Comments In the event this information is protected by the Federal Confidentiality of Alcohol and Drug AbusePatient Records regulations: The Federal rules restrict any use of the information to criminally investigate or prosecute any alcohol or drug abuse patient.[facility] Encounter Details Date Type Department Care Team (Late st Contact Info) Description 06/16/2023 Patient Msg General Surgery [address] [phone] Provider, Ccf Upcoming appointments Social History Tobacco [...] is lower risk 8 05/06/2023 Data from: https://www.neighborhoodatlas.medicine.[facility].edu/. Last address used for calculation [address] [...] on filedocumented in this encounter Care Teams Advertising Material Distributor Relationship Specialty Start Date End Date Joel Alejandra DO PCP - General Family Medicine 04/26/18 Rafa Rangel [address] [place] [phone] Referring General Surgery 04/26/18 documented as of this encounter
--- OUTSIDE RECORDS SUMMARY | 2025-03-19 08:46 | XMS_ITS | Encounter Summary ---
Author Organization [facility] Address [address] [place] [address] Care Team Providers Care Door Furring Installer Name Role Phone Joel Alejandra DO Primary Care Provider [phone] Rafa Rangel Unavailable [phone] Source Comments In the event this information is protected by the Federal Confidentiality of Alcohol and Drug AbusePatient Records regulations: The Federal rules restrict any use of the information to criminally investigate or prosecute any alcohol or drug abuse patient.[facility] Encounter Details Date Type Department Care Team (Late st Contact Info) Description 06/28/2023 Patient Msg General Surgery [address] [phone] Evelyn Berger, RN EGD Social History Tobacco [...] is lower risk 8 05/06/2023 Data from: https://www.neighborhoodatlas.medicine.[facility].edu/. Last address used for calculation [address] [...] on filedocumented in this encounter Care Teams Door Furring Installer Relationship Specialty Start Date End Date Joel Alejandra DO PCP - General Family Medicine 04/26/18 Rafa Rangel [address] [place] [phone] Referring General Surgery 04/26/18 documented as of this encounter
--- OUTSIDE RECORDS SUMMARY | 2025-03-19 08:46 | XMS_ITS | Encounter Summary ---
Author Organization [facility] Address [address] [place] [address] Care Team Providers Care Pen Ruler Operator Name Role Phone Unallocated, [facility] Edin BAKER Primary Care Provi christine Judi Tapia MD Unavailable [phone] Nikki Ayoub Unavailable Encounter Details Date Type Department Care Team (Late st Contact Info) Description 03/26/[address] [facility] [address] [facility] [address] [place] [phone] Rafa Rangel DO [address] [facility] [address] [place] [address] Social History Tobacco Use Types [...] on filedocumented in this encounter Care Teams Pen Ruler Operator Relationship Specialty Start Date End Date Unallocated, Noms MD Edin [address] [place] [address] PCP - General 04/25/23 Judi Tapia MD [address] [place] [address] Referring Physician Family Medicine 04/25/23 Nikki Ayoub PA [address] [place], [place] [phone] Physician Car Designer Neurology 11/26/24 documented as of this encounter
--- OUTSIDE RECORDS SUMMARY | 2025-03-19 08:46 | XMS_ITS | Encounter Summary ---
Author Organization [facility] Address [address] [place] [address] Care Team Providers Care Warehouse Receiver Name Role Phone Joel Alejandra DO Primary Care Provider [phone] Rafa Rangelangelicanoemi Unavailable [phone] Source Comments In the event this information is protected by the Federal Confidentiality of Alcohol and Drug AbusePatient Records regulations: The Federal rules restrict any use of the information to criminally investigate or prosecute any alcohol or drug abuse patient.[facility] Encounter Details Date Type Department Care Team (Late st Contact Info) Description 05/27/2023 Patient Msg General Surgery [address] [phone] Evelyn Berger RN EGD/POP PROCEDURE WITH DR [...] is lower risk 8 05/06/2023 Data from: https://www.neighborhoodatlas.medicine.[facility].edu/. Last address used for calculation [address] [...] filedocumented in this encounter Care Teams Warehouse Receiver Relationship Specialty Start Date End Date Joel Alejandra DO PCP - General Family Medicine 04/26/18 Rafa Rangel [address] [phone] Referring General Surgery 04/26/18 documented as of this encounter
--- OUTSIDE RECORDS SUMMARY | 2025-03-19 08:46 | XMS_ITS | Clinical Summary ---
Author Organization [facility] Address [address] [place] [address] Care Team Providers Care Reweaver Name Role Phone Ny Joel Onel Primary Care Provider [phone] Rafa Rangel Unavailable [phone] Allergies Active Allergy Reactions Criticality Noted Date [...] Date Hiatal hernia 04/28/2018 Morbid obesity 04/28/2018 Encounters Date Type Department Care Team Description 03/05/2025 [place] [address] Provider, Ccf Sign up to manage your digestive symptoms in between visits, covered by insurance from Last 3 Months Social History Tobacco Use Types Packs/Day Years Used Date Smoking Tobacco: Former Cigarettes 1 - 2011 Smokeless Tobacco: Never Tobacco Cessation:Counseling [...] is lower risk 8 05/06/2023 Data from: https://www.neighborhoodatlas.medicine.[facility].edu/. Last address used for calculation [address] [...] Vaccine (1 of 2) 2020 Covid-19 Vaccine (6 2023-2 5 season) 2024 06/15/2022, 03/18/2022, 11/06/2021, Additional history exists Influenza Vaccine (#1) 2025 06/09/2022 Insurance BLUE ACCESS PPO Care Teams Reweaver Relationship Specialty Start Date End Date Joel Alejandra DO PCP - General Family Medicine 04/26/18 Rafa Rangel [address] [place] [phone] Referring General Surgery 04/26/18
--- OUTSIDE RECORDS SUMMARY | 2025-03-19 08:46 | XMS_ITS | Clinical Summary ---
Author Organization [facility] Address [address] [place] [address] Care Team Providers Care Cnc Technician Name Role Phone Judi Tapia PIPE STEM SAWYER - CARPENTER GENERAL Primary Care Provide r Allergies Active Allergy [...] Take per bowel prep instructions 238 g Active bisacodyl 5 MG EC tablet Take as directed for bowel prep/colonoscopy 4 tablet 5 Active dicyclomine (BENTYL) 10 MG capsule Take 1 capsule by mouth 4 times daily as needed (pain lower abdomen) 45 capsule 2 Active aspirin 81 MG EC tablet Take 1 tablet by mouth every morning Active Active Problems Problem Noted Date Diagnosed Date Gastroesophageal reflux disease 03/14/2025 Dysphagia, unspecified 02/26/2025 Screening for colon cancer 02/26/2025 Generalized abdominal pain 08/30/2024 Primary hypertension 08/29/2024 Gastroesophageal reflux dise ase with esophagitis without hemorrhage 08/29/2024 Major depressive disorder 08/29/2024 Hypokalemia 08/29/2024 Ileus 08/28/2024 Other dysphagia 08/15/2024 Encounters Date Type Department Care Team Description 03/18/2025 8:45 AM EDT Hospital Encounter [facility] Pre-Admit Testing [address] [place] [address] Arrived 03/18/2025 Travel 03/14/2025 Prep for Procedure [facility] Gastroenterology [address] [place] [address] [phone] Jose Miguel Lucero MD 02/26/2025 1:30 PM EDT [facility] [address] [place] [address] [phone] Jose Miguel Lucero MD Dysphagia, unspecified type (Primary Dx); Generalized abdominal pain; Screen for colon cancer 02/26/2025 Telephone [facility] Gastroenterology [address] [place] [address] [phone] Jose Miguel Lucero MD Procedure (EGD/colon) 02/26/2025 Prep for Procedure [facility] Gastroenterology [address] [place] [address] [phone] Jose Miguel Lucero MD Screening for colon cancer 02/11/2025 Telephone [facility] Gastroenterology [address] [facility] [address] [place] [address] Jose Miguel Lucero MD Appointment Requested from Last 3 Months Social History Tobacco Use Types Packs/Day Years Used Date Smoking Tobacco: Former Cigarettes Smokeless Tobacco: Never Tobacco Cessation:Counseling Given: Not Answered Alcohol Use Standard Drinks/Week Comments Yes 0 (1 standard drink = 0.6 oz pur e alcohol) Rare [facility] Utilities Answer Date Recorded In the past 12 months has th e [employer], gas, oil, or water [employer] threatened to shut off services in your [...] any time in the past 12 m [facility], were you homeless or living in a alf (including now)? No 08/28/2024 Food Insecurity Answer [...] Mass Index 29.44 03/18/2025 1:05 PM EDT Plan of Treatment Upcoming Encounters Date Type Department Care Team (Latest Contact Info) Description 04/01/2025 11:45 AM EDT Hospital Encounter [facility] ENDO [address] [place] [address] Jose Miguel Lucero MD [address] [facility] [address] [place] [address] 04/01/2025 11:45 AM EDT - 04/01/2025 12:00 PM EDT Surgery [facility] [address] [place] [address] Jose Miguel Lucero MD [address] [facility] [address] [place] [address] ESOPHAGOGASTRODUODENOSCOPY BIOPSY 04/19/2025 12:30 PM EDT Hospital Encounter [facility] [address] [place] [address] Jose Miguel Lucero MD [address] [facility] [address] [place] [address] 04/19/2025 12:30 PM EDT - 04/19/2025 1:00 PM EDT Surgery [facility] [address] [place] [address] Jose Miguel Lucero MD [address] [facility] [address] [place] [address] COLORECTAL CANCER SCREENING, NOT HIGH RISK Scheduled [...] 1 - PCV) 2020 COVID-19 Vaccine ( - 2023- season) 2024 06/15/2022, 03/18/2022, 11/06/2021, Additional history [...] patient's age to complete this topic Insurance [place] Advance Directives * Full Code (Latest Code Status on File) Date Activated Date Inactivated Comments 08/28/2024 3:16 PM 08/30/2024 6:26 PM Care Teams Cnc Technician Relationship Specialty Start Date End Date Judi Tapia, ANDREEA - CARPENTER GENERAL [address] [place] [address] PCP - General 08/29/24
--- OUTSIDE RECORDS SUMMARY | 2025-03-19 08:47 | XMS_ITS | Encounter Summary ---
Author Organization [facility] Address [address] [place] [address] Care Team Providers Care Rn Surgical Name Role Phone Judi Tapia GUIDE TRAVEL - METALIZING MACHINE OPERATOR AUTOMATIC Primary Care Provide r Encounter Details Date Type Department Care Team (Latest Contact Info) Description 02/26/2025 Prep for Procedure [facility] Gastroenterology [address] [facility] [address] [place] [phone] Jose Miguel Lucero MD [address] [facility] [address] [place], [place] [phone] Screening for colon cancer Social History Tobacco Use Types Packs/Day Years Used Date Smoking Tobacco: Former Cigarettes Smokeless Tobacco: Never Alcohol Use Standard Drinks/Week Comments Yes 0 (1 standard drink = 0.6 oz pur e alcohol) Rare [facility] Utilities Answer Date Recorded In the past 12 months has [employer], gas, oil, or water [employer] threatened to shut off services in your [...] were you homeless or living in a penitentiary (including now)? No 08/28/2024 Food Insecurity Answer [...] AM EDT Hospital Encounter [facility] [address] [place] [address] Jose Miguel Lucero MD [address] [facility] [address] [place] [address] 04/01/2025 11:45 AM EDT - 04/01/2025 12:00 PM EDT Surgery [facility] [address] [place] [address] Jose Miguel Lucero MD [address] [facility] [address] [place] [address] ESOPHAGOGASTRODUODENOSCOPY BIOPSY 04/19/2025 12:30 PM EDT Hospital Encounter [facility] [address] [place] [address] Jose Miguel Lucero MD [address] [facility] [address] [place] [address] 04/19/2025 12:30 PM EDT - 04/19/2025 1:00 PM EDT Surgery [facility] [address] [place] [address] Jose Miguel Lucero MD [address] [address] COLORECTAL CANCER SCREENING, NOT HIGH RISK Scheduled [...] colon documented in this encounter Care Teams Rn Surgical Relationship Specialty Start Date End Date Judi Tapia, GUIDE TRAVEL - METALIZING MACHINE OPERATOR AUTOMATIC [address] [place] [address] PCP - General 08/29/24 documented as of this encounter
--- OUTSIDE RECORDS SUMMARY | 2025-03-19 08:47 | XMS_ITS | Encounter Summary ---
Author Organization [facility] Address [address] [place] [address] Care Team Providers Care Human Geography Faculty Member Name Role Phone Judi Tapia POULTRY PICKER - CLASSROOM COORDINATOR Primary Care Provide r Reason for Visit * Reason Onset Date Comments Procedure 02/26/2025 EGD/colon Encounter Details Date Type Department Care Team ([facility] Contact Info) Description 02/26/2025 Telephone [facility] Gastroenterology [address] [facility] [address] [place] [address] Jose Miguel Lucero MD [address] [facility] [address] [place] [id number] Procedure (EGD/colon) Social History Tobacco Use Types Packs/Day Years Used Date Smoking Tobacco: Former Cigarettes Smokeless Tobacco: Never Alcohol Use Standard Drinks/Week Comments Yes 0 (1 standard drink = 0.6 oz pur e alcohol) Rare [facility] Utilities Answer Date Recorded In the past 12 months has [employer], gas, oil, or water company threatened to [...] any time in the past 12 m [facility], were you homeless or living in a longterm (including now)? No 08/28/2024 Food Insecurity Answer [...] AM EDT Hospital Encounter [facility] [address] [place] [address] Jose Miguel Lucero MD [address] [facility] [address] [place] [id number] 04/01/2025 11:45 AM EDT - 04/01/2025 12:00 PM EDT Surgery [facility] [address] [place] [address] Jose Miguel Lucero MD [address] [facility] [address] [place] [address] ESOPHAGOGASTRODUODENOSCOPY BIOPSY 04/19/2025 12:30 PM EDT Hospital Encounter [facility] [address] [place] [address] Jose Miguel Lucero MD [address] [address] 04/19/2025 12:30 PM EDT - 04/19/2025 1:00 PM EDT Surgery [facility] [address] [place] [address] Jose Miguel Lucero MD [address] [address] COLORECTAL CANCER SCREENING, NOT HIGH RISK Scheduled Procedures Name Priority Associated Diagnoses Date/Ti me ESOPHAGOGASTRODUODENOSCOPY BIOPSY Gastroesophageal reflux disease, unspecified whether esophagitis present 04/01/2025 11:45 AM EDT COLORECTAL CANCER SCREENING, NOT HIGH RISK Dysphagia, unspecified Screening for colon cancer 04/19/2025 12:30 PM EDT documented as of this encounter Visit Diagnoses Not on filedocumented in this encounter Care Teams Human Geography Faculty Member Relationship Specialty Start Date End Date Judi Tapia, POULTRY PICKER - CLASSROOM COORDINATOR [facility] [place] [address] PCP - General 08/29/24 documented as of this encounter
--- OUTSIDE RECORDS SUMMARY | 2025-03-19 08:47 | XMS_ITS | Encounter Summary ---
Author Organization [facility] Address [address] [place] [address] Care Team Providers Care Shingle Shearing Machine Operator Name Role Phone Judi Tapia CLASSROOM ASSISTANT - TOUR BUS DRIVER Primary Care Provide r Encounter Details Date Type Department Care Team ([facility] Contact Info) Description 03/14/2025 Prep for Procedure [facility] Gastroenterology [address] [facility] [address] [place] [phone] Jose Miguel Lucero MD [address] [facility] [address] [place] [address] Social History Tobacco Use Types Packs/Day Years Used Date Smoking Tobacco: Former Cigarettes Smokeless Tobacco: Never Alcohol Use Standard Drinks/Week Comments Yes 0 (1 standard drink = 0.6 oz pur e alcohol) Rare [facility] Utilities Answer Date Recorded In the past 12 months has [employer], gas, oil, or water [employer] threatened to shut off services in your [...] any time in the past [address] [facility], were you homeless or living in a snf (including now)? No 08/28/2024 Food Insecurity Answer [...] AM EDT Hospital Encounter [facility] [address] [place] [address] Jose Miguel Lucero MD [address] [facility] [address] [place] [address] 04/01/2025 11:45 AM EDT - 04/01/2025 12:00 PM EDT Surgery [facility] [address] [place] [address] Jose Miguel Lucero MD [address] [facility] [address] [place] [address] ESOPHAGOGASTRODUODENOSCOPY BIOPSY 04/19/2025 12:30 PM EDT Hospital Encounter [facility] [address] [place] [address] Jose Miguel Lucero MD [address] [facility] [address] [place] [address] 04/19/2025 12:30 PM EDT - 04/19/2025 1:00 PM EDT Surgery [facility] [address] [place] [address] Jose Miguel Lucero MD [address] [address] COLORECTAL CANCER SCREENING, NOT HIGH RISK Scheduled Procedures Name Priority Associated Diagnoses Date/Ti me ESOPHAGOGASTRODUODENOSCOPY BIOPSY Gastroesophageal reflux disease, unspecified whether esophagitis present 04/01/2025 11:45 AM EDT COLORECTAL CANCER SCREENING, NOT HIGH RISK Dysphagia, unspecified Screening for colon cancer 04/19/2025 12:30 PM EDT documented as of this encounter Visit Diagnoses Not on filedocumented in this encounter Care Teams Shingle Shearing Machine Operator Relationship Specialty Start Date End Date Judi Tapia, CLASSROOM ASSISTANT - TOUR BUS DRIVER [address] [place] [address] PCP - General 08/29/24 documented as of this encounter
--- OUTSIDE RECORDS SUMMARY | 2025-03-19 08:47 | XMS_ITS | Patient Health Record ---
Author Organization [facility] Address [address] [place] [address] Care Team Providers Care Cooperative Extension Agent Name Role Phone Judi Tapia Primary Care Provider Samuel Steve Unavailable [phone] Nichole Anglin Unavailable Allergies Allergen (clinical drug ingredient) Drug/Non Drug Allergy documented on EMR Reaction Allergy Type Onset Date Status penicillin (uncoded) Unknown Allergy Active Flexeril Unknown Drug Allergy Active Reason For Referral Reason APPROVED ........... ..............PLEASE OBTAIN AUTHORIZATION FOR LEFT KNEE MRI Diagnosis 1 Acute pain of left k nee (M25.562) Referral Organization [facility] Offic e Referring Provider First Name Nichole Referring Provider [facility] Referring Provider Speciality Physician Continuous Process Machine Operator [facility] Referred Address [place], [place], Procedure 1 MRI Joint Lower Ext w/o Dye ([address]) General Notes Aicha Hooper 024 11:40:10 AM >APPROVED PER JAZZYJorge L VALID 07/02/2024-07/31/2024 COPY IN CHART MA NOTIFIED REF FAXED TO Mayda CONLEY Kimberly 07/02/2024 01:00:55 PM >Faxed order to [place] Referral Priority Routine Reason APPROVED for MRI LT knee Diagnosis 1 Acute pain of left k nee (M25.562) Referral Organization [facility] Referring Provider First Name Ponce Referring Provider Last Name Tamela Referring Provider Speciality Orthopedic Surgery Referred Organization [facility] Referred Address [address] [place],[address],[place] General Notes Denice Dao 09:18:02 AM >PLEASE [...] Speciality Nurse Prac titioner Referred Organization [facility] Referred Address [address],[place],[address],[place] General Notes Marisela Varghese 03:18:38 PM > [...] First Name Samuel Referring Provider Last Name [place] Referring Provider Speciality Orthopedic Surgery [facility] Referred Address [address] [facility],[address],[place],[address], General Notes Marisela Varghese 03:31:51 PM > [...] Status Risk Notes Problem Contusion of knee (46556663) Contusion of knee, left (S80.02XA) Active confirmed Problem Contusion of left knee ([id number]) Contusion of left knee, subsequent encounter (S80.02XD) Active confirmed Vital Signs Height 5'1 in 08/06/2024 Weight 182 lbs 08/06/2024 BMI 34.38 08/06/2024 Encounters Encounter Location Date Provider Diagnosis [facility] Office [address] [place] [address] [place] [address] 07/02/2024 Nichole Villaiteland Effusion, left knee M25.462 and Contusion of knee, left S80.02XA [facility] Office [address] [employer] [facility] [place] [address] [place] [address] 07/16/2024 Nichole Villaiteland Contusion of left knee, subsequent encounter S80.02XD [facility] Office [address] [place] [address] [place] [address] 08/06/2024 Samuel Harp Contusion of left knee, [...] MRI : Knee W/O Contrast Left - [id number] Insurance Providers Payer Name Payer Address Payer Phone Subscriber Number Group Number Insured Name Patient Relationship to Insured Coverage Start Date Coverage End Date Lizette- SI only [address] [place] [address] [phone] DOI 24 lt knee CONSTANTINO CARDOSO Self - patient is the insured 4 [facility] [address] [place] [address] [id number] CONSTANTINO CARDOSO Self - patient is the insured Medical (General) History Medical History History ICD Code Heart problems: High Blood Pressure
--- OUTSIDE RECORDS SUMMARY | 2025-03-19 08:47 | XMS_ITS | Encounter Summary ---
Author Organization [facility] Address [address] [place] [address] Care Team Providers Care Aerial Hurricane Hunter Name Role Phone Joel Alejandra Primary Care Provider [phone] Rafa Rangel Unavailable [phone] Source Comments In the event this information is protected by the Federal Confidentiality of Alcohol and Drug AbusePatient Records regulations: The Federal rules restrict any use of the information to criminally investigate or prosecute any alcohol or drug abuse patient.[facility] Encounter Details Date Type Department Care Team (Late st Contact Info) Description 07/22/2023 Patient Msg General Surgery [address] [place] [phone] Provider, [facility] Nutrition Summary Social History Tobacco [...] is lower risk 8 05/06/2023 Data from: https://www.neighborhoodatlas.medicine.[facility].edu/. Last address used for calculation [address] [...] on filedocumented in this encounter Care Teams Aerial Hurricane Hunter Relationship Specialty Start Date End Date Joel Alejandra DO PCP - General Family Medicine 04/26/18 Rafa Rangel [address] [address] Referring General Surgery 04/26/18 documented as of this encounter
--- OUTSIDE RECORDS SUMMARY | 2025-03-19 08:47 | XMS_ITS | Clinical Summary ---
Author Organization [facility] Address [address] [place] [address] Care Team Providers Care Mechanical Systems Control Engineer Name Role Phone Judi Tapia REJI Primary Care Provider [phone] Allergies Active Allergy Reactions Criticality Noted Date Comments Cyclobenzaprine Other,Swelling High 04/28/2018 Penicillins Other,Rash,Swelling High 04/28/2018 Medications sertraline (Zoloft) 50 mg tablet Take 50 mg by mouth in the morning. 4 Active lisinopril 10 mg tabletIndication s:Essential hypertension Take 1 tablet (10 mg) by mouth in the morning. 30 tablet 11 4 Active Additional Information Patient taking differently: 40 [...] Description 02/28/2025 9:40 AM EDT Office Visit [place] [address] [place] [address] Elio Heart MD Other chest pain (Primary Dx); CA (dyspnea on exertion); Palpitations; Sinus tachycardia; Essential hypertension; Pure hypercholesterolemia; Obstructive sleep apnea; Overweight (BMI 25.0-29.9); Former smoker 02/04/2025 Telephone [facility] [address] [place] [address] Ros Meza MA 01/11/2025 Orders Only [facility] [address] [place] [phone] Elio Heart MD Other chest pain (Primary Dx) 12/28/2024 1:20 PM EDT Office Visit [facility] [address] [place] [address] Elio Heart MD Other chest pain (Primary Dx); Palpitations; Sinus tachycardia; CA (dyspnea on exertion); Essential hypertension; Overweight (BMI 25.0-29.9); Former smoker 12/20/2024 Telephone [facility] [address] [place] [address] Christina Plummer MA from Last [...] Most Recently Relevant to Health Maintenance Insurance [facility] Care Teams Mechanical Systems Control Engineer Relationship Specialty Start Date End Date Judi Tapia CNP [address] [place] [address] [place] [address] PCP - General Family Medicine 02/14/24
--- OUTSIDE RECORDS SUMMARY | 2025-03-19 08:47 | XMS_ITS | Patient Health Record ---
Author Organization [facility] in [place] Address [address] [place] [address] Care Team Providers Care Parking Garage Manager Name Role Phone Judi Youssef Primary Care Provider Isaac Izaguirre Kye [phone] Allergies Allergen (clinical drug ingredient) Drug/Non Drug Allergy documented on EMR Reaction Allergy Type Onset Date Status Flexeril (uncoded) anaphylaxis Allergy Active Penicillin (uncoded) arm swelling Allergy Active Results Component Value Reference Range Notes MAGNESIUM Reviewed date:09/07/2024 11:32:59 AM Interpretation: Performing Lab: Notes/Report: [facility] , Magnesium 2.1 1.8-2.4 mg/dL Performing Lab: see note - [facility] LB UA (Urinalysis, Dipstix only - w/o [...] ESTERASE (PETER) + NEG - NEG MG/DL LACTATE or LACTIC ACID Reviewed date:04/16/2024 04:53:42 PM Interpretation: Performing Lab: Notes/Report: [facility] , Lactate/Lactic Acid 1.0 0.4-2.0 mmol/L Performing Lab: see note ML - [facility] LB LIPASE Reviewed date:04/16/2024 04:53:42 PM Interpretation: Performing Lab: Notes/Report: [facility] , Lipase 39.0 16.0-77.0 U/L Performing Lab: see note - [facility] LB PROF 14(COMP METB) Reviewed date:04/16/2024 04:53:42 PM Interpretation: Performing Lab: Notes/Report: [facility] , Sodium 141 136-145 mmol/L Potassium [...] 1.0 Performing Lab: see note ML - [facility] LB URINE MICROSCOPIC ONLY Reviewed date:04/16/2024 04:53:42 PM Interpretation: Performing Lab: Notes/Report: [facility] , WBC Urine NONE SEEN NONE SEEN #/HPF RBC Urine 0-2 0-2 #/HPF Bacteria Urine NONE SEEN NONE SEEN #/HPF Mucus Urine NONE SEEN NONE SEEN Squamous Epithelial Cell Urine RARE NONE/RARE #/LPF Crystals Seen? None Seen None Seen #/HPF Cast Seen? NONE SEEN NONE SEEN #/LPF Urine Culture Indicated NO Performing Lab: see note ML - [facility] LB Troponin I High Sensitivity Reviewed date:04/16/2024 04:53:42 PM Interpretation: Performing Lab: Notes/Report: [facility] , Troponin I High Sensitivity 28.4 4.0-51.3 pg/mL CUT-OFF POINTS HAVE BEEN ESTABLISHED BASED ON THE FOURTH UNIVERSAL DEFINITION OF MYOCARDIAL INFARCTION. THE UPPER REFERENCE LIMIT (URL) OF TROPONIN, DEFINED THE 99TH PERCENTILE OF cTnI DISTRIBUTION IN A REFERENCE POPULATION, HAS BEEN CONFIRMED THE DECISION THRESHOLD FOR [place] DIAGNOSIS. 99TH PERCENTILE = 51.4 PG/ML NOTE: HIGH-SENSITIVITY TROPONIN ASSAY IS NOT INTENDED TO BE USED IN ISOLATION BUT SHOULD BE INTERPRETED IN CONJUNCTION WITH OTHER DIAGNOSTIC AND CLINICAL INFORMATION. Performing Lab: see note ML - [facility] LB ECG 12 lead Reviewed date:04/16/2024 04:53:42 PM Interpretation: Performing Lab: Notes/Report: Source Facility: [place] [address] [place] [address] Electrocardiograph Report Signed Patient: CONSTANTINO MENDIOLA MR#: [id number] : 1970 Acct:[id number] Age/Sex: 53 / F ADM Date: 04/13/24 Loc: ER Attending Dr: Ordering Physician: Aicha Wooten Date of Service: 04/13/24 Procedure(s): ECG 12 lead Accession Number(s): [id number] cc: [facility] Test Date: 2024-04-13 Pat Name: CONSTANTINO MENDIOLA Department: Room: - Gender: Female Medical Record Retrieval Specialist: : 1970 Requested By: JUDI YOUSSEF Order Number: [id number] Reading MD: JUAREZ CRUZ Measurements Intervals Letts Rate: 50 P: 54 SD: 160 QRS: 39 QRSD: 102 T: 54 QT: 484 QTc: 457 Interpretive Statements 1100 Sinus rhythm 8304 Long QTc interval 9150 abnormal ECG Compared to ECG 11/27/2023 14:34:20 Sinus bradycardia no longer present Electronically Signed On 04-13-2024 18:34:01 EDT by JUAREZ CRUZ Dictated By: Juarez Cruz D.O. Signed By: 04/13/24 1834 DD/ 1458 TD/TT: Transport Company Manager: [place] [address] Electrocardiograph Report Signed Patient: ARIELLE MENDIOLA MR#: [id number] : 1970 Acct:[id number] Age/Sex: 53 / F ADM Date: 04/13/24 Loc: ER Attending Dr: Ordering Physician: Aicha Wooten Date of Service: 04/13/24 Procedure(s): ECG 12 lead Accession Number(s): [id number] cc: [facility] Test Date: 2024-04-13 Pat Name: CONSTANTINO MENDIOLA Department: 66 Room: - Gender: Female Medical Record Retrieval Specialist: : 1970 Requ ested By: JUDI YOUSSEF Order Number: [id number] Reading MD: JUAREZ CRUZ Measurements Intervals Letts Rate: 50 P: 54 SD: 160 QRS: 39 QRSD: 102 T: 54 QT: 484 QTc: 457 Interpretive Statements 1100 Sinus rhythm 8304 Long QTc interval 9150 abnormal ECG Compared to ECG 11/27/2023 14:34:20 Sinus bradycardia no longer present Electronically Priya d On 04-13-2024 18:34:01 EDT by JUAREZ CRUZ Dictated By: Juarez Cruz D.O. Signed By: 04/13/24 1834 DD/ 1458 TD/TT: Transport Company Manager: CT abdomen pelvis wo con Reviewed date:04/16/2024 04:53:42 PM Interpretation: Performing Lab: Notes/Report: Source Facility: [place] [address] CT Scan Report Signed Patient: CONSTANTINO MENDIOLA MR#: [id number] : 1970 Acct:[id number] Age/Sex: 53 / F ADM Date: 04/13/24 Loc: ER Attending Dr: Ordering Physician: Aicha Wooten Date of Service: 04/13/24 Procedure(s): CT abdomen pelvis wo con Accession Number(s): [id number] cc: JUDI YOUSSEF [place] [address] Patient Name: CONSTANTINO MENDIOLA MRN: [id number] date: 1970 Sex: F Assigned Patient Location: ER Current Patient Location: ER Accession/Order Number: [id number] Exam Date: 04/13/2024 14:43 Report Date: 04/13/2024 [...] Signed By: 04/13/24 1532 DD/ 1530 TD/TT: Transport Company Manager: [place] [address] CT Scan Report Signed Patient: ARIELLE MENDIOLA MR#: [id number] : 1970 Acct:[id number] Age/Sex: 53 / F ADM Date: 04/13/24 Loc: ER Attending Dr: Ordering Physician: Aicha Wooten Date of Service: 04/13/24 Procedure(s): CT abd omen pelvis wo con Accession Number(s): [id number] cc: JUDI YOUSSEF The [address] [address] Patient Name: CONSTANTINO MENDIOLA MRN: [id number] date: 1970 Sex: F Assigned Patient Location: ER Current Patient Loca tion: ER Accession/Order Numb er: [id number] Exam Date: 04/13/2024 14:43 Report Date: 04/13/2024 [...] Signed By: 04/13/24 1532 DD/ 1530 TD/TT: Transport Company Manager: CBC AUTO DIFF Reviewed date:06/04/2024 09:49:37 AM Interpretation: Performing Lab: Notes/Report: [facility] , White Blood Count 6.5 4.0-11.0 [...] Performing Lab: see note ML - [facility] LB CT abdomen pelvis w con Reviewed date:06/04/2024 09:49:37 AM Interpretation: Performing Lab: Notes/Report: Source Facility: [facility] [place] [address] [place] [address] CT Scan Report Signed Patient: CONSTANTINO MENDIOLA MR#: [id number] : 1970 Acct:[id number] Age/Sex: 54 / F ADM Date: 06/01/24 Loc: ER Attending Dr: Ordering Physician: Kathrin Quiros Date of Service: 06/01/24 Procedure(s): CT abdomen pelvis w con Accession Number(s): [id number] cc: JUDI YOUSSEF [address] [address] Patient Name: CONSTANTINO MENDIOLA MRN: [id number] date: 1970 Sex: F Assigned Patient Location: ER Current Patient Location: ED.MAIN Accession/Order Number: [id number] Exam Date: 06/01/2024 22:21 Report Date: 06/01/2024 [...] M.D. Signed By: 06/01/242315 DD/ 12 TD/TT: Transport Company Manager: [place] [address] CT Scan Report Signed Patient: ARIELLE MENDIOLA MR#: [id number] : 1970 Acct:[id number] Age/Sex: 54 / F ADM Date: 06/01/24 Loc: ER Attending Dr: Ordering Physician: Kathrin Quiros Date of Service: 06/01/24 Procedure(s): CT abd omen pelvis w con Accession Number(s): [id number] cc: JUDI YOUSSEF [address] [address] Patient Name: CONSTANTINO MENDIOLA MRN: [id number] date: 1970 Sex: F Assigned Patient Location: ER Current Patient Loca tion: ED.MAIN Accession/Order Numb er: [id number] Exam Date: 06/01/2024 22:21 Report Date: 06/01/2024 [...] M.D. Signed By: 06/01/242315 DD/ 12 TD/TT: Transport Company Manager: MR [place] Reviewed date:07/10/2024 08:58:52 AM Interpretation: Performing Lab: Notes/Report: Source Facility: [facility] [place] [address] [place] [address] Magnetic Resonance Report Signed Patient: CONSTANTINO MENDIOLA MR#: [id number] : 1970 Acct:[id number] Age/Sex: 54 / F ADM Date: 07/09/24 Loc: MRI Attending Dr: Nichole HAQ Ordering Physician: Nichole Harden Date of Service: 07/09/24 Procedure(s): MR knee LT wo con Accession Number(s): [id number] cc: JUDI YOUSSEF ; Nichole Harden [place] [id number] Patient Name: CONSTANTINO MENDIOLA MRN: [id number] date: 1970 Sex: F Assigned Patient Location: MRI Current Patient Location: MRI Accession/Order Number: [id number] Exam Date: 07/09/2024 08:50 Report Date: 07/09/2024 [...] M.D. Signed By: 07/09/241652 DD/ 49 TD/TT: Transport Company Manager: [place] [address] Magnetic Resonance Report Signed Patient: ARIELLE MENDIOLA MR#: [id number] : 1970 Acct:[id number] Age/Sex: 54 / F ADM Date: 07/09/24 Loc: MRI Attending Dr: Blake Lerner Ordering Physician: Nichole Harden Date of Service: 07/09/24 Procedure(s): MR kne e LT wo con Accession Number(s): [id number] cc: JUDI YOUSSEF ; Nichole Harden [place] [address] Patient Name: CONSTANTINO MENDIOLA MRN: [id number] date: 1970 Sex: F Assigned Patient Location: MRI Current Patient Loca tion: MRI Accession/Order Numb er: [id number] Exam Date: 08:50 Report Date: 07/09/2024 16:50 [...] M.D. Signed By: 07/09/241652 DD/ 49 TD/TT: Transport Company Manager: CBC AUTO DIFF Reviewed date:08/28/2024 08:57:50 AM Interpretation: Performing Lab: Notes/Report: [facility] , White Blood Count 8.4 4.0-11.0 [...] Performing Lab: see note ML - [facility] LB PROF CHEM 8 (BAS METB) Reviewed date:08/28/2024 08:57:50 AM Interpretation: Performing Lab: Notes/Report: [facility] , Sodium 143 136-145 mmol/L Potassium [...] mg/dL Performing Lab: see note ML - [facility] LB Troponin I High Sensitivity Reviewed date:08/28/2024 08:57:50 AM Interpretation: Performing Lab: Notes/Report: [facility] , Troponin I High Sensitivity 38.7 4.0-51.3 pg/mL CUT-OFF POINTS HAVE BEEN ESTABLISHED BASED ON THE FOURTH UNIVERSAL DEFINITION OF MYOCARDIAL INFARCTION. THE UPPER REFERENCE LIMIT (URL) OF TROPONIN, DEFINED THE 99TH PERCENTILE OF cTnI DISTRIBUTION IN A REFERENCE POPULATION, HAS BEEN CONFIRMED THE DECISION THRESHOLD FOR TN DIAGNOSIS. 99TH PERCENTILE = 51.4 PG/ML NOTE: HIGH-SENSITIVITY TROPONIN ASSAY IS NOT INTENDED TO BE USED IN ISOLATION BUT SHOULD BE INTERPRETED IN CONJUNCTION WITH OTHER DIAGNOSTIC AND CLINICAL INFORMATION. Performing Lab: see note ML - [facility] LB ECG 12 lead Reviewed date:08/28/2024 08:57:50 AM Interpretation: Performing Lab: Notes/Report: Source Facility: [facility]-[address] [place] [address] [place] [address] Electrocardiograph Report Signed Patient: CONSTANTINO MENDIOLA MR#: [id number] : 1970 Acct:[id number] Age/Sex: 54 / F ADM Date: 08/28/24 Loc: ER Attending Dr: Ordering Physician: Zeferino Armas M.D. Date of Service: 08/28/24 Procedure(s): ECG 12 lead Accession Number(s): [id number] cc: [facility] Test Date: 2024-08-28 Pat Name: CONSTANTINO MENDIOLA Department: Room: - Gender: Female Medical Record Retrieval Specialist: : 1970 Requested By: JUDI YOUSSEF Order Number: [id number] Reading MD: JUAREZ CRUZ Measurements Intervals Letts Rate: 84 P: 37 SD: 140 QRS: 26 QRSD: 90 T: 45 QT: 392 QTc: 433 Interpretive Statements 1100 Sinus rhythm 9110 normal ECG Compared to ECG 04/13/2024 14:58:17 No significant changes Electronically Signed On 08-28-2024 6:55:52 EST by JUAREZ CRUZ Dictated By: Juarez Cruz D.O. Signed By: 08/28/24655 DD/ 0 TD/TT: Transport Company Manager: [place] [address] Electrocardiograph Report Signed Patient: ARIELLE MENDIOLA MR#: [id number] : 1970 Acct:[id number] Age/Sex: 54 / F ADM Date: 08/28/24 Loc: ER Attending Dr: Ordering Physician: Zeferino Armas M.D. Date of Service: 08/28/24 Procedure(s): ECG 12 lead Accession Number(s): [id number] cc: [facility] Test Date: 2024-08-28 Pat Name: CONSTANTINO MENDIOLA Department: 66 Room: - Gender: Female Medical Record Retrieval Specialist: : 1970 Requ ested By: JUDI YOUSSEF Order Number: [id number] Reading MD: JUAREZ CRUZ Measurements Intervals Letts Rate: 84 P: 37 SD: 140 QRS: 26 QRSD: 90 T: 45 QT: 392 QTc: 433 Interpretive Statements 1100 Sinus rhythm 9110 normal ECG Compared to ECG 04/13/2024 14:58:17 No significant changes Electronically Priya d On 08-28-2024 6:55:52 EST by JUAREZ CRUZ Dictated By: Juarez Cruz D.O. Signed By: 08/28/24655 DD/ 0 TD/TT: Transport Company Manager: XR KNEE LT 3V Reviewed date:06/25/2024 12:06:18 PM Interpretation: Performing Lab: Notes/Report: Source Facility: [place] [address] [place] [address] XRay Report Signed Patient: CONSTANTINO MENDIOLA MR#: [id number] : 1970 Acct:[id number] Age/Sex: 54 / F ADM Date: 06/24/24 Loc: ER Attending Dr: Ordering Physician: Zeferino Armas M.D. Date of Service: 06/24/24 Procedure(s): XR knee LT 3V Accession Number(s): [id number] cc: JUDI YOUSSEF ; Zeferino Armas M.D. [place] [address] Patient Name: CONSTANTINO MENDIOLA MRN: [id number] date: 1970 Sex: F Assigned Patient Location: ED.MAIN Current Patient Location: ER Accession/Order Number: [id number] Exam Date: 06/24/2024 01:30 Report Date: 06/24/2024 [...] compatible with [place]-Schlatter's disease. Electronically authenticated by: LEO LAWRENCE Date: 06/24/2024 05:07 Dictated By: Leo Lawrence M.D. Signed By: 06/24/24 0510 DD/ 0507 TD/TT: Transport Company Manager: [place] [address] XRay Report Signed Patient: ARIELLE MENDIOLA MR#: [id number] : 1970 Acct:[id number] Age/Sex: 54 / F ADM Date: 06/24/24 Loc: ER Attending Dr: Ordering Physician: Zeferino Armas M.D. Date of Service: 06/24/24 Procedure(s): XR kne e LT 3V Accession Number(s): [id number] cc: JUDI YOUSSEF ; Zeferino Armas M.D. [facility] [place] [address] Patient Name: CONSTANTINO MENDIOLA MRN: [facility]:[id number] date: 1970 Sex: F Assigned Patient Location: ED.MAIN Current Patient Loca tion: ER Accession/Order Numb er: [id number] Exam Date: 01:30 Report Date: 06/24/2024 05:07 [...] jacob at the tibial tubercle compatible with [place]-Schlatter's disease. Electronically authenticated by: LEO LAWRENCE Date: 06/24/2024 05:07 Dictated By: Leo Lawrence M.D. Signed By: 06/24/24 0510 DD/ 0507 TD/TT: Transport Company Manager: Troponin I High Sensitivity Reviewed date:06/04/2024 09:49:37 AM Interpretation: Performing Lab: Notes/Report: [facility] , Troponin I High Sensitivity 25.5 4.0-51.3 pg/mL CUT-OFF POINTS HAVE BEEN ESTABLISHED BASED ON THE FOURTH UNIVERSAL DEFINITION OF MYOCARDIAL INFARCTION. THE UPPER REFERENCE LIMIT (URL) OF TROPONIN, DEFINED THE 99TH PERCENTILE OF cTnI DISTRIBUTION IN A REFERENCE POPULATION, HAS BEEN CONFIRMED THE DECISION THRESHOLD FOR TN DIAGNOSIS. 99TH PERCENTILE = 51.4 PG/ML NOTE: HIGH-SENSITIVITY TROPONIN ASSAY IS NOT INTENDED TO BE USED IN ISOLATION BUT SHOULD BE INTERPRETED IN CONJUNCTION WITH OTHER DIAGNOSTIC AND CLINICAL INFORMATION. Performing Lab: see note ML - [facility] LB CBC AUTO DIFF Reviewed date:10/01/2024 12:35:56 PM Interpretation: Performing Lab: Notes/Report: [facility] , White Blood Count 9.4 4.0-11.0 [...] Performing Lab: see note ML - [facility] LB CPK Reviewed date:10/01/2024 12:35:56 PM Interpretation: Performing Lab: Notes/Report: [facility] , Creatine Kinase 36 26-192 U/L Performing Lab: see note - [facility] LB LACTATE or LACTIC ACID Reviewed date:10/01/2024 12:35:56 PM Interpretation: Performing Lab: Notes/Report: [facility] , Lactate/Lactic Acid 2.4 0.4-2.0 mmol/L RESULT S CALLED TO EUN LEIGH Performing Lab: see note ML - [facility] LB PROF 14(COMP METB) Reviewed date:10/01/2024 12:35:56 PM Interpretation: Performing Lab: Notes/Report: [facility] , Sodium 139 136-145 mmol/L Potassium [...] 0.9 Performing Lab: see note ML - [facility] LB Troponin I High Sensitivity Reviewed date:10/01/2024 12:35:56 PM Interpretation: Performing Lab: Notes/Report: [facility] , Troponin I High Sensitivity 29.6 4.0-51.3 pg/mL CUT-OFF POINTS HAVE BEEN ESTABLISHED BASED ON THE FOURTH UNIVERSAL DEFINITION OF MYOCARDIAL INFARCTION. THE UPPER REFERENCE LIMIT (URL) OF TROPONIN, DEFINED THE 99TH PERCENTILE OF cTnI DISTRIBUTION IN A REFERENCE POPULATION, HAS BEEN CONFIRMED THE DECISION THRESHOLD FOR TN DIAGNOSIS. 99TH PERCENTILE = 51.4 PG/ML NOTE: HIGH-SENSITIVITY TROPONIN ASSAY IS NOT INTENDED TO BE USED IN ISOLATION BUT SHOULD BE INTERPRETED IN CONJUNCTION WITH OTHER DIAGNOSTIC AND CLINICAL INFORMATION. Performing Lab: see note ML - [facility] LB PROF 14(COMP METB) Reviewed date:06/04/2024 09:49:37 AM Interpretation: Performing Lab: Notes/Report: [facility] , Sodium 140 136-145 mmol/L Potassium [...] 1.0 Performing Lab: see note ML - [facility] LB UA Micro, reflex to culture Reviewed date:10/01/2024 12:35:56 PM Interpretation: Performing Lab: Notes/Report: [facility] , Color Urine YELLOW YELLOW Clarity Urine CLEAR CLEAR Specific [place] Urine 1.025 1.005-1.025 pH Urine 6.0 5.0-9.0 [...] YES Performing Lab: see note ML - [facility] LB ECG 12 lead Reviewed date:10/01/2024 12:35:56 PM Interpretation: Performing Lab: Notes/Report: Source Facility: [place] [address] Electrocardiograph Report Signed Patient: CONSTANTINO MENDIOLA MR#: [id number] : 1970 Acct:[id number] Age/Sex: 54 / F ADM Date: 09/28/24 Loc: ER Attending Dr: Ordering Physician: Neo Wilson Date of Service: 09/28/24 Procedure(s): ECG 12 lead Accession Number(s): [id number] cc: [facility] Test Date: 2024-09-28 Pat Name: CONSTANTINO MENDIOLA Department: Room: - Gender: Female Medical Record Retrieval Specialist: : 1970 Requested By: 09 Order Number: [id number] Reading MD: LEO IZAGUIRRE Measurements Intervals Letts Rate: 49 P: 37 SD: 134 QRS: 19 QRSD: 98 T: 71 QT: 488 QTc: 457 Interpretive Statements 1130 Sinus bradycardia 9150 abnormal ECG Compared to ECG 08/28/2024 04:11:23 Left ventricular hypertrophy now present Early repolarization now present Sinus rhythm no longer present Electronically Signed On 10-01-2024 9:22:22 EST by LEO IZAGUIRRE Dictated By: Leo Izaguirre M.D. Signed By: 10/01/24921 DD/ 1525 TD/TT: Transport Company Manager: [place] [address] Electrocardiograph Report Signed Patient: ARIELLE MENDIOLA MR#: [id number] : 1970 Acct:[id number] Age/Sex: 54 / F ADM Date: 09/28/24 Loc: ER Attending Dr: Ordering Physician: Neo Wilson Date of Service: 09/28/24 Procedure(s): ECG 12 lead Accession Number(s): [id number] cc: [facility] Test Date: 2024-09-28 Pat Name: CONSTANTINO MENDIOLA Department: 66 Room: - Gender: Female Medical Record Retrieval Specialist: : 1970 Requ ested By: 0929 Order Number: [id number] Reading MD: LEO IZAGUIRRE Measurements Intervals Letts Rate: 49 P: 37 SD: 134 QRS: 19 QRSD: 98 T: 71 QT: 488 QTc: 457 Interpretive Statements 1130 Sinus bradycardia 9150 abnormal ECG Compared to ECG 08/28/2024 04:11:23 Left ventricular hypertrophy now present Early repolarization now present Sinus rhythm no long er present Electronically Priya d On 10-01-2024 9:22:22 EST by LEO IZAGUIRRE Dictated By: Yamile Izaguirre M.D. Signed By: 10/01/24 0922 DD/ 1525 TD/TT: Transport Company Manager: XR chest 1V Reviewed date:10/01/2024 12:35:56 PM Interpretation: Performing Lab: Notes/Report: Source Facility: [place] [address] XRay Report Signed Patient: CONSTANTINO MENDIOLA MR#: [id number] : 1970 Acct:[id number] Age/Sex: 54 / F ADM Date: 09/28/24 Loc: ER Attending Dr: Ordering Physician: Neo Wilson Date of Service: 09/28/24 Procedure(s): XR chest 1V Accession Number(s): [id number] cc: JUDI YOUSSEF ; Neo Wilson [place] [address] Patient Name: CONSTANTINO MENDIOLA MRN: [id number] date: 1970 Sex: F Assigned Patient Location: ER Current Patient Location: ER Accession/Order Number: [id number] Exam Date: 09/28/2024 15:24 Report Date: 09/28/2024 [...] Signed By: 09/28/24 1550 DD/ 1548 TD/TT: Transport Company Manager: [place] [address] XRay Report Signed Patient: ARIELLE MENDIOLA MR#: [id number] : 1970 Acct:[id number] Age/Sex: 54 / F ADM Date: 09/28/24 Loc: ER Attending Dr: Ordering Physician: Neo Wilson Date of Service: 09/28/24 Procedure(s): XR chest 1V Accession Number(s): [id number] cc: JUDI YOUSSEF ; Neo Wilson [place] [id number] Patient Name: CONSTANTINO MENDIOLA MRN: [id number] date: 1970 Sex: F Assigned Patient Location: ER Current Patient Loca tion: ER Accession/Order Numb er: [id number] Exam Date: 09/28/2024 15:24 Report Date: 09/28/2024 [...] Signed By: 09/28/24 1550 DD/ 1548 TD/TT: Transport Company Manager: LIPASE Reviewed date:06/04/2024 09:49:37 AM Interpretation: Performing Lab: Notes/Report: [facility] , Lipase 42.0 16.0-77.0 U/L Performing Lab: see note ML - [facility] LB LACTATE or LACTIC ACID Reviewed date:06/04/2024 09:49:37 AM Interpretation: Performing Lab: Notes/Report: [facility] , Lactate/Lactic Acid 1.1 0.4-2.0 mmol/L Performing Lab: see note ML - [facility] LB UA (CLEAN or CATCH) BPO SPECIALIST or M ICRO IF IND. Reviewed date:04/16/2024 04:53:42 PM Interpretation: Performing Lab: Notes/Report: [facility] , Color Urine LT. YELLOW YELLOW Clarity Urine CLEAR CLEAR Specific [place] Urine 1.020 1.005-1.025 pH Urine 5.5 5.0-9.0 Protein Urine NEGATIVE NEG/TRACE mg/dL Glucose Urine UA NEGATIVE NEGATIVE mg/dL Bilirubin Urine NEGATIVE NEGATIVE Ketones Urine NEGATIVE NEGATIVE mg/dL Blood Urine TRACE-I NEGATIVE Nitrite Urine NEGATIVE NEGATIVE Urobilinogen Urine 0.2 0.2-1.0 EU/dL Leukocyte Esterase Urine NEGATIVE NEGATIVE Urine Microscopic Indicated YES Performing Lab: see note ML - [facility] LB DRUG SCREEN RAPID (URINE) Reviewed date:12/18/2024 02:35:37 PM Interpretation: Performing Lab: Notes/Report: [facility] , Cannabinoid Screen Urine NEGATIVE NEGATIVE [...] ng/mL Performing Lab: see note ML - [facility] LB CBC AUTO DIFF Reviewed date:04/16/2024 04:53:42 PM Interpretation: Performing Lab: Notes/Report: [facility] , White Blood Count 7.7 4.0-11.0 [...] 3/uL Performing Lab: see note ML - [facility] LB PROF CHEM 8 (BAS METB) Reviewed date:04/06/2024 11:34:29 AM Interpretation: Performing Lab: Notes/Report: [facility] , Sodium 142 136-145 mmol/L Potassium 3.8 3.5-5.1 mmol/L Chloride 106 98-107 mmol/L Carbon Dioxide 29.1 21.0-32.0 mmol/L Anion Gap 10.7 Glucose 93 74-106 mg/dL Blood Urea Nitrogen 18.0 7.0-18.0 mg/dL Creatinine 0.82 0.55-1.02 mg/dL Estimated GFR ( [place] >60 >=60 Estimated GFR (Non- [place]ylar >60 >=60 BUN Creatinine Ratio 22.0 Calcium 9.2 8.5-10.1 mg/dL Performing Lab: see note ML - [facility] LB UA (CLEAN or CATCH) BPO SPECIALIST or M ICRO IF IND. Reviewed date:12/18/2024 02:35:37 PM Interpretation: Performing Lab: Notes/Report: [facility] , Color Urine LT. YELLOW YELLOW Clarity Urine CLEAR CLEAR Specific [place] Urine 1.020 1.005-1.025 pH Urine 6.0 5.0-9.0 Protein Urine NEGATIVE NEG/TRACE mg/dL Glucose Urine UA NEGATIVE NEGATIVE mg/dL Bilirubin Urine NEGATIVE NEGATIVE Ketones Urine NEGATIVE NEGATIVE mg/dL Blood Urine TRACE-I NEGATIVE Nitrite Urine NEGATIVE NEGATIVE Urobilinogen Urine 0.2 0.2-1.0 EU/dL Leukocyte Esterase Urine MODERATE NEGATIVE Urine Microscopic Indicated YES Performing Lab: see note ML - [facility] LB URINE MICROSCOPIC ONLY Reviewed date:12/18/2024 02:35:38 PM Interpretation: Performing Lab: Notes/Report: [facility] , WBC Urine 5-10 NONE SEEN #/HPF RBC Urine 2-5 0-2 #/HPF Bacteria Urine TRACE NONE SEEN #/HPF Mucus Urine TRACE NONE SEEN Squamous Epithelial Cell Urine FEW NONE/RARE #/LPF Crystals Seen? None Seen None Seen #/HPF Cast Seen? NONE SEEN NONE SEEN #/LPF Urine Culture Indicated [facility] Performing Lab: see note ML - [facility] LB CBC AUTO DIFF Reviewed date:01/10/2025 11:54:39 AM Interpretation: Performing Lab: Notes/Report: [facility] , White Blood Count 5.5 4.0-11.0 [...] Performing Lab: see note ML - [facility] LB Levetiracetam (Keppra), S Reviewed date:01/11/2025 12:15:06 PM Interpretation: Performing Lab: Notes/Report: [facility] , Levetiracetam (Keppra), S 25.1 10.0-40.0 ug/mL Performed at: - [facility] [address] [id number] Contract Associate: Suresh Carranza MD, Phone: [phone] Performing Lab: see note LC - [facility] LB PROF CHEM 8 (BAS METB) Reviewed date:01/21/2025 01:56:32 PM Interpretation: Performing Lab: Notes/Report: [facility] , Sodium 144 136-145 mmol/L Potassium [...] mg/dL Performing Lab: see note ML - [facility] LB CT abdomen pelvis w con Reviewed date:03/18/2025 09:31:59 AM Interpretation: Performing Lab: Notes/Report: Source Facility: [place] [address] CT Scan Report Signed Patient: CONSTANTINO MENDIOLA MR#: [id number] : 1970 Acct:[id number] Age/Sex: 54 / F ADM Date: 03/14/25 Loc: ER Attending Dr: Ordering Physician: He Lama Date of Service: 03/14/25 Procedure(s): CT abdomen pelvis w con Accession Number(s): [id number] cc: JUDI YOUSSEF [place] [address] Patient Name: CONSTANTINO MENDIOLA MRN: [id number] date: 1970 Sex: F Assigned Patient Location: ER Current Patient Location: ED.MAIN Accession/Order Number: [id number] Exam Date: 03/14/2025 20:59 Report Date: 03/14/2025 21:06 At the request of: HE HAQ Procedure: CT abdomen pelvis w con CT ABDOMEN AND PELVIS WITH INTRAVENOUS CONTRAST: CLINICAL HISTORY: abd pain and hx hiatal hernia and sbo COMPARISON: 12/18/2024 and 625 TECHNIQUE: Spiral images were obtained through the abdomen and pelvis following the administration of intravenous contrast. This CT exam was performed using one or more following dose reduction techniques: Automated exposure control, adjustment of the mA and/or kV according to patient size, or use of iterative reconstruction technique. FINDINGS: Lung Bases: [Lung bases are clear.] Organs:Ovoid lesion right kidney 2.5 cm in size noted this measures 40 HU and is indeterminate.[Otherwise the liver, spleen, pancreas, kidneys, unremarkable. Gallbladder absent. GI: Hiatal hernia with adjacent postsurgical changes. Cami-vt-ekrdkdey retained stool within colon. No bowel obstruction. No CT findings acute appendicitis.[ Pelvis:[Bladder is grossly unremarkable. Uterus absent. No adnexal mass.] Peritoneum/Retroperitoneum:No free air or free fluid. Aorta normal caliber. No adenopathy.[ Abd wall/Bones:Mild scattered degenerative change. Facet arthropathy.[ CT/CT abdomen pelvis w con IMPRESSION: Negative acute inflammatory process or bowel obstruction. 2.5 cm ovoid lesion involving the right kidney, indeterminate based on current examination. Consider dedicated renal mass protocol CT or MRI Impression dictated by: Surendra Casey M.D. 03/14/2025 9:06 PM Dictation Location: [place] [address] Electronically authenticated by: [id number] Y Date: 03/14/2025 21:06 Dictated By: Surendra Casey M.D. Signed By: 03/14/252108 DD/ 05 TD/TT: Transport Company Manager: [place] [address] CT Scan Report Signed Patient: ARIELLE MENDIOLA MR#: [id number] : 1970 Acct:[id number] Age/Sex: 54 / F ADM Date: 03/14/25 Loc: ER Attending Dr: Ordering Physician: He Lama Date of Service: 03/14/25 Procedure(s): CT abd omen pelvis w con Accession Number(s): [id number] cc: JUDI YOUSSEF [address] [address] Patient Name: CONSTANTINO MENDIOLA MRN: [id number] date: 1970 Sex: F Assigned Patient Location: ER Current Patient Loca tion: ED.MAIN Accession/Order Numb er: [id number] Exam Date: 03/14/2025 20:59 Report Date: 03/14/2025 21:06 At the request of: HE HAQ Procedure: CT abdome n pelvis w con CT ABDOMEN AND PELVI S WITH INTRAVENOUS CONTRAST: CLINICAL HISTORY: ab d pain and hx hiatal hernia and sbo COMPARISON: 5 and 625 TECHNIQUE: Spiral im ages were obtained through the abdomen and pelvis following the administration of intravenous contrast. This CT exam was performed using one or more following dose reduction techniques: Automated exposure control, adjustment of the mA and/or kV according to patient size, or use of iterative reconstruction technique. FINDINGS: Lung Bases: [Lung ba ses are clear.] Organs:Ovoid lesion right kidney 2.5 cm in size noted this measures 40 HU and is indeterminate.[Otherwise the liver, spleen, pancreas, kidneys, unremarkable. Gallbl adder absent. GI: Hiatal hernia wi th adjacent postsurgical changes. Lxmc-iv-sygbhjgw retained stool withi n colon. No bowel obstruction. No CT findings acute appendicitis.[ Pelvis:[Bladder is grossly unremarkable. Uterus absent. No adnexal mass.] Peritoneum/Retroperi toneu m:No free air or free fluid. Aorta normal caliber. No adenopathy.[ Abd wall/Bones:Mild scattered degenerative change. Facet arthropathy.[ C T/CT abdomen pelvis w con IMPRESSION: Negative acute inflammatory process or bowel obstruction. 2.5 cm ovoid lesion involving the right kidney, indeterminate based on current examination. Conside r dedicated renal mass protocol CT or MRI Impression dictated by: Surendra Casey M.D. 03/14/2025 9:06 PM Dictation Location: [place] [address] Electronically authenticated by: [id number] Y Date: 03/14/2025 21:06 Dictated By: Zoraida Casey M.D. Signed By: 03/14/252108 DD/ 05 TD/TT: Transport Company Manager: PROF Fonseca(COMP METB) Reviewed date:09/07/2024 11:32:59 AM Interpretation: Performing Lab: Notes/Report: [facility] , Sodium 143 136-145 mmol/L Potassium [...] 1.0 Performing Lab: see note ML - [facility] LB PROF CHEM 8 (BAS METB) Reviewed date:09/03/2024 08:18:59 AM Interpretation: Performing Lab: Notes/Report: [facility] , Sodium 141 136-145 mmol/L Potassium [...] mg/dL Performing Lab: see note ML - [facility] LB MAGNESIUM Reviewed date:09/03/2024 08:18:59 AM Interpretation: Performing Lab: Notes/Report: [facility] , Magnesium 1.9 1.8-2.4 mg/dL Performing Lab: see note ML - [facility] LB Troponin I High Sensitivity Reviewed date:08/28/2024 08:57:50 AM Interpretation: Performing Lab: Notes/Report: [facility] , Troponin I High Sensitivity 38.1 4.0-51.3 pg/mL CUT-OFF POINTS HAVE BEEN ESTABLISHED BASED ON THE FOURTH UNIVERSAL DEFINITION OF MYOCARDIAL INFARCTION. THE UPPER REFERENCE LIMIT (URL) OF TROPONIN, DEFINED THE 99TH PERCENTILE OF cTnI DISTRIBUTION IN A REFERENCE POPULATION, HAS BEEN CONFIRMED THE DECISION THRESHOLD FOR TN DIAGNOSIS. 99TH PERCENTILE = 51.4 PG/ML NOTE: HIGH-SENSITIVITY TROPONIN ASSAY IS NOT INTENDED TO BE USED IN ISOLATION BUT SHOULD BE INTERPRETED IN CONJUNCTION WITH OTHER DIAGNOSTIC AND CLINICAL INFORMATION. Performing Lab: see note ML - [facility] CT abdomen pelvis w con Reviewed date:08/28/2024 08:57:50 AM Interpretation: Performing Lab: Notes/Report: Source Facility: [place] [address] CT Scan Report Signed Patient: CONSTANTINO MENDIOLA MR#: [id number] : 1970 Acct:[id number] Age/Sex: 54 / F ADM Date: 08/28/24 Loc: ER Attending Dr: Ordering Physician: Zeferino Armas M.D. Date of Service: 08/28/24 Procedure(s): CT abdomen pelvis w con Accession Number(s): [id number] cc: JUDI YOUSSEF [place] [address] Patient Name: CONSTANTINO MENDIOLA MRN: [id number] date: 1970 Sex: F Assigned Patient Location: ER Current Patient Location: ER Accession/Order Number: [id number] Exam Date: 08/28/2024 05:55 Report Date: 08/28/2024 [...] transition point. No dilated small bowel loops. Wtvoc-ij-vdwxxvnt hiatal hernia. Esophagogastric tube tip terminates in [...] tube tip terminates in the distal stomach. Alvvz-wc-vwgxjlpa hiatal hernia. 3. Intermediate density lesion in the right renal cortex may correlate with a hemorrhagic/proteinaceous cyst. This could be further characterized with CT or MRI renal protocol. 4. Biliary ductal dilatation likely related to postcholecystectomy state. Recommend clinical correlation. Electronically authenticated by: MARQUES ROSEN Date: 08/28/2024 07:52 Dictated By: Marques Rosen M.D. Signed By: 08/28/24 0755 DD/ 0752 TD/TT: Transport Company Manager: The [place] [id number] CT Scan Report Signed Patient: ARIELLE MENDIOLA MR#: [id number] : 1970 Acct:[id number] Age/Sex: 54 / F ADM Date: 08/28/24 Loc: ER Attending Dr: Ordering Physician: Zeferino Armas M.D. Date of Service: 08/28/24 Procedure(s): CT abd omen pelvis w con Accession Number(s): [id number] cc: JUDI YOUSSEF [facility] [address] [place], [place] [address] Patient Name: CONSTANTINO MENDIOLA MRN: [id number] date: 1970 Sex: F Assigned Patient Location: ER Current Patient Loca tion: ER Accession/Order Numb er: [id number] Exam Date: 05:55 Report Date: 08/28/2024 07:52 [...] transition point. No dilated small bowel loops. Lnkbz-wf-kihsldte hiatal hernia. Esophagogast bertha tube tip terminates [...] tube tip terminates in the distal stomach. Xzjhf-zy-ovpksnsy hiatal hernia. 3. Intermediate dens ity lesion in the right renal cortex may correlate with a hemorrhagic/proteina ceous cyst. This could be further characterized with CT or MRI renal protocol. 4. Biliary ductal dilatation likely related to postcholecystectomy state. Recommend clinical correlation. Electronically authenticated by: MARQUES ROSEN Date: 08/28/2024 07:52 Dictated By: Nisha Rosen M.D. Signed By: 08/28/24 0755 DD/ 075 TD/TT: Transport Company Manager: XR acute abdomen series Reviewed date:08/28/2024 08:57:50 AM Interpretation: Performing Lab: Notes/Report: Source Facility: [place] [address] XRay Report Signed Patient: CONSTANTINO MENDIOLA MR#: [id number] : 1970 Acct:[id number] Age/Sex: 54 / F ADM Date: 08/28/24 Loc: ER Attending Dr: Ordering Physician: Zeferino Armas M.D. Date of Service: 08/28/24 Procedure(s): XR acute abdomen series Accession Number(s): [id number] cc: JUDI YOUSSEF ; Zeferino Armas M.D. The [place] [address] Patient Name: CONSTANTINO MENDIOLA MRN: [id number] date: 1970 Sex: F Assigned Patient Location: ER Current Patient Location: ER Accession/Order Number: [id number] Exam Date: 08/28/2024 05:00 Report Date: 08/28/2024 [...] D.O. Signed By: 08/28/2434 DD/ 1 TD/TT: Transport Company Manager: [place] [address] XRay Report Signed Patient: ARIELLE MENIDOLA MR#: [id number] : 1970 Acct:[id number] Age/Sex: 54 / F ADM Date: 08/28/24 Loc: ER Attending Dr: Ordering Physician: Zeferino Armas M.D. Date of Service: 08/28/24 Procedure(s): XR acu te abdomen series Accession Number(s): [id number] cc: JUDI YOUSSEF ; Zeferino Armas M.D. The [address] [id number] Patient Name: CONSTANTINO MENDIOLA MRN: [facility]:[id number] date: 1970 Sex: F Assigned Patient Location: ER Current Patient Loca tion: ER Accession/Order Numb er: [id number] Exam Date: 05:00 Report Date: 08/28/2024 05:32 [...] D.O. Signed By: 08/28/2434 DD/ 1 TD/TT: Transport Company Manager: XR chest 1V Reviewed date:08/28/2024 08:57:50 AM Interpretation: Performing Lab: Notes/Report: Source Facility: [place] [address] [address] XRay Report Signed Patient: CONSTANTINO MENDIOLA MR#: [id number] : 1970 Acct:[id number] Age/Sex: 54 / F ADM Date: 08/28/24 Loc: ER Attending Dr: Ordering Physician: Zeferino Armas M.D. Date of Service: 08/28/24 Procedure(s): XR chest 1V Accession Number(s): [id number] cc: JUDI YOUSSEF ; Zeferino Armas M.D. The [address] [address] Patient Name: CONSTANTINO MENDIOLA MRN: [id number] date: 1970 Sex: F Assigned Patient Location: ER Current Patient Location: ER Accession/Order Number: [id number] Exam Date: 08/28/2024 04:28 Report Date: 08/28/2024 [...] D.O. Signed By: 08/28/24529 DD/ 6 TD/TT: Transport Company Manager: The [address] [address] XRay Report Signed Patient: ARIELLE MENDIOLA MR#: [id number] : 1970 Acct:[id number] Age/Sex: 54 / F ADM Date: 08/28/24 Loc: ER Attending Dr: Ordering Physician: Zeferino Armas M.D. Date of Service: 08/28/24 Procedure(s): XR chest 1V Accession Number(s): [id number] cc: JUDI YOUSSEF ; Zeferino Armas M.D. [address] [address] Patient Name: CONSTANTINO MENIDOLA MRN: [id number] date: 1970 Sex: F Assigned Patient Location: ER Current Patient Loca tion: ER Accession/Order Numb er: [id number] Exam Date: 04:28 Report Date: 08/28/2024 05:27 [...] D.O. Signed By: 08/28/24529 DD/ 6 TD/TT: Transport Company Manager: [place] velma DILL Reviewed date:09/17/2024 10:44:15 AM Interpretation: Performing Lab: Notes/Report: Source Facility: [place] [address] Ultrasound Report Signed Patient: CONSTANTINO MENDIOLA MR#: [id number] : 1970 Acct:[id number] Age/Sex: 54 / F ADM Date: 09/14/24 Loc: US Attending Dr: JUDI YOUSSEF Ordering Physician: JUDI YOUSSEF Date of Service: 09/14/24 Procedure(s): US renal BI Accession Number(s): [id number] cc: JUDI YOUSSEF [place] [address] Patient Name: CONSTANTINO MENDIOLA MRN: [id number] date: 1970 Sex: F Assigned Patient Location: US Current Patient Location: US Accession/Order Number: [id number] Exam Date: 09/14/2024 08:40 Report Date: 09/14/2024 [...] M.D. Signed By: 09/14/24923 DD/ 0 TD/TT: Transport Company Manager: [address] [address] Ultrasound Report Signed Patient: ARIELLE MENDIOLA MR#: [id number] : 1970 Acct:[id number] Age/Sex: 54 / F ADM Date: 09/14/24 Loc: US Attending Dr: JUDI YOUSSEF Ordering Physician: JUDI YOUSSEF Date of Service: 09/14/24 Procedure(s): US renal BI Accession Number(s): [id number] cc: JUDI YOUSSEF [place] [address] Patient Name: CONSTANTINO MENDIOLA MRN: [facility]:[id number] date: 1970 Sex: F Assigned Patient Location: US Current Patient Loca tion: US Accession/Order Numb er: [id number] Exam Date: 09/14/2024 08:40 Report Date: 09/14/2024 [...] M.D. Signed By: 09/14/24923 DD/ 0 TD/TT: Transport Company Manager: VITAMIN D [address] [place] Reviewed date:11/27/2024 03:16:31 PM Interpretation: Performing Lab: Notes/Report: [facility] , Vitamin D 40.2 <20 ng/mL Vit D deficient 20-<30 ng/mL Vit D insufficient 30-100 ng/mL Vit D sufficient >100 ng/mL Potential Toxicity Performing Lab: see note - [facility] LB Vitamin B12 Reviewed date:11/28/2024 11:53:15 AM Interpretation: Performing Lab: Notes/Report: [facility] , Vitamin B12 [phone] pg/mL Performed at: - [facility] [id number] Contract Associate: Shawn Louis PhD, Phone: [phone] Performing Lab: see note - [facility] LB CBC AUTO DIFF Reviewed date:12/18/2024 02:35:37 PM Interpretation: Performing Lab: Notes/Report: [facility] , White Blood Count 5.7 4.0-11.0 [...] 3/uL Performing Lab: see note ML - [facility] LB LIPASE Reviewed date:12/18/2024 02:35:37 PM Interpretation: Performing Lab: Notes/Report: [facility] , Lipase 26.0 16.0-77.0 U/L Performing Lab: see note ML - [facility] LIVER PROFILE Reviewed date:12/18/2024 02:35:37 PM Interpretation: Performing Lab: Notes/Report: [facility] , Bilirubin Total 0.4 0.2-1.0 mg/dL Bilirubin Direct 0.1 0.0-0.2 mg/dL Aspartate Amino Transferase 16 15-37 U/L Alanine Aminotransferase 17 14-59 U/L Alkaline Phosphatase 145 46-116 U/L Total Protein 6.6 6.4-8.2 g/dL Albumin Level 3.4 3.4-5.0 g/dL Globulin 3.2 Albumin Globulin Ratio 1.1 Performing Lab: see note ML - [facility] LB PROF CHEM 8 (BAS METB) Reviewed date:12/18/2024 02:35:37 PM Interpretation: Performing Lab: Notes/Report: [facility] , Sodium 140 136-145 mmol/L Potassium [...] mg/dL Performing Lab: see note ML - [facility] LB RHEUMATOID FACTOR Reviewed date:12/20/2024 11:55:33 AM Interpretation: Performing Lab: Notes/Report: [facility] , Rheumatoid Factor (RF) <10.0 <14.0 IU/mL Performed at: - [facility] [id number] Contract Associate: Shawn Louis PhD, Phone: [phone] Performing Lab: see note - [facility] LB PEPPER w/Reflex Reviewed date:12/20/2024 11:55:33 AM Interpretation: Performing Lab: Notes/Report: [facility] , PEPPER Direct Negative Negative Performed at: - [facility] [address] [id number] Contract Associate: Shawn Louis PhD, Phone: [phone] Performing Lab: see note - [facility] LB Urine Culture - [facility] Reviewed date:12/21/2024 08:36:06 AM Interpretation: Performing Lab: Notes/Report: [facility] , Urine Culture - [facility] See Below For Report Urine Culture - [facility] Testing performed at [facility] O:STRAGA Isolated Urine Culture - [facility] Organism Comments Urine Culture - [facility] [address] [place] [address] Urine Culture - [facility] Testing performed at [facility] O:STRAGA Isolated Urine Culture - [facility] Organism Comments Urine Culture - [facility] See Below For Report Urine Culture - [facility] Testing performed at [facility] O:STRAGA Isolated Urine Culture - [facility] Organism Comments Urine Culture - [facility] See Below For Report Urine Culture - [facility] Testing performed at [facility] O:STRAGA Isolated Urine Culture - [facility] Organism Comments Urine Culture - [facility] 15,000 CFU/ML Urine Culture - [facility] Testing performed at [facility] O:STRAGA Isolated Urine Culture - [facility] Organism Comments Urine Culture - [facility] Urine Culture - [facility] Testing performed at [facility] O:STRAGA Isolated Urine Culture - [facility] Organism Comments Urine Culture - [facility] * This is a correct ed result. * Urine Culture - [facility] Testing performed at [facility] O:STRAGA Isolated Urine Culture - [facility] Organism Comments Urine Culture - [facility] Urine Culture - [facility] Testing performed at [facility] O:STRAGA Isolated Urine Culture - [facility] Organism Comments Urine Culture - [facility] A prior result that was reported as final has been changed. Urine Culture - [facility] Testing performed at [facility] O:STRAGA Isolated Urine Culture - [facility] Organism Comments Performing Lab: see note ML - [facility] LB SEE REPORT - [employer] Id information not found for OBX-specific creative services producer legend CT chest wo con Reviewed date:12/18/2024 02:35:38 PM Interpretation: Performing Lab: Notes/Report: Source Facility: [place] [address] CT Scan Report Signed Patient: CONSTANTINO MENDIOLA MR#: [id number] : 1970 Acct:[id number] Age/Sex: 54 / F ADM Date: 12/18/24 Loc: ER Attending Dr: Ordering Physician: Raymundo Pisano M.D. Date of Service: 12/18/24 Procedure(s): CT chest wo con Accession Number(s): [id number] cc: JUDI YOUSSEF [place] [address] Patient Name: CONSTANTINO MENDIOLA MRN: [id number] date: 1970 Sex: F Assigned Patient Location: ER Current Patient Location: ER Accession/Order Number: [id number] Exam Date: 12/18/2024 10:04 Report Date: 12/18/2024 [...] Columba Domínguez M.D.12/18/2024 10:25 AM Dictation Location: [place] [address] Electronically authenticated by: [id number] Y Date: 12/18/2024 10:25 Dictated By: Columba Domínguez M.D. Signed By: 12/18/24 1028 DD/ 1025 TD/TT: Transport Company Manager: [address] [address] [address] Scan Report Signed Patient: ARIELLE MENDIOLA MR#: [id number] : 1970 Acct:[id number] Age/Sex: 54 / F ADM Date: 12/18/24 Loc: ER Attending Dr: Ordering Physician: Raymundo Pisano M.D. Date of Service: 12/18/24 Procedure(s): CT zena[address] wo con Accession Number(s): [id number] cc: JUDI YOUSSEF [address] [address] Patient Name: CONSTANTINO MENDIOLA MRN: [id number] date: 1970 Sex: F Assigned Patient Location: ER Current Patient Loca tion: ER Accession/Order Numb er: [id number] Exam Date: 12/18/2024 10:04 Report Date: 12/18/2024 [...] Columba Domínguez M.D.12/18/2024 10:25 AM Dictation Location: [place] [address] Electronically authenticated by: [id number] Y Date: 12/18/2024 10:25 Dictated By: Columba Domínguez M.D. Signed By: 12/18/24 1028 DD/ 1025 TD/TT: Transport Company Manager: CT abdomen pelvis wo con Reviewed date:12/18/2024 02:35:38 PM Interpretation: Performing Lab: Notes/Report: Source Facility: [facility] [place] [address] [place] [address] CT Scan Report Signed Patient: CONSTANTINO MENDIOLA MR#: [id number] : 1970 Acct:[id number] Age/Sex: 54 / F ADM Date: 12/18/24 Loc: ER Attending Dr: Ordering Physician: Raymundo Pisano M.D. Date of Service: 12/18/24 Procedure(s): CT abdomen pelvis wo con Accession Number(s): [id number] cc: JUDI YOUSSEF [place] [address] Patient Name: CONSTANTINO MENDIOLA MRN: [facility]:[id number] date: 1970 Sex: F Assigned Patient Location: ER Current Patient Location: ER Accession/Order Number: [id number] Exam Date: 12/18/2024 10:04 Report Date: 12/18/2024 [...] Columba Domínguez M.D.12/18/2024 10:25 AM Dictation Location: [place] [address] Electronically authenticated by: [id number] Y Date: 12/18/2024 10:25 Dictated By: Columba Domínguez M.D. Signed By: 12/18/24 1027 DD/ 1025 TD/TT: Transport Company Manager: [place] [address] CT Scan Report Signed Patient: ARIELLE MENDIOLA MR#: [id number] : 1970 Acct:[id number] Age/Sex: 54 / F ADM Date: 12/18/24 Loc: ER Attending Dr: Ordering Physician: Raymundo Pisano M.D. Date of Service: 12/18/24 Procedure(s): CT abd omen pelvis wo con Accession Number(s): [id number] cc: JUDI YOUSSEF [place] [address] Patient Name: CONSTANTINO MENDIOLA MRN: [facility]:[id number] date: 1970 Sex: F Assigned Patient Location: ER Current Patient Loca tion: ER Accession/Order Numb er: [id number] Exam Date: 12/18/2024 10:04 Report Date: 12/18/2024 [...] Columba Domínguez M.D.12/18/2024 10:25 AM Dictation Location: [place] [address] Electronically authenticated by: [id number] Y Date: 12/18/2024 10:25 Dictated By: Columba Domínguez M.D. Signed By: 12/18/24 1027 DD/ 1025 TD/TT: Transport Company Manager: PROF Fonseca(COMP METB) Reviewed date:01/10/2025 11:54:39 AM Interpretation: Performing Lab: Notes/Report: [facility] , Sodium 143 136-145 mmol/L Potassium [...] Performing Lab: see note ML - [facility] LB CBC AUTO DIFF Reviewed date:01/21/2025 01:56:32 PM Interpretation: Performing Lab: Notes/Report: [facility] , White Blood Count 6.6 4.0-11.0 [...] Performing Lab: see note ML - [facility] LB Troponin I High Sensitivity Reviewed date:03/15/2025 01:33:25 PM Interpretation: Performing Lab: Notes/Report: [facility] , Troponin I High Sensitivity 29.0 4.0-51.3 pg/mL CUT-OFF POINTS HAVE BEEN ESTABLISHED BASED ON THE FOURTH UNIVERSAL DEFINITION OF MYOCARDIAL INFARCTION. THE UPPER REFERENCE LIMIT (URL) OF TROPONIN, DEFINED THE 99TH PERCENTILE OF cTnI DISTRIBUTION IN A REFERENCE POPULATION, HAS BEEN CONFIRMED THE DECISION THRESHOLD FOR TN DIAGNOSIS. 99TH PERCENTILE = 51.4 PG/ML NOTE: HIGH-SENSITIVITY TROPONIN ASSAY IS NOT INTENDED TO BE USED IN ISOLATION BUT SHOULD BE INTERPRETED IN CONJUNCTION WITH OTHER DIAGNOSTIC AND CLINICAL INFORMATION. Performing Lab: see note ML - [facility] LB Urine Culture, Routine Reviewed date:10/02/2024 10:29:54 [...] Status Urine Culture, [facility]ine [facility], Routine Organism: Escherichia coli. : O:ESCHCO Isolated Organism: 1.1 Antibiotic Interpretation RHONDA Status Urine Culture, Routine [address] [place], [place] [id number] Urine Culture, Routine Organism: Escherichia coli. : O:ESCHCO Isolated Organism: 1.1 Antibiotic Interpretation RHONDA Status Urine Culture, Routine Contract Associate: Devante Loius PhD, Phone: [phone] Urine Culture, Routine Organism: Escherichia coli. : [...] : O:ESCHCO Isolated Organism: 1.1 Antibiotic Interpretation RHODNA Status Urine Culture, Routine Imipenem S F [...] LC - [facility] LB SEE REPORT - [employer] Id information not found for OBX-specific creative services producer legend Reason For Referral Reason hypoglycemia Diagnosis 1 Hypoglycemia (E16.2) Referral Organization [facility] Medicine Referring Provider First Name Judi Referring Provider Last Name Regina Referring Provider Speciality Family Med melo Referred Provider Kulwant Hodge Referred Provider Specialty Endocrinolog y Referral Priority Routine Medications Medication SIG (Take, Route, Frequency, Duration) Notes Start Date End Date Status Daily Vitamin Active Promethazine HCl 25 MG 1 tablet as neede d Orally q6h for 30 days 12/05/2023 Active Aspirin 81 81 MG 1 tablet Orally Once a day Active MiraLax Active Pantoprazole Sodium 40 MG [...] pain Sublingual AC and HS 12/05/2023 Active Dicyclomine HCl 20 MG 1 tablet Orally Th ree times a day Active Ketorolac Tromethamine 10 MG 1 tablet wi th food or milk as needed Orally every 6 hrs Active Sertraline HCl 50 MG TAKE 1/2 TABLET MARY LY FOR 1 WEEK THEN INCREASE TO 1 TABLET DAILY for 90 Active Immunizations Vaccine Route Administration Date Status [...] Status W/U Status Risk Notes Problem Hypomagnesemia (250461838) Hypomagnesemia (E83.42) Active confirmed Problem 63639662 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 Problem 504261972 Functional dyspepsia (K30) Active confirmed Problem Gastroparesis (639499299) Gastroparesis (K31.84) Active confirmed Problem Gastroesophageal reflux disease (738901954) GERD (gastroesophageal reflux disease) (K21.9) Active confirmed Problem Hypertension (70311502) HTN (hypertension) (I10) Active confirmed Problem Palpitations (41327181) Palpitation (R00.2) Active confirmed Problem Tachycardia (0762558) Tachycardia (R00.0) Active confirmed Problem Depression (220338164) Depression (F32.9) Active confirmed Problem Degeneration of lumbar intervertebral disc (61082199) Lumbar degenerative disc disease (M51.36) Active confirmed Problem Urinary tract infectious disease (28378295) UTI (urinary tract infection) (N39.0) Active confirmed Problem Vitamin D deficiency (19156199) Vitamin D deficiency (E55.9) Active confirmed Problem Dysphagia (61011847) Dysphagia (R13.10) Active confirmed Problem Hypoglycemia (481979654) Hypoglycemia (E16.2) Active confirmed Problem Diverticulitis (646490326) Diverticulitis (K57.92) Active confirmed Problem Renal mass (980291638) Renal mass (N28.89) Active confirmed Problem Neutropenia (647431169) Neutropenia (D70.9) Active confirmed Problem Iron deficiency anemia (52955796) Anemia, iron deficiency (D50.9) Active confirmed Problem Gastro-esophageal reflux (789853310) Gastro-esophageal reflux (K21.9) Active confirmed Problem Ileus (592714223) Ileus (K56.7) Active confirme d Problem Malnutrition of moderate degree (Horner: 60% to less than 75% of standard weight) (88013396) Moderate protein malnutrition (E44.0) Active confirmed Problem Intestinal obstruction (57773549) SBO (small bowel obstruction) (K56.609) Active confirmed Vital Signs Blood pressure diastolic 72 mm Hg 03/19/2025 Height 67 in 03/19/2025 Blood pressure systolic 130 mm Hg 03/19/2025 Weight 188 lbs 03/19/2025 BMI 29.44 kg/m2 03/19/2025 Encounters Encounter Location Date Provider Diagnosis [facility] [address] [place] [address] 09/03/2024 Judi Regina Ileus K56.7 [facility] [address] [place] [address] 10/26/2024 Judi Youssef Seizure R56.9 [facility] [address] [place] [address] 12/21/2024 Judi Youssef Muscle strain T14.8X XA [facility] [address] [place] [address] 02/07/2025 Judi Youssef UTI (urinary tract infection) N39.0 ; HTN (hypertension) I10 and Functional dyspepsia K30 [facility] [address] [place] [address] 03/19/2025 Judi Youssef Fatigue R53.83 and Dyskinesia of esophagus K22.4 [facility] [address] [place] [address] 04/27/2024 Judi Youssef Hypoglycemia E16.2 [facility] [address] [place] [address] 11/27/2024 Judi Youssef [facility] [address] [place] [address] 11/28/2024 Judi Youssef [facility] [address] [place] [address] 01/09/2025 Judi Youssef [facility] [address] [place] [address] 01/10/2025 Judi Youssef [facility] [address] [place] [address] 03/18/2025 Judi Youssef Renal mass N28.89 [facility] [address] [place] [address] 07/19/2024 Judi Youssef Renal lesion N28.9 [facility] [address] [place] [address] 08/31/2024 Judi Youssef [facility] [address] [place] [address] 09/03/2024 Judi Youssef [facility] [address] [place] [address] 09/17/2024 Judi Youssef [facility] [address] [facility] [place] [address] 09/21/2024 Isaac Izaguirre [facility] [address] [facility] [place] [address] 11/19/2024 Judi Youssef Vitamin D deficiency E55.9 and Vitamin B12 deficiency E53.8 [facility] [address] [place] [address] 03/20/2024 Judi Youssef Assessments Encounter Date Diagnosis [...] 16 hr shifts fu if not improving 03/19/2025 Fatigue (ICD-10 - R53.83) continue with sleep study 02/07/2025 HTN (hypertension) (ICD-10 - I10) increase LIsinopril dose to 40 bp check 1-2 weeks 02/07/2025 UTI (urinary tract infection) (ICD-10 - N39.0) 07/19/2024 Renal lesion (ICD-10 - N28.9) 11/19/2024 Vitamin D deficiency (ICD-10 - E55.9) 03/18/2025 Renal mass (ICD-10 - N28.89) 11/19/2024 Vitamin B12 deficiency (ICD-10 - E53.8) 03/19/2025 Dyskinesia of esophagus (ICD-10 - K22.4) 02/07/2025 Functional dyspepsia (ICD-10 - K30) phenergan not helping reglan has helped in past 12/21/2024 Other has fu with cardiology and neurology, needs to call GI for fu states she will Plan Of Treatment Pending Test Test Name Order Date CMP (COMPLETE METABOLIC PANEL) CMP (COMPLETE METABOLIC PANEL) UA (URINALYSIS, COMPLETE) 08/03/2023 UA (URINALYSIS, COMPLETE) 11/07/2023 UA (URINALYSIS, COMPLETE) 02/07/2025 UA (URINALYSIS, COMPLETE) 10/18/2023 UA (URINALYSIS, COMPLETE) 12/30/2023 UA (URINALYSIS, COMPLETE) 01/04/2024 UA (URINALYSIS, COMPLETE) 01/20/2024 CULTURE, STOOL 12/05/2023 CULTURE, URINE w SENSITIVITY 12/30/2023 CULTURE, URINE w SENSITIVITY 01/20/2024 HEMOGLOBIN A1C (GLYCO) 12/30/2023 HEMOGLOBIN A1C (GLYCO) 03/19/2025 IRON, TOTAL 12/30/2023 IRON, TOTAL 03/19/2025 LIPID PANEL (CHOL/TRIG/HDL/LDL) 12/30/19 CBC WITH DIFF 12/30/2023 VITAMIN D, 25 LEVEL (TOTAL) 03/19/2025 VITAMIN D, 25 LEVEL (TOTAL) 12/30/2023 CT Urogram w/3D Rendering 08/03/2023 US Renals and Bladder 01/04/2024 MRI Lumbar Spine w/o contrast 12/30/2023 Urinalysis Microscopic 12/05/2023 Urinalysis Microscopic 08/03/2023 Urinalysis Microscopic 11/07/2023 Urine Culture 02/07/2025 Urine Culture 01/04/2024 Insulin Level 12/30/2023 C DIFF TOX PCR STOOL 12/05/2023 INFLUENZA A and B, NASAL/NASOPHARYNGEAL (PCR) 01/11/2024 Urine Culture, Routine 10/18/2023 Urine Culture, Routine 10/20/2023 .Urinalysis Microscopic Only 01/20/2024 SARS COVID-2 NASAL - PCR 01/11/2024 SARS COVID-2 NASAL - PCR 02/03/2023 CULTURE URINE 11/07/2023 CULTURE URINE 08/03/2023 PROF 14(COMP METB) 01/04/2024 STREPT SCREEN 02/03/2023 URINE MICROSCOPIC ONLY 01/04/2024 VITAMIN B12 11/19/2024 VITAMIN B12 03/19/2025 US KIDNEYS 07/19/2024 US KIDNEYS BLADDER 03/18/2025 XR LSPINE 2_3 VIEWS 11/21/2023 THYROID PANEL (T4/TSH/FREE T3) 4 THYROID PANEL (T4/TSH/FREE T3) 5 XR HIP LT 2 3V W PELVIS 11/02/2023 Holter Monitor - 3 days up to 14 days Vitamin D 11/19/2024 CMP (COMP MET HERNANDEZ) w/eGFR CKD-EPI 2024 CBC WITH DIFF 03/19/2025 Insurance Providers Payer Name Payer Address Payer Phone Subscriber Number Group Number Insured Name Patient Relationship to Insured Coverage Start Date Coverage End Date [employer]M ACCESS PPO PLUS LOCAL PLAN [address] [place] [address] [phone] [id number] Constantino Mendiola Self - patient is the insured 3 Medical (General) History Medical History History ICD Code Mitrovalve prolapse Acute diverticulitis K57.92 Dyskinesia of esophagus K22.4 Surgical History Surgery Date(Month/Year) Hernia Repair Hysterectomy Gallbladder Hospitalization History Reason Date(Month/Year) Bowel Obstruction- [facility] sent to [facility] 08/06 024 bowel obstruction 11/26 bowel obstruction 10/2023 Abd Pain, Vomiting 03/25/2023
--- OUTSIDE RECORDS SUMMARY | 2025-03-19 08:47 | XMS_ITS | Clinical Summary ---
Author Organization [facility] Address [address] [place] [address] Care Team Providers Care High Pressure Kettle Operator Name Role Phone Unallocated, Noms Provider Primary Care Provi christine Judi Tapia MD Unavailable [phone] Nikki Ayoub Unavailable Allergies Active Allergy [...] Department Care Team Description 01/16/2025 Telephone [place] [address] [address] Marbin Wong ARRT Sleep Study Referral 01/07/2025 2:20 PM EDT Office Visit [place] [address] [phone] Nikki Ayoub PA Seizure (HCC) (Primary Dx); History of obstructive sleep apnea; Migraine without aura and without status migrainosus, not intractable ; Dizziness 01/07/2025 Bamboo flowsheet [place] [address] [phone] Nikki Ayoub PA from Last [...] Last 3 Months Insurance BCBS Care Teams High Pressure Kettle Operator Relationship Specialty Start Date End Date Unallocated, [facility] [place], [address] [place] [address] PCP - General 04/25/23 Judi Tapia MD [address] [place] [address] [phone] Referring Physician Family Medicine 04/25/23 Nikki Ayoub PA [address] [place] [address] [phone] Physician Personal Assistant Neurology 11/26/24
[2025-03-19 09:07] LABS: Hematocrit 38.8 % (36.0-48.0); Hemoglobin 12.4 g/dL (12.0-16.0); Immature Granulocytes Abs Auto 0.01 10^3/uL (0.00-0.03); Immature Granulocytes Pct Auto 0.2 % (0.0-0.5); Lymphocytes Absolute Auto 1.8 10^3/uL (1.2-3.8); Mean Corpuscular HGB Conc 32.0 g/dL (29.9-35.2); Mean Corpuscular Hemoglobin 28.8 pg (26.7-34.0); Mean Corpuscular Volume 90.2 fL (81.0-99.0); Platelet Count 353 10^3/uL (150-450); Red Blood Count 4.30 10^6/uL (4.20-5.40); White Blood Count 5.3 10^3/uL (4.0-11.0)
[2025-03-19 09:35] LABS: Alanine Aminotransferase 29 U/L (14-59); Albumin Globulin Ratio 1.1; Albumin Level 3.6 g/dL (3.4-5.0); Alkaline Phosphatase 151 U/L (46-116); Anion Gap 13.9; Aspartate Amino Transferase 17 U/L (15-37); Blood Urea Nitrogen 17.0 mg/dL (7.0-18.0); Calcium 9.2 mg/dL (8.5-10.1); Carbon Dioxide 28.2 mmol/L (21.0-32.0); Chloride 107 mmol/L (98-107); Estimated GFR (African America >60 (>=60 mL/min/1.73m^2); Estimated GFR (Non-African Ame >60 (>=60 mL/min/1.73m^2); Free T3 2.60 pg/mL (2.18-3.98); Globulin 3.4 g/dL; Glucose 106 mg/dL (74-106); Potassium 4.1 mmol/L (3.5-5.1); Sodium 145 mmol/L (136-145); Thyroid Stimulating Hormone 8.406 uIU/mL (0.358-3.740); Total Protein 7.0 g/dL (6.4-8.2)
[2025-03-19 10:44] LABS: Iron 50.0 ug/dL (50.0-170.0)
[2025-03-20 04:07] LABS: Vitamin B12 222 pg/mL (232-1245)
== END 2025-03-19 08:41 | disposition home or self-care (01) ==
PROVIDERS: PCP Nurse Practitioner Family; Visit Provider Nurse Practitioner Family
DX: R53.83 Other fatigue (principal)
CPT/HCPCS: 36415; 80053; 82306; 82607; 83036; 83540; 84436; 84443; 84481; 85025

== ENCOUNTER 2025-03-19 19:49 | Outpatient (OUT) | payer BC, SELFPAY ==
--- OUTSIDE RECORDS SUMMARY | 2025-03-18 08:45 | XMS_ITS | Encounter Summary ---
Author Organization [facility] Address [address] [place] [address] Care Team Providers Care Facility Maintenance Worker Name Role Phone Judi Tapia HANDHOLE MACHINE OPERATOR - RETAIL FIELD REPRESENTATIVE Primary Care Provide r Encounter Details Date Type Department Care Team (Late st Contact Info) Description 03/18/2025 8:45 AM EDT Hospital Encounter [facility] Pre-Admit Testing [address] [place] [address] Arrived Social History Tobacco Use Types Packs/Day Years Used Date Smoking Tobacco: Former Cigarettes Smokeless Tobacco: Never Alcohol Use Standard Drinks/Week Comments Yes 0 (1 standard drink = 0.6 oz pur e alcohol) Rare [facility] Utilities Answer Date Recorded In the past 12 months has [employer] electric, gas, oil, or water company threatened [...] lotion, powder, jewelry, piercings, perfume, makeup, nail vietnamese, hair accessories, or hair spray on the day of surgery. Wear loose comfortable clothing. Leave your valuables at home but bring a payment source for any after-surgery prescriptions you plan to fill at [facility]. Bring a storage case for any glasses/contacts. An adult who is responsible for you MUST remain in the hospital and drive you home and should be with you for the first 24 hours after surgery. The Day of Surgery: Arrive at [facility] Surgery Entrance at the time directed by your surgeon and check in at the desk. If you have a living will or healthcare power of managing attorney, please bring a copy. You will be taken to the pre-op holding area where you will be prepared for surgery. A physical assessment will be performed by a nurse practitioner or lead housekeeper. Your IV will be started and you [...] AM EDT Hospital Encounter [facility] [address] [place] [address] Jose Miguel Lucero MD [address] [place] [address] 04/01/2025 11:45 AM EDT - 04/01/2025 12:00 PM EDT Surgery [facility] [address] [place] [address] Jose Miguel Lucero MD [address] [place] [address] ESOPHAGOGASTRODUODENOSCOPY BIOPSY 04/19/2025 12:30 PM EDT Hospital Encounter [facility] [address] [place] [address] Jose Miguel Lucero MD [address] [place] [address] 04/19/2025 12:30 PM EDT - 04/19/2025 1:00 PM EDT Surgery [facility] [address] [place] [address] Jose Miguel Lucero MD [address] [place] [address] COLORECTAL CANCER SCREENING, NOT HIGH RISK Scheduled Procedures Name Priority Associated Diagnoses Date/Ti me ESOPHAGOGASTRODUODENOSCOPY BIOPSY Gastroesophageal reflux disease, unspecified whether esophagitis present 04/01/2025 11:45 AM EDT COLORECTAL CANCER SCREENING, NOT HIGH RISK Dysphagia, unspecified Screening for colon cancer 04/19/2025 12:30 PM EDT documented as of this encounter Visit Diagnoses Not on filedocumented in this encounter Care Teams Facility Maintenance Worker Relationship Specialty Start Date End Date Judi Tapia, HANDHOLE MACHINE OPERATOR - RETAIL FIELD REPRESENTATIVE [address] [place], [place] [phone] PCP - General 08/29/24 documented as of this encounter
--- OUTSIDE RECORDS SUMMARY | 2025-03-19 04:58 | XMS_ITS ---
Author Organization [facility] in [place] Address [address] [place] [address] Care Team Providers Care Women'S Ministry Director Name Role Phone Judi Tapia Primary Care Provider [phone] Reason For Referral Diagnosis 1 Abdominal pain (R10. 9) Referral Organization [facility] Referring Provider First Name Judi Referring Provider Last Name Regina Referring Provider Speciality Family Med icine Referred Provider Anai Forbes Referred Provider Specialty Gastroentero logy Referral Priority Routine REASON FOR VISIT gi Encounters Encounter Location Date Provider Diagnosis [facility] [address] [place] [address] 03/19/2025 Judi Tapia Plan Of Treatment Referrals Referral Date Details 03/19/2025 03/19/2025Anai Sa Progress Notes * WALKER OlyDOB:[birth year] (54 yo F)Acc No.[id number]:03/19/2025 Patient: Oly JONES :1970 A ge:54 Y S ex:Female Address:[facility] [place], [address] Subjective: * Chief Complaints: * G i * Medical History: * Surgical History: * Hospitalization/Major Diagno stic Procedure: * Medications: Objective: * Vitals: * Physical Examination: Assessment: Plan: * Treatment: * Procedure Codes: * true * Date: Generated for Printi ng/Faxing/eTransmitting on: 0 03/19/2025 07:50 PM EDT Consultation Request Notes Referral Date Referring Provider Referred Provider Not es 03/19/2025 Judi Tapia Maher
--- OUTSIDE RECORDS SUMMARY | 2025-03-19 19:50 | XMS_ITS | Encounter Summary ---
Author Organization [facility] Address [facility] [place] [address] Care Team Providers Care Radiologic Technology Instructor Name Role Phone Joel Alejandra DO Primary Care Provider [phone] Rafa Rangel Unavailable [phone] Source Comments In the event this information is protected by the Federal Confidentiality of Alcohol and Drug AbusePatient Records regulations: The Federal rules restrict any use of the information to criminally investigate or prosecute any alcohol or drug abuse patient.[facility] Encounter Details Date Type Department Care Team (Late st Contact Info) Description 03/05/2025 [place] [address] Provider, Ccf Sign up to manage your [...] lower risk 8 05/06/2023 Data from: https://www.neighborhoodatlas.medicine.[facility]/. Last address used for calculation [address] [...] on filedocumented in this encounter Care Teams Radiologic Technology Instructor Relationship Specialty Start Date End Date Joel Alejandra DO PCP - General Family Medicine 04/26/18 Rafa Rangel [address] [place] [phone] Referring General Surgery 04/26/18 documented as of this encounter
--- OUTSIDE RECORDS SUMMARY | 2025-03-19 19:50 | XMS_ITS | Clinical Summary ---
Author Organization [facility] Address [address] [place] [address] Care Team Providers Care Squirt Machine Operator Name Role Phone Judi Tapia CLIENT SERVICE REPRESENTATIVE - CLOD PULLER Primary Care Provide r Allergies Active Allergy [...] EDT Hospital Encounter [facility] Pre-Admit [facility] [address] [place] [address] Arrived 03/18/2025 Travel 03/14/2025 Prep for Procedure [facility] [address] [place] [phone] Jose Miguel Lucero MD 02/26/2025 1:30 PM EDT [facility] [address] [place] [address] [phone] Jose Miguel Lucero MD Dysphagia, unspecified type (Primary Dx); Generalized abdominal pain; Screen for colon cancer 02/26/2025 Telephone [facility] [address] [place] [address] [phone] Jose Miguel Lucero MD Procedure (EGD/colon) 02/26/2025 Prep for Procedure [facility] [address] [place] [address] [phone] Jose Miguel Lucero MD Screening for colon cancer 02/11/2025 Telephone [facility] [address] [facility] [address] [place] [address] Jose Miguel Lucero MD Appointment Requested from Last 3 Months Social History Tobacco Use Types Packs/Day Years Used Date Smoking Tobacco: Former Cigarettes Smokeless Tobacco: Never Tobacco Cessation:Counseling Given: Not Answered Alcohol Use Standard Drinks/Week Comments Yes 0 (1 standard drink = 0.6 oz pur e alcohol) Rare [facility] Utilities Answer Date Recorded In the past 12 months has th e [employer], gas, oil, or water [employer] threatened to shut off services in your [...] any time in the past 12 m [facility], were you homeless or living in a fdc (including now)? No 08/28/2024 Food Insecurity Answer [...] AM EDT Hospital Encounter [facility] [address] [place] [address] Jose Miguel Lucero MD [address] [facility] [address] [place] [address] 04/01/2025 11:45 AM EDT - 04/01/2025 12:00 PM EDT Surgery [facility] [address] [place] [address] Jose Miguel Lucero MD [address] [facility] [address] [place] [address] ESOPHAGOGASTRODUODENOSCOPY BIOPSY 04/19/2025 12:30 PM EDT Hospital Encounter [facility] [address] [place] [address] Jose Miguel Lucero MD [address] [facility] [address] [place] [address] 04/19/2025 12:30 PM EDT - 04/19/2025 1:00 PM EDT Surgery [facility] [address] [place] [address] Jose Miguel Lucero MD [address] [facility] [address] [place] [address] COLORECTAL CANCER SCREENING, NOT HIGH RISK Scheduled [...] patient's age to complete this topic Insurance [place] BCBS Advance Directives * Full Code (Latest Code Status on File) Date Activated Date Inactivated Comments 08/28/2024 3:16 PM 08/30/2024 6:26 PM Care Teams Squirt Machine Operator Relationship Specialty Start Date End Date Judi Tapia, ANDREEA - CLOD PULLER [address] [place] [address] PCP - General 08/29/24
--- OUTSIDE RECORDS SUMMARY | 2025-03-19 19:50 | XMS_ITS | Clinical Summary ---
Author Organization [facility] Address [address] [place] [address] Care Team Providers Care Indian Blanket Weaver Name Role Phone Ny Joel Onel Primary Care Provider [phone] Rafa Rangel Unavailable Allergies Active Allergy Reactions Criticality Noted [...] Description 03/05/2025 [place] [address] Provider, Ccf Sign up to manage your [...] is lower risk 8 05/06/2023 Data from: https://www.neighborhoodatlas.medicine.[place].edu/. Last address used for calculation [address] [...] 06/09/2022 Insurance BLUE ACCESS PPO Care Teams Indian Blanket Weaver Relationship Specialty Start Date End Date Joel Alejandra DO PCP - General Family Medicine 04/26/18 Rafa Rangel [address] [place] [phone] Referring General Surgery 04/26/18
--- OUTSIDE RECORDS SUMMARY | 2025-03-19 19:51 | XMS_ITS | Encounter Summary ---
Author Organization [facility] Address [address] [place] [address] Care Team Providers Care Buffing Wheel Presser Name Role Phone Judi Tapia FOURTH HAND - PATHOLOGICAL TECHNICIAN Primary Care Provide r Encounter Details Date Type Department Care Team (Latest Contact Info) Description 03/18/2025 Travel Social History Tobacco Use Types Packs/Day Years Used Date Smoking Tobacco: Former Cigarettes Smokeless Tobacco: Never Alcohol Use Standard Drinks/Week Comments Yes 0 (1 standard drink = 0.6 oz pur e alcohol) Rare [facility] Utilities Answer Date Recorded In the past 12 months has th e [employer], gas, oil, or water [employer] threatened to shut off services in your [...] AM EDT Hospital Encounter [facility] [address] [place] [address] Jose Miguel Lucero MD [address] [facility] [address] [place] [address] 04/01/2025 11:45 AM EDT - 04/01/2025 12:00 PM EDT Surgery [facility] [address] [place] [address] Jose Miguel Lucero MD [address] [facility] [address] [place] [address] ESOPHAGOGASTRODUODENOSCOPY BIOPSY 04/19/2025 12:30 PM EDT Hospital Encounter [facility] [address] [place] [address] Jose Miguel Lucero MD [address] [place] [address] 04/19/2025 12:30 PM EDT - 04/19/2025 1:00 PM EDT Surgery [facility] [address] [place] [address] Jose Miguel Lucero MD [address] [facility] [address] [place] [address] COLORECTAL CANCER SCREENING, NOT HIGH RISK Scheduled Procedures Name Priority Associated Diagnoses Date/Ti me ESOPHAGOGASTRODUODENOSCOPY BIOPSY Gastroesophageal reflux disease, unspecified whether esophagitis present 04/01/2025 11:45 AM EDT COLORECTAL CANCER SCREENING, NOT HIGH RISK Dysphagia, unspecified Screening for colon cancer 04/19/2025 12:30 PM EDT documented as of this encounter Visit Diagnoses Not on filedocumented in this encounter Care Teams Buffing Wheel Presser Relationship Specialty Start Date End Date Judi Tapia, FOURTH HAND - PATHOLOGICAL TECHNICIAN [address] [place] [id number] PCP - General 08/29/24 documented as of this encounter
--- OUTSIDE RECORDS SUMMARY | 2025-03-19 19:51 | XMS_ITS | Encounter Summary ---
Author Organization [employer] [employer] Address [id number] [address] [place] [address] Care Team Providers Care Packer And Carry Out Name Role Phone Judi Tapia HOTEL NIGHT AUDITOR-COMPUTER SYSTEMS SECURITY ADMINISTRATOR Primary Care Provider Reason for Referral * Diagnostic Imaging (Routine) - Closed Specialty Diagnoses / Procedures Referred By Eileen mueller Referred To Contact Radiology Diagnoses Pain Procedures CT abdomen and pelvis without contrast [facility] [employer] [facility] [place] [address] Phone: tel: fax: Referral ID Status Reason Start Date Expiration Date Visits Re quested Visits Authorized [id number] Closed 12/01/2023 11/30/2024 1 1 Encounter Details Date Type Department Care Team (Late st Contact Info) Description 12/01/2023 Orders Only [facility] [employer] [facility] [place] [address] Transcribe, Orders Support User Pain [...] ORDER CASSANDRA Final Result Performing Organization Address [facility] Co de Phone Number MANUALLY TRANSCRIBED RESULTS * Fluoroscopy esophagus (11/28/2023 8:20 AM EDT) us Scanning Provider External IMG FLUOROSCOPY ORDER CASSANDRA Final Result Performing Organization Address [facility] Co de Phone Number MANUALLY TRANSCRIBED RESULTS * Multiple labs (11/28/2023) us Not In System Ref Prov [place] IMAGING Edited Re sult - Final Performing Organization Address [facility] Co de Phone Number [...] pain documented in this encounter Care Teams Packer And Carry Out Relationship Specialty Start Date End Date Judi Tapia APRN-COMPUTER SYSTEMS SECURITY ADMINISTRATOR [address] [place] [phone] PCP - General Family Medicine 12/01/23 documented as of this encounter
--- OUTSIDE RECORDS SUMMARY | 2025-03-19 19:51 | XMS_ITS | Encounter Summary ---
Author Organization [facility] Address [address] [place] [address] Care Team Providers Care Skein Tier Name Role Phone Joel Alejandra DO Primary Care Provider [phone] Rafa Rangel Unavailable [phone] Source Comments In the event this information is protected by the Federal Confidentiality of Alcohol and Drug AbusePatient Records regulations: The Federal rules restrict any use of the information to criminally investigate or prosecute any alcohol or drug abuse patient.[facility] Encounter Details Date Type Department Care Team (Late st Contact Info) Description 06/28/2023 Patient Msg General Surgery [address] [place] [phone] Evelyn [place]ger, RN EGD Social History Tobacco Use Types [...] is lower risk 8 05/06/2023 Data from: https://www.neighborhoodatlas.medicine.[facility].edu/. Last address used for calculation [...] on filedocumented in this encounter Care Teams Skein Tier Relationship Specialty Start Date End Date Joel Alejandra DO PCP - General Family Medicine 04/26/18 Rafa Rangel [address] [place] [phone] Referring General Surgery 04/26/18 documented as of this encounter
--- OUTSIDE RECORDS SUMMARY | 2025-03-19 19:51 | XMS_ITS | Encounter Summary ---
Author Organization [facility] Address [address] [place] [address] Care Team Providers Care Manager Contact Name Role Phone Judi Tapia INTERIOR DESIGN ASSISTANT - FIELD MARKETING TEAM LEADER Primary Care Provide r Reason for Visit * Reason Onset Date Comments Procedure 02/26/2025 EGD/colon Encounter Details Date Type Department Care Team ([facility] Contact Info) Description 02/26/2025 Telephone [facility] [address] [facility] [address] [place] [address] Jose Miguel Lucero MD [address] [facility] [address] [place] [id number] Procedure (EGD/colon) Social History Tobacco Use Types Packs/Day Years Used Date Smoking Tobacco: Former Cigarettes Smokeless Tobacco: Never Alcohol Use Standard Drinks/Week Comments Yes 0 (1 standard drink = 0.6 oz pur e alcohol) Rare [place] Utilities Answer Date Recorded In the past 12 months has [employer], gas, oil, or water company threatened to [...] any time in the past 12 m [facility], were you homeless or living in a skilled nursing (including now)? No 08/28/2024 Food Insecurity Answer [...] AM EDT Hospital Encounter [facility] [address] [place] [address] Jose Miguel Lucero MD [address] [facility] [address] [place] [id number] 04/01/2025 11:45 AM EDT - 04/01/2025 12:00 PM EDT Surgery [facility] [address] [place] [address] Jose Miguel Lucero MD [address] [facility] [address] [place] [address] ESOPHAGOGASTRODUODENOSCOPY BIOPSY 04/19/2025 12:30 PM EDT Hospital Encounter [facility] [address] [place] [address] Jose Miguel Lucero MD [address] [address] 04/19/2025 12:30 PM EDT - 04/19/2025 1:00 PM EDT Surgery [facility] [address] [place] [address] Jose Miguel Lucero MD [address] [address] COLORECTAL CANCER SCREENING, NOT HIGH RISK Scheduled Procedures Name Priority Associated Diagnoses Date/Ti me ESOPHAGOGASTRODUODENOSCOPY BIOPSY Gastroesophageal reflux disease, unspecified whether esophagitis present 04/01/2025 11:45 AM EDT COLORECTAL CANCER SCREENING, NOT HIGH RISK Dysphagia, unspecified Screening for colon cancer 04/19/2025 12:30 PM EDT documented as of this encounter Visit Diagnoses Not on filedocumented in this encounter Care Teams Manager Contact Relationship Specialty Start Date End Date Judi Tapia, INTERIOR DESIGN ASSISTANT - FIELD MARKETING TEAM LEADER [facility] [place] [address] PCP - General 08/29/24 documented as of this encounter
--- OUTSIDE RECORDS SUMMARY | 2025-03-19 19:51 | XMS_ITS | Encounter Summary ---
Author Organization [facility] Address [address] [place] [address] Care Team Providers Care Manager Intel Name Role Phone Joel Alejandra Primary Care Provider [phone] Rafa Rangel Unavailable [phone] Source Comments In the event this information is protected by the Federal Confidentiality of Alcohol and Drug AbusePatient Records regulations: The Federal rules restrict any use of the information to criminally investigate or prosecute any alcohol or drug abuse patient.[facility] Encounter Details Date Type Department Care Team (Late st Contact Info) Description 06/16/2023 Patient Msg General Surgery [address] [phone] Provider, [facility]cf Upcoming appointments Social History Tobacco [...] is lower risk 8 05/06/2023 Data from: https://www.neighborhoodatlas.medicine.[facility].edu/. Last address used for calculation [...] filedocumented in this encounter Care Teams Manager Intel Relationship Specialty Start Date End Date Joel Alejandra DO PCP - General Family Medicine 04/26/18 Rafa Rangel [address] [place] [phone] Referring General Surgery 04/26/18 documented as of this encounter
--- OUTSIDE RECORDS SUMMARY | 2025-03-19 19:51 | XMS_ITS | Clinical Summary ---
Author Organization [facility] Address [id number] [facility] [place] [address] Care Team Providers Care Boiler Maker Name Role Phone Judi Tapia PLYWOOD FACTORY WORKER-RESERVATION AGENT Primary Care Provider Social History Tobacco Use [...] Not on file Insurance [employer] Care Teams Boiler Maker Relationship Specialty Start Date End Date Judi Tapia, PLYWOOD FACTORY WORKER-RESERVATION AGENT [address] [place] [phone] PCP - General Family Medicine 12/01/23
--- OUTSIDE RECORDS SUMMARY | 2025-03-19 19:51 | XMS_ITS | Encounter Summary ---
Author Organization [facility] Address [address] [place] [address] Care Team Providers Care Enamel Dipper Name Role Phone Judi Tapia DIRECTOR GAME - CARPET REPAIRER Primary Care Provide r Encounter Details Date Type Department Care Team ([facility] Contact Info) Description 03/14/2025 Prep for Procedure [facility] Gastroenterology [address] [facility] [address] [place] [phone] Jose Miguel Lucero MD [address] [facility] [address] [place] [address] Social History Tobacco Use Types Packs/Day Years Used Date Smoking Tobacco: Former Cigarettes Smokeless Tobacco: Never Alcohol Use Standard Drinks/Week Comments Yes 0 (1 standard drink = 0.6 oz pur e alcohol) Rare [facility] Utilities Answer Date Recorded In the past 12 months has [employer], gas, oil, or water [employer] threatened to shut off services in your [...] in the past 12 m [facility], were you homeless or living in a detention (including now)? No 08/28/2024 Food Insecurity Answer [...] AM EDT Hospital Encounter [facility] [address] [place] [address] Jose Miguel Lucero MD [address] [facility] [address] [place] [address] 04/01/2025 11:45 AM EDT - 04/01/2025 12:00 PM EDT Surgery [facility] [address] [place] [address] Jose Miguel Lucero MD [address] [facility] [address] [place] [address] ESOPHAGOGASTRODUODENOSCOPY BIOPSY 04/19/2025 12:30 PM EDT Hospital Encounter [facility] [address] [place] [address] Jose Miguel Lucero MD [address] [facility] [address] [place] [address] 04/19/2025 12:30 PM EDT - 04/19/2025 1:00 PM EDT Surgery [facility] [address] [place] [address] Jose Miguel Lucero MD [address] [address] COLORECTAL CANCER SCREENING, NOT HIGH RISK Scheduled Procedures Name Priority Associated Diagnoses Date/Ti me ESOPHAGOGASTRODUODENOSCOPY BIOPSY Gastroesophageal reflux disease, unspecified whether esophagitis present 04/01/2025 11:45 AM EDT COLORECTAL CANCER SCREENING, NOT HIGH RISK Dysphagia, unspecified Screening for colon cancer 04/19/2025 12:30 PM EDT documented as of this encounter Visit Diagnoses Not on filedocumented in this encounter Care Teams Enamel Dipper Relationship Specialty Start Date End Date Judi Tapia, DIRECTOR GAME - CARPET REPAIRER [address] [place] [id number] PCP - General 08/29/24 documented as of this encounter
--- OUTSIDE RECORDS SUMMARY | 2025-03-19 19:51 | XMS_ITS | Encounter Summary ---
Author Organization [facility] Address [address] [place] [address] Care Team Providers Care Route Driver Coin Machines Name Role Phone Judi Tapia ACOUSTICAL LOGGING ENGINEER - ELECTRICAL MAINTENANCE TECHNICIAN Primary Care Provide r Encounter Details Date Type Department Care Team (Latest Contact Info) Description 02/26/2025 Prep for Procedure [facility] Gastroenterology [address] [facility] [address] [place] [phone] Jose Miguel Lucero MD [address] [facility] [address] [place], [place] [phone] Screening for colon cancer Social History Tobacco Use Types Packs/Day Years Used Date Smoking Tobacco: Former Cigarettes Smokeless Tobacco: Never Alcohol Use Standard Drinks/Week Comments Yes 0 (1 standard drink = 0.6 oz pur e alcohol) Rare [facility] Utilities Answer Date Recorded In the past 12 months has [employer], gas, oil, or water [employer] threatened to shut off services in your [...] were you homeless or living in a assisted (including now)? No 08/28/2024 Food Insecurity Answer [...] AM EDT Hospital Encounter [facility] [address] [place] [address] Jose Miguel Lucero MD [address] [facility] [address] [place] [address] 04/01/2025 11:45 AM EDT - 04/01/2025 12:00 PM EDT Surgery [facility] [address] [place] [address] Jose Miguel Lucero MD [address] [facility] [address] [place] [address] ESOPHAGOGASTRODUODENOSCOPY BIOPSY 04/19/2025 12:30 PM EDT Hospital Encounter [facility] [address] [place] [address] Jose Miguel Lucero MD [address] [facility] [address] [place] [address] 04/19/2025 12:30 PM EDT - 04/19/2025 1:00 PM EDT Surgery [facility] [address] [place] [address] Jose Miguel Lucero MD [address] [address] COLORECTAL CANCER SCREENING, NOT HIGH RISK Scheduled [...] colon documented in this encounter Care Teams Route Driver Coin Machines Relationship Specialty Start Date End Date Judi Tapia, ACOUSTICAL LOGGING ENGINEER - ELECTRICAL MAINTENANCE TECHNICIAN [address] [place] [address] PCP - General 08/29/24 documented as of this encounter
--- OUTSIDE RECORDS SUMMARY | 2025-03-19 19:51 | XMS_ITS | Encounter Summary ---
Author Organization [facility] Address [address] [place] [address] Phone Care Team Providers Care Veneer Sheet Repairer Name Role Phone Unavailable Primary Care Provider Unavailabl e Encounter Details Date Type Department Care Team (Late st Contact Info) Description 03/26/2023 Orders Only [facility] [address] [place] [address] Conversion, Onbase Social History Tobacco Use Types [...]
--- OUTSIDE RECORDS SUMMARY | 2025-03-19 19:51 | XMS_ITS | Encounter Summary ---
Author Organization [facility] Address [address] [place] [address] Care Team Providers Care Bulk Sugar Handler Name Role Phone Joel Alejandra DO Primary Care Provider [phone] Rafa Rangelangelicanoemi Unavailable Source Comments In the event this information is protected by the Federal Confidentiality of Alcohol and Drug AbusePatient Records regulations: The Federal rules restrict any use of the information to criminally investigate or prosecute any alcohol or drug abuse patient.[facility] Encounter Details Date Type Department Care Team (Late st Contact Info) Description 05/27/2023 Patient Msg General Surgery [address] [phone] Evelyn Berger RN EGD/POP PROCEDURE WITH DR [...] lower risk 8 05/06/2023 Data from: https://www.neighborhoodatlas.medicine.[facility].edu/. Last address used for calculation [address] [...] on filedocumented in this encounter Care Teams Bulk Sugar Handler Relationship Specialty Start Date End Date Joel Alejandra DO PCP - General Family Medicine 04/26/18 Rafa Rangel [address] [phone] Referring General Surgery 04/26/18 documented as of this encounter
--- OUTSIDE RECORDS SUMMARY | 2025-03-19 19:51 | XMS_ITS | Clinical Summary ---
Author Organization [facility] Address [address] [place] [address] Phone Care Team Providers Care Lace Inspector Name Role Phone Unavailable Primary Care Provider [...]
--- OUTSIDE RECORDS SUMMARY | 2025-03-19 19:51 | XMS_ITS | Clinical Summary ---
Author Organization [facility] Address [address] [place] [address] Care Team Providers Care Winchman/Crane Operator Name Role Phone Judi Tapia REJI Primary Care Provider [phone] Allergies Active Allergy Reactions Criticality Noted Date [...] Description 02/28/2025 9:40 AM EDT Office Visit [place] [address] [place] [address] Elio Heart MD Other chest pain (Primary Dx); CA (dyspnea on exertion); Palpitations; Sinus tachycardia; Essential hypertension; Pure hypercholesterolemia; Obstructive sleep apnea; Overweight (BMI 25.0-29.9); Former smoker 02/04/2025 Telephone [facility] [address] [place] [address] Ros Meza MA 01/11/2025 Orders Only [facility] [address] [place] [phone] Elio Heart MD Other chest pain (Primary Dx) 12/28/2024 1:20 PM EDT Office Visit [facility] [address] [place] [address] Elio Heart MD Other chest pain (Primary Dx); Palpitations; Sinus tachycardia; CA (dyspnea on exertion); Essential hypertension; Overweight (BMI 25.0-29.9); Former smoker 12/20/2024 Telephone [facility] [address] [place] [address] Christina Plummer MA from Last [...] Most Recently Relevant to Health Maintenance Insurance [facility] Care Teams Winchman/Crane Operator Relationship Specialty Start Date End Date Judi Tapia CNP [address] [place] [address] [place] [address] PCP - General Family Medicine 02/14/24
--- OUTSIDE RECORDS SUMMARY | 2025-03-19 19:51 | XMS_ITS | Encounter Summary ---
Author Organization [facility] Address [address] [place] [address] Care Team Providers Care Wet Machine Cutter Name Role Phone Joel Alejandra Primary Care Provider [phone] Rafa Rangel Unavailable [phone] Source Comments In the event this information is protected by the Federal Confidentiality of Alcohol and Drug AbusePatient Records regulations: The Federal rules restrict any use of the information to criminally investigate or prosecute any alcohol or drug abuse patient.[facility] Encounter Details Date Type Department Care Team (Late st Contact Info) Description 07/22/2023 Patient Msg General Surgery [address] [phone] Provider, [facility] Nutrition Summary Social History Tobacco [...] is lower risk 8 05/06/2023 Data from: https://www.neighborhoodatlas.medicine.[facility].edu/. Last address used for calculation [address] [...] on filedocumented in this encounter Care Teams Wet Machine Cutter Relationship Specialty Start Date End Date Joel Alejandra DO PCP - General Family Medicine 04/26/18 Rafa Rangel [address] [phone] Referring General Surgery 04/26/18 documented as of this encounter
== END 2025-03-19 19:50 | disposition home or self-care (01) ==
LOC: SLEEP 19:49
PROVIDERS: PCP Nurse Practitioner Family; Visit Provider Psychiatry & Neurology Neurology
DX: R53.83 Other fatigue (principal); G47.33 Obstructive sleep apnea (adult) (pediatric)
CPT/HCPCS: 36415; 80053; 82306; 82607; 83036; 83540; 84436; 84443; 84481; 85025; 95811

== ENCOUNTER 2025-03-21 10:59 | Outpatient (OUT) | payer BC, SELFPAY ==
--- OUTSIDE RECORDS SUMMARY | 2025-03-18 05:30 | XMS_ITS ---
Author Organization The [facility] in [place] Address [address] [place] [address] Care Team Providers Care Dirt Shoveler Name Role Phone Judi Tapia Primary Care Provider [phone] REASON FOR VISIT Renal US- LMTCB X 1 Problems Problem Type SNOMED Code ICD Code Onset Dates Problem Status W/U Status Risk Notes Problem Renal mass (N28.89) Active confirmed Encounters Encounter Location Date Provider Diagnosis [facility] [address] [place] [address] 03/18/2025 Judi Tapia Renal mass N28.89 Assessments Encounter Date Diagnosis (ICD Code) Assessment Notes Treatment Notes Treatment Clinical Notes Section Notes 03/18/2025 Renal mass (ICD-10 - N28.89) Plan Of Treatment Pending Test Test Name Order Date US KIDNEYS BLADDER 03/18/2025 Progress Notes * WALKER OlyDOB:[birth year] (54 yo F)Acc No.[id number]:03/18/2025 Patient: Oly JONES :1970 A ge:54 Y S ex:Female Address:[address] [place] [address] Subjective: * Chief Complaints: * R enal US- LMTCB X 1 * Medical History: * Surgical History: * Hospitalization/Major Diagno stic Procedure: * Medications: Objective: * Vitals: * Physical Examination: Assessment: * Assessment: 1. R enal mass - N28.89 (Primary) Plan: * Treatment: * Procedure Codes: * true * Date: Generated for Monica fraser/Luisa/Yoel on: 0 03/21/2025 11:03 AM EDT
--- OUTSIDE RECORDS SUMMARY | 2025-03-18 08:45 | XMS_ITS | Encounter Summary ---
Author Organization [facility] Address [address], [address] [place] [address] Care Team Providers Care Social Service Liaison Name Role Phone Judi Tapia BARREL RIB MATTING MACHINE OPERATOR - SYSTEM SUPPORT SPECIALIST Primary Care Provide r Encounter Details Date Type Department Care Team (Late st Contact Info) Description 03/18/2025 8:45 AM EDT Hospital Encounter [facility] Pre-Admit Testing [address] [place] [address] Arrived Social History Tobacco Use Types Packs/Day Years Used Date Smoking Tobacco: Former Cigarettes Smokeless Tobacco: Never Alcohol Use Standard Drinks/Week Comments Yes 0 (1 standard drink = 0.6 oz pur e alcohol) Rare [facility] Utilities Answer Date Recorded In the past 12 months has e electric, gas, oil, or water company [...] any time in the past 12 m [facility], were you homeless or living in a fci (including now)? No 08/28/2024 Food Insecurity Answer [...] lotion, powder, jewelry, piercings, perfume, makeup, nail pashto, hair accessories, or hair spray on the day of surgery. Wear loose comfortable clothing. Leave your valuables at home but bring a payment source for any after-surgery prescriptions you plan to fill at [facility]. Bring a storage case for any glasses/contacts. An adult who is responsible for you MUST remain in the hospital and drive you home and should be with you for the first 24 hours after surgery. The Day of Surgery: Arrive at [facility] Surgery Entrance at the time directed by your surgeon and check in at the desk. If you have a living will or healthcare power of workers compensation attorney, please bring a copy. You will be taken to the pre-op holding area where you will be prepared for surgery. A physical assessment will be performed by a nurse practitioner or greenhouse specialist. Your IV will be started and you will meet your anesthesiologist. When you go to surgery, your family will be directed to the surgical waiting room, where the doctorshould speak with them after your surgery. After [...] AM EDT Hospital Encounter [facility] [address] [place] [address] Jose Miguel Lucero MD [address] [place] [address] 04/01/2025 11:45 AM EDT - 04/01/2025 12:00 PM EDT Surgery [facility] [address] [place] [address] Jose Miguel Lucero MD [address] [place] [address] ESOPHAGOGASTRODUODENOSCOPY BIOPSY 04/19/2025 12:30 PM EDT Hospital Encounter [facility] [address] [place] [address] Jose Miguel Lucero MD [address] [place] [address] 04/19/2025 12:30 PM EDT - 04/19/2025 1:00 PM EDT Surgery [facility] [address] [place] [address] Jose Miguel Lucero MD [address] [place] [address] COLORECTAL CANCER SCREENING, NOT HIGH RISK Scheduled Procedures Name Priority Associated Diagnoses Date/Ti me ESOPHAGOGASTRODUODENOSCOPY BIOPSY Gastroesophageal reflux disease, unspecified whether esophagitis present 04/01/2025 11:45 AM EDT COLORECTAL CANCER SCREENING, NOT HIGH RISK Dysphagia, unspecified Screening for colon cancer 04/19/2025 12:30 PM EDT documented as of this encounter Visit Diagnoses Not on filedocumented in this encounter Care Teams Social Service Liaison Relationship Specialty Start Date End Date Judi Tapia, BARREL RIB MATTING MACHINE OPERATOR - SYSTEM SUPPORT SPECIALIST [address] [place] [address] PCP - General 08/29/24 documented as of this encounter
--- OUTSIDE RECORDS SUMMARY | 2025-03-19 04:30 | XMS_ITS ---
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 9) Diagnosis 3 Hiatal hernia (K44.9 ) Referral Organization [facility] Medicine Referring Provider First Name Judi Referring Provider Last Name Regina Referring Provider Speciality Family [facility] melo Referred Provider Anai Forbes Referred Provider Specialty Gastroentero logy Referral Priority Routine REASON FOR VISIT ER f/u, patient states [...] No Points 0 Interpretation Negative Vital Signs Blood pressure systolic 130 mm Hg 03/19/20 25 Blood pressure diastolic 72 mm Hg 025 Height 67 in 03/19/2025 Weight 188 lbs 03/19/2025 BMI 29.44 kg/m2 03/19/2025 Encounters Encounter Location Date Provider Diagnosis [facility] [address] [place] [address] 03/19/2025 Judi Regina Fatigue R53.83 ; Dyskinesia of esophagus K22.4 ; Abdominal pain R10.9 and Hiatal hernia K44.9 Assessments Encounter Date Diagnosis (ICD Code) Assessment Notes Treatment Notes Treatment Clinical Notes Section Notes 03/19/2025 Fatigue (ICD-10 - R53.83) continue with sleep study 03/19/2025 Dyskinesia of esophagus (ICD-10 - K22.4) 03/19/2025 Abdominal pain (ICD-10 - R10.9) 03/19/2025 Hiatal hernia (ICD-10 - K44.9) Plan Of Treatment Treatment Notes Assessment Notes Fatigue continue with sleep study Pending Test Test Name Order Date HEMOGLOBIN A1C (GLYCO) 03/19/2025 IRON, TOTAL 03/19/2025 VITAMIN D, 25 LEVEL (TOTAL) 03/19/2025 VITAMIN B12 03/19/2025 THYROID PANEL (T4/TSH/FREE T3) CMP (COMP MET HERNANDEZ) w/eGFR CKD-EPI 2024 CBC WITH DIFF 03/19/2025 Referrals Referral Date Details 03/19/2025 03/19/2025, Ospina Sa molina Next Appt Details Follow Up: prn, Reason: Progress Notes * Oly CARDOSODOB:[birth year] (54 yo F)Acc No.[id number]:03/19/2025 Progress Note Patient: Oly JONES Provider: Cesia Tapia ([facility]), MUSEUM SPECIALIST :1970 A ge:54 Y S ex:Female Date:03/19/2025 Address:[address] [place] [address], [id number] Check In:08:01 AM ESTCheck O ut:08:24 AM [...] fatigue, second sleep study on . * ROS: G eneral/Constitutional: Chronic fatigue a dmits. F ever d enies. H eadache d enies. W eight loss d enies. O phthalmologic: Discharge d enies. E ye Pain d enies. I tching and redness d enies. E NT: Nasal discharge d enies. N bob congestion d enies.�Sore throat d enies. C ardiovascular: Chest tightness/ heavy pressure d enies. R apid heart rate d enies. S welling of extremities d enies. C hest pain d enies. � R espiratory: Productive cough d enies. C hest pain d enies. C ough d enies. S hortness of breath d enies. W heezing d enies. � G astrointestinal: Dysphagia a dmits. A bdominal pain l ower abdomen, chronic. C onstipation d enies. D ecreased appetite d enies. D iarrhea d enies. N ausea a dmits, intermittent. V omiting d enies. G enitourinary: Urinary incontinence d enies. P ainful urination d enies. M usculoskeletal: Back pain d enies. N sarika pain d enies. M uscle aches d enies. S kin: Rash d enies. S kin lesion(s) d enies. � * Active Problem List K22.4 Dyskinesia of esopha domingo Modified On:03/31/2023 Status:confirmed K57.92 Diverticulitis Modified On:02/07/2018 Status:confirmed K30 Functional dyspepsia Modified On:04/08/2023 Status:confirmed K56.7 Ileus Modified On:10/18/2023 Status:confirmed K56.609 SBO (small bowel obs truction) Modified On:12/05/2023 Status:confirmed F32.9 Depression Modified On:12/30/2023 Status:confirmed K21.9 Gastro-esophageal re flux Modified On:01/03/2024 Status:confirmed K31.84 Gastroparesis Modified On:01/03/2024 Status:confirmed E55.9 Vitamin D deficiency Modified On:01/04/2024 Status:confirmed M51.36 Lumbar degenerative disc disease Modified On:01/05/2024 Status:confirmed R00.0 Tachycardia Modified On:01/20/2024 Status:confirmed K21.9 GERD (gastroesophage al reflux disease) Modified On:01/24/2024U Status:confirmed E44.0 Moderate protein mal nutrition Modified On:01/24/2024U Status:confirmed D70.9 Neutropenia Modified On:01/24/2024U Status:confirmed D50.9 Anemia, iron deficie ncy Modified On:01/24/2024U Status:confirmed E83.42 Hypomagnesemia Modified On:01/24/2024 Status:confirmed E16.2 Hypoglycemia Modified On:04/27/2024 Status:confirmed R00.2 Palpitation Modified On:05/15/2024U Status:confirmed N39.0 UTI (urinary tract i nfection) Modified On:10/01/2024U Status:confirmed I10 HTN (hypertension) Modified On:02/07/2025W/U Status:confirmed R13.10 Dysphagia Modified On:02/18/2025W/U Status:confirmed N28.89 Renal mass Modified On:03/19/2025/U Status:confirmed * Medical History: M itrovalve prolapse, Acute diverticulitis, Dyskinesia of esophagus. * Surgical History: G allbladder , Hysterectomy , Hernia Repair . * Hospitalization/Major Diagno stic Procedure: A bd Pain, Vomiting 03/25/2023, bowel obstruction 10/2023, bowel obstruction 11/26, Bowel Obstruction- [facility] sent to [facility] 08/2024. * Family History: F ather: , Cancer. M other: alive. B rother(s): alcohol abuse. S ister(s): alive, thyroid disease, diagnosed with Diabetes mellitus without mention of complication, type II or unspecified type, not stated as uncontrolled, Unspecified essential hypertension. S on(s): alive, alcohol abuse. D aughter(s): alive. 2 brother(s) , 2 sister(s) . [...] Hg, BMI:29.44Index, Ht-cm: 170.18 cm, Wt-k.28 kg. * Examination: G eneral Examinations: GENERAL APPEARANCE: a lert and oriented, i n no acute distress. EYES: c onjunctiva normal, sclera non-icteric. NOSE: n ormal external appearance. LUNGS: c lear to auscultation bilaterally. CARDIO: r egular rate and rhythm, S1, S2 normal. ABDOMEN: s oft, , active bowel sounds, diffuse tenderness lower abdomen. MUSCULOSKELETAL: G ait and station normal. SKIN: w arm and dry. Assessment: * Assessment: 1. F atigue - R53.83 (Primary) 2 . D yskinesia of esophagus - K22.4 � 3 . A bdominal pain - R10.9 4 . H iatal hernia - K44.9 � Plan: * Treatment: 2. D yskinesia of esophagus Referral To:[facility] G[facility] Reason: 3. A bdominal pain Referral To:[facility] Reason: 4. H iatal hernia Referral To:[facility] Reason: * Preventive Medicine: Screenings/Counseling: B IN ACTION PLAN Above Normal BMI Follow-up D ietary management education, guidance, and counseling * Follow Up: p rn * * Electronically signed by Edelmira Tapia , LINDA, RUBBER HEEL AND SOLE PRESS TENDER.MUSEUM SPECIALIST.[id number] on 03/19/2025 at 10:37 AM EDT Sign off status: Completed Visit Status: C HK (Check Out) true * Provider: Cesia Tapia ([facility]), MUSEUM SPECIALIST Date: 03/19/2025 Generated for Monica fraser/Luisa/Hectoritting on: 03/21/2025 11:02 AM EDT History and Physical Notes * HPI (History of Present Illness) Category Sub-Category Detail Notes Category Not es General trouble swallowing , throat feels like its swollen feels like something in throat Dr Boone, scope scheduled for sharp pains in belly, lower abdomen sleep apnea, fatigue, second sleep study on Examination Category Sub-Category Detail Notes Category Not es General Examinations GENERAL APPEARANCE: alert a nd oriented, in no acute distress EYES: conjunctiva normal, sclera non-icteric EARS: NOSE: normal external appe arance THROAT: CARDIO: regular rate and rhy thm, S1, S2 normal LUNGS: clear to auscultatio n bilaterally ABDOMEN: soft, , active bowel sounds, diffuse tenderness lower abdomen SKIN: warm and dry BACK: MUSCULOSKELETAL: Gait and station nor mal LYMPH NODES: Consultation Request Notes Referral Date Referring Provider Referred Provider Not es 03/19/2025 Judi Tapia Maher
--- OUTSIDE RECORDS SUMMARY | 2025-03-19 04:58 | XMS_ITS ---
Author Organization [facility] in [place] Address [address] [place] [address] Care Team Providers Care Metal Cnc Operator Name Role Phone Judi Tapia Primary Care Provider Reason For Referral Diagnosis 1 Abdominal pain (R10. 9) Referral Organization [facility] Referring Provider First Name Judi Referring Provider Last Name Regina Referring Provider Speciality Family Med icine Referred Provider Anai Forbes Referred Provider Specialty Gastroentero logy Referral Priority Routine REASON FOR VISIT gi Encounters Encounter Location Date Provider Diagnosis [facility] [address] [place] [address] 03/19/2025 Judi Tapia Plan Of Treatment Referrals Referral Date Details 03/19/2025 03/19/2025Anai Sa Progress Notes * WALKER OlyDOB:[birth year] (54 yo F)Acc No.[id number]:03/19/2025 Patient: Oly JONES :1970 A ge:54 Y S ex:Female Address:[facility] [place], [address] Subjective: * Chief Complaints: * G i * Medical History: * Surgical History: * Hospitalization/Major Diagno stic Procedure: * Medications: Objective: * Vitals: * Physical Examination: Assessment: Plan: * Treatment: * Procedure Codes: * true * Date: Generated for Printi ng/Faxing/eTransmitting on: 0 03/21/2025 11:03 AM EDT Consultation Request Notes Referral Date Referring Provider Referred Provider Not es 03/19/2025 Judi Tapia Maher
--- OUTSIDE RECORDS SUMMARY | 2025-03-21 11:02 | XMS_ITS | Encounter Summary ---
Author Organization [facility] Address [address] [place] [address] Phone Care Team Providers Care Engineering Design Manager Name Role Phone Unavailable Primary Care Provider Unavailabl e Encounter Details Date Type Department Care Team (Late st Contact Info) Description 03/26/2023 Orders Only [facility] [address] [place] [address] Conversion, Onbase Social History Tobacco Use Types [...]
--- OUTSIDE RECORDS SUMMARY | 2025-03-21 11:02 | XMS_ITS | Clinical Summary ---
Author Organization [facility] Address [address] [place] [address] Phone Care Team Providers Care Retention Specialist Name Role Phone Unavailable Primary Care Provider [...]
--- OUTSIDE RECORDS SUMMARY | 2025-03-21 11:02 | XMS_ITS | Clinical Summary ---
Author Organization [facility] Address [address] [facility] [place] [address] Care Team Providers Care Livestock Farmers Name Role Phone Judi Tapia IMPORTER EXPORTER - BIOLOGY RESEARCH ASSISTANT Primary Care Provide r Allergies Active Allergy [...] EDT Hospital Encounter [facility] Pre-Admit Testing [address] [place] [address] Arrived 03/18/2025 Travel 03/14/2025 Prep for Procedure [facility] Gastroenterology [address] [place] [phone] Jose Miguel Lucero MD 02/26/2025 1:30 PM EDT Office Visit [facility] Gastroenterology [address] [place] [phone] Jose Miguel Lucero MD Dysphagia, unspecified type (Primary Dx); Generalized abdominal pain; Screen for colon cancer 02/26/[address] [facility] Gastroenterology [address] [place] [phone] Jose Miguel Lucero MD Procedure (EGD/colon) 02/26/2025 Prep for Procedure [facility] Gastroenterology [address] [place] [phone] Jose Miguel Lucero MD Screening for colon cancer 02/11/[address] [facility] Gastroenterology [address] [place] [address] Jose Miguel Lucero MD Appointment Requested from Last 3 Months Social History Tobacco Use Types Packs/Day Years Used Date Smoking Tobacco: Former Cigarettes Smokeless Tobacco: Never Tobacco Cessation:Counseling Given: Not Answered Alcohol Use Standard Drinks/Week Comments Yes 0 (1 standard drink = 0.6 oz pur e alcohol) Rare [facility] Utilities Answer Date Recorded In the past 12 months has th e [employer], gas, oil, or water [employer] threatened to shut off services in your [...] AM EDT Hospital Encounter [facility] [address] [place] [address] Jose Miguel Lucero MD [address] [facility] [address] [place] [address] 04/01/2025 11:45 AM EDT - 04/01/2025 12:00 PM EDT Surgery [facility] [address] [place] [address] Jose Miguel Lucero MD [address] [facility] [address] [place] [address] ESOPHAGOGASTRODUODENOSCOPY BIOPSY 04/19/2025 12:30 PM EDT Hospital Encounter [facility] [address] [place] [address] Jose Miguel Lucero MD [address] [facility] [address] [place] [address] 04/19/2025 12:30 PM EDT - 04/19/2025 1:00 PM EDT Surgery [facility] [address] [place] [address] Jose Miguel Lucero MD [address] [facility] [address] [place] [address] COLORECTAL CANCER SCREENING, NOT HIGH RISK Scheduled [...] patient's age to complete this topic Insurance [place] Advance Directives * Full Code (Latest Code Status on File) Date Activated Date Inactivated Comments 08/28/2024 3:16 PM 08/30/2024 6:26 PM Care Teams Livestock Farmers Relationship Specialty Start Date End Date Judi Tapia, ANDREEA - BIOLOGY RESEARCH ASSISTANT [address] [place] [address] PCP - General 08/29/24
--- OUTSIDE RECORDS SUMMARY | 2025-03-21 11:02 | XMS_ITS | Encounter Summary ---
Author Organization [facility] Address [address] [place] [address] Care Team Providers Care Report Manager Name Role Phone Unallocated, Noms Edin BAKER Primary Care Provi christine Judi Tapia MD Unavailable [phone] Nikki Ayoub Unavailable Encounter Details Date Type Department Care Team (Late st Contact Info) Description 03/26/[address] [facility] [address] [facility] [address] [place] [phone] Rafa Rangel DO [address] [facility] [address] [place] [address] Social History Tobacco Use Types [...] on filedocumented in this encounter Care Teams Report Manager Relationship Specialty Start Date End Date Unallocated, Noms MD Edin [address] [place] [address] PCP - General 04/25/23 Judi Tapia MD [address] [place] [address] Referring Physician Family Medicine 04/25/23 Nikki Ayoub PA [address] [place], [place] [phone] Physician Getter Operator Neurology 11/26/24 documented as of this encounter
--- OUTSIDE RECORDS SUMMARY | 2025-03-21 11:02 | XMS_ITS | Encounter Summary ---
Author Organization [facility] Address [address] [facility] [place] [address] Care Team Providers Care Enterprise Software Engineer Name Role Phone Judi Tapia COMFORT STATION SUPERVISOR - WOODYARD CRANE OPERATOR Primary Care Provide r Encounter Details Date Type Department Care Team (Latest Contact Info) Description 03/18/2025 Travel Social History Tobacco Use Types Packs/Day Years Used Date Smoking Tobacco: Former Cigarettes Smokeless Tobacco: Never Alcohol Use Standard Drinks/Week Comments Yes 0 (1 standard drink = 0.6 oz pur e alcohol) Rare [facility] Utilities Answer Date Recorded In the past 12 months has e [employer], gas, oil, or water [employer] threatened to shut off services in your [...] AM EDT Hospital Encounter [facility] [address] [place] [address] Jose Miguel Lucero MD [address] [facility] [address] [place] [address] 04/01/2025 11:45 AM EDT - 04/01/2025 12:00 PM EDT Surgery [facility] [address] [place] [address] Jose Miguel Lucero MD [address] [facility] [address] [place] [address] ESOPHAGOGASTRODUODENOSCOPY BIOPSY 04/19/2025 12:30 PM EDT Hospital Encounter [facility] [address] [place] [address] Jose Miguel Lucero MD [address] [place] [address] 04/19/2025 12:30 PM EDT - 04/19/2025 1:00 PM EDT Surgery [facility] [address] [place] [address] Jose Miguel Lucero MD [address] [facility] [address] [place] [address] COLORECTAL CANCER SCREENING, NOT HIGH RISK Scheduled Procedures Name Priority Associated Diagnoses Date/Ti me ESOPHAGOGASTRODUODENOSCOPY BIOPSY Gastroesophageal reflux disease, unspecified whether esophagitis present 04/01/2025 11:45 AM EDT COLORECTAL CANCER SCREENING, NOT HIGH RISK Dysphagia, unspecified Screening for colon cancer 04/19/2025 12:30 PM EDT documented as of this encounter Visit Diagnoses Not on filedocumented in this encounter Care Teams Enterprise Software Engineer Relationship Specialty Start Date End Date Judi Tapia, COMFORT STATION SUPERVISOR - WOODYARD CRANE OPERATOR [address] [place] [phone] PCP - General 08/29/24 documented as of this encounter
--- OUTSIDE RECORDS SUMMARY | 2025-03-21 11:03 | XMS_ITS | Patient Health Record ---
Author Organization [facility] [place] Address [address] [place] [address] Care Team Providers Care Photographic Editor Name Role Phone Judi Youssef Primary Care Provider Isaac Izaguirre [phone] Allergies Allergen (clinical drug ingredient) Drug/Non Drug Allergy documented on EMR Reaction Allergy Type Onset Date Status Flexeril (uncoded) anaphylaxis Allergy Active Penicillin (uncoded) arm swelling Allergy Active Results Component Value Reference Range Notes MAGNESIUM Reviewed date:09/07/2024 11:32:59 AM Interpretation: Performing Lab: Notes/Report: [facility] , Magnesium 2.1 1.8-2.4 mg/dL Performing Lab: see note ML - [facility] LB CT abdomen pelvis w con Reviewed date:06/04/2024 09:49:37 AM Interpretation: Performing Lab: Notes/Report: Source Facility: [facility]-[address] [place] [address] CT Scan Report Signed Patient: CONSTANTINO MENDIOLA MR#: [id number] : 1970 Acct:[id number] Age/Sex: 54 / F ADM Date: 06/01/24 Loc: ER Attending Dr: Ordering Physician: Kathrin Quiros Date of Service: 06/01/24 Procedure(s): CT abdomen pelvis w con Accession Number(s): [id number] cc: JUDI YOUSSEF [place] [address] Patient Name: CONSTANTINO MENDIOLA MRN: [id number] date: 1970 Sex: F Assigned Patient Location: ER Current Patient Location: ED.MAIN Accession/Order Number: [id number] Exam Date: 06/01/2024 22:21 Report Date: 06/01/2024 [...] M.D. Signed By: 06/01/242315 DD/ 12 TD/TT: Planning Analyst: [place] [address] CT Scan Report Signed Patient: ARIELLE MENDIOLA MR#: [id number] : 1970 Acct:[id number] Age/Sex: 54 / F ADM Date: 06/01/24 Loc: ER Attending Dr: Ordering Physician: Kathrin Quiros Date of Service: 06/01/24 Procedure(s): CT abd omen pelvis w con Accession Number(s): [id number] cc: JUDI YOUSSEF [place] [address] Patient Name: CONSTANTINO MENDIOLA MRN: [id number] date: 1970 Sex: F Assigned Patient Location: ER Current Patient Loca tion: ED.MAIN Accession/Order Numb er: [id number] Exam Date: 06/01/2024 22:21 Report Date: 06/01/2024 [...] M.D. Signed By: 06/01/242315 DD/ 12 TD/TT: Planning Analyst: DIGNA REYES LT 3V Reviewed date:06/25/2024 12:06:18 PM Interpretation: Performing Lab: Notes/Report: Source Facility: [facility]-[address] [place] [address] [place] [address] XRay Report Signed Patient: CONSTANTINO MENDIOLA MR#: [id number] : 1970 Acct:[id number] Age/Sex: 54 / F ADM Date: 06/24/24 Loc: ER Attending Dr: Ordering Physician: Zeferino Armas M.D. Date of Service: 06/24/24 Procedure(s): XR knee LT 3V Accession Number(s): [id number] cc: JUDI YOUSSEF ; Zeferino Armas M.D. The [place] [id number] Patient Name: CONSTANTINO MENDIOLA MRN: [id number] date: 1970 Sex: F Assigned Patient Location: ED.MAIN Current Patient Location: ER Accession/Order Number: [id number] Exam Date: 06/24/2024 01:30 Report Date: 06/24/2024 [...] ossicle at the tibial tubercle compatible with Cadwell-Schlatter's disease. Electronically authenticated by: MAILE LAWRENCE Date: 06/24/2024 05:07 Dictated By: Maile Lawrence M.D. Signed By: 06/24/24 0510 DD/ 0507 TD/TT: Planning Analyst: [place] [address] XRay Report Signed Patient: ARIELLE MENDIOLA MR#: [id number] : 1970 Acct:[id number] Age/Sex: 54 / F ADM Date: 06/24/24 Loc: ER Attending Dr: Ordering Physician: Zeferino Armas M.D. Date of Service: 06/24/24 Procedure(s): XR kne e LT 3V Accession Number(s): [id number] cc: JUDI YOUSSEF ; Zeferino Armas M.D. [address] [address] Patient Name: CONSTANTINO MENDIOLA MRN: [id number] date: 1970 Sex: F Assigned Patient Location: ED.MAIN Current Patient Loca tion: ER Accession/Order Numb er: [id number] Exam Date: 01:30 Report Date: 06/24/2024 05:07 [...] Signed By: 06/24/24 0510 DD/ 0507 TD/TT: Planning Analyst: knee LT wo con Reviewed date:07/10/2024 08:58:52 AM Interpretation: Performing Lab: Notes/Report: Source Facility: [place] [address] Magnetic Resonance Report Signed Patient: CONSTANTINO MENDIOLA MR#: [id number] : 1970 Acct:[id number] Age/Sex: 54 / F ADM Date: 07/09/24 Loc: MRI Attending Dr: Nichole HAQ Ordering Physician: Nichole Harden Date of Service: 07/09/24 Procedure(s): MR knee LT wo con Accession Number(s): [id number] cc: JUDI YOUSSEF ; Nichole Harden [place] [address] Patient Name: CONSTANTINO MENDIOLA MRN: [id number] date: 1970 Sex: F Assigned Patient Location: MRI Current Patient Location: MRI Accession/Order Number: [id number] Exam Date: 07/09/2024 08:50 Report Date: 07/09/2024 [...] M.D. Signed By: 07/09/241652 DD/ 49 TD/TT: Planning Analyst: [place] [address] Magnetic Resonance Report Signed Patient: ARIELLE MENDIOLA MR#: [id number] : 1970 Acct:[id number] Age/Sex: 54 / F ADM Date: 07/09/24 Loc: MRI Attending Dr: Blake Lerner Ordering Physician: Nichole Harden Date of Service: 07/09/24 Procedure(s): MR kingsley melara LT wo con Accession Number(s): [id number] cc: JUDI YOUSSEF ; Nichole Harden [place] [id number] Patient Name: CONSTANTINO MENDIOLA MRN: [id number] date: 1970 Sex: F Assigned Patient Location: MRI Current Patient Loca tion: MRI Accession/Order Numb er: [id number] Exam Date: 08:50 Report Date: 07/09/2024 16:50 [...] M.D. Signed By: 07/09/241652 DD/ 49 TD/TT: Planning Analyst: CBC AUTO DIFF Reviewed date:08/28/2024 08:57:50 AM Interpretation: Performing Lab: Notes/Report: [facility] , White Blood Count 8.4 [...] 3/uL Performing Lab: see note ML - [facility] LB PROF CHEM 8 (BAS METB) Reviewed date:08/28/2024 08:57:50 AM Interpretation: Performing Lab: Notes/Report: [facility] , Sodium 143 136-145 mmol/L [...] Performing Lab: see note ML - [facility] LB Troponin I High Sensitivity Reviewed date:08/28/2024 08:57:50 AM Interpretation: Performing Lab: Notes/Report: [facility] , Troponin I High Sensitivity [...] Performing Lab: see note ML - [facility] LB ECG 12 lead Reviewed date:08/28/2024 08:57:50 AM Interpretation: Performing Lab: Notes/Report: Source Facility: [place] [address] [place] [address] Electrocardiograph Report Signed Patient: CONSTANTINO MENDIOLA MR#: [id number] : 1970 Acct:[id number] Age/Sex: 54 / F ADM Date: 08/28/24 Loc: ER Attending Dr: Ordering Physician: Zeferino Armas M.D. 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 Signed By: 08/28/24 0656 DD/DT: 12410 TD/TT: Planning Analyst: [place] [address] Electrocardiograph Report Signed Patient: ARIELLE MENDIOLA MR#: [id number] : 1970 Acct:[id number] Age/Sex: 54 / F ADM Date: 08/28/24 Loc: ER Attending Dr: Ordering Physician: Zeferino Armas M.D. 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 Signed By: 08/28/24 0656 DD/ 0 TD/TT: Planning Analyst: XR chest 1V Reviewed date:08/28/2024 08:57:50 AM Interpretation: Performing Lab: Notes/Report: Source Facility: [place] [address] [place] [address] XRay Report Signed Patient: CONSTANTINO MENDIOLA MR#: [id number] : 1970 Acct:[id number] Age/Sex: 54 / F ADM Date: 08/28/24 Loc: ER Attending Dr: Ordering Physician: Zeferino Armas M.D. Date of Service: 08/28/24 Procedure(s): XR chest 1V Accession Number(s): [id number] cc: JUDI YOUSSEF ; Zeferino Armas M.D. [place] [id number] Patient Name: CONSTANTINO MENDIOLA MRN: [id number] date: 1970 Sex: F Assigned Patient Location: ER Current Patient Location: ER Accession/Order Number: [id number] Exam Date: 08/28/2024 04:28 Report Date: 08/28/2024 [...] D.O. Signed By: 08/28/24529 DD/ 6 TD/TT: Planning Analyst: [place] [address] XRay Report Signed Patient: ARIELLE MENDIOLA MR#: [id number] : 1970 Acct:[id number] Age/Sex: 54 / F ADM Date: 08/28/24 Loc: ER Attending Dr: Ordering Physician: Zeferino Armas M.D. Date of Service: 08/28/24 Procedure(s): XR chest 1V Accession Number(s): [id number] cc: JUDI YOUSSEF ; Zeferino Armas M.D. The [place] [id number] Patient Name: CONSTANTINO MENDIOLA MRN: [id number] date: 1970 Sex: F Assigned Patient Location: ER Current Patient Loca tion: ER Accession/Order Numb er: [id number] Exam Date: 04:28 Report Date: 08/28/2024 05:27 [...] D.O. Signed By: 08/28/24529 DD/ 6 TD/TT: Planning Analyst: XR acute abdomen series Reviewed date:08/28/2024 08:57:50 AM Interpretation: Performing Lab: Notes/Report: Source Facility: [place] [address] [place] [address] XRay Report Signed Patient: CONSTANTINO MENDIOLA MR#: [id number] : 1970 Acct:[id number] Age/Sex: 54 / F ADM Date: 08/28/24 Loc: ER Attending Dr: Ordering Physician: Zeferino Armas M.D. Date of Service: 08/28/24 Procedure(s): XR acute abdomen series Accession Number(s): [id number] cc: JUDI YOUSSEF ; Zeferino Armas M.D. The [place] [id number] Patient Name: CONSTANTINO MENDIOLA MRN: [id number] date: 1970 Sex: F Assigned Patient Location: ER Current Patient Location: ER Accession/Order Number: [id number] Exam Date: 08/28/2024 05:00 Report Date: 08/28/2024 [...] D.O. Signed By: 08/28/2434 DD/ 1 TD/TT: Planning Analyst: [place] [address] XRay Report Signed Patient: ARIELLE MENDIOLA MR#: [id number] : 1970 Acct:[id number] Age/Sex: 54 / F ADM Date: 08/28/24 Loc: ER Attending Dr: Ordering Physician: Zeferino Armas M.D. Date of Service: 08/28/24 Procedure(s): XR acu te abdomen series Accession Number(s): [id number] cc: JUDI YOUSSEF ; Zeferino Armas M.D. The [place] [id number] Patient Name: CONSTANTINO MENDIOLA MRN: [id number] date: 1970 Sex: F Assigned Patient Location: ER Current Patient Loca tion: ER Accession/Order Numb er: [id number] Exam Date: 05:00 Report Date: 08/28/2024 05:32 [...] D.O. Signed By: 08/28/2434 DD/ 1 TD/TT: Planning Analyst: CT abdomen pelvis w con Reviewed date:08/28/2024 08:57:50 AM Interpretation: Performing Lab: Notes/Report: Source Facility: [place] [address] CT Scan Report Signed Patient: CONSTANTINO MENDIOLA MR#: [id number] : 1970 Acct:[id number] Age/Sex: 54 / F ADM Date: 08/28/24 Loc: ER Attending Dr: Ordering Physician: Zeferino Armas M.D. Date of Service: 08/28/24 Procedure(s): CT abdomen pelvis w con Accession Number(s): [id number] cc: JUDI YOUSSEF [place] [address] Patient Name: CONSTANTINO MENDIOLA MRN: [id number] date: 1970 Sex: F Assigned Patient Location: ER Current Patient Location: ER Accession/Order Number: [id number] Exam Date: 08/28/2024 05:55 Report Date: 08/28/2024 [...] transition point. No dilated small bowel loops. Oumqt-ca-nhamqnbb hiatal hernia. Esophagogastric tube tip terminates in [...] tube tip terminates in the distal stomach. Pzeel-jx-vronkslt hiatal hernia. 3. Intermediate density lesion in the right renal cortex may correlate with a hemorrhagic/proteinaceous cyst. This could be further characterized with CT or MRI renal protocol. 4. Biliary ductal dilatation likely related to postcholecystectomy state. Recommend clinical correlation. Electronically authenticated by: MARQUES ROSEN Date: 08/28/2024 07:52 Dictated By: Marques Rosen M.D. Signed By: 08/28/24 0755 DD/ 0752 TD/TT: Planning Analyst: [place] [address] CT Scan Report Signed Patient: ARIELLE MENDIOLA MR#: [id number] : 1970 Acct:[id number] Age/Sex: 54 / F ADM Date: 08/28/24 Loc: ER Attending Dr: Ordering Physician: Zeferino Armas M.D. Date of Service: 08/28/24 Procedure(s): CT abd omen pelvis w con Accession Number(s): [id number] cc: JUDI YOUSSEF [facility] [address] [place], [place] [address] Patient Name: CONSTANTINO MENDIOLA MRN: [id number] date: 1970 Sex: F Assigned Patient Location: ER Current Patient Loca tion: ER Accession/Order Numb er: [id number] Exam Date: 05:55 Report Date: 08/28/2024 07:52 [...] transition point. No dilated small bowel loops. Nznzv-oc-rjbazkqo hiatal hernia. Esophagogast bertha tube tip terminates [...] tube tip terminates in the distal stomach. Usfub-al-hhwiyspy hiatal hernia. 3. Intermediate dens ity lesion in the right renal cortex may correlate with a hemorrhagic/proteina ceous cyst. This could be further characterized with CT or MRI renal protocol. 4. Biliary ductal dilatation likely related to postcholecystectomy state. Recommend clinical correlation. Electronically authenticated by: MARQUES ROSEN Date: 08/28/2024 07:52 Dictated By: Nisha Rosen M.D. Signed By: 08/28/24 0755 DD/ 075 TD/TT: Planning Analyst: Troponin I High Sensitivity Reviewed date:08/28/2024 08:57:50 AM Interpretation: Performing Lab: Notes/Report: [facility] , Troponin I High Sensitivity [...] Performing Lab: see note ML - [facility] LB MAGNESIUM Reviewed date:09/03/2024 08:18:59 AM Interpretation: Performing Lab: Notes/Report: [facility] , Magnesium 1.9 1.8-2.4 mg/dL Performing Lab: see note ML - [facility] LB PROF CHEM 8 (BAS METB) Reviewed date:09/03/2024 08:18:59 AM Interpretation: Performing Lab: Notes/Report: [facility] , Sodium 141 136-145 mmol/L [...] mg/dL Performing Lab: see note ML - [facility] LB CBC AUTO DIFF Reviewed date:10/01/2024 12:35:56 PM Interpretation: Performing Lab: Notes/Report: [facility] , White Blood Count 9.4 [...] 3/uL Performing Lab: see note ML - [facility] LB CPK Reviewed date:10/01/2024 12:35:56 PM Interpretation: Performing Lab: Notes/Report: [facility] , Creatine Kinase 36 26-192 U/L Performing Lab: see note - [facility] LB LACTATE or LACTIC ACID Reviewed date:10/01/2024 12:35:56 PM Interpretation: Performing Lab: Notes/Report: [facility] , Lactate/Lactic Acid 2.4 0.4-2.0 mmol/L RESULT S CALLED TO EUN LEIGH Performing Lab: see note - [facility] LB PROF 14(COMP METB) Reviewed date:10/01/2024 12:35:56 PM Interpretation: Performing Lab: Notes/Report: [facility] , Sodium 139 136-145 mmol/L [...] Performing Lab: see note ML - [facility] LB Troponin I High Sensitivity Reviewed date:10/01/2024 12:35:56 PM Interpretation: Performing Lab: Notes/Report: [facility] , Troponin I High Sensitivity [...] Performing Lab: see note ML - [facility] LB Troponin I High Sensitivity Reviewed date:06/04/2024 09:49:37 AM Interpretation: Performing Lab: Notes/Report: [facility] , Troponin I High Sensitivity [...] INFORMATION. Performing Lab: see note ML - [facility] LB UA Micro, reflex to culture Reviewed date:10/01/2024 12:35:56 PM Interpretation: Performing Lab: Notes/Report: [facility] , Color Urine YELLOW YELLOW Clarity Urine CLEAR CLEAR Specific [place] Urine 1.025 1.005-1.025 pH Urine 6.0 5.0-9.0 [...] Performing Lab: see note ML - [facility] LB ECG 12 lead Reviewed date:10/01/2024 12:35:56 PM Interpretation: Performing Lab: Notes/Report: Source Facility: [facility]-[address] [place] [address] [place] [address] Electrocardiograph Report Signed Patient: CONSTANTINO MENDIOLA MR#: [id number] : 1970 Acct:[id number] Age/Sex: 54 / F ADM Date: 09/28/24 Loc: ER Attending Dr: Ordering Physician: Neo Wilson Date of Service: 09/28/24 Procedure(s): ECG 12 lead Accession Number(s): [id number] cc: [facility] Test Date: 2024-09-28 Pat Name: CONSTANTINO MENDIOLA Department: Room: - 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 Signed By: 10/01/24 0922 DD/ 1525 TD/TT: Planning Analyst: XR chest 1V Reviewed date:10/01/2024 12:35:56 PM Interpretation: Performing Lab: Notes/Report: Source Facility: [place] [address] XRay Report Signed Patient: CONSTANTINO MENDIOLA MR#: [id number] : 1970 Acct:[id number] Age/Sex: 54 / F ADM Date: 09/28/24 Loc: ER Attending Dr: Ordering Physician: Neo Wilson Date of Service: 09/28/24 Procedure(s): XR chest 1V Accession Number(s): [id number] cc: JUDI YOUSSEF ; Neo Wilson [place] [address] Patient Name: CONSTANTINO MENDIOLA MRN: [id number] date: 1970 Sex: F Assigned Patient Location: ER Current Patient Location: ER Accession/Order Number: [id number] Exam Date: 09/28/2024 15:24 Report Date: 09/28/2024 [...] Dictated By: Marcelo Bingham M.D. Signed By: 09/28/241549 DD/ 47 TD/TT: Planning Analyst: [address] [address] XRay Report Signed Patient: ARIELLE MENDIOLA MR#: [id number] : 1970 Acct:[id number] Age/Sex: 54 / F ADM Date: 09/28/24 Loc: ER Attending Dr: Ordering Physician: Neo Wilson Date of Service: 09/28/24 Procedure(s): XR chest 1V Accession Number(s): [id number] cc: JUDI YOUSSEF ; Neo Wilson [place] [address] Patient Name: CONSTANTINO MENDIOLA MRN: [id number] date: 1970 Sex: F Assigned Patient Location: ER Current Patient Loca tion: ER Accession/Order Numb er: [id number] Exam Date: 09/28/2024 15:24 Report Date: 09/28/2024 [...] Dictated By: Jorge Bingham M.D. Signed By: 09/28/241549 DD/ 47 TD/TT: Planning Analyst: PROF Fonseca(COMP METB) Reviewed date:06/04/2024 09:49:37 AM Interpretation: Performing Lab: Notes/Report: [facility] , Sodium 140 136-145 mmol/L [...] 1.0 Performing Lab: see note ML - [facility] LB LIPASE Reviewed date:06/04/2024 09:49:37 AM Interpretation: Performing Lab: Notes/Report: [facility] , Lipase 42.0 16.0-77.0 U/L Performing Lab: see note ML - [facility] LB LACTATE or LACTIC ACID Reviewed date:06/04/2024 09:49:37 AM Interpretation: Performing Lab: Notes/Report: [facility] , Lactate/Lactic Acid 1.1 0.4-2.0 mmol/L Performing Lab: see note ML - [facility] LB CBC AUTO DIFF Reviewed date:06/04/2024 09:49:37 AM Interpretation: Performing Lab: Notes/Report: [facility] , White Blood Count 6.5 [...] 3/uL Performing Lab: see note ML - [facility] LB CT abdomen pelvis wo con Reviewed date:04/16/2024 04:53:42 PM Interpretation: Performing Lab: Notes/Report: Source Facility: [place] [address] CT Scan Report Signed Patient: CONSTANTINO MENDIOLA MR#: [id number] : 1970 Acct:[id number] Age/Sex: 53 / F ADM Date: 04/13/24 Loc: ER Attending Dr: Ordering Physician: Aicha Wooten Date of Service: 04/13/24 Procedure(s): CT abdomen pelvis wo con Accession Number(s): [id number] cc: JUDI YOUSSEF [place] [address] Patient Name: CONSTANTINO MENDIOLA MRN: [id number] date: 1970 Sex: F Assigned Patient Location: ER Current Patient Location: ER Accession/Order Number: [id number] Exam Date: 04/13/2024 14:43 Report Date: 04/13/2024 [...] Signed By: 04/13/24 1532 DD/ 1530 TD/TT: Planning Analyst: [place] [address] CT Scan Report Signed Patient: ARIELLE MENDIOLA MR#: [id number] : 1970 Acct:[id number] Age/Sex: 53 / F ADM Date: 04/13/24 Loc: ER Attending Dr: Ordering Physician: Aicha Wooten Date of Service: 04/13/24 Procedure(s): CT abd omen pelvis wo con Accession Number(s): [id number] cc: JUDI YOUSSEF [facility] [address] [place] [id number] Patient Name: CONSTANTINO MENDIOLA MRN: [id number] date: 1970 Sex: F Assigned Patient Location: ER Current Patient Loca tion: ER Accession/Order Numb er: [id number] Exam Date: 04/13/2024 14:43 Report Date: 04/13/2024 [...] Signed By: 04/13/24 1532 DD/ 1530 TD/TT: Planning Analyst: ECG 12 lead Reviewed date:04/16/2024 04:53:42 PM Interpretation: Performing Lab: Notes/Report: Source Facility: [place] [address] [place] [address] Electrocardiograph Report Signed Patient: CONSTANTINO MENDIOLA MR#: [id number] : 1970 Acct:[id number] Age/Sex: 53 / F ADM Date: 04/13/24 Loc: ER Attending Dr: Ordering Physician: Aicha Wooten Date of Service: 04/13/24 Procedure(s): ECG 12 lead Accession Number(s): [id number] cc: [facility] Test Date: 2024-04-13 Pat Name: CONSTANTINO MENDIOLA Department: Room: - Gender: 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 Signed By: 04/13/24 1834 DD/ 1458 TD/TT: Planning Analyst: Troponin I High Sensitivity Reviewed date:04/16/2024 04:53:42 PM Interpretation: Performing Lab: Notes/Report: [facility] , Troponin I High Sensitivity [...] Performing Lab: see note ML - [facility] LB URINE MICROSCOPIC ONLY Reviewed date:04/16/2024 04:53:42 PM Interpretation: Performing Lab: Notes/Report: [facility] , WBC Urine NONE SEEN NONE SEEN #/HPF RBC Urine 0-2 0-2 #/HPF Bacteria Urine NONE SEEN NONE SEEN #/HPF Mucus Urine NONE SEEN NONE SEEN Squamous Epithelial Cell Urine RARE NONE/RARE #/LPF Crystals Seen? None Seen None Seen #/HPF Cast Seen? NONE SEEN NONE SEEN #/LPF Urine Culture Indicated NO Performing Lab: see note ML - [facility] LB UA (CLEAN or CATCH) EDUCATIONAL ADMINISTRATION TEACHER or M ICRO IF IND. Reviewed date:04/16/2024 04:53:42 PM Interpretation: Performing Lab: Notes/Report: [facility] , Color Urine LT. YELLOW YELLOW Clarity Urine CLEAR CLEAR Specific [place] Urine 1.020 1.005-1.025 pH Urine 5.5 5.0-9.0 Protein Urine NEGATIVE NEG/TRACE mg/dL Glucose Urine UA NEGATIVE NEGATIVE mg/dL Bilirubin Urine NEGATIVE NEGATIVE Ketones Urine NEGATIVE NEGATIVE mg/dL Blood Urine TRACE-I NEGATIVE Nitrite Urine NEGATIVE NEGATIVE Urobilinogen Urine 0.2 0.2-1.0 EU/dL Leukocyte Esterase Urine NEGATIVE NEGATIVE Urine Microscopic Indicated YES Performing Lab: see note ML - [facility] PROF 14(COMP METB) Reviewed date:04/16/2024 04:53:42 PM Interpretation: Performing Lab: Notes/Report: [facility] , Sodium 141 136-145 mmol/L [...] 1.0 Performing Lab: see note ML - [facility] LB PEPPER w/Reflex Reviewed date:12/20/2024 11:55:33 AM Interpretation: Performing Lab: Notes/Report: [facility] , PEPPER Direct Negative Negative Performed at: - [facility] [address] [id number] Heavy Mobile Equipment Repairer: Shawn Louis PhD, Phone: [phone] Performing Lab: see note LC - [facility] LB LIPASE Reviewed date:04/16/2024 04:53:42 PM Interpretation: Performing Lab: Notes/Report: [facility] , Lipase 39.0 16.0-77.0 U/L Performing Lab: see note ML - [facility] LB CT chest wo con Reviewed date:12/18/2024 02:35:38 PM Interpretation: Performing Lab: Notes/Report: Source Facility: [place] [address] CT Scan Report Signed Patient: CONSTANTINO MENDIOLA MR#: [id number] : 1970 Acct:[id number] Age/Sex: 54 / F ADM Date: 12/18/24 Loc: ER Attending Dr: Ordering Physician: Raymundo Pisano M.D. Date of Service: 12/18/24 Procedure(s): CT chest wo con Accession Number(s): [id number] cc: JUDI YOUSSEF [place] [id number] Patient Name: CONSTANTINO MENDIOLA MRN: [id number] date: 1970 Sex: F Assigned Patient Location: ER Current Patient Location: ER Accession/Order Number: [id number] Exam Date: 12/18/2024 10:04 Report Date: 12/18/2024 [...] Columba Domínguez M.D.12/18/2024 10:25 AM Dictation Location: [place] [address] Electronically authenticated by: [id number] Y Date: 12/18/2024 10:25 Dictated By: Columba Domínguez M.D. Signed By: 12/18/24 1028 DD/ 1025 TD/TT: Planning Analyst: [place] [address] CT Scan Report Signed Patient: ARIELLE MENDIOLA MR#: [id number] : 1970 Acct:[id number] Age/Sex: 54 / F ADM Date: 12/18/24 Loc: ER Attending Dr: Ordering Physician: Raymundo Pisano M.D. Date of Service: 12/18/24 Procedure(s): CT zena[address] wo con Accession Number(s): [id number] cc: JUDI YOUSSEF [address] [address] Patient Name: CONSTANTINO MENDIOLA MRN: [id number] date: 1970 Sex: F Assigned Patient Location: ER Current Patient Loca tion: ER Accession/Order Numb er: [id number] Exam Date: 12/18/2024 10:04 Report Date: 12/18/2024 [...] Columba Domínguez M.D.12/18/2024 10:25 AM Dictation Location: [place] [address] Electronically authenticated by: [id number] Y Date: 12/18/2024 10:25 Dictated By: Columba Domínguez M.D. Signed By: 12/18/24 1028 DD/ 1025 TD/TT: Planning Analyst: CT abdomen pelvis wo con Reviewed date:12/18/2024 02:35:38 PM Interpretation: Performing Lab: Notes/Report: Source Facility: [place] [address] CT Scan Report Signed Patient: CONSTANTINO MENDIOLA MR#: [id number] : 1970 Acct:[id number] Age/Sex: 54 / F ADM Date: 12/18/24 Loc: ER Attending Dr: Ordering Physician: Raymundo Pisano M.D. Date of Service: 12/18/24 Procedure(s): CT abdomen pelvis wo con Accession Number(s): [id number] cc: JUDI YOUSSEF [place] [address] Patient Name: CONSTANTINO MENDIOLA MRN: [id number] date: 1970 Sex: F Assigned Patient Location: ER Current Patient Location: ER Accession/Order Number: [id number] Exam Date: 12/18/2024 10:04 Report Date: 12/18/2024 [...] Columba Domínguez M.D.12/18/2024 10:25 AM Dictation Location: [place] [address] Electronically authenticated by: [id number] Y Date: 12/18/2024 10:25 Dictated By: Columba Domínguez M.D. Signed By: 12/18/24 1027 DD/ 1025 TD/TT: Planning Analyst: [place] [address] CT Scan Report Signed Patient: ARIELLE MENDIOLA MR#: [id number] : 1970 Acct:[id number] Age/Sex: 54 / F ADM Date: 12/18/24 Loc: ER Attending Dr: Ordering Physician: Raymundo Pisano M.D. Date of Service: 12/18/24 Procedure(s): CT abd omen pelvis wo con Accession Number(s): [id number] cc: JUDI YOUSSEF [place] [id number] Patient Name: CONSTANTINO MENDIOLA MRN: [id number] date: 1970 Sex: F Assigned Patient Location: ER Current Patient Loca tion: ER Accession/Order Numb er: [id number] Exam Date: 12/18/2024 10:04 Report Date: 12/18/2024 [...] Columba Domínguez M.D.12/18/2024 10:25 AM Dictation Location: [place] [address] Electronically authenticated by: [id number] Y Date: 12/18/2024 10:25 Dictated By: Columba Domínguez M.D. Signed By: 12/18/24 1027 DD/ 1025 TD/TT: Planning Analyst: LACTATE or LACTIC ACID Reviewed date:04/16/2024 04:53:42 PM Interpretation: Performing Lab: Notes/Report: [facility] , Lactate/Lactic Acid 1.0 0.4-2.0 mmol/L Performing Lab: see note - [facility] LB PROF 14(COMP METB) Reviewed date:01/10/2025 11:54:39 AM Interpretation: Performing Lab: Notes/Report: [facility] , Sodium 143 136-145 mmol/L [...] Performing Lab: see note ML - [facility] LB CBC AUTO DIFF Reviewed date:04/16/2024 04:53:42 PM Interpretation: Performing Lab: Notes/Report: [facility] , White Blood Count 7.7 [...] Performing Lab: see note ML - [facility] LB PROF CHEM 8 (BAS METB) Reviewed date:04/06/2024 11:34:29 AM Interpretation: Performing Lab: Notes/Report: [facility] , Sodium 142 136-145 mmol/L [...] Performing Lab: see note ML - [facility] LB ECG 12 lead Reviewed date:03/20/2025 10:01:02 AM Interpretation: Performing Lab: Notes/Report: Source Facility: [facility] [place] [address] [place] [address] Electrocardiograph Report Signed Patient: CONSTANTINO MENDIOLA MR#: [id number] : 1970 Acct:[id number] Age/Sex: 54 / F ADM Date: 03/14/25 Loc: ER Attending Dr: Ordering Physician: He Lama Date of Service: 03/14/25 Procedure(s): ECG 12 lead Accession Number(s): [id number] cc: [facility] Test Date: 2025-03-14 Pat Name: CONSTANTINO MENDIOLA Department: Room: - 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 Signed By: 03/19/25 1308 DD/ 13 TD/TT: Planning Analyst: CT abdomen pelvis w con Reviewed date:03/18/2025 09:31:59 AM Interpretation: Performing Lab: Notes/Report: Source Facility: [place] [address] CT Scan Report Signed Patient: CONSTANTINO MENDIOLA MR#: [id number] : 1970 Acct:[id number] Age/Sex: 54 / F ADM Date: 03/14/25 Loc: ER Attending Dr: Ordering Physician: He Lama Date of Service: 03/14/25 Procedure(s): CT abdomen pelvis w con Accession Number(s): [id number] cc: JUDI YOUSSEF [place] [address] Patient Name: CONSTANTINO MENDIOLA MRN: [id number] date: 1970 Sex: F Assigned Patient Location: ER Current Patient Location: ED.MAIN Accession/Order Number: [id number] Exam Date: 03/14/2025 20:59 Report Date: 03/14/2025 [...] GI: Hiatal hernia with adjacent postsurgical changes. Bkcp-pd-efxuyfco retained stool within colon. No bowel obstruction. [...] Casey M.D. 03/14/2025 9:06 PM Dictation Location: [place] [address] Electronically authenticated by: [id number] Y Date: 03/14/2025 21:06 Dictated By: Surendra Casey M.D. Signed By: 03/14/252108 DD/ 05 TD/TT: Planning Analyst: [place] [address] CT Scan Report Signed Patient: ARIELLE MENDIOLA MR#: [id number] : 1970 Acct:[id number] Age/Sex: 54 / F ADM Date: 03/14/25 Loc: ER Attending Dr: Ordering Physician: He Lama Date of Service: 03/14/25 Procedure(s): CT abd omen pelvis w con Accession Number(s): [id number] cc: JUDI YOUSSEF [place] [id number] Patient Name: CONSTANTINO MENDIOLA MRN: [facility]:[id number] date: 1970 Sex: F Assigned Patient Location: ER Current Patient Loca tion: ED.MAIN Accession/Order Numb er: [id number] Exam Date: 03/14/2025 20:59 Report Date: 03/14/2025 [...] Hiatal hernia wi th adjacent postsurgical changes. Enlp-pc-vmggqfgh retained stool withi n colon. No bowel [...] Casey M.D. 03/14/2025 9:06 PM Dictation Location: [place] [address] Electronically authenticated by: [id number] Y Date: 03/14/2025 21:06 Dictated By: Zoraida Casey M.D. Signed By: 03/14/252108 DD/ 05 TD/TT: Planning Analyst: CBC AUTO DIFF Reviewed date:03/20/2025 10:39:27 AM Interpretation: Performing Lab: Notes/Report: [facility] , White Blood Count 5.3 4.0-11.0 10 3/uL Red Blood Count 4.30 4.20-5.40 10 6/uL Hemoglobin 12.4 12.0-16.0 g/dL Hematocrit 38.8 36.0-48.0 % Mean Corpuscular Volume 90.2 81.0-99.0 fL Mean Corpuscular Hemoglobin 28.8 26.7-34.0 pg Mean Corpuscular HGB Conc 32.0 29.9-35.2 g/dL Red Cell Distribution Width 12.8 11.0-15.0 % Platelet Count 353 150-450 10 3/uL Mean Platelet Volume 9.1 9.5-13.5 fL Neutrophils Percent Auto 53.3 43.0-75.0 % Lymphocytes Percent Auto 34.3 20.5-60.0 % Monocytes Percent Auto 6.3 1.7-12.0 % Eosinophils Percent Auto 5.3 0.9-7.0 % Basophils Percent Auto 0.6 0.2-2.0 % Immature Granulocytes Pct Auto 0.2 0.0-0.5 % Neutrophils Absolute Auto 2.8 1.4-6.5 10 3/uL Lymphocytes Absolute Auto 1.8 1.2-3.8 10 3/uL Monocytes Absolute Auto 0.3 0.3-0.8 10 3/uL Eosinophils Absolute Auto 0.3 0.0-0.7 10 3/uL Basophils Absolute Auto 0.0 0.0-0.1 10 3/uL Immature Granulocytes Abs Auto 0.01 0.00-0.03 10 3/uL Performing Lab: see note ML - [facility] LB FREE T3 Reviewed date:03/20/2025 10:39:27 AM Interpretation: Performing Lab: Notes/Report: [facility] , Free T3 2.60 2.18-3.98 pg/mL Performing Lab: see note ML - [facility] LB GLYCOHEMOGLOBIN A1C Reviewed date:03/20/2025 10:39:27 AM Interpretation: Performing Lab: Notes/Report: [facility] , Glycohemoglobin A1C 5.5 4.5-6.2 % ADA RECOMMENDED LIMIT 4.0 - 6.0 ADA THERAPEUTIC TARGET < 7.0 ACTION SUGGESTED > 7.0 Estimated Average Glucose 111 Performing Lab: see note ML - [facility] LB IRON Reviewed date:03/20/2025 10:39:27 AM Interpretation: Performing Lab: Notes/Report: [facility] , Iron 50.0 50.0-170.0 ug/dL Performing Lab: see note - [facility] LB PROF 14(COMP METB) Reviewed date:03/20/2025 10:39:27 AM Interpretation: Performing Lab: Notes/Report: [facility] , Sodium 145 136-145 mmol/L Potassium 4.1 3.5-5.1 mmol/L Chloride 107 98-107 mmol/L Carbon Dioxide 28.2 21.0-32.0 mmol/L Anion Gap 13.9 Glucose 106 74-106 mg/dL Blood Urea Nitrogen 17.0 7.0-18.0 mg/dL Creatinine 0.76 0.55-1.02 mg/dL Estimated GFR ( [place] >60 >=60 mL/min/1.73m 2 Estimated GFR (Non- [place]ar >60 >=60 mL/min/1.73m 2 BUN Creatinine Ratio 22.4 Calcium 9.2 8.5-10.1 mg/dL Bilirubin Total 0.3 0.2-1.0 mg/dL Aspartate Amino Transferase 17 15-37 U/L Alanine Aminotransferase 29 14-59 U/L Alkaline Phosphatase 151 46-116 U/L Total Protein 7.0 6.4-8.2 g/dL Albumin Level 3.6 3.4-5.0 g/dL Globulin 3.4 Albumin Globulin Ratio 1.1 Performing Lab: see note ML - [facility] LB T4 Reviewed date:03/20/2025 10:39:27 AM Interpretation: Performing Lab: Notes/Report: [facility] , T4 Thyroxine 6.60 4.80-13.90 ug/dL Performing Lab: see note ML - [facility] LB TSH Reviewed date:03/20/2025 10:39:27 AM Interpretation: Performing Lab: Notes/Report: [facility] , Thyroid Stimulating Hormone 8.406 0.358-3.740 uIU/mL Performing Lab: see note - [facility] LB VITAMIN D 25 [place] Reviewed date:03/20/2025 10:39:27 AM Interpretation: Performing Lab: Notes/Report: [facility] , Vitamin D 22.6 <20 ng/mL Vit D deficient 20-<30 ng/mL Vit D insufficient 30-100 ng/mL Vit D sufficient >100 ng/mL Potential Toxicity Performing Lab: see note - [facility] LB Vitamin B12 Reviewed date:03/20/2025 10:39:27 AM Interpretation: Performing Lab: Notes/Report: [facility] , Vitamin B12 121 854-2217 pg/mL Performed at: [facility] [address] [id number] Heavy Mobile Equipment Repairer: Shawn Louis PhD, Phone: [phone] Performing Lab: see note - [facility] LB UA (Urinalysis, Dipstix only - w/o [...] ESTERASE (PETER) + NEG - NEG MG/DL Urine Culture, Routine Reviewed date:10/02/2024 10:29:54 AM [...] Status Urine Culture, Routine [facility], Routine Organism: Escherichia coli. : O:ESCHCO Isolated Organism: 1.1 Antibiotic Interpretation RHONDA Status Urine Culture, Routine [address] [place], [place] [id number] Urine Culture, Routine Organism: Escherichia coli. : O:ESCHCO Isolated Organism: 1.1 Antibiotic Interpretation RHONDA Status Urine Culture, Routine Heavy Mobile Equipment Repairer: Devante Louis PhD, Phone: [phone] Urine Culture, Routine Organism: Escherichia coli. : [...] LC - [facility] LB SEE REPORT - Policy Cancellation Clerk Id information not found for OBX-specific moving picture producer legend US renal BI Reviewed date:09/17/2024 10:44:15 AM Interpretation: Performing Lab: Notes/Report: Source Facility: [place] [address] Ultrasound Report Signed Patient: CONSTANTINO MENDIOLA MR#: [id number] : 1970 Acct:[id number] Age/Sex: 54 / F ADM Date: 09/14/24 Loc: US Attending Dr: JUDI YOUSSEF Ordering Physician: JUDI YOUSSEF Date of Service: 09/14/24 Procedure(s): US renal BI Accession Number(s): [id number] cc: JUDI YOUSSEF [place] [address] Patient Name: CONSTANTINO MENDIOLA MRN: [id number] date: 1970 Sex: F Assigned Patient Location: US Current Patient Location: US Accession/Order Number: [id number] Exam Date: 09/14/2024 08:40 Report Date: 09/14/2024 [...] M.D. Signed By: 09/14/24923 DD/ 0 TD/TT: Planning Analyst: [place] [address] Ultrasound Report Signed Patient: ARIELLE MENDIOLA MR#: [id number] : 1970 Acct:[id number] Age/Sex: 54 / F ADM Date: 09/14/24 Loc: US Attending Dr: JUDI YOUSSEF Ordering Physician: JUDI YOUSSEF Date of Service: 09/14/24 Procedure(s): US renal BI Accession Number(s): [id number] cc: JUDI YOUSSEF [address] [address] Patient Name: CONSTANTINO MENDIOLA MRN: [id number] date: 1970 Sex: F Assigned Patient Location: US Current Patient Loca tion: US Accession/Order Numb er: [id number] Exam Date: 09/14/2024 08:40 Report Date: 09/14/2024 [...] M.D. Signed By: 09/14/24923 DD/ 0 TD/TT: Planning Analyst: PROF Fonseca(COMP METB) Reviewed date:09/07/2024 11:32:59 AM Interpretation: Performing Lab: Notes/Report: [facility] , Sodium 143 136-145 mmol/L Potassium 3.6 [...] Performing Lab: see note ML - [facility] LB VITAMIN D 25 [place] Reviewed date:11/27/2024 03:16:31 PM Interpretation: Performing Lab: Notes/Report: [facility] , Vitamin D 40.2 <20 ng/mL Vit D deficient 20-<30 ng/mL Vit D insufficient 30-100 ng/mL Vit D sufficient >100 ng/mL Potential Toxicity Performing Lab: see note ML - [facility] LB Vitamin B12 Reviewed date:11/28/2024 11:53:15 AM Interpretation: Performing Lab: [facility]Report: [facility] , Vitamin B12 855 355-0413 pg/mL Performed at: [address] [id number] Heavy Mobile Equipment Repairer: Shawn Louis PhD, Phone: [phone] Performing Lab: see note - [facility] LB CBC AUTO DIFF Reviewed date:12/18/2024 02:35:37 PM Interpretation: Performing Lab: Notes/Report: [facility] , White Blood Count 5.7 [...] 10 3/uL Performing Lab: see note - [facility] LB DRUG SCREEN RAPID (URINE) Reviewed date:12/18/2024 02:35:37 PM Interpretation: Performing Lab: Notes/Report: [facility] , Cannabinoid Screen Urine NEGATIVE [...] ng/mL Performing Lab: see note ML - [facility] LB LIPASE Reviewed date:12/18/2024 02:35:37 PM Interpretation: Performing Lab: Notes/Report: [facility] , Lipase 26.0 16.0-77.0 U/L Performing Lab: see note ML - [facility] LB LIVER PROFILE Reviewed date:12/18/2024 02:35:37 PM Interpretation: Performing Lab: Notes/Report: [facility] , Bilirubin Total 0.4 0.2-1.0 mg/dL Bilirubin Direct 0.1 0.0-0.2 mg/dL Aspartate Amino Transferase 16 15-37 U/L Alanine Aminotransferase 17 14-59 U/L Alkaline Phosphatase 145 46-116 U/L Total Protein 6.6 6.4-8.2 g/dL Albumin Level 3.4 3.4-5.0 g/dL Globulin 3.2 Albumin Globulin Ratio 1.1 Performing Lab: see note ML - [facility] LB PROF CHEM 8 (BAS METB) Reviewed date:12/18/2024 02:35:37 PM Interpretation: Performing Lab: Notes/Report: [facility] , Sodium 140 136-145 mmol/L [...] 9.0 8.5-10.1 mg/dL Performing Lab: see note - [facility] LB RHEUMATOID FACTOR Reviewed date:12/20/2024 11:55:33 AM Interpretation: Performing Lab: Notes/Report: [facility] , Rheumatoid Factor (RF) <10.0 <14.0 IU/mL Performed at: [facility] [address] [id number] Heavy Mobile Equipment Repairer: Shawn Louis PhD, Phone: [phone] Performing Lab: see note - [facility] LB UA (CLEAN or CATCH) EDUCATIONAL ADMINISTRATION TEACHER or M ICRO IF IND. Reviewed date:12/18/2024 02:35:37 PM Interpretation: Performing Lab: Notes/Report: [facility] , Color Urine LT. YELLOW YELLOW Clarity Urine CLEAR CLEAR Specific [place] Urine 1.020 1.005-1.025 pH Urine 6.0 5.0-9.0 Protein Urine NEGATIVE NEG/TRACE mg/dL Glucose Urine UA NEGATIVE NEGATIVE mg/dL Bilirubin Urine NEGATIVE NEGATIVE Ketones Urine NEGATIVE NEGATIVE mg/dL Blood Urine TRACE-I NEGATIVE Nitrite Urine NEGATIVE NEGATIVE Urobilinogen Urine 0.2 0.2-1.0 EU/dL Leukocyte Esterase Urine MODERATE NEGATIVE Urine Microscopic Indicated YES Performing Lab: see note - [facility] LB URINE MICROSCOPIC ONLY Reviewed date:12/18/2024 02:35:38 PM Interpretation: Performing Lab: Notes/Report: [facility] , WBC Urine 5-10 NONE SEEN #/HPF RBC Urine 2-5 0-2 #/HPF Bacteria Urine TRACE NONE SEEN #/HPF Mucus Urine TRACE NONE SEEN Squamous Epithelial Cell Urine FEW NONE/RARE #/LPF Crystals Seen? None Seen None Seen #/HPF Cast Seen? NONE SEEN NONE SEEN #/LPF Urine Culture Indicated YES-[facility] Performing Lab: see note ML - [facility] LB Urine Culture - [facility] Reviewed date:12/21/2024 08:36:06 AM Interpretation: Performing Lab: Notes/Report: [facility] , Urine Culture - [facility] See Below For Report Urine Culture - [facility] Testing performed at [facility] O:STRAGA Isolated Urine Culture - [facility] Organism Comments Urine Culture - [facility] [address], [place] [address] Urine Culture - [facility] Testing performed at [facility] O:STRAGA Isolated Urine Culture - [facility] Organism Comments Urine Culture - [facility] See Below For Report Urine Culture - [facility] Testing performed at [facility] O:STRAGA Isolated Urine Culture - [facility] Organism Comments Urine Culture - [facility] See Below For Report Urine Culture - [facility] Testing performed at [facility] O:STRAGA Isolated Urine Culture - [facility] Organism Comments [facility]rine Culture - [facility] 15,000 CFU/ML Urine Culture - [facility] Testing performed at [facility] O:STRAGA Isolated Urine Culture - [facility] Organism Comments Urine Culture - [facility] Urine Culture - [facility] Testing performed at [facility] O:STRAGA Isolated Urine Culture - [facility] Organism Comments Urine Culture - [facility] * This is a correct ed result. * Urine Culture - [facility] Testing performed at [facility] O:STRAGA Isolated Urine Culture - [facility] Organism Comments Urine Culture - [facility] Urine Culture - [facility] Testing performed at [facility] O:STRAGA Isolated Urine Culture - [facility] Organism Comments Urine Culture - [facility] A prior result that was reported as final has been changed. Urine Culture - [facility] Testing performed at [facility] O:STRAGA Isolated Urine Culture - [facility] Organism Comments Performing Lab: see note ML - [facility] LB SEE REPORT - Policy Cancellation Clerk Id information not found for OBX-specific moving picture producer legend CBC AUTO DIFF Reviewed date:01/10/2025 11:54:39 AM Interpretation: Performing Lab: Notes/Report: [facility] , White Blood Count 5.5 4.0-11.0 10 [...] 3/uL Performing Lab: see note ML - [facility] LB Levetiracetam (Keppra), S Reviewed date:01/11/2025 12:15:06 PM Interpretation: Performing Lab: Notes/Report: [facility] , Levetiracetam (Keppra), S 25.1 10.0-40.0 ug/mL Performed at: [address] [id number] Heavy Mobile Equipment Repairer: Suresh Carranza MD, Phone: [phone] Performing Lab: see note - [facility] LB CBC AUTO DIFF Reviewed date:01/21/2025 01:56:32 PM Interpretation: Performing Lab: Notes/Report: [facility] , White Blood Count 6.6 [...] Performing Lab: see note ML - [facility] LB PROF CHEM 8 (BAS METB) Reviewed date:01/21/2025 01:56:32 PM Interpretation: Performing Lab: Notes/Report: [facility] , Sodium 144 136-145 mmol/L [...] 9.6 8.5-10.1 mg/dL Performing Lab: see note - [facility] Troponin I High Sensitivity Reviewed date:03/15/2025 01:33:25 PM Interpretation: Performing Lab: Notes/Report: [facility] , Troponin I High Sensitivity 29.0 4.0-51.3 [...] CLINICAL INFORMATION. 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 9) Diagnosis 3 Hiatal hernia (K44.9 ) Referral Organization [facility] Referring Provider First Name Judi Referring Provider Last Name Mikael [facility] Referred Provider Anai Forbes Referred Provider Specialty Gastroentero logy Referral Priority Routine Diagnosis 1 Abdominal pain (R10. 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 Problem 608137858 Functional dyspepsia (K30) Active confirmed Problem Gastroparesis (033128916) Gastroparesis (K31.84) Active confirmed Problem Gastroesophageal reflux disease (162540301) GERD (gastroesophageal reflux disease) (K21.9) Active confirmed Problem Hypertension (71430609) HTN (hypertension) (I10) Active confirmed Problem Palpitations (33733346) Palpitation (R00.2) Active confirmed Problem Tachycardia (7259271) Tachycardia (R00.0) Active confirmed Problem Depression (968622135) Depression (F32.9) Active confirmed Problem Degeneration of lumbar intervertebral disc (91250391) Lumbar degenerative disc disease (M51.36) Active confirmed Problem Urinary tract infectious disease (52853940) UTI (urinary tract infection) (N39.0) Active confirmed Problem Vitamin D deficiency (05849889) Vitamin D deficiency (E55.9) Active confirmed Problem Dysphagia (27223069) Dysphagia (R13.10) Active confirmed Problem Hypoglycemia (001813882) Hypoglycemia (E16.2) Active confirmed Problem Diverticulitis (992076649) Diverticulitis (K57.92) Active confirmed Problem Renal mass (462926182) Renal mass (N28.89) Active confirmed Problem Neutropenia (989981294) Neutropenia (D70.9) Active confirmed Problem Iron deficiency anemia (11347936) Anemia, iron deficiency (D50.9) Active confirmed Problem Gastro-esophageal reflux (830219419) Gastro-esophageal reflux (K21.9) Active confirmed Problem Ileus (976750898) Ileus (K56.7) Active confirme d Problem Malnutrition of moderate degree (Horner: 60% to less than 75% of standard weight) (85958922) Moderate protein malnutrition (E44.0) Active confirmed Problem Intestinal obstruction (84903406) SBO (small bowel obstruction) (K56.609) Active confirmed Vital Signs Blood pressure diastolic 72 mm Hg 03/19/2025 Height 67 in 03/19/2025 Blood pressure systolic 130 mm Hg 03/19/2025 Weight 188 lbs 03/19/2025 BMI 29.44 kg/m2 03/19/2025 Encounters Encounter Location Date Provider Diagnosis [address] [place] [address] 04/27/2024 Judi Youssef Hypoglycemia E16.2 [facility] [address] [facility] [place] [address] 09/03/2024 Judi Youssef Ileus K56.7 [facility] [address] [facility] [place] [address] 10/26/2024 Judi Youssef Seizure R56.9 [facility] [address] [facility] [place] [address] 12/21/2024 Judi Youssef Muscle strain T14.8X XA [facility] [address] [facility] [place] [address] 02/07/2025 Judi Youssef UTI (urinary tract infection) N39.0 ; HTN (hypertension) I10 and Functional dyspepsia K30 [facility] [address] [facility] [place] [address] 03/19/2025 Judi Youssef Fatigue R53.83 ; 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 [place] [address] 09/21/2024 Isaac Izaguirre [facility] [address] [facility] [place] [address] 11/19/2024 Judi Youssef Vitamin D deficiency E55.9 and Vitamin B12 deficiency E53.8 [facility] [address] [facility] [place] [address] 11/27/2024 Judi Youssef [facility] [address] [facility] [place] [address] 11/28/2024 Judi Youssef [facility] [address] [facility] [place] [address] 01/09/2025 Judi Youssef [facility] [address] [facility] [place] [address] 01/10/2025 Judi Youssef [facility] [address] [facility] [place] [address] 03/18/2025 Judi Youssef Renal mass N28.89 [facility] [address] [facility] [place] [address] 03/19/2025 Judi Youssef Assessments Encounter Date Diagnosis (ICD [...] dose to 40 bp check 1-2 weeks 03/19/2025 Fatigue (ICD-10 - R53.83) continue with sleep study 03/19/2025 Dyskinesia of esophagus (ICD-10 - K22.4) 07/19/2024 Renal lesion (ICD-10 - N28.9) 11/19/2024 Vitamin D deficiency (ICD-10 - E55.9) 03/18/2025 Renal mass (ICD-10 - N28.89) 11/19/2024 Vitamin B12 deficiency (ICD-10 - E53.8) 03/19/2025 Abdominal pain (ICD-10 - R10.9) 02/07/2025 Functional dyspepsia (ICD-10 - K30) phenergan not helping reglan has helped in past 03/19/2025 Hiatal hernia (ICD-10 - K44.9) 12/21/2024 Other has fu with cardiology and [...] IRON, TOTAL 03/19/2025 LIPID PANEL (CHOL/TRIG/HDL/LDL) 12/30/19 24 CBC WITH [...] (T4/TSH/FREE T3) 4 THYROID PANEL (T4/TSH/FREE T3) XR HIP LT [...] ACCESS PPO PLUS LOCAL PLAN [address] [place] [address] [id number] Arielle Mendiolarobles Self - patient is the insured 3 Medical (General) History Medical History History ICD Code Mitrovalve prolapse Acute diverticulitis K57.92 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 08/06 024 bowel obstruction 11/26 bowel obstruction 10/2023 Abd Pain, Vomiting 03/25/2023
--- OUTSIDE RECORDS SUMMARY | 2025-03-21 11:03 | XMS_ITS | Clinical Summary ---
Author Organization [facility] Address [address] [place] [address] Care Team Providers Care Title Insurance Agent Name Role Phone Unallocated, Noms Provider Primary Care Provi christine Judi Tapia MD Unavailable [phone] Nikki Ayoub Unavailable Allergies Active Allergy [...] Department Care Team Description 01/16/2025 Telephone [place] [address] [place] [address] [address] Marbin Wong ARRT Sleep Study Referral 01/07/2025 2:20 PM EDT Office Visit [place] [address] [place] [address] [address] Nikki Ayoub PA Seizure (HCC) (Primary Dx); History of obstructive sleep apnea; Migraine without aura and without status migrainosus, not intractable ; Dizziness 01/07/2025 Bamboo flowsheet [place] [address] [place] [address] [address] Nikki Ayoub PA from Last [...] Last 3 Months Insurance BCBS Care Teams Title Insurance Agent Relationship Specialty Start Date End Date Unallocated, [place] [place], [address] [place] [address] PCP - General 04/25/23 Judi Tapia MD [address] [place] [address] [id number] Referring Physician Family Medicine 04/25/23 Nikki Ayoub PA [address] [place] [address] [phone] Physician Telemarketer Neurology 11/26/24
--- OUTSIDE RECORDS SUMMARY | 2025-03-21 11:03 | XMS_ITS | Clinical Summary ---
Author Organization [facility] Address [address] [place] [address] Care Team Providers Care Registered Nurse Behavioral Health Name Role Phone Judi Tapia REJI Primary Care Provider [phone] Allergies Active Allergy Reactions Criticality Noted Date [...] Description 02/28/2025 9:40 AM EDT Office Visit [place] [address] [place] [address] Elio Heart MD Other chest pain (Primary Dx); CA (dyspnea on exertion); Palpitations; Sinus tachycardia; Essential hypertension; Pure hypercholesterolemia; Obstructive sleep apnea; Overweight (BMI 25.0-29.9); Former smoker 02/04/[address] [facility] [address] [place] [address] Ros Meza MA 01/11/2025 Orders Only [facility] [address] [place] [address] Elio Heart MD Other chest pain (Primary Dx) 12/28/2024 1:20 PM EDT Office Visit [facility] [address] [place] [address] Elio Heart MD Other chest pain (Primary Dx); Palpitations; Sinus tachycardia; CA (dyspnea on exertion); Essential hypertension; Overweight (BMI 25.0-29.9); Former smoker 12/20/[address] [facility] [address] [place] [address] Christina Plummer MA from Last [...] Most Recently Relevant to Health Maintenance Insurance [facility] Care Teams Registered Nurse Behavioral Health Relationship Specialty Start Date End Date Judi Tapia CNP [address] [place] [address] [place] [address] PCP - General Family Medicine 02/14/24
--- OUTSIDE RECORDS SUMMARY | 2025-03-21 11:03 | XMS_ITS | Encounter Summary ---
Author Organization [facility] Address [address] [facility] [address] [facility], [address] [place] [address] Care Team Providers Care Microsoft Developer Name Role Phone Judi Tapia HEAVY EQUIPMENT SALES ASSOCIATE - SOCIAL SERVICES COUNSELOR Primary Care Provide r Encounter Details Date Type Department Care Team ([facility] st Contact Info) Description 03/14/2025 Prep for Procedure [facility] Gastroenterology [address] [facility] [address] [place] [address] Jose Miguel Lucero MD [address] [facility] [address] [place] [address] Social History Tobacco Use Types Packs/Day Years Used Date Smoking Tobacco: Former Cigarettes Smokeless Tobacco: Never Alcohol Use Standard Drinks/Week Comments Yes 0 (1 standard drink = 0.6 oz pur e alcohol) Rare [facility] Utilities Answer Date Recorded In the past 12 months has [employer], gas, oil, or water [employer] threatened to shut off services in your [...] any time in the past 12 m [facility], were you homeless or living in [...] Description 04/01/2025 11:45 AM EDT Hospital Encounter [facility] [address] [place] [address] Jose Miguel Lucero MD [address] [facility] [address] [place] [address] 04/01/2025 11:45 AM EDT - 04/01/2025 12:00 PM EDT Surgery [facility] [address] [place] [address] Jose Miguel Lucero MD [address] [facility] [address] [place] [address] ESOPHAGOGASTRODUODENOSCOPY BIOPSY 04/19/2025 12:30 PM EDT Hospital Encounter [facility] [address] [place] [address] Jose Miguel Lucero MD [address] [address] 04/19/2025 12:30 PM EDT - 04/19/2025 1:00 PM EDT Surgery [facility] [address] [place] [address] Jose Miguel Lucero MD [address] [address] COLORECTAL CANCER SCREENING, NOT HIGH RISK Scheduled Procedures Name Priority Associated Diagnoses Date/Ti me ESOPHAGOGASTRODUODENOSCOPY BIOPSY Gastroesophageal reflux disease, unspecified whether esophagitis present 04/01/2025 11:45 AM EDT COLORECTAL CANCER SCREENING, NOT HIGH RISK Dysphagia, unspecified Screening for colon cancer 04/19/2025 12:30 PM EDT documented as of this encounter Visit Diagnoses Not on filedocumented in this encounter Care Teams Microsoft Developer Relationship Specialty Start Date End Date Judi Tapia, HEAVY EQUIPMENT SALES ASSOCIATE - SOCIAL SERVICES COUNSELOR [address] [place] [address] PCP - General 08/29/24 documented as of this encounter
--- OUTSIDE RECORDS SUMMARY | 2025-03-21 11:03 | XMS_ITS | Encounter Summary ---
Author Organization [facility] Address [address] [place] [address] Care Team Providers Care Steel Fabricating Supervisor Name Role Phone Judi Tapia PIPE RACKER - WILDLIFE BIOLOGY INTERNSHIP Primary Care Provide r Reason for Visit * Reason Onset Date Comments Procedure 02/26/2025 EGD/colon Encounter Details Date Type Department Care Team ([facility] Contact Info) Description 02/26/2025 Telephone [employer] [place] [facility] [address] [facility] [address] [place] [address] Jose Miguel Lucero MD [address] [facility] [address] [place], [place] [id number] Procedure (EGD/colon) Social History Tobacco Use Types Packs/Day Years Used Date Smoking Tobacco: Former Cigarettes Smokeless Tobacco: Never Alcohol Use Standard Drinks/Week Comments Yes 0 (1 standard drink = 0.6 oz pur e alcohol) Rare [facility] Utilities Answer Date Recorded In the past 12 months has [employer], gas, oil, or water [employer] threatened to shut off services in your [...] in the past [address] [facility], were you homeless or living [...] AM EDT Hospital Encounter [facility] [address] [place] [address] Jose Miguel Lucero MD [address] [facility] [address] [place] [address] 04/01/2025 11:45 AM EDT - 04/01/2025 12:00 PM EDT Surgery [facility] [address] [place] [address] Jose Miguel Lucero MD [address] [facility] [address] [place] [address] ESOPHAGOGASTRODUODENOSCOPY BIOPSY 04/19/2025 12:30 PM EDT Hospital Encounter [facility] [address] [place] [address] Jose Miguel Lucero MD [address] [address] 04/19/2025 12:30 PM EDT - 04/19/2025 1:00 PM EDT Surgery [facility] [address] [place] [address] Jose Miguel Lucero MD [address] [address] COLORECTAL CANCER SCREENING, NOT HIGH RISK Scheduled Procedures Name Priority Associated Diagnoses Date/Ti me ESOPHAGOGASTRODUODENOSCOPY BIOPSY Gastroesophageal reflux disease, unspecified whether esophagitis present 04/01/2025 11:45 AM EDT COLORECTAL CANCER SCREENING, NOT HIGH RISK Dysphagia, unspecified Screening for colon cancer 04/19/2025 12:30 PM EDT documented as of this encounter Visit Diagnoses Not on filedocumented in this encounter Care Teams Steel Fabricating Supervisor Relationship Specialty Start Date End Date Judi Tapia, PIPE RACKER - WILDLIFE BIOLOGY INTERNSHIP [facility] [place] [address] PCP - General 08/29/24 documented as of this encounter
--- OUTSIDE RECORDS SUMMARY | 2025-03-21 11:03 | XMS_ITS | Patient Health Record ---
Author Organization [facility] Address [address] [place] [address] Care Team Providers Care Methods And Procedures Analyst Name Role Phone Judi Tapia Primary Care Provider Samuel Steve Unavailable [phone] Nichole Anglin Unavailable Allergies Allergen (clinical drug ingredient) Drug/Non Drug Allergy documented on EMR Reaction Allergy Type Onset Date Status penicillin (uncoded) Unknown Allergy Active Flexeril Unknown Drug Allergy Active Reason For Referral Reason APPROVED ........... ..............PLEASE OBTAIN AUTHORIZATION FOR LEFT KNEE MRI Diagnosis 1 Acute pain of left k nee (M25.562) Referral Organization [facility] Referring Provider First Name Nichole Referring Provider Last Name [facility] Referring Provider Speciality Physician Science Analyst Ref[facility] Referred Address [place], [place], Procedure 1 MRI Joint Lower Ext w/o Dye ([address]) General Notes Aicha Hooper 024 11:40:10 AM >APPROVED PER JAZZYJorge L VALID 07/02/2024-07/31/2024 COPY IN CHART MA NOTIFIED REF FAXED TO Mayda CONLEY Kimberly 07/02/2024 01:00:55 PM >Faxed order to [facility] Referral Priority Routine Reason APPROVED for MRI LT knee Diagnosis 1 Acute pain of left k nee (M25.562) Referral Organization [facility] Referring Provider First Name Ponce Referring Provider Last Name Tamela Referring Provider Speciality Orthopedic Surgery Referred Organization [facility] Referred Address [address] [place],[address],[place] General Notes Denice Dao 09:18:02 AM >PLEASE [...] Speciality Nurse Prac titioner Referred Organization [facility] Referred Address [address],[place],[address],[place] General Notes Marisela aVrghese 03:18:38 PM > 07/16 needing dictation please, [...] First Name Samuel Referring Provider Last Name [place] Referring Provider Speciality Orthopedic Surgery Ref[facility] Referred Address [address] [facility],[place],[address], General Notes Marisela Varghese 03:31:51 PM > [...] Status Risk Notes Problem Contusion of knee (26834049) Contusion of knee, left (S80.02XA) Active confirmed Problem Contusion of left knee (3247256180901 9109) Contusion of left knee, subsequent encounter (S80.02XD) Active confirmed Vital Signs Height 5'1 in 08/06/2024 Weight 182 lbs 08/06/2024 BMI 34.38 08/06/2024 Encounters Encounter Location Date Provider Diagnosis [facility] [address] [place] [place] [address] 07/02/2024 Nichole Villaiteland Effusion, left knee M25.462 and Contusion of knee, left S80.02XA [facility] [address] [facility] [place] [address] 07/16/2024 Nichole Villaiteland Contusion of left knee, subsequent encounter S80.02XD [facility] [address] [place] [place] [address] 08/06/2024 Samuel Harp Contusion of left knee, [...] MRI : Knee W/O Contrast Left - 98832 Insurance Providers Payer Name Payer Address Payer Phone Subscriber Number Group Number Insured Name Patient Relationship to Insured Coverage Start Date Coverage End Date Lizette- SI only [address] [place] [address] [phone] DOI 24 lt knee CONSTANTINO CARDOSO Self - patient is the insured 4 [facility] [address] [place] [address] [id number] CONSTANTINO CARDOSO Self - patient is the insured Medical (General) History Medical History History ICD Code Heart problems: High Blood Pressure
--- OUTSIDE RECORDS SUMMARY | 2025-03-21 11:03 | XMS_ITS | Encounter Summary ---
Author Organization [facility] Address [address] [place] [address] Care Team Providers Care Pole Shaver Helper Name Role Phone Judi Tapia MANAGEMENT ACCOUNTS MANAGER - PUBLIC INTERVIEWER Primary Care Provide r Encounter Details Date Type Department Care Team (Latest Contact Info) Description 02/26/2025 Prep for Procedure [facility] Gastroenterology [address] [facility] [address] [place] [address] Jose Miguel Lucero MD [address] [facility] [address] [place] [address] Screening for colon cancer Social History Tobacco Use Types Packs/Day Years Used Date Smoking Tobacco: Former Cigarettes Smokeless Tobacco: Never Alcohol Use Standard Drinks/Week Comments Yes 0 (1 standard drink = 0.6 oz pur e alcohol) Rare [facility] Utilities Answer Date Recorded In the past 12 months has [employer], gas, oil, or water [employer] threatened to shut off services in your [...] you homeless or living in a senior care (including now)? No 08/28/2024 Food Insecurity Answer [...] Description 04/01/2025 11:45 AM EDT Hospital Encounter [facility] [address] [place] [address] Jose Miguel Lucero MD [address] [facility] [address] [place] [address] 04/01/2025 11:45 AM EDT - 04/01/2025 12:00 PM EDT Surgery [facility] [address] [place] [address] Jose Miguel Lucero MD [address] [facility] [address] [place] [address] ESOPHAGOGASTRODUODENOSCOPY BIOPSY 04/19/2025 12:30 PM EDT Hospital Encounter [facility] [address] [place] [address] Jose Miguel Lucero MD [address] [facility] [address] [place] [address] 04/19/2025 12:30 PM EDT - 04/19/2025 1:00 PM EDT Surgery [facility] [address] [place] [address] Jose Miguel Lucero MD [address] [address] COLORECTAL CANCER SCREENING, NOT HIGH RISK Scheduled [...] colon documented in this encounter Care Teams Pole Shaver Helper Relationship Specialty Start Date End Date Judi Tapia, MANAGEMENT ACCOUNTS MANAGER - PUBLIC INTERVIEWER [address] [place] [address] PCP - General 08/29/24 documented as of this encounter
--- NOTE | 2025-03-21 11:05 | US_ITS ---
The [address] [address] Patient Name: CONSTANTINO CARDOSO MRN: [id number] date: 1970 Sex: F Assigned Patient Location: SLEEP Current Patient Location: SLEEP Accession/Order Number: [id number] Exam Date: 03/21/2025 12:05 Report Date: 03/21/2025 12:09 At the request of: STEPHANIE YOUSSEF Procedure: US renal bladder BILATERAL RENAL AND BLADDER ULTRASOUND CLINICAL HISTORY: Follow-up renal mass on CT. Left flank pain. COMPARISON: CT 03/14/2025 and ultrasound 09/14/2024 Estimation of renal size is approximately 10.4 cm on the right and 10.2 cm on the left. No shadowing calculi or hydronephrosis are identified. An irregular, complex parapelvic cystic area is again seen at the superior pole the right kidney measuring 2.2 x 1.4 x 1.8 cm in size. This is not significantly changed. There is no perinephric fluid. The urinary bladder is is not well distended with a volume of 40 mL. No obvious contour or intraluminal abnormalities are seen. Ureteral jets are visualized. US/US renal bladder IMPRESSION: NO OBSTRUCTIVE UROPATHY. SIMILAR COMPLEX PARAPELVIC CYST AT THE UPPER POLE OF THE RIGHT KIDNEY. Impression dictated by: Columba Domínguez M.D. 03/21/2025 12:09 PM Dictation Location: [place] [address] Electronically authenticated by: [id number] Y Date: 03/21/2025 12:09
== END 2025-03-21 11:00 | disposition home or self-care (01) ==
LOC: US 11:00
PROVIDERS: PCP Nurse Practitioner Family; Visit Provider Nurse Practitioner Family
DX: N28.89 Other specified disorders of kidney and ureter (principal)
CPT/HCPCS: 76770

== ENCOUNTER 2025-06-20 08:53 | Outpatient (OUT) | payer BC, SELFPAY ==
--- NOTE | 2025-06-20 08:55 | MM_ITS ---
Patient Name: CONSTANTINO CARDOSO MR#: [id number] : 1970 Exam Date: 06/20/2025 Ordering Doctor: STEPHANIE YOUSSEF CNP RADIOLOGY REPORT PROCEDURE: MM TOMOSYNTHESIS SCREENING BI COMPARISON: MM TOMOSYNTHESIS SCREENING BI, 03/13/2024. MG MAMM SCREEN 3D [place]IO CAD, 11/30/2022. MG MAMM SCREEN 3D [facility] CAD, 11/18/2021. MG MAMM SCREEN [facility]IO W CAD, 02/13/2018. INDICATIONS: screening for malignant neoplasm of breast Calculator Name NCI Breast Cancer Risk Assessment Tool 5 Year Breast Cancer Risk 1.00% Lifetime Breast Cancer Risk 7.00% Personal Breast Cancer No Personal Ovarian Cancer No Treatments None Family Cancers Aunt-maternal with breast cancer at age ~55; Cousin-maternal with ovarian cancer at age 17; Father with unknown cancer at age 87; Grandfather-maternal with colon cancer at age ~84. LOCATION: [facility] BREAST COMPOSITION: There are scattered areas of fibroglandular density. FINDINGS: RIGHT BREAST: No significant suspicious finding. LEFT BREAST: No significant suspicious finding. DIAGNOSTIC CATEGORY 1--NEGATIVE. RECOMMENDATIONS: ROUTINE MAMMOGRAM AND CLINICAL EVALUATION IN 12 MONTHS. Dictated by: Surendra Casey MD on 06/20/2025 at 11:04 Approved by: Surendra Casey MD on 06/20/2025 at 11:11
--- OUTSIDE RECORDS SUMMARY | 2025-06-20 08:55 | XMS_ITS | Encounter Summary ---
Author Organization [facility] Address [address] [place] [address] Care Team Providers Care Gas Station Cashier Name Role Phone Joel Alejandra DO Primary Care Provider [phone] Rafa Rangel Unavailable [phone] Source Comments In the event this information is protected by the Federal Confidentiality of Alcohol and Drug AbusePatient Records regulations: The Federal rules restrict any use of the information to criminally investigate or prosecute any alcohol or drug abuse patient.[facility] Encounter Details Date Type Department Care Team (Late st Contact Info) Description 06/16/2023 Patient Msg General Surgery [address] [phone] Provider, [facility] Upcoming appointments Social History Tobacco [...] is lower risk 8 05/06/2023 Data from: https://www.neighborhoodatlas.medicine.[facility].edu/. Last address used for calculation [address] [...] on filedocumented in this encounter Care Teams Gas Station Cashier Relationship Specialty Start Date End Date Joel Alejandra DO PCP - General Family Medicine 04/26/18 Rafa Rangel [address] [place] [address] Referring General Surgery 04/26/18 documented as of this encounter
--- OUTSIDE RECORDS SUMMARY | 2025-06-20 08:55 | XMS_ITS | Encounter Summary ---
Author Organization [facility] Address [address] [place] [address] Care Team Providers Care Service Sprinkler Helper Name Role Phone Joel Alejandra Primary Care Provider [phone] Rafa Rangel Unavailable [phone] Source Comments In the event this information is protected by the Federal Confidentiality of Alcohol and Drug AbusePatient Records regulations: The Federal rules restrict any use of the information to criminally investigate or prosecute any alcohol or drug abuse patient.[facility] Encounter Details Date Type Department Care Team (Late st Contact Info) Description 07/22/2023 Patient Msg General Surgery [address] [phone] Provider, Ccf Nutrition Summary Social History Tobacco [...] is lower risk 8 05/06/2023 Data from: https://www.neighborhoodatlas.medicine.[facility].edu/. Last address used for calculation [address] [...] on filedocumented in this encounter Care Teams Service Sprinkler Helper Relationship Specialty Start Date End Date Joel Alejandra DO PCP - General Family Medicine 04/26/18 Rafa Rangel [address] [phone] Referring General Surgery 04/26/18 documented as of this encounter
--- OUTSIDE RECORDS SUMMARY | 2025-06-20 08:55 | XMS_ITS | Encounter Summary ---
Author Organization [facility] Address [address] [place] [address] Care Team Providers Care Registered Nurse Practitioner Name Role Phone Joel Alejandra DO Primary Care Provider [phone] Rafa Rangel Unavailable [phone] Source Comments In the event this information is protected by the Federal Confidentiality of Alcohol and Drug AbusePatient Records regulations: The Federal rules restrict any use of the information to criminally investigate or prosecute any alcohol or drug abuse patient.[facility] Encounter Details Date Type Department Care Team (Late st Contact Info) Description 06/28/2023 Patient Msg General Surgery [address] [phone] Evelyn Berger, RN EGD Social History Tobacco [...] is lower risk 8 05/06/2023 Data from: https://www.neighborhoodatlas.medicine.[facility].edu/. Last address used for calculation [address] [...] on filedocumented in this encounter Care Teams Registered Nurse Practitioner Relationship Specialty Start Date End Date Joel Alejandra DO PCP - General Family Medicine 04/26/18 Rafa Rangel [address] [place] [phone] Referring General Surgery 04/26/18 documented as of this encounter
--- OUTSIDE RECORDS SUMMARY | 2025-06-20 08:55 | XMS_ITS | Encounter Summary ---
Author Organization [facility] Address [address] [place] [address] Care Team Providers Care Glaze Mixer Name Role Phone Joel Alejandra DO Primary Care Provider [phone] Rafa Rangelangelicanoemi Unavailable [phone] Source Comments In the event this information is protected by the Federal Confidentiality of Alcohol and Drug AbusePatient Records regulations: The Federal rules restrict any use of the information to criminally investigate or prosecute any alcohol or drug abuse patient.[facility] Encounter Details Date Type Department Care Team (Late st Contact Info) Description 05/27/2023 Patient Msg General Surgery [address] [phone] Evelyn Berger RN EGD/POP PROCEDURE WITH DR [...] is lower risk 8 05/06/2023 Data from: https://www.neighborhoodatlas.medicine.[facility].edu/. Last address used for calculation [address] [...] on filedocumented in this encounter Care Teams Glaze Mixer Relationship Specialty Start Date End Date Joel Alejandra DO PCP - General Family Medicine 04/26/18 Rafa Rangel [address] [phone] Referring General Surgery 04/26/18 documented as of this encounter
--- OUTSIDE RECORDS SUMMARY | 2025-06-20 08:55 | XMS_ITS | Clinical Summary ---
Author Organization [facility] Address [address], [address] [place] [address] Care Team Providers Care Cell Biologist Name Role Phone Judi Tapia PRIMARY CARE PROVIDER - [employer] BOATMAN Primary Care Provide r Allergies Active Allergy [...] 6 hours as needed for Nausea Active bisacodyl 5 MG EC tablet Take as directed for bowel prep/colonoscopy 4 tablet 5 Active dicyclomine (BENTYL) 10 MG capsule Take 1 capsule by mouth 4 times daily as needed (pain lower abdomen) 45 capsule 2 5 Active aspirin 81 MG EC tablet Take 1 tablet by mouth every morning 5 Active polyethylene glycol (GLYCOLAX) 17 GM/SCOOP powder TAKE PER BOWEL PREP INSTRUCTIONS 238 g 5 Active Active Problems Problem Noted Date Diagnosed Date Gastroesophageal reflux disease 03/14/2025 Dysphagia, unspecified 02/26/2025 Generalized abdominal pain 08/30/2024 Primary hypertension 08/29/2024 Gastroesophageal reflux dise ase with esophagitis without hemorrhage 08/29/2024 Major depressive disorder 08/29/2024 Hypokalemia 08/29/2024 Ileus 08/28/2024 Other dysphagia 08/15/2024 Resolved Problems Problem Noted Date Diagnosed Date Resolved Date Screening for colon cancer 02/26/2025 0 03/28/2025 Encounters Date Type Department Care Team Description 03/25/2025 Refill [facility] Gastroenterology [address] [place] [address] Jose Miguel Lucero MD Medication Refill 03/18/2025 8:45 AM EDT - 03/22/2025 11:59 PM EDT Hospital Encounter [facility] Pre-Admit Testing [address] [place] [address] Discharge Disposition: Home or Self Care from Last 3 Months Social History Tobacco Use Types Packs/Day Years Used Date Smoking Tobacco: Former Cigarettes Smokeless Tobacco: Never Tobacco Cessation:Counseling Given: Not Answered Alcohol Use Standard Drinks/Week Comments Yes 0 (1 standard drink = 0.6 oz pur e alcohol) Rare [facility] Utilities Answer Date Recorded In the past 12 months has [employer], gas, oil, or water [employer] threatened to shut off services in your [...] any time in the past 12 [facility], were you homeless or living in [...] 03/18/2025 1:05 PM EDT Plan of Treatment Health Maintenance [...] Vaccine (1 of 1 - PCV) 2020 Flu vaccine (#1) 04/05/2025 06/09/2022 COVID-19 Vaccine ( season) 2025 06/15/2022, 03/18/2022, 11/06/2021, Additional history exists Shingles vaccine Completed 02/19/2025, 04/27/2024 Hepatitis A [...] patient's age to complete this topic Insurance [place] Advance Directives * Full Code (Latest Code Status on File) Date Activated Date Inactivated Comments 08/28/2024 3:16 PM 08/30/2024 6:26 PM Care Teams Cell Biologist Relationship Specialty Start Date End Date Judi Tapia, ANDREEA - [employer]ATMAN [address] [place] [address] PCP - General 08/29/24
--- OUTSIDE RECORDS SUMMARY | 2025-06-20 08:55 | XMS_ITS | Clinical Summary ---
Author Organization [facility] Address [address] [place] [address] Phone Care Team Providers Care Stock Receiver Name Role Phone Unavailable Primary Care Provider [...] 2020 Zoster Vaccines (1 of 2) 2020 Influenza Vaccine (#1) 2025 COVID-19 Vaccine ( - 2024-2 6 season) 2025 HIB Vaccines Aged Out No longer [...]
--- OUTSIDE RECORDS SUMMARY | 2025-06-20 08:55 | XMS_ITS | Clinical Summary ---
Author Organization [employer] [facility] Address [id number] [facility] [place] [address] Care Team Providers Care Vp Publisher Development Name Role Phone Judi Tapia NOVELTY TWISTER TENDER-PINSETTER MECHANIC AUTOMATIC Primary Care Provider Social History Tobacco [...] Vaccine (1 of 2) 2020 COVID-19 Vaccine ( - 2024-2 6 season) 2025 06/15/2022, 03/18/2022, 11/06/2021, Additional history exists Influenza Vaccine 05/06/2025 06/09/2022 Medical Devices Not on file Insurance [employer] Care Teams Vp Publisher Development Relationship Specialty Start Date End Date Judi Tapia, NOVELTY TWISTER TENDER-PINSETTER MECHANIC [employer] [address] [place] [phone] PCP - General Family Medicine 12/01/23
--- OUTSIDE RECORDS SUMMARY | 2025-06-20 08:55 | XMS_ITS | Clinical Summary ---
Author Organization [facility] Address [address] [place] [address] Care Team Providers Care Dental Technician Instructor Name Role Phone Unallocated, Noms Provider Primary Care Provi christine Judi Tapia MD Unavailable [phone] Nikki Ayoub Unavailable Allergies Active Allergy [...] before bedtime. 60 tablet 3 01/07/2025 Active Immunizations Immunization Administration Dates Next Due Influenza, [...] 03/13/2030 03/13/2020, 05/17/2019 Colorectal Cancer Screening 03/13/2030 Insurance BCBS Care Teams Dental Technician Instructor Relationship Specialty Start Date End Date Unallocated, Noms Provider, [address] [place] [id number] PCP - General 04/25/23 Judi Tapia MD [address] [place] [address] [phone] Referring Physician Family Medicine 04/25/23 Nikki Ayoub PA [address] [place] [phone] Physician Model Set Artist Neurology 11/26/24
--- OUTSIDE RECORDS SUMMARY | 2025-06-20 08:55 | XMS_ITS | Encounter Summary ---
Author Organization [employer] Address [id number] [address] [place] [address] Care Team Providers Care Level Vial Setter Name Role Phone Judi Tapia SUPERVISOR ELECTRIC-SANDSTONE SPLITTER Primary Care Provider Reason for Referral * Diagnostic Imaging (Routine) - Closed Specialty Diagnoses / Procedures Referred By Eileen mueller Referred To Contact Radiology Diagnoses Pain Procedures CT abdomen and pelvis without contrast [facility] [employer] [facility] [place] [address] Phone: tel: fax: Referral ID Status Reason Start Date Expiration Date Visits Re quested Visits Authorized [id number] Closed 12/01/2023 11/30/2024 1 1 Encounter Details Date Type Department Care Team (Late st Contact Info) Description 12/01/2023 Orders Only [facility] [employer] [facility] [place] [address] Transcribe, Orders Support User Pain [...] ORDER CASSANDRA Final Result Performing Organization Address [facility] Co de Phone Number MANUALLY TRANSCRIBED RESULTS * Fluoroscopy esophagus (11/28/2023 8:20 AM EDT) us Scanning Provider External IMG FLUOROSCOPY ORDER CASSANDRA Final Result Performing Organization Address [facility] Co de Phone Number MANUALLY TRANSCRIBED RESULTS * Multiple labs (11/28/2023) us Not In System Ref Prov CA IMAGING Edited Re sult - Final Performing Organization Address [facility] Co de Phone Number [...] pain documented in this encounter Care Teams Level Vial Setter Relationship Specialty Start Date End Date Judi Tapia APRN-SANDSTONE SPLITTER [address] [place] [phone] PCP - General Family Medicine 12/01/23 documented as of this encounter
--- OUTSIDE RECORDS SUMMARY | 2025-06-20 08:55 | XMS_ITS | Encounter Summary ---
Author Organization [facility] Address [address] [place] [address] Care Team Providers Care Medical Manager Name Role Phone Unallocated, Noms Provider Primary Care Provi christine Judi Tapia MD Unavailable [phone] Nikki Ayoub Unavailable Encounter Details Date Type Department Care Team (Late st Contact Info) Description 03/26/2023 Abstract [facility] [address] [facility] [address] [place] [phone] Rafa Rangel DO [address] [facility] [address] [place] [address] Social History Tobacco Use Types [...] on filedocumented in this encounter Care Teams Medical Manager Relationship Specialty Start Date End Date Unallocated, Noms MD Edin [address] [place] [phone] PCP - General 04/25/23 uJdi Tapia MD [address] [place] [address] Referring Physician Family Medicine 04/25/23 Nikki Ayoub PA [address] [place] [address] [phone] Physician Technical Solutions Director Neurology 11/26/24 documented as of this encounter
--- OUTSIDE RECORDS SUMMARY | 2025-06-20 08:55 | XMS_ITS | Encounter Summary ---
Author Organization [facility] Address [address] [place] [address] Phone Care Team Providers Care Hospital Coordinator Name Role Phone Unavailable Primary Care Provider Unavailabl e Encounter Details Date Type Department Care Team (Late st Contact Info) Description 03/26/2023 Orders Only [facility] [address] [place] [address] Conversion, Onbase Social History Tobacco Use Types [...]
--- OUTSIDE RECORDS SUMMARY | 2025-06-20 08:55 | XMS_ITS | Clinical Summary ---
Author Organization Address [address] [place] [address] Care Team Providers Care Crucible Packer Name Role Phone Ny Joel Onel Primary Care Provider [phone] Rafa Rangel Unavailable [phone] Allergies Active Allergy Reactions Criticality Noted Date [...] Used Date Smoking Tobacco: Former Cigarettes 1 7 - 2011 Smokeless Tobacco: Never Tobacco Cessation:Counseling [...] is lower risk 8 05/06/2023 Data from: https://www.neighborhoodatlas.[facility]/. Last address used for calculation [address] [...] Vaccine (1 of 2) 2020 Covid-19 Vaccine ( - 2024-2 6 season) 2025 06/15/2022, 03/18/2022, 11/06/2021, Additional history exists Influenza Vaccine (#1) 2025 06/09/2022 Insurance BLUE ACCESS PPO Care Teams Crucible Packer Relationship Specialty Start Date End Date Joel Alejandra DO PCP - General Family Medicine 04/26/18 Rafa Rangel [address] [place] [phone] Referring General Surgery 04/26/18
--- OUTSIDE RECORDS SUMMARY | 2025-06-20 08:55 | XMS_ITS | Encounter Summary ---
Author Organization [facility] Address [facility] [place] [address] Care Team Providers Care Maintenance Construction Helper Name Role Phone Joel Alejandra DO Primary Care Provider [phone] Rafa Rangel Unavailable [phone] Source Comments In the event this information is protected by the Federal Confidentiality of Alcohol and Drug AbusePatient Records regulations: The Federal rules restrict any use of the information to criminally investigate or prosecute any alcohol or drug abuse patient.[facility] Encounter Details Date Type Department Care Team (Late st Contact Info) Description 03/05/2025 [place] [address] Provider, Ccf Sign up to manage your digestive symptoms in between visits, covered by insurance Social History Tobacco Use Types Packs/Day Years Used Date Smoking Tobacco: Former Cigarettes 1 2011 Smokeless Tobacco: Never Comments: still smoke [...] lower risk 8 05/06/2023 Data from: https://www.neighborhoodatlas.medicine.[facility]/. Last address used for calculation [address] [...] on filedocumented in this encounter Care Teams Maintenance Construction Helper Relationship Specialty Start Date End Date Joel Alejandra DO PCP - General Family Medicine 04/26/18 Rafa Rangel [address] [place] [phone] Referring General Surgery 04/26/18 documented as of this encounter
--- OUTSIDE RECORDS SUMMARY | 2025-06-20 08:59 | XMS_ITS | CCD ---
Author Organization [facility] Care Team Providers Care Paint Laboratory Technician Name Role Phone LEONA MORTENSEN Admitting Unavailable LEONA MORTENSEN Attending Unavailable KEVIN HERRERA Primary Care Unavailable KEVIN HERRERA Referring Unavailable AL Procedure Practitioner Unavailab ORESTES Cruz Surgeon Unavailable JUDI YOUSSEF Primary Care Physician [phone] DONI Youssef Primary Care Provider DO Conner Griffith Emergency Provider Jennie Ayon Unavailable MD Jennie Ayon Attending Provider [phone] JOHNATHAN RUDOLPH Attending Unavailibis RUDOLPH, DR [...] KATHRIN VANCE Attending Unavailable ISAAK Larson, DR BORWN Consulting Unavailable KATHRIN VANCE Consulting Unavailable PA, [...] JUDI YOUSSEF Consulting Unavailable LINDA Youssef-Paula Judi Franco Primary Care Provider DO Conner Griffith Emergency Provider DO Bijan Pete [place] Emergency [facility] Primary Care Provider Rafa Rangel Unavailable Renny Omalley Unavailable MARQUES BRADLEY Referring Unavailable PAV[facility], [facility] Primary Care Unavailable PAVLOCK, [facility] Primary Care Unavailable KROHMARQUES Referring Unavailable KROH, MARQUES Patel Attending Unavailable IMER CHERRY Referring Unavailable PAVLOCK, [facility] Primary Care Unavailable PAVLOCK, [facility] Primary Care Unavailable KROH, MARQUES Patel Referring Unavailable OLIVER TORRES Attending Unavailable KROHMARQUES Referring Unavailable PAVLOCK, [facility] Primary Care Unavailable AMERICO MONTALVO Attending Unavailable KROHMARQUES Referring Unavailable PAVLOCK, [facility] Primary Care Unavailable SLYSLY Attending Unavailable KROHMARQUES Referring Unavailable PAVLOCK, [facility] Primary Care Unavailable ARCELIA SHAW Attending Unavailable Yolanda Lou Attending Unavailable Yolanda Lou Admitting Unavailable DONI Youssef Judi Franco Primary Care Provider MD Jennie Ayon Attending Provider [phone] Unallocated , [place] Provider Primary Care Provi christine Judi Youssef MD Unavailable No, Pcp Primary Care Provider Unavailibis Youssef CASING TRIMMER - Judi MENDOZA Primary Care Provide r Eliezer Lorenzo Admitting Unavailable Eliezer Lorenzo Attending Unavailable Dasha Yolanda X Attending Unavailable Randy Rush Consulting Unavailable MD Rush Padilla Consulting Unavailable [place], Rush Consulting Unavailable [place], Rush Consulting Unavailable [place], Rush Consulting Unavailable [place], Ruhs Consulting Unavailable [place], Rush Consulting Unavailable [place], Rush Consulting Unavailable Randy, Rush Consulting Unavailable Eliezer Lorenzo Admitting Unavailable Eliezer Lorenzo Attending Unavailable [place], Rush Consulting Unavailable Randy, MD Baker Consulting Unavailable [place], Rush Consulting Unavailable [place], Rush Consulting Unavailable [place], Rush Consulting Unavailable [place], Rush Consulting Unavailable [place], Rush Consulting Unavailable [place], Rush Consulting Unavailable [place], Rush Consulting Unavailable Nikki Zhang Unavailable Nicanor Perez MD Attending Provider NIKKI AYOUB Attending Unavailable NIKKI AYOUB Attending Unavailable COSME, AHMAD F Attending Unavailable COSME, AHMAD F Referring Unavailable COSME, AHMAD F Attending Unavailable Prosper Bergman Attending Unavailable VINH, OBDULIO Attending Unavailable JUDI YOUSSEF Primary Care Unavailable MIGUEL WILD Consulting Unavailable AVASTHI, OBDULIO Admitting Unavailable AVASTHI, OBDULIO Consulting Unavailable EDISON KINCAID Attending Unavailable EDISON KINCAID Attending Unavailable EDISON KINCAID Attending Unavailable EDISON KINCAID Attending Unavailable EDISON KINCAID Attending Unavailable Kailey Mosley APRN Emergency Provider Regina [employer]-CJudi Primary Care Provider JUDI YOUSSEF Primary Care Unavailable JANUSZ, AIJAZ Admitting Unavailable JANUSZ, AIJAZ Attending Unavailable NO, PCP Primary Care Unavailable Rambo Purcell Admitting Unavaila ble Rambo Purcell Attending Unavaila ble Rambo Purcell Referring Unavaila Kailey Tovar Admitting Unavailable Kailey Mosley Attending Unavailable Judi Youssef Primary Care Unavailable Chris Nicanor Admitting Unavailable Nicanor Perez Attending Unavailable Asaad, Imad Admitting Unavailable Asaad, Imad Attending Unavailable Judi Youssef Primary Care Unavailable Rambo Purcell Attending Unavaila ble Sagemini, Rambo Dayal Referring Unavaila ble Sagemini, Ricks Talal Admitting Unavaila Prosper Lopez Attending Unavailable Rambo Purcell Attending Unavaila ble Sarmini, Rambo Dietrich Attending Flavio Medina Attending JUDI Claros Referring Unavailable Flavio JUAREZ Attending Unavailable Flavio JUAREZ Admitting Unavailable Flavio JUAREZ Attending Unavailable Flavio JUAREZ Referring Unavailable Allergies Allergy Classification Reported Allergen(s) Allergy Type Date of Onset Reaction(s) Facility (11 sources) cyclobenzaprine; Translations: [CYCLOBENZAPRINE] Drug Allergy 04-28-20 18 Swelling of Lip/Tongue/Thr oat, Swelling of Lip/Tongue/Thr oat, throat swelling [facility] (12 sources) Penicillins; Translations: [PENICILLINS] Drug allergy (disorder) 09-02-20 15 Rash [facility] (20 sources) cyclobenzaprine; Translations: [cyclobenzaprine] Drug Allergy 04-28-20 18 Pharyngeal swelling (finding), Swelling, Other (See Comments) [facility] (20 sources) Penicillin; Translations: [penicillin] Drug Allergy 04-28-20 18 Swelling (morphologic abnormality), Swelling [facility] (15 sources) penicillAMINE Drug Allergy 04-26-20 24 [facility] (2 sources) cyclobenzaprine Drug Allergy 03-23-20 16 [facility] (1 source) traMADol Drug Allergy [facility] (1 source) traMADol Drug Allergy [facility] (11 sources) penicillAMINE Drug Allergy 05-01-20 24 Rash [facility] (11 sources) Penicillins Drug Allergy 04-28-20 18 Rash, Swelling [facility] (3 sources) Penicillins Propensity to adverse reactions to drug 04-28-20 18 Other (See Comments), Rash, Swelling [facility] (1 source) cyclobenzaprine Drug Allergy 03-12-20 25 [facility] (1 source) penicillAMINE Drug Allergy 03-12-20 [facility] (1 source) Penicillins Drug allergy (disorder) 03-12-20 25 [facility] Medications Current Medications Medication Drug Class(es) Dates Sig (Normalized) Sig (Original) acarbose 25 mg oral tablet (15 sources) alpha-Glucosidase Inhibitor Start: 07-13-2024 End: 07-13-2025 take 1 tablet by mouth once daily acarbose 25 mg oral tablet 25 mg = 1 tab(s), Oral, Daily, Refills(s) 0, Blood glucose Start Date: 10/19/24 Status: Ordered Repeat number: 1 Start: 07-13-2024 End: 07-13-2025 take 1 tablet by mouth twice daily acarbose (PRECOSE) 25 MG tablet Take 1 tablet by mouth 2 times daily 07/16/2024 Active Acetaminophen (17 sources) Start: 08-28-2024 acetaminophen (TYLENOL) tablet 650 [...] aspirin 81 mg delayed release oral tablet (11 sources) Platelet Aggregation Inhibitor, Nonsteroidal Anti-inflammatory Drug Start: 10-20-2024 take 1 tablet by mouth once daily aspirin 81 mg Oral EC Tab 81 mg = 1 tab(s), Oral, Daily, # 30 tab(s), Refills(s) 0, Pharmacy: [facility]/pharmacy #[id number], 170.2, cm, 10/19/24 17:25:00 EST, Height/Length Dosing, 90.5, kg, 10/19/24 17:25:00 EST, Weight Dosing Start Date: 10/20/24 Status: Ordered Quantity: 30.0 Unit: tab(s) Repeat number: 1 azithromycin 250 mg oral tablet (3 sources) Macrolide Antimicrobial Start: 02-16-2024 azithromycin 250 mg Tab 250 mg, Oral, As Directed, # 6 tab(s), Refills(s) 0 Start Date: 02/16/24 Status: Ordered bisacodyl 5 mg delayed release oral tablet (1 source) Stimulant Laxative Start: 02-26-2025 bisacodyl 5 MG EC tablet Take as directed for bowel prep/colonoscopy 4 tablet 02/26/2025 Active cholecalciferol 0.05 mg oral capsule (18 sources) Vitamin D Start: 05-01-2024 take 1 capsule by mouth once daily vitamin D (VITAMIN D3) 50 MCG (2000 UT) CAPS capsule Take 1 capsule by mouth daily 05/01/2024 Active colestipol hydrochloride 1000 mg oral tablet (1 source) Bile Acid Sequestrant Start: 06-05-2025 take 2 tablets by mouth once daily Colestid 1 g Tab 2 gm = 2 tab(s), Oral, Daily, # 60 tab(s), Refills(s) 3, Pharmacy: [facility]/pharmacy #[id number], 170, cm, 06/05/25 10:14:00 EDT, Height/Length Dosing, 89.9, kg, 06/05/25 10:14:00 EDT, Weight Dosing Start Date: 06/05/25 Status: Ordered Quantity: 60.0 Unit: tab(s) Repeat number: 4 dicyclomine hydrochloride 10 mg oral capsule (20 sources) Anticholinergic Start: 03-27-2025 End: 04-10-2025 take 1 capsule by mouth four times daily Bentyl 10 mg Cap 10 mg = 1 cap(s), Oral, QID, X 14 day(s), # 56 cap(s), Refills(s) 0, Pharmacy: [facility]/pharmacy #[id number], 170, cm, 03/27/25 10:23:00 EDT, Height/Length Dosing, 86.9, kg, 03/27/25 10:23:00 EDT, Weight Dosing Start Date: 03/27/25 Stop Date: 04/10/25 Status: Ordered Quantity: 56.0 Unit: cap(s) Repeat number: 1 Indications: Pearce's esophagus without dysplasia; Dysphagia, unspecified; Foreign body sensation, throat; Lower abdominal pain, unspecified; Start: 02-26-2025 take 1 capsule by mo uth four times daily as needed for pain dicyclomine (BENTYL) 10 MG capsule Take 1 capsule by mouth 4 times daily as needed (pain lower abdomen) 45 capsule 2 02/26/2025 Active Start: 02-15-2023 End: 05-01-2024 take 1 capsule [...] day(s), # 120 cap(s), Refills(s) 11, Pharmacy: [facility]/pharmacy #[id number], 170, cm, 05/05/21 14:15:00 EDT, Height/Length Dosing, 83.1, kg, 05/05/21 14:15:00 EDT, Weight Dosing Start Date: 05/05/21 Stop Date: 04/30/22 Status: Ordered Start: 09-20-2020 take 2 capsules by m outh four times daily Bentyl 10 mg Cap 20 mg = 2 cap(s), Oral, QID, # 20 cap(s), Refills(s) 0, Pharmacy: [facility]/pharmacy #[id number], 170, cm, 09/20/20 16:03:00 [...] by mouth before meals and at bedtime. esomeprazole 40 mg delayed release oral capsule (1 source) Proton Pump Inhibitor Start: 5 End: 6 take 1 capsule by mouth twice daily Nexium 40 mg Cap-EC 40 mg, Oral, BID, Pharmacy may substitue PPI covered by insurance company, X 90 day(s), # 180 cap(s), Refills(s) 3, [id number] 170, cm, 06/05/25 10:14:00 EDT, Height/Length Dosing, 89.9, kg, 06/05/25 10:14:00 EDT, Weight Dosing Start Date: 06/05/25 Stop Date: 05/31/26 Status: Ordered Quantity: 180.0 Unit: cap(s) Repeat number: 4 estradiol 0.1 mg/ml vaginal cream (8 sources) Estrogen Start: 4 Estrace 0.1 mg/g Cream 1 gm, Vaginal, As Directed, 42.5 gm, Refill(s) 3, Apply pea-sized amount around urethra every night x 3 weeks, then 2 times weekly for maintenance, [facility]/pharmacy #[id number], 170, cm, 02/16/24 9:10:00 EDT, Height/Length Dosing, 81.7, kg, 02/16/24 9:10:00 EDT, Weight Dosing Start Date: 02/16/24 Status: Ordered Quantity: 42.5 Unit: g Repeat number: 4 Indications: Urinary tract infection, site not specified; famotidine 40 mg oral tablet (20 sources) Histamine-2 Receptor Antagonist Start: 5 take 1 tablet by mouth once daily at bedtime famotidine 40 mg Tab 40 mg = 1 tab(s), Oral, Once a day (at bedtime), # 90 tab(s), Refills(s) 3, [id number] 170, cm, 06/05/25 10:14:00 EDT, Height/Length Dosing, 89.9, kg, 06/05/25 10:14:00 EDT, Weight Dosing Start Date: 06/05/25 Status: Ordered Quantity: 90.0 Unit: tab(s) Repeat number: 4 Start: 01-28-2022 End: 04-28-2022 take 1 tablet by mouth once daily at bedtime Pepcid 20 mg Tab 20 mg = 1 tab(s), Oral, Once a day (at bedtime), X 90 day(s), # 90 tab(s), Refills(s) 0, Pharmacy: [facility]/pharmacy #[id number], 170, cm, 01/28/22 13:40:00 [...] 12:01am hyoscyamine sulfate 0.125 mg oral tablet (18 sources) Start: 05-01-2024 take 1 tablet by mouth every six hours as needed hyoscyamine (Anaspaz,Levsin) 0.125 MG tablet Take 1 tablet by mouth every 6 (six) hours if needed 05/01/2024 Active Start: 05-01-2024 take 1 tablet by ana th once daily take 1 tablet by ana th every four hours as needed hyoscyamine (ANASPAZ;LEVSIN) 0.125 MG tablet Take 1 tablet by mouth every 4 hours as needed for Cramping Active Ibgard 90 mg oral delayed release capsule (2 sources) Start: 06-05-2025 take 2 capsules by mouth twice daily Ibgard 90 mg oral delayed release capsule 180 mg = 2 cap(s), Oral, BID, # 48 cap(s), Refills(s) 3, Pharmacy: [facility]/pharmacy #[id number], 170, cm, 06/05/25 10:14:00 EDT, Height/Length Dosing, 89.9, kg, 06/05/25 10:14:00 EDT, Weight Dosing Start Date: 06/05/25 Status: Ordered Quantity: 48.0 Unit: cap(s) Repeat number: 4 Start: 03-27-2025 take 2 capsules by m outh twice daily Ibgard 90 mg oral delayed release capsule 180 mg = 2 cap(s), Oral, BID, # 60 cap(s), Refills(s) 3, Pharmacy: [facility]/pharmacy #[id number], 170, cm, 03/27/25 10:23:00 EDT, Height/Length Dosing, 86.9, kg, 03/27/25 10:23:00 EDT, Weight Dosing Start Date: 03/27/25 Status: Ordered Quantity: 60.0 Unit: cap(s) Repeat number: 4 Indications: Pearce's esophagus without dysplasia; Dysphagia, unspecified; Foreign body sensation, throat; Lower abdominal pain, unspecified; 1 ml ketorolac tromethamine 30 mg/ml cartridge [...] Start: 08-28-2024 levETIRAcetam 1000 mg oral tablet (14 sources) Start: 01-07-2025 take 1 tablet by [...] BID, # 60 tab(s), Refills(s) 0, Pharmacy: [facility]/pharmacy #[id number], 170.2, cm, 10/19/24 17:25:00 [...] LIDOCAINE VISC OUS 2 % solution lisinopril 40 mg oral tablet (20 sources) Angiotensin Converting Enzyme Inhibitor Start: 03-27-2025 take 1 tablet by mouth once daily lisinopril 40 mg Tab 40 mg = 1 tab(s), Oral, Daily, Refills(s) 0, High blood pressure Start Date: 03/27/25 Status: Ordered Repeat number: 1 Start: 03-19-2024 End: 03-19-2025 take 1 tablet by mouth once daily Start: 03-19-2024 End: 03-19-2025 take 1 tablet by mouth once daily lisinopril 20 MG tablet Take 20 mg by mouth Daily 03/19/2024 03/19/2025 Active 50 ml magnesium sulfate 40 mg/ml injection (1 source) Start: 08-28-2024 24 hr metoprolol succinate 50 mg extended release oral tablet (20 sources) beta-Adrenergic Esrena Start: 08-28-2024 take 50 mg by mouth once daily 50 mg, Oral, DAILY, First dose on Tue08/28/24 at 1545, Until Discontinued, Do not crush or chew. Start: 05-01-2024 End: 10-20-2024 take 1 tablet by mouth once daily metoprolol succinate 50 mg ER Tab 50 mg = 1 tab(s), Oral, Daily, Refills(s) 0, High blood pressure Start Date: 10/19/24 Status: Ordered Repeat number: 1 Start: 02-15-2024 End: 02-14-2025 take 1 tablet by mouth every twenty-four hours in the morning metoprolol succinate XL (Toprol-XL) 50 MG 24 hr tablet Take 50 mg by mouth in the morning. 02/15/2024 02/14/2025 Active Multi Vitamins oral tablet (5 sources) Start: 10-20-2024 Multi Vitamins oral tablet 1 tab(s), Oral, Daily, 30 tab(s), Refill(s) 0, [facility]/pharmacy #[id number], 170.2, cm, 10/19/24 17:25:00 EST, Height/Length Dosing, 90.5, kg, 10/19/24 17:25:00 EST, Weight Dosing Start Date: 10/20/24 Status: Ordered Quantity: 30.0 Unit: tab(s) Repeat number: 1 Start: 10-20-2024 Multi Vitamins oral tablet 1 tab(s), Oral, Daily, 30 tab(s), Refill(s) 0, [facility]/pharmacy #[id number], 170.2, cm, 10/19/24 17:25:00 EST, Height/Length Dosing, 90.5, kg, 10/19/24 17:25:00 EST, Weight Dosing Start Date: 10/20/24 Status: Ordered naproxen 500 mg oral tablet (18 sources) Nonsteroidal Anti-inflammatory Drug Start: 02-19-2023 take 1 tablet by mouth twice daily Start: 06-21-2019 End: 02-15-2023 take 1 capsule by mouth twice daily as needed for pain Naproxen Sodium (Aleve) 220 mg Capsule Discontinued 220 MG PO Twice daily as needed for Pain June 21, 2019 12:00am February 15, 2023 9:46am nitrofurantoin, macrocrystals 25 mg / nitrofurantoin, monohydrate 75 mg oral capsule (9 sources) Nitrofuran Antibacterial Start: 03-12-2025 take 1 capsule by mouth twice daily at mealtime Start: 06-21-2019 End: 02-15-2023 take 1 capsule by mouth twice daily at mealtime Nitrofurantoin Monohyd/M-Cryst (Macrobid) 100 mg capsule Discontinued 100 MG PO Twice daily 14 June 21, 2019 12:00am February 15, 2023 9:46am must administer with a meal/food omeprazole 20 mg Cap-DR (1 source) Start: 01-11-2022 take 1 capsule by mouth once daily omeprazole 20 mg Cap-DR 20 mg = 1 cap(s), Oral, Daily, # 90 cap(s), Refills(s) 3, Pharmacy: [facility]/pharmacy #[id number], 170, cm, 01/11/22 9:17:00 EDT, Height/Length Dosing, 83, kg, 01/11/22 9:17:00 EDT, Weight Dosing Start Date: 01/11/22 Status: Ordered omeprazole 40 mg Cap-DR (1 source) Start: 01-28-2022 End: 04-28-2022 take 1 capsule by mouth once daily omeprazole 40 mg Cap-DR 40 mg = 1 cap(s), Oral, Daily, X 90 day(s), # 90 cap(s), Refills(s) 0, Pharmacy: [facility]/pharmacy #[id number], 170, cm, 01/28/22 13:40:00 EDT, Height/Length Dosing, 84.5, kg, 01/28/22 13:40:00 EDT, Weight Dosing Start Date: 01/28/22 Stop Date: 04/28/22 Status: Ordered ondansetron 4 mg disintegrating oral tablet (20 sources) Serotonin-3 Receptor Antagonist Start: 03-27-2025 ondansetron 4 mg Dis Tab Refills(s) 0, Nausea/Vomiting Start Date: 03/27/25 Status: Ordered Repeat number: 1 Start: 02-16-2025 End: 02-19-2025 take 1 tablet by mouth every six hours ondansetron 4 mg Dis Tab 4 mg = 1 tab(s), Oral, q6hr, X 3 day(s), # 10 tab(s), Refills(s) 0, Pharmacy: [facility]/pharmacy #[id number], 170.2, cm, 02/16/25 18:59:00 EDT, [...] tablet (20 sources) Proton Pump Inhibitor Start: 03-27-[address] Tab 40 mg = 1 tab(s), Oral, Refills(s) 0, Control of stomach acid Start Date: 03/27/25 Status: Ordered Repeat number: 1 Start: 03-12-2025 take 1 tablet by ana th once daily Start: 08-31-2024 take 40 mg by mouth [...] April 13, 2018 11:34am polyethylene glycol 3350 86971 mg powder for oral solution (11 sources) Osmotic Laxative Start: 02-26-2025 polyethylene glycol (MIRALAX) 17 GM/SCOOP powder Take per bowel prep instructions 238 g 02/26/2025 Active Start: 08-30-2024 End: 09-19-2024 polyethylene glycol (GLYCOLA X) 17 GM/SCOOP powder Take 17 g by mouth daily for 20 days 116 g 2 08/30/2024 09/19/2024 Active Start: 08-28-2024 17 g, Oral, MARNIE WOOD, First dose on Tue08/29/24 at 1100, Until Discontinued, Stir and dissolve one packet of powder (17 g) in any 4 to 8 ounces of beverage (cold, hot or room temperature) then drink Start: 02-15-2023 End: 05-11-2024 Polyethylene Glycol 3350 (Mi ralax) 17 gram Powder In Packet Discontinued 17 GM PO Daily February 15, 2023 12:00am May 11, 2024 8:09am polyethylene glycol 3350 [id number] mg / potassium chloride 1480 mg / sodium bicarbonate 5720 mg / sodium chloride 64270 mg powder for oral solution (1 source) Osmotic Laxative Start: 03-27-2025 NuLYTELY Riley oral powder for reconstitution See Instructions, 1 EA, Refill(s) 0, follow up physicians insctructions, [facility]/pharmacy #[id number], 170, cm, 03/27/25 10:23:00 EDT, Height/Length Dosing, 86.9, kg, 03/27/25 10:23:00 EDT, Weight Dosing Start Date: 03/27/25 Status: Ordered Quantity: 1.0 Unit: EA Repeat number: 1 Indications: Pearce's esophagus without dysplasia; Change in bowel habit; Dysphagia, unspecified; Foreign body sensation, throat; Lower abdominal pain, unspecified; psyllium 3400 mg powder for oral suspension (3 sources) Start: 03-27-2025 Metamucil 3.4 g/5.2 g oral powder 3.4 gram, Oral, TID, PRN for constipation, # 1,042 gram, Refills(s) 0, Pharmacy: [facility]/pharmacy #[id number], 170, cm, 03/27/25 10:23:00 EDT, Height/Length Dosing, 86.9, kg, 03/27/25 10:23:00 EDT, Weight Dosing Start Date: 03/27/25 Status: Ordered Quantity: 1042.0 Unit: g Repeat number: 1 Indications: Pearce's esophagus without dysplasia; Change in bowel habit; Dysphagia, unspecified; Foreign body sensation, throat; Lower abdominal pain, unspecified; sennosides, custodial 8.6 mg oral tablet (3 [...] 08/30/2024 Discontinued sertraline 50 mg oral tablet (20 sources) Serotonin Reuptake Inhibitor Start: 01-29-2024 take 1 tablet by mouth once daily sertraline 50 mg Tab 50 mg = 1 tab(s), Oral, Daily, Refills(s) 0 Start Date: 10/19/24 Status: Ordered Repeat number: 1 sucralfate 100 mg/ml oral suspension (20 sources) Aluminum Complex Start: 04-02-2025 sucralfate 1 g/10 mL Oral Susp 10 mL 1 gm = 10 mL, Oral, QIDACHS, Refills(s) 0 Start Date: 04/02/25 Status: Ordered Repeat number: 1 Start: 02-16-2025 take 1 g by mouth fo ur times daily Carafate 1 g/10 mL Susp-Oral 1 gram = 10 mL, Oral, QID, # 280 mL, Refills(s) 0, Pharmacy: [facility]/pharmacy #[id number], 170.2, cm, 02/16/25 18:59:00 EDT, [...] Active vitamin b12 1 mg oral tablet (5 sources) Vitamin B12 Start: 10-20-2024 take 1 tablet by mouth once daily cyanocobalamin 1000 mcg Tab 1,000 mcg = 1 tab(s), Oral, Daily, # 30 tab(s), Refills(s) 0, Pharmacy: [facility]/pharmacy #[id number], 170.2, cm, 10/19/24 17:25:00 [...] Nausea/Vomiting, # 12 tab(s), Refills(s) 0, Pharmacy: [facility]/pharmacy #[id number], 170, cm, 09/20/20 16:03:00 EST, Height/Length Dosing, 87.5, kg, 09/20/20 16:03:00 EST, Weight Dosing Start Date: 09/20/20 Status: Ordered Completed/Discontinued Medications Medication Drug Class(es) Dates Sig (Normalized) Sig (Original) acetaminophen 325 mg / HYDROcodone bitartrate 5 mg oral tablet (16 sources) Opioid Agonist Start: 06-21-2019 End: 02-15-2023 take 1 tablet by mouth every six hours as needed for pain Hydrocodone-Acetami nophen ([place]) 5-325 mg Tablet Discontinued 1 TAB PO Q6H as needed for Pain June 21, 2019 12:00am February 15, 2023 9:46am Start: 11-12-2018 End: 01-30-2019 take 1 tablet by mouth every four to six hours as needed for pain Hydrocodone-Acetaminophen ([place]) 5-325 mg tablet Discontinued 1 TAB PO EVERY 4-6 HOURS as needed for pain 10 3 November 12, 2018 January 30, 2019 9:43am [id number] 200 actuat albuterol 0.09 mg/actuat metered dose inhaler (7 sources) beta2-Adrenergic Agonist Start: 10-07-2018 End: 11-12-2018 Albuterol Sulfate 90 [...] formoterol fumarate 0.0045 mg/actuat metered dose inhaler (8 sources) Corticosteroid, beta2-Adrenergic Agonist Start: 11-12-2018 End: 02-25-2019 take 1 puff(s) by inhalation twice daily Budesonide-Formote rol (Symbicort) 160-4.5 mcg/actuation Hfa Aerosol Inhaler Discontinued 2 PUFF INHALATION Twice daily November 12, 2018 1:00am February 25, 2019 6:46pm ciprofloxacin 500 mg oral tablet (12 sources) Quinolone Antimicrobial Start: 01-24-2018 ciprofloxacin HCl (CIPRO) 500 mg tablet dexlansoprazole 60 mg delayed release oral capsule (8 sources) Proton Pump Inhibitor Start: 02-25-2019 End: 06-21-2019 take 1 capsule by mouth once daily Dexlansoprazole 60 mg capsule,biphase delayed releas Discontinued 60 MG PO Daily February 25, 2019 12:00am June 21, 2019 1:42pm 1 ml diphenhydrAMINE hydrochloride 50 mg/ml cartridge (1 source) Histamine-1 Receptor Antagonist Start: 08-28-2024 End: 08-28-2024 25 mg, IntraVENous, ONCE, 1 dose, On Tue08/28/24 at 1145, IV Push at rate not to exceed 25 mg/min. docusate sodium 100 mg oral capsule (3 sources) Start: 08-29-2024 End: 09-14-2024 take 1 capsule by mouth once daily as needed for constipation docusate sodium (COLACE, DULCOLAX) 100 MG CAPS Take 100 mg by mouth daily as needed for Constipation (as needed for constipation) 30 capsule 1 08/30/2024 08/30/2024 Discontinued doxycycline hyclate 100 mg oral tablet (8 sources) Tetracycline-cla ss Drug Start: 11-12-2018 End: 01-30-2019 take 1 tablet by mouth twice daily Doxycycline Hyclate 100 mg tablet Discontinued 100 MG PO Twice daily 24 06November 12, 2018 1:00am January 30, 2019 9:43am 0.4 ml enoxaparin sodium 100 mg/ml prefilled syringe (1 source) Low Molecular Weight Heparin Start: 08-28-2024 inject 40 mg by subcutaneous injection once [...] capsule (1 source) Provitamin D2 Compound Start: 10-20-2024 End: 12-08-2024 ergocalciferol 50,000 intl units Cap 50,000 International_Unit = 1 cap(s), Oral, q7day, X 7 week(s), # 7 cap(s), Refills(s) 0, Pharmacy: [facility]/pharmacy #[id number], 170.2, cm, 10/19/24 17:25:00 EST, Height/Length Dosing, 90.5, kg, 10/19/24 17:25:00 EST, Weight Dosing Start Date: 10/20/24 Stop Date: 12/08/24 Status: Ordered 250 ml glucose 50 mg/ml / sodium chloride 9 mg/ml injection (1 source) Start: 08-28-2024 End: 08-29-2024 IntraVENous, at 50 mL/hr, CONTINUOUS, Starting on Tue08/28/24 at 2245 hydroCHLOROthiazide 25 mg / triamterene 37.5 mg oral capsule (16 sources) Potassium-sparin g Diuretic, Thiazide Diuretic Start: 01-30-2019 End: 02-15-2023 take 1 tablet by mouth once daily Triamterene-Hydroc hlorothiazid 37.5-25 mg capsule Discontinued 1 TAB PO Daily January 30, 2019 12:00am February 15, 2023 9:47am take 1 tablet by ana th every twenty-four hours Triamterene-HCTZ 37.5-25 MG 1 tablet in the morning Orally Once a day for 30 day(s) Active ibuprofen 800 mg oral tablet (8 sources) Nonsteroidal Anti-inflammatory Drug Start: 02-09-2019 End: 02-27-2019 take 1 tablet by mouth three times daily as needed for pain Ibuprofen 800 mg Tablet Discontinued 800 MG PO Three times daily as needed for Pain February 09, 2019 12:00am February 27, 2019 3:49pm losartan potassium 100 mg oral tablet (8 sources) Angiotensin 2 Receptor Serena Start: 11-12-2018 End: 02-15-2023 take 1 tablet by mouth once daily Losartan 100 mg Tablet Discontinued 100 MG PO Daily November 12, 2018 1:00am February 15, 2023 9:46am meclizine hydrochloride 25 mg oral tablet (8 sources) Antiemetic Start: 10-07-2018 End: 11-12-2018 take 1 tablet by mouth three times daily as needed Meclizine 25 mg Tablet Discontinued 25 MG PO Three times daily as needed for Vertigo October 07, 2018 1:00am November 12, 2018 4:42pm meloxicam 15 mg oral tablet (8 sources) Nonsteroidal Anti-inflammatory Drug Start: 01-30-2019 End: 02-25-2019 take 1 tablet by mouth once daily Meloxicam 15 mg tablet Discontinued 15 MG PO Daily January 30, 2019 12:00am February 25, 2019 6:46pm metoclopramide 5 mg oral tablet (20 sources) Dopamine-2 Receptor Antagonist Start: 03-25-2025 metoclopramide 5 mg Tab 120 EA, 0 Refill(s), TAKE 1 TABLET BY MOUTH BEFORE MEALS AND AT BEDTIME, Refills(s) 0 Start Date: 03/25/25 Status: Ordered Repeat number: 1 Start: 08-28-2024 End: 08-28-2024 10 mg, IntraVENous, [...] TID, # 120 tab(s), Refills(s) 0, Pharmacy: [facility]/pharmacy #[id number], 170, cm, 04/13/21 15:38:00 EDT, Height/Length Dosing, 84.4, kg, 04/13/21 15:38:00 EDT, Weight Dosing Start Date: 04/13/21 Status: Ordered Start: 04-13-2018 take 1 tablet by ana four times daily Reglan 10 mg Tab 10 mg = 1 tab(s), Oral, QID, # 120 tab(s), Refills(s) 0, Pharmacy: [facility]/pharmacy #[id number], 170, cm, 07/22/22 14:33:00 EST, Height/Length Dosing, 86.6, kg, 07/22/22 14:33:00 EST, Weight Dosing Start Date: 07/22/22 Status: Ordered Start: 04-13-2018 Reglan 10 MG 1 tablet daily as needed Orally once a day for 30 days Apr, Active metroNIDAZOLE 500 mg oral tablet (12 sources) Nitroimidazole Antimicrobial Start: 01-24-2018 metroNIDAZOLE (FLAGYL) 500 mg tablet omeprazole 40 mg delayed release oral capsule [...] day(s), # 90 cap(s), Refills(s) 1, Pharmacy: [facility]/pharmacy #[id number], 170, cm, 04/14/22 14:53:00 [...] at 1245 predniSONE 20 mg oral tablet (8 sources) Start: 10-07-2018 End: 11-12-2018 take 2 [...] 9:46am pyridostigmine bromide 60 mg oral tablet (5 sources) Start: 03-31-2023 End: 05-01-2024 take 1 tablet by mouth twice daily Pyridostigmine [place] 60 mg Tablet Discontinued 60 MG PO [...] surgery) traMADol hydrochloride 50 mg oral tablet (8 sources) Opioid Agonist Start: 02-27-2019 End: 06-21-2019 take 1 tablet by mouth every four to six hours as needed for pain Tramadol 50 mg tablet Discontinued 50 MG PO EVERY 4-6 HOURS as needed for pain 20 February 27, 2019 12:00am June 21, 2019 1:45pm Vitamin D (8 sources) Start: 04-26-2024 End: 05-01-2024 vitamin d [...] [Unspecified asthma, uncomplicated] Chronic Biliary tract disease (16 sources) Gallstone 01-08-2020 Episodic Calculus of urinary tract (16 sources) Kidney stone 05-10-2019 Episodic Coagulation and hemorrhagic disorders (2 sources) Von Willebrand's disease; Translations: [VON WILLEBRAND DISEASE] Onset: 02-04-2022 Chronic Conditions associated with dizziness or vertigo (4 sources) Dizziness; Translations: [Dizziness and giddiness] 01-07-2025 Episodic Deficiency and other anemia (1 source) Anemia; Translations: [Anemia, unspecified] Onset: 10-19-2024 Episodic Disorders of lipid metabolism (3 sources) Hyperlipidemia; Translations: [Hyperlipidemia, unspecified] Onset: 10-19-2024 Chronic Epilepsy; convulsions (20 sources) Seizure; Translations: [Unspecified convulsions] Onset: 10-19-2024 07-10-2020 Episodic Esophageal disorders (20 sources) Pearce's esophagus; Translations: [Pearce's esophagus without dysplasia] Onset: 01-11-2022 Chronic Essential hypertension (20 sources) Hypertensive disorder; Translations: [Essential (primary) hypertension] Onset: 11-30-2022 01-22-2020 Chronic Gastritis and duodenitis (1 source) Gastritis; Translations: [Gastritis, unspecified, without bleeding] Onset: 02-16-2025 Episodic Genitourinary symptoms and ill-defined conditions (6 sources) Incontinence 02-21-2024 Chronic Genitourinary symptoms and ill-defined conditions (20 sources) History of urinary tract infection; Translations: [Proteinuria] Onset: 11-30-2022 02-24-2021 Episodic Headache; including migraine (20 sources) Migraine; Translations: [Migraine, unspecified, not intractable, without status migrainosus] Onset: 04-07-2022 05-10-2019 Chronic Heart valve disorders (17 sources) Mitral valve prolapse; Translations: [Nonrheumatic mitral (valve) prolapse] Onset: 11-04-2022 09-08-2019 Chronic Miscellaneous mental health disorders (1 source) Psychological and behavioral factors associated with disorders or diseases classified elsewhere; Translations: [Psychological factors affecting medical condition] Onset: 07-13-2023 Chronic Mood disorders (3 sources) Major depressive disorder; Translations: [Major depressive [...] B group vitamins] Onset: 10-20-2024 Episodic Osteoarthritis (17 sources) Arthritis; Translations: [Osteoarthritis] Onset: 10-19-2024 05-10-2019 Chronic Other aftercare (1 source) Other penitentiary (current) drug therapy; Translations: [OTH [employer]IESEL [employer] ENGINEER CURRENT DRUG THERAPY] Onset: 11-30-2022 Episodic Other aftercare (1 source) Long-term current use of drug therapy; Translations: [Other penitentiary (current) drug therapy] Onset: 10-19-2024 Episodic Other and unspecified benign neoplasm (2 sources) Polyp of colon; Translations: [Polyp of colon] Onset: 06-05-2025 Episodic Other circulatory disease (3 sources) Feeling of lump in throat 03-25-2025 Episodic Other connective tissue disease (1 source) Facial weakness; Translations: [R29.810] Onset: 10-19-2024 Episodic Other connective tissue disease (1 source) Neurological symptom; Translations: [Unspecified symptoms and signs involving the nervous system] Onset: 10-19-2024 Episodic Other diseases of bladder and urethra (18 sources) Traumatic urethral stricture; 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 EHR Cmte Other disorders of stomach and duodenum (1 source) Gastroparesis; Translations: [Gastroparesis] Onset: 08-25-2023 Episodic Other endocrine disorders (4 sources) Hypoglycemia; Translations: [Hypoglycemia, unspecified] 06-20-2024 Chronic Other gastrointestinal disorders (16 sources) Diarrhea 05-26-2021 Episodic Other gastrointestinal disorders (17 sources) Heartburn; Translations: [Heartburn] Onset: 04-14-2022 07-10-2020 Episodic Other gastrointestinal disorders (1 source) Digestive system finding; Translations: [Other specified symptoms and signs involving the digestive system and abdomen] Onset: 04-14-2022 Episodic Other gastrointestinal disorders (12 sources) Irregular bowel habits 04-14-2022 Episodic Other gastrointestinal disorders (17 sources) Constipation; Translations: [Constipation, unspecified] 09-20-2022 Episodic Other gastrointestinal disorders (8 sources) Esophageal dysphagia; Translations: [Dysphagia, unspecified] Episodic Other gastrointestinal disorders (5 sources) Constipation, unspecified; Translations: [CONSTIPATION UNSPECIFIED] Onset: 08-17-2022 Episodic Other gastrointestinal disorders (9 sources) Dark stools 09-20-2022 Episodic Other gastrointestinal disorders (9 sources) Hard stool 09-20-2022 Episodic Other gastrointestinal disorders (20 sources) Dysphagia; Translations: [Dysphagia, unspecified] Onset: 08-15-2024 05-16-2023 Episodic Comment on above: Problem List clean-u p per request of Phys. EHR Cmte Other gastrointestinal disorders (5 sources) Disorder of abdomen; Translations: [Peritoneal adhesions (postprocedural) (postinfection)] 04-26-2024 Episodic Other gastrointestinal disorders (3 sources) Peritoneal adhesions (postprocedural) (postinfection); Translations: [Peritoneal adhesions (postoperative) (postinfection)] 04-26-2024 Episodic Other gastrointestinal disorders (5 sources) Altered bowel function; Translations: [Change in bowel habit] Onset: 03-27-2025 Episodic Other injuries and conditions due to external causes (16 sources) Bezoar 05-26-2021 Episodic Other injuries and conditions due to external causes (1 source) Foreign body in digestive tract; Translations: [Foreign body in stomach, sequela] Onset: 01-28-2022 Episodic Other injuries and conditions due to external causes (15 sources) Foreign body in stomach; Translations: [Foreign [...] Chronic Other nutritional; endocrine; and metabolic disorders (6 sources) Obesity; Translations: [Obesity, unspecified] Onset: 10-19-2024 08-17-2023 Chronic Comment on above: Problem List clean-u p per request of Phys. EHR Cmte Other nutritional; endocrine; and metabolic disorders (17 sources) Body mass index 25-29 - overweight; Translations: [Overweight] 10-18-2019 Episodic Other screening for suspected conditions (not mental disorders or infectious disease) (10 sources) Encounter for screening mammogram for malignant [...] unspecified] Onset: 12-01-2023 Episodic Residual codes; unclassified (5 sources) History of hernia repair; Translations: [Other specified postprocedural states] 08-17-2023 Episodic Comment on above: Problem List clean-u p per request of Phys. EHR Cmte Residual codes; unclassified (5 sources) Early satiety; Translations: [Early satiety] Onset: 03-27-2025 Episodic Spondylosis; intervertebral disc disorders; other back problems (9 sources) Backache 09-20-2022 Episodic Sprains and strains (17 sources) Low back strain; Translations: [Strain of [...] [LOW BACK PAIN, UNSPECIFIED] Onset: 04-07-2022 Unclassified (8 sources) Asymptomatic microscopic hematuria 02-16-2024 Urinary tract infections (18 sources) Urinary tract infectious disease; Translations: [Urinary [...] W/OTHER HOT FLUIDS INITIAL] Onset: 08-23-2022 Episodic Fluid and electrolyte disorders (9 sources) Dehydration; Translations: [Hypokalemia] Onset: 04-07-2022 08-30-2024 Episodic Intestinal obstruction without hernia (16 sources) Partial intestinal obstruction, unspecified as to cause; Translations: [Small bowel obstruction] Onset: 03-27-2022 Episodic Other connective tissue disease [...] the digestive system] Onset: 02-15-2024 Episodic Other gastrointestinal disorders (1 source) Other dysphagia; Translations: [Other dysphagia] Onset: 08-15-2024 Episodic Other lower respiratory disease (2 sources) Shortness of breath; Translations: [Shortness of Breath] Onset: 05-14-2024 Episodic Other nutritional; endocrine; and metabolic disorders [...] COUGH, UNSPECIFIED; Translations: [COUGH, UNSPECIFIED] Onset: 07-05-2022 Unclassified (2 sources) Foreign body sensation; Translations: [Foreign body sensation, throat] Onset: 03-25-2025 Varicose veins of lower extremity (1 source) Varicose veins of bilateral lower extremities with pain; Translations: [VARICOSE VNS MACARIO LOW EXTREM W/PAIN] Onset: 09-10-2022 Episodic Viral infection (1 source) Viral infection, unspecified; Translations: [VIRAL INFECTION UNSPECIFIED] Onset: 07-06-2022 Episodic Results Test Name Value Interpretation Reference Range Facility Main OR Intraoperative Recor don 06-11-2025 Main OR Intraoperative Record Main OR Intraoperative Record IntraOp Document Type FTURO Summary Primary Physician: Flavio JUAREZ MD Finalized Date/Time: 06/11/25 09:54:31 Pt. Name: CONSTANTINO CARDOSO/Sex: 1970 Female Med Rec #: [id number] Physician: Flavio JUAREZ MD Financial #: [id number] Pt. Type: O Room/Bed: / Admit/Disch: 06/11/25 08:31:50 - Institution: Case Times FTURO Entry 1 Patient Times In Room 10/07/25 09:41:00 Out Room 06/11/25 09:50:00 Procedure Times Start 06/11/25 09:43:00 Stop 06/11/25 09:47:00 Anesthesia Times Last Modified By: Richard Randle 06/11/25 09:51:00 Case Attendance FTURO Entry 1 Entry 2 Entry 3 Case Attendee Flavio JUAREZ MD, Terry T Troike, Kendall R Role Performed Surgeon - Primary Analysis Reporting Developer - Primary Scrub - Primary Time In 06/11/25 09:42:00 06/11/25 09:41:00 06/11/25 09:41:00 Time Out 06/11/25 09:49:00 06/11/25 09:50:00 06/11/25 09:50:00 Procedure CYSTOSCOPY LOCAL WITH CYSTOSCOPY LOCAL WITH CYSTOSCOPY LOCAL WITH URETHRAL DILATION(.) URETHRAL DILATION(.) URETHRAL DILATION(.) Comments Last Modified By: Richard Randle Terry T Sweene, Terry T 06/11/25 09:51:01 06/11/25 09:51:01 06/11/25 09:51:01 Surgical Procedures FTURO Entry 1 Procedure Description Procedure CYSTOSCOPY LOCAL WITH Modifiers . URETHRAL DILATION Surgeon Description CYSTO UD Primary Procedure Yes Primary Surgeon Flavio JUAREZ MD Start 06/11/25 09:43:00 Stop 06/11/25 09:47:00 Anesthesia Type Local Surgical Service Urology Wound Class 2 - Clean-Contaminated Last Modified By: Richard Randle 06/11/25 09:51:02 General Comments: PATIENT COMPLAINED OF SEVERE PAIN DURING DILATION. DILATION STOPPED AND CYSTO PERFORMED. Brit RANDLE RN. General Case Data FTURO Pre-Care Text: Classifies surgical wound, implements aseptic technique, initiates traffic control Entry 1 Case Information OR URO 1 FT Case Level None Wound Class 2 - Clean-Contaminated Specialty Urology Preop Diagnosis RECURRENT UTI'S, Postop Same As Preop Yes URETHRAL STRICTURE, RENAL CYST Postop Diagnosis RECURRENT UTI'S, Outcomes Met? Yes URETHRAL STRICTURE, RENAL CYST Last Modified By: Richard Randle 06/11/25 09:42:50 Post-Care Text: The patient is free from signs and symptoms of infection EU IntraOp - FTURO Pre-Care Text: Implements protective measures prior to operative or invasive procedure, confirms identity before the operative or invasive procedure, verifies operative procedure, surgical site, and laterality Entry 1 EU Perioperative Protocols Procedure(s) CYSTOSCOPY LOCAL WITH Patient Identity ID Band Check, Patient URETHRAL DILATION(.) Verified (select at Participation least 2): Consents / H and P H&P, Surgery/Procedure Operative Site N/A Verified Consent Marking Verified Surgical Site Yes Laterality Verified n/a Verified Procedure Verified Yes Correct Patient Yes Position Verified Availability Equipment, Medication Time Out Flavio JUAREZ MD, Verified (If Participants Richard Randle, Applicable) Rudy [place] Time Out Complete 06/11/25 09:43:00 Allergies Reviewed? Yes Allergies Reviewed Self/Patient With Body Position Frog Legged Prep Area PERINEUM Prep Agents Betadine Scrub Skin. Condition Intact, [place], Warm, & Dry Additional None Specimens Collected Vitals - EU Blood Pressure 178/120 Pulse 57 bpm Respirations 18 br/min SPO2 97 % EBL 0 I&O - EU Total Intake 0 Total Output 0 Outcomes Met? Yes Last Modified By: Richard Randle 06/11/25 09:45:45 Post-Care Text: The patient is free from signs and symptoms of injury caused by extraneous objects Sign Out FTURO Entry 1 Before Patient Leaves OR Nurse verbally Yes Nurse verbally n/a confirms with the confirms with the team the name of team that the procedure(s) instrument, sponge, recorded and needle counts are correct (or N/A) Nurse verbally n/a Nurse verbally Yes confirms with the confirms with the team how the team whether there specimen is labeled are any equipment (including patient problems to be name), if applicable addressed Sign Out Complete 06/11/25 09:45:00 Last Modified By: Richard Randle 06/11/25 09:45:59 Case Comments Finalized By: Richard Randle Document Signatures Signed By: Richard Randle 06/11/25 09:54 Normal [facility] Main OR Preoperative Recordo n 06-11-2025 Main OR Preoperative Record Main OR Preoperative Record Holding Area Document Type FTURO Summary Primary Physician: Flvaio JUAREZ MD Finalized Date/Time: 06/11/25 09:23:13 Pt. Name: CONSTANTINO CARDOSOO.B./Sex: 1970 Female Med Rec #: [id number] Physician: Flavio JUAREZ MD Financial #: [id number] Pt. Type: O Room/Bed: / Admit/Disch: 06/11/25 08:31:50 - Institution: Case Times Holding FTURO Pre-Care Text: Verifies consent for planned procedure, identifies individual values and wishes concerning care, includes family members in perioperative teaching Secures patient's records' belongings, and valuables, maintains patient's dignity and privacy, and maintains patient confidentiality Entry 1 In Holding 06/11/25 09:22:00 Outcomes Met? Yes Last Modified By: Pati Bryson 06/11/25 09:22:16 Post-Care Text: The patient participates in decisions affecting his or her perioperative plan of care The patient's right to privacy is maintained Surgery Checklist FTURO Entry 1 Patient Birthday, ID Band Procedure History and Physical, Identification: Check, Patient Verification: Surgical Consent, With Participation Patient NPO after Midnight: n/a Date/Time: 06/11/25 09:22:00 Personal Items: Jewelry Personal Items clothes,shoes and purse Comment: Limitations: n/a Complaints of Pain: No Pain Comment: none Skin Integrity Unable to Visualize Vitals - EU Blood Pressure 178/120 Pulse 57 bpm Respirations 18 br/min SPO2 97 % Additional None Specimens Comment n/a Specimens Collected Residual Amount - 0 RN Reviewed Yes Post Void Last Modified By: Pati Bryson 06/11/25 09:23:10 Finalized By: Pati Bryson Document Signatures Signed By: Pati Bryson 06/11/25 09:23 Normal [facility] Operative Reporton Operative Report Operative Report Patient: CONSTANTINO CARDOSO Age: 55 years Sex: Female : 1970 Associated Diagnoses: None Author: Flavio JUAREZ MD Procedure Operative Information Details: Date/ Time: 06/11/2025 09:54:00. Pre-Op Dx: Hx of UTI's - Z87.440, Urethral Stricture - Other Post Infective Female - N35.12. Post-Op Dx: Same. Anesthesia Type: Local. Procedure: Local Cystoscopy with Urethral Dilation. Complications: None. Risks/Benefits/Informed Consent: Surgical risks, benefits, details of the procedure have been explained to the patient, Full informed consent has been obtained. Intraoperative Information Prepped: Patient is brought back to the endoscopy suite, Patient is placed in modified dorso/lithotomy position, Patient prepped in the usual fashion with Betadine solution, 2% Xylocaine Jelly is placed per Urethra, After waiting several minutes the Cystoscope is introduced. The Urethra is: Tight, Dry and brittle. It bled from the dilation.. The Bladder is: Normal, No bladder tumors. No GILDARDO. No prolapse. Moderate to severe atrophic vaginitis. The ureteral orifices: Show efflux of clear urine. The Urethra was dilated to: 26 Croatian w/ sounds, She did not tolerate the dilation well. We were only able to dilate her up to 26 [place]ian. The urethra bled. Devices Implanted: None. Removal: Cystoscope is removed, The patient tolerated it well. Postoperative Information Discharge: Patient is discharged home with antibiotic coverage, Follow up arranged. She will resume estradiol cream around her urethra several nights a week.. Normal [facility] Comment on above: Result Comment: Elec tronically Signed By: SUYAPA BAKER, Flavio Hairston\.br\Date and Time Signed: 06/11/25 09:55 EDT Ambulatory Visit Summaryon 1 Ambulatory Visit Summary Ambulatory Visit Summary CONSTANTINO CARDOSO Yovanny :1970 Visit Date:06/05/2025 Ambulatory Visit Instructions Your Diagnosis Lower abdominal pain Dysphagia Globus sensation Pearce esophagus Change in bowel habits Early satiety Acid reflux Your Care Team Attending Physician - Binh BAKER, Rambo Dietrich Primary Care Physician - JUDI YOUSSEF CNP This Is Your Medications List colestipol (Colestid 1 g Tab) esomeprazole (Nexium 40 mg Cap-EC) famotidine (famotidine 40 mg Tab) peppermint oil (Ibgard 90 mg oral delayed release capsule) Contact prescribing physician if questions or concerns acarbose (acarbose 25 mg oral tablet) acetaminophen (Tylenol 325 mg Tab) aspirin (aspirin 81 mg Oral EC Tab) cyanocobalamin (cyanocobalamin 1000 mcg Tab) estradiol topical (Estrace 0.1 mg/g Cream) levetiracetam (Keppra 500 mg Tab) lisinopril (lisinopril 40 mg Tab) metoclopramide (metoclopramide 5 mg Tab) metoprolol (metoprolol succinate 50 mg ER Tab) multivitamin (Multi Vitamins oral tablet) ondansetron (ondansetron 4 mg Dis Tab) pantoprazole (Pantoprazole [address] Tab) psyllium (Metamucil 3.4 g/5.2 g oral powder) sertraline (sertraline 50 mg Tab) sucralfate (sucralfate 1 g/10 mL Oral Susp 10 mL) Procedures Performed Esophagogastroduodenoscop y (01/11/2022), Esophagogastroduodenoscop y (05/13/2021), Esophagogastroduodenoscop y (09/30/2020), Colonoscopy (03/13/2020), Esophagogastroduodenoscop y (01/30/2020), Colonoscopy (05/17/2019), Esophagogastroduodenoscop y (05/17/2019), Hernia surgical mesh (03/02/2019), Cholecystectomy, Hernia repair, Hysterectomy. Discharge Vitals Heart Rate (Peripheral) 65 Blood Pressure 151/102 Height 67 in Height 170 cm Weight 198.195 lb Weight 89.9 kg BMI 31.11 What to do next Scheduled Follow-Up Appointments 2024 10:00 AM EDT With: Where: [facility] Tuesday 9:30 AM EDT With: Where: [facility] Tuesday2025 10:45 AM EST With: SUYAPA BAKER, Flavio Hairston Where: [facility] [address] [address]- Medications What How Much When Why Instructions New colestipol (Colestid 1 g Tab) 2 Tablets By Mouth Every day Refills: 3 Pickup at [facility]/pharmacy #[id number] New esomeprazole (Nexium 40 mg Cap-EC) 40 Milligram By Mouth 2 times a day Duration: 90 Days Refills: 3 Pharmacy may substitue PPI covered by insurance company Pickup at [facility]/pharmacy #[id number] New famotidine (famotidine 40 mg Tab) 1 Tablets By Mouth Once a day (at bedtime) Refills: 3 Pickup at [facility]/pharmacy #[id number] New peppermint oil (Ibgard 90 mg oral delayed release capsule) 2 Capsules By Mouth 2 times a day Refills: 3 Pickup at [facility]/pharmacy #[id number] Unchanged acarbose (acarbose 25 mg oral tablet) 1 Tablets By Mouth Every day Contact prescribing physician if questions or concerns Unchanged acetaminophen (Tylenol 325 mg Tab) 1 Tablets By Mouth Every 4 hours as needed for Pain Abdominal pain Contact prescribing physician if questions or concerns Unchanged aspirin (aspirin 81 mg Oral EC Tab) 1 Tablets By Mouth Every day Contact prescribing physician if questions or concerns Unchanged cyanocobalamin (cyanocobalamin 1000 mcg Tab) 1 Tablets By Mouth Every day Contact prescribing physician if questions or concerns Unchanged estradiol topical (Estrace 0.1 mg/ g Cream) 1 Gram Vaginal As Directed Recurrent UTI Apply pea-sized amount around urethra every night x 3 weeks, then 2 times weekly for maintenance Contact prescribing physician if questions or concerns Unchanged levetiracetam (Keppra 500 mg Tab) 1 Tablets By Mouth 2 times a day Contact prescribing physician if questions or concerns Unchanged lisinopril (lisinopril 40 mg Tab) 1 Tablets By Mouth Every day Contact prescribing physician if questions or concerns Unchanged metoclopramide (metoclopramide 5 mg Tab) 120 EA, 0 Refill(s), TAKE 1 TABLET BY MOUTH BEFORE MEALS AND AT BEDTIME Contact prescribing physician if questions or concerns Unchanged metoprolol (metoprolol succinate 50 mg ER Tab) 1 Tablets By Mouth Every day Contact prescribing physician if questions or concerns Unchanged multivitamin (Multi Vitamins oral tablet) 1 Tablets By Mouth Every day Contact prescribing physician if questions or concerns Unchanged ondansetron (ondansetron 4 mg Dis Tab) Contact prescribing physician if questions or concerns Unchanged pantoprazole (Pantoprazole [address] Tab) 1 Tablets By Mouth Contact prescribing physician if questions or concerns Unchanged psyllium (Metamucil 3.4 g/ 5.2 g oral powder) 3.4 Gram By Mouth 3 times a day as needed for for constipation Lower abdominal pain Dysphagia Globus sensation Pearce esophagus Change in bowel habits Contact prescribing physician if questions or concerns Unchanged sertraline (sertraline 50 mg Tab) 1 Tablets By Mouth Every day Con (more content not included)... [place] [facility] Ambulatory Visit Summary Ambulatory Visit Summary CONSTANTINO CARDOSO :1970 Visit Date:06/05/2025 Ambulatory Visit Instructions Your Diagnosis Lower abdominal pain Dysphagia Globus sensation Pearce esophagus Change in bowel habits Early satiety Acid reflux Your Care Team Attending Physician - Binh BAKER, Rambo Dietrich Primary Care Physician - JDUI YOUSSEF CNP This Is Your Medications List colestipol (Colestid 1 g Tab) esomeprazole (Nexium 40 mg Cap-EC) famotidine (famotidine 40 mg Tab) peppermint oil (Ibgard 90 mg oral delayed release capsule) Contact prescribing physician if questions or concerns acarbose (acarbose 25 mg oral tablet) acetaminophen (Tylenol 325 mg Tab) aspirin (aspirin 81 mg Oral EC Tab) cyanocobalamin (cyanocobalamin 1000 mcg Tab) estradiol topical (Estrace 0.1 mg/g Cream) levetiracetam (Keppra 500 mg Tab) lisinopril (lisinopril 40 mg Tab) metoclopramide (metoclopramide 5 mg Tab) metoprolol (metoprolol succinate 50 mg ER Tab) multivitamin (Multi Vitamins oral tablet) ondansetron (ondansetron 4 mg Dis Tab) pantoprazole (Pantoprazole [address] Tab) psyllium (Metamucil 3.4 g/5.2 g oral powder) sertraline (sertraline 50 mg Tab) sucralfate (sucralfate 1 g/10 mL Oral Susp 10 mL) Procedures Performed Esophagogastroduodenoscop y (01/11/2022), Esophagogastroduodenoscop y (05/13/2021), Esophagogastroduodenoscop y (09/30/2020), Colonoscopy (03/13/2020), Esophagogastroduodenoscop y (01/30/2020), Colonoscopy (05/17/2019), Esophagogastroduodenoscop y (05/17/2019), Hernia surgical mesh (03/02/2019), Cholecystectomy, Hernia repair, Hysterectomy. Discharge Vitals Heart Rate (Peripheral) 65 Blood Pressure 151/102 Height 67 in Height 170 cm Weight 198.195 lb Weight 89.9 kg BMI 31.11 What to do next Scheduled Follow-Up Appointments 2024 10:00 AM EDT With: Where: [facility] Tuesday 9:30 AM EDT With: Where: [facility] Tuesday2025 10:45 AM EST With: SUYAAP BAKER, Flavio Hairston Where: [facility] [address] [id number]- Medications What How Much When Why Instructions New colestipol (Colestid 1 g Tab) 2 Tablets By Mouth Every day Refills: 3 Pickup at [facility]/pharmacy #[id number] New esomeprazole (Nexium 40 mg Cap-EC) 40 Milligram By Mouth 2 times a day Duration: 90 Days Refills: 3 Pharmacy may substitue PPI covered by insurance company Pickup at [facility]/pharmacy #[id number] New famotidine (famotidine 40 mg Tab) 1 Tablets By Mouth Once a day (at bedtime) Refills: 3 Pickup at [facility]/pharmacy #[id number] New peppermint oil (Ibgard 90 mg oral delayed release capsule) 2 Capsules By Mouth 2 times a day Refills: 3 Pickup at [facility]/pharmacy #[id number] Unchanged acarbose (acarbose 25 mg oral tablet) 1 Tablets By Mouth Every day Contact prescribing physician if questions or concerns Unchanged acetaminophen (Tylenol 325 mg Tab) 1 Tablets By Mouth Every 4 hours as needed for Pain Abdominal pain Contact prescribing physician if questions or concerns Unchanged aspirin (aspirin 81 mg Oral EC Tab) 1 Tablets By Mouth Every day Contact prescribing physician if questions or concerns Unchanged cyanocobalamin (cyanocobalamin 1000 mcg Tab) 1 Tablets By Mouth Every day Contact prescribing physician if questions or concerns Unchanged estradiol topical (Estrace 0.1 mg/ g Cream) 1 Gram Vaginal As Directed Recurrent UTI Apply pea-sized amount around urethra every night x 3 weeks, then 2 times weekly for maintenance Contact prescribing physician if questions or concerns Unchanged levetiracetam (Keppra 500 mg Tab) 1 Tablets By Mouth 2 times a day Contact prescribing physician if questions or concerns Unchanged lisinopril (lisinopril 40 mg Tab) 1 Tablets By Mouth Every day Contact prescribing physician if questions or concerns Unchanged metoclopramide (metoclopramide 5 mg Tab) 120 EA, 0 Refill(s), TAKE 1 TABLET BY MOUTH BEFORE MEALS AND AT BEDTIME Contact prescribing physician if questions or concerns Unchanged metoprolol (metoprolol succinate 50 mg ER Tab) 1 Tablets By Mouth Every day Contact prescribing physician if questions or concerns Unchanged multivitamin (Multi Vitamins oral tablet) 1 Tablets By Mouth Every day Contact prescribing physician if questions or concerns Unchanged ondansetron (ondansetron 4 mg Dis Tab) Contact prescribing physician if questions or concerns Unchanged pantoprazole (Pantoprazole [address] Tab) 1 Tablets By Mouth Contact prescribing physician if questions or concerns Unchanged psyllium (Metamucil 3.4 g/ 5.2 g oral powder) 3.4 Gram By Mouth 3 times a day as needed for for constipation Lower abdominal pain Dysphagia Globus sensation Pearce esophagus Change in bowel habits Contact prescribing physician if questions or concerns Unchanged sertraline (sertraline 50 mg Tab) 1 Tablets By Mouth Every day Con (more content not included)... [place] [facility] Gastroenterology Office/Clin ic Noteon 06-05-2025 Gastroenterology Office/Clinic Note Gastroenterology Office/Clinic Note Chief Complaint Patient c/o abdominal pain, nausea, vomiting, bloating and diarrhea HPI Staff Established patient is a(n) 55 year old female who presents today for a follow up to EGD & Colonoscopy on 03/23/25. Patient c/o abdominal pain, nausea, vomiting, bloating and diarrhea 5 year EGD/Colon recall placed. IBgard and Bentyl helping abdominal pain? No Any diarrhea? yes Any blood thinners? aspirin Any GLP-1 agonists? no History of Present Illness Reviewed HPI collected by staff Review of Systems PHQ Score Initial Depression Screen Score: 0 SCORE All systems reviewed, negative; Except for above Physical Exam Vitals & Measurements HR: 65(Peripheral) BP: 151/102 HT: 170 cm HT: 67 in WT: 89.9 kg WT: 198.195 lb BMI: 31.11 No acute distress Procedure EGD: Impression and Plan 1. Esophageal landmarks identified, slightly torturous esophagus. 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 Empiric dilation with Lopez 54 Croatian was done, no resistance, post dilation there was no mucosal disruption or wall defect 2. Mild atrophy in the mucosa in the antrum of the stomach, otherwise normal examined stomach. Random biopsies were taken to rule H. pylori 3. Normal examined duodenum Colonoscopy: Impression and Plan 1. Small internal hemorrhoids seen on retroflexion 2. Mild sigmoid diverticulosis 3. 7 mm sessile polyp in the rectum, resected with cold snare completely and retrieved 4. 5 mm sessile polyp in the cecum, resected with cold snare completely and retrieved 5. Otherwise normal colonic mucosa, random biopsies were taken to rule out microscopic colitis 6. Normal examined terminal ileum Recommendations: Repeat colonoscopy:: In 5 years, Based on path Pathology: Final Diagnosis ( Modified ) A: COLON, RANDOM BIOPSY: ??? Colonic mucosa with no significant pathologic changes B: STOMACH, BIOPSY: ???Oxyntic and antral-type mucosa with focal mild reactive gastropathy ??? No intestinal metaplasia identified. ??? No H. pylori microorganisms identified with immunostain. Pending??? C: PEARCE ESOPHAGUS, BIOPSY: ???Esophageal squamocolumnar mucosa focal intestinal metaplasia (Pearce's esophagus) and mild to moderate chronic inflammation ??? No dysplasia identified. D: POLYP, CECUM, POLYPECTOMY: ???Luminal content, no viable tissue present for evaluation ???Multiple additional deeper levels examined. E: POLYP, RECTUM, POLYPECTOMY: ??? TUBULAR ADENOMA Assessment/Plan 1. Lower abdominal pain (R10.30: Lower abdominal pain, unspecified) Pain is sharp and constant Periumbilical Cannot drink milk, has pain and nausea afterwards Started in 2018 after she had hiatal hernia surgery, Dr Mortensen at [facility] in [place] Has early satiety, some postprandial vomiting EGD 2021: Short segment of Pearce's esophagus, C0M1. Biopsy inconclusive for Barretts. CT 03/14/25 @ [place]: Negative acute inflammatory process or bowel obstruction. 2.5 cm ovoid lesion involving the right kidney, indeterminate based on current examination. Consider dedicated renal mass protocol CT or MRI EGD 03/2025: slightly torturous esophagus. 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 Negative for H Pylori She does not think she tried the IBGard, prescribed again today. 2. Dysphagia (R13.10: Dysphagia, unspecified) Difficulty swallowing Feels like her throat is swollen and has feeling of something stuck in throat. Food and liquids Has globus sensation Has cough right away when eating/drinking Reports she previously had dilation with Dr Lucero in [facility] EGD 03/2025: slightly torturous esophagus, mucosa compatible with Pearce's, Empiric dilation with Lopez 54 Croatian Dilation helped for about a month but now having symptoms - Esophageal manometry ordered 3. Globus sensation (R09.A2: Foreign body sensation, throat) 4. 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 Change in bowel habits (R19.4: Change in bowel habit) Alternates between constipation and diarrhea Having about 7 BMs daily Diarrhea worse with coffee Hx of cholecystectomy, at age 19 Postprandial urgency Colonoscopy 2019: [place] Colonoscopy 03/2025: Small internal hemorrhoids seen on retroflexion, Mild sigmoid diverticulosis, 2 polyps removed- 1 was luminal content, the other was TA - Colestid prescribed 6. Early satiety (R68.81: Early satiety) 7. Acid reflux (K21.9: Gastro-esophageal reflux disease without esophagitis) Recently started having more reflux Taking pantoprazole - Switch Pantoprazole to Nexium BID before meals - Continue with Famotidine 8. Colon polyps (K (more content not included)... [place] [facility] Comment on above: Result Comment: Elec tronically Signed By: Carlota Berg MA\.br\Date and Time Signed: 06/05/25 11:17 EDT\.br\Electronically Co-Signed By: Binh BAKER, Rambo Dietrich\.br\Date and Time Co-Signed: 06/05/25 14:21 EDT Reminderson 04-18-2025 Reminders Reminders From: Domenica Gandhi I To: [facility] - Reminders/Recalls; Sent: 04/18/2025 14:56:11 EDT Show up: 03/05/2030 14:56:00 EDT Subject: EGD/Colon recall Due Date/Time: 04/02/2030 14:56:00 EDT Reminder/Recall 5 year EGD/Colonoscopy recall - hx colon polyps & Pearce esophagus Dr. Purcell 04/02/25 [facility] XR Adult Swallowing Function w/ Videoon 04-09-2025 XR Adult Swallowing Function w/ Video Exam Date/Time: 04/09/2025 09:14 EDT Reason for Exam: R10.30;Dysphagia Report IMPRESSION: ESSENTIALLY NEGATIVE MODIFIED BARIUM SWALLOW. A FULL REPORT WILL BE MADE BY THE SPEECH PATHOLOGY TEAM. EXAM: XR Adult Swallowing Function w/ Video DATE: 04/09/2025 8:50 AM CLINICAL HISTORY: Dysphagia, R10.30. COMPARISON: None available. TECHNIQUE: Lateral videofluoroscopy was provided during speech therapy evaluation during ingestion of various barium liquids and semisolids. FINDINGS: Oral and pharyngeal phases are within functional limits. 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 There is no significant laryngeal penetration, tracheal aspiration or significant residual collections observed. A full report will be made by the speech pathology team. Ka,r in mGy = 2.20 DAP = 52.33 (\XB5\Gy*m\XB2\) Ordering Provider: Rambo Purcell FINAL REPORT Dictated: 04/09/2025 10:31 am Axel Garcia MD Signed (Electronic Signature): 04/09/2025 10:31 am Signed by: Axel Garcia MD Transcribed by: DP Technologist: DPR [facility] Ambulatory Visit Summaryon 0 04-08-2025 Ambulatory Visit Summary Ambulatory Visit Summary CONSTANTINO CARDOSO Yovanny :1970 Visit Date:04/08/2025 Ambulatory Visit Instructions Your Diagnosis Complex renal cyst Other post-traumatic urethral stricture, female Recurrent UTI Your Care Team Attending Physician - Flavio JUAREZ MD Primary Care Physician - JUDI YOUSSEF CNP Referring Physician - JUDI YOUSSEF CNP This Is Your Medications List Contact prescribing physician if questions or concerns acarbose (acarbose 25 mg oral tablet) acetaminophen (Tylenol 325 mg Tab) aspirin (aspirin 81 mg Oral EC Tab) cyanocobalamin (cyanocobalamin 1000 mcg Tab) dicyclomine (Bentyl 10 mg Cap) estradiol topical (Estrace 0.1 mg/g Cream) levetiracetam (Keppra 500 mg Tab) lisinopril (lisinopril 40 mg Tab) metoclopramide (metoclopramide 5 mg Tab) metoprolol (metoprolol succinate 50 mg ER Tab) multivitamin (Multi Vitamins oral tablet) ondansetron (ondansetron 4 mg Dis Tab) pantoprazole (Pantoprazole [address] Tab) psyllium (Metamucil 3.4 g/5.2 g oral powder) sertraline (sertraline 50 mg Tab) sucralfate (sucralfate 1 g/10 mL Oral Susp 10 mL) Procedures Performed Esophagogastroduodenoscop y (01/11/2022), Esophagogastroduodenoscop y (05/13/2021), Esophagogastroduodenoscop y (09/30/2020), Colonoscopy (03/13/2020), Esophagogastroduodenoscop y (01/30/2020), Colonoscopy (05/17/2019), Esophagogastroduodenoscop y (05/17/2019), Hernia surgical mesh (03/02/2019), Cholecystectomy, Hernia repair, Hysterectomy. Discharge Vitals Heart Rate (Peripheral) 78 Respiratory Rate 18 Blood Pressure 136/88 Height 162 cm Height 64 in Weight 87.3 kg Weight 192.463 lb BMI 33.26 What to do next Scheduled Follow-Up Appointments Tuesday 9:00 AM EDT With: Where: [facility] Tuesday 9:15 AM EDT With: Binh BAKER, Rambo Dietrich Where: [facility] [address] [place] [address] [place] [phone]- Tuesday2025 10:45 AM EST With: Flavio JUAREZ MD Where: [facility] [address] [place] [address]- You Need to Schedule the Following Appointments Follow Up with Flavio JUAREZ MD, URL When: Comments: sched cysto/UD, 6 mos w/ MRI Where: [facility] [address], [place] [phone] Medications What How Much When Why Instructions Unchanged acarbose (acarbose 25 mg oral tablet) 1 Tablets By Mouth Every day Contact prescribing physician if questions or concerns Unchanged acetaminophen (Tylenol 325 mg Tab) 1 Tablets By Mouth Every 4 hours as needed for Pain Abdominal pain Contact prescribing physician if questions or concerns Unchanged aspirin (aspirin 81 mg Oral EC Tab) 1 Tablets By Mouth Every day Contact prescribing physician if questions or concerns Unchanged cyanocobalamin (cyanocobalamin 1000 mcg Tab) 1 Tablets By Mouth Every day Contact prescribing physician if questions or concerns Unchanged dicyclomine (Bentyl 10 mg Cap) 1 Capsules By Mouth 4 times a day Lower abdominal pain Dysphagia Globus sensation Pearce esophagus Duration: 14 Days Contact prescribing physician if questions or concerns Unchanged estradiol topical (Estrace 0.1 mg/ g Cream) 1 Gram Vaginal As Directed Recurrent UTI Apply pea-sized amount around urethra every night x 3 weeks, then 2 times weekly for maintenance Contact prescribing physician if questions or concerns Unchanged levetiracetam (Keppra 500 mg Tab) 1 Tablets By Mouth 2 times a day Contact prescribing physician if questions or concerns Unchanged lisinopril (lisinopril 40 mg Tab) 1 Tablets By Mouth Every day Contact prescribing physician if questions or concerns Unchanged metoclopramide (metoclopramide 5 mg Tab) 120 EA, 0 Refill(s), TAKE 1 TABLET BY MOUTH BEFORE MEALS AND AT BEDTIME Contact prescribing physician if questions or concerns Unchanged metoprolol (metoprolol succinate 50 mg ER Tab) 1 Tablets By Mouth Every day Contact prescribing physician if questions or concerns Unchanged multivitamin (Multi Vitamins oral tablet) 1 Tablets By Mouth Every day Contact prescribing physician if questions or concerns Unchanged ondansetron (ondansetron 4 mg Dis Tab) Contact prescribing physician if questions or concerns Unchanged pantoprazole (Pantoprazole [address] Tab) 1 Tablets By Mouth Contact prescribing physician if questions or concerns Unchanged psyllium (Metamucil 3.4 g/ 5.2 g oral powder) 3.4 Gram By Mouth 3 times a day as needed for for constipation Lower abdominal pain Dysphagia Globus sensation Pearce esophagus Change in bowel habits Contact prescribing physician if questions or concerns Unchanged sertraline (sertraline 50 mg Tab) 1 Tablets By Mouth Every day Contact prescribing physician if questions or concerns Unchanged sucralfate (sucralfate 1 g/ 10 mL Oral Susp 10 mL) 10 Milliliter By (more content not included)... [place] [facility] Ambulatory Visit Summary Ambulatory Visit Summary CONSTANTINO CARDOSO :1970 Visit Date:04/08/2025 Ambulatory Visit Instructions Your Diagnosis Complex renal cyst Other post-traumatic urethral stricture, female Recurrent UTI Your Care Team Attending Physician - Flavio JUAREZ MD Primary Care Physician - JUDI YOUSSEF CNP Referring Physician - JUDI YOUSSEF CNP This Is Your Medications List Contact prescribing physician if questions or concerns acarbose (acarbose 25 mg oral tablet) acetaminophen (Tylenol 325 mg Tab) aspirin (aspirin 81 mg Oral EC Tab) cyanocobalamin (cyanocobalamin 1000 mcg Tab) dicyclomine (Bentyl 10 mg Cap) estradiol topical (Estrace 0.1 mg/g Cream) levetiracetam (Keppra 500 mg Tab) lisinopril (lisinopril 40 mg Tab) metoclopramide (metoclopramide 5 mg Tab) metoprolol (metoprolol succinate 50 mg ER Tab) multivitamin (Multi Vitamins oral tablet) ondansetron (ondansetron 4 mg Dis Tab) pantoprazole (Pantoprazole [address] Tab) psyllium (Metamucil 3.4 g/5.2 g oral powder) sertraline (sertraline 50 mg Tab) sucralfate (sucralfate 1 g/10 mL Oral Susp 10 mL) Procedures Performed Esophagogastroduodenoscop y (01/11/2022), Esophagogastroduodenoscop y (05/13/2021), Esophagogastroduodenoscop y (09/30/2020), Colonoscopy (03/13/2020), Esophagogastroduodenoscop y (01/30/2020), Colonoscopy (05/17/2019), Esophagogastroduodenoscop y (05/17/2019), Hernia surgical mesh (03/02/2019), Cholecystectomy, Hernia repair, Hysterectomy. Discharge Vitals Heart Rate (Peripheral) 78 Respiratory Rate 18 Blood Pressure 136/88 Height 162 cm Height 64 in Weight 87.3 kg Weight 192.463 lb BMI 33.26 What to do next Scheduled Follow-Up Appointments Tuesday 9:00 AM EDT With: Where: [facility] Tuesday 9:15 AM EDT With: Binh BAKER, Rambo Dietrich Where: [facility] [address] [facility] [address] [place] [phone]- Tuesday2025 10:45 AM EST With: Flavio JUAREZ MD Where: [facility] [address] [place] [address] [place] [address]- You Need to Schedule the Following Appointments Follow Up with SUYAPA BAKER, Flavio Hairston, URL When: Comments: sched cysto/UD, 6 mos w/ MRI Where: [facility] [address], [place] [address]- [phone] Medications What How Much When Why Instructions Unchanged acarbose (acarbose 25 mg oral tablet) 1 Tablets By Mouth Every day Contact prescribing physician if questions or concerns Unchanged acetaminophen (Tylenol 325 mg Tab) 1 Tablets By Mouth Every 4 hours as needed for Pain Abdominal pain Contact prescribing physician if questions or concerns Unchanged aspirin (aspirin 81 mg Oral EC Tab) 1 Tablets By Mouth Every day Contact prescribing physician if questions or concerns Unchanged cyanocobalamin (cyanocobalamin 1000 mcg Tab) 1 Tablets By Mouth Every day Contact prescribing physician if questions or concerns Unchanged dicyclomine (Bentyl 10 mg Cap) 1 Capsules By Mouth 4 times a day Lower abdominal pain Dysphagia Globus sensation Pearce esophagus Duration: 14 Days Contact prescribing physician if questions or concerns Unchanged estradiol topical (Estrace 0.1 mg/ g Cream) 1 Gram Vaginal As Directed Recurrent UTI Apply pea-sized amount around urethra every night x 3 weeks, then 2 times weekly for maintenance Contact prescribing physician if questions or concerns Unchanged levetiracetam (Keppra 500 mg Tab) 1 Tablets By Mouth 2 times a day Contact prescribing physician if questions or concerns Unchanged lisinopril (lisinopril 40 mg Tab) 1 Tablets By Mouth Every day Contact prescribing physician if questions or concerns Unchanged metoclopramide (metoclopramide 5 mg Tab) 120 EA, 0 Refill(s), TAKE 1 TABLET BY MOUTH BEFORE MEALS AND AT BEDTIME Contact prescribing physician if questions or concerns Unchanged metoprolol (metoprolol succinate 50 mg ER Tab) 1 Tablets By Mouth Every day Contact prescribing physician if questions or concerns Unchanged multivitamin (Multi Vitamins oral tablet) 1 Tablets By Mouth Every day Contact prescribing physician if questions or concerns Unchanged ondansetron (ondansetron 4 mg Dis Tab) Contact prescribing physician if questions or concerns Unchanged pantoprazole (Pantoprazole [address] Tab) 1 Tablets By Mouth Contact prescribing physician if questions or concerns Unchanged psyllium (Metamucil 3.4 g/ 5.2 g oral powder) 3.4 Gram By Mouth 3 times a day as needed for for constipation Lower abdominal pain Dysphagia Globus sensation Pearce esophagus Change in bowel habits Contact prescribing physician if questions or concerns Unchanged sertraline (sertraline 50 mg Tab) 1 Tablets By Mouth Every day Contact prescribing physician if questions or concerns Unchanged sucralfate (sucralfate 1 g/ 10 mL Oral Susp 10 mL) 10 Milliliter By (more content not included)... [place] [facility] Reminderson 04-08-2025 Reminders Reminders From: Radha Moy To: [facility] - Recalls Juarez; Sent: 04/08/2025 12:59:40 EDT Show up: 08/05/2025 12:59:00 EST Subject: Abd MRI Due Date/Time: 09/02/2025 12:59:00 EST Reminder/Recall Patient needs ABD MRI with/wo contrast ATTN: kidneys to be carvajal prior to Oct 2025 appt. Pt would like [facility] [place] [facility] Surgical Pathology Reporton 04-08-2025 Surgical Pathology Report [facility] [address] [address]- Surgical Pathology Report Collected Date/Time: 04/02/2025 12:53 EDT Pathologist: Taylor Cummings MD Received Date/Time: 04/02/2025 13:59 EDT Binh BAKER, Rambo Purcell MD, Rambo Dietrich 07 Surgical Pathology Report - 04/08/2025 17:08 EDT - Auth (Verified) Final Diagnosis A: COLON, RANDOM BIOPSY: - Colonic mucosa with no significant pathologic changes B: STOMACH, BIOPSY: - Oxyntic and antral-type mucosa with focal mild reactive gastropathy - No intestinal metaplasia identified. - No H. pylori microorganisms identified with immunostain. Pending ??? C: PEARCE ESOPHAGUS, BIOPSY: - Esophageal squamocolumnar mucosa focal intestinal metaplasia (Pearce's esophagus) and mild to moderate chronic inflammation - No dysplasia identified. D: POLYP, CECUM, POLYPECTOMY: - Luminal content, no viable tissue present for evaluation - Multiple additional deeper levels examined. E: POLYP, RECTUM, POLYPECTOMY: - TUBULAR ADENOMA (Electronic Signature) Taylor. MD Emiliano 04/08/2025 17:08 Clinical Information Lower abdominal pain, dysphagia, globus sensation, Pearce's esophagus, early satiety Pre-Op Diagnosis: Lower abdominal pain, dysphagia, globus sensation, Pearce's esophagus, early satiety Procedure: Colonoscopy, EGD Post-Op Diagnosis: 1. Small internal hemorrhoids seen on retroflexion 2. Mild sigmoid diverticulosis 3. 7 mm sessile polyp in the rectum, resected with cold snare completely and retrieved 4. 5 mm sessile polyp in the cecum, resected with cold snare completely and retrieved 5. Otherwise normal colonic mucosa, random biopsies were taken to rule out microscopic colitis 6. Normal examined terminal ileum 7. Esophageal landmarks identified, slightly torturous esophagus. 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 Empiric dilation with Lopez 54 Croatian was done, no resistance, post dilation there was no mucosal disruption or wall defect 8. Mild atrophy in the mucosa in the antrum of the stomach, otherwise normal examined stomach. Random biopsies were taken to rule H. pylori 9. Normal examined duodenum Specimen(s) Received A.Random colon biopsy B.Gastric biopsy C.Pearce's esophagus biopsy D.Cecal polyp E.Rectal polyp Surgical Pathology Report Collected Date/Time: 04/02/2025 12:53 EDT Pathologist: Taylor Cummings MD Received Date/Time: 04/02/2025 13:59 EDT Binh BAKER, Rambo Purcell MD, Rambo Dietrich Gross Description A: Received in formalin labeled with patient name, number, and random colon biopsy are multiple fragments of hager/pink tissue ranging from less than 0.1 cm up to 0.5 cm in greatest dimension. Specimen is entirely submitted in one cassette. B: Received in formalin labeled with patient name, number, and gastric biopsy are two fragments of hager/pink tissue each measuring 0.1 cm. Specimen is entirely submitted in one cassette. C: Received in formalin labeled with patient name, number, and Pearce esophagus biopsy are two fragments of hager/pink tissue measuring 0.1 and 0.2 cm. The specimen is entirely submitted in one cassette. D: Received in formalin labeled with patient name, number, and cecal polyp are multiple fragments of yellow/brown soft tissue and/or material each measuring less than 0.1 cm. Specimen measures in aggregate 1 x 1 x less than 0.1 cm. No tissue is grossly identified. Specimen is filtered and entirely submitted in one cassette. E: Received in formalin labeled with patient name, number, and rectal polyp is a single hager/pink polypoid tissue measuring 0.4 x 0.4 x 0.2 cm. The specimen is entirely submitted in one cassette. (DC) DC:MCA Microscopic Description The use of one or more reagents in the above tests is regulated as an analyte specific reagent (ASR). The test or tests are ordered following initial H&E microscopic examination. The performance characteristics were determined by the [facility]. They have not been cleared or approved by the US Food and Drug Administration. The FDA has determined that such clearance or approval is not necessary. These tests are used for clinical purposes. They should not be regarded as investigational or for research. Appropriate positive and negative controls are performed and are acceptable. This report was transcribed using voice recognition technology and might contain unintended computerized enterprise application architect errors. Microscopic examination performed unless gross only specified. Quality was accessed and acceptable. Normal [facility] Comment on above: Performed By: #### [id number] #### [facility] [address] [place] [address] Urology Office/Clinic Noteon 04-08-2025 Urology Office/Clinic Note Urology Office/Clinic Note Chief Complaint new pt for complex renal cyst HPI Staff Pt is a 54 year female new patient referred by Judi JEAN at [facility] for complex renal cyst. Cyst measures 2.2 x1.4 x 1.8 cm Pt denies pain/burning denies visible blood pt reports rt flank pain that radiates to the RLQ History of Present Illness Tests reviewed: reviewed UA, TRINI, CT scans I have reviewed the previous health record information and history for this patient from external providers and Yolanda Lou NP. I have reviewed and verified the staff HPI to be accurate for this encounter. Review of Systems PHQ Score Initial Depression Screen Score: 0 SCORE ROS - Provider Constitutional: denies weight loss, denies hot flashes. Eyes: denies eye problems. Gastrointestinal: denies nausea, denies vomiting. Cardiovascular: denies chest pain or angina. Integumentary: no dryness Musculoskeletal: denies musculoskeletal symptoms. ENMT: denies otolaryngeal symptoms. Respiratory: no shortness of breath. Heme/Lymph: denies easy bleeding tendency, denies easy bruising tendency. Psychiatric: no confusion, no anxiety. Genitourinary: See HPI. Physical Exam Vitals & Measurements HR: 78(Peripheral) RR: 18 BP: 136/88 HT: 162 cm HT: 64 in WT: 87.3 kg WT: 192.463 lb BMI: 33.26 General Appearance: alert , no acute distress, well nourished, well developed female. Assessment/Plan Re-referral for complex renal cyst. Last seen by AO 02/21/24. 1. Complex renal cyst (N28.1: Cyst of kidney, acquired) CT AP w con 08/28/24 [facility] - Similar intermediate density lesion along the anterior midpole cortex of the right kidney measuring 2.[address] AP w con 03/12/25 [facility] - R parapelvic hypodensity noted involving R kidney 2.1 x 1.6 cm in size. Question internal septations noted. CT AP w con 03/14/25 [facility] - Ovoid lesion R kidney 2.5 cm is indeterminate. TRINI 03/21/25 [facility] - 2.2 x 1.4 x 1.8 cm irregular, complex parapelvic cystic area at RSP.No significantly changed. Denies gross hematuria. Has back pain, not urologically related. Reviewed imaging results. Educated pt on complex vs simple renal cysts. Advised pt complex renal cysts require monitoring given risk of malignancy. Cyst does not currently appear significantly complex. Has had 4 CT scans since December. Will avoid further radiation exposure at this time. Recommended MRI in 6 mos. -Schedule MRI Abd w/wo con in 6 mos 2. Other post-traumatic urethral stricture, female (N35.028: Other post-traumatic urethral stricture, female) s/p cysto/UD 11/06/20 by DLS - tight urethra, dilated to 28 Croatian w/ sounds, mild trabeculation [1] States UD helped improve stream with mildly with UTI prevention. Stream slows as she voids, has learned to tolerate it. Also reports recent UTIs. Discussed need for repeat UD. Risks/benefits discussed. Pt wishes to proceed. -Will schedule Cysto with UD. The procedure risks, benefits, details, and treatment alternatives have been discussed with the patient. These include bleeding, infection, recurrent scar in over 50%, need for repeat dilation or other procedures, no symptom relief with dilation, among others. Full informed consent has been obtained. Will order Local anesthesia. 3. Recurrent UTI (N39.0: Urinary tract infection, site not specified) See #2. Follow-up With When Contact Information SUYAPA BAKER, Flavio Hairston, [facility] [address], [place] [address]- [phone] Additional Instructions: sched cysto/UD, 6 mos w/ MRI Patient Education Urethral Dilation INathalia, personally scribed for Dr. Juarez on 04/08/2025 12:52:31. . Documentation recorded by the scribe, Nathalia Valdivia, accurately reflects the services(s) I performed and decisions made by me. Authenticated by Dr. Juarez on 04/08/2025 12:55:01. Problem List/Past Medical History Ongoing Acid reflux Arthritis Asymptomatic microscopic hematuria Back pain Pearce esophagus BMI 26.0-26.9,adult Change in bowel habits Complex renal cyst Constipation Dark stools Diarrhea Dysphagia Early satiety Epigastric pain Foreign body in stomach, sequela Gallstone Gastric bezoar Gastroparesis Globus sensation Hard stool Heartburn Hernia, hiatal High blood pressure Hx of urinary tract infection Irregular bowel habits Kidney stones Lower abdominal pain Migraines Mixed incontinence urge and stress Nausea Nausea and vomiting Other post-traumatic urethral stricture, female Proteinuria Recurrent UTI Seizures Stomach pain Urinary urgency Historical Mitral valve prolapse Procedure/Surgical History Esophagogastroduodenoscop y (01/11/2022), Esophagogastroduodenoscop y (05/13/2021), Esophagogastroduodenoscop y (09/30/2020), Colonoscopy (03/13/2020), Esophagogastroduodenoscop y (01/30/2020), Colonoscopy (05/17/2019), Esophagogastroduodenoscop y (05/17/2019), Hernia surgical mesh (/ (more content not included)... Normal [facility] Comment on above: Result Comment: Elec tronically Signed By: Flavio JUAREZ MD\.br\Date and Time Signed: 04/08/25 12:55 EDT\.br\Electronically Co-Signed By: Nathalia Valdivia\.br\Date and Time Co-Signed: 04/08/25 12:52 EDT Main OR Intraoperative Recor don 04-03-2025 Main OR Intraoperative Record Main OR Intraoperative Record IntraOp Document Type FT Summary Primary Physician: Rambo Purcell MD Finalized Date/Time: 04/03/25 09:36:35 Pt. Name: CONSTANTINO CARDOSOO.B./Sex: 1970 Female Med Rec #: [id number] Physician: Rambo Purcell MD Financial #: [id number] Pt. Type: O Room/Bed: / Admit/Disch: 04/02/25 11:14:25 - 04/02/25 23:59:59 Institution: Case Times FT Entry 1 Patient Times In Room 04/02/25 12:46:00 Out Room 04/02/25 13:14:00 Procedure Times Start 04/02/25 12:50:00 Stop 04/02/25 13:11:00 Anesthesia Times Start 04/02/25 12:46:00 Stop 04/02/25 13:14:00 Time at [facility] 04/02/25 13:01:00 Last Modified By: Maddy PERRY, Kemi F 04/02/25 13:12:55 General Comments: 1255 EGD completed. /,RN 1257 Colonoscopy started. /,RN Case Attendance FT Entry 1 Entry 2 Entry 3 Case Attendee Orestes Garcia RN, Kemi Marcano CST, Wen Ferreira Role Performed Anesthesiologist Analysis Reporting Developer - Primary Scrub - Primary Hand Nailer Time In 04/02/25 12:46:00 04/02/25 12:46:00 04/02/25 12:46:00 Time Out 04/02/25 13:14:00 04/02/25 13:14:00 04/02/25 13:14:00 Procedure EGD AND COLONOSCOPY(.) EGD AND COLONOSCOPY(.) EGD AND COLONOSCOPY(.) Comments Dr. Li supervising case Last Modified By: Maddy RN, Kemi Castañeda RN, Kemi Castañeda RN, Kemi F 04/02/25 13:15:15 F 04/02/25 13:15:15 F 04/02/25 13:15:15 Entry 4 Entry 5 Case Attendee Binh BAKER, Gina Azul Role Performed Surgeon - Primary Staff - Other Time In 04/02/25 12:46:00 04/02/25 12:54:00 Time Out 04/02/25 13:14:00 04/02/25 13:14:00 Procedure EGD AND COLONOSCOPY(.) EGD AND COLONOSCOPY(.) Comments help in room Last Modified By: Maddy RN, Kemi Castañeda RN, Kemi F 04/02/25 13:15:15 F 04/02/25 13:15:15 Perioperative Protocols FT Pre-Care Text: Implements protective measures prior to operative or invasive procedure, confirms identity before the operative or invasive procedure, verifies operative procedure, surgical site, and laterality Entry 1 Procedure(s) EGD AND COLONOSCOPY(.) Patient Identity Birthday, ID Band Verified (select at Check, Patient least 2): Participation Consents / H and P Anesthesia Consent, Operative Site N/A Verified H&P, Surgery/Procedure Marking Verified Consent Surgical Site No Laterality Verified n/a Verified Procedure Verified Yes Correct Patient Yes Position Verified Availability Equipment, Medication Prep Dry n/a Verified (If Applicable) PreOp Antibiotic No Time Out Orestes Garcia Given Maddy Tom RN, Binh Stover MD, Krys Diamond CST, Wen Ferreira Time Out Complete 04/02/25 12:48:00 Outcomes Met? Yes Last Modified By: Kemi Castañeda RN 04/02/25 12:48:15 Post-Care Text: The patient is free from signs and symptoms of injury caused by extraneous objects Allergy Information FT Pre-Care Text: Verifies allergies Entry 1 Allergies Reviewed? Yes Allergies Reviewed Self/Patient With Outcomes Met? Yes Last Modified By: Kemi Castañeda RN 04/02/25 12:48:21 Post-Care Text: The patient received appropriate medication(s) safely administered during the perioperative period Surgical Procedures FT Entry 1 Procedure Description Procedure EGD AND COLONOSCOPY Modifiers . Surgeon Description EGD with Pearce's esophagus biopsy, gastric biopsy, esophageal dilation using #54Fr Lopez dilator. Colonoscopy with random colon biopsy, cecal polypectomy, rectal polypectomy. Primary Procedure Yes Primary Surgeon Binh BAKER, Rambo Dietrich Start 04/02/25 12:50:00 Stop 04/02/25 13:11:00 Anesthesia Type General Surgical Service Gastroenterology Wound Class 2 - Clean-Contaminated Last Modified By: Kemi Castañeda RN 04/02/25 13:11:59 General Case Data FT Pre-Care Text: Classifies surgical wound, implements aseptic technique, initiates traffic control Entry 1 Case Information OR ENDO 1 FT Case Level Level 2 Wound Class 2 - Clean-Contaminated Specialty Gastroenterology ASA Class 3 Preop Diagnosis Lower abdominal pain, Postop Same As Preop No dysphagia, globus sensation, Pearce's esophagus, early satiety Postop Diagnosis EGD- tortuous Outcomes Met? Yes esophagus, atrophy in antrum of stomach, Pearce's esophagus. Colonoscopy- cecal polyp, diverticulosis, rectal polyp, small internal hemorrhoids Last Modified By: Kemi Castañeda RN 04/02/25 13:12:51 Post-Care Text: The patient is free from signs and symptoms of infection Skin Assessment (Pre Procedure) FT Pre-Care Text: Implements protective measures to prevent skin/ tissue injury due to thermal or mechanical sources Evaluates for signs and symptoms of physical injury to skin and tissue Entry 1 Skin Integrity Intact, [place], Warm, & Skin Abnormality No Dry Outcomes Met? Ye (more content not included)... Normal [facility] Discharge Instructionson Discharge Instructions Discharge Instructions CONSTATNINO CARDOSO :1970 Visit Date:04/02/2025 Inpatient Discharge Instructions Your Care Team Admitting Physician - Rambo Purcell MD Referring Physician - Rambo Purcell MD Reason for Your Visit LOWER ABDOMINAL PAIN, DSYPHAGIA, GLOBUS SENATION, BARRETTS ESOPHAGUS, EARLY SATIETY Your Diagnosis Change in bowel habits Dysphagia Tests Performed Pathology Tissue Exam -- Results Pending -- Please visit your patient portal for your results or contact your primary care physician. This Is Your Medications List acarbose (acarbose 25 mg oral tablet) acetaminophen (Tylenol 325 mg Tab) aspirin (aspirin 81 mg Oral EC Tab) cyanocobalamin (cyanocobalamin 1000 mcg Tab) dicyclomine (Bentyl 10 mg Cap) estradiol topical (Estrace 0.1 mg/g Cream) levetiracetam (Keppra 500 mg Tab) lisinopril (lisinopril 40 mg Tab) metoclopramide (metoclopramide 5 mg Tab) metoprolol (metoprolol succinate 50 mg ER Tab) multivitamin (Multi Vitamins oral tablet) ondansetron (ondansetron 4 mg Dis Tab) pantoprazole (Pantoprazole [address] Tab) peppermint oil (Ibgard 90 mg oral delayed release capsule) psyllium (Metamucil 3.4 g/5.2 g oral powder) sertraline (sertraline 50 mg Tab) sucralfate (sucralfate 1 g/10 mL Oral Susp 10 mL) Procedure History Esophagogastroduodenoscop y (01/11/2022), Esophagogastroduodenoscop y (05/13/2021), Esophagogastroduodenoscop y (09/30/2020), Colonoscopy (03/13/2020), Esophagogastroduodenoscop y (01/30/2020), Colonoscopy (05/17/2019), Esophagogastroduodenoscop y (05/17/2019), Hernia surgical mesh (03/02/2019), Cholecystectomy, Hernia repair, Hysterectomy. Discharge Vitals Temperature (Temporal Artery) 36.4 ???C Heart Rate (Monitored) 47 Respiratory Rate 17 Blood Pressure 135/84 Height 170 cm Weight 86.9 kg BMI 30.07 What to do next Instructions From Your Doctor Event Name Event Result Discharge Activity Resume normal activities in 24 hours Discharge Diet(s) Other: per egd note Call Your Doctor For Persistent or heavy bleeding Discharge Instructions Discharge Instructions Previously Scheduled Follow-Up Appointments Tuesday 11:30 AM EDT With: SUYAPA BAKER, Flavio Hairston Where: [facility] [address] [place] [address] [place] [address]- Tuesday 9:00 AM EDT With: Where: FT General Diagnostic New Follow Up Appointments after Discharge Follow Up with Binh BAKER, Rambo Dietrich [facility] When: Comments: Call for followup appointment to review any pending pathology/biopsy results Call for any problems. Where: [address] [place] [address], [address] [address] [phone] Medications What How Much When Why Instructions Next Dose Unchanged acarbose (acarbose 25 mg oral tablet) 1 Tablets By Mouth Every day Unchanged acetaminophen (Tylenol 325 mg Tab) 1 Tablets By Mouth Every 4 hours as needed for Pain Abdominal pain Unchanged aspirin (aspirin 81 mg Oral EC Tab) 1 Tablets By Mouth Every day Unchanged cyanocobalamin (cyanocobalamin 1000 mcg Tab) 1 Tablets By Mouth Every day Unchanged dicyclomine (Bentyl 10 mg Cap) 1 Capsules By Mouth 4 times a day Lower abdominal pain Dysphagia Globus sensation Pearce esophagus Duration: 14 Days Unchanged estradiol topical (Estrace 0.1 mg/ g Cream) 1 Gram Vaginal As Directed Recurrent UTI Apply pea-sized amount around urethra every night x 3 weeks, then 2 times weekly for maintenance Unchanged levetiracetam (Keppra 500 mg Tab) 1 Tablets By Mouth 2 times a day Unchanged lisinopril (lisinopril 40 mg Tab) 1 Tablets By Mouth Every day Unchanged metoclopramide (metoclopramide 5 mg Tab) 120 EA, 0 Refill(s), TAKE 1 TABLET BY MOUTH BEFORE MEALS AND AT BEDTIME Unchanged metoprolol (metoprolol succinate 50 mg ER Tab) 1 Tablets By Mouth Every day Unchanged multivitamin (Multi Vitamins oral tablet) 1 Tablets By Mouth Every day Unchanged ondansetron (ondansetron 4 mg Dis Tab) Unchanged pantoprazole (Pantoprazole [address] Tab) 1 Tablets By Mouth Unchanged peppermint oil (Ibgard 90 mg oral delayed release capsule) 2 Capsules By Mouth 2 times a day Lower abdominal pain Dysphagia Globus sensation Pearce esophagus Unchanged psyllium (Metamucil 3.4 g/ 5.2 g oral powder) 3.4 Gram By Mouth 3 times a day as needed for for constipation Lower abdominal pain Dysphagia Globus sensation Pearce esophagus Change in bowel habits Unchanged sertraline (sertraline 50 mg Tab) 1 Tablets By Mouth Every day Unchanged sucralfate (sucralfate 1 g/ 10 mL Oral Susp 10 mL) 10 Milliliter By Mouth Four times a day (before meals and at bedtime) Test Results No qualifying data available. Allergies Flexeril (Swelling of throat) penicillin (Swelling) Problems Ongoing - Any problem that you are currently receiving treatment for. Acid reflux Arthritis Asymptomatic microsco (more content not included)... Normal [facility] Comment on above: Result Comment: Elec tronically Signed By: Jaime PERRY, Yoanna\.br\Date and Time Signed: 04/02/25 13:52 EDT Main OR PACU I Recordon 03-06 Main OR PACU I Record Main OR PACU I Rec ord PACU Phase I Document Type FT Summary Primary Physician: Rambo Purcell MD Finalized Date/Time: 04/02/25 15:07:37 Pt. Name: ARIELLE CARDOSOROBLES Kirby/Sex: 1970 Female Med Rec #: [id number] Physician: Rambo Purcell MD Financial #: [id number] Pt. Type: O Room/Bed: / Admit/Disch: 04/02/25 11:14:25 - Institution: Case Times PACU I FT Pre-Care Text: Identifies barriers to communication and implements measures to provide psychological support Develops individualized plan of care, and ensures continuity of care Maintains patient's dignity and privacy, and maintains patient confidentiality Identifies and reports philosophical, cultural, and spiritual beliefs and values Identifies individual values and wishes concerning care Implements aseptic technique, and administers prescribed antibiotic therapy and immunizing agents as ordered Evaluates postoperative tissue perfusion Implements thermoregulation measures, and monitors body temperature Evaluates postoperative respiratory status Evaluates postoperative cardiac status Evaluates postoperative neurological status Assesses pain control, collaborated in initiating patient-controlled analgesia and implements alternative methods of pain control Verifies allergies, administers prescribed medications and solutions, evaluates response to medications Entry 1 In PACU I 04/02/25 13:16:00 Discharge from PACU 04/02/25 14:05:00 I Outcomes Met? Yes Last Modified By: Yoanna Sandoval RN 04/02/25 15:07:26 Post-Care Text: The patient demonstrates knowledge of the expected response to the operative or invasive procedure The patient's care is consistent with the individualized perioperative plan of care The patient's right to privacy is maintained The patient's value system, lifestyle, ethnicity, and culture are considered, respected, and incorporated into the perioperative plan of care The patient participates in decisions affecting his or her perioperative plan of care The patient is free from signs and symptoms of infection The patient has wound/tissue perfusion consistent with or improved from baseline levels established preoperatively The patient is at or returning to normothermia at the conclusion of the immediate postoperative period The patient's respiratory function is consistent with or improved from baseline levels established preoperatively The patient's cardiovascular status is consistent with or improved from baseline levels established preoperatively The patient's cardiovascular status is consistent with or improved from baseline levels established preoperatively The patient demonstrates and/or reports adequate pain control throughout the perioperative period The patient received appropriate medication(s), safely administered during the perioperative period Acuity Level PACU I FT Entry 1 Start Time 04/02/25 13:16:00 Stop Time 04/02/25 14:05:00 Acuity Level Acuity Level I Last Modified By: Yoanna Sandoval RN 04/02/25 15:07:32 Finalized By: Yoanna Sandoval RN Document Signatures Signed By: Yoanna Sandoval RN 04/02/25 15:07 Normal [facility] Main OR Preoperative Recordo n 04-02-2025 Main OR Preoperative Record Main OR Preoperative Record Holding Area Document Type FT Summary Primary Physician: Rambo Purcell MD Finalized Date/Time: 04/02/25 12:05:50 Pt. Name: CONSTANTINO CARDOSO/Sex: 1970 Female Med Rec #: [id number] Physician: Rambo Purcell MD Financial #: [id number] Pt. Type: O Room/Bed: / Admit/Disch: 04/02/25 11:14:25 - Institution: Case Times Holding FT Pre-Care Text: Verifies consent for planned procedure, identifies individual values and wishes concerning care, includes family members in perioperative teaching Secures patient's records' belongings, and valuables, maintains patient's dignity and privacy, and maintains patient confidentiality Entry 1 In Holding 04/02/25 12:00:00 Outcomes Met? Yes Last Modified By: Sunny Olmedo RN 04/02/25 12:03:19 Post-Care Text: The patient participates in decisions affecting his or her perioperative plan of care The patient's right to privacy is maintained Surgery Checklist FT Entry 1 Patient Birthday, ID Band Procedure History and Physical, Identification: Check, Patient Verification: Surgical Consent, With Participation Patient NPO after Midnight: No Date/Time: 04/02/25 07:15:00 Results Reviewed clear-yellow liquid Personal Items clothing, shoes Comments: bowel results Comment: Limitations: none Complaints of Pain: Yes Pain Comment: abdominal pain 11/12 Operative Site n/a Marking: Marked By: n/a Location: n/a Availability Equipment Verified: Does Patient Smoke No Patient states Yes Comment - Adult - aimee postop adult Supervision supervision available Case Cancelled in No Holding Area see comments below for reason Last Modified By: Sunny Olmedo RN 04/02/25 12:05:48 General Comments: pt finished bowel prep at 0715, per patient nothing to eat or drink since MSRN Nulytely bowel prep MSRN Finalized By: Sunny Olmedo RN Document Signatures Signed By: Sunny Olmedo RN 04/02/25 12:05 Normal [facility] Ambulatory Visit Summaryon 0 03-27-2025 Ambulatory Visit Summary Ambulatory Visit Summary ARIELLE CARDOSOROBLES Hairston :1970 Visit Date:03/27/2025 Ambulatory Visit Instructions Your Diagnosis Lower abdominal pain Dysphagia Globus sensation Pearce esophagus Change in bowel habits Early satiety Your Care Team Attending Physician - Binh BAKER, Rambo Dietrich Primary Care Physician - JUDI YOUSSEF CNP This Is Your Medications List dicyclomine (Bentyl 10 mg Cap) peppermint oil (Ibgard 90 mg oral delayed release capsule) polyethylene glycol 3350 with electrolytes (NuLYTELY Riley oral powder for reconstitution) psyllium (Metamucil 3.4 g/5.2 g oral powder) Contact prescribing physician if questions or concerns acarbose (acarbose 25 mg oral tablet) acetaminophen (Tylenol 325 mg Tab) aspirin (aspirin 81 mg Oral EC Tab) cyanocobalamin (cyanocobalamin 1000 mcg Tab) estradiol topical (Estrace 0.1 mg/g Cream) levetiracetam (Keppra 500 mg Tab) lisinopril (lisinopril 40 mg Tab) metoclopramide (metoclopramide 5 mg Tab) metoprolol (metoprolol succinate 50 mg ER Tab) multivitamin (Multi Vitamins oral tablet) ondansetron (ondansetron 4 mg Dis Tab) pantoprazole (Pantoprazole [address] Tab) sertraline (sertraline 50 mg Tab) Procedures Performed Esophagogastroduodenoscop y (01/11/2022), Esophagogastroduodenoscop y (05/13/2021), Esophagogastroduodenoscop y (09/30/2020), Colonoscopy (03/13/2020), Esophagogastroduodenoscop y (01/30/2020), Colonoscopy (05/17/2019), Esophagogastroduodenoscop y (05/17/2019), Hernia surgical mesh (03/02/2019), Cholecystectomy, Hernia repair, Hysterectomy. Discharge Vitals Heart Rate (Peripheral) 48 Blood Pressure 124/85 Height 170 cm Height 67 in Weight 86.9 kg Weight 191.581 lb BMI 30.07 What to do next You Need to Complete the Following Celiac Disease Comprehensive, Blood, Routine collect, 03/27/25, Order for future visit, Lab Collect, Lower abdominal pain Dysphagia Globus sensation Pearce esophagus Change in bowel habits, Print Label By Order Location XR Adult Swallowing Function w/ Video: Evaluate Pt, Develop a Plan of Care & Implement Plan, 03/27/25, Routine, Order for future visit, Transport Mode: Ambulatory, Reason: Dysphagia, No, Lower abdominal pain Dysphagia Globus sensation Pearce esophagus, 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, pp_set_radiology_subspeci alty, Junior - [facility] Medications What How Much When Why Instructions New dicyclomine (Bentyl 10 mg Cap) 1 Capsules By Mouth 4 times a day Lower abdominal pain Dysphagia Globus sensation Pearce esophagus Duration: 14 Days Pickup at [facility]/pharmacy #6177 New peppermint oil (Ibgard 90 mg oral delayed release capsule) 2 Capsules By Mouth 2 times a day Lower abdominal pain Dysphagia Globus sensation Pearce esophagus Refills: 3 Pickup at [facility]/pharmacy #[id number] New polyethylene glycol 3350 with electrolytes (NuLYTELY Riley oral powder for reconstitution) See instructions Lower abdominal pain Dysphagia Globus sensation Pearce esophagus Change in bowel habits follow up physicians insctructions Pickup at [facility]/pharmacy #6177 New psyllium (Metamucil 3.4 g/ 5.2 g oral powder) 3.4 Gram By Mouth 3 times a day as needed for for constipation Lower abdominal pain Dysphagia Globus sensation Pearce esophagus Change in bowel habits Pickup at [facility]/pharmacy #6177 Unchanged acarbose (acarbose 25 mg oral tablet) 1 Tablets By Mouth Every day Contact prescribing physician if questions or concerns Unchanged acetaminophen (Tylenol 325 mg Tab) 1 Tablets By Mouth Every 4 hours as needed for Pain Abdominal pain Contact prescribing physician if questions or concerns Unchanged aspirin (aspirin 81 mg Oral EC Tab) 1 Tablets By Mouth Every day Contact prescribing physician if questions or concerns Unchanged cyanocobalamin (cyanocobalamin 1000 mcg Tab) 1 Tablets By Mouth Every day Contact prescribing physician if questions or concerns Unchanged estradiol topical (Estrace 0.1 mg/ g Cream) 1 Gram Vaginal As Directed Recurrent UTI Apply pea-sized amount around urethra every night x 3 weeks, then 2 times weekly for maintenance Contact prescribing physician if questions or concerns Unchanged levetiracetam (Keppra 500 mg Tab) 1 Tablets By Mouth 2 times a day Contact prescribing physician if questions or concerns Unchanged lisinopril (lisinopril 40 mg Tab) Contact prescribing physician if questions or concerns Unchanged metoclopramide (metoclopramide 5 mg Tab) 120 EA, 0 Refill(s), TAKE 1 TABLET BY MOUTH BEFORE MEALS AND AT BEDTIME Contact prescribing physician if questions or concerns Unchanged metoprolol (metoprolol succinate 50 mg ER Tab) 1 Tablets By Mouth Every day Contact prescribing physician if questions or concerns Unchanged multivitamin (Multi Vitamins oral tablet) 1 Tablets By Mouth Every day Contact prescribing physician if questions or concerns Unchanged ondansetron (ondansetron 4 mg Dis Tab) Contact prescribing physician if questions or concerns Unchanged pantopraz (more content not included)... Normal Junior [facility] Gastroenterology Office/Clin ic Noteon 03-27-2025 Gastroenterology Office/Clinic Note Gastroenterology Office/Clinic Note Chief Complaint Abdominal pain and dysphagia HPI Staff New patient is a(n) 54 year old female who was referred by Beth Youssef CNP for abdominal pain. Pt already scheduled for scopes with another GI practice on 04/01/25 but is requesting second opinion per PCP note. C/o difficulty swallowing. Feels like her throat is swollen and has feeling of something stuck in throat. Food and liquids Abdominal pain: When did you first have this pain: Months and worsening Quality (sharp, dull): sharp Constant or comes or go: constant location and radiation: lower abdomen Relation to food: no Any blood thinners? aspirin 81mg daily Any GLP-1 agonists? no CT 12/18/24 @ [facility]: Impression: Minimal pericardial and pleural effusion. Minor atelectasis or scarring and punctate left lower lobe nodule. Recurrent small hiatal hernia. No bowel or urinary tract obstruction. No other acute findings. CT 03/14/25 @ [facility]: Impression: Negative acute inflammatory process or bowel obstruction. 2.5 cm ovoid lesion involving the right kidney, indeterminate based on current examination. Consider dedicated renal mass protocol CT or MRI Laboratory Results CBC CMP PT PTT Basophil Absolute: 0 E9/L (02/16/25) A/G Ratio: 1.7 (02/16/25) INR: 0.96 (10/19/24) PTT: 40.8 second(s) High (10/19/24) Basophil Auto: 0.6 % (02/16/25) AGAP: 10 mEq/L (02/16/25) PT: 10.7 second(s) (10/19/24) Eos Absolute: 0.3 E9/L (02/16/25) Albumin Lvl: 4.3 gm/dL (02/16/25) Eos Auto: 5.2 % (02/16/25) Alk Phos: 121 Int._Unit/L High (02/16/25) Hct: 37.7 % (02/16/25) ALT: 12 Int._Unit/L (02/16/25) HGB: 12.6 gm/dL (02/16/25) AST: 14 Int._Unit/L (02/16/25) Lymph Absolute: 1.7 E9/L (02/16/25) Bili Total: 0.3 mg/dL (02/16/25) Lymph Auto: 26 % (02/16/25) BUN: 21 mg/dL (02/16/25) MCH: 29 pg (02/16/25) BUN/Creat Ratio: 18 (02/16/25) MCHC: 33.5 gm/dL (02/16/25) Calcium Lvl: 9.3 mg/dL (02/16/25) MCV: 86.7 fL (02/16/25) Chloride: 107 mmol/L (02/16/25) Mchenry Absolute: 0.5 E9/L (02/16/25) CO2: 26 mmol/L (02/16/25) Mchenry Auto: 7.5 % (02/16/25) Creatinine: 1.2 mg/dL (02/16/25) MPV: 7.4 fL (02/16/25) Globulin: 2.6 gm/dL (02/16/25) Neutro Absolute: 3.9 E9/L (02/16/25) Glucose Lvl: 114 mg/dL (02/16/25) Neutro Auto: 60.7 % (02/16/25) Potassium Lvl: 4.1 mmol/L (02/16/25) Platelet: 357 E9/L (02/16/25) Sodium Lvl: 139 mmol/L (02/16/25) RBC: 4.3 E12/L (02/16/25) Total Protein: 6.9 gm/dL (02/16/25) RDW: 13.5 % (02/16/25) WBC: 6.5 E9/L (02/16/25) History of Present Illness Reviewed HPI collected by staff Review of Systems PHQ Score Initial Depression Screen Score: 0 SCORE All systems reviewed, negative; Except for above Physical Exam Vitals & Measurements HR: 48(Peripheral) BP: 124/85 HT: 170 cm HT: 67 in WT: 86.9 kg WT: 191.581 lb BMI: 30.07 No acute distress Procedure Colonoscopy 03/13/2020 w/Dr. Forbes: Impression: 1. Normal terminal ileum. 2. Normal colonoscopy except for small nonbleeding internal hemorrhoids Recommendations: Repeat colonoscopy:: In 10 years. EGD 01/11/22 w/Dr. Forbes: Impression and Plan 1. 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 Normal gastric mucosa, random biopsies obtained to rule out H. pylori 3. Small residual semisolid food in the stomach, improved significantly compared with last EGD Recommendations: 1. Awaiting pathology report. 2. GI clinic follow-up in 2 weeks 3. Omeprazole 20 mg p.o. daily, continue indefinitely given her Pearce's esophagus 4. Repeat EGD in 3 years as a surveillance for Pearce's esophagus 5. Continue with low residual diet 6. Stop Reglan after 4 weeks Pathology: Diagnosis Comment (Verified) B. No H. pylori microorganisms identified with immunostain. Final Diagnosis (Verified) A: PEARCE'S ESOPHAGUS, BIOPSY: ??? SQUAMOUS COLUMNAR CELL MUCOSAL JUNCTION WITH MILD TO MODERATE LYMPHOPLASMACYTIC INFLAMMATION IN LAMINA PROPRIA AND HYPERPLASTIC CHANGES. ??? NO INTESTINAL METAPLASIA IDENTIFIED. B: STOMACH, BIOPSY: ??? ANTRAL MUCOSA WITH MILD CHRONIC NONSPECIFIC GASTRITIS. ??? NO INTESTINAL METAPLASIA IDENTIFIED. Assessment/Plan 1. 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 Biopsy inconclusive for Barretts. CT 03/14/25 @ [facility]: Negative acute inflammatory process or bowel obstruction. 2.5 cm ovoid lesion involving the right kidney, indeterminate based on current examination. Consider dedicated renal mass protocol CT or MRI - IBGard and Bentyl prescribed - Schedule EGD with possible dilation to evaluate. Discussed risks such as bleeding, injury and perforation as well as benefits. (more content not included)... Normal [facility] Comment on above: Result Comment: Elec tronically Signed By: Carlota Berg MA\.br\Date and Time Signed: 03/27/25 10:53 EDT\.br\Electronically Co-Signed By: Binh BAKER, Rambo Dietrich\.br\Date and Time Co-Signed: 03/27/25 16:30 EDT Alanine aminotransferase [En zymatic activity/volume] in Serum or PlasmaOrdered By: Kailey Mosley on 03-12-2025 ALT [Catalytic activity/Vol] 14 U/L Normal 7-52 [facility] Comment on above: Performed By: #### L IPASE, PT, PTT, CBC, BNP, CK, HS TROP, HEPATIC, BMP #### [facility] [address] [place] [address] [place] Albumin [Mass/volume] in Ser um or Plasma by Bromocresol green (BCG) dye binding methoOrdered By: Kailey Mosley on 03-12-2025 Albumin BCG dye [Mass/Vol] 4.3 g/dL 3.5-5.7 [facility] Alkaline phosphatase [Enzyma tic activity/volume] in Serum or PlasmaOrdered By: Kailey Mosley on 03-12-2025 ALP [Catalytic activity/Vol] 135 U/L High 34-104 [facility] Comment on above: Performed By: #### L IPASE, PT, PTT, CBC, BNP, CK, HS TROP, HEPATIC, BMP #### [facility] [address] [place] [address] Appearance of UrineOrdered B y: Kailey Mosley on 03-12-2025 Appearance (U) Clear Normal Clear [facility] Comment on above: Order Comment: Name Collection Type:: Clean-Voided Midstream Performed By: #### A COLEMAN REIDU ####[facility] Aspartate aminotransferase [ Enzymatic activity/volume] in Serum or PlasmaOrdered By: Kailey Mosley on 03-12-2025 AST [Catalytic activity/Vol] 18 U/L Normal 13-39 [facility] Comment on above: Performed By: #### L IPASE, PT, PTT, CBC, BNP, CK, HS TROP, HEPATIC, BMP #### [facility] [address] [place] [address] BNP ser/plasOrdered By: Sherine Mosley on 03-12-2025 Natriuretic peptide B (Bld) [Mass/Vol] 22.0 pg/mL Normal 5-100 [facility] Comment on above: Result Comment: PERF ORMED BY: [place] [address] PATHOLOGIST VIBRATION ANALYST DARCI CMGHEE M.D. Performed By: #### L IPASE, PT, PTT, CBC, BNP, CK, HS TROP, HEPATIC, BMP #### [address] Bacteria [Presence] in Urine by AutomatedOrdered By: Kailey Mosley on 03-12-2025 Bacteria Auto Ql (U) None seen [HPF] None Seen [facility] Basic Metabolic Panelon Creatinine Clr Calc Pharmacy 82.08 Normal [facility] Comment on above: Performed By: #### L IPASE, PT, PTT, CBC, BNP, CK, HS TROP, HEPATIC, BMP #### [place] [address] [place] GFR/1.73 sq M.predicted MDRD (S/P/Bld) [Vol rate/Area] mL/min/{1.73_m2} Normal [facility] Comment on above: Performed By: #### L IPASE, PT, PTT, CBC, BNP, CK, HS TROP, HEPATIC, BMP #### [place] [address] [place] Basophils [#/volume] in Bloo d by Automated countOrdered By: Kailey Mosley on 03-12-2025 Basophils (Bld) [#/Vol] 0.0 10*3/uL Normal 0.0-0.2 [facility] Comment on above: Result Comment: PERF ORMED BY: [place] [address] PATHOLOGIST VIBRATION ANALYST DARCI MCGHEE M.D. Performed By: #### L IPASE, PT, PTT, CBC, BNP, CK, HS TROP, HEPATIC, BMP #### [place] [address] [place] Basophils/100 leukocytes in Blood by Automated countOrdered By: Kailey Mosley on 03-12-2025 Basophils/100 WBC (Bld) 0.7 % Normal . [facility] Comment on above: Performed By: #### L IPASE, PT, PTT, CBC, BNP, CK, HS TROP, HEPATIC, BMP #### [facility] [address] [place] [address] Bilirubin Test strip Ql (U)O rdered By: Kailey Mosley on 03-12-2025 Bilirubin Ql (U) Negative Negative [facility] Bilirubin.direct [Mass/volum e] in Serum or PlasmaOrdered By: Kailey Mosley on 03-12-2025 Bilirubin.direct [Mass/Vol] 0.00 mg/dL Low 0.03-0.18 [facility] Comment on above: If the DBIL is less than 0.1, IBIL is not able to becalculated. Bilirubin.total [Mass/volume ] in Serum or PlasmaOrdered By: Kailey Mosley on 03-12-2025 Bilirubin [Mass/Vol] 0.3 mg/dL Normal 0.3-1.0 [facility] Comment on above: Performed By: #### L IPASE, PT, PTT, CBC, BNP, CK, HS TROP, HEPATIC, BMP #### [facility] [address] [place] [address] CT abdomen pelvis w conon CT abdomen pelvis w con [facility] [place] [address] CT Scan Report Signed Patient: Constantino Cardoso MR#: [id number] : 1970 Acct:[id number] Age/Sex: 54 / F ADM Date: 03/12/25 Loc: ER Room: Type: [facility] ER Attending Dr: Copies to: Kailey Mosley APRN Ordering Provider: Kailey Mosley APRN Date of [...] Pelvis:[Bladder unremarkable. Uterus absent. No adnexal mass.] Peritoneum/Retroperitoneu m:No free air or free fluid. Aorta unremarkable [...] Casey M.D. 03/12/2025 10:20 PM Dictation Location: [place] [address] Transcribed By: [facility] 03/12/252219 Dictated By: Surendra Casey MD 03/12/252213 Signed By: 03/12/252219 Normal [facility] CT angio chest PE protocolon 03-12-2025 CT angio chest PE protocol [facility] [place] [address] CT Scan Report Signed Patient: Constantino Cardoso MR#: [id number] : 1970 Acct:[id number] Age/Sex: 54 / F ADM Date: 03/12/25 Loc: ER Room: Type: [facility] ER Attending Dr: Copies to: Kailey Mosley APRN Ordering Provider: Kailey Mosley APRN Date of [...] Casey M.D. 03/12/2025 10:12 PM Dictation Location: [place] [address] Transcribed By: [facility] 03/12/252211 Dictated By: Surendra Casey MD 03/12/252199 Signed By: 03/12/252211 Normal [facility] Calcium [Mass/volume] in Ser um or PlasmaOrdered By: Kailey Mosley on 03-12-2025 Calcium [Mass/Vol] 9.6 mg/dL Normal 8.6-10.3 [facility] Comment on above: Performed By: #### L IPASE, PT, PTT, CBC, BNP, CK, HS TROP, HEPATIC, BMP #### [address] Carbon dioxide, total [Moles /volume] in Serum or PlasmaOrdered By: Kailey Mosley on 03-12-2025 CO2 [Moles/Vol] 26.2 mmol/L Normal 21.0-31.0 [facility] Comment on above: Performed By: #### L IPASE, PT, PTT, CBC, BNP, CK, HS TROP, HEPATIC, BMP #### [address] Chloride [Moles/volume] in S cristine or PlasmaOrdered By: Kailey Mosley on 03-12-2025 Chloride [Moles/Vol] 108 mmol/L High 98-107 [facility] Comment on above: Performed By: #### L IPASE, PT, PTT, CBC, BNP, CK, HS TROP, HEPATIC, BMP #### [address] Color of Urine by AutoOrdere d By: Kailey Mosley on 03-12-2025 Color (U) Light-yellow Normal Yellow [facility] Comment on above: Order Comment: Name Collection Type:: Clean-Voided Midstream Performed By: #### A DDONUAPLUS, CUU ####[address] Complete Blood Count Auto Di ffon 03-12-2025 Mean Corpuscular HGB Conc 33.4 g/dL Normal 32.0-35.0 [facility] Comment on above: Performed By: #### L IPASE, PT, PTT, CBC, BNP, CK, HS TROP, HEPATIC, BMP #### [address] Monocytes/100 WBC (Bld) 17.34 % Normal 0.00-20.00 [facility] Comment on above: Performed By: #### L IPASE, PT, PTT, CBC, BNP, CK, HS TROP, HEPATIC, BMP #### [address] NRBC% 0.1 /100{WBC} Normal 0-0.5 [facility] Comment on above: Performed By: #### L IPASE, PT, PTT, CBC, BNP, CK, HS TROP, HEPATIC, BMP #### [address] White Blood Count 6.7 [CFU]/mL Normal 3.8-11.6 [facility] Comment on above: Performed By: #### L IPASE, PT, PTT, CBC, BNP, CK, HS TROP, HEPATIC, BMP #### [facility] [address] [place] [address] [place] Creatine kinase [Enzymatic a ctivity/volume] in Serum or PlasmaOrdered By: Kailey Mosley on 03-12-2025 CK [Catalytic activity/Vol] 109 U/L Normal 30-223 [facility] Comment on above: Performed By: #### L IPASE, PT, PTT, CBC, BNP, CK, HS TROP, HEPATIC, BMP #### [facility] [address] Creatinine [Mass/volume] in Serum or PlasmaOrdered By: Kailey Mosley on 03-12-2025 Creatinine [Mass/Vol] 0.88 mg/dL Normal 0.60-1.20 [facility] Comment on above: Performed By: #### L IPASE, PT, PTT, CBC, BNP, CK, HS TROP, HEPATIC, BMP #### [facility] [address] [place] [address] [place] Dipstick and Microscopicon 0 03-12-2025 Bacteria,Urine None Seen Normal None Seen [facility] Comment on above: Order Comment: Name Collection Type:: Clean-Voided Midstream Performed By: #### A DDONUAPLUS, CUU ####[place] [address] [address] Bilirubin,Urine Negative Normal Negative [facility] Comment on above: Order Comment: Name Collection Type:: Clean-Voided Midstream Performed By: #### A DDONUAPLUS, CUU ####[address] Glucose Ql (U) Normal Normal Normal [facility] Comment on above: Order Comment: Name Collection Type:: Clean-Voided Midstream Performed By: #### A DDONUAPLUS, CUU ####[place] [address] [place] [address] [facility] Hyaline Casts,Urine None Normal 0-8 [facility] Comment on above: Order Comment: Name Collection Type:: Clean-Voided Midstream Performed By: #### A DDONUAPLUS, CUU ####[place] [id number] [facility] Mucus,Urine Rare Normal [facility] Comment on above: Order Comment: Name Collection Type:: Clean-Voided Midstream Result Comment: PERF ORMED BY: [facility] [address] [place] [address] PATHOLOGIST VIBRATION ANALYST DARCI MCGHEE M.D. Performed By: #### A DDONUAPLUS, CUU ####[place] [id number] [facility] Nitrite,Urine Negative Normal Negative [facility] Comment on above: Order Comment: Name Collection Type:: Clean-Voided Midstream Performed By: #### A DDONUAPLUS, CUU ####[place] [id number] [facility] Occult Blood,Urine Negative Normal Negative [facility] Comment on above: Order Comment: Name Collection Type:: Clean-Voided Midstream Result Comment: PERF ORMED BY: [facility] [address] [place] [address] PATHOLOGIST VIBRATION ANALYST DARCI MCGHEE M.D. Performed By: #### A DDONUAPLUS, CUU ####[place] [id number] [facility] Protein,Urine Negative Normal Negative [facility] Comment on above: Order Comment: Name Collection Type:: Clean-Voided Midstream Performed By: #### A DDONUAPLUS, CUU ####[place] [id number] [facility] RBC,Urine 3-4 Normal 0-4 [facility] Comment on above: Order Comment: Name Collection Type:: Clean-Voided Midstream Performed By: #### A DDONUAPLUS, CUU ####[place] [id number] [facility] Specificy Biddle,Urine 1.032 High 1.001-1.030 [facility] Comment on above: Order Comment: Name Collection Type:: Clean-Voided Midstream Performed By: #### A DDONUAPLUS, CUU ####[facility] Squamous Epithelial Cell,Urine 1-2 Normal 0-2 [facility] Comment on above: Order Comment: Name Collection Type:: Clean-Voided Midstream Performed By: #### A DDONUAPLUS, CUU ####[place] [address] [address] Urobilinogen,Urine Normal Normal Normal [facility] Comment on above: Order Comment: Name Collection Type:: Clean-Voided Midstream Performed By: #### A DDONUAPLUS, CUU ####[address] WBC,Urine 5-9 Normal 0-4 [facility] Comment on above: Order Comment: Name Collection Type:: Clean-Voided Midstream Performed By: #### A DDONUAPLUS, CUU ####[address] Eosinophils [#/volume] in Bl ood by Automated countOrdered By: Kailey Mosley on 03-12-2025 Eosinophils (Bld) [#/Vol] 0.2 10*3/uL Normal 0.0-0.45 [facility] Comment on above: Performed By: #### L IPASE, PT, PTT, CBC, BNP, CK, HS TROP, HEPATIC, BMP #### [place] [address] [place] Eosinophils/100 leukocytes i n Blood by Automated countOrdered By: Kailey Mosley on 03-12-2025 Eosinophils/100 WBC (Bld) 3.7 % Normal . [facility] Comment on above: Performed By: #### L IPASE, PT, PTT, CBC, BNP, CK, HS TROP, HEPATIC, BMP #### [facility] [address] [place] [address] [place] Epithelial cells.squamous [# /area] in Urine sediment by Automated countOrdered By: Kailey Mosley on 03-12-2025 Epithelial cells.squamous Auto (Urine sed) [#/Area] 1-2 [HPF] 0-2 [facility] Erythrocyte distribution wid th [Ratio] by Automated countOrdered By: Kailey Mosley on 03-12-2025 Erythrocyte distribution width (RBC) [Ratio] 14.4 % Normal 11.9-15.3 [facility] Comment on above: Performed By: #### L IPASE, PT, PTT, CBC, BNP, CK, HS TROP, HEPATIC, BMP #### [facility] [address] Erythrocytes [#/area] in Uri ne sediment by Automated countOrdered By: Kailey Mosley on 03-12-2025 RBC Auto (Urine sed) [#/Area] 3-4 [HPF] 0-4 [facility] Erythrocytes [#/volume] in B lood by Automated countOrdered By: Kailey Mosley on 03-12-2025 RBC (Bld) [#/Vol] 4.14 10*6/uL Normal 3.60-5.00 [facility] Comment on above: Performed By: #### L IPASE, PT, PTT, CBC, BNP, CK, HS TROP, HEPATIC, BMP #### [facility] [address] [place] [id number] [facility] Glucose [Mass/volume] in Ser um or PlasmaOrdered By: Kailey Mosley on 03-12-2025 Glucose [Mass/Vol] 77 mg/dL Normal 70-100 [facility] Comment on above: ADA recommended refe rence rangeRandom Glucose Reference Range is dependent on time and content of last meal. Glucose of more than 200 mg/dL in a nonstressed, ambulatory subject supports the diagnosis of Diabetes Mellitus. Result Comment: [place] om Glucose Reference Range is dependent on time and content of last meal. Glucose of more than 200 mg/dL in a nonstressed, ambulatory subject supports the diagnosis of Diabetes Mellitus. ADA recommended reference range Performed By: #### L IPASE, PT, PTT, CBC, BNP, CK, HS TROP, HEPATIC, BMP #### [facility] [address] Glucose [Mass/volume] in Uri ne by Test stripOrdered By: Kailey Mosley on 03-12-2025 Glucose Test strip (U) [Mass/Vol] Normal mg/dL Normal [facility] Hematocrit [Volume Fraction] of Blood by Automated countOrdered By: Kailey Mosley on 03-12-2025 Hematocrit (Bld) [Volume fraction] 36.5 % Normal 34.0-46.4 [facility] Comment on above: Performed By: #### L IPASE, PT, PTT, CBC, BNP, CK, HS TROP, HEPATIC, BMP #### [address] Hemoglobin Test strip Ql (U) Ordered By: Kailey Mosley on 03-12-2025 Hemoglobin Ql (U) Negative Negative [facility] Hemoglobin [Mass/volume] in BloodOrdered By: Kailey Mosley on 03-12-2025 Hemoglobin (Bld) [Mass/Vol] 12.2 g/dL Normal 11.8-15.4 [facility] Comment on above: Performed By: #### L IPASE, PT, PTT, CBC, BNP, CK, HS TROP, HEPATIC, BMP #### [address] Hepatic Panelon 03-12-2025 Albumin [Mass/Vol] 4.3 g/dL Normal 3.5-5.7 [facility] Comment on above: Performed By: #### L IPASE, PT, PTT, CBC, BNP, CK, HS TROP, HEPATIC, BMP #### [address] Bilirubin,Indirect 0.3 mg/dL Normal [facility] Comment on above: Performed By: #### L IPASE, PT, PTT, CBC, BNP, CK, HS TROP, HEPATIC, BMP #### [address] Bilirubin.indirect [Mass/Vol] 0.00 mg/dL Low 0.03-0.18 [facility] Comment on above: Result Comment: If t he DBIL is less than 0.1, IBIL is not able to be calculated. Performed By: #### L IPASE, PT, PTT, CBC, BNP, CK, HS TROP, HEPATIC, BMP #### [facility] [address] [place] [address] [place] Hyaline casts [#/area] in Ur ine sediment by Automated countOrdered By: Kailey Mosley on 03-12-2025 Hyaline casts Auto (Urine sed) [#/Area] None [LPF] 0-8 [facility] INR in Platelet poor plasma by Coagulation assayOrdered By: Kailey Mosley on 03-12-2025 INR Coag (PPP) [Relative time] 1.0 {INR} Normal [facility] Comment on above: INR Therapeutic Rang [...] with mechanical heart valves: 3 - 4.5 Result Comment: INR Therapeutic Range A) Pre- [...] valves: 3 - 4.5 Performed By: #### L IPASE, PT, PTT, CBC, BNP, CK, HS TROP, HEPATIC, BMP ####[facility] [address] [place] [address] [place] Ketones [Presence] in Urine by Test stripOrdered By: Kailey Mosley on 03-12-2025 Ketones Ql (U) Negative Normal Negative [facility] Comment on above: Order Comment: Name Collection Type:: Clean-Voided Midstream Performed By: #### A DDONUAPLUS, CUU ####[facility] Leukocyte esterase [Presence ] in Urine by Test stripOrdered By: Kailey Mosley on 03-12-2025 Leukocyte esterase Test strip Ql (U) 3+ Normal Negative [facility] Comment on above: Order Comment: Name Collection Type:: Clean-Voided Midstream Performed By: #### A DDCOLEMAN LARSONU ####[facility] [address] [place] [address] [place] Leukocytes [#/area] in Urine sediment by Automated countOrdered By: Kailey Mosley on 03-12-2025 WBC Auto (Urine sed) [#/Area] 5-9 [HPF] High 0-4 [facility] Leukocytes [#/volume] correc jun for nucleated erythrocytes in Blood by Automated counOrdered By: Kailey Mosley on 03-12-2025 WBC corrected for nucl RBC Auto (Bld) [#/Vol] 6.7 10*3/uL 3.8-11.6 [facility] Leukocytes [#/volume] in Blo od by Automated countOrdered By: Kailey Mosley on 03-12-2025 WBC (Bld) [#/Vol] 6.7 10*3/uL Normal 3.8-11.6 [facility] Comment on above: Performed By: #### L IPASE, PT, PTT, CBC, BNP, CK, HS TROP, HEPATIC, BMP #### [facility] [address] [place] [address] [place] Lipase [Enzymatic activity/v olume] in Serum or PlasmaOrdered By: Kailey Mosley on 03-12-2025 Lipase [Catalytic activity/Vol] 38.0 U/L Normal 11.0-82.0 [facility] Comment on above: Result Comment: PERF ORMED BY: [facility] [address] [place] [address] PATHOLOGIST VIBRATION ANALYST DARCI MCGHEE M.D. Performed By: #### L IPASE, PT, PTT, CBC, BNP, CK, HS TROP, HEPATIC, BMP #### [facility] [address] [place] [address] [place] Lymphocytes [#/volume] in Bl ood by Automated countOrdered By: Kailey Mosley on 03-12-2025 Lymphocytes (Bld) [#/Vol] 1.9 10*3/uL Normal 1.00-4.8 [facility] Comment on above: Performed By: #### L IPASE, PT, PTT, CBC, BNP, CK, HS TROP, HEPATIC, BMP #### [facility] [address] Lymphocytes/100 leukocytes i n Blood by Automated countOrdered By: Kailey Mosley on 03-12-2025 Lymphocytes/100 WBC (Bld) 28.3 % Normal . [facility] Comment on above: Performed By: #### L IPASE, PT, PTT, CBC, BNP, CK, HS TROP, HEPATIC, BMP #### [address] MCH [Entitic mass] by Automa jun countOrdered By: Kailey Mosley on 03-12-2025 MCH (RBC) [Entitic mass] 29.5 pg Normal 24.7-34.3 [facility] Comment on above: Performed By: #### L IPASE, PT, PTT, CBC, BNP, CK, HS TROP, HEPATIC, BMP #### [facility] [address] [place] [address] MCHC Auto (RBC) [Mass/Vol]Or dered By: Kailey Mosley on 03-12-2025 MCHC (RBC) [Mass/Vol] 33.4 g/dL 32.0-35.0 [facility] MCV [Entitic volume] by Auto mated countOrdered By: Kailey Mosley on 03-12-2025 MCV (RBC) [Entitic vol] 88.3 fL Normal 80-100 [facility] Comment on above: Performed By: #### L IPASE, PT, PTT, CBC, BNP, CK, HS TROP, HEPATIC, BMP #### [place] [address] [place] Monocyte distribution width [Entitic volume] in Blood by AutomatedOrdered By: Kailey Mosley on 03-12-2025 Monocyte distribution width Auto (Bld) [Entitic vol] 17.34 % 0.00-20.00 [facility] Monocytes [#/volume] in Bloo d by Automated countOrdered By: Kailey Mosley on 03-12-2025 Monocytes (Bld) [#/Vol] 0.5 10*3/uL Normal 0.0-0.8 [facility] Comment on above: Performed By: #### L IPASE, PT, PTT, CBC, BNP, CK, HS TROP, HEPATIC, BMP #### [facility] [address] [place] [address] [place] Monocytes/100 leukocytes in Blood by Automated countOrdered By: Kailey Mosley on 03-12-2025 Monocytes/100 WBC (Bld) 7.8 % Normal . [facility] Comment on above: Performed By: #### L IPASE, PT, PTT, CBC, BNP, CK, HS TROP, HEPATIC, BMP #### [facility] [address] [place] [address] [place] Mucus [Presence] in Urine by AutomatedOrdered By: Kailey Mosley on 03-12-2025 Mucus Auto Ql (U) Rare [LPF] [facility] Neutrophils [#/volume] in Bl ood by Automated countOrdered By: Kailey Mosley on 03-12-2025 Neutrophils (Bld) [#/Vol] 4.0 10*3/uL Normal 1.8-7.7 [facility] Comment on above: Performed By: #### L IPASE, PT, PTT, CBC, BNP, CK, HS TROP, HEPATIC, BMP #### [facility] [address] [place] [address] [place] Neutrophils/100 leukocytes i n Blood by Automated countOrdered By: Kailey Mosley on 03-12-2025 Neutrophils/100 WBC (Bld) 59.5 % Normal . [facility] Comment on above: Performed By: #### L IPASE, PT, PTT, CBC, BNP, CK, HS TROP, HEPATIC, BMP #### [facility] [address] [place] [address] [place] Nitrite Test strip Ql (U)Ord ered By: Kailey Mosley on 03-12-2025 Nitrite Ql (U) Negative Negative [facility] No Panel InformationOrdered By: Kailey Mosley on 03-12-2025 Estimated GFR (CKD-EPI) > 60.0 mL/Min [facility] Creatinine Clearance (Chem 82.08 [facility] Nucleated erythrocytes [Pres ence] in Blood by Automated countOrdered By: Kailey Mosley on 03-12-2025 Nucleated RBC Auto Ql (Bld) 0.1 /100{WBC} 0-0.5 [facility] Partial Thromboplastin Timeo n 03-12-2025 aPTT Coag (Bld) [Time] 34.7 s Normal 25.1-36.5 [facility] Comment on above: Result Comment: A he matocrit value greater than 55% may lead to inaccurate results in coagulation testing. Patients having hematocrit values >55% require a special collection tube for coagulation studies. Please contact the laboratory at [phone] for redraw instructions. PERFORMED BY: [facility] [address] [place] [address] PATHOLOGIST VIBRATION ANALYST DARCI MCGHEE M.D. Performed By: #### L IPASE, PT, PTT, CBC, BNP, CK, HS TROP, HEPATIC, BMP ####[facility] [id number] Platelet mean volume [Entiti c volume] in Blood by Automated countOrdered By: Kailey Mosley on 03-12-2025 Platelet mean volume (Bld) [Entitic vol] 7.3 fL Normal 6.3-10.7 [facility] Comment on above: Performed By: #### L IPASE, PT, PTT, CBC, BNP, CK, HS TROP, HEPATIC, BMP #### [facility] [address] [place] [address] [place] Platelets [#/volume] in Bloo d by Automated countOrdered By: Kailey Mosley on 03-12-2025 Platelets (Bld) [#/Vol] 379 10*3/uL Normal 150-450 [facility] Comment on above: Performed By: #### L IPASE, PT, PTT, CBC, BNP, CK, HS TROP, HEPATIC, BMP #### [facility] [address] [place] [id number] [place] Potassium [Moles/volume] in Serum or PlasmaOrdered By: Kailey Mosley on 03-12-2025 Potassium [Moles/Vol] 4.7 mmol/L Normal 3.5-5.1 [facility] Comment on above: Hemolysis is present at a level that could interfere with the result.Contact lab if redraw is required Result Comment: Hemo lysis is present at a level that could interfere with the result. Contact lab if redraw is required Performed By: #### L IPASE, PT, PTT, CBC, BNP, CK, HS TROP, HEPATIC, BMP #### [facility] [address] [place] [id number] [facility] Protein Test strip (U) [Mass /Vol]Ordered By: Kailey Mosley on 03-12-2025 Protein (U) [Mass/Vol] Negative Negative [facility] Protein [Mass/volume] in Ser um or PlasmaOrdered By: Kailey Mosley on 03-12-2025 Protein [Mass/Vol] 6.9 g/dL Normal 6.4-8.9 [facility] Comment on above: Performed By: #### L IPASE, PT, PTT, CBC, BNP, CK, HS TROP, HEPATIC, BMP #### [facility] [address] [place] [address] [facility] Prothrombin time (PT)Ordered By: Kailey Maryammiguelina on 03-12-2025 PT Coag (PPP) [Time] 11.7 s Normal 9.0-12.9 [facility] Comment on above: A hematocrit value g reater than 55% may lead to inaccurate results in coagulation testing. Patients having hematocrit values >55% require a special collection tube for coagulation studies. Please contact the laboratory at [phone] for redraw instructions. Result Comment: A he matocrit value greater than 55% may lead to inaccurate results in coagulation testing. Patients having hematocrit values >55% require a special collection tube for coagulation studies. Please contact the laboratory at [phone] for redraw instructions. Performed By: #### L IPASE, PT, PTT, CBC, BNP, CK, HS TROP, HEPATIC, BMP ####[facility] [address] Serum globulin measurement b y calculation (mass/volume)Ordered By: Kailey Mosley on 03-12-2025 Globulin (S) [Mass/Vol] 2.6 g/dL [facility] Comment on above: Performed By: #### L IPASE, PT, PTT, CBC, BNP, CK, HS TROP, HEPATIC, BMP #### [facility] [address] Serum or plasma albumin/glob ulin mass ratioOrdered By: Kailey Mosley on 03-12-2025 Albumin/Globulin [Mass ratio] 1.7 {ratio} [facility] Comment on above: Performed By: #### L IPASE, PT, PTT, CBC, BNP, CK, HS TROP, HEPATIC, BMP #### [address] Serum or plasma anion gap de terminationOrdered By: Kailey Molsey on 03-12-2025 Anion gap [Moles/Vol] 10.5 mmol/L Normal 6.0-15.0 [facility] Comment on above: Performed By: #### L IPASE, PT, PTT, CBC, BNP, CK, HS TROP, HEPATIC, BMP #### [address] Serum or plasma non-glucuron idated bilirubin measurement (mass/volume)Ordered By: Kailey Mosley on 03-12-2025 Bilirubin.indirect [Mass/Vol] 0.3 mg/dL [facility] Sodium [Moles/volume] in Ser um or PlasmaOrdered By: Kailey Mosley on 03-12-2025 Sodium [Moles/Vol] 140 mmol/L Normal 136-145 [facility] Comment on above: Performed By: #### L IPASE, PT, PTT, CBC, BNP, CK, HS TROP, HEPATIC, BMP #### [address] Specific gravity Test strip (U) [Rel density]Ordered By: Kailey Mosley on 03-12-2025 Specific gravity (U) [Rel density] 1.032 High 1.001-1.030 [facility] Troponin I High Sensitivityo n 03-12-2025 Troponin I High Sensitivity 6 Normal 0-15 [facility] Comment on above: Result Comment: The Troponin units of report have been changed to meet the Chest Pain Accreditation requirement, element EC5.M1l2. Troponin units are changed from pg/ml to ng/L. Also, the decimal is removed and results are in whole numbers. PERFORMED BY: [place] [address] PATHOLOGIST VIBRATION ANALYST DARCI MCGHEE M.D. Performed By: #### H S TROP ####[address] Troponin I High Sensitivity 5 Normal 0-15 [facility] Comment on above: Result Comment: The Troponin units of report have been changed to meet the Chest Pain Accreditation requirement, element EC5.M1l2. Troponin units are changed from pg/ml to ng/L. Also, the decimal is removed and results are in whole numbers. PERFORMED BY: [place] [address] PATHOLOGIST VIBRATION ANALYST DARCI MCGHEE M.D. Performed By: #### L IPASE, PT, PTT, CBC, BNP, CK, HS TROP, HEPATIC, BMP #### [facility] [address] [place] [address] Troponin I.cardiac [Mass/vol ume] in Serum or Plasma by Detection limit <= 0.01 ng/mLOrdered By: Kailey Mosley on 03-12-2025 Troponin I.cardiac DL <= 0.01 ng/mL [Mass/Vol] 6 ng/L 0-15 [facility] Comment on above: The Troponin units o f report have been changed to meet the Chest Pain Accreditation requirement, element EC5.M1l2. Troponin units are changed from pg/ml to ng/L. Also, the decimal is removed and results are in whole numbers. Urea nitrogen [Mass/volume] in Serum or PlasmaOrdered By: Kailey Mosley on 03-12-2025 Urea nitrogen [Mass/Vol] 26 mg/dL High 7-25 [facility] Comment on above: Performed By: #### L IPASE, PT, PTT, CBC, BNP, CK, HS TROP, HEPATIC, BMP #### [facility] [address] Urine Cultureon 03-12-2025 Bacteria identified Cx Nom (U) <9,000 colonies/ml mixed bacterial skin contaminants 2 Days PERFORMED BY: [place] [address] PATHOLOGIST VIBRATION ANALYST DARCI MCGHEE M.D. Normal [facility] Comment on above: Performed By: #### A DDONUAPLUS, CUU ####[facility] [id number] Urobilinogen Test strip (U) [Mass/Vol]Ordered By: Kailey Mosley on 03-12-2025 Urobilinogen (U) [Mass/Vol] Normal mg/dL Normal [facility] X-ray reportOrdered By: Jose Casey on 03-12-2025 Study report [facility] [address] [place] [address] XRay Report Signed Patient: Constantino Cardoso MR#: [id number] : 1970 Acct:[id number] Age/Sex: 54 / F ADM Date: 5 Loc: ER Room: Type: PRE ER Attending [...] Casey M.D. 03/12/2025 8:55 PM Dictation Location: [place] [address] Transcribed By: ANDREA 03/12/252054 Dictated By: Surendra Casey MD 03/12/252053 Signed By: 03/12/252054 [facility] Work Phone: XR chest 1V portableon 03-12 XR chest 1V portable [facility] [place] [address] [place] [address] XRay Report Signed Patient: Constantino Cardoso MR#: [id number] : 1970 Acct:[id number] Age/Sex: 54 / F ADM Date: 03/12/25 Loc: ER Room: Type: PRE ER Attending Dr: Copies to: Kailey Mosley APRN Ordering Provider: Kialey Mosley APRN Date of Service: 03/12/25 XR/XR chest 1V portable: Shortness of Breath/Dyspnea SINGLE VIEW CHEST CLINICAL HISTORY: Midsternal chest pain, pain with inspiration COMPARISON: CTA chest 03/26/2023 FINDINGS: Mildly prominent cardiomediastinal silhouette could be related to low lung volumes. XR/XR chest 1V portable IMPRESSION: NEGATIVE ACUTE PLEURAL-PARENCHYMAL DISEASE. Impression dictated by: Surendra Casey M.D. 03/12/2025 8:55 PM Dictation Location: [place] [address] Transcribed By: ANDREA 03/12/252054 Dictated By: Surendra Casey MD 03/12/252053 Signed By: 03/12/252054 Normal [facility] aPTT in Platelet poor plasma by Coagulation assayOrdered By: Kailey Mosley on 03-12-2025 aPTT Coag (PPP) [Time] 34.7 s 25.1-36.5 [facility] Comment on above: A hematocrit value g reater than 55% may lead to inaccurate results in coagulation testing. Patients having hematocrit values >55% require a special collection tube for coagulation studies. Please contact the laboratory at [phone] for redraw instructions. pH of Urine by Test stripOrd ered By: Kailey Mosley on 03-12-2025 pH (U) 5.5 [pH] Normal 5.0-9.0 [facility] Comment on above: Order Comment: Name Collection Type:: Clean-Voided Midstream Performed By: #### A DDDUÓSCARHAZEL FAYE ####[facility] [id number] [facility] [place] [address] [facility] Office Visiton 02-28-2025 Follow-up visit [id number] Arielle Cardoso 1970 F Date Provider Department Center 02/28/2025 [id number] Family History Problem Relation Age of Onset Heart attack Father Coronary artery disease Brother Family Status - Relation Status Age at Mother Alive Father Sister Alive Brother Level of Service:82927 AL OFFICE/OUTPATIENT ESTABLISHED MOD MDM 30 MIN Reason for Visit and Comments: follow up stress test [Other] - Had routine stress test last month. Chest Pain [829438] - Still having chest pain but attributes this to her hiatal hernia. She has upcoming EGD and colonoscopy. 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 Says it was running very high. Normal [facility] XR Chest 2 Viewson 5 XR Chest 2 Views Exam Date/Time: 02/16/2025 [...] [facility] FINAL REPORT Dictated: 02/17/2025 9:48 am Alden Sosa MD. Signed (Electronic Signature): 02/17/2025 9:48 am Signed by: Alden Sosa MD Transcribed by: REZA Technologist: KILO Valentin [facility] CBC w/ Auto Diffon 5 Basophil Absolute 0.0 E9/L Normal 0.0-0.2 [facility] Comment on above: Performed By: #### 2 [id number] #### [facility] [address] [place] [address] Basophils/100 WBC (Bld) 0.6 % Normal 0.0-2.0 [facility] Comment on above: Performed By: #### 2 [id number] #### [facility] [address] [place] [address] Eos Absolute 0.3 E9/L Normal 0.0-0.5 [facility] Comment on above: Performed By: #### 2 [id number] #### [facility] [address] [place] [address] Eosinophils/100 WBC (Bld) 5.2 % Normal 0.0-8.0 [facility] Comment on above: Performed By: #### 2 [id number] #### [facility] [address] [place] [address] Erythrocyte distribution width (RBC) [Ratio] 13.5 % Normal 10.9-14.2 [facility] Comment on above: Performed By: #### 2 633709 #### [facility] [address] [place] [address] Hematocrit (Bld) [Volume fraction] 37.7 % Normal 34.0-46.0 [facility] Comment on above: Performed By: #### 2 118563 #### [facility] [address] [place] [address] Hemoglobin (Bld) [Mass/Vol] 12.6 g/dL Normal 12.0-16.0 [facility] Comment on above: Performed By: #### 2 481612 #### [facility] [address] [place] [address] Lymph Absolute 1.7 E9/L Normal 1.0-4.0 [facility] Comment on above: Performed By: #### 2 206758 #### [facility] [address] [place] [address] Lymphocytes/100 WBC (Bld) 26.0 % Normal 14.0-50.0 [facility] Comment on above: Performed By: #### 2 508566 #### [facility] [address] [place] [address] MCH (RBC) [Entitic mass] 29.0 pg Normal 27.0-34.0 [facility] Comment on above: Performed By: #### 2 502084 #### [facility] [address] [place] [address] MCHC (RBC) [Mass/Vol] 33.5 g/dL Normal 31.4-36.0 [facility] Comment on above: Performed By: #### 2 000168 #### [facility] [address] [place] [address] MCV (RBC) [Entitic vol] 86.7 fL Normal 80.0-100.0 [facility] Comment on above: Performed By: #### 2 647650 #### [facility] [address] [place] [address] Mchenry Absolute 0.5 E9/L Normal 0.2-1.0 [facility] Comment on above: Performed By: #### 2 393949 #### [facility] [address] [place] [address] Monocytes/100 WBC (Bld) 7.5 % Normal 4.0-14.0 [facility] Comment on above: Performed By: #### 2 057275 #### [facility] [address] [place] [address] Neutro Absolute 3.9 E9/L Normal 2.0-7.5 [facility] Comment on above: Performed By: #### 2 514803 #### [facility] [address] [place] [address] Neutro Auto 60.7 % Normal 36.0-75.0 [facility] Comment on above: Performed By: #### 2 875243 #### [facility] [address] [place] [address] Platelet 357.0 E9/L Normal 150.0-500.0 [facility] Comment on above: Performed By: #### 2 195992 #### [facility] [address] [place] [address] Platelet mean volume (Bld) [Entitic vol] 7.4 fL Normal 6.4-10.8 [facility] Comment on above: Performed By: #### 2 773695 #### [facility] [address] [place] [address] RBC 4.3 E12/L Normal 4.3-5.9 [facility] Comment on above: Performed By: #### 2 173878 #### [facility] [address] [place] [address] WBC 6.5 E9/L Normal 4.0-11.0 [facility] Comment on above: Performed By: #### 2 236348 #### [facility] [address] [place] [address] CHEMISTRYOrdered By: SYSTEM SYSTEM on 02-16-2025 Albumin [...] 02-16-2025 Albumin [Mass/Vol] 4.3 g/dL Normal 3.3-5.0 [facility] Comment on above: Performed By: #### 2 695245 #### [facility] [address] [place] [address] Albumin/Globulin [Mass ratio] 1.7 {ratio} Normal 1.1-2.2 [facility] Comment on above: Performed By: #### 2 939822 #### [facility] [address] [place] [address] Alk Phos 121 Int._Unit/L High 21-98 [facility] Comment on above: Performed By: #### 2 364946 #### [facility] [address] [place] [address] ALT 12 Int._Unit/L Normal 6-46 [facility] Comment on above: Performed By: #### 2 932548 #### [facility] [address] [place] [address] Anion gap [Moles/Vol] 10 mmol/L Normal 6-16 [facility] Comment on above: Performed By: #### 2 193005 #### [facility] [address] [place] [address] AST 14 Int._Unit/L Normal 5-43 [facility] Comment on above: Performed By: #### 2 391139 #### [facility] [address] [place] [address] Bili Total 0.3 mg/dL Normal 0.0-1.1 [facility] Comment on above: Performed By: #### 2 133374 #### [facility] [address] [place] [address] BUN/Creat Ratio 18 No Units Normal 10-20 [facility] Comment on above: Performed By: #### 2 598346 #### [facility] [address] [place] [address] Calcium [Mass/Vol] 9.3 mg/dL Normal 8.9-11.1 [facility] Comment on above: Performed By: #### 2 932093 #### [facility] [address] [place] [address] Chloride [Moles/Vol] 107 mmol/L Normal 101-111 [facility] Comment on above: Performed By: #### 2 302280 #### [facility] [address] [place] [address] CO2 [Moles/Vol] 26 mmol/L Normal 21-31 [facility] Comment on above: Performed By: #### 2 301583 #### [facility] [address] [place] [address] Creatinine [Mass/Vol] 1.2 mg/dL Normal 0.5-1.3 [facility] Comment on above: Performed By: #### 2 670701 #### [facility] [address] [place] [address] Globulin (S) [Mass/Vol] 2.6 g/dL Normal 1.4-4.0 [facility] Comment on above: Performed By: #### 2 527126 #### [facility] [address] [place] [address] Glucose [Mass/Vol] 114 mg/dL Normal 55-199 [facility] Comment on above: Performed By: #### 2 [id number] #### [facility] [address] [place] [address] Potassium [Moles/Vol] 4.1 mmol/L Normal 3.5-5.3 [facility] Comment on above: Performed By: #### 2 [id number] #### [facility] [address] [place] [address] Protein [Mass/Vol] 6.9 g/dL Normal 6.0-7.8 [facility] Comment on above: Performed By: #### 2 [id number] #### [facility] [address] [place] [address] Sodium [Moles/Vol] 139 mmol/L Normal 135-145 [facility] Comment on above: Performed By: #### 2 [id number] #### [facility] [address] [place] [address] Urea nitrogen [Mass/Vol] 21 mg/dL Normal 5-21 [facility] Comment on above: Performed By: #### 2 510853 #### [facility] [address] [place] [address] ED Clinical Summaryon 2024 ED Clinical Summary ED Clinical Summary [address] [address] ED Clinical Summary Person Information Name: CONSTANTINO CARDOSO [place] Age: 54 Years : 1970 Sex: Female Language: Cook Islander PCP: JUDI YOUSSEF CNP Marital Status: Phone: [phone] MRN: Visit Id: Visit Reason: Nausea; Abdominal [...] 21:01:59 02/16/2025 21:01:59 02/16/2025 21:01:59 ADDRESS: [address] [facility] [id number] PHYS DOC NOTES: MEDICAL INFORMATION: Prescriptions Given: New Medications [id number], [address], [place] [id number], [phone] ondansetron (ondansetron 4 mg Dis Tab) 1 [...] Follow up: With: Address: When: Rambo Purcell [address] [facility], [address], [facility] [address] [place] [address] [phone] Business (1) In 3 days 02/19/2025 With: Address: When: JUDI YOUSSEF [address] [place] [address] [phone] Business (1) In 3 days DIAGNOSIS: Dysphagia; Gastritis Normal [facility] ED Note-Physicianon 02-17-20 ED Note-Physician ED Note-Physician Basic Information Time Seen: Prosper Bergman DO 02/16/2025 18:56 Chief Complaint Abdominal pain, nausea [...] see her GI doctor at a different city but was unable to do so she [...] day(s), # 10 tab(s), Refills(s) 0, Pharmacy: [facility]acy #[id number], 170.2, cm, 02/16/25 18:59:00 EDT, [...] QID, # 280 mL, Refills(s) 0, Pharmacy: [facility]/pharmacy #[id number], 170.2, cm, 02/16/25 18:59:00 EDT, [...] 02/19/2025 EDT [address], [address] [address] [phone] Business (1) Additional Instructions: JUDI YOUSSEF In 3 days [address], [place] [address] [phone] Business (1) Additional Instructions: Problem List/Past Medical History Ongoing Acid reflux Arthritis Asymptomatic microscopic hematuria 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 Normal [facility] Comment on above: Result Comment: Elec tronically Signed By: Prosper Bergman DO\.br\Date and Time Signed: 02/16/25 20:43 EDT ED Patient Education Noteon 02-16-2025 ED Patient Education Note ED Patient Education Note Normal [facility] ED Patient Summaryon 025 ED Patient Summary ED Patient Summary [place] [id number] Patient Discharge Instructions Person Information Name: CONSTANTINO CARDOSO Age: 54 Years Arrival Date: 02/16/2025 18:52:26 Discharge Diagnosis: Dysphagia; Gastritis Primary Care Physician: JUDI YOUSSEF CNP Provider Information Primary Provider: Prosper Bergman DO Advanced Industrial Maintenance Manager:Yokasta The exam and treatment you received in the Emergency Department were for an urgent problem and are not intended as complete care. It is important that you follow up with a doctor, nurse practitioner, or physician???s trust administrative assistant for ongoing care. If your [...] Instructions: With: Address: When: Rambo Purcell [address] [facility], [facility] [address], [place] [id number] [phone] [place] (1) In 3 days 02/19/2025 With: Address: When: JUDI YOUSSEF [address] [place] [id number] [phone] [place] (1) In 3 days In the event that this physician does not participate in your insurance network, please consult with your insurance company to find a nearby participating provider. Patient Education Materials: A MESSAGE TO ALL PATIENTS REGARDING OPIOIDS PRESCRIPTION OPIOIDS: WHAT YOU NEED TO KNOW Prescription opioids can be used to help relieve herodcqr-dz-vqhikr pain and are often prescribed following a [...] overdose. ? (more content not included)... Normal [facility] Extra Blueon 02-16-2025 Tube Collected Plasma Yes Invalid Interpretation Code [facility] Comment on above: Performed By: #### 1 [id number] ####[facility] [address] [place] [address] HEMATOLOGYOrdered By: SYSTEM SYSTEM on 02-16-2025 Basophils/100 [...] 02-16-2025 Lipase Lvl 28 unit/L Normal 13-58 [facility] Comment on above: Performed By: #### 2 [id number] #### [facility] [address] [place] [address] eGFRon 02-16-2025 eGFR 54 mL/min/1.73 m2 Low >=59 [facility] Comment on above: Performed By: #### 1 [id number] #### [facility] [address] [place] [address] 36on 02-04-2025 36 Regarding stress roebrt t result from 01/18/2025: MD Ros Suarez MA Please inform the patient that her stress test is normal. Encourage exercise. Attempted to call patient but mailbox is full and is not accepting messages. Normal [facility] Orders Onlyon 01-11-2025 Orders Only [id number] Arielle Cardoso 1970 F Date Provider Department Center 01/11/2025 [facility] Family History Problem Relation Age of Onset Heart attack Father Coronary artery disease Brother Family Status - Relation Status Age at Mother Alive Father Sister Alive Brother Normal [facility] Office Visiton 12-28-2024 Follow-up visit [id number] Arielle Cardoso R 1970 F Date Provider Department Center 12/28/2024 [facility] Family History Problem Relation Age of Onset Heart attack Father Coronary artery disease Brother Family Status - Relation Status Age at Mother Alive Father Sister Alive Brother Level of Service:93318 AL OFFICE/OUTPATIENT ESTABLISHED MOD MDM 30 MIN Reason for Visit and Comments: Hypertension [189750] Follow up from [facility] ER [Other] Normal [facility] 36on 12-25-2024 36 3 attempts made to contact patient, unable to leave a message, patient has an appointment on 12/28/2024. Normal [facility] 36on 12-20-[address]'s note from the E R, Labs and CT of the chest and Abd are in library media technician for you to review. Normal [facility] Urine Cultureon 12-18-2024 Bacteria identified Cx Nom (U) ORGANISM: Strep agalactiae - (group b) (O:STRAGA) [place] Count 15,000 * This is a corrected result. * A prior result that was reported as final has been changed. 15,000 colonies/ml Mixed Bacterial Skin Contaminants 1 Day removed from report on 12/20/24 PERFORMED BY: [facility] [address] [place] [address] PATHOLOGIST VIBRATION ANALYST JAMES COTA M.D. Normal [facility] Comment on above: Performed By: #### C UU ####[facility] [address] [place] [address] [facility] Urine cultureOrdered By: Lyly Perez on 12-18-2024 Bacteria identified Cx Nom (U) Strep agalactiae - (group b) Abnormal [facility] Patient Letter FTon 2024 Patient Letter [facility] Patient Letter [facility] December 13, 2024 CONSTANTINO WALKER [facility] [place] [address] : 1970 Dear Constantino, This is a reminder that you are due for an appointment with [facility]. Please contact our office at [phone] to schedule an appointment at your earliest convenience. Thank you, [facility] Normal [facility] Miscellaneous-LCon 11-14 Lab Miscellaneous COMMENT Invalid Interpretation Code [facility] Comment on above: Result Comment: Test Ordered: [id number] Venous Thromb. Patients on VKA Homocysteine 9.5 [...] developed and its performance characteristics determined by [employer]. It has not been cleared or approved by the Food and Drug Administration. Factor VII Antigen 172 % UY Reference Range: 7 months and older: 60 - 175 Results of this test are for research purposes only per the assay crystal flat grinder. The performance characteristics of this assay have not been established. The result should not be used as a diagnostic procedure without confirmation of the diagnosis by another medically established diagnostic product or procedure. Protein C Ag/FVII Ag Ratio 0.7 ratio UY Reference Range: 0.5 - 2.2 Results of this test are for research purposes only per the assay crystal flat grinder. The performance characteristics of this assay have not been established. The result should not be used as a diagnostic procedure without confirmation of the diagnosis by another medically established diagnostic product or procedure. Protein S Ag/FVII Ag Ratio 0.5 ratio UY Reference Range: 0.5 - 2.2 Results of this test are for research purposes only per the assay crystal flat grinder. The performance characteristics of this assay have [...] and older: 22.9 - 30.2 APTT 1:1 [employer] NIY sec UY Testing Not Indicated This test was developed and its performance characteristics determined by [employer]. It has not been cleared or approved [...] repeat testing may be indicated. Please contact [employer] [facility] if further clarification is needed. DRVVT [...] Result Comment UY G-G (Normal-Normal) No prothrombin [id number] mutation present. Interpretation: Comment UY While the patient does not possess this risk factor, other thrombotic risk factors may be detected through systematic clinical laboratory analysis. Methodology: Comment UY Patient DNA was evaluated for the factor II gene mutation at n (more content not included)... Performed By: #### 1 [id number] #### [facility] [address] [place] [address] EEGon 10-28-2024 EEG EEG This is a routine electroencephalogram performed on a 54-year-old female using standard 10/20 lead placement and a [employer] system. All data were obtained digitally and [...] recommended. Rush Padilla M.D. ca Dictated: 10/20/2024 [id number] Typed: 10/21/2024 Normal [facility] Comment on above: Result Comment: Elec tronically Signed By: Randy BAKER, Rush\.br\Date and Time Signed: 10/28/24 07:30 EST BMPon 10-20-2024 Anion gap [Moles/Vol] 9 mmol/L Normal 6-16 [facility] Comment on above: Performed By: #### 2 124993 #### [facility] [address] [place] [address] Calcium [Mass/Vol] 8.4 mg/dL Low 8.9-11.1 [facility] Comment on above: Performed By: #### 2 608049 #### [facility] [address] [place] [address] Chloride [Moles/Vol] 112 mmol/L High 101-111 [facility] Comment on above: Performed By: #### 2 538008 #### [facility] [address] [place] [address] CO2 [Moles/Vol] 25 mmol/L Normal 21-31 [facility] Comment on above: Performed By: #### 2 403661 #### [facility] [address] [place] [address] Creatinine [Mass/Vol] 0.6 mg/dL Normal 0.5-1.3 [facility] Comment on above: Performed By: #### 2 159337 #### [facility] [address] [place] [address] Glucose [Mass/Vol] 107 mg/dL Normal 55-199 [facility] Comment on above: Performed By: #### 2 472930 #### [facility] [address] [place] [address] Potassium [Moles/Vol] 4.1 mmol/L Normal 3.5-5.3 [facility] Comment on above: Performed By: #### 2 004198 #### [facility] [address] [place] [address] Sodium [Moles/Vol] 142 mmol/L Normal 135-145 [facility] Comment on above: Performed By: #### 2 735490 #### [facility] [address] [place] [address] Urea nitrogen [Mass/Vol] 23 mg/dL High 5-21 [facility] Comment on above: Performed By: #### 2 243600 #### [facility] [address] [place] [address] Urea nitrogen/Creatinine [Mass ratio] 38 No Units High 10-20 [facility] Comment on above: Performed By: #### 2 252116 #### [facility] [address] [place] [address] CBC w/ Auto Diffon 5 Basophils/100 WBC (Bld) 0.7 % Normal 0.0-2.0 [facility] Comment on above: Performed By: #### 2 658620 #### [facility] [address] [place] [address] Basophils/Leukocytes Auto (Bld) [Pure # fraction] 0.0 E9/L Normal 0.0-0.2 [facility] Comment on above: Performed By: #### 2 323902 #### [facility] [address] [place] [address] Eosinophils (Bld) [#/Vol] 0.2 E9/L Normal 0.0-0.5 [facility] Comment on above: Performed By: #### 2 345099 #### [facility] [address] [place] [address] Eosinophils/100 WBC (Bld) 4.9 % Normal 0.0-8.0 [facility] Comment on above: Performed By: #### 2 256270 #### [facility] [address] [place] [address] Erythrocyte distribution width (RBC) [Ratio] 14.2 % Normal 10.9-14.2 [facility] Comment on above: Performed By: #### 2 681365 #### [facility] [address] [place] [address] Hematocrit (Bld) [Volume fraction] 32.4 % Low 34.0-46.0 [facility] Comment on above: Performed By: #### 2 108019 #### [facility] [address] [place] [address] Hemoglobin (Bld) [Mass/Vol] 11.0 g/dL Low 12.0-16.0 [facility] Comment on above: Performed By: #### 2 990759 #### [facility] [address] [place] [address] Lymphocytes (Bld) [#/Vol] 1.5 E9/L Normal 1.0-4.0 [facility] Comment on above: Performed By: #### 2 850017 #### [facility] [address] [place] [address] Lymphocytes/100 WBC (Bld) 32.6 % Normal 14.0-50.0 [facility] Comment on above: Performed By: #### 2 484857 #### [facility] [address] [place] [address] MCH (RBC) [Entitic mass] 30.1 pg Normal 27.0-34.0 [facility] Comment on above: Performed By: #### 2 620455 #### [facility] [address] [place] [address] MCHC (RBC) [Mass/Vol] 33.9 g/dL Normal 31.4-36.0 [facility] Comment on above: Performed By: #### 2 889454 #### [facility] [address] [place] [address] MCV (RBC) [Entitic vol] 89.0 fL Normal 80.0-100.0 [facility] Comment on above: Performed By: #### 2 492737 #### [facility] [address] [place] [address] Monocytes (Bld) [#/Vol] 0.4 E9/L Normal 0.2-1.0 [facility] Comment on above: Performed By: #### 2 905340 #### [facility] [address] [place] [address] Neutrophils (Bld) [#/Vol] 2.5 E9/L Normal 2.0-7.5 [facility] Comment on above: Performed By: #### 2 092289 #### [facility] [address] [place] [address] Neutrophils/100 WBC (Bld) 53.5 % Normal 36.0-75.0 [facility] Comment on above: Performed By: #### 2 285330 #### [facility] [address] [place] [address] Platelet 385.0 E9/L Normal 150.0-500.0 [facility] Comment on above: Performed By: #### 2 414191 #### [facility] [address] [place] [address] Platelet mean volume (Bld) [Entitic vol] 7.1 fL Normal 6.4-10.8 [facility] Comment on above: Performed By: #### 2 672941 #### [facility] [address] [place] [address] RBC (Bld) [#/Vol] 3.6 E12/L Low 4.3-5.9 [facility] Comment on above: Performed By: #### 2 478617 #### [facility] [address] [place] [address] WBC corrected for nucl RBC Auto (Bld) [#/Vol] 4.6 E9/L Normal 4.0-11.0 [facility] Comment on above: Performed By: #### 2 448771 #### [facility] [address] [place] [address] CHEMISTRYOrdered By: Lab ROP User on 10-20-2024 Glucose [Mass/Vol] 115 mg/dL High 55 - 99 mg/dL [facility] POC Subsection Comment on above: Result Comment: Paul AVRGAS POC Username ALMA MORRIS Invalid Interpretation Code FT POC Subsection Sodium [Moles/Vol] 136834300179 mmol/L Invalid Interpretation Code FT POC Subsection Sodium [Moles/Vol] 551030006 mmol/L Invalid Interpretation Code FT POC Subsection Glucose [Mass/Vol] 93 mg/dL Normal 55 - 99 mg/dL [facility] POC Subsection Comment on above: Result Comment: Paul VARGAS POC Username ALMA MORRIS Invalid Interpretation Code FT POC Subsection Sodium [Moles/Vol] 910972855815 mmol/L Invalid Interpretation Code FT POC Subsection Sodium [Moles/Vol] 564456495 mmol/L Invalid Interpretation Code [facility] POC Subsection CHEMISTRYOrdered By: SYSTEM SYSTEM on [...] 10-06 Glucose [Mass/Vol] 115 mg/dL High 55-99 [facility] Comment on above: Result Comment: Paul VARGAS Performed By: #### 2 [id number] ####[facility] [address] [place] [address] Glucose [Mass/Vol] 93 mg/dL Normal 55-99 [facility] Comment on above: Result Comment: Paul VARGAS Performed By: #### 2 [id number] #### [facility] [address] [place] [address] Discharge Note-Nursingon Discharge Note-Nursing Discharge Note-Nursing CONSTANTINO [...] 1 to 2 days Where: [address] [place] [phone] Business (1) Follow Up with Randy BAKER, REGINALDO Baker When: Within 2 to 4 weeks Where: [place] [address] [place] [address]- Medications What How Much When Why Instructions Next Dose New aspirin (aspirin 81 mg Oral EC Tab) 1 Tablets By Mouth Every day Pickup at [facility]/pharmacy #6177 10/21/24 9am New cyanocobalamin (cyanocobalamin 1000 mcg Tab) 1 Tablets By Mouth Every day Pickup at [facility]/pharmacy #6177 10/21/24 9am New levetiracetam (Keppra 500 mg Tab) 1 Tablets By Mouth 2 times a day Pickup at [facility]/pharmacy #6177 10/20/24 9pm New multivitamin (Multi Vitamins oral tablet) 1 Tablets By Mouth Every day Pickup at [facility]/pharmacy #6177 10/21/24 9am Changed ergocalciferol (ergocalciferol 50,000 intl units Cap) 1 Capsules By Mouth Every 7 days Duration: 7 Weeks Pickup at [facility]/pharmacy #6177 10/27/24 9am Unchanged acarbose [...] Mouth Every day 10/21/24 9am Pharmacy Information [facility]/pharmacy #6177: [address], [place] [phone] What How Much When Why Comments Stop [...] Low (10/20/24 (more content not included)... Normal [facility] HEMATOLOGYOrdered By: SYSTEM SYSTEM on 10-20-2024 [...] 10-20-2024 Inpatient Clinical Summary Inpatient Clinical Summary [place] [id number] Clinical Summary Person Information: Name: CONSTANTINO CARDOSO Age: 54 Years : 1970 Sex: Female PCP: JUDI YOUSSEF CNP Marital Status: Phone: [phone] Race: White Ethnicity: Non- or Language: Cook Islander Visit Id: Visit Reason: Facial droop; Headache; Potential stroke; POSS STROKE Speciality: Acuity: Enc Type: Observation Med Service: Medical Arrival: 10/19/2024 17:04:11 Discharge: Dispo Type: Admitted as IP to this Hosp Address: [address] [place] [phone] Provider Notes: Diagnosis: 1:Stroke-like symptoms; 2:Migraine headache; [...] Attending Physician: Eliezer Lorenzo DO Consulting Physician: Randy BAKER, Rush Referring Physician: Follow up: With: Address: When: JUDI YOUSSEF [address] [place] [phone] Business (1) Within 1 to 2 days With: Address: When: Rush Padilla MD, NEU [address] [address] Within 2 to 4 weeks Patient Education Information: Seizure, Adult, Bpie-ep-Rwuh; Vitamin B12 Deficiency, Jmcw-to-Wlhs; Vitamin D Deficiency, Mliq-rc-Goir; Vitamin D Test; Migraine Headache, Paif-wv-Glwk aspirin 81 mg Oral EC Tab, cyanocobalamin, ergocalciferol 50,000 intl units Cap, multivitamin Normal [facility] Inpatient Clinical Summary Inpatient Clinical Summary [address] [address] Clinical Summary Person Information: Name: CONSTANTINO CARDOSO Age: 54 Years : 1970 Sex: Female PCP: JUDI YOUSSEF CNP Marital Status: Phone: [phone] Race: White Ethnicity: Non- or Language: Cook Islander Visit Id: Visit Reason: Facial droop; Headache; Potential stroke; POSS STROKE Speciality: Acuity: Enc Type: Observation Med Service: Medical Arrival: 10/19/2024 17:04:11 Discharge: Dispo Type: Admitted as IP to this Hosp Address: [address] [facility] [id number] Provider Notes: Diagnosis: 1:Stroke-like symptoms; 2:Migraine headache; [...] every day. Care Team Members: Attending Physician: Elieezr Lorenzo DO Consulting Physician: Rush Padilla MD Referring Physician: Follow up: With: Address: When: JUDI YOUSSEF [address] [place] [phone] Business (1) Within 1 to 2 days With: Address: When: Rush Padilla MD, NEU [place] [address] [place] [address] Within 2 to 4 weeks Patient Education Information: Vitamin B12 Deficiency, Lhlh-kk-Xxub; Vitamin D Deficiency, Edum-do-Fnvn; Vitamin D Test; Migraine Headache, Adll-sz-Tsux aspirin 81 mg Oral EC Tab, cyanocobalamin, ergocalciferol 50,000 intl units Cap, multivitamin Normal [facility] Inpatient Patient Summaryon 10-20-2024 Inpatient Patient Summary Inpatient Patient Summary [address] [address] Patient Discharge Instructions PERSON INFORMATION Name: CONSTANTINO CARDOSO Date of : 1970 Current Date: 10/20/2024 15:59:27 PHYSICIANS Admitting Physician: Eliezer Lorenzo DO Primary Care Physician: JUDI YOUSSEF CNP PCP Phone Number: [phone] Comment: Discharge Diagnosis: 1:Stroke-like symptoms; 2:Migraine headache; [...] With: Address: When: JUDI YOUSSEF [address] [place] [phone] Business (1) Within 1 to 2 days With: Address: When: Randy BAKER, REGINALDO Bakre [facility] [address] [place] [address] Within 2 to 4 weeks [...] OCCURRED DURING YOUR HOSPITAL STAY New Medications [facility]/pharmacy #6177, [address], [place] [id number], [phone] aspirin (aspirin 81 mg Oral EC Tab) [...] Medications to Continue Taking That Have Changed [facility]/pharmacy #6177, [address], [place] [id number], [phone] START: ergocalciferol (ergocalciferol 50,000 intl units Cap) [...] oral tablet) (more content not included)... Normal [facility] Inpatient Patient Summary Inpatient Patient Summary [place] [id number] Patient Discharge Instructions PERSON INFORMATION Name: CONSTANTINO CARDOSO Date of : 1970 Current Date: 10/20/2024 11:40:03 PHYSICIANS Admitting Physician: Eliezer Lorenzo DO Primary Care Physician: JUDI YOUSSEF CNP PCP Phone Number: [phone] Comment: Discharge Diagnosis: 1:Stroke-like symptoms; 2:Migraine headache; [...] With: Address: When: JUDI YOUSSEF [address] [place] [address] [phone] Business (1) Within 1 to 2 days With: Address: When: Randy BAKER, [facility] [address] [facility] [place] [address] Within 2 to 4 weeks In the [...] DURING YOUR HOSPITAL STAY New Medications [facility], [address] [facility] [place] [id number], [phone] aspirin (aspirin 81 mg Oral EC Tab) [...] That Have Changed [facility], [address] [facility] [place] [id number], [phone] START: ergocalciferol (ergocalciferol 50,000 intl units Cap) [...] cyanocobalamin (cyanocobalamin (more content not included)... Normal [facility] Interdisciplinary Note - Issa n 10-20-2024 Interdisciplinary Note - OT Interdisciplinary Note - OT OT eval completed. [facility] score 24/24. Pt is completing ADL tasks and mobility in room at MOD I without AD, increased time due to soreness in R ankle from previous slip on ice. No skilled OT needs at this time. Normal [facility] Lipid Panelon 10-20-2024 Cholesterol [Mass/Vol] 179 mg/dL Normal 120-200 [facility] Comment on above: Performed By: #### 2 [id number] #### [facility] [address] [place] [address] Cholesterol in HDL [Mass/Vol] 52 mg/dL Invalid Interpretation Code [facility] Comment on above: Result Comment: '>= 60 LOW RISK' '<= 40 HIGH RISK' Performed By: #### 2 [id number] #### [facility] [address] [place] [address] Cholesterol in LDL [Mass/Vol] 105 mg/dL Normal <=129 [facility] Comment on above: Performed By: #### 2 [id number] #### [facility] [address] [place] [address] Cholesterol in VLDL [Mass/Vol] 25 mg/dL Normal 7-40 [facility] Comment on above: Performed By: #### 2 [id number] #### [facility] [address] [place] [address] Triglyceride [Mass/Vol] 127 mg/dL Normal <=149 [facility] Comment on above: Performed By: #### 2 [id number] #### [facility] [address] [place] [address] MRA Head w/o Contraston 10-06 MRA Head w/o Contrast Exam Date/Time: 10/19/2024 22:35 EST Reason for Exam: CVA Report IMPRESSION: PROBABLY NEGATIVE HEAD MRA, NOTED. EXAM: MRA Head w/o Contrast DATE: 10/19/2024 7:13 PM CLINICAL HISTORY: CVA. COMPARISON: Head MRI/MRA 10/19/2024. TECHNIQUE: Three-dimensional vzdh-yb-grvoen MRA of the intracranial arterial circulation was [...] MD Transcribed by: REZA Technologist: ANDRA Valentin [facility] MRA Neck w/o Contraston 10-06 MRA Neck w/o Contrast Exam Date/Time: 10/19/2024 22:35 EST Reason for Exam: CVA Report IMPRESSION: NEGATIVE NECK MRA. EXAM: MRA Neck w/o Contrast DATE: 10/19/2024 7:13 PM CLINICAL HISTORY: CVA. Technologist Comments: rt side facial droop, slurred speech, headache; symptoms have resolved currently; r/o stroke; no known injury/head trauma COMPARISON: Head MRI/MRA 10/19/2024. TECHNIQUE: 2D and 3D lubg-hs-qsahph MRA of the neck arterial circulation was [...] Garcia MD Transcribed by: REZA Technologist: ANDRA Junior [facility] MRI Brain w/o Contraston MRI [...] MD Transcribed by: REZA Technologist: ANDRA Normal [facility] U Drug Screenon 10-20-2024 Amphetamines Screen method >1000 ng/mL Ql (U) Negative Normal NEGATIVE [facility] Comment on above: Result Comment: Nega tive Cutoff: <1000 ng/mL Performed By: #### 2 [id number] #### [facility] [address] [place] [address] Barbiturates Screen Ql (U) Negative Normal NEGATIVE [facility] Comment on above: Result Comment: Nega tive Cutoff: <200 ng/mL Performed By: #### 2 [id number] #### [facility] [address] [place] [address] Benzodiazepines Ql (U) Negative Normal NEGATIVE [facility] Comment on above: Result Comment: Nega tive Cutoff: <200 ng/mL Performed By: #### 2 [id number] #### [facility] [address] [place] [address] Cannabinoids Screen Ql (U) Negative Normal NEGATIVE [facility] Comment on above: Result Comment: Nega tive Cutoff: <50 ng/mL Performed By: #### 2 [id number] #### [facility] [address] [place] [address] Cocaine Ql (U) Negative Normal NEGATIVE [facility] Comment on above: Result Comment: Nega tive Cutoff: <300 ng/mL Performed By: #### 2 [id number] #### [facility] [address] [place] [address] Opiates Screen Ql (U) Negative Normal NEGATIVE [facility] Comment on above: Result Comment: Nega tive Cutoff: <300 ng/mL Performed By: #### 2 [id number] #### [facility] [address] [place] [address] Phencyclidine Screen method >25 ng/mL Ql (U) Negative Normal NEGATIVE [facility] Comment on above: Result Comment: Nega tive Cutoff: <25 ng/mL These drug screen results are to be used for medical (i.e., treatment) purposes only. Unconfirmed drug screening results must not be used for non-medical purposes (e.g., employment testing, legal testing). Performed By: #### 2 [id number] #### [facility] [address] [place] [address] U Fentanyl Negative Normal NEGATIVE [facility] Comment on above: Result Comment: Nega tive Cutoff: <5 ng/mL These drug screen results are to be used for medical (i.e., treatment) purposes only. Unconfirmed drug screening results must not be used for non-medical purposes (e.g., employment testing, legal testing). Performed By: #### 2 [id number] #### [facility] [address] [place] [address] UA with Cult Rflxon 10-20-19 25 Bilirubin Ql (U) Negative Normal Negative [facility] Comment on above: Performed By: #### 4 [id number] #### [facility] [address] [place] [address] Clarity (U) Clear Normal Clear [facility] Comment on above: Performed By: #### 4 [id number] #### [facility] [address] [place] [address] Color (U) Yellow Normal Yellow [facility] Comment on above: Result Comment: Micr oscopic readings are only performed on those samples that meet specific criteria set forth by [facility]. Performed By: #### 4 [id number] #### [facility] [address] [place] [address] Glucose Ql (U) Negative Normal Negative [facility] Comment on above: Performed By: #### 4 [id number] #### [facility] [address] [place] [address] Hemoglobin Auto test strip (U) [Mass/Vol] Negative Normal Negative [facility] Comment on above: Performed By: #### 4 [id number] #### [facility] [address] [place] [address] Ketones Auto test strip Ql (U) Negative Normal Negative [facility] Comment on above: Performed By: #### 4 [id number] #### [facility] [address] [place] [address] Leukocyte esterase Auto test strip Ql (U) Negative Normal Negative [facility] Comment on above: Performed By: #### 4 [id number] #### [facility] [address] [place] [address] Nitrite Auto test strip Ql (U) Negative Normal Negative [facility] Comment on above: Performed By: #### 4 [id number] #### [facility] [address] [place] [address] pH (U) 5.5 [pH] Normal 5.0-9.0 [facility] Comment on above: Performed By: #### 4 [id number] #### [facility] [address] [place] [address] Protein Ql (U) Negative Normal Negative [facility] Comment on above: Performed By: #### 4 [id number] #### [facility] [address] [place] [address] Specific gravity (U) [Rel density] 1.028 Normal 1.005-1.030 [facility] Comment on above: Performed By: #### 4 [id number] #### [facility] [address] [place] [address] Urobilinogen (U) [Mass/Vol] Negative Normal Negative [facility] Comment on above: Performed By: #### 4 [id number] #### [facility] [address] [place] [address] Epithelial cells.squamous Auto (Urine sed) [#/Area] 0-2 Invalid Interpretation Code [facility] Comment on above: Performed By: #### 4 [id number] #### [facility] [address] [place] [address] Mucus Auto Ql (U) 1+ CD:[id number] Abnormal Negative [facility] Comment on above: Performed By: #### 4 [id number] #### [facility] [address] [place] [address] RBC Ql (U) 0-3 Normal 0-3 [facility] Comment on above: Performed By: #### 4 [id number] #### [facility] [address] [place] [address] WBC Auto (Urine sed) [#/Area] 0-5 Normal 0-5 [facility] Comment on above: Performed By: #### 4 [id number] #### [facility] [address] [place] [address] URINALYSISOrdered By: Maddison Acosta on 10-20-2024 Bilirubin [...] set forth by [facility]. Glucose Ql (U) Negative Normal [...] (10/20/24 12:51 AM) Normal 5.0 - 9.0 [facility] UA Auto SS Protein Ql (U) Negative Normal Negativemg/ dL FT UA Auto SS Specific gravity (U) [Rel density] 1.028 (10/20/24 12:51 AM) Normal 1.005 - 1.030 FT UA Auto SS Urobilinogen (U) [Mass/Vol] Negative Normal Negativemg/ dL FT UA Auto SS URINALYSISOrdered By: SYSTEM SYSTEM on 10-20-2024 Epithelial cells.squamous Auto (Urine sed) [#/Area] 0-2 graded/HPF Invalid Interpretation Code [facility] UA Auto SS Mucus Auto Ql (U) 1+ graded/LPF Invalid Interpretation Code Negativegra ded/LPF FT UA Auto SS RBC Ql (U) 0-3 graded/HPF Normal 0-3graded/H PF FT UA Auto SS WBC Auto (Urine sed) [#/Area] 0-5 graded/HPF Normal 0-5graded/H PF [facility] UA Auto SS URINALYSISOrdered By: Guerline BEAN on 10-20-2024 UA Spec Desc Clean Catch (10/20/24 12:51 AM) Normal [facility] UA Auto SS Vitamin D 25 Hydroxyon 10-20 25-hydroxyvitamin D3 [Mass/Vol] 12.7 ng/mL Low 30.0-100.0 [facility] Comment on above: Performed By: #### 5 [id number] #### [facility] [address] [place] [address] eGFRon 10-20-2024 eGFR 106 mL/min/1.73 m2 Normal >=59 [facility] Comment on above: Performed By: #### 1 [id number] #### [facility] [address] [place] [address] BB Draw & Holdon 10-19-2024 BB D&H Sample drawn for Blood Ba Normal [facility] Comment on above: Performed By: #### 1 [id number] #### [facility] [address] [place] [address] CBC w/ Auto Diffon RBC size Nom (Bld) NORMAL Invalid Interpretation Code [facility] Comment on above: Performed By: #### 2 [id number] #### [facility] [address] [place] [address] Basophils/100 WBC (Bld) 0.6 % Normal 0.0-2.0 [facility] Comment on above: Performed By: #### 2 [id number] #### [facility] [address] [place] [address] Basophils/Leukocytes Auto (Bld) [Pure # fraction] 0.0 E9/L Normal 0.0-0.2 [facility] Comment on above: Performed By: #### 2 [id number] #### [facility] [address] [place] [address] Eosinophils (Bld) [#/Vol] 0.2 E9/L Normal 0.0-0.5 [facility] Comment on above: Performed By: #### 2 [id number] #### [facility] [address] [place] [address] Eosinophils/100 WBC (Bld) 3.9 % Normal 0.0-8.0 [facility] Comment on above: Performed By: #### 2 [id number] #### [facility] [address] [place] [address] Erythrocyte distribution width (RBC) [Ratio] 14.1 % Normal 10.9-14.2 [facility] Comment on above: Performed By: #### 2 [id number] #### [facility] [address] [place] [address] Hematocrit (Bld) [Volume fraction] 34.6 % Normal 34.0-46.0 [facility] Comment on above: Performed By: #### 2 [id number] #### [facility] [address] [place] [address] Hemoglobin (Bld) [Mass/Vol] 11.9 g/dL Low 12.0-16.0 [facility] Comment on above: Performed By: #### 2 [id number] #### [facility] [address] [place] [address] Lymphocytes (Bld) [#/Vol] 1.8 E9/L Normal 1.0-4.0 [facility] Comment on above: Performed By: #### 2 [id number] #### [facility] [address] [place] [address] Lymphocytes/100 WBC (Bld) 33.3 % Normal 14.0-50.0 [facility] Comment on above: Performed By: #### 2 [id number] #### [facility] [address] [place] [address] MCH (RBC) [Entitic mass] 30.6 pg Normal 27.0-34.0 [facility] Comment on above: Performed By: #### 2 [id number] #### [facility] [address] [place] [address] MCHC (RBC) [Mass/Vol] 34.2 g/dL Normal 31.4-36.0 [facility] Comment on above: Performed By: #### 2 [id number] #### [facility] [address] [place] [address] MCV (RBC) [Entitic vol] 89.5 fL Normal 80.0-100.0 [facility] Comment on above: Performed By: #### 2 [id number] #### [facility] [address] [place] [address] Monocytes (Bld) [#/Vol] 0.4 E9/L Normal 0.2-1.0 [facility] Comment on above: Performed By: #### 2 [id number] #### [facility] [address] [place] [address] Neutrophils (Bld) [#/Vol] 2.9 E9/L Normal 2.0-7.5 [facility] Comment on above: Performed By: #### 2 [id number] #### [facility] [address] [place] [address] Neutrophils/100 WBC (Bld) 55.0 % Normal 36.0-75.0 [facility] Comment on above: Performed By: #### 2 [id number] #### [facility] [address] [place] [address] [place] [address] Platelet mean volume (Bld) [Entitic vol] 7.2 fL Normal 6.4-10.8 [facility] Comment on above: Performed By: #### 2 [id number] #### [facility] [address] [place] [address] Platelets (Bld) [#/Vol] 424.0 E9/L Normal 150.0-500.0 [facility] Comment on above: Performed By: #### 2 [id number] #### [facility] [address] [place] [address] RBC (Bld) [#/Vol] 3.9 E12/L Low 4.3-5.9 [facility] Comment on above: Performed By: #### 2 [id number] #### [facility] [address] [place] [address] WBC corrected for nucl RBC Auto (Bld) [#/Vol] 5.4 E9/L Normal 4.0-11.0 [facility] Comment on above: Performed By: #### 2 [id number] #### [facility] [address] [place] [address] CHEMISTRYOrdered By: Lab ROP User on 10-19-2024 Glucose [Mass/Vol] 93 mg/dL Normal 55 - 99 mg/dL [facility] POC Subsection Comment on above: Result Comment: Paul roche RN/ POC Username STEVIE BELLA Invalid Interpretation Code [facility] POC Subsection Sodium [Moles/Vol] 118016192184 mmol/L Invalid Interpretation Code [facility] POC Subsection Sodium [Moles/Vol] 163008918 mmol/L Invalid Interpretation Code [facility] POC Subsection CHEMISTRYOrdered By: SYSTEM SYSTEM on [...] Sensitivity Troponin I Instructions For Use, [place], April 2018) TSH Qn 1.53 m[IU]/L Normal 0.34 - 5.60 mcIU/mL Remisol Chem Urea nitrogen [Mass/Vol] 22 mg/dL High 5 - 21 mg/dL Remisol Chem Urea nitrogen/Creatinine [Mass ratio] 28 mg/mg High 10 - 20 Remisol Chem CHEMISTRYOrdered By: Britta Ortega on 10-19-2024 HbA1c (Bld) [Mass fraction] 5.7 % Normal <=5.9% [facility] ChemAutoSS CMPon 10-19-2024 Albumin [Mass/Vol] 3.9 g/dL Normal 3.3-5.0 [facility] Comment on above: Performed By: #### 2 [id number] #### [facility] [address] [place] [address] Albumin/Globulin (S) [Mass conc ratio] 1.6 Normal 1.1-2.2 [facility] Comment on above: Performed By: #### 2 [id number] #### [facility] [address] [place] [address] ALP [Catalytic activity/Vol] 120 Int._Unit/L High 21-98 [facility] Comment on above: Performed By: #### 2 [id number] #### [facility] [address] [place] [address] ALT No additional P-5'-P [Catalytic activity/Vol] 11 Int._Unit/L Normal 6-46 [facility] Comment on above: Performed By: #### 2 [id number] #### [facility] [address] [place] [address] Anion gap [Moles/Vol] 9 mmol/L Normal 6-16 [facility] Comment on above: Performed By: #### 2 [id number] #### [facility] [address] [place] [address] AST [Catalytic activity/Vol] 14 Int._Unit/L Normal 5-43 [facility] Comment on above: Performed By: #### 2 [id number] #### [facility] [address] [place] [address] Bilirubin [Mass/Vol] 0.4 mg/dL Normal 0.0-1.1 [facility] Comment on above: Performed By: #### 2 [id number] #### [facility] [address] [place] [address] Calcium [Mass/Vol] 8.9 mg/dL Normal 8.9-11.1 [facility] Comment on above: Performed By: #### 2 [id number] #### [facility] [address] [place] [address] Chloride [Moles/Vol] 110 mmol/L Normal 101-111 [facility] Comment on above: Performed By: #### 2 [id number] #### [facility] [address] [place] [address] CO2 [Moles/Vol] 24 mmol/L Normal 21-31 [facility] Comment on above: Performed By: #### 2 [id number] #### [facility] [address] [place] [address] Creatinine [Mass/Vol] 0.8 mg/dL Normal 0.5-1.3 [facility] Comment on above: Performed By: #### 2 [id number] #### [facility] [address] [place] [address] Globulin (S) [Mass/Vol] 2.4 g/dL Normal 1.4-4.0 [facility] Comment on above: Performed By: #### 2 [id number] #### [facility] [address] [place] [address] Glucose [Mass/Vol] 107 mg/dL Normal 55-199 [facility] Comment on above: Performed By: #### 2 [id number] #### [facility] [address] [place] [address] Potassium [Moles/Vol] 3.4 mmol/L Low 3.5-5.3 [facility] Comment on above: Performed By: #### 2 [id number] #### [facility] [address] [place] [address] Protein [Mass/Vol] 6.3 g/dL Normal 6.0-7.8 [facility] Comment on above: Performed By: #### 2 [id number] #### [facility] [address] [place] [address] Sodium [Moles/Vol] 140 mmol/L Normal 135-145 [facility] Comment on above: Performed By: #### 2 [id number] #### [facility] [address] [place] [address] Urea nitrogen [Mass/Vol] 22 mg/dL High 5-21 [facility] Comment on above: Performed By: #### 2 [id number] #### [facility] [address] [place] [address] Urea nitrogen/Creatinine [Mass ratio] 28 No Units High 10-20 [facility] Comment on above: Performed By: #### 2 [id number] #### [facility] [address] [place] [address] COAGULATIONOrdered By: Anabela Matute on 10-19-2024 aPTT Coag (PPP) [Time] 40.8 s High 25.1 - 36.5 second(s) [facility] Auto Coag Comment on above: Interpretive Data: Cesia lowemeter 15 days - 4 weeks 1 - [...] the same coagulation reagent and instrumentation as [facility]. Currently there are no coagulation studies available worldwide for children to 14 days, and no normal ranges. Heparin therapeutic range (represented by Anti-Factor Xa activity of 0.2 - 0.4 U/mL) corresponds to PTT of 56.6 - 109.0 sec. INR Coag (PPP) [Relative time] 0.96 {INR} Invalid Interpretation Code [facility] Auto Coag Comment on above: Interpretive Data: I NR results are specifically intended to assess patients stabilized on long-term Anticoagulation therapy suggested INR s Less Intensive Anticoagulation 2.0 3.0 Conventional Range 3.0 4.5 PT Coag (PPP) [Time] 10.7 s Normal 9.4 - 1 2.5 second(s) [facility] Auto Coag Comment on above: Interpretive Data: [...] the same coagulation reagent and instrumentation as [facility]. Currently there are no coagulation studies available [...] MD Transcribed by: REZA Technologist: CML Normal [facility] Capillary Glucose POCon 10-06 Glucose [Mass/Vol] 93 mg/dL Normal 55-99 [facility] Comment on above: Result Comment: Paul roche RN/ Performed By: #### 2 [id number] #### [facility] [address] [place] [address] ED Clinical Summaryon 2024 ED Clinical Summary ED Clinical Summary [address] [address] ED Clinical Summary Person Information Name: CONSTANTINO CARDOSO Roberto/[facility] Age: 54 Years : 1970 Sex: Female Language: Cook Islander PCP: JUDI YOUSSEF CNP Marital Status: Phone: [phone] MRN: [id number] Visit Id: Visit Reason: Facial droop; Headache; Potential stroke; POSS STROKE Speciality: Acuity: 2 Enc Type: Observation Med Service: Medical Arrival: 10/19/2024 17:04:11 Discharge: LOS: 000 02:07 Checkin: 10/19/2024 17:04:11 Checkout: 10/19/2024 19:11:15 Dispo Type: Admitted as IP to this [facility] EVENTS: Event Name Event Status Request [...] 10/19/2024 19:11:15 10/19/2024 19:11:15 10/19/2024 19:11:15 ADDRESS: [address] [place] [id number] PHYS DOC NOTES: MEDICAL INFORMATION: Prescriptions Given: [...] deep vein (more content not included)... Normal [facility] ED Note-Physicianon 10-19-19 25 ED Note-Physician [...] Not ta (more content not included)... Normal [facility] Comment on above: Result Comment: Elec tronically Signed By: Prosper Bergman DO\.br\Date and Time Signed: 10/19/24 18:09 EST ED Patient Education Noteon 10-19-2024 ED Patient Education Note ED Patient Education Note Normal [facility] ED Patient Summaryon 025 ED Patient Summary ED Patient Summary [place] [id number] Patient Discharge Instructions Person Information Name: CONSTANTINO CARDOSO Age: 54 Years Arrival Date: 10/19/2024 17:04:11 Discharge Diagnosis: 1:Stroke-like symptoms; 2:Migraine headache; 3:Anemia; 4:Hypokalemia; 5:HTN (hypertension); 6:HLD (hyperlipidemia); 7:Gastroparesis; 8:Acid reflux; 9:Seizure; 10:Osteoarthritis; 11:Obesity due to excess calories; 12:On deep vein thrombosis (DVT) prophylaxis Primary Care Physician: JUDI YOUSSEF CNP Provider Information Primary Provider: Prosper Bergman DO Advanced Industrial Maintenance Manager:None The exam and treatment you received in the Emergency Department were for an urgent problem and are not intended as complete care. It is important that you follow up with a doctor, nurse practitioner, or physician???s trust administrative assistant for ongoing care. If your [...] opioids can be used to help relieve ofuzcfxd-xb-hxrmgm pain and are often prescribed following a [...] believe you (more content not included)... Normal [facility] Ethanolon 10-19-2024 Ethanol Lvl <10 Normal <=11 [facility] Comment on above: Performed By: #### 2 [id number] #### [facility] [address] [place] [address] Ferritinon 10-19-2024 Ferritin [Mass/Vol] 36 ng/mL Normal 11-307 [facility] Comment on above: Performed By: #### 2 [id number] #### [facility] [address] [place] [address] Folateon 10-19-2024 Folate [Mass/Vol] 20.7 ng/mL Normal >=6.7 [facility] Comment on above: Performed By: #### 2 [id number] #### [facility] [address] [place] [address] HEMATOLOGYOrdered By: SYSTEM SYSTEM on 10-19-2024 Basophils/100 [...] Normal 4.0 - 11.0 E9/L Remisol Heme [id number] 10-19-2024 HbA1c (Bld) [Mass fraction] 5.7 % Normal <=5.9 [facility] Comment on above: Performed By: #### 7 [id number] #### [facility] [address] [place] [id number] Ironon 10-19-2024 Iron [Mass/Vol] 52 microgram/dL Normal 35-153 [facility] Comment on above: Performed By: #### 2 [id number] #### [facility] [address] [place] [id number] LDHon 10-19-2024 LDH 186 Int._Unit/L Normal 93-218 [facility] Comment on above: Performed By: #### 2 [id number] #### [facility] [address] [place] [id number] Lab Miscellaneous-LCon 10-19 Test Code 759380 Invalid Interpretation Code [facility] Comment on above: Performed By: #### 1 [id number] #### [facility] [address] [place] [id number] Test Name Hypercoag Prof Invalid Interpretation Code [facility] Comment on above: Performed By: #### 1 [id number] #### [facility] [address] [place] [address] Magnesiumon 10-19-2024 Magnesium [Mass/Vol] 1.9 mg/dL Normal 1.3-2.4 [facility] Comment on above: Performed By: #### 2 [id number] #### [facility] [address] [place] [address] PT & PTTon 10-19-2024 aPTT Coag (PPP) [Time] 40.8 second(s) High 25.1-36.5 [facility] Comment on above: Result Comment: Para [...] the same coagulation reagent and instrumentation as [facility]. Currently there are no coagulation studies available worldwide for children to 14 days, and no normal ranges. Heparin therapeutic range (represented by Anti-Factor Xa activity of 0.2 - 0.4 U/mL) corresponds to PTT of 56.6 - 109.0 sec. Performed By: #### 1 [id number] #### [facility] [address] [place] [address] INR Coag (PPP) [Relative time] 0.96 {INR} Invalid Interpretation Code [facility] Comment on above: Result Comment: INR results are specifically intended to assess patients stabilized on long-term Anticoagulation therapy suggested INR???s ???Less Intensive Anticoagulation??? 2.0 ??? 3.0 Conventional Range 3.0 ??? 4.5 Performed By: #### 1 [id number] #### [facility] [address] [place] [address] PT Coag (PPP) [Time] 10.7 second(s) Normal 9.4-12.5 [facility] Comment on above: Result Comment: 15 [...] the same coagulation reagent and instrumentation as [facility]. Currently there are no coagulation studies available worldwide for children to 14 days, and no normal ranges. Performed By: #### 1 [id number] #### [facility] [address] [place] [address] Pre-Arrival Noteon Pre-Arrival Note Pre-Arrival Note Pre-Arrival Summary Name: nica Current Date: 10/19/2024 17:08:25 EST Gender: Female Date of : Age: 50 Pre-Arrival Type: EMS ETA: 10/19/2024 17:20:00 EST Primary Care Physician: Presenting Problem: facial droop / slurred speech Pre-Arrival User: Stevie Bella Referring Source: Location: [place] Completion Date/Time: 10/19/2024 16:51:00 [facility] Emergency Department Pre-Hospital Report Form ____ Vital Signs: Pre-Hospital Report: Treatment in Route: Response to Treatment: Misc. Issues: Normal [facility] Testing Ordered By: Guerline BEAN on 10-19-2024 Sodium [Moles/Vol] 602891 mmol/L Invalid Interpretation Code [facility] SendOutsSS Test Name Hypercoag Prof Invalid Interpretation Code [facility] SendOutsSS Retic Counton 10-19-2024 Reticulocytes/100 RBC (Bld) 2.4 % High 0.5-2.2 [facility] Comment on above: Performed By: #### 2 [id number] #### [facility] [address] [place] [address] TIBC Calculatedon 10-19-2024 Iron binding capacity [Mass/Vol] 342 microgram/dL Normal 250-400 [facility] Comment on above: Performed By: #### 1 [id number] #### [facility] [address] [place] [address] Transferrin [Mass/Vol] 244 mg/dL Normal 200-370 [facility] Comment on above: Performed By: #### 1 [id number] #### [facility] [address] [place] [address] TSH With T4fr Reflexon 10-19 TSH Qn 1.53 m[IU]/L Normal 0.34-5.60 [facility] Comment on above: Performed By: #### 1 [id number] #### [facility] [address] [place] [address] Troponin 0 Hr.on 10-19-2024 Troponin HS 10.80 pg/mL Normal 10.10-27.10 [facility] Comment on above: Result Comment: The 95% CI (Confidence Interval) PPV (Positive Predictive Value) for myocardial infarction in females is 38 pg/mL, in males 51 pg/mL. The results should be used in conjunction with clinical conditions of myocardial infarction. (Access High Sensitivity Troponin I Instructions For Use, Guill[place], April 2018) Performed By: #### 1 [id number] #### [facility] [address] [place] [address] UA with Cult Rflxon 10-19-19 Type of Urine collection method Clean Catch Normal [facility] Comment on above: Performed By: #### 4 [id number] #### [facility] [address] [place] [address] Vit B12on 10-19-2024 Cobalamin (Vitamin B12) [Mass/Vol] 69 pg/mL Normal 50-1500 [facility] Comment on above: Performed By: #### 2 [id number] #### [facility] [address] [place] [address] XR Chest Single Viewon 10-19 XR Chest [...] MD Transcribed by: REZA Technologist: BRIELLE Valentin [facility] eGFRon 10-19-2024 eGFR 87 mL/min/1.73 m2 Normal >=59 [facility] Comment on above: Performed By: #### 1 [id number] #### [facility] [address] [place] [address] Office Visiton 09-17-2024 Follow-up visit [id number] Arielle Cardoso 1970 F Date Provider Department Center 09/17/2024 [id number]-LBUOOYEDISON KINCAID MICHAEL Zhao Family History Problem Relation Age of Onset Heart attack Father Family Status - Relation Status Age at Father Level of Service:82852 AL OFFICE/OUTPATIENT ESTABLISHED MOD MDM 30 MIN Reason for Visit and Comments: Palpitations [642561] - Occurring no more than usual for her she says. Valve Disorder [3372] - Denies chest pain and SOB. Hypertension [065803] Fatigue [46] - C/o fatigue and no energy . Normal [facility] Basic Metab w/rfx MGon 08-30 Anion gap [Moles/Vol] 11 mmol/L Normal 9-16 [facility] Comment on above: Performed By: #### P HO, BMPX, CDP, MG #### [facility] [address] [place] [address] Parts Product Analyst: Josef Rivera MD Calcium [Mass/Vol] 9.4 mg/dL Normal 8.6-10.4 [facility] Comment on above: Performed By: #### P HO, BMPX, CDP, MG #### [facility] [employer] [address] [place] [address] Parts Product Analyst: Josef Rivera MD Chloride [Moles/Vol] 105 mmol/L Normal 98-107 [facility] Comment on above: Performed By: #### P HO, BMPX, CDP, MG #### [facility] [address] [place] [address] Parts Product Analyst: Josef Rivera MD CO2 [Moles/Vol] 24 mmol/L Normal 20-31 [facility] Comment on above: Performed By: #### P HO, BMPX, CDP, MG #### [facility] [address] [place] [address] Parts Product Analyst: Josef Rivera MD Creatinine [Mass/Vol] 0.8 mg/dL Normal 0.6-0.9 [facility] Comment on above: Performed By: #### P HO, BMPX, CDP, MG #### [facility] [address] [place] [address]26 Parts Product Analyst: Josef Rivera MD GFR/1.73 sq M.predicted among non-blacks MDRD (S/P/Bld) [Vol rate/Area] 88 mL/min/{1.73_m2} Normal >60 [facility] Comment on above: Result Comment: These [...] #### P HO, BMPX, CDP, MG #### [facility] [employer] [address] [place] [address] Parts Product Analyst: Josef iRvera MD Glucose [Mass/Vol] 107 mg/dL High 74-99 [facility] Comment on above: Performed By: #### P HO, BMPX, CDP, MG #### [facility] [address] [place] [address] Parts Product Analyst: Josef Rivera MD Potassium [Moles/Vol] 3.8 mmol/L Normal 3.7-5.3 [facility] Comment on above: Performed By: #### P HO, BMPX, CDP, MG #### [facility] [employer] [address] [place] [address]476 Parts Product Analyst: Josef Rivera MD Sodium [Moles/Vol] 140 mmol/L Normal 136-145 [facility] Comment on above: Performed By: #### P HO, BMPX, CDP, MG #### [facility] [employer] [address] [place] [address] Parts Product Analyst: Josef Rivera MD Urea nitrogen [Mass/Vol] 5 mg/dL Low 6-20 [facility] Comment on above: Performed By: #### P HO, BMPX, CDP, MG #### [facility] [employer] [address] [place] [address] Parts Product Analyst: Josef Rivera MD Basic Metabolic Panel w/ Ref galen to MG 08-30-2024 Anion gap [Moles/Vol] 11 mmol/L 9 - 16 mmol/L [facility] Calcium [Mass/Vol] 9.4 mg/dL 8.6 - 10. 4 mg/dL [facility] Chloride [Moles/Vol] 105 mmol/L 98 - 10 7 mmol/L [facility] CO2 [Moles/Vol] 24 mmol/L 20 - 31 mmol/L [facility] Creatinine [Mass/Vol] 0.8 mg/dL 0.6 - 0.9 mg/dL [facility] Francisco Javier Grayt Rate 88 - PINF [facility] Comment on above: These results are not [...] 107 mg/dL High 74 - 99 mg/dL [facility] Interpretation and review of laboratory results Abnormal [facility] Potassium [Moles/Vol] 3.8 mmol/L 3.7 - 5.3 mmol/L [facility] Sodium [Moles/Vol] 140 mmol/L 136 - 145 mmol/L [facility] Urea nitrogen [Mass/Vol] 5 mg/dL Low 6 - 20 mg/dL [facility] CBC with Auto Differentialon 08-30-2024 Basophils (Bld) [#/Vol] 0.03 10*3/uL [facility] Basophils/100 WBC (Bld) 1 % 0 - 2 % [facility] Eosinophils (Bld) [#/Vol] 0.27 10*3/uL [facility] Eosinophils/100 WBC (Bld) 5 % High 1 - 4 % [facility] Erythrocyte distribution width (RBC) [Ratio] 12.7 % 11.8 - 14.4 % [facility] Hematocrit (Bld) [Volume fraction] 37.4 % 36.3 - 47.1 % [facility] Hemoglobin (Bld) [Mass/Vol] 11.5 g/dL Low 11.9 - 15.1 g/dL [facility] Immature granulocytes (Bld) [#/Vol] [facility] Immature granulocytes/100 WBC (Bld) 0 % 0 [facility] Interpretation and review of laboratory results Abnormal [facility] Lymphocytes/100 WBC (Bld) 25 % 24 - 43 % [facility] Lymphocytes/100 WBC (Bld) 1.35 % [facility] MCH (RBC) [Entitic mass] 28.8 pg 25.2 - 33.5 pg [facility] MCHC (RBC) [Mass/Vol] 30.7 g/dL 28.4 - 34.8 g/dL [facility] MCV (RBC) [Entitic vol] 93.5 fL 82.6 - 102.9 fL [facility] Monocytes/100 WBC (Bld) 9 % 3 - 12 % [facility] Monocytes/100 WBC (Bld) 0.46 % [facility] Neutrophils/100 WBC (Bld) 60 % 36 - 65 % [facility] Nucleated RBC/100 WBC (Bld) [Ratio] 0.0 % 0.0 per 100 WBC [facility] Platelet mean volume (Bld) [Entitic vol] 9.1 fL 8.1 - 13.5 fL [facility] Platelets (Bld) [#/Vol] 321 10*3/uL [facility] RBC (Bld) [#/Vol] 4.00 10*6/uL 3.95 - 5.1 1 m/uL [facility] Segmented neutrophils/100 WBC (Bld) 3.27 % [facility] WBC other (Bld) [#/Vol] 5.4 [facility] CBC with Diffon 08-30-2024 Abs. Basophil 0.03 k/uL Normal 0.00-0.20 [facility] Comment on above: Performed By: #### P HO, BMPX, CDP, MG #### [employer] [address] [place] [address] Parts Product Analyst: Josef Rivera MD Abs.Imm.Granulocyte <0.03 Normal 0.00-0.30 [facility] Comment on above: Performed By: #### P HO, BMPX, CDP, MG #### [employer] [address] [place] [address] Parts Product Analyst: Josef Rivera MD Abs.Neutrophil (Seg) 3.27 k/uL Normal 1.50-8.10 [facility] Comment on above: Performed By: #### P HO, BMPX, CDP, MG #### [facility] [address] [place] [address] Parts Product Analyst: Josef Rivera MD Basophils/100 WBC (Bld) 1 % Normal 0-2 [facility] Comment on above: Performed By: #### P HO, BMPX, CDP, MG #### [facility] [employer] [address] [place] [address] Parts Product Analyst: Josef Rivera MD Eosinophils (Bld) [#/Vol] 0.27 10*3/uL Normal 0.00-0.44 [facility] Comment on above: Performed By: #### P HO, BMPX, CDP, MG #### [facility] [employer] [address] [place] [address] Parts Product Analyst: Josef Rivera MD Eosinophils/100 WBC (Bld) 5 % High 1-4 [facility] Comment on above: Performed By: #### P HO, BMPX, CDP, MG #### [facility] [address] [place] [address] Parts Product Analyst: Josef Rivera MD Erythrocyte distribution width (RBC) [Ratio] 12.7 % Normal 11.8-14.4 [facility] Comment on above: Performed By: #### P HO, BMPX, CDP, MG #### [facility] [address] [place] [address] Parts Product Analyst: Josef Rivera MD Hematocrit (Bld) [Volume fraction] 37.4 % Normal 36.3-47.1 [facility] Comment on above: Performed By: #### P HO, BMPX, CDP, MG #### [employer] [address] [place] [address] Parts Product Analyst: Josef Rivera MD Hemoglobin (Bld) [Mass/Vol] 11.5 g/dL Low 11.9-15.1 [facility] Comment on above: Performed By: #### P HO, BMPX, CDP, MG #### [facility] [employer] [address] [place] [address] Parts Product Analyst: Josef Rivera MD Immature granulocytes/100 WBC (Bld) 0 % Normal 0 [facility] Comment on above: Performed By: #### P HO, BMPX, CDP, MG #### [facility] [employer] [address] [place] [address] Parts Product Analyst: Josef Rivera MD Lymphocytes (Bld) [#/Vol] 1.35 10*3/uL Normal 1.10-3.70 [facility] Comment on above: Performed By: #### P HO, BMPX, CDP, MG #### [address] [address] Parts Product Analyst: Josef Rivera MD Lymphocytes/100 WBC (Bld) 25 % Normal 24-43 [facility] Comment on above: Performed By: #### P HO, BMPX, CDP, MG #### [facility] [employer] [address] [place] [address] Parts Product Analyst: Josef Rivera MD MCH (RBC) [Entitic mass] 28.8 pg Normal 25.2-33.5 [facility] Comment on above: Performed By: #### P HO, BMPX, CDP, MG #### [facility] [employer] [address] [place] [address] Parts Product Analyst: Josef Rivera MD MCHC (RBC) [Mass/Vol] 30.7 g/dL Normal 28.4-34.8 [facility] Comment on above: Performed By: #### P HO, BMPX, CDP, MG #### [address] [address] Parts Product Analyst: Josef Rivera MD MCV (RBC) [Entitic vol] 93.5 fL Normal 82.6-102.9 [facility] Comment on above: Performed By: #### P HO, BMPX, CDP, MG #### [address] [address] Parts Product Analyst: Josef Rivera MD Monocytes (Bld) [#/Vol] 0.46 10*3/uL Normal 0.10-1.20 [facility] Comment on above: Performed By: #### P HO, BMPX, CDP, MG #### [address] [address] Parts Product Analyst: Josef Rivera MD Monocytes/100 WBC (Bld) 9 % Normal 3-12 [facility] Comment on above: Performed By: #### P HO, BMPX, CDP, MG #### [address] [address] Parts Product Analyst: Josef Rivera MD Neutrophil (Seg) 60 % Normal 36-65 [facility] Comment on above: Performed By: #### P HO, BMPX, CDP, MG #### [address] [address] Parts Product Analyst: Josef Rivera MD NRBC Automated 0.0 per 100 WBC Normal 0.0 [facility] Comment on above: Performed By: #### P HO, BMPX, CDP, MG #### [facility] [employer] [address] [place] [address] Parts Product Analyst: Josef Rivera MD Platelet mean volume (Bld) [Entitic vol] 9.1 fL Normal 8.1-13.5 [facility] Comment on above: Performed By: #### P HO, BMPX, CDP, MG #### [address] [place] [address] Parts Product Analyst: Josef Rivera MD Platelets (Bld) [#/Vol] 321 10*3/uL Normal 138-453 [facility] Comment on above: Performed By: #### P HO, BMPX, CDP, MG #### [facility] [address] [place] [address] Parts Product Analyst: Josef Rivera MD RBC (Bld) [#/Vol] 4.00 10*6/uL Normal 3.95-5.11 [facility] Comment on above: Performed By: #### P HO, BMPX, CDP, MG #### [facility] [address] [place] [address] Parts Product Analyst: Josef Rivera MD WBC (Bld) [#/Vol] 5.4 10*3/uL Normal 3.5-11.3 [facility] Comment on above: Performed By: #### P HO, BMPX, CDP, MG #### [facility] [address] [place] [address] Parts Product Analyst: Josef Rivera MD Glucose,Whole Bloodon 2023 Glucose [Mass/Vol] 104 mg/dL Normal 65-105 [facility] Glucose [Mass/Vol] 120 mg/dL High 65-105 [facility] Glucose [Mass/Vol] 97 mg/dL Normal 65-105 [facility] POC Glucose Fingerstickon Glucose [Mass/Vol] 104 mg/dL 65 - 105 mg/dL [facility] [employer] Glucose [Mass/Vol] 120 mg/dL High 65 - 105 mg/dL [facility] Interpretation and review of laboratory results Abnormal [facility] Glucose [Mass/Vol] 97 mg/dL 65 - 105 mg/dL [facility] [employer] Basic Metab w/rfx MGon 12-25 -2024 Anion gap [Moles/Vol] 12 mmol/L Normal 9-16 [facility] Comment on above: Performed By: #### P HO, BMPX, CDP, MG #### [facility] [address] [place] [address] Parts Product Analyst: Josef Rivera MD Calcium [Mass/Vol] 8.9 mg/dL Normal 8.6-10.4 [facility] Comment on above: Performed By: #### P HO, BMPX, CDP, MG #### [facility] [employer] [address] [place] [address] Parts Product Analyst: Josef Rivera MD Chloride [Moles/Vol] 106 mmol/L Normal 98-107 [facility] Comment on above: Performed By: #### P HO, BMPX, CDP, MG #### [facility] [address] [place] [address] Parts Product Analyst: Josef Rivera MD CO2 [Moles/Vol] 22 mmol/L Normal 20-31 [facility] Comment on above: Performed By: #### P HO, BMPX, CDP, MG #### [facility] [employer] [address] [place] [address] Parts Product Analyst: Josef Rivera MD Creatinine [Mass/Vol] 0.7 mg/dL Normal 0.6-0.9 [facility] Comment on above: Performed By: #### P HO, BMPX, CDP, MG #### [facility] [employer] [address] [place] [address] Parts Product Analyst: Josef Rivera MD GFR/1.73 sq M.predicted among non-blacks MDRD (S/P/Bld) [Vol rate/Area] mL/min/{1.73_m2} Normal >60 [facility] Comment on above: Result Comment: These [...] #### P HO, BMPX, CDP, MG #### [facility] [employer] [address] [place] [address] Parts Product Analyst: Josef Rivera MD Glucose [Mass/Vol] 100 mg/dL High 74-99 [facility] Comment on above: Performed By: #### P HO, BMPX, CDP, MG #### [facility] [address] [place] [address] Parts Product Analyst: Josef Rivera MD Potassium [Moles/Vol] 3.4 mmol/L Low 3.7-5.3 [facility] Comment on above: Performed By: #### P HO, BMPX, CDP, MG #### [facility] [employer] [address] [place] [address] Parts Product Analyst: Josef Rivera MD Sodium [Moles/Vol] 140 mmol/L Normal 136-145 [facility] Comment on above: Performed By: #### P HO, BMPX, CDP, MG #### [facility] [employer] [address] [place] [address] Parts Product Analyst: Josef Rivera MD Urea nitrogen [Mass/Vol] 9 mg/dL Normal 6-20 [facility] Comment on above: Performed By: #### P HO, BMPX, CDP, MG #### [facility] [employer] [address] [place] [address] Parts Product Analyst: Josef Rivera MD Basic Metabolic Panel w/ Ref galen to MGon 08-29-2024 Anion gap [Moles/Vol] 12 mmol/L 9 - 16 mmol/L [facility] Calcium [Mass/Vol] 8.9 mg/dL 8.6 - 10. 4 mg/dL [facility] Chloride [Moles/Vol] 106 mmol/L 98 - 10 7 mmol/L [facility] CO2 [Moles/Vol] 22 mmol/L 20 - 31 mmol/L [facility] Creatinine [Mass/Vol] 0.7 mg/dL 0.6 - 0.9 mg/dL [facility] Francisco Javier Gray [facility] Comment on above: These results are [...] 100 mg/dL High 74 - 99 mg/dL [facility] Interpretation and review of laboratory results Abnormal [facility] Potassium [Moles/Vol] 3.4 mmol/L Low 3.7 - 5.3 mmol/L [facility] Sodium [Moles/Vol] 140 mmol/L 136 - 145 mmol/L [facility] Urea nitrogen [Mass/Vol] 9 mg/dL 6 - 20 mg/dL [facility] CBC with Auto Differentialon 08-29-2024 Basophils (Bld) [#/Vol] [facility] Basophils/100 WBC (Bld) 0 % 0 - 2 % [facility] Eosinophils (Bld) [#/Vol] 0.24 10*3/uL [facility] Eosinophils/100 WBC (Bld) 4 % 1 - 4 % [facility] Erythrocyte distribution width (RBC) [Ratio] 13.1 % 11.8 - 14.4 % [facility] Hematocrit (Bld) [Volume fraction] 35.8 % Low 36.3 - 47.1 % [facility] Hemoglobin (Bld) [Mass/Vol] 11.2 g/dL Low 11.9 - 15.1 g/dL [facility] Immature granulocytes (Bld) [#/Vol] [facility] Immature granulocytes/100 WBC (Bld) 0 % 0 [facility] Interpretation and review of laboratory results Abnormal [facility] Lymphocytes/100 WBC (Bld) 25 % 24 - 43 % [facility] Lymphocytes/100 WBC (Bld) 1.43 % [facility] MCH (RBC) [Entitic mass] 29.2 pg 25.2 - 33.5 pg [facility] MCHC (RBC) [Mass/Vol] 31.3 g/dL 28.4 - 34.8 g/dL [facility] MCV (RBC) [Entitic vol] 93.2 fL 82.6 - 102.9 fL [facility] Monocytes/100 WBC (Bld) 7 % 3 - 12 % [facility] Monocytes/100 WBC (Bld) 0.39 % [facility] Neutrophils/100 WBC (Bld) 63 % 36 - 65 % [facility] Nucleated RBC/100 WBC (Bld) [Ratio] 0.0 % 0.0 per 100 WBC [facility] Platelet mean volume (Bld) [Entitic vol] 9.2 fL 8.1 - 13.5 fL [facility] Platelets (Bld) [#/Vol] 318 10*3/uL [facility] RBC (Bld) [#/Vol] 3.84 10*6/uL Low 3.95 - 5.1 1 m/uL [facility] Segmented neutrophils/100 WBC (Bld) 3.62 % [facility] WBC other (Bld) [#/Vol] 5.7 [facility] CBC with Diffon 08-29-2024 Abs. Basophil <0.03 Normal 0.00-0.20 [facility] Comment on above: Performed By: #### P HO, BMPX, CDP, MG #### [employer] [address] [place] [address] Parts Product Analyst: Josef Rivera MD Abs.Imm.Granulocyte <0.03 Normal 0.00-0.30 [facility] Comment on above: Performed By: #### P HO, BMPX, CDP, MG #### [employer] [address] [place] [address] Parts Product Analyst: Josef Rivera MD Abs.Neutrophil (Seg) 3.62 k/uL Normal 1.50-8.10 [facility] Comment on above: Performed By: #### P HO, BMPX, CDP, MG #### [facility] [employer] [address] [place] [address] Parts Product Analyst: Josef Rivera MD Basophils/100 WBC (Bld) 0 % Normal 0-2 [facility] Comment on above: Performed By: #### P HO, BMPX, CDP, MG #### [facility] [employer] [address] [place] [address] Parts Product Analyst: Josef Rivera MD Eosinophils (Bld) [#/Vol] 0.24 10*3/uL Normal 0.00-0.44 [facility] Comment on above: Performed By: #### P HO, BMPX, CDP, MG #### [facility] [employer] [address] [place] [address] Parts Product Analyst: Josef Rivera MD Eosinophils/100 WBC (Bld) 4 % Normal 1-4 [facility] Comment on above: Performed By: #### P HO, BMPX, CDP, MG #### [facility] [employer] [address] [place] [address] Parts Product Analyst: Josef Rivera MD Erythrocyte distribution width (RBC) [Ratio] 13.1 % Normal 11.8-14.4 [facility] Comment on above: Performed By: #### P HO, BMPX, CDP, MG #### [facility] [employer] [address] [place] [address] Parts Product Analyst: Josef Rivera MD Hematocrit (Bld) [Volume fraction] 35.8 % Low 36.3-47.1 [facility] Comment on above: Performed By: #### P HO, BMPX, CDP, MG #### [facility] [employer] [address] [place] [address] Parts Product Analyst: Josef Rivera MD Hemoglobin (Bld) [Mass/Vol] 11.2 g/dL Low 11.9-15.1 [facility] Comment on above: Performed By: #### P HO, BMPX, CDP, MG #### [address] [address] Parts Product Analyst: Josef Rivera MD Immature granulocytes/100 WBC (Bld) 0 % Normal 0 [facility] Comment on above: Performed By: #### P HO, BMPX, CDP, MG #### [address] [address] Parts Product Analyst: Josef Rivera MD Lymphocytes (Bld) [#/Vol] 1.43 10*3/uL Normal 1.10-3.70 [facility] Comment on above: Performed By: #### P HO, BMPX, CDP, MG #### [address] [address] Parts Product Analyst: Josef Rivera MD Lymphocytes/100 WBC (Bld) 25 % Normal 24-43 [facility] Comment on above: Performed By: #### P HO, BMPX, CDP, MG #### [facility] [employer] [address] [place] [address] Parts Product Analyst: Josef Rivera MD MCH (RBC) [Entitic mass] 29.2 pg Normal 25.2-33.5 [facility] Comment on above: Performed By: #### P HO, BMPX, CDP, MG #### [facility] [employer] [address] [place] [address] Parts Product Analyst: Josef Rivera MD MCHC (RBC) [Mass/Vol] 31.3 g/dL Normal 28.4-34.8 [facility] Comment on above: Performed By: #### P HO, BMPX, CDP, MG #### [facility] [employer] [address] [place] [address] [employer] Product Analyst: Josef Rivera MD MCV (RBC) [Entitic vol] 93.2 fL Normal 82.6-102.9 [facility] Comment on above: Performed By: #### P HO, BMPX, CDP, MG #### [address] [address] Parts Product Analyst: Josef Rivera MD Monocytes (Bld) [#/Vol] 0.39 10*3/uL Normal 0.10-1.20 [facility] Comment on above: Performed By: #### P HO, BMPX, CDP, MG #### [place] [address] Parts Product Analyst: Josef Rivera MD Monocytes/100 WBC (Bld) 7 % Normal 3-12 [facility] Comment on above: Performed By: #### P HO, BMPX, CDP, MG #### [place] [address] Parts Product Analyst: Josef Rivera MD Neutrophil (Seg) 63 % Normal 36-65 [facility] Comment on above: Performed By: #### P HO, BMPX, CDP, MG #### [facility] [employer] [address] [place] [address] Parts Product Analyst: Josef Rivera MD NRBC Automated 0.0 per 100 WBC Normal 0.0 [facility] Comment on above: Performed By: #### P HO, BMPX, CDP, MG #### [facility] [employer] [address] [place] [address] [employer] Product Analyst: Josef Rivera MD Platelet mean volume (Bld) [Entitic vol] 9.2 fL Normal 8.1-13.5 [facility] Comment on above: Performed By: #### P HO, BMPX, CDP, MG #### [facility] [employer] [address] [place] [address] Parts Product Analyst: Josef Rivera MD Platelets (Bld) [#/Vol] 318 10*3/uL Normal 138-453 [facility] Comment on above: Performed By: #### P HO, BMPX, CDP, MG #### [facility] [address] [place] [address] Parts Product Analyst: Josef Rivera MD RBC (Bld) [#/Vol] 3.84 10*6/uL Low 3.95-5.11 [facility] Comment on above: Performed By: #### P HO, BMPX, CDP, MG #### [facility] [address] [place] [address] Parts Product Analyst: Jsoef Rivera MD WBC (Bld) [#/Vol] 5.7 10*3/uL Normal 3.5-11.3 [facility] Comment on above: Performed By: #### P HO, BMPX, CDP, MG #### [facility] [address] [place] [address] Parts Product Analyst: Josef Rivera MD Glucose,Whole Bloodon 2023 Glucose [Mass/Vol] 112 mg/dL High 65-105 [facility] Glucose [Mass/Vol] 114 mg/dL High 65-105 [facility] Glucose [Mass/Vol] 104 mg/dL Normal 65-105 [facility] Glucose [Mass/Vol] 106 mg/dL High 65-105 [facility] Magnesiumon 08-29-2024 Magnesium [Mass/Vol] 2.1 mg/dL 1.6 - 2 .6 mg/dL [facility] Magnesium [Mass/Vol] 2.1 mg/dL Normal 1.6-2.6 [facility] Comment on above: Performed By: #### P HO, BMPX, CDP, MG #### [facility] [address] [place] [address] Parts Product Analyst: Josef Rivera MD No Panel Informationon 08-29 [facility] POC Glucose Fingerstickon Glucose [Mass/Vol] 112 mg/dL High 65 - 105 mg/dL [facility] Interpretation and review of laboratory results Abnormal [facility] Glucose [Mass/Vol] 114 mg/dL High 65 - 105 mg/dL [facility] Interpretation and review of laboratory results Abnormal [facility] Glucose [Mass/Vol] 104 mg/dL 65 - 105 mg/dL [facility] Interpretation and review of laboratory results Abnormal [facility] Phosphoruson 08-29-2024 Phosphate [Mass/Vol] 4.0 mg/dL 2.5 - 4 .5 mg/dL [facility] Phosphorus, Inorg.on Phosphorus, Inorg. 4.0 mg/dL Normal 2.5-4.5 [facility] Comment on above: Performed By: #### P HO, BMPX, CDP, MG #### [facility] [address] [place] [address] Parts Product Analyst: Josef Rivera MD XR ABDOMEN (KUB) (SINGLE [...] likely within the antrum of the stomach. monitoring engineer leads overlie the upper abdomen. Iliac wings [...] Paco Richardson MD 08/29/24 Final result Normal [facility] XR Abdomen Single viewon 1. Moderate gaseous distention of the rectal vault. Gas and stool in the rectal vault. 2. Mild stool burden. No abnormally dilated small bowel loops. 3. NG tube distal tip overlying the medial right upper quadrant likely in the antrum of the stomach. [facility] EXAMINATION: ONE SUPINE XRAY VIEW(S) OF [...] likely within the antrum of the stomach. monitoring engineer leads overlie the upper abdomen. Iliac wings and pubic rami grossly unremarkable in appearance. [facility] Paco Richardson MD - 08/29/2024 EXAMINATION: [...] likely within the antrum of the stomach. monitoring engineer leads overlie the upper abdomen. Iliac wings and pubic rami grossly unremarkable in appearance. IMPRESSION: 1. Moderate gaseous distention of the rectal vault. Gas and stool in the rectal vault. 2. Mild stool burden. No abnormally dilated small bowel loops. 3. NG tube distal tip overlying the medial right upper quadrant likely in the antrum of the stomach. [facility] Radiology Study observation (narrative) [facility] XR Abdomen Single viewOrdere d By: Paco Richardson on 08-29-2024 [facility] Work Phone: CBC with Auto Differentialon 08-28-2024 Basophils (Bld) [#/Vol] [facility] Basophils/100 WBC (Bld) 0 % 0 - 2 % [facility] Eosinophils (Bld) [#/Vol] 0.05 10*3/uL [facility] Eosinophils/100 WBC (Bld) 1 % 1 - 4 % [facility] Erythrocyte distribution width (RBC) [Ratio] 13.1 % 11.8 - 14.4 % [facility] Hematocrit (Bld) [Volume fraction] 37.2 % 36.3 - 47.1 % [facility] Hemoglobin (Bld) [Mass/Vol] 11.9 g/dL 11.9 - 15.1 g/dL [facility] Immature granulocytes (Bld) [#/Vol] 0.03 10*3/uL [facility] Immature granulocytes/100 WBC (Bld) 0 % 0 [facility] Interpretation and review of laboratory results Abnormal [facility] Lymphocytes/100 WBC (Bld) 11 % Low 24 - 43 % [facility] Lymphocytes/100 WBC (Bld) 0.99 % Low [facility] MCH (RBC) [Entitic mass] 29.5 pg 25.2 - 33.5 pg [facility] MCHC (RBC) [Mass/Vol] 32.0 g/dL 28.4 - 34.8 g/dL [facility] MCV (RBC) [Entitic vol] 92.3 fL 82.6 - 102.9 fL [facility] Monocytes/100 WBC (Bld) 5 % 3 - 12 % [facility] Monocytes/100 WBC (Bld) 0.40 % [facility] Neutrophils/100 WBC (Bld) 83 % High 36 - 65 % [facility] Nucleated RBC/100 WBC (Bld) [Ratio] 0.0 % 0.0 per 100 WBC [facility] Platelet mean volume (Bld) [Entitic vol] 9.2 fL 8.1 - 13.5 fL [facility] Platelets (Bld) [#/Vol] 359 10*3/uL [facility] RBC (Bld) [#/Vol] 4.03 10*6/uL 3.95 - 5.1 1 m/uL [facility] Segmented neutrophils/100 WBC (Bld) 7.44 % [facility] WBC other (Bld) [#/Vol] 8.9 [facility] CBC with Diffon 08-28-2024 Abs. Basophil <0.03 Normal 0.00-0.20 [facility] Comment on above: Performed By: #### C DP, CP #### [place] [address] Parts Product Analyst: Josef Rivera MD Abs.Imm.Granulocyte 0.03 k/uL Normal 0.00-0.30 [facility] Comment on above: Performed By: #### C DP, CP #### [place] [address] Parts Product Analyst: Josef Rivera MD Abs.Neutrophil (Seg) 7.44 k/uL Normal 1.50-8.10 [facility] Comment on above: Performed By: #### C DP, CP #### [place] [address] Parts Product Analyst: Josef Rivera MD Basophils/100 WBC (Bld) 0 % Normal 0-2 [facility] Comment on above: Performed By: #### C DP, CP #### [place] [address] [employer] Product Analyst: Josef Rivera MD Eosinophils (Bld) [#/Vol] 0.05 10*3/uL Normal 0.00-0.44 [facility] Comment on above: Performed By: #### C DP, CP #### [address] [address] Parts Product Analyst: Josef Rivera MD Eosinophils/100 WBC (Bld) 1 % Normal 1-4 [facility] Comment on above: Performed By: #### C DP, CP #### [place] [address] Parts Product Analyst: Josef Rivera MD Erythrocyte distribution width (RBC) [Ratio] 13.1 % Normal 11.8-14.4 [facility] Comment on above: Performed By: #### C DP, CP #### [place] [address] Parts Product Analyst: Josef Rivera MD Hematocrit (Bld) [Volume fraction] 37.2 % Normal 36.3-47.1 [facility] Comment on above: Performed By: #### C DP, CP #### [place] [address] Parts Product Analyst: Josef Rivera MD Hemoglobin (Bld) [Mass/Vol] 11.9 g/dL Normal 11.9-15.1 [facility] Comment on above: Performed By: #### C DP, CP #### [address] [address] Parts Product Analyst: Josef Rivera MD Immature granulocytes/100 WBC (Bld) 0 % Normal 0 [facility] Comment on above: Performed By: #### C DP, CP #### [address] [address] Parts Product Analyst: Josef Rivera MD Lymphocytes (Bld) [#/Vol] 0.99 10*3/uL Low 1.10-3.70 [facility] Comment on above: Performed By: #### C DP, CP #### [address] [address] Parts Product Analyst: Josef Rivera MD Lymphocytes/100 WBC (Bld) 11 % Low 24-43 [facility] Comment on above: Performed By: #### C DP, CP #### [address] [address] Parts Product Analyst: Josef Rivera MD MCH (RBC) [Entitic mass] 29.5 pg Normal 25.2-33.5 [facility] Comment on above: Performed By: #### C DP, CP #### [address] [address] Parts Product Analyst: Josef Rivera MD MCHC (RBC) [Mass/Vol] 32.0 g/dL Normal 28.4-34.8 [facility] Comment on above: Performed By: #### C DP, CP #### [address] [address] Parts Product Analyst: Josef Rivera MD MCV (RBC) [Entitic vol] 92.3 fL Normal 82.6-102.9 [facility] Comment on above: Performed By: #### C DP, CP #### [address] [address] Parts Product Analyst: Josef Rivera MD Monocytes (Bld) [#/Vol] 0.40 10*3/uL Normal 0.10-1.20 [facility] Comment on above: Performed By: #### C DP, CP #### [address] [address] Parts Product Analyst: Josef Rivera MD Monocytes/100 WBC (Bld) 5 % Normal 3-12 [facility] Comment on above: Performed By: #### C DP, CP #### [address] [address] Parts Product Analyst: Josef Rivera MD Neutrophil (Seg) 83 % High 36-65 [facility] Comment on above: Performed By: #### C DP, CP #### [address] [address] Parts Product Analyst: Josef Rivera MD NRBC Automated 0.0 per 100 WBC Normal 0.0 [facility] Comment on above: Performed By: #### C DP, CP #### [address] [address] Parts Product Analyst: Josef Rivera MD Platelet mean volume (Bld) [Entitic vol] 9.2 fL Normal 8.1-13.5 [facility] Comment on above: Performed By: #### C DP, CP #### [address] [address] Parts Product Analyst: Josef Rivera MD Platelets (Bld) [#/Vol] 359 10*3/uL Normal 138-453 [facility] Comment on above: Performed By: #### C DP, CP #### [address] [address] Parts Product Analyst: Josef Rivera MD RBC (Bld) [#/Vol] 4.03 10*6/uL Normal 3.95-5.11 [facility] Comment on above: Performed By: #### C DP, CP #### [address] [address] Parts Product Analyst: Josef Rivera MD WBC (Bld) [#/Vol] 8.9 10*3/uL Normal 3.5-11.3 [facility] Comment on above: Performed By: #### C DP, CP #### [address] [address] Parts Product Analyst: Josef Rivera MD Comp Metabolic Profon 12-24- 2024 Albumin [Mass/Vol] 4.2 g/dL Normal 3.5-5.2 [facility] Comment on above: Performed By: #### P HO, BMPX, CDP, MG #### [facility] [employer] [address] [place] [address] Parts Product Analyst: Josef Rivera MD Albumin/Glob Ratio 1.4 Normal 1.0-2.5 [facility] Comment on above: Performed By: #### P HO, BMPX, CDP, MG #### [facility] [employer] [address] [place] [address] Parts Product Analyst: Josef Rivera MD Alkaline Phos 162 U/L High 35-104 [facility] Comment on above: Performed By: #### P HO, BMPX, CDP, MG #### [address] [address] Parts Product Analyst: Josef Rivera MD ALT [Catalytic activity/Vol] 14 U/L Normal 10-35 [facility] Comment on above: Performed By: #### P HO, BMPX, CDP, MG #### [address] [address] Parts Product Analyst: Josef Rivera MD Anion gap [Moles/Vol] 11 mmol/L Normal 9-16 [facility] Comment on above: Performed By: #### P HO, BMPX, CDP, MG #### [facility] [employer] [address] [place] [address] Parts Product Analyst: Josef Rivera MD AST [Catalytic activity/Vol] 23 U/L Normal 10-35 [facility] Comment on above: Performed By: #### P HO, BMPX, CDP, MG #### [facility] [employer] [address] [place] [address] Parts Product Analyst: Josef Rivera MD Bilirubin [Mass/Vol] 0.2 mg/dL Normal 0.0-1.2 [facility] Comment on above: Performed By: #### P HO, BMPX, CDP, MG #### [facility] [address] [place] [address] Parts Product Analyst: Josef Rivera MD Calcium [Mass/Vol] 9.4 mg/dL Normal 8.6-10.4 [facility] Comment on above: Performed By: #### P HO, BMPX, CDP, MG #### [facility] [address] [place] [address] Parts Product Analyst: Josef Rivera MD Chloride [Moles/Vol] 104 mmol/L Normal 98-107 [facility] Comment on above: Performed By: #### P HO, BMPX, CDP, MG #### [facility] [employer] [address] [place] [address] Parts Product Analyst: Josef Rivera MD CO2 [Moles/Vol] 23 mmol/L Normal 20-31 [facility] Comment on above: Performed By: #### P HO, BMPX, CDP, MG #### [facility] [employer] [address] [place] [address] [employer] Product Analyst: Josef Rivera MD Creatinine [Mass/Vol] 0.7 mg/dL Normal 0.6-0.9 [facility] Comment on above: Performed By: #### P HO, BMPX, CDP, MG #### [facility] [employer] [address] [place] [address] Parts Product Analyst: Josef Rivera MD GFR/1.73 sq M.predicted among non-blacks MDRD (S/P/Bld) [Vol rate/Area] mL/min/{1.73_m2} Normal >60 [facility] Comment on above: Result Comment: These [...] #### P HO, BMPX, CDP, MG #### [facility] [employer] [address] [place] [address] [employer] Product Analyst: Josef Rivera MD Glucose [Mass/Vol] 115 mg/dL High 74-99 [facility] Comment on above: Performed By: #### P HO, BMPX, CDP, MG #### [facility] [address] [place] [address] Parts Product Analyst: Josef Rivera MD Potassium [Moles/Vol] 4.3 mmol/L Normal 3.7-5.3 [facility] Comment on above: Performed By: #### P HO, BMPX, CDP, MG #### [address] [address] Parts Product Analyst: Josef Rivera MD Protein [Mass/Vol] 7.1 g/dL Normal 6.6-8.7 [facility] Comment on above: Performed By: #### P HO, BMPX, CDP, MG #### [facility] [employer] [address] [place] [address] Parts Product Analyst: Josef Rivera MD Sodium [Moles/Vol] 138 mmol/L Normal 136-145 [facility] Comment on above: Performed By: #### P HO, BMPX, CDP, MG #### [facility] [employer] [address] [place] [address] Parts Product Analyst: Josef Rivera MD Urea nitrogen [Mass/Vol] 9 mg/dL Normal 6-20 [facility] Comment on above: Performed By: #### P HO, BMPX, CDP, MG #### [facility] [employer] [address] [place] [address] Parts Product Analyst: Josef Rivera MD [facility] Metabolic Pane [facility] 08-28-2024 Albumin [Mass/Vol] 4.2 g/dL 3.5 - 5.2 g/dL [facility] Albumin/Globulin [Mass ratio] 1.4 {ratio} 1.0 - 2.5 [facility] ALP [Catalytic activity/Vol] 162 U/L High 35 - 104 U/L [facility] ALT [Catalytic activity/Vol] 14 U/L 10 - 35 U/L [facility] Anion gap [Moles/Vol] 11 mmol/L 9 - 16 mmol/L [facility] AST [Catalytic activity/Vol] 23 U/L 10 - 35 U/L [facility] Bilirubin [Mass/Vol] 0.2 mg/dL 0.0 - 1 .2 mg/dL [facility] Calcium [Mass/Vol] 9.4 mg/dL 8.6 - 10. 4 mg/dL [facility] Chloride [Moles/Vol] 104 mmol/L 98 - 10 7 mmol/L [facility] CO2 [Moles/Vol] 23 mmol/L 20 - 31 mmol/L [facility] Creatinine [Mass/Vol] 0.7 mg/dL 0.6 - 0.9 mg/dL [facility] Est, Gloclementina Crookst Rate - PINF [facility] Comment on above: These results are not [...] 115 mg/dL High 74 - 99 mg/dL [facility] Interpretation and review of laboratory results Abnormal [facility] Potassium [Moles/Vol] 4.3 mmol/L 3.7 - 5.3 mmol/L [facility] Protein [Mass/Vol] 7.1 g/dL 6.6 - 8.7 g/dL [facility] Sodium [Moles/Vol] 138 mmol/L 136 - 145 mmol/L [facility] Urea nitrogen [Mass/Vol] 9 mg/dL 6 - 20 mg/dL [facility] Glucose,Whole Bloodon 2023 Glucose [Mass/Vol] 100 mg/dL Normal 65-105 [facility] Lactic Acidon 08-28-2024 Lactic Acid, Whole Blood 1.2 mmol/L 0.7 - 2.1 mmol/L [facility] Lactic Acid,Whole Bl 1.2 mmol/L Normal 0.7-2.1 [facility] Comment on above: Performed By: #### P HO, BMPX, CDP, MG #### [facility] [address] [place], [place] [address] Parts Product Analyst: Josef Rivera MD Magnesiumon 08-28-2024 Magnesium [Mass/Vol] 2.1 mg/dL 1.6 - 2 .6 mg/dL [facility] Magnesium [Mass/Vol] 2.1 mg/dL Normal 1.6-2.6 [facility] Comment on above: Performed By: #### M G #### [facility] [address] [place], [place] [id number] Parts Product Analyst: Josef Rivera MD POC Glucose Fingerstickon Glucose [Mass/Vol] 100 mg/dL 65 - 105 mg/dL [facility] XR ABDOMEN (KUB) (SINGLE AP VIEW)on 08-28-2024 [...] Rashaad Lopez MD 08/28/24 Final result Normal [facility] XR Abdomen Single viewon 1. Nonobstructive marium wel gas pattern. 2. Mild left lower lobe infiltrate, which could represent pneumonia. [facility] EXAMINATION: ONE SUPINE XRAY VIEW(S) OF [...] could represent pneumonia. Bony structures appear normal. [facility] Rashaad Lopez MD - 08/28/2024 EXAMINATION: [...] lower lobe infiltrate, which could represent pneumonia. [facility] Radiology Study observation (narrative) [facility] XR Abdomen Single viewOrdere d By: Rashaad Lopez on 08-28-2024 [facility] Work Phone: Glucose (Bld) [Mass/Vol]on 09-12-2023 Glucose Blood, POC 90 mg/dL [facility] - Hematology and Cell countson 07-13-2024 HbA1c (Bld) [Mass fraction] 5.6 % [facility] No Panel Informationon 07-13 Interpretation and review of laboratory results Normal [facility] Glucose (Bld) [Mass/Vol]Orde red By: Beverly Clemons on 06-20-2024 Glucose Blood, POC 101 mg/dL [facility] - Hematology and Cell countson 06-20-2024 HbA1c (Bld) [Mass fraction] 5.8 % [facility] No Panel InformationOrdered By: Beverly Clemons on 06-20-2024 [facility] Office Visiton 05-14-2024 Follow-up visit [id number] Arielle Cardoso robles R 1970 F Date Provider Department Center 05/14/2024 [facility] Family History Problem Relation Age of Onset Heart attack Father Family Status - Relation Status Age at Father Level of Service:59107 [place] OFFICE/OUTPATIENT ESTABLISHED MOD MDM 30 MIN Reason for Visit and Comments: Hypertension [644004] - Patient here for 2 mo follow up. She was started on lisinopril 10mg daily at last visit. She presented to the ED last month for abdominal pain. EKG was done and showed bradycardia. Palpitations [426427] - Not as bad, still has them Shortness of Breath [677420] - Improving Normal [facility] Office Visiton 03-19-2024 Follow-up visit [id number] Arielle Cardoso R 1970 F Date Provider Department Center 03/19/2024 [facility] Family History Problem Relation Age of Onset Heart attack Father Family Status - Relation Status Age at Father Level of Service:01809 [place] OFFICE/OUTPATIENT ESTABLISHED MOD MDM 30 MIN Normal [facility] Coding Summary.on 02-25-2024 Coding Summary. RTIOMydg66WTo2eIr+PG hlYWQ +MY9UPYPmA95erAUbxB9zX4UA TElOSywgQVBQTElOSyIgbmFtZ X9kyPQgYKDn IC8+RG3lXITiWolfrPLyz7O7g QP9D24jqs7eWRwajZF9IYCqSy Jkjambq3fkyYh8OIfeRnyjIjU t MNPmpA97MJD2fB95Wi03qUIzk JXnv7hkfXx1MgTzOUZqQUE4uS jcRAozj3FjWDPvT98piQKqv6R 6 WDCwfNpomYAwPbLcdJR0pU8dR Dfqkzxel4cactckJsr3su77aJ Cds8U4xAD0M3NrvzJ8RWJrbGC g NmewvBDVzF2ejuizy6uvdafmR jSyCEIzNKn9HId7QDFswBcqUf IhMO21MAS4VDEgfgUhI0OtWFV s yLavMdV8b5G7Ez8AF2NVMookJ 1VNTUFSWTwvdGQ+UJ12fb99M7 JnVyueBda4TGQtLZG1eYL7pP7 n SMQrUYbqr7E6uMA7F3FhnoVpq p2bm5chICDtOXlpX50grZZiz3 E6PQAjtVD3KCJwxDfqUaYwuR6 3 Oyc+EARplCwfa1VmAhmnc4dvt 4zyvWm6AtwzAVMjirGbkFbbIZ Z3c5BqRb6bXXBdlBU2zWU1eG1 i TvQtCmT1BRoiU119KnHhtIThQ zxxL67tA0VdoSE+GBCqKcm4HZ LpkMokGZ6gK9ViCZZkftzgwVW m uAljGS1hIIXszxidBUWupT0uT WIcP9u2GlObMiY6FSuiA3WbCH HbimnuWy16pG2tRuUbFiV5FRv u O3AnwuX3ETFgkARaYDukNMH2B 34bv3X6CYYzDSSxZAE7aBW1bZ 1hbGlnbjogbGVmdDsgdmVydGl j NNskWNjxU518SBKycWklUpEfF GluZyBEYXRlOiAgMDYvMjIvMj AyNDwvdGQ+WHLpDTT6cImoEXE n yPGiIFluPa5geXfpwMogBM4lN WZvhcppAUHloQ2kKJWqlTOmaS slMU5mPSVeyamwb784MmXmVRA 0 TWLqoDSaE5QsnW7uMlYoTMHiX SCuM7KvbPJcICscD041XMzwEk P9JCLenzLkV0CwQJYfqUtzEnD 0 s5P0Br1Xv7PprmgzA6JpoSQoQ lCcQwarPQc7K2PaQaunoTH+PC 75YZFtAL15ABb2CHI9tJufZNu i PQWuQ5CqoK7nWuJuOROuTEJtT yc+PHRhYmxlIHdpZHRoPScxMD AtHyRtdQslBZ7bEc3vAWZcRFH v qXmwmHEgRhMko8asSENyAQknQ Q1fmRryN0LbmSH0COJnn1h5Pj 72L68lR3BxmWK+ELMtlOH8cKH 0 xW6bLoVsSrH7QNabM285FkWrm BZzTinap9zjs3yhnSy1DfA0TQ XuruIrsSomAZA0f2NqLc80H18 s IHdpZHRoPSIxNSUiIHZhbGlnb l0usG8xLo9+CAGjyJH5iZA0jA 0mMjToDuL6WKyhA916AaOuuCV v Wwqpr5loo2jgsDh5MxYfREHeu eEsfFhfLJU6m8GjKp13N3MzmN ntr4KmBaz5ff83aGUtu5B5nHY 9 I8NmYMQedyynuDDtmGnpLR5tT JDumrmvPBSfhS4cGJNmD6l8Bk HlCiJ9RYmkF7OnlxB4PAFjyGE g TYZhoVKZuD4rdxhvi6xazgiuR dPfHMWoTQh6UDj7IHAtwUktXj GcHNM0JrE0REK2lIFjjC1zbDh n ghilvJ2uXjo+NOY5mPRmgACTL C6cHcutuUN+UWOySUP3yWiwDH wsSKAijN4jKKKaT5x9JbGpKwS 1 ERztE1YqcvL4PDXkvVYrGSEsi LXIwY6jgziem4nkqnumMiSaWI EbKKg3AJj6VWBnhWpyIeMaHQP 0 WlF6JIJ3yXLzcY6wsWiuxtepe G9wOyc+DfqmzBbbUWR8SYe4R1 KfOct4JKDzfDusKL7drQHxWWe u Ud9idJdlhCpxNZ8qXWQxcrdfl 451QeMll4gaZRPpfVEqPAtiBS B0Q38sz7I0NBKfPXEfAOF9hJR 4 oQ3yuYkbjlepuEOrjOtdwcUjd OucHDekDGnxL428HLBddCbdTb AmKZf0Y9KtUzb6XMOfrFflVM6 n eLNmMIscGx2ndCmdiLskTN4iJ SGrbqafw724ImWlt4hpMBLoeQ LiORezFWP0C27ox7K7AINjOIG w YBB7lJK3mC8wsExcxmzvuLRfq LycgsRogUfqOUznIOokT871XK DmzEomKbCdtFd9C5JtNid1GYS z kHqgFB7mcKMaIApdZo1jaGabg WiqUG3dTZUgayret810DpNtc8 onXRHahZTtUZbiYGN9J33ea1M 6 LZDwNDJmLHZ4tNG7mK5smTndk jogbGVmdDsgdmVydGljYWwtYW vgP654UDWspLuuXaYwnAdgriX g LHxzAHb6X8ZdYtqjfNQ+PC90Y QVkFG28dDYxrLNyb5yxfBr4Ln CeXBJgFLX3gKohBMefq0OhVDS t M85kcTApf6D8LCOjvNhglZLjX iSntUI7iI4uVBkqxvyem2lbow wvNqtpy4teya49zE21U08vFZr p SSQgPYEyZNJaBHLbfBtfja7tl G9wIi8+PWCkwWD1yIT8nU3aPE EgNnD9MRnhE147QwSkuFFqDln j y1ofw9ozcEv1XkM4BXKzlxYst DisONN1l7MrXk18T82xOXnzZC WjWZPdZLKyYVUrdDroap2odY9 w Ii8+YOLfuJZ9aTL3zP4iKpNwF aY6UFjmU430OxPheYLuSraeW2 8vV1TwkOJ+JPTgIsc5KKVmfKh s FN1aaUUlWSjrRt7rIIA1LoNvE zLrPGdbM0SyAYFcrniuizqspW Q7YIKwCSIuhI72Ug5hbFoqOCU w fKFBfS7qacqck7tmlepcDgKeV UEdVVp1RXs3YKAlfXwaAoPdSG N3FaV8JUY0uAJfrV8frEdsaur g tJ8cB1GaUIKckofqUt14gW5rG eRyRfA5XKubLwp+Z3KQOSojVR BUYAvONA5ORDQEOK83OZ90kEC g d6W1dZW8W4AkHAMezyvrarbuv IV5HFSpETFevK11lWFbTNckLt 7rj6L4n575NFOhEZIwlM76Qf6 u aSspQUWvxBAGyA9kdqwuk9qjd siwUmWnMQXoLTs9CRr6QNIfuP zkQoYjJVD1SbI8SFB8xDZtvD5 h nTzcdolpwI7nMqs+MDkvMjMvM Qg8RRznnWJ+EYHdJBU5sSmoPF qeJFCfbQ2pCYInU1y5PvMxVnL 1 ZVrvB3ZtJBLucdeiNs52eP1iT lItCmG1OCghX6TlfpT6RRKrdS HdAAxpQCQ2G60tc8D9FVVrKDN w VLM4qDW3nM0drZlnhixomSEbt QzwhtWsgSkkTSayFXfbQ641RI YogEmgMeWrNOttTPXqEH54FS0 8 xHYvk3X2rSA3Z7RqOPTzxomrp fuyjTU9MJCzBWQvzV86uDGmHZ boFd6jo4X3b943POKwRHIkuU5 7 Sx6lnHhfEVPiaAEFhD9znikgp 5ksnccyLlCpFOQzSMd9TDd3MT XaxNfmSpHbNGK2VnV5OKA4fED h hT9zdBfbutfmlH5pEug+RmVtY ItnBG90XQ46sEUkn7D0kVR1K5 VgYWZqhkhvdunxeJL5BSAtPJK w pI26nUHeVUwsZx6zm4O3j047D IClQSGzhP47Mg0poZxrLTTocC UDgX6lmsjrg2zmcfjcHnVnLBL w QXs0BUb2ZWPyxDytSmSxTNK9G hQ7BTX8iVVkqZ3wtMjgzvkprP 9wOyc+NIIgVVYhi5Jcr8ShVK0 0 IE58U1VkSkwhhBZjdGA+PHRhY mxlIHdpZHRoPScxMDAlJyBzdH glPS9sNd6fJDDpESFskGcznZK l LyEzo8ryCXHuHOntQY8epBzpK 4DcyWE6EAJcn6o7Qf43K73qN6 JvdXA+QCFrqAE7yFD8xD1kThS l TuK6FZhaI431JhDrqRAqIeowy 9rxq3urcDo5IjQeWNDryvSbkX xcYBO8e7MuCp77W46nFAzrWIL o DRKaVHAlKJHrsPsdaq1mrN3pQ i8+NTKkgPQ8mRY5uD0uChXtXa R3ISuuS904XcRwkBQtStjfR14 s S0WutKF+JAAoJgs8TKYkzFbuP D7kfSVjYMlfOg9qZXS5JmNrTn LlVPpcS6WeEVSsyrbgadylcWA 6 MBAdZBPngH92Cj6geCjxAd1iF GToXDM9TDGjdNBiM4SgoV9lGj XvXQQrNRTqF7YupTDzAJxaD14 6 OSmxTuU5IOQhngWaW0XxVBKir KzfJsH0r3T6Xv3DlXwzdYAhRL 9sQzRxPLv8S9FpXcd0YVLefAi s XP5muYAwOOijDx5uiAfgqDwkQ E7oVZBixmksw869NuBio3huOT QvuAAhVIbuRQT4G96eb6S1RMU w HBVyCOQ9pUZ3pZ0bgPuhisbrl GVmdDsgdmVydGljYWwtYWxpZ2 49BDNcuQtmAuMOBjd9O5TyVfj 0 BCElpWkdXV4zrZWrNRgpTl0dy DejjDsdNJ2dRKRuxarzs260Nk Pha3cjBHXxqHFlBZdyOWV1Z15 s i1C5DKDaCSEsVON3fZL4gX0pm GlnbjogbGVmdDsgdmVydGljYW dcUAzzK704GHBwpYvjVa0ERlw 8 F3WiQnr2WDGseXobXB3dvANgE MmeSw5vgIuunUmmNE2xGNZlgl wpu373XvDox6bsHIMgmNBpPPc t GUE4H93ix1I0IGVpSSIdOOV7e DR3sH5wrZbekmldrJZezJzmeh ScwFefARqtEKkrY726RSEwvHk n PlBheWVyOjwvdGQ+IE19yy19K 4HzCnrhWqz3OQJzEUM2dCW5iP 9mJKBnWTovg9B4gXJ0O7RhbiQ l gw6ub6yzNZTlA (more content not included)... Normal [facility] C Urineon 02-18-2024 Bacteria identified Cx Nom (U) Microbiology PROCEDURE: Urine Culture [R1] SOURCE: U CleanCatch BODY SITE: COLLECTED DATE/TIME: 02/16/2024 10:01 EDT RECEIVED DATE/TIME: 02/16/2024 14:33 EDT START DATE/TIME: 02/16/2024 14:33 EDT FREE TEXT SOURCE: Dasha DORAN, HOWIE-C, Dasha DORAN, HEATING UNIT MECHANIC-C, Yolanda X Yolanda X FINAL REPORTS [...] Locations R1: This test was performed at: [facility], [address] [place] [address], [address] , [place], [facility] Comment on above: Performed By: #### 2 [id number] #### [facility] [address] [place] [address] URINALYSISOrdered By: SYSTEM SYSTEM on 02-16-2024 Bilirubin [...] (U) Trace graded/LPF Normal Negati vegra ded/LPF [facility] UA Auto SS Nitrite Auto test strip Ql (U) Negative Normal Negativemg/ dL [facility] UA Auto SS pH (U) 5.5 *NA* (02/16/24 10:01 AM) Invalid Interpretation Code 5.0 - 9.0 [facility] UA Auto SS Protein Ql (U) Negative Normal Negativemg/ dL FT UA Auto SS RBC Ql (U) 0-3 graded/HPF Normal 0-3graded/H PF FT UA Auto SS Specific gravity (U) [Rel density] 1.021 *NA* (02/16/24 10:01 AM) Invalid Interpretation Code 1.005 - 1.030 [facility] UA Auto SS Urobilinogen (U) [Mass/Vol] Negative Normal Negativemg/ dL [facility] UA Auto SS WBC Auto (Urine sed) [#/Area] 0-5 graded/HPF Normal 0-5graded/H PF [facility] UA Auto SS URINALYSISOrdered By: Kimberly Santos on 02-16-2024 UA Spec Desc Clean Catch (02/16/24 10:01 AM) Normal [facility] UA Auto SS Urinalysis with Microon 02-03 Bilirubin Ql (U) Negative Normal Negative [facility] Comment on above: Performed By: #### 4 [id number] #### [facility] [address] [place] [address] Clarity (U) Clear Normal Clear [facility] Comment on above: Performed By: #### 4 [id number] #### [facility] [address] [place] [address] Color (U) Light-Yellow Normal Yellow [facility] Comment on above: Result Comment: Micr oscopic readings are only performed on those samples that meet specific criteria set forth by [facility]. Performed By: #### 4 [id number] #### [facility] [address] [place] [address] Epithelial cells.squamous Auto (Urine sed) [#/Area] 0-2 Invalid Interpretation Code [facility] Comment on above: Performed By: #### 4 [id number] #### [facility] [address] [place] [address] Glucose Ql (U) Negative Normal Negative [facility] Comment on above: Performed By: #### 4 [id number] #### [facility] [address] [place] [address] Hemoglobin Auto test strip (U) [Mass/Vol] 1+ mg/dL Abnormal Negative [facility] Comment on above: Performed By: #### 4 [id number] #### [facility] [address] [place] [address] Ketones Auto test strip Ql (U) Negative Normal Negative [facility] Comment on above: Performed By: #### 4 [id number] #### [facility] [address] [place] [address] Leukocyte esterase Auto test strip Ql (U) 75 Morgan/uL Abnormal Negative [facility] Comment on above: Performed By: #### 4 [id number] #### [facility] [address] [place] [address] Mucus Auto Ql (U) Trace Normal Negative [facility] Comment on above: Performed By: #### 4 [id number] #### [facility] [address] [place] [address] Nitrite Auto test strip Ql (U) Negative Normal Negative [facility] Comment on above: Performed By: #### 4 [id number] #### [facility] [address] [place] [address] pH (U) 5.5 [pH] Invalid Interpretation Code 5.0-9.0 [facility] Comment on above: Performed By: #### 4 [id number] #### [facility] [address] [place] [address] Protein Ql (U) Negative Normal Negative [facility] Comment on above: Performed By: #### 4 [id number] #### [facility] [address] [place] [address] RBC Ql (U) 0-3 Normal 0-3 [facility] Comment on above: Performed By: #### 4 [id number] #### [facility] [address] [place] [address] Specific gravity (U) [Rel density] 1.021 Invalid Interpretation Code 1.005-1.030 [facility] Comment on above: Performed By: #### 4 [id number] #### [facility] [address] [place] [address] Urobilinogen (U) [Mass/Vol] Negative Normal Negative [facility] Comment on above: Performed By: #### 4 [id number] #### [facility] [address] [place] [address] WBC Auto (Urine sed) [#/Area] 0-5 Normal 0-5 [facility] Comment on above: Performed By: #### 4 [id number] #### [facility] [address] [place] [address] Type of Urine collection method Clean Catch Normal [facility] Comment on above: Performed By: #### 4 [id number] #### [facility] [address] [place] [address] ANES POSTPROC EVALon 023 ANES POSTPROC EVAL HNO ID: [id number] Author: Carlota Jeffrey MD Service: ? Author Type: Anesthesiologist Type: Anesthesia Postprocedure Evaluation Filed: 08/25/2023 5:35 PM Note Text: POST ANESTHESIA EVALUATION NOTE : 1970 Procedure Summary Date: 08/25/23 Room / Location: Gastroenterology Anesthesia Start: 1444 Anesthesia Stop: 155 Procedure: EGD - THERAPEUTIC, EUS, OR TUBE INTERVENTIONS Diagnosis: Gastroparesis (OTHER) Scheduled Providers: Marques Bradley MD; Carlota Jeffrey MD; Daina Mcmillan APRN.THERAPEUTIC RECREATION LEADER Responsible Provider: Carlota Jeffrey MD Anesthesia Type: [...] August 25, 2023 TIME: 5:35 PM CSN: [id number] [facility] ANES PRE-OPon 08-25-2023 ANES PRE-OP HNO ID: [id number] Author: Carlota Jeffrey MD Service: ? Author [...] August 25, 2023 TIME: 11:46 AM CSN: [id number] [facility] HISTORY PHYSICALon 3 HISTORY PHYSICAL HNO ID: [id number] Author: Gavi Bourgeois MD Service: General Surgery [...] August 25, 2023 TIME: 6:57 AM [facility] NURSING PROGon 08-25-2023 NURSING PROG HNO ID: [id number] Author: Melody Walter RN Service: Nursing Author [...] None Electronically Signed By: Melody Walter RN [facility] NURSING PROG HNO ID: [id number] Author: Pamela Osuna RN Service: ? Author [...] Pamela Navarro RN In Department: GASTROENTEROLOGY [facility] CONSTANTINO CARDOSO ([id number]) 1970 F Date Time Provider Department 07/22/23 [...] Encounter Status:Closed by EVELYN BLACK on 07/22/23 [facility] ANES POSTPROC EVALon 023 ANES POSTPROC EVAL HNO ID: [id number] Author: Sly Carter MD Service: ? Author [...] Scheduled Providers: Marques Bradley MD; Amanda Bernard APRN.THERAPEUTIC RECREATION LEADER; Sly Carter MD Responsible Provider: Sly Carter [...] July 14, 2023 TIME: 12:26 PM CSN: [id number] [facility] ANES PRE-OPon 07-14-2023 ANES PRE-OP HNO ID: [id number] Author: Sly Carter MD Service: ? Author Type: Anesthesiologist Type: Anesthesia Preprocedure Evaluation Filed: 07/14/2023 9:19 AM Note Text: ANESTHESIOLOGY DAY OF SURGERY NOTE : 1970 Procedure Information Date/Time: 07/14/23929 Scheduled providers: Marques Bradley MD; Amanda Bernard APRN.THERAPEUTIC RECREATION LEADER; Sly Carter MD Procedure: EGD - THERAPEUTIC, [...] July 14, 2023 TIME: 9:11 AM CSN: [id number] [facility] EGD - THERAPEUTIC, EUS, OR T UBE INTERVENTIONSon 07-14-2023 [facility] HISTORY PHYSICALon 3 HISTORY PHYSICAL HNO ID: [id number] Author: Raúl Quintero MD Service: General Surgery [...] medications for this visit. REVIEW OF SYSTEMS: ADJUNCT PSYCHOLOGY FACULTY MEMBER: Negative for CVA, Negative for TIA [...] July 14, 2023 TIME: 9:40 AM [facility] NURSING PROGon 07-14-2023 NURSING PROG HNO ID: [id number] Author: Mónica Spaulding RN Service: Nursing Author Type: Registered Nurse Type: Nursing Progress Note Filed: 07/14/2023 11:21 AM Note Text: 1121: Dr. Mehrdad Carter paged : Patient Constantino Cardoso in post bed 10: Complaining of 10/10 abdominal pain (gas), mild nausea. Any further orders? Thanks! Mari Spaulding RN BSN [facility] NURSING PROG HNO ID: [id number] Author: Mónica Spaulding RN Service: Nursing Author [...] Signed By: Mónica Spaulding RN BSN [facility] NURSING PROG HNO ID: [id number] Author: Candace Jaramillo RN Service: ? Author [...] Candace Jaramillo RN In Department: GASTROENTEROLOGY [facility] SURGICAL PATHOLOGYon 023 ADDENDUM 1: [facility] Comment on above: Order Comment: Speci men Type: TISSUE SPECIMENOrdering Facility: [facility] Address: [address] [place] [address] Result Comment: Give n the background of chronic gastritis a Helicobacter pylori immunostain was performed on block A and is negative for Helicobacter pylori organisms. AEB 07/20/2023 Laboratory Developed Test (LDT) Disclaimer: Performance characteristics of immunohistochemical, immunofluorescent and chromogenic in-situ hybridization tests have been determined by the performing laboratory within [facility]???s Orestes Amador [facility] Pathology and Laboratory Medicine [place] ([facility], [facility], [facility], [facility], [facility], [facility], or [facility]) in a manner consistent with CLIA requirements. [...] at 9:30 AM Performed By: #### S ####[facility] LABCLIA [id number] [place] [address] [place] CASE REPORT [facility] Comment on above: Order Comment: Speci men Type: TISSUE SPECIMENOrdering Facility: [facility] Address: [address] [place] [address] Result Comment: Surg [facility] Pathology Report Case: [id number] Authorizing Provider: Marques Bradley MD Collected: 07/14/2023 10:42 AM Ordering Location: Gastroenterology Received: 07/14/2023 07:34 PM Pathologist: Pepper Zacarias MD Specimen: STOMACH BIOPSY, R/O H.Pylori Performed By: #### S ####[facility] [id number] [address] [place] DIAGNOSIS COMMENT Immunohistochemical stain for Helicobacter pylori is pending and will be reported as an addendum. [facility] Comment on above: Order Comment: Speci men Type: TISSUE SPECIMENOrdering Facility: [facility] Address: [address] [place] [address] Performed By: #### S ####[facility] [id number] [address] FINAL DIAGNOSIS [facility] Comment on above: Order Comment: Speci men Type: TISSUE SPECIMENOrdering Facility: [facility] Address: [address] [place] [address] Result Comment: Velma scott, biopsy: - Chronic inactive gastritis. See comment. AEB/dkclementina 07/18/2023 Performed By: #### S ####[facility] [id number] [address] OF [place] FINAL PERFORMING LAB Normal [facility] Comment on above: Order Comment: Speci men Type: TISSUE SPECIMENOrdering Facility: [facility] Address: [address] [place] [address] Result Comment: Diag nostic interpretation performed at [facility], [address] [address] CLIA# [id number] Shipping Support: Maurisio Ritchie M.D. Performed By: #### S ####[facility] [id number] [address] OF [place] GROSS DESCRIPTION [facility] Comment on above: Order Comment: Speci men Type: TISSUE SPECIMENOrdering Facility: [facility] Address: [address] [place] [address] Result Comment: A. S TOMACH BIOPSY Received in formalin are two pieces of hager, soft tissue aggregating to 0.5 x 0.2 x 0.2 cm. Totally submitted in one cassette. Two Gross examination performed at [facility], [address] July 14, 2023 11:10 PM Performed By: #### S ####[facility] [id number] [address] OF [facility] Magda 05-27-2023 CNPN Telephone (GENBMI) ----- CONSTANTINO CARDOSO ([id number]) 1970 F Date Time Provider Department 05/27/23 [...] Status:Closed by EVELYN BLACK on 05/27/23 [facility] GASTRIC EMPTYING SOLIDon 05-26-2023 PR GASTRIC EMPTYING SOLID * * *Final Report* * * DATE OF EXAM: May 26 2023 11:11AM [facility] 0017 - PR GASTRIC EMPTYING SOLID / PROCEDURE REASON: Nausea [...] RATE OF GASTRIC EMPTYING OF SOLID MEAL. Compounding Technician: PSCB Transcribe Date/Time: May 26 2023 11:18A Dictated by : SILVANO WELSH MD This examination was interpreted and the report reviewed and electronically signed by: SILVANO WELSH MD on May 26 2023 11:18AM EST [id number] [facility] CNNURSEon 05-25-2023 CNNURSE Nurse Visit (GASTMN) ----- ARIELLE CARDOSOROBLES ([id number]) 1970 F Date Time Provider Department 05/25/23 8:30 AM NURSE GI LAB 2 GASTMN During your visit today, we recorded the following information about you: Pedro Gonzalez LPN 05/25/2023 4:15 PM Signed Name: Constantino Cardoso CCF#: [id number] Date: 05/25/2023 ESOPHAGEAL MANOMETRY TEST Indication: Nausea [...] .Pedro Gonzalez LPN Referring Provider: MARQUES BRADLEY [[id number]] Allergies As of Date: 05/25/2023 Noted Allergy Reaction FLEXERIL (CYCLOBENZAPRINE) 04/28/2018 7 - Swelling PENICILLIN 04/28/2018 7 - Swelling Date Reviewed: 05/06/2023 Reviewed by: Judy Michaels MA - Fully Assessed Reason for Visit: Procedure [88] Cmt: Manometry Esophageal Visit Diagnosis:Nausea [R11.0] Order(s):MANOMETRY ESOPHAGEAL [24845YBW] Order #: [id number] Prescriptions as of 05/25/2023 - dicyclomine (BENTYL) [...] Encounter Status:Closed by PEDRO GONZALEZ on 05/25/23 [facility] Magda 05-16-2023 CNPN Telephone (GENBMI) ----- CONSTANTINO CARDOSO ([id number]) 1970 F Date Time Provider Department 05/16/23 [...] Encounter Status:Closed by EVELYN BLACK on 05/16/23 [facility] CNOVdu 05-06-2023 CNOV Office Visit (GENBMI ) ----- CONSTANTINO CARDOSO ([id number]) 1970 F Date Time Provider Department 05/06/23 [...] for internal providers or letter via the [employer] Postal Service for external providers. Chief Complaint: [...] Time: 8:15 AM Referring Provider: IMER CHERRY [[id number]] Allergies As of Date: 05/06/2023 Noted Allergy Reaction (more content not included)... [facility] CNPAlayna 05-02-2023 [facility] ----- CONSTANTINO CARDOSO ([id number]) 1970 F Date Time Provider Department 05/02/23 EVELYN BLACK During your visit today, we recorded the following information about you: Evelyn Black, RN 05/04/2023 1:55 PM Addendum BMI SPECIALTY CARE COORDINATION TELEPHONE ENCOUNTER Chief complaint AND duration dysphagia. Type of procedure: hernia repair hiatal with Dr. MORTENSEN in [place] February of 2019. Sending OP notes Nursing assessment (subjective/objective) . pain in chest area and getting worse, hard to breathe c/o nausea and oral intolerance, using miralax for BM Went to [place] ED March 2023 who told her she [...] HHR a year later @ OSH in [place] Recommendation: appt after records obtained, encouraged small [...] Encounter Status:Closed by EVELYN BLACK [facility]02[facility]23 [facility] (GENBMI) ----- CONSTANTINO CARDOSO ([id number]) 1970 F Date Time Provider Department 04/26/23 [...] on [facility]/23 [facility] Telephone (GENBMI) ----- CONSTANTINO CARDOSO ([id number]) 1970 F Date Time Provider Department 04/18/23 [...] Ma - Fully Assessed Reason for Visit: Biological Science Aide - Other [3602] Prescriptions as of 04/18/2023 [...] Encounter Status:Closed by EVELYN BLACK on 04/18/23 [facility] ----- CONSTANTINO CARDOSO ([id number]) 1970 F Date Time Provider Department 04/07/23 GUILLERMO MARTINEZ GASTSP During your visit today, we recorded the following information about you: Yancy Lopez 04/07/2023 1:16 PM Signed Referral rec'Jett Chisholm 04/11/2023 1:01 PM Signed Records are in scanned documents ready for review. Guillermo Martinez, DO 04/13/2023 10:02 AM Signed Post surgical [...] Status:Closed by YANCY LOPEZ on 04/07/23 [facility] Alanine aminotransferase [En zymatic activity/volume] in Serum or PlasmaOrdered By: Pete Thakkar on 03-23-2023 ALT [Catalytic activity/Vol] 11 U/L 7-52 [facility] Albumin [Mass/volume] in Ser um or Plasma by Bromocresol green (BCG) dye binding methoOrdered By: Pete Thakkar on 03-23-2023 Albumin BCG dye [Mass/Vol] 4.1 g/dL 3.5-5.7 [facility] Alkaline phosphatase [Enzyma tic activity/volume] in Serum or PlasmaOrdered By: Pete Thakkar on 03-23-2023 ALP [Catalytic activity/Vol] 115 U/L 34-104 [facility] Aspartate aminotransferase [ Enzymatic activity/volume] in Serum or PlasmaOrdered By: Pete Thakkar on 03-23-2023 AST [Catalytic activity/Vol] 15 U/L 13-39 [facility] Automated erythrocytes count in urine sediment (number/area)Ordered By: Pete Thakkar on 03-23-2023 RBC Auto (Urine sed) [#/Area] 0-1 [HPF] 0-4 [facility] Automated leukocytes count i n urine sediment (number/area)Ordered By: Pete Thakkar on 03-23-2023 WBC Auto (Urine sed) [#/Area] 0-1 [HPF] 0-4 [facility] Basophils Auto (Bld) [#/Vol] Ordered By: Pete Thakkar on 03-23-2023 Basophils (Bld) [#/Vol] 0.1 10*3/uL 0.0-0.2 [facility] Basophils/100 WBC Auto (Bld) Ordered By: Pete Thakkar on 03-23-2023 Basophils/100 WBC (Bld) 1.0 % . [facility] Bilirubin Test strip Ql (U)O rdered By: Pete Thakkar on 03-23-2023 Bilirubin Ql (U) Negative Negative [facility] Bilirubin.direct [Mass/volum e] in Serum or PlasmaOrdered By: Pete Thakkar on 03-23-2023 Bilirubin.direct [Mass/Vol] 0.10 mg/dL 0.03-0.18 [facility] Bilirubin.total [Mass/volume ] in Serum or PlasmaOrdered By: Pete Thakkar on 03-23-2023 Bilirubin [Mass/Vol] 0.3 mg/dL 0.3-1.0 [facility] Calcium [Mass/volume] in Ser um or PlasmaOrdered By: Pete Thakkar on 03-23-2023 Calcium [Mass/Vol] 9.0 mg/dL 8.6-10.3 [facility] Carbon dioxide, total [Moles /volume] in Serum or PlasmaOrdered By: Pete Thakkar on 03-23-2023 CO2 [Moles/Vol] 24.5 mmol/L 21.0-31.0 [facility] Chloride [Moles/volume] in S cristine or PlasmaOrdered By: Pete Thakkar on 03-23-2023 Chloride [Moles/Vol] 111 mmol/L 98-107 [facility] Color Auto (U)Ordered By: Shoaib Thakkar on 03-23-2023 Color (U) Yellow Yellow [facility] Creatinine [Mass/volume] in Serum or PlasmaOrdered By: Pete Thakkar on 03-23-2023 Creatinine [Mass/Vol] 0.72 mg/dL 0.60-1.20 [facility] Eosinophils Auto (Bld) [#/Vo l]Ordered By: Pete Thakkar on 03-23-2023 Eosinophils (Bld) [#/Vol] 0.3 10*3/uL 0.0-0.45 [facility] Eosinophils/100 WBC Auto (Bl d)Ordered By: Pete Thakkar on 03-23-2023 Eosinophils/100 WBC (Bld) 5.0 % . [facility] Erythrocyte distribution wid th Auto (RBC) [Ratio]Ordered By: Pete Thakkar on 03-23-2023 Erythrocyte distribution width (RBC) [Ratio] 13.6 % 11.9-15.3 [facility] Globulin Calc (S) [Mass/Vol] Ordered By: Pete Thakkar on 03-23-2023 Globulin (S) [Mass/Vol] 2.9 g/dL [facility] Glucose [Mass/volume] in Ser um or PlasmaOrdered By: Pete Thakkar on 03-23-2023 Glucose [Mass/Vol] 79 mg/dL 70-100 [facility] Comment on above: ADA recommended refe rence rangeRandom Glucose Reference Range is dependent on time and content of last meal. Glucose of more than 200 mg/dL in a nonstressed, ambulatory subject supports the diagnosis of Diabetes Mellitus. Hematocrit Auto (Bld) [Volum e fraction]Ordered By: Pete Thakkar on 03-23-2023 Hematocrit (Bld) [Volume fraction] 35.7 % 34.0-46.4 [facility] Hemoglobin [Mass/volume] in BloodOrdered By: Pete Thakkar on 03-23-2023 Hemoglobin (Bld) [Mass/Vol] 12.0 g/dL 11.8-15.4 [facility] Ketones Auto test strip (U) [Mass/Vol]Ordered By: Pete Thakkar on 03-23-2023 Ketones (U) [Mass/Vol] Negative Negative [facility] Laboratory - UrinalysisOrder ed By: Pete Thakkar on 03-23-2023 Hyaline casts LM Ql (Urine sed) None seen [LPF] 0-8 [facility] Leukocytes [#/volume] correc jun for nucleated erythrocytes in Blood by Automated counOrdered By: Pete Thakkar on 03-23-2023 WBC corrected for nucl RBC Auto (Bld) [#/Vol] 6.3 10*3/uL 3.8-11.6 [facility] Lipase [Enzymatic activity/v olume] in Serum or PlasmaOrdered By: Pete Thakkar on 03-23-2023 Lipase [Catalytic activity/Vol] 32.0 U/L 11.0-82.0 [facility] Lymphocytes Auto (Bld) [#/Vo l]Ordered By: Pete Thakkar on 03-23-2023 Lymphocytes (Bld) [#/Vol] 2.3 10*3/uL 1.00-4.8 [facility] Lymphocytes/100 WBC Auto (Bl d)Ordered By: Pete Thakkar on 03-23-2023 Lymphocytes/100 WBC (Bld) 36.1 % . [facility] MCH Auto (RBC) [Entitic mass ]Ordered By: Pete Thakkar on 03-23-2023 MCH (RBC) [Entitic mass] 29.2 pg 24.7-34.3 [facility] MCHC Auto (RBC) [Mass/Vol]Or dered By: Pete Thakkar on 03-23-2023 MCHC (RBC) [Mass/Vol] 33.7 g/dL 32.0-35.0 [facility] MCV Auto (RBC) [Entitic vol] Ordered By: Pete Thakkar on 03-23-2023 MCV (RBC) [Entitic vol] 86.7 fL 80-100 [facility] Monocyte distribution width [Entitic volume] in Blood by AutomatedOrdered By: Pete Thakkar on 03-23-2023 Monocyte distribution width Auto (Bld) [Entitic vol] 16.44 % 0.00-20.00 [facility] Monocytes Auto (Bld) [#/Vol] Ordered By: Pete Thakkar on 03-23-2023 Monocytes (Bld) [#/Vol] 0.5 10*3/uL 0.0-0.8 [facility] Monocytes/100 WBC Auto (Bld) Ordered By: Pete Thakkar on 03-23-2023 Monocytes/100 WBC (Bld) 7.7 % . [facility] Neutrophils Auto (Bld) [#/Vo l]Ordered By: Pete Thakkar on 03-23-2023 Neutrophils (Bld) [#/Vol] 3.2 10*3/uL 1.8-7.7 [facility] Neutrophils/100 WBC Auto (Bl d)Ordered By: Pete Thakkar on 03-23-2023 Neutrophils/100 WBC (Bld) 50.2 % . [facility] Nitrite Test strip Ql (U)Ord ered By: Pete Thakkar on 03-23-2023 Nitrite Ql (U) Negative Negative [facility] No Panel InformationOrdered By: Pete Thakkar on 03-23-2023 Estimated GFR (CKD-EPI) > 60.0 mL/Min [facility] Creatinine Clearance (Chem 105.27 [facility] Nucleated erythrocytes [Pres ence] in Blood by Automated countOrdered By: Pete Thakkar on 03-23-2023 Nucleated RBC Auto Ql (Bld) 0.1 /100{WBC} 0-0.5 [facility] Platelet mean volume Auto (B ld) [Entitic vol]Ordered By: Pete Thakkar on 03-23-2023 Platelet mean volume (Bld) [Entitic vol] 7.6 fL 6.3-10.7 [facility] Platelets Auto (Bld) [#/Vol] Ordered By: Pete Thakkar on 03-23-2023 Platelets (Bld) [#/Vol] 357 10*3/uL 150-450 [facility] Potassium [Moles/volume] in Serum or PlasmaOrdered By: Pete Thakkar on 03-23-2023 Potassium [Moles/Vol] 3.6 mmol/L 3.5-5.1 [facility] Protein Auto test strip (U) [Mass/Vol]Ordered By: Pete Thakkar on 03-23-2023 Protein (U) [Mass/Vol] Negative Negative [facility] Protein [Mass/volume] in Ser um or PlasmaOrdered By: Pete Thakkar on 03-23-2023 Protein [Mass/Vol] 7.0 g/dL 6.4-8.9 [facility] RBC Auto (Bld) [#/Vol]Ordere d By: Pete Thakkar on 03-23-2023 RBC (Bld) [#/Vol] 4.12 10*6/uL 3.60-5.00 [facility] Serum or plasma albumin/glob ulin mass ratioOrdered By: Pete Thakkar on 03-23-2023 Albumin/Globulin [Mass ratio] 1.4 {ratio} [facility] Serum or plasma anion gap de terminationOrdered By: Pete Thakkar on 03-23-2023 Anion gap [Moles/Vol] 10.1 mmol/L 6.0-15.0 [facility] Serum or plasma non-glucuron idated bilirubin measurement (mass/volume)Ordered By: Pete Thakkar on 03-23-2023 Bilirubin.indirect [Mass/Vol] 0.2 mg/dL [facility] Sodium [Moles/volume] in Ser um or PlasmaOrdered By: Pete Thakkar 03-23-2023 Sodium [Moles/Vol] 142 mmol/L 136-145 [facility] Specific gravity Auto test s trip (U) [Rel density]Ordered By: Pete Thakkar 03-23-2023 Specific gravity (U) [Rel density] 1.048 1.001-1.030 [facility] Squamous epithelial cells de tection in urine sediment by light microscopyOrdered By: Pete Thakkar 03-23-2023 Epithelial cells.squamous LM Ql (Urine sed) None seen [HPF] 0-2 [facility] Troponin I.cardiac [Mass/vol ume] in Serum or Plasma by Detection limit <= 0.01 ng/Ordered By: Pete Thakkar on 03-23-2023 Troponin I.cardiac DL <= 0.01 ng/mL [Mass/Vol] 12.2 pg/mL 0.0-15.0 [facility] Urea nitrogen [Mass/volume] in Serum or PlasmaOrdered By: Pete Thakkar on 03-23-2023 Urea nitrogen [Mass/Vol] 24 mg/dL 03-29 [facility] Urine bacteria detection by automated methodOrdered By: Pete Thakkar on 03-23-2023 Bacteria Auto Ql (U) 1+ None Seen [facility] Urine clarity by refractomet ry automatedOrdered By: Pete Thakkar on 03-23-2023 Clarity Refractometry automated (U) Clear Clear [facility] Urine glucose measurement by automated test strip (mass/volume)Ordered By: Pete Thakkar on 03-23-2023 Glucose Auto test strip (U) [Mass/Vol] Normal mg/dL Normal [facility] Urine hemoglobin detection b y automated test stripOrdered By: Pete Thakkar on 03-23-2023 Hemoglobin Auto test strip Ql (U) Trace Negative [facility] Urine leukocyte esterase det ection by automated test stripOrdered By: Pete Thakkar on 03-23-2023 Leukocyte esterase Auto test strip Ql (U) Negative Negative [facility] Urobilinogen Auto test strip (U) [Mass/Vol]Ordered By: Pete Thakkar on 03-23-2023 Urobilinogen (U) [Mass/Vol] Normal mg/dL Normal [facility] WBC Auto (Bld) [#/Vol]Ordere d By: Pete Thakkar on 03-23-2023 WBC (Bld) [#/Vol] 6.3 10*3/uL 3.8-11.6 [facility] pH Auto test strip (U)Ordere d By: Pete Thakkar on 03-23-2023 pH (U) 5.0 [pH] 5.0-9.0 [facility] Activated partial thrombopla stin time (aPTT) in platelet poor plasma by coagulation aOrdered By: Conner Griffith on 02-15-2023 aPTT Coag (PPP) [Time] 37.0 s 25.1-36.5 [facility] Alanine aminotransferase [En zymatic activity/volume] in Serum or PlasmaOrdered By: Conner Griffith on 02-15-2023 ALT [Catalytic activity/Vol] 13 U/L 7 [facility] Albumin [Mass/volume] in Ser um or Plasma by Bromocresol green (BCG) dye binding methoOrdered By: Conner Griffith on 02-15-2023 Albumin BCG dye [Mass/Vol] 4.3 g/dL 3.5-5.7 [facility] Alkaline phosphatase [Enzyma tic activity/volume] in Serum or PlasmaOrdered By: Conner Griffith on 02-15-2023 ALP [Catalytic activity/Vol] 124 U/L 34-104 [facility] Aspartate aminotransferase [ Enzymatic activity/volume] in Serum or PlasmaOrdered By: Conner Griffith on 02-15-2023 AST [Catalytic activity/Vol] 15 U/L 13-39 [facility] Basophils Auto (Bld) [#/Vol] Ordered By: Conner Griffith on 02-15-2023 Basophils (Bld) [#/Vol] 0.0 10*3/uL 0.0-0.2 [facility] Basophils/100 WBC Auto (Bld) Ordered By: Conner Griffith on 02-15-2023 Basophils/100 WBC (Bld) 0.6 % . [facility] Bilirubin.direct [Mass/volum e] in Serum or PlasmaOrdered By: Conner Griffith on 02-15-2023 Bilirubin.direct [Mass/Vol] 0.00 mg/dL 0.03-0.18 [facility] Comment on above: If the DBIL is less than 0.1, IBIL is not able to becalculated. Bilirubin.total [Mass/volume ] in Serum or PlasmaOrdered By: Conner Griffith on 02-15-2023 Bilirubin [Mass/Vol] 0.4 mg/dL 0.3-1.0 [facility] Calcium [Mass/volume] in Ser um or PlasmaOrdered By: Conner Griffith on 02-15-2023 Calcium [Mass/Vol] 9.3 mg/dL 8.6-10.3 [facility] Carbon dioxide, total [Moles /volume] in Serum or PlasmaOrdered By: Conner Griffith on 02-15-2023 CO2 [Moles/Vol] 25.3 mmol/L 21.0-31.0 [facility] Chloride [Moles/volume] in S cristine or PlasmaOrdered By: Conner Griffith on 02-15-2023 Chloride [Moles/Vol] 106 mmol/L 98-107 [facility] Creatinine [Mass/volume] in Serum or PlasmaOrdered By: Conner Griffith on 02-15-2023 Creatinine [Mass/Vol] 0.77 mg/dL 0.60-1.20 [facility] Eosinophils Auto (Bld) [#/Vo l]Ordered By: Conner Griffith on 02-15-2023 Eosinophils (Bld) [#/Vol] 0.2 10*3/uL 0.0-0.45 [facility] Eosinophils/100 WBC Auto (Bl d)Ordered By: Conner Griffith on 02-15-2023 Eosinophils/100 WBC (Bld) 4.0 % . [facility] Erythrocyte distribution wid th Auto (RBC) [Ratio]Ordered By: Conner Griffith on 02-15-2023 Erythrocyte distribution width (RBC) [Ratio] 13.5 % 11.9-15.3 [facility] Globulin Calc (S) [Mass/Vol] Ordered By: Conner Griffith on 02-15-2023 Globulin (S) [Mass/Vol] 3.0 g/dL [facility] Glucose [Mass/volume] in Ser um or PlasmaOrdered By: Conner Griffith on 02-15-2023 Glucose [Mass/Vol] 94 mg/dL 70-100 [facility] Comment on above: ADA recommended refe rence rangeRandom Glucose Reference Range is dependent on time and content of last meal. Glucose of more than 200 mg/dL in a nonstressed, ambulatory subject supports the diagnosis of Diabetes Mellitus. Hematocrit Auto (Bld) [Volum e fraction]Ordered By: Conner Griffith on 02-15-2023 Hematocrit (Bld) [Volume fraction] 38.4 % 34.0-46.4 [facility] Hemoglobin [Mass/volume] in BloodOrdered By: Conner Griffith on 02-15-2023 Hemoglobin (Bld) [Mass/Vol] 13.0 g/dL 11.8-15.4 [facility] Laboratory - CoagulationOrde red By: Conner Griffith on 02-15-2023 PT Coag (PPP) [Time] 11.7 s 9.0-12.9 [facility] Leukocytes [#/volume] correc jun for nucleated erythrocytes in Blood by Automated counOrdered By: Conner Griffith on 02-15-2023 WBC corrected for nucl RBC Auto (Bld) [#/Vol] 5.2 10*3/uL 3.8-11.6 [facility] Lipase [Enzymatic activity/v olume] in Serum or PlasmaOrdered By: Conner Griffith on 02-15-2023 Lipase [Catalytic activity/Vol] 19.0 U/L 11.0-82.0 [facility] Lymphocytes Auto (Bld) [#/Vo l]Ordered By: Conner Griffith on 02-15-2023 Lymphocytes (Bld) [#/Vol] 1.8 10*3/uL 1.00-4.8 [facility] Lymphocytes/100 WBC Auto (Bl d)Ordered By: Conner Griffith on 02-15-2023 Lymphocytes/100 WBC (Bld) 33.8 % . [facility] MCH Auto (RBC) [Entitic mass ]Ordered By: Conner Griffith on 02-15-2023 MCH (RBC) [Entitic mass] 29.4 pg 24.7-34.3 [facility] MCHC Auto (RBC) [Mass/Vol]Or dered By: Conner Griffith on 02-15-2023 MCHC (RBC) [Mass/Vol] 33.8 g/dL 32.0-35.0 [facility] MCV Auto (RBC) [Entitic vol] Ordered By: Conner Griffith on 02-15-2023 MCV (RBC) [Entitic vol] 86.8 fL 80-100 [facility] Monocyte distribution width [Entitic volume] in Blood by AutomatedOrdered By: Conner Griffith on 02-15-2023 Monocyte distribution width Auto (Bld) [Entitic vol] 18.21 % 0.00-20.00 [facility] Monocytes Auto (Bld) [#/Vol] Ordered By: Conner Griffith on 02-15-2023 Monocytes (Bld) [#/Vol] 0.3 10*3/uL 0.0-0.8 [facility] Monocytes/100 WBC Auto (Bld) Ordered By: Conner Griffith on 02-15-2023 Monocytes/100 WBC (Bld) 4.8 % . [facility] Neutrophils Auto (Bld) [#/Vo l]Ordered By: Conner Griffith on 02-15-2023 Neutrophils (Bld) [#/Vol] 3.0 10*3/uL 1.8-7.7 [facility] Neutrophils/100 WBC Auto (Bl d)Ordered By: Conner Griffith on 02-15-2023 Neutrophils/100 WBC (Bld) 56.8 % . [facility] No Panel InformationOrdered By: Conner Griffith on 02-15-2023 Estimated GFR (CKD-EPI) > 60.0 mL/Min [facility] Creatinine Clearance (Chem 98.01 [facility] Nucleated erythrocytes [Pres ence] in Blood by Automated countOrdered By: Conner Griffith on 02-15-2023 Nucleated RBC Auto Ql (Bld) 0.2 /100{WBC} 0-0.5 [facility] Platelet mean volume Auto (B ld) [Entitic vol]Ordered By: Conner Griffith on 02-15-2023 Platelet mean volume (Bld) [Entitic vol] 7.3 fL 6.3-10.7 [facility] Platelet poor plasma interna tional normalized ratio (INR) by coagulation assay (relatOrdered By: Conner Griffith on 02-15-2023 INR Coag (PPP) [Relative time] 1.0 {INR} [facility] Comment on above: INR Therapeutic Rang [...] 02-15-2023 Platelets (Bld) [#/Vol] 385 10*3/uL 150-450 [facility] Potassium [Moles/volume] in Serum or PlasmaOrdered By: Conner Griffith on 02-15-2023 Potassium [Moles/Vol] 3.9 mmol/L 3.5-5.1 [facility] Protein [Mass/volume] in Ser um or PlasmaOrdered By: Conner Griffith on 02-15-2023 Protein [Mass/Vol] 7.3 g/dL 6.4-8.9 [facility] RBC Auto (Bld) [#/Vol]Ordere d By: Conner Griffith on 02-15-2023 RBC (Bld) [#/Vol] 4.43 10*6/uL 3.60-5.00 [facility] Serum or plasma albumin/glob ulin mass ratioOrdered By: Conner Griffith on 02-15-2023 Albumin/Globulin [Mass ratio] 1.4 {ratio} [facility] Serum or plasma anion gap de terminationOrdered By: Conner Griffith on 02-15-2023 Anion gap [Moles/Vol] 12.6 mmol/L 6.0-15.0 [facility] Serum or plasma non-glucuron idated bilirubin measurement (mass/volume)Ordered By: Conner Griffith on 02-15-2023 Bilirubin.indirect [Mass/Vol] 0.4 mg/dL [facility] Sodium [Moles/volume] in Ser um or PlasmaOrdered By: Conner Griffith on 02-15-2023 Sodium [Moles/Vol] 140 mmol/L 136-145 [facility] Urea nitrogen [Mass/volume] in Serum or PlasmaOrdered By: Conner Griffith on 02-15-2023 Urea nitrogen [Mass/Vol] 14 mg/dL 7-25 [facility] WBC Auto (Bld) [#/Vol]Ordere d By: Conner Griffith on 02-15-2023 WBC (Bld) [#/Vol] 5.2 10*3/uL 3.8-11.6 [facility] MG MAMM SCREEN 3D MACARIO CADon 11-30-2022 MG MAMM SCREEN 3D MACARIO CAD Normal [facility] ER URINE PROFILEon Bilirubin Ql (U) Negative Normal NEGATIVE [facility] Comment on above: Performed By: #### E RUR ####[facility] [id number] [place], [place] [address]Dr. Tadeo Smyth Clarity (U) CLEAR Normal CLEAR [facility] Comment on above: Performed By: #### E RUR ####[facility] [address] [place], [place] [address]Dr. Tadeo Smyth Color (U) YELLOW Normal YELLOW [facility] Comment on above: Performed By: #### E RUR ####[facility] [address] [place], [place] [address]Dr. Tadeo Smyth ERUAHD A micrscopic examina tion will be performed if indicated. Normal [facility] Comment on above: Performed By: #### E RUR ####[facility] [address] [place], [place] [address]Dr. Tadeo Smyth Glucose Ql (U) Negative Normal NEGATIVE [facility] Comment on above: Performed By: #### E RUR ####[facility] [address] [place], [place] [address]Dr. Tadeo Smyth Hemoglobin Ql (U) TRACE-INTACT Abnormal NEGATIVE [facility] Comment on above: Performed By: #### E RUR ####[facility] Af[address] [place], [place] [address]Dr. Tadeo Smyth Ketones Ql (U) Negative Normal NEGATIVE [facility] Comment on above: Performed By: #### E RUR ####[facility] [address] [place], [place] [address]Dr. Tadeo Smyth LEUKOCYTES Negative Normal NEGATIVE [facility] Comment on above: Performed By: #### E RUR ####[facility] [address] [place], [place] [address]Dr. Tadeo Smyth Nitrite Ql (U) Negative Normal NEGATIVE [facility] Comment on above: Performed By: #### E RUR ####[facility] [address] [place], [place] [address]Dr. Tadeo Smyth pH (U) 6.0 [pH] Normal 5-9 [facility] Comment on above: Performed By: #### E RUR ####[facility] [address] [place] [address]Dr. Tadeo Smyth SPEC GRAVITY >=1.030 Abnormal 1.005-<=1.0 25 [facility] Comment on above: Performed By: #### E RUR ####[facility] [address] [place] [address]Dr. Tadeo Smyth UA PROTEIN Negative Normal NEGATIVE/ TRACE [facility] Comment on above: Performed By: #### E RUR ####[facility] [address] [place] [address]Dr. Tadeo Smyth UR MICRO IND NOT INDICATED Normal [facility] Comment on above: Performed By: #### E RUR ####[facility] [address] [place], [place] [address]Dr. Tadeo Smyth Urobilinogen Qn (U) 0.2 {Benito'U}/dL Normal 0.2 - 1. 0 [facility] Comment on above: Performed By: #### E RUR ####[facility] [address] [place], [place] [address]Dr. Tadeo Smyth XR ABD FLAT UP_PA Kasey 11-28 XR ABD FLAT UP_PA CH Normal [facility] AMYLASEon 11-27-2022 Amylase [Catalytic activity/Vol] 63 U/L Normal 25-115 [facility] Comment on above: Performed By: #### L IPA, VIJI, CMP ####[facility] [address] [place], [place] [address]Dr. Tadeo Smyth CBC AUTO DIFFon 11-27-2022 BASO # 0.0 103/ul Normal 0.0-0.1 [facility] Comment on above: Performed By: #### C BC ####[facility] [address] [place], [place] [address]Dr. Tadeo Smyth Basophils/100 WBC (Bld) 0.4 % Normal 0.2-2.0 [facility] Comment on above: Performed By: #### C BC ####[facility] [address] [place], [place] [address]Dr. Tadeo Smyth EO # 0.2 103/ul Normal 0.0-0.7 [facility] Comment on above: Performed By: #### C BC ####[facility] [address] [place] [address]Dr. Tadeo Smyth Eosinophils/100 WBC (Bld) 2.8 % Normal 0.9-7.0 [facility] Comment on above: Performed By: #### C BC ####[facility] [address] [place], [place] [address]Dr. Tadeo Smyth Erythrocyte distribution width (RBC) [Ratio] 13.2 % Normal 11.0-15.0 [facility] Comment on above: Performed By: #### C BC ####[facility] [address] [place], [place] [address]Dr. Tadeo Smyth Hematocrit (Bld) [Volume fraction] 42.6 % Normal 36.0-48.0 [facility] Comment on above: Performed By: #### C BC ####[facility] X[address] [place], [place] [address]Dr. Tadeo Smyth Hemoglobin (Bld) [Mass/Vol] 13.6 g/dL Normal 12.0-16.0 [facility] Comment on above: Performed By: #### C BC ####[facility] [address] [place], [place] [address]Dr. Tadeo Smyth IG # 0.02 10e3/ul Normal 0.00-0.03 [facility] Comment on above: Performed By: #### C BC ####[facility] [address] [place], [place] [address]Dr. Tadeo Smyth IG % 0.3 % Normal 0.0-0.5 [facility] Comment on above: Performed By: #### C BC ####[facility] [address] [place], [place] [address]Dr. Tadeo Smyth LYMPH # 2.2 103/ul Normal 1.2-3.8 [facility] Comment on above: Performed By: #### C BC ####[facility] [address] [place], [place] [address]Dr. Tadeo Haja Lymphocytes/100 WBC (Bld) 32.1 % Normal 20.5-60.0 [facility] Comment on above: Performed By: #### C BC ####[facility] [address] [place] [address]Dr. Tadeo Smyth MANUAL DIFF REQ NO Normal [facility] Comment on above: Performed By: #### C BC ####[facility] [address] [place] [id number]. Tadeo Smyth MCH (RBC) [Entitic mass] 29.6 pg Normal 26.7-34.0 [facility] Comment on above: Performed By: #### C BC ####[facility] [address] [place], [place] [address]Dr. Tadeo Smyth MCHC (RBC) [Mass/Vol] 31.9 g/dL Normal 29.9-35.2 [facility] Comment on above: Performed By: #### C BC ####[facility] [address] [place], [place] [address]Dr. Tadeo Smyth MCV (RBC) [Entitic vol] 92.6 fL Normal 81.0-99.0 [facility] Comment on above: Performed By: #### C BC ####[facility] [address] [place], [place] [address]DrNeo Smyth MONO # 0.2 103/ul Critically low 0.3-0.8 [facility] Comment on above: Performed By: #### C BC ####[facility] [address] [place], [place] [address]Dr. Tadeo Smyth Monocytes/100 WBC (Bld) 3.2 % Normal 1.7-12.0 [facility] Comment on above: Performed By: #### C BC ####[facility] [address] [place], [place] [address]DrNeo Smyth NEUT # 4.2 103/ul Normal 1.4-6.5 [facility] Comment on above: Performed By: #### C BC ####[facility] [address] [place], [place] [address]DrNeo Smyth Neutrophils/100 WBC (Bld) 61.2 % Normal 43.0-75.0 [facility] Comment on above: Performed By: #### C BC ####[facility] [address] [place] [address]Dr. Tadeo Haja Platelet mean volume (Bld) [Entitic vol] 9.0 fL Critically low 9.5-13.5 [facility] Comment on above: Performed By: #### C BC ####[facility] [address] [place] [address]Dr. Tadeo Haja PLT 392 103/ul Normal 150-450 [facility] Comment on above: Performed By: #### C BC ####[facility] [address] [place] [address]Dr. Margotnicole Haja RBC 4.60 106/ul Normal 4.20-5.40 [facility] Comment on above: Performed By: #### C BC ####[facility] [address] [place], [place] [address]Dr. Tadeo Smyth WBC 6.9 103/ul Normal 4.0-11.0 [facility] Comment on above: Performed By: #### C BC ####[facility] [address] [place], [place] [address]Dr. Margotnicole Smyth LIPASEon 11-27-2022 Lipase [Catalytic activity/Vol] 100.0 U/L Normal 73.0-393.0 [facility] Comment on above: Performed By: #### L VIJI HALL, CMP ####[facility] [address] [place], [place] [address]DrNeo Smyth PROF 14(COMP METB)on 023 Albumin [Mass/Vol] 3.5 g/dL Normal 3.4-5.0 [facility] Comment on above: Performed By: #### L VIJI HALL, CMP ####[facility] [address] [place] [address]Dr. Tadeo Smyth Albumin/Globulin [Mass ratio] 0.9 {ratio} Normal [facility] Comment on above: Performed By: #### L VIJI HALL, CMP ####[facility] [address] [place] [address]Dr. Tadeo Smyth ALP [Catalytic activity/Vol] 166 U/L Critically high 46-116 [facility] Comment on above: Performed By: #### L VIJI HALL, CMP ####[facility] [address] [place] [address]Dr. Tadeo Smyth ALT [Catalytic activity/Vol] 25 U/L Normal 14-59 [facility] Comment on above: Performed By: #### L VIJI HALL, CMP ####[facility] [address] [place], [place] [address]Dr. Tadeo Smyth Anion gap [Moles/Vol] 12.4 mmol/L Normal [facility] Comment on above: Performed By: #### L VIJI HALL, CMP ####[facility] [address] [place], [place] [address]Dr. Tadeo Smyth AST [Catalytic activity/Vol] 18 U/L Normal 15-37 [facility] Comment on above: Performed By: #### L VIJI HALL, CMP ####[facility] [address] [place], [place] [address]Dr. Tadeo Smyth Bilirubin [Mass/Vol] 0.3 mg/dL Normal 0.2-1.0 [facility] Comment on above: Performed By: #### L VIJI HALL, CMP ####[facility] [address] [place], [place] [address]Dr. Tadeo Smyth Calcium [Mass/Vol] 9.1 mg/dL Normal 8.5-10.1 [facility] Comment on above: Performed By: #### L VIJI HALL, CMP ####[facility] [address]hlvbi[address] [place], [place] [address]Dr. Tadeo Smyth Chloride [Moles/Vol] 104 mmol/L Normal 98-107 [facility] Comment on above: Performed By: #### L VIJI HALL, CMP ####[facility] Idzzgxogbh[address] [place], [place] [address]Dr. Tadeo Smyth CO2 [Moles/Vol] 25.0 mmol/L Normal 21.0-32.0 [facility] Comment on above: Performed By: #### L VIJI HALL, CMP ####[facility] [address] [place] [id number]. Tadeo Smyth Creatinine [Mass/Vol] 0.87 mg/dL Normal 0.55-1.02 [facility] Comment on above: Performed By: #### L ISABEL VIJI, CMP ####[facility] [address]xs[address] [place] [id number]. Tadeo Smyth EGFR-AF KYRGYZ >60 Normal >=60 [facility] Comment on above: Performed By: #### L ISABEL VIJI, CMP ####[facility] Edkxsaleqk[address] [place] [id number]. Tadeo Haja EGFR-NON AF KYRGYZ >60 Normal >=60 [facility] Comment on above: Performed By: #### L ISABEL VIJI, CMP ####[facility] [address]mt[address] [place] [address]Dr. Tadeo Haja Globulin (S) [Mass/Vol] 3.9 g/dL Normal [facility] Comment on above: Performed By: #### L VIJI HALL, CMP ####[facility] Uekprqwwsz[address] [place] [id number]. Tadeo Smyth Glucose [Mass/Vol] 169 mg/dL Critically high 74-106 [facility] Comment on above: Performed By: #### L ISABEL VIJI, CMP ####[facility] [address]ss[address]zuqljc[address] [place] [id number]. Tadeo Smyth Potassium [Moles/Vol] 3.4 mmol/L Critically low 3.5-5.1 [facility] Comment on above: Performed By: #### L ISABEL VIJI, CMP ####[facility] [address]zywspngv[address] [place] [id number]. Tadeo Haja Protein [Mass/Vol] 7.4 g/dL Normal 6.4-8.2 [facility] Comment on above: Performed By: #### L IPA VIJI, CMP ####[facility] [address]owm[address] [place] [id number]. Tadeo Smyth Sodium [Moles/Vol] 138 mmol/L Normal 136-145 [facility] Comment on above: Performed By: #### L IPA, VIJI, CMP ####[facility] [address]wu[address] [place] [address]Dr. Tadeo Smyth Urea nitrogen [Mass/Vol] 23.0 mg/dL Critically high 7.0-18.0 [facility] Comment on above: Performed By: #### L IPA, VIJI, CMP ####[facility] Hscjoszwdj[address] [place], [place] [address]Dr. Tadeo Smyth Urea nitrogen/Creatinine [Mass ratio] 26.4 mg/mg Normal [facility] Comment on above: Performed By: #### L IPA, VIJI, CMP ####[facility] Iqaivbfrtq[address] [place], [place] [address]Dr. Tadeo Smyth AMYLASEon 11-02-2022 Amylase [Catalytic activity/Vol] 40 U/L Normal 25-115 [facility] Comment on above: Performed By: #### L IPA, MG, CMP, VIJI ####[facility] Ykiqaeumbb[address] [place], [place] [address]Dr. Tadeo Smyth CBC AUTO DIFFon 11-02-2022 BASO # 0.0 103/ul Normal 0.0-0.1 [facility] Comment on above: Performed By: #### C BC ####[facility] Zvbesxeqmo[address] [place], [place] [address]Dr. Tadeo Smyth Basophils/100 WBC (Bld) 0.5 % Normal 0.2-2.0 [facility] Comment on above: Performed By: #### C BC ####[facility] Cvjuhvekph[address] [place], [place] [address]Dr. Tadeo Smyth EO # 0.1 103/ul Normal 0.0-0.7 [facility] Comment on above: Performed By: #### C BC ####[facility] Dbmllmcesk6[address] [place], [place] [address]Dr. Tadeo Smyth Eosinophils/100 WBC (Bld) 2.8 % Normal 0.9-7.0 [facility] Comment on above: Performed By: #### C BC ####[facility] [address] [place] [address]Dr. Tadeo Smyth Erythrocyte distribution width (RBC) [Ratio] 13.3 % Normal 11.0-15.0 [facility] Comment on above: Performed By: #### C BC ####[facility] Evwnlbjcxg[address] [place] [address]Dr. Tadeo Smyth Hematocrit (Bld) [Volume fraction] 35.6 % Critically low 36.0-48.0 [facility] Comment on above: Performed By: #### C BC ####[facility] Zoiyvlwbmn[address] [place], [place] [address]Dr. Tadeo Smyth Hemoglobin (Bld) [Mass/Vol] 11.3 g/dL Critically low 12.0-16.0 [facility] Comment on above: Performed By: #### C BC ####[facility] Qlsmndmsjd65[address] [place], [place] [address]Dr. Tadeo Smyth IG # 0.01 10e3/ul Normal 0.00-0.03 [facility] Comment on above: Performed By: #### C BC ####[facility] Zbgeewqrtz[address] [place], [place] [address]Dr. Margotnicole Smyth IG % 0.2 % Normal 0.0-0.5 [facility] Comment on above: Performed By: #### C BC ####[facility] Aiwxylzyjj[address] [place], [place] [address]Dr. Tadeo Smyth LYMPH # 1.5 103/ul Normal 1.2-3.8 [facility] Comment on above: Performed By: #### C BC ####[facility] Echxgkwnfd[address] [place], [place] [address]Dr. Margotnicole Smyth Lymphocytes/100 WBC (Bld) 34.9 % Normal 20.5-60.0 [facility] Comment on above: Performed By: #### C BC ####[facility] Hbaqpalafe[address] [place], [place] [address]Dr. Margotnicole Smyth MANUAL DIFF REQ NO Normal [facility] Comment on above: Performed By: #### C BC ####[facility] Fsc[address]wz[address] [place] [address]Dr. Tadeo Smyth MCH (RBC) [Entitic mass] 28.8 pg Normal 26.7-34.0 [facility] Comment on above: Performed By: #### C BC ####[facility] Ryndfdcjwv37[address] [place] [address]Dr. Tadeo Smyth MCHC (RBC) [Mass/Vol] 31.7 g/dL Normal 29.9-35.2 [facility] Comment on above: Performed By: #### C BC ####[facility] Nebtzpycfl4[address] [place], [place] [address]Dr. Tadeo Smyth MCV (RBC) [Entitic vol] 90.8 fL Normal 81.0-99.0 [facility] Comment on above: Performed By: #### C BC ####[facility] Nwmnvtxpld[address] [place], [place] [address]Dr. Tadeo Haja MONO # 0.3 103/ul Normal 0.3-0.8 [facility] Comment on above: Performed By: #### C BC ####[facility] Kihwxoanzv[address] [place], [place] [address]Dr. Tadeo Haja Monocytes/100 WBC (Bld) 6.9 % Normal 1.7-12.0 [facility] Comment on above: Performed By: #### C BC ####[facility] Kzbdffhoid0[address] [place], [place] [address]Dr. Tadeo Smyth NEUT # 2.4 103/ul Normal 1.4-6.5 [facility] Comment on above: Performed By: #### C BC ####[facility] Eaapafelih[address] [place], [place] [address]Dr. Tadeo Haja Neutrophils/100 WBC (Bld) 54.7 % Normal 43.0-75.0 [facility] Comment on above: Performed By: #### C BC ####[facility] Srmwmuslqp[address] [place], [place] [address]Dr. Tadeo Haja Platelet mean volume (Bld) [Entitic vol] 8.9 fL Critically low 9.5-13.5 [facility] Comment on above: Performed By: #### C BC ####[facility] Rsaxxerwho[address] [place] [id number]. Tadeo Smyth PLT 316 103/ul Normal 150-450 [facility] Comment on above: Performed By: #### C BC ####[facility] Mviikwamon[address] [place] [address]Dr. Tadeo Smyth RBC 3.92 106/ul Critically low 4.20-5.40 [facility] Comment on above: Performed By: #### C BC ####[facility] [address]vmzbjl[address] [place] [id number]. Tadeo Smyth WBC 4.4 103/ul Normal 4.0-11.0 [facility] Comment on above: Performed By: #### C BC ####[facility] [address] [place] [address]Dr. Tadeo Smyth H PYLORI ANTIBODY IGGon 10-07 H. PYLORI IGG ABS 0.12 Index Value Normal 0.00-0.79 [facility] Comment on above: Result Comment: Nega tive <0.80 Equivocal 0.80 - 0.89 Positive >0.89 Performed By: #### H PYLLC ####[facility] [address]hw[address] [place] [address]Dr. Tadeo Smyth LIPASEon 11-02-2022 Lipase [Catalytic activity/Vol] 58.0 U/L Critically low 73.0-393.0 [facility] Comment on above: Performed By: #### L IPA, MG, CMP, VIJI ####[facility] [address] [place] [address]Dr. Tadeo Smyth MAGNESIUMon 11-02-2022 Magnesium [Mass/Vol] 1.8 mg/dL Normal 1.8-2.4 [facility] Comment on above: Performed By: #### L IPA, MG, CMP, VIJI ####[facility] S[address]trut[address] [place] [address]Dr. Tadeo Smyth PROF 14(COMP METB)on 023 Albumin [Mass/Vol] 3.2 g/dL Critically low 3.4-5.0 [facility] Comment on above: Performed By: #### L IPA, MG, CMP, VIJI ####[facility] V[address]om[address]hs[address] [place] [address]Dr. Tadeo Smyth Albumin/Globulin [Mass ratio] 1.0 {ratio} Normal [facility] Comment on above: Performed By: #### L IPA, MG, CMP, VIJI ####[facility] Ams[address]awpt[address] [place] [address]Dr. Tadeo Smyth ALP [Catalytic activity/Vol] 138 U/L Critically high 46-116 [facility] Comment on above: Performed By: #### L IPA, MG, CMP, VIJI ####[facility] Loennrznba[address] [place], [place] [address]Dr. Tadeo Smyth ALT [Catalytic activity/Vol] 22 U/L Normal 14-59 [facility] Comment on above: Performed By: #### L IPA, MG, CMP, VIJI ####[facility] Wbfuxlvvpr[address] [place], [place] [address]Dr. Tadeo Smyth Anion gap [Moles/Vol] 10.0 mmol/L Normal [facility] Comment on above: Performed By: #### L IPA, MG, CMP, VIJI ####[facility] Zagtxdawfj[address] [place], [place] [address]Dr. Tadeo Smyth AST [Catalytic activity/Vol] 18 U/L Normal 15-37 [facility] Comment on above: Performed By: #### L IPA, MG, CMP, VIJI ####[facility] Mmqfwislhd[address] [place], [place] [address]Dr. Tadeo Smyth Bilirubin [Mass/Vol] 0.5 mg/dL Normal 0.2-1.0 [facility] Comment on above: Performed By: #### L IPA, MG, CMP, VIJI ####[facility] Ipdhocmxui[address] [place], [place] [address]Dr. Tadeo Smyth Calcium [Mass/Vol] 8.9 mg/dL Normal 8.5-10.1 [facility] Comment on above: Performed By: #### L IPA, MG, CMP, VIJI ####[facility] Sm[address]wgfpjy[address] [place], [place] [address]Dr. Tadeo Smyth Chloride [Moles/Vol] 107 mmol/L Normal 98-107 [facility] Comment on above: Performed By: #### L IPA, MG, CMP, VIJI ####[facility] Yk[address]psclws[address] [place] [address]Dr. Tadeo Smyth CO2 [Moles/Vol] 28.8 mmol/L Normal 21.0-32.0 [facility] Comment on above: Performed By: #### L IPA, MG, CMP, VIJI ####[facility] Mhwyofgvyn[address] [place], [place] [address]Dr. Tadeo Smyth Creatinine [Mass/Vol] 0.74 mg/dL Normal 0.55-1.02 [facility] Comment on above: Performed By: #### L IPA, MG, CMP, VIJI ####[facility] Rggycvxhhe[address] [place], [place] [address]Dr. Tadeo Smyth EGFR-AF KYRGYZ >60 Normal >=60 [facility] Comment on above: Performed By: #### L IPA, MG, CMP, VIJI ####[facility] Uyjhpnpucg[address] [place], [place] [address]Dr. Tadeo Smyth EGFR-NON AF KYRGYZ >60 Normal >=60 [facility] Comment on above: Performed By: #### L IPA, MG, CMP, VIJI ####[facility] J[address]ymkepp[address] [place] [address]Dr. Tadeo Smyth Globulin (S) [Mass/Vol] 3.3 g/dL Normal [facility] Comment on above: Performed By: #### L IPA, MG, CMP, VIJI ####[facility] Ungedeuost[address] [place] [address]Dr. Tadeo Smyth Glucose [Mass/Vol] 96 mg/dL Normal 74-106 [facility] Comment on above: Performed By: #### L IPA, MG, CMP, VIJI ####[facility] V[address]wsrcgeoy[address] [place] [address]Dr. Tadeo Smyth Potassium [Moles/Vol] 3.8 mmol/L Normal 3.5-5.1 [facility] Comment on above: Performed By: #### L IPA, MG, CMP, VIJI ####[facility] Pxfpv[address]vzq[address] [place], [place] [address]Dr. Tadeo Smyth Protein [Mass/Vol] 6.5 g/dL Normal 6.4-8.2 [facility] Comment on above: Performed By: #### L IPA, MG, CMP, VIJI ####[facility] Suysuxmdcp[address] [place], [place] [address]Dr. Tadeo Smyth Sodium [Moles/Vol] 142 mmol/L Normal 136-145 [facility] Comment on above: Performed By: #### L IPA, MG, CMP, VIJI ####[facility] Slgcyfpqkm[address] [place], [place] [address]Dr. Tadeo Smyth Urea nitrogen [Mass/Vol] 8.0 mg/dL Normal 7.0-18.0 [facility] Comment on above: Performed By: #### L IPA, MG, CMP, VIJI ####[facility] Yatljdfjly[address] [place], [place] [address]Dr. Tadeo Smyth Urea nitrogen/Creatinine [Mass ratio] 10.8 mg/mg Normal [facility] Comment on above: Performed By: #### L IPA, MG, CMP, VIJI ####[facility] Pgxsctnrkj[address] [place], [place] [address]Dr. Tadeo Smyth AMMONIAon 11-01-2022 Ammonia (P) [Moles/Vol] 18 umol/L Normal 11-32 [facility] Comment on above: Performed By: #### A MM ####[facility] Zscnnbugxj[address] [place], [place] [address]Dr. Tadeo Smyth AMYLASEon 11-01-2022 Amylase [Catalytic activity/Vol] 43 U/L Normal 25-115 [facility] Comment on above: Performed By: #### M G, VIJI, LIPA, CMP ####[facility] Lkvkfxajsf[address] [place], [place] [address]Dr. Tadeo Smyth CBC AUTO DIFFon 11-01-2022 BASO # 0.0 103/ul Normal 0.0-0.1 [facility] Comment on above: Performed By: #### C BC ####[facility] R[address]aj[address] [place] [id number]. Tadeo Smyth Basophils/100 WBC (Bld) 0.6 % Normal 0.2-2.0 [facility] Comment on above: Performed By: #### C BC ####[facility] [address]qbns[address]ch[address] [place], [place] [address]Dr. Tadeo Smyth EO # 0.1 103/ul Normal 0.0-0.7 [facility] Comment on above: Performed By: #### C BC ####[facility] Bhwkyihheo[address] [place], [place] [address]Dr. Tadeo Smyth Eosinophils/100 WBC (Bld) 1.5 % Normal 0.9-7.0 [facility] Comment on above: Performed By: #### C BC ####[facility] Jftxvglime[address] [place], [place] [address]Dr. Tadeo Smyth Erythrocyte distribution width (RBC) [Ratio] 13.5 % Normal 11.0-15.0 [facility] Comment on above: Performed By: #### C BC ####[facility] Ciihafyync[address] [place], [place] [address]Dr. Tadeo Smyth Hematocrit (Bld) [Volume fraction] 37.7 % Normal 36.0-48.0 [facility] Comment on above: Performed By: #### C BC ####[facility] [address]icrruzjte[address] [place], [place] [address]Dr. Tadeo Smyth Hemoglobin (Bld) [Mass/Vol] 12.5 g/dL Normal 12.0-16.0 [facility] Comment on above: Performed By: #### C BC ####[facility] K[address]xuubjhhz[address] [place], [place] [address]Dr. Tadeo Smyth IG # 0.02 10e3/ul Normal 0.00-0.03 [facility] Comment on above: Performed By: #### C BC ####[facility] [address]iexjzbipl[address] [place], [place] [address]Dr. Tadeo Smyth IG % 0.4 % Normal 0.0-0.5 [facility] Comment on above: Performed By: #### C BC ####[facility] [address]vdrtexul[address] [place] [address]Dr. Tadeo Smyth LYMPH # 1.3 103/ul Normal 1.2-3.8 [facility] Comment on above: Performed By: #### C BC ####[facility] Yldpbjmxgh[address] [place] [address]Dr. Tadeo Haja Lymphocytes/100 WBC (Bld) 23.9 % Normal 20.5-60.0 [facility] Comment on above: Performed By: #### C BC ####[facility] [address]lcyktcflx[address] [place] [address]Dr. Margotnicole Smyth MANUAL DIFF REQ NO Normal [facility] Comment on above: Performed By: #### C BC ####[facility] Smpspxltyp[address] [place] [address]Dr. Tadeo Haja MCH (RBC) [Entitic mass] 29.8 pg Normal 26.7-34.0 [facility] Comment on above: Performed By: #### C BC ####[facility] Abkizeiebp[address] [place] [address]Dr. Tadeo Smyth MCHC (RBC) [Mass/Vol] 33.2 g/dL Normal 29.9-35.2 [facility] Comment on above: Performed By: #### C BC ####[facility] E[address]qprbbq[address] [place] [address]Dr. Tadeo Haja MCV (RBC) [Entitic vol] 89.8 fL Normal 81.0-99.0 [facility] Comment on above: Performed By: #### C BC ####[facility] Rvvirufbcz[address] [place] [address]Dr. Tadeo Smyth MONO # 0.3 103/ul Normal 0.3-0.8 [facility] Comment on above: Performed By: #### C BC ####[facility] Iuukeafzzs[address] [place] [address]Dr. Tadeo Haja Monocytes/100 WBC (Bld) 5.2 % Normal 1.7-12.0 [facility] Comment on above: Performed By: #### C BC ####[facility] [address]rhxfqh[address] [place] [address]Dr. Tadeo Smyth NEUT # 3.6 103/ul Normal 1.4-6.5 [facility] Comment on above: Performed By: #### C BC ####[facility] Edcfifzqeg74[address] [place] [address]Dr. Tadeo Smyth Neutrophils/100 WBC (Bld) 68.4 % Normal 43.0-75.0 [facility] Comment on above: Performed By: #### C BC ####[facility] [address]vykknchg[address] [place], [place] [address]Dr. Tadeo Smyth Platelet mean volume (Bld) [Entitic vol] 9.0 fL Critically low 9.5-13.5 [facility] Comment on above: Performed By: #### C BC ####[facility] R[address]orkofk[address] [place], [place] [address]Dr. Tadeo Smyth PLT 356 103/ul Normal 150-450 [facility] Comment on above: Performed By: #### C BC ####[facility] Lwxppnmyns[address] [place], [place] [address]Dr. Tadeo Smyth RBC 4.20 106/ul Normal 4.20-5.40 [facility] Comment on above: Performed By: #### C BC ####[facility] [address]bwfqguk[address] [place], [place] [address]Dr. Tadeo Smyth WBC 5.2 103/ul Normal 4.0-11.0 [facility] Comment on above: Performed By: #### C BC ####[facility] Acjwpoqoru[address] [place], [place] [address]Dr. Tadeo Smyth CT ABD/PELV W CONon 11-01-19 CT ABD/PELV W CON Normal [facility] CULTURE BLOODon 11-01-2022 Microscopic examination of blood, culture Culture Observations: NO GROWTH AT 5 DAYS. Isolate 1 BC_BA_NA Normal [facility] Comment on above: Performed By: #### B LDCX2 ####[facility] Dhcpinwcor[address] [place], [place] [address]Dr. Tadeo Smyth Performed By: #### B LDCX1 ####[facility] Qiwmvrssfd[address] [place] [id number]. Tadeo Smyth CULTURE URINEon 11-01-2022 CULTURE URINE Culture Observations : LIGHT GROWTH OF MIXED GENITAL SINTIA. NO POTENTIAL PATHOGENS SEEN. Normal [facility] Comment on above: Performed By: #### U RCX ####[facility] [address] [place] [id number]. Tadeo Smyth Covid-19 PCR (CVDTB)on 10-07 SARS-CoV-2 (COVID-19) RNA CHEN+probe Ql (Unsp spec) Not detected Normal NOT DETECTED [facility] Comment on above: Result [...] for this test is supported by the [place] of Health and Human Service's declaration that [...] be used). Performed By: #### C VDTBH ####[facility] Wmddcunizj[address] [place] [id number]. Tadeo Smyth LACTATE/LACTIC ACIDon 2022 Lactate [Moles/Vol] 0.7 mmol/L Normal 0.4-1.9 [facility] Comment on above: Performed By: #### L ACT ####[facility] Hscokqhbwj[address] [place] [id number] Smyth LIPASEon 11-01-2022 Lipase [Catalytic activity/Vol] 58.0 U/L Critically low 73.0-393.0 [facility] Comment on above: Performed By: #### M G, VIJI, LIPA, CMP ####[facility] [address]fzazzolkp[address] [place] [address]Dr. Tadeo Smyth MAGNESIUMon 11-01-2022 Magnesium [Mass/Vol] 2.0 mg/dL Normal 1.8-2.4 [facility] Comment on above: Performed By: #### M G, VIJI, LIPA, CMP ####[facility] Zrqpahofkk[address] [place] [address]Dr. Tadeo Smyth PROF 14(COMP METB)on 023 Albumin [Mass/Vol] 3.6 g/dL Normal 3.4-5.0 [facility] Comment on above: Performed By: #### M G, VIJI, LIPA, CMP ####[facility] Yfxvzmqpez35[address] [place] [address]Dr. Tadeo Smyth Albumin/Globulin [Mass ratio] 1.0 {ratio} Normal [facility] Comment on above: Performed By: #### M G, VIJI, LIPA, CMP ####[facility] [address]rw[address]rmazw[address] [place] [address]Dr. Tadeo Smyth ALP [Catalytic activity/Vol] 164 U/L Critically high 46-116 [facility] Comment on above: Performed By: #### M G, VIJI, LIPA, CMP ####[facility] Mrzkiujhnn34[address] [place] [address]Dr. Tadeo Smyth ALT [Catalytic activity/Vol] 22 U/L Normal 14-59 [facility] Comment on above: Performed By: #### M G, VIJI, LIPA, CMP ####[facility] Rbobcgslst36[address] [place] [address]Dr. Tadeo Smyth Anion gap [Moles/Vol] 11.5 mmol/L Normal [facility] Comment on above: Performed By: #### M G, VIJI, LIPA, CMP ####[facility] [address]fzndkgda[address] [place] [address]Dr. Tadeo Smyth AST [Catalytic activity/Vol] 17 U/L Normal 15-37 [facility] Comment on above: Performed By: #### M Ayan, VIJI, LIPA, CMP ####[facility] Sli[address]fepce[address] [place] [address]Dr. Tadeo Smyth Bilirubin [Mass/Vol] 0.4 mg/dL Normal 0.2-1.0 [facility] Comment on above: Performed By: #### M Ayan, VIJI, LIPA, CMP ####[facility] [address]sv[address]utcbm[address] [place] [address]Dr. Tadeo Smyth Calcium [Mass/Vol] 9.1 mg/dL Normal 8.5-10.1 [facility] Comment on above: Performed By: #### M Ayan, VIJI, LIPA, CMP ####[facility] [address]cjn[address] [place], [place] [address]Dr. Tadeo Smyth Chloride [Moles/Vol] 105 mmol/L Normal 98-107 [facility] Comment on above: Performed By: #### M VIJI Botello LIPA, CMP ####[facility] [address]wn[address] [place], [place] [address]Dr. Yilan Smyth CO2 [Moles/Vol] 27.6 mmol/L Normal 21.0-32.0 [facility] Comment on above: Performed By: #### M VIJI Botello, LIPA, CMP ####[facility] [address] [place], [place] [address]Dr. Tadeo Smyth Creatinine [Mass/Vol] 0.72 mg/dL Normal 0.55-1.02 [facility] Comment on above: Performed By: #### M VIJI Botello, LIPA, CMP ####[facility] [address] [place] [address]Dr. Yilan Smyth EGFR-AF KYRGYZ >60 Normal >=60 [facility] Comment on above: Performed By: #### M VIJI Botello, LIPA, CMP ####[facility] [address] [place] [address]Dr. Yilan Smyth EGFR-NON AF KYRGYZ >60 Normal >=60 [facility] Comment on above: Performed By: #### M Ayan, VIJI, LIPA, CMP ####[facility] [address] [place] [address]Dr. Tadeo Smyth Globulin (S) [Mass/Vol] 3.6 g/dL Normal [facility] Comment on above: Performed By: #### M G, VIJI, LIPA, CMP ####[facility] [address] [place] [address]Dr. Tadeo Smyth Glucose [Mass/Vol] 100 mg/dL Normal 74-106 [facility] Comment on above: Performed By: #### M G, VIJI, LIPA, CMP ####[facility] [address] [place] [address]Dr. Tadeo Smyth Potassium [Moles/Vol] 4.1 mmol/L Normal 3.5-5.1 [facility] Comment on above: Performed By: #### M G, VIJI, LIPA, CMP ####[facility] Is[address]ocy[address] [place], [place] [address]Dr. Tadeo Smyth Protein [Mass/Vol] 7.2 g/dL Normal 6.4-8.2 [facility] Comment on above: Performed By: #### M G, VIJI, LIPA, CMP ####[facility] [address] [place], [place] [address]Dr. Tadeo Smyth Sodium [Moles/Vol] 140 mmol/L Normal 136-145 [facility] Comment on above: Performed By: #### M G, VIJI, LIPA, CMP ####[facility] V[address]emlpf[address] [place], [place] [address]Dr. Tadeo Smyth Urea nitrogen [Mass/Vol] 15.0 mg/dL Normal 7.0-18.0 [facility] Comment on above: Performed By: #### M G, VIJI, LIPA, CMP ####[facility] Gxdkh[address]fsp[address] [place], [place] [address]Dr. Tadeo Smyth Urea nitrogen/Creatinine [Mass ratio] 20.8 mg/mg Normal [facility] Comment on above: Performed By: #### M G, VIJI, LIPA, CMP ####[facility] [address] [place], [place] [address]Dr. Tadeo Smyth UA RANDOM W/MICROSCOPICon BACTERIA TRACE Abnormal NONE SEEN [facility] Comment on above: Performed By: #### U AMIC ####[facility] Fslom[address] [place], [place] [address]Dr. Tadeo Smyth Bilirubin Ql (U) Negative Normal NEGATIVE [facility] Comment on above: Performed By: #### U AMIC ####[facility] Rxlnacryym[address] [place], [place] [address]Dr. Tadeo Smyth CAST NONE SEEN Normal NONE SEEN [facility] Comment on above: Performed By: #### U AMIC ####[facility] Xdmvamydaw[address] [place], [place] [address]Dr. Tadeo Smyth Clarity (U) CLEAR Normal CLEAR [facility] Comment on above: Performed By: #### U AMIC ####[facility] Wer[address]sc[address] [place] [address]Dr. Tadeo Smyth Color (U) LT. YELLOW Normal YELLOW [facility] Comment on above: Performed By: #### U AMIC ####[facility] Clzbolecfc[address] [place], [place] [address]Dr. Tadeo Smyth Crystals LM Nom (Urine sed) NONE SEEN Normal NONE SEEN [facility] Comment on above: Performed By: #### U AMIC ####[facility] [address] [place] [address]Dr. Tadeo Smyth Epithelial cells LM Ql (Urine sed) RARE Normal NONE SEEN /RARE [facility] Comment on above: Performed By: #### U AMIC ####[facility] Xrqdtnwzpp[address] [place], [place] [address]Dr. Tadeo Smyth Glucose Ql (U) Negative Normal NEGATIVE [facility] Comment on above: Performed By: #### U AMIC ####[facility] Jfxhvpilba[address] [place], [place] [address]Dr. Tadeo Smyth Hemoglobin Ql (U) TRACE-LYSED Abnormal NEGATIVE [facility] Comment on above: Performed By: #### U AMIC ####[facility] V[address]vltyxg[address] [place], [place] [address]Dr. Tadeo Smyth Ketones Ql (U) Negative Normal NEGATIVE [facility] Comment on above: Performed By: #### U AMIC ####[facility] [address] [place] [address]Dr. Tadeo Smyth LEUKOCYTES Negative Normal NEGATIVE [facility] Comment on above: Performed By: #### U AMIC ####[facility] Ty[address]uf[address] [place] [address]Dr. Tadeo Smyth MUCOUS NONE SEEN Normal NONE SEEN [facility] Comment on above: Performed By: #### U AMIC ####[facility] [address]sw[address] [place] [address]Dr. Tadeo Smyth Nitrite Ql (U) Negative Normal NEGATIVE [facility] Comment on above: Performed By: #### U AMIC ####[facility] C[address]ks[address]xc[address] [place], [place] [address]Dr. Tadeo Smyth pH (U) 6.0 [pH] Normal 5-9 [facility] Comment on above: Performed By: #### U AMIC ####[facility] Xj[address] [place], [place] [address]Dr. Tadeo Smyth RBC 0-2 Normal 0-2 [facility] Comment on above: Performed By: #### U AMIC ####[facility] Haswdfvcfr[address] [place], [place] [address]Dr. Tadeo Smyth SPEC GRAVITY 1.010 Normal 1.005-<=1.0 25 [facility] Comment on above: Performed By: #### U AMIC ####[facility] X[address]orm[address]kcd[address] [place], [place] [address]Dr. Tadeo Smyth UA PROTEIN Negative Normal NEGATIVE/ TRACE [facility] Comment on above: Performed By: #### U AMIC ####[facility] Y[address]eeqfqmb[address] [place], [place] [address]Dr. Tadeo Smyth Urobilinogen Qn (U) 0.2 {Benito'U}/dL Normal 0.2 - 1. 0 [facility] Comment on above: Performed By: #### U AMIC ####[facility] R[address]fa[address] [place], [place] [address]Dr. Tadeo Smyth WBC 0-2 Abnormal NONE SEEN [facility] Comment on above: Performed By: #### U [facility] ####[facility] [address] [place], [place] [address]Sf. Tadeo Smyth Activated partial thrombopla stin time (aPTT) in platelet poor plasma by coagulation aOrdered By: Conner Griffith on 10-26-2022 aPTT Coag (PPP) [Time] 30.8 s 25.1-36.5 [facility] Albumin [Mass/volume] in Ser um or PlasmaOrdered By: Conner Griffith on 10-26-2022 Albumin [Mass/Vol] 3.6 g/dL 3.2-5.5 [facility] Automated erythrocytes count in urine sediment (number/area)Ordered By: Conner Griffith on 10-26-2022 RBC Auto (Urine sed) [#/Area] 0-1 [HPF] 0-4 [facility] Automated leukocytes count i n urine sediment (number/area)Ordered By: Conner Griffith on 10-26-2022 WBC Auto (Urine sed) [#/Area] None seen [HPF] 0-4 [facility] Basophils Auto (Bld) [#/Vol] Ordered By: Conner Griffith on 10-26-2022 Basophils (Bld) [#/Vol] 0.0 10*3/uL 0.0-0.2 [facility] Basophils/100 WBC Auto (Bld) Ordered By: Cnoner Griffith on 10-26-2022 Basophils/100 WBC (Bld) 0.6 % . [facility] Bilirubin Test strip Ql (U)O rdered By: Conner Griffith on 10-26-2022 Bilirubin Ql (U) Negative Negative [facility] Color Auto (U)Ordered By: Kevin Griffith on 10-26-2022 Color (U) Yellow Yellow [facility] Creatinine and Glomerular fi ltration rate.predicted panel (S/P/Bld)Ordered By: Conner Griffith on 10-26-2022 Creatinine [Mass/Vol] 0.81 mg/dL 0.44-1.03 [facility] Eosinophils Auto (Bld) [#/Vo l]Ordered By: Conner Griffith on 10-26-2022 Eosinophils (Bld) [#/Vol] 0.2 10*3/uL 0.0-0.45 [facility] Eosinophils/100 WBC Auto (Bl d)Ordered By: Conner Griffith on 10-26-2022 Eosinophils/100 WBC (Bld) 3.3 % . [facility] Erythrocyte distribution wid th Auto (RBC) [Ratio]Ordered By: Conner Griffith on 10-26-2022 Erythrocyte distribution width (RBC) [Ratio] 14.5 % 11.9-15.3 [facility] Estimated glomerular filtrat ion rate (GFR) non- AmericanOrdered By: Conner Griffith on 10-26-2022 GFR/1.73 sq M.predicted among non-blacks MDRD (S/P/Bld) [Vol rate/Area] > 60 mL/Min [facility] Globulin Calc (S) [Mass/Vol] Ordered By: Conner Griffith on 10-26-2022 Globulin (S) [Mass/Vol] 3.2 g/dL [facility] Hematocrit Auto (Bld) [Volum e fraction]Ordered By: Conner Griffith on 10-26-2022 Hematocrit (Bld) [Volume fraction] 36.7 % 34.0-46.4 [facility] Hemoglobin [Mass/volume] in BloodOrdered By: Conner Griffith on 10-26-2022 Hemoglobin (Bld) [Mass/Vol] 12.1 g/dL 11.8-15.4 [facility] Ketones Auto test strip (U) [Mass/Vol]Ordered By: Conner Griffith on 10-26-2022 Ketones (U) [Mass/Vol] Negative Negative [facility] Laboratory - Chemistry and C hemistry - challengeOrdered By: Conner Griffith on 10-26-2022 Lipase [Catalytic activity/Vol] 37.0 U/L [facility] Laboratory - CoagulationOrde red By: Conner Griffith on 10-26-2022 PT Coag (PPP) [Time] 10.6 s 9.0-12.9 [facility] Laboratory - UrinalysisOrder ed By: Conner Griffith on 10-26-2022 Hyaline casts LM Ql (Urine sed) None seen [LPF] 0-8 [facility] Leukocytes [#/volume] correc jun for nucleated erythrocytes in Blood by Automated counOrdered By: Conner Griffith on 10-26-2022 WBC corrected for nucl RBC Auto (Bld) [#/Vol] 6.3 10*3/uL 3.8-11.6 [facility] Lymphocytes Auto (Bld) [#/Vo l]Ordered By: Conner Griffith on 10-26-2022 Lymphocytes (Bld) [#/Vol] 1.9 10*3/uL 1.00-4.8 [facility] Lymphocytes/100 WBC Auto (Bl d)Ordered By: Conner Griffith on 10-26-2022 Lymphocytes/100 WBC (Bld) 29.7 % . [facility] MCH Auto (RBC) [Entitic mass ]Ordered By: Conner Griffith on 10-26-2022 MCH (RBC) [Entitic mass] 29.3 pg 24.7-34.3 [facility] MCHC Auto (RBC) [Mass/Vol]Or dered By: Conner Griffith on 10-26-2022 MCHC (RBC) [Mass/Vol] 33.1 g/dL 32.0-35.0 [facility] MCV Auto (RBC) [Entitic vol] Ordered By: Conner Griffith on 10-26-2022 MCV (RBC) [Entitic vol] 88.5 fL 80-100 [facility] Monocyte distribution width [Entitic volume] in Blood by AutomatedOrdered By: Conner Griffith on 10-26-2022 Monocyte distribution width Auto (Bld) [Entitic vol] 16.27 % 0.00-20.00 [facility] Monocytes Auto (Bld) [#/Vol] Ordered By: Conner Griffith on 10-26-2022 Monocytes (Bld) [#/Vol] 0.4 10*3/uL 0.0-0.8 [facility] Monocytes/100 WBC Auto (Bld) Ordered By: Conner Griffith on 10-26-2022 Monocytes/100 WBC (Bld) 7.1 % . [facility] Neutrophils Auto (Bld) [#/Vo l]Ordered By: Conner Griffith on 10-26-2022 Neutrophils (Bld) [#/Vol] 3.7 10*3/uL 1.8-7.7 [facility] Neutrophils/100 WBC Auto (Bl d)Ordered By: Conner Griffith on 10-26-2022 Neutrophils/100 WBC (Bld) 59.3 % . [facility] Nitrite Test strip Ql (U)Ord ered By: Conner Griffith on 10-26-2022 Nitrite Ql (U) Negative Negative [facility] No Panel InformationOrdered By: Conner Griffith on 10-26-2022 Estimated GFR () > 60 mL/Min [facility] Comment on above: GFR estimated refere nce range: According to KDOQI guidelines, <60 ml/min/1.73m2 is sufficient to diagnose a patient with chronic kidney disease. Pharmacy Creatinine Clearance (Chem 93.01 [facility] Nucleated erythrocytes [Pres ence] in Blood by Automated countOrdered By: Conner Griffith on 10-26-2022 Nucleated RBC Auto Ql (Bld) 0.3 /100{WBC} 0-0.5 [facility] Platelet mean volume Auto (B ld) [Entitic vol]Ordered By: Conner Griffith on 10-26-2022 Platelet mean volume (Bld) [Entitic vol] 7.5 fL 6.3-10.7 [facility] Platelet poor plasma interna tional normalized ratio (INR) by coagulation assay (relatOrdered By: Conner Griffith on 10-26-2022 INR Coag (PPP) [Relative time] 0.9 {INR} [facility] Comment on above: INR Therapeutic Rang [...] 10-26-2022 Platelets (Bld) [#/Vol] 379 10*3/uL 150-450 [facility] Protein Auto test strip (U) [Mass/Vol]Ordered By: Conner Griffith on 10-26-2022 Protein (U) [Mass/Vol] Negative Negative [facility] Protein [Mass/volume] in Ser um or PlasmaOrdered By: Conner Griffith on 10-26-2022 Protein [Mass/Vol] 6.8 g/dL 6.1-7.9 [facility] RBC Auto (Bld) [#/Vol]Ordere d By: Conner Griffith on 10-26-2022 RBC (Bld) [#/Vol] 4.14 10*6/uL 3.60-5.00 [facility] Serum or plasma alanine cooley otransferase measurement without P-5'-P (enzymatic activiOrdered By: Conner Griffith on 10-26-2022 ALT No additional P-5'-P [Catalytic activity/Vol] 18 U/L 10-60 [facility] Serum or plasma albumin/glob ulin mass ratioOrdered By: Conner Griffith on 10-26-2022 Albumin/Globulin [Mass ratio] 1.1 {ratio} [facility] Serum or plasma alkaline augustin sphatase measurement (enzymatic activity/volume)Ordered By: Conner Griffith on 10-26-2022 ALP [Catalytic activity/Vol] 121 U/L 32-92 [facility] Serum or plasma anion gap de terminationOrdered By: Connre Griffith on 10-26-2022 Anion gap [Moles/Vol] 11.3 mmol/L 6.0-15.0 [facility] Serum or plasma aspartate am inotransferase measurement (enzymatic activity/volume)Ordered By: Conner Griffith on 10-26-2022 AST [Catalytic activity/Vol] 19 U/L 10-42 [facility] Serum or plasma calcium julee urement (mass/volume)Ordered By: Conner Griffith on 10-26-2022 Calcium [Mass/Vol] 8.9 mg/dL 8.2-10.2 [facility] Serum or plasma chloride julio surement (moles/volume)Ordered By: Conner Griffith on 02-21-2023 Chloride [Moles/Vol] 108 mmol/L 95-114 [facility] Serum or plasma glucose julee urement (mass/volume)Ordered By: Conner Griffith on 10-26-2022 Glucose [Mass/Vol] 95 mg/dL 70-100 [facility] Comment on above: ADA recommended refe rence rangeRandom Glucose Reference Range is dependent on time and content of last meal. Glucose of more than 200 mg/dL in a nonstressed, ambulatory subject supports the diagnosis of Diabetes Mellitus. Serum or plasma potassium me asurement (moles/volume)Ordered By: Conner Griffith on 10-26-2022 Potassium [Moles/Vol] 3.4 mmol/L 3.5-5.1 [facility] Serum or plasma sodium measu rement (moles/volume)Ordered By: Conner Griffith on 10-26-2022 Sodium [Moles/Vol] 141 mmol/L 136-146 [facility] Serum or plasma total biliru bin measurement (mass/volume)Ordered By: Conner Griffith on 10-26-2022 Bilirubin [Mass/Vol] 0.4 mg/dL 0.3-1.2 [facility] Serum or plasma total carbon dioxide measurement (moles/volume)Ordered By: Conner Griffith on 10-26-2022 CO2 [Moles/Vol] 25.1 mmol/L 22.0-30.0 [facility] Serum or plasma urea nitroge n measurement (mass/volume)Ordered By: Conner Griffith on 10-26-2022 Urea nitrogen [Mass/Vol] 18 mg/dL 9-23 [facility] Specific gravity Auto test s trip (U) [Rel density]Ordered By: Conner Griffith on 10-26-2022 Specific gravity (U) [Rel density] 1.019 1.001-1.030 [facility] Squamous epithelial cells de tection in urine sediment by light microscopyOrdered By: Conner Griffith on 10-26-2022 Epithelial cells.squamous LM Ql (Urine sed) 1-2 [HPF] 0-2 [facility] Urine bacteria detection by automated methodOrdered By: Conner Griffith on 10-26-2022 Bacteria Auto Ql (U) None seen None Seen [facility] Urine clarity by refractomet ry automatedOrdered By: Conner Griffith on 10-26-2022 Clarity Refractometry automated (U) Clear Clear [facility] Urine glucose measurement by automated test strip (mass/volume)Ordered By: Conner Griffith on 10-26-2022 Glucose Auto test strip (U) [Mass/Vol] Normal mg/dL Normal [facility] Urine hemoglobin detection b y automated test stripOrdered By: Conner Griffith on 10-26-2022 Hemoglobin Auto test strip Ql (U) Negative Negative [facility] Urine lactic acid measuremen tOrdered By: Conner Griffith on 10-26-2022 Lactate (U) [Moles/Vol] 1.0 mmol/L 0.5-2.2 [facility] Urine leukocyte esterase det ection by automated test stripOrdered By: Conner Griffith on 10-26-2022 Leukocyte esterase Auto test strip Ql (U) 1+ Negative [facility] Urobilinogen Auto test strip (U) [Mass/Vol]Ordered By: Conner Griffith on 10-26-2022 Urobilinogen (U) [Mass/Vol] Normal mg/dL Normal [facility] WBC Auto (Bld) [#/Vol]Ordere d By: Conner Griffith on 10-26-2022 WBC (Bld) [#/Vol] 6.3 10*3/uL 3.8-11.6 [facility] pH Auto test strip (U)Ordere d By: Conner Griffith on 10-26-2022 pH (U) 6.5 [pH] 5.0-9.0 [facility] CBC AUTO DIFFon 09-21-2022 BASO # 0.0 103/ul Normal 0.0-0.1 [facility] Comment on above: Performed By: #### C BC ####[facility] [address] [place] [address]DrNeo Smyth Basophils/100 WBC (Bld) 0.4 % Normal 0.2-2.0 [facility] Comment on above: Performed By: #### C BC ####[facility] [address] [place] [address]DrNeo Smyth EO # 0.1 103/ul Normal 0.0-0.7 [facility] Comment on above: Performed By: #### C BC ####[facility] [address] [place] [address]Dr. Tadeo Smyth Eosinophils/100 WBC (Bld) 1.8 % Normal 0.9-7.0 [facility] Comment on above: Performed By: #### C BC ####[facility] [address] [place], [place] [address]Dr. Tadeo Smyth Erythrocyte distribution width (RBC) [Ratio] 13.8 % Normal 11.0-15.0 [facility] Comment on above: Performed By: #### C BC ####[facility] [address]ri[address] [place], [place] [address]Dr. Tadeo Smyth Hematocrit (Bld) [Volume fraction] 41.0 % Normal 36.0-48.0 [facility] Comment on above: Performed By: #### C BC ####[facility] [address]dfq[address] [place], [place] [address]Dr. Tadeo Smyth Hemoglobin (Bld) [Mass/Vol] 13.3 g/dL Normal 12.0-16.0 [facility] Comment on above: Performed By: #### C BC ####[facility] [address] [place], [place] [address]Dr. Tadeo Smyth IG # 0.01 10e3/ul Normal 0.00-0.03 [facility] Comment on above: Performed By: #### C BC ####[facility] [address]xjf[address] [place], [place] [address]Dr. Tadeo Smyth IG % 0.1 % Normal 0.0-0.5 [facility] Comment on above: Performed By: #### C BC ####[facility] [address]vy[address] [place], [place] [address]Dr. Tadeo Smyth LYMPH # 1.7 103/ul Normal 1.2-3.8 [facility] Comment on above: Performed By: #### C BC ####[facility] Eadfetemcl[address] [place], [place] [address]Dr. Tadeo Smyth Lymphocytes/100 WBC (Bld) 24.8 % Normal 20.5-60.0 [facility] Comment on above: Performed By: #### C BC ####[facility] [address] [place] [address]Dr. Tadeo Smyth MANUAL DIFF REQ NO Normal [facility] Comment on above: Performed By: #### C BC ####[facility] [address] [place] [address]Dr. Tadeo Smyth MCH (RBC) [Entitic mass] 29.0 pg Normal 26.7-34.0 [facility] Comment on above: Performed By: #### C BC ####[facility] Z[address]eshulk[address] [place], [place] [address]Dr. aTdeo Smyth MCHC (RBC) [Mass/Vol] 32.4 g/dL Normal 29.9-35.2 [facility] Comment on above: Performed By: #### C BC ####[facility] C[address]og[address]ef[address] [place], [place] [address]Dr. Tadeo Smyth MCV (RBC) [Entitic vol] 89.3 fL Normal 81.0-99.0 [facility] Comment on above: Performed By: #### C BC ####[facility] [address] [place], [place] [address]Dr. Tadeo Smyth MONO # 0.5 103/ul Normal 0.3-0.8 [facility] Comment on above: Performed By: #### C BC ####[facility] [address]aitwgrre[address] [place], [place] [address]Dr. Tadeo Smyth Monocytes/100 WBC (Bld) 6.9 % Normal 1.7-12.0 [facility] Comment on above: Performed By: #### C BC ####[facility] [address] [place], [place] [address]DrNeo mSyth NEUT # 4.5 103/ul Normal 1.4-6.5 [facility] Comment on above: Performed By: #### C BC ####[facility] [address]msieg[address] [place], [place] [address]Dr. Tadeo Smyth Neutrophils/100 WBC (Bld) 66.0 % Normal 43.0-75.0 [facility] Comment on above: Performed By: #### C BC ####[facility] [address] [place] [address]DrNeo Smyth Platelet mean volume (Bld) [Entitic vol] 8.8 fL Critically low 9.5-13.5 [facility] Comment on above: Performed By: #### C BC ####[facility] [address] [place], [place] [address]DrNeo Smyth PLT 384 103/ul Normal 150-450 [facility] Comment on above: Performed By: #### C BC ####[facility] [address]mxxvqr[address] [place], [place] [address]DrNeo Smyth RBC 4.59 106/ul Normal 4.20-5.40 [facility] Comment on above: Performed By: #### C BC ####[facility] [address]ic[address] [place], [place] [address]DrNeo Smyth WBC 6.8 103/ul Normal 4.0-11.0 [facility] Comment on above: Performed By: #### C BC ####[facility] [address] [place], [place] [address]DrNeo Smyth PROF CHEM 8 (BAS METB)on Anion gap [Moles/Vol] 13.8 mmol/L Normal [facility] Comment on above: Performed By: #### B MP ####[facility] [address]tr[address] [place], [place] [address]DrNeo Smyth Calcium [Mass/Vol] 9.6 mg/dL Normal 8.5-10.1 [facility] Comment on above: Performed By: #### B MP ####[facility] [address] [place], [place] [address]DrNeo Smyth Chloride [Moles/Vol] 106 mmol/L Normal 98-107 [facility] Comment on above: Performed By: #### B MP ####[facility] [address] [place], [place] [address]DrNeo Piedra Smyth CO2 [Moles/Vol] 25.9 mmol/L Normal 21.0-32.0 [facility] Comment on above: Performed By: #### B MP ####[facility] [address] [place] [address]Dr. Tadeo Haja Creatinine [Mass/Vol] 0.92 mg/dL Normal 0.55-1.02 [facility] Comment on above: Performed By: #### B MP ####[facility] [address] [place] [address]Dr. Tadeo Haja EGFR-AF KYRGYZ >60 Normal >=60 [facility] Comment on above: Performed By: #### B MP ####[facility] [address] [place], [place] [address]Dr. Margotnicole Haja EGFR-NON AF KYRGYZ >60 Normal >=60 [facility] Comment on above: Performed By: #### B MP ####[facility] Pckbvrdnju[address] [place], [place] [address]Dr. Tadeo Haja Glucose [Mass/Vol] 98 mg/dL Normal 74-106 [facility] Comment on above: Performed By: #### B MP ####[facility] Exylrriswf77[address] [place], [place] [address]Dr. Margotnicole Haja Potassium [Moles/Vol] 3.7 mmol/L Normal 3.5-5.1 [facility] Comment on above: Performed By: #### B MP ####[facility] Ijebmwopdu7[address] [place], [place] [address]Dr. Tadeo Smyth Sodium [Moles/Vol] 142 mmol/L Normal 136-145 [facility] Comment on above: Performed By: #### B MP ####[facility] Kopmntfiea[address] [place], [place] [address]Dr. Tadeo Smyth Urea nitrogen [Mass/Vol] 19.0 mg/dL Critically high 7.0-18.0 [facility] Comment on above: Performed By: #### B MP ####[facility] Weuvjxgxqq97[address] [place], [place] [address]Dr. Tadeo Smyth Urea nitrogen/Creatinine [Mass ratio] 20.7 mg/mg Normal [facility] Comment on above: Performed By: #### B MP ####[facility] Gauvkxsuwm6[address] [place], [place] [address]Dr. Tadeo Smyth XR KUB 1 VIEWon 09-21-2022 XR KUB 1 VIEW Normal The [facility] AMYLASEon 09-18-2022 Amylase [Catalytic activity/Vol] 58 U/L Normal 25-115 [facility] Comment on above: Performed By: #### L IPA, CMP, VIJI ####[facility] Dhqompycqw[address] [place], [place] [address]Dr. Tadeo Smyth CBC AUTO DIFFon 09-18-2022 BASO # 0.0 103/ul Normal 0.0-0.1 [facility] Comment on above: Performed By: #### C BC ####[facility] Dvqozeurpy[address] [place], [place] [address]Dr. Tadeo Smtyh Basophils/100 WBC (Bld) 0.3 % Normal 0.2-2.0 [facility] Comment on above: Performed By: #### C BC ####[facility] Qetwsxuhtd[address] [place], [place] [address]Dr. Tadeo Smyth EO # 0.1 103/ul Normal 0.0-0.7 [facility] Comment on above: Performed By: #### C BC ####[facility] Rbkfynbpiy[address] [place], [place] [address]Dr. Tadeo Smyth Eosinophils/100 WBC (Bld) 1.8 % Normal 0.9-7.0 [facility] Comment on above: Performed By: #### C BC ####[facility] Rpjfulrdmr[address] [place], [place] [address]Dr. Tadeo Smyth Erythrocyte distribution width (RBC) [Ratio] 13.7 % Normal 11.0-15.0 [facility] Comment on above: Performed By: #### C BC ####[facility] Fhtozvcwxj44[address] [place], [place] [address]Dr. Tadeo Smyth Hematocrit (Bld) [Volume fraction] 37.4 % Normal 36.0-48.0 [facility] Comment on above: Performed By: #### C BC ####[facility] [address] [place] [id number]. Tadeo Smyth Hemoglobin (Bld) [Mass/Vol] 12.3 g/dL Normal 12.0-16.0 [facility] Comment on above: Performed By: #### C BC ####[facility] [address] [place] [address]Dr. Tadeo Smyth IG # 0.02 10e3/ul Normal 0.00-0.03 [facility] Comment on above: Performed By: #### C BC ####[facility] R[address]mmnrxmp4[address] [place] [address]Dr. Tadeo Smyth IG % 0.3 % Normal 0.0-0.5 [facility] Comment on above: Performed By: #### C BC ####[facility] [address]xf[address]dqkqm[address] [place] [address]Dr. Tadeo Smyth LYMPH # 2.2 103/ul Normal 1.2-3.8 [facility] Comment on above: Performed By: #### C BC ####[facility] P[address]fcslseop[address] [place] [address]Dr. Tadeo Smyth Lymphocytes/100 WBC (Bld) 29.3 % Normal 20.5-60.0 [facility] Comment on above: Performed By: #### C BC ####[facility] [address]hiuq[address] [place] [address]Dr. Tadeo Smyth MANUAL DIFF REQ NO Normal [facility] Comment on above: Performed By: #### C BC ####[facility] P[address]zhzmwvbm[address] [place] [address]Dr. Tadeo Smyth MCH (RBC) [Entitic mass] 29.0 pg Normal 26.7-34.0 [facility] Comment on above: Performed By: #### C BC ####[facility] Xyzxrmsyta[address] [place] [address]Dr. Tadeo Smyth MCHC (RBC) [Mass/Vol] 32.9 g/dL Normal 29.9-35.2 [facility] Comment on above: Performed By: #### C BC ####[facility] S[address]vprzp[address] [place] [address]Dr. Tadeo Smyth MCV (RBC) [Entitic vol] 88.2 fL Normal 81.0-99.0 [facility] Comment on above: Performed By: #### C BC ####[facility] Ye[address]lqvrzl[address] [place] [address]Dr. Tadeo Smyth MONO # 0.5 103/ul Normal 0.3-0.8 [facility] Comment on above: Performed By: #### C BC ####[facility] Wsqackroky[address] [place] [address]Dr. Tadeo Smyth Monocytes/100 WBC (Bld) 6.4 % Normal 1.7-12.0 [facility] Comment on above: Performed By: #### C BC ####[facility] Keucevwqcj36[address] [place], [place] [address]Dr. Tadeo Smyth NEUT # 4.7 103/ul Normal 1.4-6.5 [facility] Comment on above: Performed By: #### C BC ####[facility] Wwwpjbnoud80[address] [place], [place] [address]Dr. Tadeo Smyth Neutrophils/100 WBC (Bld) 61.9 % Normal 43.0-75.0 [facility] Comment on above: Performed By: #### C BC ####[facility] Q[address]xvbpjdr[address] [place], [place] [address]Dr. Tadeo Smyth Platelet mean volume (Bld) [Entitic vol] 9.0 fL Critically low 9.5-13.5 [facility] Comment on above: Performed By: #### C BC ####[facility] Grpcxvglrj[address] [place], [place] [address]Dr. Tadeo Smyth PLT 395 103/ul Normal 150-450 [facility] Comment on above: Performed By: #### C BC ####[facility] Ejgqxiltku4[address] [place], [place] [address]Dr. Tadeo Haja RBC 4.24 106/ul Normal 4.20-5.40 [facility] Comment on above: Performed By: #### C BC ####[facility] Mlesnttmrr[address] [place] [address]Dr. Tadeo Smyth WBC 7.6 103/ul Normal 4.0-11.0 [facility] Comment on above: Performed By: #### C BC ####[facility] Gcgtnpvfzx7236 [place] [address]Dr. Margotnicole Haja CT ABD/PELV W CONon 09-18-[address] ABD/PELV W CON Normal The [facility] ER URINE PROFILEon 3 Bilirubin Ql (U) SMALL Abnormal NEGATIVE The [facility] Comment on above: Performed By: #### Matthew FRANCISCO ICRO ####[facility] Seybkivjff[address] [place], [place] [address]Dr. Tadeo Smyth Clarity (U) CLEAR Normal CLEAR [facility] Comment on above: Performed By: #### RANDI MERCHANTICRO ####[facility] Yejpisavwk6644[address] [place], [place] [address]Dr. Tadeo Smyth Color (U) DK. YELLOW Normal YELLOW [facility] Comment on above: Performed By: #### RANDI MERCHANTICRO ####[facility] Jwfgvfgawi[address] [place], [place] [address]Dr. Tadeo CAMAROGD A micrscopic examina tion will be performed if indicated. Normal [facility] Comment on above: Performed By: #### RANDI MERCHANTICRO ####[facility] Brqmshgibu[address] [place], [place] [address]Dr. Tadeo Smyth Glucose Ql (U) Negative Normal NEGATIVE [facility] Comment on above: Performed By: #### Matthew FRANCISCO UMICRO ####[facility] Dotvrufjem4[address] [place], [place] [address]Dr. Tadeo Smyth Hemoglobin Ql (U) SMALL Abnormal NEGATIVE The [facility] Comment on above: Performed By: #### Matthew FRANCISCO UMICRO ####[facility] Wnvufmvqjo347[address] [place], [place] [address]Dr. Tadeo Smyth Ketones Ql (U) Negative Normal NEGATIVE [facility] Comment on above: Performed By: #### KAROL MERCHANT ####[facility] [address]zqle[address] [place] [address]Dr. Tadeo Smyth LEUKOCYTES Negative Normal NEGATIVE [facility] Comment on above: Performed By: #### KAROL MERCHANT ####[facility] Qclhvzrene7810 [place] [address]Dr. Tadeo Smyth Nitrite Ql (U) Negative Normal NEGATIVE [facility] Comment on above: Performed By: #### KAROL MERCHANT ####[facility] Zinxrjzwum2386 [place] [address]Dr. Tadeo Smyth pH (U) 5.5 [pH] Normal 5-9 [facility] Comment on above: Performed By: #### KAROL MERCHANT ####[facility] Oh[address]dyrqxt[address] [place] [address]Dr. Tadeo Smyth SPEC GRAVITY >=1.030 Abnormal 1.005-<=1.0 25 [facility] Comment on above: Performed By: #### KAROL MERCHANT ####[facility] Dmivmnqrel74[address] [place] [address]Dr. Tadeo Smyth UA PROTEIN TRACE Normal NEGATIVE/ TRACE [facility] Comment on above: Performed By: #### KAROL MERCHANT ####[facility] Yizdqsdulp[address] [place] [address]Dr. Tadeo Smyth UR MICRO IND INDICATED Normal [facility] Comment on above: Performed By: #### KAROL MERCHANT ####[facility] Woghdztdqq90[address] [place] [address]Dr. Tadeo Smyth Urobilinogen Qn (U) 0.2 {Benito'U}/dL Normal 0.2 - 1. 0 [facility] Comment on above: Performed By: #### KAORL MERCHANT ####[facility] Auvrmahqna[address] [place], [place] [address]Dr. Tadeo Smyth LACTATE/LACTIC ACIDon 2022 Lactate [Moles/Vol] 1.1 mmol/L Normal 0.4-1.9 [facility] Comment on above: Performed By: #### L ACT ####[facility] Wevb[address] [place] [address]Dr. Tadeo Smyth LIPASEon 09-18-2022 Lipase [Catalytic activity/Vol] 75.0 U/L Normal 73.0-393.0 [facility] Comment on above: Performed By: #### L IPA, CMP, VIJI ####[facility] Bopceqwlal[address] [place] [address]Dr. Tadeo Smyth PROF 14(COMP METB)on 023 Albumin [Mass/Vol] 3.4 g/dL Normal 3.4-5.0 [facility] Comment on above: Performed By: #### L IPA, CMP, VIJI ####[facility] Kcfrkbosth[address] [place], [place] [address]Dr. Tadeo Smyth Albumin/Globulin [Mass ratio] 0.9 {ratio} Normal [facility] Comment on above: Performed By: #### L IPA, CMP, VIJI ####[facility] Gublprmmjk[address] [place], [place] [address]Dr. Tadeo Smyth ALP [Catalytic activity/Vol] 164 U/L Critically high 46-116 [facility] Comment on above: Performed By: #### L IPA, CMP, VIJI ####[facility] Jcmtpbdqnk[address] [place], [place] [address]Dr. Tadeo Smyth ALT [Catalytic activity/Vol] 29 U/L Normal 14-59 [facility] Comment on above: Performed By: #### L IPA, CMP, VIJI ####[facility] Vaehcbfmle[address] [place] [address]Dr. Tadeo Smyth Anion gap [Moles/Vol] 12.3 mmol/L Normal [facility] Comment on above: Performed By: #### L IPA, CMP, VIJI ####[facility] Zmsqqqbbsb96[address] [place], [place] [address]Dr. Tadeo Smyth AST [Catalytic activity/Vol] 30 U/L Normal 15-37 [facility] Comment on above: Performed By: #### L IPA, CMP, VIJI ####[facility] Nfwdoxblxh8558 [place] [address]Dr. Tadeo Smyth Bilirubin [Mass/Vol] 0.3 mg/dL Normal 0.2-1.0 [facility] Comment on above: Performed By: #### L IPA, CMP, VIJI ####[facility] Lqjrmazwgb4[address] [place], [place] [address]Dr. Tadeo Smyth Calcium [Mass/Vol] 8.9 mg/dL Normal 8.5-10.1 [facility] Comment on above: Performed By: #### L IPA, CMP, VIJI ####[facility] Zsdzinsysd[address] [place], [place] [address]Dr. Tadeo Smyth Chloride [Moles/Vol] 103 mmol/L Normal 98-107 [facility] Comment on above: Performed By: #### L IPA, CMP, VIJI ####[facility] Zfzqdhuxru[address] [place], [place] [address]Dr. Tadeo Smyth CO2 [Moles/Vol] 27.8 mmol/L Normal 21.0-32.0 [facility] Comment on above: Performed By: #### L IPA, CMP, VIJI ####[facility] Nivekddfeu65[address] [place], [place] [address]Dr. Tadeo Smyth Creatinine [Mass/Vol] 0.89 mg/dL Normal 0.55-1.02 [facility] Comment on above: Performed By: #### L IPA, CMP, VIJI ####[facility] Ntondnykhm[address] [place], [place] [address]Dr. Tadeo Smyth EGFR-AF KYRGYZ >60 Normal >=60 [facility] Comment on above: Performed By: #### L IPA, CMP, VIJI ####[facility] Onzjuekida9[address] [place], [place] [address]Dr. Tadeo Smyth EGFR-NON AF KYRGYZ >60 Normal >=60 [facility] Comment on above: Performed By: #### L IPA, CMP, VIJI ####[facility] Jyqhtbkugx[address] [place], [place] [address]Dr. Tadeo Smyth Globulin (S) [Mass/Vol] 3.9 g/dL Normal [facility] Comment on above: Performed By: #### L IPA, CMP, VIJI ####[facility] Eupmtuehyo[address] [place] [address]Dr. Tadeo Smyth Glucose [Mass/Vol] 96 mg/dL Normal 74-106 [facility] Comment on above: Performed By: #### L IPA, CMP, VIJI ####[facility] Nigexoxnru[address]707 [place] [address]Dr. Tadeo Smyth Potassium [Moles/Vol] 4.1 mmol/L Normal 3.5-5.1 [facility] Comment on above: Performed By: #### L IPA, CMP, VIJI ####[facility] Geqgvdopkg8[address] [place], [place] [address]Dr. Tadeo Smyth Protein [Mass/Vol] 7.3 g/dL Normal 6.4-8.2 [facility] Comment on above: Performed By: #### L IPA, CMP, VIJI ####[facility] Zhjcbochij[address] [place], [place] [address]Dr. Tadeo Smyth Sodium [Moles/Vol] 139 mmol/L Normal 136-145 [facility] Comment on above: Performed By: #### L IPA, CMP, VIJI ####[facility] Bjyuwuqzyy7[address] [place], [place] [address]Dr. Tadeo Smyth Urea nitrogen [Mass/Vol] 19.0 mg/dL Critically high 7.0-18.0 [facility] Comment on above: Performed By: #### L IPA, CMP, VIJI ####[facility] Dmkxzozjyw8476[address] [place], [place] [address]Dr. Tadeo Smyth Urea nitrogen/Creatinine [Mass ratio] 21.3 mg/mg Normal [facility] Comment on above: Performed By: #### L IPA, CMP, VIJI ####[facility] Zqguegueoa14[address] [place], [place] [address]Dr. Tadeo Smyth URINE MICROSCOPIC ONLYon BACTERIA TRACE Abnormal NONE SEEN [facility] Comment on above: Performed By: #### E RUR UMCHINEDURO ####[facility] Npqvfjavcl[address]49 [place] [address]Dr. Tadeo Smyth Bacteria identified Cx Nom (U) NOT INDICATED Normal [facility] Comment on above: Performed By: #### Matthew FRANCISCO UMICRO ####[facility] Rilrflbqje7606 [place] [address]Dr. Tadeo Smyth CAST NONE SEEN Normal NONE SEEN [facility] Comment on above: Performed By: #### Matthew FRANCISCO UMICRO ####[facility] Fvkhxvlvns[address] [place], [place] [address]Dr. Tadeo Smyth Crystals LM Nom (Urine sed) SEEN Abnormal NONE SEEN [facility] Comment on above: Performed By: #### Matthew FRANCISCO UMICRO ####[facility] Rntmcwvdws[address] [place], [place] [address]Dr. Tadeo Smyth Epithelial cells LM Ql (Urine sed) RARE Normal NONE SEEN /RARE [facility] Comment on above: Performed By: #### Matthew FRANCISCO UMICRO ####[facility] Sgfyljwwfi[address] [place], [place] [address]Dr. Tadeo Smyth MUCOUS TRACE Abnormal NONE SEEN [facility] Comment on above: Performed By: #### Matthew FRANCISCO ICRO ####[facility] Icymayjrjg[address] [place], [place] [address]Dr. Tadeo Smyth RBC 0-2 Normal 0-2 [facility] Comment on above: Performed By: #### Matthew FRANCISCO UMICRO ####[facility] Vkzwfarqxe99[address] [place], [place] [address]Dr. Tadeo Smyth WBC 0-2 Abnormal NONE SEEN [facility] Comment on above: Performed By: #### Matthew FRANCISCO UMICRO ####[facility] Pnowyncgbj3[address] [place], [place] [address]Dr. Tadeo Smyth CBC AUTO DIFFon 09-14-2022 BASO # 0.0 103/ul Normal 0.0-0.1 [facility] Comment on above: Performed By: #### C BC ####[facility] Jzwiuogxrk[address] [place], [place] [address]Dr. Tadeo Smyth Basophils/100 WBC (Bld) 0.3 % Normal 0.2-2.0 [facility] Comment on above: Performed By: #### C BC ####[facility] V[address]ymfdban7904 [place] [id number]. Tadeo Smyth EO # 0.2 103/ul Normal 0.0-0.7 [facility] Comment on above: Performed By: #### C BC ####[facility] Mbcvlpafsu00[address] [place], [place] [address]Dr. Tadeo Smyth Eosinophils/100 WBC (Bld) 1.1 % Normal 0.9-7.0 [facility] Comment on above: Performed By: #### C BC ####[facility] Tseuofpxdy20[address] [place], [place] [address]Dr. Tadeo Smyth Erythrocyte distribution width (RBC) [Ratio] 13.7 % Normal 11.0-15.0 [facility] Comment on above: Performed By: #### C BC ####[facility] I[address]mtqqhzvx11[address] [place], [place] [address]Dr. Tadeo Smyth Hematocrit (Bld) [Volume fraction] 41.3 % Normal 36.0-48.0 [facility] Comment on above: Performed By: #### C BC ####[facility] Gtnnjnqqqa[address] [place], [place] [address]Dr. Tadeo Smyth Hemoglobin (Bld) [Mass/Vol] 13.6 g/dL Normal 12.0-16.0 [facility] Comment on above: Performed By: #### C BC ####[facility] Ylonxzggpk7538[address] [place], [place] [address]Dr. Tadeo Smyth IG # 0.05 10e3/ul Critically high 0.00-0.03 [facility] Comment on above: Performed By: #### C BC ####[facility] Hjocbmnete6[address] [place], [place] [address]Dr. Tadeo Smyth IG % 0.4 % Normal 0.0-0.5 [facility] Comment on above: Performed By: #### C BC ####[facility] Kbdrvcyebc96[address] [place], [place] [address]Dr. Tadeo Smyth LYMPH # 2.2 103/ul Normal 1.2-3.8 [facility] Comment on above: Performed By: #### C BC ####[facility] Lnfmupftmp7254 [place] [address]Dr. Tadeo Haja Lymphocytes/100 WBC (Bld) 16.3 % Critically low 20.5-60.0 [facility] Comment on above: Performed By: #### C BC ####[facility] Yqjtevovtm58[address] [place] [address]Dr. Tadeo Smyth MANUAL DIFF REQ NO Normal [facility] Comment on above: Performed By: #### C BC ####[facility] Axpejzdjtl76[address] [place] [address]Dr. Margotnicole Smyth MCH (RBC) [Entitic mass] 28.9 pg Normal 26.7-34.0 [facility] Comment on above: Performed By: #### C BC ####[facility] Ulavqqbjal55[address] [place], [place] [address]Dr. Tadeo Smyth MCHC (RBC) [Mass/Vol] 32.9 g/dL Normal 29.9-35.2 [facility] Comment on above: Performed By: #### C BC ####[facility] Rvdywzmkud2[address] [place] [address]Dr. Margotnicole Smyth MCV (RBC) [Entitic vol] 87.9 fL Normal 81.0-99.0 [facility] Comment on above: Performed By: #### C BC ####[facility] Usqgheixgn[address] [place], [place] [address]Dr. Tadeo Smyth MONO # 0.7 103/ul Normal 0.3-0.8 [facility] Comment on above: Performed By: #### C BC ####[facility] Bucmukqrcf46[address] [place], [place] [address]Dr. Tadeo Smyth Monocytes/100 WBC (Bld) 5.1 % Normal 1.7-12.0 [facility] Comment on above: Performed By: #### C BC ####[facility] Zcqvapwjis[address] [place], [place] [address]Dr. Tadeo Smyth NEUT # 10.3 103/ul Critically high 1.4-6.5 [facility] Comment on above: Performed By: #### C BC ####[facility] Mnzytwxknw1520 [place] [address]Dr. Tadeo Smyth Neutrophils/100 WBC (Bld) 76.8 % Critically high 43.0-75.0 [facility] Comment on above: Performed By: #### C BC ####[facility] Xiosvgnmis3417 [place] [address]Dr. Tadeo Smyth Platelet mean volume (Bld) [Entitic vol] 8.8 fL Critically low 9.5-13.5 [facility] Comment on above: Performed By: #### C BC ####[facility] T[address]xczefvlo[address] [place], [place] [address]Dr. Tadeo Smyth PLT 438 103/ul Normal 150-450 [facility] Comment on above: Performed By: #### C BC ####[facility] Mgzprqkscw[address] [place], [place] [address]Dr. Tadeo Smyth RBC 4.70 106/ul Normal 4.20-5.40 [facility] Comment on above: Performed By: #### C BC ####[facility] Ndjawigtil9264[address] [place], [place] [address]Dr. Tadeo Smyth WBC 13.4 103/ul Critically high 4.0-11.0 [facility] Comment on above: Performed By: #### C BC ####[facility] Yaxubouwda47[address] [place], [place] [address]Dr. Tadeo Smyth ER URINE PROFILEon 3 Bilirubin Ql (U) Negative Normal NEGATIVE [facility] Comment on above: Performed By: #### SANDRO MERCHANTRO ####[facility] Q[address]ooasqaa[address] [place] [id number]. Tadeo Smyth Clarity (U) CLEAR Normal CLEAR [facility] Comment on above: Performed By: #### SANDRO MERCHANTRO ####[facility] Rlkijnrvnz5[address] [place] [id number]. Tadeo Smyth Color (U) LT. YELLOW Normal YELLOW [facility] Comment on above: Performed By: #### SANDRO MERCHANTRO ####[facility] Qstwimrohv5085 [place] [address]Dr. Tadeo ENG A micrscopic examina tion will be performed if indicated. Normal [facility] Comment on above: Performed By: #### KAROL MERCHANT ####[facility] Yakttpyvtq8062 [place] [address]Dr. Tadeo Smyth Glucose Ql (U) Negative Normal NEGATIVE [facility] Comment on above: Performed By: #### KAROL MERCHANT ####[facility] Qoxcqakfor6102 [place] [address]Dr. Tadeo Smyth Hemoglobin Ql (U) TRACE-INTACT Abnormal NEGATIVE [facility] Comment on above: Performed By: #### KAROL MERCHANT ####[facility] Vebukhjwuw[address] [place] [address]Dr. Tadeo Smyth Ketones Ql (U) Negative Normal NEGATIVE [facility] Comment on above: Performed By: #### KAROL MERCHANT ####[facility] Qdeqhmkww[address] [place], [place] [address]Dr. Tadeo Smyth LEUKOCYTES Negative Normal NEGATIVE [facility] Comment on above: Performed By: #### KAROL MERCHANT ####[facility] Zcchrywycm54[address] [place], [place] [address]Dr. Tadeo Smyth Nitrite Ql (U) Negative Normal NEGATIVE [facility] Comment on above: Performed By: #### KAROL MERCHANT ####[facility] Qefizntmix6[address] [place] [address]Dr. Tadeo Smyth pH (U) 6.5 [pH] Normal 5-9 [facility] Comment on above: Performed By: #### KAROL MERCHANT ####[facility] Vkivzdgpjh[address] [place], [place] [address]Dr. Tadeo Smyth SPEC GRAVITY 1.020 Normal 1.005-<=1.0 25 [facility] Comment on above: Performed By: #### KAROL MERCHANT ####[facility] Nvvonixrmb[address] [place], [place] [address]Dr. Tadeo Smyth UA PROTEIN Negative Normal NEGATIVE/ TRACE [facility] Comment on above: Performed By: #### KAROL MERCHANT ####[facility] Vcaivnjugz7986 [place] [address]Dr. Tadeo Smyth UR MICRO IND INDICATED Normal [facility] Comment on above: Performed By: #### KAROL MERCHANT ####[facility] Ffsgnkjnbr2847 [place] [address]Dr. Tadeo Smyth Urobilinogen Qn (U) 0.2 {Benito'U}/dL Normal 0.2 - 1. 0 [facility] Comment on above: Performed By: #### KAROL MERCHANT ####[facility] Gcdwygruil20[address] [place] [address]Dr. Tadeo Smyth LIPASEon 09-14-2022 Lipase [Catalytic activity/Vol] 117.0 U/L Normal 73.0-393.0 [facility] Comment on above: Performed By: #### H STROPN, CMP, LIPA ####[facility] Ekmdfbvfgx2684 [place] [address]Dr. Tadeo Smyth PROF 14(COMP METB)on 023 Albumin [Mass/Vol] 3.5 g/dL Normal 3.4-5.0 [facility] Comment on above: Performed By: #### H STROPN, CMP, LIPA ####[facility] Pgickrkrfa8749 [place] [address]Dr. Tadeo Smyth Albumin/Globulin [Mass ratio] 0.8 {ratio} Normal [facility] Comment on above: Performed By: #### H STROPN, CMP, LIPA ####[facility] Vypoojkvfy39[address] [place] [address]Dr. Tadeo Smyth ALP [Catalytic activity/Vol] 180 U/L Critically high 46-116 [facility] Comment on above: Performed By: #### H STROPN, CMP, LIPA ####[facility] Tcpukpvofh[address]122 [place] [address]Dr. Tadeo Smyth ALT [Catalytic activity/Vol] 25 U/L Normal 14-59 [facility] Comment on above: Performed By: #### H STROPN, CMP, LIPA ####[facility] Qeuhrrbxib3923 [place] [address]Dr. Tadeo Smyth Anion gap [Moles/Vol] 14.4 mmol/L Normal Th e [facility] Comment on above: Performed By: #### H STROPN, CMP, LIPA ####[facility] Jhvhrnzuso3842 [place] [address]Dr. Tadeo Smyth AST [Catalytic activity/Vol] 14 U/L Critically low 15-37 [facility] Comment on above: Performed By: #### H STROPN, CMP, LIPA ####[facility] Iktgpyltrf9379 [place] [address]Dr. Tadeo Smyth Bilirubin [Mass/Vol] 0.2 mg/dL Normal 0.2-1.0 [facility] Comment on above: Performed By: #### H STROPN, CMP, LIPA ####[facility] Yvnmveuhmj[address] [place], [place] [address]Dr. Tadeo Smyth Calcium [Mass/Vol] 9.4 mg/dL Normal 8.5-10.1 [facility] Comment on above: Performed By: #### H STROPN, CMP, LIPA ####[facility] Zejehhbmqe9299 [place] [address]Dr. Tadeo Smyth Chloride [Moles/Vol] 107 mmol/L Normal 98-107 [facility] Comment on above: Performed By: #### H STROPN, CMP, LIPA ####[facility] Phqtmbxnzg3285 [place] [address]Dr. Tadeo Smyth CO2 [Moles/Vol] 23.9 mmol/L Normal 21.0-32.0 [facility] Comment on above: Performed By: #### H STROPN, CMP, LIPA ####[facility] Oyoylnivdg1014 [place] [address]Dr. Tadeo Smyth Creatinine [Mass/Vol] 0.91 mg/dL Normal 0.55-1.02 [facility] Comment on above: Performed By: #### H STROPN, CMP, LIPA ####[facility] Sdxrppqmyi[address] [place] [id number]. Tadeo Smyth EGFR-AF KYRGYZ >60 Normal >=60 [facility] Comment on above: Performed By: #### H STROPN, CMP, LIPA ####[facility] Aecyhxgues9[address] [place] [id number]. Tadeo Smyth EGFR-NON AF KYRGYZ >60 Normal >=60 [facility] Comment on above: Performed By: #### H STROPN, CMP, LIPA ####[facility] Otbsxizhxj5829 [place] [address]Dr. Tadeo Smyth Globulin (S) [Mass/Vol] 4.2 g/dL Normal [facility] Comment on above: Performed By: #### H STROPN, CMP, LIPA ####[facility] Xhrscnqvso4588 [place] [address]Dr. Tadeo Smyth Glucose [Mass/Vol] 101 mg/dL Normal 74-106 [facility] Comment on above: Performed By: #### H STROPN, CMP, LIPA ####[facility] Drnptgzatm1259 [place] [address]Dr. Tadeo Smyth Potassium [Moles/Vol] 3.3 mmol/L Critically low 3.5-5.1 [facility] Comment on above: Performed By: #### H STROPN, CMP, LIPA ####[facility] Tjrtqbyrmq4799 [place] [address]Dr. Tadeo Smyth Protein [Mass/Vol] 7.7 g/dL Normal 6.4-8.2 [facility] Comment on above: Performed By: #### H STROPN, CMP, LIPA ####[facility] Yuaznzgfmf5933 [place] [address]Dr. Tadeo Smyth Sodium [Moles/Vol] 142 mmol/L Normal 136-145 [facility] Comment on above: Performed By: #### H STROPN, CMP, LIPA ####[facility] Veyowezjvz6425 [place] [address]Dr. Tadeo Smyth Urea nitrogen [Mass/Vol] 17.0 mg/dL Normal 7.0-18.0 [facility] Comment on above: Performed By: #### H DIANN FIGUEROA, LIPA ####[facility] Ysfxaykdmf8550 [place] [address]Dr. Tadeo Smyth Urea nitrogen/Creatinine [Mass ratio] 18.7 mg/mg Normal [facility] Comment on above: Performed By: #### H DIANN FIGUEROA, LIPA ####[facility] Nrdhbuodao6405 [place] [address]Dr. Tadeo Smyth TROPONIN, HIGH SENSITIVITYon 09-14-2022 HSTROP 46.6 pg/mL Normal 4.0-51.3 [facility] Comment on above: Result Comment: CUT- OFF POINTS HAVE BEEN ESTABLISHED BASED ON THE FOURTH UNIVERSAL DEFINITIONS OF MYOCARDIALINFARCTION. THE UPPER REFERENCE LIMIT (URL) OF TROPONIN, DEFINED THE 99TH PERCENTILE OFcTnI DISTRIBUTION IN A REFERENCE POPULATION, HAS BEEN CONFIRMED THE DECISION THRESHOLDFOR MS DIAGNOSIS. Performed By: #### H DIANN FIGUEROA, LIPA ####[facility] Ajmiaxzlcp0461 [place] [address]Dr. Tadeo Smyth URINE MICROSCOPIC ONLYon BACTERIA NONE SEEN Normal NONE SEEN [facility] Comment on above: Performed By: #### KAROL MERCHANT ####[facility] Wtfzojnkyy0633 [place] [address]Dr. Tadeo Smyth Bacteria identified Cx Nom (U) NOT INDICATED Normal [facility] Comment on above: Performed By: #### SANDRO MERCHANTRO ####[facility] Xgbsurznlm5324 [place] [address]Dr. Tadeo Smyth CAST NONE SEEN Normal NONE SEEN [facility] Comment on above: Performed By: #### SANDRO MERCHANTRO ####[facility] Enkquiktrr[address] [place] [address]Dr. Tadeo Smyth Crystals LM Nom (Urine sed) NONE SEEN Normal NONE SEEN [facility] Comment on above: Performed By: #### SANDRO MERCHANTRO ####[facility] Qnysbdizkj6148 [place] [address]Dr. Tadeo Smyth Epithelial cells LM Ql (Urine sed) FEW Abnormal NONE SEEN /RARE [facility] Comment on above: Performed By: #### SANDRO MERCHANTRO ####[facility] Yqyguzlsis7728 [place] [address]Dr. Tadeo Smyth MUCOUS MODERATE Abnormal NONE SEEN [facility] Comment on above: Performed By: #### SANDRO MERCHANTRO ####[facility] Thaefllzhh0530 [place] [address]Dr. Tadeo Smyth RBC 0-2 Normal 0-2 [facility] Comment on above: Performed By: #### SANDRO MERCHANTRO ####[facility] Cyaqgywvwc5645 [place] [address]Dr. Tadeo Smyth WBC NONE SEEN Normal NONE SEEN [facility] Comment on above: Performed By: #### KAROL MERCHANT ####[facility] Uppogfapiw8095 [place] [address]Dr. Tadeo Smyth XR ABD FLAT UP_PA Kasey 09-14 XR ABD FLAT UP_PA CH Normal [facility] VC COMP CONSULTATIONon 09-06 VC COMP CONSULTATION Normal [facility] VC VENOUS REFLUX MACARIO LMTon 0 09-06-2022 VC VENOUS REFLUX MACARIO LMT Normal [facility] XR KUB 1 VIEWon 08-18-2022 XR KUB 1 VIEW Normal [facility] US RUBENS DOP LEG RTon 08-11-20 22 US RUBENS DOP LEG RT Normal [facility] AMYLASEon 08-08-2022 Amylase [Catalytic activity/Vol] 64 U/L Normal 25-115 [facility] Comment on above: Performed By: #### C MP, VIJI, LIPA, CMADM ####[facility] Nysecamiif6068 [place] [address]Dr. Tadeo Smyth CARDIAC NORA ADMITon 022 CK [Catalytic activity/Vol] 127 U/L Normal 26-192 [facility] Comment on above: Performed By: #### C MP, VIJI, LIPA, CMADM ####[facility] Qykwoompmt3197 [place] [address]Dr. Tadeo Smyth CK.MB [Mass/Vol] 1.71 ng/mL Normal <=3.60 [facility] Comment on above: Performed By: #### C VIJI GARCIA LIPA, CMADM ####[facility] Vkzgnufxzr3633 [place] [address]Dr. Tadeo Smyth HSTROP 36.7 pg/mL Normal 4.0-51.3 [facility] Comment on above: Result Comment: CUT- OFF POINTS HAVE BEEN ESTABLISHED BASED ON THE FOURTH UNIVERSAL DEFINITIONS OF MYOCARDIALINFARCTION. THE UPPER REFERENCE LIMIT (URL) OF TROPONIN, DEFINED THE 99TH PERCENTILE OFcTnI DISTRIBUTION IN A REFERENCE POPULATION, HAS BEEN CONFIRMED THE DECISION THRESHOLDFOR MS DIAGNOSIS. Performed By: #### C VIJI AGRCIA, LIPA, CMADM ####[facility] Awngdvywqv3857 [place] [address]Dr. Tadeo Smyth AAKASH 23 ng/mL Normal 9-82 [facility] Comment on above: Performed By: #### C VIJI GARCIA, LIPA, CMADM ####[facility] Orcqupwsts6906 [place] [address]Dr. Tadeo Smyth CBC AUTO DIFFon 08-08-2022 BASO # 0.0 103/ul Normal 0.0-0.1 [facility] Comment on above: Performed By: #### C BC ####[facility] Aegulhrxkp9577 [place] [address]Dr. Tadeo Smyth Basophils/100 WBC (Bld) 0.4 % Normal 0.2-2.0 [facility] Comment on above: Performed By: #### C BC ####[facility] Nrpjoifrhj5070 [place] [address]Dr. Tadeo Smyth EO # 0.1 103/ul Normal 0.0-0.7 [facility] Comment on above: Performed By: #### C BC ####[facility] Bbsvnfaufg1899 [place] [address]Dr. Tadeo Smyth Eosinophils/100 WBC (Bld) 1.5 % Normal 0.9-7.0 [facility] Comment on above: Performed By: #### C BC ####[facility] Lucdskabzn9958 [place] [id number]. Tadeo Smyth Erythrocyte distribution width (RBC) [Ratio] 13.5 % Normal 11.0-15.0 [facility] Comment on above: Performed By: #### C BC ####[facility] Warbkagafx0279 [place] [address]Dr. Tadeo Smyth Hematocrit (Bld) [Volume fraction] 37.0 % Normal 36.0-48.0 [facility] Comment on above: Performed By: #### C BC ####[facility] Rakuruquwl[address] [place], [place] [address]Dr. Tadeo Smyth Hemoglobin (Bld) [Mass/Vol] 12.0 g/dL Normal 12.0-16.0 [facility] Comment on above: Performed By: #### C BC ####[facility] Prtgtcluzq[address] [place], [place] [address]Dr. Tadeo Smyth IG # 0.02 10e3/ul Normal 0.00-0.03 [facility] Comment on above: Performed By: #### C BC ####[facility] Kwaqzujghd[address] [place], [place] [address]Dr. Tadeo Smyth IG % 0.3 % Normal 0.0-0.5 [facility] Comment on above: Performed By: #### C BC ####[facility] Qscjiyslzy[address] [place], [place] [address]Dr. Tadeo Smyth LYMPH # 2.0 103/ul Normal 1.2-3.8 [facility] Comment on above: Performed By: #### C BC ####[facility] Koiuvdihgs6[address] [place], [place] [address]Dr. Tadeo Smyth Lymphocytes/100 WBC (Bld) 27.9 % Normal 20.5-60.0 [facility] Comment on above: Performed By: #### C BC ####[facility] Luvzykiqex9[address] [place], [place] [address]Dr. Tadeo Smyth MANUAL DIFF REQ NO Normal [facility] Comment on above: Performed By: #### C BC ####[facility] Tuxkztchbc6628 [place] [id number]. Tadeo Smyth MCH (RBC) [Entitic mass] 28.9 pg Normal 26.7-34.0 [facility] Comment on above: Performed By: #### C BC ####[facility] Esgejyndmp9861 [place] [id number]. Tadeo Smyth MCHC (RBC) [Mass/Vol] 32.4 g/dL Normal 29.9-35.2 [facility] Comment on above: Performed By: #### C BC ####[facility] Lbhwkguzrj[address] [place], [place] [id number]. Tadeo Smyth MCV (RBC) [Entitic vol] 89.2 fL Normal 81.0-99.0 [facility] Comment on above: Performed By: #### C BC ####[facility] Ufqtkbtivo[address] [place], [place] [address]Dr. Tadeo Haja MONO # 0.5 103/ul Normal 0.3-0.8 [facility] Comment on above: Performed By: #### C BC ####[facility] Luuhrnzlqo08[address] [place], [place] [address]Dr. Tadeo Haja Monocytes/100 WBC (Bld) 6.7 % Normal 1.7-12.0 [facility] Comment on above: Performed By: #### C BC ####[facility] Kgtfsuuvoh[address] [place], [place] [address]Dr. Tadeo Smyth NEUT # 4.5 103/ul Normal 1.4-6.5 [facility] Comment on above: Performed By: #### C BC ####[facility] Nyzlesdsns[address] [place], [place] [address]Dr. Tadeo Haja Neutrophils/100 WBC (Bld) 63.2 % Normal 43.0-75.0 [facility] Comment on above: Performed By: #### C BC ####[facility] Bxcedwrhpb[address] [place], [place] [address]Dr. Tadeo Haja Platelet mean volume (Bld) [Entitic vol] 9.0 fL Critically low 9.5-13.5 [facility] Comment on above: Performed By: #### C BC ####[facility] Dxrhhxpldw9661 [place] [id number]. Tadeo Smyth PLT 382 103/ul Normal 150-450 [facility] Comment on above: Performed By: #### C BC ####[facility] Houezuxxcl7210 [place] [id number]. Tadeo Smyth RBC 4.15 106/ul Critically low 4.20-5.40 [facility] Comment on above: Performed By: #### C BC ####[facility] Ulueucggch1284 [place] [id number]. Tadeo Smyth WBC 7.1 103/ul Normal 4.0-11.0 [facility] Comment on above: Performed By: #### C BC ####[facility] Nvyvyayvcv3543 [place] [address]Dr. Tadeo Smyth CT ABD/PELV W CONon 08-08-[address] ABD/PELV W CON Normal [facility] ER URINE PROFILEon 2 Bilirubin Ql (U) Negative Normal NEGATIVE [facility] Comment on above: Performed By: #### Matthew FRANCISCO ICRO ####[facility] Isiotmrbyc[address] [place], [place] [address]Dr. Tadeo Smyth Clarity (U) CLEAR Normal CLEAR [facility] Comment on above: Performed By: #### RANDI MERCHANTICRO ####[facility] Fbdsuhdoed[address] [place], [place] [address]Dr. Tadeo Smyth Color (U) YELLOW Normal YELLOW [facility] Comment on above: Performed By: #### Matthew FRANCISCO UMICRO ####[facility] [address]yusfebzpz[address] [place], [place] [id number]. Tadeo Smyth ERUAHD A micrscopic examina tion will be performed if indicated. Normal [facility] Comment on above: Performed By: #### RANDI MERCHANTICRO ####[facility] Eqmuuixheu1960 [place] [address]Dr. Tadeo Smyth Glucose Ql (U) Negative Normal NEGATIVE [facility] Comment on above: Performed By: #### KAROL MERCHANT ####[facility] Zrkhftvogs2776 [place] [address]Dr. Tadeo Smyth Hemoglobin Ql (U) TRACE-LYSED Abnormal NEGATIVE [facility] Comment on above: Performed By: #### KAROL MERCHANT ####[facility] Prnfpxanhm1478 [place] [address]Dr. Tadeo Smyth Ketones Ql (U) TRACE Abnormal NEGATIVE [facility] Comment on above: Performed By: #### SANDRO MERCHANTRO ####[facility] [address]hbqesefb[address] [place], [place] [address]Dr. Tadeo Smyth LEUKOCYTES Negative Normal NEGATIVE [facility] Comment on above: Performed By: #### KAROL MERCHANT ####[facility] Jzxbtdgqik4[address] [place], [place] [address]Dr. Tadeo Smyth Nitrite Ql (U) Negative Normal NEGATIVE [facility] Comment on above: Performed By: #### KAROL MERCHANT ####[facility] Drijtxwtxg[address] [place], [place] [address]Dr. Tadeo Smyth pH (U) 6.0 [pH] Normal 5-9 [facility] Comment on above: Performed By: #### KAROL MERCHANT ####[facility] Zikifldcjj[address] [place], [place] [address]Dr. Tadeo Smyth SPEC GRAVITY >=1.030 Abnormal 1.005-<=1.0 25 [facility] Comment on above: Performed By: #### KAROL MERCHANT ####[facility] Vmxstvwnjg[address] [place], [place] [address]Dr. Tadeo Smyth UA PROTEIN TRACE Normal NEGATIVE/ TRACE [facility] Comment on above: Performed By: #### KAROL MERCHANT ####[facility] Mvciutxmmx[address] [place], [place] [address]Dr. Tadeo Smyth UR MICRO IND INDICATED Normal [facility] Comment on above: Performed By: #### KAROL MERCHANT ####[facility] [address]qqawznu[address] [place], [place] [address]Dr. Tadeo Smyht Urobilinogen Qn (U) 0.2 {Benito'U}/dL Normal 0.2 - 1. 0 [facility] Comment on above: Performed By: #### E KAROL FRANCISCO ####[facility] Rrvibtdqvl0716 [place] [address]Dr. Tadeo Smyth LACTATE/LACTIC ACIDon 2021 Lactate [Moles/Vol] 1.3 mmol/L Normal 0.4-1.9 [facility] Comment on above: Performed By: #### L ACT ####[facility] Oovwtirzbj0425 [place] [address]Dr. Tadeo Smyth LIPASEon 08-08-2022 Lipase [Catalytic activity/Vol] 120.0 U/L Normal 73.0-393.0 [facility] Comment on above: Performed By: #### C MP, VIJI, LIPA, CMADM ####[facility] Vlnvtspegu2344 [place] [address]Dr. Tadeo Smyth PROF 14(COMP METB)on 022 Albumin [Mass/Vol] 3.8 g/dL Normal 3.4-5.0 [facility] Comment on above: Performed By: #### C MP, VIJI, LIPA, CMADM ####[facility] Qfljqbrzda8915 [place] [address]Dr. Tadeo Smyth Albumin/Globulin [Mass ratio] 1.1 {ratio} Normal [facility] Comment on above: Performed By: #### C MP, VIJI, LIPA, CMADM ####[facility] Zexxqjtafx0500 [place] [address]Dr. Tadeo Smyth ALP [Catalytic activity/Vol] 145 U/L Critically high 46-116 [facility] Comment on above: Performed By: #### C MP, VIJI, LIPA, CMADM ####[facility] Fundtnuvtc1029 [place] [address]Dr. Tadeo Smyth ALT [Catalytic activity/Vol] 30 U/L Normal 14-59 [facility] Comment on above: Performed By: #### C MP, VIJI, LIPA, CMADM ####[facility] Nvwgnnptla7840 [place] [address]Dr. Tadeo Smyth Anion gap [Moles/Vol] 11.5 mmol/L Normal Th e [facility] Comment on above: Performed By: #### C MP, VIJI, LIPA, CMADM ####[facility] Clezzbmiee6780 [place] [address]Dr. Tadeo Smyth AST [Catalytic activity/Vol] 17 U/L Normal 15-37 [facility] Comment on above: Performed By: #### C MP, VIJI, LIPA, CMADM ####[facility] Hefazxwlpk4902 [place] [address]Dr. Tadeo Smyth Bilirubin [Mass/Vol] 0.1 mg/dL Critically low 0.2-1.0 [facility] Comment on above: Performed By: #### C MP, VIJI, LIPA, CMADM ####[facility] Fpmieqyryg2075 [place] [address]Dr. Tadeo Smyth Calcium [Mass/Vol] 8.9 mg/dL Normal 8.5-10.1 [facility] Comment on above: Performed By: #### C MP, VIJI, LIPA, CMADM ####[facility] Pulpdgdopq4615 [place] [address]Dr. Tadeo Smyth Chloride [Moles/Vol] 104 mmol/L Normal 98-107 [facility] Comment on above: Performed By: #### C MP, VIJI, LIPA, CMADM ####[facility] Egxlspuhek4146 [place] [address]Dr. Tadeo Smyth CO2 [Moles/Vol] 27.2 mmol/L Normal 21.0-32.0 [facility] Comment on above: Performed By: #### C MP, VIJI, LIPA, CMADM ####[facility] Dxcqwhffoe1652 [place] [address]Dr. Tadeo Smyth Creatinine [Mass/Vol] 0.90 mg/dL Normal 0.55-1.02 [facility] Comment on above: Performed By: #### C MP, VIJI, LIPA, CMADM ####[facility] Cwbasdglor0262 [place] [address]Dr. Tadeo Smyth EGFR-AF KYRGYZ >60 Normal >=60 [facility] Comment on above: Performed By: #### C MP, VIJI, LIPA, CMADM ####[facility] Zfcagqlevj3887 [place] [address]Dr. Tadeo Smyth EGFR-NON AF KYRGYZ >60 Normal >=60 [facility] Comment on above: Performed By: #### C MP, VIJI, LIPA, CMADM ####[facility] Tnyphijnii2431 [place] [address]Dr. Tadeo Smyth Globulin (S) [Mass/Vol] 3.5 g/dL Normal [facility] Comment on above: Performed By: #### C MP, VIJI, LIPA, CMADM ####[facility] Fhjcilfjwl7899 [place] [address]Dr. Tadeo Smyth Glucose [Mass/Vol] 98 mg/dL Normal 74-106 [facility] Comment on above: Performed By: #### C MP, VIJI, LIPA, CMADM ####[facility] Jnmshtirmf4123 [place] [address]Dr. Tadeo Smyth Potassium [Moles/Vol] 3.7 mmol/L Normal 3.5-5.1 [facility] Comment on above: Performed By: #### C MP, VIJI, LIPA, CMADM ####[facility] Oxifkwpbcl1440 [place] [address]Dr. Tadeo Smyth Protein [Mass/Vol] 7.3 g/dL Normal 6.4-8.2 [facility] Comment on above: Performed By: #### C MP, VIJI, LIPA, CMADM ####[facility] [address]narfvgsp[address] [place] [address]Dr. Tadeo Smyth Sodium [Moles/Vol] 139 mmol/L Normal 136-145 [facility] Comment on above: Performed By: #### C MP, VIJI, LIPA, CMADM ####[facility] Voyduhxzau[address] [place] [address]Dr. Tadeo Smyth Urea nitrogen [Mass/Vol] 25.0 mg/dL Critically high 7.0-18.0 [facility] Comment on above: Performed By: #### C VIJI GARCIA LIPA, NIMISHA ####[facility] [address]zsefgjan[address] [place] [address]Dr. Tadeo Smyth Urea nitrogen/Creatinine [Mass ratio] 27.8 mg/mg Normal [facility] Comment on above: Performed By: #### C VIJI GARCIA LIPA, NIMISHA ####[facility] [address]se[address]pjd[address] [place] [address]Dr. Tadeo Smyth URINE MICROSCOPIC ONLYon BACTERIA NONE SEEN Normal NONE SEEN [facility] Comment on above: Performed By: #### KAROL MERCHANT ####[facility] Ihiyfsnpth[address] [place] [address]Dr. Tadeo Smyth Bacteria identified Cx Nom (U) NOT INDICATED Normal [facility] Comment on above: Performed By: #### SANDRO MERCHANTRO ####[facility] Nehfalqchw[address] [place] [address]Dr. Tadeo Smyth CAST NONE SEEN Normal NONE SEEN [facility] Comment on above: Performed By: #### KAROL MERCHANT ####[facility] Fjefipvoax[address] [place] [address]Dr. Tadeo Smyth Crystals LM Nom (Urine sed) NONE SEEN Normal NONE SEEN [facility] Comment on above: Performed By: #### SANDRO MERCHANTRO ####[facility] Lvjuikgkvv24[address] [place] [address]Dr. Tadeo Smyth Epithelial cells LM Ql (Urine sed) FEW Abnormal NONE SEEN /RARE [facility] Comment on above: Performed By: #### SANDRO MERCHANTRO ####[facility] Uzmuazacbd6[address] [place] [address]Dr. Tadeo Smyth MUCOUS NONE SEEN Normal NONE SEEN [facility] Comment on above: Performed By: #### SANDRO MERCHANTRO ####[facility] Xfujerljvo62[address] [place] [address]Dr. Tadeo Smyth RBC 2-5 Abnormal 0-2 [facility] Comment on above: Performed By: #### KAROL MERCHANT ####[facility] Yryzvkptgh5823 [place] [address]Dr. Tadeo Haja WBC NONE SEEN Normal NONE SEEN [facility] Comment on above: Performed By: #### E KAROL FRANCISCO ####[facility] Okzmrammok[address] [place], [place] [address]Dr. Margotnicole Smyth AMYLASEon 07-21-2022 Amylase [Catalytic activity/Vol] 49 U/L Normal 25-115 [facility] Comment on above: Performed By: #### L IPA, VIJI, CMP ####[facility] Rszurfujpp[address] [place], [place] [address]Dr. Margotnicole Smyth CBC AUTO DIFFon 07-21-2022 BASO # 0.0 103/ul Normal 0.0-0.1 [facility] Comment on above: Performed By: #### C BC ####[facility] Udywsfyjxi[address] [place], [place] [address]Dr. Tadeo Smyth Basophils/100 WBC (Bld) 0.6 % Normal 0.2-2.0 [facility] Comment on above: Performed By: #### C BC ####[facility] Qjrdjqdlhl4[address] [place], [place] [address]Dr. Tadeo Smyth EO # 0.2 103/ul Normal 0.0-0.7 [facility] Comment on above: Performed By: #### C BC ####[facility] Vzxnhqxvsf[address] [place], [place] [address]Dr. Tadeo Smyth Eosinophils/100 WBC (Bld) 3.1 % Normal 0.9-7.0 [facility] Comment on above: Performed By: #### C BC ####[facility] Qavhkdpigd107[address] [place], [place] [address]Dr. Tadeo Smyth Erythrocyte distribution width (RBC) [Ratio] 13.2 % Normal 11.0-15.0 [facility] Comment on above: Performed By: #### C BC ####[facility] Qufkimigzv[address] [place], [place] [address]Dr. Tadeo Smyth Hematocrit (Bld) [Volume fraction] 35.7 % Critically low 36.0-48.0 [facility] Comment on above: Performed By: #### C BC ####[facility] Wnujdrcqyc8246 [place] [address]DrNeo Tadeo Smyth Hemoglobin (Bld) [Mass/Vol] 11.6 g/dL Critically low 12.0-16.0 [facility] Comment on above: Performed By: #### C BC ####[facility] Bxqrzbfpoz[address] [place], [place] [address]DrNeo Smyth IG # 0.01 10e3/ul Normal 0.00-0.03 [facility] Comment on above: Performed By: #### C BC ####[facility] Rnlkckwjek8[address] [place], [place] [address]DrNeo Smyth IG % 0.2 % Normal 0.0-0.5 [facility] Comment on above: Performed By: #### C BC ####[facility] Frmzqwqhth[address] [place], [place] [address]DrNeo Smyth LYMPH # 1.9 103/ul Normal 1.2-3.8 [facility] Comment on above: Performed By: #### C BC ####[facility] Alvrqveaia[address] [place], [place] [address]DrNeo Smyth Lymphocytes/100 WBC (Bld) 34.8 % Normal 20.5-60.0 [facility] Comment on above: Performed By: #### C BC ####[facility] Mopomcerfh[address] [place], [place] [address]DrNeo Smyth MANUAL DIFF REQ NO Normal [facility] Comment on above: Performed By: #### C BC ####[facility] Rbefieprps7[address] [place], [place] [address]DrNeo Smyth MCH (RBC) [Entitic mass] 29.1 pg Normal 26.7-34.0 [facility] Comment on above: Performed By: #### C BC ####[facility] Vutpiftjef[address] [place], [place] [address]DrNeo Smyth MCHC (RBC) [Mass/Vol] 32.5 g/dL Normal 29.9-35.2 [facility] Comment on above: Performed By: #### C BC ####[facility] Urdbavewwv48[address] [place] [address]DrNeo Smyth MCV (RBC) [Entitic vol] 89.7 fL Normal 81.0-99.0 [facility] Comment on above: Performed By: #### C BC ####[facility] Zyjqsjmpgq38[address] [place], [place] [address]DrNeo Smyth MONO # 0.3 103/ul Normal 0.3-0.8 [facility] Comment on above: Performed By: #### C BC ####[facility] Wnamxferrn[address] [place], [place] [address]DrNeo Smyth Monocytes/100 WBC (Bld) 6.1 % Normal 1.7-12.0 [facility] Comment on above: Performed By: #### C BC ####[facility] Tyuplfmyds[address] [place], [place] [address]DrNeo Smyth NEUT # 3.0 103/ul Normal 1.4-6.5 [facility] Comment on above: Performed By: #### C BC ####[facility] Ecamhozynu04[address] [place], [place] [address]DrNeo Smyth Neutrophils/100 WBC (Bld) 55.2 % Normal 43.0-75.0 [facility] Comment on above: Performed By: #### C BC ####[facility] Ifyqfxxibl[address] [place], [place] [address]DrNeo Smyth Platelet mean volume (Bld) [Entitic vol] 9.0 fL Critically low 9.5-13.5 [facility] Comment on above: Performed By: #### C BC ####[facility] Hsltidvjnm[address] [place], [place] [address]DrNeo Smyth PLT 358 103/ul Normal 150-450 [facility] Comment on above: Performed By: #### C BC ####[facility] Tzwsdmlwlz[address] [place], [place] [address]DrNeo Smyth RBC 3.98 106/ul Critically low 4.20-5.40 [facility] Comment on above: Performed By: #### C BC ####[facility] Ixlzyziefd44[address] [place] [address]Dr. Tadeo Smyth WBC 5.4 103/ul Normal 4.0-11.0 [facility] Comment on above: Performed By: #### C BC ####[facility] Sahdstfhfi[address] [place] [address]Dr. Tadeo Smyth LIPASEon 07-21-2022 Lipase [Catalytic activity/Vol] 54.0 U/L Critically low 73.0-393.0 [facility] Comment on above: Performed By: #### L VIJI HALL, CMP ####[facility] Cfaxjoknte[address] [place], [place] [address]Dr. Tadeo Smyth PROF 14(COMP METB)on 022 Albumin [Mass/Vol] 3.5 g/dL Normal 3.4-5.0 [facility] Comment on above: Performed By: #### L VIJI HALL, CMP ####[facility] Mgggqbezbm6[address] [place] [address]Dr. Tadeo Smyth Albumin/Globulin [Mass ratio] 0.9 {ratio} Normal [facility] Comment on above: Performed By: #### L VIJI HALL, CMP ####[facility] Iovomtwnxs9304 [place] [address]Dr. Tadeo Smyth ALP [Catalytic activity/Vol] 127 U/L Critically high 46-116 [facility] Comment on above: Performed By: #### L VIJI HALL, CMP ####[facility] Xbcxixacjq5205 [place] [address]Dr. Tadeo Smyth ALT [Catalytic activity/Vol] 16 U/L Normal 14-59 [facility] Comment on above: Performed By: #### L VIJI HALL, CMP ####[facility] Jrfvlyiuds0963 [place] [address]Dr. Tadeo Smyth Anion gap [Moles/Vol] 10.6 mmol/L Normal [facility] Comment on above: Performed By: #### L IPA, VIJI, CMP ####[facility] Czfgscmiiw12[address] [place] [address]Dr. Tadeo Smyth AST [Catalytic activity/Vol] 16 U/L Normal 15-37 [facility] Comment on above: Performed By: #### L IPA VIJI, CMP ####[facility] Xxitbtjavg9804 [place] [address]Dr. Tadeo Smyth Bilirubin [Mass/Vol] 0.3 mg/dL Normal 0.2-1.0 [facility] Comment on above: Performed By: #### L IPA VIJI, CMP ####[facility] Zarucedgan[address] [place], [place] [address]Dr. Tadeo Smyth Calcium [Mass/Vol] 9.1 mg/dL Normal 8.5-10.1 [facility] Comment on above: Performed By: #### L IPA VIJI, CMP ####[facility] Npimynxndr[address] [place], [place] [address]Dr. Tadeo Smyth Chloride [Moles/Vol] 104 mmol/L Normal 98-107 [facility] Comment on above: Performed By: #### L IPA VIJI, CMP ####[facility] Cdgpzrskvo98[address] [place], [place] [address]Dr. Tadeo Smyth CO2 [Moles/Vol] 28.0 mmol/L Normal 21.0-32.0 [facility] Comment on above: Performed By: #### L IPA VIJI, CMP ####[facility] Ugvvsnhrhd[address] [place], [place] [address]Dr. Tadeo Smyth Creatinine [Mass/Vol] 0.96 mg/dL Normal 0.55-1.02 [facility] Comment on above: Performed By: #### L IPA VIJI, CMP ####[facility] Buxsjpocai[address] [place], [place] [address]Dr. Tadeo Smyth EGFR-AF KYRGYZ >60 Normal >=60 [facility] Comment on above: Performed By: #### L IPA, VIJI, CMP ####[facility] Eocctkcxzv[address] [place], [place] [address]Dr. Tadeo Smyth EGFR-NON AF KYRGYZ >60 Normal >=60 [facility] Comment on above: Performed By: #### L VIJI HALL, CMP ####[facility] Ltkitrwfor9867 [place] [address]Dr. Tadeo Smyth Globulin (S) [Mass/Vol] 3.8 g/dL Normal [facility] Comment on above: Performed By: #### L VIJI HALL, CMP ####[facility] Zmslwangqk4[address] [place] [address]Dr. Tadeo Smyth Glucose [Mass/Vol] 93 mg/dL Normal 74-106 [facility] Comment on above: Performed By: #### L VIJI HALL, CMP ####[facility] [address]qoekdjs[address] [place], [place] [address]Dr. Tadeo Smyth Potassium [Moles/Vol] 3.6 mmol/L Normal 3.5-5.1 [facility] Comment on above: Performed By: #### L VIJI HALL, CMP ####[facility] Vvzyncjkdn0[address] [place], [place] [address]Dr. Tadeo Smyth Protein [Mass/Vol] 7.3 g/dL Normal 6.4-8.2 [facility] Comment on above: Performed By: #### L VIJI HALL, CMP ####[facility] K[address]wfvsgkd[address] [place], [place] [address]Dr. Tadeo Smyth Sodium [Moles/Vol] 139 mmol/L Normal 136-145 [facility] Comment on above: Performed By: #### L VIJI HALL, CMP ####[facility] Cvqhhgmfei43[address] [place], [place] [address]Dr. Tadeo Smyth Urea nitrogen [Mass/Vol] 16.0 mg/dL Normal 7.0-18.0 [facility] Comment on above: Performed By: #### L VIJI HALL, CMP ####[facility] Qlxjvauxmt[address] [place], [place] [address]Dr. Tadeo Smyth Urea nitrogen/Creatinine [Mass ratio] 16.7 mg/mg Normal [facility] Comment on above: Performed By: #### L VIJI HALL, CMP ####[facility] Ecqymkmfpz[address] [place], [place] [address]Dr. Tadeo Smyth XR ABD FLAT UP_PA Kasey 07-21 XR ABD FLAT UP_PA CH Normal [facility] CULTURE URINEon 07-10-2022 CULTURE URINE Normal [facility] Comment on above: Performed By: #### U RCX ####[facility] Quosyvdwbf37[address] [place] [address]Dr. Tadeo Haja INSULINon 07-09-2022 Insulin 15.9 uIU/mL Normal 2.6-24.9 [facility] Comment on above: Performed By: #### I NSULIN ####[facility] Ugwicmdgyc14[address] [place], [place] [address]Dr. Tadeo Smyth CBC AUTO DIFFon 07-08-2022 BASO # 0.0 103/ul Normal 0.0-0.1 [facility] Comment on above: Performed By: #### C BC ####[facility] Qakstzbouf[address] [place], [place] [address]Dr. Tadeo Smyth Basophils/100 WBC (Bld) 0.6 % Normal 0.2-2.0 [facility] Comment on above: Performed By: #### C BC ####[facility] Nyujgagmeg[address] [place], [place] [address]Dr. Tadeo Smyth EO # 0.2 103/ul Normal 0.0-0.7 [facility] Comment on above: Performed By: #### C BC ####[facility] Byvylozuii[address] [place], [place] [address]Dr. Tadeo Smyth Eosinophils/100 WBC (Bld) 3.4 % Normal 0.9-7.0 [facility] Comment on above: Performed By: #### C BC ####[facility] R[address]qgqkaqtr32[address] [place], [place] [address]Dr. Tadeo Smyth Erythrocyte distribution width (RBC) [Ratio] 13.1 % Normal 11.0-15.0 [facility] Comment on above: Performed By: #### C BC ####[facility] Rkqlmtnkky[address] [place], [place] [address]Dr. aTdeo Smyth Hematocrit (Bld) [Volume fraction] 42.4 % Normal 36.0-48.0 [facility] Comment on above: Performed By: #### C BC ####[facility] Frigxngdln[address] [place] [address]Dr. Tadeo Smyth Hemoglobin (Bld) [Mass/Vol] 13.7 g/dL Normal 12.0-16.0 [facility] Comment on above: Performed By: #### C BC ####[facility] Egyavehdms9247 [place] [address]Dr. Tadeo Smyth IG # 0.01 10e3/ul Normal 0.00-0.03 [facility] Comment on above: Performed By: #### C BC ####[facility] Cpzfabxoli038[address] [place], [place] [address]Dr. Tadeo Haja IG % 0.2 % Normal 0.0-0.5 [facility] Comment on above: Performed By: #### C BC ####[facility] Unvkkiffur[address] [place], [place] [address]Dr. Margotnicole Haja LYMPH # 2.1 103/ul Normal 1.2-3.8 [facility] Comment on above: Performed By: #### C BC ####[facility] [address]uzncsuxtq65[address] [place], [place] [address]Dr. Margotnicole Smyth Lymphocytes/100 WBC (Bld) 41.2 % Normal 20.5-60.0 [facility] Comment on above: Performed By: #### C BC ####[facility] Cqmgmqtsoy[address] [place] [address]Dr. Tadeo Smyth MANUAL DIFF REQ NO Normal [facility] Comment on above: Performed By: #### C BC ####[facility] [address]qmhobvxkc93[address] [place], [place] [address]Dr. Tadeo Smyth MCH (RBC) [Entitic mass] 28.8 pg Normal 26.7-34.0 [facility] Comment on above: Performed By: #### C BC ####[facility] Eotzqtvdmh[address] [place] [address]Dr. Tadeo Smyth MCHC (RBC) [Mass/Vol] 32.3 g/dL Normal 29.9-35.2 [facility] Comment on above: Performed By: #### C BC ####[facility] [address]swlr[address] [place] [address]Dr. Tadeo Smyth MCV (RBC) [Entitic vol] 89.3 fL Normal 81.0-99.0 [facility] Comment on above: Performed By: #### C BC ####[facility] Sxejifqelr[address] [place] [address]Dr. Tadeo Smyth MONO # 0.4 103/ul Normal 0.3-0.8 [facility] Comment on above: Performed By: #### C BC ####[facility] Zkaspchaxk5427 [place] [address]Dr. Tadeo Haja Monocytes/100 WBC (Bld) 8.1 % Normal 1.7-12.0 [facility] Comment on above: Performed By: #### C BC ####[facility] Xhdamgopkj[address] [place], [place] [address]Dr. Tadeo Smyth NEUT # 2.4 103/ul Normal 1.4-6.5 [facility] Comment on above: Performed By: #### C BC ####[facility] Uk[address] [place], [place] [address]Dr. Tadeo Haja Neutrophils/100 WBC (Bld) 46.5 % Normal 43.0-75.0 [facility] Comment on above: Performed By: #### C BC ####[facility] Ugzuekpksw92[address] [place], [place] [address]Dr. Tadeo Haja Platelet mean volume (Bld) [Entitic vol] 9.3 fL Critically low 9.5-13.5 [facility] Comment on above: Performed By: #### C BC ####[facility] [address]yt[address]svm[address] [place], [place] [address]Dr. Tadeo Haja PLT 443 103/ul Normal 150-450 [facility] Comment on above: Performed By: #### C BC ####[facility] Slrupkheww[address] [place] [address]Dr. Tadeo Smyth RBC 4.75 106/ul Normal 4.20-5.40 [facility] Comment on above: Performed By: #### C BC ####[facility] Myumpxbjcu87[address] [place] [address]Dr. Tadeo Smyth WBC 5.1 103/ul Normal 4.0-11.0 [facility] Comment on above: Performed By: #### C BC ####[facility] Yhbubfonlp64[address] [place] [address]Dr. Tadeo Haja FREE THYROXINE INDEX T7on FTI 2.91 Normal 1.30-4.50 [facility] Comment on above: Performed By: #### T 7, LIPID, TSH, CMP ####[facility] Wzmanoxqsv26[address] [place] [address]Dr. Tadeo Haja T3U 31.0 % Normal 30.0-39.0 [facility] Comment on above: Performed By: #### T 7, LIPID, TSH, CMP ####[facility] Vpxvfszpxq4504 [place] [address]Dr. Tadeo Smyth T4 [Mass/Vol] 9.40 ug/dL Normal 4.80-13.90 [facility] Comment on above: Performed By: #### T 7, LIPID, TSH, CMP ####[facility] [address]fgl[address]hwt[address] [place], [place] [address]Dr. Tadeo Smyth GLYCOHEMOGLOBIN A1Con 2021 ADA RECOMMENDATION SEE BELOW Normal [facility] Comment on above: Result Comment: ADA RECOMMENDED LIMIT 4.0 - 6.0 ADA THERAPEUTIC TARGET < 7.0 ACTION SUGGESTED > 7.0 Performed By: #### A 1C ####[facility] Wryzyauesy[address] [place] [address]Dr. Tadeo Smyth Glucose [Mass/Vol] 120 mg/dL Normal [facility] Comment on above: Performed By: #### A 1C ####[facility] [address]rol[address] [place], [place] [address]Dr. Tadeo Smyth HbA1c (Bld) [Mass fraction] 5.8 % Normal 4.5-6.2 [facility] Comment on above: Performed By: #### A 1C ####[facility] [address]smxhk[address] [place], [place] [address]Ma. Tadeo Smyth IRONon 07-08-2022 Iron [Mass/Vol] 59.0 ug/dL Normal 50.0-170.0 [facility] Comment on above: Performed By: #### I KEEGAN ####[facility] Qcgzmvsrsm1039 [place], [place] [address]Jb. Tadeo Smyth LIPID PROFILEon 07-08-2022 CHOL-HDL RATIO NORM SEE BELOW Normal [facility] Comment on above: Result Comment: 3.3 - 4.4 LOW RISK 4.4 - 7.1 AVERAGE RISK 7.1 - 11.0 MODERATE RISK >11.0 HIGH RISK Performed By: #### T 7, LIPID, TSH, CMP ####[facility] [address]yxxpyhdr[address] [place] [id number]. Tadeo Smyth Cholesterol [Mass/Vol] 227 mg/dL Critically high <=200 [facility] Comment on above: Performed By: #### T 7, LIPID, TSH, CMP ####[facility] [address]mrlprki[address] [place] [id number]. Tadeo Smyth Cholesterol in HDL [Mass/Vol] 67 mg/dL Critically high 40-60 [facility] Comment on above: Performed By: #### T 7, LIPID, TSH, CMP ####[facility] Ultjvvshba[address] [place] [id number]. Tadeo Smyth Cholesterol in LDL [Mass/Vol] 139.0 mg/dL Normal [facility] Comment on above: Performed By: #### T 7, LIPID, TSH, CMP ####[facility] Efnccpdbqy5[address] [place] [id number]. Tadeo Smyth Cholesterol.total/Cho lesterol in HDL [Mass ratio] 3.4 {ratio} Normal [facility] Comment on above: Performed By: #### T 7, LIPID, TSH, CMP ####[facility] Ymlmfsgrwx[address] [place] [id number]. Margotlan Smyth HDL NORMAL > or = 60 mg/dl - LO W CARDIOVASCULAR RISK <40 mg/dl - HIGH CARDIOVASCULAR RISK Normal [facility] Comment on above: Performed By: #### T 7, LIPID, TSH, CMP ####[facility] Bxiijtxlui[address] [place] [address]Dr. Tadeo Smyth LDL CALC NORMAL SEE BELOW Normal [facility] Comment on above: Result Comment: <100 mg/dl OPTIMAL 100 - 129 mg/dl NEAR OR ABOVE OPTIMAL 130 - 159 mg/dl BORDERLINE HIGH 160 - 189 mg/dl HIGH >190 mg/dl VERY HIGH Performed By: #### T 7, LIPID, TSH, CMP ####[facility] Ajakvjyfsp[address] [place] [address]Dr. Tadeo Smyth Triglyceride [Mass/Vol] 105 mg/dL Normal <=150 [facility] Comment on above: Performed By: #### T 7, LIPID, TSH, CMP ####[facility] Cuntequwrg[address] [place] [address]Dr. Tadeo Smyth VLDL CALC 21.0 mg/dL Normal [facility] Comment on above: Performed By: #### T 7, LIPID, TSH, CMP ####[facility] Tlyamdyotq57[address] [place] [address]Dr. Tadeo Smyth OCC BLD IMMUNO SCREENon 11- OCCULT BLOOD Negative Normal NEGATIVE [facility] Comment on above: Performed By: #### O BSCRN ####[facility] [address]mulydnkuc[address] [place] [address]Dr. Tadeo Smyth PROF 14(COMP METB)on 022 Albumin [Mass/Vol] 3.7 g/dL Normal 3.4-5.0 [facility] Comment on above: Performed By: #### T 7, LIPID, TSH, CMP ####[facility] [address]uxoqruexv3[address] [place] [address]Dr. Tadeo Smyth Albumin/Globulin [Mass ratio] 0.8 {ratio} Normal [facility] Comment on above: Performed By: #### T 7, LIPID, TSH, CMP ####[facility] Tkybbzragh[address] [place] [address]Dr. Tadeo Smyth ALP [Catalytic activity/Vol] 141 U/L Critically high 46-116 [facility] Comment on above: Performed By: #### T 7, LIPID, TSH, CMP ####[facility] [address]em[address]grtorw[address] [place] [address]Dr. Tadeo Smyth ALT [Catalytic activity/Vol] 23 U/L Normal 14-59 [facility] Comment on above: Performed By: #### T 7, LIPID, TSH, CMP ####[facility] [address] [place] [address]Dr. Tadeo Smyth Anion gap [Moles/Vol] 9.8 mmol/L Normal [facility] Comment on above: Performed By: #### T 7, LIPID, TSH, CMP ####[facility] Yjwmilhx[address] [place], [place] [address]Dr. Tadeo Smyth AST [Catalytic activity/Vol] 13 U/L Critically low 15-37 [facility] Comment on above: Performed By: #### T 7, LIPID, TSH, CMP ####[facility] Ttrgwuvgjz[address] [place], [place] [address]Dr. Tadeo Smyth Bilirubin [Mass/Vol] 0.4 mg/dL Normal 0.2-1.0 [facility] Comment on above: Performed By: #### T 7, LIPID, TSH, CMP ####[facility] Xqivhbdzix[address] [place], [place] [address]Dr. Tadeo Smyth Calcium [Mass/Vol] 10.2 mg/dL Critically high 8.5-10.1 [facility] Comment on above: Performed By: #### T 7, LIPID, TSH, CMP ####[facility] Awocmzzfyw[address] [place], [place] [address]Dr. Tadeo Smyth Chloride [Moles/Vol] 101 mmol/L Normal 98-107 [facility] Comment on above: Performed By: #### T 7, LIPID, TSH, CMP ####[facility] Fmwn[address]wxl[address] [place], [place] [address]Dr. Tadeo Smyth CO2 [Moles/Vol] 32.8 mmol/L Critically high 21.0-32.0 [facility] Comment on above: Performed By: #### T 7, LIPID, TSH, CMP ####[facility] [address] [place] [address]Dr. Tadeo Smyth Creatinine [Mass/Vol] 0.92 mg/dL Normal 0.55-1.02 [facility] Comment on above: Performed By: #### T 7, LIPID, TSH, CMP ####[facility] [address] [place] [address]Dr. Tadeo Smyth EGFR-AF KYRGYZ >60 Normal >=60 [facility] Comment on above: Performed By: #### T 7, LIPID, TSH, CMP ####[facility] Ogeujgnfdr[address] [place], [place] [address]Dr. Tadeo Smyth EGFR-NON AF KYRGYZ >60 Normal >=60 [facility] Comment on above: Performed By: #### T 7, LIPID, TSH, CMP ####[facility] Vqmohhjvgn[address] [place], [place] [address]Dr. Tadeo Smyth Globulin (S) [Mass/Vol] 4.8 g/dL Normal [facility] Comment on above: Performed By: #### T 7, LIPID, TSH, CMP ####[facility] Vfshceueln[address] [place], [place] [address]Dr. Tadeo Smyth Glucose [Mass/Vol] 114 mg/dL Critically high 74-106 [facility] Comment on above: Performed By: #### T 7, LIPID, TSH, CMP ####[facility] [address]xs[address] [place] [address]Dr. Tadeo Smyth Potassium [Moles/Vol] 3.6 mmol/L Normal 3.5-5.1 [facility] Comment on above: Performed By: #### T 7, LIPID, TSH, CMP ####[facility] [address] [place] [address]Dr. Tadeo Smyth Protein [Mass/Vol] 8.5 g/dL Critically high 6.4-8.2 [facility] Comment on above: Performed By: #### T 7, LIPID, TSH, CMP ####[facility] Kbphydleaj07[address] [place], [place] [address]Dr. Tadeo Smyth Sodium [Moles/Vol] 140 mmol/L Normal 136-145 [facility] Comment on above: Performed By: #### T 7, LIPID, TSH, CMP ####[facility] Pfeyrdrmot67[address] [place], [place] [address]Dr. Tadeo Smyth Urea nitrogen [Mass/Vol] 23.0 mg/dL Critically high 7.0-18.0 [facility] Comment on above: Performed By: #### T 7, LIPID, TSH, CMP ####[facility] Wewzrnlqok30[address] [place], [place] [address]Dr. Tadeo Smyth Urea nitrogen/Creatinine [Mass ratio] 25.0 mg/mg Normal [facility] Comment on above: Performed By: #### T 7, LIPID, TSH, CMP ####[facility] Movbhgfeke[address] [place], [place] [address]Dr. Tadeo Smyth TSHon 07-08-2022 TSH 3.748 uIU/mL Critically high 0.358-3.740 [facility] Comment on above: Performed By: #### T 7, LIPID, TSH, CMP ####[facility] Ncnxhjqutb24[address] [place], [place] [address]Dr. Tadeo Smyth UA RANDOM W/MICROSCOPICon BACTERIA TRACE Abnormal NONE SEEN [facility] Comment on above: Performed By: #### U AMIC ####[facility] Vvdaogpfrn[address] [place], [place] [address]Dr. Tadeo Smyth Bilirubin Ql (U) Negative Normal NEGATIVE [facility] Comment on above: Performed By: #### U AMIC ####[facility] Trwsjqcvgv[address] [place], [place] [address]Dr. Tadeo Smyth CAST NONE SEEN Normal NONE SEEN [facility] Comment on above: Performed By: #### U AMIC ####[facility] Dcuxcmjdif7[address] [place], [place] [address]Dr. Tadeo Smyth Clarity (U) CLEAR Normal CLEAR [facility] Comment on above: Performed By: #### U AMIC ####[facility] Fcrfsfqfcu024[address] [place], [place] [address]Dr. Tadeo Smyth Color (U) YELLOW Normal YELLOW [facility] Comment on above: Performed By: #### U AMIC ####[facility] E[address]jo[address] [place] [address]Dr. Tadeo Smyth Crystals LM Nom (Urine sed) NONE SEEN Normal NONE SEEN [facility] Comment on above: Performed By: #### U AMIC ####[facility] Otmqosdnio[address] [place] [address]Dr. Tadeo Smyth Epithelial cells LM Ql (Urine sed) FEW Abnormal NONE SEEN /RARE [facility] Comment on above: Performed By: #### U AMIC ####[facility] Muf[address]kywww[address] [place] [address]Dr. Tadeo Smyth Glucose Ql (U) Negative Normal NEGATIVE [facility] Comment on above: Performed By: #### U AMIC ####[facility] [address]apmroll[address] [place] [address]Dr. Tadeo Smyth Hemoglobin Ql (U) SMALL Abnormal NEGATIVE [facility] Comment on above: Performed By: #### U AMIC ####[facility] H[address] [place], [place] [address]Dr. Tadeo Smyth Ketones Ql (U) TRACE Abnormal NEGATIVE [facility] Comment on above: Performed By: #### U AMIC ####[facility] Hwrgaqzzil[address] [place], [place] [address]Dr. Tadeo Smyth LEUKOCYTES TRACE Abnormal NEGATIVE [facility] Comment on above: Performed By: #### U AMIC ####[facility] [address] [place] [address]Dr. Tadeo Smyth MUCOUS NONE SEEN Normal NONE SEEN [facility] Comment on above: Performed By: #### U AMIC ####[facility] [address]iws[address] [place] [address]Dr. Tadeo Smyth Nitrite Ql (U) Negative Normal NEGATIVE [facility] Comment on above: Performed By: #### U AMIC ####[facility] Frvfpwvpcj[address] [place] [address]Dr. Tadeo Smyth pH (U) 6.5 [pH] Normal 5-9 [facility] Comment on above: Performed By: #### U AMIC ####[facility] [address] [place] [id number]. Tadeo Smyth RBC 5-10 Abnormal 0-2 [facility] Comment on above: Performed By: #### U AMIC ####[facility] [address] [place], [place] [address]Xh. Tadeo Smyth SPEC GRAVITY 1.020 Normal 1.005-<=1.0 25 [facility] Comment on above: Performed By: #### U AMIC ####[facility] [address] [place] [id number]. Tadeo Smyth UA PROTEIN 30 mg/dl Abnormal NEGATIVE/ TRACE [facility] Comment on above: Performed By: #### U AMIC ####[facility] [address]upiz[address] [place] [address]Dr. Tadeo Smyth Urobilinogen Qn (U) 0.2 {Benito'U}/dL Normal 0.2 - 1. 0 [facility] Comment on above: Performed By: #### U AMIC ####[facility] [address]ft[address] [place] [id number]. Tadeo Smyth WBC 2-5 Abnormal NONE SEEN [facility] Comment on above: Performed By: #### U AMIC ####[facility] N[address]zdlcmkx[address] [place] [address]Dr. Tadeo Smyth Covid-19 PCR (CVDTB)on 06-07 SARS-CoV-2 (COVID-19) RNA CHEN+probe Ql (Unsp spec) Not detected Normal NOT DETECTED [facility] Comment on above: Result [...] for this test is supported by the Assistance Specialist of Health and Human Service's declaration [...] be used). Performed By: #### C VDTBH ####[facility] Zesdjrrwdy[address] [place], [place] [address]Dr. Tadeo Smyth CULTURE URINEon 06-09-2022 CULTURE URINE Normal [facility] Comment on above: Performed By: #### U RCX ####[facility] Thrsikxgxd87[address] [place], [place] [address]Dr. Tadeo Smyth GI PANEL (PCR)on 06-07-2022 Adenovirus F 40/41 Not detected Normal NOT DETECTED [facility] Comment on above: Performed By: #### G IPANEL ####[facility] Aiistzetyx[address] [place], [place] [address]Dr. Tadeo Smyth Astrovirus Not detected Normal NOT DETECTED [facility] Comment on above: Performed By: #### G IPANEL ####[facility] Ecvgpgvksc[address] [place], [place] [address]Dr. Tadeo Smyth C. Diff toxin A/B Not detected Normal NOT DETECTED [facility] Comment on above: Performed By: #### G IPANEL ####[facility] Pxjtmufdsl[address] [place], [place] [address]Dr. Tadeo Smyth Campylobacter Not detected Normal NOT DETECTED [facility] Comment on above: Performed By: #### G IPANEL ####[facility] Osdeaoetnx[address] [place], [place] [address]Dr. Tadeo Smyth Cryptosporidium Not detected Normal NOT DETECTED [facility] Comment on above: Performed By: #### G IPANEL ####[facility] Xbkdduvnrr3[address] [place], [place] [address]Dr. Tadeo Smyth Cyclos. Cayetanensis Not detected Normal NOT DETECTED [facility] Comment on above: Performed By: #### G IPANEL ####[facility] Cuybvtxdfe24[address] [place], [place] [address]Dr. Tadeo Smyth E. Coli O157 Not Applicable Normal Not Applicable [facility] Comment on above: Performed By: #### G IPANEL ####[facility] Ereyepuwgl[address] [place], [place] [address]Dr. [facility] E. histolytica Not detected Normal NOT DETECTED [facility] Comment on above: Performed By: #### G IPANEL ####[facility] Vldpnnhtdq6[address] [place], [place] [address]Dr. [facility] EAEC Not detected Normal NOT DETECTED [facility] Comment on above: Performed By: #### G IPANEL ####[facility] Rcumghfmdj2626[address] [place], [place] [address]Dr. [facility] EIEC Not detected Normal NOT DETECTED [facility] Comment on above: Performed By: #### G IPANEL ####[facility] Uascwkzgcy29[address] [place], [place] [address]Dr. [facility] EPEC Not detected Normal NOT DETECTED [facility] Comment on above: Performed By: #### G IPANEL ####[facility] Upxuinmgfv8066[address] [place], [place] [address]Dr. [facility] ETEC Not detected Normal NOT DETECTED [facility] Comment on above: Performed By: #### G IPANEL ####[facility] Vqujqidybg[address] [place], [place] [address]Dr. nicole [facility] G. Lamblia Not detected Normal NOT DETECTED [facility] Comment on above: Performed By: #### G IPANEL ####[facility] Znntqvqdmm75[address] [place], [place] [address]Dr. [facility] GIPANEL CONTROLS PASSED Normal [facility] Comment on above: Performed By: #### G IPANEL ####[facility] Qyqfrptvyg97[address] [place], [place] [address]Dr. nicole Smyth DERRICKNL ARRON HEADER GI PANEL BACTERIA Normal T [facility] Comment on above: Performed By: #### G IPANEL ####[facility] Pqmctcyoul[address] [place], [place] [address]Dr. nicole Smyth DERRICKNLHD ECOLI GI PANEL DIARRHEAGEN IC E.COLI / SHIGELLA Normal [facility] Comment on above: Performed By: #### G IPANEL ####[facility] Gwvnjwihez[address] [place], [place] [address]Dr. Tadeo Smyth GIPNLHD INFO SEE BELOW Normal [facility] Comment on above: Result Comment: EAEC - Enteroaggregative E. Coli EPEC- Enteropathogenic E. Coli ETEC- Enterotoxigenic E. Coli lt/st STEC- Shigella-like toxin-producing E. Coli stx1/stx2 EIEC- Shigella/Enteroinvasive E. Coli Performed By: #### G IPANEL ####[facility] Niypsztndh[address] [place], [place] [address]Dr. Tadeo Smyth GIPNLHD PARASITES GI PANEL PARASITES Normal [facility] Comment on above: Performed By: #### G IPANEL ####[facility] Svlzkszvsz0[address] [place], [place] [address]Dr. Tadeo Smyth GIPNLHD VIRUS GI PANEL VIRUSES Normal [facility] Comment on above: Performed By: #### G IPANEL ####[facility] Eustkenwxx2455[address] [place], [place] [address]Dr. Tadeo Smyth Norovirus GI/GII Not detected Normal NOT DETECTED [facility] Comment on above: Performed By: #### G IPANEL ####[facility] Exidxymunw[address]19[address] [place], [place] [address]Dr. Tadeo Smyth P. Shigelloides Not detected Normal NOT DETECTED [facility] Comment on above: Performed By: #### G IPANEL ####[facility] Hxigqhlpdu023[address] [place], [place] [address]Dr. Tadeo Smyth Rotavirus A Not detected Normal NOT DETECTED [facility] Comment on above: Performed By: #### G IPANEL ####[facility] Epuauvuynj1832[address] [place], [place] [address]Dr. Tadeo Smyth Salmonella Not detected Normal NOT DETECTED [facility] Comment on above: Performed By: #### G IPANEL ####[facility] Bvgxocpqlh174[address] [place], [place] [address]Dr. Tadeo Smyth Sapovirus Not detected Normal NOT DETECTED [facility] Comment on above: Performed By: #### G IPANEL ####[facility] Hhayuilycj7[address] [place], [place] [address]Dr. Tadeo Smyth STEC Not detected Normal NOT DETECTED [facility] Comment on above: Performed By: #### G IPANEL ####[facility] Jvtwmlzkcp75[address] [place], [place] [address]Dr. Tadeo Smyth Vibrio Not detected Normal NOT DETECTED [facility] Comment on above: Performed By: #### G IPANEL ####[facility] Aehfgjyjdc7626[address] [place], [place] [address]Dr. Tadeo Smyht Vibrio Cholera Not detected Normal NOT DETECTED [facility] Comment on above: Performed By: #### G IPANEL ####[facility] Jlgfzosact6[address] [place], [place] [address]Dr. Tadeo Smyth Y. Enterocolitica Not detected Normal NOT DETECTED [facility] Comment on above: Performed By: #### G IPANEL ####[facility] Usfeczoisi036[address] [place], [place] [address]Dr. Tadeo Haja AMYLASEon 06-06-2022 Amylase [Catalytic activity/Vol] 61 U/L Normal 25-115 [facility] Comment on above: Performed By: #### A MY, LIPA ####[facility] Pkdpzzrbvk[address] [place], [place] [address]Dr. Tadeo Smyth CBC AUTO DIFFon 06-06-2022 BASO # 0.0 103/ul Normal 0.0-0.1 [facility] Comment on above: Performed By: #### C BC ####[facility] Emdzxcsmwy57[address] [place], [place] [address]Dr. Tadeo Haja Basophils/100 WBC (Bld) 0.5 % Normal 0.2-2.0 [facility] Comment on above: Performed By: #### C BC ####[facility] Fpceievozk11[address] [place], [place] [address]Dr. Margotnicole Haja EO # 0.2 103/ul Normal 0.0-0.7 [facility] Comment on above: Performed By: #### C BC ####[facility] Ucnqztkflm[address] [place], [place] [address]Dr. Tadeo Haja Eosinophils/100 WBC (Bld) 3.4 % Normal 0.9-7.0 [facility] Comment on above: Performed By: #### C BC ####[facility] Jmohajtvia[address] [place], [place] [address]Dr. Margotnicole Haja Erythrocyte distribution width (RBC) [Ratio] 13.2 % Normal 11.0-15.0 [facility] Comment on above: Performed By: #### C BC ####[facility] Aihrmirokz5[address] [place], [place] [address]Dr. Tadeo Smyth Hematocrit (Bld) [Volume fraction] 38.3 % Normal 36.0-48.0 [facility] Comment on above: Performed By: #### C BC ####[facility] C[address]qfutlwdn[address] [place], [place] [address]Dr. Tadeo Smyth Hemoglobin (Bld) [Mass/Vol] 12.0 g/dL Normal 12.0-16.0 [facility] Comment on above: Performed By: #### C BC ####[facility] Xambogkxuz[address] [place], [place] [address]Dr. Tadeo Smyth IG # 0.01 10e3/ul Normal 0.00-0.03 [facility] Comment on above: Performed By: #### C BC ####[facility] Txeqmbhohg8[address] [place], [place] [address]Dr. Tadeo Smyth IG % 0.2 % Normal 0.0-0.5 [facility] Comment on above: Performed By: #### C BC ####[facility] Kunksozdte8[address] [place], [place] [address]Dr. Tadeo Smyth LYMPH # 1.7 103/ul Normal 1.2-3.8 [facility] Comment on above: Performed By: #### C BC ####[facility] Sjsjckpirz[address] [place], [place] [address]Dr. Tadeo Smyth Lymphocytes/100 WBC (Bld) 28.1 % Normal 20.5-60.0 [facility] Comment on above: Performed By: #### C BC ####[facility] Ldvtpinmna7[address] [place], [place] [address]Dr. Tadeo Smyth MANUAL DIFF REQ NO Normal [facility] Comment on above: Performed By: #### C BC ####[facility] Re[address]spmxoku[address] [place] [address]Dr. Tadeo Smyth MCH (RBC) [Entitic mass] 28.5 pg Normal 26.7-34.0 [facility] Comment on above: Performed By: #### C BC ####[facility] Z[address]azmoiyad[address] [place] [address]Dr. Tadeo Smyth MCHC (RBC) [Mass/Vol] 31.3 g/dL Normal 29.9-35.2 [facility] Comment on above: Performed By: #### C BC ####[facility] Gsdrknnvex[address] [place], [place] [address]Dr. Tadeo Smyth MCV (RBC) [Entitic vol] 91.0 fL Normal 81.0-99.0 [facility] Comment on above: Performed By: #### C BC ####[facility] Wcjswcrcaf[address] [place], [place] [address]Dr. Tadeo Smyth MONO # 0.4 103/ul Normal 0.3-0.8 [facility] Comment on above: Performed By: #### C BC ####[facility] Uqpprdjbdw[address] [place], [place] [address]Dr. Tadeo Smyth Monocytes/100 WBC (Bld) 7.1 % Normal 1.7-12.0 [facility] Comment on above: Performed By: #### C BC ####[facility] Nkcrppdqvj05[address] [place], [place] [address]DrNeo Smyth NEUT # 3.6 103/ul Normal 1.4-6.5 [facility] Comment on above: Performed By: #### C BC ####[facility] Sjatyxvemy[address] [place], [place] [address]Dr. Tadeo Smyth Neutrophils/100 WBC (Bld) 60.7 % Normal 43.0-75.0 [facility] Comment on above: Performed By: #### C BC ####[facility] Rbuevwcayv08[address] [place], [place] [address]Dr. Tadeo Smyth Platelet mean volume (Bld) [Entitic vol] 8.9 fL Critically low 9.5-13.5 [facility] Comment on above: Performed By: #### C BC ####[facility] Wtz[address]tcxtj[address] [place] [address]Dr. Tadeo Smyth PLT 374 103/ul Normal 150-450 [facility] Comment on above: Performed By: #### C BC ####[facility] Kteqmaznom[address] [place] [address]Dr. Margotnicole Haja RBC 4.21 106/ul Normal 4.20-5.40 [facility] Comment on above: Performed By: #### C BC ####[facility] Wdxhktpqbw23[address] [place], [place] [address]Dr. Margotnicole Haja WBC 5.9 103/ul Normal 4.0-11.0 [facility] Comment on above: Performed By: #### C BC ####[facility] Zocmuvquaa035[address] [place], [place] [address]Dr. Tadeo Smyth CT ABD/PELV W CONon 06-06-[address] ABD/PELV W CON Normal [facility] ER URINE PROFILEon 2 Bilirubin Ql (U) Negative Normal NEGATIVE [facility] Comment on above: Performed By: #### KAROL MERCHANT ####[facility] Hrugjdycab[address] [place], [place] [address]Dr. Tadeo Smyth Clarity (U) CLOUDY Abnormal CLEAR [facility] Comment on above: Performed By: #### KAROL MERCHANT ####[facility] Usx[address]lqaq[address] [place] [address]Dr. Tadeo Smyth Color (U) LT. YELLOW Normal YELLOW [facility] Comment on above: Performed By: #### KAROL MERCHANT ####[facility] Qmluxcurgj[address] [place], [place] [address]Dr. Tadeo Smyth ERUAHD A micrscopic examina tion will be performed if indicated. Normal [facility] Comment on above: Performed By: #### KAROL MERCHANT ####[facility] Hdcuz[address] [place], [place] [id number]. Tadeo Smyth Glucose Ql (U) Negative Normal NEGATIVE [facility] Comment on above: Performed By: #### SANDRO MERCHANTRO ####[facility] Cdzwzyceoo[address] [place], [place] [address]Dr. Tadeo Smyth Hemoglobin Ql (U) TRACE-INTACT Abnormal NEGATIVE [facility] Comment on above: Performed By: #### RANDI MERCHANTICRO ####[facility] [address]jvqvchhzw[address] [place], [place] [address]Dr. Tadeo Smyth Ketones Ql (U) Negative Normal NEGATIVE [facility] Comment on above: Performed By: #### RANDI MERCHANTICRO ####[facility] Ezksorpcsu26[address] [place], [place] [address]Dr. Tadeo Smyth LEUKOCYTES SMALL Abnormal NEGATIVE [facility] Comment on above: Performed By: #### SANDRO MERCHANTRO ####[facility] Qxovezdcyz[address] [place], [place] [address]Dr. Tadeo Smyth Nitrite Ql (U) Negative Normal NEGATIVE [facility] Comment on above: Performed By: #### RANDI MERCHANTICRO ####[facility] Ynudczeodr[address] [place], [place] [address]Dr. Tadeo Smyth pH (U) 6.0 [pH] Normal 5-9 [facility] Comment on above: Performed By: #### SANDRO MERCHANTRO ####[facility] Hskfwpdkeq[address] [place], [place] [address]Dr. Tadeo Smyth SPEC GRAVITY 1.020 Normal 1.005-<=1.0 25 [facility] Comment on above: Performed By: #### RANDI MERCHANTICRO ####[facility] Uqwxkedxpt[address] [place], [place] [address]Dr. Tadeo Smyth UA PROTEIN Negative Normal NEGATIVE/ TRACE [facility] Comment on above: Performed By: #### RANDI MERCHANTICRO ####[facility] Nfsqzfgvaw47[address] [place], [place] [address]Dr. Tadeo Smyth UR MICRO IND INDICATED Normal [facility] Comment on above: Performed By: #### Matthew KAROL FRANCISCO ####[facility] Cfqumzwnbg[address] [place] [address]Dr. Tadeo Smyth Urobilinogen Qn (U) 0.2 {Benito'U}/dL Normal 0.2 - 1. 0 [facility] Comment on above: Performed By: #### E KAROL FRANCISCO ####[facility] Uhuuqapttz[address] [place] [address]Dr. Tadeo Smyth LIPASEon 06-06-2022 Lipase [Catalytic activity/Vol] 100.0 U/L Normal 73.0-393.0 [facility] Comment on above: Performed By: #### A TANYA LIPA ####[facility] Hilnbnsyzk6920[address] [place], [place] [address]Dr. Tadeo Smyth PROF 14(COMP METB)on 022 Albumin [Mass/Vol] 3.3 g/dL Critically low 3.4-5.0 [facility] Comment on above: Performed By: #### C MP ####[facility] Rlxuwullfy5[address] [place], [place] [address]Dr. Tadeo Smyth Albumin/Globulin [Mass ratio] 0.9 {ratio} Normal [facility] Comment on above: Performed By: #### C MP ####[facility] Bvrlcyiinq40[address] [place], [place] [address]Dr. Tadeo Smyth ALP [Catalytic activity/Vol] 140 U/L Critically high 46-116 [facility] Comment on above: Performed By: #### C MP ####[facility] Wrrjqhfuyf[address] [place], [place] [address]Dr. Tadeo Smyth ALT [Catalytic activity/Vol] 23 U/L Normal 14-59 [facility] Comment on above: Performed By: #### C MP ####[facility] Ejyqiwgerp153[address] [place], [place] [address]Dr. Tadeo Smyth Anion gap [Moles/Vol] 11.6 mmol/L Normal [facility] Comment on above: Performed By: #### C MP ####[facility] Msdvkfwabl045[address] [place], [place] [address]Dr. Tadeo Smyth AST [Catalytic activity/Vol] 18 U/L Normal 15-37 [facility] Comment on above: Performed By: #### C MP ####[facility] Enfwllnebv8156[address] [place], [place] [address]Dr. Tadeo Smyth Bilirubin [Mass/Vol] 0.2 mg/dL Normal 0.2-1.0 [facility] Comment on above: Performed By: #### C MP ####[facility] Hbgsjgaziv4588[address] [place], [place] [address]Dr. Tadeo Smyth Calcium [Mass/Vol] 8.8 mg/dL Normal 8.5-10.1 [facility] Comment on above: Performed By: #### C MP ####[facility] Nrkknuvdsr50[address] [place], [place] [address]Dr. Tdaeo Smyth Chloride [Moles/Vol] 109 mmol/L Critically high 98-107 [facility] Comment on above: Performed By: #### C MP ####[facility] Oipwrcoxlk9532[address] [place], [place] [address]Dr. Tadeo Haja CO2 [Moles/Vol] 26.3 mmol/L Normal 21.0-32.0 [facility] Comment on above: Performed By: #### C MP ####[facility] Uwcvxomdii37[address] [place], [place] [address]Dr. Margotnicole Haja Creatinine [Mass/Vol] 0.81 mg/dL Normal 0.55-1.02 [facility] Comment on above: Performed By: #### C MP ####[facility] Zbzhyypeso74[address] [place], [place] [address]Dr. Margotnicole Haja EGFR-AF KYRGYZ >60 Normal >=60 [facility] Comment on above: Performed By: #### C MP ####[facility] Ecvhxnrnss1977[address] [place], [place] [address]Dr. Tadeo Smyth EGFR-NON AF KYRGYZ >60 Normal >=60 [facility] Comment on above: Performed By: #### C MP ####[facility] Wthfjlzffr14[address] [place], [place] [address]Dr. Tadeo Smyth Globulin (S) [Mass/Vol] 3.7 g/dL Normal [facility] Comment on above: Performed By: #### C MP ####[facility] Zcxkldnbly0073 [place] [address]Dr. Tadeo Smyth Glucose [Mass/Vol] 90 mg/dL Normal 74-106 [facility] Comment on above: Performed By: #### C MP ####[facility] Erxeysfbvi1236 [place] [address]Dr. Tadeo Smyth Potassium [Moles/Vol] 3.9 mmol/L Normal 3.5-5.1 [facility] Comment on above: Performed By: #### C MP ####[facility] Inbvqcegvl0037 [place] [address]Dr. Tadeo Smyth Protein [Mass/Vol] 7.0 g/dL Normal 6.4-8.2 [facility] Comment on above: Performed By: #### C MP ####[facility] Avtpwlpqrd4[address] [place], [place] [address]Dr. Tadeo Smyth Sodium [Moles/Vol] 143 mmol/L Normal 136-145 [facility] Comment on above: Performed By: #### C MP ####[facility] Ldgedidons87[address] [place], [place] [address]Dr. Tadeo Haja Urea nitrogen [Mass/Vol] 12.0 mg/dL Normal 7.0-18.0 [facility] Comment on above: Performed By: #### C MP ####[facility] Qzzwycldba[address] [place], [place] [address]Dr. Margotnicole Haja Urea nitrogen/Creatinine [Mass ratio] 14.8 mg/mg Normal [facility] Comment on above: Performed By: #### C MP ####[facility] Glbgwvebbx4871 [place] [address]Dr. Margotnicole Haja URINE MICROSCOPIC ONLYon BACTERIA LARGE Abnormal NONE SEEN [facility] Comment on above: Performed By: #### E KAROL FRANCISCO ####[facility] Psnifpbtba[address] [place] [id number]. Margotnicole Haja Bacteria identified Cx Nom (U) INDICATED Normal [facility] Comment on above: Performed By: #### Matthew FRANCISCO UMICRO ####[facility] Uenhabxnjy4280 [place] [address]Dr. Tadeo Smyth CAST NONE SEEN Normal NONE SEEN [facility] Comment on above: Performed By: #### SANDRO MERCHANTRO ####[facility] Oajtviwhnl9738 [place] [address]Dr. Tadeo Smyth Crystals LM Nom (Urine sed) NONE SEEN Normal NONE SEEN [facility] Comment on above: Performed By: #### Matthew FRANCISCO UMICRO ####[facility] Fbceugmgcw5955 [place] [address]Dr. Tadeo Smyth Epithelial cells LM Ql (Urine sed) RARE Normal NONE SEEN /RARE [facility] Comment on above: Performed By: #### Matthew FRANCISCO UMICRO ####[facility] Egrfoaeded87[address] [place], [place] [address]Dr. Tadeo Smyth MUCOUS TRACE Abnormal NONE SEEN [facility] Comment on above: Performed By: #### SANDRO MERCHANTRO ####[facility] Tlztajnnej[address] [place], [place] [address]Dr. Tadeo Smyth RBC 0-2 Normal 0-2 [facility] Comment on above: Performed By: #### Matthew FRANCISCO UMICRO ####[facility] Atqlknmwgi[address] [place], [place] [address]Dr. Tadeo Smyth WBC 2-5 Abnormal NONE SEEN [facility] Comment on above: Performed By: #### SANDRO MERCHANTRO ####[facility] Ziebwzhbld[address] [place], [place] [address]Dr. Tadeo Smyth AMYLASEon 06-04-2022 Amylase [Catalytic activity/Vol] 61 U/L Normal 25-115 [facility] Comment on above: Performed By: #### A MY, CMP, LIPA ####[facility] Cbvlegnzjz9763 [place] [address]Dr. Tadeo Smyth CBC AUTO DIFFon 06-04-2022 BASO # 0.0 103/ul Normal 0.0-0.1 [facility] Comment on above: Performed By: #### C BC ####[facility] Ggxswfbluy32[address] [place] [id number]. Tadeo Smyth Basophils/100 WBC (Bld) 0.5 % Normal 0.2-2.0 [facility] Comment on above: Performed By: #### C BC ####[facility] Axalnztqmg1435 [place] [address]Dr. Tadeo Smyth EO # 0.3 103/ul Normal 0.0-0.7 [facility] Comment on above: Performed By: #### C BC ####[facility] Wtnjgpjmua6332 [place] [id number]. Tadeo Smyth Eosinophils/100 WBC (Bld) 4.7 % Normal 0.9-7.0 [facility] Comment on above: Performed By: #### C BC ####[facility] Rkvycoqhim[address] [place], [place] [address]Dr. Tadeo Smyth Erythrocyte distribution width (RBC) [Ratio] 13.2 % Normal 11.0-15.0 [facility] Comment on above: Performed By: #### C BC ####[facility] Bujqaukotu[address] [place], [place] [address]Dr. Tadeo Smyth Hematocrit (Bld) [Volume fraction] 36.9 % Normal 36.0-48.0 [facility] Comment on above: Performed By: #### C BC ####[facility] Leffhqxtbf[address] [place], [place] [address]Dr. Tadeo Smyth Hemoglobin (Bld) [Mass/Vol] 11.9 g/dL Critically low 12.0-16.0 [facility] Comment on above: Performed By: #### C BC ####[facility] Pedhylbwwp[address] [place], [place] [address]Dr. Tadeo Smyth IG # 0.01 10e3/ul Normal 0.00-0.03 [facility] Comment on above: Performed By: #### C BC ####[facility] Zfsvoabjrt[address] [place], [place] [address]Dr. Tadeo Smyth IG % 0.2 % Normal 0.0-0.5 [facility] Comment on above: Performed By: #### C BC ####[facility] Erorksofaq0683 [place] [address]Dr. Tadeo Smyth LYMPH # 2.3 103/ul Normal 1.2-3.8 [facility] Comment on above: Performed By: #### C BC ####[facility] Wernhnfydj8725 [place] [address]Dr. Tadeo Smyth Lymphocytes/100 WBC (Bld) 37.3 % Normal 20.5-60.0 [facility] Comment on above: Performed By: #### C BC ####[facility] Znhcenjmid8019 [place] [address]Dr. Tadeo Smyth MANUAL DIFF REQ NO Normal [facility] Comment on above: Performed By: #### C BC ####[facility] Kcddmbzekq6008 [place] [id number]. Tadeo Smyth MCH (RBC) [Entitic mass] 29.0 pg Normal 26.7-34.0 [facility] Comment on above: Performed By: #### C BC ####[facility] Glpzgjltzx4433 [place] [id number]. Tadeo Smyth MCHC (RBC) [Mass/Vol] 32.2 g/dL Normal 29.9-35.2 [facility] Comment on above: Performed By: #### C BC ####[facility] Esrnernqns9209 [place] [address]Dr. Tadeo Smyth MCV (RBC) [Entitic vol] 90.0 fL Normal 81.0-99.0 [facility] Comment on above: Performed By: #### C BC ####[facility] Nqqomgejdr[address] [place] [address]Dr. Tadeo Smyth MONO # 0.4 103/ul Normal 0.3-0.8 [facility] Comment on above: Performed By: #### C BC ####[facility] Znjyycyxjf4832 [place] [address]Dr. Tadeo Smyth Monocytes/100 WBC (Bld) 6.8 % Normal 1.7-12.0 [facility] Comment on above: Performed By: #### C BC ####[facility] Ofousqtbjo0855 [place], [place] [address]Ig. Tadeo Smyth NEUT # 3.2 103/ul Normal 1.4-6.5 [facility] Comment on above: Performed By: #### C BC ####[facility] Gagwyeucgt2975 [place] [address]Dr. Tadeo Smyth Neutrophils/100 WBC (Bld) 50.5 % Normal 43.0-75.0 [facility] Comment on above: Performed By: #### C BC ####[facility] Ntzpikugug8577 [place] [id number]. Tadeo Smyth Platelet mean volume (Bld) [Entitic vol] 8.9 fL Critically low 9.5-13.5 [facility] Comment on above: Performed By: #### C BC ####[facility] Dikeekslof2210 [place] [address]Dr. Tadeo Smyth PLT 387 103/ul Normal 150-450 [facility] Comment on above: Performed By: #### C BC ####[facility] Zmccblorji[address] [place], [place] [address]Dr. Tadeo Smyth RBC 4.10 106/ul Critically low 4.20-5.40 [facility] Comment on above: Performed By: #### C BC ####[facility] Vgfikiikvi2521 [place] [address]Dr. Tadeo Smyth WBC 6.2 103/ul Normal 4.0-11.0 [facility] Comment on above: Performed By: #### C BC ####[facility] Yydginbwrs1633 [place] [id number]. Tadeo Smyth CT ABD/PELV W CONon 06-04-[address] ABD/PELV W CON Normal [facility] ER URINE PROFILEon 2 Bilirubin Ql (U) Negative Normal NEGATIVE [facility] Comment on above: Performed By: #### E SANDRO FRANCISCORO ####[facility] Afewibdatd9240 [place] [id number]. Tadeo Smyth Clarity (U) CLEAR Normal CLEAR [facility] Comment on above: Performed By: #### Matthew FRANCISCO UMICRO ####[facility] Fcqgtsquju6304 [place] [address]Dr. Tadeo Smyth Color (U) LT. YELLOW Normal YELLOW [facility] Comment on above: Performed By: #### Matthew FRANCISCO UMICRO ####[facility] Aupkuwiaqq5339 [place] [address]Dr. Tadeo Smyth ERUAHD A micrscopic examina tion will be performed if indicated. Normal [facility] Comment on above: Performed By: #### Matthew FRANCISCO UMICRO ####[facility] Tzgvkbdaxi12[address] [place], [place] [address]Dr. Tadeo Smyth Glucose Ql (U) Negative Normal NEGATIVE [facility] Comment on above: Performed By: #### Matthew FRANCISCO UMICRO ####[facility] Gkdeyknwmn12[address] [place], [place] [address]Dr. Tadeo Smyth Hemoglobin Ql (U) TRACE-INTACT Abnormal NEGATIVE [facility] Comment on above: Performed By: #### Matthew FRANCISCO UMICRO ####[facility] Twgbrgcdzc49[address] [place], [place] [address]Dr. Tadeo Smyth Ketones Ql (U) Negative Normal NEGATIVE [facility] Comment on above: Performed By: #### Matthew FRANCISCO UMICRO ####[facility] Irqqscbwgf01[address] [place], [place] [address]Dr. Tadeo Smyth LEUKOCYTES Negative Normal NEGATIVE [facility] Comment on above: Performed By: #### Matthew FRANCISCO UMICRO ####[facility] Pjakhznqpe[address] [place], [place] [address]Dr. Tadeo Smyth Nitrite Ql (U) Negative Normal NEGATIVE [facility] Comment on above: Performed By: #### Matthew FRANCISCO UMICRO ####[facility] Ckhzyosmxr[address] [place], [place] [address]Dr. Tadeo Smyth pH (U) 6.5 [pH] Normal 5-9 [facility] Comment on above: Performed By: #### KAROL MERCHANT ####[facility] Epvrccsdpa5747 [place] [address]Dr. Tadeo Smyth SPEC GRAVITY 1.015 Normal 1.005-<=1.0 25 [facility] Comment on above: Performed By: #### KAROL MERCHANT ####[facility] Xqxxydegnm3512 [place] [address]Dr. Tadeo Smyth UA PROTEIN Negative Normal NEGATIVE/ TRACE [facility] Comment on above: Performed By: #### KAROL MERCHANT ####[facility] Ioljizryji3894 [place] [address]Dr. Tadeo Smyth UR MICRO IND INDICATED Normal [facility] Comment on above: Performed By: #### KAROL MERCHANT ####[facility] Ptcdvoladr2475 [place] [address]Dr. Tadeo Smyth Urobilinogen Qn (U) 0.2 {Benito'U}/dL Normal 0.2 - 1. 0 [facility] Comment on above: Performed By: #### KAROL MERCHANT ####[facility] Ixfsbyuood8608 [place] [address]Dr. Tadeo Smyth LIPASEon 06-04-2022 Lipase [Catalytic activity/Vol] 81.0 U/L Normal 73.0-393.0 [facility] Comment on above: Performed By: #### A MY, CMP, LIPA ####[facility] Aqelgvvsdt5263 [place] [address]Dr. Tadeo Smyth PROF 14(COMP METB)on 022 Albumin [Mass/Vol] 3.6 g/dL Normal 3.4-5.0 [facility] Comment on above: Performed By: #### A MY, CMP, LIPA ####[facility] Tpjfybucks[address] [place], [place] [address]Dr. Tadeo Smyth Albumin/Globulin [Mass ratio] 1.0 {ratio} Normal [facility] Comment on above: Performed By: #### A MY, CMP, LIPA ####[facility] N[address]zzfqjvom[address] [place], [place] [address]Dr. Tadeo Smyth ALP [Catalytic activity/Vol] 150 U/L Critically high 46-116 [facility] Comment on above: Performed By: #### A MY, CMP, LIPA ####[facility] Ndshvaztkj4082 [place] [address]Dr. [place] Smyth ALT [Catalytic activity/Vol] 23 U/L Normal 14-59 [facility] Comment on above: Performed By: #### A MY, CMP, LIPA ####[facility] Wzqvoqmidp7944 [place] [address]Dr. Tadeo Smyth Anion gap [Moles/Vol] 13.2 mmol/L Normal [facility] Comment on above: Performed By: #### A MY, CMP, LIPA ####[facility] Onzzcsrmml0237 [place] [address]Dr. Tadeo Smyth AST [Catalytic activity/Vol] 12 U/L Critically low 15-37 [facility] Comment on above: Performed By: #### A MY, CMP, LIPA ####[facility] Oygvtkihtx8564 [place] [address]Dr. Tadeo Smyth Bilirubin [Mass/Vol] 0.1 mg/dL Critically low 0.2-1.0 [facility] Comment on above: Performed By: #### A MY, CMP, LIPA ####[facility] Pulyrxajzy9333 [place] [address]Dr. Tadeo Smyth Calcium [Mass/Vol] 9.0 mg/dL Normal 8.5-10.1 [facility] Comment on above: Performed By: #### A MY, CMP, LIPA ####[facility] Obclzxtzwm7725 [place] [address]Dr. Tadeo Smyth Chloride [Moles/Vol] 104 mmol/L Normal 98-107 [facility] Comment on above: Performed By: #### A MY, CMP, LIPA ####[facility] Mxbyctfwca2061 [place] [address]Dr. Tadeo Smyth CO2 [Moles/Vol] 26.6 mmol/L Normal 21.0-32.0 [facility] Comment on above: Performed By: #### A MY, CMP, LIPA ####[facility] Ahkzjzucpn7737 [place] [address]Dr. Tadeo Smyth Creatinine [Mass/Vol] 0.97 mg/dL Normal 0.55-1.02 [facility] Comment on above: Performed By: #### A MY, CMP, LIPA ####[facility] Vkumihwayc5414 [place] [address]Dr. Tadeo Smyth EGFR-AF KYRGYZ >60 Normal >=60 [facility] Comment on above: Performed By: #### A MY, CMP, LIPA ####[facility] Ovnfnareqg10[address] [place], [place] [address]Dr. Tadeo Haja EGFR-NON AF KYRGYZ 60 mL/min/1.73m2 Normal >=60 [facility] Comment on above: Performed By: #### A MY, CMP, LIPA ####[facility] Arjunrkxvn7[address] [place], [place] [address]Dr. Tadeo Smyth Globulin (S) [Mass/Vol] 3.7 g/dL Normal [facility] Comment on above: Performed By: #### A MY, CMP, LIPA ####[facility] Hguglmtxhr[address] [place], [place] [address]Dr. Tadeo Smyth Glucose [Mass/Vol] 109 mg/dL Critically high 74-106 [facility] Comment on above: Performed By: #### A MY, CMP, LIPA ####[facility] Bnwcwhbxvc[address] [place], [place] [address]Dr. Tadeo Smyth Potassium [Moles/Vol] 3.8 mmol/L Normal 3.5-5.1 [facility] Comment on above: Performed By: #### A MY, CMP, LIPA ####[facility] [address]pvdprmjdn67[address] [place], [place] [address]Dr. Tadeo Smyth Protein [Mass/Vol] 7.3 g/dL Normal 6.4-8.2 [facility] Comment on above: Performed By: #### A MY, CMP, LIPA ####[facility] Reakxhagmh[address] [place], [place] [address]Dr. Tadeo Smyth Sodium [Moles/Vol] 140 mmol/L Normal 136-145 [facility] Comment on above: Performed By: #### A DIANN MARTÍNEZ, LIPA ####[facility] Rooipdfqnu5216 [place] [address]Dr. Tadeo Smyth Urea nitrogen [Mass/Vol] 21.0 mg/dL Critically high 7.0-18.0 [facility] Comment on above: Performed By: #### A DIANN MARTÍNEZ, LIPA ####[facility] Nryllghwec3041 [place] [address]Dr. Tadeo Haja Urea nitrogen/Creatinine [Mass ratio] 21.6 mg/mg Normal [facility] Comment on above: Performed By: #### A DIANN MARTÍNEZ, LIPA ####[facility] Ekqqxfqkwb0400 [place] [address]Dr. Tadeo Haja URINE MICROSCOPIC ONLYon BACTERIA NONE SEEN Normal NONE SEEN [facility] Comment on above: Performed By: #### SANDRO MERCHANTRO ####[facility] Jjxugyddrt2370 [place] [address]Dr. Margotnicole Smyth Bacteria identified Cx Nom (U) NOT INDICATED Normal [facility] Comment on above: Performed By: #### SANDRO MERCHANTRO ####[facility] Aixpumlyxo8940 [place] [address]Dr. Margotnicole Smyth CAST NONE SEEN Normal NONE SEEN [facility] Comment on above: Performed By: #### SANDRO MERCHANTRO ####[facility] Koqnsfsqov2550 [place] [address]Dr. Tadeo Smyth Crystals LM Nom (Urine sed) NONE SEEN Normal NONE SEEN [facility] Comment on above: Performed By: #### SANDRO MERCHANTRO ####[facility] Rdtrsvmqjk8172 [place] [address]Dr. Tadeo Smyth Epithelial cells LM Ql (Urine sed) FEW Abnormal NONE SEEN /RARE [facility] Comment on above: Performed By: #### SANDRO MERCHANTRO ####[facility] Egfoxeclxl8269 [place] [address]Dr. Tadeo Smyth MUCOUS NONE SEEN Normal NONE SEEN [facility] Comment on above: Performed By: #### KAROL MERCHANT ####[facility] Akrazubbum[address] [place] [id number]. Tadeo Haja RBC 0-2 Normal 0-2 [facility] Comment on above: Performed By: #### KAROL MERCHANT ####[facility] Wkqxzgiaoy9542 [place] [id number]. Tadeo Haja WBC NONE SEEN Normal NONE SEEN [facility] Comment on above: Performed By: #### KAROL MERCHANT ####[facility] Vlizzljrkb5219 [place] [address]Dr. Margotnicole Smyth MICRO OTHER TESTSOrdered By: Guillermo Rocha on 04-29-2022 Fecal WBC Lactoferrin Negative (04/29/22 8:00 AM) Normal Negative [facility] Man Sero CULTURE URINEon 03-31-2022 CULTURE URINE Normal [facility] Comment on above: Performed By: #### U RCX ####[facility] Kzcbuucufk[address] [place] [address]Dr. Margotnicole Smyth CBC AUTO DIFFon 03-30-2022 BASO # 0.0 103/ul Normal 0.0-0.1 [facility] Comment on above: Performed By: #### C BC ####[facility] [address]ygjxztrnd[address] [place] [address]Dr. Tadeo Smyth Basophils/100 WBC (Bld) 0.4 % Normal 0.2-2.0 [facility] Comment on above: Performed By: #### C BC ####[facility] Vugnqudtlh[address] [place] [id number]. Tadeo Smyth EO # 0.3 103/ul Normal 0.0-0.7 [facility] Comment on above: Performed By: #### C BC ####[facility] Hcpuyjjmyz1240 [place] [address]Dr. Tadeo Smyth Eosinophils/100 WBC (Bld) 5.1 % Normal 0.9-7.0 [facility] Comment on above: Performed By: #### C BC ####[facility] Wkhlnakwrl9043 [place] [address]Dr. Tadeo Smyth Erythrocyte distribution width (RBC) [Ratio] 12.8 % Normal 11.0-15.0 [facility] Comment on above: Performed By: #### C BC ####[facility] Vqrluvqwyi[address] [place], [place] [address]Dr. Tadeo Smyth Hematocrit (Bld) [Volume fraction] 36.4 % Normal 36.0-48.0 [facility] Comment on above: Performed By: #### C BC ####[facility] Kjruxysmmf[address] [place], [place] [address]Dr. Tadeo Smyth Hemoglobin (Bld) [Mass/Vol] 12.0 g/dL Normal 12.0-16.0 [facility] Comment on above: Performed By: #### C BC ####[facility] Uqhemcjfyo[address] [place], [place] [address]Dr. Tadeo Smyth IG # 0.02 10e3/ul Normal 0.00-0.03 [facility] Comment on above: Performed By: #### C BC ####[facility] Vpkahikaum[address] [place], [place] [address]Dr. Tadeo Smyth IG % 0.4 % Normal 0.0-0.5 [facility] Comment on above: Performed By: #### C BC ####[facility] Kibttffqll[address] [place], [place] [address]Dr. Tadeo Smyth LYMPH # 1.4 103/ul Normal 1.2-3.8 [facility] Comment on above: Performed By: #### C BC ####[facility] Fokmtwfixz4[address] [place], [place] [address]Dr. Tadeo Smyth Lymphocytes/100 WBC (Bld) 25.5 % Normal 20.5-60.0 [facility] Comment on above: Performed By: #### C BC ####[facility] Vyjklsefvj[address] [place], [place] [address]Dr. Tadeo Smyth MANUAL DIFF REQ NO Normal [facility] Comment on above: Performed By: #### C BC ####[facility] Fhihnszeco75[address] [place] [id number]. Tadeo Haja MCH (RBC) [Entitic mass] 29.1 pg Normal 26.7-34.0 [facility] Comment on above: Performed By: #### C BC ####[facility] Gfehnnpzmh4859 [place] [id number]. Tadeo Haja MCHC (RBC) [Mass/Vol] 33.0 g/dL Normal 29.9-35.2 [facility] Comment on above: Performed By: #### C BC ####[facility] Xjxpvvcjxr7542 [place] [address]Dr. Margotnicole Smyth MCV (RBC) [Entitic vol] 88.3 fL Normal 81.0-99.0 [facility] Comment on above: Performed By: #### C BC ####[facility] Szuvanzikb[address] [place], [place] [address]Dr. Tadeo Smyth MONO # 0.4 103/ul Normal 0.3-0.8 [facility] Comment on above: Performed By: #### C BC ####[facility] Jmvhchtdbr01[address] [place], [place] [address]Dr. Tadeo Smyth Monocytes/100 WBC (Bld) 7.1 % Normal 1.7-12.0 [facility] Comment on above: Performed By: #### C BC ####[facility] Yjhqycpvik89[address] [place], [place] [address]Dr. Tadeo Smyth NEUT # 3.4 103/ul Normal 1.4-6.5 [facility] Comment on above: Performed By: #### C BC ####[facility] Vezazioeaj56[address] [place], [place] [address]Dr. Tadeo Smyth Neutrophils/100 WBC (Bld) 61.5 % Normal 43.0-75.0 [facility] Comment on above: Performed By: #### C BC ####[facility] Xtpvzmnsca[address] [place], [place] [address]Dr. Tadeo Smyth Platelet mean volume (Bld) [Entitic vol] 8.8 fL Critically low 9.5-13.5 [facility] Comment on above: Performed By: #### C BC ####[facility] Ivqmnfpkhk0836 [place] [id number]. Margotnicole Haja PLT 324 103/ul Normal 150-450 [facility] Comment on above: Performed By: #### C BC ####[facility] Ihvptttiym7252 [place] [id number]. Margotnicole Haja RBC 4.12 106/ul Critically low 4.20-5.40 [facility] Comment on above: Performed By: #### C BC ####[facility] Kqummzltau4699 [place] [id number]. Tadeo Smyth WBC 5.5 103/ul Normal 4.0-11.0 [facility] Comment on above: Performed By: #### C BC ####[facility] Cxhnepodmu2520 [place] [address]Dr. Tadeo Smyth PROF 14(COMP METB)on 022 Albumin [Mass/Vol] 3.1 g/dL Critically low 3.4-5.0 [facility] Comment on above: Performed By: #### C MP ####[facility] Ysvewiivsr0924 [place] [address]Dr. Tadeo Smyth Albumin/Globulin [Mass ratio] 0.9 {ratio} Normal [facility] Comment on above: Performed By: #### C MP ####[facility] Qttoefkkkn4215 [place] [address]Dr. Tadeo Smyth ALP [Catalytic activity/Vol] 119 U/L Critically high 46-116 [facility] Comment on above: Performed By: #### C MP ####[facility] Yybpoqyltb5355 [place] [id number]. Tadeo Smyth ALT [Catalytic activity/Vol] 17 U/L Normal 14-59 [facility] Comment on above: Performed By: #### C MP ####[facility] Hltnwkqofd1881 [place] [id number]. Tadeo Smyth Anion gap [Moles/Vol] 12.0 mmol/L Normal [facility] Comment on above: Performed By: #### C MP ####[facility] Ujaoaupflb7412 [place] [address]Dr. Tadeo Smyth AST [Catalytic activity/Vol] 16 U/L Normal 15-37 [facility] Comment on above: Performed By: #### C MP ####[facility] Zzoxshmizf3936 [place] [address]Dr. Tadeo Smyth Bilirubin [Mass/Vol] 0.4 mg/dL Normal 0.2-1.0 [facility] Comment on above: Performed By: #### C MP ####[facility] Ebemcggskg7461 [place] [address]Dr. Tadeo Smyth Calcium [Mass/Vol] 8.9 mg/dL Normal 8.5-10.1 [facility] Comment on above: Performed By: #### C MP ####[facility] Brxenlpgaz[address] [place], [place] [address]Dr. Tadeo Smyth Chloride [Moles/Vol] 107 mmol/L Normal 98-107 [facility] Comment on above: Performed By: #### C MP ####[facility] Qubmzlpjvu475[address] [place], [place] [address]Dr. Tadeo Smyth CO2 [Moles/Vol] 26.9 mmol/L Normal 21.0-32.0 [facility] Comment on above: Performed By: #### C MP ####[facility] Vinilyzxlq6869[address] [place], [place] [address]Dr. Tadeo Smyth Creatinine [Mass/Vol] 0.82 mg/dL Normal 0.55-1.02 [facility] Comment on above: Performed By: #### C MP ####[facility] Snqrxvevxl1667 [place] [address]Dr. Tadeo Smyth EGFR-AF KYRGYZ >60 Normal >=60 [facility] Comment on above: Performed By: #### C MP ####[facility] Snhwieqqcx[address] [place], [place] [address]Dr. Tadeo Smyth EGFR-NON AF KYRGYZ >60 Normal >=60 [facility] Comment on above: Performed By: #### C MP ####[facility] Xbazuwvxrb0056 [place] [id number]. Tadeo Smyth Globulin (S) [Mass/Vol] 3.5 g/dL Normal [facility] Comment on above: Performed By: #### C MP ####[facility] Mhjhlksjxc3701 [place] [address]Dr. Tadeo Smyth Glucose [Mass/Vol] 104 mg/dL Normal 74-106 [facility] Comment on above: Performed By: #### C MP ####[facility] Uzmsabnmmw7660 [place] [address]Dr. Tadeo Smyth Potassium [Moles/Vol] 3.9 mmol/L Normal 3.5-5.1 [facility] Comment on above: Performed By: #### C MP ####[facility] Sdouhhyzsj6303 [place] [address]Dr. Tadeo Smyth Protein [Mass/Vol] 6.6 g/dL Normal 6.4-8.2 [facility] Comment on above: Performed By: #### C MP ####[facility] Wrhyvytxve[address] [place], [place] [address]Dr. Tadeo Smyth Sodium [Moles/Vol] 142 mmol/L Normal 136-145 [facility] Comment on above: Performed By: #### C MP ####[facility] Nshjudvlwf[address] [place], [place] [address]Dr. Tadeo Smyth Urea nitrogen [Mass/Vol] 5.0 mg/dL Critically low 7.0-18.0 [facility] Comment on above: Performed By: #### C MP ####[facility] Xwhfkidusn[address] [place], [place] [address]Dr. Tadeo Smyth Urea nitrogen/Creatinine [Mass ratio] 6.1 mg/mg Normal [facility] Comment on above: Performed By: #### C MP ####[facility] Olfifnxrqy119[address] [place], [place] [address]Dr. Tadeo Smyth CBC AUTO DIFFon 03-29-2022 BASO # 0.0 103/ul Normal 0.0-0.1 [facility] Comment on above: Performed By: #### C BC ####[facility] Odnukpteii0122 [place] [id number]. Tadeo Smyth Basophils/100 WBC (Bld) 0.4 % Normal 0.2-2.0 [facility] Comment on above: Performed By: #### C BC ####[facility] Qrloxbgaqs7368 [place] [address]Dr. Tadeo Smyth EO # 0.2 103/ul Normal 0.0-0.7 [facility] Comment on above: Performed By: #### C BC ####[facility] Okjizqvdsf[address] [place], [place] [address]Dr. Tadeo Smyth Eosinophils/100 WBC (Bld) 4.3 % Normal 0.9-7.0 [facility] Comment on above: Performed By: #### C BC ####[facility] Cakxnozydr6[address] [place], [place] [address]Dr. Tadeo Smyth Erythrocyte distribution width (RBC) [Ratio] 12.9 % Normal 11.0-15.0 [facility] Comment on above: Performed By: #### C BC ####[facility] Vbrjbdsrdv[address] [place], [place] [address]Dr. Tadeo Smyth Hematocrit (Bld) [Volume fraction] 33.8 % Critically low 36.0-48.0 [facility] Comment on above: Performed By: #### C BC ####[facility] Rvytqpwtcy[address] [place], [place] [address]Dr. Tadeo Smyth Hemoglobin (Bld) [Mass/Vol] 11.1 g/dL Critically low 12.0-16.0 [facility] Comment on above: Performed By: #### C BC ####[facility] Ljumckuidt[address] [place], [place] [address]Dr. Tadeo Smyth IG # 0.01 10e3/ul Normal 0.00-0.03 [facility] Comment on above: Performed By: #### C BC ####[facility] Xuxngqjvsx[address] [place], [place] [address]Dr. Tadeo Smyth IG % 0.2 % Normal 0.0-0.5 [facility] Comment on above: Performed By: #### C BC ####[facility] Pfowlapapk[address] [place] [id number]. Tadeo Smyth LYMPH # 1.5 103/ul Normal 1.2-3.8 [facility] Comment on above: Performed By: #### C BC ####[facility] Lslbpjvuse0845 [place] [address]Dr. Tadeo Smyth Lymphocytes/100 WBC (Bld) 29.9 % Normal 20.5-60.0 [facility] Comment on above: Performed By: #### C BC ####[facility] Wmomvytttr3464 [place] [address]Dr. Tadeo Haja MANUAL DIFF REQ NO Normal [facility] Comment on above: Performed By: #### C BC ####[facility] Lazugnotvu0691 [place] [address]Dr. Tadeo Haja MCH (RBC) [Entitic mass] 29.3 pg Normal 26.7-34.0 [facility] Comment on above: Performed By: #### C BC ####[facility] Mnhjnutzxt7893 [place] [address]Dr. Tadeo Smyth MCHC (RBC) [Mass/Vol] 32.8 g/dL Normal 29.9-35.2 [facility] Comment on above: Performed By: #### C BC ####[facility] Jxagrvmdwj2302 [place] [address]Dr. Tadeo Haja MCV (RBC) [Entitic vol] 89.2 fL Normal 81.0-99.0 [facility] Comment on above: Performed By: #### C BC ####[facility] Zvowgfvsfc8236 [place] [address]Dr. Tadeo Smyth MONO # 0.4 103/ul Normal 0.3-0.8 [facility] Comment on above: Performed By: #### C BC ####[facility] Tgqztoanke0078 [place] [address]Dr. Tadeo Haja Monocytes/100 WBC (Bld) 7.8 % Normal 1.7-12.0 [facility] Comment on above: Performed By: #### C BC ####[facility] Qdxeoxunwd3885 [place] [address]Dr. Tadeo Smyth NEUT # 2.8 103/ul Normal 1.4-6.5 [facility] Comment on above: Performed By: #### C BC ####[facility] Xavwquqxsd1644 [place] [address]Dr. Tadeo Smyth Neutrophils/100 WBC (Bld) 57.4 % Normal 43.0-75.0 [facility] Comment on above: Performed By: #### C BC ####[facility] Xmowqrrwpu0133 [place] [address]Dr. Tadeo Smyth Platelet mean volume (Bld) [Entitic vol] 8.9 fL Critically low 9.5-13.5 [facility] Comment on above: Performed By: #### C BC ####[facility] Clfzzfsjpr9009 [place] [address]Dr. Tadeo Smyth PLT 314 103/ul Normal 150-450 [facility] Comment on above: Performed By: #### C BC ####[facility] Algurkzsqi6363 [place] [address]Dr. Tadeo Smyth RBC 3.79 106/ul Critically low 4.20-5.40 [facility] Comment on above: Performed By: #### C BC ####[facility] Lgohmduhpk1675 [place] [address]Dr. Tadeo Smyth WBC 4.9 103/ul Normal 4.0-11.0 [facility] Comment on above: Performed By: #### C BC ####[facility] Eyewwmrdnv2282 [place] [address]Dr. Tadeo Smyth PROF 14(COMP METB)on 022 Albumin [Mass/Vol] 2.8 g/dL Critically low 3.4-5.0 [facility] Comment on above: Performed By: #### C MP ####[facility] Ditpanswfl7434 [place] [address]Dr. Tadeo Smyth Albumin/Globulin [Mass ratio] 0.8 {ratio} Normal [facility] Comment on above: Performed By: #### C MP ####[facility] Hfvzkemgis3449 [place] [address]Dr. Tadeo Smyth ALP [Catalytic activity/Vol] 117 U/L Critically high 46-116 [facility] Comment on above: Performed By: #### C MP ####[facility] Lpvengndut6344 [place] [id number]. Tadeo Smyth ALT [Catalytic activity/Vol] 13 U/L Critically low 14-59 [facility] Comment on above: Performed By: #### C MP ####[facility] Fzflsrgvzf0726 [place] [address]Dr. Tadeo Smyth Anion gap [Moles/Vol] 8.7 mmol/L Normal [facility] Comment on above: Performed By: #### C MP ####[facility] Mtdnlheuos4259 [place] [address]Dr. Tadeo Smyth AST [Catalytic activity/Vol] 12 U/L Critically low 15-37 [facility] Comment on above: Performed By: #### C MP ####[facility] Lktfjrvxiz5412 [place] [address]Dr. Tadeo Smyth Bilirubin [Mass/Vol] 0.4 mg/dL Normal 0.2-1.0 [facility] Comment on above: Performed By: #### C MP ####[facility] Fwsevtmoqi3259 [place] [address]Dr. Tadeo Smyth Calcium [Mass/Vol] 8.5 mg/dL Normal 8.5-10.1 [facility] Comment on above: Performed By: #### C MP ####[facility] Kgncknygwq2419 [place] [address]Dr. Tadeo Smyth Chloride [Moles/Vol] 108 mmol/L Critically high 98-107 [facility] Comment on above: Performed By: #### C MP ####[facility] Asrcwmqksj2724 [place] [address]Dr. Tadeo Smyth CO2 [Moles/Vol] 28.0 mmol/L Normal 21.0-32.0 [facility] Comment on above: Performed By: #### C MP ####[facility] Sigksomhve8488 [place] [id number]. Tadeo Smyth Creatinine [Mass/Vol] 0.74 mg/dL Normal 0.55-1.02 [facility] Comment on above: Performed By: #### C MP ####[facility] Caefehplgb6137 [place] [address]Dr. Tadeo Smyth EGFR-AF KYRGYZ >60 Normal >=60 [facility] Comment on above: Performed By: #### C MP ####[facility] Xizrrcogii5569 [place] [id number]. Tadeo Smyth EGFR-NON AF KYRGYZ >60 Normal >=60 [facility] Comment on above: Performed By: #### C MP ####[facility] Wwjmupdaza9438 [place] [address]Dr. Tadeo Smyth Globulin (S) [Mass/Vol] 3.4 g/dL Normal [facility] Comment on above: Performed By: #### C MP ####[facility] Ciqkthifla3009 [place] [address]Dr. Tadeo Smyth Glucose [Mass/Vol] 107 mg/dL Critically high 74-106 [facility] Comment on above: Performed By: #### C MP ####[facility] Ucchheyzam2696 [place] [address]Dr. Tadeo Smyth Potassium [Moles/Vol] 3.7 mmol/L Normal 3.5-5.1 [facility] Comment on above: Performed By: #### C MP ####[facility] Akjrukwlgz3654 [place] [address]Dr. Tadeo Smyth Protein [Mass/Vol] 6.2 g/dL Critically low 6.4-8.2 [facility] Comment on above: Performed By: #### C MP ####[facility] Ztfksqobkm5459 [place] [address]Dr. Tadeo Smyth Sodium [Moles/Vol] 141 mmol/L Normal 136-145 [facility] Comment on above: Performed By: #### C MP ####[facility] Ruhhibfftb6296 [place] [address]Dr. Tadeo Smyth Urea nitrogen [Mass/Vol] 7.0 mg/dL Normal 7.0-18.0 [facility] Comment on above: Performed By: #### C MP ####[facility] Gdeyuxfitr1637 [place] [address]Dr. Tadeo Smyth Urea nitrogen/Creatinine [Mass ratio] 9.5 mg/mg Normal [facility] Comment on above: Performed By: #### C MP ####[facility] Svozifebtc6800 [place] [address]Dr. Tadeo Smyth XR KUB 1 VIEWon 03-29-2022 XR KUB 1 VIEW Normal [facility] CBC AUTO DIFFon 03-28-2022 BASO # 0.0 103/ul Normal 0.0-0.1 [facility] Comment on above: Performed By: #### C BC ####[facility] Gaqgsabskm[address] [place], [place] [address]Dr. Margotnicole Haja Basophils/100 WBC (Bld) 0.7 % Normal 0.2-2.0 [facility] Comment on above: Performed By: #### C BC ####[facility] Qchtrkrtnw80[address] [place], [place] [address]Dr. Tadeo Haja EO # 0.2 103/ul Normal 0.0-0.7 [facility] Comment on above: Performed By: #### C BC ####[facility] Cwppckqnmu45[address] [place], [place] [address]Dr. Tadeo Haja Eosinophils/100 WBC (Bld) 3.3 % Normal 0.9-7.0 [facility] Comment on above: Performed By: #### C BC ####[facility] Utsxvtlmpj[address] [place], [place] [address]Dr. Tadeo Smyth Erythrocyte distribution width (RBC) [Ratio] 13.2 % Normal 11.0-15.0 [facility] Comment on above: Performed By: #### C BC ####[facility] Sibiqokrtc[address] [place], [place] [address]Dr. Tadeo Haja Hematocrit (Bld) [Volume fraction] 34.2 % Critically low 36.0-48.0 [facility] Comment on above: Performed By: #### C BC ####[facility] Ghetmviytc1040 [place] [address]Dr. Tadeo Smyth Hemoglobin (Bld) [Mass/Vol] 10.8 g/dL Critically low 12.0-16.0 [facility] Comment on above: Performed By: #### C BC ####[facility] Jwjrwmffou6432 [place] [address]Dr. Tadeo Smyth IG # 0.01 10e3/ul Normal 0.00-0.03 [facility] Comment on above: Performed By: #### C BC ####[facility] Mhfazdnpnk665[address] [place], [place] [address]Dr. Tadeo Smyth IG % 0.2 % Normal 0.0-0.5 [facility] Comment on above: Performed By: #### C BC ####[facility] Pgiajuoyuw27[address] [place], [place] [address]Dr. Tadeo Smyth LYMPH # 1.3 103/ul Normal 1.2-3.8 [facility] Comment on above: Performed By: #### C BC ####[facility] Ldmnkcfuah039[address] [place], [place] [address]Dr. Tadeo Smyth Lymphocytes/100 WBC (Bld) 28.4 % Normal 20.5-60.0 [facility] Comment on above: Performed By: #### C BC ####[facility] Drdtezosxm[address] [place], [place] [address]Dr. Margotnicole Smyth MANUAL DIFF REQ NO Normal [facility] Comment on above: Performed By: #### C BC ####[facility] Trrfsrtgpm[address] [place], [place] [address]Dr. Tadeo Smyth MCH (RBC) [Entitic mass] 28.3 pg Normal 26.7-34.0 [facility] Comment on above: Performed By: #### C BC ####[facility] Pvtyqzvmby[address] [place], [place] [address]Dr. Margotnicole Smyth MCHC (RBC) [Mass/Vol] 31.6 g/dL Normal 29.9-35.2 [facility] Comment on above: Performed By: #### C BC ####[facility] Jrzximzwxo2387 [place] [id number]. Tadeo Smyth MCV (RBC) [Entitic vol] 89.5 fL Normal 81.0-99.0 [facility] Comment on above: Performed By: #### C BC ####[facility] Idpsonhlij9959 [place] [address]Dr. Tadeo Smyth MONO # 0.3 103/ul Normal 0.3-0.8 [facility] Comment on above: Performed By: #### C BC ####[facility] Xqxcxcjblp0217 [place] [address]Dr. Tadeo Smyth Monocytes/100 WBC (Bld) 5.5 % Normal 1.7-12.0 [facility] Comment on above: Performed By: #### C BC ####[facility] Sraqqmlzhi6[address] [place], [place] [address]Dr. Tadeo Smyth NEUT # 2.8 103/ul Normal 1.4-6.5 [facility] Comment on above: Performed By: #### C BC ####[facility] Quwisqizng[address] [place], [place] [address]Dr. Tadeo Haja Neutrophils/100 WBC (Bld) 61.9 % Normal 43.0-75.0 [facility] Comment on above: Performed By: #### C BC ####[facility] Coxlewvykc[address] [place], [place] [address]Dr. Tadeo Haja Platelet mean volume (Bld) [Entitic vol] 9.1 fL Critically low 9.5-13.5 [facility] Comment on above: Performed By: #### C BC ####[facility] Jjerdskoid[address] [place], [place] [address]Dr. Tadeo Haja PLT 327 103/ul Normal 150-450 [facility] Comment on above: Performed By: #### C BC ####[facility] Vmckknbqes0407 [place] [id number]. Tadeo Smyth RBC 3.82 106/ul Critically low 4.20-5.40 [facility] Comment on above: Performed By: #### C BC ####[facility] Eljnusulcc9334 [place] [address]Dr. Tadeo Smyth WBC 4.5 103/ul Normal 4.0-11.0 [facility] Comment on above: Performed By: #### C BC ####[facility] Orabehmgjd[address] [place] [address]Dr. Tadeo Smyth POINT OF CARE GLUCOSEon 03-06 Glucose [Mass/Vol] 84 mg/dL Normal 74-106 [facility] Comment on above: Performed By: #### P OCGLUC ####[facility] Xqngykpebw2837 [place] [address]Dr. Tadeo Smyth PROF 14(COMP METB)on 022 Albumin [Mass/Vol] 2.9 g/dL Critically low 3.4-5.0 [facility] Comment on above: Performed By: #### C MP ####[facility] Mhauhyrmpg7240 [place] [address]Dr. Tadeo Smyth Albumin/Globulin [Mass ratio] 0.9 {ratio} Normal [facility] Comment on above: Performed By: #### C MP ####[facility] Bbabrolzer6616 [place] [address]Dr. Tadeo Smyth ALP [Catalytic activity/Vol] 119 U/L Critically high 46-116 [facility] Comment on above: Performed By: #### C MP ####[facility] Skbvzmjhvy7267 [place] [address]Dr. Tadeo Smyth ALT [Catalytic activity/Vol] 15 U/L Normal 14-59 [facility] Comment on above: Performed By: #### C MP ####[facility] Wghgbpkwlu2392 [place] [address]Dr. Tadeo Smyth Anion gap [Moles/Vol] 7.9 mmol/L Normal [facility] Comment on above: Performed By: #### C MP ####[facility] Gahtcnatxf5235 [place] [address]Dr. Tadeo Smyth AST [Catalytic activity/Vol] 11 U/L Critically low 15-37 [facility] Comment on above: Performed By: #### C MP ####[facility] Glyhqnktxd6036 [place] [address]Dr. Tadeo Smyth Bilirubin [Mass/Vol] 0.4 mg/dL Normal 0.2-1.0 [facility] Comment on above: Performed By: #### C MP ####[facility] Byfsdgwptv[address] [place], [place] [address]Dr. Tadeo Smyth Calcium [Mass/Vol] 8.7 mg/dL Normal 8.5-10.1 [facility] Comment on above: Performed By: #### C MP ####[facility] Fdmcybsozq[address] [place], [place] [address]Dr. Tadeo Smyth Chloride [Moles/Vol] 109 mmol/L Critically high 98-107 [facility] Comment on above: Performed By: #### C MP ####[facility] Attovkxaov18[address] [place], [place] [address]Dr. Tadeo Smyth CO2 [Moles/Vol] 27.9 mmol/L Normal 21.0-32.0 [facility] Comment on above: Performed By: #### C MP ####[facility] Vuucvnsjcv27[address] [place], [place] [address]Dr. Tadeo Smyth Creatinine [Mass/Vol] 0.75 mg/dL Normal 0.55-1.02 [facility] Comment on above: Performed By: #### C MP ####[facility] Ljdrwxdjcs[address] [place], [place] [address]Dr. Tadeo Haja EGFR-AF KYRGYZ >60 Normal >=60 [facility] Comment on above: Performed By: #### C MP ####[facility] Needeamxkv9940[address] [place], [place] [address]Dr. Tadeo Haja EGFR-NON AF KYRGYZ >60 Normal >=60 [facility] Comment on above: Performed By: #### C MP ####[facility] Uyyxlgkvhu55232[address] [place], [place] [address]Dr. Margotnicole Haja Globulin (S) [Mass/Vol] 3.3 g/dL Normal [facility] Comment on above: Performed By: #### C MP ####[facility] Dzfcvgnttw3303 [place] [address]Dr. Tadeo Smyth Glucose [Mass/Vol] 95 mg/dL Normal 74-106 [facility] Comment on above: Performed By: #### C MP ####[facility] Vgajagexom5163 [place] [address]Dr. Tadeo Smyth Potassium [Moles/Vol] 3.8 mmol/L Normal 3.5-5.1 [facility] Comment on above: Performed By: #### C MP ####[facility] Pkblnvkfsg2271 [place] [address]Dr. Tadeo Smyth Protein [Mass/Vol] 6.2 g/dL Critically low 6.4-8.2 [facility] Comment on above: Performed By: #### C MP ####[facility] Mtemtatgay65[address] [place], [place] [address]Dr. Tadeo Smyth Sodium [Moles/Vol] 141 mmol/L Normal 136-145 [facility] Comment on above: Performed By: #### C MP ####[facility] Djbununkhb27[address] [place], [place] [address]Dr. Tadeo Smyth Urea nitrogen [Mass/Vol] 8.0 mg/dL Normal 7.0-18.0 [facility] Comment on above: Performed By: #### C MP ####[facility] Qswfohxnan18[address] [place], [place] [address]Dr. Tadeo Smyth Urea nitrogen/Creatinine [Mass ratio] 10.7 mg/mg Normal [facility] Comment on above: Performed By: #### C MP ####[facility] Rodzeemhbh180[address] [place], [place] [address]Dr. 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 Comment on above: Performed By: #### U ACSIND, UMICRO ####[facility] Ynppynsoyb6395 [place] [address]Dr. Tadeo Smyth Clarity (U) SL CLOUDY Abnormal CLEAR [facility] Comment on above: Performed By: #### U ACSBLANE UMICRO ####[facility] Vrbbjsvqlu0693 [place] [address]Dr. Tadeo Smyth Color (U) LT. YELLOW Normal YELLOW [facility] Comment on above: Performed By: #### U ACSBLANE UMICRO ####[facility] Wuyhthwuut6529 [place] [address]Dr. Tadeo Smyth Glucose Ql (U) Negative Normal NEGATIVE [facility] Comment on above: Performed By: #### U ACSBLANE UMICRO ####[facility] Bwvmrcphqs0667 [place] [address]Dr. Tadeo Smyth Hemoglobin Ql (U) TRACE-INTACT Abnormal NEGATIVE [facility] Comment on above: Performed By: #### U ACSBLANE UMICRO ####[facility] Jscwdsdiwa4483 [place] [address]Dr. Tadeo Smyth Ketones Ql (U) TRACE Abnormal NEGATIVE [facility] Comment on above: Performed By: #### U ACSBLANE ICRO ####[facility] Brftnonatj360[address] [place], [place] [address]Dr. Tadeo Smyth LEUKOCYTES Negative Normal NEGATIVE [facility] Comment on above: Performed By: #### U MARE ICRO ####[facility] Nvaiuxqzjn34[address] [place], [place] [address]Dr. Tadeo Smyth Nitrite Ql (U) Negative Normal NEGATIVE [facility] Comment on above: Performed By: #### U MARE UMICRO ####[facility] Awmurvrsns2150 [place] [address]Dr. Tadeo Smyth pH (U) 6.5 [pH] Normal 5-9 [facility] Comment on above: Performed By: #### U MARE ICRO ####[facility] Soiedrauwm12[address] [place], [place] [address]Dr. Tadeo Smyth SPEC GRAVITY 1.015 Normal 1.005-<=1.0 25 [facility] Comment on above: Performed By: #### U MARE UMICRO ####[facility] Gniaczdnom6671 [place] [address]Dr. Tadeo Smyth UA PROTEIN Negative Normal NEGATIVE/ TRACE [facility] Comment on above: Performed By: #### U MARE UMICRO ####[facility] Wuzugolkbc4864 [place] [address]Dr. Tadeo Smyth UR MICRO IND INDICATED Normal [facility] Comment on above: Performed By: #### U MARE UMICRO ####[facility] Clblrchcgb9056 [place] [address]Dr. Tadeo Smyth Urobilinogen Qn (U) 0.2 {Benito'U}/dL Normal 0.2 - 1. 0 [facility] Comment on above: Performed By: #### U MARE UMICRO ####[facility] Onqsvfslci9704 [place] [address]Dr. Tadeo Smyth URINE MICROSCOPIC ONLYon BACTERIA MODERATE Abnormal NONE SEEN [facility] Comment on above: Performed By: #### U MARE UMICRO ####[facility] Monapqvbcu9939 [place] [address]Dr. Tadeo Smyth Bacteria identified Cx Nom (U) INDICATED Normal [facility] Comment on above: Performed By: #### U MARE UMICRO ####[facility] Sztrohohnt7706 [place] [address]Dr. Tadeo Smyth CAST NONE SEEN Normal NONE SEEN [facility] Comment on above: Performed By: #### U MARE UMICRO ####[facility] Keckfghxqo9430 [place] [address]Dr. Tadeo Smyth Crystals LM Nom (Urine sed) NONE SEEN Normal NONE SEEN [facility] Comment on above: Performed By: #### U MARE UMICRO ####[facility] Lhoesgpcbg3584 [place] [address]Dr. Tadeo Smyth Epithelial cells LM Ql (Urine sed) RARE Normal NONE SEEN /RARE [facility] Comment on above: Performed By: #### U ACSBLANE UMICRO ####[facility] Hjwgadoiag1103 [place] [address]Dr. Tadeo Smyth MUCOUS NONE SEEN Normal NONE SEEN [facility] Comment on above: Performed By: #### U MARE ICRO ####[facility] Heuonzjgkq4052 [place] [address]Dr. Tadeo Smyth RBC NONE SEEN Abnormal 0-2 [facility] Comment on above: Performed By: #### U MARE ICRO ####[facility] Zedjiltccx8936 [place] [address]Dr. Tadeo Smyth WBC 2-5 Abnormal NONE SEEN [facility] Comment on above: Performed By: #### U [facility] ####[facility] Sfizczajbh3874 [place] [address]Dr. Tadeo Smyth XR ABD FLAT UP_PA Kasey 03-28 XR ABD FLAT UP_PA CH Normal [facility] CBC AUTO DIFFon 03-27-2022 BASO # 0.0 103/ul Normal 0.0-0.1 [facility] Comment on above: Performed By: #### C BC ####[facility] Xuhlkbiobf[address] [place], [place] [address]Dr. Margotnicole Smyth Basophils/100 WBC (Bld) 0.5 % Normal 0.2-2.0 [facility] Comment on above: Performed By: #### C BC ####[facility] Wxmrrnhjta[address] [place], [place] [address]Dr. Tadeo Smyth EO # 0.2 103/ul Normal 0.0-0.7 [facility] Comment on above: Performed By: #### C BC ####[facility] Nmdtxbwjyj07[address] [place], [place] [address]Dr. Tadeo Smyth Eosinophils/100 WBC (Bld) 3.2 % Normal 0.9-7.0 [facility] Comment on above: Performed By: #### C BC ####[facility] Blgzqzaeir8141 [place] [address]Dr. Tadeo Smyth Erythrocyte distribution width (RBC) [Ratio] 13.1 % Normal 11.0-15.0 [facility] Comment on above: Performed By: #### C BC ####[facility] Mbhifeoqke2162 [place] [address]Dr. Tadeo Smyth Hematocrit (Bld) [Volume fraction] 34.8 % Critically low 36.0-48.0 [facility] Comment on above: Performed By: #### C BC ####[facility] Xkiugbjqyh4537 [place] [address]Dr. Tadeo Smyth Hemoglobin (Bld) [Mass/Vol] 11.3 g/dL Critically low 12.0-16.0 [facility] Comment on above: Performed By: #### C BC ####[facility] Yktuwottuc7[address] [place], [place] [address]Dr. Tadeo Smyth IG # 0.01 10e3/ul Normal 0.00-0.03 [facility] Comment on above: Performed By: #### C BC ####[facility] Msxjrngxen64[address] [place], [place] [address]Dr. Tadeo Smyth IG % 0.2 % Normal 0.0-0.5 [facility] Comment on above: Performed By: #### C BC ####[facility] Ojwkidejod7[address] [place], [place] [address]Dr. Tadeo Smyth LYMPH # 1.6 103/ul Normal 1.2-3.8 [facility] Comment on above: Performed By: #### C BC ####[facility] Bjykijrhia340[address] [place], [place] [address]Dr. Tadeo Smyth Lymphocytes/100 WBC (Bld) 29.1 % Normal 20.5-60.0 [facility] Comment on above: Performed By: #### C BC ####[facility] Vjfrjgaeye7[address] [place], [place] [address]Dr. Tadeo Smyth MANUAL DIFF REQ NO Normal [facility] Comment on above: Performed By: #### C BC ####[facility] Lzzngvvmgn[address] [place], [place] [address]Dr. Margotnicole Smyth MCH (RBC) [Entitic mass] 29.1 pg Normal 26.7-34.0 [facility] Comment on above: Performed By: #### C BC ####[facility] Smcqkpijdn3754 [place] [id number]. Tadeo Smyth MCHC (RBC) [Mass/Vol] 32.5 g/dL Normal 29.9-35.2 [facility] Comment on above: Performed By: #### C BC ####[facility] Pbdewriwhg1553 [place] [id number]. Tadeo Smyth MCV (RBC) [Entitic vol] 89.7 fL Normal 81.0-99.0 [facility] Comment on above: Performed By: #### C BC ####[facility] Mcwpofypmk2858 [place] [address]Dr. Tadeo Smyth MONO # 0.3 103/ul Normal 0.3-0.8 [facility] Comment on above: Performed By: #### C BC ####[facility] Mrzyziwrfr[address] [place], [place] [address]Dr. Tadeo Haja Monocytes/100 WBC (Bld) 5.7 % Normal 1.7-12.0 [facility] Comment on above: Performed By: #### C BC ####[facility] Jtnqeyilcm[address] [place], [place] [address]Dr. Tadeo Smyth NEUT # 3.5 103/ul Normal 1.4-6.5 [facility] Comment on above: Performed By: #### C BC ####[facility] Htlhaeooul[address] [place], [place] [address]Dr. Tadeo Smyth Neutrophils/100 WBC (Bld) 61.3 % Normal 43.0-75.0 [facility] Comment on above: Performed By: #### C BC ####[facility] Byyaiurmni8219 [place] [id number]. Tadeo Smyth Platelet mean volume (Bld) [Entitic vol] 9.1 fL Critically low 9.5-13.5 [facility] Comment on above: Performed By: #### C BC ####[facility] Sedjfmxvhk8180 [place] [id number]. Tadeo Haja PLT 355 103/ul Normal 150-450 [facility] Comment on above: Performed By: #### C BC ####[facility] Pifrtymukl0758 [place], [place] [address]Ar. Tadeo Smyth RBC 3.88 106/ul Critically low 4.20-5.40 [facility] Comment on above: Performed By: #### C BC ####[facility] Lyzttrycub6567 [place], [place] [address]Pq. Tadeo Smyth WBC 5.6 103/ul Normal 4.0-11.0 [facility] Comment on above: Performed By: #### C BC ####[facility] Wlfyqmtlcy5386 [place], [place] [address]Gs. Tade[address] S[address] CT ABD/PELV W CONon 03-27-20 CT ABD/PELV W CON Normal [facility] CT ABD/PELVIS WO CONon 03-27 CT ABD/PELVIS WO CON Normal [facility] Covid-19 PCR (CVDTB)on 03-06 SARS-CoV-2 (COVID-19) RNA CHEN+probe Ql (Unsp spec) Not detected Normal NOT DETECTED [facility] Comment on above: Result [...] for this test is supported by the [place] of Health and Human Service's declaration that [...] be used). Performed By: #### C VDTBH ####[facility] Qmcqcnkidy8070 [place], [place] [address]Wf. Tadeo Smyth ER URINE PROFILEon Bilirubin Ql (U) Negative Normal NEGATIVE [facility] Comment on above: Performed By: #### E RUR, PREGU ####[facility] Gswltrkvsl[address] [place], [place] [address]Dr. Tadeo Smyth Clarity (U) CLEAR Normal CLEAR [facility] Comment on above: Performed By: #### E RUR, PREGU ####[facility] Vleynlawns2764 [place] [address]Dr. Tadeo Smyth Color (U) LT. YELLOW Normal YELLOW [facility] Comment on above: Performed By: #### E RUR, PREGU ####[facility] Gmxnrklbuk15[address] [place], [place] [address]Dr. Tadeo Smyth ERUAHD A micrscopic examina tion will be performed if indicated. Normal [facility] Comment on above: Performed By: #### E RUR, PREGU ####[facility] Tfmnlrdrnr16[address] [place], [place] [address]Dr. Tadeo Smyth Glucose Ql (U) Negative Normal NEGATIVE [facility] Comment on above: Performed By: #### E RUR, PREGU ####[facility] Awlvujyqef9017[address] [place], [place] [address]Dr. Tadeo Smyth Hemoglobin Ql (U) SMALL Abnormal NEGATIVE [facility] Comment on above: Performed By: #### E RUR, PREGU ####[facility] Wbdeqycpod[address] [place], [place] [address]Dr. Tadeo Smyth Ketones Ql (U) TRACE Abnormal NEGATIVE [facility] Comment on above: Performed By: #### E RUR, PREGU ####[facility] Sgihhnkoxy23[address] [place], [place] [address]Dr. Tadeo Smyth LEUKOCYTES Negative Normal NEGATIVE [facility] Comment on above: Performed By: #### E RUR, PREGU ####[facility] Vpbgyfqxby32[address] [place], [place] [address]Dr. Tadeo Smyth Nitrite Ql (U) Negative Normal NEGATIVE [facility] Comment on above: Performed By: #### E RUR, PREGU ####[facility] Jphksqsiwq45[address] [place], [place] [address]Dr. Tadeo Smyth pH (U) 6.0 [pH] Normal 5-9 [facility] Comment on above: Performed By: #### [place] RUR, PREGU ####[facility] Ljvhzutpum87[address] [place], [place] [address]Dr. Tadeo Smyth SPEC GRAVITY >=1.030 Abnormal 1.005-<=1.0 25 [facility] Comment on above: Performed By: #### [place] RUR, PREGU ####[facility] Mpgkvlhete4[address] [place], [place] [address]Dr. Tadeo Smyth UA PROTEIN Negative Normal NEGATIVE/ TRACE [facility] Comment on above: Performed By: #### [place] FRANCISCO, PREGU ####[facility] Prkkcjdzzm[address] [place], [place] [address]Dr. Tadeo Smyth UR MICRO IND NOT INDICATED Normal [facility] Comment on above: Performed By: #### [place] FRANCISCO, PREGU ####[facility] Ehonififfl118[address] [place], [place] [address]Dr. Tadeo Smyth Urobilinogen Qn (U) 0.2 {Benito'U}/dL Normal 0.2 - 1. 0 [facility] Comment on above: Performed By: #### [place] FRANCISCO, PREGU ####[facility] R[address]qwadxjbi[address] [place], [place] [address]Dr. Tadeo Smyth LIPASEon 03-27-2022 Lipase [Catalytic activity/Vol] 126.0 U/L Normal 73.0-393.0 [facility] Comment on above: Performed By: #### L IPA, CMP ####[facility] Cjbydcrueg[address] [place], [place] [address]Dr. Tadeo Smyth URon 03-27-2022 , QUAL Negative Normal NEGATIVE [facility] Comment on above: Performed By: #### [place] RUR, PREGU ####[facility] [address]bqlkazfhc[address] [place], [place] [address]Dr. Tadeo Smyth PROF 14(COMP METB)on 022 Albumin [Mass/Vol] 3.6 g/dL Normal 3.4-5.0 [facility] Comment on above: Performed By: #### L IPA, CMP ####[facility] Vbhqxersvn3702 [place] [address]Dr. Tadeo Smyth Albumin/Globulin [Mass ratio] 1.1 {ratio} Normal [facility] Comment on above: Performed By: #### L IPA, CMP ####[facility] Paoqmjjssj8998 [place] [address]Dr. Tadeo Smyth ALP [Catalytic activity/Vol] 139 U/L Critically high 46-116 [facility] Comment on above: Performed By: #### L IPA, CMP ####[facility] Ahcpxzbrwk5875 [place] [address]Dr. Tadeo Smyth ALT [Catalytic activity/Vol] 18 U/L Normal 14-59 [facility] Comment on above: Performed By: #### L IPA, CMP ####[facility] Xvmocdjbdm[address] [place], [place] [address]Dr. Tadeo Smyth Anion gap [Moles/Vol] 10.7 mmol/L Normal [facility] Comment on above: Performed By: #### L IPA, CMP ####[facility] Vodozskmgh[address] [place], [place] [address]Dr. Tadeo Smyth AST [Catalytic activity/Vol] 11 U/L Critically low 15-37 [facility] Comment on above: Performed By: #### L IPA, CMP ####[facility] Zyeggeskyi[address] [place], [place] [address]Dr. Tadeo Smyth Bilirubin [Mass/Vol] 0.2 mg/dL Normal 0.2-1.0 [facility] Comment on above: Performed By: #### L IPA, CMP ####[facility] Okgnfdpsys41[address] [place], [place] [address]Dr. Tadeo Smyth Calcium [Mass/Vol] 9.0 mg/dL Normal 8.5-10.1 [facility] Comment on above: Performed By: #### L IPA, CMP ####[facility] Ikxdbqhjnz6[address] [place], [place] [address]Dr. Tadeo Smyth Chloride [Moles/Vol] 106 mmol/L Normal 98-107 [facility] Comment on above: Performed By: #### L IPA, CMP ####[facility] Qlioeixzfv1650 [place] [address]Dr. Tadeo Smyth CO2 [Moles/Vol] 26.9 mmol/L Normal 21.0-32.0 [facility] Comment on above: Performed By: #### L IPA, CMP ####[facility] Kbgjvpdlya6608 [place] [address]Dr. Tadeo Smyth Creatinine [Mass/Vol] 0.84 mg/dL Normal 0.55-1.02 [facility] Comment on above: Performed By: #### L IPA, CMP ####[facility] Ydtfwjkakd8032 [place] [address]Dr. Tadeo Smyth EGFR-AF KYRGYZ >60 Normal >=60 [facility] Comment on above: Performed By: #### L IPA, CMP ####[facility] Zawuuxzmqn[address] [place], [place] [address]Dr. Tadeo Smyth EGFR-NON AF KYRGYZ >60 Normal >=60 [facility] Comment on above: Performed By: #### L IPA, CMP ####[facility] [address]fwnufromp[address] [place], [place] [address]Dr. Tadeo Smyth Globulin (S) [Mass/Vol] 3.4 g/dL Normal [facility] Comment on above: Performed By: #### L IPA, CMP ####[facility] Cdmqjektvo8276 [place] [address]Dr. Tadeo Smyth Glucose [Mass/Vol] 96 mg/dL Normal 74-106 [facility] Comment on above: Performed By: #### L IPA, CMP ####[facility] Dchwgdhtwy3298 [place] [address]Dr. Tadeo Smyth Potassium [Moles/Vol] 3.6 mmol/L Normal 3.5-5.1 [facility] Comment on above: Performed By: #### L IPA, CMP ####[facility] Xqwervhlfz6477 [place] [address]Dr. Tadeo Smyth Protein [Mass/Vol] 7.0 g/dL Normal 6.4-8.2 [facility] Comment on above: Performed By: #### L IPA, CMP ####[facility] Cmdsasesgu5695 [place] [address]Dr. Tadeo Smyth Sodium [Moles/Vol] 140 mmol/L Normal 136-145 [facility] Comment on above: Performed By: #### L IPA, CMP ####[facility] [address]zutahfuav[address] [place], [place] [address]Dr. Tadeo Smyth Urea nitrogen [Mass/Vol] 23.0 mg/dL Critically high 7.0-18.0 [facility] Comment on above: Performed By: #### L IPA, CMP ####[facility] Mkxljmletu[address] [place], [place] [address]Dr. Margotnicole Haja Urea nitrogen/Creatinine [Mass ratio] 27.4 mg/mg Normal [facility] Comment on above: Performed By: #### L IPA, CMP ####[facility] Dowejxtovv[address] [place], [place] [address]Dr. Tadeo Haja GROUP A STREP CULTUREon S. pyogenes Ag Ql (Unsp spec) Normal [facility] Comment on above: Performed By: #### G RASTCX, SSCRN ####[facility] [address] [place], [place] [address]Dr. Tadeo Haja AMYLASEon 02-02-2022 Amylase [Catalytic activity/Vol] 37 U/L Normal 25-115 [facility] Comment on above: Performed By: #### C MP, VIJI, LIPA ####[facility] Aivxsgscda[address] [place], [place] [address]Dr. Tadeo Smyth CBC AUTO DIFFon 02-02-2022 BASO # 0.0 103/ul Normal 0.0-0.1 [facility] Comment on above: Performed By: #### C BC ####[facility] [address] [place], [place] [address]Dr. Tadeo Haja Basophils/100 WBC (Bld) 0.2 % Normal 0.2-2.0 [facility] Comment on above: Performed By: #### C BC ####[facility] E[address]sp[address] [place], [place] [address]Dr. Tdaeo Smyth EO # 0.0 103/ul Normal 0.0-0.7 [facility] Comment on above: Performed By: #### C BC ####[facility] [address]vjv[address] [place] [address]Dr. Tadeo Smyth Eosinophils/100 WBC (Bld) 0.2 % Critically low 0.9-7.0 [facility] Comment on above: Performed By: #### C BC ####[facility] [address]htoqfhn[address] [place] [address]Dr. Tadeo Smyth Erythrocyte distribution width (RBC) [Ratio] 13.4 % Normal 11.0-15.0 [facility] Comment on above: Performed By: #### C BC ####[facility] Thmbbpssqe0463 [place] [address]Dr. Tadeo Smyth Hematocrit (Bld) [Volume fraction] 36.8 % Normal 36.0-48.0 [facility] Comment on above: Performed By: #### C BC ####[facility] Pgfwldqene[address] [place] [address]Dr. Tadeo Smyth Hemoglobin (Bld) [Mass/Vol] 11.6 g/dL Critically low 12.0-16.0 [facility] Comment on above: Performed By: #### C BC ####[facility] Dyxfrojgwd6985 [place] [address]Dr. Tadeo Smyth IG # 0.08 10e3/ul Critically high 0.00-0.03 [facility] Comment on above: Performed By: #### C BC ####[facility] Tphhqozkrl6[address] [place] [address]Dr. Tadeo Smyth IG % 0.6 % Critically high 0.0-0.5 [facility] Comment on above: Performed By: #### C BC ####[facility] Rppslxqoam[address] [place] [address]Dr. Tadeo Smyth LYMPH # 0.9 103/ul Critically low 1.2-3.8 [facility] Comment on above: Performed By: #### C BC ####[facility] Qqxryhphin6[address] [place] [id number]. Tadeo Haja Lymphocytes/100 WBC (Bld) 6.9 % Critically low 20.5-60.0 [facility] Comment on above: Performed By: #### C BC ####[facility] Rsryeydxxv9561 [place] [id number]. Tadeo Haja MANUAL DIFF REQ NO Normal [facility] Comment on above: Performed By: #### C BC ####[facility] Wxdcpnqhmm12[address] [place] [id number]. Tadeo Haja MCH (RBC) [Entitic mass] 28.9 pg Normal 26.7-34.0 [facility] Comment on above: Performed By: #### C BC ####[facility] Tqhlkqdiii29[address] [place] [address]Dr. Tadeo Haja MCHC (RBC) [Mass/Vol] 31.5 g/dL Normal 29.9-35.2 [facility] Comment on above: Performed By: #### C BC ####[facility] Fhlwsfudpt4418 [place] [address]Dr. Tadeo Haja MCV (RBC) [Entitic vol] 91.8 fL Normal 81.0-99.0 [facility] Comment on above: Performed By: #### C BC ####[facility] Wtmfmsenip64[address] [place] [address]Dr. Margotnicole Haja MONO # 0.9 103/ul Critically high 0.3-0.8 [facility] Comment on above: Performed By: #### C BC ####[facility] Sqbuzbqwst[address] [place] [address]Dr. Margotnicole Smyth Monocytes/100 WBC (Bld) 6.9 % Normal 1.7-12.0 [facility] Comment on above: Performed By: #### C BC ####[facility] Aeoddzaqfq[address] [place] [address]Dr. Tadeo Smyth NEUT # 11.6 103/ul Critically high 1.4-6.5 [facility] Comment on above: Performed By: #### C BC ####[facility] Iggmiecdts3971 [place], [place] [address]Qb. Tadeo Smyth Neutrophils/100 WBC (Bld) 85.2 % Critically high 43.0-75.0 [facility] Comment on above: Performed By: #### C BC ####[facility] Andndobbck8359 [place], [place] [address]Mq. Tadeo Smyth Platelet mean volume (Bld) [Entitic vol] 8.9 fL Critically low 9.5-13.5 [facility] Comment on above: Performed By: #### C BC ####[facility] Ekdzigeexn[address]62 [place], [place] [address]Op. Tadeo Smyth PLT 331 103/ul Normal 150-450 [facility] Comment on above: Performed By: #### C BC ####[facility] Hrkshhprsc2106 [place], [place] [address]Cy. Tadeo Smyth RBC 4.01 106/ul Critically low 4.20-5.40 [facility] Comment on above: Performed By: #### C BC ####[facility] Yjgcuprjnl4471 [place], [place] [address]Vf. Tadeo Smyth WBC 13.7 103/ul Critically high 4.0-11.0 [facility] Comment on above: Performed By: #### C BC ####[facility] Lofwsdyfbd7129 [place], [place] [address]Tn. Tadeo Smyth [facility]05 SARS-CoV-2 (COVID-19) RNA CHEN+probe Ql (Unsp spec) Not detected Normal NOT DETECTED [facility] Comment on above: Result [...] for this test is supported by the Assistance Specialist of Health and Human Service's declaration [...] be used). Performed By: #### C VDTBH ####[facility] V[address]rbssk[address] [place] [address]Dr. Tadeo Smyth LIPASEon 02-02-2022 Lipase [Catalytic activity/Vol] 33.0 U/L Critically low 73.0-393.0 [facility] Comment on above: Performed By: #### C VIJI GARCIA LIPA ####[facility] Wjees[address] [place], [place] [address]Dr. Tadeo Smyth MONOon 02-02-2022 Monocytes (Bld) [#/Vol] Negative Normal NEGATIVE [facility] Comment on above: Performed By: #### M JESSICA ####[facility] Zezmgedeah[address] [place], [place] [address]Dr. Tadeo Smyth PROF 14(COMP METB)on 022 Albumin [Mass/Vol] 3.1 g/dL Critically low 3.4-5.0 [facility] Comment on above: Performed By: #### C VIJI GARCIA LIPA ####[facility] Anpwkwnl[address] [place], [place] [address]Dr. Tadeo Smyth Albumin/Globulin [Mass ratio] 0.9 {ratio} Normal [facility] Comment on above: Performed By: #### C JOSE VIJI, LIPA ####[facility] Ckcuwbngld8590 [place] [address]Dr. Tadeo Smyth ALP [Catalytic activity/Vol] 131 U/L Critically high 46-116 [facility] Comment on above: Performed By: #### C JOSE VIJI, LIPA ####[facility] Aekmwwbljo[address] [place] [address]Dr. Tadeo Smyth ALT [Catalytic activity/Vol] 25 U/L Normal 14-59 [facility] Comment on above: Performed By: #### C VIJI GARCIA, LIPA ####[facility] Mgicfxzuep5736 [place] [address]Dr. Tadeo Smyth Anion gap [Moles/Vol] 10.0 mmol/L Normal [facility] Comment on above: Performed By: #### C MP, VIJI, LIPA ####[facility] Xnoqsjylgq1984 [place] [address]Dr. Tadeo Smyth AST [Catalytic activity/Vol] 19 U/L Normal 15-37 [facility] Comment on above: Performed By: #### C MP, VIJI, LIPA ####[facility] Gvsvuycwyk7721 [place] [address]Dr. Tadeo Smyth Bilirubin [Mass/Vol] 0.6 mg/dL Normal 0.2-1.0 [facility] Comment on above: Performed By: #### C MP, VIJI, LIPA ####[facility] Fqs[address]cum[address] [place], [place] [address]Dr. Tadeo Smyth Calcium [Mass/Vol] 8.2 mg/dL Critically low 8.5-10.1 [facility] Comment on above: Performed By: #### C MP, VIJI, LIPA ####[facility] Ipdncewfue[address] [place], [place] [address]Dr. Tadeo Smyth Chloride [Moles/Vol] 106 mmol/L Normal 98-107 [facility] Comment on above: Performed By: #### C MP, VIJI, LIPA ####[facility] Hcducppjgy5237 [place] [address]Dr. Tadeo Smyth CO2 [Moles/Vol] 25.5 mmol/L Normal 21.0-32.0 [facility] Comment on above: Performed By: #### C MP, VIJI, LIPA ####[facility] Nfznrxzoja[address] [place], [place] [address]Dr. Tadeo Smyth Creatinine [Mass/Vol] 0.78 mg/dL Normal 0.55-1.02 [facility] Comment on above: Performed By: #### C MP, VIJI, LIPA ####[facility] Egwojsvtla[address] [place], [place] [address]Dr. Tadeo Smyth EGFR-AF KYRGYZ >60 Normal >=60 [facility] Comment on above: Performed By: #### C VIJI GARCIA LIPA ####[facility] [address]kiobqlec[address] [place] [address]Dr. Tadeo Smyth EGFR-NON AF KYRGYZ >60 Normal >=60 [facility] Comment on above: Performed By: #### C VIJI GARCIA LIPA ####[facility] Yafyqmwhsn3869 [place] [address]Dr. Tadeo Smyth Globulin (S) [Mass/Vol] 3.6 g/dL Normal [facility] Comment on above: Performed By: #### C VIJI GARCIA LIPA ####[facility] Dycewtyiqn87[address] [place] [address]Dr. Tadeo Smyth Glucose [Mass/Vol] 110 mg/dL Critically high 74-106 [facility] Comment on above: Performed By: #### C VIJI GARCIA LIPA ####[facility] Tknonrsylb7065 [place] [address]Dr. Tadeo Smyth Potassium [Moles/Vol] 3.5 mmol/L Normal 3.5-5.1 [facility] Comment on above: Performed By: #### C VIJI GARCIA LIPA ####[facility] [address]abhvutaqv19[address] [place] [address]Dr. Tadeo Smyth Protein [Mass/Vol] 6.7 g/dL Normal 6.4-8.2 [facility] Comment on above: Performed By: #### C VIJI GARCIA, LIPA ####[facility] [address]usiynilut[address] [place] [address]Dr. Tadeo Smyth Sodium [Moles/Vol] 138 mmol/L Normal 136-145 [facility] Comment on above: Performed By: #### C VIJI GARCIA LIPA ####[facility] Lydrbnoytq6864 [place] [address]Dr. Tadeo Smyth Urea nitrogen [Mass/Vol] 11.0 mg/dL Normal 7.0-18.0 [facility] Comment on above: Performed By: #### C JOSE VIJI, LIPA ####[facility] S[address]yl[address] [place], [place] [address]Jb. Tadeo Smyth Urea nitrogen/Creatinine [Mass ratio] 14.1 mg/mg Normal [facility] Comment on above: Performed By: #### C MP, VIJI, LIPA ####[facility] Drfbdbhcgd4044 [place], [place] [address]We. Tadeo Smyth STREPT SCREENon 02-02-2022 STREP SCREEN A Negative Normal NEGATIVE [facility] Comment on above: Performed By: #### G RASTCX, SSCRN ####[facility] Fv[address]shxrvl7[address] [place], [place] [address]As. Tadeo Smyth BASIC METABOLIC PANELon 08-05 Calcium [Mass/Vol] 8.4 mg/dL Low 8.6-10.3 [facility] Comment on above: Order Comment: No: D o not add to previous draw Performed By: #### 3 209, 76634 #### [facility] [address] [place] [address], [place] Chloride [Moles/Vol] 108 mmol/L High 98-107 [facility] Comment on above: Order Comment: No: D o not add to previous draw Performed By: #### 3 108, 24955 #### [facility] [address] [place] [address], [place] CO2 [Moles/Vol] 26 mmol/L Normal 21-31 [facility] Comment on above: Order Comment: No: D o not add to previous draw Performed By: #### 3 591, 16657 #### [facility] [address] [place] [address], [place] Creatinine [Mass/Vol] 0.79 mg/dL Normal 0.60-1.20 [facility] Comment on above: Order Comment: No: D o not add to previous draw Performed By: #### 3 556, 71616 #### [facility] [address] [place] [address], [place] GFR/1.73 sq M predicted among blacks MDRD (S/P/Bld) [Vol rate/Area] mL/min/{1.73_m2} Normal >60 [facility] Comment on above: Order Comment: No: D o not add to previous draw Performed By: #### 3 692, 10401 #### [facility] [address] [place] [address], [place] GFR/1.73 sq M predicted among non-blacks MDRD (S/P/Bld) [Vol rate/Area] mL/min/{1.73_m2} Normal >60 [facility] Comment on above: Order Comment: No: D o not add to previous draw Performed By: #### 3 472, 42269 #### [facility] [address] [place] [address], [place] Glucose [Mass/Vol] 98 mg/dL Normal 70-100 [facility] Comment on above: Order Comment: No: D o not add to previous draw Performed By: #### 3 394, 47413 #### [facility] [address] [place] [address], [place] Potassium [Moles/Vol] 3.5 mmol/L Normal 3.5-5.1 [facility] Comment on above: Order Comment: No: D o not add to previous draw Performed By: #### 3 202, 17411 #### [facility] [address] [place] [address], [place] Sodium [Moles/Vol] 139 mmol/L Normal 136-145 [facility] Comment on above: Order Comment: No: D o not add to previous draw Performed By: #### 3 706, 88101 #### [facility] [address] [place] [address], [place] Urea nitrogen [Mass/Vol] 11 mg/dL Normal 7-25 [facility] Comment on above: Order Comment: No: D o not add to previous draw Performed By: #### 3 548, 05983 #### [facility] [address] [facility]. [address] BLOOD STOOL GUAIACon 019 BLD STOOL GUAIAC Negative Normal NEGATIVE [facility] Comment on above: Order Comment: No: D o not add to previous draw Performed By: #### 3 071, 94970 #### [facility] [address] [facility] [place] [address], [facility] MAGNESIUM BLOODon 08-16-2019 Magnesium [Mass/Vol] 2.0 mg/dL Normal 1.9-2.7 [facility] Comment on above: Order Comment: No: D o not add to previous draw Performed By: #### 3 737, 91463 #### [facility] [address] [facility] *URINE CULTUREon 08-15-2019 Bacteria identified Cx Nom (U) Clinical Report: (D) Specimen/Source: URINE/MIDSTREAM Collected: 08/15/2019 20:40 Status: Final Last Updated: 08/17/2019 08:05 ISO (Final) Escherichia coli >100,000 Cfu/Ml ISOLATE: Escherichia coli RHONDA (mcg/ml) AMP./SULBAC (AMS) 16/8 Intermediate AMPICILLIN (AM) >16 Resistant AZTREONAM (AZM) <=1 Susceptible CEFAZOLIN (CZ) 2 Susceptible CEFTRIAXONE (OFF PREMISE SERVICE REPRESENTATIVE) <=0.5 Susceptible CIPROFLOXACIN (CIP) >2 Resistant ESBL (-/+) (ESBL) Negative GENTAMICIN (GM) <=1 Susceptible NITROFURANTOIN (FT) <=16 Susceptible PIP/TAZO (TZP) 4/4 Susceptible TOBRAMYCIN (TOB) 1 Susceptible TRIMETH/SULFA (SXT) >2/38 Resistant Normal [facility] Comment on above: Performed By: #### 3 635, 96239 #### [facility] [address] [place] [address], [facility] BASIC METABOLIC PANELon 08-05 Calcium [Mass/Vol] 8.8 mg/dL Normal 8.6-10.3 [facility] Comment on above: Order Comment: No: D o not add to previous draw Performed By: #### 0 0071, 57413, 83184 #### [facility] [address] [place] [address], [place] Chloride [Moles/Vol] 107 mmol/L Normal 98-107 [facility] Comment on above: Order Comment: No: D o not add to previous draw Performed By: #### 0 0071, 66330, 80088 #### [facility] [address] [place] [address], [place] CO2 [Moles/Vol] 27 mmol/L Normal 21-31 [facility] Comment on above: Order Comment: No: D o not add to previous draw Performed By: #### 0 0071, 59981, 35475 #### [facility] [address] [place] [address], [place] Creatinine [Mass/Vol] 0.99 mg/dL Normal 0.60-1.20 [facility] Comment on above: Order Comment: No: D o not add to previous draw Performed By: #### 0 0071, 67103, 22015 #### [facility] [address] [place] [address], [place] GFR/1.73 sq M predicted among blacks MDRD (S/P/Bld) [Vol rate/Area] mL/min/{1.73_m2} Normal >60 [facility] Comment on above: Order Comment: No: D o not add to previous draw Performed By: #### 0 0071, 87853, 57579 #### [facility] [address] [place] [address], [place] GFR/1.73 sq M predicted among non-blacks MDRD (S/P/Bld) [Vol rate/Area] 59 ml/min/1.73sq m Abnormal >60 [facility] Comment on above: Order Comment: No: D o not add to previous draw Performed By: #### 0 0071, 94655, 07250 #### [facility] [address] [place] [address], [place] Glucose [Mass/Vol] 100 mg/dL Normal 70-100 [facility] Comment on above: Order Comment: No: D o not add to previous draw Performed By: #### 0 0071, 03977, 31348 #### [facility] [address] [place] [address], [place] Potassium [Moles/Vol] 3.6 mmol/L Normal 3.5-5.1 [facility] Comment on above: Order Comment: No: D o not add to previous draw Performed By: #### 0 0071, 54076, 37218 #### [facility] [address] [place] [address], [place] Sodium [Moles/Vol] 140 mmol/L Normal 136-145 [facility] Comment on above: Order Comment: No: D o not add to previous draw Performed By: #### 0 0071, 30204, 06691 #### [facility] [address] [place] [address], [facility] Urea nitrogen [Mass/Vol] 9 mg/dL Normal 7-25 [facility] Comment on above: Order Comment: No: D o not add to previous draw Performed By: #### 0 0071, 61524, 91412 #### [facility] [address] [place] [address], [facility] LACTATE BLOODon 08-15-2019 Lactate [Moles/Vol] 0.8 mmol/L Normal 0.5-2.2 [facility] Comment on above: Order Comment: Yes: Add to Previous draw if able Performed By: #### 1 0054 #### [facility] [address] [place] [address], [place] LMWH HEPARIN ASSAYon 019 LOW MOLECULAR WEIGHT HEPARIN 0.32 IU/mL Low 0.60-1.20 [facility] Comment on above: Order Comment: (draw [...] and LMWH. Performed By: #### 3 6901, 28649 #### [address] MAGNESIUM BLOODon 08-15-2019 Magnesium [Mass/Vol] 1.7 mg/dL Low 1.9-2.7 [facility] Comment on above: Order Comment: No: D o not add to previous draw Performed By: #### 0 0071, 34928, 55570 #### [facility] [address] [facility] [place] [address], [facility] PHOSPHORUS BLOODon 9 Phosphate [Mass/Vol] 4.1 mg/dL Normal 2.5-5.0 [facility] Comment on above: Order Comment: No: D o not add to previous draw Performed By: #### 0 0071, 05906, 96024 #### [facility] [address] [facility]. [address] UGI WITH SMALL BOWELon 08-15 UGI WITH SMALL BOWEL [facility] [place] Department of Radiology [address] [place] [id number] Patient Name: CONSTANTINO CARDOSO : 1970 Sex: F Age: Race: White Pt. Location: [id number] Patient Status: O Ordered Date: 08/15/2019 10:45:00 [...] ischemia. Electronically signed by:Orestes Condon. Transcribed by: [email or web address], User Resident: Electronically Signed by: ORESTES CONDON @ 08/15/2019 04:13 PM Normal [facility] Comment on above: Order Comment: R/O O bstruction URINALYSIS REFLEXon 08-15-20 Appearance (U) SL CLOUDY Abnormal CLEAR [facility] Comment on above: Order Comment: No: D o not add to previous drawCriteria for reflexing a culture was met. Urine Culture and sensitivitywill be performed. Performed By: #### 3 3891, 99192 #### [facility] [address] [place] [address], [facility] Bilirubin [Mass/Vol] Negative Normal NEGATIVE [facility] Comment on above: Order Comment: No: D o not add to previous drawCriteria for reflexing a culture was met. Urine Culture and sensitivitywill be performed. Performed By: #### 3 1091, 90290 #### [facility] [address] [place] [address], [place] BLOOD SMALL Abnormal NEGATIVE [facility] Comment on above: Order Comment: No: D o not add to previous drawCriteria for reflexing a culture was met. Urine Culture and sensitivitywill be performed. Performed By: #### 3 9241, 66399 #### [facility] [address] [place] [address], [place] Color (U) YELLOW Normal YELLOW [facility] Comment on above: Order Comment: No: D o not add to previous drawCriteria for reflexing a culture was met. Urine Culture and sensitivitywill be performed. Performed By: #### 3 9381, 44707 #### [facility] [address] [place] [address], [place] EPIS OCC Normal FEW,OCC,NON E SEEN [facility] Comment on above: Order Comment: No: D o not add to previous drawCriteria for reflexing a culture was met. Urine Culture and sensitivitywill be performed. Performed By: #### 3 8471, 80400 #### [facility] [address] [place] [address], [place] Glucose [Mass/Vol] Negative Normal NEGATIVE [facility] Comment on above: Order Comment: No: D o not add to previous drawCriteria for reflexing a culture was met. Urine Culture and sensitivitywill be performed. Performed By: #### 3 6901, 06786 #### [facility] [address] [place] [id number], [facility] HYALINE CASTS 6-10 Abnormal NONE SEEN [facility] Comment on above: Order Comment: No: D o not add to previous drawCriteria for reflexing a culture was met. Urine Culture and sensitivitywill be performed. Performed By: #### 3 6901, 36474 #### [facility] [address] [facility] [address], [facility] KETONE Negative Normal NEGATIVE [facility] Comment on above: Order Comment: No: D o not add to previous drawCriteria for reflexing a culture was met. Urine Culture and sensitivitywill be performed. Performed By: #### 3 6901, 15523 #### [facility] [address] [place] [address], [facility] LEUK JONN MODERATE Abnormal NEGATIVE [facility] Comment on above: Order Comment: No: D o not add to previous drawCriteria for reflexing a culture was met. Urine Culture and sensitivitywill be performed. Performed By: #### 3 6901, 54989 #### [facility] [address] [place] [address], [facility] MUCUS THREADS FEW Abnormal NONE SEEN [facility] Comment on above: Order Comment: No: D o not add to previous drawCriteria for reflexing a culture was met. Urine Culture and sensitivitywill be performed. Performed By: #### 3 6901, 56954 #### [facility] [address] [place] [address], [place] Nitrite Ql (U) Negative Normal NEGATIVE [facility] Comment on above: Order Comment: No: D o not add to previous drawCriteria for reflexing a culture was met. Urine Culture and sensitivitywill be performed. Performed By: #### 3 690, [id number] #### [facility] [address] [place] [address], [facility] pH (Bld) 5.0 Normal 5.0-8.0 [facility] Comment on above: Order Comment: No: D o not add to previous drawCriteria for reflexing a culture was met. Urine Culture and sensitivitywill be performed. Performed By: #### 3 690, 73825 #### [facility] [address] [place] [address], [facility] Protein (U) [Mass/Vol] Negative Normal NEGATIVE [facility] Comment on above: Order Comment: No: D o not add to previous drawCriteria for reflexing a culture was met. Urine Culture and sensitivitywill be performed. Performed By: #### 3 690, 68391 #### [facility] [address] [facility] [place] [address], [facility] RBC (U) [#/Vol] 6-10 Abnormal NONE SEEN [facility] Comment on above: Order Comment: No: D o not add to previous drawCriteria for reflexing a culture was met. Urine Culture and sensitivitywill be performed. Performed By: #### 3 690, 46905 #### [facility] [address] [facility]. [address] SPEC GRAV 1.025 High 1.015-1.020 [facility] Comment on above: Order Comment: No: D o not add to previous drawCriteria for reflexing a culture was met. Urine Culture and sensitivitywill be performed. Performed By: #### 3 690, 44659 #### [facility] [address] [facility] [place] [address], [facility] WBC UA 51-100 Abnormal NONE SEEN [facility] Comment on above: Order Comment: No: D o not add to previous drawCriteria for reflexing a culture was met. Urine Culture and sensitivitywill be performed. Performed By: #### 3 690, 38765 #### [facility] [address] [place] [address], [facility] CBC COMPLETE BLOOD COUNTon 10-15-2018 Erythrocyte distribution width (RBC) [Ratio] 12.7 % Normal 11.5-15.0 [facility] Comment on above: Order Comment: No: D o not add to previous draw Performed By: #### 5 0608 #### [facility] [address] [place] [address], [facility] Hematocrit (Bld) [Volume fraction] 31.2 % Low 36.0-45.0 [facility] Comment on above: Order Comment: No: D o not add to previous draw Performed By: #### 5 0608 #### [facility] [address] [place] [address], [facility] Hemoglobin (Bld) [Mass/Vol] 9.8 g/dL Low 12.0-15.0 [facility] Comment on above: Order Comment: No: D o not add to previous draw Performed By: #### 5 0608 #### [facility] [address] [place] [address], [facility] MCH (RBC) [Entitic mass] 29.1 pg Normal 27.0-33.0 [facility] Comment on above: Order Comment: No: D o not add to previous draw Performed By: #### 5 0608 #### [facility] [address] [facility] [place] [address], [facility] MCHC (RBC) [Mass/Vol] 31.4 g/dL Low 32.0-35.0 [facility] Comment on above: Order Comment: No: D o not add to previous draw Performed By: #### 5 0608 #### [facility] [address] [place] [address], [facility] MCV (RBC) [Entitic vol] 92.6 fL Normal 82.0-98.0 [facility] Comment on above: Order Comment: No: D o not add to previous draw Performed By: #### 5 0608 #### [facility] [address] Nucleated RBC/100 WBC (Bld) [Ratio] 0 % Normal 0-0 [facility] Comment on above: Order Comment: No: D o not add to previous draw Performed By: #### 5 0608 #### [facility] [address] [facility] [place] [address], [facility] PLAT CNT 340 10*3/uL Normal 150-400 [facility] Comment on above: Order Comment: No: D o not add to previous draw Performed By: #### 5 0608 #### [facility] [address] RBC (Bld) [#/Vol] 3.37 10*6/uL Low 3.80-5.00 [facility] Comment on above: Order Comment: No: D o not add to previous draw Performed By: #### 5 0608 #### [facility] [address] [facility] [address], [facility] WBC (Bld) [#/Vol] 6.04 10*3/uL Normal 4.00-10.60 [facility] Comment on above: Order Comment: No: D o not add to previous draw Performed By: #### 5 0608 #### [facility] [address] [facility] [address], [facility] PROTHROMBIN TIMEon 9 INR Coag (PPP) [Relative time] 1.09 {INR} Normal 0.91-1.16 [facility] Comment on above: Order Comment: No: [...] 1995;[id number]. Performed By: #### 5 6101 #### [address] PT Coag (PPP) [Time] 14.1 s Normal 12.3-14.8 [facility] Comment on above: Order Comment: No: D o not add to previous draw Result Comment: ALL RESULTS MUST BE INTERPRETED WITH RESPECT TO BLOOD DRAWING ARTIFACT OR DILUTION ERROR OF ANTICOAGULANT AT THE TIME OF SAMPLING. Performed By: #### 5 6101 #### [address] 08-14-2019 [facility] Department of Radiology [address] [place] [id number] Patient Name: CONSTANTINO CARDOSO : 1970 Sex: F Age: Race: White Pt. Location: [id number] Patient Status: O Ordered Date: 08/13/2019 8:30:00 [...] cholecystectomy. Electronically signed by:Orestes Condon. Transcribed by: [email or web address], User Resident: Electronically Signed by: ORESTES CONDON @ 08/14/2019 02:09 PM Normal [facility] Comment on above: Order Comment: R/O S tones BASIC METABOLIC PANELon 12-0 Calcium [Mass/Vol] 9.4 mg/dL Normal 8.6-10.3 [facility] Comment on above: Order Comment: No: D o not add to previous draw Performed By: #### 3 0811 [id number] #### [facility] [address] [place] [address], [place] Chloride [Moles/Vol] 105 mmol/L Normal 98-107 [facility] Comment on above: Order Comment: No: D o not add to previous draw Performed By: #### 3 1421, 84802 #### [facility] [address] [place] [address], [place] CO2 [Moles/Vol] 26 mmol/L Normal 21-31 [facility] Comment on above: Order Comment: No: D o not add to previous draw Performed By: #### 3 137, 19223 #### [facility] [address] [place] [address], [place] Creatinine [Mass/Vol] 1.03 mg/dL Normal 0.60-1.20 [facility] Comment on above: Order Comment: No: D o not add to previous draw Performed By: #### 3 463, 74149 #### [facility] [address] [place] [address], [place] GFR/1.73 sq M predicted among blacks MDRD (S/P/Bld) [Vol rate/Area] mL/min/{1.73_m2} Normal >60 [facility] Comment on above: Order Comment: No: D o not add to previous draw Performed By: #### 3 038, 16347 #### [facility] [address] [place] [address], [place] GFR/1.73 sq M predicted among non-blacks MDRD (S/P/Bld) [Vol rate/Area] 57 ml/min/1.73sq m Abnormal >60 [facility] Comment on above: Order Comment: No: D o not add to previous draw Performed By: #### 3 483, 16823 #### [facility] [address] [place] [address], [place] Glucose [Mass/Vol] 96 mg/dL Normal 70-100 [facility] Comment on above: Order Comment: No: D o not add to previous draw Performed By: #### 3 542, 11749 #### [facility] [address] [place] [address], [place] Potassium [Moles/Vol] 4.1 mmol/L Normal 3.5-5.1 [facility] Comment on above: Order Comment: No: D o not add to previous draw Performed By: #### 3 515, 37276 #### [facility] [address] Sodium [Moles/Vol] 138 mmol/L Normal 136-145 [facility] Comment on above: Order Comment: No: D o not add to previous draw Performed By: #### 3 7671, 04624 #### [facility] [address] [place] [address], [facility] Urea nitrogen [Mass/Vol] 16 mg/dL Normal 7-25 [facility] Comment on above: Order Comment: No: D o not add to previous draw Performed By: #### 3 000, 76659 #### [facility] [address] [facility] [address], [facility] CBC W/DIFFon 08-13-2019 ABS BASOPHILS 0.0 10*3/uL Normal 0.0-0.2 [facility] Comment on above: Order Comment: No: D o not add to previous draw Performed By: #### 5 0103 #### [facility] [address] ABS IMM GRANS 0.0 10*3/uL Normal 0.0-0.2 [facility] Comment on above: Order Comment: No: D o not add to previous draw Performed By: #### 5 0103 #### [facility] [address] [facility] [address] ABS NEUTROPHILS 4.0 10*3/uL Normal 1.6-7.6 [facility] Comment on above: Order Comment: No: D o not add to previous draw Performed By: #### 5 0103 #### [facility] [address] [facility] [place] [address], [facility] Basophils/100 WBC (Bld) 0.5 % Normal 0.0-1.0 [facility] Comment on above: Order Comment: No: D o not add to previous draw Performed By: #### 5 0103 #### [facility] [address] Eosinophils (Bld) [#/Vol] 0.2 10*3/uL Normal 0.0-0.5 [facility] Comment on above: Order Comment: No: D o not add to previous draw Performed By: #### 5 0103 #### [facility] [address] [place] [address], [facility] Eosinophils/100 WBC (Bld) 3.3 % Normal 0.0-6.0 [facility] Comment on above: Order Comment: No: D o not add to previous draw Performed By: #### 5 0103 #### [facility] [address] Erythrocyte distribution width (RBC) [Ratio] 12.7 % Normal 11.5-15.0 [facility] Comment on above: Order Comment: No: D o not add to previous draw Performed By: #### 5 0103 #### [facility] [address] Hematocrit (Bld) [Volume fraction] 33.4 % Low 36.0-45.0 [facility] Comment on above: Order Comment: No: D o not add to previous draw Performed By: #### 5 0103 #### [facility] [address] [facility] [address] Hemoglobin (Bld) [Mass/Vol] 10.5 g/dL Low 12.0-15.0 [facility] Comment on above: Order Comment: No: D o not add to previous draw Performed By: #### 5 0103 #### [facility] [address] [facility] [place] [address], [facility] IMMATURE GRANS 0.2 % Normal 0.0-1.0 [facility] Comment on above: Order Comment: No: D o not add to previous draw Performed By: #### 5 3 #### [facility] [address] [place] [address], [facility] Lymphocytes (Bld) [#/Vol] 1.8 10*3/uL Normal 1.2-4.0 [facility] Comment on above: Order Comment: No: D o not add to previous draw Performed By: #### 5 0103 #### [facility] [address] Lymphocytes/100 WBC (Bld) 28.2 % Normal 20.0-45.0 [facility] Comment on above: Order Comment: No: D o not add to previous draw Performed By: #### 5 0103 #### [facility] [address] [facility] [address] MCH (RBC) [Entitic mass] 28.9 pg Normal 27.0-33.0 [facility] Comment on above: Order Comment: No: D o not add to previous draw Performed By: #### 5 0103 #### [facility] [address] MCHC (RBC) [Mass/Vol] 31.4 g/dL Low 32.0-35.0 [facility] Comment on above: Order Comment: No: D o not add to previous draw Performed By: #### 5 0103 #### [facility] [address] MCV (RBC) [Entitic vol] 92.0 fL Normal 82.0-98.0 [facility] Comment on above: Order Comment: No: D o not add to previous draw Performed By: #### 5 0103 #### [facility] [address] [place] [address], [facility] Monocytes (Bld) [#/Vol] 0.4 10*3/uL Normal 0.1-1.0 [facility] Comment on above: Order Comment: No: D o not add to previous draw Performed By: #### 5 0103 #### [facility] [address] [place] [address], [facility] MONOS 6.2 % Normal 5.0-12.0 [facility] Comment on above: Order Comment: No: D o not add to previous draw Performed By: #### 5 0103 #### [facility] [address] [place] [address], [facility] Neutrophils/100 WBC (Bld) 61.6 % Normal 40.0-72.0 [facility] Comment on above: Order Comment: No: D o not add to previous draw Performed By: #### 5 0103 #### [facility] [address] [place] [id number], [facility] Nucleated RBC/100 WBC (Bld) [Ratio] 0 % Normal 0-0 [facility] Comment on above: Order Comment: No: D o not add to previous draw Performed By: #### 5 0103 #### [facility] [address] [place] [id number], [facility] PLAT CNT 382 10*3/uL Normal 150-400 [facility] Comment on above: Order Comment: No: D o not add to previous draw Performed By: #### 5 0103 #### [facility] [address] [place] [address], [facility] RBC (Bld) [#/Vol] 3.63 10*6/uL Low 3.80-5.00 [facility] Comment on above: Order Comment: No: D o not add to previous draw Performed By: #### 5 0103 #### [facility] [address] [place] [address], [place] WBC (Bld) [#/Vol] 6.45 10*3/uL Normal 4.00-10.60 [facility] Comment on above: Order Comment: No: D o not add to previous draw Performed By: #### 5 0103 #### [facility] [address] [place] [address], [facility] LIPASE BLOODon 08-13-2019 Lipase [Catalytic activity/Vol] 13 Units/L Normal 11-82 [facility] Comment on above: Performed By: #### 3 2542, 57471 #### [facility] [address] Vital Signs Date Time Vital Sign Value Performing Clinician Facility 03-18-2025 13:05-0400 Body height 170.2 cm [facility] 3 [facility] 03-18-2025 13:05-0400 Body mass index (BMI) [Ratio] 29.44 kg/m2 [facility] 3 [facility] 03-18-2025 13:05-0400 Body weight 85.28 kg [facility] 03-12-2025 23:00-0400 Diastolic blood pressure 74 mm[Hg] Kailey Franciscofle CASING [employer]MER Work Phone: [facility] 03-12-2025 23:00-0400 Heart rate 57 /min Kailey Franciscofle [employer]ING [employer]MER Work Phone: [facility] 03-12-2025 23:00-0400 Respiratory rate 13 /min Kailey Franciscofle [employer]ING [employer]MER Work Phone: [facility] 03-12-2025 23:00-0400 SaO2% (BldA) [Mass fraction] 96 % Kailey Franciscofle [employer]ING [employer]MER Work Phone: [facility] 03-12-2025 23:00-0400 Systolic blood pressure 142 mm[Hg] Kailey Saffle [employer]ING [employer] Work Phone: [facility] 03-12-2025 20:08-0400 Body height 170.18 cm Kailey Franciscofle [employer]ING [employer]MER Work Phone: [facility] 03-12-2025 20:08-0400 Body temperature 97.9 [degF] Kailey Franciscofle [employer]ING [employer]MER Work Phone: [facility] 03-12-2025 20:08-0400 Body weight 85.45 kg Kailey Wille [employer]ING [employer]MER Work Phone: [facility] 01-07-2025 14:15-0400 Body height 170.2 cm Nikki Ayoub PA Work Phone: [facility] 01-07-2025 14:15-0400 Body mass index (BMI) [Ratio] 29.44 kg/m2 Nikki Ayoub PA Work Phone: [facility] 01-07-2025 14:15-0400 Body weight 85.28 kg Nikki Ayoub PA Work Phone: [facility] 01-07-2025 14:15-0400 Diastolic blood pressure 92 mm[Hg] Nikki Ayoub PA Work Phone: [facility] 01-07-2025 14:15-0400 Heart rate 52 /min Nikki Ayoub PA Work Phone: [facility] 01-07-2025 14:15-0400 Respiratory rate 16 /min Nikki Ayoub PA Work Phone: [facility] 01-07-2025 14:15-0400 SaO2% (BldA) [Mass fraction] 98 % Nikki Ayoub PA Work Phone: [facility] 01-07-2025 14:15-0400 Systolic blood pressure 142 mm[Hg] Nikki Ayoub PA Work Phone: [facility] 11-26-2024 10:51-0400 Body height 170.2 cm Nikki Ayoub PA Work Phone: [facility] 11-26-2024 10:51-0400 Body mass index (BMI) [Ratio] 30.23 kg/m2 Nikki Ayoub PA Work Phone: [facility] 11-26-2024 10:51-0400 Body weight 87.54 kg Nikki Ayoub PA Work Phone: [facility] 11-26-2024 10:51-0400 Diastolic blood pressure 84 mm[Hg] Nikki Ayoub PA Work Phone: [facility] 11-26-2024 10:51-0400 Heart rate 77 /min Nikki Ayoub PA Work Phone: [facility] 11-26-2024 10:51-0400 Respiratory rate 16 /min Nikki HAQ Work Phone: [facility] 11-26-2024 10:51-0400 SaO2% (BldA) [Mass fraction] 99 % Nikki HAQ Work Phone: [facility] 11-26-2024 10:51-0400 Systolic blood pressure 124 mm[Hg] Nikki HAQ Work Phone: [facility] 10-20-2024 18:00-0500 Hourly Rounding Eliezer Paster [facility] 10-20-2024 18:00-0500 Promise to Return Eliezer Paster [facility] 10-20-2024 17:00-0500 Hourly Rounding Eliezer Paster [facility] 10-20-2024 17:00-0500 Promise to Return Eliezer Paster [facility] 10-20-2024 16:00-0500 Hourly Rounding Eliezer Paster [facility] 10-20-2024 16:00-0500 Promise to Return Eliezer Paster [facility] 10-20-2024 13:48-0500 SaO2% (BldA) [Mass fraction] 96 % Eliezer Paster [facility] 10-20-2024 11:46-0500 Heart rate 54 /min Eliezer Paster [facility] 10-20-2024 11:46-0500 SaO2% (BldA) [Mass fraction] 96 % Eliezer Paster [facility] 10-20-2024 11:44-0500 Diastolic blood pressure 78 mm[Hg] Eliezer Paster [facility] 10-20-2024 11:44-0500 Mean blood pressure 95 mm[Hg] Eliezer Paster [facility] 10-20-2024 11:44-0500 Systolic blood pressure 127 mm[Hg] Eliezer Paster [facility] 10-20-2024 11:44-0500 Body temperature 97.7 [degF] Eliezer Paster [facility] 10-20-2024 10:24-0500 Diastolic blood pressure 80 mm[Hg] Eliezer Paster [facility] 10-20-2024 10:24-0500 Heart rate 77 /min Eliezer Paster [facility] 10-20-2024 10:24-0500 Systolic blood pressure 129 mm[Hg] Eliezer Paster [facility] 10-20-2024 07:55-0500 Heart rate 49 /min Eliezer Paster [facility] 10-20-2024 07:55-0500 SaO2% (BldA) [Mass fraction] 97 % Eliezer Paster [facility] 10-20-2024 07:53-0500 Mean blood pressure 97 mm[Hg] Eliezer Paster [facility] 10-20-2024 07:53-0500 Body temperature 97.52 [degF] Eliezer Paster [facility] 10-20-2024 04:00-0500 gluc 93 mg/dL Eliezer Paster [facility] 10-20-2024 03:57-0500 Heart rate 54 /min Eliezer Paster [facility] 10-20-2024 03:56-0500 Mean blood pressure 80 mm[Hg] Eliezer Paster [facility] 10-20-2024 03:56-0500 Body temperature 98.06 [degF] Eliezer Paster [facility] 10-20-2024 03:12-0500 Heart rate 49 /min Eliezer Paster [facility] 10-20-2024 03:12-0500 Mean blood pressure 98 mm[Hg] Eliezer Paster [facility] 10-20-2024 03:12-0500 Respiratory rate 16 /min Eliezer Paster [facility] 10-20-2024 01:00-0500 Heart rate 58 /min Eliezer Paster [facility] 10-20-2024 01:00-0500 Mean blood pressure 81 mm[Hg] Eliezer Paster [facility] 10-20-2024 00:00-0500 gluc 93 mg/dL Eliezer Paster [facility] 10-19-2024 23:00-0500 Heart rate 61 /min Eliezer Paster [facility] 10-19-2024 23:00-0500 Mean blood pressure 79 mm[Hg] Eliezer Paster [facility] 10-19-2024 20:30-0500 Body temperature 98.06 [degF] Eliezer Paster [facility] Comment on above: Result Comment: Patient arrives to room 212. Oriented to room. 10-19-2024 20:30-0500 Respiratory rate 16 /min Eliezer Paster [facility] 10-19-2024 19:00-0500 Respiratory rate 22 /min Eliezer Paster [facility] 10-19-2024 17:21-0500 Body temperature 98.42 [degF] Eliezer Paster [facility] 08-30-2024 07:25-0500 Body temperature 97.9 [degF] Pete Otto MD Work Phone: [facility] [employer] 08-30-2024 07:25-0500 Diastolic blood pressure 89 mm[Hg] Pete Otto MD Work Phone: [facility] [employer] 08-30-2024 07:25-0500 Heart rate 61 /min [facility] 08-30-2024 07:25-0500 Respiratory rate 16 /min Pete Otto MD Work Phone: [facility] [employer] 08-30-2024 07:25-0500 SaO2% (BldA) [Mass fraction] 96 % Pete Otto MD Work Phone: [facility] [employer] 08-30-2024 07:25-0500 Systolic blood pressure 144 mm[Hg] Pete Otto MD [facility] 08-28-2024 16:30-0500 Body height 170.2 cm Pete Otto MD Work Phone: [facility] [employer] 08-28-2024 16:30-0500 Body mass index (BMI) [Ratio] 28.82 kg/m2 Pete Otto MD Work Phone: [facility] [employer] 08-28-2024 16:30-0500 Body weight 83.5 kg Pete Otto MD Work Phone: [facility] [employer] 08-17-2024 13:40-0500 Body temperature 97.7 [degF] Justin Lucero MD Work Phone: [facility] [employer] 08-17-2024 13:40-0500 Diastolic blood pressure 89 mm[Hg] Justin Lucero MD Work Phone: [facility] [employer] 08-17-2024 13:40-0500 Heart rate 68 /min Justin Lucero MD Work Phone: [facility] [employer] 08-17-2024 13:40-0500 Respiratory rate 12 /min Justin Lucero MD [facility] 08-17-2024 13:40-0500 SaO2% (BldA) [Mass fraction] 99 % Justin Lucero MD [facility] 08-17-2024 13:40-0500 Systolic blood pressure 159 mm[Hg] Justin [facility]ero MD [facility] 11:29-0500 Body height 170.2 cm Justin Lucero MD [facility] 08-17-2024 11:29-0500 Body mass index (BMI) [Ratio] 29.75 kg/m2 Justin Lucero MD [facility] 08-17-2024 11:29-0500 Body weight 86.18 kg Justin Lucero MD [facility] 07-13-2024 11:29-0500 Body height 170.2 cm Kulwant Hodge MD Work Phone: [facility] 07-13-2024 11:29-0500 Body mass index (BMI) [Ratio] 29.44 kg/m2 Kulwant Hodge MD Work Phone: [facility] 07-13-2024 11:29-0500 Body weight 85.28 kg Kulwant Hodge MD Work Phone: [facility] 07-13-2024 11:29-0500 Diastolic blood pressure 70 mm[Hg] Kulwant Hodge MD Work Phone: [facility] 07-13-2024 11:29-0500 Heart rate 68 /min Kulwant Hodge MD Work Phone: [facility] Comment on above: 02 SAT 96% 07-13-2024 11:29-0500 Respiratory rate 16 /min Kulwant Hodge MD Work Phone: [facility] 07-13-2024 11:29-0500 Systolic blood pressure 116 mm[Hg] Kulwant Hodge MD Work Phone: [facility] 06-20-2024 11:08-0400 Body height 170.2 cm Kulwant Hodge MD Work Phone: [facility] 06-20-2024 11:08-0400 Body mass index (BMI) [Ratio] 28.98 kg/m2 Kulwant Hodge MD Work Phone: [facility] 06-20-2024 11:08-0400 Body weight 83.92 kg Kulwant Hodge MD Work Phone: [facility] 06-20-2024 11:08-0400 Diastolic blood pressure 92 mm[Hg] Kulwant Hodge MD Work Phone: [facility] 06-20-2024 11:08-0400 Heart rate 62 /min Kulwant Hodge MD Work Phone: [facility] 06-20-2024 11:08-0400 Respiratory rate 16 /min Kulwant Hodge MD Work Phone: [facility] 06-20-2024 11:08-0400 Systolic blood pressure 140 mm[Hg] Kulwant Hodge MD Work Phone: [facility] 05-11-2024 10:50-0400 Diastolic blood pressure 80 mm[Hg] [employer] Judi Youssef Work Phone: [facility] 05-11-2024 10:50-0400 Heart rate 67 /min [employer]Paula Youssef Work Phone: [facility] 05-11-2024 10:50-0400 Respiratory rate 16 /min [employer]ula Youssef Work Phone: [facility] 05-11-2024 10:50-0400 SaO2% (BldA) [Mass fraction] 100 % [employer] Judi Youssef Work Phone: [facility] 05-11-2024 10:50-0400 Systolic blood pressure 130 mm[Hg] [employer] Judi Youssef Work Phone: [facility] 05-11-2024 08:23-0400 Body height 170.18 cm [employer] Judi Youssef Work Phone: [facility] 05-11-2024 08:23-0400 Body weight 81.64 kg [employer] Judi Youssef Work Phone: [facility] 04-26-2024 08:27-0400 Body height 170.18 cm [facility] 04-26-2024 08:27-0400 Body mass index (BMI) [Ratio] 28.5 kg/m2 [facility] 04-26-2024 08:27-0400 Body weight 82.55 kg [facility] 04-26-2024 08:27-0400 Diastolic blood pressure 82 mm[Hg] [facility] 04-26-2024 08:27-0400 Heart rate 59 /min [facility] 04-26-2024 08:27-0400 Systolic blood pressure 132 mm[Hg] [facility] 02-16-2024 09:03-0400 Blood Pressure Location Yolanda Orzech [facility] 02-16-2024 09:03-0400 Body temperature 97.7 [degF] Yolanda Orzech [facility] 02-16-2024 09:03-0400 Diastolic blood pressure 84 mm[Hg] Yolanda Orzech [facility] 02-16-2024 09:03-0400 Heart rate 78 /min Yolanda Orzech [facility] 02-16-2024 09:03-0400 Systolic blood pressure 128 mm[Hg] Yolanda Orzech [facility] 07-22-2023 13:19-0500 Body height 170.[address] Work Phone: [facility] 07-22-2023 13:19-0500 Body weight 83.[address] Work Phone: [facility] 07-14-2023 11:40-0500 Diastolic blood pressure 95 mm[Hg] Marques Bradley MD Work Phone: [facility] 07-14-2023 11:40-0500 Heart rate 56 /min Marques Bradley MD Work Phone: [facility] 07-14-2023 11:40-0500 Respiratory rate 16 /min Marques Bradley MD Work Phone: [facility] 07-14-2023 11:40-0500 SaO2% (BldA) [Mass fraction] 97 % Marques Bradley MD Work Phone: [facility] 07-14-2023 11:40-0500 Systolic blood pressure 158 mm[Hg] Marques Bradley MD Work Phone: [facility] 07-14-2023 11:10-0500 Body temperature 97.2 [degF] Marques Bradley MD Work Phone: [facility] 07-14-2023 08:34-0500 Body height 170.2 cm Marques Bradley MD Work Phone: [facility] 07-14-2023 08:34-0500 Body weight 88 kg Marques Bradley MD Work Phone: [facility] 04-21-2023 09:30-0400 Body height 170.18 cm Renny Omalley Other [employer] Other 04-21-2023 09:30-0400 Body mass index (BMI) [Ratio] 31.21 kg/m2 Renny Omalley Other [employer] Other 04-21-2023 09:30-0400 Body weight 90.4 kg Renny Omalley Other [employer] Other 04-21-2023 09:30-0400 Diastolic blood pressure 78 mm[Hg] Renny Omalley Other [employer] [facility] [employer] Other 04-21-2023 09:30-0400 Systolic blood pressure 130 mm[Hg] Renny Omalley Other [facility] [employer] Other 03-23-2023 07:33-0400 Diastolic blood pressure 80 mm[Hg] [employer] Judi Ugaldemer Work Phone: [facility] 03-23-2023 07:33-0400 Heart rate 81 /min [employer] Judimatty Ugaldemer Work Phone: [facility] 03-23-2023 07:33-0400 Respiratory rate 14 /min [employer] Judi Regina Work Phone: [facility] 03-23-2023 07:33-0400 SaO2% (BldA) [Mass fraction] 95 % [employer] Judi Regina Work Phone: [facility] 03-23-2023 07:33-0400 Systolic blood pressure 171 mm[Hg] [employer] Judi Regina Work Phone: [facility] 03-23-2023 06:20-0400 Body height 170.18 cm [employer] Judi Regina Work Phone: [facility] 03-23-2023 06:20-0400 Body temperature 97.4 [degF] [employer] Judi Regina Work Phone: [facility] 03-23-2023 06:20-0400 Body weight 90 kg [employer] Judi Regina Work Phone: [facility] 02-19-2023 00:53-0400 Body temperature 96.98 [degF] Khrisinn Dokken [facility] 02-19-2023 00:53-0400 Diastolic blood pressure 99 mm[Hg] rFanklinylinn Dokken [facility] 02-19-2023 00:53-0400 Heart rate 75 /min Franklinylinn Dokken [facility] 02-19-2023 00:53-0400 Respiratory rate 16 /min Franklinylinn Dokken [facility] 02-19-2023 00:53-0400 SaO2% (BldA) [Mass fraction] 98 % Franklinylinn Dokken [facility] 02-19-2023 00:53-0400 Systolic blood pressure 153 mm[Hg] Franklinylinn Dokken [facility] 02-15-2023 10:33-0400 Diastolic blood pressure 89 mm[Hg] [employer] Judi Regina Work Phone: [facility] 02-15-2023 10:33-0400 SaO2% (BldA) [Mass fraction] 100 % [employer] Judi Regina Work Phone: [facility] 02-15-2023 10:33-0400 Systolic blood pressure 149 mm[Hg] [employer] Judi Regina Work Phone: [facility] 02-15-2023 10:00-0400 Heart rate 83 /min [employer] Judi Regina Work Phone: [facility] 02-15-2023 10:00-0400 Respiratory rate 16 /min [employer] Judi Regina Work Phone: [facility] 02-15-2023 08:06-0400 Body height 170.18 cm [employer] Judi Regina Work Phone: [facility] 02-15-2023 08:06-0400 Body temperature 97.6 [degF] [employer] Judi Regina Work Phone: [facility] 02-15-2023 08:06-0400 Body weight 89.2 kg [employer] Judi Regina Work Phone: [facility] 10-26-2022 08:03-0500 Diastolic blood pressure 87 mm[Hg] [employer] Judi Regina Work Phone: [facility] 10-26-2022 08:03-0500 Heart rate 70 /min [employer] Judi Regina Work Phone: [facility] 10-26-2022 08:03-0500 Respiratory rate 18 /min [employer] Judi Regina Work Phone: [facility] 10-26-2022 08:03-0500 SaO2% (BldA) [Mass fraction] 98 % [employer] Judi Regina Work Phone: [facility] 10-26-2022 08:03-0500 Systolic blood pressure 161 mm[Hg] [employer] Judi Regina Work Phone: [facility] 10-26-2022 06:17-0500 Body height 170.18 cm [employer] Judi Regina Work Phone: [facility] 10-26-2022 06:17-0500 Body temperature 97.2 [degF] [employer] Judi Regina Work Phone: [facility] 10-26-2022 06:17-0500 Body weight 88.9 kg [employer] Judi Regina Work Phone: [facility] 07-22-2022 14:34-0500 Diastolic blood pressure 83 mm[Hg] Ospina SALAM [facility] 07-22-2022 14:34-0500 Mean blood pressure 101 mm[Hg] [facility] 07-22-[facility]22 14:34-0500 Systolic blood pressure 136 mm[Hg] Ospina SALAM [facility] 07-22-2022 14:30-0500 Blood Pressure Location Ospina SALAM [facility] 07-22-2022 14:30-0500 Diastolic blood pressure 89 mm[Hg] Ospina SALAM [facility] 07-22-2022 14:30-0500 Heart rate 62 /min Ospina SALAM [facility] 07-22-2022 14:30-0500 Respiratory rate 16 /min Ospina SALAM [facility] 07-22-2022 14:30-0500 SaO2% (BldA) [Mass fraction] 98 % Ospina SALAM [facility] 07-22-2022 14:30-0500 Systolic blood pressure 141 mm[Hg] Ospina SALAM [facility] 04-14-2022 14:50-0400 Blood Pressure Location Moniquejuan luis ReddyJimmy [facility] 04-14-2022 14:50-0400 Body temperature 97.16 [degF] Monique Jimmy [facility] 04-14-2022 14:50-0400 Diastolic blood pressure 86 mm[Hg] Monique Jimmy [facility] 04-14-2022 14:50-0400 Heart rate 72 /min Moniquejuan luis ReddyJimmy [facility] 04-14-2022 14:50-0400 SaO2% (BldA) [Mass fraction] 97 % Monique Marquez [facility] 04-14-2022 14:50-0400 Systolic blood pressure 131 mm[Hg] Monique Marquez [facility] 01-28-2022 13:36-0400 Blood Pressure Location Monique Marquez [facility] 01-28-2022 13:36-0400 Body temperature 97.52 [degF] Monique Marquez [facility] 01-28-2022 13:36-0400 Diastolic blood pressure 85 mm[Hg] Monique Marquez [facility] 01-28-2022 13:36-0400 Heart rate 73 /min Monique Marquez [facility] 01-28-2022 13:36-0400 SaO2% (BldA) [Mass fraction] 96 % Monique Marquez [facility] 01-28-2022 13:36-0400 Systolic blood pressure 122 mm[Hg] Monique Castañedaz [facility] 01-11-2022 10:15-0400 Blood Pressure Location Anai FORBES [facility] 01-11-2022 10:15-0400 Diastolic blood pressure 106 mm[Hg] Ospina SALAM [facility] 01-11-2022 10:15-0400 Heart rate 70 /min Ospina SALAM [facility] 01-11-2022 10:15-0400 Respiratory rate 28 /min Ospina SALAM [facility] 01-11-2022 10:15-0400 SaO2% (BldA) [Mass fraction] 99 % Ospina SALAM [facility] 01-11-2022 10:15-0400 Systolic blood pressure 137 mm[Hg] Ospina SALAM [facility] 01-11-2022 10:05-0400 Blood Pressure Location Ospina SALAM [facility] 01-11-2022 10:05-0400 Diastolic blood pressure 74 mm[Hg] Ospina SALAM [facility] 01-11-2022 10:05-0400 Heart rate 67 /min Ospina SALAM [facility] 01-11-2022 10:05-0400 Respiratory rate 14 /min Ospina SALAM [facility] 01-11-2022 10:05-0400 SaO2% (BldA) [Mass fraction] 97 % Ospina SALAM [facility] 01-11-2022 10:05-0400 Systolic blood pressure 128 mm[Hg] Ospina SALAM [facility] 01-11-2022 10:00-0400 Blood Pressure Location Ospina SALAM [facility] 01-11-2022 10:00-0400 Diastolic blood pressure 79 mm[Hg] Ospina SALAM [facility] 01-11-2022 10:00-0400 Heart rate 66 /min Ospina SALAM [facility] 01-11-2022 10:00-0400 Respiratory rate 16 /min Ospina SALAM [facility] 01-11-2022 10:00-0400 SaO2% (BldA) [Mass fraction] 98 % Ospina SALAM [facility] 01-11-2022 10:00-0400 Systolic blood pressure 134 mm[Hg] Ospina SALAM [facility] 01-11-2022 09:50-0400 Body temperature 97.52 [degF] Ospina SALAM [facility] 01-11-2022 09:45-0400 Respiratory rate 15 /min Ospina SALAM [facility] 01-11-2022 09:18-0400 Body temperature 97.34 [degF] Ospina SALAM [facility] 01-11-2022 09:18-0400 Respiratory rate 20 /min Ospina SALAM [facility] Encounters Encounter Date Encounter Type Care Provider Facility Start: 10-14-2025 ambulatory Flavio JUAREZ Facili ty:[facility] Start: 06-11-2025 End: 06-11-2025 ambulatory Flavio JUAREZ Facility:[facility] Start: 06-05-2025 End: 06-05-2025 ambulatory Ricks Talal Sarmini Facility:[facility] Start: 06-05-2025 End: 06-05-2025 Patient encounter procedure Ricks Talal Sarmini [facility] Start: 04-09-2025 End: 04-09-2025 ambulatory Ricks Talal Sarmini Facility:[facility] Start: 04-08-2025 End: 04-08-2025 ambulatory JUDI YOUSSEF Facility:[facility] Start: 04-08-2025 End: 04-08-2025 Patient encounter procedure Flavio JUAREZ [facility] Start: 04-02-2025 End: 04-02-2025 ambulatory Ricks Talal Sarmini Facility:[facility] Start: 03-27-2025 End: 03-27-2025 ambulatory Ricks Talal Sarmini Facility:[facility] Start: 03-27-2025 End: 03-27-2025 Patient encounter procedure Ricks Talal Sarmini [facility] Start: 03-26-2025 ambulatory Ricks Sagemini Facili ty:[facility] Start: 03-18-2025 End: 03-22-2025 ambulatory JUDI YOUSSEF [facility] Start: 03-18-2025 End: 03-22-2025 Subsequent hospital visit by physician Anival Pat Rm 3 ANIVAL Pre-Admit Testing Start: 03-12-2025 End: 03-12-2025 Emergency department patient visit Kailey Mosley ANDREEA Work Phone: -Emergency Room Work Phone: Start: 02-28-2025 End: 02-28-2025 ambulatory [facility] Start: 02-16-2025 End: 02-16-2025 Emergency department patient visit Prosper Bergman [facility] Start: 01-07-2025 End: 01-07-2025 Office outpatient visit 25 minutes Nikki HAQ Work Phone: [facility] Comment on above: Seizure (CMS/HCC) (P rimary Dx); History of obstructive sleep apnea; Migraine without aura and without status migrainosus, not intractable (CMS/HCC); Dizziness Start: 01-07-2025 End: 01-07-2025 ambulatory NIKKI AYOUB Not Available Start: 01-07-2025 End: 01-07-2025 Bamboo flowsheet Nikki HAQ Work Phone: [facility] Start: 01-07-2025 End: 01-07-2025 Bamboo flowsheet Nikki HAQ Work Phone: [facility] Start: 12-28-2024 End: 12-28-2024 ambulatory [facility] Start: 12-18-2024 End: 12-18-2024 ambulatory Nicanor Perez [facility] Work Phone: Start: 12-18-2024 End: 12-18-2024 Departed Referred Nicanor Perez MD Work Phone: [facility] Start: 11-26-2024 End: 11-26-2024 Office outpatient visit 25 minutes Nikki HAQ Work Phone: [facility] Comment on above: Seizure (CMS/HCC) (P rimary Dx); History of obstructive sleep apnea; Migraine without aura and without status migrainosus, not intractable (CMS/HCC) Start: 11-26-2024 End: 11-26-2024 ambulatory NIKKI AYOUB Not Available Start: 10-19-2024 End: 10-20-2024 ambulatory Eliezer Lorenzo Facility:[facility] Start: 10-19-2024 Emergency department patient visit [facility] Facility:[facility] Start: 10-19-2024 End: 10-20-2024 Observation Eliezer Lorenzo [facility] Start: 09-17-2024 End: 09-17-2024 ambulatory [facility] Start: 08-28-2024 End: 08-30-2024 Evaluation and management of inpatient Ptee Otto MD Work Phone: [facility] Surg Comment on above: Ileus (HCC) (Primary Dx); Generalized abdominal pain; Hypokalemia Start: 08-17-2024 End: 08-17-2024 ambulatory JUSTIN LUCERO [facility] Start: 08-17-2024 End: 08-17-2024 Subsequent hospital visit by physician Justin Lucero MD Work Phone: [facility] Comment on above: Other dysphagia (Apple alfonzo Dx) Start: 07-13-2024 End: 07-13-2024 Bamboo flowsheet Kulwant Hodge MD Work Phone: [facility] Start: 07-13-2024 End: 07-13-2024 Bamboo flowsnidhi Hodge MD Work Phone: [facility] Start: 07-13-2024 End: 07-13-2024 Office outpatient visit 25 minutes Kulwant Hodge MD Work Phone: [facility] Comment on above: Hypoglycemia Start: 07-13-2024 End: 07-13-2024 ambulatory KULWANT HODGE Not Available Start: 06-20-2024 End: 06-20-2024 Bamboo flowsnidhi Hodge MD Work Phone: [facility] Start: 06-20-2024 End: 06-20-2024 Bamtyler flowsnidhi Hodge MD Work Phone: [facility] Start: 06-20-2024 End: 06-20-2024 ambulatory KULWANT HODGE Not Available Start: 06-20-2024 End: 06-20-2024 Office outpatient new 45 minutes Kulwant Hodge MD Work Phone: [facility] Comment on above: Hypoglycemia (Primar y Dx); Encounter for dietary consultation Start: 06-19-2024 End: 06-19-2024 Patient encounter procedure [employer]Paula Youssef Work Phone: [facility] Work Phone: Start: 06-19-2024 End: 06-19-2024 ambulatory [employer] Judi Joan Regina Work Phone: [facility] Work Phone: Start: 06-07-2024 End: 06-07-2024 ambulatory Yolanda X Dasha Facility: [facility] Start: 06-07-2024 End: 06-07-2024 Patient encounter procedure Yolanda X Orapryl [facility] Start: 05-14-2024 End: 05-14-2024 ambulatory [facility] Start: 05-11-2024 Non-patient / Non-visit [employer] P christi Regina Work Phone: [facility] Phys[facility] Work Phone: Start: 05-11-2024 End: 05-11-2024 Admission to same day surgery center [employer] Judi Regina Work Phone: [facility] Work Phone: Start: 05-11-2024 End: 05-11-2024 ambulatory [employer] Judi Joan Regina Work Phone: [facility] Work Phone: Start: 04-26-2024 End: 04-26-2024 ambulatory [facility] Work Phone: Start: 04-26-2024 End: 04-26-2024 Patient encounter procedure [facility] Work Phone: Start: 04-13-2024 Non-patient / Non-visit [employer] P christi Regina Work Phone: [facility] Work Phone: Start: 03-19-2024 End: 03-19-2024 ambulatory [facility] Start: 02-16-2024 End: 02-16-2024 ambulatory Yolanda Lou Facility:[facility] Start: 02-16-2024 End: 02-16-2024 Lab Drop off Yolanda Lou [facility] Start: 02-16-2024 End: 02-16-2024 Patient encounter procedure Yolanda Lou [facility] Start: 12-01-2023 ambulatory [facility] Start: 08-25-2023 End: 08-25-2023 ambulatory [facility] Facility:[facility] Start: 07-29-2023 Orders Only Evelyn Black RN Gen eral Surgery Comment on above: Gastroparesis (Prima ry Dx) Start: 07-22-2023 End: 07-22-2023 ambulatory MARQUES BRADLEY Facility:[facility] Start: 07-22-2023 Telephone encounter Evelyn Black RN General Surgery Start: 07-22-2023 End: 07-22-2023 Nutrition therapy Americo Montalvo RD Work Phone: General Surgery Comment on above: Gastroparesis (Prima ry Dx); Malnutrition of moderate degree (HCC); Gastro-esophageal reflux disease without esophagitis; Overweight (BMI 25.0-29.9); Dietary counseling and surveillance Start: 07-22-2023 End: 07-22-2023 Telemedicine consultation with patient Americo Montalvo RD Work Phone: [facility] Start: 07-14-2023 End: 07-14-2023 ambulatory MARQUES BRADLEY Facility:[facility] Start: 07-14-2023 End: 07-14-2023 Subsequent hospital visit by physician Marques Bradley MD Work Phone: Gastroenterology Comment on above: Dysphagia, unspecifi ed type [R13.10] Start: 07-13-2023 End: 07-13-2023 ambulatory MARQUES BRADLEY Facility:[facility] Start: 05-27-2023 Telephone encounter Evelyn Black RN General Surgery Comment on above: Results Start: 05-26-2023 End: 05-26-2023 ambulatory MARQUES Patel JAN Facility:[facility] Start: 05-25-2023 End: 05-25-2023 [facility] Start: 05-25-2023 End: 05-25-2023 Nursing evaluation of patient and report Nurse [facility] 2 Work Phone: Gastroenterology Comment on above: Nausea Start: 05-16-2023 Orders Only Evelyn Black RN Gen eral Surgery Comment on above: Nausea (Primary Dx); Dysphagia, unspecified type Start: 05-06-2023 End: 05-07-2023 ambulatory MARQUES Gabriel JNA Facility:[facility] Start: 05-02-2023 Telephone encounter Evelyn Black RN General Surgery Start: 04-26-2023 Telephone encounter Evelyn Black RN General Surgery Start: 04-21-2023 End: 04-21-2023 ambulatory Renny Omalley Other [employer] Other Start: 04-21-2023 Office outpatient vi sit 15 minutes Renny Omalley [facility] Start: 04-18-2023 Telephone encounter Evelyn Black RN General Surgery Comment on above: [employer] - [employer]r Start: 04-07-2023 Telephone encounter Guillermo Martinez DO Work Phone: Gastroenterology Comment on above: Appointment Start: 04-05-2023 End: 04-05-2023 ambulatory Imad Asaad Other [employer] Other Start: 04-05-2023 Telephone encounter Imad Asaad [facility] Start: 03-29-2023 ambulatory Facility:[facility] Start: 03-26-2023 ambulatory Facility:[id number] Start: 03-26-2023 ambulatory Facility:[id number] Start: 03-24-2023 End: 03-24-2023 ambulatory Imad Asaad Other [employer] Other Start: 03-24-2023 Telephone encounter Imad Asaad [facility] Start: 03-23-2023 End: 03-23-2023 Emergency department patient visit [employer] Judi Regina Work Phone: [facility] Work Phone: Start: 03-22-2023 End: 03-22-2023 ambulatory Imad Asaad Other [employer] Other Start: 03-22-2023 Telephone encounter Imad Asaad [facility] Start: 03-09-2023 End: 03-09-2023 ambulatory Imad Asaad Other [employer] Other Start: 03-09-2023 Telephone encounter Imad Asaad [facility] Start: 03-01-2023 End: 03-01-2023 ambulatory Imad Asaad Other [employer] Other Start: 03-01-2023 Telephone encounter Imad Asaad [facility] Start: 02-19-2023 End: 02-19-2023 Emergency department patient visit [place] Pooja [facility] Start: 02-15-2023 End: 02-15-2023 Emergency department patient visit [employer] Judi Regina Work Phone: [facility] Work Phone: Start: 11-30-2022 End: 12-01-2022 ambulatory JUDI YOUSSEF Facility:H1 Start: 11-27-2022 End: 11-28-2022 ambulatory JUDIMATTY YOUSSEF Facility:H1 Start: 11-26-2022 End: 11-26-2022 ambulatory Imad Asaad Other [employer] Other Start: 11-26-2022 Telephone encounter Imad Asaad [facility] Start: 11-04-2022 End: 11-04-2022 Admission to same day surgery center [employer] Judimatty Youssef Work Phone: [facility] [place] Work Phone: Start: 11-04-2022 End: 11-04-2022 ambulatory [employer] Judi Youssef Work Phone: [facility] Work Phone: Start: 11-01-2022 End: 11-02-2022 ambulatory JUDI YOUSSEF Facility:H1 Start: 10-26-2022 End: 10-26-2022 Emergency department patient visit [employer] Judi Regina Work Phone: [facility] Work Phone: Start: 09-21-2022 End: 09-21-2022 ambulatory JUDI YOUSSEF Facility:H1 Start: 09-18-2022 End: 09-18-2022 ambulatory BALTAZAR GEORGES . Facility:[facility]1 Start: 09-14-2022 End: 09-14-2022 ambulatory EUN WILSON . Facility:H1 Start: 09-07-2022 End: 09-07-2022 ambulatory Imad Asaad Other [employer] Other Start: 09-07-2022 Telephone encounter Imad Asaad [facility] Start: 09-06-2022 End: 09-07-2022 ambulatory JUDI YOUSSEF Facility:H1 Start: 08-20-2022 End: 08-20-2022 ambulatory BALTAZAR GEORGES . Facility:[facility]1 Start: 08-17-2022 End: 08-18-2022 ambulatory JUDI YOUSSEF Facility:H1 Start: 08-11-2022 End: 08-12-2022 ambulatory JUDI YOUSSEF Facility:H1 Start: 08-08-2022 End: 08-08-2022 ambulatory KATHRIN VANCE Facility:H1 Start: 07-22-2022 End: 07-22-2022 Patient encounter procedure Anai FORBES [facility] Start: 07-21-2022 End: 07-21-[address] NORA WINN Facility:H1 Start: 07-15-2022 ambulatory JUDI UGALDEMER Facility: H1 Start: 07-12-2022 Encounter for genera l adult medical examination without abnormal findings JUDI YOUSSEF [facility] Start: 07-08-2022 End: 07-09-2022 ambulatory JUDI REGINA Facility:[facility]1 Start: 07-08-2022 End: 07-09-2022 Encounter for general adult medical examination without abnormal findings JUDI REGINA Facility:H1 Start: 07-05-2022 End: 07-05-[address] JOHNATHAN RUDOLPH Facility:H1 Start: 06-07-2022 End: 06-07-2022 ambulatory BALTAZAR GEORGES . Facility:H1 Start: 06-06-2022 End: 06-06-2022 ambulatory BALTAZAR GEORGES . Facility:H1 Start: 06-04-2022 End: 06-04-[address] NORA WINN Facility:H1 Start: 04-29-2022 End: 04-29-2022 Lab Drop off Anai FORBES [facility] Start: 04-14-2022 End: 04-14-2022 Patient encounter procedure Monique Marquez [facility] Start: 03-27-2022 End: 03-30-2022 Evaluation and management of inpatient SHAIKH Juan Luis DAVIS Facility:H1 Start: 03-01-2022 End: 03-01-2022 Patient encounter procedure Monique Marquez [facility] Start: 02-02-2022 End: 02-02-2022 ambulatory BALTAZAR GEORGES . Facility:H1 Start: 01-28-2022 End: 01-28-2022 Patient encounter procedure Monique Marquez [facility] Start: 01-11-2022 End: 01-11-2022 Patient encounter procedure Anai FORBES [facility] Start: 12-24-2021 End: 12-24-2021 Patient encounter procedure JHOANA MELGOZA [facility] Start: 08-13-2019 End: 08-16-2019 Evaluation and management of inpatient LEONA MORTENSEN Facility:[facility] Procedures Date Procedure Procedure Detail Performing Clinician Start: 03-12-2025 Computed tomography of abdomen and pelvis with contrast Kailey Mosley APRN Work Phone: Start: 03-12-2025 CT angiography of thorax Kailey Mosley APRN Work Phone: Start: 03-12-2025 Plain chest X-ray Kailey Mosley APRN Work Phone: Start: 12-18-2024 Urine culture Kailey Mosley APRN Work Phone: Start: 08-30-2024 Glucose blood reagent [...] Work Phone: Start: 08-29-2024 Assay of magnesium Chda Mclaughlin MD Work Phone: Start: 08-29-2024 BASIC METABOLIC PANEL W/ REFLEX TO MG FOR LOW K Chad Mclaughlin MD Work Phone: Start: 08-28-2024 Glucose blood reagent strip Obdulio Muro i, MD Work Phone: Start: 08-28-2024 Assay of magnesium Chad Mclaughlin MD Work Phone: Start: 08-28-2024 End: 08-28-2024 Comprehensive metabolic panel Ventura Aanya MD Work Phone: Start: 08-28-2024 Radiologic exam abdomen 1 view Nena Nicole MD Work Phone: Start: 07-13-2024 Gluc bld gluc mntr dev cleared fda spec home use Kulwant Hodge MD Work Phone: Start: 06-20-2024 Gluc bld gluc mntr dev cleared fda spec home use Kulwant Hodge MD Work Phone: Start: 05-11-2024 Esophagogastroduodenoscopy [employer] Judi morales Work Phone: Start: 07-14-2023 Esophagoscp rig transoral hypopharynx crv esoph Evelyn Black RN Start: 05-25-2023 Esophageal motility study w/interp&rpt Evelyn Black RN Start: 03-23-2023 Computed tomography of abdomen and pelvis with contrast [employer] Judi Youssef Work Phone: Start: 02-15-2023 Computed tomography of abdomen and pelvis with contrast [employer] Judi Youssef Work Phone: Start: 11-04-2022 CT of small intestine [employer] Judi Youssef Work Phone: Start: 10-26-2022 Computed tomography of abdomen and pelvis with contrast [employer] Judi Youssef Work Phone: Start: 01-11-2022 Esophagogastroduodenoscopy Anai FORBES Start: 05-13-2021 Esophagogastroduodenoscopy JHOANA Vázquez Start: 09-30-2020 Esophagogastroduodenoscopy JHOANA Vázquez Start: 03-13-2020 Colonoscopy Kulwant Hodge MD Work Phone: Start: 03-13-2020 Colonoscopy JHOANA MELGOZA Start: 01-30-2020 Esophagogastroduodenoscopy JHOANA Vázquez Start: 08-15-2019 FLUOROSCOPY OF UPPER GI AND SMALL BOWEL USING OTHER CONTRAST ORESTES CONDON Start: 05-17-2019 Colonoscopy JHOANA MELGOZA Start: 05-17-2019 Esophagogastroduodenoscopy JHOANA Vázquez Start: 03-02-2019 Hernia surgical mesh (physical object) JHOANA MELGOZA Comment on above: Dr. Mortensen in [place]. Hernia repair JHOANA MELGOZA Hysterectomy JHOANA MELGOZA Plan of Treatment Date Care Activity Detail Author Start: 03-13-2030 Screening for malignant neoplasm of colon [facility] Start: 05-06-2025 Influenza vaccination Influenza Vaccine (Season Ended) [facility] Start: 04-19-2025 End: 04-19-2025 Admission to same day surgery center 04/19/2025 12:30 PM EDT - 04/19/2025 1:00 PM EDT Surgery [facility] [address] [place] [address] Justin Lucero MD [address] [facility] [address] [place] [address] COLORECTAL CANCER SCREENING, NOT HIGH RISK [facility] Comment on above: COLORECTAL CANCER SCREENING, NOT HIGH RI SK Start: 04-19-2025 End: 04-19-2025 Colonoscopy flx dx w/collj spec when pfrmd COLORECTAL CANCER SCREENING, NOT HIGH RISK Dysphagia, unspecified Screening for colon cancer 04/19/2025 12:30 PM EDT [facility] Start: 04-19-2025 Subsequent hospital visit by physician 04/19/2025 12:30 PM EDT Hospital Encounter [facility] [address] [place] [address] Justin Lucero MD [address] [address] [facility] Start: 04-05-2025 Influenza vaccination Flu vaccine (#1) [facility] Start: 04-01-2025 End: 04-01-2025 Admission to same day surgery center 04/01/2025 11:45 AM EDT - 04/01/2025 12:00 PM EDT Surgery [facility] [address] [place] [address] Justin Lucero MD [address] [address] ESOPHAGOGASTRODUODENOSCOPY BIOPSY [facility] Comment on above: ESOPHAGOGASTRODUODENOSCOPY BIOPSY Start: 04-01-2025 End: 04-01-2025 Egd transoral biopsy single/multiple ESOPHAGOGASTRODUODENOSCOPY BIOPSY Gastroesophageal reflux disease, unspecified whether esophagitis present 04/01/2025 11:45 AM EDT [facility] Start: 04-01-2025 Subsequent hospital visit by physician 04/01/2025 11:45 AM EDT Hospital Encounter [facility] [address] [place] [address] Justin Lucero MD [address] [address] ANIVAL CUMMINS Start: 04-01-2025 End: 04-01-2025 Patient encounter procedure 04/01/2025 9:40 AM EDT Off ice Visit PEPPER CONLEY [address] [place] [id number] Katerinaobed Eileen, [employer] [address] [place] [address] [facility]PPER CONLEY Start: 03-12-2025 Urine culture [facility] Start: 03-12-2025 Bacteria identified in Urine by Culture Urine Culture [facility] Start: 02-07-2025 End: 02-07-2025 Clinical Support 02/07/2025 9:45 AM EDT Clinical Support PEPPER CONLEY [address] [place] [address] [facility]PPER [facility]LEY Start: 01-07-2025 End: 01-07-2025 Patient encounter procedure PEPPER CONLEY Comment on above: Arrived Start: 01-07-2025 End: 01-07-2026 CBC W Auto Differential panel - Blood CBC auto differential Lab Routine Seizure ([facility]/HCC) Expected: 01/07/2025 (Approximate), Expires: 01/07/2026 [facility] Comment on above: Expected: 01/07/2025 (Approximate), Expi res: 01/07/2026 Start: 01-07-2025 End: 01-07-2026 Comprehensive metabolic 2000 panel - Serum or Plasma Comprehensive metabolic panel Lab Routine Seizure ([facility]/HCC) Expected: 01/07/2025 (Approximate), Expires: 01/07/2026 [facility] Work Phone: Comment on above: Expected: 01/07/2025 (Approximate), Expi res: 01/07/2026 Start: 01-07-2025 End: 01-07-2026 Levetiracetam level Levetiracetam level Lab Routine Seizure ([facility]/HCC) Expected: 01/07/2025 (Approximate), Expires: 01/07/2026 [facility] Comment on above: Expected: 01/07/2025 (Approximate), Expi res: 01/07/2026 Start: 01-07-2025 End: 01-07-2026 Vestibular test (VNG) Vestibular test (VNG) Neurology Routine Dizziness Expected: 01/07/2025 (Approximate), Expires: 01/07/2026 [facility] Comment on above: Expected: 01/07/2025 (Approximate), Expi res: 01/07/2026 Start: 12-18-2024 Bacteria identified in Urine by Culture Urine Culture [facility] Start: 12-18-2024 Urine culture [facility] Start: 11-29-2024 End: 11-29-2024 Patient encounter procedure 11/29/2024 11:00 AM EDT Office Visit [facility] [address] [place] [address] Kulwant Hodge MD [address] [place] [address] [facility] Start: 11-26-2024 End: 11-26-2025 Polysomnography [facility] Routine History of obstructive sleep apnea Migraine without aura and without status migrainosus, not intractable (CMS/HCC) Expected: 11/26/2024 (Approximate), Expires: 11/26/2025 [facility] Work Phone: Comment on above: Expected: 11/26/2024 (Approximate), Expi res: 11/26/2025 Start: 08-31-2024 End: 08-30-2025 Basic metabolic 2000 panel - Serum or Plasma Basic Metabolic Panel Lab Routine Ileus (HCC) Generalized abdominal pain Hypokalemia Expected: 08/31/2024, Expires: 08/30/2025 [facility] Comment on above: Expected: 08/31/2024, Expires: Start: 08-31-2024 End: 08-30-2025 Magnesium [Mass/volume] in Serum or Plasma Magnesium Lab Routine Ileus (HCC) Generalized abdominal pain Hypokalemia Expected: 08/31/2024, Expires: 08/30/2025 [facility] Comment on above: Expected: 08/31/2024, Expires: Start: 08-17-2024 End: 08-17-2025 Radiologic exam swallow function contrast study FL MODIFIED BARIUM SWALLOW W VIDEO Imaging Routine Other dysphagia Expected: 08/17/2024, Expires: 08/17/2025 [facility] Comment on above: Expected: 08/17/2024, Expires: Start: 08-17-2024 End: 08-17-2024 Egd transoral biopsy single/multiple ESOPHAGOGASTRODUODENOSCOPY BIOPSY Other dysphagia 08/17/2024 12:58 PM [facility] Start: 07-13-2024 End: 07-13-2024 Patient encounter procedure [facility] Comment on above: Arrived Start: 06-22-2024 Shingles vaccine (2 of 2) Shingles vaccine (2 of 2) [facility] Start: 06-20-2024 End: 06-20-2025 Basic metabolic 1998 panel - Serum or Plasma Basic metabolic panel Lab Routine Hypoglycemia Expected: 06/20/2024 (Approximate), Expires: 06/20/2025 [facility] Comment on above: Expected: 06/20/2024 (Approximate), Expi res: 06/20/2025 Start: 06-20-2024 End: 06-20-2025 C peptide [Mass/volume] in Serum or Plasma --fasting C PEPTIDE FASTING Lab Routine Hypoglycemia Expected: 06/20/2024 (Approximate), Expires: 06/20/2025 [facility] Work Phone: Comment on above: Expected: 06/20/2024 (Approximate), Expi res: 06/20/2025 Start: 06-20-2024 End: 06-20-2025 Hepatic function 2000 panel - Serum or Plasma Hepatic function panel Lab Routine Hypoglycemia Expected: 06/20/2024 (Approximate), Expires: 06/20/2025 [facility] Comment on above: Expected: 06/20/2024 (Approximate), Expi res: 06/20/2025 Start: 06-20-2024 End: 06-20-2025 Insulin, fasting Insulin, fasting Lab Routine Hypoglycemia Expected: 06/20/2024 (Approximate), Expires: 06/20/2025 [facility] Comment on above: Expected: 06/20/2024 (Approximate), Expi res: 06/20/2025 Start: 06-20-2024 End: 06-20-2025 Insulin-like growth factor 2 Insulin-like growth facto r 2 Lab Routine Hypoglycemia Expected: 06/20/2024 (Approximate), Expires: 06/20/2025 [facility] Comment on above: Expected: 06/20/2024 (Approximate), Expi res: 06/20/2025 Start: 06-20-2024 End: 06-20-2025 Proinsulin Proinsulin Lab Routine Hypoglycemia Expected: 06/20/2024 (Approximate), Expires: 06/20/2025 [facility] Comment on above: Expected: 06/20/2024 (Approximate), Expi res: 06/20/2025 Start: 05-11-2024 [facility] Start: 05-06-2024 COVID-19 Vaccine ( season) COVID-19 Vaccine ( season) [facility] Start: 05-06-2024 COVID-19 Vaccine ( season) COVID-19 Vaccine ( season) [facility] Start: 05-06-2024 Influenza vaccination Influenza Vaccine (#1) [facility] Start: 04-05-2024 Influenza vaccination Flu vaccine (#1) [facility] Start: 05-06-2023 Covid-19 Vaccine ( season) Covid-19 Vaccine ( season) [facility] Start: 05-06-[address] [facility] Start: 09-05-2022 DEPRESSION ASSESSMENT DEPRESSION ASSESSMENT [facility] Start: 01-01-2022 COVID-19 VACCINE (4 - Pfizer series) COVID-19 VACCINE (4 - Pfizer series) [facility] Start: 2020 Pneumococcal 50+ years Vaccine (1 of 1 - PCV) Pneumococcal 50+ years Vaccine (1 of 1 - PCV) [facility] Start: 2020 SHINGRIX VACCINE (1 of 2) SHINGRIX VACCINE (1 of 2) [facility] Start: 2015 COLOGUARD (FIT-DNA) COLOGUARD (FIT-DNA) [facility] Start: [address] [facility] Start: 2015 COLORECTAL CANCER SCREENING COLORECTAL CANCER SCREENING [facility] Start: [address]GR[address] [facility] Start: 2015 DIABETES SCREEN DIABETES SCREEN [facility] Start: 2015 Diabetes Screening Diabetes Screening [facility] Start: 2015 FECAL OCCULT BLOOD FECAL OCCULT BLOOD [facility] Start: 2015 Lipid 1996 panel - Serum or Plasma Lipid Screening [facility] Start: 2015 [address]EN LIPID SCREEN [facility] Start: 2015 Screening for malignant neoplasm of colon [facility] [employer] Start: [address] [facility] Start: 2010 Lipid panel Lipids [facility] [employer] Start: [address] [facility] Start: 2010 Screening for malignant neoplasm of breast [facility] Start: 2005 Diabetes screen Diabetes screen [facility] [employer] Start: 2000 HPV TEST[address] TESTING [facility] Start: 2000 Screening for malignant neoplasm of cervix [facility] Start: 1991 PAP TESTING PAP TESTING [facility] Start: 1991 Screening for malignant neoplasm of cervix Pap Smear [facility] Start: 1989 DTaP/Tdap/Td vaccine (1 - Tdap) DTaP/Tdap/Td vaccine (1 - Tdap) [facility] [employer] Start: 1989 Hepatitis B vaccine (1 of 3 - 19+ 3-dose series) Hepatitis B vaccine (1 of 3 - 19+ 3-dose series) [facility] Start: 1989 Urine microalbumin profile [facility] Start: 1988 HEPATITIS C SCREENING HEPATITIS C SCREENING [facility] Start: 1988 Hepatitis C screening Hepatitis C screen [facility] [employer] Start: 1988 HIV SCREENING HIV SCREENING [facility] Start: 1985 HIV screening HIV screen [facility] Start: 1982 Depression Monitoring Depression Monitoring [facility] Start: 1982 Depression Screen Depression Screen [facility] Start: 1970 COVID-19 VACCINE (#1) COVID-19 VACCINE (#1) [facility] Start: 1970 HEPATITIS B (1 of 3 - 3-dose series) HEPATITIS B (1 of 3 - 3-dose series) [facility] Start: 1970 Hepatitis B Vaccine (1 of 3 - 3-dose series) Hepatitis B Vaccine (1 of 3 - 3-dose series) [facility] Start: 1970 Screening for malignant neoplasm of colon [facility] End: 09-18-2024 Basic Metabolic Panel w/ Reflex to MG Basic Metabolic Panel w/ Reflex to MG Lab Routine Daily for 3 Weeks starting 08/29/2024 until 09/18/2024, 2 completed [facility] Comment on above: Daily for 3 Weeks starting 08/29/2024 un til 09/18/2024, 2 completed End: 09-18-2024 CBC W Auto Differential panel - Blood CBC with Auto Differential Lab Routine Daily for 3 Weeks starting 08/29/2024 until 09/18/2024, 2 completed [facility] Comment on above: Daily for 3 Weeks starting 08/29/2024 un til 09/18/2024, 2 completed End: 07-29-2024 EGD - THERAPEUTIC, EUS, OR TUBE INTERVENTIONS EGD - THERAPEUTIC, EUS, OR TUBE INTERVENTIONS Endoscopy Routine Gastroparesis 1 Occurrences starting 07/29/2023 until 07/29/2024 [facility] Work Phone: Comment on above: 1 Occurrences starting 07/29/2023 until 07/29/2024 End: 05-16-2024 Esophageal motility study w/interp&rpt MANOMETRY ESOPHAGEAL Endoscopy Routine Nausea 1 Occurrences starting 05/16/2023 until 05/16/2024 [facility] Work Phone: Comment on above: 1 Occurrences starting 05/16/2023 until 05/16/2024 Esophageal motility study w/interp&rpt MANOMETRY ESOPHAGEAL Endoscopy Routine Nausea 05/25/2023 [facility] Work Phone: End: 06-14-2024 Gastric emptying imaging study NM GASTRIC EMPTYING SOLID Radiology Routine Nausea 1 Occurrences starting 05/16/2023 until 06/14/2024 [facility] Work Phone: Comment on above: 1 Occurrences starting 05/16/2023 until 06/14/2024 Glucose [Mass/volume ] in Serum or Plasma POCT glucose Point of Care Testing Routine 4X Daily until discontinued starting 08/28/2024 [facility] Comment on above: 4X Daily until discontinued starting Oxygen therapy [Mini mum Data Set] Initiate Oxygen Therapy Protocol Respiratory Care Routine As Needed until discontinued starting 08/17/2024 [facility] Work Phone: Comment on above: As Needed until discontinued starting Oxygen therapy [Mini mum Data Set] Initiate Oxygen Therapy Protocol Respiratory Care Routine As Needed until discontinued starting 08/28/2024 [facility] Work Phone: Comment on above: As Needed until discontinued starting Patient Education [facility] Work Phone: Patient referral [facility] Work Phone: SURGICAL PATHOLOGY [facility] Work Phone: Comment on above: Release Upon Ordering for 1 Occurrences starting 07/14/2023, 1 completed [facility] Immunizations Immunization Date Immunization Notes Care Provider [facility] 02-19-2025 zoster vaccine recombinant Rambo Purcell [facility] 04-27-2024 zoster vaccine recombinant Kulwant Hodge MD Work Phone: [facility] 06-15-2022 SARS-CoV-2 (COVID-19 ) [id number] Yolanda Lou [facility] 06-09-2022 influenza, seasonal, injectable Kulwant Hodge MD Work Phone: [facility] 06-09-2022 influenza virus vaccine, unspecified formulation Nurse 2 Work Phone: [facility] 03-18-2022 SARS-CoV-2 mRNA ([id number] jett) vaccine Ospina SALAM [facility] 11-06-2021 SARS-CoV-2 (COVID-19 ) mRNA BNT-162b2 vax Ospina SALAM [facility] 05-06-2021 influenza virus vaccine, unspecified formulation JHOANA MELGOZA [facility] 02-26-2021 SARS-CoV-2 (COVID-19 ) mRNA BNT-162b2 vax JHOANA ABAD [facility] 02-05-2021 SARS-CoV-2 (COVID-19 ) mRNA BNT-162b2 vax Ospina SALAM [facility] Comment on above: Result Comment: 2021: [id number] NEGATED: Highlighted row has not occurred!04-14-2022 influenza virus vaccine, unspecified formulation Monique Marquez [facility] Payers Date Payer Category Payer [facility] [id number] 2022 Unknown RINA CASTRO PPO [id number] 2022-Present [phone] [address] [place] [address] PPO [id number] 2018 Private Health Insurance [id number] 2018 Private Health Insurance [id number] 1970 Unknown [id number] 2.16.840.1.579913.3.579.2 .647 1970 Unknown [id number] 2.16.840.1.115223.3.579.2 .593 1970 Unknown [id number] 2.16.840.1.465393.3.579.2 .593 1970 Unknown [id number] 2.16.840.1.638241.3.579.2 .593 1970 Unknown [id number] 2.16.840.1.892947.3.579.2 .593 1970 Unknown [id number] 2.16.840.1.844132.3.579.2 .593 1970 Unknown [id number] 2.16.840.1.049616.3.579.2 .593 1970 Unknown [id number] 2.16.840.1.919924.3.579.2 .593 1970 Unknown [id number] 2.16.840.1.245872.3.579.2 .593 1970 Unknown [id number] 2.16.840.1.438712.3.579.2 .593 1970 Unknown [id number] 2.16.840.1.461210.3.579.2 .593 1970 Unknown [id number] 2.16.840.1.272719.3.579.2 .593 1970 Unknown [id number] 2.16.840.1.944533.3.579.2 .593 1970 Unknown [id number] 2.16.840.1.492768.3.579.2 .593 1970 Unknown [id number] 2.16.840.1.974062.3.579.2 .593 1970 Unknown [id number] 2.16.840.1.725466.3.579.2 .593 1970 Unknown [id number] 2.16.840.1.898538.3.579.2 .593 1970 Unknown [id number] 2.16.840.1.845981.3.579.2 .593 1970 Unknown [id number] 2.16.840.1.429091.3.579.2 .593 1970 Unknown [id number] 2.16.840.1.797417.3.579.2 .593 1970 Unknown [id number] 2.16.840.1.324349.3.579.2 .593 1970 Unknown [id number] 2.16.840.1.780303.3.579.2 .356 1970 Unknown [id number] 2.16.840.1.663219.3.579.2 .356 1970 Unknown [id number] 2.16.840.1.502195.3.579.2 .1286 1970 Unknown [id number] 2.16.840.1.496159.3.579.2 .1286 1970 Unknown [id number] 2.16.840.1.158916.3.579.2 .1286 1970 Unknown [id number] 2.16.840.1.634964.3.579.2 .1286 1970 Unknown [id number] 2.16.840.1.594861.3.579.2 .727 1970 Unknown [id number] 2.16.840.1.328831.3.579.2 .727 1970 Unknown [id number] 2.16.840.1.669571.3.579.2 .727 1970 Unknown [id number] 2.16.840.1.728989.3.579.2 .727 1970 Unknown [id number] 2.16.840.1.598768.3.579.2 .727 1970 Unknown [id number] 2.16.840.1.299750.3.579.2 .727 1970 Unknown [id number] 2.16.840.1.361165.3.579.2 .727 1970 Unknown [id number] 2.16.840.1.374768.3.579.2 .1259 1970 Unknown [id number] 2.16.840.1.007142.3.579.2 .1259 1970 Unknown [id number] 2.16.840.1.062440.3.579.2 .1259 1970 Unknown [id number] [id number] .1259 1970 Unknown [id number] 2.16.840.1.369619.3.579.2 .727 1970 Unknown [id number] 2.16.840.1.924732.3.579.2 .175 1970 Unknown [id number] 2.16.840.1.412317.3.579.2 .176 1970 Unknown [id number] 2.16.840.1.836069.3.579.2 .176 1970 Unknown [id number] 2.16.840.1.248531.3.579.2 .727 1970 Unknown [id number] 2.16.840.1.191076.3.579.2 .727 1970 Unknown [id number] 2.16.840.1.460499.3.579.2 .72 1970 Unknown [id number] 2.16.840.1.493389.3.579.2 .727 1970 Unknown [id number] 2.16.840.1.114354.3.579.2 .1970 Unknown [id number] 2.16.840.1.679632.3.579.2 .72 1970 Unknown [id number] 2.16.840.1.577098.3.579.2 .1970 Unknown [id number] 2.16.840.1.308415.3.579.2 .727 1959 Medicaid [id number] 1959 Self-pay [id number] 1959 Unknown [id number] 1959 Unknown [id number] Medicare Medicare [id number] Medicare Medicare [id number] Unknown [id number] .840.1.826915.3.579.2 .531 Unknown [id number] 2.16840.1.107244.3.579.2 .531 Unknown [id number] 2.16840.1.336797.3.579.2 .531 Worker's Compensation [employer] Misc [id number] Social History Date Type Detail Facility Start: 12-03-2021 End: 06-05-2025 Tobacco smoking status Ex-smoker (finding) [facility] Start: 08-12-2020 End: 08-28-2024 Sex Assigned At Female [facility] Tobacco smoking status Never [facility] Start: 1970 Sex Assigned At Female F [facility] End: 09-05-2011 History of tobacco use Current smoker [facility] Work Phone: End: 09-05-2011 History of tobacco use Cigarette Smoker [facility] Work Phone: Start: 04-28-2018 End: 08-15-2024 Tobacco use and exposure Smokeless tobacco non-user [facility] Work Phone: Start: 04-28-2018 End: 03-18-2025 Alcohol intake Current drinker of alcohol (finding) [facility] Start: 08-12-2020 End: 08-28-2024 History of Social function [facility] Start: 04-28-2018 End: 05-06-2023 Tobacco Comment still smokes [facility] Start: 04-28-2018 [facility] Start: 1970 Sex Assigned At Not on file [facility] Start: 07-14-2023 Alcohol intake Ex-drinker (finding) [facility] Start: 06-08-2024 Tobacco smoking stat [facility] Never smoked tobacco [facility] Start: 07-13-2024 End: 01-07-2025 Alcoholic beverage intake Lifetime non-drinker (finding) [facility] Start: 08-15-2024 Alcohol Comment Rare [place] Has the web care [employer], [employer], or water company threatened to shut off services in your home in past 12Mo No Lat49 How often to you hav e a drink containing alcohol? Never Lat49 (I/We) worried yelena er (my/our) food would run out before (I/we) got money to buy more. Never true Lat49 Start: 05-15-2015 End: 12-19-2024 Sex Female (finding) [facility] Sexual Orientation [facility] Goals Date Patient Goal Desired Activity /State Functional Status Date Assessment Result Facility 10-19-2024 Functional Status N/A [facility] 10-19-2024 Functional Status [facility] 02-16-2024 Functional Status N/A [facility] [place] 02-19-2023 Functional Status N/A [facility] 07-22-2022 Functional Status N/A [facility] 04-14-2022 Functional Status N/A [facility] Clinical Notes 12-02-2021 to 06-11-2025 Enedelia Willoughby RN - 03/18/2025 8:45 AM EDT Note Date & Type Note Facility 06-11-2025 Note Patient Education Custom Cystoscopy with Urethral Dilation ??? Voiding after the procedure: there may be some pain, urethral bleeding, burning, urgency, frequency and blood tinged urine following the procedure. These symptoms usually resolve within 2-5 days. Drink the amount of fluid it takes to keep the urine pink to yellow or clear in color. Drinking enough water and fluids will help to ease any discomfort after your procedure. ??? If you are having problems that seem out of the ordinary, please call. ??? If unable to contact your physician and you feel it is an emergency, go to the nearest emergency room or call 911 ??? Diet ??? you may resume your normal diet. ??? Activity ??? you may resume your normal activities ??? Call if you have a fever over 100 degrees [facility] 06-11-2025 Note History and Physical Patient: CONSTANTINO CARDOSO Age: 55 years Sex: Female : 1970 Associated Diagnoses: None Author: Flavio JUAREZ MD Preoperative Information Indication for surgery: Cystoscopy with urethral dilation. Associated symptoms: Recurrent UTI's, Urethral stricture, and renal cyst. Chief Complaint Recurrent UTI's, urethral stricture, and renal cyst Review of Systems Constitutional: Negative. Eye: Negative. Ear/Nose/Mouth/Throat: Negative. Respiratory: No shortness of breath. Cardiovascular: No palpitations. Genitourinary: Recurrent UTI's, urethral stricture, renal cyst. Hematology/Lymphatics: Negative. Endocrine: Negative. Immunologic: Negative. Neurologic: Alert and oriented X4. Health Status Allergies: Allergic Reactions (Selected) Severity Not Documented Flexeril- Swelling of throat. Penicillin- Swelling. Current medications: Home Medications (19) Active acarbose 25 mg oral tablet 25 mg = 1 tab(s), Oral, Daily aspirin 81 mg Oral EC Tab 81 mg = 1 tab(s), Oral, Daily Colestid 1 g Tab 2 gm = 2 tab(s), Oral, Daily cyanocobalamin 1000 mcg Tab 1,000 mcg = 1 tab(s), Oral, Daily Estrace 0.1 mg/g Cream 1 gm, Vaginal, As Directed famotidine 40 mg Tab 40 mg = 1 tab(s), Oral, Once a day (at bedtime) Ibgard 90 mg oral delayed release capsule 180 mg = 2 cap(s), Oral, BID Keppra 500 mg Tab 500 mg = 1 tab(s), Oral, BID lisinopril 40 mg Tab 40 mg = 1 tab(s), Oral, Daily Metamucil 3.4 g/5.2 g oral powder 3.4 gram, PRN, Oral, TID metoclopramide 5 mg Tab metoprolol succinate 50 mg ER Tab 50 mg = 1 tab(s), Oral, Daily Multi Vitamins oral tablet 1 tab(s), Oral, Daily Nexium 40 mg Cap-EC 40 mg, Oral, BID ondansetron 4 mg Dis Tab Pantoprazole [address] Tab 40 mg = 1 tab(s), Oral sertraline 50 mg Tab 50 mg = 1 tab(s), Oral, Daily sucralfate 1 g/10 mL Oral Susp 10 mL 1 gm = 10 mL, Oral, QIDACHS Tylenol 325 mg Tab 325 mg = 1 tab(s), PRN, Oral, q4hr Problem list: All Problems Heartburn / SNOMED CT 20778336 / Confirmed Gallstone / SNOMED CT 855360136 / Confirmed Kidney stones / SNOMED CT 903586024 / Confirmed Seizures / SNOMED CT 209810326 / Confirmed Migraines / SNOMED CT 99083330 / Confirmed Arthritis / SNOMED CT 8725134 / Confirmed Hernia, hiatal / SNOMED CT 640106541 / Confirmed High blood pressure / SNOMED CT 4350864461 / Confirmed BMI 26.0-26.9,adult / SNOMED CT 6995699963 / Confirmed Urinary urgency / SNOMED CT 930450549 / Confirmed Hx of urinary tract infection / SNOMED CT 9414415475 / Confirmed Other post-traumatic urethral stricture, female / SNOMED CT 267521726 / Confirmed Proteinuria / SNOMED CT 45232314 / Confirmed 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 Gastroparesis / SNOMED CT 372034053 / Confirmed Diarrhea / SNOMED CT 059292797 / Confirmed Epigastric pain / SNOMED CT 097693360 / Confirmed Foreign body in stomach, sequela / SNOMED CT 546402387 / Confirmed 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 Nausea and vomiting / SNOMED CT 26481871 / Confirmed Acid reflux / SNOMED CT 072888213 / Confirmed Irregular bowel habits / SNOMED CT 5428029274 / Confirmed Constipation / SNOMED CT 87248219 / Confirmed Nausea / SNOMED CT 9211779489 / Confirmed Stomach pain / SNOMED CT 026856529 / Confirmed Back pain / SNOMED CT 973215845 / Confirmed Hard stool / SNOMED CT 342823148 / Confirmed Dark stools / SNOMED CT 88579373 / Confirmed Asymptomatic microscopic hematuria / SNOMED CT 0380477369 / Confirmed Recurrent UTI / SNOMED CT 138923124 / Confirmed Mixed incontinence urge and stress / SNOMED CT 64467696 / Confirmed Lower abdominal pain / SNOMED CT 56151492 / Confirmed Dysphagia / SNOMED CT 34225945 / Confirmed Globus sensation / SNOMED CT 592010336 / Confirmed Change in bowel habits / SNOMED CT 754200687 / Confirmed Early satiety / SNOMED CT 8817093595 / Confirmed Complex renal cyst / SNOMED CT 2301035977 / Confirmed Colon polyps / SNOMED CT 839086117 / Confirmed Resolved: Mitral valve prolapse / SNOMED CT 4502621082 Canceled: Gastric bezoar / SNOMED CT 617150039 Histories Family History: Diabetes mellitus type 1 Grandparent Crohn's disease Sister Grandparent Procedure history: Esophagogastroduodenoscopy ([id number]) on 01/11/2022 at 51 Years. Esophagogastroduodenoscopy ([id number]) on 05/13/2021 at 50 Years. Esophagogastroduodenoscopy ([id number]) on 09/30/2020 at 50 Years. Colonoscopy ([id number]) on 03/13/2020 at 49 Years. Esophagogastroduodenoscopy ([id number]) on 01/30/2020 at 49 Years. Esophagogastroduodenoscopy ([id number]) on 05/17/2019 at 48 Years. Colonoscopy ([id number]) on 05/17/2019 at 48 Years. Hernia surgical mesh ([id number]) on 03/02/2019 at 48 Years. Comments: 01/13/2020 22:12 EDT - Nina Menezes Dr[address] in [place]. Cholecystectomy ([id number]). Hernia repair ([id number]). Hysterectomy ([id number]). Social History Social & [employer]os[employer] (more content not included)... [facility] Comment on above: Result Comment: Elec tronically Signed By: SUYAPA BAKER, Flavio Carvalho.br\Date and Time Signed: 06/11/25 08:25 EDT 04-08-2025 Hospital Discharge instructions Patient Education 04/08/2025 12:50:25 Urethral Dilation Urethral Dilation Urethral dilation is a procedure to stretch open (dilate) the urethra. The urethra is the tube that drains pee (urine) from the bladder out of the body. In females, the urethra opens above the vaginal opening. In males, the urethra opens at the tip of the penis. Urethral dilation is usually done to treat narrowing of the urethra (urethral stricture), which can make it difficult to pee (urinate). Urethral strictures can be caused by scar tissue, infection, injury, or surgery. Urethral dilation widens the urethra so that you can pee normally. Urethral dilation is done through the opening of the urethra. There are no incisions made during the procedure. Tell a health care provider about: Any allergies you have. All medicines you are taking, including vitamins, herbs, eye drops, creams, and ltjp-jho-mhpogrt medicines. Any problems you or family members have had with anesthesia. Any bleeding problems you have. Any surgeries you have had. Any medical conditions you have. Whether you are or may be . What are the risks? Your health care provider will talk with you about risks. These may include: Bleeding. Infection. A return of urethral stricture, which requires repeating the dilation procedure or more surgery. Damage to the urethra, which may require reconstructive surgery. Allergic reactions to medicines. What happens before the procedure? Medicines Ask your provider about: Changing or stopping your regular medicines. These include any diabetes medicines or blood thinners you take. Taking medicines such as aspirin and ibuprofen. These medicines can thin your blood. Do not take them unless your provider tells you to. Taking juki-krv-dgkumkc medicines, vitamins, herbs, and supplements. General instructions Follow instructions from your provider about what you may eat and drink. If you will be going home right after the procedure, plan to have a responsible adult: ?Take you home from the hospital or clinic. You will not be allowed to drive. ?Care for you for the time you are told. Ask your provider: ?How your surgery site will be marked. ?What steps will be taken to help prevent infection. These steps may include: ?Removing hair at the surgery site. ?Washing skin with a soap that kills germs. ?Taking antibiotics. What happens during the procedure? An IV may be inserted into one of your veins. You may be given: ?A local anesthetic to numb your urethral opening. This will be applied as a gel that will also lubricate the opening of the urethra. ?A sedative. This helps you relax. ?Anesthesia. This keeps you from feeling pain. It will make you fall asleep for surgery. A thin tube with a light and camera on the end (cystoscope) will be inserted into your urethra. Your urethra will be rinsed (irrigated) with a germ-free (sterile) water solution. Narrow parts of your urethra will be stretched open using a dilator tool. Your surgeon will start with a very thin dilator, then use wider dilators as needed. A thin tube with an inflatable balloon on the tip may be inserted into your urethra. The balloon may be inflated to help stretch your urethra open. The balloon may be coated with a medicine to help the urethra stay open longer. Your urethra will be irrigated. A catheter will be inserted into your bladder at the end of the procedure. The procedure may vary among providers and hospitals. What happens after the procedure? After the procedure, it is common to have: ?Burning pain when peeing. ?Blood in your pee. ?A need to pee frequently. You will be asked to pee before you leave the hospital or clinic. Your pee flow should improve within a few days. You may have a catheter in your bladder for 2 3 days following your procedure. Follow these instructions at home: Medicines Take egvt-igh-kfetwox and prescription medicines only as told by your provider. If you were prescribed antibiotics, take them as told by your provider. Do not stop using the antibiotic even if you start to feel better. Ask your provider if the medicine prescribed to you: ?Requires you to avoid driving or using machinery. ?Can cause constipation. You may need to take these actions to prevent or treat constipation: ?Take rvwn-hpo-amtgfcd or prescription medicines. ?Eat foods that are high in fiber, such as beans, whole grains, and fresh fruits and vegetables. ?Limit foods that are high in fat and processed sugars, such as fried or sweet foods. General instructions If you were given a sedative during the procedure, it can affect you for several hours. Do not drive or operate machinery until your provider says that it is safe. If you were sent home with a soft tube (catheter) to help keep your urethra open, follow your provider's instructions about how and when to use it. Drink enough fluid to keep your pee pale yellow. Return to your normal activities as told by your provider. Ask your provider what activities are safe for you. Keep all follow-up visits. Your provider will check your healing and adjust your treatment plan as needed. Contact a health care provider if: Your pee is cloudy and smells bad. You develop new bleeding when you pee. You pass blood clots when you pee. You have pain that does not get better with medicine. You have a fever. Your genital area is swollen, bruised, or discolored. This includes: ?The penis, scrotum, and inner thighs for males. ?The outer genital organs (vulva) and inner thighs for females. Get help right away if: You develop new bleeding that does not stop. You cannot pee. Your catheter stops draining pee. You cannot pee after your catheter is removed. These symptoms may be an emergency. Get help right away. Call 911. Do not wait to see if the symptoms will go away. Do not drive yourself to the hospital. This information is not intended to replace advice given to you by your health care provider. Make sure you discuss any questions you have with your health care provider. Document Revised: 06/16/2023 Document Reviewed: 06/16/2023 [employer] Patient Education 2023 [employer]. Follow Up Care 03/27/2025 14:50:55 With:SUYAPA BAKER, Flavio Hairston, URL Address: [facility] [address], [place] [address]- [phone] When: Unknown Comments:sched cysto/UD, 6 mos w/ MRI [facility] 04-08-2025 Note Patient Education Urology Urethral Dilation Urethral dilation is a procedure to stretch open (dilate) the urethra. The urethra is the tube that drains pee (urine) from the bladder out of the body. In females, the urethra opens above the vaginal opening. In males, the urethra opens at the tip of the penis. Urethral dilation is usually done to treat narrowing of the urethra (urethral stricture), which can make it difficult to pee (urinate). Urethral strictures can be caused by scar tissue, infection, injury, or surgery. Urethral dilation widens the urethra so that you can pee normally. Urethral dilation is done through the opening of the urethra. There are no incisions made during the procedure. Tell a health care provider about: ??? Any allergies you have. ??? All medicines you are taking, including vitamins, herbs, eye drops, creams, and jmdl-tdk-bfcgwaz medicines. ??? Any problems you or family members have had with anesthesia. ??? Any bleeding problems you have. ??? Any surgeries you have had. ??? Any medical conditions you have. ??? Whether you are or may be . What are the risks? Your health care provider will talk with you about risks. These may include: ??? Bleeding. ??? Infection. ??? A return of urethral stricture, which requires repeating the dilation procedure or more surgery. ??? Damage to the urethra, which may require reconstructive surgery. ??? Allergic reactions to medicines. What happens before the procedure? Medicines Ask your provider about: ??? Changing or stopping your regular medicines. These include any diabetes medicines or blood thinners you take. ??? Taking medicines such as aspirin and ibuprofen. These medicines can thin your blood. Do not take them unless your provider tells you to. ??? Taking bsun-nnx-tmjwbge medicines, vitamins, herbs, and supplements. General instructions ??? Follow instructions from your provider about what you may eat and drink. ??? If you will be going home right after the procedure, plan to have a responsible adult: ? Take you home from the hospital or clinic. You will not be allowed to drive. ? Care for you for the time you are told. ??? Ask your provider: ? How your surgery site will be marked. ? What steps will be taken to help prevent infection. These steps may include: ? Removing hair at the surgery site. ? Washing skin with a soap that kills germs. ? Taking antibiotics. What happens during the procedure? An IV may be inserted into one of your veins. ??? You may be given: ? A local anesthetic to numb your urethral opening. This will be applied as a gel that will also lubricate the opening of the urethra. ? A sedative. This helps you relax. ? Anesthesia. This keeps you from feeling pain. It will make you fall asleep for surgery. ??? A thin tube with a light and camera on the end (cystoscope) will be inserted into your urethra. ??? Your urethra will be rinsed (irrigated) with a germ-free (sterile) water solution. ??? Narrow parts of your urethra will be stretched open using a dilator tool. Your surgeon will start with a very thin dilator, then use wider dilators as needed. ??? A thin tube with an inflatable balloon on the tip may be inserted into your urethra. The balloon may be inflated to help stretch your urethra open. The balloon may be coated with a medicine to help the urethra stay open longer. ??? Your urethra will be irrigated. ??? A catheter will be inserted into your bladder at the end of the procedure. The procedure may vary among providers and hospitals. What happens after the procedure? After the procedure, it is common to have: ? Burning pain when peeing. ? Blood in your pee. ? A need to pee frequently. ??? You will be asked to pee before you leave the hospital or clinic. ??? Your pee flow should improve within a few days. ??? You may have a catheter in your bladder for 2?3 days following your procedure. Follow these instructions at home: Medicines ??? Take gfaq-xal-fdreidk and prescription medicines only as told by your provider. ??? If you were prescribed antibiotics, take them as told by your provider. Do not stop using the antibiotic even if you start to feel better. ??? Ask your provider if the medicine prescribed to you: ? Requires you to avoid driving or using machinery. ? Can cause constipation. You may need to take these actions to prevent or treat constipation: ? Take bsxe-ddd-gdlxudl or prescription medicines. ? Eat foods that are high in fiber, such as beans, whole grains, and fresh fruits and vegetables. ? Limit foods that are high in fat and processed sugars, such as fried or sweet foods. General instructions ??? If you were given a sedative during the procedure, it can affect you for several hours. Do not drive or operate machinery until your provider says that it is safe. ??? If you were sent home with a soft tube (catheter) (more content not included)... [facility] 04-04-2025 Note Progress Note-Francine vail Patient: CONSTANTINO CARDOSO Age: 54 years Sex: Female : 1970 Associated Diagnoses: None Author: Luis Li Jr, DO Postoperative Information Postoperative disposition: Postoperative disposition: To PACU. Optimetrix number: Optimetrix number [id number]. Anesthetic utilized: General. Health Status Allergies: Allergic Reactions (Selected) Severity Not Documented Flexeril- Swelling of throat. Penicillin- Swelling. Physical Examination Vital Signs(Posting Range: 04/01/2025 0:00 EDT - 04/04/2025 7:24 EDT) 04/02/2025 14:00 EDT SpO2 93 % 04/02/2025 14:00 EDT Respiratory Rate Monitored 20 br/min 04/02/2025 14:00 EDT Heart Rate Monitored 47 bpm LOW 04/02/2025 14:00 EDT Systolic Blood Pressure 112 mmHg Diastolic Blood Pressure 75 mmHg Blood Pressure Location Left arm Mean Arterial Pressure, Cuff 87 mmHg 04/02/2025 13:45 EDT SpO2 96 % 04/02/2025 13:45 EDT Heart Rate Monitored 47 bpm LOW Respiratory Rate Monitored 17 br/min 04/02/2025 13:45 EDT Systolic Blood Pressure 135 mmHg Diastolic Blood Pressure 84 mmHg Blood Pressure Location Left arm Mean Arterial Pressure, Cuff 101 mmHg 04/02/2025 13:30 EDT Respiratory Rate Monitored 10 br/min 04/02/2025 13:30 EDT SpO2 95 % 04/02/2025 13:30 EDT Heart Rate Monitored 49 bpm LOW 04/02/2025 13:30 EDT Systolic Blood Pressure 130 mmHg Diastolic Blood Pressure 82 mmHg Blood Pressure Location Left arm Mean Arterial Pressure, Cuff 98 mmHg 04/02/2025 13:25 EDT Heart Rate Monitored 46 bpm LOW 04/02/2025 13:25 EDT Respiratory Rate Monitored 19 br/min 04/02/2025 13:25 EDT SpO2 100 % 04/02/2025 13:25 EDT Systolic Blood Pressure 133 mmHg Diastolic Blood Pressure 87 mmHg Blood Pressure Location Left arm Mean Arterial Pressure, Cuff 102 mmHg 04/02/2025 13:20 EDT Heart Rate Monitored 49 bpm LOW Respiratory Rate Monitored 16 br/min 04/02/2025 13:20 EDT SpO2 96 % 04/02/2025 13:20 EDT Systolic Blood Pressure 112 mmHg Diastolic Blood Pressure 73 mmHg Blood Pressure Location Left arm Mean Arterial Pressure, Cuff 86 mmHg 04/02/2025 13:16 EDT Heart Rate Monitored 54 bpm LOW 04/02/2025 13:16 EDT SpO2 97 % 04/02/2025 13:16 EDT Respiratory Rate Monitored 17 br/min 04/02/2025 13:16 EDT Systolic Blood Pressure 104 mmHg Diastolic Blood Pressure 69 mmHg 04/02/2025 13:16 EDT Temperature Temporal Artery 36.4 DegC Blood Pressure Location Left arm Mean Arterial Pressure, Cuff 81 mmHg Pain Assessment: Controlled. General: Awake, Alert, Appropriate. Respiratory: Adequate air exchange. Cardiovascular: Stable, Normal peripheral perfusion. Neurological: Normal sensory function, Normal motor function. Assessment Anesthetic outcome No anesthetic complications noted. Adequate pain relief. able to void without difficulty, able to ambulate with assist, tolerating PO intake, no N/V. Review / Management Condition: Stable. Plan Transfer/Discharge: Transfer/Discharge Discharge when meets criteria ( To home ). [facility] Comment on above: Result Comment: Elec tronically Signed By: Luis Li Jr, DO\.br\Date and Time Signed: 04/04/25 15:20 EDT 04-04-2025 Note Progress Note-Physic genna Patient: CONSTANTINO CARDOSO Age: 54 years Sex: Female : 1970 Associated Diagnoses: None Author: Luis Li Jr, DO Preoperative Information Anesthesia Preop Info: Time patient last ate or drank 04/02/2025 00:00:00. Anesthesia history: Patient history: None. Family history+: None. Informed consent: Signed by patient. Re-evaluation prior to induction: Initial evaluation reviewed: No significant change. Review of Systems Eye: Negative except as documented in history of present illness. Ear/Nose/Mouth/Throat: Negative except as documented in history of present illness. Respiratory: Negative except as documented in history of present illness. Cardiovascular: Negative except as documented in history of present illness. Musculoskeletal: Negative except as documented in history of present illness. Neurologic: Negative except as documented in history of present illness. Health Status Allergies: Allergic Reactions (Selected) Severity Not Documented Flexeril- Swelling of throat. Penicillin- Swelling. Problem list: All Problems Urinary urgency / SNOMED CT 183237775 / Confirmed Other post-traumatic urethral stricture, female / SNOMED CT 233485653 / Confirmed Stomach pain / SNOMED CT 188925533 / Confirmed Seizures / SNOMED CT 231607522 / Confirmed Recurrent UTI / SNOMED CT 413557112 / Confirmed Proteinuria / SNOMED CT 58576750 / Confirmed Nausea and vomiting / SNOMED CT 94427793 / Confirmed Nausea / SNOMED CT 6430946676 / Confirmed Migraines / SNOMED CT 30852729 / Confirmed Lower abdominal pain / SNOMED CT 13929453 / Confirmed Kidney stones / SNOMED CT 804462842 / Confirmed Irregular bowel habits / SNOMED CT 1819964575 / Confirmed Mixed incontinence urge and stress / SNOMED CT 54178674 / Confirmed High blood pressure / SNOMED CT 8028889303 / Confirmed Hx of urinary tract infection / SNOMED CT 8405536620 / Confirmed Hernia, hiatal / SNOMED CT 487996551 / Confirmed Heartburn / SNOMED CT 82768088 / Confirmed Hard stool / SNOMED CT 305323878 / Confirmed Gastroparesis / SNOMED CT 227845472 / Confirmed Acid reflux / SNOMED CT 033690688 / Confirmed Gallstone / SNOMED CT 858370291 / Confirmed Foreign body in stomach, sequela / SNOMED CT 532970882 / Confirmed Globus sensation / SNOMED CT 606547400 / Confirmed Epigastric pain / SNOMED CT 833194046 / Confirmed Early satiety / SNOMED CT 3263553569 / Confirmed Dysphagia / SNOMED CT 37454295 / Confirmed Diarrhea / SNOMED CT 592221755 / Confirmed Dark stools / SNOMED CT 70538881 / Confirmed Constipation / SNOMED CT 55771384 / Confirmed BMI 26.0-26.9,adult / SNOMED CT 8954724211 / Confirmed Gastric bezoar / SNOMED CT 568026901 / Confirmed 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 Esophagogastroduodenoscopy ([id number]) on 05/13/2021 at 50 Years. Esophagogastroduodenoscopy ([id number]) on 09/30/2020 at 50 Years. Colonoscopy ([id number]) on 03/13/2020 at 49 Years. Esophagogastroduodenoscopy ([id number]) on 01/30/2020 at 49 Years. Esophagogastroduodenoscopy ([id number]) on 05/17/2019 at 48 Years. Colonoscopy ([id number]) on 05/17/2019 at 48 Years. Hernia surgical mesh ([id number]) on 03/02/2019 at 48 Years. Comments: 01/13/2020 22:12 [facility] - [address] in [place]. Cholecystectomy ([id number]). Hernia repair (96078056). Hysterectomy ([id number]). Social History Social & Psychosocial Habits Alcohol Comment: occasionally - 05/10/2019 10:00 - [employer]rell [employer] RepCarlota 03/27/2025 Risk Assessment: Denies Alcohol Use Comment: denies - 09/08/2019 17:28 - Clara Sebastian RN Comment: denies - 09/20/2020 16:07 - Carlota Tinoco RN 03/27/2025 Use: Never Comment: denies - 11/06/2020 07:58 - Kiersten Brody Other Comment: Caffeine- 1-2 cups daily - 05/10/2019 10:00 - [employer] RepBobbyCarlota Substance Abuse 03/27/2025 Risk Assessment: Denies Substance Abuse Comment: denies - 09/08/2019 17:27 - Clraa Sebastian RN Comment: denies - 09/20/2020 16:08 - Carlota Tinoco RN 03/27/2025 Use: Never Comment: denies - 11/06/2020 07:58 - Kiersten Brody Tobacco 03/27/2025 Risk Assessment: Denies Tobacco Use 03/27/2025 Tobacco Use: Former smoker, quit more Smokeless tobacco use: Never Comment: quit 7 years ago - 09/08/2019 17:27 - Clara Sebastian RN 03/27/2025 Tobacco Use: Former smoker, quit more Comment: denies - 09/20/2020 16:08 - Carlota Tinoco RN 03/27/2025 Tobacco Use: Former smoker, quit more (more content not included)... [facility] Comment on above: Result Comment: Elec tronically Signed By: Luis Li Jr, DO\.kenneth\Date and Time Signed: 04/04/25 13:45 EDT 04-02-2025 Note Patient Education - Text Endoscopy Care After Procedure Please read the instructions outlined below and refer to this sheet in the next few weeks. These discharge instructions provide you with general information on caring for yourself after you leave the hospital. Your doctor may also give you specific instructions. While your treatment has been planned according to the most current medical practices available, unavoidable complications occasionally occur. If you have any problems or questions after discharge, please call your doctor. ACTIVITY ??? You may resume your regular activity but move at a slower pace for the next 24 hours. ??? Take frequent rest periods for the next 24 hours. ??? Walking will help expel (get rid of) the air and reduce the bloated feeling in your abdomen. ??? No driving for 24 hours (because of the anesthesia (medicine) used during the test). ??? You may shower. ??? Do not sign any important legal documents or operate any machinery for 24 hours (because of the anesthesia used during the test). NUTRITION ??? Drink plenty of fluids. ??? You may resume your normal diet. ??? Begin with a light meal and progress to your normal diet. ??? Avoid alcoholic beverages for 24 hours or as instructed by your caregiver. MEDICATIONS ??? You may resume your normal medications unless your caregiver tells you otherwise. WHAT YOU CAN EXPECT TODAY ??? You may experience abdominal discomfort such as a feeling of fullness or ???gas??? pains. FOLLOW-UP ??? Your doctor will discuss the results of your test with you. seek immediate medical attention if any of the following occur: ??? Excessive nausea (feeling sick to your stomach) and/or vomiting. ??? Severe abdominal pain and distention (swelling). ??? Trouble swallowing. ??? Temperature over 100 F (37.8??? C). ??? Rectal bleeding or vomiting of blood. Document Released: 04/05/2005 Document Re-Released: 02/13/2007 ExitCare??? Patient Information ???2010 [employer]. Colonoscopy Care After Surgery Please read the instructions outlined below and refer to this sheet in the next few weeks. These discharge instructions provide you with general information on caring for yourself after you leave the hospital. Your doctor may also give you specific instructions. While your treatment has been planned according to the most current medical practices available, unavoidable complications occasionally occur. If you have any problems or questions after discharge, please call your doctor. ACTIVITY You may resume your regular activity, but move at a slower pace for the next 24 hours. Take frequent rest periods for the next 24 hours. Walking will help get rid of the air and reduce the bloated feeling in your abdomen (belly). No driving for 24 hours (because of the anesthesia (medicine) used during the test). You may shower. Do not sign any important legal documents or operate any machinery for 24 hours (because of the anesthesia used during the test). NUTRITION Drink plenty of fluids. You may resume your normal diet as instructed by your doctor. Begin with a light meal and progress to your normal diet. Heavy or fried foods are harder to digest and may make you feel nauseated (sick to your stomach). Avoid alcoholic beverages for 24 hours or as instructed. MEDICATIONS You may resume your normal medications unless your doctor tells you otherwise. WHAT YOU CAN EXPECT TODAY Some feelings of bloating in the abdomen. Passage of more gas than usual. Spotting of blood in your stool or on the toilet paper. FOLLOW-UP Your doctor will discuss the results of your test with you. SEEK IMMEDIATE MEDICAL ATTENTION IF: There is more than a spotting of blood in your stool. There is abdominal distention (your abdomen is swollen). There is vomiting. You have a temperature over 101.5 F. There is abdominal pain or discomfort that is severe or gets worse throughout the day. Gastroenterology Esophageal Dilatation Esophageal dilatation, also called esophageal dilation, is a procedure to widen or open a blocked or narrowed part of the esophagus. The esophagus is the part of the body that moves food and liquid from the mouth to the stomach. You may need this procedure if: ??? You have a buildup of scar tissue in your esophagus that makes it difficult, painful, or impossible to swallow. This can be caused by gastroesophageal reflux disease (GERD). ??? You have cancer of the esophagus. ??? There is a problem with how food moves through your esophagus. In some cases, you may need this procedure repeated at a later time to dilate the esophagus gradually. Tell a health care provider about: ??? Any allergies you have. ??? All medicines you are taking, including vitamins, herbs, eye drops, creams, and uyei-jow-ckdbtuj medicines. ??? Any problems you or family members have had with anesthetic medicines. ??? Any blood disorders you h (more content not included)... [facility] 04-02-2025 Note Endoscopic Procedure Report - Other Patient: CONSTANTINO CARDOSO MRN: [id number] Age: 54 years Sex: Female : 1970 Associated Diagnoses: None Author: Rambo Purcell MD Pre-Procedure Procedure Date 04/02/2025 13:12:00 . Procedure Type: Colonoscopy with removal of tumor(s), polyp(s), or other lesion(s) by snare technique, biopsy. Procedure provider Performed by Rambo Purcell MD. Current history and physical Reviewed. Esophagogastroduodenoscopy ([id number]) on 01/11/2022 at 51 Years. Esophagogastroduodenoscopy ([id number]) on 05/13/2021 at 50 Years. Esophagogastroduodenoscopy ([id number]) on 09/30/2020 at 50 Years. Colonoscopy ([id number]) on 03/13/2020 at 49 Years. Esophagogastroduodenoscopy ([id number]) on 01/30/2020 at 49 Years. Esophagogastroduodenoscopy ([id number]) on 05/17/2019 at 48 Years. Colonoscopy ([id number]) on 05/17/2019 at 48 Years. Hernia surgical mesh ([id number]) on 03/02/2019 at 48 Years. Comments: 01/13/2020 22:[address] in [place]. Cholecystectomy ([id number]). Hernia repair ([id number]). Hysterectomy ([id number]).. Past Medical History Resolved Mitral valve prolapse ([id number]): Resolved.. Family History Diabetes mellitus type 1 Grandparent Crohn's disease Sister Grandparent . Procedure History Esophagogastroduodenoscopy ([id number]) on 01/11/2022 at 51 Years. Esophagogastroduodenoscopy ([id number]) on 05/13/2021 at 50 Years. Esophagogastroduodenoscopy ([id number]) on 09/30/2020 at 50 Years. Colonoscopy ([id number]) on 03/13/2020 at 49 Years. Esophagogastroduodenoscopy ([id number]) on 01/30/2020 at 49 Years. Esophagogastroduodenoscopy ([id number]) on 05/17/2019 at 48 Years. Colonoscopy ([id number]) on 05/17/2019 at 48 Years. Hernia surgical mesh ([id number]) on 03/02/2019 at 48 Years. Comments: 01/13/2020 22:12 EDT - [facility] [address] Dr[address] in [place]. Cholecystectomy ([id number]). Hernia repair ([id number]). Hysterectomy ([id number]).. Colorectal neoplasm risk assessment Average risk. Informed Consent After discussing the rationale, risks and benefits, and alternatives to this procedure, the patient provided signed consent for the procedure. Pre-procedure diagnosis: Diarrhea, clinically significant. Medications (Selected) Inpatient Medications Ordered Lactated Ringers IV Zari 1000 mL 1,000 mL: 1,000 mL, IV, 100 mL/hr, Routine, Start date 04/02/25 12:01:00 EDT, 10 hour(s), Total volume (mL): 1,000, 86.9 kg, 2.03, m2 Sodium Chloride 0.9% IV Zari 1000 mL 1,000 mL: 1,000 mL, IV, 20 mL/hr, Routine, Start date 04/02/25 6:39:00 EDT, 50 hour(s), Total volume (mL): 1,000, 86.9 kg, 2.03, m2 Prescriptions Prescribed Bentyl 10 mg Cap: 10 mg = 1 cap(s), Oral, QID, X 14 day(s), # 56 cap(s), Refills(s) 0, Pharmacy: [facility]/pharmacy #[id number], 170, cm, 03/27/25 10:23:00 EDT, Height/Length Dosing, 86.9, kg, 03/27/25 10:23:00 EDT, Weight Dosing Estrace 0.1 mg/g Cream: 1 gm, Vaginal, As Directed, 42.5 gm, Refill(s) 3, Apply pea-sized amount around urethra every night x 3 weeks, then 2 times weekly for maintenance, [facility]/pharmacy #[id number], 170, cm, 02/16/24 9:10:00 EDT, Height/Length Dosing, 81.7, kg, 02/16/24 9:10:00 EDT... Ibgard 90 mg oral delayed release capsule: 180 mg = 2 cap(s), Oral, BID, # 60 cap(s), Refills(s) 3, [id number], cm, 03/27/25 10:23:00 EDT, Height/Length Dosing, 86.9, kg, 03/27/25 10:23:00 EDT, Weight Dosing Keppra 500 mg Tab: 500 mg = 1 tab(s), Oral, BID, # 60 tab(s), Refills(s) 0, [id number], 170.2, cm, 10/19/24 17:25:00 EST, Height/Length Dosing, 90.5, kg, 10/19/24 17:25:00 EST, Weight Dosing Metamucil 3.4 g/5.2 g oral powder: 3.4 gram, Oral, TID, PRN for constipation, # 1,042 gram, Refills(s) 0, [id number] 170, cm, 03/27/25 10:23:00 EDT, Height/Length Dosing, 86.9, kg, 03/27/25 10:23:00 EDT, Weight Dosing Multi Vitamins oral tablet: 1 tab(s), Oral, Daily, 30 tab(s), Refill(s) 0, [id number], 170.2, cm, 10/19/24 17:25:00 EST, Height/Length Dosing, 90.5, kg, 10/19/24 17:25:00 EST, Weight Dosing aspirin 81 mg Oral EC Tab: 81 mg = 1 tab(s), Oral, Daily, # 30 tab(s), Refills(s) 0, [id number], 170.2, cm, 10/19/24 17:25:00 EST, Height/Length Dosing, 90.5, kg, 10/19/24 17:25:00 EST, Weight Dosing cyanocobalamin 1000 mcg Tab: 1,000 mcg = 1 tab(s), Oral, Daily, # 30 tab(s), Refills(s) 0, [id number], 170.2, cm, 10/19/24 17:25:00 EST, Height/Length Dosing, 90.5, kg, 10/19/24 17:25:00 EST, Weight Dosing Documented Medications Documented Pantoprazole [address] Tab: 40 mg = 1 tab(s), Oral, Refills(s) 0, Control of stomach acid Tylenol 325 mg Tab: 325 mg = 1 tab(s), Oral, q4hr, PRN Pain, Refills(s) 0 acarbose 25 mg oral tablet: 25 mg = 1 tab(s), Oral, Daily, Refills(s) 0, Blood glucose lisinopril 40 mg Tab: 40 mg = 1 tab(s), Oral, Daily, Refills(s) 0, High blood pressure metoclopramide 5 mg Tab: 120 EA, 0 Refill(s), TAKE 1 TABLET BY MOUTH BEFORE MEALS A (more content not included)... [facility] Comment on above: Result Comment: Elec tronically Signed By: Rambo Purcell MD\.br\Date and Time Signed: 04/02/25 13:14 EDT Other Comment: Payal fraser Attachment - attachment storage system not supported [id number] Can be viewed in source system Missing Attachment - attachment storage system not supported [id number] Can be viewed in source system Missing Attachment - attachment storage system not supported [id number] Can be viewed in source system Missing Attachment - attachment storage system not supported [id number] Can be viewed in source system Missing Attachment - attachment storage system not supported [id number] Can be viewed in source system Missing Attachment - attachment storage system not supported [id number] Can be viewed in source system Missing Attachment - attachment storage system not supported [id number] Can be viewed in source system Missing Attachment - attachment storage system not supported [id number] Can be viewed in source system Missing Attachment - attachment storage system not supported [id number] Can be viewed in source system Missing Attachment - attachment storage system not supported [id number] Can be viewed in source system 04-02-2025 Note Endoscopic Procedure Report - Other Patient: CONSTANTINO CARDOSO Age: 54 years Sex: Female : 1970 Associated Diagnoses: None Author: Rambo Purcell MD Pre-Procedure Procedure Date 04/02/2025 12:55:00 . Procedure Type: Esophagogastroduodenoscopy with biopsy, Dilation with Lopez. Procedure provider Performed by Rambo Purcell MD. Current history and physical Documented on chart. Informed Consent After discussing the rationale, risks and benefits, and alternatives to this procedure, the patient provided signed consent for the procedure. Pre-procedure diagnosis: Dysphagia . Medications Anticoagulant/antiplatelet None. ASA Classification: Class II. . Monitoring: See anesthesia record. . Anticoagulation use: Procedure The procedure was performed in the hospital. See anesthesia record for sedation given during procedure. The patient was positioned starting in the left lateral decubitus position and with safety measures. Endoscope type used was an adult-size, introduced orally, advanced to the 3rd portion of the duodenum. No difficulty was encountered during the procedure. Views were excellent. The patient tolerated the procedure well. Extent reached: Duodenum third portion Findings 1. Esophageal landmarks identified, slightly torturous esophagus. 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 Empiric dilation with Lopez 54 Croatian was done, no resistance, post dilation there was no mucosal disruption or wall defect 2. Mild atrophy in the mucosa in the antrum of the stomach, otherwise normal examined stomach. Random biopsies were taken to rule H. pylori 3. Normal examined duodenum Images Procedure images: Rec1_hd_video_2024____[id number]. jpg Rec1_hd_video___[id number]. jpg Rec1_hd_video____[id number]. jpg Rec1_hd_video____[id number]. jpg Rec1_hd_video__2__[id number]. jpg Rec1_hd_video____[id number]. jpg Rec1_hd_video__T12__[id number]. jpg . Post-Procedure Complications: none. Estimated blood loss: none. Specimens: sent to pathology. Devices/ implants: none left in place. Impression and Plan 1. Esophageal landmarks identified, slightly torturous esophagus. 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 Empiric dilation with Lopez 54 Croatian was done, no resistance, post dilation there was no mucosal disruption or wall defect 2. Mild atrophy in the mucosa in the antrum of the stomach, otherwise normal examined stomach. Random biopsies were taken to rule H. pylori 3. Normal examined duodenum Recommendations: -Resume previous diet -Resume home medications -Follow-up in GI clinic in GI clinic in 1-2 weeks once pathology is available [facility] Comment on above: Result Comment: Elec tronically Signed By: Binh BAKER, Rambo Dietrich\.br\Date and Time Signed: 04/02/25 12:57 EDT Other Comment: Payal fraser Attachment - attachment storage system not supported [id number] Can be viewed in source systemMissing Attachment - attachment storage system not supported [id number] Can be viewed [facility] Attachment - attachment storage system not supported [id number] Can be viewed in source systemMisscardinal [facility] Attachment - attachment storage system not supported [id number] Can be viewed in source systemMissing Attachment - attachment storage system not supported [id number] Can be viewed in source systemMisscardinal [facility] Attachment - attachment storage system not supported [id number] Can be viewed in source systemMissing Attachment - attachment storage system not supported [id number] Can be viewed in source system 04-02-2025 Note History and Physical Patient: CONSTANTINO CARDOSO Age: 54 years Sex: Female : 1970 Associated Diagnoses: None Author: Binh BAKER, Rambo Dietrich Preoperative Information Indication for procedure and diagnosis: Change in bowel habits, dysphagia Chief Complaint as above Review of Systems All systems reviewed, negative except as mentioned above Health Status Current medications: (Selected) Inpatient Medications Ordered Lactated Ringers IV Zari 1000 mL 1,000 mL: 1,000 mL, IV, 100 mL/hr, Routine, Start date 04/02/25 12:01:00 EDT, 10 hour(s), Total volume (mL): 1,000, 86.9 kg, 2.03, m2 Sodium Chloride 0.9% IV Zari 1000 mL 1,000 mL: 1,000 mL, IV, 20 mL/hr, Routine, Start date 04/02/25 6:39:00 EDT, 50 hour(s), Total volume (mL): 1,000, 86.9 kg, 2.03, m2 Prescriptions Prescribed Bentyl 10 mg Cap: 10 mg = 1 cap(s), Oral, QID, X 14 day(s), # 56 cap(s), Refills(s) 0, [id number] 170, cm, 03/27/25 10:23:00 EDT, Height/Length Dosing, 86.9, kg, 03/27/25 10:23:00 EDT, Weight Dosing Estrace 0.1 mg/g Cream: 1 gm, Vaginal, As Directed, 42.5 gm, Refill(s) 3, Apply pea-sized amount around urethra every night x 3 weeks, then 2 times weekly for maintenance, [facility]/pharmacy #[id number], 170, cm, 02/16/24 9:10:00 EDT, Height/Length Dosing, 81.7, kg, 02/16/24 9:10:00 EDT... Ibgard 90 mg oral delayed release capsule: 180 mg = 2 cap(s), Oral, BID, # 60 cap(s), Refills(s) 3, [id number], 170, cm, 03/27/25 10:23:00 EDT, Height/Length Dosing, 86.9, kg, 03/27/25 10:23:00 EDT, Weight Dosing Keppra 500 mg Tab: 500 mg = 1 tab(s), Oral, BID, # 60 tab(s), Refills(s) 0, [id number], 170.2, cm, 10/19/24 17:25:00 EST, Height/Length Dosing, 90.5, kg, 10/19/24 17:25:00 EST, Weight Dosing Metamucil 3.4 g/5.2 g oral powder: 3.4 gram, Oral, TID, PRN for constipation, # 1,042 gram, Refills(s) 0, [id number], 170, cm, 03/27/25 10:23:00 EDT, Height/Length Dosing, 86.9, kg, 03/27/25 10:23:00 EDT, Weight Dosing Multi Vitamins oral tablet: 1 tab(s), Oral, Daily, 30 tab(s), Refill(s) 0, [id number], 170.2, cm, 10/19/24 17:25:00 EST, Height/Length Dosing, 90.5, kg, 10/19/24 17:25:00 EST, Weight Dosing aspirin 81 mg Oral EC Tab: 81 mg = 1 tab(s), Oral, Daily, # 30 tab(s), Refills(s) 0, [id number], 170.2, cm, 10/19/24 17:25:00 EST, Height/Length Dosing, 90.5, kg, 10/19/24 17:25:00 EST, Weight Dosing cyanocobalamin 1000 mcg Tab: 1,000 mcg = 1 tab(s), Oral, Daily, # 30 tab(s), Refills(s) 0, [id number], 170.2, cm, 10/19/24 17:25:00 EST, Height/Length Dosing, 90.5, kg, 10/19/24 17:25:00 EST, Weight Dosing Documented Medications Documented Pantoprazole [address] Tab: 40 mg = 1 tab(s), Oral, Refills(s) 0, Control of stomach acid Tylenol 325 mg Tab: 325 mg = 1 tab(s), Oral, q4hr, PRN Pain, Refills(s) 0 acarbose 25 mg oral tablet: 25 mg = 1 tab(s), Oral, Daily, Refills(s) 0, Blood glucose lisinopril 40 mg Tab: 40 mg = 1 tab(s), Oral, Daily, Refills(s) 0, High blood pressure metoclopramide 5 mg Tab: 120 EA, 0 Refill(s), TAKE 1 TABLET BY MOUTH BEFORE MEALS AND AT BEDTIME, Refills(s) 0 metoprolol succinate 50 mg ER Tab: 50 mg = 1 tab(s), Oral, Daily, Refills(s) 0, High blood pressure ondansetron 4 mg Dis Tab: Refills(s) 0, Nausea/Vomiting sertraline 50 mg Tab: 50 mg = 1 tab(s), Oral, Daily, Refills(s) 0 sucralfate 1 g/10 mL Oral Susp 10 mL: 1 gm = 10 mL, Oral, QIDACHS, Refills(s) 0, Home Medications (17) Active acarbose 25 mg oral tablet 25 mg = 1 tab(s), Oral, Daily aspirin 81 mg Oral EC Tab 81 mg = 1 tab(s), Oral, Daily Bentyl 10 mg Cap 10 mg = 1 cap(s), Oral, QID cyanocobalamin 1000 mcg Tab 1,000 mcg = 1 tab(s), Oral, Daily Estrace 0.1 mg/g Cream 1 gm, Vaginal, As Directed Ibgard 90 mg oral delayed release capsule 180 mg = 2 cap(s), Oral, BID Keppra 500 mg Tab 500 mg = 1 tab(s), Oral, BID lisinopril 40 mg Tab 40 mg = 1 tab(s), Oral, Daily Metamucil 3.4 g/5.2 g oral powder 3.4 gram, PRN, Oral, TID metoclopramide 5 mg Tab metoprolol succinate 50 mg ER Tab 50 mg = 1 tab(s), Oral, Daily Multi Vitamins oral tablet 1 tab(s), Oral, Daily ondansetron 4 mg Dis Tab Pantoprazole [address] Tab 40 mg = 1 tab(s), Oral sertraline 50 mg Tab 50 mg = 1 tab(s), Oral, Daily sucralfate 1 g/10 mL Oral Susp 10 mL 1 gm = 10 mL, Oral, QIDACHS Tylenol 325 mg Tab 325 mg = 1 tab(s), PRN, Oral, q4hr Problem list: All Problems Heartburn / SNOMED CT 53326480 / Confirmed Gallstone / SNOMED CT 288660391 / Confirmed Kidney stones / SNOMED CT 494260535 / Confirmed Seizures / SNOMED CT 163980097 / Confirmed Migraines / SNOMED CT 00280792 / Confirmed Arthritis / SNOMED CT 9171896 / Confirmed Hernia, hiatal / SNOMED CT 061603904 / Confirmed High blood pressure / SNOMED CT 2718145570 / Confirmed BMI 26.0-26.9,adult / SNOMED CT 6589191821 / Confirmed Urinary urgency / SNOMED CT 248530023 / Confirmed Hx of urinary tract infection (more content not included)... [facility] Comment on above: Result Comment: Elec tronically Signed By: iBnh BAKER, Rambo Dietrich\.kenneth\Date and Time Signed: 04/02/25 12:48 EDT 03-18-2025 History of Present illness Narrative Pre-op Instructions For Out-Patient Endoscopy Surgery Medication [...] lotion, powder, jewelry, piercings, perfume, makeup, nail panamanian, hair accessories, or hair spray on the day of surgery. Wear loose comfortable clothing. Leave your valuables at home but bring a payment source for any after-surgery prescriptions you plan to fill at [facility]. Bring a storage case for any glasses/contacts. An adult who is responsible for you MUST remain in the hospital and drive you home and should be with you for the first 24 hours after surgery. The Day of Surgery: Arrive at [facility] Entrance at the time directed by your surgeon and check in at the desk. If you have a living will or healthcare power of commercial litigation attorney, please bring a copy. You will be taken to the pre-op holding area where you will be prepared for surgery. A physical assessment will be performed by a nurse practitioner or house fellow. Your IV will be started and you will meet your anesthesiologist. When you go to surgery, your family will be directed to the surgical waiting room, where the doctor should speak with them after your surgery. After surgery, you will be taken to the recovery area. When you are alert and stable, you will receive instructions and be prepared for discharge. Pt verbalized understanding, all questions answered. documented in this encounter [facility] 03-12-2025 Radiology Diagnostic study note [facility] Main [place] [address] [place] [address] CT Scan Report Signed Patient: Constantino Cardoso MR#: [id number] : 1970 Acct:[id number] Age/Sex: 54 / F ADM Date: 5 Loc: ER Room: Type: [facility] ER Attending Dr: Copies to: Kailey Mosley [...] Casey M.D. 03/12/2025 10:20 PM Dictation Location: [facility]-PC-29 Transcribed By: [facility] 03/12/252219 Dictated By: Surendra Casey MD 03/12/252213 Signed By: 03/12/252219 [facility] Work Phone: 03-12-2025 Radiology Diagnostic study note [facility] Main [place] [address] [place] [address] CT Scan Report Signed Patient: Constantino Cardoso MR#: [id number] : 1970 Acct:[id number] Age/Sex: 54 / F ADM Date: 5 Loc: ER Room: Type: [facility] ER Attending Dr: Copies to: Kailey Mosley [...] Casey M.D. 03/12/2025 10:12 PM Dictation Location: [facility]-PC-29 Transcribed By: ANDREA 03/12/252211 Dictated By: Surendra Casey MD 03/12/252199 Signed By: 03/12/252211 [facility] Work Phone: 02-28-2025 Note [facility] Note Reason for cardiology visit: Patient here for follow up on chest pain, dyspnea on exertion, palpitation, hypertension and hyperlipidemia HPI: 02/28/2025 Patient states that she has been doing well. She denies any chest discomfort at rest or with exertion. She reports occasional gastric pain due to worsening acid reflux. She denies exertional dyspnea, orthopnea or paroxysmal nocturnal dyspnea. She denies dizziness, [...] atraumatic, normocephalic. EYES: TOMI, EOMI. NECK: trachea midline (more content not included)... [facility] 02-16-2025 Hospital Discharge instructions Follow Up Care 02/16/2025 18:54:04 With:Rambo Purcell Address: [address] [place] [address], [facility] [address] [address] [phone] Business (1) When:02/19/2025 20:42:05 With:JUDI YOUSSEF Address: [facility] [place] [address] [phone] Business (1) When:Within 3 Day(s) [facility] 02-16-2025 Evaluation + Plan note Extrac [...] day(s), # 10 tab(s), Refills(s) 0, Pharmacy: [facility]/pharmacy #[id number], 170.2, cm, 02/16/25 18:59:00 EDT, [...] QID, # 280 mL, Refills(s) 0, Pharmacy: [facility]/pharmacy #[id number], 170.2, cm, 02/16/25 18:59:00 EDT, Height/Length Dosing, 85.2, kg, 02/16/25 18:59:00 EDT, Weight Dosing CBC w/ Auto Diff Comprehensive Metabolic Panel eGFR Extra Blue Tube Extra SST Tube Lipase Level XR Chest 2 Views [facility] 05-09-2025 NoteI was informed that the insurance declined treadmill nuclear stress test. Actually I wanted to order only routine treadmill stress test. Therefore I will switch the current order to only regular [facility]mill stress [facility] History of Present illness Narrative* EUN [...] Review Audit Reviewed by Sienna Murray MA (Collections Rep) on 01/07/25 at 1424 Medication Order Taking? Sig Documenting Provider Last Dose Status acarbose (Precose) 25 MG tablet [id number] Take 1 tablet (25 mg) by mouth in the morning and 1 tablet(25 mg) before bedtime. Kulwant Hodge MD Active aspirin 81 MG EC tablet [id number] Take 81 mg by mouth Daily Historical Provider, Active cholecalciferol (Vitamin D-3) 50 MCG (1999) capsule [id number] Take 1 capsule by mouth Daily Kalee Hodge MD Active dicyclomine (Bentyl) 20 MG tablet [id number] Take 1 tablet by mouth in the morning and 1 tablet in the evening and 1 tablet before bedtime. Kulwant Hodge MD Active hyoscyamine (Anaspaz,Levsin) 0.125 MG tablet [id number] Take 1 tablet by mouth every 6 (six) hours ifneeded Kulwant Hodge MD Active levETIRAcetam (Keppra) 750 MG tablet [id number] Take 1 tablet (750 mg) by mouth in the morning and 1 tablet (750 mg) before bedtime. EUN Ashraf Active lisinopril 20 MG tablet [id number] Take 20 mg by mouth Daily Kulwant Hodge MD Active metoprolol succinate XL (Toprol-XL) 50 MG 24 hr tablet [id number] Take 50 mg by mouth in the morning.Kulwant Hodge MD Active pantoprazole (ProtoNix) 40 MG EC tablet [id number] Take 40 mg by mouth in the morning. Take before meals. Kulwant Hodge MD Active sertraline (Zoloft) 50 MG tablet [id number] Take 50 mg by mouth in the [...] triceps, wrist extensors, wrist extensors, wrist flexor, medical collections representative strength 5/5. LUE Strength deltoid, biceps, triceps, wrist extensors, wrist extensors, wrist flexor, medical collections representative strength 5/5. RLE Strength illopsoas, quadriceps, tibialis [...] and all orders for this visit: Seizure ([facility]) Patient was evaluated at [facility] 10/20/2024 for stroke like symptoms manifested as [...] aura and without status migrainosus, not intractable ([facility]) She was also treated for migraine and [...] than a moderate stenosis. Testing review from [facility] 10/20/[address]: revealed no acute findings [...] symptoms Nikki Ayoub PA-C documented in this encounterMadison Ville [id number] NoteBellevue Office Cardiology Clinic Note Reason for [...] no lower extremity edema. (more content not included)...[facility]02-16-2025 NoteDischarge Summary Admission and Discharge Information Admitting [...] 20's but no seizure activity in the lcsi59szh and not on med tx. -See above [...] be reviewed and discussed with PCP or inclusion intern MD once the hospital hand method lasting machine operator is able to reach him/her.I [...] made to ensure accuracy, however, inadvertently computerized enterprise application architect mistakes may be present. Services Consulted Consult to Neurology - Ordered -- 10/19 (more content not included)...[facility]:Result Comment: Electronically Signed By: Guerline WALLS\.br\Date and Time Signed: 10/20/24 16:06 EST\.br\Electronically Co-Signed By: Eliezer Lorenzo DO\.br\Date and Time Co-Signed: 10/21/24 15:34 [id number] Hospital Discharge instructions Patient Education 10/20/2024 15:59:25 Seizure, Adult, Koqz-nf-Synr Seizure, Adult A seizure is a sudden [...] Follow these instructions at home: Medicines Take jsqv-xvv-wqjkqps and prescription medicines only as told by [...] the [place]., ask your local department of [employer] when you can drive. Get a lot [...] right away. Call your local emergency services ([address] [place] Do not wait to see [...] medicines are used to treat seizures. Take ekeu-vay-ejsoeaz and prescription medicines only astold by your doctor. This information is not intended to replace advice given to you by your health care provider. Make sure you discuss any questions you have with your health care provider. Document Revised: 02/25/2021 Document Reviewed: 02/27/2021 [employer] Patient Education 2023 [employer]. 10/20/2024 11:40:02 Vitamin B12 Deficiency, Pmmz-bk-Uyto Vitamin B12 Deficiency Vitamin B12 deficiency means [...] provider. Document Revised: 04/16/2022 Document Reviewed: 04/16/2022 [employer] Patient Education 2023 [employer]. 10/20/2024 11:40:02 Vitamin D Deficiency, Ozqc-ru-Oarb Vitamin D Deficiency Vitamin D deficiency is [...] dietitian for more information. General instructions Take zggw-whj-vippuzx and prescription medicines only as told by [...] provider. Document Revised: 2022 Document Reviewed: 2022 [employer] Patient Education 2023 [employer]. 10/20/2024 11:40:02 Vitamin D Test Vitamin D [...] including vitamins, herbs, eye drops, creams, and bdgp-stv-ldrzoba medicines. Any bleeding problems you have. Any [...] provider. Document Revised: 2022 Document Reviewed: 2022 [employer] Patient Education 2023 [employer]. 10/20/2024 11:40:02 Migraine Headache, Dxca-ob-Zezk Migraine Headache A migraine headache is a [...] Follow these instructions at home: Medicines Take greb-xyt-bxepylz and prescription medicines only as told by [...] for Headache and Migraine Patients (CHAMP): headachemigraine.org [place] Migraine Foundation: americanmigrainefoundation.org National Headache Foundation: headaches.org [...] provider. Document Revised: 04/18/2023 Document Reviewed: 04/18/2023 [employer] Patient Education 2023 [employer]. Follow Up Care 10/19/2024 17:04:31 With:JUDI YOUSSEF Address: [facility] [place] [address] [phone] Business (1) When:1 to 2 days With:Randy BAKER, REIGNALDO Baker Address: [place] [address] [place] [address]- When:2 to 4 weeks [facility] 02-15-2025 NotePatient Education - Text Gastroenterology [...] provider. Document Revised: 04/16/2022 Document Reviewed: 04/16/2022 [employer] Patient Education ? 2023 [employer] Neurology Seizure, Adult A seizure is a [...] liver problems. ??? Conditions (more content not included)...[facility] 10-20-2024 Evaluation + Plan noteExtracted from: [...] deep vein thrombosis (DVT) prophylaxis (Z79.899: Other penitentiary (current) drug therapy) Abdominal pain (R10.9: Unspecified abdominal pain) Extracted from: Title:Admission H & P Author:Yovanny WALLS enee Date:10/19/24 Awaiting [facility] rec for all dx. 1. [...] deep vein thrombosis (DVT) prophylaxis (Z79.899: Other penitentiary (current) drug therapy) -Lovenox, early ambulation Orders: [...] made to ensure accuracy, however, inadvertently computerized enterprise application architect mistakes may be present. Extracted from: Title:ED [...] Hospitalist for continued care NIH Stroke Scale [facility] 02-15-2025 NoteInterdisciplinary Note - PT PT Evaluation completed with an [facility] of . Pt was Independent for bed mobility and transfers. Pt was able to ambulate at Mod I level due to right bone pain from a previous fall on ice. Pt performing well this date. No further PT services neededClermont [facility] Hospital02-15-2025 NotePatient Education - Text Gastroenterology Vitamin [...] provider. Document Revised: 04/16/2022 Document Reviewed: 04/16/2022 [employer] Patient Education ? 2023 [employer]. Neurology Migraine Headache A migraine headache is [...] chest pain (nitrogl (more content not included)... [facility]02-[facility] NoteConsultation Note Chief Complaint stroke Reason [...] light touch on the right. Cerebellar exam: Qjnxpa-nt-czdu reveals no ataxia. Gait is deferred. The neurological exam was performed by a healthcare professional which was witnessed and supervisedby me via video telemedicine visit consented to by the patient or appropriate patient representative government relations. 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 eyes/medical collections representative release hand: Obeys both correctly = 0 [...] reviewed with the patien (more content not included)...[facility] HospitalComment on above:Result Comment: Electronically Signed By: Diana Stevens RN\.br\Date and Time Signed: 10/20/24 07:52 EST\.br\Electronically Co-Signed By: Rush Padilla MD\.br\Date and Time Co-Signed: 10/20/24 10:24 [id number] NoteHistory and Physical Chief Complaint To ED [...] one side over the other. Patient denies fever, chills, cough, sputum production, known COVID exposure, [...] both correctly = 0 Open and close eyes/medical collections representative release hand: Obeys both correctly = 0 [...] E9/L (10/19/24 17:06:00) RBC: 3.9 E12/L Low (10/19/24:06:00) HGB: 11.9 gm/dL Low (10/19/24:06:00) Hct: 34.6 % (10/19/24 17:06:00) MCV: 89.5 fL (10/19/24 17:06:00) MCH: 30.6 pg (10/19/24:06:00) MCHC: 34.2 gm/dL (10/19/24 17:06:00) RDW: 14.1 % (10/19/24 17:06:00) Platelet: 424 E9/L (10/19/24 17:06:00) MPV: 7.2 fL (10/19/24 17:06:00) Neutro Auto: 55 % (10/19/24 17:06:00) Lymph Auto: 33.3 % (10/19/24 17:06:00) Mchenry Auto: 7.2 % (10/19/24 17:06:00) Eos Auto: 3.9 % (10/19/24 17:06:00) Basophil Auto: 0.6 % (10/19/24 17:06:00) Neutro Absolute: 2.9 E9/L (10/19/24 17:06:00) Lymph Absolute: 1.8 E9/L (10/19/24 17:06:00) Mchenry Absolute: 0.4 E9/L (10/19/24 17:06:00) Eos Absolute: 0.2 E9/L (10/19/24 17:06:00) Basophil Absolute: 0 E9/L (10/19/24:06:00) PT: 10.7 second(s) (10/19/24:06:00) INR: 0.96 (10/19/24) PTT: 40.8 second(s) High (10/19/24:06:00) Glucose Lvl: 107 mg/dL (10/19/24:06:00) BUN: 22 mg/dL High (10/19/24) Creatinine: 0.8 mg/dL (10/19/24::) eGFR: 87 mL/min/1.73 m2 (10/19/24) BUN/Creat Ratio: 28 High (10/19/24) Sodium Lvl: 140 mmol/L (10/19/24::) Potassium Lvl: 3.4 mmol/L Low (10/19/24:) Chloride: 110 mmol/L (10/19/24) CO2: 24 mmol/L (10/19/24::) AGAP: 9 mEq/L (10/19/24::) Calcium Lvl: 8.9 mg/dL (10/19/24::) Alk Phos: 120 Int._Unit/L High (10/19/24:06:00) ALT: 11 Int._Unit/L (10/19/24:06:00) AST: 14 Int._Unit/L (10/19/24::) Total Protein: 6.3 gm/dL (10/19/24:06:00) Albumin Lvl: 3.9 gm/dL (10/19/24:06:00) Globulin: 2.4 gm/dL (10/19/24::00) A/G Ratio: 1.6 (10/19/24:06:00) Bili Total: 0.4 mg/dL (10/19/24:06:00) Magnesium: 1.9 mg/dL (10/19/24:06:00) Troponin HS: 10.8 pg/mL (02/14/25 17:06:00) Glucose Cap: 93 mg/dL (10/19/24 17:10:00) POC Device SN: [id number] (10/19/24 17:10:00) POC User ID: [id number] (10/19/24 17:10:00) POC Username: POC Userna (more content not included)...[facility]Comment on [facility]:Result Comment: Electronically Signed By: [...] 08/14/2019 HCT 31.2 (L) (more content not included)...[facility] 08-30-2024 History of Present illness Narrative* Bobbi [...] 3.4* 3.8 CL 104 106 105 CO2 BUN 9 9 5* CREATININE 0.7 0.7 [...] and confirmed. Miguel Wild MD * Sumeet Mayberry PT - 08/29/2024 10:11 AM EST Physical Therapy Facility/Department: [facility] RENAL//MED SURG Physical Therapy Initial Assessment [...] amount this morning. 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 She had x-ray KUB and was removed by general surgery in the ER. She has been started on section through NG tube and enema. Patient denies experiencing fever, chest pain, shortness of breath, cough, cold, headache, neurological symptoms, urinary symptoms, abnormal genital discharge/bleeding. 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 in 08/27 Mitral valve prolapse GERD Migraines and severe obeisty - s/p Heln-hu-T-bypass 2018 presents with a chief complaint of [...] amount this morning. 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 She had x-ray KUB and was [...] Problem: Intestinal obstruction (HCC) CT scan at [facility] -dilated large bowel with air-fluid level Transferred to [facility] -x-ray KUB: Nonobstructive bowel gas pattern, [...] Juan Dhaliwal MD Internal Medicine Resident, PGY-1 [facility]; [place], [place] 08/29/2024, 6:54 AM Associated attestation - [...] this chart was generated using voice recognition [employer] dictation software. Although every effort was made to ensure the accuracy of this automated enterprise application architect, some errors in enterprise application architect may have occurred. * Miguel Wild MD [...] infiltrate, which could represent pneumonia. Oliver Romero, DO 08/29/2024, 6:34 AM Attestation signed by Miguel Wild MD I personally evaluated the patient and directed the medical decision making with Resident after thephysical/radiologic exam and laboratory values were reviewed and confirmed. Labs stable, abd films OK. Consider trial liquids around tube. Miguel Wild MD [facility] Discharge instructions* Discharge Instructions* Sky Pearce [...] sent through Care Everywhere. * Bowel Obstruction (Cook Islander) documented in this encounterSov[facility] Hospital Discharge instructions* Discharge Instructions* Larisa Jean [...] if your caregiver approves them. Only take tbfm-amj-ixunhzb or prescription medicines for pain, discomfort, or [...] 08/22/2006 Document Revised: 02/20/2013 Document Reviewed: 12/20/2012 [facility] Patient Information 2013 [facility] Hospital[facility] .EGD DISCHARGE INSTRUCTIONS Activity: Rest today. [...] or neck pain documented in this encounterBon [facility] History of Present illness Narrative* Kulwant [...] 3 months (around 10/13/2024). documented in this encounterCenterpoint Medical CenterCnqcohkewx98-08-6205 History of Present illness Narrative* Kulwant Hodge [...] 3 weeks (around 07/11/2024). documented in this encounterCenterpoint Medical CenterIhjlrdgfps22-45-0974 NoteBellevue Office Cardiology Clinic Note Reason for [...] due to vasovagal r (more content not included)...[facility] 05-11-2024 [facility] Evaluation note* Author Jennie [facility] Authored April 26, 2024 9: 26am [...] twice or three times daily if needed. [facility] Work Phone: [phone] 130-172207-15-2024 NoteBellevue Office Cardiology Clinic Note Reason for [...] valve prolapse, and NSVT (nonsustained ventricular tachycardia) ([facility]). Surgical History She has a past [...] hiatal hernia and acid (more content not included)...[facility] 02-16-2024 Evaluation + Plan note Diagnostic Tests Pending * Urine Culture 02/16/24 [facility]12-21-2023 NoteHNO ID: [id number] Author: Ellis Mayberry DO Service: ? Author [...] August 25, 2023 TIME: 2:59 PM CSN: [id number][facility]12-[facility]-20[facility] NoteQ3 Patient Name: Constantino Cardoso Procedure Date: 08/25/2023 2:38 PM Date of : 1970 Admit Type: Outpatient Age: 53 Gender: Female Note Status: Finalized Attending MD: Marques Bradley MD, [id number] Procedure: Upper GI endoscopy Indications: Gastroparesis- for [...] the patient. Procedure Code(s): --- Professional --- 18930 Diagnosis Code(s): --- Professional --- K44.9 Z98.890 CPT copyright 2020 [place] [employer]. All rights reserved. Attending Participation: I personally performed the entire procedure. Scope In: 2:59:10 PM Scope Out: 3:37:20 PM MD Marques Rainey MD 08/25/2023 3:41:00 PM This report has been signed electronically by Marques Bradley MD Number of Addenda: 0 Note Initiated On: 08/25/2023 2:38 [facility]11-24-2023 Note HNO ID: [id number] Author: Evelyn Black RN Service: ? Author Type: Registered Nurse Type: Progress Notes Filed: 07/29/2023 11:18 AM Note Text: [facility]11-24-2023 History of Present illness Narrative* Evelyn Black RN - 07/29/2023 11:17 AM EST e documented in this encounterSt. [facility] Instructions* Patient Instructions* Americo Montalvo RD - [...] High Protein, Atkins, Boost Glucose Control, Owyn, [place] Breakfast Essentials Light Start mixed with Fairlife [...] calories, no carbonation, no caffeine. Protein juarez (gafwnyf6r, Isopure, Gatorade protein), electrolyte drinks (Gatorade or Powerade zero, sugar free liquid IV or Drip Drop), sugar free jello and sugarfree popsicles are also acceptable. Nutrition Monitoring & Evaluation: increase PO intake >75% of estimated needs, weight check and patient update Need for Follow up: based on surgery status documented in this encounterSt. [facility]11-17-2023 NoteHNO ID: [id number] Author: Americo Montalvo RD Service: ? Author Type: Registered Dietitian Type: Progress Notes Filed: 07/22/2023 4:06 PM Note Text: [facility] Nutrition Therapy: Virtual Consult - Initial Assessment I have communicated my name and active licensure. The patient?s identity and physical location were verified at the time of this visit. Either the patient or their legal representative government relations has been informed of the risks and [...] High Protein, Atkins, Boost Glucose Control, Owyn, [place] Breakfast Essentials Light Start mixed with Fairlife fat free or 1% milk. -Check www.bariatricfusion.com or www.[employer].com for additional options. Take small bites, eat slowly, chew food well, and always eat protein first. Separate eating and drinking by 30 min before and after. Aim for >64 oz water/day. Take small sips and avoid straws. Liquids should be sugar-free, no calories, no carbonation, no caffeine. Protein juarez (lbfllmd5h, Isopure, Gatorade protein), electrolyte drinks (Gatorade or [...] active for work on her feet as [employer], however no regular exercise at this time due to not feeling well enough and little energy. [place] body weight: 159 lbs. 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 Recommendation was a GPOEM. Will consult with surgeon next week regarding next POC for pt. Pt VU. documented in this encounterSt[facility] History of Present illness Narrative* Americo Montalvo RD - 07/22/2023 1:[address] [facility] Nutrition Therapy: Virtual Consult - Initial Assessment I have communicated my name and active licensure. The patient s identity and physical location wereverified at the time of this visit. Either the patient or their legal representative government relations has been informed of the risks and [...] High Protein, Atkins, Boost Glucose Control, Owyn, [place] Breakfast Essentials Light Start mixed with Fairlife fat free or 1% milk. -Check www.bariatricfusion.com or www.Central Logic.com for additional options. Take small bites, eat slowly, chew food well, and always eat protein first. Separate eating and drinking by 30 min before and after. Aim for >64 oz water/day. Take small sips and avoid straws. Liquids should be sugar-free, no calories, no carbonation, no caffeine. 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 [place] body weight: 159 lbs. 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 [facility]11-[facility]-2023 NoteQ3 Patient Name: Constantino Cardoso Procedure [...] the patient. Procedure Code(s): --- Professional --- 89717 Diagnosis Code(s): --- Professional --- K44.9 K31.89 Z98.890 R10.13 CPT copyright 2020 [employer]. All rights reserved. Attending Participation: I personally performed the entire procedure. Scope In: 10:40:19 AM Scope Out: 10:50:37 AM MD Marques Rainey MD 07/14/2023 10:53:09 AM This report has been signed electronically by Marques Bradley MD Number of Addenda: 0 Note Initiated On: 07/14/2023 10:24 [facility]11-09-2023 Nurse Note* Mónica Spaulding RN - 07/14/2023 [...] (RECOMMENDATION): None Electronically Signed By: Mónica Spaulding WASTE WATER OPERATOR * Candace Jaramillo RN - 07/14/2023 8:33 [...] RN In Department: GASTROENTEROLOGY documented in this encounterSt. Anthony'S Hospital11-08-2023 NoteHNO ID: [id number] Author: Arcelia Shaw, PhD Service: ? Author Type: Physician Type: Progress Notes Filed: 07/19/2023 10:07 AM Note Text: [facility] BARIATRIC SURGERY BEHAVIORAL HEALTH EVALUATION DATE OF SERVICE: July 13, 2023 TIME OF SERVICE: 2:10 PM-3:29 PM COST CENTER: [facility] CPT CODE: - 09346 Brief Emotional/Behavioral Assessment with scoring/documentation - [id number] Virtual Psych Diagnostic Eval BILLING CODE: ENDO PSYL MAIN 67823/Marco DATE OF FIRST SERVICE THIS CYCLE: July 13, 2023 SESSION #: 1 BMI Surgical Pathway Visit type: Bariatric Surgeon Visit I have communicated my name and active licensure. The patient's identity and physical location were verified at the time of this visit. Either the patient or their legal representative government relations has been informed of the risks and benefits of -- and alternatives to -- treatment through a remote evaluation and consents to proceed with the evaluation remotely. Zoom for [facility] IDENTIFYING INFORMATION: Ms. Constantino Cardoso [...] other people who have undergone the procedure (residential Specific areas of understanding that should be [...] during the binge episod (more content not included)...[facility]09-22-2023 Miscellaneous Notes* Telephone Encounter - Evelyn Black [...] Pt agreed with plan. documented in this encounterSt. Anthony'S Hospital09-21-2023 NoteHNO ID: [id number] Author: Nabil Bell RT(R) Service: Nuclear Medicine [...] 715 PATIENT DISCHARGED TO: Ambulatory patient, left PR department area. A Diagnostic radioactive procedure has taken place, with no further precautions necessary other than routine body substance precautions. More information regarding radiation safety can be found using this link: [email or web address] SIGNATURE: RT Charmaine(R) PATIENT NAME: Constantino Cardoso DATE: May 26, 2023 TIME: 7:17 AM PAGER/CONTACT #:[facility]09-20-2023 NoteHNO ID: [id number] Author: Pedro Gonzalez LPN Service: ? Author Type: LICENSED NURSE Type: Progress Notes Filed: 05/25/2023 4:15 PM Note Text: Name: Constantino Cardoso [facility]#: [id number] Date: 05/25/2023 ESOPHAGEAL MANOMETRY TEST Indication: Nausea [...] the test without difficulty. .[facility] History of Present illness Narrative* Pedro Gonzalez LPN - 05/25/2023 3:55 PM EDT Name: Constantino Cardoso [facility]#: [id number] Date: 05/25/2023 ESOPHAGEAL MANOMETRY TEST Indication: Nausea [...] difficulty. .Pedro Gonzalez LPN documented in this encounterSt. Anthony'S Hospital09-11-2023 Miscellaneous Notes* Telephone Encounter - Evelyn [...] after a gastric bypass. documented in this encounterSt. Anthony'S Hospital09-01-2023 NoteHNO ID: [id number] Author: Marques Bradley MD Service: ? Author [...] for internal providers or letter via the [employer] Postal Service for external providers. Chief Complaint: [...] Marques Bradley MD Date: 05/12/2023 Time: 8:15 [facility]08-28-2023 Miscellaneous Notes* Telephone Encounter - Evelyn Black RN - 05/02/2023 9:12 AM EDT BMI SPECIALTY CARE COORDINATION TELEPHONE ENCOUNTER Chief complaint & duration dysphagia. Type of procedure: hernia repair hiatal with Dr. MORTENSEN in [place] February of 2019. Sending OP notes Nursing assessment (subjective/objective) . pain in chest area and getting worse Went to [place] ED March 2023 who told her she needed a stent in her heart..but her c/o were difficulty swallowing and sent pt home and referred her to [facility] and was there in the hospital for [...] appt after records obtained documented in this encounterSt. Anthony'S Hospital08-22-2023 Miscellaneous Notes* Telephone Encounter - Evelyn Black RN - 04/26/2023 2:00 PM EDT [facility] SPECIALTY CARE COORDINATION TELEPHONE ENCOUNTER Second attempt to contact this pt. Pt has upcoming information, and unable to complete any chart prep, history, symptoms, testing etc. LVM and call back number. documented in this encounterSt. Anthony'S Hospital08-17-2023 Evaluation note* Encounter Date Diagnosis Assessment Notes Treatment Notes Treatment Clinical Notes Apr, Esophageal dysmotility (ICD-10 - K22.4) Apr, Esophageal spasm (ICD-10 - K22.4) Apr, Nausea & vomiting (ICD-10 - R11.2) Ashleynet reports that she still has nausea but no vomiting Patient reports that she is to see Dr. Strong at [facility] Patient is to start dicyclomine 20 mg 4 times daily sent to pharm today RTO 6 weeks Apr, Dysphagia (ICD-10 - R13.10) [employer] Other 08-14-2023 Miscellaneous Notes* Telephone Encounter - Evelyn Black RN - 04/18/2023 2:13 PM EDT BMI SPECIALTY CARE COORDINATION TELEPHONE ENCOUNTER Contacted pt regarding a referral from Dr Martinez's office. LVM and call back number. documented in this encounterSt. Anthony'S Hospital08-03-2023 Miscellaneous Notes* Telephone Encounter - Yancy Lopez - 04/07/2023 1:15 PM EDT Referral rec'd documented in this encounterSt. Anthony'S Hospital06-17-2023 Evaluation + Plan note Extracted from: [...] pain, # 20 tab(s), Refills(s) 0, Pharmacy: [facility]/pharmacy #[id number], 170, cm, 02/19/23 0:56:00 EDT, Height/Length Dosing, 90.2, kg, 02/19/23 0:56:00 EDT, Weight Dosing XR Elbow 3+ Views Right XR Wrist 3+ Views Right [facility]06-17-2023 Hospital Discharge instructions Patient Education 02/19/2023 [...] are safe for you. General instructions Take czxb-krb-ejlnekz and prescription medicines only as told by [...] provider. Document Revised: 12/29/2020 Document Reviewed: 12/29/2020 [employer] Patient Education 2022 [employer]. Follow Up Care 02/19/2023 00:51:16 With:JUDI YOUSSEF Address: [address] [place] [phone] Business (1) When:02/22/2023 Comments:Take the pain medication as prescribed as needed for pain. Please follow-up with your primary care doctor in the next 2 to 3 days for further evaluation management. Please return to the ED for any new or worsening symptoms or [facility]08-10-2022 Hospital Discharge instructions Patient Education 04/14/2022 [...] water added (diluted fruit juice). Eat bland, egje-yl-fpggut foods in small amounts as you are able. These foods include bananas, applesauce, rice, lean meats, toast, and crackers. Avoid fluids that contain a lot of sugar or caffeine, such as energy drinks, sports drinks, and soda. Avoid alcohol. Avoid spicy or fatty foods. General instructions Take cgdw-gbu-dtecisr and prescription medicines only as told by your health care provider. Drink enough fluid to keep your urine pale yellow. Wash your hands often using soap and water. If soap and water are not available, use hand university internship. Make sure that all people in your [...] eating and drinking to prevent dehydration. Take iekn-hah-fpaquqs and prescription medicines only as told by [...] 08/22/2006 Document Revised: 12/14/2019 Document Reviewed: 01/30/2019 [employer] Patient Education 2020 Prism [employer]. Follow Up Care 01/28/2022 13:58:23 With:Monique Marquez CNP Address: When:3 months [facility] 05-26-2022 Hospital Discharge [...] drinks. ?Tomatoes and foods made with tomatoes. ?Sykeston or spicy foods. ?Chocolate and peppermint. Do not drink alcohol. General instructions Take kymj-jbd-xtgmqxo and prescription medicines only as told by [...] 11/11/2004 Document Revised: 12/18/2018 Document Reviewed: 12/18/2018 [employer] Patient Education 2020 [employer] Follow Up Care 01/13/2022 12:36:01 With:Monique Marquez CNP Address: When:3 months [facility] 05-09-2022 Hospital Discharge instructions Patient Education 01/11/2022 09:56:58 Endoscopy, Care After Procedure [facility] Endoscopy Care After Procedure Please read the instructions outlined below and refer to this sheet in the next few weeks. These discharge instructions provide you with general information on caring [facility] Your doctor may also give [...] blood. Document Released: 04/05/2005 Document Re-Released: 02/13/2007 [employer]IDE[employer] Patient Information 2010 [employer]. 01/11/2022 09:56:58 Pearce's Esophagus Pearce's Esophagus Pearce's [...] drinks. ?Tomatoes and foods made with tomatoes. ?Sykeston or spicy foods. ?Chocolate and peppermint. Do not drink alcohol. General instructions Take bbms-zcv-tateacp and prescription medicines only as told by [...] 11/11/2004 Document Revised: 12/18/2018 Document Reviewed: 12/18/2018 [employer] Patient Education 2020 Prism Digital. Follow Up Care 12/03/2021 15:32:26 With:Anai FORBES Address: [address] [place] [address] Business (1) When:1 to 2 weeks Comments:Call for any problems. [facility]03-30-2022 Hospital Discharge instructions Follow Up Care 12/02/2021 10:32:32 With:JHOANA MELGOZA PA-C, URL Address: [address] [place] [address] When: Unknown [facility] Evaluation + Plan note Future Appointments Appointment Date:01/11/2022 09:40:00 AM Scheduled Provider: Location:[facility] Surgical Services Appointment Type:Surgery FT [facility] Evaluation + Plan note Future Appointments Appointment Date:04/14/2022 03:00:00 PM Scheduled Provider:Monique Marquez CNP Location:[facility]estive [facility] Appointment Type:[facility] Follow Up Future Scheduled Tests Radiology* NM Gastric Emptying Study 01/28/22 [facility] Evaluation + Plan note Future Appointments Appointment Date:04/14/2022 03:00:00 PM Scheduled Provider:Monique Marquez CNP Location:[facility] Appointment Type:[facility] Follow Up [facility] Future Appointments Appointment Date:04/20/2022 12:00:00 PM Scheduled Provider: Location:.[facility] Appointment Type:US Abdominal/Pelvis () Appointment Date:06/02/2022 09:45:00 AM Scheduled Provider:Anai FORBES MD Location:[facility] Appointment Type:[facility] Follow Up Future Scheduled Tests Laboratory* Fecal WBC Lactoferrin 04/14/22 * Giardia lamblia, Direct Detection EIA 04/14/22 * O & P Exam, Routine 04/14/22 * Clostridium difficile by PCR 04/14/22 * Enteric Panel by PCR 04/14/22 * CBC w/ Auto Diff 04/14/22 * Comprehensive Metabolic Panel 04/14/22 Radiology* US Abdomen Complete 04/20/22 [facility] Evaluation + Plan note Future Appointments Appointment Date:06/02/2022 09:45:00 AM Scheduled Provider:Anai FORBES MD Location:[facility] Dig[facility]ive [facility] Appointment Type:[facility] Follow Up Diagnostic Tests Pending * O & P Exam, Routine 04/29/22 * Giardia lamblia, Direct Detection EIA 04/29/22 [facility] Future Appointments Appointment Date:04/02/2025 12:30:00 PM Scheduled Provider: Location:[facility] Surgical Services Appointment Type:Surgery FT Appointment Date:04/08/2025 11:30:00 AM Scheduled Provider:Flavio JUAREZ MD Location:[facility] Appointment Type:URO Office Visit Future Scheduled Tests Laboratory* Celiac Disease Comprehensive 03/27/25 Radiology* XR Adult Swallowing Function w/ Video: Evaluate Pt, Develop a Plan of Care & Implement Plan 03/27/25 [facility] Evaluation + Plan note Future Appointments Appointment Date:04/09/2025 09:00:00 AM Scheduled Provider: [facility] Type:XR MBS Adult (FT) Appointment Date:05/10/2025 09:15:00 AM Scheduled Provider:Rambo Purcell MD Location:[facility] Appointment Type:BAD Follow Up Appointment Date:10/14/2025 10:45:00 AM Scheduled Provider:Flavio JUAREZ MD Location:[facility] Appointment Type:URO Office Visit Future Scheduled Tests Laboratory* Celiac Disease Comprehensive 03/27/25 Radiology* XR Adult Swallowing Function w/ Video: Evaluate Pt, Develop a Plan of Care & Implement Plan 04/09/[address] [facility] evaluation + Plan note Future Appointments Appointment Date:06/06/2025 10:00:00 AM Scheduled Provider: Location:[facility] Surgical Services Appointment Type:Urology CALL PAT FT Appointment Date:06/11/2025 09:30:00 AM Scheduled Provider: Location:[facility] Surgical Services Appointment Type:Urology FT Appointment Date:10/14/2025 10:45:00 AM Scheduled Provider:Flavio JUAREZ MD Location:[facility] Appointment Type:URO Office Visit Future Scheduled Tests Laboratory* Celiac Disease Comprehensive 03/27/25 [facility] Evaluation noteNo assessment information [facility] Work Phone: Evaluation noteNo InformationNosouthpointe hospital [employer] Other Evaluation note* Diagnosis Nausea- Primary Nausea alone Dysphagia, unspecified type documented in this encounter [facility] note* Diagnosis Nausea Nausea alone documented in this encounter [facility] note* Diagnosis Dysphagia, unspecified type Gastroparesis History of Pricilla fundoplication Personal history of surgery to other organs [facility] encounter [facility]* Diagnosis Gastroparesis- Primary Malnutrition of moderate degree (HCC) Malnutrition of moderate degree Gastro-esophageal reflux disease without esophagitis Esophageal reflux Overweight (BMI 25.0-29.9) Overweight Dietary counseling and surveillance Dietary surveillance and counseling documented in this encounter [facility] note* Diagnosis Gastroparesis- Primary documented in this encounter [facility]* Diagnosis Onset Date Resolution Status Abdominal adhesions acute Dysphagia acute Small bowel obstruction pete melara [facility] Work Phone: Evaluation note* Diagnosis Hypoglycemia- Primary Hypoglycemia, unspecified Encounter for dietary consultation documented in this encounter [facility] Healthcare[facility] note* Diagnosis Hypoglycemia Hypoglycemia, unspecified documented in this encounter [facility] HealthcareEvaluation note* Diagnosis Other dysphagia- Primary Other dysphagia [facility] note* Diagnosis Ileus (HCC)- Primary Paralytic ileus Ileus (HCC) Paralytic ileus Generalized abdominal pain Abdominal pain, generalized Hypokalemia Hypopotassemia Primary hypertension Unspecified essential hypertension Gastroesophageal reflux disease with esophagitis without hemorrhage Major depressive disorder Major depressive disorder, single episode, unspecified Hypokalemia Hypopotassemia Generalized abdominal pain Abdominal pain, generalized documented [facility] this [facility] note* Diagnosis Seizure (CMS/HCC)- Primary Other convulsions History of obstructive sleep apnea Migraine without aura and without status migrainosus, not intractable (CMS/HCC) documented in this encounter [facility] HealthcareEvaluation note* Diagnosis Seizure (CMS/HCC)- Primary Other convulsions History of obstructive sleep apnea Migraine without aura and without status migrainosus, not intractable (CMS/HCC) Dizziness Dizziness and giddiness documented in this encounter [facility] HealthcareHistory and physical note Author Jennie Ayon [facility] May 11, 2024 10:16am Note Date/Time May 11, 2024 10:16am [facility] [address] [place] [address] Gastroenterology H&P Signed Patient: Constantino Cardoso MR#: [id number] : 1970 Acct:[id number] Age/Sex: 53 / F Adm Date: 4 Loc: Room: Type: [facility] Attending Dr: Jennie Ayon MD Copies to: MD Judi Kamara, REJI~ Date of Service: 05/11/2024 HISTORY & PHYSICAL: [...] signed by Jennie Ayon MD> 05/11/24 1016 [facility] Work Phone: History general Narrative - Reported* Type Description Date Medical History mitral valve prolapse Medical History gallstones Medical History Acid reflux Medical History Hiatal Hernia Medical History headache Surgical History hysterectomy Surgical History cholecystectomy Surgical History hiatal hernia repair Hospitalization History see above Hospitalization History kindey infections hospit alized x3 [employer] Other Hospital course Narrative No data available for this section [facility] Discharge instructions No data available for this section [facility] Additional Instructions Follow-up with your primary care doctor Return to ED if develop worsening [facility] Work Phone: Hospital Discharge instructions Additional Instructions If your symptoms return/worsen or you develop any further concerns or symptoms please see your doctor or return to the emergency department immediately. Please be sure to continue follow-up with the bag turner and with your scheduled EGD and further testing.[facility] Work Phone: Hospital Discharge instructions Additional [...] problems. -Follow up with PCP. -Office number [phone]. [facility] Work Phone: Hospital Discharge instructions Additional Instructions Take antibiotic as instructed until gone for your urinary tract infection You should eat small frequent meals Avoid, hot, fried foods. Avoid any caffeinated beverages Protonix daily Follow-up with your GI specialist call tomorrow for your appointment Please return here if any problems persist or [facility]Ad[facility] Work Phone: Progress note No data available for this section [facility] (n[facility]ative)* Diagnostic Procedure Only (Routine) - Authorized Specialty Diagnoses / Procedures Referred By Eileen mueller Referred To Contact MOLECULAR & FUNCTIONAL IMAGING Diagnoses Nausea Procedures NM GASTRIC EMPTYING SOLID GASTRIC EMPTYING STUDY Marques Bradley MD [address] [place] [address] Molecular & Functional Imaging [address] [place] [address] Referral ID Status Reason Start Date Expiration Date Visits Requested Visits Authorized [id number] Authorized Auto-Generat ed Referral 05/16/2023 06/14/2024 1 1 * Outpatient Procedure (Routine) - Authorized Specialty Diagnoses / Procedures [facility] Referred To Contact [facility] Diagnoses Nausea Procedures MANOMETRY ESOPHAGEAL ESOPHAGEAL MOTILITY STUDY W/INTERP&RPT Marques Bardley MD [address] [place] [address] [address] Referral ID Status Reason Start Date Expiration Date Visits Requested Visits Authorized [id number] Authorized Auto-Generat ed Referral 05/16/2023 05/16/2024 1 1 [facility] for referral (narrative)* Outpatient Procedure (Routine) - Closed Specialty Diagnoses / Procedures Referred By Contac t Referred To Contact [facility] Diagnoses Dysphagia, unspecified type Gastroparesis History of Pricilla fundoplication Procedures EGD - THERAPEUTIC, EUS, OR TUBE INTERVENTIONS ESOPHAGOGASTRODUODENOSCOPY TRANSORAL DIAGNOSTIC STOMACH SURGERY PROCEDURE UNLISTED Marques Bradley MD [address] [place] [address] [facility] Disease [address] [address] Referral ID Status Reason Start Date Expiration Date V isits Requested Visits Authorized [id number] Closed Auto-Generate d Referral 05/27/2023 05/27/2024 1 1 [facility] Health for referral (narrative)* Outpatient Procedure (Routine) - Authorized Specialty Diagnoses / Procedures Referred By Contac t Referred To Contact [facility] Diagnoses Gastroparesis Procedures EGD - THERAPEUTIC, EUS, OR TUBE INTERVENTIONS ESOPHAGOGASTRODUODENOSC OPY TRANSORAL DIAGNOSTIC STOMACH SURGERY PROCEDURE UNLISTED Marques Bradley MD [address] [place] [address] [facility] [address] [place] [address] Referral ID Status Reason Start Date Expiration Date Visits Requested Visits Authorized [id number] Authorized Auto-Generat ed Referral 3 07/29/2024 1 1 [facility] for referral (narrative)No reason for referral [facility] Phone: Reason for visit Narrative* Outpatient Procedure (Routine) - Closed Specialty Diagnoses / Procedures Referred By Contac t Referred To Contact [facility] Diagnoses Dysphagia, unspecified type Gastroparesis History of Pricilla fundoplication Procedures EGD - THERAPEUTIC, EUS, OR TUBE INTERVENTIONS ESOPHAGOGASTRODUODENOSCOPY TRANSORAL DIAGNOSTIC STOMACH SURGERY PROCEDURE UNLISTED Marques Bradley MD [address] [place] [address] [facility] [address] [place] [address] Referral ID Status Reason Start Date Expiration Date V isits Requested Visits Authorized [id number] Closed Auto-Generate d Referral 05/27/2023 05/27/[address] [facility] Summary Purpose Family History No Family [...] Advance Directives No November 23, 018 10:23am Date Activated Date Inactivated Comments 08/28/2024 3:16 PM Date Activated Date Inactivated Comments 08/28/2024 3:16 PM 08/30/2024 6:26 PM Hospital Course Note MR#: [id number] [facility] Pt. Name: Constantino Cardoso Admitted: 08/13/2019 [...] 49-year-old female, who was transferred to [facility] from [facility] with acute abdominal pain. The pain has started on Tuesday while at work. 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 The pain feels similar to when she was here in April during her stay. During that time, she was told there was nothing left for Dr. Mortensen to do and she has been following up with GI specialist in [place]. She is actually due to have an [...] Date Unknown December 18, 2024 8:3 4am Chief Complaint Admit Date Unknown December 18, 2024 8:3 4am cp/back pain March 12, 2025 8:04p m Reason for Referral Specialty Diagnoses / Procedures Referred By Eileen mueller Referred To Contact Radiology Diagnoses Other dysphagia Procedures FL MODIFIED BARIUM SWALLOW W VIDEO Justin Lucero MD [address] [facility] [address] [place] [address] Referral ID Status Reason Start Date Expiration Date Visits Re quested Visits Authorized [id number] Open 08/17/2024 08/17/2025 1 1 Additional Source Comments INFORMATION SOURCE (unrecogn ized section and content) DATE CREATED AUTHOR 06/03/2020 [facility] DATE CREATED AUTHOR AUTHOR'S ORGANIZ ATION 01/17/2023 [facility] DATE CREATED AUTHOR AUTHOR'S ORGANIZ ATION 04/02/2023 [facility] DATE CREATED AUTHOR AUTHOR'S ORGANIZ ATION 08/26/2023 [facility] DATE CREATED AUTHOR AUTHOR'S ORGANIZ ATION 12/03/2023 [facility] DATE CREATED AUTHOR AUTHOR'S ORGANIZ ATION 02/17/2024 [facility] DATE CREATED AUTHOR AUTHOR'S ORGANIZ ATION 02/19/2024 [facility] DATE CREATED AUTHOR AUTHOR'S ORGANIZ ATION 10/21/2024 [facility] DATE CREATED AUTHOR AUTHOR'S ORGANIZ ATION 10/22/2024 [facility] DATE CREATED AUTHOR AUTHOR'S ORGANIZ ATION 10/29/2024 [facility] DATE CREATED AUTHOR AUTHOR'S ORGANIZ ATION 01/10/2025 [facility] DATE CREATED AUTHOR AUTHOR'S ORGANIZ ATION 02/18/2025 [facility] DATE CREATED AUTHOR AUTHOR'S ORGANIZ ATION 02/27/2025 [facility] DATE CREATED AUTHOR AUTHOR'S ORGANIZ ATION 03/01/2025 [facility] DATE CREATED AUTHOR AUTHOR'S ORGANIZ ATION 03/25/2025 [facility] DATE CREATED AUTHOR AUTHOR'S ORGANIZ ATION 04/19/2025 [facility] DATE CREATED AUTHOR AUTHOR'S ORGANIZ ATION 04/20/2025 [facility] DATE CREATED AUTHOR AUTHOR'S ORGANIZ ATION 05/22/2025 [facility] DATE CREATED AUTHOR AUTHOR'S ORGANIZ ATION 06/08/2025 [facility] DATE CREATED AUTHOR AUTHOR'S ORGANIZ ATION 06/13/2025 [facility] Care Team (unrecognized sect ion and content) Team Status: Active Member Role Status Dates DONI Stovall Primary Care Provider Active Team Status: Inactive Member Role Status Dates Nicanor Perez MD Attending Provider Active Start : December 18, 2024 End: December 18, 2024 Team Status: Inactive Member Role Status Dates Kailey Mosley APRN Emergency Provider Active Start: March 12, 2025 End: March 12, 2025 DONI Stovall Primary Care Provider Active Start: March 12, 2025 End: March 12, 2025 Team Status: Active Member Role Status Dates [...] Inactive Member Role Status Dates Judi Youssef [employer] Primary Care Provider Active Start: May 11, 2024 End: May 11, 2024 Jennie Ayon MD Attending Provider Active Start: May 11, 2024 End: May 11, 2024 Team Status: Active Member Role Status Dates Judi Youssef [employer] Primary Care Provider Active Start: May 11, [...] Inactive Member Role Status Dates Judi Youssef [employer] Primary Care Provider Active Conner Griffith DO Emergency Provider Active Team Status: Inactive Member Role Status Dates Jennie Ayon MD Attending Provider Active Judi Youssef NP-C Primary Care Provider Active Team Status: Inactive Member Role Status Dates Judi Youssef [employer] Primary Care Provider Active Pete Thakkar DO Emergency Provider Active Paint Laboratory Technician Relationship Specialty Start Date End Date Joel Alejandra PCP - General Family Medicine 04/26/18 Rafa Rangel [address] [place] [phone] Referring General Surgery 04/26/18 Paint Laboratory Technician Relationship Specialty Start Date End Date Ny Joel Onel PCP - General Family Medicine 04/26/18 Rafa Rangel [address] [place] [phone] Referring General Surgery 04/26/18 Paint Laboratory Technician Relationship Specialty Start Date End Date Joel Alejandra PCP - General Family Medicine 04/26/18 Rafa Rangel [address] [place] [phone] Referring General Surgery 04/26/18 Paint Laboratory Technician Relationship Specialty Start Date End Date DomenicoJoel blanco PCP - General Family Medicine 04/26/18 Rafa Rangel [facility] [address] [place] [address] Referring General Surgery 04/26/18 Paint Laboratory Technician Relationship Specialty Start Date End Date Joel Alejandra PCP - General Family Medicine 04/26/18 Rafa Rangel [address] [place], [place] [address] [place] [address] Referring General Surgery 04/26/18 Paint Laboratory Technician Relationship Specialty Start Date End Date DomenicoJoel blanco PCP - General Family Medicine 04/26/18 Rafa Rangel [address] [place] [phone] Referring General Surgery 04/26/18 Paint Laboratory Technician Relationship Specialty Start Date End Date DomenicoJoel blanco Onel PCP - General Family Medicine 04/26/18 Rafa Rangel [address] [facility] [address] [place] [address] Referring General Surgery 04/26/18 Paint Laboratory Technician Relationship Specialty Start Date End Date DomenicoJoel blanco Onel PCP - General Family Medicine 04/26/18 Rafa Rangel [address] [facility] [address] [place] [address] Referring General Surgery 04/26/18 Paint Laboratory Technician Relationship Specialty Start Date End Date Joel Alejandra PCP - General Family Medicine 04/26/18 Rafa Rangel [address] [facility] [address] [place] [address] Referring General Surgery 04/26/18 Paint Laboratory Technician Relationship Specialty Start Date End Date Joel Alejandra PCP - General Family Medicine 04/26/18 Rafa Rangel [address] [facility] [address] [place] [address] Referring General Surgery 04/26/18 Paint Laboratory Technician Relationship Specialty Start Date End Date Joel Alejandra PCP - General Family Medicine 04/26/18 Rafa Rangel [address] [place] [phone] Referring General Surgery 04/26/18 Paint Laboratory Technician Relationship Specialty Start Date End Date Unallocated, Miracle Jesus MD Count includes the [facility] [place] [address] PCP - General 04/25/23 Judi Yousesf MD [address] [place] [address] Referring Physician Family Medicine 04/25/23 Paint Laboratory Technician Relationship Specialty Start Date End Date Unallocated, Miracle Jesus MD Count includes the [facility] [place] [address] PCP - General 04/25/23 Judi Youssef MD [address] [place], [place] [phone] Referring Physician Family Medicine 04/25/23 Paint Laboratory Technician Relationship Specialty Start Date End Date Unallocated, Miracle Jesus MD [address] [place], [place] [address] [address] PCP - General 04/25/23 Judi oYussef MD [address] [place], [place] [phone] Referring Physician Family Medicine 04/25/23 Paint Laboratory Technician Relationship Specialty Start Date End Date Unallocated, Miracle Jesus MD [address] [place], [place] [address] [address] PCP - General 04/25/23 Judi Youssef MD [address] [place] [address] Referring Physician Family Medicine 04/25/23 Paint Laboratory Technician Relationship Specialty Start Date End Date No, Pcp PCP - General 08/17/24 Paint Laboratory Technician Relationship Specialty Start Date End Date Judi Youssef S, CASING TRIMMER - INTRAVENOUS THERAPY NURSE [address] [place] [address] PCP - General 08/29/24 Paint Laboratory Technician Relationship Specialty Start Date End Date Unallocated, Miracle Jesus MD [address] [place], [place] [address] [address] PCP - General 04/25/23 Judi Youssef MD [address] [place] [address] Referring Physician Family Medicine 04/25/[address]b PA [address] [place] [address] Physician Hand Nailer Neurology 11/26/24 Paint Laboratory Technician Relationship Specialty Start Date End Date Unallocated, Miracle Jesus MD [address] [place] [address] PCP - General 04/25/23 Judi Youssef MD [address] [place] [address] Referring Physician Family Medicine 04/25/23 Nikki Ayoub PA [address] [place] [address] Physician Hand Nailer Neurology 11/26/24 Paint Laboratory Technician Relationship Specialty Start Date End Date Unallocated, Miracle Jesus MD [address] [place], [place] [address] [place] [address] PCP - General 04/25/23 Judi Youssef MD [address] [place] [address] Referring Physician Family Medicine 04/25/23 Nikki Ayoub PA [address] [place], [place] [phone] Physician Hand Nailer Neurology 11/26/24 Paint Laboratory Technician Relationship Specialty Start Date End Date Regina Judi S, CASING TRIMMER - INTRAVENOUS THERAPY NURSE [facility] [place], [place] [phone] PCP - General 08/29/24 Goals (unrecognized section and content) Goals may be documented in a n alternate section REASON FOR VISIT (unrecogniz ed section and content) Reason Comments Appointment Reason Comments Biological Science Aide - Other Reason Onset Date Comments Procedure 05/25/2023 Manometry Esopha geal Specialty Diagnoses / Procedures Referred By Contac t Referred To Contact [facility] Diagnoses Nausea Procedures MANOMETRY ESOPHAGEAL ESOPHAGEAL MOTILITY STUDY W/INTERP&RPT Marques Bradley MD [address] [place] [address] [facility] [address] [place] [address] Referral ID Status Reason Start Date Expiration Date V isits Requested Visits Authorized [id number] Closed Auto-Generate d Referral 05/16/2023 05/16/2024 1 1 Reason Comments Results Reason Comments Patient Education Assessment Reason Comments Hypoglycemia NEW Reason Comments Hypoglycemia Specialty Diagnoses / Procedures Referred By Contac t Referred To Contact Diagnoses Other dysphagia Other dysphagia [R13.19] Procedures AL EGD TRANSORAL BIOPSY SINGLE/MULTIPLE AL ESOPHAGOGASTRODUODENOSCOPY TRANSORAL DIAGNOSTIC AL EGD BALLOON DILATION ESOPHAGUS <30 MM DIAM ESOPHAGOGASTRODUODENOSCOPY BIOPSY Justin Lucero MD [address] [facility] [address] [place] [address] [facility] [address] [place] [address] Referral ID Status Reason Start Date Expiration Date Visits Re quested Visits Authorized [id number] 1 1 Reason Comments Abdominal Pain Specialty Diagnoses / Procedures Referred By Contac t Referred To Contact Diagnoses Ileus (HCC) Intestinal obstruction (HCC) Obdulio Justice MD [address] [place] [address] [facility] [address] [place] [address] Referral ID Status Reason Start Date Expiration Date Visits Re quested Visits Authorized [id number] 1 1 Reason Comments Hospital Follow-up Reason Comments Seizures Source Comments (unrecognize d section and content) In the event this informatio n is protected by the Federal Confidentiality of Alcohol and Drug Abuse Patient Records regulations: The Federal rules restrict any use of the information to criminally investigate or prosecute any alcohol or drug abuse patient.[facility] the event this information is protected by the Federal Confidentiality of Alcohol and Drug Abuse Patient Records regulations: The Federal rules restrict any use of the information to criminally investigate or prosecute any alcohol or drug abuse patient.[facility] the event this information is protected by the Federal Confidentiality of Alcohol and Drug Abuse Patient Records regulations: The Federal rules restrict any use of the information to criminally investigate or prosecute any alcohol or drug abuse patient.[facility] Hospital[facility] the event this information is protected by the Federal Confidentiality of Alcohol and Drug Abuse Patient Records regulations: The Federal rules restrict any use of the information to criminally investigate or prosecute any alcohol or drug abuse patient.[facility] Hospital[facility] the event this information is protected by the Federal Confidentiality of Alcohol and Drug Abuse Patient Records regulations: The Federal rules restrict any use of the information to criminally investigate or prosecute any alcohol or drug abuse patient.[facility] Hospital[facility] the event this information is protected by the Federal Confidentiality of Alcohol and Drug Abuse Patient Records regulations: The Federal rules restrict any use of the information to criminally investigate or prosecute any alcohol or drug abuse patient.[facility] Hospital[facility] the event this information is protected by the Federal Confidentiality of Alcohol and Drug Abuse Patient Records regulations: The Federal rules restrict any use of the information to criminally investigate or prosecute any alcohol or drug abuse patient.[facility] Hospital[facility] the event this information is protected by the Federal Confidentiality of Alcohol and Drug Abuse Patient Records regulations: The Federal rules restrict any use of the information to criminally investigate or prosecute any alcohol or drug abuse patient.[facility] Hospital[facility] the event this information is protected by the Federal Confidentiality of Alcohol and Drug Abuse Patient Records regulations: The Federal rules restrict any use of the information to criminally investigate or prosecute any alcohol or drug abuse patient.[facility] Hospital[facility] the event this information is protected by the Federal Confidentiality of Alcohol and Drug Abuse Patient Records regulations: The Federal rules restrict any use of the information to criminally investigate or prosecute any alcohol or drug abuse patient.[facility] HospitalIn the event this information is protected by the Federal Confidentiality of Alcohol and Drug Abuse Patient Records regulations: The Federal rules restrict any use of the information to criminally investigate or prosecute any alcohol or drug abuse patient.[facility] HospitalIn the event this information is protected by the Federal Confidentiality of Alcohol and Drug Abuse Patient Records regulations: The Federal rules restrict any use of the information to criminally investigate or prosecute any alcohol or drug abuse patient.[facility] Scheduled Active and Recently Administ ered [...] Change - Provider: Chung Renee APRN - THERAPEUTIC RECREATION LEADER) PRN Medication Order 08/15/2024 08/16/2024 08/17/2024 0.9 [...] 1156 (Given - Provider: Enedina Madden RN) 0911 (Given - Provider: Bobbi Renee RN) enoxaparin (LOVENOX) injection 40 mg 40 mg, SubCUTAneous, DAILY, First dose on Tue08/28/24 at 1545, Until Discontinued, Indication of Use: Prophylaxis-DVT/PE, Administer by deep subCUTAneous injection with pt lying down. Alternate injection sites on abdominal wall. Do not rub site after injection. Check with provider prior to any invasive procedure. 1638 (Given - Provider: Maine Espinoza, RN) 0740 (Given - Provider: Enedina Madden [...] Armstrong MD) 0942 (Given - Provider: Bobbi Renee RN) metoclopramide (REGLAN) injection 10 mg [...] Pearce MD) 0942 (Given - Provider: Bobbi Renee, VICKY) pantoprazole (PROTONIX) 40 mg in [...] RN) 0942 (Given - Provider: Bobbi Renee, VICKY)2100 (Due) sertraline (ZOLOFT) tablet 50 [...] Infusing) 0942 (Given - Provider: Bobbi Renee RN)2100 (Due) Continuous Medication Order 08/28/2024 [...] not administer for more than 5 days. 9234 (Given - Provider: Brown Richard RN) 3007 (Given - Provider: Enedina Madden, RN)1414 (Given - Provider: Enedina Madden RN) labetalol [...] Midline or Central Line = 20 mL/lumen 2656 (Given - Provider: Brown Richard RN) Linked [...] BE BASED ON THE PRIMARY CLINICAL RECORDS. [facility]. provides no warranty or guarantee of the accuracy or completeness of information in this document.
== END 2025-06-20 08:54 | disposition home or self-care (01) ==
LOC: MAMMO 08:53
PROVIDERS: PCP Nurse Practitioner Family; Visit Provider Nurse Practitioner Family
DX: Z12.31 Encounter for screening mammogram for malignant neoplasm of breast (principal); Z80.3 Family history of malignant neoplasm of breast; Z80.0 Family history of malignant neoplasm of digestive organs; Z80.41 Family history of malignant neoplasm of ovary; Z80.8 Family history of malignant neoplasm of other organs or systems
CPT/HCPCS: 77063; 77067

== ENCOUNTER 2025-07-19 09:14 | Outpatient (OUT) | payer BC, SELFPAY ==
--- OUTSIDE RECORDS SUMMARY | 2025-07-19 09:19 | XMS_ITS | Clinical Summary ---
Author Organization [facility] Address [address] [place] [address] Care Team Providers Care Bone Worker Name Role Phone Joel Alejandra DO Primary Care Provider [phone] Rafa Rangel Unavailable [phone] Allergies Active AllergyReactionsCriticalityNoted DateCommentsCyclobenzaprineSwellingHigh 04/28/20182548WgzyuhbhiaOurcbsieGpeg56/24/2018 Medications * This document contains information received from the source organization and may not represent a complete record from that organization. MedicationSigDispense QuantityRefillsLast FilledStart DateEnd DateStatus pantoprazole DR (PROTONIX) 40 mg tablet 04/13/2018Active promethazine (PHENERGAN) 25 mg tablet 03/25/2018Active dicyclomine (BENTYL) 20 mg tablet Take 20 mg by mouth before meals and at bedtime.Active pantoprazole DR (PROTONIX) 40 mg tablet Take 1 tablet by mouth two times a day. 60 tablet 08/25/2023ctive Active Problems ProblemNoted DateDiagnosed DateHiatal fjmspb5504/28/2018Morbid kxgcoen5304/28/2018 Social History Tobacco UseTypesPacks/DayYears UsedDateSmoking Tobacco: LhednjYeodwjqjhs7856 - 2011Smokeless Tobacco: Never Tobacco Cessation:Counseling Given: Not Answered Comments: still smokes Alcohol UseStandard Drinks/WeekCommentsNot Currently0 (1 standard drink = 0.6 oz pure alcohol)socialPHQ-2AnswerDate RecordedPHQ-2 iqkkp15009/07/2022rea Deprivation IndexAnswerDate RecordedNational Score (1-100), lower number is lower edgu1137State Score (1-10), lower number is lower ivpo684 Data from: https://www.neighborhoodatlas.medicine.[facility].edu/. Last address used for cswlbocemny[address]/06/2023CommentsNoSex and Gender InformationValueDate RecordedSex Assigned at BirthNot on fileLegal SexFemale 04/26/2018 1:47 PM EDTGender IdentityNot on fileSexual OrientationNot on file Last Filed Vital Signs Vital SignReadingTime TakenCommentsBlood Bkewrwcs070/8108/25/2023 4:20 PM EST Fwgqc777908/25/2023 4:20 PM SDZUvaykyrrjvr13 ??C (96.8 ??F)08/25/2023 3:48 PM EST Respiratory Msln539510/26/2022 4:20 PM ESTOxygen Wngxzjticr94%08/25/2023 4:20 PM ESTInhaled Oxygen Concentration--Mxefjx98.5 kg (184 lb)08/25/2023 1:50 PM EST Pmxnsl109.2 cm (5' 7 )08/25/2023 1:50 PM ESTBody Mass Index28.8208/25/2023 1:50 PM EST Plan of Treatment Health MaintenanceDue DateLast DoneCommentsAnxiety Yhovxtxnp42/23/1988Depression Rgfsrcqzp27/23/1988HIV Hciiheenr68/23/1988Hepatitis C Efnjkgfqj35/23/1988 DTaP,Tdap,Td Vaccine (1 - Tdap)1989Hepatitis B Vaccine (1 of 3 - 19+ 3- dose series)1989Cervical Cancer Ftmvvovwt11/23/1991Mammogram Screening 2010CT Ztbhzrnrciqd21/23/2015Cologuard (FIT-DNA)2015Colonoscopy 2015Colorectal Cancer Orqplcpan90/23/2015Diabetes Nsrebldhu94/23/2015Fecal Occult Blood2015Lipid Xpxhyojcf38/23/0783Sxiukogvyepgy25/23/2015 Pneumococcal Vaccine: 50+ (1 of 1 - PCV)2020Shingrix Vaccine (1 of 2) 2020Covid-19 Vaccine ( season)510/07/2022, 03/18/2022, 11/06/2021, Additional history existsInfluenza Vaccine (#1)510/01/2022 Insurance Care Teams Team MemberRelationshipSpecialtyStart DateEnd Date Joel Alejandra DO PCP - GeneralFamily Medicine04/26/18 Rafa Rangel [address] [place] [phone] ReferringGeneral Surgery04/26/18
--- OUTSIDE RECORDS SUMMARY | 2025-07-19 09:19 | XMS_ITS | Clinical Summary ---
Author Organization [facility] Address [address] [place] [address] Care Team Providers Care Warper Tender Name Role Phone Judi Tapia REJI Primary Care Provider [phone] Allergies Active AllergyReactionsCriticalityNoted DateCommentsCyclobenzaprineOther, ZrgwsmzdNcho24/24/2018PenicillinsOther,Rash,VpwnrtktCpqe41/24/2018 Medications MedicationSigDispense QuantityRefillsLast FilledStart DateEnd DateStatus sertraline (Zoloft) 50 mg tablet Take 50 mg by mouth in the morning.01/29/2024ctive lisinopril 10 mg tablet Indications:Essential hypertensionTake 1 tablet (10 mg) by mouth in the morning. 30 tablet ctive Additional Information Patient taking differently: 40 mgoral Daily, Reported on 02/28/2025 pantoprazole (ProtoNix) 40 mg EC tablet Take 40 mg by mouth before breakfast.12/05/2023ctive acarbose (Precose) 25 mg tablet Take 1 tablet by mouth in the morning and at bedtime.4Active metoprolol succinate XL (Toprol-XL) 50 mg 24 hr tablet Indications:Essential hypertensionTAKE 1 TABLET (50 MG) BY MOUTH IN THE MORNING DO NOT CRUSH OR CHEW 90 tablet ctive levETIRAcetam (Keppra) 750 mg tablet Take 750 mg by mouth.Active aspirin 81 mg EC tablet Take 81 mg by mouth in the morning.5Active metoclopramide (Reglan) 5 mg tablet TAKE 1 TABLET BY MOUTH BEFORE MEALS AND AT ZPENLUU72/05/2025Active Active Problems ProblemNoted DateDiagnosed DateContusion of left knee02/28/2025Pure wznlgzqdylgzrfdupjzx25/26/2025Screening for colon ivrwfq0202/26/2025Other chest pain12/30/2024bdominal xajisaesr01/10/2025Mixed incontinence urge and stress 09/14/20246752Nitmmy20/10/2025Gastroesophageal reflux disease with esophagitis without utqralykgj38/25/6345Wjkijulvwsi13/25/2024Major depressive disorder 08/29/20247212Nwycizaugywu73/09/2024Small bowel /27/2024symptomatic microscopic bpadbfcyq25/15/1171Grhdprign09/12/2024arrett djmezhlsk23/12/2024 Abdominal pain02/15/2024ark sxnqwz0602/15/20246050Sraioqyt24/12/2024ysphagia 02/15/2024Elevated musdwocm84/12/2024Epigastric abdominal pain02/15/2024 Aradmkyfh02/12/0465Ufnujoyqvqqkc46/12/2024Hard stool02/15/2024Heartburn 02/15/2024cid xlvdpa3902/15/2024Essential xprqvbsipchy76/12/2024History of repair of hiatal pwusys6302/15/2024Hx of urinary tract vgurwkksy88/12/2024Irregular bowel rezqgf9702/15/2024Kidney hspuwo2402/15/20248268Acrbrsftd00/12/0402Aqnknhrdvape20/12/2024 Overweight (BMI 25.0-29.9)02/15/20241906Gflxqmdbqnh10/12/5376Fginrdlg14/12/2024 Strain of lumbar yqjqat5202/15/2024Urinary xpwnwkf7502/15/2024UTI (urinary tract infection)02/15/20248278Oninobsxrgeq29/12/2024Sinus pvajyuwnrjv84/12/2024OE (dyspnea on exertion)02/15/2024Obstructive sleep apnea02/15/2024Former smoker 02/15/2024 Resolved Problems ProblemNoted DateDiagnosed DateResolved DateMorbid voiktqf18 Family History Medical HistoryRelationNameCommentsCoronary artery diseaseBrotherHeart attack FatherRelationNameStatusCommentsBrotherDeceasedFatherDeceasedMotherAliveSister Alive Social History Tobacco UseTypesPacks/DayYears UsedDateSmoking Tobacco: FormerCigarettes Smokeless Tobacco: Never Tobacco Cessation:Counseling Given: Not Answered Alcohol UseStandard Drinks/WeekCommentsYes0 (1 standard drink = 0.6 oz pure alcohol)seldomUT Safety & EnvironmentAnswerDate RecordedFear of Current or Ex-PartnerNot on file02/08/2024Emotionally AbusedNot on file02/08/2024hysically AbusedNot on file02/08/2024Sexually AbusedNot on file02/08/2024hysically or Sexually AbusedNot on file02/08/2024CommentsUnknownSex and Gender InformationValueDate RecordedSex Assigned at BirthNot on fileLegal SexFemale 03/03/2022 11:53 PM EDTGender IdentityNot on fileSexual OrientationNot on file Last Filed Vital Signs Vital SignReadingTime TakenCommentsBlood Gavysvvs533/8206 9:40 AM EDT Buwad236202/28/2025 9:40 AM LSEMkdkldtekrk21.4 ??C (97.6 ??F)05/22/2019 1:22 PM EDTRespiratory Rate--Oxygen Ihnjjlmowt56%02/28/2025 9:40 AM EDTInhaled Oxygen Concentration--Atqsnt32.7 kg (189 lb)02/28/2025 9:40 AM ELUKlyxbb433.2 cm (5' 7 )02/28/2025 9:40 AM EDTBody Mass Index29.606 9:40 AM EDT Plan of Treatment Health MaintenanceDue DateLast DoneCommentsCT Tsrgkowpphtm1970FIT-DNA 1970FIT1970 7898Qfbglmrkbupos1970Depression Utghomkjn91/23/1982 Hepatitis B Vaccines (1 of 3 - 19+ 3-dose series)1989Pap Smear1991 Adult Ngkowhl1005/28/1992Cervical Cancer Qjhkdldix18/23/2000HPV/Qpfkvw0505/28/2000 Vphqsmrwe03/23/6605MQZN68/COVID-19 Vaccine ( season) /07/2022, 03/18/2022, 11/06/2021, Additional history existsInfluenza Vaccine (#1)/6178Avltrtdriir57, 05/17/2019 Colorectal Cancer Nfvtlalrr47/09/2030Zoster HvamiqiwDyfhvdctc80/17/2025, 04/27/2024HIB VaccinesAged OutNo longer eligible based on patient's age to complete this topicHPV VaccinesAged OutNo longer eligible based on patient's age to complete this topicIPV VaccinesAged OutNo longer eligible based on patient's age to complete this topicMeningococcal B VaccineAged OutNo longer eligible based on patient's age to complete this topicMeningococcal VaccineAged OutNo longer eligible based on patient's age to complete this topicPneumococcal Vaccine: Pediatrics (0 to 5 Years) and At-Risk Patients (6 to 64 Years)Aged Out No longer eligible based on patient's age to complete this topicRotavirus VaccinesAged OutNo longer eligible based on patient's age to complete this topic Procedures Procedure NamePriorityDate/TimeAssociated DiagnosisCommentsOCCULT BLOOD X 1, BFGUAFZMU97/11/2019 10:20 PM EST from Last 3 Months or Most Recently Relevant to Health Maintenance Results * Occult blood x 1, stool (08/15/2019 10:20 PM EST)ComponentValueRef RangeTest MethodAnalysis TimePerformed AtPathologist SignatureFecal Occult BldNEGATIVE NEGATIVELAB CONVERSIONSSpecimen (Source)Anatomical Location / Laterality Collection Method / VolumeCollection TimeReceived Time08/15/2019 10:20 PM EST 08/15/2019 10:49 PM EST Narrative LAB CONVERSIONS - 08/16/2019 6:50 AM EST No: Do not add to previous draw Authorizing ProviderResult TypeResult StatusSesar Adair MDLAB BODY FLUIDS AND STOOLS ORDERABLESFinal ResultPerforming OrganizationAddressCity/State/ZIP Code Phone Number LAB CONVERSIONS from Last 3 Months or Most Recently Relevant to Health Maintenance Insurance Care Teams Team MemberRelationshipSpecialtyStart DateEnd Date Judi Tapia CNP [facility] [facility] [place] [address] PCP - GeneralFamily Medicine02/14/24
--- OUTSIDE RECORDS SUMMARY | 2025-07-19 09:19 | XMS_ITS | Clinical Summary ---
Author Organization [facility] Address [address], [address] [place] [address] Care Team Providers Care Cat Scanner Operator Name Role Phone Judi Tapia SUPERVISOR ROSE GRADING - COMPRESSOR TECHNICIAN Primary Care Provide r Allergies Active AllergyReactionsCriticalityNoted DateCommentsCyclobenzaprineOther (See Comments),GfzslnakOyfl51/24/2018 Other Reaction(s): Other, Swelling of Lip/Tongue/Throat, throat swelling UckwydxjgwxeiYxzmVgf59/27/2024enicillinsOther (See Comments),Rash,SwellingHigh 04/28/2018 Medications MedicationSigDispense QuantityRefillsLast FilledStart DateEnd DateStatus acarbose (PRECOSE) 25 MG tablet Take 1 tablet by mouth 2 times daily07/16/2024ctive vitamin D (VITAMIN D3) 50 MCG (1999) CAPS capsule Take 1 capsule by mouth daily05/01/2024ctive dicyclomine (BENTYL) 20 MG tablet Take 1 tablet by mouthActive lisinopril (PRINIVIL;ZESTRIL) 10 MG tablet Take 1 tablet by mouth every morningActive metoprolol succinate (TOPROL XL) 50 MG extended release tablet Take 1 tablet by mouth dailyActive pantoprazole (PROTONIX) 40 MG tablet Take 1 tablet by mouth daily08/25/2023ctive sertraline (ZOLOFT) 50 MG tablet Take 1 tablet by mouth dailyActive hyoscyamine (ANASPAZ;LEVSIN) 0.125 MG tablet Take 1 tablet by mouth every 4 hours as needed for CrampingActive promethazine (PHENERGAN) 25 MG tablet Take 1 tablet by mouth every 6 hours as needed for NauseaActive bisacodyl 5 MG EC tablet Take as directed for bowel prep/colonoscopy 4 tablet 5Active dicyclomine (BENTYL) 10 MG capsule Take 1 capsule by mouth 4 times daily as needed (pain lower abdomen) 45 capsule 5Active aspirin 81 MG EC tablet Take 1 tablet by mouth every vhmgeca44/15/2025Active polyethylene glycol (GLYCOLAX) 17 GM/SCOOP powder TAKE PER BOWEL PREP INSTRUCTIONS 238 g 5Active Active Problems ProblemNoted DateDiagnosed DateGastroesophageal reflux uiwsazr5703/14/2025 Dysphagia, owgqsyajgmy06/24/2025Generalized abdominal pain08/30/2024rimary pejsefojmxxe86/25/2024Gastroesophageal reflux disease with esophagitis without dlqcgzdaot03/25/2024Major depressive /25/3216Jjtxnhrnrlj32/25/2024 Ileus08/28/2024Other zcxhtbsil51/11/2024 Resolved Problems ProblemNoted DateDiagnosed DateResolved DateScreening for colon ouavgy0502/26/2025 03/28/2025 Social History Tobacco UseTypesPacks/DayYears UsedDateSmoking Tobacco: FormerCigarettes Smokeless Tobacco: Never Tobacco Cessation:Counseling Given: Not Answered Alcohol UseStandard Drinks/WeekCommentsYes0 (1 standard drink = 0.6 oz pure alcohol)[facility]areMER[facility] UtilitiesAnswerDate RecordedIn the past 12 months has the [employer], [facility], oil, or water [employer] threatened to shut off services in your home?No08/28/2024UDIT-CAnswerDate RecordedQ1: How often do you have a drink containing alcohol?Never08/28/2024Q2: How many drinks containing alcohol do you have on a typical day when you are drinking?Patient does not drink08/28/2024Q3: How often do you have six or more drinks on one occasion?Never08/28/2024Hunger Vital SignAnswerDate RecordedWithin the past 12 months, you worried that your food would run out before you got the money to buymore.Never true08/28/2024 Within the past 12 months, the food you bought just didn't last and you didn't have money to get more.Never true08/28/2024RAPARE - TransportationAnswerDate RecordedIn the past 12 months, has lack of transportation kept you from medical appointments or from getting medications?No08/28/2024In the past 12 months, has lack of transportation kept you from meetings, work, or from getting things needed for daily living?No08/28/2024Housing Stability Vital SignAnswerDate RecordedIn the last 12 months, was there a time when you were not able to pay the mortgage or rent on time?No08/28/2024In the past 12 months, how many times have you moved where you were living?t any time in the past 12 months, were you homeless or living in a assisted (including now)?No08/28/2024 Food InsecurityAnswerDate RecordedWithin the past 12 months, you worried that your food would run out before you got the money to buymore.Within the past 12 months, the food you bought just didn't last and you didn't have money to get more.Interpersonal Safety Domain Source: IP Abuse ScreeningAnswerDate RecordedPhysical wykklJstanh59/24/2024Verbal abuseDenies 08/28/2024Emotional hctwxIzgxob01/24/2024Financial ltsquDsslvt68/24/2024Sexual vtcxoPtrxmi26/24/2024CommentsNoSex and Gender InformationValueDate RecordedSex Assigned at BirthNot on fileLegal ZkpLapwnt30/06/2024 1:06 PM EST Gender IdentityNot on fileSexual OrientationNot on file Last Filed Vital Signs Vital SignReadingTime TakenCommentsBlood Ktduvgyd089/8902/26/2025 1:20 PM EDT Ypctt443602/26/2025 1:20 PM FNDXxffltdsjmg14.9 ??C (98.4 ??F)02/26/2025 1:20 PM EDTRespiratory Zamw911202/26/2025 1:20 PM EDTOxygen Tkhulzvhjd88%02/26/2025 1:20 PM EDTInhaled Oxygen Concentration--Gdjfjw23.3 kg (188 lb)03/18/2025 1:05 PM EDT Kugbdn638.2 cm (5' 7 )03/18/2025 1:05 PM EDTBody Mass Index29.4407 1:05 PM EDT Plan of Treatment Health MaintenanceDue DateLast DoneCommentsDepression Wjqdmfydgx00/23/1982HIV obcghx3705/28/1985Hepatitis C eerhfw4205/28/1988DTaP/Tdap/Td vaccine (1 - Tdap) 1989Hepatitis B vaccine (1 of 3 - 19+ 3-dose series)1989Diabetes hwyudp0305/28/2005Breast cancer yvxfsd1705/28/20100833Gwdpsv46/23/2010Colonoscopy 2015Colorectal Cancer Ulxwpl0205/28/2015FIT/FOBT: Average risk2015 Fecal-DNA (Cologuard): Average risk2015Sigmoidoscopy/CT colonography 2015Pneumococcal 50+ years Vaccine (1 of 1 - PCV)2020Flu vaccine (#1)510/2COVID-19 Vaccine ( season)2025 06/15/2022, 03/18/2022, 11/06/2021, Additional history existsShingles vaccine Fuyumbpds86/17/2025, 04/27/2024Hepatitis A vaccineAged OutNo longer eligible based on patient's age to complete this topicHib vaccineAged OutNo longer eligible based on patient's age to complete this topicMeningococcal (ACWY) vaccineAged OutNo longer eligible based on patient's age to complete this topic Meningococcal B vaccineAged OutNo longer eligible based on patient's age to complete this topicPolio vaccineAged OutNo longer eligible based on patient's age to complete this topic Insurance Advance Directives * Full Code (Latest Code Status on File) Date ActivatedDate DoufxtkbpogUazbgema39/24/2024 3:16 PM08/30/2024 6:26 PM Care Teams Team MemberRelationshipSpecialtyStart DateEnd Date Judi Tapia, SUPERVISOR ROSE GRADING - COMPRESSOR TECHNICIAN [address] [place] [address] PCP - Sprezyc73/25/24
--- OUTSIDE RECORDS SUMMARY | 2025-07-19 09:19 | XMS_ITS | Clinical Summary ---
Author Organization [facility] Address [address] [place] [address] Phone Care Team Providers Care Over Short And Damage Clerk Name Role Phone Unavailable Primary Care Provider Unavailabl e Social History Tobacco UseTypesPacks/DayYears UsedDateSmoking Tobacco: Never Assessed CommentsUnknownSex and Gender InformationValueDate RecordedSex Assigned at Not on fileLegal SrmCptaqe26/24/2023 1:11 PM EDTGender IdentityNot on fileSexual OrientationNot on file Plan of Treatment Health MaintenanceDue DateLast DoneCommentsCT Utnvhlqruxhb1970Colonoscopy 1970Colorectal Cancer Pcrzhxlrs1970FIT-DNA (Cologuard)1970FIT 1970HIV Mkldavrwd1970Lipid Panel1970 2087Cvdfugvdacsrv1970 Yearly Adult Xkrfomqv1970MMR Vaccines (1 of 1 - Standard series)1971 Hepatitis C Agovzdjsc65/23/1988Hepatitis B Vaccines (1 of 3 - 19+ 3-dose series) 1989Cervical Cancer Vsswvvunc12/23/1991HPV/Nvezus9105/28/1991Pap Smear 1991DTaP/Tdap/Td Vaccines (1 - Tdap)05/28/19929437Jifjkrfvv38/23/2010 Pneumococcal Vaccine (1 of 1 - PCV)2020Zoster Vaccines (1 of 2)2020 Influenza Vaccine (#1)5COVID-19 Vaccine (1 - 2024- season)2025 HIB VaccinesAged OutNo longer eligible based on patient's age to complete this topicHPV VaccinesAged OutNo longer eligible based on patient's age to complete this topicHepatitis A VaccinesAged OutNo longer eligible based on patient's age to complete this topicIPV VaccinesAged OutNo longer eligible based on patient's age to complete this topicMeningococcal VaccineAged OutNo longer eligible based on patient's age to complete this topicRotavirus VaccinesAged OutNo longer eligible based on patient's age to complete this topic
--- OUTSIDE RECORDS SUMMARY | 2025-07-19 09:19 | XMS_ITS | Clinical Summary ---
Author Organization [facility] Address [address] [place] [address] Care Team Providers Care Supervisor Liquefaction Name Role Phone Unallocated, [facility] Provider Primary Care Provi christine Judi Tapia MD Unavailable [phone] Nikki Ayoub Unavailable Allergies Active AllergyReactionsCriticalityNoted DateCommentsCyclobenzaprineSwellingHigh 04/28/2018 Other Reaction(s): Other, Swelling of Lip/Tongue/Throat, throat swelling ZztkrpohixmktQsqvEek51/27/2024enicillinsRash,QkynobhjUflh92/24/2018 Medications MedicationSigDispense QuantityRefillsLast FilledStart DateEnd DateStatus cholecalciferol (Vitamin D-3) 50 MCG (1999 UT) capsule Take 1 capsule by mouth Daily05/01/2024ctive dicyclomine (Bentyl) 20 MG tablet Take 1 tablet by mouth in the morning and 1 tablet in the evening and 1 tablet before bedtime.Active hyoscyamine (Anaspaz,Levsin) 0.125 MG tablet Take 1 tablet by mouth every 6 (six) hours if dxcczr5105/01/2024ctive lisinopril 20 MG tablet Take 20 mg by mouth Daily03/19/2024ctive metoprolol succinate XL (Toprol-XL) 50 MG 24 hr tablet Take 50 mg by mouth in the morning.02/15/2024ctive pantoprazole (ProtoNix) 40 MG EC tablet Take 40 mg by mouth in the morning. Take before meals.08/25/2023ctive sertraline (Zoloft) 50 MG tablet Take 50 mg by mouth in the morning.01/29/2024ctive acarbose (Precose) 25 MG tablet Indications:HypoglycemiaTake 1 tablet (25 mg) by mouth in the morning and 1 tablet (25 mg) before bedtime. 180 tablet ctive aspirin 81 MG EC tablet Take 81 mg by mouth DailyActive levETIRAcetam (Keppra) 1000 MG tablet Indications:Seizure (HCC)Take 1 tablet (1,000 mg) by mouth in the morning and 1 tablet (1,000 mg) before bedtime. 60 tablet 5Active Immunizations ImmunizationAdministration DatesNext DueInfluenza, seasonal, injectable 06/09/2022Zoster, Leyzfpbusiz45/23/2024 Family History Medical HistoryRelationNameCommentsAlcohol abuseBrotherCancerFatherDiabetes SisterHypertensionSisterThyroid diseaseSisterAlcohol abuseSonRelationNameStatus CommentsBrotherDaughterx 2AliveFatherDeceasedMotherAliveSisterAliveSonAlive Social History Tobacco UseTypesPacks/DayYears UsedDateSmoking Tobacco: FormerCigarettes Smokeless Tobacco: NeverAlcohol UseStandard Drinks/WeekCommentsNever0 (1 standard drink = 0.6 oz pure alcohol)CommentsUnknownSex and Gender InformationValueDate RecordedSex Assigned at BirthNot on fileLegal SexFemale 11/17/2022 7:39 PM EDTGender IdentityNot on fileSexual OrientationNot on file Last Filed Vital Signs Vital SignReadingTime TakenCommentsBlood Dkeiqyuj144/9205 2:15 PM EDT Hylib009501/07/2025 2:15 PM EDTTemperature--Respiratory Eazx291701/07/2025 2:15 PM EDTOxygen Tkmwwmqejo87%01/07/2025 2:15 PM EDTInhaled Oxygen Concentration-- Znvhyj35.3 kg (188 lb)01/07/2025 2:15 PM DNKIkattt414.2 cm (5' 7 )01/07/2025 2:15 PM EDTBody Mass Index29.44001/07/2025 2:15 PM EDT Plan of Treatment Health MaintenanceDue DateLast DoneCommentsCT Iuqxczosgndb1970FIT-DNA 1970FIT1970FOBT1970 5936Xmuvaobosctwd1970Pap Smear1991 Cervical Cancer Cpycajznn07/23/2000HPV/Trptpl6505/28/20003330Jrbmktwfq02/23/2010COVID- 19 Vaccine ( season)507/, 11/06/2021, 02/26/2021, Additional history existsInfluenza Vaccine (#1)/2Colonoscopy , 05/17/2019Colorectal Cancer Nwidrbtux14/09/2030 Pneumococcal Vaccine: Pediatrics (0 to 5 Years) and At-Risk Patients (6 to 64 Years)Aged OutNo longer eligible based on patient's age to complete this topic Insurance Care Teams Team MemberRelationshipSpecialtyStart DateEnd Date Unallocated, [facility]oms MD Ed[facility] [address] [place] [address] PCP - General04/25/23 Judi Tapia MD [address] [place] [address] Referring PhysicianFamily Medicine04/25/23 Nikki Ayoub PA [address] [place] [address] Physician AssistantNeurology11/26/24
--- OUTSIDE RECORDS SUMMARY | 2025-07-19 09:20 | XMS_ITS | Clinical Summary ---
Author Organization [facility] Address [facility] [address] [place] [address] Care Team Providers Care Physician Relations Representative Name Role Phone Judi Tapia CANDLE POURER-BLOCK AND CASE MAKER Primary Care Provider Social History Tobacco UseTypesPacks/DayYears UsedDateSmoking Tobacco: Never Assessed CommentsUnknownSex and Gender InformationValueDate RecordedSex Assigned at Not on fileLegal DbmJgwidt10/13/2022 2:17 PM EDTGender IdentityNot on fileSexual OrientationNot on file Plan of Treatment Health MaintenanceDue DateLast DoneCommentsDepression Knnqvujjy62/23/1982Tobacco Ubmdqllbd46/23/1982Adult BMI Ubocqhcom71/23/1988DTaP,Tdap and Td Vaccines (1 - Tdap)1989Pap Smear1991Zoster (Shingles) Vaccine (1 of 2)2020 COVID-19 Vaccine ( season)/07/2022, 03/18/2022, 11/06/2021, Additional history existsInfluenza Hhfgzgo29/01/2022 Medical Devices Not on file Insurance Care Teams Team MemberRelationshipSpecialtyStart DateEnd Date Judi Tapia, CANDLE POURER-BLOCK AND CASE MAKER [address], [place] [address] [facility]CP [facility]12/01/23
--- OUTSIDE RECORDS SUMMARY | 2025-07-19 09:20 | XMS_ITS | Patient Health Record ---
Author Organization [facility] Address [address] [place] [address] Care Team Providers Care Devops Engineer Name Role Phone Judi Tapia Primary Care Provider Samuel Steve Unavailable [phone] Allergies Allergen (clinical drug ingredient) Drug/Non Drug Allergy documented on EMR Reaction Allergy Type Onset Date Status penicillin (uncoded)UnknownAllergyActiveFlexerilUnknownDrug AllergyActive Reason For Referral Reason AD BWC - RTW NO REST RICTIONS 08/07 Diagnosis 1 Contusion of left kn ee, subsequent encounter (S80.02XD) Referral Organization [facility] Referring Provider First Name Samuel Referring Provider Last Name Katiuska Referring Provider Speciality Orthopedic Surgery Referred Organization [facility] e Referred Address [address] [place] [address],[address],[place], [place],[address], General Notes Marisela Varghese 03:31:51 PM > faxed note and [facility] Referral Priority Routine Social History Tobacco Use: Social History Observation Description Date Details (start date - stop date) Never Smoker NA - NA AUDIT-C (Standard) Question Answer Notes Did you have a drink containing alcohol in the p ast year? No Lxqmtn3UpxobrnmgyxrxvEgmrrizjDxvrooq Control (Standard) Question Answer Notes Tobacco use: Nonsmoker Problems Problem Type SNOMED Code ICD Code Onset Dates Problem Status W/U Status Risk Notes Problem Contusion of knee (96522422) Contusion of knee, left (S80.02XA) ActiveconfirmedProblemContusion of left knee (56969101685268593)Contusion of left knee, subsequent encounter (S80.02XD)Activeconfirmed Vital Signs Height 5'1 in 08/06/2024 Nmigok967 lbs13487TBD14.38110/07/2023 Encounters Encounter Location Date Provider Diagnosis [facility] [address] [place] [address] [place] [address] 08/06/2024 Samuel Harp Contusion of left knee, subsequent encounter S80.02XD Assessments Encounter Date Diagnosis (ICD Code) Assessment Notes Treatment Notes Treatment Clinical Notes Section Notes 08/06/2024 Contusion of left knee, subseque nt encounter (ICD-10 - S80.02XD) 08/06/2024Other Patient is doing well after left knee work injury. She at this point can return to work without restrictions. She will follow-up on an as-needed basis. Import medication Plan Of Treatment Pending Test Test Name Order Date MRI : Knee W/O Contrast Left - 67042 Insurance Providers Payer Name Payer Address Payer Phone Subscriber Number Group Number Insured Name Patient Relationship to Insured Coverage Start Date Coverage End Date Lizette -[place] only [id number] [place] [address] [phone] DOI 24 lt knee [employer], [employer] Self - patient is the insured [facility] [address] [place] [id number], COLLEENIASelf - patient is the insured Medical (General) History Medical History History ICD Code Heart problems: High Blood Pressure
--- OUTSIDE RECORDS SUMMARY | 2025-07-19 09:20 | XMS_ITS | Patient Health Record ---
Author Organization [facility] [place] Address [address] [place] [address] Care Team Providers Care Trimming Cutter Name Role Phone Judi Youssef Primary Care Provider Isaac Izaguirre [phone] Allergies Allergen (clinical drug ingredient) Drug/Non Drug Allergy documented on EMR Reaction Allergy Type Onset Date Status Flexeril (uncoded)anaphylaxisAllergyActivePenicillin (uncoded)arm swelling AllergyActive Results Component Value Reference Range Notes CT abdomen pelvis w con Reviewed date:08/28/2024 08:57:50 AM Interpretation: Performing Lab: Notes/Report: Source Facility: [place] [address] CT Scan Report Signed Patient: CONSTANTINO MENDIOLA MR#: [id number] : 1970 Acct:[id number] Age/Sex: 54 / F ADM Date: 08/28/24 Loc: ER Attending Dr: Ordering Physician: Zeferino Armas M.D. Date of Service: 08/28/24 Procedure(s): CT abdomen pelvis w con Accession Number(s): [id number] cc: JUDI YOUSSEF [place] [address] Patient Name: CONSTANTINO MENDIOLA MRN: [id number] date: 1970 Sex: F Assigned Patient Location: ER Current Patient Location: ER Accession/Order Number: [id number] Exam Date: 08/28/2024 05:55 Report Date: 08/28/2024 [...] transition point. No dilated small bowel loops. Lzscb-bu-xdnuunhx hiatal hernia. Esophagogastric tube tip terminates in [...] tube tip terminates in the distal stomach. Ednca-bf-uanzkjly hiatal hernia. 3. Intermediate density lesion in the right renal cortex may correlate with a hemorrhagic/proteinaceous cyst. This could be further characterized with CT or MRI renal protocol. 4. Biliary ductal dilatation likely related to postcholecystectomy state. Recommend clinical correlation. Electronically authenticated by: MARQUES ROSEN Date: 08/28/2024 07:52 Dictated By: Marques Rosen M.D. Signed By: 08/28/24 0755 DD/ 0752 TD/TT: Varnishing Machine Operator: Troponin I High Sensitivity Reviewed date:08/28/2024 08:57:50 AM Interpretation: Performing Lab: Notes/Report: [facility] , Troponin I High Sensitivity 38.1 4.0-51.3 pg/m L CUT-OFF POINTS HAVE BEEN ESTABLISHED BASED ON THE FOURTH UNIVERSAL DEFINITION OF MYOCARDIAL INFARCTION. THE UPPER REFERENCE LIMIT (URL) OF TROPONIN, DEFINED THE 99TH PERCENTILE OF cTnI DISTRIBUTION IN A REFERENCE POPULATION, HAS BEEN CONFIRMED THE DECISION THRESHOLD FOR [place] DIAGNOSIS. 99TH PERCENTILE = 51.4 PG/ML NOTE: HIGH-SENSITIVITY TROPONIN ASSAY IS NOT INTENDED TO BE USED IN ISOLATION BUT SHOULD BE INTERPRETED IN CONJUNCTION WITH OTHER DIAGNOSTIC AND CLINICAL INFORMATION. Performing Lab: see note ML - [facility] LBPROF 14(COMP METB) Reviewed date:09/07/2024 11:32:59 AM Interpretation: Performing Lab: Notes/Report: [facility] ,Tnblcs751005-244 mmol/LPotassium3.63.5-5.1 mmol/HWfuqpmzj46606-523 mmol/LCarbon Drwidan90.221.0-32.0 mmol/LAnion Gap12.6Ndtozes29938-941 mg/dLBlood Urea Rjqccbjm85.07.0-18.0 mg/dLCreatinine0.960.55-1.02 mg/dLEstimated GFR ( Milagro>60>=60 mL/min/1.73m 2Estimated GFR (Non- Skylar>60>=60 mL/min/1.73m 2BUN Creatinine Ratio27.3Bjditpc4.38.5-10.1 mg/dLBilirubin Total0.30.2-1.0 mg/dL Aspartate Amino Djmmewamvoq7618-03 U/LAlanine Cfmxwsimmgaxwdvz3264-66 U/L Alkaline Totdhjastlv55999-989 U/LTotal Protein7.56.4-8.2 g/dLAlbumin Level3.8 3.4-5.0 g/dLGlobulin3.7Albumin Globulin Ratio1.0Performing Lab:see noteML - [facility] LBCBC AUTO DIFF Reviewed date:12/18/2024 02:35:37 PM Interpretation: Performing Lab: Notes/Report: [facility] ,White Blood Count5.74.0-11.0 10 3/uLRed Blood Count4.064.20-5.40 10 6/uL Ippvaxbtpt15.112.0-16.0 g/kMPwsshgcapr58.936.0-48.0 %Mean Corpuscular Garuqa55.9 81.0-99.0 fLMean Corpuscular Pgvlgutixz35.826.7-34.0 pgMean Corpuscular HGB Conc 32.829.9-35.2 g/dLRed Cell Distribution Width13.111.0-15.0 %Platelet Tmuag657 150-450 10 3/uLMean Platelet Volume9.49.5-13.5 fLNeutrophils Percent Auto47.0 43.0-75.0 %Lymphocytes Percent Auto39.620.5-60.0 %Monocytes Percent Auto8.01.7- 12.0 %Eosinophils Percent Auto4.90.9-7.0 %Basophils Percent Auto0.50.2-2.0 % Immature Granulocytes Pct Auto0.00.0-0.5 %Neutrophils Absolute Auto2.71.4-6.5 10 3/uLLymphocytes Absolute Auto2.21.2-3.8 10 3/uLMonocytes Absolute Auto0.50.3-0.8 10 3/uLEosinophils Absolute Auto0.30.0-0.7 10 3/uLBasophils Absolute Auto0.00.0- 0.1 10 3/uLImmature Granulocytes Abs Auto0.000.00-0.03 10 3/uLPerforming Lab:see noteML - [facility] LBUrine Culture - [facility] Reviewed date:12/21/2024 08:36:06 AM Interpretation: Performing Lab: Notes/Report: [facility] ,[facility] For [facility] Urine Culture - [facility] Testing performed at [facility] O:STRAGA Isolated Urine Culture - [facility] Organism Comments Urine Culture - [address] [place] [address] Urine Culture - [facility] Testing performed at [facility] O:STRAGA Isolated Urine Culture - [facility] Organism Comments Urine Culture - [facility] For Report Urine [facility] - [facility] Testing performed at [facility] O:STRAGA Isolated Urine Culture - [facility] Organism Comments Urine Culture - [facility] For Report Urine Culture - [facility] Testing performed at [facility] O:STRAGA Isolated Urine Culture - [facility] Organism Comments Urine Culture - [facility]15,000 CFU/ML Urine Culture - [facility] Testing performed at [facility] O:STRAGA Isolated Urine Culture - [facility] Organism Comments Urine Culture - [facility] Urine Culture - [facility] Testing performed at [facility] O:STRAGA Isolated Urine Culture - [facility] Organism Comments Urine Culture - [facility]* This is a corrected result. * Urine Culture - [facility] Testing performed at [facility] O:STRAGA Isolated Urine Culture - [facility] Organism Comments Urine Culture - [facility] Urine Culture - [facility] Testing performed at [facility] O:STRAGA Isolated Urine Culture - [facility] Organism Comments Urine Culture - [facility] prior result that was reported as final has been changed. 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 Date of Service: 12/18/24 Procedure(s): CT chest wo con Accession Number(s): [id number] cc: JUDI YOUSSEF [address] [address] Patient Name: CONSTATNINO MENDIOLA MRN: [id number] date: 1970 Sex: F Assigned Patient Location: ER Current Patient Location: ER Accession/Order Number: [id number] Exam Date: 12/18/2024 10:04 Report Date: 12/18/2024 10:25 At the request of: NICANOR PISANO MD Procedure: CT abdomen pelvis wo [...] Columba Domínguez M.D.12/18/2024 10:25 AM Dictation Location: [place] [address] Electronically authenticated by: [id number] Date: 12/18/2024 10:25 Dictated By: Columba Domínguez M.D. Signed By: 12/18/24 1028 DD/ 1025 TD/TT: Varnishing Machine Operator:CT abdomen pelvis wo con Reviewed date:12/18/2024 02:35:38 PM Interpretation: Performing Lab: Notes/Report: Source Facility: [place] [address] CT Scan Report Signed Patient: CONSTANTINO MENDIOLA MR#: [id number] : 1970 Acct:[id number] Age/Sex: 54 / F ADM Date: 12/18/24 Loc: ER Attending Dr: Ordering Physician: Nicanor Pisano M.D. Date of Service: 12/18/24 Procedure(s): CT abdomen pelvis wo con Accession Number(s): [id number] cc: JUDI YOUSSEF [place] [address] Patient Name: CONSTANTINO MENDIOLA MRN: [id number] date: 1970 Sex: F Assigned Patient Location: ER Current Patient Location: ER Accession/Order Number: [id number] Exam Date: 12/18/2024 10:04 Report Date: 12/18/2024 10:25 At the request of: NICANOR PISANO MD Procedure: CT abdomen pelvis wo [...] Columba Domínguez M.D.12/18/2024 10:25 AM Dictation Location: [place] [address] Electronically authenticated by: [id number] Y Date: 12/18/2024 10:25 Dictated By: Columba Domínguez M.D. Signed By: 12/18/24 1027 DD/ 1025 TD/TT: Varnishing Machine Operator:CBC AUTO DIFF Reviewed date:01/10/2025 11:54:39 AM Interpretation: Performing Lab: Notes/Report: [facility] ,White Blood Count5.54.0-11.0 10 3/uLRed Blood Count4.204.20-5.40 10 6/uL Jpjtlketqn91.312.0-16.0 g/fURnqqqbfbjh07.836.0-48.0 %Mean Corpuscular Qolamg34.0 81.0-99.0 fLMean Corpuscular Srirfqhyzv17.326.7-34.0 pgMean Corpuscular HGB Conc 32.529.9-35.2 g/dLRed Cell Distribution Width12.711.0-15.0 %Platelet Zbmzi398 150-450 10 3/uLMean Platelet Volume9.49.5-13.5 fLNeutrophils Percent Auto61.5 43.0-75.0 %Lymphocytes Percent Auto27.520.5-60.0 %Monocytes Percent Auto6.61.7- 12.0 %Eosinophils Percent Auto3.30.9-7.0 %Basophils Percent Auto0.70.2-2.0 % Immature Granulocytes Pct Auto0.40.0-0.5 %Neutrophils Absolute Auto3.41.4-6.5 10 3/uLLymphocytes Absolute Auto1.51.2-3.8 10 3/uLMonocytes Absolute Auto0.40.3-0.8 10 3/uLEosinophils Absolute Auto0.20.0-0.7 10 3/uLBasophils Absolute Auto0.00.0- 0.1 10 3/uLImmature Granulocytes Abs Auto0.020.00-0.03 10 3/uLPerforming Lab:see noteML - [facility] LBPROF CHEM 8 (BAS METB) Reviewed date:01/21/2025 01:56:32 PM Interpretation: Performing Lab: Notes/Report: [facility] ,Oylhnb426589-910 mmol/LPotassium4.43.5-5.1 mmol/GOtndduxu82859-195 mmol/LCarbon Gsywlhq80.121.0-32.0 mmol/LAnion Gap11.8Cpvdsaw94706-559 mg/dLBlood Urea Gasosrek37.07.0-18.0 mg/dLCreatinine0.880.55-1.02 mg/dLEstimated GFR ( Milagro>60>=60 mL/min/1.73m 2Estimated GFR (Non- Skylar>60>=60 mL/min/1.73m 2BUN Creatinine Ratio23.9Yxpxucx1.68.5-10.1 mg/dLPerforming Lab:see noteML - [facility] LBECG 12 lead Reviewed date:03/20/2025 10:01:02 AM Interpretation: Performing Lab: Notes/Report: Source Facility: [facility]-[address] [place] [address] [place] [address] Electrocardiograph Report Signed Patient: CONSTANTINO MENDIOLA MR#: [id number] : 1970 Acct:[id number] Age/Sex: 54 / F ADM Date: 03/14/25 Loc: ER Attending Dr: Ordering Physician: Veronica Lama Date of Service: 03/14/25 Procedure(s): ECG 12 lead Accession Number(s): [id number] cc: [facility] Test Date: 2025-03-14 Pat Name: CONSTANTINO MENDIOLA Department: Room: - Gender: Female Hat Mender: : 1970 Requested By: [id number] Order Number: [id number] Reading MD: ALEXANDRO TRACY Measurements Intervals [place] Rate: 63 P: 40 IA: 154 QRS: 36 QRSD: 86 T: 53 QT: 436 QTc: 442 Interpretive Statements 1100 Sinus rhythm 9110 normal ECG Compared to ECG 09/28/2024 15:25:19 Sinus bradycardia no longer present Electronically Signed On 03-19-2025 13:08:09 EDT by ALEXANDRO TRACY Dictated By: Alexandro Tracy M.D. Signed By: 03/19/25 1308 DD/ 13 TD/TT: Varnishing Machine Operator:GLYCOHEMOGLOBIN A1C Reviewed date:03/20/2025 10:39:27 AM Interpretation: Performing Lab: Notes/Report: [facility] ,Glycohemoglobin A1C5.54.5-6.2 % ADA RECOMMENDED LIMIT 4.0 - 6.0 ADA THERAPEUTIC TARGET < 7.0 ACTION SUGGESTED > 7.0 Estimated Average Mckttfc554Hykgookngm Lab:see noteML - [facility] LB TSH Reviewed date:03/20/2025 10:39:27 AM Interpretation: Performing Lab: Notes/Report: [facility] ,Thyroid Stimulating Hormone8.4060.358-3.740 uIU/mLPerforming Lab:see noteML - [facility] LBMM tomosynthesis screening BI Reviewed date:06/21/2025 10:56:02 AM Interpretation: Performing Lab: Notes/Report: Source Facility: [place] [address] [place] [address] Mammography Report Signed Patient: CONSTANTINO MENDIOLA MR#: [id number] : 1970 Acct:[id number] Age/Sex: 55 / F ADM Date: 06/20/25 Loc: MAMMO Attending Dr: JUDI YOUSSEF Ordering Physician: JUDI YOUSSEF Results: Date of Service: 06/20/25 Follow Up: Procedure(s): MM tomosynthesis screening BI Accession Number(s): [id number] cc: JUDI YOUSSEF Patient Name: CONSTANTINO MENDIOLA MR#: [id number] : 1970 Exam Date: 06/20/2025 Ordering Doctor: JUDI YOUSSEF MACHINE DESIGN ENGINEER RADIOLOGY REPORT PROCEDURE: MM TOMOSYNTHESIS SCREENING BI COMPARISON: MM TOMOSYNTHESIS SCREENING BI, 03/13/2024. MG MAMM SCREEN 3D MACARIO CAD, 11/30/2022. MG MAMM SCREEN 3D MACARIO CAD, 11/18/2021. MG MAMM SCREEN MAC[place]IO W CAD, 02/13/2018. INDICATIONS: screening for malignant neoplasm of breast Calculator Name NCI Breast Cancer Risk Assessment Tool 5 Year Breast Cancer Risk 1.00% Lifetime Breast Cancer Risk 7.00% Personal Breast Cancer No Personal Ovarian Cancer No Treatments None Family Cancers Aunt-maternal with breast cancer at age 55; Cousin-maternal with ovarian cancer at age 17; Father with unknown cancer at age 87; Grandfather-maternal with colon cancer at age 84. LOCATION: [facility] BREAST COMPOSITION: There are scattered areas of fibroglandular density. FINDINGS: RIGHT BREAST: No significant suspicious finding. LEFT BREAST: No significant suspicious finding. DIAGNOSTIC CATEGORY 1--NEGATIVE. RECOMMENDATIONS: ROUTINE MAMMOGRAM AND CLINICAL EVALUATION IN 12 MONTHS. Dictated by: Surendra Caesy MD on 06/20/2025 at 11:04 Approved by: Surendra Casey MD on 06/20/2025 at 11:11 Dictated By: Surendra Casey M.D. Signed By: 06/20/25 1113 DD/ 1112 TD/TT: Varnishing Machine Operator:UA (Urinalysis, Dipstix only - w/o micro) Reviewed date:02/07/2025 10:34:26 AM Interpretation: Performing Lab: Notes/Report: COLORyellowYellow - Melissa -CLARITYclearClear - ClearGLUCOSE-0 - 133 MG/DLALBUMIN -NEG - NEG MG/DLBILIRUBIN-NEG - NEG MG/DLSPECIFIC GRAVITY1.0101.001 - 1.035 KETONES-NEG - NEG MG/DLBLOOD, URtracePH, UR55 - 9UROBILNOGEN-0.2 - 1 MG/DL NITRITE-NEG - NEGESTERASE (PETER)+NEG - NEG MG/DLMAGNESIUM Reviewed date:09/07/2024 11:32:59 AM Interpretation: Performing Lab: Notes/Report: [facility] ,Magnesium2.11.8-2.4 mg/dLPerforming Lab:see noteML - [facility] LB CBC AUTO DIFF Reviewed date:08/28/2024 08:57:50 AM Interpretation: Performing Lab: Notes/Report: [facility] ,White Blood Count8.44.0-11.0 10 3/uLRed Blood Count4.004.20-5.40 10 6/uL Taepvwbhde41.912.0-16.0 g/gLSiioawfwos24.836.0-48.0 %Mean Corpuscular Hqnbfp44.0 81.0-99.0 fLMean Corpuscular Biusfhyvub59.826.7-34.0 pgMean Corpuscular HGB Conc 32.329.9-35.2 g/dLRed Cell Distribution Width13.011.0-15.0 %Platelet Irjab809 150-450 10 3/uLMean Platelet Volume9.09.5-13.5 fLNeutrophils Percent Auto63.5 43.0-75.0 %Lymphocytes Percent Auto26.320.5-60.0 %Monocytes Percent Auto6.31.7- 12.0 %Eosinophils Percent Auto3.40.9-7.0 %Basophils Percent Auto0.40.2-2.0 % Immature Granulocytes Pct Auto0.10.0-0.5 %Neutrophils Absolute Auto5.31.4-6.5 10 3/uLLymphocytes Absolute Auto2.21.2-3.8 10 3/uLMonocytes Absolute Auto0.50.3-0.8 10 3/uLEosinophils Absolute Auto0.30.0-0.7 10 3/uLBasophils Absolute Auto0.00.0- 0.1 10 3/uLImmature Granulocytes Abs Auto0.010.00-0.03 10 3/uLPerforming Lab:see noteML - [facility] LBPROF CHEM 8 (BAS METB) Reviewed date:08/28/2024 08:57:50 AM Interpretation: Performing Lab: Notes/Report: [facility] ,Cybgao026438-047 mmol/LPotassium3.93.5-5.1 mmol/XUwqqgqcs09651-792 mmol/LCarbon Kxtruvp99.921.0-32.0 mmol/LAnion Gap13.4Nssolbz0265-096 mg/dLBlood Urea Nitrogen 13.07.0-18.0 mg/dLCreatinine0.970.55-1.02 mg/dLEstimated GFR ( Milagro>60 >=60 mL/min/1.73m 2Estimated GFR (Non- Ame60>=60 mL/min/1.73m 2BUN Creatinine Ratio13.9Yifcblq9.98.5-10.1 mg/dLPerforming Lab:see note - [facility] LBTroponin I High Sensitivity Reviewed date:08/28/2024 08:57:50 AM Interpretation: Performing Lab: Notes/Report: [facility] ,Troponin I High Lmxmowpdbky25.74.0-51.3 pg/mL CUT-OFF POINTS HAVE BEEN ESTABLISHED BASED ON THE FOURTH UNIVERSAL DEFINITION OF MYOCARDIAL INFARCTION. THE UPPER REFERENCE LIMIT (URL) OF TROPONIN, DEFINED THE 99TH PERCENTILE OF cTnI DISTRIBUTION IN A REFERENCE POPULATION, HAS BEEN CONFIRMED THE DECISION THRESHOLD FOR [place] DIAGNOSIS. 99TH PERCENTILE = 51.4 PG/ML NOTE: HIGH-SENSITIVITY TROPONIN ASSAY IS NOT INTENDED TO BE USED IN ISOLATION BUT SHOULD BE INTERPRETED IN CONJUNCTION WITH OTHER DIAGNOSTIC AND CLINICAL INFORMATION. Performing Lab:see note - [facility] LBECG 12 lead Reviewed date:08/28/2024 08:57:50 AM Interpretation: Performing Lab: Notes/Report: Source Facility: [facility]-[address] [place] [address] Electrocardiograph Report Signed Patient: CONSTANTINO MENDIOLA MR#: [id number] : 1970 Acct:[id number] Age/Sex: 54 / F ADM Date: 08/28/24 Loc: ER Attending Dr: Ordering Physician: Zeferino Armas M.D. Date of Service: 08/28/24 Procedure(s): ECG 12 lead Accession Number(s): [id number] cc: [facility] Test Date: 2024-08-28 Pat Name: CONSTANTINO MENDIOLA Department: Room: - Gender: Female Hat Mender: : 1970 Requested By: JUDI YOUSSEF Order Number: [id number] Reading MD: JUAREZ CRUZ Measurements Intervals [place] Rate: 84 P: 37 IA: 140 QRS: 26 QRSD: 90 T: 45 QT: 392 QTc: 433 Interpretive Statements 1100 Sinus rhythm 9110 normal ECG Compared to ECG 04/13/2024 14:58:17 No significant changes Electronically Signed On 08-28-2024 6:55:52 EST by JUAREZ CRUZ Dictated By: Juarez Cruz D.O. Signed By: 08/28/24 0656 DD/ 0411 TD/TT: Varnishing Machine Operator:XR chest 1V Reviewed date:08/28/2024 08:57:50 AM Interpretation: Performing Lab: Notes/Report: Source Facility: [place] [address] XRay Report Signed Patient: CONSTANTINO MENDIOLA MR#: [id number] : 1970 Acct:[id number] Age/Sex: 54 / F ADM Date: 08/28/24 Loc: ER Attending Dr: Ordering Physician: Zeferino Armas M.D. Date of Service: 08/28/24 Procedure(s): XR chest 1V Accession Number(s): [id number] cc: JUDI YOUSSEF ; Zeferino Armas M.D. [place] [address] Patient Name: CONSTANTINO MENDIOLA MRN: [id number] date: 1970 Sex: F Assigned Patient Location: ER Current Patient Location: ER Accession/Order Number: [id number] Exam Date: 08/28/2024 04:28 Report Date: 08/28/2024 [...] D.O. Signed By: 08/28/24529 DD/ 6 TD/TT: Varnishing Machine Operator:XR acute abdomen series Reviewed date:08/28/2024 08:57:50 AM Interpretation: Performing Lab: Notes/Report: Source Facility: [place] [address] XRay Report Signed Patient: CONSTANTINO MENDIOLA MR#: [id number] : 1970 Acct:[id number] Age/Sex: 54 / F ADM Date: 08/28/24 Loc: ER Attending Dr: Ordering Physician: Zeferino Armas M.D. Date of Service: 08/28/24 Procedure(s): XR acute abdomen series Accession Number(s): [id number] cc: JUDI YOUSSEF ; Zeferino Armas M.D. [place] [address] Patient Name: CONSTANTINO MENDIOLA MRN: [id number] date: 1970 Sex: F Assigned Patient Location: ER Current Patient Location: ER Accession/Order Number: [id number] Exam Date: 08/28/2024 05:00 Report Date: 08/28/2024 [...] Mihai De La Fuente D.O. Signed By: 08/28/24 0534 DD/ 0532 TD/TT: Varnishing Machine Operator:MAGNESIUM Reviewed date:09/03/2024 08:18:59 AM Interpretation: Performing Lab: Notes/Report: [facility] ,Magnesium1.91.8-2.4 mg/dLPerforming Lab:see noteML - [facility] LB PROF CHEM 8 (BAS METB) Reviewed date:09/03/2024 08:18:59 AM Interpretation: Performing Lab: Notes/Report: [facility] ,Cibtbt520902-763 mmol/LPotassium4.43.5-5.1 mmol/DIvbfgyvq68592-749 mmol/LCarbon Wqypuss68.921.0-32.0 mmol/LAnion Gap14.5Qmhjrai22891-582 mg/dLBlood Urea Ksgszsez85.07.0-18.0 mg/dLCreatinine0.950.55-1.02 mg/dLEstimated GFR ( Milagro>60>=60 mL/min/1.73m 2Estimated GFR (Non- Skylar>60>=60 mL/min/1.73m 2BUN Creatinine Ratio15.7Grutdjq5.48.5-10.1 mg/dLPerforming Lab:see noteML - [facility] LBUS renal BI Reviewed date:09/17/2024 10:44:15 AM Interpretation: Performing Lab: Notes/Report: Source Facility: [facility]-[address] [place] [address] Ultrasound Report Signed Patient: CONSTANTINO MENDIOLA MR#: [id number] : 1970 Acct:[id number] Age/Sex: 54 / F ADM Date: 09/14/24 Loc: US Attending Dr: JUDI YOUSSEF Ordering Physician: JUDI YOUSSEF Date of Service: 09/14/24 Procedure(s): US renal BI Accession Number(s): [id number] cc: JUDI YOUSSEF [place] [address] Patient Name: CONSTANTINO MENDIOLA MRN: [id number] date: 1970 Sex: F Assigned Patient Location: US Current Patient Location: [place] Accession/Order Number: [id number] Exam Date: 09/14/2024 08:40 Report Date: 09/14/2024 [...] 2. Nonobstructing left nephrolithiasis. Electronically authenticated by: SAMUEL HORTON Date: 09/14/2024 09:21 Dictated By: Samuel Horton M.D. Signed By: 09/14/24923 DD/ 0 TD/TT: Varnishing Machine Operator:CBC AUTO DIFF Reviewed date:10/01/2024 12:35:56 PM Interpretation: Performing Lab: Notes/Report: [facility] ,White Blood Count9.44.0-11.0 10 3/uLRed Blood Count4.694.20-5.40 10 6/uL Ofpchezlyu75.812.0-16.0 g/gKKltdngobrp58.936.0-48.0 %Mean Corpuscular Zpokxc97.3 81.0-99.0 fLMean Corpuscular Mbyvaljtcf54.426.7-34.0 pgMean Corpuscular HGB Conc 32.929.9-35.2 g/dLRed Cell Distribution Width13.011.0-15.0 %Platelet Belcm594 150-450 10 3/uLMean Platelet Volume9.29.5-13.5 fLNeutrophils Percent Auto72.3 43.0-75.0 %Lymphocytes Percent Auto16.220.5-60.0 %Monocytes Percent Auto9.91.7- 12.0 %Eosinophils Percent Auto0.00.9-7.0 %Basophils Percent Auto0.10.2-2.0 % Immature Granulocytes Pct Auto1.50.0-0.5 %Neutrophils Absolute Auto6.81.4-6.5 10 3/uLLymphocytes Absolute Auto1.51.2-3.8 10 3/uLMonocytes Absolute Auto0.90.3-0.8 10 3/uLEosinophils Absolute Auto0.00.0-0.7 10 3/uLBasophils Absolute Auto0.00.0- 0.1 10 3/uLImmature Granulocytes Abs Auto0.140.00-0.03 10 3/uLPerforming Lab:see noteML - [facility] LBCPK Reviewed date:10/01/2024 12:35:56 PM Interpretation: Performing Lab: Notes/Report: [facility] ,Creatine Cxmqfk4857-155 U/LPerforming Lab:see noteML - [facility] LB LACTATE or LACTIC ACID Reviewed date:10/01/2024 12:35:56 PM Interpretation: Performing Lab: Notes/Report: [facility] ,Lactate/Lactic Acid2.40.4-2.0 mmol/LRESULTS CALLED TO EUN LEIGH Performing Lab:see noteML - [facility] LBPROF 14(COMP METB) Reviewed date:10/01/2024 12:35:56 PM Interpretation: Performing Lab: Notes/Report: [facility] ,Ctcype534461-411 mmol/LPotassium3.43.5-5.1 mmol/JGsqzesyl16689-840 mmol/LCarbon Mayqbmi26.921.0-32.0 mmol/LAnion Gap14.4Szihrwg85310-086 mg/dLBlood Urea Cghfdqlf52.07.0-18.0 mg/dLCreatinine1.110.55-1.02 mg/dLEstimated GFR ( Milagro>60>=60 mL/min/1.73m 2Estimated GFR (Non- Ame51>=60 mL/min/1.73m 2 BUN Creatinine Ratio36.4Cuwibay4.28.5-10.1 mg/dLBilirubin Total0.30.2-1.0 mg/dL Aspartate Amino Gijlhkfykmy3023-64 U/LAlanine Zadzgdwxjzzserlk9320-46 U/L Alkaline Twitbfwtxdk96878-632 U/LTotal Protein6.76.4-8.2 g/dLAlbumin Level3.1 3.4-5.0 g/dLGlobulin3.6Albumin Globulin Ratio0.9Performing Lab:see noteML - [facility] LBTroponin I High Sensitivity Reviewed date:10/01/2024 12:35:56 PM Interpretation: Performing Lab: Notes/Report: [facility] ,Troponin I High Cufvpkbxozj84.64.0-51.3 pg/mL CUT-OFF POINTS HAVE BEEN ESTABLISHED BASED ON THE FOURTH UNIVERSAL DEFINITION OF MYOCARDIAL INFARCTION. THE UPPER REFERENCE LIMIT (URL) OF TROPONIN, DEFINED THE 99TH PERCENTILE OF cTnI DISTRIBUTION IN A REFERENCE POPULATION, HAS BEEN CONFIRMED THE DECISION THRESHOLD FOR [place] DIAGNOSIS. 99TH PERCENTILE = 51.4 PG/ML NOTE: HIGH-SENSITIVITY TROPONIN ASSAY IS NOT INTENDED TO BE USED IN ISOLATION BUT SHOULD BE INTERPRETED IN CONJUNCTION WITH OTHER DIAGNOSTIC AND CLINICAL INFORMATION. Performing Lab:see noteML - [facility] LBUrine Culture, Routine Reviewed date:10/02/2024 10:29:54 AM Interpretation: Performing Lab: Notes/Report: [facility] ,Urine Culture, RoutineSee Below For Report Urine Culture, Routine Organism: Escherichia coli. : O:ESCHCO Isolated Organism: 1.1 Antibiotic Interpretation RHONDA Status Urine Culture, Routine*ABNORMAL* Urine Culture, Routine Organism: Escherichia coli. : O:ESCHCO Isolated Organism: 1.1 Antibiotic Interpretation RHONDA Status Urine Culture, RoutineGreater than 100,000 colony forming units per mL Urine Culture, Routine Organism: Escherichia coli. : O:ESCHCO Isolated Organism: 1.1 Antibiotic Interpretation RHONDA Status Urine Culture, RoutineEscherichia coli. Urine Culture, Routine Organism: Escherichia coli. : O:ESCHCO Isolated Organism: 1.1 Antibiotic Interpretation RHONDA Status Urine Culture, RoutineOrganism: Escherichia coli. : Urine Culture, Routine Organism: Escherichia coli. : O:ESCHCO Isolated Organism: 1.1 Antibiotic Interpretation RHONDA Status Urine Culture, Routine*ABNORMAL* Urine Culture, Routine Organism: Escherichia coli. : O:ESCHCO Isolated Organism: 1.1 Antibiotic Interpretation RHONDA Status Urine Culture, RoutineCefazolin <=4 ug/mL Urine Culture, Routine Organism: Escherichia coli. : O:ESCHCO Isolated Organism: 1.1 Antibiotic Interpretation RHONDA Status Urine Culture, RoutineCefazolin with an RHONDA <=16 predicts susceptibility Urine Culture, Routine Organism: Escherichia coli. : O:ESCHCO Isolated Organism: 1.1 Antibiotic Interpretation RHONDA Status Urine Culture, Routineto the oral agents cefaclor, cefdinir, cefpodoxime, Urine Culture, Routine Organism: Escherichia coli. : O:ESCHCO Isolated Organism: 1.1 Antibiotic Interpretation RHONDA Status Urine Culture, Routinecefprozil, cefuroxime, cephalexin, and loracarbef when Urine Culture, Routine Organism: Escherichia coli. : O:ESCHCO Isolated Organism: 1.1 Antibiotic Interpretation RHONDA Status Urine Culture, Routineused for therapy of uncomplicated urinary tract Urine Culture, Routine Organism: Escherichia coli. : O:ESCHCO Isolated Organism: 1.1 Antibiotic Interpretation RHONDA Status Urine Culture, Routineinfections due to E. coli, Klebsiella pneumoniae, and Urine Culture, Routine Organism: Escherichia coli. : O:ESCHCO Isolated Organism: 1.1 Antibiotic Interpretation RHONDA Status Urine Culture, RoutineProteus mirabilis. Urine Culture, Routine Organism: Escherichia coli. : O:ESCHCO Isolated Organism: 1.1 Antibiotic Interpretation RHONDA Status Urine Culture, RoutineGreater than 100,000 colony forming units per mL Urine Culture, Routine Organism: Escherichia coli. : O:ESCHCO Isolated Organism: 1.1 Antibiotic Interpretation RHONDA Status Urine Culture, RoutineSee Below For Report Urine Culture, Routine Organism: Escherichia coli. : O:ESCHCO Isolated Organism: 1.1 Antibiotic Interpretation RHONDA Status Urine Culture, RoutinePerformed at: - [facility], Routine Organism: Escherichia coli. : O:ESCHCO Isolated Organism: 1.1 Antibiotic Interpretation RHONDA Status Urine Culture, [id number] [place], [place] [id number] Urine Culture, Routine Organism: Escherichia coli. : O:ESCHCO Isolated Organism: 1.1 Antibiotic Interpretation RHONDA Status Urine Culture, RoutineLab Director: Shawn Louis PhD, Phone: [phone] Urine Culture, Routine Organism: Escherichia coli. : O:ESCHCO Isolated Organism: 1.1 Antibiotic Interpretation RHONDA Status Urine Culture, RoutineSee Below For Report Urine Culture, Routine Organism: Escherichia coli. : O:ESCHCO Isolated Organism: 1.1 Antibiotic Interpretation RHONDA Status Urine Culture, RoutineAMOXICILLIN/CLAVULANIC ACID S F Urine Culture, Routine Organism: Escherichia coli. : O:ESCHCO Isolated Organism: 1.1 Antibiotic Interpretation RHONDA Status Urine Culture, RoutineAmpicillin S F Urine Culture, Routine Organism: Escherichia coli. : O:ESCHCO Isolated Organism: 1.1 Antibiotic Interpretation RHONDA Status Urine Culture, RoutineCefepime S F Urine Culture, Routine Organism: Escherichia coli. : O:ESCHCO Isolated Organism: 1.1 Antibiotic Interpretation RHONDA Status Urine Culture, RoutineCeftriaxone S F Urine Culture, Routine Organism: Escherichia coli. : O:ESCHCO Isolated Organism: 1.1 Antibiotic Interpretation RHONDA Status Urine Culture, RoutineCefuroxime S F Urine Culture, Routine Organism: Escherichia coli. : O:ESCHCO Isolated Organism: 1.1 Antibiotic Interpretation RHONDA Status Urine Culture, RoutineCiprofloxacin S F Urine Culture, Routine Organism: Escherichia coli. : O:ESCHCO Isolated Organism: 1.1 Antibiotic Interpretation RHONDA Status Urine Culture, RoutineErtapenem S F Urine Culture, Routine Organism: Escherichia coli. : O:ESCHCO Isolated Organism: 1.1 Antibiotic Interpretation RHONDA Status Urine Culture, RoutineGentamicin S F Urine Culture, Routine Organism: Escherichia coli. : O:ESCHCO Isolated Organism: 1.1 Antibiotic Interpretation RHONDA Status Urine Culture, RoutineImipenem S F Urine Culture, Routine Organism: Escherichia coli. : O:ESCHCO Isolated Organism: 1.1 Antibiotic Interpretation RHONDA Status Urine Culture, RoutineLevofloxacin S F Urine Culture, Routine Organism: Escherichia coli. : O:ESCHCO Isolated Organism: 1.1 Antibiotic Interpretation RHONDA Status Urine Culture, RoutineMeropenem S F Urine Culture, Routine Organism: Escherichia coli. : O:ESCHCO Isolated Organism: 1.1 Antibiotic Interpretation RHONDA Status Urine Culture, RoutineNitrofurantoin S F Urine Culture, Routine Organism: Escherichia coli. : O:ESCHCO Isolated Organism: 1.1 Antibiotic Interpretation RHONDA Status Urine Culture, RoutineTetracycline S F Urine Culture, Routine Organism: Escherichia coli. : O:ESCHCO Isolated Organism: 1.1 Antibiotic Interpretation RHONDA Status Urine Culture, RoutineTobramycin S F Urine Culture, Routine Organism: Escherichia coli. : O:ESCHCO Isolated Organism: 1.1 Antibiotic Interpretation RHONDA Status Urine Culture, RoutineTrimethoprim/Sulfamethoxazole S F Urine Culture, Routine Organism: Escherichia coli. : O:ESCHCO Isolated Organism: 1.1 Antibiotic Interpretation HRONDA Status Urine Culture, RoutinePiperacillin/Tazobactam S F Urine Culture, Routine Organism: Escherichia coli. : O:ESCHCO Isolated Organism: 1.1 Antibiotic Interpretation RHONDA Status Performing Lab:see note LC - [facility] LB SEE REPORT - Self Propelled Hot Mix Roller Operator Id information not found for OBX-specific film producer legend UA Micro, reflex to culture Reviewed date:10/01/2024 12:35:56 PM Interpretation: Performing Lab: Notes/Report: [facility] ,Color UrineYELLOWYELLOWClarity UrineCLEARCLEARSpecific [place] Urine1.025 1.005-1.025pH Urine6.05.0-9.0Protein UrineTRACENEG/TRACE mg/dLGlucose Urine UA NEGATIVENEGATIVE mg/dLBilirubin UrineNEGATIVENEGATIVEKetones UrineNEGATIVE NEGATIVE mg/dLBlood UrineNEGATIVENEGATIVENitrite UrinePOSITIVENEGATIVE Urobilinogen Urine0.20.2-1.0 EU/dLLeukocyte Esterase UrineTRACENEGATIVEWBC Urine 5-10NONE SEEN #/HPFRBC UrineNONE SEEN0-2 #/HPFBacteria UrineMODERATENONE SEEN #/HPFMucus UrineNONE SEENNONE SEENSquamous Epithelial Cell UrineFEWNONE/RARE #/LPFCrystals Seen?None SeenNone Seen #/HPFCast Seen?NONE SEENNONE SEEN #/LPF Urine Culture IndicatedYESPerforming Lab:see noteML - [facility] LB ECG 12 lead Reviewed date:10/01/2024 12:35:56 PM Interpretation: Performing Lab: Notes/Report: Source Facility: [place] [address] Electrocardiograph Report Signed Patient: CONSTANTINO MENDIOLA MR#: [id number] : 1970 Acct:[id number] Age/Sex: 54 / F ADM Date: 09/28/24 Loc: ER Attending Dr: Ordering Physician: Candy Wilson Date of Service: 09/28/24 Procedure(s): ECG 12 lead Accession Number(s): [id number] cc: [facility] Test Date: 2024-09-28 Pat Name: CONSTANTINO MENDIOLA Department: Room: - Gender: Female Hat Mender: : 1970 Requested By: 0929 Order Number: [id number] Reading MD: MAILE IZAGUIRRE Measurements Intervals [place] Rate: 49 P: 37 IA: 134 QRS: 19 QRSD: 98 T: 71 QT: 488 QTc: 457 Interpretive Statements 1130 Sinus bradycardia 9150 abnormal ECG Compared to ECG 08/28/2024 04:11:23 Left ventricular hypertrophy now present Early repolarization now present Sinus rhythm no longer present Electronically Signed On 10-01-2024 9:22:22 EST by MAILE IZAGUIRRE Dictated By: Maile Izaguirre M.D. Signed By: 10/01/24 0922 DD/ 1525 TD/TT: Varnishing Machine Operator:XR chest 1V Reviewed date:10/01/2024 12:35:56 PM Interpretation: Performing Lab: Notes/Report: Source Facility: [place] [address] [place] [address] XRay Report Signed Patient: CONSTANTINO MENDIOLA MR#: [id number] : 1970 Acct:[id number] Age/Sex: 54 / F ADM Date: 09/28/24 Loc: ER Attending Dr: Ordering Physician: Candy Wilson Date of Service: 09/28/24 Procedure(s): XR chest 1V Accession Number(s): [id number] cc: JUDI YOUSSEF ; Candy Wilson [place] [address] Patient Name: CONSTANTINO MENDIOLA MRN: [id number] date: 1970 Sex: F Assigned Patient Location: ER Current Patient Location: ER Accession/Order Number: [id number] Exam Date: 09/28/2024 15:24 Report Date: 09/28/2024 15:48 At the request of: CANDY WILSON Procedure: XR chest 1V EXAM: XR [...] Signed By: 09/28/24 1550 DD/ 1548 TD/TT: Varnishing Machine Operator:VITAMIN D 25 [place] Reviewed date:11/27/2024 03:16:31 PM Interpretation: Performing Lab: Notes/Report: [facility] ,Vitamin D40.2 <20 ng/mL Vit D deficient 20-<30 ng/mL Vit D insufficient 30-100 ng/mL Vit D sufficient >100 ng/mL Potential Toxicity Performing Lab:see noteML - [facility] LBVitamin B12 Reviewed date:11/28/2024 11:53:15 AM Interpretation: Performing Lab: Notes/Report: [facility] ,Vitamin [id number] pg/mL Performed at: [facility] [address] [id number] Software Engineer Web Services: Shawn Louis PhD, Phone: [phone] Performing Lab:[facility] noteAST[facility] LBDRUG SCREEN RAPID (URINE) Reviewed date:12/18/2024 02:35:37 PM Interpretation: Performing Lab: Notes/Report: [facility] ,Cannabinoid Screen UrineNEGATIVENEGATIVEPhencyclidine Screen UrineNEGATIVE NEGATIVECocaine Screen UrineNEGATIVENEGATIVEMethamphetamines Screen Urine NEGATIVENEGATIVEOpiate Screen UrineNEGATIVENEGATIVEAmphetamine Screen Urine NEGATIVENEGATIVEBenzodiazepines Screen UrineNEGATIVENEGATIVETricyclic Antidepressant UrineNEGATIVENEGATIVEMethadone Screen UrineNEGATIVENEGATIVE Barbiturates Screen UrineNEGATIVENEGATIVEOxycodone Screen UrineNEGATIVENEGATIVE Buprenorphine Screen UrineNEGATIVENEGATIVE DRUG CLASS TEST SYSTEM CUT-OFF CONCENTRATIONS ARE FOLLOWS: AMP (Amphetamine): 500 ng/mL BAR (Barbiturates): 200 ng/mL BZO (Benzodiazepines): 150 ng/mL BUP (Buprenorphine): 10 ng/mL CHANTAL (Cocaine): 150 ng/mL mAMP (Methamphetamine): 500 ng/mL MTD (Methadone): 200 ng/mL OPI (Opiates): 100 ng/mL OXY (Oxycodone): 100 ng/mL PCP (Phencyclidine): 25 ng/mL THC (Cannabinoids): 50 ng/mL TCA (Trycyclic Antidepressants): 300 ng/mL Performing Lab:see noteML - [facility] LBLIPASE Reviewed date:12/18/2024 02:35:37 PM Interpretation: Performing Lab: Notes/Report: [facility] ,Xjrdar62.016.0-77.0 U/LPerforming Lab:see note - [facility] LB LIVER PROFILE Reviewed date:12/18/2024 02:35:37 PM Interpretation: Performing Lab: Notes/Report: [facility] ,Bilirubin Total0.40.2-1.0 mg/dLBilirubin Direct0.10.0-0.2 mg/dLAspartate Amino Phevymeqgzp2107-28 U/LAlanine Anedcwauembfmgbk1326-23 U/LAlkaline Qnpdpwgkukw363 46-116 U/LTotal Protein6.66.4-8.2 g/dLAlbumin Level3.43.4-5.0 g/dLGlobulin3.2 Albumin Globulin Ratio1.1Performing Lab:see noteAs[facility] LB PROF CHEM 8 (BAS METB) Reviewed date:12/18/2024 02:35:37 PM Interpretation: Performing Lab: Notes/Report: [facility] ,Rletov498803-841 mmol/LPotassium3.73.5-5.1 mmol/HPbmpubmq03841-736 mmol/LCarbon Orciaqy79.221.0-32.0 mmol/LAnion Gap8.2Bhywgzw10914-474 mg/dLBlood Urea Nitrogen 14.07.0-18.0 mg/dLCreatinine0.760.55-1.02 mg/dLEstimated GFR ( Milagro>60 >=60 mL/min/1.73m 2Estimated GFR (Non- Skylar>60>=60 mL/min/1.73m 2BUN Creatinine Ratio18.5Chjxwpe6.08.5-10.1 mg/dLPerforming Lab:see note - [facility] LBRHEUMATOID FACTOR Reviewed date:12/20/2024 11:55:33 AM Interpretation: Performing Lab: Notes/Report: [facility] ,Rheumatoid Factor (RF)<10.0<14.0 IU/mL Performed at: - [address] [id number] Software Engineer Web Services: Shawn Louis PhD, Phone: [phone] Performing Lab:see note - [facility] LBUA (CLEAN or CATCH) SENIOR SCIENCE CONSULTANT or MICRO IF IND. Reviewed date:12/18/2024 02:35:37 PM Interpretation: Performing Lab: Notes/Report: [facility] ,Color UrineLT. YELLOWYELLOWClarity UrineCLEARCLEARSpecific [place] Urine1.020 1.005-1.025pH Urine6.05.0-9.0Protein UrineNEGATIVENEG/TRACE mg/dLGlucose Urine UANEGATIVENEGATIVE mg/dLBilirubin UrineNEGATIVENEGATIVEKetones UrineNEGATIVE NEGATIVE mg/dLBlood UrineTRACE-INEGATIVENitrite UrineNEGATIVENEGATIVE Urobilinogen Urine0.20.2-1.0 EU/dLLeukocyte Esterase UrineMODERATENEGATIVEUrine Microscopic IndicatedYESPerforming Lab:see note - [facility] LB URINE MICROSCOPIC ONLY Reviewed date:12/18/2024 02:35:38 PM Interpretation: Performing Lab: Notes/Report: [facility] ,WBC Urine5-10NONE SEEN #/HPFRBC Urine2-50-2 #/HPFBacteria UrineTRACENONE SEEN #/HPFMucus UrineTRACENONE SEENSquamous Epithelial Cell UrineFEWNONE/RARE #/LPF Crystals Seen?None SeenNone Seen #/HPFCast Seen?NONE SEENNONE SEEN #/LPFUrine Culture IndicatedYES-FRMCPerforming Lab:see note - [facility] LBANA w/Reflex Reviewed date:12/20/2024 11:55:33 AM Interpretation: Performing Lab: Notes/Report: [facility] ,PEPPER DirectNegativeNegative Performed at: CB - [facility] [address] [id number] Software Engineer Web Services: Shawn Louis PhD, Phone: [phone] Performing Lab:see note - [facility] LBPROF 14(COMP METB) Reviewed date:01/10/2025 11:54:39 AM Interpretation: Performing Lab: Notes/Report: [facility] ,Refbou241325-946 mmol/LPotassium3.83.5-5.1 mmol/FYnkbevyx53336-827 mmol/LCarbon Mruubcn09.521.0-32.0 mmol/LAnion Gap10.1Xjjzkiu0516-043 mg/dLBlood Urea Nitrogen 15.07.0-18.0 mg/dLCreatinine0.850.55-1.02 mg/dLEstimated GFR ( Milagro>60 >=60 mL/min/1.73m 2Estimated GFR (Non- Skylar>60>=60 mL/min/1.73m 2BUN Creatinine Ratio17.1Fdohjeh4.18.5-10.1 mg/dLBilirubin Total0.30.2-1.0 mg/dL Aspartate Amino Dsfsagngupw9149-96 U/LAlanine Iraenuarzlntnhgb6267-13 U/L Alkaline Zfuddpdtaea90153-302 U/LTotal Protein6.56.4-8.2 g/dLAlbumin Level3.4 3.4-5.0 g/dLGlobulin3.1Albumin Globulin Ratio1.1Performing Lab:see noteML - [facility] LBLevetiracetam (Keppra), S Reviewed date:01/11/2025 12:15:06 PM Interpretation: Performing Lab: Notes/Report: [facility] ,Levetiracetam (Heavenra), S25.110.0-40.0 ug/mL Performed at: [address] [id number] Software Engineer Web Services: Suresh Carranza MD, Phone: [phone] Performing Lab:see note - [facility] LBCBC AUTO DIFF Reviewed date:01/21/2025 01:56:32 PM Interpretation: Performing Lab: Notes/Report: [facility] ,White Blood Count6.64.0-11.0 10 3/uLRed Blood Count3.884.20-5.40 10 6/uL Yqaprirfjo28.412.0-16.0 g/dCAuhoydjgqr50.636.0-48.0 %Mean Corpuscular Tiplbq70.8 81.0-99.0 fLMean Corpuscular Swnsnselxs22.426.7-34.0 pgMean Corpuscular HGB Conc 32.029.9-35.2 g/dLRed Cell Distribution Width12.911.0-15.0 %Platelet Crxdk867 150-450 10 3/uLMean Platelet Volume9.49.5-13.5 fLNeutrophils Percent Auto69.1 43.0-75.0 %Lymphocytes Percent Auto21.420.5-60.0 %Monocytes Percent Auto6.71.7- 12.0 %Eosinophils Percent Auto2.30.9-7.0 %Basophils Percent Auto0.50.2-2.0 % Immature Granulocytes Pct Auto0.00.0-0.5 %Neutrophils Absolute Auto4.51.4-6.5 10 3/uLLymphocytes Absolute Auto1.41.2-3.8 10 3/uLMonocytes Absolute Auto0.40.3-0.8 10 3/uLEosinophils Absolute Auto0.20.0-0.7 10 3/uLBasophils Absolute Auto0.00.0- 0.1 10 3/uLImmature Granulocytes Abs Auto0.000.00-0.03 10 3/uLPerforming Lab:see noteML - [facility] LBTroponin I High Sensitivity Reviewed date:03/15/2025 01:33:25 PM Interpretation: Performing Lab: Notes/Report: [facility] ,Troponin I High Qqfimbsybrc11.04.0-51.3 pg/mL CUT-OFF POINTS HAVE BEEN ESTABLISHED BASED ON THE FOURTH UNIVERSAL DEFINITION OF MYOCARDIAL INFARCTION. THE UPPER REFERENCE LIMIT (URL) OF TROPONIN, DEFINED THE 99TH PERCENTILE OF cTnI DISTRIBUTION IN A REFERENCE POPULATION, HAS BEEN CONFIRMED THE DECISION THRESHOLD FOR [place] DIAGNOSIS. 99TH PERCENTILE = 51.4 PG/ML NOTE: HIGH-SENSITIVITY TROPONIN ASSAY IS NOT INTENDED TO BE USED IN ISOLATION BUT SHOULD BE INTERPRETED IN CONJUNCTION WITH OTHER DIAGNOSTIC AND CLINICAL INFORMATION. Performing Lab:see noteML - [facility] LBCT abdomen pelvis w con Reviewed date:03/18/2025 09:31:59 AM Interpretation: Performing Lab: Notes/Report: Source Facility: [facility]-[address] [place] [address] [place] [address] CT Scan Report Signed Patient: CONSTANTINO MENDIOLA MR#: [id number] : 1970 Acct:[id number] Age/Sex: 54 / F ADM Date: 03/14/25 Loc: ER Attending Dr: Ordering Physician: Veronica Lama Date of Service: 03/14/25 Procedure(s): CT abdomen pelvis w con Accession Number(s): [id number] cc: JUDI YOUSSEF [address] [place] [id number] Patient Name: CONSTANTINO MENDIOLA MRN: [id number] date: 1970 Sex: F Assigned Patient Location: ER Current Patient Location: ED.MAIN Accession/Order Number: [id number] Exam Date: 03/14/2025 20:59 Report Date: 03/14/2025 21:06 At the request of: VERONICA HAQ Procedure: CT abdomen pelvis w con [...] GI: Hiatal hernia with adjacent postsurgical changes. Bcvu-gi-rhvvtjef retained stool within colon. No bowel obstruction. [...] Casey M.D. 03/14/2025 9:06 PM Dictation Location: [place] [address] Electronically authenticated by: [id number] Y Date: 03/14/2025 21:06 Dictated By: Surendra Casey M.D. Signed By: 03/14/252108 DD/ 05 TD/TT: Varnishing Machine Operator:CBC AUTO DIFF Reviewed date:03/20/2025 10:39:27 AM Interpretation: Performing Lab: Notes/Report: [facility] ,White Blood Count5.34.0-11.0 10 3/uLRed Blood Count4.304.20-5.40 10 6/uL Bmzukpveuj54.412.0-16.0 g/aRBsabusilhd41.836.0-48.0 %Mean Corpuscular Fwixyv68.2 81.0-99.0 fLMean Corpuscular Rlwglqoifp48.826.7-34.0 pgMean Corpuscular HGB Conc 32.029.9-35.2 g/dLRed Cell Distribution Width12.811.0-15.0 %Platelet Zbqky495 150-450 10 3/uLMean Platelet Volume9.19.5-13.5 fLNeutrophils Percent Auto53.3 43.0-75.0 %Lymphocytes Percent Auto34.320.5-60.0 %Monocytes Percent Auto6.31.7- 12.0 %Eosinophils Percent Auto5.30.9-7.0 %Basophils Percent Auto0.60.2-2.0 % Immature Granulocytes Pct Auto0.20.0-0.5 %Neutrophils Absolute Auto2.81.4-6.5 10 3/uLLymphocytes Absolute Auto1.81.2-3.8 10 3/uLMonocytes Absolute Auto0.30.3- 0.8 10 3/uLEosinophils Absolute Auto0.30.0-0.7 10 3/uLBasophils Absolute Auto0.0 0.0-0.1 10 3/uLImmature Granulocytes Abs Auto0.010.00-0.03 10 3/uLPerforming Lab:see noteML - [facility] LBFREE T3 Reviewed date:03/20/2025 10:39:27 AM Interpretation: Performing Lab: Notes/Report: [facility] ,Free T32.602.18-3.98 pg/mLPerforming Lab:see noteML - [facility] LB IRON Reviewed date:03/20/2025 10:39:27 AM Interpretation: Performing Lab: Notes/Report: [facility] ,Iron50.050.0-170.0 ug/dLPerforming Lab:see note - [facility] LB PROF 14(COMP METB) Reviewed date:03/20/2025 10:39:27 AM Interpretation: Performing Lab: Notes/Report: [facility] ,Rhkqqi817867-991 mmol/LPotassium4.13.5-5.1 mmol/QMhplbglh82955-198 mmol/LCarbon Oxayuqa99.221.0-32.0 mmol/LAnion Gap13.3Inysssp25411-721 mg/dLBlood Urea Qmtzbtcu27.07.0-18.0 mg/dLCreatinine0.760.55-1.02 mg/dLEstimated GFR ( Milagro>60>=60 mL/min/1.73m 2Estimated GFR (Non- Skylar>60>=60 mL/min/1.73m 2BUN Creatinine Ratio22.4Rpnwwvj9.28.5-10.1 mg/dLBilirubin Total0.30.2-1.0 mg/dL Aspartate Amino Obgeuqtyivl5712-76 U/LAlanine Lhxftnbucpnxmnwe7898-76 U/L Alkaline Vglnuliculs47620-164 U/LTotal Protein7.06.4-8.2 g/dLAlbumin Level3.6 3.4-5.0 g/dLGlobulin3.4Albumin Globulin Ratio1.1Performing Lab:see note - [facility] LBT4 Reviewed date:03/20/2025 10:39:27 AM Interpretation: Performing Lab: Notes/Report: [facility] ,T4 Thyroxine6.604.80-13.90 ug/dLPerforming Lab:see note - [facility] LBVITAMIN D 25 [place] Reviewed date:03/20/2025 10:39:27 AM Interpretation: Performing Lab: Notes/Report: [facility] ,Vitamin D22.6 <20 ng/mL Vit D deficient 20-<30 ng/mL Vit D insufficient 30-100 ng/mL Vit D sufficient >100 ng/mL Potential Toxicity Performing Lab:see note - [facility] LBVitamin B12 Reviewed date:03/20/2025 10:39:27 AM Interpretation: Performing Lab: Notes/Report: [facility] ,Vitamin T16826363-3920 pg/mL Performed at: - [facility] [address] [id number] Software Engineer Web Services: Shawn Louis PhD, Phone: [phone] Performing Lab:see luis a - [facility] LBUS renal bladder Reviewed date:03/25/2025 03:21:45 PM Interpretation: Performing Lab: Notes/Report: Source Facility: [place] [address] Ultrasound Report Signed Patient: CONSTANTINO MENDIOLA MR#: [id number] : 1970 Acct:[id number] Age/Sex: 54 / F ADM Date: 03/21/25 Loc: US Attending Dr: JUDI YOUSSEF Ordering Physician: JUDI YOUSSEF Date of Service: 03/21/25 Procedure(s): US renal bladder Accession Number(s): [id number] cc: JUDI YOUSSEF [place] [address] Patient Name: CONSTANTINO MENDIOLA MRN: [id number] date: 1970 Sex: F Assigned Patient Location: SLEEP Current Patient Location: SLEEP Accession/Order Number: [id number] Exam Date: 03/21/2025 12:05 Report Date: 03/21/2025 12:09 At the request of: JUDI YOUSSEF Procedure: US renal bladder BILATERAL RENAL AND BLADDER ULTRASOUND CLINICAL HISTORY: Follow-up renal mass on CT. Left flank pain. COMPARISON: CT 03/14/2025 and ultrasound 09/14/2024 Estimation of renal size is approximately 10.4 cm on the right and 10.2 cm on the left. No shadowing calculi or hydronephrosis are identified. An irregular, complex parapelvic cystic area is again seen at the superior pole the right kidney measuring 2.2 x 1.4 x 1.8 cm in size. This is not significantly changed. There is no perinephric fluid. The urinary bladder is is not well distended with a volume of 40 mL. No obvious contour or intraluminal abnormalities are seen. Ureteral jets are visualized. US/US renal bladder IMPRESSION: NO OBSTRUCTIVE UROPATHY. SIMILAR COMPLEX PARAPELVIC CYST AT THE UPPER POLE OF THE RIGHT KIDNEY. Impression dictated by: Columba Domínguez M.D. 03/21/2025 12:09 PM Dictation Location: [place] [address] Electronically authenticated by: [id number] Y Date: 03/21/2025 12:09 Dictated By: Columba Domínguez M.D. 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 9) Diagnosis 3 Hiatal hernia (K44.9 ) Referral Organization [facility] Referring Provider First Name Judi Referring Provider Last Name [facility]erred Provider Anai Forbes Referred Provider Specialty Gastroentero logy Referral Priority Routine Diagnosis 1 Abdominal pain (R10. 9) Referral Organization [facility] Referring Provider First Name Judi Referring Provider Last Name Regina Referring Provider [facility] melo Referred Provider Anai Forbes Referred Provider Specialty Gastroentero logy Referral Priority Routine Diagnosis 1 Cystic kidney diseas e, unspecified (Q61.9) Referral Organization [facility] Referring Provider First Name Judi Referring Provider Last Name [facility] Referring Provider [facility] Referred Provider Flavio Ramirez Referred Provider Specialty Urology Referral Priority Routine Medications Medication SIG (Take, Route, Frequency, Duration) Notes Start Date End Date Status Effexor XR 37.5 MG 1 capsule with food Orally On ce a day; Duration: 30 days 5ActiveEsomeprazole Magnesium 40 MG1 capsule 1/2 to 1 hour before morning meal Orally Once a dayActiveEstradiol 0.01 %as directed VaginalActive Vitamin D3 50 MCG (2000 UT)1 capsule Orally Once a day; Duration: 30 day(s) 5ActivePromethazine HCl 25 MGTAKE 1 TABLET BY MOUTH EVERY 6 HOURS NEEDED; Duration: 15ActiveDicyclomine HCl 20 MG1 tablet Orally Three times a day ActiveKetorolac Tromethamine 10 MG1 tablet with food or milk as needed Orally every 6 hrsActivelevETIRAcetam 1000 MG1 tablet Orally every 12 hrs; Duration: 7 daysActiveFluticasone Propionate 50 MCG/ACTUSE 1 SPRAY IN EACH NOSTRIL TWICE A DAY; Duration: 90ActiveIBgard 90 MGas directed Orally twice a dayActive Colestipol HCl 1 GM1 tablet Orally Twice a dayActiveMetoclopramide HCl 5 MGTAKE 1 TABLET BY MOUTH BEFORE MEALS AND AT BEDTIME; Duration: 30ActiveDaily Vitamin ActiveMiraLaxActiveLevsin/SL 0.125 MG1 tablet under the tongue and allow to dissolve as needed for abd pain Sublingual AC and HS12/05/2023ctiveAspirin 81 81 MG1 tablet Orally Once a dayActiveLisinopril 40 MG1 tablet Orally Once a day; Duration: 30 days03/20/2024ctive Immunizations Vaccine Route Administration Date Status Comme nts SARS-COV-2 (COVID 19 Pfizer 30mcg/0.3mL) Unknown 02/05/2021 Administered SARS-COV-2 (COVID 19 Pfizer 30mcg/0.3mL)Ewbllor72/24/3594EirnofyptjszGEWF-CHK-8 (COVID 19 Pfizer 30mcg/0.3mL)Whozrys1970HlhbeegyrwebIEYN-MFK-4 (COVID 19 Pfizer 30mcg/0.3mL), mirian zrbxeeePnagdgo76/14/0947RudlvtgueicrBLWD-VWW-5 (COVID 19) bivalent 30 mcg/0.3 ml zrfcBdepcar06/11/2022AdministeredZOSTER (SHINGLES) VACCINE (HZV)Trpmekk55/23/2024AdministeredZOSTER (SHINGLES) VACCINE (HZV)Unknown 5Administered Social History Tobacco Use: Social History Observation Description Date Details (start date - stop date) Never Smoker NA - NA Tobacco Use/Smoking Question Answer Notes Patient is a nonsmoker AUDIT-C (Standard) Question Answer Notes Did you have a drink containing alcohol in the p ast year? No Xwuaeb7JzcvseaqqnnzhoDjcqcsxk Problems Problem Type SNOMED Code ICD Code Onset Dates Problem Status W/U Status Risk Notes Problem Hypomagnesemia (520838489) Hypomagnesemia (E83.42) ActiveconfirmedProblemMigraine without aura, not refractory (disorder) (912836880)Migraine, unspecified, not intractable, without status migrainosus (G43.909)ActiveconfirmedProblemDyskinesia of esophagus (98029692)Dyskinesia of esophagus (K22.4)ActiveconfirmedProblemFunctional dyspepsia (1647850)Functional dyspepsia (K30)ActiveconfirmedProblemGastroparesis (710115977)Gastroparesis (K31.84)ActiveconfirmedProblemCongenital cystic kidney disease (97294451)Cystic kidney disease, unspecified (Q61.9)ActiveconfirmedProblemSeizure (30222683) Seizure (R56.9)ActiveconfirmedProblemGastroesophageal reflux disease (477133804) GERD (gastroesophageal reflux disease) (K21.9)ActiveconfirmedProblemHypertension (05074691)HTN (hypertension) (I10)ActiveconfirmedProblemPalpitations (68128530) Palpitation (R00.2)ActiveconfirmedProblemTachycardia (6340165)Tachycardia (R00.0)ActiveconfirmedProblemDepression (414543165)Depression (F32.9)Active confirmedProblemObstructive sleep apnea syndrome (15707246)MAYA (obstructive sleep apnea) (G47.33)ActiveconfirmedProblemDegeneration of lumbar intervertebral disc (81007564)Lumbar degenerative disc disease (M51.36)ActiveconfirmedProblem Urinary tract infectious disease (90647540)UTI (urinary tract infection) (N39.0) ActiveconfirmedProblemVitamin D deficiency (83013762)Vitamin D deficiency (E55.9)ActiveconfirmedProblemMenopause (360753255)Hot flashes (N95.1)Active confirmedProblemDysphagia (00087246)Dysphagia (R13.10)ActiveconfirmedProblem Hypoglycemia (320012693)Hypoglycemia (E16.2)ActiveconfirmedProblemDiverticulitis (75596905)Diverticulitis (K57.92)ActiveconfirmedProblemRenal mass (113434795) Renal mass (N28.89)ActiveconfirmedProblemNeutropenia (037685712)Neutropenia (D70.9)ActiveconfirmedProblemIron deficiency anemia (83215091)Anemia, iron deficiency (D50.9)ActiveconfirmedProblemGastro-esophageal reflux (893975256) Gastro-esophageal reflux (K21.9)ActiveconfirmedProblemIleus (488080250)Ileus (K56.7)ActiveconfirmedProblemMalnutrition of moderate degree (Horner: 60% to less than 75% of standard weight) (21168185)Moderate protein malnutrition (E44.0) ActiveconfirmedProblemIntestinal obstruction (54236133)SBO (small bowel obstruction) (K56.609)Activeconfirmed Vital Signs Blood pressure diastolic 68 mm Hg 07/19/2025 Orryrf89 in07/19/2025lood pressure pabyxvvt382 mm Hg07/19/20256065Oidsvz158.6 lbs 07/19/2025BMI30.48 kg/m207/19/2025 Encounters Encounter Location Date Provider Diagnosis [address] [address] 03/29/2025 Judi Youssef Ear pain, bilateral H92.03 and Gastroparesis K31.[address] [address] 07/19/2025 Judi Youssef Wellness examination Z00.00 ; Depression F32.9 and Hot flashes N95.[address] [address] 09/03/2024 Judi Youssef Ileus K56.[address] [address] 10/26/2024 Judi Regina Seizure R56.[address] [address] 12/21/2024 Judi Youssef Muscle strain T14.8X XA [address] [address] 02/07/2025 Judi Youssef UTI (urinary tract infection) N39.0 ; HTN (hypertension) I10 and Functional dyspepsia K30 [facility] [address] [place] [facility] [address] 03/19/2025 Judijose manuel Youssef Fatigue R53.83 ; Dyskinesia of esophagus K22.4 ; Abdominal pain R10.9 and Hiatal hernia K44.9 [facility] [address] [place] [facility] [place] [address] 06/13/2025 Judijose manuel Youssef Knee pain M25.569 [facility] [address] [place] [facility] [place] [address] 06/17/2025 Isaac Hoy Left knee pain M25.5 62 [facility] [address] [place] [facility] [place] [address] 03/26/2025 Judi Youssef B12 deficiency E53.8 [facility] [address] [place] [facility] [place] [address] 07/19/2024 Judi Youssef Renal lesion N28.9 [facility] [address] [place] [facility] [place] [address] 08/31/2024 Judi Youssef [facility] [place] [facility] [place] [address] 09/03/2024amela [facility] [place] [facility] [place] [address]/Pamike [facility] [facility] [address] [facility] [place] [address]/Doug HoyBVChildren'S [facility] [facility] [address] [facility] [place] [address]/Pamike YoussefVitamin D deficiency E55.9 and Vitamin B12 deficiency E53.8[facility] [place] [facility] [place] [address]/25/2025Judi Youssef [facility] [place] [facility] [place] [address] 11/28/2024Pamike [facility] [place] [facility] [address]/03/2025[facility] [address] [place] [facility] [place] [address]/04/2025Pamela [facility] [place] [address]/ Judi CramerRenal mass N28.89[facility] [place] [facility] [place] [address]/Pamela [facility] [address] [place] [facility] [place] [address]/Pamela CramerVitamin D deficiency E55.9 ; Vitamin B12 deficiency E53.8 and Fatigue R53.83[place] [address] [place] [address]/ Judi CramerCystic kidney disease, unspecified Q61.9[facility] [place] [address]/Pamela [facility] [place] [address] 04/29/2025Pamela CramerDyskinesia of esophagus K22.4 and Gastroparesis K31.84 Assessments Encounter Date Diagnosis (ICD Code) Assessment Notes Treatment Notes Treatment Clinical Notes Section Notes 09/03/2024 Ileus (ICD-10 - K56.7) fu Jazmine, has phone number to call labs continue with stool softeners 10/26/2024Seizure (ICD-10 - R56.9) fu neurology as directed continue with new med 12/21/2024Muscle strain (ICD-10 - T14.8XXA) left side rest, ice, nsaids stop picking up 12 and 16 hr shifts fu if not improving 02/07/2025UTI (urinary tract infection) (ICD-10 - N39.0)02/07/2025HTN (hypertension) (ICD-10 - I10) increase LIsinopril dose to 40 bp check 1-2 weeks 03/19/2025Fatigue (ICD-10 - R53.83)continue with sleep study03/19/2025Dyskinesia of esophagus (ICD-10 - K22.4)03/26/2025B12 deficiency (ICD-10 - E53.8) 03/29/2025Ear pain, bilateral (ICD-10 - H92.03)04/29/2025Dyskinesia of esophagus (ICD-10 - K22.4) ok for off work note fu GI scheduled 06/13/2025Knee pain (ICD-10 - M25.569) avoid nsaid per GI samples of volateren given fu Dr Izaguirre for knee injections? discussed PT, imaging, pain man 06/17/2025Left knee pain (ICD-10 - M25.562)07/19/2025Wellness examination (ICD- 10 - Z00.00)07/19/2025Depression (ICD-10 - F32.9)07/19/2024enal lesion (ICD-10 - N28.9)11/19/2024Vitamin D deficiency (ICD-10 - E55.9)03/18/2025Renal mass (ICD-10 - N28.89)03/21/2025Vitamin D deficiency (ICD-10 - E55.9)03/21/2025 Vitamin B12 deficiency (ICD-10 - E53.8)03/25/2025ystic kidney disease, unspecified (ICD-10 - Q61.9)11/19/2024Vitamin B12 deficiency (ICD-10 - E53.8) 07/19/2025Hot flashes (ICD-10 - N95.1)trial of avdctzd8004/29/2025Gastroparesis (ICD-10 - K31.84)fu GI hcotlueor54/25/2025Gastroparesis (ICD-10 - K31.84)fu GI as jvlhgnaes22/15/2025bdominal pain (ICD-10 - R10.9)02/07/2025Functional dyspepsia (ICD-10 - K30) phenergan not helping reglan has helped in past 03/19/2025Hiatal hernia (ICD-10 - K44.9)03/21/2025Fatigue (ICD-10 - R53.83) 12/21/2024Otherhas fu with cardiology and neurology, needs to call GI for fu states she will Plan Of Treatment Pending Test Test Name Order Date CMP (COMPLETE METABOLIC PANEL) CMP (COMPLETE METABOLIC PANEL) UA (URINALYSIS, COMPLETE) 11/07/2023 UA (URINALYSIS, COMPLETE) 08/03/2023 UA (URINALYSIS, COMPLETE) 02/07/2025 UA (URINALYSIS, COMPLETE) 10/18/2023 UA (URINALYSIS, COMPLETE) 12/30/2023 UA (URINALYSIS, COMPLETE) 01/04/2024 UA (URINALYSIS, COMPLETE) 01/20/2024 CULTURE, STOOL 12/05/2023 CULTURE, URINE w SENSITIVITY 12/30/2023 CULTURE, URINE w SENSITIVITY 01/20/2024 HEMOGLOBIN A1C (GLYCO) 12/30/2023 HEMOGLOBIN A1C (GLYCO) 03/19/2025 IRON, TOTAL 03/19/2025 IRON, TOTAL 12/30/2023 LIPID PANEL (CHOL/TRIG/HDL/LDL) 07/19/20 25 LIPID PANEL (CHOL/TRIG/HDL/LDL) 12/30/19 24 CBC WITH [...] 2_3 VIEWS 11/21/2023 THYROID PANEL (T4/TSH/FREE T3) 5 THYROID PANEL (T4/TSH/FREE T3) 5 THYROID PANEL (T4/TSH/FREE T3) 5 THYROID PANEL (T4/TSH/FREE T3) 4 XR HIP [...] ACCESS PPO PLUS LOCAL PLAN [address] [place] [address] [id number] Constantino Mendiola Self - patient is the insured 3 Medications Administered Medication Instructions Date of Administration Dosage Notes Cyanocobalamin mLTriamcinolone 40 mg/ml0 mg Medical (General) History Medical History History ICD Code Mitrovalve prolapse Acute plicvqixmfxymxX65.92Dyskinesia of ajoapljzdT43.4Surgical History Surgery Date(Month/Year) Gallbladder Hernia RepairHysterectomyHospitalization History Reason Date(Month/Year) Bowel Obstruction- [facility] 08/06 024 bowel obstruction 11/26 bowel obstruction 10/2023 Abd Pain, Vomiting 03/25/2023
[2025-07-19 10:27] LABS: Cholesterol 210 mg/dL (<=200); Free T3 2.12 pg/mL (2.18-3.98); HDL Cholesterol 67 mg/dL (40-60); Thyroid Stimulating Hormone 1.732 uIU/mL (0.358-3.740); Triglycerides 94 mg/dL (<=150); VLDL CHOLESTEROL 18.8 mg/dL
== END 2025-07-19 09:15 | disposition home or self-care (01) ==
LOC: LAB 09:16
PROVIDERS: PCP Nurse Practitioner Family; Visit Provider Nurse Practitioner Family
DX: Z00.00 Encounter for general adult medical examination without abnormal findings (principal)
CPT/HCPCS: 36415; 80061; 84436; 84443; 84481

== ENCOUNTER 2025-08-12 07:37 | Outpatient (OUT) | payer BC, SELFPAY ==
--- OUTSIDE RECORDS SUMMARY | 2025-08-12 07:42 | XMS_ITS | Clinical Summary ---
Author Organization [facility] Address [address], [address] [place] [address] Care Team Providers Care Commercial Accountant Name Role Phone Judi Tapia FURNACE CHECKER - WEB DEVELOPMENT INTERN Primary Care Provide r Allergies Active AllergyReactionsCriticalityNoted DateCommentsCyclobenzaprineOther (See Comments),KqtsgtnrKxsr14/24/2018 Other Reaction(s): Other, Swelling of Lip/Tongue/Throat, throat swelling IgxvrhstlataaQkljOxc57/27/2024enicillinsOther (See Comments),Rash,SwellingHigh 04/28/2018 Medications MedicationSigDispense QuantityRefillsLast FilledStart [...] tablet Take 1 tablet by mouth every jtmkqqe71/15/2025Active polyethylene glycol (GLYCOLAX) 17 GM/SCOOP powder TAKE PER BOWEL PREP INSTRUCTIONS 238 g 5Active Active Problems ProblemNoted DateDiagnosed DateGastroesophageal reflux xhlsvll6703/14/2025 Dysphagia, azobdgbltpj61/24/2025Generalized abdominal pain08/30/2024rimary lroalivznysg50/25/2024Gastroesophageal reflux disease with esophagitis without qhddnyplzz59/25/2024Major depressive auzsrdtq60/25/3657Xnuajnadawd36/25/2024 Ileus08/28/2024Other hosllcnvf57/11/2024 Resolved Problems ProblemNoted DateDiagnosed DateResolved DateScreening for colon ughjou0902/26/2025 03/28/2025 Social History Tobacco UseTypesPacks/DayYears UsedDateSmoking Tobacco: FormerCigarettes Smokeless Tobacco: Never Tobacco Cessation:Counseling Given: Not Answered Alcohol UseStandard Drinks/WeekCommentsYes0 (1 standard drink = 0.6 oz pure alcohol)[facility] UtilitiesAnswerDate RecordedIn the past 12 months has the [employer], [employer], oil, or water [employer] threatened to shut off services in your [...] were you homeless or living in a long-term (including now)?No08/28/2024 Food InsecurityAnswerDate RecordedWithin the past 12 months, you worried that your food would run out before you got the money to buymore.Within the past 12 months, the food you bought just didn't last and you didn't have money to get more.Interpersonal Safety Domain Source: IP Abuse ScreeningAnswerDate RecordedPhysical phlclSpgfja36/24/2024Verbal abuseDenies 08/28/2024Emotional dbaneUgnlgb39/24/2024Financial sjqeuEuqdfe39/24/2024Sexual kztprMbwdco74/24/2024CommentsNoSex and Gender InformationValueDate RecordedSex Assigned at BirthNot on fileLegal FtxWlfmly53/06/2024 1:06 PM EST Gender IdentityNot on fileSexual OrientationNot on file Last Filed Vital Signs Vital SignReadingTime TakenCommentsBlood Hwmirbxt579/8902/26/2025 1:20 PM EDT Hdfhf805002/26/2025 1:20 PM UPIYumphgwdbhl94.9 ??C (98.4 ??F)02/26/2025 1:20 PM EDTRespiratory Nply937302/26/2025 1:20 PM EDTOxygen Eseosbogxu56%02/26/2025 1:20 PM EDTInhaled Oxygen Concentration--Dltqdy92.3 kg (188 lb)03/18/2025 1:05 PM EDT Mjinbg915.2 cm (5' 7 )03/18/2025 1:05 PM EDTBody Mass Index29.4407 1:05 PM EDT Plan of Treatment Health MaintenanceDue DateLast DoneCommentsDepression Hneurwiyhs82/23/1982HIV tqhnqn1705/28/1985Hepatitis C ltnbed8905/28/1988DTaP/Tdap/Td vaccine (1 - Tdap) 1989Hepatitis B vaccine (1 of 3 - 19+ 3-dose series)1989Diabetes phrkpk3605/28/2005Breast cancer kdstxh1105/28/20102303Vsuzrj80/23/2010Colonoscopy 2015Colorectal Cancer Zanbfv6005/28/2015FIT/FOBT: Average risk2015 Fecal-DNA (Cologuard): Average risk2015Sigmoidoscopy/CT colonography 2015Pneumococcal 50+ years Vaccine (1 of 1 - PCV)2020Flu vaccine (#1)510/2COVID-19 Vaccine ( season)2025 06/15/2022, 03/18/2022, 11/06/2021, Additional history existsShingles vaccine Umjizktyw16/17/2025, 04/27/2024Hepatitis A vaccineAged OutNo longer eligible based [...] (Latest Code Status on File) Date ActivatedDate ZdrpmbbiivgLwbeemxu97/24/2024 3:16 PM08/30/2024 6:26 PM Care Teams Team MemberRelationshipSpecialtyStart DateEnd Date Judi Tapia, F[employer]NA[employer] CHECKER - WEB DEVELOPMENT INTERN [address] [place] [id number] PCP - Gcysqkf65/25/24
--- OUTSIDE RECORDS SUMMARY | 2025-08-12 07:42 | XMS_ITS | Patient Health Record ---
Author Organization [facility] in [place] Address [address] [place] [address] Care Team Providers Care Director Business Systems Name Role Phone ReginaEdelmiraJudi Primary Care Provider [place] Isaac Fishman [phone] Allergies Allergen (clinical drug ingredient) Drug/Non Drug Allergy documented on EMR Reaction Allergy Type Onset Date Status Flexeril (uncoded)anaphylaxisAllergyActivePenicillin (uncoded)arm swelling AllergyActive Results Component Value Reference Range Notes CBC AUTO DIFF Reviewed date:10/01/2024 12:35:56 PM Interpretation: Performing Lab: Notes/Report: [facility] , White Blood Count 9.4 4.0-11.0 10 3/uL Red Blood Count4.694.20-5.40 10 6/vKAtzrlcynzs82.812.0-16.0 g/rJDdxliidlbx62.9 36.0-48.0 %Mean Corpuscular Uxkyiq96.381.0-99.0 fLMean Corpuscular Hemoglobin 29.426.7-34.0 pgMean Corpuscular HGB Conc32.929.9-35.2 g/dLRed Cell Distribution Width13.011.0-15.0 %Platelet Ptaaj718108-718 10 3/uLMean Platelet Volume9.29.5- 13.5 fLNeutrophils Percent Auto72.343.0-75.0 %Lymphocytes Percent Auto16.220.5- 60.0 %Monocytes Percent Auto9.91.7-12.0 %Eosinophils Percent Auto0.00.9-7.0 % Basophils Percent Auto0.10.2-2.0 %Immature Granulocytes Pct Auto1.50.0-0.5 % Neutrophils Absolute Auto6.81.4-6.5 10 3/uLLymphocytes Absolute Auto1.51.2-3.8 10 3/uLMonocytes Absolute Auto0.90.3-0.8 10 3/uLEosinophils Absolute Auto0.00.0- 0.7 10 3/uLBasophils Absolute Auto0.00.0-0.1 10 3/uLImmature Granulocytes Abs Auto0.140.00-0.03 10 3/uLPerforming Lab:see noteML - [facility] LBECG 12 lead Reviewed date:10/01/2024 12:35:56 PM Interpretation: Performing Lab: Notes/Report: Source Facility: [facility]-[address] [place] [address] [place] [address] Electrocardiograph Report Signed Patient: CONSTANTINO MENDIOLA MR#: [id number] : 1970 Acct:[id number] Age/Sex: 54 / F ADM Date: 09/28/24 Loc: ER Attending Dr: Ordering Physician: Candy Wilson Date of Service: 09/28/24 Procedure(s): ECG 12 lead Accession Number(s): [id number] cc: [facility] Test Date: 2024-09-28 Pat Name: CONSTANTINO MENDIOLA Department: Room: - 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 Signed By: 10/01/24 0922 DD/ 1525 TD/TT: Wet Washer Machine:IRON Reviewed date:03/20/2025 10:39:27 AM Interpretation: Performing Lab: Notes/Report: [facility] ,Iron50.050.0-170.0 ug/dLPerforming Lab:see note - [facility] LB Vitamin B12 Reviewed date:03/20/2025 10:39:27 AM Interpretation: Performing Lab: Notes/Report: [facility] ,Vitamin G70606304-0730 pg/mL Performed at: [address] [id number] Vehicle Safety Inspector: Shawn Louis PhD, Phone: [phone] Performing Lab:[facility] LBT4 Reviewed date:07/19/2025 11:26:45 AM Interpretation: Performing Lab: Notes/Report: [facility] ,T4 Thyroxine5.804.80-13.90 ug/dLPerforming Lab:see note - [facility] LBTSH Reviewed date:07/19/2025 11:26:45 AM Interpretation: Performing Lab: Notes/Report: [facility] ,Thyroid Stimulating Hormone1.7320.358-3.740 uIU/mLPerforming Lab:[facility]Cl[facility] LBUA (Urinalysis, Dipstix only - w/o micro) Reviewed date:02/07/2025 10:34:26 AM Interpretation: Performing Lab: Notes/Report: COLORyellowYellow - Melissa -CLARITYclearClear - ClearGLUCOSE-0 - 133 MG/DLALBUMIN -NEG - NEG MG/DLBILIRUBIN-NEG - NEG MG/DLSPECIFIC GRAVITY1.0101.001 - 1.035 KETONES-NEG - NEG MG/DLBLOOD, URtracePH, UR55 - 9UROBILNOGEN-0.2 - 1 MG/DL NITRITE-NEG - NEGESTERASE (PETER)+NEG - NEG MG/DLMAGNESIUM Reviewed date:09/07/2024 11:32:59 AM Interpretation: Performing Lab: Notes/Report: [facility] ,Magnesium2.11.8-2.4 mg/dLPerforming Lab:see note - [facility] LB CBC AUTO DIFF Reviewed date:08/28/2024 08:57:50 AM Interpretation: Performing Lab: Notes/Report: [facility] ,White Blood Count8.44.0-11.0 10 3/uLRed Blood Count4.004.20-5.40 10 6/uL Iqbmfgqdma35.912.0-16.0 g/tOYkoxbqiamp91.836.0-48.0 %Mean Corpuscular Fzetvv94.0 81.0-99.0 fLMean Corpuscular Fdyehiteed59.826.7-34.0 pgMean Corpuscular HGB Conc 32.329.9-35.2 g/dLRed Cell Distribution Width13.011.0-15.0 %Platelet Cedvc587 150-450 10 3/uLMean Platelet Volume9.09.5-13.5 fLNeutrophils Percent Auto63.5 43.0-75.0 %Lymphocytes Percent Auto26.320.5-60.0 %Monocytes Percent Auto6.31.7- 12.0 %Eosinophils Percent Auto3.40.9-7.0 %Basophils Percent Auto0.40.2-2.0 % Immature Granulocytes Pct Auto0.10.0-0.5 %Neutrophils Absolute Auto5.31.4-6.5 10 3/uLLymphocytes Absolute Auto2.21.2-3.8 10 3/uLMonocytes Absolute Auto0.50.3-0.8 10 3/uLEosinophils Absolute Auto0.30.0-0.7 10 3/uLBasophils Absolute Auto0.00.0- 0.1 10 3/uLImmature Granulocytes Abs Auto0.010.00-0.03 10 3/uLPerforming Lab:see noteML - [facility] LBPROF CHEM 8 (BAS METB) Reviewed date:08/28/2024 08:57:50 AM Interpretation: Performing Lab: Notes/Report: [facility] ,Dwdoje819410-950 mmol/LPotassium3.93.5-5.1 mmol/HDrmdcexu45397-725 mmol/LCarbon Tzicyhy66.921.0-32.0 mmol/LAnion Gap13.6Ebayyma7627-032 mg/dLBlood Urea Nitrogen 13.07.0-18.0 mg/dLCreatinine0.970.55-1.02 mg/dLEstimated GFR ( Milagro>60 >=60 mL/min/1.73m 2Estimated GFR (Non- Ame60>=60 mL/min/1.73m 2BUN Creatinine Ratio13.9Glwgdue2.98.5-10.1 mg/dLPerforming Lab:see noteML - [facility] LBTroponin I High Sensitivity Reviewed date:08/28/2024 08:57:50 AM Interpretation: Performing Lab: Notes/Report: [facility] ,Troponin I High Hvpmcnyeynb03.74.0-51.3 pg/mL CUT-OFF POINTS HAVE BEEN ESTABLISHED BASED ON THE FOURTH UNIVERSAL DEFINITION OF MYOCARDIAL INFARCTION. THE UPPER REFERENCE LIMIT (URL) OF TROPONIN, DEFINED THE 99TH PERCENTILE OF cTnI DISTRIBUTION IN A REFERENCE POPULATION, HAS BEEN CONFIRMED THE DECISION THRESHOLD FOR [place] DIAGNOSIS. 99TH PERCENTILE = 51.4 PG/ML NOTE: HIGH-SENSITIVITY TROPONIN ASSAY IS NOT INTENDED TO BE USED IN ISOLATION BUT SHOULD BE INTERPRETED IN CONJUNCTION WITH OTHER DIAGNOSTIC AND CLINICAL INFORMATION. Performing Lab:see noteML - [facility] LBECG 12 lead Reviewed date:08/28/2024 08:57:50 AM Interpretation: Performing Lab: Notes/Report: Source Facility: [place] [address] Electrocardiograph Report Signed Patient: CONSTANTINO MENDIOLA MR#: [id number] : 1970 Acct:[id number] Age/Sex: 54 / F ADM Date: 08/28/24 Loc: ER Attending Dr: Ordering Physician: Zeferino Armas M.D. 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 Signed By: 08/28/24 0656 DD/ 0411 TD/TT: Wet Washer Machine:XR chest 1V Reviewed date:08/28/2024 08:57:50 AM Interpretation: Performing Lab: Notes/Report: Source Facility: [place] [address] XRay Report Signed Patient: CONSTANTINO MENDIOLA MR#: [id number] : 1970 Acct:[id number] Age/Sex: 54 / F ADM Date: 08/28/24 Loc: ER Attending Dr: Ordering Physician: Zeferino Armas M.D. Date of Service: 08/28/24 Procedure(s): XR chest 1V Accession Number(s): [id number] cc: JUDI YOUSSEF ; Zeferino Armas M.D. [place] [id number] Patient Name: CONSTANTINO MENDIOLA MRN: [id number] date: 1970 Sex: F Assigned Patient Location: ER Current Patient Location: ER Accession/Order Number: [id number] Exam Date: 08/28/2024 04:28 Report Date: 08/28/2024 [...] D.O. Signed By: 08/28/24529 DD/ 6 TD/TT: Wet Washer Machine:XR acute abdomen series Reviewed date:08/28/2024 08:57:50 AM Interpretation: Performing Lab: Notes/Report: Source Facility: [place] [address] XRay Report Signed Patient: CONSTANTINO MENDIOLA MR#: [id number] : 1970 Acct:[id number] Age/Sex: 54 / F ADM Date: 08/28/24 Loc: ER Attending Dr: Ordering Physician: Zeferino Armas M.D. Date of Service: 08/28/24 Procedure(s): XR acute abdomen series Accession Number(s): [id number] cc: JUDI YOUSSEF ; Zeferino Armas M.D. [place] [address] Patient Name: CONSTANTINO MENDIOLA MRN: [facility]:[id number] date: 1970 Sex: F Assigned Patient Location: ER Current Patient Location: ER Accession/Order Number: [id number] Exam Date: 08/28/2024 05:00 Report Date: 08/28/2024 [...] La Fuente D.O. Signed By: 08/28/2434 DD/ TD/TT: Wet Washer Machine:CT abdomen pelvis w con Reviewed date:08/28/2024 08:57:50 AM Interpretation: Performing Lab: Notes/Report: Source Facility: [place] [address] CT Scan Report Signed Patient: CONSTANTINO MENDIOLA MR#: [id number] : 1970 Acct:[id number] Age/Sex: 54 / F ADM Date: 08/28/24 Loc: ER Attending Dr: Ordering Physician: Zeferino Armas M.D. Date of Service: 08/28/24 Procedure(s): CT abdomen pelvis w con Accession Number(s): [id number] cc: JUDI YOUSSEF [place] [address] Patient Name: CONSTANTINO MENDIOLA MRN: [id number] date: 1970 Sex: F Assigned Patient Location: ER Current Patient Location: ER Accession/Order Number: [id number] Exam Date: 08/28/2024 05:55 Report Date: 08/28/2024 [...] transition point. No dilated small bowel loops. Sunlw-kr-qwlklyzb hiatal hernia. Esophagogastric tube tip terminates in [...] tube tip terminates in the distal stomach. Fpoxr-mi-tizxgnkh hiatal hernia. 3. Intermediate density lesion in the right renal cortex may correlate with a hemorrhagic/proteinaceous cyst. This could be further characterized with CT or MRI renal protocol. 4. Biliary ductal dilatation likely related to postcholecystectomy state. Recommend clinical correlation. Electronically authenticated by: MARQUES ROSEN Date: 08/28/2024 07:52 Dictated By: Marques Rosen M.D. Signed By: 08/28/24 0755 DD/ 0752 TD/TT: Wet Washer Machine:Troponin I High Sensitivity Reviewed date:08/28/2024 08:57:50 AM Interpretation: Performing Lab: Notes/Report: [facility] ,Troponin I High Wxavexxwwye92.14.0-51.3 pg/mL CUT-OFF POINTS HAVE BEEN ESTABLISHED BASED ON THE FOURTH UNIVERSAL DEFINITION OF MYOCARDIAL INFARCTION. THE UPPER REFERENCE LIMIT (URL) OF TROPONIN, DEFINED THE 99TH PERCENTILE OF cTnI DISTRIBUTION IN A REFERENCE POPULATION, HAS BEEN CONFIRMED THE DECISION THRESHOLD FOR [place] DIAGNOSIS. 99TH PERCENTILE = 51.4 PG/ML NOTE: HIGH-SENSITIVITY TROPONIN ASSAY IS NOT INTENDED TO BE USED IN ISOLATION BUT SHOULD BE INTERPRETED IN CONJUNCTION WITH OTHER DIAGNOSTIC AND CLINICAL INFORMATION. Performing Lab:see noteML - [facility] LBMAGNESIUM Reviewed date:09/03/2024 08:18:59 AM Interpretation: Performing Lab: Notes/Report: [facility] ,Magnesium1.91.8-2.4 mg/dLPerforming Lab:see noteML - [facility] LB PROF CHEM 8 (BAS METB) Reviewed date:09/03/2024 08:18:59 AM Interpretation: Performing Lab: Notes/Report: [facility] ,Svyhnw553391-098 mmol/LPotassium4.43.5-5.1 mmol/PTcbcwbmu78339-828 mmol/LCarbon Itqzxry36.921.0-32.0 mmol/LAnion Gap14.2Vwopppy51376-322 mg/dLBlood Urea Evfhfwef86.07.0-18.0 mg/dLCreatinine0.950.55-1.02 mg/dLEstimated GFR ( Milagro>60>=60 mL/min/1.73m 2Estimated GFR (Non- Skylar>60>=60 mL/min/1.73m 2BUN Creatinine Ratio15.2Xwnxeuy2.48.5-10.1 mg/dLPerforming Lab:see noteML - [facility] LBPROF 14(COMP METB) Reviewed date:09/07/2024 11:32:59 AM Interpretation: Performing Lab: Notes/Report: [facility] ,Bdrlgd221501-298 mmol/LPotassium3.63.5-5.1 mmol/ESqdqldty22298-226 mmol/LCarbon Ufvtnvb52.221.0-32.0 mmol/LAnion Gap12.8Npqtiui43336-695 mg/dLBlood Urea Yusdmnjz45.07.0-18.0 mg/dLCreatinine0.960.55-1.02 mg/dLEstimated GFR ( Milagro>60>=60 mL/min/1.73m 2Estimated GFR (Non- Skylar>60>=60 mL/min/1.73m 2BUN Creatinine Ratio27.8Sidgoqb4.38.5-10.1 mg/dLBilirubin Total0.30.2-1.0 mg/dL Aspartate Amino Hoairpckjjy2498-10 U/LAlanine Rkfrmamieidscnql9422-15 U/L Alkaline Fzjelitulkf81060-431 U/LTotal Protein7.56.4-8.2 g/dLAlbumin Level3.8 3.4-5.0 g/dLGlobulin3.7Albumin Globulin Ratio1.0Performing Lab:see noteML - [facility] LBUS renal BI Reviewed date:09/17/2024 10:44:15 AM Interpretation: Performing Lab: Notes/Report: Source Facility: [facility]-[address] [place] [address] [place] [address] Ultrasound Report Signed Patient: CONSTANTINO MENDIOLA MR#: [id number] : 1970 Acct:[id number] Age/Sex: 54 / F ADM Date: 09/14/24 Loc: US Attending Dr: JUDI YOUSSEF Ordering Physician: JUDI YOUSSEF Date of Service: 09/14/24 Procedure(s): US renal BI Accession Number(s): [id number] cc: JUDI YOUSSEF [place] [id number] Patient Name: CONSTANTINO MENDIOLA MRN: [id number] date: 1970 Sex: F Assigned Patient Location: US Current Patient Location: US Accession/Order Number: [id number] Exam Date: 09/14/2024 08:40 Report Date: 09/14/2024 [...] M.D. Signed By: 09/14/24923 DD/ 0 TD/TT: Wet Washer Machine:ALPHONSO Reviewed date:10/01/2024 12:35:56 PM Interpretation: Performing Lab: Notes/Report: [facility] ,Creatine Vubpjm5254-435 U/LPerforming Lab:see noteML - [facility] LB LACTATE or LACTIC ACID Reviewed date:10/01/2024 12:35:56 PM Interpretation: Performing Lab: Notes/Report: [facility] ,Lactate/Lactic Acid2.40.4-2.0 mmol/LRESULTS CALLED TO EUN LEIGH Performing Lab:see noteML - [facility] LBPROF 14(COMP METB) Reviewed date:10/01/2024 12:35:56 PM Interpretation: Performing Lab: Notes/Report: [facility] ,Mslspp373151-349 mmol/LPotassium3.43.5-5.1 mmol/WNajiqywi43849-023 mmol/LCarbon Wrflill90.921.0-32.0 mmol/LAnion Gap14.4Pggtpzg12875-853 mg/dLBlood Urea Ztpptkni42.07.0-18.0 mg/dLCreatinine1.110.55-1.02 mg/dLEstimated GFR ( Milagro>60>=60 mL/min/1.73m 2Estimated GFR (Non- Ame51>=60 mL/min/1.73m 2 BUN Creatinine Ratio36.8Pwlegee9.28.5-10.1 mg/dLBilirubin Total0.30.2-1.0 mg/dL Aspartate Amino Vbffirzflaq2711-83 U/LAlanine Vtmkdyrwwzlnxllq7984-28 U/L Alkaline Vayjsdmboel18568-801 U/LTotal Protein6.76.4-8.2 g/dLAlbumin Level3.1 3.4-5.0 g/dLGlobulin3.6Albumin Globulin Ratio0.9Performing Lab:see noteML - [facility] LBTroponin I High Sensitivity Reviewed date:10/01/2024 12:35:56 PM Interpretation: Performing Lab: Notes/Report: [facility] ,Troponin I High Sudbralvcco52.64.0-51.3 pg/mL CUT-OFF POINTS HAVE BEEN ESTABLISHED BASED ON THE FOURTH UNIVERSAL DEFINITION OF MYOCARDIAL INFARCTION. THE UPPER REFERENCE LIMIT (URL) OF TROPONIN, DEFINED THE 99TH PERCENTILE OF cTnI DISTRIBUTION IN A REFERENCE POPULATION, HAS BEEN CONFIRMED THE DECISION THRESHOLD FOR [place] DIAGNOSIS. 99TH PERCENTILE = 51.4 PG/ML NOTE: HIGH-SENSITIVITY TROPONIN ASSAY IS NOT INTENDED TO BE USED IN ISOLATION BUT SHOULD BE INTERPRETED IN CONJUNCTION WITH OTHER DIAGNOSTIC AND CLINICAL INFORMATION. Performing Lab:see noteML - [facility] LBUrine Culture, Routine Reviewed date:10/02/2024 10:29:54 AM [...] Interpretation RHONDA Status Urine Culture, RoutinePerformed at: CB - [facility] [place] Urine Culture, Routine Organism: Escherichia coli. : O:ESCHCO Isolated Organism: 1.1 Antibiotic Interpretation RHONDA Status Urine Culture, [address] [place], [place] [id number] Urine Culture, Routine Organism: Escherichia coli. : O:ESCHCO Isolated Organism: 1.1 Antibiotic Interpretation RHONDA Status Urine Culture, RoutineLab Director: Shawn Louis PhD, Phone: [phone] Urine Culture, Routine Organism: Escherichia coli. : [...] 1.1 Antibiotic Interpretation RHONDA Status Urine Culture, RoutinePiperacillin/Tazobactam S F Urine Culture, Routine Organism: Escherichia coli. : O:ESCHCO Isolated Organism: 1.1 Antibiotic Interpretation RHONDA Status Performing Lab:see note LC - [facility] LB SEE REPORT - Natural Resource Technician Id information not found for OBX-specific photo producer legend UA Micro, reflex to culture Reviewed date:10/01/2024 12:35:56 PM Interpretation: Performing Lab: Notes/Report: [facility] ,Color UrineYELLOWYELLOWClarity UrineCLEARCLEARSpecific [place] Urine1.025 1.005-1.025pH Urine6.05.0-9.0Protein UrineTRACENEG/TRACE mg/dLGlucose Urine UA NEGATIVENEGATIVE mg/dLBilirubin UrineNEGATIVENEGATIVEKetones UrineNEGATIVE NEGATIVE mg/dLBlood UrineNEGATIVENEGATIVENitrite UrinePOSITIVENEGATIVE Urobilinogen Urine0.20.2-1.0 EU/dLLeukocyte Esterase UrineTRACENEGATIVEWBC Urine 5-10NONE SEEN #/HPFRBC UrineNONE SEEN0-2 #/HPFBacteria UrineMODERATENONE SEEN #/HPFMucus UrineNONE SEENNONE SEENSquamous Epithelial Cell UrineFEWNONE/RARE #/LPFCrystals Seen?None SeenNone Seen #/HPFCast Seen?NONE SEENNONE SEEN #/LPF Urine Culture IndicatedYESPerforming Lab:see noteML - [facility] LBXR chest 1V Reviewed date:10/01/2024 12:35:56 PM Interpretation: Performing Lab: Notes/Report: Source Facility: [place] [address] XRay Report Signed Patient: CONSTANTINO MENDIOLA MR#: [id number] : 1970 Acct:[id number] Age/Sex: 54 / F ADM Date: 09/28/24 Loc: ER Attending Dr: Ordering Physician: Candy Wilson Date of Service: 09/28/24 Procedure(s): XR chest 1V Accession Number(s): [id number] cc: JUDI YOUSSEF ; Candy Wilson [place] [address] Patient Name: CONSTANTINO MENDIOLA MRN: [id number] date: 1970 Sex: F Assigned Patient Location: ER Current Patient Location: ER Accession/Order Number: [id number] Exam Date: 09/28/2024 15:24 Report Date: 09/28/2024 [...] Signed By: 09/28/24 1550 DD/ 1548 TD/TT: Wet Washer Machine:VITAMIN D 25 [place] Reviewed date:11/27/2024 03:16:31 PM Interpretation: Performing Lab: Notes/Report: [facility] ,Vitamin D40.2 <20 ng/mL Vit D deficient 20-<30 ng/mL Vit D insufficient 30-100 ng/mL Vit D sufficient >100 ng/mL Potential Toxicity Performing Lab:see noteML - [facility] LBVitamin B12 Reviewed date:11/28/2024 11:53:15 AM Interpretation: Performing Lab: Notes/Report: [facility] ,Vitamin N46082139-4976 pg/mL Performed at: - [facility] [address] [id number] Vehicle Safety Inspector: Shawn Louis PhD, Phone: [phone] Performing Lab:see note - [facility] LBCBC AUTO DIFF Reviewed date:12/18/2024 02:35:37 PM Interpretation: Performing Lab: Notes/Report: [facility] ,White Blood Count5.74.0-11.0 10 3/uLRed Blood Count4.064.20-5.40 10 6/uL Mucccawakm39.112.0-16.0 g/iDIwtzgfxrnj77.936.0-48.0 %Mean Corpuscular Lowrzg62.9 81.0-99.0 fLMean Corpuscular Nufulqdjfq26.826.7-34.0 pgMean Corpuscular HGB Conc 32.829.9-35.2 g/dLRed Cell Distribution Width13.111.0-15.0 %Platelet Igcyc023 150-450 10 3/uLMean Platelet Volume9.49.5-13.5 fLNeutrophils Percent Auto47.0 43.0-75.0 %Lymphocytes Percent Auto39.620.5-60.0 %Monocytes Percent Auto8.01.7- 12.0 %Eosinophils Percent Auto4.90.9-7.0 %Basophils Percent Auto0.50.2-2.0 % Immature Granulocytes Pct Auto0.00.0-0.5 %Neutrophils Absolute Auto2.71.4-6.5 10 3/uLLymphocytes Absolute Auto2.21.2-3.8 10 3/uLMonocytes Absolute Auto0.50.3-0.8 10 3/uLEosinophils Absolute Auto0.30.0-0.7 10 3/uLBasophils Absolute Auto0.00.0- 0.1 10 3/uLImmature Granulocytes Abs Auto0.000.00-0.03 10 3/uLPerforming Lab:see noteML - [facility] LBDRUG SCREEN RAPID (URINE) Reviewed date:12/18/2024 02:35:37 PM Interpretation: Performing Lab: Notes/Report: [facility] ,Cannabinoid Screen UrineNEGATIVENEGATIVEPhencyclidine Screen UrineNEGATIVE NEGATIVECocaine [...] Antidepressants): 300 ng/mL Performing Lab:see noteML - [facility] LBLIPASE Reviewed date:12/18/2024 02:35:37 PM Interpretation: Performing Lab: Notes/Report: [facility] ,Gwtlin55.016.0-77.0 U/LPerforming Lab:see noteML - [facility] LB LIVER PROFILE Reviewed date:12/18/2024 02:35:37 PM Interpretation: Performing Lab: Notes/Report: [facility] ,Bilirubin Total0.40.2-1.0 mg/dLBilirubin Direct0.10.0-0.2 mg/dLAspartate Amino Rlwuglnpyyb9042-04 U/LAlanine Zcosndtrgtlffxfh4254-39 U/LAlkaline Sivcguupehd678 46-116 U/LTotal Protein6.66.4-8.2 g/dLAlbumin Level3.43.4-5.0 g/dLGlobulin3.2 Albumin Globulin Ratio1.1Performing Lab:see [facility] LB PROF CHEM 8 (BAS METB) Reviewed date:12/18/2024 02:35:37 PM Interpretation: Performing Lab: Notes/Report: [facility] ,Najgek632438-189 mmol/LPotassium3.73.5-5.1 mmol/VLdecxcgl85494-788 mmol/LCarbon Vmxzxwx09.221.0-32.0 mmol/LAnion Gap8.7Toiwdhq01124-526 mg/dLBlood Urea Nitrogen 14.07.0-18.0 mg/dLCreatinine0.760.55-1.02 mg/dLEstimated GFR ( Milagro>60 >=60 mL/min/1.73m 2Estimated GFR (Non- Skylar>60>=60 mL/min/1.73m 2BUN Creatinine Ratio18.4Uijdnbl1.08.5-10.1 mg/dLPerforming Lab:[facility]Cl[facility] LBRHEUMATOID FACTOR Reviewed date:12/20/2024 11:55:33 AM Interpretation: Performing Lab: Notes/Report: [facility] ,Rheumatoid Factor (RF)<10.0<14.0 IU/mL Performed at: - [facility] [id number] Vehicle Safety Inspector: Shawn Louis PhD, Phone: [phone] Performing Lab:see note - [facility] LBUA (CLEAN or CATCH) UPSET OPERATOR or MICRO IF IND. Reviewed date:12/18/2024 02:35:37 PM Interpretation: Performing Lab: Notes/Report: [facility] ,Color UrineLT. YELLOWYELLOWClarity UrineCLEARCLEARSpecific [place] Urine1.020 1.005-1.025pH Urine6.05.0-9.0Protein UrineNEGATIVENEG/TRACE mg/dLGlucose Urine UANEGATIVENEGATIVE mg/dLBilirubin UrineNEGATIVENEGATIVEKetones UrineNEGATIVE NEGATIVE mg/dLBlood UrineTRACE-INEGATIVENitrite UrineNEGATIVENEGATIVE Urobilinogen Urine0.20.2-1.0 EU/dLLeukocyte Esterase UrineMODERATENEGATIVEUrine Microscopic IndicatedYESPerforming Lab:see noteML - [facility] LB URINE MICROSCOPIC ONLY Reviewed date:12/18/2024 02:35:38 PM Interpretation: Performing Lab: Notes/Report: [facility] ,WBC Urine5-10NONE SEEN #/HPFRBC Urine2-50-2 #/HPFBacteria UrineTRACENONE SEEN #/HPFMucus UrineTRACENONE SEENSquamous Epithelial Cell UrineFEWNONE/RARE #/LPF Crystals Seen?None SeenNone Seen #/HPFCast Seen?NONE SEENNONE SEEN #/LPFUrine Culture IndicatedYES-FRMCPerforming Lab:see noteML - [facility] LBANA w/Reflex Reviewed date:12/20/2024 11:55:33 AM Interpretation: Performing Lab: Notes/Report: [facility] ,PEPPER DirectNegativeNegative Performed at: CB - [facility] [address] [id number] Vehicle Safety Inspector: Shawn Louis PhD, Phone: [phone] Performing Lab:see note - [facility] LBUrine Culture - [facility] Reviewed date:12/21/2024 08:36:06 AM Interpretation: Performing Lab: Notes/Report: [facility] ,Urine Culture - [facility]See Below For Report Urine Culture - [facility] Testing performed at [facility] O:STRAGA Isolated Urine Culture - [facility] Organism Comments Urine Culture - [id number] [place] [address] Urine Culture - [facility] Testing performed at [facility] O:STRAGA Isolated Urine Culture - [facility] Organism Comments Urine Culture - [facility]MCSee Below For Report Urine Culture - [facility] Testing performed at [facility] O:STRAGA Isolated Urine Culture - [facility] Organism Comments Urine Culture - [facility]MCSee Below For Report Urine Culture - [facility] Testing performed at [facility] O:STRAGA Isolated Urine Culture - [facility] Organism Comments Urine Culture - [id number] CFU/ML Urine Culture - [facility] Testing performed at [facility] O:STRAGA Isolated Urine Culture - [facility] Organism Comments Urine Culture - [facility] Urine Culture - [facility] Testing performed at [facility] O:STRAGA Isolated Urine Culture - [facility] Organism Comments Urine Culture - [facility]* This is a corrected result. * Urine Culture - [facility] Testing performed at [facility] O:STRAGA Isolated Urine Culture - [facility] Organism Comments Urine Culture - [facility] Urine Culture - [facility] Testing performed at [facility] O:STRAGA Isolated Urine Culture - [facility] Organism Comments Urine Culture - [facility] prior result that was reported as final has been changed. Urine Culture - [facility] Testing performed at [facility] O:STRAGA Isolated Urine Culture - [facility] Organism Comments Performing Lab:see note ML - [facility] LB SEE REPORT - Natural Resource Technician Id information not found for OBX-specific photo producer legend CT chest wo con Reviewed date:12/18/2024 02:35:38 PM Interpretation: Performing Lab: Notes/Report: Source Facility: [place] [address] CT Scan Report Signed Patient: CONSTANTINO MENDIOLA MR#: [id number] : 1970 Acct:[id number] Age/Sex: 54 / F ADM Date: 12/18/24 Loc: ER Attending Dr: Ordering Physician: Nicanor Pisano M.D. Date of Service: 12/18/24 Procedure(s): CT chest wo con Accession Number(s): [id number] cc: JUDI YOUSSEF [place] [address] Patient Name: CONSTANTINO MENDIOLA MRN: [id number] date: 1970 Sex: F Assigned Patient Location: ER Current Patient Location: ER Accession/Order Number: [id number] Exam Date: 12/18/2024 10:04 Report Date: 12/18/2024 [...] Columba Domínguez M.D.12/18/2024 10:25 AM Dictation Location: [place] [address] Electronically authenticated by: [id number] Y Date: 12/18/2024 10:25 Dictated By: Columba Domínguez M.D. Signed By: 12/18/24 1028 DD/ 1025 TD/TT: Wet Washer Machine:CT abdomen pelvis wo con Reviewed date:12/18/2024 02:35:38 PM Interpretation: Performing Lab: Notes/Report: Source Facility: [place] [address] CT Scan Report Signed Patient: OCNSTANTINO MENDIOLA MR#: [id number] : 1970 Acct:[id number] Age/Sex: 54 / F ADM Date: 12/18/24 Loc: ER Attending Dr: Ordering Physician: Nicanor Pisano M.D. Date of Service: 12/18/24 Procedure(s): CT abdomen pelvis wo con Accession Number(s): [id number] cc: JUDI YOUSSEF [place] [address] Patient Name: CONSTANTINO MENDIOLA MRN: [id number] date: 1970 Sex: F Assigned Patient Location: ER Current Patient Location: ER Accession/Order Number: [id number] Exam Date: 12/18/2024 10:04 Report Date: 12/18/2024 [...] Columba Domínguez M.D.12/18/2024 10:25 AM Dictation Location: [place] [address] Electronically authenticated by: [id number] Y Date: 12/18/2024 10:25 Dictated By: Columba Domínguez M.D. Signed By: 12/18/24 1027 DD/ 1025 TD/TT: Wet Washer Machine:CBC AUTO DIFF Reviewed date:01/10/2025 11:54:39 AM Interpretation: Performing Lab: Notes/Report: [facility] ,White Blood Count5.54.0-11.0 10 3/uLRed Blood Count4.204.20-5.40 10 6/uL Inqflhqyij49.312.0-16.0 g/qVBtuonygqcw51.836.0-48.0 %Mean Corpuscular Nzhfrt84.0 81.0-99.0 fLMean Corpuscular Rubwteptzf31.326.7-34.0 pgMean Corpuscular HGB Conc 32.529.9-35.2 g/dLRed Cell Distribution Width12.711.0-15.0 %Platelet Olbae180 150-450 10 3/uLMean Platelet Volume9.49.5-13.5 fLNeutrophils Percent Auto61.5 43.0-75.0 %Lymphocytes Percent Auto27.520.5-60.0 %Monocytes Percent Auto6.61.7- 12.0 %Eosinophils Percent Auto3.30.9-7.0 %Basophils Percent Auto0.70.2-2.0 % Immature Granulocytes Pct Auto0.40.0-0.5 %Neutrophils Absolute Auto3.41.4-6.5 10 3/uLLymphocytes Absolute Auto1.51.2-3.8 10 3/uLMonocytes Absolute Auto0.40.3-0.8 10 3/uLEosinophils Absolute Auto0.20.0-0.7 10 3/uLBasophils Absolute Auto0.00.0- 0.1 10 3/uLImmature Granulocytes Abs Auto0.020.00-0.03 10 3/uLPerforming Lab:see noteML - [facility] LBPROF 14(COMP METB) Reviewed date:01/10/2025 11:54:39 AM Interpretation: Performing Lab: Notes/Report: [facility] ,Cxccch971637-473 mmol/LPotassium3.83.5-5.1 mmol/UAnnaeyai50511-697 mmol/LCarbon Vaazzxn24.521.0-32.0 mmol/LAnion Gap10.2Zhgmhgu9330-981 mg/dLBlood Urea Nitrogen 15.07.0-18.0 mg/dLCreatinine0.850.55-1.02 mg/dLEstimated GFR ( Milagro>60 >=60 mL/min/1.73m 2Estimated GFR (Non- Skylar>60>=60 mL/min/1.73m 2BUN Creatinine Ratio17.2Njimain3.18.5-10.1 mg/dLBilirubin Total0.30.2-1.0 mg/dL Aspartate Amino Cqmqrjxaofr8924-48 U/LAlanine Sklwaennyavqqgkw5346-97 U/L Alkaline Rqxafjftbjo51314-950 U/LTotal Protein6.56.4-8.2 g/dLAlbumin Level3.4 3.4-5.0 g/dLGlobulin3.1Albumin Globulin Ratio1.1Performing Lab:see noteML - [facility] LBLevetiracetam (Keppra), S Reviewed date:01/11/2025 12:15:06 PM Interpretation: Performing Lab: Notes/Report: [facility] ,Levetiracetam (Keppra), S25.110.0-40.0 ug/mL Performed at: - [facility] [id number] Vehicle Safety Inspector: Suresh Carranza MD, Phone: [phone] Performing Lab:see noteLC - [facility] LBTroponin I High Sensitivity Reviewed date:03/15/2025 01:33:25 PM Interpretation: Performing Lab: Notes/Report: [facility] ,Troponin I High Ofbmxzhvnwq21.04.0-51.3 pg/mL CUT-OFF POINTS HAVE BEEN ESTABLISHED BASED ON THE FOURTH UNIVERSAL DEFINITION OF MYOCARDIAL INFARCTION. THE UPPER REFERENCE LIMIT (URL) OF TROPONIN, DEFINED THE 99TH PERCENTILE OF cTnI DISTRIBUTION IN A REFERENCE POPULATION, HAS BEEN CONFIRMED THE DECISION THRESHOLD FOR [place] DIAGNOSIS. 99TH PERCENTILE = 51.4 PG/ML NOTE: HIGH-SENSITIVITY TROPONIN ASSAY IS NOT INTENDED TO BE USED IN ISOLATION BUT SHOULD BE INTERPRETED IN CONJUNCTION WITH OTHER DIAGNOSTIC AND CLINICAL INFORMATION. 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 Signed By: 03/19/25 1308 DD/ 1914 TD/TT: Wet Washer Machine:CT abdomen pelvis w con Reviewed date:03/18/2025 09:31:59 AM Interpretation: Performing Lab: Notes/Report: Source Facility: [place] [address] [place] [address] CT Scan Report Signed Patient: CONSTANTINO MENDIOLA MR#: [id number] : 1970 Acct:[id number] Age/Sex: 54 / F ADM Date: 03/14/25 Loc: ER Attending Dr: Ordering Physician: Veronica Lama Date of Service: 03/14/25 Procedure(s): CT abdomen pelvis w con Accession Number(s): [id number] cc: JUDI YOUSSEF [facility] [address] [place], [place] [address] Patient Name: CONSTANTINO MENDIOLA MRN: [id number] date: 1970 Sex: F Assigned Patient Location: ER Current Patient Location: ED.MAIN Accession/Order Number: [id number] Exam Date: 03/14/2025 20:59 Report Date: 03/14/2025 [...] GI: Hiatal hernia with adjacent postsurgical changes. Qoxk-pt-bjgcnigz retained stool within colon. No bowel obstruction. [...] Casey M.D. 03/14/2025 9:06 PM Dictation Location: [place] [address] Electronically authenticated by: [id number] Y Date: 03/14/2025 21:06 Dictated By: Surendra Casey M.D. Signed By: 03/14/252108 DD/ 05 TD/TT: Wet Washer Machine:CBC AUTO DIFF Reviewed date:03/20/2025 10:39:27 AM Interpretation: Performing Lab: Notes/Report: [facility] ,White Blood Count5.34.0-11.0 10 3/uLRed Blood Count4.304.20-5.40 10 6/uL Wjtydyxddd75.412.0-16.0 g/pSBhdbnxdpfk61.836.0-48.0 %Mean Corpuscular Zrbfwv51.2 81.0-99.0 fLMean Corpuscular Nfegloigbx86.826.7-34.0 pgMean Corpuscular HGB Conc 32.029.9-35.2 g/dLRed Cell Distribution Width12.811.0-15.0 %Platelet Ngliz867 150-450 10 3/uLMean Platelet Volume9.19.5-13.5 fLNeutrophils Percent Auto53.3 43.0-75.0 %Lymphocytes Percent Auto34.320.5-60.0 %Monocytes Percent Auto6.31.7- 12.0 %Eosinophils Percent Auto5.30.9-7.0 %Basophils Percent Auto0.60.2-2.0 % Immature Granulocytes Pct Auto0.20.0-0.5 %Neutrophils Absolute Auto2.81.4-6.5 10 3/uLLymphocytes Absolute Auto1.81.2-3.8 10 3/uLMonocytes Absolute Auto0.30.3- 0.8 10 3/uLEosinophils Absolute Auto0.30.0-0.7 10 3/uLBasophils Absolute Auto0.0 0.0-0.1 10 3/uLImmature Granulocytes Abs Auto0.010.00-0.03 10 3/uLPerforming Lab:see noteML - [facility] LBFREE T3 Reviewed date:03/20/2025 10:39:27 AM Interpretation: Performing Lab: Notes/Report: [facility] ,Free T32.602.18-3.98 pg/mLPerforming Lab:see noteML - [facility] LB GLYCOHEMOGLOBIN A1C Reviewed date:03/20/2025 10:39:27 AM Interpretation: Performing Lab: Notes/Report: [facility] ,Glycohemoglobin A1C5.54.5-6.2 % ADA RECOMMENDED LIMIT 4.0 - 6.0 ADA THERAPEUTIC TARGET < 7.0 ACTION SUGGESTED > 7.0 Estimated Average Yjktagr604Wtyhotmiwn Lab:see note - [facility] LB PROF 14(COMP METB) Reviewed date:03/20/2025 10:39:27 AM Interpretation: Performing Lab: Notes/Report: [facility] ,Ohvtrp195529-715 mmol/LPotassium4.13.5-5.1 mmol/TBifnvnya67253-360 mmol/LCarbon Hpoahlw42.221.0-32.0 mmol/LAnion Gap13.3Hzunaqz50387-633 mg/dLBlood Urea Mrxujonc79.07.0-18.0 mg/dLCreatinine0.760.55-1.02 mg/dLEstimated GFR ( Milagro>60>=60 mL/min/1.73m 2Estimated GFR (Non- Skylar>60>=60 mL/min/1.73m 2BUN Creatinine Ratio22.2Oouxhqi0.28.5-10.1 mg/dLBilirubin Total0.30.2-1.0 mg/dL Aspartate Amino Hxolllsefge2678-61 U/LAlanine Kercbqpghjxplswg7279-00 U/L Alkaline Huzeyurvilg03542-037 U/LTotal Protein7.06.4-8.2 g/dLAlbumin Level3.6 3.4-5.0 g/dLGlobulin3.4Albumin Globulin Ratio1.1Performing Lab:see noteML - [facility] LBT4 Reviewed date:03/20/2025 10:39:27 AM Interpretation: Performing Lab: Notes/Report: [facility] ,T4 Thyroxine6.604.80-13.90 ug/dLPerforming Lab:see note - [facility] LBTSH Reviewed date:03/20/2025 10:39:27 AM Interpretation: Performing Lab: Notes/Report: [facility] ,Thyroid Stimulating Hormone8.4060.358-3.740 uIU/mLPerforming Lab:see note - [facility] LBVITAMIN D 25 [place] Reviewed date:03/20/2025 10:39:27 AM Interpretation: Performing Lab: Notes/Report: [facility] ,Vitamin D22.6 <20 ng/mL Vit D deficient 20-<30 ng/mL Vit D insufficient 30-100 ng/mL Vit D sufficient >100 ng/mL Potential Toxicity Performing Lab:see noteML - [facility] LBUS renal bladder Reviewed date:03/25/2025 03:21:45 PM Interpretation: Performing Lab: Notes/Report: Source Facility: [facility] [place] [address] [place] [address] Ultrasound Report Signed Patient: CONSTANTINO MENDIOLA MR#: [id number] : 1970 Acct:[id number] Age/Sex: 54 / F ADM Date: 03/21/25 Loc: US Attending Dr: JUDI YOUSSEF Ordering Physician: JUDI YOUSSEF Date of Service: 03/21/25 Procedure(s): US renal bladder Accession Number(s): [id number] cc: JUDI YOUSSEF [place] [address] Patient Name: CONSTANTINO MENDIOLA MRN: [id number] date: 1970 Sex: F Assigned Patient Location: SLEEP Current Patient Location: SLEEP Accession/Order Number: [id number] Exam Date: 03/21/2025 12:05 Report Date: 03/21/2025 [...] Domínguez M.D. 03/21/2025 12:09 PM Dictation Location: [place] [address] Electronically authenticated by: [id number] Y Date: 03/21/2025 12:09 Dictated By: Columba Domínguez M.D. Signed By: 03/21/25 1212 DD/ 1209 TD/TT: Wet Washer Machine:MM tomosynthesis screening BI Reviewed date:06/21/2025 10:56:02 AM Interpretation: Performing Lab: Notes/Report: Source Facility: [place] [address] Mammography Report Signed Patient: CONSTANTINO MENDIOLA MR#: [id number] : 1970 Acct:[id number] Age/Sex: 55 / F ADM Date: 06/20/25 Loc: MAMMO Attending Dr: JUDI YOUSSEF Ordering Physician: JUDI YOUSSEF Results: Date of Service: 06/20/25 Follow Up: Procedure(s): MM tomosynthesis screening BI Accession Number(s): [id number] cc: JUDI YOUSSEF Patient Name: CONSTANTINO MENDIOLA MR#: [id number] : 1970 Exam Date: 06/20/2025 Ordering Doctor: JUDI YOUSESF [facility] RADIOLOGY REPORT PROCEDURE: MM TOMOSYNTHESIS SCREENING [...] colon cancer at age 84. LOCATION: [facility] BREAST COMPOSITION: There are scattered areas of fibroglandular density. FINDINGS: RIGHT BREAST: No significant suspicious finding. LEFT BREAST: No significant suspicious finding. DIAGNOSTIC CATEGORY 1--NEGATIVE. RECOMMENDATIONS: ROUTINE MAMMOGRAM AND CLINICAL EVALUATION IN 12 MONTHS. Dictated by: Surendra Casey MD on 06/20/2025 at 11:04 Approved by: Surendra Casey MD on 06/20/2025 at 11:11 Dictated By: Surendra Casey M.D. Signed By: 06/20/25 1113 DD/ 1112 TD/TT: Wet Washer Machine:LAILA T3 Reviewed date:07/19/2025 11:26:45 AM Interpretation: Performing Lab: Notes/Report: [facility] Laila T32.122.18-3.98 pg/mLPerforming Lab:see noteML - [facility] LB LIPID PROFILE Reviewed date:07/19/2025 11:26:45 AM Interpretation: Performing Lab: Notes/Report: [facility] ,Erygkjfcntnze82<=150 mg/xAZxfjoqcdizn937<=200 mg/dLHDL Csprwidsnqz4186-05 mg/dL > or =60 mg/dl - LOW CARDIOVASCULAR RISK <40 mg/dl - HIGH CARDIOVASCULAR RISK LDL Cholesterol Iebvjcwili076.0 <100 mg/dl OPTIMAL 100-129 mg/dl NEAR OR ABOVE OPTIMAL 130-159 mg/dl BORDERLINE HIGH 160-189 mg/dl HIGH >190 mg/dl VERY HIGH VLDL ORVWCDXHSDM44.8Chol HDL Ratio3.1 3.3 - 4.4 LOW RISK 4.4 - 7.1 AVERAGE RISK 7.1 - 11.0 MODERATE RISK >11.0 HIGH RISK Performing Lab:see noteML - [facility] LBCBC AUTO DIFF Reviewed date:01/21/2025 01:56:32 PM Interpretation: Performing Lab: Notes/Report: [facility] ,White Blood Count6.64.0-11.0 10 3/uLRed Blood Count3.884.20-5.40 10 6/uL Nkzrmscxsf83.412.0-16.0 g/oRIlqquskgmh33.636.0-48.0 %Mean Corpuscular Njkutw62.8 81.0-99.0 fLMean Corpuscular Xxzcnaaiex53.426.7-34.0 pgMean Corpuscular HGB Conc 32.029.9-35.2 g/dLRed Cell Distribution Width12.911.0-15.0 %Platelet Ojdvl684 150-450 10 3/uLMean Platelet Volume9.49.5-13.5 fLNeutrophils Percent Auto69.1 43.0-75.0 %Lymphocytes Percent Auto21.420.5-60.0 %Monocytes Percent Auto6.71.7- 12.0 %Eosinophils Percent Auto2.30.9-7.0 %Basophils Percent Auto0.50.2-2.0 % Immature Granulocytes Pct Auto0.00.0-0.5 %Neutrophils Absolute Auto4.51.4-6.5 10 3/uLLymphocytes Absolute Auto1.41.2-3.8 10 3/uLMonocytes Absolute Auto0.40.3- 0.8 10 3/uLEosinophils Absolute Auto0.20.0-0.7 10 3/uLBasophils Absolute Auto0.0 0.0-0.1 10 3/uLImmature Granulocytes Abs Auto0.000.00-0.03 10 3/uLPerforming Lab:see noteML - [facility] LBPROF CHEM 8 (BAS METB) Reviewed date:01/21/2025 01:56:32 PM Interpretation: Performing Lab: Notes/Report: [facility] ,Rwqqwx481025-147 mmol/LPotassium4.43.5-5.1 mmol/QCnoivmmx43599-317 mmol/LCarbon Ehzsqvw76.121.0-32.0 mmol/LAnion Gap11.1Vmmbmdi56337-733 mg/dLBlood Urea Forouwvk28.07.0-18.0 mg/dLCreatinine0.880.55-1.02 mg/dLEstimated GFR ( Milagro>60>=60 mL/min/1.73m 2Estimated GFR (Non- Skylar>60>=60 mL/min/1.73m 2BUN Creatinine Ratio23.0Qqxzvyf9.68.5-10.1 mg/dLPerforming Lab:see noteML - [facility] LB Reason For Referral Diagnosis 1 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 9) Diagnosis 3 Hiatal hernia (K44.9 ) Referral Organization [facility] Referring Provider First Name Judi Referring Provider Last Name Regina Referring Provider [facility] melo Referred Provider Anai Forbes Referred Provider Specialty Gastroentero logy Referral Priority Routine Diagnosis 1 Abdominal pain (R10. 9) Referral Organization [facility] Referring Provider First Name Judi Referring Provider Last Name Regina Referring Provider [facility] melo Referred Provider Anai Forbes Referred Provider Specialty Gastroentero logy Referral Priority Routine Diagnosis 1 Cystic kidney diseas e, unspecified (Q61.9) Referral Organization [facility] Referring Provider First Name Judi Referring Provider Last Name [facility]ina [facility] Flavio Ramirez Referred Provider Specialty [...] needed for abd pain Sublingual AC and HS4ActiveAspirin 81 81 MG1 tablet Orally Once a dayActiveLisinopril 40 MG1 tablet Orally Once a day; Duration: 30 days4Active Immunizations Vaccine Route Administration Date Status Comme nts SARS-COV-2 (COVID 19 Pfizer 30mcg/0.3mL) Unknown 02/05/2021 Administered SARS-COV-2 (COVID 19 Pfizer 30mcg/0.3mL)Gitxnvr14/24/1327PlrizwptqympRYKL-XMP-6 (COVID 19 Pfizer 30mcg/0.3mL)Ehvtlzz67/04/7015DamonhzbkkbxMDCO-JSB-9 (COVID 19 Pfizer 30mcg/0.3mL), mirian sjnuvraOpdects42/14/0098UozluadtglomLQWY-PRP-4 (COVID 19) bivalent 30 mcg/0.3 ml xrcfXfewptg89/11/2022AdministeredZOSTER (SHINGLES) VACCINE (HZV)Llmbmcl55/23/2024AdministeredZOSTER (SHINGLES) VACCINE (HZV)Unknown 5Administered Social History Tobacco Use: Social History Observation Description Date Details (start date - stop date) Never Smoker NA - NA Tobacco Use/Smoking Question Answer Notes Patient is a nonsmoker Alcohol Screen (Audit-C) Question Answer Notes Did you have a drink containing alcohol in the p ast year? No Ggxnik3GxdcpvpynjvbomIpymzdpiTCVNI-Z (Standard) Question Answer Notes Did you have a drink containing alcohol in the p ast year? 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)ActiveconfirmedProblemFunctional dyspepsia (7564690)Functional dyspepsia (K30)ActiveconfirmedProblemGastroparesis (636203912)Gastroparesis (K31.84)ActiveconfirmedProblemCongenital cystic kidney disease (39879215)Cystic kidney disease, unspecified (Q61.9)ActiveconfirmedProblemSeizure (46116789) Seizure (R56.9)ActiveconfirmedProblemGastroesophageal reflux disease (653363665) GERD (gastroesophageal reflux disease) (K21.9)ActiveconfirmedProblemHypertension (78505697)HTN (hypertension) (I10)ActiveconfirmedProblemPalpitations (33146658) Palpitation (R00.2)ActiveconfirmedProblemTachycardia (2696328)Tachycardia (R00.0)ActiveconfirmedProblemDepression (041150011)Depression (F32.9)Active confirmedProblemObstructive sleep apnea syndrome (05111409)MAYA (obstructive sleep apnea) (G47.33)ActiveconfirmedProblemDegeneration of lumbar intervertebral disc (55013966)Lumbar degenerative disc disease (M51.36)ActiveconfirmedProblem Urinary tract infectious disease (86802260)UTI (urinary tract infection) (N39.0) ActiveconfirmedProblemVitamin D deficiency (90121368)Vitamin D deficiency (E55.9)ActiveconfirmedProblemMenopause (963918564)Hot flashes (N95.1)Active confirmedProblemDysphagia (87967673)Dysphagia (R13.10)ActiveconfirmedProblem Hypoglycemia (145431661)Hypoglycemia (E16.2)ActiveconfirmedProblemDiverticulitis (92712556)Diverticulitis (K57.92)ActiveconfirmedProblemRenal mass (604948113) Renal mass (N28.89)ActiveconfirmedProblemNeutropenia (932842737)Neutropenia (D70.9)ActiveconfirmedProblemIron deficiency anemia (26960408)Anemia, iron deficiency (D50.9)ActiveconfirmedProblemGastro-esophageal reflux (818172804) Gastro-esophageal reflux (K21.9)ActiveconfirmedProblemIleus (671492271)Ileus (K56.7)ActiveconfirmedProblemMalnutrition of moderate degree (Horner: 60% to less than 75% of standard weight) (85467169)Moderate protein malnutrition (E44.0) ActiveconfirmedProblemIntestinal obstruction (96331823)SBO (small bowel obstruction) (K56.609)Activeconfirmed Vital Signs Blood pressure diastolic 68 mm Hg 07/19/2025 Lpgbwb98 in07/19/2025lood pressure onirzijr833 mm Hg07/19/20253265Vspzzi614.6 lbs 07/19/2025BMI30.48 kg/m207/19/2025 Encounters Encounter Location Date Provider Diagnosis [place] [address] [place] [address] 03/29/2025 Judi Regnia Ear pain, bilateral H92.03 and Gastroparesis K31.84 [place] [place] [address] 09/03/2024 Judi Regina Ileus K56.7 [place] [address] [place] [address] 10/26/2024 Judi Regina Seizure R56.[address] [address] 12/21/2024 Judi Regina Muscle strain T14.8X XA [address] [place] [address] 02/07/2025 Judi Regina UTI (urinary tract infection) N39.0 ; HTN (hypertension) I10 and Functional dyspepsia K30 [address] [place] [address] 03/19/2025 Judi Regina Fatigue R53.83 ; Dyskinesia of esophagus K22.4 ; Abdominal pain R10.9 and Hiatal hernia K44.9 [address] [place] [address] 06/13/2025 Judi Regina Knee pain M25.569 [address] [place] [address] 06/17/2025 Isaac Hoy Left knee pain M25.5 62 [facility] [address] [place] [place] [address] 07/19/2025 Judijose manuel Youssef Depression F32.9 ; H ot flashes N95.1 and Wellness examination Z00.00 [facility] [address] [place] [place] [address] 03/26/2025 Judijose manuel Youssef B12 deficiency E53.8 [facility] [address] [place] [place] [address] 08/31/2024 Judi Youssef [facility] [place] [address] 09/03/2024amela [facility] [place] [address]/Pamela [facility] [facility] [place] [address]/Doug HoyBVMemorial Hospital North[address] [facility] [place] [address]/Pamelchrystal YoussefVitamin D deficiency E55.9 and Vitamin B12 deficiency E53.8BP[facility]ers [facility] [place] [place] [address]/Pamike [facility]deMad[facility] [place] [place] [address] 11/28/2024Pamike [facility] [place] [place] [address]/03/2025Pamike [facility] [address] [place] [address]/04/2025Pamike [facility] [place] [address]/ Judi YoussefRenal mass N28.89[facility] [place] [place] [address]/Pamelchrystal [facility] [address] [place] [place] [address]/Pamela CramerVitamin D deficiency E55.9 ; Vitamin B12 deficiency E53.8 and Fatigue R53.83[facility] [place] [place] [address]/ Judijose manuel UgaldemerCystic kidney disease, unspecified Q61.9BPioneers Medical Center[address] [place] [place] [address]/Pamela Regina [facility] [place] [place] [address] 07/19/2025[facility] [place] [place] [address]/Pamela CramerDyskinesia of esophagus K22.4 and Gastroparesis K31.84 [...] pain man 06/17/2025Left knee pain (ICD-10 - M25.562)07/19/2025Depression (ICD-10 - F32.9) 07/19/2025Hot flashes (ICD-10 - N95.1)trial of tjptxgf2111/19/2024Vitamin D deficiency (ICD-10 - E55.9)03/18/2025Renal mass (ICD-10 - N28.89)03/21/2025 Vitamin D deficiency (ICD-10 - E55.9)03/21/2025Vitamin B12 deficiency (ICD-10 - E53.8)03/25/2025ystic kidney disease, unspecified (ICD-10 - Q61.9)11/19/2024 Vitamin B12 deficiency (ICD-10 - E53.8)07/19/2025Wellness examination (ICD-10 - Z00.00)04/29/2025Gastroparesis (ICD-10 - K31.84)fu GI whtrgvpim24/25/2025 Gastroparesis (ICD-10 - K31.84)fu GI as fwkjprlih13/15/2025bdominal pain (ICD- 10 - R10.9)02/07/2025Functional dyspepsia (ICD-10 - K30) phenergan not helping reglan has helped in past 03/19/2025Hiatal hernia (ICD-10 - K44.9)03/21/2025Fatigue (ICD-10 - R53.83) 12/21/2024Otherhas fu with cardiology and neurology, needs to call GI for fu states she will Plan Of Treatment Pending Test Test Name Order Date CMP (COMPLETE METABOLIC PANEL) 4 CMP (COMPLETE METABOLIC PANEL) UA (URINALYSIS, COMPLETE) 08/03/2023 UA (URINALYSIS, COMPLETE) 11/07/2023 UA (URINALYSIS, COMPLETE) 02/07/2025 UA (URINALYSIS, COMPLETE) 10/18/2023 UA (URINALYSIS, COMPLETE) 12/30/2023 UA (URINALYSIS, COMPLETE) 01/04/2024 UA (URINALYSIS, COMPLETE) 01/20/2024 CULTURE, STOOL 12/05/2023 CULTURE, URINE w SENSITIVITY 12/30/2023 CULTURE, URINE w SENSITIVITY 01/20/2024 HEMOGLOBIN A1C (GLYCO) 03/19/2025 HEMOGLOBIN A1C (GLYCO) 12/30/2023 IRON, TOTAL 03/19/2025 IRON, TOTAL 12/30/2023 LIPID PANEL (CHOL/TRIG/HDL/LDL) 12/30/19 24 LIPID PANEL (CHOL/TRIG/HDL/LDL) 07/19/20 25 CBC WITH DIFF (EXP 07/2025) 12/30/2023 VITAMIN D, 25 LEVEL (TOTAL) 03/19/2025 [...] 2_3 VIEWS 11/21/2023 THYROID PANEL (T4/TSH/FREE T3) THYROID PANEL (T4/TSH/FREE T3) 07/15/202 5 THYROID PANEL (T4/TSH/FREE T3) 5 THYROID [...] ACCESS PPO PLUS LOCAL PLAN [address] [place] [address] [id number] Constantino Mendiola Self - patient is the insured 3 Medications Administered Medication Instructions Date of Administration Dosage Notes Cyanocobalamin mLTriamcinolone 40 mg/ml0 mg Medical (General) History Medical History History ICD Code Mitrovalve prolapse Acute zpbpvhteksmnzrY09.92Dyskinesia of uxdmtimsbY37.4Surgical History Surgery Date(Month/Year) Gallbladder HysterectomyHernia RepairHospitalization History Reason Date(Month/Year) Abd Pain, Vomiting 03/25/2023 Bowel Obstruction- [facility] sent to [facility] 08/06 024 bowel obstruction 11/26 bowel obstruction 10/2023
--- OUTSIDE RECORDS SUMMARY | 2025-08-12 07:42 | XMS_ITS | Clinical Summary ---
Author Organization [facility] Address [address] [place] [address] Phone Care Team Providers Care Warehouse Picker Name Role Phone Unavailable Primary Care Provider Unavailabl e Social History Tobacco UseTypesPacks/DayYears UsedDateSmoking Tobacco: Never Assessed CommentsUnknownSex and Gender InformationValueDate RecordedSex Assigned at Not on fileLegal KxkToioap43/24/2023 1:11 PM EDTGender IdentityNot on fileSexual OrientationNot on file Plan of Treatment Health MaintenanceDue DateLast DoneCommentsCT Ywtyiwtjfubu1970Colonoscopy 1970Colorectal Cancer Sgcwfqztq1970FIT-DNA (Cologuard)1970FIT 1970HIV Xykwqqoki1970Lipid Panel1970 3241Rymortjoxpbtr1970 Yearly Adult Ohzgmrhr1970MMR Vaccines (1 of 1 - Standard series)1971 Hepatitis C Alcqlnjzr65/23/1988Hepatitis B Vaccines (1 of 3 - 19+ 3-dose series) 1989Cervical Cancer Zppjefnpm35/23/1991HPV/Rclujn6205/28/1991Pap Smear 1991DTaP/Tdap/Td Vaccines (1 - Tdap)05/28/19923773Aobmsgjxj45/23/2010 Pneumococcal Vaccine (1 of 1 - PCV)2020Zoster [...]
--- OUTSIDE RECORDS SUMMARY | 2025-08-12 07:42 | XMS_ITS | Patient Health Record ---
Author Organization [facility] Address [address] [place] [address] Care Team Providers Care Inspector Watch Train Name Role Phone Edelmira Tapiaela Primary Care Provider Unavailabl e Allergies Allergen (clinical drug ingredient) Drug/Non Drug Allergy documented on EMR Reaction Allergy Type Onset Date Status penicillin (uncoded)UnknownAllergyActiveFlexerilUnknownDrug AllergyActive Reason For Referral No Information Social History Tobacco Use: Social History Observation Description Date Details (start date - stop date) Never Smoker NA - NA AUDIT-C (Standard) Question Answer Notes Did you have a drink containing alcohol in the p ast year? No Eeljpw5LpqpeqahpppqvaBhapgudmRbvawwh Control (Standard) Question Answer Notes Tobacco use: Nonsmoker Problems Problem Type SNOMED Code ICD Code Onset Dates Problem Status W/U Status Risk Notes Problem Contusion of knee (72645177) Contusion of knee, left (S80.02XA) ActiveconfirmedProblemContusion of left knee (29270237149961730)Contusion of left knee, subsequent encounter (S80.02XD)Activeconfirmed Plan Of Treatment Pending Test Test Name Order Date MRI : Knee W/O Contrast Left - 82617 Insurance Providers Payer Name Payer Address Payer Phone Subscriber Number Group Number Insured Name Patient Relationship to Insured Coverage Start Date Coverage End Date [place] [address] [place] [address] [phone] DOI 24 lt knee CONSTANTINO CARDOSO Self - patient is the insured 4 [facility] [address] [place] [id number], COLLEENIASelf - patient is the insured Medical (General) History Medical History History ICD Code Heart problems: High Blood Pressure
--- OUTSIDE RECORDS SUMMARY | 2025-08-12 07:43 | XMS_ITS | Clinical Summary ---
Author Organization [facility] Address [address] [place] [address] Care Team Providers Care Iron Handler Name Role Phone Unallocated, Noms Provider Primary Care Provi christine Judi Tapia MD Unavailable [phone] Nikki Ayoub Unavailable Allergies Active AllergyReactionsCriticalityNoted DateCommentsCyclobenzaprineSwellingHigh 04/28/2018 Other Reaction(s): Other, Swelling of Lip/Tongue/Throat, throat swelling UqvytvsdhijovQbdjAnp63/27/2024enicillinsRash,ZcunsrujVxlb42/24/2018 Medications MedicationSigDispense QuantityRefillsLast FilledStart DateEnd DateStatus cholecalciferol (Vitamin D-3) 50 MCG (1999 UT) capsule Take 1 capsule by mouth Daily05/01/2024ctive dicyclomine (Bentyl) 20 MG tablet Take 1 tablet by mouth in the morning and 1 tablet in the evening and 1 tablet before bedtime.Active hyoscyamine (Anaspaz,Levsin) 0.125 MG tablet Take 1 tablet by mouth every 6 (six) hours if wnnxed2605/01/2024ctive lisinopril 20 MG tablet Take 20 mg [...] Immunizations ImmunizationAdministration DatesNext DueInfluenza, seasonal, injectable 06/09/2022Zoster, Mhizcnqnhnd66/23/2024 Family History Medical HistoryRelationNameCommentsAlcohol abuseBrotherCancerFatherDiabetes SisterHypertensionSisterThyroid diseaseSisterAlcohol abuseSonRelationNameStatus CommentsBrotherDaughterx 2AliveFatherDeceasedMotherAliveSisterAliveSonAlive Social History Tobacco UseTypesPacks/DayYears UsedDateSmoking Tobacco: FormerCigarettes Smokeless Tobacco: NeverAlcohol UseStandard Drinks/WeekCommentsNever0 (1 standard drink = 0.6 oz pure alcohol)CommentsUnknownSex and Gender InformationValueDate RecordedSex Assigned at BirthNot on fileLegal SexFemale 11/17/2022 7:39 PM EDTGender IdentityNot on fileSexual OrientationNot on file Last Filed Vital Signs Vital SignReadingTime TakenCommentsBlood Ifnskzbg830/9205 2:15 PM EDT Yzkxl071701/07/2025 2:15 PM EDTTemperature--Respiratory Bcec692701/07/2025 2:15 PM EDTOxygen Slvgznbkrm46%01/07/2025 2:15 PM EDTInhaled Oxygen Concentration-- Aoeeag76.3 kg (188 lb)01/07/2025 2:15 PM BFPOkgytn974.2 cm (5' 7 )01/07/2025 2:15 PM EDTBody Mass Index29.44001/07/2025 2:15 PM EDT Plan of Treatment Health MaintenanceDue DateLast DoneCommentsCT Xzlsfmdxwnjh1970FIT-DNA 1970FIT1970FOBT1970 8700Bxnfiigkovuue1970Pap Smear1991 Cervical Cancer Ygjwbqfjc40/23/2000HPV/Fifzja6505/28/20006109Csjkojdzp71/23/2010COVID- 19 Vaccine ( season)507/, 11/06/2021, 02/26/2021, Additional history existsInfluenza Vaccine (#1)/2Colonoscopy , 05/17/2019Colorectal Cancer Rbvbdtlzp77/09/2030 Pneumococcal Vaccine: Pediatrics (0 to 5 Years) and At-Risk Patients (6 to 64 Years)Aged OutNo longer eligible based on patient's age to complete this topic Insurance Care Teams Team MemberRelationshipSpecialtyStart DateEnd Date Unallocated, Noms MD Edin [address] [place] [address] PCP - General04/25/23 Judi Tapia MD [address] [place] [address] Referring PhysicianFamily Medicine04/25/23 Nikki Ayoub PA [address] [place] [address] Physician AssistantNeurology11/26/24
--- OUTSIDE RECORDS SUMMARY | 2025-08-12 07:43 | XMS_ITS | Clinical Summary ---
Author Organization [facility] Address [id number] [address] [place] [address] Care Team Providers Care Marketing Team Lead Name Role Phone Judi Tapia LONG LINES OPERATOR-FIRE AND EXPLOSION INVESTIGATOR Primary Care Provider Social History Tobacco UseTypesPacks/DayYears UsedDateSmoking Tobacco: Never Assessed CommentsUnknownSex and Gender InformationValueDate RecordedSex Assigned at Not on fileLegal JptWfqvqb73/13/2022 2:17 PM EDTGender IdentityNot on fileSexual OrientationNot on file Plan of Treatment Health MaintenanceDue DateLast DoneCommentsDepression Nievgqaot51/23/1982Tobacco Xnzncmmrg18/23/1982Adult BMI Ktobfhagc09/23/1988DTaP,Tdap and Td Vaccines (1 - Tdap)1989Pap Smear1991Zoster (Shingles) Vaccine (1 of 2)2020 COVID-19 Vaccine ( season)/07/2022, 03/18/2022, 11/06/2021, Additional history existsInfluenza Xpfgybl66/01/2022 Medical Devices Not on file Insurance Care Teams Team MemberRelationshipSpecialtyStart DateEnd Date Judi Tapia, LONG LINES OPERATOR-FIRE AND EXPLOSION INVESTIGATOR [address] [facility] [place] [address] [facility] - [facility]
--- OUTSIDE RECORDS SUMMARY | 2025-08-12 07:43 | XMS_ITS | Clinical Summary ---
Author Organization [facility] Address [address] [place] [address] Care Team Providers Care Newspaper Writer Name Role Phone Judi Tapia REJI Primary Care Provider [phone] Allergies Active AllergyReactionsCriticalityNoted DateCommentsCyclobenzaprineOther, KgsatvagWtts35/24/2018PenicillinsOther,Rash,NogwbgkaQtym00/24/2018 Medications MedicationSigDispense QuantityRefillsLast FilledStart DateEnd DateStatus sertraline [...] TABLET BY MOUTH BEFORE MEALS AND AT QAIDAGI35/05/2025Active Active Problems ProblemNoted DateDiagnosed DateContusion of left knee02/28/2025Pure mcsgkytyjfqbbgmigkcw41/26/2025Screening for colon jgyrek6902/26/2025Other chest pain12/30/2024bdominal kqubtttio89/10/2025Mixed incontinence urge and stress 09/14/20248614Wfonlm73/10/2025Gastroesophageal reflux disease with esophagitis without atgllmituv58/25/2270Nggjldwbefu04/25/2024Major depressive disorder 08/29/20249131Vgdzpzwfuzsi27/09/2024Small bowel aognnwubeiv53/27/2024symptomatic microscopic /15/9929Miduodwyy40/12/2024arrett gcibjclnx31/12/2024 Abdominal pain02/15/2024ark pvinox7702/15/20249615Nainoqxf05/12/2024ysphagia 02/15/2024Elevated pfokmjtk58/12/2024Epigastric abdominal pain02/15/2024 Ujpipfryn36/12/5618Ggmqsisihyfyx21/12/2024Hard stool02/15/2024Heartburn 02/15/2024cid ntfdrr2202/15/2024Essential dmwuiygzhkdi49/12/2024History of repair of hiatal ckvclf6802/15/2024Hx of urinary tract silhhqvgj54/12/2024Irregular bowel dedaqg4102/15/2024Kidney ecvtyg3802/15/20249348Nyoddydgt87/12/2010Fregmgcgizcg67/12/2024 Overweight (BMI 25.0-29.9)02/15/20248402Tmbqebfsvoj51/12/7287Qhauotbz58/12/2024 Strain of lumbar vxehuj5702/15/2024Urinary ijkpbhd4402/15/2024UTI (urinary tract infection)02/15/20244568Gkvalftwhxos61/12/2024Sinus yeiacfjmgea47/12/2024OE (dyspnea on exertion)02/15/2024Obstructive sleep apnea02/15/2024Former smoker 02/15/2024 Resolved Problems ProblemNoted DateDiagnosed DateResolved DateMorbid zwsuqhd82 Family History Medical HistoryRelationNameCommentsCoronary artery diseaseBrotherHeart attack FatherRelationNameStatusCommentsBrotherDeceasedFatherDeceasedMotherAliveSister Alive Social History Tobacco UseTypesPacks/DayYears UsedDateSmoking Tobacco: FormerCigarettes Smokeless Tobacco: Never Tobacco Cessation:Counseling Given: Not Answered Alcohol UseStandard Drinks/WeekCommentsYes0 (1 standard drink = 0.6 oz pure alcohol)seldomUT Safety & EnvironmentAnswerDate RecordedFear of Current or Ex-PartnerNot on file02/08/2024Emotionally AbusedNot on file02/08/2024hysically AbusedNot on file02/08/2024Sexually AbusedNot on file02/08/2024hysically or Sexually AbusedNot on 02/08/2024CommentsUnknownSex and Gender InformationValueDate RecordedSex Assigned at BirthNot on fileLegal SexFemale 03/03/2022 11:53 PM EDTGender IdentityNot on fileSexual OrientationNot on file Last Filed Vital Signs Vital SignReadingTime TakenCommentsBlood Itvfvgcr953/8206 9:40 AM EDT Gtvfj838402/28/2025 9:40 AM ZYIHnmkcamdcho76.4 ??C (97.6 ??F)05/22/2019 1:22 PM EDTRespiratory Rate--Oxygen Xsapxnmqnn60%02/28/2025 9:40 AM EDTInhaled Oxygen Concentration--Zizpfe10.7 kg (189 lb)02/28/2025 9:40 AM CBCFpeyjs076.2 cm (5' 7 )02/28/2025 9:40 AM EDTBody Mass Index29.6002/28/2025 9:40 AM EDT Plan of Treatment DateTypeDepartmentCare Team (Latest Contact Info)Gtkajqflmvl53/05/2026 10:20 AM ESTOffice Visit [facility] [address] [place] [address] Elio Heart MD [address] [facility] [address] [place] [address] Health MaintenanceDue DateLast DoneCommentsCT Iderrlzvsblx1970FIT-DNA 1970FIT1970 9392Ztazmrdxmhsjm1970Depression Mkofwkthx94/23/1982 Hepatitis B Vaccines (1 of 3 - 19+ 3-dose series)1989Pap Smear1991 Adult Olvdnza8105/28/1992Cervical Cancer Msngyxesc88/23/2000HPV/Npobxw5105/28/2000 Fjqeadjpr56/23/1990BJDI99COVID-19 Vaccine (2024- season) , 03/18/2022, 11/06/2021, Additional history existsInfluenza Vaccine (#1)2Colonoscopy, 05/17/2019 Colorectal Cancer Ajgogeepl24/09/2030Zoster PuwnjhwjVbemzmqnp17/17/2025, 04/27/2024HIB VaccinesAged OutNo longer eligible based on [...] Procedures Procedure NamePriorityDate/TimeAssociated DiagnosisCommentsOCCULT BLOOD X 1, ISOUQPGXI23/11/2019 10:20 PM EST from Last 3 Months [...] Team MemberRelationshipSpecialtyStart DateEnd Date Judi Tapia CNP [address] [place] [address], [facility] [place] [address] PCP - GeneralFasdly Medicine02/14/24
--- OUTSIDE RECORDS SUMMARY | 2025-08-12 07:45 | XMS_ITS | CCD ---
Author Organization [facility] CliniSynh Care Team Providers Care Preventive Medicine Officer Name Role Phone LEONA MORTENSEN Admitting Unavailable LEONA MORTENSEN Attending Unavailable KEVIN HERRERA Primary Care Unavailable KEVIN HERRERA Referring Unavailable AR Procedure Practitioner Unavailab ORESTES Cruz Surgeon Unavailable JUDI YOUSSEF Primary Care Physician [phone] DONI Youssef Primary Care Provider DO Conner Griffith Emergency Provider [phone] Jennie Ayon Unavailable MD Jennie Ayon Attending Provider DR JOHNATHAN RUDOLPH Attending Unavailibis RUDOLPH, DR JOHNATHAN Botello Consulting Unavailibis RUDOLPH, DR JOHNATHAN Botello Admitting Unavailabl e REGINA, JUDI Primary Care Unavailable REGINA, JUDI Primary Care Unavailable GARETH Larson, DR GR Attending Unavailable GARETH ., DR GR Consulting Unavailable GARETH Larson, DR GR Admitting Unavailable ASHLEE APPLE Consulting Unavailable REGINA, JUDI Admitting Unavailable REGINA, JUDI Primary Care Unavailable JUDI YOUSSEF Attending Unavailable KATHRIN VANCE Admitting Unavailable REGINA, JUDI Primary Care Unavailable DR CASSANDRA PUENTE V Consulting Unavailable KATHRIN VANCE Attending Unavailable ISAAK Larson, DR BROWN Consulting Unavailable KATHRIN VANCE Consulting Unavailable PA, DR NORA Hairston Attending Unavailable PA, DR NORA Hairston Consulting Unavailable REGINA, JUDI Primary Care Unavailable DR NORA WINN Admitting Unavailable GUILLERMO ALLEN Consulting Unavailable SHAIKH Juan Luis DAVIS Admitting Unavailable REGINA, JUDI Primary Care Unavailable DR GUILLERMO VANESSA [...] Admitting Unavailable REGINA, JUDI Primary Care Unavailable TERRIE, DR RUSH Hairston Consulting Unavailable REGINA, JUDI Attending Unavailable REGINA, JUDI Consulting Unavailable REGINA, JUDI Admitting Unavailable REGINA, JUDI Consulting Unavailable REGINA, JUDI Attending Unavailable RGEINA, JUDI Primary Care Unavailable FAB ., BALTAZAR Consulting Unavailable FAB ., BALTAZAR Admitting Unavailable FAB ., BALTAZAR Attending Unavailable REGINA, JUDI Primary Care Unavailable REGINA, JUDI Admitting Unavailable ZIEBER, DR RUSH Hairston Consulting Unavailable REGINA, JUDI Attending Unavailable REGINA, JUDI Primary Care Unavailable REGINA, JUDI Consulting Unavailable REGINA, JUDI Primary Care Unavailable ISAAK Larson, DR [...] Primary Care Unavailable REGINA, JUDI Consulting Unavailable Regina, TECHNICAL PROJECT COORDINATOR-C Judi Franco Primary Care Provider 1( [phone] GladisDO Conner Ferreira Emergency Provider DO Pete Thakkar Emergency Provider [facility] Primary Care Provider Rafa Rangel Unavailable [phone] Renny Omalley Unavailable MARQUES BRADLEY Referring Unavailable [facility], [facility] Primary Care Unavailable PAVLOCK, [facility] Primary Care Unavailable KROHMARQUES Referring Unavailable KROH, MARQUES Patel Attending Unavailable IMER CHERRY Referring Unavailable PAVLOCK, [facility] Primary Care Unavailable PAVLOCK, [facility] Primary Care Unavailable KROH, MARQUES Patel Referring Unavailable OLIVER TORRES Attending Unavailable KROH, MARQUES Patel Referring [facility]available [facility] Primary Care Unavailable AMERICO MONTALVO Attending Unavailable KROH, MARQUES Patel Referring Unavailable [facility] Primary Care Unavailable SLYSLY Attending Unavailable KROH, MARQUES Patel Referring Unavailable [facility] Primary Care Unavailable ARCELIA SHAW Attending Unavailable Orzech, Yolanda X Attending Unavailable Orzech, Yolanda X Admitting Unavailable DONI Youssef Judi Franco Primary Care Provider MD Jennie Ayon Attending Provider [phone] Unallocated , [place] Provider Primary Care Provi christine Judi Youssef MD Unavailable No, Pcp Primary Care Provider Unavailibis Youssef VICE ADMIRAL - BULK GAS SPECIALIST, Judi S Primary Care Provide r Eliezer Lorenzo Admitting Unavailable Eliezer Lorenzo Attending Unavailable Orapryl, Yolanda X Attending Unavailable Randy Rush Consulting Unavailable MD Rush Padilla Consulting Unavailable Randy Rush Consulting Unavailable Randy Rush Consulting Unavailable Rush Padilla Consulting Unavailable Rush Padilla Consulting Unavailable Randy Rush Consulting Unavailable Randy Rush Consulting Unavailable Randy Rush Consulting Unavailable Eliezer Lorenzo Admitting Unavailable Eliezer Lorenzo Attending Unavailable Rush Padilla Consulting Unavailable MD Rush Padilla Consulting Unavailable [place], Rush Consulting Unavailable [place], Rush Consulting Unavailable [place], Rush Consulting Unavailable [place], Rush Consulting Unavailable [place], Ursh Consulting Unavailable [place], Rush Consulting Unavailable [place], Rush Consulting Unavailable Nikki Zhang Unavailable Nicanor Perez MD Attending Provider NIKKI AYOUB Attending Unavailable NIKKI AYOUB Attending Unavailable COSME, AHMAD F Attending Unavailable COSME, AHMAD F Referring Unavailable COSME, AHMAD F Attending Unavailable Prosper Bergman Attending Unavailable AVASTHShaila, OBDULIO Attending Unavailable JUDI YOUSSEF Primary Care Unavailable MIGUEL WILD Consulting Unavailable AVASTHI, OBDULIO Admitting Unavailable AVASTHI, OBDULIO Consulting Unavailable EDISON KINCAID Attending Unavailable EDISON KINCAID Attending Unavailable EDISON KINCAID Attending Unavailable EDISON KINCAID Attending Unavailable EDISON KINCAID Attending Unavailable Saffle Kailey DORAN Emergency Provider Regina TECHNICAL PROJECT COORDINATOR-CJudi Primary Care Provider JUDI YOUSSEF Primary Care Unavailable JANUSZ, AIJAZ Admitting Unavailable JANUSZ, AIJAZ Attending Unavailable NO, PCP Primary Care Unavailable Binh, Rambo Talal Admitting Unavaila ble Sagemini, Rambo Dietrich Attending Unavaila ble Binh, Rambo Dayal Referring Unavaila Kailey Tovar Admitting Unavailable Kailey Mosley Attending Unavailable Judi Youssef Primary Care Unavailable Chris Nicanor Admitting Unavailable Nicanor Perez Attending Unavailable Asaad, Imad Admitting Unavailable Asaad, Imad Attending Unavailable Judi Youssef Primary Care Unavailable Rambo Purcell Attending Unavaila ble Sagemini, Ricks Talal Referring Unavaila ble Sarminshaila, Ricks Talal Admitting Unavaila ble Prosper Bergman Attending Unavailable SarminRambo linton Attending Unavaila ble Sarmini, Rambo Dietrich Attending Unavaila ble Flavio JUAREZ Attending Unavailable JUDI YOUSSEF Referring Unavailable Flavio JUAREZ Attending Unavailable Flavio JUAREZ Admitting Unavailable Flavio JUAREZ Attending Unavailable Flavio JUAREZ Referring Unavailable Regina MARION, Judi Franco Primary Care Provider Eileen Fisher APRN Attending Provider Allergies Allergy ClassificationReported Allergen(s)Allergy TypeDate of OnsetReaction(s) Facility (12 sources)cyclobenzaprine; Translations: [CYCLOBENZAPRINE]Drug Allergy 05-95-1246Lnanvckr of Lip/Tongue/Throat, Swelling of Lip/Tongue/Throat, throat swellingThe [facility] (13 sources)Penicillins; Translations: [PENICILLINS]Drug allergy (disorder) 67-61-2089RnmjZxrC[facility] (20 sources)cyclobenzaprine; Translations: [cyclobenzaprine]Drug Allergy 33-08-2296Wqrduuigex swelling (finding), Swelling, Other (See Comments)[facility] (20 sources)Penicillin; Translations: [penicillin]Drug Vsrgoqu12-73-4498Fqhpuymq (morphologic abnormality), SwellingExec[facility] (16 sources)penicillAMINEDrug Ejjrtdi51-68-4512orsyEttsqzygdThe [facility] (2 sources)cyclobenzaprineDrug Tvggyey74-46-4147Oii [facility] Repository (1 source)traMADolDrug AllergyMount St. [facility] Repository (1 source)traMADolDrug AllergyMount St. [facility] Repository (11 sources)penicillAMINEDrug Qotyheo29-74-0444RrwcFNDI Healthcare (11 sources)PenicillinsDrug Sausuvp15-17-8276Mkhg, [facility] (3 sources)PenicillinsPropensity to adverse reactions to ixxu64-19-6454Vinfh (See Comments), Rash, SwellingBon [facility] (1 source)cyclobenzaprineDrug Jrqmjui65-32-2378XlpcumvqaAdena [facility] Repository (1 source)penicillAMINEDrug Uxbteib84-91-1459KjmyjhqqgAdena [facility] Repository (1 source)PenicillinsDrug allergy (disorder)61-34-2455Tmbbemxwi[address] [place] [address] Repository Medications Current Medications MedicationDrug Class(es)DatesSig (Normalized)Sig (Original)acarbose 25 mg oral tablet (15 sources)alpha-Glucosidase InhibitorStart: 07-13-2024 End: 10-49-7760ynoo 1 tablet by mouth once dailyacarbose 25 mg oral tablet 25 mg = 1 tab(s), Oral, Daily, Refills(s) 0, Blood glucose Start Date: 10/19/24 Status: Ordered Repeat number: 1Start: 07-13-2024 End: 03-22-4738ndqk 1 tablet by mouth twice dailyacarbose (PRECOSE) 25 MG tablet Take 1 tablet by mouth 2 times daily 07/16/2024 ActiveAcetaminophen (17 sources)Start: 89-85-7379uoaqbcuiovkyq (TYLENOL) tablet 650 mgStart: 87-12-4153enrw 1 tablet by mouth every four hours as needed for painTylenol 325 mg Tab 325 mg = 1 tab(s), Oral, q4hr, PRN Pain, Refills(s) 0 Start Date: 01/16/20 Status: Ordered Repeat number: 1 Indications: Unspecified abdominal pain; acetaminophen 325 mg / butalbital 50 mg / caffeine 40 mg oral tablet (11 sources)Barbiturate, Central Nervous System Stimulant, MethylxanthineStart: 48-36-4568botb 1 tablet by mouth every twelve hours as needed for headache APAP/butalbital/caffeine 325 mg-50 mg-40 mg Tab 1 tab(s), Oral, q12hr as needed for headache, Refill(s) 0, as needed Start Date: 07/22/20 Status: Ordered albuterol HFA 90 mcg/inh MDI (11 sources)Start: 03-81-5278jhvs 2 puff(s) by inhalation every four hours as needed for wheezingalbuterol HFA 90 mcg/inh MDI 2 puff(s), Inhalation, q4hr as needed for Shortness of breath or wheezing, Refill(s) 0 Start Date: 01/14/20 Status: Orderedaspirin 81 mg delayed release oral tablet (11 sources)Platelet Aggregation Inhibitor, Nonsteroidal Anti-inflammatory Drug Start: 93-73-5992uyom 1 tablet by mouth once dailyaspirin 81 mg Oral EC Tab 81 mg = 1 tab(s), Oral, Daily, # 30 tab(s), Refills(s) 0, [id number] 170.2, cm, 10/19/24 17:25:00 EST, Height/Length Dosing, 90.5, kg, 10/19/24 17:25:00 EST, Weight Dosing Start Date: 10/20/24 Status: Ordered Quantity: 30.0 Unit: tab(s) Repeat number: 1azithromycin 250 mg oral tablet (3 sources)Macrolide AntimicrobialStart: 89-95-7460dcfcnyxksbig 250 mg Tab 250 mg, Oral, As Directed, # 6 tab(s), Refills(s) 0 Start Date: 02/16/24 Status: Orderedbisacodyl 5 mg delayed release oral tablet (1 source)Stimulant LaxativeStart: 77-55-5294jslqudyrs 5 MG EC tablet Take as directed for bowel prep/colonoscopy 4 tablet 02/26/2025 Activecholecalciferol 0.05 mg oral capsule (19 sources)Vitamin DStart: 28-56-7416zlgi 1 capsule by mouth once daily colestipol hydrochloride 1000 mg oral tablet (1 source)Bile Acid SequestrantStart: 31-03-2996wetd 2 tablets by mouth once dailyColestid 1 g Tab 2 gm = 2 tab(s), Oral, Daily, # 60 tab(s), Refills(s) 3, Pharmacy: [facility]/pharmacy #[id number], 170, cm, 06/05/25 10:14:00 EDT, Height/Length Dosing, 89.9, kg, 06/05/25 10:14:00 EDT, Weight Dosing Start Date: 06/05/25 Status: Ordered Quantity: 60.0 Unit: tab(s) Repeat number: 4dicyclomine hydrochloride 10 mg oral capsule (20 sources)AnticholinergicStart: 03-27-2025 End: 60-36-4319bhsv 1 capsule by mouth four times dailyBentyl 10 mg Cap 10 mg = 1 cap(s), Oral, QID, X 14 day(s), # 56 cap(s), Refills(s) 0, Pharmacy: [facility]/ pharmacy #[id number], 170, cm, 03/27/25 10:23:00 EDT, Height/Length Dosing, 86.9, kg, 03/27/25 10:23:00 EDT, Weight Dosing Start Date: 03/27/25 Stop Date: 04/10/25 Status: Ordered Quantity: 56.0 Unit: cap(s) Repeat number: 1 Indications: Pearce's esophagus without dysplasia; Dysphagia, unspecified; Foreignbody sensation, throat; Lower abdominal pain, unspecified;Start: 98-03-0889jpam 1 capsule by mouth four times daily as needed for paindicyclomine (BENTYL) 10 MG capsule Take 1 capsule by mouth 4 times daily as needed (pain lower abdomen) 45 capsule 2 02/26/2025 ActiveStart: 02-15-2023 End: 45-96-2845qhey 1 capsule by mouth four times dailyDicyclomine 10 mg Capsule Discontinued 10 MG PO Four times daily February 15, 2023 12:00am May 01, 2024 9:31amStart: 02-15-2023 End: 09-95-0169sdrm 1 capsule by mouth three times dailyDicyclomine 10 mg capsule Discontinued 10 MG PO Three times daily 10 0 February 15, 2023 12:00am 2022 6:41amStart: 05-05-2021 End: 23-70-5719wrmx 1 capsule by mouth four times dailyBentyl 10 mg Cap 10 mg = 1 cap(s), Oral, QID, X 30 day(s), # 120 cap(s), Refills(s) 11, Pharmacy: [facility]/pharmacy #[id number], 170, cm, 05/05/21 14:15:00 EDT, Height/Length Dosing, 83.1, kg, 05/05/21 14:15:00EDT, Weight Dosing Start Date: 05/05/21 Stop Date: 04/30/22 Status: OrderedStart: 37-67-8545gmij 2 capsules by mouth four times dailyBentyl 10 mg Cap 20 mg = 2 cap(s), Oral, QID, # 20 cap(s), Refills(s) 0, Pharmacy: [facility]/pharmacy #[id number], 170, cm, 09/20/20 16:03:00 EST, Height/Length Dosing, 87.5, kg, 09/20/20 16:03:00 EST, Weight Dosing Start Date: 09/20/20 Status: Ordered dicyclomine (BENTYL) 20 MG tablet Take 1 tablet by mouth Activetake 1 tablet by mouth every eight hoursDicyclomine HCl 20 MG 1 tablet Orally Three times a day ActiveComment on above:Take 20 mg by mouth before meals and at bedtime. esomeprazole 40 mg delayed release oral capsule (1 source)Proton Pump InhibitorStart: 06-05-2025 End: 98-62-2828wemy 1 capsule by mouth twice dailyNexium 40 mg Cap-EC 40 mg, Oral, BID, Pharmacy may substitue PPI covered by insurance [employer], X 90day(s), # 180 cap(s), Refills(s) 3, [id number] 170, cm, 06/05/25 10:14:00 EDT, Height/Length Dosing, 89.9, kg, 06/05/25 10:14:00 EDT, Weight Dosing Start Date: 06/05/25 Stop Date: 05/31/26 Status: Ordered Quantity: 180.0 Unit: cap(s) Repeat number: 4estradiol 0.1 mg/ml vaginal cream (8 sources)EstrogenStart: 63-63-0676Lxblwkr 0.1 mg/g Cream 1 gm, Vaginal, As Directed, 42.5 gm, Refill(s) 3, Apply pea-sized amount around urethra every night x 3 weeks, then 2 times weekly for maintenance, [id number] 170, cm,02/16/24 9:10:00 EDT, Height/Length Dosing, 81.7, kg, 02/16/24 9:10:00 EDT, Weight Dosing Start Date: 02/16/24 Status: Ordered Quantity: 42.5 Unit: g Repeat number: 4 Indications: Urinary tract infection, site not specified;famotidine 40 mg oral tablet (20 sources)Histamine-2 Receptor AntagonistStart: 78-17-4379ysbf 1 tablet by mouth once daily at bedtimefamotidine 40 mg Tab 40 mg = 1 tab(s), Oral, Once a day (at bedtime), # 90 tab(s), Refills(s) 3, [id number] 170, cm, 06/05/25 10:14:00 EDT, Height/Length Dosing, 89.9, kg, 06/05/2510:14:00 EDT, Weight Dosing Start Date: 06/05/25 Status: Ordered Quantity: 90.0 Unit: tab(s) Repeat number: 4Start: 01-28-2022 End: 28-39-7346cjtj 1 tablet by mouth once daily at bedtimePepcid 20 mg Tab 20 mg = 1 tab(s), Oral, Once a day (at bedtime), X 90 day(s), # 90 tab(s), Refills( s) 0, Pharmacy: [facility]/pharmacy #[id number], 170, cm, 01/28/22 13:40:00 EDT, Height/Length Dosing, 84.5, kg,01/28/22 13:40:00 EDT, Weight Dosing Start Date: 01/28/22 Stop Date: 04/28/22 Status: OrderedStart: 02-27-2019 End: 79-57-9861lqxe 1 tablet by mouth twice dailyFamotidine (Pepcid) 20 mg tablet Discontinued 20 MG PO Twice daily 60 30 0 February 27, 2019 12:00am June 21, 2019 1:42pmStart: 03-28-2018 End: 02-73-1473neyy 1 tablet by mouth twice dailyFamotidine (Pepcid) 20 mg tablet Discontinued 20 MG PO Twice daily 30 42 0 March 28, 2018 12:00am [facility] 2017 12:00am May 09, 2018 12:01amhyoscyamine sulfate 0.125 mg oral tablet (19 sources)Start: 56-67-4080ynqt 1 tablet by mouth every six hours as needed hyoscyamine (Anaspaz,Levsin) 0.125 MG tablet Take 1 tablet by mouth every 6 (six) hours if needed 05/01/2024 ActiveStart: 15-58-6822lvvn 1 tablet by mouth once dailytake 1 tablet by mouth every four hours as neededhyoscyamine (ANASPAZ;LEVSIN) 0.125 MG tablet Take 1 tablet by mouth every 4 hours as needed for Cramping ActiveIbgard 90 mg oral delayed release capsule (2 sources)Start: 69-55-1012cpac 2 capsules by mouth twice dailyIbgard 90 mg oral delayed release capsule 180 mg = 2 cap(s), Oral, BID, # 48 cap(s), Refills(s) 3, Pharmacy: [facility]/pharmacy #[id number], 170, cm, 06/05/25 10:14:00 EDT, Height/Length Dosing, 89.9, kg, 06/05/25 10:14:00 EDT, Weight Dosing Start Date: 06/05/25 Status: Ordered Quantity: 48.0 Unit: cap(s) Repeat number: 4Start: 32-76-2902jayf 2 capsules by mouth twice dailyIbgard 90 mg oral delayed release capsule 180 mg = 2 cap(s), Oral, BID, # 60 cap(s), Refills(s) 3, Pharmacy: [facility]/pharmacy #[id number], 170, cm, 03/27/25 10:23:00 EDT, Height/Length Dosing, 86.9, kg, 03/27/25 10:23:00 EDT, Weight Dosing Start Date: 03/27/25 Status: Ordered Quantity: 60.0 Unit: cap(s) Repeat number: 4 Indications: Pearce's esophagus without dysplasia; Dysphagia, unspecified; Foreign bodysensation, throat; Lower abdominal pain, unspecified;1 ml ketorolac tromethamine 30 mg/ml cartridge (2 sources)Nonsteroidal Anti-inflammatory Drug, Cyclooxygenase InhibitorStart: 08-28-2024 End: 77-65-702288 mg, IntraVENous, EVERY 6 HOURS PRN, Starting on Tue08/28/24 at 2309, Until 09/02/24 at 2308, Pain Severe (7-10), Do not administer for more than 5 days.Start: 08-28-2024 End: 18-72-253764 mg, IntraVENous, ONCE, 1 dose, On Tue08/28/24 at 1800 labetalol hydrochloride 5 mg/ml injectable solution (1 source)beta-Adrenergic BlockerStart: 35-92-1571ppoGVVFHhevmf 1000 mg oral tablet (15 sources)Start: 28-59-1442dtat 1 tablet by mouth twice dailyStart: 01-07-2025 take 1 tablet by mouth in the morninglevETIRAcetam (Keppra) 1000 MG tablet Indications: Seizure (CMS/HCC) Take 1 tablet (1,000 mg) by mouth in the morning and 1 tablet (1,000 mg) before bedtime. 60 tablet 3 01/07/2025 ActiveStart: 11-26-2024 End: 08-59-7874tpwg 1 tablet by mouth in the morninglevETIRAcetam (Keppra) 750 MG tablet Indications: Seizure (CMS/HCC) Take 1 tablet (750 mg) by mouthin the morning and 1 tablet (750 mg) before bedtime. 60 tablet 2 11/26/2024 01/07/2025 Discontinued(Reorder)Start: 10-20-2024 End: 58-26-5963hyti 1 tablet by mouth twice dailyKeppra 500 mg Tab 500 mg = 1 tab(s), Oral, BID, # 60 tab(s), Refills(s) 0, Pharmacy: [facility]/pharmacy #[id number], 170.2, cm, 10/19/24 17:25:00 EST, Height/Length Dosing, 90.5, kg, 10/19/24 17:25:00 EST, Weight Dosing Start Date: 10/20/24 Status: Ordered Quantity: 60.0 Unit: tab(s) Repeat number: 110 ml lidocaine hydrochloride 10 mg/ml injection (13 sources)Antiarrhythmic, Amide Local AnestheticStart: 08-17-2024 End: 56-97-5812uyme 1 dose intravenously once daily1 mL, IntraDERmal, ONCE PRN, 1 dose, Starting on Tue08/17/24 at 1120, Until 08/18/24 at 1120, IV start, Pre-op (day of surgery)Start: 00-04-8839EOBEAQTDY VISCOUS 2 % solutionlisinopril 40 mg oral tablet (20 sources)Angiotensin Converting Enzyme InhibitorStart: 93-65-8206gpti 1 tablet by mouth once dailylisinopril 40 mg Tab 40 mg = 1 tab(s), Oral, Daily, Refills(s) 0, High blood pressure Start Date: 03/27/25 Status: Ordered Repeat number: 1Start: 03-19-2024 End: 40-90-7152dluy 1 tablet by mouth once dailyStart: 03-19-2024 End: 02-88-8735qrbm 1 tablet by mouth once dailylisinopril 20 MG tablet Take 20 mg by mouth Daily 03/19/2024 03/19/2025 Ezdzox69 ml magnesium sulfate 40 mg/ml injection (1 source)Start: hr metoprolol succinate 50 mg extended release oral tablet (20 sources)beta-Adrenergic BlockerStart: 10-12-5147jyur 50 mg by mouth once daily50 mg, Oral, DAILY, First dose on Tue08/28/24 at 1545, Until Discontinued, Do not crush or chew.Start: 05-01-2024 End: 56-06-2658rkoq 1 tablet by mouth once dailyStart: 02-15-2024 End: 66-22-0152mpku 1 tablet by mouth every twenty-four hours in the morning metoprolol succinate XL (Toprol-XL) 50 MG 24 hr tablet Take 50 mg by mouth in the morning. 02/15/2024 02/14/2025 ActiveMulti Vitamins oral tablet (5 sources)Start: 14-17-7522Zukno Vitamins oral tablet 1 tab(s), Oral, Daily, 30 tab(s), Refill(s) 0, [id number], 170.2, cm, 10/19/24 17:25:00 EST, Height/Length Dosing, 90.5, kg, 10/19/24 17:25:00 EST, Weight Dosing Start Date: 10/20/24 Status: Ordered Quantity: 30.0 Unit: tab(s) Repeat number: 1Start: 95-40-7312Oozqq Vitamins oral tablet 1 tab(s), Oral, Daily, 30 tab(s), Refill(s) 0, [id number], 170.2, cm, 10/19/24 17:25:00 EST, Height/Length Dosing, 90.5, kg, 10/19/24 17:25:00 EST, Weight Dosing Start Date: 10/20/24 Status: Orderednitrofurantoin, macrocrystals 25 mg / nitrofurantoin, monohydrate 75 mg oral capsule (11 sources)Nitrofuran AntibacterialStart: 03-00-7324sdng 1 capsule by mouth twice daily at mealtimeStart: 06-21-2019 End: 87-52-3563etkj 1 capsule by mouth twice daily at mealtimeNitrofurantoin Monohyd/M-Cryst (Macrobid) 100 mg capsule Discontinued 100 MG PO Twice daily 14 7 0 June 21, 2019 12:00am February 15, 2023 9:46am must administer with a meal/foodomeprazole 20 mg Cap-DR (1 source)Start: 39-28-7312jcka 1 capsule by mouth once dailyomeprazole 20 mg Cap-DR 20 mg = 1 cap(s), Oral, Daily, # 90 cap(s), Refills(s) 3, Pharm[facility]: [id number], 170, cm, 01/11/22 9:17:00 EDT, Height/Length Dosing, 83, kg, 01/11/22 9:17:00 EDT, Weight Dosing Start Date: 01/11/22 Status: Ordered omeprazole 40 mg Cap-DR (1 source)Start: 01-28-2022 End: 07-95-9841aszw 1 capsule by mouth once dailyomeprazole 40 mg Cap-DR 40 mg = 1 cap(s), Oral, Daily, X 90 day(s), # 90 cap(s), Refills(s) 0, [id number] 170, cm, 01/28/22 13:40:00 EDT, Height/Length Dosing, 84.5, kg, 01/28/22 13:40:00 EDT, Weight Dosing Start Date: 01/28/22 Stop Date: 04/28/22 Status: Orderedondansetron 4 mg disintegrating oral tablet (20 sources)Serotonin-3 Receptor AntagonistStart: 98-27-2630tsrilvjswof 4 mg Dis Tab Refills(s) 0, Nausea/Vomiting Start Date: 03/27/25 Status: Ordered Repeat nu mber: 1Start: 02-16-2025 End: 80-51-9250cokr 1 tablet by mouth every six hoursondansetron 4 mg Dis Tab 4 mg = 1 tab(s), Oral, q6hr, X 3 day(s), # 10 tab(s), Refills(s) 0, Pharmacy: [facility]/pharmacy #[id number], 170.2, cm, 02/16/25 18:59:00 EDT, Height/Length Dosing, 85.2, kg, 02/16/25 18:59:00 EDT, Weight Dosing Start Date: 02/16/25 Stop Date: 02/19/25 Status: Ordered Quantity: 10.0 Unit: tab(s) Repeat number: 1Start: 02-15-2023 End: 03-02-7284mpph 1 tablet by mouth once dailyOndansetron 4 mg tablet,disintegrating Discontinued 4 MG PO Daily February 15, 2023 12:00am March 23, 2023 6:41amStart: 99-39-8717srkf 1 tablet by mouth every eight hoursZofran 4 mg Tab 4 mg = 1 tab(s), Oral, q8hr, # 20 tab(s), Refills(s) 1 Start Date: 05/10/19 Status: Orderedtake 1 tablet by mouth every eight hours as needed ondansetron (ZOFRAN) 8 mg tablet Take 8 mg by mouth every 8 hours as needed for nausea/vomiting. 0 ActiveComment on above:Take 8 mg by mouth every 8 hours as needed for nausea/vomiting.ondansetron (ZOFRAN-ODT) disintegrating tablet 4 mg (1 source)Start: 63-32-0915drqtejsdkfi (ZOFRAN-ODT) disintegrating tablet 4 mg pantoprazole 40 mg delayed release oral tablet (20 sources)Proton Pump InhibitorStart: 74-92-5963Ehhogweaznll [address] Tab 40 mg = 1 tab(s), Oral, Refills(s) 0, Control of stomach acid Start Date:03/27/25 Status: Ordered Repeat number: 1Start: 92-06-9055fdgz 40 mg by mouth once daily before cflnoddkb76 mg, Oral, DAILY BEFORE BREAKFAST, First dose on Tue08/31/24 at 0700, Until Discontinued, Do notcrush or break.Start: 02-15-2023 End: 97-87-7892qlxm 1 tablet by mouth once dailyPantoprazole 40 mg tablet,delayed release (DR/EC) Discontinued 40 MG PO Daily 56 56 0 May 11, 2024 12:00am May 16, 2024 4:20pmStart: 04-13-2018 End: 34-20-6702rjkb 1 tablet by mouth twice dailyPantoprazole 40 mg Tablet,Delayed Release (Dr/Ec) Discontinued 40 MG PO Twice daily November 12, 2018 1:00am February 25, 2019 6:46pmStart: 04-05-2018 End: 91-54-1542gbjx 1 tablet by mouth once dailyPantoprazole (Protonix) 40 mg Tablet,Delayed Release (Dr/Ec) Discontinued 40 MG PO Daily April 05, 2018 12:00am April 13, 2018 11:34ampolyethylene glycol 3350 29093 mg powder for oral solution (12 sources)Osmotic LaxativeStart: 82-27-1719dtsccoldmjua glycol (MIRALAX) 17 GM/SCOOP powder Take per bowel prep instructions 238 g 02/26/2025 ActiveStart: 08-30-2024 End: 84-07-3351dlhcahgaibbi glycol (GLYCOLAX) 17 GM/SCOOP powder Take 17 g by mouth daily for 20 days 116 g 2 08/30/2024 09/19/2024 ActiveStart: 09-87-675891 g, Oral, DAILY, First dose on Tue08/29/24 at 1100, Until Discontinued, Stir and dissolve one packet of powder (17 g) in any 4 to 8 ounces of beverage (cold, hot or room temperature) then drinkStart: 02-15-2023 End: 21-90-2220Ghsqimncmyez Glycol 3350 (Miralax) 17 gram Powder In Packet Discontinued 17 GM PO Daily February 15, 2023 12:00am May 11, 2024 8:09am polyethylene glycol 3350 234902 mg / potassium chloride 1480 mg / sodium bicarbonate 5720 mg / sodium chloride 07825 mg powder for oral solution (1 source)Osmotic LaxativeStart: 40-16-0324KrWTNJKT Eads oral powder for reconstitution See Instructions, 1 EA, Refill(s) 0, follow up physicians insctructions, [facility]/pharmacy #[id number], 170, cm, 03/27/25 10:23:00 EDT, Height/Length Dosing, 86.9,kg, 03/27/25 10:23:00 EDT, Weight Dosing Start Date: 03/27/25 Status: Ordered Quantity: 1.0 Unit: EARepeat number: 1 Indications: Pearce's esophagus without dysplasia; Change in bowel habit; Dysphagia, unspecified; Foreign body sensation, throat; Lower abdominal pain, unspecified;psyllium 3400 mg powder for oral suspension (3 sources)Start: 49-09-6259Lguayuqft 3.4 g/5.2 g oral powder 3.4 gram, Oral, TID, PRN for constipation, # 1,042 gram, Refills(s) 0, Pharmacy: [facility]/pharmacy #[id number], 170, cm, 03/27/25 10:23:00 EDT, Height/Length Dosing, 86.9, kg, 03/27/25 10:23:00 EDT, Weight Dosing Start Date: 03/27/25 Status: Ordered Quantity: 1042.0 Unit: g Repeat number: 1 Indications: Pearce's esophagus without dysplasia; Change in bowel habit; Dysphagia,unspecified; Foreign body sensation, throat; Lower abdominal pain, unspecified;sennosides, alf 8.6 mg oral tablet (3 sources)Start: 08-30-2024 End: 85-62-2549bxmq 1 tablet by mouth once dailysenna (SENOKOT) 8.6 MG tablet Take 1 tablet by mouth daily for 15 days 15 tablet 08/30/2024 09/14/2024 Active Start: 08-29-2024 End: 35-71-4901boua 1 tablet by mouth twice daily as needed for constipation senna (SENOKOT) 8.6 MG tablet Take 1 tablet by mouth 2 times daily as needed for Constipation 60 tablet 08/30/2024 08/30/2024 Discontinuedsertraline 50 mg oral tablet (20 sources)Serotonin Reuptake InhibitorStart: 32-09-4394gvzd 1 tablet by mouth once dailysucralfate 100 mg/ml oral suspension (20 sources)Aluminum ComplexStart: 30-76-5334ygutmbcigu 1 g/10 mL Oral Susp 10 mL 1 gm = 10 mL, Oral, QIDACHS, Refills(s) 0 Start Date: 04/02/25 Status: Ordered Repeat number: 1Start: 89-82-5890renu 1 g by mouth four times dailyCarafate 1 g/10 mL Susp-Oral 1 gram = 10 mL, Oral, QID, # 280 mL, Refills(s) 0, Pharmacy: [facility]/pharmacy #[id number], 170.2, cm, 02/16/25 18:59:00 EDT, Height/Length Dosing, 85.2, kg, 02/16/25 18:59:00 EDT, Weight Dosing Start Date: 02/16/25 Status: Ordered Quantity: 280.0 Unit: mL Repeat number: 1Start: 02-15-2023 End: 26-78-7383yaja 1 tablet by mouth every six hoursSucralfate (Carafate) 1 gram tablet Discontinued 1 GM PO Q6H 56 14 0 February 15, 2023 12:00am 2023 9:31amStart: 02-27-2019 End: 80-19-5274whqp 1 tablet by mouth at bedtimeSucralfate (Carafate) 1 gram tablet Discontinued 1 GM PO before meals and at bedtime 112 28 0 February 27, 2019 12:00am June 21, 2019 1:42pmStart: 04-05-2018 End: 75-99-8201mbuy 1 tablet by mouth every six hoursSucralfate (Carafate) 1 gram Tablet Discontinued 1 GM PO Q6H April 05, 2018 12:00am October 8:47pmSymbicort 160/4.5 inhalation aerosol with adapter (11 sources)Start: 94-49-0851jfvv 2 puff(s) by inhalation twice dailySymbicort 160/4.5 inhalation aerosol with adapter 2 puff(s), Inhalation, BID, Asthma Start Date: 01/14/20 Status: Orderedvenlafaxine (8 sources)Serotonin and Norepinephrine Reuptake InhibitorVenlafaxine HCl ER Activevitamin b12 1 mg oral tablet (5 sources)Vitamin M74Ophrv: 88-00-1972onae 1 tablet by mouth once daily cyanocobalamin 1000 mcg Tab 1,000 mcg = 1 tab(s), Oral, Daily, # 30 tab(s), Refills(s) 0, Pharmacy:[facility]/pharmacy #[id number], 170.2, cm, 10/19/24 17:25:00 EST, Height/Length Dosing, 90.5, kg, 10/19/24 17:25:00 EST, Weight Dosing Start Date: 10/20/24 Status: Ordered Quantity: 30.0 Unit: tab(s) Repeat number: 1Zofran ODT 4 mg Tab-Dis (11 sources)Start: 65-99-8296ekyo 1 tablet by mouth every six hours as needed for nauseaZofran ODT 4 mg Tab-Dis 4 mg = 1 tab(s), Oral, q6hr, PRN Nausea/Vomiting, # 12 tab(s), Refills(s) 0, Pharmacy: [facility]/pharmacy #[id number], 170, cm, 09/20/20 16:03:00 EST, Height/Length Dosing, 87.5, kg, 09/20/20 16:03:00 EST, Weight Dosing Start Date: 09/20/20 Status: Ordered Completed/Discontinued Medications MedicationDrug Class(es)DatesSig (Normalized)Sig (Original)acetaminophen 325 mg / HYDROcodone bitartrate 5 mg oral tablet (18 sources)Opioid AgonistStart: 06-21-2019 End: 02-07-9171bmyj 1 tablet by mouth every six hours as needed for pain Hydrocodone-Acetaminophen ([place]) 5-325 mg Tablet Discontinued 1 TAB PO Q6H as needed for Pain June 21, 2019 12:00am February 15, 2023 9:46amStart: 11-12-2018 End: 20-54-4190qypn 1 tablet by mouth every four to six hours as needed for pain Hydrocodone-Acetaminophen ([place]) 5-325 mg tablet Discontinued 1 TAB PO EVERY 4- 6 HOURS as needed for pain 10 3 0 November 12, 2018 January 30, 2019 9:43am Paronychia Cellulitis of unspecified [id number] 200 actuat albuterol 0.09 mg/actuat metered dose inhaler (8 sources)beta2-Adrenergic AgonistStart: 10-07-2018 End: 82-11-2311Pxbmzlacl Sulfate 90 mcg/actuation HFA aerosol inhaler Discontinued 2 INH INHALATION EVERY 4-6 HOURS as needed for shortness of breath or wheezing 18 0 October 07, 2018 1:00am November 12, 2018 4:42pm administer with spacerStart: 10-07-2018 End: 20-01-1428Afwrpqdoa Sulfate Discontinued 2 INH INHALATION EVERY 4-6 HOURS October 07, 2018 1:00am November 12, 2018 4:42pm administer with spacer Start: 10-07-2018 End: 38-18-8868Ueircbzwg Sulfate Discontinued 2 INH INHALATION EVERY 4-6 HOURS October 07, 2018 12:00am 2018 3:42pm administer with spacer Albuterol Sulfate 90 mcg/actuation HFA aerosol inhaler (1 source)Start: 10-07-2018 End: 50-90-8508Cobczzkcq Sulfate 90 mcg/actuation HFA aerosol inhaler Discontinued 2 INH INHALATION EVERY 4-6 HOURS as needed for shortness of breath or wheezing October 07, 2018 1:00am November 12, 2018 4:42pmadminister with [id number] actuat budesonide 0.16 mg/actuat / formoterol fumarate 0.0045 mg/actuat metered dose inhaler (9 sources)Corticosteroid, beta2-Adrenergic AgonistStart: 11-12-2018 End: 57-13-9092slor 1 puff(s) by inhalation twice dailyBudesonide-Formoterol (Symbicort) 160-4.5 mcg/actuation Hfa Aerosol Inhaler Discontinued 2 PUFF INHA LATION Twice daily November 12, 2018 1:00am February 25, 2019 6:46pmciprofloxacin 500 mg oral tablet (12 sources)Quinolone AntimicrobialStart: 67-79-3361iqmnxgcdcvhtu HCl (CIPRO) 500 mg tabletdexlansoprazole 60 mg delayed release oral capsule (9 sources)Proton Pump InhibitorStart: 02-25-2019 End: 47-83-1044tiur 1 capsule by mouth once dailyDexlansoprazole 60 mg capsule,biphase delayed releas Discontinued 60 MG PO Daily February 25, 2019 12: 00am June 21, 2019 1:42pm1 ml diphenhydrAMINE hydrochloride 50 mg/ml cartridge (1 source)Histamine-1 Receptor AntagonistStart: 08-28-2024 End: 28-47-417643 mg, IntraVENous, ONCE, 1 dose, On Tue08/28/24 at 1145, IV Push at rate not to exceed 25 mg/min.docusate sodium 100 mg oral capsule (3 sources)Start: 08-29-2024 End: 98-17-2625kalu 1 capsule by mouth once daily as needed for constipation docusate sodium (COLACE, DULCOLAX) 100 MG CAPS Take 100 mg by mouth daily as needed for Constipation (as needed for constipation) 30 capsule 1 08/30/2024 08/30/2024 Discontinueddoxycycline hyclate 100 mg oral tablet (9 sources)Tetracycline-class DrugStart: 11-12-2018 End: 87-41-8769kfiz 1 tablet by mouth twice dailyDoxycycline Hyclate 100 mg tablet Discontinued 100 MG PO Twice daily 20 10 0 November 12, 2018 1:00am January 30, 2019 9:43am0.4 ml enoxaparin sodium 100 mg/ml prefilled syringe (1 source)Low Molecular Weight HeparinStart: 37-63-8534lebjgt 40 mg by subcutaneous injection once daily40 mg, SubCUTAneous, DAILY, First dose on Tue08/28/24 at 1545, Until Discontinued, Indication of Use: Prophylaxis-DVT/PE, Administer by deep subCUTAneous injection with pt lying down. Alternate injec tion sites on abdominal wall. Do not rub site after injection. Check with provider prior to any invasive procedure.ergocalciferol 1.25 mg oral capsule (1 source)Provitamin D2 CompoundStart: 10-20-2024 End: 57-78-0739fjdywvitrdhzyu 50,000 intl units Cap 50,000 International_Unit = 1 cap(s), Oral, q7day, X 7 week(s), # 7 cap(s), Refills(s) 0, Pharmacy: [facility]/pharmacy #[id number], 170.2, cm, 10/19/24 17:25:00 EST, Height/Length Dosing, 90.5, kg, 10/19/24 17:25:00 EST, Weight Dosing Start Date: 10/20/24 Stop Date: 12/08/24 Status: Mfwxsjl204 ml glucose 50 mg/ml / sodium chloride 9 mg/ml injection (1 source)Start: 08-28-2024 End: 21-39-0896ZcvtnOLVkos, at 50 mL/hr, CONTINUOUS, Starting on Tue08/28/24 at 2245hydroCHLOROthiazide 25 mg / triamterene 37.5 mg oral capsule (17 sources)Potassium-sparing Diuretic, Thiazide DiureticStart: 01-30-2019 End: 18-96-2801fnxq 1 tablet by mouth once dailyTriamterene-Hydrochlorothiazid 37.5-25 mg capsule Discontinued 1 TAB PO Daily January 30, 2019 12:00am February 15, 2023 9:47amtake 1 tablet by mouth every twenty-four hoursTriamterene-HCTZ 37.5- 25 MG 1 tablet in the morning Orally Once a day for 30 day(s) Activeibuprofen 800 mg oral tablet (9 sources)Nonsteroidal Anti-inflammatory DrugStart: 02-09-2019 End: 66-65-2858cwyg 1 tablet by mouth three times daily as needed for pain Ibuprofen 800 mg Tablet Discontinued 800 MG PO Three times daily as needed for Pain 20 0 February 09, 2019 12:00am February 27, 2019 3:49pmlosartan potassium 100 mg oral tablet (9 sources)Angiotensin 2 Receptor BlockerStart: 11-12-2018 End: 51-28-7480pblq 1 tablet by mouth once dailyLosartan 100 mg Tablet Discontinued 100 MG PO Daily November 12, 2018 1:00am February 15, 2023 9:46am meclizine hydrochloride 25 mg oral tablet (9 sources)AntiemeticStart: 10-07-2018 End: 15-84-1513ruhe 1 tablet by mouth three times daily as neededMeclizine 25 mg Tablet Discontinued 25 MG PO Three times daily as needed for Vertigo 20 0 October 07, 2018 1:00am November 12, 2018 4:42pmmeloxicam 15 mg oral tablet (9 sources)Nonsteroidal Anti-inflammatory DrugStart: 01-30-2019 End: 39-47-5092ysyc 1 tablet by mouth once dailyMeloxicam 15 mg tablet Discontinued 15 MG PO Daily January 30, 2019 12:00am February 25, 2019 6:46pm metoclopramide 5 mg oral tablet (20 sources)Dopamine-2 Receptor AntagonistStart: 99-07-7950aizywjjctcqspc 5 mg Tab 120 EA, 0 Refill(s), TAKE 1 TABLET BY MOUTH BEFORE MEALS AND AT BEDTIME, Ref ills(s) 0 Start Date: 03/25/25 Status: Ordered Repeat number: 1Start: 08-28-2024 End: 11-47-534348 mg, IntraVENous, ONCE, 1 dose, On Tue08/28/24 at 1145, IV Push: Max 10 mg over 1-2 minutes.Start: 04-13-2018 End: 03-01-3644rtgh 1 tablet by mouth every six hours as needed for pain Metoclopramide Hcl (Reglan) 10 mg Tablet Discontinued 10 MG PO Q6H as needed for Abdominal Pain March 23, 2023 12:00am April 26, 2024 8:28amStart: 61-54-8107ukcp 1 tablet by mouth three times dailyReglan 10 mg Tab 10 mg = 1 tab(s), Oral, TID, # 120 tab(s), Refills(s) 0, Pharmacy: [facility]/pharmacy #[id number], 170, cm, 04/13/21 15:38:00 EDT, Height/Length Dosing, 84.4, kg, 04/13/21 15:38:00 EDT, Weight Dosing Start Date: 04/13/21 Status: OrderedStart: 04-13-2018 take 1 tablet by mouth four times dailyReglan 10 mg Tab 10 mg = 1 tab(s), Oral, QID, # 120 tab(s), Refills(s) 0, Pharmacy: [facility]/pharmacy #[id number], 170, cm, 07/22/22 14:33:00 EST, Height/Length Dosing, 86.6, kg, 07/22/22 14:33:00 EST, Weight Do sing Start Date: 07/22/22 Status: OrderedStart: 60-54-2859Iqlroe 10 MG 1 tablet daily as needed Orally once a day for 30 days Apr, ActivemetroNIDAZOLE 500 mg oral tablet (12 sources)Nitroimidazole AntimicrobialStart: 55-31-5361jwhfcSWQTIIIQ (FLAGYL) 500 mg tabletnaproxen 500 mg oral tablet (20 sources)Nonsteroidal Anti-inflammatory DrugStart: 02-19-2023 End: 01-19-8475wkeh 1 tablet by mouth twice dailyNaproxen 500 mg tablet Discontinued 500 MG PO Twice daily March 23, 2023 12:00am June 25, 2025 2:24pmStart: 06-21-2019 End: 18-62-4150spew 1 capsule by mouth twice daily as needed for painNaproxen Sodium (Aleve) 220 mg Capsule Discontinued 220 MG PO Twice daily as needed for Pain June 21, 2019 12:00am February 15, 2023 9:46amomeprazole 40 mg delayed release oral capsule (20 sources)Proton Pump InhibitorStart: 02-15-2023 End: 36-00-8286hoji 1 capsule by mouth once dailyOmeprazole 40 mg Capsule,Delayed Release(Dr/Ec) Discontinued 40 MG PO Daily February 15, 2023 12:00amJuly 2022 5:11pmStart: 01-28-2022 End: 50-97-5686ptik 1 capsule by mouth once dailyomeprazole 40 mg Cap-DR 40 mg = 1 cap(s), Oral, Daily, X 90 day(s), # 90 cap(s), Refills(s) 1, Pharmacy: [facility]/pharmacy #[id number], 170, cm, 04/14/22 14:53:00 EDT, Height/Length Dosing, 87, kg, 04/14/22 14:53:00 EDT, Weight Dosing Start Date: 04/19/22 Stop Date: 10/16/22 Status: OrderedStart: 03-24-2018 End: 00-59-9223ylkl 1 tablet by mouth once dailyOmeprazole 20 mg Tablet,Delayed Release (Dr/Ec) Discontinued 20 MG PO Daily March 24, 2018 12:00amAugu2017 11:33amComment on above:Take 40 mg by mouth once daily.OXcarbazepine 300 mg oral tablet (20 sources)Anti-epileptic AgentStart: 03-23-2023 End: 78-86-5946xzea 1 tablet by mouth once daily at bedtimeOxcarbazepine 300 mg Tablet Discontinued 300 MG PO Daily at bedtime March 23, 2023 12:00am April 062023 8:29amStart: 02-15-2023 End: 87-17-4250hrzb 1 tablet by mouth once daily in the morning, then take 2 tablets by mouth in the eveningOxcarbazepine 150 mg Tablet Discontinued 150 MG PO Every morning February 15, 2023 12:00am April 26, 2024 8:29am take 1 tablet po in am and 2 tablet po in the eveningtake 1 tablet by mouth twice daily OXcarbazepine (TRILEPTAL) 150 mg tablet Take 150 mg by mouth twice daily. 0 ActiveComment on above:Take 150 mg by mouth twice daily.pantoprazole (PROTONIX) 40 mg in sodium chloride (PF) 0.9 % 10 mL injection (1 source)Start: 08-29-2024 End: mg, IntraVENous, DAILY, First dose on Tue08/29/24 at 0900, Reconstitute with 10 mL 0.9 % sodiumchloride and administer over at least 2 minutes.100 ml potassium chloride 0.1 meq/ml injection (2 sources)Start: 08-29-2024 End: mEq, IntraVENous, EVERY HOUR, 2 doses, First dose on Tue08/29/24 at 0715, Last dose on Tue08/29/24 at 0815, at 100 mL/hr, Potassium chloride doses are limited to a maximum of six consecutive doses before reassessment of laboratory values is needed.Start: 71-23-2399ykgnodqzz chloride (KLOR-CON M) extended release tablet 40 mEqpotassium chloride 40 mEq in dextrose 5 % 1,000 mL infusion (1 source)Start: 08-29-2024 End: 86-14-1918SpqklYGEgms, at 50 mL/hr, CONTINUOUS, Starting on Tue08/29/24 at 1245predniSONE 20 mg oral tablet (9 sources)Start: 10-07-2018 End: 36-50-8027xxub 2 tablets by mouth once daily in the morningPrednisone 20 mg tablet Discontinued 40 MG PO Every morning 10 5 0 October 07, 2018 1:00am November 12, 2018 4:42pm administer with food or milkStart: 10-07-2018 End: 57-86-9713ctfp 40 mg by mouth once daily in the morningPrednisone Discontinued 40 MG PO Every morning 10 5 October 07, 2018 1:00am November 12, 2018 4:42pm administer with food or milkpromethazine hydrochloride 25 mg oral tablet (20 sources)PhenothiazineStart: 03-24-2018 End: 87-77-8474ispv 1 tablet by mouth every four to six hours as needed for nausea and vomitingPromethazine 25 mg tablet Discontinued 25 MG PO EVERY 4-6 HOURS as needed for nausea and vomiting 10 0 October 26, 2022 1:00am February 15, 2023 9:46ampyridostigmine bromide 60 mg oral tablet (6 sources)Start: 03-31-2023 End: 46-41-4070tene 1 tablet by mouth twice dailyPyridostigmine [place] 60 mg Tablet Discontinued 60 MG PO Twice daily 60 0 March 31, 2023 12:00am May 01, 2024 9:31am5 ml sodium chloride 9 mg/ml injection (8 sources)Start: -40 mL, IntraVENous, EVERY 12 HOURS SCHEDULED (2 times per day), First dose on Tue08/28/24 at 2100, Until Discontinued, For Line Patency: Peripheral IV = 5 mL; Midline or Central Line = 10 mL/lumen. If following IV push medication, administer flush at same rate as the IV push. Flush volume is determined by type of infusion therapy being given. For non- viscous solutions use: Peripheral IV = 5 mLMidline or Central Line = 10 mL/lumen For viscous solutions (i.e. blood components, parenteral nutrition, contrast media, or after obtaining blood sample) use: Peripheral IV = 10 mL Midline or Central Line = 20 mL/lumenStart: 08-28-2024 End: 95-77-8304XyjjwUPFcoc, at 75 mL/hr, CONTINUOUS, Starting on Tue08/28/24 at 1545Start: -40 mL, IntraVENous, PRN, Starting on Tue08/28/24 at [...] mL Midline or Central Line = 20 mL/lumenStart: 03-42-3946MubghKKLfqk, at 125 mL/hr, CONTINUOUS, Starting on Tue08/17/24 at 1145, Pre-op (day of surgery)Start: 56-19-5920YmhruTHAvpo, at 5-250 mL/hr, PRN, if patient receiving piggyback infusions and maintenance fluids are not ordered, Starting on Tue08/17/24 at 1120, For piggyback infusion, administer at same rate aspiggyback for a total of 25 mL. Enter 25 mL into dose field and piggyback rate into rate field of order. If piggyback is infusing at a rate less than 100 mL/hr, enter 25 mL into dose field and 100 mL/hr into rate field of order., Pre-op (day of surgery)Start: -40 mL, IntraVENous, EVERY 12 HOURS SCHEDULED (2 [...] non-viscous solutions use: Peripheral IV = 5 mLMidline or Central Line = 10 mL/lumen For viscous solutions (i.e. blood components, parenteral nutrition, contrast media, or after obtaining blood sample) use: Peripheral IV = 10 mL Midline or Central Line = 20 mL/lumen, Pre-op (day of surgery)Start: -40 mL, IntraVENous, PRN, Starting on Tue08/17/24 at [...] Line = 20 mL/lumen, Pre-op (day of surgery)traMADol hydrochloride 50 mg oral tablet (9 sources)Opioid AgonistStart: 02-27-2019 End: 62-57-0360ffxo 1 tablet by mouth every four to six hours as needed for pain Tramadol 50 mg tablet Discontinued 50 MG PO EVERY 4-6 HOURS as needed for pain 20 7 0 February 27, 2019 12:00am June 21, 2019 1:45pm Epigastric painVitamin D (9 sources)Start: 04-26-2024 End: 34-29-0557ambrmsd d Discontinued PO April 26, 2024 12:00am May 01, 2024 9:30amStart: 25-62-5551lpeczqw d Active PO April 26, 2024 12:00amStart: 92-09-1684Pspsase D International_Unit, Oral, qWeek, Refills(s) 0 Start Date: 02/16/24 Status: Ordered Problems Active Problems Problem ClassificationProblemDateDocumented DateEpisodic/ChronicAbdominal hernia (20 sources)Hiatal hernia; Translations: [Diaphragmatic hernia without obstruction or gangrene]Onset: 882779-11-7325ZydgpxamEclzffb on above: Problem List clean-up per request of Phys. EHR CmteAbdominal pain (20 sources)Epigastric pain; Translations: [Epigastric pain]Onset: 01-28-2022 92-32-2938SgbpowbmFttyauv on above:Problem List clean-up per request of Phys. EHR CmteAdjustment disorders (1 source)Adjustment disorder with mixed anxiety and depressed mood; Translations: [Adjustment disorder with mixed anxiety and depressed mood]Onset: 84-05-6833BwqztisZsxizsmshcpzgd/social admission (3 sources)Patient encounter status; Translations: [Dietary counseling and surveillance]80-25-3129HzgjwvbxEmmwpa (8 sources)Reactive airway disease; Translations: [Unspecified asthma, uncomplicated]ChronicBiliary tract disease (16 sources)Aklffvnsb27-75-7744MznjamfuEesqidut of urinary tract (16 sources)Kidney ugeve78-85-0471QofpaomcLdgasghnvyw and hemorrhagic disorders (2 sources)Von Willebrand's disease; Translations: [VON WILLEBRAND DISEASE] Onset: 50-38-2464MpqvvgkYnuotkuryn associated with dizziness or vertigo (4 sources)Dizziness; Translations: [Dizziness and giddiness]99-28-8234[place] Deficiency and other anemia (1 source)Anemia; Translations: [Anemia, unspecified]Onset: 33-61-8590Gmwrkekp Disorders of lipid metabolism (3 sources)Hyperlipidemia; Translations: [Hyperlipidemia, unspecified]Onset: 83-91-0819TkexlydZvuezqrr; convulsions (20 sources)Seizure; Translations: [Unspecified convulsions]Onset: 10-19-2024 17-37-4731KrjpnxkzCgwdzqsxfa disorders (20 sources)Pearce's esophagus; Translations: [Pearce's esophagus without dysplasia]Onset: 61-12-0779NclhcmiGwsnvyazy hypertension (20 sources)Hypertensive disorder; Translations: [Essential (primary) hypertension]Onset: 634802-96-6848YxbmzwlTyvvlmtvn and duodenitis (1 source)Gastritis; Translations: [Gastritis, unspecified, without bleeding] Onset: 03-07-5882UemmqqhpGeaaachxvqfma symptoms and ill-defined conditions (6 sources)Zybogtbeymaf35-54-6796BrrisriJuzkfhaorpzmy symptoms and ill-defined conditions (20 sources)History of urinary tract infection; Translations: [Proteinuria] Onset: 851926-00-2376MfjshsnoRxnmkrme; including migraine (20 sources)Migraine; Translations: [Migraine, unspecified, not intractable, without status migrainosus]Onset: 289916-42-4284UxmjmciBimhlqoy; including migraine (2 sources)Headache; Translations: [Headache]83-39-5490CjmnlvqcLhjss valve disorders (17 sources)Mitral valve prolapse; Translations: [Nonrheumatic mitral (valve) prolapse]Onset: 394501-42-4635EplnafvXklfjiwqkj obstruction without hernia (17 sources)Partial intestinal obstruction, unspecified as to cause; Translations: [Small bowel obstruction]Onset: 65-29-1954YckjwsedAzddzhifiztby mental health disorders (1 source)Psychological and behavioral factors associated with disorders or diseases classified elsewhere; Translations: [Psychological factors affecting medical condition]Onset: 44-41-7081JigvycrOcfh disorders (3 sources)Major depressive disorder; Translations: [Major depressive disorder, single episode, unspecified]Onset: 944745-16-7857PmkzshhHoueqb and vomiting (20 sources)Nausea and vomiting; Translations: [Nausea with vomiting, unspecified]Onset: 21-43-6954VuwlbjgwJxpmdwh on above:Problem List clean-up per request of Phys. EHR CmteNoninfectious gastroenteritis (2 sources)Noninfective gastroenteritis and colitis, unspecified; Translations: [NONINFECTIVE GE AND COLITIS UNS]Onset: 13-02-9756DuykbgmkIhoalgkyzff chest pain (2 sources)Other chest pain; Translations: [Other chest pain]Onset: 12-28-2024 EpisodicNutritional deficiencies (2 sources)Malnutrition (calorie); Translations: [Moderate protein-calorie malnutrition]Onset: 763904-10-8402IyscgobFrzvkrftzwa deficiencies (1 source)Vitamin B deficiency; Translations: [Deficiency of other specified B group vitamins]Onset: 67-41-8290ArdztvleBwyzzltowtrrur (17 sources)Arthritis; Translations: [Osteoarthritis]Onset: ChronicOther aftercare (1 source)Other skilled nursing (current) drug therapy; Translations: [OTH RESIDENTIAL CURRENT DRUG THERAPY]Onset: 79-51-3968OtpqsnukHyuiv aftercare (1 source)Long-term current use of drug therapy; Translations: [Other manager long term care (current) drug therapy]Onset: 26-12-6885BhujjaneCalhv and unspecified benign neoplasm (2 sources)Polyp of colon; Translations: [Polyp of colon]Onset: 06-05-2025 EpisodicOther circulatory disease (3 sources)Feeling of lump in edqwvq44-98-4990ArbjkymdQthrt connective tissue disease (1 source)Facial weakness; Translations: [R29.810]Onset: 22-82-3643EtzcvnhnCwpfg connective tissue disease (1 source)Neurological symptom; Translations: [Unspecified symptoms and signs involving the nervous system]Onset: 96-69-4026AvpmdmwsZcvwo diseases of bladder and urethra (18 sources)Traumatic urethral stricture; 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 EHR CmteOther disorders of stomach and duodenum (1 source)Gastroparesis; Translations: [Gastroparesis]Onset: 01-74-9262Ewernknc Other endocrine disorders (4 sources)Hypoglycemia; Translations: [Hypoglycemia, unspecified]06-20-2024 ChronicOther gastrointestinal disorders (16 sources)Adlbggpt59-53-2929EcxvvhfvEwlxn gastrointestinal disorders (17 sources)Heartburn; Translations: [Heartburn]Onset: EpisodicOther gastrointestinal disorders (1 source)Digestive system finding; Translations: [Other specified symptoms and signs involving the digestivesystem and abdomen]Onset: 81-35-5279OinhzwttQxvmy gastrointestinal disorders (12 sources)Irregular bowel -47-5661GnujiaocGicrf gastrointestinal disorders (17 sources)Constipation; Translations: [Constipation, unspecified]09-20-2022 EpisodicOther gastrointestinal disorders (8 sources)Esophageal dysphagia; Translations: [Dysphagia, unspecified]Episodic Other gastrointestinal disorders (5 sources)Constipation, unspecified; Translations: [CONSTIPATION UNSPECIFIED] Onset: 90-77-9863DseskwvqIguch gastrointestinal disorders (9 sources)Dark -51-2859SgcbmgdtWoifc gastrointestinal disorders (9 sources)Hard -99-0670GxjowodzZeqey gastrointestinal disorders (20 sources)Dysphagia; Translations: [Dysphagia, unspecified]Onset: 08-15-2024 71-80-0733MgoxwftjBitmbql on above:Problem List clean-up per request of Phys. EHR CmteOther gastrointestinal disorders (6 sources)Disorder of abdomen; Translations: [Peritoneal adhesions (postprocedural) (postinfection)]70-49-1577KxylnrzxHwliu gastrointestinal disorders (3 sources)Peritoneal adhesions (postprocedural) (postinfection); Translations: [Peritoneal adhesions (postoperative) (postinfection)]62-12-5258IkdduhlbGbmqv gastrointestinal disorders (5 sources)Altered bowel function; Translations: [Change in bowel habit]Onset: 86-88-4796XtpszcqtFrfzd injuries and conditions due to external causes (16 sources)Fwxjtp03-24-0750UngjkgoiUadzw injuries and conditions due to external causes (1 source)Foreign body in digestive tract; Translations: [Foreign body in stomach, sequela]Onset: 58-00-9850AjtxbtnxDzbtq injuries and conditions due to external causes (15 sources)Foreign body in stomach; Translations: [Foreign body in stomach, initial encounter]Onset: 314528-06-8432TnfkxfbwJtuyq nervous system disorders (1 source)Other chronic pain; Translations: [OTHER CHRONIC PAIN]Onset: 28-36-5344ThfzvfoLomce nervous system disorders (6 sources)H/O: respiratory disease; Translations: [Personal history of other diseases of the nervous system and sense organs]32-62-3219DqoyqrsjLjmwn nutritional; endocrine; and metabolic disorders (20 sources)Body mass index 30+ - obesity; Translations: [Body mass index (BMI) 31.0-31.9, adult]ChronicOther nutritional; endocrine; and metabolic disorders (12 sources)Morbid obesity; Translations: [Morbid (severe) obesity due to excess calories]Onset: 761272-52-9804HmdqzoaKgihc nutritional; endocrine; and metabolic disorders (7 sources)Obesity; Translations: [Obesity, unspecified]Onset: 10-19-2024 09-86-2213RsbxncxDugtbrz on above:Problem List clean-up per request of Phys. EHR CmteOther nutritional; endocrine; and metabolic disorders (17 sources)Body mass index 25-29 - overweight; Translations: [Overweight] 87-61-9198BdhooxskHlmct screening for suspected conditions (not mental disorders or infectious disease) (11 sources)Encounter for screening mammogram for malignant neoplasm of breast; Translations: [Raised cardiac enzyme or marker]Onset: 51-87-8561EmljnfpfSgcvrmx on above:Problem List clean-up per request of Phys. EHR CmteResidual codes; unclassified (2 sources)Obstructive sleep apnea (adult) (pediatric); Translations: [Obstructive sleep apnea (adult) (pediatric)]Onset: 31-48-4940EywplsoNsgetdld codes; unclassified (1 source)Family history of malignant neoplasm of breast; Translations: [FAMILY HX MALIG NEOPLASM OF BREAST]Onset: 07-95-2249EciuvumrDwauwtmm codes; unclassified (1 source)Family history of malignant neoplasm of digestive organs; Translations: [FAM HX MALIG NEOPLASM DIGESTIV ORGN]Onset: 93-92-2808Mrezciku Residual codes; unclassified (1 source)Family history of malignant neoplasm of ovary; Translations: [FAM HX MALIGNANT NEOPLASM OVARY]Onset: 85-67-2322TjutultuOamvqjnj codes; unclassified (1 source)Family history of malignant neoplasm, unspecified; Translations: [FAM HX MALIGNANT NEOPLASM UNS]Onset: 68-96-1269HtuzzekcAmnbteyk codes; unclassified (1 source)Acquired absence of both cervix and uterus; Translations: [ACQUIRED ABSENCE BOTH CERVIX AND UTERUS]Onset: 43-67-7768QglcujghRggydmrv codes; unclassified (1 source)Acquired absence of other specified parts of digestive tract; Translations: [ACQ ABSENCE OTH PART DIGESTV TRACT]Onset: 70-62-3211Xjnxouch Residual codes; unclassified (1 source)History of fundoplication; Translations: [Other specified postprocedural states]37-38-9295FrfdopryCwlbhsnt codes; unclassified (1 source)Pain, unspecified; Translations: [Pain, unspecified]Onset: 12-01-2023 EpisodicResidual codes; unclassified (6 sources)History of hernia repair; Translations: [Other specified postprocedural states]83-55-6421KpqzrqmiHpxyarq on above:Problem List clean-up per request of Phys. EHR CmteResidual codes; unclassified (5 sources)Early satiety; Translations: [Early satiety]Onset: 81-04-0237Ourlcjyz Spondylosis; intervertebral disc disorders; other back problems (9 sources)Gnvphgvi08-40-7161JvpmbvduSvrgzme and strains (18 sources)Low back strain; Translations: [Strain of muscle, fascia and tendon of lower back, initial encounter]Onset: 514017-27-6503XygzkhiwPjsqctf on above:Problem List clean-up per request of Phys. EHR CmteUnclassified (1 source)VON WILLEBRAND DISEASE UNSPECIFIED; Translations: [VON WILLEBRAND DISEASE UNSPECIFIED]Onset: 91-30-7442Uyvkbctwluqg (1 source)CONTACT W/AND (SUSP) EXPOS COVID-19; Translations: [CONTACT W/AND (SUSP) EXPOS COVID-19]Onset: 91-57-1414Bfmrmrjzlisr (2 sources)COUGH, UNSPECIFIED; Translations: [COUGH, UNSPECIFIED]Onset: 66-98-9509Mztvtvxvnhyw (1 source)LOW BACK PAIN, UNSPECIFIED; Translations: [LOW BACK PAIN, UNSPECIFIED] Onset: 14-15-5318Flraekcpeeqo (8 sources)Asymptomatic microscopic yawycgefo47-99-4916Egqwnfr tract infections (20 sources)Urinary tract infectious disease; Translations: [Urinary tract infection, site not specified]Onset: 231126-84-6053EbzjlhfxGoqocto on above:Problem List clean-up per request of Phys. EHR Cmte Past or Other Problems Problem ClassificationProblemDateDocumented DateEpisodic/ChronicBacterial infection; unspecified site (1 source)Unspecified Escherichia coli [E. coli] as the cause of diseases classified elsewhere; Translations:[UNS E COLI CAUSE DX CLASS ELSEWHERE]Onset: 98-01-2791UltnaoseHxflp (4 sources)Burn of first degree of left hand, unspecified site, initial encounter; Translations: [BURN FIRST DEG LT HAND UNS INIT ENC]Onset: 08-20-2022 EpisodicCardiac dysrhythmias (6 sources)Palpitations; Translations: [Tachycardia, unspecified]Onset: 14-92-9874AfdfufumS Codes: Fire/burn (1 source)Contact with other hot fluids, initial encounter; Translations: [CONTACT W/OTHER HOT FLUIDS INITIAL]Onset: 90-15-9782CnaucnokFtoac and electrolyte disorders (9 sources)Dehydration; Translations: [Hypokalemia]Onset: 998035-98-8737 EpisodicOther connective tissue disease (4 sources)Pain in right lower leg; Translations: [PAIN IN RIGHT LOWER LEG] Onset: 54-54-5299SyqzlbkiJgrme gastrointestinal disorders (4 sources)Diarrhea, unspecified; Translations: [DIARRHEA UNSPECIFIED]Onset: 18-45-1070YrhpwhwlZravj gastrointestinal disorders (6 sources)Dysphagia, unspecified; Translations: [Dysphagia, unspecified]Onset: 37-61-7807BzzmwrrxMnjgm gastrointestinal disorders (2 sources)Personal history of other diseases of the digestive system; Translations: [Personal history of other diseases of the digestive system]Onset: 38-19-2372UvdjupmnDmyfa gastrointestinal disorders (1 source)Other dysphagia; Translations: [Other dysphagia]Onset: 08-15-2024 EpisodicOther lower respiratory disease (2 sources)Shortness of breath; Translations: [Shortness of Breath]Onset: 29-63-6845UxvqbkgqLdytm nutritional; endocrine; and metabolic disorders (2 sources)Overweight; Translations: [Overweight]Onset: 95-78-4286PvjubppkHmlxw upper respiratory infections (4 sources)Acute pharyngitis, unspecified; Translations: [ACUTE PHARYNGITIS UNSPECIFIED]Onset: 06-18-6072EucmwkmgNlcipxrz codes; unclassified (4 sources)Other specified postprocedural states; Translations: [OTH SPECIFIED POSTPROCEDURAL STATES]Onset: 51-34-7638LvvhpgylVozsuncsr and history of mental health and substance abuse codes (3 sources)Personal history of nicotine dependence; Translations: [PERSONAL HISTORY OF NICOTINE DEPEND]Onset: 24-57-6894YzrqulqvHegx and subcutaneous tissue infections (1 source)Cutaneous abscess of right lower limb; Translations: [CUTANEOUS ABSCESS RIGHT LOWER LIMB]Onset: 82-71-8806DlvijimpJvopglixinte (1 source)COUGH, UNSPECIFIED; Translations: [COUGH, UNSPECIFIED]Onset: 11-00-3488Qvezglokaxmr (2 sources)Foreign body sensation; Translations: [Foreign body sensation, throat]Onset: 34-28-5908Vzcaqmrk veins of lower extremity (1 source)Varicose veins of bilateral lower extremities with pain; Translations: [VARICOSE VNS MACARIO LOW EXTREMW/PAIN]Onset: 49-76-2292GdreqwzcIshrf infection (1 source)Viral infection, unspecified; Translations: [VIRAL INFECTION UNSPECIFIED]Onset: 08-09-5233Fayliwtr Results Test NameValueInterpretationReference RangeFacilityMain OR Intraoperative Record on [id number] OR Intraoperative RecordMain OR Intraoperative Record IntraOp Document Type FTURO Summary Primary Physician: Flavio JUAREZ MD Finalized Date/Time: 06/11/25 09:54:31 Pt. Name: CONSTANTINO CARDOSO/Sex: 1970 Female Med Rec #: [id number] Physician: Flavio JUAREZ MD Financial #: [id number] Pt. Type: O Room/Bed: / Admit/Disch: 06/11/25 08:31:50 - Institution: Case Times FTURO Entry 1 Patient Times In Room 06/11/25 09:41:00 Out Room 06/11/25 09:50:00 Procedure Times Start 06/11/25 09:43:00 Stop 06/11/25 09:47:00 Anesthesia Times Last Modified By: Richard Randle 06/11/25 09:51:00 Case Attendance FTURO Entry 1 Entry 2 Entry 3 Case Attendee SUYAPA BAKER, Richard Delgado Kendall R Role Performed Surgeon - Primary Manager Financial Services - Primary Scrub - Primary Time In [...] DURING DILATION. DILATION STOPPED AND CYSTO PERFORMED. Ervin RANDLE RN. General Case Data FTURO Pre-Care [...] Prep Agents Betadine Scrub Skin. Condition Intact, [place], Warm, & Dry Additional None Specimens Collected [...] Document Signatures Signed By: Richard Randle 06/11/25 09:54NoTriHealthMain OR Preoperative Recordon [id number] OR Preoperative RecordMain OR Preoperative Record Holding Area Document Type FTURO Summary Primary Physician: Flavio JUAREZ MD Finalized Date/Time: 06/11/25 09:23:13 Pt. Name: CONSTANTINO CARDOSO/Sex: 1970 Female Med Rec #: [id number] Physician: Flavio JUAREZ MD Financial #: [id number] Pt. Type: O Room/Bed: / Admit/Disch: 06/11/25 [...] or her perioperative plan of care The patient'sright to privacy is maintained Surgery Checklist FTURO [...] Document Signatures Signed By: Pati Bryson 06/11/25 09:23[facility] CenterOperative Reporton [id number] ReportOperative Report Patient: CONSTANTINO CARDOSO Age: 55 years [...] urine. The Urethra was dilated to: 26 Chilean w/ sounds, She did not tolerate the dilation well. We were only able to dilate her up to 26 Chilean. The urethra bled. Devices Implanted: None. Removal: Cystoscope is removed, The patient tolerated it well. Postoperative Information Discharge: Patient is discharged home with antibiotic coverage, Follow up arranged. She will resume estradiol cream around her urethra several nights a week..Normal [facility] City HospitalComment on above:Result Comment: Electronically Signed By: SUYAPA BAKER, Flavio Hairston\.br\Date and Time Signed: 06/11/25 09:55 EDT Ambulatory Visit Summaryon 30-63-1435Yxkjwnzzrj Visit SummaryAmbulatory Visit Summary CONSTANTINO CARDOSO :1970 Visit Date:06/05/2025 [...] mL Oral Susp 10 mL) Procedures Performed Esophagogastroduodenoscopy (01/11/2022), Esophagogastroduodenoscopy (05/13/2021), Esophagogastroduodenoscopy (09/30/2020), Colonoscopy (03/13/2020), Esophagogastroduodenoscopy (01/30/2020), Colonoscopy (05/17/2019), Esophagogastroduodenoscopy (05/17/2019), Hernia surgical mesh (03/02/2019), Cholecystectomy, Hernia repair, Hysterectomy. Discharge Vitals Heart Rate (Peripheral) 65 Blood Pressure 151/102 Height 67 in Height 170 cm Weight 198.195 lb Weight 89.9 kg BMI 31.11 What to do next Scheduled Follow-Up Appointments 2024 10:00 AM EDT With: Where: [facility] Tuesday 9:30 AM EDT With: Where: [facility] Tuesday2025 10:45 AM EST With: Flavio JUAREZ MD Where: [facility] [address] [address]- Medications What How Much When Why Instructions New colestipol (Colestid 1 g Tab) 2 Tablets By Mouth Every day Refills: 3 Pickup at [facility]/pharmacy #[id number] New esomeprazole (Nexium 40 mg Cap-EC) 40 Milligram By Mouth 2 times a day Duration: 90 Days Refills: 3 Pharmacy may substitue PPI covered by insurance company Pickup at [facility]/pharmacy #[id number] New famotidine (famotidine 40 mg Tab) 1 Tablets By Mouth Once a day (at bedtime) Refills: 3 Pickup at [facility]/pharmacy #6177 New peppermint oil (Ibgard 90 mg oral delayed release capsule) 2 Capsules By Mouth 2 times a day Refills: 3 Pickup at [facility]/pharmacy #[id number] Unchanged acarbose (acarbose 25 [...] weeks, then 2 times weekly for maintenance Contactprescribing physician if questions or concerns Unchanged levetiracetam [...] Tab) 1 Tablets By Mouth Contact prescribing physicianif questions or concerns Unchanged psyllium (Metamucil 3.4 g/ 5.2 g oral powder) 3.4 Gram By Mouth 3 times a day as needed for for constipation Lower abdominal pain Dysphagia Globus sensation Pearce esophagus Change in bowel habits Contact prescribing physician if questions or concerns Unchanged sertraline (sertraline 50 mg Tab) 1 Tablets By Mouth Every day Con (more content not included)...[facility] CenterAmbulatory Visit SummaryAmbulatory Visit Summary CONSTANTINO CARDOSO :1970 Visit Date:06/05/2025 Ambulatory Visit Instructions Your Diagnosis Lower abdominal pain Dysphagia Globus sensation Pearce esophagus Change in bowel habits Early satiety Acid reflux Your Care Team Attending Physician - Rambo Purcell MD Primary Care Physician - JUDI YOUSSEF [...] mL Oral Susp 10 mL) Procedures Performed Esophagogastroduodenoscopy (01/11/2022), Esophagogastroduodenoscopy (05/13/2021), Esophagogastroduodenoscopy (09/30/2020), Colonoscopy (03/13/2020), Esophagogastroduodenoscopy (01/30/2020), Colonoscopy (05/17/2019), Esophagogastroduodenoscopy (05/17/2019), Hernia surgical mesh (03/02/2019), Cholecystectomy, Hernia repair, Hysterectomy. Discharge Vitals Heart Rate (Peripheral) 65 Blood Pressure 151/102 Height 67 in Height 170 cm Weight 198.195 lb Weight 89.9 kg BMI 31.11 What to do next Scheduled Follow-Up Appointments 2024 10:00 AM EDT With: Where: [facility] Tuesday 9:30 AM EDT With: Where: [facility] Tuesday2025 10:45 AM EST With: SUYAPA BAKER, Flavio Hairston Where: [facility] [address] [address]- Medications What How Much When Why Instructions New colestipol (Colestid 1 g Tab) 2 Tablets By Mouth Every day Refills: 3 Pickup at [facility]/pharmacy #6177 New esomeprazole (Nexium 40 mg Cap-EC) 40 Milligram By Mouth 2 times a day Duration: 90 Days Refills: 3 Pharmacy may substitue PPI covered by insurance company Pickup at [facility]/pharmacy #6177 New famotidine (famotidine 40 mg Tab) 1 Tablets By Mouth Once a day (at bedtime) Refills: 3 Pickup at [facility]/pharmacy #6177 New peppermint oil (Ibgard 90 mg oral delayed release capsule) 2 Capsules By Mouth 2 times a day Refills: 3 Pickup at [facility]/pharmacy #6177 Unchanged acarbose (acarbose 25 [...] weeks, then 2 times weekly for maintenance Contactprescribing physician if questions or concerns Unchanged levetiracetam [...] Tab) 1 Tablets By Mouth Contact prescribing physicianif questions or concerns Unchanged psyllium (Metamucil 3.4 g/ 5.2 g oral powder) 3.4 Gram By Mouth 3 times a day as needed for for constipation Lower abdominal pain Dysphagia Globus sensation Pearce esophagus Change in bowel habits Contact prescribing physician if questions or concerns Unchanged sertraline (sertraline 50 mg Tab) 1 Tablets By Mouth Every day Con (more content not included)...[facility] CenterGastroenterology Office/Clinic Noteon [id number] Office/Clinic Note Gastroenterology Office/Clinic Note Chief Complaint [...] Esophageal landmarks identified, slightly torturous esophagus. 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 Empiric dilation with Lopez 54 Chilean was done, no resistance, post dilation there [...] had hiatal hernia surgery, Dr Mortensen at [facility] in [place] Has early satiety, some postprandial vomiting EGD [...] C0 M1, Empiric dilation with Lopez 54 Chilean was done, Mild atrophy in the mucosa [...] previously had dilation with Dr Lucero in [place] EGD 03/2025: slightly torturous esophagus, mucosa compatible with Pearce's, Empiric dilation with Lopez 54 Chilean Dilation helped for about a month but [...] hemorrhoids seen on retroflexion, Mild sigmoid diverticulosis, 2polyps removed- 1 was luminal content, the other was TA - Colestid prescribed 6. Early satiety (R68.81: Early satiety) 7. Acid reflux (K21.9: Gastro-esophageal reflux disease without esophagitis) Recently started having more reflux Taking pantoprazole - Switch Pantoprazole to Nexium BID before meals - Continue with Famotidine 8. Colon polyps (K (more content not included)...[facility] CenterComment on above:Result Comment: Electronically Signed By: Carlota Berg MA\.br\Date and Time Signed: 06/05/25 11:17 EDT\.br\Electronically Co- Signed By: Binh BAKER, Rambo Dietrich\.br\Date and Time Co-Signed: 06/05/25 14:21 EDTReminderson 34-47-0255EwovnlkmzOczubqwrz From: Domenica Gandhi I To: [facility] - Reminders/Recalls; Sent: 04/18/2025 14:56:11 EDT Show up: 03/05/2030 14:56:00 EDT Subject: EGD/Colon recall Due Date/Time: 04/02/2030 14:56:00 EDT Reminder/Recall 5 year EGD/Colonoscopy recall - hx colon polyps & Pearce esophagus Dr. Purcell 04/02/25[facility] CenterXR Adult Swallowing Function w/ Videoon [id number] Adult Swallowing Function w/ VideoExam Date/Time: 04/09/2025 09:14 EDT Reason for Exam: [...] Axel Garcia MD Transcribed by: REZA Technologist: REZAOur Lady of Mercy [facility] - AndersonAmbulatory Visit Summaryon 60-74-0177Fcdynlqevf Visit SummaryAmbulatory Visit Summary CONSTANTINO CARDOSO :1970 Visit Date:04/08/2025 [...] mL Oral Susp 10 mL) Procedures Performed Esophagogastroduodenoscopy (01/11/2022), Esophagogastroduodenoscopy (05/13/2021), Esophagogastroduodenoscopy (09/30/2020), Colonoscopy [...] EDT With: Binh BAKER, Rambo Dietrich Where: [facility] [address] [place], [place] [address]e [address] [place] [phone]- Tuesday2025 10:45 AM EST With: Flavio JUAREZ MD Where: [facility] [address] [place] [address]- You Need to Schedule the Following Appointments Follow Up with Flavio JUAREZ MD, URL When: Comments: sched cysto/UD, 6 mos w/ MRI Where: [facility] [address], [place] [phone] Medications What How Much When Why Instructions [...] weeks, then 2 times weekly for maintenance Contactprescribing physician if questions or concerns Unchanged levetiracetam [...] Tab) 1 Tablets By Mouth Contact prescribing physicianif questions or concerns Unchanged psyllium (Metamucil 3.4 [...] mL) 10 Milliliter By (more content not included)...[facility] CenterAmbulatory Visit SummaryAmbulatory Visit Summary CONSTANTINO CARDOSO :1970 Visit Date:04/08/2025 [...] mL Oral Susp 10 mL) Procedures Performed Esophagogastroduodenoscopy (01/11/2022), Esophagogastroduodenoscopy (05/13/2021), Esophagogastroduodenoscopy (09/30/2020), Colonoscopy [...] EDT With: Binh BAKER, Rambo Dietrich Where: [facility] [address] [facility] [address] [place] [phone]- Tuesday2025 10:45 AM EST With: Flavio JUAREZ MD Where: [facility] [address] [place] [address]- You Need to Schedule the Following Appointments Follow Up with SUYAPA BAKER, Flavio Hairston, URL When: Comments: sched cysto/UD, 6 mos w/ MRI Where: [facility] [address], [place] [address] [phone] Medications What How Much When Why Instructions [...] weeks, then 2 times weekly for maintenance Contactprescribing physician if questions or concerns Unchanged levetiracetam [...] Tab) 1 Tablets By Mouth Contact prescribing physicianif questions or concerns Unchanged psyllium (Metamucil 3.4 [...] mL) 10 Milliliter By (more content not included)...[facility] [id number]db From: Radha Moy To: [facility] - Recalls Juarez; Sent: 04/08/2025 12:59:40 EDT Show up: 08/05/2025 12:59:00 EST Subject: Abd MRI Due Date/Time: 09/02/2025 12:59:00 EST Reminder/Recall Patient needs ABD MRI with/wo contrast ATTN: kidneys to be carvajal prior to Oct 2025 appt. [id number] Pathology ReportPolk - [address] [place] [address]- Surgical Pathology Report Collected Date/Time: 04/02/2025 12:53 [...] Esophageal landmarks identified, slightly torturous esophagus. 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 Empiric dilation with Lopez 54 Chilean was done, no resistance, post dilation there [...] Taylor Cummings MD Received Date/Time: 04/02/2025 13:59 EUGENIA Purcell MD, Rambo Purcell MD, Rambo Dietrich Gross Description [...] characteristics were determined by the [facility]. They have not been [...] recognition technology and might contain unintended computerized php engineer errors. Microscopic examination performed unless gross only specified. Quality was accessed and acceptable.NormalTwin City HospitalComment on above:Performed By: #### [id number] #### [facility] [address] [place], [place] [address]Ymkcimn Office/Clinic Noteon [id number] Office/Clinic NoteUrology Office/Clinic Note Chief Complaint new pt for complex renal cyst HPI Staff Pt is a 54 year female new patient referred by Judi JEAN at [facility] for complex renal cyst. Cyst measures 2.2 [...] density lesion along the anterior midpole cortex ofthe right kidney measuring 2.[address] AP [...] pain, not urologically related. Reviewed imaging results. Educatedpt on complex vs simple renal cysts. Advised pt complex renal cysts require monitoring given risk of malignancy. Cyst does not currently appear significantly complex. Has had 4 CT scans since December. Will avoid further radiation exposure at this time. Recommended MRI in 6 mos. -Schedule MRI Abd w/wo con in 6 mos 2. 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 Juarez on 04/08/2025 12:52:31. . Documentation recorded by the scribNathalia melara, accurately reflects the services(s) I performed and [...] Colonoscopy (05/17/2019), Esophagogastroduodenoscopy (05/17/2019), Hernia surgical mesh (/ (more content not included)...[facility] CenterComment on above:Result Comment: Electronically Signed By: Flavio JUAREZ MD\.br\Date and Time Signed: 04/08/25 12:55 EDT\.br\Electronically Co-Signed By: Nathalia Valdivia\.br\Date and Time Co-Signed: 04/08/25 12:52 EDTMain OR Intraoperative Recordon [id number] OR Intraoperative RecordMain OR Intraoperative Record IntraOp Document Type FT Summary Primary Physician: Rambo Purcell MD Finalized Date/Time: 04/03/25 09:36:35 Pt. Name: CONSTANTINO CARDOSO/Sex: 1970 Female Med Rec #: [id number] Physician: Rambo Purcell MD Financial #: [id number] Pt. Type: O Room/Bed: / Admit/Disch: 04/02/25 11:14:25 - 04/02/25 23:59:59 Institution: Case Times FT Entry 1 Patient Times In Room 04/02/25 12:46:00 Out Room 04/02/25 13:14:00 Procedure Times Start 04/02/25 12:50:00 Stop 04/02/25 13:11:00 Anesthesia Times Start 04/02/25 12:46:00 Stop 04/02/25 13:14:00 Time at [facility] 04/02/25 13:01:00 Last Modified By: Maddy PERRY, Kemi Montoya 04/02/25 13:12:55 General Comments: 1255 EGD completed. /,RN 1257 Colonoscopy started. /,RN Case Attendance FT Entry 1 Entry 2 Entry 3 Case Attendee Orestes Garcia RN, Kemi Marcano CST, Wen Ferreira Role Performed Anesthesiologist Manager Financial Services - Primary Scrub - Primary Roofer Gypsum Time In 04/02/25 12:46:00 04/02/25 12:46:00 04/02/25 12:46:00 Time Out 04/02/25 13:14:00 04/02/25 13:14:00 04/02/25 13:14:00 Procedure EGD AND COLONOSCOPY(.) EGD AND COLONOSCOPY(.) EGD AND COLONOSCOPY(.) Comments Dr. Li supervising case Last Modified By: Maddy RN, Kemi Castañeda RN, Kemi Castañeda RN, Kemi Montoya 04/02/25 13:15:15 F 04/02/25 13:15:15 F 04/02/25 13:15:15 Entry 4 Entry 5 Case Attendee Binh BAKER, Rambo Medel, Gina Dietrich Role Performed Surgeon - Primary Staff - Other Time In 04/02/25 12:46:00 04/02/25 12:54:00 Time Out 04/02/25 13:14:00 04/02/25 13:14:00 Procedure EGD AND COLONOSCOPY(.) EGD AND COLONOSCOPY(.) Comments help in room Last Modified By: Maddy RN, Kemi Castañeda RN, Kemi Montoya 04/02/25 13:15:15 F 04/02/25 13:15:15 Perioperative Protocols [...] and tissue Entry 1 Skin Integrity Intact, [place], Warm, & Skin Abnormality No Dry Outcomes Met? Ye (more content not included)...[facility] Discharge Instructionson [id number] InstructionsDischarge Instructions CONSTANTINO CARDOSO :1970 Visit Date:04/02/2025 Inpatient Discharge Instructions [...] mL Oral Susp 10 mL) Procedure History Esophagogastroduodenoscopy (01/11/2022), Esophagogastroduodenoscopy (05/13/2021), Esophagogastroduodenoscopy [...] BAKER, Flavio Hairston Where: [facility] [address] [place] [address] [place] [address]- Tuesday 9:00 AM EDT With: Where: FT General Diagnostic New Follow Up Appointments after Discharge Follow Up with Binh BAKER, Rambo Dietrich [facility] When: Comments: Call for followup appointment to review any pending pathology/biopsy results Call for any problems. Where: [address] [place] [address], [address] [address] [phone] Medications What How Much When Why Instructions [...] reflux Arthritis Asymptomatic microsco (more content not included)...[facility] Medical CenterComment on above:Result Comment: Electronically Signed By: Jaiem PERRY, Yoanna\.br\Date and Time Signed: 04/02/25 13:52 EDTMain OR PACU I Recordon [id number] OR PACU I RecordMain OR PACU I Record PACU Phase I Document Type FT Summary Primary Physician: Rambo Purcell MD Finalized Date/Time: 04/02/25 15:07:37 Pt. Name: CONSTANTINO CARDOSO/Sex: 1970 Female Med Rec #: [id number] Physician: Rambo Purcell MD Financial #: [id number] Pt. Type: O Room/Bed: / Admit/Disch: 04/02/25 [...] individualized perioperative plan of care The patient's rightto privacy is maintained The patient's value system, [...] with or improved from baseline levels established preoperativelyThe patient's cardiovascular status is consistent with or improved from baseline levels established preoperatively The patient's cardiovascular status is consistent with or improved from baseline levels established preoperatively The patient demonstrates and/or reports adequate pain control throughout the perioperative period The patient received appropriate medication(s), safely administered during the perioperativeperiod Acuity Level PACU I FT Entry 1 Start Time 04/02/25 13:16:00 Stop Time 04/02/25 14:05:00 Acuity Level Acuity Level I Last Modified By: Yoanna Sandoval RN 04/02/25 15:07:32 Finalized By: Yoanna Sandoval RN Document Signatures Signed By: Yoanna Sandoval RN 04/02/25 15:07[facility] CenterMain OR Preoperative Recordon [id number] OR Preoperative RecordMain OR Preoperative Record Holding Area Document Type FT Summary Primary Physician: Rambo Purcell MD Finalized Date/Time: 04/02/25 12:05:50 Pt. Name: CONSTANTINO CARDOSO D.O.B./Sex: 1970 Female Med Rec #: [id number] Physician: Binh BAKER, Rambo Dietrich Financial #: [id number] Pt. Type: O Room/Bed: / Admit/Disch: 04/02/25 [...] or her perioperative plan of care The patient'sright to privacy is maintained Surgery Checklist FT [...] Signatures Signed By: Sunny Olmedo RN 04/02/25 12:05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 Early satiety Your Care Team Attending Physician - Rambo Purcell MD Primary Care Physician - JUDI YOUSSEF CNP This Is Your Medications List dicyclomine (Bentyl 10 mg Cap) peppermint oil (Ibgard 90 mg oral delayed release capsule) polyethylene glycol 3350 with electrolytes (NuLYTELY Eads oral powder for reconstitution) psyllium (Metamucil 3.4 [...] sertraline (sertraline 50 mg Tab) Procedures Performed Esophagogastroduodenoscopy (01/11/2022), Esophagogastroduodenoscopy (05/13/2021), Esophagogastroduodenoscopy (09/30/2020), Colonoscopy [...] Globus sensation Pearce esophagus, 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, pp_set_radio logy_subspecialty, Junior - Robertson Medications What How Much When Why Instructions New dicyclomine (Bentyl 10 mg Cap) 1 Capsules By Mouth 4 times a day Lower abdominal pain DysphagiaGlobus sensation Pearce esophagus Duration: 14 Days Pickup at [facility]/pharmacy #6177 New peppermint oil (Ibgard 90 mg oral delayed release capsule) 2 Capsules By Mouth 2 times a day Lower abdominal pain Dysphagia Globus sensation Pearce esophagus Refills: 3 Pickup at [facility]/pharmacy #6177 New polyethylene glycol 3350 with electrolytes (NuLYTELY Eads oral powder for reconstitution) Seeinstructions Lower abdominal pain Dysphagia Globus sensation Pearce esophagus Change in bowel habits follow up physicians insctructions Pickup at [facility]/pharmacy #6177 New psyllium (Metamucil 3.4 g/ 5.2 g oral powder) 3.4 Gram By Mouth 3 times a day as needed for forconstipation Lower abdominal pain Dysphagia 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 CenterGastroenterology Office/Clinic Noteon 79-00-4527Obugsadaggjikedm Office/Clinic NoteGastroenterology Office/Clinic Note Chief Complaint Abdominal pain and [...] Any GLP-1 agonists? no CT 12/18/24 @ [place]: Impression: Minimal pericardial and pleural effusion. Minor [...] 86.7 fL (02/16/25) Chloride: 107 mmol/L (02/16/25) [place] Absolute: 0.5 E9/L (02/16/25) CO2: 26 mmol/L (02/16/25) [place] Auto: 7.5 % (02/16/25) Creatinine: 1.2 mg/dL [...] JUNCTION WITH MILD TO MODERATE LYMPHOPLASMACYTIC INFLAMMATION INLAMINA PROPRIA AND HYPERPLASTIC CHANGES. ??? NO INTESTINAL METAPLASIA IDENTIFIED. B: STOMACH, BIOPSY: ??? ANTRAL MUCOSA WITH MILD CHRONIC NONSPECIFIC GASTRITIS. ??? NO INTESTINAL METAPLASIA IDENTIFIED. Assessment/Plan 1. Lower abdominal pain (R10.30: Lower abdominal pain, unspecified) Pain is sharp and constant Periumbilical Cannot drink milk, has pain and nausea afterwards Started in 2018 after she had hiatal hernia surgery, Dr Mortensen at [facility] in [place] Has early satiety, some postprandial vomiting EGD [...] as well as benefits. (more content not included)...[facility] Medical CenterComment on above:Result Comment: Electronically Signed By: Carlota Berg MA\.br\Date and Time Signed: 03/27/25 10:53 EDT\.br\Electronically Co-Signed By: Binh BAKER, Rambo Dietrich\.br\Date and Time Co-Signed: 03/27/25 16:30 EDTAlanine aminotransferase [Enzymatic activity/volume] in Serum or PlasmaOrdered By: Kailey Mosley on 98-45-5011RWA [Catalytic activity/Vol]14 U/LNormal7-52A[facility] Fayette Medical CenterComment on above:Performed By: #### LIPASE, PT, PTT, CBC, BNP, CK, HS TROP, HEPATIC, BMP #### [facility] [address] [place] [address] USAAlbumin [Mass/volume] in Serum or Plasma by Bromocresol green (BCG) dye binding methoOrdered By: Kailey Mosley on 76-53-2442Vpijkvx BCG dye [Mass/Vol]4.3 g/dL3.5-5.7FHighland District HospitalAlkaline phosphatase [Enzymatic activity/volume] in Serum or PlasmaOrdered By: Kailey Mosley on 10-66-6992FSZ [Catalytic activity/Vol]135 U/IGbte57-534AznwxdchxAdena Fayette Medical CenterComment on above:Performed By: #### LIPASE, PT, PTT, CBC, BNP, CK, HS TROP, HEPATIC, BMP #### [facility] [address] [place] [id number] USAAppearance of UrineOrdered By: Kailey Mosley on 23-51-0577Niyuqzozkg (U)ClearNormalClearAdena Fayette Medical CenterComment on above:Order Comment: Name Collection Type:: Clean-Voided MidstreamPerformed By: #### ADDONUAPLUS, CUU ####[facility] [address] [place], [place] USAAspartate aminotransferase [Enzymatic activity/volume] in Serum or PlasmaOrdered By: Kailey Mosley on 14-73-7668VID [Catalytic activity/Vol]18 U/UCqzncv66-90IdixpwyfpAdena Fayette Medical Center Comment on above:Performed By: #### LIPASE, PT, PTT, CBC, BNP, CK, HS TROP, HEPATIC, BMP #### [facility] [address] [place] [address] USABNP ser/plasOrdered By: Kailey Mosley on 03-12-2025 Natriuretic peptide B (Bld) [Mass/Vol]22.0 pg/mLNormal5-100A[facility]ayette Medical CenterComment on above:Result Comment: PERFORMED BY: [place] [address] PATHOLOGIST [employer] DARCI MCGHEE M.D.Performed By: #### LIPASE, PT, PTT, CBC, BNP, CK, HS TROP, HEPATIC, BMP #### [place] [id number] USABacteria [Presence] in Urine by AutomatedOrdered By: Kailey Mosley on 38-49-0614Farwnayc Auto Ql (U)None seen [HPF]None Seen [facility] Medical CenterBasic Metabolic Panelon 52-49-3422Eeocototvi Clr Calc Epjvlveq06.08NormBeraja Medical Institute Physician GroupComment on above: Performed By: #### LIPASE, PT, PTT, CBC, BNP, CK, HS TROP, HEPATIC, BMP #### [place] [id number] USAGFR/1.73 sq M.predicted MDRD (S/P/Bld) [Vol rate/Area] mL/min/{1.73_m2}NormalThe [facility] Physician [facility] River OaksComment on above:Performed By: #### LIPASE, PT, PTT, CBC, BNP, CK, HS TROP, HEPATIC, BMP #### [place] [id number] USABasophils [#/volume] in Blood by Automated countOrdered By: Kaiely Mosley on 69-09-7097Vuwuavwma (Bld) [#/Vol]0.0 10*3/uLNormal0.0-0.2 [facility] Medical CenterComment on above:Result Comment: PERFORMED BY: [place] [id number] PATHOLOGIST [employer] DARCI MCGHEE M.D.Performed By: #### LIPASE, PT, PTT, CBC, BNP, CK, HS TROP, HEPATIC, BMP #### [facility] [address] [place] [id number] USABasophils/100 leukocytes in Blood by Automated count Ordered By: Kailey Mosley on 85-21-9901Ucxvykphq/100 WBC (Bld)0.7 %Normal. [facility] Medical CenterComment on above:Performed By: #### LIPASE, PT, PTT, CBC, BNP, CK, HS TROP, HEPATIC, BMP #### [facility] [address] [place] [address] USABilirubin Test strip Ql (U)Ordered By: Kailey Mosley on 57-35-0855Bwqgdeakp Ql (U)NegativeNegativeAdena Fayette Medical Center Bilirubin.direct [Mass/volume] in Serum or PlasmaOrdered By: Kailey Mosley on 31-79-2248Gmcjeqyjj.direct [Mass/Vol]0.00 mg/dLLow0.03-0.18FHighland District HospitalComment on above:If the DBIL is less than 0.1, IBIL is not able to becalculated.Bilirubin.total [Mass/volume] in Serum or PlasmaOrdered By: Kailey Mosley on 68-12-5505Frfafjuio [Mass/Vol]0.3 mg/dLNormal0.3-1.0A[facility] Medical CenterComment on above:Performed By: #### LIPASE, PT, PTT, CBC, BNP, CK, HS TROP, HEPATIC, BMP #### [facility] [address] [place] [id number] USACT abdomen pelvis w conon 06-62-1061LM abdomen pelvis w [facility] Main [place] [address] [place] [address] CT Scan Report Signed Patient: Constantino Cardoso MR#: [id number] : 1970 Acct:[id number] Age/Sex: 54 / F ADM Date: 03/12/25 Loc: ER Room: Type: [facility] ER Attending Dr: Copies to: Kailey [...] Casey M.D. 03/12/2025 10:20 PM Dictation Location: [place] [address] Transcribed By: [facility] 03/12/252219 Dictated By: Surendra Casey MD 03/12/252213 Signed By: 03/12/252219[facility] Physician GroupCT angio chest PE protocolon 08-68-3802HX angio chest PE protocolGRAND LAKE [facility] Main [place] [address] [place], [place] [address] CT Scan Report Signed Patient: Constantino Cardoso MR#: [id number] : 1970 Acct:[id number] Age/Sex: 54 / F ADM Date: 03/12/25 Loc: ER Room: Type: [facility] ER Attending Dr: Copies to: Kailey [...] Casey M.D. 03/12/2025 10:12 PM Dictation Location: [place] [address] Transcribed By: [facility] 03/12/252211 Dictated By: Surendra Casey MD 03/12/252199 Signed By: 03/12/252211[facility] Physician GroupCalcium [Mass/volume] in Serum or PlasmaOrdered By: Kailey Mosley on 21-66-6062Qtdzxga [Mass/Vol]9.6 mg/dL Normal8.6-10.3FHighland District HospitalComment on above:Performed By: #### LIPASE, PT, PTT, CBC, BNP, CK, HS TROP, HEPATIC, BMP #### [facility] [address] [place] [address] USACarbon dioxide, total [Moles/volume] in Serum or Plasma Ordered By: Kailey Mosley on 26-86-6785CS4 [Moles/Vol]26.2 mmol/LNormal 21.0-31.0A[facility] Fayette Medical CenterComment on above:Performed By: #### LIPASE, PT, PTT, CBC, BNP, CK, HS TROP, HEPATIC, BMP #### [facility] [address] [place] [address] USAChloride [Moles/volume] in Serum or PlasmaOrdered By: Kailey Mosley on 84-78-1000Qtecdgcu [Moles/Vol]108 mmol/NCbhf59-583NnumtuhidAdena Fayette Medical CenterComment on above:Performed By: #### LIPASE, PT, PTT, CBC, BNP, CK, HS TROP, HEPATIC, BMP #### [facility] [address] [place] [address] USAColor of Urine by AutoOrdered By: Kailey Mosley on 76-46-3784Hckaj (U)Light-yellowNormalYellowAdena Fayette Medical Center Comment on above:Order Comment: Name Collection Type:: Clean-Voided Midstream Performed By: #### ADDNEO, CUU ####[facility] [place], [place] USAComplete Blood Count Auto Diffon 62-04-1824Xxay Corpuscular HGB Conc33.4 g/aSCkedql85.0-35.0The [facility] Physician GroupComment on above:Performed By: #### LIPASE, PT, PTT, CBC, BNP, CK, HS TROP, HEPATIC, BMP #### [place] [address] USAMonocytes/100 WBC (Bld)17.34 %Normal0.00-20.00The [facility] Physician GroupComment on above:Performed By: #### LIPASE, PT, PTT, CBC, BNP, CK, HS TROP, HEPATIC, BMP #### [facility] [address] [place] [address] USANRBC%0.1 /100{WBC}Normal0-0.5The [facility] Physician Group Comment on above:Performed By: #### LIPASE, PT, PTT, CBC, BNP, CK, HS TROP, HEPATIC, BMP #### [facility] [address] [place] [address] USAWhite Blood Count6.7 [CFU]/mLNormal3.8-11.6The [facility] Physician GroupComment on above:Performed By: #### LIPASE, PT, PTT, CBC, BNP, CK, HS TROP, HEPATIC, BMP #### [facility] [address] [place] [address] USACreatine kinase [Enzymatic activity/volume] in Serum or PlasmaOrdered By: Kailey Mosley on 03-86-5998GU [Catalytic activity/Vol]109 U/QMhixzi23-566LxvowexjaAdena Fayette Medical CenterComment on above:Performed By: #### LIPASE, PT, PTT, CBC, BNP, CK, HS TROP, HEPATIC, BMP #### [facility] [address] [place] [address] USACreatinine [Mass/volume] in Serum or PlasmaOrdered By: Kailey Mosley on 85-50-0328Wxrcjrvgbz [Mass/Vol]0.88 mg/dLNormal0.60-1.20 [facility] CenterComment on above:Performed By: #### LIPASE, PT, PTT, CBC, BNP, CK, HS TROP, HEPATIC, BMP #### [facility] [address] [place] [address] USADipstick and Microscopicon 19-11-4317Cvovsyyi,UrineNone SeenNormalNone SeenThe [facility] Physician GroupComment on above:Order Comment: Name Collection Type:: Clean-Voided MidstreamPerformed By: #### MAUREEN, CUU ####[facility] [address] [place], [place] [place] Bilirubin,UrineNegativeNormalNegativeThe [facility] Physician GroupComment on above:Order Comment: Name Collection Type:: Clean-Voided MidstreamPerformed By: #### ADDJONELPLUS, CUU ####[facility] [facility], [address] USAGlucose Ql (U)NormalNormalNormalThe [facility] Physician GroupComment on above:Order Comment: Name Collection Type:: Clean- Voided MidstreamPerformed By: #### ADDONUAPLUS, CUU ####[address], [place] USAHyaline Casts,UrineNoneNormal 0-8The [facility] Physician GroupComment on above:Order Comment: Name Collection Type:: Clean-Voided MidstreamPerformed By: #### ADDONUAPLUS, CUU ####[address] USAMucus,UrineRareNormal The [facility] Physician GroupComment on above:Order Comment: Name Collection Type:: Clean-Voided MidstreamResult Comment: PERFORMED BY: [facility] [address] [facility] [place] [address] PATHOLOGIST [employer] DARCI MCGHEE M.D.Performed By: #### ADDONUAPLUS, CUU ####[address], [id number] USANitrite,UrineNegativeNormal NegativeThe [facility] Physician GroupComment on above:Order Comment: Name Collection Type:: Clean-Voided MidstreamPerformed By: #### ADDONUAPLUS, CUU ####[address] USAOccult Blood,UrineNegativeNormalNegativeThe [facility] Physician GroupComment on above: Order Comment: Name Collection Type:: Clean-Voided MidstreamResult Comment: PERFORMED BY: [facility] [address] [facility] [place] [address] PATHOLOGIST [employer] DARCI MCGHEE M.D.Performed By: #### ADDONUAPLUS, CUU ####[address], [id number] USAProtein,UrineNegativeNormal NegativeThe [facility] Physician GroupComment on above:Order Comment: Name Collection Type:: Clean-Voided MidstreamPerformed By: #### ADDONUAPLUS, CUU ####[address] [place] RBC,Pbrrd7-3Azznoc7-8Dih [facility] Physician GroupComment on above:Order Comment: Name Collection Type:: Clean-Voided MidstreamPerformed By: #### ADDONUAPLUS, CUU ####[address] [address] USASpecificy [place],Urine1.044Vjiv1.001-1.030The [facility] Physician GroupComment on above:Order Comment: Name Collection Type:: Clean-Voided MidstreamPerformed By: #### ADDONUAPLUS, CUU ####[address] USASquamous Epithelial Cell,Urine1-2Normal 0-2The [facility] Physician GroupComment on above:Order Comment: Name Collection Type:: Clean-Voided MidstreamPerformed By: #### ADDONUAPLUS, CUU ####[address] USAUrobilinogen,Urine NormalNormalNormalThe [facility] Physician GroupComment on above:Order Comment: Name Collection Type:: Clean-Voided MidstreamPerformed By: #### ADDONUAPLUS, CUU ####[address] [place] WBC,Szdta0-7Aixgul3-0Nkh [facility] Physician GroupComment on above:Order Comment: Name Collection Type:: Clean-Voided MidstreamPerformed By: #### ADDONUAPLUS, CUU ####[address] [address] USAEosinophils [#/volume] in Blood by Automated countOrdered By: Kailey Mosley on 95-01-0705Ndgjhfjcttg (Bld) [#/Vol]0.2 10*3/uLNormal0.0-0.45A[facility] Medical CenterComment on above:Performed By: #### LIPASE, PT, PTT, CBC, BNP, CK, HS TROP, HEPATIC, BMP #### [facility] [address] [place] [address] USAEosinophils/100 leukocytes in Blood by Automated count Ordered By: Kailey Mosley on 68-25-2720Koejiffzmuk/100 WBC (Bld)3.7 %Normal. [facility] CenterComment on above:Performed By: #### LIPASE, PT, PTT, CBC, BNP, CK, HS TROP, HEPATIC, BMP #### [facility] [address] [place] [address] USAEpithelial cells.squamous [#/area] in Urine sediment by Automated countOrdered By: Kailey Mosley on 75-69-2930Rxlosxtgwn cells.squamous Auto (Urine sed) [#/Area]1-2 [HPF]0-2FHighland District HospitalErythrocyte distribution width [Ratio] by Automated countOrdered By: Kailey Mosley on 00-36-1746Cqnbhqhshzg distribution width (RBC) [Ratio]14.4 % Mpzibx66.9-15.3FHighland District HospitalComment on above:Performed By: #### LIPASE, PT, PTT, CBC, BNP, CK, HS TROP, HEPATIC, BMP #### [facility] [address] [place] [id number] USAErythrocytes [#/area] in Urine sediment by Automated count Ordered By: Kailey Mosley on 19-26-5313BKT Auto (Urine sed) [#/Area]3-4 [HPF] 0-4FHighland District HospitalErythrocytes [#/volume] in Blood by Automated countOrdered By: Kailey Mosley on 06-72-7891WNH (Bld) [#/Vol]4.14 10*6/uLNormal3.60-5.00A[facility] Medical CenterComment on above: Performed By: #### LIPASE, PT, PTT, CBC, BNP, CK, HS TROP, HEPATIC, BMP #### [facility] [address] [place] [address] USAGlucose [Mass/volume] in Serum or PlasmaOrdered By: Kailey Mosley on 61-10-4343Obmyeqn [Mass/Vol]77 mg/uRWvmvkn19-416SkllfjfaxAdena Fayette Medical CenterComment on above:ADA recommended reference rangeRandom Glucose Reference Range is dependent on time and content of last meal. Glucose of more than 200 mg/dL in a nonstressed, ambulatory subject supports the diagnosisof Diabetes Mellitus.Result Comment: Random Glucose Reference Range is dependent on time and content of last meal. Glucose of more than 200 mg/dL in a nonstressed, ambulatory subject supports the diagnosis of Diabetes Mellitus. ADA recommended reference rangePerformed By: #### LIPASE, PT, PTT, CBC, BNP, CK, HS TROP, HEPATIC, BMP #### [facility] [address] [place] [id number] USAGlucose [Mass/volume] in Urine by Test stripOrdered By: Kailey Mosley on 57-46-5222Atrubrd Test strip (U) [Mass/Vol]Normal mg/dLNormal [facility] Medical CenterHematocrit [Volume Fraction] of Blood by Automated countOrdered By: Kailey Mosley on 03-87-6998Iekjedfqqd (Bld) [Volume fraction]36.5 %Joucju77.0-46.4FHighland District HospitalComment on above:Performed By: #### LIPASE, PT, PTT, CBC, BNP, CK, HS TROP, HEPATIC, BMP #### [facility] [address] [place] [id number] USAHemoglobin Test strip Ql (U)Ordered By: Kailey Mosley on 66-46-8180Sqfypscwfn Ql (U)NegativeNegativeAdena Fayette Medical Center Hemoglobin [Mass/volume] in BloodOrdered By: Kailey Mosley on 03-12-2025 Hemoglobin (Bld) [Mass/Vol]12.2 g/lXKzjkbn18.8-15.4FHighland District HospitalComment on above:Performed By: #### LIPASE, PT, PTT, CBC, BNP, CK, HS TROP, HEPATIC, BMP #### [facility] [address] [place] [address] USAHepatic Panelon 37-37-1741Ksblroq [Mass/Vol]4.3 g/dLNormal 3.5-5.7The [facility] Physician GroupComment on above:Performed By: #### LIPASE, PT, PTT, CBC, BNP, CK, HS TROP, HEPATIC, BMP #### [facility] [address] [place] [address] USABilirubin,Indirect0.3 mg/dLNormalThe [facility] Physician GroupComment on above:Performed By: #### LIPASE, PT, PTT, CBC, BNP, CK, HS TROP, HEPATIC, BMP #### [facility] [address] [place] [address] USABilirubin.indirect [Mass/Vol]0.00 mg/dLLow0.03-0.18The [facility] Physician GroupComment on above:Result Comment: If the DBIL is less than 0.1, IBIL is not able to be calculated.Performed By: #### LIPASE, PT, PTT, CBC, BNP, CK, HS TROP, HEPATIC, BMP #### [facility] [address] [place] [address] USAHyaline casts [#/area] in Urine sediment by Automated countOrdered By: Kailey Mosley on 54-53-4021Mpofiax casts Auto (Urine sed) [#/Area]None [LPF]0-8[facility]ayette Medical CenterINR in Platelet poor plasma by Coagulation assayOrdered By: Kailey Mosley on 96-32-9678BGV Coag (PPP) [Relative time]1.0 {INR}NormalAdena Fayette Medical CenterComment on above:INR Therapeutic Range A) Pre- and Peroperative OAT started two weeks before surgery. NOT HIP SURGERY: 1.5 - 2.5 HIP SURGERY: 2 - 3B) Primary and secondary prevention of venous THROMBOSIS: 2 - 3C) Active venous thrombosis, pulmonary embolismand prevention of recurrent venous thrombosis: 2 - 3D) Preve ntion of arterial thromboembolismincluding patients with mechanical heart valves: 3 - 4.5Result Comment: INR Therapeutic Range A) Pre- and [...] patients with mechanical heart valves: 3 - 4.5Performed By: #### LIPASE, PT, PTT, CBC, BNP, CK, HS TROP, HEPATIC, BMP ####[place] [place] [place] [address] USAKetones [Presence] in Urine by Test stripOrdered By: Kailey Mosley on 32-02-8860Zrnltws Ql (U)NegativeNormal NegativeAdena Fayette Medical CenterComment on above:Order Comment: Name Collection Type:: Clean-Voided MidstreamPerformed By: #### ADDONUAPLUS, CUU ####[address] [place] [place] Leukocyte esterase [Presence] in Urine by Test stripOrdered By: Kailey Mosley on 83-84-4739Gindlyodx esterase Test strip Ql (U)3+NormalNegativeAdena Fayette Medical CenterComment on above:Order Comment: Name Collection Type:: Clean-Voided MidstreamPerformed By: #### ADDONUAPLUS, CUU ####[address] USALeukocytes [#/area] in Urine sediment by Automated countOrdered By: Kailey Mosley on 78-52-4773XGW Auto (Urine sed) [#/Area]5-9 [HPF]High0-4FHighland District HospitalLeukocytes [#/volume] corrected for nucleated erythrocytes in Blood by Automated coun Ordered By: Kailey Mosley on 59-65-1332TAO corrected for nucl RBC Auto (Bld) [#/Vol]6.7 10*3/uL3.8-11.6FHighland District HospitalLeukocytes [#/volume] in Blood by Automated countOrdered By: Kailey Mosley on 40-65-3338DWX (Bld) [#/Vol]6.7 10*3/uLNormal3.8-11.6FHighland District HospitalComment on above:Performed By: #### LIPASE, PT, PTT, CBC, BNP, CK, HS TROP, HEPATIC, BMP #### [facility] [address] [place] [address] USALipase [Enzymatic activity/volume] in Serum or Plasma Ordered By: Kailey Mosley on 00-84-4309Tngidm [Catalytic activity/Vol]38.0 U/L Adatsf46.0-82.0A[facility]ayette Medical CenterComment on above:Result Comment: PERFORMED BY: [place] [address] PATHOLOGIST [employer] DARCI MCGHEE M.D.Performed By: #### LIPASE, PT, PTT, CBC, BNP, CK, HS TROP, HEPATIC, BMP #### [place] [address] USALymphocytes [#/volume] in Blood by Automated countOrdered By: Kailey Mosley on 38-95-1969Wbzpaengpwe (Bld) [#/Vol]1.9 10*3/uLNormal 1.00-4.8A[facility] Medical CenterComment on above:Performed By: #### LIPASE, PT, PTT, CBC, BNP, CK, HS TROP, HEPATIC, BMP #### [place] [address] USALymphocytes/100 leukocytes in Blood by Automated count Ordered By: Kailey Mosley on 64-19-7245Dhpuahsnjpc/100 WBC (Bld)28.3 %Normal. [facility] Medical CenterComment on above:Performed By: #### LIPASE, PT, PTT, CBC, BNP, CK, HS TROP, HEPATIC, BMP #### [address] [Entitic mass] by Automated countOrdered By: Kailey Mosley on 30-95-9569FCF (RBC) [Entitic mass]29.5 btQqbnsf60.7-34.3FHighland District HospitalComment on above:Performed By: #### LIPASE, PT, PTT, CBC, BNP, CK, HS TROP, HEPATIC, BMP #### [place] [id number] [facility] Auto (RBC) [Mass/Vol]Ordered By: Kailey Mosley on 13-71-7486HVEZ (RBC) [Mass/Vol]33.4 g/dL32.0-35.0[facility] Medical CenterMCV [Entitic volume] by Automated countOrdered By: Kailey Mosley on 42-27-2467XJT (RBC) [Entitic vol]88.3 sGKkyevj76-638EocjdysoaAdena Fayette Medical CenterComment on above:Performed By: #### LIPASE, PT, PTT, CBC, BNP, CK, HS TROP, HEPATIC, BMP #### [facility] [address] [place] [id number] USAMonocyte distribution width [Entitic volume] in Blood by AutomatedOrdered By: Kailey Mosley on 66-48-4579Tgweeudo distribution width Auto (Bld) [Entitic vol]17.34 %0.00-20.00[facility] Monocytes [#/volume] in Blood by Automated countOrdered By: Kailey Mosley on 83-53-9025Bwcyxxght (Bld) [#/Vol]0.5 10*3/uLNormal0.0-0.8[facility] CenterComment on above:Performed By: #### LIPASE, PT, PTT, CBC, BNP, CK, HS TROP, HEPATIC, BMP #### [facility] [address] [place] [id number] USAMonocytes/100 leukocytes in Blood by Automated count Ordered By: Kaiely Mosley on 52-81-5345Xmqbhmbre/100 WBC (Bld)7.8 %Normal. [facility] CenterComment on above:Performed By: #### LIPASE, PT, PTT, CBC, BNP, CK, HS TROP, HEPATIC, BMP #### [facility] [address] [place] [id number] USAMucus [Presence] in Urine by AutomatedOrdered By: Kailey Mosley on 41-14-3297Pdwoh Auto Ql (U)Rare [LPF][facility] Medical CenterNeutrophils [#/volume] in Blood by Automated countOrdered By: Kailey Mosley on 89-24-0858Woslxgrgkjn (Bld) [#/Vol]4.0 10*3/uLNormal1.8-7.7FHighland District HospitalComment on above:Performed By: #### LIPASE, PT, PTT, CBC, BNP, CK, HS TROP, HEPATIC, BMP #### [facility] [address] [place] [address] USANeutrophils/100 leukocytes in Blood by Automated count Ordered By: Kailey Mosley on 19-34-9867Wzsfuhdqbem/100 WBC (Bld)59.5 %Normal. [facility] CenterComment on above:Performed By: #### LIPASE, PT, PTT, CBC, BNP, CK, HS TROP, HEPATIC, BMP #### [facility] [address] [place] [address] USANitrite Test strip Ql (U)Ordered By: Kailey Mosley on 51-04-0875Vivqihq Ql (U)NegativeNegativeAdena Fayette Medical CenterNo Panel InformationOrdered By: Kailey Mosley on 23-97-4677Hvwbbkmis GFR (CKD-EPI)> 60.0 mL/MinAdena Fayette Medical CenterPharmacy Creatinine Clearance (Chem82.08[facility] Medical CenterNucleated erythrocytes [Presence] in Blood by Automated countOrdered By: Kailey Mosley on 03-12-2025 Nucleated RBC Auto Ql (Bld)0.1 /100{WBC}0-0.5FHighland District Hospital Partial Thromboplastin Timeon 30-15-5447cRLR Coag (Bld) [Time]34.7 sNormal 25.1-36.5The [facility] Physician GroupComment on above:Result Comment: A hematocrit value greater than 55% may lead to inaccurate results in coagulation testing. Patients having hematocrit values >55% require a special collection tube for coagulation studies. Please contact the laboratory at [phone] for redraw instructions. PERFORMED BY: [facility] [address] [place] [address] PATHOLOGIST [employer] DARCI MCGHEE M.D.Performed By: #### LIPASE, PT, PTT, CBC, BNP, CK, HS TROP, HEPATIC, BMP ####[facility] [address] [place] [address] USAPlatelet mean volume [Entitic volume] in Blood by Automated count Ordered By: Kailey Mosley on 97-42-4704Gkvfytii mean volume (Bld) [Entitic vol]7.3 fLNormal6.3-10.7FHighland District HospitalComment on above: Performed By: #### LIPASE, PT, PTT, CBC, BNP, CK, HS TROP, HEPATIC, BMP #### [facility] [address] [place] [address] USAPlatelets [#/volume] in Blood by Automated countOrdered By: Kailey Mosley on 85-19-6402Zmofzuqnk (Bld) [#/Vol]379 10*3/vIEuiley392-208 [facility] CenterComment on above:Performed By: #### LIPASE, PT, PTT, CBC, BNP, CK, HS TROP, HEPATIC, BMP #### [place] [address] USAPotassium [Moles/volume] in Serum or PlasmaOrdered By: Kailey Mosley on 57-40-4531Pcscapenl [Moles/Vol]4.7 mmol/LNormal3.5-5.1 [facility] CenterComascension borgess hospital on above:Hemolysis is present at a level that could interfere with the result.Contact lab if redraw is required Result Comment: Hemolysis is present at a level that could interfere with the result. Contact lab if redraw is requiredPerformed By: #### LIPASE, PT, PTT, CBC, BNP, CK, HS TROP, HEPATIC, BMP #### [place] [address] USAProtein Test strip (U) [Mass/Vol]Ordered By: Kailey Mosley on 35-45-0188Coktnqr (U) [Mass/Vol]NegativeNegativeAdena Fayette Medical CenterProtein [Mass/volume] in Serum or PlasmaOrdered By: Kaliey Mosley on 96-31-1118Rpvamas [Mass/Vol]6.9 g/dLNormal6.4-8.9[facility] Medical CenterComment on above:Performed By: #### LIPASE, PT, PTT, CBC, BNP, CK, HS TROP, HEPATIC, BMP #### [address] [address] USAProthrombin time (PT)Ordered By: Kailey Mosley on 16-11-3178BG Coag (PPP) [Time]11.7 sNormal9.0-12.9[facility] Medical CenterComment on above:A hematocrit value greater than 55% may lead to inaccurate results in coagulation testing. Patientshaving hematocrit values >55% require a special collection tube for coagulation studies. Please contact the laboratory at [phone] for redraw instructions.Result Comment: A hematocrit value greater than 55% may lead to inaccurate results in coagulation testing. Patients having hematocrit values >55% require a special collection tube for coagulation studies. Please contact the laboratory at [phone] for redraw instructions.Performed By: #### LIPASE, PT, PTT, CBC, BNP, CK, HS TROP, HEPATIC, BMP ####[facility] [address] [place] [id number] [facility] Serum globulin measurement by calculation (mass/volume)Ordered By: Kailey Mosley on 59-82-2391Xzgvober (S) [Mass/Vol]2.6 g/dLNormalAdena Fayette Medical CenterComment on above:Performed By: #### LIPASE, PT, PTT, CBC, BNP, CK, HS TROP, HEPATIC, BMP #### [facility] [address] [place] [address] USASerum or plasma albumin/globulin mass ratioOrdered By: Kailey Mosley on 87-71-4795Cujzqvn/Globulin [Mass ratio]1.7 {ratio}Normal [facility] CenterComment on above:Performed By: #### LIPASE, PT, PTT, CBC, BNP, CK, HS TROP, HEPATIC, BMP #### [facility] [address] [place] [id number] USASerum or plasma anion gap determinationOrdered By: Kailey Mosley on 97-67-2464Fqcun gap [Moles/Vol]10.5 mmol/LNormal6.0-15.0 [facility] CenterComment on above:Performed By: #### LIPASE, PT, PTT, CBC, BNP, CK, HS TROP, HEPATIC, BMP #### [facility] [address] [place] [address] USASerum or plasma non-glucuronidated bilirubin measurement (mass/volume)Ordered By: Kailey Franciscomiguelina on 31-74-8884Nwyhoxrxw.indirect [Mass/Vol]0.3 mg/dLMercy Health Tiffin Hospitalodium [Moles/volume] in Serum or PlasmaOrdered By: Kailey Franciscomiguelina on 94-48-6621Oixrfy [Moles/Vol]140 mmol/IApgrpc891-271BkcdwxampAdena Fayette Medical CenterComment on above:Performed By: #### LIPASE, PT, PTT, CBC, BNP, CK, HS TROP, HEPATIC, BMP #### [facility] [address] [place] [address] USASpecific gravity Test strip (U) [Rel density]Ordered By: Kailey Franciscomiguelina on 72-13-6362Qbzhctpv gravity (U) [Rel density]1.032High 1.001-1.030[facility] Medical CenterTroponin I High Sensitivityon 02-62-3039Lxwpumje I High Foxagqujtsh0Snajlk7-04Qnq [facility] Comment on above:Result Comment: The Troponin units of report have been changed to meet the Chest Pain Accreditation requirement, element EC5.M1l2. Troponin units are changed from pg/ml to ng/L. Also, the decimal is removed and results are in whole numbers. PERFORMED BY: [place] [address] PATHOLOGIST [employer] DARCI MCGHEE M.D.Performed By: #### HS TROP ####[facility] [place] [id number] USATroponin I High Riddlsefhen1Zbdbph6-44 The [facility] Physician GroupComment on above:Result Comment: The Troponin units of report have been changed to meet the Chest Pain Accreditation requirement, element EC5.M1l2. Troponin units are changed from pg/ml to ng/L. Also, the decimal is removed and results are in whole numbers. PERFORMED BY: [place] [id number] PATHOLOGIST [employer] DARCI MCGHEE M.D.Performed By: #### LIPASE, PT, PTT, CBC, BNP, CK, HS TROP, HEPATIC, BMP #### [facility] [address] [place] [address] USATroponin I.cardiac [Mass/volume] in Serum or Plasma by Detection limit <= 0.01 ng/mLOrdered By: Kailey Mosley on 67-78-6097Hkmednjq I.cardiac DL <= 0.01 ng/mL [Mass/Vol]6 ng/L0-15[facility] Comment on above:The Troponin units of report have been changed to meet the Chest Pain Accreditation requirement, element EC5.M1l2. Troponin units are changed from pg/ml to ng/L. Also, the decimal is removed and results are in whole numbers.Urea nitrogen [Mass/volume] in Serum or PlasmaOrdered By: Kailey Mosley on 45-55-9741Hrre nitrogen [Mass/Vol]26 mg/dLCity Hospital7-[facility] Medical CenterComment on above:Performed By: #### LIPASE, PT, PTT, CBC, BNP, CK, HS TROP, HEPATIC, BMP #### [facility] [address] [place] [id number] USAUrine Cultureon 43-91-6288Jjoslouf identified Cx Nom (U) <9,000 colonies/ml mixed bacterial skin contaminants 2 Days PERFORMED BY: [place] [address] PATHOLOGIST [employer] DARCI MCGHEE M.D.NormalThe [facility] Physician GroupComment on above: Performed By: #### COLEMAN REDDYU ####[facility] [address] [place], [place] USAUrobilinogen Test strip (U) [Mass/Vol]Ordered By: Kailey Mosley on 80-97-8905Deqqmpskovow (U) [Mass/Vol]Normal mg/dLNormal [facility] CenterX-ray reportOrdered By: Surendra Casey on 30-13-4895Xsoil reportGRAND LAKE [facility] Main [place] [address] [place] [address] XRay Report Signed Patient: Constantino Cardoso MR#: [id number] : 1970 Acct:[id number] Age/Sex: 54 / F ADM Date: 5 [...] Casey M.D. 03/12/2025 8:55 PM Dictation Location: [place] [address] Transcribed By: [facility] 03/12/252054 Dictated By: Surendra Casey MD 03/12/252053 Signed By: 03/12/252054 [facility] Work Phone: xr chest 1V portableon 85-50-4328QM chest 1V portable [facility] Main [place] [address] [place] [address] XRay Report Signed Patient: Constantino Cardoso MR#: [id number] : 1970 Acct:[id number] Age/Sex: 54 / F ADM Date: 03/12/25 [...] Casey M.D. 03/12/2025 8:55 PM Dictation Location: [facility]-- Transcribed By: ANDREA 03/12/252054 Dictated By: Surendra Casey MD 03/12/252053 Signed By: 03/12/252054NoAtrium Health Steele Creek Physician GroupaPTT in Platelet poor plasma by Coagulation assayOrdered By: Kailey Mosley on 02-04-5027sFFH Coag (PPP) [Time] 34.7 s25.1-36.5FHighland District HospitalComment on above:A hematocrit value greater than 55% may lead to inaccurate results in coagulation testing. Patientshaving hematocrit values >55% require a special collection tube for coagulation studies. Please contact the laboratory at [phone] for redraw instructions.pH of Urine by Test stripOrdered By: Kailey Mosley on 03-12-2025 pH (U)5.5 [pH]Normal5.0-9.0[facility] CenterComment on above: Order Comment: Name Collection Type:: Clean-Voided MidstreamPerformed By: #### REMAUAPLUS, CUU ####[facility] [address] [place] [address] [facility] HOSPITALOffice Visiton 08-30-9557Ukmhak-up [id number] Constantino Cardoso 1970 F Date Provider Department Center 02/28/2025 [address]14[address]-KJJLLEEDISON KINCAID MICHAEL [facility] Family History Problem Relation Age of Onset Heart attack Father Coronary artery disease Brother Family Status - Relation Status Age at Mother Alive Father Sister Alive Brother Level of Service:70337 AR OFFICE/OUTPATIENT ESTABLISHED MOD MDM 30 MIN Reason for Visit and Comments: follow up stress test [Other] - Had routine stress test last month. Chest Pain [] - Still having chest pain but attributes this to her hiatal hernia. She has upcoming EGD and colonoscopy. Shortness of Breath [] Valve Disorder [3372] Hypertension [769429] - PCP increased her lisinopril from 10mg daily to 40mg daily. Says it was running very high.NormalUnBarberton Citizens HospitalXR Chest 2 Viewson 44-76-9541AK Chest 2 ViewsExam Date/Time: 02/16/2025 19:40 EDT Reason for Exam: difficulty swallowing;Other (please specify) Report IMPRESSION: No acute radiographic abnormality. EXAMINATION: XR Chest 2 Views Clinical History: Difficulty swallowing. Comparison: 10/19/2024. RESULT: No focal consolidation. No pleural effusion. No pneumothorax. Stable cardiomediastinal silhouette. No acute osseous findings. Degenerative changes. Hiatal hernia, grossly unchanged. Ordering Provider: Prosper Bergman FINAL REPORT Dictated: 02/17/2025 9:48 am Alden Sosa MD Signed (Electronic Signature): 02/17/2025 9:48 am Signed by: Alden Sosa MD Transcribed by: REZA Technologist: [facility] GALION HOSPITALAliviaviktoriyaWhite Hospital w/ Auto Diffon 96-29-1556Ksfncspv Absolute0.0 E9/LNormal0.0-0.2FAvita Health System Bucyrus HospitalComment on above:Performed By: #### [id number] #### [facility] [address] [place], [place] [address]Htzkycvhz/100 WBC (Bld)0.6 %Normal0.0-2.0[facility] City HospitalComment on above:Performed By: #### [id number] #### [facility] [address] [place], [place] [address]Ifo Absolute0.3 E9/LNormal0.0-0.5FAvita Health System Bucyrus Hospital Comment on above:Performed By: #### [id number] #### [facility] [address] [place], [place] [address]Tbrnueqmtvq/100 WBC (Bld)5.2 %Normal0.0-8.0[facility] City HospitalComment on above:Performed By: #### [id number] #### [facility] [address] [place], [place] [address]Bdgfdsrxyrf distribution width (RBC) [Ratio]13.5 %Normal 10.9-14.2FAvita Health System Bucyrus HospitalComment on above:Performed By: #### [id number] #### [facility] [address] [place], [place] [address]Ucoevifxtm (Bld) [Volume fraction]37.7 %Hdjchn13.0-46.0[facility] HospitalComment on above:Performed By: #### [id number] #### [facility] [address] [place], [place] [address]Sqasbgkoqh (Bld) [Mass/Vol]12.6 g/sQGrivys51.0-16.0[facility] HospitalComment on above:Performed By: #### [id number] #### [facility] [address] [place], [place] [address]Zrwso Absolute1.7 E9/LNormal1.0-4.0[facility] Comment on above:Performed By: #### [id number] #### [facility] [address] [place], [place] [address]Pnnknjgazgq/100 WBC (Bld)26.0 %Yzyuxw69.0-50.0[facility] HospitalComment on above:Performed By: #### [id number] #### [facility] [address] [place], [place] [address]PUQ (RBC) [Entitic mass]29.0 asShryfd48.0-34.0[facility] HospitalComment on above:Performed By: #### [id number] #### [facility] [address] [place], [place] [address]UULJ (RBC) [Mass/Vol]33.5 g/wGAcyydj11.4-36.0[facility] HospitalComment on above:Performed By: #### [id number] #### [facility] [address] [place], [place] [address]XWM (RBC) [Entitic vol]86.7 rPSwdfve97.0-100.0[facility] HospitalComment on above:Performed By: #### [id number] #### [facility] [address] [place], [place] [address]Uqhf Absolute0.5 E9/LNormal0.2-1.0[facility] Comment on above:Performed By: #### [id number] #### [facility] [address] [place], [place] [address]Gafmmghva/100 WBC (Bld)7.5 %Normal4.0-14.0[facility] HospitalComment on above:Performed By: #### [id number] #### [facility] [address] [place], [place] [address]Kklunq Absolute3.9 E9/LNormal2.0-7.5FAvita Health System Bucyrus Hospital Comment on above:Performed By: #### [id number] #### [facility] [address] [place], [place] [address]Xcpbgq Auto60.7 %Nftair33.0-75.0[facility] Comment on above:Performed By: #### [id number] #### [facility] [address] [place], [place] [address]Ystjqflk841.0 E9/LPfgfwo307.0-500.0[facility] Comment on above:Performed By: #### [id number] #### [facility] [address] [place], [place] [address]Roanvdch mean volume (Bld) [Entitic vol]7.4 fLNormal6.4-10.8 [facility] HospitalComment on above:Performed By: #### [id number] #### [facility] [address] [place], [place] [address]XHZ2.3 E12/LNormal4.3-5.9[facility] HospitalComment on above:Performed By: #### [id number] #### [facility] [address] [place], [place] [address]NJW5.5 E9/LNormal4.0-11.0[facility] HospitalComment on above:Performed By: #### [id number] #### [facility] [address] [place], [place] [address]UIQRLTSHKPbjozqu By: SYSTEM SYSTEM on 66-52-7389Kemhhyh [Mass/Vol]4.3 g/dLNormal3.3 - 5.0 gm/dLRemisol ChemAlbumin/Globulin [Mass ratio] 1.7 {ratio}Normal1.1 - 2.2Remisol ChemALP [Catalytic activity/Vol]121 [iU]/dHigh 21 - 98 Int._Unit/LRemisol ChemALT No additional P-5'-P [Catalytic activity/Vol] 12 [iU]/dNormal6 - 46 Int._Unit/LRemisol ChemAnion gap [Moles/Vol]10 mmol/L Normal6 - 16 mEq/LRemisol ChemAST [Catalytic activity/Vol]14 [iU]/dNormal5 - 43 Int._Unit/LRemisol ChemBilirubin [Mass/Vol]0.3 mg/dLNormal0.0 - 1.1 mg/dLRemisol ChemCalcium [Mass/Vol]9.3 mg/dLNormal8.9 - 11.1 mg/dLRemisol ChemChloride [Moles/Vol]107 mmol/TNjsabe894 - 111 mmol/LRemisol ChemCO2 [Moles/Vol]26 mmol/L Dedemx51 - 31 mmol/LRemisol ChemCreatinine [Mass/Vol]1.2 mg/dLNormal0.5 - 1.3 mg/dLRemisol ChemGFR/1.73 sq M.predicted MDRD (S/P/Bld) [Vol rate/Area]54 mL/min/1.73 m2Low>=59mL/min/1.73 e4Xnvikaf ChemGlobulin (S) [Mass/Vol]2.6 g/dL Normal1.4 - 4.0 gm/dLRemisol ChemGlucose [Mass/Vol]114 mg/oLFdnvjz14 - 199 mg/dL Remisol ChemLipase [Catalytic activity/Vol]28 U/VApwayb36 - 58 unit/LRemisol ChemPotassium [Moles/Vol]4.1 mmol/LNormal3.5 - 5.3 mmol/LRemisol ChemProtein [Mass/Vol]6.9 g/dLNormal6.0 - 7.8 gm/dLRemisol ChemSodium [Moles/Vol]139 mmol/L Stzddn222 - 145 mmol/LRemisol ChemUrea nitrogen [Mass/Vol]21 mg/dLNormal5 - 21 mg/dLRemisol ChemUrea nitrogen/Creatinine [Mass ratio]18 mg/deSfhjun41 - 20 Remisol ChemCMPon 98-46-9410Nnbnsgo [Mass/Vol]4.3 g/dLNormal3.3-5.0[facility] HospitalComment on above:Performed By: #### [id number] #### [facility] [address] [place], [place] [address]Quxzyvn/Globulin [Mass ratio]1.7 {ratio}Normal1.1-2.2FAvita Health System Bucyrus HospitalComment on above:Performed By: #### [id number] #### [facility] [address] [place], [place] [address]Szx Ccgf127 Int._Unit/IVpxd78-29XjfbtcTwin City Hospital Comment on above:Performed By: #### [id number] #### [facility] [address] [place], [place] [address]UCG98 Int._Unit/LNormal6-46[facility] HospitalComment on above:Performed By: #### [id number] #### [facility] [address] [place], [place] [address]Ygdsr gap [Moles/Vol]10 mmol/LNormal6-16[facility] HospitalComment on above:Performed By: #### [id number] #### [facility] [address] [place], [place] [address] Int._Unit/LNormal5-43[facility] HospitalComment on above:Performed By: #### [id number] #### [facility] [address] [place], [place] [address]Sgqb Total0.3 mg/dLNormal0.0-1.1FAvita Health System Bucy[facility] Hospital Comment on above:Performed By: #### [id number] #### [facility] [address] [place], [place] [address]VVX/Creat Ratio18 No YqyvuVtstwd40-61GrylfyTwin City HospitalComment on above:Performed By: #### [id number] #### [facility] [address] [place], [place] [address]Gajkgaw [Mass/Vol]9.3 mg/dLNormal8.9-11.1FAvita Health System Bucyrus HospitalComment on above:Performed By: #### [id number] #### [facility] [address] [place], [place] [address]Qcujtmyl [Moles/Vol]107 mmol/VAhbanr600-505NghkwkTwin City HospitalComment on above:Performed By: #### [id number] #### [facility] [address] [place], [place] [address]LN5 [Moles/Vol]26 mmol/TUlnyhn28-65QfpvkeTwin City Hospital Comment on above:Performed By: #### [id number] #### [facility] [address] [place], [place] [address]Wdynbeyzed [Mass/Vol]1.2 mg/dLNormal0.5-1.3FAvita Health System Bucyrus HospitalComment on above:Performed By: #### [id number] #### [facility] [address] [place], [place] [address]Fgllqyih (S) [Mass/Vol]2.6 g/dLNormal1.4-4.0Twin City HospitalComment on above:Performed By: #### [id number] #### [facility] [address], [place] [address]Oandfqm [Mass/Vol]114 mg/dDBakbhy49-126CgodjaTwin City HospitalComment on above:Performed By: #### [id number] #### [facility] [address], [place] [address]Nlptntxyw [Moles/Vol]4.1 mmol/LNormal3.5-5.3FAvita Health System Bucyrus HospitalComment on above:Performed By: #### [id number] #### [facility] [address], [place] [address]Qgnkpkp [Mass/Vol]6.9 g/dLNormal6.0-7.8Twin City HospitalComment on above:Performed By: #### [id number] #### [facility] [address], [place] [address]Ahxcpr [Moles/Vol]139 mmol/KBoaoaz002-787GjxldfTwin City HospitalComment on above:Performed By: #### [id number] #### [facility] [address], [place] [address]Vhsp nitrogen [Mass/Vol]21 mg/dLNormal5-21T[facility] City HospitalComment on above:Performed By: #### [id number] #### [facility] [address], [place] [address]QB Clinical Summaryon [id number] Clinical SummaryED Clinical Summary [address] [address] ED Clinical Summary Person Information Name: CONSTANTINO CARDOSO [facility] Age: 54 Years : 1970 Sex: Female Language: Kuwaiti PCP: JUDI YOUSSEF CNP Marital Status: Phone: [phone] MRN: Visit Id: Visit Reason: Nausea; Abdominal [...] 21:01:59 02/16/2025 21:01:59 02/16/2025 21:01:59 ADDRESS: [address] [facility] [phone] PHYS DOC NOTES: MEDICAL INFORMATION: Prescriptions Given: New Medications [facility]/pharmacy #[id number], [address], [place] [id number], [phone] ondansetron (ondansetron 4 mg Dis Tab) 1 [...] Instructions: Follow up: With: Address: When: Rambo Amaral [facility], [address], [address] [address] [phone] Business (1) In 3 days 02/19/2025 With: Address: When: JUDI YOUSSEF [address] [facility] [phone] Business (1) In 3 days DIAGNOSIS: Dysphagia; GastritisNormalFisher Robertson Medical CenterED Note-Physicianon [id number] Note-PhysicianED Note-Physician Basic Information Time Seen: Prosper Bergman [...] day(s), # 10 tab(s), Refills(s) 0, Pharmacy: [facility]/pharmacy #[id number], 170.2, cm, 02/16/25 18:59:00 EDT, Height/Length Dosing, 85.2, kg, 02/16/25 18:59:00 EDT,Weight Dosing pantoprazole, 40 mg = 10 mL, Injection, IV Push, Once, Stop date 02/16/25 19:01:00 EDT, STAT, Startdate 02/16/25 19:01:00 EDT, 02/16/25 19:01:00 EDT promethazine 25 mg + Sodium Chloride 0.9% intravenous solution 50 mL, IV Piggyback, Once, Stop date02/16/25 20:04:00 EDT, STAT, Start date 02/16/25 20:04:00 EDT, 153 mL/hr, Infuse over 20 minute(s),02/16/25 20:04:00 EDT Sodium Chloride 0.9% intravenous solution 1,000 mL, 1,000 mL, IV, 1,000 mL/hr, STAT, Start date 02/16/25 19:01:00 EDT, 1 hour(s), Total volume (mL): 1,000, 85.2 kg, 2.01, m2 sucralfate, 1 gram = 10 mL, Oral, QID, # 280 mL, Refills(s) 0, Pharmacy: [facility]/pharmacy #[id number], 170.2,cm, 02/16/25 18:59:00 EDT, Height/Length Dosing, 85.2, kg, [...] Oral, q6hr Follow-up With When Contact Information Ricksgabriel Purcell In 3 days 02/19/2025 EDT [address] [facility], [address] [phone] Business (1) Additional Instructions: JUDI YOUSSEF In 3 days [address] [place] [phone] Business (1) Additional Instructions: Problem List/Past Medical History Ongoing Acid reflux Arthritis Asymptomatic microscopic hematuria 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 CenterComment on above: Result Comment: Electronically Signed By: Prosper Bergman DO\.br\Date and Time Signed: 02/16/25 20:43EDTED Patient Education Noteon [id number] Patient Education NoteED Patient Education NoteNoWood County Hospital CenterED Patient Summaryon [id number] Patient SummaryED Patient Summary [facility] [address] [place], [place] [address] Patient Discharge Instructions Person Information Name: CONSTANTINO CARDOSO Age: 54 Years Arrival Date: 02/16/2025 18:52:26 Discharge Diagnosis: Dysphagia; Gastritis Primary Care Physician: JUDI YOUSSEF CNP Provider Information Primary Provider: Prosper Bergman DO Advanced Certified Caregiver:None The exam and treatment you received in the Emergency Department were for an urgent problem and are not intended as complete care. It is important that you follow up with a doctor, nurse practitioner,or physician???s nurse's assistant for ongoing care. If your symptoms become worse or you do not improve asexpected and you are unable to reach your usual health care provider, you should return to the Emergency Department. We are available 24 hours a day. CONSTANTINO CARDOSO has been given the following list of patient education materials, prescriptions and follow-up instructions: Follow-up Instructions: With: Address: When: Rambo Purcell [address] [facility], [address], [place]re[place] [address] [address] [phone] Business (1) In 3 days 02/19/2025 With: Address: When: JUDI YOUSSEF [address] [place] [phone] Business (1) In 3 days In the event that this physician does not participate in your insurance network, please consult with your insurance company to find a nearby participating provider. Patient Education Materials: A MESSAGE TO ALL PATIENTS REGARDING OPIOIDS PRESCRIPTION OPIOIDS: WHAT YOU NEED TO KNOW Prescription opioids can be used to help relieve bzhpnszj-ud-scuklc pain and are often prescribed following a [...] guidance from the Food and Drug Administration (www.fda.gov/Drugs/ResourcesForYou). ??? Visit www.cdc.gov/drugoverdose to learn about the risks of opioids abuse and overdose. ? (more content not included)...[facility]'s Medical CenterExtra Betina 29-49-1975Epgw Collected PlasmaYesInvalid Interpretation [facility] Doctors HospitalComment on above:Performed By: #### [id number] ####[facility] [address] [place], [place] [address]PRDRLEOGSQMoifyee By: SYSTEM SYSTEM on 35-93-8503Ggryjnpvc/100 WBC (Bld)0.6 %Normal0.0 - 2.0 %Remisol HemeBasophils/Leukocytes Auto (Bld) [Pure # fraction]0.0 E9/LNormal0.0 - 0.2 E9/LRemisol HemeEosinophils (Bld) [#/Vol]0.3 E9/LNormal0.0 - 0.5 E9/LRemisol HemeEosinophils/100 WBC (Bld)5.2 %Normal0.0 - 8.0 %Remisol HemeErythrocyte distribution width (RBC) [Ratio]13.5 %Nqwhyv19.9 - 14.2 %Remisol HemeHematocrit (Bld) [Volume fraction]37.7 %Vzcvsn81.0 - 46.0 %Remisol HemeHemoglobin (Bld) [Mass/Vol]12.6 g/cFTvkplv05.0 - 16.0 gm/dLRemisol HemeLymphocytes (Bld) [#/Vol] 1.7 E9/LNormal1.0 - 4.0 E9/LRemisol HemeLymphocytes/100 WBC (Bld)26.0 %Normal 14.0 - 50.0 %Remisol HemeMCH (RBC) [Entitic mass]29.0 hsKkmzey91.0 - 34.0 pg Remisol HemeMCHC (RBC) [Mass/Vol]33.5 g/nMOlpefg49.4 - 36.0 gm/dLRemisol HemeMCV (RBC) [Entitic vol]86.7 hXLmwjlc33.0 - 100.0 fLRemisol HemeMonocytes (Bld) [#/Vol]0.5 E9/LNormal0.2 - 1.0 E9/LRemisol HemeMonocytes/100 WBC (Bld)7.5 % Normal4.0 - 14.0 %Remisol HemeNeutrophils (Bld) [#/Vol]3.9 E9/LNormal2.0 - 7.5 E9/LRemisol HemeNeutrophils/100 WBC (Bld)60.7 %Glcflm02.0 - 75.0 %Remisol Heme Platelet mean volume (Bld) [Entitic vol]7.4 fLNormal6.4 - 10.8 fLRemisol Heme Platelets (Bld) [#/Vol]357.0 E9/YFuwveu787.0 - 500.0 E9/LRemisol HemeRBC (Bld) [#/Vol]4.3 E12/LNormal4.3 - 5.9 E12/LRemisol HemeWBC corrected for nucl RBC Auto (Bld) [#/Vol]6.5 E9/LNormal4.0 - 11.0 E9/LRemisol HemeLipase Levelon 02-16-2025 Lipase Lvl28 unit/GVdoior43-06OylkxdTwin City HospitalComment on above: Performed By: #### [id number] #### [facility] [address], [place] [address]qEQOhb 95-97-9787uWPS49 mL/min/1.73 m2Low>=59Twin City HospitalComment on above:Performed By: #### [id number] #### [facility] [address], [place] [address] [id number] stress test result from 01/18/2025: MD Ros Suarez MA Please inform the patient that her stress test is normal. Encourage exercise. Attempted to call patient but mailbox is full and is not accepting messages. NormalUnBarberton Citizens HospitalOrders Onlyon [id number] Only [id number] Constantino Cardoso 1970 F Date Provider Department Center 01/11/2025 [facility] CARD [facility] HeartVAS Family History Problem Relation Age of Onset Heart attack Father Coronary artery disease Brother Family Status - Relation Status Age at Mother Alive Father Sister Alive Brother DeceasedNormalUniversThe University of Toledo Medical CenterOffice Visiton [id number]-up [id number] Constantino Cardoso 1970 F Date Provider Department Center 12/28/2024 [facility] Amirah Hos Family History Problem Relation Age of Onset Heart attack Father Coronary artery disease Brother Family Status - Relation Status Age at Mother Alive Father Sister Alive Brother Level of Service:28183 AR OFFICE/OUTPATIENT ESTABLISHED MOD MDM 30 MIN Reason for Visit and Comments: Hypertension [488195] Follow up from [facility] ER [Other][facility]36on attempts made to contact patient, unable to leave a message, patient has an appointment on 12/28/2024.[facility]36on [id number]'s note from the ER, Labs and CT of the chest and Abd are in media center specialist for you to review.[facility] HospitalUrine Cultureon 58-46-2003Rhyjsmpe identified Cx Nom (U)ORGANISM: Strep agalactiae - (group b) (O:STRAGA) Ernest Count 15,000 * This is a corrected result. * A prior result that was reported as final has been changed. 15,000 colonies/ml Mixed Bacterial Skin Contaminants 1 Day removed from report on 12/20/24 PERFORMED BY: [facility] [address] [place] [address] PATHOLOGIST SELECT BANKER JAMES COTA M.D.[facility] Physician GroupComment on above: Performed By: #### CUU ####[facility] [address] [place] [address] USAUrine cultureOrdered By: Nicanor Perez on 12-18-2024 Bacteria identified Cx Nom (U)Strep agalactiae - (group b)AbnormalAdena Fayette Medical CenterPatient Letter FTon [id number] Letter [facility] [place] [facility] December 13, 2024 CONSTANTINO CARDOSO [address] [place] [address] : 1970 Dear Constantino, This is a reminder that you are due for an appointment with [facility]. Please contact our office at [phone] to schedule an appointment at your earliest convenience. Thank you, [facility] HospitalNormalFishnoemi R [facility] Trauma CenterLab Miscellaneous-LCon 39-88-7592Auq MiscellaneousCOMMENTInvalid Interpretation Code Twin City HospitalComment on above:Result Comment: Test Ordered: [id number] Venous Thromb. Patients on VKA Homocysteine 9.5 [...] developed and its performance characteristics determined by [employer]. It has not been cleared or approved by the Food and Drug Administration. Factor VII Antigen 172 % UY Reference Range: 7 months and older: 60 - 175 Results of this test are for research purposes only per the assay counter installer. The performance characteristics of this assay have not been established. The result should not be used as a diagnostic procedure without confirmation of the diagnosis by another medically established diagnostic product or procedure. Protein C Ag/FVII Ag Ratio 0.7 ratio UY Reference Range: 0.5 - 2.2 Results of this test are for research purposes only per the assay counter installer. The performance characteristics of this assay have not been established. The result should not be used as a diagnostic procedure without confirmation of the diagnosis by another medically established diagnostic product or procedure. Protein S Ag/FVII Ag Ratio 0.5 ratio UY Reference Range: 0.5 - 2.2 Results of this test are for research purposes only per the assay counter installer. The performance characteristics of this assay have [...] and older: 22.9 - 30.2 APTT 1:1 TECHNICAL PROJECT COORDINATOR NIY sec UY Testing Not Indicated This test was developed and its performance characteristics determined by [employer]. It has not been cleared or approved by the [place] Food and Drug Administration. APTT 1:1 Saline NIY sec UY Testing Not Indicated This test was developed and its performance characteristics determined by [employer]. It has not been cleared or approved by the [place] Food and Drug Administration. LAC Interpretation Comment UY A lupus anticoagulant is not detected. All antiphospholipid antibodies evaluated are normal. As antibody titers may fluctuate with time, repeat testing may be indicated. Please contact [facility] if further clarification is needed. DRVVT [...] Result Comment UGurpreet G-G (Normal-Normal) No prothrombin [id number] mutation present. Interpretation: Comment UY While the patient does not possess this risk factor, other thrombotic risk factors may be detected through systematic clinical laboratory analysis. Methodology: Comment UY Patient DNA was evaluated for the factor II gene mutation at n (more content not included)...Performed By: #### [id number] #### [facility] [address] [place] [address]JRLmd [id number] This is a routine electroencephalogram performed on a 54-year-old female using standard 10/20 lead placement and a [employer] system. All data were obtained digitally and are available for reformatting and remontage. There is a posterior dominant rhythm in the 9-10 hertz alpha range and 20-30 microvolt amplitude range recorded in the occipital leads symmetrically during restful wakefulness. This rhythm attenuateswith eye opening. There is beta activity in the 15-20 hertz range and less than 20 microvolt amplitude range recorded in the frontocentral regions intermittently and symmetrically throughout the record. There is attenuation of the background rhythm, rolling eye movements, attenuation of muscle artifact, and generalized slowing, consistent with stage I sleep which occurred in approximately 20% of therecord. There are no abnormal waveforms recorded with photic stimulation performed at multiple frequencies.There are no abnormal waveforms recorded with adequate hyperventilation. There is intermittent slow generalized activity in the 1-4 hertz delta range and 30-60 microvolt amplitude range recorded in a generalized pattern with intermixed beta activity in the 4-6 hertz rangeand 20-40 microvolt amplitude range recorded frequently during the record. There is one left frontal sharp wave recorded during the record associated with the generalized slowing. There is no epileptiform activity recorded during the record. There are no seizures recorded duringthe record. There is no abnormal slowing recorded during the record. 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 Clinicalcorrelation is recommended. Rush Padilla M.D. ca Dictated: 10/20/2024 [id number] Typed: 10/21/2024St. [facility]'s Medical CenterComment on above:Result Comment: Electronically Signed By: Randy BAKER, Rush\.br\Date and Time Signed: 10/28/24 07:30 ESTBMPon 55-47-1001Tdkjg gap [Moles/Vol]9 mmol/LNormal6-16Twin City HospitalComment on above:Performed By: #### [id number] #### [facility] [address], [place] [address]Arrpwiq [Mass/Vol]8.4 mg/dLLow8.9-11.1FAvita Health System Bucyrus HospitalComment on above:Performed By: #### [id number] #### [facility] [address], [place] [address]Cbdbhvme [Moles/Vol]112 mmol/ZJcnd674-981UzygekTwin City HospitalComment on above:Performed By: #### [id number] #### [facility] [address], [place] [address]SP1 [Moles/Vol]25 mmol/UYxuwjt08-07JysgmpTwin City Hospital Comment on above:Performed By: #### [id number] #### [facility] [address], [place] [address]Rxqqeqiitz [Mass/Vol]0.6 mg/dLNormal0.5-1.3FAvita Health System Bucyrus HospitalComment on above:Performed By: #### [id number] #### [facility] [address], [place] [address]Ssdehfd [Mass/Vol]107 mg/eJZkfisg91-646OcatzqTwin City HospitalComment on above:Performed By: #### [id number] #### [facility] [address], [place] [address]Sibczbkmt [Moles/Vol]4.1 mmol/LNormal3.5-5.3FAvita Health System Bucyrus HospitalComment on above:Performed By: #### [id number] #### [facility] [address] [place] [address]Erfsfb [Moles/Vol]142 mmol/JLmkvxn118-088CrvkbrTwin City HospitalComment on above:Performed By: #### [id number] #### [facility] [address] [place] [address]Ijld nitrogen [Mass/Vol]23 mg/dLHigh5-21T[facility] City HospitalComment on above:Performed By: #### [id number] #### [facility] [address] [place] [address]Yfza nitrogen/Creatinine [Mass ratio]38 No JfziwLcns06-32RlzcuyTwin City HospitalComment on above:Performed By: #### [id number] #### [facility] [address] [place] [address]LMX w/ Auto Diffon 48-31-0532Jkrnaupkl/100 WBC (Bld)0.7 %Normal 0.0-2.0Twin City HospitalComment on above:Performed By: #### [id number] #### [facility] [address] [place] [address]Qrwzfdkzv/Leukocytes Auto (Bld) [Pure # fraction]0.0 E9/LNormal 0.0-0.2FAvita Health System Bucyrus HospitalComment on above:Performed By: #### [id number] #### [facility] [address] [place] [address]Znhklimuytp (Bld) [#/Vol]0.2 E9/LNormal0.0-0.5FAvita Health System Bucyrus HospitalComment on above:Performed By: #### [id number] #### [facility] [address] [place] [address]Ixmyqrfptue/100 WBC (Bld)4.9 %Normal0.0-8.0Twin City HospitalComment on above:Performed By: #### [id number] #### [facility] [address], [place] [address]Lazzrtrcukk distribution width (RBC) [Ratio]14.2 %Normal 10.9-14.2FAvita Health System Bucyrus HospitalComment on above:Performed By: #### [id number] #### [facility] [address] [place] [address]Jqnugbmbgb (Bld) [Volume fraction]32.4 %Low34.0-46.0T[facility] City HospitalComment on above:Performed By: #### [id number] #### [facility] [address] [place] [address]Ynpzqqiuqj (Bld) [Mass/Vol]11.0 g/dLLow12.0-16.0T[facility] City HospitalComment on above:Performed By: #### [id number] #### [facility] [address] [place] [address]Boqmpjzebyf (Bld) [#/Vol]1.5 E9/LNormal1.0-4.0T[facility] City HospitalComment on above:Performed By: #### [id number] #### [facility] [address] [place] [address]Mcnicrzdouv/100 WBC (Bld)32.6 %Skhyss71.0-50.0T[facility] City HospitalComment on above:Performed By: #### [id number] #### [facility] [address] [place] [address]QCL (RBC) [Entitic mass]30.1 cwAlfvlr41.0-34.0T[facility] City HospitalComment on above:Performed By: #### [id number] #### [facility] [address] [place] [address]PTAH (RBC) [Mass/Vol]33.9 g/eLBraiez58.4-36.0T[facility] City HospitalComment on above:Performed By: #### [id number] #### [facility] [address] [place] [address]MZC (RBC) [Entitic vol]89.0 jWFjksnl73.0-100.0T[facility] City HospitalComment on above:Performed By: #### [id number] #### [facility] [address] [place] [address]Qacokwaue (Bld) [#/Vol]0.4 E9/LNormal0.2-1.0T[facility] City HospitalComment on above:Performed By: #### [id number] #### [facility] [address] [place] [address]Ereagmgcfyw (Bld) [#/Vol]2.5 E9/LNormal2.0-7.5FAvita Health System Bucyrus HospitalComment on above:Performed By: #### [id number] #### [facility] [address] [place] [address]Biahufapnpz/100 WBC (Bld)53.5 %Rrzaen92.0-75.0T[facility] City HospitalComment on above:Performed By: #### [id number] #### [facility] [address] [place] [address]Jsottsaa258.0 E9/ZEpedwp533.0-500.0[facility] Comment on above:Performed By: #### [id number] #### [facility] [address] [place] [address]Bmlvjzzo mean volume (Bld) [Entitic vol]7.1 fLNormal6.4-10.8 [facility] City HospitalComment on above:Performed By: #### [id number] #### [facility] [address] [place] [address]GWN (Bld) [#/Vol]3.6 E12/LLow4.3-5.9[facility] Comment on above:Performed By: #### [id number] #### [facility] [address] [place] [address]YNU corrected for nucl RBC Auto (Bld) [#/Vol]4.6 E9/LNormal 4.0-11.0T[facility] City HospitalComment on above:Performed By: #### [id number] #### [facility] [address] [place], [place] [address]WGUGSINRBNdqtcts By: Lab Uriah on 56-73-2206Tvpelbr [Mass/Vol]115 mg/kMCdpg25 - 99 mg/dLMER[facility] [place] POC SubsectionComment on above:Result Comment: Notified RN/MDPOC UsernameVGABY KAHNnvalid Interpretation Code FT POC SubsectionSodium [Moles/Vol][id number] mmol/LInvalid Interpretation CodeFT POC SubsectionSodium [Moles/Vol]319182231 mmol/LInvalid Interpretation CodeFT POC SubsectionGlucose [Mass/Vol]93 mg/oWHpwsxy54 - 99 mg/dLFT POC SubsectionComment on above:Result Comment: Notified RN/MDPOC UsernameVMARYMAR, GILMARNAHInvalid Interpretation CodeFT POC SubsectionSodium [Moles/Vol] [id number] mmol/LInvalid Interpretation CodeFT POC SubsectionSodium [Moles/Vol]825084137 mmol/LInvalid Interpretation CodeFT POC Subsection CHEMISTRYOrdered By: SYSTEM SYSTEM on 950716-aqkzdbrzynldja D3 [Mass/Vol] 12.7 ng/mLLow30.0 - 100.0 ng/mLRemisol ChemAnion gap [Moles/Vol]9 mmol/LNormal6 - 16 mEq/LRemisol ChemCalcium [Mass/Vol]8.4 mg/dLLow8.9 - 11.1 mg/dLRemisol Chem Chloride [Moles/Vol]112 mmol/FByzx360 - 111 mmol/LRemisol ChemCholesterol [Mass/Vol]179 mg/zWYdyuuf012 - 200 mg/dLRemisol ChemCholesterol in HDL [Mass/Vol]52 mg/dLInvalid Interpretation CodeRemisol ChemComment on above:Result Comment: '>= 60 LOW RISK' '<= 40 HIGH RISK'Cholesterol in LDL [Mass/Vol]105 mg/dLNormal<=129mg/dLRemisol ChemCholesterol in VLDL [Mass/Vol]25 mg/dLNormal7 - 40 mg/dLRemisol ChemCO2 [Moles/Vol]25 mmol/VRvqprb53 - 31 mmol/LRemisol ChemCreatinine [Mass/Vol]0.6 mg/dLNormal0.5 - 1.3 mg/dLRemisol NtykcIRU252 mL/min/1.73 v6Rucrlg >=59mL/min/1.73 h3Gprzmpj ChemGlucose [Mass/Vol]107 mg/qPJpyjuo16 - 199 mg/dL Remisol ChemPotassium [Moles/Vol]4.1 mmol/LNormal3.5 - 5.3 mmol/LRemisol Chem Sodium [Moles/Vol]142 mmol/TYyswfd360 - 145 mmol/LRemisol ChemTriglyceride [Mass/Vol]127 mg/dLNormal<=149mg/dLRemisol ChemUrea nitrogen [Mass/Vol]23 mg/dL High5 - 21 mg/dLRemisol ChemUrea nitrogen/Creatinine [Mass ratio]38 mg/rdYwrj89 - 20Remisol ChemAmphetamines Screen method >1000 ng/mL Ql (U)NEGATIVE 7 (10/20/24 12:51 AM)NormalNEGATIVERemisol ChemComment on above:Interpretive Data: Negative Cutoff: <1000 ng/mLBarbiturates Screen Ql (U)NEGATIVE 8 (10/20/24 12:51 AM)NormalNEGATIVERemisol ChemComment on above:Interpretive Data: Negative Cutoff: <200 ng/mLBenzodiazepines Ql (U)NEGATIVE 1 (10/20/24 12:51 AM)NormalNEGATIVERemisol ChemComment on above:Interpretive Data: Negative Cutoff: <200 ng/mLCannabinoids Screen Ql (U)NEGATIVE 6 (10/20/24 12:51 AM)NormalNEGATIVERemisol ChemComment on above:Interpretive Data: Negative Cutoff: <50 ng/mLCocaine Ql (U)NEGATIVE 2 (10/20/24 12:51 AM)NormalNEGATIVERemisol ChemComment on above:Interpretive Data: Negative Cutoff: <300 ng/mLOpiates Screen Ql (U)NEGATIVE 4 (10/20/24 12:51 AM)NormalNEGATIVERemisol ChemComment on above:Interpretive Data: Negative Cutoff: <300 ng/mLPhencyclidine Screen method >25 ng/mL Ql (U)NEGATIVE 5 (10/20/24 12:51 AM)NormalNEGATIVERemisol ChemComment on above:Interpretive Data: Negative Cutoff: <25 ng/mL These drug screen results are to be used for medical (i.e., treatment) purposes only. Unconfirmed drug screening results must not be used for non-medical purposes (e.g., employment testing, legal testing).U FentanylNEGATIVE 17 (10/20/24 12:51 AM)NormalNEGATIVERemisol ChemComment on above:Interpretive Data: Negative Cutoff: <5 ng/mL These drug screen results are to be used for medical (i.e., treatment) purposes only. Unconfirmed drug screening results must not be used for non-medical purposes (e.g., employment testing, legal testing).Capillary Glucose POCon 87-88-1831Gaelacr [Mass/Vol]115 mg/lDLbfx71-94ZxjnjsTwin City HospitalComment on above:Result Comment: Notified RN/MDPerformed By: #### [id number] ####[facility] [address] [place], [place] [address]Hwpfgfx [Mass/Vol]93 mg/qRTwydzs56-12GkspqzTwin City HospitalComment on above:Result Comment: Notified RN/MDPerformed By: #### [id number] #### [facility] [address], [place] [address]Xysesiddf Note-Nursingon 32-16-7865Fbcjvlejm Note-Nursing Discharge Note-Nursing CONSTANTINO CARDOSO :1970 Visit [...] (Zofran ODT 4 mg Tab-Dis) Procedure History Esophagogastroduodenoscopy (01/11/2022), Esophagogastroduodenoscopy (05/13/2021), Esophagogastroduodenoscopy [...] to 2 days Where: [address] [place] [address] [phone] Business (1) Follow Up with Randy BAKER, REGINALDO Baker When: Within 2 to 4 weeks [facility] [place] [address]- Medications What How Much When Why Instructions Next Dose New aspirin (aspirin 81 mg Oral EC Tab) 1 Tablets By Mouth Every day Pickup at [facility]/pharmacy #[id number] 10/21/24 9am New cyanocobalamin (cyanocobalamin 1000 mcg Tab) 1 Tablets By Mouth [id number]24 9am New levetiracetam (Keppra 500 mg Tab) 1 Tablets By Mouth 2 times a day Pickup at [facility]/pharmacy #[id number]/20/24 9pm New multivitamin (Multi Vitamins oral tablet) 1 Tablets By Mouth Every day [facility] 10/21/24 9am Changed ergocalciferol (ergocalciferol 50,000 intl units Cap) 1 Capsules By Mouth Every 7 days Duration: 7 Weeks Pickup at [facility]/pharmacy #[id number] 10/27/24 9am Unchanged acarbose [...] weeks, then 2 times weekly for maintenance 259pm Unchanged lisinopril (lisinopril 10 mg Tab) 1 Tablets By Mouth Every day 10/21/24 9am Unchanged metoprolol (metoprolol succinate 50 mg ER Tab) 1 Tablets By Mouth Every day 10/21/24 9am Unchanged sertraline (sertraline 50 mg Tab) 1 Tablets By Mouth Every day 10/21/24 9am Pharmacy Information [facility]/pharmacy #[id number]: [address], [place] [id number] [phone] What How Much When Why Comments Stop [...] 11 gm/dL Low (10/20/24 (more content not included)...[facility] CenterHEMATOLOGYOrdered By: SYSTEM SYSTEM on 17-95-3146Hvruwlbde/100 WBC (Bld)0.7 %Normal0.0 - 2.0 %Remisol HemeBasophils/Leukocytes Auto (Bld) [Pure # fraction]0.0 E9/LNormal0.0 - 0.2 E9/LRemisol HemeEosinophils (Bld) [#/Vol]0.2 E9/LNormal0.0 - 0.5 E9/LRemisol HemeEosinophils/100 WBC (Bld)4.9 %Normal0.0 - 8.0 %Remisol HemeErythrocyte distribution width (RBC) [Ratio]14.2 %Nlscga28.9 - 14.2 %Remisol HemeHematocrit (Bld) [Volume fraction]32.4 %Low34.0 - 46.0 % Remisol HemeHemoglobin (Bld) [Mass/Vol]11.0 g/dLLow12.0 - 16.0 gm/dLRemisol Heme Lymphocytes (Bld) [#/Vol]1.5 E9/LNormal1.0 - 4.0 E9/LRemisol HemeLymphocytes/100 WBC (Bld)32.6 %Jblvdt98.0 - 50.0 %Remisol HemeMCH (RBC) [Entitic mass]30.1 pg Gyoymk04.0 - 34.0 pgRemisol HemeMCHC (RBC) [Mass/Vol]33.9 g/bUItpjyv48.4 - 36.0 gm/dLRemisol HemeMCV (RBC) [Entitic vol]89.0 oVQielec96.0 - 100.0 fLRemisol Heme Monocytes (Bld) [#/Vol]0.4 E9/LNormal0.2 - 1.0 E9/LRemisol HemeMonocytes/100 WBC (Bld)8.3 %Normal4.0 - 14.0 %Remisol HemeNeutrophils (Bld) [#/Vol]2.5 E9/LNormal 2.0 - 7.5 E9/LRemisol HemeNeutrophils/100 WBC (Bld)53.5 %Igkdie45.0 - 75.0 % Remisol AupmGbqjleow923.0 E9/WWtfsfh433.0 - 500.0 E9/LRemisol HemePlatelet mean volume (Bld) [Entitic vol]7.1 fLNormal6.4 - 10.8 fLRemisol HemeRBC (Bld) [#/Vol] 3.6 E12/LLow4.3 - 5.9 E12/LRemisol HemeWBC corrected for nucl RBC Auto (Bld) [#/Vol]4.6 E9/LNormal4.0 - 11.0 E9/LRemisol HemeInpatient Clinical Summaryon 35-21-3491Blkkxjbjk Clinical SummaryInpatient Clinical Summary [place] [id number] Clinical Summary Person Information: Name: CONSTANTINO CARDOSO Age: 54 Years : 1970 Sex: Female PCP: JUDI YOUSSEF CNP Marital Status: Phone: [phone] Race: White Ethnicity: Non- or Language: Kuwaiti Visit Id: Visit Reason: Facial droop; Headache; Potential stroke; POSS STROKE Speciality: Acuity: Enc Type: Observation Med Service: Medical Arrival: 10/19/2024 17:04:11 Discharge: Dispo Type: Admitted as IP to this Hosp Address: [address] [place] [phone] Provider Notes: Diagnosis: 1:Stroke-like symptoms; 2:Migraine headache; [...] By Mouth every 7 days for 7 Weeks.Refills: 0. estradiol topical (Estrace 0.1 mg/g Cream) [...] Physician: Follow up: With: Address: When: JUDI REGINA [address] [facility] [place] [id number] [phone] Business (1) Within 1 to 2 days With: Address: When: Randy BAKER, [place] [phone] Within 2 to 4 weeks Patient Education Information: Seizure, Adult, Zrgh-cy-Hxpo; Vitamin B12 Deficiency, Pqea-lp-Tvms; Vitamin D Deficiency, Oobz-vx-Kwyy; Vitamin D Test; Migraine Headache, Rcjj-bt-Tllb aspirin 81 mg Oral EC Tab, cyanocobalamin, ergocalciferol 50,000 intl units Cap, multivitaminNormalTwin City HospitalInpatient Clinical Summary Inpatient Clinical Summary [address] [address] Clinical Summary Person Information: Name: CONSTANTINO CARDOSO Age: 54 Years : 1970 Sex: Female PCP: JUDI YOUSSEF CNP Marital Status: Phone: [phone] Race: White Ethnicity: Non- or Language: Kuwaiti Visit Id: Visit Reason: Facial droop; Headache; Potential stroke; POSS STROKE Speciality: Acuity: Enc Type: Observation Med Service: Medical Arrival: 10/19/2024 17:04:11 Discharge: Dispo Type: Admitted as IP to this Hosp Address: [address] [facility] [id number] Provider Notes: Diagnosis: 1:Stroke-like symptoms; 2:Migraine headache; [...] By Mouth every 7 days for 7 Weeks.Refills: 0. estradiol topical (Estrace 0.1 mg/g Cream) [...] With: Address: When: JUDI YOUSSEF [address] [place] [address] [phone] Business (1) Within 1 to 2 days With: Address: When: Rush Padilla MD [facility] [address] [place] [address] Within 2 to 4 weeks Patient Education Information: Vitamin B12 Deficiency, Uurg-is-Craw; Vitamin D Deficiency, Efyi-kl-Kmfg; Vitamin D Test; Migraine Headache, Ebvv-tu-Rmrz aspirin 81 mg Oral EC Tab, cyanocobalamin, ergocalciferol 50,000 intl units Cap, multivitaminNormalTwin City HospitalInpatient Patient Summaryon 06-34-0427Eafrzoyid Patient SummaryInpatient Patient Summary [address] [address] Patient Discharge Instructions PERSON INFORMATION Name: CONSTANTINO CARDOSO Date of : 1970 Current Date: 10/20/2024 15:59:27 PHYSICIANS Admitting Physician: Eliezer Lorenzo DO Primary Care Physician: JUDI YOUSSEF CNP PCP Phone Number: [phone] Comment: Discharge Diagnosis: 1:Stroke-like symptoms; 2:Migraine headache; [...] Address: When: JUDI YOUSSEF [address] [place] [phone] Business (1) Within 1 to 2 days With: Address: When: Randy BAKER, REGINALDO Baker [facility] [address] [place] [address] Within 2 to 4 weeks In the event that this physician does not participate in your insurance network, please consult with your insurance company to find a nearby participating provider. Comment: MAURY Linton COLLEENIA R, have received the attached patient education materials/instructions and haveverbalized understanding: Patient Signature Date Clinican/Nurse Signature Date HERE ARE THE MEDICATION CHANGES THAT OCCURRED DURING YOUR HOSPITAL STAY New Medications [id number], [address], [place] [id number], [phone] aspirin (aspirin 81 mg Oral EC Tab) [...] That Have Changed [facility], [address] [facility] [address] [place] [id number], [phone] START: ergocalciferol (ergocalciferol 50,000 intl units Cap) 1 Capsules By Mouth every 7 days for 7Weeks. Refills: 0. Last Dose: Next Dose: STOP: [...] 25 mg oral tablet) (more content not included)...[facility] CenterInpatient Patient SummaryInpatient Patient Summary [place] [address] Patient Discharge Instructions PERSON INFORMATION Name: CONSTANTINO CARDOSO Date of : 1970 Current Date: 10/20/2024 11:40:03 PHYSICIANS Admitting Physician: Eliezer Lorenzo DO Primary Care Physician: JUDI YOUSSEF CNP PCP Phone Number: [phone] Comment: Discharge Diagnosis: 1:Stroke-like symptoms; 2:Migraine headache; [...] Address: When: JUDI YOUSSEF [address] [place] [phone] Business (1) Within 1 to 2 days With: Address: When: Randy BAKER, REGINALDO Baker [facility] [address] [place] [address] Within 2 to 4 weeks In the event that this physician does not participate in your insurance network, please consult with your insurance company to find a nearby participating provider. Comment: MAURY Linton COLLEENIA R, have received the attached patient education materials/instructions and haveverbalized understanding: Patient Signature Date Clinican/Nurse Signature Date HERE ARE THE MEDICATION CHANGES THAT OCCURRED DURING YOUR HOSPITAL STAY New Medications [id number], [address], [place] [id number], [phone] aspirin (aspirin 81 mg Oral EC Tab) [...] That Have Changed [facility], [address], [place] [phone], [phone] START: ergocalciferol (ergocalciferol 50,000 intl units Cap) 1 Capsules By Mouth every 7 days for 7Weeks. Refills: 0. Last Dose: Next Dose: STOP: [...] Refills: 0. cyanocobalamin (cyanocobalamin (more content not included)...[facility] CenterInterdisciplinary Note - OTon 71-00-3654Fsnnfpcccnibwqkxf Note - OTInterdisciplinary Note - OT OT eval completed. [facility] score 24/24. Pt is completing ADL tasks and mobility in room at MOD I without AD, increased time due to soreness in R ankle from previous slip on ice. No skilled OT needs at this time.[facility] Medical CenterLipid Panelon 52-57-8960Fzdrfizedhr [Mass/Vol]179 mg/dLNormal 120-200Twin City HospitalComment on above:Performed By: #### [id number] #### [facility] [address], [place] [address]Keqjlnywuql in HDL [Mass/Vol]52 mg/dLInvalid Interpretation CodeTwin City HospitalComment on above:Result Comment: '>= 60 LOW RISK' '<= 40 HIGH RISK'Performed By: #### [id number] #### [facility] [address], [place] [address]Oktrfvlpyza in LDL [Mass/Vol]105 mg/dLNormal<=129Twin City HospitalComment on above:Performed By: #### [id number] #### [facility] [address], [place] [address]Tngbpvrgnre in VLDL [Mass/Vol]25 mg/dLNormal7-40T[facility] City HospitalComment on above:Performed By: #### [id number] #### [facility] [address], [place] [address]Sxjzuyjwprlp [Mass/Vol]127 mg/dLNormal<=149T[facility] City HospitalComment on above:Performed By: #### [id number] #### [facility] [address], [place] [address]EML Head w/o Contraston 61-80-7114IRN Head w/o ContrastExam Date/Time: 10/19/2024 22:35 EST Reason for Exam: CVA Report IMPRESSION: PROBABLY NEGATIVE HEAD MRA, NOTED. EXAM: MRA Head w/o Contrast DATE: 10/19/2024 7:13 PM CLINICAL HISTORY: CVA. COMPARISON: Head MRI/MRA 10/19/2024. TECHNIQUE: Three-dimensional ixlf-iq-qsnlmj MRA of the intracranial arterial circulation was [...] Axel Garcia MD Transcribed by: REZA Technologist: [facility] SystemMRA Neck w/o Contraston [id number] Neck w/o ContrastExam Date/Time: 10/19/2024 22:35 EST Reason for Exam: CVA Report IMPRESSION: NEGATIVE NECK MRA. EXAM: MRA Neck w/o Contrast DATE: 10/19/2024 7:13 PM CLINICAL HISTORY: CVA. Technologist Comments: rt side facial droop, slurred speech, headache; symptoms have resolved currently; r/o stroke; no known injury/head trauma COMPARISON: Head MRI/MRA 10/19/2024. TECHNIQUE: 2D and 3D hmpk-xf-voptdo MRA of the neck arterial circulation was [...] Signature): 10/20/2024 12:27 pm Signed by: Axel Garica MD Transcribed by: REZA Technologist: [facility] SystemMRI Brain w/o Contraston 80-87-6555QLP Brain w/o ContrastExam Date/Time: 10/19/2024 22:35 EST Reason for Exam: [...] Axel Garcia MD Transcribed by: REZA Technologist: MarijaTwin City HospitalU Drug Screenon 50-47-9179Ffkatsfmjmwi Screen method >1000 ng/mL Ql (U)NegativeNormal NEGATIVETwin City HospitalComment on above:Result Comment: Negative Cutoff: <1000 ng/mLPerformed By: #### [id number] #### [facility] [address], [place] [address]Qyeyhmelksoc Screen Ql (U)NegativeNormalNEGATIVETwin City HospitalComment on above:Result Comment: Negative Cutoff: <200 ng/mL Performed By: #### [id number] #### [facility] [address], [place] [address]Dqatfsxokzchumb Ql (U)NegativeNormalNEGATIVETwin City HospitalComment on above:Result Comment: Negative Cutoff: <200 ng/mL Performed By: #### [id number] #### [facility] [address], [place] [address]Wvzjglqthznd Screen Ql (U)NegativeNormalNEGATIVETwin City HospitalComment on above:Result Comment: Negative Cutoff: <50 ng/mL Performed By: #### [id number] #### [facility] [address] [place] [address]Vzenrgo Ql (U)NegativeNormalNEGATIVETwin City Hospital Comment on above:Result Comment: Negative Cutoff: <300 ng/mLPerformed By: #### [id number] #### [facility] [address], [place] [address]Qxcwtuq Screen Ql (U)NegativeNormalNEGATIVETwin City HospitalComment on above:Result Comment: Negative Cutoff: <300 ng/mLPerformed By: #### [id number] #### [facility] [address] [place] [address]Dpyxonztemjvm Screen method >25 ng/mL Ql (U)NegativeNormal [facility] CenterComment on above:Result Comment: Negative Cutoff: <25 ng/mL These drug screen results are to be used for medical (i.e., treatment) purposes only. Unconfirmed drug screening results must not be used for non-medical purposes (e.g., employment testing, legal testing).Performed By: #### [id number] #### [facility] [address] [place] [address]L FentanylNegativeNormalNEGMercy Health St. [facility] Comment on above:Result Comment: Negative Cutoff: <5 ng/mL These drug screen results are to be used for medical (i.e., treatment) purposes only. Unconfirmed drug screening results must not be used for non-medical purposes (e.g., employment testing, legal testing).Performed By: #### [id number] #### [facility] [address] [place] [address]CP with Cult Rflxon 99-93-2513Tnvornhjn Ql (U)NegativeNormal NegativeTwin City HospitalComment on above:Performed By: #### [id number] #### [facility] [address] [place] [address]Lohctkv (U)ClearNormalClearTwin City HospitalComment on above:Performed By: #### [id number] #### [facility] [address] [place] [address]Vpfxx (U)YellowNormalYellowTwin City HospitalComment on above:Result Comment: Microscopic readings are only performed on those samples that meet specific criteria set forth by [facility].Performed By: #### [id number] #### [facility] [address], [place] [address]Cskkrvs Ql (U)NegativeNormalNegativeTwin City Hospital Comment on above:Performed By: #### [id number] #### [facility] [address] [place] [address]Ibsamgdvos Auto test strip (U) [Mass/Vol]NegativeNormalNegative [facility] HospitalComment on above:Performed By: #### [id number] #### [facility] [address], [place] [address]Goexjef Auto test strip Ql (U)NegativeNormalNegativeTwin City HospitalComment on above:Performed By: #### [id number] #### [facility] [address] [place] [address]Evspzclsj esterase Auto test strip Ql (U)NegativeNormalNegative [facility] HospitalComment on above:Performed By: #### [id number] #### [facility] [address] [place] [address]Ntwystf Auto test strip Ql (U)NegativeNormalNegativeTwin City HospitalComment on above:Performed By: #### [id number] #### [facility] [address] [place] [address] 27048uR (U)5.5 [pH]Normal5.0-9.0T[facility] City HospitalComment on above:Performed By: #### [id number] #### [facility] [address] [place] [address]Efqsjxt Ql (U)NegativeNormalNegativeT[facility] Hospital Comment on above:Performed By: #### [id number] #### [facility] [address] [place] [address]Spncejlg gravity (U) [Rel density]1.191Lkrynl2.005-1.030T[facility] City HospitalComment on above:Performed By: #### [id number] #### [facility] [address] [place] [address]Enxrgevhiomn (U) [Mass/Vol]NegativeNormalNegativeTwin City HospitalComment on above:Performed By: #### [id number] #### [facility] [address] [place] [address]Jokgjswadw cells.squamous Auto (Urine sed) [#/Area]0-2Invalid Interpretation CodeTwin City HospitalComment on above:Performed By: #### [id number] #### [facility] [address] [place] [address]Gchdc Auto Ql (U)1+ CD:[id number] [facility] CenterComment on above:Performed By: #### [id number] #### [facility] [address] [place] [address]XOQ Ql (U)9-7Ikqzdz7-4Lqyjwf [facility] Trauma CenterComment on above:Performed By: #### [id number] #### [facility] [address] [place] [address]SON Auto (Urine sed) [#/Area]2-4Auuufm6-0Imjgjh [facility] Trauma CenterComment on above:Performed By: #### [id number] #### [facility] [address] [place] [address]JBEHCCQDPTTvavdhx By: Bridgette Acosta on 70-49-2080Ffxdzbgfr Ql (U)NegativeNormalNegativemg/dLFTMC UA Auto SSClarity (U)Clear (10/20/24 12:51 AM)NormalClearFTMC UA Auto SSColor (U)Yellow 3 (10/20/24 12:51 AM)NormalYellowMER[facility] [place] [facility] Auto SSComment on above:Interpretive Data: Microscopic readings are only performed on those samples that meet specific criteria set forth by [facility].Glucose Ql (U) NegativeNormalNegativemg/dLFT UA Auto SSHemoglobin Auto test strip (U) [Mass/Vol]Negative (10/20/24 12:51 AM)NormalNegativeMER[facility] [place] [facility] Auto SSKetones Auto test strip Ql (U) NegativeNormalNegativemg/dLFT UA Auto SSLeukocyte esterase Auto test strip Ql (U)Negative (10/20/24 12:51 AM)NormalNegativeMER[facility] [place] [facility] Auto SSNitrite Auto test strip Ql (U) NegativeNormalNegativemg/dLMERCY HOS[facility] [place] [facility] Auto SSpH (U)5.5 (10/20/24 12:51 AM)Normal5.0 - 9.0[facility] Auto SSProtein Ql (U)NegativeNormal Negativemg/dLMERCY HOS[facility] [place] [facility] Auto SSSpecific gravity (U) [Rel density]1.028 (10/20/24 12:51 AM)Normal1.005 - 1.030[facility] Auto SSUrobilinogen (U) [Mass/Vol] NegativeNormalNegativemg/dLMERCY HOS[facility] [place] [facility] Auto SSURINALYSISOrdered By: SYSTEM SYSTEM on 47-56-0610Ydvnwvdzqy cells.squamous Auto (Urine sed) [#/Area]0-2 graded/HPF Invalid Interpretation CodeMER[facility] [place] [facility]A Auto SSMucus Auto Ql (U)1+ graded/LPFInvalid Interpretation CodeNegativegraded/LPFFNORTHE[facility] [place] [facility] Auto SSRBC Ql (U)0-3 graded/HPF Normal0-3graded/HPFMER[facility] HOS[facility] [place] [facility] Auto SSWBC Auto (Urine sed) [#/Area]0-5 graded/HPF Normal0-5graded/HPFMERCY HOSPITAL [facility] [place] [facility] Auto SSURINALYSISOrdered By: Guerline BEAN on 60-99-8654ZC Spec DescClean Catch (10/20/24 12:51 AM)NormalMERCY HOS[facility]ITAL [facility] [place] [facility]A Auto SSVitamin D 25 Hydroxyon - hydroxyvitamin D3 [Mass/Vol]12.7 ng/mLLow30.0-100.0[facility] Comment on above:Performed By: #### [id number] #### [facility] [address] [place] [address] 05[address]dMODyy 52-55-0780iMKR714 mL/min/1.73 n1Qppyva>=59T[facility] City HospitalComment on above:Performed By: #### [id number] #### [facility] [address] [place] [address] 285[address]UG Draw & Holdon 20-32-5772HJ D&HSample drawn for Blood Ba NormalTwin City HospitalComment on above:Performed By: #### [id number] #### [facility] [address] [place] [address] 859[address]LQJ w/ Auto Diffon 01-34-1793MET size Nom (Bld)NORMALInvalid Interpretation CodeTwin City HospitalComment on above:Performed By: #### [id number] #### [facility] [address] [place] [address] 20343Uilvjdect/100 WBC (Bld)0.6 %Normal0.0-2.0T[facility] City HospitalComment on above:Performed By: #### [id number] #### [facility] [address] [place] [address] 278[address]Qqdtdnypa/Leukocytes Auto (Bld) [Pure # fraction]0.0 E9/LNormal 0.0-0.2[facility] Trauma CenterComment on above:Performed By: #### [id number] #### [facility] [address] [place] [address] 910[address]Icrmgldjnme (Bld) [#/Vol]0.2 E9/LNormal0.0-0.5[facility] Trauma CenterComment on above:Performed By: #### [id number] #### [facility] [address] [place] [address] 17[address]Cmjoezpbedu/100 WBC (Bld)3.9 %Normal0.0-8.0T[facility] City HospitalComment on above:Performed By: #### [id number] #### [facility] [address] [place] [address]Brjgvcrwhti distribution width (RBC) [Ratio]14.1 %Normal 10.9-14.2FAvita Health System Bucyrus HospitalComment on above:Performed By: #### [id number] #### [facility] [address] [place] [address] 544[address]Dlnhwmvvfr (Bld) [Volume fraction]34.6 %Swthmh97.0-46.0T[facility] HospitalComment on above:Performed By: #### [id number] #### [facility] [address] [place] [address] 07[address]Kjpiqzfpyb (Bld) [Mass/Vol]11.9 g/dLLow12.0-16.0[facility] HospitalComment on above:Performed By: #### [id number] #### [facility] [address] [place] [address] 24[address]Xedawohxtct (Bld) [#/Vol]1.8 E9/LNormal1.0-4.0[facility] HospitalComment on above:Performed By: #### [id number] #### [facility] [address] [place] [address] 137[address]Tccyqayogyo/100 WBC (Bld)33.3 %Chmhni27.0-50.0[facility] HospitalComment on above:Performed By: #### [id number] #### [facility] [address] [place] [address] 36945GIV (RBC) [Entitic mass]30.6 uvAcfzur08.0-34.0[facility] HospitalComment on above:Performed By: #### [id number] #### [facility] [address] [place] [address] 597[address]MTGH (RBC) [Mass/Vol]34.2 g/dZHbtyid92.4-36.0[facility] HospitalComment on above:Performed By: #### [id number] #### [facility] [address] [place] [address] 25469JUA (RBC) [Entitic vol]89.5 vCBpilzd15.0-100.0[facility] HospitalComment on above:Performed By: #### [id number] #### [facility] [address] [place] [address] 83746Sxnjvvsrx (Bld) [#/Vol]0.4 E9/LNormal0.2-1.0[facility] HospitalComment on above:Performed By: #### [id number] #### [facility] [address] [place] [address] 30404Mnrhizovygo (Bld) [#/Vol]2.9 E9/LNormal2.0-7.5FAvita Health System Bucyrus HospitalComment on above:Performed By: #### [id number] #### [facility] [address] [place] [address]75[address]Hhsxseyshmv/100 WBC (Bld)55.0 %Fdrfgf47.0-75.0[facility] HospitalComment on above:Performed By: #### [id number] #### [facility] [address] [place] [address] 309[address]Jqtstnst mean volume (Bld) [Entitic vol]7.2 fLNormal6.4-10.8 [facility] HospitalComment on above:Performed By: #### [id number] #### [facility] [address] [place] [address]Qqspvryxl (Bld) [#/Vol]424.0 E9/QJvpbzh605.0-500.0[facility] HospitalComment on above:Performed By: #### [id number] #### [facility] [address] [place] [address] 813[address]LEG (Bld) [#/Vol]3.9 E12/LLow4.3-5.9[facility] Comment on above:Performed By: #### [id number] #### [facility] [address] [place] [address] 75[address]QUM corrected for nucl RBC Auto (Bld) [#/Vol]5.4 E9/LNormal 4.0-11.0[facility] Tra[facility] CenterComment on above:Performed By: #### [id number] #### [facility] [address] [place], [place] [address]PNBXOTNCXYfqswfn By: Lab ROPUser on 05-94-8039Sbgoxik [Mass/Vol]93 mg/pLFmyhgs99 - 99 mg/dLMER[facility] [place] SubsectionComment on above:Result Comment: Notified RN/MDPOC UsernameMLEENAMERYMIREYAKASInvalid Interpretation Code [facility] SubsectionSodium [Moles/Vol]365761912647 mmol/LInvalid Interpretation Code[facility] [place] SubsectionSodium [Moles/Vol]023799409 mmol/LInvalid Interpretation Code[facility] [place] SubsectionCHEMISTRYOrdered By: SYSTEM SYSTEM on 14-61-8425Yootjlo [Mass/Vol]3.9 g/dLNormal3.3 - 5.0 gm/dLRemisol ChemAlbumin/Globulin [Mass ratio] 1.6 {ratio}Normal1.1 - 2.2Remisol ChemALP [Catalytic activity/Vol]120 [iU]/dHigh 21 - 98 Int._Unit/LRemisol ChemALT No additional P-5'-P [Catalytic activity/Vol] 11 [iU]/dNormal6 - 46 Int._Unit/LRemisol ChemAnion gap [Moles/Vol]9 mmol/LNormal 6 - 16 mEq/LRemisol ChemAST [Catalytic activity/Vol]14 [iU]/dNormal5 - 43 Int._Unit/LRemisol ChemBilirubin [Mass/Vol]0.4 mg/dLNormal0.0 - 1.1 mg/dLRemisol ChemCalcium [Mass/Vol]8.9 mg/dLNormal8.9 - 11.1 mg/dLRemisol ChemChloride [Moles/Vol]110 mmol/BHoolxk958 - 111 mmol/LRemisol ChemCO2 [Moles/Vol]24 mmol/L Lbbxjj47 - 31 mmol/LRemisol ChemCobalamin (Vitamin B12) [Mass/Vol]69 pg/mLNormal 50 - 1500 pg/mLRemisol ChemCreatinine [Mass/Vol]0.8 mg/dLNormal0.5 - 1.3 mg/dL Remisol KtuyoYGI32 mL/min/1.73 x5Ucekcd>=59mL/min/1.73 a6Votcxre ChemEthanol Lvl mg/dLNormal<=11mg/dLRemisol ChemFerritin [Mass/Vol]36 ng/oKKtzmuh35 - 307 ng/mL Remisol ChemFolate [Mass/Vol]20.7 ng/mLNormal>=6.7ng/mLRemisol ChemGlobulin (S) [Mass/Vol]2.4 g/dLNormal1.4 - 4.0 gm/dLRemisol ChemGlucose [Mass/Vol]107 mg/dL Qxeqhu32 - 199 mg/dLRemisol ChemIron [Mass/Vol]52 ug/hLSrbrwx94 - 153 mcg/dL Remisol ChemIron binding capacity [Mass/Vol]342 ug/dZZjnslm423 - 400 mcg/dL Remisol NptzUIW408 [iU]/aAwjnqi59 - 218 Int._Unit/LRemisol ChemMagnesium [Mass/Vol]1.9 mg/dLNormal1.3 - 2.4 mg/dLRemisol ChemPotassium [Moles/Vol]3.4 mmol/LLow3.5 - 5.3 mmol/LRemisol ChemProtein [Mass/Vol]6.3 g/dLNormal6.0 - 7.8 gm/dLRemisol ChemSodium [Moles/Vol]140 mmol/XTtands721 - 145 mmol/LRemisol Chem Transferrin [Mass/Vol]244 mg/uDLglfnp190 - 370 mg/dLRemisol ChemTroponin HS10.80 pg/uHGxaxul24.10 - 27.10 pg/mLRemisol ChemComment on above:Interpretive Data: The 95% CI (Confidence Interval) PPV (Positive Predictive Value) for myocardial infarction in females is 38 pg/mL, in males 51 pg/mL. The results should be used in conjunction withclinical conditions of myocardial infarction. (Access High Sensitivity Troponin I Instructions For Use, Guillermo Sae, April 2018)TSH Qn1.53 m[IU]/LNormal0.34 - 5.60 mcIU/mLRemisol ChemUrea nitrogen [Mass/Vol]22 mg/dLHigh5 - 21 mg/dLRemisol ChemUrea nitrogen/Creatinine [Mass ratio]28 mg/veXgwp61 - 20Remisol ChemCHEMISTRYOrdered By: Britta Ortega on 58-96-1010NiL3c (Bld) [Mass fraction]5.7 %Normal<=5.9%[facility] ChemAutoSSCMPon 03-48-7465Redrgfv [Mass/Vol]3.9 g/dLNormal3.3-5.0[facility] Comment on above:Performed By: #### [id number] #### [facility] [address], [place] [address]Kvkmwyp/Globulin (S) [Mass conc ratio]1.9Dgpchp7.1-2.2FAvita Health System Bucyrus HospitalComment on above:Performed By: #### [id number] #### [facility] [address], [place] [address]ZOV [Catalytic activity/Vol]120 Int._Unit/SSojb80-04KmkddqTwin City HospitalComment on above:Performed By: #### [id number] #### [facility] [address], [place] [address]VVY No additional P-5'-P [Catalytic activity/Vol]11 Int._Unit/L Normal6-46[facility] HospitalComment on above:Performed By: #### [id number] #### [facility] [address], [place] [address]Rgfzy gap [Moles/Vol]9 mmol/LNormal6-16[facility] HospitalComment on above:Performed By: #### [id number] #### [facility] [address], [place] [address]QBN [Catalytic activity/Vol]14 Int._Unit/LNormal5-43[facility] HospitalComment on above:Performed By: #### [id number] #### [facility] [address], [place] [address]Hglqphawv [Mass/Vol]0.4 mg/dLNormal0.0-1.1FAvita Health System Bucyrus HospitalComment on above:Performed By: #### [id number] #### [facility] [address], [place] [address]Uxdtgie [Mass/Vol]8.9 mg/dLNormal8.9-11.1FAvita Health System Bucyrus HospitalComment on above:Performed By: #### [id number] #### [facility] [address], [place] [address]Xihuvrlv [Moles/Vol]110 mmol/AJbwilg048-719PbrvziTwin City HospitalComment on above:Performed By: #### [id number] #### [facility] [address], [place] [address]EX4 [Moles/Vol]24 mmol/WHbladc90-46CtqddnTwin City Hospital Comment on above:Performed By: #### [id number] #### [facility] [address], [place] [address]Zwqzyjwfer [Mass/Vol]0.8 mg/dLNormal0.5-1.3FAvita Health System Bucyrus HospitalComment on above:Performed By: #### [id number] #### [facility] [address], [place] [address]Gfzxzzbh (S) [Mass/Vol]2.4 g/dLNormal1.4-4.0[facility] HospitalComment on above:Performed By: #### [id number] #### [facility] [address], [place] [address]Bpnvjuv [Mass/Vol]107 mg/dSVbrmzd94-765LgnzayTwin City HospitalComment on above:Performed By: #### [id number] #### [facility] [address], [place] [address]Pgoxrfron [Moles/Vol]3.4 mmol/LLow3.5-5.3FAvita Health System Bucyrus HospitalComment on above:Performed By: #### [id number] #### [facility] [address], [place] [address]Hajuvqw [Mass/Vol]6.3 g/dLNormal6.0-7.8[facility] HospitalComment on above:Performed By: #### [id number] #### [facility] [address], [place] [address]Nrqwnc [Moles/Vol]140 mmol/LJvzsjp936-943JcjtgiTwin City HospitalComment on above:Performed By: #### [id number] #### [facility] [address], [place] [address]Rxbo nitrogen [Mass/Vol]22 mg/dLHigh5-21[facility] HospitalComment on above:Performed By: #### [id number] #### [facility] [address], [place] [address]Daaq nitrogen/Creatinine [Mass ratio]28 No NronjFwbu27-86YmuazcTwin City HospitalComment on above:Performed By: #### [id number] #### [facility] [address], [place] [address]QLZGFCVXFRHYhivknw By: Rohini Matute on 53-43-7466zTMZ Coag (PPP) [Time]40.8 sHigh25.1 - 36.5 second(s)[facility] Auto CoagComment on above: Interpretive Data: Parameter 15 days - 4 weeks 1 - [...] same coagulation reagent and instrumentation as [facility]. Currently there are no coagulation studies available worldwide for children to 14 days, andno normal ranges. Heparin therapeutic range (represented by Anti-Factor Xa activity of 0.2 - 0.4 U/mL) corresponds to PTT of 56.6 - 109.0 sec.INR Coag (PPP) [Relative time]0.96 {INR}Invalid Interpretation CodeMER[facility] [place] Auto CoagComment on above:Interpretive Data: INR results are specifically intended to assess patients stabilized on long-term Anticoagulation therapy suggested INR s Less Intensive Anticoagulation 2.0 3.0 Conventional Range 3.0 4.5PT Coag (PPP) [Time]10.7 sNormal9.4 - 12.5 second(s) [facility] Auto CoagComment on above:Interpretive Data: 15 days - 4 weeks 1 - [...] same coagulation reagent and instrumentation as [facility] Currently there are no coagulation studies available worldwide for children to 14 days, andno normal ranges.CT Head or Brain w/o Contraston 26-89-0824MM Head or Brain w/o ContrastExam Date/Time: 10/19/2024 17:18 EST Reason for Exam: [...] Juarez Staples MD Transcribed by: REZA Technologist: CMLNormalTwin City HospitalCapillary Glucose POCon 30-19-1080Fkxzfon [Mass/Vol]93 mg/oKWxoodq33-48TqcikqTwin City HospitalComment on above:Result Comment: Notified RN/ABDOULAYEerformed By: #### [id number] #### [facility] [address] [place], [place] [id number] Clinical Summaryon 22-46-8851ZN Clinical SummaryED Clinical Summary [address] [address] ED Clinical Summary Person Information Name: CONSTANTINO CARDOSO [facility] Age: 54 Years : 1970 Sex: Female Language: Kuwaiti PCP: JUDI YOUSSEF CNP Marital Status: Phone: [phone] MRN: Visit Id: Visit Reason: Facial droop; Headache; Potential stroke; POSS STROKE Speciality: Acuity: 2 Enc Type: Observation Med Service: Medical Arrival: 10/19/2024 17:04:11 Discharge: LOS: 000 02:07 Checkin: 10/19/2024 17:04:11 Checkout: 10/19/2024 19:11:15 Dispo Type: Admitted as IP to this [facility] EVENTS: Event Name Event Status Request [...] 10/19/2024 19:11:15 10/19/2024 19:11:15 10/19/2024 19:11:15 ADDRESS: [address] [place] [id number] PHYS DOC NOTES: MEDICAL INFORMATION: Prescriptions Given: Medications to Continue with No Changes Other Medications acetaminophen (Tylenol 325 mg Tab) 1 Tablets By Mouth every 4 hours as needed Pain. albuterol (albuterol HFA 90 mcg/inh MDI) 2 Puffs Inhalation every 4 hours as needed as needed for Shortness of breath or wheezing. APAP/butalbital/caffeine (APAP/butalbital/caffeine 325 mg-50 mg-40 mg Tab) 1 Tablets By Mouth every12 hours as needed as needed for headache. [...] calories; 12:On deep vein (more content not included)...[facility] CenterED Note-Physicianon 19-52-0928EG Note-PhysicianED Note-Physician Basic Information time Seen: Prosper Bergman [...] equal strength and symmetry patient does respond slowlyto commands but does ultimately respond appropriately. Stroke [...] Once, Stop date 10/19/24 18:03:00 EST, STAT, Startdate 10/19/24 18:03:00 EST, 10/19/24 18:03:00 EST ED [...] q12hr, PRN, Not ta (more content not included)...[facility] CenterComment on above:Result Comment: Electronically Signed By: Prosper Bergman DO\.br\Date and Time Signed: 10/19/24 18:09ESTED Patient Education Noteon 40-17-3031HK Patient Education NoteED [facility] NoteNoGrant [facility] Patient Summaryon 64-34-1259WA Patient SummaryED Patient Summary [place] [address] Patient Discharge Instructions Person Information Name: CONSTANTINO CARDOSO Age: 54 Years Arrival Date: 10/19/2024 17:04:11 Discharge Diagnosis: 1:Stroke-like symptoms; 2:Migraine headache; 3:Anemia; 4:Hypokalemia; 5:HTN (hypertension); 6:HLD (hyperlipidemia); 7:Gastroparesis; 8:Acid reflux; 9:Seizure; 10:Osteoarthritis; 11:Obesity due to excess calories; 12:On deep vein thrombosis (DVT) prophylaxis Primary Care Physician: JUDI YOUSSEF CNP Provider Information Primary Provider: Prosper Bergman DO Advanced Certified Caregiver:None The exam and treatment you received in the Emergency Department were for an urgent problem and are not intended as complete care. It is important that you follow up with a doctor, nurse practitioner,or physician???s nurse's assistant for ongoing care. If your symptoms become worse or you do not improve asexpected and you are unable to reach your [...] opioids can be used to help relieve ncwqcplq-bp-pvundq pain and are often prescribed following a [...] guidance from the Food and Drug Administration (www.fda.gov/Drugs/ResourcesForYou). ??? Visit www.cdc.gov/drugoverdose to learn about the risks of opioids abuse and overdose. ??? If you believe you (more content not included)...NormalTwin City HospitalEthanolon 73-87-7399Mcjrlac Lvl<10Normal<=11[facility] Comment on above:Performed By: #### [id number] #### [facility] [address], [place] [address]Dfxyzzjvkv 63-93-9320Guxrlibe [Mass/Vol]36 ng/gIMebucd44-373 [facility] HospitalComment on above:Performed By: #### [id number] #### [facility] [address], [place] [address]Snqhetbl 90-44-0095Fxyswm [Mass/Vol]20.7 ng/mLNormal>=6.7FAvita Health System Bucyrus HospitalComment on above:Performed By: #### [id number] #### [facility] [address], [place] [address]ZSQRISHQHIHiamblj By: SYSTEM SYSTEM on 67-58-7337Nqyyvondf/100 WBC (Bld)0.6 %Normal0.0 - 2.0 %Remisol HemeBasophils/Leukocytes Auto (Bld) [Pure # fraction]0.0 E9/LNormal0.0 - 0.2 E9/LRemisol HemeEosinophils (Bld) [#/Vol]0.2 E9/LNormal0.0 - 0.5 E9/LRemisol HemeEosinophils/100 WBC (Bld)3.9 %Normal0.0 - 8.0 %Remisol HemeErythrocyte distribution width (RBC) [Ratio]14.1 %Vvgpwd97.9 - 14.2 %Remisol HemeHematocrit (Bld) [Volume fraction]34.6 %Tjfami78.0 - 46.0 % Remisol HemeHemoglobin (Bld) [Mass/Vol]11.9 g/dLLow12.0 - 16.0 gm/dLRemisol Heme Lymphocytes (Bld) [#/Vol]1.8 E9/LNormal1.0 - 4.0 E9/LRemisol HemeLymphocytes/100 WBC (Bld)33.3 %Beyvdy69.0 - 50.0 %Remisol HemeMCH (RBC) [Entitic mass]30.6 pg Qyijlz76.0 - 34.0 pgRemisol HemeMCHC (RBC) [Mass/Vol]34.2 g/eXDkncru11.4 - 36.0 gm/dLRemisol HemeMCV (RBC) [Entitic vol]89.5 mQRuxccz35.0 - 100.0 fLRemisol Heme Monocytes (Bld) [#/Vol]0.4 E9/LNormal0.2 - 1.0 E9/LRemisol HemeMonocytes/100 WBC (Bld)7.2 %Normal4.0 - 14.0 %Remisol HemeNeutrophils (Bld) [#/Vol]2.9 E9/LNormal 2.0 - 7.5 E9/LRemisol HemeNeutrophils/100 WBC (Bld)55.0 %Bqjvwr90.0 - 75.0 % Remisol HemePlatelet mean volume (Bld) [Entitic vol]7.2 fLNormal6.4 - 10.8 fL Remisol HemePlatelets (Bld) [#/Vol]424.0 E9/RKkrnlg147.0 - 500.0 E9/LRemisol HemeRBC (Bld) [#/Vol]3.9 E12/LLow4.3 - 5.9 E12/LRemisol HemeRBC size Nom (Bld) NORMAL *NA* (10/19/24 5:06 PM)Invalid Interpretation CodeRemisol HemeReticulocytes/100 RBC (Bld)2.4 %High0.5 - 2.2 %Remisol HemeWBC corrected for nucl RBC Auto (Bld) [#/Vol]5.4 E9/LNormal4.0 - 11.0 E9/LRemisol CdpvCxfX6zmh 28-14-2203PxY4v (Bld) [Mass fraction]5.7 %Normal<=5.9[facility] HospitalComment on above: Performed By: #### [id number] #### [facility] [address], [place] [address]Psqtvl 58-60-2153Sprp [Mass/Vol]52 microgram/bQWfkkrw93-010 [facility] HospitalComment on above:Performed By: #### [id number] #### [facility] [address], [place] [address]YLZoq 52-41-6325KEE976 Int._Unit/NEnxwoe49-734RcxyyfTwin City HospitalComment on above:Performed By: #### [id number] #### [facility] [address], [place] [address]Ssf Miscellaneous-LCon 77-18-1586Gqbb Ibqw617810Trhqdky Interpretation [facility] HospitalComment on above:Performed By: #### [id number] #### [facility] [address], [place] [address]Rsnn NameHypercoag ProfInvalid Interpretation [facility] HospitalComment on above:Performed By: #### [id number] #### [facility] [address], [place] [address]Glotmxfdggq 35-37-1120Wjyrnxotw [Mass/Vol]1.9 mg/dLNormal 1.3-2.4FAvita Health System Bucyrus HospitalComment on above:Performed By: #### [id number] #### [facility] [address], [place] [address]II & PTTon 38-55-4723iMAW Coag (PPP) [Time]40.8 second(s)High 25.1-36.5FAvita Health System Bucyrus HospitalComment on above:Result Comment: Parameter 15 days - 4 weeks 1 - [...] same coagulation reagent and instrumentation as [facility] Currently there are no coagulation studies available worldwide for children to 14 days, andno normal ranges. Heparin therapeutic range (represented by Anti-Factor Xa activity of 0.2 - 0.4 U/mL) corresponds to PTT of 56.6 - 109.0 sec.Performed By: #### [id number] #### [facility] [address], [place] [address]JMX Coag (PPP) [Relative time]0.96 {INR}Invalid Interpretation [facility] HospitalComment on above:Result Comment: INR results are specifically intended to assess patients stabilized on long-term Anticoagulation therapy suggested INR???s ???Less Intensive Anticoagulation??? 2.0 ??? 3.0 Conventional Range 3.0 ??? 4.5Performed By: #### [id number] #### [facility] [address], [place] [address]KX Coag (PPP) [Time]10.7 second(s)Normal9.4-12.5FAvita Health System Bucyrus HospitalComment on above:Result Comment: 15 days - 4 weeks 1 - [...] same coagulation reagent and instrumentation as [facility]. Currently there are no coagulation studies available worldwide for children to 14 days, andno normal ranges.Performed By: #### [id number] #### [facility] [address], [place] [address]Mfs-Hxceanl Noteon 01-50-4687Bis-Arrival NotePre-Arrival Note Pre-Arrival Summary Name: , nica Current Date: 10/19/2024 17:08:25 EST Gender: Female Date of : Age: 50 Pre-Arrival Type: EMS ETA: 10/19/2024 17:20:00 EST Primary Care Physician: Presenting Problem: facial droop / slurred speech Pre-Arrival User: Hector Bella Referring Source: Location: ID Completion Date/Time: 10/19/2024 16:51:00 [facility] Emergency Department Pre-Hospital Report Form Vital Signs: Pre-Hospital Report: Treatment in Route: Response to Treatment: Misc. Issues:NormalFisher R Adams Cowley Shock Trauma CenterReference Laboratory Testing Ordered By: Guerline BEAN on 25-66-9298Pxboza [Moles/Vol]922220 mmol/LInvalid Interpretation [facility] SendOutsSSTest NameHypercoag ProfInvalid Interpretation [facility] SendOutsSSRetic Counton 19-29-7487Hgsmpshmupxgo/100 RBC (Bld)2.4 %High 0.5-2.2[facility] Shock Trauma CenterComment on above:Performed By: #### [id number] #### [facility] [address], [place] [address]OOXD Calculatedon 46-08-8526Amyy binding capacity [Mass/Vol]342 microgram/fBIyqjkv371-983NvghwdTwin City HospitalComment on above:Performed By: #### [id number] #### [facility] [address], [place] [address]Coonpvhwwxc [Mass/Vol]244 mg/zSZeqcga006-559HnjotgTwin City HospitalComment on above:Performed By: #### [id number] #### [facility] [address], [place] [address]AXJ With T4fr Reflexon 68-99-7750TIT Qn1.53 m[IU]/LNormal 0.34-5.60[facility] HospitalComment on above:Performed By: #### [id number] #### [facility] [address] [place] [address]Joszlbuj 0 Hr.on 39-58-2309Jvwnbagt HS10.80 pg/mLNormal 10.10-27.10[facility] HospitalComment on above:Result Comment: The 95% CI (Confidence Interval) PPV (Positive Predictive Value) for myocardial infa rction in females is 38 pg/mL, in males 51 pg/mL. The results should be used in conjunction with clinical conditions of myocardial infarction. (Access High Sensitivity Troponin I Instructions For Use, Guillermo [place], April 2018)Performed By: #### [id number] #### [facility] [address], [place] [address]OX with Cult Rflxon 60-49-9236Ykyp of Urine collection method Clean CatchNormalTwin City HospitalComment on above:Performed By: #### [id number] #### [facility] [address], [place] [address]Yse B12on 30-21-9759Cbgiycpeg (Vitamin B12) [Mass/Vol]69 pg/mL Qfzzfw94-7854ZsigbcTwin City HospitalComment on above:Performed By: #### [id number] #### [facility] [address], [place] [address]BY Chest Single Viewon 59-57-6460UP Chest Single ViewExam Date/Time: 10/19/2024 17:27 EST Reason for Exam: Chest pain Report IMPRESSION: NO ACUTE CARDIOPULMONARY DISEASE. CLINICAL HISTORY: Chest pain COMPARISON: 09/30/2020 FINDINGS: Osseous structures intact. Cardiopericardial silhouette normal. Pulmonary vasculature normal. Lungs clear. Ordering Provider: Yung Oropeza FINAL REPORT Dictated: 10/19/2024 5:31 pm Juarez Staples MD Signed (Electronic Signature): 10/19/2024 5:31 pm Signed by: Juarez Staples MD Transcribed by: REZA Technologist: ZenaTwin City HospitaleGFRon 73-42-3574zVJH22 mL/min/1.73 p3Vapwcx>=59[facility] HospitalComment on above:Performed By: #### [id number] #### [facility] [address], [place] [address]Lmqkxi Visiton 86-26-4000Qwtlqd-up [id number] Constantino Cardoso Fred 1970 F Date Provider Department Center 09/17/2024 05694-UPQMMNEDISON DING MICHAEL [facility] Family History Problem Relation Age of Onset Heart attack Father Family Status - Relation Status Age at Father Level of Service:08447 AR OFFICE/OUTPATIENT ESTABLISHED MOD MDM 30 MIN Reason for Visit and Comments: Palpitations [609151] - Occurring no more than usual for her she says. Valve Disorder [3372] - Denies chest pain and SOB. Hypertension [355277] Fatigue [46] - C/o fatigue and no energy .NormalUnBarberton Citizens HospitalBasic Metab w/rfx MGon 99-87-1436Dhrom gap [Moles/Vol]11 mmol/LNormal9-16 [facility] HospitalComment on above:Performed By: #### SANDEEP, BMPX, CDP, MG #### [facility] [address] [place] [address] Intelligence Officer: WAI Milianalcium [Mass/Vol]9.4 mg/dLNormal8.6-10.4[facility] HospitalComment on above:Performed By: #### SANDEEP, BMPX, CDP, MG #### [facility] [address] [place] [address] Intelligence Officer: WAI Milianhloride [Moles/Vol]105 mmol/CVfrlap17-096YxczgCleveland Clinic Marymount HospitalComment on above:Performed By: #### SANDEEP, BMPX, CDP, MG #### [facility] [address] [place] [address] Intelligence Officer: Josef Rivera MDCO2 [Moles/Vol]24 mmol/YUkxxkq56-96OdnhrCleveland Clinic Marymount HospitalComment on above:Performed By: #### SANDEEP, BMPX, CDP, MG #### [facility] [address] [place] [address] Intelligence Officer: WAI Milianreatinine [Mass/Vol]0.8 mg/dLNormal0.6-0.9[facility] HospitalComment on above:Performed By: #### SANDEEP, BMPX, CDP, MG #### [facility] [address] [place] [address] Intelligence Officer: Josef Rivera MDGFR/1.73 sq M.predicted among non-blacks MDRD (S/P/Bld) [Vol rate/Area]88 mL/min/{1.73_m2}Normal>60[facility] HospitalComment on above:Result Comment: These results are not intended for [...] or following therapy that affects renal tubular secretion.Performed By: #### SANDEEP, BMPX, CDP, MG #### [facility] [employer] [address] [place] [address] Intelligence Officer: Josef Rivera MDGlucose [Mass/Vol]107 mg/rMXnaj00-16MwjezWest Anaheim Medical CenterComment on above:Performed By: #### SANDEEP, BMPX, CDP, MG #### [place] [address] Intelligence Officer: ABDOULAYE Milianotassium [Moles/Vol]3.8 mmol/LNormal3.7-5.3 [facility] HospitalComment on above:Performed By: #### SANDEEP, BMPX, CDP, MG #### [facility] [employer] [address] [place] [address] Intelligence Officer: FLOWER Milianodium [Moles/Vol]140 mmol/EUnntoi412-836FexfoCleveland Clinic Marymount HospitalComment on above:Performed By: #### SANDEEP, BMPX, CDP, MG #### [facility] [employer] [address] [place] [address] Intelligence Officer: Josef Rivera MDUrea nitrogen [Mass/Vol]5 mg/dLLow6-20[facility] HospitalComment on above:Performed By: #### SANDEEP, BMPX, CDP, MG #### [facility] [employer] [address] [place] [address] Intelligence Officer: Josef Rivera MDBacentral state hospital Metabolic Panel w/ Reflex to MGon 31-03-2517Qkwya gap [Moles/Vol]11 mmol/L9 - 16 mmol/LBon [facility]ours [facility] Calcium [Mass/Vol]9.4 mg/dL8.6 - 10.4 mg/dLBon Secours Mercy HealthChloride [Moles/Vol]105 mmol/L98 - 107 mmol/LBon [facility] HospitalCO2 [Moles/Vol]24 mmol/L20 - 31 mmol/LBon [facility] HospitalCreatinine [Mass/Vol]0.8 mg/dL0.6 - 0.9 mg/dLBon [facility] HospitalEst, Glom Filt Rate88- PINFBon [facility] HospitalComment on above: These results are not intended [...] therapy that affects renal tubular secretion. Glucose [Mass/Vol]107 mg/fCJwrg65 - 99 mg/dLBon [facility] Interpretation and review of laboratory resultsAbnormalMary Washington Hospital Potassium [Moles/Vol]3.8 mmol/L3.7 - 5.3 mmol/LBon [facility] HospitalSodium [Moles/Vol]140 mmol/L136 - 145 mmol/LBon [facility] HospitalUrea nitrogen [Mass/Vol]5 mg/dLLow6 - 20 mg/dLBon [facility] CBC with Auto Differentialon 60-32-3007Kelziztso (Bld) [#/Vol]0.03 10*3/uLBon [facility] HospitalBasophils/100 WBC (Bld)1 %0 - 2 %[facility] Eosinophils (Bld) [#/Vol]0.27 10*3/uLMary Washington HospitalEosinophils/100 WBC (Bld)5 %High1 - 4 %[facility] HospitalErythrocyte distribution width (RBC) [Ratio]12.7 %11.8 - 14.4 %[facility] HospitalHematocrit (Bld) [Volume fraction]37.4 %36.3 - 47.1 %[facility] Washington HospitalHemoglobin (Bld) [Mass/Vol] 11.5 g/dLLow11.9 - 15.1 g/dLBon [facility] HospitalImmature granulocytes (Bld) [#/Vol]Bon [facility] HospitalImmature granulocytes/100 WBC (Bld)0 %0Bon [facility] HealthInterpretation and review of laboratory resultsAbnormalBon SecNaval Hospital Bremertony HealthLymphocytes/100 WBC (Bld)25 %24 - 43 %[facility] HealthLymphocytes/100 WBC (Bld)1.35 %Bon [facility] HospitalH (RBC) [Entitic mass]28.8 pg25.2 - 33.5 pgBon SecTrumbull Memorial HospitalHC (RBC) [Mass/Vol]30.7 g/dL 28.4 - 34.8 g/dLBon SecTrumbull Memorial HospitalV (RBC) [Entitic vol]93.5 fL82.6 - 102.9 fLBon [facility] HealthMonocytes/100 WBC (Bld)9 %3 - 12 %[facility] HealthMonocytes/100 WBC (Bld)0.46 %[facility] HospitalNeutrophils/100 WBC (Bld)60 %36 - 65 %[facility] HospitalNucleated RBC/100 WBC (Bld) [Ratio]0.0 %0.0 per 100 WBCBon SecNorth [facility]aks [facility] Center HealthPlatelet mean volume (Bld) [Entitic vol]9.1 fL8.1 - 13.5 fLMay[facility] Clinic [facility] ([place]) SecNorth [facility]aks [facility] Center HealthPlatelets (Bld) [#/Vol] 321 10*3/uLBon SecHolmes County Joel Pomerene Memorial HospitalRBC (Bld) [#/Vol]4.00 10*6/uL3.95 - 5.11 m/uL [facility] HospitalSegmented neutrophils/100 WBC (Bld)3.27 %[facility] HospitalWBC other (Bld) [#/Vol]5.4[facility] SecHolmes County Joel Pomerene Memorial HospitalCBC with Diffon [id number]. Basophil0.03 k/uLNormal0.00-0.20[facility] Laguna BeachComment on above:Performed By: #### SANDEEP, BMPX, CDP, MG #### [facility] [address] [place] [address] Intelligence Officer: Ti Milian.Imm.Granulocyte<0.09Ihbibs0.00-0.30[facility] HospitalComment on above:Performed By: #### SANDEEP, BMPX, CDP, MG #### [place] [address] Intelligence Officer: Ti Milian.Neutrophil (Seg)3.27 k/uLNormal1.50-8.10 [facility] HospitalComment on above:Performed By: #### SANDEEP, BMPX, CDP, MG #### [place] [address] Intelligence Officer: Josef Rivera MDBasophils/100 WBC (Bld)1 %Normal0-2MWest Anaheim Medical CenterComment on above:Performed By: #### SANDEEP, BMPX, CDP, MG #### [place] [address] Intelligence Officer: Josef Rivera MDEosinophils (Bld) [#/Vol]0.27 10*3/uLNormal 0.00-0.44[facility] HospitalComment on above:Performed By: #### SANDEEP, BMPX, CDP, MG #### [address] [address] Intelligence Officer: Josef Rivera MDEosinophils/100 WBC (Bld)5 %High1-4[facility] HospitalComment on above:Performed By: #### SANDEEP, BMPX, CDP, MG #### [place] [address] Intelligence Officer: Josef Rivera MDErythrocyte distribution width (RBC) [Ratio]12.7 %Kjsdrk02.8-14.4[facility] HospitalComment on above:Performed By: #### SANDEEP, BMPX, CDP, MG #### [place] [address] Intelligence Officer: Josef Rivera MDHematocrit (Bld) [Volume fraction]37.4 %Normal 36.3-47.1MWest Anaheim Medical CenterComment on above:Performed By: #### SANDEEP, BMPX, CDP, MG #### [address] [address] Intelligence Officer: Josef Rivera MDHemoglobin (Bld) [Mass/Vol]11.5 g/dLLow11.9-15.1 [facility] HospitalComment on above:Performed By: #### SANDEEP, BMPX, CDP, MG #### [place] [address] Intelligence Officer: Josef Rivera MDImmature granulocytes/100 WBC (Bld)0 %Normal0 [facility] HospitalComment on above:Performed By: #### SANDEEP, BMPX, CDP, MG #### [place] [address] Intelligence Officer: Josef Rivera MDLymphocytes (Bld) [#/Vol]1.35 10*3/uLNormal 1.10-3.70[facility] HospitalComment on above:Performed By: #### SANDEEP, BMPX, CDP, MG #### [facility] [employer] [address] [place] [address] Intelligence Officer: Doug Milianmphocytes/100 WBC (Bld)25 %Diacgc95-95UukmiCleveland Clinic Marymount HospitalComment on above:Performed By: #### SANDEEP, BMPX, CDP, MG #### [facility] [employer] [address] [place] [address] Intelligence Officer: VALDO MilianCH (RBC) [Entitic mass]28.8 bmIxwvms79.2-33.5 [facility] HospitalComment on above:Performed By: #### SANDEEP, BMPX, CDP, MG #### [address] [address] Intelligence Officer: VALDO MilianCHC (RBC) [Mass/Vol]30.7 g/qMBeypib19.4-34.8 [facility] HospitalComment on above:Performed By: #### SANDEEP, BMPX, CDP, MG #### [place] [address] Intelligence Officer: VALDO MilianCV (RBC) [Entitic vol]93.5 aHPhditr53.6-102.9 [facility] HospitalComment on above:Performed By: #### SANDEEP, BMPX, CDP, MG #### [place] [address] Intelligence Officer: VALDO Milianonocytes (Bld) [#/Vol]0.46 10*3/uLNormal 0.10-1.20[facility] HospitalComment on above:Performed By: #### SANDEEP, BMPX, CDP, MG #### [place] [address] Intelligence Officer: VALDO Milianonocytes/100 WBC (Bld)9 %Normal3-12[facility] HospitalComment on above:Performed By: #### SANDEEP, BMPX, CDP, MG #### [facility] [employer] [address] [place] [address] Intelligence Officer: Josef Rivera MDNeutrophil (Seg)60 %Uxfwmb16-78VlvwyCleveland Clinic Marymount HospitalComment on above:Performed By: #### SANDEEP, BMPX, CDP, MG #### [facility] [employer] [address] [place] [address] Intelligence Officer: Josef Rivera MDNRBC Automated0.0 per 100 WBCNormal0.0[facility] HospitalComment on above:Performed By: #### SANDEEP, BMPX, CDP, MG #### [facility] [place] [address] Intelligence Officer: Meseret Milian mean volume (Bld) [Entitic vol]9.1 fL Normal8.1-13.5[facility] HospitalComment on above:Performed By: #### SANDEEP, BMPX, CDP, MG #### [facility] [address] [place] [address] Intelligence Officer: Amado Milian (Bld) [#/Vol]321 10*3/lDRbcghd809-998 [facility] HospitalComment on above:Performed By: #### SANDEEP, BMPX, CDP, MG #### [facility] [employer] [address] [place] [address] Intelligence Officer: CHEYANNE Milian (Bld) [#/Vol]4.00 10*6/uLNormal3.95-5.11 [facility] HospitalComment on above:Performed By: #### SANDEEP, BMPX, CDP, MG #### [facility] [employer] [address] [place] [address] Intelligence Officer: Josef Rivera MDW (Bld) [#/Vol]5.4 10*3/uLNormal3.5-11.3MWest Anaheim Medical CenterComment on above:Performed By: #### SANDEEP, BMPX, CDP, MG #### [facility] [employer] [address] [place] [address] Intelligence Officer: Josef Rivera MDGlucose,Whole Bloodon 26-62-5444Sujsfxr [Mass/Vol]104 mg/bGKbawve90-350XtvbwCleveland Clinic Marymount HospitalGlucose [Mass/Vol]120 mg/nYYdyw90-572SahnvCleveland Clinic Marymount HospitalGlucose [Mass/Vol] 97 mg/jXJpryrn10-076JprnyCleveland Clinic Marymount HospitalPOC Glucose Fingerstickon 90-75-3238Trfmsow [Mass/Vol]104 mg/dL65 - 105 mg/dLBon [facility] CenterGlucose [Mass/Vol]120 mg/dKSeuf39 - 105 mg/dLBon [facility] HospitalInterpretation and review of laboratory resultsAbnormalBon [facility] CenterGlucose [Mass/Vol]97 mg/dL65 - 105 mg/dLBon [facility] Medical CenterBasic Metab w/rfx MGon 08-29-2024 Anion gap [Moles/Vol]12 mmol/LNormal9-16[facility] HospitalComment on above:Performed By: #### SANDEEP, BMPX, CDP, MG #### [facility] [address] [place] [address] Intelligence Officer: WAI Milianalcium [Mass/Vol]8.9 mg/dLNormal8.6-10.4[facility] HospitalComment on above:Performed By: #### SANDEEP, BMPX, CDP, MG #### [employer] [address] [place] [address] Intelligence Officer: WAI Milianhloride [Moles/Vol]106 mmol/SIxdakf67-817PddvsCleveland Clinic Marymount HospitalComment on above:Performed By: #### SANDEEP, BMPX, CDP, MG #### [employer] [address] [place] [address] Intelligence Officer: Josef Rivera MDCO2 [Moles/Vol]22 mmol/XUqiqtv57-93OgnaiCleveland Clinic Marymount HospitalComment on above:Performed By: #### SANDEEP, BMPX, CDP, MG #### [employer] [address] [place] [address] Intelligence Officer: WAI Milianreatinine [Mass/Vol]0.7 mg/dLNormal0.6-0.9[facility] HospitalComment on above:Performed By: #### SANDEEP, BMPX, CDP, MG #### [facility] [address] [place] [address] Intelligence Officer: Josef Rivera MDGFR/1.73 sq M.predicted among non-blacks MDRD (S/P/Bld) [Vol rate/Area]mL/min/{1.73_m2}Normal>60[facility] HospitalComment on above:Result Comment: These results are not intended for [...] or following therapy that affects renal tubular secretion.Performed By: #### SANDEEP, BMPX, CDP, MG #### [facility] [employer] [address] [place] [address] Intelligence Officer: Josef Rivera MDGlucose [Mass/Vol]100 mg/qFTvkl47-55DsvtzWest Anaheim Medical CenterComment on above:Performed By: #### SANDEEP, BMPX, CDP, MG #### [facility] [address] [place] [address] Intelligence Officer: ABDOULAYE Milianotassium [Moles/Vol]3.4 mmol/LLow3.7-5.3MWest Anaheim Medical CenterComment on above:Performed By: #### SANDEEP, BMPX, CDP, MG #### [facility] [address] [place] [address] Intelligence Officer: Josef Rivera MDSodium [Moles/Vol]140 mmol/JTgmdik467-737OpsbiCleveland Clinic Marymount HospitalComment on above:Performed By: #### SANDEEP, BMPX, CDP, MG #### [facility] [address] [place] [address] Intelligence Officer: Josef Rivera MDUrea nitrogen [Mass/Vol]9 mg/dLNormal6-20[facility] HospitalComment on above:Performed By: #### SANDEEP, BMPX, CDP, MG #### [facility] [address] [place] [address] Intelligence Officer: Juan Alberto Miliancentral state hospital Metabolic Panel w/ Reflex to MGon [id number] gap [Moles/Vol]12 mmol/L9 - 16 mmol/L[facility] Calcium [Mass/Vol]8.9 mg/dL8.6 - 10.4 mg/dLBon SecGolgi HealthChloride [Moles/Vol]106 mmol/L98 - 107 mmol/LBon [facility]ours Orcan EnergyCO2 [Moles/Vol]22 mmol/L20 - 31 mmol/LBon Secours Orcan EnergyCreatinine [Mass/Vol]0.7 mg/dL0.6 - 0.9 mg/dLBon SecStrutEst, Glom Filt Rate- PINFBon SecStrutComment on above: These results are not intended [...] therapy that affects renal tubular secretion. Glucose [Mass/Vol]100 mg/fBLptl37 - 99 mg/dLBon [employer] Interpretation and review of laboratory resultsAbnormalBon SecStrut Potassium [Moles/Vol]3.4 mmol/LLow3.7 - 5.3 mmol/LBon SecStrutSodium [Moles/Vol]140 mmol/L136 - 145 mmol/LBon SecStrutUrea nitrogen [Mass/Vol]9 mg/dL6 - 20 mg/dLBon SecStrutCBC with Auto Differential on 25-06-5382Gsfklwvsb (Bld) [#/Vol]Bon SecStrutBasophils/100 WBC (Bld)0 %0 - 2 %Bon SecStrutEosinophils (Bld) [#/Vol]0.24 10*3/uLBon SecGolgi HealthEosinophils/100 WBC (Bld)4 %1 - 4 %[facility] SecNorth [facility]aks [facility] Center Health Erythrocyte distribution width (RBC) [Ratio]13.1 %11.8 - 14.4 %Bon [facility] HospitalHematocrit (Bld) [Volume fraction]35.8 %Low36.3 - 47.1 %Bon SecHolmes County Joel Pomerene Memorial HospitalHemoglobin (Bld) [Mass/Vol]11.2 g/dLLow11.9 - 15.1 g/dLBon Secours [facility] Defiance HospitalImmature granulocytes (Bld) [#/Vol][facility] HospitalImmature granulocytes/100 WBC (Bld)0 %0Bon [facility] HospitalInterpretation and review of laboratory resultsAbnormalBon SecNorth Oaks Medical Center HealthLymphocytes/100 WBC (Bld)25 %24 - 43 %[facility] SecHolmes County Joel Pomerene Memorial HospitalLymphocytes/100 WBC (Bld)1.43 %[facility] PulaskiH (RBC) [Entitic mass]29.2 pg25.2 - 33.5 pgBon [facility] HospitalHC (RBC) [Mass/Vol]31.3 g/dL28.4 - 34.8 g/dLBon SecTrumbull Memorial HospitalV (RBC) [Entitic vol]93.2 fL82.6 - 102.9 fLBon [facility] HospitalMonocytes/100 WBC (Bld)7 %3 - 12 %[facility] HospitalMonocytes/100 WBC (Bld)0.39 %[facility] SecHolmes County Joel Pomerene Memorial HospitalNeutrophils/100 WBC (Bld)63 %36 - 65 %[facility] HospitalNucleated RBC/100 WBC (Bld) [Ratio]0.0 %0.0 per 100 WBCBon SecNorth Oaks Medical Center HealthPlatelet mean volume (Bld) [Entitic vol]9.2 fL8.1 - 13.5 fLMayo Clinic Arizona ([place]) SecNorth Oaks Medical Center HealthPlatelets (Bld) [#/Vol]318 10*3/uLBon Secdelfino [facility] HealthRBC (Bld) [#/Vol]3.84 10*6/uLLow3.95 - 5.11 m/uLBon SecHolmes County Joel Pomerene Memorial HospitalSegmented neutrophils/100 WBC (Bld)3.62 %Bon [facility] HospitalWBC other (Bld) [#/Vol] 5.7Bon [facility] HospitalBon [facility] with Diffon 08-29-2024 Abs. Basophil<0.95Bfbvub7.00-0.20[facility] HospitalComment on above:Performed By: #### SANDEEP, BMPX, CDP, MG #### [facility]All[facility] [address] [place] [address] Intelligence Officer: Ti Milian.Imm.Granulocyte<0.30Riwmse4.00-0.30[facility] HospitalComment on above:Performed By: #### SANDEEP, BMPX, CDP, MG #### [facility] [employer] [address] [place] [address] Intelligence Officer: Ti Milian.Neutrophil (Seg)3.62 k/uLNormal1.50-8.10 [facility] HospitalComment on above:Performed By: #### SANDEEP, BMPX, CDP, MG #### [employer] [address] [place] [address] Intelligence Officer: Josef Rivera MDBasophils/100 WBC (Bld)0 %Normal0-2MWest Anaheim Medical CenterComment on above:Performed By: #### SANDEEP, BMPX, CDP, MG #### [employer] [address] [place] [address] Intelligence Officer: Josef Rivera MDEosinophils (Bld) [#/Vol]0.24 10*3/uLNormal 0.00-0.44[facility] HospitalComment on above:Performed By: #### SANDEEP, BMPX, CDP, MG #### [facility] [employer] [address] [place] [address] Intelligence Officer: JAIRO Milianosinophils/100 WBC (Bld)4 %Normal1-4[facility] HospitalComment on above:Performed By: #### SANDEEP, BMPX, CDP, MG #### [facility] [address] [place] [address] Intelligence Officer: Josef Rivera MDErythrocyte distribution width (RBC) [Ratio]13.1 %Njksmt82.8-14.4[facility] HospitalComment on above:Performed By: #### SANDEEP, BMPX, CDP, MG #### [address] [address] Intelligence Officer: Josef Rivera MDHematocrit (Bld) [Volume fraction]35.8 %Low 36.3-47.1MWest Anaheim Medical CenterComment on above:Performed By: #### SANDEEP, BMPX, CDP, MG #### [address] [address] Intelligence Officer: Josef Rivera MDHemoglobin (Bld) [Mass/Vol]11.2 g/dLLow11.9-15.1 [facility] HospitalComment on above:Performed By: #### SANDEEP, BMPX, CDP, MG #### [facility] [employer] [address] [place] [address] Intelligence Officer: Josef Rivera MDImmature granulocytes/100 WBC (Bld)0 %Normal0 [facility] HospitalComment on above:Performed By: #### SANDEEP, BMPX, CDP, MG #### [facility] [employer] [address] [place] [address] Intelligence Officer: Josef Rivera MDLymphocytes (Bld) [#/Vol]1.43 10*3/uLNormal 1.10-3.70[facility] HospitalComment on above:Performed By: #### SANEDEP, BMPX, CDP, MG #### [facility] [employer] [address] [place] [address] Intelligence Officer: Josef Madoff, MDLymphocytes/100 WBC (Bld)25 %Bjuftt86-90CyoozCleveland Clinic Marymount HospitalComment on above:Performed By: #### SANDEEP, BMPX, CDP, MG #### [facility] [address] [place] [address] Intelligence Officer: VALDO MilianCH (RBC) [Entitic mass]29.2 uuUscdpe80.2-33.5 [facility] HospitalComment on above:Performed By: #### SANDEEP, BMPX, CDP, MG #### [facility] [address] [place] [address] Intelligence Officer: VALDO MilianCHC (RBC) [Mass/Vol]31.3 g/wHHmpmqm11.4-34.8 [facility] HospitalComment on above:Performed By: #### SANDEEP, BMPX, CDP, MG #### [facility] [employer] [address] [place] [address] Intelligence Officer: VALDO MilianCV (RBC) [Entitic vol]93.2 iWEzlzbw67.6-102.9 [facility] HospitalComment on above:Performed By: #### SANDEEP, BMPX, CDP, MG #### [facility] [address] [place] [address] Intelligence Officer: VALDO Milianonocytes (Bld) [#/Vol]0.39 10*3/uLNormal 0.10-1.20[facility] HospitalComment on above:Performed By: #### SANDEEP, BMPX, CDP, MG #### [employer] [address] [place] [address] Intelligence Officer: VALDO Milianonocytes/100 WBC (Bld)7 %Normal3-12[facility] HospitalComment on above:Performed By: #### SANDEEP, BMPX, CDP, MG #### [employer] [address] [place] [address] Intelligence Officer: Salud Milianophil (Seg)63 %Aqcnyd92-54TjgxiCleveland Clinic Marymount HospitalComment on above:Performed By: #### SANDEEP, BMPX, CDP, MG #### [facility] [address] [place] [address] Intelligence Officer: RAFIA MilianBC Automated0.0 per 100 WBCNormal0.0[facility] HospitalComment on above:Performed By: #### SANDEEP, BMPX, CDP, MG #### [facility] [address] [place] [address] Intelligence Officer: Meseret Milian mean volume (Bld) [Entitic vol]9.2 fL Normal8.1-13.5[facility] HospitalComment on above:Performed By: #### SANDEEP, BMPX, CDP, MG #### [facility] [address] [place] [address] Intelligence Officer: Amado Milian (Bld) [#/Vol]318 10*3/pSBfudjq166-839 [facility] HospitalComment on above:Performed By: #### SANDEEP, BMPX, CDP, MG #### [employer] [address] [place] [address] Intelligence Officer: CHEYANNE Milian (Bld) [#/Vol]3.84 10*6/uLLow3.95-5.11[facility] HospitalComment on above:Performed By: #### SANDEEP, BMPX, CDP, MG #### [facility] [address] [place] [address] Intelligence Officer: LASHA Milian (Bld) [#/Vol]5.7 10*3/uLNormal3.5-11.3MWest Anaheim Medical CenterComment on above:Performed By: #### SANDEEP, BMPX, CDP, MG #### [employer] [facility] [place], [place] [id number] Intelligence Officer: Josef Rivera MDGlucose,Whole Bloodon 68-34-5992Nmhkphw [Mass/Vol]112 mg/lCGwyx26-817ZflgcCleveland Clinic Marymount HospitalGlucose [Mass/Vol] 114 mg/aRUdcn61-722HrkrxCleveland Clinic Marymount HospitalGlucose [Mass/Vol]104 mg/dL Xvjent47-949MwwtuCleveland Clinic Marymount HospitalGlucose [Mass/Vol]106 mg/dLHigh 65-105Bon [facility] HospitalMagnesiumon 92-72-5202Ypvzasdec [Mass/Vol]2.1 mg/dL1.6 - 2.6 mg/dLBon [facility] Medical CenterMagnesium [Mass/Vol]2.1 mg/dLNormal1.6-2.6[facility] Hospital Laguna BeachComment on above:Performed By: #### SANDEEP, BMPX, CDP, MG #### [employer] [address] [place], [place] [id number] Intelligence Officer: Josef Rivera MDNo Panel Informationon 22-47-0088[facility] Glucose Fingerstickon 80-62-3772Dhezhqx [Mass/Vol]112 mg/dLHigh 65 - 105 mg/dLBon [facility] HospitalInterpretation and review of laboratory resultsAbnormInova Health SystemGlucose [Mass/Vol]114 mg/fEKuaa82 - 105 mg/dLBon [facility] HospitalInterpretation and review of laboratory resultsAbnormalInova Children's HospitalGlucose [Mass/Vol]104 mg/dL65 - 105 mg/dLBon [facility] CenterInterpretation and review of laboratory resultsAbnormInova Health SystemPhosphoruson 74-09-4542Ttgjyvgut [Mass/Vol]4.0 mg/dL2.5 - 4.5 mg/dLBon [facility] HospitalPhosphorus, Inorg.on 63-78-4359Zxurwohcru, Inorg.4.0 mg/dLNormal2.5-4.5[facility] HospitalComment on above:Performed By: #### SANDEEP, BMPX, CDP, MG #### [employer] [address] [place] [address] Intelligence Officer: VKIA Milian ABDOMEN (KUB) (SINGLE AP VIEW)on [phone] ABDOMEN (KUB) (SINGLE AP VIEW)EXAMINATION: ONE SUPINE XRAY VIEW(S) OF THE ABDOMEN [...] likely within the antrum of the stomach. alarm security or surveillance monitor leads overlie the upper abdomen. Iliac [...] Signed by: Paco Richardson MD 08/29/24 Final resultNormalMerMercy Medical CenterXR Abdomen Single viewon . Moderate gaseous distention of the rectal vault. Gas and stool in the rectal vault. 2. Mild stool burden. No abnormally dilated small bowel loops. 3. NG tube distal tip overlying the medial right upper quadrant likely in the antrum of the stomach. MHPN RIS CONSOLIDATEDEXAMINATION: ONE SUPINE XRAY VIEW(S) OF THE ABDOMEN [...] likely within the antrum of the stomach. alarm security or surveillance monitor leads overlie the upper abdomen. Iliac wings and pubic rami grossly unremarkable in appearance. [facility] Paco Hansen MD - 08/29/2024 EXAMINATION: ONE SUPINE XRAY [...] likely within the antrum of the stomach. alarm security or surveillance monitor leads overlie the upper abdomen. Iliac wings and pubic rami grossly unremarkable in appearance. IMPRESSION: 1. Moderate gaseous distention of the rectal vault. Gas and stool in the rectal vault. 2. Mild stool burden. No abnormally dilated small bowel loops. 3. NG tube distal tip overlying the medial right upper quadrant likely in the antrum of the stomach. [facility] HospitalRadiology Study observation (narrative)[facility] HospitalXR Abdomen Single viewOrdered By: Paco Richardson on 67-56-4836Xqu [facility] [employer] Work Phone: cbc with Auto Differentialon [id number] (Bld) [#/Vol][facility] HospitalBasophils/100 WBC (Bld)0 %0 - 2 %[facility] HospitalEosinophils (Bld) [#/Vol]0.05 10*3/uLBon [facility] Eosinophils/100 WBC (Bld)1 %1 - 4 %[facility] HospitalErythrocyte distribution width (RBC) [Ratio]13.1 %11.8 - 14.4 %[facility] Hematocrit (Bld) [Volume fraction]37.2 %36.3 - 47.1 %[facility] Hemoglobin (Bld) [Mass/Vol]11.9 g/dL11.9 - 15.1 g/dLBon [facility] Immature granulocytes (Bld) [#/Vol]0.03 10*3/uLBon [facility] HospitalImmature granulocytes/100 WBC (Bld)0 %0[facility] HospitalInterpretation and review of laboratory resultsAbnormalBon [facility] HospitalLymphocytes/100 WBC (Bld)11 %Low24 - 43 %[facility] HospitalLymphocytes/100 WBC (Bld)0.99 %LowBon [facility] Memorial HospitalH (RBC) [Entitic mass]29.5 pg25.2 - 33.5 pgBon [facility] HospitalHC (RBC) [Mass/Vol]32.0 g/dL28.4 - 34.8 g/dLBon [facility] HospitalMCV (RBC) [Entitic vol]92.3 fL82.6 - 102.9 fLMary Washington Hospital Monocytes/100 WBC (Bld)5 %3 - 12 %[facility] HospitalMonocytes/100 WBC (Bld)0.40 %[facility] HospitalNeutrophils/100 WBC (Bld)83 %High36 - 65 %[facility] HospitalNucleated RBC/100 WBC (Bld) [Ratio]0.0 %0.0 per 100 WBCMary Washington HospitalPlatelet mean volume (Bld) [Entitic vol]9.2 fL8.1 - 13.5 fL [facility] HospitalPlatelets (Bld) [#/Vol]359 10*3/uLBon [facility] HospitalRBC (Bld) [#/Vol]4.03 10*6/uL3.95 - 5.11 m/uLMary Washington Hospital Segmented neutrophils/100 WBC (Bld)7.44 %[facility] HospitalWBC other (Bld) [#/Vol]8.9Bon SecHolmes County Joel Pomerene Memorial HospitalBon [facility] HospitalCBC with Diffon [id number]. Basophil<0.12Qobsfu1.00-0.20[facility] Comment on above:Performed By: #### CDP, CP #### [place] [address] Intelligence Officer: MDAbs. MaicolImm.Granulocyte0.03 k/uLNormal0.00-0.30[facility] HospitalComment on above:Performed By: #### CDP, CP #### [place] [address] Intelligence Officer: Ti Milian.Neutrophil (Seg)7.44 k/uLNormal1.50-8.10 [facility] HospitalComment on above:Performed By: #### CDP, CP #### [place] [address] Intelligence Officer: Josef Rivera MDBasophils/100 WBC (Bld)0 %Normal0-2MWest Anaheim Medical CenterComment on above:Performed By: #### CDP, CP #### [place] [address] Intelligence Officer: Josef Rivera MDEosinophils (Bld) [#/Vol]0.05 10*3/uLNormal 0.00-0.44[facility] Marymount HospitalComment on above:Performed By: #### CDP, CP #### [place] [address] Intelligence Officer: JAIRO Milianosinophils/100 WBC (Bld)1 %Normal1-4[facility] HospitalComment on above:Performed By: #### CDP, CP #### [place] [address] Intelligence Officer: Josef Rivera MDErythrocyte distribution width (RBC) [Ratio]13.1 %Yzkpis37.8-14.4[facility] HospitalComment on above:Performed By: #### CDP, CP #### [place] [address] Intelligence Officer: Josef Rivera MDHematocrit (Bld) [Volume fraction]37.2 %Normal 36.3-47.1MWest Anaheim Medical CenterComment on above:Performed By: #### CDP, CP #### [place] [address] Intelligence Officer: Josef Rivera MDHemoglobin (Bld) [Mass/Vol]11.9 g/dLNormal 11.9-15.1MWest Anaheim Medical CenterComment on above:Performed By: #### CDP, CP #### [place] [address] Intelligence Officer: Sarah Milianmature granulocytes/100 WBC (Bld)0 %Normal0 [facility] HospitalComment on above:Performed By: #### CDP, CP #### [place] [address] Intelligence Officer: Josef Rivera MDLymphocytes (Bld) [#/Vol]0.99 10*3/uLLow 1.10-3.70[facility] HospitalComment on above:Performed By: #### CDP, CP #### [place] [address] Intelligence Officer: Doug Milianmphocytes/100 WBC (Bld)11 %Kfa93-19BeqttCleveland Clinic Marymount HospitalComment on above:Performed By: #### CDP, CP #### [place] [address] Intelligence Officer: VALDO MilianCH (RBC) [Entitic mass]29.5 weOnkltq13.2-33.5 [facility] HospitalComment on above:Performed By: #### CDP, CP #### [address] [address] Intelligence Officer: VALDO MilianCHC (RBC) [Mass/Vol]32.0 g/zPAsqxvy64.4-34.8 [facility] HospitalComment on above:Performed By: #### CDP, CP #### [place] [address] Intelligence Officer: VALDO MilianCV (RBC) [Entitic vol]92.3 zSKujbhe18.6-102.9 [facility] HospitalComment on above:Performed By: #### CDP, CP #### [place] [address] Intelligence Officer: VALDO Milianonocytes (Bld) [#/Vol]0.40 10*3/uLNormal 0.10-1.20[facility] HospitalComment on above:Performed By: #### CDP, CP #### [place] [address] Intelligence Officer: VALDO Milianonocytes/100 WBC (Bld)5 %Normal3-12[facility] HospitalComment on above:Performed By: #### CDP, CP #### [place] [address] Intelligence Officer: Josef Rivera MDNeutrophil (Seg)83 %Mads52-15GffljCleveland Clinic Marymount HospitalComment on above:Performed By: #### CDP, CP #### [address] [address] Intelligence Officer: Josef Rivera MDNRBC Automated0.0 per 100 WBCNormal0.0[facility] HospitalComment on above:Performed By: #### CDP, CP #### [address] [address] Intelligence Officer: Agatha Miliantelarisa mean volume (Bld) [Entitic vol]9.2 fL Normal8.1-13.5[facility] HospitalComment on above:Performed By: #### CDP, CP #### [address] [address] Intelligence Officer: Agatha Miliantealexey (Bld) [#/Vol]359 10*3/jTCtlxqr692-260 [facility] HospitalComment on above:Performed By: #### CDP, CP #### [address] [address] Intelligence Officer: Josef Rivera MDRBC (Bld) [#/Vol]4.03 10*6/uLNormal3.95-5.11 [facility] HospitalComment on above:Performed By: #### CDP, CP #### [address] [address] Intelligence Officer: Josef Rivera MDWBC (Bld) [#/Vol]8.9 10*3/uLNormal3.5-11.3[facility] Laguna BeachComment on above:Performed By: #### CDP, CP #### [address] [address] Intelligence Officer: WAI Milianomp Metabolic Profon 80-98-0786Urvfhdo [Mass/Vol]4.2 g/dLNormal3.5-5.2[facility] Laguna BeachComment on above: Performed By: #### SANDEEP, BMPX, CDP, MG #### [address] [address] Intelligence Officer: Josef Rivera MDAlbumin/Glob Ratio1.8Cdqjtt0.0-2.5[facility] HospitalComment on above:Performed By: #### SANDEEP, BMPX, CDP, MG #### [facility] [address] [place] [address] Intelligence Officer: Bandar Milian Vxcl753 U/RIwmh08-256JvvebCleveland Clinic Marymount HospitalComment on above:Performed By: #### SANDEEP, BMPX, CDP, MG #### [facility] [address] [place] [address] Intelligence Officer: Josef Rivera MDALT [Catalytic activity/Vol]14 U/ZKrywxw25-83 [facility] HospitalComment on above:Performed By: #### SANDEEP, BMPX, CDP, MG #### [facility] [address] [place] [address] Intelligence Officer: Alexi Milian gap [Moles/Vol]11 mmol/LNormal9-16[facility] HospitalComment on above:Performed By: #### SANDEEP, BMPX, CDP, MG #### [address] [address] Intelligence Officer: Josef Rivera MDAST [Catalytic activity/Vol]23 U/EJldtza92-96 [facility] HospitalComment on above:Performed By: #### SANDEEP, BMPX, CDP, MG #### [facility] [employer] [address] [place] [address] Intelligence Officer: Josef Rivera MDBilirubin [Mass/Vol]0.2 mg/dLNormal0.0-1.2MWest Anaheim Medical CenterComment on above:Performed By: #### SANDEEP, BMPX, CDP, MG #### [facility] [employer] [address] [place] [address] Intelligence Officer: Josef Rivera MDCalcium [Mass/Vol]9.4 mg/dLNormal8.6-10.4[facility] HospitalComment on above:Performed By: #### SANDEEP, BMPX, CDP, MG #### [facility] [address] [place] [address] Intelligence Officer: AWI Milianhloride [Moles/Vol]104 mmol/RBqqwrr46-401TdqxzCleveland Clinic Marymount HospitalComment on above:Performed By: #### SANDEEP, BMPX, CDP, MG #### [facility] [address] [place] [address] Intelligence Officer: Josef Rivera MDCO2 [Moles/Vol]23 mmol/TXblhhd43-04TrnvvCleveland Clinic Marymount HospitalComment on above:Performed By: #### SANDEEP, BMPX, CDP, MG #### [facility] [address] [place] [address] Intelligence Officer: WAI Milianreatinine [Mass/Vol]0.7 mg/dLNormal0.6-0.9[facility] HospitalComment on above:Performed By: #### SANDEEP, BMPX, CDP, MG #### [facility] [address] [place] [address] Intelligence Officer: Josef Rivera MDGFR/1.73 sq M.predicted among non-blacks MDRD (S/P/Bld) [Vol rate/Area]mL/min/{1.73_m2}Normal>60[facility] HospitalComment on above:Result Comment: These results are not intended for [...] or following therapy that affects renal tubular secretion.Performed By: #### SANDEEP, BMPX, CDP, MG #### [facility] [address] [place] [address] Intelligence Officer: Josef Rivera MDGlucose [Mass/Vol]115 mg/sVDmff60-20CygthWest Anaheim Medical CenterComment on above:Performed By: #### SANDEEP, BMPX, CDP, MG #### [facility] [address] [place] [address] Intelligence Officer: Josef Rivera MDPotassium [Moles/Vol]4.3 mmol/LNormal3.7-5.3 [facility] HospitalComment on above:Performed By: #### SANDEEP, BMPX, CDP, MG #### [facility] [address] [place] [address] Intelligence Officer: Josef Rivera MDProtein [Mass/Vol]7.1 g/dLNormal6.6-8.7[facility] HospitalComment on above:Performed By: #### SANDEEP, BMPX, CDP, MG #### [facility] [address] [place] [address] Intelligence Officer: Josef Rivera MDSodium [Moles/Vol]138 mmol/HNdhqbk255-303BqroqCleveland Clinic Marymount HospitalComment on above:Performed By: #### SANDEEP, BMPX, CDP, MG #### [facility] [address] [place] [address] Intelligence Officer: Josef Rivera MDUrea nitrogen [Mass/Vol]9 mg/dLNormal6-20[facility] HospitalComment on above:Performed By: #### SANDEEP, BMPX, CDP, MG #### [facility] [address] [place] [address] Intelligence Officer: Josef Rivera [facility] [place]omprehensive Metabolic Panelon 08-28-2024 Albumin [Mass/Vol]4.2 g/dL3.5 - 5.2 g/dLBon [facility] HealthAlbumin/Globulin [Mass ratio]1.4 {ratio}1.0 - 2.5Bon [facility] HealthALP [Catalytic activity/Vol]162 U/LHigh35 - 104 U/LBon SecNorth [facility] HealthALT [Catalytic activity/Vol]14 U/L10 - 35 U/LBon SecNaval Hospital BremertonBenjamin's DeskAnion gap [Moles/Vol]11 mmol/L9 - 16 mmol/LBon [facility] HealthAST [Catalytic activity/Vol]23 U/L10 - 35 U/LBon SecHolmes County Joel Pomerene Memorial HospitalBilirubin [Mass/Vol]0.2 mg/dL0.0 - 1.2 mg/dLBon SecHolmes County Joel Pomerene Memorial HospitalCalcium [Mass/Vol]9.4 mg/dL8.6 - 10.4 mg/dLBon SecNaval Hospital BremertonAllied Digital Services [facility] Health CenterChloride [Moles/Vol]104 mmol/L98 - 107 mmol/LBon SecHolmes County Joel Pomerene Memorial HospitalCO2 [Moles/Vol]23 mmol/L20 - 31 mmol/LBon SecHolmes County Joel Pomerene Memorial HospitalCreatinine [Mass/Vol] 0.7 mg/dL0.6 - 0.9 mg/dLBon [facility] CenterAllied Digital Services [facility] Health CenterEst, Glom Filt Rate- PINFBon [facility] HospitalComment on above: These results are not intended [...] therapy that affects renal tubular secretion. Glucose [Mass/Vol]115 mg/jUHitd14 - 99 mg/dLBon [facility] Interpretation and review of laboratory resultsAbnormalMary Washington Hospital Potassium [Moles/Vol]4.3 mmol/L3.7 - 5.3 mmol/LBon [facility] HospitalProtein [Mass/Vol]7.1 g/dL6.6 - 8.7 g/dLBon [facility] HospitalSodium [Moles/Vol]138 mmol/L136 - 145 mmol/LBon [facility] HospitalUrea nitrogen [Mass/Vol]9 mg/dL6 - 20 mg/dLBon [facility] CenterGlucose,Whole Bloodon 10-85-1471Aqoozcv [Mass/Vol]100 mg/oCZavqpv93-854Jctbz [facility] Laguna BeachLactic Acidon 91-26-7643Dbgbnv Acid, Whole Blood1.2 mmol/L0.7 - 2.1 mmol/L Bon [facility] Medical CenterLactic Acid,Whole Bl1.2 mmol/L Normal0.7-2.1[facility] Laguna BeachComment on above:Performed By: #### SANDEEP, BMPX, CDP, MG #### [facility] [address] [place], [place] [id number] Intelligence Officer: Hazel Miliangnesiumon 47-26-6638Dkmsbsjtz [Mass/Vol]2.1 mg/dL1.6 - 2.6 mg/dLBon [facility] Medical CenterMagnesium [Mass/Vol]2.1 mg/dLNormal1.6-2.6[facility] Laguna BeachComment on above:Performed By: #### MG #### [facility] [address] [place], [place] [address] Intelligence Officer: ABDOULAYE MilianOC Glucose Fingerstickon 32-52-0537Gdhcxdj [Mass/Vol]100 mg/dL65 - 105 mg/dLBon [facility] Medical CenterXR ABDOMEN (KUB) (SINGLE AP VIEW)on 10-15-7760OZ ABDOMEN (KUB) (SINGLE AP VIEW)EXAMINATION: ONE SUPINE XRAY VIEW(S) OF THE ABDOMEN [...] Signed by: Rashaad Lopez MD 08/28/24 Final resultNormalMercy Providence Mission Hospital Laguna BeachXR Abdomen Single viewon . Nonobstructive bowel gas pattern. 2. Mild left lower lobe infiltrate, which could represent pneumonia. [facility] CONSOLIDATEDEXAMINATION: ONE SUPINE XRAY VIEW(S) OF THE ABDOMEN [...] could represent pneumonia. Bony structures appear normal. [facility] Rashaad Hernandez MD - 08/28/2024 EXAMINATION: ONE SUPINE XRAY [...] lower lobe infiltrate, which could represent pneumonia. [facility] HospitalRadiology Study observation (narrative)[facility] Abdomen Single viewOrdered By: Rashaad Lopez on 25-04-2680KyrCarilion [facility] Work Phone: Glucose (Bld) [Mass/Vol]on 56-82-5376Qknprwe Blood, POC90 mg/dLFreeman Cancer InstituteLaboratory - Hematology and Cell countson 07-13-2024 HbA1c (Bld) [Mass fraction]5.6 %[facility] InstituteNo Panel Informationon 07-13-2024 Interpretation and review of laboratory resultsNormalNORipley County Memorial Hospital HealthcareGlucose (Bld) [Mass/Vol]Ordered By: Beverly Clemons on 99-48-3216Lnwnwwa Blood, KRO127 mg/dLFreeman Cancer InstituteLaboratory - Hematology and Cell countson 57-57-2732KnD6a (Bld) [Mass fraction]5.8 %NOMS HealthcareNo Panel Information Ordered By: Beverly Clemons on 06-06-4354NWWJ HealthcareOffice Visiton 05-14-2024 Follow-up [id number] Constantino Cardoso Fred 1970 F Date Provider Department Center 05/14/2024 22536-QQYVRTEDISON YING Family History Problem Relation Age of Onset Heart attack Father Family Status - Relation Status Age at Father Level of Service:67605 [place] OFFICE/OUTPATIENT ESTABLISHED MOD MDM 30 MIN Reason for Visit and Comments: Hypertension [303297] - Patient here for 2 mo follow up. She was started on lisinopril 10mg daily at last visit. She presented to the ED last month for abdominal pain. EKG was done and showed bradycardia. Palpitations [400897] - Not as bad, still has them Shortness of Breath [296262] - ImprovingNormalUniversity of Peterson Regional Medical CenterOffice Visiton 77-73-4410Xaytkv-up [id number] MauryAriellerobles Hairston 1970 F Date Provider Department Center 03/19/2024 44620-HDWHOEEDISON KINCAID Family History Problem Relation Age of Onset Heart attack Father Family Status - Relation Status Age at Father Level of Service:77552 [place] OFFICE/OUTPATIENT ESTABLISHED MOD [facility] MINMercy Health Defiance HospitalCoding Summary.on 60-59-5709Deofxq Summary. XLYYHegq18FZk4nKy+PGhlYWQ+HT9GZKQqO78qjZYemN0oR6FGAOsDDxndCOUNHVrVHwVysjQbHV8zhT NjZXJu [file] wh0lt3dwVVRyU (more content not included)...[facility] Urineon 78-26-5433Uogczjgg identified Cx Nom (U)Microbiology PROCEDURE: Urine Culture [R1] SOURCE: U CleanCatch BODY SITE: COLLECTED DATE/TIME: 02/16/2024 10:01 EDT RECEIVED DATE/TIME: 02/16/2024 14:33 EDT START DATE/TIME: 02/16/2024 14:33 EDT FREE TEXT SOURCE: PURA Lou APRNP-C, Dasha DORAN, LEGAL BILLING COORDINATOR-C, Yolanda X Yolanda X FINAL REPORTS Final [...] Locations R1: This test was performed at: [facility], [address] [place] [address], [address] , , AcoekhFvxstaTriHealthComment on above:Performed By: #### [id number] #### [facility] [address] [place] [address]UMZEQCOWATKfejkuw By: SYSTEM SYSTEM on 33-31-9573Lpavosrve Ql (U)NegativeNormalNegativemg/dLFTMC UA Auto SSClarity (U)Clear (02/16/24 10:01 AM)NormalClearFNORTHEASTERN [facility]A Auto SSColor (U)Light-Yellow 1 (02/16/24 10:01 AM)NormalYellowMERCY HOS[facility] [place] Auto SSComment on above:Interpretive Data: Microscopic readings are only performed on those samples that meet specific criteria set forth by [facility].Epithelial cells.squamous Auto (Urine sed) [#/Area]0-2 graded/HPFInvalid Interpretation CodeFTMC UA Auto SSGlucose Ql (U)NegativeNormalNegativemg/dLFTMC UA Auto SS Hemoglobin Auto test strip (U) [Mass/Vol]1+ mg/dLInvalid Interpretation Code Negativemg/dLFTMC UA Auto SSKetones Auto test strip Ql (U)NegativeNormal Negativemg/dLFTMC UA Auto SSLeukocyte esterase Auto test strip Ql (U)75 Morgan/uL Morgan/uLInvalid Interpretation CodeNegativeLeu/uLFTMC UA Auto SSMucus Auto Ql (U) Trace graded/LPFNormalNegativegraded/LPFFTMC UA Auto SSNitrite Auto test strip Ql (U)NegativeNormalNegativemg/dLMER[facility] [place] [facility] Auto SSpH (U)5.5 *NA* (02/16/24 10:01 AM)Invalid Interpretation Code5.0 - 9.0[facility] Auto SSProtein Ql (U)NegativeNormalNegativemg/dLMERCY HOS[facility] [place] Auto SSRBC Ql (U)0-3 graded/HPFNormal 0-3graded/HPFMERCY HOS[facility] [place] [facility] Auto SSSpecific gravity (U) [Rel density]1.021 *NA* (02/16/24 10:01 AM)Invalid Interpretation Code1.005 - 1.030[facility] Auto SS Urobilinogen (U) [Mass/Vol]NegativeNormalNegativemg/dLMERCY HOSPITAL [facility] [place] [facility] Auto SSWBC Auto (Urine sed) [#/Area]0-5 graded/HPFNormal0-5graded/HPFMERCY HOSPITAL [facility] [place] [facility] Auto SSURINALYSIS Ordered By: Day Santos on 27-99-0277UW Spec DescClean Catch (02/16/24 10:01 AM)NormalMERCY HOSPITAL [facility] [place] UA Auto SSUrinalysis with Microon 02-16-2024 Bilirubin Ql (U)NegativeNormalNegativeTwin City HospitalComment on above:Performed By: #### [id number] #### [facility] [address] [place], [place] [address]Eqbpatv (U)ClearNormalClearTwin City HospitalComment on above:Performed By: #### [id number] #### [facility] [address] [place], [place] [address]Vihas (U)Light-YellowNormalYellowTwin City Hospital Comment on above:Result Comment: Microscopic readings are only performed on those samples that meet specific criteria set forth by [facility].Performed By: #### [id number] #### [facility] [address] [place], [place] [address]Jaaovrqybu cells.squamous Auto (Urine sed) [#/Area]0-2Invalid Interpretation CodeTwin City HospitalComment on above:Performed By: #### [id number] #### [facility] [address] [place], [place] [address]Mtykywb Ql (U)NegativeNormalNegSouthern [facility] Medical Center Comment on above:Performed By: #### [id number] #### [facility] [address] [place], [place] [address]Wvxofwffvf Auto test strip (U) [Mass/Vol]1+ mg/dLAbnormal [facility] Clinic FoundationComment on above:Performed By: #### [id number] #### [facility] [address], [place] [address]Lktbbdq Auto test strip Ql (U)NegativeNormalNegativeTwin City HospitalComment on above:Performed By: #### [id number] #### [facility] [address] [place], [place] [address]Vxdcaxsgu esterase Auto test strip Ql (U)75 Morgan/uLAbnormal [facility] Clinic FoundationComment on above:Performed By: #### [id number] #### [facility] [address] [place], [place] [address]Tnitp Auto Ql (U)TraceNormalNegSouthern [facility] Medical Center Comment on above:Performed By: #### [id number] #### [facility] [address] [place], [place] [address]Iltthcg Auto test strip Ql (U)NegativeNormalNegSouthern Ohio Medical CenterComment on above:Performed By: #### [id number] #### [facility] [address] [place], [place] [address]lV (U)5.5 [pH]Invalid Interpretation Code5.0-9.0Twin City HospitalComment on above:Performed By: #### [id number] #### [facility] [address] [place], [place] [address]Iyemlgj Ql (U)NegativeNormalNegSouthern [facility] Medical Center Comment on above:Performed By: #### [id number] #### [facility] [address] [place] [address]JZW Ql (U)5-8Gbiifo6-4JpxkudAvita Health System Bucyrus HospitalComment on above:Performed By: #### [id number] #### [facility] [address] [place] [address]Aqmxrkhn gravity (U) [Rel density]1.021Invalid Interpretation Code1.005-1.030Twin City HospitalComment on above:Performed By: #### [id number] #### [facility] [address] [place] [address]Jzxmywyykwec (U) [Mass/Vol]NegativeNormalNegativeTwin City HospitalComment on above:Performed By: #### [id number] #### [facility] [address] [place] [address]DBK Auto (Urine sed) [#/Area]2-7Pgeyrp8-6NcimpeAvita Health System Bucyrus HospitalComment on above:Performed By: #### [id number] #### [facility] [address] [place] [address]Rdmx of Urine collection methodClean CatchNoalTwin City HospitalComment on above:Performed By: #### [id number] #### [facility] [address] [place] [address]VGMM POSTPROC EVALon 35-05-2028UQDS POSTPROC EVALHNO ID: [id number] Author: Carlota Jeffrey MD Service: ? Author Type: Anesthesiologist Type: Anesthesia Postprocedure Evaluation Filed: 08/25/2023 5:35 PM Note Text: POST ANESTHESIA EVALUATION NOTE : 1970 Procedure Summary Date: 08/25/23 Room / Location: Gastroenterology Anesthesia Start: 1444 Anesthesia Stop: 1552 Procedure: EGD - THERAPEUTIC, EUS, OR TUBE INTERVENTIONS Diagnosis: Gastroparesis (OTHER) Scheduled Providers: Marques Bradley MD; Carlota Jeffrey MD; Daina Mcmillan APRN.SALVAGE MACHINE OPERATOR Responsible Provider: Carlota Jeffrey MD Anesthesia [...] August 25, 2023 TIME: 5:35 PM CSN: [id number]-Titus Medical Center PRE-OPon [id number] PRE-OPHNO ID: [id number] Author: Carlota Jeffrey MD Service: ? Author [...] August 25, 2023 TIME: 11:46 AM CSN: [id number] Memorial Hospital PHYSICALon [id number] PHYSICALHNO ID: [id number] Author: Gavi Bourgeois MD Service: General Surgery [...] Cardoso DATE: August 25, 2023 TIME: 6:57 AMNormalRiverview Health InstituteNURSING PROGon [id number] PRONO ID: [id number] Author: Melody Walter RN Service: Nursing Author [...] (RECOMMENDATION): None Electronically Signed By: Melody Walter RNCincinnati Children's Hospital Medical Center NURSING [facility] ID: [id number] Author: Pamela Osuna RN Service: ? Author [...] Signed By: Pamela Navarro RN In Department: GASTROENTEROLOGYCincinnati Children's Hospital Medical CenterMagda [id number] (GENSONJAI) CONSTANTINO CARDOSO ([id number]) 1970 F Date Time Provider Department 07/22/23 [...] 04/28/2018 Encounter Status:Closed by EVELYN BLACK on 07/[facility]/23[facility] POSTPROC EVALon [id number] POSTPROC EVALHNO ID: [id number] Author: Sly Carter MD Service: ? Author [...] July 14, 2023 TIME: 12:26 PM CSN: [id number] [facility]'s Hospital PRE-OPon [id number] PRE-OPHNO ID: [id number] Author: Sly Carter MD Service: ? Author [...] 07/14/23833 Resp Temp 36.4 ?C (97.5 ?F) 07/14/23 08 SpO2 97 % 07/14/23833 Outpatient Medications as [...] Surgery/Procedure. SIGNATURE: Sly Carter MD PATIENT NAME: Cnostantino Cardoso DATE: July 14, 2023 TIME: 9:11 AM CSN: [id number]y Hospitals [facility] Center - THERAPEUTIC, EUS, OR TUBE INTERVENTIONSon 02-80-9378Pmcmdknqu ClinicHISTORY PHYSICALon [id number] PHYSICALHNO ID: [id number] Author: Raúl Quintero MD Service: General Surgery [...] medications for this visit. REVIEW OF SYSTEMS: SHIPFITTER: Negative for CVA, Negative for TIA Respiratory: [...] Cardoso DATE: July 14, 2023 TIME: 9:40 [facility] [id number] PROGHNO ID: [id number] Author: Mónica Spaulding RN Service: Nursing Author Type: Registered Nurse Type: Nursing Progress Note Filed: 07/14/2023 11:21 AM Note Text: 1121: Dr. Mehrdad Carter paged : Patient Constantino Cardoso in post bed 10: Complaining of 10/10 abdominal pain (gas), mild nausea. Any further orders? Thanks! Mari Spaulding RN [facility] ID: [id number] Author: Mónica Spaulding RN Service: Nursing Author [...] None Electronically Signed By: Mónica Spaulding RN BSNNKeenan Private Hospital [facility] ID: [id number] Author: Candace Jaramillo RN Service: ? Author [...] Signed By: Candace Jaramillo RN In Department: GASTROENTEROLOGYNormalCUC West Chester HospitalRWELLSPAN HEALTHAL PATHOLOGYon 07-14-2023 ADDENDUM 1:[facility] Medical CenterComascension borgess hospital on above:Order Comment: Specimen Type: TISSUE SPECIMENOrdering Facility: [facility] Address: [facility] [place], [place] [address]Result Comment: Given the background of chronic gastritis a Helicobacter pylori immunostain was performed on block A and is negative for Helicobacter pylori organisms. AEB 07/20/2023 Laboratory Developed Test (LDT) Disclaimer: Performance characteristics of immunohistochemical, immunofluorescent and chromogenic in-situ hybridization tests have been determined by the performing laboratory within [facility]???s Orestes Amador [facility] Pathology and Laboratory Medicine [place] ([facility], [facility], [facility], [facility], [facility], [facility], or [facility]) in a manner consistent with CLIA [...] at 9:30 AM Performed By: #### S ####[facility] LABCLIA [id number] [place] [id number] [place] STATES OF AMERICACASE REPORT [facility] on above:Order Comment: Specimen Type: TISSUE SPECIMENOrdering Facility: [facility] Address: [address] [place], [place] [address]Result Comment: Surgical Pathology Report Case: [id number] Authorizing Provider: Marques Bradley MD Collected: 07/14/2023 10:42 AM Ordering Location: Gastroenterology Received: 07/14/2023 07:34 PM Pathologist: Pepper Zacarias MD Specimen: STOMACH BIOPSY, R/O H.PyloriPerformed By: #### S ####[facility] LABCLIA [id number] [address] OF AMERICADIAGNOSIS COMMENTImmunohistochemical stain for Helicobacter pylori is pending and will be reported as an addendum.Normal [facility] on above:Order Comment: Specimen Type: TISSUE SPECIMENOrdering Facility: [facility] Address: [address] [place], [place] [address]Performed By: #### S ####[facility] LABCLIA [id number] [place] [id number] [facility] OF [facility] HOSPITALFINAL DIAGNOSISNormalCSt. John of God Hospital on above:Order Comment: Specimen Type: TISSUE SPECIMENOrdering Facility: [facility] Address: [address] [place], [place] [address]Result Comment: A. Stomach, biopsy: - Chronic inactive gastritis. See comment. AEB/dkm 07/18/2023 Performed By: #### S ####[facility] LABCLIA [id number] [place] [id number] [place] OF AMERICAFINAL PERFORMING LAB NormalCleveland Clinic ClevelandComment on above:Order Comment: Specimen Type: TISSUE SPECIMENOrdering Facility: [facility] Address: [address] [place], [place] [address]Result Comment: Diagnostic interpretation performed at [facility], [address] [place] [address] CLIA# [id number] Railroad Shop Inspector: Maurisio Ritchie M.D.Performed By: #### S ####[facility] LABIA [id number] [address] OF [facility] HOSPITALGROSS DESCRIPTIONNormalCPeoples Hospital Comment on above:Order Comment: Specimen Type: TISSUE SPECIMENOrdering Facility: [facility] Address: [address] [place], [place] [address]Result Comment: A. STOMACH BIOPSY Received in formalin are two pieces of hager, soft tissue aggregating to 0.5 x 0.2 x 0.2 cm. Totally submitted in one cassette. Two Gross examination performed at [address] July 14, 2023 11:10 PMPerformed By: #### S ####[facility] LABIA [id number] [address]CNPNon 59-14-5040OENSEvwkdzvts (GENBMI) CONSTANTINO CARDOSO ([id number]) 1970 F Date Time Provider Department 05/27/23 [...] 04/28/2018 Encounter Status:Closed by EVELYN BLACK on 05/27/23[facility] GASTRIC EMPTYING SOLIDon 56-60-4972ZP GASTRIC EMPTYING SOLID* * *Final Report* * * DATE OF EXAM: May 26 2023 11:11AM [facility] 0017 - [place] GASTRIC EMPTYING SOLID [...] RATE OF GASTRIC EMPTYING OF SOLID MEAL. [employer]: MELINDA Transcribe Date/Time: May 26 2023 11:18A Dictated by : SILVANO WELSH MD This examination was interpreted and the report reviewed and electronically signed by: SILVANO WELSH MD on May 26 2023 11:18AM EST [id number] County Joel Pomerene Memorial HospitalNURSEon 05-25-2023 CNNURSENurse Visit (GASTMN) CONSTANTINO CARDOSO ([id number]) 1970 F Date Time Provider Department 05/25/23 8:30 AM NURSE GI LAB 2 GASTMN During your visit today, we recorded the following information about you: Pedro Gonzalez LPN 05/25/2023 4:15 PM Signed Name: Constantino Cardoso CC#: [id number] Date: 05/25/2023 ESOPHAGEAL MANOMETRY TEST Indication: Nausea [...] .Pedro Gonzalez LPN Referring Provider: MARQUES BRADLEY [[id number]] Allergies As of Date: 05/25/2023 Noted Allergy Reaction FLEXERIL (CYCLOBENZAPRINE) 04/28/2018 7 - Swelling PENICILLIN 04/28/2018 7 - Swelling Date Reviewed: 05/06/2023 Reviewed by: Judy Michaels MA - Fully Assessed Reason for Visit: Procedure [88] Cmt: Manometry Esophageal Visit Diagnosis:Nausea [R11.0] Order(s):MANOMETRY ESOPHAGEAL [41374HQU] Order #: [id number] Prescriptions as of 05/25/2023 - dicyclomine (BENTYL) [...] 04/28/2018 Encounter Status:Closed by PEDRO GONZALEZ on [facility]/25/23[facility] 35-75-2749RMSEPahxkmqal (GENBMI) CONSTANTINO CARDOSO ([id number]) 1970 F Date Time Provider Department 05/16/23 EVELYN BLACK During your visit today, we recorded the following information about you: Evelyn Black, RN 05/16/2023 12:10 PM Signed BMI SPECIALTY CARE COORDINATION TELEPHONE ENCOUNTER Pt. was seen in clinic and was ordered a manometry for dysphagia and also a GES. Pt s/p RYGB 2017 and had a HHR in 2019. C/O [...] 04/28/2018 Encounter Status:Closed by EVELYN BLACK on 05/16/23[facility] [id number] Visit (GENBMI) CONSTANTINO CARDOSO ([id number]) 1970 F Date Time Provider Department 05/06/23 8:50 AM [facility] During your visit today, we recorded the [...] for internal providers or letter via the [employer] for external providers. Chief Complaint: [...] patient during consultation. Assessment Assessment and Plan: Constanitno Cardoso is a 52 year old year [...] Time: 8:15 AM Referring Provider: IMER CHERRY [[id number]] Allergies As of Date: 05/06/2023 Noted Allergy Reaction (more content not included)...NormalRiverview Health InstituteCNPNon 05-02-2023 CNPNTelephone (GENBMI) CONSTANTINO CARDOSO ([id number]) 1970 F Date Time Provider Department 05/02/23 EVELYN BLACKI During your visit today, we recorded the following information about you: Evelyn Black, RN 05/04/2023 1:55 PM Addendum BMI SPECIALTY CARE COORDINATION TELEPHONE ENCOUNTER Chief complaint AND duration dysphagia. Type of procedure: hernia repair hiatal with Dr. MORTENSEN in [place] February of 2019. Sending OP notes Nursing assessment (subjective/objective) . pain in chest area and getting worse, hard to breathe c/o nausea and oral intolerance, using miralax for BM Went to [place] ED March 2023 who told her she needed a stent in her heart..but her c/o were difficulty swallowing and sent pt home and referred her to [facility] and was admitted for almost a [...] HHR a year later @ OSH in [place] Recommendation: appt after records obtained, encouraged small [...] 04/28/2018 Encounter Status:Closed by EVELYN BLACK on 05/02/23[facility] 70-88-8128BHLBGfismufrn (GENBMI) CONSTANTINO CARDOSO ([id number]) 1970 F Date Time Provider Department 04/26/23 [...] 04/28/2018 Encounter Status:Closed by EVELYN BLACK on 04/26/23[facility] 80-26-7020NNDRXfngpqatm (GENBMI) CONSTANTINO CARDOSO ([id number]) 1970 F Date Time Provider Department 04/18/23 [...] Ma - Fully Assessed 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 Guillermo Martinez DO 04/13/2023 10:02 AM Signed Post surgical needs to be seen by Kitty Moore 04/13/2023 10:45 AM Signed Forward to [...] 04/28/2018 Encounter Status:Closed by YANCY LOPEZ on 04/07/23NoRegency Hospital ToledoAlanine aminotransferase [Enzymatic activity/volume] in Serum or Plasma Ordered By: Pete Thakkar on 78-69-0211QJV [Catalytic activity/Vol]11 U/L -52[facility] CenterAlbumin [Mass/volume] in Serum or Plasma by Bromocresol green (BCG) dye binding methoOrdered By: Pete Thakkar on 44-49-2539Wnoeapt BCG dye [Mass/Vol]4.1 g/dL3.5-5.7FHighland District HospitalAlkaline phosphatase [Enzymatic activity/volume] in Serum or PlasmaOrdered By: Pete Thakkar on 47-02-3141SZY [Catalytic activity/Vol]115 U/L34-104 [facility] CenterAspartate aminotransferase [Enzymatic activity/volume] in Serum or PlasmaOrdered By: Pete Thakkar on 03-23-2023 AST [Catalytic activity/Vol]15 U/J99-01XsdblxklbAdena Fayette Medical Center Automated erythrocytes count in urine sediment (number/area)Ordered By: Pete Thakkar on 75-64-6266GKQ Auto (Urine sed) [#/Area]0-1 [HPF]0-4 [facility] CenterAutomated leukocytes count in urine sediment (number/area)Ordered By: Pete Thakkar on 46-73-0001ASL Auto (Urine sed) [#/Area]0-1 [HPF]0-4FHighland District HospitalBasophils Auto (Bld) [#/Vol]Ordered By: Pete Thakkar on 60-96-1913Ptjmzsack (Bld) [#/Vol]0.1 10*3/uL0.0-0.2FHighland District HospitalBasophils/100 WBC Auto (Bld) Ordered By: Pete Thakkar on 20-47-4485Fjkabobpo/100 WBC (Bld)1.0 %. [facility] CenterBilirubin Test strip Ql (U)Ordered By: Pete Thakkar on 68-57-3371Fwzbbndqc Ql (U)NegativeNegativeAdena Fayette Medical CenterBilirubin.direct [Mass/volume] in Serum or PlasmaOrdered By: Pete Thakkar on 09-91-7328Fcrpcupqh.direct [Mass/Vol]0.10 mg/dL 0.03-0.18FHighland District HospitalBilirubin.total [Mass/volume] in Serum or PlasmaOrdered By: Pete Thakkar on 44-66-0883Vzphafnhx [Mass/Vol]0.3 mg/dL0.3-1.0[facility] CenterCalcium [Mass/volume] in Serum or PlasmaOrdered By: Pete Thakkar on 57-71-0142Thridkb [Mass/Vol]9.0 mg/dL 8.6-10.3FHighland District HospitalCarbon dioxide, total [Moles/volume] in Serum or PlasmaOrdered By: Pete Thakkar on 75-44-4975MU7 [Moles/Vol]24.5 mmol/L21.0-31.0[facility] CenterChloride [Moles/volume] in Serum or PlasmaOrdered By: Pete Thakkar on 76-87-4290Gfhexreo [Moles/Vol]111 mmol/F91-701BoruodqwoAdena Fayette Medical CenterColor Auto (U)Ordered By: Pete Thakkar on 86-98-1845Eebzu (U)YellowYellowAdena Fayette Medical Center Creatinine [Mass/volume] in Serum or PlasmaOrdered By: Pete Thakkar on 52-91-8605Azuiovtiso [Mass/Vol]0.72 mg/dL0.60-1.20[facility] CenterEosinophils Auto (Bld) [#/Vol]Ordered By: Pete Thakkar on 03-23-2023 Eosinophils (Bld) [#/Vol]0.3 10*3/uL0.0-0.45[facility] Eosinophils/100 WBC Auto (Bld)Ordered By: Pete Thakkar on 03-23-2023 Eosinophils/100 WBC (Bld)5.0 %.[facility] CenterErythrocyte distribution width Auto (RBC) [Ratio]Ordered By: Pete Thakkar on 03-23-2023 Erythrocyte distribution width (RBC) [Ratio]13.6 %11.9-15.3FHighland District HospitalGlobulin Calc (S) [Mass/Vol]Ordered By: Pete Thakkar on 43-13-2139Llemppjc (S) [Mass/Vol]2.9 g/dLAdena Fayette Medical Center Glucose [Mass/volume] in Serum or PlasmaOrdered By: Pete Thakkar on 66-80-0854Ugfczlu [Mass/Vol]79 mg/hF33-910TdaejvfzoAdena Fayette Medical Center Comment on above:ADA recommended reference rangeRandom Glucose Reference Range is dependent on time and content of last meal. Glucose of more than 200 mg/dL in a nonstressed, ambulatory subject supports the diagnosisof Diabetes Mellitus. Hematocrit Auto (Bld) [Volume fraction]Ordered By: Pete Thakkar on 07-38-4410Qonwikwppv (Bld) [Volume fraction]35.7 %34.0-46.4FHighland District HospitalHemoglobin [Mass/volume] in BloodOrdered By: Pete Thakkar on 00-16-4728Kvmtqjwyyd (Bld) [Mass/Vol]12.0 g/dL11.8-15.4FHighland District HospitalKetones Auto test strip (U) [Mass/Vol]Ordered By: Pete Thakkar on 33-90-8266Lkxzexa (U) [Mass/Vol]NegativeNegativeAdena Fayette Medical CenterLaboratory - UrinalysisOrdered By: Pete Thakkar on 03-23-2023 Hyaline casts LM Ql (Urine sed)None seen [LPF]0-8[facility] CenterLeukocytes [#/volume] corrected for nucleated erythrocytes in Blood by Automated counOrdered By: Pete Thakkar on 49-78-0999CIZ corrected for nucl RBC Auto (Bld) [#/Vol]6.3 10*3/uL3.8-11.6FHighland District HospitalLipase [Enzymatic activity/volume] in Serum or PlasmaOrdered By: Pete Thakkar on 10-94-7882Kplbid [Catalytic activity/Vol]32.0 U/L11.0-82.0[facility] CenterLymphocytes Auto (Bld) [#/Vol]Ordered By: Pete Thakkar on 77-89-8849Cdfikdnfihe (Bld) [#/Vol]2.3 10*3/uL1.00-4.8[facility] CenterLymphocytes/100 WBC Auto (Bld)Ordered By: Pete Thakkar on 03-23-2023 Lymphocytes/100 WBC (Bld)36.1 %.[facility] Medical CenterMCH Auto (RBC) [Entitic mass]Ordered By: Pete Thakkar on 66-74-3088RSV (RBC) [Entitic mass]29.2 pg24.7-34.3FHighland District HospitalMCHC Auto (RBC) [Mass/Vol] Ordered By: Pete Thakkar on 51-52-7475OLLR (RBC) [Mass/Vol]33.7 g/dL 32.0-35.0[facility] CenterMCV Auto (RBC) [Entitic vol]Ordered By: Pete Thakkar on 40-41-1145OVB (RBC) [Entitic vol]86.7 qB09-361HoactyangAdena Fayette Medical CenterMonocyte distribution width [Entitic volume] in Blood by AutomatedOrdered By: Pete Thakkar on 58-99-8031Imelfsdk distribution width Auto (Bld) [Entitic vol]16.44 %0.00-20.00[facility] Monocytes Auto (Bld) [#/Vol]Ordered By: Pete Thakkar on 17-37-0219Bzhyzfvrd (Bld) [#/Vol]0.5 10*3/uL0.0-0.8[facility] CenterMonocytes/100 WBC Auto (Bld)Ordered By: Pete Thakkar on 95-15-8941Avmzjxess/100 WBC (Bld) 7.7 %.[facility] Medical CenterNeutrophils Auto (Bld) [#/Vol]Ordered By: Pete Thakkar on 12-56-2873Ubpnzsxyjxa (Bld) [#/Vol]3.2 10*3/uL1.8-7.7 [facility] CenterNeutrophils/100 WBC Auto (Bld)Ordered By: Pete Thakkar on 14-43-5201Vqyhgbyvqxf/100 WBC (Bld)50.2 %.[facility] Medical CenterNitrite Test strip Ql (U)Ordered By: Pete Thakkar on 75-15-2162Bpblavy Ql (U)NegativeNegativeAdena Fayette Medical CenterNo Panel InformationOrdered By: Pete Thakkar on 96-42-5940Ycdoslhvd GFR (CKD-EPI)> 60.0 mL/MinAdena Fayette Medical CenterPharmacy Creatinine Clearance (Wykz367.27[facility] CenterNucleated erythrocytes [Presence] in Blood by Automated countOrdered By: Pete Thakkar on 45-97-2992Vbyjixqpt RBC Auto Ql (Bld)0.1 /100{WBC}0-0.5FHighland District HospitalPlatelet mean volume Auto (Bld) [Entitic vol]Ordered By: Pete Thakkar on 65-02-8695Ehqnnxar mean volume (Bld) [Entitic vol]7.6 fL6.3-10.7 [facility] CenterPlatelets Auto (Bld) [#/Vol]Ordered By: Pete Thakkar on 32-00-9673Prpckagic (Bld) [#/Vol]357 10*3/qF762-010 [facility] CenterPotassium [Moles/volume] in Serum or Plasma Ordered By: Pete Thakkar on 13-58-4852Oolyvvkzc [Moles/Vol]3.6 mmol/L 3.5-5.1FHighland District HospitalProtein Auto test strip (U) [Mass/Vol] Ordered By: Pete Thakkar on 63-04-4795Ouqrbpt (U) [Mass/Vol]Negative NegativeAdena Fayette Medical CenterProtein [Mass/volume] in Serum or PlasmaOrdered By: Pete Thakkar on 15-58-4014Rpafxtr [Mass/Vol]7.0 g/dL 6.4-8.9[facility] CenterRBC Auto (Bld) [#/Vol]Ordered By: Pete Thakkar on 71-99-4174BWT (Bld) [#/Vol]4.12 10*6/uL3.60-5.00[facility] Tiffin Hospitalerum or plasma albumin/globulin mass ratioOrdered By: Pete Thakkar on 09-89-8112Bqqwapy/Globulin [Mass ratio]1.4 {ratio}[facility] Hospitalerum or plasma anion gap determinationOrdered By: Pete Thakkar on 35-47-0924Ujgof gap [Moles/Vol]10.1 mmol/L6.0-15.0[facility] Hospitalerum or plasma non-glucuronidated bilirubin measurement (mass/volume)Ordered By: Pete Thakkar on 80-25-7360Brytvebdi.indirect [Mass/Vol]0.2 mg/dLMercy Health Tiffin Hospitalodium [Moles/volume] in Serum or PlasmaOrdered By: Pete Thakkar on 60-71-9812Lsejjj [Moles/Vol]142 mmol/L908-057EmvggodjmMercy Health Tiffin Hospitalpecific gravity Auto test strip (U) [Rel density]Ordered By: Pete Thakkar on 03-72-6815Kcumiaye gravity (U) [Rel density]1.0481.001-1.030Mer[facility] Tiffin Hospitalquamous epithelial cells detection in urine sediment by light microscopyOrdered By: Pete Thakkar on 46-41-6081Wrlrermmsz cells.squamous LM Ql (Urine sed)None seen [HPF]0-2FHighland District HospitalTroponin I.cardiac [Mass/volume] in Serum or Plasma by Detection limit <= 0.01 ng/Ordered By: Pete Thakkar on 71-96-3126Rdcfwzmd I.cardiac DL <= 0.01 ng/mL [Mass/Vol]12.2 pg/mL0.0-15.0 [facility] CenterUrea nitrogen [Mass/volume] in Serum or Plasma Ordered By: Pete Thakkar on 54-17-2342Cmtf nitrogen [Mass/Vol]24 mg/dL7-25 [facility] CenterUrine bacteria detection by automated method Ordered By: Pete Thakkar on 69-54-9561Zhakdqrx Auto Ql (U)1+None Seen [facility] CenterUrine clarity by refractometry automatedOrdered By: Pete Thakkar on 53-96-2256Gszorjo Refractometry automated (U)Clear ClearAdena Fayette Medical CenterUrine glucose measurement by automated test strip (mass/volume)Ordered By: Pete Thakkar on 40-35-2187Diwtsjz Auto test strip (U) [Mass/Vol]Normal mg/dLNormSelect Medical Specialty Hospital - Canton Urine hemoglobin detection by automated test stripOrdered By: Pete Thakkar on 25-84-2530Xkpghwaxrh Auto test strip Ql (U)TraceNegativeAdena Fayette Medical CenterUrine leukocyte esterase detection by automated test stripOrdered By: Pete Thakkar on 16-05-5791Uwvlwfbhn esterase Auto test strip Ql (U) NegativeNegLake County Memorial Hospital - WestUrobilinogen Auto test strip (U) [Mass/Vol]Ordered By: Pete Thakkar on 97-03-7324Zvgzlawaieyq (U) [Mass/Vol]Normal mg/dLNormSelect Medical Specialty Hospital - CantonWBC Auto (Bld) [#/Vol]Ordered By: Pete Thakkar on 53-70-0847HDD (Bld) [#/Vol]6.3 10*3/uL 3.8-11.6FHighland District HospitalpH Auto test strip (U)Ordered By: Pete Thakkar on 16-89-2088cZ (U)5.0 [pH]5.0-9.0[facility] CenterActivated partial thromboplastin time (aPTT) in platelet poor plasma by coagulation aOrdered By: Conner Griffith on 56-28-1373rPDC Coag (PPP) [Time]37.0 s 25.1-36.5FHighland District HospitalAlanine aminotransferase [Enzymatic activity/volume] in Serum or PlasmaOrdered By: Conner Griffith on 05-80-2883JDH [Catalytic activity/Vol]13 U/L7-52[facility] CenterAlbumin [Mass/volume] in Serum or Plasma by Bromocresol green (BCG) dye binding metho Ordered By: Conner Griffith on 40-16-8348Hfqnisk BCG dye [Mass/Vol]4.3 g/dL3.5-5.7 [facility] CenterAlkaline phosphatase [Enzymatic activity/volume] in Serum or PlasmaOrdered By: Conner Griffith on 00-51-7887ZII [Catalytic activity/Vol]124 U/P82-961JhccycttzAdena Fayette Medical CenterAspartate aminotransferase [Enzymatic activity/volume] in Serum or PlasmaOrdered By: Conner Griffith on 41-26-9230DXI [Catalytic activity/Vol]15 U/R80-67LduvhqrnsAdena Fayette Medical CenterBasophils Auto (Bld) [#/Vol]Ordered By: Conner Griffith on 02-15-2023 Basophils (Bld) [#/Vol]0.0 10*3/uL0.0-0.2FHighland District Hospital Basophils/100 WBC Auto (Bld)Ordered By: Conner Griffith on 57-46-6698Vauqfffqo/100 WBC (Bld)0.6 %.[facility] CenterBilirubin.direct [Mass/volume] in Serum or PlasmaOrdered By: Conner Griffith on 56-27-1229Bnyllovcs.direct [Mass/Vol]0.00 mg/dL0.03-0.18FHighland District HospitalComment on above: If the DBIL is less than 0.1, IBIL is not able to becalculated.Bilirubin.total [Mass/volume] in Serum or PlasmaOrdered By: Conner Griffith on 71-74-2428Kqdalmglr [Mass/Vol]0.4 mg/dL0.3-1.0[facility] CenterCalcium [Mass/volume] in Serum or PlasmaOrdered By: Conner Griffith on 46-26-3055Ontyvlo [Mass/Vol]9.3 mg/dL8.6-10.3FHighland District HospitalCarbon dioxide, total [Moles/volume] in Serum or PlasmaOrdered By: Conner Griffith on 10-73-9235VV5 [Moles/Vol]25.3 mmol/L21.0-31.0[facility] CenterChloride [Moles/volume] in Serum or PlasmaOrdered By: Conner Griffith on 37-47-2321Yzujygbk [Moles/Vol]106 mmol/G70-241ZvurymupqAdena Fayette Medical CenterCreatinine [Mass/volume] in Serum or PlasmaOrdered By: Conner Griffith on 92-30-8056Fjxebakbbw [Mass/Vol]0.77 mg/dL0.60-1.20[facility] CenterEosinophils Auto (Bld) [#/Vol]Ordered By: Conner Griffith on 47-01-7072Mlshtucngyh (Bld) [#/Vol]0.2 10*3/uL0.0-0.45[facility] CenterEosinophils/100 WBC Auto (Bld) Ordered By: Conner Griffith on 98-85-8807Marhzylgwnz/100 WBC (Bld)4.0 %.[facility] CenterErythrocyte distribution width Auto (RBC) [Ratio]Ordered By: Conner Griffith on 86-83-4039Vzqqwzmbqlo distribution width (RBC) [Ratio]13.5 % 11.9-15.3FHighland District HospitalGlobulin Calc (S) [Mass/Vol]Ordered By: Conner Griffith 02-22-0576Gzjuezmx (S) [Mass/Vol]3.0 g/dLAdena Fayette Medical CenterGlucose [Mass/volume] in Serum or PlasmaOrdered By: Conner Griffith on 27-04-3409Ngwzxvx [Mass/Vol]94 mg/qH85-865QhymwjtucAdena Fayette Medical Center Comment on above:ADA recommended reference rangeRandom Glucose Reference Range is dependent on time and content of last meal. Glucose of more than 200 mg/dL in a nonstressed, ambulatory subject supports the diagnosisof Diabetes Mellitus. Hematocrit Auto (Bld) [Volume fraction]Ordered By: Conner Griffith on 02-15-2023 Hematocrit (Bld) [Volume fraction]38.4 %34.0-46.4FHighland District HospitalHemoglobin [Mass/volume] in BloodOrdered By: Conner Griffith on 02-15-2023 Hemoglobin (Bld) [Mass/Vol]13.0 g/dL11.8-15.4FHighland District Hospital Laboratory - CoagulationOrdered By: Conner Griffith on 30-91-6302XX Coag (PPP) [Time]11.7 s9.0-12.9[facility] CenterLeukocytes [#/volume] corrected for nucleated erythrocytes in Blood by Automated counOrdered By: Conner Griffith on 70-01-8356GUT corrected for nucl RBC Auto (Bld) [#/Vol]5.2 10*3/uL 3.8-11.6FHighland District HospitalLipase [Enzymatic activity/volume] in Serum or PlasmaOrdered By: Conner Griffith on 74-09-1273Qqveph [Catalytic activity/Vol]19.0 U/L11.0-82.0[facility] CenterLymphocytes Auto (Bld) [#/Vol]Ordered By: Conner Griffith on 49-90-6487Hevpwytksrw (Bld) [#/Vol]1.8 10*3/uL1.00-4.8[facility] CenterLymphocytes/100 WBC Auto (Bld) Ordered By: Conner Griffith on 49-38-4745Ghqqywbtgca/100 WBC (Bld)33.8 %.[facility] CenterMCH Auto (RBC) [Entitic mass]Ordered By: Conner Griffith on 22-85-9852NSS (RBC) [Entitic mass]29.4 pg24.7-34.3FHighland District HospitalMCHC Auto (RBC) [Mass/Vol]Ordered By: Conner Griffith on 27-73-7196RSLL (RBC) [Mass/Vol]33.8 g/dL32.0-35.0[facility] CenterMCV Auto (RBC) [Entitic vol]Ordered By: Conner Griffith on 93-04-8953SFK (RBC) [Entitic vol]86.8 fL 80-100[facility] CenterMonocyte distribution width [Entitic volume] in Blood by AutomatedOrdered By: Conner Griffith on 46-61-9547Crchkvnc distribution width Auto (Bld) [Entitic vol]18.21 %0.00-20.00[facility] CenterMonocytes Auto (Bld) [#/Vol]Ordered By: Conner Griffith on 02-15-2023 Monocytes (Bld) [#/Vol]0.3 10*3/uL0.0-0.8[facility] Monocytes/100 WBC Auto (Bld)Ordered By: Conner Griffith on 73-23-7002Rjfbcxheu/100 WBC (Bld)4.8 %.[facility] CenterNeutrophils Auto (Bld) [#/Vol] Ordered By: Conner Griffith on 33-01-2303Qkwimqzhpph (Bld) [#/Vol]3.0 10*3/uL1.8-7.7 [facility] CenterNeutrophils/100 WBC Auto (Bld)Ordered By: Conner Griffith on 74-51-3233Crxmthpdzzv/100 WBC (Bld)56.8 %.[facility] CenterNo Panel InformationOrdered By: Conner Griffith on 22-46-9463Kiprgftat GFR (CKD-EPI)> 60.0 mL/MinAdena Fayette Medical CenterPharmacy Creatinine Clearance (Chem98.01[facility] CenterNucleated erythrocytes [Presence] in Blood by Automated countOrdered By: Conner Griffith on 02-15-2023 Nucleated RBC Auto Ql (Bld)0.2 /100{WBC}0-0.5FHighland District Hospital Platelet mean volume Auto (Bld) [Entitic vol]Ordered By: Conner Griffith on 84-92-6123Mtknqazk mean volume (Bld) [Entitic vol]7.3 fL6.3-10.7FHighland District HospitalPlatelet poor plasma international normalized ratio (INR) by coagulation assay (relatOrdered By: Conner Griffith on 24-82-3339RXP Coag (PPP) [Relative time]1.0 {INR}[facility] CenterComment on above:INR Therapeutic Range A) Pre- and Peroperative OAT started two weeks before surgery. NOT HIP SURGERY: 1.5 - 2.5 HIP SURGERY: 2 - 3B) Primary and secondary prevention of venous THROMBOSIS: 2 - 3C) Active venous thrombosis, pulmonary embolismand prevention of recurrent venous thrombosis: 2 - 3D) Prevention of arterial thromboembolismincluding patients with mechanical heart valves: 3 - 4.5Platelets Auto (Bld) [#/Vol]Ordered By: Conner Griffith on [id number] (Bld) [#/Vol] 385 10*3/[id number] Fayette Medical CenterPotassium [Moles/volume] in Serum or PlasmaOrdered By: Conner Griffith on [id number] [Moles/Vol]3.9 mmol/L3.5-5.1FHighland District HospitalProtein [Mass/volume] in Serum or PlasmaOrdered By: Conner Griffith on [id number] [Mass/Vol]7.3 g/dL6.4-8.9 [facility] Medical CenterRBC Auto (Bld) [#/Vol]Ordered By: Conner Griffith on 23-60-2302OWG (Bld) [#/Vol]4.43 10*6/uL3.60-5.00[facility] Hospitalerum or plasma albumin/globulin mass ratioOrdered By: Conner Griffith on 60-54-5008Ildnknu/Globulin [Mass ratio]1.4 {ratio}[facility] Hospitalerum or plasma anion gap determinationOrdered By: Conner Griffith on 69-92-0733Dsgmz gap [Moles/Vol]12.6 mmol/L6.0-15.0[facility] Hospitalerum or plasma non-glucuronidated bilirubin measurement (mass/volume) Ordered By: Conner Griffith on 89-63-0677Vwqumbujm.indirect [Mass/Vol]0.4 mg/dL [facility] Hospitalodium [Moles/volume] in Serum or PlasmaOrdered By: Conner Griffith on 99-70-9821Qupgco [Moles/Vol]140 mmol/B038-490EsfezdtxuAdena Fayette Medical CenterUrea nitrogen [Mass/volume] in Serum or PlasmaOrdered By: Conner Griffith on 78-42-7276Aqxi nitrogen [Mass/Vol]14 mg/dL7-25Adena Fayette Medical CenterWBC Auto (Bld) [#/Vol]Ordered By: Conner Griffith on 25-20-9860QOE (Bld) [#/Vol]5.2 10*3/uL3.8-11.6FHighland District HospitalMG MAMM SCREEN 3D MACARIO CADon 37-11-1574NT MAMM SCREEN 3D MACARIO [facility] URINE PROFILEon 77-67-4320Gwilrntzo Ql (U)NegativeNormalNEGATIVEMount St. Mary HospitalComment on above:Performed By: #### ERUR ####[facility] [address] [place] [address]Dr. Margotlan ChangClarity (U) CLEARNormalCLEARMount St. Mary HospitalComment on above:Performed By: #### ERUR ####[facility] Sodmgztrpz[address] [place] [address]Dr. Tadeo ChangColor (U)YELLOWNormalYELLOWMount St. Mary HospitalComment on above: Performed By: #### ERUR ####[facility] Fpswfsmlph[address] [place] [address]Dr. Tadeo ChangERUAHDA micrscopic examination will be performed if indicated.NormalMount St. Mary HospitalComment on above:Performed By: #### ERUR ####[facility] Fxtmrqwqln69[address] [place] [address]Dr. Tadeo ChangGlucose Ql (U)NegativeNormalNEGATIVEMount St. Mary Hospital Comment on above:Performed By: #### ERUR ####[facility] Gtijnsuvtl[address] [place], [place] [address]Dr. Yilan ChangHemoglobin Ql (U)TRACE-INTACT AbnormalNEGATIVEThe Lanett HospitalComment on above:Performed By: #### ERUR ####[facility] Rzuyndmqgi74[address] [place], [place] [address]Dr. Yilan ChangKetones Ql (U)NegativeNormalNEGATIVEThe Lanett HospitalComment on above:Performed By: #### ERUR ####[facility] Yfgjbrpsfd[address] [place], [place] [address]Dr. Yilan ChangLEUKOCYTESNegativeNormalNEGATIVEFirelands Regional Medical Center South Campus HospitalComment on above:Performed By: #### ERUR ####[facility] Axnoajjwjn84299[address] [place], [place] [address]Dr. Yilan ChangNitrite Ql (U) NegativeNormalNEGATIVEThe Lanett HospitalComment on above:Performed By: #### ERUR ####[facility] Gxjiucllvj298[address] [place], [place] [address]Dr. Tadeo ChangpH (U)6.0 [pH]Normal5-9The [facility]ett HospitalComment on above:Performed By: #### ERUR ####[facility] Phaguuoqie3667[address] [place], [place] [address]Dr. Yinicole ChangSPEC GRAVITY>=1.030Abnormal 1.005-<=1.025The [facility]ett HospitalComment on above:Performed By: #### ERUR ####[facility] Hthiypziej[address] [place], [place] [address]Dr. Yinicole SmythUA PROTEINNegativeNormalNEGATIVE/ TRACEThe Lanett HospitalComment on above:Performed By: #### ERUR ####[facility] Inxpnrrgwh679[address] [place], [place] [address]Dr. Margotlan HajaUR MICRO INDNOT INDICATEDNormalThe Lanett HospitalComment on above:Performed By: #### ERUR ####[facility] Qlrbxxogqq784[address] [place], [place] [address]Dr. Yilan ChangUrobilinogen Qn (U)0.2 {Benito'U}/dLNormal0.2 - 1.0[facility]. Mary HospitalComment on above: Performed By: #### ERUR ####[facility] Dnpsbxgbnz2955[address] [place], [place] [address]Dr. Tadeo ChangXR ABD FLAT UP_PA Kasey 29-60-7814NE ABD FLAT UP_PA CHNormalThe [facility] CenterAMYLASEon 53-98-6146Azqtbtj [Catalytic activity/Vol]63 U/TDpcdxy85-915Xde [facility] CenterComment on above:Performed By: #### KEITH, VIJI, CMP ####[facility] Kurvhbduju505[address] [place], [place] [address]Dr. Tadeo SmythCBC AUTO DIFFon 94-09-5589QSNA #0.0 103/ulNormal0.0-0.1The [facility] CenterComment on above:Performed By: #### CBC ####[facility] Pruecwfspk3030[address] [place], [place] [address]Dr. Tadeo ChangBasophils/100 WBC (Bld)0.4 %Normal0.2-2.0[facility] Mary HospitalComascension borgess hospital on above:Performed By: #### CBC ####[facility] Azverrqjuz984197 [address] [place], [place] [address]Dr.Margotlan ChangEO #0.2 103/ulNormal0.0-0.7The [facility] CenterComascension borgess hospital on above:Performed By: #### CBC ####[facility] Bihunltmgi6545[address] [place], [place] [address]Dr.Tadeo ChangEosinophils/100 WBC (Bld)2.8 %Normal0.9-7.0The [facility] CenterComment on above:Performed By: #### CBC ####[facility] Iaeytkgwye3355[address] [place], [place] [address]Dr.Tadeo ChangErythrocyte distribution width (RBC) [Ratio]13.2 %Normal 11.0-15.0The [facility] Springfieldment on above:Performed By: #### CBC ####[facility] Jahobqnual637[address] [place], [place] [address]Dr. Tadeo ChangHematocrit (Bld) [Volume fraction]42.6 %Mjefvs38.0-48.0The [facility] CenterComment on above:Performed By: #### CBC ####[facility] Vyyauuzvxa8[address] [place], [place] [address]Dr.Tadeo SmythHemoglobin (Bld) [Mass/Vol]13.6 g/iAXtmiik78.0-16.0The [facility] CenterComment on above: Performed By: #### CBC ####[facility] Ttjiaustbb3334[address] [place], [place] [address]Dr.Tadeo SmythIG #0.02 10e3/ulNormal0.00-0.03The [facility] CenterComment on above:Performed By: #### CBC ####[facility] Htexblzouc647[address] [place], [place] [address]Dr.Tadeo SmythIG %0.3 %Normal 0.0-0.5The [facility] CenterComment on above:Performed By: #### CBC ####[facility] Wklzqtjcad931[address] [place], [place] [address]Dr.Tadeo SmythLYMPH #2.2 103/ulNormal1.2-3.8The [facility] CenterComment on above:Performed By: #### CBC ####[facility] Reuuysgmzk555[address] [place], [place] [address]Dr.Tadeo SmythLymphocytes/100 WBC (Bld)32.1 %Xyrxcc81.5-60.0The [facility] CenterComment on above:Performed By: #### CBC ####[facility] Fssikdbyqe616[address] [place], [place] [address]Dr.Tadeo SmythMANUAL DIFF REQ NONormalThe [facility] CenterComment on above:Performed By: #### CBC ####[facility] Azuewgdrhr1235[address] [place], [place] [address]Dr. Tadeo SmyhtMOUNT SAINT [facility] (RBC) [Entitic mass]29.6 mwBmzkvf62.7-34.0The [facility] Comment on above:Performed By: #### CBC ####[facility] Dxylcagsad185[address] [place], [place] [address]Dr.Tadeo HuitronHC (RBC) [Mass/Vol]31.9 g/dL Fcfmnb84.9-35.2The [facility] CenterComment on above:Performed By: #### CBC ####[facility] Obutnqsbqa997[address] [place], [place] [address]Dr. Tadeo SmythMCV (RBC) [Entitic vol]92.6 vMIbtkmb85.0-99.0The [facility] Comment on above:Performed By: #### CBC ####[facility] Gzhpbqlvai020[address] [place], [place] [address]Dr.Tadeo SmythMONO #0.2 103/ulCritically low 0.3-0.8The [facility] CenterComment on above:Performed By: #### CBC ####[facility] Gagykfvyvr9700[address] [place], [place] [address]Dr.Tadeo Smyth Monocytes/100 WBC (Bld)3.2 %Normal1.7-12.0The [facility] CenterComment on above: Performed By: #### CBC ####[facility] Byhcxdhnlb5664[address] [place], [place] [address]Dr.Tadeo SmythNEUT #4.2 103/ulNormal1.4-6.5The [facility] HospitalComment on above:Performed By: #### CBC ####[facility] Hzyoaiguke676[address] [place], [place] [address]Dr.Tadeo SmythNeutrophils/100 WBC (Bld)61.2 %Lrtcuu82.0-75.0The [facility] HospitalComment on above:Performed By: #### CBC ####[facility] Cirutadzkh755[address] [place], [place] [address]Dr.Tadeo SmythPlatelet mean volume (Bld) [Entitic vol]9.0 fLCritically low 9.5-13.5The [facility] HospitalComment on above:Performed By: #### CBC ####[facility] Wlrptzpsis[address] [place], [place] [address]Dr. Tadeo ZljlvTPR992 103/hnKbpczy311-624Vkp [facility] CenterComment on above: Performed By: #### CBC ####[facility] Bmvzvlrvqy[address] [place] [address]Dr.Tadeo ChangRBC4.60 106/ulNormal4.20-5.40The [facility] CenterComment on above:Performed By: #### CBC ####[facility] Cbqbjrpsgg[address] [place] [address]Dr.Tadeo SmythWBC6.9 103/ul Normal4.0-11.0The [facility] CenterComment on above:Performed By: #### CBC ####[facility] Dcqmvyhtwa[address] [place] [address]Dr. Tadeo HajaLIPASEon 23-89-6538Umanbx [Catalytic activity/Vol]100.0 U/LNormal 73.0-393.0The [facility] CenterComment on above:Performed By: #### LIPA, VIJI, CMP ####[facility] Onpophxfph17[address] [place], [place] [address]Dr. Tadeo SmythPROF 14(COMP METB)on 39-10-1522Cjthmqk [Mass/Vol]3.5 g/dLNormal 3.4-5.0The [facility] CenterComment on above:Performed By: #### LIPA, VIJI, CMP ####[facility] Flivzeysra3264[address] [place], [place] [address]Dr. Tadeo SmythAlbumin/Globulin [Mass ratio]0.9 {ratio}NormalThe [facility] Comment on above:Performed By: #### LIPA, VIJI, CMP ####[facility] Qwbrijhtqp275[address] [place], [place] [address]Dr. Tadeo ChangALP [Catalytic activity/Vol]166 U/LCritically plun53-882Qfx [facility] CenterComment on above: Performed By: #### LIPA, VIJI, CMP ####[facility] Pbaycqmwrb9[address] [place], [place] [address]Dr. Tadeo ChangALT [Catalytic activity/Vol]25 U/L Hecvfb52-06Lhv [facility] CenterComment on above:Performed By: #### LIPA, VIJI, CMP ####[facility] Ztdantrjlt3801[address] [place], [place] [address]Dr. Yilan ChangAnion gap [Moles/Vol]12.4 mmol/LNormalThe [facility] CenterComment on above:Performed By: #### VIJI PARKER, CMP ####[facility] [address]vjjpkt[address] [place] [address]Dr. Yilan ChangAST [Catalytic activity/Vol] 18 U/LUiuvbj07-37Rtg [facility] CenterComment on above:Performed By: #### VIJI PARKER, CMP ####[facility] Nhufmlgtsc8710[address] [place], [place] [address]Dr. Yilan ChangBilirubin [Mass/Vol]0.3 mg/dLNormal0.2-1.0The [facility] CenterComment on above:Performed By: #### VIJI PARKER, CMP ####[facility] Ctohirbxue2412[address] [place], [place] [address]Dr. Yilan ChangCalcium [Mass/Vol]9.1 mg/dLNormal8.5-10.1The [facility] CenterComment on above:Performed By: #### VIJI PARKER, CMP ####[facility] Pvswznfbet2577[address] [place], [place] [address]Dr. Yilan ChangChloride [Moles/Vol]104 mmol/LNormal 98-107The [facility] CenterComment on above:Performed By: #### VIJI PARKER, CMP ####[facility] Yvlrdikxmv270[address] [place], [place] [address]Dr. Yilan ChangCO2 [Moles/Vol]25.0 mmol/LFqzryv75.0-32.0The [facility] CenterComment on above:Performed By: #### VIJI PARKER, CMP ####[facility] Jdoeqxvibk5512[address] [place], [place] [address]Dr. Yilan ChangCreatinine [Mass/Vol]0.87 mg/dLNormal0.55-1.02The [facility] CenterComment on above:Performed By: #### VIJI PARKER, CMP ####[facility] Ytvdrdlqcw[address] [place], [place] [address]Dr. Yilan ChangEGFR-AF DJIBOUTIAN>60Normal>=60The [facility] Comment on above:Performed By: #### VIJI PARKER, CMP ####[facility] Pfxbttnvkj[address] [place] [address]Dr. Yilan ChangEGFR-NON AF DJIBOUTIAN>60Normal>=60The [facility] CenterComment on above:Performed By: #### VIJI PARKER, CMP ####[facility] Muqxjymumo70[address] [place] [address]Dr. Yilan ChangGlobulin (S) [Mass/Vol]3.9 g/dLNormalThe [facility] CenterComment on above:Performed By: #### VIJI PARKER, CMP ####[facility] Wcwkqjkczr[address] [place] [address]Dr. Yilan ChangGlucose [Mass/Vol]169 mg/dLCritically kxnq60-875Yeb [facility] CenterComment on above: Performed By: #### VIJI PARKER, CMP ####[facility] Ymodtcxkus[address] [place] [address]Dr. Yilan ChangPotassium [Moles/Vol]3.4 mmol/L Critically low3.5-5.1The [facility] CenterComment on above:Performed By: #### VIJI PARKER, CMP ####[facility] Myarfgxliz262[address] [place], [place] [address]Dr. Yilan ChangProtein [Mass/Vol]7.4 g/dLNormal6.4-8.2The [facility] CenterComment on above:Performed By: #### VIJI PARKER, CMP ####[facility] Jpqhainwlm[address] [place] [address]Dr. Yilan ChangSodium [Moles/Vol]138 mmol/GBlwgps037-677Zks [facility] CenterComment on above: Performed By: #### VIJI PARKER, CMP ####[facility] Isrzfwaxni1424[address] [place], [place] [address]Dr. Yilan ChangUrea nitrogen [Mass/Vol]23.0 mg/dL Critically high7.0-18.0The [facility] CenterComment on above:Performed By: #### VIJI PARKER, CMP ####[facility] Lutncdtaqu327[address] [place], [place] [address]Dr. Tadeo HajaUrea nitrogen/Creatinine [Mass ratio]26.4 mg/mgNormal The [facility] CenterComment on above:Performed By: #### LIPA, VIJI, CMP ####[facility] Uehdplpmgz20[address] [place], [place] [address]Dr. Margotnicole HajaAMYLASEon 40-34-3338Sycftjk [Catalytic activity/Vol]40 U/LNormal 25-115The [facility] CenterComment on above:Performed By: #### LIPA, MG, CMP, VIJI ####[facility] Gnvbchlmlo7[address] [place], [place] [address]Dr. Tadeo HajaCBC AUTO DIFFon 57-14-0311NRSV #0.0 103/ulNormal0.0-0.1The [facility] CenterComment on above:Performed By: #### CBC ####[facility] Jjbbvjpqgs7[address] [place], [place] [address]Dr.Tadeo HajaBasophils/100 WBC (Bld)0.5 %Normal0.2-2.0The [facility] CenterComment on above:Performed By: #### CBC ####[facility] Ncywtabbtk6965[address] [place], [place] [address]Dr.Tadeo ChangEO #0.1 103/ulNormal0.0-0.7The [facility] on above:Performed By: #### CBC ####[facility] Enqnkszelb6745[address] [place], [place] [address]Dr.Tadeo ChangEosinophils/100 WBC (Bld)2.8 %Normal 0.9-7.0The [facility] CenterComment on above:Performed By: #### CBC ####[facility] Bbdubugses9748[address] [place], [place] [address]Dr.Tadeo Smyth Erythrocyte distribution width (RBC) [Ratio]13.3 %Inihpg02.0-15.0The [facility] CenterComment on above:Performed By: #### CBC ####[facility] Tywvfwulbm201[address] [place], [place] [address]Dr.Tadeo SmythHematocrit (Bld) [Volume fraction]35.6 %Critically low36.0-48.0The [facility] CenterComment on above:Performed By: #### CBC ####[facility] Wfaivxtldh2100[address] [place], [place] [address]Dr.Tadeo SmythHemoglobin (Bld) [Mass/Vol]11.3 g/dL Critically low12.0-16.0The [facility] CenterComment on above:Performed By: #### CBC ####[facility] Frrdtyqwgm6868[address] [place], [place] [address]Dr. Tadeo SmythIG #0.01 10e3/ulNormal0.00-0.03The [facility] CenterComment on above: Performed By: #### CBC ####[facility] Iaxfnnkpnu1165[address] [place], [place] [address]Dr.Tadeo SmythIG %0.2 %Normal0.0-0.5The [facility] CenterComment on above:Performed By: #### CBC ####[facility] Kmitaoxval8468[address] [place], [place] [address]Dr.Tadeo SmythLYMPH #1.5 103/ulNormal1.2-3.8The [facility] CenterComment on above:Performed By: #### CBC ####[facility] Aokvrfprlo7555[address] [place], [place] [address]Dr. Tadeo SmythLymphocytes/100 WBC (Bld)34.9 %Qpqkem36.5-60.0The [facility] Comment on above:Performed By: #### CBC ####[facility] Anhxkucxzu9[address] [place], [place] [address]Dr.Tadeo SmythMANUAL DIFF REQNONormalThe [facility] CenterComment on above:Performed By: #### CBC ####[facility] Lcxnllfssa9901[address] [place], [place] [address]Dr.Tadeo SmythMOUNT [facility]INT [facility] (RBC) [Entitic mass]28.8 djYopyau59.7-34.0The [facility] CenterComment on above: Performed By: #### CBC ####[facility] Dixtdhsctc7460[address] [place], [place] [address]Dr.Tadeo SmythMCHC (RBC) [Mass/Vol]31.7 g/dLNormal 29.9-35.2The [facility] CenterComment on above:Performed By: #### CBC ####[facility] [address]msseberwk[address] [place] [address]Dr. Tadeo SmythMCV (RBC) [Entitic vol]90.8 xLYzpfwk29.0-99.0The [facility] Comment on above:Performed By: #### CBC ####[facility] Xknxogjkfx555[address] [place], [place] [address]Dr.Tadeo SmythMONO #0.3 103/ulNormal0.3-0.8 The [facility] CenterComment on above:Performed By: #### CBC ####[facility] Wcizhmdcub330[address] [place], [place] [address]Dr.Tadeo Smyth Monocytes/100 WBC (Bld)6.9 %Normal1.7-12.0The [facility] CenterComment on above: Performed By: #### CBC ####[facility] Maforymhvd420[address] [place], [place] [address]Dr.Tadeo SmythNEUT #2.4 103/ulNormal1.4-6.5The [facility] CenterComment on above:Performed By: #### CBC ####[facility] Agjtxkefub4360[address] [place], [place] [address]Dr.Tadeo SmyhtNeutrophils/100 WBC (Bld)54.7 %Wdrydb75.0-75.0The [facility] CenterComment on above:Performed By: #### CBC ####[facility] Xbxznvpfsl6865[address] [place], [place] [address]Dr.Tadeo SmythPlatelet mean volume (Bld) [Entitic vol]8.9 fLCritically low 9.5-13.5The [facility] CenterComment on above:Performed By: #### CBC ####[facility] Abgeenwbng9[address] [place], [place] [address]Dr. Tadeo KhobaOVN725 103/lkDsfxga020-652Eub [facility] CenterComment on above: Performed By: #### CBC ####[facility] Fplojcruxh[address] [place] [address]Dr.Tadeo SmythRBC3.92 106/ulCritically low4.20-5.40The [facility] CenterComment on above:Performed By: #### CBC ####[facility] Mrvhlrzvll46[address] [place] [address]Dr.Tadeo SmythWBC4.4 103/ul Normal4.0-11.0The [facility] CenterComment on above:Performed By: #### CBC ####[facility] Ubedhwveno8[address] [place], [place] [address]Dr. Tadeo SmythH PYLORI ANTIBODY IGGon 11-02-2022H. PYLORI IGG ABS0.12 Index Value Normal0.00-0.79The [facility] on above:Result Comment: Negative <0.80 Equivocal 0.80 - 0.89 Positive >0.89Performed By: #### HPYLLC ####[facility] Zvdxchuynh[address] [place], [place] [address]Dr. Tadeo Smyth LIPASEon 43-64-7069Oaygmq [Catalytic activity/Vol]58.0 U/LCritically low 73.0-393.0The [facility] CenterComment on above:Performed By: #### LIPA, MG, CMP, VIJI ####[facility] Rahxmccgnf[address] [place], [place] [address]Dr. Tadeo SmythMAGNESIUMon 22-62-5860Gcexlason [Mass/Vol]1.8 mg/dLNormal 1.8-2.4The [facility] CenterComascension [facility]org[facility] hospital on above:Performed By: #### LIPA, MG, CMP, VIJI ####[facility] Imqydkxnju830[address] [place], [place] [address]Dr. Tadeo SmythPROF 14(COMP METB)on 30-69-7799Wvmxcgx [Mass/Vol]3.2 g/dLCritically low3.4-5.0The [facility] CenterComment on above:Performed By: #### LIPA, MG, CMP, VIJI ####[facility] Uxeztfszji7934[address] [place], [place] [address]Dr. Yilan ChangAlbumin/Globulin [Mass ratio]1.0 {ratio}NormalThe [facility] CenterComment on above:Performed By: #### LIPA, MG, CMP, VIJI ####[facility] Mpvfqbcvtc[address] [place] [address]Dr. Yilan ChangALP [Catalytic activity/Vol]138 U/LCritically jgku43-137Pnn [facility] CenterComment on above:Performed By: #### LIPA, MG, CMP, VIJI ####[facility] Ajaynnlvga[address] [place] [address]Dr. Yilan ChangALT [Catalytic activity/Vol]22 U/HPlkwpk89-03Hui [facility] CenterComment on above:Performed By: #### LIPA, MG, CMP, VIJI ####[facility] Mduoriwmhr47[address] [place] [address]Dr. Yilan ChangAnion gap [Moles/Vol]10.0 mmol/LNormal The [facility] CenterComment on above:Performed By: #### LIPA, MG, CMP, VIJI ####[facility] Xxehulweft35[address] [place], [place] [address]Dr. Yilan ChangAST [Catalytic activity/Vol]18 U/SMjphml50-67Veb [facility] Comment on above:Performed By: #### LIPA, MG, CMP, IVJI ####[facility] Ldbcsmojpn9[address] [place] [address]Dr. Yilan ChangBilirubin [Mass/Vol]0.5 mg/dLNormal0.2-1.0The [facility] CenterComment on above:Performed By: #### LIPA, MG, CMP, VIJI ####[facility] Sshqeumfsf[address] [place] [address]Dr. Yilan ChangCalcium [Mass/Vol]8.9 mg/dLNormal 8.5-10.1The [facility] CenterComment on above:Performed By: #### LIPA, MG, CMP, VIJI ####[facility] Iqkmytmayr259[address] [place], [place] [address]Dr. Yilan ChangChloride [Moles/Vol]107 mmol/NPwnvuo48-608Gzf [facility] Comment on above:Performed By: #### LIPA, MG, CMP, VIJI ####[facility] Sztjkwcymb4[address] [place] [address]Dr. Yilan ChangCO2 [Moles/Vol]28.8 mmol/FXqxght36.0-32.0The [facility] CenterComment on above: Performed By: #### LIPA, MG, CMP, VIJI ####[facility] Uqdowjspbb225[address] [place] [address]Dr. Yilan ChangCreatinine [Mass/Vol]0.74 mg/dL Normal0.55-1.02The [facility] CenterComment on above:Performed By: #### LIPA, MG, CMP, VIJI ####[facility] Rzfebmueoi[address] [place], [place] [address]Dr. Yilan ChangEGFR-AF DJIBOUTIAN>60Normal>=60The [facility] CenterComment on above:Performed By: #### LIPA, MG, CMP, VIJI ####[facility] Haxwbdzcfz75[address] [place], [place] [address]Dr. Yilan ChangEGFR-NON AF DJIBOUTIAN>60Normal>=60The [facility] Springfieldment on above:Performed By: #### LIPA, MG, CMP, VIJI ####[facility] Cvazdldntb57[address] [place], [place] [address]Dr. Yilan ChangGlobulin (S) [Mass/Vol]3.3 g/dLNormal The [facility] CenterComment on above:Performed By: #### LIPA, MG, CMP, VIJI ####[facility] Avvdlwoesk[address] [place], [place] [address]Dr. Yilan ChangGlucose [Mass/Vol]96 mg/bNOrddkb16-992Evp [facility] CenterComment on above:Performed By: #### LIPA, MG, CMP, VIJI ####[facility] Iopaslkacy[address] [place], [place] [address]Dr. Yilan ChangPotassium [Moles/Vol]3.8 mmol/LNormal3.5-5.1The [facility] CenterComment on above: Performed By: #### LIPA, MG, CMP, VIJI ####[facility] Hxrlbrgwkc[address] [place] [address]Dr. Margotlan ChangProtein [Mass/Vol]6.5 g/dLNormal 6.4-8.2The [facility] CenterComment on above:Performed By: #### LIPA, MG, CMP, VIJI ####[facility] Ctgtlobbsg[address] [place] [address]Dr. Margotlan ChangSodium [Moles/Vol]142 mmol/DYtzdca500-948Gmt [facility] Comment on above:Performed By: #### LIPA, MG, CMP, VIJI ####[facility] [address] [place] [address]Dr. Margotlan ChangUrea nitrogen [Mass/Vol]8.0 mg/dLNormal7.0-18.0The [facility] CenterComment on above:Performed By: #### LIPA, MG, CMP, VIJI ####[facility] Cttmcudqp[address] [place], [place] [address]Dr. Margotlan ChangUrea nitrogen/Creatinine [Mass ratio] 10.8 mg/mgNormalThe [facility] CenterComment on above:Performed By: #### LIPA, MG, CMP, VIJI ####[facility] Zxhdacsozk[address] [place], [place] [address]Dr. Tadeo SmythAMMONIAon 74-94-0341Rwckfcy (P) [Moles/Vol]18 umol/LNormal 11-32The [facility] CenterComment on above:Performed By: #### AMM ####[facility] [address] [place] [address]Dr.[facility] AMYLASEon 94-98-7127Ppzjwue [Catalytic activity/Vol]43 U/SRcxnoa56-412Mfu [facility] CenterComment on above:Performed By: #### MG, VIJI, LIPA, CMP ####[facility] Nwvaezikhq[address] [place] [address]Dr. Tadeo SmythCBC AUTO DIFFon 19-95-8614XXWF #0.0 103/ulNormal0.0-0.1The [facility] CenterComment on above:Performed By: #### CBC ####[facility] Nunbzhebsb[address] [place], [place] [address]Dr.Tadeo ChangBasophils/100 WBC (Bld)0.6 %Normal0.2-2.0The [facility] CenterComment on above:Performed By: #### CBC ####[facility] Xpfmzrmsye[address] [place], [place] [address]Dr.Yilan ChangEO #0.1 103/ulNormal0.0-0.7The [facility] CenterComment on above:Performed By: #### CBC ####[facility] Mxlpmqgeqb[address] [place], [place] [address]Dr.Tadeo ChangEosinophils/100 WBC (Bld)1.5 %Normal 0.9-7.0The [facility] CenterComment on above:Performed By: #### CBC ####[facility] Qauqfczxyu6[address] [place], [place] [address]Dr.Margotnicole Smyth Erythrocyte distribution width (RBC) [Ratio]13.5 %Zcsvxp19.0-15.0The [facility] CenterComment on above:Performed By: #### CBC ####[facility] Zkifmcvcwu[address] [place], [place] [address]Dr.Tadeo ChangHematocrit (Bld) [Volume fraction]37.7 %Pkarms58.0-48.0The [facility] CenterComment on above:Performed By: #### CBC ####[facility] Prrpekrjpi[address] [place], [place] [address]Dr.Tadeo ChangHemoglobin (Bld) [Mass/Vol]12.5 g/dL Qokxvn10.0-16.0The [facility] CenterComment on above:Performed By: #### CBC ####[facility] Mzklmnwuyl[address] [place], [place] [address]Dr. Yilan ChangIG #0.02 10e3/ulNormal0.00-0.03The [facility] CenterComment on above: Performed By: #### CBC ####[facility] Tyudqxwpqz532[address] [place], [place] [address]Dr.Yinicole ChangIG %0.4 %Normal0.0-0.5The [facility] CenterComment on above:Performed By: #### CBC ####[facility] Lgpvjgmzoh23[address] [place], [place] [address]Dr.Tadeo SmythLYMPH #1.3 103/ulNormal1.2-3.8The [facility] CenterComment on above:Performed By: #### CBC ####[facility] Lqhzsgjfsv[address] [place], [place] [address]Dr. Tadeo SmythLymphocytes/100 WBC (Bld)23.9 %Vnorup74.5-60.0The [facility] Comment on above:Performed By: #### CBC ####[facility] Eomjtpdnly96[address] [place], [place] [address]Dr.Tadeo SmythMANUAL DIFF REQNONormalThe [facility] CenterComment on above:Performed By: #### CBC ####[facility] Cmxkiywdxa[address] [place], [place] [address]Dr.Margotnicole SmythH (RBC) [Entitic mass]29.8 euMqusej10.7-34.0The [facility] CenterComment on above: Performed By: #### CBC ####[facility] Euhclmnjqv058[address] [place], [place] [address]Dr.Tadeo HajaMCHC (RBC) [Mass/Vol]33.2 g/dLNormal 29.9-35.2The [facility] CenterComment on above:Performed By: #### CBC ####[facility] Rfsegcsbtf[address] [place], [place] [address]Dr. Margotnicole SmythV (RBC) [Entitic vol]89.8 hCKxqjlk79.0-99.0The [facility] Comment on above:Performed By: #### CBC ####[facility] Vtqofurvgw[address] [place], [place] [address]Dr.Tadeo SmythMONO #0.3 103/ulNormal0.3-0.8 The [facility] CenterComment on above:Performed By: #### CBC ####[facility] Kvtekreuok[address] [place], [place] [address]Dr.Tadeo Smyth Monocytes/100 WBC (Bld)5.2 %Normal1.7-12.0The [facility] CenterComment on above: Performed By: #### CBC ####[facility] Dtekapehcl718[address] [place], [place] [address]Dr.Tadeo SmythNEUT #3.6 103/ulNormal1.4-6.5The [facility] CenterComment on above:Performed By: #### CBC ####[facility] Vxfnbelwxs1524[address] [place], [place] [address]Dr.Tadeo SmythNeutrophils/100 WBC (Bld)68.4 %Izycrz18.0-75.0The [facility] CenterComment on above:Performed By: #### CBC ####[facility] Ooxymbdujw18[address] [place], [place] [address]Dr.Tadeo SmythPlatelet mean volume (Bld) [Entitic vol]9.0 fLCritically low 9.5-13.5The [facility] CenterComment on above:Performed By: #### CBC ####[facility] Hlsfetopwi52[address] [place], [place] [address]Dr. Tadeo SmythPLT356 103/zpBqkyfc131-595Rok [facility] CenterComment on above: Performed By: #### CBC ####[facility] Xvtnsulopa89[address] [place], [place] [address]Dr.Tadeo SmythRBC4.20 106/ulNormal4.20-5.40The [facility] CenterComment on above:Performed By: #### CBC ####[facility] Hcakpxhkjn[address] [place], [place] [address]Dr.Tadeo SmythWBC5.2 103/ul Normal4.0-11.0The [facility] CenterComment on above:Performed By: #### CBC ####[facility] Auyoyrufml608[address] [place], [place] [address]Dr. Tadeo ChangCT ABD/PELV W CONon 55-77-2840RT ABD/PELV W CONNormalMount St. Mary HospitalCULTURE BLOODon 46-10-2012Bhjkqfjariq examination of blood, culture Culture Observations: NO GROWTH AT 5 DAYS. Isolate 1 BC_BA_NANormalThe [facility] CenterComment on above:Performed By: #### BLDCX2 ####[facility] [address] [place] [address]Dr. Tadeo SmythPerformed By: #### BLDCX1 ####[facility] [address]qjizzw[address] [place] [id number]. Tadeo ChangCULTURE URINEon 87-42-8918SDOFAVA URINECulture Observations: LIGHT GROWTH OF MIXED GENITAL SINTIA. NO POTENTIAL PATHOGENS SEEN.NormalThe [facility] CenterComment on above:Performed By: #### URCX ####[facility] Lmovyxxfsb[address] [place] [address]Dr. Tadeo HajaCovid-19 PCR (CVDTBH)on 26-20-7713IRLR-CoV-2 (COVID-19) RNA CHEN+probe Ql (Unsp spec)Not detectedNormalNOT DETECTEDThe [facility] CenterComment on above:Result Comment: When diagnostic testing is negative, the [...] test is supported by the Director Of Recruitment of Health and Human Service's declaration that circumstances exist to justify the emergency use of in vitro diagnostics for the detection and/or diagnosis of the virus that causes COVID-19. This EUA will remain in effect for the duration of the COVID-19declaration justifying emergency of IVDs, unless it is terminated or revoked by the FDA (after which the test may no longer be used).Performed By: #### CVDTBH ####[facility] [address]rwrlcabhm[address] [place] [address]Dr. Margotnicole ChangLACTATE/LACTIC ACIDon 26-99-2949Vkreqzi [Moles/Vol]0.7 mmol/LNormal0.4-1.9The [facility] CenterComment on above:Performed By: #### LACT ####[facility] Olaiwotpgs[address] [place] [address]Dr. Tadeo SmythLIPASEon 49-62-9099Mqznfs [Catalytic activity/Vol]58.0 U/LCritically low73.0-393.0The [facility] CenterComment on above:Performed By: #### MG, VIJI, LIPA, CMP ####[facility] M[address]mdvyxrxm[address] [place] [address]Dr. Tadeo SmythMAGNESIUMon 29-30-0016Joywspojz [Mass/Vol]2.0 mg/dLNormal 1.8-2.4The [facility] CenterComment on above:Performed By: #### MG, VIJI, LIPA, CMP ####[facility] Fegjnthaly[address] [place], [place] [address]Dr. Tadeo ChangPROF 14(COMP METB)on 67-10-7345Bqxynbb [Mass/Vol]3.6 g/dLNormal 3.4-5.0The [facility] CenterComment on above:Performed By: #### MG, VIJI, LIPA, CMP ####[facility] Njblvttddd[address] [place], [place] [address]Dr. Tadeo ChangAlbumin/Globulin [Mass ratio]1.0 {ratio}NormalThe [facility] Comment on above:Performed By: #### MG, VIJI, LIPA, CMP ####[facility] Za[address]xgonhe[address] [place] [address]Dr. Yilan ChangALP [Catalytic activity/Vol]164 U/LCritically ruhm58-076Yhx [facility] CenterComment on above: Performed By: #### MG, VIJI, LIPA, CMP ####[facility] [address]knwmlg[address] [place] [address]Dr. Margotlan ChangALT [Catalytic activity/Vol]22 U/L Rnqyof92-72Tvu [facility] CenterComment on above:Performed By: #### MG, VIJI, LIPA, CMP ####[facility] C[address]vrgihmj[address] [place] [address]Dr. Margotlan ChangAnion gap [Moles/Vol]11.5 mmol/LNormalMount St. [facility] Hospital Comment on above:Performed By: #### MG, VIJI, LIPA, CMP ####[facility] [address]fmkdu[address] [place] [address]Dr. Yilan ChangAST [Catalytic activity/Vol]17 U/ZLazguw10-46Lrg [facility] CenterComment on above:Performed By: #### MG, VIJI, LIPA, CMP ####[facility] Kegbdjdrjq[address] [place], [place] [address]Dr. Yilan ChangBilirubin [Mass/Vol]0.4 mg/dLNormal 0.2-1.0The [facility] CenterComment on above:Performed By: #### MG, VIJI, LIPA, CMP ####[facility] Poebobwrlp[address] [place], [place] [address]Dr. Yilan ChangCalcium [Mass/Vol]9.1 mg/dLNormal8.5-10.1The [facility] Comment on above:Performed By: #### MG, VIJI, LIPA, CMP ####[facility] Ixygkvanar[address] [place], [place] [address]Dr. Yilan ChangChloride [Moles/Vol]105 mmol/MRmpzxk82-588Bdc [facility] CenterComment on above:Performed By: #### MG, VIJI, LIPA, CMP ####[facility] Gzeqbeubgf[address] [place], [place] [address]Dr. Yilan ChangCO2 [Moles/Vol]27.6 mmol/LNormal 21.0-32.0The [facility] CenterComment on above:Performed By: #### MG, VIJI, LIPA, CMP ####[facility] Tndclusztj7[address] [place], [place] [address]Dr. Yilan ChangCreatinine [Mass/Vol]0.72 mg/dLNormal0.55-1.02The [facility] CenterComment on above:Performed By: #### MG, VIJI, LIPA, CMP ####[facility] Lvtwwnajcs[address] [place], [place] [address]Dr. Yilan ChangEGFR- AF DJIBOUTIAN>60Normal>=60The [facility] CenterComment on above:Performed By: #### MG, VIJI, LIPA, CMP ####[facility] [address]wwauwzc[address] [place] [address]Dr. Yilan ChangEGFR-NON AF DJIBOUTIAN>60Normal>=60The [facility] CenterComment on above:Performed By: #### MG, VIJI, LIPA, CMP ####[facility] Moyrssshrb[address] [place] [address]Dr. Yilan ChangGlobulin (S) [Mass/Vol]3.6 g/dLNormalThe [facility] CenterComment on above:Performed By: #### MG, VIJI, LIPA, CMP ####[facility] Nemilnxqns[address] [place], [place] [address]Dr. Yilan ChangGlucose [Mass/Vol]100 mg/dL Fitkyu35-505Qem [facility] CenterComment on above:Performed By: #### MG, VIJI, LIPA, CMP ####[facility] Xkgmujyfup[address] [place], [place] [address]Dr. Yilan ChangPotassium [Moles/Vol]4.1 mmol/LNormal3.5-5.1The [facility] CenterComment on above:Performed By: #### MG, VIJI, LIPA, CMP ####[facility] Ekihnuywiv7[address] [place], [place] [address]Dr. Yilan Smyth Protein [Mass/Vol]7.2 g/dLNormal6.4-8.2The [facility] CenterComment on above: Performed By: #### MG, VIJI, LIPA, CMP ####[facility] Mqoqioeeao7[address] [place], [place] [address]Dr. Yilan ChangSodium [Moles/Vol]140 mmol/LNormal 136-145The [facility] CenterComment on above:Performed By: #### MG, VIJI, LIPA, CMP ####[facility] Ulommufecb87[address] [place], [place] [address]Dr. Yilan ChangUrea nitrogen [Mass/Vol]15.0 mg/dLNormal7.0-18.0The [facility] HospitalComment on above:Performed By: #### MG, VIJI, LIPA, CMP ####[facility] [address]ueibpldgw[address] [place] [address]Dr. Yilan ChangUrea nitrogen/Creatinine [Mass ratio]20.8 mg/mgNormalThe [facility] CenterComment on above:Performed By: #### MG, VIJI, LIPA, CMP ####[facility] [address]gsfiley[address] [place] [address]Dr. Yilan ChangUA RANDOM W/MICROSCOPICon 90-95-4753FFYRAQEHJPBWSQefwuruvPDYD SEENMount St. Mary HospitalComascension borgess hospital on above: Performed By: #### UAMIC ####[facility] Ymklsdylzi[address] [place], [place] [address]Dr. Yilan ChangBilirubin Ql (U)NegativeNormalNEGATIVE The [facility] CenterComascension borgess hospital on above:Performed By: #### UAMIC ####[facility] Sfymtagqzo[address] [place], [place] [address]Dr. Yilan ChangCAST NONE SEENNormalNONE SEENMount St. Mary HospitalComascension borgess hospital on above:Performed By: #### UAMIC ####[facility] Xrrdjrispg[address] [place], [place] [address]Dr. Yilan ChangClarity (U)CLEARNormalCLEARMount St. Mary HospitalComascension borgess hospital on above:Performed By: #### UAMIC ####[facility] Vymwzhgbuo[address] [place], [place] [address]Dr. Yilan ChangColor (U)LT. YELLOWNormalYELLOWMount St. Mary HospitalComascension borgess hospital on above:Performed By: #### UAMIC ####[facility] [address]clzxrktk[address] [place], [place] [address]Dr. Yilan ChangCrystals LM Nom (Urine sed)NONE SEENNormalNONE SEENMount St. Mary HospitalComascension borg[facility] hospital on above: Performed By: #### UAMIC ####[facility] Jvefwduubf[address] [place], [place] [address]Dr. Yilan ChangEpithelial cells LM Ql (Urine sed)RARE NormalNONE SEEN /RAREThe [facility] CenterComment on above:Performed By: #### UAMIC ####[facility] Fqneivzdkk97[address] [place], [place] [address]Dr. Yilan ChangGlucose Ql (U)NegativeNormalNEGKettering Health Behavioral Medical Center Comment on above:Performed By: #### UAMIC ####[facility] Qfrnkdjqmu146[address] [place], [place] [address]Dr. Yilan ChangHemoglobin Ql (U)TRACE-LYSED AbnormalNEGATIVEMount St. Mary HospitalComment on above:Performed By: #### UAMIC ####[facility] Hljczavath[address] [place], [place] [address]Dr. Yilan ChangKetones Ql (U)NegativeNormalNEGATIVEMount St. Mary HospitalComment on above:Performed By: #### UAMIC ####[facility] Dslcuogwpp16[address] [place], [place] [address]Dr. Yilan ChangLEUKOCYTESNegativeNormalNEGATIVEMount St. Mary HospitalComment on above:Performed By: #### UAMIC ####[facility] Ecespkdzrm8[address] [place], [place] [address]Dr. Margotlan ChangMUCOUSNONE SEENNormalNONE SEENMount St. Mary HospitalComment on above:Performed By: #### UAMIC ####[facility] Hvexhzwfrk[address] [place], [place] [address]Dr. Tadeo ChangNitrite Ql (U)NegativeNormalNEGKettering Health Behavioral Medical Center Comment on above:Performed By: #### UAMIC ####[facility] Gjdpftryye[address] [place], [place] [address]Dr. Tadeo ChangpH (U)6.0 [pH]Normal5-9Mount [facility]. Mary HospitalComment on above:Performed By: #### UAMIC ####[facility] Ueftbfzbqh[address] [place], [place] [address]Dr. Yilan ChangRBC0-2Normal 0-2[facility] Mary HospitalComment on above:Performed By: #### UAMIC ####[facility] Zzmgxkswpq[address] [place], [place] [address]Dr. Margotlan ChangSPEC GRAVITY1.962Wsoxqp6.005-<=1.025The [facility] CenterComment on above:Performed By: #### UAMIC ####[facility] [address] [place] [id number]. Tadeo SmythUA PROTEINNegativeNormalNEGATIVE/ TRACEThe [facility] CenterComment on above:Performed By: #### UAMIC ####[facility] [address]jeu[address] [place] [address]Dr. Tadeo SmythUrobilinogen Qn (U)0.2 {Benito'U}/dLNormal0.2 - 1.0The [facility] CenterComment on above: Performed By: #### UAMIC ####[facility] [address]gcve[address] [place] [id number]. Tadeo ChangWBC0-2AbnormalNONE SEENThe [facility] CenterComment on above:Performed By: #### UAMIC ####[facility] [address] [place] [address]Dr. Tadeo SmythActivated partial thromboplastin time (aPTT) in platelet poor plasma by coagulation a Ordered By: Conner Griffith on 97-91-8724vPJY Coag (PPP) [Time]30.8 s25.1-36.5 [facility] CenterAlbumin [Mass/volume] in Serum or PlasmaOrdered By: Conner Griffith on 01-77-8099Drkazyu [Mass/Vol]3.6 g/dL3.2-5.5FHighland District HospitalAutomated erythrocytes count in urine sediment (number/area)Ordered By: Conner Griffith on 09-06-2637FFB Auto (Urine sed) [#/Area] 0-1 [HPF]0-4FHighland District HospitalAutomated leukocytes count in urine sediment (number/area)Ordered By: Conner Griffith on 13-95-2140IKA Auto (Urine sed) [#/Area]None seen [HPF]0-4FHighland District HospitalBasophils Auto (Bld) [#/Vol]Ordered By: Conner Griffith on 37-68-1960Vitjuewwn (Bld) [#/Vol]0.0 10*3/uL 0.0-0.2FHighland District HospitalBasophils/100 WBC Auto (Bld)Ordered By: Conner Griffith on 41-97-1191Ktxapfyhv/100 WBC (Bld)0.6 %.[facility] CenterBilirubin Test strip Ql (U)Ordered By: Conner Griffith on 05-83-2038Jvrzkrooe Ql (U)NegativeNegativeAdena Fayette Medical CenterColor Auto (U)Ordered By: Conner Griffith on 65-48-7685Eeyje (U)YellowYellowAdena Fayette Medical CenterCreatinine and Glomerular filtration rate.predicted panel (S/P/Bld)Ordered By: Conner Griffith on 29-70-2871Wrpwpmgntx [Mass/Vol]0.81 mg/dL0.44-1.03[facility] CenterEosinophils Auto (Bld) [#/Vol]Ordered By: Conner Griffith on 29-23-1490Zrocuxsmqmk (Bld) [#/Vol]0.2 10*3/uL0.0-0.45[facility] CenterEosinophils/100 WBC Auto (Bld)Ordered By: Conner Griffith on 10-26-2022 Eosinophils/100 WBC (Bld)3.3 %.[facility] CenterErythrocyte distribution width Auto (RBC) [Ratio]Ordered By: Conner Griffith on 10-26-2022 Erythrocyte distribution width (RBC) [Ratio]14.5 %11.9-15.3FHighland District HospitalEstimated glomerular filtration rate (GFR) non- Ordered By: Conner Griffith on 96-73-4186XCT/1.73 sq M.predicted among non-blacks MDRD (S/P/Bld) [Vol rate/Area]> 60 mL/MinAdena Fayette Medical Center Globulin Calc (S) [Mass/Vol]Ordered By: Conner Griffith on 06-11-4034Tjjwigpj (S) [Mass/Vol]3.2 g/dLAdena Fayette Medical CenterHematocrit Auto (Bld) [Volume fraction]Ordered By: Conner Griffith on 36-39-6529Ewqrzhfnho (Bld) [Volume fraction]36.7 %34.0-46.4FHighland District HospitalHemoglobin [Mass/volume] in BloodOrdered By: Conner Griffith on 46-40-8296Ikoxitydgb (Bld) [Mass/Vol]12.1 g/dL11.8-15.4FHighland District HospitalKetones Auto test strip (U) [Mass/Vol]Ordered By: Conner Griffith on 72-17-5023Rkuodse (U) [Mass/Vol] NegativeNegativeAdena Fayette Medical CenterLaboratory - Chemistry and Chemistry - challengeOrdered By: Conner Griffith on 17-02-0675Ufytrw [Catalytic activity/Vol]37.0 U/Z51-56GlltwzsmdAdena Fayette Medical CenterLaboratory - CoagulationOrdered By: Conner Griffith on 72-19-8505KA Coag (PPP) [Time]10.6 s 9.0-12.9[facility] CenterLaboratory - UrinalysisOrdered By: Conner Griffith on 02-55-1415Itnhjnx casts LM Ql (Urine sed)None seen [LPF]0-8 [facility] CenterLeukocytes [#/volume] corrected for nucleated erythrocytes in Blood by Automated counOrdered By: Conner Griffith on 00-12-5987AWF corrected for nucl RBC Auto (Bld) [#/Vol]6.3 10*3/uL3.8-11.6FHighland District HospitalLymphocytes Auto (Bld) [#/Vol]Ordered By: Conner Griffith on 24-25-8274Nqotwpybyvh (Bld) [#/Vol]1.9 10*3/uL1.00-4.8[facility] CenterLymphocytes/100 WBC Auto (Bld)Ordered By: Conner Griffith on 10-26-2022 Lymphocytes/100 WBC (Bld)29.[address] Auto (RBC) [Entitic mass]Ordered By: Conner Griffith on 91-27-1317PXK (RBC) [Entitic mass]29.3 pg24.7-34.3FHighland District HospitalMCHC Auto (RBC) [Mass/Vol]Ordered By: Conner Griffith on 21-79-2290OYNI (RBC) [Mass/Vol]33.1 g/dL32.0-35.0[facility] CenterMCV Auto (RBC) [Entitic vol]Ordered By: Conner Griffith on 04-34-8639DJV (RBC) [Entitic vol]88.5 kB56-984UexttynviAdena Fayette Medical Center Monocyte distribution width [Entitic volume] in Blood by AutomatedOrdered By: Conner Griffith on 51-23-0240Ldjdhmed distribution width Auto (Bld) [Entitic vol] 16.27 %0.00-20.00[facility] CenterMonocytes Auto (Bld) [#/Vol] Ordered By: Conner Griffith on 84-92-9194Qkbyoiajd (Bld) [#/Vol]0.4 10*3/uL0.0-0.8 [facility] CenterMonocytes/100 WBC Auto (Bld)Ordered By: Conner Griffith on 52-81-7119Fkzgwiesf/100 WBC (Bld)7.1 %.[facility] CenterNeutrophils Auto (Bld) [#/Vol]Ordered By: Conner Griffith on 10-26-2022 Neutrophils (Bld) [#/Vol]3.7 10*3/uL1.8-7.7FHighland District Hospital Neutrophils/100 WBC Auto (Bld)Ordered By: Conner Griffith on 10-26-2022 Neutrophils/100 WBC (Bld)59.3 %.[facility] Medical CenterNitrite Test strip Ql (U)Ordered By: Conner Griffith on 89-06-6457Mdabfae Ql (U)NegativeNegative [facility] CenterNo Panel InformationOrdered By: Conner Griffith on 79-54-7448Tsjytwiab GFR ()> 60 mL/MinAdena Fayette Medical CenterComment on above:GFR estimated reference range: According to KDOQI guidelines, <60 ml/min/1.73m2 is sufficient todiagnose a patient with chronic kidney disease.Pharmacy Creatinine Clearance (Chem93.01[facility] Medical CenterNucleated erythrocytes [Presence] in Blood by Automated count Ordered By: Conner Griffith on 13-23-1662Gmlawaqfu RBC Auto Ql (Bld)0.3 /100{WBC} 0-0.5FHighland District HospitalPlatelet mean volume Auto (Bld) [Entitic vol]Ordered By: Conner Griffith on 17-58-7413Dlgtvpxs mean volume (Bld) [Entitic vol]7.5 fL6.3-10.7FHighland District HospitalPlatelet poor plasma international normalized ratio (INR) by coagulation assay (relatOrdered By: Conner Griffith on 08-64-7109RIU Coag (PPP) [Relative time]0.9 {INR}[facility] CenterComment on above:INR Therapeutic Range A) Pre- and Peroperative OAT started two weeks before surgery. NOT HIP SURGERY: 1.5 - 2.5 HIP SURGERY: 2 - 3B) Primary and secondary prevention of venous THROMBOSIS: 2 - 3C) Active venous thrombosis, pulmonary embolismand prevention of recurrent venous thrombosis: 2 - 3D) Prevention of arterial thromboembolismincluding patients with mechanical heart valves: 3 - 4.5Platelets Auto (Bld) [#/Vol] Ordered By: Conner Griffith on 05-15-8886Jyuroktqw (Bld) [#/Vol]379 10*3/oM553-855 [facility] CenterProtein Auto test strip (U) [Mass/Vol]Ordered By: Conner Griffith on 08-43-4292Xxiuzxr (U) [Mass/Vol]NegativeNegativeAdena Fayette Medical CenterProtein [Mass/volume] in Serum or PlasmaOrdered By: Conner Griffith on 21-22-2773Zvyinwq [Mass/Vol]6.8 g/dL6.1-7.9[facility] Medical CenterRBC Auto (Bld) [#/Vol]Ordered By: Conner Griffith on 22-86-2620FKV (Bld) [#/Vol]4.14 10*6/uL3.60-5.00[facility] Health Tiffin Hospitalerum or plasma alanine aminotransferase measurement without P-5'-P (enzymatic activiOrdered By: Conner Griffith on 34-23-4456DST No additional P-5'-P [Catalytic activity/Vol]18 U/M22-98SzocosuqnMercy Health Tiffin Hospitalerum or plasma albumin/globulin mass ratioOrdered By: Conner Griffith on 98-43-7552Bewxmik/Globulin [Mass ratio]1.1 {ratio}[facility]iffin Hospitalerum or plasma alkaline phosphatase measurement (enzymatic activity/volume)Ordered By: Conner Griffith on 64-35-1300FGT [Catalytic activity/Vol]121 U/A75-14PffxzjqlaMercy Health Tiffin Hospitalerum or plasma anion gap determinationOrdered By: Conner Griffith on 84-05-2886Yubur gap [Moles/Vol]11.3 mmol/L6.0-15.0[facility] Hospitalerum or plasma aspartate aminotransferase measurement (enzymatic activity/volume)Ordered By: Conner Griffith on 35-16-6420SCF [Catalytic activity/Vol]19 U/Q86-67EewgysmfnMercy Health Tiffin Hospitalerum or plasma calcium measurement (mass/volume)Ordered By: Conner Griffith on 00-83-8927Ylcxibg [Mass/Vol]8.9 mg/dL8.2-10.2FAdena Regional Medical Centererum or plasma chloride measurement (moles/volume) Ordered By: Conner Griffith on 56-00-9108Cwctrpvb [Moles/Vol]108 mmol/L95-114 [facility] Hospitalerum or plasma glucose measurement (mass/volume)Ordered By: Conner Griffith on 67-59-0384Phvctvx [Mass/Vol]95 mg/dL 70-100A[facility]ayette Medical CenterComment on above:ADA recommended reference rangeRandom Glucose Reference Range is dependent on time and content of last meal. Glucose of more than 200 mg/dL in a nonstressed, ambulatory subject supports the diagnosisof Diabetes Mellitus.Serum or plasma potassium measurement (moles/volume)Ordered By: Conner Griffith on 57-77-5057Kezwmerok [Moles/Vol]3.4 mmol/L3.5-5.1FAdena Regional Medical Centererum or plasma sodium measurement (moles/volume)Ordered By: Conner Griffith on 53-02-7861Eyorts [Moles/Vol]141 mmol/W151-711SivdmlwakMercy Health Tiffin Hospitalerum or plasma total bilirubin measurement (mass/volume)Ordered By: Conner Griffith on 10-26-2022 Bilirubin [Mass/Vol]0.4 mg/dL0.3-1.2FAdena Regional Medical Centererum or plasma total carbon dioxide measurement (moles/volume)Ordered By: Conner Griffith on 74-48-3765PZ4 [Moles/Vol]25.1 mmol/L22.0-30.0[facility] Serum or plasma urea nitrogen measurement (mass/volume)Ordered By: Conner Griffith on 82-15-3405Qjag nitrogen [Mass/Vol]18 mg/dL9-23[facility] Hospitalpecific gravity Auto test strip (U) [Rel density]Ordered By: Conner Griffith on 02-03-9975Aarabrbn gravity (U) [Rel density]1.0191.001-1.030[facility] Hospitalquamous epithelial cells detection in urine sediment by light microscopyOrdered By: Conner Griffith on 52-73-6254Dwdjnirfjb cells.squamous LM Ql (Urine sed)1-2 [HPF]0-2FHighland District HospitalUrine bacteria detection by automated methodOrdered By: Conner Griffith on 42-57-0577Cmyddxss Auto Ql (U)None seenNone SeenAdena Fayette Medical CenterUrine clarity by refractometry automatedOrdered By: Conner Griffith on 46-29-3960Jgkhksh Refractometry automated (U)ClearCleMercy Health St. Charles HospitalUrine glucose measurement by automated test strip (mass/volume)Ordered By: Conner Griffith on 41-09-3348Ndfrlaz Auto test strip (U) [Mass/Vol]Normal mg/dLNormalAdena Fayette Medical CenterUrine hemoglobin detection by automated test stripOrdered By: Conner Griffith on 48-88-5511Uabywjadrc Auto test strip Ql (U)NegativeNegative [facility] CenterUrine lactic acid measurementOrdered By: Conner Griffith on 45-46-6693Zvffvgm (U) [Moles/Vol]1.0 mmol/L0.5-2.2FHighland District HospitalUrine leukocyte esterase detection by automated test stripOrdered By: Conner Griffith on 61-12-0282Zvdzqrzwh esterase Auto test strip Ql (U)1+Negative [facility] CenterUrobilinogen Auto test strip (U) [Mass/Vol] Ordered By: Conner Griffith on 80-51-1421Degkbrokuvbr (U) [Mass/Vol]Normal mg/dL NormalAdena Fayette Medical CenterWBC Auto (Bld) [#/Vol]Ordered By: Conner Griffith on 06-74-2332KWO (Bld) [#/Vol]6.3 10*3/uL3.8-11.6FHighland District HospitalpH Auto test strip (U)Ordered By: Conner Griffith on 56-33-8428yL (U) 6.5 [pH]5.0-9.0A[facility] Medical CenterCBC AUTO DIFFon 17-78-3687TVUU # 0.0 103/ulNormal0.0-0.1The [facility] CenterComment on above:Performed By: #### CBC ####[facility] Difcivcpad97[address] [place], [place] [address]Dr. Yilan ChangBasophils/100 WBC (Bld)0.4 %Normal0.2-2.0The [facility]tering Health Springfieldment on above:Performed By: #### CBC ####[facility] Kgvngotaff8428[address] [place], [place] [address]Dr.Yilan ChangEO #0.1 103/ulNormal0.0-0.7The [facility] CenterComment on above:Performed By: #### CBC ####[facility] Iuenibjqzt616[address] [place], [place] [address]Dr.Yilan ChangEosinophils/100 WBC (Bld)1.8 %Normal0.9-7.0The [facility]tering Health Springfieldment on above:Performed By: #### CBC ####[facility] Qpbgasqdli5716[address] [place], [place] [address]Dr.Yilan ChangErythrocyte distribution width (RBC) [Ratio]13.8 %Normal 11.0-15.0The [facility] CenterComment on above:Performed By: #### CBC ####[facility] Cvmfrsjftb9[address] [place], [place] [address]Dr. Yilan ChangHematocrit (Bld) [Volume fraction]41.0 %Urtiii86.0-48.0The [facility] Springfieldment on above:Performed By: #### CBC ####[facility] Xdcsfonqgn915[address] [place], [place] [address]Dr.Yilan ChangHemoglobin (Bld) [Mass/Vol]13.3 g/fVDnjdck80.0-16.0The [facility] CenterComment on above: Performed By: #### CBC ####[facility] Mldtwljzwi6600[address] [place], [place] [address]Dr.Tadeo SmythIG #0.01 10e3/ulNormal0.00-0.03The [facility] CenterComment on above:Performed By: #### CBC ####[facility] Mdzrmlafuc725[address] [place], [place] [address]Dr.Margotnicole HajaIG %0.1 %Normal 0.0-0.5The [facility] CenterComment on above:Performed By: #### CBC ####[facility] Zuxjuwsrbd795[address] [place], [place] [address]Dr.Tadeo BallH #1.7 103/ulNormal1.2-3.8The [facility] CenterComment on above:Performed By: #### CBC ####[facility] Dvodczxhwk050[address] [place], [place] [address]Dr.Tadeo Ballhocytes/100 WBC (Bld)24.8 %Qgwyvh36.5-60.0The [facility] CenterComment on above:Performed By: #### CBC ####[facility] Ondhluxzyu3913[address] [place], [place] [address]Dr.Tadeo SmythMANUAL DIFF REQ NONormalThe [facility] CenterComment on above:Performed By: #### CBC ####[facility] Jqcjsqemyd486[address] [place], [place] [address]Dr. Tadeo SmythMOUNT [facility]INT [facility] (RBC) [Entitic mass]29.0 mqVylxed12.7-34.0The [facility] Comment on above:Performed By: #### CBC ####[facility] Gnjggzvhdq1201[address] [place], [place] [address]Dr.Tadeo SmythHC (RBC) [Mass/Vol]32.4 g/dL Iwztmg53.9-35.2The [facility] CenterComment on above:Performed By: #### CBC ####[facility] Xhxmcqxkyr7965[address] [place], [place] [address]Dr. Tadeo SmythV (RBC) [Entitic vol]89.3 nKEhbckx74.0-99.0The [facility] Comment on above:Performed By: #### CBC ####[facility] Otkopamtbk2444[address] [place], [place] [address]Dr.Margotnicole AnkitO #0.5 103/ulNormal0.3-0.8 The [facility] HospitalComment on above:Performed By: #### CBC ####[facility] Bznpooebah5960[address] [place], [place] [address]Dr.Tadeo Smyth Monocytes/100 WBC (Bld)6.9 %Normal1.7-12.0The [facility] HospitalComment on above: Performed By: #### CBC ####[facility] Eajvgdvfbd064197 [address] [place], [place] [address]Dr.Tadeo SmythNEUT #4.5 103/ulNormal1.4-6.5The [facility] HospitalComment on above:Performed By: #### CBC ####[facility] Icxgecgpua088[address] [place], [place] [address]Dr.Tadeo SmythNeutrophils/100 WBC (Bld)66.0 %Abnrlo27.0-75.0The [facility] CenterComment on above:Performed By: #### CBC ####[facility] Xnydpmaxax2945[address] [place], [place] [address]Dr.Tadeo SmythPlatelet mean volume (Bld) [Entitic vol]8.8 fLCritically low 9.5-13.5The [facility] HospitalComment on above:Performed By: #### CBC ####[facility] Rgjctxuapl718[address] [place], [place] [address]Dr. Tadeo SmythPLT384 103/maGtnzgd833-808Ubx [facility] HospitalComment on above: Performed By: #### CBC ####[facility] Talwyhsioy158[address] [place], [place] [address]Dr.Tadeo SmythRBC4.59 106/ulNormal4.20-5.40The [facility] CenterComment on above:Performed By: #### CBC ####[facility] Thrmpqmwhs611[address] [place], [place] [address]Dr.Tadeo ChangWBC6.8 103/ul Normal4.0-11.0The [facility] CenterComment on above:Performed By: #### CBC ####[facility] Ovhhwrwyge855[address] [place], [place] [address]Dr. Tadeo ChangPROF CHEM 8 (BAS METB)on 01-23-4984Jnyhh gap [Moles/Vol]13.8 mmol/L NormalThe [facility] CenterComment on above:Performed By: #### BMP ####[facility] Uhdlytggvn212[address] [place], [place] [address]Dr.Tadeo Smyth Calcium [Mass/Vol]9.6 mg/dLNormal8.5-10.1The [facility] CenterComment on above: Performed By: #### BMP ####[facility] Gitzbambuu085[address] [place], [place] [address]Dr.Yinicole ChangChloride [Moles/Vol]106 mmol/LNormal 98-107The [facility] CenterComment on above:Performed By: #### BMP ####[facility] Jrfwgahiaw79[address] [place], [place] [address]Dr.Yinicole ChangCO2 [Moles/Vol]25.9 mmol/BNrmlto08.0-32.0The [facility] CenterComment on above: Performed By: #### BMP ####[facility] Gxjysizaed777[address] [place], [place] [address]Dr.Yilan ChangCreatinine [Mass/Vol]0.92 mg/dLNormal 0.55-1.02The [facility] CenterComment on above:Performed By: #### BMP ####[facility] Vbxfyehklx980[address] [place], [place] [address]Dr. Yilan ChangEGFR-AF DJIBOUTIAN>60Normal>=60The [facility] CenterComment on above: Performed By: #### BMP ####[facility] Stettlsqzy689[address] [place], [place] [address]Dr.Yilan ChangEGFR-NON AF DJIBOUTIAN>60Normal>=60The [facility] CenterComment on above:Performed By: #### BMP ####[facility] Hugmvcpxfl250697 [address] [place], [place] [address]Dr.Tadeo ChangGlucose [Mass/Vol]98 mg/gFQaizey95-614Rni [facility] CenterComment on above:Performed By: #### BMP ####[facility] [address]cntfvf[address] [place] [address]Dr.Tadeo ChangPotassium [Moles/Vol]3.7 mmol/LNormal3.5-5.1The [facility] CenterComment on above:Performed By: #### BMP ####[facility] Gijdkdnrgh64[address] [place], [place] [address]Dr.Margotlan ChangSodium [Moles/Vol]142 mmol/OPyqhlg942-268Lbx [facility] CenterComment on above: Performed By: #### BMP ####[facility] Taqsgbanpv387[address] [place], [place] [address]Dr.Margotlan ChangUrea nitrogen [Mass/Vol]19.0 mg/dL Critically high7.0-18.0The [facility] CenterComment on above:Performed By: #### BMP ####[facility] Irlsapkrqv140[address] [place], [place] [address]Dr. Margotlan ChangUrea nitrogen/Creatinine [Mass ratio]20.7 mg/mgNoCincinnati VA Medical CenterComment on above:Performed By: #### BMP ####[facility] Gtogsgijyx517[address] [place], [place] [address]Dr.Tadeo ChangXR KUB 1 VIEWon 35-56-0751OO KUB 1 [facility] HospitalAMYLASEon 26-98-8422Jpvnbpg [Catalytic activity/Vol]58 U/BYdyqfh83-500Bvl [facility] CenterComascension borgess hospital on above: Performed By: #### LIPA, CMP, VIJI ####[facility] Gahhistqet237[address] [place], [place] [address]Dr. Tadeo SmythCBC AUTO DIFFon 70-08-8108DGLF #0.0 103/ulNormal0.0-0.1[facility] HospitalComasc[facility] borgess hospital on above:Performed By: #### CBC ####[facility] Cjnnuxbzjc827[address] [place], [place] [address]Dr. Margotlan ChangBasophils/100 WBC (Bld)0.3 %Normal0.2-2.0The [facility] CenterComment on above:Performed By: #### CBC ####[facility] Kcixzpjnnh687[address] [place], [place] [address]Dr.Yilan ChangEO #0.1 103/ulNormal0.0-0.7The [facility] CenterComment on above:Performed By: #### CBC ####[facility] Tfqyazruic5090[address] [place], [place] [address]Dr.Yilan ChangEosinophils/100 WBC (Bld)1.8 %Normal0.9-7.0The [facility] CenterComment on above:Performed By: #### CBC ####[facility] Kdigpilocf2414[address] [place], [place] [address]Dr.Yilan ChangErythrocyte distribution width (RBC) [Ratio]13.7 %Normal 11.0-15.0The [facility] CenterComment on above:Performed By: #### CBC ####[facility] Aejmoezdhv4512[address] [place], [place] [address]Dr. Margotlan ChangHematocrit (Bld) [Volume fraction]37.4 %Tseuld32.0-48.0The [facility] CenterComment on above:Performed By: #### CBC ####[facility] Xafbsyeowk535[address] [place], [place] [address]Dr.Yilan ChangHemoglobin (Bld) [Mass/Vol]12.3 g/vJOtefkl62.0-16.0The [facility] CenterComment on above: Performed By: #### CBC ####[facility] Tuzbjycbkt5033[address] [place], [place] [address]Dr.Yilan ChangIG #0.02 10e3/ulNormal0.00-0.03The [facility] CenterComment on above:Performed By: #### CBC ####[facility] Wumyfwupzs1610[address] [place], [place] [address]Dr.Yilan ChangIG %0.3 %Normal 0.0-0.5The [facility] CenterComment on above:Performed By: #### CBC ####[facility] [address]bw[address] [place] [address]Dr.Tadeo SmythLYMPH #2.2 103/ulNormal1.2-3.8The [facility] CenterComment on above:Performed By: #### CBC ####[facility] Bikrrjgpbs24[address] [place] [address]Dr.Tadeo SmythLymphocytes/100 WBC (Bld)29.3 %Dnbtam08.5-60.0The [facility] CenterComment on above:Performed By: #### CBC ####[facility] Fyxntunkwy[address] [place] [address]Dr.Tadeo SmythMANUAL DIFF REQ NONormalThe [facility] CenterComment on above:Performed By: #### CBC ####[facility] Sxnkgvbkik[address] [place] [address]Dr. Tadeo SmythH (RBC) [Entitic mass]29.0 tnFmvxfp32.7-34.0The [facility] Comment on above:Performed By: #### CBC ####[facility] Tqbbfshbpz712[address] [place], [place] [address]Dr.Tadeo SmythMCHC (RBC) [Mass/Vol]32.9 g/dL Zqzkop39.9-35.2The [facility] CenterComment on above:Performed By: #### CBC ####[facility] Ojeoixmegi812[address] [place], [place] [address]Dr. Tadeo SmythMCV (RBC) [Entitic vol]88.2 kVLdftng26.0-99.0The [facility] Comment on above:Performed By: #### CBC ####[facility] Lgqarwubrr[address] [place] [address]Dr.Tadeo SmythMONO #0.5 103/ulNormal0.3-0.8 The [facility] CenterComment on above:Performed By: #### CBC ####[facility] Yahnmifcgu634[address] [place], [place] [address]Dr.Tadeo Smyth Monocytes/100 WBC (Bld)6.4 %Normal1.7-12.0The [facility] CenterComment on above: Performed By: #### CBC ####[facility] Lmhaivzvle[address] [place] [id number].Margotlan ChangNEUT #4.7 103/ulNormal1.4-6.5The [facility] CenterComment on above:Performed By: #### CBC ####[facility] Yrcihsnkvb7[address] [place] [address]Dr.Tadeo ChangNeutrophils/100 WBC (Bld)61.9 %Yfxpjj38.0-75.0The [facility] HospitalComment on above:Performed By: #### CBC ####[facility] Ayxmdxztxd217[address] [place], [place] [address]Dr.Margotlan ChangPlatelet mean volume (Bld) [Entitic vol]9.0 fLCritically low 9.5-13.5The [facility] CenterComment on above:Performed By: #### CBC ####[facility] Yufdzgpwja890[address] [place], [place] [address]Dr. Yilan OattrNDI881 103/xnAlvjjt383-936Ous [facility] CenterComment on above: Performed By: #### CBC ####[facility] Jqxjfbubtl99[address] [place], [place] [address]Dr.Yilan ChangRBC4.24 106/ulNormal4.20-5.40The [facility] CenterComment on above:Performed By: #### CBC ####[facility] Kkqgvxopct4025[address] [place], [place] [address]Dr.Tadeo ChangWBC7.6 103/ul Normal4.0-11.0The [facility] CenterComment on above:Performed By: #### CBC ####[facility] Nlfsuxbeyu929[address] [place], [place] [address]Dr. Yilan ChangCT ABD/PELV W CONon 88-72-4517CH ABD/PELV W CONNormalThe [facility] URINE PROFILEon 36-72-6547Szzpoleaq Ql (U)SMALLAbnormalNEGATIVEThe [facility] CenterComment on above:Performed By: #### ERUR UMICRO ####[facility] Krmucjsgdy[address] [place], [place] [id number]. Yilan Smyth Clarity (U)CLEARNormalCLEARFirelands Regional Medical Center South Campus HospitalComment on above:Performed By: #### SANDRO BARBOSARO ####[facility] Pesaxxkpfz88[address] [place], [place] [address]Dr. Yilan ChangColor (U)DK. YELLOWNormalYCleveland Clinic [facility] Comment on above:Performed By: #### SANDRO BARBOSARO ####[facility] Ayxjxvrnkv4570[address] [place], [place] [address]Dr. Yilan ChangERUAHDA micrscopic examination will be performed if indicated.NormalMount St. Mary HospitalComment on above:Performed By: #### SANDRO BARBOSARO ####[facility] Qvhdritotz27[address] [place], [place] [address]r. Margotlan ChangGlucose Ql (U) NegativeNormalNEGATIVEMount St. Mary HospitalComment on above:Performed By: #### SANDRO BARBOSARO ####[facility] Fmcuswbqto839[address] [place], [place] [address]Dr. Tadeo ChangHemoglobin Ql (U)SMALLAbnormalNEGKettering Health Behavioral Medical Center Comment on above:Performed By: #### SANDRO BARBOSARO ####[facility] Bpugjiilfj7[address] [place], [place] [address]r. Yilan ChangKetones Ql (U) NegativeNormalNEGATIVEMount St. Mary HospitalComment on above:Performed By: #### SANDRO BARBOSARO ####[facility] Azeskvtbvd497[address] [place], [place] [address]Dr. Yilan ChangLEUKOCYTESNegativeNormalNEGATIVEMount St. Mary HospitalComment on above:Performed By: #### SANDRO BARBOSARO ####[facility] Ixhhrdumgt05[address] [place], [place] [address]Dr. Yilan ChangNitrite Ql (U)NegativeNormal NEGATIVEMount St. Mary HospitalComment on above:Performed By: #### SANDRO BARBOSARO ####[facility] Ipailpowmu906[address] [place], [place] [address]Dr. Yilan ChangpH (U)5.5 [pH]Normal5-9The [facility] CenterComment on above: Performed By: #### KAROL BARBOSA ####[facility] Cwoigipwbb[address] [place] [id number]. Tadeo HajaSPEC GRAVITY>=1.351Adwizuom0.005-<=1.025 The [facility] CenterComment on above:Performed By: #### SANDRO BARBOSARO ####[facility] [address]vazcihqyn[address] [place] [address]Dr. Tadeo SmythUA PROTEINTRACENormalNEGATIVE/ TRACEThe [facility] HospitalComment on above:Performed By: #### KAROL BARBOSA ####[facility] Uzncqinnva[address] [place], [place] [address]r. Tadeo SmythUR MICRO INDINDICATEDNormalThe [facility] CenterComment on above:Performed By: #### KAROL BARBOSA ####[facility] Hjnjvydftx[address] [place], [place] [address]r. Tadeo Smyth Urobilinogen Qn (U)0.2 {Benito'U}/dLNormal0.2 - 1.0The [facility] CenterComment on above:Performed By: #### SANDRO BARBOSARO ####[facility] Irdrplrtxv85[address] [place], [place] [address]Dr. Tadeo SmythLACTATE/LACTIC ACIDon 51-23-6203Dpmprln [Moles/Vol]1.1 mmol/LNormal0.4-1.9The [facility] CenterComment on above:Performed By: #### LACT ####[facility] Sjrlnpuhqq[address] [place], [place] [address]Dr. Tadeo SmythLIPASEon 02-99-7677Rvfiwc [Catalytic activity/Vol]75.0 U/PVnfrbl20.0-393.0The [facility] CenterComment on above: Performed By: #### LIPA, CMP, VIJI ####[facility] Hcjbilmhez[address] [place], [place] [address]Dr. Tadeo SmythPROF 14(COMP METB)on 81-18-8787Bwqbewx [Mass/Vol]3.4 g/dLNormal3.4-5.0The [facility] CenterComment on above:Performed By: #### DIANN PARKER, VIJI ####[facility] R[address]wrqvmepj[address] [place] [address]Dr. Yilan ChangAlbumin/Globulin [Mass ratio]0.9 {ratio}NormalThe [facility] CenterComment on above:Performed By: #### KEITH CMP, VIJI ####[facility] Ssxqlrariy[address] [place] [address]Dr. Yilan ChangALP [Catalytic activity/Vol]164 U/LCritically hjjm20-563Slr [facility] CenterComment on above:Performed By: #### KEITH CMP, VIJI ####[facility] Dlqtekakfu[address] [place] [address]Dr. Yilan ChangALT [Catalytic activity/Vol]29 U/ZThzlpu71-95Xln [facility] CenterComment on above:Performed By: #### KEITH CMP, VIJI ####[facility] Lbpwkiycrm[address] [place], [place] [address]Dr. Yilan ChangAnion gap [Moles/Vol]12.3 mmol/LNormal The [facility] CenterComment on above:Performed By: #### KEITH CMP, VIJI ####[facility] Gfcuwsqthl[address] [place] [address]Dr. Yilan ChangAST [Catalytic activity/Vol]30 U/XGtqfgd07-23Rne [facility] Comment on above:Performed By: #### KEITH CMP, VIJI ####[facility] Jjqobzsvct[address] [place], [place] [address]Dr. Yilan ChangBilirubin [Mass/Vol]0.3 mg/dLNormal0.2-1.0The [facility] CenterComment on above:Performed By: #### KEITH CMP, VIJI ####[facility] Ujiqiupxgn[address] [place], [place] [address]Dr. Yilan ChangCalcium [Mass/Vol]8.9 mg/dLNormal 8.5-10.1The [facility] CenterComment on above:Performed By: #### LIPA, CMP, VIJI ####[facility] Ndmgykbkwp34[address] [place] [address]Dr. Yilan ChangChloride [Moles/Vol]103 mmol/RVgkqsv75-660Mij [facility] Comment on above:Performed By: #### LIPA, CMP, VIJI ####[facility] Roqkqdyvbx[address] [place] [address]Dr. Yilan ChangCO2 [Moles/Vol]27.8 mmol/BVsaooa67.0-32.0The [facility] CenterComment on above: Performed By: #### LIPA, CMP, VIJI ####[facility] Ibignolcqt66[address] [place], [place] [address]Dr. Yilan ChangCreatinine [Mass/Vol]0.89 mg/dLNormal 0.55-1.02The [facility] CenterComment on above:Performed By: #### LIPA CMP, VIJI ####[facility] Aqfljobpbv[address] [place], [place] [address]Dr. Yilan ChangEGFR-AF DJIBOUTIAN>60Normal>=60The [facility] CenterComment on above: Performed By: #### LIPA, CMP, VIJI ####[facility] Fyvrgsmose[address] [place], [place] [address]Dr. Yilan ChangEGFR-NON AF DJIBOUTIAN>60Normal>=60The [facility] CenterComment on above:Performed By: #### LIPA, CMP, VIJI ####[facility] Dqhuqfczjt8[address] [place], [place] [address]Dr. Yilan Smyth Globulin (S) [Mass/Vol]3.9 g/dLNormalThe [facility] CenterComment on above: Performed By: #### LIPA, CMP, VIJI ####[facility] Fmqiipezol35[address] [place], [place] [address]Dr. Yilan ChangGlucose [Mass/Vol]96 mg/lUXyacco01-395 The [facility] CenterComment on above:Performed By: #### LIPA, CMP, VIJI ####[facility] Ovspqqqcws[address] [place], [place] [address]Dr. Yilan ChangPotassium [Moles/Vol]4.1 mmol/LNormal3.5-5.1The [facility] Comment on above:Performed By: #### DIANN PARKER, VIJI ####[facility] Center [address] [place] [address]Dr. Yilan ChangProtein [Mass/Vol]7.3 g/dLNormal6.4-8.2The [facility]ett HospitalComment on above:Performed By: #### DIANN PARKER, VIJI ####[facility] Hkrujrphfc[address] [place] [address]Dr. Yilan ChangSodium [Moles/Vol]139 mmol/LNormal 136-145The [facility] CenterComment on above:Performed By: #### DIANN PARKER, VIJI ####[facility] Gvdulfjugs46[address] [place] [address]Dr. Yilan ChangUrea nitrogen [Mass/Vol]19.0 mg/dLCritically high7.0-18.0The [facility] CenterComment on above:Performed By: #### DIANN PARKER, VIJI ####[facility] Ymtkezwldo[address] [place], [place] [address]Dr. Yilan ChangUrea nitrogen/Creatinine [Mass ratio]21.3 mg/mgNoCincinnati VA Medical CenterComment on above:Performed By: #### DIANN PARKER, VIJI ####[facility] Xidnhkzpyq[address] [place] [address]Dr. Yilan ChangURINE MICROSCOPIC ONLYon 45-90-1180UNXEDVZOOIXVNHczkjoutYLET SEENMount St. Mary HospitalComment on above: Performed By: #### SANDRO BARBOSARO ####[facility] Wguxygtdjb8070 [place], [place]Dr. Margotlan ChangBacteria identified Cx Nom (U)NOT INDICATEDNoCincinnati VA Medical CenterComment on above:Performed By: #### CHELSEY UMICRO ####[facility] Zatmrmbfod[address] [place] [address]Dr. Yilan ChangCASTNONE SEENNormalNONE SEENMount St. Mary HospitalComment on above:Performed By: #### CHELSEY UMICRO ####[facility] Zllskxynmy6478 [place], [place]Dr. Tadeo SmythCrystals LM Nom (Urine sed)SEEN AbnormalNONE SEENThe [facility] CenterComment on above:Performed By: #### CHELSEY UMICRO ####[facility] Elrmxpezcs[address] [place] [phone]. Margotlan ChangEpithelial cells LM Ql (Urine sed)RARENormalNONE SEEN /RARE The [facility] CenterComascension borgess hospital on above:Performed By: #### CHELSEY UMICRO ####[facility] Ijpuxpqjsq[address] [place] [phone]. Tadeo SmythMUCOUSTRACEAbnormalNONE SEENThe [facility] on above: Performed By: #### HCELSEY UMICRO ####[facility] Bkhcdaorhz[address] [place] [address]Dr. Tadeo PeqeaCJD7-6Wkjuca3-7Dbc [facility] Comment on above:Performed By: #### CHELSEY UMICRO ####[facility] Implciejyd[address] [place], [place] [address]Dr. Margotlan ChangWBC0-2Abnormal NONE SEENThe [facility] on above:Performed By: #### CHELSEY UMICRO ####[facility] Zljtajhrqd[address] [place], [place] [phone]. Tadeo SmythCBC AUTO DIFFon 19-86-1991TIXT #0.0 103/ulNormal0.0-0.1The [facility] on above:Performed By: #### CBC ####[facility] Irzjophetd[address] [place], [place] [address]Dr.Tadeo ChangBasophils/100 WBC (Bld)0.3 %Normal0.2-2.0The [facility] Springfieldment on above:Performed By: #### CBC ####[facility] Edbptpsoje[address] [place], [place] [address]Dr.Yilan ChangEO #0.2 103/ulNormal0.0-0.7The [facility] HospitalComment on above:Performed By: #### CBC ####[facility] Olkjncpmqh[address] [place], [place] [address]Dr.Tadeo ChangEosinophils/100 WBC (Bld)1.1 %Normal 0.9-7.0The [facility] HospitalComment on above:Performed By: #### CBC ####[facility] Xfimzgsodj[address] [place], [place] [address]Dr.Tadeo Smyth Erythrocyte distribution width (RBC) [Ratio]13.7 %Dervvc74.0-15.0The [facility] HospitalComment on above:Performed By: #### CBC ####[facility] Vpdusexhyq156[address] [place], [place] [address]Dr.Tadeo ChangHematocrit (Bld) [Volume fraction]41.3 %Rcgudl95.0-48.0The [facility] CenterComment on above:Performed By: #### CBC ####[facility] Zeilqhbusv[address] [place], [place] [address]Dr.Tadeo ChangHemoglobin (Bld) [Mass/Vol]13.6 g/dL Izrwis90.0-16.0The [facility] CenterComment on above:Performed By: #### CBC ####[facility] Nrhjlcwscp[address] [place], [place] [address]Dr. Tadeo SmythIG #0.05 10e3/ulCritically high0.00-0.03The [facility] CenterComment on above:Performed By: #### CBC ####[facility] Qyqyburfge[address] [place], [place] [address]Dr.Tadeo ChangIG %0.4 %Normal0.0-0.5The [facility] HospitalComment on above:Performed By: #### CBC ####[facility] Tjmvjfytqs36[address] [place], [place] [address]Dr.Tadeo ChangLYMPH #2.2 103/ulNormal1.2-3.8The [facility] CenterComment on above:Performed By: #### CBC ####[facility] Csjqxaewgk279[address] [place], [place] [address]Dr. Tadeo SmythLymphocytes/100 WBC (Bld)16.3 %Critically low20.5-60.0The [facility] CenterComment on above:Performed By: #### CBC ####[facility] Fpppsnuudk[address] [place] [address]Dr.Tadeo SmythMANUAL DIFF REQ NONormalThe [facility] CenterComment on above:Performed By: #### CBC ####[facility] Aurpoenhwr69[address] [place], [place] [address]Dr. Tadeo SmythH (RBC) [Entitic mass]28.9 whZqzahz48.7-34.0The [facility] Comment on above:Performed By: #### CBC ####[facility] Yqsegyeijo7[address] [place], [place] [address]Dr.Tadeo SmythHC (RBC) [Mass/Vol]32.9 g/dL Rkwxyv97.9-35.2The [facility] CenterComment on above:Performed By: #### CBC ####[facility] Vplwhrqibw[address] [place], [place] [address]Dr. Tadeo SmythV (RBC) [Entitic vol]87.9 oHAecyni05.0-99.0The [facility] Comment on above:Performed By: #### CBC ####[facility] Scdqiwliub07[address] [place], [place] [address]Dr.Tadeo SmythMONO #0.7 103/ulNormal0.3-0.8 The [facility] CenterComment on above:Performed By: #### CBC ####[facility] Knrhvkwhcj[address] [place], [place] [address]Dr.Tadeo Smyth Monocytes/100 WBC (Bld)5.1 %Normal1.7-12.0The [facility] CenterComment on above: Performed By: #### CBC ####[facility] Yydpzvysin154[address] [place], [place] [address]Dr.Tadeo SmythNEUT #10.3 103/ulCritically high1.4-6.5 The [facility] CenterComment on above:Performed By: #### CBC ####[facility] Gfjbdwhvje7[address] [place] [address]Dr.Tadeo Smyth Neutrophils/100 WBC (Bld)76.8 %Critically high43.0-75.0The [facility] Comment on above:Performed By: #### CBC ####[facility] Qpkgbdllsq5097 [place] [address]Dr.Tadeo SmythPlatelet mean volume (Bld) [Entitic vol]8.8 fLCritically low9.5-13.5The [facility] CenterComment on above: Performed By: #### CBC ####[facility] Pcmpcmzvkk[address] [place], [place] [address]Dr.Tadeo OebdkIIX383 103/hbQvuvcn762-021Yex [facility] CenterComment on above:Performed By: #### CBC ####[facility] Hdwsbsssfm[address] [place], [place] [address]Dr.Tadeo ChangRBC4.70 106/ul Normal4.20-5.40The [facility] CenterComment on above:Performed By: #### CBC ####[facility] Bhzzmloooz8[address] [place], [place] [address]Dr. Tadeo RrniyGYO19.4 103/ulCritically high4.0-11.0The [facility] CenterComment on above:Performed By: #### CBC ####[facility] Rdtkpuifyy[address] [place], [place] [address]Dr.Yilan ChangER URINE PROFILEon 19-33-2608Lwwppriyp Ql (U)NegativeNormalNEGATIVEThe [facility] CenterComment on above:Performed By: #### SANDRO BARBOSARO ####[facility] Awfvjsbqta8[address] [place], [place] [address]Dr. Yilan ChangClarity (U)CLEARNormalCLEARThe [facility] CenterComment on above:Performed By: #### SANDRO BARBOSARO ####[facility] Pzbloksuhg46[address] [place], [place] [address]Dr. Yilan ChangColor (U)LT. YELLOWNormal YELLOWThe [facility] CenterComment on above:Performed By: #### SANDRO BARBOSARO ####[facility] Ejckwqvcwg50[address] [place] [phone]. Yilan ChangERUAHDA micrscopic examination will be performed if indicated.Normal The [facility] CenterComment on above:Performed By: #### SANDRO BARBOSARO ####[facility] Eqkrkcdojf40[address] [place] [phone]. Yilan ChangGlucose Ql (U)NegativeNormalNEGATIVEThe [facility] CenterComment on above:Performed By: #### SANDRO BARBOSARO ####[facility] Coupalhbah[address] [place] [address]Dr. Yilan ChangHemoglobin Ql (U)TRACE-INTACT AbnormalNEGATIVEMount St. Mary HospitalComment on above:Performed By: #### SANDRO BARBOSARO ####[facility] Htllbhanun55[address] [place] [address]Dr. Yilan ChangKetones Ql (U)NegativeNormalNEGATIVEMount St. Mary Hospital Comment on above:Performed By: #### SANDRO BARBOSARO ####[facility] Sqngwzfvoi[address] [place], [place] [address]Dr. Yilan ChangLEUKOCYTES NegativeNormalNEGATIVEMount St. Mary HospitalComment on above:Performed By: #### SANDRO BARBOSARO ####[facility] Zhksgjhndr[address] [place], [place] [address]Dr. Yilan ChangNitrite Ql (U)NegativeNormalNEGKettering Health Behavioral Medical Center Comment on above:Performed By: #### KAROL BARBOSA ####[facility] Jfbvbxikxu5467 [place] [phone]. Yilan ChangpH (U)6.5 [pH] Normal5-9The [facility] CenterComment on above:Performed By: #### SANDRO BARBOSARO ####[facility] Wmxknthsvi2415 [place] [phone]. Yilan ChangSPEC GRAVITY1.043Nzjhob3.005-<=1.025The [facility] CenterComment on above:Performed By: #### KAROL BARBOSA ####[facility] Rqsfoiomle7[address] [place] [address]Dr. Yilan ChangUA PROTEINNegativeNormalNEGATIVE/ TRACEThe [facility] CenterComment on above:Performed By: #### KAROL BARBOSA ####[facility] Qbypdluwyv77[address] [place] [address]Dr. Margotlan ChangUR MICRO INDINDICATEDNormalThe [facility] CenterComment on above: Performed By: #### KAROL BARBOSA ####[facility] Hywhkolhav25[address] [place] [address]Dr. Margotlan HajaUrobilinogen Qn (U)0.2 {Benito'U}/dL Normal0.2 - 1.0The [facility] CenterComment on above:Performed By: #### KAROL BARBOSA ####[facility] Fdubovcwmx20[address] [place] [address]Dr. Tadeo ChangLIPASEon 85-85-8495Qlpjbs [Catalytic activity/Vol]117.0 U/L Lniwiv36.0-393.0The [facility] CenterComment on above:Performed By: #### HSTROPN, CMP, LIPA ####[facility] Iogcdcyfya75[address] [place] [address]Dr. Yilan ChangPROF 14(COMP METB)on 46-77-6303Fcalsun [Mass/Vol]3.5 g/dLNormal3.4-5.0The [facility] CenterComment on above:Performed By: #### HSTROPN, CMP, LIPA ####[facility] Zmdkpgxafj58[address] [place] [address]Dr. Margotlan ChangAlbumin/Globulin [Mass ratio]0.8 {ratio}NormalThe [facility] CenterComment on above:Performed By: #### HSTROPN, CMP, LIPA ####[facility] Fvoviddaia[address] [place] [address]Dr. Margotlan ChangALP [Catalytic activity/Vol]180 U/LCritically msrj40-154Sro [facility] CenterComment on above:Performed By: #### HSTROPN, CMP, LIPA ####[facility] Qafubjfvdu5[address] [place] [address]Dr. Yilan ChangALT [Catalytic activity/Vol]25 U/GUjhfcx79-46Vcr [facility] Comment on above:Performed By: #### HSTROPN, CMP, LIPA ####[facility] Xozigktwpc2[address] [place] [address]Dr. Yilan ChangAnion gap [Moles/Vol]14.4 mmol/LNormalThe [facility] CenterComment on above:Performed By: #### HSTROPN, CMP, LIPA ####[facility] Oiadlksxjq2[address] [place] [address]Dr. Yilan ChangAST [Catalytic activity/Vol]14 U/L Critically jds33-04Okh [facility] CenterComment on above:Performed By: #### HSTROPN, CMP, LIPA ####[facility] Rckzyywwok[address] [place] [address]Dr. Yilan ChangBilirubin [Mass/Vol]0.2 mg/dLNormal 0.2-1.0The [facility] CenterComment on above:Performed By: #### HSTROPN, CMP, LIPA ####[facility] Ddpjhdqzbs44[address] [place] [address]Dr. Yilan ChangCalcium [Mass/Vol]9.4 mg/dLNormal8.5-10.1The [facility] CenterComment on above:Performed By: #### HSTROPN, CMP, LIPA ####[facility] Ifbdixksdn60[address] [place] [address]Dr. Yilan Smyth Chloride [Moles/Vol]107 mmol/NSdwnrb47-724Sov [facility] CenterComment on above: Performed By: #### HSTROPN, CMP, LIPA ####[facility] Gcozvaejnr45[address] [place] [address]Dr. Yilan ChangCO2 [Moles/Vol]23.9 mmol/LNormal 21.0-32.0The [facility] CenterComment on above:Performed By: #### HSTROPN, CMP, LIPA ####[facility] Ndppddakfy55[address] [place] [address]Dr. Yilan ChangCreatinine [Mass/Vol]0.91 mg/dLNormal0.55-1.02The [facility] CenterComment on above:Performed By: #### HSTROPN, CMP, LIPA ####[facility] Gywaysblgp6307 [place] [address]Dr. Yilan ChangEGFR- AF DJIBOUTIAN>60Normal>=60The [facility] CenterComment on above:Performed By: #### HSTROPN, CMP, LIPA ####[facility] Pqxdshajca475[address] [place] [address]Dr. Yilan ChangEGFR-NON AF DJIBOUTIAN>60Normal>=60The [facility] CenterComment on above:Performed By: #### HSTROPN, CMP, LIPA ####[facility] Uyixccfcsh[address] [place], [place] [address]Dr. Yilan ChangGlobulin (S) [Mass/Vol]4.2 g/dLNormalThe [facility] CenterComment on above:Performed By: #### HSTROPN, CMP, LIPA ####[facility] Xygxykrqok[address] [place], [place] [address]Dr. Yilan ChangGlucose [Mass/Vol]101 mg/dL Osoqzg98-828Hps [facility] Springfieldment on above:Performed By: #### HSTROPN, CMP, LIPA ####[facility] Wvsjqlsvut[address] [place], [place] [address]Dr. Yilan ChangPotassium [Moles/Vol]3.3 mmol/LCritically low3.5-5.1The [facility] CenterComment on above:Performed By: #### HSTROPN, CMP, LIPA ####[facility] Mszftstdnd[address] [place], [place] [address]Dr. Yilan ChangProtein [Mass/Vol]7.7 g/dLNormal6.4-8.2The [facility] CenterComment on above:Performed By: #### HSTROPN, CMP, LIPA ####[facility] Hrgicibeut[address] [place] [address]. Yilan ChangSodium [Moles/Vol]142 mmol/VHkkgal097-796Shb [facility] CenterComment on above: Performed By: #### HSTROPN, CMP, LIPA ####[facility] Khygfsfzfs[address] [place] [phone]. Yilan ChangUrea nitrogen [Mass/Vol]17.0 mg/dL Normal7.0-18.0The [facility] CenterComment on above:Performed By: #### HSTROPN, CMP, LIPA ####[facility] Vdtklbtnzc8[address] [place] [phone]. Yilan ChangUrea nitrogen/Creatinine [Mass ratio]18.7 mg/mgNoCincinnati VA Medical CenterComment on above:Performed By: #### HSTROPN, CMP, LIPA ####[facility] Osblxqwala[address] [place] [address]Dr. Tadeo ChangTROPONIN, HIGH SENSITIVITYon 11-85-3915UAHINE77.6 pg/mLNormal4.0-51.3 The [facility] CenterComascension borgess hospital on above:Result Comment: CUT-OFF POINTS HAVE BEEN ESTABLISHED BASED ON THE FOURTH UNIVERSAL DEFINITIONS OF MYOCARDIALINFARCTION. THE UPPER REFERENCE LIMIT (URL) OF TROPONIN, DEFINED THE 99TH PERCENTILE OFcT nI DISTRIBUTION IN A REFERENCE POPULATION, HAS BEEN CONFIRMED THE DECISION THRESHOLDFOR WA DIAGNOSIS.Performed By: #### HSTROPN, CMP, LIPA ####[facility] Cklhjdmeal28[address] [place] [address]Dr. Yilan ChangURINE MICROSCOPIC ONLYon 42-78-5331QEZPMUNYUSQG SEENNormalNONE SEENMount St. Mary HospitalComment on above:Performed By: #### RANDI BARBOSAICRO ####[facility] Zdbquppvna38[address] [place] [phone]. Yilan ChangBacteria identified Cx Nom (U)NOT INDICATEDNoCincinnati VA Medical CenterComment on above: Performed By: #### CHELSEY UMICRO ####[facility] Xpqknpqaqg8874 [place], [place]Dr. Yilan ChangCASTNONE SEENNormalNONE SEENThe [facility] CenterComment on above:Performed By: #### RANDI BARBOSAICRO ####[facility] Ygxwlokuah13[address] [place] [phone]. Tadeo ChangCrystals LM Nom (Urine sed)NONE SEENNormalNONE SEENThe [facility] CenterComment on above: Performed By: #### CHELSEY UMICRO ####[facility] Jdrppbmyjc87[address] [place] [address]Dr. Tadeo ChangEpithelial cells LM Ql (Urine sed)FEW AbnormalNONE SEEN /RAREThe [facility] CenterComment on above:Performed By: #### RANDI BARBOSAICRO ####[facility] Uqhkrbhqwm30[address] [place] [address]Dr. Tadeo SmythMUCOUSMODERATEAbnormalNONE SEENThe [facility] CenterComment on above:Performed By: #### RANDI BARBOSAICRO ####[facility] Ugzhsvxtxf29[address] [place] [address]Dr. Tadeo QsxcpHXU2-9Wkqdtq9-5Hzi [facility] CenterComment on above:Performed By: #### RANDI BARBOSAICRO ####[facility] Wjcrbnqeun[address] [place] [address]Dr. Tadeo ChangWBCNONE SEEN NormalNONE SEENThe [facility] CenterComment on above:Performed By: #### RANDI BARBOSAICRO ####[facility] Bwtivlxewt67[address] [place] [address]Dr. Tadeo ChangXR ABD FLAT UP_PA Kasey 20-71-9817YJ ABD FLAT UP_PA CHNormal [facility] HospitalVC COMP CONSULTATIONon 25-26-4279LZ COMP CONSULTATIONNormal [facility] HospitalVC VENOUS REFLUX MACARIO LMTon 15-58-1600PZ VENOUS REFLUX MACARIO TMercy Health Defiance HospitalXR KUB 1 VIEWon 06-17-1042IE KUB 1 [facility] HospitalUS RUBENS DOP LEG RTon 76-40-3765ZU RUBENS DOP LEG RTMercy Health Defiance HospitalAMYLASEon 19-17-3433Dzjnhjq [Catalytic activity/Vol]64 U/L Phrlvs56-325Esc [facility] on above:Performed By: #### CMP, VIJI, LIPA, CMADM ####[facility] Apomcfvxnk79[address] [place] [address]Dr. Tadeo SmythCARDIAC NORA ADMITon 37-21-4327QM [Catalytic activity/Vol] 127 U/AEqyogk93-644Hhz [facility] on above:Performed By: #### CMP, VIJI, LIPA, CMADM ####[facility] Uldhqhbana49[address] [place] [address]Dr. Tadeo SmythCK.MB [Mass/Vol]1.71 ng/mLNormal<=3.60The [facility] on above:Performed By: #### CMP, VIJI, LIPA, CMADM ####[facility] Wvqkqpfgba8[address] [place] [address]Dr. Tadeo Smyth HZQWJY39.7 pg/mLNormal4.0-51.3The [facility] on above:Result Comment: CUT-OFF POINTS HAVE BEEN ESTABLISHED BASED ON THE FOURTH UNIVERSAL DEFINITIONS OF MYOCARDIALINFARCTION. THE UPPER REFERENCE LIMIT (URL) OF TROPONIN, DEFINED THE 99TH PERCENTILE OFcTnI DISTRIBUTION IN A REFERENCE POPULATION, HAS BEEN CONFIRMED THE DECISION THRESHOLDFOR WA DIAGNOSIS. Performed By: #### CMP, VIJI, LIPA, CMADM ####[facility] Behpgiclmj15[address] [place] [address]Dr. Tadeo SmythMYO23 ng/mLNormal9-82The [facility] on above:Performed By: #### CMP, VIJI, LIPA, CMADM ####[facility] Nhxqgkdfca12[address] [place] [address]Dr. Tadeo SmythCBC AUTO DIFFon 44-59-5458VDCU #0.0 103/ulNormal0.0-0.1The [facility] on above:Performed By: #### CBC ####[facility] Khcxqqqsuk[address] [place], [place] [address]Dr.Tadeo SmythBasophils/100 WBC (Bld)0.4 %Normal0.2-2.0The [facility] CenterComment on above:Performed By: #### CBC ####[facility] Plmsvlccfs137[address] [place], [place] [address]Dr.Margotlan ChangEO #0.1 103/ulNormal0.0-0.7The [facility] CenterComment on above:Performed By: #### CBC ####[facility] Tuyyqoqvvg[address] [place], [place] [address]Dr.Tadeo ChangEosinophils/100 WBC (Bld)1.5 %Normal 0.9-7.0The [facility] CenterComment on above:Performed By: #### CBC ####[facility] Gwykycfubx[address] [place], [place] [address]Dr.Tadeo Smyth Erythrocyte distribution width (RBC) [Ratio]13.5 %Owdell73.0-15.0The [facility] CenterComment on above:Performed By: #### CBC ####[facility] Vsqnbkywde[address] [place], [place] [address]Dr.Tadeo ChangHematocrit (Bld) [Volume fraction]37.0 %Vfblkg05.0-48.0The [facility] CenterComment on above:Performed By: #### CBC ####[facility] Vjfjfgsqba[address] [place], [place] [address]Dr.Tadeo ChangHemoglobin (Bld) [Mass/Vol]12.0 g/dL Qzhnqs81.0-16.0The [facility] CenterComment on above:Performed By: #### CBC ####[facility] Ircbakghnb[address] [place], [place] [address]Dr. Tadeo ChangIG #0.02 10e3/ulNormal0.00-0.03The [facility] CenterComment on above: Performed By: #### CBC ####[facility] Mhszgcslmc[address] [place], [place] [address]Dr.Tadeo ChangIG %0.3 %Normal0.0-0.5The [facility] CenterComment on above:Performed By: #### CBC ####[facility] Emtbbzbauv[address] [place], [place] [address]Dr.Tadeo SmythLYMPH #2.0 103/ulNormal1.2-3.8The [facility] CenterComment on above:Performed By: #### CBC ####[facility] Mitnqulcgf9[address] [place] [address]Dr. Tadeo SmythLymphocytes/100 WBC (Bld)27.9 %Nyhirc92.5-60.0The [facility] Comment on above:Performed By: #### CBC ####[facility] Ufqlceuhqc1435 [place] [address]Dr.Tadeo SmythMANUAL DIFF REQNONormalThe [facility] CenterComment on above:Performed By: #### CBC ####[facility] Nnclfiztpu[address] [place], [place] [address]Dr.Tadeo SmythMCH (RBC) [Entitic mass]28.9 xaKrwwzp40.7-34.0The [facility] CenterComment on above: Performed By: #### CBC ####[facility] Gsspiqyild[address] [place], [place] [address]Dr.Tadeo SmythMCHC (RBC) [Mass/Vol]32.4 g/dLNormal 29.9-35.2The [facility] CenterComment on above:Performed By: #### CBC ####[facility] Vxbkaqqvyp[address] [place], [place] [address]Dr. Tadeo SmythMCV (RBC) [Entitic vol]89.2 uZCzqvxb03.0-99.0The [facility] Comment on above:Performed By: #### CBC ####[facility] Xaidvdoqxg[address] [place], [place] [address]Dr.Tadeo SmythMONO #0.5 103/ulNormal0.3-0.8 The [facility] CenterComment on above:Performed By: #### CBC ####[facility] Lfytrzjvgv[address] [place], [place] [address]Dr.Tadeo Smyth Monocytes/100 WBC (Bld)6.7 %Normal1.7-12.0The [facility] CenterComment on above: Performed By: #### CBC ####[facility] Stkrairumd98[address] [place] [id number].Tadeo SmythNEUT #4.5 103/ulNormal1.4-6.5The [facility] CenterComment on above:Performed By: #### CBC ####[facility] Zoensjhgsw[address] [place], [place] [address]Dr.Tadeo SmythNeutrophils/100 WBC (Bld)63.2 %Oaczss69.0-75.0The [facility] CenterComment on above:Performed By: #### CBC ####[facility] Zhtbyjdteg[address] [place], [place] [address]Dr.Tadeo SmythPlatelet mean volume (Bld) [Entitic vol]9.0 fLCritically low 9.5-13.5The [facility] CenterComment on above:Performed By: #### CBC ####[facility] Pnkxphvpxo[address] [place], [place] [address]Dr. Tadeo ZdxusVIW694 103/hrQfkmpc639-049Dul [facility] CenterComment on above: Performed By: #### CBC ####[facility] Tnthoftetj[address] [place], [place] [address]Dr.Tadeo ChangRBC4.15 106/ulCritically low4.20-5.40The [facility] CenterComment on above:Performed By: #### CBC ####[facility] Tompxipkau[address] [place], [place] [address]Dr.Tadeo SmythWBC7.1 103/ul Normal4.0-11.0The [facility] CenterComment on above:Performed By: #### CBC ####[facility] Fdsxoxdgwj[address] [place], [place] [address]Dr. Tadeo SmythCT ABD/PELV W CONon 20-99-4257FQ ABD/PELV W CONNormalThe [facility] URINE PROFILEon 06-18-5065Jxawwxevh Ql (U)NegativeNormalNEGATIVEThe [facility] CenterComment on above:Performed By: #### ERUR, UMICRO ####[facility] Dxgqgkcccc[address] [place], [place] [id number]. Tadeo Smyth Clarity (U)CLEARNormalCLEARFirelands Regional Medical Center South Campus HospitalComment on above:Performed By: #### CHELSEY UMICRO ####[facility] Lgwofxfhmq[address] [place] [address]Dr. Yilan ChangColor (U)YELLOWNormalYELLOWFirelands Regional Medical Center South Campus HospitalComment on above:Performed By: #### CHELSEY UMICRO ####[facility] Yaqallavep350[address] [place] [address]Dr. Tadeo [facility] HospitalDA micrscopic examination will be performed if indicated.NormalThe [facility]ett HospitalComment on above: Performed By: #### CHELSEY UMICRO ####[facility] Wpdqonujbn37[address] [place] [address]Dr. Tadeo SmythGlucose Ql (U)NegativeNormalNEGATIVEFirelands Regional Medical Center South Campus HospitalComment on above:Performed By: #### CHELSEY UMICRO ####[facility] Inphpebsrj[address] [place], [place] [address]Dr. Tadeo Smyth Hemoglobin Ql (U)TRACE-LYSEDAbnormalNEGATIVEFirelands Regional Medical Center South Campus HospitalComment on above:Performed By: #### CHELSEY UMICRO ####[facility] Ronskcvfhj[address] [place], [place] [address]Dr. Tadeo HajaKetones Ql (U)TRACEAbnormalNEGATIVE [facility] HospitalComment on above:Performed By: #### CHELSEY UMICRO ####[facility] Qlvpiafbtt74[address] [place], [place] [address]Dr. Tadeo SmythLEUKOCYTESNegativeNormalNEGATIVEFirelands Regional Medical Center South Campus HospitalComment on above:Performed By: #### CHELSEY UMICRO ####[facility] Aiqjmbtzjm[address] [place], [place] [address]Dr. Tadeo ChangNitrite Ql (U)NegativeNormal NEGATIVEFirelands Regional Medical Center South Campus HospitalComment on above:Performed By: #### CHELSEY UMICRO ####[facility] Fyyvzgfbok84[address] [place], [place] [address]Dr. Margotnicole ChangpH (U)6.0 [pH]Normal5-9[facility] HospitalComment on above: Performed By: #### SANDRO BARBOSARO ####[facility] Mdsuhcbmnd64[address] [place] [address]Dr. Tadeo SmythSPEC GRAVITY>=1.245Xqvhsvuf6.005-<=1.025 The [facility] CenterComment on above:Performed By: #### RANDI BARBOSAICRO ####[facility] Oakfmhxrsf[address] Tadeo SmythUA PROTEINTRACENormalNEGATIVE/ TRACEThe [facility] CenterComment on above:Performed By: #### SANDRO BARBOSARO ####[facility] Hjgpsdqhyk[address] Tadeo SmythUR MICRO INDINDICATEDNormalThe [facility] CenterComment on above:Performed By: #### SANDRO BARBOSARO ####[facility] Efblyanckf[address] [place], [place] [address]r. Tadeo Smyth Urobilinogen Qn (U)0.2 {Benito'U}/dLNormal0.2 - 1.0The [facility] CenterComment on above:Performed By: #### SANDRO BARBOSARO ####[facility] Iqfisraiyd0678 [place] [address]Dr. Tadeo SmythLACTATE/LACTIC ACIDon 74-20-2801Ulqwtgh [Moles/Vol]1.3 mmol/LNormal0.4-1.9The [facility] CenterComment on above:Performed By: #### LACT ####[facility] Myaouijzah[address] [place], [place] [address]Dr. Tadeo SmythLIPASEon 81-66-4529Qlilqk [Catalytic activity/Vol]120.0 U/OGnjdan30.0-393.0The [facility] CenterComment on above: Performed By: #### CMP, VIJI, LIPA, CMADM ####[facility] Zugavyvhzq[address] [place] [address]Dr. Tadeo SmythPROF 14(COMP METB)on 04-42-8532Ncgqvsn [Mass/Vol]3.8 g/dLNormal3.4-5.0The [facility] CenterComment on above:Performed By: #### CMP, VIJI, LIPA, CMADM ####[facility] Etfvswrseo14[address] [place] [address]Dr. Tadeo Smyth Albumin/Globulin [Mass ratio]1.1 {ratio}NormalThe [facility] CenterComment on above:Performed By: #### CMP, VIJI, LIPA, CMADM ####[facility] Mncvsnvwom023[address] [place] [address]Dr. Yilan ChangALP [Catalytic activity/Vol]145 U/LCritically kkwy02-563Kig [facility] CenterComment on above: Performed By: #### CMP, VIJI, LIPA, CMADM ####[facility] Chumvmieky69[address] [place] [address]Dr. Yilan ChangALT [Catalytic activity/Vol] 30 U/ASiutse58-34Iwe [facility] CenterComment on above:Performed By: #### CMP, VIJI, LIPA, CMADM ####[facility] Pkdtqouqwz3464 [place] [address]Dr. Yilan ChangAnion gap [Moles/Vol]11.5 mmol/LNormalThe [facility] CenterComment on above:Performed By: #### CMP, VIJI, LIPA, CMADM ####[facility] Gviweoosqe65[address] [place] [address]Dr. Yilan ChangAST [Catalytic activity/Vol]17 U/JMgctkx75-30Ozb [facility] CenterComment on above: Performed By: #### CMP, VIJI, LIPA, CMADM ####[facility] Iecqngqoyy9[address] [place], [place] [address]Dr. Yilan ChangBilirubin [Mass/Vol]0.1 mg/dL Critically low0.2-1.0The [facility] CenterComment on above:Performed By: #### CMP, VIJI, LIPA, CMADM ####[facility] Btbeqwyqxz23[address] [place], [place] [address]Dr. Yilan ChangCalcium [Mass/Vol]8.9 mg/dLNormal 8.5-10.1The [facility] CenterComment on above:Performed By: #### CMP, VIJI, LIPA, CMADM ####[facility] Dhpcuejviz0509 [place] [address]Dr. Yilan ChangChloride [Moles/Vol]104 mmol/PBumpdg81-253Igu [facility] CenterComment on above:Performed By: #### CMP, VIJI, LIPA, CMADM ####[facility] Bqcmjqmpkk1078 [place] [address]Dr. Yilan ChangCO2 [Moles/Vol]27.2 mmol/WPayvxu97.0-32.0The [facility] CenterComascension borgess hospital on above: Performed By: #### CMP, VIJI, LIPA, CMADM ####[facility] Bvapkzdspr[address] [place], [place] [address]Dr. Yilan ChangCreatinine [Mass/Vol]0.90 mg/dLNormal0.55-1.02The [facility] on above:Performed By: #### CMP, VIJI, LIPA, CMADM ####[facility] Cytowfaitg[address] [place], [place] [address]Dr. Yilan ChangEGFR-AF DJIBOUTIAN>60Normal>=60The [facility] on above:Performed By: #### CMP, VIJI, LIPA, CMADM ####[facility] Jdpfynwhyo[address] [place], [place] [address]Dr. Yilan ChangEGFR-NON AF DJIBOUTIAN>60Normal>=60The [facility] on above:Performed By: #### CMP, VIJI, LIPA, CMADM ####[facility] Hwaqeyggok99[address] [place] [address]Dr. Yilan ChangGlobulin (S) [Mass/Vol]3.5 g/dLNormalThe [facility] on above:Performed By: #### CMP, VIJI, LIPA, CMADM ####[facility] Narsxytexu01[address] [place] [address]Dr. Yilan ChangGlucose [Mass/Vol]98 mg/uLLrdfel37-811 The [facility] HospitalComment on above:Performed By: #### CMP, VIJI, LIPA, CMADM ####[facility] Omluceqiqu4135 [place] [address]Dr. Yilan ChangPotassium [Moles/Vol]3.7 mmol/LNormal3.5-5.1The [facility] Comment on above:Performed By: #### CMP, VIJI, LIPA, CMADM ####[facility] Zbladpgfgg0655 [place] [address]Dr. Yilan ChangProtein [Mass/Vol]7.3 g/dLNormal6.4-8.2The [facility] CenterComment on above:Performed By: #### CMP, VIJI, LIPA, CMADM ####[facility] Sjgnrafjjq1828 [place] [address]Dr. Yilan ChangSodium [Moles/Vol]139 mmol/LNormal 136-145The [facility] CenterComment on above:Performed By: #### CMP, VIJI, LIPA, CMADM ####[facility] Jazoaadcxh3096 [place] [address]Dr. Yilan ChangUrea nitrogen [Mass/Vol]25.0 mg/dLCritically high7.0-18.0The [facility] CenterComment on above:Performed By: #### CMP, VIJI, LIPA, CMADM ####[facility] Tuvovauquu24[address] [place] [address]Dr. Yilan ChangUrea nitrogen/Creatinine [Mass ratio]27.8 mg/mgNormWilson Memorial HospitalComment on above:Performed By: #### CMP, VIJI, LIPA, CMADM ####[facility] Ttwkyciuxh79[address] [place] [address]Dr. Yilan ChangURINE MICROSCOPIC ONLYon 82-22-1259DDWLWTVTBYEA SEENNormalNONE SEENThe [facility] CenterComment on above:Performed By: #### SANDRO BARBOSARO ####[facility] Hrnhalceim4094 [place], [place]Dr. Yilan ChangBacteria identified Cx Nom (U)NOT INDICATEDNormNationwide Children's Hospitale [facility] CenterComment on above: Performed By: #### CHELSEY UMICRO ####[facility] Zmshplogby0375 [place] [phone]. Tadeo ChangCASTNONE SEENNormalNONE SEENMount St. Mary HospitalComascension borgess hospital on above:Performed By: #### CHELSEY UMICRO ####[facility] Klmstexqbd4775 [place] [phone]. Tadeo SmythCrystals LM Nom (Urine sed)NONE SEENNormalNONE SEENThe [facility] CenterComascension borgess hospital on above: Performed By: #### CHELSEY UMICRO ####[facility] Xhuomfgrgz6381 [place] [phone]. Tadeo ChangEpithelial cells LM Ql (Urine sed)FEW AbnormalNONE SEEN /RAREThe [facility] CenterComascension borgess hospital on above:Performed By: #### CHELSEY UMICRO ####[facility] Mmcjrogsoy9147 [place] [address]Dr. Tadeo ChangMUCOUSNONE SEENNormalNONE SEENMount St. Mary HospitalComascension borgess hospital on above:Performed By: #### CHELSEY ICRO ####[facility] Hrjlheqjwy[address] [place], [place] [address]Dr. Tadeo SmythJzylrQTW6-5Kfjwdtwc7-8Opd [facility] on above:Performed By: #### CHELSEY UMICRO ####[facility] Xncipqpuld[address] [place], [place] [address]Dr. Tadeo SmythWBCNONE SEEN NormalNONE SEENMount St. Mary HospitalComascension borgess hospital on above:Performed By: #### CHELSEY UMICRO ####[facility] Twakqweoof1192 [place] [address]Dr. Tadeo SmythAMYLASEon 92-61-8119Jupyvrq [Catalytic activity/Vol]49 U/L Jvfobj19-162Uyo [facility] on above:Performed By: #### LIPA, VIJI, CMP ####[facility] Gdbiiqchge5251 [place] [address]Dr. Tadeo SmythCBC AUTO DIFFon 00-48-0092BBKM #0.0 103/ulNormal0.0-0.1The [facility] CenterComment on above:Performed By: #### CBC ####[facility] Aqmskehtxk7[address] [place], [place] [address]Dr.Tadeo ChangBasophils/100 WBC (Bld)0.6 %Normal0.2-2.0The [facility] CenterComment on above:Performed By: #### CBC ####[facility] Ehsyskxkbv84[address] [place], [place] [address]Dr.Margotlan ChangEO #0.2 103/ulNormal0.0-0.7The [facility] CenterComment on above:Performed By: #### CBC ####[facility] Crjtexpegf55[address] [place], [place] [address]Dr.Tadeo ChangEosinophils/100 WBC (Bld)3.1 %Normal 0.9-7.0The [facility] CenterComment on above:Performed By: #### CBC ####[facility] Iulosyqsbs1950[address] [place], [place] [address]Dr.Tadeo Smyth Erythrocyte distribution width (RBC) [Ratio]13.2 %Zbjdtd14.0-15.0The [facility] CenterComment on above:Performed By: #### CBC ####[facility] Xbweecjevy068[address] [place], [place] [address]Dr.Tadeo ChangHematocrit (Bld) [Volume fraction]35.7 %Critically low36.0-48.0The [facility] CenterComment on above:Performed By: #### CBC ####[facility] Fnfuljhfiq230[address] [place], [place] [address]Dr.Tadeo ChangHemoglobin (Bld) [Mass/Vol]11.6 g/dL Critically low12.0-16.0The [facility] CenterComment on above:Performed By: #### CBC ####[facility] Eihisgtiyt80[address] [place], [place] [address]Dr. Tadeo ChangIG #0.01 10e3/ulNormal0.00-0.03The [facility] CenterComment on above: Performed By: #### CBC ####[facility] Dvzcqlalzz6356 [place] [id number].Tadeo SmythIG %0.2 %Normal0.0-0.5The [facility] CenterComment on above:Performed By: #### CBC ####[facility] Ryenfnsnuw4369 [place] [address]Dr.Tadeo SmythLYMPH #1.9 103/ulNormal1.2-3.8The [facility] CenterComment on above:Performed By: #### CBC ####[facility] Qgilwgwcrp[address] [place], [place] [address]Dr. Tadeo SmythLymphocytes/100 WBC (Bld)34.8 %Ivobno80.5-60.0The [facility] Comment on above:Performed By: #### CBC ####[facility] Rrsnewvebi86[address] [place], [place] [address]Dr.Tadeo SmythMANUAL DIFF REQNONormalThe [facility] CenterComment on above:Performed By: #### CBC ####[facility] Jybclksfsr09[address] [place], [place] [address]Dr.Tadeo SmythH (RBC) [Entitic mass]29.1 adAciami22.7-34.0The [facility] CenterComment on above: Performed By: #### CBC ####[facility] Ybytguexwf814[address] [place], [place] [address]Dr.Tadeo SmythHC (RBC) [Mass/Vol]32.5 g/dLNormal 29.9-35.2The [facility] CenterComment on above:Performed By: #### CBC ####[facility] Iscsruwxkw26[address] [place], [place] [address]Dr. Tadeo SmythV (RBC) [Entitic vol]89.7 gTOqxnqq98.0-99.0The [facility] Comment on above:Performed By: #### CBC ####[facility] Kgtyautomg67[address] [place], [place] [address]Dr.Tadeo SmythMONO #0.3 103/ulNormal0.3-0.8 The [facility] CenterComment on above:Performed By: #### CBC ####[facility] Ofyrqldtyx2570 [place] [address]Dr.Tadeo Smyth Monocytes/100 WBC (Bld)6.1 %Normal1.7-12.0The [facility] CenterComment on above: Performed By: #### CBC ####[facility] Wdfklxuuso4975 [place] [address]Dr.Tadeo SmythNEUT #3.0 103/ulNormal1.4-6.5The [facility] CenterComment on above:Performed By: #### CBC ####[facility] Vqbwjwmejz665[address] [place], [place] [address]Dr.Tadeo SmythNeutrophils/100 WBC (Bld)55.2 %Ygdtqy81.0-75.0The [facility] CenterComment on above:Performed By: #### CBC ####[facility] Khtsjfcqpg[address] [place], [place] [address]Dr.Tadeo SmythPlatelet mean volume (Bld) [Entitic vol]9.0 fLCritically low 9.5-13.5The [facility] CenterComment on above:Performed By: #### CBC ####[facility] Pedpamesbv[address] [place], [place] [address]Dr. Tadeo SmythPLT358 103/zjDgazbz834-931Ytz [facility] CenterComment on above: Performed By: #### CBC ####[facility] Sljabmvedo[address] [place], [place] [address]Dr.Tadeo SmythRBC3.98 106/ulCritically low4.20-5.40The [facility] CenterComment on above:Performed By: #### CBC ####[facility] Ekepbuhtjq26[address] [place], [place] [address]Dr.Tadeo SmythWBC5.4 103/ul Normal4.0-11.0The [facility] CenterComment on above:Performed By: #### CBC ####[facility] Objikmuldi18[address] [place], [place] [address]Dr. Tadeo SmythLIPASEon 83-14-4830Pugoug [Catalytic activity/Vol]54.0 U/LCritically low73.0-393.0The [facility] CenterComment on above:Performed By: #### VIJI PARKER, CMP ####[facility] Sclfpgfilx5735 [place] [address]Dr. Yilan ChangPROF 14(COMP METB)on 07-77-4283Ewemhad [Mass/Vol]3.5 g/dLNormal 3.4-5.0The [facility] CenterComment on above:Performed By: #### VIJI PARKER, CMP ####[facility] Pltvwjbzva[address] [place], [place] [address]Dr. Yilan ChangAlbumin/Globulin [Mass ratio]0.9 {ratio}NormalThe [facility] Comment on above:Performed By: #### VIJI PARKER, CMP ####[facility] Fzbcpwaxgq884[address] [place], [place] [address]Dr. Yilan ChangALP [Catalytic activity/Vol]127 U/LCritically ksyn34-038Tzs [facility] CenterComment on above: Performed By: #### VIJI PARKER, CMP ####[facility] Zfwhbgbnnp82[address] [place], [place] [address]Dr. Yilan ChangALT [Catalytic activity/Vol]16 U/L Tdteke81-48Hiq [facility] CenterComment on above:Performed By: #### VIJI PARKER, CMP ####[facility] Byjrgszqlr11[address] [place], [place] [address]Dr. Yilan ChangAnion gap [Moles/Vol]10.6 mmol/LNormalThe [facility] CenterComment on above:Performed By: #### VIJI PARKER, CMP ####[facility] Avoekbghqc1176 [place] [address]Dr. Yilan ChangAST [Catalytic activity/Vol] 16 U/SMciycv00-32Bxq [facility] CenterComment on above:Performed By: #### VIJI PARKER, CMP ####[facility] Guffmhnand45[address] [place], [place] [address]Dr. Yilan ChangBilirubin [Mass/Vol]0.3 mg/dLNormal0.2-1.0The [facility] CenterComment on above:Performed By: #### VIJI PARKER, CMP ####[facility] Xcoryrsnqt6513 [place] [address]Dr. Yilan ChangCalcium [Mass/Vol]9.1 mg/dLNormal8.5-10.1The [facility] CenterComment on above:Performed By: #### VIJI PARKER, CMP ####[facility] Nxuvnggduj68[address] [place], [place] [address]Dr. Yilan ChangChloride [Moles/Vol]104 mmol/LNormal 98-107The [facility] CenterComment on above:Performed By: #### VIJI PARKER, CMP ####[facility] Ohktezqhsf403[address] [place], [place] [address]Dr. Yilan ChangCO2 [Moles/Vol]28.0 mmol/SObeaot03.0-32.0The [facility] CenterComment on above:Performed By: #### VIJI PARKER, CMP ####[facility] Suhayiwqqa[address] [place], [place] [address]Dr. Yilan ChangCreatinine [Mass/Vol]0.96 mg/dLNormal0.55-1.02The [facility] CenterComment on above:Performed By: #### VIJI PARKER, CMP ####[facility] Rtvxihpbdj[address] [place], [place] [address]Dr. Yilan ChangEGFR-AF DJIBOUTIAN>60Normal>=60The [facility] Comment on above:Performed By: #### VIJI PARKER, CMP ####[facility] Eqahwrtyan326[address] [place], [place] [address]Dr. Yilan ChangEGFR-NON AF DJIBOUTIAN>60Normal>=60The [facility] CenterComment on above:Performed By: #### VIJI PARKER, CMP ####[facility] Tgadsgesuk2[address] [place], [place] [address]Dr. Yilan ChangGlobulin (S) [Mass/Vol]3.8 g/dLNormalThe [facility] CenterComment on above:Performed By: #### VIJI PARKER, CMP ####[facility] Ownawpiaeq[address] [place], [place] [address]Dr. Yilan ChangGlucose [Mass/Vol]93 mg/sCUwksgm50-442Pan Kettering Health Springfieldment on above:Performed By: #### VIJI PARKER, CMP ####[facility] Aqhswwckml3707 [place] [address]Dr. Yilan ChangPotassium [Moles/Vol]3.6 mmol/LNormal 3.5-5.1The [facility] CenterComment on above:Performed By: #### VIJI PARKER, CMP ####[facility] Cjtzbwcbqd2838 [place] [address]Dr. Yilan ChangProtein [Mass/Vol]7.3 g/dLNormal6.4-8.2The [facility] CenterComascension borgess hospital on above:Performed By: #### VIJI PARKER, CMP ####[facility] Trbhioalwg9433 [place] [address]Dr. Yilan ChangSodium [Moles/Vol]139 mmol/L Blltbx533-207Hjv [facility] CenterComascension borgess hospital on above:Performed By: #### VIJI PARKER, CMP ####[facility] Fjtcuvbhrg2261 [place] [address]Dr. Yilan ChangUrea nitrogen [Mass/Vol]16.0 mg/dLNormal7.0-18.0The [facility] CenterComascension borgess hospital on above:Performed By: #### VIJI PARKER, CMP ####[facility] Iaevrwlmvj[address] [place], [place] [address]Dr. Yilan ChangUrea nitrogen/Creatinine [Mass ratio]16.7 mg/mgNoCincinnati VA Medical CenterComascension borgess hospital on above:Performed By: #### VIJI PARKER, CMP ####[facility] Rhyvsvsxew[address] [place], [place] [address]Dr. Yilan ChangXR ABD FLAT UP_PA Kasey 05-18-3114SV ABD FLAT UP_PA [facility] ClinicCULTLAWRENCE COUNTY HOSPITAL URINEon 03-22-1760ODJMVNZ URINEMercy Health Defiance HospitalComment on above:Performed By: #### URCX ####[facility] Vfimjnidla[address] [place], [place] [address]Dr. Tadeo ChangINSULINon 08-08-4310Stbqltk60.9 uIU/mLNormal2.6-24.9The [facility] CenterComment on above:Performed By: #### INSULIN ####[facility] Dqakrarvnt6784 [place] [address]Dr. Margotlan ChangCBC AUTO DIFFon 66-56-6118KKDT #0.0 103/ulNormal0.0-0.1The [facility] CenterComment on above:Performed By: #### CBC ####[facility] Mcgpdijvlj8294 [place] [address]Dr.Margotnicole ChangBasophils/100 WBC (Bld)0.6 %Normal 0.2-2.0The [facility] CenterComment on above:Performed By: #### CBC ####[facility] Qifeolkuyz[address] [place], [place] [address]Dr.Yilan ChangEO # 0.2 103/ulNormal0.0-0.7The [facility] CenterComment on above:Performed By: #### CBC ####[facility] Nswrqeqthu109[address] [place], [place] [address]Dr. Margotlan ChangEosinophils/100 WBC (Bld)3.4 %Normal0.9-7.0The [facility] Comment on above:Performed By: #### CBC ####[facility] Iujygfibef647[address] [place], [place] [address]Dr.Margotnicole ChangErythrocyte distribution width (RBC) [Ratio]13.1 %Qystze34.0-15.0The [facility] CenterComment on above: Performed By: #### CBC ####[facility] Hbvvlqoiok[address] [place], [place] [address]Dr.Margotnicole ChangHematocrit (Bld) [Volume fraction]42.4 % Nzluii23.0-48.0The [facility] CenterComment on above:Performed By: #### CBC ####[facility] Safsrobcar[address] [place], [place] [address]Dr. Tadeo ChangHemoglobin (Bld) [Mass/Vol]13.7 g/dGDohips62.0-16.0The [facility] CenterComment on above:Performed By: #### CBC ####[facility] Niijsrvlew[address] [place], [place] [address]Dr.Tadeo SmythIG #0.01 10e3/ulNormal0.00-0.03The [facility] CenterComment on above:Performed By: #### CBC ####[facility] Zgdvvdrzve265[address] [place], [place] [address]Dr. Tadeo HajaIG %0.2 %Normal0.0-0.5The [facility] CenterComment on above:Performed By: #### CBC ####[facility] Siidmcidpg685[address] [place], [place] [address]Dr.Tadeo SmythLYH #2.1 103/ulNormal1.2-3.8The [facility] Comment on above:Performed By: #### CBC ####[facility] Uabtwqxcxn[address] [place], [place] [address]Dr.Tadeo SmythLymphocytes/100 WBC (Bld)41.2 %Ijzrxv62.5-60.0The [facility] CenterComment on above:Performed By: #### CBC ####[facility] Posffikxad[address] [place], [place] [address]Dr. Margotnicole SmythMANUAL DIFF REQNONormalThe [facility] CenterComment on above: Performed By: #### CBC ####[facility] Ebdmdecvjf98[address] [place], [place] [address]Dr.Tadeo SmythMOUNT [facility]INT [facility] (RBC) [Entitic mass]28.8 pgNormal 26.7-34.0The [facility] CenterComment on above:Performed By: #### CBC ####[facility] [address] [place], [place] [address]Dr. Tadeo SmythKINGSBR[facility] (RBC) [Mass/Vol]32.3 g/gIVqdohy77.9-35.2The [facility] Comment on above:Performed By: #### CBC ####[facility] Lkgvrwckrm617[address] [place], [place] [address]Dr.Tadeo SmythV (RBC) [Entitic vol]89.3 fL Lismlr64.0-99.0The [facility] CenterComment on above:Performed By: #### CBC ####[facility] Ibxqpbdxel35[address] [place], [place] [address]Dr. Tadeo SmythMONO #0.4 103/ulNormal0.3-0.8The [facility] HospitalComment on above: Performed By: #### CBC ####[facility] Tolvlfzvyb3035[address] [place], [place] [address]Dr.Tadeo ChangMonocytes/100 WBC (Bld)8.1 %Normal 1.7-12.0The [facility] CenterComment on above:Performed By: #### CBC ####[facility] Uvsnljqcqh3860[address] [place], [place] [address]Dr. Tadeo SmythNEUT #2.4 103/ulNormal1.4-6.5The [facility] CenterComment on above: Performed By: #### CBC ####[facility] Exbwhzigij317[address] [place], [place] [address]Dr.Tadeo ChangNeutrophils/100 WBC (Bld)46.5 %Normal 43.0-75.0The [facility] CenterComment on above:Performed By: #### CBC ####[facility] Rwtenobdpi3767[address] [place], [place] [address]Dr. Tadeo SmythPlatelet mean volume (Bld) [Entitic vol]9.3 fLCritically low9.5-13.5 The [facility] CenterComment on above:Performed By: #### CBC ####[facility] Wgqqdlcwjo36[address] [place], [place] [address]Dr.Tadeo HzciqDTA552 103/tqVoifcw624-682Gsl [facility] CenterComment on above:Performed By: #### CBC ####[facility] Fgvrrgsvgb7775[address] [place], [place] [address]Dr. Tadeo ChangRBC4.75 106/ulNormal4.20-5.40The [facility] CenterComment on above: Performed By: #### CBC ####[facility] Fxbfhuowdo648[address] [place], [place] [address]Dr.Tadeo ChangWBC5.1 103/ulNormal4.0-11.0The [facility] CenterComasc[facility] on above:Performed By: #### CBC ####[facility] Rbqpbkrayq[address] [place], [place] [address]Dr.Tadeo SmythFREE THYROXINE INDEX T7on 09-46-1492ZGF7.12Mubrvo7.30-4.50The [facility] CenterComasc[facility]org[facility] on above:Performed By: #### T7, LIPID, TSH, CMP ####[facility] [address] [place] [address]Dr. Tadeo SmythT3U31.0 % Qkavdz61.0-39.0The [facility] CenterComasc[facility] hospital on above:Performed By: #### T7, LIPID, TSH, CMP ####[facility] Cdchqrqtzd14[address] [place] [address]Dr. Tadeo SmythT4 [Mass/Vol]9.40 ug/dLNormal4.80-13.90The [facility] CenterComasc[facility] on above:Performed By: #### T7, LIPID, TSH, CMP ####[facility] Hctozbodos5424[address] [place], [place] [address]Dr. Tadeo Smyth GLYCOHEMOGLOBIN A1Con 29-43-4102ZWZ RECOMMENDATIONSEE [facility] CenterCom[facility] on above:Result Comment: ADA RECOMMENDED LIMIT 4.0 - 6.0 ADA THERAPEUTIC TARGET < 7.0 ACTION SUGGESTED > 7.0Performed By: #### A1C ####[facility] Ngwgegfivn229[address] [place], [place] [address]Dr. Tadeo SmythGlucose [Mass/Vol]120 mg/dLMercy Health Defiance HospitalComascension borgess hospital on above:Performed By: #### A1C ####[facility] Bjcrmfmrfy9977[address] [place], [place] [address]Dr.Tadeo SmythHbA1c (Bld) [Mass fraction]5.8 %Normal 4.5-6.2The [facility] CenterComasc[facility] on above:Performed By: #### A1C ####[facility] Bjppwnvnnb3[address] [place], [place] [address]Dr.Tadeo SmythIRONon 93-67-8731Fdsv [Mass/Vol]59.0 ug/aWNkcpye71.0-170.0[facility] Centerment on above:Performed By: #### IRON ####[facility] Whuwgjswlq127[address] [place], [place] [address]Dr. Yilan ChangLIPID PROFILEon 21-43-8475PBHN-HDL RATIO NORMSEE BELOWMercy Health Defiance HospitalComment on above:Result Comment: 3.3 - 4.4 LOW RISK 4.4 - 7.1 AVERAGE RISK 7.1 - 11.0 MODERATE RISK >11.0 HIGH RISKPerformed By: #### T7, LIPID, TSH, CMP ####[facility] Avekczqkrj139[address] [place], [place] [address]Dr. Yilan ChangCholesterol [Mass/Vol]227 mg/dLCritically high<=200The [facility] CenterComasc[facility] on above:Performed By: #### T7, LIPID, TSH, CMP ####[facility] Jvarpytfvv801[address] [place], [place] [address]Dr. Yilan ChangCholesterol in HDL [Mass/Vol]67 mg/dL Critically slqq55-50Hew [facility] CenterComasc[facility] on above:Performed By: #### T7, LIPID, TSH, CMP ####[facility] Suypjcycpm276[address] [place], [place] [address]Dr. Yilan ChangCholesterol in LDL [Mass/Vol]139.0 mg/dLMercy Health Defiance HospitalComascension borgess hospital on above:Performed By: #### T7, LIPID, TSH, CMP ####[facility] Ladiqkvoos9[address] [place], [place] [address]Dr. Yilan ChangCholesterol.total/Cholesterol in HDL [Mass ratio]3.4 {ratio}NormalMount St. Mary HospitalComascension borgess hospital on above:Performed By: #### T7, LIPID, TSH, CMP ####[facility] Yjxahquhho6890[address] [place], [place] [address]Dr. Yilan ChangHDL NORMAL> or = 60 mg/dl - LOW CARDIOVASCULAR RISK <40 mg/dl - HIGH CARDIOVASCULAR RISKMercy Health Defiance HospitalComment on above:Performed By: #### T7, LIPID, TSH, CMP ####[facility] [address]ksku[address]ulv[address] [place] [address]Dr. Tadeo ChangLDL CALC NORMALSEE BELOWMercy Health Defiance HospitalComment on above:Result Comment: <100 mg/dl OPTIMAL 100 - 129 mg/dl NEAR OR ABOVE OPTIMAL 130 - 159 mg/dl BORDERLINE HIGH 160 - 189 mg/dl HIGH >190 mg/dl VERY HIGHPerformed By: #### T7, LIPID, TSH, CMP ####[facility] S[address]fblzgwu[address] [place] [address]Dr. Margotnicole HajaTriglyceride [Mass/Vol]105 mg/dLNormal<=150The [facility] CenterComment on above:Performed By: #### T7, LIPID, TSH, CMP ####[facility] Mdxhqhmocf537[address] [place], [place] [address]Dr. Margotnicole HajaVLDL CALC21.0 mg/dLNoCincinnati VA Medical CenterComment on above:Performed By: #### T7, LIPID, TSH, CMP ####[facility] Ggczsmikdm506[address] [place], [place] [address]Dr. Margotnicole SmythOCC BLD IMMUNO SCREENon 13-80-4282BACELK BLOODNegativeNormalNEGATIVEThe [facility] CenterComment on above:Performed By: #### OBSCRN ####[facility] Drqptwvtkv613[address] [place], [place] [address]Dr. Margotnicole SmythPROF 14(COMP METB)on 84-90-5736Laapdvm [Mass/Vol]3.7 g/dLNormal3.4-5.0The [facility] Comment on above:Performed By: #### T7, LIPID, TSH, CMP ####[facility] Qqvx[address]jed[address] [place] [address]Dr. Tadeo Smyth Albumin/Globulin [Mass ratio]0.8 {ratio}NormalThe [facility] CenterComment on above:Performed By: #### T7, LIPID, TSH, CMP ####[facility] Pcjitalnkj[address] [place] [address]Dr. Tadeo SmythALP [Catalytic activity/Vol]141 U/LCritically lbfx80-590Czo [facility] CenterComment on above: Performed By: #### T7, LIPID, TSH, CMP ####[facility] Qyhcaloziu[address] [place] [address]Dr. Yilan ChangALT [Catalytic activity/Vol]23 U/L Bcoyqq60-15Jwk [facility] CenterComment on above:Performed By: #### T7, LIPID, TSH, CMP ####[facility] Eipadhiftk[address] [place] [address]Dr. Yilan ChangAnion gap [Moles/Vol]9.8 mmol/LNormalThe [facility] Comment on above:Performed By: #### T7, LIPID, TSH, CMP ####[facility] Kkwrvxlwxz84[address] [place] [address]Dr. Yilan ChangAST [Catalytic activity/Vol]13 U/LCritically ykv90-23Hez [facility] CenterComment on above: Performed By: #### T7, LIPID, TSH, CMP ####[facility] Agvhbkcakl[address] [place], [place] [address]Dr. Yilan ChangBilirubin [Mass/Vol]0.4 mg/dL Normal0.2-1.0The [facility] CenterComment on above:Performed By: #### T7, LIPID, TSH, CMP ####[facility] Wmhdneopgd[address] [place], [place] [address]Dr. Yilan ChangCalcium [Mass/Vol]10.2 mg/dLCritically high8.5-10.1The [facility] CenterComment on above:Performed By: #### T7, LIPID, TSH, CMP ####[facility] Hckfuuwogo695[address] [place], [place] [address]Dr. Yilan ChangChloride [Moles/Vol]101 mmol/WTeysaq44-218UgqMount St. [facility] Hospital Comment on above:Performed By: #### T7, LIPID, TSH, CMP ####[facility] Bdwbfmgphp495[address] [place], [place] [address]Dr. Yilan ChangCO2 [Moles/Vol]32.8 mmol/LCritically high21.0-32.0The [facility] CenterComment on above:Performed By: #### T7, LIPID, TSH, CMP ####[facility] Ihctuypnwz4[address] [place] [address]Dr. Yilan ChangCreatinine [Mass/Vol]0.92 mg/dLNormal0.55-1.02The [facility] Springfieldment on above: Performed By: #### T7, LIPID, TSH, CMP ####[facility] [address]mlmzlvo[address] [place] [address]Dr. Yilan ChangEGFR-AF DJIBOUTIAN>60Normal>=60The [facility] CenterComment on above:Performed By: #### T7, LIPID, TSH, CMP ####[facility] Lvnynnwyry[address] [place], [place] [address]Dr. Yilan ChangEGFR-NON AF DJIBOUTIAN>60Normal>=60The [facility] CenterComment on above:Performed By: #### T7, LIPID, TSH, CMP ####[facility] Ydtbiixhtl9480[address] [place], [place] [address]Dr. Yilan ChangGlobulin (S) [Mass/Vol]4.8 g/dLNormalThe [facility] CenterComascension borgess hospital on above:Performed By: #### T7, LIPID, TSH, CMP ####[facility] Aiiltzgnbv765[address] [place], [place] [address]Dr. Yilan ChangGlucose [Mass/Vol]114 mg/dLCritically shwc85-053Ezl [facility] on above:Performed By: #### T7, LIPID, TSH, CMP ####[facility] Fqlbvolsom[address] [place], [place] [address]Dr. Yilan ChangPotassium [Moles/Vol]3.6 mmol/LNormal3.5-5.1The [facility] CenterComment on above:Performed By: #### T7, LIPID, TSH, CMP ####[facility] Khboycxhpx815[address] [place], [place] [address]Dr. Yilan Smyth Protein [Mass/Vol]8.5 g/dLCritically high6.4-8.2The [facility] Springfieldment on above:Performed By: #### T7, LIPID, TSH, CMP ####[facility] Ibzthqizag07[address] [place], [place] [address]Dr. Yilan ChangSodium [Moles/Vol]140 mmol/VMuuljt151-746Gkm [facility] HospitalComment on above: Performed By: #### T7, LIPID, TSH, CMP ####[facility] [address]qygxm[address] [place] [address]Dr. Yilan ChangUrea nitrogen [Mass/Vol]23.0 mg/dLCritically high7.0-18.0The [facility] HospitalComment on above:Performed By: #### T7, LIPID, TSH, CMP ####[facility] [address]uxqxdcg64[address] [place] [address]Dr. Yilan ChangUrea nitrogen/Creatinine [Mass ratio] 25.0 mg/mgNormalThe [facility] CenterComment on above:Performed By: #### T7, LIPID, TSH, CMP ####[facility] [address]msflaf[address] [place] [address]Dr. Yinicole ChangTSHon 07-24-8588RPQ2.748 uIU/mLCritically high 0.358-3.740The [facility] CenterComment on above:Performed By: #### T7, LIPID, TSH, CMP ####[facility] [address]xltbcrluv[address] [place] [address]Dr. Yilan ChangUA RANDOM W/MICROSCOPICon 11-67-6088OGYBTZXRFQRMYBkniymze NONE SEENMount St. Mary HospitalComment on above:Performed By: #### UAMIC ####[facility] [address]jr[address] [place] [address]Dr. Yilan ChangBilirubin Ql (U)NegativeNormalNEGATIVEFirelands Regional Medical Center South Campus HospitalComment on above:Performed By: #### UAMIC ####[facility] Fzzvhmzhwc[address] [place] [address]Dr. Yilan ChangCASTNONE SEENNormalNONE SEENMount St. Mary HospitalComment on above:Performed By: #### UAMIC ####[facility] [address]whqhcja[address] [place] [address]Dr. Yilan ChangClarity (U) CLEARNormalCLEARThe [facility] HospitalComment on above:Performed By: #### UAMIC ####[facility] [address]alfwee[address] [place] [address]Dr. Margotlan ChangColor (U)YELLOWNormalYELLOWMount St. Mary HospitalComment on above: Performed By: #### UAMIC ####[facility] Eivdwpzmto04[address] [place], [place] [address]Dr. Tadeo ChangCrystals LM Nom (Urine sed)NONE SEEN NormalNONE SEENThe [facility] CenterComment on above:Performed By: #### UAMIC ####[facility] Uoddjtvliy9435[address] [place], [place] [address]Dr. Tadeo ChangEpithelial cells LM Ql (Urine sed)FEWAbnormalNONE SEEN /RAREThe [facility] CenterComment on above:Performed By: #### UAMIC ####[facility] Moqhhaztsg336[address] [place], [place] [address]Dr. Tadeo ChangGlucose Ql (U) NegativeNormalNEGATIVEMount St. Mary HospitalComment on above:Performed By: #### UAMIC ####[facility] Xwwtsehbiq998[address] [place], [place] [address]Dr. Tadeo ChangHemoglobin Ql (U)SMALLAbnormalNEGATIVEMount St. Mary Hospital Comment on above:Performed By: #### UAMIC ####[facility] Gofieujqjr[address] [place], [place] [address]Dr. Tadeo ChangKetones Ql (U)TRACEAbnormal NEGATIVEMount St. Mary HospitalComment on above:Performed By: #### UAMIC ####[facility] Rrxmvgmlwe833[address] [place], [place] [address]Dr. Tadeo ChangLEUKOCYTESTRACEAbnormalNEGATIVEMount St. Mary HospitalComment on above: Performed By: #### UAMIC ####[facility] Tgzhktqzem094[address] [place], [place] [address]Dr. Yilan ChangMUCOUSNONE SEENNormalNONE SEENMount St. Mary HospitalComment on above:Performed By: #### UAMIC ####[facility] Hcnsdmbuiu57[address] [place], [place] [address]Dr. Margotlan ChangNitrite Ql (U) NegativeNormalNEGATIVEMount St. Mary HospitalComment on above:Performed By: #### UAMIC ####[facility] [address]qipngbphe[address] [place] [address]Dr. Tadeo ChangpH (U)6.5 [pH]Normal5-9The [facility] CenterComment on above:Performed By: #### UAMIC ####[facility] Ucllibintg[address] [place] [address]Dr. Tadeo OhzbjCUG5-86Jcshdfyo1-8Wkn [facility] Comment on above:Performed By: #### UAMIC ####[facility] Odfzwlsald4225[address] [place], [place] [address]Dr. Tadeo SmythSPEC GRAVITY1.020Normal 1.005-<=1.025The [facility] CenterComment on above:Performed By: #### UAMIC ####[facility] Nqsdabydms36[address] [place], [place] [address]Dr. Tadeo ChangUA CYIDFXN65 mg/dlAbnormalNEGATIVE/ TRACEThe [facility] CenterComment on above:Performed By: #### UAMIC ####[facility] Tueejrihcp0067[address] [place], [place] [address]Dr. Margotlan ChangUrobilinogen Qn (U)0.2 {Benito'U}/dLNormal0.2 - 1.0The [facility] CenterComment on above:Performed By: #### UAMIC ####[facility] Dxzpyymqyo6320[address] [place], [place] [address]Dr. Tadeo ChangWBC2-5AbnormalNONE SEENThe [facility] CenterComment on above:Performed By: #### UAMIC ####[facility] Rieiuwzkwx3085[address] [place], [place] [address]Dr. Margotnicole SmythCovid-19 PCR (CVDTB)on 07-05-2022 SARS-CoV-2 (COVID-19) RNA CHEN+probe Ql (Unsp spec)Not detectedNormalNOT DETECTED The [facility] CenterComment on above:Result Comment: When diagnostic testing is negative, the [...] test is supported by the Director Of Recruitment of Health and Human Service's declaration that circumstances exist to justify the emergency use of in vitro diagnostics for the detection and/or diagnosis of the virus that causes COVID- 19. This EUA will remain in effect for the duration of the COVID-19declaration justifying emergency of IVDs, unless it is terminated or revoked by the FDA (after which the test may no longer be used).Performed By: #### CVDTBH ####[facility] Dwsfmfyxoq099[address] [place], [place] [address]Dr. Tadeo SmythCULTURE URINEon 94-51-5555PYIVVTX URINENoCincinnati VA Medical Center Comment on above:Performed By: #### URCX ####[facility] Ngcpdbvmcd397[address] [place], [place] [address]Dr. Tadeo SmythGI PANEL (PCR)on 06-07-2022 Adenovirus F 40/41Not detectedNormalNOT DETECTEDThe [facility] CenterComment on above:Performed By: #### GIPANEL ####[facility] Fqhhxnehdy664[address] [place], [place] [address]Dr. Tadeo SmythAstrovirusNot detectedNormalNOT DETECTEDThe [facility] CenterComment on above:Performed By: #### GIPANEL ####[facility] Wpcdmsnryu023[address] [place], [place] [address]Dr. Tadeo SmythC. Diff toxin A/BNot detectedNormalNOT DETECTEDMount St. [facility] Hospital Comment on above:Performed By: #### GIPANEL ####[facility] Gbsxgwamfg3313[address] [place], [place] [address]Dr. Tadeo SmythCampylobacterNot detected NormalNOT DETECTEDThe [facility] CenterComment on above:Performed By: #### GIPANEL ####[facility] Djndnwntwu250197 [address] [place], [place] [address]Dr. Yilan ChangCryptosporidiumNot detectedNormalNOT DETECTEDThe [facility] CenterComment on above:Performed By: #### GIPANEL ####[facility] Enmmhnyjkr[address] [place] [address]Dr. Yilan ChangCyclos. CayetanensisNot detectedNormalNOT DETECTEDThe [facility] CenterComment on above: Performed By: #### GIPANEL ####[facility] Ykzprnuzat[address] [place] [address]Dr. Yilan ChangE. Coli E049Frm ApplicableNormalNot ApplicableThe [facility] CenterComment on above:Performed By: #### GIPANEL ####[facility] Jygqxxabdo37[address] [place] [address]Dr. Yilan ChangE. histolyticaNot detectedNormalNOT DETECTEDThe [facility] Comment on above:Performed By: #### GIPANEL ####[facility] Yqirzotsau477[address] [place], [place] [address]Dr. Yilan ChangEAECNot detectedNormalNOT DETECTEDThe [facility] CenterComment on above:Performed By: #### GIPANEL ####[facility] Tndiwfukba170[address] [place], [place] [address]Dr. Yilan ChangEIECNot detectedNormalNOT DETECTEDThe [facility] CenterComascension borgess hospital on above:Performed By: #### GIPANEL ####[facility] Zjyipdldjk0740[address] [place], [place] [address]Dr. Yilan ChangEPECNot detectedNormalNOT DETECTEDThe [facility] CenterComascension borgess hospital on above:Performed By: #### GIPANEL ####[facility] Uiecvmyjzx9[address] [place] [address]Dr. Yilan ChangETEC Not detectedNormalNOT DETECTEDThe [facility] CenterComment on above:Performed By: #### GIPANEL ####[facility] Myejcbamoh32[address] [place], [place] [address]Dr. Yilan ChangG. LambliaNot detectedNormalNOT DETECTEDThe [facility] CenterComment on above:Performed By: #### GIPANEL ####[facility] Xvnrohtlhi5637[address] [place], [place] [address]Dr. Yilan ChangGIPANEL CONTROLSPASSEDMercy Health Defiance HospitalComment on above:Performed By: #### SONIDO ####[facility] Bvofripdrx[address] [place] [id number]. Tadeo HollandL ARRON HEADERGI PANEL BACTERIAMercy Health Defiance Hospital Comment on above:Performed By: #### KASSIEL ####[facility] Hogbjkvoew[address] [place] [id number]. Tadeo HollandLELLIS ECOLIGI PANEL DIARRHEAGENIC E.COLI / SHIGELLAMercy Health Defiance HospitalComment on above: Performed By: #### SONIDO ####[facility] Rgkkpxpuyq7[address] [place] [address]Dr. Tadeo HollandLHD INFOSEE [facility] Medical CenterComment on above:Result Comment: EAEC- Enteroaggregative E. Coli EPEC- Enteropathogenic E. Coli ETEC- Enterotoxigenic E. Coli lt/st STEC- Shigella-like toxin-producing E. Coli stx1/stx2 EIEC- Shigella/Enteroinvasive E. Coli Performed By: #### SONIDO ####[facility] Wjbjlaazkc7[address] [place], [place] [address]Dr. Tadeo HollandLELLIS PARASITESGI PANEL PARASITES NormalThe [facility] CenterComment on above:Performed By: #### KASSIEL ####[facility] Gougmfejsh[address] [place], [place] [address]Dr. Tadeo CallejasPNLELLIS VIRUSGI PANEL VIRUSESMercy Health Defiance HospitalComment on above:Performed By: #### KASSIEL ####[facility] Schtcqzryp[address] [place] [id number]. Tadeo SmythNorovirus GI/GIINot detectedNormalNOT DETECTEDMount St. Mary HospitalComment on above:Performed By: #### KASSIEL ####[facility] Brnkfjeosl[address] [place] [phone]. Tadeo SmythP. ShigelloidesNot detectedNormalNOT DETECTEDMount St. [facility] Hospital Comment on above:Performed By: #### SONIDO ####[facility] Krpvfddeea14[address] [place] [address]Dr. Tadeo SmythRotavirus ANot detected NormalNOT DETECTEDThe [facility] CenterComment on above:Performed By: #### DERRICKANEL ####[facility] Caouvoqmbs6[address] [place] [address]Dr. Tadeo ChangSalmonellaNot detectedNormalNOT DETECTEDThe [facility] CenterComment on above:Performed By: #### DERRICKANEL ####[facility] Yupbmegjkd32[address] [place], [place] [address]Dr. Tadeo ChangSapovirusNot detectedNormalNOT DETECTEDThe [facility] CenterComment on above:Performed By: #### KASSIEL ####[facility] Slqeyoizka75[address] [place], [place] [address]Dr. Tadeo ChangSTECNot detectedNormalNOT DETECTEDThe [facility] Comment on above:Performed By: #### KASSIEL ####[facility] Ughwhskfpt654[address] [place], [place] [address]Dr. Tadeo ChangVibrioNot detectedNormalNOT DETECTEDThe [facility] CenterComment on above:Performed By: #### DERRICKANEL ####[facility] Qnihhszuzc614[address] [place], [place] [address]Dr. Tadeo SmythVibrio CholeraNot detectedNormalNOT DETECTEDThe [facility] Comment on above:Performed By: #### KASSIEL ####[facility] Wugzyaulrp024[address] [place], [place] [address]Dr. Tadeo SmythY. EnterocoliticaNot detectedNormalNOT DETECTEDThe [facility] CenterComment on above:Performed By: #### DERRICKANEL ####[facility] Zhjmszjoni[address] [place], [place] [address]Dr. Tadeo SmythAMYLASEon 62-81-3746Pbviwce [Catalytic activity/Vol]61 U/L Bchthh19-584Twi [facility] CenterComment on above:Performed By: #### VIJI, LIPA ####[facility] Ghzzxwhrwy[address] [place], [place] [address]Dr. Tadeo SmythCBC AUTO DIFFon 44-83-3650EVNV #0.0 103/ulNormal0.0-0.1The [facility] CenterComment on above:Performed By: #### CBC ####[facility] Udfizivspf[address] [place], [place] [address]Dr.Tadeo ChangBasophils/100 WBC (Bld)0.5 %Normal0.2-2.0The [facility] CenterComment on above:Performed By: #### CBC ####[facility] Wrjleaqpzi[address] [place], [place] [address]Dr.Yilan ChangEO #0.2 103/ulNormal0.0-0.7The [facility] CenterComment on above:Performed By: #### CBC ####[facility] Iqkpfnulrs[address] [place], [place] [address]Dr.Tadeo ChangEosinophils/100 WBC (Bld)3.4 %Normal 0.9-7.0The [facility] CenterComment on above:Performed By: #### CBC ####[facility] Rxbtorpxab09[address] [place], [place] [address]Dr.Margotnicole Smyth Erythrocyte distribution width (RBC) [Ratio]13.2 %Enxwpg68.0-15.0The [facility] CenterComment on above:Performed By: #### CBC ####[facility] Vzhwcvoeve[address] [address] [place], [place] [address]Dr.Tadeo ChangHematocrit (Bld) [Volume fraction]38.3 %Gqmwjc50.0-48.0The [facility] CenterComment on above:Performed By: #### CBC ####[facility] Bqasxiowxu[address] [place], [place] [address]Dr.Tadeo ChangHemoglobin (Bld) [Mass/Vol]12.0 g/dL Jgnogm55.0-16.0The [facility] CenterComment on above:Performed By: #### CBC ####[facility] Ntzckywprh94[address] [place], [place] [address]Dr. Margotnicole ChangIG #0.01 10e3/ulNormal0.00-0.03The [facility] CenterComment on above: Performed By: #### CBC ####[facility] Djwsvqpzzx[address] [place] [id number].Tadeo SmythIG %0.2 %Normal0.0-0.5The [facility] CenterComment on above:Performed By: #### CBC ####[facility] Noejksuqgf99[address] [place] [address]Dr.Tadeo SmythLYMPH #1.7 103/ulNormal1.2-3.8The [facility] CenterComment on above:Performed By: #### CBC ####[facility] Wclqwjlkbb5[address] [place] [address]Dr. Tadeo SmythLymphocytes/100 WBC (Bld)28.1 %Vskhbv81.5-60.0The [facility] Comment on above:Performed By: #### CBC ####[facility] Jhkunrzklw613[address] [place], [place] [address]Dr.Tadeo SmythMANUAL DIFF REQNONormalThe [facility] CenterComment on above:Performed By: #### CBC ####[facility] Wtyujbnkso3914[address] [place], [place] [address]Dr.Tadeo SmythM[facility] (RBC) [Entitic mass]28.5 xfKgkmdm05.7-34.0The [facility] CenterComment on above: Performed By: #### CBC ####[facility] Bsbowirhlx4820[address] [place], [place] [address]Dr.Tadeo SymthHC (RBC) [Mass/Vol]31.3 g/dLNormal 29.9-35.2The [facility] CenterComment on above:Performed By: #### CBC ####[facility] Zgczasgfax28[address] [place], [place] [address]Dr. Tadeo SmythV (RBC) [Entitic vol]91.0 hDDzuzqc04.0-99.0The [facility] Comment on above:Performed By: #### CBC ####[facility] Rchzqzvftc8[address] [place], [place] [address]Dr.Tadeo SmythMONO #0.4 103/ulNormal0.3-0.8 The [facility] CenterComment on above:Performed By: #### CBC ####[facility] Tybaakdwat59[address] [place] [id number].Tadeo Smyth Monocytes/100 WBC (Bld)7.1 %Normal1.7-12.0The [facility] Springfieldment on above: Performed By: #### CBC ####[facility] Htkujbtvpj5[address] [place] [address]Dr.Tadeo SmythNEUT #3.6 103/ulNormal1.4-6.5The [facility] CenterComment on above:Performed By: #### CBC ####[facility] Fhmcjcjibc4199 [place] [address]Dr.Tadeo SmythNeutrophils/100 WBC (Bld)60.7 %Aoozws39.0-75.0The [facility] Springfieldment on above:Performed By: #### CBC ####[facility] Eyyzrfmkeq0413[address] [place], [place] [address]Dr.Tadeo SmythPlatelet mean volume (Bld) [Entitic vol]8.9 fLCritically low 9.5-13.5The [facility] Springfieldment on above:Performed By: #### CBC ####[facility] Lnvlxjpzes11[address] [place], [place] [address]Dr. Tadeo UnimuBGW942 103/kbOohrlr517-491P[facility] on above: Performed By: #### CBC ####[facility] Mrlbsicsdu705397 [address] [place], [place] [address]Dr.Tadeo ChangRBC4.21 106/ulNormal4.20-5.40The [facility] CenterComascension [facility]org[facility] on above:Performed By: #### CBC ####[facility] Ncikkbtlxo134[address] [place], [place] [address]Dr.Tadeo ChangWBC5.9 103/ul Normal4.0-11.0The [facility] on above:Performed By: #### CBC ####[facility] Mwxxandrao840[address] [place], [place] [address]Dr. Tadeo ChangCT ABD/PELV W CONon 94-71-3836JL ABD/PELV W CONNormalClinton [facility] URINE PROFILEon 91-76-1899Gosiighag Ql (U)NegativeNormalNEGATIVEMount St. Mary HospitalComment on above:Performed By: #### KAROL BARBOSA ####[facility] Mwzoduldrg4[address] [place] [address]Dr. Yilan Smyth Clarity (U)CLOUDYAbnormalCLEARThe Lanett HospitalComment on above:Performed By: #### KAROL BARBOSA ####[facility] Ccrlwdqyxz9[address] [place], [place] [address]Dr. Yilan ChangColor (U)LT. YELLOWNormalYELLOWMount St. Mary HospitalComment on above:Performed By: #### KAROL BARBOSA ####[facility] Jzoyagdejl60[address] [place], [place] [address]r. Tadeo Brunner A micrscopic examination will be performed if indicated.NormalThe Lanett HospitalComment on above:Performed By: #### KAROL BARBOSA ####[facility] Ywuyyzegrf05[address] [place], [place] [address]r. Yilan ChangGlucose Ql (U) NegativeNormalNEGATIVEMount St. Mary HospitalComment on above:Performed By: #### KAROL BARBOSA ####[facility] Phydmetldt5601[address] [place], [place] [address]Dr. Margotlan ChangHemoglobin Ql (U)TRACE-INTACTAbnormalNEGATIVEMount St. Mary HospitalComment on above:Performed By: #### SANDRO BARBOSARO ####[facility] Zokknvmiwg[address] [place], [place] [address]Dr. Yilan ChangKetones Ql (U) NegativeNormalNEGATIVEFirelands Regional Medical Center South Campus HospitalComment on above:Performed By: #### SANDRO BARBOSARO ####[facility] Qecsuzcneb0064[address] [place], [place] [address]Dr. Yilan ChangLEUKOCYTESSMALLAbnormalNEGATIVEMount St. Mary HospitalComment on above:Performed By: #### KAROL BARBOSA ####[facility] Tooadnplab[address] [place], [place] [address]Dr. Yilan ChangNitrite Ql (U)NegativeNormal NEGATIVEThe [facility] CenterComment on above:Performed By: #### KAROL BARBOSA ####[facility] Vmxughcfaw4144 [place], [place]Dr. Tadeo ChangpH (U)6.0 [pH]Normal5-9The [facility] CenterComment on above: Performed By: #### KAROL BARBOSA ####[facility] Wpclzypshr60[address] [place], [place] [address]Dr. Margotnicole HajaSPEC GRAVITY1.953Ngpmee3.005-<=1.025The [facility] CenterComment on above:Performed By: #### KAROL BARBOSA ####[facility] Aymueivgft1957 [place], [place]Dr. Tadeo HajaUA PROTEINNegativeNormalNEGATIVE/ TRACEThe [facility] HospitalComment on above: Performed By: #### KAROL BARBOSA ####[facility] Btejwlnesz[address] [place], [place] [address]Dr. Tadeo HajaUR MICRO INDINDICATEDNormalThe [facility] CenterComment on above:Performed By: #### KAROL BARBOSA ####[facility] Eyadxjpove7167[address] [place], [place] [address]Dr. Tadeo HajaUrobilinogen Qn (U)0.2 {Benito'U}/dLNormal0.2 - 1.0The [facility] CenterComment on above: Performed By: #### SANDRO BARBOSARO ####[facility] Fvemktbmzm920[address] [place], [place] [address]Dr. Tadeo ChangLIPASEon 05-53-3586Jaxwgx [Catalytic activity/Vol]100.0 U/BWcomjv96.0-393.0The [facility] CenterComment on above: Performed By: #### VIJI, LIPA ####[facility] Guxoqkytam[address] [place] [address]Dw. Tadeo ChangPROF 14(COMP METB)on 04-23-8601Neujwaf [Mass/Vol]3.3 g/dLCritically low3.4-5.0The [facility] CenterComment on above: Performed By: #### CMP ####[facility] Hvqsjnomdd313[address] [place], [place] [address]Dr.Yilan ChangAlbumin/Globulin [Mass ratio]0.9 {ratio} NormalThe [facility] CenterComment on above:Performed By: #### CMP ####[facility] Ofglbwfmup1440[address] [place], [place] [address]Dr.Yilan ChangALP [Catalytic activity/Vol]140 U/LCritically nbcr53-456Mur [facility] CenterComment on above:Performed By: #### CMP ####[facility] Keaaojxfne1026[address] [place], [place] [address]Dr.Yilan ChangALT [Catalytic activity/Vol]23 U/LNormal 14-59The [facility] CenterComment on above:Performed By: #### CMP ####[facility] Akoqtkblvr317[address] [place], [place] [address]Dr.Yilan ChangAnion gap [Moles/Vol]11.6 mmol/LNormalThe [facility] CenterComment on above:Performed By: #### CMP ####[facility] Jtcwomosor919[address] [place], [place] [address]Dr.Yilan ChangAST [Catalytic activity/Vol]18 U/IPeyjpc27-44Onm [facility] CenterComment on above:Performed By: #### CMP ####[facility] Tjmtzpdpxm280[address] [place], [place] [address]Dr.Yilan ChangBilirubin [Mass/Vol]0.2 mg/dLNormal0.2-1.0The [facility] CenterComment on above:Performed By: #### CMP ####[facility] Wclevcrcyy8623[address] [place], [place] [address]Dr.Yilan ChangCalcium [Mass/Vol]8.8 mg/dLNormal8.5-10.1The [facility] CenterComment on above:Performed By: #### CMP ####[facility] Eglmcjxexi630[address] [place], [place] [address]Dr.Yilan ChangChloride [Moles/Vol]109 mmol/LCritically qzzh91-034KffMount St. Mary HospitalComment on above: Performed By: #### CMP ####[facility] Nfkkcnfglq24[address] [place] [address]Dr.Yilan ChangCO2 [Moles/Vol]26.3 mmol/LNormal 21.0-32.0The [facility] CenterComment on above:Performed By: #### CMP ####[facility] Zqefmyomgd0096 [place] [address]Dr. Yilan ChangCreatinine [Mass/Vol]0.81 mg/dLNormal0.55-1.02[facility] Comment on above:Performed By: #### CMP ####[facility] Jazxuzjyrp105[address] [place], [place] [address]Dr.Yilan ChangEGFR-AF DJIBOUTIAN>60Normal>=60 The [facility] CenterComment on above:Performed By: #### CMP ####[facility] Idyzuzkgjj6940[address] [place], [place] [address]Dr.Yilan ChangEGFR- NON AF DJIBOUTIAN>60Normal>=60Mount St. Mary HospitalComment on above:Performed By: #### CMP ####[facility] Oowxiujyuf850[address] [place], [place] [address]Dr.Yilan ChangGlobulin (S) [Mass/Vol]3.7 g/dLrmalThDayton VA Medical Center Comment on above:Performed By: #### CMP ####[facility] Uiwoevbzbc885[address] [place], [place] [address]Dr.Yilan ChangGlucose [Mass/Vol]90 mg/dL Ryfxcg89-186Col [facility] CenterComment on above:Performed By: #### CMP ####[facility] Zwihrjqxyn168[address] [place], [place] [address]Dr. Yilan ChangPotassium [Moles/Vol]3.9 mmol/LNormal3.5-5.1[facility] Comment on above:Performed By: #### CMP ####[facility] Rqehwutqql275[address] [place], [place] [address]Dr.Yilan ChangProtein [Mass/Vol]7.0 g/dL Normal6.4-8.2Mount St. Mary HospitalComment on above:Performed By: #### CMP ####[facility] Awofvwlilp9[address] [place] [address]Dr. Yilan ChangSodium [Moles/Vol]143 mmol/TZegwfg180-217Ugu [facility] CenterComment on above:Performed By: #### CMP ####[facility] Ykzkkyxluj7716[address] [place], [place] [address]Dr.Yilan ChangUrea nitrogen [Mass/Vol]12.0 mg/dLNormal 7.0-18.0The [facility] CenterComment on above:Performed By: #### CMP ####[facility] Uoujjkdvqg187[address] [place], [place] [address]Dr. Yilan ChangUrea nitrogen/Creatinine [Mass ratio]14.8 mg/mgNoCincinnati VA Medical CenterComment on above:Performed By: #### CMP ####[facility] Hsouywmfcj6435[address] [place], [place] [address]Dr.Tadeo ChangURINE MICROSCOPIC ONLYon 24-10-8383SZKHSVHLDGBHUGldbisctMFNO SEENMount St. Mary Hospital Comment on above:Performed By: #### SANDRO BARBOSARO ####[facility] Kaijihlxnc325[address] [place], [place] [address]Dr. Tadeo ChangBacteria identified Cx Nom (U)INDICATEDNoCincinnati VA Medical CenterComment on above: Performed By: #### SANDRO BARBOSARO ####[facility] Nguqimagez5387 [place] [id number]. Tadeo ChangCASTNONE SEENNormalNONE SEENMount St. Mary HospitalComment on above:Performed By: #### CHELSEY UMICRO ####[facility] Qdwwokumyl90[address] [place], [place] [address]Dr. Tadeo ChangCrystals LM Nom (Urine sed)NONE SEENNormalNONE SEENMount St. Mary HospitalComment on above: Performed By: #### CHELSEY UMICRO ####[facility] Bkjjfcqqpd7129 [place] [id number]. Tadeo ChangEpithelial cells LM Ql (Urine sed)RARE NormalNONE SEEN /RAREThe [facility] CenterComment on above:Performed By: #### SANDRO BARBOSARO ####[facility] Oxauhrjavh44[address] [place] [address]Dr. Margotnicole HajaMUCOUSTRACEAbnormalNONE SEENThe [facility] CenterComment on above:Performed By: #### RANDI BARBOSAICRO ####[facility] Bsaebxsvvg9[address] [place], [place] [address]Dr. Tadeo DkmasAHN0-1Rzocue6-2Zui [facility] CenterComment on above:Performed By: #### CHELSEY ICRO ####[facility] Yjoyqqvtyc[address] [place], [place] [address]r. Tadeo ChangWBC2-5Abnormal NONE SEENThe [facility] CenterComment on above:Performed By: #### SANDRO BARBOSARO ####[facility] Ydmhyabhti[address] [place], [place] [address]r. Tadeo ChangAMYLASEon 02-20-2811Ttaazfj [Catalytic activity/Vol]61 U/LNormal 25-115The [facility] CenterComment on above:Performed By: #### VIJI, CMP, LIPA ####[facility] Yoihfjydyt8538[address] [place], [place] [address]Dr. Tadeo SmythCBC AUTO DIFFon 26-53-6174ZQUP #0.0 103/ulNormal0.0-0.1The [facility] CenterComment on above:Performed By: #### CBC ####[facility] Ymwupuahtd37[address] [place], [place] [address]Dr.Tadeo SmythBasophils/100 WBC (Bld)0.5 %Normal0.2-2.0The [facility] Springfieldment on above:Performed By: #### CBC ####[facility] Pjgsvxlcov630[address] [place], [place] [address]Dr.Yilan ChangEO #0.3 103/ulNormal0.0-0.7The [facility] CenterComment on above:Performed By: #### CBC ####[facility] Qjnvzkzufd0460 [place] [address]Dr.Tadeo ChangEosinophils/100 WBC (Bld)4.7 %Normal 0.9-7.0The [facility] CenterComment on above:Performed By: #### CBC ####[facility] Ptilzovbfo55[address] [place], [place] [address]Dr.Tadeo Smyth Erythrocyte distribution width (RBC) [Ratio]13.2 %Jbrsew29.0-15.0The [facility] CenterComment on above:Performed By: #### CBC ####[facility] Ilubznamam0360[address] [place], [place] [address]Dr.Tadeo SmythHematocrit (Bld) [Volume fraction]36.9 %Jbxkkc83.0-48.0The [facility] CenterComment on above:Performed By: #### CBC ####[facility] Quvmmydneh287[address] [place], [place] [address]Dr.Tadeo SmythHemoglobin (Bld) [Mass/Vol]11.9 g/dL Critically low12.0-16.0The [facility] CenterComment on above:Performed By: #### CBC ####[facility] Nwqaipeaie0460[address] [place], [place] [address]Dr. Tadeo ChangIG #0.01 10e3/ulNormal0.00-0.03The [facility] CenterComment on above: Performed By: #### CBC ####[facility] Ozomiuzhow7799[address] [place], [place] [address]Dr.Tadeo ChangIG %0.2 %Normal0.0-0.5The [facility] CenterComment on above:Performed By: #### CBC ####[facility] Ynhoepzzfx9865[address] [place], [place] [address]Dr.Tadeo ChangLYMPH #2.3 103/ulNormal1.2-3.8The [facility] CenterComment on above:Performed By: #### CBC ####[facility] Wvkvaazkei700[address] [place], [place] [address]Dr. Tadeo ChangLymphocytes/100 WBC (Bld)37.3 %Iapwkc26.5-60.0The [facility] Comment on above:Performed By: #### CBC ####[facility] Vqnuteoeju12[address] [place] [address]Dr.Tadeo SmythMANUAL DIFF REQNONormalThe [facility] CenterComment on above:Performed By: #### CBC ####[facility] Fbrmjmywrf9310[address] [place], [place] [address]Dr.Tadeo HajaH (RBC) [Entitic mass]29.0 wfBryraa89.7-34.0The [facility] HospitalComment on above: Performed By: #### CBC ####[facility] Vtutukevrp9401[address] [place], [place] [address]Dr.Margotnicole SmythMCHC (RBC) [Mass/Vol]32.2 g/dLNormal 29.9-35.2The [facility] CenterComment on above:Performed By: #### CBC ####[facility] Yqsuroxdaw939[address] [place], [place] [address]Dr. Tadeo SmythV (RBC) [Entitic vol]90.0 fWGdibbq84.0-99.0The [facility] Comment on above:Performed By: #### CBC ####[facility] Yhcvinznpl2314[address] [place], [place] [address]Dr.Tadeo SmythMONO #0.4 103/ulNormal0.3-0.8 The [facility] CenterComment on above:Performed By: #### CBC ####[facility] Pcuzvwqeet211[address] [place], [place] [address]Dr.Tadeo Smyth Monocytes/100 WBC (Bld)6.8 %Normal1.7-12.0The [facility] CenterComment on above: Performed By: #### CBC ####[facility] Uvdzuozmvs4032[address] [place], [place] [address]Dr.Tadeo SmythNEUT #3.2 103/ulNormal1.4-6.5The [facility] CenterComment on above:Performed By: #### CBC ####[facility] Iskmbooczt5316[address] [place], [place] [address]Dr.Tadoe SmythNeutrophils/100 WBC (Bld)50.5 %Pmmjkk28.0-75.0The [facility] CenterComment on above:Performed By: #### CBC ####[facility] Kqwueuwcah79[address] [place], [place] [address]Dr.Tadeo SmythPlatelet mean volume (Bld) [Entitic vol]8.9 fLCritically low 9.5-13.5The [facility] CenterComment on above:Performed By: #### CBC ####[facility] Fdvuoxhkty[address] [place], [place] [address]Dr. Margotnicole UcyheFSA906 103/ocCfktmg419-105Oql [facility] CenterComment on above: Performed By: #### CBC ####[facility] Pwlhlqxeel[address] [place], [place] [address]Dr.Tadeo SmythRBC4.10 106/ulCritically low4.20-5.40The [facility] CenterComment on above:Performed By: #### CBC ####[facility] Spffecskgy8880[address] [place], [place] [address]Dr.Margotnicole HajaWBC6.2 103/ul Normal4.0-11.0[facility]. [facility] HospitalComment on above:Performed By: #### CBC ####[facility] Cagironcyn3245[address] [place], [place] [address]Dr. Tadeo SmythCT ABD/PELV W CONon 97-30-6329ML ABD/PELV W CONNormalClinton Memorial Hospital URINE PROFILEon 61-84-8938Otuwjvrdw Ql (U)NegativeNormalNEGATIVEMount St. Mary HospitalComment on above:Performed By: #### KAROL BARBOSA ####[facility] Hfgndsrecc[address] [place], [place] [address]Dr. Tadeo Smyth Clarity (U)CLEARNormalCLEARMount St. Mary HospitalComment on above:Performed By: #### SANDRO BARBOSARO ####[facility] Tbvznebmkg175[address] [place], [place] [address]Dr. Tadeo SmythColor (U)LT. YELLOWNormalYELLOWMount St. Mary Hospital Comment on above:Performed By: #### KAROL BARBOSA ####[facility] Shzkcnqltk7[address] [place], [place] [address]r. Yilan ChangERUAHDA micrscopic examination will be performed if indicated.NormalThe [facility] CenterComment on above:Performed By: #### KAROL BARBOSA ####[facility] Xtblgbedkl60[address] [place] [address]Dr. Yilan ChangGlucose Ql (U) NegativeNormalNEGATIVEThe [facility] HospitalComment on above:Performed By: #### KAROL BARBOSA ####[facility] Ludwpckpka437[address] [place], [place] [address]Dr. Yilan ChangHemoglobin Ql (U)TRACE-INTACTAbnormalNEGATIVEMount St. Mary HospitalComment on above:Performed By: #### KAROL BARBOSA ####[facility] Hkehffykme[address] [place], [place] [address]r. Yilan ChangKetones Ql (U) NegativeNormalNEGATIVEThe [facility] CenterComment on above:Performed By: #### KAROL BARBOSA ####[facility] Vjwayhqoxe[address] [place], [place] [address]Dr. Yilan ChangLEUKOCYTESNegativeNormalNEGATIVEMount St. Mary HospitalComment on above:Performed By: #### KAROL BARBOSA ####[facility] Mxhuspxozx[address] [place], [place] [address]r. Yilan ChangNitrite Ql (U)NegativeNormal NEGATIVEMount St. Mary HospitalComment on above:Performed By: #### KAROL BARBOSA ####[facility] Gllispsnek[address] [place], [place] [address]Dr. Yilan ChangpH (U)6.5 [pH]Normal5-9The [facility] CenterComment on above: Performed By: #### KAROL BARBOSA ####[facility] Fceiqdddsx[address] [place], [place] [address]Dr. Yilan ChangSPEC GRAVITY1.342Cgrvlw8.005-<=1.025The [facility] CenterComment on above:Performed By: #### KAROL BARBOSA ####[facility] [address] Margotlan ChangUA PROTEINNegativeNormalNEGATIVE/ TRACEThe [facility] CenterComment on above: Performed By: #### KAROL BARBOSA ####[facility] [address]qknr[address] Tadeo ChangUR MICRO INDINDICATEDNormalThe [facility] CenterComment on above:Performed By: #### KAROL BARBOSA ####[facility] [address]bigq[address] Margotnicole HajaUrobilinogen Qn (U)0.2 {Benito'U}/dLNormal0.2 - 1.0The [facility] CenterComment on above: Performed By: #### KAROL BARBOSA ####[facility] [address]faqzc[address] Tadeo ChangLIPASEon 98-96-5738Mhlnjf [Catalytic activity/Vol]81.0 U/AVokkbu62.0-393.0The [facility] CenterComment on above: Performed By: #### VIJI, CMP, LIPA ####[facility] Olqmrzrcnb[address] [place] [address]Dr. Margotlan ChangPROF 14(COMP METB)on 63-07-3488Kivfgsx [Mass/Vol]3.6 g/dLNormal3.4-5.0The [facility] CenterComment on above:Performed By: #### VIJI, CMP, LIPA ####[facility] Mugzqinzag[address] [place] [address]Dr. Tadeo ChangAlbumin/Globulin [Mass ratio]1.0 {ratio}NormalThe [facility] CenterComment on above:Performed By: #### VIJI, CMP, LIPA ####[facility] Ioottxfchd[address] [place] [address]Dr. Margotlan ChangALP [Catalytic activity/Vol]150 U/LCritically zqvz66-178Eru [facility] CenterComment on above:Performed By: #### VIJI, CMP, LIPA ####[facility] [address]whgwlbljc[address] [place] [address]Dr. Yilan ChangALT [Catalytic activity/Vol]23 U/GKmnvce84-42Uye [facility] CenterComment on above: Performed By: #### VIJI, CMP, LIPA ####[facility] Zxeaxttzvf[address] [place] [address]Dr. Yilan ChangAnion gap [Moles/Vol]13.2 mmol/LNormal The [facility] CenterComment on above:Performed By: #### VIJI, CMP, LIPA ####[facility] Ymgkfeqsxt[address] [place] [address]Dr. Yilan ChangAST [Catalytic activity/Vol]12 U/LCritically noz52-23Vgn [facility] CenterComment on above:Performed By: #### VIJI, CMP, LIPA ####[facility] Levrgwcydy[address] [place] [address]Dr. Yilan ChangBilirubin [Mass/Vol]0.1 mg/dLCritically low0.2-1.0The [facility] CenterComment on above: Performed By: #### VIJI, CMP, LIPA ####[facility] Tkezmfmsvy[address] [place] [address]Dr. Yilan ChangCalcium [Mass/Vol]9.0 mg/dLNormal 8.5-10.1The [facility] CenterComment on above:Performed By: #### VIJI, CMP, LIPA ####[facility] Qcwbxlmykf28[address] [place] [address]Dr. Yilan ChangChloride [Moles/Vol]104 mmol/DLijevt02-767Xty [facility] Comment on above:Performed By: #### VIJI, CMP, LIPA ####[facility] Uvvrdskpvr[address] [place] [address]Dr. Yilan ChangCO2 [Moles/Vol]26.6 mmol/VZyymid78.0-32.0The [facility] CenterComment on above: Performed By: #### VIJI, CMP, LIPA ####[facility] [address] [place] [address]Dr. Yilan ChangCreatinine [Mass/Vol]0.97 mg/dLNormal 0.55-1.02The [facility] CenterComment on above:Performed By: #### VIJI, CMP, LIPA ####[facility] Ty[address]yqo[address] [place] [address]Dr. Yilan ChangEGFR-AF DJIBOUTIAN>60Normal>=60The [facility] CenterComment on above: Performed By: #### VIJI, CMP, LIPA ####[facility] Yz[address]qlal[address] [place] [address]Dr. Yilan ChangEGFR-NON AF GHRRBHVB60 mL/min/1.73m2 Normal>=60The [facility] CenterComment on above:Performed By: #### VIJI, CMP, LIPA ####[facility] Ffsnroqxau[address] [place], [place] [address]Dr. Yilan ChangGlobulin (S) [Mass/Vol]3.7 g/dLNormalThe [facility] Comment on above:Performed By: #### VIJI, CMP, LIPA ####[facility] Egbevtwfgu[address] [place], [place] [address]Dr. Yilan ChangGlucose [Mass/Vol]109 mg/dLCritically gxqh34-368Aha [facility] CenterComment on above: Performed By: #### VIJI, CMP, LIPA ####[facility] Elvtdhveiy[address] [place], [place] [address]Dr. Yilan ChangPotassium [Moles/Vol]3.8 mmol/LNormal 3.5-5.1The [facility] CenterComment on above:Performed By: #### VIJI, CMP, LIPA ####[facility] Mhjiepzeeg[address] [place], [place] [address]Dr. Yilan ChangProtein [Mass/Vol]7.3 g/dLNormal6.4-8.2The [facility] CenterComment on above:Performed By: #### VIJI, CMP, LIPA ####[facility] Dcouirmbzy[address] [place], [place] [address]Dr. Yilan ChangSodium [Moles/Vol]140 mmol/L Yjypfb830-548Ron [facility] CenterComment on above:Performed By: #### VIJI, CMP, LIPA ####[facility] Enksrausbe[address] [place] [id number]. Margotlan ChangUrea nitrogen [Mass/Vol]21.0 mg/dLCritically high7.0-18.0The [facility] CenterComment on above:Performed By: #### VIJI, CMP, LIPA ####[facility] [address] [place] [id number]. Margotlan ChangUrea nitrogen/Creatinine [Mass ratio]21.6 mg/mgNoCincinnati VA Medical CenterComment on above:Performed By: #### VIJI, CMP, LIPA ####[facility] [address] [place] [address]Dr. Tadeo ChangURINE MICROSCOPIC ONLYon 45-18-2777RHKDLTSINUBZ SEENNormalNONE SEENMount St. Mary HospitalComment on above:Performed By: #### CHELSEY, ICRO ####[facility] [address]vc[address] [place] [address]Dr. Tadeo ChangBacteria identified Cx Nom (U)NOT INDICATEDNoCincinnati VA Medical CenterComment on above: Performed By: #### CHELSEY, ICRO ####[facility] Btkmqlkmlq[address] [place] [address]Dr. Tadeo ChangCASTNONE SEENNormalNONE SEENMount St. Mary HospitalComascension borg[facility] hospital on above:Performed By: #### CHELSEY, UMICRO ####[facility] Jpaypivejj[address] [place] [address]Dr. Tadeo ChangCrystals LM Nom (Urine sed)NONE SEENNormalNONE SEENMount St. Mary HospitalComment on above: Performed By: #### CHELSEY, UMICRO ####[facility] K[address]epfdoqxb[address] [place] [address]Dr. Tadeo ChangEpithelial cells LM Ql (Urine sed)FEW AbnormalNONE SEEN /RAREThe [facility] CenterComment on above:Performed By: #### CHELSEY, UMICRO ####[facility] [address]ophientdl[address] [place] [address]Dr. Tadeo ChangMUCOUSNONE SEENNormalNONE SEENThe [facility] HospitalComasc[facility]org[facility] hospital on above:Performed By: #### ERURANDI HairstonICRO ####[facility] Mnfpwoxosp[address] [place], [place]Dr. Tadeo CbjxxQHV5-1Hewtco3-8Lbj [facility] on above:Performed By: #### ERUFred UMICRO ####[facility] Qcrwpzgyxg1777 [place], [place]Dr. Tadeo ChangWBCNONE SEEN NormalNONE SEENMount St. Mary HospitalComascension borgess hospital on above:Performed By: #### SANDRO BARBOSARO ####[facility] Jlddukrnry[address] [place] [address]Dr. Tadeo SmythMICRO OTHER TESTSOrdered By: Guillermo Rocha on 21-69-6456Yxllx WBC LactoferrinNegative (04/29/22 8:00 AM)NormalNegativeMER[facility] [place] SeroCULTURE URINEon 39-04-0401PVRRSKL URINENormalThe [facility] CenterComascension borg[facility] hospital on above:Performed By: #### URCX ####[facility] Yxjtnwsswa[address] [place], [place] [address]Dr. Tadeo SmythCBC AUTO DIFFon 87-11-1691CBMB #0.0 103/ulNormal0.0-0.1The [facility] on above:Performed By: #### CBC ####[facility] Qijvhgtdwk[address] [place], [place] [address]Dr.Tadeo ChangBasophils/100 WBC (Bld)0.4 %Normal0.2-2.0The [facility] CenterComasc[facility]org[facility] hospital on above:Performed By: #### CBC ####[facility] Mzhyvukrdt[address] [place], [place] [address]Dr.Margotlan ChangEO #0.3 103/ulNormal0.0-0.7The [facility] CenterComasc[facility]org[facility] hospital on above:Performed By: #### CBC ####[facility] Uarqswjohf66[address] [place], [place] [address]Dr.Tadeo ChangEosinophils/100 WBC (Bld)5.1 %Normal 0.9-7.0The [facility] CenterComment on above:Performed By: #### CBC ####[facility] Rulxvdspdh12[address] [place], [place] [address]Dr.Tadeo Smyth Erythrocyte distribution width (RBC) [Ratio]12.8 %Blfilw58.0-15.0The [facility] CenterComment on above:Performed By: #### CBC ####[facility] Aobnbcnfce88[address] [place], [place] [address]Dr.Tadeo SmythHematocrit (Bld) [Volume fraction]36.4 %Imraiq45.0-48.0The [facility] CenterComment on above:Performed By: #### CBC ####[facility] Ymqyauyrhj03[address] [place], [place] [address]Dr.Tadeo SmythHemoglobin (Bld) [Mass/Vol]12.0 g/dL Bfzpia51.0-16.0The [facility] CenterComment on above:Performed By: #### CBC ####[facility] Cmpblhfxnd109[address] [place], [place] [address]Dr. Tadeo SmythIG #0.02 10e3/ulNormal0.00-0.03The [facility] CenterComment on above: Performed By: #### CBC ####[facility] Wnsjpyxvuv10[address] [place], [place] [address]Dr.Tadeo SmythIG %0.4 %Normal0.0-0.5The [facility] CenterComment on above:Performed By: #### CBC ####[facility] Ypuzmzkski71[address] [place], [place] [address]Dr.Tadeo SmythLYMPH #1.4 103/ulNormal1.2-3.8The [facility] CenterComment on above:Performed By: #### CBC ####[facility] Mjvrzntbzk301[address] [place], [place] [address]Dr. Tadeo SmythLymphocytes/100 WBC (Bld)25.5 %Zgrmsw98.5-60.0The [facility] Comment on above:Performed By: #### CBC ####[facility] Barxrxvela4601[address] [place], [place] [address]Dr.Tadeo SmythMANUAL DIFF REQNONormalThe [facility] CenterComment on above:Performed By: #### CBC ####[facility] H[address]prvjykc[address] [place] [address]Dr.Tadeo SmythH (RBC) [Entitic mass]29.1 saKbymaf57.7-34.0The [facility] HospitalComment on above: Performed By: #### CBC ####[facility] Gfspwdboiu8530[address] [place], [place] [address]Dr.Tadeo SmythHC (RBC) [Mass/Vol]33.0 g/dLNormal 29.9-35.2The [facility] HospitalComment on above:Performed By: #### CBC ####[facility] Zdyoignhgd405[address] [place], [place] [address]Dr. Tadeo SmythV (RBC) [Entitic vol]88.3 xKXveeke85.0-99.0The [facility] Comment on above:Performed By: #### CBC ####[facility] Evdrwtopma400[address] [place], [place] [address]Dr.Tadeo SmythMONO #0.4 103/ulNormal0.3-0.8 The [facility] CenterComment on above:Performed By: #### CBC ####[facility] Xnipxdwxnp419[address] [place], [place] [address]Dr.Tadeo Smyth Monocytes/100 WBC (Bld)7.1 %Normal1.7-12.0The [facility] CenterComment on above: Performed By: #### CBC ####[facility] Aatizggikm[address] [place], [place] [address]Dr.Tadeo SmythNEUT #3.4 103/ulNormal1.4-6.5The [facility] CenterComment on above:Performed By: #### CBC ####[facility] Mxmnzywhwf35[address] [place], [place] [address]Dr.Tadeo SmythNeutrophils/100 WBC (Bld)61.5 %Sahdwc14.0-75.0The [facility] CenterComment on above:Performed By: #### CBC ####[facility] Atkhwvkwdr[address] [place], [place] [address]Dr.Tadeo SmythPlatelet mean volume (Bld) [Entitic vol]8.8 fLCritically low 9.5-13.5The [facility] CenterComment on above:Performed By: #### CBC ####[facility] [address]jdrmtg[address] [place] [address]Dr. Tadeo AhvvvZOV565 103/xzYbvzfu132-890Czi [facility] CenterComment on above: Performed By: #### CBC ####[facility] Xkdsdbeepx[address] [place] [address]Dr.Tadeo ChangRBC4.12 106/ulCritically low4.20-5.40The [facility] CenterComment on above:Performed By: #### CBC ####[facility] Ylckegmyfp[address] [place] [address]Dr.Tadeo ChangWBC5.5 103/ul Normal4.0-11.0The [facility] CenterComment on above:Performed By: #### CBC ####[facility] Uspxlfrdwb90[address] [place], [place] [address]Dr. Tadeo ChangPROF 14(COMP METB)on 38-34-8120Wphnsqt [Mass/Vol]3.1 g/dLCritically low3.4-5.0The [facility] CenterComment on above:Performed By: #### CMP ####[facility] Medfxaluuf34[address] [place], [place] [address]Dr. Margotnicole ChangAlbumin/Globulin [Mass ratio]0.9 {ratio}NormalThe [facility] Comment on above:Performed By: #### CMP ####[facility] [address]fdapwvnfr[address] [place] [address]Dr.Margotlan ChangALP [Catalytic activity/Vol] 119 U/LCritically fpwh13-994Lcd [facility] CenterComment on above:Performed By: #### CMP ####[facility] Hvpohkauql3147[address] [place], [place] [address]Dr.Yilan ChangALT [Catalytic activity/Vol]17 U/AUupusl03-09Han [facility] CenterComment on above:Performed By: #### CMP ####[facility] Swbxqtaabh[address] [place] [id number].Yilan ChangAnion gap [Moles/Vol]12.0 mmol/LNormalThe [facility] CenterComment on above:Performed By: #### CMP ####[facility] Iatggiyuzz[address] [place], [place] [address]Dr.Yilan ChangAST [Catalytic activity/Vol]16 U/VLlklqx96-16Lww [facility] CenterComment on above:Performed By: #### CMP ####[facility] Vomvfjeabg68[address] [place], [place] [address]Dr.Yilan ChangBilirubin [Mass/Vol]0.4 mg/dLNormal0.2-1.0The [facility] CenterComment on above:Performed By: #### CMP ####[facility] Tpuvsjmgjk75[address] [place], [place] [address]Dr.Yilan ChangCalcium [Mass/Vol]8.9 mg/dLNormal8.5-10.1The [facility] CenterComment on above:Performed By: #### CMP ####[facility] Qwqqodxogt67[address] [place], [place] [address]Dr.Yilan ChangChloride [Moles/Vol]107 mmol/KCkdnsy86-074Mut [facility] CenterComment on above:Performed By: #### CMP ####[facility] Wmfnejdhfw394[address] [place], [place] [address]Dr.Yilan ChangCO2 [Moles/Vol]26.9 mmol/YNuyial32.0-32.0The [facility] CenterComment on above:Performed By: #### CMP ####[facility] Xtadskwtbh17[address] [place], [place] [address]Dr.Yilan ChangCreatinine [Mass/Vol]0.82 mg/dLNormal0.55-1.02The [facility] CenterComment on above: Performed By: #### CMP ####[facility] Hxdnvomgjv8212[address] [place], [place] [address]Dr.Yilan ChangEGFR-AF DJIBOUTIAN>60Normal>=60The [facility] CenterComment on above:Performed By: #### CMP ####[facility] Yugxzimjwg[address] [place] [id number].Yilan ChangEGFR-NON AF DJIBOUTIAN>60Normal>=60The [facility] CenterComascension [facility]org[facility] hospital on above:Performed By: #### CMP ####[facility] Szyyrnpijr[address] [place] [address]Dr. Yilan ChangGlobulin (S) [Mass/Vol]3.5 g/dLNormWilson Memorial HospitalComment on above:Performed By: #### CMP ####[facility] Wjxohmhnat447[address] [place], [place] [address]Dr.Yilan ChangGlucose [Mass/Vol]104 mg/lSUdztyp42-889 The [facility] CenterComasc[facility]org[facility] on above:Performed By: #### CMP ####[facility] Vqauuquyva67[address] [place], [place] [address]Dr.Yilan Smyth Potassium [Moles/Vol]3.9 mmol/LNormal3.5-5.1The [facility] CenterComasc[facility] on above:Performed By: #### CMP ####[facility] Twqhmscbxa407[address] [place], [place] [address]Dr.Yilan ChangProtein [Mass/Vol]6.6 g/dLNormal6.4-8.2 The [facility] CenterComasc[facility] on above:Performed By: #### CMP ####[facility] Wthdgcbwfe452[address] [place], [place] [address]Dr.Yilan ChangSodium [Moles/Vol]142 mmol/UNgdiwp878-173Mjb [facility] CenterComasc[facility] on above: Performed By: #### CMP ####[facility] Wyqzhivctj27[address] [place], [place] [address]Dr.Yilan ChangUrea nitrogen [Mass/Vol]5.0 mg/dL Critically low7.0-18.0The [facility] CenterComasc[facility] on above:Performed By: #### CMP ####[facility] Yjmudsqphv119[address] [place], [place] [address]Dr. Yilan ChangUrea nitrogen/Creatinine [Mass ratio]6.1 mg/mgNormalThDayton VA Medical CenterComascension borgess hospital on above:Performed By: #### CMP ####[facility] Xxsycktkpl[address] [place] [address]Dr.Tadeo SmythCBC AUTO DIFFon 43-75-9958YDYS #0.0 103/ulNormal0.0-0.1The [facility] CenterComment on above: Performed By: #### CBC ####[facility] Xvzkqlsmfh[address] [place], [place] [address]Dr.Tadeo ChangBasophils/100 WBC (Bld)0.4 %Normal 0.2-2.0The [facility] CenterComment on above:Performed By: #### CBC ####[facility] Wkbovxylxh9415[address] [place], [place] [address]Dr.Margotlan ChangEO # 0.2 103/ulNormal0.0-0.7The [facility] CenterComment on above:Performed By: #### CBC ####[facility] Vvplvwghhu045[address] [place], [place] [address]Dr. Tadeo ChangEosinophils/100 WBC (Bld)4.3 %Normal0.9-7.0The [facility] Comment on above:Performed By: #### CBC ####[facility] Gbpmkaldzh123[address] [place], [place] [address]Dr.Tadeo ChangErythrocyte distribution width (RBC) [Ratio]12.9 %Jwkpiz09.0-15.0The [facility] CenterComment on above: Performed By: #### CBC ####[facility] Emzewkmyhz[address] [place], [place] [address]Dr.Tadeo ChangHematocrit (Bld) [Volume fraction]33.8 % Critically low36.0-48.0The [facility] CenterComment on above:Performed By: #### CBC ####[facility] Dylgrcjxwj008[address] [place], [place] [address]Dr. Tadeo ChangHemoglobin (Bld) [Mass/Vol]11.1 g/dLCritically low12.0-16.0The [facility] CenterComment on above:Performed By: #### CBC ####[facility] Gmrrpvwtei9410[address] [place], [place] [address]Dr.Tadeo ChangIG #0.01 10e3/ulNormal0.00-0.03The [facility] CenterComment on above:Performed By: #### CBC ####[facility] Kgunbhapno12[address] [place], [place] [address]Dr. Tadeo SmythIG %0.2 %Normal0.0-0.5The [facility] CenterComment on above:Performed By: #### CBC ####[facility] Hetkjxgzhv593[address] [place], [place] [address]Dr.Tadeo HajaLYMPH #1.5 103/ulNormal1.2-3.8The [facility] Comment on above:Performed By: #### CBC ####[facility] Wmwpeujnwr760[address] [place], [place] [address]Dr.Margotnicole Lizzymphocytes/100 WBC (Bld)29.9 %Dzinwd07.5-60.0The [facility] CenterComment on above:Performed By: #### CBC ####[facility] Vkptiinypo9[address] [place], [place] [address]Dr. Margotnicole SmythMANUAL DIFF REQNONormalThe [facility] CenterComment on above: Performed By: #### CBC ####[facility] Dvzattfwcc64[address] [place], [place] [address]Dr.Tadeo SmythM[facility] (RBC) [Entitic mass]29.3 pgNormal 26.7-34.0The [facility] CenterComment on above:Performed By: #### CBC ####[facility] Ikzcphjgxs187[address] [place], [place] [address]Dr. Tadeo SmythHC (RBC) [Mass/Vol]32.8 g/oCKzcfyb11.9-35.2The [facility] Comment on above:Performed By: #### CBC ####[facility] Dnuoqcaefo9837[address] [place], [place] [address]Dr.Tadeo SmythV (RBC) [Entitic vol]89.2 fL Ahxrjw31.0-99.0The [facility] CenterComment on above:Performed By: #### CBC ####[facility] Uqwgrgggma8545[address] [place], [place] [address]Dr. Yilan ChangMONO #0.4 103/ulNormal0.3-0.8The [facility] HospitalComment on above: Performed By: #### CBC ####[facility] Gypdmndqtw[address] [place], [place] [address]Dr.Tadeo ChangMonocytes/100 WBC (Bld)7.8 %Normal 1.7-12.0The [facility] CenterComment on above:Performed By: #### CBC ####[facility] Nenuazdeqw287[address] [place], [place] [address]Dr. Tadeo ChangNEUT #2.8 103/ulNormal1.4-6.5The [facility] HospitalComment on above: Performed By: #### CBC ####[facility] Miqogyxmdt813[address] [place], [place] [address]Dr.Tadeo ChangNeutrophils/100 WBC (Bld)57.4 %Normal 43.0-75.0The [facility] CenterComment on above:Performed By: #### CBC ####[facility] Rxvwabqhge3600[address] [place], [place] [address]Dr. Tadeo ChangPlatelet mean volume (Bld) [Entitic vol]8.9 fLCritically low9.5-13.5 The [facility] CenterComment on above:Performed By: #### CBC ####[facility] Tktwkzazpj64[address] [place], [place] [address]Dr.Tadeo BasnbFSZ032 103/ngWimduz822-213Sfk [facility] CenterComment on above:Performed By: #### CBC ####[facility] Ngxvxhxrwi903[address] [place], [place] [address]Dr. Tadeo ChangRBC3.79 106/ulCritically low4.20-5.40The [facility] CenterComment on above:Performed By: #### CBC ####[facility] Xxfucryida953[address] [place], [place] [address]Dr.Margotlan ChangWBC4.9 103/ulNormal4.0-11.0The [facility] CenterComment on above:Performed By: #### CBC ####[facility] Rfoqgnzjgk0625[address] [place], [place] [address]Dr.Yilan ChangPROF 14(COMP METB)on 00-43-1867Dpzrsey [Mass/Vol]2.8 g/dLCritically low3.4-5.0The [facility] CenterComment on above:Performed By: #### CMP ####[facility] Lhfpgzholr[address] [place] [address]Dr.Tadeo Smyth Albumin/Globulin [Mass ratio]0.8 {ratio}NormalThe [facility] CenterComment on above:Performed By: #### CMP ####[facility] Wqqrinlqno[address] [place] [address]Dr.Yilan ChangALP [Catalytic activity/Vol]117 U/L Critically drws16-220Okj [facility] CenterComascension [facility]org[facility] hospital on above:Performed By: #### CMP ####[facility] Oxbhrmrjfu307[address] [place], [place] [address]Dr. Yilan ChangALT [Catalytic activity/Vol]13 U/LCritically wns43-92Byc [facility] CenterComment on above:Performed By: #### CMP ####[facility] Zftmtfoptp0914[address] [place], [place] [address]Dr.Yilan ChangAnion gap [Moles/Vol]8.7 mmol/LNormalThe [facility] CenterComment on above:Performed By: #### CMP ####[facility] Mnckrwybcn332[address] [place], [place] [address]Dr.Yinicole ChangAST [Catalytic activity/Vol]12 U/LCritically gff26-64Kho [facility] CenterComment on above:Performed By: #### CMP ####[facility] Hzmqvwksxx3410[address] [place], [place] [address]Dr.Yilan ChangBilirubin [Mass/Vol]0.4 mg/dLNormal0.2-1.0The [facility] CenterComment on above:Performed By: #### CMP ####[facility] Lietisglzz8[address] [place], [place] [address]Dr.Yilan ChangCalcium [Mass/Vol]8.5 mg/dLNormal8.5-10.1The [facility] CenterComment on above:Performed By: #### CMP ####[facility] [address]wezmoluju[address] [place] [id number].Yilan ChangChloride [Moles/Vol]108 mmol/LCritically lmib73-937Zen [facility] CenterComment on above: Performed By: #### CMP ####[facility] Yfyvhixsra[address] [place] [address]Dr.Yilan ChangCO2 [Moles/Vol]28.0 mmol/LNormal 21.0-32.0The [facility] CenterComment on above:Performed By: #### CMP ####[facility] Dxwxfhnean[address] [place] [address]Dr. Yilan ChangCreatinine [Mass/Vol]0.74 mg/dLNormal0.55-1.02The [facility] Comment on above:Performed By: #### CMP ####[facility] Oqmvycicub687[address] [place], [place] [address]Dr.Yilan ChangEGFR-AF DJIBOUTIAN>60Normal>=60 The [facility] CenterComment on above:Performed By: #### CMP ####[facility] Blcyejvhvg9[address] [place], [place] [address]Dr.Yilan ChangEGFR- NON AF DJIBOUTIAN>60Normal>=60The [facility] CenterComment on above:Performed By: #### CMP ####[facility] Cxthciewtk[address] [place], [place] [address]Dr.Yilan ChangGlobulin (S) [Mass/Vol]3.4 g/dLNormalThDayton VA Medical Center Comment on above:Performed By: #### CMP ####[facility] Plpeurxghg[address] [place], [place] [address]Dr.Yilan ChangGlucose [Mass/Vol]107 mg/dL Critically zgfu45-057Snl [facility] CenterComment on above:Performed By: #### CMP ####[facility] Cqityeuglt[address] [place], [place] [address]Dr. Yilan ChangPotassium [Moles/Vol]3.7 mmol/LNormal3.5-5.1The [facility] Comment on above:Performed By: #### CMP ####[facility] Imqmxqisjz4[address] [place] [id number].Yilan ChangProtein [Mass/Vol]6.2 g/dL Critically low6.4-8.2The [facility] CenterComment on above:Performed By: #### CMP ####[facility] Uofilqdbea[address] [place], [place] [address]Dr. Yilan ChangSodium [Moles/Vol]141 mmol/ETklrns748-331Utu [facility] CenterComment on above:Performed By: #### CMP ####[facility] Ramlsifxfi84[address] [place], [place] [address]Dr.Yilan ChangUrea nitrogen [Mass/Vol]7.0 mg/dLNormal 7.0-18.0The [facility] CenterComment on above:Performed By: #### CMP ####[facility] Fhbasipfuh[address] [place], [place] [address]Dr. Yilan ChangUrea nitrogen/Creatinine [Mass ratio]9.5 mg/mgNormalThe [facility] CenterComment on above:Performed By: #### CMP ####[facility] Xsjqlcnrhu[address] [place], [place] [address]Dr.Yilan ChangXR KUB 1 VIEWon 19-10-6985EH KUB 1 [facility] AUTO DIFFon 59-59-2311OEOY #0.0 103/ulNormal0.0-0.1The [facility] CenterComment on above:Performed By: #### CBC ####[facility] Jddmqjdclm[address] [place], [place] [address]Dr. Yilan ChangBasophils/100 WBC (Bld)0.7 %Normal0.2-2.0The [facility] CenterComment on above:Performed By: #### CBC ####[facility] Enulsidxfc5[address] [place], [place] [address]Dr.Yilan ChangEO #0.2 103/ulNormal0.0-0.7The [facility] CenterComasc[facility] on above:Performed By: #### CBC ####[facility] Szijngiqft[address] [place], [place] [address]Dr.Yilan ChangEosinophils/100 WBC (Bld)3.3 %Normal0.9-7.0The [facility] CenterComment on above:Performed By: #### CBC ####[facility] Mjvratullr364[address] [place], [place] [address]Dr.Tadeo ChangErythrocyte distribution width (RBC) [Ratio]13.2 %Normal 11.0-15.0The [facility] CenterComment on above:Performed By: #### CBC ####[facility] Ekxaneiubq87[address] [place], [place] [address]Dr. Tadeo ChangHematocrit (Bld) [Volume fraction]34.2 %Critically low36.0-48.0The [facility] CenterComment on above:Performed By: #### CBC ####[facility] Tdsjxpkpvx25[address] [place], [place] [address]Dr.Tadeo ChangHemoglobin (Bld) [Mass/Vol]10.8 g/dLCritically low12.0-16.0The [facility] CenterComment on above:Performed By: #### CBC ####[facility] Cidevllzln277[address] [place], [place] [address]Dr.Tadeo ChangIG #0.01 10e3/ulNormal0.00-0.03The [facility] CenterComment on above:Performed By: #### CBC ####[facility] Fhmkaddlzy076[address] [place], [place] [address]Dr.Tadeo ChangIG %0.2 %Normal 0.0-0.5The [facility] CenterComment on above:Performed By: #### CBC ####[facility] Qvceazhbog601[address] [place], [place] [address]Dr.Margotlan ChangLYMPH #1.3 103/ulNormal1.2-3.8The [facility] CenterComment on above:Performed By: #### CBC ####[facility] Kpkkrzrgbi5[address] [place], [place] [address]Dr.Tadeo ChangLymphocytes/100 WBC (Bld)28.4 %Ciyjig69.5-60.0The [facility] CenterComment on above:Performed By: #### CBC ####[facility] [address] [place] [address]Dr.Tadeo SmythMANUAL DIFF REQ NONormalThe [facility] CenterComment on above:Performed By: #### CBC ####[facility] Fzerohherk8[address] [place], [place] [address]Dr. Tadeo SmythH (RBC) [Entitic mass]28.3 bdZtyqvr55.7-34.0The [facility] Comment on above:Performed By: #### CBC ####[facility] Bnvikbsdoa375[address] [place], [place] [address]Dr.Tadeo SmythHC (RBC) [Mass/Vol]31.6 g/dL Cwfspx31.9-35.2The [facility] CenterComment on above:Performed By: #### CBC ####[facility] Mkczkbcgvd33[address] [place], [place] [address]Dr. Tadeo SmythV (RBC) [Entitic vol]89.5 nYBwcany71.0-99.0The [facility] Comment on above:Performed By: #### CBC ####[facility] Wdaflwfgve0917[address] [place], [place] [address]Dr.Tadeo SmythMONO #0.3 103/ulNormal0.3-0.8 The [facility] CenterComment on above:Performed By: #### CBC ####[facility] Sqbnxovgan697[address] [place], [place] [address]Dr.Tadeo Smyth Monocytes/100 WBC (Bld)5.5 %Normal1.7-12.0The [facility] CenterComment on above: Performed By: #### CBC ####[facility] Aeqcyvqnfh849[address] [place], [place] [address]Dr.Tadeo SmythNEUT #2.8 103/ulNormal1.4-6.5The [facility] CenterComment on above:Performed By: #### CBC ####[facility] Othqwvbliy940[address] [place], [place] [address]Dr.Tadeo SmythNeutrophils/100 WBC (Bld)61.9 %Oevxyg60.0-75.0The [facility] CenterComment on above:Performed By: #### CBC ####[facility] Ilgjzhdcgo[address] [place] [address]Dr.Tadeo SmythPlatelet mean volume (Bld) [Entitic vol]9.1 fLCritically low 9.5-13.5The [facility] CenterComment on above:Performed By: #### CBC ####[facility] Fkxnmdpcwp7[address] [place] [address]Dr. Tadeo QedvaPAG665 103/hwMaxvdb847-720Ewg [facility] CenterComment on above: Performed By: #### CBC ####[facility] Uaulfirsnr682[address] [place], [place] [address]Dr.Tadeo ChangRBC3.82 106/ulCritically low4.20-5.40The [facility] CenterComment on above:Performed By: #### CBC ####[facility] Yfjmcbbjma504[address] [place], [place] [address]Dr.Tadeo ChangWBC4.5 103/ul Normal4.0-11.0The [facility] CenterComment on above:Performed By: #### CBC ####[facility] Njjjsjtofr0680[address] [place], [place] [address]Dr. Tadeo SmythPOINT OF CARE GLUCOSEon 38-33-3943Jcwlute [Mass/Vol]84 mg/dLNormal 74-106The [facility] CenterComment on above:Performed By: #### POCGLUC ####[facility] Wofwgsckvv460[address] [place], [place] [address]Dr. Tadeo ChangPROF 14(COMP METB)on 50-89-8931Tqezjhu [Mass/Vol]2.9 g/dLCritically low3.4-5.0The [facility] CenterComment on above:Performed By: #### CMP ####[facility] Ncchbapdtm816[address] [place], [place] [address]Dr. Tadeo SmythAlbumin/Globulin [Mass ratio]0.9 {ratio}NormalThe [facility] Comment on above:Performed By: #### CMP ####[facility] Wdllthbtms1048[address] [place], [place] [address]Dr.Tadeo SmythALP [Catalytic activity/Vol] 119 U/LCritically fzhk87-582Rsh [facility] CenterComment on above:Performed By: #### CMP ####[facility] Rebplxzifd849[address] [place], [place] [address]Dr.Yilan ChangALT [Catalytic activity/Vol]15 U/ZLepayx80-32Vmk [facility] CenterComment on above:Performed By: #### CMP ####[facility] Rnpcpiadln947[address] [place], [place] [address]Dr.Yilan ChangAnion gap [Moles/Vol]7.9 mmol/LNormalThe [facility] HospitalComment on above:Performed By: #### CMP ####[facility] Lrapdrvins616[address] [place], [place] [address]Dr.Yilan ChangAST [Catalytic activity/Vol]11 U/LCritically kzu16-04Xhm [facility] CenterComment on above:Performed By: #### CMP ####[facility] Qlihtjanxx184197 [address] [place], [place] [address]Dr.Yilan ChangBilirubin [Mass/Vol]0.4 mg/dLNormal0.2-1.0The [facility] CenterComment on above:Performed By: #### CMP ####[facility] Pntitbxral129[address] [place], [place] [address]Dr.Yilan ChangCalcium [Mass/Vol]8.7 mg/dLNormal8.5-10.1The [facility] CenterComment on above:Performed By: #### CMP ####[facility] Pqcbvkzxci5201[address] [place], [place] [address]Dr.Yilan ChangChloride [Moles/Vol]109 mmol/LCritically tsol93-025Hbj [facility] CenterComment on above: Performed By: #### CMP ####[facility] Vmaeuigchu384[address] [place], [place] [address]Dr.Yilan ChangCO2 [Moles/Vol]27.9 mmol/LNormal 21.0-32.0The [facility] CenterComment on above:Performed By: #### CMP ####[facility] Nddcqyzhvs195[address] [place], [place] [address]Dr. Yilan ChangCreatinine [Mass/Vol]0.75 mg/dLNormal0.55-1.02[facility] Comment on above:Performed By: #### CMP ####[facility] Pezoytqxne[address] [place] [address]Dr.Yilan ChangEGFR-AF DJIBOUTIAN>60Normal>=60 The [facility] CenterComment on above:Performed By: #### CMP ####[facility] Lnusdpbsuw99[address] [place], [place] [address]Dr.Yilan ChangEGFR- NON AF DJIBOUTIAN>60Normal>=60[facility] HospitalComment on above:Performed By: #### CMP ####[facility] Tbeatehekh36[address] [place], [place] [address]Dr.Yilan ChangGlobulin (S) [Mass/Vol]3.3 g/dLNormalThDayton VA Medical Center Comment on above:Performed By: #### CMP ####[facility] Clsmmigyuz450[address] [place], [place] [address]Dr.Yilan ChangGlucose [Mass/Vol]95 mg/dL Mvzyow98-406Wxd [facility] CenterComment on above:Performed By: #### CMP ####[facility] Pjcxgagpjg5045[address] [place], [place] [address]Dr. Yilan ChangPotassium [Moles/Vol]3.8 mmol/LNormal3.5-5.1[facility] Comment on above:Performed By: #### CMP ####[facility] Vjkrwswfzv556[address] [place], [place] [address]Dr.Yilan ChangProtein [Mass/Vol]6.2 g/dL Critically low6.4-8.2[facility] HospitalComment on above:Performed By: #### CMP ####[facility] Nelkoimaeh5834[address] [place], [place] [address]Dr. Yilan ChangSodium [Moles/Vol]141 mmol/HQhetdx235-441Kdw [facility] CenterComment on above:Performed By: #### CMP ####[facility] Crfxhvhiah23[address] [place], [place] [address]Dr.Yilan ChangUrea nitrogen [Mass/Vol]8.0 mg/dLNormal 7.0-18.0[facility] HospitalComment on above:Performed By: #### CMP ####[facility] Fosqdzgdfi075[address] [place], [place] [address]Dr. Yilan ChangUrea nitrogen/Creatinine [Mass ratio]10.7 mg/mgNormalThDayton VA Medical CenterComment on above:Performed By: #### CMP ####[facility] Cvwttcxrlb388[address] [place], [place] [address]Dr.Yilan ChangUA (CLEAN/CATCH) SHIPFITTER/MICRO IF IND.on 38-26-0362Elgwjdteb Ql (U)NegativeNormal NEGATIVEFirelands Regional Medical Center South Campus HospitalComment on above:Performed By: #### SANDRO OSORIORO ####[facility] Prxbkwdnuc684[address] [place], [place] [address]Dr. Yilan ChangClarity (U)SL CLOUDYAbnormalCLEARThDayton VA Medical CenterComment on above:Performed By: #### SANDRO OSORIORO ####[facility] Ggtaxynqgv1818[address] [place], [place] [address]Dr. Yilan ChangColor (U)LT. YELLOWNormal YELLOWFirelands Regional Medical Center South Campus HospitalComment on above:Performed By: #### SANDRO OSORIORO ####[facility] Eedgqlndzq6[address] [place], [place] [address]Dr. Yilan ChangGlucose Ql (U)NegativeNormalNEGATIVEMount St. Mary HospitalComment on above:Performed By: #### RANDI OSORIOICRO ####[facility] Frwvcrkvua5615[address] [place], [place] [address]Dr. Yilan ChangHemoglobin Ql (U)TRACE-INTACT AbnormalNEGATIVEFirelands Regional Medical Center South Campus HospitalComment on above:Performed By: #### RANDI OSORIOICRO ####[facility] Ausnplzdhl055[address] [place], [place] [address]Dr. Yilan ChangKetones Ql (U)TRACEAbnormalNEGATIVEFirelands Regional [facility] Campus HospitalComment on above:Performed By: #### JO UMICRO ####[facility] Fxpbjbelgq186[address] [place], [place] [address]Dr. Tadeo Smyth LEUKOCYTESNegativeNormalNEGATIVEThe [facility] CenterComment on above:Performed By: #### KAROL OSORIO ####[facility] [address]cnucxk[address] [place] [address]Dr. Tadeo ChangNitrite Ql (U)NegativeNormalNEGATIVEThe [facility] CenterComment on above:Performed By: #### KAROL OSORIO ####[facility] R[address]jhwhrzsz[address] [place] [address]Dr. Tadeo ChangpH (U)6.5 [pH]Normal5-9The [facility] CenterComment on above: Performed By: #### KAROL OSORIO ####[facility] Stmqvmuktr[address] [place] [address]Dr. Margotnicole HajaSPEC GRAVITY1.015Normal 1.005-<=1.025The [facility] CenterComment on above:Performed By: #### KAROL OSORIO ####[facility] Babriefykb425[address] [place], [place] [address]Dr. Tadeo SmythUA PROTEINNegativeNormalNEGATIVE/ TRACEThe [facility] Comment on above:Performed By: #### KAROL OSORIO ####[facility] Hufdijhzjz[address] [place] [address]Dr. Tadeo SmythUR MICRO IND INDICATEDNormalThe [facility] CenterComment on above:Performed By: #### KAROL OSORIO ####[facility] Ceedqraxlm[address] [place] [address]Dr. Tadeo SmythUrobilinogen Qn (U)0.2 {Benito'U}/dLNormal0.2 - 1.0The [facility] CenterComment on above:Performed By: #### KAROL OSORIO ####[facility] Tbqezneeay[address] [place] [address]Dr. Tadeo SmythURINE MICROSCOPIC ONLYon 93-48-6716BIKUSWVTRSBCIPCRBligfkpsCMVE SEEN The [facility] CenterComment on above:Performed By: #### KAROL OSORIO ####[facility] Dbowamrujb3[address] [place] [address]Dr. Tadeo SmythBacteria identified Cx Nom (U)INDICATEDMercy Health Defiance Hospital Comment on above:Performed By: #### JO UMICRO ####[facility] Koygolrdym[address] [place] [address]Dr. Tadeo ChangCASTNONE SEEN NormalNONE SEENThe [facility] CenterComment on above:Performed By: #### JO UMICRO ####[facility] Lxdrmixief[address] [place] [address]Dr. Tadeo SmythCrystals LM Nom (Urine sed)NONE SEENNormalNONE SEENMount St. Mary HospitalComascension [facility]org[facility] on above:Performed By: #### JO UMICRO ####[facility] Pidrtyzeap[address] [place] [address]Dr. Tadeo ChangEpithelial cells LM Ql (Urine sed)RARENormalNONE SEEN /RAREThe [facility] CenterComment on above:Performed By: #### JO UMICRO ####[facility] Renizpjejo025[address] [place], [place] [address]Dr. Tadeo SmythMUCOUSNONE SEENNormalNONE SEENMount St. Mary HospitalComascension borg[facility] hospital on above: Performed By: #### JO UMICRO ####[facility] Xybuejkqhl623[address] [place], [place] [address]Dr. Tadeo SmythRBCNONE SEENAbnormal0-2The [facility] CenterComment on above:Performed By: #### JO UMICRO ####[facility] Dfhocvrqhp1895[address] [place], [place] [address]Dr. Tadeo SmythWBC2-5AbnormalNONE SEENMount [address]. Mary HospitalComascension borg[facility] hospital on above: Performed By: #### JO UMICRO ####[facility] Dwqmxstolc685[address] [place], [place] [address]Dr. Tadeo SmythXR ABD FLAT UP_PA Kasey 03-28-2022 XR ABD FLAT UP_PA [facility] AUTO DIFFon [id number] # 0.0 103/ulNormal0.0-0.1The [facility] CenterComment on above:Performed By: #### CBC ####[facility] Hcmivrgogf450[address] [place], [place] [address]Dr. Yilan ChangBasophils/100 WBC (Bld)0.5 %Normal0.2-2.0The [facility] CenterComment on above:Performed By: #### CBC ####[facility] Wzdhnelcju245[address] [place], [place] [address]Dr.Yilan ChangEO #0.2 103/ulNormal0.0-0.7The [facility] CenterComment on above:Performed By: #### CBC ####[facility] Xodsjjioou705[address] [place], [place] [address]Dr.Yilan ChangEosinophils/100 WBC (Bld)3.2 %Normal0.9-7.0The [facility] CenterComment on above:Performed By: #### CBC ####[facility] Aovrhxubsl6065[address] [place], [place] [address]Dr.Yilan ChangErythrocyte distribution width (RBC) [Ratio]13.1 %Normal 11.0-15.0The [facility] CenterComascension borgess hospital on above:Performed By: #### CBC ####[facility] Xnqdsufqdg989[address] [place], [place] [address]Dr. Yilan ChangHematocrit (Bld) [Volume fraction]34.8 %Critically low36.0-48.0The [facility] CenterComascension borgess hospital on above:Performed By: #### CBC ####[facility] Rcuculyftm1888[address] [place], [place] [address]Dr.Yilan ChangHemoglobin (Bld) [Mass/Vol]11.3 g/dLCritically low12.0-16.0The [facility] on above:Performed By: #### CBC ####[facility] Tdeuvkvzky283[address] [place], [place] [address]Dr.Yilan ChangIG #0.01 10e3/ulNormal0.00-0.03The [facility] CenterComment on above:Performed By: #### CBC ####[facility] E[address]hdhfhnv[address] [place] [address]Dr.Tadeo SmythIG %0.2 %Normal 0.0-0.5The [facility] CenterComment on above:Performed By: #### CBC ####[facility] Xujbrxtspo33[address] [place] [address]Dr.Tadeo SmythLYMPH #1.6 103/ulNormal1.2-3.8The [facility] CenterComment on above:Performed By: #### CBC ####[facility] Jrnztfrvtc05[address] [place] [address]Dr.Tadeo SmythLymphocytes/100 WBC (Bld)29.1 %Zcxehl19.5-60.0The [facility] CenterComment on above:Performed By: #### CBC ####[facility] Yrgplgvpvo299[address] [place], [place] [address]Dr.Tadeo SmythMANUAL DIFF REQ NONormalThe [facility] CenterComment on above:Performed By: #### CBC ####[facility] Nyqdsasxyv339[address] [place], [place] [address]Dr. Tadeo SmythH (RBC) [Entitic mass]29.1 uwHoysnj48.7-34.0The [facility] Comment on above:Performed By: #### CBC ####[facility] Eapvsqemuf8988[address] [place], [place] [address]Dr.Tadeo SmythHC (RBC) [Mass/Vol]32.5 g/dL Xunazv27.9-35.2The [facility] CenterComment on above:Performed By: #### CBC ####[facility] Vbnwikxien5418[address] [place], [place] [address]Dr. Tadeo SmythV (RBC) [Entitic vol]89.7 mOXtxjvf33.0-99.0The [facility] Comment on above:Performed By: #### CBC ####[facility] Njxmxgjwhv195[address] [place], [place] [address]Dr.Tadeo HajaMONO #0.3 103/ulNormal0.3-0.8 The [facility] HospitalComment on above:Performed By: #### CBC ####[facility] Cmeyvmivvc84[address] [place] [address]Dr.Tadeo Smyth Monocytes/100 WBC (Bld)5.7 %Normal1.7-12.0The [facility] HospitalComment on above: Performed By: #### CBC ####[facility] Afkdjddmkx777[address] [place], [place] [address]Dr.Tadeo SmythNEUT #3.5 103/ulNormal1.4-6.5The [facility] HospitalComment on above:Performed By: #### CBC ####[facility] Olwtmbxhjw725[address] [place], [place] [address]Dr.Tadeo SmythNeutrophils/100 WBC (Bld)61.3 %Hdohks07.0-75.0The [facility] CenterComment on above:Performed By: #### CBC ####[facility] Hivzqhvdza5826[address] [place], [place] [address]Dr.Tadeo SmythPlatelet mean volume (Bld) [Entitic vol]9.1 fLCritically low 9.5-13.5The [facility] CenterComment on above:Performed By: #### CBC ####[facility] Tjqytdxxbh825[address] [place], [place] [address]Dr. Tadeo NfrleIDU322 103/cnXbpyxi560-581Sdk [facility] CenterComment on above: Performed By: #### CBC ####[facility] Fwidvtuqva216[address] [place] [address]Dr.Tadeo SmythRBC3.88 106/ulCritically low4.20-5.40The [facility] CenterComment on above:Performed By: #### CBC ####[facility] Uekgclncxf5730[address] [place], [place] [address]Dr.Tadeo SmythWBC5.6 103/ul Normal4.0-11.0The [facility] CenterComment on above:Performed By: #### CBC ####[facility] Gxzfajllin27[address] [place], [place] [address]Dr. Tadeo ChangCT ABD/PELV W [place] 96-35-5556BP ABD/PELV W CONNormalFirelands Regional Medical Center South Campus HospitalCT ABD/PELVIS WO CONon 63-51-1456LF ABD/PELVIS WO CONNormalMount St. Mary HospitalCovid-19 PCR (CVDTB)on 80-19-7553UABS-CoV-2 (COVID-19) RNA CHEN+probe Ql (Unsp spec)Not detectedNormalNOT DETECTEDMount St. Mary HospitalComment on above: Result Comment: When diagnostic testing is negative, the possibility of a false negative should be considered inthe context of a patient's recent exposures and the presence of clinical signs and symptomsconsistent with SARS-CoV-2.This test is not yet approved or cleared by the [place] FDA. When there are no FDA- approved or cleared tests available, and other criteria are met, FDA can make tests available under an emergency access mechanism called an Emergency Use Authorization (EUA). The EUA for this test is supported by the [place] of Health and Human Service's declaration that circumstances exist to justify the emergency use of in vitro diagnostics for the detection and/or diagnosis of the virus that causes COVID-19. This EUA will remain in effect for the duration of the COVID-19declaration justifying emergency of IVDs, unless it is terminated or revoked by the FDA (after which the test may no longer be used).Performed By: #### CVDTBH ####[facility] Hmbfxslzzi033[address] [place], [place] [address]Dr. Yilan ChangER URINE PROFILEon 24-27-8923Cfvxfpvbu Ql (U)NegativeNormal NEGATIVEMount St. Mary HospitalComment on above:Performed By: #### ERUR, PREGU ####[facility] Zslpufweyi[address] [place] [address]Dr. Yilan ChangClarity (U)CLEARNormalCLEARMount St. Mary HospitalComment on above: Performed By: #### ERUR, PREGU ####[facility] Suyfjlupyj57[address] [place] [address]Dr. Yilan ChangColor (U)LT. YELLOWNormalYELLOWMount St. Mary HospitalComment on above:Performed By: #### ERUR, PREGU ####[facility] Ibqinaoqra[address] [place], [place] [id number]. Yinicole Smyth ERUAHDA micrscopic examination will be performed if indicated.NormalThe [facility] HospitalComment on above:Performed By: #### ERUR, PREGU ####[facility] Fzoggzcwst[address] [place], [place] [id number]. Yilan ChangGlucose Ql (U) NegativeNormalNEGATIVEThe [facility] HospitalComment on above:Performed By: #### ERUR, PREGU ####[facility] Imyocowxte[address] [place], [place] [address]Dr. Yilan ChangHemoglobin Ql (U)SMALLAbnormalNEGATIVEThe [facility] Comment on above:Performed By: #### ERUR, PREGU ####[facility] Jqqgqdecmc036[address] [place], [place] [address]Dr. Yilan ChangKetones Ql (U) TRACEAbnormalNEGATIVEThe [facility] HospitalComment on above:Performed By: #### ERUR, PREGU ####[facility] Dixvwtuwsj786[address] [place], [place] [address]Dr. Yilan ChangLEUKOCYTESNegativeNormalNEGATIVEFirelands Regional Medical Center South Campus HospitalComment on above:Performed By: #### ERUR, PREGU ####[facility] Plfewyszgk88[address] [place], [place] [address]Dr. Yilan ChangNitrite Ql (U)NegativeNormal NEGATIVEMount St. Mary HospitalComment on above:Performed By: #### ERUR, PREGU ####[facility] Nkfprkoiez8[address] [place], [place] [address]Dr. Yilan ChangpH (U)6.0 [pH]Normal5-9[facility] HospitalComment on above: Performed By: #### ERUR, PREGU ####[facility] Upzhchzomf[address] [place], [place] [address]Dr. Yilan ChangSPEC GRAVITY>=1.030Abnormal 1.005-<=1.025The [facility] CenterComment on above:Performed By: #### ERUR, PREGU ####[facility] Ycrxkzjkkh[address] [place] [address]. Yilan ChangUA PROTEINNegativeNormalNEGATIVE/ TRACEThe [facility] Comment on above:Performed By: #### ERUR, PREGU ####[facility] Uxjqffcqeo[address] [place] [address]Dr. Tadeo SmythUR MICRO IND NOT INDICATEDNormalThe [facility] CenterComment on above:Performed By: #### ERUR, PREGU ####[facility] Xsxkgpffxo13[address] [place] [address]Dr. Tadeo SmythUrobilinogen Qn (U)0.2 {Benito'U}/dLNormal0.2 - 1.0The [facility] CenterComment on above:Performed By: #### CHELSEY, PREGU ####[facility] Vlvkweqiuw[address] [place] [address]Dr. Margotnicole Smyth LIPASEon 71-48-4341Uezuon [Catalytic activity/Vol]126.0 U/URnuphn20.0-393.0The [facility] CenterComment on above:Performed By: #### LIPA, CMP ####[facility] Xxjbiicdyv[address] [place], [place] [address]Dr. Margotnicole Smyth URon 67-18-2160QKVLSBNAM, QUALNegativeNormalNEGATIVEThe [facility] CenterComment on above:Performed By: #### CHELSEY, PREGU ####[facility] Vswzvgqfja[address] [place] [address]Dr. Margotnicole HajaPROF 14(COMP METB)on 27-13-4915Euhomkt [Mass/Vol]3.6 g/dLNormal3.4-5.0The [facility] Comment on above:Performed By: #### LIPA, CMP ####[facility] Diupvttpds[address] [place], [place] [address]Dr. Margotnicole Smyth Albumin/Globulin [Mass ratio]1.1 {ratio}NormalThe [facility] CenterComment on above:Performed By: #### LIPA, CMP ####[facility] Lquncpvavi[address] [place], [place] [address]Dr. Tadeo SmythALP [Catalytic activity/Vol]139 U/LCritically czgy46-161Txt [facility] CenterComment on above:Performed By: #### LIPA, CMP ####[facility] [address] [address]Dr. Yilan ChangALT [Catalytic activity/Vol]18 U/MEympkh50-98Nwx [facility] CenterComment on above:Performed By: #### LIPA, CMP ####[facility] Ekfvkmqgih[address] [address]Dr. Yinicole ChangAnion gap [Moles/Vol]10.7 mmol/LNormalThe [facility] CenterComment on above:Performed By: #### LIPA, CMP ####[facility] Ofkwfyzrrl[address] [place], [place] [address]Dr. Yilan ChangAST [Catalytic activity/Vol]11 U/LCritically uhr74-55 The [facility] CenterComment on above:Performed By: #### LIPA, CMP ####[facility] Yndzfubimu[address] [place], [place] [address]Dr. Yilan Smyth Bilirubin [Mass/Vol]0.2 mg/dLNormal0.2-1.0The [facility] CenterComment on above: Performed By: #### LIPA, CMP ####[facility] Hixovvurew[address] [place], [place] [address]Dr. Yilan ChangCalcium [Mass/Vol]9.0 mg/dLNormal 8.5-10.1The [facility] CenterComment on above:Performed By: #### LIPA, CMP ####[facility] Mtudkpbtwo[address] [place], [place] [address]Dr. Yilan ChangChloride [Moles/Vol]106 mmol/PWkvejj25-885Toh [facility] Comment on above:Performed By: #### LIPA, CMP ####[facility] Mqpmycfwoa[address] [place], [place] [address]Dr. Yilan ChangCO2 [Moles/Vol]26.9 mmol/RGoguqg16.0-32.0The [facility] CenterComment on above: Performed By: #### LIPA, CMP ####[facility] Ohoyawsyfn[address] [place], [place] [address]Dr. Yilan ChangCreatinine [Mass/Vol]0.84 mg/dLNormal 0.55-1.02The [facility] CenterComment on above:Performed By: #### LIPA, CMP ####[facility] Ddifryfmhg[address] [place], [place] [address]Dr. Yilan ChangEGFR-AF DJIBOUTIAN>60Normal>=60The [facility] CenterComment on above: Performed By: #### LIPA, CMP ####[facility] Xrqsxusbme[address] [place], [place] [address]Dr. Yilan ChangEGFR-NON AF DJIBOUTIAN>60Normal>=60The [facility] Springfieldment on above:Performed By: #### LIPA, CMP ####[facility] Zmyinmrpzq[address] [place], [place] [address]Dr. Yilan Smyth Globulin (S) [Mass/Vol]3.4 g/dLNormalThe [facility] CenterCom[facility] on above: Performed By: #### LIPA, CMP ####[facility] Dyuifgqxcj155[address] [place], [place] [address]Dr. Yilan ChangGlucose [Mass/Vol]96 mg/gBIqbapi49-533 The [facility] CenterCom[facility] on above:Performed By: #### LIPA, CMP ####[facility] Fgkopdqoxh[address] [place], [place] [address]Dr. Yilan Smyth Potassium [Moles/Vol]3.6 mmol/LNormal3.5-5.1The [facility] CenterCom[facility] on above:Performed By: #### LIPA, CMP ####[facility] Ccoolmsuac57[address] [place], [place] [address]Dr. Yilan ChangProtein [Mass/Vol]7.0 g/dLNormal 6.4-8.2The [facility] CenterComment on above:Performed By: #### LIPA, CMP ####[facility] Ssyvpusyuh[address] [place], [place] [address]Dr. Yilan ChangSodium [Moles/Vol]140 mmol/XRxuqwv661-028Owm [facility] CenterComment on above:Performed By: #### LIPA, CMP ####[facility] Decptqdeny[address] [place], [place] [address]Dr. Tadeo ChangUrea nitrogen [Mass/Vol]23.0 mg/dLCritically high7.0-18.0The [facility] CenterComment on above:Performed By: #### LIPAlexandria, CMP ####[facility] Msvisdmkkh27[address] [place], [place] [address]Dr. Margotlan ChangUrea nitrogen/Creatinine [Mass ratio]27.4 mg/mgNormal The [facility] CenterComment on above:Performed By: #### LIPAlexandria, CMP ####[facility] Lfuthzwcry17[address] [place], [place] [address]Dr. Margotnicole ChangGROUP A STREP CULTUREon 02-06-2022. pyogenes Ag Ql (Unsp spec)NormalThe [facility] CenterComasc[facility] on above:Performed By: #### GRASTCX, SSCRN ####[facility] Jolbmwoyxn[address] [place], [place] [address]Dr. Tadeo ChangAMYLASEon 76-99-1493Tbnbsqy [Catalytic activity/Vol]37 U/OFkiick06-705Siz [facility] Springfieldment on above:Performed By: #### CMP, KEITH HALLMAN ####[facility] Lqwtthfrzw105[address] [place], [place] [address]Dr. Margotnicole HajaCBC AUTO DIFF on 06-61-4823VTDO #0.0 103/ulNormal0.0-0.1The [facility] CenterCom[facility] on above: Performed By: #### CBC ####[facility] Pjpzvkbezb[address] [place], [place] [address]Dr.Margotnicole HajaBasophils/100 WBC (Bld)0.2 %Normal 0.2-2.0The [facility] CenterComment on above:Performed By: #### CBC ####[facility] Ducyqigvsa[address] [place], [place] [address]Dr.Margotlan ChangEO # 0.0 103/ulNormal0.0-0.7The [facility] Springfieldment on above:Performed By: #### CBC ####[facility] [address] [address]Dr. Tadeo ChangEosinophils/100 WBC (Bld)0.2 %Critically low0.9-7.0The [facility] CenterComment on above:Performed By: #### CBC ####[facility] Ewvdrqmwiu[address] [place], [place] [address]Dr.Tadeo ChangErythrocyte distribution width (RBC) [Ratio]13.4 %Utgfwa93.0-15.0The [facility] Comment on above:Performed By: #### CBC ####[facility] Qqrhstsavn34[address] [place], [place] [address]Dr.Margotlan ChangHematocrit (Bld) [Volume fraction]36.8 %Tocdff37.0-48.0The [facility] CenterComment on above:Performed By: #### CBC ####[facility] Yggsowtvho[address] [place], [place] [address]Dr.Tadeo ChangHemoglobin (Bld) [Mass/Vol]11.6 g/dLCritically low12.0-16.0 The [facility] CenterComment on above:Performed By: #### CBC ####[facility] Npxxutajjj[address] [place], [place] [address]Dr.Yilan ChangIG # 0.08 10e3/ulCritically high0.00-0.03The [facility] CenterComment on above: Performed By: #### CBC ####[facility] Zlsuojpkqa9[address] [place], [place] [address]Dr.Tadeo ChangIG %0.6 %Critically high0.0-0.5The [facility] CenterComment on above:Performed By: #### CBC ####[facility] Lfofoytlfo70[address] [place], [place] [address]Dr.Yilan ChangLYMPH #0.9 103/ulCritically low1.2-3.8The [facility] CenterComment on above:Performed By: #### CBC ####[facility] Rvztkzlycz[address] [place], [place] [address]Dr.Yilan ChangLymphocytes/100 WBC (Bld)6.9 %Critically low20.5-60.0The [facility] CenterComment on above:Performed By: #### CBC ####[facility] [address] [address]Dr.Tadeo SmtyhMANUAL DIFF REQ NONormalThe [facility] CenterComment on above:Performed By: #### CBC ####[facility] [address]esle[address] [address]Dr. Margotnicole SmythH (RBC) [Entitic mass]28.9 eqQkmvtk16.7-34.0The [facility] Comment on above:Performed By: #### CBC ####[facility] Tagyraeuay[address] [address]Dr.Margotnicole SmythHC (RBC) [Mass/Vol]31.5 g/dL Ftuacn84.9-35.2The [facility] CenterComment on above:Performed By: #### CBC ####[facility] Xaoqsapnkl[address] [place], [place] [address]Dr. Tadeo SmythV (RBC) [Entitic vol]91.8 qFKynsmn06.0-99.0The [facility] Comment on above:Performed By: #### CBC ####[facility] Spitzhuwha[address] [place], [place] [address]Dr.Tadeo AnkitO #0.9 103/ulCritically high0.3-0.8The [facility] CenterComment on above:Performed By: #### CBC ####[facility] Gyszgmpmuk[address] [place], [place] [address]Dr. Margotnicole SmythMonocytes/100 WBC (Bld)6.9 %Normal1.7-12.0The [facility] Comment on above:Performed By: #### CBC ####[facility] Npcojtqzyi7[address] [place], [place] [address]DrNeoMargotnicole SmythNEUT #11.6 103/ulCritically high1.4-6.5The [facility] CenterComment on above:Performed By: #### CBC ####[facility] Nzaaybonaj8[address] [place], [place] [address]Dr. Margotnicole SmythNeutrophils/100 WBC (Bld)85.2 %Critically high43.0-75.0The [facility] CenterComment on above:Performed By: #### CBC ####[facility] [address] [address]Dr.Tadeo SmythPlatelet mean volume (Bld) [Entitic vol]8.9 fLCritically low9.5-13.5The [facility] Comment on above:Performed By: #### CBC ####[facility] [address] [address]Dr.Tadeo BxlgpHLM376 103/zmAfwvbo214-851Fdp [facility] CenterComment on above:Performed By: #### CBC ####[facility] [address] [address]Dr.Tadeo SmythRBC4.01 106/ul Critically low4.20-5.40The [facility] CenterComment on above:Performed By: #### CBC ####[facility] Jjoblvjpcy9[address] [place], [place] [address]Dr. Tadeo SmythWBC13.7 103/ulCritically high4.0-11.0The [facility] CenterComment on above:Performed By: #### CBC ####[facility] Lsokcenhdz[address] [place], [place] [address]Dr.Tadeo SmythCovid-19 PCR ([facility]on 02-02-2022 SARS-CoV-2 (COVID-19) RNA CHEN+probe Ql (Unsp spec)Not detectedNormalNOT DETECTED The [facility] CenterComment on above:Result Comment: When diagnostic testing is negative, the possibility of a false negative should be considered inthe context of a patient's recent exposures and the presence of clinical signs and sympt omsconsistent with SARS-CoV-2.This test is not yet approved or cleared by the [place] FDA. When there are no FDA-approved or cleared tests available, and other criteria are met, FDA can make tests available under an emergency access mechanism called an Emergency Use Authorization (EUA). The EUA for this test is supported by the [place] of Health and Human Service's declaration that circumstances exist to justify the emergency use of in vitro diagnostics for the detection and/or diagnosis of the virus that causes COVID-19. This EUA will remain in effect for the duration of the COVID-19declaration justifying emergency of IVDs, unless it is terminated or revoked by the FDA (after which the test may no longer be used).Performed By: #### CVDTBH ####[facility] [address] [address]Dr. Tadeo SmythLIPASEon 75-06-9001Ppdaux [Catalytic activity/Vol]33.0 U/LCritically low73.0-393.0The [facility] CenterComment on above:Performed By: #### CMP, VIJI, LIPA ####[facility] [address]usew[address] [address]Dr. Tadeo SmythMONO on 08-13-2954Fotrmcmlv (Bld) [#/Vol]NegativeNormalNEGATIVEThe [facility] Comment on above:Performed By: #### MONO ####[facility] Jfrznoxiea[address] [place], [place] [address]Dr. Tadeo SmythPROF 14(COMP METB)on 06-84-8583Xcwervt [Mass/Vol]3.1 g/dLCritically low3.4-5.0The [facility] Comment on above:Performed By: #### CMP, VIJI, LIPA ####[facility] Hntxhiudwj8[address] [place], [place] [address]Dr. Tadeo Smyth Albumin/Globulin [Mass ratio]0.9 {ratio}NormalThe [facility] CenterComment on above:Performed By: #### CMP, VIJI, LIPA ####[facility] [address] [address]Dr. Tadeo SmythALP [Catalytic activity/Vol] 131 U/LCritically ptpi65-183Rnv [facility] CenterComment on above:Performed By: #### CMP, VIJI, LIPA ####[facility] [address] [address]Dr. Tadeo SmythALT [Catalytic activity/Vol]25 U/L Fofamg41-52Pcf [facility] CenterComment on above:Performed By: #### CMP, VIJI, LIPA ####[facility] [address] [address]Dr. Yilan ChangAnion gap [Moles/Vol]10.0 mmol/LNormalThe [facility] Comment on above:Performed By: #### CMP, VIJI, LIPA ####[facility] [address] [address]Dr. Yilan ChangAST [Catalytic activity/Vol]19 U/HOuzcir73-97Oat [facility] CenterComment on above:Performed By: #### CMP, VIJI, LIPA ####[facility] [address] [address]Dr. Yilan ChangBilirubin [Mass/Vol]0.6 mg/dLNormal 0.2-1.0The [facility] CenterComment on above:Performed By: #### CMP, VIJI, LIPA ####[facility] Zpisrfrmjj[address] [place], [place] [address]Dr. Yilan ChangCalcium [Mass/Vol]8.2 mg/dLCritically low8.5-10.1The [facility] CenterComment on above:Performed By: #### CMP, VIJI, LIPA ####[facility] Cyxnaitflv7[address] [place], [place] [address]Dr. Yilan ChangChloride [Moles/Vol]106 mmol/TBocbjy64-423Vvp [facility] CenterComment on above:Performed By: #### CMP, VIJI, LIPA ####[facility] [address]vk[address] [address]Dr. Yilan ChangCO2 [Moles/Vol]25.5 mmol/LNormal 21.0-32.0The [facility] CenterComment on above:Performed By: #### CMP, VIJI, LIPA ####[facility] Utffnviurs[address] [place], [place] [address]Dr. Yilan ChangCreatinine [Mass/Vol]0.78 mg/dLNormal0.55-1.02The [facility] Comment on above:Performed By: #### CMP, VIJI, LIPA ####[facility] [address] StreetB[place], [place] [address]Va. Yilan ChangEGFR-AF DJIBOUTIAN>60Normal>=60The [facility] CenterComment on above:Performed By: #### CMP, VIJI, LIPA ####[facility] [address]who[address] [address]Dr. Yilan ChangEGFR-NON AF DJIBOUTIAN>60Normal>=60The [facility] Comment on above:Performed By: #### CMP, VIJI, LIPA ####[facility] [address]bxkbzr[address] [address]Dr. Yilan ChangGlobulin (S) [Mass/Vol]3.6 g/dLNormalThe [facility] CenterComment on above:Performed By: #### CMP VIJI, LIPA ####[facility] Rmpfdxfryf[address] [place], [place] [address]Dr. Yilan ChangGlucose [Mass/Vol]110 mg/dLCritically fwpb04-864Ged [facility] CenterComment on above:Performed By: #### CMP VIJI, LIPA ####[facility] [address]jt[address] [address]Dr. Yilan Smyth Potassium [Moles/Vol]3.5 mmol/LNormal3.5-5.1The [facility] CenterComment on above:Performed By: #### CMP, VIJI, LIPA ####[facility] [address]owv[address] [address]Dr. Yilan ChangProtein [Mass/Vol]6.7 g/dL Normal6.4-8.2The [facility] CenterComment on above:Performed By: #### CMP, VIJI, LIPA ####[facility] [address]qf[address] [address]Dr. Yilan ChangSodium [Moles/Vol]138 mmol/XDycrrn126-481Kwx [facility] CenterComment on above:Performed By: #### CMP, VIJI, LIPA ####[facility] [address] [address]Dr. Yilan ChangUrea nitrogen [Mass/Vol]11.0 mg/dLNormal7.0-18.0The [facility] CenterComment on above: Performed By: #### CMP, VIJI, LIPA ####[facility] [address] [place], [place] [address]Kl. Tadeo SmythUrea nitrogen/Creatinine [Mass ratio] 14.1 mg/mgNormalThe [facility] CenterComment on above:Performed By: #### CMP, VIJI, LIPA ####[facility] [address] [address]Dr. Tadeo ChangSTREPT SCREENon 03-88-1728RVQLC SCREEN ANegativeNormal NEGATIVEThe [facility] CenterComment on above:Performed By: #### GRASTCX, SSCRN ####[facility] [address] [address]Dr. Tadeo SmythBASIC METABOLIC PANELon 58-14-9652Xujjylw [Mass/Vol]8.4 mg/dLLow 8.6-10.3The [facility] HospitalComment on above:Order Comment: No: Do not add to previous drawPerformed By: #### 85241, 19234 #### [facility] [address] [place] [address], USAChloride [Moles/Vol]108 mmol/VMpel29-563Nyl [facility] HospitalComment on above:Order Comment: No: Do not add to previous drawPerformed By: #### 52757, 63374 #### [facility] [address] [place] [address], USACO2 [Moles/Vol]26 mmol/NMeuybl63-48Fol [facility] HospitalComment on above:Order Comment: No: Do not add to previous draw Performed By: #### 83186, 71064 #### [facility] [address] [place] [address], USACreatinine [Mass/Vol]0.79 mg/dLNormal0.60-1.20The [facility] HospitalComment on above:Order Comment: No: Do not add to previous drawPerformed By: #### 22649, 46057 #### [facility] [address] [place] [address], USAGFR/1.73 sq M predicted among blacks MDRD (S/P/Bld) [Vol rate/Area]mL/min/{1.73_m2}Normal>60The [facility] Comment on above:Order Comment: No: Do not add to previous drawPerformed By: #### 57069, 24134 #### [facility] [address] [place] [address], USAGFR/1.73 sq M predicted among non-blacks MDRD (S/P/Bld) [Vol rate/Area]mL/min/{1.73_m2}Normal>60The [facility] Comment on above:Order Comment: No: Do not add to previous drawPerformed By: #### 24451, 40118 #### [facility] [address] [place] [address], USAGlucose [Mass/Vol]98 mg/cAAtslbo77-285Src [facility] HospitalComment on above:Order Comment: No: Do not add to previous drawPerformed By: #### 81353, 45252 #### [facility] [address] [place] [address], USAPotassium [Moles/Vol]3.5 mmol/LNormal3.5-5.1The [facility] HospitalComment on above:Order Comment: No: Do not add to previous drawPerformed By: #### 06517, 31011 #### [facility] [address] [place] [address], USASodium [Moles/Vol]139 mmol/XZpnxai133-275Ydn [facility] HospitalComment on above:Order Comment: No: Do not add to previous drawPerformed By: #### 53660, 70123 #### [facility] [address] [place] [address], USAUrea nitrogen [Mass/Vol]11 mg/dLNormal7-25The [facility] HospitalComment on above:Order Comment: No: Do not add to previous drawPerformed By: #### 21348, 36873 #### [facility] [address] [place] [address], USABLOOD STOOL GUAIACon 63-55-4144SZI STOOL GUAIACNegative NormalNEGATIVEThe [facility] Charles HospitalComment on above:Order Comment: No: Do not add to previous drawPerformed By: #### 50133, 38443 #### [facility] [address] [address], USAMAGNESIUM BLOODon 01-78-8495Abhirtxfp [Mass/Vol]2.0 mg/dL Normal1.9-2.7The [facility] HospitalComment on above:Order Comment: No: Do not add to previous drawPerformed By: #### 08258, 87041 #### [facility] [address] [place] [address], [facility]*URINE CULTUREon [id number] identified Cx Nom (U) Clinical Report: (D) Specimen/Source: URINE/MIDSTREAM Collected: 08/15/2019 20:40 Status: Final Last Updated: 08/17/2019 08:05 ISO (Final) Escherichia coli >100,000 Cfu/Ml ISOLATE: Escherichia coli RHONDA (mcg/ml) AMP./SULBAC (AMS) 16/8 Intermediate AMPICILLIN (AM) >16 Resistant AZTREONAM (AZM) <=1 Susceptible CEFAZOLIN (CZ) 2 Susceptible CEFTRIAXONE (JEWEL GRINDER) <=0.5 Susceptible CIPROFLOXACIN (CIP) >2 Resistant ESBL (-/+) (ESBL) Negative GENTAMICIN (GM) <=1 Susceptible NITROFURANTOIN (FT) <=16 Susceptible PIP/TAZO (TZP) 4/4 Susceptible TOBRAMYCIN (TOB) 1 Susceptible TRIMETH/SULFA (SXT) >2/38 ResistantFulton County Health Center Comment on above:Performed By: #### 22423, 45709 #### [facility] [address] [place] [address], USABASIC METABOLIC PANELon 81-11-2124Bvuwted [Mass/Vol]8.8 mg/dLNormal8.6-10.3The [facility] HospitalComment on above:Order Comment: No: Do not add to previous drawPerformed By: #### 44607, 85105, 93280 #### [facility] [address] [place] [address], USAChloride [Moles/Vol]107 mmol/LVqwekd33-742Jap [facility] HospitalComment on above:Order Comment: No: Do not add to previous drawPerformed By: #### 80978, 56532, 36757 #### [facility] [address] [place] [address], USACO2 [Moles/Vol]27 mmol/BBrgqgs67-38Qet [facility] HospitalComment on above:Order Comment: No: Do not add to previous draw Performed By: #### 27756, 91909, 86622 #### [facility] [address] [place] [address], USACreatinine [Mass/Vol]0.99 mg/dLNormal0.60-1.20The [facility] HospitalComment on above:Order Comment: No: Do not add to previous drawPerformed By: #### 11088, 23679, 71585 #### [facility] [address] [place] [address], USAGFR/1.73 sq M predicted among blacks MDRD (S/P/Bld) [Vol rate/Area]mL/min/{1.73_m2}Normal>60The [facility] Comment on above:Order Comment: No: Do not add to previous drawPerformed By: #### 42905, 02999, 51552 #### [facility] [address] [place] [address], USAGFR/1.73 sq M predicted among non-blacks MDRD (S/P/Bld) [Vol rate/Area]59 ml/min/1.73sq mAbnormal>60The [facility] HospitalComment on above:Order Comment: No: Do not add to previous drawPerformed By: #### 63699, 42854, 90628 #### [facility] [address] [place] [address], USAGlucose [Mass/Vol]100 mg/rBApizbo33-440Grq [facility] HospitalComment on above:Order Comment: No: Do not add to previous drawPerformed By: #### 59052, 53302, 44751 #### [facility] [address] [place] [address], USAPotassium [Moles/Vol]3.6 mmol/LNormal3.5-5.1The [facility] HospitalComment on above:Order Comment: No: Do not add to previous drawPerformed By: #### 70137, 18248, 01441 #### [facility] [address] [place] [address], USASodium [Moles/Vol]140 mmol/OGqlftz662-560Qer [facility] HospitalComment on above:Order Comment: No: Do not add to previous drawPerformed By: #### 39868, 04465, 66300 #### [facility] [address] [place] [address], USAUrea nitrogen [Mass/Vol]9 mg/dLNormal7-25The [facility] HospitalComment on above:Order Comment: No: Do not add to previous drawPerformed By: #### 70373, 94967, 59257 #### [facility] [address] [place] [address], USALACTATE BLOODon 01-63-4942Ymfozhf [Moles/Vol]0.8 mmol/L Normal0.5-2.2The [facility] HospitalComment on above:Order Comment: Yes: Add to Previous draw if ablePerformed By: #### 46786 #### [facility] [address] [place] [address], USALMWH HEPARIN ASSAYon [id number] MOLECULAR WEIGHT HEPARIN 0.32 IU/mLLow0.60-1.20The [facility] HospitalComment on above: Order Comment: (draw 4 hours [...] 10AM SO PT NEEDS TO BE DRAWNAT 2PMResult Comment: The maximum anti-Factor Xa and anti-thrombin (anti-Factor IIa) activities occur 3 to 5 hours after SC injection of either enoxaparin (Lovenox) or dalteparin (Fragmin). Optimal time for testing is 4 hours after a dose is injected. Rivaroxaban and Apixaban will interfere with the anti Xa assay used to monitor UFH and LMWH.Performed By: #### 99284, 01852 #### [facility] [address] [place] [address], [facility] HOSPITALMAGNESIUM BLOODon 81-09-7965Lvftyoovs [Mass/Vol]1.7 mg/dL Low1.9-2.7The [facility] Charles HospitalComment on above:Order Comment: No: Do not add to previous drawPerformed By: #### 48725, 64221, 79278 #### [facility] [address] [place] [address], USAPHOSPHORUS BLOODon 31-09-0826Evfaagoqj [Mass/Vol]4.1 mg/dL Normal2.5-5.0The [facility] Charles HospitalComment on above:Order Comment: No: Do not add to previous drawPerformed By: #### 01312, 14350, 23413 #### [facility] [address] [place] [address], USAUGI WITH SMALL BOWELon 19-61-6321USN WITH SMALL BOWEL [facility] Department of Radiology [address] [place], [place] [id number] Patient Name: CONSTANTINO CARDOSO : 1970 Sex: F Age: Race: White Pt. Location: [id number] Patient Status: O Ordered Date: 08/15/2019 10:45:00 [...] ischemia. Electronically signed by:Orestes Condon. Transcribed by: [id number], User Resident: Electronically Signed by: ORESTES CONDON @ 08/15/2019 04:13 PMNormalAdams County Regional Medical CenterComment on above:Order Comment: R/O ObstructionURINALYSIS REFLEXon 20-13-3718Lhqszekljd (U)SL CLOUDYAbnormalCLEARThe [facility] St. Charles HospitalComment on above:Order Comment: No: Do not add to previous drawCriteria for reflexing a culture was met. Urine Culture and sensitivitywill be performed.Performed By: #### 95490, 55222 #### [facility] [address] [place] [address], USABilirubin [Mass/Vol]NegativeNormalNEGATIVEAdams County Regional Medical CenterComment on above:Order Comment: No: Do not add to previous drawCriteria for reflexing a culture was met. Urine Culture and sensitivitywill be performed.Performed By: #### 39583, 70378 #### [facility] [address] [place] [address], USABLOODSMALLAbnormalNEGATIVEThe [facility] St. Charles HospitalComment on above:Order Comment: No: Do not add to previous drawCriteria for reflexing a culture was met. Urine Culture and sensitivitywill be performed. Performed By: #### 90030, 59122 #### [facility] [address] [place] [address], USAColor (U)YELLOWNormalYELLOWThe [facility] St. Charles HospitalComment on above:Order Comment: No: Do not add to previous drawCriteria for reflexing a culture was met. Urine Culture and sensitivitywill be performed. Performed By: #### 81651, 64397 #### [facility] [address] [place] [address], USAEPISOCCNormalFEW,OCC,NONE SEENThe [facility] St. Charles HospitalComment on above:Order Comment: No: Do not add to previous drawCriteria for reflexing a culture was met. Urine Culture and sensitivitywill be performed.Performed By: #### 20079, 57906 #### [facility] [address] [place] [address], USAGlucose [Mass/Vol]NegativeNormalNEGATIVEThe [facility] St[facility] Charles HospitalComment on above:Order Comment: No: Do not add to previous drawCriteria for reflexing a culture was met. Urine Culture and sensitivitywill be performed.Performed By: #### 40787, 20635 #### [facility] [address] [place] [address], USAHYALINE CASTS6-10AbnormalNONE SEENThe [facility] St[facility] Charles HospitalComment on above:Order Comment: No: Do not add to previous drawCriteria for reflexing a culture was met. Urine Culture and sensitivitywill be performed.Performed By: #### 61824, 91860 #### [facility] [address] [place] [address], USAKETONENegativeNormalNEGATIVEThe [facility] Charles HospitalComment on above:Order Comment: No: Do not add to previous drawCriteria for reflexing a culture was met. Urine Culture and sensitivitywill be performed.Performed By: #### 90935, 88560 #### [facility] [address] [place] [address], USALEUK ESTERMODERATEAbnormalNEGATIVEThe [facility] St[facility] Charles HospitalComment on above:Order Comment: No: Do not add to previous drawCriteria for reflexing a culture was met. Urine Culture and sensitivitywill be performed.Performed By: #### 48411, 46203 #### [facility] [address] [place] [address], USAMUCUS THREADSFEWAbnormalNONE SEENAdams County Regional Medical CenterComment on above:Order Comment: No: Do not add to previous drawCriteria for reflexing a culture was met. Urine Culture and sensitivitywill be performed.Performed By: #### 13557, 33076 #### [facility] [address] [place] [address], USANitrite Ql (U)NegativeNormalNEGATIVEThe [facility] St[facility] Charles HospitalComment on above:Order Comment: No: Do not add to previous drawCriteria for reflexing a culture was met. Urine Culture and sensitivitywill be performed.Performed By: #### 81376, 37511 #### [facility] [address] [place] [address], USApH (Bld)5.1Nwrcnl4.0-8.0The [facility] Charles HospitalComment on above:Order Comment: No: Do not add to previous drawCriteria for reflexing a culture was met. Urine Culture and sensitivitywill be performed. Performed By: #### 15529, 80035 #### [facility] [address] [place] [address], USAProtein (U) [Mass/Vol]NegativeNormalNEGATIVEThe [facility] Charles HospitalComment on above:Order Comment: No: Do not add to previous drawCriteria for reflexing a culture was met. Urine Culture and sensitivitywill be performed.Performed By: #### 21335, 05718 #### [facility] [address] [place] [address], USARBC (U) [#/Vol]6-10AbnormalNONE SEENThe [facility] Charles HospitalComment on above:Order Comment: No: Do not add to previous drawCriteria for reflexing a culture was met. Urine Culture and sensitivitywill be performed.Performed By: #### 97474, 57879 #### [facility] [address] [place] [address], USASPEC GRAV1.826Woxv0.015-1.020The [facility] Charles HospitalComment on above:Order Comment: No: Do not add to previous drawCriteria for reflexing a culture was met. Urine Culture and sensitivitywill be performed.Performed By: #### 02301, 63298 #### [facility] [address] [place] [address], USAWBC BW58-336PxcgdoiaKTYH SEENThe [facility] St[facility] Charles HospitalComment on above:Order Comment: No: Do not add to previous drawCriteria for reflexing a culture was met. Urine Culture and sensitivitywill be performed.Performed By: #### 11628, 16532 #### [facility] [address] [place] [address], [facility]OSPITALCBC COMPLETE BLOOD COUNTon 31-04-7869Zkbwkockdcc distribution width (RBC) [Ratio]12.7 %Hcrebr28.5-15.0The [facility] Charles HospitalComment on above:Order Comment: No: Do not add to previous draw Performed By: #### 55492 #### [facility] [address] [place] [address], USAHematocrit (Bld) [Volume fraction]31.2 %Low36.0-45.0The [facility] Charles HospitalComment on above:Order Comment: No: Do not add to previous drawPerformed By: #### 27959 #### [facility] [address] [place] [address], [facility]AL HOSPITALHemoglobin (Bld) [Mass/Vol]9.8 g/dLLow12.0-15.0The [facility] HospitalComment on above:Order Comment: No: Do not add to previous drawPerformed By: #### 88071 #### [facility] [address] [place] [address], [facility] HOSPITALMCH (RBC) [Entitic mass]29.1 voSnnavv36.0-33.0The [facility] HospitalComment on above:Order Comment: No: Do not add to previous drawPerformed By: #### 17432 #### [facility] [address] [place] [address], [facility] HOSPITALMCHC (RBC) [Mass/Vol]31.4 g/dLLow32.0-35.0The [facility] HospitalComment on above:Order Comment: No: Do not add to previous drawPerformed By: #### 53508 #### [facility] [address] [place] [address], USAMCV (RBC) [Entitic vol]92.6 fEDtmxbt02.0-98.0The [facility] Charles HospitalComment on above:Order Comment: No: Do not add to previous drawPerformed By: #### 48440 #### [facility] [address] [place] [address], USANucleated RBC/100 WBC (Bld) [Ratio]0 %Normal0-0The [facility] HospitalComment on above:Order Comment: No: Do not add to previous drawPerformed By: #### 23566 #### [facility] [address] [place] [address], USAPLAT BDZ693 10*3/zYWaurdo919-373Dyf [facility] HospitalComment on above:Order Comment: No: Do not add to previous draw Performed By: #### 09220 #### [facility] [address] [place] [address], USARBC (Bld) [#/Vol]3.37 10*6/uLLow3.80-5.00The [facility] HospitalComment on above:Order Comment: No: Do not add to previous drawPerformed By: #### 97931 #### [facility] [address] [place] [address], USAWBC (Bld) [#/Vol]6.04 10*3/uLNormal4.00-10.60The [facility] HospitalComment on above:Order Comment: No: Do not add to previous drawPerformed By: #### 93586 #### [facility] [address] [place] [address], USAPROTHROMBIN TIMEon 68-48-8560QYS Coag (PPP) [Relative time] 1.09 {INR}Normal0.91-1.16The [facility] Charles HospitalComment on above:Order Comment: No: Do not add to previous drawResult Comment: ACCCP RECOMMENDED INR FOR WARFARIN THERAPY ------- CONDITION INR PROPHYLAXIS OF VENOUS THROMBOSIS 2-3 (HIGH-RISK SURGERY) TREATMENT OF VENOUS THROMBOSIS 2-3 TREATMENT OF PULMONARY EMBOLISM 2-3 PREVENTION OF SYSTEMIC EMBOLISM: 2-3 ACUTE MYOCARDIAL INFARCTION TISSUE HEART VALVES VALVULAR HEART DISEASE ATRIAL FIBRILLATION RECURRENT SYSTEMIC EMBOLISM MECHANICAL HEART VALVE 2.5-3.5 FROM: ORAL ANTICOAGULANTS. MECHANISM OF ACTION, CLINICAL EFFECTIVENESS, AND OPTIMAL THERAPEUTIC RANGE. CHEST 1995;108:231S-246S.Performed By: #### 10004 #### [address] [place] [address], [facility] HOSPITALPT Coag (PPP) [Time]14.1 hHkwoom76.3-14.8The [facility] Charles HospitalComment on above:Order Comment: No: Do not add to previous drawResult Comment: ALL RESULTS MUST BE INTERPRETED WITH RESPECT TO BLOOD DRAWING ARTIFACT OR DILUTION ERROR OF ANTICOAGULANT AT THE TIME OF SAMPLING.Performed By: #### 45969 #### [address] [place] [address], USAUS LIVER [id number] [facility] Department of Radiology [address] [place] [id number] Patient Name: CONSTANTINO CARDOSO : 1970 Sex: F Age: Race: White Pt. Location: [id number] Patient Status: O Ordered Date: 08/13/2019 8:30:00 [...] cholecystectomy. Electronically signed by:Orestes Condon. Transcribed by: [id number], User Resident: Electronically Signed by: ORESTES CONDON @ 08/14/2019 02:[address] [facility] HospitalComment on above:Order Comment: R/O Stones BASIC METABOLIC PANELon 73-97-2390Jdempis [Mass/Vol]9.4 mg/dLNormal8.6-10.3The [facility] HospitalComment on above:Order Comment: No: Do not add to previous drawPerformed By: #### 98314, 11691 #### [facility] [address] [place] [address], USAChloride [Moles/Vol]105 mmol/ZDwyksx03-600Xjq [facility] HospitalComment on above:Order Comment: No: Do not add to previous drawPerformed By: #### 80435, 27873 #### [facility] [address] [place] [address], USACO2 [Moles/Vol]26 mmol/SMntavj15-55Hoc [facility] HospitalComment on above:Order Comment: No: Do not add to previous draw Performed By: #### 10033, 64510 #### [facility] [address] [place] [address], USACreatinine [Mass/Vol]1.03 mg/dLNormal0.60-1.20The [facility] HospitalComment on above:Order Comment: No: Do not add to previous drawPerformed By: #### 03083, 57673 #### [facility] [address] [place] [address], USAGFR/1.73 sq M predicted among blacks MDRD (S/P/Bld) [Vol rate/Area]mL/min/{1.73_m2}Normal>60The [facility] Comment on above:Order Comment: No: Do not add to previous drawPerformed By: #### 67087, 01125 #### [facility] [address] [place] [address], USAGFR/1.73 sq M predicted among non-blacks MDRD (S/P/Bld) [Vol rate/Area]57 ml/min/1.73sq mAbnormal>60The [facility] HospitalComment on above:Order Comment: No: Do not add to previous drawPerformed By: #### 85124, 31164 #### [facility] [address] [place] [address], USAGlucose [Mass/Vol]96 mg/lMBaalcn59-369Chj [facility] HospitalComment on above:Order Comment: No: Do not add to previous drawPerformed By: #### 86146, 51972 #### [facility] [address] [place] [id number], USAPotassium [Moles/Vol]4.1 mmol/LNormal3.5-5.1The [facility] HospitalComment on above:Order Comment: No: Do not add to previous drawPerformed By: #### 18735, 67153 #### [facility] [address] [place] [address], USASodium [Moles/Vol]138 mmol/LRkbkzn421-360Pgw [facility] HospitalComment on above:Order Comment: No: Do not add to previous drawPerformed By: #### 03473, 45643 #### [facility] [address] [place] [place] [address], USAUrea nitrogen [Mass/Vol]16 mg/dLNormal7-25The [facility] HospitalComment on above:Order Comment: No: Do not add to previous drawPerformed By: #### 56941, 56671 #### [facility] [address]. [place] [id number], [facility]OSPITALCBC W/DIFFon 11-46-3710AOF BASOPHILS0.0 10*3/uLNormal 0.0-0.2The [facility] HospitalComment on above:Order Comment: No: Do not add to previous drawPerformed By: #### 95261 #### [facility] [address] [place] [id number], [facility] HOSPITALABS IMM GRANS0.0 10*3/uLNormal0.0-0.2The [facility] HospitalComment on above:Order Comment: No: Do not add to previous drawPerformed By: #### 58579 #### [facility] [address] [place] [address], [facility] HOSPITALABS NEUTROPHILS4.0 10*3/uLNormal1.6-7.6The [facility] HospitalComment on above:Order Comment: No: Do not add to previous drawPerformed By: #### 56322 #### [facility] [address] [place] [address], USABasophils/100 WBC (Bld)0.5 %Normal0.0-1.0The [facility] HospitalComment on above:Order Comment: No: Do not add to previous drawPerformed By: #### 08572 #### [facility] [address] [place] [address], USAEosinophils (Bld) [#/Vol]0.2 10*3/uLNormal0.0-0.5The [facility] HospitalComment on above:Order Comment: No: Do not add to previous drawPerformed By: #### 26074 #### [facility] [address] [place] [place] [address], USAEosinophils/100 WBC (Bld)3.3 %Normal0.0-6.0The [facility] HospitalComment on above:Order Comment: No: Do not add to previous drawPerformed By: #### 13647 #### [facility] [address] [place] [address], USAErythrocyte distribution width (RBC) [Ratio]12.7 %Normal 11.5-15.0The [facility] HospitalComment on above:Order Comment: No: Do not add to previous drawPerformed By: #### 94092 #### [facility] [address] [place] [address], USAHematocrit (Bld) [Volume fraction]33.4 %Low36.0-45.0The [facility] HospitalComment on above:Order Comment: No: Do not add to previous drawPerformed By: #### 32709 #### [facility] [address] [place] [address], USAHemoglobin (Bld) [Mass/Vol]10.5 g/dLLow12.0-15.0The [facility] HospitalComment on above:Order Comment: No: Do not add to previous drawPerformed By: #### 37962 #### [facility] [address] [place] [address], USAIMMATURE GRANS0.2 %Normal0.0-1.0The [facility] HospitalComment on above:Order Comment: No: Do not add to previous draw Performed By: #### 63837 #### [facility] [address] [place] [address], USALymphocytes (Bld) [#/Vol]1.8 10*3/uLNormal1.2-4.0The [facility] HospitalComment on above:Order Comment: No: Do not add to previous drawPerformed By: #### 22055 #### [facility] [address] [place] [address], USALymphocytes/100 WBC (Bld)28.2 %Cvmtgd26.0-45.0The [facility] HospitalComment on above:Order Comment: No: Do not add to previous drawPerformed By: #### 71039 #### [facility] [address] [place] [address], [facility]H (RBC) [Entitic mass]28.9 otWjotot36.0-33.0The [facility] HospitalComment on above:Order Comment: No: Do not add to previous drawPerformed By: #### 13779 #### [facility] [address] [place] [address], [facility] HOSPITALMCHC (RBC) [Mass/Vol]31.4 g/dLLow32.0-35.0The [facility] HospitalComment on above:Order Comment: No: Do not add to previous drawPerformed By: #### 99245 #### [facility] [address] [place] [address], USAMCV (RBC) [Entitic vol]92.0 aHEyxunh74.0-98.0The [facility] HospitalComment on above:Order Comment: No: Do not add to previous drawPerformed By: #### 01592 #### [facility] [address] [place] [address], USAMonocytes (Bld) [#/Vol]0.4 10*3/uLNormal0.1-1.0The [facility] HospitalComment on above:Order Comment: No: Do not add to previous drawPerformed By: #### 93936 #### [facility] [address] [place] [address], USAMONOS6.2 %Normal5.0-12.0The [facility] HospitalComment on above:Order Comment: No: Do not add to previous drawPerformed By: #### 85009 #### [facility] [address] [place] [address], USANeutrophils/100 WBC (Bld)61.6 %Mnpjeg33.0-72.0The [facility] HospitalComment on above:Order Comment: No: Do not add to previous drawPerformed By: #### 04802 #### [facility] [address] [place] [address], USANucleated RBC/100 WBC (Bld) [Ratio]0 %Normal0-0The [facility] HospitalComment on above:Order Comment: No: Do not add to previous drawPerformed By: #### 66363 #### [facility] [address] [place] [address], USAPLAT UNU800 10*3/hWLoqvij824-014Kwj [facility] HospitalComment on above:Order Comment: No: Do not add to previous draw Performed By: #### 17011 #### [facility] [address] [place] [address], USARBC (Bld) [#/Vol]3.63 10*6/uLLow3.80-5.00The [facility] HospitalComment on above:Order Comment: No: Do not add to previous drawPerformed By: #### 11005 #### [facility] [address] [place] [address], USAWBC (Bld) [#/Vol]6.45 10*3/uLNormal4.00-10.60The [facility] HospitalComment on above:Order Comment: No: Do not add to previous drawPerformed By: #### 95355 #### [facility] [address] [place] [address], [facility] GENERAL HOSPITALLIPASE BLOODon 46-36-3730Pqjqxw [Catalytic activity/Vol]13 Units/JDhhrsh86-85Gho [facility] HospitalComment on above: Performed By: #### 96194, 72995 #### [facility] [address] [place] [address], [facility] Vital Signs Date TimeVital SignValuePerforming ThimbgwakSzxlvpim86-19-8541 13:48-0400Body jngfiu792.18 Maria T Youssef TECHNICAL PROJECT COORDINATOR-C Work Phone: [phone] [place], [place] [address]10-21-2025 13:48-0400 Body mass index (BMI) [Ratio]30.2 kg/r7DyvkxvJudi Ugaldemer TECHNICAL PROJECT COORDINATOR-C Work Phone: [phone] [place], [place] 660[address]10-21-2025 13:48-0400 Body iwduhv33.54 kgJudi Youssef TECHNICAL PROJECT COORDINATOR-C Work Phone: [facility]10-21-2025 13:48-0400 Diastolic blood ugbeevny57 mm[Hg]Judi Youssef TECHNICAL PROJECT COORDINATOR-C Work Phone: [facility]10-21-2025 13:48-0400 Heart rate50 /minJudi Youssef TECHNICAL PROJECT COORDINATOR-C Work Phone: [phone] [place], [place] [address]10-21-2025 13:48-0400 Systolic blood ppnvnykz479 mm[Hg]Judi MARION Work Phone: [facility]07-14-2025 13:05-0400 Body .[address] [place], [place] 6886007-14-2025 13:05-0400Body mass index (BMI) [Ratio]29.44 kg/m2Stcz [address] [place], [place] 6886007-14-2025 13:05-0400Body hweyat50.[address] [place], [place] 6886007-08-2025 23:00-0400 Diastolic blood grtkmtnu39 mm[Hg]Kailey Saffle VICE ADMIRAL Work Phone: [facility]07-08-2025 23:00-0400 Heart rate57 /minCourtney Saffle VICE ADMIRAL Work Phone: [address] [place], [place] 2110507-08-2025 23:00-0400 Respiratory rate13 /minCourtsaige Saffle VICE ADMIRAL Work Phone: [address] [place], [place] 2110507-08-2025 23:00-0400 SaO2% (BldA) [Mass fraction]96 %Kailey Saffle VICE ADMIRAL Work Phone: [facility]07-08-2025 23:00-0400 Systolic blood hsacnnao564 mm[Hg]Kailey Saffle VICE ADMIRAL Work Phone: [facility]07-08-2025 20:08-0400 Body aatwph726.18 cmCourtsaige Saffle VICE ADMIRAL Work Phone: [facility]07-08-2025 20:08-0400 Body sjcuaabekep85.9 [degF]Kailey Saffle VICE ADMIRAL Work Phone: [facility]07-08-2025 20:08-0400 Body fwspyn61.45 kgComaximus Saffle VICE ADMIRAL Work Phone: [facility]05-05-2025 14:15-0400 Body xkijma718.2 Wisam HAQ Work Phone: [facility] InstituteUhfciuygaz19-04-9893 14:15-0400Body mass index (BMI) [Ratio]29.44 kg/m2Nikki Ayoub PA Work Phone: [facility] InstituteWupgewxgya62-71-0589 14:15-0400Body bpfifi12.28 kgNikki Ayoub PA Work Phone: [facility] HospitalMkiezbnjhw15-48-5702 14:15-0400Diastolic blood fwdgudyw39 mm[Hg]Nikki Ayoub PA Work Phone: [facility] InstituteOucawygfzm63-12-0624 14:15-0400Heart rate52 /min Nikki Ayoub PA Work Phone: [facility] InstituteMcqlrpqwfs31-63-4821 14:15-0400Respiratory rate16 /minNikki Ayoub PA Work Phone: [facility] InstituteMcmxjjawgn70-23-9372 14:15-2572KnR6% (BldA) [Mass fraction]98 %Nikki Ayoub PA Work Phone: [facility] InstituteXkrkqtysja56-05-7011 14:15-0400Systolic blood tztteaqa395 mm[Hg]Nikki Ayoub PA Work Phone: [facility] InstituteUpgbebxoqc65-54-4453 10:51-0400Body .2 cmAnely Ayoub PA Work Phone: [facility] InstituteMxcsbxsfdz64-36-1676 10:51-0400Body mass index (BMI) [Ratio]30.23 kg/m2Nikki Ayoub PA Work Phone: [facility] InstituteSbjunppmih00-06-9178 10:51-0400Body fkapbq90.54 kgNikki Ayoub PA Work Phone: [place] [address]Scqarcrxnq38-39-2300 10:51-0400Diastolic blood sjknoaja82 mm[Hg]Nikki Ayoub PA Work Phone: [place] [address]Oqoijzrmcz59-70-6494 10:51-0400Heart rate77 /min Nikki Ayoub PA Work Phone: [place] [id number] 10:51-0400Respiratory rate16 /minNikki Ayoub PA Work Phone: [facility] InstituteKcbdegkphg62-04-6959 10:51-8589IjM3% (BldA) [Mass fraction]99 %Nikki Ayoub PA Work Phone: noReynolds [facility] HospitalAeqrwxpicd77-44-6307 10:51-0400Systolic blood mkaxfoub286 mm[Hg]Nikki Ayoub PA Work Phone: [facility] InstituteFowocmhdvs90-88-0747 18:00-0500Hourly Rounding Eliezer [facility]aster [facility]02-15-2025 18:00-0500 Promise to ReturnWilliam Paster [facility]02-15-2025 17:00-0500 Hourly RoundingWilliam Paster [address] [place], [place] [address]2902-15-2025 17:00-0500 Promise to ReturnWilliam Paster [facility]02-15-2025 16:00-0500 Hourly RoundingWilliam Paster [facility]02-15-2025 16:00-0500 Promise to ReturnWilliam Paster [facility]02-15-2025 13:48-9877QsK4% (BldA) [Mass fraction]96 %Eliezer Paster [facility]02-15-2025 11:46-0500Heart rate54 /minWilliam Paster [facility]02-15-2025 11:46-2482OhP7% (BldA) [Mass fraction]96 %Eliezer Paster [facility]02-15-2025 11:44-0500 Diastolic blood cqkipxmi09 mm[Hg]Eliezer Paster [facility]02-15-2025 11:44-0500Mean blood qksnakca76 mm[Hg]Eliezer Paster [facility]02-15-2025 11:44-0500 Systolic blood ivahnbam248 mm[Hg]Eliezer Paster [facility]02-15-2025 11:44-0500Body kripkgfykcd94.7 [degF]Eliezer Paster [facility]02-15-2025 10:24-0500 Diastolic blood vxjfzehm58 mm[Hg]Eliezer Paster [facility]02-15-2025 10:24-0500Heart rate77 /minWilliam Paster [facility]02-15-2025 10:24-0500 Systolic blood rpzxvfty134 mm[Hg]Eliezer Paster [address] [place], [place] 9982902-15-2025 07:55-0500Heart rate49 /minWilliam Paster [facility]02-15-2025 07:55-4883HeM7% (BldA) [Mass fraction]97 %Eliezer Paster [facility]02-15-2025 07:53-0500Mean blood ykraipjr56 mm[Hg]Eliezer Paster [facility]02-15-2025 07:53-0500Body vixfwakrimu94.52 [degF]Eliezer Paster [facility]02-15-2025 04:00-0500gluc 93 mg/dLWilliam Paster [address] [place], [place] 9982902-15-2025 03:57-0500Heart rate54 /minWilliam Paster [facility]02-15-2025 03:56-0500Mean blood mm[Hg]Eliezer Paster [facility]02-15-2025 03:56-0500Body oyapmcjlitz63.06 [degF]Eliezer Paster [facility]02-15-2025 03:12-0500Heart rate49 /minWilliam Paster [address] [place], [place] 9982902-15-2025 03:12-0500Mean blood tvyphbxp82 mm[Hg]Eliezer Paster [address] [place], [place] 9982902-15-2025 03:12-0500 Respiratory rate16 /minWilliam Paster [address] [place], [place] 0486302-15-2025 01:00-0500Heart rate58 /minWilliam Paster [address] [place], [place] 9982902-15-2025 01:00-0500Mean blood jdztiira21 mm[Hg]Eliezer Paster [address] [place], [place] 9982902-15-2025 00:00-0500gluc 93 mg/dLWilliam Paster [address] [place], [place] 9982902-14-2025 23:00-0500Heart rate61 /minWilliam Paster [facility]02-14-2025 23:00-0500Mean blood wqslorvd64 mm[Hg]Eliezer Paster [address] [place], [place] 9982902-14-2025 20:30-0500Body cdqalfzphsl04.06 [degF]Eliezer Paster [address] [place], [place] [address]Comment on above:Result Comment: Patient arrives to room 212. Oriented to room.10-19-2024 20:30-0500 Respiratory rate16 /minWilliam Paster [address] [place], [place] 0486302-14-2025 19:00-0500 Respiratory rate22 /minHelenlanegonzalez Paster [facility]02-14-2025 17:21-0500Body qvcfbekufss01.42 [degF]Eliezer Lorenzo [facility]12-26-2024 07:25-0500Body zloziscndqf61.9 [degF]Pete Otto MD Work Phone: [facility]12-26-2024 07:25-0500Diastolic blood dluskdbj40 mm[Hg]Pete Otto MD Work Phone: [facility]12-26-2024 07:25-0500Heart rate61 /Almas Otto MD Work Phone: [facility]12-26-2024 07:25-0500 Respiratory rate16 /Almas Otto MD Work Phone: [facility]12-26-2024 07:25-8285ZnL4% (BldA) [Mass fraction]96 %Pete Otto MD Work Phone: [facility]12-26-2024 07:25-0500Systolic blood ejsdppxn065 mm[Hg]Pete Otto MD Work Phone: [facility]12-24-2024 16:30-0500Body vwpsoe243.2 Bimal Otto MD Work Phone: [facility]12-24-2024 16:30-0500Body mass index (BMI) [Ratio]28.82 kg/t3KfaindlbwPete Otto MD Work Phone: [facility]12-24-2024 16:30-0500Body wccisw51.5 kgPete Otto MD Work Phone: [facility]12-13-2024 13:40-0500Body ognzpzcdcig62.7 [degF]Jose Miguel Lucero MD Work Phone: bon [employer] [facility] HospitalBenjamin's DeskOtuhqk40-68-0841 13:40-0500Diastolic blood mm[Hg]Jose Miguel Lucero MD Work Phone: bon [facility] CenterStrut12-13-2024 13:40-0500Heart rate68 /Patience Lucero MD Work Phone: bon [facility] CenterRainStor [facility] Cagzoa96-03-2351 13:40-0500 Respiratory rate12 /Patience Lucero MD Work Phone: bon [facility] CenterRainStor [facility] HospitalBenjamin's DeskOblewv03-77-3331 13:40-3632GsW2% (BldA) [Mass fraction]99 %Jose Miguel Lucero MD Work Phone: bon [facility] CenterRainStor [facility] HospitalAllied Digital Services Erqxzn23-48-3151 13:40-0500Systolic blood pcdpraqa351 mm[Hg]Jose Miguel Lucero MD Work Phone: Ron [facility] CenterRainStor [facility] HospitalHkitah64-18-8544 11:29-0500Body unyurx526.2 Danny Lucero MD Work Phone: bon [facility] CenterRainStor [facility] Htalxj27-15-3212 11:29-0500Body mass index (BMI) [Ratio]29.75 kg/z2MsgyhJose Miguel Lucero MD Work Phone: bon [facility] CenterRainStor [facility] HospitalCrzvfs67-55-3975 11:29-0500Body ocgpgl70.18 Jesse Lucero MD Work Phone: bon [facility] CenterRainStor [facility] HospitalXrjlbe15-66-2986 11:29-0500Body xelhvt261.2 Baldomero Hodge MD Work Phone: noRe[facility] HospitalGzcfqqqtjt87-96-7399 11:29-0500Body mass index (BMI) [Ratio]29.44 kg/w9KtzqzKulwant Hodge MD Work Phone: noRe[facility] HospitalFqlkokjoor50-02-0770 11:29-0500Body shfbso83.28 Jaya Hodge MD Work Phone: [address] [place], [place] [address]Gpocfbojrg94-34-4288 11:29-0500Diastolic blood qmsksnaw15 mm[Hg]Kulwant Hodge MD Work Phone: 1([phone] [place], [place] [address]Oegtqyykeg69-34-3077 11:29-0500Heart rate68 /min Kulwant Hodge MD Work Phone: 1(263)[facility] [place] [address] HealthcareComment on above:02 SAT 96%07-13-2024 11:29-0500Respiratory rate16 /minKulwant Hodge MD Work Phone: 1(888)[address] [place], [place] 3651111-08-2024 11:29-0500Systolic blood mkgaavgz270 mm[Hg]Kulwant Hodge MD Work Phone: 1(606)[address] [place], [place] 3651110-16-2024 11:08-0400Body lobref729.2 Baldomero Hodge MD Work Phone: 1(941)[facility] [place], [place] [address]Nojbnhulct19-53-7445 11:08-0400Body mass index (BMI) [Ratio]28.98 kg/y2OlrsbKulwant Hodge MD Work Phone: 1(096)[facility] [place], [place] [address]Eauvysyvdf73-40-2665 11:08-0400Body bwzyea44.92 kgKulwant Hodge MD Work Phone: 1(825)[address] [place], [place] [address]Uybtgvvbrx64-13-9615 11:08-0400Diastolic blood ebthnbct77 mm[Hg]Kulwant Hodge MD Work Phone: 1(593)[address] [place], [place] [address]Psnmnbbkyr25-71-4136 11:08-0400Heart rate62 /min Kulwant Hodge MD Work Phone: 1(233)[address] [place], [place] [address]Qwlzoxrysp14-26-1238 11:08-0400Respiratory rate16 /minKulwant Hodge MD Work Phone: 1(934)[address] [place], [place] [address]Klbimkawda44-02-6529 11:08-0400Systolic blood tslhyvju618 mm[Hg]Kulwant Hodge MD Work Phone: [address] [place], [place] [address]Npqptbqboa64-02-4854 10:50-0400Diastolic blood kdiodzim57 mm[Hg]DONI Youssef Work Phone: [facility]09-06-2024 10:50-0400 Heart rate67 /minNP-C Judi Youssef Work Phone: 1(878)[address] [place], [place] 0070709-06-2024 10:50-0400 Respiratory rate16 /minNP-C Judi Youssef Work Phone: 1(212)[address] [place], [place] 0070709-06-2024 10:50-0400 SaO2% (BldA) [Mass fraction]100 %TECHNICAL PROJECT COORDINATOR-C Judi Youssef Work Phone: 1(106)[address] [place], [place] 0070709-06-2024 10:50-0400 Systolic blood ldeuokox768 mm[Hg]TECHNICAL PROJECT COORDINATOR-C Judi Youssef Work Phone: 1(205)[address] [place], [place] 0070709-06-2024 08:23-0400 Body rlwnix811.18 cmNP-C Judi Youssef Work Phone: 1(857)[address] [place], [place] 0070709-06-2024 08:23-0400 Body zgguvs37.64 kgNP-C Judi Youssef Work Phone: 1(620)[facility]1990[facility]08-22-2024 08:27-0400 Body alkrko802.18 cmAdena [facility]08-22-2024 08:27-0400Body mass index (BMI) [Ratio]28.5 kg/k1TfqymhoatAdena Fayette Medical Center08-22-2024 08:27-0400Body oxvewo28.55 kgAdena [facility] Center08-22-2024 08:27-0400Diastolic blood lczyvwlc43 mm[Hg][facility] 04-26-2024 08:27-0400Heart rate59 /minA[facility] 04-26-2024 08:27-0400Systolic blood kjwyhngl173 mm[Hg][facility]06-13-2024 09:03-0400Blood Pressure LocationAurora Orzech [facility]06-13-2024 09:03-0400Body dhqihrjaltl23.7 [degF]Yolanda Orzech [facility]06-13-2024 09:03-0400Diastolic blood bjdhwyrh62 mm[Hg]Yolanda Orzech [facility]06-13-2024 09:03-0400Heart rate78 /minAurora Orzech [facility]06-13-2024 09:03-0400Systolic blood wcrngypp959 mm[Hg]Yolanda Orzech [facility] [place] 035211-17-2023 13:19-0500Body eclosy250.[address] Work Phone: [phone] Memorial HospitalBepafg55-28-0779 13:19-0500Body gyurug41.[address] Work Phone: [phone] Memorial HospitalBufqrn90-38-9139 11:40-0500Diastolic blood mm[Hg]Marques Bradley MD Work Phone: [phone]11-09-2023 11:40-0500Heart rate56 /min Marques Bradley MD Work Phone: [phone]11-09-2023 11:40-0500Respiratory rate 16 /minMattdoreenw Mirna BAKER Work Phone: [phone] [address]-09-2023 11:40-7861GeK8% (BldA) [Mass fraction]97 %Marques Bradley MD Work Phone: [phone] [address]-09-2023 11:40-0500Systolic blood lvmpydww430 mm[Hg]Marques Bradley MD Work Phone: [phone] [address]-09-2023 11:10-0500Body temperature 97.2 [degF]Marques Bradley MD Work Phone: [phone] [address]-09-2023 08:34-0500Body .2 cmMatthew Kroh MD Work Phone: [facility]11-09-2023 08:34-0500Body kg Marques Bradley MD Work Phone: [facility]08-17-2023 09:30-0400Body ucafqc310.18 Ruy Omalley Other [facility] Other 08-17-2023 09:30-0400Body mass index (BMI) [Ratio] 31.21 kg/m8Starqxkoeddy Omalley Other [facility] Other 08-17-2023 09:30-0400Body rnxoft76.4 kgLawreddy Omalley Other [facility] Other 08-17-2023 09:30-0400Diastolic blood jgqmudih22 mm[Hg] Renny Omalley Other [facility] Other 08-17-2023 09:30-0400Systolic blood xdlyjlbr232 mm[Hg] Renny Omalley Other [facility] Other 07-19-2023 07:33-0400Diastolic blood ynubramc06 mm[Hg] TECHNICAL PROJECT COORDINATOR-C Judi Youssef Work Phone: [facility]07-19-2023 07:33-0400 Heart rate81 /minNP-C Judi Youssef Work Phone: [facility]07-19-2023 07:33-0400 Respiratory rate14 /minNP-C Judi Youssef Work Phone: [facility]07-19-2023 07:33-0400 SaO2% (BldA) [Mass fraction]95 %TECHNICAL PROJECT COORDINATOR-C Judi Youssef Work Phone: [facility]07-19-2023 07:33-0400 Systolic blood tzenlrop371 mm[Hg]TECHNICAL PROJECT COORDINATOR-C Judi Ugaldemer Work Phone: [facility]07-19-2023 06:20-0400 Body bliwrv100.18 cmNP-C Judi Ugaldemer Work Phone: [facility]07-19-2023 06:20-0400 Body vzjyuipgyno28.4 [degF]TECHNICAL PROJECT COORDINATOR-C Judi Ugaldemer Work Phone: [facility]07-19-2023 06:20-0400 Body hrlrow94 kgNP-C Judi Ugaldemer Work Phone: [facility]06-17-2023 00:53-0400 Body kavjtcsawzu78.98 [degF]Kaylinn Dokken [address]06-17-2023 00:53-0400 Diastolic blood sgcvamhr83 mm[Hg]Kaylinn Dokken [address]06-17-2023 00:53-0400Heart rate75 /minFranklinylinn Dokken [address]06-17-2023 00:53-0400 Respiratory rate16 /minKaylinn Dokken [address] [place], [place] 1314806-17-2023 00:53-9880ThD0% (BldA) [Mass fraction]98 %Kaylinn Dokken [address] [place], [place] 1314806-17-2023 00:53-0400 Systolic blood qaeefcdv054 mm[Hg]Kaylinn Dokken [address] [place], [place] 1314806-13-2023 10:33-0400 Diastolic blood jromfrjt50 mm[Hg]TECHNICAL PROJECT COORDINATOR-C Judi Ugaldemer Work Phone: 1(317)343-[address] [place], [place] 6603206-13-2023 10:33-0400 SaO2% (BldA) [Mass fraction]100 %TECHNICAL PROJECT COORDINATOR-C Judi Regina Work Phone: 1(152)483-[address] [place], [place] 6603206-13-2023 10:33-0400 Systolic blood znkarndw086 mm[Hg]TECHNICAL PROJECT COORDINATOR-C Judi Regina Work Phone: [phone])[address]06-13-2023 10:00-0400 Heart rate83 /minNP-C Judi Regina Work Phone: [phone])483-[address] [place], [place] 6603206-13-2023 10:00-0400 Respiratory rate16 /minNP-C Judi Regina Work Phone: 1(291)[address] [place], [place] 0070706-13-2023 08:06-0400 Body yrfzqf829.18 cmNP-C Judi Regina Work Phone: 1(211)[address] [place], [place] 0070706-13-2023 08:06-0400 Body .6 [degF]TECHNICAL PROJECT COORDINATOR-C Judi Regina Work Phone: [phone])[address] [place], [place] 0070706-13-2023 08:06-0400 Body fzuoas77.2 kgNP-C Judi Regina Work Phone: 1(544)[facility]-[address] [place], [place] 6603202-21-2023 08:03-0500 Diastolic blood lmjmwiyn96 mm[Hg]TECHNICAL PROJECT COORDINATOR-C Judi Regina Work Phone: 1(910)[address] [place], [place] 0070702-21-2023 08:03-0500 Heart rate70 /minNP-C Judi Regina Work Phone: 1(210)483-[address] [place], [place] 6603202-21-2023 08:03-0500 Respiratory rate18 /minNP-C Judi Regina Work Phone: [phone])[address] [place], [place] 0070702-21-2023 08:03-0500 SaO2% (BldA) [Mass fraction]98 %TECHNICAL PROJECT COORDINATOR-C Judi Regina Work Phone: 1(277)[address]02-21-2023 08:03-0500 Systolic blood umstzlip288 mm[Hg]TECHNICAL PROJECT COORDINATOR-C Judi Regina Work Phone: 1([phone]02-21-2023 06:17-0500 Body mohamg858.18 cmNP-C Judi Youssef Work Phone: [facility]02-21-2023 06:17-0500 Body bxoukylmzbm89.2 [degF]TECHNICAL PROJECT COORDINATOR-C Judi Youssef Work Phone: [facility]02-21-2023 06:17-0500 Body .9 kgNP-C Judi Youssef Work Phone: [facility]11-17-2022 14:34-0500 Diastolic blood mm[Hg]Ospina SALAM 261-0792Yndvmd-Mevqo[address] [place], [place] 2331611-17-2022 14:34-0500Mean blood josyucic222 mm[Hg]Ospina SALAM 906-9369Tnrooz-Jvkon[address] [place], [place] 2331611-17-2022 14:34-0500Systolic blood qurdgvra766 mm[Hg]Ospina SALAM 221-2036Ajvrox-Axwiy[address] [place], [place] 2331611-17-2022 14:30-0500Blood Pressure LocationMaher SALAM 784-2935Faozvo-GbcieUniversity Hospitals [facility]11-17-2022 14:30-0500Diastolic blood kycsuprf26 mm[Hg]Ospina SALAM 777-9708Olusbb-WndvwUniversity Hospitals Ahu[facility] Center11-17-2022 14:30-0500Heart rate62 /minMaher SALAM 383-0954Vqivey-PexazMichael Ville [address]-17-2022 14:30-0500Respiratory rate16 /minMaher SALAM [phone]-UnjpzMichael Ville [address]-17-2022 14:30-2962VtB8% (BldA) [Mass fraction]98 %Ospina SALAM 740-7757Bgghkv-ErfauMichael Ville [address]-17-2022 14:30-0500Systolic blood pimdjuoa904 mm[Hg]Ospina SALAM 382-3795Axecnp-KxcdmDaniel Ville [address]-10-2022 14:50-0400Blood Pressure LocationBeth Jimmy 869-2475Qzbmfi-XfndxCl[facility] 08-10-2022 14:50-0400Body epfdkijblft11.16 [degF]Monique Marquez 610-8111Dmzkae-RfpztCl[facility] 236175-19-7467 14:50-0400Diastolic blood yjqejmau36 mm[Hg] Monique Marquez 037-5025Omzsji-XqvsrClinton [facility] 900464-06-4490 14:50-0400Heart rate72 /minMonique Marquez 461-8262Xciydj-BzbcfClinton [facility] 084235-40-6153 14:50-9047MrF4% (BldA) [Mass fraction]97 % Monique Marquez 180-0933Stmevi-RmtklClinton [facility] 08-10-2022 14:50-0400Systolic blood xsiwwdnx336 mm[Hg] Monique Marquez 318-5841Jbnvwt-ZhnqdClinton [facility] 078181-90-6440 13:36-0400Blood Pressure LocationBevalerie Marquez 283-8781Fzjkwb-GtywcClinton [facility] 05-26-2022 13:36-0400Body yaegxbytbey92.52 [degF]Monique Marquez 227-9043Wfxzim-ImvxgCl[facility] 05-26-2022 13:36-0400Diastolic blood mm[Hg] Monique Castañedaz 776-6039Hhwgwf-XlunyCl[facility] 05-26-2022 13:36-0400Heart rate73 /minBeth Jimmy 355-6538Bcsurq-PtkmrClinton [facility] 05-26-2022 13:36-8511BjR4% (BldA) [Mass fraction]96 % Monique Marquez 784-6010Lrhcdb-ErrtlClinton [facility] 05-26-2022 13:36-0400Systolic blood bhhoglge312 mm[Hg] Monique Marquez 753-2452Fcvuci-KejarClinton [facility] 066469-54-0815 10:15-0400Blood Pressure LocationHonorhealth [facility] SALAM [facility]05-09-2022 10:15-0400 Diastolic blood bzfvedti286 mm[Hg]Ospina SALAM [facility]05-09-2022 10:15-0400Heart rate70 /minMaher SALAM [facility]05-09-2022 10:15-0400 Respiratory rate28 /minMaher SALAM [facility]05-09-2022 10:15-6316UtB1% (BldA) [Mass fraction]99 %Ospina SALAM [facility]05-09-2022 10:15-0400 Systolic blood wnomderk245 mm[Hg]Ospina SALAM [facility]05-09-2022 10:05-0400Blood Pressure LocationWvher SALAM [facility]05-09-2022 10:05-0400 Diastolic blood mm[Hg]Ospina SALAM [facility]05-09-2022 10:05-0400Heart rate67 /minMaher SALAM [facility]05-09-2022 10:05-0400 Respiratory rate14 /minMaher SALAM [facility]05-09-2022 10:05-2654KeD8% (BldA) [Mass fraction]97 %Ospina SALAM [facility]05-09-2022 10:05-0400 Systolic blood twriypob797 mm[Hg]Ospina SALAM [facility]05-09-2022 10:00-0400Blood Pressure LocationMaher SALAM [facility]05-09-2022 10:00-0400 Diastolic blood ebwqitkg62 mm[Hg]Ospina SALAM [facility]05-09-2022 10:00-0400Heart rate66 /minMaher SALAM [facility]05-09-2022 10:00-0400 Respiratory rate16 /minMaher SALAM [facility]05-09-2022 10:00-0590YvJ8% (BldA) [Mass fraction]98 %Ospina SALAM [facility]05-09-2022 10:00-0400 Systolic blood dedeuloe665 mm[Hg]Ospina SALAM [facility]05-09-2022 09:50-0400Body qebrxelbdzu77.52 [degF]Ospina SALAM [facility]05-09-2022 09:45-0400 Respiratory rate15 /minMaher SALAM [facility]05-09-2022 09:18-0400Body pelcqwdvemy50.34 [degF]Ospina SALAM [facility]05-09-2022 09:18-0400 Respiratory rate20 /minMaher SALAM [facility] Encounters Encounter DateEncounter TypeCare ProviderFacilityStart: 82-80-9126aksvcaitxd Flavio JUAREZFacility:EU BellevueStart: 06-25-2025 End: 32-39-6024qubwjozoqtAawlqs Sue Cramer NP-C Work Phone: -[facility] BellevueStart: 06-25-2025 End: 47-00-3699Uwoyuij encounter procedureEileen Ferreira VICE ADMIRAL[facility] [place] Work Phone: Start: 06-11-2025 End: 40-42-3898ojtldyplnyZwbdbyd R WATERSFacility:FTMCStart: 06-05-2025 End: 67-99-1211kkbcqsmggaSemrquuu Talal SarminiFacility:[facility] DHStart: 06-05-2025 End: 15-17-3385Qcshyfx encounter procedureMuhammad Talal Sarmini [phone]-BkhsdClinton [facility] Hospital [facility] Start: 04-09-2025 End: 20-88-9662jyvjgwndaeMbzlfcxm Talal SarminiFacility:FTMCStart: 04-08-2025 End: 71-68-8931syvcvbhmryCJKLMZ S CRAMERFacility:EU BellevueStart: 04-08-2025 End: 44-01-2477Wfmikxk encounter procedureFlavio JUAREZ [facility] Amirah start: 04-02-2025 End: 54-81-6979ldcpitiosuLsavharc Talal SarminiFacility:FTMCStart: 03-27-2025 End: 30-59-2903lhxdvoaqzxDiwmrdzw Talal SarminiFacility:[facility] DHStart: 03-27-2025 End: 62-62-1012Scgknms encounter procedureMuhammad Talal Sarmini [phone]-FrofxClinton [facility] Hospital [facility] Start: 23-74-3975mkwdwhuwvzLomjvutg SarminiFacility:EU [place]kyStart: 03-18-2025 End: 00-99-5979svhjchkokdEMZKVOGenesis Hospitaltart: 03-18-2025 End: 39-47-8120Dblieergpn hospital visit by physicianStcz Pat 3STCZ Pre-Admit TestingStart: 03-12-2025 End: 32-94-0508Raymhwnyl department patient visitCopatiencesaige Mosley VICE ADMIRAL Work Phone: [phone]-Gfvjrkbos Room Work Phone: Start: 02-28-2025 End: 30-79-0222yziedoddlpYSQAZAshtabula County Medical Centertart: 02-16-2025 End: 26-50-6875Rmdlpsgjv department patient visitProsper Adam [facility] Start: 01-07-2025 End: 76-90-9115Bzqwji outpatient visit 25 [facility] hospitalNikki HAQ Work Phone: aNA SUADUEComment on above:Seizure (CMS/HCC) (Primary Dx); History of obstructive sleep apnea; Migraine without aura and without status migrainosus, not intractable (CMS/HCC); DizzinessStart: 01-07-2025 End: 62-92-9272nbldzhugynXJHZ HILLNot AvailableStart: 01-07-2025 End: 95-63-4154Sgicta flowschristian hospitalNikki HAQ Work Phone: ana BELLEVUEStart: 01-07-2025 End: 79-98-0035Hkbpif flowschristian hospitalNikki HAQ Work Phone: ana BELLEVUEStart: 12-28-2024 End: 87-94-3905wnbnbvpoiyVMITNAshtabula County Medical Centertart: 12-18-2024 End: 33-34-2965jviypsepxpVbgw [facility] Work Phone: Start: 12-18-2024 End: 16-35-1368Uafpsury ReferredNicanor Perez MD Work Phone: [facility]ospStart: 11-26-2024 End: 89-69-6438Rnoeez outpatient visit [facility] hospitalNikki Mega HAQ Work Phone: ana BELLEVUEComment on above:Seizure (CMS/HCC) (Primary Dx); History of obstructive sleep apnea; Migraine without aura and without status migrainosus, not intractable (CMS/HCC) Start: 11-26-2024 End: 73-96-2486syvpmuzrbbKETO HILLNot AvailableStart: 10-19-2024 End: 59-18-7176wlnultrvfaCnrsfwm J. PasterFacility:FTMCStart: 10-19-2024 Emergency department patient visitAurora OrzechFacility:FTMCStart: 10-19-2024 End: 55-00-1067CmjmsfhfttqNpzzcit J. [facility] Start: 09-17-2024 End: 59-82-2058cmfsznlcjwGCXLLAshtabula County Medical Centertart: 08-28-2024 End: 50-97-3716Ykdgqmzfdc and management of inpatientAlemike Otto MD Work Phone: stvz Renal//Med SurgComment on above:Ileus (HCC) (Primary Dx); Generalized abdominal pain; HypokalemiaStart: 08-17-2024 End: 83-19-1086rxthkbaruwJGUOD SOFIMercy Buras HospitalStart: 08-17-2024 End: 26-53-2199Liqrvxayxv hospital visit by Jose Lucero MD Work Phone: stcz ENDOComment on above:Other dysphagia (Primary Dx) Start: 07-13-2024 End: 65-96-4976Cggwgt Emy Hodge MD Work Phone: noms ENDOCRINOLOGYStart: 07-13-2024 End: 85-31-4804Aktrlz Emy Hodge MD Work Phone: noms ENDOCRINOLOGYStart: 07-13-2024 End: 48-41-3117Tjtftf outpatient visit 25 minutesKulwant Hodge MD Work Phone: noms ENDOCRINOLOGYComment on above:Hypoglycemia Start: 07-13-2024 End: 73-24-3490parytceepsLYSBM F SABBAGHNot AvailableStart: 06-20-2024 End: 58-27-8695Zhuubx Emy Hodge MD Work Phone: noms ENDOCRINOLOGYStart: 06-20-2024 End: 63-15-2439Rdiavl Emy Hodge MD Work Phone: noms ENDOCRINOLOGYStart: 06-20-2024 End: 21-93-2580yuhgftyhjeAJCEW F SABBAGHNot AvailableStart: 06-20-2024 End: 49-83-6103Dpcnke outpatient new 45 minutesKulwant Hodge MD Work Phone: noms ENDOCRINOLOGYComment on above:Hypoglycemia (Primary Dx); Encounter for dietary consultationStart: 06-19-2024 End: 42-24-5570Jxmsubx encounter procedureNP-Paula Youssef Work Phone: [facility] Main [place] Work Phone: Start: 06-19-2024 End: 53-51-0127wzzhtchxnqGS-C Judi Youssef Work Phone: [facility] Work Phone: Start: 06-07-2024 End: 76-22-2227wqhyppdszeIgfbbb X OrzechFacility:EU SanduskyStart: 06-07-2024 End: 49-22-8717Wrbjyky encounter procedureAurora X Orzech [facility] Start: 05-14-2024 End: 42-53-1029pwreactjcvPDLYQAshtabula County Medical Centertart: 16-66-0327Cvu-patient / Qsr-smbdlRM-S Judi Youssef Work Phone: [facility] Work Phone: Start: 05-11-2024 End: 03-44-8540Jbjisimyf to same day surgery centerNP-C Judi Youssef Work Phone: [facility] Work Phone: Start: 05-11-2024 End: 38-05-4988xmfxgtwcfyMB-C Judi Youssef Work Phone: [facility] Work Phone: Start: 04-26-2024 End: 08-24-9040pvhzbajhfaSqbnldarwMansfield Hospital Work Phone: Start: 04-26-2024 End: 38-07-9621Owngvaw encounter procedureLife[facility] Work Phone: Start: 51-14-7433Zhh-patient / Zra-lwrukQD-Y Judi Youssef Work Phone: [facility] Work Phone: Start: 03-19-2024 End: 04-62-9344syjzfpcxzuMUMNPProvidence Hospitaltart: 02-16-2024 End: 16-66-2507yqyomasbmuXbwsre X OrzechFacility:BANNERtart: 02-16-2024 End: 75-08-4533Jje Drop offAurora X Orzech [facility] Start: 02-16-2024 End: 28-56-5798Pnugfar encounter procedureAurora X Orzech [facility] [place] Start: 48-45-7000jgimzlghplFzvExnxvt Hospital Ambulatory PPGStart: 08-25-2023 End: 52-14-9711kkrlguryaqQWY [place] PAVLOCKFacility:[facility] Start: 84-58-1889Qlcxjl Ortega Black RNGeneral SurgeryComment on above: Gastroparesis (Primary Dx)Start: 07-22-2023 End: 98-35-3540zwdmlsjfnrNDUVSMQ D KROHFacility:[facility] Hospitaltart: 78-78-4029Uajxyryrk encounterEvelyn Black RNGeneral SurgeryStart: 07-22-2023 End: 82-45-2862Kbddyfhkq therapyAmerico Montalvo RD Work Phone: General SurgeryComment on above:Gastroparesis (Primary Dx); Malnutrition of moderate degree (HCC); Gastro-esophageal reflux disease without esophagitis; Overweight (BMI 25.0-29.9); Dietary counseling and surveillanceStart: 07-22-2023 End: 80-55-6154Lhfwgcbhcgub consultation with Autumn Montalvo RD Work Phone: c[facility] MAINStart: 07-14-2023 End: 18-05-0349pbktngmekjYTTAEWV D KROHFacility:[facility] Hospitaltart: 07-14-2023 End: 20-83-4160Wlrxhhptpa hospital visit by physicianMarques Bradley MD Work Phone: GastroenterologyComment on above:Dysphagia, unspecified type [R13.10]Start: 07-13-2023 End: 65-09-9686scaqfgitimYEKJAQA D KROHFacility:[facility] Hospitaltart: 75-32-6508Ucuitmuum encounterEvelyn Black RNGeneral SurgeryComment on above: ResultsStart: 05-26-2023 End: 49-49-9187inpzqjdrnoSLXUGXR D KROHFacility:[facility] Hospitaltart: 05-25-2023 End: 03-89-9135nffcmgbtqvWBW ANSLEY PAVLOCKFacility:[facility] Start: 05-25-2023 End: 32-58-7152Vcstfph evaluation of patient and reportNurse Gi Lab 2 Work Phone: GastroenterologyComment on above:NauseaStart: 41-36-2021Zhwwwh OnlyEvelyn Blcak RNGeneral SurgeryComment on above:Nausea (Primary Dx); Dysphagia, unspecified typeStart: 05-06-2023 End: 77-93-6296fgfguughbiHYIHZUL D KROHFacility:[facility] Hospitaltart: 52-80-6716Jksdgboqz encounterEvelyn Black RNGeneral SurgeryStart: 04-26-2023 Telephone encounterEvelyn Black RNGeneral SurgeryStart: 04-21-2023 End: 63-89-8680sqkfenpkluGukvfuse McCormack Other [facility] [employer] Other Start: 66-85-6814Dyssyt outpatient visit 15 minutes Renny Ferreira GastroenterologyStart: 42-80-4059Gmymgipis encounterEvelyn Black RNGeneral SurgeryComment on above:Supply Chain Manager - OtherStart: 13-10-4550Mtzventzq encounterGuillermo Martinez DO Work Phone: GastroenterologyComment on above:AppointmentStart: 04-05-2023 End: 10-61-8308dqmlnamlvqRwhf Nany Other [employer] Other Start: 29-76-2930Kokjsescj encounterImad AsaadFPG GastroenterologyStart: 21-64-7798bnukvhxreqLkgelvjn:UHCStart: 03-26-2023 ambulatoryFacility:9090Start: 52-69-8076famxhcpauiCbupbzux:9090Start: 03-24-2023 End: 09-75-4878jvyhadkcrcRueu Asaad Other [employer] Other Start: 19-08-1735Upkfutdht encounterImad AsaadFPG GastroenterologyStart: 03-23-2023 End: 92-35-1560Cnsnizgqv department patient visitDONI Judi Youssef Work Phone: [facility] Work Phone: Start: 03-22-2023 End: 20-75-0440dpfxnmrrelMxkc Asaad Other [employer] Other Start: 46-89-6426Kpnskkaez encounterImad AsaadFPG GastroenterologyStart: 03-09-2023 End: 50-19-9001vebiahetypJznt Asaad Other [employer] Other Start: 77-13-3272Vhmqjugka encounterImad AsaadFPG GastroenterologyStart: 03-01-2023 End: 31-08-9611zpxlucvdlpJjvm Asaad Other [employer] Other Start: 96-07-7423Eyqvsbdkp encounterImad AsaadFPG GastroenterologyStart: 02-19-2023 End: 34-32-4343Auslzupmn department patient visitZabrina Patton [facility] start: 02-15-2023 End: 18-38-0554Bffhxqktl department patient visitNP-C Judi Regina Work Phone: [facility] Work Phone: Start: 11-30-2022 End: 24-93-9420cddaknzvsdMIRRBA CRAMERFacility:R2Jobdc: 11-27-2022 End: 97-12-7242gebrrqoootSVTGVZ CRAMERFacility:X6Lomxb: 11-26-2022 End: 45-34-3649dmepzjcslfMeen Asaad Other [employer] Other Start: 90-40-5086Edjwydugd encounterImad AsaadFPG GastroenterologyStart: 11-04-2022 End: 16-26-4227Bpgxucwyl to same day surgery centerNP-Paula Youssef Work Phone: [facility]-CT Scan Main [place] Work Phone: Start: 11-04-2022 End: 21-06-7656ifqjshsbsvOJ-C Judi Joan Regina Work Phone: [facility] Work Phone: Start: 11-01-2022 End: 15-19-6771heejagkxtzTNMDPR CRAMERFacility:N2Dmxhr: 10-26-2022 End: 31-05-3575Uszwwrtrv department patient visitNP-Paula Lau Regina Work Phone: [facility] Work Phone: Start: 09-21-2022 End: 82-75-3124kporhwqogoPKKGXY CRAMERFacility:B1Nlxoh: 09-18-2022 End: 91-65-5858drjztaslzlWULYRJ RODRIGUEZ .Facility:A1Irfcl: 09-14-2022 End: 70-50-2989lxgbzaolumXR NATALIE GRECHNY .Facility:L5Wnxpl: 09-07-2022 End: 30-60-5527aagjideuwhLjld Asaad Other [employer] Other Start: 93-06-0181Mcaghxeee encounterImad AsaadFPG Referral CoordinatorStart: 09-06-2022 End: 48-12-0109ntdiwjovppXPHJPM CRAMERFacility:W1Ppihg: 08-20-2022 End: 88-09-8691ujyqfiivdrNZVLYN RODRIGUEZ .Facility:K0Qnkcl: 08-17-2022 End: 39-11-7180ibtlvixduqUGGZNC CRAMERFacility:J0Kxqka: 08-11-2022 End: 20-93-1760mpxbkhryfxQZLDNQ CRAMERFacility:M8Vgrik: 08-08-2022 End: 64-92-6752iiogcisekvWAVJY PARKERFacility:J8Qvkzx: 07-22-2022 End: 44-43-2544Zlzlabh encounter [facility] Hospitalher FORBES 082-6546Tvcpxa-SsbamClinton [facility] Start: 07-21-2022 End: 92-97-9266bzymlxtfaoPU NORA WINNFacility:D5Yqnap: 36-70-4986qgzsssnkqu JUDI YOUSSEFFacility:Q3Qdhqp: 53-55-2152Mrdxzclbo for general adult medical examination without abnormal findingsPATREY Singh [facility] Centertart: 07-08-2022 End: 70-94-8496ymslqlodeuPEZOZS CRAMERFacility:M2Uvfab: 07-08-2022 End: 78-26-7517Ttxhvrwos for general adult medical examination without abnormal findingsPAMELA AMIRAMERFacility:F5Fbkcr: 07-05-2022 End: 32-27-4660wglwfmkwvtUM JOHNATHAN RUDOLPHFacility:V3Alqmp: 06-07-2022 End: 00-68-7178bssnglfzvbBTLOGF RODRIGUEZ .Facility:S1Iilnp: 06-06-2022 End: 87-79-8171gprocyuiqtWFXLTX RODRIGUEZ .Facility:Y3Qfzcg: 06-04-2022 End: 97-17-4942jtytbbtosrCW NORA WINNFacility:A8Mokei: 04-29-2022 End: 03-23-4849Cir Drop offMaher SALAM [facility] Start: 04-14-2022 End: 70-23-3858Pgpwhkq encounter procedureMonique Ibrahim Jimmy [phone]-KjxqjClinton [facility] Hospital [facility] Start: 03-27-2022 End: 20-93-3074Ptavhrqclw and management of inpatientSRUPERTO VILLEGASELDERacility:H1 Start: 03-01-2022 End: 33-32-9265Sizbgmd encounter procedureMonique Ibrahim Jimmy [facility] Start: 02-02-2022 End: 73-95-7867ykvycmeqtvBVNUYZ RODRIGUEZ .Facility:V9Edmuw: 01-28-2022 End: 60-54-7556Mqyudji encounter procedureMonique Ibrahim Jimmy [phone]-QbjxkClinton [facility] Hospital [facility] Start: 01-11-2022 End: 22-18-0561Styqbka encounter procedureAnai ROTHMANAM [facility] Start: 12-24-2021 End: 05-15-7546Mnqxrrn encounter procedureJECRALOS MELGOZA [facility] Start: 08-13-2019 End: 25-28-6041Ozvulpvwip and management of inpatientJIANTANA TANGFacility:[facility] [[email or web address]] Procedures DateProcedureProcedure DetailPerforming ClinicianStart: 07-11-3512Uevjyznw tomography of abdomen and pelvis with contrastKailey Mosley APRN Work Phone: Start: 34-72-1999MN angiography of thoraxCourtharbor beach Maryamndmatthew VICE ADMIRAL Work Phone: Start: 52-03-1462Igujy chest X-rayCourtBaystate Noble Hospital VICE ADMIRAL Work Phone: Start: 80-47-5567Yzyty cultureCocentinela [facility] Maryamndmatthew VICE ADMIRAL Work Phone: Start: 25-44-0632Axtwllc blood reagent stripSterri Justice MD Work Phone: Start: 24-70-2195Rvzjkjn blood reagent stripSterri Justice MD Work Phone: Start: 11-90-2299CXJGZ METABOLIC PANEL W/ REFLEX TO MG FOR LOW KAmr Alexandria Mclaughlin MD Work Phone: Start: 16-14-4511Yqpyv count complete auto&auto difrntl wbcChad Mclaughlin MD Work Phone: Start: 10-77-2458Wfisnru blood reagent stripSterri Justice MD Work Phone: Start: 26-57-3535Lfdzcud blood reagent Linda Justice MD Work Phone: start: 75-26-0797Zkkfogd blood reagent stripSterri Justice MD Work Phone: Start: 39-36-4876Lovomkl blood reagent stripSterri Justice MD Work Phone: Start: 16-26-9460Rnpxknu blood reagent stripSterri Justice MD Work Phone: Start: 70-73-8331Xrwpdtsxwi exam abdomen 1 view Nena Nicole MD Work Phone: Start: 14-94-7366Khnbk of magnesiumChad Mclaughlin MD Work Phone: Start: 99-43-8526PMPFB METABOLIC PANEL W/ REFLEX TO MG FOR LOW KAmr Alexandria Mclaughlin MD Work Phone: Start: 31-30-3439Atlvpqa blood reagent stripSalil Lety BAKER Work Phone: Start: 29-53-3654Qfzhk of magnesiumAmfred Mclaughlin MD Work Phone: Start: 08-28-2024 End: 18-25-5061Hcjnkjllawxoi metabolic panelVentura Anaya MD Work Phone: Start: 40-10-2790Zshnzmjbsm exam abdomen 1 view Nena Nicole MD Work Phone: Start: 82-32-1600Xjoe bld gluc mntr dev cleared fda spec home useAhlesli Hodge MD Work Phone: Start: 39-44-8927Vtgl bld gluc mntr dev cleared fda spec home useKulwant Hodge MD Work Phone: Start: 93-97-1905EggwwwnbvraswyedlknquqtqvwSK-C Judi Youssef Work Phone: Start: 78-42-2632Kztdysavvse rig transoral hypopharynx crv esophHelene C Juan Manuelulak RNStart: 67-81-6528Uwrjeylyle motility study w/interp&rptHelene C Hamulak RNStart: 42-34-0350Qujahxfo tomography of abdomen and pelvis with contrastNP-C Judi Youssef Work Phone: Start: 68-53-6152Tunnomtw tomography of abdomen and pelvis with contrastNP-C Judi Youssef Work Phone: Start: 95-53-3953FD of small intestineNP-C Judi Youssef Work Phone: Start: 93-15-9679Cxxfyjju tomography of abdomen and pelvis with contrastNP-C Judi Youssef Work Phone: Start: 63-09-6938KjapiplrfjghrexzedswtbkirgQxisi SALAM Start: 09-31-8817GxigflftugvqixlqlqsionooojVLSLHUZX PERRY Start: 92-90-8245XoojebemeafbqjvjjasczkrjzzCADBAPDG PERRY Start: 40-28-4377VmlqnfqkgdsNeyld Sabbagh MD Work Phone: Start: 21-42-5586ZxastraxkxlNBLVYQJM PERRY Start: 92-78-6652VrdzhozzxrmtvkbkwuhqejyyvqFJWIYXEK PERRY Start: 21-01-5720ZFQZNXWOTRL OF UPPER GI AND SMALL BOWEL USING OTHER CONTRASTROBERT COOMBSStart: 40-08-7349NxjuxmtdlmdWRRPWCKT PERRY Start: 87-55-6823NodoucrgmqpxttkxqhpmspsbimZKCDWGHK PERRY Start: 16-06-4849Lhvxcc surgical mesh (physical object) ROHINI MELGOZA Comment on above:Dr. Mortensen in [place].Hernia repair ROHINI MELGOZA HysterectomyROHINI MELGOZA Plan of Treatment DateCare ActivityDetailAuthorStart: 27-62-7937Xfbvinflf for malignant neoplasm of colonNOMS HealthcareStart: 50-35-1432Wjsepdlus vaccinationInfluenza Vaccine (Season Ended)NOMS HealthcareStart: 04-19-2025 End: 74-88-3472Xjgrlskor to same day surgery acutxp0404/19/2025 12:30 PM EDT - 04/19/2025 1:00 PM EDT Surgery [facility] [address] [place] [address] Jose Miguel Lucero MD [address] [place] [address] COLORECTAL CANCER SCREENING, NOT HIGH RISKSTCZ ENDOComment on above:COLORECTAL CANCER SCREENING, NOT HIGH RISKStart: 04-19-2025 End: 40-36-6553Wuhhripklwj flx dx w/collj spec when pfrmdCOLORECTAL CANCER SCREENING, NOT HIGH RISK Dysphagia, unspecified Screening for colon cancer 04/19/2025 12:30 PM [facility] 04-19-2025 Subsequent hospital visit by wtsjydxwr52/15/2025 12:30 PM EDT Hospital Encounter [facility] [address] [place] [address] Jose Miguel Lucero MD [address] [place] [address] [facility] ENDOStart: 58-07-5224Pwfdsjppi vaccinationFlu vaccine (#1)[facility]Start: 04-01-2025 End: 48-88-4662Trtdhqaqo to same day surgery stuaic5704/01/2025 11:45 AM EDT - 04/01/2025 12:00 PM EDT Surgery [facility] [address] [place] [address] Jose Miguel Lucero MD [address] [place] [address] ESOPHAGOGASTRODUODENOSCOPY BIOPSYSTCZ ENDOComment on above:ESOPHAGOGASTRODUODENOSCOPY BIOPSYStart: 04-01-2025 End: 03-05-6866Bkj transoral biopsy single/multipleESOPHAGOGASTRODUODENOSCOPY BIOPSY Gastroesophageal reflux disease, unspecified whether esophagitis present 04/01/2025 11:45 AM [facility] HospitalStart: 04-01-2025 Subsequent hospital visit by ggihwlggz86/28/2025 11:45 AM EDT Hospital Encounter [facility] [address] [place] [address] Jose Miguel Luecro MD [address] [address] [facility] ENDOStart: 04-01-2025 End: 58-26-7230Rsqvrda encounter ycbpwzbcz24/28/2025 9:40 AM EDT Office Visit [facility] [place] [address] [address] [place] [address] Eileen Fisher, LINDA [address] [facility] [place], [place] PEPPER GONZALEZtart: 01-67-2836Yfiof [facility] Start: 85-30-0550Aewtpufi identified in Urine by CultureUrine St. [facility] Hospitaltart: 02-07-2025 End: 86-26-7650Dydpdgtm Dsftvnh4902/07/2025 9:45 AM EDT Clinical Support [facility] [place] [address] [place] [id number] aNA AMIRAH Start: 01-07-2025 End: 70-38-8472Qncbkip encounter procedureANA AMRIAHComment on above:Arrived Start: 01-07-2025 End: 61-49-9349UUR W Auto Differential panel - BloodCBC auto differential Lab Routine Seizure ([facility]) Expected: 01/07/2025 (Approximate), Expires: 01/2026[facility] InstituteComment on above:Expected: 01/07/2025 (Approximate), Expires: 01/07/2026Start: 01-07-2025 End: 67-02-0001Gqzpgkfbfgdgf metabolic 2000 panel - Serum or PlasmaComprehensive metabolic panel Lab Routine Seizure ([facility]) Expected: 01/07/2025 (Approximate), Expires: 01/07/2026[facility] Work Phone: comment on above:Expected: 01/07/2025 (Approximate), Expires: 01/07/2026Start: 01-07-2025 End: 60-72-0555Xhupdkfmbzfmc levelLevetiracetam level Lab Routine Seizure ([facility]) Expected: 01/07/2025 (Approximate), Expires: 01/07/2026[facility] Comment on above:Expected: 01/07/2025 (Approximate), Expires: 01/07/2026Start: 01-07-2025 End: 81-27-4366Pfiiameban test (VNG)Vestibular test (VNG) Neurology Routine Dizziness Expected: 01/07/2025 (Approximate), Expires: 01/07/2026[facility] Comment on above:Expected: 01/07/2025 (Approximate), Expires: 01/07/2026Start: 48-45-5611Zblgflcz identified in Urine by CultureUrine St. Rita's Hospitaltart: 60-84-1558Yjvrr [facility] Start: 11-29-2024 End: 34-32-6275Jaqedev encounter lpgaqrrja86/27/2025 11:00 AM EDT [facility] [address] [place] [address] Kulwant Hodge MD [address] [place] [address] [facility] ENDOCRIN[facility]YStart: 11-26-2024 End: 69-65-9519XxcchbcymjcnwnxOiwlbtkrmsfercg Sleep Center Routine History of obstructive sleep apnea Migraine without aura and without status migrainosus, not intractable (CMS/HCC) Expected: 11/26/2024 (Approximate), [facility] Work Phone: comment on above:Expected: 11/26/2024 (Approximate), Expires: 11/26/2025Start: 08-31-2024 End: 15-48-0114Xyihe metabolic 2000 panel - Serum or PlasmaBasic Metabolic Panel Lab Routine Ileus (HCC) Generalized abdominal pain Hypokalemia Expected: 08/31, Expires: 08/30/2025on ClickandBuyComment on above:Expected: 08/31/2024, Expires: 08/30/2025Start: 08-31-2024 End: 75-11-5370Umkuonzub [Mass/volume] in Serum or PlasmaMagnesium Lab Routine Ileus (HCC) Generalized abdominal pain Hypokalemia Expected: 08/31/2024, Expir es: 08/30/2025on ClickandBuyComment on above:Expected: 08/31/2024, Expires: 08/30/2025Start: 08-17-2024 End: 99-66-1467Yenjbzizve exam swallow function contrast studyFL MODIFIED BARIUM SWALLOW W VIDEO Imaging Routine Other dysphagia Expected: 08/17/2024, Expires: 08/17/2025on [facility] HospitalComment on above:Expected: 08/17/2024, Expires: 08/17/2025Start: 08-17-2024 End: 10-50-4973Ywn transoral biopsy single/multipleESOPHAGOGASTRODUODENOSCOPY BIOPSY Other dysphagia 08/17/2024 12:58 PM [facility] Start: 07-13-2024 End: 40-11-0877Sikaetx encounter procedureNOMS ENDOCRINOLOGYComment on above: ArrivedStart: 96-52-4708Uwgfqyes vaccine (2 of 2)Shingles vaccine (2 of 2)Bon [facility] HospitalStart: 06-20-2024 End: 42-42-6590Ukhsc metabolic 1998 panel - Serum or PlasmaBasic metabolic panel Lab Routine Hypoglycemia Expected: 06/20/2024 (Approximate), Expires: 06/20/20 25[facility] HealthcareComment on above:Expected: 06/20/2024 (Approximate), Expires: 06/20/2025Start: 06-20-2024 End: 06-20-2025 peptide [Mass/volume] in Serum or Plasma --fastingC PEPTIDE FASTING Lab Routine Hypoglycemia Expected: 06/20/2024 (Approximate), Expires: 06/20/2025[facility] Work Phone: Comment on above:Expected: 06/20/2024 (Approximate), Expires: 06/20/2025Start: 06-20-2024 End: 90-94-2397Jplaqic function 2000 panel - Serum or PlasmaHepatic function panel Lab Routine Hypoglycemia Expected: 06/20/2024 (Approximate), Expires: 06/20/2025[facility] HealthcareComment on above:Expected: 06/20/2024 (Approximate), Expires: 06/20/2025Start: 06-20-2024 End: 78-33-1667Fdsxyol, fastingInsulin, fasting Lab Routine Hypoglycemia Expected: 06/20/2024 (Approximate), Expires: 06/20/2025[facility] HealthcareComment on above:Expected: 06/20/2024 (Approximate), Expires: 06/20/2025Start: 06-20-2024 End: 62-60-3281Hfthdjn-like growth factor 2Insulin-like growth factor 2 Lab Routine Hypoglycemia Expected: 06/20/2024 (Approximate), Expires: 06/20/2025[facility] HealthcareComment on above:Expected: 06/20/2024 (Approximate), Expires: 06/20/2025Start: 06-20-2024 End: 87-28-7838VsraavdmyyFfhsfvruek Lab Routine Hypoglycemia Expected: 06/20/2024 (Approximate), Expires: 06/20/2025[facility] HealthcareComment on above: Expected: 06/20/2024 (Approximate), Expires: 06/20/2025Start: 05-11-2024 [facility] Hospitaltart: 85-40-3119UXPEA-19 Vaccine ( season)COVID-19 Vaccine ( season)Bon [facility] HospitalStart: 97-07-7299HDNGI-19 Vaccine ( season)COVID-19 Vaccine ( season)[facility]Start: 21-94-5217Opxsbpeyz vaccinationInfluenza Vaccine (#1)[facility] InstituteStart: 97-32-7233Bybkedsuc vaccinationFlu vaccine (#1)Critical access hospitalart: 39-57-0304Quqbq-19 Vaccine ( season)Covid-19 Vaccine ( season)[facility]: 05-06-2023 Influenza vaccinationChillicothe VA Medical Centertart: 53-84-3617ZZPGKXEQVV ASSESSMENT DEPRESSION ASSESSMENTChillicothe VA Medical Centertart: 98-44-2450YNELM-19 VACCINE (4 - Pfizer series)COVID-19 VACCINE (4 - Pfizer series)[facility] Cent[facility]art: 63-64-7253Ekjjnijljelo 50+ years Vaccine (1 of 1 - PCV)Pneumococcal 50+ years Vaccine (1 of 1 - PCV)Bon [facility] HospitalStart: 83-56-1399JDCAGYXY VACCINE (1 of 2)SHINGRIX VACCINE (1 of 2)[facility] Centertart: 00-12-7253QYYTCDQAN (FIT-DNA)COLOGUARD (FIT-DNA)[facility] Centertart: 33-55-0670Zhhoooumubp COLONOSCOPYChillicothe VA Medical Centertart: 79-23-4348ECMNCDKCVZ CANCER SCREENING COLORECTAL CANCER SCREENINGChillicothe VA Medical Centertart: 03-75-5822NK COLONOGRAPHYCT COLONOGRAPHYChillicothe VA Medical Centertart: 67-31-9140ILWEAFFM SCREENDIABETES SCREEN [facility] Centertart: 11-79-3638Kkszsaoh ScreeningDiabetes ScreeningChillicothe VA Medical Centertart: 40-48-2432WWRVT OCCULT BLOODFECAL OCCULT BLOODUniversity Hospitals Portage [facility] Start: 22-90-5203Ymuxl 1996 panel - Serum or PlasmaLipid ScreeningChillicothe VA Medical Centertart: 06-82-4623BYLOQ SCREENLIPID SCREENChillicothe VA Medical Centertart: 2015 Screening for malignant neoplasm of colonBon [facility] HospitalStart: 96-95-5215JYXBEDNBQKINFMXQSDLKODYMPTCqrfrmiet ClinicStart: 27-08-0593Xjpdt panel LipidsBon [facility] HospitalStart: 32-86-0422MovtmfbpyraNvfojatww ClinicStart: 30-00-5898Jkuhuissa for malignant neoplasm of breastNOMS HealthcareStart: 05-57-5101Ztlqfjqr screenDiabetes screenBon [facility] HospitalStart: 51-70-7247DGC TESTINGHPV TESTINGChillicothe VA Medical Centertart: 58-38-0898Kztzucnyn for malignant neoplasm of cervixNOMS HealthcareStart: 07-44-2255AQW TESTINGPAP TESTINGChillicothe VA Medical Centertart: 96-54-3792Lrlfusqnh for malignant neoplasm of cervixPap SmearST. MARK'S HOSPITAL HealthcareStart: 64-05-4509TQuU/Tdap/Td vaccine (1 - Tdap) DTaP/Tdap/Td vaccine (1 - Tdap)[facility]Start: 1989 Hepatitis B vaccine (1 of 3 - 19+ 3-dose series)Hepatitis B vaccine (1 of 3 - 19+ 3-dose series)[facility] access hospitalart: 72-01-3895Oewst microalbumin profileChillicothe VA Medical Centertart: 81-67-7779CJVALROUH C SCREENINGHEPATITIS C SCREENINGChillicothe VA Medical Centertart: 81-38-8364Nacvbbzcq C screeningHepatitis C screenMary [facility] HospitalStart: 69-25-3114KLX SCREENINGHIV SCREENING [facility]ertart: 35-90-4775PHK screeningHIV screenMary [facility] Hospital Start: 70-82-2656Sfxegmyrxm MonitoringDepression MonitoringBon [facility] HospitalStart: 31-90-3624Bszgnnlxbo ScreenDepression ScreenMary Washington HospitalStart: 38-90-3718KOMTG-19 VACCINE (#1)COVID-19 VACCINE (#1)[facility]: 67-53-8733AJNBLOYSI B (1 of 3 - 3-dose series)HEPATITIS B (1 of 3 - 3-dose series)[facility]: 85-73-4361Ixyvuqxes B Vaccine (1 of 3 - 3- dose series)Hepatitis B Vaccine (1 of 3 - 3-dose series)[facility]: 59-47-1783Btfddkgsm for malignant neoplasm of [facility] End: 71-56-3440Ydcnu Metabolic Panel w/ Reflex to MGBasic Metabolic Panel w/ Reflex to MG Lab Routine Daily for 3 Weeks starting 08/29/2024 until 09/18/2024, 2 completedMary [facility] HospitalComment on above:Daily for 3 Weeks starting 08/29/2024 until 09/18/2024, 2 completed End: 49-79-1395WKU W Auto Differential panel - BloodCBC with Auto Differential Lab Routine Daily for 3 Weeks starting 08/29/2024 until 09/18/2024, 2 completed [facility]Comment [facility] above:Daily for 3 Weeks starting 08/29/2024 until 09/18/2024, 2 completed End: 86-57-9647NHW - THERAPEUTIC, EUS, OR TUBE INTERVENTIONSEGD - THERAPEUTIC, EUS, OR TUBE INTERVENTIONS Endoscopy Routine Gastroparesis 1 Occurrences starting 07/29/2023 until 07/29/2024[facility] [place] Work Phone: Comment on above:1 Occurrences starting 07/29/2023 until 07/29/2024 End: 22-02-0419Aeawyzxjtf motility study w/interp&rptMANOMETRY ESOPHAGEAL Endoscopy Routine Nausea 1 Occurrences starting 05/16/2023 until 05/16/2024 [facility] Work Phone: Comment on above:1 Occurrences starting 05/16/2023 until 05/16/2024Esophageal motility study w/interp&rptMANOMETRY ESOPHAGEAL Endoscopy Routine Nausea 05/25/2023[facility] [place] Work Phone: End: 16-28-7762Womwigb emptying imaging studyNM GASTRIC EMPTYING SOLID Radiology Routine Nausea 1 Occurrences starting 05/16/2023 until 06/14/2024[facility] [place] Work Phone: Comment on above:1 Occurrences starting 05/16/2023 until 06/14/2024Glucose [Mass/volume] in Serum or PlasmaPOCT glucose Point of Care Testing Routine 4X Daily until discontinued starting 08/28/2024on ClickandBuyComment on above:4X Daily until discontinued starting 08/28/2024 Oxygen therapy [Minimum Data Set]Initiate Oxygen Therapy Protocol Respiratory Care Routine As Needed until discontinued starting 08/17/2024 [employer] Work Phone: Comment on above:As Needed until discontinued starting 08/17/2024Oxygen therapy [Minimum Data Set]Initiate Oxygen Therapy Protocol Respiratory Care Routine As Needed until discontinued starting 08/28/2024 [employer] Work Phone: Comment on above:As Needed until discontinued starting 08/28/2024at[facility] Work Phone: [facility] referralK[facility] Work Phone: [facility]YE[facility] Work Phone: Comment on above:Release Upon Ordering for 1 Occurrences starting 07/14/2023, 1 completedCommunity Health Immunizations Immunization DateImmunizationNotesCare LixdzivcDerciofo01-90-9871owtvpu vaccine recombinantMuhammad Binh [phone]-FjrskClinton [facility] Rzouuf98-59-7119 zoster vaccine Wang Hodge MD Work Phone: [place] [address]Maxnvaotcj95-90-8286DKUC-ZoG-7 (COVID-19) mRNAMUL.ORD!c95142Vmqedg Orzech [facility] [place] 035210-05-2022influenpark bradshaw, Julio Hodge MD Work Phone: [facility] HospitalMqmevboftr59-87-7566srrjxnndf virus vaccine, unspecified formulationNurse 2 Work Phone: [facility]07-14-2022SARS-CoV-2 mRNA (ygbxbdldtdm-rnfl-brqlotc) vaccineMaher SALAM [phone]-HmadzClinton Memorial Hospital [facility] Qmrxne08-83-1933 SARS-CoV-2 (COVID-19) mRNA BNT-162b2 vaxMaher SALAM [phone]-OzpqwClinton Memorial Hospital [facility] Ucphkt12-81-2618 influenza virus vaccine, unspecified formulationJENNBRENNEN ABAD [facility] [id number]-NjO-5 (COVID-19) mRNA BNT-162b2 vax ROHINI ABAD [facility] [id number]-ZxQ-3 (COVID-19) mRNA BNT-162b2 vaxMaher SALAM 249-4266Lnddtl-YswawClinton Memorial Hospital Digestive HealthComment on above:Result Comment: 2022-07-21: OZY79KDJKYDE: Highlighted row has not occurred!42-32-0078fuuwzmhhh virus vaccine, unspecified formulationMonique Marquez [phone]-SljylClinton [facility] Health Payers DatePayer CategoryPayerPolicy [id number] CenterBS [id number] BLUE ACCESS PPO [id number] 2022- [phone] [address] [place] [address] [id number] Health [id number] Health Insurance 1.2.840.320819.1.13.159.2.7.3.163[id number] 2.0.1.987517.3.57[id number] 2.840.1.456190.3.579.2.34904-06-4619Liczjgk1922557 2.840.1.136892.3.579.2.29654-96-2867Tmpcfjl2902978 2.16840.1.600661.3.57[id number] 2.16840.1.031699.3.579.2.70949-85-8088Ypdgnyo0146461 2.16840.1.563797.3.579.2.35722-01-7776Enwbciv7240586 2.16840.1.913612.3.579.2.93681-84-2341Ejpiesl8304581 2.16.840.1.276550.3.579.2.96797-85-9157Ijhvxku5317981 2.16.840.1.848807.3.579.2.54786-18-2617Ucivqaz7125426 2.16.840.1.703283.3.579.2.09244-54-7335Breulno2657332 2.16.840.1.038996.3.579.2.37925-46-8662Rtiqlwj1419418 2.16.840.1.196933.3.579.2.26314-77-6361Dxeahlx6755474 2.16.840.1.092537.3.579.2.20698-46-7988Npwibnj4894886 2.16840.1.294813.3.579.2.66167-59-8509Usvvdek5673363 2.840.1.541421.3.579.2.33083-03-0267Cpbgiiv6491587 2.16840.1.091482.3.579.2.51517-69-1073Jdufuec2977035 2.16840.1.004097.3.579.2.83974-49-1886Frneyle3400779 2.16840.1.969883.3.579.2.41957-52-5137Ixmfqfl9363241 2.16840.1.092944.3.579.2.07408-89-8045Gfnxgtn0690055 2.16.840.1.490813.3.579.2.04937-56-7762Rznmuob4065431 2.16840.1.805610.3.579.2.83922-17-8943Rrtwbhq945543703 2.16840.1.494978.3.579.2.01329-52-7213Mqtnfcg115563075 2.16840.1.016579.3.579.2.27790-38-9248Egpfnyl41561419 2.16840.1.647723.3.579.2.739866-39-0917Bgfvtpo61822794 2.16840.1.817627.3.579.2.773934-61-5503Qhqjuvv90048594 2.840.1.690855.3.579.2.361243-99-2628Aoxtndc88984047 2.840.1.008677.3.579.2.346640-99-6474Zfxlbhv85937347 2.840.1.592287.3.579.2.83380-94-7058Vengcqm17255379 2.0.1.115642.3.579.2.97676-43-0122Bovemvf94195794 2.0.1.580263.3.579.2.70505-24-1812Vzfbzbu23507827 2.0.1.406487.3.579.2.35254-77-6159Xanxbrv42328166 2.0.1.902277.3.579.2.07232-16-8206Lvgxrxx02907743 2.0.1.456185.3.579.2.77428-82-2851Jitpsdd27512167 2.840.1.557457.3.579.2.32645-02-1973Patnurm3909862 2.840.1.814501.3.579.2.913847-49-8818Ddhofdm5800228 2.840.1.126570.3.579.2.717724-62-4845Hbdzhhm1574125 2.840.1.200013.3.579.2.481449-25-8404Ynlvdsq9889351 2.16.840.1.668374.3.579.2.669106-96-4314Dxrexwx64504904 2.16.840.1.468304.3.579.2.54875-50-1067Fluaznr256293117 2.16.840.1.850243.3.579.2.98167-60-8646Ssgfxsu36024794 2.16.840.1.867673.3.579.2.22434-05-8349Vxvpwiv79084800 2.16.840.1.447050.3.579.2.06107-96-9926Exvokyl79134273 2.16.840.1.576868.3.579.2.60382-31-5021Wyrvxcn11481231 2.0.1.853031.3.579.2.86273-98-4304Efuongw57240658 2.16.840.1.013006.3.579.2.09947-71-3932Dqjnzza48307728 2.16.840.1.489490.3.579.2.43736-56-1605Phsosrt67204490 2.0.1.941391.3.579.2.70031-22-0150Isjrrsw03611788 2.840.1.470496.3.579.2.42132-70-1337Ceufqek20180566 2.840.1.192178.3.579.2.96628-60-5570Yelrqid71584173 2.16840.1.200472.3.579.2.727 [id number]-bqk 603p596u-96fl-7605-603n-u309c4d01i3l11-15-7052WpyxlczGHG524K5183349-09-4774 UnknownVHS0[id number] 2.16.840.1.773312.3.579.2.832Bvlvyck47991707 2.16.840.1.775879.3.579.2.531 Kfhulus77913014 2.16.840.1.902819.3.579.2.531Worker's CompensationIndustrial Self Ins [id number] Social History DateTypeDetailFacilityStart: 12-03-2021 End: 72-28-5379Lxozuqn smoking statusEx-smoker (finding)[facility] Start: 08-12-2020 End: 30-54-6911Xaw Assigned At [facility] Tobacco smoking statusNeverClinton Memorial Hospital [facility] Start: 30-75-6255Mab Assigned At [facility] End: 52-64-4853Ewiwrji of tobacco useCurrent smokerUniversity Hospitals Portage Medical Center Work Phone: End: 81-99-5455Dxnofya of tobacco useCigarette SmokerUniversity Hospitals Portage Medical Center Work Phone: Start: 04-28-2018 End: 78-47-0731Osyihcu use and exposureSmokeless tobacco non-userUniversity Hospitals Portage Medical Center Work Phone: Start: 04-28-2018 End: 14-89-1752Olyfufo intakeCurrent drinker of alcohol (finding)[facility]: 08-12-2020 End: 68-82-0721Mzlblmv of Social functionChillicothe VA Medical Centertart: 04-28-2018 End: 70-15-0623Isxpnpt Commenthusband still smokesCleveland ClinicStart: 41-75-0400Getwnzk CommentsocialCh[facility]othe VA Medical Centertart: 03-03-6234Doq Assigned At BirthNot on fileCortez ClinicStart: 16-72-4834Eahzdtf intakeEx-drinker (finding)[facility]: 99-40-2252Ozmcqba smoking status NHISNever smoked tobaccoNOHI HealthcareStart: 07-13-2024 End: 32-58-9146Xkehfekre beverage intakeLifetime non-drinker (finding)[facility] HealthcareStart: 24-40-6840Uhaeopp CommentRareMayo Clinic Arizona ([place]) ClickandBuyHas the [employer], gas, oil, or water [employer] threatened to shut off services in your home in past 12MoNoBon ClickandBuyHow often to you have a drink containing alcohol?[facility] Click[employer](I/We) worried whether (my/our) food would run out before (I/we) got money to buy more.Never trueBon ClickandBuyStart: 05-15-2015 End: 71-17-3088WrgPgvsaw (finding)[facility] Goals DatePatient GoalDesired Activity/State Functional Status RermUbhgeysvplJrjhrgMxodlybx11-91-0300Jjncpgowpt StatusN/[facility]02-14-2025Functional StatusMemorial Health System [facility]06-13-2024 Functional StatusN/AExec[facility] [place] 22-43-9811Bqtjjhbbdz StatusN/[facility]11-17-2022Functional StatusN/[facility] Ufgzfa51-53-8990Fuvzxmjkrv Status N/[facility] Clinical Notes 12-02-2021 to 06-11-2025 Note Date & BbcrFyxyTjdbhlzh62-49-8510 NotePatient Education Custom Cystoscopy with Urethral Dilation ??? Voiding after the procedure: there may be some pain, urethral bleeding, burning, urgency, frequency and blood tinged urine following the procedure. These symptoms usually resolve within 2-5 days.Drink the amount of fluid it takes to [...] if you have a fever over 100 degreesFisher R Adams [facility] 06-11-2025 NoteHistory and Physical Patient: CONSTANTINO CARDOSO Age: 55 [...] list: All Problems Heartburn / SNOMED CT 24898229 / Confirmed Gallstone / SNOMED CT 333941958 / Confirmed Kidney stones / SNOMED CT 319017630 / Confirmed Seizures / SNOMED CT 992880274 / Confirmed Migraines / SNOMED CT 67259067 / Confirmed Arthritis / SNOMED CT 5062307 / Confirmed Hernia, hiatal / SNOMED CT 358024098 / Confirmed High blood pressure / SNOMED CT 9942344165 / Confirmed BMI 26.0-26.9,adult / SNOMED CT 8857786492 / Confirmed Urinary urgency / SNOMED CT 267187018 / Confirmed Hx of urinary tract infection / SNOMED CT 5051194444 / Confirmed Other post-traumatic urethral stricture, female / SNOMED CT 035485721 / Confirmed Proteinuria / SNOMED CT 73559172 / Confirmed Gastric bezoar / SNOMED CT 696329526 / Confirmed Gastroparesis / SNOMED CT 114050579 / Confirmed Diarrhea / SNOMED CT 133831522 / Confirmed Epigastric pain / SNOMED CT 662206861 / Confirmed Foreign body in stomach, sequela / SNOMED CT 788570069 / Confirmed 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 Nausea and vomiting / SNOMED CT 49609002 / Confirmed Acid reflux / SNOMED CT 791321593 / Confirmed Irregular bowel habits / SNOMED CT 1994917970 / Confirmed Constipation / SNOMED CT 46072723 / Confirmed Nausea / SNOMED CT 8271817505 / Confirmed Stomach pain / SNOMED CT 981923628 / Confirmed Back pain / SNOMED CT 655565651 / Confirmed Hard stool / SNOMED CT 246366538 / Confirmed Dark stools / SNOMED CT 89742570 / Confirmed Asymptomatic microscopic hematuria / SNOMED CT 6313124554 / Confirmed Recurrent UTI / SNOMED CT 378120259 / Confirmed Mixed incontinence urge and stress / SNOMED CT 11723061 / Confirmed Lower abdominal pain / SNOMED CT 35295768 / Confirmed Dysphagia / SNOMED CT 79079031 / Confirmed Globus sensation / SNOMED CT 464494514 / Confirmed Change in bowel habits / SNOMED CT 347855513 / Confirmed Early satiety / SNOMED CT 0538453255 / Confirmed Complex renal cyst / SNOMED CT 4637799346 / Confirmed Colon polyps / SNOMED CT 618689443 / Confirmed Resolved: Mitral valve prolapse / SNOMED CT 2366971598 Canceled: Gastric bezoar / SNOMED CT 346128335 Histories Family History: Diabetes mellitus type 1 Grandparent Crohn's disease Sister Grandparent Procedure history: Esophagogastroduodenoscopy ([id number]) on 01/11/2022 at 51 Years. Esophagogastroduodenoscopy (435330282) on 05/13/2021 at 50 Years. Esophagogastroduodenoscopy (234316052) on 09/30/2020 at 50 Years. Colonoscopy ([id number]) on 03/13/2020 at 49 Years. Esophagogastroduodenoscopy (305850230) on 01/30/2020 at 49 Years. Esophagogastroduodenoscopy (303012735) on 05/17/2019 at 48 Years. Colonoscopy ([id number]) on 05/17/2019 at 48 Years. Hernia surgical mesh (6625825571) on 03/02/2019 at 48 Years. Comments: 01/13/2020 22:[address] in [place]. Cholecystectomy (23337391). Hernia repair (44380457). Hysterectomy (307361157). Social History Social & Psychosocia (more content not included)...[facility] Comment on above:Result Comment: Electronically Signed By: SUYAPA BAKER, Flavio Carvalho.kenneth\Date and Time Signed: 06/11/25 08:25 [id number] Hospital Discharge instructions Patient Education 04/08/2025 12:50:25 Urethral Dilation Urethral Dilation Urethral dilation is a procedure to stretch open (dilate) the urethra. The urethra is the tube thatdrains pee (urine) from the bladder out of the body. In females, the urethra opens above the vaginal opening. In males, the urethra opens at the tip of the penis. Urethral dilation is usually done to treat narrowing of the urethra (urethral stricture), which canmake it difficult to pee (urinate). Urethral strictures [...] including vitamins, herbs, eye drops, creams, and kxaf-cpz-lkgfckm medicines. Any problems you or family members [...] These include any diabetes medicines or blood thinnersyou take. Taking medicines such as aspirin and ibuprofen. These medicines can thin your blood. Do not take them unless your provider tells you to. Taking fwrc-nsj-woyttma medicines, vitamins, herbs, and supplements. General instructions [...] Follow these instructions at home: Medicines Take yhvk-pps-aljmrgt and prescription medicines only as told by [...] actions to prevent or treat constipation: ?Take xcrh-lun-ixvqyti or prescription medicines. ?Eat foods that are [...] provider. Document Revised: 06/16/2023 Document Reviewed: 06/16/2023 [facility] Patient Education 2023 Social[employer]305. Follow Up Care 03/27/2025 14:50:55 With:SUYAPA BAKER, Flavio Hairston, URL Address: [facility] [address], [place] [address] [id number] When: Unknown Comments:sched cysto/UD, 6 mos w/ MRI [facility] 08-04-2025 NotePatient Education Urology Urethral Dilation Urethral dilation is a procedure to stretch open (dilate) the urethra. The urethra is the tube thatdrains pee (urine) from the bladder out of the body. In females, the urethra opens above the vaginal opening. In males, the urethra opens at the tip of the penis. Urethral dilation is usually done to treat narrowing of the urethra (urethral stricture), which canmake it difficult to pee (urinate). Urethral strictures [...] including vitamins, herbs, eye drops, creams, and aacd-lgi-oekjbzn medicines. ??? Any problems you or family [...] your provider tells you to. ??? Taking cphp-syz-supybfw medicines, vitamins, herbs, and supplements. General instructions [...] these instructions at home: Medicines ??? Take bzmr-kzz-gesswtq and prescription medicines only as told by [...] to prevent or treat constipation: ? Take qwky-vzo-kvqdyut or prescription medicines. ? Eat foods that [...] a soft tube (catheter) (more content not included)...[facility]07-31-2025 NoteProgress Note-Physician Patient: CONSTANTINO CARDOSO Age: 54 years Sex: Female : 1970 Associated Diagnoses: None Author: Luis Li Jr, DO Postoperative Information Postoperative disposition: Postoperative disposition: To PACU. Optimetrix number: Optimetrix number [id number]. Anesthetic utilized: General. Health Status Allergies: Allergic [...] Discharge when meets criteria ( To home ).[facility]Comment on above:Result Comment: Electronically Signed By: Luis Li Jr, DO\.br\Date and Time Signed: 04/04/25 15:20 EDT 04-04-2025 NoteProgress Note-Physician Patient: CONSTANTINO CARDOSO Age: 54 years Sex: [...] All Problems Urinary urgency / SNOMED CT 108838646 / Confirmed Other post-traumatic urethral stricture, female / SNOMED CT 876923091 / Confirmed Stomach pain / SNOMED CT 522919573 / Confirmed Seizures / SNOMED CT 188873158 / Confirmed Recurrent UTI / SNOMED CT 818024024 / Confirmed Proteinuria / SNOMED CT 64287870 / Confirmed Nausea and vomiting / SNOMED CT 17436206 / Confirmed Nausea / SNOMED CT 4165034819 / Confirmed Migraines / SNOMED CT 22509461 / Confirmed Lower abdominal pain / SNOMED CT 94189223 / Confirmed Kidney stones / SNOMED CT 045775037 / Confirmed Irregular bowel habits / SNOMED CT 1552866722 / Confirmed Mixed incontinence urge and stress / SNOMED CT 67392709 / Confirmed High blood pressure / SNOMED CT 5470646020 / Confirmed Hx of urinary tract infection / SNOMED CT 2766854903 / Confirmed Hernia, hiatal / SNOMED CT 751324539 / Confirmed Heartburn / SNOMED CT 93230258 / Confirmed Hard stool / SNOMED CT 835790869 / Confirmed Gastroparesis / SNOMED CT 834055799 / Confirmed Acid reflux / SNOMED CT 258783606 / Confirmed Gallstone / SNOMED CT 696425483 / Confirmed Foreign body in stomach, sequela / SNOMED CT 763511408 / Confirmed Globus sensation / SNOMED CT 604054158 / Confirmed Epigastric pain / SNOMED CT 739598046 / Confirmed Early satiety / SNOMED CT 0133363785 / Confirmed Dysphagia / SNOMED CT 33743746 / Confirmed Diarrhea / SNOMED CT 331515485 / Confirmed Dark stools / SNOMED CT 85909590 / Confirmed Constipation / SNOMED CT 63203718 / Confirmed BMI 26.0-26.9,adult / SNOMED CT 4021630197 / Confirmed Gastric bezoar / SNOMED CT 579274711 / Confirmed 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 Esophagogastroduodenoscopy ([id number]) on 05/13/2021 at 50 Years. Esophagogastroduodenoscopy ([id number]) on 09/30/2020 at 50 Years. Colonoscopy ([id number]) on 03/13/2020 at 49 Years. Esophagogastroduodenoscopy ([id number]) on 01/30/2020 at 49 Years. Esophagogastroduodenoscopy ([id number]) on 05/17/2019 at 48 Years. Colonoscopy ([id number]) on 05/17/2019 at 48 Years. Hernia surgical mesh ([id number]) on 03/02/2019 at 48 Years. Comments: 01/13/2020 22:12 ASTRIDT - Nina M[address] Dr[address] in [place]. Cholecystectomy ([id number]). Hernia repair (51596178). Hysterectomy ([id number]). Social History Social & Psychosocial Habits Alcohol Comment: occasionally - 05/10/2019 10:00 - Tyrell Salesperson Women'S DressesCarlota Beard 03/27/2025 Risk Assessment: Denies Alcohol Use Comment: den - 09/08/2019 17:28 - Clara Sebastian RN Comment: densimon - 09/20/2020 16:07 - Carlota Tinoco RN 03/27/2025 Use: Never Comment: densimon - 11/06/2020 07:58 - Kiersten Brody Other Comment: Caffeine- 1-2 cups daily - 05/10/2019 10:00 - Tyrell Salesperson Women'S DressesCarlota Substance Abuse 03/27/2025 Risk Assessment: Denies Substance Abuse Comment: densimon - 09/08/2019 17:27 - Clara Sebastian RN Comment: denies - 09/20/2020 16:08 - Carlota Tinoco RN 03/27/2025 Use: Never Comment: davidsimon - 11/06/2020 07:58 - Kiersten Brody Tobacco 03/27/2025 Risk Assessment: Denies Tobacco Use 03/27/2025 Tobacco Use: Former smoker, quit more Smokeless tobacco use: Never Comment: quit 7 years ago - 09/08/2019 17:27 - Clara Sebastian RN 03/27/2025 Tobacco Use: Former smoker, quit more Comment: denies - 09/20/2020 16:08 - Carlota Tinoco RN 03/27/2025 Tobacco Use: Former smoker, quit more (more content not included)...[facility]:Result Comment: Electronically Signed By: Luis Li Jr, DO\.br\Date and Time Signed: 04/04/25 13:45 [id number] NotePatient Education - Text Endoscopy Care After Procedure [...] any machinery for 24 hours (because of theanesthesia used during the test). NUTRITION ??? Drink [...] 04/05/2005 Document Re-Released: 02/13/2007 ExitCare??? Patient Information ???2009 [employer]. Colonoscopy Care After Surgery Please read the [...] Heavy or fried foods are harder to digestand may make you feel nauseated (sick to [...] including vitamins, herbs, eye drops, creams, and ccvv-wtc-qwrpmmh medicines. ??? Any problems you or family members have had with anesthetic medicines. ??? Any blood disorders you h (more content not included)...[facility]07-29-2025 NoteEndoscopic Procedure Report - Other Patient: CONSTANTINO CARDOSO Age: 54 years Sex: Female : 1970 Associated Diagnoses: None Author: Rambo Purcell MD Pre-Procedure Procedure Date 04/02/2025 13:12:00 . Procedure Type: Colonoscopy with removal of tumor(s), polyp(s), or other lesion(s) by snare technique, biopsy. Procedure provider Performed by Rambo Purcell MD. Current history and physical Reviewed. Esophagogastroduodenoscopy ([id number]) on 01/11/2022 at 51 Years. Esophagogastroduodenoscopy ([id number]) on 05/13/2021 at 50 Years. Esophagogastroduodenoscopy ([id number]) on 09/30/2020 at 50 Years. Colonoscopy ([id number]) on 03/13/2020 at 49 Years. Esophagogastroduodenoscopy ([id number]) on 01/30/2020 at 49 Years. Esophagogastroduodenoscopy ([id number]) on 05/17/2019 at 48 Years. Colonoscopy ([id number]) on 05/17/2019 at 48 Years. Hernia surgical mesh ([id number]) on 03/02/2019 at 48 Years. Comments: 01/13/2020 22:[address] in [place]. Cholecystectomy ([id number]). Hernia repair (24159256). Hysterectomy ([id number]).. Past Medical History Resolved Mitral valve prolapse (2678874065): Resolved.. Family History Diabetes mellitus type 1 Grandparent Crohn's disease Sister Grandparent . Procedure History Esophagogastroduodenoscopy ([id number]) on 01/11/2022 at 51 Years. Esophagogastroduodenoscopy ([id number]) on 05/13/2021 at 50 Years. Esophagogastroduodenoscopy ([id number]) on 09/30/2020 at 50 Years. Colonoscopy ([id number]) on 03/13/2020 at 49 Years. Esophagogastroduodenoscopy ([id number]) on 01/30/2020 at 49 Years. Esophagogastroduodenoscopy ([id number]) on 05/17/2019 at 48 Years. Colonoscopy ([id number]) on 05/17/2019 at 48 Years. Hernia surgical mesh ([id number]) on 03/02/2019 at 48 Years. Comments: 01/13/2020 22:[address] in [place]. Cholecystectomy ([id number]). Hernia repair (88980560). Hysterectomy ([id number]).. Colorectal neoplasm risk assessment Average risk. Informed [...] day(s), # 56 cap(s), Refills(s) 0, Pharmacy: [facility]/pharmacy #[id number], 170, cm, 03/27/25 10:23:00 EDT, Height/Length Dosing, 86.9, kg, 03/27/25 10:23:00 EDT, Weight Dosing Estrace 0.1 mg/g Cream: 1 gm, Vaginal, As Directed, 42.5 gm, Refill(s) 3, Apply pea-sized amount around urethra every night x 3 weeks, then 2 times weekly for maintenance, [facility]/pharmacy #[id number], 170, cm, 02/16/24 9:10:00 EDT, Height/Length Dosing, 81.7, kg, 02/16/24 9:10:00 EDT... Ibgard 90 mg oral delayed release capsule: 180 mg = 2 cap(s), Oral, BID, # 60 cap(s), Refills(s) 3,[id number] 170, cm, 03/27/25 10:23:00 EDT, Height/Length Dosing, 86.9, kg, 03/27/25 10:23:00 EDT, Weight Dosing Keppra 500 mg Tab: 500 mg = 1 tab(s), Oral, BID, # 60 tab(s), Refills(s) 0, Pharmacy: [facility]/pharmacy #[id number], 170.2, cm, 10/19/24 17:25:00 EST, Height/Length Dosing, 90.5, kg, 10/19/24 17:25:00 EST, Weight Dosing Metamucil 3.4 g/5.2 g oral powder: 3.4 gram, Oral, TID, PRN for constipation, # 1,042 gram, Refills(s) 0, [id number], 170, cm, 03/27/25 10:23:00 EDT, Height/Length Dosing, 86.9, kg,03/27/25 10:23:00 EDT, Weight Dosing Multi Vitamins oral tablet: 1 tab(s), Oral, Daily, 30 tab(s), Refill(s) 0, [id number], 170.2, cm, 10/19/24 17:25:00 EST, Height/Length Dosing, 90.5, kg, 10/19/24 17:25:00 EST, Weight Dosing aspirin 81 mg Oral EC Tab: 81 mg = 1 tab(s), Oral, Daily, # 30 tab(s), Refills(s) 0, [id number], 170.2, cm, 10/19/24 17:25:00 EST, Height/Length Dosing, 90.5, kg, 10/19/24 17:25:00 EST, Weight Dosing cyanocobalamin 1000 mcg Tab: 1,000 mcg = 1 tab(s), Oral, Daily, # 30 tab(s), Refills(s) 0, [id number], 170.2, cm, 10/19/24 17:25:00 EST, Height/Length [...] MOUTH BEFORE MEALS A (more content not included)...[facility] HospitalComment on above:Result Comment: Electronically Signed By: Sarmini Rambo BAKER\.br\Date and Time Signed: 04/02/25 13:14 EDTOther Comment: Missing Attachment - attachment storage system not supported [id number] Can be viewed in source system Missing Attachment - attachment storage system not supported [id number] Can be viewed in source systemMissing Attachment - attachment storage system not supported [id number] Can be viewed in source systemMissing Attachment - attachment storage system not supported [id number] Can be viewed in source systemMissing Attachment - attachment storage system not supported [id number] Can be viewed in source systemMissing Attachment - attachment storage system not supported [id number] Can be viewed in source systemMissing Attachment - attachment storage system not supported [id number] Can be viewed in source systemMissing Attachment - attachment storage system not supported [id number] Can be viewed in source system Missing Attachment - attachment storage system not supported [id number] Can be viewed in source systemMissing Attachment - attachment storage system not supported [id number] Can be viewed in source [id number] NoteEndoscopic Procedure Report - Other Patient: CONSTANTINO CARDOSO [...] safety measures. Endoscope type used was an adult- size, introduced orally, advanced to the 3rd portion of the duodenum. No difficulty was encountered during the procedure. Views were excellent. The patient tolerated the procedure well. Extent reached: Duodenum third portion Findings 1. Esophageal landmarks identified, slightly torturous esophagus. 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 Empiric dilation with Lopez 54 Chilean was done, no resistance, post dilation there was no mucosal disruption or wall defect 2. Mild atrophy in the mucosa in the antrum of the stomach, otherwise normal examined stomach. Random biopsies were taken to rule H. pylori 3. Normal examined duodenum Images Procedure images: Rec1_hd_video_2024___05_[id number].jpg Rec1_hd_video_2024__T12_05_43_[id number].jpg Rec1_hd_video_2024__T12_05_39_208.jpg Rec1_hd_video_2024__T1__33_358.jpg Rec1_hd_video_2024__T1__47_553.jpg Rec1_hd_video_2024__T12__23_646.jpg Rec1_hd_video_2024__T12__11_550.jpg . Post-Procedure Complications: none. Estimated blood loss: none. Specimens: sent to pathology. Devices/ implants: none left in place. Impression and Plan 1. Esophageal landmarks identified, slightly torturous esophagus. 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 Empiric dilation with Lopez 54 Chilean was done, no resistance, post dilation there was no mucosal disruption or wall defect 2. Mild atrophy in the mucosa in the antrum of the stomach, otherwise normal examined stomach. Random biopsies were taken to rule H. pylori 3. Normal examined duodenum Recommendations: -Resume previous diet -Resume home medications -Follow-up in GI clinic in GI clinic in 1-2 weeks once pathology is available [facility] HospitalComment on above:Result Comment: Electronically Signed By: Binh BAKER, Rambo Dietrich\.br\Date and Time Signed: 04/02/25 12:57 EDTOther Comment: Missing Attachment - attachment storage system not supported [id number] Can be viewed in source systemMissing Attachment - attachment storage system not supported [id number] Can be viewed instulane university medical centerce systemMissing Attachment - attachment storage system not supported [id number] Can be viewed in source systemMissing Attachment - attachment storage system not supported [id number] Can be viewed in source systemMissing Attachment - attachment storage system not supported [id number] Can be viewed in source systemMissing Attachment - attachment storage system not supported [id number] Can be viewed in source systemMissing Attachment - attachment storage system not supported [id number] Can be viewed in source [id number] NoteHistory and Physical Patient: OCNSTANTINO CARDOSO Age: 54 years Sex: Female : [...] day(s), # 56 cap(s), Refills(s) 0, Pharmacy: [facility]/pharmacy #[id number], 170, cm, 03/27/25 10:23:00 EDT, Height/Length Dosing, 86.9, kg, 03/27/25 10:23:00 EDT, Weight Dosing Estrace 0.1 mg/g Cream: 1 gm, Vaginal, As Directed, 42.5 gm, Refill(s) 3, Apply pea-sized amount around urethra every night x 3 weeks, then 2 times weekly for maintenance, [id number] 170, cm, 02/16/24 9:10:00 EDT, Height/Length Dosing, 81.7, kg, 02/16/24 9:10:00 EDT... Ibgard 90 mg oral delayed release capsule: 180 mg = 2 cap(s), Oral, BID, # 60 cap(s), Refills(s) 3,[id number], 170, cm, 03/27/25 10:23:00 EDT, Height/Length Dosing, 86.9, kg, 03/27/25 10:23:00 EDT, Weight Dosing Keppra 500 mg Tab: 500 mg = 1 tab(s), Oral, BID, # 60 tab(s), Refills(s) 0, [id number], 170.2, cm, 10/19/24 17:25:00 EST, Height/Length Dosing, 90.5, kg, 10/19/24 17:25:00 EST, Weight Dosing Metamucil 3.4 g/5.2 g oral powder: 3.4 gram, Oral, TID, PRN for constipation, # 1,042 gram, Refills(s) 0, [id number], 170, cm, 03/27/25 10:23:00 EDT, Height/Length Dosing, 86.9, kg,03/27/25 10:23:00 EDT, Weight Dosing Multi Vitamins oral tablet: 1 tab(s), Oral, Daily, 30 tab(s), Refill(s) 0, [id number], 170.2, cm, 10/19/24 17:25:00 EST, Height/Length Dosing, 90.5, kg, 10/19/24 17:25:00 EST, Weight Dosing aspirin 81 mg Oral EC Tab: 81 mg = 1 tab(s), Oral, Daily, # 30 tab(s), Refills(s) 0, [id number], 170.2, cm, 10/19/24 17:25:00 EST, Height/Length Dosing, 90.5, kg, 10/19/24 17:25:00 EST, Weight Dosing cyanocobalamin 1000 mcg Tab: 1,000 mcg = 1 tab(s), Oral, Daily, # 30 tab(s), Refills(s) 0, Pharmacy: [facility]/pharmacy #[id number], 170.2, cm, 10/19/24 17:25:00 [...] list: All Problems Heartburn / SNOMED CT 24123234 / Confirmed Gallstone / SNOMED CT 902315218 / Confirmed Kidney stones / SNOMED CT 263614395 / Confirmed Seizures / SNOMED CT 688717432 / Confirmed Migraines / SNOMED CT 45169073 / Confirmed Arthritis / SNOMED CT 2975078 / Confirmed Hernia, hiatal / SNOMED CT 674822547 / Confirmed High blood pressure / SNOMED CT 6597766897 / Confirmed BMI 26.0-26.9,adult / SNOMED CT 6418013045 / Confirmed Urinary urgency / SNOMED CT 967706848 / Confirmed Hx of urinary tract infection (more content not included)...[facility] HospitalComment on above:Result Comment: Electronically Signed By: Binh BAKER, Rambo Dietrich\.br\Date and Time Signed: 04/02/25 12:48 [id number] History of Present illness Narrative* Enedleia Willoughby, VICKY - 03/18/2025 8:45 AM EDT Pre-op Instructions [...] lotion, powder, jewelry, piercings, perfume, makeup, nail belarusian, hair accessories, or hair spray on the day of surgery. Wear loose comfortable clothing. Leave your valuables at home but bring a payment source for any after-surgery prescriptions you plan to fill at [facility]. Bring a storage case for any glasses/contacts. An adult who is responsible for you MUST remain in the hospital and drive you home and should be with you for the first 24 hours after surgery. The Day of Surgery: Arrive at [facility] Surgery Entrance at the time directed by your surgeon and check in at the desk. If you have a living will or healthcare power of estate attorney, please bring a copy. You will be taken to the pre-op holding area where you will be prepared for surgery. A physical assessment will be performed by a nurse practitioner or warehouse traffic supervisor. Your IV will be started and [...] understanding, all questions answered. documented in this encounterBon [place] [id number] Radiology Diagnostic [facility] Main [place] [address] [place] [address] CT Scan Report Signed Patient: Constantino Cardoso MR#: [id number] : 1970 Acct:[id number] Age/Sex: 54 / F ADM Date: 5 Loc: ER Room: Type: [facility] ER Attending Dr: Copies to: Kailey [...] Casey M.D. 03/12/2025 10:20 PM Dictation Location: RADIO-PC-29 Transcribed By: ANDREA 03/12/252219 Dictated By: Surendra Casey MD 03/12/252213 Signed By: 03/12/252219 [facility] Work Phone: [phone] Radiology Diagnostic [facility] Main [place] [address] [place] [address] CT Scan Report Signed Patient: Constantino Cardoso MR#: [id number] : 1970 Acct:[id number] Age/Sex: 54 / F ADM Date: 5 Loc: ER Room: Type: [facility] ER Attending Dr: Copies to: Kailey [...] caliber. Suboptimal timing of the contrast bolus evaluatefor aortic dissection. Cardiomegaly. No pericardial effusion. No [...] Casey M.D. 03/12/2025 10:12 PM Dictation Location[facility] Transcribed By: ANDREA 03/12/252211 Dictated By: Surendra Casey MD 03/12/252199 Signed By: 03/12/252211 [facility] Work Phone: [phone] [facility] Note Reason for [...] Arrhythmia, Hypertension, and NSVT (nonsustained ventricular tachycardia) ([facility]). Surgical History She has a [...] EOMI. NECK: trachea midline (more content not included)...[facility]06-14-2025 Hospital Discharge instructions Follow Up Care 02/16/2025 18:54:04 With:Rambo Purcell Address: [address] [place] [address], [address] [address] [phone] Business (1) When:02/19/2025 20:42:05 With:JUDI YOUSSEF Address: [address] [place] [address]- [phone] Business (1) When:Within 3 Day(s) [facility] 06-14-2025 Evaluation + Plan noteExtracted from:Title: ED NoteAuthor:Prosper Bergman DODate:02/16/25 Dysphagia (R13.10: Dysphagia , unspecified) Gastritis (K29.70: Gastritis, unspecified, without bleeding) Orders: ondansetron, 4 mg = 2 mL, Injection, IV Push, Once, Stop date 02/16/25 19:01:00 EDT, STAT, Start date 02/16/25 19:01:00 EDT, 02/16/25 19:01:00 EDT ondansetron, 4 mg = 1 tab(s), Oral, q6hr, X 3 day(s), # 10 tab(s), Refills(s) 0, Pharmacy: [facility]/pharmacy #[id number], 170.2, cm, 02/16/25 18:59:00 EDT, Height/Length Dosing, 85.2, kg, 02/16/25 18:59:00 EDT,Weight Dosing pantoprazole, 40 mg = 10 mL, Injection, IV Push, Once, Stop date 02/16/25 19:01:00 EDT, STAT, Startdate 02/16/25 19:01:00 EDT, 02/16/25 19:01:00 EDT promethazine 25 mg + Sodium Chloride 0.9% intravenous solution 50 mL, IV Piggyback, Once, Stop date02/16/25 20:04:00 EDT, STAT, Start date 02/16/25 20:04:00 EDT, 153 mL/hr, Infuse over 20 minute(s),02/16/25 20:04:00 EDT Sodium Chloride 0.9% intravenous solution 1,000 mL, 1,000 mL, IV, 1,000 mL/hr, STAT, Start date 02/16/25 19:01:00 EDT, 1 hour(s), Total volume (mL): 1,000, 85.2 kg, 2.01, m2 sucralfate, 1 gram = 10 mL, Oral, QID, # 280 mL, Refills(s) 0, Pharmacy: [id number], 170.2,cm, 02/16/25 18:59:00 EDT, Height/Length Dosing, 85.2, kg, 02/16/25 18:59:00 EDT, Weight Dosing CBC w/ Auto Diff Comprehensive Metabolic Panel eGFR Extra Blue Tube Extra SST Tube Lipase Level XR Chest 2 Views [facility] 05-09-2025 NoteI was informed that the insurance declined treadmill nuclear stress test. Actually I wanted to order only routine treadmill stress test. Therefore I will switch the current order to only regular treadmill stress testUnBar[facility] History of Present illness Narrative* EUN [...] Review Audit Reviewed by Sienna Murray MA (Salesperson Women'S Dresses) on 01/07/25 at 1424 Medication Order Taking? Sig Documenting Provider Last Dose Status acarbose (Precose) 25 MG tablet [id number] Take 1 tablet (25 mg) by mouth in the morning and 1 tablet(25 mg) before bedtime. Kulwant Hodge MD Active aspirin 81 MG EC tablet [id number] Take 81 mg by mouth Daily Historical Provider, Active cholecalciferol (Vitamin D-3) 50 MCG (1999) capsule [id number] Take 1 capsule by mouth Daily Kalee Hodge MD Active dicyclomine (Bentyl) 20 MG tablet [id number] Take 1 tablet by mouth in the morning and 1 tablet in the evening and 1 tablet before bedtime. Kulwant Hodge MD Active hyoscyamine (Anaspaz,Levsin) 0.125 MG tablet [id number] Take 1 tablet by mouth every 6 (six) hours ifneeded Kulwant Hodge MD Active levETIRAcetam (Keppra) 750 MG tablet [id number] Take 1 tablet (750 mg) by mouth in the morning and 1 tablet (750 mg) before bedtime. EUN Ashraf Active lisinopril 20 MG tablet [id number] Take 20 mg by mouth Daily Kulwant Hodge MD Active metoprolol succinate XL (Toprol-XL) 50 MG 24 hr tablet [id number] Take 50 mg by mouth in the morning.Kulwant Hodge MD Active pantoprazole (ProtoNix) 40 MG EC tablet [id number] Take 40 mg by mouth in the morning. Take before meals. Kulwant Hodge MD Active sertraline (Zoloft) 50 MG tablet [id number] Take 50 mg by mouth in the morning. Kulwant Hodge MD Active Patient is here today for follow-up of seizure like activity, stroke like symptoms, and migraine. Gonzalez following the plan of care established by [...] triceps, wrist extensors, wrist extensors, wrist flexor, lozenge maker helper strength 5/5. LUE Strength deltoid, biceps, triceps, wrist extensors, wrist extensors, wrist flexor, lozenge maker helper strength 5/5. RLE Strength illopsoas, quadriceps, tibialis [...] and all orders for this visit: Seizure ([facility]) Patient was [place] [facility] [place] for stroke like symptoms manifested as [...] aura and without status migrainosus, not intractable ([facility]) She was also treated for [...] a moderate stenosis. Testing review [place] [facility] [place]: revealed no acute findings [...] symptoms Nikki Ayoub PA-C documented in this [facility]04-25-2025 NoteBelle[facility] Office Cardiology Clinic Note Reason for [...] no lower extremity edema. (more content not included)...[facility]02-16-2025 NoteDischarge Summary Admission and Discharge Information [...] 20's but no seizure activity in the [id number] and not on med tx. -See above [...] be reviewed and discussed with PCP or fondant cooker MD once the hospital wave soldering machine operator is able to reach him/her.I [...] made to ensure accuracy, however, inadvertently computerized php engineer mistakes may be present. Services Consulted Consult to Neurology - Ordered -- 10/19 (more content not included)...[facility] HospitalComment on above:Result Comment: Electronically Signed By: Guerline WALLS\.br\Date and Time Signed: 10/20/24 16:06 EST\.br\Electronically Co-Signed By: Eliezer Lorenzo DO\.br\Date and Time Co-Signed: 10/21/24 15:34 [id number] Hospital Discharge instructions Patient Education 10/20/2024 15:59:25 Seizure, Adult, Urlt-jw-Btcf Seizure, Adult A seizure is a sudden [...] Follow these instructions at home: Medicines Take yesb-zgw-mmtrfuo and prescription medicines only as told by [...] the [place] ask your local department of [place] when you can drive. Get a lot [...] medicines are used to treat seizures. Take jkud-vqk-nzrzhpr and prescription medicines only astold by your doctor. This information is not intended to replace advice given to you by your health care provider. Make sure you discuss any questions you have with your health care provider. Document Revised: 02/25/2021 Document Reviewed: 02/27/2021 [employer] Patient Education 2023 [email or web address]. 10/20/2024 11:40:02 Vitamin B12 Deficiency, Amdi-ok-Dpym Vitamin B12 Deficiency Vitamin B12 deficiency means [...] provider. Document Revised: 04/16/2022 Document Reviewed: 04/16/2022 [employer] Patient Education 2023 [email or web address]. 10/20/2024 11:40:02 Vitamin D Deficiency, Hujr-vd-Cydq Vitamin D Deficiency Vitamin D deficiency is [...] dietitian for more information. General instructions Take vkeu-yfm-ciuuulu and prescription medicines only as told by [...] provider. Document Revised: 2022 Document Reviewed: 2022 [employer] Patient Education 2023 [email or web address]. 10/20/2024 11:40:02 Vitamin D Test Vitamin D [...] including vitamins, herbs, eye drops, creams, and mxuk-gcz-ugjqlyn medicines. Any bleeding problems you have. Any [...] provider. Document Revised: 2022 Document Reviewed: 2022 [employer] Patient Education 2023 [email or web address]. 10/20/2024 11:40:02 Migraine Headache, Ynjg-hj-Glgs Migraine Headache A migraine headache is a [...] Follow these instructions at home: Medicines Take rhob-xkh-tfxqosq and prescription medicines only as told by [...] for Headache and Migraine Patients (CHAMP): headachemigraine.org [place] Migraine Foundation: americanmigrainefoundation.org National Headache Foundation: headaches.org [...] provider. Document Revised: 04/18/2023 Document Reviewed: 04/18/2023 [employer] Patient Education 2023 [email or web address]. Follow Up Care 10/19/2024 17:04:31 With:JUDI YOUSSEF Address: [address] [place] [phone] Business (1) When:1 to 2 days With:Randy BAKER, REGINALDO Baker Address: [facility] [address] [place] [address]- When:2 to 4 weeks [facility] 02-15-2025 NotePatient Education - Text Gastroenterology [...] provider. Document Revised: 04/16/2022 Document Reviewed: 04/16/2022 [employer] Patient Education ? 2023 [employer] Neurology Seizure, Adult A seizure is [...] liver problems. ??? Conditions (more content not included)...[facility] 10-20-20[facility] Evaluation + Plan noteExtracted from:Title:Consult Note-neurology Author:Diana Stevens RNDate:10/20/24 The patient is a 54-year-old right-handed white [...] treatment of stroke risk factors including hypertension, hyperlipidemia,diabetes mellitus -I recommend the speech therapy assessment -I recommend the physical therapy and occupational therapy assessment -I recommend obtaining an EEG to assess for underlying epileptiform activity which may be contributing to a component of the patient's symptoms. -I recommend DVT prevention with SCD stockings or an equivalent -I counseled the patient on the possible diagnoses, prognosis, evaluation, and treatment options. Ianswered all questions. -I discussed the above recommendations [...] deep vein thrombosis (DVT) prophylaxis (Z79.899: Other manager long term care (current) drug therapy) Abdominal pain (R10.9: Unspecified abdominal pain) Extracted from:Title:Admission H & PAuthor:[facility], ReneeDate:10/19/24 Awaiting med rec for all dx. 1. [...] deep vein thrombosis (DVT) prophylaxis (Z79.899: Other manager long term care (current) drug therapy) -Lovenox, early ambulation Orders: [...] made to ensure accuracy, however, inadvertently computerized php engineer mistakes may be present. Extracted from:Title:ED NoteAuthor:Adam CARLIN, JohnDate:10/19/24 Migraine headache (G43.909: Migraine, unspecified, not intractable, [...] Once, Stop date 10/19/24 18:03:00 EST, STAT, Startdate 10/19/24 18:03:00 EST, 10/19/24 18:03:00 EST ED Physician consult Hospitalist for continued care NIH Stroke Scale [facility] 02-15-2025 NoteInterdisciplinary Note - PT PT Evaluation completed with an AMPA of . Pt was Independent for bed mobility and transfers. Pt was able to ambulate at Mod I level due to right bone pain from a previous fall on ice. Pt performing well this date. No further PT services neededJody Ville [address]-15-2025 NotePatient Education - Text Gastroenterology Vitamin B12 [...] provider. Document Revised: 04/16/2022 Document Reviewed: 04/16/2022 [employer] Patient Education ? 2023 [email or web address]. Neurology Migraine Headache A migraine headache is [...] chest pain (nitrogl (more content not included)... [facility] NoteConsultation Note Chief Complaint stroke Reason [...] light touch on the right. Cerebellar exam: Gnmyby-hq-vhuu reveals no ataxia. Gait is deferred. The neurological exam was performed by a healthcare professional which was witnessed and supervisedby me via video telemedicine visit consented to by the patient or appropriate patient outside sales representative insurance. 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 eyes/lozenge maker helper release hand: Obeys both correctly = 0 [...] reviewed with the patien (more content not included)...[facility] HospitalComment on above:Result Comment: Electronically Signed By: Diana Stevens RN\.br\Date and Time Signed: 10/20/24 07:52 EST\.br\Electronically Co-Signed By: Rush Padilla MD\.br\Date and Time Co-Signed: 10/20/24 10:24 [id number] NoteHistory and Physical Chief Complaint To ED [...] both correctly = 0 Open and close eyes/lozenge maker helper release hand: Obeys both correctly = 0 [...] E12/L Low (10/19/24:06:00) HGB: 11.9 gm/dL Low (10/19/24:06) Hct: 34.6 % (10/19/24:06:00) MCV: 89.5 fL (10/19/24:06:00) MCH: 30.6 pg (10/19/24:06:00) MCHC: 34.2 gm/dL (10/19/24:06:) RDW: 14.1 % (10/19/24:06:00) Platelet: 424 E9/L (10/19/24:06:) MPV: 7.2 fL (10/19/24::) Neutro Auto: 55 % (10/19/24::) Lymph Auto: 33.3 % (10/19/24:06:) [place] Auto: 7.2 % (10/19/24:06) Eos Auto: 3.9 % (10/19/24:) Basophil Auto: 0.6 % (10/19/24:06:) Neutro Absolute: 2.9 E9/L (10/19/24) Lymph Absolute: 1.8 E9/L (10/19/24::) [place] Absolute: 0.4 E9/L (10/19/24:06:) Eos Absolute: 0.2 E9/L (10/19/24:06) Basophil Absolute: 0 E9/L (10/19/24:06:) PT: 10.7 second(s) (10/19/24:06:00) INR: 0.96 (10/19/24:06:00) PTT: 40.8 second(s) High (10/19/24:06:00) Glucose Lvl: 107 mg/dL (10/19/24:06:00) BUN: 22 mg/dL High (10/19/24:06:00) Creatinine: 0.8 mg/dL (10/19/24:06:00) eGFR: 87 mL/min/1.73 m2 (10/19/24 17:06:00) BUN/Creat Ratio: 28 High (10/19/24 17:06:00) Sodium Lvl: 140 mmol/L (10/19/24 17:06:00) Potassium Lvl: 3.4 mmol/L Low (10/19/24 17:06:00) Chloride: 110 mmol/L (10/19/24 17:06:00) CO2: 24 mmol/L (10/19/24 17:06:00) AGAP: 9 mEq/L (10/19/24 17:06:00) Calcium Lvl: [...] 93 mg/dL (10/19/24 17:10:00) POC Device SN: [id number] (10/19/24 17:10:00) POC User ID: [id number] (10/19/24 17:10:00) POC Username: POC Userna (more content not included)...[facility] HospitalComment on above:Result Comment: Electronically Signed By: Guerline BUSTOS\.br\Date and Time Signed: 10/19/24 19:00 EST\.br\Electronically Co- Signed By: Eliezer Lorenzo DO\Date and Time Co-Signed: 10/20/24 06:59 EST 09-17-2024 [...] 08/14/2019 HCT 31.2 (L) (more content not included)...[facility] 08-30-2024 History of Present illness Narrative* [...] lobe infiltrate, which could represent pneumonia. Oliver RomeroDO 08/30/2024, 6:45 AM Attestation signed by Miguel Wild MD I personally evaluated the patient and directed the medical decision making with Resident after thephysical/radiologic exam and laboratory values were reviewed and confirmed. Miguel Wild MD * Sumeet Mayberry PT - 08/29/2024 10:11 AM EST Physical Therapy Facility/Department: [facility] RENAL//MED SURG Physical Therapy Initial Assessment [...] morning. 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 [facility] Internal Medicine Teaching Residency Program Inpatient Daily Progress Note Patient: Constantino Cardoso Date of : 1970 Acct: [id number] Room: [facility]4/0324- Admit date: 08/28/2024 Today's date: 08/29/24 Number [...] Hypertension Gastroparesis and dysphagia - G-POEM at [facility] in 08/27 Mitral valve prolapse GERD Migraines and severe obeisty - s/p Xzey-tk-P-bypass 2018 presents with a chief complaint of [...] morning. 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 She had x-ray KUB and was [...] Problem: Intestinal obstruction (HCC) CT scan at [facility] -dilated large bowel with air-fluid level Transferred to [facility] -x-ray KUB: Nonobstructive bowel gas pattern, [...] Juan Dhaliwal MD Internal Medicine Resident, PGY-1 [facility]; [place], [place] 08/29/2024, 6:54 AM Associated attestation - [...] this chart was generated using voice recognition [employer] dictation software. Although every effort was made to ensure the accuracy of this automated php engineer, some errors in php engineer may have occurred. * Miguel Wild MD [...] which could represent pneumonia. Oliver Romero DO 08/29/2024, 6:34 AM Attestation signed by Miguel Wild MD I personally evaluated the patient and directed the medical decision making with Resident after thephysical/radiologic exam and laboratory values were reviewed and confirmed. Labs stable, abd films OK. Consider trial liquids around tube. Miguel Wild MD documented in this encounterBon [facility] Discharge instructions* Discharge Instructions* Sky [...] sent through Care Everywhere. * Bowel Obstruction (Kuwaiti) documented in this encounterBon [facility]12-[facility] Hospital Discharge instructions* Discharge Instructions* Larisa [...] if your caregiver approves them. Only take njbc-rjt-rqwdgdj or prescription medicines for pain, discomfort, or [...] 08/22/2006 Document Revised: 02/20/2013 Document Reviewed: 12/20/2012 [facility] Patient Information 2013 Spinzo .EGD DISCHARGE INSTRUCTIONS Activity: Rest today. No [...] or neck pain documented in this encounterBon [facility]11-08-2024 History of Present illness Narrative* Kulwant [...] 3 months (around 10/13/2024). documented in this encounterFreeman Cancer [id number] History of Present illness Narrative* Kulwant Hodge [...] 3 weeks (around 07/11/2024). documented in this encounterFreeman Cancer [id number] [facility] Reason for [...] Arrhythmia, Hypertension, and NSVT (nonsustained ventricular tachycardia) ([facility]). Surgical History She has a [...] due to vasovagal r (more content not included)...[facility] 05-11-2024 [facility]* Author Jennie Ayon [facility] CenterAuthoredCentra [facility] General Hospitalervin 2023 9:53os18-qbal-rva female with history of hiatal hernia s/p hiatal hernia repair [...] twice or three times daily if needed. [facility] Work Phone: [phone] 108-493807-15-2024 [facility] Note Reason for [...] valve prolapse, and NSVT (nonsustained ventricular tachycardia) ([facility]). Surgical History She has a [...] hiatal hernia and acid (more content not included)...[facility] 02-16-2024 Evaluation + Plan note Diagnostic Tests Pending * Urine Culture 02/16/24 [facility]12-21-2023 NoteHNO ID: [id number] Author: Ellis Mayberry DO Service: ? Author [...] Successful intubation technique: video laryngoscopy Devices used: [employer] Endotracheal tube insertion site: oral Blade: Jake Blade size: #3 ETT size (mm): 7.0 Measured from: lips Measurement (cm): 22 Placement verified by: chest auscultation and capnometry Cormack-Lehane Classification: grade I - full view of glottis Number of attempts at approach: 1 Airway not difficult SIGNATURE: Ellis Mayberry DO PATIENT NAME: Constantino Cardoso DATE: August 25, 2023 TIME: 2:59 PM CSN: [id number] Health Institute12-21-2023 NoteQ3 Patient Name: Constantino Cardoso Procedure Date: 08/25/2023 2:38 PM Date of : 1970 Admit Type: Outpatient Age: 53 Gender: Female Note Status: Finalized Attending MD: Marques Bradley MD, [id number] Procedure: Upper GI endoscopy Indications: Gastroparesis- for GPOEM Providers: Maqrues Bradley MD, Gavi Bourgeois (Fellow) Patient Profile: [...] the patient. Procedure Code(s): --- Professional --- 79533 Diagnosis Code(s): --- Professional --- K44.9 Z98.890 CPT copyright 2020 [employer]. All rights reserved. Attending Participation: I personally performed the entire procedure. Scope In: 2:59:10 PM Scope Out: 3:37:20 PM MD Marques Rainey MD 08/25/2023 3:41:00 PM This report has been signed electronically by Marques Bradley MD Number of Addenda: 0 Note Initiated On: 08/25/2023 2:38 [facility]11-24-2023 Note HNO ID: [id number] Author: Evelyn Black RN Service: ? Author Type: Registered Nurse Type: Progress Notes Filed: 07/29/2023 11:18 AM Note Text: [facility]11-24-2023 History of Present illness Narrative* Evelyn Black RN - 07/29/2023 11:17 AM EST e documented in this encounterUniversity Hospitals Port[facility] Center11-17-2023 Instructions* Patient Instructions* Americo Montalvo [...] High Protein, Atkins, Boost Glucose Control, Owyn, [place] Breakfast Essentials Light Start mixed with Fairlife fat free or 1% milk. -Check www.bariatricfusion.com or www.unBuzzoola.com for additional options. Take small bites, eat slowly, chew food well, and always eat protein first. Separate eating and drinking by 30 min before and after. Aim for >64 oz water/day. Take small sips and avoid straws. Liquids should be sugar-free, no calories, no carbonation, no caffeine. Protein juarez (vmpeswq5l, Isopure, Gatorade protein), electrolyte drinks (Gatorade or Powerade zero, sugar free liquid IV or Drip Drop), sugar free jello and sugarfree popsicles are also acceptable. Nutrition Monitoring & Evaluation: increase PO intake >75% of estimated needs, weight check and patient update Need for Follow up: based on surgery status documented in this encounterUniversity Hospitals Portage Medical Center11-17-2023 NoteHNO ID: [id number] Author: Americo Montalvo RD Service: ? Author [...] High Protein, Atkins, Boost Glucose Control, Owyn, [place] Breakfast Essentials Light Start mixed with Fairlife fat free or 1% milk. -Check www.bariatricfusion.com or www.[employer].ShareRoot for additional options. Take small bites, eat slowly, chew food well, and always eat protein first. Separate eating and drinking by 30 min before and after. Aim for >64 oz water/day. Take small sips and avoid straws. Liquids should be sugar-free, no calories, no carbonation, no caffeine. 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 Henderson body weight: 159 lbs. 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 Recommendation was a GPOEM. Will consult with surgeon next week regarding next POC for pt. Pt VU. documented in this encounterUniversity Hospitals Portage Medical Center11-17-2023 History of Present illness Narrative* Americo Montalvo, RD - 07/22/2023 1:15 PM EST [facility] Nutrition [...] High Protein, Atkins, Boost Glucose Control, Owyn, [place] Breakfast Essentials Light Start mixed with Fairlife [...] calories, no carbonation, no caffeine. Protein juarez (fdgyhqa6q, Isopure, Gatorade protein), electrolyte drinks (Gatorade or [...] significant for adult onset weight gain (maintains axqsum960 lbs, highest 220 lbs in 2018). 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 Henderson body weight: 159 lbs. 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 Procedure Code(s): --- Professional --- 15250 Diagnosis Code(s): --- Professional --- K44.9 K31.89 Z98.890 R10.13 CPT copyright 2020 [employer]. All rights reserved. Attending Participation: I personally performed the entire procedure. Scope In: 10:40:19 AM Scope Out: 10:50:[address] MD Marques King MD 07/14/2023 10:53:09 AM This report has been signed electronically by Marques Bradley MD Number of Addenda: 0 Note Initiated On: 07/14/2023 10:24 [facility]11-09-2023 Nurse Note* Mónica Spaulding RN [...] RN In Department: GASTROENTEROLOGY documented in this encounterUniversity Hospitals Portage Medical Center11-08-2023 NoteHNO ID: [id number] Author: Arcelia Shaw, PhD Service: ? Author Type: Physician Type: Progress Notes Filed: 07/19/2023 10:07 AM Note Text: [facility] BARIATRIC SURGERY BEHAVIORAL HEALTH EVALUATION DATE OF SERVICE: July 13, 2023 TIME OF SERVICE: 2:10 PM-3:29 PM COST CENTER: [facility] CPT CODE: - 33915 Brief Emotional/Behavioral Assessment with scoring/documentation - [id number] Virtual Psych Diagnostic Eval BILLING CODE: ENDO PSYL MAIN 77544/Marco DATE OF FIRST SERVICE THIS CYCLE: July [...] during the binge episod (more content not included)...[facility]09-22-2023 Miscellaneous Notes* Telephone Encounter - Evelyn Black [...] Pt agreed with plan. documented in this encounterUniversity Hospitals Portage Medical Center09-21-2023 NoteHNO ID: [id number] Author: Nabil Bell RT(R) Service: Nuclear Medicine [...] 715 PATIENT DISCHARGED TO: Ambulatory patient, left [place] department area. A Diagnostic radioactive procedure has taken place, with no further precautions necessary other than routine body substance precautions. More information regarding radiation safety can be found using this link: [email or web address]%[email or web address] SIGNATURE: RT Charmaine(R) PATIENT NAME: Constantino Cardoso DATE: May 26, 2023 TIME: 7:17 AM PAGER/CONTACT #:[facility]09-20-2023 NoteHNO ID: [id number] Author: Pedro Gonzalez LPN Service: ? Author Type: LICENSED NURSE Type: Progress Notes Filed: 05/25/2023 4:15 PM Note Text: Name: Constantino Cardoso [facility]#: [id number] Date: 05/25/2023 ESOPHAGEAL MANOMETRY TEST Indication: Nausea [...] patient tolerated the test without difficulty. .[facility] History of Present illness Narrative* Pedro Gonzalez LPN - 05/25/2023 3:55 PM EDT Name: Constantino Cardoso [facility]#: [id number] Date: 05/25/2023 ESOPHAGEAL MANOMETRY TEST Indication: Nausea [...] difficulty. .Pedro Gonzalez LPN documented in this encounterUniversity Hospitals Portage Medical Center09-11-2023 Miscellaneous Notes* Telephone Encounter - [...] after a gastric bypass. documented in this encounterUniversity Hospitals Portage Medical Center09-01-2023 NoteHNO ID: [id number] Author: Marques Bradley MD Service: ? Author [...] for internal providers or letter via the [employer] for external providers. Chief Complaint: [...] Marques Bradley MD Date: 05/12/2023 Time: 8:15 [facility]08-28-2023 Miscellaneous Notes* Telephone Encounter - Evelyn Black RN - 05/02/2023 9:12 AM EDT BMI SPECIALTY CARE COORDINATION TELEPHONE ENCOUNTER Chief complaint & duration dysphagia. Type of procedure: hernia repair hiatal with Dr. MORTENSEN in [place] February of 2019. Sending OP notes Nursing assessment (subjective/objective) . pain in chest area and getting worse Went to [place] ED March 2023 who told her she needed a stent in her heart..but her c/o were difficulty swallowing and sent pt home and referred her to [facility] and was there in the hospital for [...] appt after records obtained documented in this encounterUniversity Hospitals Portage Medical Center08-22-2023 Miscellaneous Notes* Telephone Encounter - Evelyn Black RN - 04/26/2023 2:00 PM EDT [facility] SPECIALTY CARE COORDINATION TELEPHONE ENCOUNTER Second attempt to contact this pt. Pt has upcoming information, and unable to complete any chart prep, history, symptoms, testing etc. LVM and call back number. documented in this encounterUniversity Hospitals Portage Medical Center08-17-2023 Evaluation note* Encounter Date Diagnosis Assessment Notes Treatment Notes Treatment Clinical Notes Apr, Esophageal dysmotility (ICD-10 - K22.4) Apr,Esophageal spasm (ICD-10 - K22.4) Apr,Nausea & vomiting (ICD-10 - R11.2)Patinet reports that she still has nausea but no vomiting Patient reports that she is to see Dr. Strong at [facility] Patient is to start dicyclomine 20 mg 4 times daily sent to pharm today RTO 6 weeks Apr,ysphagia (ICD-10 - R13.10) [facility] Other 08-14-2023 Miscellaneous Notes* Telephone Encounter - Evelyn Black RN - 04/18/2023 2:13 PM EDT [facility] SPECIALTY CARE COORDINATION TELEPHONE ENCOUNTER Contacted pt regarding a referral from Dr Martinez's office. LVM and call back number. documented in this encounterUniversity Hospitals Portage Medical Center08-03-2023 Miscellaneous Notes* Telephone Encounter - Yancy Lopez - 04/07/2023 1:15 PM EDT Referral rec'd documented in this encounterUniversity Hospitals Portage Medical Center06-17-2023 Evaluation + Plan note Extracted from:Title:ED NoteAuthor:Zabrina Patton DO ADate:02/19/23 Right wrist sprain (S63.501A : Unspecified sprain [...] # 20 tab(s), Refills(s) 0, Pharmacy: [facility]/pharmacy #[id number], 170, cm, 02/19/23 0:56:00 EDT, Height/Length Dosing, 90.2, kg, 02/19/23 0:56:00 EDT, Weight Dosing XR Elbow 3+ Views Right XR Wrist 3+ Views Right [facility]06-17-2023 Hospital Discharge instructions Patient Education [...] are safe for you. General instructions Take eqdf-zfa-tfrmsqh and prescription medicines only as told by [...] provider. Document Revised: 12/29/2020 Document Reviewed: 12/29/2020 [facility] [employer] Patient Education 2022 SocialMedia305. Follow Up Care 02/19/2023 00:51:16 With:JUDI YOUSSEF Address: [address] [place] [address]- [phone] Business (1) When:02/22/2023 Comments:Take the pain medication as prescribed as needed for pain. Please follow-up with your primary care doctor in the next 2 to 3 days for further evaluation management. Please return to the ED for any new or worsening symptoms or [facility]08-10-2022 Hospital Discharge instructions Patient Education [...] water added (diluted fruit juice). Eat bland, bwln-bb-mgyedl foods in small amounts as you are able. These foods include bananas, applesauce, rice, lean meats, toast, and crackers. Avoid fluids that contain a lot of sugar or caffeine, such as energy drinks, sports drinks, and soda. Avoid alcohol. Avoid spicy or fatty foods. General instructions Take lzyd-fsm-pkutggk and prescription medicines only as told by your health care provider. Drink enough fluid to keep your urine pale yellow. Wash your hands often using soap and water. If soap and water are not available, use hand newspaper illustrator. Make sure that all people in your [...] eating and drinking to prevent dehydration. Take paej-dta-iavbsty and prescription medicines only as told by [...] 08/22/2006 Document Revised: 12/14/2019 Document Reviewed: 01/30/2019 [employer] Patient Education 2020 SocialMedia305. Follow Up Care 01/28/2022 13:58:23 With:Monique Marquez CNP Address: When:3 months [facility] 05-26-2022 Hospital Discharge [...] any symptoms. However, many people who have Pearec's esophagus also have gastroesophageal reflux disease (GERD), [...] drinks. ?Tomatoes and foods made with tomatoes. ?Pearl or spicy foods. ?Chocolate and peppermint. Do not drink alcohol. General instructions Take lkqa-wrz-lmttptd and prescription medicines only as told by [...] 11/11/2004 Document Revised: 12/18/2018 Document Reviewed: 12/18/2018 [employer] Patient Education 2020 SocialMedia305. Follow Up Care 01/13/2022 12:36:01 With:Monique Marquez CNP Address: When:3 months [facility] 05-09-2022 Hospital Discharge instructions Patient Education 01/11/2022 09:56:58 Endoscopy, Care After Procedure [facility] Care After Procedure Please read [...] Document Re-Released: 02/13/2007 ExitCare Patient Information 2010 Spinzo. 01/11/2022 09:56:58 Pearce's Esophagus Pearce's Esophagus Pearce's [...] drinks. ?Tomatoes and foods made with tomatoes. ?Pearl or spicy foods. ?Chocolate and peppermint. Do not drink alcohol. General instructions Take cplv-jve-uqhnngp and prescription medicines only as told by [...] 11/11/2004 Document Revised: 12/18/2018 Document Reviewed: 12/18/2018 [employer] Patient Education 2020 SocialMedia305. Follow Up Care 12/03/2021 15:32:26 With:Anai FORBES Address: [address] [place] [address] Business (1) When:1 to 2 weeks Comments:Call for any problems. [facility]03-30-2022 Hospital Discharge instructions Follow Up Care 12/02/2021 10:32:32 With:ROHINI MELGOZA PA-C, URL Address: [address] [place] [address] When: Unknown [facility] Evaluation + Plan note Future Appointments Appointment Date:01/11/2022 09:40:00 AM Scheduled Provider: Location:[facility] Appointment Type:Surgery FT [facility] Evaluation + Plan note Future Appointments Appointment Date:04/14/2022 03:00:00 PM Scheduled Provider:Monique Marquez CNP [facility] Appointment Type:[facility] Follow Up Future Scheduled Tests Radiology* NM Gastric Emptying Study 01/28/22 [facility] Evaluation + Plan note Future Appointments Appointment Date:04/14/2022 03:00:00 PM Scheduled Provider:Monique Marquez CNP [facility] Appointment Type:BAD Follow Up [facility] Future Appointments Appointment Date:04/20/2022 12:00:00 PM Scheduled Provider: [facility] Type:US Abdominal/Pelvis () Appointment Date:06/02/2022 09:45:00 AM Scheduled Provider:Anai FORBES MD Location[place] Appointment Type:[facility] Follow Up Future Scheduled Tests Laboratory* Fecal WBC Lactoferrin 04/14/22 * Giardia lamblia, Direct Detection EIA 04/14/22 * O & P Exam, Routine 04/14/22 * Clostridium difficile by PCR 04/14/22 * Enteric Panel by PCR 04/14/22 * CBC w/ Auto Diff 04/14/22 * Comprehensive Metabolic Panel 04/14/22 Radiology* US Abdomen Complete 04/20/22 [facility] Evaluation + Plan note Future Appointments Appointment Date:06/02/2022 09:45:00 AM Scheduled Provider:Anai FORBES MD Location:[facility] Appointment Type:[facility] Follow Up Diagnostic Tests Pending * O & P Exam, Routine 04/29/22 * Giardia lamblia, Direct Detection EIA 04/29/22 [facility] Future Appointments Appointment Date:04/02/2025 12:30:00 PM Scheduled Provider: Location:[facility] Appointment Type:Surgery FT Appointment Date:04/08/2025 11:30:00 AM Scheduled Provider:Flavio JUAREZ MD [place]LENE [facility] Appointment Type:URO Office Visit Future Scheduled Tests Laboratory* Celiac Disease Comprehensive 03/27/25 Radiology* XR Adult Swallowing Function w/ Video: Evaluate Pt, Develop a Plan of Care & Implement Plan 03/27/25 [facility] Evaluation + Plan note Future Appointments Appointment Date:04/09/2025 09:00:00 AM Scheduled Provider: [facility] Type:XR MBS Adult (FT) Appointment Date:05/10/2025 09:15:00 AM Scheduled Provider:Rambo Purcell MD Location[facility] Appointment Type:BADH Follow Up Appointment Date:10/14/2025 10:45:00 AM Scheduled Provider:Flavio JUAREZ MD Location:[facility] Appointment Type:URO Office Visit Future Scheduled Tests Laboratory* Celiac Disease Comprehensive 03/27/25 Radiology* XR Adult Swallowing Function w/ Video: Evaluate Pt, Develop a Plan of Care & Implement Plan 04/09/25 [facility] evaluation + Plan note Future Appointments Appointment Date:06/06/2025 10:00:00 AM Scheduled Provider: Location:[facility] Appointment Type:Urology CALL PAT FT Appointment Date:06/11/2025 09:30:00 AM Scheduled Provider: Location:[facility] Appointment Type:Urology FT Appointment Date:10/14/2025 10:45:00 AM Scheduled Provider:Flavio JUAREZ MD Location:[facility] Appointment Type:URO Office Visit Future Scheduled Tests Laboratory* Celiac Disease Comprehensive 03/27/25 [facility] Evaluation noteNo assessment information available [facility] Work Phone: Evaluqazyo noteNo InformationNocenterpoint medical center [employer] Other Evaluation note* Diagnosis Nausea- Primary Nausea alone Dysphagia, unspecified type documented in this encounter [facility] Diagnosis Nausea Nausea alone documented in this encounter [facility]* Diagnosis Dysphagia, unspecified type Gastroparesis History of Pricilla fundoplication Personal history of surgery to other organs [facility] Diagnosis Gastroparesis- Primary Malnutrition of moderate degree (HCC) Malnutrition of moderate degree Gastro-esophageal reflux disease without esophagitis Esophageal reflux Overweight (BMI 25.0-29.9) Overweight Dietary counseling and surveillance Dietary surveillance and counseling documented in this encounter [facility]* Diagnosis Gastroparesis- Primary documented in this encounter [facility] note* Diagnosis Onset Date Resolution Status Abdominal adhesions acuteDysphagiaacuteSmall bowel obstructionacute [facility] Work Phone: Evaluation note* Diagnosis Hypoglycemia- Primary Hypoglycemia, unspecified Encounter for dietary consultation [facility] Diagnosis Hypoglycemia Hypoglycemia, unspecified documented in this encounter [facility]* Diagnosis Other dysphagia- Primary Other dysphagia documented in this encounter [facility]* Diagnosis Ileus (HCC)- Primary Paralytic ileus Ileus (HCC) Paralytic ileus Generalized abdominal pain Abdominal pain, generalized Hypokalemia Hypopotassemia Primary hypertension Unspecified essential hypertension Gastroesophageal reflux disease with esophagitis without hemorrhage Major depressive disorder Major depressive disorder, single episode, unspecified Hypokalemia Hypopotassemia Generalized abdominal pain Abdominal pain, generalized [facility]* Diagnosis Seizure (CMS/HCC)- Primary Other convulsions History of obstructive sleep apnea Migraine without aura and without status migrainosus, not intractable (CMS/HCC) [facility]* Diagnosis Seizure (CMS/HCC)- Primary Other convulsions History of obstructive sleep apnea Migraine without aura and without status migrainosus, not intractable (CMS/HCC) Dizziness Dizziness and giddiness documented in this encounter [facility] HealthcareEvaluation note* Diagnosis Onset Date Resolution Status Admit Date Head pain acuteOctober 2024 1:06pm [facility] Work Phone: History and physical note Author Jennie Ayon [facility] May 11, 2024 10:16amNote Date/TimeSeptember 2023 10:16[place] [address] Gastroenterology H&P Signed Patient: Constantino Cardoso MR#: [id number] : 1970 Acct:[id number] Age/Sex: 53 / F Adm Date: 4 Loc: Room: Type: [facility] Attending Dr: Jennie Ayon MD Copies to: MD Judi Kamara CNP~ Date of Service: 05/11/2024 HISTORY & PHYSICAL: Patient's history with special attention to the cardiovascular, pulmonary systems and the current problem was reviewed with the patient immediately prior to the procedure. Present medications and doses reviewed in the EMR. Allergies and pertinent laboratory tests were also re viewedat this time in the EMR. The physical [...] by Jennie Ayon MD> 05/11/[address] [facility] Work Phone: History general Narrative - Reported* Type Description Date Medical History mitral valve prolapse Medical HistorygallstonesMedical HistoryAcid refluxMedical HistoryHiatal Hernia Medical HistoryheadacheSurgical HistoryhysterectomySurgical History cholecystectomySurgical Historyhiatal hernia repairHospitalization Historysee aboveHospitalization Historykindey infections hospitalized x3 [facility] Other Hospital course Narrative No data available for this section [facility] Discharge instructions No data available for this section [facility] Additional Instructions Follow-up with your primary care doctor Return to ED if develop worsening symptoms or concernsSt[facility] Work Phone: Hospital Discharge instructions Additional Instructions If your symptoms return/worsen or you develop any further concerns or symptoms please see your doctor or return to the emergency department immediately. 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 Work Phone: Hospital Discharge instructions Additional [...] problems. -Follow up with PCP. -Office number [phone]. [facility] Work Phone: Hospital Discharge instructions Additional Instructions Take antibiotic as instructed until gone for your urinary tract infection You should eat small frequent meals Avoid, hot, fried foods. Avoid any caffeinated beverages Protonix daily Follow-up with your GI specialist call tomorrow for your appointment Please return here if any problems persist or worsenK[facility] Work Phone: Progress note No data available for this section [facility] for referral (narrative)* Diagnostic Procedure Only (Routine) - AuthorizedSpecialtyDiagnoses / ProceduresReferred By ContactReferred To ContactMOLECULAR & FUNCTIONAL IMAGING Diagnoses Nausea Procedures NM GASTRIC EMPTYING SOLID [place]STRIC [place] [address] [place] [id number] [facility] [address] [place] [address] Referral IDStatusLubaNoland Hospital [facility] DateExpiration DateVisits RequestedVisits [id number] Auto-Generated Referral / * Outpatient Procedure (Routine) - AuthorizedSpecialtyDiagnoses / Procedures Referred By ContactReferred To [facility] Diagnoses Nausea Procedures MANOMETRY ESOPHAGEAL ESOPHAGEAL MOTILITY STUDY W/INTERP&RPT Marques Bradley MD [address] [place] [address] [facility] [address] [place] [address] Referral IDStatusReasonStart DateExpiration DateVisits RequestedVisits [id number] Auto-Generated Referral / [facility] for referral (narrative)* Outpatient Procedure (Routine) - ClosedSpecialtyDiagnoses / ProceduresReferred By ContactReferred To Contact [facility] Diagnoses Dysphagia, unspecified type Gastroparesis History of Pricilla fundoplication Procedures EGD - THERAPEUTIC, EUS, OR TUBE INTERVENTIONS ESOPHAGOGASTRODUODENOSCOPY TRANSORAL DIAGNOSTIC STOMACH SURGERY PROCEDURE UNLISTED Marques Bradley MD [address] [place] [address] [address] Referral IDStatusReNoland Hospital [facility]oth[facility] DateExpiration DateVisits RequestedVisits [id number] Auto-Generated Referral [facility] for referral (narrative)* Outpatient Procedure (Routine) - AuthorizedSpecialtyDiagnoses / ProceduresReferred By ContactReferred To [facility] Diagnoses Gastroparesis Procedures EGD - THERAPEUTIC, EUS, OR TUBE INTERVENTIONS ESOPHAGOGASTRODUODENOSCOPY TRANSORAL DIAGNOSTIC STOMACH SURGERY PROCEDURE UNLISTED Marques Bradley MD [address] [place] [address] [address] Referral [facility]Status[facility] DateExpiration DateVisits RequestedVisits [id number] Auto-Generated Referral [facility] for referral (narrative)No reason for referral information availableSt. [facility] Work Phone: [facility] for visit Narrative* Outpatient Procedure (Routine) - ClosedSpecialtyDiagnoses / ProceduresReferred By ContactReferred To [facility] Diagnoses Dysphagia, unspecified type Gastroparesis History of Pricilla fundoplication Procedures EGD - THERAPEUTIC, EUS, OR TUBE INTERVENTIONS ESOPHAGOGASTRODUODENOSCOPY TRANSORAL DIAGNOSTIC STOMACH SURGERY PROCEDURE UNLISTED Marques Bradley MD [address] [place] [address] [facility] [address] [place] [address] Referral IDStatusReasonStart DateExpiration DateVisits RequestedVisits [id number] Auto-Generated Referral [facility] Summary Purpose Family History Relationship Condition Age at Onset Recorded Date/T daniel father Myocardial infarction Unknown Malignant neoplasmUnknownsisterSeizureUnknownHypertensionUnknown Relationship Condition Age at Onset Recorded Date/T daniel father Myocardial infarction Unknown Malignant neoplasmUnknownsisterSeizureUnknownHypertensionUnknownfatherMalignant neoplasmUnknownHeart diseaseUnknownDeceasedUnknownfamily memberDeceasedUnknown Relationship Condition Age at Onset Recorded Date/T daniel father Myocardial infarction Unknown Malignant neoplasmUnknownHeart diseaseUnknownsisterSeizureUnknownHypertension Unknownfamily memberDeceasedUnknown Advance Directives Advance Directive Response Recorded Date/ Time Advance Directives No November 23 9:23am Advance Directive Response Recorded Date/ Time Advance Directives No November 23 018 10:23am Date ActivatedDate PmxauxofxvsQlxpgwdk70/24/2024 3:16 PMDate ActivatedDate WxndlaytvlaYibeafhk82/24/2024 3:16 PM08/30/2024 6:26 PM Hospital Course Note MR#: [id number] [facility] Pt. Name: Constantino Cardoso Admitted: 08/13/2019 [...] a 49-year-old female, who was transferred to [email or web address] from [facility] with acute abdominal pain. The pain has started on Tuesday while at work. 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 The pain feels similar to when she was here in April during her stay. During that time, she was told there was nothing left for Dr. Mortensen to do and she has been following up with GI specialist in [place]. She is actually due to have an [...] up to Small b owel obstruction Dysphagia DysphagiaReason for VisitAbdominal adhesions Dysphagia Small bowel obstruction Chief Complaint follow up to Small b owel obstruction Dysphagia Dysphagia r13.0Reason for VisitAbdominal adhesions Dysphagia Small bowel obstruction Chief Complaint Admit Date Unknown December 18, 2024 8:3 4am Chief Complaint Admit Date Unknown December 18, 2024 8:3 4am cp/back pain March 12, 2025 8:04p m Chief Complaint Admit Date follow up cindy June 25, 2025 1 :06pm Reason for Visit Admit Date Head pain June 25, 2025 1 :06pm Reason for Referral SpecialtyDiagnoses / ProceduresReferred By ContactReferred To ContactRadiology Diagnoses Other dysphagia Procedures FL MODIFIED BARIUM SWALLOW W VIDEO Jose Miguel Lucero MD [address] [facility] [address] [place] [address] Referral IDStatusReasonStart DateExpiration DateVisits RequestedVisits [id number]/13/202412/13/202511 Additional Source Comments INFORMATION SOURCE (unrecogn ized section and content) DATE CREATED AUTHOR 06/03/[address] [facility] DATE CREATED AUTHOR AUTHOR'S ORGANIZ ATION 01/17/[address] [facility] DATE CREATED AUTHOR AUTHOR'S ORGANIZ ATION 04/02/2023 [facility] DATE CREATED AUTHOR AUTHOR'S ORGANIZ ATION 08/26/2023 [facility] DATE CREATED AUTHOR AUTHOR'S ORGANIZ ATION 12/03/2023 [facility] DATE CREATED AUTHOR AUTHOR'S ORGANIZ ATION 02/17/2024 [facility] DATE CREATED AUTHOR AUTHOR'S ORGANIZ ATION 02/19/2024 [facility] DATE CREATED AUTHOR AUTHOR'S ORGANIZ ATION 10/21/2024 [facility] DATE CREATED AUTHOR AUTHOR'S ORGANIZ ATION 10/22/2024 [facility] DATE CREATED AUTHOR AUTHOR'S ORGANIZ ATION 10/29/2024 [facility] DATE CREATED AUTHOR AUTHOR'S ORGANIZ ATION 01/10/2025 [facility] DATE CREATED AUTHOR AUTHOR'S ORGANIZ ATION 02/18/2025 [facility] DATE CREATED AUTHOR AUTHOR'S ORGANIZ ATION 02/27/2025 [facility] DATE CREATED AUTHOR AUTHOR'S ORGANIZ ATION 03/01/[address] [facility] DATE CREATED AUTHOR AUTHOR'S ORGANIZ ATION 03/25/2025 [facility] DATE CREATED AUTHOR AUTHOR'S ORGANIZ ATION 04/19/2025 [facility] DATE CREATED AUTHOR AUTHOR'S ORGANIZ ATION 04/20/2025 [facility] DATE CREATED AUTHOR AUTHOR'S ORGANIZ ATION 05/22/2025 [facility] DATE CREATED AUTHOR AUTHOR'S ORGANIZ ATION 06/08/2025 [facility] DATE CREATED AUTHOR AUTHOR'S ORGANIZ ATION 06/13/2025 [facility] Care Team (unrecognized sect ion and content) Team Status: Active Member Role Status Dates DONI Stovall Primary Care Provider Active Team Status: Inactive Member Role Status Dates Nicanor Perez MD Attending Provider Active Start : December 18, 2024 End: December 18, 2024 Team Status: Inactive Member Role Status Dates Kailey Mosley APRN Emergency Provider Active Start: March 12, 2025 End: March 12, 2025Pamela Joan Regina , TECHNICAL PROJECT COORDINATOR-CPrimary Care ProviderActiveStart: March 12, 2025 End: March 12, 2025 Team Status: Active Member Role Status Dates Judi Youssef TECHNICAL PROJECT COORDINATOR-C Primary Care Provider Active Start: April 13, 2024 Juarez Cruz DOAttending ProviderActiveStart: April 13, 2024 Team Status: Inactive Member Role Status Dates Judi Youssef TECHNICAL PROJECT COORDINATOR-C Primary Care Provider Active Start: April 26, 2024 End: April 26, 2024Imagabriel Ayon , MDAttending ProviderActiveStart: April 26, 2024 End: April 26, 2024 Team Status: Inactive Member Role Status Dates Judi Youssef TECHNICAL PROJECT COORDINATOR-C Primary Care Provider Active Start: May 11, 2024 End: May 11, 2024Imagabriel Ayon , MDAttending ProviderActiveStart: May 11, 2024 End: May 11, 2024 Team Status: Active Member Role Status Dates Judi Youssef TECHNICAL PROJECT COORDINATOR-C Primary Care Provider Active Start: May 11, 2024 Sage Kamaraending Provider, Other ProviderActiveStart: May 11, 2024 Team Status: Inactive Member Role Status Dates Judi Youssef TECHNICAL PROJECT COORDINATOR-C Primary Care Provider Active Start: June 19, 2024 End: June 19, 2024Imagabriel Ayon , MDAttending ProviderActiveStart: June 19, 2024 End: June 19, 2024 Team Status: Inactive Member Role Status Dates Judi Youssef TECHNICAL PROJECT COORDINATOR-C Primary Care Provider Active Zohra Mckeon ProviderActive Team Status: Inactive Member Role Status Dates Jennie Ayon MD Attending Provider Active Judi Youssef TECHNICAL PROJECT COORDINATOR-CPrimary Care ProviderActive Team Status: Inactive Member Role Status Dates Judi Youssef TECHNICAL PROJECT COORDINATOR-C Primary Care Provider Active Zohra Delatorre ProviderActiveTeam MemberRelationshipSpecialty Start DateEnd Date Joel Alejandra PCP - GeneralFaEmory [facility]04/26/18 Raf[address] [place] [phone] ReferringGeneral Surgery04/26/18Team MemberRelationshipSpecialtyStart DateEnd Date NyJoel Ansley PCP - GeneralFamily Medicine04/26/[address] [place] [phone] ReferringGeneral Surgery04/26/18Team MemberRelationshipSpecialtyStart DateEnd Date Ny Joel Sykes PCP - Generalmily Medicine04/26/[address] [place] [phone] ReferringGeneral Surgery04/26/18Team MemberRelationshipSpecialtyStart DateEnd Date Ny Joel Sykes PCP - Generalmily Medicine04/26/[address] [place] [phone] ReferringGeneral Surgery04/26/18Team MemberRelationshipSpecialtyStart DateEnd Date Ny Joel Sykes PCP - GeneralFamily Medicine04/26/[address] [place] [phone] ReferringGeneral Surgery04/26/18Team MemberRelationshipSpecialtyStart DateEnd Date Domenicobella Joel Sykes PCP - GeneralFamily Medicine04/26/18 Rafa Rangel [address] [facility] [address] [place] [phone] ReferringGeneral Surgery04/26/18Team MemberRelationshipSpecialtyStart DateEnd Date Ny Joel Sykes PCP - GeneralFamily Medicine04/26/18 [address] Rangel [address] [place] [address] [address] [place] [phone] ReferringGeneral Surgery04/26/18Team MemberRelationshipSpecialtyStart DateEnd Date Ny Joel Sykes PCP - GeneralFamily Medicine04/26/[address] [place] [address] [address] [place] [phone] ReferringGeneral Surgery04/26/18Team MemberRelationshipSpecialtyStart DateEnd Date Ny Joel Sykes PCP - GeneralFamily Medicine04/26/[address] Rangel [address] [place] [address] [address] [place] [phone] ReferringGeneral Surgery04/26/18Team MemberRelationshipSpecialtyStart DateEnd Date Joel Alejandra PCP - GeneralFamily Medicine04/26/18 Rafa Rangel [address] [phone] ReferringGeneral Surgery04/26/18Team MemberRelationshipSpecialtyStart DateEnd Date Joel Alejandra PCP - Generalmily Medicine04/26/18 Rafa Rangel [address] [place] [phone] ReferringGeneral Surgery04/26/18Team MemberRelationshipSpecialtyStart DateEnd Date Unallocated, Sherrells MD Edin [address] [place] [address] PCP - General04/25/23 Judi Youssef MD [address] [place], [place] [phone] Referring PhysicianLyman School For Boys Medicine04/25/23Team MemberRelationshipSpecialtyStart DateEnd Date Unallocated, Sherrells MD Edin [address] [place] [address] PCP - General04/25/23 Judi Youssef MD [address] [place] [address] Referring PhysicianCity Of Hope, [place]04/25/23Team MemberRelationshipSpecialtyStart DateEnd Date Unallocated, Miracle Jesus MD [address] [place] [address] PCP - General04/25/23 Judi Youssef MD [address] [place] [address] Referring PhysicianFamily Medicine04/25/23Team MemberRelationshipSpecialtyStart DateEnd Date Unallocated, Miracle Jesus MD [address] [place] [address] PCP - General04/25/23 Judi Youssef MD [address] [place] [address] Referring PhysicianFamily Medicine04/25/23Team MemberRelationshipSpecialtyStart DateEnd Date No, Pcp PCP - Wduqhfg21/13/24Team MemberRelationshipSpecialtyStart DateEnd Date Judi Youssef S, VICE ADMIRAL - BULK GAS SPECIALIST [address] [place], [place] [phone] PCP - Vkuurye23/25/24Team MemberRelationshipSpecialtyStart DateEnd Date Unallocated, Miracle Jesus MD [address] [place] [address] PCP - General04/25/23 Judi Youssef MD [address] [place], [place] [phone] Referring PhysicianFamily Medicine04/25/23 Nikki Ayoub PA [address] [address] Physician AssistantNeurology11/26/24Team MemberRelationshipSpecialtyStart DateEnd Date Unallocated, Miracle Jesus MD [facility] [place] [address] PCP - General04/25/23 Judi Youssef MD [address] [place] [address] Referring PhysicianLyman School For Boys Medicine04/25/[address]ki Ayoub PA [address] [place] [phone] Physician AssistantNeurology11/26/24Team MemberRelationshipSpecialtyStart DateEnd Date Unallocated, Noms Provider, [facility] [place] [address] PCP - General04/25/23 Judi Youssef MD [address] [place], [place] [phone] Referring PhysicianLyman School For Boys Medicine04/25/23 Nikki Ayoub PA [address] [place] [phone] Physician AssistantNeurology11/26/24Team MemberRelationshipSpecialtyStart DateEnd Date Judi Youssef APRN - REJI [address] [place] [address] PCP - Yxkzofi11/25/24 Team Status: Active Member Role/Relationship Status Dates Judi Youssef NP-C Primary Care Provider Active Team Status: Inactive Member Role/Relationship Status Dates Judi Youssef NP-C Primary Care Provider Active Start: June 25, 2025 End: June 25Debbie Ng ProviderActiveStart: June 25, 2025 End: June 25, 2025 Goals (unrecognized section and content) Goals may be documented in a n alternate section REASON FOR VISIT (unrecogniz ed section and content) ReasonCommentsAppointmentReasonCommentsCare Coordinator - OtherReasonOnset Date YdllssjnYhvcrataa12/20/2023Manometry EsophagealSpecialtyDiagnoses / Procedures Referred By ContactReferred To ContactDIGESTIVE DISEASE INSTITUTE Diagnoses Nausea Procedures MANOMETRY ESOPHAGEAL ESOPHAGEAL MOTILITY STUDY W/INTERP&RPT Marques Bradley MD [address] [place] [address] [facility] [address] [place] [address] Referral IDStatusReasonStart DateExpiration DateVisits RequestedVisits [id number] Auto-Generated Referral [id number]rjqk Education AssessmentReasonCommentsHypoglycemiaNEWReasonCommentsHypoglycemiaSpecialty Diagnoses / ProceduresReferred By ContactReferred To Contact Diagnoses Other dysphagia Other dysphagia [R13.19] Procedures AR EGD TRANSORAL BIOPSY SINGLE/MULTIPLE AR ESOPHAGOGASTRODUODENOSCOPY TRANSORAL DIAGNOSTIC AR EGD BALLOON DILATION ESOPHAGUS <30 MM DIAM ESOPHAGOGASTRODUODENOSCOPY BIOPSY Jose Miguel Lucero MD [address] [facility] [address] [place] [address] [facility] [address] [place] [address] Referral IDStatusReNoland Hospital [facility] DateExpiration DateVisits RequestedVisits [id number] PainSpecialtyDiagnoses / Procedures Referred By ContactReferred To Contact Diagnoses Ileus (HCC) Intestinal obstruction (HCC) Obdulio Justice MD [address] [address] [facility] [address] [place] [address] Referral IDStatusReasonWillow [place] DateExpiration DateVisits RequestedVisits [id number] Follow-upReasonCommentsSeizures Source Comments (unrecognize d section and content) In the event this informatio n is protected by the Federal Confidentiality of Alcohol and Drug Abuse Patient Records regulations: The Federal rules restrict any use of the information to criminally investigate or prosecute any alcohol or drug abuse patient.[facility] the event this information is protected by [...] drug abuse patient.[facility] Scheduled Active and Recently Administ ered Medications (unrecognized section and content) Medication Order/ sodium chloride flush 0.9 % injection 5-40 [...] non-viscous solutions use: Peripheral IV = 5 mLMidline or Central Line = 10 mL/lumen For viscous solutions (i.e. blood components, parenteral nutrition, contrast media, or after obtaining blood sample) use: Peripheral IV = 10 mL Midline or Central Line = 20 mL/lumen, Pre-op (day of surgery) * 1145 (Due) * 2100 (Due) Medication Order/ 0.9 % sodium chloride infusion IntraVENous, at 125 mL/hr, CONTINUOUS, Starting on Tue08/17/24 at 1145, Pre-op (day of surgery) * 1202 (New Bag - Provider: Kianna Lawson RN) * 1258 (Rate/Dose Change - Provider: Chung Renee APRN - SALVAGE MACHINE OPERATOR) Medication Order/ 0.9 % sodium chloride infusion IntraVENous, at 5-250 mL/hr, PRN, if patient receiving piggyback infusions and maintenance fluids are not ordered, Starting on Tue08/17/24 at 1120, For piggyback infusion, administer at same rate aspiggyback for a total of 25 mL. Enter [...] = 20 mL/lumen, Pre-op (day of surgery) Medication Order08/28/20230906//[id number]/ diphenhydrAMINE (BENADRYL) injection 25 mg (COMPLETED) 25 mg, IntraVENous, ONCE, 1 dose, On Tue08/28/24 at 1145, IV Push at rate not to exceed 25 mg/min. * 1211 (Given - Provider: Makayla Olson RN) docusate sodium (COLACE) capsule 100 mg 100 mg, Oral, DAILY, First dose on Tue08/29/24 at 1100, Until Discontinued, Do not crush or break. * 1156 (Given - Provider: Enedina Madden RN) * 0942 (Given - Provider: Bobbi Renee, VICKY) enoxaparin (LOVENOX) injection 40 mg 40 mg, SubCUTAneous, DAILY, First dose on Tue08/28/24 at 1545, Until Discontinued, Indication of Use: Prophylaxis-DVT/PE, Administer by deep subCUTAneous injection with pt lying down. Alternate injection sites on abdominal wall. Do not rub site after injection. Check with provider prior to any invasive procedure. * 1638 (Given - Provider: Maine Espinoza RN) * 0740 (Given - Provider: Enedina Madden RN) * 0942 (Given - Provider: Bobbi Renee RN) ketorolac (TORADOL) injection 30 mg (COMPLETED) 30 mg, IntraVENous, ONCE, 1 dose, On Tue08/28/24 at 1800 * 1733 (Given - Provider: Maine Espinoza RN) lisinopril (PRINIVIL;ZESTRIL) tablet 10 mg 10 mg, Oral, EVERY MORNING, First dose on Tue08/29/24 at 0900, Until Discontinued * 1516 (Held by provider - Provider: Chad Mclaughlin MD - Reason: Other - Comment: NPO) * 0900 (Automatically Held) * 1041 (Unheld by provider - Provider: Bere Armstrong MD) * 0942 (Given - Provider: Bobbi Renee RN) metoclopramide (REGLAN) injection 10 mg (COMPLETED) 10 mg, IntraVENous, ONCE, 1 dose, On Tue08/28/24 at 1145, IV Push: Max 10 mg over 1-2 minutes. * 1210 (Given - Provider: Makayla Olson RN) metoprolol succinate (TOPROL XL) extended release tablet 50 mg 50 mg, Oral, DAILY, First dose on Tue08/28/24 at 1545, Until Discontinued, Do not crush or chew. * 1516 (Held by provider - Provider: Chad Mclaughlin MD - Reason: Other - Comment: NPO) * 1545 (Automatically Held) * 0900 (Automatically Held) * 2111 (Unheld by provider - Provider: Sky Pearce MD) * 0942 (Given - Provider: Bobbi Renee RN) pantoprazole (PROTONIX) 40 mg in sodium chloride (PF) 0.9 % 10 mL injection (CANCELED) 40 mg, IntraVENous, DAILY, First dose on Tue08/29/24 at 0900, Reconstitute with 10 mL 0.9 % sodiumchloride and administer over at least 2 minutes. * 0740 (Given - Provider: Enedina Madden RN) * 0926 (Not Given - Provider: Bobbi Renee RN - Reason: Other - Comment: discontinued) pantoprazole (PROTONIX) tablet 40 mg 40 mg, Oral, DAILY BEFORE BREAKFAST, First dose on Tue08/31/24 at 0700, Until Discontinued, Do notcrush or break. polyethylene glycol (GLYCOLAX) packet 17 g 17 g, Oral, DAILY, First dose on Tue08/29/24 at 1100, Until Discontinued, Stir and dissolve one packet of powder (17 g) in any 4 to 8 ounces of beverage (cold, hot or room temperature) then drink * 1156 (Given - Provider: Enedina Madden RN) * 0942 (Given - Provider: Bobbi Renee, RN) potassium chloride 10 mEq/100 mL IVPB (Peripheral Line) (COMPLETED) 10 mEq, IntraVENous, EVERY HOUR, 2 doses, First dose on Tue08/29/24 at 0715, Last dose on Tue08/29/24 at 0815, at 100 mL/hr, Potassium chloride doses are limited to a maximum of six consecutive doses before reassessment of laboratory values is needed. * 0744 (New Bag - Provider: Enedina Madden RN) * 0844 (Stopped - Provider: Enedina Madden RN) * 0848 (New Bag - Provider: Enedina Madden RN) * 0948 (Stopped - Provider: Enedina Madden RN) senna (SENOKOT) tablet 8.6 mg 8.6 mg (1 tablet), Oral, 2 TIMES DAILY, First dose on Tue08/29/24 at 1100, Until Discontinued * 1156 (Given - Provider: Enedina Madden RN) * 2010 (Given - Provider: Cady Oconnor RN) * 0942 (Given - Provider: Bobbi Renee, RN) * 2100 (Due) sertraline (ZOLOFT) tablet 50 mg 50 mg, Oral, DAILY, First dose on Tue08/28/24 at 1545, Until Discontinued * 1516 (Held by provider - Provider: Chad Mclaughlin MD - Reason: Other - Comment: NPO) * 1545 (Automatically Held) * 0900 (Automatically Held) * 211 (Unheld by provider - Provider: Sky Pearce MD) * 0942 (Given - Provider: Bobbi Renee, VICKY) sodium chloride flush 0.9 % [...] non-viscous solutions use: Peripheral IV = 5 mLMidline or Central Line = 10 mL/lumen For viscous solutions (i.e. blood components, parenteral nutrition, contrast media, or after obtaining blood sample) use: Peripheral IV = 10 mL Midline or Central Line = 20 mL/lumen * 2001 (Given - Provider: Brown Richard RN) * 926 (Not Given - Provider: Enedina Madden RN - Reason: IV Fluid Infusing) * 1934 (Not Given - Provider: Cady Oconnor RN - Reason: IV Fluid Infusing) * 0942 (Given - Provider: Bobbi Renee RN) * 2099 (Due) Medication Order08/28/20230906//[id number]/ 0.9 % sodium chloride infusion (CANCELED) IntraVENous, at 75 mL/hr, CONTINUOUS, Starting on Tue08/28/24 at 1545 * 1542 (New Bag - Provider: Maine Espinoza RN) * 1542 (Rate/Dose Verify - Provider: Brown Richard RN) * 1548 (Paused - Provider: Brown Richard RN) * 1552 (Restarted - Provider: Brown Richard RN) * 1554 (Paused - Provider: Brown Richard RN) * 1733 (Restarted - Provider: Brown Richard RN) * 2341 (Rate/Dose Verify - Provider: Brown Richard RN) * 0610 (Rate/Dose Change - Provider: Brown Richard RN) * 0610 (Stopped - Provider: Brown Richard RN) dextrose 5 % and 0.9 % sodium chloride infusion (CANCELED) IntraVENous, at 50 mL/hr, CONTINUOUS, Starting on Tue08/28/24 at 2245 * 0611 (New Bag - Provider: Brown Richard RN) * 0628 (Rate/Dose Verify - Provider: Brown Richard RN) * 1405 (Stopped - Provider: Enedina Madden RN) * 1420 (Rate/Dose Verify - Provider: Enedina Madden RN) * 1723 (Rate/Dose Verify - Provider: Enedina Madden RN) potassium chloride 40 mEq in dextrose 5 % 1,000 mL infusion (CANCELED) IntraVENous, at 50 mL/hr, CONTINUOUS, Starting on Tue08/29/24 at 1245 * 1414 (New Bag - Provider: Enedina Madden RN) Medication Order 0.9 % sodium chloride infusion IntraVENous, at 5-250 mL/hr, PRN, if patient receiving piggyback infusions and maintenance fluids are not ordered, Starting on Tue08/28/24 at 1516, For piggyback infusion, administer at same rate aspiggyback for a total of 25 mL. Enter [...] PRN, Starting on Tue08/28/24 at 2309, Until Tue09/02/24 at 2308, Pain Severe (7-10), Do not administer for more than 5 days. * 0766 (Given - Provider: Brown Richard RN) * 0740 (Given - Provider: Enedina Madden RN) * 1418 (Given - Provider: Enedina Madden RN) labetalol [...] 1.4-1.6 mg/dL 2,000 mg Total Dose Given as1,000 mg IVPB x 2 doses or 2,000 [...] Starting on Tue08/28/24 at 1516, Until Discontinued, Nausea,Vomiting, Administer if oral route cannot be used. [...] mL/min. Do not chew or crush. Dissolve flavoredtablets completely in 3 to 4 ounces of [...] Tue08/28/24 at 1516, Until Discontinued, Potassium Replacement, Maygive alternative linked oral order (ordered as effervescent, packet, or liquid solution) if patientunable to tolerate tablet. K Lab Replacement Action [...] x 6 doses (60 mEq Total) Under 2.7CALL PROVIDER and administer 10 mEq IVPB x 6 doses (60 mEq Total) Infuse at 10 mEq/hr. Repeat Potassium lab 1 hour after final administration. Protocol not for use in patients with CrCl less than 30 m L/min. sodium chloride flush 0.9 % injection 5-40 [...] Midline or Central Line = 20 mL/lumen * 8879 (Given - Provider: Brown Richard RN) Order Group 1: acetaminophen (TYLENOL) tablet 650 [...] Starting on Tue08/28/24 at 1516, Until Discontinued, Nausea,Vomiting, Administer if oral route cannot be used. Group 3: potassium chloride (KLOR-CON M) extended release tablet 40 mEqJump to med 40 mEq, Oral, PRN, Starting on Tue08/28/24 at 1516, Until Discontinued, Potassium Replacement, Maygive alternative linked oral order (ordered as effervescent, packet, or liquid solution) if patientunable to tolerate tablet. K Lab Replacement Action [...] mL/min. Do not chew or crush. Dissolve flavoredtablets completely in 3 to 4 ounces of [...] x 6 doses (60 mEq Total) Under 2.7CALL PROVIDER and administer 10 mEq IVPB x 6 doses (60 mEq Total) Infuse at 10 mEq/hr. Repeat Potassium lab 1 hour after final administration. Protocol not for use in patients with CrCl less than 30 m L/min. Ordered Prescriptions (unrec ognized section and content) PrescriptionSigDispensedRefillsStart DateEnd Date polyethylene glycol (GLYCOLAX) 17 GM/SCOOP powder Take 17 g by mouth daily for 20 days 116 g senna (SENOKOT) 8.6 MG tablet Take 1 tablet by mouth daily for 15 days 15 tablet docusate (COLACE, DULCOLAX) 100 MG CAPS Take 100 mg by mouth daily for 15 days 30 capsule polyethylene glycol (GLYCOLAX) 17 GM/SCOOP powder Take 17 g by mouth daily for 20 days 116 g senna (SENOKOT) 8.6 MG tablet Take 1 tablet by mouth 2 times daily as needed for Constipation 60 tablet docusate sodium (COLACE, DULCOLAX) 100 MG CAPS Take 100 mg by mouth daily as needed for Constipation (as needed for constipation) 30 capsule FOR RECORDS PERTAINING TO PATIENTS WHO ARE [...] THE PRIMARY CLINICAL RECORDS. [facility] [employer] [facility]. provides no warranty or guarantee of the accuracy or completeness of information in this document.
[2025-08-12 09:41] LABS: Alanine Aminotransferase 28 U/L (14-59); Aspartate Amino Transferase 20 U/L (15-37); Cholesterol 231 mg/dL (<=200); HDL Cholesterol 65 mg/dL (40-60); Triglycerides 133 mg/dL (<=150); VLDL CHOLESTEROL 26.6 mg/dL
== END 2025-08-12 07:38 | disposition home or self-care (01) ==
LOC: LAB 07:40
PROVIDERS: PCP Nurse Practitioner Family; Visit Provider Internal Medicine Cardiovascular Disease
DX: E78.00 Pure hypercholesterolemia, unspecified (principal)
CPT/HCPCS: 36415; 80061; 84450; 84460

== ENCOUNTER 2025-08-23 23:46 | Emergency (ER) | payer BC, OTHER, SELFPAY ==
[2025-08-24 00:11] VITALS: BP 161/94; PULSE 46; TEMP 36.5; O2SAT 97; BMI 29.0
--- NOTE | 2025-08-24 00:15 | PC.NURSE ---
Pain to right ankle, skin pink and warm and pulses present. No redness, bruising, or swelling noted.
--- NOTE | 2025-08-24 00:21 | XR_ITS ---
[address] [address] Patient Name: CONSTANTINO CARDOSO MRN: [id number] date: 1970 Sex: F Assigned Patient Location: ER Current Patient Location: Accession/Order Number: [id number] Exam Date: 08/24/2025 00:22 Report Date: 08/24/2025 08:29 At the request of: KATHRIN VANCE MD Procedure: XR ankle LT min 3V LEFT ANKLE - 3 views CLINICAL HISTORY: injury COMPARISON: None FINDINGS: No focal soft tissue abnormality. Ankle mortise appears intact. No acute bony process. Plantar spurring. XR/XR ankle LT min 3V IMPRESSION: NO ACUTE BONY PROCESS. Impression dictated by: Tiburcio Bateman Jr., D.ONeo 08/24/2025 8:29 AM Dictation Location: [place] [address] Electronically authenticated by: [id number] Y Date: 08/24/2025 08:29
--- NOTE | 2025-08-24 00:22 | ED.LOWEXI1 ---
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 Now presents complaining of pain of the ankle. denies numbness or weakness or other injury Related Data Home Medications ?Medication ?Instructions ?Recorded ?Confirmed pantoprazole 40 mg tablet,delayed 40 mg PO DAILY 12/15/23 03/14/25 release cholecalciferol (vitamin D3) 50 50 mcg PO DAILY 04/13/24 02/08/25 mcg (2,000 unit) capsule metoprolol succinate 50 mg 50 mg PO DAILY 04/13/24 02/08/25 tablet,extended release 24 hr sertraline 50 mg tablet 50 mg PO DAILY 04/13/24 03/14/25 acarbose 25 mg tablet 25 mg PO BID 12/18/24 03/14/25 aspirin 81 mg tablet,delayed 81 mg PO DAILY 12/18/24 03/14/25 release levetiracetam 750 mg tablet 1,000 mg PO Q12H 12/18/24 03/14/25 multivitamin with folic acid 400 1 tab PO DAILY 12/18/24 02/08/25 mcg tablet (Daily-Reena (with folic acid)) promethazine 25 mg tablet 25 mg PO Q6H PRN nausea and 12/18/24 02/08/25 vomiting lisinopril 40 mg tablet 40 mg PO DAILY 02/08/25 03/14/25 metoclopramide HCl 5 mg tablet 5 mg 02/08/25 sucralfate 100 mg/mL oral 03/14/25 suspension Previous Rx's ?Medication ?Instructions ?Recorded ondansetron 4 mg disintegrating 4 mg PO Q8H PRN nausea and 04/13/24 tablet vomiting 3 days #10 tabs pantoprazole 40 mg tablet,delayed 40 mg PO DAILY 4 weeks #28 tabs 03/14/25 release (Protonix) Allergies Allergy/AdvReac Type Severity Reaction Status Date / Time cyclobenzaprine (From Allergy Severe Anaphylaxis Verified 08/24/25 00:10 Flexeril) Penicillins Allergy Intermediate Hives Verified 08/24/25 00:10 Opioid HPI Opioid Management Most Recent Pain and Opioid Data: Last Pain Scale 10 03/14/25, 18:38 Last ORT Total Score 0 11/27/23, 09:50 Last ORT Risk Category Low Risk 11/27/23, 09:50 Ur Phencyclidine Scrn, (NEGATIVE) Negative 12/18/24, 08:34 Review of Systems ROS Status of ROS 10 or more systems reviewed and unremarkable except as noted in history and below [facility] Medical History (Updated 08/24/25 @ 00:41 by Adithya Quiros MD) Partial obstruction of small intestine ?K56.600 - Partial intestinal obstruction, unspecified as to cause (ICD-10) Constipation ?K59.00 - Constipation, unspecified (ICD-10) Ileus ?K56.7 - Ileus, unspecified (ICD-10) Nausea and vomiting ?R11.2 - Nausea with vomiting, unspecified (ICD-10) GERD (gastroesophageal reflux disease) ?K21.9 - Gastro-esophageal reflux disease without esophagitis (ICD-10) Elevated troponin ?R77.8 - Other specified abnormalities of plasma proteins (ICD-10) Chronic upper abdominal pain ?R10.10 - Upper abdominal pain, unspecified (ICD-10) ?G89.29 - Other chronic pain (ICD-10) Epigastric abdominal pain ?R10.13 - Epigastric pain (ICD-10) Abdominal pain, chronic, generalized ?R10.84 - Generalized abdominal pain (ICD-10) ?G89.29 - Other chronic pain (ICD-10) Headache, migraine ?G43.909 - Migraine, unspecified, not intractable, without status migrainosus (ICD-10) Gastroparesis ?K31.84 - Gastroparesis (ICD-10) Mitral valve disorder ?I05.9 - Rheumatic mitral valve disease, unspecified (ICD-10) Surgical History 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 ?K95.89 - Other complications of other bariatric procedure (ICD-10) ?K22.4 - Dyskinesia of esophagus (ICD-10) History of hernia surgery ?Z98.890 - Other specified postprocedural states (ICD-10) ?Z87.19 - Personal history of other diseases of the digestive system (ICD-10) FH: cholecystectomy ?Z83.79 - Family history of other diseases of the digestive system (ICD-10) H/O: hysterectomy ?Z90.710 - Acquired absence of both cervix and uterus (ICD-10) Family History Father Family history of myocardial infarction Family history of cancer Grandmother Family history of diabetes mellitus Family history of stroke Sister Family history of hypertension Social History Within the past year, how often did you have a drink containing alcohol: never Within the past year, how many standard drinks containing alcohol did you have on a typical day: 1 or 2 Within the past year, how often did you have six or more drinks on one occasion: never Total score: 0 Score interpretation: A score less than 3 is consistent with normal alcohol consumption. 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 Known occupational exposures/hazards: No Highest level of school completed/degree received: high school graduate Do you want help with school or training: No Are you now , , , , never or living with a partner: In a typical week, how many times do you talk on the telephone with family, friends, or neighbors: 3 or more times per week How often do you get together with friends or relatives: 3 or more times per week How often do you attend baptist or zoroastrian services: never Do you belong to any clubs or organizations such as baptist groups unions, fraternal or athletic groups, or school groups: no Total score: 2 Score interpretation: A score of greater than or equal to 2 indicates the lowest level of social isolation. Little interest or pleasure in doing things: not at all Feeling down, depressed, or hopeless: not at all Feel stressed/tense/nervous/anxious/difficulty sleeping: not at all Due to disability, difficulty making decisions: No Do you think of yourself as: straight/heterosexual Gender Identity: female Exam Constitutional Vital Signs, click to edit/add: Last Vital Signs Temp 97.7 F 08/24/25 00:11 Pulse 46 L 08/24/25 00:11 Resp 20 08/24/25 00:11 BP 161/94 H 08/24/25 00:11 Pulse Ox 97 08/24/25 00:11 O2 Del Method Room Air 08/24/25 00:11 Common normals: no apparent distress, average body habitus, oriented x3, no limitations, healthy appearing, alert and well nourished [facility] Common normals: normocephalic and head/scalp atraumatic Eye Common normals: EOMs intact bilaterally and conjunctivae normal Respiratory Common normals: normal respiratory effort, no retractions, no use of accessory muscles and clear to auscultation bilaterally Cardio Common normals: regular rate and regular rhythm Extremity Other: normal inspection left ankle. No swelling. tenderness of the lateral malleolus. ROM decreased due to pain Neuro Common normals: oriented x3, CN's II-XII intact bilaterally, moves all extremities and no focal motor deficits Psych Appearance: grossly normal Course Vital Signs Vital signs: Vital Signs Temperature 97.7 F 08/24/25 00:11 Pulse Rate 46 L 08/24/25 00:11 Respiratory Rate 20 08/24/25 00:11 Blood Pressure 161/94 H 08/24/25 00:11 Pulse Oximetry 97 08/24/25 00:11 Oxygen Delivery Method Room Air 08/24/25 00:11 Temperature 97.7 F 08/24/25 00:11 Pulse Rate 46 L 08/24/25 00:11 Respiratory Rate 20 08/24/25 00:11 Blood Pressure 161/94 H 08/24/25 00:11 Pulse Oximetry 97 08/24/25 00:11 Oxygen Delivery Method Room Air 08/24/25 00:11 MDM - Extremity Injury (Lower) [facility] Narrative Medical decision making narrative: patient twist her left ankle at work. Now presents complaining of pain. Exam with tenderness but no gross deformity. xray per my review is neg. Patient informed of the diagnosis and discharged home Discharge Plan Discharge Chief Complaint: Extremity Injury, Lower Clinical Impression: Left ankle sprain Patient Disposition: Home, Self-Care Prescriptions / Home Meds: No Action pantoprazole 40 mg tablet,delayed release (DR/EC) 40 mg PO DAILY metoprolol succinate 50 mg tablet extended release 24 hr 50 mg PO DAILY sertraline 50 mg tablet 50 mg PO DAILY cholecalciferol (vitamin D3) 50 mcg (2,000 unit) capsule 50 mcg PO DAILY ondansetron 4 mg tablet,disintegrating 4 mg PO Q8H PRN (Reason: nausea and vomiting) 3 Days Qty: 10 0RF aspirin 81 mg tablet,delayed release (DR/EC) 81 mg PO DAILY promethazine 25 mg tablet 25 mg PO Q6H PRN (Reason: nausea and vomiting) levetiracetam 750 mg tablet 1,000 mg PO Q12H acarbose 25 mg tablet 25 mg PO BID multivitamin with folic acid [Daily-Reena (with folic acid)] 400 mcg tablet 1 tab PO DAILY sucralfate 100 mg/mL suspension pantoprazole [Protonix] 40 mg tablet,delayed release (DR/EC) 40 mg PO DAILY 28 Days Qty: 28 0RF lisinopril 40 mg tablet 40 mg PO DAILY metoclopramide HCl 5 mg tablet 5 mg Print Language: Macedonian Instructions: Ankle Sprain (ED) Additional Instructions: use ibuprofen or similar for pain. follow up with Industrial [facility] Tuesday for recheck Referrals: STEPHANIE YOUSSEF [Primary Care Provider, Family Practice] - 1 week Discharge Date/Time: 08/24/25 01:13
--- OUTSIDE RECORDS SUMMARY | 2025-08-24 00:50 | XMS_ITS | Clinical Summary ---
Author Organization [facility] Address [address] [place] [address] Care Team Providers Care Pinsetter Mechanic Automatic Name Role Phone Joel Alejandra DO Primary Care Provider [phone] Rafa Rangel Unavailable [phone] Allergies Active AllergyReactionsCriticalityNoted DateCommentsCyclobenzaprineSwellingHigh 04/28/20188806IzmvqtxfvgJwlvsrmqDcip58/24/2018 Medications * This document contains information received [...] tablet 08/25/2023ctive Active Problems ProblemNoted DateDiagnosed DateHiatal lxdgiy9904/28/2018Morbid kpxqvxo9404/28/2018 Social History Tobacco UseTypesPacks/DayYears UsedDateSmoking Tobacco: [id number] - 2011Smokeless Tobacco: Never Tobacco Cessation:Counseling Given: Not Answered Comments: still smokes Alcohol UseStandard Drinks/WeekCommentsNot Currently0 (1 standard drink = 0.6 oz pure alcohol)socialPHQ-2AnswerDate RecordedPHQ-2 tjxww55209/07/2022rea Deprivation IndexAnswerDate RecordedNational Score (1-100), lower number is lower fxir249905/06/2023State Score (1-10), lower number is lower ovwq920 Data from: https://www.neighborhoodatlas.medicine.[facility].edu/. Last address used for nwgitlgddjb[address]/06/[birth year]23CommentsNoSex and Gender InformationValueDate RecordedSex Assigned at BirthNot on fileLegal SexFemale 04/26/2018 1:47 PM EDTGender IdentityNot on fileSexual OrientationNot on file Last Filed Vital Signs Vital SignReadingTime TakenCommentsBlood Ukbnlhdh759/8108/25/2023 4:20 PM EST Xpsig219808/25/2023 4:20 PM FDNUvlyptgukth52 ??C (96.8 ??F)08/25/2023 3:48 PM EST Respiratory Uhdp225610/26/2022 4:20 PM ESTOxygen Xyhbruygnp46%08/25/2023 4:20 PM ESTInhaled Oxygen Concentration--Ifagjd47.5 kg (184 lb)08/25/2023 1:50 PM EST Sncnrt306.2 cm (5' 7 )08/25/2023 1:50 PM ESTBody Mass Index28.8208/25/2023 1:50 PM EST Plan of Treatment Health MaintenanceDue DateLast DoneCommentsAnxiety Vbdwgiryn49/23/1988Depression Jtuzlksoq57/23/1988HIV Hiredjemb50/23/1988Hepatitis C Bahthuztg22/23/1988 DTaP,Tdap,Td Vaccine (1 - Tdap)1989Hepatitis B Vaccine (1 of 3 - 19+ 3- dose series)1989Cervical Cancer Ajjkfvmyg53/23/1991Mammogram Screening 2010CT Otwfzoekxdhd54/23/2015Cologuard (FIT-DNA)2015Colonoscopy 2015Colorectal Cancer Glmxjzoud19/23/2015Diabetes Xqssuhvrn49/23/2015Fecal Occult Blood2015Lipid Jpgcqatlu09/23/5436Unhdtlsndgpof17/23/2015 Pneumococcal Vaccine: 50+ (1 of 1 - PCV)2020RSV Vaccine (1 - Risk 50-74 years 1-dose series)2020Shingrix Vaccine (1 of 2)2020Covid-19 Vaccine ( season)510/07/2022, 03/18/2022, 11/06/2021, Additional history existsInfluenza Vaccine (#1)510/01/2022 Insurance Care Teams Team MemberRelationshipSpecialtyStart DateEnd Date Joel Alejandra DO PCP - GeneralFamily Medicine04/26/18 Rafa Rangel [phone] [id number] ReferringGeneral Surgery04/26/18
--- OUTSIDE RECORDS SUMMARY | 2025-08-24 00:50 | XMS_ITS | Clinical Summary ---
Author Organization [facility] Address [address] [place] [address] Care Team Providers Care Engineer Byproduct Name Role Phone Judi Tapia REJI Primary Care Provider [phone] Allergies Active AllergyReactionsCriticalityNoted DateCommentsCyclobenzaprineOther, LxrodhzaItoq76/24/2018PenicillinsOther,Rash,QfptynkeYfvu70/24/2018 Medications MedicationSigDispense QuantityRefillsLast FilledStart DateEnd DateStatus sertraline [...] TABLET BY MOUTH BEFORE MEALS AND AT ACLXXJT86/05/2025Active Active Problems ProblemNoted DateDiagnosed DateContusion of left knee02/28/2025Pure kkhlhtpjrzfdrhaoholu83/26/2025Screening for colon kpzoxc7202/26/2025Other chest pain12/30/2024bdominal ueqyrjbxs31/10/2025Mixed incontinence urge and stress 09/14/20241409Fnekdu26/10/2025Gastroesophageal reflux disease with esophagitis without /25/4693Tvosybddrob84/25/2024Major depressive disorder 08/29/20242727Pdnriztesxyx13/09/2024Small bowel shxmsnjctzo19/27/2024symptomatic microscopic odbctxjqb58/15/6344Uhlmshukr40/12/2024arrett gorvhdyhr72/12/2024 Abdominal pain02/15/2024ark obklmp1602/15/20242849Riiobmmh04/12/2024ysphagia 02/15/2024Elevated wemrfvua05/12/2024Epigastric abdominal pain02/15/2024 Esgexgptt15/12/2470Yoxchflobknit01/12/2024Hard stool02/15/2024Heartburn 02/15/2024cid cknkim8402/15/2024Essential ohvcdqnoipeu13/12/2024History of repair of hiatal whulnh2402/15/2024Hx of urinary tract vmjhhrmew20/12/2024Irregular bowel ksbwoq9302/15/2024Kidney nzoxtt2202/15/20248432Shwlaixrm42/12/1376Ennzgprjdqpr97/12/2024 Overweight (BMI 25.0-29.9)02/15/20242950Hercpwrpisf27/12/2694Jxrrnzqo16/12/2024 Strain of lumbar apyiub7802/15/2024Urinary jkhxzvi4502/15/2024UTI (urinary tract infection)02/15/20244314Sgkwtbczvvun60/12/2024Sinus ybabefpvufi83/12/2024OE (dyspnea on exertion)02/15/2024Obstructive sleep apnea02/15/2024Former smoker 02/15/2024 Resolved Problems ProblemNoted DateDiagnosed DateResolved DateMorbid dazqhsn22 Family History Medical HistoryRelationNameCommentsCoronary artery diseaseBrotherHeart attack [...] Last Filed Vital Signs Vital SignReadingTime TakenCommentsBlood Quizaxob418/8206 9:40 AM EDT Yypga930102/28/2025 9:40 AM RUGBddodddqfke23.4 ??C (97.6 ??F)05/22/2019 1:22 PM EDTRespiratory Rate--Oxygen Suhywdzgzp79%02/28/2025 9:40 AM EDTInhaled Oxygen Concentration--Gpwyju02.7 kg (189 lb)02/28/2025 9:40 AM MCMWdmrtb258.2 cm (5' 7 )02/28/2025 9:40 AM EDTBody Mass Index29.606 9:40 AM EDT Plan of Treatment DateTypeDepartmentCare Team (Latest Contact Info)Mmthvnirssf21/26/2025 10:20 AM ESTOffice Visit [facility] [address] [place] [address] Elio Heart MD [address] [facility] [address] MS:[address] [place] [address] Health MaintenanceDue DateLast DoneCommentsCT Npzgbkhsgksy1970FIT-DNA 1970FIT1970 4662Fbugssoaroaro1970Depression Nmpzhznzo04/23/1982 Hepatitis B Vaccines (1 of 3 - 19+ 3-dose series)1989Pap Smear1991 Adult Usvkupn8205/28/1992Cervical Cancer Snmqpuzzq66/23/2000HPV/Vhbxdi9305/28/2000 Trjmdbbnc13/23/0737RVKO81COVID-19 Vaccine (2024- season) , 03/18/2022, 11/06/2021, Additional history existsInfluenza Vaccine (#1)2Colonoscopy, 05/17/2019 Colorectal Cancer Hihjhttqy17/09/2030Zoster DkcwmocmZidochaak51/17/2025, 04/27/2024HIB VaccinesAged OutNo longer eligible based on [...] Procedures Procedure NamePriorityDate/TimeAssociated DiagnosisCommentsOCCULT BLOOD X 1, XESJPIHXK50/11/2019 10:20 PM EST from Last 3 Months [...] Team MemberRelationshipSpecialtyStart DateEnd Date Judi Tapia CNP [address] [place] [address], [facility] [place] [address] PCP - GeneralFamsly Medicine02/14/24
--- OUTSIDE RECORDS SUMMARY | 2025-08-24 00:50 | XMS_ITS | Clinical Summary ---
Author Organization [facility] Address [address], [address] [place] [address] Care Team Providers Care Director Of Healthcare Systems Name Role Phone Judi Tapia DRY TRANSFER MAN - CAUSTIC PUMP OPERATOR Primary Care Provide r Allergies Active AllergyReactionsCriticalityNoted DateCommentsCyclobenzaprineOther (See Comments),AqqlutjzWepv07/24/2018 Other Reaction(s): Other, Swelling of Lip/Tongue/Throat, throat swelling RghyazpjiypniJijmYmt38/27/2024enicillinsOther (See Comments),Rash,SwellingHigh 04/28/2018 Medications MedicationSigDispense QuantityRefillsLast FilledStart [...] tablet Take 1 tablet by mouth every qtolzej50/15/2025Active polyethylene glycol (GLYCOLAX) 17 GM/SCOOP powder TAKE PER BOWEL PREP INSTRUCTIONS 238 g 5Active Active Problems ProblemNoted DateDiagnosed DateGastroesophageal reflux ibwkxqv0203/14/2025 Dysphagia, xhdgfodtnaa25/24/2025Generalized abdominal pain08/30/2024rimary wkfkmbnajthw40/25/2024Gastroesophageal reflux disease with esophagitis without hytsqadwxa02/25/2024Major depressive goisoyor58/25/3229Ljnirsrmqqf57/25/2024 Ileus08/28/2024Other yxhqjagzx92/11/2024 Resolved Problems ProblemNoted DateDiagnosed DateResolved DateScreening for colon onnzgm1902/26/2025 03/28/2025 Social History Tobacco UseTypesPacks/DayYears UsedDateSmoking Tobacco: FormerCigarettes Smokeless Tobacco: Never Tobacco Cessation:Counseling Given: Not Answered Alcohol UseStandard Drinks/WeekCommentsYes0 (1 standard drink = 0.6 oz pure alcohol)RareTRIHEALTH UtilitiesAnswerDate RecordedIn the past 12 months has the [employer], [employer], oil, or water [employer] threatened to shut off services in your [...] homeless or living in a fdc (including now)?No08/28/2024 Food InsecurityAnswerDate RecordedWithin the past 12 months, you worried that your food would run out before you got the money to buymore.Within the past 12 months, the food you bought just didn't last and you didn't have money to get more.Interpersonal Safety Domain Source: IP Abuse ScreeningAnswerDate RecordedPhysical mlwpjJkufnw44/24/2024Verbal abuseDenies 08/28/2024Emotional hbttfBvynza66/24/2024Financial rashtNklgdb26/24/2024Sexual glzemRrzpua65/24/2024CommentsNoSex and Gender InformationValueDate RecordedSex Assigned at BirthNot on fileLegal EduZclsoh29/06/2024 1:06 PM EST Gender IdentityNot on fileSexual OrientationNot on file Last Filed Vital Signs Vital SignReadingTime TakenCommentsBlood Lgptqtka315/8902/26/2025 1:20 PM EDT Rszmk057802/26/2025 1:20 PM OFQCkzxhevgzrv76.9 ??C (98.4 ??F)02/26/2025 1:20 PM EDTRespiratory Dkpk592602/26/2025 1:20 PM EDTOxygen Oebgzulsqu27%02/26/2025 1:20 PM EDTInhaled Oxygen Concentration--Wuhtjh37.3 kg (188 lb)03/18/2025 1:05 PM EDT Ahnalm357.2 cm (5' 7 )03/18/2025 1:05 PM EDTBody Mass Index29.4407 1:05 PM EDT Plan of Treatment Health MaintenanceDue DateLast DoneCommentsDepression Csrnqwydfz90/23/1982HIV jacwlb6605/28/1985Hepatitis C kpqqhi0505/28/1988DTaP/Tdap/Td vaccine (1 - Tdap) 1989Hepatitis B vaccine (1 of 3 - 19+ 3-dose series)1989Diabetes dogqpn8105/28/2005Breast cancer wfbxiq1905/28/20103673Unzeqz47/23/2010Colonoscopy 2015Colorectal Cancer Uafbig0205/28/2015FIT/FOBT: Average risk2015 Fecal-DNA (Cologuard): Average risk2015Sigmoidoscopy/CT colonography 2015Pneumococcal 50+ years Vaccine (1 of 1 - PCV)2020Flu vaccine (#1)510/2COVID-19 Vaccine ( season)2025 06/15/2022, 03/18/2022, 11/06/2021, Additional history existsShingles vaccine Vtfcimscu71/17/2025, 04/27/2024Hepatitis A vaccineAged OutNo longer eligible based [...] (Latest Code Status on File) Date ActivatedDate OmxlnfgcbmiJwfzjtze04/24/2024 3:16 PM08/30/2024 6:26 PM Care Teams Team MemberRelationshipSpecialtyStart DateEnd Date Judi Tapia, DRY TRANSFER MAN - CAUSTIC PUMP OPERATOR [address] [place] [id number] PCP - Gvimldj50/25/24
--- OUTSIDE RECORDS SUMMARY | 2025-08-24 00:50 | XMS_ITS | Clinical Summary ---
Author Organization [facility] Address [address] [place] [address] Care Team Providers Care Wood Web Weaving Machine Operator Name Role Phone Unallocated, [facility] Provider Primary Care Provi christine Judi Tapia MD Unavailable Nikki Ayoub Unavailable Allergies Active AllergyReactionsCriticalityNoted DateCommentsCyclobenzaprineSwellingHigh 04/28/2018 Other Reaction(s): Other, Swelling of Lip/Tongue/Throat, throat swelling ZxpdgdyfsianaValhAwr32/27/2024enicillinsRash,UouciwyoItyo93/24/2018 Medications MedicationSigDispense QuantityRefillsLast FilledStart DateEnd DateStatus cholecalciferol (Vitamin D-3) 50 MCG (1999 UT) capsule Take 1 capsule by mouth Daily05/01/2024ctive dicyclomine (Bentyl) 20 MG tablet Take 1 tablet by mouth in the morning and 1 tablet in the evening and 1 tablet before bedtime.Active hyoscyamine (Anaspaz,Levsin) 0.125 MG tablet Take 1 tablet by mouth every 6 (six) hours if qjxiup5305/01/2024ctive lisinopril 20 MG tablet Take 20 mg [...] Immunizations ImmunizationAdministration DatesNext DueInfluenza, seasonal, injectable 06/09/2022Zoster, Yzxynmajndu10/23/2024 Family History Medical HistoryRelationNameCommentsAlcohol abuseBrotherCancerFatherDiabetes SisterHypertensionSisterThyroid diseaseSisterAlcohol abuseSonRelationNameStatus CommentsBrotherDaughterx 2AliveFatherDeceasedMotherAliveSisterAliveSonAlive Social History Tobacco UseTypesPacks/DayYears UsedDateSmoking Tobacco: FormerCigarettes Smokeless Tobacco: NeverAlcohol UseStandard Drinks/WeekCommentsNever0 (1 standard drink = 0.6 oz pure alcohol)CommentsUnknownSex and Gender InformationValueDate RecordedSex Assigned at BirthNot on fileLegal SexFemale 11/17/2022 7:39 PM EDTGender IdentityNot on fileSexual OrientationNot on file Last Filed Vital Signs Vital SignReadingTime TakenCommentsBlood Bjzedulm056/9205 2:15 PM EDT Rpovm485801/07/2025 2:15 PM EDTTemperature--Respiratory Gimd479901/07/2025 2:15 PM EDTOxygen Swbfktvydy01%01/07/2025 2:15 PM EDTInhaled Oxygen Concentration-- Wjvdmj38.3 kg (188 lb)01/07/2025 2:15 PM QKYFfisxt560.2 cm (5' 7 )01/07/2025 2:15 PM EDTBody Mass Index29.44001/07/2025 2:15 PM EDT Plan of Treatment Health MaintenanceDue DateLast DoneCommentsCT Xwzxmcpbecet1970FIT-DNA 1970FIT1970FOBT1970 4146Sffqjaquepftc1970Pap Smear1991 Cervical Cancer Jmhmfinux85/23/2000HPV/Dasisc3705/28/20009615Iaiwjhetn05/23/2010COVID- 19 Vaccine ( season)/07/2022, 03/18/2022, 11/06/2021, Additional history existsInfluenza Vaccine (#1)/2Colonoscopy , 05/17/2019Colorectal Cancer Bgtroxttd68/09/2030 Pneumococcal Vaccine: Pediatrics (0 to 5 Years) and At-Risk Patients (6 to 64 Years)Aged OutNo longer eligible based on patient's age to complete this topic Insurance Care Teams Team MemberRelationshipSpecialtyStart DateEnd Date Unallocated, [facility] MD Edin [address] [place] [address] PCP - General04/25/23 Judi Tapia MD [address] [place] [address] Referring PhysicianFamily Medicine04/25/23 Nikki Ayoub PA [address] [place] [address] Physician AssistantNeurology11/26/24
--- OUTSIDE RECORDS SUMMARY | 2025-08-24 00:50 | XMS_ITS | Clinical Summary ---
Author Organization [employer] [facility] Address [facility] [place] [address] Care Team Providers Care Fnps Name Role Phone Judi Tapia RACING SECRETARY AND HANDICAPPER-SHANK TAPER Primary Care Provider Social History Tobacco UseTypesPacks/DayYears UsedDateSmoking Tobacco: Never Assessed CommentsUnknownSex and Gender InformationValueDate RecordedSex Assigned at Not on fileLegal DtbSmxvzw00/13/2022 2:17 PM EDTGender IdentityNot on fileSexual OrientationNot on file Plan of Treatment Health MaintenanceDue DateLast DoneCommentsDepression Kjeybcuys35/23/1982Tobacco Llbwrrixe15/23/1982Adult BMI Izdwezcly25/23/1988DTaP,Tdap and Td Vaccines (1 - Tdap)1989Pap Smear1991Zoster (Shingles) Vaccine (1 of 2)2020 COVID-19 Vaccine ( season)/07/2022, 03/18/2022, 11/06/2021, Additional history existsInfluenza Opjivmf33/01/2022 Medical Devices Not on file Insurance Care Teams Team MemberRelationshipSpecialtyStart DateEnd Date Judi Tapia, RACING SECRETARY AND HANDICAPPER-SHANK TAPER [address] [facility] [place] [address] [facility] - [facility]
--- OUTSIDE RECORDS SUMMARY | 2025-08-24 00:50 | XMS_ITS | Clinical Summary ---
Author Organization [facility] Address [address] [place] [address] Phone Care Team Providers Care Service Correspondent Name Role Phone Unavailable Primary Care Provider Unavailabl e Social History Tobacco UseTypesPacks/DayYears UsedDateSmoking Tobacco: Never Assessed CommentsUnknownSex and Gender InformationValueDate RecordedSex Assigned at Not on fileLegal TphRqgrmy29/24/2023 1:11 PM EDTGender IdentityNot on fileSexual OrientationNot on file Plan of Treatment Health MaintenanceDue DateLast DoneCommentsCT Xxmzbsydcjkc1970Colonoscopy 1970Colorectal Cancer Iqeysrime1970FIT-DNA (Cologuard)1970FIT 1970HIV Hxzzexywx1970Lipid Panel1970 2697Amowwzjidesyg1970 Yearly Adult Erbgasjz1970MMR Vaccines (1 of 1 - Standard series)1971 Hepatitis C Qxepmzgdw89/23/1988Hepatitis B Vaccines (1 of 3 - 19+ 3-dose series) 1989Cervical Cancer Xwykvxavl19/23/1991HPV/Qjnevc6205/28/1991Pap Smear 1991DTaP/Tdap/Td Vaccines (1 - Tdap)05/28/19926840Isbyswlzn11/23/2010 Pneumococcal Vaccine (1 of 1 - PCV)2020Zoster Vaccines (1 of 2)2020 COVID-19 Vaccine (1 - 2024-26 season)2025Influenza Vaccine (#1)2025 HIB VaccinesAged OutNo longer eligible based on [...]
[2025-08-24] MEDS: IBUPROFEN 400 MG TABLET 800 MG PO (01:10)
== END 2025-08-24 01:13 | disposition home or self-care (01) ==
LOC: ER 08-24 00:46
PROVIDERS: Emergency Provider Internal Medicine; PCP Nurse Practitioner Family
DX: S93.402A Sprain of unspecified ligament of left ankle, initial encounter (principal); X50.1XXA Overexertion from prolonged static or awkward postures, initial encounter; Z87.891 Personal history of nicotine dependence
CPT/HCPCS: 73610; 99283